=== PATIENT | female | born 1970 | race Caucasian/White ===

== ENCOUNTER 2018-10-16 13:59 | Emergency (ER) | payer MEDICAID, SELFPAY ==
[2018-10-16 14:00] VITALS: BP 150/88; PULSE 101; PULSE 88; RESP 20; TEMP 36.6; O2SAT 96; O2SAT 97; BMI 29.0
--- NOTE | 2018-10-16 14:22 | EKG12_ITS ---
Test Reason : CP Blood Pressure : / mmHG Vent. Rate : 090 BPM Atrial Rate : 090 BPM P-R Int : 172 ms QRS Dur : 102 ms QT Int : 372 ms P-R-T Axes : 053 -53 064 degrees QTc Int : 455 ms Normal sinus rhythm Left axis deviation Septal infarct , age undetermined Abnormal ECG Confirmed by RICHY BURCH ([id number]), publishing editor GELA MCLAIN ([id number] on 10/21/2018 2:43:34 PM Referred By: ORLY Confirmed By:SARAH BURCH
--- NOTE | 2018-10-16 14:22 | ED.VIS.CHEST ---
History of Present Illness Chief Complaint: Chest Pain Informant: Patient Onset: Hours - 2.5 Activity at onset: Rest - just after eating yogurt/lunch Timing: Continuous Quality: Pain Location: Left Chest Current Severity: 10/10 Maximum Severity: 10/10 Worsened By: Nothing Relieved By: Nothing - hasn't tried any medications Associated Symptoms: - - anxious. Negative for: Nausea, Vomiting, Diaphoresis, Dyspnea, Cough, Fever, Lightheadedness, Palpitations Narrative: Patient is been having symptoms for over a month, she gets them daily. Today it is particularly severe and started just after eating while at rest. It is nonpleuritic discomfort. It occasionally radiates into her left arm but not now. She denies any new symptoms, saying that this is the same discomfort that she typically gets. She was admitted 3-4 weeks ago at [facility] for the same symptoms where she had a repeat echocardiogram showing a stable 30% ejection fraction and what appeared to be a chronic LV thrombus for which she is on aspirin. She had a heart catheterization last year that showed severe diffuse disease of her distal LAD, she was sent to [facility] for further evaluation of that and determined that it did not need any intervention at her other studies for possible connective tissue disorder were unremarkable. She states Ativan tends to help her symptoms. She has never tried antacids that she can recall recently. Prior Similar Symptoms: Yes Recent Illness/Hospitalization: Yes - [facility] September 2018 for same sx - Past Medical History (1) CAD (coronary artery disease), [place] coronary artery Status: Chronic (2) CHF (congestive heart failure) Status: Chronic (3) HTN (hypertension) Status: Chronic (4) Diabetes mellitus, type 2 Status: Chronic (5) Hyperlipidemia Status: Chronic (6) GERD (gastroesophageal reflux disease) Status: Chronic Past Medical History - Allergies and Home Meds Allergies/Adverse Reactions: Allergies latex Allergy (Verified 10/16/18 14:00) Hives Primary Care Physician: Ezra Doctor,Out of [Primary Care Provider] - Smoking Status: Current every day smoker Drugs: None Review of Systems General: Denies: Chills, Fever, Sweats Eyes: Denies: Visual changes - bilaterally, Diplopia ENT: Denies: Rhinorrhea, Sore throat Cardiovascular: Reports: Chest pain. Denies: Palpitations Respiratory: Denies: Dyspnea, Cough, Dyspnea on exertion Gastrointestinal: Denies: Abdominal pain, Nausea, Vomiting, Diarrhea, Melena, Hematochezia Genitourinary: Denies: Dysuria, Hematuria, Frequency Musculoskeletal: Denies: Neck pain, Swelling, Extremity Pain Skin: Denies: Rash, Wounds Neurological: Denies: Headache, Weakness, Numbness Psych: Reports: Anxiety. Denies: Suicidal thoughts Allergy: Denies: Swelling of the mouth, Swelling of the tongue Physical Exam Vital Signs/Narrative: Vital Signs Temp Pulse Resp BP Pulse Ox 10/16/18 14:00 97.9 F 88 20 H 150/88 H 96 Inital Vital Signs reviewed: Yes General: Well nourished, Well developed, No Acute Distress Head: Normocephalic, Atraumatic Eyes: Perrl, EOMI ENT: Moist mucous membranes, No rhinorrhea Neck: Supple, Nontender Cardiovascular: Regular rate, Regular rhythm, No murmurs, Normal S1, Normal S2 Respiratory: No distress, Chest nontender, Wheezing - occ inspiratory. Negative for: Rales, Rhonchi Abdomen: Soft, Nondistended, Normal bowel sounds, Tender - mild epigastric. Negative for: Guarding, Rebound tenderness Back: Nontender, Normal Inspection Extremities: Nontender, No edema. Negative for: Calf Tenderness Skin: Normal color, No rash, No Trauma Neurological: Alert, Oriented x3, Cranial nerves II-XII grossly intact, Normal Strength, Normal Sensation, Normal Gait Psychological: Tearful - and anxious Diagnostic/Tx/Re-eval Impressions Chest X-Ray 10/16/18 14:23 IMPRESSION: No acute cardiopulmonary process. Electronically Signed: Garrett Barahona MD at 15:22 EDT Tel , Service support , 10/16/18 14:23 Chest 1 View (Portable) [RAD] Stat Laboratory Results 10/16/18 10/16/18 14:10 14:10 WBC 13.6 H RBC 5.32 Hgb 15.2 H Hct 44.6 MCV 83.8 MCH 28.6 MCHC 34.1 RDW 13.2 RDW Differential 39.8 Plt Count 258 MPV 10.1 Immature Gran % (Auto) 0.100 Neut % (Auto) 70.1 H Lymph % (Auto) 22.2 [place] % (Auto) 5.5 Eos % (Auto) 1.8 Baso % (Auto) 0.3 Absolute Neuts (auto) 9.6 H Absolute Lymphs (auto) 3.03 Total Counted Not Reportable Sodium 140 Potassium 4.0 Chloride 104 Carbon Dioxide 30.0 Anion Gap 6 BUN 8 Creatinine 0.88 Estim Creat Clear Calc 76.85 Est GFR (MDRD) Af Amer 89 Est GFR (MDRD) Non-Af 74 BUN/Creatinine Ratio 9.1 L Glucose 165 H Calcium 9.2 Troponin I < 0.015 - Rhythm Strip Rhythm Strip: Sinus Rhythm Rate: 90 Ectopy: None - EKG Initial EKG Interpretation: Sinus Rhythm, No Acute Injury Pattern, - - left axis. anterior Q waves w/o acute injury. Prior: Unchanged REINA Risk: H/O CAD, ASA within 7 days Score: 2 - Medical Decision Making Work-up unremarkable. Patient felt only mildly improved after GI cocktail. She was additionally given Ativan and morphine which helped her before, she states she feels much better and the discomfort is barely there. Plan is for a 3-hour repeat troponin, and if negative I feel she is stable to be discharged home given the recent events during her previous admission at [facility]. ED Disposition - Plan for ED Patient: Disposition: Home or Assisted Living Diagnosis: Chest pain, unspecified, Anxiety Instructions: ED Chest Pain Atypical Unkn Cause Referrals: [facility] Doctor,Out of [Primary Care Provider] - 3-5 Days
--- NOTE | 2018-10-16 14:23 | RAD_ITS ---
STUDY: X-RAY CHEST REASON FOR EXAM: Female, 48 years old. Chest pain TECHNIQUE: Portable chest COMPARISON: 09/01/2014 FINDINGS: The lungs are clear and expanded. Normal cardiomediastinal silhouette, edmundo and pleural margins. No acute osseous or upper abdominal process. RAD/Chest 1 View (Portable) IMPRESSION: No acute cardiopulmonary process. Electronically Signed: Garrett Barahona MD at 15:22 EDT Tel , Service support ,
--- NOTE | 2018-10-16 14:27 | ED.DCSUM_ITS ---
History of Present Illness Chief Complaint: Chest Pain Informant: Patient Onset: Hours - 2.5 Activity at onset: Rest - just after eating yogurt/lunch Timing: Continuous Quality: Pain Location: Left Chest Current Severity: 10/10 Maximum Severity: 10/10 Worsened By: Nothing Relieved By: Nothing - hasn't tried any medications Associated Symptoms: - - anxious. Negative for: Nausea, Vomiting, Diaphoresis, Dyspnea, Cough, Fever, Lightheadedness, Palpitations Narrative: Patient is been having symptoms for over a month, she gets them daily. Today it is particularly severe and started just after eating while at rest. It is nonpleuritic discomfort. It occasionally radiates into her left arm but not now. She denies any new symptoms, saying that this is the same discomfort that she typically gets. She was admitted 3-4 weeks ago at [facility] for the same symptoms where she had a repeat echocardiogram showing a stable 30% ejection fraction and what appeared to be a chronic LV thrombus for which she is on aspirin. She had a heart catheterization last year that showed severe diffuse disease of her distal LAD, she was sent to [facility] for further evaluation of that and determined that it did not need any intervention at her other studies for possible connective tissue disorder were unremarkable. She states Ativan tends to help her symptoms. She has never tried antacids that she can recall recently. Prior Similar Symptoms: Yes Recent Illness/Hospitalization: Yes - [facility] September 2018 for same sx - Past Medical History (1) CAD (coronary artery disease), [place] coronary artery Status: Chronic (2) CHF (congestive heart failure) Status: Chronic (3) HTN (hypertension) Status: Chronic (4) Diabetes mellitus, type 2 Status: Chronic (5) Hyperlipidemia Status: Chronic (6) GERD (gastroesophageal reflux disease) Status: Chronic Past Medical History - Allergies and Home Meds Allergies/Adverse Reactions: Allergies latex Allergy (Verified 10/16/18 14:00) Hives Primary Care Physician: Ezra Doctor,Out of [Primary Care Provider] - Smoking Status: Current every day smoker Drugs: None Review of Systems General: Denies: Chills, Fever, Sweats Eyes: Denies: Visual changes - bilaterally, Diplopia ENT: Denies: Rhinorrhea, Sore throat Cardiovascular: Reports: Chest pain. Denies: Palpitations Respiratory: Denies: Dyspnea, Cough, Dyspnea on exertion Gastrointestinal: Denies: Abdominal pain, Nausea, Vomiting, Diarrhea, Melena, Hematochezia Genitourinary: Denies: Dysuria, Hematuria, Frequency Musculoskeletal: Denies: Neck pain, Swelling, Extremity Pain Skin: Denies: Rash, Wounds Neurological: Denies: Headache, Weakness, Numbness Psych: Reports: Anxiety. Denies: Suicidal thoughts Allergy: Denies: Swelling of the mouth, Swelling of the tongue Physical Exam Vital Signs/Narrative: Vital Signs Temp Pulse Resp BP Pulse Ox 10/16/18 14:00 97.9 F 88 20 H 150/88 H 96 Inital Vital Signs reviewed: Yes General: Well nourished, Well developed, No Acute Distress Head: Normocephalic, Atraumatic Eyes: Perrl, EOMI ENT: Moist mucous membranes, No rhinorrhea Neck: Supple, Nontender Cardiovascular: Regular rate, Regular rhythm, No murmurs, Normal S1, Normal S2 Respiratory: No distress, Chest nontender, Wheezing - occ inspiratory. Negative for: Rales, Rhonchi Abdomen: Soft, Nondistended, Normal bowel sounds, Tender - mild epigastric. Negative for: Guarding, Rebound tenderness Back: Nontender, Normal Inspection Extremities: Nontender, No edema. Negative for: Calf Tenderness Skin: Normal color, No rash, No Trauma Neurological: Alert, Oriented x3, Cranial nerves II-XII grossly intact, Normal Strength, Normal Sensation, Normal Gait Psychological: Tearful - and anxious Diagnostic/Tx/Re-eval Impressions Chest X-Ray 10/16/18 14:23 IMPRESSION: No acute cardiopulmonary process. Electronically Signed: Garrett Barahona MD at 15:22 EDT Tel , Service support , 10/16/18 14:23 Chest 1 View (Portable) [RAD] Stat Laboratory Results 10/16/18 10/16/18 14:10 14:10 WBC 13.6 H RBC 5.32 Hgb 15.2 H Hct 44.6 MCV 83.8 MCH 28.6 MCHC 34.1 RDW 13.2 RDW Differential 39.8 Plt Count 258 MPV 10.1 Immature Gran % (Auto) 0.100 Neut % (Auto) 70.1 H Lymph % (Auto) 22.2 [place] % (Auto) 5.5 Eos % (Auto) 1.8 Baso % (Auto) 0.3 Absolute Neuts (auto) 9.6 H Absolute Lymphs (auto) 3.03 Total Counted Not Reportable Sodium 140 Potassium 4.0 Chloride 104 Carbon Dioxide 30.0 Anion Gap 6 BUN 8 Creatinine 0.88 Estim Creat Clear Calc 76.85 Est GFR (MDRD) Af Amer 89 Est GFR (MDRD) Non-Af 74 BUN/Creatinine Ratio 9.1 L Glucose 165 H Calcium 9.2 Troponin I < 0.015 - Rhythm Strip Rhythm Strip: Sinus Rhythm Rate: 90 Ectopy: None - EKG Initial EKG Interpretation: Sinus Rhythm, No Acute Injury Pattern, - - left axis. anterior Q waves w/o acute injury. Prior: Unchanged REINA Risk: H/O CAD, ASA within 7 days Score: 2 - Medical Decision Making Work-up unremarkable. Patient felt only mildly improved after GI cocktail. She was additionally given Ativan and morphine which helped her before, she states she feels much better and the discomfort is barely there. Plan is for a 3-hour repeat troponin, and if negative I feel she is stable to be discharged home given the recent events during her previous admission at [facility]. ED Disposition - Plan for ED Patient: Disposition: Home or Assisted Living Diagnosis: Chest pain, unspecified, Anxiety Instructions: ED Chest Pain Atypical Unkn Cause Referrals: [facility] Doctor,Out of [Primary Care Provider] - 3-5 Days
[2018-10-16] MEDS: Mag Hydrox/Al Hydrox/Simeth 30 ML UDC PO (14:31)
[2018-10-16 14:49] LABS: Absolute Lymphocyte Count 3.03 X10^3/ul (0.83-4.51); Absolute Neutrophil Count 9.6 X10^3/uL (2.0-7.7); Anion Gap 6 (5-15); BUN 8 mg/dL (7-18); BUN/Creat Ratio 9.1 RATIO (10-20); Basophil# 0.04 X10^3/uL; Basophil% 0.3 % (0-1); Calcium,Total 9.2 mg/dL (8.5-10.1); Chloride 104 mmol/L (98-107); Creatinine, Serum 0.88 mg/dL (0.55-1.02); EST Glomerular Filtration Rate 74 mL/min (>60); Eosinophil# 0.25 X10^3/uL; Eosinophils% 1.8 % (0-5); Est Glom Filt Rate - Afr Amer 89 mL/min (>60); Estimated Creatinine Clearance 76.85 ml/min; Glucose 165 mg/dL (74-106); Hematocrit 44.6 % (37-47); Hemoglobin 15.2 g/dl (12.0-15.0); Lymphocyte # 3.03 X10^3/ul (4.0); Lymphocyte % 22.2 % (19-41); Mean Corp Hgb Conc 34.1 g/gl (32-36); Mean Corpuscular Hgb 28.6 pg (27.0-32.0); Mean Corpuscular Volume 83.8 fL (81-99); Mean Platelet Vol. 10.1 fl (6.2-12.0); Monocyte# 0.75 X10^3/uL; Monocyte% 5.5 % (0-10); Neutrophil # 9.56 X10^3/uL (2.7-7.7); Neutrophil % 70.1 % (47-70); POSITIVE COUNT NO; POSITIVE DIFFERENTIAL NO; POSITIVE MORPHOLOGY NO; Platelet Count 258 K/mm3 (150-450); RBC Distribution Width CV 13.2 % (11.6-14.6); RBC Distribution Width SD 39.8 fl (35.1-43.9); Red Blood Count 5.32 M/mm3 (4.2-5.4); Sodium Level 140 mmol/L (136-145); White Blood Count 13.6 K/mm3 (4.4-11.0)
[2018-10-16 15:04] VITALS: BP 139/86; PULSE 77; RESP 19; O2SAT 99
[2018-10-16] MEDS: Morphine 4 MG/ML Syringe IV (15:48)
[2018-10-16] MEDS: LORazepam 2 MG/ML Syringe 0.5 MG IV (15:48)
[2018-10-16 16:02] VITALS: BP 139/86; PULSE 74; RESP 18; O2SAT 99
[2018-10-16 17:11] VITALS: BP 116/75; PULSE 77; RESP 15; O2SAT 95
[2018-10-16 18:08] VITALS: BP 136/89; PULSE 75; PULSE 76; RESP 18; O2SAT 99
== END 2018-10-16 18:09 | disposition home or self-care (01) ==
PROVIDERS: Emergency Provider Emergency Medicine
DX: R07.9 Chest pain, unspecified (principal); F41.9 Anxiety disorder, unspecified; I25.10 Atherosclerotic heart disease of native coronary artery without angina pectoris; I11.0 Hypertensive heart disease with heart failure; I50.9 Heart failure, unspecified; E11.9 Type 2 diabetes mellitus without complications; E78.5 Hyperlipidemia, unspecified; K21.9 Gastro-esophageal reflux disease without esophagitis; F17.200 Nicotine dependence, unspecified, uncomplicated; Z91.040 Latex allergy status
CPT/HCPCS: 36415; 71045; 80048; 84484; 85025; 93005; 96374; 96375; 99284; A4216

== ENCOUNTER 2018-10-21 09:39 | Emergency (ER) | payer MEDICAID, SELFPAY ==
[2018-10-21 09:40] VITALS: BP 138/83; PULSE 112; RESP 22; TEMP 36.6; O2SAT 99; BMI 27.3
--- NOTE | 2018-10-21 10:02 | EKG12_ITS ---
Test Reason : SOB/CP Blood Pressure : / mmHG Vent. Rate : 107 BPM Atrial Rate : 107 BPM P-R Int : 148 ms QRS Dur : 098 ms QT Int : 352 ms P-R-T Axes : 057 -55 066 degrees QTc Int : 469 ms Sinus tachycardia Left axis deviation Septal infarct (cited on or before 06-MAR-2014), age undetermined Abnormal ECG Confirmed by TOÑO HERNANDEZ, MELVINA ([id number]), acquisitions editor FELICIA HOLCOMB ([id number]) on 10/24/2018 1:10:24 PM Referred By: DAKOTA Confirmed By:MELVINA LUNDBERG MD
--- NOTE | 2018-10-21 10:02 | RAD_ITS ---
STUDY: X-RAY CHEST REASON FOR EXAM: Female, 48 years old. Shortness of breath/dyspnea. TECHNIQUE: Single AP portable view of the chest. COMPARISON: Comparison is made with prior study dated October 16, 2018. FINDINGS: EKG electrodes are seen. The lungs are clear and expanded. Scattered calcified granulomas. There is no demonstrated pleural abnormality. Normal size heart. Normal mediastinum and edmundo. Normal visualized pulmonary arteries. Normal visualized aortic arch and descending thoracic aorta. Normal visualized thoracic spine. Normal visualized ribs, clavicles, and shoulders. There is no demonstrated abnormality of the visualized soft tissue structures of the upper abdomen. RAD/Chest 1 View (Portable) IMPRESSION: Normal x-ray examination of the chest. Electronically Signed: Ryan Tejeda, at 10:44 EDT , Service support ,
--- NOTE | 2018-10-21 10:11 | ED.DCSUM_ITS ---
- ER Visit Summary Date of Service: 10/21/18 Chief Complaint: Short of breath, nausea, chest pain History of Present Illness: The patient is a 48 F reports intermittent chest pain shortness of breath for quite some time. Patient states her PCP thought was related to reflux. Patient states the pain and shortness of breath worsened yesterday. She did have some mild vomiting yesterday. Patient has had prior heart cath and states she is a history of coronary disease. She does not have any stents. She told me she had a blood clot in my heart last year. She is not on anticoagulants. Physical Examination: Vital signs significant for heart rate of 112, otherwise unremarkable. Patient lying in bed. She is anxious and tearful. Heart is tachycardic and regular. Lung sounds are clear. She has parasternal chest wall tenderness. There is no crepitus. Abdomen is soft with mild epigastric tenderness. No guarding or rebound. Lower extremity examination was no calf tenderness or edema. Test Results: EKG is sinus tach at 107 with no acute ischemia. Portal chest x- ray is unremarkable. CBC significant for hemoglobin 15.5. Chemistry studies significant for glucose of 273. LFTs and lipase normal. Troponin and d-dimer are both negative. Emergency Department Course and Treatment: I found that patient was seen at a [facility] facility last night in the emergency room. At that time she had negative troponins x2 and an unremarkable overall work-up. Patient's work- up continues to be unremarkable. She does have reproducible chest wall tenderness. She be discharged with a short course of Toradol and redness own. She was advised her blood sugars will elevate while she is on steroids. She now tells me she has an appointment with a currency examiner in [place] tomorrow. Treatment Plan: [] Disposition: Discharge Impression: Chest wall pain This note was generated with [employer] dictation software. It may contain incorrect words, spelling, and punctuation that were not noted in review of the chart prior to signing ED Disposition - Plan for ED Patient: Disposition: Home or Assisted Living Instructions: ED Chest Pain Costochondritis Prescriptions: Prednisone [Deltasone] 40 mg PO DAILY #10 tablet Ketorolac [Toradol] 10 mg PO Q6H PRN #14 tablet PRN Reason: Pain Referrals: [facility] Doctor,Out of [NON-STAFF] -
[2018-10-21] MEDS: Morphine 4 MG/ML Syringe IV (10:35)
[2018-10-21] MEDS: Ondansetron 4 MG/2 ML Vial IV (10:36)
[2018-10-21] MEDS: 0.9% Normal Saline 1,000 ML 150 ML IV (10:36)
[2018-10-21 10:37] LABS: Absolute Lymphocyte Count 2.42 X10^3/ul (0.83-4.51); Absolute Neutrophil Count 5.8 X10^3/uL (2.0-7.7); Basophil% 1.1 % (0-1); D-Dimer Quantitative (DVT/PE) < 0.27 FEU/ug/m (0.27-0.49); Eosinophil# 0.09 X10^3/uL; Hematocrit 45.4 % (37-47); Hemoglobin 15.5 g/dl (12.0-15.0); Lymphocyte # 2.42 X10^3/ul (4.0); Lymphocyte % 26.7 % (19-41); Mean Corp Hgb Conc 34.1 g/gl (32-36); Mean Corpuscular Hgb 28.2 pg (27.0-32.0); Mean Corpuscular Volume 82.5 fL (81-99); Mean Platelet Vol. 9.6 fl (6.2-12.0); Monocyte# 0.69 X10^3/uL; Monocyte% 7.6 % (0-10); Neutrophil # 5.76 X10^3/uL (2.7-7.7); Neutrophil % 63.6 % (47-70); Platelet Count 209 K/mm3 (150-450); RBC Distribution Width CV 12.9 % (11.6-14.6); RBC Distribution Width SD 39.2 fl (35.1-43.9); White Blood Count 9.1 K/mm3 (4.4-11.0)
[2018-10-21 10:38] VITALS: BP 117/88; PULSE 109; RESP 24; O2SAT 98
[2018-10-21 10:41] LABS: Differential Indicated SCAN CRITERIA MET; POSITIVE COUNT NO; POSITIVE DIFFERENTIAL NO; POSITIVE MORPHOLOGY YES
[2018-10-21 10:48] LABS: AST(SGOT) 19 U/L (15-37); Alanine Aminotransfer ALT/SGPT 20 U/L (13-56); Albumin, Serum 3.3 g/dL (3.2-5.0); Alkaline Phosphatase 103 U/L (45-117); Anion Gap 7 (5-15); BUN 7 mg/dL (7-18); BUN/Creat Ratio 8.7 RATIO (10-20); Bilirubin, Direct 0.21 mg/dL (0.00-0.30); Calcium,Total 8.8 mg/dL (8.5-10.1); Chloride 103 mmol/L (98-107); Creatinine, Serum 0.81 mg/dL (0.55-1.02); EST Glomerular Filtration Rate 81 mL/min (>60); Est Glom Filt Rate - Afr Amer 98 mL/min (>60); Globulin 3.7 g/dL (2.2-4.2); Glucose 273 mg/dL (74-106); Lipase 76 U/L (73-393); Potassium 3.6 mmol/L (3.5-5.1); Sodium Level 137 mmol/L (136-145)
[2018-10-21 12:22] VITALS: BP 139/68; PULSE 89; RESP 15; O2SAT 97
== END 2018-10-21 12:25 | disposition home or self-care (01) ==
PROVIDERS: Emergency Provider Emergency Medicine; Family Provider Student in an Organized Health Care Education/Training Program; PCP Student in an Organized Health Care Education/Training Program
DX: R07.89 Other chest pain (principal); R11.2 Nausea with vomiting, unspecified; R06.09 Other forms of dyspnea; I25.10 Atherosclerotic heart disease of native coronary artery without angina pectoris; E11.9 Type 2 diabetes mellitus without complications; I10 Essential (primary) hypertension; E78.00 Pure hypercholesterolemia, unspecified; K21.9 Gastro-esophageal reflux disease without esophagitis; Z72.0 Tobacco use; Z79.4 Long term (current) use of insulin; Z79.82 Long term (current) use of aspirin
CPT/HCPCS: 71045; 80048; 80076; 83690; 84484; 85025; 85379; 93005; 96361; 96374; 96375; 99284; J7030; J2405

== ENCOUNTER 2020-08-11 10:57 | Emergency (ER) | payer MEDICAID, SELFPAY ==
[2020-08-11 10:58] VITALS: BP 157/110; PULSE 152; RESP 24; TEMP 36.6; O2SAT 99; BMI 28.1
--- NOTE | 2020-08-11 11:01 | ED.RN ---
PT TO ROOM-CALLED FOR EKG
--- NOTE | 2020-08-11 11:10 | CT_ITS ---
STUDY: CT ABDOMEN AND PELVIS WITH CONTRAST REASON FOR EXAM: Female, 49 years old. right abd pain RADIATION DOSAGE (If Supplied By Facility): CTDIvol = ( 17.655 ) mGy, DLP = ( 1183.22 ) mGycm TECHNIQUE: Transaxial images were obtained from the dome of the diaphragm to the symphysis pubis without oral contrast. IV 100mL Isovue-300 was administered. Sagittal and coronal images were reconstructed. Individualized dose optimization techniques were used for this CT. COMPARISON: None. FINDINGS: The visualized lung bases are unremarkable. The visualized portions of the heart are within normal limits. Normal liver. There are surgical clips in the gallbladder fossa consistent with a prior cholecystectomy. Normal spleen. Normal pancreas. There are small, circumscribed, smooth, low attenuation bilateral adrenal masses, consistent with an adrenal adenoma. Normal right kidney. There is a cyst in the left kidney measures 2 cm. Normal visualized stomach. Normal small intestine. There are multiple colonic diverticula consistent with diverticulosis. There are surgical clips in the region of the appendix consistent with a prior appendectomy. Normal abdominal aorta. Normal inferior vena cava. Normal retroperitoneum. Normal urinary bladder. Normal abdominal wall. Normal osseous structures. CT/Abdomen/Pelvis W IV Cont ONLY IMPRESSION: There is a cyst in the left kidney measures 2 cm. Electronically Signed: Jarred Gross MD at 13:45 EST Tel , Service support ,
--- NOTE | 2020-08-11 11:10 | EKG12_ITS ---
Test Reason : CP Blood Pressure : / mmHG Vent. Rate : 135 BPM Atrial Rate : 135 BPM P-R Int : 140 ms QRS Dur : 104 ms QT Int : 284 ms P-R-T Axes : 040 -55 083 degrees QTc Int : 426 ms Sinus tachycardia with occasional Premature ventricular complexes and Fusion complexes Left axis deviation Septal infarct , age undetermined Abnormal ECG Confirmed by KIERSTEN HERNANDEZ, RICHY ([id number]), metropolitan editor FELICIA HOLCOMB ([id number]) on 08/16/2020 10:15:09 A M Referred By: ROXANNE Confirmed By:SARAH BURCH MD
[2020-08-11 11:13] VITALS: BP 161/102; PULSE 136; RESP 22; TEMP 36.6; O2SAT 99
--- NOTE | 2020-08-11 11:16 | ED.VISSUMM ---
- ER Visit Summary Date of Service: 08/11/20 Chief Complaint: Abdominal pain History of Present Illness: The patient is a 49 F with right side abdominal pain over the past month. The pain is intermittent and severe. It radiates to her right side back. She said nothing seems to bring it on or make it worse. Associate with nausea, vomiting, diarrhea. Denies urinary symptoms. Denies fever. Denies bleeding. Reports a history of hernia repair remotely, cholecystectomy, and diverticulitis. She also has a history of coronary disease, CHF, diabetes, hypertension, hyperlipidemia. She is not compliant with her treatments. Physical Examination: Hypertensive, tachycardic, tachypneic, tearful. Right side abdominal tenderness. No guarding or rebound. Otherwise exam fairly unremarkable. Test Results: Labs, urine, CT pending. Emergency Department Course and Treatment: Patient was placed on a monitor. EKG showed sinus tachycardia with PVCs at a rate of 135. No sign of acute ischemia or infarction pattern. IV access obtained. She was treated with fluids, Zofran, morphine. Will check labs, urinalysis, CT. Hemoglobin 16.4, sodium 133, CO2 25, anion gap 10, glucose 452, BUN 6, total bilirubin 1.2, alkaline phosphatase 125, lipase normal. hCG negative. CT and urinalysis still pending at this time. Patient was treated with IV fluids and insulin subcutaneous. She is hyperglycemic but does not have signs of acidosis. Anion gap is normal. CO2 is 25. Recheck is pending. Patient had one isolated low blood pressure 95/45. Repeat without any intervention was 130 systolic. I believe this was an anomaly. On further recheck, her blood pressure has been normal and stable. Heart rate is in the low 100s. Patient requested additional medicine for pain. She was ordered additional dose of morphine. Repeat glucose pending. Urinalysis and CT pending at the time of this entry. Repeat blood sugar was 348. Patient is drinking fluids. Received IV fluids. I spoke with her, and she actually has her medications and does not need refills or new supplies. The importance of these medications was discussed. CT shows a left kidney cyst measuring 2 cm. Nothing to explain her symptoms or pain. Patient will be referred for outpatient follow-up. She was referred to a local primary care doctor. Treatment Plan: As above Disposition: Discharge Impression: Abdominal pain, hyperglycemia This note was generated with Dragon dictation software. It may contain incorrect words, spelling, and punctuation that were not noted in review of the chart prior to signing ED Disposition - Plan for ED Patient: Referrals: NOT,DEFINED [NON-STAFF] -
[2020-08-11] MEDS: Ondansetron 4 MG/2 ML Vial IV (11:27)
[2020-08-11] MEDS: 0.9% Normal Saline 1,000 ML 1000 ML IV (11:27)
[2020-08-11] MEDS: Morphine 4 MG/ML Syringe IV ×2 (11:28→13:33)
[2020-08-11 11:30] LABS: Absolute Lymphocyte Count 2.06 X10^3/uL (0.83-4.51); Absolute Neutrophil Count 7.8 X10^3/uL (2.0-7.7); Basophil# 0.06 X10^3/uL; Basophil% 0.6 % (0-1); Eosinophil# 0.06 X10^3/uL; Eosinophils% 0.6 % (0-5); Hematocrit 48.5 % (37-47); Hemoglobin 16.4 g/dL (12.0-15.0); Lymphocyte # 2.06 X10^3/ul (4.0); Lymphocyte % 19.7 % (19-41); Mean Corp Hgb Conc 33.8 g/dL (32-36); Mean Corpuscular Volume 82.8 fL (81-99); Mean Platelet Vol. 10.6 fl (6.2-12.0); Monocyte# 0.47 X10^3/uL; Monocyte% 4.5 % (0-10); NRBC Flagged by Analyzer 0 % (0-5); Neutrophil # 7.78 X10^3/uL (2.7-7.7); Neutrophil % 74.1 % (47-70); Platelet Count 263 K/mm3 (150-450); RBC Distribution Width CV 12.7 % (11.6-14.6); RBC Distribution Width SD 38.3 fl (35.1-43.9); Red Blood Count 5.86 M/mm3 (4.2-5.4); White Blood Count 10.5 K/mm3 (4.4-11.0)
[2020-08-11 11:40] LABS: Internal QC Validated? YES +Cl - CLEAR BKGD; Pregnancy, Serum, hCG Quali. NEGATIVE Negative
[2020-08-11 11:55] LABS: AST(SGOT) 30 U/L (15-37); Alanine Aminotransfer ALT/SGPT 23 U/L (13-56); Albumin, Serum 3.6 g/dL (3.2-5.0); Alkaline Phosphatase 125 U/L (45-117); Anion Gap 10 (5-15); BUN 6 mg/dL (7-18); Calcium,Total 8.9 mg/dL (8.5-10.1); Chloride 98 mmol/L (98-107); Creatinine, Serum 0.86 mg/dL (0.55-1.02); EST Glomerular Filtration Rate 75 mL/min (>60); Est Glom Filt Rate - Afr Amer 91 mL/min (>60); Globulin 3.5 g/dL (2.2-4.2); Glucose 452 mg/dL (74-106); Lipase 73 U/L (73-393); Potassium 4.8 mmol/L (3.5-5.1); Protein, Total 7.1 g/dL (6.4-8.2); Sodium Level 133 mmol/L (136-145)
[2020-08-11 12:10] VITALS: BP 95/45; PULSE 109; RESP 16; TEMP 36.4; O2SAT 95
[2020-08-11] MEDS: Insulin Lispro 100 UNIT/ML INSULN.PEN 8 UNIT SC (12:28)
[2020-08-11 13:32] VITALS: BP 120/89; PULSE 109; RESP 14; TEMP 36.4; O2SAT 98
[2020-08-11 13:41] LABS: Bedside Glucose 348 mg/dL (70-110)
[2020-08-11 13:42] LABS: Bacteria 0 SEEN /hpf (None Seen); Mucous, Urine 0 SEEN /hpf (<or=2+); Red Blood Cells-Urine 0 SEEN /hpf (0-5)
[2020-08-11 13:45] LABS: Color, Urine Yellow (Yellow); Glucose, Dipstick 1000 mg/dl (Normal); Ketone-Dipstick 5 mg/dl (Negative); Leukocyte Esterase-Dipstick 100 /ul (Negative); Nitrite-Dipstick Negative (Negative); Occult Blood-Urine 10 /ul (Negative); Protein-Dipstick 15 mg/dl (Negative); Urine Bilirubin Dipstick Negative (Negative); Urine Clarity Clear (Clear); Urine Urobilinogen Normal (Normal); Urine pH 6.5 (5.0 - 8.0)
[2020-08-11 13:50] LABS: Squamous Epithelial Cells - UA 5-10 SEEN /hpf (5-10)
[2020-08-11 13:51] LABS: White Blood Cells 0-5 SEEN /hpf (0-5)
[2020-08-11 14:04] VITALS: BP 125/89; PULSE 101; RESP 15; TEMP 36.7; O2SAT 98
--- NOTE | 2020-08-11 14:07 | ED.DEP ---
ED Disposition - Plan for ED Patient: Instructions: ED Abdominal Pain Unkn Cause Fem Prescriptions: Dicyclomine HCl [Bentyl] 20 mg PO TIDAC #20 cap Prescription Printed Referrals: Sandra Pro DO [NON-STAFF] -
== END 2020-08-11 14:20 | disposition home or self-care (01) ==
PROVIDERS: Emergency Provider Emergency Medicine
DX: R10.9 Unspecified abdominal pain (principal); R11.2 Nausea with vomiting, unspecified; R19.7 Diarrhea, unspecified; E11.65 Type 2 diabetes mellitus with hyperglycemia; N28.1 Cyst of kidney, acquired; I25.10 Atherosclerotic heart disease of native coronary artery without angina pectoris; I10 Essential (primary) hypertension; E78.5 Hyperlipidemia, unspecified; Z90.49 Acquired absence of other specified parts of digestive tract; I11.0 Hypertensive heart disease with heart failure; I50.9 Heart failure, unspecified
CPT/HCPCS: 36415; 74177; 80053; 81001; 82962; 83690; 84703; 85025; 93005; 96361; 96374; 96375; 96376; 99285; J7030; Q9967; A4216; J2405

== ENCOUNTER 2020-08-13 07:58 | Emergency (ER) | payer MEDICAID, SELFPAY ==
[2020-08-13 07:59] VITALS: BP 160/100; PULSE 134; RESP 18; TEMP 36.3; O2SAT 98; BMI 28.3
--- NOTE | 2020-08-13 08:17 | ED.VIS.GEN ---
History of Present Illness Chief Complaint: Back Informant: Patient Narrative: 49-year-old female presenting with right-sided abdominal pain in the right upper quadrant and right lower quadrant. She is status post cholecystectomy distantly. Patient denies fever or chills. Patient is having nausea. Patient states the pain is intermittent. She is not sure if it is associated with eating. General she denies constipation however she does have some diarrhea. She has no history of kidney stones. She has no urinary complaints. - Past Medical History (1) CAD (coronary artery disease), [place] coronary artery Status: Chronic (2) CHF (congestive heart failure) Status: Chronic (3) GERD (gastroesophageal reflux disease) Status: Chronic (4) HTN (hypertension) Status: Chronic (5) Hyperlipidemia Status: Chronic Past Medical History - Allergies and Home Meds Allergies/Adverse Reactions: Allergies latex Allergy (Verified 08/13/20 07:59) Hives Primary Care Physician: Care Physician,No Primary [Primary Care Provider] - Prior records reviewed: Yes Past Medical History: - - Reviewed in problem list Lives: Spouse/ Significant Other Smoking Status: Current every day smoker Alcohol: None Drugs: None Review of Systems General: Denies: Chills, Fever, Sweats Eyes: Denies: Visual changes - bilaterally, Diplopia ENT: Denies: Rhinorrhea, Sore throat Cardiovascular: Denies: Chest pain, Palpitations Respiratory: Denies: Dyspnea, Cough, Dyspnea on exertion Gastrointestinal: Reports: Abdominal pain, Nausea, Diarrhea. Denies: Constipation, Melena Genitourinary: Denies: Dysuria, Hematuria, Frequency Musculoskeletal: Denies: Myalgias, Arthralgias, Neck pain Skin: Denies: Rash, Abscess, Abrasions Neurological: Denies: Headache, Weakness, Parasthesia Psych: Denies: Depression, Anxiety, Suicidal thoughts, Suicidal ideations Physical Exam Vital Signs/Narrative: Vital Signs Temp Pulse Resp BP Pulse Ox 08/13/20 07:59 97.4 F L 134 H 18 160/100 H 98 General: Obese, No Acute Distress Head: Normocephalic, Atraumatic Eyes: Perrl, EOMI ENT: Moist mucous membranes, No rhinorrhea Cardiovascular: Regular rhythm, Tachycardia Respiratory: No distress, CTA bilaterally Abdomen: Soft, Nondistended, Tender - Tenderness to palpation right upper and right lower quadrants. Back: CVA tenderness - Right-sided CVA tenderness.. Negative for: Spinal tenderness Extremities: Nontender, No edema Skin: Normal color, No rash. Negative for: Cyanosis, Diaphoresis Neurological: Alert, Oriented x3, Cranial nerves II-XII grossly intact Psychological: Normal affect, Normal Mood Diagnostic/Tx/Re-eval Clinical Impression(s) from Imaging Studies Abdomen/Pelvis CT 08/13/20 10:34 IMPRESSION: Sigmoid diverticulosis.. There are small, circumscribed, smooth, low attenuation bilateral adrenal masses, consistent with an adrenal adenoma. There is a left renal cyst measures 2 cm. Electronically Signed: Jarred Gross MD at 12:39 EST Tel , Service support , Laboratory Data 08/13/20 08/13/20 08/13/20 08:35 08:35 09:45 WBC 8.6 RBC 6.07 H Hgb 17.0 H Hct 51.4 H MCV 84.7 MCH 28.0 MCHC 33.1 RDW Std Deviation 39.1 RDW Coeff of [place] 13.2 Plt Count 204 MPV 10.3 Immature Gran % (Auto) 0.400 Neut % (Auto) 74.4 H Lymph % (Auto) 19.4 [place] % (Auto) 4.4 Eos % (Auto) 0.8 Baso % (Auto) 0.6 Absolute Neuts (auto) 6.4 Absolute Lymphs (auto) 1.66 Nucleated RBC % 0 Sodium 135 L Potassium 4.0 Chloride 100 Carbon Dioxide 26.0 Anion Gap 9 BUN 5 L Creatinine 0.84 Estim Creat Clear Calc 79.65 Est GFR (MDRD) Af Amer 92 Est GFR (MDRD) Non-Af 76 BUN/Creatinine Ratio 5.9 L Glucose 405 H Calcium 9.4 Total Bilirubin 0.90 AST 21 ALT 21 Alkaline Phosphatase 143 H Total Protein 7.4 Albumin 3.6 Globulin 3.8 Albumin/Globulin Ratio 0.9 Lipase 78 Urine Color Yellow Urine Clarity Clear Urine pH 6.0 Ur Specific [place] 1.015 Urine Protein 15 H Urine Glucose (UA) 1000 H Urine Ketones 50 H Urine Occult Blood Negative Urine Nitrite Negative Urine Bilirubin Negative Urine Urobilinogen Normal Ur Leukocyte Esterase 25 H Urine RBC 0 SEEN Urine WBC 0-5 SEEN Ur Squamous Epith Cells 0-5 SEEN Urine Bacteria 0 SEEN Urine Mucus 0 SEEN - Medical Decision Making 49-year-old female presenting with right flank pain. She is previously been seen for this. She had a CT of the abdomen pelvis which was negative. Its noted that on her previous visit she had some hematuria. Testing today does not show this. Patient does not have a leukocytosis. Renal function and electrolytes are normal. Patient had repeat CT without contrast to determine if she has a kidney stone. This does show bilateral adrenal adenomas and a left renal cyst which I do not believe are the source of her pain. She is counseled on these findings. Patient counseled she will need to follow-up outpatient if she continues to have pain. She is given return precautions. Impression: 1. Right flank pain ED Disposition - Plan for ED Patient: Disposition: Home or Assisted Living Instructions: ED Flank Pain, Uncertain Cause Referrals: Care Physician,No Primary [Primary Care Provider] - Additional Instructions: You have incidental findings of adrenal adenomas on both kidneys. You also do have a left renal cyst measuring measuring 2 cm. You will have to follow-up with your primary care physician for further evaluation, recommendations, referrals.
[2020-08-13] MEDS: 0.9% Normal Saline 1,000 ML 1000 ML IV (08:42)
[2020-08-13] MEDS: Morphine 4 MG/ML Syringe IV ×3 (08:43→12:37)
[2020-08-13] MEDS: Ondansetron 4 MG/2 ML Vial IV (08:43)
[2020-08-13 08:49] LABS: Absolute Lymphocyte Count 1.66 X10^3/uL (0.83-4.51); Absolute Neutrophil Count 6.4 X10^3/uL (2.0-7.7); Basophil# 0.05 X10^3/uL; Basophil% 0.6 % (0-1); Eosinophil# 0.07 X10^3/uL; Eosinophils% 0.8 % (0-5); Hematocrit 51.4 % (37-47); Lymphocyte # 1.66 X10^3/ul (4.0); Lymphocyte % 19.4 % (19-41); Mean Corp Hgb Conc 33.1 g/dL (32-36); Mean Corpuscular Volume 84.7 fL (81-99); Mean Platelet Vol. 10.3 fl (6.2-12.0); Monocyte# 0.38 X10^3/uL; Monocyte% 4.4 % (0-10); NRBC Flagged by Analyzer 0 % (0-5); Neutrophil # 6.38 X10^3/uL (2.7-7.7); Neutrophil % 74.4 % (47-70); Platelet Count 204 K/mm3 (150-450); RBC Distribution Width CV 13.2 % (11.6-14.6); RBC Distribution Width SD 39.1 fl (35.1-43.9); Red Blood Count 6.07 M/mm3 (4.2-5.4); White Blood Count 8.6 K/mm3 (4.4-11.0)
[2020-08-13 09:05] LABS: ALB/GLOB Ratio 0.9 RATIO (0.9-2.4); AST(SGOT) 21 U/L (15-37); Alanine Aminotransfer ALT/SGPT 21 U/L (13-56); Albumin, Serum 3.6 g/dL (3.2-5.0); Alkaline Phosphatase 143 U/L (45-117); Anion Gap 9 (5-15); BUN 5 mg/dL (7-18); BUN/Creat Ratio 5.9 RATIO (10-20); Calcium,Total 9.4 mg/dL (8.5-10.1); Chloride 100 mmol/L (98-107); Creatinine, Serum 0.84 mg/dL (0.55-1.02); EST Glomerular Filtration Rate 76 mL/min (>60); Est Glom Filt Rate - Afr Amer 92 mL/min (>60); Estimated Creatinine Clearance 79.65 ml/min; Globulin 3.8 g/dL (2.2-4.2); Glucose 405 mg/dL (74-106); Lipase 78 U/L (73-393); Protein, Total 7.4 g/dL (6.4-8.2); Sodium Level 135 mmol/L (136-145)
[2020-08-13 09:47] LABS: Bacteria 0 SEEN /hpf (None Seen); Mucous, Urine 0 SEEN /hpf (<or=2+); Red Blood Cells-Urine 0 SEEN /hpf (0-5)
[2020-08-13 09:48] LABS: Color, Urine Yellow (Yellow); Glucose, Dipstick 1000 mg/dl (Normal); Ketone-Dipstick 50 mg/dl (Negative); Leukocyte Esterase-Dipstick 25 /ul (Negative); Nitrite-Dipstick Negative (Negative); Occult Blood-Urine Negative /ul (Negative); Protein-Dipstick 15 mg/dl (Negative); Specific Gravity, Urine 1.015 (1.002-1.030); Urine Bilirubin Dipstick Negative (Negative); Urine Clarity Clear (Clear); Urine Urobilinogen Normal (Normal)
[2020-08-13 09:54] LABS: Squamous Epithelial Cells - UA 0-5 SEEN /hpf (5-10); White Blood Cells 0-5 SEEN /hpf (0-5)
[2020-08-13 10:00] VITALS: BP 137/88; PULSE 102; RESP 16; O2SAT 95
--- NOTE | 2020-08-13 10:34 | CT_ITS ---
STUDY: CT ABDOMEN AND PELVIS WITHOUT CONTRAST REASON FOR EXAM: Female, 49 years old. Right flank pain RADIATION DOSAGE (If Supplied By Facility): CTDIvol = ( 16.58 ) mGy, DLP = ( 878.07 ) mGycm TECHNIQUE: Transaxial images were obtained from the dome of the diaphragm to the symphysis pubis without oral contrast, and without intravenous contrast. Sagittal and coronal images were reconstructed. Individualized dose optimization techniques were used for this CT. COMPARISON: None. FINDINGS: The visualized lung bases are unremarkable. The visualized portions of the heart are within normal limits. Normal liver. Normal gallbladder and extrahepatic biliary system. Normal spleen. Normal pancreas. There are small, circumscribed, smooth, low attenuation bilateral adrenal masses, consistent with an adrenal adenoma. Normal right kidney. There is a left renal cyst measures 2 cm. Normal visualized stomach. Normal small intestine. There are multiple colonic diverticula consistent with diverticulosis. There are surgical clips in the region of the appendix consistent with a prior appendectomy. Normal abdominal aorta. Normal inferior vena cava. Normal retroperitoneum. Normal urinary bladder. Normal abdominal wall. Normal osseous structures. CT/Abdomen/Pelvis without Cont IMPRESSION: Sigmoid diverticulosis.. There are small, circumscribed, smooth, low attenuation bilateral adrenal masses, consistent with an adrenal adenoma. There is a left renal cyst measures 2 cm. Electronically Signed: Jarred Gross MD at 12:39 EST Tel , Service support ,
[2020-08-13 12:46] VITALS: BP 134/90; PULSE 96; RESP 16; O2SAT 98
[2020-08-13 13:16] VITALS: BP 132/68; PULSE 74; RESP 15; O2SAT 98
== END 2020-08-13 13:40 | disposition home or self-care (01) ==
PROVIDERS: Emergency Provider Student in an Organized Health Care Education/Training Program
DX: R10.9 Unspecified abdominal pain (principal); R11.0 Nausea; N28.1 Cyst of kidney, acquired; D35.00 Benign neoplasm of unspecified adrenal gland; K57.30 Diverticulosis of large intestine without perforation or abscess without bleeding; E78.5 Hyperlipidemia, unspecified; E66.9 Obesity, unspecified; F17.200 Nicotine dependence, unspecified, uncomplicated; I25.10 Atherosclerotic heart disease of native coronary artery without angina pectoris; K21.9 Gastro-esophageal reflux disease without esophagitis; I11.0 Hypertensive heart disease with heart failure; I50.9 Heart failure, unspecified; Z90.49 Acquired absence of other specified parts of digestive tract; Z91.040 Latex allergy status
CPT/HCPCS: 74176; 80053; 81001; 83690; 85025; 96361; 96374; 96375; 96376; 99284; J7030; A4216; J2405

== ENCOUNTER 2020-12-13 10:25 | Emergency (ER) | payer MEDICAID, SELFPAY ==
[2020-12-13 10:25] VITALS: BP 139/86; PULSE 139; RESP 18; TEMP 36.2; O2SAT 96; BMI 31.3
--- NOTE | 2020-12-13 11:02 | EDS_ITS ---
HPI History of Present Illness Chief Complaint: Headache Informant: patient Onset/Context/Timing Onset: Yesterday Context: Gradual (w/ gradual worsening) Timing: Continuous Quality -Headache: Positive for Similar Prior Headaches and Throbbing Current Severity: Severe Maximum Severity: Severe Worsened by: light Relieved by: nothing Associated Symptoms/Injury Associated Symptoms: Positive for Nausea, Vomiting, Blurred Vision and Photophobia; Negative for Numbness and Tingling Injury - PLASCENCIA: Negative for Direct Trauma and Fall Narrative Narrative: Patient with history of migraines but she has not had one in a while. This 1 started yesterday morning and has progressively gotten worse and now feels severe. She has no fevers, chills, neck stiffness, mental status changes, peripheral neurologic symptoms. No recent injury. She has had laryngitis and tonsillitis recently, she states they tested her for strep and it was negative but she was put on Augmentin anyway. It has gotten a little better but she still has it. [facility] Medical History (Updated 12/13/20 @ 12:[address] Terry Oden MD) CAD (coronary artery disease), [place] coronary artery CHF (congestive heart failure) Diabetes mellitus, type 2 GERD (gastroesophageal reflux disease) HTN (hypertension) Hyperlipidemia Home Medications insulin glargine [Lantus SoloStar Pen] 40 units SUBCUT DAILY 11/04/13 [History Last Taken 10/21/18] lisinopril 10 mg PO DAILY 01/25/16 [History Last Taken 10/20/18] acetaminophen 650 mg PO Q6H PRN PRN 10/16/18 [History Last Taken 10/20/18] aspirin 81 mg PO DAILY 10/16/18 [History Last Taken 10/20/18] atorvastatin 80 mg PO QHS 10/16/18 [History Last Taken 10/20/18] insulin lispro [Humalog KwikPen] See Protocol SQ TID 10/16/18 [History Last Taken 10/21/18] metoprolol succinate 25 mg PO QHS 10/16/18 [History Last Taken 10/20/18] nitroglycerin [Nitrostat] 0.4 mg SUBLINGUAL Q5M PRN 10/16/18 [History Last Taken Unknown] omeprazole 20 mg PO QHS 10/21/18 [History Last Taken 10/20/18] ranolazine 500 mg PO BID 10/21/18 [History Last Taken 10/21/18] Allergy/AdvReac Type Severity Reaction Status Date / Time latex Allergy Hives Verified 12/13/20 10:27 Social History Smoking Status: Current every day smoker tobacco type: cigarettes ROS ROS ED Constitutional Constitutional ED: Denies chills or fever(s) Eyes Eyes: Reports blurry vision; Denies diplopia ENT ENT ED: Reports hoarseness and sore throat; Denies ear pain Cardiovascular Cardiovascular: Denies chest pain or palpitations Respiratory/Chest Respiratory/Chest: Denies cough or dyspnea Gastrointestinal Gastrointestinal: Reports nausea and vomiting; Denies abdominal pain or diarrhea Genitourinary Genitourinary ED: Denies dysuria or urinary frequency Musculoskeletal Musculoskeletal: Denies back pain or myalgias Integumentary Denies abscess or rash Neurologic Neurologic: Reports headache(s); Denies paresthesias or weakness EXAM Physical Exam Const Vital Signs: 12/13/20 10:25 Temperature 97.1 F L Temperature Source Temporal Pulse Rate 139 H Respiratory Rate 18 Blood Pressure 139/86 H Blood Pressure Mean 103 Pulse Ox 96 Oxygen Delivery Method Room Air HEENT Reports normocephalic and moist mucous membranes atraumatic Eyes PERRL, EOMs intact bilaterally and conjunctivae normal Eyes Narrative: photophobia Neck no lymphadenopathy, supple and no meningeal signs Resp normal respiratory effort and clear to auscultation bilaterally GI non-tender and non-distended Palpation: soft Extremity normal to inspection and full ROM Neuro oriented x3 and CN's II-XII intact bilaterally Sensorium / Orientation: awake and alert Speech: speech normal Gait (Neuro): normal gait Motor Exam: strength 5/5 throughout Psych mental status grossly normal Skin Lesions: no lesions Rashes: no rashes MDM MDM MDM Narrative Medical decision making narrative: Patient was treated with IV fluids, Benadryl, Toradol, Reglan she feels much better and is ready to go home. Consistent with migraine, discussed follow-up. Discharge Plan Triage Chief Complaint: Headache ED Provider: Terry Oden Dx/Rx/DC Orders Clinical Impression: Migraine headache Instructions: ED, Migraine (Classical) Prescriptions: No Action insulin glargine [Lantus Solostar U-100 Insulin] 100 UNITS/ML Pen 40 units subcut DAILY RF: 0 lisinopril 10 MG tablet 10 mg PO DAILY RF: 0 atorvastatin 80 MG tablet 80 mg PO QHS RF: 0 acetaminophen 325 MG tablet 650 mg PO Q6H PRN PRN (Reason: PAIN/FEVER) RF: 0 aspirin 81 MG tablet 81 mg PO DAILY RF: 0 nitroglycerin [Nitrostat] 0.4 MG Tab.Subl 0.4 mg sublingual Q5M PRN (Reason: CHEST PAIN) RF: 0 metoprolol succinate 25 MG Tab.Er.24h 25 mg PO QHS RF: 0 insulin lispro [Humalog KwikPen Insulin] 100 UNIT/ML Insuln.Pen See Protocol unit SQ TID RF: 0 omeprazole 20 Capsule.Dr 20 mg PO QHS RF: 0 ranolazine 500 MG tablet 500 mg PO BID RF: 0 Primary Care Provider: Ama Neff Referrals: Ama Neff [Primary Care Provider] - 3-5 Days if not improving Disposition Disposition: Home, Self Care
[2020-12-13] MEDS: proCHLORPERazine 10 MG/2 ML Vial IV (11:20)
[2020-12-13] MEDS: Ketorolac 15 MG/ML Vial IV (11:20)
[2020-12-13] MEDS: 0.9% Normal Saline 1,000 ML 999 ML IV (11:20)
[2020-12-13] MEDS: DiphenhydrAMINE 50 MG/ML Syringe 25 MG IV (11:20)
[2020-12-13 12:49] VITALS: BP 128/76; PULSE 101; RESP 16; TEMP 36.2; O2SAT 97
== END 2020-12-13 12:50 | disposition home or self-care (01) ==
PROVIDERS: Emergency Provider Emergency Medicine
DX: G43.909 Migraine, unspecified, not intractable, without status migrainosus (principal); E11.9 Type 2 diabetes mellitus without complications; E78.5 Hyperlipidemia, unspecified; I11.0 Hypertensive heart disease with heart failure; I25.10 Atherosclerotic heart disease of native coronary artery without angina pectoris; I50.9 Heart failure, unspecified; K21.9 Gastro-esophageal reflux disease without esophagitis; Z79.4 Long term (current) use of insulin; Z79.82 Long term (current) use of aspirin; Z79.899 Other long term (current) drug therapy; F17.210 Nicotine dependence, cigarettes, uncomplicated
CPT/HCPCS: 96374; 96375; 99283; J7030; A4216

== ENCOUNTER 2020-12-30 13:12 | Emergency (ER) | payer MEDICAID, SELFPAY ==
[2020-12-30 13:13] VITALS: BP 150/107; PULSE 124; RESP 20; TEMP 36.5; O2SAT 98; BMI 25.9
--- NOTE | 2020-12-30 13:40 | EKG12_ITS ---
Test Reason : CHEST PAIN Blood Pressure : / mmHG Vent. Rate : 118 BPM Atrial Rate : 118 BPM P-R Int : 154 ms QRS Dur : 098 ms QT Int : 334 ms P-R-T Axes : 067 -49 086 degrees QTc Int : 468 ms Poor data quality, interpretation may be adversely affected Sinus tachycardia Left axis deviation Minimal voltage criteria for LVH, may be normal variant Septal infarct , age undetermined Abnormal ECG Confirmed by KIERSTEN HERNANDEZ, RICHY ([id number]), publication editor FELICIA HOLCOMB ([id number]) on 01/03/2021 9:12:05 AM Referred By: GARCIA Confirmed By:SARAH BURCH MD
--- NOTE | 2020-12-30 13:40 | RAD_ITS ---
HISTORY: chest pain, nausea EXAMINATION/TECHNIQUE: XR Chest 1 View: Portable upright AP chest x-ray COMPARISON: 10/21/18 FINDINGS: LINES/DEVICES: None. LUNGS: No consolidation, edema or effusion. No pneumothorax. MEDIASTINUM AND CARDIOVASCULAR STRUCTURES: Cardiac silhouette not enlarged. Central airways and mediastinal contour are unremarkable. BONES AND SOFT TISSUES: No acute bony abnormalities. RAD/Chest 1 View (Portable) IMPRESSION: No radiographic evidence of acute cardiopulmonary disease. at 1533 Reported and signed by: Rhett Blackwood MD Electronically Signed: Rhett Blackwood MD at 15:32 EDT Tel , Service support ,
[2020-12-30 13:50] LABS: Absolute Lymphocyte Count 2.18 X10^3/uL (0.83-4.51); Absolute Neutrophil Count 11.9 X10^3/uL (2.0-7.7); Basophil# 0.07 X10^3/uL; Basophil% 0.5 % (0-1); Eosinophil# 0.11 X10^3/uL; Eosinophils% 0.7 % (0-5); Hematocrit 49.3 % (37-47); Hemoglobin 16.4 g/dL (12.0-15.0); Lymphocyte # 2.18 X10^3/ul (0.83-4.51); Lymphocyte % 14.3 % (19-41); Mean Corp Hgb Conc 33.3 g/dL (32-36); Mean Corpuscular Hgb 27.8 pg (27.0-32.0); Mean Corpuscular Volume 83.7 fL (81-99); Mean Platelet Vol. 9.3 fl (6.2-12.0); Monocyte# 0.84 X10^3/uL; Monocyte% 5.5 % (0-10); NRBC Flagged by Analyzer 0 % (0-5); Neutrophil # 11.94 X10^3/uL (2.7-7.7); Neutrophil % 78.5 % (47-70); Platelet Count 281 K/mm3 (150-450); RBC Distribution Width CV 12.7 % (11.6-14.6); RBC Distribution Width SD 38.5 fl (35.1-43.9); Red Blood Count 5.89 M/mm3 (4.2-5.4); White Blood Count 15.2 K/mm3 (4.4-11.0)
[2020-12-30 14:08] LABS: Anion Gap 6 (5-15); BUN 8 mg/dL (7-18); BUN/Creat Ratio 11.5 RATIO (10-20); Chloride 98 mmol/L (98-107); Creatinine, Serum 0.69 mg/dL (0.55-1.02); EST Glomerular Filtration Rate 95 mL/min (>60); Est Glom Filt Rate - Afr Amer 115 mL/min (>60); Estimated Creatinine Clearance 92.33 ml/min; Glucose 281 mg/dL (74-106); Sodium Level 134 mmol/L (136-145); Troponin-I HS 9.9 pg/mL (3.0-53.7)
[2020-12-30 15:21] VITALS: BP 139/99; PULSE 111; RESP 16; O2SAT 97
--- NOTE | 2020-12-30 16:10 | EDS_ITS ---
HPI History of Present Illness Chief Complaint: Chest Pain Informant: patient Narrative Narrative: Patient is a 50-year-old female with history of diabetes mellitus, GERD, hyperlipidemia and hypertension presenting chest pain, shortness of breath and nausea vomiting/abdominal pain. Patient states she had her second Covid vaccine yesterday. Patient states her symptoms started this morning and were intermittent however they progressed over the past few hours and been constant. She states has been vomiting multiple times denies any blood in her vomit. She states her bowel movements been loose but denies any melena or hematochezia. No urinary symptoms. No fever but has hot flashes/chills. No associated cough. Patient notes he does have a history of DVT/PE after she was discharged to a shelter but is not currently on any anticoagulation. She states she has a history of coronary artery disease and her heart is functioning at 30%. I presume this means she has an EF of 30%. Patient is not take any medications for her symptoms. She describes the pain is in the center of her chest and over the left. It does not radiate. [facility] Medical History (Updated 12/30/20 @ 20:[address] Martina Martínez, DO) CAD (coronary artery disease), [place] coronary artery CHF (congestive heart failure) Diabetes mellitus, type 2 GERD (gastroesophageal reflux disease) HTN (hypertension) Hyperlipidemia Home Medications insulin glargine [Lantus SoloStar Pen] 40 units SUBCUT DAILY 11/04/13 [History Last Taken 10/21/18] lisinopril 10 mg PO DAILY 01/25/16 [History Last Taken 10/20/18] acetaminophen 650 mg PO Q6H PRN PRN 10/16/18 [History Last Taken 10/20/18] aspirin 81 mg PO DAILY 10/16/18 [History Last Taken 10/20/18] atorvastatin 80 mg PO QHS 10/16/18 [History Last Taken 10/20/18] insulin lispro [Humalog KwikPen] See Protocol SQ TID 10/16/18 [History Last Taken 10/21/18] metoprolol succinate 25 mg PO QHS 10/16/18 [History Last Taken 10/20/18] nitroglycerin [Nitrostat] 0.4 mg SUBLINGUAL Q5M PRN 10/16/18 [History Last Taken Unknown] omeprazole 20 mg PO QHS 10/21/18 [History Last Taken 10/20/18] ranolazine 500 mg PO BID 10/21/18 [History Last Taken 10/21/18] amoxicillin-pot clavulanate [Augmentin] 1 tab PO BID #14 tab 12/30/20 [Rx Last Taken Unknown] hydrocodone-acetaminophen 1 tab PO Q6H PRN 3 Days #12 tab 12/30/20 [Rx Last Taken Unknown] ondansetron 4 mg PO Q8H PRN #14 tab 12/30/20 [Rx Last Taken Unknown] Allergy/AdvReac Type Severity Reaction Status Date / Time latex Allergy Hives Verified 12/30/20 13:12 Social History Smoking Status: Current every day smoker tobacco type: cigarettes ROS ROS ED Constitutional Constitutional ED: Reports chills; Denies fever(s) Eyes Eyes: Denies blurry vision or change in vision ENT ENT ED: Denies rhinorrhea or sore throat Cardiovascular Cardiovascular: Reports chest pain Respiratory/Chest Respiratory/Chest: Denies cough or dyspnea Gastrointestinal Gastrointestinal: Reports abdominal pain, diarrhea, nausea and vomiting Genitourinary Genitourinary ED: Denies dysuria or hematuria Musculoskeletal Musculoskeletal: Denies arthralgias or myalgias Integumentary Denies rash Neurologic Neurologic: Denies headache(s) or weakness EXAM Physical Exam Const Vital Signs: 12/30/20 13:13 12/30/20 15:13 12/30/20 15:14 Temperature 97.7 F L Temperature Source Temporal Pulse Rate 124 H Respiratory Rate 20 H Respiratory Pattern Normal Blood Pressure 150/107 H Blood Pressure Mean 121 Pulse Ox 98 Oxygen Delivery Method Room Air Room Air 12/30/20 15:21 12/30/20 16:18 12/30/20 17:05 Temperature Temperature Source Pulse Rate 111 H 106 H 97 Respiratory Rate 16 15 18 Respiratory Pattern Blood Pressure 139/99 H 151/98 H 133/83 H Blood Pressure Mean 112 115 99 Pulse Ox 97 98 94 Oxygen Delivery Method Room Air Room Air Room Air 12/30/20 18:50 Temperature Temperature Source Pulse Rate 95 Respiratory Rate 16 Respiratory Pattern Blood Pressure Blood Pressure Mean Pulse Ox 96 Oxygen Delivery Method Room Air Positive well nourished and well developed General Appearance ED: well developed HEENT Reports TM's clear and moist mucous membranes Tympanic Membrane ED: Yes TM's clear Eyes PERRL and EOMs intact bilaterally Neck no lymphadenopathy and supple Neck Narrative: No meningeal signs Chest Wall inspection of chest normal Resp normal respiratory effort and clear to auscultation bilaterally Cardio regular rate, regular rhythm and no murmurs GI non-distended Auscultation: normoactive bowel sounds Palpation: soft and tender other (Diffuse tenderness to palpation) Back/Spine no CVA tenderness Extremity normal to inspection General Extremety ED: Negative for edema General Extremity: Negative for edema Neuro oriented x3 and no sensory deficits noted Sensorium / Orientation: alert Motor Exam: Negative for general weakness Psych mental status grossly normal Skin no rashes or lesions noted MDM MDM MDM Narrative Medical decision making narrative: Patient is evaluated for chest pain, nausea, vomiting and loose bowel movements. She is also having chills. She has a history of coronary artery disease as well as GERD. Patient did recently have her second Covid vaccine. On exam patient appears uncomfortable and her symptoms seem to be more secondary to a GI source then cardiac. Given her history did obtain EKG, chest x-ray, belly labs and delta troponin. D-dimer is negative. Have a low suspicion for PE. EKG does not show any acute ischemic changes. Troponin is normal. Patient does have a leukocytosis and CT shows pancolitis, worse on the right versus artifact from under distention. Given patient's leukocytosis and diffuse abdominal pain I would err on the side of treating this is a colitis. Patient states that she cannot stay. That she has to go home and take care of her . Patient is counseled that she has signs of colitis throughout her entire abdomen however patient does not want to be admitted. Patient be started on Augmentin. She is given a prescription for Platter for pain control. She is also given a prescription for Zofran. She is counseled on return precautions. She verbalizes good understanding this plan. Patient continues to have abdominal pain however it does have improvement while in the emergency room. Patient discharged home in stable condition. Lab Data Attestation: I reviewed the patient's lab results. Labs: Laboratory Results - last 24 hr 12/30/20 12/30/20 12/30/20 13:41 13:41 13:41 WBC 15.2 H RBC 5.89 H Hgb 16.4 H Hct 49.3 H MCV 83.7 MCH 27.8 MCHC 33.3 RDW Std Deviation 38.5 RDW Coeff of [place] 12.7 Plt Count 281 MPV 9.3 Immature Gran % (Auto) 0.500 Neut % (Auto) 78.5 H Lymph % (Auto) 14.3 L [place] % (Auto) 5.5 Eos % (Auto) 0.7 Baso % (Auto) 0.5 Absolute Neuts (auto) 11.9 H Absolute Lymphs (auto) 2.18 Nucleated RBC % 0 D-Dimer Quant (PE/DVT) Sodium 134 L Potassium 4.0 Chloride 98 Carbon Dioxide 30.0 Anion Gap 6 BUN 8 Creatinine 0.69 Estim Creat Clear Calc 92.33 Est GFR (MDRD) Af Amer 115 Est GFR (MDRD) Non-Af 95 BUN/Creatinine Ratio 11.5 Glucose 281 H Calcium 9.0 Total Bilirubin 1.50 H Direct Bilirubin 0.29 AST 18 ALT 22 Alkaline Phosphatase 124 H Troponin I High Sens 9.9 Total Protein 7.6 Albumin 3.5 Globulin 4.1 Lipase Urine Color Urine Clarity Urine pH Ur Specific [place] Urine Protein Urine Glucose (UA) Urine Ketones Urine Occult Blood Urine Nitrite Urine Bilirubin Urine Urobilinogen Ur Leukocyte Esterase Urine RBC Urine WBC Ur Squamous Epith Cells Urine Bacteria Hyaline Casts Urine Mucus 12/30/20 12/30/20 12/30/20 13:41 16:45 18:40 WBC RBC Hgb Hct MCV MCH MCHC RDW Std Deviation RDW Coeff of [place] Plt Count MPV Immature Gran % (Auto) Neut % (Auto) Lymph % (Auto) [place] % (Auto) Eos % (Auto) Baso % (Auto) Absolute Neuts (auto) Absolute Lymphs (auto) Nucleated RBC % D-Dimer Quant (PE/DVT) 0.35 Sodium Potassium Chloride Carbon Dioxide Anion Gap BUN Creatinine Estim Creat Clear Calc Est GFR (MDRD) Af Amer Est GFR (MDRD) Non-Af BUN/Creatinine Ratio Glucose Calcium Total Bilirubin Direct Bilirubin AST ALT Alkaline Phosphatase Troponin I High Sens Total Protein Albumin Globulin Lipase 94 Urine Color Yellow Urine Clarity Sl. Cloudy Urine pH 7.0 Ur Specific [place] 1.010 Urine Protein 30 H Urine Glucose (UA) 1000 H Urine Ketones Negative Urine Occult Blood Negative Urine Nitrite Negative Urine Bilirubin Negative Urine Urobilinogen Normal Ur Leukocyte Esterase 25 H Urine RBC 0-5 SEEN Urine WBC 0-5 SEEN Ur Squamous Epith Cells 0-5 SEEN Urine Bacteria 0 SEEN Hyaline Casts 0-5 SEEN Urine Mucus 0 SEEN Radiography Chest X-Ray - ED: 1 View, Read by ED Physician, Read by Radiologist and No Acute Disease Diagnostic Testing: Radiology Impression Chest X-Ray 12/30/20 13:40 IMPRESSION: No radiographic evidence of acute cardiopulmonary disease. at 1533 Reported and signed by: Rhett Blackwood MD Electronically Signed: Rhett Blackwood MD at 15:32 EDT Tel , Service support , Abdomen/Pelvis CT 12/30/20 18:34 IMPRESSION: Diffuse colitis versus artifact of under distention. Findings most severe throughout the right colon. Individualized dose optimization techniques were used for this CT. at 1940 Reported and signed by: Rhett Blackwood MD Electronically Signed: Rhett Blackwood MD at 19:39 EDT Tel , Service support , Rhythm Strip Rhythm Strip: Sinus Tach Rate: 118 Ectopy: None EKG Initial EKG: Attestation: I personally reviewed and interpreted this EKG as follows: Interpretation: Sinus Tachycardia Comments: Sinus tachycardia at a rate of 118 Left axis deviation Minimal voltage criteria for LVH Normal ST segments T wave inversions in 1 and aVL Discharge Plan Triage Chief Complaint: Chest Pain ED Provider: Martina Martínez Dx/Rx/DC Orders Clinical Impression: Vomiting and diarrhea, Colitis, Leukocytosis, Chest pain Instructions: ED Understanding Colitis, ED Chest Pain, Uncertain Cause Prescriptions: New hydrocodone-acetaminophen 5-325 mg tablet 1 tab PO Q6H PRN (Reason: pain) 3 Days Qty: 12 RF: 0 ondansetron 4 mg tablet,disintegrating 4 mg PO Q8H PRN (Reason: nausea and vomiting) Qty: 14 RF: 0 amoxicillin-pot clavulanate [Augmentin] 875-125 mg tablet 1 tab PO BID Qty: 14 RF: 0 No Action insulin glargine [Lantus Solostar U-100 Insulin] 100 UNITS/ML insulin pen 40 units subcut DAILY RF: 0 lisinopril 10 MG tablet 10 mg PO DAILY RF: 0 atorvastatin 80 MG tablet 80 mg PO QHS RF: 0 acetaminophen 325 MG tablet 650 mg PO Q6H PRN PRN (Reason: PAIN/FEVER) RF: 0 aspirin 81 MG tablet 81 mg PO DAILY RF: 0 nitroglycerin [Nitrostat] 0.4 MG tablet, sublingual 0.4 mg sublingual Q5M PRN (Reason: CHEST PAIN) RF: 0 metoprolol succinate 25 MG tablet extended release 24 hr 25 mg PO QHS RF: 0 insulin lispro [Humalog KwikPen Insulin] 100 UNIT/ML insulin pen See Protocol unit SQ TID RF: 0 omeprazole 20 capsule,delayed release(DR/EC) 20 mg PO QHS RF: 0 ranolazine 500 MG tablet 500 mg PO BID RF: 0 Primary Care Provider: Ama Neff Referrals: Carola Flood MD [STAFF PHYSICIAN] - Ama Neff [Primary Care Provider] - Activity Restrictions/Additional Instructions: Your CT shows a lot of inflammation in your colon. I suspect this with your vomiting is what is causing majority your symptoms. Your heart looks normal today. You do not have any signs of a blood clot. Please return the emergency room if you continue to have any worsening pain, develop fever or not feeling better. Disposition Disposition: Home, Self Care
[2020-12-30] MEDS: Ondansetron 4 MG/2 ML Vial IV (16:17)
[2020-12-30] MEDS: Morphine 4 MG/ML Syringe IV ×2 (16:17→18:47)
[2020-12-30 16:18] VITALS: BP 151/98; PULSE 106; RESP 15; O2SAT 98
[2020-12-30] MEDS: 0.9% Normal Saline 1,000 ML 999 ML IV (16:18)
[2020-12-30] MEDS: Famotidine 200 MG/20 ML MDV 20 MG in 0.9% Normal Saline (Pres. free 8 ML 300 MG IV (16:39)
[2020-12-30 16:51] LABS: Lipase 94 U/L (73-393)
[2020-12-30 16:54] LABS: AST(SGOT) 18 U/L (15-37); Alanine Aminotransfer ALT/SGPT 22 U/L (13-56); Albumin, Serum 3.5 g/dL (3.2-5.0); Alkaline Phosphatase 124 U/L (45-117); Bilirubin, Direct 0.29 mg/dL (0.00-0.30); Globulin 4.1 g/dL (2.2-4.2); Protein, Total 7.6 g/dL (6.4-8.2)
[2020-12-30 17:02] LABS: D-Dimer Quantitative (DVT/PE) 0.35 FEU/ug/m (0.27-0.49)
[2020-12-30 17:05] VITALS: BP 133/83; PULSE 97; RESP 18; O2SAT 94
--- NOTE | 2020-12-30 18:34 | CT_ITS ---
HISTORY: epigastric abd pain EXAMINATION: CT Abdomen And Pelvis W/ Contrast Injection TECHNIQUE: Helically acquired images were obtained of the abdomen and pelvis following IV contrast. A radiation dose optimization technique was used for this scan. IV Contrast dosage and agent: 100mL [id number]-370 Oral contrast: None. COMPARISON: 08/13/20, 02/02/17, 01/09/15 FINDINGS: LOWER CHEST: Lung bases are clear. No cardiomegaly or pericardial effusion. LIVER: Stable 17 mm low-attenuation lesion right lobe liver. No concerning focal mass. GALLBLADDER AND BILIARY TREE: Cholecystectomy. No intra- or extrahepatic biliary ductal dilation. PANCREAS: No focal cystic or solid mass. SPLEEN: Normal size without focal cystic or solid mass. ADRENAL GLANDS: Stable bilateral nodules. KIDNEYS AND URETERS: Normal renal size and position. No hydronephrosis. PERITONEUM: No ascites or free air. BOWEL: Prior appendectomy changes. No stomach or bowel distension. Diffuse underdistention of the colon with appearance of wall thickening from the cecum through the transverse colon, less prominent through the descending and rectosigmoid colon with mild adjacent inflammatory stranding. LYMPH NODES: No enlarged mesenteric or retroperitoneal lymph nodes. VESSELS: Aorta is non-dilated. URINARY BLADDER: Unremarkable. REPRODUCTIVE ORGANS: No pelvic masses. ABDOMINAL WALL: No discrete abdominal or pelvic wall hernia. BONES: No acute or aggressive abnormality. CT/Abdomen/Pelvis W IV Cont ONLY IMPRESSION: Diffuse colitis versus artifact of under distention. Findings most severe throughout the right colon. Individualized dose optimization techniques were used for this CT. at 1940 Reported and signed by: Rhett Blackwood MD Electronically Signed: Rhett Blackwood MD at 19:39 EDT Tel , Service support ,
[2020-12-30 18:44] LABS: Bacteria 0 SEEN /hpf (None Seen); Mucous, Urine 0 SEEN /hpf (<or=2+)
[2020-12-30] MEDS: Metoclopramide 10 MG/2 ML Vial IV (18:47)
[2020-12-30 18:48] LABS: Color, Urine Yellow (Yellow); Glucose, Dipstick 1000 mg/dl (Normal); Ketone-Dipstick Negative (Negative); Leukocyte Esterase-Dipstick 25 /ul (Negative); Nitrite-Dipstick Negative (Negative); Occult Blood-Urine Negative /ul (Negative); Protein-Dipstick 30 mg/dl (Negative); Urine Bilirubin Dipstick Negative (Negative); Urine Clarity Sl. Cloudy (Clear); Urine Urobilinogen Normal (Normal)
[2020-12-30 18:50] VITALS: PULSE 95; RESP 16; O2SAT 96
[2020-12-30 19:02] LABS: Squamous Epithelial Cells - UA 0-5 SEEN /hpf (5-10)
[2020-12-30 19:03] LABS: Hyaline Cast 0-5 SEEN /lpf (0-5)
[2020-12-30 19:04] LABS: Red Blood Cells-Urine 0-5 SEEN /hpf (0-5); White Blood Cells 0-5 SEEN /hpf (0-5)
[2020-12-30] MEDS: Amox/Clavulanate 875 MG Tablet PO (20:14)
[2020-12-30 20:22] VITALS: BP 150/62; PULSE 80; RESP 16; O2SAT 99
== END 2020-12-30 20:27 | disposition home or self-care (01) ==
PROVIDERS: Emergency Provider Emergency Medicine
DX: R07.9 Chest pain, unspecified (principal); K52.9 Noninfective gastroenteritis and colitis, unspecified; E11.9 Type 2 diabetes mellitus without complications; E78.5 Hyperlipidemia, unspecified; I11.0 Hypertensive heart disease with heart failure; I25.10 Atherosclerotic heart disease of native coronary artery without angina pectoris; I50.9 Heart failure, unspecified; K21.9 Gastro-esophageal reflux disease without esophagitis; F17.210 Nicotine dependence, cigarettes, uncomplicated; Z79.4 Long term (current) use of insulin; Z79.82 Long term (current) use of aspirin; Z86.718 Personal history of other venous thrombosis and embolism
CPT/HCPCS: 71045; 74177; 80048; 80076; 81001; 83690; 84484; 85025; 85379; 93005; 96365; 96375; 96376; 99285; J7030; Q9967; A4216; J2405; J3490

== ENCOUNTER 2021-01-08 10:21 | Emergency (ER) | payer MEDICAID, SELFPAY ==
[2021-01-08 10:22] VITALS: BP 143/83; PULSE 107; RESP 18; TEMP 36.2; O2SAT 100; BMI 25.8
--- NOTE | 2021-01-08 10:41 | EX.ED.UPPERE ---
HPI History of Present Illness Chief Complaint: Upper Extremity Injury Informant: patient Onset/Context/Timing Onset: Days Context: Onset with activity Location: Left shoulder Maximum Severity: Severe Worsened by: Use and movement Associated Symptoms Associated Symptoms: Negative for Parasthesia, Weakness and Loss of Funtion Narrative Prior similar symptoms: No Recent Illness/Hospitalization: No [facility] Medical History CAD (coronary artery disease), [place] coronary artery CHF (congestive heart failure) Diabetes mellitus, type 2 GERD (gastroesophageal reflux disease) HTN (hypertension) Hyperlipidemia Home Medications insulin glargine [Lantus SoloStar Pen] 40 units SUBCUT DAILY 11/04/13 [History Last Taken 10/21/18] lisinopril 10 mg PO DAILY 01/25/16 [History Last Taken 10/20/18] acetaminophen 650 mg PO Q6H PRN PRN 10/16/18 [History Last Taken 10/20/18] aspirin 81 mg PO DAILY 10/16/18 [History Last Taken 10/20/18] atorvastatin 80 mg PO QHS 10/16/18 [History Last Taken 10/20/18] insulin lispro [Humalog KwikPen] See Protocol SQ TID 10/16/18 [History Last Taken 10/21/18] metoprolol succinate 25 mg PO QHS 10/16/18 [History Last Taken 10/20/18] nitroglycerin [Nitrostat] 0.4 mg SUBLINGUAL Q5M PRN 10/16/18 [History Last Taken Unknown] omeprazole 20 mg PO QHS 10/21/18 [History Last Taken 10/20/18] ranolazine 500 mg PO BID 10/21/18 [History Last Taken 10/21/18] amoxicillin-pot clavulanate [Augmentin] 1 tab PO BID #14 tab 12/30/20 [Rx Last Taken Unknown] hydrocodone-acetaminophen 1 tab PO Q6H PRN 3 Days #12 tab 12/30/20 [Rx Last Taken Unknown] ondansetron 4 mg PO Q8H PRN #14 tab 12/30/20 [Rx Last Taken Unknown] hydrocodone-acetaminophen 1 tab PO Q6H PRN PRN 3 Days #10 tablet 01/08/21 [Rx Last Taken Unknown] Allergy/AdvReac Type Severity Reaction Status Date / Time latex Allergy Hives Verified 01/08/21 10:22 Social History Smoking Status: Current every day smoker tobacco type: cigarettes ROS ROS ED Constitutional Constitutional ED: Denies frequent falls Eyes Eyes: Denies change in vision ENT ENT ED: Denies ear pain Cardiovascular Cardiovascular: Denies chest pain or palpitations Respiratory/Chest Respiratory/Chest: Denies cough, dyspnea or sputum Gastrointestinal Gastrointestinal: Denies nausea or vomiting Genitourinary Genitourinary ED: Denies dysuria Musculoskeletal Musculoskeletal: Reports myalgias; Denies back pain or neck pain Integumentary Denies abscess, Abrasions or rash Neurologic Neurologic: Denies headache(s), paresthesias or weakness Psychiatric Psychiatric: Denies depression Endocrine Endocrinology: Denies polyuria Hematologic/Lymphatic Hematologic/Lymphatic: Denies easy bruising Allergic/Immunologic Allergic/Immunologic ED: Denies urticaria EXAM Physical Exam Const Vital Signs: 01/08/21 10:22 Temperature 97.2 F L Temperature Source Oral Pulse Rate 107 H Respiratory Rate 18 Blood Pressure 143/83 H Blood Pressure Mean 103 Pulse Ox 100 Oxygen Delivery Method Room Air Positive well nourished and well developed General Appearance ED: well developed HEENT normocephalic and atraumatic Eyes EOMs intact bilaterally Neck supple Chest Wall inspection of chest normal Resp normal respiratory effort Cardio regular rate Back/Spine no CVA tenderness Cervical Spine: Negative for cervical spine tenderness Thoracic Spine / Upper Back: Negative for thoracic spinal tenderness Extremity Extremity Narrative: Diffuse tenderness over the left shoulder girdle. No focal tenderness. Pain with abduction of the left shoulder. No deformities. Neuro oriented x3 Sensorium / Orientation: alert Sensory Exam: No sensory level loss detected Motor Exam: strength 5/5 throughout Psych Mood & Affect: tearful Skin Lesions: no lesions Rashes: no rashes MDM MDM MDM Narrative Medical decision making narrative: X-rays were interpreted by me. No obvious fracture deformity. There is a possible proximal humerus cortical disruption. She is not really having pain at that area. I suspect a myofascial etiology. She was treated with pain medicine and a sling. Referred to orthopedics for follow-up. Discharge Plan Triage Chief Complaint: Upper Extremity Injury ED Provider: Jesse Mauro Dx/Rx/DC Orders Clinical Impression: Acute pain of left shoulder Prescriptions: New hydrocodone-acetaminophen 5-325 mg tablet 1 tab PO Q6H PRN PRN (Reason: Pain) 3 Days Qty: 10 RF: 0 No Action Lantus Solostar U-100 Insulin 100 UNITS/ML insulin pen 40 units subcut DAILY RF: 0 lisinopril 10 MG tablet 10 mg PO DAILY RF: 0 atorvastatin 80 MG tablet 80 mg PO QHS RF: 0 acetaminophen 325 MG tablet 650 mg PO Q6H PRN PRN (Reason: PAIN/FEVER) RF: 0 aspirin 81 MG tablet 81 mg PO DAILY RF: 0 nitroglycerin [Nitrostat] 0.4 MG tablet, sublingual 0.4 mg sublingual Q5M PRN (Reason: CHEST PAIN) RF: 0 metoprolol succinate 25 MG tablet extended release 24 hr 25 mg PO QHS RF: 0 insulin lispro [Humalog KwikPen Insulin] 100 UNIT/ML insulin pen See Protocol unit SQ TID RF: 0 omeprazole 20 capsule,delayed release(DR/EC) 20 mg PO QHS RF: 0 ranolazine 500 MG tablet 500 mg PO BID RF: 0 hydrocodone-acetaminophen 5-325 mg tablet 1 tab PO Q6H PRN (Reason: pain) 3 Days Qty: 12 RF: 0 ondansetron 4 mg tablet,disintegrating 4 mg PO Q8H PRN (Reason: nausea and vomiting) Qty: 14 RF: 0 amoxicillin-pot clavulanate [Augmentin] 875-125 mg tablet 1 tab PO BID Qty: 14 RF: 0 Primary Care Provider: Ama Neff Referrals: Sha Hankins MD [STAFF PHYSICIAN] - Disposition Disposition: Home, Self Care
[2021-01-08] MEDS: HYDROcodone Bitartrate/Apap 5/325 Tablet PO (10:53)
--- NOTE | 2021-01-08 11:00 | RAD_ITS ---
STUDY: X-RAY - LEFT SHOULDER REASON FOR EXAM: Female, 50 years old. Pain TECHNIQUE: 3 view(s) of the shoulder. COMPARISON: 10/21/2018 chest x-ray FINDINGS: There is mild degenerative arthrosis of the glenohumeral articulation. There is degenerative arthrosis of the acromioclavicular joint without inferior osseous spur formation. Normal acromion. There is slight cortical irregularity of the left humeral head suggesting a focal cortical injury/fracture. The soft tissue structures are unremarkable. Normal visualized pulmonary apex. RAD/Shoulder min 2 Views IMPRESSION: Findings suspicious for small focal cortical fracture of the left proximal humerus, recommend correlation with any trauma. Electronically Signed: Quin Hernández MD at 11:26 EDT Tel , Service support ,
[2021-01-08 11:46] VITALS: PULSE 76; RESP 15; O2SAT 97
== END 2021-01-08 11:48 | disposition home or self-care (01) ==
PROVIDERS: Emergency Provider Emergency Medicine
DX: M25.512 Pain in left shoulder (principal); F17.210 Nicotine dependence, cigarettes, uncomplicated; I25.10 Atherosclerotic heart disease of native coronary artery without angina pectoris; E11.9 Type 2 diabetes mellitus without complications; K21.9 Gastro-esophageal reflux disease without esophagitis; E78.5 Hyperlipidemia, unspecified; I50.9 Heart failure, unspecified; I11.0 Hypertensive heart disease with heart failure; Z79.82 Long term (current) use of aspirin
CPT/HCPCS: 73030; 99283

== ENCOUNTER 2021-01-10 13:07 | Emergency (ER) | payer MEDICAID, SELFPAY ==
[2021-01-10 13:08] VITALS: BP 174/103; PULSE 126; RESP 18; TEMP 36.9; O2SAT 97
--- NOTE | 2021-01-10 15:14 | CT_ITS ---
STUDY: CT LEFT SHOULDER REASON FOR EXAM: Female, 50 years old. left shoulder pain, ? fracture RADIATION DOSAGE (If Supplied By Facility): CTDIvol = ( 25.09 ) mGy, DLP = ( 559.64 ) mGycm TECHNIQUE: The patient was scanned in a multi detector CT scanner. High resolution transaxial imaging was performed without the administration of intravenous contrast material. Sagittal and coronal images were reconstructed. Individualized dose optimization techniques were used for this CT. COMPARISON: Left shoulder x-ray dated January 18, 2021 FINDINGS: A small acute oblique, minimally displaced fracture is present through the far anterolateral and proximal aspect of the humeral head. Normal glenohumeral articulation. Normal glenoid rim, neck and visualized scapula. Normal coracoid process. Normal visualized lateral clavicle. Normal acromioclavicular articulation. There is a Type II morphology (curved), with a neutral orientation. Normal visualized muscles and soft tissue structures. CT/Extremity Upper without Contra IMPRESSION: 1. Small acute oblique fracture of the far anterior lateral aspect of the humeral head Electronically Signed: Fernandez Mcdaniel MD at 16:33 EDT , Service support ,
--- NOTE | 2021-01-10 15:22 | EX.ED.UPPERE ---
HPI History of Present Illness Chief Complaint: Upper Extremity Injury Informant: patient Narrative Narrative: Patient is a 50-year-old female with history of GERD, hypertension diabetes mellitus presenting with worsening left shoulder and arm pain. Patient says she was seen in the ER 2 days ago for the same pain. At that time she had an x-ray which showed a possible focal cortical fracture of the left proximal humerus and she was discharged with a splint and [place]. Patient states she cannot take NSAIDs because she is a diabetic. She has been taking the medication began having worsening pain. She started have numbness going down to her hand. She states she cannot sleep and she is nauseous now because the pain is so bad. Patient notes that 3 weeks ago she was attempting to catch an open door and she felt a pop in her shoulder. She notes the pains only been getting worse since then. She denies any other trauma. She has any new injury. States the pain radiates up her neck into her shoulder and down her entire arm. Is worse over her shoulder itself. She has limited range of motion of that arm. Any type of motion makes it worse. No other complaints at this time. [facility] Medical History CAD (coronary artery disease), [place] coronary artery CHF (congestive heart failure) Diabetes mellitus, type 2 GERD (gastroesophageal reflux disease) HTN (hypertension) Hyperlipidemia Home Medications insulin glargine [Lantus SoloStar Pen] 40 units SUBCUT DAILY 11/04/13 [History Last Taken 10/21/18] lisinopril 10 mg PO DAILY 01/25/16 [History Last Taken 10/20/18] acetaminophen 650 mg PO Q6H PRN PRN 10/16/18 [History Last Taken 10/20/18] aspirin 81 mg PO DAILY 10/16/18 [History Last Taken 10/20/18] atorvastatin 80 mg PO QHS 10/16/18 [History Last Taken 10/20/18] insulin lispro [Humalog KwikPen] See Protocol SQ TID 10/16/18 [History Last Taken 10/21/18] metoprolol succinate 25 mg PO QHS 10/16/18 [History Last Taken 10/20/18] nitroglycerin [Nitrostat] 0.4 mg SUBLINGUAL Q5M PRN 10/16/18 [History Last Taken Unknown] omeprazole 20 mg PO QHS 10/21/18 [History Last Taken 10/20/18] ranolazine 500 mg PO BID 10/21/18 [History Last Taken 10/21/18] amoxicillin-pot clavulanate [Augmentin] 1 tab PO BID #14 tab 12/30/20 [Rx Last Taken Unknown] hydrocodone-acetaminophen 1 tab PO Q6H PRN 3 Days #12 tab 12/30/20 [Rx Last Taken Unknown] ondansetron 4 mg PO Q8H PRN #14 tab 12/30/20 [Rx Last Taken Unknown] hydrocodone-acetaminophen 1 tab PO Q6H PRN PRN 3 Days #10 tablet 01/08/21 [Rx Last Taken Unknown] oxycodone-acetaminophen [Percocet] 1 tab PO Q6H PRN 3 Days #12 tab 01/10/21 [Rx Last Taken Unknown] Allergy/AdvReac Type Severity Reaction Status Date / Time latex Allergy Hives Verified 01/10/21 13:08 Social History Smoking Status: Current every day smoker tobacco type: cigarettes ROS ROS ED Constitutional Constitutional ED: Denies frequent falls Eyes Eyes: Denies change in vision ENT ENT ED: Denies ear pain or rhinorrhea Cardiovascular Cardiovascular: Denies chest pain or palpitations Respiratory/Chest Respiratory/Chest: Denies cough or dyspnea Gastrointestinal Gastrointestinal: Reports nausea; Denies abdominal pain or vomiting Musculoskeletal Musculoskeletal: Reports other Details: left should pain ; Denies myalgias Integumentary Denies rash Neurologic Neurologic: Reports paresthesias LUE; Denies headache(s) or weakness Psychiatric Psychiatric: Reports anxiety; Denies depression EXAM Physical Exam Const Vital Signs: 01/10/21 13:08 Temperature 98.5 F Temperature Source Temporal Pulse Rate 126 H Respiratory Rate 18 Blood Pressure 174/103 H Blood Pressure Mean 126 Pulse Ox 97 Oxygen Delivery Method Room Air Positive well nourished and well developed General Appearance ED: well developed HEENT normocephalic and atraumatic Eyes PERRL Neck full ROM and supple Neck Narrative: left paraspinal. No midline tenderenss General: tenderness Chest Wall inspection of chest normal and palpation of chest normal Resp normal respiratory effort and clear to auscultation bilaterally Cardio regular rate, regular rhythm and no murmurs Cardio Narrative: 2+ radial pulses GI non-tender Palpation: soft Back/Spine no CVA tenderness Back/Spine Narrative: Tenderness palpation of the left trapezius muscle Cervical Spine: Negative for cervical spine tenderness Thoracic Spine / Upper Back: Negative for thoracic spinal tenderness Lumbar Spine / Lower Back: Negative for lumbar spinal tenderness Extremity Left Upper Extremity: shoulder joint Shoulder Joint Exam - Left: inspection (Normal), palpation (Diffuse tenderness palpation, most pronounced over the humeral head) and ROM (Decreased secondary to pain, cannot put patient through passive range of motion because of pain intolerance) and hand and digits other (Normal range of motion and strength of the hands and fingers. Normal sensation in all dermatomes.) Neuro oriented x3 and no focal motor deficits Sensorium / Orientation: alert Motor Exam: strength 5/5 throughout Psych mental status grossly normal Mood & Affect: anxious and tearful Skin Lesions: no lesions Rashes: no rashes MDM MDM MDM Narrative Medical decision making narrative: Patient is presenting for severe left shoulder pain. She had injury about 3 weeks ago and was found to have a possible cortical irregularity/fracture 3 days ago when she was seen in the ER. States her pain has been worsening, the [place] is not helping and she is doing have numbness in her arm. She does not have any deformity on exam however she has significant tenderness from her neck down to her elbow also does make physical exam difficult. She does not have any findings concerning for septic joint. Patient is given IM morphine in the ER for pain control. I did obtain CT of the extremity which does show small acute oblique fracture of the far anterior lateral aspect of the humeral head. No signs of dislocation, subluxation or any other acute process. Patient will be given a short course of oxycodone for pain control. She is given a dose before leaving. She is counseled that she does have a fracture but she does need outpatient follow-up with orthopedics. While patient is complaining of numbness in her distal arm, she has a normal neurologic exam for me and does not have any paresthesias on my exam. Discharge Plan Triage Chief Complaint: Upper Extremity Injury ED Provider: Martina Martínez Dx/Rx/DC Orders Clinical Impression: Fracture of head of humerus Instructions: ED Fracture, Upper Extremity Prescriptions: New oxycodone-acetaminophen [Percocet] 5-325 mg tablet 1 tab PO Q6H PRN (Reason: pain) 3 Days Qty: 12 RF: 0 No Action Lantus Solostar U-100 Insulin 100 UNITS/ML insulin pen 40 units subcut DAILY RF: 0 lisinopril 10 MG tablet 10 mg PO DAILY RF: 0 atorvastatin 80 MG tablet 80 mg PO QHS RF: 0 acetaminophen 325 MG tablet 650 mg PO Q6H PRN PRN (Reason: PAIN/FEVER) RF: 0 aspirin 81 MG tablet 81 mg PO DAILY RF: 0 nitroglycerin [Nitrostat] 0.4 MG tablet, sublingual 0.4 mg sublingual Q5M PRN (Reason: CHEST PAIN) RF: 0 metoprolol succinate 25 MG tablet extended release 24 hr 25 mg PO QHS RF: 0 insulin lispro [Humalog KwikPen Insulin] 100 UNIT/ML insulin pen See Protocol unit SQ TID RF: 0 omeprazole 20 capsule,delayed release(DR/EC) 20 mg PO QHS RF: 0 ranolazine 500 MG tablet 500 mg PO BID RF: 0 hydrocodone-acetaminophen 5-325 mg tablet 1 tab PO Q6H PRN (Reason: pain) 3 Days Qty: 12 RF: 0 ondansetron 4 mg tablet,disintegrating 4 mg PO Q8H PRN (Reason: nausea and vomiting) Qty: 14 RF: 0 amoxicillin-pot clavulanate [Augmentin] 875-125 mg tablet 1 tab PO BID Qty: 14 RF: 0 hydrocodone-acetaminophen 5-325 mg tablet 1 tab PO Q6H PRN PRN (Reason: Pain) 3 Days Qty: 10 RF: 0 Primary Care Provider: Ama Neff Referrals: David Barry DO [NON-STAFF] - Michael Fitch DO [STAFF PHYSICIAN] - Ama Neff [Primary Care Provider] - Disposition Disposition: Home, Self Care Discharge Date/Time: 01/10/21 18:07
[2021-01-10] MEDS: morphine 8 MG/ML Syringe 6 MG IM (15:26)
[2021-01-10] MEDS: Ondansetron ODT 4 MG Tablet PO (15:34)
[2021-01-10] MEDS: oxyCODONE 5 MG Tablet PO (18:04)
[2021-01-10 18:06] VITALS: BP 147/65; PULSE 76; RESP 15; O2SAT 96
== END 2021-01-10 18:07 | disposition home or self-care (01) ==
PROVIDERS: Emergency Provider Emergency Medicine
DX: S42.292D Other displaced fracture of upper end of left humerus, subsequent encounter for fracture with routine healing (principal); X58.XXXD Exposure to other specified factors, subsequent encounter; E11.9 Type 2 diabetes mellitus without complications; E78.5 Hyperlipidemia, unspecified; I25.10 Atherosclerotic heart disease of native coronary artery without angina pectoris; I11.0 Hypertensive heart disease with heart failure; I50.9 Heart failure, unspecified; K21.9 Gastro-esophageal reflux disease without esophagitis; F17.210 Nicotine dependence, cigarettes, uncomplicated; Z79.4 Long term (current) use of insulin; Z79.82 Long term (current) use of aspirin
CPT/HCPCS: 73200; 96372; 99283

== ENCOUNTER 2021-01-15 12:22 | Emergency (ER) | payer MEDICAID, SELFPAY ==
[2021-01-13 13:22] VITALS: BMI 25.7
[2021-01-15 12:23] VITALS: BP 158/95; PULSE 147; RESP 16; TEMP 35.9; O2SAT 99; BMI 25.9
--- NOTE | 2021-01-15 12:28 | EKG12_ITS ---
Test Reason : PALPS Blood Pressure : / mmHG Vent. Rate : 147 BPM Atrial Rate : 147 BPM P-R Int : 128 ms QRS Dur : 102 ms QT Int : 276 ms P-R-T Axes : 039 -55 085 degrees QTc Int : 431 ms Sinus tachycardia with Premature atrial complexes Left axis deviation Septal infarct , age undetermined Abnormal ECG Confirmed by TIP HERNANDEZ, LORETA ([id number]), slot editor FELICIA HOLCOMB ([id number]) on 01/18/2021 9:42:40 AM Referred By: ED PHYSICIAN Confirmed By:LORETA WHELAN MD
[2021-01-15 12:33] VITALS: PULSE 144
--- NOTE | 2021-01-15 12:51 | RAD_ITS ---
STUDY: X-RAY - ACUTE ABDOMINAL SERIES REASON FOR EXAM: Female, 50 years old. Abdominal pain TECHNIQUE: Single view of the chest. Supine, and erect view(s) of the abdomen were obtained. COMPARISON: None. FINDINGS: EKG leads project over the chest. The lungs are clear and expanded. Normal size heart. Normal mediastinum and edmundo. Normal visualized pulmonary arteries. Normal visualized aortic arch and descending thoracic aorta. There is a non-specific bowel gas pattern. The soft tissue structures of the abdomen and pelvis are unremarkable. Cholecystectomy clips. There are diffuse degenerative changes of the visualized lumbar spine. RAD/Acute Abdomen Inc Chest IMPRESSION: Nonacute x-ray examination of the chest, abdomen, and pelvis. Electronically Signed: Dion Allen MD ([place]) at 14:09 EDT , Service support ,
--- NOTE | 2021-01-15 12:53 | EX.ED.DYSGE1 ---
HPI History of Present Illness Chief Complaint: Nausea/Vomiting Informant: patient Onset/Context/Timing Onset: Today Context: Gradual Onset Timing: Continuous Quality: Heaviness Location: Chest Worsened by: Nothing Relieved by: Nothing Narrative Narrative: Patient presents with abdominal pain and chest pain that began today. Patient states she woke up with this. Patient describes her chest pain as a heaviness like someone is sitting on her chest. Patient states nothing makes it better nothing makes it worse. Patient admits to some nausea and vomiting. Patient also admits to diffuse abdominal pain. Patient denies any hematemesis or coffee-ground emesis. Patient denies any diarrhea, melena, or hematochezia. Patient denies any shortness of breath or cough. Patient denies any fevers or chills. Patient does admit to a decreased appetite. [facility] Medical History CAD (coronary artery disease), [place] coronary artery CHF (congestive heart failure) Diabetes mellitus, type 2 GERD (gastroesophageal reflux disease) HTN (hypertension) Hyperlipidemia Toe amputee Home Medications insulin glargine [Lantus SoloStar Pen] 40 units SUBCUT DAILY 11/04/13 [History Last Taken 10/21/18] aspirin 81 mg PO DAILY 10/16/18 [History Last Taken 10/20/18] atorvastatin 80 mg PO QHS 10/16/18 [History Last Taken 10/20/18] insulin lispro [Humalog KwikPen] See Protocol SQ TID 10/16/18 [History Last Taken 10/21/18] nitroglycerin [Nitrostat] 0.4 mg SUBLINGUAL Q5M PRN 10/16/18 [History Last Taken Unknown] escitalopram oxalate 10 mg PO DAILY 01/15/21 [History Last Taken Unknown] promethazine 25 mg PO Q6H PRN PRN #10 tablet 01/15/21 [Rx Last Taken Unknown] Allergy/AdvReac Type Severity Reaction Status Date / Time latex Allergy Hives Verified 01/15/21 12:23 Surgical History History of cholecystectomy Social History household members: spouse and children housing: house Smoking Status: Current every day smoker tobacco type: cigarettes alcohol intake: never what type of physical activity do you participate in: none do you feel safe at home: Yes ROS ROS ED Constitutional Constitutional ED: Denies chills or fever(s) Eyes Eyes: Denies blurry vision or change in vision ENT ENT ED: Denies rhinorrhea or sore throat Cardiovascular Cardiovascular: Reports chest pain, palpitations and racing heartbeat Respiratory/Chest Respiratory/Chest: Denies cough or dyspnea Gastrointestinal Gastrointestinal: Reports abdominal pain, nausea and vomiting; Denies diarrhea or melena Genitourinary Genitourinary ED: Denies dysuria or hematuria Musculoskeletal Musculoskeletal: Denies back pain or neck pain Integumentary Denies abscess or rash Neurologic Neurologic: Denies headache(s) or weakness Allergic/Immunologic Allergic/Immunologic ED: Denies mouth swelling or urticaria EXAM Physical Exam Const Vital Signs: 01/15/21 12:23 01/15/21 12:33 Temperature 96.6 F L Temperature Source Temporal Pulse Rate 147 H 144 H Respiratory Rate 16 Blood Pressure 158/95 H Blood Pressure Mean 116 Pulse Ox 99 Positive well nourished and well developed General Appearance ED: well developed HEENT Reports moist mucous membranes Neck supple and no JVD Resp normal respiratory effort and clear to auscultation bilaterally Cardio regular rhythm and no murmurs Rate: tachycardic GI normal to inspection, nondistended, normoactive bowel sounds Palpation: soft and tender epigastric, LLQ, RLQ, LUQ, RUQ, periumbilical and suprapubic; Negative for guarding or rebound tenderness present Extremity normal to inspection General Extremety ED: Negative for edema or tenderness General Extremity: Negative for edema Neuro oriented x3, CN's II-XII intact bilaterally and no sensory deficits noted Sensorium / Orientation: alert Motor Exam: strength 5/5 throughout Psych mental status grossly normal Skin no rashes or lesions noted MDM MDM MDM Narrative Medical decision making narrative: Patient was given IV fluids, morphine, and Zofran initially. EKG was obtained. On my interpretation, there is a sinus tachycardia with a rate of 147. There is left axis deviation at -55. There are nonspecific ST-T wave changes. There are no acute changes noted. CBC shows mild leukocytosis of 13.1. Comprehensive metabolic profile was obtained and was within normal limits. Lipase was normal. High-sensitivity troponin was normal. Urinalysis does not show any evidence of urinary tract infection. Acute abdominal x-rays were obtained. There are 5 views. There is no acute process noted. There is no evidence of obstruction or free air. There is moderate amount of stool in the colon. There is no acute cardiopulmonary process. Radiologist also interpreted the x-rays and agrees. Patient was still somewhat tachycardic on reevaluation. Patient was given a repeat bolus of IV fluids. Patient's tachycardia had improved. Patient was still somewhat anxious on reevaluation. Patient was given a dose of Ativan. Patient was feeling better after this. Patient was given a prescription for Phenergan. Patient was instructed to start with a liquid diet and advance to a bland diet and then to a regular diet as she feels better. Patient was instructed to follow-up with her primary care physician in 3-5 days. Patient understood and was agreeable with the plan. All questions were answered. Lab Data Attestation: I reviewed the patient's lab results. Labs: Laboratory Results - last 24 hr 01/15/21 01/15/21 01/15/21 12:55 12:55 13:40 WBC 13.1 H RBC 5.79 H Hgb 16.0 H Hct 47.8 H MCV 82.6 MCH 27.6 MCHC 33.5 RDW Std Deviation 38.3 RDW Coeff of [place] 12.7 Plt Count 226 MPV 9.8 Immature Gran % (Auto) 0.300 Neut % (Auto) 83.3 H Lymph % (Auto) 11.1 L [place] % (Auto) 3.9 Eos % (Auto) 0.8 Baso % (Auto) 0.6 Absolute Neuts (auto) 10.9 H Absolute Lymphs (auto) 1.45 Nucleated RBC % 0 Sodium 133 L Potassium 4.0 Chloride 103 Carbon Dioxide 26.0 Anion Gap 4 L BUN 12 Creatinine 0.69 Estim Creat Clear Calc 92.33 Est GFR (MDRD) Af Amer 117 Est GFR (MDRD) Non-Af 96 BUN/Creatinine Ratio 17.5 Glucose 368 H Calcium 8.7 Total Bilirubin 0.60 AST 13 L ALT 18 Alkaline Phosphatase 106 Troponin I High Sens 12.8 Total Protein 7.1 Albumin 3.2 Globulin 3.9 Albumin/Globulin Ratio 0.8 L Lipase 136 Urine Color Yellow Urine Clarity Clear Urine pH 6.5 Ur Specific [place] 1.010 Urine Protein 30 H Urine Glucose (UA) 1000 H Urine Ketones Negative Urine Occult Blood Negative Urine Nitrite Negative Urine Bilirubin Negative Urine Urobilinogen Normal Ur Leukocyte Esterase 25 H Urine RBC 0 SEEN Urine WBC 0 SEEN Ur Squamous Epith Cells 0-5 SEEN Urine Bacteria 0 SEEN Urine Mucus 0 SEEN Radiography Diagnostic Testing: Radiology Impression Acute Abdomen Series 01/15/21 12:51 IMPRESSION: Nonacute x-ray examination of the chest, abdomen, and pelvis. Electronically Signed: Dion Allen MD ([place]) at 14:09 EDT , Service support , EKG Initial EKG: Attestation: I personally reviewed and interpreted this EKG as follows: Interpretation: Sinus Tachycardia (147) and Non-Specific ST Changes Prior EKG tracings: available for review Prior: Unchanged (12/30/2020) Discharge Plan Triage Chief Complaint: Nausea/Vomiting ED Provider: Riccardo Hillman Dx/Rx/DC Orders Clinical Impression: Abdominal pain in female Instructions: ED Abdominal Pain Unkn Cause Fem Prescriptions: New promethazine [promethazine] 25 MG tablet 25 mg PO Q6H PRN PRN (Reason: Nausea) Qty: 10 RF: 0 No Action Lantus Solostar U-100 Insulin 100 UNITS/ML insulin pen 40 units subcut DAILY RF: 0 atorvastatin 80 MG tablet 80 mg PO QHS RF: 0 aspirin 81 MG tablet 81 mg PO DAILY RF: 0 nitroglycerin [Nitrostat] 0.4 MG tablet, sublingual 0.4 mg sublingual Q5M PRN (Reason: CHEST PAIN) RF: 0 insulin lispro [Humalog KwikPen Insulin] 100 UNIT/ML insulin pen See Protocol unit SQ TID RF: 0 escitalopram oxalate 10 mg tablet 10 mg PO DAILY RF: 0 Primary Care Provider: Ama Neff Referrals: Ama Neff [Primary Care Provider] - 3-5 Days Disposition Disposition: Home, Self Care
[2021-01-15] MEDS: Morphine 4 MG/ML Syringe IV (13:00)
[2021-01-15] MEDS: Ondansetron 4 MG/2 ML Vial IV (13:00)
[2021-01-15] MEDS: 0.9% Normal Saline 1,000 ML 1000 ML IV (13:01)
[2021-01-15 13:02] LABS: Absolute Lymphocyte Count 1.45 X10^3/uL (0.83-4.51); Absolute Neutrophil Count 10.9 X10^3/uL (2.0-7.7); Basophil# 0.08 X10^3/uL; Basophil% 0.6 % (0-1); Eosinophil# 0.11 X10^3/uL; Eosinophils% 0.8 % (0-5); Hematocrit 47.8 % (37-47); Lymphocyte # 1.45 X10^3/ul (0.83-4.51); Lymphocyte % 11.1 % (19-41); Mean Corp Hgb Conc 33.5 g/dL (32-36); Mean Corpuscular Hgb 27.6 pg (27.0-32.0); Mean Corpuscular Volume 82.6 fL (81-99); Mean Platelet Vol. 9.8 fl (6.2-12.0); Monocyte# 0.51 X10^3/uL; Monocyte% 3.9 % (0-10); NRBC Flagged by Analyzer 0 % (0-5); Neutrophil # 10.88 X10^3/uL (2.7-7.7); Neutrophil % 83.3 % (47-70); Platelet Count 226 K/mm3 (150-450); RBC Distribution Width CV 12.7 % (11.6-14.6); RBC Distribution Width SD 38.3 fl (35.1-43.9); Red Blood Count 5.79 M/mm3 (4.2-5.4); White Blood Count 13.1 K/mm3 (4.4-11.0)
[2021-01-15 13:23] LABS: ALB/GLOB Ratio 0.8 RATIO (0.9-2.4); AST(SGOT) 13 U/L (15-37); Alanine Aminotransfer ALT/SGPT 18 U/L (13-56); Albumin, Serum 3.2 g/dL (3.2-5.0); Alkaline Phosphatase 106 U/L (45-117); Anion Gap 4 (5-15); BUN 12 mg/dL (7-18); BUN/Creat Ratio 17.5 RATIO (10-20); Calcium,Total 8.7 mg/dL (8.5-10.1); Chloride 103 mmol/L (98-107); Creatinine, Serum 0.69 mg/dL (0.55-1.02); EST Glomerular Filtration Rate 96 mL/min (>60); Est Glom Filt Rate - Afr Amer 117 mL/min (>60); Estimated Creatinine Clearance 92.33 ml/min; Globulin 3.9 g/dL (2.2-4.2); Glucose 368 mg/dL (74-106); Lipase 136 U/L (73-393); Protein, Total 7.1 g/dL (6.4-8.2); Sodium Level 133 mmol/L (136-145); Troponin-I HS 12.8 pg/mL (3.0-53.7)
[2021-01-15 13:48] LABS: Bacteria 0 SEEN /hpf (None Seen); Mucous, Urine 0 SEEN /hpf (<or=2+); Red Blood Cells-Urine 0 SEEN /hpf (0-5); White Blood Cells 0 SEEN /hpf (0-5)
[2021-01-15 13:49] LABS: Color, Urine Yellow (Yellow); Glucose, Dipstick 1000 mg/dl (Normal); Ketone-Dipstick Negative (Negative); Leukocyte Esterase-Dipstick 25 /ul (Negative); Nitrite-Dipstick Negative (Negative); Occult Blood-Urine Negative /ul (Negative); Protein-Dipstick 30 mg/dl (Negative); Urine Bilirubin Dipstick Negative (Negative); Urine Clarity Clear (Clear); Urine Urobilinogen Normal (Normal); Urine pH 6.5 (5.0 - 8.0)
[2021-01-15 14:04] LABS: Squamous Epithelial Cells - UA 0-5 SEEN /hpf (5-10)
[2021-01-15] MEDS: LORazepam 2 MG/ML Syringe 0.5 MG IV (15:30)
[2021-01-15] MEDS: 0.9% Normal Saline 1,000 ML 999 ML IV (15:31)
[2021-01-15 16:28] VITALS: BP 142/95; PULSE 106; RESP 17; O2SAT 97
== END 2021-01-15 16:29 | disposition home or self-care (01) ==
PROVIDERS: Emergency Provider Emergency Medicine
DX: R10.84 Generalized abdominal pain (principal); R11.2 Nausea with vomiting, unspecified; F17.210 Nicotine dependence, cigarettes, uncomplicated; Z90.49 Acquired absence of other specified parts of digestive tract; I25.10 Atherosclerotic heart disease of native coronary artery without angina pectoris; E11.9 Type 2 diabetes mellitus without complications; K21.9 Gastro-esophageal reflux disease without esophagitis; E78.5 Hyperlipidemia, unspecified; I50.9 Heart failure, unspecified; I11.0 Hypertensive heart disease with heart failure; Z79.4 Long term (current) use of insulin; Z79.82 Long term (current) use of aspirin; Z79.899 Other long term (current) drug therapy
CPT/HCPCS: 74022; 80053; 81001; 83690; 84484; 85025; 93005; 96361; 96374; 96375; 99285; J7030; A4216; J2405

== ENCOUNTER 2021-01-18 11:03 | Emergency (ER) | payer MEDICAID, SELFPAY ==
[2021-01-18 11:04] VITALS: BP 123/82; PULSE 144; RESP 18; TEMP 36.8; O2SAT 98; BMI 25.7
--- NOTE | 2021-01-18 11:19 | CT_ITS ---
STUDY: CT ABDOMEN AND PELVIS WITH CONTRAST REASON FOR EXAM: Female, 50 years old. Abdominal pain -- IV PO Contrast. Elevated white cell count. RADIATION DOSAGE (If Supplied By Facility): CTDIvol = ( 15.59 ) mGy, DLP = ( 942.69 ) mGycm TECHNIQUE: Transaxial images were obtained from the dome of the diaphragm to the symphysis pubis with oral contrast. Oral and amp; IV Gastrografin and amp; 100mL Isovue-300 was administered. Sagittal and coronal images were reconstructed. Individualized dose optimization techniques were used for this CT. COMPARISON: Comparison is made with prior study dated 12/30/2020 FINDINGS: The visualized lung bases are unremarkable. The visualized portions of the heart are within normal limits. There is decreased attenuation of the liver consistent with steatosis. Stable 1.5 cm hypodensity in the lateral aspect of the right lobe of the liver. This may represent a small hemangioma. There are surgical clips in the gallbladder fossa consistent with a prior cholecystectomy. Normal spleen. Normal pancreas. There is a small, circumscribed, smooth, low attenuation right adrenal mass, consistent with an adrenal adenoma. This measures 1.7 cm. 1.3 cm adenoma in the left adrenal gland. Normal right kidney. 1.9 cm cyst in the upper pole of the left kidney. Normal visualized stomach. Normal small intestine. Persistent mucosal thickening and edematous changes of the cecum, ascending colon and proximal transverse colon. Colitis should be ruled out. There are surgical clips in the region of the appendix consistent with a prior appendectomy. There is diffuse atherosclerotic calcification of the abdominal aorta, without a demonstrated aneurysm. Normal inferior vena cava. Normal retroperitoneum. Normal urinary bladder. Normal abdominal wall. There are degenerative changes of the visualized lumbar spine. CT/Abdomen/Pelvis WITH Contrast IMPRESSION: Findings suggestive of colitis involving the right hemicolon. Left renal cyst. Status post cholecystectomy. Stable bilateral adrenal adenomas. Stable 1.5 cm hypodensity in the lateral aspect of the right lobe of the liver suggestive of a small hemangioma. Electronically Signed: Ryan Tejeda MD at 13:49 EDT , Service support ,
--- NOTE | 2021-01-18 11:21 | EDS_ITS ---
HPI HPI - GI History of Present Illness Chief Complaint: Nausea/Vomiting Informant: patient Abdominal Pain/Flank Pain Onset: Today Context: Gradual Onset Timing: Continuous Quality: Dull Location: Diffuse Worsened by: - (Vomiting) Relieved by: Nothing Nausea/Vomiting/Emesis GI Symptom: Positive for Nausea and Vomiting Onset: Today Diarrhea/Melena/Hematochezia GI Symptom: Negative for Diarrhea, Melena and Hematochezia Associated Symptoms Associated Symptoms: Negative for Dysuria, Frequency and Hematuria Narrative Narrative: Patient presents with nausea and vomiting that began today. Patient states she woke up this morning and started having nausea and vomiting. Patient denies any hematemesis or coffee-ground emesis. Patient admits to some diffuse abdominal pain because of the vomiting. Patient states that she took a bath this morning and when she got out of the bath she felt dizzy and lightheaded. Patient states she felt like there was a spinning sensation and things went black. Patient denies any loss of consciousness. Patient denies any diarrhea, melena, or hematochezia. Patient denies any dysuria or hematuria. Patient denies any fevers or chills. [facility] Medical History CAD (coronary artery disease), [place] coronary artery CHF (congestive heart failure) Diabetes mellitus, type 2 GERD (gastroesophageal reflux disease) HTN (hypertension) Hyperlipidemia Toe amputee Home Medications insulin glargine [Lantus SoloStar Pen] 40 units SUBCUT DAILY 11/04/13 [History Last Taken 10/21/18] aspirin 81 mg PO DAILY 10/16/18 [History Last Taken 10/20/18] atorvastatin 80 mg PO QHS 10/16/18 [History Last Taken 10/20/18] insulin lispro [Humalog KwikPen] See Protocol SQ TID 10/16/18 [History Last Taken 10/21/18] nitroglycerin [Nitrostat] 0.4 mg SUBLINGUAL Q5M PRN 10/16/18 [History Last Taken Unknown] escitalopram oxalate 10 mg PO DAILY 01/15/21 [History Last Taken Unknown] promethazine 25 mg PO Q6H PRN PRN #10 tablet 01/15/21 [Rx Last Taken Unknown] ciprofloxacin HCl [Cipro] 500 mg PO BID #20 tab 01/18/21 [Rx Last Taken Unknown] metronidazole 500 mg PO Q6H #40 tab 01/18/21 [Rx Last Taken Unknown] Allergy/AdvReac Type Severity Reaction Status Date / Time latex Allergy Hives Verified 01/18/21 11:06 Surgical History History of cholecystectomy Social History household members: spouse and children housing: house Smoking Status: Current every day smoker tobacco type: cigarettes alcohol intake: never what type of physical activity do you participate in: none do you feel safe at home: Yes ROS ROS ED Constitutional Constitutional ED: Denies chills or fever(s) Eyes Eyes: Denies blurry vision or change in vision ENT ENT ED: Denies rhinorrhea or sore throat Cardiovascular Cardiovascular: Denies chest pain or palpitations Respiratory/Chest Respiratory/Chest: Denies cough or dyspnea Gastrointestinal Gastrointestinal: Reports abdominal pain, nausea and vomiting; Denies diarrhea or melena Genitourinary Genitourinary ED: Denies dysuria or hematuria Musculoskeletal Musculoskeletal: Reports back pain; Denies neck pain Integumentary Denies abscess or rash Neurologic Neurologic: Reports headache(s); Denies weakness Allergic/Immunologic Allergic/Immunologic ED: Denies mouth swelling or urticaria EXAM Physical Exam Const Vital Signs: 01/18/21 11:04 01/18/21 13:50 Temperature 98.2 F Temperature Source Temporal Pulse Rate 144 H 90 Respiratory Rate 18 18 Blood Pressure 123/82 H 130/85 H Blood Pressure Mean 95 100 Pulse Ox 98 98 Oxygen Delivery Method Room Air Nasal Cannula Positive well nourished and well developed General Appearance ED: well developed HEENT Reports moist mucous membranes Neck supple and no JVD Resp normal respiratory effort and clear to auscultation bilaterally Cardio regular rate and regular rhythm GI non-distended Palpation: soft and tender epigastric, LLQ, RLQ, LUQ, RUQ, periumbilical and suprapubic; Negative for guarding or rebound tenderness present Extremity full ROM General Extremety ED: Negative for edema or tenderness General Extremity: Negative for edema Neuro CN's II-XII intact bilaterally, moves all extremities and no sensory deficits noted Sensorium / Orientation: alert and oriented to person Psych mental status grossly normal MDM MDM MDM Narrative Medical decision making narrative: Patient was given IV fluids, morphine, and Zofran here. CBC shows a slight leukocytosis of 11.5. Comprehensive metabolic profile showed an elevated glucose of 461. Anion gap was normal. Lipase was normal. Serum hCG was negative. Urinalysis does not show any evidence of urin kem tract infection. CT scan of the abdomen pelvis was obtained. There is colitis of the right hemicolon. There is no other acute intra-abdominal process. This was interpreted by the radiologist and reviewed by myself. Patient was given a dose of insulin here. Patient was given a repeat dose of morphine and Zofran. Patient was given prescriptions for Cipro and Flagyl. Patient was instructed to avoid alcohol. Patient was instructed to follow-up with her primary care physician in 5 to 7 days. Patient understood and was agreeable with the plan. All questions were answered. Lab Data Attestation: I reviewed the patient's lab results. Labs: Laboratory Results - last 24 hr 01/18/21 01/18/21 01/18/21 11:20 11:20 11:20 WBC 11.5 H RBC 6.16 H Hgb 16.9 H Hct 51.6 H MCV 83.8 MCH 27.4 MCHC 32.8 RDW Std Deviation 38.6 RDW Coeff of [place] 12.7 Plt Count 250 MPV 9.7 Immature Gran % (Auto) 0.300 Neut % (Auto) 80.6 H Lymph % (Auto) 14.7 L [place] % (Auto) 3.4 Eos % (Auto) 0.3 Baso % (Auto) 0.7 Absolute Neuts (auto) 9.2 H Absolute Lymphs (auto) 1.68 Nucleated RBC % 0 Sodium 132 L Potassium 4.5 Chloride 100 Carbon Dioxide 28.0 Anion Gap 4 L BUN 9 Creatinine 0.96 Estim Creat Clear Calc 66.36 Est GFR (MDRD) Af Amer 79 Est GFR (MDRD) Non-Af 65 BUN/Creatinine Ratio 9.3 L Glucose 461 H* Calcium 9.3 Total Bilirubin 1.20 H AST 22 ALT 22 Alkaline Phosphatase 115 Total Protein 7.9 Albumin 3.6 Globulin 4.3 H Albumin/Globulin Ratio 0.8 L Lipase 122 Serum , Qual NEGATIVE Urine Color Urine Clarity Urine pH Ur Specific [place] Urine Protein Urine Glucose (UA) Urine Ketones Urine Occult Blood Urine Nitrite Urine Bilirubin Urine Urobilinogen Ur Leukocyte Esterase Urine RBC Urine WBC Ur Squamous Epith Cells Urine Bacteria Urine Mucus 01/18/21 12:49 WBC RBC Hgb Hct MCV MCH MCHC RDW Std Deviation RDW Coeff of [place] Plt Count MPV Immature Gran % (Auto) Neut % (Auto) Lymph % (Auto) [place] % (Auto) Eos % (Auto) Baso % (Auto) Absolute Neuts (auto) Absolute Lymphs (auto) Nucleated RBC % Sodium Potassium Chloride Carbon Dioxide Anion Gap BUN Creatinine Estim Creat Clear Calc Est GFR (MDRD) Af Amer Est GFR (MDRD) Non-Af BUN/Creatinine Ratio Glucose Calcium Total Bilirubin AST ALT Alkaline Phosphatase Total Protein Albumin Globulin Albumin/Globulin Ratio Lipase Serum , Qual Urine Color Yellow Urine Clarity Clear Urine pH 6.5 Ur Specific [place] 1.010 Urine Protein 15 H Urine Glucose (UA) 1000 H Urine Ketones Negative Urine Occult Blood Negative Urine Nitrite Negative Urine Bilirubin Negative Urine Urobilinogen Normal Ur Leukocyte Esterase Negative Urine RBC 0 SEEN Urine WBC 0 SEEN Ur Squamous Epith Cells 0-5 SEEN Urine Bacteria RARE Urine Mucus 0 SEEN Radiography Diagnostic Testing: Radiology Impression Abdomen/Pelvis CT 01/18/21 11:19 IMPRESSION: Findings suggestive of colitis involving the right hemicolon. Left renal cyst. Status post cholecystectomy. Stable bilateral adrenal adenomas. Stable 1.5 cm hypodensity in the lateral aspect of the right lobe of the liver suggestive of a small hemangioma. Electronically Signed: Ryan Tejeda MD at 13:49 EDT , Service support , Discharge Plan Triage Chief Complaint: Nausea/Vomiting ED Provider: Riccardo Hillman Dx/Rx/DC Orders Clinical Impression: Colitis, Hyperglycemia Instructions: ED Understanding Colitis, ED Diabetic Hyperglycemia Prescriptions: New ciprofloxacin HCl [Cipro] 500 mg tablet 500 mg PO BID Qty: 20 RF: 0 metronidazole 500 mg tablet 500 mg PO Q6H Qty: 40 RF: 0 No Action Lantus Solostar U-100 Insulin 100 UNITS/ML insulin pen 40 units subcut DAILY RF: 0 atorvastatin 80 MG tablet 80 mg PO QHS RF: 0 aspirin 81 MG tablet 81 mg PO DAILY RF: 0 nitroglycerin [Nitrostat] 0.4 MG tablet, sublingual 0.4 mg sublingual Q5M PRN (Reason: CHEST PAIN) RF: 0 insulin lispro [Humalog KwikPen Insulin] 100 UNIT/ML insulin pen See Protocol unit SQ TID RF: 0 escitalopram oxalate 10 mg tablet 10 mg PO DAILY RF: 0 promethazine [promethazine] 25 MG tablet 25 mg PO Q6H PRN PRN (Reason: Nausea) Qty: 10 RF: 0 Primary Care Provider: Ama Neff Referrals: Ama Neff [Primary Care Provider] - 3-5 Days Disposition Disposition: Home, Self Care
[2021-01-18 11:31] LABS: Absolute Lymphocyte Count 1.68 X10^3/uL (0.83-4.51); Absolute Neutrophil Count 9.2 X10^3/uL (2.0-7.7); Basophil# 0.08 X10^3/uL; Basophil% 0.7 % (0-1); Eosinophil# 0.04 X10^3/uL; Eosinophils% 0.3 % (0-5); Hematocrit 51.6 % (37-47); Hemoglobin 16.9 g/dL (12.0-15.0); Lymphocyte # 1.68 X10^3/ul (0.83-4.51); Lymphocyte % 14.7 % (19-41); Mean Corp Hgb Conc 32.8 g/dL (32-36); Mean Corpuscular Hgb 27.4 pg (27.0-32.0); Mean Corpuscular Volume 83.8 fL (81-99); Mean Platelet Vol. 9.7 fl (6.2-12.0); Monocyte# 0.39 X10^3/uL; Monocyte% 3.4 % (0-10); NRBC Flagged by Analyzer 0 % (0-5); Neutrophil # 9.23 X10^3/uL (2.7-7.7); Neutrophil % 80.6 % (47-70); Platelet Count 250 K/mm3 (150-450); RBC Distribution Width CV 12.7 % (11.6-14.6); RBC Distribution Width SD 38.6 fl (35.1-43.9); Red Blood Count 6.16 M/mm3 (4.2-5.4); White Blood Count 11.5 K/mm3 (4.4-11.0)
[2021-01-18] MEDS: 0.9% Normal Saline 1,000 ML 1000 ML IV (11:39)
[2021-01-18] MEDS: Ondansetron 4 MG/2 ML Vial IV ×2 (11:40→13:30)
[2021-01-18] MEDS: Morphine 4 MG/ML Syringe IV ×2 (11:41→13:30)
[2021-01-18 11:43] LABS: Internal QC Validated? YES +Cl - CLEAR BKGD; Pregnancy, Serum, hCG Quali. NEGATIVE Negative
[2021-01-18 11:49] LABS: ALB/GLOB Ratio 0.8 RATIO (0.9-2.4); AST(SGOT) 22 U/L (15-37); Alanine Aminotransfer ALT/SGPT 22 U/L (13-56); Albumin, Serum 3.6 g/dL (3.2-5.0); Alkaline Phosphatase 115 U/L (45-117); Anion Gap 4 (5-15); BUN 9 mg/dL (7-18); BUN/Creat Ratio 9.3 RATIO (10-20); Calcium,Total 9.3 mg/dL (8.5-10.1); Chloride 100 mmol/L (98-107); Creatinine, Serum 0.96 mg/dL (0.55-1.02); EST Glomerular Filtration Rate 65 mL/min (>60); Est Glom Filt Rate - Afr Amer 79 mL/min (>60); Estimated Creatinine Clearance 66.36 ml/min; Globulin 4.3 g/dL (2.2-4.2); Glucose 461 mg/dL (74-106); Lipase 122 U/L (73-393); Potassium 4.5 mmol/L (3.5-5.1); Protein, Total 7.9 g/dL (6.4-8.2); Sodium Level 132 mmol/L (136-145)
[2021-01-18] MEDS: Insulin Lispro 100 UNIT/ML INSULN.PEN 15 UNIT SC (12:13)
[2021-01-18 13:01] LABS: Mucous, Urine 0 SEEN /hpf (<or=2+); Red Blood Cells-Urine 0 SEEN /hpf (0-5); White Blood Cells 0 SEEN /hpf (0-5)
[2021-01-18 13:02] LABS: Color, Urine Yellow (Yellow); Glucose, Dipstick 1000 mg/dl (Normal); Ketone-Dipstick Negative (Negative); Leukocyte Esterase-Dipstick Negative /ul (Negative); Nitrite-Dipstick Negative (Negative); Occult Blood-Urine Negative /ul (Negative); Protein-Dipstick 15 mg/dl (Negative); Urine Bilirubin Dipstick Negative (Negative); Urine Clarity Clear (Clear); Urine Urobilinogen Normal (Normal); Urine pH 6.5 (5.0 - 8.0)
[2021-01-18 13:08] LABS: Bacteria RARE /hpf (None Seen); Squamous Epithelial Cells - UA 0-5 SEEN /hpf (5-10)
[2021-01-18 13:50] VITALS: BP 130/85; PULSE 90; RESP 18; O2SAT 98
[2021-01-18 14:31] LABS: Bedside Glucose 292 mg/dL (70-110)
[2021-01-18] MEDS: Ciprofloxacin 500 MG Tablet PO (14:45)
[2021-01-18] MEDS: metroNIDAZOLE 500 MG Tablet PO (14:45)
[2021-01-18 14:47] VITALS: BP 142/96; PULSE 117; RESP 20; O2SAT 99
== END 2021-01-18 14:47 | disposition home or self-care (01) ==
PROVIDERS: Emergency Provider Emergency Medicine
DX: K52.9 Noninfective gastroenteritis and colitis, unspecified (principal); E11.65 Type 2 diabetes mellitus with hyperglycemia; D35.01 Benign neoplasm of right adrenal gland; D35.02 Benign neoplasm of left adrenal gland; E78.5 Hyperlipidemia, unspecified; I11.0 Hypertensive heart disease with heart failure; I25.10 Atherosclerotic heart disease of native coronary artery without angina pectoris; I50.9 Heart failure, unspecified; K21.9 Gastro-esophageal reflux disease without esophagitis; N28.1 Cyst of kidney, acquired; F17.210 Nicotine dependence, cigarettes, uncomplicated; Z79.4 Long term (current) use of insulin; Z79.82 Long term (current) use of aspirin; Z90.49 Acquired absence of other specified parts of digestive tract
CPT/HCPCS: 74177; 80053; 81001; 82962; 83690; 84703; 85025; 96361; 96374; 96375; 96376; 99283; Q9967; A4216; J2405

== ENCOUNTER 2021-02-10 13:00 | Emergency (ER) | payer MEDICAID, SELFPAY ==
[2021-02-10 13:01] VITALS: BP 143/100; PULSE 120; RESP 16; TEMP 36.2; O2SAT 99; BMI 25.5
--- NOTE | 2021-02-10 15:11 | EDS_ITS ---
HPI History of Present Illness Chief Complaint: General Illness Detail of Chief Complaint: Cough and shortness of breath Informant: patient Onset/Context/Timing Onset: Days Context: Gradual Onset Timing: Continuous Current Severity: Mild Maximum Severity: Mild Narrative Narrative: 50-year-old female history of diabetes, cardiomyopathy and prior PE and DVT. Patient states her last week she has had URI symptoms. Cough of greenish sputum. No associated nausea and vomiting last night. No chills. And is feeling worse. She did get Covid vaccinated x2 earlier this year. Prior similar symptoms: No Recent Illness/Hospitalization: No PFSH PFSH Medical History CAD (coronary artery disease), [place] coronary artery CHF (congestive heart failure) Diabetes mellitus, type 2 GERD (gastroesophageal reflux disease) HTN (hypertension) Hyperlipidemia Toe amputee Home Medications insulin glargine [Lantus SoloStar Pen] 40 units SUBCUT DAILY 11/04/13 [History Last Taken 10/21/18] aspirin 81 mg PO DAILY 10/16/18 [History Last Taken 10/20/18] atorvastatin 80 mg PO QHS 10/16/18 [History Last Taken 10/20/18] insulin lispro [Humalog KwikPen] See Protocol SQ TID 10/16/18 [History Last Taken 10/21/18] nitroglycerin [Nitrostat] 0.4 mg SUBLINGUAL Q5M PRN 10/16/18 [History Last Taken Unknown] escitalopram oxalate 10 mg PO DAILY 01/15/21 [History Last Taken Unknown] promethazine 25 mg PO Q6H PRN PRN #10 tablet 01/15/21 [Rx Last Taken Unknown] ciprofloxacin HCl [Cipro] 500 mg PO BID #20 tab 01/18/21 [Rx Last Taken Unknown] metronidazole 500 mg PO Q6H #40 tab 01/18/21 [Rx Last Taken Unknown] ondansetron 4 mg PO Q8H PRN 3 Days #10 tab 02/10/21 [Rx Last Taken Unknown] prednisone 40 mg PO DAILY 5 Days #10 tab 02/10/21 [Rx Last Taken Unknown] Allergy/AdvReac Type Severity Reaction Status Date / Time latex Allergy Hives Verified 02/10/21 13:04 Surgical History History of cholecystectomy Social History household members: spouse and children housing: house Smoking Status: Current every day smoker tobacco type: cigarettes alcohol intake: never what type of physical activity do you participate in: none do you feel safe at home: Yes ROS ROS ED ROS Narrative Cough, green sputum, chills, shortness of breath, nausea and vomiting. Review of Systems ROS Unobtainable: Denies due to encephalopathy Constitutional Constitutional ED: Reports chills; Denies fever(s) Eyes Eyes: Denies change in vision ENT ENT ED: Denies ear pain or sore throat Cardiovascular Cardiovascular: Reports chest pain Respiratory/Chest Respiratory/Chest: Reports cough, dyspnea and sputum Gastrointestinal Gastrointestinal: Reports nausea and vomiting; Denies abdominal pain or diarrhea Genitourinary Genitourinary ED: Denies dysuria or hematuria Musculoskeletal Musculoskeletal: Reports myalgias Integumentary Denies rash Neurologic Neurologic: Denies headache(s) Psychiatric Psychiatric: Denies depression Endocrine Endocrinology: Denies polyuria Allergic/Immunologic Allergic/Immunologic ED: Denies urticaria EXAM Physical Exam Narrative Exam Narrative: Middle-aged female vital signs stable she is tachycardic. Pulse ox is 99% on room air no hypoxia. HEENT exam mild dry mucous memories. Neck nontender no JVD no lymphadenopathy. Lungs coarse breath sounds bilaterally. Expiratory wheezes. No rales or rhonchi. Heart tachycardic rate about 120 no murmur. Abdomen soft nontender normal bowel sounds no peritoneal signs. Patient moving all 4 extremities. No edema. Calves nontender. Neurologically she is awake alert with no focal motor deficits. Const Vital Signs: 02/10/21 13:01 02/10/21 15:34 02/10/21 16:00 Temperature 97.2 F L Temperature Source Temporal Pulse Rate 120 H 104 H Respiratory Rate 16 19 H Respiratory Effort Short of Breath Blood Pressure 143/100 H 123/89 H Blood Pressure Mean 114 100 Pulse Ox 99 Oxygen Delivery Method Room Air Room Air Positive well nourished and well developed; Negative for cachectic, contractures or unkempt General Appearance ED: well developed; Negative for unkempt, cachectic or contractures Nutritional Appearance: Negative for cachectic HEENT Reports dry mucous membranes Negative for trauma or tenderness Mouth ED: Yes dry mucous membranes Mouth: dry mucous membranes Eyes PERRL and EOMs intact bilaterally Neck no lymphadenopathy, supple and no JVD General: Negative for tenderness Chest Wall inspection of chest normal and palpation of chest normal Resp normal respiratory effort Auscultation: wheezes; Negative for rales or rhonchi Cardio regular rhythm and no murmurs Rate: tachycardic GI normal to inspection, nondistended, normoactive bowel sounds, non-tender, non- distended and no masses Inspection: Negative for abdominal distention Auscultation: normoactive bowel sounds Palpation: soft; Negative for tender, guarding or rebound tenderness present Back/Spine no CVA tenderness General Back: Negative for CVA tenderness Extremity normal to inspection General Extremety ED: Negative for edema or tenderness General Extremity: Negative for edema Neuro oriented x3 and CN's II-XII intact bilaterally Sensorium / Orientation: alert; Negative for orientation impaired, lethargic or stuporous Motor Exam: strength 5/5 throughout Psych mental status grossly normal Appearance: Negative for unkempt Skin no rashes or lesions noted and no wounds MDM MDM MDM Narrative Medical decision making narrative: 50-year-old female history of diabetes cardiomyopathy and prior pulmonary emboli presenting with and shortness of breath. Differential includes Covid versus other viral syndrome versus pneumonia versus other etiologies. She undergo cardiac work-up. Will be treated with IV fluids, Toradol for pain. Zofran for nausea. And Decadron. Repeat exam patient is doing better at 16:26. Heart rate is 100. She clinically feels better. She will be given subcu insulin 10 units prior to discharge. Started on prednisone at home. Follow-up with [facility]. And written for nausea medication. She knows return if worse. Lab Data Attestation: I reviewed the patient's lab results. Lab results narrative: CBC shows white count 12.1. Hemoglobin is 16. Electrolytes sodium 128 gap of 5. Normal creatinine. Glucose elevated 469 she is diabetic. Covid is negative. Labs: Laboratory Results - last 24 hr 02/10/21 02/10/21 15:17 15:17 WBC 12.1 H RBC 6.14 H Hgb 16.9 H Hct 50.8 H MCV 82.7 MCH 27.5 MCHC 33.3 RDW Std Deviation 36.8 RDW Coeff of [place] 12.2 Plt Count 266 MPV 9.4 Immature Gran % (Auto) 0.700 Neut % (Auto) 73.1 H Lymph % (Auto) 18.4 L [place] % (Auto) 6.2 Eos % (Auto) 0.9 Baso % (Auto) 0.7 Absolute Neuts (auto) 8.8 H Absolute Lymphs (auto) 2.22 Nucleated RBC % 0 Sodium 128 L Potassium 4.2 Chloride 97 L Carbon Dioxide 26.0 Anion Gap 5 BUN 5 L Creatinine 0.75 Estim Creat Clear Calc 84.94 Est GFR (MDRD) Af Amer 105 Est GFR (MDRD) Non-Af 87 BUN/Creatinine Ratio 6.6 L Glucose 469 H* Calcium 9.0 Radiography Chest X-Ray - ED: 1 View, Read by Radiologist, Heart, Lungs, Mediastinum, Bony Structures, No Acute Disease and Chronic Changes Diagnostic Testing: Radiology Impression Chest X-Ray 02/10/21 15:36 IMPRESSION: Normal x-ray examination of the chest. Electronically Signed: Ryan Tejeda MD at 15:53 EDT , Service support , Portable single view chest x-ray interpreted by myself and the radiologist shows no acute abnormality. Rhythm Strip Rhythm Strip: Sinus Tach Rate: 125 Ectopy: None EKG Initial EKG: Attestation: I personally reviewed and interpreted this EKG as follows: Interpretation: No Acute Injury Pattern and Sinus Tachycardia Comments: Sinus tachycardia rate of 125. Right atrial enlargement. No acute VA. No change from prior EKG from February 10. Discharge Plan Triage Chief Complaint: General Illness ED Provider: Ananda Coyle Dx/Rx/DC Orders Clinical Impression: Bronchitis, Hyperglycemia due to diabetes mellitus Instructions: ED Diabetic Hyperglycemia, ED URI, Viral W/ Wheezing (Adult) Prescriptions: New prednisone 20 mg tablet 40 mg PO DAILY 5 Days Qty: 10 RF: 0 ondansetron 4 mg tablet,disintegrating 4 mg PO Q8H PRN (Reason: nausea and vomiting) 3 Days Qty: 10 RF: 0 No Action Lantus Solostar U-100 Insulin 100 UNITS/ML insulin pen 40 units subcut DAILY RF: 0 atorvastatin 80 MG tablet 80 mg PO QHS RF: 0 aspirin 81 MG tablet 81 mg PO DAILY RF: 0 nitroglycerin [Nitrostat] 0.4 MG tablet, sublingual 0.4 mg sublingual Q5M PRN (Reason: CHEST PAIN) RF: 0 insulin lispro [Humalog KwikPen Insulin] 100 UNIT/ML insulin pen See Protocol unit SQ TID RF: 0 escitalopram oxalate 10 mg tablet 10 mg PO DAILY RF: 0 promethazine [promethazine] 25 MG tablet 25 mg PO Q6H PRN PRN (Reason: Nausea) Qty: 10 RF: 0 ciprofloxacin HCl [Cipro] 500 mg tablet 500 mg PO BID Qty: 20 RF: 0 metronidazole 500 mg tablet 500 mg PO Q6H Qty: 40 RF: 0 Primary Care Provider: Ama Neff Referrals: Ama Neff [Primary Care Provider] - 3-5 Days if not improving Activity Restrictions/Additional Instructions: Plenty of fluids and rest. Watch your blood sugars closely check it again tonight before you go to bed. Take your normal medications. Prednisone daily to decrease your wheezing and help your breathing. It may increase your blood sugars. Zofran as needed for nausea. Return if worse or follow-up with your primary care provider if not improving. Disposition Disposition: Home, Self Care
--- NOTE | 2021-02-10 15:12 | EKG12_ITS ---
Test Reason : Blood Pressure : / mmHG Vent. Rate : 125 BPM Atrial Rate : 125 BPM P-R Int : 146 ms QRS Dur : 098 ms QT Int : 320 ms P-R-T Axes : 059 -41 068 degrees QTc Int : 461 ms Sinus tachycardia Right atrial enlargement Left axis deviation Consider voltage criteria for LVH Poor R wave progression Septal NC, age undetermined, cannot be excluded Abnormal ECG Confirmed by TOÑO HERNANDEZ, MELVINA ([id number]), assignment desk editor FELICIA HOLCOMB ([id number]) on 02/14/2021 11:34:56 AM Referred By: EYAL Confirmed By:MELVINA LUNDBERG MD
[2021-02-10 15:25] LABS: Absolute Lymphocyte Count 2.22 X10^3/uL (0.83-4.51); Absolute Neutrophil Count 8.8 X10^3/uL (2.0-7.7); Basophil# 0.08 X10^3/uL; Basophil% 0.7 % (0-1); Eosinophil# 0.11 X10^3/uL; Eosinophils% 0.9 % (0-5); Hematocrit 50.8 % (37-47); Hemoglobin 16.9 g/dL (12.0-15.0); Lymphocyte # 2.22 X10^3/ul (0.83-4.51); Lymphocyte % 18.4 % (19-41); Mean Corp Hgb Conc 33.3 g/dL (32-36); Mean Corpuscular Hgb 27.5 pg (27.0-32.0); Mean Corpuscular Volume 82.7 fL (81-99); Mean Platelet Vol. 9.4 fl (6.2-12.0); Monocyte# 0.75 X10^3/uL; Monocyte% 6.2 % (0-10); NRBC Flagged by Analyzer 0 % (0-5); Neutrophil # 8.84 X10^3/uL (2.7-7.7); Neutrophil % 73.1 % (47-70); Platelet Count 266 K/mm3 (150-450); RBC Distribution Width CV 12.2 % (11.6-14.6); RBC Distribution Width SD 36.8 fl (35.1-43.9); Red Blood Count 6.14 M/mm3 (4.2-5.4); White Blood Count 12.1 K/mm3 (4.4-11.0)
[2021-02-10] MEDS: 0.9% Normal Saline 1,000 ML 1000 ML IV (15:26)
[2021-02-10] MEDS: Ondansetron 4 MG/2 ML Vial IV (15:27)
[2021-02-10] MEDS: dexAMETHasone 10 MG/ML Vial IV (15:27)
[2021-02-10] MEDS: Ketorolac 30 MG/ML Syringe IV (15:27)
--- NOTE | 2021-02-10 15:36 | RAD_ITS ---
STUDY: X-RAY CHEST REASON FOR EXAM: Female, 50 years old. Cough TECHNIQUE: Single AP portable view of the chest. COMPARISON: Comparison is made with prior examination dated 12/30/2020. FINDINGS: EKG electrodes are seen. The lungs are clear and expanded. There is no demonstrated pleural abnormality. Normal size heart. Normal mediastinum and edmundo. Normal visualized pulmonary arteries. Normal visualized aortic arch and descending thoracic aorta. Normal visualized thoracic spine. Normal visualized ribs, clavicles, and shoulders. There is no demonstrated abnormality of the visualized soft tissue structures of the upper abdomen. RAD/Chest 1 View (Portable) IMPRESSION: Normal x-ray examination of the chest. Electronically Signed: Ryan Tejeda MD at 15:53 EDT , Service support ,
[2021-02-10 15:48] LABS: Anion Gap 5 (5-15); BUN 5 mg/dL (7-18); BUN/Creat Ratio 6.6 RATIO (10-20); Chloride 97 mmol/L (98-107); Creatinine, Serum 0.75 mg/dL (0.55-1.02); EST Glomerular Filtration Rate 87 mL/min (>60); Est Glom Filt Rate - Afr Amer 105 mL/min (>60); Estimated Creatinine Clearance 84.94 ml/min; Glucose 469 mg/dL (74-106); Potassium 4.2 mmol/L (3.5-5.1); Sodium Level 128 mmol/L (136-145)
[2021-02-10 16:00] VITALS: BP 123/89; PULSE 104; RESP 19
[2021-02-10] MEDS: Insulin Lispro 100 UNIT/ML INSULN.PEN 10 UNIT SC (17:12)
[2021-02-10 17:14] VITALS: BP 123/79; PULSE 71; RESP 18; O2SAT 98
== END 2021-02-10 17:15 | disposition home or self-care (01) ==
LOC: ED 16:32
PROVIDERS: Emergency Provider Emergency Medicine
DX: J40 Bronchitis, not specified as acute or chronic (principal); E11.65 Type 2 diabetes mellitus with hyperglycemia; E78.5 Hyperlipidemia, unspecified; I25.10 Atherosclerotic heart disease of native coronary artery without angina pectoris; I11.0 Hypertensive heart disease with heart failure; I42.9 Cardiomyopathy, unspecified; I50.9 Heart failure, unspecified; K21.9 Gastro-esophageal reflux disease without esophagitis; F17.210 Nicotine dependence, cigarettes, uncomplicated; Z79.4 Long term (current) use of insulin; Z79.52 Long term (current) use of systemic steroids; Z79.82 Long term (current) use of aspirin; Z86.711 Personal history of pulmonary embolism; Z86.718 Personal history of other venous thrombosis and embolism
CPT/HCPCS: 71045; 80048; 85025; 87426; 93005; 96361; 96374; 96375; 99282; J7030; A4216; J2405

== ENCOUNTER 2021-08-04 17:49 | Inpatient (IN) | payer MEDICAID, SELFPAY ==
[2021-08-04 17:49] VITALS: BP 120/91; PULSE 120; RESP 16; TEMP 35.9; O2SAT 100; BMI 28.1
[2021-08-04 18:01] VITALS: BP 120/97; PULSE 76; RESP 17; TEMP 36.9; O2SAT 98
--- NOTE | 2021-08-04 18:06 | RAD_ITS ---
STUDY: X-RAY - LEFT FOOT CLINICAL: Female, 50 years old. PAIN TECHNIQUE: 3 view(s) of the foot. COMPARISON: None. FINDINGS: Normal talus, calcaneus, and tarsal bones. Calcaneal spurring. Normal visualized subtalar, talonavicular, calcaneocuboid, tarsal and tarsometatarsal articulations. Status post transmetatarsal amputation of the foot. The soft tissue structures are unremarkable. No subcutaneous emphysema. Vascular calcifications. RAD/Foot min 3 Views IMPRESSION: Status post transmetatarsal amputation of the foot. Electronically Signed: Raghav Parker DO at 19:07 EST ,
--- NOTE | 2021-08-04 18:07 | RAD_ITS ---
STUDY: X-RAY - LEFT ANKLE REASON FOR EXAM: Female, 50 years old. Injury/Pain TECHNIQUE: 3 view(s) of the ankle. COMPARISON: None. FINDINGS: Normal visualized distal tibia and fibula. Normal medial and lateral malleoli. Normal tibiotalar articulation and ankle mortise. Normal visualized talus and calcaneus. Calcaneal spurring. The visualized subtalar, talonavicular, calcaneocuboid and tarsal articulations are normal. Mild lateral soft tissue swelling. RAD/Ankle min 3 Views IMPRESSION: Soft tissue swelling laterally of the ankle. Electronically Signed: Raghav Parker DO at 19:08 EST Reading Location ID and State: [facility] / [place] Tel [phone], Service support ,
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
[2021-08-04] MEDS: 0.9% Normal Saline 1,000 ML 999 ML IV ×2 (18:37→20:10)
[2021-08-04] MEDS: Ondansetron 4 MG/2 ML Vial IV (18:37)
[2021-08-04] MEDS: Morphine 4 MG/ML Syringe IV ×2 (18:38→22:30)
[2021-08-04 18:50] LABS: Absolute Lymphocyte Count 1.18 X10^3/uL (0.83-4.51); Absolute Neutrophil Count 9.2 X10^3/uL (2.0-7.7); Basophil# 0.06 X10^3/uL; Basophil% 0.5 % (0-1); Eosinophils% 0.9 % (0-5); Hematocrit 48.2 % (37-47); Hemoglobin 16.7 g/dL (12.0-15.0); Lymphocyte # 1.18 X10^3/ul (0.83-4.51); Lymphocyte % 10.6 % (19-41); Mean Corp Hgb Conc 34.6 g/dL (32-36); Mean Corpuscular Hgb 28.2 pg (27.0-32.0); Mean Corpuscular Volume 81.4 fL (81-99); Mean Platelet Vol. 10.5 fl (6.2-12.0); Monocyte# 0.56 X10^3/uL; NRBC Flagged by Analyzer 0 % (0-5); Neutrophil # 9.23 X10^3/uL (2.7-7.7); Neutrophil % 82.6 % (47-70); POSITIVE COUNT YES; RBC Distribution Width CV 11.9 % (11.6-14.6); RBC Distribution Width SD 35.3 fl (35.1-43.9); Red Blood Count 5.92 M/mm3 (4.2-5.4); White Blood Count 11.2 K/mm3 (4.4-11.0)
[2021-08-04 19:13] LABS: Anion Gap 6 (5-15); BUN 24 mg/dL (7-18); BUN/Creat Ratio 21.2 RATIO (10-20); Calcium,Total 9.7 mg/dL (8.5-10.1); Chloride 89 mmol/L (98-107); Creatinine, Serum 1.13 mg/dL (0.55-1.02); Differential Indicated SCAN CRITERIA MET; EST Glomerular Filtration Rate 54 mL/min (>60); Est Glom Filt Rate - Afr Amer 66 mL/min (>60); Estimated Creatinine Clearance 58.56 ml/min; Glucose 716 mg/dL (74-106); Lactic Acid 2.5 mmol/L (0.4-1.9); Potassium 4.9 mmol/L (3.5-5.1); Sodium Level 124 mmol/L (136-145)
[2021-08-04 19:23] LABS: Differential Comment SCANNED; Erythrocyte Sedimentation Rate 43 mm/hr (0-30); Platelet Estimate ADEQUATE (ADEQ)
[2021-08-04] MEDS: Cefazolin 1 GM/50 ML BAG IV (20:11)
--- NOTE | 2021-08-04 20:13 | ED.RN ---
PT UNABLE TO PROVIDE INFORMATION ON HER MEDICATIONS.
[2021-08-04 20:14] VITALS: BP 122/83; PULSE 114; RESP 20; TEMP 36.6; O2SAT 97
[2021-08-04] MEDS: Insulin Lispro 100 UNIT/ML INSULN.PEN 15 UNIT SC (20:20)
[2021-08-04 20:22] VITALS: BP 122/83; PULSE 115; RESP 20; TEMP 37.2; O2SAT 97
--- NOTE | 2021-08-04 20:30 | CASEMGMT ---
CHAYITO BARKLEY Assessment: RN CM to room to meet with patient for initial transition planning/care coordination assessment. RN FILIPPO introduced self and role at [facility]. Patient voices understanding and consents to assessment at this time. Patient's mother present at bedside. Patient is alert and oriented, tearful, provides only short responses to questions. Care providers, pharmacy, and demographics verified/updated at this time. Admitting Dx: cellulitis and hyperglycemia PCP: Ama Neff Specialists: Denies Preferred Pharmacy: [facility] Insurance: [employer] Prescription Benefit: yes Living Will/HPOA: Patient denies having a living will or HPOA. LNOK: Mother Rebecca Dueñas Living Arrangements: Patient lives alone in two story apartment with one step to enter the home. Patient states independent with ADLs prior to hospitalization. Patient is currently unemployed. Smoking/ETOH: Current smoker (1/2 ppd), denies ETOH use Transportation: Patient drives self and denies transportation concerns. DME/HHC/SNF: Patient states she has a glucometer and all needed testing supplies at home. Denies other DME in the home. Previous HHC following prior foot surgery but unsure of agency name. Previous [facility] stay but unsure of facility name. Patient has no concerns with going home at time of discharge. CM to follow for any discharge planning/needs. Patient voices no concerns/needs at this time. Advised patient to ask for CM if any questions/concerns/needs arise. Voices understanding. Plan: home
[2021-08-04] MEDS: fentaNYL 100 MCG/2 ML Ampul 50 MCG IV (20:39)
--- NOTE | 2021-08-04 20:55 | RAD_ITS ---
STUDY: X-RAY - LEFT TIBIA AND FIBULA REASON FOR EXAM: Female, 50 years old. Injury/Pain TECHNIQUE: 2 view(s) of the tibia and fibula were obtained. COMPARISON: None. FINDINGS: Normal visualized tibia. Normal visualized fibula. The soft tissue structures are unremarkable. RAD/Tibia & Fibula 2 Views IMPRESSION: Intact tibia and fibula. Electronically Signed: Sarwat Higuera MD at 21:42 EST ,
--- NOTE | 2021-08-04 20:55 | RAD_ITS ---
STUDY: X-RAY - LEFT FEMUR REASON FOR STUDY: Female, 50 years old. Injury/Pain TECHNIQUE: 4 view(s) of the femur. COMPARISON: None. FINDINGS: Normal visualized femur. Normal visualized soft tissue structure. RAD/Femur Min 2 Views IMPRESSION: Normal x-ray examination of the femur. Electronically Signed: Raghav Parker DO at 21:42 EST ,
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
[2021-08-04 21:31] LABS: Bedside Glucose 427 mg/dL (74-106)
[2021-08-04 21:40] VITALS: PULSE 104
[2021-08-04 21:41] VITALS: BMI 25.7
[2021-08-04 21:55] VITALS: BP 116/79; PULSE 104; RESP 16; TEMP 36.6; O2SAT 98
[2021-08-04] MEDS: 0.9% Normal Saline 1,000 ML 100 ML IV (22:25)
[2021-08-04 22:42] LABS: Bedside Glucose 330 mg/dL (74-106)
[2021-08-04 22:45] LABS: Reflex Lactate? Y
[2021-08-04] MEDS: Mag Hydrox/Al Hydrox/Simeth 30 ML UDC 15 ML PO (23:01)
[2021-08-04 23:33] LABS: Lactic Acid 1.6 mmol/L (0.4-1.9)
[2021-08-05] MEDS: Morphine 4 MG/ML Syringe IV ×3 (02:31→09:00)
[2021-08-05] MEDS: Ondansetron 4 MG/2 ML Vial IV ×2 (02:31→11:04)
[2021-08-05 03:45] VITALS: BP 108/73; PULSE 99; RESP 16; TEMP 36.9; O2SAT 98
[2021-08-05 05:25] LABS: Absolute Lymphocyte Count 2.17 X10^3/uL (0.83-4.51); Absolute Neutrophil Count 6.8 X10^3/uL (2.0-7.7); Basophil# 0.07 X10^3/uL; Basophil% 0.7 % (0-1); Eosinophil# 0.29 X10^3/uL; Eosinophils% 2.9 % (0-5); Hematocrit 39.7 % (37-47); Hemoglobin 13.8 g/dL (12.0-15.0); Lymphocyte # 2.17 X10^3/ul (0.83-4.51); Lymphocyte % 21.7 % (19-41); Mean Corp Hgb Conc 34.8 g/dL (32-36); Mean Corpuscular Hgb 28.2 pg (27.0-32.0); Mean Platelet Vol. 10.2 fl (6.2-12.0); Monocyte# 0.64 X10^3/uL; Monocyte% 6.4 % (0-10); NRBC Flagged by Analyzer 0 % (0-5); Neutrophil # 6.78 X10^3/uL (2.7-7.7); Platelet Count 208 K/mm3 (150-450); RBC Distribution Width CV 11.9 % (11.6-14.6); RBC Distribution Width SD 34.7 fl (35.1-43.9)
[2021-08-05] MEDS: Cefazolin 1 GM/50 ML BAG IV (05:35)
[2021-08-05 05:51] LABS: Anion Gap 2 (5-15); BUN 18 mg/dL (7-18); BUN/Creat Ratio 33.3 RATIO (10-20); Calcium,Total 8.1 mg/dL (8.5-10.1); Chloride 102 mmol/L (98-107); Creatinine, Serum 0.54 mg/dL (0.55-1.02); EST Glomerular Filtration Rate 127 mL/min (>60); Est Glom Filt Rate - Afr Amer 153 mL/min (>60); Estimated Creatinine Clearance 122.55 ml/min; Glucose 299 mg/dL (74-106); Potassium 4.1 mmol/L (3.5-5.1); Sodium Level 132 mmol/L (136-145)
[2021-08-05] MEDS: 0.9% Normal Saline 1,000 ML 100 ML IV (07:44)
[2021-08-05 07:45] LABS: Bedside Glucose 303 mg/dL (74-106)
[2021-08-05] MEDS: Insulin Lispro 100 UNIT/ML INSULN.PEN SC ×4 (07:46→11:05)
[2021-08-05] MEDS: Enoxaparin 40 MG/0.4 ML Syringe SC (07:50)
[2021-08-05 09:21] VITALS: BP 126/88; PULSE 102; RESP 16; TEMP 36.8; O2SAT 99
--- NOTE | 2021-08-05 10:59 | PCM.DC ---
Discharge Instructions Diet Discharge Diet: Low fat / Low cholesterol, 2000 Calorie Control Diet and 2000 mg Sodium Diet Activity Discharge Activity: Return to Normal Activity Follow Up Care Test Results: Test results from this visit will be discussed in further detail at your follow-up appointment, if applicable. Discharge Plan Admission Admit Date/Time: 08/04/21 21:23 Primary Reason for Your Visit: Cellulitis Attending Provider: Shavon Mera Primary Care Provider: Ama Neff Discharge Orders/Prescriptions Prescriptions: New gabapentin 100 mg Capsule 100 mg PO BIDCM 30 Days Qty: 60 RF: 0 insulin lispro [Humalog KwikPen Insulin] 100 unit/mL Insulin Pen 5 unit subcut BREAKFAST 30 Days Qty: 1.5 RF: 0 insulin lispro [Humalog KwikPen Insulin] 100 unit/mL Insulin Pen 5 unit subcut DINNER 30 Days Qty: 1.5 RF: 0 insulin lispro [Humalog KwikPen Insulin] 100 unit/mL Insulin Pen 5 unit subcut LUNCH 30 Days Qty: 1.5 RF: 0 Lantus Solostar U-100 Insulin 100 unit/mL (3 mL) Insulin Pen 10 units subcut QHS 30 Days Qty: 3 RF: 0 Referrals / Follow Up: Ama Neff [Primary Care Provider] - 08/09/21 2:50 pm Disposition Disposition (needs filled in before D/C Order can be placed): Home, Self Care
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
[2021-08-05 11:21] LABS: Bedside Glucose 251 mg/dL (74-106)
[2021-08-05 11:42] VITALS: BP 111/81; PULSE 100; RESP 16; TEMP 36.6; O2SAT 98
[2021-08-05] MEDS: Gabapentin 100 MG Capsule PO (12:20)
--- NOTE | 2021-08-05 13:13 | PCM.DC.SUM ---
Providers Date of Admission: 08/04/21 Date of Discharge: 08/05/21 Primary Care Physician: Dr. Ama Neff Reason For Visit: CELLULITIS AND HYPERGLYCEMIA Diagnosis Discharge Diagnosis (1) Hyperglycemia: Status: Acute Code(s): R73.9 - Hyperglycemia, unspecified (2) Cellulitis: Status: Resolved Code(s): L03.90 - Cellulitis, unspecified Medications at Discharge Home Medications gabapentin 100 mg PO BIDCM 30 Days #60 cap 08/05/21 insulin glargine [Lantus Solostar U-100 Insulin] 10 units SUBCUT QHS 30 Days #3 ml 08/05/21 insulin lispro [Humalog KwikPen Insulin] 5 unit SUBCUT BREAKFAST 30 Days #1.5 ml 08/05/21 insulin lispro [Humalog KwikPen Insulin] 5 unit SUBCUT DINNER 30 Days #1.5 ml 08/05/21 insulin lispro [Humalog KwikPen Insulin] 5 unit SUBCUT LUNCH 30 Days #1.5 ml 08/05/21 Hospital Course Operations None Procedures None Summary of Care Provided Minutes Spent on Discharge: 25 Hospital Course: 50-year-old female presented with lower extremity redness and pain consistent with cellulitis. Patient has history of type II DM, CAD, CHF and has not been taking any medication for months. There are lots of social issues reportedly involving and children being put into foster care. Patient was started on IV cefazolin from the ED. she was also restarted on her medication. Upon reexam in the morning, there was no erythema. Antibiotics were discontinued. Patient complained of severe pain that was felt as burning in her left leg and stump region. She was started on gabapentin. Patient was given refill of her medications. She will follow-up with your primary care doctor within 1 to 2 weeks. Physical Exam Narrative Physical exam: General: Alert, Oriented x3, Cooperative, No apparent distress, Well developed HEENT: Atraumatic Oral: Moist Mucosa Neck: Supple Lungs: Clear to auscultation Cardiovascular: HS I+II, regular, no murmurs Abdomen: Bowel Sounds Present, Soft, Non Tender Extremities: Left lower leg TMA stump, no erythema, tenderness elicited Skin: No rashes, No breakdown Neurological: Grossly intact Psych/Mental Status: Appropriate Weight / BMI Weight Weight: 74.4 kg Body Mass Index (BMI) 25.7 ABG / Lab / Microbiology Data Result Diagrams: 08/05/21 05:07 08/05/21 05:07 Laboratory: Laboratory Results - last 24 hr 08/04/21 18:40: WBC 11.2 H, RBC 5.92 H, Hgb 16.7 H, Hct 48.2 H, MCV 81.4, MCH 28.2, MCHC 34.6, RDW Std Deviation 35.3, RDW Coeff of Spencer 11.9, Plt Count TNP, MPV 10.5, Immature Gran % (Auto) 0.400, Neut % (Auto) 82.6 H, Lymph % (Auto) 10.6 L, Marion % (Auto) 5.0, Eos % (Auto) 0.9, Baso % (Auto) 0.5, Absolute Neuts (auto) 9.2 H, Absolute Lymphs (auto) 1.18, Nucleated RBC % 0, Differential Comment SCANNED, Platelet Estimate ADEQUATE, ESR 43 H 08/04/21 18:40: Sodium 124 L, Potassium 4.9, Chloride 89 L, Carbon Dioxide 29.0, Anion Gap 6, BUN 24 H, Creatinine 1.13 H, Estim Creat Clear Calc 58.56, Est GFR (MDRD) Af Amer 66, Est GFR (MDRD) Non-Af 54 L, BUN/Creatinine Ratio 21.2 H, Glucose 716 H*, Calcium 9.7, C-React Prot Ext Range 14.10 H 08/04/21 18:40: Lactic Acid 2.5 H* 08/04/21 20:00: Acetone Level NEGATIVE 08/04/21 21:25: POC Glucose 427 H 08/04/21 22:24: POC Glucose 330 H 08/04/21 22:51: Lactic Acid 1.6 08/05/21 05:07: WBC 10.0, RBC 4.90, Hgb 13.8, Hct 39.7, MCV 81.0, MCH 28.2, MCHC 34.8, RDW Std Deviation 34.7 L, RDW Coeff of Spencer 11.9, Plt Count 208, MPV 10.2, Immature Gran % (Auto) 0.300, Neut % (Auto) 68.0, Lymph % (Auto) 21.7, Marion % (Auto) 6.4, Eos % (Auto) 2.9, Baso % (Auto) 0.7, Absolute Neuts (auto) 6.8, Absolute Lymphs (auto) 2.17, Nucleated RBC % 0 08/05/21 05:07: Sodium 132 L, Potassium 4.1, Chloride 102, Carbon Dioxide 28.0, Anion Gap 2 L, BUN 18, Creatinine 0.54 L, Estim Creat Clear Calc 122.55, Est GFR (MDRD) Af Amer 153, Est GFR (MDRD) Non-Af 127, BUN/Creatinine Ratio 33.3 H, Glucose 299 H, Calcium 8.1 L 08/05/21 07:37: POC Glucose 303 H 08/05/21 11:00: POC Glucose 251 H Radiography Diagnostic Testing: Radiology Impression Foot X-Ray 08/04/21 18:06 IMPRESSION: Status post transmetatarsal amputation of the foot. Electronically Signed: Raghav Parker DO at 19:07 EST , Ankle X-Ray 08/04/21 18:07 IMPRESSION: Soft tissue swelling laterally of the ankle. Electronically Signed: Raghav Parker DO at 19:08 EST , Femur X-Ray 08/04/21 20:55 IMPRESSION: Normal x-ray examination of the femur. Electronically Signed: Raghav Parker DO at 21:42 EST , Tibia/Fibula X-Ray 08/04/21 20:55 IMPRESSION: Intact tibia and fibula. Electronically Signed: Sarwat Higuera MD at 21:42 EST , D/C Instructions Discharge Diet: Low fat / Low cholesterol, 2000 Calorie Control Diet and 2000 mg Sodium Diet Meaningful Use Info Meaningful Use Diagnoses (Choose all that apply): None applicable Discharge Plan Admission Admit Date/Time: 08/04/21 21:23 Primary Reason for Your Visit: Cellulitis Attending Provider: Shavon Mera Primary Care Provider: Ama Neff Discharge Orders/Prescriptions Prescriptions: New gabapentin 100 mg Capsule 100 mg PO BIDCM 30 Days Qty: 60 RF: 0 insulin lispro [Humalog KwikPen Insulin] 100 unit/mL Insulin Pen 5 unit subcut BREAKFAST 30 Days Qty: 1.5 RF: 0 insulin lispro [Humalog KwikPen Insulin] 100 unit/mL Insulin Pen 5 unit subcut DINNER 30 Days Qty: 1.5 RF: 0 insulin lispro [Humalog KwikPen Insulin] 100 unit/mL Insulin Pen 5 unit subcut LUNCH 30 Days Qty: 1.5 RF: 0 Lantus Solostar U-100 Insulin 100 unit/mL (3 mL) Insulin Pen 10 units subcut QHS 30 Days Qty: 3 RF: 0 Referrals / Follow Up: Ama Neff [Primary Care Provider] - 08/09/21 2:50 pm Disposition Disposition (needs filled in before D/C Order can be placed): Home, Self Care Charges/Coding Visit Charges Inpatient E&M: 81996 Disch Hosp
[2021-08-05 14:18] LABS: Hemoglobin A1c > 14.0 % (3.8-5.6)
== END 2021-08-05 15:43 | disposition home or self-care (01) | DRG 420 ==
LOC: ED 18:22 → MS3 21:31
PROVIDERS: Admitting Provider Family Medicine; Emergency Provider Physician Assistant; Visit Provider Internal Medicine
DX: E11.628 Type 2 diabetes mellitus with other skin complications (principal); L03.116 Cellulitis of left lower limb; A49.1 Streptococcal infection, unspecified site; I11.0 Hypertensive heart disease with heart failure; E11.65 Type 2 diabetes mellitus with hyperglycemia; E78.5 Hyperlipidemia, unspecified; I25.10 Atherosclerotic heart disease of native coronary artery without angina pectoris; I50.9 Heart failure, unspecified
CPT/HCPCS: 36415; 73552; 73590; 73610; 73630; 80048; 82009; 82962; 83036; 83605; 85025; 85652; 86140; 87040; 99285; J7030; 90686; A4216; J2405

== ENCOUNTER 2021-08-08 17:45 | Emergency (ER) | payer MEDICAID, SELFPAY ==
[2021-08-08 17:45] VITALS: BP 139/88; PULSE 86; RESP 15; TEMP 36.3; O2SAT 97; BMI 28.1
--- NOTE | 2021-08-08 18:10 | US_ITS ---
EXAM: US DUPLEX LEFT LOWER EXTREMITY VEINS CLINICAL INDICATION: LT LEG/ FOOT PAIN- SEVERE TECHNIQUE: Real-time duplex ultrasound scan of the left lower extremity veins integrating B-mode two-dimensional vascular structure, Doppler spectral analysis, color flow Doppler imaging and compression. This report was created using [employer] report generation technology. COMPARISON: None. FINDINGS: DEEP VEINS: Unremarkable. No DVT in the visualized common femoral, femoral, proximal deep femoral or popliteal veins. The veins demonstrate normal color flow, are normally compressible, with normal phasic flow and/or augmentation response. SUPERFICIAL VEINS: Unremarkable. No thrombus in the visualized great saphenous vein. SOFT TISSUES: No acute findings. No popliteal cyst. US/Venous Duplex Imag/Limited/Uni IMPRESSION: No DVT. Electronically Signed: Conor Nuno MD at 18:57 EST ,
--- NOTE | 2021-08-08 18:12 | EDS_ITS ---
HPI History of Present Illness Chief Complaint: Lower Extremity Injury Informant: patient Narrative Narrative: Patient present persistent foot and leg pain left side for the past 2 weeks. History of toe amputations 2 years ago from osteomyelitis. She states she is admitted overnight this past in the Sunday for cellulitis. She states she was not sent home on antibiotics. She was sent home on gabapentin 100 mg twice a day for neuropathy concerns. No fevers. States pain up her whole leg. She is a diabetic on insulin. Denies chest pains or shortness of breath. X-rays were obtained however denies any ultrasounds. Records were reviewed, admitted on the third 4 days ago noting there was erythema up to her mid leg. She had elevated inflammatory markers. She was started on antibiotics in the ED. From discharge summary the following day eryt chilo resolved therefore antibiotics were stopped and she was treated for neuropathy and lower suspicion for infection. There is no ultrasound of the leg obtained. [facility] Medical History CAD (coronary artery disease), [place] coronary artery CHF (congestive heart failure) Diabetes mellitus, type 2 GERD (gastroesophageal reflux disease) HTN (hypertension) Hyperlipidemia Toe amputee Home Medications gabapentin 100 mg PO BIDCM 30 Days #60 cap 08/05/21 [Rx Last Taken Unknown] insulin glargine [Lantus Solostar U-100 Insulin] 10 units SUBCUT QHS 30 Days #3 ml 08/05/21 [Rx Last Taken Unknown] insulin lispro [Humalog KwikPen Insulin] 5 unit SUBCUT BREAKFAST 30 Days #1.5 ml 08/05/21 [Rx Last Taken Unknown] insulin lispro [Humalog KwikPen Insulin] 5 unit SUBCUT DINNER 30 Days #1.5 ml 08/05/21 [Rx Last Taken Unknown] insulin lispro [Humalog KwikPen Insulin] 5 unit SUBCUT LUNCH 30 Days #1.5 ml 08/05/21 [Rx Last Taken Unknown] oxycodone-acetaminophen [Percocet] 1 tab PO Q6H PRN 3 Days #12 tab 08/08/21 [Rx Last Taken Unknown] Allergy/AdvReac Type Severity Reaction Status Date / Time latex Allergy Hives Verified 08/04/21 17:59 Family History Other Diabetes Heart disease Surgical History History of cholecystectomy Social History household members: spouse and children housing: house Smoking Status: Current every day smoker tobacco type: cigarettes alcohol intake: never what type of physical activity do you participate in: none do you feel safe at home: Yes ROS ROS ED Constitutional Constitutional ED: Denies chills, fever(s) or sweats Eyes Eyes: Denies change in vision ENT ENT ED: Denies dysphagia or sore throat Cardiovascular Cardiovascular: Denies chest pain, leg edema, palpitations or racing heartbeat Respiratory/Chest Respiratory/Chest: Denies cough, dyspnea or dyspnea on exertion Gastrointestinal Gastrointestinal: Denies abdominal pain, diarrhea, nausea or vomiting Genitourinary Genitourinary ED: Denies dysuria, hematuria or urinary frequency Musculoskeletal Musculoskeletal: Reports other Details: Left leg pain ; Denies back pain, extremity pain or neck pain Integumentary Denies rash or wounds Neurologic Neurologic: Denies headache(s), paresthesias or weakness EXAM Physical Exam Const Vital Signs: 08/08/21 17:45 Temperature 97.4 F L Temperature Source Temporal Pulse Rate 86 Respiratory Rate 15 Blood Pressure 139/88 H Blood Pressure Mean 105 Pulse Ox 97 Oxygen Delivery Method Room Air Tearful on exam. Positive well nourished and well developed General Appearance ED: well developed HEENT Reports moist mucous membranes normocephalic and atraumatic Eyes PERRL, EOMs intact bilaterally and conjunctivae normal General Eye ED: Yes normal appearance of both eyes Neck no lymphadenopathy and supple General: Negative for tenderness Chest Wall Chest: Negative for tenderness Resp normal respiratory effort and normal air movement Effort and Inspection: symmetric chest movement; Negative for respiratory distress Cardio regular rate, regular rhythm and no murmurs Peripheral Pulses: pulses 2+ throughout GI normal to inspection, nondistended, normoactive bowel sounds and non-tender Palpation: Negative for guarding or rebound tenderness present Back/Spine no CVA tenderness and no thoracic nor lumbar tenderness Extremity Extremity Narrative: Left lower extremity: Distal toe amputations. Mild swelling the foot however there is no erythema. Tender palpation in the calf and medial thigh. Pulses were intact distally. General Extremety ED: Yes edema; Negative for tenderness General Extremity: edema Neuro oriented x3 and no sensory deficits noted Sensorium / Orientation: awake and alert Skin no rashes or lesions noted and no wounds MDM MDM MDM Narrative Medical decision making narrative: Currently no erythema however exam has pain in the calf and thigh. Will obtain ultrasound. With her discomfort she is requesting an injection, IM fentanyl will be given. Pulses were intact. Ultrasounds were negative. Reevaluation patient more comfortable. Discussed findings with the patient, likely increasing neuropathy pain. Discussed increasing her gabapentin to 3 times a day. [facility] report last prescription was February 2021. Prescription Percocet for symptom control. Patient states she is able to ambulate and get around at home currently. She does not need rehab. All questions were answered. Radiography Diagnostic Testing: Clinical Impression(s) from Imaging Studies Venous Duplex 08/08/21 18:10 IMPRESSION: No DVT. Electronically Signed: Conor Nuno MD at 18:57 EST , Discharge Plan Triage Chief Complaint: Lower Extremity Injury ED Provider: Zack Card Dx/Rx/DC Orders Clinical Impression: Left leg pain, History of diabetes mellitus Instructions: ED Pain, Acute, Uncertain Cause Prescriptions: New oxycodone-acetaminophen [Percocet] 5-325 mg tablet 1 tab PO Q6H PRN (Reason: pain) 3 Days Qty: 12 RF: 0 No Action gabapentin 100 mg Capsule 100 mg PO BIDCM 30 Days Qty: 60 RF: 0 insulin lispro [Humalog KwikPen Insulin] 100 unit/mL Insulin Pen 5 unit subcut BREAKFAST 30 Days Qty: 1.5 RF: 0 insulin lispro [Humalog KwikPen Insulin] 100 unit/mL Insulin Pen 5 unit subcut DINNER 30 Days Qty: 1.5 RF: 0 insulin lispro [Humalog KwikPen Insulin] 100 unit/mL Insulin Pen 5 unit subcut LUNCH 30 Days Qty: 1.5 RF: 0 Lantus Solostar U-100 Insulin 100 unit/mL (3 mL) Insulin Pen 10 units subcut QHS 30 Days Qty: 3 RF: 0 Primary Care Provider: Ama Neff Referrals: Ama Neff [Primary Care Provider] - Activity Restrictions/Additional Instructions: Ultrasound left leg today negative for DVT. Keep your appointment tomorrow. Increase her gabapentin to 3 times a day. Percocet prescription sent to your pharmacy. Disposition Disposition: Home, Self Care
[2021-08-08] MEDS: fentaNYL 100 MCG/2 ML Ampul 50 MCG IM (18:20)
[2021-08-08 19:04] VITALS: O2SAT 98
== END 2021-08-08 19:06 | disposition home or self-care (01) ==
PROVIDERS: Emergency Provider Emergency Medicine; Visit Provider Emergency Medicine
DX: M79.605 Pain in left leg (principal); I11.0 Hypertensive heart disease with heart failure; I50.9 Heart failure, unspecified; E11.40 Type 2 diabetes mellitus with diabetic neuropathy, unspecified; Z79.4 Long term (current) use of insulin; I25.10 Atherosclerotic heart disease of native coronary artery without angina pectoris; E78.5 Hyperlipidemia, unspecified; M79.659 Pain in unspecified thigh; K21.9 Gastro-esophageal reflux disease without esophagitis; F17.210 Nicotine dependence, cigarettes, uncomplicated
CPT/HCPCS: 93971; 99282

== ENCOUNTER 2021-08-09 15:54 | Emergency (ER) | payer MEDICAID, SELFPAY ==
[2021-08-09 15:54] VITALS: BP 152/94; PULSE 116; RESP 16; TEMP 36.3; O2SAT 100; BMI 25.0
--- NOTE | 2021-08-09 16:17 | EDS_ITS ---
HPI History of Present Illness Chief Complaint: Lower Extremity Injury Informant: patient and family Onset/Context/Timing Quality: Left foot pain and swelling Location: Predominately foot and distal left leg Current Severity: Mild Maximum Severity: Severe Worsened by: Touch Relieved by: Nothing Associated Symptoms Associated Symptoms: Nothing Narrative Narrative: Patient is a 50-year-old woman with diabetes, diabetic neuropathy who presents with left foot pain and distal left leg pain with swelling. It started several weeks ago. This is her third visit this month. Yesterday venous duplex studies were obtained which were negative. Physician commented that pulses were palpable. Patient denies any injury. Patient denies any discoloration. Patient denies history of VTE. Patient is presently on 100 mg of gabapentin twice daily. This was started 1 week ago. The dose was not increased. She was prescribed Percocet yesterday. She reports this does not help the pain. She describes the pain as a burning sharp like pain. Wearing a sock or shoe makes it worse. Prior similar symptoms: Yes Recent Illness/Hospitalization: Yes PFSH [facility] Medical History CAD (coronary artery disease), [place] coronary artery CHF (congestive heart failure) Diabetes mellitus, type 2 GERD (gastroesophageal reflux disease) HTN (hypertension) Hyperlipidemia Toe amputee Home Medications gabapentin 100 mg PO BIDCM 30 Days #60 cap 08/05/21 [Rx Last Taken Unknown] insulin glargine [Lantus Solostar U-100 Insulin] 10 units SUBCUT QHS 30 Days #3 ml 08/05/21 [Rx Last Taken Unknown] insulin lispro [Humalog KwikPen Insulin] 5 unit SUBCUT BREAKFAST 30 Days #1.5 ml 08/05/21 [Rx Last Taken Unknown] insulin lispro [Humalog KwikPen Insulin] 5 unit SUBCUT DINNER 30 Days #1.5 ml 08/05/21 [Rx Last Taken Unknown] insulin lispro [Humalog KwikPen Insulin] 5 unit SUBCUT LUNCH 30 Days #1.5 ml 08/05/21 [Rx Last Taken Unknown] oxycodone-acetaminophen [Percocet] 1 tab PO Q6H PRN 3 Days #12 tab 08/08/21 [Rx Last Taken Unknown] Allergy/AdvReac Type Severity Reaction Status Date / Time latex Allergy Hives Verified 08/04/21 17:59 Family History Other Diabetes Heart disease Surgical History History of cholecystectomy Social History household members: spouse and children housing: house Smoking Status: Current every day smoker tobacco type: cigarettes alcohol intake: never what type of physical activity do you participate in: none do you feel safe at home: Yes ROS ROS ED Constitutional Constitutional ED: Denies chills, fever(s), subjective, sweats or weight loss Eyes Eyes: Denies blurry vision, change in vision or diplopia Musculoskeletal Musculoskeletal: Denies arthralgias, back pain, myalgias or neck pain Integumentary Denies abscess, Abrasions or rash Neurologic Neurologic: Reports paresthesias; Denies weakness Allergic/Immunologic Allergic/Immunologic ED: Denies mouth swelling, tongue swelling or urticaria EXAM Physical Exam Const Vital Signs: 08/09/21 15:54 Temperature 97.4 F L Temperature Source Temporal Pulse Rate 116 H Respiratory Rate 16 Blood Pressure 152/94 H Blood Pressure Mean 113 Pulse Ox 100 Oxygen Delivery Method Room Air Positive well nourished and well developed General Appearance ED: well developed and other When I entered the room the patient began to cry and states she cannot take it. ; Negative for cyanotic, diaphoretic, NAD or pallor HEENT Reports moist mucous membranes Negative for trauma or tenderness Eyes PERRL and EOMs intact bilaterally General Eye ED: Negative for pale conjunctiva Resp normal respiratory effort and clear to auscultation bilaterally Cardio regular rate, regular rhythm, S1 normal heart sound, S2 normal heart sound and no murmurs Extremity Negative for normal to inspection Extremity Narrative: Patient had amputation of the toes on the left foot. The incision site is well-healed. There is no evidence of breakdown. There is no temperature difference between the right and left foot. Unable to initially palpate the PT or DP pulse. With increased pressure the DP was palpable and there was biphasic flow PT. There is pedal edema on the left side. There is no erythema, warmth, induration or lymphangitis. There is no popliteal lymphadenopathy. Patient complains of exquisite pain with light touch. Neuro oriented x3 and CN's II-XII intact bilaterally Sensorium / Orientation: alert Motor Exam: strength 5/5 throughout Psych Mood & Affect: depressed and tearful Skin no rashes or lesions noted and no wounds General Skin Exam: Negative for jaundice or pallor MDM MDM MDM Narrative Medical decision making narrative: Patient was informed this is due to her diabetic neuropathy. Treatment is follow-up with pain management proper dose of gabapentin. She was informed since the pulses palpable and flow was noted at the minimum that no arterial study is required. She was informed that she will need to follow-up with her primary care provider for referral to pain management and will need to increase her gabapentin dose. Discharge Plan Triage Chief Complaint: Lower Extremity Injury ED Provider: Derek Paniagua Dx/Rx/DC Orders Clinical Impression: Diabetic neuropathy, painful Instructions: ED Neuropathy, Peripheral, Diabetic Neuropathy Prescriptions: No Action gabapentin 100 mg Capsule 100 mg PO BIDCM 30 Days Qty: 60 RF: 0 insulin lispro [Humalog KwikPen Insulin] 100 unit/mL Insulin Pen 5 unit subcut BREAKFAST 30 Days Qty: 1.5 RF: 0 insulin lispro [Humalog KwikPen Insulin] 100 unit/mL Insulin Pen 5 unit subcut DINNER 30 Days Qty: 1.5 RF: 0 insulin lispro [Humalog KwikPen Insulin] 100 unit/mL Insulin Pen 5 unit subcut LUNCH 30 Days Qty: 1.5 RF: 0 Lantus Solostar U-100 Insulin 100 unit/mL (3 mL) Insulin Pen 10 units subcut QHS 30 Days Qty: 3 RF: 0 oxycodone-acetaminophen [Percocet] 5-325 mg tablet 1 tab PO Q6H PRN (Reason: pain) 3 Days Qty: 12 RF: 0 Primary Care Provider: Ama Neff Referrals: Ama Neff [Primary Care Provider] - 1 Week Activity Restrictions/Additional Instructions: You need to increase your gabapentin dose to 100 mg 3 times a day for 2 days then to 100 mg capsules 3 times a day for 3 days then three 100 mg capsules 3 t imes a day. If this is still giving you pain you will need to have your dose increased and this should be managed by your primary care provider and you will need a new prescription for gabapentin. This is a chronic pain issue and your primary care provider will need to make a referral to pain management to help control the pain if the gabapentin is not effective after 1 to 3 weeks. Disposition Disposition: Home, Self Care
[2021-08-09 16:24] VITALS: BP 152/94; PULSE 116; RESP 16; TEMP 36.3; O2SAT 100
== END 2021-08-09 16:35 | disposition home or self-care (01) ==
PROVIDERS: Emergency Provider Emergency Medicine; Visit Provider Emergency Medicine
DX: E11.40 Type 2 diabetes mellitus with diabetic neuropathy, unspecified (principal); I11.0 Hypertensive heart disease with heart failure; I50.9 Heart failure, unspecified; M79.672 Pain in left foot; E78.5 Hyperlipidemia, unspecified; I25.10 Atherosclerotic heart disease of native coronary artery without angina pectoris; K21.9 Gastro-esophageal reflux disease without esophagitis
CPT/HCPCS: 99282

== ENCOUNTER 2021-08-26 11:08 | Emergency (ER) | payer MEDICAID, SELFPAY ==
[2021-08-26] VITALS (7 sets, daily range): BP systolic 94–133; BP diastolic 71–88; PULSE 107–155; RESP 12–21; TEMP 35.9–36.6; O2SAT 97–100; BMI 23.8
[2021-08-26 12:11] LABS: Absolute Lymphocyte Count 1.72 X10^3/uL (0.83-4.51); Basophil# 0.08 X10^3/uL; Basophil% 0.9 % (0-1); Eosinophil# 0.13 X10^3/uL; Eosinophils% 1.4 % (0-5); Hematocrit 51.2 % (37-47); Hemoglobin 17.6 g/dL (12.0-15.0); Lymphocyte # 1.72 X10^3/ul (0.83-4.51); Lymphocyte % 18.3 % (19-41); Mean Corp Hgb Conc 34.4 g/dL (32-36); Mean Corpuscular Hgb 28.2 pg (27.0-32.0); Mean Corpuscular Volume 81.9 fL (81-99); Mean Platelet Vol. 9.5 fl (6.2-12.0); Monocyte# 0.48 X10^3/uL; Monocyte% 5.1 % (0-10); NRBC Flagged by Analyzer 0 % (0-5); Neutrophil # 6.96 X10^3/uL (2.7-7.7); Neutrophil % 73.9 % (47-70); Platelet Count 289 K/mm3 (150-450); RBC Distribution Width CV 12.4 % (11.6-14.6); RBC Distribution Width SD 37.1 fl (35.1-43.9); Red Blood Count 6.25 M/mm3 (4.2-5.4); White Blood Count 9.4 K/mm3 (4.4-11.0)
[2021-08-26 12:24] LABS: Anion Gap 7 (5-15); BUN 9 mg/dL (7-18); Calcium,Total 9.2 mg/dL (8.5-10.1); Chloride 95 mmol/L (98-107); EST Glomerular Filtration Rate 63 mL/min (>60); Est Glom Filt Rate - Afr Amer 76 mL/min (>60); Estimated Creatinine Clearance 65.45 ml/min; Glucose 538 mg/dL (74-106); Potassium 4.2 mmol/L (3.5-5.1); Sodium Level 129 mmol/L (136-145)
[2021-08-26 12:42] LABS: Internal QC Validated? YES +Cl - CLEAR BKGD
--- NOTE | 2021-08-26 12:42 | EKG12_ITS ---
Test Reason : PALPITATIONS Blood Pressure : / mmHG Vent. Rate : 133 BPM Atrial Rate : 133 BPM P-R Int : 138 ms QRS Dur : 100 ms QT Int : 376 ms P-R-T Axes : 058 -56 074 degrees QTc Int : 559 ms Sinus tachycardia Left axis deviation Septal infarct , age undetermined Abnormal ECG Confirmed by TIP HERNANDEZ, LORETA ([id number]), graphics editor FELICIA HOLCOMB ([id number]) on 08/30/2021 11:00:20 AM Referred By: GARCIA Confirmed By:LORETA WHELAN MD
[2021-08-26 12:47] LABS: Pregnancy, Serum, hCG Quali. POSITIVE Negative
--- NOTE | 2021-08-26 12:49 | ED.VIS.GI ---
HPI HPI - GI History of Present Illness Chief Complaint: Nausea/Vomiting Narrative Narrative: 51-year-old female presenting with nausea, vomiting for the last 2 days. She states she does not know why she cannot hold anything down. She states she will try to eat a can of soup and about 30 minutes later she will start vomiting. She does states she has abdominal pain in the right lower quadrant. She has not had a fever but states she is had chills and hot flashes. She states he does have body aches and states they are all over. She does not have a cough or shortness of breath. Denies urinary symptoms other than she has decreased urine output. No vaginal complaints. [facility] Medical History CAD (coronary artery disease), [place] coronary artery CHF (congestive heart failure) Diabetes mellitus, type 2 GERD (gastroesophageal reflux disease) HTN (hypertension) Hyperlipidemia Toe amputee Home Medications gabapentin 100 mg PO BIDCM 30 Days #60 cap 08/05/21 [Rx Last Taken Unknown] insulin glargine [Lantus Solostar U-100 Insulin] 10 units SUBCUT QHS 30 Days #3 ml 08/05/21 [Rx Last Taken Unknown] insulin lispro [Humalog KwikPen Insulin] 5 unit SUBCUT BREAKFAST 30 Days #1.5 ml 08/05/21 [Rx Last Taken Unknown] insulin lispro [Humalog KwikPen Insulin] 5 unit SUBCUT DINNER 30 Days #1.5 ml 08/05/21 [Rx Last Taken Unknown] insulin lispro [Humalog KwikPen Insulin] 5 unit SUBCUT LUNCH 30 Days #1.5 ml 08/05/21 [Rx Last Taken Unknown] oxycodone-acetaminophen [Percocet] 1 tab PO Q6H PRN 3 Days #12 tab 08/08/21 [Rx Last Taken Unknown] ondansetron 4 mg PO Q8H PRN #10 tab 08/26/21 [Rx Last Taken Unknown] Allergy/AdvReac Type Severity Reaction Status Date / Time latex Allergy Hives Verified 08/26/21 11:09 Family History Other Diabetes Heart disease Surgical History History of cholecystectomy Social History household members: spouse and children housing: house Smoking Status: Current every day smoker tobacco type: cigarettes alcohol intake: never what type of physical activity do you participate in: none do you feel safe at home: Yes ROS ROS ED Constitutional Constitutional ED: Denies chills or fever(s) ENT ENT ED: Denies rhinorrhea or sore throat Cardiovascular Cardiovascular: Denies chest pain or palpitations Respiratory/Chest Respiratory/Chest: Denies cough or dyspnea Gastrointestinal Gastrointestinal: Reports abdominal pain, nausea and vomiting Musculoskeletal Musculoskeletal: Reports myalgias; Denies back pain or neck pain Integumentary Denies abscess or rash Neurologic Neurologic: Reports headache(s); Denies paresthesias or weakness Psychiatric Psychiatric: Denies anxiety or depression EXAM Physical Exam Const Vital Signs: 08/26/21 11:09 08/26/21 13:22 08/26/21 14:00 Temperature 96.7 F L 98 F Temperature Source Temporal Temporal Pulse Rate 155 H 112 H 109 H Respiratory Rate 17 12 21 H Blood Pressure 94/71 112/84 H 117/87 H Blood Pressure Mean 78 93 97 Pulse Ox 100 100 98 Oxygen Delivery Method Room Air Room Air 08/26/21 15:00 08/26/21 16:40 Temperature Temperature Source Pulse Rate 110 H 107 H Respiratory Rate 19 H 20 H Blood Pressure 133/88 H 129/74 H Blood Pressure Mean 103 92 Pulse Ox 98 97 Oxygen Delivery Method Room Air Room Air Positive well nourished General Appearance ED: NAD; Negative for pallor HEENT Reports moist mucous membranes normocephalic and atraumatic Eyes PERRL and EOMs intact bilaterally Resp normal respiratory effort and clear to auscultation bilaterally Cardio regular rhythm Rate: tachycardic GI Palpation: tender RLQ Back/Spine no CVA tenderness Neuro Sensorium / Orientation: alert, oriented to person, oriented to place and oriented to time Psych mental status grossly normal Skin General Skin Exam: Negative for jaundice or pallor Rashes: no rashes MDM MDM MDM Narrative Medical decision making narrative: Patient seen and evaluated when she was brought back from the waiting room. Blood work was drawn while she was out there. The patient's heart rate noted to be as high as 150. Currently it is about 130. EKG was obtained and on my interpretation is a sinus tachycardia with a ventricular rate of 133 bpm. Chest x-ray my interpretation shows no acute cardiopulmonary process and radiologist does agree. Patient CBC shows no leukocytosis. Hemoglobin is 17.6 and I believe this is hemoconcentrated. This is higher than her previous hemoglobin. Her BMP shows that her BUN is 9 and her creatinine is 1.00 glucose is 538 without an anion gap. Serum test was positive. Serum quant was 6. After discussion with the patient she states her last menstrual period was when she was 43 and she just recently turned 51. She had sex about 4 months ago. This was the last time. She states she is status post tubal ligation distantly. She has not had any vaginal complaints. Obstetric ultrasound was ordered and does not show any torsion or intrauterine/ectopic . There is good blood flow. There is a 1 cm uterine fibroid. Urinalysis shows small amount of occult blood but does not look to be infected. Lactic acid returned within normal limits. Coagulation studies normal. Patient does not appear to be septic. She has a negative obstetric ultrasound. She still having right lower quadrant pain. I did speak with Dr. Henning who is on-call for obstetrics and she stated that the cutoff for a positive test would be 5. She felt that the patient was simply hemoconcentrated and likely this is why she has a positive test. She recommended retesting when she is hydrated. At this point I ordered a CT of the abdomen pelvis with IV contrast. She is getting a second liter of IV fluids. She was given this fentanyl for pain to her low blood pressure earlier. Her heart rate is improved to 110. CT of the abdomen pelvis is negative for acute intra-abdominal process. Patient's repeat blood sugar is 371. Patient was given 15 units of subcu insulin. Blood sugar will be rechecked. Repeat hCG will be rechecked after IV fluids finished. I feel the patient is safe to be discharged home once her blood sugar is under control since ultimately she has a negative work-up. Patient was signed out to incoming physician for follow-up on blood sugar and hCG. Impression: 1. Nausea/vomiting 2. Dehydration 3. Hyperglycemia 4. Positive hCG 5. Abdominal pain Lab Data Attestation: I reviewed the patient's lab results. Labs: Laboratory Results - last 24 hr 08/26/21 08/26/21 08/26/21 12:00 12:00 12:00 WBC 9.4 RBC 6.25 H Hgb 17.6 H Hct 51.2 H MCV 81.9 MCH 28.2 MCHC 34.4 RDW Std Deviation 37.1 RDW Coeff of Spencer 12.4 Plt Count 289 MPV 9.5 Immature Gran % (Auto) 0.400 Neut % (Auto) 73.9 H Lymph % (Auto) 18.3 L Tripp % (Auto) 5.1 Eos % (Auto) 1.4 Baso % (Auto) 0.9 Absolute Neuts (auto) 7.0 Absolute Lymphs (auto) 1.72 Nucleated RBC % 0 PT INR APTT Sodium 129 L Potassium 4.2 Chloride 95 L Carbon Dioxide 27.0 Anion Gap 7 BUN 9 Creatinine 1.00 Estim Creat Clear Calc 65.45 Est GFR (MDRD) Af Amer 76 Est GFR (MDRD) Non-Af 63 BUN/Creatinine Ratio 9.0 L Glucose 538 H* Lactic Acid Calcium 9.2 Total Bilirubin Direct Bilirubin AST ALT Alkaline Phosphatase Troponin I High Sens Total Protein Albumin Globulin Lipase HCG, Quant Serum , Qual POSITIVE H Urine Color Urine Clarity Urine pH Ur Specific [place] Urine Protein Urine Glucose (UA) Urine Ketones Urine Occult Blood Urine Nitrite Urine Bilirubin Urine Urobilinogen Ur Leukocyte Esterase Urine RBC Urine WBC Ur Squamous Epith Cells Urine Bacteria Urine Mucus POC Glucose 08/26/21 08/26/21 08/26/21 12:00 12:00 12:54 WBC RBC Hgb Hct MCV MCH MCHC RDW Std Deviation RDW Coeff of [place] Plt Count MPV Immature Gran % (Auto) Neut % (Auto) Lymph % (Auto) Tripp % (Auto) Eos % (Auto) Baso % (Auto) Absolute Neuts (auto) Absolute Lymphs (auto) Nucleated RBC % PT 12.4 INR 1.0 APTT 25.0 Sodium Potassium Chloride Carbon Dioxide Anion Gap BUN Creatinine Estim Creat Clear Calc Est GFR (MDRD) Af Amer Est GFR (MDRD) Non-Af BUN/Creatinine Ratio Glucose Lactic Acid Calcium Total Bilirubin 1.40 H Direct Bilirubin 0.22 AST 28 ALT 28 Alkaline Phosphatase 182 H Troponin I High Sens 6 Total Protein 7.8 Albumin 3.3 Globulin 4.5 H Lipase 115 HCG, Quant 6 H Serum , Qual Urine Color Urine Clarity Urine pH Ur Specific [place] Urine Protein Urine Glucose (UA) Urine Ketones Urine Occult Blood Urine Nitrite Urine Bilirubin Urine Urobilinogen Ur Leukocyte Esterase Urine RBC Urine WBC Ur Squamous Epith Cells Urine Bacteria Urine Mucus POC Glucose 08/26/21 08/26/21 08/26/21 12:54 14:35 16:43 WBC RBC Hgb Hct MCV MCH MCHC RDW Std Deviation RDW Coeff of [place] Plt Count MPV Immature Gran % (Auto) Neut % (Auto) Lymph % (Auto) Tripp % (Auto) Eos % (Auto) Baso % (Auto) Absolute Neuts (auto) Absolute Lymphs (auto) Nucleated RBC % PT INR APTT Sodium Potassium Chloride Carbon Dioxide Anion Gap BUN Creatinine Estim Creat Clear Calc Est GFR (MDRD) Af Amer Est GFR (MDRD) Non-Af BUN/Creatinine Ratio Glucose Lactic Acid 1.9 Calcium Total Bilirubin Direct Bilirubin AST ALT Alkaline Phosphatase Troponin I High Sens Total Protein Albumin Globulin Lipase HCG, Quant Serum , Qual Urine Color Yellow Urine Clarity Sl. Cloudy Urine pH 6.0 Ur Specific [place] 1.020 Urine Protein 30 H Urine Glucose (UA) 1000 H Urine Ketones 5 H Urine Occult Blood 10 H Urine Nitrite Negative Urine Bilirubin Negative Urine Urobilinogen Normal Ur Leukocyte Esterase 25 H Urine RBC 0 SEEN Urine WBC 0 SEEN Ur Squamous Epith Cells 0-5 SEEN Urine Bacteria 1+ Urine Mucus 0 SEEN POC Glucose 371 H Radiography Diagnostic Testing: Clinical Impression(s) from Imaging Studies Obstetrics Ultrasound 08/26/21 12:53 IMPRESSION: 1 cm fibroid in the fundus of the uterus. Electronically Signed: Garrett Barrera MD at 15:05 EDT , Chest X-Ray 08/26/21 13:25 IMPRESSION: Normal x-ray examination of the chest. Electronically Signed: Ryan Tejeda MD at 13:43 EDT , Abdomen/Pelvis CT 08/26/21 16:48 IMPRESSION: Normal enhanced CT of the abdomen and pelvis. Electronically Signed: Garrett Barrera MD at 17:08 EDT , Discharge Plan Triage Chief Complaint: Nausea/Vomiting ED Provider: Curry Ivory Dx/Rx/DC Orders Instructions: ED Diabetic Hyperglycemia, ED Vomiting (Adult), ED Abdominal Pain Unkn Cause Male... Prescriptions: New ondansetron 4 mg tablet,disintegrating 4 mg PO Q8H PRN (Reason: nausea and vomiting) Qty: 10 RF: 0 No Action gabapentin 100 mg Capsule 100 mg PO BIDCM 30 Days Qty: 60 RF: 0 insulin lispro [Humalog KwikPen Insulin] 100 unit/mL Insulin Pen 5 unit subcut BREAKFAST 30 Days Qty: 1.5 RF: 0 insulin lispro [Humalog KwikPen Insulin] 100 unit/mL Insulin Pen 5 unit subcut DINNER 30 Days Qty: 1.5 RF: 0 insulin lispro [Humalog KwikPen Insulin] 100 unit/mL Insulin Pen 5 unit subcut LUNCH 30 Days Qty: 1.5 RF: 0 Lantus Solostar U-100 Insulin 100 unit/mL (3 mL) Insulin Pen 10 units subcut QHS 30 Days Qty: 3 RF: 0 oxycodone-acetaminophen [Percocet] 5-325 mg tablet 1 tab PO Q6H PRN (Reason: pain) 3 Days Qty: 12 RF: 0 Primary Care Provider: Ama Neff Referrals: Ama Neff [Primary Care Provider] -
--- NOTE | 2021-08-26 12:53 | US_ITS ---
STUDY: ULTRASOUND OF THE FEMALE PELVIS - COMPLETE REASON FOR EXAM: Female, 51 years old. pelvic pain -- hcg-6 -- sexually active x 4 mo. AGO -- no period since age 43 LMP: Menopause TECHNIQUE: Transvaginal TECHNICAL QUALITY: Adequate. COMPARISON: None. FINDINGS: The uterus is anteverted and is in a midline position. The uterus measures 6.6 x 4.4 x 4.4 cm. There is a Nabothian cyst of the cervix. The endometrium measures 3 mm in thickness, and is hyperechoic. There is no demonstrated endometrial mass. 1 cm hypoechoic mass in the fundus the uterus consistent with an intramural fibroid. I.U.D. - The patient does not have an I.U.D. The right ovary is visualized. The right ovary measures 1.9 x 1.6 x 2.0 cm. There is no right ovarian cyst or ovarian mass. There is no visualized right adnexal mass or complex lesion. There is normal arterial and normal venous vascularity. The left ovary is non-visualized.. There is no fluid in the cul-de-sac. The pre void volume of the bladder was ml. The post void volume of the bladder was ml. Polycystic ovary disease: No. US/Transvaginal w/Preg US IMPRESSION: 1 cm fibroid in the fundus of the uterus. Electronically Signed: Garrett Barrera MD at 15:05 EDT ,
[2021-08-26 13:13] LABS: hCG Titer Quant., Serum 6 mIU/mL (1-3)
[2021-08-26 13:17] LABS: Prothrombin Time (Protime)PT. 12.4 SECONDS (11.7-14.9)
[2021-08-26] MEDS: 0.9% Normal Saline 1,000 ML 999 ML IV ×2 (13:18→15:04)
[2021-08-26] MEDS: Ondansetron 4 MG/2 ML Vial IV ×2 (13:18→16:37)
--- NOTE | 2021-08-26 13:25 | RAD_ITS ---
STUDY: X-RAY CHEST REASON FOR EXAM: Female, 51 years old. Nausea vomiting TECHNIQUE: Single AP portable view of the chest. COMPARISON: Comparison is made with prior chest radiograph dated 02/10/2021. FINDINGS: EKG electrodes are seen. The lungs are clear and expanded. There is no demonstrated pleural abnormality. Normal size heart. Normal mediastinum and edmundo. Normal visualized pulmonary arteries. Normal visualized aortic arch and descending thoracic aorta. Normal visualized thoracic spine. Normal visualized ribs, clavicles, and shoulders. There is no demonstrated abnormality of the visualized soft tissue structures of the upper abdomen. RAD/Chest 1 View (Portable) IMPRESSION: Normal x-ray examination of the chest. Electronically Signed: Ryan Tejeda MD at 13:43 EDT ,
[2021-08-26 13:34] LABS: AST(SGOT) 28 U/L (15-37); Alanine Aminotransfer ALT/SGPT 28 U/L (13-56); Albumin, Serum 3.3 g/dL (3.2-5.0); Alkaline Phosphatase 182 U/L (45-117); Bilirubin, Direct 0.22 mg/dL (0.00-0.30); Globulin 4.5 g/dL (2.2-4.2); Lipase 115 U/L (73-393); Protein, Total 7.8 g/dL (6.4-8.2); Troponin-I HS 6 pg/mL (3.0-54.0)
[2021-08-26 13:38] LABS: Lactic Acid 1.9 mmol/L (0.4-1.9)
[2021-08-26 14:42] LABS: Mucous, Urine 0 SEEN /hpf (<or=2+); Red Blood Cells-Urine 0 SEEN /hpf (0-5); White Blood Cells 0 SEEN /hpf (0-5)
[2021-08-26 14:43] LABS: Color, Urine Yellow (Yellow); Glucose, Dipstick 1000 mg/dl (Normal); Ketone-Dipstick 5 mg/dl (Negative); Leukocyte Esterase-Dipstick 25 /ul (Negative); Nitrite-Dipstick Negative (Negative); Occult Blood-Urine 10 /ul (Negative); Protein-Dipstick 30 mg/dl (Negative); Urine Bilirubin Dipstick Negative (Negative); Urine Clarity Sl. Cloudy (Clear); Urine Urobilinogen Normal (Normal)
[2021-08-26 15:06] LABS: Squamous Epithelial Cells - UA 0-5 SEEN /hpf (5-10)
[2021-08-26 15:07] LABS: Bacteria 1+ /hpf (None Seen)
[2021-08-26] MEDS: fentaNYL 100 MCG/2 ML Ampul 25 MCG IV (16:37)
--- NOTE | 2021-08-26 16:48 | CT_ITS ---
STUDY: CT ABDOMEN AND PELVIS WITH CONTRAST REASON FOR EXAM: Female, 51 years old. Rlq pain RADIATION DOSAGE (If Supplied By Facility): CTDIvol = ( 17.69 ) mGy, DLP = ( 1004.84 ) mGycm TECHNIQUE: Transaxial images were obtained from the dome of the diaphragm to the symphysis pubis without oral contrast. IV 100mL [id number]-300 was administered. Sagittal and coronal images were reconstructed. Individualized dose optimization techniques were used for this CT. COMPARISON: 01/18/2021 FINDINGS: The visualized lung bases are unremarkable. Small pericardial effusion. Normal liver. There are surgical clips in the gallbladder fossa consistent with a prior cholecystectomy. Normal spleen. Normal pancreas. There is symmetric enlargement of the adrenal glands suggesting adrenal hyperplasia. Normal right kidney. Normal left kidney. Normal visualized stomach. Normal small intestine. Normal colon. There are surgical clips in the region of the appendix consistent with a prior appendectomy. Normal abdominal aorta. Normal inferior vena cava. Normal retroperitoneum. Normal urinary bladder. Normal abdominal wall. Normal osseous structures. CT/Abdomen/Pelvis WITH Contrast IMPRESSION: Normal enhanced CT of the abdomen and pelvis. Electronically Signed: Garrett Barrera MD at 17:08 EDT ,
[2021-08-26 16:51] LABS: Bedside Glucose 371 mg/dL (74-106)
[2021-08-26] MEDS: Insulin Lispro 100 UNIT/ML INSULN.PEN 15 UNIT SC (17:30)
[2021-08-26 18:20] LABS: hCG Titer Quant., Serum 3 mIU/mL (1-3)
[2021-08-26 18:36] LABS: Bedside Glucose 310 mg/dL (74-106)
== END 2021-08-26 18:56 | disposition home or self-care (01) ==
LOC: ED 12:50
PROVIDERS: Emergency Provider Student in an Organized Health Care Education/Training Program; Visit Provider Student in an Organized Health Care Education/Training Program
DX: R11.2 Nausea with vomiting, unspecified (principal); I11.0 Hypertensive heart disease with heart failure; I50.9 Heart failure, unspecified; E11.65 Type 2 diabetes mellitus with hyperglycemia; Z79.4 Long term (current) use of insulin; E78.5 Hyperlipidemia, unspecified; D25.9 Leiomyoma of uterus, unspecified; E86.0 Dehydration; I25.10 Atherosclerotic heart disease of native coronary artery without angina pectoris; R10.31 Right lower quadrant pain; Z90.49 Acquired absence of other specified parts of digestive tract; F17.210 Nicotine dependence, cigarettes, uncomplicated
CPT/HCPCS: 71045; 74177; 76817; 80048; 80076; 81001; 82962; 83605; 83690; 84484; 84702; 84703; 85025; 85610; 85730; 87040; 87086; 87088; 93005; 96361; 96374; 96375; 96376; 99285; J7030; A4216; J2405

== ENCOUNTER 2022-03-27 10:27 | Emergency (ER) | payer MEDICAID, SELFPAY ==
[2022-03-27 10:29] VITALS: BP 125/83; PULSE 116; RESP 16; TEMP 35.9; O2SAT 99; BMI 24.8
--- NOTE | 2022-03-27 10:48 | EX.ED.DYSGE1 ---
HPI History of Present Illness Chief Complaint: General Illness Informant: patient and EMS Narrative Narrative: 51-year-old female presenting to the emergency room chief complaint of abdominal pain and vomiting. Patient states that at 0300 she began to vomit. No diarrhea. She notes now her upper abdomen is sore. She notes that she has had a rash underneath her right breast for the past 3 days and would like that evaluated as well. No blood in the emesis or stool. She notes she has had prior cholecystectomy and . She is a diabetic. [facility] Medical History CAD (coronary artery disease), [place] coronary artery CHF (congestive heart failure) Diabetes mellitus, type 2 GERD (gastroesophageal reflux disease) HTN (hypertension) Hyperlipidemia Toe amputee Home Medications gabapentin 100 mg capsule 100 mg PO BIDCM 30 days #60 caps 08/05/21 [Rx Last Taken Unknown] insulin glargine 100 unit/mL (3 mL) subcutaneous pen (Lantus Solostar U-100 Insulin) 10 units (0.1 mL) subcut QHS 30 days #3 mL 08/05/21 [Rx Last Taken Unknown] insulin lispro 100 unit/mL subcutaneous pen (Humalog KwikPen (U-100) Insulin) 5 unit (0.05 mL) subcut BREAKFAST 30 days #1.5 mL 08/05/21 [Rx Last Taken Unknown] insulin lispro 100 unit/mL subcutaneous pen (Humalog KwikPen (U-100) Insulin) 5 unit (0.05 mL) subcut DINNER 30 days #1.5 mL 08/05/21 [Rx Last Taken Unknown] insulin lispro 100 unit/mL subcutaneous pen (Humalog KwikPen (U-100) Insulin) 5 unit (0.05 mL) subcut LUNCH 30 days #1.5 mL 08/05/21 [Rx Last Taken Unknown] oxycodone-acetaminophen 5 mg-325 mg tablet (Percocet) 1 tab PO Q6H PRN pain 3 days #12 tabs 08/08/21 [Rx Last Taken Unknown] ondansetron 4 mg disintegrating tablet 4 mg PO Q8H PRN nausea and vomiting #10 tabs 08/26/21 [Rx Last Taken Unknown] nystatin 100,000 unit/gram topical powder 1 applic topical TID #60 grams 10/24/22 [Rx Last Taken Unknown] ondansetron HCl 4 mg tablet 4 mg PO Q6H PRN nausea and vomiting #15 tabs 03/27/22 [Rx Last Taken Unknown] Allergy/AdvReac Type Severity Reaction Status Date / Time latex Allergy Hives Verified 03/27/22 10:33 Family History Other Diabetes Heart disease Surgical History History of cholecystectomy Social History household members: spouse and children housing: house Smoking Status: Current every day smoker tobacco type: cigarettes alcohol intake: never what type of physical activity do you participate in: none do you feel safe at home: Yes ROS ROS ED Constitutional Constitutional ED: Denies chills, fever(s) or weight loss Eyes Eyes: Denies change in vision or diplopia ENT ENT ED: Denies ear pain, rhinorrhea or sore throat Cardiovascular Cardiovascular: Denies chest pain, orthopnea, palpitations or racing heartbeat Respiratory/Chest Respiratory/Chest: Denies cough, dyspnea or orthopnea Gastrointestinal Gastrointestinal: Reports abdominal pain, nausea and vomiting; Denies diarrhea Genitourinary Genitourinary ED: Denies dysuria, hematuria or urinary frequency Musculoskeletal Musculoskeletal: Denies arthralgias or myalgias Integumentary Reports rash; Denies abscess Neurologic Neurologic: Denies headache(s) or weakness Psychiatric Psychiatric: Denies anxiety, depression, suicidal ideation or suicidal thoughts Endocrine Endocrinology: Denies polydipsia, polyphagia or polyuria Allergic/Immunologic Allergic/Immunologic ED: Denies mouth swelling, tongue swelling or urticaria EXAM Physical Exam Narrative Exam Narrative: Patient is crying. Const Vital Signs: 03/27/22 10:29 03/27/22 10:33 03/27/22 11:09 Temperature 96.7 F L Temperature Source Temporal Pulse Rate 116 H 110 H Respiratory Rate 16 18 Respiratory Pattern Normal Blood Pressure 125/83 H 116/78 Blood Pressure Mean 97 90 Pulse Ox 99 97 Oxygen Delivery Method Room Air Room Air Positive well nourished and well developed General Appearance ED: well developed HEENT Reports normocephalic, head/scalp atraumatic and moist mucous membranes Eyes PERRL and EOMs intact bilaterally Neck no lymphadenopathy, supple and no JVD Chest Wall Chest Narrative: Anterior inferior skin folds of the right breast demonstrate changes consistent with a skin candidiasis. Resp normal respiratory effort and clear to auscultation bilaterally Cardio regular rate and no murmurs Rate: tachycardic GI GI Narrative: Patient has mild diffuse tenderness palpation out of proportion to the exam. Palpation: soft; Negative for guarding or splenomegaly Back/Spine no CVA tenderness and normal ROM Extremity normal to inspection General Extremety ED: Negative for edema General Extremity: Negative for edema Neuro oriented x3 and CN's II-XII intact bilaterally Sensorium / Orientation: alert Motor Exam: strength 5/5 throughout Psych mental status grossly normal Mood & Affect: Negative for depressed or tearful Skin no rashes or lesions noted and no wounds MDM MDM MDM Narrative Medical decision making narrative: Blood work showed a glucose of 477. Normal CO2 and normal gap. White count 11.2. Patient received Zofran and IV fluids. She has been resting more comfortably. I Veena prescribe her some Zofran for the vomiting and also some nystatin for the candidiasis. We talked about home treatment as well as follow-up return if worsening or concerns Lab Data Attestation: I reviewed the patient's lab results. Labs: Laboratory Results - last 24 hr 03/27/22 03/27/22 10:34 10:34 WBC 11.2 H RBC 5.95 H Hgb 16.6 H Hct 49.3 H MCV 82.9 MCH 27.9 MCHC 33.7 RDW Std Deviation 38.0 RDW Coeff of [place] 12.7 Plt Count 251 MPV 9.6 Immature Gran % (Auto) 0.400 Neut % (Auto) 80.1 H Lymph % (Auto) 14.4 L [place] % (Auto) 3.4 Eos % (Auto) 1.0 Baso % (Auto) 0.7 Absolute Neuts (auto) 8.9 H Absolute Lymphs (auto) 1.61 Nucleated RBC % 0 Sodium 131 L Potassium 4.5 Chloride 94 L Carbon Dioxide 31.0 Anion Gap 6 BUN 12 Creatinine 0.85 Estim Creat Clear Calc 77.00 Est GFR (MDRD) Af Amer 91 Est GFR (MDRD) Non-Af 75 BUN/Creatinine Ratio 14.1 Glucose 477 H* Calcium 9.5 Total Bilirubin 1.20 H AST 17 ALT 22 Alkaline Phosphatase 152 H Total Protein 7.3 Albumin 3.1 L Globulin 4.2 Albumin/Globulin Ratio 0.7 L Lipase 113 Discharge Plan Triage Chief Complaint: General Illness ED Provider: Jesse Abrams Dx/Rx/DC Orders Clinical Impression: Vomiting, Candidiasis of skin, Diabetes Instructions: ED Ashley Skin Infection (Adult), ED Vomiting (Adult) Prescriptions: New ondansetron HCl 4 mg tablet 4 mg PO Q6H PRN (Reason: nausea and vomiting) Qty: 15 0RF nystatin 100,000 unit/gram powder 1 applic topical TID Qty: 60 0RF No Action gabapentin 100 mg Capsule 100 mg PO BIDCM 30 Days Qty: 60 0RF insulin lispro [Humalog KwikPen Insulin] 100 unit/mL Insulin Pen 5 unit subcut BREAKFAST 30 Days Qty: 1.5 0RF insulin lispro [Humalog KwikPen Insulin] 100 unit/mL Insulin Pen 5 unit subcut DINNER 30 Days Qty: 1.5 0RF insulin lispro [Humalog KwikPen Insulin] 100 unit/mL Insulin Pen 5 unit subcut LUNCH 30 Days Qty: 1.5 0RF Lantus Solostar U-100 Insulin 100 unit/mL (3 mL) Insulin Pen 10 units subcut QHS 30 Days Qty: 3 0RF oxycodone-acetaminophen [Percocet] 5-325 mg tablet 1 tab PO Q6H PRN (Reason: pain) 3 Days Qty: 12 0RF ondansetron 4 mg tablet,disintegrating 4 mg PO Q8H PRN (Reason: nausea and vomiting) Qty: 10 0RF Primary Care Provider: Ama Neff Referrals: Ama Neff [Primary Care Provider] - As Needed Disposition Disposition: Home, Self Care
[2022-03-27 10:58] LABS: Absolute Lymphocyte Count 1.61 X10^3/uL (0.83-4.51); Absolute Neutrophil Count 8.9 X10^3/uL (2.0-7.7); Basophil# 0.08 X10^3/uL; Basophil% 0.7 % (0-1); Eosinophil# 0.11 X10^3/uL; Hematocrit 49.3 % (37-47); Hemoglobin 16.6 g/dL (12.0-15.0); Lymphocyte # 1.61 X10^3/ul (0.83-4.51); Lymphocyte % 14.4 % (19-41); Mean Corp Hgb Conc 33.7 g/dL (32-36); Mean Corpuscular Hgb 27.9 pg (27.0-32.0); Mean Corpuscular Volume 82.9 fL (81-99); Mean Platelet Vol. 9.6 fl (6.2-12.0); Monocyte# 0.38 X10^3/uL; Monocyte% 3.4 % (0-10); NRBC Flagged by Analyzer 0 % (0-5); Neutrophil # 8.94 X10^3/uL (2.7-7.7); Neutrophil % 80.1 % (47-70); Platelet Count 251 K/mm3 (150-450); RBC Distribution Width CV 12.7 % (11.6-14.6); Red Blood Count 5.95 M/mm3 (4.2-5.4); White Blood Count 11.2 K/mm3 (4.4-11.0)
[2022-03-27] MEDS: Morphine 4 MG/ML Syringe IV (11:05)
[2022-03-27] MEDS: 0.9% Normal Saline 1,000 ML 1000 ML IV (11:05)
[2022-03-27] MEDS: Ondansetron 4 MG/2 ML Vial IV (11:06)
[2022-03-27 11:09] VITALS: BP 116/78; PULSE 110; RESP 18; O2SAT 97
[2022-03-27 11:20] LABS: ALB/GLOB Ratio 0.7 RATIO (0.9-2.4); AST(SGOT) 17 U/L (15-37); Alanine Aminotransfer ALT/SGPT 22 U/L (13-56); Albumin, Serum 3.1 g/dL (3.2-5.0); Alkaline Phosphatase 152 U/L (45-117); Anion Gap 6 (5-15); BUN 12 mg/dL (7-18); BUN/Creat Ratio 14.1 RATIO (10-20); Calcium,Total 9.5 mg/dL (8.5-10.1); Chloride 94 mmol/L (98-107); Creatinine, Serum 0.85 mg/dL (0.55-1.02); EST Glomerular Filtration Rate 75 mL/min (>60); Est Glom Filt Rate - Afr Amer 91 mL/min (>60); Globulin 4.2 g/dL (2.2-4.2); Glucose 477 mg/dL (74-106); Lipase 113 U/L (73-393); Potassium 4.5 mmol/L (3.5-5.1); Protein, Total 7.3 g/dL (6.4-8.2); Sodium Level 131 mmol/L (136-145)
[2022-03-27 12:26] VITALS: BP 130/90; PULSE 103; RESP 16; O2SAT 96
== END 2022-03-27 12:53 | disposition home or self-care (01) ==
PROVIDERS: Emergency Provider Emergency Medicine; Visit Provider Emergency Medicine
DX: R11.10 Vomiting, unspecified (principal); I11.0 Hypertensive heart disease with heart failure; I50.9 Heart failure, unspecified; E11.9 Type 2 diabetes mellitus without complications; B37.2 Candidiasis of skin and nail; E78.5 Hyperlipidemia, unspecified; I25.10 Atherosclerotic heart disease of native coronary artery without angina pectoris
CPT/HCPCS: 80053; 83690; 85025; 99285; J7030; A4216; J2405

== ENCOUNTER 2022-04-17 13:52 | Emergency (ER) | payer MEDICAID, SELFPAY ==
[2022-04-17 13:53] VITALS: BP 125/80; PULSE 130; RESP 18; TEMP 36.6; O2SAT 97; BMI 24.3
--- NOTE | 2022-04-17 16:21 | EX.ED.DYSGE1 ---
HPI History of Present Illness Chief Complaint: Headache Narrative Narrative: Patient presents with gradual onset of headache for the past 2 days. She is chronic recurrent migraines, although they have been more and more rare for the past few years the last headache that was this bad was maybe 2 years ago and last migraine was less than a year ago. However this feels the same. She has no fevers or chills she has no vision changes although she has some photophobia. She has some nausea but no vomiting no recent trauma. No weakness or paresthesias or any other neurological symptoms. [facility] Medical History CAD (coronary artery disease), [place] coronary artery CHF (congestive heart failure) Diabetes mellitus, type 2 GERD (gastroesophageal reflux disease) HTN (hypertension) Hyperlipidemia Toe amputee Home Medications gabapentin 100 mg capsule 100 mg PO BIDCM 30 days #60 caps 08/05/21 [Rx Last Taken Unknown] insulin glargine 100 unit/mL (3 mL) subcutaneous pen (Lantus Solostar U-100 Insulin) 10 units (0.1 mL) subcut QHS 30 days #3 mL 08/05/21 [Rx Last Taken Unknown] insulin lispro 100 unit/mL subcutaneous pen (Humalog KwikPen (U-100) Insulin) 5 unit (0.05 mL) subcut BREAKFAST 30 days #1.5 mL 08/05/21 [Rx Last Taken Unknown] insulin lispro 100 unit/mL subcutaneous pen (Humalog KwikPen (U-100) Insulin) 5 unit (0.05 mL) subcut DINNER 30 days #1.5 mL 08/05/21 [Rx Last Taken Unknown] insulin lispro 100 unit/mL subcutaneous pen (Humalog KwikPen (U-100) Insulin) 5 unit (0.05 mL) subcut LUNCH 30 days #1.5 mL 08/05/21 [Rx Last Taken Unknown] oxycodone-acetaminophen 5 mg-325 mg tablet (Percocet) 1 tab PO Q6H PRN pain 3 days #12 tabs 08/08/21 [Rx Last Taken Unknown] ondansetron 4 mg disintegrating tablet 4 mg PO Q8H PRN nausea and vomiting #10 tabs 08/26/21 [Rx Last Taken Unknown] nystatin 100,000 unit/gram topical powder 1 applic topical TID #60 grams 03/27/22 [Rx Last Taken Unknown] ondansetron HCl 4 mg tablet 4 mg PO Q6H PRN nausea and vomiting #15 tabs 03/27/22 [Rx Last Taken Unknown] Allergy/AdvReac Type Severity Reaction Status Date / Time latex Allergy Hives Verified 04/17/22 13:55 Family History Other Diabetes Heart disease Surgical History History of cholecystectomy Social History household members: spouse and children housing: house Smoking Status: Current every day smoker tobacco type: cigarettes alcohol intake: never what type of physical activity do you participate in: none do you feel safe at home: Yes ROS ROS ED ROS Narrative Past medical history: Reviewed, includes history of migraines, gallbladder disease to this postcholecystectomy. She tells me she has CHF but is not mentioned on her medical history. Medications: Reviewed Social history: Noncontributory Review of systems: All systems negative except as indicated General: No fever Eyes: No visual changes. Some photophobia ENT: No upper airway congestion, normal voice Neck: No neck pain Cardiovascular: No chest pain Respiratory: No shortness of breath or cough Gastrointestinal: No abdominal pain, nausea vomiting or diarrhea Genitourinary: No dysuria Musculoskeletal: Denies myalgias no difficulty with ambulation Skin: No rash Neurological: Headache as in HPI no memory loss, confusion or any focal weakness Psych: No recent behavioral changes Hematologic: No easy bleeding or easy bruising EXAM Physical Exam Narrative Exam Narrative: Physical exam General: Patient appears somewhat uncomfortable Head: Normocephalic, Atraumatic Eyes: Conjunctiva not pale ENT: Slightly dry mucous membranes Neck: Supple, Nontender, No lymphadenopathy Cardiovascular: Regular rate, Regular rhythm Respiratory: No distress, CTA bilaterally Abdomen: Soft, Nontender, Nondistended Back: Nontender, Normal Inspection. Negative for: CVA tenderness Extremities: Nontender, No edema Skin: Normal color, No rash Neurological: Alert, Normal Strength, Normal Sensation Psychological: Normal affect Const Vital Signs: 04/17/22 13:53 Temperature 97.9 F Temperature Source Temporal Pulse Rate 130 H Respiratory Rate 18 Blood Pressure 125/80 H Blood Pressure Mean 95 Pulse Ox 97 Oxygen Delivery Method Room Air MDM MDM MDM Narrative Medical decision making narrative: Patient's headache significantly improved she is now requesting to be discharged. She was initially tachycardic but now she has a normal heart rate as I walk into the room. She has normal electrolytes. I did give her IV fluids and she seemed dehydrated initially. She appears stable for discharge. Lab Data Labs: Laboratory Results - last 24 hr 04/17/22 04/17/22 16:41 16:41 WBC 11.4 H RBC 5.50 H Hgb 15.9 H Hct 45.8 MCV 83.3 MCH 28.9 MCHC 34.7 RDW Std Deviation 38.7 RDW Coeff of [place] 12.8 Plt Count 234 MPV 9.4 Immature Gran % (Auto) 0.300 Neut % (Auto) 79.1 H Lymph % (Auto) 12.8 L [place] % (Auto) 5.9 Eos % (Auto) 1.2 Baso % (Auto) 0.7 Absolute Neuts (auto) 9.0 H Absolute Lymphs (auto) 1.46 Nucleated RBC % 0 Sodium 136 Potassium 3.5 Chloride 100 Carbon Dioxide 28.0 Anion Gap 8 BUN 6 L Creatinine 0.77 Estim Creat Clear Calc 85.00 Est GFR (MDRD) Af Amer 102 Est GFR (MDRD) Non-Af 84 BUN/Creatinine Ratio 7.8 L Glucose 368 H Calcium 9.0 Total Bilirubin 1.00 AST 25 ALT 31 Alkaline Phosphatase 132 H Total Protein 6.6 Albumin 3.0 L Globulin 3.6 Albumin/Globulin Ratio 0.8 L Discharge Plan Triage Chief Complaint: Headache ED Provider: Vidal Mcneal Dx/Rx/DC Orders Clinical Impression: Migraine headache, Acute dehydration Instructions: ED Headache Unspecified Prescriptions: No Action gabapentin 100 mg Capsule 100 mg PO BIDCM 30 Days Qty: 60 0RF insulin lispro [Humalog KwikPen Insulin] 100 unit/mL Insulin Pen 5 unit subcut BREAKFAST 30 Days Qty: 1.5 0RF insulin lispro [Humalog KwikPen Insulin] 100 unit/mL Insulin Pen 5 unit subcut DINNER 30 Days Qty: 1.5 0RF insulin lispro [Humalog KwikPen Insulin] 100 unit/mL Insulin Pen 5 unit subcut LUNCH 30 Days Qty: 1.5 0RF Lantus Solostar U-100 Insulin 100 unit/mL (3 mL) Insulin Pen 10 units subcut QHS 30 Days Qty: 3 0RF oxycodone-acetaminophen [Percocet] 5-325 mg tablet 1 tab PO Q6H PRN (Reason: pain) 3 Days Qty: 12 0RF ondansetron 4 mg tablet,disintegrating 4 mg PO Q8H PRN (Reason: nausea and vomiting) Qty: 10 0RF ondansetron HCl 4 mg tablet 4 mg PO Q6H PRN (Reason: nausea and vomiting) Qty: 15 0RF nystatin 100,000 unit/gram powder 1 applic topical TID Qty: 60 0RF Primary Care Provider: Ama Neff Referrals: Ama Neff [Primary Care Provider] - 3-5 Days Disposition Disposition: Home, Self Care
[2022-04-17] MEDS: Ketorolac 15 MG/ML Vial IV (16:43)
[2022-04-17] MEDS: DiphenhydrAMINE 50 MG/ML Syringe 25 MG IV (16:45)
[2022-04-17] MEDS: Metoclopramide 10 MG/2 ML Vial IV (16:46)
[2022-04-17 16:53] LABS: Absolute Lymphocyte Count 1.46 X10^3/uL (0.83-4.51); Basophil# 0.08 X10^3/uL; Basophil% 0.7 % (0-1); Eosinophil# 0.14 X10^3/uL; Eosinophils% 1.2 % (0-5); Hematocrit 45.8 % (37-47); Hemoglobin 15.9 g/dL (12.0-15.0); Lymphocyte # 1.46 X10^3/ul (0.83-4.51); Lymphocyte % 12.8 % (19-41); Mean Corp Hgb Conc 34.7 g/dL (32-36); Mean Corpuscular Hgb 28.9 pg (27.0-32.0); Mean Corpuscular Volume 83.3 fL (81-99); Mean Platelet Vol. 9.4 fl (6.2-12.0); Monocyte# 0.67 X10^3/uL; Monocyte% 5.9 % (0-10); NRBC Flagged by Analyzer 0 % (0-5); Neutrophil # 9.04 X10^3/uL (2.7-7.7); Neutrophil % 79.1 % (47-70); Platelet Count 234 K/mm3 (150-450); RBC Distribution Width CV 12.8 % (11.6-14.6); RBC Distribution Width SD 38.7 fl (35.1-43.9); White Blood Count 11.4 K/mm3 (4.4-11.0)
[2022-04-17 17:14] LABS: ALB/GLOB Ratio 0.8 RATIO (0.9-2.4); AST(SGOT) 25 U/L (15-37); Alanine Aminotransfer ALT/SGPT 31 U/L (13-56); Alkaline Phosphatase 132 U/L (45-117); Anion Gap 8 (5-15); BUN 6 mg/dL (7-18); BUN/Creat Ratio 7.8 RATIO (10-20); Chloride 100 mmol/L (98-107); Creatinine, Serum 0.77 mg/dL (0.55-1.02); EST Glomerular Filtration Rate 84 mL/min (>60); Est Glom Filt Rate - Afr Amer 102 mL/min (>60); Globulin 3.6 g/dL (2.2-4.2); Glucose 368 mg/dL (74-106); Potassium 3.5 mmol/L (3.5-5.1); Protein, Total 6.6 g/dL (6.4-8.2); Sodium Level 136 mmol/L (136-145)
== END 2022-04-17 18:43 | disposition home or self-care (01) ==
PROVIDERS: Emergency Provider Emergency Medicine; Visit Provider Emergency Medicine
DX: G43.909 Migraine, unspecified, not intractable, without status migrainosus (principal); I11.0 Hypertensive heart disease with heart failure; I50.9 Heart failure, unspecified; E11.9 Type 2 diabetes mellitus without complications; E86.0 Dehydration; I25.10 Atherosclerotic heart disease of native coronary artery without angina pectoris; E78.5 Hyperlipidemia, unspecified
CPT/HCPCS: 80053; 85025; 96374; 96375; 99282; J7030; A4216

== ENCOUNTER 2022-04-18 14:03 | Emergency (ER) | payer MEDICAID, SELFPAY ==
[2022-04-18 14:04] VITALS: BP 139/88; PULSE 115; RESP 16; TEMP 36.2; O2SAT 97; BMI 24.7
--- NOTE | 2022-04-18 14:30 | RAD_ITS ---
STUDY: X-RAY - RIGHT SHOULDER REASON FOR EXAM: Female, 51 years old. Pain following a fall. TECHNIQUE: 3 view(s) of the shoulder. COMPARISON: None. FINDINGS: There is mild degenerative arthrosis of the glenohumeral articulation. There is degenerative arthrosis of the acromioclavicular joint without inferior osseous spur formation. Normal acromion. Nondisplaced fracture through the surgical neck of the proximal humerus with extension to the greater tuberosity. Soft tissue swelling. Normal visualized pulmonary apex. RAD/Shoulder min 2 Views IMPRESSION: Nondisplaced transverse fracture through the surgical neck of the proximal humerus with extension to the greater tuberosity. Electronically Signed: Ryan Tejeda MD at 15:06 EST ,
--- NOTE | 2022-04-18 15:12 | EX.ED.UPPERE ---
HPI History of Present Illness Chief Complaint: Upper Extremity Injury Narrative Narrative: Patient presents with injury to her right shoulder that she sustained just prior to arrival. She states she was at [facility] and was bending over and to help keep her balance put her right arm on a shelf for support. She felt pain in her right shoulder. She is right-hand dominant. She now has pain when she tries to move her right upper extremity, especially her shoulder. She denies other injuries. She did not fall and hit her head. No loss of consciousness. Of note, she states that she sustained injury to her left shoulder this past summer where she had broken her proximal humerus because the door had swung back too far, and she felt a crack at that time. She presents because of the right shoulder pain. She denies other injury. [facility] Medical History CAD (coronary artery disease), [place] coronary artery CHF (congestive heart failure) Diabetes mellitus, type 2 GERD (gastroesophageal reflux disease) HTN (hypertension) Hyperlipidemia Toe amputee Home Medications gabapentin 100 mg capsule 100 mg PO BIDCM 30 days #60 caps 08/05/21 [Rx Last Taken Unknown] insulin glargine 100 unit/mL (3 mL) subcutaneous pen (Lantus Solostar U-100 Insulin) 10 units (0.1 mL) subcut QHS 30 days #3 mL 08/05/21 [Rx Last Taken Unknown] insulin lispro 100 unit/mL subcutaneous pen (Humalog KwikPen (U-100) Insulin) 5 unit (0.05 mL) subcut BREAKFAST 30 days #1.5 mL 08/05/21 [Rx Last Taken Unknown] insulin lispro 100 unit/mL subcutaneous pen (Humalog KwikPen (U-100) Insulin) 5 unit (0.05 mL) subcut DINNER 30 days #1.5 mL 08/05/21 [Rx Last Taken Unknown] insulin lispro 100 unit/mL subcutaneous pen (Humalog KwikPen (U-100) Insulin) 5 unit (0.05 mL) subcut LUNCH 30 days #1.5 mL 08/05/21 [Rx Last Taken Unknown] oxycodone-acetaminophen 5 mg-325 mg tablet (Percocet) 1 tab PO Q6H PRN pain 3 days #12 tabs 08/08/21 [Rx Last Taken Unknown] ondansetron 4 mg disintegrating tablet 4 mg PO Q8H PRN nausea and vomiting #10 tabs 08/26/21 [Rx Last Taken Unknown] nystatin 100,000 unit/gram topical powder 1 applic topical TID #60 grams 03/27/22 [Rx Last Taken Unknown] ondansetron HCl 4 mg tablet 4 mg PO Q6H PRN nausea and vomiting #15 tabs 03/27/22 [Rx Last Taken Unknown] hydrocodone-acetaminophen 5-325mg 5mg-325mg 1 tab PO Q6H PRN pain 3 days #12 tabs 04/18/22 [Rx Last Taken Unknown] Allergy/AdvReac Type Severity Reaction Status Date / Time latex Allergy Hives Verified 04/18/22 14:04 Family History Other Diabetes Heart disease Surgical History History of cholecystectomy Social History household members: spouse and children housing: house Smoking Status: Current every day smoker tobacco type: cigarettes alcohol intake: never what type of physical activity do you participate in: none do you feel safe at home: Yes ROS ROS ED ROS Narrative Constitutional: No fever, no chills. HEENT: No sore throat. No neck pain. No loss of vision. No rhinorrhea. Cardiovascular: No chest pain. No palpitations. No pedal edema. Respiratory: No cough, no shortness of breath. Abdominal: No abdominal pain. No nausea. No vomiting. Genitourinary: No dysuria. No hematuria. Musculoskeletal: No myalgias. Right shoulder pain worse with movement. Neurologic: No headaches. No dizziness. No lightheadedness. Skin: No rash. No change in color. Psychiatric: No depression. No anxiety. EXAM Physical Exam Narrative Exam Narrative: Afebrile. Vital signs noted. HEENT: Normocephalic. Atraumatic. PERRL, EOMI. Neck soft and supple. No point tenderness or step off. Cardiovascular: Regular rate and rhythm. No murmurs, rubs, or gallops appreciated. Respiratory: No tachypnea. Lungs clear to auscultation bilaterally. Gastrointestinal: Abdomen soft, nontender, with normoactive bowel sounds. No rebound or guarding. Neurological: Awake. Alert. Nonfocal, nonlateralizing. Skin: No rash. Normal color. No pallor. Musculoskeletal: No pedal edema. Diffuse right shoulder tenderness to palpation, no crepitance. Neurovascularly intact distally with palpable radial pulse. Full range of motion of fingers. Const Vital Signs: 04/18/22 14:04 Temperature 97.2 F L Temperature Source Temporal Pulse Rate 115 H Respiratory Rate 16 Blood Pressure 139/88 H Blood Pressure Mean 105 Pulse Ox 97 Oxygen Delivery Method Room Air MDM MDM MDM Narrative Medical decision making narrative: Patient was given a [place] tablet here for analgesia. X-ray of the right shoulder interpreted by myself does show a nondisplaced surgical neck fracture. At this point in time, she will be referred to orthopedics, be placed in a sling and swath, and written a prescription for [place] tablets for the next 3 days. She will ice the area. I did stress the importance of following up with orthopedics. Disposition is discharged home in stable condition. Return instructions were reviewed. Radiography Diagnostic Testing: Clinical Impression(s) from Imaging Studies Shoulder X-Ray 04/18/22 14:30 IMPRESSION: Nondisplaced transverse fracture through the surgical neck of the proximal humerus with extension to the greater tuberosity. Electronically Signed: Ryan Tejeda MD at 15:06 EST , Discharge Plan Triage Chief Complaint: Upper Extremity Injury ED Provider: Jeremiah Rawls Dx/Rx/DC Orders Clinical Impression: Fracture of proximal end of right humerus, Shoulder pain Instructions: ED Fracture, Shoulder Prescriptions: New hydrocodone-acetaminophen 5-325 mg tablet 1 tab PO Q6H PRN (Reason: pain) 3 Days Qty: 12 0RF No Action gabapentin 100 mg Capsule 100 mg PO BIDCM 30 Days Qty: 60 0RF insulin lispro [Humalog KwikPen Insulin] 100 unit/mL Insulin Pen 5 unit subcut BREAKFAST 30 Days Qty: 1.5 0RF insulin lispro [Humalog KwikPen Insulin] 100 unit/mL Insulin Pen 5 unit subcut DINNER 30 Days Qty: 1.5 0RF insulin lispro [Humalog KwikPen Insulin] 100 unit/mL Insulin Pen 5 unit subcut LUNCH 30 Days Qty: 1.5 0RF Lantus Solostar U-100 Insulin 100 unit/mL (3 mL) Insulin Pen 10 units subcut QHS 30 Days Qty: 3 0RF oxycodone-acetaminophen [Percocet] 5-325 mg tablet 1 tab PO Q6H PRN (Reason: pain) 3 Days Qty: 12 0RF ondansetron 4 mg tablet,disintegrating 4 mg PO Q8H PRN (Reason: nausea and vomiting) Qty: 10 0RF ondansetron HCl 4 mg tablet 4 mg PO Q6H PRN (Reason: nausea and vomiting) Qty: 15 0RF nystatin 100,000 unit/gram powder 1 applic topical TID Qty: 60 0RF Primary Care Provider: Ama Neff Referrals: Jordan Costello MD [Med Staff - Active Staff] - 5-7 Days Ama Neff [Primary Care Provider] - Disposition Disposition: Home, Self Care
[2022-04-18] MEDS: HYDROcodone Bitartrate/Apap 5/325 Tablet PO (15:19)
== END 2022-04-18 15:38 | disposition home or self-care (01) ==
LOC: ED 15:30
PROVIDERS: Emergency Provider Emergency Medicine; Visit Provider Emergency Medicine
DX: S42.91XA Fracture of right shoulder girdle, part unspecified, initial encounter for closed fracture (principal); I11.0 Hypertensive heart disease with heart failure; I50.9 Heart failure, unspecified; E11.9 Type 2 diabetes mellitus without complications; Z79.4 Long term (current) use of insulin; X50.1XXA Overexertion from prolonged static or awkward postures, initial encounter; Y92.512 Supermarket, store or market as the place of occurrence of the external cause; I25.10 Atherosclerotic heart disease of native coronary artery without angina pectoris; E78.5 Hyperlipidemia, unspecified; K21.9 Gastro-esophageal reflux disease without esophagitis; Z79.899 Other long term (current) drug therapy; F17.210 Nicotine dependence, cigarettes, uncomplicated
CPT/HCPCS: 73030; 99283

== ENCOUNTER 2022-05-09 19:00 | Emergency (ER) | payer MEDICAID, SELFPAY ==
[2022-05-09 19:01] VITALS: BP 137/76; PULSE 124; RESP 16; TEMP 36.4; O2SAT 99; BMI 24.3
[2022-05-09] MEDS: Morphine 4 MG/ML Syringe IV (22:46)
[2022-05-09] MEDS: Ondansetron 4 MG/2 ML Vial IV (22:47)
[2022-05-09] MEDS: 0.9% Normal Saline 1,000 ML 999 ML IV (22:47)
[2022-05-09 22:53] LABS: Absolute Lymphocyte Count 0.43 X10^3/uL (0.83-4.51); Absolute Neutrophil Count 9.6 X10^3/uL (2.0-7.7); Basophil# 0.04 X10^3/uL; Basophil% 0.4 % (0-1); Eosinophil# 0.08 X10^3/uL; Eosinophils% 0.8 % (0-5); Hematocrit 46.6 % (37-47); Hemoglobin 15.5 g/dL (12.0-15.0); Lymphocyte # 0.43 X10^3/ul (0.83-4.51); Mean Corp Hgb Conc 33.3 g/dL (32-36); Mean Corpuscular Hgb 28.2 pg (27.0-32.0); Mean Corpuscular Volume 84.9 fL (81-99); Mean Platelet Vol. 9.6 fl (6.2-12.0); Monocyte# 0.51 X10^3/uL; Monocyte% 4.8 % (0-10); NRBC Flagged by Analyzer 0 % (0-5); Neutrophil # 9.55 X10^3/uL (2.7-7.7); Neutrophil % 89.6 % (47-70); POSITIVE DIFFERENTIAL YES; Platelet Count 289 K/mm3 (150-450); RBC Distribution Width CV 13.5 % (11.6-14.6); RBC Distribution Width SD 41.5 fl (35.1-43.9); Red Blood Count 5.49 M/mm3 (4.2-5.4); White Blood Count 10.7 K/mm3 (4.4-11.0)
[2022-05-09 22:59] LABS: Differential Indicated SCAN CRITERIA MET
[2022-05-09 23:00] VITALS: RESP 17
[2022-05-09 23:13] LABS: AST(SGOT) 21 U/L (15-37); Alanine Aminotransfer ALT/SGPT 17 U/L (13-56); Albumin, Serum 3.2 g/dL (3.2-5.0); Alkaline Phosphatase 142 U/L (45-117); Anion Gap 4 (5-15); BUN 11 mg/dL (7-18); BUN/Creat Ratio 15.2 RATIO (10-20); Bilirubin, Direct 0.18 mg/dL (0.00-0.30); Calcium,Total 9.4 mg/dL (8.5-10.1); Chloride 100 mmol/L (98-107); Creatinine, Serum 0.72 mg/dL (0.55-1.02); EST Glomerular Filtration Rate 91 mL/min (>60); Est Glom Filt Rate - Afr Amer 110 mL/min (>60); Globulin 4.5 g/dL (2.2-4.2); Glucose 364 mg/dL (74-106); Lipase 89 U/L (73-393); Potassium 4.6 mmol/L (3.5-5.1); Protein, Total 7.7 g/dL (6.4-8.2); Sodium Level 133 mmol/L (136-145)
[2022-05-09 23:21] LABS: Differential Comment SCANNED
[2022-05-10] MEDS: fentaNYL 100 MCG/2 ML Ampul 50 MCG IV (00:04)
--- NOTE | 2022-05-10 00:36 | EDS_ITS ---
HPI History of Present Illness Chief Complaint: Abd Pain Narrative Narrative: Patient is a 51-year-old female with past medical history of insulin-dependent diabetes as well as a recent right proximal humerus fracture. She states that yesterday after eating she began with bouts of nausea and vomiting that have persisted for essentially the entire day. She denies any known sick contacts and she denies any history of abdominal disorder. She states that because of her current symptoms and her inability to tolerate any type of food or fluid she is not been taking her insulin and with concern for infection and dehydration presents for evaluation [facility] Medical History CAD (coronary artery disease), [place] coronary artery CHF (congestive heart failure) Diabetes mellitus, type 2 GERD (gastroesophageal reflux disease) HTN (hypertension) Hyperlipidemia Toe amputee Home Medications insulin glargine 100 unit/mL (3 mL) subcutaneous pen (Lantus Solostar U-100 Insulin) 10 units (0.1 mL) subcut QHS 30 days #3 mL 08/05/21 [Rx Last Taken Unknown] insulin lispro 100 unit/mL subcutaneous pen (Humalog KwikPen (U-100) Insulin) 5 unit (0.05 mL) subcut BREAKFAST 30 days #1.5 mL 08/05/21 [Rx Last Taken Unknown] insulin lispro 100 unit/mL subcutaneous pen (Humalog KwikPen (U-100) Insulin) 5 unit (0.05 mL) subcut DINNER 30 days #1.5 mL 08/05/21 [Rx Last Taken Unknown] insulin lispro 100 unit/mL subcutaneous pen (Humalog KwikPen (U-100) Insulin) 5 unit (0.05 mL) subcut LUNCH 30 days #1.5 mL 08/05/21 [Rx Last Taken Unknown] nystatin 100,000 unit/gram topical powder 1 applic topical TID #60 grams 03/27/22 [Rx Last Taken Unknown] ondansetron 4 mg disintegrating tablet 4 mg PO TID PRN nausea and vomiting #21 tabs 05/10/22 [Rx Last Taken Unknown] oseltamivir 75 mg capsule (Tamiflu) 75 mg PO BID 5 days #10 caps 05/10/22 [Rx Last Taken Unknown] oxycodone-acetaminophen 5 mg-325 mg tablet (Percocet) 1 tab PO Q6H PRN pain 3 days #12 tabs 05/10/22 [Rx Last Taken Unknown] Allergy/AdvReac Type Severity Reaction Status Date / Time latex Allergy Hives Verified 05/09/22 19:01 Family History Other Diabetes Heart disease Surgical History History of cholecystectomy Social History household members: spouse and children housing: house Smoking Status: Current every day smoker tobacco type: cigarettes alcohol intake: never what type of physical activity do you participate in: none do you feel safe at home: Yes ROS ROS ED Constitutional Constitutional ED: Denies chills or fever(s) ENT ENT ED: Reports sore throat Cardiovascular Cardiovascular: Denies chest pain Respiratory/Chest Respiratory/Chest: Reports cough; Denies dyspnea Gastrointestinal Gastrointestinal: Reports abdominal pain, nausea and vomiting; Denies diarrhea Genitourinary Genitourinary ED: Denies dysuria Musculoskeletal Musculoskeletal: Reports myalgias Integumentary Denies rash Neurologic Neurologic: Denies headache(s) Hematologic/Lymphatic Hematologic/Lymphatic: Denies easy bleeding or easy bruising EXAM Physical Exam Const Vital Signs: 05/09/22 19:01 05/09/22 23:00 05/10/22 00:56 Temperature 97.5 F L Temperature Source Temporal Pulse Rate 124 H 101 H Respiratory Rate 16 17 17 Blood Pressure 137/76 H 118/75 Blood Pressure Mean 96 Pulse Ox 99 94 Oxygen Delivery Method Room Air Room Air Positive well nourished and well developed General Appearance ED: well developed HEENT Reports dry mucous membranes HEENT Narrative: No oral lesions no airway edema or compromise but mucous membranes are dry and tacky Mouth ED: Yes dry mucous membranes Mouth: dry mucous membranes Eyes PERRL and EOMs intact bilaterally General Eye ED: Negative for scleral icterus Neck supple Neck Narrative: Positive anterior cervical lymphadenopathy noted Resp normal respiratory effort and clear to auscultation bilaterally Cardio regular rhythm Rate: tachycardic and other Other Details: Radial pulses are plus 2 out of 4 bilaterally are equal and symmetric GI non-tender and non-distended GI Narrative: Abdomen is soft nontender and nondistended with hyperactive bowel sounds. No voluntary guarding or rigidity no pulsatile mass Auscultation: hyperactive bowel sounds Palpation: soft Extremity Extremity Narrative: Patient's right arm is in a sling consistent with a recent proximal humerus fracture. However all extremities are neurovascularly intact Neuro oriented x3 and CN's II-XII intact bilaterally Sensorium / Orientation: alert Psych mental status grossly normal Skin no rashes or lesions noted Skin Narrative: Skin turgor is increased General Skin Exam: Negative for jaundice MDM MDM MDM Narrative Medical decision making narrative: Patient presented to the ER slightly hypertensive and tachycardic. Her constellation of symptoms is consistent with influenza. Secondary to this a viral swab was obtained and with her diabetes to ensure there is no DKA or HHS basic blood work was ordered. The patient's influenza swab is positive consistent with her history and physical exam. Blood work shows hyperglycemia but there are no changes to suggest DKA or HHS as her serum osmolality is 292. Patient was hydrated and given symptom control with pain medication and Zofran. On repeat evaluation her abdomen remains soft and nonsurgical her vitals are stabilizing and she had no further bouts of vomiting. Therefore she can be given symptomatic medications and otherwise discharged home Lab Data Attestation: I reviewed the patient's lab results. Labs: Laboratory Results - last 24 hr 05/09/22 05/09/22 05/09/22 22:46 22:46 22:46 WBC 10.7 RBC 5.49 H Hgb 15.5 H Hct 46.6 MCV 84.9 MCH 28.2 MCHC 33.3 RDW Std Deviation 41.5 RDW Coeff of Spencer 13.5 Plt Count 289 MPV 9.6 Immature Gran % (Auto) 0.400 Neut % (Auto) 89.6 H Lymph % (Auto) 4.0 L Mitchell % (Auto) 4.8 Eos % (Auto) 0.8 Baso % (Auto) 0.4 Absolute Neuts (auto) 9.6 H Absolute Lymphs (auto) 0.43 L Nucleated RBC % 0 Differential Comment SCANNED Sodium 133 L Potassium 4.6 Chloride 100 Carbon Dioxide 29.0 Anion Gap 4 L BUN 11 Creatinine 0.72 Estim Creat Clear Calc 90.90 Est GFR (MDRD) Af Amer 110 Est GFR (MDRD) Non-Af 91 BUN/Creatinine Ratio 15.2 Glucose 364 H Calcium 9.4 Total Bilirubin 1.40 H Direct Bilirubin 0.18 AST 21 ALT 17 Alkaline Phosphatase 142 H Total Protein 7.7 Albumin 3.2 Globulin 4.5 H Lipase 89 Acetone Level NEGATIVE Discharge Plan Triage Chief Complaint: Abd Pain ED Provider: Conor Martin Dx/Rx/DC Orders Clinical Impression: Influenza A, Nausea & vomiting, Mild dehydration, Insulin dependent diabetes mellitus Instructions: ED Diet Vomiting Diarrhea, ED Influenza (Adult) Prescriptions: New oseltamivir [Tamiflu] 75 mg capsule 75 mg PO BID 5 Days Qty: 10 0RF ondansetron 4 mg tablet,disintegrating 4 mg PO TID PRN (Reason: nausea and vomiting) Qty: 21 0RF oxycodone-acetaminophen [Percocet] 5-325 mg tablet 1 tab PO Q6H PRN (Reason: pain) 3 Days Qty: 12 0RF No Action insulin lispro [Humalog KwikPen Insulin] 100 unit/mL Insulin Pen 5 unit subcut BREAKFAST 30 Days Qty: 1.5 0RF insulin lispro [Humalog KwikPen Insulin] 100 unit/mL Insulin Pen 5 unit subcut DINNER 30 Days Qty: 1.5 0RF insulin lispro [Humalog KwikPen Insulin] 100 unit/mL Insulin Pen 5 unit subcut LUNCH 30 Days Qty: 1.5 0RF insulin glargine [Lantus Solostar U-100 Insulin] 100 unit/mL (3 mL) Insulin Pen 10 units subcut QHS 30 Days Qty: 3 0RF nystatin 100,000 unit/gram powder 1 applic topical TID Qty: 60 0RF Primary Care Provider: Ama Neff Referrals: Ama Neff [Primary Care Provider] - Disposition Disposition: Home, Self Care Discharge Date/Time: 05/10/22 00:56
[2022-05-10 00:56] VITALS: BP 118/75; PULSE 101; RESP 17; O2SAT 94
== END 2022-05-10 00:56 | disposition home or self-care (01) ==
PROVIDERS: Emergency Provider Emergency Medicine; Visit Provider Emergency Medicine
DX: J10.1 Influenza due to other identified influenza virus with other respiratory manifestations (principal); I11.0 Hypertensive heart disease with heart failure; I50.9 Heart failure, unspecified; E11.65 Type 2 diabetes mellitus with hyperglycemia; Z79.4 Long term (current) use of insulin; R11.2 Nausea with vomiting, unspecified; I25.10 Atherosclerotic heart disease of native coronary artery without angina pectoris; E86.0 Dehydration; E78.5 Hyperlipidemia, unspecified; R10.9 Unspecified abdominal pain
CPT/HCPCS: 80048; 80076; 82009; 83690; 85025; 87428; 96361; 96374; 96375; 99285; J7030; A4216; J2405

== ENCOUNTER 2022-05-19 14:44 | Emergency (ER) | payer MEDICAID, SELFPAY ==
[2022-05-19 14:45] VITALS: BP 127/87; PULSE 134; RESP 18; TEMP 35.5; O2SAT 96; BMI 24.3
[2022-05-19 16:17] LABS: Absolute Lymphocyte Count 1.58 X10^3/uL (0.83-4.51); Absolute Neutrophil Count 9.1 X10^3/uL (2.0-7.7); Basophil# 0.08 X10^3/uL; Basophil% 0.7 % (0-1); Eosinophil# 0.11 X10^3/uL; Hematocrit 48.9 % (37-47); Hemoglobin 16.2 g/dL (12.0-15.0); Lymphocyte # 1.58 X10^3/ul (0.83-4.51); Lymphocyte % 13.9 % (19-41); Mean Corp Hgb Conc 33.1 g/dL (32-36); Mean Corpuscular Hgb 27.9 pg (27.0-32.0); Mean Corpuscular Volume 84.3 fL (81-99); Mean Platelet Vol. 9.7 fl (6.2-12.0); Monocyte# 0.45 X10^3/uL; NRBC Flagged by Analyzer 0 % (0-5); Neutrophil # 9.06 X10^3/uL (2.7-7.7); Neutrophil % 79.9 % (47-70); Platelet Count 260 K/mm3 (150-450); RBC Distribution Width CV 13.5 % (11.6-14.6); RBC Distribution Width SD 41.3 fl (35.1-43.9); White Blood Count 11.3 K/mm3 (4.4-11.0)
[2022-05-19 16:25] LABS: Internal QC Validated? YES +Cl - CLEAR BKGD; Pregnancy, Serum, hCG Quali. NEGATIVE Negative
[2022-05-19 16:33] LABS: Anion Gap 6 (5-15); BUN 8 mg/dL (7-18); BUN/Creat Ratio 10.2 RATIO (10-20); Calcium,Total 9.2 mg/dL (8.5-10.1); Chloride 97 mmol/L (98-107); Creatinine, Serum 0.78 mg/dL (0.55-1.02); EST Glomerular Filtration Rate 82 mL/min (>60); Est Glom Filt Rate - Afr Amer 100 mL/min (>60); Estimated Creatinine Clearance 83.91 ml/min; Glucose 402 mg/dL (74-106); Potassium 4.5 mmol/L (3.5-5.1); Sodium Level 131 mmol/L (136-145)
--- NOTE | 2022-05-19 17:07 | ED.VIS.GI ---
HPI HPI - GI History of Present Illness Chief Complaint: Abd Pain Informant: patient Narrative Narrative: Patient presenting with nausea vomiting since this morning. Abdominal cramping secondary to vomiting. Dry heaving currently. No diarrhea. No fevers. States dealing with a humerus fracture a few weeks ago currently in a sling saw orthopedics being referred up to [facility]. No planned surgical intervention. She is on oxycodone however and I keep it this down. Increasing pain from her shoulder. PFSH [facility] Medical History CAD (coronary artery disease), [place] coronary artery CHF (congestive heart failure) Diabetes mellitus, type 2 GERD (gastroesophageal reflux disease) HTN (hypertension) Hyperlipidemia Toe amputee Home Medications insulin glargine 100 unit/mL (3 mL) subcutaneous pen (Lantus Solostar U-100 Insulin) 10 units (0.1 mL) subcut QHS 30 days #3 mL 08/05/21 [Rx Last Taken Unknown] insulin lispro 100 unit/mL subcutaneous pen (Humalog KwikPen (U-100) Insulin) 5 unit (0.05 mL) subcut BREAKFAST 30 days #1.5 mL 08/05/21 [Rx Last Taken Unknown] insulin lispro 100 unit/mL subcutaneous pen (Humalog KwikPen (U-100) Insulin) 5 unit (0.05 mL) subcut DINNER 30 days #1.5 mL 08/05/21 [Rx Last Taken Unknown] insulin lispro 100 unit/mL subcutaneous pen (Humalog KwikPen (U-100) Insulin) 5 unit (0.05 mL) subcut LUNCH 30 days #1.5 mL 08/05/21 [Rx Last Taken Unknown] nystatin 100,000 unit/gram topical powder 1 applic topical TID #60 grams 03/27/22 [Rx Last Taken Unknown] ondansetron 4 mg disintegrating tablet 4 mg PO TID PRN nausea and vomiting #21 tabs 05/10/22 [Rx Last Taken Unknown] oseltamivir 75 mg capsule (Tamiflu) 75 mg PO BID 5 days #10 caps 05/10/22 [Rx Last Taken Unknown] oxycodone-acetaminophen 5 mg-325 mg tablet (Percocet) 1 tab PO Q6H PRN pain 3 days #12 tabs 05/10/22 [Rx Last Taken Unknown] ondansetron 4 mg disintegrating tablet 4 mg PO Q6H PRN nausea and vomiting #20 tabs 05/19/22 [Rx Last Taken Unknown] oxycodone-acetaminophen 5 mg-325 mg tablet (Percocet) 1 tab PO Q6H PRN pain 3 days #12 tabs 05/19/22 [Rx Last Taken Unknown] Allergy/AdvReac Type Severity Reaction Status Date / Time latex Allergy Hives Verified 05/19/22 14:45 Family History Other Diabetes Heart disease Surgical History History of cholecystectomy Social History household members: spouse and children housing: house Smoking Status: Current every day smoker tobacco type: cigarettes alcohol intake: never what type of physical activity do you participate in: none do you feel safe at home: Yes ROS ROS ED Constitutional Constitutional ED: Denies chills, fever(s) or sweats Eyes Eyes: Denies change in vision ENT ENT ED: Denies dysphagia or sore throat Cardiovascular Cardiovascular: Denies chest pain, leg edema, palpitations or racing heartbeat Respiratory/Chest Respiratory/Chest: Denies cough, dyspnea or dyspnea on exertion Gastrointestinal Gastrointestinal: Reports abdominal pain, nausea and vomiting; Denies diarrhea Genitourinary Genitourinary ED: Denies dysuria, hematuria or urinary frequency Musculoskeletal Musculoskeletal: Reports extremity pain; Denies back pain or neck pain Integumentary Denies rash or wounds Neurologic Neurologic: Denies headache(s), paresthesias or weakness EXAM Physical Exam Const Vital Signs: 05/19/22 14:45 Temperature 96 F L Temperature Source Temporal Pulse Rate 134 H Respiratory Rate 18 Blood Pressure 127/87 H Blood Pressure Mean 100 Pulse Ox 96 Oxygen Delivery Method Room Air Positive well nourished and well developed General Appearance ED: well developed and NAD HEENT Reports moist mucous membranes normocephalic and atraumatic Eyes PERRL, EOMs intact bilaterally and conjunctivae normal General Eye ED: Yes normal appearance of both eyes Neck no lymphadenopathy and supple General: Negative for tenderness Chest Wall Chest: Negative for tenderness Resp normal respiratory effort and normal air movement Effort and Inspection: symmetric chest movement; Negative for respiratory distress Cardio regular rhythm and no murmurs Rate: tachycardic Peripheral Pulses: pulses 2+ throughout GI normal to inspection, nondistended, normoactive bowel sounds GI Narrative: Negative Jimenez's or McBurney's tenderness. Palpation: Negative for guarding or rebound tenderness present Back/Spine no CVA tenderness and no thoracic nor lumbar tenderness Extremity Extremity Narrative: Right upper extremity sling. Pulses are intact distally. General Extremety ED: Negative for edema or tenderness General Extremity: Negative for edema Neuro oriented x3 and no sensory deficits noted Sensorium / Orientation: awake and alert Skin no rashes or lesions noted and no wounds MDM MDM MDM Narrative Medical decision making narrative: Patient tachycardic in triage, I feel combination of pain from her arm and vomiting. She has a nonsurgical abdomen. Labs were obtained white count 11.3 Hemoccult 16.2. Sodium 131 creatinine 0.78. hCG negative. Glucose 402, normal anion gap. She is given IV fluids. With her pain in her arm primary is given morphine due to inability to keep things down. 183: Reevaluation nausea improved however reports persistent pain in her right humerus where her fracture is. She is seen by orthopedics however she states she has not given any refills of medications. She will be given oxycodone in the ED along with p.o. challenge. OAR[place] report was reviewed, last prescription 9 days ago when she had pain with flulike symptoms. Her fracture is back on April 18. Discussed with patient we will write additional prescription however refills need to be obtained by her specialist in the future. She understands this. Lab Data Attestation: I reviewed the patient's lab results. Labs: Laboratory Results - last 24 hr 05/19/22 05/19/22 05/19/22 16:10 16:10 16:10 WBC 11.3 H RBC 5.80 H Hgb 16.2 H Hct 48.9 H MCV 84.3 MCH 27.9 MCHC 33.1 RDW Std Deviation 41.3 RDW Coeff of Spencer 13.5 Plt Count 260 MPV 9.7 Immature Gran % (Auto) 0.500 Neut % (Auto) 79.9 H Lymph % (Auto) 13.9 L Cook % (Auto) 4.0 Eos % (Auto) 1.0 Baso % (Auto) 0.7 Absolute Neuts (auto) 9.1 H Absolute Lymphs (auto) 1.58 Nucleated RBC % 0 Sodium 131 L Potassium 4.5 Chloride 97 L Carbon Dioxide 28.0 Anion Gap 6 BUN 8 Creatinine 0.78 Estim Creat Clear Calc 83.91 Est GFR (MDRD) Af Amer 100 Est GFR (MDRD) Non-Af 82 BUN/Creatinine Ratio 10.2 Glucose 402 H Calcium 9.2 Serum , Qual NEGATIVE Discharge Plan Triage Chief Complaint: Abd Pain Other Complaint: Nausea/Vomiting ED Provider: Zack Card Dx/Rx/DC Orders Clinical Impression: Vomiting, Fracture of head of humerus, Hyperglycemia due to diabetes mellitus Instructions: ED Vomiting (Adult) Prescriptions: New oxycodone-acetaminophen [Percocet] 5-325 mg tablet 1 tab PO Q6H PRN (Reason: pain) 3 Days Qty: 12 0RF ondansetron 4 mg tablet,disintegrating 4 mg PO Q6H PRN (Reason: nausea and vomiting) Qty: 20 0RF No Action insulin lispro [Humalog KwikPen Insulin] 100 unit/mL Insulin Pen 5 unit subcut BREAKFAST 30 Days Qty: 1.5 0RF insulin lispro [Humalog KwikPen Insulin] 100 unit/mL Insulin Pen 5 unit subcut DINNER 30 Days Qty: 1.5 0RF insulin lispro [Humalog KwikPen Insulin] 100 unit/mL Insulin Pen 5 unit subcut LUNCH 30 Days Qty: 1.5 0RF insulin glargine [Lantus Solostar U-100 Insulin] 100 unit/mL (3 mL) Insulin Pen 10 units subcut QHS 30 Days Qty: 3 0RF nystatin 100,000 unit/gram powder 1 applic topical TID Qty: 60 0RF oseltamivir [Tamiflu] 75 mg capsule 75 mg PO BID 5 Days Qty: 10 0RF ondansetron 4 mg tablet,disintegrating 4 mg PO TID PRN (Reason: nausea and vomiting) Qty: 21 0RF oxycodone-acetaminophen [Percocet] 5-325 mg tablet 1 tab PO Q6H PRN (Reason: pain) 3 Days Qty: 12 0RF Primary Care Provider: Ama Neff Referrals: Ama Neff [Primary Care Provider] - 3-5 Days Activity Restrictions/Additional Instructions: Continue oral fluids. Zofran as needed. Take pain medicines as prescribed for your fracture. Future prescriptions for pain medicines need to be provided by your PCP or your specialist. Glucose is 402, normal gap, you are not in DKA. Take your medications at home. Follow-up with your doctor. Disposition Disposition: Home, Self Care
[2022-05-19] MEDS: Morphine 4 MG/ML Syringe IV (17:30)
[2022-05-19] MEDS: Ondansetron 4 MG/2 ML Vial IV (17:30)
[2022-05-19] MEDS: oxyCODONE 5 MG Tablet PO (18:42)
[2022-05-19 19:29] VITALS: PULSE 102; O2SAT 97
== END 2022-05-19 19:30 | disposition home or self-care (01) ==
PROVIDERS: Emergency Provider Emergency Medicine; Visit Provider Emergency Medicine
DX: R11.2 Nausea with vomiting, unspecified (principal); I11.0 Hypertensive heart disease with heart failure; I50.9 Heart failure, unspecified; E11.65 Type 2 diabetes mellitus with hyperglycemia; Z79.4 Long term (current) use of insulin; S42.301D Unspecified fracture of shaft of humerus, right arm, subsequent encounter for fracture with routine healing; X58.XXXD Exposure to other specified factors, subsequent encounter; E78.5 Hyperlipidemia, unspecified; I25.10 Atherosclerotic heart disease of native coronary artery without angina pectoris; K21.9 Gastro-esophageal reflux disease without esophagitis; Z79.899 Other long term (current) drug therapy; F17.210 Nicotine dependence, cigarettes, uncomplicated
CPT/HCPCS: 80048; 84703; 85025; 96361; 96374; 96375; 99285; J7030; A4216; J2405

== ENCOUNTER 2022-06-21 14:35 | Outpatient (RCR) | payer MEDICAID, SELFPAY ==
--- NOTE | 2022-06-21 15:44 | HP.PTEVAL ---
Patient's Visit Information TRENTON DENTON is a 51 year old F referred to Physical Therapy by DAVID ADAMS with a diagnosis of R shoulder Fx. Date of Evaluation: 06/21/22 Physical Therapist: Sebastien Garcia, PT, ATC - Visit Plan Frequency: 2-3x /Week Duration: 4-6 Weeks Plan: R shoulder AROM, rot cuff strengthening, scap stab ex's, UBE, and HEP - Subjective DOI: 05/02/22. Pt reports she was leaning on her R UE while shopping for a TV at [employer] when her arm suddenly popped 3 times and she fell to the ground on her knees. Pt reports she was able to get to her feet again, and drove to the ER. Pt had x-rays taken which revealed a 3 part fracture to her R humerus. Pt notes she went to an orthopedic which told her to stay in a sling for the next few weeks. Pt reports she went back to see her doctor last week where she had x-rays taken which revealed full healing. Pt notes she is excited to start PT in order to get her R arm moving better now. Pt reports she has difficulty now with bathroom transfers and getting dressed at this time secondary to pain. Pt also notes getting dressed causes her pain at this time. Pt is R hand dominant. Pt reports she has tingling and numbness in R UE from the elbow down intermittently since her injury. Occasional sleeep difficulty secondary to pain. Pt reports 8/10 pain at rest, 10/10 pain at worst. - Pain R shoulder Pain Intensity (Out of 10): 8 Pain Intensity Range: 10 - Objective Neuro: B UE sensation is WNL to light tough. B bicipital reflex= 1/3. ROM: L shoulder flex= 180, abd= 180, ER= 40, IR= WNL; R shoulder flex= 110, abd= 110, ER= 10, IR= moderately limited. MMT: L shoulder flex= 9, abd= 17, ER= 10, IR= 15 #F; R shoulder flex= 3, abd= 9, ER= 5, IR= 7 #F - Balance/Special Test Scores Quick DASH Score: 59.0900 - Goals Goal 1:: Decrease R shoulder pain x 50% to aid with sleep Goal Time Frame: 4-6 Weeks Goal 2:: Increase R shoulder flexion and abduction ROM x 30 degrees to aid with overhead activity Goal Time Frame: 4-6 Weeks Goal 3:: Increase R shoulder strength x 1 grade to aid with RTW without limitation Goal Time Frame: 4-6 Weeks Goal 4:: I with HEP Goal Time Frame: 4-6 Weeks - Rehabilitation Potential Physical Therapy Diagnosis: Pt has R shoulder pain, weakness, and limited ROM secondary to R humeral Fx Rehabilitation Potential: Good - Anticipated Interventions Patient/Client Instruction: Educate patient on: Condition, Plan of Care For the Purpose of:: To improve self management Therapeutic Exercise to Include: Strength training, Endurance training, Body mechanics, Flexibilty training, Active ROM, Scapular Strength/Stabilization For the Purpose of:: To decrease pain, To increase ROM, To improve muscle performance and motor function Cryotherapy (ice pack, ice massage): Yes For the Purpose of:: To decrease pain Thank you for the opportunity to evaluate your patient. For Medicare and Medicare HMO plans, please review the plan of care and approve it. It will need to be FAXED BACK to us at [phone] for Medicare purposes. For Medicare only, by signing this I certify the plan of care. Please let me know if there are questions or concerns regarding this plan of care. Physician Signature: Date:
--- NOTE | 2022-11-23 13:01 | HP.PT.NRP ---
TRENTON DENTON was seen in my office for initial evaluation on 06/21/22. The following Plan of Care was established for this patient: Initial Frequency: 2-3x /Week Initial Duration: 4-6 Weeks Patient/Client Instruction: Educate patient on: Condition, Plan of Care For the Purpose of:: To improve self management Therapeutic Exercise to Include: Strength training, Endurance training, Body mechanics, Flexibilty training, Active ROM, Scapular Strength/Stabilization For the Purpose of:: To decrease pain, To increase ROM, To improve muscle performance and motor function Cryotherapy (ice pack, ice massage): Yes For the Purpose of:: To decrease pain This patient was last seen in our office . Pertinent comments regarding their Physical therapy will appear below: Pt was evaluated for R shoulder pain on the date of 06/21/22. Pt has not returned throughout this date and is discontinued at this time At this point I will be discontinuing this patient from physical therapy. I would be happy to see this patient again in the future if found appropriate by the physician. Thank you! Sebastien Garcia, PT, ATC Balance/Gait/Functional tests - Balance/Special Test Scores Quick DASH Score: [phone]
== END 2022-06-21 19:00 | disposition home or self-care (01) ==
LOC: PT 14:35
DX: S42.291D Other displaced fracture of upper end of right humerus, subsequent encounter for fracture with routine healing (principal)
CPT/HCPCS: 97161

== ENCOUNTER → 2022-06-29 | Outpatient (CLI) | payer MEDICAID, SELFPAY ==
--- NOTE | 2022-06-29 14:30 | BD_ITS ---
STUDY: DUAL ENERGY X-RAY ABSORPTIOMETRY / DXA REASON FOR EXAM: Female, 51 years old. M810 TECHNIQUE: Bone Mineral Density (BMD) measurements of lumbar spine and left hip were obtained. COMPARISON: None. FINDINGS: Lumbar Spine (L1-L4): g/cm2 (0.920) / T-score (-1.2) / Z-score (-0.4) Findings are suggestive of osteopenia with a low fracture risk. Left Femur Total: g/cm2 (0.533) / T-score (-3.4) / Z-score (-2.9) Left Femoral Neck: g/cm2 (0.478) / T-score (-3.3) / Z-score (-2.6) BD/Dexa Bone Density Study IMPRESSION: The patient is considered osteoporotic as outlined below according to World [place] Organization (WHO) criteria with a high fracture risk. Reference Information: The T-score is the number of standard deviations above or below the standard which is normal for young adults at their peak bone mineral density. The World Health Organization (WHO) interprets the T-scores as follows: Above -1 Normal bone density Between -1 and -2.5 Osteopenia Equal to / or below -2.5 Osteoporosis As a practical clinical guideline, osteopenia may be graded as follows: Mild -1 through -1.5 Moderate -1.6 through -2.0 Severe -2.1 through -2.4 The Z-score is the number of standard deviations above or below age-matched controls. A Z-score of less than -1.5 would be considered abnormal. References: 1. NIH Osteoporosis and Related Bone Diseases www osteo.org 2. International Society for Clinical Densitometry www iscd.org 3. National Osteoporosis Foundation www nof.org Electronically Signed: Ryan Tejeda MD at 9:38 EST ,
== END | disposition home or self-care (01) ==
PROVIDERS: Visit Provider Nurse Practitioner Family
DX: Z13.820 Encounter for screening for osteoporosis (principal); M81.0 Age-related osteoporosis without current pathological fracture
CPT/HCPCS: 77080

== ENCOUNTER 2022-07-25 09:15 | Emergency (ER) | payer MEDICAID, SELFPAY ==
[2022-07-25 09:16] VITALS: BP 145/93; PULSE 116; RESP 16; TEMP 36.3; O2SAT 98; BMI 26.3
--- NOTE | 2022-07-25 09:19 | EKG12_ITS ---
Test Reason : CP Blood Pressure : / mmHG Vent. Rate : 115 BPM Atrial Rate : 115 BPM P-R Int : 164 ms QRS Dur : 120 ms QT Int : 346 ms P-R-T Axes : 052 -54 087 degrees QTc Int : 478 ms Sinus tachycardia Possible Left atrial enlargement Left axis deviation Left ventricular hypertrophy with QRS widening ( Brian product ) Cannot rule out Septal infarct , age undetermined Abnormal ECG Confirmed by TIP HERNANDEZ, LORETA ([id number]), acquisition editor FELICIA HOLCOMB ([id number]) on 07/26/2022 9:01:53 AM Referred By: DAKOTA Confirmed By:LORETA WHELAN MD
--- NOTE | 2022-07-25 09:20 | EDS_ITS ---
HPI History of Present Illness Chief Complaint: Nausea/Vomiting Narrative Narrative: Patient presents with nausea and vomiting and burning in her stomach. She has had quite bit of indigestion over the past few weeks, it got worse today and she had an episode of vomiting. This also exacerbated her chronic back pain. She is denying any chest pain. She has no shortness of breath or cough. Her pain is mostly in the epigastrium but again she complains of midline back pain that is chronic and she attributes to chronic osteoarthritis and osteoporosis. She has no right upper quadrant pain. She has no lower abdominal pain. No recent fevers chills. She is denying any urinary symptoms. [facility] Medical History CAD (coronary artery disease), [place] coronary artery CHF (congestive heart failure) Diabetes mellitus, type 2 GERD (gastroesophageal reflux disease) HTN (hypertension) Hx of fracture of humerus Hyperlipidemia Toe amputee Home Medications ondansetron 4 mg disintegrating tablet 4 mg PO Q6H PRN nausea and vomiting #20 tabs 05/19/22 [Rx Last Taken Unknown] alendronate 70 mg tablet 70 mg PO WE 07/25/22 [History Last Taken Unknown] cholecalciferol (vitamin D3) 25 mcg (1,000 unit) tablet 1,000 unit PO DAILY 07/25/22 [History Last Taken Unknown] insulin glargine 100 unit/mL (3 mL) subcutaneous pen (Lantus Solostar U-100 Insulin) 10 units subcut BID 07/25/22 [History Last Taken Unknown] omeprazole 40 mg capsule,delayed release 40 mg PO DAILY #30 caps 07/25/22 [Rx Last Taken Unknown] Allergy/AdvReac Type Severity Reaction Status Date / Time latex Allergy Hives Verified 07/25/22 09:18 Family History Other Diabetes Heart disease Surgical History History of cholecystectomy Social History household members: spouse and children housing: house Smoking Status: Current every day smoker tobacco type: cigarettes alcohol intake: never what type of physical activity do you participate in: none do you feel safe at home: Yes ROS ROS ED ROS Narrative Past medical history: Reviewed, includes CAD, history of migraines, osteoporosis, diabetes, hypercholesterolemia, hypertension Medications: Reviewed Social history: Noncontributory other than that she continues to smoke Review of systems: All systems negative except as indicated General: No fever Eyes: No visual changes ENT: No upper airway congestion, normal voice Neck: No neck pain Cardiovascular: No chest pain Respiratory: No shortness of breath or cough Gastrointestinal: As in HPI Genitourinary: No dysuria Musculoskeletal: Chronic back pain as in HPI Skin: No rash Neurological: No memory loss, confusion or any focal weakness EXAM Physical Exam Narrative Exam Narrative: Physical exam General: Well nourished, Well developed, No Acute Distress Head: Normocephalic, Atraumatic Eyes: Conjunctiva not pale ENT: Moist mucous membranes Neck: Supple, Nontender, No lymphadenopathy Cardiovascular: Regular rate, Regular rhythm Respiratory: No distress, CTA bilaterally Abdomen: Soft, epigastric tenderness to palpation. No right upper quadrant pain. Negative Jimenez's. No lower abdominal pain, no guarding or rebound. Overall a benign abdominal exam. Back: Midline thoracic pain which is chronic for her. Extremities: Nontender, No edema Skin: Normal color, No rash Neurological: Alert, Normal Strength, Normal Sensation Psychological: Slightly anxious Const Vital Signs: 07/25/22 09:16 Temperature 97.4 F L Temperature Source Temporal Pulse Rate 116 H Respiratory Rate 16 Blood Pressure 145/93 H Blood Pressure Mean 110 Pulse Ox 98 Oxygen Delivery Method Room Air MDM MDM MDM Narrative Medical decision making narrative: A. Problems addressed Patient has chronic back pain which was treated with morphine, I do not believe any imaging is needed at this time for it. I thought about an x-ray but she has known osteoarthritis and her pain has not changed. Because of the patient's history of CAD and risk factors for acute coronary syndrome with troponin and EKG were done to rule out any kind of coronary artery disease. The work-up is unremarkable. As far as her abdominal pain I thought about pancreatitis or g allbladder disease however signs or symptoms are most consistent with gastritis for which I treated her. She does have chronic gastritis she has some Zofran at home but does not take a PPI. With her risk factors am worried about Hodge's esophagus or adenocarcinoma I will refer her to GI for endoscopy. She knows this. I will start a PPI. B. Amount and/or complexity of the data 1. CBC CMP, lipase and troponin ordered and interpreted by me 2. Independent interpretation of test Telemetry: Heart rate is in the 110s on the monitor without ectopy C. Risk of complications and/or morbidity Differential diagnosis: See above Lab Data Labs: Laboratory Results - last 24 hr 07/25/22 07/25/22 07/25/22 09:30 09:30 10:15 WBC 8.6 RBC 5.96 H Hgb 16.9 H Hct 50.4 H MCV 84.6 MCH 28.4 MCHC 33.5 RDW Std Deviation 38.3 RDW Coeff of [place] 12.4 Plt Count 163 MPV 10.2 Immature Gran % (Auto) 0.600 Neut % (Auto) 78.2 H Lymph % (Auto) 13.7 L [place] % (Auto) 5.2 Eos % (Auto) 1.6 Baso % (Auto) 0.7 Absolute Neuts (auto) 6.8 Absolute Lymphs (auto) 1.18 Nucleated RBC % 0 Sodium Cancelled 135 L Potassium Cancelled 4.1 Chloride Cancelled 101 Carbon Dioxide Cancelled 27.0 Anion Gap Cancelled 7 BUN Cancelled 12 Creatinine Cancelled 0.80 Estim Creat Clear Calc Cancelled 81.81 Est GFR (MDRD) Af Amer Cancelled 97 Est GFR (MDRD) Non-Af Cancelled 80 BUN/Creatinine Ratio Cancelled 14.9 Glucose Cancelled 415 H Calcium Cancelled 8.6 Total Bilirubin Cancelled 0.40 AST Cancelled 17 ALT Cancelled 15 Alkaline Phosphatase Cancelled 113 Troponin I High Sens Cancelled 10 Total Protein Cancelled 6.6 Albumin Cancelled 2.6 L Globulin Cancelled 4.0 Albumin/Globulin Ratio Cancelled 0.6 L Lipase Cancelled 104 EKG Initial EKG: Comments: Sinus rhythm with a rate of 115. Normal MN interval. QTc is 478. Nonspecific changes throughout, some LVH is present. Left axis deviation is present. Nonspecific ST changes throughout. Otherwise unremarkable EKG Interpreted by emergency doctor Discharge Plan Triage Chief Complaint: Nausea/Vomiting Other Complaint: Back Upper Extremity Injury ED Provider: Vidal Mcneal Dx/Rx/DC Orders Clinical Impression: Gastritis, Abdominal pain Instructions: ED Gastritis (Adult) Prescriptions: New omeprazole 40 mg capsule,delayed release(DR/EC) 40 mg PO DAILY Qty: 30 0RF No Action ondansetron 4 mg tablet,disintegrating 4 mg PO Q6H PRN (Reason: nausea and vomiting) Qty: 20 0RF alendronate 70 mg tablet 70 mg PO WE Label Comments: take one tablet weekly cholecalciferol (vitamin D3) 25 mcg (1,000 unit) tablet 1,000 unit PO DAILY Label Comments: TAKE 1 TABLET DAILY insulin glargine [Lantus Solostar U-100 Insulin] 100 unit/mL (3 mL) insulin pen 10 units subcut BID Primary Care Provider: Ama Neff Referrals: Jeevan De Jesus DO [Med Staff - Active Staff] - 3-5 Days Ama Neff [Primary Care Provider] - Disposition Disposition: Home, Self Care
[2022-07-25] MEDS: Morphine 4 MG/ML Syringe IV ×2 (09:35→12:09)
[2022-07-25] MEDS: Ondansetron 4 MG/2 ML Vial IV (09:35)
[2022-07-25] MEDS: Famotidine 200 MG/20 ML MDV 20 MG in 0.9% Normal Saline (Pres. free 8 ML 300 MG IV (09:37)
[2022-07-25 09:42] LABS: Absolute Lymphocyte Count 1.18 X10^3/uL (0.83-4.51); Absolute Neutrophil Count 6.8 X10^3/uL (2.0-7.7); Basophil# 0.06 X10^3/uL; Basophil% 0.7 % (0-1); Eosinophil# 0.14 X10^3/uL; Eosinophils% 1.6 % (0-5); Hematocrit 50.4 % (37-47); Hemoglobin 16.9 g/dL (12.0-15.0); Lymphocyte # 1.18 X10^3/ul (0.83-4.51); Lymphocyte % 13.7 % (19-41); Mean Corp Hgb Conc 33.5 g/dL (32-36); Mean Corpuscular Hgb 28.4 pg (27.0-32.0); Mean Corpuscular Volume 84.6 fL (81-99); Mean Platelet Vol. 10.2 fl (6.2-12.0); Monocyte# 0.45 X10^3/uL; Monocyte% 5.2 % (0-10); NRBC Flagged by Analyzer 0 % (0-5); Neutrophil # 6.76 X10^3/uL (2.7-7.7); Neutrophil % 78.2 % (47-70); POSITIVE COUNT YES; Platelet Count 163 K/mm3 (150-450); RBC Distribution Width CV 12.4 % (11.6-14.6); RBC Distribution Width SD 38.3 fl (35.1-43.9); Red Blood Count 5.96 M/mm3 (4.2-5.4); White Blood Count 8.6 K/mm3 (4.4-11.0)
--- NOTE | 2022-07-25 09:46 | NURSING ---
CHEMISTRIES HEMOLIZED. LAB WILL REPRINT LABELS
[2022-07-25 10:41] LABS: ALB/GLOB Ratio 0.6 RATIO (0.9-2.4); AST(SGOT) 17 U/L (15-37); Alanine Aminotransfer ALT/SGPT 15 U/L (13-56); Albumin, Serum 2.6 g/dL (3.2-5.0); Alkaline Phosphatase 113 U/L (45-117); Anion Gap 7 (5-15); BUN 12 mg/dL (7-18); BUN/Creat Ratio 14.9 RATIO (10-20); Calcium,Total 8.6 mg/dL (8.5-10.1); Chloride 101 mmol/L (98-107); EST Glomerular Filtration Rate 80 mL/min (>60); Est Glom Filt Rate - Afr Amer 97 mL/min (>60); Estimated Creatinine Clearance 81.81 ml/min; Glucose 415 mg/dL (74-106); Lipase 104 U/L (73-393); Potassium 4.1 mmol/L (3.5-5.1); Protein, Total 6.6 g/dL (6.4-8.2); Sodium Level 135 mmol/L (136-145); Troponin-I HS 10 pg/mL (3.0-54.0)
[2022-07-25] MEDS: Mag Hydrox/Al Hydrox/Simeth 30 ML UDC PO (12:07)
[2022-07-25 12:13] VITALS: BP 142/90; PULSE 78; RESP 18; O2SAT 98
== END 2022-07-25 12:14 | disposition home or self-care (01) ==
PROVIDERS: Emergency Provider Emergency Medicine; Visit Provider Emergency Medicine
DX: K29.70 Gastritis, unspecified, without bleeding (principal); E11.9 Type 2 diabetes mellitus without complications; Z79.4 Long term (current) use of insulin; E78.00 Pure hypercholesterolemia, unspecified; M54.9 Dorsalgia, unspecified; E78.5 Hyperlipidemia, unspecified; F17.200 Nicotine dependence, unspecified, uncomplicated; I25.10 Atherosclerotic heart disease of native coronary artery without angina pectoris; G89.29 Other chronic pain; I10 Essential (primary) hypertension
CPT/HCPCS: 80053; 83690; 84484; 85025; 93005; 96374; 96375; 96376; 99284; J7030; A4216; J2405; J3490

== ENCOUNTER 2022-08-03 12:18 | Emergency (ER) | payer MEDICAID, SELFPAY ==
[2022-08-03 12:19] VITALS: BP 132/83; PULSE 112; RESP 18; TEMP 36.5; O2SAT 100; BMI 25.2
--- NOTE | 2022-08-03 12:30 | EKG12_ITS ---
Test Reason : CP Blood Pressure : / mmHG Vent. Rate : 118 BPM Atrial Rate : 118 BPM P-R Int : 156 ms QRS Dur : 114 ms QT Int : 344 ms P-R-T Axes : 064 -54 082 degrees QTc Int : 482 ms Sinus tachycardia Left axis deviation Incomplete left bundle branch block Abnormal ECG Confirmed by TOÑO HERNANDEZ, MELVINA ([id number]), international editorial producer FELICIA HOLCOMB ([id number]) on 08/07/2022 11:09:17 AM Referred By: BB Confirmed By:MELVINA LUNDBERG MD
--- NOTE | 2022-08-03 12:32 | EDS_ITS ---
HPI <GLENN Ruelas - Last Filed: 08/03/22 17:13> History of Present Illness Chief Complaint: Chest Pain Narrative Narrative: Patient is a 51-year-old female with history of migraine headaches, chronic pain, diabetes, hypertension, lipidemia presents to the emergency department with sudden onset of chest pain as well as nausea and vomiting. Patient states that she been dealing with a lot of stress at home. She says around 8 AM this morning, she had midsternal chest pain that started with nausea vomiting. Patient states that she has been more dry heaving. She denies any fever or chills. Denies any recent travel. Patient was seen here on July 27 for another episode of nausea and vomiting. She was discharged home at that time. No imaging was done. Patient states has been taking all medications as prescribed. PFSH <GLENN Ruelas - Last Filed: 08/03/22 17:13> [facility] Medical History CAD (coronary artery disease), mechoopda coronary artery CHF (congestive heart failure) Diabetes mellitus, type 2 GERD (gastroesophageal reflux disease) HTN (hypertension) Hx of fracture of humerus Hyperlipidemia Toe amputee Home Medications ondansetron 4 mg disintegrating tablet 4 mg PO Q6H PRN nausea and vomiting #20 tabs 05/19/22 [Rx Last Taken Unknown] alendronate 70 mg tablet 70 mg PO WE 07/25/22 [History Last Taken Unknown] cholecalciferol (vitamin D3) 25 mcg (1,000 unit) tablet 1,000 unit PO DAILY 07/25/22 [History Last Taken Unknown] insulin glargine 100 unit/mL (3 mL) subcutaneous pen (Lantus Solostar U-100 Insulin) 10 units subcut BID 07/25/22 [History Last Taken Unknown] omeprazole 40 mg capsule,delayed release 40 mg PO DAILY #30 caps 07/25/22 [Rx Last Taken Unknown] dicyclomine 20 mg tablet 20 mg PO BID #14 tabs 08/03/22 [Rx Last Taken Unknown] ondansetron 4 mg disintegrating tablet 4 mg PO Q8H PRN PRN Nausea #10 tabs 08/03/22 [Rx Last Taken Unknown] Allergy/AdvReac Type Severity Reaction Status Date / Time latex Allergy Hives Verified 07/25/22 09:18 Family History Other Diabetes Heart disease Surgical History History of cholecystectomy Social History household members: spouse and children housing: house Smoking Status: Current every day smoker tobacco type: cigarettes alcohol intake: never what type of physical activity do you participate in: none do you feel safe at home: Yes ROS <GLENN Ruelas - Last Filed: 08/03/22 17:13> ROS ED ROS Narrative Constitutional: Negative for fever, chills, weight loss, weakness Eyes: Negative for vision loss, vision change, double vision ENT: Negative for any sore throat, ear pain, congestion Cardiovascular: Negative for any tightness, palpitations. Positive chest pain Respiratory: Negative for any cough, sputum production, hemoptysis, dyspnea, dyspnea on exertion, orthopnea Gastrointestinal: Negative for any diarrhea, constipation, blood in stool, blood in vomit. Positive for abdominal pain, nausea and vomiting : Negative for any urinary frequency, dysuria, retention, blood in urine Muscle skeletal: Negative for any muscle joint pain, stiffness, myalgias, arthralgias, neck pain, back pain Neurological: Negative for any headache, syncope, numbness or tingling, dizziness Skin: Negative for any rashes, lumps, itching, abrasions, lacerations Psychiatric: Negative for any depression, anxiety, stress, suicidal ideation, homicidal ideation Hematologic: Negative for any easy bruising, excessive bruising, easy bleeding Allergies: Negative for any eczema, hives, rash EXAM <GLENN Ruelas - Last Filed: 08/03/22 17:13> Physical Exam Narrative Exam Narrative: Vital signs reviewed. Patient was difficult to access, patient continued just to yell that she is hurting. She was a poor informant. HEET: Head normocephalic atraumatic, TMs clear bilaterally. Posterior pharynx is clear, moist mucous membranes. Nares clear bilaterally. Neck: Supple with no lymphadenopathy or tenderness. No signs of meningismus, negative jolt sign. Cardiac: Tachycardic rate no murmurs gallops or rubs, equal peripheral pulses bilaterally. Respiratory: Lungs clear to auscultation bilaterally. No chest tenderness. Abdomen: Soft, nondistended. No abdominal bruit or pulsatile masses. No hepatosplenomegaly. Patient had pain to the left lower quadrant. Extremities: No peripheral edema, no signs of gross trauma or deformity. Active full range of motion of all extremities. Neuro: Cranial nerves II through XII intact, no focal neurological deficits. Skin: Clean dry and intact with no rash, purpura, petechiae, vesicles or pustules. Backs/flank: No CVA tenderness, no midline spinal tenderness, no deformity. Psych: Normal mood and affect. No SI, HI or acute psychosis. Const Vital Signs: 08/03/22 12:19 08/03/22 13:40 08/03/22 16:26 Temperature 97.7 F L Temperature Source Oral Pulse Rate 112 H 128 H 107 H Respiratory Rate 18 16 18 Blood Pressure 132/83 H 156/106 H 114/74 Blood Pressure Mean 99 122 87 Pulse Ox 100 97 94 Oxygen Delivery Method Room Air Room Air Room Air <Dr. Riccardo Hillman DO - Last Filed: 08/04/22 10:09> Physical Exam Const Vital Signs: 08/03/22 12:19 08/03/22 13:40 08/03/22 16:26 Temperature 97.7 F L Temperature Source Oral Pulse Rate 112 H 128 H 107 H Respiratory Rate 18 16 18 Blood Pressure 132/83 H 156/106 H 114/74 Blood Pressure Mean 99 122 87 Pulse Ox 100 97 94 Oxygen Delivery Method Room Air Room Air Room Air [facility] <GLENN Ruelas - Last Filed: 08/03/22 17:13> [facility] Lab Data Labs: Laboratory Results - last 24 hr 08/03/22 08/03/22 08/03/22 13:20 13:20 14:40 WBC 12.4 H RBC 5.73 H Hgb 16.2 H Hct 48.4 H MCV 84.5 MCH 28.3 MCHC 33.5 RDW Std Deviation 37.5 RDW Coeff of Spencer 12.3 Plt Count 233 MPV 9.9 Immature Gran % (Auto) 0.400 Neut % (Auto) 87.4 H Lymph % (Auto) 8.0 L [place] % (Auto) 3.2 Eos % (Auto) 0.4 Baso % (Auto) 0.6 Absolute Neuts (auto) 10.8 H Absolute Lymphs (auto) 0.99 Nucleated RBC % 0 Sodium 135 L Potassium 4.5 Chloride 99 Carbon Dioxide 27.0 Anion Gap 9 BUN 10 Creatinine 0.64 Estim Creat Clear Calc 102.27 Est GFR (MDRD) Af Amer 126 Est GFR (MDRD) Non-Af 104 BUN/Creatinine Ratio 15.6 Glucose 270 H Calcium 9.4 Total Bilirubin 1.10 H AST 15 ALT 15 Alkaline Phosphatase 120 H Troponin I High Sens 12 Total Protein 7.6 Albumin 3.1 L Globulin 4.5 H Albumin/Globulin Ratio 0.7 L Lipase 68 L Urine Color Yellow Urine Clarity Clear Urine pH 7.0 Ur Specific [place] 1.010 Urine Protein 100 H Urine Glucose (UA) 1000 H Urine Ketones 15 H Urine Occult Blood 50 H Urine Nitrite Negative Urine Bilirubin Negative Urine Urobilinogen Normal Ur Leukocyte Esterase 100 H Urine RBC 0-5 SEEN Urine WBC 0-5 SEEN Ur Squamous Epith Cells 0-5 SEEN Urine Bacteria 0 SEEN Urine Mucus 0 SEEN 08/03/22 15:45 WBC RBC Hgb Hct MCV MCH MCHC RDW Std Deviation RDW Coeff of [place] Plt Count MPV Immature Gran % (Auto) Neut % (Auto) Lymph % (Auto) [place] % (Auto) Eos % (Auto) Baso % (Auto) Absolute Neuts (auto) Absolute Lymphs (auto) Nucleated RBC % Sodium Potassium Chloride Carbon Dioxide Anion Gap BUN Creatinine Estim Creat Clear Calc Est GFR (MDRD) Af Amer Est GFR (MDRD) Non-Af BUN/Creatinine Ratio Glucose Calcium Total Bilirubin AST ALT Alkaline Phosphatase Troponin I High Sens 12 Total Protein Albumin Globulin Albumin/Globulin Ratio Lipase Urine Color Urine Clarity Urine pH Ur Specific [place] Urine Protein Urine Glucose (UA) Urine Ketones Urine Occult Blood Urine Nitrite Urine Bilirubin Urine Urobilinogen Ur Leukocyte Esterase Urine RBC Urine WBC Ur Squamous Epith Cells Urine Bacteria Urine Mucus Radiography Diagnostic Testing: Clinical Impression(s) from Imaging Studies Chest X-Ray 08/03/22 13:50 IMPRESSION: No acute abnormality is seen. Electronically Signed: Ryan Tejeda MD at 14:10 EST , Abdomen/Pelvis CT 08/03/22 14:18 IMPRESSION: Distention of the stomach with the findings suggestive of thickening of the distal stomach and first portion of the duodenum. Findings suggestive of a colitis of the descending colon and hepatic flexure. Small pericardial effusion. This is unchanged. Electronically Signed: Ryan Tejeda MD at 14:45 EST , Differential Diagnosis Abdominal Pain: Appendicitis, Cholecystitis, Pancreatitis and Bowel obstruction Treatment and Re-Evaluation :: I have personally performed a face to face assessment of the patient and have reviewed the JANICE Note. I performed a substantive portion of the visit including all aspects of the following. My jones findings include: History: Patient presents with chest pain that began today. Patient states it has been constant. Patient describes it as a tightness. Patient states nothing makes it better nothing makes it worse. Patient admits to some shortness of breath with this. Patient denies any diaphoresis. Patient admits to upper abdominal pain as well. Patient admits to some nausea but denies any vomiting. Patient denies any fevers or chills. Exam: Vital signs are stable except for mild tachycardia of 112. Patient is afebrile. Patient is in no acute distress. Oral mucosa is pink and moist. Patient is edentulous. Neck is supple. Trachea is midline. There is no JVD. Heart was regular rate and rhythm. Lungs are clear and equal bilaterally. Abdomen is soft. Bowel sounds are normal. There is no tenderness. Cranial nerves II through XII are intact. There are no focal motor or sensory deficits noted. Medical Decision Making: Differential diagnosis includes cardiac ischemia, cardiac dysrhythmia, pneumonia, pneumothorax, and musculoskeletal chest pain. EKG will be obtained to assess for cardiac dysrhythmia and cardiac ischemia. CBC will be obtained to assess for anemia and leukocytosis. Comprehensive metabolic profile will be obtained to assess for hepatic function, renal function, and electrolyte abnormality. Lipase will be obtained to assess for pancreatitis. High-sensitivity troponin will be obtained to assess for cardiac ischemia. [id number] high-sensitivity troponin will be obtained to further assess ongoing cardiac ischemia. Chest x-ray will be obtained to assess for pneumonia and pneumothorax. CT scan of the abdomen and pelvis will be obtained to assess for bowel obstruction and perforation and pancreatitis. EKG was obtained. On my interpretation, there is normal sinus rhythm. There are no acute ST or T wave changes noted. Portable 1 view chest x-ray was obtained. On my independent interpretation, lung stephens are clear. There is normal cardiac silhouette. Bony thorax is normal. There is no acute process noted. Radiologist also interpreted the x-ray and agrees. CBC was reviewed and shows a mild leukocytosis of 12.4. Comprehensive metabolic profile was reviewed and was essentially within normal limits. Urinalysis was reviewed. There is no evidence of urinary tract infection or hematuria. Portable 1 view chest x-ray was obtained. On my independent interpretation, lung stephens are clear. There is normal cardiac silhouette. Bony thorax is normal. There is no acute process noted. Radiologist also interpreted the x-ray and agrees. CT scan of the abdomen pelvis was reviewed. There is distention of the stomach and thickening of the distal stomach and proximal duodenum. There are findings suggestive of colitis in the ascending colon and hepatic flexure. This was interpreted by the radiologist and was also independently reviewed by myself. All radiologic examinations were read, reviewed by the emergency department attending. From these reads, a plan of care will be put in place. Patient presents the emergency department for abdominal pain, nausea, vomiting, as well as chest pain. Patient did receive a full abdominal work-up, patient also received a chest pain work-up secondary to the complaints of chest pain. She will receive a further abdominal work-up today secondary to this being her second visit in 2 weeks for the same. Patient's laboratory values showed a slight elevation in her white blood count at 12.9. Patient is hemoconcentrated with hemoglobin of 16.2, hematocrit of 48.4, this is consistent with the patient since May 2022. Patient's sodium was unremarkable, patient's blood glucose was 270 which is baseline. Patient's alkaline phosphatase was under and 20 however she usually runs from 1 80-1 40. Patient did receive 2 troponins which were negative. EKG was unremarkable. Patient CT scan of the abdomen pelvis shows distention of the stomach with the finding suggestive of thickening of the distal stomach and first portion of the duodenum. Suggestive of colitis in the descending colon and hepatic flexure. A small pericardial effusion that is unchanged. At this time, is no evidence suspect any bowel obstruction, appendicitis, cholecystitis. There is no surgical intervention needed. Patient after 2 rounds of IV Zofran, morphine, IV fluids, patient states to feel better. Patient on reassessment was able to drink by mouth fluids. She will follow-up outpatient. Patient stable for discharge <Dr. Riccardo Hillman, DO - Last Filed: 08/04/22 10:09> [facility] Lab Data Labs: Laboratory Results - last 24 hr 08/03/22 08/03/22 08/03/22 13:20 13:20 14:40 WBC 12.4 H RBC 5.73 H Hgb 16.2 H Hct 48.4 H MCV 84.5 MCH 28.3 MCHC 33.5 RDW Std Deviation 37.5 RDW Coeff of [place] 12.3 Plt Count 233 MPV 9.9 Immature Gran % (Auto) 0.400 Neut % (Auto) 87.4 H Lymph % (Auto) 8.0 L [place] % (Auto) 3.2 Eos % (Auto) 0.4 Baso % (Auto) 0.6 Absolute Neuts (auto) 10.8 H Absolute Lymphs (auto) 0.99 Nucleated RBC % 0 Sodium 135 L Potassium 4.5 Chloride 99 Carbon Dioxide 27.0 Anion Gap 9 BUN 10 Creatinine 0.64 Estim Creat Clear Calc 102.27 Est GFR (MDRD) Af Amer 126 Est GFR (MDRD) Non-Af 104 BUN/Creatinine Ratio 15.6 Glucose 270 H Calcium 9.4 Total Bilirubin 1.10 H AST 15 ALT 15 Alkaline Phosphatase 120 H Troponin I High Sens 12 Total Protein 7.6 Albumin 3.1 L Globulin 4.5 H Albumin/Globulin Ratio 0.7 L Lipase 68 L Urine Color Yellow Urine Clarity Clear Urine pH 7.0 Ur Specific [place] 1.010 Urine Protein 100 H Urine Glucose (UA) 1000 H Urine Ketones 15 H Urine Occult Blood 50 H Urine Nitrite Negative Urine Bilirubin Negative Urine Urobilinogen Normal Ur Leukocyte Esterase 100 H Urine RBC 0-5 SEEN Urine WBC 0-5 SEEN Ur Squamous Epith Cells 0-5 SEEN Urine Bacteria 0 SEEN Urine Mucus 0 SEEN 08/03/22 15:45 WBC RBC Hgb Hct MCV MCH MCHC RDW Std Deviation RDW Coeff of [place] Plt Count MPV Immature Gran % (Auto) Neut % (Auto) Lymph % (Auto) [place] % (Auto) Eos % (Auto) Baso % (Auto) Absolute Neuts (auto) Absolute Lymphs (auto) Nucleated RBC % Sodium Potassium Chloride Carbon Dioxide Anion Gap BUN Creatinine Estim Creat Clear Calc Est GFR (MDRD) Af Amer Est GFR (MDRD) Non-Af BUN/Creatinine Ratio Glucose Calcium Total Bilirubin AST ALT Alkaline Phosphatase Troponin I High Sens 12 Total Protein Albumin Globulin Albumin/Globulin Ratio Lipase Urine Color Urine Clarity Urine pH Ur Specific [place] Urine Protein Urine Glucose (UA) Urine Ketones Urine Occult Blood Urine Nitrite Urine Bilirubin Urine Urobilinogen Ur Leukocyte Esterase Urine RBC Urine WBC Ur Squamous Epith Cells Urine Bacteria Urine Mucus Radiography Diagnostic Testing: Clinical Impression(s) from Imaging Studies Chest X-Ray 08/03/22 13:50 IMPRESSION: No acute abnormality is seen. Electronically Signed: Ryan Tejeda MD at 14:10 EST , Abdomen/Pelvis CT 08/03/22 14:18 IMPRESSION: Distention of the stomach with the findings suggestive of thickening of the distal stomach and first portion of the duodenum. Findings suggestive of a colitis of the descending colon and hepatic flexure. Small pericardial effusion. This is unchanged. Electronically Signed: Ryan Tejeda MD at 14:45 EST , Treatment and Re-Evaluation :: I have personally performed a face to face assessment of the patient and have reviewed the JANICE Note. I performed a substantive portion of the visit including all aspects of the following. My jones findings include: History: Patient presents with chest pain that began today. Patient states it has been constant. Patient describes it as a tightness. Patient states nothing makes it better nothing makes it worse. Patient admits to some shortness of breath with this. Patient denies any diaphoresis. Patient admits to upper abdominal pain as well. Patient admits to some nausea but denies any vomiting. Patient denies any fevers or chills. Exam: Vital signs are stable except for mild tachycardia of 112. Patient is afebrile. Patient is in no acute distress. Oral mucosa is pink and moist. Patient is edentulous. Neck is supple. Trachea is midline. There is no JVD. Heart was regular rate and rhythm. Lungs are clear and equal bilaterally. Abdomen is soft. Bowel sounds are normal. There is no tenderness. Cranial nerves II through XII are intact. There are no focal motor or sensory deficits noted. Medical Decision Making: Differential diagnosis includes cardiac ischemia, cardiac dysrhythmia, pneumonia, pneumothorax, and musculoskeletal chest pain. EKG will be obtained to assess for cardiac dysrhythmia and cardiac ischemia. CBC will be obtained to assess for anemia and leukocytosis. Comprehensive metabolic profile will be obtained to assess for hepatic function, renal function, and electrolyte abnormality. Lipase will be obtained to assess for pancreatitis. High-sensitivity troponin will be obtained to assess for cardiac ischemia. [id number] high-sensitivity troponin will be obtained to further assess ongoing cardiac ischemia. Chest x-ray will be obtained to assess for pneumonia and pneumothorax. CT scan of the abdomen and pelvis will be obtained to assess for bowel obstruction and perforation and pancreatitis. EKG was obtained. On my interpretation, there is normal sinus rhythm. There are no acute ST or T wave changes noted. Portable 1 view chest x-ray was obtained. On my independent interpretation, lung stephens are clear. There is normal cardiac silhouette. Bony thorax is normal. There is no acute process noted. Radiologist also interpreted the x-ray and agrees. CBC was reviewed and shows a mild leukocytosis of 12.4. Comprehensive metabolic profile was reviewed and was essentially within normal limits. Urinalysis was reviewed. There is no evidence of urinary tract infection or hematuria. Portable 1 view chest x-ray was obtained. On my independent interpretation, lung stephens are clear. There is normal cardiac silhouette. Bony thorax is normal. There is no acute process noted. Radiologist also interpreted the x-ray and agrees. CT scan of the abdomen pelvis was reviewed. There is distention of the stomach and thickening of the distal stomach and proximal duodenum. There are findings suggestive of colitis in the ascending colon and hepatic flexure. This was interpreted by the radiologist and was also independently reviewed by myself. 2-hour repeat high- sensitivity troponin was reviewed and was normal. Patient is stable for discharge. Patient was instructed to follow-up with her primary care physician in 5 to 7 days. Patient understood and was agreeable with the plan. All questions were answered. All radiologic examinations were read, reviewed by the emergency department attending. From these reads, a plan of care will be put in place. Patient presents the emergency department for abdominal pain, nausea, vomiting, as well as chest pain. Patient did receive a full abdominal work-up, patient also received a chest pain work-up secondary to the complaints of chest pain. She will receive a further abdominal work-up today secondary to this being her second visit in 2 weeks for the same. Patient's laboratory values showed a slight elevation in her white blood count at 12.9. Patient is hemoconcentrated with hemoglobin of 16.2, hematocrit of 48.4, this is consistent with the patient since May 2022. Patient's sodium was unremarkable, patient's blood glucose was 270 which is baseline. Patient's alkaline phosphatase was under and 20 however she usually runs from 1 80-1 40. Patient did receive 2 troponins which were negative. EKG was unremarkable. Patient CT scan of the abdomen pelvis shows distention of the stomach with the finding suggestive of thickening of the distal stomach and first portion of the duodenum. Suggestive of colitis in the descending colon and hepatic flexure. A small pericardial effusion that is unchanged. At this time, is no evidence suspect any bowel obstruction, appendicitis, cholecystitis. There is no surgical intervention needed. Patient after 2 rounds of IV Zofran, morphine, IV fluids, patient states to feel better. Patient on reassessment was able to drink by mouth fluids. She will follow-up outpatient. Patient stable for discharge Discharge Plan Triage Chief Complaint: Chest Pain Other Complaint: Nausea/Vomiting/Diarrhea ED Midlevel Provider: Vidal Solorio ED Provider: Riccardo Hillman Dx/Rx/DC Orders Clinical Impression: Chest pain, Colitis, Abdominal pain, Nausea & vomiting Instructions: ED Understanding Colitis, ED Vomiting (Adult) Prescriptions: New ondansetron 4 mg tablet,disintegrating 4 mg PO Q8H PRN PRN (Reason: Nausea) Qty: 10 0RF dicyclomine 20 mg tablet 20 mg PO BID Qty: 14 0RF No Action ondansetron 4 mg tablet,disintegrating 4 mg PO Q6H PRN (Reason: nausea and vomiting) Qty: 20 0RF alendronate 70 mg tablet 70 mg PO WE Label Comments: take one tablet weekly cholecalciferol (vitamin D3) 25 mcg (1,000 unit) tablet 1,000 unit PO DAILY Label Comments: TAKE 1 TABLET DAILY insulin glargine [Lantus Solostar U-100 Insulin] 100 unit/mL (3 mL) insulin pen 10 units subcut BID omeprazole 40 mg capsule,delayed release(DR/EC) 40 mg PO DAILY Qty: 30 0RF Primary Care Provider: Ama Neff Referrals: Ama Neff [Primary Care Provider] - Disposition Disposition: Home, Self Care Discharge Date/Time: 08/03/22 18:35
[2022-08-03 13:34] LABS: Absolute Lymphocyte Count 0.99 X10^3/uL (0.83-4.51); Absolute Neutrophil Count 10.8 X10^3/uL (2.0-7.7); Basophil# 0.08 X10^3/uL; Basophil% 0.6 % (0-1); Eosinophil# 0.05 X10^3/uL; Eosinophils% 0.4 % (0-5); Hematocrit 48.4 % (37-47); Hemoglobin 16.2 g/dL (12.0-15.0); Lymphocyte # 0.99 X10^3/ul (0.83-4.51); Mean Corp Hgb Conc 33.5 g/dL (32-36); Mean Corpuscular Hgb 28.3 pg (27.0-32.0); Mean Corpuscular Volume 84.5 fL (81-99); Mean Platelet Vol. 9.9 fl (6.2-12.0); Monocyte% 3.2 % (0-10); NRBC Flagged by Analyzer 0 % (0-5); Neutrophil # 10.78 X10^3/uL (2.7-7.7); Neutrophil % 87.4 % (47-70); Platelet Count 233 K/mm3 (150-450); RBC Distribution Width CV 12.3 % (11.6-14.6); RBC Distribution Width SD 37.5 fl (35.1-43.9); Red Blood Count 5.73 M/mm3 (4.2-5.4); White Blood Count 12.4 K/mm3 (4.4-11.0)
[2022-08-03] MEDS: Ondansetron 4 MG/2 ML Vial IV ×2 (13:37→15:19)
[2022-08-03] MEDS: 0.9% Normal Saline 1,000 ML 1000 ML IV (13:37)
[2022-08-03] MEDS: Morphine 4 MG/ML Syringe IV ×2 (13:37→15:19)
[2022-08-03 13:40] VITALS: BP 156/106; PULSE 128; RESP 16; O2SAT 97
--- NOTE | 2022-08-03 13:50 | RAD_ITS ---
STUDY: X-RAY CHEST REASON FOR EXAM: Female, 51 years old. Chest pain TECHNIQUE: Single AP portable view of the chest. COMPARISON: Comparison is made with prior study dated August 26, 2021. FINDINGS: EKG electrodes are seen. The lungs are clear and expanded. There is no demonstrated pleural abnormality. Normal size heart. Normal mediastinum and edmundo. Normal visualized pulmonary arteries. Normal visualized aortic arch and descending thoracic aorta. There are degenerative changes of the visualized thoracic spine. Healed transverse fracture of the proximal humerus. There is no demonstrated abnormality of the visualized soft tissue structures of the upper abdomen. RAD/Chest 1 View (Portable) IMPRESSION: No acute abnormality is seen. Electronically Signed: Ryan Tejeda MD at 14:10 EST ,
[2022-08-03 13:55] LABS: ALB/GLOB Ratio 0.7 RATIO (0.9-2.4); AST(SGOT) 15 U/L (15-37); Alanine Aminotransfer ALT/SGPT 15 U/L (13-56); Albumin, Serum 3.1 g/dL (3.2-5.0); Alkaline Phosphatase 120 U/L (45-117); Anion Gap 9 (5-15); BUN 10 mg/dL (7-18); BUN/Creat Ratio 15.6 RATIO (10-20); Calcium,Total 9.4 mg/dL (8.5-10.1); Chloride 99 mmol/L (98-107); Creatinine, Serum 0.64 mg/dL (0.55-1.02); EST Glomerular Filtration Rate 104 mL/min (>60); Est Glom Filt Rate - Afr Amer 126 mL/min (>60); Estimated Creatinine Clearance 102.27 ml/min; Globulin 4.5 g/dL (2.2-4.2); Glucose 270 mg/dL (74-106); Lipase 68 U/L (73-393); Potassium 4.5 mmol/L (3.5-5.1); Protein, Total 7.6 g/dL (6.4-8.2); Sodium Level 135 mmol/L (136-145); Troponin-I HS (w/2H Reflex) 12 pg/mL (3.0-54.0)
--- NOTE | 2022-08-03 14:18 | CT_ITS ---
STUDY: CT ABDOMEN AND PELVIS WITH CONTRAST REASON FOR EXAM: Female, 51 years old. Abdominal pain RADIATION DOSAGE (If Supplied By Facility): CTDIvol = ( 15.40 ) mGy, DLP = ( 995.30 ) mGycm TECHNIQUE: Transaxial images were obtained from the dome of the diaphragm to the symphysis pubis without oral contrast. IV 100mL Isovue-300 was administered. Sagittal and coronal images were reconstructed. Individualized dose optimization techniques were used for this CT. COMPARISON: Comparison is made with prior study dated August 26, 2021. FINDINGS: The visualized lung bases are unremarkable. Stable small pericardial effusion. Coronary artery calcification. Stable 1.6 cm hypodense nodule in the upper lateral aspect of the right lobe of liver. This is suggestive of an hemangioma. Mild increased vascularity seen along its periphery. There are surgical clips in the gallbladder fossa consistent with a prior cholecystectomy. Normal spleen. There is diffuse atrophy of the pancreas. Normal bilateral adrenal glands. Normal right kidney. 2.1 cm cyst in the upper lateral aspect of the left kidney. Fluid distention of the stomach. Findings suggestive of a thickening of the wall of the distal stomach and the first portion of the duodenum. Normal small intestine. Findings suggestive of colitis of the descending colon and hepatic flexure. There are surgical clips in the region of the appendix consistent with a prior appendectomy. There is scattered atherosclerotic calcification of the abdominal aorta and its major visceral branches, without a demonstrated aneurysm. Normal inferior vena cava. Normal retroperitoneum. Normal urinary bladder. Calcified injection granulomas in the left. Normal osseous structures. CT/Abdomen/Pelvis W IV Cont ONLY IMPRESSION: Distention of the stomach with the findings suggestive of thickening of the distal stomach and first portion of the duodenum. Findings suggestive of a colitis of the descending colon and hepatic flexure. Small pericardial effusion. This is unchanged. Electronically Signed: Ryan Tejeda MD at 14:45 EST ,
[2022-08-03 14:46] LABS: Bacteria 0 SEEN /hpf (None Seen); Mucous, Urine 0 SEEN /hpf (<or=2+)
[2022-08-03 14:50] LABS: Color, Urine Yellow (Yellow); Glucose, Dipstick 1000 mg/dl (Normal); Ketone-Dipstick 15 mg/dl (Negative); Leukocyte Esterase-Dipstick 100 /ul (Negative); Nitrite-Dipstick Negative (Negative); Occult Blood-Urine 50 /ul (Negative); Protein-Dipstick 100 mg/dl (Negative); Urine Bilirubin Dipstick Negative (Negative); Urine Clarity Clear (Clear); Urine Urobilinogen Normal (Normal)
[2022-08-03 15:07] LABS: Red Blood Cells-Urine 0-5 SEEN /hpf (0-5); Squamous Epithelial Cells - UA 0-5 SEEN /hpf (5-10); White Blood Cells 0-5 SEEN /hpf (0-5)
[2022-08-03 15:33] LABS: Reflex Troponin-HS? (from REC) Y
[2022-08-03 16:20] LABS: Troponin-I HS 12 pg/mL (3.0-54.0)
[2022-08-03 16:26] VITALS: BP 114/74; PULSE 107; RESP 18; O2SAT 94
[2022-08-03] MEDS: Ondansetron ODT 4 MG Tablet PO (18:19)
--- NOTE | 2022-08-03 18:34 | ED.RN ---
PT REQUIRED PO ZOFRAN PRIOR TO D/C. PT WAS ACCIDENTALLY TAKEN OUT OF THE SYSTEM PRIOR TO ORDER. HENCE THE CHARTING TIME DIFFERENCE
== END 2022-08-03 18:35 | disposition home or self-care (01) ==
PROVIDERS: Nurse Practitioner; Emergency Provider Emergency Medicine; Visit Provider Emergency Medicine
DX: R07.9 Chest pain, unspecified (principal); I11.0 Hypertensive heart disease with heart failure; I50.9 Heart failure, unspecified; E11.9 Type 2 diabetes mellitus without complications; Z79.4 Long term (current) use of insulin; K52.9 Noninfective gastroenteritis and colitis, unspecified; E78.5 Hyperlipidemia, unspecified; I25.10 Atherosclerotic heart disease of native coronary artery without angina pectoris; F17.210 Nicotine dependence, cigarettes, uncomplicated
CPT/HCPCS: 71045; 74177; 80053; 81001; 83690; 84484; 85025; 93005; 96361; 96374; 96375; 96376; 99285; J7030; Q9967; A4216; J2405

== ENCOUNTER 2022-08-06 14:42 | Emergency (ER) | payer MEDICAID, SELFPAY ==
[2022-08-06 14:43] VITALS: BP 106/81; PULSE 119; RESP 14; TEMP 36.6; O2SAT 99; BMI 24.2
--- NOTE | 2022-08-06 15:06 | EX.ED.DYSGE1 ---
HPI <MARTIN Reyes - Last Filed: 08/06/22 17:25> History of Present Illness Chief Complaint: Constipation Narrative Narrative: 51-year-old female is here with 2 complaints. The first is constipation x3 days. She has been taking stool softeners and liquid laxative drink but developed decreased appetite and abdominal pain today. She has been having loose watery stool, out and is wearing a pad. She manually disimpacted a few pieces of stool today and is passing some gas. She has no history of obstruction. Surgical history includes x1 and cholecystectomy. Her secondary complaint is 3 days ago she noticed her right toes looked dark. She thought it was a bruise but it has persisted and became painful today. She denies history of peripheral arterial disease. She has had her left toes amputated due to osteomyelitis. [facility] <MARTIN Reyes - Last Filed: 08/06/22 17:25> [facility] Medical History CAD (coronary artery disease), [place] coronary artery CHF (congestive heart failure) Diabetes mellitus, type 2 GERD (gastroesophageal reflux disease) HTN (hypertension) Hx of fracture of humerus Hyperlipidemia Toe amputee Home Medications ondansetron 4 mg disintegrating tablet 4 mg PO Q6H PRN nausea and vomiting #20 tabs 05/19/22 [Rx Last Taken Unknown] alendronate 70 mg tablet 70 mg PO WE 07/25/22 [History Last Taken Unknown] cholecalciferol (vitamin D3) 25 mcg (1,000 unit) tablet 1,000 unit PO DAILY 07/25/22 [History Last Taken Unknown] insulin glargine 100 unit/mL (3 mL) subcutaneous pen (Lantus Solostar U-100 Insulin) 10 units subcut BID 07/25/22 [History Last Taken Unknown] omeprazole 40 mg capsule,delayed release 40 mg PO DAILY #30 caps 07/25/22 [Rx Last Taken Unknown] dicyclomine 20 mg tablet 20 mg PO BID #14 tabs 08/03/22 [Rx Last Taken Unknown] ondansetron 4 mg disintegrating tablet 4 mg PO Q8H PRN PRN Nausea #10 tabs 08/03/22 [Rx Last Taken Unknown] Allergy/AdvReac Type Severity Reaction Status Date / Time latex Allergy Hives Verified 08/06/22 14:43 Family History Other Diabetes Heart disease Surgical History History of cholecystectomy Social History household members: spouse and children housing: house Smoking Status: Current every day smoker tobacco type: cigarettes alcohol intake: never what type of physical activity do you participate in: none do you feel safe at home: Yes ROS <MARTIN Reyes - Last Filed: 08/06/22 17:25> ROS ED ROS Narrative Constitutional: Negative for fever, chills, malaise. ENT: Negative for sore throat, ear pain, rhinorrhea. CVS: Negative for palpitations, chest pain, syncope. Respiratory: Negative for shortness of breath, cough, orthopnea. GI: Positive for abdominal pain, nausea, constipation. Negative for melena, hematochezia. : Negative for dysuria. Neuro: Negative for motor/sensory dysfunction. Skin: Negative for rash, abscess, or wound. Musc: Positive for right foot pain. No swelling or trauma. Heme: Negative for easy bruising, bleeding, lymphadenopathy. EXAM <MARTIN Reyes - Last Filed: 08/06/22 17:25> Physical Exam Narrative Exam Narrative: CONST: Patient sitting in no acute distress. EYES: Normal inspection. ENT: Normal inspection, moist mucous membranes. NECK: Normal inspection. RESP: No respiratory distress, CTAB. CVS: Regular rate and rhythm, no murmur, no gallop. ABD: Soft with mild generalized tenderness, no guarding or rebound, nondistended. Rectal exam: Rectal vault full of soft stool, small nonbleeding nonthrombosed external hemorrhoids. SKIN: Skin warm, dry, intact. EXTREMITIES: No lower extremity pedal edema, right first second and third toes are dusky and the foot has delayed capillary refill. It is warm to touch. No palpable pulses but with Doppler there are PT/DP pulses present. Full range of motion, sensation intact in all dermatomes, compartments soft. Prior amputation of all toes on the left foot. NEURO: Oriented x4. PSYCH: Normal affect. Const Vital Signs: 03/05/23 14:43 08/06/22 16:45 Temperature 98 F 97.8 F Temperature Source Temporal Temporal Pulse Rate 119 H 76 Respiratory Rate 14 16 Blood Pressure 106/81 H 143/78 H Blood Pressure Mean 89 99 Pulse Ox 99 99 Oxygen Delivery Method Room Air Room Air <Dr. Ananda Coyle MD - Last Filed: 08/06/22 15:41> Physical Exam Const Vital Signs: 08/06/22 14:43 08/06/22 16:45 Temperature 98 F 97.8 F Temperature Source Temporal Temporal Pulse Rate 119 H 76 Respiratory Rate 14 16 Blood Pressure 106/81 H 143/78 H Blood Pressure Mean 89 99 Pulse Ox 99 99 Oxygen Delivery Method Room Air Room Air MDM <MARTIN Reyes - Last Filed: 08/06/22 17:25> MDM MDM Narrative Medical decision making narrative: History gathered from: Patient and mom Patient has constipation and abdominal pain. She also has pain and duskiness in her right toes. She appears well and nontoxic. Heart rate 119, BP 106/81, otherwise normal vital signs. She does not appear septic. Her abdomen is soft, nondistended, generalized tenderness. Rectal exam had soft stool in the vault. I manually disimpacted small amount of stool and then she wanted to stop the exam and requested an enema. The first second and third toes on her right lower extremity are dusky and there is significantly delayed capillary refill. I cannot feel a palpable pulse but distal pulses are intact with Doppler. She denies history of PAD but does smoke 1 PPD x37 years. With concern for limb ischemia a CTA abdomen with runoffs will be obtained. This will also evaluate her constipation. With her benign abdominal exam I have low concern for SBO but this will be ruled out. CTA shows stool throughout the colon and rectum but no obstruction. 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 She should continue stool softeners or MiraLAX as needed. The CTA also showed significant stenosis in both lower extremities but there is reconstitution of the right leg. I considered admission but since pulses are present I think she can follow-up in the vascular surgery office this week. She was told to return if any symptoms worsen. I recommended taking Tylenol Motrin for her pain and did not want to prescribe narcotics with her significant constipation. She was agreeable with this plan and discharged in stable condition. I have personally performed a face to face assessment of the patient and have reviewed the JANICE Note. I performed a substantive portion of the visit including all aspects of the following. My jones findings include: History is [51-year-old female history of osteomyelitis where she had all the toes on 1 foot amputated. Presents with 2 complaints. 1 constipation. 2 discoloration to her great second and third toes on her left foot. Mild discomfort. History of peripheral arterial disease.] Exam is [51-year-old female no acute distress. Vital signs are stable and afebrile. H EENT exam unremarkable. Neck nontender. Lungs are clear. Heart regular rhythm rate about 100 no murmur. Abdomen soft nontender. Normal bowel sounds no peritoneal signs. No pulsatile mass. Patient moving all 4 extremities. All the toes have been amputated when flexed. The other foot has bluish discoloration of the great second and third toe. Foot however is warm to the touch. She has normal touch sensation. She is able to wiggle her toes. Calf is nontender. No edema or cords. Normal range of motion to the hip, knee ankle and foot.] Medical Decision Making [patient with constipation. Other complaint is discoloration and bluish nests of 3 toes and 1 foot. Concern for peripheral arterial disease. CTA with runoff will be obtained along with labs.] Other additions or changes: [None] Lab Data Labs: Laboratory Results - last 24 hr 08/06/22 08/06/22 15:15 15:15 WBC 8.7 RBC 5.62 H Hgb 15.7 H Hct 48.1 H MCV 85.6 MCH 27.9 MCHC 32.6 RDW Std Deviation 38.5 RDW Coeff of Spencer 12.2 Plt Count 269 MPV 9.4 Immature Gran % (Auto) 0.300 Neut % (Auto) 74.5 H Lymph % (Auto) 16.8 L Whitman % (Auto) 6.9 Eos % (Auto) 0.7 Baso % (Auto) 0.8 Absolute Neuts (auto) 6.5 Absolute Lymphs (auto) 1.46 Nucleated RBC % 0 Sodium 136 Potassium 3.5 Chloride 101 Carbon Dioxide 29.0 Anion Gap 6 BUN 8 Creatinine 0.77 Estim Creat Clear Calc 85.00 Est GFR (MDRD) Af Amer 101 Est GFR (MDRD) Non-Af 84 BUN/Creatinine Ratio 10.4 Glucose 290 H Calcium 9.0 Radiography Diagnostic Testing: Clinical Impression(s) from Imaging Studies Abdomen/Pelvis CTA 08/06/22 15:13 IMPRESSION: (NOT LISTED IN ORDER OF SIGNIFICANCE) Stable 1.6 cm hypodense nodule in the upper lateral aspect of the right lobe of liver. ACR White Paper guidelines (Andrzej, et al. JACR 2017; 14(11):1666-0267.) suggest the following. For patients with low risk of malignancy, recommend hepatic MR. For patients with high risk of malignancy (known malignancy with a propensity to metastasize to the liver, cirrhosis, and/or other hepatic risk factors), recommend hepatic MR or core biopsy. Left patellar fracture. Age indeterminate. However, there is no joint effusion making the finding likely old. Right renal artery(arteries): There is moderate diffuse narrowing. Right posterior tibial artery: Multilevel severe stenosis of the artery. Right peroneal artery: There is an occlusion in the artery but with distal reconstitution. Left renal artery(arteries): There is severe diffuse narrowing. Left anterior tibial artery: There is severe diffuse narrowing, with visualization of the vessel to the distal calf. Left posterior tibial artery: Multilevel severe stenosis of the artery. Left peroneal artery: There is severe diffuse narrowing, with visualization of the vessel to the distal calf. Constipation. Gastritis. Patients colitis has resolved. Electronically Signed: Sebastien Mireles MD at 16:14 EST Reading Location ID and State: [facility] [place] / [place] , Service support , ED attending interpretation of CTA abdomen/pelvis shows stool throughout the colon and large amount in the rectum but no obstruction. <Dr. Ananda Coyle MD - Last Filed: 08/06/22 15:41> [facility] MDM Narrative Medical decision making narrative: History gathered from: Patient and mom Patient has constipation and abdominal pain. She also has pain and duskiness in her right toes. She appears well and nontoxic. Heart rate 119, BP 106/81, otherwise normal vital signs. She does not appear septic. Her abdomen is soft, nondistended, generalized tenderness. Rectal exam had soft stool in the vault. I manually disimpacted small amount of stool and then she wanted to stop the exam and requested an enema. The first second and third toes on her right lower extremity are dusky and there is significantly delayed capillary refill. I cannot feel a palpable pulse. I did find a PT pulse with Doppler but could not appreciate a DP pulse. She denies history of PAD but does smoke 1 PPD x37 years. With concern for limb ischemia a CTA abdomen with runoffs will be obtained. This will also evaluate her constipation. With her benign abdominal exam I have low concern for SBO but this will be ruled insert out. I have personally performed a face to face assessment of the patient and have reviewed the JANICE Note. I performed a substantive portion of the visit including all aspects of the following. My jones findings include: History is [51-year-old female history of osteomyelitis where she had all the toes on 1 foot amputated. Presents with 2 complaints. 1 constipation. 2 discoloration to her great second and third toes on her left foot. Mild discomfort. History of peripheral arterial disease.] Exam is [51-year-old female no acute distress. Vital signs are stable and afebrile. H EENT exam unremarkable. Neck nontender. Lungs are clear. Heart regular rhythm rate about 100 no murmur. Abdomen soft nontender. Normal bowel sounds no peritoneal signs. No pulsatile mass. Patient moving all 4 extremities. All the toes have been amputated when flexed. The other foot has bluish discoloration of the great second and third toe. Foot however is warm to the touch. She has normal touch sensation. She is able to wiggle her toes. Calf is nontender. No edema or cords. Normal range of motion to the hip, knee ankle and foot.] Medical Decision Making [patient with constipation. Other complaint is discoloration and bluish nests of 3 toes and 1 foot. Concern for peripheral arterial disease. CTA with runoff will be obtained along with labs.] Other additions or changes: [None] Lab Data Attestation: I reviewed the patient's lab results. Lab results narrative: CBC shows normal white count 8.7. H&H of 15.7 and 48. Electrolytes unremarkable gap is 6 normal BUN and creatinine. Glucose of 290. Labs: Laboratory Results - last 24 hr 08/06/22 08/06/22 15:15 15:15 WBC 8.7 RBC 5.62 H Hgb 15.7 H Hct 48.1 H MCV 85.6 MCH 27.9 MCHC 32.6 RDW Std Deviation 38.5 RDW Coeff of Spencer 12.2 Plt Count 269 MPV 9.4 Immature Gran % (Auto) 0.300 Neut % (Auto) 74.5 H Lymph % (Auto) 16.8 L Whitman % (Auto) 6.9 Eos % (Auto) 0.7 Baso % (Auto) 0.8 Absolute Neuts (auto) 6.5 Absolute Lymphs (auto) 1.46 Nucleated RBC % 0 Sodium 136 Potassium 3.5 Chloride 101 Carbon Dioxide 29.0 Anion Gap 6 BUN 8 Creatinine 0.77 Estim Creat Clear Calc 85.00 Est GFR (MDRD) Af Amer 101 Est GFR (MDRD) Non-Af 84 BUN/Creatinine Ratio 10.4 Glucose 290 H Calcium 9.0 Radiography Diagnostic Testing: Clinical Impression(s) from Imaging Studies Abdomen/Pelvis CTA 08/06/22 15:13 IMPRESSION: (NOT LISTED IN ORDER OF SIGNIFICANCE) Stable 1.6 cm hypodense nodule in the upper lateral aspect of the right lobe of liver. ACR White Paper guidelines (Andrzej, et al. JACR 2017; 14(11):6105-9179.) suggest the following. For patients with low risk of malignancy, recommend hepatic MR. For patients with high risk of malignancy (known malignancy with a propensity to metastasize to the liver, cirrhosis, and/or other hepatic risk factors), recommend hepatic MR or core biopsy. Left patellar fracture. Age indeterminate. However, there is no joint effusion making the finding likely old. Right renal artery(arteries): There is moderate diffuse narrowing. Right posterior tibial artery: Multilevel severe stenosis of the artery. Right peroneal artery: There is an occlusion in the artery but with distal reconstitution. Left renal artery(arteries): There is severe diffuse narrowing. Left anterior tibial artery: There is severe diffuse narrowing, with visualization of the vessel to the distal calf. Left posterior tibial artery: Multilevel severe stenosis of the artery. Left peroneal artery: There is severe diffuse narrowing, with visualization of the vessel to the distal calf. Constipation. Gastritis. Patients colitis has resolved. Electronically Signed: Sebastien Mireles MD at 16:14 EST Reading Location ID and State: [facility] / [place] , Service support , Discharge Plan Triage Chief Complaint: Constipation ED Midlevel Provider: Vianey Galeano ED Provider: Ananda Coyle Dx/Rx/DC Orders Clinical Impression: Peripheral arterial disease, Constipation Instructions: Treating Constipation, PAD Prescriptions: No Action ondansetron 4 mg tablet,disintegrating 4 mg PO Q6H PRN (Reason: nausea and vomiting) Qty: 20 0RF alendronate 70 mg tablet 70 mg PO WE Label Comments: take one tablet weekly cholecalciferol (vitamin D3) 25 mcg (1,000 unit) tablet 1,000 unit PO DAILY Label Comments: TAKE 1 TABLET DAILY insulin glargine [Lantus Solostar U-100 Insulin] 100 unit/mL (3 mL) insulin pen 10 units subcut BID omeprazole 40 mg capsule,delayed release(DR/EC) 40 mg PO DAILY Qty: 30 0RF ondansetron 4 mg tablet,disintegrating 4 mg PO Q8H PRN PRN (Reason: Nausea) Qty: 10 0RF dicyclomine 20 mg tablet 20 mg PO BID Qty: 14 0RF Primary Care Provider: Ama Neff Referrals: Riccardo Ng MD [Med Staff - Active Staff] - Ama Neff [Primary Care Provider] - Activity Restrictions/Additional Instructions: Call the vascular surgeon tomorrow to get an appointment this week to be seen for your right leg. At some point you will need a revascularization procedure whether this is a stent or bypass. Come back to the ER if your foot worsens in any way. Regarding her constipation, there were no signs of obstruction on the CAT scan. The enema seem to work here. I would continue stool softeners or buy MiraLAX and take 2 caps a day until you are going regularly. Drink plenty of fluid. Disposition Disposition: Home, Self Care Discharge Date/Time: 08/06/22 17:05
--- NOTE | 2022-08-06 15:13 | CT_ITS ---
STUDY: CTA OF THE ABDOMINAL AORTA AND BILATERAL LOWER EXTREMITIES REASON FOR EXAM: Female, 51 years old. right foot pain, decreased pulse -- also please comment on constipation, constipation x 3 days. Prior left toes amputated d/t osteomyelitis TECHNIQUE: Axial CT angiography multi-detector data acquisition was obtained following intravenous administration of 100mL Isovue-370 contrast. Axial images and MIP images were reconstructed from the axial data set. Post-processing of the angiographic images was performed, with multiplanar reformation and 3D reconstruction. MIPS images were obtained. Individualized dose optimization techniques were used for this CT. COMPARISON: 3.2.23. 7.29.21. Descriptors of Narrowing: None (0%) Mild (< 50%) Moderate (50-70%) Severe (70-90%) Subtotal/Total Occlusion (90-100%) Non-Evaluable (technically non-diagnostic FINDINGS: The visualized lung bases are unremarkable. The visualized portions of the heart are within normal limits. Stable 1.6 cm hypodense nodule in the upper lateral aspect of the right lobe of liver. ACR White Paper guidelines ([place], et al. JACR 2017; 14(11):0723-5236.) suggest the following. For patients with low risk of malignancy, recommend hepatic MR. For patients with high risk of malignancy (known malignancy with a propensity to metastasize to the liver, cirrhosis, and/or other hepatic risk factors), recommend hepatic MR or core biopsy. There are surgical clips in the gallbladder fossa consistent with a prior cholecystectomy. Normal spleen. Normal pancreas. 18mm right and 16mm left adrenal gland mass. This is stable. ACR White Paper guidelines ([place], et al. JACR 2017; 14(8):1962-3595) suggest no follow-up is necessary. Normal right kidney. Stable cyst of the left kidney. Focal wall thickening of the antrum of stomach. This can suggest a gastritis. Normal small intestine. There are multiple colonic diverticula consistent with diverticulosis. There are surgical clips in the region of the appendix consistent with a prior appendectomy. Large amount of stool in the rectal vault can suggest constipation. Normal inferior vena cava. Normal retroperitoneum. Normal urinary bladder. Amputation of the toes of the left foot. Normal abdominal wall. There are diffuse degenerative changes of the visualized lumbar spine. There is an unremarkable-appearing IVC. Left patellar fracture. Age indeterminate. However, there is no joint effusion making the finding likely old. Abdominal aorta: There are calcifications of the abdominal aorta. This is consistent for atherosclerotic disease. There is no abdominal aortic aneurysm. Celiac and superior mesenteric arteries: No demonstrated narrowing. Inferior mesenteric artery: There is mild diffuse narrowing. Right renal artery(arteries): There is moderate diffuse narrowing. Left renal artery(arteries): There is severe diffuse narrowing. Right common iliac artery: There is mild diffuse narrowing. Right external iliac artery: There is mild diffuse narrowing. Right internal iliac artery: There is severe diffuse narrowing. Left common iliac artery: There is mild diffuse narrowing. Left external iliac artery: There is mild diffuse narrowing. Left internal iliac artery: There is severe diffuse narrowing. RIGHT LOWER EXTREMITY There is a calcaneal spur. Right common femoral artery: There is moderate diffuse narrowing. Right profundus femoris: No demonstrated narrowing. Right superficial femoral: There is moderate diffuse narrowing. Right popliteal artery: There is moderate diffuse narrowing. Right tibioperoneal trunk: No demonstrated narrowing. Right anterior tibial artery: No demonstrated narrowing. Right posterior tibial artery: Multilevel severe stenosis of the artery. Right peroneal artery: There is an occlusion in the artery but with distal reconstitution. LEFT LOWER EXTREMITY There is a calcaneal spur. Left common femoral artery: There is mild diffuse narrowing. Left profundus femoris: No demonstrated narrowing. Left superficial femoral: No demonstrated narrowing. Left popliteal artery: No demonstrated narrowing. Left tibioperoneal trunk: No demonstrated narrowing. Left anterior tibial artery: There is severe diffuse narrowing, with visualization of the vessel to the distal calf. Left posterior tibial artery: Multilevel severe stenosis of the artery. Left peroneal artery: There is severe diffuse narrowing, with visualization of the vessel to the distal calf. CT/CTA Abd w/Runoff W/WO Contrast IMPRESSION: (NOT LISTED IN ORDER OF SIGNIFICANCE) Stable 1.6 cm hypodense nodule in the upper lateral aspect of the right lobe of liver. ACR White Paper guidelines (Andrzej, et al. JACR 2017; 14(11):3201-0677.) suggest the following. For patients with low risk of malignancy, recommend hepatic MR. For patients with high risk of malignancy (known malignancy with a propensity to metastasize to the liver, cirrhosis, and/or other hepatic risk factors), recommend hepatic MR or core biopsy. Left patellar fracture. Age indeterminate. However, there is no joint effusion making the finding likely old. Right renal artery(arteries): There is moderate diffuse narrowing. Right posterior tibial artery: Multilevel severe stenosis of the artery. Right peroneal artery: There is an occlusion in the artery but with distal reconstitution. Left renal artery(arteries): There is severe diffuse narrowing. Left anterior tibial artery: There is severe diffuse narrowing, with visualization of the vessel to the distal calf. Left posterior tibial artery: Multilevel severe stenosis of the artery. Left peroneal artery: There is severe diffuse narrowing, with visualization of the vessel to the distal calf. Constipation. Gastritis. Patients colitis has resolved. Electronically Signed: Sebastien Mireles MD at 16:14 EST ,
[2022-08-06 15:21] LABS: Absolute Lymphocyte Count 1.46 X10^3/uL (0.83-4.51); Absolute Neutrophil Count 6.5 X10^3/uL (2.0-7.7); Basophil# 0.07 X10^3/uL; Basophil% 0.8 % (0-1); Eosinophil# 0.06 X10^3/uL; Eosinophils% 0.7 % (0-5); Hematocrit 48.1 % (37-47); Hemoglobin 15.7 g/dL (12.0-15.0); Lymphocyte # 1.46 X10^3/ul (0.83-4.51); Lymphocyte % 16.8 % (19-41); Mean Corp Hgb Conc 32.6 g/dL (32-36); Mean Corpuscular Hgb 27.9 pg (27.0-32.0); Mean Corpuscular Volume 85.6 fL (81-99); Mean Platelet Vol. 9.4 fl (6.2-12.0); Monocyte% 6.9 % (0-10); NRBC Flagged by Analyzer 0 % (0-5); Neutrophil # 6.49 X10^3/uL (2.7-7.7); Neutrophil % 74.5 % (47-70); Platelet Count 269 K/mm3 (150-450); RBC Distribution Width CV 12.2 % (11.6-14.6); RBC Distribution Width SD 38.5 fl (35.1-43.9); Red Blood Count 5.62 M/mm3 (4.2-5.4); White Blood Count 8.7 K/mm3 (4.4-11.0)
[2022-08-06 15:36] LABS: Anion Gap 6 (5-15); BUN 8 mg/dL (7-18); BUN/Creat Ratio 10.4 RATIO (10-20); Chloride 101 mmol/L (98-107); Creatinine, Serum 0.77 mg/dL (0.55-1.02); EST Glomerular Filtration Rate 84 mL/min (>60); Est Glom Filt Rate - Afr Amer 101 mL/min (>60); Glucose 290 mg/dL (74-106); Potassium 3.5 mmol/L (3.5-5.1); Sodium Level 136 mmol/L (136-145)
[2022-08-06] MEDS: 0.9% Normal Saline 1,000 ML 999 ML IV (16:04)
[2022-08-06] MEDS: morphine 8 MG/ML Syringe 6 MG IV (16:05)
[2022-08-06] MEDS: Fleet Enema 1 ML RC (16:05)
[2022-08-06] MEDS: Ondansetron 4 MG/2 ML Vial IV (16:05)
[2022-08-06 16:45] VITALS: BP 143/78; PULSE 76; RESP 16; TEMP 36.6; O2SAT 99
== END 2022-08-06 17:05 | disposition home or self-care (01) ==
PROVIDERS: Physician Assistant; Emergency Provider Emergency Medicine; Visit Provider Emergency Medicine
DX: K59.00 Constipation, unspecified (principal); E11.51 Type 2 diabetes mellitus with diabetic peripheral angiopathy without gangrene; Z89.422 Acquired absence of other left toe(s); I11.0 Hypertensive heart disease with heart failure; I50.9 Heart failure, unspecified; F17.210 Nicotine dependence, cigarettes, uncomplicated; E78.5 Hyperlipidemia, unspecified; I25.10 Atherosclerotic heart disease of native coronary artery without angina pectoris
CPT/HCPCS: 75635; 80048; 85025; 96361; 96374; 96375; 99283; Q9967; A4216; J2405

== ENCOUNTER 2022-08-10 06:28 | Day surgery (SDC) | payer MEDICAID, SELFPAY ==
[2022-08-09 15:33] VITALS: BMI 24.1
[2022-08-10 06:53] LABS: Internal QC Validated? YES +Cl - CLEAR BKGD; Pregnancy, Serum, hCG Quali. NEGATIVE Negative
--- NOTE | 2022-08-10 13:56 | OP.PCM_ITS ---
Report of Operation Date of Procedure: 08/10/22 Pre-Operative Diagnosis: Atherosclerosis with rest pain in the right lower extr emity, atheroembolization with blue toe syndrome Post-Operative Diagnosis: Same Surgery/Procedure Performed:: Aortogram, right lower extremity runoff Intravascular ultrasound of the right tibioperoneal trunk, right SFA popliteal artery, right common femoral artery Atherectomy angioplasty and stent of right superficial femoral artery Surgeon: Riccardo Ng Type of Anesthesia: General and Local Estimated Blood Loss (mL): 5 Description of Procedure: HPI: Patient is a 51-year-old female with abrupt onset of discoloration and pain in the right lower extremity. She had CT angiography which revealed intermittent segments of high-grade stenosis with suspected mural thrombus and near total occlusion of the SFA popliteal. She also had what appeared to be total occlusion of the peroneal artery. She presents now for angiogram with possible intervention to prevent any further after embolic event and improve perfusion to prevent progression of the tissue loss. Description of procedure: Upon obtaining form consent and verification correct patient procedure site the patient was taken to the Sales Representative Sales [facility] where she was positioned prepped and draped in usual sterile fashion. Time was performed conscious sedation administered with Versed and fentanyl. Skin was anesthetized over the left common femoral artery and the vessel accessed under ultrasound guidance in retrograde fashion with micropuncture needle wire. This was then exchanged for micropuncture sheath through which hand-injection femoral angiogram was performed revealing satisfactory placement no extravasation or dissection. Through the micropuncture sheath a starter wire was advanced and the micropuncture sheath exchanged out for a short 5 Serbian sheath. Through the 5 Serbian sheath and Omni Flush catheter was advanced abdominal aorta and additional subtraction aortogram pelvic angiogram was performed. We then navigated the contralateral external iliac artery with a Bentson wire and Omni Flush catheter and from this position performed sequential imaging subtraction angiography of the right lower extremity. Once the lesions of concern were identified the patient was heparinized and allowed to circulate for 3 minutes. The Bentson wire then readvanced through the Omni Flush catheter and advanced ultimately into the distal popliteal artery. The Omni Flush cath was then withdrawn and the 5 Serbian sheath exchanged out for a 7 Serbian Terumo destination sheath which was advanced in the position into the right common femoral artery. From this position using the Bentson wire and a quick cross catheter we navigated the remainder of the atherosclerotic segment advancing our catheter and wire into the distal popliteal artery. The wire was then withdrawn and hand-injection angiography via the catheter confirmed position beyond the lesion with presence within the true lumen. The [employer] bare wire was then advanced through the catheter and the catheter drawn. An intravascular ultrasound probe was then advanced over the wire and recorded pullback performed from the tibioperoneal trunk back through the common femoral artery. This revealed multiple tandem lesions 1 at the SFA origin, and multiple lesions in a single segment approximately 20 cm in length in the above-knee popliteal artery. Dobbins these were appropriate for endovascular intervention so an Mytonomy nab 6 distal protection device was then advanced and positioned in the below-knee popliteal artery and deployed. A Viroblock jetstream rotational atherectomy device was then brought in the field and prep for gang vibrator operator instructions. This was advanced over the wire and deployed in blades down configuration across the long segment lesion for 2 passes. Device was then withdrawn and repeat angiography confirmed satisfactory lumen response and with significant debris in the filter. We then predilated the segment with a 5 mm angioscope balloon inflated to nominal and then deflated withdrawn. Next a [place] paclitaxel coated balloon 5 x 200 was advanced in position inflated to nominal and then deflated withdrawn. A second 5 x 40 angioplasty balloon was used to complete the coverage of the lesion. Completion angiography revealed some residual stenosis at the proximal end of the lesion so a 6 x 40 EV 3 prot?g? stent was advanced in the position and deployed. This was then postdilated with a 5 x 4 angioplasty balloon with satisfactory resolution of the stenosis. I then turned attention to more proximal lesion versus balloon angioplasty with a 5 x 20 angioscope balloon followed by a 5 x 40 [employer] [place] paclitaxel balloon. Completion angiography revealed residual stenosis and dissection at the SFA origin so a 6 x 40 [place] self- expanding stent was advanced in the position and deployed. Completion angiography revealed satisfactory resolution of the residual stenosis in the dissection with brisk contrast transit across the SFA popliteal. The filter was then retrieved and completion angiography revealed preserved runoff. The 7 Serbian sheath then exchanged out for a short 7 Serbian sheath and a minx closure device deployed followed by 2 minutes of manual pressure. The patient was then taken the recovery room with anticipated discharged home. Radiographic interpretation: Abdominal aorta normal caliber with no significant atherosclerosis or stenosis Left common and external artery widely patent with no atherosclerosis or stenosis. Right common and external iliac artery widely patent with no atherosclerosis or stenosis. Right common femoral artery widely patent no atherosclerosis or stenosis. Right profundofemoral artery widely patent large caliber vessel and atherosclerosis or stenosis. Left superficial femoral artery with severe stenosis at the origin, followed by intervening segment of normal caliber with no atherosclerosis. At the adductor hiatus there was proximal edge of a severely diseased segment approximately 20 cm in length followed by return to normal caliber nondiseased below-knee popliteal. The anterior tibial artery was a dominant outflow large caliber vessel with no atherosclerosis or stenosis. The peroneal artery was occluded and the posterior tibial artery was highly diseased but patent to the ankle. Post intervention resolution of all significant stenosis.
== END 2022-08-10 15:47 | disposition home or self-care (01) ==
PROVIDERS: Referring Provider Surgery Trauma Surgery; Visit Provider Surgery Trauma Surgery
DX: I70.221 Atherosclerosis of native arteries of extremities with rest pain, right leg (principal); Z89.429 Acquired absence of other toe(s), unspecified side; I75.021 Atheroembolism of right lower extremity; E11.9 Type 2 diabetes mellitus without complications; M79.604 Pain in right leg; I25.10 Atherosclerotic heart disease of native coronary artery without angina pectoris; K21.9 Gastro-esophageal reflux disease without esophagitis; I10 Essential (primary) hypertension; E78.5 Hyperlipidemia, unspecified; Z82.49 Family history of ischemic heart disease and other diseases of the circulatory system; Z90.49 Acquired absence of other specified parts of digestive tract; F17.210 Nicotine dependence, cigarettes, uncomplicated
CPT/HCPCS: 36200; 36245; 36415; 37227; 37252; 37253; 75625; 75710; 76937; 84703; 99152; 99153; C1724; C1725; C1753; C1760; C1769; C1884; C2623; J7030; J7040; Q9967; C1874; C1876; C1887; C1894; J2405

== ENCOUNTER 2022-08-14 13:36 | Emergency (ER) | payer MEDICAID, SELFPAY ==
[2022-08-14 13:37] VITALS: BP 113/89; PULSE 123; RESP 16; TEMP 36.6; O2SAT 99; BMI 24.7
[2022-08-14 13:51] VITALS: BP 142/100; PULSE 122; RESP 18; TEMP 36.6; O2SAT 98
--- NOTE | 2022-08-14 14:32 | ED.VIS.LOWEX ---
HPI History of Present Illness Chief Complaint: Lower Extremity Injury Informant: patient Narrative Narrative: Patient comes in with pain mostly in her left foot. She states this really increased on Sunday. She had arteriogram with stenting of her right leg on . She is on tramadol but states it makes her nauseated and it does not work well. She is taking it though. She is also taking her Plavix and her aspirin. She states she had the procedure because her toes were getting very dark red and black. She states her toes look a lot better now but the pain seems to be increasing over the last few days. No fevers or chills. No other symptoms. Nothing specifically makes it better or worse. Patient is still smoking and was told the significant importance of stopping this with poor vascular flow distally. [facility] Medical History CAD (coronary artery disease), [place] coronary artery CHF (congestive heart failure) GERD (gastroesophageal reflux disease) HTN (hypertension) Hx of fracture of humerus Hyperlipidemia Toe amputee Home Medications alendronate 70 mg tablet 70 mg PO WE 07/25/22 [History Last Taken Unknown] cholecalciferol (vitamin D3) 25 mcg (1,000 unit) tablet 1,000 unit PO DAILY 07/25/22 [History Last Taken Unknown] insulin glargine 100 unit/mL (3 mL) subcutaneous pen (Lantus Solostar U-100 Insulin) 10 units subcut BID 07/25/22 [History Last Taken Unknown] omeprazole 40 mg capsule,delayed release 40 mg PO DAILY #30 caps 07/25/22 [Rx Last Taken Unknown] dicyclomine 20 mg tablet 20 mg PO BID #14 tabs 08/03/22 [Rx Last Taken Unknown] atorvastatin 80 mg tablet 80 mg PO DAILY #90 tabs 08/09/22 [Rx Last Taken Unknown] calcium carbonate 500 mg calcium (1,250 mg) tablet 1 tablet PO DAILY 08/09/22 [History Last Taken Unknown] cilostazol 50 mg tablet 50 mg PO BID #60 tabs 08/09/22 [Rx Last Taken Unknown] clopidogrel 75 mg tablet (Plavix) 75 mg PO DAILY #30 tabs 08/09/22 [Rx Last Taken Unknown] desvenlafaxine succinate 25 mg tablet,extended release 24 hr 1 ea PO DAILY 08/09/22 [History Last Taken Unknown] glimepiride 4 mg tablet 1 tablet PO DAILY 08/09/22 [History Last Taken Unknown] ivermectin 3 mg tablet 12 mg PO X1 08/09/22 [History Last Taken Unknown] nitroglycerin 2 % transdermal ointment (Nitro-Bid) 0.5 inch transdermal BID #30 grams 08/09/22 [Rx Last Taken Unknown] tramadol 50 mg tablet 50 mg PO TID PRN pain #30 tabs 08/09/22 [Rx Last Taken Unknown] trazodone 50 mg tablet 50 mg PO DAILY 08/09/22 [History Last Taken Unknown] aspirin 81 mg capsule 81 mg PO DAILY 08/10/22 [History Last Taken 08/10/22] gabapentin 300 mg capsule (Neurontin) 300 mg PO TID #30 caps 08/14/22 [Rx Last Taken Unknown] oxycodone-acetaminophen 5 mg-325 mg tablet (Percocet) 1 tab PO Q6H PRN pain 3 days #12 tabs 08/14/22 [Rx Last Taken Unknown] Allergy/AdvReac Type Severity Reaction Status Date / Time latex Allergy Hives Verified 08/14/22 13:38 Family History Other Diabetes Heart disease Surgical History History of cholecystectomy Social History household members: spouse and children housing: house Smoking Status: Current every day smoker tobacco type: cigarettes alcohol intake: never what type of physical activity do you participate in: none do you feel safe at home: Yes ROS ROS ED Constitutional Constitutional ED: Denies chills, fever(s) or subjective Eyes Eyes: Denies change in vision ENT ENT ED: Denies rhinorrhea Cardiovascular Cardiovascular: Denies chest pain or palpitations Respiratory/Chest Respiratory/Chest: Denies cough or dyspnea Gastrointestinal Gastrointestinal: Reports other Details: Patient sometimes gets nauseated with tramadol but has not had vomiting. ; Denies abdominal pain or vomiting Genitourinary Genitourinary ED: Denies dysuria Musculoskeletal Musculoskeletal: Reports other Details: Right foot pain as in history of present illness Integumentary Reports other Details: Darkening of the toes is actually improved since the procedure. ; Denies rash Neurologic Neurologic: Reports paresthesias and other Details: She does have bilateral lower extremity paresthesias but a lot of this is not new. This is likely due to neuropathy secondary to both diabetes and vascular insufficiency. Endocrine Endocrinology: Denies polyuria Hematologic/Lymphatic Hematologic/Lymphatic: Denies lymphadenopathy Allergic/Immunologic Allergic/Immunologic ED: Denies urticaria EXAM Physical Exam Narrative Exam Narrative: Patient is awake alert laying in bed. She looks uncomfortable but does not look toxic. HEENT shows moist mucous membranes Neck shows no stridor Lungs are clear bilaterally. Breathing is easy and unlabored and saturations are 98 to 100% on room air showing no hypoxia. Heart rate is about 100 at this time. I think this is likely due to pain as she is in moderate pain. Abdomen is actually soft and completely nontender. No bruising up onto the abdominal wall. No mass. Bowel sounds are normal. Its not distended. No [place] or [place] sign seen Extremities show gauze on the puncture site in the left groin. There is some mild bruising around it but this is not significant or unexpected considering the procedure. There is no erythema. The area is not tender. She does have a little duskiness of the tip of the toes mostly medially on the right foot. Left of have already had transmetatarsal distal amputations. We used a Doppler ultrasound. I was surprised that we actually got excellent flow. She had triphasic sounds at her up proximal femoral artery. She had strong biphasic at popliteal and she had strong biphasic sounds both posterior tibial and dorsalis pedis. Const Vital Signs: 08/14/22 13:37 08/14/22 13:51 Temperature 98 F 97.8 F Temperature Source Temporal Oral Pulse Rate 123 H 122 H Respiratory Rate 16 18 Blood Pressure 113/89 H 142/100 H Blood Pressure Mean 97 114 Pulse Ox 99 98 Oxygen Delivery Method Room Air Room Air MDM MDM MDM Narrative Medical decision making narrative: I discussed the case directly with her surgeon, Dr. Ng. He states she was in quite a bit of her pain prior to the procedure. It is always been hard to manage her pain. The flow she has is excellent result. He had told her that although she will have better flow to try to save her toes, she may still have significant pain. She may be having waking up of some nerve pain also contributing to this. Plan will be to try to get her comfortable so we can get her home. I will get her meds for pain nausea, mild hydration, and we may start Neurontin to see if that will give her some benefit also. Blood work showed normal white count hemoglobin and platelets. Electrolytes show no marked abnormalities. No sign of dehydration. Glucose is high but she runs high all the time. I rechecked the patient. She is now laying back in bed she is much better but she still having pain. I explained that I will get her some more pain meds here. I will write for stronger pain meds to go along with Neurontin. I explained that Neurontin may need to have the dose progressively increased. But at this time she has as good of blood flow as we can expect. The color in her toes has improved. It is just the pain that is worse. She will follow-up with Dr. Ng as scheduled Lab Data Attestation: I reviewed the patient's lab results. Labs: Laboratory Results - last 24 hr 08/14/22 08/14/22 15:11 15:11 WBC 9.7 RBC 5.16 Hgb 14.6 Hct 43.1 MCV 83.5 MCH 28.3 MCHC 33.9 RDW Std Deviation 37.5 RDW Coeff of [place] 12.3 Plt Count 220 MPV 9.8 Immature Gran % (Auto) 0.600 Neut % (Auto) 78.3 H Lymph % (Auto) 13.9 L [place] % (Auto) 5.8 Eos % (Auto) 0.8 Baso % (Auto) 0.6 Absolute Neuts (auto) 7.6 Absolute Lymphs (auto) 1.35 Nucleated RBC % 0.2 Sodium 134 L Potassium 3.7 Chloride 101 Carbon Dioxide 27.0 Anion Gap 6 BUN 9 Creatinine 1.05 H Estim Creat Clear Calc 62.33 Est GFR (MDRD) Af Amer 71 Est GFR (MDRD) Non-Af 59 L BUN/Creatinine Ratio 8.6 L Glucose 331 H Calcium 8.9 Discharge Plan Triage Chief Complaint: Lower Extremity Injury ED Provider: Roberto Black Dx/Rx/DC Orders Clinical Impression: Foot pain, right, Peripheral vascular disease Instructions: Diabetes PAD Prescriptions: New oxycodone-acetaminophen [Percocet] 5-325 mg tablet 1 tab PO Q6H PRN (Reason: pain) 3 Days Qty: 12 0RF gabapentin [Neurontin] 300 mg capsule 300 mg PO TID Qty: 30 0RF No Action desvenlafaxine succinate 25 mg tablet extended release 24 hr 1 ea PO DAILY Label Comments: TAKE 1 TABLET BY MOUTH DAILY FOR 5 DAYS, THEN INCREASE TO 2 (TWO) TABLETS DAILY trazodone 50 mg tablet 50 mg PO DAILY glimepiride 4 mg tablet 1 tablet PO DAILY calcium carbonate 500 mg calcium (1,250 mg) tablet 1 tablet PO DAILY ivermectin 3 mg tablet 12 mg PO X1 Label Comments: take 12 mg for 1 dose then repeat evaluation in one week cilostazol 50 mg tablet 50 mg PO BID Qty: 60 2RF Nitro-Bid 2 % ointment 0.5 inch transdermal BID Qty: 30 0RF Rx Instructions: administer 2 doses/day (approx. 6 hrs apart); remove for 10-12 hrs per 24 hours atorvastatin 80 mg tablet 80 mg PO DAILY Qty: 90 3RF clopidogrel [Plavix] 75 mg tablet 75 mg PO DAILY Qty: 30 2RF tramadol 50 mg tablet 50 mg PO TID PRN (Reason: pain) Qty: 30 0RF alendronate 70 mg tablet 70 mg PO WE Label Comments: take one tablet weekly cholecalciferol (vitamin D3) 25 mcg (1,000 unit) tablet 1,000 unit PO DAILY Label Comments: TAKE 1 TABLET DAILY insulin glargine [Lantus Solostar U-100 Insulin] 100 unit/mL (3 mL) insulin pen 10 units subcut BID omeprazole 40 mg capsule,delayed release(DR/EC) 40 mg PO DAILY Qty: 30 0RF dicyclomine 20 mg tablet 20 mg PO BID Qty: 14 0RF aspirin 81 mg Capsule 81 mg PO DAILY [facility] Provider: [facility] Referrals: Riccardo Ng MD [Med Staff - Active Staff] - [facility] appointment [facility] [Primary Care Provider] - Disposition Disposition: Home, Self Care
[2022-08-14] MEDS: Gabapentin 300 MG Capsule PO (14:55)
[2022-08-14] MEDS: Ondansetron 4 MG/2 ML Vial IV (15:21)
[2022-08-14] MEDS: Morphine 4 MG/ML Syringe IV (15:21)
[2022-08-14 15:52] LABS: Anion Gap 6 (5-15); BUN 9 mg/dL (7-18); BUN/Creat Ratio 8.6 RATIO (10-20); Calcium,Total 8.9 mg/dL (8.5-10.1); Chloride 101 mmol/L (98-107); Creatinine, Serum 1.05 mg/dL (0.55-1.02); EST Glomerular Filtration Rate 59 mL/min (>60); Est Glom Filt Rate - Afr Amer 71 mL/min (>60); Estimated Creatinine Clearance 62.33 ml/min; Glucose 331 mg/dL (74-106); Potassium 3.7 mmol/L (3.5-5.1); Sodium Level 134 mmol/L (136-145)
[2022-08-14 16:06] LABS: Absolute Lymphocyte Count 1.35 X10^3/uL (0.83-4.51); Absolute Neutrophil Count 7.6 X10^3/uL (2.0-7.7); Basophil# 0.06 X10^3/uL; Basophil% 0.6 % (0-1); Eosinophil# 0.08 X10^3/uL; Eosinophils% 0.8 % (0-5); Hematocrit 43.1 % (37-47); Hemoglobin 14.6 g/dL (12.0-15.0); Lymphocyte # 1.35 X10^3/ul (0.83-4.51); Lymphocyte % 13.9 % (19-41); Mean Corp Hgb Conc 33.9 g/dL (32-36); Mean Corpuscular Hgb 28.3 pg (27.0-32.0); Mean Corpuscular Volume 83.5 fL (81-99); Monocyte# 0.56 X10^3/uL; Monocyte% 5.8 % (0-10); NRBC Flagged by Analyzer 0.2 % (0-5); Neutrophil # 7.61 X10^3/uL (2.7-7.7); Neutrophil % 78.3 % (47-70); POSITIVE COUNT YES; Platelet Count 220 K/mm3 (150-450); RBC Distribution Width CV 12.3 % (11.6-14.6); RBC Distribution Width SD 37.5 fl (35.1-43.9); Red Blood Count 5.16 M/mm3 (4.2-5.4); White Blood Count 9.7 K/mm3 (4.4-11.0)
[2022-08-14 16:10] LABS: Mean Platelet Vol. 9.8 fl (6.2-12.0)
[2022-08-14 16:11] LABS: Differential Indicated SCAN CRITERIA MET
[2022-08-14 16:50] VITALS: BP 142/68; PULSE 89; RESP 16; O2SAT 95
== END 2022-08-14 16:51 | disposition home or self-care (01) ==
PROVIDERS: Emergency Provider Emergency Medicine; Visit Provider Emergency Medicine
DX: M79.671 Pain in right foot (principal); I11.0 Hypertensive heart disease with heart failure; I50.9 Heart failure, unspecified; I73.9 Peripheral vascular disease, unspecified; I25.10 Atherosclerotic heart disease of native coronary artery without angina pectoris; F17.200 Nicotine dependence, unspecified, uncomplicated; E78.5 Hyperlipidemia, unspecified; M79.672 Pain in left foot
CPT/HCPCS: 80048; 85025; 96360; 96374; 96375; 96376; 99284; J2405

== ENCOUNTER → 2022-08-17 | Outpatient (CLI) | payer MEDICAID, SELFPAY ==
--- NOTE | 2022-08-17 14:04 | ART_ITS ---
Reason For Study: Claudication Procedure A bilateral lower extremity continuous wave Doppler with analog waveform analysis,segmental pressures,and ankle brachial indexes without exercise. Left Segmental Pressures Left brachial= 114mmHg. Left calf = 117mmHg. Left posterior tibial artery = 113mmHg. Left dorsalis pedis artery = 103mmHg. The left dorsalis pedis waveforms are triphasic. The left posterior tibial artery waveforms are biphasic. Right Segmental Pressures Right brachial= 114mmHg. Right posterior tibial artery = 121mmHg. Right dorsalis pedis artery = 114mmHg. Right digit = 43 mmHg. The right dorsalis pedis waveforms are triphasic. The right posterior tibial artery waveforms are triphasic. Indices The right ankle brachial index by the dorsalis pedis is 1.00. The right ankle brachial index by the posterior tibial artery is 1.06. The right digital-brachial index is 0.38. The left ankle brachial index by the dorsalis pedis is 0.90. The left ankle brachial index by the posterior tibial artery is 0.99. VL/Lower Ext Art Exam w/o Exercis Interpretation Summary Right VIRY 1.06, normal. Doppler/PVR waveforms of the right leg normal at rest. TBI diminished, pedal/digit disease. Left VIRY 0.99, mild arterial insufficiency. Doppler/PVR waveforms of the left a nkle normal at rest. Ordering Physician: Veda Mathis Referring Physician: [facility] Performed By: Paula No RVT
== END | disposition home or self-care (01) ==
LOC: CVS 14:03
PROVIDERS: Referring Provider Physician Assistant; Visit Provider Physician Assistant
DX: I75.021 Atheroembolism of right lower extremity (principal); I70.221 Atherosclerosis of native arteries of extremities with rest pain, right leg
CPT/HCPCS: 93923

== ENCOUNTER 2022-08-30 13:51 | Inpatient (IN) | payer MEDICAID, SELFPAY ==
[2022-08-30 13:53] VITALS: BP 136/90; PULSE 123; RESP 18; TEMP 36.8; O2SAT 98; BMI 24.4
--- NOTE | 2022-08-30 14:07 | ED.VIS.LOWEX ---
HPI History of Present Illness HPI Narrative: 52-year-old female past medical history of diabetes, left partial foot amputation remotely presents with pain in her right foot and blackness to the tip of her right second toe. She relates history that she was seen by vascular surgery at the beginning of the month. She had a procedure done, and is supposed to follow-up with podiatry regarding her toe discoloration and pain. She states she does not have an appointment until the . The majority of her history comes from review of her prior records. In review of the EMR, she presented the beginning of the month around 06 August with discoloration of her toes and toe pain. Dr. Riccardo Ng with vascular surgery performed right superficial femoral artery angioplasty. She states although she had the procedure done, she is having continued pain in her foot and in her toes, and the tip of her second toe is black and getting worse. She also fell and skinned the area around her proximal second toe. She denies any fevers or chills. No nausea or vomiting, no other symptoms. Chief Complaint: Lower Extremity Injury PFSH PFS Medical History CAD (coronary artery disease), [place] coronary artery CHF (congestive heart failure) GERD (gastroesophageal reflux disease) HTN (hypertension) Hx of fracture of humerus Hyperlipidemia Toe amputee Home Medications alendronate 70 mg tablet 70 mg PO WE 07/25/22 [History Last Taken Unknown] cholecalciferol (vitamin D3) 25 mcg (1,000 unit) tablet 1,000 unit PO DAILY 07/25/22 [History Last Taken Unknown] insulin glargine 100 unit/mL (3 mL) subcutaneous pen (Lantus Solostar U-100 Insulin) 10 units subcut BID 07/25/22 [History Last Taken Unknown] omeprazole 40 mg capsule,delayed release 40 mg PO DAILY #30 caps 07/25/22 [Rx Last Taken Unknown] dicyclomine 20 mg tablet 20 mg PO BID #14 tabs 08/03/22 [Rx Last Taken Unknown] atorvastatin 80 mg tablet 80 mg PO DAILY #90 tabs 08/09/22 [Rx Last Taken Unknown] calcium carbonate 500 mg calcium (1,250 mg) tablet 1 tablet PO DAILY 08/09/22 [History Last Taken Unknown] cilostazol 50 mg tablet 50 mg PO BID #60 tabs 08/09/22 [Rx Last Taken Unknown] clopidogrel 75 mg tablet (Plavix) 75 mg PO DAILY #30 tabs 08/09/22 [Rx Last Taken Unknown] desvenlafaxine succinate 25 mg tablet,extended release 24 hr 1 ea PO DAILY 08/09/22 [History Last Taken Unknown] glimepiride 4 mg tablet 1 tablet PO DAILY 08/09/22 [History Last Taken Unknown] ivermectin 3 mg tablet 12 mg PO X1 08/09/22 [History Last Taken Unknown] nitroglycerin 2 % transdermal ointment (Nitro-Bid) 0.5 inch transdermal BID #30 grams 08/09/22 [Rx Last Taken Unknown] tramadol 50 mg tablet 50 mg PO TID PRN pain #30 tabs 08/09/22 [Rx Last Taken Unknown] trazodone 50 mg tablet 50 mg PO DAILY 08/09/22 [History Last Taken Unknown] aspirin 81 mg capsule 81 mg PO DAILY 08/10/22 [History Last Taken 08/10/22] gabapentin 300 mg capsule (Neurontin) 300 mg PO TID #30 caps 08/14/22 [Rx Last Taken Unknown] oxycodone-acetaminophen 5 mg-325 mg tablet (Percocet) 1 tab PO Q6H PRN pain 3 days #12 tabs 08/14/22 [Rx Last Taken Unknown] Allergy/AdvReac Type Severity Reaction Status Date / Time latex Allergy Hives Verified 08/30/22 13:57 Family History Other Diabetes Heart disease Surgical History History of cholecystectomy Social History household members: spouse and children housing: house Smoking Status: Current every day smoker tobacco type: cigarettes alcohol intake: never what type of physical activity do you participate in: none do you feel safe at home: Yes ROS ROS ED ROS Narrative Constitutional: No fever, no chills. HEENT: No sore throat. No neck pain. No loss of vision. No rhinorrhea. Cardiovascular: No chest pain. No palpitations. No pedal edema. Respiratory: No cough, no shortness of breath. Abdominal: No abdominal pain. No nausea. No vomiting. Genitourinary: No dysuria. No hematuria. Musculoskeletal: No myalgias. Right foot pain. Blackness of the tip of second toe. Right second toe pain. Neurologic: No headaches. No dizziness. No lightheadedness. Skin: No rash. No change in color. Psychiatric: No depression. No anxiety. EXAM Physical Exam Narrative Exam Narrative: Afebrile. Vital signs noted. Nontoxic-appearing. HEENT: Normocephalic. Atraumatic. PERRL, EOMI. Neck soft and supple. No point tenderness or step off. Cardiovascular: Regular rate and rhythm. No murmurs, rubs, or gallops appreciated. Respiratory: No tachypnea. Lungs clear to auscultation bilaterally. Gastrointestinal: Abdomen soft, nontender, with normoactive bowel sounds. No rebound or guarding. Neurological: Awake. Alert. Nonfocal, nonlateralizing. Skin: No rash. Blackness on tip of right toe, second digit, minimally extending into nailbed distally. Skin avulsion to phalanx of second toe, no active bleeding. Musculoskeletal: No pedal edema. Full range of motion extremities. Partial amputation of left foot. Psychiatric: Tearful on examination. Const Vital Signs: 08/30/22 13:53 08/30/22 14:28 Temperature 98.3 F Temperature Source Oral Pulse Rate 123 H Respiratory Rate 18 Blood Pressure 136/90 H Blood Pressure Mean 105 Pulse Ox 98 Oxygen Delivery Method Room Air Room Air MDM MDM MDM Narrative Medical decision making narrative: I reviewed the patient's prior outpatient records. I reviewed the note from her visit to the vascular surgeon last week. Essentially, they have signed off stating that after the reperfusion, any damage that happened before would have to be followed up with podiatry for possible amputation of her toes. Additionally, I discussed the patient directly with Dr. Riccardo Ng, with vascular surgery, who is aware of the patient. He states that as stated in the notes, her toes appear improved, but the areas of eschar may require amputation by podiatry. In the emergency department today, I will work her up for osteomyelitis and obtain x-rays of the right foot to look for any bony destruction. I will obtain basic laboratory work to make sure she does not have a leukocytosis or wet gangrene of the toe, and also obtain a metabolic panel along with a lactic acid. She was bolused normal saline 1 L intravenously. I interpreted the x-ray of her right toe, and see no evidence of bony destruction of the second digit. I reviewed her laboratory work and she has a normal white count of 8.6, hemoglobin normal at 15.0, hematocrit 45.4, platelet count normal at 266. Coagulation studies were obtained for sepsis work-up and are normal with an INR of 1.0 and a PTT of 26.7. In review of her CMP, sodium low at 132 with chloride 96 consistent with mild dehydration, but she does have a normal BUN of 10 and creatinine of 0.99. She was bolused normal saline 1 L intravenously. Glucose is elevated at 400 consistent with her diabetes but she has a normal anion gap of 5. I do not feel that she is in diabetic ketoacidosis. She does have an elevated lactic acid of 2.2 which I think may be more consistent with dehydration, and in review of her laboratory with her elevated glucose her sodium is low secondary to hyperosmolality/elevated glucose. She was ordered another bolus of saline for her lactic acidosis. She states that she does not have an appointment with podiatry until 2 weeks from now. Additionally, I discussed the patient with Dr. Littlejohn, who saw the patient in the emergency department. Antibiotics were deferred to podiatry. He will admit the patient for toe amputation and consult the hospitalist/internal medicine as needed. Disposition is admit in stable condition. History & Record Review Discussion w/independent historian: Patient Additional record(s) reviewed:: Prior outpatient record, Prior ED visit and Prior labs Lab Data Attestation: I reviewed the patient's lab results. Labs: Laboratory Results - last 24 hr 08/30/22 08/30/22 08/30/22 14:29 14:29 14:29 WBC 8.6 RBC 5.43 H Hgb 15.0 Hct 45.4 MCV 83.6 MCH 27.6 MCHC 33.0 RDW Std Deviation 39.0 RDW Coeff of [place] 12.9 Plt Count 266 MPV 9.1 Immature Gran % (Auto) 0.200 Neut % (Auto) 77.4 H Lymph % (Auto) 15.4 L [place] % (Auto) 5.9 Eos % (Auto) 0.5 Baso % (Auto) 0.6 Absolute Neuts (auto) 6.7 Absolute Lymphs (auto) 1.33 Nucleated RBC % 0 PT 12.6 INR 1.0 APTT 26.7 Sodium 132 L Potassium 4.0 Chloride 96 L Carbon Dioxide 31.0 Anion Gap 5 BUN 10 Creatinine 0.99 Estim Creat Clear Calc 65.38 Est GFR (MDRD) Af Amer 76 Est GFR (MDRD) Non-Af 63 BUN/Creatinine Ratio 10.1 Glucose 400 H Lactic Acid Calcium 9.1 Total Bilirubin 0.70 AST 15 ALT 17 Alkaline Phosphatase 133 H Total Protein 7.1 Albumin 3.0 L Globulin 4.1 Albumin/Globulin Ratio 0.7 L 08/30/22 14:29 WBC RBC Hgb Hct MCV MCH MCHC RDW Std Deviation RDW Coeff of [place] Plt Count MPV Immature Gran % (Auto) Neut % (Auto) Lymph % (Auto) [place] % (Auto) Eos % (Auto) Baso % (Auto) Absolute Neuts (auto) Absolute Lymphs (auto) Nucleated RBC % PT INR APTT Sodium Potassium Chloride Carbon Dioxide Anion Gap BUN Creatinine Estim Creat Clear Calc Est GFR (MDRD) Af Amer Est GFR (MDRD) Non-Af BUN/Creatinine Ratio Glucose Lactic Acid 2.2 H* Calcium Total Bilirubin AST ALT Alkaline Phosphatase Total Protein Albumin Globulin Albumin/Globulin Ratio Radiography Diagnostic Testing: Clinical Impression(s) from Imaging Studies Foot X-Ray 08/30/22 14:30 IMPRESSION: Healed fracture of the distal portion of the fifth metatarsal. Soft tissue laceration overlying the distal portion of the second toe. Electronically Signed: Ryan Tejeda MD at 14:47 EDT , Management Discussion w/another healthcare provider: Production Quality Manager (Dr. Riccardo Ng with vascular surgery, Dr. Littlejohn with podiatry) Discharge Plan Triage Chief Complaint: Lower Extremity Injury ED Provider: Jeremiah Rawls Dx/Rx/DC Orders Clinical Impression: Dry gangrene, Foot pain, right, Atherosclerosis of right lower extremity with rest pain, Hyperglycemia, Diabetes, Lactic acidosis Prescriptions: No Action desvenlafaxine succinate 25 mg tablet extended release 24 hr 1 ea PO DAILY Label Comments: TAKE 1 TABLET BY MOUTH DAILY FOR 5 DAYS, THEN INCREASE TO 2 (TWO) TABLETS DAILY trazodone 50 mg tablet 50 mg PO DAILY glimepiride 4 mg tablet 1 tablet PO DAILY calcium carbonate 500 mg calcium (1,250 mg) tablet 1 tablet PO DAILY ivermectin 3 mg tablet 12 mg PO X1 Label Comments: take 12 mg for 1 dose then repeat evaluation in one week cilostazol 50 mg tablet 50 mg PO BID Qty: 60 2RF Nitro-Bid 2 % ointment 0.5 inch transdermal BID Qty: 30 0RF Rx Instructions: administer 2 doses/day (approx. 6 hrs apart); remove for 10-12 hrs per 24 hours atorvastatin 80 mg tablet 80 mg PO DAILY Qty: 90 3RF clopidogrel [Plavix] 75 mg tablet 75 mg PO DAILY Qty: 30 2RF tramadol 50 mg tablet 50 mg PO TID PRN (Reason: pain) Qty: 30 0RF alendronate 70 mg tablet 70 mg PO WE Label Comments: take one tablet weekly cholecalciferol (vitamin D3) 25 mcg (1,000 unit) tablet 1,000 unit PO DAILY Label Comments: TAKE 1 TABLET DAILY insulin glargine [Lantus Solostar U-100 Insulin] 100 unit/mL (3 mL) insulin pen 10 units subcut BID omeprazole 40 mg capsule,delayed release(DR/EC) 40 mg PO DAILY Qty: 30 0RF dicyclomine 20 mg tablet 20 mg PO BID Qty: 14 0RF aspirin 81 mg Capsule 81 mg PO DAILY oxycodone-acetaminophen [Percocet] 5-325 mg tablet 1 tab PO Q6H PRN (Reason: pain) 3 Days Qty: 12 0RF gabapentin [Neurontin] 300 mg capsule 300 mg PO TID Qty: 30 0RF Primary Care Provider: [facility] Ama Finney Referrals: [facility] Ama Finney [Primary Care Provider] -
--- NOTE | 2022-08-30 14:30 | RAD_ITS ---
STUDY: X-RAY - RIGHT FOOT CLINICAL: Female, 52 years old. Pain of the foot and toes. The second toe is necrotic. TECHNIQUE: 3 view(s) of the foot. COMPARISON: None. FINDINGS: There is a plantar calcaneal spur. Degenerative changes of the pineal navicular and navicular cuboid joints. Healed fracture of the distal portion of the fifth metatarsal. Normal metatarsophalangeal joint of the great toe. Normal tibial and fibular sesamoid bones. Normal interphalangeal joint of the great toe. Normal phalanges of the great toe. Normal second through fifth metatarsophalangeal joints. Normal interphalangeal joints and phalanges of the lesser toes. Soft tissue ulceration overlying the distal phalanx of the second toe. RAD/Foot min 3 Views IMPRESSION: Healed fracture of the distal portion of the fifth metatarsal. Soft tissue laceration overlying the distal portion of the second toe. Electronically Signed: Ryan Tejeda MD at 14:47 EDT ,
[2022-08-30] MEDS: 0.9% Normal Saline 1,000 ML 999 ML IV ×2 (14:35→15:47)
[2022-08-30] MEDS: oxyCODONE 5 MG Tablet PO (15:02)
[2022-08-30 15:06] LABS: Absolute Lymphocyte Count 1.33 X10^3/uL (0.83-4.51); Absolute Neutrophil Count 6.7 X10^3/uL (2.0-7.7); Basophil# 0.05 X10^3/uL; Basophil% 0.6 % (0-1); Eosinophil# 0.04 X10^3/uL; Eosinophils% 0.5 % (0-5); Hematocrit 45.4 % (37-47); Lymphocyte # 1.33 X10^3/ul (0.83-4.51); Lymphocyte % 15.4 % (19-41); Mean Corpuscular Hgb 27.6 pg (27.0-32.0); Mean Corpuscular Volume 83.6 fL (81-99); Mean Platelet Vol. 9.1 fl (6.2-12.0); Monocyte# 0.51 X10^3/uL; Monocyte% 5.9 % (0-10); NRBC Flagged by Analyzer 0 % (0-5); Neutrophil # 6.67 X10^3/uL (2.7-7.7); Neutrophil % 77.4 % (47-70); Platelet Count 266 K/mm3 (150-450); RBC Distribution Width CV 12.9 % (11.6-14.6); Red Blood Count 5.43 M/mm3 (4.2-5.4); White Blood Count 8.6 K/mm3 (4.4-11.0)
[2022-08-30 15:08] LABS: ALB/GLOB Ratio 0.7 RATIO (0.9-2.4); AST(SGOT) 15 U/L (15-37); Alanine Aminotransfer ALT/SGPT 17 U/L (13-56); Alkaline Phosphatase 133 U/L (45-117); Anion Gap 5 (5-15); BUN 10 mg/dL (7-18); BUN/Creat Ratio 10.1 RATIO (10-20); Calcium,Total 9.1 mg/dL (8.5-10.1); Chloride 96 mmol/L (98-107); Creatinine, Serum 0.99 mg/dL (0.55-1.02); EST Glomerular Filtration Rate 63 mL/min (>60); Est Glom Filt Rate - Afr Amer 76 mL/min (>60); Estimated Creatinine Clearance 65.38 ml/min; Globulin 4.1 g/dL (2.2-4.2); Glucose 400 mg/dL (74-106); Protein, Total 7.1 g/dL (6.4-8.2); Sodium Level 132 mmol/L (136-145)
[2022-08-30 15:09] LABS: Prothrombin Time (Protime)PT. 12.6 SECONDS (11.7-14.9)
[2022-08-30 15:10] LABS: Partial Thromboplast Time 26.7 Seconds (24.1-36.2)
[2022-08-30 15:24] LABS: Lactic Acid 2.2 mmol/L (0.4-1.9)
--- NOTE | 2022-08-30 15:57 | EKG12_ITS ---
Test Reason : GENERAL Blood Pressure : / mmHG Vent. Rate : 118 BPM Atrial Rate : 118 BPM P-R Int : 164 ms QRS Dur : 116 ms QT Int : 328 ms P-R-T Axes : 061 -59 089 degrees QTc Int : 459 ms Sinus tachycardia Left axis deviation Minimal voltage criteria for LVH, may be normal variant ( [place] product ) Septal infarct (cited on or before 30-AUG-2022) Abnormal ECG Confirmed by KIERSTEN HERNANDEZ, RICHY ([id number]), food expeditor RIKY HOANG ([id number]) on 09/04/2022 10:37:58 AM Referred By: Confirmed By:SARAH BURCH MD
--- NOTE | 2022-08-30 16:00 | PCM.HP.STD ---
HPI - General General Date of Admission: 08/30/22 Date of Service: 08/30/22 HPI Narrative TRENTON DENTON, is a 52 F who presents with painful reperfusion injury to right foot with dry grangrene limited to distal tuft of the right 2nd toe. Patient is a poorly controlled type II diabetic and daily smoker with recent vascular intervention via Dr. Ng on 08/06/22. Patient has noted continued pain since that procedure and was supposed to follow up with podiatry in the outpatient setting, but presented to ER today with significant pain. Patient denies any fever, chills, but notes some nausea related to her foot pain. Patient has no other complaints. [facility] Medical History CAD (coronary artery disease), [place] coronary artery CHF (congestive heart failure) GERD (gastroesophageal reflux disease) HTN (hypertension) Hx of fracture of humerus Hyperlipidemia Toe amputee Home Medications alendronate 70 mg tablet 70 mg PO WE 07/25/22 [History Last Taken Unknown] cholecalciferol (vitamin D3) 25 mcg (1,000 unit) tablet 1,000 unit PO DAILY 07/25/22 [History Last Taken Unknown] insulin glargine 100 unit/mL (3 mL) subcutaneous pen (Lantus Solostar U-100 Insulin) 10 units subcut BID 07/25/22 [History Last Taken Unknown] omeprazole 40 mg capsule,delayed release 40 mg PO DAILY #30 caps 07/25/22 [Rx Last Taken Unknown] dicyclomine 20 mg tablet 20 mg PO BID #14 tabs 08/03/22 [Rx Last Taken Unknown] atorvastatin 80 mg tablet 80 mg PO DAILY #90 tabs 08/09/22 [Rx Last Taken Unknown] calcium carbonate 500 mg calcium (1,250 mg) tablet 1 tablet PO DAILY 08/09/22 [History Last Taken Unknown] cilostazol 50 mg tablet 50 mg PO BID #60 tabs 08/09/22 [Rx Last Taken Unknown] clopidogrel 75 mg tablet (Plavix) 75 mg PO DAILY #30 tabs 08/09/22 [Rx Last Taken Unknown] desvenlafaxine succinate 25 mg tablet,extended release 24 hr 1 ea PO DAILY 08/09/22 [History Last Taken Unknown] glimepiride 4 mg tablet 1 tablet PO DAILY 08/09/22 [History Last Taken Unknown] ivermectin 3 mg tablet 12 mg PO X1 08/09/22 [History Last Taken Unknown] nitroglycerin 2 % transdermal ointment (Nitro-Bid) 0.5 inch transdermal BID #30 grams 08/09/22 [Rx Last Taken Unknown] tramadol 50 mg tablet 50 mg PO TID PRN pain #30 tabs 08/09/22 [Rx Last Taken Unknown] trazodone 50 mg tablet 50 mg PO DAILY 08/09/22 [History Last Taken Unknown] aspirin 81 mg capsule 81 mg PO DAILY 08/10/22 [History Last Taken 08/10/22] gabapentin 300 mg capsule (Neurontin) 300 mg PO TID #30 caps 08/14/22 [Rx Last Taken Unknown] oxycodone-acetaminophen 5 mg-325 mg tablet (Percocet) 1 tab PO Q6H PRN pain 3 days #12 tabs 08/14/22 [Rx Last Taken Unknown] Allergy/AdvReac Type Severity Reaction Status Date / Time latex Allergy Hives Verified 08/30/22 13:57 Family History Other Diabetes Heart disease Surgical History History of cholecystectomy Social History household members: spouse and children housing: house Smoking Status: Current every day smoker tobacco type: cigarettes alcohol intake: never what type of physical activity do you participate in: none do you feel safe at home: Yes ROS Constitutional Constitutional: Denies fatigue, fever(s) or frequent falls Eyes Eyes: Denies change in eye color, exophthalmos or nystagmus ENT HEENT: Denies dysphagia, ear discharge or mouth pain Cardiovascular Cardiovascular: Denies bluish discoloration of hand/feet, dyspnea at rest or lightheadedness Respiratory/Chest Respiratory/Chest: Denies difficulty clearing secretions, nail bed cyanosis or non-rest sleep EDS Gastrointestinal Gastrointestinal: Denies chewing difficulty, coffee ground emesis or hematemesis Genitourinary Genitourinary: Denies contractions, difficulty urinating or genital pain Musculoskeletal Musculoskeletal: Denies joint stiffness, joint swelling or stiffness Integumentary Integumentary: Denies erythema, furuncle or unusual bruising Neurologic Neurologic: Denies burning sensations, confusion or other visual disturbances Psychiatric Psychiatric: Denies change in appetite, change in libido or mood swings Vital Signs Vital Signs Vital Signs: 08/30/22 13:53 08/30/22 14:28 Temperature 98.3 F Temperature Source Oral Pulse Rate 123 H Respiratory Rate 18 Blood Pressure 136/90 H Blood Pressure Mean 105 Pulse Ox 98 Oxygen Delivery Method Room Air Room Air Weight Weight: 70.8 kg Body Mass Index (BMI) 24.4 Physical Exam Const alert and oriented x3 Constitutional Narrative: Patient has atrophic skin changes with dry stable eschar limited to distal tuft of right 2nd toe. some perinecrosis edema/erythema. No other acute signs of infection. Perforating peroneal pulse triphasic, dorsalis pedis pulse biphasic and posterior tibial pulse biphasic. No gross deformity Light touch/protective sensation diminished to bilateral feet. Results Lab / Micro Data Result Diagrams: 08/30/22 14:29 08/30/22 14:29 Labs: Laboratory Results - last 24 hr 08/30/22 14:29: WBC 8.6, RBC 5.43 H, Hgb 15.0, Hct 45.4, MCV 83.6, MCH 27.6, MCHC 33.0, RDW Std Deviation 39.0, RDW Coeff of [place] 12.9, Plt Count 266, MPV 9.1, Immature Gran % (Auto) 0.200, Neut % (Auto) 77.4 H, Lymph % (Auto) 15.4 L, [place] % (Auto) 5.9, Eos % (Auto) 0.5, Baso % (Auto) 0.6, Absolute Neuts (auto) 6.7, Absolute Lymphs (auto) 1.33, Nucleated RBC % 0 08/30/22 14:29: PT 12.6, INR 1.0, APTT 26.7 08/30/22 14:29: Sodium 132 L, Potassium 4.0, Chloride 96 L, Carbon Dioxide 31.0, Anion Gap 5, BUN 10, Creatinine 0.99, Estim Creat Clear Calc 65.38, Est GFR (MDRD) Af Amer 76, Est GFR (MDRD) Non-Af 63, BUN/Creatinine Ratio 10.1, Glucose 400 H, Calcium 9.1, Total Bilirubin 0.70, AST 15, ALT 17, Alkaline Phosphatase 133 H, Total Protein 7.1, Albumin 3.0 L, Globulin 4.1, Albumin/Globulin Ratio 0.7 L 08/30/22 14:29: Lactic Acid 2.2 H* Radiology Impression Foot X-Ray 08/30/22 14:30 IMPRESSION: Healed fracture of the distal portion of the fifth metatarsal. Soft tissue laceration overlying the distal portion of the second toe. Electronically Signed: Ryan Tejeda MD at 14:47 EDT , Assessment & Plan Assessment/Plan (1) Foot pain, right: PLAN: Exam performed radiographs/vital signs/labs reviewed Will admit for dry gangrene in setting of reperfusion injury/pain w/ possible cellulitis Will plan for definitive right 2nd digit or sunday Iv unsayn 3g q6 started A1C ordered, BG 400 currently Repeat arterial studies ordered hospitalist consulted for medical management/pre op clearance Patient underwent angioplasty 08/06/22, per vascular surgery patient cleared for digital amputation discussed smoking cessation and tight BG regulation Recommend heel weightbearing on right (2) Peripheral vascular disease, unspecified: (3) Cellulitis of right foot:
--- NOTE | 2022-08-30 16:10 | NURSING ---
MED SURG EULA TOE PAIN, GANGRENE
[2022-08-30 16:13] VITALS: BP 139/94; PULSE 121; RESP 22; TEMP 36.9; O2SAT 97
--- NOTE | 2022-08-30 16:15 | RAD_ITS ---
EXAM: XR CHEST, 2 VIEWS CLINICAL INDICATION: pre op clearance TECHNIQUE: Frontal and lateral views of the chest. This report was created using [employer] report generation technology. COMPARISON: 3 FINDINGS: LUNGS AND PLEURAL SPACES: Unremarkable. No consolidation or edema. No pneumothorax. No effusion. HEART: Unremarkable. Cardiac silhouette not enlarged. MEDIASTINUM: Central airways and mediastinal contour are unremarkable. BONES/JOINTS: Right proximal humeral fracture. SOFT TISSUES: Unremarkable. RAD/Chest PA and Lateral IMPRESSION: Right proximal humeral fracture. Electronically Signed: Sebastien Mireles MD at 16:45 EDT ,
[2022-08-30] MEDS: Ondansetron 4 MG/2 ML Vial IV ×2 (16:42→20:55)
[2022-08-30 16:50] LABS: Hemoglobin A1c 11.5 % (3.8-5.6)
[2022-08-30 17:01] VITALS: BP 142/101; PULSE 118; RESP 18; O2SAT 97
[2022-08-30 18:47] LABS: Reflex Lactate? Y
--- NOTE | 2022-08-30 19:44 | PCM.PN.HOSP ---
Reason for Visit Reason for Visit: Diagnoses Peripheral vascular disease, unspecified (08/30/22) Cellulitis of right lower limb (08/30/22) Pain in right foot (08/30/22) Subjective Subjective Patient was seen and examined today at request of podiatry, she is a 52-year-old white female came to the ER today with complaints of pain and dry gangrene to the distal area of her right second toe. Patient's chronic medical problems include type 2 diabetes, peripheral vascular disease, essential hypertension, hyperlipidemia, GERD, and a history of congestive heart failure. Patient does not follow with a consumer services consultant, she is being seen by her PCP. Objective Data Objective Data Vital Signs: Vital Signs Temp Pulse Resp BP Pulse Ox O2 Del Method 98.4 F 118 H 18 142/101 H 97 Room Air 08/30/22 16:13 08/30/22 17:01 08/30/22 17:01 08/30/22 17:01 08/30/22 17:01 08/30/22 16:13 Oxygen Delivery Method Room Air Weight: 70.8 kg Body Mass Index (BMI) 24.4 Intake & Output: Intake and Output for Last 24 Hours 08/28/22 08/29/22 08/30/22 23:59 23:59 23:59 Intake Total 1999 Balance 1999 Lab / Micro Data Result Diagrams: 08/30/22 14:29 08/30/22 14:29 Labs: Laboratory Results - last 24 hr 08/30/22 14:29: WBC 8.6, RBC 5.43 H, Hgb 15.0, Hct 45.4, MCV 83.6, MCH 27.6, MCHC 33.0, RDW Std Deviation 39.0, RDW Coeff of Spencer 12.9, Plt Count 266, MPV 9.1, Immature Gran % (Auto) 0.200, Neut % (Auto) 77.4 H, Lymph % (Auto) 15.4 L, [place] % (Auto) 5.9, Eos % (Auto) 0.5, Baso % (Auto) 0.6, Absolute Neuts (auto) 6.7, Absolute Lymphs (auto) 1.33, Nucleated RBC % 0 08/30/22 14:29: PT 12.6, INR 1.0, APTT 26.7 08/30/22 14:29: Sodium 132 L, Potassium 4.0, Chloride 96 L, Carbon Dioxide 31.0, Anion Gap 5, BUN 10, Creatinine 0.99, Estim Creat Clear Calc 65.38, Est GFR (MDRD) Af Amer 76, Est GFR (MDRD) Non-Af 63, BUN/Creatinine Ratio 10.1, Glucose 400 H, Calcium 9.1, Total Bilirubin 0.70, AST 15, ALT 17, Alkaline Phosphatase 133 H, Total Protein 7.1, Albumin 3.0 L, Globulin 4.1, Albumin/Globulin Ratio 0.7 L 08/30/22 14:29: Lactic Acid 2.2 H* 08/30/22 14:29: Hemoglobin A1c 11.5 H Radiography Diagnostic Testing: Radiology Impression Foot X-Ray 08/30/22 14:30 IMPRESSION: Healed fracture of the distal portion of the fifth metatarsal. Soft tissue laceration overlying the distal portion of the second toe. Electronically Signed: Ryan Tejeda MD at 14:47 EDT , Chest X-Ray 08/30/22 16:15 IMPRESSION: Right proximal humeral fracture. Electronically Signed: Sebastien Mireles MD at 16:45 EDT , Physical Exam Const alert, oriented x3, no apparent distress, average body habitus and healthy appearing Constitutional Narrative: Patient appears older than her stated age General Appearance: cooperative, well kempt and well developed Orientation / Consciousness: awake, oriented to person, oriented to place and oriented to time HEENT normocephalic, head/scalp atraumatic and moist oral mucous membranes Eyes PERRL, EOMs intact bilaterally and conjunctivae normal Neck supple, no JVD, thyroid normal and no carotid bruits General: trachea midline Resp normal respiratory effort, no retractions, no use of accessory muscles and clear to auscultation bilaterally Auscultation: Negative for rales, rhonchi or wheezes Cardio regular rate, regular rhythm, S1 normal heart sound, S2 normal heart sound, no murmurs, no rub and no gallops GI normal to inspection, nondistended, normoactive bowel sounds, soft to palpation, non-tender and non-distended Extremity Extremity Narrative: Gangrenous changes are noted to the right second toe with dry gangrene present along with some swelling and tenderness of the area Skin Skin Narrative: Examination of the patient's right foot reveals an area of dry gangrene to the right second toe along with some swelling of the area and tenderness to palpation. Neuro oriented x3, CN's II-XII intact bilaterally, moves all extremities, no focal motor deficits and no sensory deficits noted Sensorium / Orientation: awake and alert Speech: speech normal Psych affect normal Assessment & Plan Assessment/Plan (1) Diabetes mellitus, type 2: PLAN: Plan 1. Type 2 diabetes-under poor control-patient will remain on her home insulin therapy, fingerstick blood sugars will be obtained and sliding scale insulin will be used to cover elevated blood sugars. Patient's glucose in the ER today was 400, her hemoglobin A1c was 11.5 #2 coronary artery disease-patient's medical record reveals that she had a diagnosis of diffuse severe disease of her distal LAD in 2018, and her chart it was stated that she was sent to the [facility] for further evaluation and it was determined that she did not need any intervention. Patient also has a past history of a reduced ejection fraction, unfortunately there is no record at this institution of the patient ever having an echocardiogram. I will order an echocardiogram in the morning to assess the patient's cardiac function. I will order an EKG on the patient for the morning. #3 peripheral vascular disease-according to podiatry, patient does not need any intervention in her right leg at this time, she has a past history of stents. Patient is on antiplatelet drugs currently #4 dry gangrene of the second right toe-patient was admitted under podiatry, she will undergo an amputation of this area tomorrow afternoon #5 lactic acidosis-probably secondary to gangrene of her right second toe, I do not believe the patient is septic Total clinical time spent by myself addressing the patient's medical issues, reviewing all her data, and collaborating with the patient's care team: 50 minutes Charges/Coding Visit Charges Inpatient E&M: 69381 [facility] Hosp L3
[2022-08-30 19:57] LABS: Lactic Acid 1.1 mmol/L (0.4-1.9)
[2022-08-30 20:00] VITALS: BMI 24.4
[2022-08-30] MEDS: Morphine 4 MG/ML Syringe IV (20:54)
[2022-08-30] MEDS: Gabapentin 300 MG Capsule PO (22:12)
[2022-08-30] MEDS: Insulin Glargine-YFGN 100 UNIT/ML Pen 10 UNIT SC (22:15)
[2022-08-30] MEDS: Dicyclomine 10 MG Capsule 20 MG PO (22:17)
[2022-08-30] MEDS: Cilostazol 50 MG Tablet PO (22:18)
[2022-08-30] MEDS: Atorvastatin Calcium 80 MG Tablet PO (22:18)
[2022-08-30] MEDS: traZODone 50 MG Tablet PO (22:19)
[2022-08-30 22:45] VITALS: BP 112/74; PULSE 120; RESP 16; TEMP 36.7; O2SAT 96
[2022-08-30 22:55] LABS: Bedside Glucose 270 mg/dL (74-106)
[2022-08-31] VITALS (10 sets, daily range): BP systolic 86–121; BP diastolic 58–87; PULSE 97–118; RESP 16–18; TEMP 36.1–36.9; O2SAT 94–100; BMI 24.4
--- NOTE | 2022-08-31 | BON_PTH ---
PATIENT: TRENTON DENTON LOC: MS3 U#:[id number] AGE/SX: 52/F ROOM: VA311 RE08/30/[address]: Dr. Jesse Littlejohn DPM : 1970 BED: 1 DIS: 09/02/2022 SPEC #: [id number] RECD: 08/31/22 16:46 STATUS: JEFFREY LENI #: [id number] ZINA: 08/31/22 00:[address]: Jesse Littlejohn DEPT: SURGICAL PATHOLOGY RECD BY: Mode Smith ENTERED: 09/01/22 10:13 SP TYPE: Bone OTHR DR: Dr. All Rosenberg, [facility] Tissues: Bone of foot, NOS Procedures: Decalcification bone/plaque Surgery Specimen Level IV HEADER OPERATION: Second toe amputation PRE-OP DIAGNOSIS: Dry gangrene of second right toe TISSUE SUBMITTED: Right second toe MICROSCOPIC DIAGNOSIS Right second toe, amputation: Acute osteomyelitis. Bone and tissue at margin of resection with reparative and reactive change. AM:junior 09/06/2022 MICROSCOPIC DESCRIPTION Slides are reviewed. GROSS DESCRIPTION Received in fixative is one container labeled with the patient's name and designated right second toe. The specimen consists of a toe with attached bone, nail and soft tissue measuring 5.5 cm in length and 2.0 cm in diameter. The bone and soft tissue at margin of resection are grossly unremarkable. The distal tip of the toe in an area measuring 1.5 x 1.0 cm appears to be mummified. [employer] sections are submitted in two cassettes as follows: 1 - skin and soft tissue at margin of resection, 2 - longitudinal section of toe after decalcification. / AM:junior 09/01/2022 TC: 2 CPT: 63881, 74677
[2022-08-31] MEDS: oxyCODONE 5 MG Tablet 10 MG PO ×4 (01:35→21:18)
[2022-08-31] MEDS: Gabapentin 300 MG Capsule PO ×2 (05:22→21:19)
--- NOTE | 2022-08-31 05:55 | ECHOCS_ITS ---
Reason For Study: CAD/ASHD Procedure This was a 2D Doppler, Color Flow transthoracic echocardiogram. The study was technically difficult. Exam performed portable in patient room. Left Ventricle Mildly dilated left ventricle. The estimated ejection fraction is 15 %. There is evidence of diastolic dysfunction. Mild hypokinesis of the basal portion of the LV. Severe hypokinesis to akinesis of the rest of the LV. Right Ventricle Normal RV size. Normal systolic function. Atria Normal left atrium. Normal right atrium. No doppler evidence for ASD. Mitral Valve There is no mitral valve stenosis. Trivial mitral valve insufficiency. Tricuspid Valve There is no tricuspid stenosis. Trivial tricuspid valve insufficiency. Unable to estimate RV systolic pressure due to insufficient tricuspid regurgitant envelope. Aortic Valve Trisinus/trileaflet aortic valve. There is no aortic stenosis. No aortic valve insufficiency. Pulmonic Valve There is no pulmonic valvular stenosis. No pulmonic valve insufficiency. Great Vessels Normal aortic root. Pericardium/Pleural Small pericardial effusion. Echodensity in the pericardial space suggestive of thrombus. Medication Diluted definity 3ml given slow IV push to enhance endocardial definition. MMode/2D Measurements & Calculations LVIDd: 5.4 cm IVSd: 1.1 cm Ao root diam: 2.7 cm LVIDs: 4.3 cm LVPWd: 1.1 cm RVDd: 2.7 cm FS: 20.0 % LAV(MOD-bp): 34.7 ml LVAd ap4: 45.7 cm2 SV(MOD-sp4): 46.8 ml LAV(MOD-bp) Indexed: 19.1 ml/m2 LVLd ap4: 8.9 cm LAV(MOD-sp2): 34.1 ml EDV(MOD-sp4): 188.3 ml LAV(MOD-sp4): 31.4 ml EDV(sp4-el): 198.7 ml LVAs ap4: 38.6 cm2 LVLs ap4: 8.6 cm ESV(MOD-sp4): 141.5 ml ESV(sp4-el): 148.2 ml EF(MOD-sp4): 24.8 % EF(sp4-el): 25.4 % SV(sp4-el): 50.5 ml LA A4 area: 13.7 cm2 LA dimension(2D): 3.5 cm RA A4 area: 11.9 cm2 Doppler Measurements & Calculations MV E max disha: 113.0 cm/sec Ao V2 max: 138.8 cm/sec LV V1 max: 90.0 cm/sec Ao max P.7 mmHg LV V1 max P.2 mmHg PA V2 max: 106.7 cm/sec ECHO/Echo Complete W/ Contrast Interpretation Summary The estimated ejection fraction is 15 %. There is evidence of diastolic dysfunction. Mild hypokinesis of the basal portion of the LV. Severe hypokinesis to akinesis of the rest of the LV. Trivial mitral valve insufficiency. Small pericardial effusion. Ordering Physician: All Rosenberg Referring Physician: NATHALY LAINEZ Performed By: Adela Pimentel RDCS
[2022-08-31 06:38] LABS: Absolute Lymphocyte Count 1.81 X10^3/uL (0.83-4.51); Absolute Neutrophil Count 4.4 X10^3/uL (2.0-7.7); Basophil# 0.05 X10^3/uL; Basophil% 0.7 % (0-1); Eosinophil# 0.09 X10^3/uL; Eosinophils% 1.3 % (0-5); Hematocrit 41.5 % (37-47); Hemoglobin 13.6 g/dL (12.0-15.0); Lymphocyte # 1.81 X10^3/ul (0.83-4.51); Lymphocyte % 26.6 % (19-41); Mean Corp Hgb Conc 32.8 g/dL (32-36); Mean Corpuscular Volume 85.4 fL (81-99); Mean Platelet Vol. 9.1 fl (6.2-12.0); Monocyte# 0.44 X10^3/uL; Monocyte% 6.5 % (0-10); NRBC Flagged by Analyzer 0 % (0-5); Neutrophil % 64.6 % (47-70); Platelet Count 227 K/mm3 (150-450); RBC Distribution Width SD 39.9 fl (35.1-43.9); Red Blood Count 4.86 M/mm3 (4.2-5.4); White Blood Count 6.8 K/mm3 (4.4-11.0)
[2022-08-31] MEDS: Ondansetron 4 MG/2 ML Vial IV ×2 (07:01→17:00)
[2022-08-31 07:15] LABS: Anion Gap 3 (5-15); BUN 9 mg/dL (7-18); BUN/Creat Ratio 14.6 RATIO (10-20); Calcium,Total 8.8 mg/dL (8.5-10.1); Chloride 108 mmol/L (98-107); Creatinine, Serum 0.62 mg/dL (0.55-1.02); EST Glomerular Filtration Rate 109 mL/min (>60); Est Glom Filt Rate - Afr Amer 131 mL/min (>60); Estimated Creatinine Clearance 104.39 ml/min; Glucose 221 mg/dL (74-106); Potassium 3.7 mmol/L (3.5-5.1); Sodium Level 137 mmol/L (136-145)
[2022-08-31] MEDS: 0.9% Saline Lock 10 ML Syringe IV (09:23)
[2022-08-31 12:21] LABS: Bedside Glucose 179 mg/dL (74-106)
[2022-08-31] MEDS: Lactated Ringers 1,000 ML 15 ML IV (14:04)
--- NOTE | 2022-08-31 15:24 | CASEMGMT ---
RN CM note: To room to complete initial RN CM assess. Pt out of room at this time @ OR. Bhupendra MYERSN RN CM
[2022-08-31] MEDS: Bupivacaine 0.25% 30 ML Vial (15:34)
--- NOTE | 2022-08-31 15:55 | OP.PCM_ITS ---
Problems Associated Problem List Diagnoses (1) Cellulitis of right foot: (2) Dry gangrene: (3) Peripheral vascular disease, unspecified: Report of Operation Date of Procedure: 08/31/22 Pre-Operative Diagnosis: Right second digit dry gangrene secondary to peripheral arterial disease Post-Operative Diagnosis: Same Surgery/Procedure Performed:: Right second toe amputation Description of Surgical Findings:: Patient had a dry necrotic distal tuft ulceration with some reperfusion injury secondary to revascularization. In order to remove necrotic tissue to allow for close soft tissue envelope decision was made for right second digit amputation. This was cleared by vascular surgery Surgeon: Jesse Littlejohn grass cutter: None Type of Anesthesia: Local MAC Special Medications: 30 cc 0.25% Marcaine plain Specimen's removed: Right second toe Drains: None Estimated Blood Loss (mL): 3 cc Description of Procedure: Patient brought back the operating placed comfortably in supine position on the operating room table. Patient induced under MAC anesthesia. No tourniquet was used. Hip bump was placed on the right lower extremity neck on a external rotation. Right lower extremity scrubbed prepped draped using typical aseptic fashion. A Diego block was performed to the second ray using 10 cc of 0.25% Marcaine plain. Additional 20 cc were used at the end of the case using the same technique. A fishmouth incision was made just distal to the level of the second metatarsal phalangeal joint and once cleared by anesthesia this was made full- thickness down to level of metatarsophalangeal joint using #15 blade using atraumatic technique the second digit was disarticulated at the level of metatarsal phalangeal joint the site was examined and the bleeders were identif ied and cauterized. There is noted to be some healthy bleeding to the site but this was less than normal. Site was flushed with copious amounts of normal sterile saline right second digit was passed the back table for pathologic examination. Incisional closure performed with simple interrupted technique using 4-0 Prolene. Dressed incision with Betadine Adaptic 4 x 4's Kerlix and a Oswald wrap wrapped with no compression. Patient was transferred to PACU vital signs stable vascular status intact to all digits and right lower extremity. Patient tolerated procedure and anesthesia well apparent satisfactory condition will be transferred back to floor likely discharge tomorrow. Admit VTE Documentation VTE Present on Admission: Yes VTE Pharm Prophylaxis ordered?: Yes
--- NOTE | 2022-08-31 16:02 | WOUNDNOTE ---
wound photo: right 2nd toe
--- NOTE | 2022-08-31 16:02 | WOUNDNOTE ---
wound photo: right 2nd toe
--- NOTE | 2022-08-31 16:58 | PCM.PN.HOSP ---
Reason for Visit Reason for Visit: Diagnoses Type 2 diabetes mellitus without complications (08/30/22) Peripheral vascular disease, unspecified (08/30/22) Gangrene, not elsewhere classified (08/30/22) Cellulitis of right lower limb (08/30/22) Pain in right foot (08/30/22) Subjective Subjective Patient was seen and examined today, her EKG showed no acute ischemic changes. Patient's echocardiogram however showed a severely reduced ejection fraction of 15%. Patient will need follow-up on this as an outpatient, I called her primary care office ([facility]) and talk to Lory who is the nurse practitioner there, she will follow-up with the patient after discharge from the hospital. Objective Data Objective Data Vital Signs: Vital Signs Temp Pulse Resp BP Pulse Ox O2 Del Method O2 Flow Rate 98 F 108 H 18 115/87 H 98 Room Air 4 08/31/22 16:37 08/31/22 16:37 08/31/22 16:37 08/31/22 16:37 08/31/22 16:37 08/31/22 16:37 08/31/22 16:10 Oxygen Flow Rate (L/min) 4 Oxygen Delivery Method Room Air Weight: 70.8 kg Body Mass Index (BMI) 24.4 Intake & Output: Intake and Output for Last 24 Hours 08/29/22 08/30/22 08/31/22 23:59 23:59 23:59 Intake Total 2111 336 / 336 Balance 2111 336 / 336 Lab / Micro Data Result Diagrams: 08/31/22 06:15 08/31/22 06:15 Labs: Laboratory Results - last 24 hr 08/30/22 19:23: Lactic Acid 1.1 08/30/22 22:14: POC Glucose 270 H 08/31/22 06:15: WBC 6.8, RBC 4.86, Hgb 13.6, Hct 41.5, MCV 85.4, MCH 28.0, MCHC 32.8, RDW Std Deviation 39.9, RDW Coeff of Spencer 13.0, Plt Count 227, MPV 9.1, Immature Gran % (Auto) 0.300, Neut % (Auto) 64.6, Lymph % (Auto) 26.6, [place] % (Auto) 6.5, Eos % (Auto) 1.3, Baso % (Auto) 0.7, Absolute Neuts (auto) 4.4, Absolute Lymphs (auto) 1.81, Nucleated RBC % 0 08/31/22 06:15: Sodium 137, Potassium 3.7, Chloride 108 H, Carbon Dioxide 26.0, Anion Gap 3 L, BUN 9, Creatinine 0.62, Estim Creat Clear Calc 104.39, Est GFR (MDRD) Af Amer 131, Est GFR (MDRD) Non-Af 109, BUN/Creatinine Ratio 14.6, Glucose 221 H, Calcium 8.8 08/31/22 11:27: POC Glucose 179 H Micro: Microbiology 08/30/22 15:23 Urine, Clean Catch Urine Culture - Final Mixed Gram Positive Organisms Radiography Diagnostic Testing: Radiology Impression Echocardiogram 08/31/22 05:55 Interpretation Summary The estimated ejection fraction is 15 %. There is evidence of diastolic dysfunction. Mild hypokinesis of the basal portion of the LV. Severe hypokinesis to akinesis of the rest of the LV. Trivial mitral valve insufficiency. Small pericardial effusion. Ordering Physician: All Rosenberg Referring Physician: NATHALY LAINEZ Performed By: Adela Pimentel RDCS Physical Exam Narrative alert, oriented x3, no apparent distress, average body habitus and healthy appearing Constitutional Narrative: Patient appears older than her stated age General Appearance: cooperative, well kempt and well developed Orientation / Consciousness: awake, oriented to person, oriented to place and oriented to time HEENT normocephalic, head/scalp atraumatic and moist oral mucous membranes Eyes PERRL, EOMs intact bilaterally and conjunctivae normal Neck supple, no JVD, thyroid normal and no carotid bruits General: trachea midline Resp normal respiratory effort, no retractions, no use of accessory muscles and clear to auscultation bilaterally Auscultation: Negative for rales, rhonchi or wheezes Cardio regular rate, regular rhythm, S1 normal heart sound, S2 normal heart sound, no murmurs, no rub and no gallops GI normal to inspection, nondistended, normoactive bowel sounds, soft to palpation, non-tender and non-distended Extremity Extremity Narrative: Gangrenous changes are noted to the right second toe with dry gangrene present along with some swelling and tenderness of the area Skin Skin Narrative: Examination of the patient's right foot reveals an area of dry gangrene to the right second toe along with some swelling of the area and tenderness to palpation. Neuro oriented x3, CN's II-XII intact bilaterally, moves all extremities, no focal motor deficits and no sensory deficits noted Sensorium / Orientation: awake and alert Speech: speech normal Psych affect normal Assessment & Plan Assessment/Plan (1) Atherosclerosis of lower extremity: (2) Diabetes mellitus, type 2: PLAN: Plan 1. Type 2 diabetes-under poor control-patient will remain on her home insulin therapy, fingerstick blood sugars will be obtained and sliding scale insulin will be used to cover elevated blood sugars. #2 coronary artery disease-patient's medical record reveals that she had a diagnosis of diffuse severe disease of her distal LAD in 2018, and in her chart it was stated that she was sent to the [facility] for further evaluation and it was determined that she did not need any intervention. Patient also has a past history of a reduced ejection fraction. Again, patient is echocardiogram today shows severely reduced ejection fraction of 15%, she will need follow-up as an outpatient concerning this, I will start her on lisinopril and carvedilol. I talked with podiatry about this. #3 peripheral vascular disease-according to podiatry, patient does not need any intervention in her right leg at this time, she has a past history of stents. Patient is on antiplatelet drugs currently #4 dry gangrene of the second right toe-patient underwent amputation of the toe today #5 lactic acidosis-probably secondary to gangrene of her right second toe, I do not believe the patient is septic Total clinical time spent by myself addressing the patient's medical issues, reviewing all her data, and collaborating with the patient's care team: 35 minutes Charges/Coding Visit Charges Inpatient E&M: 53544 Subs Hosp L2
[2022-08-31] MEDS: Lisinopril 10 MG Tablet PO (17:00)
[2022-08-31 17:36] LABS: Bedside Glucose 138 mg/dL (74-106)
[2022-08-31] MEDS: Dicyclomine 10 MG Capsule 20 MG PO (21:18)
[2022-08-31] MEDS: traZODone 50 MG Tablet PO (21:18)
[2022-08-31] MEDS: Atorvastatin Calcium 80 MG Tablet PO (21:18)
[2022-08-31] MEDS: Cilostazol 50 MG Tablet PO (21:24)
[2022-08-31] MEDS: Carvedilol 3.125 MG TABLET PO (21:24)
[2022-08-31] MEDS: Insulin Lispro 100 UNIT/ML INSULN.PEN SC (21:31)
[2022-08-31] MEDS: Insulin Glargine-YFGN 100 UNIT/ML Pen 10 UNIT SC (21:34)
[2022-08-31 21:55] LABS: Bedside Glucose 323 mg/dL (74-106)
[2022-09-01] MEDS: oxyCODONE 5 MG Tablet 10 MG PO ×4 (01:26→18:59)
[2022-09-01] MEDS: Ondansetron 4 MG/2 ML Vial IV ×3 (01:26→16:33)
[2022-09-01 05:00] VITALS: BP 118/75; PULSE 104; RESP 16; TEMP 36.7; O2SAT 94
[2022-09-01] MEDS: Gabapentin 300 MG Capsule PO ×3 (06:11→20:16)
[2022-09-01 08:18] VITALS: BP 121/87; PULSE 102; RESP 16; TEMP 36.5; O2SAT 99
[2022-09-01] MEDS: Aspirin 81 MG TAB.CHEW PO (08:23)
[2022-09-01 08:26] VITALS: PULSE 102
[2022-09-01] MEDS: Morphine 4 MG/ML Syringe IV ×2 (08:41→20:12)
[2022-09-01] MEDS: Insulin Glargine-YFGN 100 UNIT/ML Pen 10 UNIT SC ×2 (08:45→21:22)
[2022-09-01 08:51] LABS: Bedside Glucose 157 mg/dL (74-106)
[2022-09-01] MEDS: Pantoprazole Sodium 40 MG Tablet PO (10:17)
[2022-09-01] MEDS: Cilostazol 50 MG Tablet PO ×2 (10:17→20:15)
[2022-09-01] MEDS: Venlafaxine XR 37.5 MG Capsule PO (10:17)
[2022-09-01] MEDS: Clopidogrel Bisulfate 75 MG Tablet PO (10:17)
[2022-09-01] MEDS: Lisinopril 10 MG Tablet PO (10:18)
[2022-09-01] MEDS: Carvedilol 3.125 MG TABLET PO ×2 (10:31→20:13)
[2022-09-01] MEDS: Dicyclomine 10 MG Capsule 20 MG PO ×2 (10:31→20:16)
[2022-09-01] MEDS: FLU VACC QS2022-23(6MOS UP)/PF 60 MCG/0.5 ML SYRINGE IM (10:32)
--- NOTE | 2022-09-01 11:29 | WOUNDNOTE ---
wound photo: right foot
--- NOTE | 2022-09-01 11:29 | WOUNDNOTE ---
wound photo: right foot
--- NOTE | 2022-09-01 12:00 | PCM.PROGNOTE ---
Subjective Subjective 52-year-old female 1 day postop status post right second digit amputation. She notes some improvement in her pain since amputation of the digit. Patient denies constitutional symptoms. Patient denies signs of DVT. Patient passing gas and passing urine. Objective Data Objective Data Vital Signs: Vital Signs Temp Pulse Resp BP Pulse Ox O2 Del Method O2 Flow Rate 97.7 F L 102 H 16 121/87 H 99 Room Air 4 09/01/22 08:18 09/01/22 08:26 09/01/22 08:18 09/01/22 08:18 09/01/22 08:18 09/01/22 08:26 08/31/22 16:10 Oxygen Flow Rate (L/min) 4 Oxygen Delivery Method Room Air Weight: 70.8 kg Body Mass Index (BMI) 24.4 Intake & Output: Intake and Output for Last 24 Hours 08/30/22 08/31/22 09/01/22 23:59 23:59 23:59 Intake Total 2111 560 / 560 112 / 112 Balance 2111 560 / 560 112 / 112 Lab / Micro Data Result Diagrams: 08/31/22 06:15 08/31/22 06:15 Labs: Laboratory Results - last 24 hr 08/31/22 11:27: POC Glucose 179 H 08/31/22 16:49: POC Glucose 138 H 08/31/22 21:27: POC Glucose 323 H 09/01/22 08:14: POC Glucose 157 H Micro: Microbiology 08/30/22 15:23 Blood Culture (Wb) - Right Forearm Blood Culture - Preliminary No growth in 48 hours. 08/30/22 14:29 Blood Culture (Wb) - Right Forearm Blood Culture - Preliminary No growth in 48 hours. 08/30/22 15:23 Urine, Clean Catch Urine Culture - Final Mixed Gram Positive Organisms Physical Exam Narrative Neurovascular status unchanged. No signs of DVT. Incision to right second digit amputation site well approximated with intact sutures. No signs of infection or skin breakdown. Assessment & Plan Assessment/Plan (1) Peripheral vascular disease, unspecified: PLAN: Exam performed. Patient is incision healing well. We will keep overnight due to some additional pain. Patient denying SNF placement. She will maintain heel weightbearing in surgical shoe upon discharge for limited ambulation until incisional healing. Dressing redressed with Betadine Adaptic 4 x 4's dry sterile dressing. Patient should quit smoking. Discussed with patient. No antibiotics upon discharge due to elimination of necrotic tissue. (2) Dry gangrene: (3) Foot pain, right:
[2022-09-01 12:06] LABS: Bedside Glucose 232 mg/dL (74-106)
[2022-09-01] MEDS: Glucerna Shake 120 ML LIQUID PO ×2 (12:19→16:33)
[2022-09-01] MEDS: Insulin Lispro 100 UNIT/ML INSULN.PEN SC ×3 (12:20→21:21)
--- NOTE | 2022-09-01 13:40 | CASEMGMT ---
RN?CM?LANDSCAPE AND YARDWORK LABORER?CM?to room to meet with patient for initial transition planning/care coordination?assessment.?RN?CM?introduced self and role at [facility].? Pt voices understanding and consents to?assessment?at this time.? Pt resting in bed in no distress at this time.? Pt is A/O at this time and answers all questions appropriately.?? Care providers, pharmacy, and demographics verified/updated at this time. PCP: Ama Neff. Specialists:Pt sees a counselor, Tiffany, and psychiatrist, Priscila, @ [facility]. Preferred Pharmacy: [facility] Insurance: [employer] Prescription Benefit:?yes Living Will/HPOA:?Pt does not currently have LW/HCPOA and would like to complete. Nancy STOKES, made aware. Pt made aware, if SW unable to meet w/her prior to discharge that AD can be completed as an OP. She voices understanding. LNOK: Pt states she is still legally , but is from her . She states she does not know where he is and she does not want him involved w/her. Pt has an 18-yr-old dtr, Ashlee, and a 14-yr-old son, who is in foster care. Living Arrangements: Lives w/her dtr, Ashlee, in 2-story apt w/one step to enter. FFSU. Pt states she is indep w/ADL's and IADL's and manages her own medications. Transportation:?mother. DME: ?States has the following DME:?rollator and functioning glucometer w/supplies ?Pt states no need for further DME at this time.? HHC/SNF: SNF in [place] but does not remember name of agency and has had HHC in the past. Pt interested in HHC for wound care/dsg changes. She was made aware SN would not be able to come daily for dressing changes. She states she is able to her own dressing changes, as she has done them in the past. Yenni, MS3 CHAYITO BARKLEY, made aware. Pt wishes to return home and states has no concerns with going home at time of discharge.?CM?to follow for any further discharge planning/needs.? Pt voices no further concerns/needs at this time.? Advised pt to ask for?CM?if any further questions/concerns/needs arise.? Voices understanding. PLAN:?? Bhupendra BSN?RN?CM
--- NOTE | 2022-09-01 14:13 | CASEMGMT ---
Addendum entered by Yenni Edwards 09/01/22 14:57: Received tc from Mi at [facility] that they can accept pt for SOC on Sunday. No other agency has responded. CHAYITO BARKLEY into pt room to make aware. Pt states she will go with [facility]. Addendum entered by Yenni Edwards 09/01/22 14:26: CHAYITO BARKLEY back into pt room, pt has chosen [facility], N, [facility], [facility] and [facility]. TC to Mi at [facility], referral left via . Also sent referral to the agencies via careport at this time d/t weekend dc. Will await acceptance. Original Note: CHAYITO BARKLEY into pt room, as RN FILIPPO made aware pt is interested in HHC. Pt states she would like someone to monitor her wound and she would be interested in DM teaching. Patient was provided a list of HHC providers including quality and resource use data and consistent with the patient?s preferred geographic region, medical needs, and insurance network were provided from the CarePort Guide. Pt to review and CHAYITO BARKLEY to check back.
[2022-09-01] MEDS: 0.9% Saline Lock 10 ML Syringe IV (14:15)
--- NOTE | 2022-09-01 15:18 | PCM.PN.HOSP ---
Reason for Visit Reason for Visit: Diagnoses Type 2 diabetes mellitus without complications (08/30/22) Unspecified atherosclerosis of [place] arteries of extremities, unspecified extremity (08/30/22) Peripheral vascular disease, unspecified (08/30/22) Gangrene, not elsewhere classified (08/30/22) Cellulitis of right lower limb (08/30/22) Pain in right foot (08/30/22) Subjective Subjective Was seen and examined today, she is complaining of postop pain but otherwise is doing well, she has no complaints of any shortness of breath or chest discomfort. Objective Data Objective Data Vital Signs: Vital Signs Temp Pulse Resp BP Pulse Ox O2 Del Method O2 Flow Rate 97.7 F L 102 H 16 121/87 H 99 Room Air 4 09/01/22 08:18 09/01/22 08:26 09/01/22 08:18 09/01/22 08:18 09/01/22 08:18 09/01/22 08:26 08/31/22 16:10 Oxygen Flow Rate (L/min) 4 Oxygen Delivery Method Room Air Weight: 70.8 kg Body Mass Index (BMI) 24.4 Intake & Output: Intake and Output for Last 24 Hours 08/30/22 08/31/22 09/01/22 23:59 23:59 23:59 Intake Total 2111 560 / 560 824 / 824 Balance 2111 560 / 560 824 / 824 Lab / Micro Data Result Diagrams: 08/31/22 06:15 08/31/22 06:15 Labs: Laboratory Results - last 24 hr 08/31/22 16:49: POC Glucose 138 H 08/31/22 21:27: POC Glucose 323 H 09/01/22 08:14: POC Glucose 157 H 09/01/22 11:43: POC Glucose 232 H Micro: Microbiology 08/30/22 15:23 Blood Culture (Wb) - Right Forearm Blood Culture - Preliminary No growth in 48 hours. 08/30/22 14:29 Blood Culture (Wb) - Right Forearm Blood Culture - Preliminary No growth in 48 hours. 08/30/22 15:23 Urine, Clean Catch Urine Culture - Final Mixed Gram Positive Organisms Physical Exam Narrative alert, oriented x3, no apparent distress, average body habitus and healthy appearing Constitutional Narrative: Patient appears older than her stated age General Appearance: cooperative, well kempt and well developed Orientation / Consciousness: awake, oriented to person, oriented to place and oriented to time HEENT normocephalic, head/scalp atraumatic and moist oral mucous membranes Eyes PERRL, EOMs intact bilaterally and conjunctivae normal Neck supple, no JVD, thyroid normal and no carotid bruits General: trachea midline Resp normal respiratory effort, no retractions, no use of accessory muscles and clear to auscultation bilaterally Auscultation: Negative for rales, rhonchi or wheezes Cardio regular rate, regular rhythm, S1 normal heart sound, S2 normal heart sound, no murmurs, no rub and no gallops GI normal to inspection, nondistended, normoactive bowel sounds, soft to palpation, non-tender and non-distended Extremity Extremity Narrative: Gangrenous changes are noted to the right second toe with dry gangrene present along with some swelling and tenderness of the area Skin Skin Narrative: Examination of the patient's right foot reveals an area of dry gangrene to the right second toe along with some swelling of the area and tenderness to palpation. Neuro oriented x3, CN's II-XII intact bilaterally, moves all extremities, no focal motor deficits and no sensory deficits noted Sensorium / Orientation: awake and alert Speech: speech normal Psych affect normal Assessment & Plan Assessment/Plan (1) Diabetes mellitus, type 2: (2) Atherosclerosis of lower extremity: PLAN: Plan 1. Type 2 diabetes-under poor control-patient will remain on her home insulin therapy, fingerstick blood sugars will be obtained and sliding scale insulin will be used to cover elevated blood sugars. #2 coronary artery disease-extent unknown at this time, she will need further work-up as an outpatient, patient is on aspirin and Plavix #3 peripheral vascular disease-according to podiatry, patient does not need any intervention in her right leg at this time, she has a past history of stents. Patient is on antiplatelet drugs currently, I have stopped her nitroglycerin ointment to her foot-I do not think this adds anything to her care #4 dry gangrene of the second right toe-patient underwent amputation of the toe today #5 lactic acidosis-probably secondary to gangrene of her right second toe, I do not believe the patient is septic #6 ischemic cardiomyopathy-again patient will need further work-up as an outpatient, I started the patient on lisinopril and carvedilol yesterday, her blood pressure remained stable, I may be able to increase it on her discharge Total clinical time spent by myself addressing the patient's medical issues, reviewing all her data, and collaborating with the patient's care team: 35 minutes Charges/Coding Visit Charges Inpatient E&M: 30285 Subs Hosp L2
[2022-09-01 16:27] VITALS: BP 109/60; PULSE 97; RESP 18; TEMP 36.8; O2SAT 97
[2022-09-01 16:50] LABS: Bedside Glucose 226 mg/dL (74-106)
[2022-09-01] MEDS: Atorvastatin Calcium 80 MG Tablet PO (20:14)
[2022-09-01 20:46] VITALS: BP 106/79; PULSE 108; RESP 16; TEMP 37.2; O2SAT 96
[2022-09-01] MEDS: traZODone 50 MG Tablet PO (21:21)
[2022-09-01 21:45] LABS: Bedside Glucose 166 mg/dL (74-106)
[2022-09-02] MEDS: oxyCODONE 5 MG Tablet 10 MG PO ×3 (02:12→11:43)
[2022-09-02 02:32] VITALS: BP 103/58; PULSE 97; RESP 16; TEMP 36.5; O2SAT 92
[2022-09-02] MEDS: Ondansetron 4 MG/2 ML Vial IV (04:13)
[2022-09-02] MEDS: Gabapentin 300 MG Capsule PO ×2 (06:07→13:12)
[2022-09-02 06:25] LABS: Bedside Glucose 94 mg/dL (74-106)
[2022-09-02] MEDS: Aspirin 81 MG TAB.CHEW PO (07:38)
[2022-09-02] MEDS: Insulin Glargine-YFGN 100 UNIT/ML Pen 10 UNIT SC (07:39)
[2022-09-02] MEDS: Carvedilol 3.125 MG TABLET PO (07:41)
[2022-09-02] MEDS: Pantoprazole Sodium 40 MG Tablet PO (07:41)
[2022-09-02] MEDS: Venlafaxine XR 37.5 MG Capsule PO (07:42)
[2022-09-02] MEDS: Clopidogrel Bisulfate 75 MG Tablet PO (07:42)
[2022-09-02] MEDS: Lisinopril 10 MG Tablet PO (07:43)
[2022-09-02] MEDS: Dicyclomine 10 MG Capsule 20 MG PO (07:49)
[2022-09-02] MEDS: Glucerna Shake 120 ML LIQUID PO ×2 (07:49→11:43)
[2022-09-02] MEDS: Cilostazol 50 MG Tablet PO (07:50)
[2022-09-02 08:35] VITALS: BP 112/75; PULSE 100; RESP 18; TEMP 36.7; O2SAT 95
--- NOTE | 2022-09-02 09:41 | DCINST_ITS ---
Discharge Instructions Diet Discharge Diet: 1800 Calorie Control Diet Activity Discharge Activity: Return to Normal Activity Weight Bearing Status: - (heel weight bearing right foot) Dressing / Incision Call your doctor if your incision/area has: Continuous Slow Oozing, Increased Pain/ Swelling and Foul Smelling Discharge Call your doctor if you observe: Fever of 101 or Higher Change Dressing in: do not change dressing Remove Dressing in: do not remove dressing Follow Up Care Test Results: Test results from this visit will be discussed in further detail at your follow- up appointment, if applicable. Discharge Plan Admission Admit Date/Time: 08/30/22 15:51 Primary Reason for Your Visit: gangrene right second toe Attending Provider: Jesse Littlejohn [facility] Consult[facility] Providers: All [facility] Discharge Orders/Prescriptions Prescriptions: New carvedilol 3.125 mg Tablet 3.125 mg PO BID Qty: 60 0RF lisinopril 10 mg Tablet 10 mg PO DAILY Qty: 30 0RF nicotine 21 mg/24 hr Patch 24 Hour 21 mg transdermal DAILY Qty: 30 0RF oxycodone 5 mg Tablet 5 - 10 mg PO Q6H PRN (Reason: Pain (Scale Score 7-10)) 5 Days Qty: 30 0RF Rx Instructions: may take with 650 mg Tylenol four times a day amoxicillin-pot clavulanate 875-125 mg tablet 1 tab PO BID Qty: 15 0RF Rx Instructions: take with food, start with dinner tonite Continued desvenlafaxine succinate 25 mg tablet extended release 24 hr 1 ea PO DAILY Label Comments: TAKE 1 TABLET BY MOUTH DAILY FOR 5 DAYS, THEN INCREASE TO 2 (TWO) TABLETS DAILY trazodone 50 mg tablet 25 - 100 mg PO QHS PRN (Reason: Insomnia) glimepiride 4 mg tablet 1 tablet PO DAILY calcium carbonate 500 mg calcium (1,250 mg) tablet 1 tablet PO DAILY cilostazol 50 mg tablet 50 mg PO BID Qty: 60 2RF atorvastatin 80 mg tablet 80 mg PO DAILY Qty: 90 3RF clopidogrel [Plavix] 75 mg tablet 75 mg PO DAILY Qty: 30 2RF alendronate 70 mg tablet 70 mg PO WE Label Comments: take one tablet weekly HAS ONLY TAKEN 1X SINCE RX'D cholecalciferol (vitamin D3) 25 mcg (1,000 unit) tablet 1,000 unit PO DAILY Label Comments: TAKE 1 TABLET DAILY insulin glargine [Lantus Solostar U-100 Insulin] 100 unit/mL (3 mL) insulin pen 10 units subcut BID omeprazole 40 mg capsule,delayed release(DR/EC) 40 mg PO DAILY Qty: 30 0RF dicyclomine 20 mg tablet 20 mg PO BID Qty: 14 0RF aspirin 81 mg Capsule 81 mg PO DAILY gabapentin [Neurontin] 300 mg capsule 300 mg PO TID Qty: 30 0RF escitalopram oxalate 10 mg Tablet 10 mg PO DAILY Label Comments: HAS NOT REFILLED SINCE 04/25, BUT STATES SHE TAKES DAILY Discontinued Nitro-Bid 2 % ointment 0.5 inch transdermal BID Qty: 30 0RF Rx Instructions: administer 2 doses/day (approx. 6 hrs apart); remove for 10-12 hrs per 24 hours tramadol 50 mg tablet 50 mg PO TID PRN (Reason: pain) Qty: 30 0RF losartan 25 mg Tablet 25 mg PO DAILY Label Comments: HAS NOT REFILLED SINCE 04/25, BUT STATES SHE TAKES DAILY Referrals / Follow Up: Jesse Littlejohn DPM [Med Staff - Active Staff] - [facility] [Primary Care Provider] - Within 2 Weeks Disposition Disposition (needs filled in before D/C Order can be placed): Home Health Service
--- NOTE | 2022-09-02 10:18 | PN.HOSP_ITS ---
Reason for Visit Reason for Visit: Diagnoses Type 2 diabetes mellitus without complications (08/30/22) Unspecified atherosclerosis of [place] arteries of extremities, unspecified extremity (08/30/22) Peripheral vascular disease, unspecified (08/30/22) Gangrene, not elsewhere classified (08/30/22) Cellulitis of right lower limb (08/30/22) Pain in right foot (08/30/22) Subjective Subjective Patient was seen and examined today, she has no complaints of shortness of breath, fevers, or chills. I talked with podiatry, they are okay with the patient going home today, I wrote her discharge instructions including sending her prescriptions into her pharmacy. Objective Data Objective Data Vital Signs: Vital Signs Temp Pulse Resp BP Pulse Ox O2 Del Method O2 Flow Rate 98.1 F 100 18 112/75 95 Room Air 4 09/02/22 08:35 09/02/22 08:35 09/02/22 08:35 09/02/22 08:35 09/02/22 08:35 09/02/22 08:35 08/31/22 16:10 Oxygen Flow Rate (L/min) 4 Oxygen Delivery Method Room Air Weight: 70.8 kg Body Mass Index (BMI) 24.4 Intake & Output: Intake and Output for Last 24 Hours 08/31/22 09/01/22 09/02/22 23:59 23:59 23:59 Intake Total 560 / 560 2744.25 / 2744.25 824 / 824 Balance 560 / 560 2744.25 / 2744.25 824 / 824 Lab / Micro Data Result Diagrams: 08/31/22 06:15 08/31/22 06:15 Labs: Laboratory Results - last 24 hr 09/01/22 11:43: POC Glucose 232 H 09/01/22 16:24: POC Glucose 226 H 09/01/22 21:20: POC Glucose 166 H 09/02/22 06:06: POC Glucose 94 Micro: Microbiology 08/30/22 15:23 Blood Culture (Wb) - Right Forearm Blood Culture - Preliminary No growth in 48 hours. 08/30/22 14:29 Blood Culture (Wb) - Right Forearm Blood Culture - Preliminary No growth in 48 hours. 08/30/22 15:23 Urine, Clean Catch Urine Culture - Final Mixed Gram Positive Organisms Physical Exam Narrative alert, oriented x3, no apparent distress, average body habitus and healthy appearing Constitutional Narrative: Patient appears older than her stated age General Appearance: cooperative, well kempt and well developed Orientation / Consciousness: awake, oriented to person, oriented to place and oriented to time HEENT normocephalic, head/scalp atraumatic and moist oral mucous membranes Eyes PERRL, EOMs intact bilaterally and conjunctivae normal Neck supple, no JVD, thyroid normal and no carotid bruits General: trachea midline Resp normal respiratory effort, no retractions, no use of accessory muscles and clear to auscultation bilaterally Auscultation: Negative for rales, rhonchi or wheezes Cardio regular rate, regular rhythm, S1 normal heart sound, S2 normal heart sound, no murmurs, no rub and no gallops GI normal to inspection, nondistended, normoactive bowel sounds, soft to palpation, non-tender and non-distended Extremity Extremity Narrative: Gangrenous changes are noted to the right second toe with dry gangrene present along with some swelling and tenderness of the area Skin Skin Narrative: Examination of the patient's right foot reveals an area of dry gangrene to the right second toe along with some swelling of the area and tenderness to p alpation. Neuro oriented x3, CN's II-XII intact bilaterally, moves all extremities, no focal motor deficits and no sensory deficits noted Sensorium / Orientation: awake and alert Speech: speech normal Psych affect normal Assessment & Plan Assessment/Plan (1) Cellulitis of right foot: (2) Diabetes mellitus, type 2: (3) Atherosclerosis of lower extremity: PLAN: Plan 1. Type 2 diabetes-under poor control-patient will remain on her home insulin therapy patient appears to be medical stable at this time #2 coronary artery disease-extent unknown at this time, she will need further work-up as an outpatient, patient is on aspirin and Plavix #3 peripheral vascular disease-according to podiatry, patient does not need any intervention in her right leg at this time, she has a past history of stents. Patient is on antiplatelet drugs currently, I have stopped her nitroglycerin ointment to her foot-I do not think this adds anything to her care #4 dry gangrene of the second right toe-patient underwent amputation of the toe today #5 lactic acidosis-probably secondary to gangrene of her right second toe, I do not believe the patient is septic #6 ischemic cardiomyopathy-again patient will need further work-up as an outpatient, I started the patient on lisinopril and carvedilol yesterday, her blood pressure remained stable, I may be able to increase it on her discharge Total clinical time spent by myself addressing the patient's medical issues, reviewing all her data, and collaborating with the patient's care team: 35 minutes Charges/Coding Visit Charges Inpatient E&M: 31982 Subs Hosp L2
--- NOTE | 2022-09-02 10:18 | PCM.PROGNOTE ---
Subjective Subjective Patient denies constitutional symptoms. pain improved today. No other complaints. Objective Data Objective Data Vital Signs: Vital Signs Temp Pulse Resp BP Pulse Ox O2 Del Method O2 Flow Rate 98.1 F 100 18 112/75 95 Room Air 4 09/02/22 08:35 09/02/22 08:35 09/02/22 08:35 09/02/22 08:35 09/02/22 08:35 09/02/22 08:35 08/31/22 16:10 Oxygen Flow Rate (L/min) 4 Oxygen Delivery Method Room Air Weight: 70.8 kg Body Mass Index (BMI) 24.4 Intake & Output: Intake and Output for Last 24 Hours 08/31/22 09/01/22 09/02/22 23:59 23:59 23:59 Intake Total 560 / 560 2744.25 / 2744.25 824 / 824 Balance 560 / 560 2744.25 / 2744.25 824 / 824 Lab / Micro Data Result Diagrams: 08/31/22 06:15 08/31/22 06:15 Labs: Laboratory Results - last 24 hr 09/01/22 11:43: POC Glucose 232 H 09/01/22 16:24: POC Glucose 226 H 09/01/22 21:20: POC Glucose 166 H 09/02/22 06:06: POC Glucose 94 Micro: Microbiology 08/30/22 15:23 Blood Culture (Wb) - Right Forearm Blood Culture - Preliminary No growth in 48 hours. 08/30/22 14:29 Blood Culture (Wb) - Right Forearm Blood Culture - Preliminary No growth in 48 hours. 08/30/22 15:23 Urine, Clean Catch Urine Culture - Final Mixed Gram Positive Organisms Physical Exam Narrative Neurovascular status unchanged. No signs of DVT. Dressing to right foot left intact.. Const alert and oriented x3 Constitutional Narrative: Patient has atrophic skin changes with dry stable eschar limited to distal tuft of right 2nd toe. some perinecrosis edema/erythema. No other acute signs of infection. Perforating peroneal pulse triphasic, dorsalis pedis pulse biphasic and posterior tibial pulse biphasic. No gross deformity Light touch/protective sensation diminished to bilateral feet. Assessment & Plan Assessment/Plan (1) Peripheral vascular disease, unspecified: PLAN: Exam performed. Dressing left intact. Patient heel weightbearing to right foot in surgical shoe. Patient will keep dressing clean dry and intact until follow-up in 1 week. Patient should attempt smoking cessation. Patient stable for discharge today. (2) Dry gangrene: (3) Foot pain, right:
--- NOTE | 2022-09-02 11:15 | DS.PCM_ITS ---
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 Routine Comment: Reason For Visit: GANGRENE RIGH 2ND TOE Diagnosis Discharge Diagnosis (1) Cellulitis of right foot: Status: Acute Code(s): L03.115 - Cellulitis of right lower limb (2) Diabetes mellitus, type 2: Status: Chronic Code(s): E11.9 - Type 2 diabetes mellitus without complications (3) Atherosclerosis of lower extremity: Status: Acute Code(s): I70.209 - Unspecified atherosclerosis of [place] arteries of extremities, unspecified extremity (4) Dry gangrene: Status: Acute Code(s): I96 - Gangrene, not elsewhere classified (5) Foot pain, right: Status: Acute Code(s): M79.671 - Pain in right foot (6) Peripheral vascular disease, unspecified: Status: Acute Code(s): I73.9 - Peripheral vascular disease, unspecified Plan: Exam performed. Dressing left intact. Patient heel weightbearing to right foot in surgical shoe. Patient will keep dressing clean dry and intact until follow-up in 1 week. Patient should attempt smoking cessation. Patient stable for discharge today. Medications at Discharge Home Medications alendronate 70 mg tablet 70 mg PO [employer] 07/25/22 cholecalciferol (vitamin D3) 25 mcg (1,000 unit) tablet 1,000 unit PO DAILY 07/25/22 insulin glargine 100 unit/mL (3 mL) subcutaneous pen (Lantus Solostar U-100 Insulin) 10 units subcut BID 07/25/22 omeprazole 40 mg capsule,delayed release 40 mg PO DAILY #30 caps 07/25/22 dicyclomine 20 mg tablet 20 mg PO BID #14 tabs 08/03/22 atorvastatin 80 mg tablet 80 mg PO DAILY #90 tabs 08/09/22 calcium carbonate 500 mg calcium (1,250 mg) tablet 1 tablet PO DAILY 08/09/22 cilostazol 50 mg tablet 50 mg PO BID #60 tabs 08/09/22 clopidogrel 75 mg tablet (Plavix) 75 mg PO DAILY #30 tabs 08/09/22 desvenlafaxine succinate 25 mg tablet,extended release 24 hr 1 ea PO DAILY 08/09/22 glimepiride 4 mg tablet 1 tablet PO DAILY 08/09/22 trazodone 50 mg tablet 25 - 100 mg PO QHS PRN Insomnia 08/09/22 aspirin 81 mg capsule 81 mg PO DAILY 08/10/22 gabapentin 300 mg capsule (Neurontin) 300 mg PO TID #30 caps 08/14/22 escitalopram oxalate 10 mg tablet 10 mg PO DAILY DEPRESSION 08/30/22 amoxicillin 875 mg-potassium clavulanate 125 mg tablet 1 tab PO BID #15 tabs 09/02/22 carvedilol 3.125 mg tablet 3.125 mg PO BID #60 tabs 09/02/22 lisinopril 10 mg tablet 10 mg PO DAILY #30 tabs 09/02/22 nicotine 21 mg/24 hr daily transdermal patch 21 mg transdermal DAILY #30 ea 09/02/22 oxycodone 5 mg tablet 5 - 10 mg PO Q6H PRN Pain (Scale Score 7-10) 5 days #30 tabs 09/02/22 Hospital Course Summary of Care Provided Hospital Course: Patient admitted for some possible referred perfusion injury versus cellulitis right foot in setting of dry grain cream limited to the distal tuft of the second toe status post revascularization per Dr. Ng in early August. Per Dr. Ng patient stable for right second digit amputation. This was performed during this inpatient stay. Patient's pain postoperatively did improve. No concern for residual infection but patient will be discharged on p.o. antibiotics for prophylaxis. She will follow-up in my clinic in 1 week at which time we will change her dressing and assess the incision for healing. Physical Exam Narrative Patient AOx3. Neurovascular status unchanged. Right foot dressing was left intact. No pain with calf squeeze or palpation of popliteal fossa ruling out concern for DVT. Const General Appearance: cooperative, comfortable and well hydrated HEENT normocephalic Eyes EOMs intact bilaterally Neck full ROM Lymph Lymphatic: no lymphadenopathy noted and no lymphedema noted Weight / BMI Weight Weight: 70.8 kg Body Mass Index (BMI) 24.4 ABG / Lab / Microbiology Data Result Diagrams: 08/31/22 06:15 08/31/22 06:15 Laboratory: Laboratory Results - last 24 hr 09/01/22 11:43: POC Glucose 232 H 09/01/22 16:24: POC Glucose 226 H 09/01/22 21:20: POC Glucose 166 H 09/02/22 06:06: POC Glucose 94 Microbiology: Microbiology 08/30/22 15:23 Blood Culture (Wb) - Right Forearm Blood Culture - Pre liminary No growth in 48 hours. 08/30/22 14:29 Blood Culture (Wb) - Right Forearm Blood Culture - Preliminary No growth in 48 hours. 08/30/22 15:23 Urine, Clean Catch Urine Culture - Final Mixed Gram Positive Organisms D/C Instructions Discharge Diet: 1800 Calorie Control Diet Weight Bearing Status: - (heel weight bearing right foot) Call your doctor if your incision/area has: Continuous Slow Oozing, Increased Pain/ Swelling and Foul Smelling Discharge Call your doctor if you observe: Fever of 101 or Higher Meaningful Use Info Meaningful Use Diagnoses (Choose all that apply): None applicable Discharge Plan Admission Admit Date/Time: 08/30/22 15:51 Primary Reason for Your Visit: gangrene right second toe Attending Provider: Jesse Littlejohn [facility] Providers: All [facility] Instructions Additional Instructions / Restrictions: Keep dressing clean dry and intact follow-up in 1 week. Take prescriptions as directed. Maintain heel weightbearing status in surgical shoe on right foot. Contact our clinic or present to the emergency room if there is any strikethrough to the dressing or any signs or symptoms of infection or DVT. Discharge Orders/Prescriptions Prescriptions: New carvedilol 3.125 mg Tablet 3.125 mg PO BID Qty: 60 0RF lisinopril 10 mg Tablet 10 mg PO DAILY Qty: 30 0RF nicotine 21 mg/24 hr Patch 24 Hour 21 mg transdermal DAILY Qty: 30 0RF oxycodone 5 mg Tablet 5 - 10 mg PO Q6H PRN (Reason: Pain (Scale Score 7-10)) 5 Days Qty: 30 0RF Rx Instructions: may take with 650 mg Tylenol four times a day amoxicillin-pot clavulanate 875-125 mg tablet 1 tab PO BID Qty: 15 0RF Rx Instructions: take with food, start with dinner tonite Continued desvenlafaxine succinate 25 mg tablet extended release 24 hr 1 ea PO DAILY Label Comments: TAKE 1 TABLET BY MOUTH DAILY FOR 5 DAYS, THEN INCREASE TO 2 (TWO) TABLETS DAILY trazodone 50 mg tablet 25 - 100 mg PO QHS PRN (Reason: Insomnia) glimepiride 4 mg tablet 1 tablet PO DAILY calcium carbonate 500 mg calcium (1,250 mg) tablet 1 tablet PO DAILY cilostazol 50 mg tablet 50 mg PO BID Qty: 60 2RF atorvastatin 80 mg tablet 80 mg PO DAILY Qty: 90 3RF clopidogrel [Plavix] 75 mg tablet 75 mg PO DAILY Qty: 30 2RF alendronate 70 mg tablet 70 mg PO WE Label Comments: take one tablet weekly HAS ONLY TAKEN 1X SINCE RX'D cholecalciferol (vitamin D3) 25 mcg (1,000 unit) tablet 1,000 unit PO DAILY Label Comments: TAKE 1 TABLET DAILY insulin glargine [Lantus Solostar U-100 Insulin] 100 unit/mL (3 mL) insulin pen 10 units subcut BID omeprazole 40 mg capsule,delayed release(DR/EC) 40 mg PO DAILY Qty: 30 0RF dicyclomine 20 mg tablet 20 mg PO BID Qty: 14 0RF aspirin 81 mg Capsule 81 mg PO DAILY gabapentin [Neurontin] 300 mg capsule 300 mg PO TID Qty: 30 0RF escitalopram oxalate 10 mg Tablet 10 mg PO DAILY Label Comments: HAS NOT REFILLED SINCE 04/25, BUT STATES SHE TAKES DAILY Discontinued Nitro-Bid 2 % ointment 0.5 inch transdermal BID Qty: 30 0RF Rx Instructions: administer 2 doses/day (approx. 6 hrs apart); remove for 10-12 hrs per 24 hours tramadol 50 mg tablet 50 mg PO TID PRN (Reason: pain) Qty: 30 0RF losartan 25 mg Tablet 25 mg PO DAILY Label Comments: HAS NOT REFILLED SINCE 04/25, BUT STATES SHE TAKES DAILY Referrals / Follow Up: Jesse Littlejohn DPM [Med Staff - Active Staff] - [facility] [Primary Care Provider] - Within 2 Weeks Disposition Disposition (needs filled in before D/C Order can be placed): Home Health Service
[2022-09-02] MEDS: Insulin Lispro 100 UNIT/ML INSULN.PEN SC (11:43)
[2022-09-02 12:05] LABS: Bedside Glucose 211 mg/dL (74-106)
[2022-09-02 13:40] VITALS: BP 108/66; PULSE 98; RESP 18; TEMP 36.6; O2SAT 96
== END 2022-09-02 14:23 | disposition home health service (06) | DRG 314 ==
LOC: ED 16:15 → MS3 16:37
PROVIDERS: Admitting Provider Podiatrist; Emergency Provider Emergency Medicine; Visit Provider Podiatrist
PROC: 0Y6R0Z0 Detachment at Right 2nd Toe, Complete, Open Approach (ICD-10-PCS; principal; 2022-08-31 14:40)
DX: L03.115 Cellulitis of right lower limb (principal); E11.52 Type 2 diabetes mellitus with diabetic peripheral angiopathy with gangrene; I96 Gangrene, not elsewhere classified; E87.20 Acidosis, unspecified; I11.0 Hypertensive heart disease with heart failure; E11.65 Type 2 diabetes mellitus with hyperglycemia; E11.51 Type 2 diabetes mellitus with diabetic peripheral angiopathy without gangrene; Z79.4 Long term (current) use of insulin; I70.209 Unspecified atherosclerosis of native arteries of extremities, unspecified extremity; K21.9 Gastro-esophageal reflux disease without esophagitis; E78.5 Hyperlipidemia, unspecified; I25.10 Atherosclerotic heart disease of native coronary artery without angina pectoris; M79.671 Pain in right foot; I25.5 Ischemic cardiomyopathy; Z79.83 Long term (current) use of bisphosphonates; Z79.891 Long term (current) use of opiate analgesic; Z79.02 Long term (current) use of antithrombotics/antiplatelets; Z87.891 Personal history of nicotine dependence
CPT/HCPCS: 36415; 71046; 73630; 80048; 80053; 82962; 83036; 83605; 85025; 85610; 85730; 87040; 87086; 87088; 88304; 88305; 88311; 93005; 93306; 99285; 99406; J7030; J7050; J7120; Q9957; 90686; A4216; C8929; J0295; J2405

== ENCOUNTER 2022-09-05 12:28 | Emergency (ER) | payer MEDICAID, SELFPAY ==
[2022-09-05 12:29] VITALS: BP 139/90; PULSE 111; RESP 18; TEMP 36.8; O2SAT 98; BMI 26.3
--- NOTE | 2022-09-05 12:37 | VDLE_ITS ---
Reason For Study: LEG PAIN RIGHT LEFT GSV is normal. CFV is compressible, spontaneous, phasic, CFV is compressible, spontaneous, phasic, competent, and demonstrates normal competent and demonstrates normal augmentation. augmentation. FV is compressible, spontaneous, phasic, competent and demonstrates normal augmentation. POP V is compressible, spontaneous, phasic, competent and demonstrates normal augmentation. T/P Trunk is compressible. PTV is compressible. RT PerV is compressible. Procedure This is a venous duplex using B-mode, color flow and spectral Doppler. Exam performed portable in ED. The exam was diagnostic. A preliminary report was called and/or faxed to Dr. Hanley. VL/Venous Duplex US, Unilateral Interpretation Summary Deep veins of the right lower extremity are patent and compressible segmentally . There is no evidence of right lower extremity deep vein thrombosis. The right [place] vein appears patent and compressible segmentally. Ordering Physician: Yvette Hanley Referring Physician: Ama [facility]ff Performed By: Héctor Ayoub RVT
--- NOTE | 2022-09-05 12:37 | RAD_ITS ---
STUDY: X-RAY - RIGHT FOOT CLINICAL: Female, 52 years old. Pain, swelling TECHNIQUE: 3 view(s) of the foot. COMPARISON: None. FINDINGS: There is a plantar calcaneal spur. Normal visualized subtalar, talonavicular, calcaneocuboid, tarsal and tarsometatarsal articulations. Healed transverse fracture in the distal portion of the fifth metacarpal. Normal metatarsophalangeal joint of the great toe. Normal tibial and fibular sesamoid bones. Normal interphalangeal joint of the great toe. Normal phalanges of the great toe. Normal second through fifth metatarsophalangeal joints. The patient is status post amputation of the second toe. Soft tissue swelling. Vascular calcification. RAD/Foot min 3 Views IMPRESSION: Status post amputation of the second toe. No acute abnormality is seen. Electronically Signed: Ryan Tejeda MD at 13:19 EDT ,
--- NOTE | 2022-09-05 12:39 | ED.VIS.LOWEX ---
HPI History of Present Illness Chief Complaint: Lower Extremity Injury Detail of Chief Complaint: Right foot pain Informant: patient Narrative Narrative: Patient presents to the emergency department complaint of right foot pain. Patient states that she had her second toe amputated [address] Littlejohn because it was necrotic. Patient has history of peripheral vascular disease with a stent in the right leg by Dr. Ng. Patient states that when she got home she fell and she is not sure if she injured her foot. The pains been getting worse over the last 2 days and the oxycodone was not helping her pain. She called her visiting nurse who advised her to come to the ER to get evaluated. She did not contact her surgeon. She denies any fevers or chills or sweats. [facility] Medical History CAD (coronary artery disease), [place] coronary artery CHF (congestive heart failure) GERD (gastroesophageal reflux disease) HTN (hypertension) Hx of fracture of humerus Hyperlipidemia Toe amputee Home Medications alendronate 70 mg tablet 70 mg PO [facility] 07/25/22 [History Last Taken Unknown] cholecalciferol (vitamin D3) 25 mcg (1,000 unit) tablet 1,000 unit PO DAILY 07/25/22 [History Last Taken Unknown] insulin glargine 100 unit/mL (3 mL) subcutaneous pen (Lantus Solostar U-100 Insulin) 10 units subcut BID 07/25/22 [History Last Taken Unknown] omeprazole 40 mg capsule,delayed release 40 mg PO DAILY #30 caps 07/25/22 [Rx Last Taken Unknown] dicyclomine 20 mg tablet 20 mg PO BID #14 tabs 08/03/22 [Rx Last Taken Unknown] atorvastatin 80 mg tablet 80 mg PO DAILY #90 tabs 08/09/22 [Rx Last Taken Unknown] calcium carbonate 500 mg calcium (1,250 mg) tablet 1 tablet PO DAILY 08/09/22 [History Last Taken Unknown] cilostazol 50 mg tablet 50 mg PO BID #60 tabs 08/09/22 [Rx Last Taken Unknown] clopidogrel 75 mg tablet (Plavix) 75 mg PO DAILY #30 tabs 08/09/22 [Rx Last Taken Unknown] desvenlafaxine succinate 25 mg tablet,extended release 24 hr 1 ea PO DAILY 08/09/22 [History Last Taken Unknown] glimepiride 4 mg tablet 1 tablet PO DAILY 08/09/22 [History Last Taken Unknown] trazodone 50 mg tablet 25 - 100 mg PO QHS PRN Insomnia 08/09/22 [History Last Taken Unknown] aspirin 81 mg capsule 81 mg PO DAILY 08/10/22 [History Last Taken 08/10/22] gabapentin 300 mg capsule (Neurontin) 300 mg PO TID #30 caps 08/14/22 [Rx Last Taken Unknown] escitalopram oxalate 10 mg tablet 10 mg PO DAILY DEPRESSION 08/30/22 [History Last Taken Unknown] amoxicillin 875 mg-potassium clavulanate 125 mg tablet 1 tab PO BID #15 tabs 09/02/22 [Rx Last Taken Unknown] carvedilol 3.125 mg tablet 3.125 mg PO BID #60 tabs 09/02/22 [Rx Last Taken Unknown] lisinopril 10 mg tablet 10 mg PO DAILY #30 tabs 09/02/22 [Rx Last Taken Unknown] nicotine 21 mg/24 hr daily transdermal patch 21 mg transdermal DAILY #30 ea 09/02/22 [Rx Last Taken Unknown] oxycodone 5 mg tablet 5 - 10 mg PO Q6H PRN Pain (Scale Score 7-10) 5 days #30 tabs 09/02/22 [Rx Last Taken Unknown] oxycodone-acetaminophen 5 mg-325 mg tablet 1 tab PO Q6H PRN PRN Pain 3 days #12 TABLETS 09/05/22 [Rx Last Taken Unknown] oxycodone-acetaminophen 5 mg-325 mg tablet 1 tab PO Q6H PRN PRN Pain 3 days #12 TABLETS 09/05/22 [Rx Last Taken Unknown] Allergy/AdvReac Type Severity Reaction Status Date / Time latex Allergy Hives Verified 09/05/22 12:29 Family History Other Diabetes Heart disease Surgical History History of cholecystectomy Social History household members: spouse and children housing: house Smoking Status: Current every day smoker tobacco type: cigarettes alcohol intake: never what type of physical activity do you participate in: none do you feel safe at home: Yes ROS ROS ED Review of Systems ROS Unobtainable: other Constitutional Constitutional ED: Reports lethargy; Denies chills, fever(s), sweats or weight loss Eyes Eyes: Denies blurry vision, change in vision or diplopia ENT ENT ED: Denies rhinorrhea or sore throat Cardiovascular Cardiovascular: Denies chest pain, orthopnea or racing heartbeat Respiratory/Chest Respiratory/Chest: Denies cough, dyspnea, dyspnea on exertion, orthopnea or sputum Gastrointestinal Gastrointestinal: Denies abdominal pain, diarrhea, nausea or vomiting Genitourinary Genitourinary ED: Denies dysuria, hematuria or urinary frequency Musculoskeletal Musculoskeletal: Reports other Details: Right foot pain ; Denies arthralgias, back pain, myalgias or neck pain Integumentary Denies abscess, Abrasions or rash Neurologic Neurologic: Denies headache(s) or weakness Psychiatric Psychiatric: Denies anxiety, depression or suicidal thoughts Endocrine Endocrinology: Denies polydipsia, polyphagia or polyuria Hematologic/Lymphatic Hematologic/Lymphatic: Denies easy bleeding, easy bruising or lymphadenopathy Allergic/Immunologic Allergic/Immunologic ED: Denies mouth swelling, tongue swelling or urticaria EXAM Physical Exam Const Vital Signs: 09/05/22 12:29 Temperature 98.3 F Temperature Source Oral Pulse Rate 111 H Respiratory Rate 18 Blood Pressure 139/90 H Blood Pressure Mean 106 Pulse Ox 98 Oxygen Delivery Method Room Air Positive well nourished and well developed General Appearance ED: well developed and NAD HEENT Reports TM's clear and moist mucous membranes normocephalic and atraumatic; Negative for trauma or tenderness Tympanic Membrane ED: Yes TM's clear Eyes PERRL and EOMs intact bilaterally General Eye ED: Negative for pale conjunctiva or scleral icterus Neck no lymphadenopathy, supple and no JVD General: Negative for tenderness Chest Wall inspection of chest normal and palpation of chest normal Chest: Negative for tenderness Resp normal respiratory effort and clear to auscultation bilaterally Effort and Inspection: Negative for respiratory distress or pain with movement Auscultation: Negative for rhonchi, wheezes or diminished lung sounds Cardio regular rate, regular rhythm, S1 normal heart sound, S2 normal heart sound and no murmurs Peripheral Pulses: pulses 2+ throughout GI normal to inspection, nondistended, normoactive bowel sounds, soft to palpation, non-tender, non-distended and no masses Back/Spine no CVA tenderness and no thoracic nor lumbar tenderness Extremity Extremity Narrative: Right lower extremity-evaluation of the right foot does reveal that she had a dressing on it so the Oswald wrap and web roll was removed. She does have noted recent amputation of the second toe. Wound appears to be healing well. There is no bleeding. There are some mild faint diffuse erythema about the foot. Most of her tenderness is over the lateral aspect of the foot. There is no obvious deformity. There is no ecchymosis or bruising. Foot is warm to the touch. Slightly palpable dorsal pedal and posterior tibial pulses General Extremety ED: Negative for edema General Extremity: Negative for edema Neuro oriented x3, CN's II-XII intact bilaterally, no sensory deficits noted and gait normal Sensorium / Orientation: awake, alert, oriented to person, oriented to place and oriented to time Motor Exam: strength 5/5 throughout and strength abnormal Psych mental status grossly normal Skin no rashes or lesions noted and no wounds MDM MDM MDM Narrative Medical decision making narrative: Patient recently postop with resection of her second toe on her right foot. I did obtain an x-ray of the foot and there was no evidence of fracture or acute disease process. Patient also had a venous Doppler of the right lower extremity to rule out DVT and this was negative. CBC with differential was unremarkable and chemistries unremarkable. I discussed case with patient's environmental services worker Dr. Littlejohn who will attempt to get patient seen sooner than her scheduled appointment of September 13. I will write her a prescription for a few oxycodone and give her a larger postop shoe because she states that when she was given does not fit her foot properly. Patient will be discharged to home stable condition. Patient to follow-up with her environmental services worker. Lab Data Labs: Laboratory Results - last 24 hr 09/05/22 09/05/22 12:50 12:50 WBC 8.5 RBC 5.21 Hgb 14.3 Hct 43.9 MCV 84.3 MCH 27.4 MCHC 32.6 RDW Std Deviation 38.6 RDW Coeff of [place] 12.6 Plt Count 234 MPV 9.6 Immature Gran % (Auto) 0.400 Neut % (Auto) 80.1 H Lymph % (Auto) 12.2 L [place] % (Auto) 5.7 Eos % (Auto) 0.8 Baso % (Auto) 0.8 Absolute Neuts (auto) 6.8 Absolute Lymphs (auto) 1.04 Nucleated RBC % 0 Sodium 134 L Potassium 3.7 Chloride 100 Carbon Dioxide 30.0 Anion Gap 4 L BUN 4 L Creatinine 0.70 Estim Creat Clear Calc 92.46 Est GFR (MDRD) Af Amer 114 Est GFR (MDRD) Non-Af 94 BUN/Creatinine Ratio 5.7 L Glucose 330 H Calcium 9.1 Radiography Diagnostic Testing: Clinical Impression(s) from Imaging Studies Foot X-Ray 09/05/22 12:37 IMPRESSION: Status post amputation of the second toe. No acute abnormality is seen. Electronically Signed: Ryan Tejeda MD at 13:19 EDT , Three-view x-rays of the right foot obtained showed on my interpretation no evidence of fractures. She was noted to be postresection of second toe. Radiology felt there was no acute abnormality also. Discharge Plan Triage Chief Complaint: Lower Extremity Injury ED Provider: Yvette Hanley Dx/Rx/DC Orders Clinical Impression: Acute foot pain, Post-op pain, Foot sprain Instructions: ED Foot Sprain, ED Post Op Wound Check, Pain Prescriptions: New oxycodone-acetaminophen [oxycodone-acetaminophen] 5-325 mg tablet 1 tab PO Q6H PRN PRN (Reason: Pain) 3 Days Qty: 12 0RF oxycodone-acetaminophen [oxycodone-acetaminophen] 5-325 mg tablet 1 tab PO Q6H PRN PRN (Reason: Pain) 3 Days Qty: 12 0RF No Action desvenlafaxine succinate 25 mg tablet extended release 24 hr 1 ea PO DAILY Label Comments: TAKE 1 TABLET BY MOUTH DAILY FOR 5 DAYS, THEN INCREASE TO 2 (TWO) TABLETS DAILY trazodone 50 mg tablet 25 - 100 mg PO QHS PRN (Reason: Insomnia) glimepiride 4 mg tablet 1 tablet PO DAILY calcium carbonate 500 mg calcium (1,250 mg) tablet 1 tablet PO DAILY cilostazol 50 mg tablet 50 mg PO BID Qty: 60 2RF atorvastatin 80 mg tablet 80 mg PO DAILY Qty: 90 3RF clopidogrel [Plavix] 75 mg tablet 75 mg PO DAILY Qty: 30 2RF alendronate 70 mg tablet 70 mg PO WE Label Comments: take one tablet weekly HAS ONLY TAKEN 1X SINCE RX'D cholecalciferol (vitamin D3) 25 mcg (1,000 unit) tablet 1,000 unit PO DAILY Label Comments: TAKE 1 TABLET DAILY insulin glargine [Lantus Solostar U-100 Insulin] 100 unit/mL (3 mL) insulin pen 10 units subcut BID omeprazole 40 mg capsule,delayed release(DR/EC) 40 mg PO DAILY Qty: 30 0RF dicyclomine 20 mg tablet 20 mg PO BID Qty: 14 0RF aspirin 81 mg Capsule 81 mg PO DAILY gabapentin [Neurontin] 300 mg capsule 300 mg PO TID Qty: 30 0RF escitalopram oxalate 10 mg Tablet 10 mg PO DAILY Label Comments: HAS NOT REFILLED SINCE 04/25, BUT STATES SHE TAKES DAILY carvedilol 3.125 mg Tablet 3.125 mg PO BID Qty: 60 0RF lisinopril 10 mg Tablet 10 mg PO DAILY Qty: 30 0RF nicotine 21 mg/24 hr Patch 24 Hour 21 mg transdermal DAILY Qty: 30 0RF oxycodone 5 mg Tablet 5 - 10 mg PO Q6H PRN (Reason: Pain (Scale Score 7-10)) 5 Days Qty: 30 0RF Rx Instructions: may take with 650 mg Tylenol four times a day amoxicillin-pot clavulanate 875-125 mg tablet 1 tab PO BID Qty: 15 0RF Rx Instructions: take with food, start with dinner tonite Primary Care Provider: [facility] Finney Referrals: Jesse Littlejohn DPM [Med Staff - Active Staff] [facility] - Disposition Disposition: Home, Self Care
[2022-09-05] MEDS: Ondansetron 4 MG/2 ML Vial IV (12:59)
[2022-09-05] MEDS: Morphine 4 MG/ML Syringe IV ×2 (12:59→14:47)
[2022-09-05 13:05] LABS: Absolute Lymphocyte Count 1.04 X10^3/uL (0.83-4.51); Absolute Neutrophil Count 6.8 X10^3/uL (2.0-7.7); Basophil# 0.07 X10^3/uL; Basophil% 0.8 % (0-1); Eosinophil# 0.07 X10^3/uL; Eosinophils% 0.8 % (0-5); Hematocrit 43.9 % (37-47); Hemoglobin 14.3 g/dL (12.0-15.0); Lymphocyte # 1.04 X10^3/ul (0.83-4.51); Lymphocyte % 12.2 % (19-41); Mean Corp Hgb Conc 32.6 g/dL (32-36); Mean Corpuscular Hgb 27.4 pg (27.0-32.0); Mean Corpuscular Volume 84.3 fL (81-99); Mean Platelet Vol. 9.6 fl (6.2-12.0); Monocyte# 0.48 X10^3/uL; Monocyte% 5.7 % (0-10); NRBC Flagged by Analyzer 0 % (0-5); Neutrophil % 80.1 % (47-70); Platelet Count 234 K/mm3 (150-450); RBC Distribution Width CV 12.6 % (11.6-14.6); RBC Distribution Width SD 38.6 fl (35.1-43.9); Red Blood Count 5.21 M/mm3 (4.2-5.4); White Blood Count 8.5 K/mm3 (4.4-11.0)
[2022-09-05 13:17] LABS: Anion Gap 4 (5-15); BUN 4 mg/dL (7-18); BUN/Creat Ratio 5.7 RATIO (10-20); Calcium,Total 9.1 mg/dL (8.5-10.1); Chloride 100 mmol/L (98-107); EST Glomerular Filtration Rate 94 mL/min (>60); Est Glom Filt Rate - Afr Amer 114 mL/min (>60); Estimated Creatinine Clearance 92.46 ml/min; Glucose 330 mg/dL (74-106); Potassium 3.7 mmol/L (3.5-5.1); Sodium Level 134 mmol/L (136-145)
[2022-09-05 15:02] VITALS: RESP 18
== END 2022-09-05 15:20 | disposition home or self-care (01) ==
PROVIDERS: Emergency Provider Emergency Medicine; Visit Provider Emergency Medicine
DX: S93.601A Unspecified sprain of right foot, initial encounter (principal); Z89.429 Acquired absence of other toe(s), unspecified side; I11.0 Hypertensive heart disease with heart failure; I50.9 Heart failure, unspecified; W19.XXXA Unspecified fall, initial encounter; G89.18 Other acute postprocedural pain; I25.10 Atherosclerotic heart disease of native coronary artery without angina pectoris; E78.5 Hyperlipidemia, unspecified; M79.671 Pain in right foot
CPT/HCPCS: 73630; 80048; 85025; 93971; 96374; 96375; 96376; 99285; J7030; A4216; J2405

== ENCOUNTER → 2022-09-08 | Outpatient (CLI) | payer MEDICAID, SELFPAY ==
--- NOTE | 2022-09-08 14:09 | ADUL_ITS ---
Reason For Study: s/p Rt SFA angioplasty Right Velocities Ext. Iliac Artery, dist = 104 cm./sec. Common Femoral Artery, mid = 119 cm./sec. Rt prox SFA pre stent: 104 cm/s Rt prox SFA prox stent: 119 cm/s Rt prox SFA mid stent: 93 cm/s Rt prox SFA distal stent: 61 cm/s Rt prox SFA distal to stent: 69 cm/s Rt mid SFA pre stent: 88 cm/s Rt mid SFA prox stent: 77 cm/s Rt mid SFA mid stent: 62 cm/s Rt mid SFA distal stent: 67 cm/s Rt mid SFA distal to stent: 76 cm/s. Supf Femoral Artery, prox = 93 cm./sec. Supf Femoral Artery, mid = 88 cm./sec. Supf Femoral Artery, dist. = 58 cm./sec. Profunda Femoral Artery = 70 cm./sec. Popliteal Artery, mid = 79 cm./sec. Post. Tibial Artery, prox = 46 cm./sec. Post. Tibial Artery, mid = 39 cm./sec. Post. Tibial Artery, dist = 21 cm./sec. Peroneal Artery, prox = 19 cm./sec. Peroneal Artery, mid = 22 cm./sec. Peroneal Artery,dist = 27 cm./sec. Ant. Tibial Artery, prox = 85 cm./sec. Ant. Tibial Artery, mid = 79 cm./sec. Ant. Tibial Artery, dist = 59 cm./sec. Retrograde flow noted Rt PeroA mid and distal. VL/US Art Duplex Unilat Lower Ext Interpretation Summary Patent right lower extremity arteries/stents with normal waveforms and velociti es. No evidence of stenosis Ordering Physician: Veda Mathis Referring Physician: [facility] Performed By: Jyoti Pandey, EDMOND, RVT
--- NOTE | 2022-09-08 14:09 | ART_ITS ---
Reason For Study: s/p Rt SFA Angioplasty Procedure A bilateral lower extremity continuous wave Doppler with analog waveform analysis and ankle brachial indexes. Left Segmental Pressures Left brachial= 136mmHg. Left posterior tibial artery = 160mmHg. Left dorsalis pedis artery = 154mmHg. Right Segmental Pressures Right brachial= 135mmHg. Right posterior tibial artery = 163mmHg. Right dorsalis pedis artery = 163mmHg. Indices The right ankle brachial index by the posterior tibial artery is 1.20. The right ankle brachial index by the dorsalis pedis is 1.20. The left ankle brachial index by the posterior tibial artery is 1.18. The left ankle brachial index by the dorsalis pedis is 1.13. VL/Ankle Brachial Index Interpretation Summary Right VIRY 1.2, normal. Doppler/PVR waveforms of the right leg normal at rest. Left VIRY 1.18, normal. Doppler/PVR waveforms of the left leg normal at rest Ordering Physician: Veda Mathis Referring Physician: [facility] Performed By: Jyoti Pandey RDCS/RVT
== END | disposition home or self-care (01) ==
LOC: CVS 14:07
PROVIDERS: Referring Provider Physician Assistant; Visit Provider Physician Assistant
DX: I75.021 Atheroembolism of right lower extremity (principal); I70.209 Unspecified atherosclerosis of native arteries of extremities, unspecified extremity
CPT/HCPCS: 93922; 93926

== ENCOUNTER 2022-09-09 18:09 | Emergency (ER) | payer MEDICAID, SELFPAY ==
[2022-09-09 18:22] VITALS: BP 132/85; PULSE 111; RESP 16; TEMP 36.3; O2SAT 99; BMI 24.4
[2022-09-09 20:42] LABS: Absolute Neutrophil Count 6.5 X10^3/uL (2.0-7.7); Basophil# 0.09 X10^3/uL; Eosinophil# 0.13 X10^3/uL; Eosinophils% 1.4 % (0-5); Hematocrit 43.7 % (37-47); Hemoglobin 14.3 g/dL (12.0-15.0); Mean Corp Hgb Conc 32.7 g/dL (32-36); Mean Corpuscular Hgb 27.2 pg (27.0-32.0); Mean Corpuscular Volume 83.1 fL (81-99); Mean Platelet Vol. 9.2 fl (6.2-12.0); Monocyte# 0.54 X10^3/uL; NRBC Flagged by Analyzer 0 % (0-5); Neutrophil # 6.48 X10^3/uL (2.7-7.7); Neutrophil % 72.3 % (47-70); Platelet Count 290 K/mm3 (150-450); RBC Distribution Width CV 12.7 % (11.6-14.6); RBC Distribution Width SD 38.2 fl (35.1-43.9); Red Blood Count 5.26 M/mm3 (4.2-5.4)
[2022-09-09 20:43] LABS: POSITIVE COUNT NO; POSITIVE DIFFERENTIAL NO; POSITIVE MORPHOLOGY NO
[2022-09-09] MEDS: Ondansetron 4 MG/2 ML Vial IV ×2 (20:44→23:41)
[2022-09-09] MEDS: Morphine 4 MG/ML Syringe IV ×2 (20:44→23:41)
[2022-09-09 21:04] LABS: AST(SGOT) 18 U/L (15-37); Alanine Aminotransfer ALT/SGPT 18 U/L (13-56); Albumin, Serum 2.8 g/dL (3.2-5.0); Alkaline Phosphatase 109 U/L (45-117); Anion Gap 5 (5-15); BUN 6 mg/dL (7-18); Bilirubin, Direct 0.19 mg/dL (0.00-0.30); Calcium,Total 8.8 mg/dL (8.5-10.1); Chloride 98 mmol/L (98-107); Creatinine, Serum 0.67 mg/dL (0.55-1.02); EST Glomerular Filtration Rate 99 mL/min (>60); Est Glom Filt Rate - Afr Amer 120 mL/min (>60); Globulin 3.9 g/dL (2.2-4.2); Glucose 306 mg/dL (74-106); Lipase 47 U/L (73-393); Potassium 3.5 mmol/L (3.5-5.1); Protein, Total 6.7 g/dL (6.4-8.2); Sodium Level 134 mmol/L (136-145); Troponin-I HS 14 pg/mL (3.0-54.0)
--- NOTE | 2022-09-09 22:35 | RAD_ITS ---
STUDY: X-RAY - RIGHT FOOT CLINICAL: Female, 52 years old. Pain. Surgery 3 days ago. Nausea and vomiting. TECHNIQUE: 3 view(s) of the foot. COMPARISON: Right foot, September 05, 2022 FINDINGS: 3 normal talus and tarsal bones. Normal visualized subtalar, talonavicular, calcaneocuboid, tarsal and tarsometatarsal articulations. Normal first through fourth metatarsi. Slight irregularity of the distal fifth metatarsal which is unchanged from prior exam. Question healed fracture Normal metatarsophalangeal joint of the great toe. Normal tibial and fibular sesamoid bones. Normal interphalangeal joint of the great toe. Normal phalanges of the great toe. Normal third through fifth metatarsophalangeal joints. There is surgical absence of the second toe. Otherwise normal interphalangeal joints and phalanges of the lesser toes. The soft tissue structures are unremarkable. RAD/Foot min 3 Views IMPRESSION: No interval change when compared with study of 4 days earlier. Electronically Signed: Rishi Green DO at 22:52 EDT ,
[2022-09-09 23:11] LABS: Bacteria 0 SEEN /hpf (None Seen); Mucous, Urine 0 SEEN /hpf (<or=2+)
[2022-09-09 23:20] LABS: Color, Urine Yellow (Yellow); Glucose, Dipstick 1000 mg/dl (Normal); Ketone-Dipstick Negative (Negative); Leukocyte Esterase-Dipstick 25 /ul (Negative); Nitrite-Dipstick Negative (Negative); Occult Blood-Urine 25 /ul (Negative); Protein-Dipstick 100 mg/dl (Negative); Specific Gravity, Urine 1.015 (1.002-1.030); Urine Bilirubin Dipstick Negative (Negative); Urine Clarity Sl. Cloudy (Clear); Urine Urobilinogen Normal (Normal)
[2022-09-09 23:35] LABS: Red Blood Cells-Urine 0-5 SEEN /hpf (0-5); Squamous Epithelial Cells - UA 5-10 SEEN /hpf (5-10); White Blood Cells 0-5 SEEN /hpf (0-5)
[2022-09-09 23:43] VITALS: BP 123/74
--- NOTE | 2022-09-10 00:55 | EX.ED.DYSGE1 ---
HPI History of Present Illness Chief Complaint: Nausea/Vomiting Informant: patient Onset/Context/Timing Onset: Days Narrative Narrative: Patient presents secondary to nausea and vomiting along with foot pain. She had her right second toe amputated recently. She states she was discharged from the hospital a week ago and just has not felt well. She complains of nausea and vomiting and cannot keep anything down. She states that she started to get some chest pain from her vomiting. She was seen in the ER a few days ago and had an unremarkable work-up. She is scheduled to see podiatry again this coming week. [facility] Medical History CAD (coronary artery disease), [place] coronary artery CHF (congestive heart failure) GERD (gastroesophageal reflux disease) HTN (hypertension) Hx of fracture of humerus Hyperlipidemia Toe amputee Home Medications alendronate 70 mg tablet 70 mg PO [facility] 07/25/22 [History Last Taken Unknown] cholecalciferol (vitamin D3) 25 mcg (1,000 unit) tablet 1,000 unit PO DAILY 07/25/22 [History Last Taken Unknown] insulin glargine 100 unit/mL (3 mL) subcutaneous pen (Lantus Solostar U-100 Insulin) 10 units subcut BID 07/25/22 [History Last Taken Unknown] omeprazole 40 mg capsule,delayed release 40 mg PO DAILY #30 caps 07/25/22 [Rx Last Taken Unknown] dicyclomine 20 mg tablet 20 mg PO BID #14 tabs 08/03/22 [Rx Last Taken Unknown] atorvastatin 80 mg tablet 80 mg PO DAILY #90 tabs 08/09/22 [Rx Last Taken Unknown] calcium carbonate 500 mg calcium (1,250 mg) tablet 1 tablet PO DAILY 08/09/22 [History Last Taken Unknown] cilostazol 50 mg tablet 50 mg PO BID #60 tabs 08/09/22 [Rx Last Taken Unknown] clopidogrel 75 mg tablet (Plavix) 75 mg PO DAILY #30 tabs 08/09/22 [Rx Last Taken Unknown] desvenlafaxine succinate 25 mg tablet,extended release 24 hr 1 ea PO DAILY 08/09/22 [History Last Taken Unknown] glimepiride 4 mg tablet 1 tablet PO DAILY 08/09/22 [History Last Taken Unknown] trazodone 50 mg tablet 25 - 100 mg PO QHS PRN Insomnia 08/09/22 [History Last Taken Unknown] aspirin 81 mg capsule 81 mg PO DAILY 08/10/22 [History Last Taken 08/10/22] gabapentin 300 mg capsule (Neurontin) 300 mg PO TID #30 caps 08/14/22 [Rx Last Taken Unknown] escitalopram oxalate 10 mg tablet 10 mg PO DAILY DEPRESSION 08/30/22 [History Last Taken Unknown] amoxicillin 875 mg-potassium clavulanate 125 mg tablet 1 tab PO BID #15 tabs 09/02/22 [Rx Last Taken Unknown] carvedilol 3.125 mg tablet 3.125 mg PO BID #60 tabs 09/02/22 [Rx Last Taken Unknown] lisinopril 10 mg tablet 10 mg PO DAILY #30 tabs 09/02/22 [Rx Last Taken Unknown] nicotine 21 mg/24 hr daily transdermal patch 21 mg transdermal DAILY #30 ea 09/02/22 [Rx Last Taken Unknown] oxycodone 5 mg tablet 5 - 10 mg PO Q6H PRN Pain (Scale Score 7-10) 5 days #30 tabs 09/02/22 [Rx Last Taken Unknown] oxycodone-acetaminophen 5 mg-325 mg tablet 1 tab PO Q6H PRN PRN Pain 3 days #12 TABLETS 09/05/22 [Rx Last Taken Unknown] oxycodone-acetaminophen 5 mg-325 mg tablet 1 tab PO Q6H PRN PRN Pain 3 days #12 TABLETS 09/05/22 [Rx Last Taken Unknown] ondansetron 4 mg disintegrating tablet 4 mg PO Q8H PRN PRN Nausea #10 tabs 09/10/22 [Rx Last Taken Unknown] oxycodone-acetaminophen 5 mg-325 mg tablet (Percocet) 1 tab PO Q8H PRN pain 3 days #10 tabs 09/10/22 [Rx Last Taken Unknown] Allergy/AdvReac Type Severity Reaction Status Date / Time latex Allergy Hives Verified 09/09/22 18:24 Family History Other Diabetes Heart disease Surgical History History of cholecystectomy Social History household members: spouse and children housing: house Smoking Status: Current every day smoker tobacco type: cigarettes alcohol intake: never what type of physical activity do you participate in: none do you feel safe at home: Yes ROS ROS ED Constitutional Constitutional ED: Denies chills or fever(s) Eyes Eyes: Denies change in vision or discharge from eye(s) ENT ENT ED: Denies discharge from eye(s), rhinorrhea or sore throat Cardiovascular Cardiovascular: Reports chest pain; Denies palpitations Respiratory/Chest Respiratory/Chest: Denies cough or dyspnea Gastrointestinal Gastrointestinal: Reports abdominal pain, nausea and vomiting; Denies diarrhea Genitourinary Genitourinary ED: Denies difficulty urinating or dysuria Musculoskeletal Musculoskeletal: Reports back pain, extremity pain and myalgias Integumentary Denies Abrasions or rash Neurologic Neurologic: Reports weakness; Denies headache(s) Psychiatric Psychiatric: Denies anxiety or depression Allergic/Immunologic Allergic/Immunologic ED: Denies lip swelling or urticaria EXAM Physical Exam Const Vital Signs: 09/09/22 18:22 09/09/22 23:43 Temperature 97.4 F L Temperature Source Temporal Pulse Rate 111 H Respiratory Rate 16 Blood Pressure 132/85 H 123/74 H Blood Pressure Mean 100 90 Pulse Ox 99 Oxygen Delivery Method Room Air Positive well nourished and well developed General Appearance ED: well developed HEENT Reports normocephalic and head/scalp atraumatic Eyes PERRL and EOMs intact bilaterally Neck supple Chest Wall inspection of chest normal and palpation of chest normal Resp normal respiratory effort and clear to auscultation bilaterally Cardio regular rhythm Rate: tachycardic GI GI Narrative: Abdomen soft with mild diffuse tenderness to palpation. No guarding or rebound. Palpation: soft Back/Spine no CVA tenderness Extremity Extremity Narrative: Right second toe amputation site is clean with sutures intact. No sign of infection. Neuro oriented x3 Sensorium / Orientation: alert Psych Mood & Affect: anxious and tearful MDM MDM MDM Narrative Medical decision making narrative: Patient is given morphine and Zofran along with IV fluids. Labwork obtained to evaluate for leukocytosis, anemia, and electrolyte derangement. Right foot x-ray obtained. Urinalysis obtained to evaluate for infection/hematuria. Lab Data Attestation: I reviewed the patient's lab results. Labs: Laboratory Results - last 24 hr 09/09/22 09/09/22 09/09/22 20:30 20:30 23:00 WBC 9.0 RBC 5.26 Hgb 14.3 Hct 43.7 MCV 83.1 MCH 27.2 MCHC 32.7 RDW Std Deviation 38.2 RDW Coeff of Spencer 12.7 Plt Count 290 MPV 9.2 Immature Gran % (Auto) 0.300 Neut % (Auto) 72.3 H Lymph % (Auto) 19.0 Toombs % (Auto) 6.0 Eos % (Auto) 1.4 Baso % (Auto) 1.0 Absolute Neuts (auto) 6.5 Absolute Lymphs (auto) 1.70 Nucleated RBC % 0 Sodium 134 L Potassium 3.5 Chloride 98 Carbon Dioxide 31.0 Anion Gap 5 BUN 6 L Creatinine 0.67 Estim Creat Clear Calc 96.60 Est GFR (MDRD) Af Amer 120 Est GFR (MDRD) Non-Af 99 BUN/Creatinine Ratio 9.0 L Glucose 306 H Calcium 8.8 Total Bilirubin 0.70 Direct Bilirubin 0.19 AST 18 ALT 18 Alkaline Phosphatase 109 Troponin I High Sens 14 Total Protein 6.7 Albumin 2.8 L Globulin 3.9 Lipase 47 L Urine Color Yellow Urine Clarity Sl. Cloudy Urine pH 8.0 Ur Specific [place] 1.015 Urine Protein 100 H Urine Glucose (UA) 1000 H Urine Ketones Negative Urine Occult Blood 25 H Urine Nitrite Negative Urine Bilirubin Negative Urine Urobilinogen Normal Ur Leukocyte Esterase 25 H Urine RBC 0-5 SEEN Urine WBC 0-5 SEEN Ur Squamous Epith Cells 5-10 SEEN Urine Bacteria 0 SEEN Urine Mucus 0 SEEN Radiography Diagnostic Testing: Clinical Impression(s) from Imaging Studies Foot X-Ray 09/09/22 22:35 IMPRESSION: No interval change when compared with study of 4 days earlier. Electronically Signed: Rishi Green DO at 22:52 EDT Reading Location ID and State: [address] [place] [address] Tel [phone], Service support , EKG Initial EKG: Attestation: I personally reviewed and interpreted this EKG as follows: Interpretation: Sinus Tachycardia (Sinus tach at 108. No acute ischemia.) Treatment and Re-Evaluation :: CBC was normal white count and differential. Chemistry studies unremarkable other than glucose elevated at 306. LFTs and lipase normal. Urinalysis shows no sign of acute infection. No urine ketones are noted. Right foot x-rays per my interpretation reveal postoperative changes with no acute finding. Radiology interpretation is reviewed and agrees. EKG reveals no acute ischemia. Patient was given a second dose of morphine and Zofran due to continued nausea. At this time she is tolerating ice chips. I advised her that her lab work is unremarkable and I have no reason to keep her in the hospital. She will be given a prescription for Zofran. I did review her prior pain medication prescriptions. She should be out of her pain medication at this time. I will write her a short course of Percocet for continued pain control until she sees her surgeon. Discharge Plan Triage Chief Complaint: Nausea/Vomiting ED Provider: Griselda Christina Dx/Rx/DC Orders Clinical Impression: Post-op pain, Vomiting Instructions: ED Post Op Wound Check, Pain, ED Vomiting (Adult) Prescriptions: New ondansetron 4 mg tablet,disintegrating 4 mg PO Q8H PRN PRN (Reason: Nausea) Qty: 10 0RF oxycodone-acetaminophen [Percocet] 5-325 mg tablet 1 tab PO Q8H PRN (Reason: pain) 3 Days Qty: 10 0RF No Action desvenlafaxine succinate 25 mg tablet extended release 24 hr 1 ea PO DAILY Label Comments: TAKE 1 TABLET BY MOUTH DAILY FOR 5 DAYS, THEN INCREASE TO 2 (TWO) TABLETS DAILY trazodone 50 mg tablet 25 - 100 mg PO QHS PRN (Reason: Insomnia) glimepiride 4 mg tablet 1 tablet PO DAILY calcium carbonate 500 mg calcium (1,250 mg) tablet 1 tablet PO DAILY cilostazol 50 mg tablet 50 mg PO BID Qty: 60 2RF atorvastatin 80 mg tablet 80 mg PO DAILY Qty: 90 3RF clopidogrel [Plavix] 75 mg tablet 75 mg PO DAILY Qty: 30 2RF alendronate 70 mg tablet 70 mg PO WE Label Comments: take one tablet weekly HAS ONLY TAKEN 1X SINCE RX'D cholecalciferol (vitamin D3) 25 mcg (1,000 unit) tablet 1,000 unit PO DAILY Label Comments: TAKE 1 TABLET DAILY insulin glargine [Lantus Solostar U-100 Insulin] 100 unit/mL (3 mL) insulin pen 10 units subcut BID omeprazole 40 mg capsule,delayed release(DR/EC) 40 mg PO DAILY Qty: 30 0RF dicyclomine 20 mg tablet 20 mg PO BID Qty: 14 0RF aspirin 81 mg Capsule 81 mg PO DAILY gabapentin [Neurontin] 300 mg capsule 300 mg PO TID Qty: 30 0RF escitalopram oxalate 10 mg Tablet 10 mg PO DAILY Label Comments: HAS NOT REFILLED SINCE 04/25, BUT STATES SHE TAKES DAILY carvedilol 3.125 mg Tablet 3.125 mg PO BID Qty: 60 0RF lisinopril 10 mg Tablet 10 mg PO DAILY Qty: 30 0RF nicotine 21 mg/24 hr Patch 24 Hour 21 mg transdermal DAILY Qty: 30 0RF oxycodone 5 mg Tablet 5 - 10 mg PO Q6H PRN (Reason: Pain (Scale Score 7-10)) 5 Days Qty: 30 0RF Rx Instructions: may take with 650 mg Tylenol four times a day amoxicillin-pot clavulanate 875-125 mg tablet 1 tab PO BID Qty: 15 0RF Rx Instructions: take with food, start with dinner tonite oxycodone-acetaminophen [oxycodone-acetaminophen] 5-325 mg tablet 1 tab PO Q6H PRN PRN (Reason: Pain) 3 Days Qty: 12 0RF oxycodone-acetaminophen [oxycodone-acetaminophen] 5-325 mg tablet 1 tab PO Q6H PRN PRN (Reason: Pain) 3 Days Qty: 12 0RF Primary Care Provider: [facility] Finney Referrals: Jesse Littlejohn DPM [Med Staff - Active Staff] - [facility] - 1 Week Disposition Disposition: Home, Self Care
== END 2022-09-10 01:44 | disposition home or self-care (01) ==
PROVIDERS: Emergency Provider Emergency Medicine; Visit Provider Emergency Medicine
DX: G89.18 Other acute postprocedural pain (principal); I11.0 Hypertensive heart disease with heart failure; I50.9 Heart failure, unspecified; R11.2 Nausea with vomiting, unspecified; I25.10 Atherosclerotic heart disease of native coronary artery without angina pectoris; E78.5 Hyperlipidemia, unspecified; F17.210 Nicotine dependence, cigarettes, uncomplicated; Z79.82 Long term (current) use of aspirin; K21.9 Gastro-esophageal reflux disease without esophagitis
CPT/HCPCS: 73630; 80048; 80076; 81001; 83690; 84484; 85025; 93005; 96374; 96375; 96376; 99284; A4216; J2405

== ENCOUNTER 2022-09-11 14:27 | Emergency (ER) | payer MEDICAID, SELFPAY ==
[2022-09-11 14:27] VITALS: BP 151/104; PULSE 120; RESP 16; TEMP 36.2; O2SAT 100; BMI 24.4
--- NOTE | 2022-09-11 15:40 | CT_ITS ---
STUDY: CT ABDOMEN AND PELVIS WITH CONTRAST REASON FOR EXAM: Female, 52 years old. lower abd pain RADIATION DOSAGE (If Supplied By Facility): CTDIvol = ( 18.59 ) mGy, DLP = ( 918.10 ) mGycm TECHNIQUE: Transaxial images were obtained from the dome of the diaphragm to the symphysis pubis without oral contrast. IV 100mL Isovue-300 was administered. Sagittal and coronal images were reconstructed. Individualized dose optimization techniques were used for this CT. COMPARISON: None. FINDINGS: The visualized lung bases are unremarkable. The visualized portions of the heart are within normal limits. Normal liver. Status post cholecystectomy. No significant dilatation of the extrahepatic biliary system. Normal spleen. Normal pancreas. 1.8 cm right adrenal nodule. 1.1 cm left adrenal nodule. Normal right kidney. 2 cm cyst in the left kidney. Normal visualized stomach. Normal small intestine. Mild diverticulosis of the colon. Diffuse colonic fecal retention. Mild mesenteric stranding/thickening adjacent to the descending colon. The appendix is not visualized. Calcified abdominal aorta. Normal inferior vena cava. Normal retroperitoneum. Normal urinary bladder. Normal abdominal wall. Normal osseous structures. CT/Abdomen/Pelvis W IV Cont ONLY IMPRESSION: Mild diverticulosis of the colon. Diffuse colonic fecal retention. Mild mesenteric stranding/thickening adjacent to the descending colon. Left perirenal cyst. Bilateral adrenal nodules. Electronically Signed: Raghav Parker DO at 18:32 EDT ,
--- NOTE | 2022-09-11 15:42 | ED.VIS.GI ---
HPI HPI - GI History of Present Illness Chief Complaint: Abd Pain Informant: patient Narrative Narrative: Patient presents with nausea vomiting and abdominal pain. She states it started yesterday. She denies having a history of abdominal pain like this. She does have history of mild constipation. She only moves her bowels about every 2 days. She last moved her bowels Sunday which would be 3 days ago. No blood in the stool. She has not had fevers or chills. She has had nausea and vomiting. She does feel like she needs to move her bowels but states she mostly has pain in the lower abdomen on both sides. She states sometimes it radiates toward her back but is mostly the abdomen. She denies known history of kidney stones. She states normally for pain she only takes aspirin but her online prescribing report that I reviewed does show a fair number of narcotics that might be contributing to some chronic constipation issues. Patient also has known diabetes. But she states her sugars have been controlled. She will so had surgery for osteomyelitis on the right second toe past but states that its not really bothering her. It seems to be doing better. Prior surgeries include and cholecystectomy. She still has her appendix. No hysterectomy. [facility] Medical History CAD (coronary artery disease), [place] coronary artery CHF (congestive heart failure) GERD (gastroesophageal reflux disease) HTN (hypertension) Hx of fracture of humerus Hyperlipidemia Toe amputee Home Medications alendronate 70 mg tablet 70 mg PO [facility] 07/25/22 [History Last Taken Unknown] cholecalciferol (vitamin D3) 25 mcg (1,000 unit) tablet 1,000 unit PO DAILY 07/25/22 [History Last Taken Unknown] insulin glargine 100 unit/mL (3 mL) subcutaneous pen (Lantus Solostar U-100 Insulin) 10 units subcut BID 07/25/22 [History Last Taken Unknown] omeprazole 40 mg capsule,delayed release 40 mg PO DAILY #30 caps 07/25/22 [Rx Last Taken Unknown] dicyclomine 20 mg tablet 20 mg PO BID #14 tabs 08/03/22 [Rx Last Taken Unknown] atorvastatin 80 mg tablet 80 mg PO DAILY #90 tabs 08/09/22 [Rx Last Taken Unknown] calcium carbonate 500 mg calcium (1,250 mg) tablet 1 tablet PO DAILY 08/09/22 [History Last Taken Unknown] cilostazol 50 mg tablet 50 mg PO BID #60 tabs 08/09/22 [Rx Last Taken Unknown] clopidogrel 75 mg tablet (Plavix) 75 mg PO DAILY #30 tabs 08/09/22 [Rx Last Taken Unknown] desvenlafaxine succinate 25 mg tablet,extended release 24 hr 1 ea PO DAILY 08/09/22 [History Last Taken Unknown] glimepiride 4 mg tablet 1 tablet PO DAILY 08/09/22 [History Last Taken Unknown] trazodone 50 mg tablet 25 - 100 mg PO QHS PRN Insomnia 08/09/22 [History Last Taken Unknown] aspirin 81 mg capsule 81 mg PO DAILY 08/10/22 [History Last Taken 08/10/22] gabapentin 300 mg capsule (Neurontin) 300 mg PO TID #30 caps 08/14/22 [Rx Last Taken Unknown] escitalopram oxalate 10 mg tablet 10 mg PO DAILY DEPRESSION 08/30/22 [History Last Taken Unknown] amoxicillin 875 mg-potassium clavulanate 125 mg tablet 1 tab PO BID #15 tabs 09/02/22 [Rx Last Taken Unknown] carvedilol 3.125 mg tablet 3.125 mg PO BID #60 tabs 09/02/22 [Rx Last Taken Unknown] lisinopril 10 mg tablet 10 mg PO DAILY #30 tabs 09/02/22 [Rx Last Taken Unknown] nicotine 21 mg/24 hr daily transdermal patch 21 mg transdermal DAILY #30 ea 09/02/22 [Rx Last Taken Unknown] oxycodone 5 mg tablet 5 - 10 mg PO Q6H PRN Pain (Scale Score 7-10) 5 days #30 tabs 09/02/22 [Rx Last Taken Unknown] oxycodone-acetaminophen 5 mg-325 mg tablet 1 tab PO Q6H PRN PRN Pain 3 days #12 TABLETS 09/05/22 [Rx Last Taken Unknown] oxycodone-acetaminophen 5 mg-325 mg tablet 1 tab PO Q6H PRN PRN Pain 3 days #12 TABLETS 09/05/22 [Rx Last Taken Unknown] ondansetron 4 mg disintegrating tablet 4 mg PO Q8H PRN PRN Nausea #10 tabs 09/10/22 [Rx Last Taken Unknown] oxycodone-acetaminophen 5 mg-325 mg tablet (Percocet) 1 tab PO Q8H PRN pain 3 days #10 tabs 09/10/22 [Rx Last Taken Unknown] ondansetron 4 mg disintegrating tablet 4 mg PO Q8H PRN PRN Nausea #10 tabs 09/11/22 [Rx Last Taken Unknown] promethazine 25 mg tablet 25 mg PO Q6H PRN PRN Nausea #10 TABLETS 09/11/22 [Rx Last Taken Unknown] Allergy/AdvReac Type Severity Reaction Status Date / Time latex Allergy Hives Verified 09/11/22 15:01 Family History Other Diabetes Heart disease Surgical History History of cholecystectomy Social History household members: spouse and children housing: house Smoking Status: Current every day smoker tobacco type: cigarettes alcohol intake: never what type of physical activity do you participate in: none do you feel safe at home: Yes ROS ROS ED Constitutional Constitutional ED: Denies chills or fever(s) ENT ENT ED: Denies rhinorrhea Cardiovascular Cardiovascular: Denies chest pain or palpitations Respiratory/Chest Respiratory/Chest: Denies cough or dyspnea Gastrointestinal Gastrointestinal: Reports abdominal pain, constipation and nausea; Denies diarrhea or melena Genitourinary Genitourinary ED: Denies dysuria, hematuria or urinary frequency Musculoskeletal Musculoskeletal: Reports back pain and other Details: She states her right foot is actually doing well. ; Denies arthralgias Integumentary Denies rash Neurologic Neurologic: Denies headache(s) Endocrine Endocrinology: Denies polydipsia or polyuria Hematologic/Lymphatic Hematologic/Lymphatic: Denies easy bleeding or easy bruising EXAM Physical Exam Narrative Exam Narrative: Patient is awake alert laying on bed. HEENT does show some dry mucous membranes. Neck is supple Lungs are clear. No pain with a deep breath. Saturations are normal at 100% on room air showing no hypoxia. Heart is regular. Currently she has a rate of about 90-105. I hear no murmur. Peripheral pulses are equal. Abdomen is soft. Bowel sounds are still present and normal. Does not appear to be distended. She has variable tenderness at the lower abdomen. No rebound guarding. No CVA tenderness. Extremities show well wrapped toe. I did take down part of her boot. There is no drainage. No erythema or swelling. No odor. Neurologically she is awake alert and appropriate. Const Vital Signs: 09/11/22 14:27 09/11/22 17:14 09/11/22 19:10 Temperature 97.2 F L Temperature Source Temporal Pulse Rate 120 H 107 H 102 H Respiratory Rate 16 18 18 Blood Pressure 151/104 H 137/82 H 129/85 H Blood Pressure Mean 119 100 99 Pulse Ox 100 92 93 Oxygen Delivery Method Room Air Room Air Room Air MDM MDM MDM Narrative Medical decision making narrative: My independent interpretation of the patient's CT of the abdomen does show a little bit of thickening in the left colon. Final reading shows increased stool mild mesenteric stranding and thickening near the descending colon. No diverticulitis mention but there is diverticulosis. Patient's white count and hemoglobin are up a little bit. This might be due to a little bit of volume loss. But her electrolytes look good. No sign of significant dehydration. But looking back of her past labs this is really about where she runs. Liver function test look good. Urine shows closed but no acute infection lactic acid is normal. I talk with the patient about options. She feels she is constipated. CT does show this. It also shows some thickening but this might also be from straining. There is no sign of diverticulitis. She just finished her Augmentin from the toe infection. She states milk of magnesia usually helps her. She has not tried this yet. She will take this at home as it is [id number]. I will write for some Phenergan and Zofran. If she is having further symptoms she will return. But at this point we discussed options and do not feel she needs to come in the hospital. Lab Data Attestation: I reviewed the patient's lab results. Labs: Laboratory Results - last 24 hr 09/11/22 09/11/22 09/11/22 15:16 15:50 15:50 WBC 14.8 H RBC 5.71 H Hgb 15.7 H Hct 47.8 H MCV 83.7 MCH 27.5 MCHC 32.8 RDW Std Deviation 38.4 RDW Coeff of [place] 12.8 Plt Count 290 MPV 9.3 Immature Gran % (Auto) 0.500 Neut % (Auto) 85.8 H Lymph % (Auto) 7.6 L [place] % (Auto) 4.7 Eos % (Auto) 0.8 Baso % (Auto) 0.6 Absolute Neuts (auto) 12.7 H Absolute Lymphs (auto) 1.13 Nucleated RBC % 0 Sodium 134 L Potassium 3.9 Chloride 100 Carbon Dioxide 31.0 Anion Gap 3 L BUN 10 Creatinine 0.71 Estim Creat Clear Calc 91.16 Est GFR (MDRD) Af Amer 112 Est GFR (MDRD) Non-Af 93 BUN/Creatinine Ratio 14.1 Glucose 325 H Lactic Acid Calcium 8.9 Total Bilirubin 0.60 AST 18 ALT 21 Alkaline Phosphatase 115 Total Protein 7.1 Albumin 3.0 L Globulin 4.1 Albumin/Globulin Ratio 0.7 L Lipase 172 Urine Color Yellow Urine Clarity Clear Urine pH 7.0 Ur Specific [place] 1.015 Urine Protein 100 H Urine Glucose (UA) 1000 H Urine Ketones Negative Urine Occult Blood 25 H Urine Nitrite Negative Urine Bilirubin Negative Urine Urobilinogen Normal Ur Leukocyte Esterase Negative Urine RBC 0 SEEN Urine WBC 0 SEEN Ur Squamous Epith Cells 0-5 SEEN Urine Bacteria 0 SEEN Urine Mucus 0 SEEN 09/11/22 15:50 WBC RBC Hgb Hct MCV MCH MCHC RDW Std Deviation RDW Coeff of [place] Plt Count MPV Immature Gran % (Auto) Neut % (Auto) Lymph % (Auto) [place] % (Auto) Eos % (Auto) Baso % (Auto) Absolute Neuts (auto) Absolute Lymphs (auto) Nucleated RBC % Sodium Potassium Chloride Carbon Dioxide Anion Gap BUN Creatinine Estim Creat Clear Calc Est GFR (MDRD) Af Amer Est GFR (MDRD) Non-Af BUN/Creatinine Ratio Glucose Lactic Acid 1.2 Calcium Total Bilirubin AST ALT Alkaline Phosphatase Total Protein Albumin Globulin Albumin/Globulin Ratio Lipase Urine Color Urine Clarity Urine pH Ur Specific [place] Urine Protein Urine Glucose (UA) Urine Ketones Urine Occult Blood Urine Nitrite Urine Bilirubin Urine Urobilinogen Ur Leukocyte Esterase Urine RBC Urine WBC Ur Squamous Epith Cells Urine Bacteria Urine Mucus Radiography Diagnostic Testing: Clinical Impression(s) from Imaging Studies Abdomen/Pelvis CT 09/11/22 15:40 IMPRESSION: Mild diverticulosis of the colon. Diffuse colonic fecal retention. Mild mesenteric stranding/thickening adjacent to the descending colon. Left perirenal cyst. Bilateral adrenal nodules. Electronically Signed: Raghav Parker DO at 18:32 EDT , EKG Initial EKG: Comments: Independent interpretation the patient's EKG shows sinus rhythm with mild tachycardic rate at 108. Diffuse nonspecific changes and LVH. But she has had some of these anterior changes in the past. She has no chest pain. ID interval is normal. QRS duration is normal. QTc is just toward the longer end at 471 ms. Discharge Plan Triage Chief Complaint: Abd Pain ED Provider: Roberto Black Dx/Rx/DC Orders Clinical Impression: Constipation, History of nausea and vomiting Instructions: ED Abdominal Pain Unkn Cause Fem, ED Constipation (Adult) Prescriptions: New promethazine [promethazine] 25 mg tablet 25 mg PO Q6H PRN PRN (Reason: Nausea) Qty: 10 0RF ondansetron [ondansetron] 4 mg tablet,disintegrating 4 mg PO Q8H PRN PRN (Reason: Nausea) Qty: 10 0RF No Action desvenlafaxine succinate 25 mg tablet extended release 24 hr 1 ea PO DAILY Label Comments: TAKE 1 TABLET BY MOUTH DAILY FOR 5 DAYS, THEN INCREASE TO 2 (TWO) TABLETS DAILY trazodone 50 mg tablet 25 - 100 mg PO QHS PRN (Reason: Insomnia) glimepiride 4 mg tablet 1 tablet PO DAILY calcium carbonate 500 mg calcium (1,250 mg) tablet 1 tablet PO DAILY cilostazol 50 mg tablet 50 mg PO BID Qty: 60 2RF atorvastatin 80 mg tablet 80 mg PO DAILY Qty: 90 3RF clopidogrel [Plavix] 75 mg tablet 75 mg PO DAILY Qty: 30 2RF alendronate 70 mg tablet 70 mg PO WE Label Comments: take one tablet weekly HAS ONLY TAKEN 1X SINCE RX'D cholecalciferol (vitamin D3) 25 mcg (1,000 unit) tablet 1,000 unit PO DAILY Label Comments: TAKE 1 TABLET DAILY insulin glargine [Lantus Solostar U-100 Insulin] 100 unit/mL (3 mL) insulin pen 10 units subcut BID omeprazole 40 mg capsule,delayed release(DR/EC) 40 mg PO DAILY Qty: 30 0RF dicyclomine 20 mg tablet 20 mg PO BID Qty: 14 0RF aspirin 81 mg Capsule 81 mg PO DAILY gabapentin [Neurontin] 300 mg capsule 300 mg PO TID Qty: 30 0RF escitalopram oxalate 10 mg Tablet 10 mg PO DAILY Label Comments: HAS NOT REFILLED SINCE 04/25, BUT STATES SHE TAKES DAILY carvedilol 3.125 mg Tablet 3.125 mg PO BID Qty: 60 0RF lisinopril 10 mg Tablet 10 mg PO DAILY Qty: 30 0RF nicotine 21 mg/24 hr Patch 24 Hour 21 mg transdermal DAILY Qty: 30 0RF oxycodone 5 mg Tablet 5 - 10 mg PO Q6H PRN (Reason: Pain (Scale Score 7-10)) 5 Days Qty: 30 0RF Rx Instructions: may take with 650 mg Tylenol four times a day amoxicillin-pot clavulanate 875-125 mg tablet 1 tab PO BID Qty: 15 0RF Rx Instructions: take with food, start with dinner tonite oxycodone-acetaminophen [oxycodone-acetaminophen] 5-325 mg tablet 1 tab PO Q6H PRN PRN (Reason: Pain) 3 Days Qty: 12 0RF oxycodone-acetaminophen [oxycodone-acetaminophen] 5-325 mg tablet 1 tab PO Q6H PRN PRN (Reason: Pain) 3 Days Qty: 12 0RF ondansetron 4 mg tablet,disintegrating 4 mg PO Q8H PRN PRN (Reason: Nausea) Qty: 10 0RF oxycodone-acetaminophen [Percocet] 5-325 mg tablet 1 tab PO Q8H PRN (Reason: pain) 3 Days Qty: 10 0RF Primary Care Provider: [facility] Ama Finney Referrals: [facility] Ama Finney [Primary Care Provider] - 1-2 Days if not improving Disposition Disposition: Home, Self Care
[2022-09-11 15:56] LABS: Bacteria 0 SEEN /hpf (None Seen); Mucous, Urine 0 SEEN /hpf (<or=2+); Red Blood Cells-Urine 0 SEEN /hpf (0-5); White Blood Cells 0 SEEN /hpf (0-5)
[2022-09-11] MEDS: Ondansetron 4 MG/2 ML Vial IV (15:59)
[2022-09-11] MEDS: 0.9% Normal Saline 1,000 ML 1000 ML IV (15:59)
[2022-09-11] MEDS: Morphine 4 MG/ML Syringe IV ×2 (15:59→18:49)
[2022-09-11 16:04] LABS: Absolute Lymphocyte Count 1.13 X10^3/uL (0.83-4.51); Absolute Neutrophil Count 12.7 X10^3/uL (2.0-7.7); Basophil# 0.09 X10^3/uL; Basophil% 0.6 % (0-1); Eosinophil# 0.12 X10^3/uL; Eosinophils% 0.8 % (0-5); Hematocrit 47.8 % (37-47); Hemoglobin 15.7 g/dL (12.0-15.0); Lymphocyte # 1.13 X10^3/ul (0.83-4.51); Lymphocyte % 7.6 % (19-41); Mean Corp Hgb Conc 32.8 g/dL (32-36); Mean Corpuscular Hgb 27.5 pg (27.0-32.0); Mean Corpuscular Volume 83.7 fL (81-99); Mean Platelet Vol. 9.3 fl (6.2-12.0); Monocyte% 4.7 % (0-10); NRBC Flagged by Analyzer 0 % (0-5); Neutrophil # 12.71 X10^3/uL (2.7-7.7); Neutrophil % 85.8 % (47-70); Platelet Count 290 K/mm3 (150-450); RBC Distribution Width CV 12.8 % (11.6-14.6); RBC Distribution Width SD 38.4 fl (35.1-43.9); Red Blood Count 5.71 M/mm3 (4.2-5.4); White Blood Count 14.8 K/mm3 (4.4-11.0)
[2022-09-11 16:09] LABS: Color, Urine Yellow (Yellow); Glucose, Dipstick 1000 mg/dl (Normal); Ketone-Dipstick Negative (Negative); Leukocyte Esterase-Dipstick Negative /ul (Negative); Nitrite-Dipstick Negative (Negative); Occult Blood-Urine 25 /ul (Negative); Protein-Dipstick 100 mg/dl (Negative); Specific Gravity, Urine 1.015 (1.002-1.030); Urine Bilirubin Dipstick Negative (Negative); Urine Clarity Clear (Clear); Urine Urobilinogen Normal (Normal)
[2022-09-11 16:16] LABS: Squamous Epithelial Cells - UA 0-5 SEEN /hpf (5-10)
[2022-09-11 16:24] LABS: ALB/GLOB Ratio 0.7 RATIO (0.9-2.4); AST(SGOT) 18 U/L (15-37); Alanine Aminotransfer ALT/SGPT 21 U/L (13-56); Alkaline Phosphatase 115 U/L (45-117); Anion Gap 3 (5-15); BUN 10 mg/dL (7-18); BUN/Creat Ratio 14.1 RATIO (10-20); Calcium,Total 8.9 mg/dL (8.5-10.1); Chloride 100 mmol/L (98-107); Creatinine, Serum 0.71 mg/dL (0.55-1.02); EST Glomerular Filtration Rate 93 mL/min (>60); Est Glom Filt Rate - Afr Amer 112 mL/min (>60); Estimated Creatinine Clearance 91.16 ml/min; Globulin 4.1 g/dL (2.2-4.2); Glucose 325 mg/dL (74-106); Lipase 172 U/L (73-393); Potassium 3.9 mmol/L (3.5-5.1); Protein, Total 7.1 g/dL (6.4-8.2); Sodium Level 134 mmol/L (136-145)
[2022-09-11 16:39] LABS: Lactic Acid 1.2 mmol/L (0.4-1.9)
[2022-09-11 17:14] VITALS: BP 137/82; PULSE 107; RESP 18; O2SAT 92
[2022-09-11] MEDS: proMETHazine 25 MG/ML Syringe 12.5 MG IM (18:49)
[2022-09-11 19:10] VITALS: BP 129/85; PULSE 102; RESP 18; O2SAT 93
[2022-09-11 20:19] VITALS: BP 142/92; PULSE 101; RESP 17; O2SAT 96
[2022-09-11] MEDS: Magnesium Hydroxide 30 ML UDC PO (20:35)
== END 2022-09-11 20:38 | disposition home or self-care (01) ==
PROVIDERS: Emergency Provider Emergency Medicine; Visit Provider Emergency Medicine
DX: K59.00 Constipation, unspecified (principal); I11.0 Hypertensive heart disease with heart failure; I50.9 Heart failure, unspecified; E11.9 Type 2 diabetes mellitus without complications; E78.5 Hyperlipidemia, unspecified; K57.30 Diverticulosis of large intestine without perforation or abscess without bleeding; I25.10 Atherosclerotic heart disease of native coronary artery without angina pectoris; F17.210 Nicotine dependence, cigarettes, uncomplicated
CPT/HCPCS: 74177; 80053; 81001; 83605; 83690; 85025; 93005; 96361; 96372; 96374; 96375; 96376; 99285; J7030; Q9967; A4216; J2405

== ENCOUNTER 2022-09-18 14:12 | Emergency (ER) | payer MEDICAID, SELFPAY ==
[2022-09-18 14:13] VITALS: BP 127/92; PULSE 109; RESP 16; TEMP 36.4; O2SAT 99; BMI 25.2
[2022-09-18] MEDS: 0.9% Normal Saline 1,000 ML 1000 ML IV (14:24)
[2022-09-18] MEDS: Ondansetron 4 MG/2 ML Vial IV (14:25)
--- NOTE | 2022-09-18 14:32 | EX.ED.DYSGE1 ---
HPI History of Present Illness Chief Complaint: Nausea/Vomiting Informant: patient Narrative Narrative: Dents increasing nausea and vomiting no hematemesis since this morning. Has been having diarrhea now had recent constipation using milk of magnesia. States symptoms occurring since her angioplasty of right leg with stent placed at. Records this is back on August [address] Ng. She had right toe amputation August [address] Littlejohn. She has been seen multiple recently for nausea vomiting and constipation. Last visit [address] scan with constipation concerning from opiate use. Still use milk of magnesia. She denies hematemesis or any bloody stools. Denies fevers. Prior similar symptoms: Yes PFSH PFS Medical History CAD (coronary artery disease), [place] coronary artery CHF (congestive heart failure) GERD (gastroesophageal reflux disease) HTN (hypertension) Hx of fracture of humerus Hyperlipidemia Toe amputee Home Medications alendronate 70 mg tablet 70 mg PO BONE [facility] 07/25/22 [History Last Taken Unknown] cholecalciferol (vitamin D3) 25 mcg (1,000 unit) tablet 1,000 unit PO DAILY 07/25/22 [History Last Taken Unknown] insulin glargine 100 unit/mL (3 mL) subcutaneous pen (Lantus Solostar U-100 Insulin) 10 units subcut BID 07/25/22 [History Last Taken Unknown] omeprazole 40 mg capsule,delayed release 40 mg PO DAILY #30 caps 07/25/22 [Rx Last Taken Unknown] dicyclomine 20 mg tablet 20 mg PO BID #14 tabs 08/03/22 [Rx Last Taken Unknown] atorvastatin 80 mg tablet 80 mg PO DAILY #90 tabs 08/09/22 [Rx Last Taken Unknown] calcium carbonate 500 mg calcium (1,250 mg) tablet 1 tablet PO DAILY 08/09/22 [History Last Taken Unknown] cilostazol 50 mg tablet 50 mg PO BID #60 tabs 08/09/22 [Rx Last Taken Unknown] clopidogrel 75 mg tablet (Plavix) 75 mg PO DAILY #30 tabs 08/09/22 [Rx Last Taken Unknown] desvenlafaxine succinate 25 mg tablet,extended release 24 hr 1 ea PO DAILY 08/09/22 [History Last Taken Unknown] glimepiride 4 mg tablet 1 tablet PO DAILY 08/09/22 [History Last Taken Unknown] trazodone 50 mg tablet 25 - 100 mg PO QHS PRN Insomnia 08/09/22 [History Last Taken Unknown] aspirin 81 mg capsule 81 mg PO DAILY 08/10/22 [History Last Taken 08/10/22] gabapentin 300 mg capsule (Neurontin) 300 mg PO TID #30 caps 08/14/22 [Rx Last Taken Unknown] escitalopram oxalate 10 mg tablet 10 mg PO DAILY DEPRESSION 08/30/22 [History Last Taken Unknown] amoxicillin 875 mg-potassium clavulanate 125 mg tablet 1 tab PO BID #15 tabs 09/02/22 [Rx Last Taken Unknown] carvedilol 3.125 mg tablet 3.125 mg PO BID #60 tabs 09/02/22 [Rx Last Taken Unknown] lisinopril 10 mg tablet 10 mg PO DAILY #30 tabs 09/02/22 [Rx Last Taken Unknown] nicotine 21 mg/24 hr daily transdermal patch 21 mg transdermal DAILY #30 ea 09/02/22 [Rx Last Taken Unknown] oxycodone 5 mg tablet 5 - 10 mg PO Q6H PRN Pain (Scale Score 7-10) 5 days #30 tabs 09/02/22 [Rx Last Taken Unknown] oxycodone-acetaminophen 5 mg-325 mg tablet 1 tab PO Q6H PRN PRN Pain 3 days #12 TABLETS 09/05/22 [Rx Last Taken Unknown] oxycodone-acetaminophen 5 mg-325 mg tablet 1 tab PO Q6H PRN PRN Pain 3 days #12 TABLETS 09/05/22 [Rx Last Taken Unknown] ondansetron 4 mg disintegrating tablet 4 mg PO Q8H PRN PRN Nausea #10 tabs 09/10/22 [Rx Last Taken Unknown] oxycodone-acetaminophen 5 mg-325 mg tablet (Percocet) 1 tab PO Q8H PRN pain 3 days #10 tabs 09/10/22 [Rx Last Taken Unknown] ondansetron 4 mg disintegrating tablet 4 mg PO Q8H PRN PRN Nausea #10 tabs 09/11/22 [Rx Last Taken Unknown] promethazine 25 mg tablet 25 mg PO Q6H PRN PRN Nausea #10 TABLETS 09/11/22 [Rx Last Taken Unknown] ondansetron 4 mg disintegrating tablet 4 mg PO Q8H PRN PRN Nausea #10 tabs 09/18/22 [Rx Last Taken Unknown] oxycodone-acetaminophen 5 mg-325 mg tablet (Percocet) 1 tab PO Q8H PRN pain 4 days #10 tabs 09/18/22 [Rx Last Taken Unknown] Allergy/AdvReac Type Severity Reaction Status Date / Time latex Allergy Hives Verified 09/18/22 14:15 Family History Other Diabetes Heart disease Surgical History History of cholecystectomy Social History household members: spouse and children housing: house Smoking Status: Current every day smoker tobacco type: cigarettes alcohol intake: never what type of physical activity do you participate in: none do you feel safe at home: Yes ROS ROS ED Constitutional Constitutional ED: Denies chills, fever(s) or sweats Eyes Eyes: Denies change in vision ENT ENT ED: Denies dysphagia or sore throat Cardiovascular Cardiovascular: Denies chest pain, leg edema, palpitations or racing heartbeat Respiratory/Chest Respiratory/Chest: Denies cough, dyspnea or dyspnea on exertion Gastrointestinal Gastrointestinal: Reports abdominal pain, diarrhea, nausea and vomiting Genitourinary Genitourinary ED: Denies dysuria, hematuria or urinary frequency Musculoskeletal Musculoskeletal: Denies back pain, extremity pain or neck pain Integumentary Denies rash or wounds Neurologic Neurologic: Denies headache(s), paresthesias or weakness EXAM Physical Exam Const Vital Signs: 09/18/22 14:13 Temperature 97.6 F L Temperature Source Temporal Pulse Rate 109 H Respiratory Rate 16 Blood Pressure 127/92 H Blood Pressure Mean 103 Pulse Ox 99 Oxygen Delivery Method Room Air Positive well nourished and well developed General Appearance ED: well developed and NAD HEENT Reports dry mucous membranes HEENT Narrative: Mild dry mucosal membranes normocephalic and atraumatic Mouth ED: Yes dry mucous membranes Mouth: dry mucous membranes Eyes PERRL, EOMs intact bilaterally and conjunctivae normal General Eye ED: Yes normal appearance of both eyes Neck no lymphadenopathy and supple General: Negative for tenderness Chest Wall Chest: Negative for tenderness Resp normal respiratory effort and normal air movement Effort and Inspection: symmetric chest movement; Negative for respiratory distress Cardio regular rhythm and no murmurs Rate: tachycardic Peripheral Pulses: pulses 2+ throughout GI normal to inspection, nondistended, normoactive bowel sounds GI Narrative: General lysed tenderness there is no guarding or rebound. Negative Jimenez's McBurney's tenderness. Palpation: Negative for guarding or rebound tenderness present Back/Spine no CVA tenderness and no thoracic nor lumbar tenderness Extremity normal to inspection General Extremety ED: Negative for edema or tenderness General Extremity: Negative for edema Neuro oriented x3 and no sensory deficits noted Sensorium / Orientation: awake and alert Skin no rashes or lesions noted and no wounds MDM MDM MDM Narrative Medical decision making narrative: Interventions / MDM: Differential diagnosis: Nausea and vomiting, dehydration, nonspecific abdominal pain, right hip fracture, right hip contusion Diagnosis considered but do not suspect: Groin pseudoaneurysm or abscess, but denies pain in the groin area. Bowel obstruction however she is having loose stools since her constipation with bowel movements. My EKG interpretation: N/A Imaging independently reviewed and interpreted by myself: Right hip x-ray 3 views: No fracture or dislocation External documents reviewed: Multiple ER visits previously for her foot pain. Her last opiate prescription was 8 days ago for 3 days. Test considered but not ordered:N/A ED course: Patient nonsurgical abdomen and reported vomiting with no hematemesis. She is ordered for labs fluids and antiemetics with Levsin however reported nursing she is drinking fluids prior to medicines given. Labs are stable sodium 132 she has been this low previously, last night because her vomiting symptoms are creatinine 0.9 pain.. White count 9.5 hemoglobin 17. Lipase and liver enzymes normal. Reevaluation complaining of right hip pain and not abdomen, she denies history of gastric ulcers. Toradol was given. Glucose 425, normal anion gap. Review of records she has had persistent elevated glucose high 300s. She is on Lantus and glipizide no other diabetic medications. She states managed by her PCP team. She is given 10 units of insulin. Re-evaluation: Glucose down to 285. Reported persistent right hip pain further discussion she had a mechanical fall after leaving the hospital 2 weeks ago. Evaluation her records from multiple visits of foot pain, there is no discussion of this. I will send her for image studies for her hip. She is noted to be ambulating in the department. She would like stronger medications, oxycodone we ordered. 1840: X-ray negative. Patient was ambulated in the department. Abdomen soft on reevaluation. Short prescription for oxycodone as there is no overlap on her OARRS. She understands constipation risks she states she is on stool softeners. Refills by her PCP. Refill of Zofran for home. She is tolerating oral intake in the ED. Disposition discussed with patient/family/significant other: Patient and family Case discussed with consulting clinician: N/A Lab Data Attestation: I reviewed the patient's lab results. Labs: Laboratory Results - last 24 hr 09/18/22 09/18/22 09/18/22 14:23 14:23 15:00 WBC 9.5 RBC 6.20 H Hgb 17.0 H Hct 51.3 H MCV 82.7 MCH 27.4 MCHC 33.1 RDW Std Deviation 38.1 RDW Coeff of Spencer 12.7 Plt Count 268 MPV 9.4 Immature Gran % (Auto) 0.400 Neut % (Auto) 74.8 H Lymph % (Auto) 18.4 L Norton % (Auto) 5.3 Eos % (Auto) 0.7 Baso % (Auto) 0.4 Absolute Neuts (auto) 7.1 Absolute Lymphs (auto) 1.74 Nucleated RBC % 0 Sodium Cancelled 132 L Potassium Cancelled 4.7 Chloride Cancelled 100 Carbon Dioxide Cancelled 30.0 Anion Gap Cancelled 2 L BUN Cancelled 18 Creatinine Cancelled 0.99 Estim Creat Clear Calc Cancelled 62.94 Est GFR (MDRD) Af Amer Cancelled 76 Est GFR (MDRD) Non-Af Cancelled 63 BUN/Creatinine Ratio Cancelled 18.2 Glucose Cancelled 425 H Calcium Cancelled 9.0 Total Bilirubin Cancelled 0.70 Direct Bilirubin Cancelled 0.18 AST Cancelled 14 L ALT Cancelled 19 Alkaline Phosphatase Cancelled 111 Total Protein Cancelled 6.7 Albumin Cancelled 2.8 L Globulin Cancelled 3.9 Albumin/Globulin Ratio Cancelled 0.7 L Lipase POC Glucose 09/18/22 09/18/22 15:00 17:30 WBC RBC Hgb Hct MCV MCH MCHC RDW Std Deviation RDW Coeff of Spencer Plt Count MPV Immature Gran % (Auto) Neut % (Auto) Lymph % (Auto) Norton % (Auto) Eos % (Auto) Baso % (Auto) Absolute Neuts (auto) Absolute Lymphs (auto) Nucleated RBC % Sodium Potassium Chloride Carbon Dioxide Anion Gap BUN Creatinine Estim Creat Clear Calc Est GFR (MDRD) Af Amer Est GFR (MDRD) Non-Af BUN/Creatinine Ratio Glucose Calcium Total Bilirubin Direct Bilirubin AST ALT Alkaline Phosphatase Total Protein Albumin Globulin Albumin/Globulin Ratio Lipase 27 POC Glucose 281 H Radiography Diagnostic Testing: Clinical Impression(s) from Imaging Studies Hip/Pelvis X-Ray 09/18/22 18:20 IMPRESSION: No evidence for acute hip or pelvic fracture If pain persists MRI recommended for further evaluation Electronically Signed: Torito Campos MD at 18:41 EDT , Discharge Plan Triage Chief Complaint: Nausea/Vomiting ED Provider: Zack Card Dx/Rx/DC Orders Clinical Impression: Hyperglycemia, Nausea & vomiting, Hyponatremia, Abdominal pain, Hip pain, right Instructions: Abdominal Pain, ED Diabetic Hyperglycemia, ED Hip Contusion, ED Hyponatremia, ED Vomiting (Adult) Prescriptions: New oxycodone-acetaminophen [Percocet] 5-325 mg tablet 1 tab PO Q8H PRN (Reason: pain) 4 Days Qty: 10 0RF ondansetron [ondansetron] 4 mg tablet,disintegrating 4 mg PO Q8H PRN PRN (Reason: Nausea) Qty: 10 0RF No Action desvenlafaxine succinate 25 mg tablet extended release 24 hr 1 ea PO DAILY Label Comments: TAKE 1 TABLET BY MOUTH DAILY FOR 5 DAYS, THEN INCREASE TO 2 (TWO) TABLETS DAILY trazodone 50 mg tablet 25 - 100 mg PO QHS PRN (Reason: Insomnia) glimepiride 4 mg tablet 1 tablet PO DAILY calcium carbonate 500 mg calcium (1,250 mg) tablet 1 tablet PO DAILY cilostazol 50 mg tablet 50 mg PO BID Qty: 60 2RF atorvastatin 80 mg tablet 80 mg PO DAILY Qty: 90 3RF clopidogrel [Plavix] 75 mg tablet 75 mg PO DAILY Qty: 30 2RF alendronate 70 mg tablet 70 mg PO WE Label Comments: take one tablet weekly HAS ONLY TAKEN 1X SINCE RX'D cholecalciferol (vitamin D3) 25 mcg (1,000 unit) tablet 1,000 unit PO DAILY Label Comments: TAKE 1 TABLET DAILY insulin glargine [Lantus Solostar U-100 Insulin] 100 unit/mL (3 mL) insulin pen 10 units subcut BID omeprazole 40 mg capsule,delayed release(DR/EC) 40 mg PO DAILY Qty: 30 0RF dicyclomine 20 mg tablet 20 mg PO BID Qty: 14 0RF aspirin 81 mg Capsule 81 mg PO DAILY gabapentin [Neurontin] 300 mg capsule 300 mg PO TID Qty: 30 0RF escitalopram oxalate 10 mg Tablet 10 mg PO DAILY Label Comments: HAS NOT REFILLED SINCE 04/25, BUT STATES SHE TAKES DAILY carvedilol 3.125 mg Tablet 3.125 mg PO BID Qty: 60 0RF lisinopril 10 mg Tablet 10 mg PO DAILY Qty: 30 0RF nicotine 21 mg/24 hr Patch 24 Hour 21 mg transdermal DAILY Qty: 30 0RF oxycodone 5 mg Tablet 5 - 10 mg PO Q6H PRN (Reason: Pain (Scale Score 7-10)) 5 Days Qty: 30 0RF Rx Instructions: may take with 650 mg Tylenol four times a day amoxicillin-pot clavulanate 875-125 mg tablet 1 tab PO BID Qty: 15 0RF Rx Instructions: take with food, start with dinner tonite oxycodone-acetaminophen [oxycodone-acetaminophen] 5-325 mg tablet 1 tab PO Q6H PRN PRN (Reason: Pain) 3 Days Qty: 12 0RF oxycodone-acetaminophen [oxycodone-acetaminophen] 5-325 mg tablet 1 tab PO Q6H PRN PRN (Reason: Pain) 3 Days Qty: 12 0RF ondansetron 4 mg tablet,disintegrating 4 mg PO Q8H PRN PRN (Reason: Nausea) Qty: 10 0RF oxycodone-acetaminophen [Percocet] 5-325 mg tablet 1 tab PO Q8H PRN (Reason: pain) 3 Days Qty: 10 0RF promethazine [promethazine] 25 mg tablet 25 mg PO Q6H PRN PRN (Reason: Nausea) Qty: 10 0RF ondansetron [ondansetron] 4 mg tablet,disintegrating 4 mg PO Q8H PRN PRN (Reason: Nausea) Qty: 10 0RF Primary Care Provider: [facility] Ama Finney Referrals: [facility] Ama Finney [Primary Care Provider] - 3-5 Days Activity Restrictions/Additional Instructions: Hip x-ray negative. Labs are stable. Follow-up with your doctor. Disposition Disposition: Home, Self Care
[2022-09-18 14:36] LABS: Absolute Lymphocyte Count 1.74 X10^3/uL (0.83-4.51); Absolute Neutrophil Count 7.1 X10^3/uL (2.0-7.7); Basophil# 0.04 X10^3/uL; Basophil% 0.4 % (0-1); Eosinophil# 0.07 X10^3/uL; Eosinophils% 0.7 % (0-5); Hematocrit 51.3 % (37-47); Lymphocyte # 1.74 X10^3/ul (0.83-4.51); Lymphocyte % 18.4 % (19-41); Mean Corp Hgb Conc 33.1 g/dL (32-36); Mean Corpuscular Hgb 27.4 pg (27.0-32.0); Mean Corpuscular Volume 82.7 fL (81-99); Mean Platelet Vol. 9.4 fl (6.2-12.0); Monocyte% 5.3 % (0-10); NRBC Flagged by Analyzer 0 % (0-5); Neutrophil # 7.07 X10^3/uL (2.7-7.7); Neutrophil % 74.8 % (47-70); Platelet Count 268 K/mm3 (150-450); RBC Distribution Width CV 12.7 % (11.6-14.6); RBC Distribution Width SD 38.1 fl (35.1-43.9); White Blood Count 9.5 K/mm3 (4.4-11.0)
[2022-09-18] MEDS: Hyoscyamine Sulfate 0.125 MG Tablet SL (14:54)
[2022-09-18 15:22] LABS: ALB/GLOB Ratio 0.7 RATIO (0.9-2.4); AST(SGOT) 14 U/L (15-37); Alanine Aminotransfer ALT/SGPT 19 U/L (13-56); Albumin, Serum 2.8 g/dL (3.2-5.0); Alkaline Phosphatase 111 U/L (45-117); Anion Gap 2 (5-15); BUN 18 mg/dL (7-18); BUN/Creat Ratio 18.2 RATIO (10-20); Bilirubin, Direct 0.18 mg/dL (0.00-0.30); Chloride 100 mmol/L (98-107); Creatinine, Serum 0.99 mg/dL (0.55-1.02); EST Glomerular Filtration Rate 63 mL/min (>60); Est Glom Filt Rate - Afr Amer 76 mL/min (>60); Estimated Creatinine Clearance 62.94 ml/min; Globulin 3.9 g/dL (2.2-4.2); Glucose 425 mg/dL (74-106); Potassium 4.7 mmol/L (3.5-5.1); Protein, Total 6.7 g/dL (6.4-8.2); Sodium Level 132 mmol/L (136-145)
[2022-09-18 15:46] LABS: Lipase 27 U/L (13-75)
[2022-09-18] MEDS: Insulin Lispro 100 UNIT/ML INSULN.PEN 10 UNIT SC (16:03)
[2022-09-18] MEDS: Ketorolac 15 MG/ML Vial IV (16:03)
[2022-09-18 17:50] LABS: Bedside Glucose 281 mg/dL (74-106)
[2022-09-18] MEDS: oxyCODONE 5 MG Tablet PO (18:12)
--- NOTE | 2022-09-18 18:20 | RAD_ITS ---
STUDY: X-RAY - PELVIS AND RIGHT HIP REASON FOR EXAM: Female, 52 years old. injury TECHNIQUE: 3 views of the pelvis and hip. COMPARISON: None. FINDINGS: There is a non-specific bowel gas pattern. Normal visualized soft tissue structures. Normal bilateral iliac wings, sacroiliac joints and visualized sacrum. Normal bilateral superior and inferior pubic rami. Normal pubic symphysis. Normal bilateral ischial tuberosities. Femoral stent noted within the soft tissues of the right hip Normal visualized femoral head. Normal acetabulum. Normal hip joint. RAD/HIP, UNI W/ Pelvis 2-3 Views IMPRESSION: No evidence for acute hip or pelvic fracture If pain persists MRI recommended for further evaluation Electronically Signed: Torito Campos MD at 18:41 EDT ,
[2022-09-18 18:57] VITALS: BP 126/83; PULSE 74; RESP 16; O2SAT 98
== END 2022-09-18 18:59 | disposition home or self-care (01) ==
PROVIDERS: Emergency Provider Emergency Medicine; Visit Provider Emergency Medicine
DX: R73.9 Hyperglycemia, unspecified (principal); Z95.5 Presence of coronary angioplasty implant and graft; I25.10 Atherosclerotic heart disease of native coronary artery without angina pectoris; E78.5 Hyperlipidemia, unspecified; M25.551 Pain in right hip; R19.7 Diarrhea, unspecified; E87.1 Hypo-osmolality and hyponatremia; R10.9 Unspecified abdominal pain; R11.2 Nausea with vomiting, unspecified; F17.210 Nicotine dependence, cigarettes, uncomplicated; K21.9 Gastro-esophageal reflux disease without esophagitis; I10 Essential (primary) hypertension
CPT/HCPCS: 73502; 80053; 82248; 82962; 83690; 85025; 96361; 96374; 96375; 99285; J7030; A4216; J2405

== ENCOUNTER 2022-10-01 11:07 | Emergency (ER) | payer MEDICAID, SELFPAY ==
[2022-10-01 11:09] VITALS: BP 119/80; PULSE 102; RESP 24; TEMP 35.4; O2SAT 100; BMI 25.2
--- NOTE | 2022-10-01 11:16 | RAD_ITS ---
HISTORY: constipation. TECHNIQUE: XR Abdomen 1 View. COMPARISON: CT 09/11/2022. FINDINGS: BOWEL GAS PATTERN: No dilated small bowel loops identified. Moderate amount of stool and air distending the colon and moderate to large amount of stool dilating the rectum . FREE AIR: Not assessed on supine view. CALCIFICATIONS: Calcification posterior to the left pelvis again seen. Multiple pelvic phleboliths. BONES: Mild degenerative change. SOFT TISSUES: Right upper quadrant surgical clips. Right lower quadrant surgical clips. RAD/Abdomen Single View IMPRESSION: Moderate amount of stool and air throughout the colon with moderate to large amount of stool dilating the rectum. Electronically Signed: Ashlie Moreno MD at 11:54 EDT ,
--- NOTE | 2022-10-01 11:23 | ED.VIS.GI ---
HPI HPI - GI History of Present Illness Chief Complaint: Constipation Informant: patient Abdominal Pain/Flank Pain Onset: Days Context: Gradual Onset Timing: Continuous Current Severity: Mild Maximum Severity: Mild Nausea/Vomiting/Emesis GI Symptom: Positive for Nausea Severity: Mild Diarrhea/Melena/Hematochezia GI Symptom: Positive for Diarrhea, Melena and Hematochezia Associated Symptoms Associated Symptoms: Negative for Dysuria or Frequency Narrative Narrative: 52-year-old female history of diabetes, hypertension, CAD. Only prior abdominal surgeries for cholecystectomy. States she is recently been dealing with constipation. She had one of her toes amputated due to osteomyelitis and was on pain medications. States she has been intermittently having constipation. She did have a bowel movement yesterday but states she feels like she cannot push out the stool its in her rectum. Denies fever. Denies dysuria. Denies any significant abdominal pain. Some mild cramping. No prior history of obstruction. Prior similar symptoms: Yes Recent Illness/Hospitalization: No PFSH PFSH Medical History CAD (coronary artery disease), [place] coronary artery CHF (congestive heart failure) GERD (gastroesophageal reflux disease) HTN (hypertension) Hx of fracture of humerus Hyperlipidemia Toe amputee Home Medications alendronate 70 mg tablet 70 mg PO [facility] 07/25/22 [History Last Taken Unknown] cholecalciferol (vitamin D3) 25 mcg (1,000 unit) tablet 1,000 unit PO DAILY 07/25/22 [History Last Taken Unknown] insulin glargine 100 unit/mL (3 mL) subcutaneous pen (Lantus Solostar U-100 Insulin) 10 units subcut BID 07/25/22 [History Last Taken Unknown] omeprazole 40 mg capsule,delayed release 40 mg PO DAILY #30 caps 07/25/22 [Rx Last Taken Unknown] dicyclomine 20 mg tablet 20 mg PO BID #14 tabs 08/03/22 [Rx Last Taken Unknown] atorvastatin 80 mg tablet 80 mg PO DAILY #90 tabs 08/09/22 [Rx Last Taken Unknown] calcium carbonate 500 mg calcium (1,250 mg) tablet 1 tablet PO DAILY 08/09/22 [History Last Taken Unknown] cilostazol 50 mg tablet 50 mg PO BID #60 tabs 08/09/22 [Rx Last Taken Unknown] clopidogrel 75 mg tablet (Plavix) 75 mg PO DAILY #30 tabs 08/09/22 [Rx Last Taken Unknown] desvenlafaxine succinate 25 mg tablet,extended release 24 hr 1 ea PO DAILY 08/09/22 [History Last Taken Unknown] glimepiride 4 mg tablet 1 tablet PO DAILY 08/09/22 [History Last Taken Unknown] trazodone 50 mg tablet 25 - 100 mg PO QHS PRN Insomnia 08/09/22 [History Last Taken Unknown] aspirin 81 mg capsule 81 mg PO DAILY 08/10/22 [History Last Taken 08/10/22] gabapentin 300 mg capsule (Neurontin) 300 mg PO TID #30 caps 08/14/22 [Rx Last Taken Unknown] escitalopram oxalate 10 mg tablet 10 mg PO DAILY DEPRESSION 08/30/22 [History Last Taken Unknown] amoxicillin 875 mg-potassium clavulanate 125 mg tablet 1 tab PO BID #15 tabs 09/02/22 [Rx Last Taken Unknown] carvedilol 3.125 mg tablet 3.125 mg PO BID #60 tabs 09/02/22 [Rx Last Taken Unknown] lisinopril 10 mg tablet 10 mg PO DAILY #30 tabs 09/02/22 [Rx Last Taken Unknown] nicotine 21 mg/24 hr daily transdermal patch 21 mg transdermal DAILY #30 ea 09/02/22 [Rx Last Taken Unknown] oxycodone 5 mg tablet 5 - 10 mg PO Q6H PRN Pain (Scale Score 7-10) 5 days #30 tabs 09/02/22 [Rx Last Taken Unknown] oxycodone-acetaminophen 5 mg-325 mg tablet 1 tab PO Q6H PRN PRN Pain 3 days #12 TABLETS 09/05/22 [Rx Last Taken Unknown] oxycodone-acetaminophen 5 mg-325 mg tablet 1 tab PO Q6H PRN PRN Pain 3 days #12 TABLETS 09/05/22 [Rx Last Taken Unknown] ondansetron 4 mg disintegrating tablet 4 mg PO Q8H PRN PRN Nausea #10 tabs 09/10/22 [Rx Last Taken Unknown] oxycodone-acetaminophen 5 mg-325 mg tablet (Percocet) 1 tab PO Q8H PRN pain 3 days #10 tabs 09/10/22 [Rx Last Taken Unknown] ondansetron 4 mg disintegrating tablet 4 mg PO Q8H PRN PRN Nausea #10 tabs 09/11/22 [Rx Last Taken Unknown] promethazine 25 mg tablet 25 mg PO Q6H PRN PRN Nausea #10 TABLETS 09/11/22 [Rx Last Taken Unknown] ondansetron 4 mg disintegrating tablet 4 mg PO Q8H PRN PRN Nausea #10 tabs 09/18/22 [Rx Last Taken Unknown] oxycodone-acetaminophen 5 mg-325 mg tablet (Percocet) 1 tab PO Q8H PRN pain 4 days #10 tabs 09/18/22 [Rx Last Taken Unknown] Allergy/AdvReac Type Severity Reaction Status Date / Time latex Allergy Hives Verified 10/01/22 11:11 Family History Other Diabetes Heart disease Surgical History History of cholecystectomy Social History household members: spouse and children housing: house Smoking Status: Current every day smoker tobacco type: cigarettes alcohol intake: never what type of physical activity do you participate in: none do you feel safe at home: Yes ROS ROS ED ROS Narrative Constipation. Mild nausea Review of Systems ROS Unobtainable: Denies due to encephalopathy Constitutional Constitutional ED: Denies chills or fever(s) ENT ENT ED: Denies ear pain Cardiovascular Cardiovascular: Denies chest pain Respiratory/Chest Respiratory/Chest: Denies cough or dyspnea Gastrointestinal Gastrointestinal: Reports abdominal pain, constipation and nausea; Denies diarrhea, melena or vomiting Genitourinary Genitourinary ED: Denies dysuria or hematuria Musculoskeletal Musculoskeletal: Denies arthralgias Integumentary Denies abscess Neurologic Neurologic: Denies headache(s) Psychiatric Psychiatric: Denies anxiety Endocrine Endocrinology: Denies polydipsia Hematologic/Lymphatic Hematologic/Lymphatic: Denies easy bleeding Allergic/Immunologic Allergic/Immunologic ED: Denies mouth swelling or tongue swelling EXAM Physical Exam Narrative Exam Narrative: Well-appearing 52-year-old female. Vital signs stable afebrile. No distress. H EENT exam unremarkable. Moist mucous members. Lungs clear. Heart regular rhythm rate about 95 no murmur. Chest wall nontender. Abdomen soft, nondistended, normal bowel sounds, no peritoneal signs. No signs of obstruction. Moving all 4 extremities. Nontender no edema. Neurologically she is awake and alert with no focal motor deficits. Const Vital Signs: 10/01/22 11:09 Temperature 95.7 F L Temperature Source Temporal Pulse Rate 102 H Respiratory Rate 24 H Blood Pressure 119/80 Blood Pressure Mean 93 Pulse Ox 100 Oxygen Delivery Method Room Air Positive well nourished, well developed and obese; Negative for cachectic, contractures or unkempt General Appearance ED: well developed and NAD; Negative for unkempt, cachectic, contractures or pallor Nutritional Appearance: obese; Negative for cachectic HEENT Reports moist mucous membranes normocephalic and atraumatic; Negative for trauma or tenderness Eyes PERRL General Eye ED: Negative for pale conjunctiva or scleral icterus Neck no lymphadenopathy, supple and no JVD General: Negative for tenderness Carotids: Negative for other Lymph Lymphatic: Negative for other Resp normal respiratory effort and clear to auscultation bilaterally Effort and Inspection: Negative for respiratory distress or retractions Auscultation: Negative for rales, rhonchi or wheezes Cardio regular rate, regular rhythm, S1 normal heart sound, S2 normal heart sound and no murmurs Rate: Negative for bradycardia or tachycardic Rhythm: Negative for abnormal rhythm GI non-tender, non-distended and no masses Inspection: Negative for abdominal distention Auscultation: normoactive bowel sounds Palpation: soft; Negative for tender, guarding or rigid Back/Spine no CVA tenderness Extremity full ROM General Extremety ED: Negative for edema or tenderness General Extremity: Negative for edema Neuro CN's II-XII intact bilaterally and moves all extremities Sensorium / Orientation: alert, oriented to person, oriented to place and oriented to time; Negative for orientation impaired, confused, lethargic or stuporous Motor Exam: strength 5/5 throughout Psych mental status grossly normal and thought process normal Appearance: Negative for unkempt Attitude: No agitated Mood & Affect: Negative for depressed, anxious or tearful Skin no wounds General Skin Exam: Negative for jaundice or pallor Lesions: no lesions Rashes: no rashes Trauma: Negative for abrasion Nails: Negative for discolored MDM MDM MDM Narrative Medical decision making narrative: 52-year-old constipation. Exam benign. Will obtain a KUB. KUB is consistent with constipation. No obstruction. She will be discharged home with [facility]. Radiography Diagnostic Testing: Clinical Impression(s) from Imaging Studies KUB X-Ray 10/01/22 11:16 IMPRESSION: Moderate amount of stool and air throughout the colon with moderate to large amount of stool dilating the rectum. Electronically Signed: Ashlie Moreno MD at 11:54 EDT Reading Location ID and State: [facility] / [place] Tel , Service support , KUB, single view, interpreted both by myself and the radiologist. Shows increased left-sided stool content and stool in the rectum. No obstruction. Discharge Plan Triage Chief Complaint: Constipation Other Complaint: Abd Pain ED Provider: Ananda Coyle Dx/Rx/DC Orders Clinical Impression: Constipation, History of diabetes mellitus Instructions: ED Constipation (Adult) Prescriptions: No Action desvenlafaxine succinate 25 mg tablet extended release 24 hr 1 ea PO DAILY Label Comments: TAKE 1 TABLET BY MOUTH DAILY FOR 5 DAYS, THEN INCREASE TO 2 (TWO) TABLETS DAILY trazodone 50 mg tablet 25 - 100 mg PO QHS PRN (Reason: Insomnia) glimepiride 4 mg tablet 1 tablet PO DAILY calcium carbonate 500 mg calcium (1,250 mg) tablet 1 tablet PO DAILY cilostazol 50 mg tablet 50 mg PO BID Qty: 60 2RF atorvastatin 80 mg tablet 80 mg PO DAILY Qty: 90 3RF clopidogrel [Plavix] 75 mg tablet 75 mg PO DAILY Qty: 30 2RF alendronate 70 mg tablet 70 mg PO WE Label Comments: take one tablet weekly HAS ONLY TAKEN 1X SINCE RX'D cholecalciferol (vitamin D3) 25 mcg (1,000 unit) tablet 1,000 unit PO DAILY Label Comments: TAKE 1 TABLET DAILY insulin glargine [Lantus Solostar U-100 Insulin] 100 unit/mL (3 mL) insulin pen 10 units subcut BID omeprazole 40 mg capsule,delayed release(DR/EC) 40 mg PO DAILY Qty: 30 0RF dicyclomine 20 mg tablet 20 mg PO BID Qty: 14 0RF aspirin 81 mg Capsule 81 mg PO DAILY gabapentin [Neurontin] 300 mg capsule 300 mg PO TID Qty: 30 0RF escitalopram oxalate 10 mg Tablet 10 mg PO DAILY Label Comments: HAS NOT REFILLED SINCE 04/25, BUT STATES SHE TAKES DAILY carvedilol 3.125 mg Tablet 3.125 mg PO BID Qty: 60 0RF lisinopril 10 mg Tablet 10 mg PO DAILY Qty: 30 0RF nicotine 21 mg/24 hr Patch 24 Hour 21 mg transdermal DAILY Qty: 30 0RF oxycodone 5 mg Tablet 5 - 10 mg PO Q6H PRN (Reason: Pain (Scale Score 7-10)) 5 Days Qty: 30 0RF Rx Instructions: may take with 650 mg Tylenol four times a day amoxicillin-pot clavulanate 875-125 mg tablet 1 tab PO BID Qty: 15 0RF Rx Instructions: take with food, start with dinner tonite oxycodone-acetaminophen [oxycodone-acetaminophen] 5-325 mg tablet 1 tab PO Q6H PRN PRN (Reason: Pain) 3 Days Qty: 12 0RF oxycodone-acetaminophen [oxycodone-acetaminophen] 5-325 mg tablet 1 tab PO Q6H PRN PRN (Reason: Pain) 3 Days Qty: 12 0RF ondansetron 4 mg tablet,disintegrating 4 mg PO Q8H PRN PRN (Reason: Nausea) Qty: 10 0RF oxycodone-acetaminophen [Percocet] 5-325 mg tablet 1 tab PO Q8H PRN (Reason: pain) 3 Days Qty: 10 0RF promethazine [promethazine] 25 mg tablet 25 mg PO Q6H PRN PRN (Reason: Nausea) Qty: 10 0RF ondansetron [ondansetron] 4 mg tablet,disintegrating 4 mg PO Q8H PRN PRN (Reason: Nausea) Qty: 10 0RF oxycodone-acetaminophen [Percocet] 5-325 mg tablet 1 tab PO Q8H PRN (Reason: pain) 4 Days Qty: 10 0RF ondansetron [ondansetron] 4 mg tablet,disintegrating 4 mg PO Q8H PRN PRN (Reason: Nausea) Qty: 10 0RF Primary Care Provider: Ama Dickey Referrals: [facility] Ama Finney [Primary Care Provider] - 3-5 Days if not improving Activity Restrictions/Additional Instructions: Plenty of fluids such as water, prune juice and fruits, vegetables and fiber to help with constipation. GoLytely: Drink 6 to 8 ounce is every hour as needed and to have a bowel movement. Disposition Disposition: Home, Self Care
[2022-10-01] MEDS: Electrolyte Solution/Peg's 4000 ML 2000 ML PO (12:14)
== END 2022-10-01 12:20 | disposition home or self-care (01) ==
PROVIDERS: Emergency Provider Emergency Medicine; Referring Provider Emergency Medicine; Visit Provider Emergency Medicine
DX: K59.00 Constipation, unspecified (principal); Z89.429 Acquired absence of other toe(s), unspecified side; E11.9 Type 2 diabetes mellitus without complications; E78.5 Hyperlipidemia, unspecified; I25.10 Atherosclerotic heart disease of native coronary artery without angina pectoris; E66.9 Obesity, unspecified; F17.210 Nicotine dependence, cigarettes, uncomplicated; Z90.49 Acquired absence of other specified parts of digestive tract; I10 Essential (primary) hypertension
CPT/HCPCS: 74018; 99284

== ENCOUNTER 2023-01-01 12:11 | Inpatient (IN) | payer MEDICAID, SELFPAY ==
[2023-01-01] VITALS (9 sets, daily range): BP systolic 128–152; BP diastolic 87–96; PULSE 103–112; RESP 14–22; TEMP 36.8–36.9; O2SAT 85–98; BMI 27.1; BMI 25.9
--- NOTE | 2023-01-01 13:12 | CT_ITS ---
STUDY: CTA CHEST REASON FOR EXAM: Female, 52 years old. chest pain, tachycardia. Body aches. Chest pain. RADIATION DOSAGE (If Supplied By Facility): CTDIvol = ( 11.47 ) mGy, DLP = ( 450.32 ) mGycm TECHNIQUE: The examination was performed with the intravenous administration of [id number] 100ML. Post-processing of the angiographic images was performed, with multiplanar reformation and 3D reconstruction. Individualized dose optimization techniques were used for this CT. COMPARISON: None. FINDINGS: A catheter is seen within the right breast. Normal enhancement of the main pulmonary artery and right and left pulmonary arteries. Normal enhancement of the bilateral peripheral pulmonary arteries. There is no demonstrated pulmonary embolism. There is atherosclerotic calcification of the aortic arch with tortuosity. There is no demonstrated aortic dissection. Small pericardial effusion. There are calcifications of the coronary arteries. There are visualized mediastinal lymph nodes, which are within normal size limits, and with normal morphology. Normal hilar regions. Normal visualized trachea and bronchi. The lungs are well expanded. Increased interstitial markings with small bilateral pleural effusions. CHF should be ruled out. Normal pleura. Normal chest wall structures. There are degenerative changes of thoracic spine. There is a 2.2 cm x 1.9 cm cystic structure in the upper pole of the left kidney. Small hiatal hernia. CT/CTA Chest W/WO Contrast IMPRESSION: Small bilateral pleural effusions and small pericardial effusion. There is evidence of prominence of the interstitial markings in both lungs suggestive of a possible CHF. Electronically Signed: Ryan Tejeda MD at 15:28 EDT ,
--- NOTE | 2023-01-01 13:12 | EKG12_ITS ---
Test Reason : COLD SX Blood Pressure : / mmHG Vent. Rate : 110 BPM Atrial Rate : 110 BPM P-R Int : 170 ms QRS Dur : 110 ms QT Int : 348 ms P-R-T Axes : 046 -46 099 degrees QTc Int : 470 ms Sinus tachycardia Left axis deviation Moderate voltage criteria for LVH, may be normal variant ( R in aVL , [place] product ) Septal infarct , age undetermined T wave abnormality, consider lateral ischemia Abnormal ECG Confirmed by TIP HERNANDEZ, LORETA ([id number]), sound editor FELICIA HOLCOMB ([id number]) on 01/02/2023 11:03:20 AM Referred By: KATHRYN/DOMINGO Confirmed By:LORETA WHELAN MD
--- NOTE | 2023-01-01 13:14 | EDS_ITS ---
HPI History of Present Illness Chief Complaint: Cold Sx Detail of Chief Complaint: Chest pain Narrative Narrative: Patient presents to the emergency department complaint of chest pain since this morning. Patient states that she woke up coughing and subsequently developed severe pain in her chest that radiates through to her back. Patient states that she has been fighting off a cold for the last 2 to 3 days and has been taking [place] cold relief. Patient denies nausea or vomiting. At times brings up some clear phlegm. Denies fevers. Mild dyspnea. Pain worse with deep breath. Patient states that she thinks she has had heart attack but never had any stents placed or any type of intervention. 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 Currently not anticoagulated. 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 Patient also states that she has been having intermittent swelling and discomfort in her left leg from the knee down to the foot. [facility] Medical History CAD (coronary artery disease), [facility] coronary artery CHF (congestive heart failure) GERD (gastroesophageal reflux disease) HTN (hypertension) Hx of fracture of humerus Hyperlipidemia Toe amputee Home Medications alendronate 70 mg tablet 70 mg PO [employer] [facility] 07/25/22 [History Last Taken Unknown] cholecalciferol (vitamin D3) 25 mcg (1,000 unit) tablet 1,000 unit PO DAILY 07/25/22 [History Last Taken Unknown] insulin glargine 100 unit/mL (3 mL) subcutaneous pen (Lantus Solostar U-100 Insulin) 10 units subcut BID 07/25/22 [History Last Taken Unknown] omeprazole 40 mg capsule,delayed release 40 mg PO DAILY #30 caps 07/25/22 [Rx Last Taken Unknown] dicyclomine 20 mg tablet 20 mg PO BID #14 tabs 08/03/22 [Rx Last Taken Unknown] atorvastatin 80 mg tablet 80 mg PO DAILY #90 tabs 08/09/22 [Rx Last Taken Unknown] calcium carbonate 500 mg calcium (1,250 mg) tablet 1 tablet PO DAILY 08/09/22 [History Last Taken Unknown] cilostazol 50 mg tablet 50 mg PO BID #60 tabs 08/09/22 [Rx Last Taken Unknown] clopidogrel 75 mg tablet (Plavix) 75 mg PO DAILY #30 tabs 08/09/22 [Rx Last Taken Unknown] desvenlafaxine succinate 25 mg tablet,extended release 24 hr 1 ea PO DAILY 08/09 [History Last Taken Unknown] glimepiride 4 mg tablet 1 tablet PO DAILY 08/09/22 [History Last Taken Unknown] trazodone 50 mg tablet 25 - 100 mg PO QHS PRN Insomnia 08/09/22 [History Last Taken Unknown] aspirin 81 mg capsule 81 mg PO DAILY 08/10/22 [History Last Taken 08/10/22] escitalopram oxalate 10 mg tablet 10 mg PO DAILY DEPRESSION 08/30/22 [History Last Taken Unknown] carvedilol 3.125 mg tablet 3.125 mg PO BID #60 tabs 09/02/22 [Rx Last Taken Unknown] lisinopril 10 mg tablet 10 mg PO DAILY #30 tabs 09/02/22 [Rx Last Taken Unknown] nicotine 21 mg/24 hr daily transdermal patch 21 mg transdermal DAILY #30 ea 09/02/22 [Rx Last Taken Unknown] ondansetron 4 mg disintegrating tablet 4 mg PO Q8H PRN PRN Nausea #10 tabs 09/10/22 [Rx Last Taken Unknown] ondansetron 4 mg disintegrating tablet 4 mg PO Q8H PRN PRN Nausea #10 tabs 09/11/22 [Rx Last Taken Unknown] ondansetron 4 mg disintegrating tablet 4 mg PO Q8H PRN PRN Nausea #10 tabs 09/18/22 [Rx Last Taken Unknown] Allergy/AdvReac Type Severity Reaction Status Date / Time latex Allergy Hives Verified 01/01/23 12:11 Family History Other Diabetes Heart disease Surgical History History of cholecystectomy Social History household members: spouse and children housing: house Smoking Status: Current every day smoker tobacco type: cigarettes alcohol intake: never what type of physical activity do you participate in: none do you feel safe at home: Yes ROS ROS ED Review of Systems ROS Unobtainable: other Constitutional Constitutional ED: Reports lethargy; Denies chills, fever(s), sweats or weight loss Eyes Eyes: Denies blurry vision, change in vision or diplopia ENT ENT ED: Denies rhinorrhea or sore throat Cardiovascular Cardiovascular: Reports chest pain; Denies orthopnea or racing heartbeat Respiratory/Chest Respiratory/Chest: Reports cough and dyspnea; Denies dyspnea on exertion, orthopnea or sputum Gastrointestinal Gastrointestinal: Denies abdominal pain, diarrhea, nausea or vomiting Genitourinary Genitourinary ED: Denies dysuria, hematuria or urinary frequency Musculoskeletal Musculoskeletal: Denies arthralgias, back pain, myalgias or neck pain Integumentary Denies abscess, Abrasions or rash Neurologic Neurologic: Denies headache(s) or weakness Psychiatric Psychiatric: Denies anxiety, depression or suicidal thoughts Endocrine Endocrinology: Denies polydipsia, polyphagia or polyuria Hematologic/Lymphatic Hematologic/Lymphatic: Denies easy bleeding, easy bruising or lymphadenopathy Allergic/Immunologic Allergic/Immunologic ED: Denies mouth swelling, tongue swelling or urticaria EXAM Physical Exam Const Vital Signs: 01/01/23 12:11 01/01/23 12:14 01/01/23 12:26 Temperature 98.2 F Temperature Source Oral Pulse Rate 112 H 106 H Respiratory Rate 18 14 Respiratory Effort Normal Non-Labored Respiratory Depth Normal Respiratory Pattern Normal Blood Pressure 152/96 H 130/87 H Blood Pressure Mean 114 101 Pulse Ox 97 96 Oxygen Delivery Method Room Air Room Air Oxygen Flow Rate (L/min) 01/01/23 13:46 01/01/23 14:10 01/01/23 14:10 Temperature Temperature Source Pulse Rate Respiratory Rate 22 H 18 Respiratory Effort Respiratory Depth Respiratory Pattern Blood Pressure Blood Pressure Mean Pulse Ox 85 95 Oxygen Delivery Method Room Air Room Air Nasal Cannula Oxygen Flow Rate (L/min) 2 01/01/23 14:29 01/01/23 14:29 01/01/23 15:15 Temperature Temperature Source Pulse Rate 104 H Respiratory Rate 20 H 18 20 H Respiratory Effort Respiratory Depth Respiratory Pattern Blood Pressure 128/89 H Blood Pressure Mean 102 Pulse Ox 85 92 85 Oxygen Delivery Method Nasal Cannula Nasal Cannula Nasal Cannula Oxygen Flow Rate (L/min) 2 5 5 01/01/23 15:16 Temperature Temperature Source Pulse Rate Respiratory Rate 20 H Respiratory Effort Respiratory Depth Respiratory Pattern Blood Pressure Blood Pressure Mean Pulse Ox 93 Oxygen Delivery Method Non-Rebreather Oxygen Flow Rate (L/min) 15 Positive well nourished and well developed General Appearance ED: well developed and NAD HEENT Reports TM's clear and moist mucous membranes normocephalic and atraumatic; Negative for trauma or tenderness Tympanic Membrane ED: Yes TM's clear Eyes PERRL and EOMs intact bilaterally General Eye ED: Negative for pale conjunctiva or scleral icterus Neck no lymphadenopathy, supple and no JVD General: Negative for tenderness Chest Wall inspection of chest normal and palpation of chest normal Chest: Negative for tenderness Resp normal respiratory effort and clear to auscultation bilaterally Effort and Inspection: Negative for respiratory distress or pain with movement Auscultation: Negative for rhonchi, wheezes or diminished lung sounds Cardio regular rate, regular rhythm, S1 normal heart sound, S2 normal heart sound and no murmurs Peripheral Pulses: pulses 2+ throughout GI normal to inspection, nondistended, normoactive bowel sounds, soft to palpation, non-tender, non-distended and no masses Back/Spine no CVA tenderness and no thoracic nor lumbar tenderness Extremity Extremity Narrative: Left leg-no significant edema. No cellulitic changes. 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 General Extremety ED: Negative for edema General Extremity: Negative for edema Neuro oriented x3, CN's II-XII intact bilaterally, no sensory deficits noted and gait normal Sensorium / Orientation: awake, alert, oriented to person, oriented to place and oriented to time Motor Exam: strength 5/5 throughout and strength abnormal Psych mental status grossly normal Skin no rashes or lesions noted and no wounds MDM MDM MDM Narrative Medical decision making narrative: Patient presents with retrosternal chest pain radiating through to her back that is worse with breathing. She presented tachycardic. In the differential would be acute coronary syndrome versus PE versus pneumothorax versus pleurisy or pericarditis. IV established on arrival. Patient placed on a vehicle monitor technician. EKG obtained on arrival showed sinus rhythm with a rate of 110 bpm with moderate LVH and old septal infarct. When compared with prior EKG no significant changes noted. CBC with differential obtained showed a white count of 8.7 hemoglobin of 14 and platelet count of 201. Chemistries unremarkable. Glucose elevated 344. Troponin normal at 10. I did perform a CTA of the chest with IV contrast to rule out PE and this was negative for PE or dissection. Patient had small bilateral pleural effusions and small pericardial effusion and there is evidence of prominence of the interstitial markings in both lungs suggestive of possible CHF. COVID and flu testing was negative. Patient initially not hypoxic and did receive 4 mg of morphine for pain. She subsequently developed hypoxemia and despite 5 L nasal cannula O2 she was still saturating in the 88% range. Patient was not somnolent at any point and did not have any significant accessory muscle use or retractions or significant tachypnea. I did place patient on a nonrebreather mask. I did give her Lasix 40 mg IV. Patient tells me she has no history of CHF and has not been gaining weight but rather has been losing some weight. I did order a BNP. Case will be discussed with hospitalist to evaluate patient for admission for chest pain, dyspnea, hypoxemia and possible CHF. Lab Data Labs: Laboratory Results - last 24 hr 01/01/23 13:50 WBC 8.7 RBC 5.13 Hgb 14.0 Hct 43.2 MCV 84.2 MCH 27.3 MCHC 32.4 RDW Std Deviation 42.1 RDW Coeff of [place] 13.7 Plt Count 201 MPV 9.5 Immature Gran % (Auto) 0.300 Neut % (Auto) 75.1 H Lymph % (Auto) 16.1 L [place] % (Auto) 5.0 Eos % (Auto) 2.7 Baso % (Auto) 0.8 Absolute Neuts (auto) 6.5 Absolute Lymphs (auto) 1.39 Nucleated RBC % 0 Sodium 136 Potassium 4.0 Chloride 104 Carbon Dioxide 27.0 Anion Gap 5 BUN 6 L Creatinine 0.74 Estim Creat Clear Calc 84.20 Est GFR (MDRD) Af Amer 107 Est GFR (MDRD) Non-Af 88 BUN/Creatinine Ratio 8.2 L Glucose 344 H Calcium 8.7 Troponin I High Sens 10 Radiography Diagnostic Testing: Clinical Impression(s) from Imaging Studies Chest CTA 01/01/23 13:12 IMPRESSION: Small bilateral pleural effusions and small pericardial effusion. There is evidence of prominence of the interstitial markings in both lungs suggestive of a possible CHF. Electronically Signed: Ryan Tejeda MD at 15:28 EDT , Discharge Plan Triage Chief Complaint: Cold Sx ED Provider: Yvette Hanley Dx/Rx/DC Orders Clinical Impression: Acute dyspnea, Hypoxemia, Pericardial effusion, Pleural effusion, Chest pain Prescriptions: No Action desvenlafaxine succinate 25 mg tablet extended release 24 hr 1 ea PO DAILY Patient Comments: TAKE 1 TABLET BY MOUTH DAILY FOR 5 DAYS, THEN INCREASE TO 2 (TWO) TABLETS DAILY trazodone 50 mg tablet 25 - 100 mg PO QHS PRN (Reason: Insomnia) glimepiride 4 mg tablet 1 tablet PO DAILY calcium carbonate 500 mg calcium (1,250 mg) tablet 1 tablet PO DAILY cilostazol 50 mg tablet 50 mg PO BID Qty: 60 2RF atorvastatin 80 mg tablet 80 mg PO DAILY Qty: 90 3RF clopidogrel [Plavix] 75 mg tablet 75 mg PO DAILY Qty: 30 2RF alendronate 70 mg tablet 70 mg PO WE Patient Comments: take one tablet weekly HAS ONLY TAKEN 1X SINCE RX'D cholecalciferol (vitamin D3) 25 mcg (1,000 unit) tablet 1,000 unit PO DAILY Patient Comments: TAKE 1 TABLET DAILY insulin glargine [Lantus Solostar U-100 Insulin] 100 unit/mL (3 mL) insulin pen 10 units subcut BID omeprazole 40 mg capsule,delayed release(DR/EC) 40 mg PO DAILY Qty: 30 0RF dicyclomine 20 mg tablet 20 mg PO BID Qty: 14 0RF aspirin 81 mg Capsule 81 mg PO DAILY escitalopram oxalate 10 mg Tablet 10 mg PO DAILY Patient Comments: HAS NOT REFILLED SINCE 04/25, BUT STATES SHE TAKES DAILY carvedilol 3.125 mg Tablet 3.125 mg PO BID Qty: 60 0RF lisinopril 10 mg Tablet 10 mg PO DAILY Qty: 30 0RF nicotine 21 mg/24 hr Patch 24 Hour 21 mg transdermal DAILY Qty: 30 0RF ondansetron 4 mg tablet,disintegrating 4 mg PO Q8H PRN PRN (Reason: Nausea) Qty: 10 0RF ondansetron [ondansetron] 4 mg tablet,disintegrating 4 mg PO Q8H PRN PRN (Reason: Nausea) Qty: 10 0RF ondansetron [ondansetron] 4 mg tablet,disintegrating 4 mg PO Q8H PRN PRN (Reason: Nausea) Qty: 10 0RF Primary Care Provider: Medical Ama Finney Referrals: [facility],Ama Neff [Primary Care Provider] - Disposition Disposition: Acute Care Hospital [facility]
[2023-01-01] MEDS: 0.9% Normal Saline 1,000 ML 150 ML IV (13:53)
[2023-01-01] MEDS: Ondansetron 4 MG/2 ML Vial IV ×2 (13:53→20:58)
[2023-01-01] MEDS: Morphine 4 MG/ML Syringe IV (13:53)
[2023-01-01] MEDS: Aspirin 81 MG TAB.CHEW 324 MG PO (13:53)
[2023-01-01 13:56] LABS: Absolute Lymphocyte Count 1.39 X10^3/uL (0.83-4.51); Absolute Neutrophil Count 6.5 X10^3/uL (2.0-7.7); Basophil# 0.07 X10^3/uL; Basophil% 0.8 % (0-1); Eosinophil# 0.23 X10^3/uL; Eosinophils% 2.7 % (0-5); Hematocrit 43.2 % (37-47); Lymphocyte # 1.39 X10^3/ul (0.83-4.51); Lymphocyte % 16.1 % (19-41); Mean Corp Hgb Conc 32.4 g/dL (32-36); Mean Corpuscular Hgb 27.3 pg (27.0-32.0); Mean Corpuscular Volume 84.2 fL (81-99); Mean Platelet Vol. 9.5 fl (6.2-12.0); Monocyte# 0.43 X10^3/uL; NRBC Flagged by Analyzer 0 % (0-5); Neutrophil % 75.1 % (47-70); Platelet Count 201 K/mm3 (150-450); RBC Distribution Width CV 13.7 % (11.6-14.6); RBC Distribution Width SD 42.1 fl (35.1-43.9); Red Blood Count 5.13 M/mm3 (4.2-5.4); White Blood Count 8.7 K/mm3 (4.4-11.0)
[2023-01-01 14:19] LABS: Anion Gap 5 (5-15); BUN 6 mg/dL (7-18); BUN/Creat Ratio 8.2 RATIO (10-20); Calcium,Total 8.7 mg/dL (8.5-10.1); Chloride 104 mmol/L (98-107); Creatinine, Serum 0.74 mg/dL (0.55-1.02); EST Glomerular Filtration Rate 88 mL/min (>60); Est Glom Filt Rate - Afr Amer 107 mL/min (>60); Glucose 344 mg/dL (74-106); Sodium Level 136 mmol/L (136-145); Troponin-I HS (w/2H Reflex) 10 pg/mL (3.0-54.0)
[2023-01-01 15:53] LABS: Reflex Troponin-HS? (from REC) Y
[2023-01-01] MEDS: Furosemide 40 MG/4 ML Vial IV (15:59)
--- NOTE | 2023-01-01 16:40 | NURSING ---
PCU [facility]LETS[facility] CHF, HYPOXIA, TACHYPNEA, TACHYCARDIA, CHEST PAIN
[2023-01-01 17:03] LABS: BNP,B-Type NATRIURETIC PEPTIDE 573.6 pg/mL (0-100); Troponin-I HS 12 pg/mL (3.0-54.0)
[2023-01-01] MEDS: HYDROcodone Bitartrate/Apap 5/325 Tablet PO (18:41)
--- NOTE | 2023-01-01 21:13 | PCM.HP.STD ---
HPI - General General Date of Admission: 01/01/23 Date of Service: 01/01/23 Chief Complaint: Shortness of breath, cough, chest pain on coughing and deep breathing HPI Kat DENTON, is a 52 F who presents to the emergency room at [facility] with complaints of cough productive of clear phlegm, chest pain on coughing and deep breathing, and shortness of breath which started approximately 2 days ago. Patient also stated that she had some left-sided chest pain and left arm pain today. Patient had been hospitalized in September and found to have a cardiomyopathy, she was referred to a PCP, it appears that the patient was referred to cardiology at the [facility] but never answered the phone to make an appointment with cardiology. It also appears that the patient has not been taking her medications as directed, I called her pharmacy and found out that the patient had not picked up several medications for an extended period of time. Work-up in the emergency room included a chest CTA which showed small bilateral pleural effusions and a small pericardial effusion, there was evidence of prominence of the interstitial markings in both lungs suggestive of possible CHF. Upon arrival in the emergency room today, patient required 2 L of nasal cannula oxygen, at one time however she required 5 L and then 15 L of nasal cannula oxygen. Nursing states that during this timeframe she did receive IV morphine for chest discomfort however. Labs obtained on the patient revealed a normal white blood cell count, hemoglobin was normal, glucose was elevated at 344, and beta natruretic peptide was 573. Patient's rapid COVID and influenza antigens were negative. Patient will be admitted to PCU for acute systolic congestive heart failure, it appears that she has been noncompliant with her medications, I addressed this with the patient and she states that she feels the medications do not make her feel good but she cannot give me any examples of which medications she feels causes her to be unwell. [facility] Medical History (Updated 01/01/23 @ 17:18 by Elisabeth Elizalde) Alcohol abuse CAD (coronary artery disease), tangirnaq coronary artery CHF (congestive heart failure) Congestive heart failure (CHF) Depression GERD (gastroesophageal reflux disease) GERD (gastroesophageal reflux disease) HTN (hypertension) Hx of fracture of humerus Hyperlipidemia Hypertension Myocardial infarct Osteoporosis Pulmonary embolism Smoker Substance abuse Toe amputee Home Medications alendronate 70 mg tablet 70 mg PO crowdSPRING 07/25/22 [History Last Taken Unknown] cholecalciferol (vitamin D3) 25 mcg (1,000 unit) tablet 1,000 unit PO DAILY 07/25/22 [History Last Taken Unknown] insulin glargine 100 unit/mL (3 mL) subcutaneous pen (Lantus Solostar U-100 Insulin) 10 units subcut BID 07/25/22 [History Last Taken Unknown] omeprazole 40 mg capsule,delayed release 40 mg PO DAILY #30 caps 07/25/22 [Rx Last Taken Unknown] dicyclomine 20 mg tablet 20 mg PO BID #14 tabs 08/03/22 [Rx Last Taken Unknown] atorvastatin 80 mg tablet 80 mg PO DAILY #90 tabs 08/09/22 [Rx Last Taken Unknown] calcium carbonate 500 mg calcium (1,250 mg) tablet 1 tablet PO DAILY 08/09/22 [History Last Taken Unknown] cilostazol 50 mg tablet 50 mg PO BID #60 tabs 08/09/22 [Rx Last Taken Unknown] clopidogrel 75 mg tablet (Plavix) 75 mg PO DAILY #30 tabs 08/09/22 [Rx Last Taken Unknown] desvenlafaxine succinate 25 mg tablet,extended release 24 hr 1 ea PO DAILY 08/09/22 [History Last Taken Unknown] glimepiride 4 mg tablet 1 tablet PO DAILY 08/09/22 [History Last Taken Unknown] trazodone 50 mg tablet 25 - 100 mg PO QHS PRN Insomnia 08/09/22 [History Last Taken Unknown] aspirin 81 mg capsule 81 mg PO DAILY 08/10/22 [History Last Taken 08/10/22] escitalopram oxalate 10 mg tablet 10 mg PO DAILY DEPRESSION 08/30/22 [History Last Taken Unknown] carvedilol 3.125 mg tablet 3.125 mg PO BID #60 tabs 09/02/22 [Rx Last Taken Unknown] lisinopril 10 mg tablet 10 mg PO DAILY #30 tabs 09/02/22 [Rx Last Taken Unknown] nicotine 21 mg/24 hr daily transdermal patch 21 mg transdermal DAILY #30 ea 09/02/22 [Rx Last Taken Unknown] ondansetron 4 mg disintegrating tablet 4 mg PO Q8H PRN PRN Nausea #10 tabs 09/10/22 [Rx Last Taken Unknown] ondansetron 4 mg disintegrating tablet 4 mg PO Q8H PRN PRN Nausea #10 tabs 09/11/22 [Rx Last Taken Unknown] ondansetron 4 mg disintegrating tablet 4 mg PO Q8H PRN PRN Nausea #10 tabs 09/18/22 [Rx Last Taken Unknown] Allergy/AdvReac Type Severity Reaction Status Date / Time latex Allergy Hives Verified 01/01/23 16:52 Family History Other Diabetes Heart disease Surgical History History of cholecystectomy Social History household members: spouse and children housing: house Smoking Status: Current every day smoker tobacco type: cigarettes alcohol intake: never what type of physical activity do you participate in: none do you feel safe at home: Yes ROS Constitutional Constitutional: Reports weakness; Denies anorexia, change in weight, chills, fatigue, fever(s), malaise or night sweats Eyes Eyes: Denies blurry vision, change in vision, discharge from eye(s) or eye pain Cardiovascular Cardiovascular: Reports chest pain and dyspnea on exertion; Denies claudication, edema or palpitations Respiratory/Chest Respiratory/Chest: Reports cough, shortness of breath at rest and shortness of breath with exertion; Denies hemoptysis Gastrointestinal Gastrointestinal: Denies abdominal pain, constipation, diarrhea, hematemesis, hematochezia, melena, nausea or vomiting Genitourinary Genitourinary: Denies dysuria, hematuria, urinary frequency, urinary hesitancy, urinary incontinence or urinary urgency Musculoskeletal Musculoskeletal: Denies back pain, joint pain, joint stiffness, joint swelling, myalgias or neck pain Neurologic Neurologic: Denies abnormal gait, abnormal speech, confusion, dizziness, focal weakness, headache(s), loss of vision, numbness, other visual disturbances, paresthesias, syncope or tingling Psychiatric Psychiatric: Reports anxiety and depression; Denies cognitive impairment, irritability, mood swings or suicidal ideation Endocrine Endocrinology: Denies change in body appearance, cold intolerance, excessive sweating, heat intolerance, polydipsia or polyuria Hematologic/Lymphatic Hematologic/Lymphatic: Denies none, anemia, easy bleeding, easy bruising or lymphadenopathy Allergic/Immunologic Allergic/Immunologic: Denies rhinitis, urticaria, eczemia or asthma Vital Signs Vital Signs Vital Signs: 01/01/23 12:11 01/01/23 12:14 01/01/23 12:26 Temperature 98.2 F Temperature Source Oral Pulse Rate 112 H 106 H Respiratory Rate 18 14 Respiratory Effort Normal Non-Labored Respiratory Depth Normal Respiratory Pattern Normal Blood Pressure 152/96 H 130/87 H Blood Pressure Mean 114 101 Blood Pressure Source Blood Pressure Position Blood Pressure Location Pulse Ox 97 96 Oxygen Delivery Method Room Air Room Air Oxygen Flow Rate (L/min) 01/01/23 13:46 01/01/23 14:10 01/01/23 14:10 Temperature Temperature Source Pulse Rate Respiratory Rate 22 H 18 Respiratory Effort Respiratory Depth Respiratory Pattern Blood Pressure Blood Pressure Mean Blood Pressure Source Blood Pressure Position Blood Pressure Location Pulse Ox 85 95 Oxygen Delivery Method Room Air Room Air Nasal Cannula Oxygen Flow Rate (L/min) 2 01/01/23 14:29 01/01/23 14:29 01/01/23 15:15 Temperature Temperature Source Pulse Rate 104 H Respiratory Rate 20 H 18 20 H Respiratory Effort Respiratory Depth Respiratory Pattern Blood Pressure 128/89 H Blood Pressure Mean 102 Blood Pressure Source Blood Pressure Position Blood Pressure Location Pulse Ox 85 92 85 Oxygen Delivery Method Nasal Cannula Nasal Cannula Nasal Cannula Oxygen Flow Rate (L/min) 2 5 5 01/01/23 15:16 01/01/23 16:36 01/01/23 17:30 Temperature 98.2 F 98.5 F Temperature Source Oral Oral Pulse Rate 105 H 103 H Respiratory Rate 20 H 18 19 H Respiratory Effort Respiratory Depth Respiratory Pattern Blood Pressure 140/96 H 129/90 H Blood Pressure Mean 110 103 Blood Pressure Source Monitor Blood Pressure Position Semi-Fowlers Blood Pressure Location Right Arm Pulse Ox 93 98 97 Oxygen Delivery Method Non-Rebreather Nasal Cannula Nasal Cannula Oxygen Flow Rate (L/min) 15 2 2 01/01/23 18:00 Temperature Temperature Source Pulse Rate Respiratory Rate Respiratory Effort Respiratory Depth Respiratory Pattern Blood Pressure Blood Pressure Mean Blood Pressure Source Blood Pressure Position Blood Pressure Location Pulse Ox Oxygen Delivery Method Nasal Cannula Oxygen Flow Rate (L/min) Weight Weight: 72.938 kg Body Mass Index (BMI) 25.9 Physical Exam Const alert, oriented x3, no apparent distress and average body habitus Constitutional Narrative: Patient appears older than her stated age General Appearance: cooperative and well developed Orientation / Consciousness: awake, oriented to person, oriented to place and oriented to time HEENT normocephalic and moist oral mucous membranes Eyes PERRL, EOMs intact bilaterally and conjunctivae normal Neck supple, no JVD, thyroid normal and no carotid bruits General: trachea midline Resp normal respiratory effort, no retractions and no use of accessory muscles Resp Narrative: Breath sounds are diminished bilaterally more so on the right Auscultation: Negative for rales, rhonchi or wheezes Cardio regular rate, regular rhythm, S1 normal heart sound, S2 normal heart sound, no murmurs, no rub and no gallops GI normal to inspection, nondistended, normoactive bowel sounds, soft to palpation, non-tender and non-distended Extremity no clubbing, cyanosis or edema Skin no rashes or lesions noted General Skin Exam: no breakdown Neuro oriented x3, CN's II-XII intact bilaterally, moves all extremities, no focal motor deficits and no sensory deficits noted Sensorium / Orientation: awake, alert, oriented to person, oriented to place and oriented to time Speech: speech normal Psych affect normal Results Lab / Micro Data 01/01/23 13:50 01/01/23 13:50 Labs: Laboratory Results - last 24 hr 01/01/23 13:50: WBC 8.7, RBC 5.13, Hgb 14.0, Hct 43.2, MCV 84.2, MCH 27.3, MCHC 32.4, RDW Std Deviation 42.1, RDW Coeff of Spencer 13.7, Plt Count 201, MPV 9.5, Immature Gran % (Auto) 0.300, Neut % (Auto) 75.1 H, Lymph % (Auto) 16.1 L, Tensas % (Auto) 5.0, Eos % (Auto) 2.7, Baso % (Auto) 0.8, Absolute Neuts (auto) 6.5, Absolute Lymphs (auto) 1.39, Nucleated RBC % 0, Sodium 136, Potassium 4.0, Chloride 104, Carbon Dioxide 27.0, Anion Gap 5, BUN 6 L, Creatinine 0.74, Estim Creat Clear Calc 84.20, Est GFR (MDRD) Af Amer 107, Est GFR (MDRD) Non-Af 88, BUN/Creatinine Ratio 8.2 L, Glucose 344 H, Calcium 8.7, Troponin I High Sens 10 01/01/23 16:34: Troponin I High Sens 12, B-Natriuretic Peptide 573.6 H Micro: Microbiology 01/01/23 15:12 Nasal Secretion SARS-CoV-2 & FLU Antigen (Rapid) - Final Radiology Impression Chest CTA 01/01/23 13:12 IMPRESSION: Small bilateral pleural effusions and small pericardial effusion. There is evidence of prominence of the interstitial markings in both lungs suggestive of a possible CHF. Electronically Signed: Ryan Tejeda MD at 15:28 EDT , Assessment & Plan Assessment/Plan (1) Chest pain: PLAN: Plan 1. Acute on chronic systolic congestive heart failure-patient will be admitted to PCU, she will be placed on IV Lasix, her medications will be reviewed and she will be placed back on her medications. #2 noncompliance with medical regimen-I do not have a clear picture of why the patient chooses not to take her medications, she does not pay for her medications, she also does not follow-up with her physicians as directed, I spent some time talking to her about this and how hazardous it was to neglect her health. Patient seem to make a lot of excuses concerning why she does not answer the phone and follow-up as directed for her care. #3 cardiomyopathy, probably ischemic in nature-patient will need close follow-up with a washhouse hand after her discharge from the hospital, I impressed upon her that she needs to follow through with this #4 pleurisy-etiology unclear at this point, I do not think the patient has an active infection such as a pneumonia at this time, I will administer Vicodin as needed for chest pain #5 type 2 diabetes-noncompliant with treatment-patient's blood sugars will be monitored, sliding scale insulin will be used as needed, again I am unsure exactly what medications she takes as an outpatient for her type 2 diabetes. #6 peripheral vascular disease-I will maintain the patient on Plavix and aspirin, she is supposed to be on Pletal but it appears that she is not taking it at this time #7 chronic depression-it does not appear that the patient is refilling her antidepressants as directed, I will encourage her to follow-up with counseling as an outpatient #8 coronary artery disease-patient has a history of coronary artery disease, according to medical records in the past at this hospital, patient was noted to have diffuse severe disease of her distal LAD in 2018-at that time it did not appear that she needed intervention. Patient will need close follow-up as an outpatient concerning this. #9 hyperlipidemia-patient will remain on Lipitor, it appears that she has not been taking this as an outpatient Total clinical time spent by myself addressing the patient's medical issues, reviewing all of her data, and collaborating with the patient's care team: 75 minutes Charges/Coding Visit Charges Inpatient E&M: 49840 Init Hosp L3
[2023-01-01 22:20] LABS: Bedside Glucose 255 mg/dL (74-106)
[2023-01-01] MEDS: Carvedilol 3.125 MG TABLET PO (22:41)
[2023-01-01] MEDS: Heparin Injection (Vial) 5,000 UNIT/ML VIAL 5000 UNIT SC (22:41)
[2023-01-01] MEDS: Furosemide 20 MG/2 ML VIAL IV (22:42)
[2023-01-01] MEDS: Insulin Glargine-YFGN 100 UNIT/ML Pen 10 UNIT SC (22:43)
[2023-01-01] MEDS: Insulin Lispro 100 UNIT/ML INSULN.PEN SC (22:43)
[2023-01-02] VITALS (8 sets, daily range): BP systolic 111–129; BP diastolic 80–90; PULSE 86–104; RESP 15–20; TEMP 36.5–36.9; O2SAT 95–98
[2023-01-02] MEDS: HYDROcodone Bitartrate/Apap 5/325 Tablet PO ×2 (01:09→08:24)
[2023-01-02] MEDS: Ondansetron 4 MG/2 ML Vial IV ×3 (04:19→22:17)
[2023-01-02] MEDS: 0.9% Saline Lock 10 ML Syringe IV ×4 (04:22→22:17)
[2023-01-02] MEDS: Insulin Lispro 100 UNIT/ML INSULN.PEN SC ×4 (06:27→21:59)
[2023-01-02 06:28] LABS: Bedside Glucose 236 mg/dL (74-106)
[2023-01-02] MEDS: Furosemide 20 MG/2 ML VIAL IV ×3 (06:29→21:49)
[2023-01-02] MEDS: Potassium Chloride Oral Tablet 20 MEQ PO ×2 (08:25→17:20)
[2023-01-02] MEDS: Clopidogrel Bisulfate 75 MG Tablet PO (08:25)
[2023-01-02] MEDS: Aspirin 81 MG TAB.CHEW PO (08:25)
[2023-01-02] MEDS: Carvedilol 3.125 MG TABLET PO ×2 (08:25→21:50)
[2023-01-02] MEDS: Lisinopril 10 MG Tablet PO (08:26)
[2023-01-02 09:59] LABS: Anion Gap 6 (5-15); BUN 6 mg/dL (7-18); BUN/Creat Ratio 8.3 RATIO (10-20); Calcium,Total 8.7 mg/dL (8.5-10.1); Chloride 100 mmol/L (98-107); Creatinine, Serum 0.72 mg/dL (0.55-1.02); EST Glomerular Filtration Rate 90 mL/min (>60); Est Glom Filt Rate - Afr Amer 109 mL/min (>60); Estimated Creatinine Clearance 86.54 ml/min; Glucose 293 mg/dL (74-106); Potassium 3.7 mmol/L (3.5-5.1); Sodium Level 136 mmol/L (136-145)
[2023-01-02] MEDS: Heparin Injection (Vial) 5,000 UNIT/ML VIAL 5000 UNIT SC ×2 (10:26→21:49)
[2023-01-02] MEDS: Insulin Glargine-YFGN 100 UNIT/ML Pen 10 UNIT SC ×2 (10:26→21:50)
[2023-01-02 11:45] LABS: Bedside Glucose 333 mg/dL (74-106)
--- NOTE | 2023-01-02 12:05 | CASEMGMT ---
RN FILIPPO Face to Face with patient for initial transition planning/care coordination assessment. RN CM introduced self and role at [facility]. Patient lying in bed, alert and oriented. Patient willing to participate in assessment and is able to answer all questions appropriately. Care providers, pharmacy, and demographics verified. Patient wishes to discharge home, denies need for home health at this time. Patient states she has no further needs or concerns at this time. CM to follow for discharge planning needs that may arise. PCP: Ama Neff Specialists: [facility] Preferred Pharmacy: [facility] Insurance: [employer] Prescription Benefit: yes Living Will/HPOA: none LNOK: daughter Living Arrangements: Patient lives with daughter and daughter's boyfriend in a 2 story apartment. Patient is independent and able to ambulate Transportation: mother DME/HHC: Patient has raised toilet, cane, walker, and glucometer with supplies. Patient has been to [facility] in the past. Patient has had [facility]. Disposition Plan: Patient to discharge home with family support and follow up plans in place. Paula HAWKINS, RN, CM
[2023-01-02] MEDS: oxyCODONE 5 MG Tablet 15 MG PO ×2 (12:55→22:18)
[2023-01-02] MEDS: proCHLORPERazine 10 MG/2 ML Vial IV (17:18)
--- NOTE | 2023-01-02 17:26 | PCM.PN.HOSP ---
Reason for Visit Reason for Visit: Diagnoses Chest pain, unspecified (01/01/23) Subjective Subjective Patient was seen and examined today, she is no longer on any oxygen, I had a brief discussion with her mother by phone today and the patient has been undergoing some psychological stress with the loss of her children to foster care and the break-up of her marriage. I told the mother that since the mother provides transportation for the patient to go to office visits that I would get an appointment at [place] for the patient to follow-up with her cardiomyopathy. Patient's mother felt that that was a good idea. Objective Data Objective Data Vital Signs: Vital Signs Temp Pulse Resp BP Pulse Ox O2 Del Method O2 Flow Rate 97.8 F 90 15 120/80 97 Room Air 2 01/02/23 15:55 01/02/23 15:55 01/02/23 15:55 01/02/23 15:55 01/02/23 15:55 01/02/23 15:55 01/02/23 08:20 Oxygen Flow Rate (L/min) 2 Oxygen Delivery Method Room Air Weight: 72.938 kg Body Mass Index (BMI) 25.9 Intake & Output: Intake and Output for Last 24 Hours 12/31/22 01/01/23 01/02/23 23:59 23:59 23:59 Intake Total 1000 / 1240 1630 / 1630 Balance 1000 / 1240 1630 / 1630 Lab / Micro Data 01/01/23 13:50 01/02/23 09:35 Labs: Laboratory Results - last 24 hr 01/01/23 21:23: POC Glucose 255 H 01/02/23 06:00: POC Glucose 236 H 01/02/23 09:35: Sodium 136, Potassium 3.7, Chloride 100, Carbon Dioxide 30.0, Anion Gap 6, BUN 6 L, Creatinine 0.72, Estim Creat Clear Calc 86.54, Est GFR (MDRD) Af Amer 109, Est GFR (MDRD) Non-Af 90, BUN/Creatinine Ratio 8.3 L, Glucose 293 H, Calcium 8.7 01/02/23 11:21: POC Glucose 333 H Micro: Microbiology 01/01/23 15:12 Nasal Secretion SARS-CoV-2 & FLU Antigen (Rapid) - Final Physical Exam Narrative alert, oriented x3, no apparent distress and average body habitus Constitutional Narrative: Patient appears older than her stated age General Appearance: cooperative and well developed Orientation / Consciousness: awake, oriented to person, oriented to place and oriented to time HEENT normocephalic and moist oral mucous membranes Eyes PERRL, EOMs intact bilaterally and conjunctivae normal Neck supple, no JVD, thyroid normal and no carotid bruits General: trachea midline Resp normal respiratory effort, no retractions and no use of accessory muscles Resp Narrative: Breath sounds are diminished bilaterally more so on the right Auscultation: Negative for rales, rhonchi or wheezes Cardio regular rate, regular rhythm, S1 normal heart sound, S2 normal heart sound, no murmurs, no rub and no gallops GI normal to inspection, nondistended, normoactive bowel sounds, soft to palpation, non-tender and non-distended Extremity no clubbing, cyanosis or edema Skin no rashes or lesions noted General Skin Exam: no breakdown Neuro oriented x3, CN's II-XII intact bilaterally, moves all extremities, no focal motor deficits and no sensory deficits noted Sensorium / Orientation: awake, alert, oriented to person, oriented to place and oriented to time Speech: speech normal Psych affect normal Assessment & Plan Assessment/Plan (1) Pleural effusion: (2) Chest pain: PLAN: Plan 1. Acute on chronic systolic congestive heart failure-continue IV Lasix at this time, labs will be monitored #2 noncompliance with medical regimen-I do not have a clear picture of why the patient chooses not to take her medications, she does not pay for her medications, she also does not follow-up with her physicians as directed, I contacted [place] and they will make an appointment for the patient to follow-up for ongoing care. #3 cardiomyopathy, probably ischemic in nature-patient will need close follow-up with a customer order clerk after her discharge from the hospital, I impressed upon her that she needs to follow through with this #4 pleurisy-etiology unclear at this point, I do not think the patient has an active infection such as a pneumonia at this time, patient's Vicodin was stopped because it was not helping, she was placed on Oxy IR 15 mg every 6 hours as needed for chest pain. #5 type 2 diabetes-noncompliant with treatment-patient's blood sugars will be monitored, sliding scale insulin will be used as needed, again I am unsure exactly what medications she takes as an outpatient for her type 2 diabetes. #6 peripheral vascular disease-I will maintain the patient on Plavix and aspirin, she is supposed to be on Pletal but it appears that she is not taking it at this time #7 chronic depression-it does not appear that the patient is refilling her antidepressants as directed, I will encourage her to follow-up with counseling as an outpatient #8 coronary artery disease-patient has a history of coronary artery disease, according to medical records in the past at this hospital, patient was noted to have diffuse severe disease of her distal LAD in 2018-at that time it did not appear that she needed intervention. Patient will need close follow-up as an outpatient concerning this. #9 hyperlipidemia-patient will remain on Lipitor, it appears that she has not been taking this as an outpatient Total clinical time spent by myself addressing the patient's medical issues, reviewing all of her data, and collaborating with the patient's care team: 50 minutes Charges/Coding Visit Charges Inpatient E&M: 44487 Subs Hosp L3
[2023-01-02 17:44] LABS: Bedside Glucose 239 mg/dL (74-106)
[2023-01-02] MEDS: Atorvastatin Calcium 80 MG Tablet PO (21:50)
[2023-01-03 00:58] LABS: Bedside Glucose 188 mg/dL (74-106)
[2023-01-03] MEDS: proCHLORPERazine 10 MG/2 ML Vial IV (03:40)
[2023-01-03] MEDS: 0.9% Saline Lock 10 ML Syringe IV ×2 (03:40→09:01)
[2023-01-03 04:30] VITALS: BP 121/77; PULSE 91; RESP 18; TEMP 36.7; O2SAT 96
[2023-01-03 05:29] VITALS: BMI 25.9
[2023-01-03] MEDS: Furosemide 20 MG/2 ML VIAL IV (06:21)
[2023-01-03 06:49] LABS: Bedside Glucose 136 mg/dL (74-106)
[2023-01-03 08:57] VITALS: BP 91/63; PULSE 96; RESP 14; TEMP 36.8; O2SAT 98
[2023-01-03] MEDS: Ondansetron 4 MG/2 ML Vial IV (09:01)
[2023-01-03] MEDS: Aspirin 81 MG TAB.CHEW PO (09:04)
[2023-01-03] MEDS: Clopidogrel Bisulfate 75 MG Tablet PO (09:04)
[2023-01-03] MEDS: Potassium Chloride Oral Tablet 20 MEQ PO (09:04)
[2023-01-03] MEDS: Insulin Glargine-YFGN 100 UNIT/ML Pen 15 UNIT SC (09:05)
[2023-01-03] MEDS: Heparin Injection (Vial) 5,000 UNIT/ML VIAL 5000 UNIT SC (09:05)
[2023-01-03] MEDS: oxyCODONE 5 MG Tablet 15 MG PO (09:13)
--- NOTE | 2023-01-03 10:18 | PCM.DC ---
Discharge Instructions Diet Discharge Diet: 1800 Calorie Control Diet Activity Discharge Activity: Return to Normal Activity Weight Bearing Status: Full weight bearing Follow Up Care Test Results: Test results from this visit will be discussed in further detail at your follow-up appointment, if applicable. Discharge Plan Admission Admit Date/Time: 01/01/23 17:14 Primary Reason for Your Visit: Congestive heart failure, pleurisy Attending Provider: All Rosenberg Primary Care Provider: [facility],Ama Neff Discharge Orders/Prescriptions Prescriptions: New lisinopril 20 mg Tablet 20 mg PO DAILY Qty: 30 0RF oxycodone 5 mg Tablet 10 mg PO Q6H PRN PRN (Reason: Pain Score 6-10) 4 Days Qty: 20 0RF insulin glargine-yfgn 100 unit/mL (3 mL) Insulin Pen 15 unit subcut BID Qty: 0 0RF furosemide [Lasix] 20 mg tablet 20 mg PO DAILY Qty: 30 0RF prochlorperazine maleate [Compazine] 10 mg tablet 10 mg PO Q6H PRN (Reason: nausea and vomiting) Qty: 30 0RF Continued glimepiride 4 mg tablet 1 tablet PO DAILY calcium carbonate 500 mg calcium (1,250 mg) tablet 1 tablet PO DAILY atorvastatin 80 mg tablet 80 mg PO DAILY Qty: 90 3RF clopidogrel [Plavix] 75 mg tablet 75 mg PO DAILY Qty: 30 2RF cholecalciferol (vitamin D3) 25 mcg (1,000 unit) tablet 1,000 unit PO DAILY Patient Comments: TAKE 1 TABLET DAILY omeprazole 40 mg capsule,delayed release(DR/EC) 40 mg PO DAILY Qty: 30 0RF aspirin 81 mg Capsule 81 mg PO DAILY escitalopram oxalate 10 mg Tablet 10 mg PO DAILY Patient Comments: HAS NOT REFILLED SINCE 04/25, BUT STATES SHE TAKES DAILY carvedilol 3.125 mg Tablet 3.125 mg PO BID Qty: 60 0RF nicotine 21 mg/24 hr Patch 24 Hour 21 mg transdermal DAILY Qty: 30 0RF Discontinued desvenlafaxine succinate 25 mg tablet extended release 24 hr 1 ea PO DAILY Patient Comments: TAKE 1 TABLET BY MOUTH DAILY FOR 5 DAYS, THEN INCREASE TO 2 (TWO) TABLETS DAILY trazodone 50 mg tablet 25 - 100 mg PO QHS PRN (Reason: Insomnia) cilostazol 50 mg tablet 50 mg PO BID Qty: 60 2RF alendronate 70 mg tablet 70 mg PO WE Patient Comments: take one tablet weekly HAS ONLY TAKEN 1X SINCE RX'D insulin glargine [Lantus Solostar U-100 Insulin] 100 unit/mL (3 mL) insulin pen 10 units subcut BID dicyclomine 20 mg tablet 20 mg PO BID Qty: 14 0RF lisinopril 10 mg Tablet 10 mg PO DAILY Qty: 30 0RF ondansetron 4 mg tablet,disintegrating 4 mg PO Q8H PRN PRN (Reason: Nausea) Qty: 10 0RF ondansetron [ondansetron] 4 mg tablet,disintegrating 4 mg PO Q8H PRN PRN (Reason: Nausea) Qty: 10 0RF ondansetron [ondansetron] 4 mg tablet,disintegrating 4 mg PO Q8H PRN PRN (Reason: Nausea) Qty: 10 0RF Referrals / Follow Up: Alli Brito MD [Med Staff - Active Staff] - 02/28/23 11:00 am [facility],Ama Neff [Primary Care Provider] - Within 2 Weeks Disposition Disposition (needs filled in before D/C Order can be placed): Home, Self Care
--- NOTE | 2023-01-03 10:26 | DS.PCM_ITS ---
Providers Date of Admission: 01/01/23 Date of Discharge: 01/03/23 Primary Care Physician: Ama [facility] Reason For Visit: CHF, PLEURITIC CHEST PAIN Diagnosis Discharge Diagnosis (1) Pleural effusion: Status: Acute Code(s): J90 - Pleural effusion, not elsewhere classified (2) Chest pain: Status: Acute Code(s): R07.9 - Chest pain, unspecified Plan 1. Acute on chronic systolic congestive heart failure-continue IV Lasix at this time, labs will be monitored #2 noncompliance with medical regimen-I do not have a clear picture of why the patient chooses not to take her medications, she does not pay for her medications, she also does not follow-up with her physicians as directed, I contacted [place] and they will make an appointment for the patient to follow-up for ongoing care. #3 cardiomyopathy, probably ischemic in nature-patient will need close follow-up with a electrical automation engineer after her discharge from the hospital, I impressed upon her that she needs to follow through with this #4 pleurisy-etiology unclear at this point, I do not think the patient has an active infection such as a pneumonia at this time, patient's Vicodin was stopped because it was not helping, she was placed on Oxy IR 15 mg every 6 hours as needed for chest pain. #5 type 2 diabetes-noncompliant with treatment-patient's blood sugars will be monitored, sliding scale insulin will be used as needed, again I am unsure exactly what medications she takes as an outpatient for her type 2 diabetes. #6 peripheral vascular disease-I will maintain the patient on Plavix and aspirin, she is supposed to be on Pletal but it appears that she is not taking it at this time #7 chronic depression-it does not appear that the patient is refilling her antidepressants as directed, I will encourage her to follow-up with counseling as an outpatient #8 coronary artery disease-patient has a history of coronary artery disease, according to medical records in the past at this hospital, patient was noted to have diffuse severe disease of her distal LAD in 2018-at that time it did not appear that she needed intervention. Patient will need close follow-up as an outpatient concerning this. #9 hyperlipidemia-patient will remain on Lipitor, it appears that she has not been taking this as an outpatient Total clinical time spent by myself addressing the patient's medical issues, reviewing all of her data, and collaborating with the patient's care team: 50 minutes Medications at Discharge Home Medications cholecalciferol (vitamin D3) 25 mcg (1,000 unit) tablet 1,000 unit PO DAILY 07/25/22 omeprazole 40 mg capsule,delayed release 40 mg PO DAILY #30 caps 07/25/22 atorvastatin 80 mg tablet 80 mg PO DAILY #90 tabs 08/09/22 calcium carbonate 500 mg calcium (1,250 mg) tablet 1 tablet PO DAILY 08/09/22 clopidogrel 75 mg tablet (Plavix) 75 mg PO DAILY #30 tabs 08/09/22 glimepiride 4 mg tablet 1 tablet PO DAILY 08/09/22 aspirin 81 mg capsule 81 mg PO DAILY 08/10/22 escitalopram oxalate 10 mg tablet 10 mg PO DAILY DEPRESSION 08/30/22 carvedilol 3.125 mg tablet 3.125 mg PO BID #60 tabs 09/02/22 nicotine 21 mg/24 hr daily transdermal patch 21 mg transdermal DAILY #30 ea 09/02/22 furosemide 20 mg tablet (Lasix) 20 mg PO DAILY #30 tabs 01/03/23 insulin glargine-yfgn 100 unit/mL (3 mL) subcutaneous pen 15 unit (0.15 mL) subcut BID #0 mL 01/03/23 lisinopril 20 mg tablet 20 mg PO DAILY #30 tabs 01/03/23 oxycodone 5 mg tablet 10 mg (2 x 5 mg) PO Q6H PRN PRN Pain Score 6-10 4 days #20 tabs 01/03/23 prochlorperazine maleate 10 mg tablet (Compazine) 10 mg PO Q6H PRN nausea and vomiting #30 tabs 01/03/23 Hospital Course Operations None Procedures None Summary of Care Provided Minutes Spent on Discharge: 31 Hospital Course: This 52-year-old white female was seen in the emergency room at [facility] with complaints of chest pain worse on coughing and deep breathing and shortness of breath. Patient has a history of cardiomyopathy with a severely reduced ejection fraction, she is noncompliant with her medications and has not filled her medications in several weeks. Patient stated to this examiner that she does not feel well on her medications and they interact with each other but she could not give an example of any interaction. Work-up in the emergency room revealed the patient to be hypoxic, she was placed on nasal cannula oxygen at a low flow rate, CTA of the chest was performed which showed no evidence of clots, there is evidence of CHF however, patient's beta nitric peptide was elevated. Patient was felt to have acute on chronic systolic CHF with pleurisy, she was admitted to PCU and placed on IV diuresis, her medications were reviewed and adjusted. Appointment was made for her to follow- up with cardiology in February, according to her PCP, she had been set up to see someone at the [facility] but did not return phone calls when they tried to contact her. On 01/03/2023, patient was seen and examined: On examination she appeared in good health and spirits, she does not appear to be in any distress. Vital signs as documented. Skin warm and dry and without overt rashes. Neck without JVD, thyroid appears normal, trachea is midline, neck is supple. Lungs clear, normal air movement was noted. Heart exam notable for regular rhythm, normal sounds and absence of murmurs, rubs or gallops. Abdomen unremarkable and without evidence of organomegaly, masses, or abdominal aortic enlargement, bowel sounds are present in all 4 quadrants, no abdominal tenderness was noted. Extremities nonedematous, no cyanosis was noted, no clubbing was noted. Neuro: Cranial nerves II through XII are grossly intact, no focal motor deficits were noted, sensation to light touch and pinprick is intact, motor exam 5/5 throughout. Psych: Patient is alert and oriented x3, she does not appear anxious or depressed, she does not appear agitated. Patient appears stable for discharge home on 01/03/2023, as an additional note, I did talk with her mother who provides transportation for the patient, I stressed that the patient must follow-up with consulting doctors and her PCP due to her severe heart disease. I spent some time talking with the patient concerning this and try to relay the severity of the patient's heart disease to her and the need for her to follow-up diligently with cardiology. Weight / BMI Weight Weight: 73.1 kg Body Mass Index (BMI) 25.9 ABG / Lab / Microbiology Data 01/01/23 13:50 01/02/23 09:35 Laboratory: Laboratory Results - last 24 hr 01/02/23 11:21: POC Glucose 333 H 01/02/23 17:17: POC Glucose 239 H 01/02/23 21:58: POC Glucose 188 H 01/03/23 06:18: POC Glucose 136 H Microbiology: Microbiology 01/01/23 15:12 Nasal Secretion SARS-CoV-2 & FLU Antigen (Rapid) - Final D/C Instructions Discharge Diet: 1800 Calorie Control Diet Weight Bearing Status: Full weight bearing Meaningful Use Info Meaningful Use Diagnoses (Choose all that apply): CHF CHF SELENE/ARB ordered at discharge?: Yes Documented LVEF (%): 15 Discharge Plan Admission Admit Date/Time: 01/01/23 17:14 Primary Reason for Your Visit: Congestive heart failure, pleurisy Attending Provider: All Rosenberg [facility] Orders/Prescriptions Prescriptions: New lisinopril 20 mg Tablet 20 mg PO DAILY Qty: 30 0RF oxycodone 5 mg Tablet 10 mg PO Q6H PRN PRN (Reason: Pain Score 6-10) 4 Days Qty: 20 0RF insulin glargine-yfgn 100 unit/mL (3 mL) Insulin Pen 15 unit subcut BID Qty: 0 0RF furosemide [Lasix] 20 mg tablet 20 mg PO DAILY Qty: 30 0RF prochlorperazine maleate [Compazine] 10 mg tablet 10 mg PO Q6H PRN (Reason: nausea and vomiting) Qty: 30 0RF Continued glimepiride 4 mg tablet 1 tablet PO DAILY calcium carbonate 500 mg calcium (1,250 mg) tablet 1 tablet PO DAILY atorvastatin 80 mg tablet 80 mg PO DAILY Qty: 90 3RF clopidogrel [Plavix] 75 mg tablet 75 mg PO DAILY Qty: 30 2RF cholecalciferol (vitamin D3) 25 mcg (1,000 unit) tablet 1,000 unit PO DAILY Patient Comments: TAKE 1 TABLET DAILY omeprazole 40 mg capsule,delayed release(DR/EC) 40 mg PO DAILY Qty: 30 0RF aspirin 81 mg Capsule 81 mg PO DAILY escitalopram oxalate 10 mg Tablet 10 mg PO DAILY Patient Comments: HAS NOT REFILLED SINCE 04/25, BUT STATES SHE TAKES DAILY carvedilol 3.125 mg Tablet 3.125 mg PO BID Qty: 60 0RF nicotine 21 mg/24 hr Patch 24 Hour 21 mg transdermal DAILY Qty: 30 0RF Discontinued desvenlafaxine succinate 25 mg tablet extended release 24 hr 1 ea PO DAILY Patient Comments: TAKE 1 TABLET BY MOUTH DAILY FOR 5 DAYS, THEN INCREASE TO 2 (TWO) TABLETS DAILY trazodone 50 mg tablet 25 - 100 mg PO QHS PRN (Reason: Insomnia) cilostazol 50 mg tablet 50 mg PO BID Qty: 60 2RF alendronate 70 mg tablet 70 mg PO WE Patient Comments: take one tablet weekly HAS ONLY TAKEN 1X SINCE RX'D insulin glargine [Lantus Solostar U-100 Insulin] 100 unit/mL (3 mL) insulin pen 10 units subcut BID dicyclomine 20 mg tablet 20 mg PO BID Qty: 14 0RF lisinopril 10 mg Tablet 10 mg PO DAILY Qty: 30 0RF ondansetron 4 mg tablet,disintegrating 4 mg PO Q8H PRN PRN (Reason: Nausea) Qty: 10 0RF ondansetron [ondansetron] 4 mg tablet,disintegrating 4 mg PO Q8H PRN PRN (Reason: Nausea) Qty: 10 0RF ondansetron [ondansetron] 4 mg tablet,disintegrating 4 mg PO Q8H PRN PRN (Reason: Nausea) Qty: 10 0RF Referrals / Follow Up: Alli Brito MD [Med Staff - Active Staff] - 02/28/23 11:00 am [facility],Ama Neff [Primary Care Provider] - Within 2 Weeks Disposition Disposition (needs filled in before D/C Order can be placed): Home, Self Care Charges/Coding Visit Charges Inpatient E&M: 58140 Disch Hosp >30min
--- NOTE | 2023-01-03 11:06 | PHA.DC.MC.R ---
Pharmacy [facility] Pharmacy Service has performed discharge medication reconciliation and counseling for this patient. The patient's discharge medication list was reviewed for discrepancies and discrepancies were resolved. The patient was counseled on the following discharge medications and changes in medications for homegoing were reviewed. The Reason for Use, instructions for use, and potential side effects were reviewed for all new medications. The patient's questions regarding all of their medications were answered. 1. Oxycodone 10 mg PO Q6H PRN pain 2. Prochlorperazine 10 mg PO Q6H PRN nausea/vomiting 3. Furosemide 20 mg PO daily The patient was able to verbally demonstrate an understanding of their discharge medications. Medications at Discharge Home Medications cholecalciferol (vitamin D3) 25 mcg (1,000 unit) tablet 1,000 unit PO DAILY 07/25/22 omeprazole 40 mg capsule,delayed release 40 mg PO DAILY #30 caps 07/25/22 atorvastatin 80 mg tablet 80 mg PO DAILY #90 tabs 08/09/22 calcium carbonate 500 mg calcium (1,250 mg) tablet 1 tablet PO DAILY 08/09/22 clopidogrel 75 mg tablet (Plavix) 75 mg PO DAILY #30 tabs 08/09/22 glimepiride 4 mg tablet 1 tablet PO DAILY 08/09/22 aspirin 81 mg capsule 81 mg PO DAILY 08/10/22 escitalopram oxalate 10 mg tablet 10 mg PO DAILY DEPRESSION 08/30/22 carvedilol 3.125 mg tablet 3.125 mg PO BID #60 tabs 09/02/22 nicotine 21 mg/24 hr daily transdermal patch 21 mg transdermal DAILY #30 ea 09/02/22 furosemide 20 mg tablet (Lasix) 20 mg PO DAILY #30 tabs 01/03/23 insulin glargine-yfgn 100 unit/mL (3 mL) subcutaneous pen 15 unit (0.15 mL) subcut BID #0 mL 01/03/23 lisinopril 20 mg tablet 20 mg PO DAILY #30 tabs 01/03/23 oxycodone 5 mg tablet 10 mg (2 x 5 mg) PO Q6H PRN PRN Pain Score 6-10 4 days #20 tabs 01/03/23 prochlorperazine maleate 10 mg tablet (Compazine) 10 mg PO Q6H PRN nausea and vomiting #30 tabs 01/03/23
[2023-01-03 11:42] VITALS: BP 101/66; PULSE 92; RESP 15; TEMP 36.6; O2SAT 100
[2023-01-03] MEDS: Carvedilol 3.125 MG TABLET PO (11:44)
[2023-01-03 12:04] LABS: Bedside Glucose 154 mg/dL (74-106)
--- NOTE | 2023-01-03 12:38 | CASEMGMT ---
Patient has order for discharge. CHAYITO CM in to discuss needs at discharge. Patient states she has pen needles at home. Patient states he mother may have pill organizer for her as previously discussed with patient to encourage medication compliance. CHAYITO BARKLEY discussed CCN with patient, patient declines at this time. Information card provided should she reconsider in the future. Patient had no further questions or concerns at this time.
== END 2023-01-03 14:56 | disposition home or self-care (01) | DRG 194 ==
LOC: ED 16:22 → PCU 18:03
PROVIDERS: Admitting Provider Internal Medicine; Emergency Provider Emergency Medicine; Visit Provider Internal Medicine
DX: I11.0 Hypertensive heart disease with heart failure (principal); E11.51 Type 2 diabetes mellitus with diabetic peripheral angiopathy without gangrene; I50.23 Acute on chronic systolic (congestive) heart failure; E11.65 Type 2 diabetes mellitus with hyperglycemia; E78.5 Hyperlipidemia, unspecified; I25.10 Atherosclerotic heart disease of native coronary artery without angina pectoris; I25.5 Ischemic cardiomyopathy; R09.1 Pleurisy; F32.9 Major depressive disorder, single episode, unspecified; Z79.02 Long term (current) use of antithrombotics/antiplatelets; Z79.83 Long term (current) use of bisphosphonates; R07.9 Chest pain, unspecified; Z91.148 Patient's other noncompliance with medication regimen for other reason
CPT/HCPCS: 36415; 71275; 80048; 82962; 83880; 84484; 85025; 87428; 93005; 99285; 99406; J7030; Q9967; A4216; J1940; J2405

== ENCOUNTER 2023-02-02 11:20 | Observation (INO) | payer MEDICAID, SELFPAY ==
[2023-02-02] VITALS (12 sets, daily range): BP systolic 113–134; BP diastolic 79–97; PULSE 105–118; RESP 16–18; TEMP 36.1–36.7; O2SAT 88–98; BMI 27.1; BMI 24.7
--- NOTE | 2023-02-02 11:26 | EKG12_ITS ---
Test Reason : CP Blood Pressure : / mmHG Vent. Rate : 109 BPM Atrial Rate : 109 BPM P-R Int : 166 ms QRS Dur : 112 ms QT Int : 356 ms P-R-T Axes : 045 -39 103 degrees QTc Int : 479 ms Sinus tachycardia Left axis deviation Moderate voltage criteria for LVH, may be normal variant ( R in aVL , Brian product ) Septal infarct (cited on or before 30-AUG-2022) T wave abnormality, consider lateral ischemia Abnormal ECG Confirmed by KIERSTEN HERNANDEZ, RICHY ([id number]), editor school photograph RIKY HOANG ([id number]) on 02/22/2023 2:26:09 PM Referred By: SARY/CONNER Confirmed By:SARAH UBRCH MD
--- NOTE | 2023-02-02 12:11 | EDS_ITS ---
HPI History of Present Illness Chief Complaint: Chest Pain Informant: patient Narrative Narrative: Due to history intermittent midsternal chest pains worse with deep breaths. Worsened 6 AM. No history of coronary disease however states congestive heart failure. She states was told me about heart attack 30 years ago. States last month admitted for heart failure or fluid overload there is no thoracentesis performed. She is on a diuretic. She is taking it daily. Denies orthopnea. Denies cough. Denies any significant leg swelling. Hypertension diabetes hyperlipidemia peripheral vascular disease with a right lower leg stent. Reports history of DVT and PE in the past he is unclear if she still on blood thinners of Eliquis. She does take Plavix for her peripheral vascular disease. Records reviewing for admission there is no other anticoagulants. Denies nausea vomiting diarrhea. Prior Similar Symptoms: Yes CVD Risk Factors: Positive for Hypertension, Diabetes, Hypercholesterolemia and Smoking PE Risk Factors: Positive for Prior DVT or PE [facility] Medical History Acute dyspnea Aftercare following surgery of the circulatory system Alcohol abuse CAD (coronary artery disease), [place] coronary artery CHF (congestive heart failure) Depression Diabetes type 2, uncontrolled Essential hypertension GERD (gastroesophageal reflux disease) Hx of fracture of humerus Hyperlipidemia Hypoxemia Ischemic cardiomyopathy Myocardial infarct Osteoporosis Pericardial effusion Pulmonary embolism Smoker Substance abuse Toe amputee Home Medications cholecalciferol (vitamin D3) 25 mcg (1,000 unit) tablet 1,000 unit PO DAILY 07/25/22 [History Last Taken 02/01/23] atorvastatin 80 mg tablet 80 mg PO DAILY #90 tabs 08/09/22 [Rx Last Taken 02/01/23] calcium carbonate 500 mg calcium (1,250 mg) tablet 1 tablet PO DAILY 08/09/22 [History Last Taken 02/01/23] clopidogrel 75 mg tablet (Plavix) 75 mg PO DAILY #30 tabs 08/09/22 [Rx Last Taken 02/01/23] aspirin 81 mg capsule 81 mg PO DAILY 08/10/22 [History Last Taken 02/01/23] escitalopram oxalate 10 mg tablet 10 mg PO DAILY DEPRESSION 08/30/22 [History Last Taken 02/01/23] carvedilol 3.125 mg tablet 3.125 mg PO BID #60 tabs 09/02/22 [Rx Last Taken 02/01/23] nicotine 21 mg/24 hr daily transdermal patch 21 mg transdermal DAILY #30 ea 09/02/22 [Rx Last Taken 02/01/23] furosemide 20 mg tablet (Lasix) 20 mg PO DAILY #30 tabs 01/03/23 [Rx Last Taken 02/01/23] lisinopril 20 mg tablet 20 mg PO DAILY #30 tabs 01/03/23 [Rx Last Taken 02/01/23] glimepiride 4 mg tablet 4 mg PO BID 01/29/23 [History Last Taken 02/01/23] omeprazole 20 mg capsule,delayed release 20 mg PO DAILY 01/29/23 [History Last Taken 02/01/23] dulaglutide 3 mg/0.5 mL subcutaneous pen injector (Trulicity) 3 mg subcut QWEEK 02/02/23 [History Last Taken 02/01/23] Allergy/AdvReac Type Severity Reaction Status Date / Time latex Allergy Hives Verified 01/29/23 16:21 Surgical History History of cholecystectomy Social History household members: spouse and children housing: house Smoking Status: Current every day smoker tobacco type: cigarettes alcohol intake: never substance use type: marijuana what type of physical activity do you participate in: none do you feel safe at home: Yes ROS ROS ED Constitutional Constitutional ED: Denies chills, fever(s) or sweats Eyes Eyes: Denies change in vision ENT ENT ED: Denies dysphagia or sore throat Cardiovascular Cardiovascular: Reports chest pain; Denies leg edema, palpitations or racing heartbeat Respiratory/Chest Respiratory/Chest: Reports dyspnea; Denies cough or dyspnea on exertion Gastrointestinal Gastrointestinal: Denies abdominal pain, diarrhea, nausea or vomiting Genitourinary Genitourinary ED: Denies dysuria, hematuria or urinary frequency Musculoskeletal Musculoskeletal: Denies back pain, extremity pain or neck pain Integumentary Denies rash or wounds Neurologic Neurologic: Denies headache(s), paresthesias or weakness EXAM Physical Exam Const Vital Signs: 02/02/23 11:21 02/02/23 12:56 02/02/23 12:56 Temperature 98.1 F Temperature Source Oral Pulse Rate 118 H 106 H Respiratory Rate 18 17 Blood Pressure 119/81 H 123/84 H Blood Pressure Mean 93 97 Pulse Ox 97 95 Oxygen Delivery Method Room Air Room Air Room Air Positive well nourished and well developed General Appearance ED: well developed and NAD HEENT Reports moist mucous membranes normocephalic and atraumatic Eyes PERRL, EOMs intact bilaterally and conjunctivae normal General Eye ED: Yes normal appearance of both eyes Neck no lymphadenopathy and supple General: Negative for tenderness Chest Wall Chest: Negative for tenderness Resp normal respiratory effort and normal air movement Effort and Inspection: symmetric chest movement; Negative for respiratory distress Cardio regular rhythm and no murmurs Rate: tachycardic Peripheral Pulses: pulses 2+ throughout GI normal to inspection, nondistended, normoactive bowel sounds and non-tender Palpation: Negative for guarding or rebound tenderness present Back/Spine no CVA tenderness and no thoracic nor lumbar tenderness Extremity normal to inspection Extremity Narrative: Minimal lower extremity edema, left foot with amputations of all distal toes. Right foot amputation of the second toe. General Extremety ED: Yes edema; Negative for tenderness General Extremity: edema Neuro oriented x3 and no sensory deficits noted Sensorium / Orientation: awake and alert Skin no rashes or lesions noted and no wounds Heart Score History: Slightly/Non-Suspicious ECG: Normal Age: >45 - <65 years Risk Factors: >/= 3 Risk Factors or History of CAD Troponin: </= Normal Limit Score: 3 MDM MDM MDM Narrative Medical decision making narrative: Interventions / MDM: Differential diagnosis: Atypical chest pain, CHF exacerbation Diagnosis considered but do not suspect: ACS, EKG no acute findings negative cardiac enzymes. Pulmonary embolism however negative CT scan. My EKG interpretation: Sinus rate of 109, no ST changes T wave inversions extreme lateral leads flattening on V4 to V6. Intraventricular delay. Similar EKG from January 01, 2023. Imaging independently reviewed and interpreted by myself: 2 view chest x-ray: Mild vascular congestion. CTA chest: No PE bilateral pleural effusions. Also read by radiology. External documents reviewed: Echocardiogram August 2022 EF of 15%. Test considered but not ordered:N/A ED course: Patient with chest pains EKG sinus tachycardia. Cardiac work-up initiated added BNP for history of heart failure. She had breath sounds down to her lungs that were clear. Low risk Wells criteria for PE, D-dimer obtain for further evaluation. Aspirin ordered, morphine for pain control. 1500: Initial cardiac enzymes negative. White count 7.9 hemoglobin 13.2. Creatinine 0.69. D-dimer is elevated 0.99. Subsequent CT of the chest order, no PE bilateral pleural effusions noted. Reported by nursing, laying down she became hypoxic 88 start 2 L and increased to 4 L. Reported increasing pain, additional morphine was ordered. With her hypoxia pleural effusions noted EF 15% back in August, Lasix 40 mils IV was ordered. We will plan to discuss with hospital service for admission. 1545: I spoke with Dr. Adames for admission to PCU. Re-evaluation: stable Disposition discussed with patient/family/significant other: Patient Case discussed with consulting clinician: Hospitalist This note was generated with [employer] dictation software. It may contain incorrect words, spelling, and punctuation that were not noted in checking the note before signing. Lab Data Attestation: I reviewed the patient's lab results. Labs: Laboratory Results - last 24 hr 02/02/23 02/02/23 11:40 14:27 WBC 7.9 RBC 4.79 Hgb 13.2 Hct 41.8 MCV 87.3 MCH 27.6 MCHC 31.6 L RDW Std Deviation 41.2 RDW Coeff of [place] 13.0 Plt Count 238 MPV 10.6 Immature Gran % (Auto) 0.400 Neut % (Auto) 70.1 H Lymph % (Auto) 18.4 L [place] % (Auto) 6.1 Eos % (Auto) 3.9 Baso % (Auto) 1.1 H Absolute Neuts (auto) 5.5 Absolute Lymphs (auto) 1.45 Nucleated RBC % 0 D-Dimer Quant (PE/DVT) 0.99 H* Sodium 138 Potassium 3.6 Chloride 104 Carbon Dioxide 30.0 Anion Gap 4 L BUN 8 Creatinine 0.69 Estim Creat Clear Calc 90.30 Est GFR (MDRD) Af Amer 116 Est GFR (MDRD) Non-Af 96 BUN/Creatinine Ratio 11.7 Glucose 249 H Calcium 8.9 Troponin I High Sens 24 24 Radiography Diagnostic Testing: Clinical Impression(s) from Imaging Studies Chest X-Ray 02/02/23 12:15 IMPRESSION: Mild degree of vascular congestion and CHF with bibasilar atelectasis. Electronically Signed: Ryan Tejeda MD at 12:38 EDT , Chest CTA 02/02/23 13:51 IMPRESSION: Bilateral pleural effusions with bibasilar atelectasis superimposed on mild degree of CHF. Small pericardial effusion. No evidence of pulmonary embolism. Electronically Signed: Ryan Tejeda MD at 14:27 EDT , Discharge Plan Dx/Rx/DC Orders Clinical Impression: Acute exacerbation of CHF (congestive heart failure), Chest pain, Hypoxia, Bilateral pleural effusion Disposition Disposition: Acute Care Hospital [facility]
--- NOTE | 2023-02-02 12:15 | RAD_ITS ---
STUDY: X-RAY CHEST REASON FOR EXAM: Female, 52 years old. 2 day history of sternal chest pain with shortness of breath and cough. TECHNIQUE: PA and lateral views of the chest. COMPARISON: Comparison is made with prior study August 30, 2022. FINDINGS: EKG electrodes are seen. Mild degree of vascular congestion and bibasilar atelectasis. There is no demonstrated pleural abnormality. There is borderline cardiomegaly. Normal mediastinum and edmundo. Normal visualized pulmonary arteries. Normal visualized aortic arch and descending thoracic aorta. Normal visualized thoracic spine. Normal visualized ribs, clavicles, and shoulders. There is no demonstrated abnormality of the visualized soft tissue structures of the upper abdomen. RAD/Chest PA and Lateral IMPRESSION: Mild degree of vascular congestion and CHF with bibasilar atelectasis. Electronically Signed: Ryan Tejeda MD at 12:38 EDT ,
[2023-02-02 12:24] LABS: Absolute Lymphocyte Count 1.45 X10^3/uL (0.83-4.51); Absolute Neutrophil Count 5.5 X10^3/uL (2.0-7.7); Basophil# 0.09 X10^3/uL; Basophil% 1.1 % (0-1); Eosinophil# 0.31 X10^3/uL; Eosinophils% 3.9 % (0-5); Hematocrit 41.8 % (37-47); Hemoglobin 13.2 g/dL (12.0-15.0); Lymphocyte # 1.45 X10^3/ul (0.83-4.51); Lymphocyte % 18.4 % (19-41); Mean Corp Hgb Conc 31.6 g/dL (32-36); Mean Corpuscular Hgb 27.6 pg (27.0-32.0); Mean Corpuscular Volume 87.3 fL (81-99); Mean Platelet Vol. 10.6 fl (6.2-12.0); Monocyte# 0.48 X10^3/uL; Monocyte% 6.1 % (0-10); NRBC Flagged by Analyzer 0 % (0-5); Neutrophil # 5.53 X10^3/uL (2.7-7.7); Neutrophil % 70.1 % (47-70); Platelet Count 238 K/mm3 (150-450); RBC Distribution Width SD 41.2 fl (35.1-43.9); Red Blood Count 4.79 M/mm3 (4.2-5.4); White Blood Count 7.9 K/mm3 (4.4-11.0)
[2023-02-02 12:33] LABS: D-Dimer Quantitative (DVT/PE) 0.99 FEU/ug/m (0.27-0.49)
[2023-02-02 12:41] LABS: Anion Gap 4 (5-15); BUN 8 mg/dL (7-18); BUN/Creat Ratio 11.7 RATIO (10-20); Calcium,Total 8.9 mg/dL (8.5-10.1); Chloride 104 mmol/L (98-107); Creatinine, Serum 0.69 mg/dL (0.55-1.02); EST Glomerular Filtration Rate 96 mL/min (>60); Est Glom Filt Rate - Afr Amer 116 mL/min (>60); Glucose 249 mg/dL (74-106); Potassium 3.6 mmol/L (3.5-5.1); Sodium Level 138 mmol/L (136-145); Troponin-I HS (w/2H Reflex) 24 pg/mL (3.0-54.0)
[2023-02-02] MEDS: Morphine 4 MG/ML Syringe IV ×2 (12:51→15:16)
[2023-02-02] MEDS: Aspirin 81 MG TAB.CHEW 324 MG PO (12:51)
[2023-02-02] MEDS: Ondansetron 4 MG/2 ML Vial IV ×2 (12:51→20:52)
--- NOTE | 2023-02-02 13:51 | CT_ITS ---
STUDY: CTA CHEST REASON FOR EXAM: Female, 52 years old. Chest pain, elevated dimer RADIATION DOSAGE (If Supplied By Facility): CTDIvol = ( 11.24 ) mGy, DLP = ( 425.36 ) mGycm TECHNIQUE: The examination was performed with the intravenous administration of IV 100mL Isovue-370. Post-processing of the angiographic images was performed, with multiplanar reformation and 3D reconstruction. Individualized dose optimization techniques were used for this CT. COMPARISON: Comparison is made with prior CT of the chest dated January 01, 2023 and chest radiograph done earlier today. FINDINGS: Normal enhancement of the main pulmonary artery and right and left pulmonary arteries. Normal enhancement of the bilateral peripheral pulmonary arteries. There is no demonstrated pulmonary embolism. Normal thoracic aorta and visualized great vessels. There is no demonstrated aortic dissection. There are calcifications of the coronary arteries. Small pericardial effusion. There are visualized mediastinal lymph nodes, which are within normal size limits, and with normal morphology. Mildly enlarged left hilar lymph nodes. Normal visualized trachea and bronchi. The lungs are well expanded. There are small bilateral pleural effusions with bibasilar atelectasis and/or infiltration. Increased interstitial markings. A mild degree of CHF should be ruled. Normal chest wall structures. There are degenerative changes of thoracic spine. Stable cyst in the upper pole of the left kidney. CT/CTA Chest W/WO Contrast IMPRESSION: Bilateral pleural effusions with bibasilar atelectasis superimposed on mild degree of CHF. Small pericardial effusion. No evidence of pulmonary embolism. Electronically Signed: Ryan Tejeda MD at 14:27 EDT ,
[2023-02-02 14:18] LABS: Reflex Troponin-HS? (from REC) Y
--- NOTE | 2023-02-02 15:22 | ED.RN ---
PT PULSE OX 88 PERCNT ON ROOM AIR. PT PLACED ON 3 LITERS O2. PT REBOUNDED TO 97. DR JOHNSON
[2023-02-02 15:23] LABS: Troponin-I HS 24 pg/mL (3.0-54.0)
[2023-02-02] MEDS: Furosemide 40 MG/4 ML Vial IV (15:51)
--- NOTE | 2023-02-02 16:27 | PCM.HP.STD ---
HPI - General General Date of Admission: 02/02/23 HPI Narrative TRENTON DENTON, is a 52 F who presents with chest pain similar to the chest pain she had previously though slightly more intense. Troponins were unremarkable. CT of the chest was normal. The chest pain started intermittently over the last couple of days with no significant association to activity. She does also have a dry cough and has palpable chest pain as well though she is says that it is slightly different than the chest pain that brought her into the hospital. EKG is unremarkable. She did have an echo back in August with an EF of 15% as well as some diastolic dysfunction. 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 She comes in today because she is also been having some shortness of breath, she did drop her oxygen down to 88% and is managing on 2 L nasal cannula. She did receive a dose of Lasix in the ER. [facility] Medical History Acute dyspnea Aftercare following surgery of the circulatory system Alcohol abuse CAD (coronary artery disease), [place] coronary artery CHF (congestive heart failure) Depression Diabetes type 2, uncontrolled Essential hypertension GERD (gastroesophageal reflux disease) Hx of fracture of humerus Hyperlipidemia Hypoxemia Ischemic cardiomyopathy Myocardial infarct Osteoporosis Pericardial effusion Pulmonary embolism Smoker Substance abuse Toe amputee Home Medications cholecalciferol (vitamin D3) 25 mcg (1,000 unit) tablet 1,000 unit PO DAILY 07/25/22 [History Last Taken 02/01/23] atorvastatin 80 mg tablet 80 mg PO DAILY #90 tabs 08/09/22 [Rx Last Taken 02/01/23] calcium carbonate 500 mg calcium (1,250 mg) tablet 1 tablet PO DAILY 08/09/22 [History Last Taken 02/01/23] clopidogrel 75 mg tablet (Plavix) 75 mg PO DAILY #30 tabs 08/09/22 [Rx Last Taken 02/01/23] aspirin 81 mg capsule 81 mg PO DAILY 08/10/22 [History Last Taken 02/01/23] escitalopram oxalate 10 mg tablet 10 mg PO DAILY DEPRESSION 08/30/22 [History Last Taken 02/01/23] carvedilol 3.125 mg tablet 3.125 mg PO BID #60 tabs 09/02/22 [Rx Last Taken 02/01/23] nicotine 21 mg/24 hr daily transdermal patch 21 mg transdermal DAILY #30 ea 09/02/22 [Rx Last Taken 02/01/23] furosemide 20 mg tablet (Lasix) 20 mg PO DAILY #30 tabs 01/03/23 [Rx Last Taken 02/01/23] lisinopril 20 mg tablet 20 mg PO DAILY #30 tabs 01/03/23 [Rx Last Taken 02/01/23] glimepiride 4 mg tablet 4 mg PO BID 01/29/23 [History Last Taken 02/01/23] omeprazole 20 mg capsule,delayed release 20 mg PO DAILY 01/29/23 [History Last Taken 02/01/23] dulaglutide 3 mg/0.5 mL subcutaneous pen injector (Trulicity) 3 mg subcut QWEEK 02/02/23 [History Last Taken 02/01/23] Allergy/AdvReac Type Severity Reaction Status Date / Time latex Allergy Hives Verified 01/29/23 16:21 Family History (Updated 02/02/23 @ 17:[address] Brandon Adames MD) Other Heart disease Surgical History History of cholecystectomy Social History household members: spouse and children housing: house Smoking Status: Current every day smoker tobacco type: cigarettes alcohol intake: never substance use type: marijuana what type of physical activity do you participate in: none do you feel safe at home: Yes ROS Constitutional Constitutional: Denies chills, fatigue, fever(s) or malaise Eyes Eyes: Denies blurry vision ENT HEENT: Denies headache(s) or nasal discharge Cardiovascular Cardiovascular: Reports chest pain and orthopnea; Denies dyspnea on exertion or syncope Respiratory/Chest Respiratory/Chest: Reports cough, shortness of breath at rest and shortness of breath with exertion Gastrointestinal Gastrointestinal: Denies constipation, diarrhea, nausea or vomiting Genitourinary Genitourinary: Denies dysuria Neurologic Neurologic: Denies focal weakness, numbness or tremor(s) Psychiatric Psychiatric: Denies anxiety or depression Vital Signs Vital Signs Vital Signs: 02/02/23 11:21 02/02/23 12:56 02/02/23 12:56 Temperature 98.1 F Temperature Source Oral Pulse Rate 118 H 106 H Respiratory Rate 18 17 Blood Pressure 119/81 H 123/84 H Blood Pressure Mean 93 97 Pulse Ox 97 95 Oxygen Delivery Method Room Air Room Air Room Air Oxygen Flow Rate (L/min) 02/02/23 15:50 02/02/23 16:00 02/02/23 15:30 Temperature 97 F L Temperature Source Temporal Pulse Rate 115 H 116 H Respiratory Rate 18 18 Blood Pressure 134/97 H 134/97 H Blood Pressure Mean 109 109 Pulse Ox 95 95 88 Oxygen Delivery Method Nasal Cannula Nasal Cannula Room Air Oxygen Flow Rate (L/min) 2 2 02/02/23 16:01 Temperature Temperature Source Pulse Rate Respiratory Rate 18 Blood Pressure Blood Pressure Mean Pulse Ox Oxygen Delivery Method Oxygen Flow Rate (L/min) Weight Weight: 167 lb 15.876 oz Body Mass Index (BMI) 27.1 Physical Exam Narrative General: Alert, Oriented x3, Cooperative, No apparent distress HEENT: Atraumatic, PERRLA, EOMI, Normocephalic Oral: Moist Mucosa Neck: Supple, No JVD Lungs: Diminished, Normal air movement, No rhonchi, No wheeze, rales Cardiovascular: Regular rate, Regular Rhythm, Normal S1, Normal S2, No murmurs, pain to palpation Abdomen: Soft, Non Tender, Non-Distended, No Hepato-splenomegaly Extremities: No edema, Capillary Refill Less than 3 Seconds Skin: No rashes, No breakdown Musculoskeletal: No Tenderness to Palpation of Joints or Extremities Neurological: Cranial nerves II-XII grossly intact, Motor Exam 5/5 strength throughout, Sensory exam intact to light touch and pain Psych/Mental Status: Normal Affect, Appropriate Results Lab / Micro Data 02/02/23 11:40 02/02/23 11:40 Labs: Laboratory Results - last 24 hr 02/02/23 11:40: WBC 7.9, RBC 4.79, Hgb 13.2, Hct 41.8, MCV 87.3, MCH 27.6, MCHC 31.6 L, RDW Std Deviation 41.2, RDW Coeff of [place] 13.0, Plt Count 238, MPV 10.6, Immature Gran % (Auto) 0.400, Neut % (Auto) 70.1 H, Lymph % (Auto) 18.4 L, [place] % (Auto) 6.1, Eos % (Auto) 3.9, Baso % (Auto) 1.1 H, Absolute Neuts (auto) 5.5, Absolute Lymphs (auto) 1.45, Nucleated RBC % 0, D-Dimer Quant (PE/DVT) 0.99 H*, Sodium 138, Potassium 3.6, Chloride 104, Carbon Dioxide 30.0, Anion Gap 4 L, BUN 8, Creatinine 0.69, Estim Creat Clear Calc 90.30, Est GFR (MDRD) Af Amer 116, Est GFR (MDRD) Non-Af 96, BUN/Creatinine Ratio 11.7, Glucose 249 H, Calcium 8.9, Troponin I High Sens 24 02/02/23 14:27: Troponin I High Sens 24 Radiology Impression Chest X-Ray 02/02/23 12:15 IMPRESSION: Mild degree of vascular congestion and CHF with bibasilar atelectasis. Electronically Signed: Ryan Tejeda MD at 12:38 EDT , Chest CTA 02/02/23 13:51 IMPRESSION: Bilateral pleural effusions with bibasilar atelectasis superimposed on mild degree of CHF. Small pericardial effusion. No evidence of pulmonary embolism. Electronically Signed: Ryan Tejeda MD at 14:27 EDT , Assessment & Plan Assessment/Plan (1) Acute exacerbation of CHF (congestive heart failure): PLAN: Plan 1. Acute on chronic systolic CHF/HTN/HLD/tobacco abuse/PAD ? She is borderline hypoxic down to 88% with activity ? Continue with oxygen and Lasix ? We will resume her home medications, will increase her Coreg to 6.25 ? We will adjust medications and monitor blood pressures ? Continue with Plavix ? Continue with nicotine patch ? She did have an angioplasty and stent of the right superficial femoral artery 08/10/2022 2. DM2 ? We will hold her home medication ? Continue with sliding scale insulin, Accu-Cheks ACHS ? We will monitor and make adjustments as necessary 3. GERD ? Stable ? Continue with PPI 4. Anxiety/depression ? Stable ? Continue with home medications DVT: Heparin 76 minutes was spent on direct patient care, including documentation as well as chart review and collaboration with colleagues Charges/Coding Visit Charges Inpatient E&M: 74380 Init Hosp L3
--- NOTE | 2023-02-02 20:35 | EKG12_ITS ---
Test Reason : CP Blood Pressure : / mmHG Vent. Rate : 108 BPM Atrial Rate : 108 BPM P-R Int : 170 ms QRS Dur : 106 ms QT Int : 354 ms P-R-T Axes : 041 -37 115 degrees QTc Int : 474 ms Sinus tachycardia Left axis deviation Minimal voltage criteria for LVH, may be normal variant ( Brian product ) Septal infarct , age undetermined T wave abnormality, consider lateral ischemia Abnormal ECG When compared with ECG of 02-FEB-2023 11:26, MANUAL COMPARISON REQUIRED, DATA IS UNCONFIRMED Confirmed by TIP HERNANDEZ, LORETA ([id number]), senior editor RIKY HOANG ([id number]) on 03/19/2023 12:49:44 PM Referred By: Confirmed By:LORETA WHELAN MD
[2023-02-02] MEDS: Nitroglycerin (INPATIENT USE) 0.4 MG TAB.SUBL SL ×3 (21:19→21:47)
[2023-02-02] MEDS: Insulin Lispro 100 UNIT/ML INSULN.PEN SC (21:41)
[2023-02-02 22:09] LABS: Troponin-I HS 24 pg/mL (3.0-54.0)
[2023-02-02] MEDS: Morphine 2 MG/ML Syringe IV (22:38)
[2023-02-02] MEDS: 0.9% Saline Lock 10 ML Syringe IV (22:39)
[2023-02-02] MEDS: Heparin Injection (Vial) 5,000 UNIT/ML VIAL 5000 UNIT SC (22:43)
[2023-02-02] MEDS: Carvedilol 6.25 MG Tablet PO (22:43)
[2023-02-02 23:55] LABS: Bedside Glucose 191 mg/dL (74-106)
[2023-02-03 01:39] LABS: Troponin-I HS 24 pg/mL (3.0-54.0)
[2023-02-03 03:27] LABS: Absolute Lymphocyte Count 1.68 X10^3/uL (0.83-4.51); Absolute Neutrophil Count 5.9 X10^3/uL (2.0-7.7); Basophil# 0.08 X10^3/uL; Eosinophil# 0.27 X10^3/uL; Eosinophils% 3.2 % (0-5); Hematocrit 41.1 % (37-47); Hemoglobin 13.1 g/dL (12.0-15.0); Lymphocyte # 1.68 X10^3/ul (0.83-4.51); Lymphocyte % 20.1 % (19-41); Mean Corp Hgb Conc 31.9 g/dL (32-36); Mean Corpuscular Hgb 27.4 pg (27.0-32.0); Mean Platelet Vol. 9.9 fl (6.2-12.0); Monocyte# 0.45 X10^3/uL; Monocyte% 5.4 % (0-10); NRBC Flagged by Analyzer 0 % (0-5); Neutrophil # 5.85 X10^3/uL (2.7-7.7); Neutrophil % 70.1 % (47-70); Platelet Count 226 K/mm3 (150-450); RBC Distribution Width CV 13.1 % (11.6-14.6); RBC Distribution Width SD 40.4 fl (35.1-43.9); Red Blood Count 4.78 M/mm3 (4.2-5.4); White Blood Count 8.4 K/mm3 (4.4-11.0)
[2023-02-03 03:49] LABS: Anion Gap 5 (5-15); BUN 7 mg/dL (7-18); BUN/Creat Ratio 12.6 RATIO (10-20); Calcium,Total 8.3 mg/dL (8.5-10.1); Chloride 106 mmol/L (98-107); Creatinine, Serum 0.56 mg/dL (0.55-1.02); EST Glomerular Filtration Rate 122 mL/min (>60); Est Glom Filt Rate - Afr Amer 148 mL/min (>60); Estimated Creatinine Clearance 115.58 ml/min; Glucose 177 mg/dL (74-106); Potassium 3.6 mmol/L (3.5-5.1); Sodium Level 138 mmol/L (136-145)
[2023-02-03 03:50] LABS: Troponin-I HS 26 pg/mL (3.0-54.0)
[2023-02-03 03:59] VITALS: BMI 24.5
[2023-02-03 04:16] VITALS: BP 110/72; PULSE 89; RESP 16; TEMP 36.7; O2SAT 95
[2023-02-03] MEDS: Ondansetron 4 MG/2 ML Vial IV ×2 (04:19→10:34)
[2023-02-03] MEDS: 0.9% Saline Lock 10 ML Syringe IV ×2 (04:19→10:35)
[2023-02-03] MEDS: Morphine 2 MG/ML Syringe IV ×2 (04:20→10:34)
[2023-02-03] MEDS: Insulin Lispro 100 UNIT/ML INSULN.PEN SC ×3 (06:39→16:34)
[2023-02-03 07:03] LABS: Bedside Glucose 185 mg/dL (74-106)
[2023-02-03 10:30] VITALS: BP 109/73; PULSE 95; RESP 18; TEMP 36.7; O2SAT 99
[2023-02-03] MEDS: Escitalopram Oxalate 10 MG Tablet PO (10:34)
[2023-02-03] MEDS: Furosemide 40 MG/4 ML Vial IV (10:34)
[2023-02-03] MEDS: Atorvastatin Calcium 80 MG Tablet PO (10:34)
[2023-02-03] MEDS: Aspirin 81 MG TAB.CHEW PO (10:34)
[2023-02-03] MEDS: Lisinopril 20 MG Tablet PO (10:34)
[2023-02-03] MEDS: Clopidogrel Bisulfate 75 MG Tablet PO (10:34)
[2023-02-03] MEDS: Pantoprazole Sodium 20 MG Tablet PO (10:34)
[2023-02-03] MEDS: Carvedilol 6.25 MG Tablet PO (10:34)
[2023-02-03] MEDS: Potassium Chloride Oral Tablet 20 MEQ 40 MEQ PO (11:42)
[2023-02-03] MEDS: metOLazone 5 MG Tablet PO (11:42)
[2023-02-03 12:04] LABS: Bedside Glucose 242 mg/dL (74-106)
[2023-02-03 14:58] VITALS: BP 99/71; PULSE 92; RESP 18; TEMP 36.1; O2SAT 98
[2023-02-03 15:00] VITALS: O2SAT 98
[2023-02-03 15:12] VITALS: O2SAT 97; O2SAT 98
--- NOTE | 2023-02-03 15:30 | DCINST_ITS ---
Discharge Instructions Diet Discharge Diet: 1800 Calorie Control Diet Activity Weight Bearing Status: Full weight bearing Follow Up Care Test Results: Test results from this visit will be discussed in further detail at your follow- up appointment, if applicable. Discharge Plan Admission Admit Date/Time: 02/02/23 16:24 Primary Reason for Your Visit: CHF Attending Provider: All Rosenberg [facility] Providers: Brandon Adames Discharge Orders/Prescriptions Prescriptions: New atorvastatin 80 mg Tablet 80 mg PO DAILY Qty: 30 0RF carvedilol 6.25 mg Tablet 6.25 mg PO BIDCM Qty: 60 0RF lisinopril 20 mg Tablet 20 mg PO DAILY Qty: 30 0RF clopidogrel 75 mg Tablet 75 mg PO DAILY Qty: 30 0RF escitalopram oxalate 10 mg Tablet 10 mg PO DAILY Qty: 30 0RF furosemide [Lasix] 40 mg tablet 40 mg PO DAILY Qty: 30 0RF lisinopril 20 mg tablet 20 mg PO DAILY Qty: 30 0RF atorvastatin 80 mg tablet 80 mg PO DAILY Qty: 30 0RF glimepiride 4 mg tablet 4 mg PO BID Qty: 60 0RF clopidogrel [Plavix] 75 mg tablet 75 mg PO DAILY Qty: 30 0RF omeprazole 40 mg capsule,delayed release(DR/EC) 40 mg PO DAILY Qty: 30 0RF escitalopram oxalate [Lexapro] 10 mg tablet 10 mg PO DAILY Qty: 30 0RF carvedilol 6.25 mg tablet 6.25 mg PO BID Qty: 60 0RF Rx Instructions: must administer with a meal/food Continued calcium carbonate 500 mg calcium (1,250 mg) tablet 1 tablet PO DAILY cholecalciferol (vitamin D3) 25 mcg (1,000 unit) tablet 1,000 unit PO DAILY Patient Comments: TAKE 1 TABLET DAILY aspirin 81 mg Capsule 81 mg PO DAILY nicotine 21 mg/24 hr Patch 24 Hour 21 mg transdermal DAILY Qty: 30 0RF Trulicity 3 mg/0.5 mL pen injector 3 mg SUBCUT QWEEK Patient Comments: INJECT 3 (THREE) MG SUBCUTANEOUSLY EVERY WEEK glimepiride 4 mg tablet 4 mg PO BID Qty: 60 0RF omeprazole 20 mg capsule,delayed release(DR/EC) 20 mg PO DAILY Qty: 30 0RF Patient Comments: TAKE 1 CAPSULE BY MOUTH DAILY Changed furosemide [Lasix] 20 mg tablet 40 mg PO DAILY Qty: 60 0RF Discontinued atorvastatin 80 mg tablet 80 mg PO DAILY Qty: 90 3RF clopidogrel [Plavix] 75 mg tablet 75 mg PO DAILY Qty: 30 2RF escitalopram oxalate 10 mg Tablet 10 mg PO DAILY Patient Comments: HAS NOT REFILLED SINCE 04/25, BUT STATES SHE TAKES DAILY carvedilol 3.125 mg Tablet 3.125 mg PO BID Qty: 60 0RF lisinopril 20 mg Tablet 20 mg PO DAILY Qty: 30 0RF Referrals / Follow Up: [facility],Ama Neff [Primary Care Provider] - Within 2 Weeks Disposition Disposition (needs filled in before D/C Order can be placed): Home, Self Care
[2023-02-03 17:07] LABS: Bedside Glucose 247 mg/dL (74-106)
[2023-02-06 19:26] LABS: BNP,B-Type NATRIURETIC PEPTIDE 498.2 pg/mL (0-100)
--- NOTE | 2023-02-06 19:30 | PCM.DC.SUM ---
Providers Date of Admission: 02/02/23 Date of Discharge: 02/03/23 Primary Care Physician: [facility] Reason For Visit: CHF Diagnosis Discharge Diagnosis (1) Acute exacerbation of CHF (congestive heart failure): Status: Chronic Code(s): I50.9 - Heart failure, unspecified Plan #1. Acute on chronic systolic congestive heart failure #2 type 2 diabetes #3 noncompliance with medical regimen #4 chronic anxiety/depression #5 GERD #6 hypoxia secondary to acute on chronic systolic congestive heart failure Medications at Discharge Home Medications cholecalciferol (vitamin D3) 25 mcg (1,000 unit) tablet 1,000 unit PO DAILY vitamin 07/25/22 calcium carbonate 500 mg calcium (1,250 mg) tablet 1 tablet PO DAILY supplement 08/09/22 aspirin 81 mg capsule 81 mg PO DAILY heart health 08/10/22 nicotine 21 mg/24 hr daily transdermal patch 21 mg transdermal DAILY stop smoking #30 ea 09/02/22 dulaglutide 3 mg/0.5 mL subcutaneous pen injector (Trulicity) 3 mg subcut QWEEK diabetes 02/02/23 atorvastatin 80 mg tablet 80 mg PO DAILY #30 tabs 02/03/23 atorvastatin 80 mg tablet 80 mg PO DAILY #30 tabs 02/03/23 carvedilol 6.25 mg tablet 6.25 mg PO BID #60 tabs 02/03/23 carvedilol 6.25 mg tablet 6.25 mg PO BIDCM #60 tabs 02/03/23 clopidogrel 75 mg tablet 75 mg PO DAILY #30 tabs 02/03/23 clopidogrel 75 mg tablet (Plavix) 75 mg PO DAILY #30 tabs 02/03/23 escitalopram oxalate 10 mg tablet 10 mg PO DAILY #30 tabs 02/03/23 escitalopram oxalate 10 mg tablet (Lexapro) 10 mg PO DAILY #30 tabs 02/03/23 furosemide 20 mg tablet (Lasix) 40 mg (2 x 20 mg) PO DAILY diuretic #60 tabs 02/03/23 furosemide 40 mg tablet (Lasix) 40 mg PO DAILY #30 tabs 02/03/23 glimepiride 4 mg tablet 4 mg PO BID #60 tabs 02/03/23 glimepiride 4 mg tablet 4 mg PO BID diabetes #60 tabs 02/03/23 lisinopril 20 mg tablet 20 mg PO DAILY #30 tabs 02/03/23 lisinopril 20 mg tablet 20 mg PO DAILY #30 tabs 02/03/23 omeprazole 20 mg capsule,delayed release 20 mg PO DAILY reflux #30 caps 02/03/23 omeprazole 40 mg capsule,delayed release 40 mg PO DAILY #30 caps 02/03/23 Hospital Course Operations None Procedures None Summary of Care Provided Minutes Spent on Discharge: 30 Hospital Course: This 52-year-old white female presented to the emergency room with chest discomfort and some shortness of breath, she had been hospitalized recently here at [facility] for congestive heart failure and had been found to have a reduced ejection fraction. Patient has a history of being noncompliant with her medications and did not follow-up when she was discharged in January 2023 for an outpatient appointment at the [facility] [address]. Work-up in the emergency room included a CTA of the chest which showed mild degree of CHF and bilateral pleural effusions, regular chest x-ray showed a mild degree of vascular congestion/CHF with bibasilar atelectasis. Patient was placed in observation status on PCU and placed on IV Lasix, her home medications were dispensed, the following day she was evaluated and she did not require supplemental oxygen, I spent some time talking with her about the need to follow-up regarding her medical care when she is discharged from the hospital. On 02/03/2023, patient was seen and examined: On examination she appeared in good health and spirits, she does not appear to be in any distress. Vital signs as documented. Skin warm and dry and without overt rashes. Neck without JVD, thyroid appears normal, trachea is midline, neck is supple. Lungs clear, normal air movement was noted. Heart exam notable for regular rhythm, normal sounds and absence of murmurs, rubs or gallops. Abdomen unremarkable and without evidence of organomegaly, masses, or abdominal aortic enlargement, bowel sounds are present in all 4 quadrants, no abdominal tenderness was noted. Extremities nonedematous, no cyanosis was noted, no clubbing was noted. Neuro: Cranial nerves II through XII are grossly intact, no focal motor deficits were noted, sensation to light touch and pinprick is intact, motor exam 5/5 throughout. Psych: Patient is alert and oriented x3, she does not appear anxious or depressed, she does not appear agitated. She was discharged home in stable condition on 02/03/2023. Weight / BMI Weight Weight: 71.1 kg Body Mass Index (BMI) 24.5 ABG / Lab / Microbiology Data 02/03/23 03:20 02/03/23 03:20 Laboratory: Laboratory Results - last 24 hr 02/02/23 11:40: B-Natriuretic Peptide 498.2 H D/C Instructions Discharge Diet: 1800 Calorie Control Diet Weight Bearing Status: Full weight bearing Meaningful Use Info Meaningful Use Diagnoses (Choose all that apply): CHF CHF SELENE/ARB ordered at discharge?: Yes Documented LVEF (%): 15 Discharge Plan Admission Admit Date/Time: 02/02/23 16:24 Primary Reason for Your Visit: CHF Attending Provider: All Rosenberg [facility] Providers: Brandon Adames Discharge Orders/Prescriptions Prescriptions: New atorvastatin 80 mg Tablet 80 mg PO DAILY Qty: 30 0RF carvedilol 6.25 mg Tablet 6.25 mg PO BIDCM Qty: 60 0RF lisinopril 20 mg Tablet 20 mg PO DAILY Qty: 30 0RF clopidogrel 75 mg Tablet 75 mg PO DAILY Qty: 30 0RF escitalopram oxalate 10 mg Tablet 10 mg PO DAILY Qty: 30 0RF furosemide [Lasix] 40 mg tablet 40 mg PO DAILY Qty: 30 0RF lisinopril 20 mg tablet 20 mg PO DAILY Qty: 30 0RF atorvastatin 80 mg tablet 80 mg PO DAILY Qty: 30 0RF glimepiride 4 mg tablet 4 mg PO BID Qty: 60 0RF clopidogrel [Plavix] 75 mg tablet 75 mg PO DAILY Qty: 30 0RF omeprazole 40 mg capsule,delayed release(DR/EC) 40 mg PO DAILY Qty: 30 0RF escitalopram oxalate [Lexapro] 10 mg tablet 10 mg PO DAILY Qty: 30 0RF carvedilol 6.25 mg tablet 6.25 mg PO BID Qty: 60 0RF Rx Instructions: must administer with a meal/food Continued calcium carbonate 500 mg calcium (1,250 mg) tablet 1 tablet PO DAILY cholecalciferol (vitamin D3) 25 mcg (1,000 unit) tablet 1,000 unit PO DAILY Patient Comments: TAKE 1 TABLET DAILY aspirin 81 mg Capsule 81 mg PO DAILY nicotine 21 mg/24 hr Patch 24 Hour 21 mg transdermal DAILY Qty: 30 0RF Trulicity 3 mg/0.5 mL pen injector 3 mg SUBCUT QWEEK Patient Comments: INJECT 3 (THREE) MG SUBCUTANEOUSLY EVERY WEEK glimepiride 4 mg tablet 4 mg PO BID Qty: 60 0RF omeprazole 20 mg capsule,delayed release(DR/EC) 20 mg PO DAILY Qty: 30 0RF Patient Comments: TAKE 1 CAPSULE BY MOUTH DAILY Changed furosemide [Lasix] 20 mg tablet 40 mg PO DAILY Qty: 60 0RF Discontinued atorvastatin 80 mg tablet 80 mg PO DAILY Qty: 90 3RF clopidogrel [Plavix] 75 mg tablet 75 mg PO DAILY Qty: 30 2RF escitalopram oxalate 10 mg Tablet 10 mg PO DAILY Patient Comments: HAS NOT REFILLED SINCE 04/25, BUT STATES SHE TAKES DAILY carvedilol 3.125 mg Tablet 3.125 mg PO BID Qty: 60 0RF lisinopril 20 mg Tablet 20 mg PO DAILY Qty: 30 0RF Referrals / Follow Up: [facility],Ama Neff [Primary Care Provider] - Within 2 Weeks Disposition Disposition (needs filled in before D/C Order can be placed): Home, Self Care Charges/Coding Visit Charges Inpatient E&M: 77706 Disch Hosp
== END 2023-02-03 17:40 | disposition home or self-care (01) ==
LOC: ED 15:42 → PCU 16:34
PROVIDERS: Hospitalist; Admitting Provider Family Medicine; Emergency Provider Emergency Medicine; Visit Provider Internal Medicine
DX: I11.0 Hypertensive heart disease with heart failure (principal); E11.51 Type 2 diabetes mellitus with diabetic peripheral angiopathy without gangrene; I50.23 Acute on chronic systolic (congestive) heart failure; E78.00 Pure hypercholesterolemia, unspecified; Z79.84 Long term (current) use of oral hypoglycemic drugs; I25.5 Ischemic cardiomyopathy; Z79.82 Long term (current) use of aspirin; Z79.02 Long term (current) use of antithrombotics/antiplatelets; I25.10 Atherosclerotic heart disease of native coronary artery without angina pectoris; F32.A Depression, unspecified; F41.9 Anxiety disorder, unspecified; Z79.899 Other long term (current) drug therapy; I25.2 Old myocardial infarction; Z86.718 Personal history of other venous thrombosis and embolism; K21.9 Gastro-esophageal reflux disease without esophagitis; F17.210 Nicotine dependence, cigarettes, uncomplicated
CPT/HCPCS: 36415; 71046; 71275; 80048; 82962; 83880; 84484; 85025; 85379; 93005; 97802; 99285; Q9967; A4216; J1940; J2405

== ENCOUNTER → 2023-04-05 | Outpatient (CLI) | payer MEDICAID, SELFPAY | END | disposition home or self-care (01) | LOC: SL 21:44 | PROVIDERS: Referring Provider Nurse Practitioner Family; Visit Provider Nurse Practitioner Family | DX: G47.10 Hypersomnia, unspecified (principal) | CPT/HCPCS: 95810 ==

== ENCOUNTER → 2023-04-18 | Outpatient (CLI) | payer MEDICAID, SELFPAY ==
[2023-04-18 15:33] LABS: ALB/GLOB Ratio 0.7 RATIO (0.9-2.4); AST(SGOT) 12 U/L (15-37); Alanine Aminotransfer ALT/SGPT 13 U/L (13-56); Alkaline Phosphatase 104 U/L (45-117); Amylase 45 U/L (25-115); Anion Gap 4 (5-15); BUN 11 mg/dL (7-18); BUN/Creat Ratio 12.8 RATIO (10-20); Chloride 103 mmol/L (98-107); Creatinine, Serum 0.86 mg/dL (0.55-1.02); EST Glomerular Filtration Rate 74 mL/min (>60); Est Glom Filt Rate - Afr Amer 90 mL/min (>60); Globulin 4.5 g/dL (2.2-4.2); Glucose 279 mg/dL (74-106); Lipase 27 U/L (13-75); Potassium 4.1 mmol/L (3.5-5.1); Protein, Total 7.5 g/dL (6.4-8.2); Sodium Level 137 mmol/L (136-145)
== END | disposition home or self-care (01) ==
LOC: PAVLAB 14:55
PROVIDERS: Referring Provider Surgery; Visit Provider Surgery
DX: R10.13 Epigastric pain (principal)
CPT/HCPCS: 36415; 80053; 82150; 83690

== ENCOUNTER 2023-05-03 13:33 | Inpatient (IN) | payer MEDICAID, SELFPAY ==
[2023-05-03] VITALS (8 sets, daily range): BP systolic 122–165; BP diastolic 80–101; PULSE 84–110; RESP 16–25; TEMP 36.2–36.7; O2SAT 88–99; BMI 26.6; BMI 26.3
--- NOTE | 2023-05-03 13:56 | EKG12_ITS ---
Test Reason : Blood Pressure : / mmHG Vent. Rate : 097 BPM Atrial Rate : 097 BPM P-R Int : 174 ms QRS Dur : 126 ms QT Int : 382 ms P-R-T Axes : 043 -35 100 degrees QTc Int : 485 ms Normal sinus rhythm Left axis deviation Non-specific intra-ventricular conduction block Minimal voltage criteria for LVH, may be normal variant ( Brian product ) Cannot rule out Septal infarct (cited on or before 30-AUG-2022) T wave abnormality, consider lateral ischemia Abnormal ECG Confirmed by TIP HERNANDEZ, LORETA ([id number]), associate editor RIKY HOANG ([id number]) on 05/04/2023 9:34:06 AM Referred By: DRAKE Confirmed By:LORETA WHELAN MD
--- NOTE | 2023-05-03 13:56 | RAD_ITS ---
STUDY: X-RAY CHEST REASON FOR EXAM: Female, 52 years old. One week history of shortness of breath. Chest and back pain. TECHNIQUE: Single AP portable view of the chest. COMPARISON: Comparison is made with prior examination dated February 02, 2023. FINDINGS: EKG electrodes are seen. Mild degree of vascular congestion with a finding suggestive of atelectasis and/or early infiltrate in the right middle lobe. There is no demonstrated pleural abnormality. Normal size heart. Normal mediastinum and edmundo. Normal visualized pulmonary arteries. Normal visualized aortic arch and descending thoracic aorta. Normal visualized thoracic spine. Normal visualized ribs, clavicles, and shoulders. There is no demonstrated abnormality of the visualized soft tissue structures of the upper abdomen. RAD/Chest 1 View (Portable) IMPRESSION: Mild degree of vascular congestion with atelectasis and/or infiltrate in the right middle lobe. Electronically Signed: Ryan Tejeda MD at 15:00 EST ,
--- NOTE | 2023-05-03 13:57 | ED.VIS.DYS ---
HPI History of Present Illness Chief Complaint: Shortness of Breath Informant: patient Onset/Context/Timing Onset: Days Context: gradual Timing: Continuous Quality: Positive for Dyspnea on exertion and Orthopnea Current Severity: Moderate Maximum Severity: Moderate Worsened by: Exertion and Lying flat Relieved by: Rest and Oxygen Associated Symptoms Negative for cough Chest Pain: Positive for None Narrative Narrative: 52-year-old female history of CHF, CAD, cardiomyopathy, diabetes, pleural effusions and substance abuse. States that she has had increasing shortness of breath for least the last 4 days. Typically is not on oxygen. Says since 4 AM this morning she has been increasingly more short of breath. Shortness of breath is worse with exertion or supine. She has increasing swelling in her lower extremities. She denies any URI symptoms. No significant cough. No fever. No hemoptysis. PE Risk Factors: Positive for Prior DVT or PE; Negative for Cancer, OCP + Smoking + > 35, Recent immobilization, Recent surgery or Recent travel Prior similar symptoms: Yes Recent Illness/Hospitalization: No PFSH PFSH Medical History Acute dyspnea Aftercare following surgery of the circulatory system Alcohol abuse Amputation toe CAD (coronary artery disease), [place] coronary artery CHF (congestive heart failure) Depression Diabetes type 2, uncontrolled Essential hypertension GERD (gastroesophageal reflux disease) Hx of fracture of humerus Hyperlipidemia Hypoxemia Ischemic cardiomyopathy Myocardial infarct Osteoporosis Pericardial effusion Psychiatric disorder Pulmonary embolism Substance abuse Toe amputee Home Medications cholecalciferol (vitamin D3) 25 mcg (1,000 unit) tablet 1,000 unit PO DAILY vitamin 07/25/22 [History Last Taken 02/01/23] calcium carbonate 500 mg calcium (1,250 mg) tablet 1 tablet PO DAILY supplement 08/09/22 [History Last Taken 02/01/23] aspirin 81 mg capsule 81 mg PO DAILY heart health 08/10/22 [History Last Taken 02/01/23] nicotine 21 mg/24 hr daily transdermal patch 21 mg transdermal DAILY stop smoking #30 ea 09/02/22 [Rx Last Taken 02/01/23] dulaglutide 3 mg/0.5 mL subcutaneous pen injector (Trulicity) 3 mg subcut QWEEK diabetes 02/02/23 [History Last Taken 02/01/23] atorvastatin 80 mg tablet 80 mg PO DAILY #30 tabs 02/03/23 [Rx Last Taken Unknown] clopidogrel 75 mg tablet 75 mg PO DAILY #30 tabs 02/03/23 [Rx Last Taken Unknown] escitalopram oxalate 10 mg tablet (Lexapro) 10 mg PO DAILY #30 tabs 02/03/23 [Rx Last Taken Unknown] furosemide 40 mg tablet (Lasix) 40 mg PO DAILY #30 tabs 02/03/23 [Rx Last Taken Unknown] lisinopril 20 mg tablet 20 mg PO DAILY #30 tabs 02/03/23 [Rx Last Taken Unknown] insulin glargine 100 unit/mL subcutaneous solution (Lantus U-100 Insulin) 25 unit subcut BID 02/27/23 [History Last Taken Unknown] escitalopram oxalate 10 mg tablet 10 mg PO DAILY 02/28/23 [History Last Taken Unknown] carvedilol 25 mg tablet 25 mg PO BIDCM #180 tabs 03/22/23 [Rx Last Taken Unknown] dapagliflozin propanediol 10 mg tablet (Farxiga) 10 mg PO DAILY #90 tabs 03/26/23 [Rx Last Taken Unknown] pantoprazole 40 mg tablet,delayed release 40 mg PO DAILY 04/18/23 [History Last Taken Unknown] simethicone 125 mg capsule 125 mg PO TID-QID PRN 04/18/23 [History Last Taken Unknown] Allergy/AdvReac Type Severity Reaction Status Date / Time latex Allergy Hives Verified 05/03/23 13:37 Family History Mother Thyroid disorder Diabetes Hypertension Grandmother Diabetes Uncle Diabetes Aunt Diabetes Other Heart disease Surgical History History of appendectomy History of cholecystectomy Social History household members: spouse and children housing: house Smoking Status: Current every day smoker tobacco type: cigarettes alcohol intake: never substance use type: marijuana what type of physical activity do you participate in: none do you feel safe at home: Yes ROS ROS ED ROS Narrative Shortness of breath. Peripheral edema. Review of Systems ROS Unobtainable: Denies due to encephalopathy Constitutional Constitutional ED: Denies chills or fever(s) Eyes Eyes: Denies blurry vision ENT ENT ED: Denies ear pain or rhinorrhea Cardiovascular Cardiovascular: Reports orthopnea; Denies chest pain or palpitations Respiratory/Chest Respiratory/Chest: Reports dyspnea, dyspnea on exertion and orthopnea; Denies cough Gastrointestinal Gastrointestinal: Denies abdominal pain, constipation, diarrhea, melena, nausea or vomiting Genitourinary Genitourinary ED: Denies dysuria or hematuria Musculoskeletal Musculoskeletal: Denies arthralgias Integumentary Denies abscess Neurologic Neurologic: Denies headache(s) Psychiatric Psychiatric: Denies anxiety Endocrine Endocrinology: Denies cold intolerance Hematologic/Lymphatic Hematologic/Lymphatic: Denies easy bleeding or easy bruising Allergic/Immunologic Allergic/Immunologic ED: Denies mouth swelling or tongue swelling EXAM Physical Exam Narrative Exam Narrative: 52-year-old female sitting upright in bed with oxygen on. Vital signs are stable when she is off O2 her pulse ox is 88% on room air consistent hypoxia. On oxygen she is 90% or higher. H EENT exam unremarkable. Neck nontender no JVD. No lymphadenopathy. Lungs diminished in the bases. Heart regular rhythm rate about 100. Dismukes review abdomen is soft and nontender. Moving all 4 extremities. 1+ pitting edema both lower extremities equal and symmetrical. No cords. No calf tenderness. Neurologically she is awake and alert. Answering questions and following commands. Normal motor strength. Const Vital Signs: 05/03/23 13:33 05/03/23 13:37 05/03/23 13:47 Temperature 97.1 F L Temperature Source Oral Pulse Rate 100 98 Respiratory Rate 17 25 H Respiratory Effort Short of Breath Respiratory Pattern Tachypnea Blood Pressure 165/101 H 165/101 H Blood Pressure Mean 122 122 Pulse Ox 90 88 Oxygen Delivery Method Nasal Cannula Room Air Nasal Cannula Oxygen Flow Rate (L/min) 2 2 05/03/23 14:30 Temperature Temperature Source Pulse Rate Respiratory Rate Respiratory Effort Respiratory Pattern Blood Pressure Blood Pressure Mean Pulse Ox Oxygen Delivery Method Nasal Cannula Oxygen Flow Rate (L/min) 2 Positive well developed; Negative for obese, cachectic, contractures or unkempt General Appearance ED: well developed and NAD; Negative for unkempt, cachectic, contractures or pallor Nutritional Appearance: Negative for cachectic or obese HEENT Reports moist mucous membranes atraumatic; Negative for trauma or tenderness Eyes PERRL and EOMs intact bilaterally General Eye ED: Negative for pale conjunctiva or scleral icterus Neck no lymphadenopathy, supple, no meningeal signs and no JVD General: Negative for tenderness Lymph Lymphatic: Negative for other Resp normal respiratory effort and clear to auscultation bilaterally Effort and Inspection: Negative for pain with movement Auscultation: Negative for rales, rhonchi or wheezes Cardio regular rate, regular rhythm, S1 normal heart sound, S2 normal heart sound and no murmurs Rate: Negative for bradycardia or tachycardic Rhythm: Negative for abnormal rhythm GI non-tender, non-distended and no masses Inspection: Negative for other Auscultation: normoactive bowel sounds Palpation: soft; Negative for tender or guarding Back/Spine no CVA tenderness and normal to inspection General Back: Negative for CVA tenderness or tenderness Extremity Negative for normal to inspection Extremity Narrative: Bilateral lower extremity 1+ pitting edema. General Extremety ED: Yes edema; Negative for tenderness General Extremity: edema Neuro oriented x3 and CN's II-XII intact bilaterally Sensorium / Orientation: alert, oriented to person, oriented to place and oriented to time; Negative for orientation impaired, confused or lethargic Speech: speech normal Motor Exam: strength 5/5 throughout Psych mental status grossly normal Appearance: Negative for unkempt Attitude: No agitated Mood & Affect: Negative for depressed, anxious or tearful Thought Process: normal thought process Skin no wounds General Skin Exam: Negative for jaundice or pallor Lesions: no lesions Rashes: no rashes Trauma: Negative for abrasion or laceration MDM MDM MDM Narrative Medical decision making narrative: 52-year-old female significant prior cardiac history with shortness of breath. By exam she has peripheral edema, historically she has orthopnea and exertional dyspnea think is secondary to CHF or pleural effusions. Differential would also include FL, anemia etc. Cardiac workup is underway. Repeat exam at 3:40 PM unchanged. Patient remains on oxygen. She will be given IV Lasix to help diurese her. Morphine for back pain. I have the hospitalist on page for admission. History & Record Review Discussion w/independent historian: Patient Additional record(s) reviewed:: Prior inpatient record, Prior outpatient record, Prior ED visit and Prior labs Lab Data Attestation: I reviewed the patient's lab results. Lab results narrative: Patient is a white count of 7. H&H of 12 and 40. Platelets 210. Electolytes show a gap of 3. Normal BUN of 10 and creatinine 0.7. Glucose is elevated at 323. She is a known diabetic. Troponin normal at 10. BNP is elevated at 941.. Chest x-ray chronic changes of mild cephalization. Labs: Laboratory Results - last 24 hr 05/03/23 14:25 WBC 7.9 RBC 4.86 Hgb 12.6 Hct 40.1 MCV 82.5 MCH 25.9 L MCHC 31.4 L RDW Std Deviation 41.4 RDW Coeff of Spencer 14.2 Plt Count 210 MPV 9.8 Immature Gran % (Auto) 0.600 Neut % (Auto) 77.6 H Lymph % (Auto) 13.6 L [place] % (Auto) 3.9 Eos % (Auto) 3.4 Baso % (Auto) 0.9 Absolute Neuts (auto) 6.1 Absolute Lymphs (auto) 1.07 Nucleated RBC % 0 Sodium 138 Potassium 3.6 Chloride 106 Carbon Dioxide 29.0 Anion Gap 3 L BUN 10 Creatinine 0.77 Estim Creat Clear Calc 84.06 Est GFR (MDRD) Af Amer 102 Est GFR (MDRD) Non-Af 84 BUN/Creatinine Ratio 13.0 Glucose 323 H Calcium 8.6 Troponin I High Sens 14 B-Natriuretic Peptide 941.8 H Radiography Chest X-Ray - ED: 1 View and Read by ED Physician Diagnostic Testing: Clinical Impression(s) from Imaging Studies Chest X-Ray 05/03/23 13:56 IMPRESSION: Mild degree of vascular congestion with atelectasis and/or infiltrate in the right middle lobe. Electronically Signed: Ryan Tejeda MD at 15:00 EST , Rhythm Strip Rhythm Strip: Sinus Rhythm Rate: 97 Ectopy: None EKG Initial EKG: Attestation: I personally reviewed and interpreted this EKG as follows: Interpretation: Sinus Rhythm and No Acute Injury Pattern Comments: Normal sinus rhythm rate of 97. No acute signs of FL or ischemia. Interventricular conduction delay. Discharge Plan Triage Chief Complaint: Shortness of Breath ED Provider: Ananda Coyle Dx/Rx/DC Orders Clinical Impression: Hyperglycemia due to diabetes mellitus, Acute dyspnea, CHF (congestive heart failure), Hypoxia, History of cardiomyopathy, History of coronary artery disease Prescriptions: No Action calcium carbonate 500 mg calcium (1,250 mg) tablet 1 tablet PO DAILY insulin glargine [Lantus U-100 Insulin] 100 unit/mL solution 25 unit subcut BID escitalopram oxalate 10 mg tablet 10 mg PO DAILY carvedilol 25 mg tablet 25 mg PO BIDCM Qty: 180 3RF pantoprazole 40 mg tablet,delayed release (DR/EC) 40 mg PO DAILY simethicone 125 mg capsule 125 mg PO TID-QID PRN cholecalciferol (vitamin D3) 25 mcg (1,000 unit) tablet 1,000 unit PO DAILY Patient Comments: TAKE 1 TABLET DAILY aspirin 81 mg Capsule 81 mg PO DAILY nicotine 21 mg/24 hr Patch 24 Hour 21 mg transdermal DAILY Qty: 30 0RF Trulicity 3 mg/0.5 mL pen injector 3 mg SUBCUT QWEEK Patient Comments: INJECT 3 (THREE) MG SUBCUTANEOUSLY EVERY WEEK lisinopril 20 mg Tablet 20 mg PO DAILY Qty: 30 0RF clopidogrel 75 mg Tablet 75 mg PO DAILY Qty: 30 0RF furosemide [Lasix] 40 mg tablet 40 mg PO DAILY Qty: 30 0RF atorvastatin 80 mg tablet 80 mg PO DAILY Qty: 30 0RF escitalopram oxalate [Lexapro] 10 mg tablet 10 mg PO DAILY Qty: 30 0RF Farxiga 10 mg tablet 10 mg PO DAILY Qty: 90 3RF Primary Care Provider: Aam Dickey Referrals: [facility] Ama Finney [Primary Care Provider] - Disposition Disposition: Acute Care Hospital [facility]
[2023-05-03 14:32] LABS: Absolute Lymphocyte Count 1.07 X10^3/uL (0.83-4.51); Absolute Neutrophil Count 6.1 X10^3/uL (2.0-7.7); Basophil# 0.07 X10^3/uL; Basophil% 0.9 % (0-1); Eosinophil# 0.27 X10^3/uL; Eosinophils% 3.4 % (0-5); Hematocrit 40.1 % (37-47); Hemoglobin 12.6 g/dL (12.0-15.0); Lymphocyte # 1.07 X10^3/ul (0.83-4.51); Lymphocyte % 13.6 % (19-41); Mean Corp Hgb Conc 31.4 g/dL (32-36); Mean Corpuscular Hgb 25.9 pg (27.0-32.0); Mean Corpuscular Volume 82.5 fL (81-99); Mean Platelet Vol. 9.8 fl (6.2-12.0); Monocyte# 0.31 X10^3/uL; Monocyte% 3.9 % (0-10); NRBC Flagged by Analyzer 0 % (0-5); Neutrophil # 6.12 X10^3/uL (2.7-7.7); Neutrophil % 77.6 % (47-70); Platelet Count 210 K/mm3 (150-450); RBC Distribution Width CV 14.2 % (11.6-14.6); RBC Distribution Width SD 41.4 fl (35.1-43.9); Red Blood Count 4.86 M/mm3 (4.2-5.4); White Blood Count 7.9 K/mm3 (4.4-11.0)
[2023-05-03 14:50] LABS: Anion Gap 3 (5-15); BUN 10 mg/dL (7-18); Calcium,Total 8.6 mg/dL (8.5-10.1); Chloride 106 mmol/L (98-107); Creatinine, Serum 0.77 mg/dL (0.55-1.02); EST Glomerular Filtration Rate 84 mL/min (>60); Est Glom Filt Rate - Afr Amer 102 mL/min (>60); Estimated Creatinine Clearance 84.06 ml/min; Glucose 323 mg/dL (74-106); Potassium 3.6 mmol/L (3.5-5.1); Sodium Level 138 mmol/L (136-145); Troponin-I HS 14 pg/mL (3.0-54.0)
[2023-05-03 14:56] LABS: BNP,B-Type NATRIURETIC PEPTIDE 941.8 pg/mL (0-100)
[2023-05-03] MEDS: HYDROcodone Bitartrate/Apap 5/325 Tablet PO (15:00)
[2023-05-03] MEDS: Furosemide 40 MG/4 ML Vial IV ×2 (15:53→21:00)
[2023-05-03] MEDS: Morphine 4 MG/ML Syringe IV (15:53)
--- NOTE | 2023-05-03 16:24 | PCM.HP.STD ---
HPI - General General Date of Admission: 05/03/23 Date of Service: 05/03/23 Chief Complaint: Worsening shortness of breath HPI Narrative TRENTON DENTON, is a 52 F who presented to [facility] ED on 05/03/2023 with 3 to 4-day history of worsening shortness of breath. Patient seen at bedside in the ED. Patient appears much older than stated age and appears chronically ill. She is sitting up in bed and conversing normally during our encounter. She was requiring 3 L nasal cannula to maintain oxygen saturations greater than 90%. Was breathing comfortably at rest, no increased work of breathing noted. Patient states that she developed worsening shortness of breath while at home over the last few days. Patient reports taking all of her home medications as prescribed, but on chart review patient does appear to have a significant history of medication nonadherence. Patient follows with cardiology in the office, last office visit was on 03/22/2023. Patient was noted to have an EF of 15% on echo in 08/2022. Cardiology has been following her closely since that time. Patient reports feeling mildly volume overloaded, has mild worsening of edema in her legs. She denies any cough or sputum production. She denies any lightheadedness or dizziness. She reports mild generalized chest pain and upper back pain, unchanged at rest or with exertion. Denies any abdominal pain or discomfort. No other acute concerns this time. [facility] Medical History (Updated 05/03/23 @ 17:53 by Paula Clayton) Acute dyspnea Aftercare following surgery of the circulatory system Alcohol abuse Amputation toe CAD (coronary artery disease), [place] coronary artery CHF (congestive heart failure) Depression Diabetes type 2, uncontrolled DVT (deep venous thrombosis) Essential hypertension GERD (gastroesophageal reflux disease) Hx of fracture of humerus Hyperlipidemia Hypoxemia Ischemic cardiomyopathy Myocardial infarct Osteoporosis Pericardial effusion Psychiatric disorder Pulmonary embolism Rheumatoid arthritis Seizures Sleep apnea Smoker Substance abuse Toe amputee Home Medications cholecalciferol (vitamin D3) 25 mcg (1,000 unit) tablet 1,000 unit PO DAILY vitamin 07/25/22 [History Last Taken 02/01/23] calcium carbonate 500 mg calcium (1,250 mg) tablet 1 tablet PO DAILY supplement 08/09/22 [History Last Taken 02/01/23] aspirin 81 mg capsule 81 mg PO DAILY heart health 08/10/22 [History Last Taken 02/01/23] nicotine 21 mg/24 hr daily transdermal patch 21 mg transdermal DAILY stop smoking #30 ea 09/02/22 [Rx Last Taken 02/01/23] dulaglutide 3 mg/0.5 mL subcutaneous pen injector (Trulicity) 3 mg subcut QWEEK diabetes 02/02/23 [History Last Taken 02/01/23] atorvastatin 80 mg tablet 80 mg PO DAILY #30 tabs 02/03/23 [Rx Last Taken Unknown] clopidogrel 75 mg tablet 75 mg PO DAILY #30 tabs 02/03/23 [Rx Last Taken Unknown] escitalopram oxalate 10 mg tablet (Lexapro) 10 mg PO DAILY #30 tabs 02/03/23 [Rx Last Taken Unknown] furosemide 40 mg tablet (Lasix) 40 mg PO DAILY #30 tabs 02/03/23 [Rx Last Taken Unknown] lisinopril 20 mg tablet 20 mg PO DAILY #30 tabs 02/03/23 [Rx Last Taken Unknown] insulin glargine 100 unit/mL subcutaneous solution (Lantus U-100 Insulin) 25 unit subcut BID 02/27/23 [History Last Taken Unknown] carvedilol 25 mg tablet 25 mg PO BIDCM #180 tabs 03/22/23 [Rx Last Taken Unknown] dapagliflozin propanediol 10 mg tablet (Farxiga) 10 mg PO DAILY #90 tabs 03/26/23 [Rx Last Taken Unknown] pantoprazole 40 mg tablet,delayed release 40 mg PO DAILY 04/18/23 [History Last Taken Unknown] simethicone 125 mg capsule 125 mg PO TID-QID PRN abdominal distention 04/18/23 [History Last Taken Unknown] Allergy/AdvReac Type Severity Reaction Status Date / Time latex Allergy Hives Verified 05/03/23 13:37 Family History Mother Thyroid disorder Diabetes Hypertension Grandmother Diabetes Uncle Diabetes Aunt Diabetes Other Heart disease Surgical History History of appendectomy History of cholecystectomy Social History household members: spouse and children housing: house Smoking Status: Current every day smoker tobacco type: cigarettes alcohol intake: never substance use type: marijuana what type of physical activity do you participate in: none do you feel safe at home: Yes ROS Constitutional Constitutional: Reports fatigue and weakness; Denies change in weight, chills or fever(s) Eyes Eyes: Denies change in vision Cardiovascular Cardiovascular: Reports dyspnea on exertion and edema; Denies chest pain, lightheadedness, palpitations or rapid heart rate Respiratory/Chest Respiratory/Chest: Reports shortness of breath with exertion; Denies cough, shortness of breath at rest or wheezing Gastrointestinal Gastrointestinal: Denies abdominal pain, constipation, diarrhea, nausea or vomiting Genitourinary Genitourinary: Denies dysuria Musculoskeletal Musculoskeletal: Reports back pain; Denies arthralgias Neurologic Neurologic: Denies confusion, dizziness, focal weakness, headache(s), numbness or paresthesias Vital Signs Vital Signs Vital Signs: 05/03/23 13:33 05/03/23 13:37 05/03/23 13:47 Temperature 97.1 F L Temperature Source Oral Pulse Rate 100 98 Respiratory Rate 17 25 H Respiratory Effort Short of Breath Respiratory Pattern Tachypnea Blood Pressure 165/101 H 165/101 H Blood Pressure Mean 122 122 Pulse Ox 90 88 Oxygen Delivery Method Nasal Cannula Room Air Nasal Cannula Oxygen Flow Rate (L/min) 2 2 05/03/23 14:30 05/03/23 15:33 05/03/23 16:23 Temperature Temperature Source Pulse Rate 95 96 Respiratory Rate 18 16 Respiratory Effort Respiratory Pattern Blood Pressure 140/88 H 134/84 H Blood Pressure Mean 105 100 Pulse Ox 90 90 Oxygen Delivery Method Nasal Cannula Nasal Cannula Oxygen Flow Rate (L/min) 2 3 Weight Weight: 77.1 kg Body Mass Index (BMI) 26.6 Physical Exam Const alert and oriented x3 Constitutional Narrative: Middle aged female, appears much older than stated age, chronically ill-appearing, sitting comfortably in bed, conversing normally, mild distress due to generalized chest and back discomfort. Satting in low 90s on 3 L nasal cannula, no increased work of breathing noted. General Appearance: cooperative HEENT normocephalic, head/scalp atraumatic, hearing grossly normal bilaterally, nasal mucous membranes and turbinates normal and moist oral mucous membranes Eyes PERRL, EOMs intact bilaterally and conjunctivae normal Neck full ROM, no lymphadenopathy and supple Lymph Lymphatic: no lymphadenopathy noted Chest inspection of chest normal Resp Resp Narrative: Decreased breath sounds throughout bilaterally, worst at lung bases. Mild crackles noted at lung bases. No wheezing noted. No increased work of breathing noted. Cardio regular rate, regular rhythm, no murmurs and peripheral pulses 2+ throughout GI normal to inspection, nondistended, normoactive bowel sounds, soft to palpation, non-tender and non-distended Back/Spine normal ROM Extremity normal to inspection and full ROM Extremity Narrative: +2-3 bilateral lower extremity pitting edema. Skin no rashes or lesions noted Neuro moves all extremities and no focal motor deficits Speech: speech normal Psych mental status grossly normal Results Lab / Micro Data 05/03/23 14:25 05/03/23 14:25 Labs: Laboratory Results - last 24 hr 05/03/23 14:25: WBC 7.9, RBC 4.86, Hgb 12.6, Hct 40.1, MCV 82.5, MCH 25.9 L, MCHC 31.4 L, RDW Std Deviation 41.4, RDW Coeff of Spencer 14.2, Plt Count 210, MPV 9.8, Immature Gran % (Auto) 0.600, Neut % (Auto) 77.6 H, Lymph % (Auto) 13.6 L, [place] % (Auto) 3.9, Eos % (Auto) 3.4, Baso % (Auto) 0.9, Absolute Neuts (auto) 6.1, Absolute Lymphs (auto) 1.07, Nucleated RBC % 0, Sodium 138, Potassium 3.6, Chloride 106, Carbon Dioxide 29.0, Anion Gap 3 L, BUN 10, Creatinine 0.77, Estim Creat Clear Calc 84.06, Est GFR (MDRD) Af Amer 102, Est GFR (MDRD) Non-Af 84, BUN/Creatinine Ratio 13.0, Glucose 323 H, Calcium 8.6, Troponin I High Sens 14, B-Natriuretic Peptide 941.8 H Micro: Microbiology 05/03/23 14:25 Nasal Secretion SARS-CoV-2 & FLU Antigen (Rapid) - Final Rhythm Strip Rhythm Strip: Sinus Rhythm Rate: 97 Ectopy: None Imagaing Radiology Impression Chest X-Ray 05/03/23 13:56 IMPRESSION: Mild degree of vascular congestion with atelectasis and/or infiltrate in the right middle lobe. Electronically Signed: Ryan Tejeda MD at 15:00 EST , Assessment & Plan Assessment/Plan (1) CHF (congestive heart failure): (2) Hyperglycemia due to diabetes mellitus: PLAN: Plan Patient is a 52-year-old female who presented to [facility] ED on 05/03/2023 with worsening shortness of breath. 1. Severe HFrEF with mild CHF exacerbation, history of severe CAD of LAD, history of PAD s/p stenting of right femoral artery in 08/2022, acute hypoxia with history of COPD Follows with cardiology, last office visit on 03/22/2023. Patient had echo in 08/2022 that showed an EF of 15%, severe hypokinesis/akinesis of the majority of her left ventricle. She had known premature CAD dating back to 2013. Has had multiple heart cath done but does not appear that she has had any stents placed. Last left heart cath in 2018 showed long segment of severe diffuse narrowing in proximal and midportion of LAD, normal right and circumflex coronary arteries. Echo in 2019 showed an EF of 30 to 35% with similar areas of hypokinesis in comparison to most recent echo. Patient with mild volume overload on this admission. Chest x-ray showed mild degree of vascular congestion, +2-3 lower extremity pitting edema, BNP 941, patient requiring 3 L nasal cannula to maintain oxygen saturations greater than 88%. Does not wear oxygen at baseline. No wheezing noted on exam. ? Admit under inpatient status to PCU. Cardiology consulted. Will start IV Lasix 40 mg twice daily for now. Repeat echo ordered. Wean supplemental oxygen as able. Continue home aspirin, statin, Plavix. Continue home Coreg, will hold home lisinopril for now, restart when able. Hold home dapagliflozin. 2. Poorly controlled type 2 diabetes with hyperglycemia BG 323 on admit. Last A1c of 11.5% in 08/2022, A1c of greater than 14% in 08/2021. Home regimen of insulin glargine 25 units twice daily, Trulicity 3 mg weekly, dapagliflozin 10 mg daily. Patient reports compliance with this regimen. A1c of 11.0% on this admission. ? Will start Lantus 20 units twice daily with high-dose sliding scale insulin for now, adjust as needed. 3. Debility Patient lives at home with her daughter. States she has generally been able to take care of herself without issue, but she has been feeling progressively weaker over the last several weeks to months. ? PT/OT/case management consulted. Chronic medical conditions: ? Hypertension, hyperlipidemia: See medication recommendations as noted above. ? Anxiety/depression: Continue home Lexapro. ? Current smoker: Attempting to quit, using a 21 mg nicotine patch at home and smoking 5 to 10 cigarettes a day per her report. Continue nicotine patch while inpatient. ? GERD: Continue home PPI. ? History of substance abuse: Previous history of opiate dependence for pain. Not currently on opiates at home. Strongly recommend avoiding opiates for pain management while inpatient. DVT prophylaxis: Lovenox CODE STATUS: Full code, verified Expected disposition: TBD Total clinical time spent by myself addressing the patient's medical issues, reviewing all the data, and collaborating with patient's care team: 55 minutes. Charges/Coding Visit Charges Inpatient E&M: 51327 Init Hosp L2
--- NOTE | 2023-05-03 16:50 | NURSING ---
PCU OBS MOSTELLER CHF, DM, HYPOXIA, CARIOMYOPATHY
[2023-05-03 17:19] LABS: Magnesium 2.3 mg/dL (1.6-2.6)
--- NOTE | 2023-05-03 17:56 | ECHOCS_ITS ---
Reason For Study: CHF Procedure This was a 2D Doppler, Color Flow transthoracic echocardiogram. Contrast injection was performed. Exam performed portable in patient room. Left Ventricle Normal LV size. The left ventricular ejection fraction is 15 %. Severe segmental systolic dysfunction (see wall motion). Stage 3 diastolic dysfunction. [place] : Akinetic. Lateral-Basal: Akinetic. Mid-Anterior : Akinetic. Mid-anteroseptal : Akinetic. Posterior-Basal: Normal. The rest of the wall segments are hypokinetic. Right Ventricle Normal RV size. Normal systolic function. Atria Normal left atrium. Normal right atrium. Mitral Valve Bileaflet diffuse mitral valve thickening. Moderate (2+) eccentric mitral valve insufficiency. Tricuspid Valve Normal tricuspid valve. Mild (1+) tricuspid valve insufficiency. Pulmonary artery systolic pressure is 35 mmHg. Aortic Valve Trisinus/trileaflet aortic valve. Great Vessels Normal aortic root. The pulmonary artery is normal size. Pericardium/Pleural No pericardial effusion. Medication Diluted definity 3ml given slow IV push to enhance endocardial definition. MMode/2D Measurements & Calculations LVIDd: 5.3 cm IVSd: 1.1 cm Ao root diam: 2.4 cm LVIDs: 4.4 cm LVPWd: 1.1 cm RVDd: 2.8 cm FS: 16.1 % LAV(MOD-bp): 64.5 ml LVAd ap4: 41.9 cm2 SV(MOD-sp4): 28.8 ml LAV(MOD-bp) Indexed: 34.4 ml/m2 LVLd ap4: 8.4 cm LAV(MOD-sp2): 63.9 ml EDV(MOD-sp4): 170.9 ml LAV(MOD-sp4): 58.0 ml EDV(sp4-el): 176.8 ml LVAs ap4: 38.1 cm2 LVLs ap4: 8.2 cm ESV(MOD-sp4): 142.1 ml ESV(sp4-el): 150.2 ml EF(MOD-sp4): 16.9 % EF(sp4-el): 15.1 % SV(sp4-el): 26.7 ml LA A4 area: 20.1 cm2 LA dimension(2D): 4.9 cm RA A4 area: 11.1 cm2 TAPSE: 1.6 cm Time Measurements MV dec time: 0.14 sec Doppler Measurements & Calculations MV E max kristian: 115.9 cm/sec Lat Peak E' Kristian: 5.2 cm/sec Med Peak E' Kristian: 2.5 cm/sec MV A max kristian: 53.7 cm/sec E/E' lat: 22.1 E/E' med: 45.6 MV E/A: 2.2 Ao V2 max: 124.0 cm/sec LV V1 max: 105.3 cm/sec MV dec slope: 811.2 cm/sec2 Ao max P.1 mmHg LV V1 max P.4 mmHg Ao V2 mean: 91.5 cm/sec LV V1 mean P.7 mmHg Ao mean P.8 mmHg LV V1 mean: 77.0 cm/sec Ao V2 VTI: 25.2 cm LV V1 VTI: 21.5 cm AV (velocity ratio): 0.86 PA V2 max: 70.1 cm/sec TR max kristian: 277.0 cm/sec TR max P.7 mmHg ECHO/Echo Complete W/ Contrast Interpretation Summary The left ventricular ejection fraction is 15 %. Severe segmental systolic dysfunction (see wall motion). Stage 3 diastolic dysfunction. Normal LV size. Moderate (2+) eccentric mitral valve insufficiency. Ordering Physician: Jonas Justin Referring Physician: [facility] Performed By: Jyoti Pandey, EDMOND, RVT
[2023-05-03 18:42] LABS: Bedside Glucose 275 mg/dL (74-106)
[2023-05-03] MEDS: Insulin Glargine-YFGN 100 UNIT/ML Pen 20 UNIT SC (18:42)
[2023-05-03] MEDS: Carvedilol 25 MG Tablet PO (18:43)
[2023-05-03] MEDS: Insulin Lispro 100 UNIT/ML INSULN.PEN SC (21:02)
[2023-05-03] MEDS: 0.9% Saline Lock 10 ML Syringe IV (21:07)
[2023-05-03] MEDS: Acetaminophen 500 MG Tablet 1000 MG PO (21:27)
[2023-05-03] MEDS: cycloBENZAPRine HCl 10 MG Tablet PO (21:27)
[2023-05-03] MEDS: Ondansetron 4 MG/2 ML Vial IV (21:27)
[2023-05-03 22:25] LABS: Bedside Glucose 315 mg/dL (74-106)
[2023-05-04 03:00] VITALS: BP 95/56; PULSE 78; RESP 16; TEMP 36.8; O2SAT 97
[2023-05-04 05:55] VITALS: BMI 26.6
[2023-05-04] MEDS: Ondansetron 4 MG/2 ML Vial IV ×3 (06:00→22:19)
[2023-05-04] MEDS: 0.9% Saline Lock 10 ML Syringe IV ×5 (06:02→22:19)
[2023-05-04] MEDS: Acetaminophen 500 MG Tablet 1000 MG PO ×3 (06:03→22:19)
[2023-05-04] MEDS: cycloBENZAPRine HCl 10 MG Tablet PO ×3 (06:03→22:19)
--- NOTE | 2023-05-04 06:04 | EKG12_ITS ---
Test Reason : CP Blood Pressure : / mmHG Vent. Rate : 078 BPM Atrial Rate : 078 BPM P-R Int : 180 ms QRS Dur : 118 ms QT Int : 424 ms P-R-T Axes : 038 -36 119 degrees QTc Int : 483 ms Normal sinus rhythm Possible Left atrial enlargement Left axis deviation Left ventricular hypertrophy with QRS widening ( Brian product ) Cannot rule out Septal infarct , age undetermined Abnormal ECG When compared with ECG of 03-MAY-2023 13:48, MANUAL COMPARISON REQUIRED, DATA IS UNCONFIRMED Confirmed by TIP HERNANDEZ, LORETA ([id number]), health editor FELICIA HOLCOMB ([id number]) on 05/04/2023 1:57:26 PM Referred By: Confirmed By:LORETA WHELAN MD
--- NOTE | 2023-05-04 06:06 | NURSING ---
Pt reports pain to chest and back /10. States is same as has had before. Ordered ekg to evaluate chest pain per hospital policy. VS obtained. bp 124/76.
[2023-05-04 06:25] LABS: Hematocrit 37.5 % (37-47); Hemoglobin 11.8 g/dL (12.0-15.0); Mean Corp Hgb Conc 31.5 g/dL (32-36); Mean Corpuscular Volume 82.8 fL (81-99); Mean Platelet Vol. 10.5 fl (6.2-12.0); Platelet Count 184 K/mm3 (150-450); RBC Distribution Width CV 14.2 % (11.6-14.6); RBC Distribution Width SD 41.9 fl (35.1-43.9); Red Blood Count 4.53 M/mm3 (4.2-5.4); White Blood Count 5.7 K/mm3 (4.4-11.0)
[2023-05-04 06:31] LABS: Bedside Glucose 134 mg/dL (74-106)
--- NOTE | 2023-05-04 06:51 | PCM.CONS.C ---
Assessment & Plan Assessment/Plan (1) CHF (congestive heart failure): PLAN: She does have evidence of congestive heart failure which is systolic [place] Heart Association class III. It appears that this is a combination of coronary artery disease and hypertensive cardiomyopathy. This has been longstanding The particular exacerbation is not entirely clear at this time. I would recommend the following: Continue current dose of beta-linda Intravenous diuretics with IV Lasix Start oral spironolactone Start Entresto Repeat echocardiogram Dietary counseling We will review at outpatient. If ejection fraction is still reduced will consider an implantable defibrillator. With her incomplete left bundle branch block will consider whether she would be a candidate for a [employer]-D. 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 We will continue to manage the above with medical therapy. He has not had any angina. Thank you for allowing me to participate in the care of your patient. Please don't hesitate to call if any issues arise. HPI Consult Data Date of Consult: 05/04/23 HPI Narrative HPI Narrative: TRENTON DENTON, is a 52 F who presents with a history of premature coronary artery disease dating back to at least 2013. She does have a history of hypertension hyperlipidemia coronary artery disease involving the proximal to mid section of the LAD which was apparently severely diseased. She had undergone cardiac catheterization which had demonstrated this and had been evaluated in [place] and had a stress test which demonstrated an akinetic zone involving nearly the entire anterior wall. In addition it was thought that based on his stress test as well as the anatomy it did not appear that she was a particularly good candidate for PCI of this vessel. Medical therapy was recommended. She was also noted to have reduced left ventricular systolic dysfunction with estimated ejection fraction of between 30 and 40%. She has complained of significant fairly constant chest discomfort has been seen in various emergency room's without significant abnormality noted. In August of this year she was noted to be hospitalized and had an echocardiogram performed which demonstrated an ejection fraction of 15% with severe hypokinesis to akinesis of most of the ventricle. In December of this year she was admitted to the hospital complaining of constant chest discomfort coughing as well as shortness of breath. In the emergency room she was noted to be hypoxic a CT of the chest demonstrated no evidence of blood clots. She was admitted with pleurisy and diuresed. She ruled out for myocardial infarction she was subsequently optimized with respect to her medical therapy and discharged for outpatient follow-up. She unfortunately continues to use tobacco products. She presented to the emergency room again last night complaining of shortness of breath and mild pedal edema. She says that she has been nonambulant and has been compliant with her medications. Its not sure how much she has been watching her diet as she has 2 cans of [employer] sitting next to her. Due to abnormal blood work she was admitted for further evaluation and management. [facility] Medical History (Updated 05/03/23 @ 17:53 by Paula Clayton) Acute dyspnea Aftercare following surgery of the circulatory system Alcohol abuse Amputation toe CAD (coronary artery disease), [place] coronary artery CHF (congestive heart failure) Depression Diabetes type 2, uncontrolled DVT (deep venous thrombosis) Essential hypertension GERD (gastroesophageal reflux disease) Hx of fracture of humerus Hyperlipidemia Hypoxemia Ischemic cardiomyopathy Myocardial infarct Osteoporosis Pericardial effusion Psychiatric disorder Pulmonary embolism Rheumatoid arthritis Seizures Sleep apnea Smoker Substance abuse Toe amputee Home Medications cholecalciferol (vitamin D3) 25 mcg (1,000 unit) tablet 1,000 unit PO DAILY vitamin 07/25/22 [History Last Taken 02/01/23] calcium carbonate 500 mg calcium (1,250 mg) tablet 1 tablet PO DAILY supplement 08/09/22 [History Last Taken 02/01/23] aspirin 81 mg capsule 81 mg PO DAILY heart health 08/10/22 [History Last Taken 02/01/23] nicotine 21 mg/24 hr daily transdermal patch 21 mg transdermal DAILY stop smoking #30 ea 09/02/22 [Rx Last Taken 02/01/23] dulaglutide 3 mg/0.5 mL subcutaneous pen injector (Trulicity) 3 mg subcut QWEEK diabetes 02/02/23 [History Last Taken 02/01/23] atorvastatin 80 mg tablet 80 mg PO DAILY #30 tabs 02/03/23 [Rx Last Taken Unknown] clopidogrel 75 mg tablet 75 mg PO DAILY #30 tabs 02/03/23 [Rx Last Taken Unknown] escitalopram oxalate 10 mg tablet (Lexapro) 10 mg PO DAILY #30 tabs 02/03/23 [Rx Last Taken Unknown] furosemide 40 mg tablet (Lasix) 40 mg PO DAILY #30 tabs 02/03/23 [Rx Last Taken Unknown] lisinopril 20 mg tablet 20 mg PO DAILY #30 tabs 02/03/23 [Rx Last Taken Unknown] insulin glargine 100 unit/mL subcutaneous solution (Lantus U-100 Insulin) 25 unit subcut BID 02/27/23 [History Last Taken Unknown] carvedilol 25 mg tablet 25 mg PO BIDCM #180 tabs 03/22/23 [Rx Last Taken Unknown] dapagliflozin propanediol 10 mg tablet (Farxiga) 10 mg PO DAILY #90 tabs 03/26/23 [Rx Last Taken Unknown] pantoprazole 40 mg tablet,delayed release 40 mg PO DAILY 04/18/23 [History Last Taken Unknown] simethicone 125 mg capsule 125 mg PO TID-QID PRN abdominal distention 04/18/23 [History Last Taken Unknown] Allergy/AdvReac Type Severity Reaction Status Date / Time latex Allergy Hives Verified 05/03/23 13:37 Family History Mother Thyroid disorder Diabetes Hypertension Grandmother Diabetes Uncle Diabetes Aunt Diabetes Other Heart disease Surgical History History of appendectomy History of cholecystectomy Social History household members: spouse and children housing: house Smoking Status: Current every day smoker tobacco type: cigarettes alcohol intake: never substance use type: marijuana what type of physical activity do you participate in: none do you feel safe at home: Yes ROS Constitutional Constitutional: Denies fever(s) or weight loss Eyes Eyes: Reports systems reviewed and no addt'l complaints, except as documented ENT HEENT: Reports systems reviewed and no addt'l complaints, except as documented Cardiovascular Cardiovascular: Denies chest pain at rest, chest pain with activity, dyspnea at rest, dyspnea on exertion, edema, palpitations or paroxysmal nocturnal dyspnea Respiratory/Chest Respiratory/Chest: Reports dyspnea on exertion, shortness of breath at rest and shortness of breath with exertion; Denies productive cough Gastrointestinal Gastrointestinal: Denies change in bowel habits, nausea, vomiting or weight changes Genitourinary Genitourinary: Denies difficulty urinating Musculoskeletal Musculoskeletal: Denies joint stiffness or muscle weakness Integumentary Integumentary: Denies lesions Neurologic Neurologic: Denies dizziness or syncope Psychiatric Psychiatric: Denies anxiety Endocrine Endocrinology: Denies excessive sweating or fatigue Hematologic/Lymphatic Hematologic/Lymphatic: Denies anemia Allergic/Immunologic Allergic/Immunologic: Denies seasonal rhinorrhea Physical Exam Const alert, oriented x3 and no apparent distress General Appearance: cooperative HEENT hearing grossly normal bilaterally Head and Scalp: atraumatic Eyes EOMs intact bilaterally Neck General: normal visual inspection Chest inspection of chest normal and palpation of chest normal Resp normal respiratory effort Auscultation: clear to auscultation bilaterally Cardio regular rate, regular rhythm, S1 normal heart sound and S2 normal heart sound Jugular Venous Distention: JVD Palpation: palpable S3 GI normal to inspection, nondistended, normoactive bowel sounds Extremity normal capillary refill General Extremity: edema Peripheral Pulses: Yes pulses 2+ throughout and femoral pulses present Skin no rashes or lesions noted Neuro oriented x3 and CN's II-XII intact bilaterally Psych Appearance: grossly normal and appropriate Risk Stratification Risk Stratification Applicable: No Objective Data Vital Signs: Vital Signs Temp Pulse Resp BP Pulse Ox O2 Del Method O2 Flow Rate 98.3 F 78 16 95/56 L 97 Nasal Cannula 5 05/04/23 03:00 05/04/23 03:00 05/04/23 03:00 05/04/23 03:00 05/04/23 03:00 05/04/23 03:51 05/04/23 03:51 Oxygen Flow Rate (L/min) 5 Oxygen Delivery Method Nasal Cannula Weight: 170 lb 3.15 oz Body Mass Index (BMI) 26.6 Intake & Output: Intake and Output for Last 24 Hours 05/02/23 05/03/23 05/04/23 23:59 23:59 23:59 Intake Total 240 / 480 640 / 640 Output Total 200 / 200 Balance 240 / 280 440 / 440 Lab / Micro Data 05/04/23 05:10 05/03/23 14:25 Labs: Laboratory Results - last 24 hr 05/03/23 14:25: WBC 7.9, RBC 4.86, Hgb 12.6, Hct 40.1, MCV 82.5, MCH 25.9 L, MCHC 31.4 L, RDW Std Deviation 41.4, RDW Coeff of Spencer 14.2, Plt Count 210, MPV 9.8, Immature Gran % (Auto) 0.600, Neut % (Auto) 77.6 H, Lymph % (Auto) 13.6 L, Terrell % (Auto) 3.9, Eos % (Auto) 3.4, Baso % (Auto) 0.9, Absolute Neuts (auto) 6.1, Absolute Lymphs (auto) 1.07, Nucleated RBC % 0, Sodium 138, Potassium 3.6, Chloride 106, Carbon Dioxide 29.0, Anion Gap 3 L, BUN 10, Creatinine 0.77, Estim Creat Clear Calc 84.06, Est GFR (MDRD) Af Amer 102, Est GFR (MDRD) Non-Af 84, BUN/Creatinine Ratio 13.0, Glucose 323 H, Calcium 8.6, Magnesium 2.3, Troponin I High Sens 14, B-Natriuretic Peptide 941.8 H 05/03/23 17:50: Hemoglobin A1c 11.0 H 05/03/23 18:18: POC Glucose 275 H 05/03/23 21:02: POC Glucose 315 H 05/04/23 05:10: WBC 5.7, RBC 4.53, Hgb 11.8 L, Hct 37.5, MCV 82.8, MCH 26.0 L, MCHC 31.5 L, RDW Std Deviation 41.9, RDW Coeff of Spencer 14.2, Plt Count 184, MPV 10.5 05/04/23 06:11: POC Glucose 134 H Micro: Microbiology 05/03/23 14:25 Nasal Secretion SARS-CoV-2 & FLU Antigen (Rapid) - Final Rhythm Strip Rhythm Strip: Sinus Rhythm Rate: 97 Ectopy: None Cardiology Labs/Tests 05/03/23 14:25: WBC 7.9, RBC 4.86, Hgb 12.6, Hct 40.1, MCV 82.5, MCH 25.9 L, MCHC 31.4 L, Plt Count 210, MPV 9.8, Immature Gran % (Auto) 0.600, Neut % (Auto) 77.6 H, Lymph % (Auto) 13.6 L, Terrell % (Auto) 3.9, Eos % (Auto) 3.4, Baso % (Auto) 0.9, Absolute Neuts (auto) 6.1, Nucleated RBC % 0, Sodium 138, Potassium 3.6, Chloride 106, Carbon Dioxide 29.0, Anion Gap 3 L, BUN 10, Creatinine 0.77, Est GFR (MDRD) Af Amer 102, Est GFR (MDRD) Non-Af 84, BUN/Creatinine Ratio 13.0, Glucose 323 H, Calcium 8.6, Magnesium 2.3, B-Natriuretic Peptide 941.8 H 05/03/23 17:50: Hemoglobin A1c 11.0 H 05/04/23 05:10: WBC 5.7, RBC 4.53, Hgb 11.8 L, Hct 37.5, MCV 82.8, MCH 26.0 L, MCHC 31.5 L, Plt Count 184, MPV 10.5 Rhythm: EKG: ECHO: Stress Test: Cardiac Cath: PCI: CT Surgery: Holter monitor: EPS: PPM: CXR: Chest CT Scan: Radiography Diagnostic Testing: Radiology Impression Chest X-Ray 05/03/23 13:56 IMPRESSION: Mild degree of vascular congestion with atelectasis and/or infiltrate in the right middle lobe. Electronically Signed: Ryan Tejeda MD at 15:00 EST ,
[2023-05-04 07:07] VITALS: PULSE 82; RESP 18; O2SAT 97
[2023-05-04] MEDS: Ipratropium/Albuterol Sulfate 3 ML AMPUL.NEB INHALATION (07:07)
[2023-05-04 07:25] LABS: Anion Gap 5 (5-15); BUN 11 mg/dL (7-18); BUN/Creat Ratio 17.3 RATIO (10-20); Calcium,Total 8.2 mg/dL (8.5-10.1); Chloride 105 mmol/L (98-107); Creatinine, Serum 0.64 mg/dL (0.55-1.02); EST Glomerular Filtration Rate 105 mL/min (>60); Est Glom Filt Rate - Afr Amer 127 mL/min (>60); Estimated Creatinine Clearance 101.13 ml/min; Glucose 133 mg/dL (74-106); Magnesium 2.1 mg/dL (1.6-2.6); Sodium Level 138 mmol/L (136-145)
--- NOTE | 2023-05-04 08:26 | PCM.PN.HOSP ---
Reason for Visit Reason for Visit: Diagnoses Type 2 diabetes mellitus with hyperglycemia (05/03/23) Heart failure, unspecified (05/03/23) Personal history of other diseases of the circulatory system (05/03/23) Subjective Subjective Feels like breathing is getting better, is feeling somewhat sick to her stomach, also feels constipated Objective Data Objective Data Vital Signs: Vital Signs Temp Pulse Resp BP Pulse Ox O2 Del Method O2 Flow Rate 98.3 F 78 16 95/56 L 97 Nasal Cannula 5 05/04/23 03:00 05/04/23 03:00 05/04/23 03:00 05/04/23 03:00 05/04/23 03:00 05/04/23 03:51 05/04/23 03:51 Oxygen Flow Rate (L/min) 5 Oxygen Delivery Method Nasal Cannula Weight: 77.2 kg Body Mass Index (BMI) 26.6 Intake & Output: Intake and Output for Last 24 Hours 05/02/23 05/03/23 05/04/23 23:59 23:59 23:59 Intake Total 240 / 480 640 / 640 Output Total 200 / 200 Balance 240 / 280 440 / 440 Lab / Micro Data 05/04/23 05:10 05/04/23 05:10 Labs: Laboratory Results - last 24 hr 05/03/23 14:25: WBC 7.9, RBC 4.86, Hgb 12.6, Hct 40.1, MCV 82.5, MCH 25.9 L, MCHC 31.4 L, RDW Std Deviation 41.4, RDW Coeff of [place] 14.2, Plt Count 210, MPV 9.8, Immature Gran % (Auto) 0.600, Neut % (Auto) 77.6 H, Lymph % (Auto) 13.6 L, [place] % (Auto) 3.9, Eos % (Auto) 3.4, Baso % (Auto) 0.9, Absolute Neuts (auto) 6.1, Absolute Lymphs (auto) 1.07, Nucleated RBC % 0, Sodium 138, Potassium 3.6, Chloride 106, Carbon Dioxide 29.0, Anion Gap 3 L, BUN 10, Creatinine 0.77, Estim Creat Clear Calc 84.06, Est GFR (MDRD) Af Amer 102, Est GFR (MDRD) Non-Af 84, BUN/Creatinine Ratio 13.0, Glucose 323 H, Calcium 8.6, Magnesium 2.3, Troponin I High Sens 14, B-Natriuretic Peptide 941.8 H 05/03/23 17:50: Hemoglobin A1c 11.0 H 05/03/23 18:18: POC Glucose 275 H 05/03/23 21:02: POC Glucose 315 H 05/04/23 05:10: WBC 5.7, RBC 4.53, Hgb 11.8 L, Hct 37.5, MCV 82.8, MCH 26.0 L, MCHC 31.5 L, RDW Std Deviation 41.9, RDW Coeff of Spencer 14.2, Plt Count 184, MPV 10.5, Sodium 138, Potassium 3.0 L, Chloride 105, Carbon Dioxide 28.0, Anion Gap 5, BUN 11, Creatinine 0.64, Estim Creat Clear Calc 101.13, Est GFR (MDRD) Af Amer 127, Est GFR (MDRD) Non-Af 105, BUN/Creatinine Ratio 17.3, Glucose 133 H, Calcium 8.2 L, Magnesium 2.1 05/04/23 06:11: POC Glucose 134 H Micro: Microbiology 05/03/23 14:25 Nasal Secretion SARS-CoV-2 & FLU Antigen (Rapid) - Final Radiography Diagnostic Testing: Radiology Impression Chest X-Ray 05/03/23 13:56 IMPRESSION: Mild degree of vascular congestion with atelectasis and/or infiltrate in the right middle lobe. Electronically Signed: Ryan Tejeda MD at 15:00 EST Reading Location ID and State: [address] [place] [address] , Service support , Rhythm Strip Rhythm Strip: Sinus Rhythm Rate: 97 Ectopy: None Physical Exam Narrative General: Alert, oriented, patient feeling sick to her stomach HEENT: Atraumatic, normocephalic Eyes: Anicteric, normal conjunctiva, extraocular movements grossly intact Neck: Supple Respiratory: Diminished at the bases, normal respiratory effort Cardiovascular: Regular rate GI: Soft, nontender, nondistended Musculoskeletal: Moving all extremities Neuro: No overt focal neurological deficits Skin: No rashes appreciated Psych: Overall cooperative Assessment & Plan Assessment/Plan (1) CHF (congestive heart failure): (2) Hyperglycemia due to diabetes mellitus: PLAN: Plan Patient is a 52-year-old female who presented to [facility] ED on 05/03/2023 with worsening shortness of breath. 1. Severe combined heart failure with mild CHF exacerbation, history of severe CAD of LAD, history of PAD s/p stenting of right femoral artery in 08/2022, acute hypoxia with history of COPD Follows with cardiology, last office visit on 03/22/2023. Patient had echo in 08/2022 that showed an EF of 15%, severe hypokinesis/akinesis of the majority of her left ventricle. She had known premature CAD dating back to 2013. Has had multiple heart cath done but does not appear that she has had any stents placed. Last left heart cath in 2018 showed long segment of severe diffuse narrowing in proximal and midportion of LAD, normal right and circumflex coronary arteries. Echo in 2019 showed an EF of 30 to 35% with similar areas of hypokinesis in comparison to most recent echo. Patient with mild volume overload on this admission. Chest x-ray showed mild degree of vascular congestion, +2-3 lower extremity pitting edema, BNP 941, patient requiring 3 L nasal cannula to maintain oxygen saturations greater than 88%. Does not wear oxygen at baseline. No wheezing noted on exam. ? Admit under inpatient status to PCU. Cardiology consulted. Will start IV Lasix 40 mg twice daily for now. Repeat echo ordered. Wean supplemental oxygen as able. Continue home aspirin, statin, Plavix. Continue home Coreg, will hold home lisinopril for now, restart when able. Hold home dapagliflozin. -05/04: BNP on admit 941. Cardiology evaluated, continue IV Lasix, beta-linda, repeat echo ordered and redemonstrates EF of 15% with wall motion abnormalities as well as stage III diastolic dysfunction, patient started on Entresto and spironolactone. BP slightly low overnight and with new medication additions beta-linda was decreased to allow for medical optimization, continue to adjust. Monitor respiratory status, daily weights, I's and O's 2. Poorly controlled type 2 diabetes with hyperglycemia BG 323 on admit. Last A1c of 11.5% in 08/2022, A1c of greater than 14% in 08/2021. Home regimen of insulin glargine 25 units twice daily, Trulicity 3 mg weekly, dapagliflozin 10 mg daily. Patient reports compliance with this regimen. A1c of 11.0% on this admission. ? Will start Lantus 20 units twice daily with high-dose sliding scale insulin for now, adjust as needed. -05/04: A1c is 11, there has been query of compliance previously, on 20 of Lantus twice daily patient's a.m. glucose is 134 so we will continue present regimen and adjust as indicated 3. Debility Patient lives at home with her daughter. States she has generally been able to take care of herself without issue, but she has been feeling progressively weaker over the last several weeks to months. ? PT/OT/case management consulted. -05/04: PT/OT Chronic medical conditions: ? Hypertension, hyperlipidemia: See medication recommendations as noted above. ? Anxiety/depression: Continue home Lexapro. ? Current smoker: Attempting to quit, using a 21 mg nicotine patch at home and smoking 5 to 10 cigarettes a day per her report. Continue nicotine patch while inpatient. ? GERD: Continue home PPI. ? History of substance abuse: Previous history of opiate dependence for pain. Not currently on opiates at home. Strongly recommend avoiding opiates for pain management while inpatient. DVT prophylaxis: Lovenox CODE STATUS: Full code, verified Total clinical time spent by myself addressing the patient's medical issues, reviewing all the data, and collaborating with patient's care team: 35 minutes. Charges/Coding Visit Charges Inpatient E&M: 68560 Subs Hosp L2
[2023-05-04 08:28] VITALS: BP 119/75; PULSE 82; RESP 17; TEMP 36.6; O2SAT 100
[2023-05-04] MEDS: Aspirin 81 MG TAB.CHEW PO (08:35)
[2023-05-04 09:16] LABS: Troponin-I HS 13 pg/mL (3.0-54.0)
[2023-05-04 09:56] VITALS: BP 119/76; PULSE 87; RESP 17; TEMP 36.4; O2SAT 98
--- NOTE | 2023-05-04 09:57 | CASEMGMT ---
Social Work As per initial dry kiln feeder, pt does not have LW/POA and declined further information. MARTIN Marc
[2023-05-04] MEDS: SACUBITRIL/VALSARTAN 24/26 MG TABLET 1 EACH PO ×2 (10:01→22:19)
[2023-05-04] MEDS: Spironolactone 25 MG Tablet PO (10:01)
[2023-05-04] MEDS: Cholecalciferol (VIT D3) 25 MCG TABLET (1,000 UNITS) PO (10:02)
[2023-05-04] MEDS: Escitalopram Oxalate 10 MG Tablet PO (10:02)
[2023-05-04] MEDS: Calcium (Elemental) 500 MG Tablet PO (10:02)
[2023-05-04] MEDS: Atorvastatin Calcium 80 MG Tablet PO (10:02)
[2023-05-04] MEDS: Pantoprazole Sodium 40 MG Tablet PO (10:02)
[2023-05-04] MEDS: Enoxaparin 40 MG/0.4 ML Syringe SC (10:02)
[2023-05-04] MEDS: Insulin Glargine-YFGN 100 UNIT/ML Pen 20 UNIT SC ×2 (10:03→18:35)
[2023-05-04] MEDS: Furosemide 40 MG/4 ML Vial IV ×2 (10:04→18:34)
[2023-05-04] MEDS: Potassium Chloride Oral Tablet 20 MEQ 40 MEQ PO (10:25)
--- NOTE | 2023-05-04 11:45 | CASEMGMT ---
CHAYITO BARKLEY Face to Face with patient for initial transition planning/care coordination assessment. RN FILIPPO introduced self and role at [facility]. Patient lying in bed, alert and oriented. Patient willing to participate in assessment and is able to answer all questions appropriately. Care providers, pharmacy, and demographics verified. Patient wishes to discharge home, denies need for home health at this time. Patient states she has no further needs or concerns at this time. CM to follow for discharge planning needs that may arise. PCP: Ama Neff Specialists: Daryl sexual health physician Preferred Pharmacy: [facility] Insurance: [facility] Prescription Benefit: yes Living Will/HPOA: none LNOK: daughter Living Arrangements: Patient lives with daughter in a 2 story apartment. Patient states she is independent at home and able to ambulate stairs. Transportation: mother DME/HHC: Patient has raised toilet, cane, walker, glucometer at home. Patient has been to SNF in the past and has had [facility] HHC in the past. Will monitor for home oxygen at discharge. Patient states she prefers [employer] for DME. Disposition Plan: Patient to discharge home with family support and follow-up plans in place. Will monitor for home oxygen. Paula HAWKINS, RN, CM
[2023-05-04] MEDS: Insulin Lispro 100 UNIT/ML INSULN.PEN SC ×2 (12:07→16:50)
[2023-05-04 12:26] LABS: Bedside Glucose 222 mg/dL (74-106)
[2023-05-04] MEDS: Senna/Docusate Sodium 1 Tablet 2 TABLET PO ×2 (16:09→22:18)
[2023-05-04 16:10] VITALS: BP 116/77; PULSE 88; RESP 17; TEMP 36.5; O2SAT 97
[2023-05-04] MEDS: Carvedilol 12.5 MG Tablet PO (16:51)
[2023-05-04 17:11] LABS: Bedside Glucose 238 mg/dL (74-106)
[2023-05-04 22:15] VITALS: BP 104/69; PULSE 81; RESP 18; TEMP 36.8; O2SAT 99
[2023-05-04] MEDS: MELATONIN 3 MG TABLET PO (22:19)
[2023-05-05 00:08] LABS: Bedside Glucose 104 mg/dL (74-106)
[2023-05-05 04:10] VITALS: BP 102/68; PULSE 73; RESP 16; TEMP 36.6; O2SAT 96
[2023-05-05 05:48] LABS: Absolute Lymphocyte Count 1.49 X10^3/uL (0.83-4.51); Absolute Neutrophil Count 3.9 X10^3/uL (2.0-7.7); Basophil# 0.07 X10^3/uL; Basophil% 1.1 % (0-1); Eosinophil# 0.41 X10^3/uL; Eosinophils% 6.5 % (0-5); Hematocrit 39.4 % (37-47); Hemoglobin 12.4 g/dL (12.0-15.0); Lymphocyte # 1.49 X10^3/ul (0.83-4.51); Lymphocyte % 23.6 % (19-41); Mean Corp Hgb Conc 31.5 g/dL (32-36); Mean Corpuscular Hgb 26.1 pg (27.0-32.0); Mean Corpuscular Volume 82.9 fL (81-99); Mean Platelet Vol. 10.1 fl (6.2-12.0); Monocyte# 0.47 X10^3/uL; Monocyte% 7.4 % (0-10); NRBC Flagged by Analyzer 0 % (0-5); Neutrophil # 3.87 X10^3/uL (2.7-7.7); Neutrophil % 61.2 % (47-70); Platelet Count 188 K/mm3 (150-450); RBC Distribution Width SD 42.4 fl (35.1-43.9); Red Blood Count 4.75 M/mm3 (4.2-5.4); White Blood Count 6.3 K/mm3 (4.4-11.0)
[2023-05-05 06:00] VITALS: BMI 26.4
[2023-05-05 06:12] LABS: Anion Gap 5 (5-15); BUN 13 mg/dL (7-18); BUN/Creat Ratio 22.3 RATIO (10-20); Calcium,Total 8.6 mg/dL (8.5-10.1); Chloride 104 mmol/L (98-107); Creatinine, Serum 0.58 mg/dL (0.55-1.02); EST Glomerular Filtration Rate 115 mL/min (>60); Est Glom Filt Rate - Afr Amer 140 mL/min (>60); Estimated Creatinine Clearance 111.59 ml/min; Glucose 93 mg/dL (74-106); Potassium 3.6 mmol/L (3.5-5.1); Sodium Level 139 mmol/L (136-145)
[2023-05-05] MEDS: cycloBENZAPRine HCl 10 MG Tablet PO ×2 (06:45→23:37)
[2023-05-05] MEDS: 0.9% Saline Lock 10 ML Syringe IV ×3 (06:46→17:05)
[2023-05-05] MEDS: Ondansetron 4 MG/2 ML Vial IV ×2 (06:46→17:05)
[2023-05-05] MEDS: Acetaminophen 500 MG Tablet 1000 MG PO ×2 (06:46→23:33)
[2023-05-05 07:08] LABS: Bedside Glucose 83 mg/dL (74-106)
[2023-05-05 07:53] VITALS: O2SAT 96
[2023-05-05 09:45] VITALS: BP 95/60; PULSE 85; RESP 17; TEMP 36.6; O2SAT 96
--- NOTE | 2023-05-05 09:58 | PCM.PN.HOSP ---
Reason for Visit Reason for Visit: Diagnoses Type 2 diabetes mellitus with hyperglycemia (05/03/23) Heart failure, unspecified (05/03/23) Personal history of other diseases of the circulatory system (05/03/23) Subjective Subjective Breathing improving, remains on IV Lasix, nausea improving Objective Data Objective Data Vital Signs: Vital Signs Temp Pulse Resp BP Pulse Ox O2 Del Method O2 Flow Rate 97.8 F 73 16 102/68 96 Nasal Cannula 5 05/05/23 04:10 05/05/23 04:10 05/05/23 04:10 05/05/23 04:10 05/05/23 07:53 05/05/23 07:53 05/05/23 07:53 Oxygen Flow Rate (L/min) 5 Oxygen Delivery Method Nasal Cannula Weight: 76.5 kg Body Mass Index (BMI) 26.4 Intake & Output: Intake and Output for Last 24 Hours 05/03/23 05/04/23 05/05/23 23:59 23:59 23:59 Intake Total 240 / 480 2300 / 2300 240 / 240 Output Total 200 / 200 Balance 240 / 280 2100 / 2100 240 / 240 Lab / Micro Data 05/05/23 04:56 05/05/23 04:56 Labs: Laboratory Results - last 24 hr 05/04/23 12:05: POC Glucose 222 H 05/04/23 16:48: POC Glucose 238 H 05/04/23 22:16: POC Glucose 104 05/05/23 04:56: WBC 6.3, RBC 4.75, Hgb 12.4, Hct 39.4, MCV 82.9, MCH 26.1 L, MCHC 31.5 L, RDW Std Deviation 42.4, RDW Coeff of [place] 14.0, Plt Count 188, MPV 10.1, Immature Gran % (Auto) 0.200, Neut % (Auto) 61.2, Lymph % (Auto) 23.6, [place] % (Auto) 7.4, Eos % (Auto) 6.5 H, Baso % (Auto) 1.1 H, Absolute Neuts (auto) 3.9, Absolute Lymphs (auto) 1.49, Nucleated RBC % 0, Sodium 139, Potassium 3.6, Chloride 104, Carbon Dioxide 30.0, Anion Gap 5, BUN 13, Creatinine 0.58, Estim Creat Clear Calc 111.59, Est GFR (MDRD) Af Amer 140, Est GFR (MDRD) Non-Af 115, BUN/Creatinine Ratio 22.3 H, Glucose 93, Calcium 8.6 05/05/23 06:48: POC Glucose 83 Micro: Microbiology 05/03/23 14:25 Nasal Secretion SARS-CoV-2 & FLU Antigen (Rapid) - Final Radiography Diagnostic Testing: Radiology Impression Echocardiogram 05/03/23 17:56 Interpretation Summary The left ventricular ejection fraction is 15 %. Severe segmental systolic dysfunction (see wall motion). Stage 3 diastolic dysfunction. Normal LV size. Moderate (2+) eccentric mitral valve insufficiency. Ordering Physician: Jonas Justin Referring Physician: [facility] Performed By: Jyoti Pandey, EDMOND, RVT Rhythm Strip Rhythm Strip: Sinus Rhythm Rate: 97 Ectopy: None Physical Exam Narrative General: Alert, oriented, no apparent distress HEENT: Atraumatic, normocephalic Eyes: Anicteric, normal conjunctiva, extraocular movements grossly intact Neck: Supple Respiratory: Respiratory effort improving, aeration improving Cardiovascular: Regular rate GI: Soft, nontender, nondistended Musculoskeletal: Moving all extremities Neuro: No overt focal neurological deficits Skin: No rashes appreciated Psych: Cooperative Assessment & Plan Assessment/Plan (1) CHF (congestive heart failure): (2) Hyperglycemia due to diabetes mellitus: PLAN: Plan Patient is a 52-year-old female who presented to [facility] ED on 05/03/2023 with worsening shortness of breath. 1. Severe combined heart failure with mild CHF exacerbation, history of severe CAD of LAD, history of PAD s/p stenting of right femoral artery in 08/2022, acute hypoxia with history of COPD Follows with cardiology, last office visit on 03/22/2023. Patient had echo in 08/2022 that showed an EF of 15%, severe hypokinesis/akinesis of the majority of her left ventricle. She had known premature CAD dating back to 2013. Has had multiple heart cath done but does not appear that she has had any stents placed. Last left heart cath in 2018 showed long segment of severe diffuse narrowing in proximal and midportion of LAD, normal right and circumflex coronary arteries. Echo in 2019 showed an EF of 30 to 35% with similar areas of hypokinesis in comparison to most recent echo. Patient with mild volume overload on this admission. Chest x-ray showed mild degree of vascular congestion, +2-3 lower extremity pitting edema, BNP 941, patient requiring 3 L nasal cannula to maintain oxygen saturations greater than 88%. Does not wear oxygen at baseline. No wheezing noted on exam. ? Admit under inpatient status to PCU. Cardiology consulted. Will start IV Lasix 40 mg twice daily for now. Repeat echo ordered. Wean supplemental oxygen as able. Continue home aspirin, statin, Plavix. Continue home Coreg, will hold home lisinopril for now, restart when able. Hold home dapagliflozin. -05/04: BNP on admit 941. Cardiology evaluated, continue IV Lasix, beta-linda, repeat echo ordered and redemonstrates EF of 15% with wall motion abnormalities as well as stage III diastolic dysfunction, patient started on Entresto and spironolactone. BP slightly low overnight and with new medication additions beta-linda was decreased to allow for medical optimization, continue to adjust. Monitor respiratory status, daily weights, I's and O's -05/05: Cardiology evaluated, patient improving, continue present management 2. Poorly controlled type 2 diabetes with hyperglycemia BG 323 on admit. Last A1c of 11.5% in 08/2022, A1c of greater than 14% in 08/2021. Home regimen of insulin glargine 25 units twice daily, Trulicity 3 mg weekly, dapagliflozin 10 mg daily. Patient reports compliance with this regimen. A1c of 11.0% on this admission. ? Will start Lantus 20 units twice daily with high-dose sliding scale insulin for now, adjust as needed. -05/04: A1c is 11, there has been query of compliance previously, on 20 of Lantus twice daily patient's a.m. glucose is 134 so we will continue present regimen and adjust as indicated -05/05: Continue to monitor and adjust glucose 3. Debility Patient lives at home with her daughter. States she has generally been able to take care of herself without issue, but she has been feeling progressively weaker over the last several weeks to months. ? PT/OT/case management consulted. -05/04: PT/OT Chronic medical conditions: ? Hypertension, hyperlipidemia: See medication recommendations as noted above. ? Anxiety/depression: Continue home Lexapro. ? Current smoker: Attempting to quit, using a 21 mg nicotine patch at home and smoking 5 to 10 cigarettes a day per her report. Continue nicotine patch while inpatient. ? GERD: Continue home PPI. ? History of substance abuse: Previous history of opiate dependence for pain. Not currently on opiates at home. Strongly recommend avoiding opiates for pain management while inpatient. DVT prophylaxis: Lovenox CODE STATUS: Full code, verified Total clinical time spent by myself addressing the patient's medical issues, reviewing all the data, and collaborating with patient's care team: 35 minutes. Charges/Coding Visit Charges Inpatient E&M: 42471 Subs Hosp L2
[2023-05-05] MEDS: Aspirin 81 MG TAB.CHEW PO (10:04)
[2023-05-05] MEDS: Carvedilol 12.5 MG Tablet PO ×2 (10:05→17:05)
[2023-05-05] MEDS: Spironolactone 25 MG Tablet PO (10:05)
[2023-05-05] MEDS: Insulin Glargine-YFGN 100 UNIT/ML Pen 20 UNIT SC (10:05)
[2023-05-05] MEDS: SACUBITRIL/VALSARTAN 24/26 MG TABLET 1 EACH PO ×2 (10:05→21:48)
[2023-05-05] MEDS: Atorvastatin Calcium 80 MG Tablet PO (10:06)
[2023-05-05] MEDS: Enoxaparin 40 MG/0.4 ML Syringe SC (10:06)
[2023-05-05] MEDS: Escitalopram Oxalate 10 MG Tablet PO (10:06)
[2023-05-05] MEDS: Furosemide 40 MG/4 ML Vial IV ×2 (10:06→17:06)
[2023-05-05] MEDS: Senna/Docusate Sodium 1 Tablet 2 TABLET PO ×2 (10:07→21:48)
[2023-05-05] MEDS: Cholecalciferol (VIT D3) 25 MCG TABLET (1,000 UNITS) PO (10:07)
[2023-05-05] MEDS: Pantoprazole Sodium 40 MG Tablet PO (10:07)
[2023-05-05] MEDS: Calcium (Elemental) 500 MG Tablet PO (10:07)
--- NOTE | 2023-05-05 11:02 | PCM.PN.CARD ---
Subjective Subjective Patient seen and evaluated. Appears to be doing better today. Objective Data Vital Signs: Vital Signs Temp Pulse Resp BP Pulse Ox O2 Del Method O2 Flow Rate 97.8 F 73 16 102/68 96 Nasal Cannula 5 05/05/23 04:10 05/05/23 04:10 05/05/23 04:10 05/05/23 04:10 05/05/23 07:53 05/05/23 07:53 05/05/23 07:53 Oxygen Flow Rate (L/min) 5 Oxygen Delivery Method Nasal Cannula Weight: 168 lb 10.458 oz Body Mass Index (BMI) 26.4 Intake & Output: Intake and Output for Last 24 Hours 05/03/23 05/04/23 05/05/23 23:59 23:59 23:59 Intake Total 240 / 480 2300 / 2300 240 / 240 Output Total 200 / 200 Balance 240 / 280 2100 / 2100 240 / 240 Lab / Micro Data 05/05/23 04:56 05/05/23 04:56 Labs: Laboratory Results - last 24 hr 05/04/23 12:05: POC Glucose 222 H 05/04/23 16:48: POC Glucose 238 H 05/04/23 22:16: POC Glucose 104 05/05/23 04:56: WBC 6.3, RBC 4.75, Hgb 12.4, Hct 39.4, MCV 82.9, MCH 26.1 L, MCHC 31.5 L, RDW Std Deviation 42.4, RDW Coeff of [place] 14.0, Plt Count 188, MPV 10.1, Immature Gran % (Auto) 0.200, Neut % (Auto) 61.2, Lymph % (Auto) 23.6, [place] % (Auto) 7.4, Eos % (Auto) 6.5 H, Baso % (Auto) 1.1 H, Absolute Neuts (auto) 3.9, Absolute Lymphs (auto) 1.49, Nucleated RBC % 0, Sodium 139, Potassium 3.6, Chloride 104, Carbon Dioxide 30.0, Anion Gap 5, BUN 13, Creatinine 0.58, Estim Creat Clear Calc 111.59, Est GFR (MDRD) Af Amer 140, Est GFR (MDRD) Non-Af 115, BUN/Creatinine Ratio 22.3 H, Glucose 93, Calcium 8.6 05/05/23 06:48: POC Glucose 83 Rhythm Strip Rhythm Strip: Sinus Rhythm Rate: 97 Ectopy: None Cardiology Labs/Tests 05/05/23 04:56: WBC 6.3, RBC 4.75, Hgb 12.4, Hct 39.4, MCV 82.9, MCH 26.1 L, MCHC 31.5 L, Plt Count 188, MPV 10.1, Immature Gran % (Auto) 0.200, Neut % (Auto) 61.2, Lymph % (Auto) 23.6, [place] % (Auto) 7.4, Eos % (Auto) 6.5 H, Baso % (Auto) 1.1 H, Absolute Neuts (auto) 3.9, Nucleated RBC % 0, Sodium 139, Potassium 3.6, Chloride 104, Carbon Dioxide 30.0, Anion Gap 5, BUN 13, Creatinine 0.58, Est GFR (MDRD) Af Amer 140, Est GFR (MDRD) Non-Af 115, BUN/Creatinine Ratio 22.3 H, Glucose 93, Calcium 8.6 Rhythm: EKG: ECHO: Stress Test: Cardiac Cath: PCI: CT Surgery: Holter monitor: EPS: PPM: CXR: Chest CT Scan: Radiography Diagnostic Testing: Radiology Impression Echocardiogram 05/03/23 17:56 Interpretation Summary The left ventricular ejection fraction is 15 %. Severe segmental systolic dysfunction (see wall motion). Stage 3 diastolic dysfunction. Normal LV size. Moderate (2+) eccentric mitral valve insufficiency. Ordering Physician: Jonas Justin Referring Physician: [facility] Performed By: Jyoti Pandey, EDMOND, RVT Physical Exam Const alert, oriented x3 and no apparent distress General Appearance: cooperative HEENT hearing grossly normal bilaterally Head and Scalp: atraumatic Eyes EOMs intact bilaterally Neck General: normal visual inspection Chest inspection of chest normal and palpation of chest normal Resp normal respiratory effort Auscultation: clear to auscultation bilaterally Cardio regular rate, regular rhythm, S1 normal heart sound and S2 normal heart sound Jugular Venous Distention: JVD Palpation: palpable S3 GI normal to inspection, nondistended, normoactive bowel sounds Extremity normal capillary refill General Extremity: edema Peripheral Pulses: Yes pulses 2+ throughout and femoral pulses present Skin no rashes or lesions noted Neuro oriented x3 and CN's II-XII intact bilaterally Psych Appearance: grossly normal and appropriate Assessment & Plan Assessment/Plan (1) CHF (congestive heart failure): PLAN: She does have evidence of congestive heart failure which is systolic [place] Heart Association class III. It appears that this is a combination of coronary artery disease and hypertensive cardiomyopathy. This has been longstanding The particular exacerbation is not entirely clear at this time. I would recommend the following: Continue current dose of beta-linda Intravenous diuretics with IV Lasix Start oral spironolactone Start Entresto Echocardiogram demonstrated an ejection fraction of 15% which is unchanged from before. Dietary counseling We will review at outpatient. If ejection fraction is still reduced will consider an implantable defibrillator. With her incomplete left bundle branch block will consider whether she would be a candidate for a TRUCK WASHER-D. 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 We will continue to manage the above with medical therapy. He has not had any angina. Thank you for allowing me to participate in the care of your patient. Please don't hesitate to call if any issues arise.
[2023-05-05] MEDS: Insulin Lispro 100 UNIT/ML INSULN.PEN SC (12:07)
[2023-05-05 12:26] LABS: Bedside Glucose 175 mg/dL (74-106)
[2023-05-05 15:28] VITALS: BP 93/67; PULSE 83; RESP 17; TEMP 36.6; O2SAT 96
[2023-05-05 17:13] LABS: Bedside Glucose 89 mg/dL (74-106)
[2023-05-05 21:47] VITALS: BP 101/65; PULSE 81; RESP 16; TEMP 36.6; O2SAT 96
[2023-05-05] MEDS: MELATONIN 3 MG TABLET PO (21:52)
[2023-05-05 22:11] LABS: Bedside Glucose 141 mg/dL (74-106)
[2023-05-06 03:33] VITALS: BP 110/72; PULSE 81; RESP 16; TEMP 36.6; O2SAT 98
[2023-05-06] MEDS: 0.9% Saline Lock 10 ML Syringe IV ×2 (03:34→22:27)
[2023-05-06] MEDS: Ondansetron 4 MG/2 ML Vial IV ×2 (03:34→22:25)
[2023-05-06 06:00] VITALS: BMI 26.3
[2023-05-06 06:50] LABS: Bedside Glucose 96 mg/dL (74-106)
[2023-05-06 07:18] LABS: Absolute Lymphocyte Count 1.59 X10^3/uL (0.83-4.51); Absolute Neutrophil Count 4.1 X10^3/uL (2.0-7.7); Basophil# 0.06 X10^3/uL; Basophil% 0.9 % (0-1); Eosinophil# 0.27 X10^3/uL; Eosinophils% 4.1 % (0-5); Hematocrit 38.8 % (37-47); Hemoglobin 12.6 g/dL (12.0-15.0); Lymphocyte # 1.59 X10^3/ul (0.83-4.51); Lymphocyte % 24.3 % (19-41); Mean Corp Hgb Conc 32.5 g/dL (32-36); Mean Corpuscular Hgb 26.6 pg (27.0-32.0); Mean Platelet Vol. 10.4 fl (6.2-12.0); Monocyte# 0.49 X10^3/uL; Monocyte% 7.5 % (0-10); NRBC Flagged by Analyzer 0 % (0-5); Neutrophil % 62.7 % (47-70); Platelet Count 213 K/mm3 (150-450); Red Blood Count 4.73 M/mm3 (4.2-5.4); White Blood Count 6.5 K/mm3 (4.4-11.0)
[2023-05-06 07:59] LABS: Anion Gap 3 (5-15); BUN 14 mg/dL (7-18); Calcium,Total 8.8 mg/dL (8.5-10.1); Chloride 102 mmol/L (98-107); Creatinine, Serum 0.67 mg/dL (0.55-1.02); EST Glomerular Filtration Rate 99 mL/min (>60); Est Glom Filt Rate - Afr Amer 119 mL/min (>60); Glucose 98 mg/dL (74-106); Potassium 3.4 mmol/L (3.5-5.1); Sodium Level 136 mmol/L (136-145)
--- NOTE | 2023-05-06 08:03 | PN.HOSP_ITS ---
Reason for Visit Reason for Visit: Diagnoses Type 2 diabetes mellitus with hyperglycemia (05/03/23) Heart failure, unspecified (05/03/23) Personal history of other diseases of the circulatory system (05/03/23) Subjective Subjective Breathing is improving, patient still reports the pain going to her back and is also very distressed but she has not had a bowel movement in several days and is very uncomfortable, patient tearful Objective Data Objective Data Vital Signs: Vital Signs Temp Pulse Resp BP Pulse Ox O2 Del Method O2 Flow Rate 97.9 F 81 16 110/72 98 Room Air 5 05/06/23 03:33 05/06/23 03:33 05/06/23 03:33 05/06/23 03:33 05/06/23 03:33 05/06/23 03:44 05/05/23 07:53 Oxygen Flow Rate (L/min) 5 Oxygen Delivery Method Room Air Weight: 76.3 kg Body Mass Index (BMI) 26.3 Intake & Output: Intake and Output for Last 24 Hours 05/04/23 05/05/23 05/06/23 23:59 23:59 23:59 Intake Total 2300 / 2300 720 / 720 Output Total 200 / 200 Balance 2100 / 2100 720 / 720 Lab / Micro Data 05/06/23 05:22 05/06/23 05:22 Labs: Laboratory Results - last 24 hr 05/05/23 12:06: POC Glucose 175 H 05/05/23 16:54: POC Glucose 89 05/05/23 21:46: POC Glucose 141 H 05/06/23 05:22: WBC 6.5, RBC 4.73, Hgb 12.6, Hct 38.8, MCV 82.0, MCH 26.6 L, MCHC 32.5, RDW Std Deviation 41.0, RDW Coeff of [place] 14.0, Plt Count 213, MPV 10.4, Immature Gran % (Auto) 0.500, Neut % (Auto) 62.7, Lymph % (Auto) 24.3, [place] % (Auto) 7.5, Eos % (Auto) 4.1, Baso % (Auto) 0.9, Absolute Neuts (auto) 4.1, Absolute Lymphs (auto) 1.59, Nucleated RBC % 0, Sodium 136, Potassium 3.4 L , Chloride 102, Carbon Dioxide 31.0, Anion Gap 3 L, BUN 14, Creatinine 0.67, Estim Creat Clear Calc 96.60, Est GFR (MDRD) Af Amer 119, Est GFR (MDRD) Non-Af 99, BUN/Creatinine Ratio 21.0 H, Glucose 98, Calcium 8.8 05/06/23 06:31: POC Glucose 96 Micro: Microbiology 05/03/23 14:25 Nasal Secretion SARS-CoV-2 & FLU Antigen (Rapid) - Final Rhythm Strip Rhythm Strip: Sinus Rhythm Rate: 97 Ectopy: None Physical Exam Narrative General: Alert, oriented, no apparent distress HEENT: Atraumatic, normocephalic Eyes: Anicteric, normal conjunctiva, extraocular movements grossly intact Neck: Supple Respiratory: Respiratory effort improving, aeration improving Cardiovascular: Regular rate GI: Soft, no rebound, guarding, rigidity, nondistended Musculoskeletal: Moving all extremities Neuro: No overt focal neurological deficits Skin: No rashes appreciated Psych: Very tearful Assessment & Plan Assessment/Plan (1) CHF (congestive heart failure): (2) Hyperglycemia due to diabetes mellitus: PLAN: Plan Patient is a 52-year-old female who presented to [facility] ED on 05/03/2023 with worsening shortness of breath. 1. Severe combined heart failure with mild CHF exacerbation, history of severe CAD of LAD, history of PAD s/p stenting of right femoral artery in 08/2022, acute hypoxia with history of COPD Follows with cardiology, last office visit on 03/22/2023. Patient had echo in 08/2022 that showed an EF of 15%, severe hypokinesis/akinesis of the majority of her left ventricle. She had known premature CAD dating back to 2014. Has had multiple heart cath done but does not appear that she has had any stents placed. Last left heart cath in 2018 showed long segment of severe diffuse narrowing in proximal and midportion of LAD, normal right and circumflex coronary arteries. Echo in 2019 showed an EF of 30 to 35% with similar areas of hypokinesis in comparison to most recent echo. Patient with mild volume overload on this admission. Chest x-ray showed mild degree of vascular congestion, +2-3 lower extremity pitting edema, BNP 941, patient requiring 3 L nasal cannula to maintain oxygen saturations greater than 88%. Does not wear oxygen at baseline. No wheezing noted on exam. ? Admit under inpatient status to PCU. Cardiology consulted. Will start IV Lasix 40 mg twice daily for now. Repeat echo ordered. Wean supplemental oxygen as able. Continue home aspirin, statin, Plavix. Continue home Coreg, will hold home lisinopril for now, restart when able. Hold home dapagliflozin. -05/04: BNP on admit 941. Cardiology evaluated, continue IV Lasix, beta- linda, repeat echo ordered and redemonstrates EF of 15% with wall motion abnormalities as well as stage III diastolic dysfunction, patient started on Entresto and spironolactone. BP slightly low overnight and with new medication additions beta-linda was decreased to allow for medical optimization, continue to adjust. Monitor respiratory status, daily weights, I's and O's -05/05: Cardiology evaluated, patient improving, continue present management -05/06: Patient transition to p.o. Lasix, if patient tolerates this and respiratory status stable can likely DC in the a.m. 2. Poorly controlled type 2 diabetes with hyperglycemia BG 323 on admit. Last A1c of 11.5% in 08/2022, A1c of greater than 14% in 08/2021. Home regimen of insulin glargine 25 units twice daily, Trulicity 3 mg weekly, dapagliflozin 10 mg daily. Patient reports compliance with this regimen. A1c of 11.0% on this admission. ? Will start Lantus 20 units twice daily with high-dose sliding scale insulin for now, adjust as needed. -05/04: A1c is 11, there has been query of compliance previously, on 20 of Lantus twice daily patient's a.m. glucose is 134 so we will continue present regimen and adjust as indicated -05/05: Continue to monitor and adjust glucose -05/06: Glucose under tighter control and is necessary for acute hospitalization so we will decrease slightly to avoid hypoglycemia 3. Debility Patient lives at home with her daughter. States she has generally been able to take care of herself without issue, but she has been feeling progressively weaker over the last several weeks to months. ? PT/OT/case management consulted. -05/04: PT/OT -05/06: Continue to encourage ambulation #Constipation -Patient very anxious and reports feeling uncomfortable she has not had a bowel movement in a couple of days despite senna docusate, agreeable to suppository Chronic medical conditions: ? Hypertension, hyperlipidemia: See medication recommendations as noted above. ? Anxiety/depression: Continue home Lexapro. ? Current smoker: Attempting to quit, using a 21 mg nicotine patch at home and smoking 5 to 10 cigarettes a day per her report. Continue nicotine patch while inpatient. ? GERD: Continue home PPI. ? History of substance abuse: Previous history of opiate dependence for pain. Not currently on opiates at home. Strongly recommend avoiding opiates for pain management while inpatient. DVT prophylaxis: Lovenox CODE STATUS: Full code, verified Total clinical time spent by myself addressing the patient's medical issues, reviewing all the data, and collaborating with patient's care team: 35 minutes. Charges/Coding Visit Charges Inpatient E&M: 02238 Subs Hosp L2
[2023-05-06 09:16] VITALS: BP 96/71; PULSE 85; RESP 16; TEMP 36.6; O2SAT 96
[2023-05-06] MEDS: Carvedilol 12.5 MG Tablet PO ×2 (09:26→17:49)
[2023-05-06] MEDS: Aspirin 81 MG TAB.CHEW PO (09:26)
[2023-05-06] MEDS: Potassium Chloride Oral Tablet 20 MEQ 40 MEQ PO (09:27)
[2023-05-06] MEDS: Acetaminophen 500 MG Tablet 1000 MG PO ×2 (09:27→22:24)
--- NOTE | 2023-05-06 10:30 | PN.CARD_ITS ---
Subjective Subjective Patient seen and evaluated. Appears to be sleeping soundly and flat in bed on no oxygen. Objective Data Vital Signs: Vital Signs Temp Pulse Resp BP Pulse Ox O2 Del Method O2 Flow Rate 97.8 F 85 16 96/71 96 Room Air 5 05/06/23 09:16 05/06/23 09:16 05/06/23 09:16 05/06/23 09:16 05/06/23 09:16 05/06/23 09:16 05/05/23 07:53 Oxygen Flow Rate (L/min) 5 Oxygen Delivery Method Room Air Weight: 168 lb 3.403 oz Body Mass Index (BMI) 26.3 Intake & Output: Intake and Output for Last 24 Hours 05/04/23 05/05/23 05/06/23 23:59 23:59 23:59 Intake Total 2300 / 2300 720 / 720 Output Total 200 / 200 Balance 2100 / 2100 720 / 720 Lab / Micro Data 05/06/23 05:22 05/06/23 05:22 Labs: Laboratory Results - last 24 hr 05/05/23 12:06: POC Glucose 175 H 05/05/23 16:54: POC Glucose 89 05/05/23 21:46: POC Glucose 141 H 05/06/23 05:22: WBC 6.5, RBC 4.73, Hgb 12.6, Hct 38.8, MCV 82.0, MCH 26.6 L, MCHC 32.5, RDW Std Deviation 41.0, RDW Coeff of [place] 14.0, Plt Count 213, MPV 10.4, Immature Gran % (Auto) 0.500, Neut % (Auto) 62.7, Lymph % (Auto) 24.3, [place] % (Auto) 7.5, Eos % (Auto) 4.1, Baso % (Auto) 0.9, Absolute Neuts (auto) 4.1, Absolute Lymphs (auto) 1.59, Nucleated RBC % 0, Sodium 136, Potassium 3.4 L , Chloride 102, Carbon Dioxide 31.0, Anion Gap 3 L, BUN 14, Creatinine 0.67, Estim Creat Clear Calc 96.60, Est GFR (MDRD) Af Amer 119, Est GFR (MDRD) Non-Af 99, BUN/Creatinine Ratio 21.0 H, Glucose 98, Calcium 8.8 05/06/23 06:31: POC Glucose 96 Rhythm Strip Rhythm Strip: Sinus Rhythm Rate: 97 Ectopy: None Cardiology Labs/Tests 05/06/23 05:22: WBC 6.5, RBC 4.73, Hgb 12.6, Hct 38.8, MCV 82.0, MCH 26.6 L, MCHC 32.5, Plt Count 213, MPV 10.4, Immature Gran % (Auto) 0.500, Neut % (Auto) 62.7, Lymph % (Auto) 24.3, [place] % (Auto) 7.5, Eos % (Auto) 4.1, Baso % (Auto) 0.9, Absolute Neuts (auto) 4.1, Nucleated RBC % 0, Sodium 136, Potassium 3.4 L, Chloride 102, Carbon Dioxide 31.0, Anion Gap 3 L, BUN 14, Creatinine 0.67, Est GFR (MDRD) Af Amer 119, Est GFR (MDRD) Non-Af 99, BUN/Creatinine Ratio 21.0 H, Glucose 98, Calcium 8.8 Rhythm: EKG: ECHO: Stress Test: Cardiac Cath: PCI: CT Surgery: Holter monitor: EPS: PPM: CXR: Chest CT Scan: Physical Exam Const alert, oriented x3 and no apparent distress General Appearance: cooperative HEENT hearing grossly normal bilaterally Head and Scalp: atraumatic Eyes EOMs intact bilaterally Neck General: normal visual inspection Chest inspection of chest normal and palpation of chest normal Resp normal respiratory effort Auscultation: clear to auscultation bilaterally Cardio regular rate, regular rhythm, S1 normal heart sound and S2 normal heart sound Jugular Venous Distention: JVD Palpation: palpable S3 GI normal to inspection, nondistended, normoactive bowel sounds Extremity normal capillary refill General Extremity: edema Peripheral Pulses: Yes pulses 2+ throughout and femoral pulses present Skin no rashes or lesions noted Neuro oriented x3 and CN's II-XII intact bilaterally Psych Appearance: grossly normal and appropriate Assessment & Plan Assessment/Plan (1) CHF (congestive heart failure): PLAN: She does have evidence of congestive heart failure which is systolic [place] Heart Association class III. It appears that this is a combination of coronary artery disease and hypertensive cardiomyopathy. This has been longstanding The particular exacerbation is not entirely clear at this time. I would recommend the following: Continue current dose of beta-linda Intravenous diuretics with IV Lasix can now be switched to oral Lasix 40 mg twi ce a day Continue oral spironolactone Continue Entresto Echocardiogram demonstrated an ejection fraction of 15% which is unchanged from before. Dietary counseling We will review at outpatient. If ejection fraction is still reduced will consider an implantable defibrillator. With her incomplete left bundle branch block will consider whether she would be a candidate for a OFFICE LEAD-D. 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 We will continue to manage the above with medical therapy. He has not had any angina. Thank you for allowing me to participate in the care of your patient. Please don't hesitate to call if any issues arise.
[2023-05-06 11:16] VITALS: BP 106/73; PULSE 87; RESP 14; TEMP 36.5; O2SAT 98
[2023-05-06] MEDS: Spironolactone 25 MG Tablet PO (11:26)
[2023-05-06] MEDS: SACUBITRIL/VALSARTAN 24/26 MG TABLET 1 EACH PO ×2 (11:27→22:28)
[2023-05-06] MEDS: Escitalopram Oxalate 10 MG Tablet PO (11:28)
[2023-05-06] MEDS: Cholecalciferol (VIT D3) 25 MCG TABLET (1,000 UNITS) PO (11:28)
[2023-05-06] MEDS: Enoxaparin 40 MG/0.4 ML Syringe SC (11:28)
[2023-05-06] MEDS: Pantoprazole Sodium 40 MG Tablet PO (11:28)
[2023-05-06] MEDS: Atorvastatin Calcium 80 MG Tablet PO (11:28)
[2023-05-06] MEDS: Senna/Docusate Sodium 1 Tablet 2 TABLET PO ×2 (11:29→22:29)
[2023-05-06] MEDS: Calcium (Elemental) 500 MG Tablet PO (11:29)
[2023-05-06] MEDS: Insulin Glargine-YFGN 100 UNIT/ML Pen 17 UNIT SC ×2 (11:37→22:26)
[2023-05-06 12:30] LABS: Bedside Glucose 138 mg/dL (74-106)
[2023-05-06] MEDS: Furosemide 40 MG Tablet PO ×2 (12:46→17:49)
[2023-05-06] MEDS: Bisacodyl 10 MG Suppository RC (12:46)
[2023-05-06 17:45] VITALS: BP 94/59; PULSE 85; RESP 16; TEMP 36.7; O2SAT 99
[2023-05-06] MEDS: Insulin Lispro 100 UNIT/ML INSULN.PEN SC ×2 (17:48→22:25)
[2023-05-06 18:13] LABS: Bedside Glucose 251 mg/dL (74-106)
[2023-05-06] MEDS: cycloBENZAPRine HCl 10 MG Tablet PO (22:24)
[2023-05-06 22:34] VITALS: BP 91/68; PULSE 82; RESP 14; TEMP 37.2; O2SAT 96
[2023-05-06 23:09] LABS: Bedside Glucose 208 mg/dL (74-106)
[2023-05-07 04:34] VITALS: BP 107/63; PULSE 79; RESP 18; TEMP 36.3; O2SAT 94
[2023-05-07 06:00] VITALS: BMI 26.4
[2023-05-07 06:38] LABS: Absolute Lymphocyte Count 1.39 X10^3/uL (0.83-4.51); Absolute Neutrophil Count 4.2 X10^3/uL (2.0-7.7); Basophil# 0.07 X10^3/uL; Basophil% 1.1 % (0-1); Eosinophil# 0.19 X10^3/uL; Hematocrit 43.5 % (37-47); Hemoglobin 13.5 g/dL (12.0-15.0); Lymphocyte # 1.39 X10^3/ul (0.83-4.51); Mean Corpuscular Volume 83.8 fL (81-99); Mean Platelet Vol. 10.5 fl (6.2-12.0); Monocyte# 0.46 X10^3/uL; Monocyte% 7.3 % (0-10); NRBC Flagged by Analyzer 0 % (0-5); Neutrophil % 66.3 % (47-70); Platelet Count 202 K/mm3 (150-450); RBC Distribution Width CV 14.1 % (11.6-14.6); RBC Distribution Width SD 42.9 fl (35.1-43.9); Red Blood Count 5.19 M/mm3 (4.2-5.4); White Blood Count 6.3 K/mm3 (4.4-11.0)
[2023-05-07] MEDS: Ondansetron 4 MG/2 ML Vial IV (06:44)
[2023-05-07 07:05] LABS: Bedside Glucose 100 mg/dL (74-106)
[2023-05-07 07:37] LABS: Anion Gap 8 (5-15); BUN 15 mg/dL (7-18); BUN/Creat Ratio 20.5 RATIO (10-20); Calcium,Total 8.7 mg/dL (8.5-10.1); Chloride 102 mmol/L (98-107); Creatinine, Serum 0.73 mg/dL (0.55-1.02); EST Glomerular Filtration Rate 89 mL/min (>60); Est Glom Filt Rate - Afr Amer 108 mL/min (>60); Estimated Creatinine Clearance 88.66 ml/min; Glucose 85 mg/dL (74-106); Potassium 4.2 mmol/L (3.5-5.1); Sodium Level 136 mmol/L (136-145)
[2023-05-07] MEDS: Carvedilol 12.5 MG Tablet PO (08:05)
[2023-05-07] MEDS: Aspirin 81 MG TAB.CHEW PO (08:05)
--- NOTE | 2023-05-07 08:07 | PCM.PN.HOSP ---
Reason for Visit Reason for Visit: Diagnoses Type 2 diabetes mellitus with hyperglycemia (05/03/23) Heart failure, unspecified (05/03/23) Personal history of other diseases of the circulatory system (05/03/23) Objective Data Objective Data Vital Signs: Vital Signs Temp Pulse Resp BP Pulse Ox O2 Del Method O2 Flow Rate 97.4 F L 79 18 107/63 94 Room Air 5 05/07/23 04:34 05/07/23 04:34 05/07/23 04:34 05/07/23 04:34 05/07/23 04:34 05/07/23 04:34 05/05/23 07:53 Oxygen Flow Rate (L/min) 5 Oxygen Delivery Method Room Air Weight: 76.5 kg Body Mass Index (BMI) 26.4 Intake & Output: Intake and Output for Last 24 Hours 05/05/23 05/06/23 05/07/23 23:59 23:59 23:59 Intake Total 720 / 720 220 / 220 Balance 720 / 720 220 / 220 Lab / Micro Data 05/07/23 05:50 05/07/23 05:50 Labs: Laboratory Results - last 24 hr 05/06/23 11:21: POC Glucose 138 H 05/06/23 17:44: POC Glucose 251 H 05/06/23 22:24: POC Glucose 208 H 05/07/23 05:50: WBC 6.3, RBC 5.19, Hgb 13.5, Hct 43.5, MCV 83.8, MCH 26.0 L, MCHC 31.0 L, RDW Std Deviation 42.9, RDW Coeff of Spencer 14.1, Plt Count 202, MPV 10.5, Immature Gran % (Auto) 0.300, Neut % (Auto) 66.3, Lymph % (Auto) 22.0, [place] % (Auto) 7.3, Eos % (Auto) 3.0, Baso % (Auto) 1.1 H, Absolute Neuts (auto) 4.2, Absolute Lymphs (auto) 1.39, Nucleated RBC % 0, Sodium 136, Potassium 4.2, Chloride 102, Carbon Dioxide 26.0, Anion Gap 8, BUN 15, Creatinine 0.73, Estim Creat Clear Calc 88.66, Est GFR (MDRD) Af Amer 108, Est GFR (MDRD) Non-Af 89, BUN/Creatinine Ratio 20.5 H, Glucose 85, Calcium 8.7 05/07/23 06:43: POC Glucose 100 Micro: Microbiology 05/03/23 14:25 Nasal Secretion SARS-CoV-2 & FLU Antigen (Rapid) - Final Rhythm Strip Rhythm Strip: Sinus Rhythm Rate: 97 Ectopy: None Physical Exam Narrative General: Alert, oriented, no apparent distress HEENT: Atraumatic, normocephalic Eyes: Anicteric, normal conjunctiva, extraocular movements grossly intact Neck: Supple Respiratory: Respiratory effort improving, aeration improving Cardiovascular: Regular rate GI: Soft, no rebound, guarding, rigidity, nondistended Musculoskeletal: Moving all extremities Neuro: No overt focal neurological deficits Skin: No rashes appreciated Psych: Very tearful Assessment & Plan Assessment/Plan (1) CHF (congestive heart failure): (2) Hyperglycemia due to diabetes mellitus: PLAN: Plan Patient is a 52-year-old female who presented to [facility] ED on 05/03/2023 with worsening shortness of breath. 1. Severe combined heart failure with mild CHF exacerbation, history of severe CAD of LAD, history of PAD s/p stenting of right femoral artery in 08/2022, acute hypoxia with history of COPD Follows with cardiology, last office visit on 03/22/2023. Patient had echo in 08/2022 that showed an EF of 15%, severe hypokinesis/akinesis of the majority of her left ventricle. She had known premature CAD dating back to 2014. Has had multiple heart cath done but does not appear that she has had any stents placed. Last left heart cath in 2018 showed long segment of severe diffuse narrowing in proximal and midportion of LAD, normal right and circumflex coronary arteries. Echo in 2019 showed an EF of 30 to 35% with similar areas of hypokinesis in comparison to most recent echo. Patient with mild volume overload on this admission. Chest x-ray showed mild degree of vascular congestion, +2-3 lower extremity pitting edema, BNP 941, patient requiring 3 L nasal cannula to maintain oxygen saturations greater than 88%. Does not wear oxygen at baseline. No wheezing noted on exam. ? Admit under inpatient status to PCU. Cardiology consulted. Will start IV Lasix 40 mg twice daily for now. Repeat echo ordered. Wean supplemental oxygen as able. Continue home aspirin, statin, Plavix. Continue home Coreg, will hold home lisinopril for now, restart when able. Hold home dapagliflozin. -05/04: BNP on admit 941. Cardiology evaluated, continue IV Lasix, beta-linda, repeat echo ordered and redemonstrates EF of 15% with wall motion abnormalities as well as stage III diastolic dysfunction, patient started on Entresto and spironolactone. BP slightly low overnight and with new medication additions beta-linda was decreased to allow for medical optimization, continue to adjust. Monitor respiratory status, daily weights, I's and O's -05/05: Cardiology evaluated, patient improving, continue present management -05/06: Patient transition to p.o. Lasix, if patient tolerates this and respiratory status stable can likely DC in the a.m. 2. Poorly controlled type 2 diabetes with hyperglycemia BG 323 on admit. Last A1c of 11.5% in 08/2022, A1c of greater than 14% in 08/2021. Home regimen of insulin glargine 25 units twice daily, Trulicity 3 mg weekly, dapagliflozin 10 mg daily. Patient reports compliance with this regimen. A1c of 11.0% on this admission. ? Will start Lantus 20 units twice daily with high-dose sliding scale insulin for now, adjust as needed. -05/04: A1c is 11, there has been query of compliance previously, on 20 of Lantus twice daily patient's a.m. glucose is 134 so we will continue present regimen and adjust as indicated -05/05: Continue to monitor and adjust glucose -05/06: Glucose under tighter control and is necessary for acute hospitalization so we will decrease slightly to avoid hypoglycemia 3. Debility Patient lives at home with her daughter. States she has generally been able to take care of herself without issue, but she has been feeling progressively weaker over the last several weeks to months. ? PT/OT/case management consulted. -05/04: PT/OT -05/06: Continue to encourage ambulation #Constipation -Patient very anxious and reports feeling uncomfortable she has not had a bowel movement in a couple of days despite senna docusate, agreeable to suppository Chronic medical conditions: ? Hypertension, hyperlipidemia: See medication recommendations as noted above. ? Anxiety/depression: Continue home Lexapro. ? Current smoker: Attempting to quit, using a 21 mg nicotine patch at home and smoking 5 to 10 cigarettes a day per her report. Continue nicotine patch while inpatient. ? GERD: Continue home PPI. ? History of substance abuse: Previous history of opiate dependence for pain. Not currently on opiates at home. Strongly recommend avoiding opiates for pain management while inpatient. DVT prophylaxis: Lovenox CODE STATUS: Full code, verified Total clinical time spent by myself addressing the patient's medical issues, reviewing all the data, and collaborating with patient's care team: 35 minutes.
[2023-05-07 08:34] VITALS: O2SAT 94
[2023-05-07 10:06] VITALS: BP 91/59; PULSE 82; RESP 16; TEMP 36.6; O2SAT 84
[2023-05-07] MEDS: Senna/Docusate Sodium 1 Tablet 2 TABLET PO (10:10)
[2023-05-07] MEDS: Pantoprazole Sodium 40 MG Tablet PO (10:11)
[2023-05-07] MEDS: SACUBITRIL/VALSARTAN 24/26 MG TABLET 1 EACH PO (10:12)
[2023-05-07] MEDS: Atorvastatin Calcium 80 MG Tablet PO (10:13)
[2023-05-07] MEDS: Escitalopram Oxalate 10 MG Tablet PO (10:13)
[2023-05-07] MEDS: Enoxaparin 40 MG/0.4 ML Syringe SC (10:13)
[2023-05-07] MEDS: Calcium (Elemental) 500 MG Tablet PO (10:14)
[2023-05-07] MEDS: Cholecalciferol (VIT D3) 25 MCG TABLET (1,000 UNITS) PO (10:14)
[2023-05-07] MEDS: Insulin Glargine-YFGN 100 UNIT/ML Pen 17 UNIT SC (10:22)
[2023-05-07] MEDS: Furosemide 40 MG Tablet PO (10:30)
[2023-05-07] MEDS: Spironolactone 25 MG Tablet PO (10:32)
[2023-05-07 10:43] LABS: Bedside Glucose 191 mg/dL (74-106)
--- NOTE | 2023-05-07 11:21 | PCM.DC.SUM ---
Providers Date of Admission: 05/03/23 Date of Discharge: 05/07/23 Primary Care Physician: [place] [facility] Consultations 05/03/23 21:00 Consult: Cardiology Routine Consulting Provider: Alli Brito Reason for Consult: severe HFrEF w/ EF 15%, here for CHF exacerbation EMERGENT Consult: No MD Notified: Yes Date Notified: 05/04/23 Time Notified: 06:34 Method of Notification: Text Reason For Visit: CHF EXACERBATION Diagnosis Discharge Diagnosis (1) CHF (congestive heart failure): Status: Acute Code(s): I50.9 - Heart failure, unspecified (2) Hyperglycemia due to diabetes mellitus: Status: Acute Code(s): E11.65 - Type 2 diabetes mellitus with hyperglycemia Medications at Discharge Home Medications cholecalciferol (vitamin D3) 25 mcg (1,000 unit) tablet 1,000 unit PO DAILY vitamin 07/25/22 calcium carbonate 500 mg calcium (1,250 mg) tablet 1 tablet PO DAILY supplement 08/09/22 aspirin 81 mg capsule 81 mg PO DAILY heart health 08/10/22 nicotine 21 mg/24 hr daily transdermal patch 21 mg transdermal DAILY stop smoking #30 ea 09/02/22 dulaglutide 3 mg/0.5 mL subcutaneous pen injector (Trulicity) 3 mg subcut QWEEK diabetes 02/02/23 atorvastatin 80 mg tablet 80 mg PO DAILY cholesterol #30 tabs 02/03/23 clopidogrel 75 mg tablet 75 mg PO DAILY anti platelet #30 tabs 02/03/23 escitalopram oxalate 10 mg tablet (Lexapro) 10 mg PO DAILY mental health #30 tabs 02/03/23 insulin glargine 100 unit/mL subcutaneous solution (Lantus U-100 Insulin) 25 unit subcut BID diabetes 02/27/23 dapagliflozin propanediol 10 mg tablet (Farxiga) 10 mg PO DAILY diabetes #90 tabs 03/26/23 pantoprazole 40 mg tablet,delayed release 40 mg PO DAILY reflux 04/18/23 simethicone 125 mg capsule 125 mg PO TID-QID PRN abdominal distention 04/18/23 carvedilol 12.5 mg tablet 12.5 mg PO BIDCM #60 tabs 05/07/23 furosemide 40 mg tablet 40 mg PO BIDLX #60 tabs 05/07/23 sacubitril 24 mg-valsartan 26 mg tablet (Entresto) 1 tab PO BID 30 days #60 tabs 05/07/23 spironolactone 25 mg tablet 25 mg PO DAILY #30 tabs 05/07/23 Hospital Course Summary of Care Provided Minutes Spent on Discharge: 35 Hospital Course: Patient is a 52-year-old female who presented to [facility] ED on 05/03/2023 with worsening shortness of breath. 1. Acute on chronic congestive heart failure with reduced ejection fraction ? Echo from 323 demonstrated EF of 15%. Patient admitted to monitored bed managed with diuretic therapy as well as supplemental oxygen. Patient was discharged home on Entresto spironolactone and Farxiga as well as Lasix 2. Poorly controlled diabetes mellitus type 2 ? Patient presented with hyperglycemia adjusted her insulin regimen counseled on the need to be compliant 3. Physical deconditioning - Requested for PT OT eval and director of social media marketing to assist with discharge planning 4. Constipation ? Treated per protocol 5. Hypertension - Blood pressure controlled, home medications continued with dose adjustment as needed 6. Dyslipidemia -Patient is on statin therapy, continued at home dose 7. Depression with anxiety ? Patient is on Lexapro 8. Tobacco dependence - Counseled on cessation, offered nicotine patch for tobacco cravings 9. GERD ? On PPI 10. DVT prophylaxis ? SC Lovenox Total clinical time spent by myself addressing the patient's medical issues, reviewing all the data, and collaborating with patient's care team: 35 minutes. Physical Exam Narrative GENERAL: cooperative HEENT: Atraumatic; normocephalic EYES; Anicteric, Normal Conjunctiva NECK; supple, normal thyroid, RESPIRATORY: Diminished to auscultation CARDIOVASCULAR: Regular S1 S2, GI: soft, normoactive bowel sounds, : No Renal angle tenderness; EXTREMITIES: No edema, no clubbing, MUSCULOSKELETAL: no muscle wasting NEURO: Awake; no lateralizing signs. SKIN: No Rash PSYCH; Flat affect Weight / BMI Weight Weight: 76.5 kg Body Mass Index (BMI) 26.4 ABG / Lab / Microbiology Data 05/07/23 05:50 05/07/23 05:50 Laboratory: Laboratory Results - last 24 hr 05/06/23 11:21: POC Glucose 138 H 05/06/23 17:44: POC Glucose 251 H 05/06/23 22:24: POC Glucose 208 H 05/07/23 05:50: WBC 6.3, RBC 5.19, Hgb 13.5, Hct 43.5, MCV 83.8, MCH 26.0 L, MCHC 31.0 L, RDW Std Deviation 42.9, RDW Coeff of Spencer 14.1, Plt Count 202, MPV 10.5, Immature Gran % (Auto) 0.300, Neut % (Auto) 66.3, Lymph % (Auto) 22.0, [place] % (Auto) 7.3, Eos % (Auto) 3.0, Baso % (Auto) 1.1 H, Absolute Neuts (auto) 4.2, Absolute Lymphs (auto) 1.39, Nucleated RBC % 0, Sodium 136, Potassium 4.2, Chloride 102, Carbon Dioxide 26.0, Anion Gap 8, BUN 15, Creatinine 0.73, Estim Creat Clear Calc 88.66, Est GFR (MDRD) Af Amer 108, Est GFR (MDRD) Non-Af 89, BUN/Creatinine Ratio 20.5 H, Glucose 85, Calcium 8.7 05/07/23 06:43: POC Glucose 100 05/07/23 10:22: POC Glucose 191 H Microbiology: Microbiology 05/03/23 14:25 Nasal Secretion SARS-CoV-2 & FLU Antigen (Rapid) - Final D/C Instructions Discharge Diet: 2000 Calorie Control Diet and 8 Cup Fluid Restriction Discharge Activity: Return to Normal Activity Call your doctor if you observe: Fever of 101 or Higher, Shortness of breath, Fainting spells and Chest pain Meaningful Use Info Meaningful Use Diagnoses (Choose all that apply): CHF CHF SELENE/ARB ordered at discharge?: Yes Documented LVEF (%): 15 Discharge Plan Admission Admit Date/Time: 05/03/23 16:38 Attending Provider: Morro Aaron [facility] Providers: Alli Brito; Jonas Justin; Brenda Posadas Discharge Orders/Prescriptions Prescriptions: New carvedilol 12.5 mg Tablet 12.5 mg PO BIDCM Qty: 60 0RF Entresto 24-26 mg Tablet 1 tab PO BID 30 Days Qty: 60 0RF furosemide 40 mg Tablet 40 mg PO BIDLX Qty: 60 0RF spironolactone 25 mg Tablet 25 mg PO DAILY Qty: 30 0RF Continued calcium carbonate 500 mg calcium (1,250 mg) tablet 1 tablet PO DAILY insulin glargine [Lantus U-100 Insulin] 100 unit/mL solution 25 unit subcut BID pantoprazole 40 mg tablet,delayed release (DR/EC) 40 mg PO DAILY simethicone 125 mg capsule 125 mg PO TID-QID PRN (Reason: abdominal distention) cholecalciferol (vitamin D3) 25 mcg (1,000 unit) tablet 1,000 unit PO DAILY Patient Comments: TAKE 1 TABLET DAILY aspirin 81 mg Capsule 81 mg PO DAILY nicotine 21 mg/24 hr Patch 24 Hour 21 mg transdermal DAILY Qty: 30 0RF Trulicity 3 mg/0.5 mL pen injector 3 mg SUBCUT QWEEK Hold Instructions: MD Ordered Patient Comments: INJECT 3 (THREE) MG SUBCUTANEOUSLY EVERY WEEK Dr. Sousa informed patient to hold this medication d/t side effects. has not had it in a couple of weeks clopidogrel 75 mg Tablet 75 mg PO DAILY Qty: 30 0RF Patient Comments: patient stated pretty sure I still take that atorvastatin 80 mg tablet 80 mg PO DAILY Qty: 30 0RF escitalopram oxalate [Lexapro] 10 mg tablet 10 mg PO DAILY Qty: 30 0RF Farxiga 10 mg tablet 10 mg PO DAILY Qty: 90 3RF Patient Comments: patient stated I know I am supposed to be taking this one but I never got a notification from the pharmacy to come pick it up Discontinued carvedilol 25 mg tablet 25 mg PO BIDCM Qty: 180 3RF Patient Comments: patient states she takes 40 mg... I know that one not sure how often she takes it. lisinopril 20 mg Tablet 20 mg PO DAILY Qty: 30 0RF furosemide [Lasix] 40 mg tablet 40 mg PO DAILY Qty: 30 0RF Referrals / Follow Up: [facility],Ama Neff [Primary Care Provider] - 05/07/23 3:30 pm Disposition Disposition (needs filled in before D/C Order can be placed): Home, Self Care Charges/Coding Visit Charges Inpatient E&M: 05514 Disch Hosp >30min
[2023-05-07] MEDS: Insulin Lispro 100 UNIT/ML INSULN.PEN SC (11:46)
[2023-05-07 11:48] LABS: Bedside Glucose 229 mg/dL (74-106)
--- NOTE | 2023-05-07 11:49 | PHA.DC.MC.R ---
Pharmacy [facility] Pharm[facility] Service has performed discharge medication reconciliation and counseling for this patient. The patient's discharge medication list was reviewed for discrepancies and discrepancies were resolved. The patient was counseled on the following discharge medications and changes in medications for homegoing were reviewed. The Reason for Use, instructions for use, and potential side effects were reviewed for all new medications. The patient's questions regarding all of their medications were answered. 1. Carvedilol 12.5 mg PO BID with meals (dose decrease) 2. Furosemide 40 mg PO BID (dose increase) 3. Entresto 24-26 mg PO BID 4. Spironolactone 25 mg PO daily The patient was able to verbally demonstrate an understanding of their discharge medications. Medications at Discharge Home Medications cholecalciferol (vitamin D3) 25 mcg (1,000 unit) tablet 1,000 unit PO DAILY vitamin 07/25/22 calcium carbonate 500 mg calcium (1,250 mg) tablet 1 tablet PO DAILY supplement 08/09/22 aspirin 81 mg capsule 81 mg PO DAILY heart health 08/10/22 nicotine 21 mg/24 hr daily transdermal patch 21 mg transdermal DAILY stop smoking #30 ea 09/02/22 dulaglutide 3 mg/0.5 mL subcutaneous pen injector (Trulicity) 3 mg subcut QWEEK diabetes 02/02/23 atorvastatin 80 mg tablet 80 mg PO DAILY cholesterol #30 tabs 02/03/23 clopidogrel 75 mg tablet 75 mg PO DAILY anti platelet #30 tabs 02/03/23 escitalopram oxalate 10 mg tablet (Lexapro) 10 mg PO DAILY mental health #30 tabs 02/03/23 insulin glargine 100 unit/mL subcutaneous solution (Lantus U-100 Insulin) 25 unit subcut BID diabetes 02/27/23 dapagliflozin propanediol 10 mg tablet (Farxiga) 10 mg PO DAILY diabetes #90 tabs 03/26/23 pantoprazole 40 mg tablet,delayed release 40 mg PO DAILY reflux 04/18/23 simethicone 125 mg capsule 125 mg PO TID-QID PRN abdominal distention 04/18/23 carvedilol 12.5 mg tablet 12.5 mg PO BIDCM #60 tabs 05/07/23 furosemide 40 mg tablet 40 mg PO BIDLX #60 tabs 05/07/23 sacubitril 24 mg-valsartan 26 mg tablet (Entresto) 1 tab PO BID 30 days #60 tabs 05/07/23 spironolactone 25 mg tablet 25 mg PO DAILY #30 tabs 05/07/23
--- NOTE | 2023-05-07 12:04 | CASEMGMT ---
Patient has order for discharge. Patient does not qualify for home oxygen. RN CM in to discuss needs at discharge. Patient denies needs at discharge. Patient denied further questions or concerns.
[2023-05-07 12:30] VITALS: BP 94/63; PULSE 85; RESP 16; TEMP 36.9; O2SAT 92
--- NOTE | 2023-05-07 14:24 | CASEMGMT ---
Patient discharging on Entresto. CHAYITO BARKLEY called [facility] and prior auth is needed. CHAYITO ABRKLEY called [facility] to complete prior auth Case#[id number]. CHAYITO BARKLEY completed prior auth, 24 hours until reviewed. CHAYITO BARKLEY printed 30 day savings card and sent to retail pharmacy so patient could fill prescription today. CHAYITO BARKLEY updated patient.
[2023-05-07 16:50] VITALS: BP 101/68; PULSE 84; RESP 16; TEMP 36.8; O2SAT 99
== END 2023-05-07 16:50 | disposition home or self-care (01) | DRG 194 ==
LOC: ED 15:42 → PCU 17:10
PROVIDERS: Internal Medicine; Admitting Provider Hospitalist; Emergency Provider Emergency Medicine; Visit Provider Internal Medicine
DX: I11.0 Hypertensive heart disease with heart failure (principal); E11.51 Type 2 diabetes mellitus with diabetic peripheral angiopathy without gangrene; J44.9 Chronic obstructive pulmonary disease, unspecified; I50.23 Acute on chronic systolic (congestive) heart failure; E11.65 Type 2 diabetes mellitus with hyperglycemia; F32.A Depression, unspecified; E78.5 Hyperlipidemia, unspecified; F12.90 Cannabis use, unspecified, uncomplicated; I25.5 Ischemic cardiomyopathy; K21.9 Gastro-esophageal reflux disease without esophagitis; F17.200 Nicotine dependence, unspecified, uncomplicated; I25.10 Atherosclerotic heart disease of native coronary artery without angina pectoris; I44.7 Left bundle-branch block, unspecified; F41.8 Other specified anxiety disorders; K59.00 Constipation, unspecified; R09.02 Hypoxemia; Z79.82 Long term (current) use of aspirin; R53.81 Other malaise; Z79.02 Long term (current) use of antithrombotics/antiplatelets
CPT/HCPCS: 36415; 71045; 80048; 82962; 83036; 83735; 83880; 84484; 85025; 85027; 87428; 93005; 93306; 94640; 94668; 97802; 99285; J7030; Q9957; A4216; C8929; J1940; J2405

== ENCOUNTER 2023-05-22 13:38 | Emergency (ER) | payer MEDICAID, SELFPAY ==
[2023-05-22 13:51] VITALS: BP 150/82; PULSE 107; RESP 18; TEMP 36.3; O2SAT 98
[2023-05-22 14:33] VITALS: BMI 26.6
--- NOTE | 2023-05-22 14:43 | EDS_ITS ---
HPI <GLENN Ruelas - Last Filed: 05/22/23 15:40> History of Present Illness Chief Complaint: Lower Extremity Injury Narrative Narrative: Patient is a 52-year-old female with history of CHF, CAD, hypertension, diabetes who presents to the emergency department with pain to the left foot. Patient does have a stump, all of her toes removed 6 years ago. Patient states this morning she woke up, vomited, she then went to take a step and noticed that her left foot was significantly swollen, warm and she is here for evaluation. Patient dates the pain is substantial. She denies any injury. Denies any recent infections, she denies any recent antibiotic use. [facility] <GLENN Ruelas - Last Filed: 05/22/23 15:40> [facility] Medical History (Updated 05/22/23 @ 15:36 by GLENN Ruelas) Acute dyspnea Aftercare following surgery of the circulatory system Alcohol abuse Amputation toe CAD (coronary artery disease), [place] coronary artery CHF (congestive heart failure) Depression Diabetes type 2, uncontrolled DVT (deep venous thrombosis) Essential hypertension GERD (gastroesophageal reflux disease) Hx of fracture of humerus Hyperlipidemia Hypoxemia Ischemic cardiomyopathy Myocardial infarct Osteoporosis Pericardial effusion Psychiatric disorder Pulmonary embolism Rheumatoid arthritis Seizures Sleep apnea Smoker Substance abuse Toe amputee Home Medications cholecalciferol (vitamin D3) 25 mcg (1,000 unit) tablet 1,000 unit PO DAILY vitamin 07/25/22 [History Last Taken 02/01/23] calcium carbonate 500 mg calcium (1,250 mg) tablet 1 tablet PO DAILY supplement 08/09/22 [History Last Taken 02/01/23] aspirin 81 mg capsule 81 mg PO DAILY heart health 08/10/22 [History Last Taken 02/01/23] nicotine 21 mg/24 hr daily transdermal patch 21 mg transdermal DAILY stop smoking #30 ea 09/02/22 [Rx Last Taken 02/01/23] dulaglutide 3 mg/0.5 mL subcutaneous pen injector (Trulicity) 3 mg subcut QWEEK diabetes 02/02/23 [History Last Taken 02/01/23] atorvastatin 80 mg tablet 80 mg PO DAILY cholesterol #30 tabs 02/03/23 [Rx Last Taken Unknown] clopidogrel 75 mg tablet 75 mg PO DAILY anti platelet #30 tabs 02/03/23 [Rx Last Taken Unknown] escitalopram oxalate 10 mg tablet (Lexapro) 10 mg PO DAILY mental health #30 tabs 02/03/23 [Rx Last Taken Unknown] insulin glargine 100 unit/mL subcutaneous solution (Lantus U-100 Insulin) 25 unit subcut BID diabetes 02/27/23 [History Last Taken Unknown] dapagliflozin propanediol 10 mg tablet (Farxiga) 10 mg PO DAILY diabetes #90 tabs 03/26/23 [Rx Last Taken Unknown] pantoprazole 40 mg tablet,delayed release 40 mg PO DAILY reflux 04/18/23 [History Last Taken Unknown] simethicone 125 mg capsule 125 mg PO TID-QID PRN abdominal distention 04/18/23 [History Last Taken Unknown] carvedilol 12.5 mg tablet 12.5 mg PO BIDCM #60 tabs 05/07/23 [Rx Last Taken Unknown] furosemide 40 mg tablet 40 mg PO BIDLX #60 tabs 05/07/23 [Rx Last Taken Unknown] sacubitril 24 mg-valsartan 26 mg tablet (Entresto) 1 tab PO BID 30 days #60 tabs 05/07/23 [Rx Last Taken Unknown] spironolactone 25 mg tablet 25 mg PO DAILY #30 tabs 05/07/23 [Rx Last Taken Unknown] gabapentin 300 mg capsule 300 mg PO TID #90 caps 05/22/23 [Rx Last Taken Unknown] ondansetron 4 mg disintegrating tablet 4 mg PO Q8H PRN PRN Nausea #10 tabs 05/22/23 [Rx Last Taken Unknown] Allergy/AdvReac Type Severity Reaction Status Date / Time latex Allergy Hives Verified 05/22/23 13:50 Family History Mother Thyroid disorder Diabetes Hypertension Grandmother Diabetes Uncle Diabetes Aunt Diabetes Other Heart disease Surgical History History of appendectomy History of cholecystectomy Social History household members: spouse and children housing: house Smoking Status: Current every day smoker tobacco type: cigarettes alcohol intake: never substance use type: marijuana what type of physical activity do you participate in: none do you feel safe at home: Yes ROS <Vidal Aslanides, 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 Positive for nausea and vomiting x 1 : Negative for any urinary frequency, dysuria, retention, blood in urine Muscle skeletal: Negative for any myalgias, arthralgias, neck pain, back pain. Positive for left foot pain Neurological: Negative for any headache, syncope, paresthesias, dizziness Skin: Negative for any rashes, lumps, itching, abrasions, lacerations Psychiatric: Negative for any depression, anxiety, stress, suicidal ideation, homicidal ideation Hematologic: Negative for any easy bruising, excessive bruising, easy bleeding Allergies: Negative for any eczema, hives, rash EXAM <GLENN Ruelas - Last Filed: 05/22/23 15:40> Physical Exam Narrative Exam Narrative: Vital signs reviewed. HEET: Head normocephalic atraumatic, TMs clear bilaterally. Posterior pharynx is clear, moist mucous membranes. Nares clear bilaterally. Neck: Supple with no lymphadenopathy or tenderness. No signs of meningismus. Cardiac: Regular rate and rhythm no murmurs gallops or rubs, equal peripheral pulses bilaterally. Respiratory: Lungs clear to auscultation bilaterally. No chest tenderness. Abdomen: Soft, nontender, nondistended. No abdominal bruit or pulsatile masses. No hepatosplenomegaly Extremities: No peripheral edema, no signs of gross trauma or deformity. Active full range of motion of all extremities. Patient's left foot does appear to be stopped, there are no toes on the left foot. The area does not look red, there may be slight edema. There is no signs or symptoms of any open wounds. The stump appears well-healed. +2 pedal pulse. Patient has pain throughout the entire foot. Neuro: Cranial nerves II through XII intact, no focal neurological deficits. Skin: Clean dry and intact with no rash, purpura, petechiae, vesicles or pustul es. Backs/flank: No CVA tenderness, no midline spinal tenderness, no deformity. Psych: Normal mood and affect. No SI, HI or acute psychosis. Const Vital Signs: 05/22/23 13:51 05/22/23 16:02 05/22/23 16:02 Temperature 97.3 F L Temperature Source Temporal Pulse Rate 107 H Respiratory Rate 18 16 16 Blood Pressure 150/82 H Blood Pressure Mean 104 Pulse Ox 98 Oxygen Delivery Method Room Air <Dr. Derek Paniagua MD - Last Filed: 05/22/23 18:01> Physical Exam Const Vital Signs: 05/22/23 13:51 05/22/23 16:02 05/22/23 16:02 Temperature 97.3 F L Temperature Source Temporal Pulse Rate 107 H Respiratory Rate 18 16 16 Blood Pressure 150/82 H Blood Pressure Mean 104 Pulse Ox 98 Oxygen Delivery Method Room Air MDM <GLENN Ruelas - Last Filed: 05/22/23 15:40> [facility] Lab Data Labs: Laboratory Results - last 24 hr 05/22/23 14:50 WBC 8.1 RBC 4.97 Hgb 12.9 Hct 40.8 MCV 82.1 MCH 26.0 L MCHC 31.6 L RDW Std Deviation 41.3 RDW Coeff of Spencer 14.1 Plt Count 196 MPV 10.6 Immature Gran % (Auto) 0.400 Neut % (Auto) 76.7 H Lymph % (Auto) 15.4 L Shelby % (Auto) 4.8 Eos % (Auto) 2.0 Baso % (Auto) 0.7 Absolute Neuts (auto) 6.3 Absolute Lymphs (auto) 1.25 Nucleated RBC % 0 Sodium 136 Potassium 3.9 Chloride 102 Carbon Dioxide 30.0 Anion Gap 4 L BUN 9 Creatinine 0.78 Estim Creat Clear Calc 82.98 Est GFR (MDRD) Af Amer 100 Est GFR (MDRD) Non-Af 83 BUN/Creatinine Ratio 11.6 Glucose 323 H Calcium 9.2 Radiography Diagnostic Testing: Clinical Impression(s) from Imaging Studies Foot X-Ray 05/22/23 15:00 IMPRESSION: Status post transmetatarsal amputation. Diffuse soft tissue swelling. Cellulitis should be ruled out. Electronically Signed: Ryan Tejeda MD at 15:29 EST , Treatment and Re-Evaluation :: Patient appears generally well, patient appears nontoxic, vital signs are stable. Presenting to the emergency department with complaints of left foot pain as well as nausea and vomiting. Differential diagnosis includes acute on chronic left foot pain, gastrointestinal illness, viral illness, osteomyelitis. Patient received x-rays of the left stump. Patient also has basic laboratory values looking for any leukocytosis, lecture abnormality, looking with the patient's blood glucose is here. Patient CBC was unremarkable, negative for any leukocytosis. Patient's chemistries does show a blood sugar of 323. X-ray 3 view of the left foot shows Soft tissue swelling, status post transmetatarsal amputation. At this time, there is no evidence to suspect any osteomyelitis, infection. The skin is cool to the touch, there is no redness, no erythema, no edema. Patient will be placed back on gabapentin, she will be on 300 mg twice a day for 3 days, then she will take gabapentin 300 mg 3 times a day. I will refer her to pain management. I also will give the patient nausea medicine. All questions were answered, patient stable for discharge. Instructed return for any worsening symptoms <Dr. Derek Paniagua MD - Last Filed: 05/22/23 18:01> [facility] Narrative Medical decision making narrative: I have personally performed a face to face assessment of the patient and have reviewed the JANICE Note. I performed a substantive portion of the visit including all aspects of the following. My jones findings include: History is remarkable for atraumatic foot pain. She has diabetic neuropathy. She is on gabapentin. Initially she denied this to me. She denies fever, chills night sweats. She denies history of gout or pseudogout. She complains of pain distal third of the leg and foot. She is status post mid metatarsal amputation. Exam is remarkable The incision is well-healed. There is no erythema, warmth, induration, lymphangitis or popliteal lymphadenopathy. There is minimal pain to touch. There is no evidence of acute arterial insufficiency or ischemia. Medical Decision Making obtained to determine if there is evidence of a foreign body. Blood work was obtained to assess glucose/CO2 anion gap since she is diabetic. CBC to assess white count differential. Other additions or changes: [None] History & Record Review Additional record(s) reviewed:: Prior outpatient record (Podiatry records for amputation was reviewed.) and Prior labs Lab Data Attestation: I reviewed the patient's lab results. Lab results narrative: CBC is unremarkable. Basic metabolic panel is marked for glucose of 323 with a normal CO2 anion gap. Labs: Laboratory Results - last 24 hr 05/22/23 14:50 WBC 8.1 RBC 4.97 Hgb 12.9 Hct 40.8 MCV 82.1 MCH 26.0 L MCHC 31.6 L RDW Std Deviation 41.3 RDW Coeff of [place] 14.1 Plt Count 196 MPV 10.6 Immature Gran % (Auto) 0.400 Neut % (Auto) 76.7 H Lymph % (Auto) 15.4 L Shelby % (Auto) 4.8 Eos % (Auto) 2.0 Baso % (Auto) 0.7 Absolute Neuts (auto) 6.3 Absolute Lymphs (auto) 1.25 Nucleated RBC % 0 Sodium 136 Potassium 3.9 Chloride 102 Carbon Dioxide 30.0 Anion Gap 4 L BUN 9 Creatinine 0.78 Estim Creat Clear Calc 82.98 Est GFR (MDRD) Af Amer 100 Est GFR (MDRD) Non-Af 83 BUN/Creatinine Ratio 11.6 Glucose 323 H Calcium 9.2 Radiography Diagnostic Testing: Clinical Impression(s) from Imaging Studies Foot X-Ray 05/22/23 15:00 IMPRESSION: Status post transmetatarsal amputation. Diffuse soft tissue swelling. Cellulitis should be ruled out. Electronically Signed: Ryan Tejeda MD at 15:29 EST , Discharge Plan Triage Chief Complaint: Lower Extremity Injury ED Midlevel Provider: Vidal Solorio ED Provider: Derek Paniagua Dx/Rx/DC Orders Clinical Impression: Acute foot pain, Diabetic neuropathy Instructions: Diabetes and PAD, Diabetes Inspect Feet Prescriptions: New gabapentin 300 mg capsule 300 mg PO TID Qty: 90 0RF Rx Instructions: Take 300 mg tablet only twice a day for the first 3 days then you may continue through 100 mg 3 times a day for the remainder of the prescription ondansetron 4 mg tablet,disintegrating 4 mg PO Q8H PRN PRN (Reason: Nausea) Qty: 10 0RF No Action calcium carbonate 500 mg calcium (1,250 mg) tablet 1 tablet PO DAILY insulin glargine [Lantus U-100 Insulin] 100 unit/mL solution 25 unit subcut BID pantoprazole 40 mg tablet,delayed release (DR/EC) 40 mg PO DAILY simethicone 125 mg capsule 125 mg PO TID-QID PRN (Reason: abdominal distention) cholecalciferol (vitamin D3) 25 mcg (1,000 unit) tablet 1,000 unit PO DAILY Patient Comments: TAKE 1 TABLET DAILY aspirin 81 mg Capsule 81 mg PO DAILY nicotine 21 mg/24 hr Patch 24 Hour 21 mg transdermal DAILY Qty: 30 0RF Trulicity 3 mg/0.5 mL pen injector 3 mg SUBCUT QWEEK Hold Instructions: Ordered Patient Comments: INJECT 3 (THREE) MG SUBCUTANEOUSLY EVERY WEEK Dr. Sousa informed patient to hold this medication d/t side effects. has not had it in a couple of weeks clopidogrel 75 mg Tablet 75 mg PO DAILY Qty: 30 0RF Patient Comments: patient stated pretty sure I still take that atorvastatin 80 mg tablet 80 mg PO DAILY Qty: 30 0RF escitalopram oxalate [Lexapro] 10 mg tablet 10 mg PO DAILY Qty: 30 0RF carvedilol 12.5 mg Tablet 12.5 mg PO BIDCM Qty: 60 0RF Entresto 24-26 mg Tablet 1 tab PO BID 30 Days Qty: 60 0RF furosemide 40 mg Tablet 40 mg PO BIDLX Qty: 60 0RF spironolactone 25 mg Tablet 25 mg PO DAILY Qty: 30 0RF Farxiga 10 mg tablet 10 mg PO DAILY Qty: 90 3RF Patient Comments: patient stated I know I am supposed to be taking this one but I never got a notification from the pharmacy to come pick it up [facility] Referrals: David Barry DO [Non-Staff[facility] - [facility] [Primary Care Provider] - Activity Restrictions/Additional Instructions: I given you a month supply of gabapentin. You will take 300 mg twice a day for the first 3 days, then you may continue 300 mg 3 times a day for the remainder of the prescription. You need to follow-up with your PCP, I also gave you pain management. Disposition Disposition: Home, Self Care Discharge Date/Time: 05/22/23 16:03
--- NOTE | 2023-05-22 15:00 | RAD_ITS ---
STUDY: X-RAY - LEFT FOOT CLINICAL: Female, 52 years old. Foot pain. Inflamed and redness. TECHNIQUE: 3 view(s) of the foot. COMPARISON: Comparison is made with prior study of August 04, 2021. FINDINGS: There is a plantar calcaneal spur. Normal visualized subtalar, talonavicular, calcaneocuboid, tarsal and tarsometatarsal articulations. The patient is status post transmetatarsal amputation. Normal metatarsophalangeal joint of the great toe. Normal tibial and fibular sesamoid bones. Normal interphalangeal joint of the great toe. Normal phalanges of the great toe. Normal second through fifth metatarsophalangeal joints. Normal interphalangeal joints and phalanges of the lesser toes. There is non-specific soft tissue swelling of the foot. Vascular calcification. RAD/Foot min 3 Views IMPRESSION: Status post transmetatarsal amputation. Diffuse soft tissue swelling. Cellulitis should be ruled out. Electronically Signed: Ryan Tejeda MD at 15:29 EST ,
[2023-05-22 15:02] LABS: Absolute Lymphocyte Count 1.25 X10^3/uL (0.83-4.51); Absolute Neutrophil Count 6.3 X10^3/uL (2.0-7.7); Basophil# 0.06 X10^3/uL; Basophil% 0.7 % (0-1); Eosinophil# 0.16 X10^3/uL; Hematocrit 40.8 % (37-47); Hemoglobin 12.9 g/dL (12.0-15.0); Lymphocyte # 1.25 X10^3/ul (0.83-4.51); Lymphocyte % 15.4 % (19-41); Mean Corp Hgb Conc 31.6 g/dL (32-36); Mean Corpuscular Volume 82.1 fL (81-99); Mean Platelet Vol. 10.6 fl (6.2-12.0); Monocyte# 0.39 X10^3/uL; Monocyte% 4.8 % (0-10); NRBC Flagged by Analyzer 0 % (0-5); Neutrophil # 6.25 X10^3/uL (2.7-7.7); Neutrophil % 76.7 % (47-70); Platelet Count 196 K/mm3 (150-450); RBC Distribution Width CV 14.1 % (11.6-14.6); RBC Distribution Width SD 41.3 fl (35.1-43.9); Red Blood Count 4.97 M/mm3 (4.2-5.4); White Blood Count 8.1 K/mm3 (4.4-11.0)
[2023-05-22] MEDS: Oxycodone/Apap 5/325 Tablet PO (15:08)
[2023-05-22] MEDS: Ondansetron 4 MG/2 ML Vial IV (15:08)
[2023-05-22 15:13] LABS: Anion Gap 4 (5-15); BUN 9 mg/dL (7-18); BUN/Creat Ratio 11.6 RATIO (10-20); Calcium,Total 9.2 mg/dL (8.5-10.1); Chloride 102 mmol/L (98-107); Creatinine, Serum 0.78 mg/dL (0.55-1.02); EST Glomerular Filtration Rate 83 mL/min (>60); Est Glom Filt Rate - Afr Amer 100 mL/min (>60); Estimated Creatinine Clearance 82.98 ml/min; Glucose 323 mg/dL (74-106); Potassium 3.9 mmol/L (3.5-5.1); Sodium Level 136 mmol/L (136-145)
[2023-05-22 16:02] VITALS: RESP 16
== END 2023-05-22 16:03 | disposition home or self-care (01) ==
PROVIDERS: Nurse Practitioner; Emergency Provider Emergency Medicine; Visit Provider Emergency Medicine
DX: M79.673 Pain in unspecified foot (principal); M06.9 Rheumatoid arthritis, unspecified; E11.40 Type 2 diabetes mellitus with diabetic neuropathy, unspecified; Z79.4 Long term (current) use of insulin; I10 Essential (primary) hypertension; I25.10 Atherosclerotic heart disease of native coronary artery without angina pectoris; E78.5 Hyperlipidemia, unspecified; F32.A Depression, unspecified; K21.9 Gastro-esophageal reflux disease without esophagitis; M81.0 Age-related osteoporosis without current pathological fracture; G47.30 Sleep apnea, unspecified; F12.90 Cannabis use, unspecified, uncomplicated; F17.210 Nicotine dependence, cigarettes, uncomplicated; Z79.899 Other long term (current) drug therapy; Z79.82 Long term (current) use of aspirin; Z86.711 Personal history of pulmonary embolism; Z86.718 Personal history of other venous thrombosis and embolism
CPT/HCPCS: 73630; 80048; 85025; 96374; 99282; A4216; J2405

== ENCOUNTER 2023-05-26 09:49 | Emergency (ER) | payer MEDICAID, SELFPAY ==
[2023-05-26 09:50] VITALS: BP 142/94; PULSE 109; RESP 18; TEMP 35.9; O2SAT 100
--- NOTE | 2023-05-26 10:33 | ED.VIS.GI ---
HPI HPI - GI History of Present Illness Chief Complaint: Nausea/Vomiting Informant: patient Nausea/Vomiting/Emesis GI Symptom: Positive for Nausea and Vomiting Onset: Days Quality: Positive for Nonbilious Severity: Mild Diarrhea/Melena/Hematochezia GI Symptom: Negative for Diarrhea, Melena or Hematochezia Associated Symptoms Associated Symptoms: Negative for Dysuria, Frequency, Hematuria or Urgency Narrative Narrative: 52yo female history of CAD, CHF, diabetes, DVT and significant osteoporosis. States she was leaning over a grocery cart the other day when she thinks he may have broke one of her right ribs. She has had rib cage pain since that time. In the last 3 days after taking her Trulicity she said she has had nausea and vomiting. This began on . She is thrown up 4 times this morning. She denies any fever. No dysuria. No diarrhea. No melena or hematemesis. Her gallbladder was taken out many years ago. She denies any significant abdominal pain. Prior similar symptoms: Yes Recent Illness/Hospitalization: No PFSH PFSH Medical History Acute dyspnea Aftercare following surgery of the circulatory system Alcohol abuse Amputation toe CAD (coronary artery disease), [place] coronary artery CHF (congestive heart failure) Depression Diabetes type 2, uncontrolled DVT (deep venous thrombosis) Essential hypertension GERD (gastroesophageal reflux disease) Hx of fracture of humerus Hyperlipidemia Hypoxemia Ischemic cardiomyopathy Myocardial infarct Osteoporosis Pericardial effusion Psychiatric disorder Pulmonary embolism Rheumatoid arthritis Seizures Sleep apnea Smoker Substance abuse Toe amputee Home Medications cholecalciferol (vitamin D3) 25 mcg (1,000 unit) tablet 1,000 unit PO DAILY vitamin 07/25/22 [History Last Taken 02/01/23] calcium carbonate 500 mg calcium (1,250 mg) tablet 1 tablet PO DAILY supplement 08/09/22 [History Last Taken 02/01/23] aspirin 81 mg capsule 81 mg PO DAILY heart health 08/10/22 [History Last Taken 02/01/23] nicotine 21 mg/24 hr daily transdermal patch 21 mg transdermal DAILY stop smoking #30 ea 09/02/22 [Rx Last Taken 02/01/23] dulaglutide 3 mg/0.5 mL subcutaneous pen injector (Trulicity) 3 mg subcut QWEEK diabetes 02/02/23 [History Last Taken 02/01/23] atorvastatin 80 mg tablet 80 mg PO DAILY cholesterol #30 tabs 02/03/23 [Rx Last Taken Unknown] clopidogrel 75 mg tablet 75 mg PO DAILY anti platelet #30 tabs 02/03/23 [Rx Last Taken Unknown] escitalopram oxalate 10 mg tablet (Lexapro) 10 mg PO DAILY mental health #30 tabs 02/03/23 [Rx Last Taken Unknown] insulin glargine 100 unit/mL subcutaneous solution (Lantus U-100 Insulin) 25 unit subcut BID diabetes 02/27/23 [History Last Taken Unknown] dapagliflozin propanediol 10 mg tablet (Farxiga) 10 mg PO DAILY diabetes #90 tabs 03/26/23 [Rx Last Taken Unknown] pantoprazole 40 mg tablet,delayed release 40 mg PO DAILY reflux 04/18/23 [History Last Taken Unknown] simethicone 125 mg capsule 125 mg PO TID-QID PRN abdominal distention 04/18/23 [History Last Taken Unknown] carvedilol 12.5 mg tablet 12.5 mg PO BIDCM #60 tabs 05/07/23 [Rx Last Taken Unknown] furosemide 40 mg tablet 40 mg PO BIDLX #60 tabs 05/07/23 [Rx Last Taken Unknown] sacubitril 24 mg-valsartan 26 mg tablet (Entresto) 1 tab PO BID 30 days #60 tabs 05/07/23 [Rx Last Taken Unknown] spironolactone 25 mg tablet 25 mg PO DAILY #30 tabs 05/07/23 [Rx Last Taken Unknown] gabapentin 300 mg capsule 300 mg PO TID #90 caps 05/22/23 [Rx Last Taken Unknown] ondansetron 4 mg disintegrating tablet 4 mg PO Q8H PRN PRN Nausea #10 tabs 05/22/23 [Rx Last Taken Unknown] ondansetron 4 mg disintegrating tablet 4 mg PO Q6H PRN nausea and vomiting #10 tabs 05/26/23 [Rx Last Taken Unknown] oxycodone-acetaminophen 5 mg-325 mg tablet (Percocet) 1 tab PO Q8H PRN pain 5 days #14 tabs 05/26/23 [Rx Last Taken Unknown] Allergy/AdvReac Type Severity Reaction Status Date / Time latex Allergy Hives Verified 05/26/23 09:49 Family History Mother Thyroid disorder Diabetes Hypertension Grandmother Diabetes Uncle Diabetes Aunt Diabetes Other Heart disease Surgical History History of appendectomy History of cholecystectomy Social History household members: spouse and children housing: house Smoking Status: Current every day smoker tobacco type: cigarettes alcohol intake: never substance use type: marijuana what type of physical activity do you participate in: none do you feel safe at home: Yes ROS ROS ED ROS Narrative Nausea and vomiting. Review of Systems ROS Unobtainable: Denies due to encephalopathy Constitutional Constitutional ED: Denies chills or fever(s) ENT ENT ED: Denies ear pain Cardiovascular Cardiovascular: Denies chest pain Respiratory/Chest Respiratory/Chest: Denies cough or dyspnea Gastrointestinal Gastrointestinal: Reports nausea and vomiting; Denies abdominal pain, constipation, diarrhea or melena Genitourinary Genitourinary ED: Denies dysuria or hematuria Musculoskeletal Musculoskeletal: Denies arthralgias Integumentary Denies abscess Neurologic Neurologic: Denies headache(s) Psychiatric Psychiatric: Denies anxiety Endocrine Endocrinology: Denies polydipsia Hematologic/Lymphatic Hematologic/Lymphatic: Denies easy bleeding Allergic/Immunologic Allergic/Immunologic ED: Denies mouth swelling, tongue swelling or urticaria EXAM Physical Exam Narrative Exam Narrative: 52-year-old female no acute distress. Vital signs are stable afebrile. Pulse ox 100% on room air no signs of hypoxia. H EENT exam patient is without teeth. Tongue midline. Mildly dry mucous membranes. Neck nontender no JVD. No lymphadenopathy. Lungs clear to auscultation bilaterally. Heart tachycardic rate about 110 no murmur. Tenderness over right rib cage. No crepitus or subcu air. No bruising or signs of trauma. Left rib cage and sternum are nontender. Back is nontender. Abdomen is soft and nontender. Normal bowel sounds without peritoneal signs. No distention. Soft. Moving all 4 extremities. Nontender no edema. Patient is awake and alert with no focal motor deficits. Const Vital Signs: 05/26/23 09:50 Temperature 96.6 F L Temperature Source Temporal Pulse Rate 109 H Respiratory Rate 18 Blood Pressure 142/94 H Blood Pressure Mean 110 Pulse Ox 100 Oxygen Delivery Method Room Air Positive well nourished and well developed; Negative for obese, cachectic, contractures or unkempt General Appearance ED: well developed and NAD; Negative for unkempt, cachectic, contractures or pallor Nutritional Appearance: Negative for cachectic or obese HEENT Reports dry mucous membranes; Denies moist mucous membranes normocephalic and atraumatic; Negative for trauma or tenderness Mouth ED: Yes dry mucous membranes Mouth: dry mucous membranes Eyes PERRL and EOMs intact bilaterally General Eye ED: Negative for pale conjunctiva or scleral icterus Neck no lymphadenopathy, supple and no JVD General: Negative for tenderness Carotids: Negative for other Lymph Lymphatic: Negative for other Resp normal respiratory effort and clear to auscultation bilaterally Effort and Inspection: Negative for respiratory distress Auscultation: Negative for rales, rhonchi, wheezes or diminished lung sounds Cardio regular rhythm, S1 normal heart sound, S2 normal heart sound and no murmurs; Negative for regular rate Rate: tachycardic Rhythm: Negative for abnormal rhythm GI non-tender, non-distended and no masses Inspection: Negative for abdominal distention Auscultation: normoactive bowel sounds Palpation: soft; Negative for tender, guarding, rigid, mass, pulsatile mass or rebound tenderness present Back/Spine no CVA tenderness General Back: Negative for CVA tenderness Cervical Spine: Negative for cervical spine tenderness Thoracic Spine / Upper Back: Negative for thoracic spinal tenderness Lumbar Spine / Lower Back: Negative for lumbar spinal tenderness Coccyx: Negative for other Extremity full ROM General Extremety ED: Negative for edema, tenderness or other findings General Extremity: Negative for edema or other findings Neuro CN's II-XII intact bilaterally and moves all extremities Sensorium / Orientation: alert, oriented to person, oriented to place and oriented to time; Negative for orientation impaired, confused, lethargic or stuporous Motor Exam: strength 5/5 throughout Psych mental status grossly normal and thought process normal Appearance: Negative for unkempt Attitude: No agitated Mood & Affect: Negative for depressed, anxious or tearful Skin no wounds General Skin Exam: Negative for jaundice or pallor Lesions: no lesions Rashes: no rashes Trauma: Negative for abrasion Nails: Negative for discolored MDM MDM MDM Narrative Medical decision making narrative: 52-year-old female with nausea and vomiting will be treated with IV fluids and IV Zofran. Screening labs will be obtained. Her abdomen is benign. I do not think she needs any abdominal imaging. Also recently she injured her right rib cage and chest x-ray will be obtained for possible rib fracture. Repeat exam patient is doing well at 11:30 AM. She requested additional nausea medication she will be given some morphine for the suspected right rib fracture. She is comfortable being discharged home on Percocet for pain and Zofran for nausea. History & Record Review Discussion w/independent historian: Patient Additional record(s) reviewed:: Prior inpatient record, Prior outpatient record, Prior ED visit and Prior labs Lab Data Attestation: I reviewed the patient's lab results. Lab results narrative: CBC shows a normal white count 9. H&H 13 and 43. Platelets 220. Electrolytes show potassium of 3.2 gap of 5 normal BUN and creatinine of 5.6. Glucose 247. Chest x-ray shows chronic changes possible anterior mid right sixth rib fracture. Labs: Laboratory Results - last 24 hr 05/26/23 10:40 WBC 9.1 RBC 5.34 Hgb 13.9 Hct 43.8 MCV 82.0 MCH 26.0 L MCHC 31.7 L RDW Std Deviation 42.0 RDW Coeff of [place] 14.4 Plt Count 220 MPV 9.8 Immature Gran % (Auto) 0.300 Neut % (Auto) 82.1 H Lymph % (Auto) 11.0 L [place] % (Auto) 4.5 Eos % (Auto) 1.3 Baso % (Auto) 0.8 Absolute Neuts (auto) 7.5 Absolute Lymphs (auto) 1.00 Nucleated RBC % 0 Sodium 139 Potassium 3.2 L Chloride 103 Carbon Dioxide 31.0 Anion Gap 5 BUN 5 L Creatinine 0.68 Estim Creat Clear Calc 95.18 Est GFR (MDRD) Af Amer 116 Est GFR (MDRD) Non-Af 96 BUN/Creatinine Ratio 7.3 L Glucose 247 H Calcium 9.1 Radiography Chest X-Ray - ED: 2 View, Read by ED Physician, Heart, Lungs, Mediastinum, Chronic Changes and Right Rib Fx Diagnostic Testing: Clinical Impression(s) from Imaging Studies Chest X-Ray 05/26/23 10:53 IMPRESSION: Chronic interstitial changes without a superimposed acute pulmonary process Electronically Signed: Pedro Lopez MD at 11:15 EST , Chest x-ray, 2 views, AP and lateral, interpreted by myself shows no acute process except suspected right rib fracture. No pneumonia. Normal cardiac silhouette and lung stephens. Also interpreted by the radiologist. Discharge Plan Triage Chief Complaint: Nausea/Vomiting ED Provider: Ananda Coyle Dx/Rx/DC Orders Clinical Impression: Right rib fracture, History of osteoporosis, History of diabetes mellitus, Vomiting Instructions: ED Rib Fracture, ED Vomiting (Adult) Prescriptions: New ondansetron 4 mg tablet,disintegrating 4 mg PO Q6H PRN (Reason: nausea and vomiting) Qty: 10 0RF oxycodone-acetaminophen [Percocet] 5-325 mg tablet 1 tab PO Q8H PRN (Reason: pain) 5 Days Qty: 14 0RF No Action calcium carbonate 500 mg calcium (1,250 mg) tablet 1 tablet PO DAILY insulin glargine [Lantus U-100 Insulin] 100 unit/mL solution 25 unit subcut BID pantoprazole 40 mg tablet,delayed release (DR/EC) 40 mg PO DAILY simethicone 125 mg capsule 125 mg PO TID-QID PRN (Reason: abdominal distention) cholecalciferol (vitamin D3) 25 mcg (1,000 unit) tablet 1,000 unit PO DAILY Patient Comments: TAKE 1 TABLET DAILY aspirin 81 mg Capsule 81 mg PO DAILY nicotine 21 mg/24 hr Patch 24 Hour 21 mg transdermal DAILY Qty: 30 0RF Trulicity 3 mg/0.5 mL pen injector 3 mg SUBCUT QWEEK Hold Instructions: Ordered Patient Comments: INJECT 3 (THREE) MG SUBCUTANEOUSLY EVERY WEEK Dr. Sousa informed patient to hold this medication d/t side effects. has not had it in a couple of weeks clopidogrel 75 mg Tablet 75 mg PO DAILY Qty: 30 0RF Patient Comments: patient stated pretty sure I still take that atorvastatin 80 mg tablet 80 mg PO DAILY Qty: 30 0RF escitalopram oxalate [Lexapro] 10 mg tablet 10 mg PO DAILY Qty: 30 0RF carvedilol 12.5 mg Tablet 12.5 mg PO BIDCM Qty: 60 0RF Entresto 24-26 mg Tablet 1 tab PO BID 30 Days Qty: 60 0RF furosemide 40 mg Tablet 40 mg PO BIDLX Qty: 60 0RF spironolactone 25 mg Tablet 25 mg PO DAILY Qty: 30 0RF gabapentin 300 mg capsule 300 mg PO TID Qty: 90 0RF Rx Instructions: Take 300 mg tablet only twice a day for the first 3 days then you may continue through 100 mg 3 times a day for the remainder of the prescription ondansetron 4 mg tablet,disintegrating 4 mg PO Q8H PRN PRN (Reason: Nausea) Qty: 10 0RF Farxiga 10 mg tablet 10 mg PO DAILY Qty: 90 3RF Patient Comments: patient stated I know I am supposed to be taking this one but I never got a notification from the pharmacy to come pick it up [facility] [Primary Care Provider] - 3-5 Days if not improving Activity Restrictions/Additional Instructions: You have a broken rib #6 on the right. Motrin and Tylenol for pain or Percocet. Do not use Tylenol for using the Percocet. Zofran as needed for nausea. Follow-up with your primary care provider if not improving. The rib fracture will take weeks to a month or longer to start healing. Disposition Disposition: Home, Self Care
[2023-05-26] MEDS: Ketorolac 30 MG/ML Syringe IV (10:43)
[2023-05-26] MEDS: Ondansetron 4 MG/2 ML Vial IV ×2 (10:43→11:59)
[2023-05-26] MEDS: 0.9% Normal Saline (1000mL) 1,000 ML 1000 ML IV (10:43)
[2023-05-26 10:44] VITALS: BMI 26.3
[2023-05-26 10:51] LABS: Absolute Neutrophil Count 7.5 X10^3/uL (2.0-7.7); Basophil# 0.07 X10^3/uL; Basophil% 0.8 % (0-1); Eosinophil# 0.12 X10^3/uL; Eosinophils% 1.3 % (0-5); Hematocrit 43.8 % (37-47); Hemoglobin 13.9 g/dL (12.0-15.0); Mean Corp Hgb Conc 31.7 g/dL (32-36); Mean Platelet Vol. 9.8 fl (6.2-12.0); Monocyte# 0.41 X10^3/uL; Monocyte% 4.5 % (0-10); NRBC Flagged by Analyzer 0 % (0-5); Neutrophil # 7.46 X10^3/uL (2.7-7.7); Neutrophil % 82.1 % (47-70); Platelet Count 220 K/mm3 (150-450); RBC Distribution Width CV 14.4 % (11.6-14.6); Red Blood Count 5.34 M/mm3 (4.2-5.4); White Blood Count 9.1 K/mm3 (4.4-11.0)
--- NOTE | 2023-05-26 10:53 | RAD_ITS ---
STUDY: X-RAY CHEST REASON FOR EXAM: Female, 52 years old. right rib pain (no rib series) TECHNIQUE: PA and lateral views of the chest. COMPARISON: 05/03/2023 FINDINGS: Chronic interstitial changes without a superimposed acute pulmonary process. There is no demonstrated pleural abnormality. Normal size heart. Normal mediastinum and edmundo. Normal visualized pulmonary arteries. Normal visualized aortic arch and descending thoracic aorta. There are diffuse degenerative changes of the visualized thoracic spine. There is degenerative osteoarthritis of the bilateral shoulders. There is no demonstrated abnormality of the visualized soft tissue structures of the upper abdomen. RAD/Chest PA and Lateral IMPRESSION: Chronic interstitial changes without a superimposed acute pulmonary process Electronically Signed: Pedro Lopez MD at 11:15 EST ,
[2023-05-26 11:04] LABS: Anion Gap 5 (5-15); BUN 5 mg/dL (7-18); BUN/Creat Ratio 7.3 RATIO (10-20); Calcium,Total 9.1 mg/dL (8.5-10.1); Chloride 103 mmol/L (98-107); Creatinine, Serum 0.68 mg/dL (0.55-1.02); EST Glomerular Filtration Rate 96 mL/min (>60); Est Glom Filt Rate - Afr Amer 116 mL/min (>60); Estimated Creatinine Clearance 95.18 ml/min; Glucose 247 mg/dL (74-106); Potassium 3.2 mmol/L (3.5-5.1); Sodium Level 139 mmol/L (136-145)
[2023-05-26 11:54] VITALS: BP 137/82; PULSE 79; RESP 16; O2SAT 96
[2023-05-26] MEDS: morphine 8 MG/ML Syringe 6 MG IV (11:59)
[2023-05-26 12:07] VITALS: BP 138/74; PULSE 82; RESP 16; O2SAT 96
== END 2023-05-26 12:08 | disposition home or self-care (01) ==
PROVIDERS: Emergency Provider Emergency Medicine; Visit Provider Emergency Medicine
DX: S22.31XA Fracture of one rib, right side, initial encounter for closed fracture (principal); I11.0 Hypertensive heart disease with heart failure; I50.9 Heart failure, unspecified; E11.9 Type 2 diabetes mellitus without complications; R11.2 Nausea with vomiting, unspecified; E78.5 Hyperlipidemia, unspecified; M81.0 Age-related osteoporosis without current pathological fracture; I25.10 Atherosclerotic heart disease of native coronary artery without angina pectoris; I25.5 Ischemic cardiomyopathy; F12.90 Cannabis use, unspecified, uncomplicated; F17.210 Nicotine dependence, cigarettes, uncomplicated; Z90.49 Acquired absence of other specified parts of digestive tract; Z86.718 Personal history of other venous thrombosis and embolism; X58.XXXA Exposure to other specified factors, initial encounter; Y92.512 Supermarket, store or market as the place of occurrence of the external cause; I25.2 Old myocardial infarction; K21.9 Gastro-esophageal reflux disease without esophagitis
CPT/HCPCS: 71046; 80048; 85025; 96361; 96374; 96375; 96376; 99283; J7030; A4216; J2405

== ENCOUNTER 2023-06-12 18:43 | Inpatient (IN) | payer MEDICAID, SELFPAY ==
[2023-06-12 18:57] VITALS: BP 126/87; PULSE 89; RESP 16; TEMP 36.6; O2SAT 93; BMI 54.8
[2023-06-12 19:59] VITALS: BP 134/78; PULSE 88; RESP 16; TEMP 37.2; O2SAT 92
--- NOTE | 2023-06-12 20:15 | EDS_ITS ---
HPI History of Present Illness Chief Complaint: Fever Informant: patient Onset/Context/Timing Onset: Yesterday Context: Sudden Onset Timing: Continuous Quality: I cannot catch my breath Location: Chest Worsened by: Nothing Relieved by: Nothing Narrative Narrative: Patient presents with shortness of breath and lower extremity swelling that has been getting worse since yesterday. Patient states it began rather suddenly. Patient states she feels like she cannot catch her breath. Patient states nothing makes her breathing worse and nothing makes it better. Patient states she has been taking her Lasix as prescribed. Patient admits to some subjective chills but denies any fevers. Patient admits to some nausea and vomiting. Patient admits to a cough but denies any sputum production. [facility] Medical History Acute dyspnea Aftercare following surgery of the circulatory system Alcohol abuse Amputation toe CAD (coronary artery disease), [place] coronary artery CHF (congestive heart failure) Depression Diabetes type 2, uncontrolled DVT (deep venous thrombosis) Essential hypertension GERD (gastroesophageal reflux disease) Hx of fracture of humerus Hyperlipidemia Hypoxemia Ischemic cardiomyopathy Myocardial infarct Osteoporosis Pericardial effusion Psychiatric disorder Pulmonary embolism Rheumatoid arthritis Seizures Sleep apnea Smoker Substance abuse Toe amputee Home Medications cholecalciferol (vitamin D3) 25 mcg (1,000 unit) tablet 1,000 unit PO DAILY vitamin 07/25/22 [History Last Taken 02/01/23] calcium carbonate 500 mg calcium (1,250 mg) tablet 1 tablet PO DAILY supplement 08/09/22 [History Last Taken 02/01/23] aspirin 81 mg capsule 81 mg PO DAILY heart health 08/10/22 [History Last Taken 02/01/23] nicotine 21 mg/24 hr daily transdermal patch 21 mg transdermal DAILY stop smoking #30 ea 09/02/22 [Rx Last Taken 02/01/23] dulaglutide 3 mg/0.5 mL subcutaneous pen injector (Trulicity) 3 mg subcut QWEEK diabetes 02/02/23 [History Last Taken 02/01/23] atorvastatin 80 mg tablet 80 mg PO DAILY cholesterol #30 tabs 02/03/23 [Rx Last Taken Unknown] clopidogrel 75 mg tablet 75 mg PO DAILY anti platelet #30 tabs 02/03/23 [Rx Last Taken Unknown] escitalopram oxalate 10 mg tablet (Lexapro) 10 mg PO DAILY mental health #30 tabs 02/03/23 [Rx Last Taken Unknown] insulin glargine 100 unit/mL subcutaneous solution (Lantus U-100 Insulin) 25 unit subcut BID diabetes 02/27/23 [History Last Taken Unknown] dapagliflozin propanediol 10 mg tablet (Farxiga) 10 mg PO DAILY diabetes #90 tabs 03/26/23 [Rx Last Taken Unknown] pantoprazole 40 mg tablet,delayed release 40 mg PO DAILY reflux 04/18/23 [History Last Taken Unknown] simethicone 125 mg capsule 125 mg PO TID-QID PRN abdominal distention 04/18/23 [History Last Taken Unknown] carvedilol 12.5 mg tablet 12.5 mg PO BIDCM #60 tabs 05/07/23 [Rx Last Taken Unknown] furosemide 40 mg tablet 40 mg PO BIDLX #60 tabs 05/07/23 [Rx Last Taken Unknown] sacubitril 24 mg-valsartan 26 mg tablet (Entresto) 1 tab PO BID 30 days #60 tabs 05/07/23 [Rx Last Taken Unknown] spironolactone 25 mg tablet 25 mg PO DAILY #30 tabs 05/07/23 [Rx Last Taken Unknown] gabapentin 300 mg capsule 300 mg PO TID #90 caps 05/22/23 [Rx Last Taken Unknown] ondansetron 4 mg disintegrating tablet 4 mg PO Q8H PRN PRN Nausea #10 tabs 05/22/23 [Rx Last Taken Unknown] ondansetron 4 mg disintegrating tablet 4 mg PO Q6H PRN nausea and vomiting #10 tabs 05/26/23 [Rx Last Taken Unknown] oxycodone-acetaminophen 5 mg-325 mg tablet (Percocet) 1 tab PO Q8H PRN pain 5 days #14 tabs 05/26/23 [Rx Last Taken Unknown] Allergy/AdvReac Type Severity Reaction Status Date / Time latex Allergy Hives Verified 05/26/23 09:49 Family History Mother Thyroid disorder Diabetes Hypertension Grandmother Diabetes Uncle Diabetes Aunt Diabetes Other Heart disease Surgical History History of appendectomy History of cholecystectomy Social History household members: spouse and children housing: house Smoking Status: Current every day smoker tobacco type: cigarettes alcohol intake: never substance use type: marijuana what type of physical activity do you participate in: none do you feel safe at home: Yes EXAM Physical Exam Const Vital Signs: 06/12/23 18:57 06/12/23 19:59 06/12/23 19:59 Temperature 97.8 F 98.9 F Temperature Source Temporal Temporal Pulse Rate 89 88 Respiratory Rate 16 16 Respiratory Effort Normal Respiratory Pattern Normal Blood Pressure 126/87 H 134/78 H Blood Pressure Mean 100 96 Pulse Ox 93 92 Oxygen Delivery Method Room Air Room Air Oxygen Flow Rate (L/min) 06/12/23 21:46 06/12/23 21:45 06/12/23 22:56 Temperature Temperature Source Pulse Rate 98 Respiratory Rate 20 H Respiratory Effort Respiratory Pattern Blood Pressure 129/88 H Blood Pressure Mean 102 Pulse Ox 90 83 Oxygen Delivery Method Room Air Room Air Oxygen Flow Rate (L/min) 06/12/23 23:01 06/12/23 23:54 Temperature Temperature Source Pulse Rate Respiratory Rate Respiratory Effort Respiratory Pattern Blood Pressure 129/88 H Blood Pressure Mean Pulse Ox 95 Oxygen Delivery Method Nasal Cannula Oxygen Flow Rate (L/min) 4 Positive well nourished and well developed General Appearance ED: well developed and NAD HEENT Reports moist mucous membranes Neck supple and no JVD Resp normal respiratory effort Auscultation: rales bilateral lower Cardio regular rate and regular rhythm GI non-tender and non-distended Palpation: soft Extremity General Extremety ED: Yes edema and tenderness General Extremity: edema Neuro oriented x3, CN's II-XII intact bilaterally and no sensory deficits noted Sensorium / Orientation: alert Motor Exam: strength 5/5 throughout Psych mental status grossly normal Skin no wounds MDM MDM MDM Narrative Medical decision making narrative: Differential diagnosis includes congestive heart failure, pulmonary embolism, pneumonia, pneumothorax, cardiac dysrhythmia, cardiac ischemia, viral bronchitis, and upper respiratory infection. EKG will be obtained to assess for cardiac dysrhythmia and cardiac ischemia. CTA of the chest will be obtained to assess for pulmonary embolism, congestive heart failure, pneumonia, and pneumothorax. CBC will be obtained to assess for leukocytosis and anemia. Basic metabolic profile will be obtained to assess for electrolyte abnormality and renal function. High-sensitivity troponin will be obtained to assess for cardiac ischemia. BNP will be obtained to assess for congestive heart failure. Lab Data Attestation: I reviewed the patient's lab results. Lab results narrative: CBC was reviewed and was within normal limits. Basic metabolic profile was reviewed and was within normal limits. High-sensitivity troponin was reviewed and was normal at 22. PT was INR and PTT were reviewed and were within normal limits. BNP was reviewed and was elevated at 596.3. Labs: Laboratory Results - last 24 hr 06/12/23 06/12/23 20:30 22:05 WBC 8.0 RBC 4.92 Hgb 12.7 Hct 40.0 MCV 81.3 MCH 25.8 L MCHC 31.8 L RDW Std Deviation 41.9 RDW Coeff of [place] 14.4 Plt Count 150 MPV 11.3 Immature Gran % (Auto) 0.300 Neut % (Auto) 68.5 Lymph % (Auto) 20.3 [place] % (Auto) 6.0 Eos % (Auto) 3.9 Baso % (Auto) 1.0 Absolute Neuts (auto) 5.5 Absolute Lymphs (auto) 1.61 Nucleated RBC % 0 Differential Comment SCANNED PT Cancelled 12.7 INR Cancelled 1.0 APTT Cancelled 27.5 Sodium 136 Potassium 4.0 Chloride 103 Carbon Dioxide 27.0 Anion Gap 6 BUN 9 Creatinine 0.75 Estim Creat Clear Calc 140.88 Est GFR (MDRD) Af Amer 105 Est GFR (MDRD) Non-Af 86 BUN/Creatinine Ratio 12.0 Glucose 272 H Calcium 9.1 Troponin I High Sens 22 B-Natriuretic Peptide 596.3 H Radiography CTA PE Study: No Evidence of PE and No Evidence of Dissection Diagnostic Testing: Clinical Impression(s) from Imaging Studies Chest CTA 06/12/23 21:05 IMPRESSION: Negative CTA chest examination, without a demonstrated pulmonary embolism or arterial dissection. Cardiomegaly with mild bilateral pleural effusions and early congestive heart failure. Right adrenal adenoma measuring 2.2 cm. No further follow-up imaging recommended. Left upper no pole simple cyst measuring 2 cm, with no further follow-up imaging recommended. Electronically Signed: Laura Sam MD at 23:00 EST , CTA of the chest was obtained. There is no pulmonary embolism or aortic di ssection. There is cardiomegaly with mild bilateral pleural effusions and early congestive heart failure. This was interpreted by the radiologist and was also independently reviewed by myself. EKG Initial EKG: Attestation: I personally reviewed and interpreted this EKG as follows: Interpretation: Sinus Rhythm (97) and Non-Specific ST Changes Comments: EKG was obtained. On my independent interpretation, it shows normal sinus rhythm with a rate of 97. CT interval was normal at 178 ms. QRS interval was normal at 110 ms. QTc interval was normal at 447 ms. There is left axis deviation at -41. There are nonspecific ST-T wave changes noted. Prior EKG tracings: available for review Prior: Unchanged (05/04/2023) Management Discussion w/another healthcare provider: Hospitalist Treatment and Re-Evaluation :: Patient was given aspirin initially. Patient was given a dose of morphine and Zofran for pain and nausea. Patient's oxygenation dropped to 83% on room air. Patient was started on oxygen. Patient was given Lasix and nitroglycerin ointment. Due to her hypoxia, I feel the patient would benefit from inpatient treatment. Case will be discussed with the hospitalist. Discharge Plan Triage Chief Complaint: Fever ED Provider: Riccardo Hillman Dx/Rx/DC Orders Clinical Impression: CHF (congestive heart failure), Bilateral pleural effusion, Hypoxia Prescriptions: No Action calcium carbonate 500 mg calcium (1,250 mg) tablet 1 tablet PO DAILY insulin glargine [Lantus U-100 Insulin] 100 unit/mL solution 25 unit subcut BID pantoprazole 40 mg tablet,delayed release (DR/EC) 40 mg PO DAILY simethicone 125 mg capsule 125 mg PO TID-QID PRN (Reason: abdominal distention) cholecalciferol (vitamin D3) 25 mcg (1,000 unit) tablet 1,000 unit PO DAILY Patient Comments: TAKE 1 TABLET DAILY aspirin 81 mg Capsule 81 mg PO DAILY nicotine 21 mg/24 hr Patch 24 Hour 21 mg transdermal DAILY Qty: 30 0RF Trulicity 3 mg/0.5 mL pen injector 3 mg SUBCUT QWEEK Hold Instructions: MD Ordered Patient Comments: INJECT 3 (THREE) MG SUBCUTANEOUSLY EVERY WEEK Dr. Calabretta informed patient to hold this medication d/t side effects. has not had it in a couple of weeks clopidogrel 75 mg Tablet 75 mg PO DAILY Qty: 30 0RF Patient Comments: patient stated pretty sure I still take that atorvastatin 80 mg tablet 80 mg PO DAILY Qty: 30 0RF escitalopram oxalate [Lexapro] 10 mg tablet 10 mg PO DAILY Qty: 30 0RF carvedilol 12.5 mg Tablet 12.5 mg PO BIDCM Qty: 60 0RF Entresto 24-26 mg Tablet 1 tab PO BID 30 Days Qty: 60 0RF furosemide 40 mg Tablet 40 mg PO BIDLX Qty: 60 0RF spironolactone 25 mg Tablet 25 mg PO DAILY Qty: 30 0RF gabapentin 300 mg capsule 300 mg PO TID Qty: 90 0RF Rx Instructions: Take 300 mg tablet only twice a day for the first 3 days then you may continue through 100 mg 3 times a day for the remainder of the prescription ondansetron 4 mg tablet,disintegrating 4 mg PO Q8H PRN PRN (Reason: Nausea) Qty: 10 0RF ondansetron 4 mg tablet,disintegrating 4 mg PO Q6H PRN (Reason: nausea and vomiting) Qty: 10 0RF oxycodone-acetaminophen [Percocet] 5-325 mg tablet 1 tab PO Q8H PRN (Reason: pain) 5 Days Qty: 14 0RF Farxiga 10 mg tablet 10 mg PO DAILY Qty: 90 3RF Patient Comments: patient stated I know I am supposed to be taking this one but I never got a notification from the pharmacy to come pick it up Primary Care Provider: [facility] Referrals: [facility] Finney [Primary Care Provider] - Disposition Disposition: Acute Care Hospital [facility]
--- NOTE | 2023-06-12 21:05 | CT_ITS ---
STUDY: CTA CHEST REASON FOR EXAM: Female, 52 years old. Dyspnea RADIATION DOSAGE (If Supplied By Facility): CTDIvol = ( 16.17 ) mGy, DLP = ( 438.17 ) mGycm TECHNIQUE: The examination was performed with the intravenous administration of IV 100mL Isovue-370. Post-processing of the angiographic images was performed, with multiplanar reformation and 3D reconstruction. Individualized dose optimization techniques were used for this CT. COMPARISON: 02/02/2023. FINDINGS: Normal enhancement of the main pulmonary artery and right and left pulmonary arteries. Normal enhancement of the bilateral peripheral pulmonary arteries. There is no demonstrated pulmonary embolism. There is atherosclerotic calcification of the aortic arch with tortuosity. There is no demonstrated aortic dissection. Mild to moderate cardiomegaly. Coronary artery calcification seen. Normal mediastinum. Normal hilar regions. Normal visualized trachea and bronchi. The lungs are well expanded. Prominence of the subpleural interstitial septal with mild groundglass opacities concerning for early congestive heart failure. Mild bilateral pleural effusions. Normal chest wall structures. There are degenerative changes of thoracic spine. Upper abdomen reveals a low attenuation structure within the upper pole of the left kidney measuring 2 cm, likely cyst but not entirely included in the [id number]. There is fullness of the right adrenal gland measuring 2.2 cm most compatible with adenoma. CT/CTA Chest W/WO Contrast IMPRESSION: Negative CTA chest examination, without a demonstrated pulmonary embolism or arterial dissection. Cardiomegaly with mild bilateral pleural effusions and early congestive heart failure. Right adrenal adenoma measuring 2.2 cm. No further follow-up imaging recommended. Left upper no pole simple cyst measuring 2 cm, with no further follow-up imaging recommended. Electronically Signed: Laura Sam MD at 23:00 EST ,
--- NOTE | 2023-06-12 21:05 | EKG12_ITS ---
Test Reason : DYSRHYTHMIA Blood Pressure : / mmHG Vent. Rate : 097 BPM Atrial Rate : 097 BPM P-R Int : 178 ms QRS Dur : 110 ms QT Int : 352 ms P-R-T Axes : 066 -41 097 degrees QTc Int : 447 ms Normal sinus rhythm Left axis deviation Minimal voltage criteria for LVH, may be normal variant ( Brian product ) Septal infarct (cited on or before 30-AUG-2022) T wave abnormality, consider lateral ischemia Abnormal ECG Confirmed by LORETA WHELAN MD ([id number]), online editor RIKY HOANG ([id number]) on 06/13/2023 9:17:06 AM Referred By: GARCIA Confirmed By:LORETA WHELAN MD
[2023-06-12 21:37] LABS: Absolute Lymphocyte Count 1.61 X10^3/uL (0.83-4.51); Absolute Neutrophil Count 5.5 X10^3/uL (2.0-7.7); Basophil# 0.08 X10^3/uL; Eosinophil# 0.31 X10^3/uL; Eosinophils% 3.9 % (0-5); Hemoglobin 12.7 g/dL (12.0-15.0); Lymphocyte # 1.61 X10^3/ul (0.83-4.51); Lymphocyte % 20.3 % (19-41); Mean Corp Hgb Conc 31.8 g/dL (32-36); Mean Corpuscular Hgb 25.8 pg (27.0-32.0); Mean Corpuscular Volume 81.3 fL (81-99); Mean Platelet Vol. 11.3 fl (6.2-12.0); Monocyte# 0.48 X10^3/uL; NRBC Flagged by Analyzer 0 % (0-5); Neutrophil # 5.45 X10^3/uL (2.7-7.7); Neutrophil % 68.5 % (47-70); POSITIVE COUNT YES; Platelet Count 150 K/mm3 (150-450); RBC Distribution Width CV 14.4 % (11.6-14.6); RBC Distribution Width SD 41.9 fl (35.1-43.9); Red Blood Count 4.92 M/mm3 (4.2-5.4)
[2023-06-12 21:45] VITALS: BP 129/88; PULSE 98; RESP 20; O2SAT 90
[2023-06-12] MEDS: Aspirin 81 MG TAB.CHEW 324 MG PO (21:52)
[2023-06-12 21:54] LABS: Differential Indicated SCAN CRITERIA MET
[2023-06-12 21:55] LABS: Differential Comment SCANNED
[2023-06-12 22:01] LABS: Anion Gap 6 (5-15); BUN 9 mg/dL (7-18); Calcium,Total 9.1 mg/dL (8.5-10.1); Chloride 103 mmol/L (98-107); Creatinine, Serum 0.75 mg/dL (0.55-1.02); EST Glomerular Filtration Rate 86 mL/min (>60); Est Glom Filt Rate - Afr Amer 105 mL/min (>60); Estimated Creatinine Clearance 140.88 ml/min; Glucose 272 mg/dL (74-106); Sodium Level 136 mmol/L (136-145); Troponin-I HS 22 pg/mL (3.0-54.0)
[2023-06-12 22:09] LABS: BNP,B-Type NATRIURETIC PEPTIDE 596.3 pg/mL (0-100)
[2023-06-12 22:24] LABS: Partial Thromboplast Time 27.5 Seconds (24.1-36.2); Prothrombin Time (Protime)PT. 12.7 SECONDS (11.7-14.9)
[2023-06-12] MEDS: Morphine 4 MG/ML Syringe IV (22:33)
[2023-06-12] MEDS: Ondansetron 4 MG/2 ML Vial IV (22:33)
[2023-06-12] MEDS: Furosemide 40 MG/4 ML Vial IV (22:34)
[2023-06-12 22:56] VITALS: O2SAT 83
[2023-06-12 23:01] VITALS: O2SAT 95
[2023-06-12 23:54] VITALS: BP 129/88
[2023-06-12] MEDS: Nitroglycerin Oint 1 INCH PACKET TD (23:54)
--- NOTE | 2023-06-13 00:12 | HP.PCM_ITS ---
HPI - General General Date of Admission: 06/13/23 Date of Service: 06/13/23 Chief Complaint: fever, shortness of breath HPI Narrative TRENTON DENTON, is a 52 F with a PMH as outlined who presents via the ED on 06/13/2022 with a complaint of fever as well as shortness of breath and bilateral lower extremity swelling. Her symptoms started hte day before admission and gradually worsened. Shortness of breath worsened with exertion. SHe denied any chest pain, palpitations, dizziness, nausea, vomiting or any other symptoms. Review of systems was otherwise negatiev. She is on lasix which she says she has been compliant with. Vitals in the ED were BP of 129/88, RR of 20, temp of 98.9F and she was saturating at 95% on 4L of oxygen. Her oxygen saturation actually dropped to 83% on room air. CBC and BMP were largely unremarkable. BNP was elevated at 596.3. Initial troponin was negative. EKG showed no acute ST changes. CTA of the chest done showed no evidence of PE and showed cardiomegaly with mild bilateral pleural effusions and early congestive heart failure as well as a right adrenal adenoma measuring 2.2 cm. She has been admitted and managed for acute exacerbation of heart failure. [facility] Medical History Acute dyspnea Aftercare following surgery of the circulatory system Alcohol abuse Amputation toe CAD (coronary artery disease), wiyot coronary artery CHF (congestive heart failure) Depression Diabetes type 2, uncontrolled DVT (deep venous thrombosis) Essential hypertension GERD (gastroesophageal reflux disease) Hx of fracture of humerus Hyperlipidemia Hypoxemia Ischemic cardiomyopathy Myocardial infarct Osteoporosis Pericardial effusion Psychiatric disorder Pulmonary embolism Rheumatoid arthritis Seizures Sleep apnea Smoker Substance abuse Toe amputee Home Medications cholecalciferol (vitamin D3) 25 mcg (1,000 unit) tablet 1,000 unit PO DAILY sapphire min 07/25/22 [History Last Taken 02/01/23] calcium carbonate 500 mg calcium (1,250 mg) tablet 1 tablet PO DAILY supplement 08/09/22 [History Last Taken 02/01/23] aspirin 81 mg capsule 81 mg PO DAILY heart health 08/10/22 [History Last Taken 02/01/23] nicotine 21 mg/24 hr daily transdermal patch 21 mg transdermal DAILY stop smoking #30 ea 09/02/22 [Rx Last Taken 02/01/23] atorvastatin 80 mg tablet 80 mg PO DAILY cholesterol #30 tabs 02/03/23 [Rx Last Taken Unknown] clopidogrel 75 mg tablet 75 mg PO DAILY anti platelet #30 tabs 02/03/23 [Rx Last Taken Unknown] escitalopram oxalate 10 mg tablet (Lexapro) 10 mg PO DAILY mental health #30 tabs 02/03/23 [Rx Last Taken Unknown] insulin glargine 100 unit/mL subcutaneous solution (Lantus U-100 Insulin) 25 unit subcut BID diabetes 02/27/23 [History Last Taken Unknown] dapagliflozin propanediol 10 mg tablet (Farxiga) 10 mg PO DAILY diabetes #90 tab s 03/26/23 [Rx Last Taken Unknown] pantoprazole 40 mg tablet,delayed release 40 mg PO DAILY reflux 04/18/23 [History Last Taken Unknown] simethicone 125 mg capsule 125 mg PO TID-QID PRN abdominal distention 04/18/23 [History Last Taken Unknown] carvedilol 12.5 mg tablet 12.5 mg PO BIDCM #60 tabs 05/07/23 [Rx Last Taken Unknown] furosemide 40 mg tablet 40 mg PO BIDLX #60 tabs 05/07/23 [Rx Last Taken Unknown] sacubitril 24 mg-valsartan 26 mg tablet (Entresto) 1 tab PO BID 30 days #60 tabs 05/07/23 [Rx Last Taken Unknown] spironolactone 25 mg tablet 25 mg PO DAILY #30 tabs 05/07/23 [Rx Last Taken Unknown] gabapentin 300 mg capsule 300 mg PO TID #90 caps 05/22/23 [Rx Last Taken Unknown] Allergy/AdvReac Type Severity Reaction Status Date / Time latex Allergy Hives Verified 05/26/23 09:49 Family History Mother Thyroid disorder Diabetes Hypertension Grandmother Diabetes Uncle Diabetes Aunt Diabetes Other Heart disease Surgical History History of appendectomy History of cholecystectomy Social History household members: spouse and children housing: house Smoking Status: Current every day smoker tobacco type: cigarettes alcohol intake: never substance use type: marijuana what type of physical activity do you participate in: none do you feel safe at home: Yes ROS Constitutional Constitutional: Reports fatigue, fever(s), malaise and weakness; Denies anorexia or chills Eyes Eyes: Denies change in vision ENT HEENT: Denies dysphagia, headache(s), loss taste/smell or nasal congestion Cardiovascular Cardiovascular: Reports edema, orthopnea, palpitations and paroxysmal nocturnal dyspnea; Denies chest pain or syncope Respiratory/Chest Respiratory/Chest: Reports cough, shortness of breath at rest, shortness of breath with exertion and wheezing Gastrointestinal Gastrointestinal: Denies abdominal pain, constipation, diarrhea, melena, nausea or vomiting Genitourinary Genitourinary: Denies dysuria Musculoskeletal Musculoskeletal: Denies back pain Neurologic Neurologic: Denies confusion, dizziness, focal weakness, headache(s), numbness or weakness Psychiatric Psychiatric: Denies anxiety Endocrine Endocrinology: Denies change in body appearance Vital Signs Vital Signs Vital Signs: 06/12/23 18:57 06/12/23 19:59 06/12/23 19:59 Temperature 97.8 F 98.9 F Temperature Source Temporal Temporal Pulse Rate 89 88 Respiratory Rate 16 16 Respiratory Effort Normal Respiratory Pattern Normal Blood Pressure 126/87 H 134/78 H Blood Pressure Mean 100 96 Pulse Ox 93 92 Oxygen Delivery Method Room Air Room Air Oxygen Flow Rate (L/min) 06/12/23 21:46 06/12/23 21:45 06/12/23 22:56 Temperature Temperature Source Pulse Rate 98 Respiratory Rate 20 H Respiratory Effort Respiratory Pattern Blood Pressure 129/88 H Blood Pressure Mean 102 Pulse Ox 90 83 Oxygen Delivery Method Room Air Room Air Oxygen Flow Rate (L/min) 06/12/23 23:01 06/12/23 23:54 Temperature Temperature Source Pulse Rate Respiratory Rate Respiratory Effort Respiratory Pattern Blood Pressure 129/88 H Blood Pressure Mean Pulse Ox 95 Oxygen Delivery Method Nasal Cannula Oxygen Flow Rate (L/min) 4 Weight Weight: 350 lb 8.56 oz Body Mass Index (BMI) 54.8 Physical Exam Const alert, oriented x3 and no apparent distress General Appearance: cooperative and well developed HEENT normocephalic, head/scalp atraumatic and moist oral mucous membranes Eyes PERRL and EOMs intact bilaterally Neck no lymphadenopathy and supple Lymph Lymphatic: no lymphadenopathy noted Resp Resp Narrative: mildly diminished breath sounds bibasally, no wheezes or crackles. On 3L of oxyg en by nasal canula Cardio regular rate, regular rhythm, S1 normal heart sound, S2 normal heart sound and no murmurs GI normal to inspection, nondistended, normoactive bowel sounds, soft to palpation and non-tender Extremity normal capillary refill, no clubbing, cyanosis or edema and no calf tenderness Extremity Narrative: right TMA amputation General Extremity: no tenderness to palpation of joints or extremities Skin General Skin Exam: no breakdown Neuro CN's II-XII intact bilaterally, no focal motor deficits and no sensory deficits noted Motor Exam: strength 5/5 throughout and general weakness Psych thought process normal and cooperative Appearance: appropriate Results Lab / Micro Data 06/12/23 20:30 06/12/23 20:30 Labs: Laboratory Results - last 24 hr 06/12/23 20:30: WBC 8.0, RBC 4.92, Hgb 12.7, Hct 40.0, MCV 81.3, MCH 25.8 L, MCHC 31.8 L, RDW Std Deviation 41.9, RDW Coeff of Spencer 14.4, Plt Count 150, MPV 11.3, Immature Gran % (Auto) 0.300, Neut % (Auto) 68.5, Lymph % (Auto) 20.3, Elliott % (Auto) 6.0, Eos % (Auto) 3.9, Baso % (Auto) 1.0, Absolute Neuts (auto) 5.5, Absolute Lymphs (auto) 1.61, Nucleated RBC % 0, Differential Comment SCANNED, PT Cancelled, INR Cancelled, APTT Cancelled, Sodium 136, Potassium 4.0, Chloride 103, Carbon Dioxide 27.0, Anion Gap 6, BUN 9, Creatinine 0.75, Estim Creat Clear Calc 140.88, Est GFR (MDRD) Af Amer 105, Est GFR (MDRD) Non-Af 86, BUN/Creatinine Ratio 12.0, Glucose 272 H, Calcium 9.1, Troponin I High Sens 22, B-Natriuretic Peptide 596.3 H 06/12/23 22:05: PT 12.7, INR 1.0, APTT 27.5 Imagaing Radiology Impression Chest CTA 06/12/23 21:05 IMPRESSION: Negative CTA chest examination, without a demonstrated pulmonary embolism or arterial dissection. Cardiomegaly with mild bilateral pleural effusions and early congestive heart failure. Right adrenal adenoma measuring 2.2 cm. No further follow-up imaging recommended. Left upper no pole simple cyst measuring 2 cm, with no further follow-up imaging recommended. Electronically Signed: Laura Sam MD at 23:00 EST Reading Location ID and State: [facility] / [place] , Service support , Assessment & Plan Assessment/Plan (1) CHF (congestive heart failure): (2) Acute dyspnea: PLAN: Plan #Acute on chronic exacerbation of combined HF * admit to PCU * BNP elevated at 529. Initial troponin negative * EKG showed no acute ST changes * CT chest showed no PE but showed cardiomegaly with mild bilateral pleural effusions and early congestive heart failure. * start on IV lasix 40mg bid * monitor intake and output * fluid restriction to 1500cc daily * 2D echo from showed EF of 15% with severe segmental systolic dysfunction and stage 3 diastolic dysfunction * cycle troponins * SL nitroglycerin prn * titrate oxytgen to maintain sats >90% * breathing treatment with bronchodilators * #Hypoxia due to acute on chronic combined heart failure * as above * * #History of CAD * likely an ischemic cardiomyopathy due to echo findings as above * on aspirin and carvedilol as well as plavix and high intensity statin * #Hypertension; on carvedilol and spironolactone. Not on SELENE-I/ARB; unclear why. #Hyperlipidemia: on statin #GERD: on PPI #Anxiety and depression: on lexapro #Type 2 diabetes mellitus * poorly controlled * last A1C in 04/2023 was 11. * on lantus 25 units bid * ISS. Accuchecks ACHS\ * DVT prophylaxis: lovenox Code status: full code * Patient counseled extensively about different types of CODE STATUS including full code, DNR CCA and DNR CCA. Patient elects to be full code. * Total [id number] time 16 minutes. Total time spent on evaluation and management of patient, reviewing chart and specialist notes, discussing plan with patient, discussion with nursing and ancillary staff as well as documentation: 76 mins Charges/Coding Visit Charges Inpatient E&M: 68513 Init Hosp L3 Procedures Hospitalists Procedures: 15030 Advncd Care Plan 30 Min
[2023-06-13 01:36] VITALS: BP 131/92; PULSE 98; RESP 15; O2SAT 95
[2023-06-13 03:00] VITALS: BMI 27.4
[2023-06-13] MEDS: oxyCODONE 5 MG Tablet PO (03:42)
[2023-06-13] MEDS: Ondansetron 4 MG/2 ML Vial IV ×4 (03:42→23:52)
[2023-06-13] MEDS: 0.9% Saline Lock 10 ML Syringe IV ×7 (03:43→23:52)
[2023-06-13] MEDS: Gabapentin 300 MG Capsule PO ×3 (05:51→22:09)
[2023-06-13 06:08] LABS: Absolute Lymphocyte Count 0.97 X10^3/uL (0.83-4.51); Absolute Neutrophil Count 6.8 X10^3/uL (2.0-7.7); Basophil# 0.07 X10^3/uL; Basophil% 0.8 % (0-1); Eosinophil# 0.27 X10^3/uL; Eosinophils% 3.2 % (0-5); Hematocrit 38.5 % (37-47); Hemoglobin 12.2 g/dL (12.0-15.0); Lymphocyte # 0.97 X10^3/ul (0.83-4.51); Lymphocyte % 11.4 % (19-41); Mean Corp Hgb Conc 31.7 g/dL (32-36); Mean Corpuscular Hgb 25.8 pg (27.0-32.0); Mean Corpuscular Volume 81.4 fL (81-99); Mean Platelet Vol. 9.8 fl (6.2-12.0); Monocyte# 0.42 X10^3/uL; Monocyte% 4.9 % (0-10); NRBC Flagged by Analyzer 0 % (0-5); Neutrophil # 6.76 X10^3/uL (2.7-7.7); Neutrophil % 79.1 % (47-70); Platelet Count 170 K/mm3 (150-450); RBC Distribution Width CV 14.3 % (11.6-14.6); RBC Distribution Width SD 42.3 fl (35.1-43.9); Red Blood Count 4.73 M/mm3 (4.2-5.4); White Blood Count 8.5 K/mm3 (4.4-11.0)
[2023-06-13] MEDS: Morphine 2 MG/ML Syringe 1 MG IV ×3 (06:08→22:23)
[2023-06-13 06:27] LABS: Troponin-I HS 23 pg/mL (3.0-54.0)
[2023-06-13 06:28] LABS: Anion Gap 7 (5-15); BUN 8 mg/dL (7-18); BUN/Creat Ratio 11.7 RATIO (10-20); Calcium,Total 8.4 mg/dL (8.5-10.1); Chloride 101 mmol/L (98-107); Creatinine, Serum 0.68 mg/dL (0.55-1.02); EST Glomerular Filtration Rate 97 mL/min (>60); Est Glom Filt Rate - Afr Amer 117 mL/min (>60); Glucose 276 mg/dL (74-106); Potassium 3.8 mmol/L (3.5-5.1); Sodium Level 137 mmol/L (136-145)
[2023-06-13 08:00] VITALS: BP 124/77; PULSE 96; RESP 16; TEMP 36.6; O2SAT 97
[2023-06-13 08:11] LABS: Troponin-I HS 17 pg/mL (3.0-54.0)
[2023-06-13 08:16] LABS: Bedside Glucose 300 mg/dL (74-106)
[2023-06-13] MEDS: Spironolactone 25 MG Tablet PO (09:00)
[2023-06-13] MEDS: Carvedilol 12.5 MG Tablet PO ×2 (09:00→18:51)
[2023-06-13] MEDS: Calcium Carbonate 500 MG Tablet PO (09:00)
[2023-06-13] MEDS: Aspirin 81 MG TAB.CHEW PO (09:00)
[2023-06-13] MEDS: Clopidogrel Bisulfate 75 MG Tablet PO (09:01)
[2023-06-13] MEDS: Furosemide 40 MG/4 ML Vial IV ×2 (09:01→18:51)
[2023-06-13] MEDS: Escitalopram Oxalate 10 MG Tablet PO (09:01)
[2023-06-13] MEDS: Cholecalciferol (VIT D3) 25 MCG TABLET (1,000 UNITS) PO (09:01)
[2023-06-13] MEDS: Pantoprazole Sodium 40 MG Tablet PO (09:01)
[2023-06-13] MEDS: Enoxaparin 40 MG/0.4 ML Syringe SC (09:01)
[2023-06-13] MEDS: SACUBITRIL/VALSARTAN 24/26 MG TABLET 1 EACH PO ×2 (09:01→22:11)
[2023-06-13] MEDS: Empagliflozin 25 MG Tablet PO (09:03)
[2023-06-13] MEDS: Insulin Glargine-YFGN 100 UNIT/ML Pen 25 UNIT SC ×2 (09:03→22:10)
[2023-06-13 11:19] LABS: Troponin-I HS 17 pg/mL (3.0-54.0)
--- NOTE | 2023-06-13 13:12 | PCM.PN.HOSP ---
Objective Data Objective Data Vital Signs: Vital Signs Temp Pulse Resp BP Pulse Ox O2 Del Method O2 Flow Rate 97.8 F 96 16 124/77 H 97 Nasal Cannula 2 06/13/23 08:00 06/13/23 08:00 06/13/23 08:00 06/13/23 08:00 06/13/23 08:00 06/13/23 08:00 06/13/23 08:00 Oxygen Flow Rate (L/min) 2 Oxygen Delivery Method Nasal Cannula Weight: 175 lb 1.6 oz Body Mass Index (BMI) 27.4 Intake & Output: Intake and Output for Last 24 Hours 06/11/23 06/12/23 06/13/23 23:59 23:59 23:59 Intake Total 500 / 500 Output Total 900 / 900 Balance -400 / -400 Lab / Micro Data 06/13/23 05:39 06/13/23 05:39 Labs: Laboratory Results - last 24 hr 06/12/23 20:30: WBC 8.0, RBC 4.92, Hgb 12.7, Hct 40.0, MCV 81.3, MCH 25.8 L, MCHC 31.8 L, RDW Std Deviation 41.9, RDW Coeff of Spencer 14.4, Plt Count 150, MPV 11.3, Immature Gran % (Auto) 0.300, Neut % (Auto) 68.5, Lymph % (Auto) 20.3, [place] % (Auto) 6.0, Eos % (Auto) 3.9, Baso % (Auto) 1.0, Absolute Neuts (auto) 5.5, Absolute Lymphs (auto) 1.61, Nucleated RBC % 0, Differential Comment SCANNED, PT Cancelled, INR Cancelled, APTT Cancelled, Sodium 136, Potassium 4.0, Chloride 103, Carbon Dioxide 27.0, Anion Gap 6, BUN 9, Creatinine 0.75, Estim Creat Clear Calc 140.88, Est GFR (MDRD) Af Amer 105, Est GFR (MDRD) Non-Af 86, BUN/Creatinine Ratio 12.0, Glucose 272 H, Calcium 9.1, Troponin I High Sens 22, B-Natriuretic Peptide 596.3 H 06/12/23 22:05: PT 12.7, INR 1.0, APTT 27.5 06/13/23 05:39: WBC 8.5, RBC 4.73, Hgb 12.2, Hct 38.5, MCV 81.4, MCH 25.8 L, MCHC 31.7 L, RDW Std Deviation 42.3, RDW Coeff of Spencer 14.3, Plt Count 170, MPV 9.8, Immature Gran % (Auto) 0.600, Neut % (Auto) 79.1 H, Lymph % (Auto) 11.4 L, [place] % (Auto) 4.9, Eos % (Auto) 3.2, Baso % (Auto) 0.8, Absolute Neuts (auto) 6.8, Absolute Lymphs (auto) 0.97, Nucleated RBC % 0, Sodium 137, Potassium 3.8, Chloride 101, Carbon Dioxide 29.0, Anion Gap 7, BUN 8, Creatinine 0.68, Estim Creat Clear Calc 106.20, Est GFR (MDRD) Af Amer 117, Est GFR (MDRD) Non-Af 97, BUN/Creatinine Ratio 11.7, Glucose 276 H, Calcium 8.4 L, Troponin I High Sens 23 06/13/23 07:32: Troponin I High Sens 17 06/13/23 07:50: POC Glucose 300 H 06/13/23 10:51: Troponin I High Sens 17 Radiography Diagnostic Testing: Radiology Impression Chest CTA 06/12/23 21:05 IMPRESSION: Negative CTA chest examination, without a demonstrated pulmonary embolism or arterial dissection. Cardiomegaly with mild bilateral pleural effusions and early congestive heart failure. Right adrenal adenoma measuring 2.2 cm. No further follow-up imaging recommended. Left upper no pole simple cyst measuring 2 cm, with no further follow-up imaging recommended. Electronically Signed: Laura Sam MD at 23:00 EST , Physical Exam Narrative Seen and examined. Patient has mild bilateral leg swelling. She Hartness of breath is better. Eating her lunch. Physical exam General: Alert, Oriented x3, Cooperative HEENT: Pale conjunctiva atraumatic, PERRLA, EOMI, Normocephalic Oral: Oral mucosa dry. No Gingival or Mucosal Lesions/ Ulcerations Neck: Supple, No JVD, Negative Carotid Bruits Lungs: Air entry diminished in bilateral lung bases. No crepitation/rhonchi Cardiovascular: Regular rate, Regular Rhythm, Normal S1, Normal S2, no murmur. Decreased pulsation of MINT MACHINE OPERATOR and dorsalis artery left more than right. Abdomen: Bowel Sounds Present, Soft, Non Tender, Non-Distended : No renal angle tenderness. No suprapubic tenderness. Extremities: Bilateral lower leg/ankle edema, Capillary Refill Less than 3 Seconds Skin: Shiny smooth skin with no hair suggestive of cutaneous signs of PAD Musculoskeletal: No Tenderness to Palpation of Joints or Extremities. Left TMA. Right second toe amputation. Neurological: Cranial nerves II-XII grossly intact, DTR 2+/4. No acute focal neurological deficit. Psych/Mental Status: Normal Affect, Appropriate. Assessment & Plan Assessment/Plan (1) CHF (congestive heart failure): (2) Acute dyspnea: PLAN: Plan Patient admitted with shortness of breath and lower extremity swelling that is started suddenly day before admission. She could not catch her breath. Patient is on Lasix at home. Denies fever. #Acute on chronic exacerbation of combined HF: Patient is still in the ER admitted last night for PCU: Complaining of mild chest pain in the middle but no radiation.Serial troponins are negative.BNP elevated at 529. I EKG showed no acute ST changes CT chest showed no PE but showed cardiomegaly with mild bilateral pleural effusions and early congestive heart failure. on IV lasix 40mg bid. Heart failure core measures including intake and output, fluid restriction less than 1500 mL, daily weight monitoring, kidney and electrolytes monitoring. 2D echo from showed EF of 15% with severe segmental systolic dysfunction and stage 3 diastolic dysfunction titrate oxytgen to maintain sats >90% breathing treatment with bronchodilators #Hypoxia due to acute on chronic combined heart failure as above #History of CAD and peripheral arterial disease likely an ischemic cardiomyopathy due to echo findings as above on aspirin and carvedilol as well as plavix and high intensity statin Patient had left TMA and right second toe amputation. Patient also had a stent in right leg probably SFA patient is a current smoker. Continue baby aspirin and Plavix. #Hypertension; on carvedilol and spironolactone. Not on SELENE-I/ARB The patient is started on Entresto 24-26 1 tablet twice daily. #Hyperlipidemia: on statin #GERD: on PPI #Anxiety and depression: on lexapro #Type 2 diabetes mellitus poorly controlled last A1C in 04/2023 was 11. on lantus 25 units bid Continue Accu-Cheks since been on sliding scale insulin.Glucose is 300. DVT prophylaxis: lovenox Code status: full code Patient counseled extensively about different types of CODE STATUS including full code, DNR CCA and DNR CCA. Patient elects to be full code. Clinical Impression(s) from Imaging Studies Chest CTA 06/12/23 21:05 IMPRESSION: Negative CTA chest examination, without a demonstrated pulmonary embolism or arterial dissection. Cardiomegaly with mild bilateral pleural effusions and early congestive heart failure. Right adrenal adenoma measuring 2.2 cm. No further follow-up imaging recommended. Left upper no pole simple cyst measuring 2 cm, with no further follow-up imaging recommended. Laboratory Results 06/12/23 20:30: WBC 8.0, RBC 4.92, Hgb 12.7, Hct 40.0, MCV 81.3, MCH 25.8 L, MCHC 31.8 L, RDW Std Deviation 41.9, RDW Coeff of Spencer 14.4, Plt Count 150, MPV 11.3, Immature Gran % (Auto) 0.300, Neut % (Auto) 68.5, Lymph % (Auto) 20.3, [place] % (Auto) 6.0, Eos % (Auto) 3.9, Baso % (Auto) 1.0, Absolute Neuts (auto) 5.5, Absolute Lymphs (auto) 1.61, Nucleated RBC % 0, Differential Comment SCANNED, PT Cancelled, INR Cancelled, APTT Cancelled, Sodium 136, Potassium 4.0, Chloride 103, Carbon Dioxide 27.0, Anion Gap 6, BUN 9, Creatinine 0.75, Estim Creat Clear Calc 140.88, Est GFR (MDRD) Af Amer 105, Est GFR (MDRD) Non-Af 86, BUN/Creatinine Ratio 12.0, Glucose 272 H, Calcium 9.1, Troponin I High Sens 22, B-Natriuretic Peptide 596.3 H 06/12/23 22:05: PT 12.7, INR 1.0, APTT 27.5 06/13/23 05:39: WBC 8.5, RBC 4.73, Hgb 12.2, Hct 38.5, MCV 81.4, MCH 25.8 L, MCHC 31.7 L, RDW Std Deviation 42.3, RDW Coeff of Spencer 14.3, Plt Count 170, MPV 9.8, Immature Gran % (Auto) 0.600, Neut % (Auto) 79.1 H, Lymph % (Auto) 11.4 L, [place] % (Auto) 4.9, Eos % (Auto) 3.2, Baso % (Auto) 0.8, Absolute Neuts (auto) 6.8, Absolute Lymphs (auto) 0.97, Nucleated RBC % 0, Sodium 137, Potassium 3.8, Chloride 101, Carbon Dioxide 29.0, Anion Gap 7, BUN 8, Creatinine 0.68, Estim Creat Clear Calc 106.20, Est GFR (MDRD) Af Amer 117, Est GFR (MDRD) Non-Af 97, BUN/Creatinine Ratio 11.7, Glucose 276 H, Calcium 8.4 L, Troponin I High Sens 23 06/13/23 07:32: Troponin I High Sens 17 06/13/23 07:50: POC Glucose 300 H 06/13/23 10:51: Troponin I High Sens 17 Charges/Coding Visit Charges Inpatient E&M: 21720 Subs Hosp L2
[2023-06-13 14:00] VITALS: BP 121/80; PULSE 78; RESP 18; TEMP 36.7; O2SAT 95
--- NOTE | 2023-06-13 15:20 | CASEMGMT ---
CHAYITO BARKLEY Face to Face with patient for initial transition planning/care coordination assessment. CHAYITO BARKLEY introduced self and role at [facility]. Patient lying in bed, alert and oriented. Patient willing to participate in assessment and is able to answer all questions appropriately. Care providers, pharmacy, and demographics verified. Patient wishes to discharge home, denies need for home health at this time. Patient states she has no further needs or concerns at this time. CM to follow for discharge planning needs that may arise. 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 Patient states she is independent and able to ambulate the stairs slowly at home. Transportation: mother DME/HHC: Patient has raised toilet, cane, walker, glucometer and insulin with supplies. Patient has had [facility]HC in the past. No previous SNF. CHAYITO BARKLEY discussed patient link program with patient and she is interested. Patient Link referral made. Disposition Plan: Patient to discharge home with patient link, family support, and follow-up plans in place. Paula HAWKINS, RN, CM
[2023-06-13 18:44] VITALS: BP 131/93; PULSE 86; RESP 16; TEMP 36.7; O2SAT 98
[2023-06-13] MEDS: Insulin Lispro 100 UNIT/ML INSULN.PEN 10 UNIT SC (18:56)
--- NOTE | 2023-06-13 20:00 | NURSING ---
Starting emergency charting
[2023-06-13 22:01] VITALS: BP 104/71; PULSE 78; RESP 18; TEMP 36.6; O2SAT 100
[2023-06-13] MEDS: Atorvastatin Calcium 80 MG Tablet PO (22:09)
[2023-06-13 22:56] LABS: Bedside Glucose 209 mg/dL (74-106)
[2023-06-14 04:19] VITALS: BP 108/80; PULSE 73; RESP 16; TEMP 36.6; O2SAT 97
[2023-06-14] MEDS: Morphine 2 MG/ML Syringe 1 MG IV ×3 (04:30→22:36)
[2023-06-14] MEDS: 0.9% Saline Lock 10 ML Syringe IV ×3 (04:30→16:10)
[2023-06-14] MEDS: Ondansetron 4 MG/2 ML Vial IV ×2 (05:02→22:36)
[2023-06-14] MEDS: Gabapentin 300 MG Capsule PO ×3 (05:02→22:33)
[2023-06-14 08:17] VITALS: BP 95/66; PULSE 71; RESP 16; TEMP 36.5; O2SAT 96
[2023-06-14] MEDS: Aspirin 81 MG TAB.CHEW PO (08:29)
[2023-06-14] MEDS: Calcium Carbonate 500 MG Tablet PO (08:29)
[2023-06-14] MEDS: Insulin Lispro 100 UNIT/ML INSULN.PEN 10 UNIT SC ×2 (08:30→12:17)
[2023-06-14 08:55] LABS: Bedside Glucose 166 mg/dL (74-106)
[2023-06-14 08:56] LABS: Absolute Lymphocyte Count 1.41 X10^3/uL (0.83-4.51); Absolute Neutrophil Count 7.2 X10^3/uL (2.0-7.7); Basophil# 0.08 X10^3/uL; Basophil% 0.8 % (0-1); Eosinophil# 0.22 X10^3/uL; Eosinophils% 2.3 % (0-5); Hemoglobin 13.5 g/dL (12.0-15.0); Lymphocyte # 1.41 X10^3/ul (0.83-4.51); Lymphocyte % 14.9 % (19-41); Mean Corp Hgb Conc 31.4 g/dL (32-36); Mean Corpuscular Hgb 25.8 pg (27.0-32.0); Mean Corpuscular Volume 82.1 fL (81-99); Mean Platelet Vol. 10.3 fl (6.2-12.0); Monocyte# 0.52 X10^3/uL; Monocyte% 5.5 % (0-10); NRBC Flagged by Analyzer 0 % (0-5); Neutrophil # 7.17 X10^3/uL (2.7-7.7); Neutrophil % 76.1 % (47-70); Platelet Count 208 K/mm3 (150-450); RBC Distribution Width CV 14.2 % (11.6-14.6); RBC Distribution Width SD 41.9 fl (35.1-43.9); Red Blood Count 5.24 M/mm3 (4.2-5.4); White Blood Count 9.4 K/mm3 (4.4-11.0)
[2023-06-14 09:37] LABS: Anion Gap 8 (5-15); BUN 13 mg/dL (7-18); BUN/Creat Ratio 16.2 RATIO (10-20); Calcium,Total 9.3 mg/dL (8.5-10.1); Chloride 101 mmol/L (98-107); EST Glomerular Filtration Rate 80 mL/min (>60); Est Glom Filt Rate - Afr Amer 97 mL/min (>60); Estimated Creatinine Clearance 90.27 ml/min; Glucose 163 mg/dL (74-106); Potassium 3.4 mmol/L (3.5-5.1); Sodium Level 137 mmol/L (136-145)
[2023-06-14 10:42] VITALS: BP 103/74; PULSE 76
[2023-06-14] MEDS: SACUBITRIL/VALSARTAN 24/26 MG TABLET 1 EACH PO ×2 (10:49→22:35)
[2023-06-14] MEDS: Spironolactone 25 MG Tablet PO (10:49)
[2023-06-14] MEDS: Insulin Glargine-YFGN 100 UNIT/ML Pen 25 UNIT SC ×2 (10:49→22:35)
[2023-06-14] MEDS: Escitalopram Oxalate 10 MG Tablet PO (10:50)
[2023-06-14] MEDS: Empagliflozin 25 MG Tablet PO (10:50)
[2023-06-14] MEDS: Clopidogrel Bisulfate 75 MG Tablet PO (10:51)
[2023-06-14] MEDS: Enoxaparin 40 MG/0.4 ML Syringe SC (10:51)
[2023-06-14] MEDS: Cholecalciferol (VIT D3) 25 MCG TABLET (1,000 UNITS) PO (10:51)
[2023-06-14] MEDS: Pantoprazole Sodium 40 MG Tablet PO (10:51)
[2023-06-14 11:17] LABS: Bedside Glucose 165 mg/dL (74-106)
[2023-06-14] MEDS: oxyCODONE 5 MG Tablet PO (12:24)
[2023-06-14 12:38] LABS: Bedside Glucose 148 mg/dL (74-106)
[2023-06-14 15:10] VITALS: BP 94/61; PULSE 72; RESP 16; TEMP 36.8; O2SAT 99
--- NOTE | 2023-06-14 15:38 | PN.HOSP_ITS ---
Reason for Visit Reason for Visit: Diagnoses Heart failure, unspecified (06/13/23) Dyspnea, unspecified (06/13/23) Objective Data Objective Data Vital Signs: Vital Signs Temp Pulse Resp BP Pulse Ox O2 Del Method O2 Flow Rate 98.3 F 72 16 94/61 99 Room Air 2 06/14/23 15:10 06/14/23 15:10 06/14/23 15:10 06/14/23 15:10 06/14/23 15:10 06/14/23 15:10 06/13/23 10:00 Oxygen Flow Rate (L/min) 2 Oxygen Delivery Method Room Air Weight: 175 lb 1.599 oz Body Mass Index (BMI) 27.4 Intake & Output: Intake and Output for Last 24 Hours 06/12/23 06/13/23 06/14/23 23:59 23:59 23:59 Intake Total 1300 / 1300 762 / 762 Output Total 900 / 900 Balance 400 / 400 762 / 762 Lab / Micro Data 06/14/23 08:22 06/14/23 08:22 Labs: Laboratory Results - last 24 hr 06/13/23 22:07: POC Glucose 209 H 06/14/23 08:22: WBC 9.4, RBC 5.24, Hgb 13.5, Hct 43.0, MCV 82.1, MCH 25.8 L, MCHC 31.4 L, RDW Std Deviation 41.9, RDW Coeff of [place] 14.2, Plt Count 208, MPV 10.3, Immature Gran % (Auto) 0.400, Neut % (Auto) 76.1 H, Lymph % (Auto) 14.9 L, [place] % (Auto) 5.5, Eos % (Auto) 2.3, Baso % (Auto) 0.8, Absolute Neuts (auto) 7.2, Absolute Lymphs (auto) 1.41, Nucleated RBC % 0, Sodium 137, Potassium 3.4 L , Chloride 101, Carbon Dioxide 28.0, Anion Gap 8, BUN 13, Creatinine 0.80, Estim Creat Clear Calc 90.27, Est GFR (MDRD) Af Amer 97, Est GFR (MDRD) Non-Af 80, BUN/Creatinine Ratio 16.2, Glucose 163 H, Calcium 9.3 06/14/23 08:25: POC Glucose 166 H 06/14/23 10:46: POC Glucose 165 H 06/14/23 12:15: POC Glucose 148 H Physical Exam Narrative Seen and examined. Patient has improvement of bilateral leg swelling. She was having nausea and vomiting yesterday in the ER and then started having diarrhea 3 times liquid bowel movement mainly watery. She also feels cramps in the abdomen. Nonspecific cramps all over diffuse with no particular area of initiation. Physical exam General: Alert, Oriented x3, Cooperative. Patient looks dehydrated. HEENT: Pale conjunctiva atraumatic, PERRLA, EOMI, Normocephalic Oral: Oral mucosa dry. No Gingival or Mucosal Lesions/ Ulcerations Neck: Supple, No JVD, Negative Carotid Bruits Lungs: Air entry diminished in bilateral lung bases. No crepitation/rhonchi Cardiovascular: Regular rate, Regular Rhythm, Normal S1, Normal S2, no murmur. Decreased pulsation of ROUGE [employer]IFTER and dorsalis artery left more than right. Abdomen: Bowel Sounds Present, Soft, Non Tender, Non-Distended : No renal angle tenderness. No suprapubic tenderness. Extremities: Bilateral lower leg/ankle edema improving. Capillary Refill Less than 3 Seconds Skin: Shiny smooth skin with no hair suggestive of cutaneous signs of PAD Musculoskeletal: No Tenderness to Palpation of Joints or Extremities. Left TMA. Right second toe amputation. Neurological: Cranial nerves II-XII grossly intact, DTR 2+/4. No acute focal neurological deficit. Psych/Mental Status: Normal Affect, Appropriate. Assessment & Plan Assessment/Plan (1) CHF (congestive heart failure): (2) Acute dyspnea: PLAN: Plan Patient admitted with shortness of breath and lower extremity swelling that is started suddenly day before admission. She could not catch her breath. Patient is on Lasix at home. Denies fever. #Acute on chronic exacerbation of combined HF: Patient is still in the ER admitted last night for PCU: Complaining of mild chest pain in the middle but no radiation.Serial troponins are negative.BNP elevated at 529. I * EKG showed no acute ST changes * CT chest showed no PE but showed cardiomegaly with mild bilateral pleural effusions and early congestive heart failure. * on IV lasix 40mg bid. Heart failure core measures including intake and output, fluid restriction less than 1500 mL, daily weight monitoring, kidney and electrolytes monitoring. * 2D echo from showed EF of 15% with severe segmental systolic dysfunction and stage 3 diastolic dysfunction * titrate oxytgen to maintain sats >90% * breathing treatment with bronchodilators 06/14: Blood pressure 94/61 heart rate 72. Lasix is hold. Patient also having diarrhea.. BP systolic low 100 since last night. I will start on Ringer lactate 2 L at about 75 mill per hour as patient is very dehydrated. Acute gastroenteritis for last 2 days: Yesterday she had nausea vomiting today diarrhea. Mild abdominal cramps.Stool sample ordered. No exam finding mild nonspecific tenderness otherwise benign. #Hypoxia due to acute on chronic combined heart failure 06/14: Hypoxia has resolved. #History of CAD and peripheral arterial disease * likely an ischemic cardiomyopathy due to echo findings as above * on aspirin and carvedilol as well as plavix and high intensity statin * Patient had left TMA and right second toe amputation. Patient also had a stent in right leg probably SFA patient is a current smoker. Continue baby aspirin and Plavix. #Hypertension; on carvedilol and spironolactone. Not on SELENE-I/ARB The patient is started on Entresto 24-26 1 tablet twice daily. #Hyperlipidemia: on statin #GERD: on PPI #Anxiety and depression: on lexapro #Type 2 diabetes mellitus * poorly controlled * last A1C in 04/2023 was 11. * on lantus 25 units bid * Continue Accu-Cheks since been on sliding scale insulin.Glucose is 300. * DVT prophylaxis: lovenox Code status: full code * Patient counseled extensively about different types of CODE STATUS including full code, DNR CCA and DNR CCA. Patient elects to be full code. Clinical Impression(s) from Imaging Studies Chest CTA 06/12/23 21:05 IMPRESSION: Negative CTA chest examination, without a demonstrated pulmonary embolism or arterial dissection. Cardiomegaly with mild bilateral pleural effusions and early congestive heart failure. Right adrenal adenoma measuring 2.2 cm. No further follow-up imaging recommended. Left upper no pole simple cyst measuring 2 cm, with no further follow-up imaging recommended. Laboratory Results 06/12/23 20:30: WBC 8.0, RBC 4.92, Hgb 12.7, Hct 40.0, MCV 81.3, MCH 25.8 L, MCHC 31.8 L, RDW Std Deviation 41.9, RDW Coeff of [place] 14.4, Plt Count 150, MPV 11.3, Immature Gran % (Auto) 0.300, Neut % (Auto) 68.5, Lymph % (Auto) 20.3, [place] % (Auto) 6.0, Eos % (Auto) 3.9, Baso % (Auto) 1.0, Absolute Neuts (auto) 5.5, Absolute Lymphs (auto) 1.61, Nucleated RBC % 0, Differential Comment SCANNED, PT Cancelled, INR Cancelled, APTT Cancelled, Sodium 136, Potassium 4.0, Chloride 103, Carbon Dioxide 27.0, Anion Gap 6, BUN 9, Creatinine 0.75, Estim Creat Clear Calc 140.88, Est GFR (MDRD) Af Amer 105, Est GFR (MDRD) Non-Af 86, BUN/Creatinine Ratio 12.0, Glucose 272 H, Calcium 9.1, Troponin I High Sens 22, B-Natriuretic Peptide 596.3 H 06/12/23 22:05: PT 12.7, INR 1.0, APTT 27.5 06/13/23 05:39: WBC 8.5, RBC 4.73, Hgb 12.2, Hct 38.5, MCV 81.4, MCH 25.8 L, MCHC 31.7 L, RDW Std Deviation 42.3, RDW Coeff of [place] 14.3, Plt Count 170, MPV 9.8, Immature Gran % (Auto) 0.600, Neut % (Auto) 79.1 H, Lymph % (Auto) 11.4 L, [place] % (Auto) 4.9, Eos % (Auto) 3.2, Baso % (Auto) 0.8, Absolute Neuts (auto) 6.8, Absolute Lymphs (auto) 0.97, Nucleated RBC % 0, Sodium 137, Potassium 3.8, Chloride 101, Carbon Dioxide 29.0, Anion Gap 7, BUN 8, Creatinine 0.68, Estim Creat Clear Calc 106.20, Est GFR (MDRD) Af Amer 117, Est GFR (MDRD) Non-Af 97, BUN/Creatinine Ratio 11.7, Glucose 276 H, Calcium 8.4 L, Troponin I High Sens 23 06/13/23 07:32: Troponin I High Sens 17 06/13/23 07:50: POC Glucose 300 H 06/13/23 10:51: Troponin I High Sens 17 Charges/Coding Visit Charges Inpatient E&M: 11479 Subs Hosp L2
[2023-06-14] MEDS: Lactated Ringers 1,000 ML 75 ML IV (16:10)
[2023-06-14] MEDS: Influenza Virus Vac Quad 23-24 60 MCG/0.5 ML SYRINGE IM (16:11)
[2023-06-14 17:19] VITALS: BP 110/77; PULSE 82
[2023-06-14] MEDS: Carvedilol 6.25 MG Tablet PO (17:22)
[2023-06-14 17:41] LABS: Bedside Glucose 96 mg/dL (74-106)
--- NOTE | 2023-06-14 21:00 | NURSING ---
Starting emergency charting
[2023-06-14] MEDS: Atorvastatin Calcium 80 MG Tablet PO (22:35)
[2023-06-14 22:38] LABS: Bedside Glucose 193 mg/dL (74-106)
[2023-06-14 23:30] VITALS: BP 116/73; PULSE 77; RESP 16; TEMP 36.8; O2SAT 98
[2023-06-15] VITALS (7 sets, daily range): BP systolic 107–128; BP diastolic 66–83; PULSE 72–83; RESP 16–18; TEMP 35.7–36.8; O2SAT 95–99
[2023-06-15] MEDS: Lactated Ringers 1,000 ML 75 ML IV (05:47)
[2023-06-15] MEDS: Gabapentin 300 MG Capsule PO ×3 (05:48→22:42)
[2023-06-15 06:37] LABS: Absolute Lymphocyte Count 1.49 X10^3/uL (0.83-4.51); Basophil# 0.05 X10^3/uL; Basophil% 0.8 % (0-1); Eosinophil# 0.37 X10^3/uL; Eosinophils% 5.7 % (0-5); Hematocrit 38.5 % (37-47); Lymphocyte # 1.49 X10^3/ul (0.83-4.51); Lymphocyte % 22.9 % (19-41); Mean Corp Hgb Conc 31.2 g/dL (32-36); Mean Corpuscular Hgb 25.5 pg (27.0-32.0); Mean Corpuscular Volume 81.9 fL (81-99); Mean Platelet Vol. 10.2 fl (6.2-12.0); Monocyte# 0.58 X10^3/uL; Monocyte% 8.9 % (0-10); NRBC Flagged by Analyzer 0 % (0-5); Neutrophil % 61.2 % (47-70); Platelet Count 201 K/mm3 (150-450); RBC Distribution Width CV 14.1 % (11.6-14.6); RBC Distribution Width SD 41.6 fl (35.1-43.9); White Blood Count 6.5 K/mm3 (4.4-11.0)
[2023-06-15 07:21] LABS: Anion Gap 7 (5-15); BUN 15 mg/dL (7-18); BUN/Creat Ratio 20.9 RATIO (10-20); Calcium,Total 8.8 mg/dL (8.5-10.1); Chloride 101 mmol/L (98-107); Creatinine, Serum 0.72 mg/dL (0.55-1.02); EST Glomerular Filtration Rate 91 mL/min (>60); Est Glom Filt Rate - Afr Amer 110 mL/min (>60); Glucose 100 mg/dL (74-106); Potassium 3.1 mmol/L (3.5-5.1); Sodium Level 140 mmol/L (136-145)
[2023-06-15] MEDS: oxyCODONE 5 MG Tablet PO ×2 (07:52→12:12)
[2023-06-15] MEDS: Ondansetron 4 MG/2 ML Vial IV (07:52)
--- NOTE | 2023-06-15 08:20 | DCINST_ITS ---
Discharge Instructions Follow Up Care Test Results: Test results from this visit will be discussed in further detail at your follow- up appointment, if applicable. Discharge Plan Admission Admit Date/Time: 06/13/23 01:12 Attending Provider: Jeremy Alexander [facility] Providers: Talisha Boykin Discharge Orders/Prescriptions Prescriptions: No Action calcium carbonate 500 mg calcium (1,250 mg) tablet 1 tablet PO DAILY insulin glargine [Lantus U-100 Insulin] 100 unit/mL solution 25 unit subcut BID pantoprazole 40 mg tablet,delayed release (DR/EC) 40 mg PO DAILY simethicone 125 mg capsule 125 mg PO TID-QID PRN (Reason: abdominal distention) cholecalciferol (vitamin D3) 25 mcg (1,000 unit) tablet 1,000 unit PO DAILY Patient Comments: TAKE 1 TABLET DAILY aspirin 81 mg Capsule 81 mg PO DAILY nicotine 21 mg/24 hr Patch 24 Hour 21 mg transdermal DAILY Qty: 30 0RF clopidogrel 75 mg Tablet 75 mg PO DAILY Qty: 30 0RF Patient Comments: patient stated pretty sure I still take that atorvastatin 80 mg tablet 80 mg PO DAILY Qty: 30 0RF escitalopram oxalate [Lexapro] 10 mg tablet 10 mg PO DAILY Qty: 30 0RF carvedilol 12.5 mg Tablet 12.5 mg PO BIDCM Qty: 60 0RF Entresto 24-26 mg Tablet 1 tab PO BID 30 Days Qty: 60 0RF furosemide 40 mg Tablet 40 mg PO BIDLX Qty: 60 0RF spironolactone 25 mg Tablet 25 mg PO DAILY Qty: 30 0RF gabapentin 300 mg capsule 300 mg PO TID Qty: 90 0RF Rx Instructions: Take 300 mg tablet only twice a day for the first 3 days then you may continue through 100 mg 3 times a day for the remainder of the prescription dapagliflozin propanediol [Farxiga] 10 mg tablet 10 mg PO DAILY Qty: 90 3RF Patient Comments: patient stated I know I am supposed to be taking this one but I never got a notification from the pharmacy to come pick it up Referrals [facility] [Primary Care Provider] -
--- NOTE | 2023-06-15 08:21 | RAD_ITS ---
STUDY: X-RAY - LEFT ANKLE REASON FOR EXAM: Female, 52 years old. Left ankle pain TECHNIQUE: 3 view(s) of the ankle. COMPARISON: Comparison is made with prior examination dated August 04, 2021. FINDINGS: Demineralization of the visualized tibia and fibula. Old avulsion fracture of the lateral malleolus. Normal tibiotalar articulation and ankle mortise. Calcaneal spurs. Degenerative changes of the subtalar joint. Prior midfoot amputation. There are atherosclerotic calcifications. RAD/Ankle min 3 Views IMPRESSION: Old avulsion fracture of the lateral malleolus. Electronically Signed: Ryan Tejeda MD at 12:33 EST ,
[2023-06-15] MEDS: Carvedilol 6.25 MG Tablet PO ×2 (08:22→17:10)
[2023-06-15] MEDS: Aspirin 81 MG TAB.CHEW PO (08:22)
[2023-06-15] MEDS: Calcium Carbonate 500 MG Tablet PO (08:22)
[2023-06-15 08:37] LABS: Bedside Glucose 107 mg/dL (74-106)
[2023-06-15 08:42] LABS: Magnesium 2.1 mg/dL (1.6-2.6); Phosphorus 4.9 mg/dL (2.5-4.9)
[2023-06-15 09:43] LABS: Troponin-I HS 17 pg/mL (3.0-54.0)
[2023-06-15] MEDS: Potassium Chloride Oral Tablet 20 MEQ 40 MEQ PO (10:59)
[2023-06-15] MEDS: Spironolactone 50 MG Tablet PO (10:59)
[2023-06-15] MEDS: Escitalopram Oxalate 10 MG Tablet PO (11:00)
[2023-06-15] MEDS: SACUBITRIL/VALSARTAN 24/26 MG TABLET 1 EACH PO ×2 (11:00→22:28)
[2023-06-15] MEDS: Insulin Glargine-YFGN 100 UNIT/ML Pen 25 UNIT SC ×2 (11:00→22:31)
[2023-06-15] MEDS: Empagliflozin 25 MG Tablet PO (11:00)
[2023-06-15] MEDS: Pantoprazole Sodium 40 MG Tablet PO (11:01)
[2023-06-15] MEDS: Cholecalciferol (VIT D3) 25 MCG TABLET (1,000 UNITS) PO (11:01)
[2023-06-15] MEDS: Clopidogrel Bisulfate 75 MG Tablet PO (11:01)
[2023-06-15] MEDS: Enoxaparin 40 MG/0.4 ML Syringe SC (11:01)
[2023-06-15 11:31] LABS: Bedside Glucose 189 mg/dL (74-106)
[2023-06-15] MEDS: Insulin Lispro 100 UNIT/ML INSULN.PEN 10 UNIT SC (12:13)
[2023-06-15 12:39] LABS: Bedside Glucose 219 mg/dL (74-106)
--- NOTE | 2023-06-15 15:32 | PN.HOSP_ITS ---
Reason for Visit Reason for Visit: Diagnoses Heart failure, unspecified (06/13/23) Dyspnea, unspecified (06/13/23) Objective Data Objective Data Vital Signs: Vital Signs Temp Pulse Resp BP Pulse Ox O2 Del Method O2 Flow Rate 96.5 F L 76 16 110/75 99 Room Air 2 06/15/23 15:06 06/15/23 15:06 06/15/23 15:06 06/15/23 15:06 06/15/23 15:06 06/15/23 15:06 06/13/23 10:00 Oxygen Flow Rate (L/min) 2 Oxygen Delivery Method Room Air Weight: 175 lb 1.599 oz Body Mass Index (BMI) 27.4 Intake & Output: Intake and Output for Last 24 Hours 06/13/23 06/14/23 06/15/23 23:59 23:59 23:59 Intake Total 1300 / 1300 1428 / 1428 1913.25 / 1913.25 Output Total 900 / 900 780 / 780 Balance 400 / 400 1428 / 1428 1133.25 / 1133.25 Lab / Micro Data 06/15/23 05:49 06/15/23 05:49 Labs: Laboratory Results - last 24 hr 06/14/23 17:18: POC Glucose 96 06/14/23 22:18: POC Glucose 193 H 06/15/23 05:49: WBC 6.5, RBC 4.70, Hgb 12.0, Hct 38.5, MCV 81.9, MCH 25.5 L, MCHC 31.2 L, RDW Std Deviation 41.6, RDW Coeff of [place] 14.1, Plt Count 201, MPV 10.2, Immature Gran % (Auto) 0.500, Neut % (Auto) 61.2, Lymph % (Auto) 22.9, [place] % (Auto) 8.9, Eos % (Auto) 5.7 H, Baso % (Auto) 0.8, Absolute Neuts (auto) 4.0, Absolute Lymphs (auto) 1.49, Nucleated RBC % 0, Sodium 140, Potassium 3.1 L , Chloride 101, Carbon Dioxide 32.0, Anion Gap 7, BUN 15, Creatinine 0.72, Estim Creat Clear Calc 100.30, Est GFR (MDRD) Af Amer 110, Est GFR (MDRD) Non-Af 91, BUN/Creatinine Ratio 20.9 H, Glucose 100, Calcium 8.8, Phosphorus 4.9, Magnesium 2.1 06/15/23 08:12: POC Glucose 107 H 06/15/23 09:01: Troponin I High Sens 17 06/15/23 10:55: POC Glucose 189 H 06/15/23 12:11: POC Glucose 219 H Radiography Diagnostic Testing: Radiology Impression Ankle X-Ray 06/15/23 08:21 IMPRESSION: Old avulsion fracture of the lateral malleolus. Electronically Signed: Ryan Tejeda MD at 12:33 EST , Physical Exam Narrative Seen and examined. Patient is dehydrated yesterday and therefore on IV fluid. Mild leg swelling. Patient complained of left heel pain. She has left TMA. X-ray of ankle ordered. Her diarrhea and abdominal cramps have resolved. Physical exam General: Alert, Oriented x3, Cooperative. Well-hydrated. HEENT: Pale conjunctiva atraumatic, PERRLA, EOMI, Normocephalic Oral: Oral mucosa moist. No Gingival or Mucosal Lesions/ Ulcerations Neck: Supple, No JVD, Negative Carotid Bruits Lungs: Air entry diminished in bilateral lung bases. No crepitation/rhonchi Cardiovascular: Regular rate, Regular Rhythm, Normal S1, Normal S2, no murmur. Decreased pulsation of [employer] and dorsalis artery left more than right. Abdomen: Bowel Sounds Present, Soft, Non Tender, Non-Distended : No renal angle tenderness. No suprapubic tenderness. Extremities: Bilateral lower leg/ankle edema improving. Capillary Refill Less than 3 Seconds Skin: Shiny smooth skin with no hair suggestive of cutaneous signs of PAD Musculoskeletal: Mild tenderness over left heel. Left TMA. Right second toe amputation. Neurological: Cranial nerves II-XII grossly intact, DTR 2+/4. No acute focal neurological deficit. Psych/Mental Status: Flat affect. Assessment & Plan Assessment/Plan (1) CHF (congestive heart failure): (2) Acute dyspnea: PLAN: Plan Patient admitted with shortness of breath and lower extremity swelling that is started suddenly day before admission. She could not catch her breath. Patient is on Lasix at home. Denies fever. #Acute on chronic exacerbation of combined HF: Patient is still in the ER admitted last night for PCU: Complaining of mild chest pain in the middle but no radiation.Serial troponins are negative.BNP elevated at 529. I * EKG showed no acute ST changes * CT chest showed no PE but showed cardiomegaly with mild bilateral pleural effusions and early congestive heart failure. * on IV lasix 40mg bid. Heart failure core measures including intake and output, fluid restriction less than 1500 mL, daily weight monitoring, kidney and electrolytes monitoring. * 2D echo from showed EF of 15% with severe segmental systolic dysfunction and stage 3 diastolic dysfunction * titrate oxytgen to maintain sats >90% * breathing treatment with bronchodilators 06/14: Blood pressure 94/61 heart rate 72. Lasix is hold. Patient also having diarrhea.. BP systolic low 100 since last night. I will start on Ringer lactate 2 L at about 75 mill per hour as patient is very dehydrated. 06/15: Blood pressure is improved 116/83. Lasix from tomorrow AM. Mild hypokalemia potassium replaced. Acute gastroenteritis for last 2 days: Yesterday she had nausea vomiting today diarrhea. Mild abdominal cramps.Stool sample ordered. No exam finding mild nonspecific tenderness otherwise benign. 06/15: Acute gastroenteritis has resolved. Dehydration resolved. Left transmetatarsal amputation with history of diabetic foot in the past: Patient complained of left hip pain. X-ray of left ankle was done which shows old fracture of left malleolus but the fracture was not present in the x-ray of May 2023. Podiatry is consulted for further opinion. Left foot cam boot and conservative management. #Hypoxia due to acute on chronic combined heart failure 06/14: Hypoxia has resolved. #History of CAD and peripheral arterial disease * likely an ischemic cardiomyopathy due to echo findings as above * on aspirin and carvedilol as well as plavix and high intensity statin * Patient had left TMA and right second toe amputation. Patient also had a stent in right leg probably SFA patient is a current smoker. Continue baby aspirin and Plavix. #Hypertension; on carvedilol and spironolactone. Not on SELENE-I/ARB The patient is started on Entresto 24-26 1 tablet twice daily. #Hyperlipidemia: on statin #GERD: on PPI #Anxiety and depression: on lexapro #Type 2 diabetes mellitus * poorly controlled * last A1C in 04/2023 was 11. * on lantus 25 units bid * Continue Accu-Cheks since been on sliding scale insulin.Glucose is 300. * DVT prophylaxis: lovenox Code status: full code * Patient counseled extensively about different types of CODE STATUS including full code, DNR CCA and DNR CCA. Patient elects to be full code. Laboratory Results 06/14/23 22:18: POC Glucose 193 H 06/15/23 05:49: WBC 6.5, RBC 4.70, Hgb 12.0, Hct 38.5, MCV 81.9, MCH 25.5 L, MCHC 31.2 L, RDW Std Deviation 41.6, RDW Coeff of [place] 14.1, Plt Count 201, MPV 10.2, Immature Gran % (Auto) 0.500, Neut % (Auto) 61.2, Lymph % (Auto) 22.9, [place] % (Auto) 8.9, Eos % (Auto) 5.7 H, Baso % (Auto) 0.8, Absolute Neuts (auto) 4.0, Absolute Lymphs (auto) 1.49, Nucleated RBC % 0, Sodium 140, Potassium 3.1 L , Chloride 101, Carbon Dioxide 32.0, Anion Gap 7, BUN 15, Creatinine 0.72, Estim Creat Clear Calc 100.30, Est GFR (MDRD) Af Amer 110, Est GFR (MDRD) Non-Af 91, BUN/Creatinine Ratio 20.9 H, Glucose 100, Calcium 8.8, Phosphorus 4.9, Magnesium 2.1 06/15/23 08:12: POC Glucose 107 H 06/15/23 09:01: Troponin I High Sens 17 06/15/23 10:55: POC Glucose 189 H 06/15/23 12:11: POC Glucose 219 H 06/15/23 17:06: POC Glucose 91 Clinical Impression(s) from Imaging Studies Chest CTA 06/12/23 21:05 IMPRESSION: Negative CTA chest examination, without a demonstrated pulmonary embolism or arterial dissection. Cardiomegaly with mild bilateral pleural effusions and early congestive heart failure. Right adrenal adenoma measuring 2.2 cm. No further follow-up imaging recommended. Left upper no pole simple cyst measuring 2 cm, with no further follow-up imaging recommended. Electronically Signed: Laura Sam MD at 23:00 EST , Ankle X-Ray 06/15/23 08:21 IMPRESSION: Old avulsion fracture of the lateral malleolus. Clinical Impression(s) from Imaging Studies Chest CTA 06/12/23 21:05 IMPRESSION: Negative CTA chest examination, without a demonstrated pulmonary embolism or arterial dissection. Cardiomegaly with mild bilateral pleural effusions and early congestive heart failure. Right adrenal adenoma measuring 2.2 cm. No further follow-up imaging recommended. Left upper no pole simple cyst measuring 2 cm, with no further follow-up imaging recommended. Laboratory Results 06/12/23 20:30: WBC 8.0, RBC 4.92, Hgb 12.7, Hct 40.0, MCV 81.3, MCH 25.8 L, MCHC 31.8 L, RDW Std Deviation 41.9, RDW Coeff of [place] 14.4, Plt Count 150, MPV 11.3, Immature Gran % (Auto) 0.300, Neut % (Auto) 68.5, Lymph % (Auto) 20.3, [place] % (Auto) 6.0, Eos % (Auto) 3.9, Baso % (Auto) 1.0, Absolute Neuts (auto) 5.5, Absolute Lymphs (auto) 1.61, Nucleated RBC % 0, Differential Comment SCANNED, PT Cancelled, INR Cancelled, APTT Cancelled, Sodium 136, Potassium 4.0, Chloride 103, Carbon Dioxide 27.0, Anion Gap 6, BUN 9, Creatinine 0.75, Estim Creat Clear Calc 140.88, Est GFR (MDRD) Af Amer 105, Est GFR (MDRD) Non-Af 86, BUN/Creatinine Ratio 12.0, Glucose 272 H, Calcium 9.1, Troponin I High Sens 22, B-Natriuretic Peptide 596.3 H 06/12/23 22:05: PT 12.7, INR 1.0, APTT 27.5 06/13/23 05:39: WBC 8.5, RBC 4.73, Hgb 12.2, Hct 38.5, MCV 81.4, MCH 25.8 L, MCHC 31.7 L, RDW Std Deviation 42.3, RDW Coeff of [place] 14.3, Plt Count 170, MPV 9.8, Immature Gran % (Auto) 0.600, Neut % (Auto) 79.1 H, Lymph % (Auto) 11.4 L, [place] % (Auto) 4.9, Eos % (Auto) 3.2, Baso % (Auto) 0.8, Absolute Neuts (auto) 6.8, Absolute Lymphs (auto) 0.97, Nucleated RBC % 0, Sodium 137, Potassium 3.8, Chloride 101, Carbon Dioxide 29.0, Anion Gap 7, BUN 8, Creatinine 0.68, Estim Creat Clear Calc 106.20, Est GFR (MDRD) Af Amer 117, Est GFR (MDRD) Non-Af 97, BUN/Creatinine Ratio 11.7, Glucose 276 H, Calcium 8.4 L, Troponin I High Sens 23 06/13/23 07:32: Troponin I High Sens 17 06/13/23 07:50: POC Glucose 300 H 06/13/23 10:51: Troponin I High Sens 17 Charges/Coding Visit Charges Inpatient E&M: 79185 Subs Hosp L2
[2023-06-15] MEDS: Morphine 2 MG/ML Syringe 1 MG IV ×2 (15:52→22:42)
[2023-06-15] MEDS: 0.9% Saline Lock 10 ML Syringe IV ×2 (15:52→22:45)
[2023-06-15 17:29] LABS: Bedside Glucose 91 mg/dL (74-106)
[2023-06-15] MEDS: Atorvastatin Calcium 80 MG Tablet PO (22:29)
[2023-06-16] MEDS: Ondansetron 4 MG/2 ML Vial IV ×2 (00:47→09:03)
[2023-06-16 01:33] LABS: Bedside Glucose 172 mg/dL (74-106)
[2023-06-16 04:11] VITALS: BP 95/58; PULSE 74; RESP 18; TEMP 35.6; O2SAT 92
[2023-06-16] MEDS: Morphine 2 MG/ML Syringe 1 MG IV ×2 (04:31→08:19)
[2023-06-16] MEDS: 0.9% Saline Lock 10 ML Syringe IV (04:33)
[2023-06-16 04:36] VITALS: BP 124/83; PULSE 79; RESP 18; TEMP 36.4; O2SAT 100
[2023-06-16] MEDS: Gabapentin 300 MG Capsule PO (05:58)
[2023-06-16 07:49] VITALS: BP 119/80; PULSE 79; RESP 18; TEMP 36.4; O2SAT 97
[2023-06-16 08:03] VITALS: O2SAT 97
[2023-06-16 08:10] LABS: Bedside Glucose 81 mg/dL (74-106)
[2023-06-16] MEDS: Aspirin 81 MG TAB.CHEW PO (08:20)
[2023-06-16] MEDS: Carvedilol 6.25 MG Tablet PO (08:21)
--- NOTE | 2023-06-16 08:42 | PCM.DC.SUM ---
Providers Date of Admission: 06/13/23 Primary Care Physician: [facility] Consultations 06/15/23 15:32 Consult: Podiatry Routine Consulting Provider: Emanuel Gallagher Reason for Consult: Left lateral malleolus avulsion fracture EMERGENT Consult: No MD Notified: Yes Date Notified: 06/15/23 Time Notified: 15:32 Method of Notification: Text Reason For Visit: ACUTE ON CHRONIC HFREF Diagnosis Discharge Diagnosis (1) CHF (congestive heart failure): Status: Acute Code(s): I50.9 - Heart failure, unspecified (2) Acute dyspnea: Status: Acute Code(s): R06.00 - Dyspnea, unspecified Plan Patient admitted with shortness of breath and lower extremity swelling that is started suddenly day before admission. She could not catch her breath. Patient is on Lasix at home. Denies fever. #Acute on chronic exacerbation of combined HF: Patient is still in the ER admitted last night for PCU: Complaining of mild chest pain in the middle but no radiation.Serial troponins are negative.BNP elevated at 529. I EKG showed no acute ST changes CT chest showed no PE but showed cardiomegaly with mild bilateral pleural effusions and early congestive heart failure. on IV lasix 40mg bid. Heart failure core measures including intake and output, fluid restriction less than 1500 mL, daily weight monitoring, kidney and electrolytes monitoring. 2D echo from showed EF of 15% with severe segmental systolic dysfunction and stage 3 diastolic dysfunction titrate oxytgen to maintain sats >90% breathing treatment with bronchodilators 06/14: Blood pressure 94/61 heart rate 72. Lasix is hold. Patient also having diarrhea.. BP systolic low 100 since last night. I will start on Ringer lactate 2 L at about 75 mill per hour as patient is very dehydrated. 06/15: Blood pressure is improved 116/83. Lasix from tomorrow AM. Mild hypokalemia potassium replaced. Acute gastroenteritis for last 2 days: Yesterday she had nausea vomiting today diarrhea. Mild abdominal cramps.Stool sample ordered. No exam finding mild nonspecific tenderness otherwise benign. 06/15: Acute gastroenteritis has resolved. Dehydration resolved. Left transmetatarsal amputation with history of diabetic foot in the past: Patient complained of left hip pain. X-ray of left ankle was done which shows old fracture of left malleolus but the fracture was not present in the x-ray of May 2023. Podiatry is consulted for further opinion. Left foot cam boot and conservative management. #Hypoxia due to acute on chronic combined heart failure 06/14: Hypoxia has resolved. #History of CAD and peripheral arterial disease likely an ischemic cardiomyopathy due to echo findings as above on aspirin and carvedilol as well as plavix and high intensity statin Patient had left TMA and right second toe amputation. Patient also had a stent in right leg probably SFA patient is a current smoker. Continue baby aspirin and Plavix. #Hypertension; on carvedilol and spironolactone. Not on SELENE-I/ARB The patient is started on Entresto 24-26 1 tablet twice daily. #Hyperlipidemia: on statin #GERD: on PPI #Anxiety and depression: on lexapro #Type 2 diabetes mellitus poorly controlled last A1C in 04/2023 was 11. on lantus 25 units bid Continue Accu-Cheks since been on sliding scale insulin.Glucose is 300. DVT prophylaxis: lovenox Code status: full code Patient counseled extensively about different types of CODE STATUS including full code, DNR CCA and DNR CCA. Patient elects to be full code. Laboratory Results 06/14/23 22:18: POC Glucose 193 H 06/15/23 05:49: WBC 6.5, RBC 4.70, Hgb 12.0, Hct 38.5, MCV 81.9, MCH 25.5 L, MCHC 31.2 L, RDW Std Deviation 41.6, RDW Coeff of Spencer 14.1, Plt Count 201, MPV 10.2, Immature Gran % (Auto) 0.500, Neut % (Auto) 61.2, Lymph % (Auto) 22.9, [place] % (Auto) 8.9, Eos % (Auto) 5.7 H, Baso % (Auto) 0.8, Absolute Neuts (auto) 4.0, Absolute Lymphs (auto) 1.49, Nucleated RBC % 0, Sodium 140, Potassium 3.1 L, Chloride 101, Carbon Dioxide 32.0, Anion Gap 7, BUN 15, Creatinine 0.72, Estim Creat Clear Calc 100.30, Est GFR (MDRD) Af Amer 110, Est GFR (MDRD) Non-Af 91, BUN/Creatinine Ratio 20.9 H, Glucose 100, Calcium 8.8, Phosphorus 4.9, Magnesium 2.1 06/15/23 08:12: POC Glucose 107 H 06/15/23 09:01: Troponin I High Sens 17 06/15/23 10:55: POC Glucose 189 H 06/15/23 12:11: POC Glucose 219 H 06/15/23 17:06: POC Glucose 91 Clinical Impression(s) from Imaging Studies Chest CTA 06/12/23 21:05 IMPRESSION: Negative CTA chest examination, without a demonstrated pulmonary embolism or arterial dissection. Cardiomegaly with mild bilateral pleural effusions and early congestive heart failure. Right adrenal adenoma measuring 2.2 cm. No further follow-up imaging recommended. Left upper no pole simple cyst measuring 2 cm, with no further follow-up imaging recommended. Electronically Signed: Laura Sam MD at 23:00 EST Reading Location ID and State: [address] [place] [address] , Service support , Ankle X-Ray 06/15/23 08:21 IMPRESSION: Old avulsion fracture of the lateral malleolus. Clinical Impression(s) from Imaging Studies Chest CTA 06/12/23 21:05 IMPRESSION: Negative CTA chest examination, without a demonstrated pulmonary embolism or arterial dissection. Cardiomegaly with mild bilateral pleural effusions and early congestive heart failure. Right adrenal adenoma measuring 2.2 cm. No further follow-up imaging recommended. Left upper no pole simple cyst measuring 2 cm, with no further follow-up imaging recommended. Laboratory Results 06/12/23 20:30: WBC 8.0, RBC 4.92, Hgb 12.7, Hct 40.0, MCV 81.3, MCH 25.8 L, MCHC 31.8 L, RDW Std Deviation 41.9, RDW Coeff of Spencer 14.4, Plt Count 150, MPV 11.3, Immature Gran % (Auto) 0.300, Neut % (Auto) 68.5, Lymph % (Auto) 20.3, [place] % (Auto) 6.0, Eos % (Auto) 3.9, Baso % (Auto) 1.0, Absolute Neuts (auto) 5.5, Absolute Lymphs (auto) 1.61, Nucleated RBC % 0, Differential Comment SCANNED, PT Cancelled, INR Cancelled, APTT Cancelled, Sodium 136, Potassium 4.0, Chloride 103, Carbon Dioxide 27.0, Anion Gap 6, BUN 9, Creatinine 0.75, Estim Creat Clear Calc 140.88, Est GFR (MDRD) Af Amer 105, Est GFR (MDRD) Non-Af 86, BUN/Creatinine Ratio 12.0, Glucose 272 H, Calcium 9.1, Troponin I High Sens 22, B-Natriuretic Peptide 596.3 H 06/12/23 22:05: PT 12.7, INR 1.0, APTT 27.5 06/13/23 05:39: WBC 8.5, RBC 4.73, Hgb 12.2, Hct 38.5, MCV 81.4, MCH 25.8 L, MCHC 31.7 L, RDW Std Deviation 42.3, RDW Coeff of Spencer 14.3, Plt Count 170, MPV 9.8, Immature Gran % (Auto) 0.600, Neut % (Auto) 79.1 H, Lymph % (Auto) 11.4 L, [place] % (Auto) 4.9, Eos % (Auto) 3.2, Baso % (Auto) 0.8, Absolute Neuts (auto) 6.8, Absolute Lymphs (auto) 0.97, Nucleated RBC % 0, Sodium 137, Potassium 3.8, Chloride 101, Carbon Dioxide 29.0, Anion Gap 7, BUN 8, Creatinine 0.68, Estim Creat Clear Calc 106.20, Est GFR (MDRD) Af Amer 117, Est GFR (MDRD) Non-Af 97, BUN/Creatinine Ratio 11.7, Glucose 276 H, Calcium 8.4 L, Troponin I High Sens 23 06/13/23 07:32: Troponin I High Sens 17 06/13/23 07:50: POC Glucose 300 H 06/13/23 10:51: Troponin I High Sens 17 Medications at Discharge Home Medications cholecalciferol (vitamin D3) 25 mcg (1,000 unit) tablet 1,000 unit PO DAILY vitamin 07/25/22 calcium carbonate 500 mg calcium (1,250 mg) tablet 1 tablet PO DAILY supplement 08/09/22 aspirin 81 mg capsule 81 mg PO DAILY heart health 08/10/22 nicotine 21 mg/24 hr daily transdermal patch 21 mg transdermal DAILY stop smoking #30 ea 09/02/22 atorvastatin 80 mg tablet 80 mg PO DAILY cholesterol #30 tabs 02/03/23 clopidogrel 75 mg tablet 75 mg PO DAILY anti platelet #30 tabs 02/03/23 escitalopram oxalate 10 mg tablet (Lexapro) 10 mg PO DAILY mental health #30 tabs 02/03/23 dapagliflozin propanediol 10 mg tablet (Farxiga) 10 mg PO DAILY diabetes #90 tabs 03/26/23 pantoprazole 40 mg tablet,delayed release 40 mg PO DAILY reflux 04/18/23 simethicone 125 mg capsule 125 mg PO TID-QID PRN abdominal distention 04/18/23 carvedilol 12.5 mg tablet 12.5 mg PO BIDCM #60 tabs 05/07/23 furosemide 40 mg tablet 40 mg PO BIDLX #60 tabs 05/07/23 sacubitril 24 mg-valsartan 26 mg tablet (Entresto) 1 tab PO BID 30 days #60 tabs 05/07/23 gabapentin 300 mg capsule 300 mg PO TID #90 caps 05/22/23 insulin glargine 100 unit/mL subcutaneous solution (Lantus U-100 Insulin) 20 unit (0.2 mL) subcut BID diabetes #10 mL 06/16/23 spironolactone 50 mg tablet 50 mg PO DAILY 30 days #30 tabs 06/16/23 Weight / BMI Weight Weight: 175 lb 1.599 oz Body Mass Index (BMI) 27.4 ABG / Lab / Microbiology Data 06/15/23 05:49 06/16/23 05:52 Laboratory: Laboratory Results - last 24 hr 06/15/23 05:49: Phosphorus 4.9, Magnesium 2.1 06/15/23 09:01: Troponin I High Sens 17 06/15/23 10:55: POC Glucose 189 H 06/15/23 12:11: POC Glucose 219 H 06/15/23 17:06: POC Glucose 91 06/15/23 22:31: POC Glucose 172 H 06/16/23 07:45: POC Glucose 81 Radiography Diagnostic Testing: Radiology Impression Ankle X-Ray 06/15/23 08:21 IMPRESSION: Old avulsion fracture of the lateral malleolus. Electronically Signed: Ryan Tejeda MD at 12:33 EST , D/C Instructions Discharge Diet: Low fat / Low cholesterol and 2000 mg Sodium Diet Weight Bearing Status: Weight bearing as tolerated Call your doctor if you observe: Fever of 101 or Higher, Coldness, Increased Pain, Numbness or Tingling, Change in Color, Inability to urinate, Inability to have a bowel movement, Using more than 1 pad per hour, Shortness of breath, Dizziness, Fainting spells, Swelling in the ankles, Chest pain, Prolonged hiccupping, Increased palpitations (irregular heartbeat) and Calf discomfort When: IN 2 WEEKS Meaningful Use Info Meaningful Use Diagnoses (Choose all that apply): CHF CHF SELENE/ARB ordered at discharge?: Yes Documented LVEF (%): 15 Discharge Plan Admission Admit Date/Time: 06/13/23 01:12 Attending Provider: Jeremy Alexander [facility] Providers: Talisha Boykin; Emanuel Gallagher Discharge Orders/Prescriptions Prescriptions: New spironolactone 50 mg Tablet 50 mg PO DAILY 30 Days Qty: 30 2RF Rx Instructions: Hold for hyperkalemia, serum potassium more than 5.0 Continued calcium carbonate 500 mg calcium (1,250 mg) tablet 1 tablet PO DAILY pantoprazole 40 mg tablet,delayed release (DR/EC) 40 mg PO DAILY simethicone 125 mg capsule 125 mg PO TID-QID PRN (Reason: abdominal distention) cholecalciferol (vitamin D3) 25 mcg (1,000 unit) tablet 1,000 unit PO DAILY Patient Comments: TAKE 1 TABLET DAILY aspirin 81 mg Capsule 81 mg PO DAILY nicotine 21 mg/24 hr Patch 24 Hour 21 mg transdermal DAILY Qty: 30 0RF clopidogrel 75 mg Tablet 75 mg PO DAILY Qty: 30 0RF Patient Comments: patient stated pretty sure I still take that atorvastatin 80 mg tablet 80 mg PO DAILY Qty: 30 0RF escitalopram oxalate [Lexapro] 10 mg tablet 10 mg PO DAILY Qty: 30 0RF carvedilol 12.5 mg Tablet 12.5 mg PO BIDCM Qty: 60 0RF Entresto 24-26 mg Tablet 1 tab PO BID 30 Days Qty: 60 0RF furosemide 40 mg Tablet 40 mg PO BIDLX Qty: 60 0RF gabapentin 300 mg capsule 300 mg PO TID Qty: 90 0RF Rx Instructions: Take 300 mg tablet only twice a day for the first 3 days then you may continue through 100 mg 3 times a day for the remainder of the prescription dapagliflozin propanediol [Farxiga] 10 mg tablet 10 mg PO DAILY Qty: 90 3RF Patient Comments: patient stated I know I am supposed to be taking this one but I never got a notification from the pharmacy to come pick it up Changed insulin glargine [Lantus U-100 Insulin] 100 unit/mL solution 20 unit subcut BID Qty: 10 2RF Rx Instructions: Hold if glucose less than 130 mg/dl Discontinued spironolactone 25 mg Tablet 25 mg PO DAILY Qty: 30 0RF Referrals / Follow Up: Yesenia Zambrano PA [Med Staff - Adv Practice Prof] - Within 2 Weeks [facility] [Primary Care Provider] - Disposition Disposition (needs filled in before D/C Order can be placed): Home, Self Care Charges/Coding Visit Charges Inpatient E&M: 68801 Disch Hosp >30min
[2023-06-16 08:58] LABS: Anion Gap 7 (5-15); BUN 14 mg/dL (7-18); BUN/Creat Ratio 20.9 RATIO (10-20); Calcium,Total 8.9 mg/dL (8.5-10.1); Chloride 105 mmol/L (98-107); Creatinine, Serum 0.67 mg/dL (0.55-1.02); EST Glomerular Filtration Rate 98 mL/min (>60); Est Glom Filt Rate - Afr Amer 119 mL/min (>60); Estimated Creatinine Clearance 107.78 ml/min; Glucose 65 mg/dL (74-106); Potassium 3.7 mmol/L (3.5-5.1); Sodium Level 139 mmol/L (136-145)
[2023-06-16] MEDS: Calcium Carbonate 500 MG Tablet PO (09:03)
[2023-06-16] MEDS: Spironolactone 50 MG Tablet PO (09:05)
[2023-06-16] MEDS: Insulin Glargine-YFGN 100 UNIT/ML Pen 25 UNIT SC (09:06)
[2023-06-16] MEDS: Empagliflozin 25 MG Tablet PO (09:06)
[2023-06-16] MEDS: SACUBITRIL/VALSARTAN 24/26 MG TABLET 1 EACH PO (09:06)
[2023-06-16] MEDS: Pantoprazole Sodium 40 MG Tablet PO (09:06)
[2023-06-16] MEDS: Cholecalciferol (VIT D3) 25 MCG TABLET (1,000 UNITS) PO (09:06)
[2023-06-16] MEDS: Clopidogrel Bisulfate 75 MG Tablet PO (09:06)
[2023-06-16] MEDS: Escitalopram Oxalate 10 MG Tablet PO (09:15)
[2023-06-16] MEDS: Furosemide 40 MG Tablet PO (09:15)
--- NOTE | 2023-06-16 09:20 | DS.PCM_ITS ---
Providers Date of Admission: 06/13/23 Date of Discharge: 06/16/23 Primary Care Physician: [facility] Consultations 06/15/23 15:32 Consult: Podiatry Routine Consulting Provider: Emanuel Gallagher Reason for Consult: Left lateral malleolus avulsion fracture EMERGENT Consult: No MD Notified: Yes Date Notified: 06/15/23 Time Notified: 15:32 Method of Notification: Text Reason For Visit: ACUTE ON CHRONIC HFREF Diagnosis Discharge Diagnosis (1) CHF (congestive heart failure): Status: Acute Code(s): I50.9 - Heart failure, unspecified (2) Acute dyspnea: Status: Acute Code(s): R06.00 - Dyspnea, unspecified Plan Patient admitted with shortness of breath and lower extremity swelling that is started suddenly day before admission. She could not catch her breath. Patient is on Lasix at home. Denies fever. #Acute on chronic exacerbation of combined HF: Patient is still in the ER admitted last night for PCU: Complaining of mild chest pain in the middle but no radiation.Serial troponins are negative.BNP elevated at 529. I * EKG showed no acute ST changes * CT chest showed no PE but showed cardiomegaly with mild bilateral pleural effusions and early congestive heart failure. * on IV lasix 40mg bid. Heart failure core measures including intake and output, fluid restriction less than 1500 mL, daily weight monitoring, kidney and electrolytes monitoring. * 2D echo from showed EF of 15% with severe segmental systolic dysfunction and stage 3 diastolic dysfunction * titrate oxytgen to maintain sats >90% * breathing treatment with bronchodilators 06/14: Blood pressure 94/61 heart rate 72. Lasix is hold. Patient also having diarrhea.. BP systolic low 100 since last night. I will start on Ringer lactate 2 L at about 75 mill per hour as patient is very dehydrated. 06/15: Blood pressure is improved 116/83. Lasix from tomorrow AM. Mild hypokalemia potassium replaced. 06/16: Blood pressure in normal range. Patient is euvolemic. Lasix resumed. Prescription given for increased dose of spironolactone 50 mg daily. Continue furosemide 40 mg twice daily. Follow-up in cardiology clinic Acute gastroenteritis for last 2 days: Yesterday she had nausea vomiting today diarrhea. Mild abdominal cramps.Stool sample ordered. No exam finding mild nonspecific tenderness otherwise benign. 06/15: Acute gastroenteritis has resolved. Dehydration resolved. Left transmetatarsal amputation with history of diabetic foot in the past: Cecily ent complained of left hip pain. X-ray of left ankle was done which shows old fracture of left malleolus but the fracture was not present in the x-ray of May 2023. Podiatry is consulted for further opinion. Left foot cam boot and conservative management. #Hypoxia due to acute on chronic combined heart failure 06/14: Hypoxia has resolved. #History of CAD and peripheral arterial disease * likely an ischemic cardiomyopathy due to echo findings as above * on aspirin and carvedilol as well as plavix and high intensity statin * Patient had left TMA and right second toe amputation. Patient also had a stent in right leg probably SFA patient is a current smoker. Continue baby aspirin and Plavix. #Hypertension; on carvedilol and spironolactone. Not on SELENE-I/ARB The patient is started on Entresto 24-26 1 tablet twice daily. #Hyperlipidemia: on statin #GERD: on PPI #Anxiety and depression: on lexapro #Type 2 diabetes mellitus * poorly controlled * last A1C in 04/2023 was 11. * on lantus 25 units bid * Continue Accu-Cheks since been on sliding scale insulin.Glucose is 300. 06/16: Good [place] Accu-Cheks low 81, 91. It fluctuates, high at night 219 and 172 during day it was in BMP glucose was 100 yesterday and 65 today in insurance law specialist. Lantus insulin dose decreased From 25 to 20 units subcutaneous twice daily. DVT prophylaxis: lovenox Code status: full code * Patient counseled extensively about different types of CODE STATUS including full code, DNR CCA and DNR CCA. Patient elects to be full code. Discharge medication reconciliation done. Discharge follow-up instructions completed. Discharge process discussed with the patient and all questions were answered to patient's satisfaction. Follow with PCP in 1 to 2 weeks Total time spent, exact 35 minutes on discharge meds reconciliation, examination, coordination of care with nurses and ancillary staff, review of imaging and blood test and discussion with the patient on follow-up instruc tions. Laboratory Results 06/15/23 09:01: Troponin I High Sens 17 06/15/23 10:55: POC Glucose 189 H 06/15/23 12:11: POC Glucose 219 H 06/15/23 17:06: POC Glucose 91 06/15/23 22:31: POC Glucose 172 H 06/16/23 05:52: Sodium 139, Potassium 3.7, Chloride 105, Carbon Dioxide 27.0, Anion Gap 7, BUN 14, Creatinine 0.67, Estim Creat Clear Calc 107.78, Est GFR (MDRD) Af Amer 119, Est GFR (MDRD) Non-Af 98, BUN/Creatinine Ratio 20.9 H, Glucose 65 L, Calcium 8.9 06/16/23 07:45: POC Glucose 81 Clinical Impression(s) from Imaging Studies Chest CTA 06/12/23 21:05 IMPRESSION: Negative CTA chest examination, without a demonstrated pulmonary embolism or arterial dissection. Cardiomegaly with mild bilateral pleural effusions and early congestive heart failure. Right adrenal adenoma measuring 2.2 cm. No further follow-up imaging recommended. Left upper no pole simple cyst measuring 2 cm, with no further follow-up imaging recommended. Electronically Signed: Laura Sam MD at 23:00 EST , Ankle X-Ray 06/15/23 08:21 IMPRESSION: Old avulsion fracture of the lateral malleolus. Medications at Discharge Home Medications cholecalciferol (vitamin D3) 25 mcg (1,000 unit) tablet 1,000 unit PO DAILY vitamin 07/25/22 calcium carbonate 500 mg calcium (1,250 mg) tablet 1 tablet PO DAILY supplement 08/09/22 aspirin 81 mg capsule 81 mg PO DAILY heart health 08/10/22 nicotine 21 mg/24 hr daily transdermal patch 21 mg transdermal DAILY stop smoking #30 ea 09/02/22 atorvastatin 80 mg tablet 80 mg PO DAILY cholesterol #30 tabs 02/03/23 clopidogrel 75 mg tablet 75 mg PO DAILY anti platelet #30 tabs 02/03/23 escitalopram oxalate 10 mg tablet (Lexapro) 10 mg PO DAILY mental health #30 tabs 02/03/23 dapagliflozin propanediol 10 mg tablet (Farxiga) 10 mg PO DAILY diabetes #90 tabs 03/26/23 pantoprazole 40 mg tablet,delayed release 40 mg PO DAILY reflux 04/18/23 simethicone 125 mg capsule 125 mg PO TID-QID PRN abdominal distention 04/18/23 carvedilol 12.5 mg tablet 12.5 mg PO BIDCM #60 tabs 05/07/23 furosemide 40 mg tablet 40 mg PO BIDLX #60 tabs 05/07/23 sacubitril 24 mg-valsartan 26 mg tablet (Entresto) 1 tab PO BID 30 days #60 tabs 05/07/23 gabapentin 300 mg capsule 300 mg PO TID #90 caps 05/22/23 insulin glargine 100 unit/mL subcutaneous solution (Lantus U-100 Insulin) 20 unit (0.2 mL) subcut BID diabetes #10 mL 06/16/23 spironolactone 50 mg tablet 50 mg PO DAILY 30 days #30 tabs 06/16/23 Physical Exam Narrative Seen and examined. Patient is dehydrated yesterday and therefore on IV fluid. Mild leg swelling. Patient complained of left heel pain. She has left TMA. X-ray of ankle ordered. Her diarrhea and abdominal cramps have resolved. Physical exam General: Alert, Oriented x3, Cooperative. Well-hydrated. HEENT: Pale conjunctiva atraumatic, PERRLA, EOMI, Normocephalic Oral: Oral mucosa moist. No Gingival or Mucosal Lesions/ Ulcerations Neck: Supple, No JVD, Negative Carotid Bruits Lungs: Air entry diminished in bilateral lung bases. No crepitation/rhonchi Cardiovascular: Regular rate, Regular Rhythm, Normal S1, Normal S2, no murmur. Decreased pulsation of HEALTH CARE ANALYST and dorsalis artery left more than right. Abdomen: Bowel Sounds Present, Soft, Non Tender, Non-Distended : No renal angle tenderness. No suprapubic tenderness. Extremities: Bilateral lower leg/ankle edema improving. Capillary Refill Less than 3 Seconds Skin: Shiny smooth skin with no hair suggestive of cutaneous signs of PAD Musculoskeletal: Mild tenderness over left heel. Left TMA. Right second toe amputation. Neurological: Cranial nerves II-XII grossly intact, DTR 2+/4. No acute focal neurological deficit. Psych/Mental Status: Flat affect. Weight / BMI Weight Weight: 175 lb 1.599 oz Body Mass Index (BMI) 27.4 ABG / Lab / Microbiology Data 06/15/23 05:49 06/16/23 05:52 Laboratory: Laboratory Results - last 24 hr 06/15/23 09:01: Troponin I High Sens 17 06/15/23 10:55: POC Glucose 189 H 06/15/23 12:11: POC Glucose 219 H 06/15/23 17:06: POC Glucose 91 06/15/23 22:31: POC Glucose 172 H 06/16/23 05:52: Sodium 139, Potassium 3.7, Chloride 105, Carbon Dioxide 27.0, Anion Gap 7, BUN 14, Creatinine 0.67, Estim Creat Clear Calc 107.78, Est GFR (MDRD) Af Amer 119, Est GFR (MDRD) Non-Af 98, BUN/Creatinine Ratio 20.9 H, Glucose 65 L, Calcium 8.9 06/16/23 07:45: POC Glucose 81 Radiography Diagnostic Testing: Radiology Impression Ankle X-Ray 06/15/23 08:21 IMPRESSION: Old avulsion fracture of the lateral malleolus. Electronically Signed: Ryan Tejeda MD at 12:33 EST Reading Location ID and State: [facility] / [place] , Service support , D/C Instructions Discharge Diet: Low fat / Low cholesterol and 2000 mg Sodium Diet Weight Bearing Status: Weight bearing as tolerated Call your doctor if you observe: Fever of 101 or Higher, Coldness, Increased Pain, Numbness or Tingling, Change in Color, Inability to urinate, Inability to have a bowel movement, Using more than 1 pad per hour, Shortness of breath, Dizziness, Fainting spells, Swelling in the ankles, Chest pain, Prolonged hiccupping, Increased palpitations (irregular heartbeat) and Calf discomfort When: IN 2 WEEKS Meaningful Use Info Meaningful Use Diagnoses (Choose all that apply): CHF CHF SELENE/ARB ordered at discharge?: Yes Documented LVEF (%): 15 Discharge Plan Admission Admit Date/Time: 06/13/23 01:12 Primary Reason for Your Visit: Acute on chronic heart failure, diarrhea/gastr oenteritis Attending Provider: Jeremy Alexander [facility] Providers: Talisha Boykin; Emanuel Gallagher Discharge Orders/Prescriptions Prescriptions: New spironolactone 50 mg Tablet 50 mg PO DAILY 30 Days Qty: 30 2RF Rx Instructions: Hold for hyperkalemia, serum potassium more than 5.0 Continued calcium carbonate 500 mg calcium (1,250 mg) tablet 1 tablet PO DAILY pantoprazole 40 mg tablet,delayed release (DR/EC) 40 mg PO DAILY simethicone 125 mg capsule 125 mg PO TID-QID PRN (Reason: abdominal distention) cholecalciferol (vitamin D3) 25 mcg (1,000 unit) tablet 1,000 unit PO DAILY Patient Comments: TAKE 1 TABLET DAILY aspirin 81 mg Capsule 81 mg PO DAILY nicotine 21 mg/24 hr Patch 24 Hour 21 mg transdermal DAILY Qty: 30 0RF clopidogrel 75 mg Tablet 75 mg PO DAILY Qty: 30 0RF Patient Comments: patient stated pretty sure I still take that atorvastatin 80 mg tablet 80 mg PO DAILY Qty: 30 0RF escitalopram oxalate [Lexapro] 10 mg tablet 10 mg PO DAILY Qty: 30 0RF carvedilol 12.5 mg Tablet 12.5 mg PO BIDCM Qty: 60 0RF Entresto 24-26 mg Tablet 1 tab PO BID 30 Days Qty: 60 0RF furosemide 40 mg Tablet 40 mg PO BIDLX Qty: 60 0RF gabapentin 300 mg capsule 300 mg PO TID Qty: 90 0RF Rx Instructions: Take 300 mg tablet only twice a day for the first 3 days then you may janki nue through 100 mg 3 times a day for the remainder of the prescription dapagliflozin propanediol [Farxiga] 10 mg tablet 10 mg PO DAILY Qty: 90 3RF Patient Comments: patient stated I know I am supposed to be taking this one but I never got a notification from the pharmacy to come pick it up Changed insulin glargine [Lantus U-100 Insulin] 100 unit/mL solution 20 unit subcut BID Qty: 10 2RF Rx Instructions: Hold if glucose less than 130 mg/dl Discontinued spironolactone 25 mg Tablet 25 mg PO DAILY Qty: 30 0RF Referrals / Follow Up: Yesenia Zambrano PA [Med Staff - Adv Practice Prof] - Within 2 Weeks [facility] [Primary Care Provider] - Emanuel Gallagher DPM [Med Staff - Active Staff] - Within 2 Weeks (For left ankle fracture. Status post TMA.) Disposition Disposition (needs filled in before D/C Order can be placed): Home, Self Care Charges/Coding Visit Charges Inpatient E&M: 99118 Disch Hosp >30min
[2023-06-16 11:30] VITALS: O2SAT 93; O2SAT 97
[2023-06-16] MEDS: Insulin Lispro 100 UNIT/ML INSULN.PEN 10 UNIT SC (11:47)
[2023-06-16 12:08] LABS: Bedside Glucose 161 mg/dL (74-106)
--- NOTE | 2023-06-20 12:49 | CCN.REFER ---
PATIENT AGREED TO PATIENT LINK AND SIGNED CONSENT IN HOUSE. HOWEVER, PATIENT IS NOT RETURNING ANY CALLS OR TEXT TO MAKE HOME VISIT TO SET PATIENT LINK DEVICE UP.
== END 2023-06-16 13:04 | disposition home or self-care (01) | DRG 194 ==
LOC: ED 06-13 00:05 → PCU 06-13 01:24
PROVIDERS: Admitting Provider Student in an Organized Health Care Education/Training Program; Emergency Provider Emergency Medicine; Visit Provider Internal Medicine
DX: I11.0 Hypertensive heart disease with heart failure (principal); D35.01 Benign neoplasm of right adrenal gland; E11.51 Type 2 diabetes mellitus with diabetic peripheral angiopathy without gangrene; I50.43 Acute on chronic combined systolic (congestive) and diastolic (congestive) heart failure; E11.65 Type 2 diabetes mellitus with hyperglycemia; Z79.4 Long term (current) use of insulin; F32.A Depression, unspecified; K21.9 Gastro-esophageal reflux disease without esophagitis; I25.5 Ischemic cardiomyopathy; E78.5 Hyperlipidemia, unspecified; I25.10 Atherosclerotic heart disease of native coronary artery without angina pectoris; F17.200 Nicotine dependence, unspecified, uncomplicated; K52.9 Noninfective gastroenteritis and colitis, unspecified; E87.6 Hypokalemia; Z79.82 Long term (current) use of aspirin; Z66 Do not resuscitate; Z79.02 Long term (current) use of antithrombotics/antiplatelets
CPT/HCPCS: 36415; 71275; 73610; 80048; 82962; 83735; 83880; 84100; 84484; 85025; 85610; 85730; 93005; 97110; 97162; 97802; 99284; 99406; J7120; Q9967; 90686; A4216; J1940; J2405

== ENCOUNTER 2023-06-19 09:01 | Emergency (ER) | payer MEDICAID, SELFPAY ==
[2023-06-19 09:03] VITALS: BP 142/94; PULSE 102; RESP 18; TEMP 35; O2SAT 97
[2023-06-19 09:12] VITALS: BMI 26.2
--- NOTE | 2023-06-19 09:43 | RAD_ITS ---
STUDY: X-RAY - RIGHT KNEE REASON FOR EXAM: Female, 52 years old. Fall TECHNIQUE: 4 view(s) of the knee. COMPARISON: None. FINDINGS: There is demineralization of the visualized distal femur. There is demineralization of the tibia and fibula. Normal proximal tibiofibular articulation. Normal medial femorotibial compartment. Normal lateral femorotibial compartment. There is mild degenerative arthrosis of the patellofemoral articulation. There are atherosclerotic calcifications. RAD/Knee 4 or More Views IMPRESSION: No acute abnormality is seen. Electronically Signed: Ryan Tejeda MD at 10:30 EST ,
--- NOTE | 2023-06-19 09:43 | RAD_ITS ---
STUDY: X-RAY - PELVIS AND RIGHT HIP REASON FOR EXAM: Female, 52 years old. Fall and pain TECHNIQUE: 3 views of the pelvis and hip. COMPARISON: Comparison is made with prior study dated September 18, 2022. FINDINGS: There is a non-specific bowel gas pattern. There are multiple calcified phleboliths. A vascular stent is seen in the right common femoral artery. There is narrowing with cortical sclerosis and osteophyte formation of the sacroiliac joint consistent with degenerative osteoarthritic changes. Stable focal linear sclerosis in the left iliac bone. Normal bilateral superior and inferior pubic rami. Normal pubic symphysis. Normal bilateral ischial tuberosities. Normal visualized femoral head. Normal acetabulum. Normal hip joint. RAD/HIP, UNI W/ Pelvis 2-3 Views IMPRESSION: Stable examination. No acute abnormality is seen. Electronically Signed: Ryan Tejeda MD at 10:32 EST ,
--- NOTE | 2023-06-19 09:44 | EDS_ITS ---
HPI HPI - Fall History of Present Illness Chief Complaint: Fall Detail of Chief Complaint: Discharge from the hospital on Sunday fell going into her home and injure Occured/Mechanism Occurred: Days Mechanism/Context: Yes same level fall Usually ambulates: Without assistance Pain/Injury Pain Location: lower extremity Quality of Pain: Dull and Aching Current Severity: Mild Maximum Severity: Mild Associated Symptoms Associated Symptoms: Negative for Parasthesias, Weakness, Loss of function, Inability to ambulate, Loss of consciousness or Amnesia Narrative Narrative: 52-year-old female past medical history of CAD, CHF, DVT on Eli and a history of diabetes. She was just in the hospital discharged on Sunday as she was going in her home she fell injuring her right hip and knee. Said it felt better on Sunday and then the pain got worse yesterday and she came in today to have it evaluated. Did not hit her head. No LOC. Prior right knee fracture. No prior hip injury or surgery. Prior similar symptoms: Yes Recent Illness/Hospitalization: Yes PFSH PFS Medical History Acute dyspnea Aftercare following surgery of the circulatory system Alcohol abuse Amputation toe CAD (coronary artery disease), eek coronary artery CHF (congestive heart failure) Depression Diabetes type 2, uncontrolled DVT (deep venous thrombosis) Essential hypertension GERD (gastroesophageal reflux disease) Hx of fracture of humerus Hyperlipidemia Hypoxemia Ischemic cardiomyopathy Myocardial infarct Osteoporosis Pericardial effusion Psychiatric disorder Pulmonary embolism Rheumatoid arthritis Seizures Sleep apnea Smoker Substance abuse Toe amputee Home Medications cholecalciferol (vitamin D3) 25 mcg (1,000 unit) tablet 1,000 unit PO DAILY vit [place] 07/25/22 [History Last Taken 02/01/23] calcium carbonate 500 mg calcium (1,250 mg) tablet 1 tablet PO DAILY supplement 08/09/22 [History Last Taken 02/01/23] aspirin 81 mg capsule 81 mg PO DAILY heart health 08/10/22 [History Last Taken 02/01/23] nicotine 21 mg/24 hr daily transdermal patch 21 mg transdermal DAILY stop smoking #30 ea 09/02/22 [Rx Last Taken 02/01/23] atorvastatin 80 mg tablet 80 mg PO DAILY cholesterol #30 tabs 02/03/23 [Rx Last Taken Unknown] clopidogrel 75 mg tablet 75 mg PO DAILY anti platelet #30 tabs 02/03/23 [Rx Last Taken Unknown] escitalopram oxalate 10 mg tablet (Lexapro) 10 mg PO DAILY mental health #30 tabs 02/03/23 [Rx Last Taken Unknown] dapagliflozin propanediol 10 mg tablet (Farxiga) 10 mg PO DAILY diabetes #90 tabs 03/26/23 [Rx Last Taken Unknown] pantoprazole 40 mg tablet,delayed release 40 mg PO DAILY reflux 04/18/23 [History Last Taken Unknown] simethicone 125 mg capsule 125 mg PO TID-QID PRN abdominal distention 04/18/23 [History Last Taken Unknown] carvedilol 12.5 mg tablet 12.5 mg PO BIDCM #60 tabs 05/07/23 [Rx Last Taken Unknown] furosemide 40 mg tablet 40 mg PO BIDLX #60 tabs 05/07/23 [Rx Last Taken Unknown] sacubitril 24 mg-valsartan 26 mg tablet (Entresto) 1 tab PO BID 30 days #60 tabs 05/07/23 [Rx Last Taken Unknown] gabapentin 300 mg capsule 300 mg PO TID #90 caps 05/22/23 [Rx Last Taken Unknown] insulin glargine 100 unit/mL subcutaneous solution (Lantus U-100 Insulin) 20 unit (0.2 mL) subcut BID diabetes #10 mL 06/16/23 [Rx Last Taken Unknown] spironolactone 50 mg tablet 50 mg PO DAILY 30 days #30 tabs 06/16/23 [Rx Last Taken Unknown] ondansetron 4 mg disintegrating tablet 4 mg PO Q8H PRN nausea and vomiting #7 tabs 06/19/23 [Rx Last Taken Unknown] Allergy/AdvReac Type Severity Reaction Status Date / Time latex Allergy Hives Verified 06/19/23 09:37 Family History Mother Thyroid disorder Diabetes Hypertension Grandmother Diabetes Uncle Diabetes Aunt Diabetes Other Heart disease Surgical History History of appendectomy History of cholecystectomy Social History household members: spouse and children housing: house Smoking Status: Current every day smoker tobacco type: cigarettes alcohol intake: never substance use type: marijuana what type of physical activity do you participate in: none do you feel safe at home: Yes ROS ROS ED ROS Narrative Nausea and vomiting. Right hip and right knee pain. Review of Systems ROS Unobtainable: Denies due to encephalopathy Constitutional Constitutional ED: Denies chills or fever(s) ENT ENT ED: Denies ear pain Cardiovascular Cardiovascular: Denies chest pain Respiratory/Chest Respiratory/Chest: Denies cough or dyspnea Gastrointestinal Gastrointestinal: Denies abdominal pain Genitourinary Genitourinary ED: Denies dysuria or hematuria Musculoskeletal Musculoskeletal: Denies arthralgias Integumentary Denies abscess Neurologic Neurologic: Denies headache(s) Psychiatric Psychiatric: Denies anxiety or depression Endocrine Endocrinology: Denies polydipsia Hematologic/Lymphatic Hematologic/Lymphatic: Denies easy bleeding or easy bruising Allergic/Immunologic Allergic/Immunologic ED: Denies mouth swelling or tongue swelling EXAM Physical Exam Narrative Exam Narrative: Well-appearing 52-year-old female. Vital signs are stable afebrile. Pulse ox 97% on room air no signs hypoxia. H EENT exam unremarkable. Atraumatic head and scalp. Neck nontender. Full range of motion. Trachea midline. Lungs clear to auscultation bilaterally. Heart regular rhythm rate about 95 no murmur. Chest wall and ribs nontender. Abdomen soft nontender. Pelvic girdle intact. Back and spine nontender. Mild tenderness right hip but she has full flexion extension right hip no shortening or rotation. Right knee has abrasion however she has full flexion extension right knee. Ligaments are intact. No effusion. Normal dorsi plantarflexion to her right foot. Left lower extremity unremarkable except she has had toes amputated from the left foot. Upper extremities are nontender. 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 Neurologically she is awake and alert with no focal motor deficits. Const Vital Signs: 06/19/23 09:03 06/19/23 09:35 06/19/23 09:59 Temperature 95.0 F L Temperature Source Temporal Pulse Rate 102 H Respiratory Rate 18 14 Respiratory Effort Normal Non-Labored Respiratory Depth Normal Respiratory Pattern Normal Blood Pressure 142/94 H Blood Pressure Mean 110 Pulse Ox 97 Oxygen Delivery Method Room Air Room Air Positive well nourished and well developed; Negative for obese, cachectic, contractures or unkempt General Appearance ED: well developed and NAD; Negative for unkempt, cachectic or contractures Nutritional Appearance: Negative for cachectic or obese HEENT Reports normocephalic atraumatic; Negative for trauma, contusion, hematoma or tenderness Eyes PERRL and EOMs intact bilaterally General Eye ED: Negative for pale conjunctiva or scleral icterus Neck full ROM, no lymphadenopathy and supple General: Negative for tenderness Chest Wall inspection of chest normal and palpation of chest normal Chest: Negative for other Resp normal respiratory effort, no retractions and clear to auscultation bilaterally Effort and Inspection: Negative for pain with movement Auscultation: Negative for rales, rhonchi or wheezes Cardio regular rate, regular rhythm, S1 normal heart sound, S2 normal heart sound and no murmurs Rate: Negative for bradycardia or tachycardic Rhythm: Negative for abnormal rhythm Bruits: Negative for other GI non-tender, non-distended and no masses Inspection: Negative for abdominal distention Auscultation: normoactive bowel sounds Palpation: soft; Negative for guarding or rebound tenderness present Back/Spine no CVA tenderness General Back: Negative for CVA tenderness Cervical Spine: Negative for cervical spine tenderness Thoracic Spine / Upper Back: Negative for ROM limited Lumbar Spine / Lower Back: Negative for lumbar spinal tenderness Neuro oriented x3, CN's II-XII intact bilaterally, moves all extremities and no focal motor deficits [place] Coma Scale: document GCS findings Spontaneous Obeys Commands Oriented 15 Sensorium / Orientation: alert, oriented to person, oriented to place and oriented to time; Negative for orientation impaired, confused, lethargic or stuporous Motor Exam: strength 5/5 throughout Psych mental status grossly normal and thought process normal Appearance: Negative for unkempt Attitude: No agitated Mood & Affect: Negative for depressed, anxious or tearful Skin General Skin Exam: Negative for other Lesions: no lesions Rashes: no rashes Trauma: Negative for abrasion or laceration MDM MDM MDM Narrative Medical decision making narrative: 52-year-old fell complaining of right hip and knee pain x-rays being obtained. She also was recently hospitalized has had nausea and vomiting screening labs to be obtained. Zofran for nausea and morphine for pain. Repeat exam at 10:29 AM patient is doing well. We went over her labs and normal x-rays. Patient clinically looks well. I get the sense that she wants to be admitted to the hospital. I explained to her that there was no specific reason to admit her to the hospital and she would not qualify for admission at this time. She will be given additional IV Zofran. Repeat exam patient is doing well at 11 AM. She will be discharged home. Outpatient follow-up. History & Record Review Discussion w/independent historian: Patient Additional record(s) reviewed:: Prior inpatient record, Prior outpatient record, Prior ED visit and Prior labs Lab Data Attestation: I reviewed the patient's lab results. Lab results narrative: CBC shows white count 11.2. H&H 13 and 42. Platelets 214. Chemistries show gap of 8. Normal BUN 14 creatinine 0.8. Glucose 205. Labs: Laboratory Results - last 24 hr 06/19/23 09:55 WBC 11.2 H RBC 5.26 Hgb 13.6 Hct 42.7 MCV 81.2 MCH 25.9 L MCHC 31.9 L RDW Std Deviation 42.7 RDW Coeff of [place] 14.6 Plt Count 214 MPV 9.9 Immature Gran % (Auto) 0.500 Neut % (Auto) 86.3 H Lymph % (Auto) 8.1 L [place] % (Auto) 3.2 Eos % (Auto) 1.2 Baso % (Auto) 0.7 Absolute Neuts (auto) 9.7 H Absolute Lymphs (auto) 0.91 Nucleated RBC % 0 Sodium 137 Potassium 4.2 Chloride 102 Carbon Dioxide 27.0 Anion Gap 8 BUN 14 Creatinine 0.85 Estim Creat Clear Calc 83.12 Est GFR (MDRD) Af Amer 91 Est GFR (MDRD) Non-Af 75 BUN/Creatinine Ratio 16.5 Glucose 205 H Calcium 9.6 Radiography Diagnostic Testing: Clinical Impression(s) from Imaging Studies Hip/Pelvis X-Ray 06/19/23 09:43 IMPRESSION: Stable examination. No acute abnormality is seen. Electronically Signed: Ryan Tejeda MD at 10:32 EST , Knee X-Ray 06/19/23 09:43 IMPRESSION: No acute abnormality is seen. Electronically Signed: Ryan Tejeda MD at 10:30 EST , Right hip x-ray and pelvis, 3 views, interpreted by myself shows no acute abnormality. No fracture or dislocation. Right knee x-ray, 4 views, interpreted by myself shows no acute abnormality. No fracture. No dislocation. Old avulsion of the proximal accident of the patella but no acute injury. Discharge Plan Triage Chief Complaint: Fall ED Provider: Ananda Coyle Dx/Rx/DC Orders Clinical Impression: Chronic anticoagulation, History of diabetes mellitus, Vomiting, Fall, Contusion of hip, right, Abrasion of knee, right Instructions: ED Hip Contusion, ED Vomiting (Adult) Prescriptions: New ondansetron 4 mg tablet,disintegrating 4 mg PO Q8H PRN (Reason: nausea and vomiting) Qty: 7 0RF No Action calcium carbonate 500 mg calcium (1,250 mg) tablet 1 tablet PO DAILY pantoprazole 40 mg tablet,delayed release (DR/EC) 40 mg PO DAILY simethicone 125 mg capsule 125 mg PO TID-QID PRN (Reason: abdominal distention) cholecalciferol (vitamin D3) 25 mcg (1,000 unit) tablet 1,000 unit PO DAILY Patient Comments: TAKE 1 TABLET DAILY aspirin 81 mg Capsule 81 mg PO DAILY nicotine 21 mg/24 hr Patch 24 Hour 21 mg transdermal DAILY Qty: 30 0RF clopidogrel 75 mg Tablet 75 mg PO DAILY Qty: 30 0RF Patient Comments: patient stated pretty sure I still take that atorvastatin 80 mg tablet 80 mg PO DAILY Qty: 30 0RF escitalopram oxalate [Lexapro] 10 mg tablet 10 mg PO DAILY Qty: 30 0RF carvedilol 12.5 mg Tablet 12.5 mg PO BIDCM Qty: 60 0RF Entresto 24-26 mg Tablet 1 tab PO BID 30 Days Qty: 60 0RF furosemide 40 mg Tablet 40 mg PO BIDLX Qty: 60 0RF gabapentin 300 mg capsule 300 mg PO TID Qty: 90 0RF Rx Instructions: Take 300 mg tablet only twice a day for the first 3 days then you may continue through 100 mg 3 times a day for the remainder of the prescription spironolactone 50 mg Tablet 50 mg PO DAILY 30 Days Qty: 30 2RF Rx Instructions: Hold for hyperkalemia, serum potassium more than 5.0 insulin glargine [Lantus U-100 Insulin] 100 unit/mL solution 20 unit subcut BID Qty: 10 2RF Rx Instructions: Hold if glucose less than 130 mg/dl dapagliflozin propanediol [Farxiga] 10 mg tablet 10 mg PO DAILY Qty: 90 3RF Patient Comments: patient stated I know I am supposed to be taking this one but I never got a notification from the pharmacy to come pick it up [facility] [Primary [facility] Provider] - 1-2 Days if not improving Activity Restrictions/Additional Instructions: Plenty of fluids and rest. Slowly increase your diet as tolerated. Zofran as needed for nausea. You may swallow or let it dissolve under your tongue. Follow-up with your primary care provider if not improving or return if feeling worse or unable to keep fluids down. Tylenol for hip and knee pain. Follow-up if not improving. Disposition Disposition: Home, Self Care Capacity Legal Configuration Specialist Reflex Medical hold order details:: IF a medical hold is selected below, a suggested order for a MEDICAL HOLD will reflex upon signing the document. Next of kin: [place] law dictates a PRIORITY LIST for identifying legal decision-maker/legal next of kin in the following order (LNOK): 1st: The patient?s legal guardian, if any 2nd: The patient's spouse (if status is questionable, consult Risk Management) 3rd: The patient?s adult child(marcella) (majority, if multiple children) 4th: The patient?s parents 5th: The patient?s adult siblings (majority, if multiple children siblings)
[2023-06-19] MEDS: Ondansetron 4 MG/2 ML Vial IV ×2 (09:57→10:33)
[2023-06-19] MEDS: morphine 8 MG/ML Syringe 6 MG IV (09:57)
[2023-06-19] MEDS: 0.9% Normal Saline (1000mL) 1,000 ML 1000 ML IV (09:57)
[2023-06-19 09:59] VITALS: RESP 14
[2023-06-19 10:05] LABS: Absolute Lymphocyte Count 0.91 X10^3/uL (0.83-4.51); Absolute Neutrophil Count 9.7 X10^3/uL (2.0-7.7); Basophil# 0.08 X10^3/uL; Basophil% 0.7 % (0-1); Eosinophil# 0.14 X10^3/uL; Eosinophils% 1.2 % (0-5); Hematocrit 42.7 % (37-47); Hemoglobin 13.6 g/dL (12.0-15.0); Lymphocyte # 0.91 X10^3/ul (0.83-4.51); Lymphocyte % 8.1 % (19-41); Mean Corp Hgb Conc 31.9 g/dL (32-36); Mean Corpuscular Hgb 25.9 pg (27.0-32.0); Mean Corpuscular Volume 81.2 fL (81-99); Mean Platelet Vol. 9.9 fl (6.2-12.0); Monocyte# 0.36 X10^3/uL; Monocyte% 3.2 % (0-10); NRBC Flagged by Analyzer 0 % (0-5); Neutrophil # 9.68 X10^3/uL (2.7-7.7); Neutrophil % 86.3 % (47-70); Platelet Count 214 K/mm3 (150-450); RBC Distribution Width CV 14.6 % (11.6-14.6); RBC Distribution Width SD 42.7 fl (35.1-43.9); Red Blood Count 5.26 M/mm3 (4.2-5.4); White Blood Count 11.2 K/mm3 (4.4-11.0)
[2023-06-19 10:25] LABS: Anion Gap 8 (5-15); BUN 14 mg/dL (7-18); BUN/Creat Ratio 16.5 RATIO (10-20); Calcium,Total 9.6 mg/dL (8.5-10.1); Chloride 102 mmol/L (98-107); Creatinine, Serum 0.85 mg/dL (0.55-1.02); EST Glomerular Filtration Rate 75 mL/min (>60); Est Glom Filt Rate - Afr Amer 91 mL/min (>60); Estimated Creatinine Clearance 83.12 ml/min; Glucose 205 mg/dL (74-106); Potassium 4.2 mmol/L (3.5-5.1); Sodium Level 137 mmol/L (136-145)
== END 2023-06-19 11:42 | disposition home or self-care (01) ==
LOC: ED 10:37
PROVIDERS: Emergency Provider Emergency Medicine; Visit Provider Emergency Medicine
DX: S70.01XA Contusion of right hip, initial encounter (principal); I11.0 Hypertensive heart disease with heart failure; I50.9 Heart failure, unspecified; E11.9 Type 2 diabetes mellitus without complications; Z79.4 Long term (current) use of insulin; R11.0 Nausea; I25.10 Atherosclerotic heart disease of native coronary artery without angina pectoris; Z79.01 Long term (current) use of anticoagulants; Y93.89 Activity, other specified; Y92.008 Other place in unspecified non-institutional (private) residence as the place of occurrence of the external cause; E78.5 Hyperlipidemia, unspecified; I25.2 Old myocardial infarction; Z79.899 Other long term (current) drug therapy; Z79.82 Long term (current) use of aspirin; Z79.02 Long term (current) use of antithrombotics/antiplatelets; F32.A Depression, unspecified; K21.9 Gastro-esophageal reflux disease without esophagitis; Z90.49 Acquired absence of other specified parts of digestive tract; F17.290 Nicotine dependence, other tobacco product, uncomplicated; W18.30XA Fall on same level, unspecified, initial encounter; S80.211A Abrasion, right knee, initial encounter
CPT/HCPCS: 73502; 73564; 80048; 85025; 96361; 96374; 96375; 99283; J7030; A4216; J2405

== ENCOUNTER 2023-09-02 07:42 | Emergency (ER) | payer MEDICAID, SELFPAY ==
[2023-09-02 07:42] VITALS: BP 160/100; PULSE 94; RESP 18; TEMP 36.2; O2SAT 92; O2SAT 95; BMI 29.7
--- NOTE | 2023-09-02 07:48 | EKG12_ITS ---
Test Reason : FALL Blood Pressure : / mmHG Vent. Rate : 103 BPM Atrial Rate : 103 BPM P-R Int : 176 ms QRS Dur : 128 ms QT Int : 350 ms P-R-T Axes : 054 -37 104 degrees QTc Int : 458 ms Sinus tachycardia Left axis deviation Non-specific intra-ventricular conduction block T wave abnormality, consider lateral ischemia Nonspecific ST and T wave changes Abnormal ECG Confirmed by Emanuel Crawford ([id number]), publication editor FELICIA HOLCOMB ([id number]) on 09/04/2023 10:22:51 AM Referred By: Confirmed By:Emanuel Crawford
--- NOTE | 2023-09-02 07:51 | EDS_ITS ---
HPI History of Present Illness Chief Complaint: Fall Informant: patient and EMS Onset/Context/Timing Onset: Today Narrative Narrative: Patient presents after fall at home. She states she fell on wet bathroom floor landing on her right hip. She complains of severe pain to the right hip. She denies striking her head. She has a history of DVT and PE. When I asked her about blood thinners she states that she believes she is on something but cannot member the name. When I review her medication list including from the area pharmacies it appears that she is on aspirin and Plavix but do not see any other form of blood thinner. [facility] Medical History (Updated 09/02/23 @ 07:[address] Griselda Christina MD) Acute dyspnea Aftercare following surgery of the circulatory system Alcohol abuse Amputation toe CAD (coronary artery disease), [place] coronary artery CHF (congestive heart failure) Depression Diabetes type 2, uncontrolled DVT (deep venous thrombosis) Essential hypertension GERD (gastroesophageal reflux disease) Hx of fracture of humerus Hyperlipidemia Hypoxemia Ischemic cardiomyopathy Myocardial infarct Osteoporosis Pericardial effusion Psychiatric disorder Pulmonary embolism Rheumatoid arthritis Seizures Sleep apnea Smoker Substance abuse Toe amputee Home Medications cholecalciferol (vitamin D3) 25 mcg (1,000 unit) tablet 1,000 unit PO DAILY vitamin 07/25/22 [History Last Taken 02/01/23] calcium carbonate 500 mg calcium (1,250 mg) tablet 1 tablet PO DAILY supplement 08/09/22 [History Last Taken 02/01/23] aspirin 81 mg capsule 81 mg PO DAILY heart health 08/10/22 [History Last Taken 02/01/23] nicotine 21 mg/24 hr daily transdermal patch 21 mg transdermal DAILY stop smoking #30 ea 09/02/22 [Rx Last Taken 02/01/23] atorvastatin 80 mg tablet 80 mg PO DAILY cholesterol #30 tabs 02/03/23 [Rx Last Taken Unknown] clopidogrel 75 mg tablet 75 mg PO DAILY anti platelet #30 tabs 02/03/23 [Rx Last Taken Unknown] escitalopram oxalate 10 mg tablet (Lexapro) 10 mg PO DAILY mental health #30 tabs 02/03/23 [Rx Last Taken Unknown] dapagliflozin propanediol 10 mg tablet (Farxiga) 10 mg PO DAILY diabetes #90 tabs 03/26/23 [Rx Last Taken Unknown] pantoprazole 40 mg tablet,delayed release 40 mg PO DAILY reflux 04/18/23 [History Last Taken Unknown] simethicone 125 mg capsule 125 mg PO TID-QID PRN abdominal distention 04/18/23 [History Last Taken Unknown] carvedilol 12.5 mg tablet 12.5 mg PO BIDCM #60 tabs 05/07/23 [Rx Last Taken Unknown] furosemide 40 mg tablet 40 mg PO BIDLX #60 tabs 05/07/23 [Rx Last Taken Unknown] sacubitril 24 mg-valsartan 26 mg tablet (Entresto) 1 tab PO BID 30 days #60 tabs 05/07/23 [Rx Last Taken Unknown] gabapentin 300 mg capsule 300 mg PO TID #90 caps 05/22/23 [Rx Last Taken Unknown] insulin glargine 100 unit/mL subcutaneous solution (Lantus U-100 Insulin) 20 unit (0.2 mL) subcut BID diabetes #10 mL 06/16/23 [Rx Last Taken Unknown] spironolactone 50 mg tablet 50 mg PO DAILY 30 days #30 tabs 06/16/23 [Rx Last Taken Unknown] ondansetron 4 mg disintegrating tablet 4 mg PO Q8H PRN nausea and vomiting #7 tabs 06/19/23 [Rx Last Taken Unknown] Allergy/AdvReac Type Severity Reaction Status Date / Time latex Allergy Hives Verified 09/02/23 07:42 Family History Mother Thyroid disorder Diabetes Hypertension Grandmother Diabetes Uncle Diabetes Aunt Diabetes Other Heart disease Surgical History History of appendectomy History of cholecystectomy Social History household members: spouse and children housing: house Smoking Status: Current every day smoker tobacco type: cigarettes alcohol intake: never substance use type: marijuana what type of physical activity do you participate in: none do you feel safe at home: Yes ROS ROS ED Constitutional Constitutional ED: Denies chills or fever(s) Eyes Eyes: Denies discharge from eye(s) ENT ENT ED: Denies discharge from eye(s), rhinorrhea or sore throat Cardiovascular Cardiovascular: Denies chest pain or palpitations Respiratory/Chest Respiratory/Chest: Denies cough or dyspnea Gastrointestinal Gastrointestinal: Denies abdominal pain, nausea or vomiting Musculoskeletal Musculoskeletal: Reports extremity pain; Denies back pain Integumentary Denies Abrasions or rash Neurologic Neurologic: Denies headache(s) or weakness Psychiatric Psychiatric: Reports anxiety; Denies depression Allergic/Immunologic Allergic/Immunologic ED: Denies lip swelling or urticaria EXAM Physical Exam Const Vital Signs: 09/02/23 07:42 09/02/23 07:42 Temperature 97.1 F L Temperature Source Temporal Pulse Rate 94 Respiratory Rate 18 Respiratory Effort Normal Respiratory Depth Normal Respiratory Pattern Normal Blood Pressure 160/100 H Blood Pressure Mean 120 Pulse Ox 95 92 Oxygen Delivery Method Room Air Nasal Cannula Oxygen Flow Rate (L/min) 2 Positive well nourished and well developed General Appearance ED: well developed HEENT atraumatic Eyes EOMs intact bilaterally Chest Wall inspection of chest normal and palpation of chest normal Resp normal respiratory effort and clear to auscultation bilaterally Cardio regular rhythm Rate: regular rate GI non-tender Palpation: soft Extremity Extremity Narrative: Legs are held flexed at the hips. Patient clinical severe pain with palpation of the right hip. Normal cap refill distally. Neuro oriented x3 Psych Mood & Affect: anxious and tearful MDM MDM MDM Narrative Medical decision making narrative: Patient was on manager monitoring. IV line established. Patient given morphine and Zofran for pain control. EKG obtained to evaluate for cardiac arrhythmia/ischemia. Labwork obtained to evaluate for leukocytosis, anemia, and electrolyte derangement. X-ray of both the chest as well as the hip and right pelvis obtained to evaluate for fracture, dislocation. History & Record Review Discussion w/independent historian: Patient Lab Data Attestation: I reviewed the patient's lab results. Labs: Laboratory Results - last 24 hr 09/02/23 07:54 WBC 9.5 RBC 5.57 H Hgb 14.4 Hct 44.5 MCV 79.9 L MCH 25.9 L MCHC 32.4 RDW Std Deviation 39.7 RDW Coeff of [place] 13.7 Plt Count 191 MPV 9.3 Immature Gran % (Auto) 2.200 H Neut % (Auto) 69.1 Lymph % (Auto) 18.9 L Darke % (Auto) 5.2 Eos % (Auto) 3.9 Baso % (Auto) 0.7 Absolute Neuts (auto) 6.5 Absolute Lymphs (auto) 1.79 Nucleated RBC % 0 PT 11.8 INR 0.9 APTT 25.5 Sodium 136 Potassium 3.3 L Chloride 102 Carbon Dioxide 28.0 Anion Gap 6 BUN 5 L Creatinine 0.76 Estim Creat Clear Calc 97.60 Est GFR (MDRD) Af Amer 102 Est GFR (MDRD) Non-Af 85 BUN/Creatinine Ratio 6.6 L Glucose 306 H Calcium 9.1 EKG Initial EKG: Attestation: I personally reviewed and interpreted this EKG as follows: Interpretation: Sinus Tachycardia (Sinus tachycardia at 103. No acute ischemia.) Treatment and Re-Evaluation Narrative: CBC was a white count 9.5 with a hemoglobin of 14.4. No left shift. Coags are unremarkable. Chemistry studies significant for slightly low potassium at 3.3. Glucose is 306. Portable chest x-ray per my interpretation reveals mild edema. Pelvis and right hip x-ray per my interpretation reveals a right femoral neck fracture with a fracture of the greater trochanter. Patient has been given analgesics. We do not have anyone on-call for [facility] emergency department orthopedics today. Patient has been seen by [facility] in the past, but was only seen by the PA who is no longer with the practice. We are advised by profile saw setup operator that [facility] doctors will only take call for those that have seen him cells. Patient admits that she did not see one of the physicians, only the physicians assistant brand manager. In light of this she will require transfer for appropriate care of her hip fracture. [place] catheter will be placed and she will be given IV Lasix. She does have a history of CHF and admits that she has not been compliant with her Lasix because of urinary frequency. She also tells me that she is supposed to be on Eliquis, but only takes it irregularly because she feels that it makes her nauseated. Discharge Plan Triage Chief Complaint: Fall ED Provider: Griselda Christina Dx/Rx/DC Orders Prescriptions: No Action calcium carbonate 500 mg calcium (1,250 mg) tablet 1 tablet PO DAILY pantoprazole 40 mg tablet,delayed release (DR/EC) 40 mg PO DAILY simethicone 125 mg capsule 125 mg PO TID-QID PRN (Reason: abdominal distention) cholecalciferol (vitamin D3) 25 mcg (1,000 unit) tablet 1,000 unit PO DAILY Patient Comments: TAKE 1 TABLET DAILY aspirin 81 mg Capsule 81 mg PO DAILY nicotine 21 mg/24 hr Patch 24 Hour 21 mg transdermal DAILY Qty: 30 0RF clopidogrel 75 mg Tablet 75 mg PO DAILY Qty: 30 0RF Patient Comments: patient stated pretty sure I still take that atorvastatin 80 mg tablet 80 mg PO DAILY Qty: 30 0RF escitalopram oxalate [Lexapro] 10 mg tablet 10 mg PO DAILY Qty: 30 0RF carvedilol 12.5 mg Tablet 12.5 mg PO BIDCM Qty: 60 0RF Entresto 24-26 mg Tablet 1 tab PO BID 30 Days Qty: 60 0RF furosemide 40 mg Tablet 40 mg PO BIDLX Qty: 60 0RF gabapentin 300 mg capsule 300 mg PO TID Qty: 90 0RF Rx Instructions: Take 300 mg tablet only twice a day for the first 3 days then you may continue through 100 mg 3 times a day for the remainder of the prescription spironolactone 50 mg Tablet 50 mg PO DAILY 30 Days Qty: 30 2RF Rx Instructions: Hold for hyperkalemia, serum potassium more than 5.0 insulin glargine [Lantus U-100 Insulin] 100 unit/mL solution 20 unit subcut BID Qty: 10 2RF Rx Instructions: Hold if glucose less than 130 mg/dl ondansetron 4 mg tablet,disintegrating 4 mg PO Q8H PRN (Reason: nausea and vomiting) Qty: 7 0RF dapagliflozin propanediol [Farxiga] 10 mg tablet 10 mg PO DAILY Qty: 90 3RF Patient Comments: patient stated I know I am supposed to be taking this one but I never got a notification from the pharmacy to come pick it up [facility] [place] Referrals: [facility] [place] [Primary Care Provider] -
[2023-09-02] MEDS: Morphine 4 MG/ML Syringe IV ×2 (07:55→08:42)
[2023-09-02] MEDS: Ondansetron 4 MG/2 ML Vial IV (07:56)
[2023-09-02 08:06] LABS: Absolute Lymphocyte Count 1.79 X10^3/uL (0.83-4.51); Absolute Neutrophil Count 6.5 X10^3/uL (2.0-7.7); Basophil# 0.07 X10^3/uL; Basophil% 0.7 % (0-1); Eosinophil# 0.37 X10^3/uL; Eosinophils% 3.9 % (0-5); Hematocrit 44.5 % (37-47); Hemoglobin 14.4 g/dL (12.0-15.0); Lymphocyte # 1.79 X10^3/ul (0.83-4.51); Lymphocyte % 18.9 % (19-41); Mean Corp Hgb Conc 32.4 g/dL (32-36); Mean Corpuscular Hgb 25.9 pg (27.0-32.0); Mean Corpuscular Volume 79.9 fL (81-99); Mean Platelet Vol. 9.3 fl (6.2-12.0); Monocyte# 0.49 X10^3/uL; Monocyte% 5.2 % (0-10); NRBC Flagged by Analyzer 0 % (0-5); Neutrophil # 6.54 X10^3/uL (2.7-7.7); Neutrophil % 69.1 % (47-70); Platelet Count 191 K/mm3 (150-450); RBC Distribution Width CV 13.7 % (11.6-14.6); RBC Distribution Width SD 39.7 fl (35.1-43.9); Red Blood Count 5.57 M/mm3 (4.2-5.4); White Blood Count 9.5 K/mm3 (4.4-11.0)
--- NOTE | 2023-09-02 08:14 | RAD_ITS ---
STUDY: X-RAY - PELVIS AND RIGHT HIP REASON FOR EXAM: Female, 53 years old. fall TECHNIQUE: 3 views of the pelvis and hip. COMPARISON: Pelvic x-ray dated June 19, 2023 FINDINGS: There is an acute comminuted fracture of the intertrochanteric region of the right femur with mild displacement and impaction of the major fracture fragments. No additional acute fractures are present. Redemonstration of an right common femoral vascular stent. The right hip joint space is preserved. The left hip joint is moderately narrowed axially. There is a non-specific bowel gas pattern. Normal visualized soft tissue structures. Normal bilateral iliac wings, sacroiliac joints and visualized sacrum. Normal bilateral superior and inferior pubic rami. Normal pubic symphysis. Normal bilateral ischial tuberosities. RAD/HIP, UNI W/ Pelvis 2-3 Views IMPRESSION: 1. Acute comminuted fracture of the intertrochanteric region of the right femur. Electronically Signed: Fernandez Mcdaniel MD at 8:46 EDT ,
--- NOTE | 2023-09-02 08:14 | RAD_ITS ---
STUDY: X-RAY CHEST REASON FOR EXAM: Female, 53 years old. sob TECHNIQUE: Single AP portable view of the chest. COMPARISON: May 26, 2023 FINDINGS: No visualized consolidation. Diffuse interstitial thickening redemonstrated in both lungs similar to what was present on the prior study with mild interstitial edema. There is no demonstrated pleural abnormality. The heart is moderately enlarged, increased from what was seen on the prior study. Normal mediastinum and edmundo. There is prominence of the pulmonary hilar arteries and peripheral pulmonary arteries, consistent with congestive heart failure (CHF). There is atherosclerotic calcification of the aortic arch with tortuosity. There are diffuse degenerative changes of the visualized thoracic spine. There is degenerative osteoarthritis of the bilateral shoulders. There is no demonstrated abnormality of the visualized soft tissue structures of the upper abdomen. RAD/Chest 1 View (Portable) IMPRESSION: 1. Chronic CHF Electronically Signed: Fernandez Mcdaniel MD at 8:48 EDT ,
[2023-09-02 08:15] LABS: Anion Gap 6 (5-15); BUN 5 mg/dL (7-18); BUN/Creat Ratio 6.6 RATIO (10-20); Calcium,Total 9.1 mg/dL (8.5-10.1); Chloride 102 mmol/L (98-107); Creatinine, Serum 0.76 mg/dL (0.55-1.02); EST Glomerular Filtration Rate 85 mL/min (>60); Est Glom Filt Rate - Afr Amer 102 mL/min (>60); Glucose 306 mg/dL (74-106); Potassium 3.3 mmol/L (3.5-5.1); Sodium Level 136 mmol/L (136-145)
[2023-09-02 08:24] LABS: International Normalized Ratio 0.9; Prothrombin Time (Protime)PT. 11.8 SECONDS (11.7-14.9)
[2023-09-02 08:25] LABS: Partial Thromboplast Time 25.5 Seconds (24.1-36.2)
[2023-09-02] MEDS: Furosemide 40 MG/4 ML Vial IV (08:42)
[2023-09-02 09:42] VITALS: BP 148/76; PULSE 101; RESP 16; TEMP 36.4; O2SAT 95
[2023-09-02] MEDS: HYDROmorphone 0.5 MG/0.5 ML SYRINGE IV (09:55)
== END 2023-09-02 09:59 | disposition short-term general hospital (02) ==
LOC: ED 07:59
PROVIDERS: Emergency Provider Emergency Medicine; Visit Provider Emergency Medicine
DX: S72.141A Displaced intertrochanteric fracture of right femur, initial encounter for closed fracture (principal); I11.0 Hypertensive heart disease with heart failure; I50.9 Heart failure, unspecified; E11.9 Type 2 diabetes mellitus without complications; Z79.4 Long term (current) use of insulin; W01.10XA Fall on same level from slipping, tripping and stumbling with subsequent striking against unspecified object, initial encounter; Y92.89 Other specified places as the place of occurrence of the external cause; I25.10 Atherosclerotic heart disease of native coronary artery without angina pectoris; E78.5 Hyperlipidemia, unspecified; I25.2 Old myocardial infarction; Z79.82 Long term (current) use of aspirin; Z79.02 Long term (current) use of antithrombotics/antiplatelets; Z79.899 Other long term (current) drug therapy; F32.A Depression, unspecified; K21.9 Gastro-esophageal reflux disease without esophagitis; Z90.49 Acquired absence of other specified parts of digestive tract; F17.210 Nicotine dependence, cigarettes, uncomplicated
CPT/HCPCS: 51702; 71045; 73502; 80048; 85025; 85610; 85730; 93005; 96374; 96375; 96376; 99285; J1940; J2405

== ENCOUNTER → 2023-09-10 | Outpatient (REF) | payer MEDICAID, SELFPAY ==
[2023-09-10 09:02] LABS: Absolute Lymphocyte Count 1.61 X10^3/uL (0.83-4.51); Basophil# 0.05 X10^3/uL; Basophil% 0.8 % (0-1); Eosinophil# 0.05 X10^3/uL; Eosinophils% 0.8 % (0-5); Hematocrit 36.6 % (37-47); Hemoglobin 11.6 g/dL (12.0-15.0); Lymphocyte # 1.61 X10^3/ul (0.83-4.51); Mean Corp Hgb Conc 31.7 g/dL (32-36); Mean Corpuscular Hgb 26.1 pg (27.0-32.0); Mean Corpuscular Volume 82.4 fL (81-99); Mean Platelet Vol. 9.8 fl (6.2-12.0); Monocyte# 0.68 X10^3/uL; Monocyte% 10.6 % (0-10); NRBC Flagged by Analyzer 0 % (0-5); Neutrophil # 4.02 X10^3/uL (2.7-7.7); Neutrophil % 62.3 % (47-70); Platelet Count 262 K/mm3 (150-450); RBC Distribution Width CV 14.3 % (11.6-14.6); RBC Distribution Width SD 42.5 fl (35.1-43.9); Red Blood Count 4.44 M/mm3 (4.2-5.4); White Blood Count 6.4 K/mm3 (4.4-11.0)
[2023-09-10 09:15] LABS: Vitamin B12 300 pg/mL (211-911); Vitamin D,25 Hydroxy 18.5 ng/mL
[2023-09-10 10:02] LABS: Anion Gap 9 (5-15); BUN 17 mg/dL (7-18); BUN/Creat Ratio 20.4 RATIO (10-20); Calcium,Total 8.7 mg/dL (8.5-10.1); Chloride 97 mmol/L (98-107); Cholesterol 140 mg/dL (200); Creatinine, Serum 0.83 mg/dL (0.55-1.02); EST Glomerular Filtration Rate 76 mL/min (>60); Est Glom Filt Rate - Afr Amer 92 mL/min (>60); Glucose 150 mg/dL (74-106); High Density Lipoprotein 31 mg/dL; Magnesium 1.8 mg/dL (1.6-2.6); Potassium 3.7 mmol/L (3.5-5.1); Sodium Level 137 mmol/L (136-145); Triglycerides 227 mg/dL; Very Low Density Lipoprotein 45 mg/dL (5-40)
[2023-09-10 11:18] LABS: Hemoglobin A1c 10.8 % (3.8-5.6)
== END | disposition home or self-care (01) ==
LOC: OLS.SW 05:00
PROVIDERS: Visit Provider Internal Medicine
DX: E11.9 Type 2 diabetes mellitus without complications (principal)
CPT/HCPCS: 36415; 80048; 80061; 82306; 82607; 83036; 83735; 84443; 85025

== ENCOUNTER → 2023-09-17 | Outpatient (REF) | payer MEDICAID, SELFPAY ==
[2023-09-17 09:12] LABS: Absolute Lymphocyte Count 1.47 X10^3/uL (0.83-4.51); Absolute Neutrophil Count 8.5 X10^3/uL (2.0-7.7); Basophil% 0.9 % (0-1); Eosinophil# 0.14 X10^3/uL; Eosinophils% 1.3 % (0-5); Hematocrit 42.9 % (37-47); Hemoglobin 12.8 g/dL (12.0-15.0); Lymphocyte # 1.47 X10^3/ul (0.83-4.51); Lymphocyte % 13.5 % (19-41); Mean Corp Hgb Conc 29.8 g/dL (32-36); Mean Corpuscular Hgb 25.7 pg (27.0-32.0); Mean Platelet Vol. 9.6 fl (6.2-12.0); Monocyte# 0.62 X10^3/uL; Monocyte% 5.7 % (0-10); NRBC Flagged by Analyzer 0 % (0-5); Neutrophil # 8.47 X10^3/uL (2.7-7.7); Platelet Count 399 K/mm3 (150-450); RBC Distribution Width CV 15.2 % (11.6-14.6); RBC Distribution Width SD 46.5 fl (35.1-43.9); Red Blood Count 4.99 M/mm3 (4.2-5.4); White Blood Count 10.9 K/mm3 (4.4-11.0)
[2023-09-17 09:46] LABS: Anion Gap 2 (5-15); BUN 32 mg/dL (7-18); BUN/Creat Ratio 26.9 RATIO (10-20); Calcium,Total 9.2 mg/dL (8.5-10.1); Chloride 96 mmol/L (98-107); Creatinine, Serum 1.19 mg/dL (0.55-1.02); EST Glomerular Filtration Rate 51 mL/min (>60); Est Glom Filt Rate - Afr Amer 61 mL/min (>60); Glucose 134 mg/dL (74-106); Magnesium 2.9 mg/dL (1.6-2.6); Potassium 4.5 mmol/L (3.5-5.1); Sodium Level 133 mmol/L (136-145)
== END | disposition home or self-care (01) ==
LOC: OLS.SW 04:00
PROVIDERS: Referring Provider Internal Medicine; Visit Provider Internal Medicine
DX: E11.9 Type 2 diabetes mellitus without complications (principal); I10 Essential (primary) hypertension
CPT/HCPCS: 36415; 80048; 83735; 85025

== ENCOUNTER → 2023-09-24 | Outpatient (REF) | payer MEDICAID, SELFPAY ==
[2023-09-24 09:27] LABS: Absolute Lymphocyte Count 1.63 X10^3/uL (0.83-4.51); Absolute Neutrophil Count 5.1 X10^3/uL (2.0-7.7); Basophil# 0.08 X10^3/uL; Eosinophil# 0.16 X10^3/uL; Eosinophils% 2.1 % (0-5); Hematocrit 37.7 % (37-47); Hemoglobin 11.8 g/dL (12.0-15.0); Lymphocyte # 1.63 X10^3/ul (0.83-4.51); Lymphocyte % 21.3 % (19-41); Mean Corp Hgb Conc 31.3 g/dL (32-36); Mean Corpuscular Hgb 26.4 pg (27.0-32.0); Mean Corpuscular Volume 84.3 fL (81-99); Mean Platelet Vol. 9.4 fl (6.2-12.0); Monocyte# 0.71 X10^3/uL; Monocyte% 9.3 % (0-10); NRBC Flagged by Analyzer 0 % (0-5); Neutrophil # 5.06 X10^3/uL (2.7-7.7); Neutrophil % 65.9 % (47-70); Platelet Count 316 K/mm3 (150-450); RBC Distribution Width CV 15.5 % (11.6-14.6); RBC Distribution Width SD 46.9 fl (35.1-43.9); Red Blood Count 4.47 M/mm3 (4.2-5.4); White Blood Count 7.7 K/mm3 (4.4-11.0)
[2023-09-24 10:19] LABS: Anion Gap 6 (5-15); BUN 36 mg/dL (7-18); BUN/Creat Ratio 38.8 RATIO (10-20); Calcium,Total 8.8 mg/dL (8.5-10.1); Chloride 99 mmol/L (98-107); Creatinine, Serum 0.93 mg/dL (0.55-1.02); EST Glomerular Filtration Rate 67 mL/min (>60); Est Glom Filt Rate - Afr Amer 82 mL/min (>60); Glucose 166 mg/dL (74-106); Magnesium 2.8 mg/dL (1.6-2.6); Potassium 4.8 mmol/L (3.5-5.1); Sodium Level 134 mmol/L (136-145); Thyroid Stim Hormone (TSH) 6.61 uIU/mL (0.358-3.74)
== END | disposition home or self-care (01) ==
LOC: OLS.SW 05:00
PROVIDERS: Visit Provider Internal Medicine
DX: I11.0 Hypertensive heart disease with heart failure (principal); I50.9 Heart failure, unspecified; E11.9 Type 2 diabetes mellitus without complications; E78.5 Hyperlipidemia, unspecified; S72.141D Displaced intertrochanteric fracture of right femur, subsequent encounter for closed fracture with routine healing; I25.10 Atherosclerotic heart disease of native coronary artery without angina pectoris; I42.9 Cardiomyopathy, unspecified
CPT/HCPCS: 36415; 80048; 83735; 84443; 85025

== ENCOUNTER → 2023-09-29 | Outpatient (REF) | payer MEDICAID, SELFPAY ==
[2023-09-29 08:48] LABS: Vancomycin, Trough Level 17.3 ug/mL (5.0-15.0)
== END | disposition home or self-care (01) ==
LOC: OLS.SW 08:03
PROVIDERS: Visit Provider Internal Medicine
DX: E11.9 Type 2 diabetes mellitus without complications (principal); E78.5 Hyperlipidemia, unspecified
CPT/HCPCS: 80202

== ENCOUNTER → 2023-10-01 | Outpatient (REF) | payer MEDICAID, SELFPAY ==
[2023-10-01 08:51] LABS: Absolute Lymphocyte Count 1.59 X10^3/uL (0.83-4.51); Absolute Neutrophil Count 4.1 X10^3/uL (2.0-7.7); Basophil# 0.07 X10^3/uL; Basophil% 1.1 % (0-1); Eosinophil# 0.17 X10^3/uL; Eosinophils% 2.6 % (0-5); Hematocrit 37.8 % (37-47); Hemoglobin 11.7 g/dL (12.0-15.0); Lymphocyte # 1.59 X10^3/ul (0.83-4.51); Lymphocyte % 24.4 % (19-41); Mean Corpuscular Hgb 26.7 pg (27.0-32.0); Mean Corpuscular Volume 86.3 fL (81-99); Mean Platelet Vol. 9.1 fl (6.2-12.0); Monocyte# 0.57 X10^3/uL; Monocyte% 8.8 % (0-10); NRBC Flagged by Analyzer 0 % (0-5); Neutrophil # 4.08 X10^3/uL (2.7-7.7); Neutrophil % 62.6 % (47-70); Platelet Count 218 K/mm3 (150-450); RBC Distribution Width CV 15.9 % (11.6-14.6); RBC Distribution Width SD 50.4 fl (35.1-43.9); Red Blood Count 4.38 M/mm3 (4.2-5.4); White Blood Count 6.5 K/mm3 (4.4-11.0)
[2023-10-01 09:23] LABS: Anion Gap 3 (5-15); BUN 22 mg/dL (7-18); BUN/Creat Ratio 24.1 RATIO (10-20); Chloride 108 mmol/L (98-107); Creatinine, Serum 0.91 mg/dL (0.55-1.02); EST Glomerular Filtration Rate 69 mL/min (>60); Est Glom Filt Rate - Afr Amer 83 mL/min (>60); Glucose 123 mg/dL (74-106); Magnesium 2.6 mg/dL (1.6-2.6); Potassium 5.4 mmol/L (3.5-5.1); Sodium Level 138 mmol/L (136-145)
[2023-10-01 09:28] LABS: Vancomycin, Trough Level 24.8 ug/mL (5.0-15.0)
== END | disposition home or self-care (01) ==
LOC: OLS.SW 05:00
PROVIDERS: Visit Provider Internal Medicine
DX: I11.0 Hypertensive heart disease with heart failure (principal); I50.9 Heart failure, unspecified; E78.5 Hyperlipidemia, unspecified; E11.9 Type 2 diabetes mellitus without complications; I25.10 Atherosclerotic heart disease of native coronary artery without angina pectoris; I42.9 Cardiomyopathy, unspecified; F41.9 Anxiety disorder, unspecified; S72.141D Displaced intertrochanteric fracture of right femur, subsequent encounter for closed fracture with routine healing
CPT/HCPCS: 36415; 80048; 80202; 83735; 85025; 86140

== ENCOUNTER → 2023-10-08 | Outpatient (REF) | payer MEDICAID, SELFPAY ==
[2023-10-08 09:20] LABS: Absolute Lymphocyte Count 1.68 X10^3/uL (0.83-4.51); Absolute Neutrophil Count 6.2 X10^3/uL (2.0-7.7); Basophil# 0.06 X10^3/uL; Basophil% 0.7 % (0-1); Eosinophil# 0.12 X10^3/uL; Eosinophils% 1.4 % (0-5); Hematocrit 39.6 % (37-47); Hemoglobin 12.1 g/dL (12.0-15.0); Lymphocyte # 1.68 X10^3/ul (0.83-4.51); Lymphocyte % 19.2 % (19-41); Mean Corp Hgb Conc 30.6 g/dL (32-36); Mean Corpuscular Hgb 26.5 pg (27.0-32.0); Mean Corpuscular Volume 86.7 fL (81-99); Mean Platelet Vol. 9.3 fl (6.2-12.0); Monocyte# 0.68 X10^3/uL; Monocyte% 7.8 % (0-10); NRBC Flagged by Analyzer 0 % (0-5); Neutrophil # 6.17 X10^3/uL (2.7-7.7); Neutrophil % 70.6 % (47-70); Platelet Count 243 K/mm3 (150-450); RBC Distribution Width CV 16.6 % (11.6-14.6); RBC Distribution Width SD 52.3 fl (35.1-43.9); Red Blood Count 4.57 M/mm3 (4.2-5.4); White Blood Count 8.7 K/mm3 (4.4-11.0)
[2023-10-08 10:13] LABS: Anion Gap 4 (5-15); BUN 21 mg/dL (7-18); BUN/Creat Ratio 27.6 RATIO (10-20); Calcium,Total 9.3 mg/dL (8.5-10.1); Chloride 108 mmol/L (98-107); Creatinine, Serum 0.76 mg/dL (0.55-1.02); EST Glomerular Filtration Rate 85 mL/min (>60); Est Glom Filt Rate - Afr Amer 102 mL/min (>60); Glucose 67 mg/dL (74-106); Magnesium 2.5 mg/dL (1.6-2.6); Potassium 5.6 mmol/L (3.5-5.1); Sodium Level 139 mmol/L (136-145)
== END | disposition home or self-care (01) ==
LOC: OLS.SW 05:00
PROVIDERS: Visit Provider Internal Medicine
DX: E11.9 Type 2 diabetes mellitus without complications (principal); E78.5 Hyperlipidemia, unspecified; I50.22 Chronic systolic (congestive) heart failure
CPT/HCPCS: 36415; 80048; 83735; 85025

== ENCOUNTER → 2023-10-12 | Outpatient (REF) | payer MEDICAID, SELFPAY ==
[2023-10-12 08:28] LABS: Anion Gap 3 (5-15); BUN 24 mg/dL (7-18); BUN/Creat Ratio 34.1 RATIO (10-20); Calcium,Total 8.7 mg/dL (8.5-10.1); Chloride 104 mmol/L (98-107); EST Glomerular Filtration Rate 93 mL/min (>60); Est Glom Filt Rate - Afr Amer 112 mL/min (>60); Glucose 112 mg/dL (74-106); Potassium 4.5 mmol/L (3.5-5.1); Sodium Level 138 mmol/L (136-145)
== END | disposition home or self-care (01) ==
LOC: OLS.SW 05:00
PROVIDERS: Visit Provider Internal Medicine
DX: I11.0 Hypertensive heart disease with heart failure (principal); I50.9 Heart failure, unspecified; E78.5 Hyperlipidemia, unspecified; E11.9 Type 2 diabetes mellitus without complications; F41.9 Anxiety disorder, unspecified; I25.10 Atherosclerotic heart disease of native coronary artery without angina pectoris; I42.9 Cardiomyopathy, unspecified; S72.141D Displaced intertrochanteric fracture of right femur, subsequent encounter for closed fracture with routine healing
CPT/HCPCS: 36415; 80048

== ENCOUNTER 2023-10-15 15:35 | Emergency (ER) | payer MEDICAID, SELFPAY ==
[2023-10-15 15:35] VITALS: BP 97/65; PULSE 81; RESP 16; TEMP 36.3; O2SAT 99
--- NOTE | 2023-10-15 15:43 | RAD_ITS ---
INDICATION: PAIN EXAMINATION/TECHNIQUE: X-RAY - XR Hip Unilateral with Pelvis when performed; 3 Views COMPARISON: X-ray dated 09/02/2023 FINDINGS: There has been interval placement of a right-sided hip screw spanning a previously seen comminuted intertrochanteric fracture of the right femur. There is residual fracture lucency remaining. No definite new fracture is identified. Alignment is satisfactory. RAD/HIP, UNI W/ Pelvis 2-3 Views IMPRESSION: Interval placement of a right-sided hip screw spanning a previously seen comminuted intertrochanteric fracture of the right femur. Residual fracture lucency remain. No definite new fracture is identified. Alignment is satisfactory. Electronically Signed: Sha Nicholson MD at 16:12 EDT ,
--- NOTE | 2023-10-15 16:46 | EDS_ITS ---
HPI History of Present Illness Chief Complaint: Lower Extremity Injury Narrative Narrative: 53-year-old female past medical history of right hip arthroplasty status post fracture at the end of September around [facility]. She states that she was trying to go to the bathroom, but did not make it and had fallen. She sustained a fracture of her right hip. She states that she was sent to [place] for surgery. She is now to jail facility locally for rehabilitation. She takes oxycodone and a muscle relaxer. She denies any recent falls but states she is continuing to have right hip pain. She also states that she has history of a surgical wound infection for which she was on antibiotics for 7 days intravenously. She states that jail facility wants her wound evaluated as well. [facility] Medical History Acute dyspnea Aftercare following surgery of the circulatory system Alcohol abuse Amputation toe CAD (coronary artery disease), [place] coronary artery CHF (congestive heart failure) Depression Diabetes type 2, uncontrolled DVT (deep venous thrombosis) Essential hypertension GERD (gastroesophageal reflux disease) Hx of fracture of humerus Hyperlipidemia Hypoxemia Ischemic cardiomyopathy Myocardial infarct Osteoporosis Pericardial effusion Psychiatric disorder Pulmonary embolism Rheumatoid arthritis Seizures Sleep apnea Smoker Substance abuse Toe amputee Home Medications cholecalciferol (vitamin D3) 25 mcg (1,000 unit) tablet 1,000 unit PO DAILY vitamin 07/25/22 [History Last Taken 02/01/23] calcium carbonate 1 tablet PO DAILY supplement 08/09/22 [History Last Taken 02/01/23] aspirin 81 mg capsule 81 mg PO DAILY heart health 08/10/22 [History Last Taken 02/01/23] nicotine 21 mg/24 hr daily transdermal patch 21 mg transdermal DAILY stop smoking #30 ea 09/02/22 [Rx Last Taken 02/01/23] atorvastatin 80 mg tablet 80 mg PO DAILY cholesterol #30 tabs 02/03/23 [Rx Last Taken Unknown] clopidogrel 75 mg tablet 75 mg PO DAILY anti platelet #30 tabs 02/03/23 [Rx Last Taken Unknown] escitalopram oxalate 10 mg tablet (Lexapro) 10 mg PO DAILY mental health #30 tabs 02/03/23 [Rx Last Taken Unknown] dapagliflozin propanediol 10 mg tablet (Farxiga) 10 mg PO DAILY diabetes #90 tabs 03/26/23 [Rx Last Taken Unknown] pantoprazole 40 mg tablet,delayed release 40 mg PO DAILY reflux 04/18/23 [History Last Taken Unknown] simethicone 125 mg capsule 125 mg PO TID-QID PRN abdominal distention 04/18/23 [History Last Taken Unknown] carvedilol 12.5 mg tablet 12.5 mg PO BIDCM #60 tabs 05/07/23 [Rx Last Taken Unknown] furosemide 40 mg tablet 40 mg PO BIDLX #60 tabs 05/07/23 [Rx Last Taken Unknown] sacubitril 24 mg-valsartan 26 mg tablet (Entresto) 1 tab PO BID 30 days #60 tabs 05/07/23 [Rx Last Taken Unknown] gabapentin 300 mg capsule 300 mg PO TID #90 caps 05/22/23 [Rx Last Taken Unknown] insulin glargine 100 unit/mL subcutaneous solution (Lantus U-100 Insulin) 20 unit (0.2 mL) subcut BID diabetes #10 mL 06/16/23 [Rx Last Taken Unknown] spironolactone 50 mg tablet 50 mg PO DAILY 30 days #30 tabs 06/16/23 [Rx Last Taken Unknown] ondansetron 4 mg disintegrating tablet 4 mg PO Q8H PRN nausea and vomiting #7 tabs 06/19/23 [Rx Last Taken Unknown] Allergy/AdvReac Type Severity Reaction Status Date / Time latex Allergy Hives Verified 10/15/23 15:37 Family History Mother Thyroid disorder Diabetes Hypertension Grandmother Diabetes Uncle Diabetes Aunt Diabetes Other Heart disease Surgical History History of appendectomy History of cholecystectomy Social History household members: spouse and children housing: house Smoking Status: Current every day smoker tobacco type: cigarettes alcohol intake: never substance use type: marijuana what type of physical activity do you participate in: none do you feel safe at home: Yes ROS ROS ED ROS Narrative Constitutional: No fever, no chills. HEENT: No sore throat. No neck pain. No loss of vision. No rhinorrhea. Cardiovascular: No chest pain. No palpitations. No pedal edema. Respiratory: No cough, no shortness of breath. Abdominal: No abdominal pain. No nausea. No vomiting. Genitourinary: No dysuria. No hematuria. Musculoskeletal: No myalgias. Positive right hip pain/arthralgias. Neurologic: No headaches. No dizziness. No lightheadedness. Skin: No rash. No change in color. Psychiatric: No depression. No anxiety. EXAM Physical Exam Narrative Exam Narrative: Afebrile. Vital signs noted. Well-healed surgical incisions right hip without fluctuance or surrounding erythema. Minimal discoloration around wound. Neurovascular intact distally. Regular rate and rhythm. Lungs clear to auscultation bilaterally. Abdomen soft nontender with normal active bowel sounds. Const Vital Signs: 10/15/23 15:35 10/15/23 17:28 Temperature 97.4 F L 97.2 F L Temperature Source Temporal Pulse Rate 81 87 Respiratory Rate 16 17 Blood Pressure 97/65 131/75 H Blood Pressure Mean 75 93 Pulse Ox 99 98 Oxygen Delivery Method Room Air MDM MDM MDM Narrative Medical decision making narrative: I do not feel that she has a wound infection that requires workup or laboratory work, I have low concern for infection. She is not febrile, nor is she tachycardic. She was requesting more pain medication for pain. I do not feel she needs an intramuscular injection. I do feel that she probably has chronic pain. She was given an additional dose of oxycodone 5 mg orally. RN ordered right hip x-ray per protocol were interpreted by myself independently, and I see no evidence of a dislocation, I do see the previous fracture of her right hip but there is normal alignment. I reviewed the radiology report which comments on the interval placement of a right-sided hip screw spanning the previously seen comminuted intertrochanteric fracture of the right femur. Residual fracture lucency remains. No new fracture identified. At this point in time, I feel she can be discharged back to the jail facility. She will continue her oxycodone and muscle relaxer. She will continue her rehabilitation of her right hip. Disposition is discharged to jail facility in stable condition. Radiography Diagnostic Testing: Clinical Impression(s) from Imaging Studies Hip/Pelvis X-Ray 10/15/23 15:43 IMPRESSION: Interval placement of a right-sided hip screw spanning a previously seen comminuted intertrochanteric fracture of the right femur. Residual fracture lucency remain. No definite new fracture is identified. Alignment is satisfactory. Electronically Signed: Sha Nicholson MD at 16:12 EDT , Discharge Plan Triage Chief Complaint: Lower Extremity Injury ED Provider: Jeremiah Rawls Dx/Rx/DC Orders Clinical Impression: Encounter for postoperative wound check, Acute postoperative pain of right hip Instructions: ED Arthralgia, ED Post Op Wound Check, General, ED Post Op Wound Check, Pain Prescriptions: No Action calcium carbonate 500 mg calcium (1,250 mg) tablet 1 tablet PO DAILY pantoprazole 40 mg tablet,delayed release (DR/EC) 40 mg PO DAILY simethicone 125 mg capsule 125 mg PO TID-QID PRN (Reason: abdominal distention) cholecalciferol (vitamin D3) 25 mcg (1,000 unit) tablet 1,000 unit PO DAILY Patient Comments: TAKE 1 TABLET DAILY aspirin 81 mg Capsule 81 mg PO DAILY nicotine 21 mg/24 hr Patch 24 Hour 21 mg transdermal DAILY Qty: 30 0RF clopidogrel 75 mg Tablet 75 mg PO DAILY Qty: 30 0RF Patient Comments: patient stated pretty sure I still take that atorvastatin 80 mg tablet 80 mg PO DAILY Qty: 30 0RF escitalopram oxalate [Lexapro] 10 mg tablet 10 mg PO DAILY Qty: 30 0RF carvedilol 12.5 mg Tablet 12.5 mg PO BIDCM Qty: 60 0RF Entresto 24-26 mg Tablet 1 tab PO BID 30 Days Qty: 60 0RF furosemide 40 mg Tablet 40 mg PO BIDLX Qty: 60 0RF gabapentin 300 mg capsule 300 mg PO TID Qty: 90 0RF Rx Instructions: Take 300 mg tablet only twice a day for the first 3 days then you may continue through 100 mg 3 times a day for the remainder of the prescription spironolactone 50 mg Tablet 50 mg PO DAILY 30 Days Qty: 30 2RF Rx Instructions: Hold for hyperkalemia, serum potassium more than 5.0 insulin glargine [Lantus U-100 Insulin] 100 unit/mL solution 20 unit subcut BID Qty: 10 2RF Rx Instructions: Hold if glucose less than 130 mg/dl ondansetron 4 mg tablet,disintegrating 4 mg PO Q8H PRN (Reason: nausea and vomiting) Qty: 7 0RF dapagliflozin propanediol [Farxiga] 10 mg tablet 10 mg PO DAILY Qty: 90 3RF Patient Comments: patient stated I know I am supposed to be taking this one but I never got a notification from the pharmacy to come pick it up Primary Care Provider: [facility] Referrals: [facility] [Primary Care Provider] - Activity Restrictions/Additional Instructions: Continue your previous pain medications. Your postoperative wound does not appear to be acutely infected. Disposition Disposition: Home, Self Care
[2023-10-15] MEDS: oxyCODONE 5 MG Tablet PO (17:10)
[2023-10-15 17:28] VITALS: BP 131/75; PULSE 87; RESP 17; TEMP 36.2; O2SAT 98
== END 2023-10-15 18:13 | disposition home or self-care (01) ==
PROVIDERS: Emergency Provider Emergency Medicine; Visit Provider Emergency Medicine
DX: Z51.89 Encounter for other specified aftercare (principal); I11.0 Hypertensive heart disease with heart failure; I50.9 Heart failure, unspecified; E11.9 Type 2 diabetes mellitus without complications; Z96.641 Presence of right artificial hip joint; I25.10 Atherosclerotic heart disease of native coronary artery without angina pectoris; E78.5 Hyperlipidemia, unspecified; I25.2 Old myocardial infarction; Z79.82 Long term (current) use of aspirin; Z79.899 Other long term (current) drug therapy; Z79.02 Long term (current) use of antithrombotics/antiplatelets; F32.A Depression, unspecified; K21.9 Gastro-esophageal reflux disease without esophagitis; Z90.49 Acquired absence of other specified parts of digestive tract; F17.210 Nicotine dependence, cigarettes, uncomplicated
CPT/HCPCS: 73502; 99282

== ENCOUNTER → 2023-10-23 | Outpatient (REF) | payer MEDICAID, SELFPAY ==
[2023-10-23 07:54] LABS: Hematocrit 36.8 % (37-47); Hemoglobin 11.7 g/dL (12.0-15.0); Mean Corp Hgb Conc 31.8 g/dL (32-36); Mean Corpuscular Hgb 27.5 pg (27.0-32.0); Mean Corpuscular Volume 86.6 fL (81-99); Mean Platelet Vol. 9.5 fl (6.2-12.0); Platelet Count 233 K/mm3 (150-450); RBC Distribution Width CV 15.9 % (11.6-14.6); RBC Distribution Width SD 49.8 fl (35.1-43.9); Red Blood Count 4.25 M/mm3 (4.2-5.4); White Blood Count 9.2 K/mm3 (4.4-11.0)
[2023-10-23 08:37] LABS: Anion Gap 6 (5-15); BUN 24 mg/dL (7-18); BUN/Creat Ratio 36.1 RATIO (10-20); Calcium,Total 9.5 mg/dL (8.5-10.1); Chloride 106 mmol/L (98-107); Creatinine, Serum 0.66 mg/dL (0.55-1.02); EST Glomerular Filtration Rate 99 mL/min (>60); Est Glom Filt Rate - Afr Amer 120 mL/min (>60); Glucose 64 mg/dL (74-106); Magnesium 2.1 mg/dL (1.6-2.6); Potassium 4.5 mmol/L (3.5-5.1); Sodium Level 138 mmol/L (136-145)
== END | disposition home or self-care (01) ==
LOC: OLS.SW 05:00
PROVIDERS: Visit Provider Internal Medicine
DX: E11.65 Type 2 diabetes mellitus with hyperglycemia (principal); I10 Essential (primary) hypertension; E78.5 Hyperlipidemia, unspecified
CPT/HCPCS: 36415; 80048; 83735; 85027

== ENCOUNTER → 2023-10-30 | Outpatient (REF) | payer MEDICAID, SELFPAY ==
[2023-10-30 08:24] LABS: Hematocrit 38.9 % (37-47); Hemoglobin 12.2 g/dL (12.0-15.0); Mean Corp Hgb Conc 31.4 g/dL (32-36); Mean Corpuscular Hgb 27.2 pg (27.0-32.0); Mean Corpuscular Volume 86.8 fL (81-99); Mean Platelet Vol. 9.7 fl (6.2-12.0); Platelet Count 241 K/mm3 (150-450); RBC Distribution Width CV 14.7 % (11.6-14.6); RBC Distribution Width SD 47.7 fl (35.1-43.9); Red Blood Count 4.48 M/mm3 (4.2-5.4); White Blood Count 8.2 K/mm3 (4.4-11.0)
[2023-10-30 08:55] LABS: Anion Gap 7 (5-15); BUN 28 mg/dL (7-18); BUN/Creat Ratio 38.9 RATIO (10-20); Calcium,Total 9.5 mg/dL (8.5-10.1); Chloride 106 mmol/L (98-107); Creatinine, Serum 0.72 mg/dL (0.55-1.02); EST Glomerular Filtration Rate 91 mL/min (>60); Est Glom Filt Rate - Afr Amer 110 mL/min (>60); Glucose 112 mg/dL (74-106); Magnesium 2.3 mg/dL (1.6-2.6); Potassium 4.6 mmol/L (3.5-5.1); Sodium Level 137 mmol/L (136-145)
== END | disposition home or self-care (01) ==
LOC: OLS.SW 05:00
PROVIDERS: Visit Provider Internal Medicine
DX: I11.0 Hypertensive heart disease with heart failure (principal); I50.9 Heart failure, unspecified; E78.5 Hyperlipidemia, unspecified; E11.9 Type 2 diabetes mellitus without complications; F41.9 Anxiety disorder, unspecified; I25.10 Atherosclerotic heart disease of native coronary artery without angina pectoris; I42.9 Cardiomyopathy, unspecified; S72.141D Displaced intertrochanteric fracture of right femur, subsequent encounter for closed fracture with routine healing
CPT/HCPCS: 36415; 80048; 83735; 85027

== ENCOUNTER 2023-11-14 13:53 | Observation (INO) | payer MEDICAID, SELFPAY ==
[2023-11-14 13:53] VITALS: BP 135/91; PULSE 115; RESP 18; TEMP 35.7; O2SAT 99
[2023-11-14 13:56] VITALS: BMI 26.2
--- NOTE | 2023-11-14 14:02 | EX.ED.DYSGE1 ---
HPI History of Present Illness Chief Complaint: Weakness [facility] Medical History Acute dyspnea Aftercare following surgery of the circulatory system Alcohol abuse Amputation toe CAD (coronary artery disease), [place] coronary artery CHF (congestive heart failure) Depression Diabetes type 2, uncontrolled DVT (deep venous thrombosis) Essential hypertension GERD (gastroesophageal reflux disease) Hx of fracture of humerus Hyperlipidemia Hypoxemia Ischemic cardiomyopathy Myocardial infarct Osteoporosis Pericardial effusion Psychiatric disorder Pulmonary embolism Rheumatoid arthritis Seizures Sleep apnea Smoker Substance abuse Toe amputee Home Medications ?Medication ?Instructions ?Recorded ?Last Taken ?Type cholecalciferol (vitamin D3) 25 1,000 unit PO DAILY vitamin 07/25/22 02/01/23 History mcg (1,000 unit) tablet calcium carbonate 1 tablet PO DAILY supplement 08/09/22 02/01/23 History aspirin 81 mg capsule 81 mg PO DAILY heart health 08/10/22 02/01/23 History nicotine 21 mg/24 hr daily 21 mg transdermal DAILY stop 09/02/22 02/01/23 Rx transdermal patch smoking #30 ea atorvastatin 80 mg tablet 80 mg PO DAILY cholesterol #30 tabs 02/03/23 Unknown Rx clopidogrel 75 mg tablet 75 mg PO DAILY anti platelet #30 02/03/23 Unknown Rx tabs escitalopram oxalate 10 mg tablet 10 mg PO DAILY mental health #30 02/03/23 Unknown Rx (Lexapro) tabs dapagliflozin propanediol 10 mg 10 mg PO DAILY diabetes #90 tabs 03/26/23 Unknown Rx tablet (Farxiga) pantoprazole 40 mg tablet,delayed 40 mg PO DAILY reflux 04/18/23 Unknown History release simethicone 125 mg capsule 125 mg PO TID-QID PRN abdominal 04/18/23 Unknown History distention carvedilol 12.5 mg tablet 12.5 mg PO BIDCM #60 tabs 05/07/23 Unknown Rx furosemide 40 mg tablet 40 mg PO BIDLX #60 tabs 05/07/23 Unknown Rx sacubitril 24 mg-valsartan 26 mg 1 tab PO BID 30 days #60 tabs 05/07/23 Unknown Rx tablet (Entresto) gabapentin 300 mg capsule 300 mg PO TID #90 caps 05/22/23 Unknown Rx insulin glargine 100 unit/mL 20 unit (0.2 mL) subcut BID 06/16/23 Unknown Rx subcutaneous solution (Lantus diabetes #10 mL U-100 Insulin) spironolactone 50 mg tablet 50 mg PO DAILY 30 days #30 tabs 06/16/23 Unknown Rx ondansetron 4 mg disintegrating 4 mg PO Q8H PRN nausea and 06/19/23 Unknown Rx tablet vomiting #7 tabs Allergy/AdvReac Type Severity Reaction Status Date / Time latex Allergy Hives Verified 11/14/23 13:56 Family History Mother Thyroid disorder Diabetes Hypertension Grandmother Diabetes Uncle Diabetes Aunt Diabetes Other Heart disease Surgical History History of appendectomy History of cholecystectomy Social History household members: spouse and children housing: house Smoking Status: Current every day smoker tobacco type: cigarettes alcohol intake: never substance use type: marijuana what type of physical activity do you participate in: none do you feel safe at home: Yes EXAM Physical Exam Const Vital Signs: 11/14/23 13:53 Temperature 96.2 F L Temperature Source Temporal Pulse Rate 115 H Respiratory Rate 18 Blood Pressure 135/91 H Blood Pressure Mean 105 Pulse Ox 99 Oxygen Delivery Method Room Air MDM MDM MDM Narrative Medical decision making narrative: HISTORY OF PRESENT ILLNESS: 53-year-old female presents with concern for inability to care for self at home. She states since being discharged from nursing facility approximately 12 days ago she has had increased weakness, difficulty ambulating and difficulty performing ADLs. She denies any headache, chest pain, shortness of breath, cough, fever, bleeding diathesis, vomiting. Notes is difficult to get around her small home with a walker. Is difficult for her to get up to the bedside commode. Notes her 20-year-old daughter lives with her and is not able to take care of her adequately REVIEW OF SYSTEMS: Pertinent positives: Diffuse weakness, right hip pain Pertinent negatives: As per HPI PHYSICAL EXAM: Nursing triage notes reviewed, Vital signs reviewed Constitutional: please see mdm HENT: MMM Eyes: Pupils equal round and reactive to light, Extraocular muscles intact Neck: No stridor, no JVD, full neck ROM Lungs: Clear to auscultation, No wheezing or rales. No increased work of breathing, no conversational dyspnea, no accessory muscle use, no nasal flaring. No respiratory distress noted Heart: Regular rate and rhythm, No murmurs, No rubs and No gallops, 2+ distal pulses (radial, femoral, posterior tibial) in all extremities Abdomen: Soft, there is no tenderness, rigidity, rebound or guarding, no obvious peritoneal signs, no palpable pulsatile abdominal masses, no auscultated abdominal bruit : No CVAT Extremities: No edema, right hip wound clean dry intact with no evidence of fluctuance, induration, warmth or signs of infection Neuro: No focal neurological deficits, cranial nerves II through XII intact, 5/5 strength in all extremities. Intact sensation to light touch in all extremities, 2+ reflexes bilateral patella tendons. Normal gait. No ataxia. Skin: No rash or lesions noted MEDICAL DECISION MAKING: Chief Complaint: Adult failure to thrive External records reviewed: Reviewed prior ED visit: Factors affecting care: n right hip arthroplasty, type 2 diabetes, CAD, CHF, ischemic cardiomyopathy, PE Social determinants of health: History of alcohol abuse History obtained from others: The patient's family Consults: Internal medicine (Dr. De La Vega) MDM Narrative: Patient was initially tachycardic otherwise hemodynamically stable and afebrile and nontoxic-appearing. I considered the following differential diagnosis: Arrhythmia, anemia, electrolyte disturbance, ACS, UTI, intoxication, acute renal failure, dehydration I obtained a broad lab and imaging workup to further elucidate the etiology the patient's complaints. I treat the patient 1 L normal saline, Tylenol and lidocaine patches for symptomatic control of right hip pain. ALL IMAGES (IF OBTAINED) HAVE BEEN PERSONALLY REVIEWED AND INTERPRETED BY MYSELF. EKG showed no evidence of STEMI, shows sinus tachycardia rate of 103, left axis deviation, normal intervals, no obvious STEMI, similar to prior EKG noted from August 2023 CBC without leukocytosis, severe anemia, no thrombocytopenia. BMP with mild hyponatremia, no evidence of other significant electrolyte abnormalities, no acute kidney injury, no signs of endorgan hypoperfusion or metabolic acidosis noted High-sensitivity troponin is negative, no evidence of myocardial ischemia Urinalysis shows no evidence of urinary inflammation suggestive of UTI Urine drug screen positive for THC Serum alcohol is negative I have personally reviewed the patient's chest x-ray. Chest x-ray is unremarkable for pulmonary edema, pneumothorax, pneumonia or focal cardiopulmonary abnormality. The synthesis of the patient's history, physical exam, labs images suggest no acute abnormality however given her inability to ambulate effectively, concern for multiple falls, significant weakness and difficulty performing ADLs patient be admitted for evaluation by physical therapy and social work for potential placement discussed with hospitalist Dr. [facility] The patient and/or family, caregivers express understanding. The patient and/or family, caregivers agrees with the plan. Shared decision making: I will have a discussion with the patient and or visitors regarding risk/benefits of further testing or admission. They will be made aware of of the risk/benefits inherent in this decision they will be given the opportunity to voice understanding. Total critical care time today provided was at least 0 minutes. This excludes separately billable procedures. Critical care time (if documented) is secondary to the patient having high probability of clinically significant/life threatening deterioration in the patient's condition which required my urgent intervention. Impression: 1. Adult failure to thrive 2. Weakness 3. Hyponatremia [facility] This note was generated with Connect2[employer] dictation software. It may contain incorrect words, spelling, and punctuation that were not noted in review of the chart prior to signing. Lab Data Labs: Laboratory Results - last 24 hr 11/14/23 11/14/23 11/14/23 14:41 14:55 15:19 WBC 7.1 RBC 4.52 Hgb 12.2 Hct 37.8 MCV 83.6 MCH 27.0 MCHC 32.3 RDW Std Deviation 42.9 RDW Coeff of [place] 14.2 Plt Count 199 MPV 9.3 Immature Gran % (Auto) 0.300 Neut % (Auto) 71.6 H Lymph % (Auto) 17.3 L [place] % (Auto) 8.2 Eos % (Auto) 1.8 Baso % (Auto) 0.8 Absolute Neuts (auto) 5.1 Absolute Lymphs (auto) 1.23 Nucleated RBC % 0 Sodium 135 L Potassium 4.1 Chloride 103 Carbon Dioxide 30.0 Anion Gap 2 L BUN 12 Creatinine 0.79 Estim Creat Clear Calc 88.48 Est GFR (MDRD) Af Amer 98 Est GFR (MDRD) Non-Af 81 BUN/Creatinine Ratio 15.2 Glucose 274 H Calcium 9.4 Troponin I High Sens 12 Urine Color Yellow Urine Clarity Clear Urine pH 6.0 Ur Specific [place] 1.015 Urine Protein 100 H Urine Glucose (UA) 100 H Urine Ketones Negative Urine Occult Blood 150 H Urine Nitrite Negative Urine Bilirubin Negative Urine Urobilinogen 1 H Ur Leukocyte Esterase Negative Urine RBC 0-5 SEEN Urine WBC 0 SEEN Ur Squamous Epith Cells 0-5 SEEN Urine Bacteria 0 SEEN Urine Mucus 0 SEEN Urine Opiates Screen NEGATIVE Urine Methadone Screen NEGATIVE Ur Barbiturates Screen NEGATIVE Ur Phencyclidine Scrn NEGATIVE Ur Amphetamines Screen NEGATIVE MDMA (Ecstasy) Screen NEGATIVE U Benzodiazepines Scrn NEGATIVE Urine Cocaine Screen NEGATIVE U Cannabinoids Screen POSITIVE H Ur Drug Screen Comment Ethyl Alcohol 6.0 Radiography Diagnostic Testing: Clinical Impression(s) from Imaging Studies Chest X-Ray 11/14/23 14:55 IMPRESSION: No acute abnormality is seen. Electronically Signed: Ryan Tejeda MD at 15:15 EDT Reading Location ID and State: [id number] / [place] , Service support , Discharge Plan Triage Chief Complaint: Weakness ED Provider: Davis Ibarra Dx/Rx/DC Orders [facility]
--- NOTE | 2023-11-14 14:41 | EKG12_ITS ---
Test Reason : Blood Pressure : / mmHG Vent. Rate : 103 BPM Atrial Rate : 103 BPM P-R Int : 174 ms QRS Dur : 114 ms QT Int : 346 ms P-R-T Axes : 050 -45 119 degrees QTc Int : 453 ms Sinus tachycardia Left axis deviation Minimal voltage criteria for LVH, may be normal variant ( [place] product ) Septal infarct , age undetermined ST & T wave abnormality, consider lateral ischemia Abnormal ECG No previous ECGs available Confirmed by TIP HERNANDEZ, LORETA ([id number]), health editor FELICIA HOLCOMB ([id number]) on 11/21/2023 10:05:21 AM Referred By: LEA Confirmed By:LORETA WHELAN MD
[2023-11-14 14:55] LABS: Absolute Lymphocyte Count 1.23 X10^3/uL (0.83-4.51); Absolute Neutrophil Count 5.1 X10^3/uL (2.0-7.7); Basophil# 0.06 X10^3/uL; Basophil% 0.8 % (0-1); Eosinophil# 0.13 X10^3/uL; Eosinophils% 1.8 % (0-5); Hematocrit 37.8 % (37-47); Hemoglobin 12.2 g/dL (12.0-15.0); Lymphocyte # 1.23 X10^3/ul (0.83-4.51); Lymphocyte % 17.3 % (19-41); Mean Corp Hgb Conc 32.3 g/dL (32-36); Mean Corpuscular Volume 83.6 fL (81-99); Mean Platelet Vol. 9.3 fl (6.2-12.0); Monocyte# 0.58 X10^3/uL; Monocyte% 8.2 % (0-10); NRBC Flagged by Analyzer 0 % (0-5); Neutrophil # 5.08 X10^3/uL (2.7-7.7); Neutrophil % 71.6 % (47-70); Platelet Count 199 K/mm3 (150-450); RBC Distribution Width CV 14.2 % (11.6-14.6); RBC Distribution Width SD 42.9 fl (35.1-43.9); Red Blood Count 4.52 M/mm3 (4.2-5.4); White Blood Count 7.1 K/mm3 (4.4-11.0)
--- NOTE | 2023-11-14 14:55 | RAD_ITS ---
STUDY: X-RAY CHEST REASON FOR EXAM: Female, 53 years old. Weakness TECHNIQUE: Single AP portable view of the chest. COMPARISON: Comparison is made with prior study dated September 02, 2023. FINDINGS: EKG electrodes are seen. The lungs are clear and expanded. There is no demonstrated pleural abnormality. Normal size heart. Normal mediastinum and edmundo. Normal visualized pulmonary arteries. Normal visualized aortic arch and descending thoracic aorta. There are degenerative changes of the visualized thoracic spine. Healed fracture of the proximal right humerus. There is no demonstrated abnormality of the visualized soft tissue structures of the upper abdomen. RAD/Chest 1 View (Portable) IMPRESSION: No acute abnormality is seen. Electronically Signed: Ryan Tejeda MD at 15:15 EDT ,
[2023-11-14] MEDS: 0.9% Normal Saline (1000mL) 1,000 ML 999 ML IV (15:11)
[2023-11-14 15:15] LABS: Anion Gap 2 (5-15); BUN 12 mg/dL (7-18); BUN/Creat Ratio 15.2 RATIO (10-20); Calcium,Total 9.4 mg/dL (8.5-10.1); Chloride 103 mmol/L (98-107); Creatinine, Serum 0.79 mg/dL (0.55-1.02); EST Glomerular Filtration Rate 81 mL/min (>60); Est Glom Filt Rate - Afr Amer 98 mL/min (>60); Estimated Creatinine Clearance 88.48 ml/min; Glucose 274 mg/dL (74-106); Potassium 4.1 mmol/L (3.5-5.1); Sodium Level 135 mmol/L (136-145); Troponin-I HS 12 pg/mL (3.0-54.0)
[2023-11-14 15:24] LABS: Bacteria 0 SEEN /hpf (None Seen); Mucous, Urine 0 SEEN /hpf (<or=2+); White Blood Cells 0 SEEN /hpf (0-5)
[2023-11-14 15:36] LABS: Color, Urine Yellow (Yellow); Glucose, Dipstick 100 mg/dl (Normal); Ketone-Dipstick Negative (Negative); Leukocyte Esterase-Dipstick Negative /ul (Negative); Nitrite-Dipstick Negative (Negative); Occult Blood-Urine 150 /ul (Negative); Protein-Dipstick 100 mg/dl (Negative); Specific Gravity, Urine 1.015 (1.002-1.030); Urine Bilirubin Dipstick Negative (Negative); Urine Clarity Clear (Clear); Urine Urobilinogen 1 mg/dl (Normal)
--- NOTE | 2023-11-14 15:41 | HP.PCM.HOS_ITS ---
[facility] - General General Date of Admission: 11/14/23 Date of Service: 11/14/23 Chief Complaint: Failure to thrive HPI Narrative TRENTON DENTON, is a 53 F with past medical history of coronary artery disease, peripheral artery disease, HFrEF with ejection fraction of 10%, hypertension, dyslipidemia, GERD, anxiety, type 2 diabetes mellitus, who presents to the ED with concerns regarding failure to thrive at home, accompanied by mother and daughter who are not able to take care of her at home. She has a history of right hip arthroplasty following fracture around Easter in September this year. Since her fracture she has difficulty in mobilizing and requires increased support at home. She was recently in the ED for concerns regarding pain over her joint and was for asking for more pain medications. The reason for the pain was likely chronic pain and was given additional oxycodone 5 mg. She was recently discharged on 07/03/2023 for concerns regarding acute on chronic heart failure when her BNP was elevated to 529 and 2D echo showed an ejection fraction 15% with severe segmental systolic dysfunction and stage III diastolic dysfunction. She was discharged after optimization of her care Blood pressure 135/91, pulse 115, temperature 96.2 WBC 7.1, hemoglobin 12.2, platelet count 199, sodium 135, potassium 4.1, creatinine 0.79, glucose 274, ED received metoclopramide and normal saline 1 L. No abnormality on chest x-ray. In the ED she received 1 L of sodium chloride infusion. [facility] Medical History Acute dyspnea Aftercare following surgery of the circulatory system Alcohol abuse Amputation toe CAD (coronary artery disease), [place] coronary artery CHF (congestive heart failure) Depression Diabetes type 2, uncontrolled DVT (deep venous thrombosis) Essential hypertension GERD (gastroesophageal reflux disease) Hx of fracture of humerus Hyperlipidemia Hypoxemia Ischemic cardiomyopathy Myocardial infarct Osteoporosis Pericardial effusion Psychiatric disorder Pulmonary embolism Rheumatoid arthritis Seizures Sleep apnea Smoker Substance abuse Toe amputee Home Medications ?Medication ?Instructions ?Recorded ?Last Taken ?Type cholecalciferol (vitamin D3) 25 1,000 unit PO DAILY vitamin 07/25/22 02/01/23 History mcg (1,000 unit) tablet calcium carbonate 1 tablet PO DAILY supplement 08/09/22 02/01/23 History aspirin 81 mg capsule 81 mg PO DAILY heart health 08/10/22 02/01/23 History nicotine 21 mg/24 hr daily 21 mg transdermal DAILY stop 09/02/22 02/01/23 Rx transdermal patch smoking #30 ea atorvastatin 80 mg tablet 80 mg PO DAILY cholesterol #30 tabs 02/03/23 Unknown Rx clopidogrel 75 mg tablet 75 mg PO DAILY anti platelet #30 02/03/23 Unknown Rx tabs escitalopram oxalate 10 mg tablet 10 mg PO DAILY mental health #30 02/03/23 Unknown Rx (Lexapro) tabs dapagliflozin propanediol 10 mg 10 mg PO DAILY diabetes #90 tabs 03/26/23 Unknown Rx tablet (Farxiga) pantoprazole 40 mg tablet,delayed 40 mg PO DAILY reflux 04/18/23 Unknown History release simethicone 125 mg capsule 125 mg PO TID-QID PRN abdominal 04/18/23 Unknown History distention carvedilol 12.5 mg tablet 12.5 mg PO BIDCM #60 tabs 05/07/23 Unknown Rx furosemide 40 mg tablet 40 mg PO BIDLX #60 tabs 05/07/23 Unknown Rx sacubitril 24 mg-valsartan 26 mg 1 tab PO BID 30 days #60 tabs 05/07/23 Unknown Rx tablet (Entresto) gabapentin 300 mg capsule 300 mg PO TID #90 caps 05/22/23 Unknown Rx insulin glargine 100 unit/mL 20 unit (0.2 mL) subcut BID 06/16/23 Unknown Rx subcutaneous solution (Lantus diabetes #10 mL U-100 Insulin) spironolactone 50 mg tablet 50 mg PO DAILY 30 days #30 tabs 06/16/23 Unknown Rx ondansetron 4 mg disintegrating 4 mg PO Q8H PRN nausea and 06/19/23 Unknown Rx tablet vomiting #7 tabs Allergy/AdvReac Type Severity Reaction Status Date / Time latex Allergy Hives Verified 11/14/23 13:56 Family History Mother Thyroid disorder Diabetes Hypertension Grandmother Diabetes Uncle Diabetes Aunt Diabetes Other Heart disease Surgical History History of appendectomy History of cholecystectomy Social History household members: spouse and children housing: house Smoking Status: Current every day smoker tobacco type: cigarettes alcohol intake: never substance use type: marijuana what type of physical activity do you participate in: none do you feel safe at home: Yes ROS Constitutional Constitutional: Reports change in weight, fatigue, malaise and weakness Eyes Eyes: Denies blurry vision, change in eye color, change in vision, discharge from eye(s), double vision, erythema, eye pain, loss of vision or other ENT HEENT: Denies abnormal hearing, dysphagia, ear pain, epistaxis, headache(s), hearing loss, nasal congestion, nasal discharge, post nasal drip, sinus pressure, sore throat or other Cardiovascular Cardiovascular: Denies chest pain, claudication, dyspnea on exertion, edema, lightheadedness, orthopnea, palpitations, paroxysmal nocturnal dyspnea, rapid heart rate, syncope or other Respiratory/Chest Respiratory/Chest: Denies cough, dyspnea, excessive phlegm production, hemoptysis, productive cough, shortness of breath at rest, shortness of breath with exertion, wheezing or other Gastrointestinal Gastrointestinal: Denies abdominal pain, coffee ground emesis, constipation, diarrhea, dyspepsia, hematemesis, hematochezia, loose stools, melena, nausea, vomiting or other Genitourinary Genitourinary: Denies burning urination, difficulty urinating, dysuria, hematuria, nocturia, urinary frequency, urinary hesitancy, urinary incontinence, urinary urgency or other Musculoskeletal Musculoskeletal: Denies arthralgias, back pain, joint pain, joint stiffness, joint swelling, myalgias, neck pain or other Neurologic Neurologic: Denies abnormal gait, abnormal speech, confusion, disequilibrium, dizziness, focal weakness, headache(s), numbness, paresthesias, seizure-like activity, seizures, syncope, tingling, tremor(s) or other Psychiatric Psychiatric: Denies anxiety, depression, homicidal ideation, suicidal ideation or other Endocrine Endocrinology: Denies change in body appearance, cold intolerance, excessive sweating, heat intolerance, polydipsia, polyuria or other Hematologic/Lymphatic Hematologic/Lymphatic: Denies anemia, easy bleeding, easy bruising, lymphadenopathy or other Allergic/Immunologic Allergic/Immunologic: Denies rhinitis, hives, eczemia, asthma or other Vital Signs Vital Signs Vital Signs: 11/14/23 13:53 Temperature 96.2 F L Temperature Source Temporal Pulse Rate 115 H Respiratory Rate 18 Blood Pressure 135/91 H Blood Pressure Mean 105 Pulse Ox 99 Oxygen Delivery Method Room Air Weight Weight: 167 lb 1.766 oz Body Mass Index (BMI) 26.2 Physical Exam Const alert and oriented x3 HEENT normocephalic Eyes PERRL Neck no lymphadenopathy Resp normal respiratory effort Cardio regular rate and regular rhythm GI normal to inspection, nondistended, normoactive bowel sounds Extremity normal to inspection Extremity Narrative: Pain present over left, left transmetatarsal amputation Results Medical Records Data Attestation: I reviewed the patient's medical records Lab / Micro Data Attestation: I reviewed the patient's lab results. 11/14/23 14:41 11/14/23 14:41 Labs: Laboratory Results - last 24 hr 11/14/23 14:41: WBC 7.1, RBC 4.52, Hgb 12.2, Hct 37.8, MCV 83.6, MCH 27.0, MCHC 32.3, RDW Std Deviation 42.9, RDW Coeff of [place] 14.2, Plt Count 199, MPV 9.3, Immature Gran % (Auto) 0.300, Neut % (Auto) 71.6 H, Lymph % (Auto) 17.3 L, [place] % (Auto) 8.2, Eos % (Auto) 1.8, Baso % (Auto) 0.8, Absolute Neuts (auto) 5.1, Absolute Lymphs (auto) 1.23, Nucleated RBC % 0, Sodium 135 L, Potassium 4.1, Chloride 103, Carbon Dioxide 30.0, Anion Gap 2 L, BUN 12, Creatinine 0.79, Estim Creat Clear Calc 88.48, Est GFR (MDRD) Af Amer 98, Est GFR (MDRD) Non-Af 81, BUN/Creatinine Ratio 15.2, Glucose 274 H, Calcium 9.4, Troponin I High Sens 12 11/14/23 14:55: Ethyl Alcohol 6.0 11/14/23 15:19: Urine Color Yellow, Urine Clarity Clear, Urine pH 6.0, Ur Specific [place] 1.015, Urine Protein 100 H, Urine Glucose (UA) 100 H, Urine Ketones Negative, Urine Occult Blood 150 H, Urine Nitrite Negative, Urine Bilirubin Negative, Urine Urobilinogen 1 H, Ur Leukocyte Esterase Negative, Ur Drug Screen Comment Imaging Radiology Impression Chest X-Ray 11/14/23 14:55 IMPRESSION: No acute abnormality is seen. Electronically Signed: Ryan Tejeda MD at 15:15 EDT , Assessment & Plan Assessment/Plan (1) History of coronary artery disease: PLAN: Plan 53-year-old female, with history of coronary artery disease, ischemic cardiomyopathy, HFrEF, type 2 diabetes, diabetic foot, recent hip fracture presents to the ED with concerns regarding failure to thrive at home, and inability to take care of herself at home. 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
[2023-11-14 15:42] LABS: Amphetamine Urine VISTA NEGATIVE (<1000 ng/mL); Barbiturate Urine VISTA NEGATIVE (< 200 ng/mL); Benzodiazepine Urine VISTA NEGATIVE (< 200 ng/mL); Cocaine Urine VISTA NEGATIVE (< 300 ng/mL); Ecstacy Urine VISTA NEGATIVE (< 500 ng/mL); Methadone Urine VISTA NEGATIVE (< 300 ng/mL); PCP Urine VISTA NEGATIVE (< 25 ng/mL); THC Urine VISTA POSITIVE (< 50 ng/mL); Vista UDS pH Range 5
[2023-11-14 15:53] VITALS: BP 156/92; PULSE 103; RESP 19; O2SAT 97
[2023-11-14 15:57] LABS: Red Blood Cells-Urine 0-5 SEEN /hpf (0-5); Squamous Epithelial Cells - UA 0-5 SEEN /hpf (5-10)
[2023-11-14] MEDS: Acetaminophen 325 MG Tablet 650 MG PO (16:17)
[2023-11-14] MEDS: Lidocaine 5% Patch 1 PATCH TOPICAL (16:17)
[2023-11-14 16:26] VITALS: BP 156/92; PULSE 102; RESP 18; TEMP 37; O2SAT 98
[2023-11-14 17:10] VITALS: BMI 26.7
[2023-11-14 17:19] VITALS: BP 148/83; PULSE 107; RESP 16; TEMP 36.8; O2SAT 99
[2023-11-14] MEDS: Furosemide 40 MG Tablet PO (17:26)
[2023-11-14] MEDS: Carvedilol 12.5 MG Tablet PO (17:26)
[2023-11-14] MEDS: oxyCODONE 5 MG Tablet PO ×2 (17:26→21:29)
[2023-11-14] MEDS: Ondansetron ODT 4 MG Tablet PO (17:32)
[2023-11-14 17:40] LABS: Bedside Glucose 230 mg/dL (74-106)
[2023-11-14 21:09] VITALS: BP 119/61; PULSE 97; RESP 15; TEMP 36.8; O2SAT 98
[2023-11-14] MEDS: Insulin Glargine-YFGN 100 UNIT/ML Pen 20 UNIT SC (21:15)
[2023-11-14] MEDS: SACUBITRIL/VALSARTAN 24/26 MG TABLET 1 EACH PO (21:17)
[2023-11-14] MEDS: Atorvastatin Calcium 80 MG Tablet PO (21:17)
[2023-11-14] MEDS: Gabapentin 300 MG Capsule PO (21:29)
[2023-11-14 22:00] VITALS: RESP 15; O2SAT 97
[2023-11-14 22:30] LABS: Bedside Glucose 233 mg/dL (74-106)
[2023-11-15] VITALS (7 sets, daily range): BP systolic 105–134; BP diastolic 58–78; PULSE 90–99; RESP 15–16; TEMP 36.6–37.3; O2SAT 96–99
[2023-11-15] MEDS: Ondansetron ODT 4 MG Tablet PO ×3 (02:10→21:42)
[2023-11-15] MEDS: oxyCODONE 5 MG Tablet PO ×5 (02:10→21:44)
[2023-11-15] MEDS: Gabapentin 300 MG Capsule PO ×3 (06:18→21:43)
[2023-11-15 07:12] LABS: Bedside Glucose 228 mg/dL (74-106)
[2023-11-15 07:22] LABS: Absolute Lymphocyte Count 1.06 X10^3/uL (0.83-4.51); Absolute Neutrophil Count 4.2 X10^3/uL (2.0-7.7); Basophil# 0.05 X10^3/uL; Basophil% 0.8 % (0-1); Eosinophil# 0.15 X10^3/uL; Eosinophils% 2.5 % (0-5); Hematocrit 37.6 % (37-47); Hemoglobin 11.9 g/dL (12.0-15.0); Lymphocyte # 1.06 X10^3/ul (0.83-4.51); Lymphocyte % 17.6 % (19-41); Mean Corp Hgb Conc 31.6 g/dL (32-36); Mean Corpuscular Hgb 26.7 pg (27.0-32.0); Mean Corpuscular Volume 84.5 fL (81-99); Mean Platelet Vol. 10.8 fl (6.2-12.0); Monocyte# 0.52 X10^3/uL; Monocyte% 8.7 % (0-10); NRBC Flagged by Analyzer 0 % (0-5); Neutrophil % 69.9 % (47-70); Platelet Count 180 K/mm3 (150-450); RBC Distribution Width CV 14.2 % (11.6-14.6); RBC Distribution Width SD 43.8 fl (35.1-43.9); Red Blood Count 4.45 M/mm3 (4.2-5.4)
[2023-11-15] MEDS: Pantoprazole Sodium 40 MG Tablet PO (08:38)
[2023-11-15] MEDS: Carvedilol 12.5 MG Tablet PO ×2 (08:39→17:11)
[2023-11-15] MEDS: Cholecalciferol (VIT D3) 25 MCG TABLET (1,000 UNITS) PO (08:39)
[2023-11-15] MEDS: Calcium (Elemental) 500 MG Tablet PO (08:39)
[2023-11-15] MEDS: Aspirin 81 MG TAB.CHEW PO (08:39)
[2023-11-15 08:56] LABS: International Normalized Ratio 1.1; Prothrombin Time (Protime)PT. 13.7 SECONDS (11.7-14.9)
--- NOTE | 2023-11-15 09:07 | CASEMGMT ---
Discharge Planning A list of?SNF providers including quality and resource use data and consistent with the patient's preferred geographic region, medical needs, and insurance network was created in [facility]Port Guide.? This list was provided to the SW. Arelis Ngo Discharge Planning Asst.
[2023-11-15 10:29] LABS: ALB/GLOB Ratio 0.8 RATIO (0.9-2.4); AST(SGOT) 20 U/L (15-37); Alanine Aminotransfer ALT/SGPT 14 U/L (13-56); Albumin, Serum 2.7 g/dL (3.2-5.0); Alkaline Phosphatase 150 U/L (45-117); Anion Gap 7 (5-15); BUN 10 mg/dL (7-18); BUN/Creat Ratio 18.1 RATIO (10-20); Calcium,Total 8.8 mg/dL (8.5-10.1); Chloride 103 mmol/L (98-107); Creatinine, Serum 0.55 mg/dL (0.55-1.02); EST Glomerular Filtration Rate 122 mL/min (>60); Est Glom Filt Rate - Afr Amer 148 mL/min (>60); Estimated Creatinine Clearance 128.42 ml/min; Globulin 3.6 g/dL (2.2-4.2); Glucose 238 mg/dL (74-106); Phosphorus 3.2 mg/dL (2.5-4.9); Potassium 3.6 mmol/L (3.5-5.1); Protein, Total 6.3 g/dL (6.4-8.2); Sodium Level 136 mmol/L (136-145)
[2023-11-15] MEDS: Spironolactone 50 MG Tablet PO (11:07)
[2023-11-15] MEDS: SACUBITRIL/VALSARTAN 24/26 MG TABLET 1 EACH PO ×2 (11:08→21:43)
[2023-11-15] MEDS: Furosemide 40 MG Tablet PO ×2 (11:08→17:12)
[2023-11-15] MEDS: Escitalopram Oxalate 10 MG Tablet PO (11:08)
[2023-11-15] MEDS: Clopidogrel Bisulfate 75 MG Tablet PO (11:09)
[2023-11-15] MEDS: Insulin Lispro 100 UNIT/ML INSULN.PEN SC ×2 (11:15→17:10)
[2023-11-15] MEDS: Insulin Glargine-YFGN 100 UNIT/ML Pen 20 UNIT SC ×2 (11:16→21:51)
--- NOTE | 2023-11-15 11:28 | CASEMGMT ---
Addendum entered by Arelis Ngo 11/15/23 14:12: Patient has been accepted by [facility]. Therapy evals sent via Careport and requested that precert be submitted. SW updated. Arelis Ngo DC Planning Asst. Original Note: Discharge Planning Referral sent via Careport to [facility]. Arelis Ngo DC Planning Asst.
--- NOTE | 2023-11-15 11:34 | CASEMGMT ---
Social Work SW met w/pt in room in regard to prior level of function, and anticipated discharge plan. Pt complaining of nausea and pain, RN aware and came into the room while SW speaking w/pt to address these concerns. PCP: [facility] Specialists: Dr. Brito, cardiology Preferred Pharmacy: [facility] in [place] Insurance/ Prescription [facility] LW/POA: Has not completed LNOK: Mother , daughter Ashlee Living arrangements/prior level of function: Pt lives in a 2 story apartment w/her daughter. Pt fell in September, broke her him, and was at [facility] from then until November 02. Pt went home November 02 and is not managing well at home. Pt's daughter is helping her with most ADLs. Pt explains is walking w/help. She states she cannot shower as the shower is upstairs. Daughter is doing the cooking, cleaning, med management. Pt's mother takes pt to appts. Pt explains that they thought they could manage at home but her daughter is overwhelmed. Pt declined to give SW her daughter's contact information due to her daughter being overwhelmed. She states that [facility] was supposed to set up home health but it never started. DME: Pt has a walker, cane, glucometer, wheelchair, hospital bed, bedside commode. Pt has an oxygen concentrator at home through [facility] [place], states has home oxygen for sleep apnea. SNF/HHC: Pt was at [facility] recently, did not have home health MH: Pt confirms she has depression, anxiety and PTSD. She did not see any mental health services at [facility]. Plan: KIKE spoke w/pt about discharge plan. She is agreeable to SNF again. SW did provide to pt SNF list from [facility]. Pt states she wants to return to [facility], was told by [facility] they would take her back. Pt agreeable to see mental health services at [facility], and also agreeable to a referral to Waiver. Pt states she had case management services at one time through [facility], but they stopped about a year ago. Pt open to this again, would prefer through [facility] however. KIKE called [facility], spoke w/Sola. She states that pt was moving well when she left [facility], was walking up and down the halls, making friends. She did not see any mental health services while there. Sola states pt was eating well, family had called and told her that pt has not been eating or drinking since home from [facility]. She states family told her they could not care for her and Sola advised family to bring pt back into the hospital. Sola does anticipate they will take pt back. KIKE let Sola know will be referring pt back to [facility], and also completing a Waiver application. KIKE also mentioned that pt would benefit from mental health services there, if they are able to take pt back. Sola does not have daughter's phone number either, just pt's mother. KIKE completed the Waiver application, mailed it in. Arelis d/silas director strategic planning will send referral to [facility], PT/OT are pending. KIKE will continue to follow. MARTIN Marc
[2023-11-15 11:39] LABS: Bedside Glucose 296 mg/dL (74-106)
--- NOTE | 2023-11-15 12:00 | CASEMGMT ---
Social Work Yuliya is here from [facility] and is going to stop in to see pt. SW let pt know. SW also checked in regarding pt not eating at home. Pt explained that her daughter and her daughter's boyfriend were getting pt food, but they are making peanut butter and jelly, scrambled eggs. She states her eating has been effected as she cannot get up and cook for herself, but she is eating. [facility] She states her daughter says she is not a burden, but then flies off the handle at times. Pt's daughter is 20, just graduated. SW offered support. Pt does deny being suicidal at this time. SW will continue to follow. MARTIN Marc
--- NOTE | 2023-11-15 16:22 | PCM.PN.HOSP ---
Reason for Visit Reason for Visit: Diagnoses Personal history of other diseases of the circulatory system (11/14/23) Subjective Subjective Patient was seen and examined today, she was unable to perform her ADLs at home and requests to be placed in a skilled care facility for further rehab services. Objective Data Objective Data Vital Signs: Vital Signs Temp Pulse Resp BP Pulse Ox O2 Del Method 99.1 F 94 16 134/71 H 96 Room Air 11/15/23 15:32 11/15/23 15:32 11/15/23 15:32 11/15/23 15:32 11/15/23 15:32 11/15/23 15:32 Oxygen Delivery Method Room Air Weight: 77.564 kg Body Mass Index (BMI) 26.7 Intake & Output: Intake and Output for Last 24 Hours 11/13/23 11/14/23 11/15/23 23:59 23:59 23:59 Intake Total 1350 / 1750 950 / 950 Balance 1350 / 1750 950 / 950 Lab / Micro Data 11/15/23 06:34 11/15/23 06:34 Labs: Laboratory Results - last 24 hr 11/14/23 17:22: POC Glucose 230 H 11/14/23 21:14: POC Glucose 233 H 11/15/23 06:21: POC Glucose 228 H 11/15/23 06:34: WBC 6.0, RBC 4.45, Hgb 11.9 L, Hct 37.6, MCV 84.5, MCH 26.7 L, MCHC 31.6 L, RDW Std Deviation 43.8, RDW Coeff of Spencer 14.2, Plt Count 180, MPV 10.8, Immature Gran % (Auto) 0.500, Neut % (Auto) 69.9, Lymph % (Auto) 17.6 L, Aiken % (Auto) 8.7, Eos % (Auto) 2.5, Baso % (Auto) 0.8, Absolute Neuts (auto) 4.2, Absolute Lymphs (auto) 1.06, Nucleated RBC % 0, PT 13.7, INR 1.1, Sodium 136, Potassium 3.6, Chloride 103, Carbon Dioxide 26.0, Anion Gap 7, BUN 10, Creatinine 0.55, Estim Creat Clear Calc 128.42, Est GFR (MDRD) Af Amer 148, Est GFR (MDRD) Non-Af 122, BUN/Creatinine Ratio 18.1, Glucose 238 H, Calcium 8.8, Phosphorus 3.2, Magnesium 2.0, Total Bilirubin 0.80, Direct Bilirubin 0.20, AST 20, ALT 14, Alkaline Phosphatase 150 H, Total Protein 6.3 L, Albumin 2.7 L, Globulin 3.6, Albumin/Globulin Ratio 0.8 L, TSH 2.30 11/15/23 11:15: POC Glucose 296 H Physical Exam Const alert, oriented x3 and no apparent distress General Appearance: cooperative, well kempt and well developed Orientation / Consciousness: awake, oriented to person, oriented to place and oriented to time HEENT normocephalic, head/scalp atraumatic and moist oral mucous membranes Eyes PERRL, EOMs intact bilaterally and conjunctivae normal Neck supple, no JVD, thyroid normal and no carotid bruits General: trachea midline Resp normal respiratory effort, no retractions, no use of accessory muscles and clear to auscultation bilaterally Auscultation: Negative for rales, rhonchi or wheezes Cardio regular rate, regular rhythm, S1 normal heart sound, S2 normal heart sound, no murmurs, no rub and no gallops GI normal to inspection, nondistended, normoactive bowel sounds, soft to palpation, non-tender and non-distended Extremity no clubbing, cyanosis or edema Skin no rashes or lesions noted General Skin Exam: no breakdown Neuro oriented x3, CN's II-XII intact bilaterally, moves all extremities, no focal motor deficits and no sensory deficits noted Sensorium / Orientation: awake and alert Speech: speech normal Psych affect normal Assessment & Plan Assessment/Plan (1) Debility: PLAN: Plan 1. Acute on chronic debility secondary to multiple medical problems including coronary artery disease, cardiomyopathy, type 2 diabetes, and peripheral vascular disease-patient will be seen by PT and OT, anticipate placement in a custodial facility for short-term rehab services #2 cardiomyopathy-complicates care, management, recovery, and prognosis #3 coronary artery disease-this appears to be stable at this time, patient will remain on her current medications #4 type 2 diabetes-patient's blood sugars will be monitored, sliding scale insulin will be given as indicated #5 peripheral vascular disease-complicates care, management, recovery, and prognosis #6 essential hypertension-patient's blood pressure medications will be adjusted as needed Total clinical time spent by myself addressing the patient's medical issues, reviewing all of her data, and collaborating with patient's care team: 35 minutes Charges/Coding Visit Charges Inpatient E&M: 64255 Subs Hosp L2
[2023-11-15 17:35] LABS: Bedside Glucose 284 mg/dL (74-106)
[2023-11-15] MEDS: Atorvastatin Calcium 80 MG Tablet PO (21:43)
[2023-11-15 22:12] LABS: Bedside Glucose 206 mg/dL (74-106)
[2023-11-16 01:52] VITALS: BP 120/58; PULSE 90; RESP 15; TEMP 37; O2SAT 97
[2023-11-16] MEDS: oxyCODONE 5 MG Tablet PO ×5 (01:58→22:01)
[2023-11-16 04:49] VITALS: RESP 15
[2023-11-16] MEDS: Baclofen 10 MG Tablet 5 MG PO ×3 (06:26→21:30)
[2023-11-16] MEDS: Gabapentin 300 MG Capsule PO ×3 (06:27→21:35)
[2023-11-16 06:49] LABS: Bedside Glucose 159 mg/dL (74-106)
[2023-11-16 08:07] VITALS: BP 119/58; PULSE 87; RESP 16; TEMP 36.9; O2SAT 96
[2023-11-16] MEDS: Aspirin 81 MG TAB.CHEW PO (08:16)
[2023-11-16] MEDS: Carvedilol 12.5 MG Tablet PO ×2 (08:17→17:42)
[2023-11-16] MEDS: Calcium (Elemental) 500 MG Tablet PO (08:17)
[2023-11-16] MEDS: Ondansetron ODT 4 MG Tablet PO ×2 (08:20→22:01)
--- NOTE | 2023-11-16 09:41 | CASEMGMT ---
Social Work SW completed PAS/RR, have results, further review not needed. SW notified [facility] via [employer] in even this is needed for precert. MARTIN Marc
[2023-11-16] MEDS: Spironolactone 50 MG Tablet PO (10:21)
[2023-11-16] MEDS: SACUBITRIL/VALSARTAN 24/26 MG TABLET 1 EACH PO ×2 (10:22→21:30)
[2023-11-16] MEDS: Insulin Glargine-YFGN 100 UNIT/ML Pen 20 UNIT SC ×2 (10:23→21:39)
[2023-11-16] MEDS: Furosemide 40 MG Tablet PO ×2 (10:23→17:42)
[2023-11-16] MEDS: Escitalopram Oxalate 10 MG Tablet PO (10:23)
[2023-11-16] MEDS: Cholecalciferol (VIT D3) 25 MCG TABLET (1,000 UNITS) PO (10:24)
[2023-11-16] MEDS: Pantoprazole Sodium 40 MG Tablet PO (10:24)
[2023-11-16] MEDS: Clopidogrel Bisulfate 75 MG Tablet PO (10:24)
--- NOTE | 2023-11-16 11:07 | PCM.PN.HOSP ---
Reason for Visit Reason for Visit: Diagnoses Other malaise (11/14/23) Personal history of other diseases of the circulatory system (11/14/23) Subjective Subjective Patient was seen and examined today, she is in no distress, patient has no specific complaints of this examiner Objective Data Objective Data Vital Signs: Vital Signs Temp Pulse Resp BP Pulse Ox O2 Del Method 98.5 F 87 16 119/58 L 96 Room Air 11/16/23 08:07 11/16/23 08:07 11/16/23 08:07 11/16/23 08:07 11/16/23 08:07 11/16/23 08:07 Oxygen Delivery Method Room Air Weight: 77.564 kg Body Mass Index (BMI) 26.7 Intake & Output: Intake and Output for Last 24 Hours 11/14/23 11/15/23 11/16/23 23:59 23:59 23:59 Intake Total 1350 / 1750 1550 / 1650 100 / 100 Output Total 200 / 200 Balance 1350 / 1750 1350 / 1450 100 / 100 Lab / Micro Data 11/15/23 06:34 11/15/23 06:34 Labs: Laboratory Results - last 24 hr 11/15/23 11:15: POC Glucose 296 H 11/15/23 17:07: POC Glucose 284 H 11/15/23 21:50: POC Glucose 206 H 11/16/23 06:30: POC Glucose 159 H Physical Exam Narrative alert, oriented x3 and no apparent distress General Appearance: cooperative, well kempt and well developed Orientation / Consciousness: awake, oriented to person, oriented to place and oriented to time HEENT normocephalic, head/scalp atraumatic and moist oral mucous membranes Eyes PERRL, EOMs intact bilaterally and conjunctivae normal Neck supple, no JVD, thyroid normal and no carotid bruits General: trachea midline Resp normal respiratory effort, no retractions, no use of accessory muscles and clear to auscultation bilaterally Auscultation: Negative for rales, rhonchi or wheezes Cardio regular rate, regular rhythm, S1 normal heart sound, S2 normal heart sound, no murmurs, no rub and no gallops GI normal to inspection, nondistended, normoactive bowel sounds, soft to palpation, non-tender and non-distended Extremity no clubbing, cyanosis or edema Skin no rashes or lesions noted General Skin Exam: no breakdown Neuro oriented x3, CN's II-XII intact bilaterally, moves all extremities, no focal motor deficits and no sensory deficits noted Sensorium / Orientation: awake and alert Speech: speech normal Psych affect normal Assessment & Plan Assessment/Plan (1) Debility: PLAN: Plan 1. Acute on chronic debility secondary to multiple medical problems including coronary artery disease, cardiomyopathy, type 2 diabetes, and peripheral vascular disease-patient will continue with PT and OT, anticipate placement in a custodial facility for short-term rehab services. #2 cardiomyopathy-complicates care, management, recovery, and prognosis #3 coronary artery disease-this appears to be stable at this time, patient will remain on her current medications #4 type 2 diabetes-patient's blood sugars will be monitored, sliding scale insulin will be given as indicated #5 peripheral vascular disease-complicates care, management, recovery, and prognosis #6 essential hypertension-patient's blood pressure medications will be adjusted as needed Total clinical time spent by myself addressing the patient's medical issues, reviewing all of her data, and collaborating with patient's care team: 25 minutes Charges/Coding Visit Charges Inpatient E&M: 54428 Subs Hosp L1
[2023-11-16] MEDS: Insulin Lispro 100 UNIT/ML INSULN.PEN SC ×2 (11:44→17:41)
[2023-11-16 12:04] LABS: Bedside Glucose 248 mg/dL (74-106)
--- NOTE | 2023-11-16 13:26 | CASEMGMT ---
Social Work [facility] accepted pt and is starting precert. MARTIN Marc
[2023-11-16 14:59] VITALS: BP 103/64; PULSE 87; RESP 16; TEMP 37; O2SAT 96
[2023-11-16 17:10] LABS: Bedside Glucose 199 mg/dL (74-106)
[2023-11-16] MEDS: Acetaminophen 325 MG Tablet 650 MG PO (17:52)
[2023-11-16 21:25] VITALS: BP 121/67; PULSE 83; RESP 15; TEMP 36.9; O2SAT 98
[2023-11-16] MEDS: Atorvastatin Calcium 80 MG Tablet PO (21:30)
[2023-11-16 22:01] LABS: Bedside Glucose 186 mg/dL (74-106)
[2023-11-16 22:06] VITALS: RESP 15; O2SAT 95
[2023-11-17] VITALS (7 sets, daily range): BP systolic 84–117; BP diastolic 51–63; PULSE 77–87; RESP 15–16; TEMP 36.2–36.9; O2SAT 92–96
[2023-11-17] MEDS: oxyCODONE 5 MG Tablet PO ×4 (03:46→21:53)
[2023-11-17] MEDS: Baclofen 10 MG Tablet 5 MG PO ×3 (06:14→21:54)
[2023-11-17] MEDS: Gabapentin 300 MG Capsule PO ×3 (06:14→21:54)
[2023-11-17 06:52] LABS: Bedside Glucose 151 mg/dL (74-106)
[2023-11-17] MEDS: Carvedilol 12.5 MG Tablet PO (07:38)
[2023-11-17] MEDS: Calcium (Elemental) 500 MG Tablet PO (07:38)
[2023-11-17] MEDS: Aspirin 81 MG TAB.CHEW PO (07:38)
[2023-11-17] MEDS: Pantoprazole Sodium 40 MG Tablet PO (07:39)
[2023-11-17] MEDS: Cholecalciferol (VIT D3) 25 MCG TABLET (1,000 UNITS) PO (07:39)
[2023-11-17] MEDS: Clopidogrel Bisulfate 75 MG Tablet PO (07:39)
[2023-11-17] MEDS: Furosemide 40 MG Tablet PO ×2 (07:39→17:36)
[2023-11-17] MEDS: Escitalopram Oxalate 10 MG Tablet PO (07:40)
[2023-11-17] MEDS: SACUBITRIL/VALSARTAN 24/26 MG TABLET 1 EACH PO ×2 (07:40→21:55)
[2023-11-17] MEDS: Spironolactone 50 MG Tablet PO (07:42)
[2023-11-17] MEDS: Ondansetron ODT 4 MG Tablet PO ×2 (07:44→16:04)
[2023-11-17] MEDS: Insulin Glargine-YFGN 100 UNIT/ML Pen 20 UNIT SC ×2 (07:45→21:55)
[2023-11-17] MEDS: Nystatin Powder 15gm Bottle 1 APPLIC TOPICAL ×2 (09:18→21:57)
--- NOTE | 2023-11-17 10:37 | PCM.PN.HOSP ---
Reason for Visit Reason for Visit: Diagnoses Other malaise (11/14/23) Personal history of other diseases of the circulatory system (11/14/23) Subjective Subjective Patient was seen and examined today, she has no specific complaints. Objective Data Objective Data Vital Signs: Vital Signs Temp Pulse Resp BP Pulse Ox O2 Del Method 97.8 F 80 16 100/63 96 Room Air 11/17/23 08:33 11/17/23 08:33 11/17/23 08:33 11/17/23 08:33 11/17/23 08:33 11/17/23 08:33 Oxygen Delivery Method Room Air Weight: 77.564 kg Body Mass Index (BMI) 26.7 Intake & Output: Intake and Output for Last 24 Hours 11/15/23 11/16/23 11/17/23 23:59 23:59 23:59 Intake Total 1550 / 1650 100 / 400 550 / 550 Output Total 200 / 200 Balance 1350 / 1450 100 / 400 550 / 550 Lab / Micro Data 11/15/23 06:34 11/15/23 06:34 Labs: Laboratory Results - last 24 hr 11/16/23 11:42: POC Glucose 248 H 11/16/23 16:51: POC Glucose 199 H 11/16/23 21:38: POC Glucose 186 H 11/17/23 06:18: POC Glucose 151 H Physical Exam Narrative alert, oriented x3 and no apparent distress General Appearance: cooperative, well kempt and well developed Orientation / Consciousness: awake, oriented to person, oriented to place and oriented to time HEENT normocephalic, head/scalp atraumatic and moist oral mucous membranes Eyes PERRL, EOMs intact bilaterally and conjunctivae normal Neck supple, no JVD, thyroid normal and no carotid bruits General: trachea midline Resp normal respiratory effort, no retractions, no use of accessory muscles and clear to auscultation bilaterally Auscultation: Negative for rales, rhonchi or wheezes Cardio regular rate, regular rhythm, S1 normal heart sound, S2 normal heart sound, no murmurs, no rub and no gallops GI normal to inspection, nondistended, normoactive bowel sounds, soft to palpation, non-tender and non-distended Extremity no clubbing, cyanosis or edema Skin no rashes or lesions noted General Skin Exam: no breakdown Neuro oriented x3, CN's II-XII intact bilaterally, moves all extremities, no focal motor deficits and no sensory deficits noted Sensorium / Orientation: awake and alert Speech: speech normal Psych affect normal HEENT normocephalic, head/scalp atraumatic and moist oral mucous membranes Eyes PERRL, EOMs intact bilaterally and conjunctivae normal Neck no lymphadenopathy, supple, no JVD, thyroid normal and no carotid bruits General: trachea midline Resp normal respiratory effort, no retractions, no use of accessory muscles and clear to auscultation bilaterally Auscultation: Negative for rales, rhonchi or wheezes Cardio regular rate, regular rhythm, S1 normal heart sound, S2 normal heart sound, no murmurs, no rub and no gallops GI normal to inspection, nondistended, normoactive bowel sounds, soft to palpation, non-tender and non-distended Extremity normal to inspection and no clubbing, cyanosis or edema Extremity Narrative: Pain present over left, left transmetatarsal amputation Skin no rashes or lesions noted General Skin Exam: no breakdown Neuro oriented x3, CN's II-XII intact bilaterally, moves all extremities, no focal motor deficits and no sensory deficits noted Sensorium / Orientation: awake and alert Speech: speech normal Psych affect normal Assessment & Plan Assessment/Plan (1) Debility: PLAN: Plan 1. Acute on chronic debility secondary to multiple medical problems including coronary artery disease, cardiomyopathy, type 2 diabetes, and peripheral vascular disease-patient will continue with PT and OT, anticipate placement in a long term facility for short-term rehab services. #2 cardiomyopathy-complicates care, management, recovery, and prognosis #3 coronary artery disease-this appears to be stable at this time, patient will remain on her current medications #4 type 2 diabetes-patient's blood sugars will be monitored, sliding scale insulin will be given as indicated #5 peripheral vascular disease-complicates care, management, recovery, and prognosis #6 essential hypertension-patient's blood pressure medications will be adjusted as needed Total clinical time spent by myself addressing the patient's medical issues, reviewing all of her data, and collaborating with patient's care team: 25 minutes Charges/Coding Visit Charges Inpatient E&M: 82449 Subs Hosp L1
[2023-11-17] MEDS: Insulin Lispro 100 UNIT/ML INSULN.PEN SC ×2 (11:05→16:02)
[2023-11-17 11:25] LABS: Bedside Glucose 235 mg/dL (74-106)
[2023-11-17 16:21] LABS: Bedside Glucose 224 mg/dL (74-106)
[2023-11-17] MEDS: Atorvastatin Calcium 80 MG Tablet PO (21:54)
[2023-11-18] VITALS (8 sets, daily range): BP systolic 84–138; BP diastolic 42–74; PULSE 80–97; RESP 16–18; TEMP 36.1–37.1; O2SAT 92–97
[2023-11-18 00:25] LABS: Bedside Glucose 246 mg/dL (74-106)
[2023-11-18] MEDS: Gabapentin 300 MG Capsule PO ×3 (06:51→22:20)
[2023-11-18] MEDS: Baclofen 10 MG Tablet 5 MG PO ×3 (06:51→22:18)
[2023-11-18] MEDS: Insulin Lispro 100 UNIT/ML INSULN.PEN SC ×3 (06:54→16:25)
[2023-11-18 07:14] LABS: Bedside Glucose 268 mg/dL (74-106)
[2023-11-18] MEDS: Ondansetron ODT 4 MG Tablet PO ×2 (07:48→16:29)
[2023-11-18] MEDS: Pantoprazole Sodium 40 MG Tablet PO (09:42)
[2023-11-18] MEDS: Cholecalciferol (VIT D3) 25 MCG TABLET (1,000 UNITS) PO (09:42)
[2023-11-18] MEDS: SACUBITRIL/VALSARTAN 24/26 MG TABLET 1 EACH PO ×2 (09:42→22:18)
[2023-11-18] MEDS: Calcium (Elemental) 500 MG Tablet PO (09:42)
[2023-11-18] MEDS: Furosemide 40 MG Tablet PO ×2 (09:43→16:29)
[2023-11-18] MEDS: Aspirin 81 MG TAB.CHEW PO (09:43)
[2023-11-18] MEDS: Carvedilol 12.5 MG Tablet PO ×2 (09:43→16:29)
[2023-11-18] MEDS: Insulin Glargine-YFGN 100 UNIT/ML Pen 20 UNIT SC ×2 (09:43→22:27)
[2023-11-18] MEDS: Nystatin Powder 15gm Bottle 1 APPLIC TOPICAL ×2 (09:45→22:30)
[2023-11-18] MEDS: Spironolactone 50 MG Tablet PO (09:45)
[2023-11-18] MEDS: Clopidogrel Bisulfate 75 MG Tablet PO (09:46)
[2023-11-18] MEDS: Escitalopram Oxalate 10 MG Tablet PO (09:46)
[2023-11-18] MEDS: Acetaminophen 325 MG Tablet 650 MG PO ×2 (09:59→22:19)
[2023-11-18 10:08] LABS: Bedside Glucose 229 mg/dL (74-106)
[2023-11-18 12:09] LABS: Bedside Glucose 213 mg/dL (74-106)
[2023-11-18] MEDS: Docusate Sodium 100 MG Capsule PO (14:01)
--- NOTE | 2023-11-18 14:52 | PCM.PN.HOSP ---
Reason for Visit Reason for Visit: Diagnoses Other malaise (11/14/23) Personal history of other diseases of the circulatory system (11/14/23) Subjective Subjective Patient was seen and examined today, she states she does not feel well today-she feels nauseated but otherwise has no complaints. Objective Data Objective Data Vital Signs: Vital Signs Temp Pulse Resp BP Pulse Ox O2 Del Method 98.2 F 80 16 95/58 L 95 Room Air 11/18/23 13:52 11/18/23 13:53 11/18/23 13:52 11/18/23 13:52 11/18/23 13:52 11/18/23 13:53 Oxygen Delivery Method Room Air Weight: 77.564 kg Body Mass Index (BMI) 26.7 Intake & Output: Intake and Output for Last 24 Hours 11/16/23 11/17/23 11/18/23 23:59 23:59 23:59 Intake Total 100 / 400 1750 / 1750 Balance 100 / 400 1750 / 1750 Lab / Micro Data 11/15/23 06:34 11/15/23 06:34 Labs: Laboratory Results - last 24 hr 11/17/23 16:00: POC Glucose 224 H 11/17/23 21:49: POC Glucose 246 H 11/18/23 06:54: POC Glucose 268 H 11/18/23 09:40: POC Glucose 229 H 11/18/23 11:24: POC Glucose 213 H Physical Exam Narrative alert, oriented x3 and no apparent distress General Appearance: cooperative, well kempt and well developed Orientation / Consciousness: awake, oriented to person, oriented to place and oriented to time HEENT normocephalic, head/scalp atraumatic and moist oral mucous membranes Eyes PERRL, EOMs intact bilaterally and conjunctivae normal Neck supple, no JVD, thyroid normal and no carotid bruits General: trachea midline Resp normal respiratory effort, no retractions, no use of accessory muscles and clear to auscultation bilaterally Auscultation: Negative for rales, rhonchi or wheezes Cardio regular rate, regular rhythm, S1 normal heart sound, S2 normal heart sound, no murmurs, no rub and no gallops GI normal to inspection, nondistended, normoactive bowel sounds, soft to palpation, non-tender and non-distended Extremity no clubbing, cyanosis or edema Skin no rashes or lesions noted General Skin Exam: no breakdown Neuro oriented x3, CN's II-XII intact bilaterally, moves all extremities, no focal motor deficits and no sensory deficits noted Sensorium / Orientation: awake and alert Speech: speech normal Psych affect normal Assessment & Plan Assessment/Plan (1) Debility: PLAN: Plan 1. Acute on chronic debility secondary to multiple medical problems including coronary artery disease, cardiomyopathy, type 2 diabetes, and peripheral vascular disease-patient will continue with PT and OT, anticipate placement in a [place] [facility] facility for short-term rehab services. #2 cardiomyopathy-complicates care, management, recovery, and prognosis #3 coronary artery disease-this appears to be stable at this time, patient will remain on her current medications #4 type 2 diabetes-patient's blood sugars will be monitored, sliding scale insulin will be given as indicated #5 peripheral vascular disease-complicates care, management, recovery, and prognosis #6 essential hypertension-patient's blood pressure medications will be adjusted as needed Total clinical time spent by myself addressing the patient's medical issues, reviewing all of her data, and collaborating with patient's care team: 25 minutes Charges/Coding Visit Charges Inpatient E&M: 40895 Subs Hosp L1
[2023-11-18 16:40] LABS: Bedside Glucose 259 mg/dL (74-106)
[2023-11-18] MEDS: oxyCODONE 5 MG Tablet PO (22:20)
[2023-11-18] MEDS: Atorvastatin Calcium 80 MG Tablet PO (22:26)
[2023-11-18] MEDS: Menthol/Lanolin/Calamine/Znox 113 GM Tube 1 APPLIC TOPICAL (22:29)
[2023-11-18 23:52] LABS: Bedside Glucose 203 mg/dL (74-106)
[2023-11-19 06:11] VITALS: BP 85/52; PULSE 80; RESP 18; TEMP 36.5; O2SAT 94
[2023-11-19] MEDS: Ondansetron ODT 4 MG Tablet PO (06:21)
[2023-11-19] MEDS: Insulin Lispro 100 UNIT/ML INSULN.PEN SC ×2 (06:24→11:14)
[2023-11-19 07:20] LABS: Bedside Glucose 187 mg/dL (74-106)
[2023-11-19 08:54] VITALS: BP 111/80; PULSE 82; RESP 18; TEMP 36.4; O2SAT 98
[2023-11-19] MEDS: Insulin Glargine-YFGN 100 UNIT/ML Pen 20 UNIT SC (09:00)
[2023-11-19] MEDS: Gabapentin 300 MG Capsule PO (09:01)
[2023-11-19] MEDS: Calcium (Elemental) 500 MG Tablet PO (09:01)
[2023-11-19] MEDS: Pantoprazole Sodium 40 MG Tablet PO (09:01)
[2023-11-19] MEDS: Clopidogrel Bisulfate 75 MG Tablet PO (09:01)
[2023-11-19] MEDS: Cholecalciferol (VIT D3) 25 MCG TABLET (1,000 UNITS) PO (09:01)
[2023-11-19] MEDS: Aspirin 81 MG TAB.CHEW PO (09:01)
[2023-11-19] MEDS: Furosemide 40 MG Tablet PO (09:02)
[2023-11-19] MEDS: Nystatin Powder 15gm Bottle 1 APPLIC TOPICAL (09:02)
[2023-11-19] MEDS: Escitalopram Oxalate 10 MG Tablet PO (09:02)
[2023-11-19] MEDS: Menthol/Lanolin/Calamine/Znox 113 GM Tube 1 APPLIC TOPICAL (09:02)
--- NOTE | 2023-11-19 11:31 | CASEMGMT ---
Discharge Planning [facility] has obtained auth. SW updated. Arelis Ngo DC Planning Asst.
[2023-11-19] MEDS: Loperamide 2 MG Capsule 4 MG PO (11:39)
[2023-11-19 11:46] LABS: Bedside Glucose 208 mg/dL (74-106)
--- NOTE | 2023-11-19 11:57 | CASEMGMT ---
Addendum entered by Fallon Lee 11/19/23 12:06: Social Work- KIKE advised pt that insurance did authorize [facility] and was notified. SANDRA Duncan Original Note: WorkRamila STOKES updated pt that we are still awaiting precert. Pt reports she is doing well and is looking forward to returning to [facility]. SANDRA Duncan
--- NOTE | 2023-11-19 12:14 | PCM.TXEXTCAR ---
Diet Diet Order/Speech Therapy: 11/14/23 16:46 Diet: Cardiac - ADA 1800 Food consistency:: Regular Liquid Consistency:: Regular/Thin Routine Orders/Code Status Routine Lab Work: - (Fingerstick blood sugars AC nightly, coverage with Humalog subcu: 200-250: 5 units, 251-300: 8 units, 301-350: 12 units) Code Status: Full Code Wound(s) right hip: Wound Type: Surgical Incision Therapies Weight Bearing: Full weight bearing Physical Therapy: Eval and Treat Occupational Therapy: Eval and Treat Problem/Diagnosis (1) Debility: Status: Acute Code(s): R53.81 - Other malaise (2) Chronic pain: Status: Chronic Code(s): G89.29 - Other chronic pain Plan 1. Acute on chronic debility secondary to multiple medical problems including coronary artery disease, cardiomyopathy, type 2 diabetes, and peripheral vascular disease-patient will continue with PT and OT, anticipate placement in a detention facility for short-term rehab services. #2 cardiomyopathy-complicates care, management, recovery, and prognosis #3 coronary artery disease-this appears to be stable at this time, patient will remain on her current medications #4 type 2 diabetes-patient's blood sugars will be monitored, sliding scale insulin will be given as indicated #5 peripheral vascular disease-complicates care, management, recovery, and prognosis #6 essential hypertension-patient's blood pressure medications will be adjusted as needed Total clinical time spent by myself addressing the patient's medical issues, reviewing all of her data, and collaborating with patient's care team: 25 minutes Allergies/Procedures Done in Hospital Allergies latex Allergy (Verified 11/14/23 13:56) Hives Procedures: None Type of Care/Length of Stay Estimated LOS: Convalescent Care Less Than 30 days Type of Care Needed: Skilled Rehab Potential: Fair Prognosis: Fair Additional Orders/Day of Discharge Additional Orders: Please have pt follow up w/mental health services while at SNF H&P will serve as current which was dated: 11/14/23 Day of Discharge: 11/19/23 Discharge Plan Admission Admit Date/Time: 11/14/23 15:52 Primary Reason for Your Visit: Debility Attending Provider: All Rosenberg [facility] Providers: De La Vega,[place]ty[place] Discharge Orders/Prescriptions Prescriptions: New calcium carbonate [Oyster Shell Calcium 500] 500 mg calcium (1,250 mg) Tablet 500 mg PO DAILYCM Qty: 0 0RF baclofen 10 mg Tablet 5 mg PO TID PRN (Reason: Muscle Spasm) Qty: 0 0RF carvedilol 12.5 mg Tablet 12.5 mg PO BIDCM Qty: 0 0RF loperamide 2 mg Capsule 4 mg PO Q6H PRN PRN (Reason: DIARRHEA) Qty: 0 0RF docusate sodium 100 mg Capsule 100 mg PO BID PRN PRN (Reason: Constipation) Qty: 1 0RF gabapentin 300 mg Capsule 300 mg PO BIDCM Qty: 0 0RF menthol-zinc oxide [Calmoseptine] 0.44-20.6 % Ointment 1 applic topical BID Qty: 0 0RF Protocol: *Topical Application Instructions APPLICATION INSTRUCTIONS: apply to coccyx insulin glargine-yfgn 100 unit/mL (3 mL) Insulin Pen 20 unit subcut BID Qty: 0 0RF nystatin [Nyamyc] 100,000 unit/gram Powder 1 applic topical BID Qty: 0 0RF Protocol: *Topical Application Instructions APPLICATION INSTRUCTIONS: under right breast spironolactone 50 mg Tablet 50 mg PO DAILY Qty: 0 0RF simethicone 80 mg Tablet,Chewable 80 mg PO 4X/DAY PRN (Reason: GAS/ ABDOMINAL DISTENSION) Qty: 0 0RF oxycodone 5 mg Tablet 5 mg PO Q6H PRN PRN (Reason: Pain Score 4-10) 3 Days Qty: 7 0RF Continued pantoprazole 40 mg tablet,delayed release (DR/EC) 40 mg PO DAILY cholecalciferol (vitamin D3) 25 mcg (1,000 unit) tablet 1,000 unit PO DAILY Patient Comments: TAKE 1 TABLET DAILY aspirin 81 mg Capsule 81 mg PO DAILY nicotine 21 mg/24 hr Patch 24 Hour 21 mg transdermal DAILY Qty: 30 0RF clopidogrel 75 mg Tablet 75 mg PO DAILY Qty: 30 0RF Patient Comments: patient stated pretty sure I still take that atorvastatin 80 mg tablet 80 mg PO DAILY Qty: 30 0RF escitalopram oxalate [Lexapro] 10 mg tablet 10 mg PO DAILY Qty: 30 0RF Entresto 24-26 mg Tablet 1 tab PO BID 30 Days Qty: 60 0RF furosemide 40 mg Tablet 40 mg PO BIDLX Qty: 60 0RF midodrine 2.5 mg tablet 2.5 mg PO BID Discontinued carvedilol 12.5 mg Tablet 12.5 mg PO BIDCM Qty: 60 0RF gabapentin 300 mg capsule 300 mg PO TID Qty: 90 0RF Rx Instructions: Take 300 mg tablet only twice a day for the first 3 days then you may continue through 100 mg 3 times a day for the remainder of the prescription carvedilol 3.125 mg tablet 3.125 mg PO BID spironolactone 25 mg tablet 12.5 mg PO DAILY insulin glargine [Lantus Solostar U-100 Insulin] 100 unit/mL (3 mL) insulin pen subcut insulin lispro 100 unit/mL insulin pen See Rx Instructions subcut .ac Rx Instructions: see rx instructions subcutaneously AC; sliding scale 180-200 2 units 201-250 3 units 251-300 4 units 301-350 5 units 350-400 6 units 401-450 7 units dapagliflozin propanediol [Farxiga] 10 mg tablet 10 mg PO DAILY Qty: 90 3RF Patient Comments: patient stated I know I am supposed to be taking this one but I never got a notification from the pharmacy to come pick it up Referrals / Follow Up: [facility],Ama Neff [Primary Care Provider] - Disposition Disposition (needs filled in before D/C Order can be placed): Senior Living Facility
--- NOTE | 2023-11-19 12:54 | DS.PCM_ITS ---
Providers Date of Admission: 11/14/23 Date of Discharge: 11/19/23 Primary Care Physician: Ama [facility] Reason For Visit: FAILURE TO THRIVE Diagnosis Discharge Diagnosis (1) Debility: Status: Acute Code(s): R53.81 - Other malaise (2) Chronic pain: Status: Chronic Code(s): G89.29 - Other chronic pain Plan 1. Acute on chronic debility secondary to multiple medical problems including coronary artery disease, cardiomyopathy, type 2 diabetes, and peripheral vascular disease-patient will continue with PT and OT, anticipate placement in a correction facility for short-term rehab services. #2 cardiomyopathy-complicates care, management, recovery, and prognosis #3 coronary artery disease-this appears to be stable at this time, patient will remain on her current medications #4 type 2 diabetes-patient's blood sugars will be monitored, sliding scale insulin will be given as indicated #5 peripheral vascular disease-complicates care, management, recovery, and prognosis #6 essential hypertension-patient's blood pressure medications will be adjusted as needed Total clinical time spent by myself addressing the patient's medical issues, reviewing all of her data, and collaborating with patient's care team: 25 minutes Medications at Discharge Home Medications cholecalciferol (vitamin D3) 25 mcg (1,000 unit) tablet 1,000 unit PO DAILY vitamin 07/25/22 aspirin 81 mg capsule 81 mg PO DAILY heart health 08/10/22 nicotine 21 mg/24 hr daily transdermal patch 21 mg transdermal DAILY stop smoking #30 ea 09/02/22 atorvastatin 80 mg tablet 80 mg PO DAILY cholesterol #30 tabs 02/03/23 clopidogrel 75 mg tablet 75 mg PO DAILY anti platelet #30 tabs 02/03/23 escitalopram oxalate 10 mg tablet (Lexapro) 10 mg PO DAILY mental health #30 tabs 02/03/23 pantoprazole 40 mg tablet,delayed release 40 mg PO DAILY reflux 04/18/23 furosemide 40 mg tablet 40 mg PO BIDLX #60 tabs 05/07/23 sacubitril 24 mg-valsartan 26 mg tablet (Entresto) 1 tab PO BID 30 days #60 tabs 05/07/23 midodrine 2.5 mg tablet 2.5 mg PO BID 11/14/23 baclofen 10 mg tablet 5 mg (1/2 x 10 mg) PO TID PRN Muscle Spasm #0 tabs 11/19/23 calcium carbonate (Oyster Shell Calcium 500) 500 mg PO DAILYCM #0 tabs 11/19/23 carvedilol 12.5 mg tablet 12.5 mg PO BIDCM #0 tabs 11/19/23 docusate sodium 100 mg capsule 100 mg PO BID PRN PRN Constipation #1 cap 11/19/23 gabapentin 300 mg capsule 300 mg PO BIDCM #0 caps 11/19/23 insulin glargine-yfgn 100 unit/mL (3 mL) subcutaneous pen 20 unit (0.2 mL) subcut BID #0 mL 11/19/23 loperamide 2 mg capsule 4 mg (2 x 2 mg) PO Q6H PRN PRN DIARRHEA #0 caps 11/19/23 menthol 0.44 %-zinc oxide 20.6 % topical ointment (Calmoseptine) 1 applic topical BID #0 grams 11/19/23 nystatin 100,000 unit/gram topical powder (Nyamyc) 1 applic topical BID #0 grams 11/19/23 oxycodone 5 mg tablet 5 mg PO Q6H PRN PRN Pain Score 4-10 3 days #7 tabs 11/19/23 simethicone 80 mg chewable tablet 80 mg PO 4X/DAY PRN GAS/ ABDOMINAL DISTENSION #0 tabs 11/19/23 spironolactone 50 mg tablet 50 mg PO DAILY #0 tabs 11/19/23 Hospital Course Operations None Procedures None Summary of Care Provided Minutes Spent on Discharge: 31 Hospital Course: This 53-year-old white female was seen in the emergency room at [facility] with complaints of inability to care for self at home and perform ADLs. She had been discharged from nursing facility approximately 12 days and had experienced increased weakness, difficulty ambulating, and performing ADLs. Patient lives with her 20-year-old daughter who is not able to take care of her adequately. Labs were remarkable for an elevated glucose at 274 otherwise labs are unremarkable. Patient was placed in observation status on MedSurg 3, she was seen by PT and OT and arrangements were made for the patient to go to an extended care facility for inpatient rehab services. On 11/19/2023, patient was seen and examined: On examination she appeared in good health and spirits, she does not appear to be in any distress. Vital signs as documented. Skin warm and dry and without overt rashes. Neck without JVD, thyroid appears normal, trachea is midline, neck is supple. Lungs clear, normal air movement was noted. Heart exam notable for regular rhythm, normal sounds and absence of murmurs, rubs or gallops. Abdomen unremarkable and without evidence of organomegaly, masses, or abdominal aortic enlargement, bowel sounds are present in all 4 quadrants, no abdominal tenderness was noted. Extremities nonedematous, no cyanosis was noted, no clubbing was noted. Neuro: Cranial nerves II through XII are grossly intact, no focal motor deficits were noted, sensation to light touch and pinprick is intact, motor exam 5/5 throughout. Psych: Patient is alert and oriented x3, she does not appear anxious or depressed, she does not appear agitated. On 11/19/2023, patient was stable for discharge to an extended care facility for inpatient rehab services Weight / BMI Weight Weight: 77.564 kg Body Mass Index (BMI) 26.7 ABG / Lab / Microbiology Data 11/15/23 06:34 11/15/23 06:34 Laboratory: Laboratory Results - last 24 hr 11/18/23 16:21: POC Glucose 259 H 11/18/23 22:24: POC Glucose 203 H 11/19/23 06:23: POC Glucose 187 H 11/19/23 11:12: POC Glucose 208 H Meaningful Use Info Meaningful Use Meaningful Use Diagnoses (Choose all that apply): None applicable Ischemic Stroke Statin Dosing Therapy Reference: STATIN DOSE THERAPY REFERENCE: * Patients > 75 years receive moderate or high dose statin therapy. * Patients 75 years or YOUNGER should receive HIGH intensity statin dose unless contraindicated. You will be required to document reason for non-treatment if statin daily dose does not meet guidelines. HIGH DOSE STATIN THERAPY DAILY Atorvastatin > than or = to 40 mg Rosuvastatin > than or = to 20 mg Amlodipine + Atorvastatin > than or = to 2.5/40 mg Ezetimibe + Simvastatin 10/80 mg Simvastatin 80mg Discharge Plan Admission Admit Date/Time: 11/14/23 15:52 Primary Reason for Your Visit: Debility Attending Provider: All Rosenberg [facility] Providers: Mecca De La Vega Discharge Orders/Prescriptions Prescriptions: New calcium carbonate [Oyster Shell Calcium 500] 500 mg calcium (1,250 mg) Tablet 500 mg PO DAILYCM Qty: 0 0RF baclofen 10 mg Tablet 5 mg PO TID PRN (Reason: Muscle Spasm) Qty: 0 0RF carvedilol 12.5 mg Tablet 12.5 mg PO BIDCM Qty: 0 0RF loperamide 2 mg Capsule 4 mg PO Q6H PRN PRN (Reason: DIARRHEA) Qty: 0 0RF docusate sodium 100 mg Capsule 100 mg PO BID PRN PRN (Reason: Constipation) Qty: 1 0RF gabapentin 300 mg Capsule 300 mg PO BIDCM Qty: 0 0RF menthol-zinc oxide [Calmoseptine] 0.44-20.6 % Ointment 1 applic topical BID Qty: 0 0RF Protocol: *Topical Application Instructions APPLICATION INSTRUCTIONS: apply to coccyx insulin glargine-yfgn 100 unit/mL (3 mL) Insulin Pen 20 unit subcut BID Qty: 0 0RF nystatin [Nyamyc] 100,000 unit/gram Powder 1 applic topical BID Qty: 0 0RF Protocol: *Topical Application Instructions APPLICATION INSTRUCTIONS: under right breast spironolactone 50 mg Tablet 50 mg PO DAILY Qty: 0 0RF simethicone 80 mg Tablet,Chewable 80 mg PO 4X/DAY PRN (Reason: GAS/ ABDOMINAL DISTENSION) Qty: 0 0RF oxycodone 5 mg Tablet 5 mg PO Q6H PRN PRN (Reason: Pain Score 4-10) 3 Days Qty: 7 0RF Continued pantoprazole 40 mg tablet,delayed release (DR/EC) 40 mg PO DAILY cholecalciferol (vitamin D3) 25 mcg (1,000 unit) tablet 1,000 unit PO DAILY Patient Comments: TAKE 1 TABLET DAILY aspirin 81 mg Capsule 81 mg PO DAILY nicotine 21 mg/24 hr Patch 24 Hour 21 mg transdermal DAILY Qty: 30 0RF clopidogrel 75 mg Tablet 75 mg PO DAILY Qty: 30 0RF Patient Comments: patient stated pretty sure I still take that atorvastatin 80 mg tablet 80 mg PO DAILY Qty: 30 0RF escitalopram oxalate [Lexapro] 10 mg tablet 10 mg PO DAILY Qty: 30 0RF Entresto 24-26 mg Tablet 1 tab PO BID 30 Days Qty: 60 0RF furosemide 40 mg Tablet 40 mg PO BIDLX Qty: 60 0RF midodrine 2.5 mg tablet 2.5 mg PO BID Discontinued carvedilol 12.5 mg Tablet 12.5 mg PO BIDCM Qty: 60 0RF gabapentin 300 mg capsule 300 mg PO TID Qty: 90 0RF Rx Instructions: Take 300 mg tablet only twice a day for the first 3 days then you may continue through 100 mg 3 times a day for the remainder of the prescription carvedilol 3.125 mg tablet 3.125 mg PO BID spironolactone 25 mg tablet 12.5 mg PO DAILY insulin glargine [Lantus Solostar U-100 Insulin] 100 unit/mL (3 mL) insulin pen subcut insulin lispro 100 unit/mL insulin pen See Rx Instructions subcut .ac Rx Instructions: see rx instructions subcutaneously AC; sliding scale 180-200 2 units 201-250 3 units 251-300 4 units 301-350 5 units 350-400 6 units 401-450 7 units dapagliflozin propanediol [Farxiga] 10 mg tablet 10 mg PO DAILY Qty: 90 3RF Patient Comments: patient stated I know I am supposed to be taking this one but I never got a notification from the pharmacy to come pick it up Referrals / Follow Up: [facility],Ama Neff [Primary Care Provider] - Disposition Disposition (needs filled in before D/C Order can be placed): Alf Facility Charges/Coding Visit Charges Inpatient E&M: 47071 Disch Hosp >30min
--- NOTE | 2023-11-19 13:01 | PHA.DC_ITS ---
Pharmacy MA Med Reconciliation Pharmacy Service has performed discharge medication reconciliation for this patient. The patient's discharge medication list was reviewed for discrepancies and discrepancies were resolved. Medications at Discharge Home Medications cholecalciferol (vitamin D3) 25 mcg (1,000 unit) tablet 1,000 unit PO DAILY vitamin 07/25/22 aspirin 81 mg capsule 81 mg PO DAILY heart health 08/10/22 nicotine 21 mg/24 hr daily transdermal patch 21 mg transdermal DAILY stop smoki ng #30 ea 09/02/22 atorvastatin 80 mg tablet 80 mg PO DAILY cholesterol #30 tabs 02/03/23 clopidogrel 75 mg tablet 75 mg PO DAILY anti platelet #30 tabs 02/03/23 escitalopram oxalate 10 mg tablet (Lexapro) 10 mg PO DAILY mental health #30 tabs 02/03/23 pantoprazole 40 mg tablet,delayed release 40 mg PO DAILY reflux 04/18/23 furosemide 40 mg tablet 40 mg PO BIDLX #60 tabs 05/07/23 sacubitril 24 mg-valsartan 26 mg tablet (Entresto) 1 tab PO BID 30 days #60 tabs 05/07/23 midodrine 2.5 mg tablet 2.5 mg PO BID 11/14/23 baclofen 10 mg tablet 5 mg (1/2 x 10 mg) PO TID PRN Muscle Spasm #0 tabs 11/19/23 calcium carbonate (Oyster Shell Calcium 500) 500 mg PO DAILYCM #0 tabs 11/19/23 carvedilol 12.5 mg tablet 12.5 mg PO BIDCM #0 tabs 11/19/23 docusate sodium 100 mg capsule 100 mg PO BID PRN PRN Constipation #1 cap 11/19/23 gabapentin 300 mg capsule 300 mg PO BIDCM #0 caps 11/19/23 insulin glargine-yfgn 100 unit/mL (3 mL) subcutaneous pen 20 unit (0.2 mL) subcut BID #0 mL 11/19/23 loperamide 2 mg capsule 4 mg (2 x 2 mg) PO Q6H PRN PRN DIARRHEA #0 caps 11/19/23 menthol 0.44 %-zinc oxide 20.6 % topical ointment (Calmoseptine) 1 applic topical BID #0 grams 11/19/23 nystatin 100,000 unit/gram topical powder (Nyamyc) 1 applic topical BID #0 grams 11/19/23 oxycodone 5 mg tablet 5 mg PO Q6H PRN PRN Pain Score 4-10 3 days #7 tabs 11/19/23 simethicone 80 mg chewable tablet 80 mg PO 4X/DAY PRN GAS/ ABDOMINAL DISTENSION #0 tabs 11/19/23 spironolactone 50 mg tablet 50 mg PO DAILY #0 tabs 11/19/23
[2023-11-19] MEDS: oxyCODONE 5 MG Tablet PO (13:06)
[2023-11-19 13:38] VITALS: BP 103/67; PULSE 85; RESP 18; TEMP 36.2; O2SAT 98
--- NOTE | 2023-11-19 14:10 | CASEMGMT ---
Social Work Precert has been obtained.? Physician updated and pt is ready for discharge today.? PASSR completed in [facility] and sent along with discharge orders to [facility] via [facility].? Transportation arranged with Physician ambulance for 3:00PM pickup via wheelchair van.? SW met with pt and they are agreeable to discharge plan as stated above.? Bedside nurse notified of discharge time. Pt will call family. SANDRA Duncan
--- NOTE | 2023-11-19 14:27 | NURSING ---
Report called to the nurse at [facility] at [phone] Breanna, pt will be picked up at 15:00 today.
== END 2023-11-19 15:08 | disposition skilled nursing facility (03) ==
LOC: ED 15:07 → MS3 16:04
PROVIDERS: Admitting Provider Internal Medicine; Emergency Provider Emergency Medicine; Visit Provider Internal Medicine
DX: R62.7 Adult failure to thrive (principal); M06.9 Rheumatoid arthritis, unspecified; I11.0 Hypertensive heart disease with heart failure; I50.42 Chronic combined systolic (congestive) and diastolic (congestive) heart failure; E11.51 Type 2 diabetes mellitus with diabetic peripheral angiopathy without gangrene; Z79.4 Long term (current) use of insulin; G89.29 Other chronic pain; Z79.84 Long term (current) use of oral hypoglycemic drugs; Z96.641 Presence of right artificial hip joint; F41.9 Anxiety disorder, unspecified; Z79.82 Long term (current) use of aspirin; I25.10 Atherosclerotic heart disease of native coronary artery without angina pectoris; E87.1 Hypo-osmolality and hyponatremia; R53.81 Other malaise; K21.9 Gastro-esophageal reflux disease without esophagitis; M25.551 Pain in right hip; I25.5 Ischemic cardiomyopathy; E78.5 Hyperlipidemia, unspecified; F17.210 Nicotine dependence, cigarettes, uncomplicated; Z79.02 Long term (current) use of antithrombotics/antiplatelets; Z86.718 Personal history of other venous thrombosis and embolism; Z86.711 Personal history of pulmonary embolism; Z79.899 Other long term (current) drug therapy; S72.001D Fracture of unspecified part of neck of right femur, subsequent encounter for closed fracture with routine healing; X58.XXXD Exposure to other specified factors, subsequent encounter
CPT/HCPCS: 36415; 71045; 80048; 80053; 80307; 80320; 81001; 82248; 82962; 83735; 84100; 84443; 84484; 85025; 85610; 93005; 96360; 97110; 97162; 97166; 97530; 97535; 99221; 99284; J7030; J7050; A4216; G0378; G0480

== ENCOUNTER → 2023-11-20 | Outpatient (REF) | payer MEDICAID, SELFPAY ==
[2023-11-20 09:13] LABS: Vitamin D,25 Hydroxy 34.8 ng/mL
[2023-11-20 09:33] LABS: Hematocrit 40.8 % (37-47); Hemoglobin 12.9 g/dL (12.0-15.0); Mean Corp Hgb Conc 31.6 g/dL (32-36); Mean Corpuscular Hgb 26.8 pg (27.0-32.0); Mean Corpuscular Volume 84.8 fL (81-99); Mean Platelet Vol. 10.8 fl (6.2-12.0); Platelet Count 188 K/mm3 (150-450); RBC Distribution Width CV 13.9 % (11.6-14.6); RBC Distribution Width SD 43.3 fl (35.1-43.9); Red Blood Count 4.81 M/mm3 (4.2-5.4); White Blood Count 10.5 K/mm3 (4.4-11.0)
[2023-11-20 10:15] LABS: Anion Gap 10 (5-15); BUN 23 mg/dL (7-18); BUN/Creat Ratio 30.2 RATIO (10-20); Calcium,Total 9.7 mg/dL (8.5-10.1); Chloride 100 mmol/L (98-107); Cholesterol 119 mg/dL (200); Creatinine, Serum 0.76 mg/dL (0.55-1.02); EST Glomerular Filtration Rate 85 mL/min (>60); Est Glom Filt Rate - Afr Amer 103 mL/min (>60); Glucose 237 mg/dL (74-106); High Density Lipoprotein 34 mg/dL; Magnesium 2.1 mg/dL (1.6-2.6); Potassium 4.3 mmol/L (3.5-5.1); Sodium Level 136 mmol/L (136-145); Triglycerides 135 mg/dL; Very Low Density Lipoprotein 27 mg/dL (5-40)
== END | disposition home or self-care (01) ==
LOC: OLS.SW 05:00
PROVIDERS: Visit Provider Internal Medicine
DX: S72.141D Displaced intertrochanteric fracture of right femur, subsequent encounter for closed fracture with routine healing (principal); E11.65 Type 2 diabetes mellitus with hyperglycemia
CPT/HCPCS: 36415; 80048; 80061; 82306; 83036; 83735; 85027

== ENCOUNTER → 2023-12-10 | Outpatient (REF) | payer MEDICAID, SELFPAY ==
[2023-12-10 09:56] LABS: Hematocrit 38.3 % (37-47); Hemoglobin 12.3 g/dL (12.0-15.0); Mean Corp Hgb Conc 32.1 g/dL (32-36); Mean Corpuscular Hgb 27.2 pg (27.0-32.0); Mean Corpuscular Volume 84.5 fL (81-99); Mean Platelet Vol. 10.1 fl (6.2-12.0); Platelet Count 205 K/mm3 (150-450); RBC Distribution Width CV 13.7 % (11.6-14.6); RBC Distribution Width SD 42.4 fl (35.1-43.9); Red Blood Count 4.53 M/mm3 (4.2-5.4); White Blood Count 10.8 K/mm3 (4.4-11.0)
[2023-12-10 10:47] LABS: Anion Gap 8 (5-15); BUN 37 mg/dL (7-18); BUN/Creat Ratio 34.3 RATIO (10-20); Calcium,Total 9.5 mg/dL (8.5-10.1); Chloride 104 mmol/L (98-107); Creatinine, Serum 1.08 mg/dL (0.55-1.02); EST Glomerular Filtration Rate 57 mL/min (>60); Est Glom Filt Rate - Afr Amer 68 mL/min (>60); Glucose 143 mg/dL (74-106); Potassium 4.6 mmol/L (3.5-5.1); Sodium Level 138 mmol/L (136-145)
== END | disposition home or self-care (01) ==
LOC: OLS.SW 05:00
PROVIDERS: Visit Provider Internal Medicine
DX: I11.0 Hypertensive heart disease with heart failure (principal); I50.22 Chronic systolic (congestive) heart failure; I25.10 Atherosclerotic heart disease of native coronary artery without angina pectoris; E11.9 Type 2 diabetes mellitus without complications; E78.5 Hyperlipidemia, unspecified
CPT/HCPCS: 36415; 80048; 85027

== ENCOUNTER 2023-12-29 08:07 | Inpatient (IN) | payer MEDICAID, SELFPAY ==
[2023-12-29 08:08] VITALS: PULSE 102; RESP 18; TEMP 36.6; O2SAT 98; BMI 28.1
--- NOTE | 2023-12-29 09:09 | CT_ITS ---
EXAM: CT ABDOMEN AND PELVIS WITH INTRAVENOUS CONTRAST CLINICAL INDICATION: Abdominal Pain, Nausea and Vomiting, Diarrhea TECHNIQUE: Helically acquired images were obtained of the abdomen and pelvis with intravenous contrast. This CT exam was performed using one or more of the following dose reduction techniques: automated exposure control, adjustment of the mA and/or kV according to patient size, and/or use of iterative reconstruction technique. CONTRAST: IV 100mL [id number] COMPARISON: CT Abdomen Pelvis dated 09/11/2022 and 01/09/2015 FINDINGS: LOWER THORAX: Normal. Lung bases are clear. No cardiomegaly. No pericardial effusion. ABDOMEN: LIVER: Stable 16 mm lesion within hepatic segment 8 and stable 12 mm lesion within hepatic segment 5 suggestive of hemangiomata. GALLBLADDER AND BILE DUCTS: Cholecystectomy clips are in place. No intra- or extrahepatic biliary ductal dilation. PANCREAS: Normal. No focal cystic or solid mass. SPLEEN: Normal. Normal size without focal cystic or solid mass. ADRENALS: 2.5 cm stable right adrenal nodule and stable 2.0 cm left adrenal nodule. KIDNEYS AND URETERS: Simple appearing 2.4 cm cyst within the upper pole left kidney. No specific follow-up indicated. Normal renal size and position. No hydronephrosis. STOMACH AND BOWEL: Diffuse areas of wall thickening of the large bowel suggestive of colitis. Diverticulosis of the colon noted without evidence of acute diverticulitis. PELVIS: APPENDIX: Surgical clips at the base of the cecum consistent with appendectomy. BLADDER: Normal. REPRODUCTIVE: Unremarkable as visualized. No mass. ABDOMEN and PELVIS: INTRAPERITONEAL SPACE: Normal. No ascites or other fluid collection. No free air. BONES/JOINTS: Surgical fixation of intertrochanteric fracture of the right femur. Healing fracture of the right inferior pubic ramus. Fracture deformity of the superior endplate of L5 suggestive of acute or subacute fracture. Superior endplate deformity of L4 appears to be chronic in nature. SOFT TISSUES: Normal. No discrete abdominal or pelvic wall hernia. VASCULATURE: Normal. Abdominal aorta is non-dilated. LYMPH NODES: Normal. No enlarged lymph nodes. CT/Abdomen/Pelvis W IV Cont ONLY IMPRESSION: 1. Diffuse areas of large bowel wall thickening consistent with colitis. 2. Stable bilateral adrenal nodules. 3. Stable hepatic lesions suggestive of hemangiomata. 4. Acute/subacute fractures of L5 vertebral body, right inferior pubic ramus and proximal right femur. Electronically Signed: Jose Taylor MD at 12:12 EDT ,
--- NOTE | 2023-12-29 09:10 | ED.VIS.GI ---
HPI HPI - GI History of Present Illness Chief Complaint: Diarrhea Narrative Narrative: 53-year-old female past medical history of remote hip fracture, presents with nausea, vomiting, and diarrhea that she has had for the last 3 hours. She states that yesterday she began having diffuse abdominal pain with nausea and vomiting along with diarrhea did not start until today. She states she has had too many episodes to count but denies any blood in her emesis or stool. She relates history that she broke her hip during , went to [facility], had her hip fixed and then had to go to a senior living facility for rehab. She spent a month or so there, was home for a few weeks, but had to return. She was recently released from [facility] on Sunday of this week, 4 days ago. She is complaining of pain in her hip, and abdominal pain [facility] Medical History On home oxygen therapy Rheumatoid arthritis Sleep apnea Smoker DVT (deep venous thrombosis) Seizures Amputation toe Psychiatric disorder Ischemic cardiomyopathy Diabetes type 2, uncontrolled Essential hypertension Substance abuse Alcohol abuse Depression Osteoporosis GERD (gastroesophageal reflux disease) Pulmonary embolism Myocardial infarct Pericardial effusion Hypoxemia Acute dyspnea Aftercare following surgery of the circulatory system Hx of fracture of humerus Toe amputee Hyperlipidemia CHF (congestive heart failure) CAD (coronary artery disease), [place] coronary artery Home Medications ?Medication ?Instructions ?Recorded ?Last Taken ?Type aspirin 81 mg capsule 81 mg PO DAILY heart health 08/10/22 02/01/23 History clopidogrel 75 mg tablet 75 mg PO DAILY anti platelet #02/03/23 Unknown Rx tabs escitalopram oxalate 10 mg tablet 10 mg PO DAILY mental health #30 02/03/23 Unknown Rx (Lexapro) tabs pantoprazole 40 mg tablet,delayed 40 mg PO DAILY reflux 04/18/23 Unknown History release sacubitril 24 mg-valsartan 26 mg 1 tab PO BID 30 days #60 tabs 05/07/23 Unknown Rx tablet (Entresto) midodrine 2.5 mg tablet 2.5 mg PO BID 11/14/23 Unknown History atorvastatin 80 mg tablet 80 mg PO QHS cholesterol 12/29/23 Unknown History carvedilol 3.125 mg tablet 3.125 mg PO BID blood pressure 12/29/23 Unknown History cholecalciferol (vitamin D3) 50,000 unit PO QWEEK 12/29/23 Unknown History dapagliflozin propanediol 10 mg 10 mg PO DAILY 12/29/23 Unknown History tablet (Farxiga) furosemide 40 mg tablet 40 mg PO DAILY 12/29/23 Unknown History gabapentin 300 mg capsule 300 mg PO TID 12/29/23 Unknown History insulin glargine 100 unit/mL (3 24 unit subcut QPM 12/29/23 Unknown History mL) subcutaneous pen (Lantus Solostar U-100 Insulin) insulin glargine 100 unit/mL (3 40 unit subcut DAILY 12/29/23 Unknown History mL) subcutaneous pen (Lantus Solostar U-100 Insulin) insulin lispro 100 unit/mL subcut 12/29/23 Unknown History subcutaneous half-unit pen spironolactone 25 mg tablet 12.5 mg PO DAILY 12/29/23 Unknown History Allergy/AdvReac Type Severity Reaction Status Date / Time latex Allergy Hives Verified 12/29/23 08:11 Family History Mother Thyroid disorder Diabetes Hypertension Grandmother Diabetes Uncle Diabetes Aunt Diabetes Other Heart disease Surgical History History of cholecystectomy History of appendectomy History of cholecystectomy Social History (Updated 12/29/23 @ 14:[address] Rosaura Crane MD) household members: spouse and children housing: house Smoking Status: Current every day smoker tobacco type: cigarettes Smoking packs per day: 0.5 Smoking cigarettes per day: 10.0 alcohol intake: never substance use type: marijuana what type of physical activity do you participate in: none do you feel safe at home: Yes ROS ROS ED ROS Narrative Constitutional: No fever, no chills. HEENT: No sore throat. No neck pain. No loss of vision. No rhinorrhea. Cardiovascular: No chest pain. No palpitations. No pedal edema. Respiratory: No cough, no shortness of breath. Abdominal: Diffuse abdominal pain. Reported multiple episodes of nausea, vomiting, and diarrhea, too many for the patient to count. Denies GI bleeding. Genitourinary: No dysuria. No hematuria. Musculoskeletal: No myalgias. Positive hip pain/arthralgias. Neurologic: No headaches. No dizziness. No lightheadedness. Skin: No rash. No change in color. Psychiatric: No depression. No anxiety. EXAM Physical Exam Narrative Exam Narrative: Afebrile. Vital signs noted. HEENT: Normocephalic. Atraumatic. PERRL, EOMI. Neck soft and supple. No point tenderness or step off. Cardiovascular: Regular rate and rhythm with intermittent tachycardia. No murmurs, rubs, or gallops appreciated. Respiratory: No tachypnea. Lungs clear to auscultation bilaterally. Gastrointestinal: Abdomen soft, diffuse tenderness with normoactive bowel sounds. No rebound or guarding. Neurological: Awake. Alert. Nonfocal, nonlateralizing. Skin: No rash. Normal color. No pallor. Musculoskeletal: No pedal edema. Full range of motion extremities. Const Vital Signs: 12/29/23 08:08 12/29/23 10:07 12/29/23 12:00 Temperature 97.8 F Temperature Source Temporal Pulse Rate 102 H 92 126 H Respiratory Rate 18 18 18 Blood Pressure 138/74 H 168/107 H Blood Pressure Mean 95 127 Pulse Ox 98 99 97 Oxygen Delivery Method Room Air Room Air Room Air 12/29/23 14:00 12/29/23 14:00 12/29/23 14:00 Temperature 98.3 F 98.3 F Temperature Source Temporal Pulse Rate 103 H 102 H 102 H Respiratory Rate 18 18 18 Blood Pressure 122/75 H 122/75 H 122/75 H Blood Pressure Mean 90 90 90 Pulse Ox 99 96 96 Oxygen Delivery Method Room Air Room Air MDM MDM MDM Narrative Medical decision making narrative: Differential diagnosis includes but not limited to gastroenteritis versus diverticulitis versus bowel obstruction. I reviewed her prior problem list that she has history of chronic pain. She is repetitive and asking for something for analgesia. She was administered morphine and ondansetron. I do feel CT imaging is indicated. I reviewed her laboratory work and she has normal white count 9.6, hemoglobin 13.9, hematocrit 41.5, platelet count 255. Sodium slightly low at 135 which I think is nonspecific, normal potassium of 3.8, glucose is elevated at 331 but she has a normal anion gap of 7 so I doubt diabetic ketoacidosis. LFTs show normal AST of 25 and ALT of 23, alk phos elevated at 142 which I also think is nonspecific, lipase of 38 so I doubt pancreatitis. Urinalysis obtained and reviewed and is negative for infection. I reviewed the radiology report of the CT of the abdomen and pelvis which shows diffuse areas of colitis and bowel wall thickening. Radiologist also comments on acute versus subacute fracture of the L5 vertebral body. They also comment on healing pubic ramus fracture, and the proximal femur fracture. Patient had stated that she had fallen at the senior living. She was started on ciprofloxacin and Flagyl intravenously. She did require 2 doses of morphine for her hip pain. I did repeat femur and pelvis/hip x-ray and interpreted them individually and independently and I see no evidence of a periprosthetic fracture or new acute fracture. She states that she is not doing well at home, and wants readmission to [facility]. I will discuss patient with the hospitalist, Dr. Rosaura Crane, for admission. She is in stable condition. History & Record Review Discussion w/independent historian: Patient Additional record(s) reviewed:: Prior ED visit and Prior labs Lab Data Attestation: I reviewed the patient's lab results. Labs: Laboratory Results - last 24 hr 12/29/23 12/29/23 09:35 12:20 WBC 9.6 RBC 5.11 Hgb 13.9 Hct 41.5 MCV 81.2 MCH 27.2 MCHC 33.5 RDW Std Deviation 39.4 RDW Coeff of Spencer 13.3 Plt Count 255 MPV 8.9 Immature Gran % (Auto) 0.200 Neut % (Auto) 80.7 H Lymph % (Auto) 12.6 L [place] % (Auto) 5.5 Eos % (Auto) 0.7 Baso % (Auto) 0.3 Absolute Neuts (auto) 7.7 Absolute Lymphs (auto) 1.21 Nucleated RBC % 0 Sodium 135 L Potassium 3.8 Chloride 101 Carbon Dioxide 27.0 Anion Gap 7 BUN 14 Creatinine 1.01 Estim Creat Clear Calc 71.55 Est GFR (MDRD) Af Amer 74 Est GFR (MDRD) Non-Af 61 BUN/Creatinine Ratio 13.9 Glucose 331 H Calcium 10.0 Total Bilirubin 1.30 H AST 25 ALT 23 Alkaline Phosphatase 142 H Total Protein 7.9 Albumin 3.2 Globulin 4.7 H Albumin/Globulin Ratio 0.7 L Lipase 38 Urine Color Yellow Urine Clarity Clear Urine pH 8.0 Ur Specific [place] 1.010 Urine Protein 100 H Urine Glucose (UA) 1000 H Urine Ketones Negative Urine Occult Blood 50 H Urine Nitrite Negative Urine Bilirubin Negative Urine Urobilinogen Normal Ur Leukocyte Esterase Negative Urine RBC 10-25 SEEN Urine WBC 0 SEEN Ur Squamous Epith Cells 0 SEEN Urine Bacteria 0 SEEN Urine Mucus 0 SEEN Ur Drug Screen Comment Radiography Diagnostic Testing: Clinical Impression(s) from Imaging Studies Abdomen/Pelvis CT 12/29/23 09:09 IMPRESSION: 1. Diffuse areas of large bowel wall thickening consistent with colitis. 2. Stable bilateral adrenal nodules. 3. Stable hepatic lesions suggestive of hemangiomata. 4. Acute/subacute fractures of L5 vertebral body, right inferior pubic ramus and proximal right femur. Electronically Signed: Jsoe Taylor MD at 12:12 EDT , Pelvis X-Ray 12/29/23 12:21 IMPRESSION: No fracture or malalignment. Electronically Signed: Dion Allen MD ([place]) at 13:26 EDT , Femur X-Ray 12/29/23 13:06 IMPRESSION: No acute fracture or malalignment. Postoperative changes in the proximal right femur with persistent IT fracture line. Electronically Signed: Dion Allen MD ([place]) at 13:23 EDT , Management Discussion w/another healthcare provider: Hospitalist (Dr. Rosaura Crane) Discharge Plan Dx/Rx/DC Orders Clinical Impression: Colitis, L5 vertebral fracture Disposition Disposition: Acute Care [facility]
[2023-12-29] MEDS: Ondansetron 4 MG/2 ML Vial IV ×2 (09:36→16:19)
[2023-12-29] MEDS: 0.9% Normal Saline (1000mL) 1,000 ML 999 ML IV (09:36)
[2023-12-29] MEDS: Morphine 4 MG/ML Syringe IV ×2 (09:36→12:32)
[2023-12-29 09:42] LABS: Absolute Lymphocyte Count 1.21 X10^3/uL (0.83-4.51); Absolute Neutrophil Count 7.7 X10^3/uL (2.0-7.7); Basophil# 0.03 X10^3/uL; Basophil% 0.3 % (0-1); Eosinophil# 0.07 X10^3/uL; Eosinophils% 0.7 % (0-5); Hematocrit 41.5 % (37-47); Hemoglobin 13.9 g/dL (12.0-15.0); Lymphocyte # 1.21 X10^3/ul (0.83-4.51); Lymphocyte % 12.6 % (19-41); Mean Corp Hgb Conc 33.5 g/dL (32-36); Mean Corpuscular Hgb 27.2 pg (27.0-32.0); Mean Corpuscular Volume 81.2 fL (81-99); Mean Platelet Vol. 8.9 fl (6.2-12.0); Monocyte# 0.53 X10^3/uL; Monocyte% 5.5 % (0-10); NRBC Flagged by Analyzer 0 % (0-5); Neutrophil # 7.74 X10^3/uL (2.7-7.7); Neutrophil % 80.7 % (47-70); Platelet Count 255 K/mm3 (150-450); RBC Distribution Width CV 13.3 % (11.6-14.6); RBC Distribution Width SD 39.4 fl (35.1-43.9); Red Blood Count 5.11 M/mm3 (4.2-5.4); White Blood Count 9.6 K/mm3 (4.4-11.0)
[2023-12-29 09:57] LABS: ALB/GLOB Ratio 0.7 RATIO (0.9-2.4); AST(SGOT) 25 U/L (15-37); Alanine Aminotransfer ALT/SGPT 23 U/L (13-56); Albumin, Serum 3.2 g/dL (3.2-5.0); Alkaline Phosphatase 142 U/L (45-117); Anion Gap 7 (5-15); BUN 14 mg/dL (7-18); BUN/Creat Ratio 13.9 RATIO (10-20); Chloride 101 mmol/L (98-107); Creatinine, Serum 1.01 mg/dL (0.55-1.02); EST Glomerular Filtration Rate 61 mL/min (>60); Est Glom Filt Rate - Afr Amer 74 mL/min (>60); Estimated Creatinine Clearance 71.55 ml/min; Globulin 4.7 g/dL (2.2-4.2); Glucose 331 mg/dL (74-106); Lipase 38 U/L (13-75); Potassium 3.8 mmol/L (3.5-5.1); Protein, Total 7.9 g/dL (6.4-8.2); Sodium Level 135 mmol/L (136-145)
[2023-12-29 10:07] VITALS: BP 138/74; PULSE 92; RESP 18; O2SAT 99
[2023-12-29] MEDS: Metoclopramide 10 MG/2 ML Vial 5 MG IV (11:00)
[2023-12-29 12:00] VITALS: BP 168/107; PULSE 126; RESP 18; O2SAT 97
--- NOTE | 2023-12-29 12:21 | RAD_ITS ---
STUDY: X-RAY - PELVIS REASON FOR EXAM: Female, 53 years old. TRAUMA TECHNIQUE: One view of the pelvis was obtained. COMPARISON: None. FINDINGS: There is a non-specific bowel gas pattern. Excreted contrast in the urinary tract. Vascular stent overlies the right pelvis. Normal bilateral iliac wings, sacroiliac joints and visualized sacrum. Normal visualized bilateral superior and inferior pubic rami. Normal pubic symphysis. Normal ischial tuberosities. Proximal femoral medullary carly and femoral neck fixation screw spanning intertrochanteric fracture. Normal visualized left femoral head. Normal left acetabulum. Normal left hip joint. RAD/Pelvis 1 or 2 Views IMPRESSION: No fracture or malalignment. Electronically Signed: Dion Allen MD ([place]) at 13:26 EDT ,
[2023-12-29 12:30] LABS: Bacteria 0 SEEN /hpf (None Seen); Mucous, Urine 0 SEEN /hpf (<or=2+); Squamous Epithelial Cells - UA 0 SEEN /hpf (5-10); White Blood Cells 0 SEEN /hpf (0-5)
[2023-12-29 12:32] LABS: Color, Urine Yellow (Yellow); Glucose, Dipstick 1000 mg/dl (Normal); Ketone-Dipstick Negative (Negative); Leukocyte Esterase-Dipstick Negative /ul (Negative); Nitrite-Dipstick Negative (Negative); Occult Blood-Urine 50 /ul (Negative); Protein-Dipstick 100 mg/dl (Negative); Urine Bilirubin Dipstick Negative (Negative); Urine Clarity Clear (Clear); Urine Urobilinogen Normal (Normal)
[2023-12-29 12:39] LABS: Red Blood Cells-Urine 10-25 SEEN /hpf (0-5)
--- NOTE | 2023-12-29 13:06 | RAD_ITS ---
STUDY: X-RAY - RIGHT FEMUR REASON FOR STUDY: Female, 53 years old. Right hip pain, fracture or this year TECHNIQUE: 2 view(s) of the femur. COMPARISON: None. FINDINGS: Proximal femoral medullary carly with distal interlocking screw and femoral neck fixation screw intertrochanteric fracture. Vascular stent overlies the pelvis. Excreted contrast in the urinary bladder. RAD/Femur Min 2 Views IMPRESSION: No acute fracture or malalignment. Postoperative changes in the proximal right femur with persistent IT fracture line. Electronically Signed: Dion Allen MD ([place]) at 13:23 EDT ,
[2023-12-29] MEDS: Ciprofloxacin 400 MG/200 ML BAG 200 MG IV (13:32)
[2023-12-29] MEDS: metroNIDAZOLE 500 MG/100 ML BAG 100 MG IV (13:43)
[2023-12-29 14:00] VITALS: BP 122/75; PULSE 102; PULSE 103; RESP 18; TEMP 36.8; O2SAT 96; O2SAT 99
--- NOTE | 2023-12-29 14:15 | HP.PCM.HOS_ITS ---
[facility] - [facility] Date of Admission: 12/29/23 Date of Service: 12/29/23 Chief Complaint: Adult FTT, Abdominal pain, N/V/D. HPI Narrative The patient is a 53 y/o F w/ PMHx: PAD, GWYN, Hx VTE (DVT, PE), HTN, HLD, Anxiety and Depression/Mood disorder, Tobacco use, Seizure disorder, Rheumatoid arthritis, Hx Polysubstance abuse/EtOH abuse, Diabetes mellitus type II, CAD, HFrEF, most recent discharge 11/19/2023 following treatment of acute on chronic debility, adult failure to thrive secondary to inability to care for her self transitioned to skilled facility at that time who now represents to the [facility] ED on 12/29/2023 with history of recent remote hip fracture with onset the day prior diffuse abdominal discomfort, cramping with nausea and emesis as well as loose stools which started over the last 12 hours with significant serial episodes prompting eventual ED evaluation. She notes that she had broken her hip over [facility] and at that time to transition to [facility] where they fixed her hip with transition to skilled facility and she has been there for approximately 1 month with then transition to home for a few weeks but required return given difficulty caring for herself but was now most recently discharged this week on Sunday of this week with abdominal/GI complaints and also ongoing discomfort to the hip. She does report that before she was discharged from her recent skilled facility stay she did have a mechanical fall with lumbar back discomfort following. She notes the morphine did help improve her abdominal discomfort some but she still is feeling nauseous and has an emesis bag reporting her abdominal discomfort 4-5 out of 10 in severity. Workup in the ED included T97.6, heart rate 102, BP 130/74, respiratory rate 18, 98% on room air, CBC with WC 9.6, human 13.9, platelets 255 without marked shift, CMP with sodium 135, glucose 331, T. bili 1.30, alk phos 142 otherwise hepatic profile not marked appearing, lipase 38, urinalysis with protein 100, glucose of thousand, negative nitrite, occult blood 50, leukocyte Estrace negative, urine RBCs 10-25 however no urine bacteria noted, CT abdomen and pelvis with diffuse areas of large bowel wall thickening consistent with colitis, stable bilateral adrenal nodules, stable hepatic lesions suggestive of hemangiomata, acute/subacute fractures of L5 vertebral body, right inferior pubic rami and proximal right femur, plain film of the pelvis with no fracture or malalignment, plain film of the right femur with no acute fracture or malalignment, postoperative changes in the proximal right femur with persistent IT fracture line. In the ED patient ministered Zofran 4 mg IV x 1, morphine 4 mg IV x 2, Reglan 5 mg IV x 1, 1 L normal saline, ciprofloxacin 40 mg IV x 1, Flagyl 500 mg IV x 1. [facility] Medical History On home oxygen therapy Rheumatoid arthritis Sleep apnea Smoker DVT (deep venous thrombosis) Seizures Amputation toe Psychiatric disorder Ischemic cardiomyopathy Diabetes type 2, uncontrolled Essential hypertension Substance abuse Alcohol abuse Depression Osteoporosis GERD (gastroesophageal reflux disease) Pulmonary embolism Myocardial infarct Pericardial effusion Hypoxemia Acute dyspnea Aftercare following surgery of the circulatory system Hx of fracture of humerus Toe amputee Hyperlipidemia CHF (congestive heart failure) CAD (coronary artery disease), [place] coronary artery Home Medications ?Medication ?Instructions ?Recorded ?Last Taken ?Type aspirin 81 mg capsule 81 mg PO DAILY heart health 08/10/22 02/01/23 History clopidogrel 75 mg tablet 75 mg PO DAILY anti platelet #30 02/03/23 Unknown Rx tabs escitalopram oxalate 10 mg tablet 10 mg PO DAILY mental health #30 02/03/23 Unknown Rx (Lexapro) tabs pantoprazole 40 mg tablet,delayed 40 mg PO DAILY reflux 04/18/23 Unknown History release sacubitril 24 mg-valsartan 26 mg 1 tab PO BID 30 days #60 tabs 05/07/23 Unknown Rx tablet (Entresto) midodrine 2.5 mg tablet 2.5 mg PO BID 11/14/23 Unknown History atorvastatin 80 mg tablet 80 mg PO QHS cholesterol 12/29/23 Unknown History carvedilol 3.125 mg tablet 3.125 mg PO BID blood pressure 12/29/23 Unknown History cholecalciferol (vitamin D3) 50,000 unit PO QWEEK 12/29/23 Unknown History dapagliflozin propanediol 10 mg 10 mg PO DAILY 12/29/23 Unknown History tablet (Farxiga) furosemide 40 mg tablet 40 mg PO DAILY 12/29/23 Unknown History gabapentin 300 mg capsule 300 mg PO TID 12/29/23 Unknown History insulin glargine 100 unit/mL (3 24 unit subcut QPM 12/29/23 Unknown History mL) subcutaneous pen (Lantus Solostar U-100 Insulin) insulin glargine 100 unit/mL (3 40 unit subcut DAILY 12/29/23 Unknown History mL) subcutaneous pen (Lantus Solostar U-100 Insulin) insulin lispro 100 unit/mL subcut 12/29/23 Unknown History subcutaneous half-unit pen spironolactone 25 mg tablet 12.5 mg PO DAILY 12/29/23 Unknown History Allergy/AdvReac Type Severity Reaction Status Date / Time latex Allergy Hives Verified 12/29/23 08:11 Family History Mother Thyroid disorder Diabetes Hypertension Grandmother Diabetes Uncle Diabetes Aunt Diabetes Other Heart disease Surgical History History of cholecystectomy History of appendectomy History of cholecystectomy Social History (Updated 12/29/23 @ 14:[address] Rosaura Crane MD) household members: spouse and children housing: house Smoking Status: Current every day smoker tobacco type: cigarettes Smoking packs per day: 0.5 Smoking cigarettes per day: 10.0 alcohol intake: never substance use type: marijuana what type of physical activity do you participate in: none do you feel safe at home: Yes ROS ROS Narrative Admission Review of Systems: CONSTITUTIONAL: No weight loss, fever, chills, +weakness or fatigue. HEENT: Eyes: No visual loss, blurred vision, double vision or yellow sclerae. Ears, Nose, Throat: No hearing loss, sneezing, congestion, runny nose or sore throat. SKIN: No rash or itching, lesions, wounds. CARDIOVASCULAR: No chest pain, chest pressure or chest discomfort, palpitations, edema, orthopnea, syncopal events. RESPIRATORY: No shortness of breath, cough or sputum, wheezing, hemoptysis. GASTROINTESTINAL: + anorexia, nausea, vomiting, diarrhea, abdominal pain. No melena, BRBPR. GENITOURINARY: No dysuria, frequency, urgency or retention. NEUROLOGICAL: No headache, dizziness, syncope, paralysis, ataxia, numbness or tingling in the extremities, focal weakness, change in bowel or bladder control, seizure. MUSCULOSKELETAL: + muscle, back pain, joint pain or stiffness. HEMATOLOGIC: No anemia. + Easy bleeding/bruising. LYMPHATICS: No enlarged nodes. No history of splenectomy. PSYCHIATRIC: + History of anxiety and depression/mood disorder. ENDOCRINOLOGIC: No reports of sweating, cold or heat intolerance. No polyuria or polydipsia. ALLERGIES: No history of asthma, hives, eczema or rhinitis. Vital Signs Vital Signs Vital Signs: 12/29/23 08:08 12/29/23 10:07 12/29/23 12:00 Temperature 97.8 F Temperature Source Temporal Pulse Rate 102 H 92 126 H Respiratory Rate 18 18 18 Blood Pressure 138/74 H 168/107 H Blood Pressure Mean 95 127 Pulse Ox 98 99 97 Oxygen Delivery Method Room Air Room Air Room Air 12/29/23 14:00 12/29/23 14:00 12/29/23 14:00 Temperature 98.3 F 98.3 F Temperature Source Temporal Pulse Rate 103 H 102 H 102 H Respiratory Rate 18 18 18 Blood Pressure 122/75 H 122/75 H 122/75 H Blood Pressure Mean 90 90 90 Pulse Ox 99 96 96 Oxygen Delivery Method Room Air Room Air Weight Weight: 179 lb 10.828 oz Body Mass Index (BMI) 28.1 Physical Exam Narrative Physical Examination: General: Awake, alert, oriented x 3 and cooperative, laying on her side in the ED bed, position, notes still having abdominal discomfort and nausea. Skin: Normal color, normal turgor, no icterus, no cyanosis except occasional staged ecchymoses, abrasion. HEENT: AT/NC, EOMI, PERRLA, dry MM, poor oral care, no carotid bruits or JVD noted. Lungs: Diminished, greater bases, mildly increased respiratory rate but no distress, no rales, ronchi or wheezing. Heart: Mildly tachycardic with regular rhythm; no gallop, rub audible. Abdomen: Soft, generalized discomfort with no rebound or guarding, mildly distended, hyperactive bowel sounds, no appreciated HSM but difficult given discomfort with palpation. Extremities: No cyanosis, no clubbing, no marked peripheral edema, status post previous TMA and toe amputation evident. Neurological: Patient awake, alert, oriented as noted, cognitive function intact; pupils equally reactive to light and accommodation, cranial nerves grossly normal, moving all 4 extremities, no focal deficits, strength severely globally decreased secondary to acute presentation complicated by underlying comorbidities. Psychiatric: Affect appears fatigued, ill-appearing, no acute evidence of depressive or anxiety feelings but does have underlying history. Results Lab / Micro Data 12/29/23 09:35 12/29/23 09:35 Labs: Laboratory Results - last 24 hr 12/29/23 09:35: WBC 9.6, RBC 5.11, Hgb 13.9, Hct 41.5, MCV 81.2, MCH 27.2, MCHC 33.5, RDW Std Deviation 39.4, RDW Coeff of Spencer 13.3, Plt Count 255, MPV 8.9, Immature Gran % (Auto) 0.200, Neut % (Auto) 80.7 H, Lymph % (Auto) 12.6 L, [place] % (Auto) 5.5, Eos % (Auto) 0.7, Baso % (Auto) 0.3, Absolute Neuts (auto) 7.7, Absolute Lymphs (auto) 1.21, Nucleated RBC % 0, Sodium 135 L, Potassium 3.8, Chloride 101, Carbon Dioxide 27.0, Anion Gap 7, BUN 14, Creatinine 1.01, Estim Creat Clear Calc 71.55, Est GFR (MDRD) Af Amer 74, Est GFR (MDRD) Non-Af 61, BUN/Creatinine Ratio 13.9, Glucose 331 H, Calcium 10.0, Total Bilirubin 1.30 H, AST 25, ALT 23, Alkaline Phosphatase 142 H, Total Protein 7.9, Albumin 3.2, G lobulin 4.7 H, Albumin/Globulin Ratio 0.7 L, Lipase 38 12/29/23 12:20: Urine Color Yellow, Urine Clarity Clear, Urine pH 8.0, Ur Specific [place] 1.010, Urine Protein 100 H, Urine Glucose (UA) 1000 H, Urine Ketones Negative, Urine Occult Blood 50 H, Urine Nitrite Negative, Urine Bilirubin Negative, Urine Urobilinogen Normal, Ur Leukocyte Esterase Negative, Urine RBC 10-25 SEEN, Urine WBC 0 SEEN, Ur Squamous Epith Cells 0 SEEN, Urine Bacteria 0 SEEN, Urine Mucus 0 SEEN Imaging Radiology Impression Abdomen/Pelvis CT 12/29/23 09:09 IMPRESSION: 1. Diffuse areas of large bowel wall thickening consistent with colitis. 2. Stable bilateral adrenal nodules. 3. Stable hepatic lesions suggestive of hemangiomata. 4. Acute/subacute fractures of L5 vertebral body, right inferior pubic ramus and proximal right femur. Electronically Signed: Jose Taylor MD at 12:12 EDT , Pelvis X-Ray 12/29/23 12:21 IMPRESSION: No fracture or malalignment. Electronically Signed: Dion Allen MD ([place]) at 13:26 EDT , Femur X-Ray 12/29/23 13:06 IMPRESSION: No acute fracture or malalignment. Postoperative changes in the proximal right femur with persistent IT fracture line. Electronically Signed: Dion Allen MD ([place]) at 13:23 EDT , Assessment & Plan Assessment/Plan (1) Colitis: PLAN: Plan The patient is a 53 y/o F w/ PMHx: PAD, GWYN, Hx VTE (DVT, PE), HTN, HLD, Anxiety and Depression/Mood disorder, Tobacco use, Seizure disorder, Rheumatoid arthritis, Hx Polysubstance abuse/EtOH abuse, Diabetes mellitus type II, CAD, HFrEF, most recent discharge 11/19/2023 following treatment of acute on chronic debility, adult failure to thrive secondary to inability to care for her self transitioned to skilled facility at that time who now represents to the [facility] ED on 12/29/2023 with history of recent remote hip fracture with onset the day prior diffuse abdominal discomfort, cramping with nausea and emesis as well as loose stools which started over the last 12 hours with significant serial episodes prompting eventual ED evaluation. #1. Abdominal pain, nausea/emesis/diarrhea secondary to diffuse large bowel colitis: Will maintain on aggressive hydration, monitor I&Os, maintain NPO status w/ bowel rest with advancement of clears once clinically improving and nausea/emesis are resolving with then diet advancement as tolerated, will obtain C. difficile and enteric panel, will maintain on IV zosyn regimen given CT findings however patient with no marked WC elevation or left shift, procalcitonin pending, IV PPI, anti-emetics, pain regimen PRN. #2. Acute/subacute fracture L5 vertebral body, remote right inferior pubic ramus and proximal right femur: ED evaluation w/ plain film of the pelvis with no fracture or malalignment, plain film of the right femur with no acute fracture or malalignment, postoperative changes in the proximal right femur with persistent IT fracture line, follow-up CT imaging w/ acute/subacute fractures of L5 vertebral body, right inferior pubic rami and proximal right femur. Will maintain on fall precautions, frequent positioning, initiate IV toradol as renal function allows, lidoacine patches, may consider increasing gabapentin as needed, if necessary PO and IV narcotic therapy but given substance abuse history would prefer to avoid if able, anti-emetics, bowel regimen. Will consult PT and OT for evaluation as well as Case management for discharge planning. #3. Adult failure to thrive, multifactorial: Patient with significant underlying comorbidities as well as recent fall with as noted also acute/subacute fracture L5 vertebral body and right inferior pubic rami fracture as well as proximal right femur fracture recent, recent fall approximately 2 weeks prior with potentially L5 vertebral body fracture secondary to this recent injury, will continue treatments as noted, maintain on fall precautions, PT/OT/CM for discharge planning. #4. HFrEF: Most recent echocardiogram 05/2023 with EF 50% however this had been stable from previously, most recent evaluation per cardiology 05/06/2023, encourage outpatient follow-up and reevaluation per cardiology as there was still some consideration given her incomplete left bundle branch block as to whether or not she could be a candidate for [employer]. Given history will very judiciously hydrate as needed, continue aspirin, Plavix, Entresto, spironolactone, Coreg, Lasix regimen. #5. Diabetes mellitus type II with history of diabetic foot wounds with concurrent underlying PAD with chronic neuropathy: Patient status post previous left TMA, right second toe amputation, PCI ho likely SFA ld oral home regimen, continue home insulin regimen, as noted above until clinically improving with resolution of nausea/emesis will allow clears but eventually transition to ADA diet, accu checks w/ ISS. Continue patient home chronic gabapentin regimen. #6 CAD/cardiomyopathy, unclear if ischemic: Patient with evidence of coronary disease however not amenable to PCI and noted to have an akinetic anterior wall with cardiology decision for continue medical management therapy only, continue home aspirin, Plavix, Entresto, Coreg home regimen. #7. Hypertension: Continue home regimen including Coreg, Entresto, Lasix, spironolactone as BP allows, PRN hydralazine. #8. GWYN: CPAP nightly once clinically improving and nausea and emesis are resolved, at this point would only supplement oxygen until clinically safe to use mask. #9. Tobacco Abuse: Encouraged cessation, inpatient consultation per RT, NR if desired. #10. Chronic orthostasis: We will continue patient home midodrine regimen. Encourage slow positional changes with PT and OT assessments. #11. Chart reported history rheumatoid arthritis: Not on any chronic regimen, not on chronic steroids, encourage continued outpatient follow-up with rheumatology as previously arranged. #12. Anxiety depression/mood disorder: We will continue patient home escitalopram regimen. #13. History of VTE: Patient with history DVT, PE, not currently chronically anticoagulated, will maintain on chemoprophylactic Lovenox at this time. #14. Seizure disorder: Noted in the chart history, not on antiepileptic medication, suspect likely with alcohol withdrawal component. #15. History of polysubstance abuse/alcohol abuse: Patient states she is currently clean and sober but cannot give a clear timeline and when attempted to discuss further her response is that she does not really drink. Will encouraged continued clean and sober status, case management consulted. Alcohol level and urine drug screen requested. #16. GERD: Will maintain on IV PPI given presentation. #17. DVT prophylaxis: Lovenox. #18. CODE status: Patient does not have healthcare power of document review attorney or living will in place but notes she would want her mother to be her decision-maker if it was necessary. Discussed CODE status at length including difference between FULL code, DNR-CCA and DNR-CC status. Following discussions about the differences in these status, requested Full Code status. Advanced Care Planning Face to Face Time: 16 minutes. Charges/Coding Visit Charges Inpatient E&M: 23887 Init Hosp L3 Procedures Hospitalists Procedures: 82669 Advncd Care Plan 30 Min
[2023-12-29 14:57] LABS: Phosphorus 2.6 mg/dL (2.5-4.9)
[2023-12-29 15:18] VITALS: BMI 27.8
[2023-12-29 15:24] LABS: Amphetamine Urine VISTA NEGATIVE (<1000 ng/mL); Barbiturate Urine VISTA NEGATIVE (< 200 ng/mL); Benzodiazepine Urine VISTA NEGATIVE (< 200 ng/mL); Cocaine Urine VISTA NEGATIVE (< 300 ng/mL); Ecstacy Urine VISTA NEGATIVE (< 500 ng/mL); Methadone Urine VISTA NEGATIVE (< 300 ng/mL); PCP Urine VISTA NEGATIVE (< 25 ng/mL); THC Urine VISTA POSITIVE (< 50 ng/mL); Vista UDS pH Range 7
[2023-12-29 15:36] LABS: Procalcitonin 0.23 ng/mL (0.00-0.09)
[2023-12-29] MEDS: 0.9% Normal Saline (1000mL) 1,000 ML 75 ML IV (15:41)
[2023-12-29 15:44] VITALS: BP 135/66; PULSE 106; RESP 13; TEMP 36.6; O2SAT 98
[2023-12-29] MEDS: 0.9% Saline Lock 10 ML Syringe IV (16:19)
[2023-12-29] MEDS: Ketorolac 15 MG/ML Vial IV ×2 (16:21→21:58)
[2023-12-29] MEDS: Gabapentin 400 MG Capsule PO ×2 (16:21→22:03)
[2023-12-29] MEDS: Carvedilol 3.125 MG TABLET PO ×2 (16:21→22:04)
[2023-12-29] MEDS: Midodrine HCl 5 MG Tablet 2.5 MG PO (16:21)
[2023-12-29] MEDS: Lidocaine 5% Patch 2 PATCH TOPICAL (16:23)
[2023-12-29] MEDS: Menthol/Lanolin/Calamine/Znox 113 GM Tube 1 APPLIC TOPICAL ×2 (16:29→22:11)
[2023-12-29] MEDS: Insulin Lispro 100 UNIT/ML INSULN.PEN SC ×2 (16:33→22:15)
[2023-12-29 17:02] LABS: Bedside Glucose 285 mg/dL (74-106)
[2023-12-29 21:51] VITALS: BP 137/82; PULSE 98; RESP 16; TEMP 36.8; O2SAT 99
[2023-12-29] MEDS: proCHLORPERazine 10 MG/2 ML Vial 5 MG IV (21:57)
[2023-12-29] MEDS: Acetaminophen 325 MG Tablet 650 MG PO (22:03)
[2023-12-29] MEDS: SACUBITRIL/VALSARTAN 24/26 MG TABLET 1 EACH PO (22:04)
[2023-12-29] MEDS: Atorvastatin Calcium 80 MG Tablet PO (22:04)
[2023-12-29] MEDS: Pantoprazole Sodium 40 MG in 0.9% Normal Saline (100mL MB+) 100 ML 330 MG IV (22:08)
[2023-12-29] MEDS: Nystatin Powder 15gm Bottle 1 APPLIC TOPICAL (22:10)
[2023-12-29] MEDS: Insulin Glargine-YFGN 100 UNIT/ML Pen 24 UNIT SC (22:14)
[2023-12-29] MEDS: Piperacil/Tazobactam 3.375 GM in 0.9% Normal Saline (50mL MB+) 50 ML IV (22:37)
[2023-12-30 00:06] LABS: Bedside Glucose 198 mg/dL (74-106)
[2023-12-30 04:17] VITALS: BP 115/61; PULSE 87; RESP 18; TEMP 36.7; O2SAT 96
[2023-12-30 05:53] VITALS: BMI 28.6
[2023-12-30 06:28] LABS: Absolute Lymphocyte Count 1.54 X10^3/uL (0.83-4.51); Absolute Neutrophil Count 5.1 X10^3/uL (2.0-7.7); Basophil# 0.06 X10^3/uL; Basophil% 0.8 % (0-1); Eosinophil# 0.24 X10^3/uL; Eosinophils% 3.1 % (0-5); Hematocrit 36.3 % (37-47); Hemoglobin 11.6 g/dL (12.0-15.0); Lymphocyte # 1.54 X10^3/ul (0.83-4.51); Lymphocyte % 20.2 % (19-41); Mean Corpuscular Hgb 27.2 pg (27.0-32.0); Mean Platelet Vol. 9.1 fl (6.2-12.0); Monocyte% 9.2 % (0-10); NRBC Flagged by Analyzer 0 % (0-5); Neutrophil # 5.07 X10^3/uL (2.7-7.7); Neutrophil % 66.4 % (47-70); Platelet Count 213 K/mm3 (150-450); RBC Distribution Width CV 13.3 % (11.6-14.6); RBC Distribution Width SD 41.4 fl (35.1-43.9); Red Blood Count 4.27 M/mm3 (4.2-5.4); White Blood Count 7.6 K/mm3 (4.4-11.0)
[2023-12-30] MEDS: Piperacil/Tazobactam 3.375 GM in 0.9% Normal Saline (50mL MB+) 50 ML IV ×3 (06:29→21:02)
[2023-12-30] MEDS: Gabapentin 400 MG Capsule PO ×3 (06:29→20:55)
[2023-12-30] MEDS: Ketorolac 15 MG/ML Vial IV ×3 (06:31→20:53)
[2023-12-30] MEDS: Insulin Lispro 100 UNIT/ML INSULN.PEN SC ×4 (06:33→21:08)
[2023-12-30] MEDS: Nystatin Powder 15gm Bottle 1 APPLIC TOPICAL ×3 (06:37→20:55)
[2023-12-30] MEDS: Ondansetron 4 MG/2 ML Vial IV (06:47)
[2023-12-30 07:01] LABS: ALB/GLOB Ratio 0.6 RATIO (0.9-2.4); AST(SGOT) 23 U/L (15-37); Alanine Aminotransfer ALT/SGPT 18 U/L (13-56); Albumin, Serum 2.4 g/dL (3.2-5.0); Alkaline Phosphatase 114 U/L (45-117); Anion Gap 3 (5-15); BUN 13 mg/dL (7-18); BUN/Creat Ratio 17.1 RATIO (10-20); Calcium,Total 8.6 mg/dL (8.5-10.1); Chloride 108 mmol/L (98-107); Creatinine, Serum 0.76 mg/dL (0.55-1.02); EST Glomerular Filtration Rate 85 mL/min (>60); Est Glom Filt Rate - Afr Amer 103 mL/min (>60); Globulin 3.9 g/dL (2.2-4.2); Glucose 178 mg/dL (74-106); Potassium 3.1 mmol/L (3.5-5.1); Protein, Total 6.3 g/dL (6.4-8.2); Sodium Level 136 mmol/L (136-145)
[2023-12-30 07:32] LABS: Bedside Glucose 176 mg/dL (74-106)
[2023-12-30 08:13] VITALS: BP 136/75; PULSE 89; RESP 14; TEMP 36.7; O2SAT 100
[2023-12-30] MEDS: Enoxaparin 40 MG/0.4 ML Syringe SC (08:19)
[2023-12-30] MEDS: Midodrine HCl 5 MG Tablet 2.5 MG PO ×2 (08:19→15:45)
[2023-12-30] MEDS: Furosemide 40 MG Tablet PO (08:20)
[2023-12-30] MEDS: Aspirin 81 MG TAB.CHEW PO (08:20)
[2023-12-30] MEDS: Carvedilol 3.125 MG TABLET PO (08:20)
[2023-12-30] MEDS: Escitalopram Oxalate 10 MG Tablet PO (08:20)
[2023-12-30] MEDS: Clopidogrel Bisulfate 75 MG Tablet PO (08:20)
[2023-12-30] MEDS: Spironolactone 25 MG Tablet 12.5 MG PO (08:20)
[2023-12-30] MEDS: SACUBITRIL/VALSARTAN 24/26 MG TABLET 1 EACH PO ×2 (08:20→20:55)
[2023-12-30] MEDS: Menthol/Lanolin/Calamine/Znox 113 GM Tube 1 APPLIC TOPICAL ×4 (08:23→20:54)
[2023-12-30] MEDS: Lidocaine 5% Patch 2 PATCH TOPICAL (08:24)
[2023-12-30] MEDS: Insulin Glargine-YFGN 100 UNIT/ML Pen 40 UNIT SC (08:30)
[2023-12-30] MEDS: Pantoprazole Sodium 40 MG in 0.9% Normal Saline (100mL MB+) 100 ML 330 MG IV ×2 (08:32→20:55)
[2023-12-30] MEDS: 0.9% Saline Lock 10 ML Syringe IV ×2 (08:32→13:53)
[2023-12-30] MEDS: Potassium Chloride 10mEq/100mL 10 MEQ/100 ML IV.SOLN. 100 MEQ IV BOLUS ×2 (09:28→10:22)
[2023-12-30] MEDS: Potassium Chloride 10mEq/100mL 10 MEQ/100 ML IV.SOLN. 6 MEQ IV BOLUS ×2 (12:00→13:50)
[2023-12-30 12:38] LABS: Bedside Glucose 193 mg/dL (74-106)
[2023-12-30 13:14] VITALS: O2SAT 98
--- NOTE | 2023-12-30 14:31 | PN_ITS ---
Subjective Subjective Patient seen and examined. He says she is feeling better. Her abdominal pain has improved. She is on a clear liquid diet and wants to advance her diet. Review of systems otherwise negative. Objective Data Objective Data Vital Signs: Vital Signs Temp Pulse Resp BP Pulse Ox O2 Del Method 98.0 F 89 14 136/75 H 98 Room Air 12/30/23 08:13 12/30/23 08:13 12/30/23 08:13 12/30/23 08:13 12/30/23 13:14 12/30/23 13:14 Oxygen Delivery Method Room Air Weight: 182 lb 8.684 oz Body Mass Index (BMI) 28.6 Intake & Output: Intake and Output for Last 24 Hours 12/28/23 12/29/23 12/30/23 23:59 23:59 23:59 Intake Total 1300 / 1300 1435.5 / 1435.5 Output Total 300 / 300 Balance 1300 / 1300 1135.5 / 1135.5 Lab / Micro Data 12/30/23 06:07 12/30/23 06:07 Labs: Laboratory Results - last 24 hr 12/29/23 12:20: Urine Opiates Screen POSITIVE H, Urine Methadone Screen NEGATIVE, Ur Barbiturates Screen NEGATIVE, Ur Phencyclidine Scrn NEGATIVE, Ur Amphetamines Screen NEGATIVE, MDMA (Ecstasy) Screen NEGATIVE, U Benzodiazepines Scrn NEGATIVE, Urine Cocaine Screen NEGATIVE, U Cannabinoids Screen POSITIVE H, Ur Drug Screen Comment 12/29/23 14:20: Phosphorus 2.6, Magnesium 2.0, Procalcitonin 0.23 H, Ethyl Alcohol 4.0 12/29/23 16:32: POC Glucose 285 H 12/29/23 22:12: POC Glucose 198 H 12/30/23 06:07: WBC 7.6, RBC 4.27, Hgb 11.6 L, Hct 36.3 L, MCV 85.0, MCH 27.2, MCHC 32.0, RDW Std Deviation 41.4, RDW Coeff of Spencer 13.3, Plt Count 213, MPV 9.1, Immature Gran % (Auto) 0.300, Neut % (Auto) 66.4, Lymph % (Auto) 20.2, [place] % (Auto) 9.2, Eos % (Auto) 3.1, Baso % (Auto) 0.8, Absolute Neuts (auto) 5.1, Absolute Lymphs (auto) 1.54, Nucleated RBC % 0, Sodium 136, Potassium 3.1 L, C hloride 108 H, Carbon Dioxide 25.0, Anion Gap 3 L, BUN 13, Creatinine 0.76, Estim Creat Clear Calc 95.80, Est GFR (MDRD) Af Amer 103, Est GFR (MDRD) Non-Af 85, BUN/Creatinine Ratio 17.1, Glucose 178 H, Calcium 8.6, Total Bilirubin 1.70 H, AST 23, ALT 18, Alkaline Phosphatase 114, Total Protein 6.3 L, Albumin 2.4 L, Globulin 3.9, Albumin/Globulin Ratio 0.6 L 12/30/23 06:36: POC Glucose 176 H 12/30/23 12:16: POC Glucose 193 H Physical Exam Const alert, oriented x3 and no apparent distress General Appearance: cooperative HEENT normocephalic, head/scalp atraumatic, moist oral mucous membranes and oropharynx normal Eyes PERRL and EOMs intact bilaterally Neck no lymphadenopathy, supple and no JVD Lymph Lymphatic: no lymphadenopathy noted and no lymphedema noted Resp normal respiratory effort, normal air movement and clear to auscultation bilaterally Cardio regular rate, regular rhythm, S1 normal heart sound, S2 normal heart sound and no murmurs GI GI Narrative: mild generalised tenderness, no guarding or rebound tenderness. Extremity normal capillary refill, no clubbing, cyanosis or edema and no calf tenderness General Extremity: no tenderness to palpation of joints or extremities Skin General Skin Exam: no breakdown Neuro CN's II-XII intact bilaterally, no focal motor deficits, no sensory deficits noted and deep tendon reflexes 2+ bilaterally Motor Exam: strength 5/5 throughout and general weakness Psych thought process normal and cooperative Mood & Affect: flat affect Assessment & Plan Assessment/Plan (1) Colitis: (2) L5 vertebral fracture: PLAN: Plan #Acute colitis * Diarrhea and nausea and vomiting have improved. She is currently on clear liquid diet and wants to advance the diet. Will advance to full liquid diet * . Currently on IV Zosyn. * IV Zofran as needed. Continue gentle hydration with IV fluids. #Acute versus subacute fracture of the L5 vertebral body. * Patient sustained a mechanical fall in her long-term facility before she was discharged from there. Imaging done showed acute with subacute fracture of L5 vertebral body and a healing fracure of the right inferior pubic ramus , * On IV Toradol. PT OT on board. For precautions. * On lidocaine patch and gabapentin * if pain is not well controlled, will get pain management consult * #COmbined systolic and diastolic heart failure * Not in exacerbation. Currently stable. * On spironolactone and Entresto as well as Lasix and Coreg. * Has known EF of 15% with severe segmental systolic dysfunction and stage III diastolic dysfunction from 2D echo done on 05/04/2023. 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 Home insulin dose on hold due to patient's colitis and nausea and vomiting. * Insulin sliding scale. Checks ACHS. #Hypertension: On Coreg and Lasix and Entresto as well as spironolactone. IV hydralazine as needed #CAD: on aspirin and statin as well as plavix #GWYN: On CPAP nightly. #Anxiety and depression: On escitalopram #History of polysubstance abuse: Patient states she is currently clean. Encouraged to maintain sobriety #GERD: PPI DVT prophylaxis: Lovenox Charges/Coding Visit Charges Inpatient E&M: 84307 Subs Hosp L2
[2023-12-30] MEDS: Acetaminophen 325 MG Tablet 650 MG PO ×2 (15:43→20:54)
[2023-12-30] MEDS: oxyCODONE 5 MG Tablet PO (15:44)
[2023-12-30 16:00] VITALS: BP 118/73; PULSE 88; RESP 15; TEMP 36.3; O2SAT 99
[2023-12-30 17:30] LABS: Bedside Glucose 168 mg/dL (74-106)
[2023-12-30 20:29] VITALS: BP 93/61; PULSE 85; RESP 18; TEMP 36.7; O2SAT 98
[2023-12-30] MEDS: Atorvastatin Calcium 80 MG Tablet PO (20:55)
[2023-12-30] MEDS: Insulin Glargine-YFGN 100 UNIT/ML Pen 24 UNIT SC (21:09)
[2023-12-30 23:29] LABS: Bedside Glucose 173 mg/dL (74-106)
[2023-12-31] VITALS (9 sets, daily range): BP systolic 87–124; BP diastolic 49–79; PULSE 84–96; RESP 17–18; TEMP 36.6–37.3; O2SAT 95–98; BMI 28.8
[2023-12-31] MEDS: oxyCODONE 5 MG Tablet PO ×3 (02:45→22:22)
[2023-12-31] MEDS: Ondansetron 4 MG/2 ML Vial IV ×2 (06:31→22:22)
[2023-12-31] MEDS: Piperacil/Tazobactam 3.375 GM in 0.9% Normal Saline (50mL MB+) 50 ML IV ×3 (06:33→22:21)
[2023-12-31] MEDS: Gabapentin 400 MG Capsule PO ×3 (06:35→22:21)
[2023-12-31] MEDS: Nystatin Powder 15gm Bottle 1 APPLIC TOPICAL ×3 (06:35→22:20)
[2023-12-31 06:59] LABS: Absolute Lymphocyte Count 1.79 X10^3/uL (0.83-4.51); Absolute Neutrophil Count 4.2 X10^3/uL (2.0-7.7); Basophil# 0.06 X10^3/uL; Basophil% 0.9 % (0-1); Eosinophil# 0.22 X10^3/uL; Eosinophils% 3.2 % (0-5); Hematocrit 33.5 % (37-47); Hemoglobin 10.8 g/dL (12.0-15.0); Lymphocyte # 1.79 X10^3/ul (0.83-4.51); Mean Corp Hgb Conc 32.2 g/dL (32-36); Mean Corpuscular Hgb 26.8 pg (27.0-32.0); Mean Corpuscular Volume 83.1 fL (81-99); Mean Platelet Vol. 9.6 fl (6.2-12.0); Monocyte# 0.61 X10^3/uL; Monocyte% 8.9 % (0-10); NRBC Flagged by Analyzer 0 % (0-5); Neutrophil % 60.9 % (47-70); Platelet Count 231 K/mm3 (150-450); RBC Distribution Width CV 13.4 % (11.6-14.6); RBC Distribution Width SD 40.5 fl (35.1-43.9); Red Blood Count 4.03 M/mm3 (4.2-5.4); White Blood Count 6.9 K/mm3 (4.4-11.0)
[2023-12-31 07:04] LABS: Bedside Glucose 141 mg/dL (74-106)
[2023-12-31 07:24] LABS: Anion Gap 5 (5-15); BUN 19 mg/dL (7-18); Calcium,Total 8.4 mg/dL (8.5-10.1); Chloride 106 mmol/L (98-107); Creatinine, Serum 1.36 mg/dL (0.55-1.02); EST Glomerular Filtration Rate 43 mL/min (>60); Est Glom Filt Rate - Afr Amer 52 mL/min (>60); Estimated Creatinine Clearance 53.66 ml/min; Glucose 138 mg/dL (74-106); Potassium 3.6 mmol/L (3.5-5.1); Sodium Level 136 mmol/L (136-145)
[2023-12-31] MEDS: proCHLORPERazine 10 MG/2 ML Vial 5 MG IV (08:27)
[2023-12-31] MEDS: Aspirin 81 MG TAB.CHEW PO (08:27)
[2023-12-31] MEDS: Midodrine HCl 5 MG Tablet 2.5 MG PO ×2 (08:27→16:40)
[2023-12-31] MEDS: Acetaminophen 325 MG Tablet 650 MG PO ×3 (08:27→22:22)
[2023-12-31] MEDS: Menthol/Lanolin/Calamine/Znox 113 GM Tube 1 APPLIC TOPICAL ×4 (08:28→22:19)
[2023-12-31] MEDS: Enoxaparin 40 MG/0.4 ML Syringe SC (10:15)
[2023-12-31] MEDS: Insulin Glargine-YFGN 100 UNIT/ML Pen 40 UNIT SC (10:16)
[2023-12-31] MEDS: Lidocaine 5% Patch 2 PATCH TOPICAL (10:16)
[2023-12-31] MEDS: Clopidogrel Bisulfate 75 MG Tablet PO (10:16)
[2023-12-31] MEDS: Escitalopram Oxalate 10 MG Tablet PO (10:16)
[2023-12-31 10:39] LABS: Bedside Glucose 153 mg/dL (74-106)
--- NOTE | 2023-12-31 10:45 | CASEMGMT ---
Addendum entered by Yenni Edwards 12/31/23 15:43: CHAYITO BARKLEY into pt room, provided pt with a sheet from that she made a referral to the waiver program and phone number. Pt also states she uses oxygen at through [facility]. Called to confirm rx. Original Note: CHAYITO BARKLEY Assessment: Face to Face with pt for initial transition planning/care coordination assessment. CHAYITO BARKLEY introduced self and role at [facility], pt voices understanding and consents to assessment. Pt is A&O x4 and answers all questions appropriately at this time. Care providers, pharmacy, and demographics verified/updated. Admitting Dx: colitis, subacute vertebral fx Strata Score: 3 [facility], cardio; [facility], pod Preferred Pharmacy: [facility] [place] Insurance: [facility] Prescription Benefit: yes LNOK: Rebecca Dueñas, mother Living Arrangements: Pt lives with dtr and dtr's boyfriend in a two story home with 1 step to enter. Pt reports she has FFSU. Pt states she sponge bathes and dresses herself. Pt dtr or dtr's boyfriend prepares meals and gets groceries. Pt does own laundry. Pt reports she feels she needs an aide at home to assist with home tasks. Updated who will make referral to [facility]. Transportation: Pt states she can drive but does not have a car. She uses her mother's car if needed. DME:rollator, raised toilet seat, BGM with sufficient supply of lancets and strips, sufficient supply of insulin and needles, w/c, FWW, BSC but reports too big HHC/SNF: Pt has had HHC in the past but cannot recall the name of the agency. Pt was dc'd from [facility] last Sunday. Pt states no concerns with going home at time of dc. Pt states she was set up with outpt therapy at [facility] when she dc'd. Pt states she knows the therapists there and wants to go there for therapy. She states she has transportation for this. TC to [facility], left message for Lacey to confirm pt is set up and to confirm pt does not need a rx. Will await returned call as CHAYITO BARKLEY left message. Pt states that her dtr feels that she is taking her life from her as she is caring for her mother. Pt states no further concerns/needs. CM to follow. Advised pt to ask CM if any further question/concerns/needs arise, voices understanding. Pt Goal: Home with outpt therapy Plan: Home with outpt therapy Jessica STRATTON CM
--- NOTE | 2023-12-31 11:23 | CASEMGMT ---
Social Work- SW submitted referral for [facility] Waiver services, as RNCM relayed that pt is requesting services in home. SW provided printed materials to pt with information on program and contact number as well. No other SW needs indicated at this time. SW to remain available to follow. SANDRA Duncan
[2023-12-31] MEDS: Pantoprazole Sodium 40 MG in 0.9% Normal Saline (100mL MB+) 100 ML 330 MG IV ×2 (11:48→21:00)
[2023-12-31] MEDS: 0.9% Saline Lock 10 ML Syringe IV (13:49)
--- NOTE | 2023-12-31 14:55 | PN_ITS ---
Subjective Subjective Patient seen and examined. She has no complaints and abdominal pain is resolved. Review of symptoms otherwise negative. Blood pressure has always been running low in the 90s systolic in the 80s systolic though she has remained asymptomatic. Review of systems otherwise negative. Objective Data Objective Data Vital Signs: Vital Signs Temp Pulse Resp BP Pulse Ox O2 Del Method 98.4 F 87 18 102/59 L 95 Room Air 12/31/23 13:45 12/31/23 13:45 12/31/23 13:45 12/31/23 13:45 12/31/23 13:45 12/31/23 13:45 Oxygen Delivery Method Room Air Weight: 183 lb 6.793 oz Body Mass Index (BMI) 28.8 Intake & Output: Intake and Output for Last 24 Hours 12/29/23 12/30/23 12/31/23 23:59 23:59 23:59 Intake Total 1300 / 1300 1653.3 / 1653.3 460.0 / 460.0 Output Total 800 / 800 750 / 750 Balance 1300 / 1300 853.3 / 853.3 -290.0 / -290.0 Lab / Micro Data 12/31/23 06:18 12/31/23 06:18 Labs: Laboratory Results - last 24 hr 12/30/23 17:06: POC Glucose 168 H 12/30/23 21:07: POC Glucose 173 H 12/31/23 06:18: WBC 6.9, RBC 4.03 L, Hgb 10.8 L, Hct 33.5 L, MCV 83.1, MCH 26.8 L, MCHC 32.2, RDW Std Deviation 40.5, RDW Coeff of Spencer 13.4, Plt Count 231, MPV 9.6, Immature Gran % (Auto) 0.100, Neut % (Auto) 60.9, Lymph % (Auto) 26.0, [place] % (Auto) 8.9, Eos % (Auto) 3.2, Baso % (Auto) 0.9, Absolute Neuts (auto) 4.2, Absolute Lymphs (auto) 1.79, Nucleated RBC % 0, Sodium 136, Potassium 3.6, Chloride 106, Carbon Dioxide 25.0, Anion Gap 5, BUN 19 H, Creatinine 1.36 H, Estim Creat Clear Calc 53.66, Est GFR (MDRD) Af Amer 52 L, Est GFR (MDRD) Non-Af 43 L, BUN/Creatinine Ratio 14.0, Glucose 138 H, Calcium 8.4 L 12/31/23 06:26: POC Glucose 141 H 12/31/23 10:15: POC Glucose 153 H Physical Exam Const alert, oriented x3 and no apparent distress General Appearance: cooperative HEENT normocephalic, head/scalp atraumatic, moist oral mucous membranes and oropharynx normal Eyes PERRL and EOMs intact bilaterally Neck no lymphadenopathy, supple and no JVD Lymph Lymphatic: no lymphadenopathy noted and no lymphedema noted Resp normal respiratory effort, normal air movement and clear to auscultation bilaterally Cardio regular rate, regular rhythm, S1 normal heart sound, S2 normal heart sound and no murmurs GI GI Narrative: mild generalised tenderness, no guarding or rebound tenderness. Extremity normal capillary refill, no clubbing, cyanosis or edema and no calf tenderness General Extremity: no tenderness to palpation of joints or extremities Skin General Skin Exam: no breakdown Neuro CN's II-XII intact bilaterally, no focal motor deficits, no sensory deficits noted and deep tendon reflexes 2+ bilaterally Motor Exam: strength 5/5 throughout and general weakness Psych thought process normal and cooperative Mood & Affect: flat affect Assessment & Plan Assessment/Plan (1) Colitis: (2) L5 vertebral fracture: PLAN: Plan #Acute colitis * Diarrhea and nausea and vomiting have improved. * advance to regular diet * on IV zosyn * IV Zofran as needed. * #Acute versus subacute fracture of the L5 vertebral body. * Patient sustained a mechanical fall in her longterm facility before she was discharged from there. Imaging done showed acute with subacute fracture of L5 vertebral body and a healing fracure of the right inferior pubic ramus , * On IV Toradol. PT OT on board. For precautions. * On lidocaine patch and gabapentin * pain is well controlled * PT/OT on board. Fall precautions * #COmbined systolic and diastolic heart failure * Not in exacerbation. Currently stable. * On spironolactone and Entresto as well as Lasix and Coreg. * Has known EF of 15% with severe segmental systolic dysfunction and stage III diastolic dysfunction from 2D echo done on 05/04/2023. * she has had intermittent low BP with systolic in the 90s and 80s. This is likely due to her EF of 15%. Meds therefore held today. 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 Home insulin dose on hold due to patient's colitis and nausea and vomiting. * Insulin sliding scale. Checks ACHS. #Hypertension: On Coreg and Lasix and Entresto as well as spironolactone. IV hydralazine as needed. BP meds held today due to hypotension. #CAD: on aspirin and statin as well as plavix #GWYN: On CPAP nightly. #Anxiety and depression: On escitalopram #History of polysubstance abuse: Patient states she is currently clean. Encouraged to maintain sobriety #GERD: PPI DVT prophylaxis: Lovenox Disposition: for likely dc tomorrow if BP stabilises. Charges/Coding Visit Charges Inpatient E&M: 60157 Subs Hosp L2
[2023-12-31] MEDS: Insulin Lispro 100 UNIT/ML INSULN.PEN SC (16:40)
[2023-12-31 17:06] LABS: Bedside Glucose 155 mg/dL (74-106)
[2023-12-31] MEDS: Carvedilol 3.125 MG TABLET PO (22:19)
[2023-12-31] MEDS: Atorvastatin Calcium 80 MG Tablet PO (22:20)
[2023-12-31] MEDS: SACUBITRIL/VALSARTAN 24/26 MG TABLET 1 EACH PO (22:20)
[2024-01-01 01:24] LABS: Bedside Glucose 97 mg/dL (74-106)
[2024-01-01 04:17] VITALS: BP 94/54; PULSE 88; RESP 17; TEMP 36.2; O2SAT 95
[2024-01-01] MEDS: Piperacil/Tazobactam 3.375 GM in 0.9% Normal Saline (50mL MB+) 50 ML IV (05:03)
[2024-01-01] MEDS: Gabapentin 400 MG Capsule PO (05:04)
[2024-01-01] MEDS: Nystatin Powder 15gm Bottle 1 APPLIC TOPICAL (05:04)
[2024-01-01] MEDS: Insulin Lispro 100 UNIT/ML INSULN.PEN SC ×2 (05:06→11:34)
[2024-01-01 05:26] VITALS: BMI 28.8
[2024-01-01 05:28] LABS: Bedside Glucose 170 mg/dL (74-106)
[2024-01-01 06:44] LABS: Absolute Lymphocyte Count 1.39 X10^3/uL (0.83-4.51); Absolute Neutrophil Count 3.6 X10^3/uL (2.0-7.7); Basophil# 0.05 X10^3/uL; Basophil% 0.9 % (0-1); Eosinophil# 0.19 X10^3/uL; Eosinophils% 3.2 % (0-5); Hematocrit 33.5 % (37-47); Hemoglobin 10.8 g/dL (12.0-15.0); Lymphocyte # 1.39 X10^3/ul (0.83-4.51); Lymphocyte % 23.7 % (19-41); Mean Corp Hgb Conc 32.2 g/dL (32-36); Mean Corpuscular Hgb 27.1 pg (27.0-32.0); Mean Platelet Vol. 9.3 fl (6.2-12.0); Monocyte# 0.58 X10^3/uL; Monocyte% 9.9 % (0-10); NRBC Flagged by Analyzer 0 % (0-5); Neutrophil # 3.63 X10^3/uL (2.7-7.7); Platelet Count 196 K/mm3 (150-450); RBC Distribution Width CV 13.2 % (11.6-14.6); RBC Distribution Width SD 40.2 fl (35.1-43.9); Red Blood Count 3.99 M/mm3 (4.2-5.4); White Blood Count 5.9 K/mm3 (4.4-11.0)
[2024-01-01 07:35] VITALS: BP 147/77; PULSE 92; RESP 18; TEMP 36.6; O2SAT 98
[2024-01-01 07:38] LABS: Anion Gap 5 (5-15); BUN 17 mg/dL (7-18); BUN/Creat Ratio 16.2 RATIO (10-20); Calcium,Total 9.4 mg/dL (8.5-10.1); Chloride 109 mmol/L (98-107); Creatinine, Serum 1.05 mg/dL (0.55-1.02); EST Glomerular Filtration Rate 58 mL/min (>60); Est Glom Filt Rate - Afr Amer 71 mL/min (>60); Estimated Creatinine Clearance 69.62 ml/min; Glucose 144 mg/dL (74-106); Potassium 3.9 mmol/L (3.5-5.1); Sodium Level 140 mmol/L (136-145)
[2024-01-01] MEDS: Aspirin 81 MG TAB.CHEW PO (07:41)
[2024-01-01] MEDS: Ondansetron 4 MG/2 ML Vial IV (07:41)
[2024-01-01] MEDS: Acetaminophen 325 MG Tablet 650 MG PO (07:41)
[2024-01-01] MEDS: 0.9% Saline Lock 10 ML Syringe IV (07:41)
[2024-01-01] MEDS: oxyCODONE 5 MG Tablet PO (07:41)
--- NOTE | 2024-01-01 09:45 | CASEMGMT ---
Addendum entered by Yenni Edwards 01/01/24 15:14: CHAYITO BARKLEY into pt room, pt is aware that [facility] accepted. She is aware that there will be 2 aide visits in total and that the SW will be calling to follow up with the waiver referral. Pt is thankful for this and verbalizes understanding. Pt denies any further homegoing needs. Pt dtr is on her way to pick pt up to go home. Addendum entered by Yenni Edwards 01/01/24 15:00: Received confirmation from [facility] that [facility] can accept pt for services. The aide will make 2 total visits for pt. Requested SW to call pt to follow up on the waiver program, unable to add to order d/t insurance per intake. Addendum entered by Yenni Edwards 01/01/24 14:15: SW made aware pt may be interested in [facility] with an aide. CHAYITO BARKLEY into pt room, pt states she would prefer this now instead of her outpt therapy at [facility]. Provided pt with a list of [facility] providers including quality and resource use data and consistent with the patient?s preferred geographic region, medical needs, and insurance network were provided from the [employer] Guide. Pt has chose [facility] as first choice followed by [facility]. Pt states then she has no preference of agency who can accept her as long as they can. TC to [facility] at [facility], referral made at this time. Will await response. Addendum entered by Yenni Edwards 01/01/24 11:02: TC to Maral Springer at [phone] to discuss request for pt to have therapy in the home, left vm and requested a returned call. Addendum entered by Yenni Edwards 01/01/24 10:47: Pt nurse stated pt requested to speak with CHAYITO BARKLEY. CHAYITO BARKLEY into pt room, pt on the phone with her dtr. Pt crying and finished the call. Pt states that her dtr feels like she is requiring too much care for her. Asked pt if she made her aware that a referral was made to attempt to get aide services in the home. Pt states yes she told her. Pt states Maral Springer called her and wants pt to have therapy in the home. Discussed with pt that her preference was to do outpt therapy at [facility] and that therapy here at [facility] does not recommend further therapy at [place]. Pt again states she wants to go to outpt therapy. She is aware that this has not been cancelled. Pt asked this RN CM to call Maral Springer, phone number received from pt. Pt denies further questions at this time. Original Note: Received vm from Lacey at [facility] who states pt is all set up for outpt therapy and no rx is needed. Pt updated.
[2024-01-01] MEDS: Enoxaparin 40 MG/0.4 ML Syringe SC (10:16)
[2024-01-01] MEDS: SACUBITRIL/VALSARTAN 24/26 MG TABLET 1 EACH PO (10:16)
[2024-01-01] MEDS: Furosemide 40 MG Tablet PO (10:16)
[2024-01-01] MEDS: Escitalopram Oxalate 10 MG Tablet PO (10:16)
[2024-01-01] MEDS: Carvedilol 3.125 MG TABLET PO (10:16)
[2024-01-01] MEDS: Insulin Glargine-YFGN 100 UNIT/ML Pen 40 UNIT SC (10:16)
[2024-01-01] MEDS: Menthol/Lanolin/Calamine/Znox 113 GM Tube 1 APPLIC TOPICAL (10:17)
[2024-01-01] MEDS: Clopidogrel Bisulfate 75 MG Tablet PO (10:17)
[2024-01-01] MEDS: Spironolactone 25 MG Tablet 12.5 MG PO (10:17)
[2024-01-01] MEDS: Lidocaine 5% Patch 2 PATCH TOPICAL (10:17)
[2024-01-01 10:24] VITALS: BP 137/67
[2024-01-01 10:42] LABS: Bedside Glucose 201 mg/dL (74-106)
[2024-01-01 10:43] VITALS: O2SAT 98
[2024-01-01] MEDS: Pantoprazole Sodium 40 MG in 0.9% Normal Saline (100mL MB+) 100 ML 330 MG IV (11:33)
--- NOTE | 2024-01-01 13:08 | DCINST_ITS ---
Discharge Instructions Diet Discharge Diet: Low fat / Low cholesterol Activity Discharge Activity: Return to Normal Activity Weight Bearing Status: Weight bearing as tolerated Dressing / Incision Call your doctor if you observe: Fever of 101 or Higher, Shortness of breath, Dizziness, Swelling in the ankles and Chest pain Follow Up Care Test Results: Test results from this visit will be discussed in further detail at your follow- up appointment, if applicable. Discharge Plan Admission Admit Date/Time: 12/29/23 14:17 Primary Reason for Your Visit: acute colitis, L5 fracture Attending Provider: Talisha Boykin Primary Care Provider: [facility] Ama Finney Consulting Providers: Rosaura Crane Instructions Patient Instructions: ED Understanding Colitis Discharge Orders/Prescriptions Prescriptions: New ondansetron 4 mg tablet,disintegrating 4 mg PO Q8H PRN (Reason: nausea and vomiting) Qty: 20 0RF cyclobenzaprine 5 mg tablet 5 mg PO TID PRN (Reason: muscle spasm) Qty: 30 0RF Continued pantoprazole 40 mg tablet,delayed release (DR/EC) 40 mg PO DAILY aspirin 81 mg Capsule 81 mg PO DAILY clopidogrel 75 mg Tablet 75 mg PO DAILY Qty: 30 0RF Patient Comments: patient stated pretty sure I still take that escitalopram oxalate [Lexapro] 10 mg tablet 10 mg PO DAILY Qty: 30 0RF Entresto 24-26 mg Tablet 1 tab PO BID 30 Days Qty: 60 0RF midodrine 2.5 mg tablet 2.5 mg PO BID carvedilol 3.125 mg tablet 3.125 mg PO BID dapagliflozin propanediol [Farxiga] 10 mg tablet 10 mg PO DAILY spironolactone 25 mg tablet 12.5 mg PO DAILY cholecalciferol (vitamin D3) 50,000 unit PO QWEEK Patient Comments: sunday insulin glargine [Lantus Solostar U-100 Insulin] 100 unit/mL (3 mL) insulin pen 40 unit subcut DAILY insulin glargine [Lantus Solostar U-100 Insulin] 100 unit/mL (3 mL) insulin pen 24 unit subcut QPM insulin lispro 100 unit/mL insulin pen, half-unit subcut furosemide 40 mg Tablet 40 mg PO DAILY atorvastatin 80 mg tablet 80 mg PO QHS gabapentin 300 mg Capsule 300 mg PO TID Referrals / Follow Up: Medical Ama Finney [Primary Care Provider] - Within 1 Week Disposition Disposition (needs filled in before D/C Order can be placed): Home, Self Care
--- NOTE | 2024-01-01 13:14 | DS.PCM_ITS ---
Providers Date of Admission: 12/29/23 Date of Discharge: 01/01/24 Primary Care Physician: Ama [facility] Reason For Visit: COLITIS, SUBACUTE VERTEBRAL FX Diagnosis Discharge Diagnosis (1) Colitis: Status: Acute Code(s): K52.9 - Noninfective gastroenteritis and colitis, unspecified (2) L5 vertebral fracture: Status: Acute Code(s): S32.059A - Unspecified fracture of fifth lumbar vertebra, initial encounter for closed fracture Plan #Acute colitis * Diarrhea and nausea and vomiting have improved. * advance to regular diet * on IV zosyn * IV Zofran as needed. * #Acute versus subacute fracture of the L5 vertebral body. * Patient sustained a mechanical fall in her senior living facility before she was discharged from there. Imaging done showed acute with subacute fracture of L5 vertebral body and a healing fracure of the right inferior pubic ramus , * On IV Toradol. PT OT on board. For precautions. * On lidocaine patch and gabapentin * pain is well controlled * PT/OT on board. Fall precautions * #COmbined systolic and diastolic heart failure * Not in exacerbation. Currently stable. * On spironolactone and Entresto as well as Lasix and Coreg. * Has known EF of 15% with severe segmental systolic dysfunction and stage III diastolic dysfunction from 2D echo done on 05/04/2023. * she has had intermittent low BP with systolic in the 90s and 80s. This is likely due to her EF of 15%. Meds therefore held today. 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 Home insulin dose on hold due to patient's colitis and nausea and vomiting. * Insulin sliding scale. Checks ACHS. #Hypertension: On Coreg and Lasix and Entresto as well as spironolactone. IV hydralazine as needed. BP meds held today due to hypotension. #CAD: on aspirin and statin as well as plavix #GWYN: On CPAP nightly. #Anxiety and depression: On escitalopram #History of polysubstance abuse: Patient states she is currently clean. Encouraged to maintain sobriety #GERD: PPI DVT prophylaxis: Lovenox Disposition: for likely dc tomorrow if BP stabilises. Medications at Discharge Home Medications aspirin 81 mg capsule 81 mg PO DAILY [facility] 08/10/22 clopidogrel 75 mg tablet 75 mg PO DAILY anti platelet #30 tabs 02/03/23 escitalopram oxalate 10 mg tablet (Lexapro) 10 mg PO DAILY mental health #30 tabs 02/03/23 pantoprazole 40 mg tablet,delayed release 40 mg PO DAILY reflux 04/18/23 sacubitril 24 mg-valsartan 26 mg tablet (Entresto) 1 tab PO BID 30 days #60 tabs 05/07/23 midodrine 2.5 mg tablet 2.5 mg PO BID 11/14/23 atorvastatin 80 mg tablet 80 mg PO QHS cholesterol 12/29/23 carvedilol 3.125 mg tablet 3.125 mg PO BID blood pressure 12/29/23 cholecalciferol (vitamin D3) 50,000 unit PO QWEEK 12/29/23 dapagliflozin propanediol 10 mg tablet (Farxiga) 10 mg PO DAILY 12/29/23 furosemide 40 mg tablet 40 mg PO DAILY 12/29/23 gabapentin 300 mg capsule 300 mg PO TID 12/29/23 insulin glargine 100 unit/mL (3 mL) subcutaneous pen (Lantus Solostar U-100 Insulin) 24 unit subcut QPM 12/29/23 insulin glargine 100 unit/mL (3 mL) subcutaneous pen (Lantus Solostar U-100 Insulin) 40 unit subcut DAILY 12/29/23 insulin lispro 100 unit/mL subcutaneous half-unit pen subcut 12/29/23 spironolactone 25 mg tablet 12.5 mg PO DAILY 12/29/23 cyclobenzaprine 5 mg tablet 5 mg PO TID PRN muscle spasm #30 tabs 01/01/24 ondansetron 4 mg disintegrating tablet 4 mg PO Q8H PRN nausea and vomiting #20 tabs 01/01/24 Hospital Course Operations None Procedures None Summary of Care Provided Minutes Spent on Discharge: 55 Hospital Course: Patient is a 53-year-old female with a past medical history as outlined which included a recent hip fracture for which she had had surgery and had been discharged to a senior living facility was admitted through the ED on 12/29/2023 with a complaint of nausea and vomiting and diarrhea which have been going on for about 3 hours prior to admission. He had been preceded by diffuse abdominal pain the day before admission. He had recently been discharged from [facility] about 4 days prior to this admission. She admitted to sustaining a fall while at the shelter with resultant low back pain. On admission CT of the abdomen and pelvis showed diffuse areas of large bowel wall consistent with colitis and stable bilateral adrenal nodules with stable hepatic lesions suggestive of hemangiomata and acute with subacute fracture of L5 vertebral body. She was admitted and managed for acute colitis as well as the subacute versus acute L5 vertebral body fracture with resultant pain. She was kept n.p.o. and hydrated with IV fluids. She was started on IV Zosyn. She was given p.o. Tylenol and p.o. oxycodone for the L5 fracture. Abdominal pain resolved and she felt much better. She was able to tolerate a clear liquid diet and was advanced to regular diet which she tolerated. Her pain was also well-controlled and she worked well with therapy. Hospital course was complicated by episode of hypotension which patient said was chronic and she was on midodrine for that. She was discharged home on 01/01/2024. She was discharged with a prescription for p.o. Flexeril and p.o. Zofran. She is follow-up with her primary care doctor within 1 to 2 weeks. Patient seen and examined prior to discharge. She had no complaints and had an uneventful night. Review of systems otherwise negative. Labs and vitals reviewed. Medication reviewed and reconciled. Physical Exam Const alert, oriented x3 and no apparent distress General Appearance: cooperative and comfortable Orientation / Consciousness: awake HEENT normocephalic, head/scalp atraumatic, hearing grossly normal bilaterally, moist oral mucous membranes and oropharynx normal Mouth: oral and palatal mucosa normal Eyes PERRL and EOMs intact bilaterally Neck no lymphadenopathy, supple and no JVD Lymph Lymphatic: no lymphadenopathy noted and no lymphedema noted Resp normal respiratory effort, normal air movement and clear to auscultation bilaterally Cardio regular rate, regular rhythm, S1 normal heart sound, S2 normal heart sound and no murmurs GI normal to inspection, nondistended, normoactive bowel sounds, soft to palpation, non-tender and non-distended Extremity normal to inspection, full ROM, normal capillary refill, no clubbing, cyanosis or edema and no calf tenderness General Extremity: no tenderness to palpation of joints or extremities Skin no rashes or lesions noted General Skin Exam: no breakdown Neuro oriented x3, CN's II-XII intact bilaterally, moves all extremities, no focal motor deficits, no sensory deficits noted and deep tendon reflexes 2+ bilaterally Sensorium / Orientation: awake Motor Exam: strength 5/5 throughout and general weakness Psych thought process normal and cooperative Mood & Affect: flat affect Weight / BMI Weight Weight: 184 lb 1.376 oz Body Mass Index (BMI) 28.8 ABG / Lab / Microbiology Data 01/01/24 06:01 01/01/24 06:01 Laboratory: Laboratory Results - last 24 hr 12/31/23 16:38: POC Glucose 155 H 12/31/23 23:30: POC Glucose 97 01/01/24 05:06: POC Glucose 170 H 01/01/24 06:01: WBC 5.9, RBC 3.99 L, Hgb 10.8 L, Hct 33.5 L, MCV 84.0, MCH 27.1, MCHC 32.2, RDW Std Deviation 40.2, RDW Coeff of Spencer 13.2, Plt Count 196, MPV 9.3, Immature Gran % (Auto) 0.300, Neut % (Auto) 62.0, Lymph % (Auto) 23.7, [place] % (Auto) 9.9, Eos % (Auto) 3.2, Baso % (Auto) 0.9, Absolute Neuts (auto) 3.6, Absolute Lymphs (auto) 1.39, Nucleated RBC % 0, Sodium 140, Potassium 3.9, C hloride 109 H, Carbon Dioxide 26.0, Anion Gap 5, BUN 17, Creatinine 1.05 H, Estim Creat Clear Calc 69.62, Est GFR (MDRD) Af Amer 71, Est GFR (MDRD) Non-Af 58 L, BUN/Creatinine Ratio 16.2, Glucose 144 H, Calcium 9.4 01/01/24 10:13: POC Glucose 201 H D/C Instructions Discharge Diet: Low fat / Low cholesterol Discharge Activity: Return to Normal Activity Weight Bearing Status: Weight bearing as tolerated Call your doctor if you observe: Fever of 101 or Higher, Shortness of breath, Dizziness, Swelling in the ankles and Chest pain Meaningful Use Info Meaningful Use Meaningful Use Diagnoses (Choose all that apply): None applicable Ischemic Stroke Statin Dosing Therapy Reference: STATIN DOSE THERAPY REFERENCE: * Patients > 75 years receive moderate or high dose statin therapy. * Patients 75 years or YOUNGER should receive HIGH intensity statin dose unless contraindicated. You will be required to document reason for non-treatment if statin daily dose does not meet guidelines. HIGH DOSE STATIN THERAPY DAILY Atorvastatin > than or = to 40 mg Rosuvastatin > than or = to 20 mg Amlodipine + Atorvastatin > than or = to 2.5/40 mg Ezetimibe + Simvastatin 10/80 mg Simvastatin 80mg Discharge Plan Admission Admit Date/Time: 12/29/23 14:17 Primary Reason for Your Visit: acute colitis, L5 fracture Attending Provider: Talisha Boykin Primary Care Provider: [facility] Ama Finney Consulting Providers: Rosaura Crane Instructions Patient Instructions: ED Understanding Colitis Discharge Orders/Prescriptions Prescriptions: New ondansetron 4 mg tablet,disintegrating 4 mg PO Q8H PRN (Reason: nausea and vomiting) Qty: 20 0RF cyclobenzaprine 5 mg tablet 5 mg PO TID PRN (Reason: muscle spasm) Qty: 30 0RF Continued pantoprazole 40 mg tablet,delayed release (DR/EC) 40 mg PO DAILY aspirin 81 mg Capsule 81 mg PO DAILY clopidogrel 75 mg Tablet 75 mg PO DAILY Qty: 30 0RF Patient Comments: patient stated pretty sure I still take that escitalopram oxalate [Lexapro] 10 mg tablet 10 mg PO DAILY Qty: 30 0RF Entresto 24-26 mg Tablet 1 tab PO BID 30 Days Qty: 60 0RF midodrine 2.5 mg tablet 2.5 mg PO BID carvedilol 3.125 mg tablet 3.125 mg PO BID dapagliflozin propanediol [Farxiga] 10 mg tablet 10 mg PO DAILY spironolactone 25 mg tablet 12.5 mg PO DAILY cholecalciferol (vitamin D3) 50,000 unit PO QWEEK Patient Comments: sunday insulin glargine [Lantus Solostar U-100 Insulin] 100 unit/mL (3 mL) insulin pen 40 unit subcut DAILY insulin glargine [Lantus Solostar U-100 Insulin] 100 unit/mL (3 mL) insulin pen 24 unit subcut QPM insulin lispro 100 unit/mL insulin pen, half-unit subcut furosemide 40 mg Tablet 40 mg PO DAILY atorvastatin 80 mg tablet 80 mg PO QHS gabapentin 300 mg Capsule 300 mg PO TID Referrals / Follow Up: Medical Ama Finney [Primary Care Provider] - 01/08/24 8:30 am Disposition Disposition (needs filled in before D/C Order can be placed): Home, Self Care Charges/Coding Visit Charges Inpatient E&M: 28869 Disch Hosp >30min
--- NOTE | 2024-01-01 13:33 | CASEMGMT ---
Social Work- SW met with pt to provide emotional support and encouragement in working through relationship dynamics with daughter, as pt previously shared that she was having a difficult time communicating with dtr in regards to care needs. SW guided pt through processing emotions and working through potential solutions for situation with dtr. Pt reports that dtr and boyfriend live in her 3 bedroom apartment. Pt reports that she is approved for social security starting in and that she is working on her disability approval. Pt reports that she receives [employer]. Pt reports no community needs. Pt reports that she feels confident in how to address care concerns with dtr. Pt reports no additional needs at this time. SW to remain available to follow. SANDRA Duncan
[2024-01-01 15:25] VITALS: BP 157/80; PULSE 97; RESP 18; TEMP 36.1; O2SAT 99
== END 2024-01-01 15:49 | disposition home or self-care (01) | DRG 249 ==
LOC: ED 13:23 → MS3 14:25
PROVIDERS: Admitting Provider Family Medicine; Emergency Provider Emergency Medicine; Visit Provider Student in an Organized Health Care Education/Training Program
DX: K52.9 Noninfective gastroenteritis and colitis, unspecified (principal); R62.7 Adult failure to thrive; I95.89 Other hypotension; E11.40 Type 2 diabetes mellitus with diabetic neuropathy, unspecified; S32.059A Unspecified fracture of fifth lumbar vertebra, initial encounter for closed fracture; I11.0 Hypertensive heart disease with heart failure; F32.A Depression, unspecified; E11.51 Type 2 diabetes mellitus with diabetic peripheral angiopathy without gangrene; I50.42 Chronic combined systolic (congestive) and diastolic (congestive) heart failure; Z79.4 Long term (current) use of insulin; E78.5 Hyperlipidemia, unspecified; K21.9 Gastro-esophageal reflux disease without esophagitis; I25.10 Atherosclerotic heart disease of native coronary artery without angina pectoris; G47.33 Obstructive sleep apnea (adult) (pediatric); F17.210 Nicotine dependence, cigarettes, uncomplicated; Z89.421 Acquired absence of other right toe(s); F41.9 Anxiety disorder, unspecified; I25.2 Old myocardial infarction; W18.30XA Fall on same level, unspecified, initial encounter; Z68.28 Body mass index [BMI] 28.0-28.9, adult; Z79.02 Long term (current) use of antithrombotics/antiplatelets; Z79.82 Long term (current) use of aspirin; Z79.84 Long term (current) use of oral hypoglycemic drugs; Z79.899 Other long term (current) drug therapy; Z86.718 Personal history of other venous thrombosis and embolism
CPT/HCPCS: 36415; 72170; 73552; 74177; 80048; 80053; 80307; 81001; 82077; 82962; 83690; 83735; 84100; 84145; 85025; 94668; 97110; 97116; 97162; 97166; 97530; 97535; 99252; 99283; 99406; J7030; J7050; Q9967; A4216; G0463; J0744; J2405

== ENCOUNTER 2024-01-10 15:46 | Emergency (ER) | payer MEDICAID, SELFPAY ==
[2024-01-10 15:47] VITALS: BP 151/129; PULSE 109; RESP 18; TEMP 36.7; O2SAT 98; BMI 31.1
--- NOTE | 2024-01-10 15:56 | CT_ITS ---
STUDY: CT ABDOMEN AND PELVIS WITH CONTRAST REASON FOR EXAM: Female, 53 years old. Nausea, vomiting, diarrhea, history of recent coli RADIATION DOSAGE (If Supplied By Facility): CTDIvol = ( 17.72 ) mGy, DLP = ( 1281.88 ) mGycm TECHNIQUE: Transaxial images were obtained from the dome of the diaphragm to the symphysis pubis without oral contrast. IV 100mL Isovue-300 was administered. Sagittal and coronal images were reconstructed. Individualized dose optimization techniques were used for this CT. The protocol utilizes one or more of the following dose reduction techniques: automated exposure control, adjustment of mA and/or kV according to patient size,and/or use of iterative reconstruction technique. COMPARISON: CT abdomen pelvis December 29, 2023 FINDINGS: The visualized lung bases are unremarkable. Calcific coronary artery disease. Trace pericardial effusion. Stable 12 mm hypodense lesion right lobe of the liver. Gallbladder surgically absent. Normal spleen. Normal pancreas. Stable Bilateral adrenal nodules measuring 2 cm on the right and 1.8 cm on the left. Normal right kidney. Simple left renal cyst measures 2.2 cm. No further follow-up required as it appears simple/benign. Normal visualized stomach. Normal small intestine. Normal colon. Appendix not identified. Calcified plaque along the aorta and its branches. Dense right common femoral artery. Normal inferior vena cava. Normal retroperitoneum. Normal urinary bladder. Uterus normal. Normal abdominal wall. Diffuse demineralization. Hardware transfixing a subtrochanteric fracture on the right incompletely healed. Healing fracture inferior pubic ramus on the right. Mild compression fracture L5 vertebral body. CT/Abdomen/Pelvis W IV Cont ONLY IMPRESSION: Recent appearing fractures right pelvis, L5, and right hip. Otherwise no acute disease. Electronically Signed: Balta Perry MD at 18:04 EDT ,
--- NOTE | 2024-01-10 15:57 | ED.VIS.GI ---
HPI HPI - GI History of Present Illness Chief Complaint: Abd Pain Narrative Narrative: 53-year-old female with multiple medical problems presents via EMS with nausea, vomiting, and diarrhea that began last evening. Of note, she was recently hospitalized for colitis. She had been at [facility], and discharged after hip surgery. She had noted fall while she was at the nursing facility, and she was diagnosed with recently an L5 vertebral compression fracture. She had been admitted for colitis which improved with IV antibiotics and antiemetics. She stated to the cloud operations engineer that she wants to be admitted so she can feel better. She had been doing well and followed up with her primary care physician on Sunday, 3 days ago. However, last evening, she states she had diarrhea again approximately 5 times, the same with her vomiting without any blood in her emesis or stool. She is having pain in her back from her L5 compression fracture. She denies any fevers or chills, no exacerbating or alleviating factors. [facility] Medical History L5 vertebral fracture BiPAP (biphasic positive airway pressure) dependence Coronary artery disease On home oxygen therapy Rheumatoid arthritis Sleep apnea Smoker DVT (deep venous thrombosis) Seizures Amputation toe Psychiatric disorder Ischemic cardiomyopathy Diabetes type 2, uncontrolled Essential hypertension Substance abuse Alcohol abuse Depression Osteoporosis GERD (gastroesophageal reflux disease) Pulmonary embolism Myocardial infarct Pericardial effusion Hypoxemia Acute dyspnea Aftercare following surgery of the circulatory system Hx of fracture of humerus Toe amputee Hyperlipidemia CHF (congestive heart failure) CAD (coronary artery disease), [place] coronary artery Home Medications ?Medication ?Instructions ?Recorded ?Last Taken ?Type aspirin 81 mg capsule 81 mg PO DAILY heart health 08/10/22 02/01/23 History clopidogrel 75 mg tablet 75 mg PO DAILY anti platelet #30 02/03/23 Unknown Rx tabs escitalopram oxalate 10 mg tablet 10 mg PO DAILY mental health #30 02/03/23 Unknown Rx (Lexapro) tabs pantoprazole 40 mg tablet,delayed 40 mg PO DAILY reflux 04/18/23 Unknown History release sacubitril 24 mg-valsartan 26 mg 1 tab PO BID 30 days #60 tabs 05/07/23 Unknown Rx tablet (Entresto) midodrine 2.5 mg tablet 2.5 mg PO BID 11/14/23 Unknown History atorvastatin 80 mg tablet 80 mg PO QHS cholesterol 12/29/23 Unknown History carvedilol 3.125 mg tablet 3.125 mg PO BID blood pressure 12/29/23 Unknown History cholecalciferol (vitamin D3) 50,000 unit PO QWEEK 12/29/23 Unknown History dapagliflozin propanediol 10 mg 10 mg PO DAILY 12/29/23 Unknown History tablet (Farxiga) furosemide 40 mg tablet 40 mg PO DAILY 12/29/23 Unknown History gabapentin 300 mg capsule 300 mg PO TID 12/29/23 Unknown History insulin glargine 100 unit/mL (3 24 unit subcut QPM 12/29/23 Unknown History mL) subcutaneous pen (Lantus Solostar U-100 Insulin) insulin glargine 100 unit/mL (3 40 unit subcut DAILY 12/29/23 Unknown History mL) subcutaneous pen (Lantus Solostar U-100 Insulin) insulin lispro 100 unit/mL subcut 12/29/23 Unknown History subcutaneous half-unit pen spironolactone 25 mg tablet 12.5 mg PO DAILY 12/29/23 Unknown History cyclobenzaprine 5 mg tablet 5 mg PO TID PRN muscle spasm #30 01/01/24 Unknown Rx tabs ondansetron 4 mg disintegrating 4 mg PO Q8H PRN nausea and 01/01/24 Unknown Rx tablet vomiting #20 tabs carvedilol 12.5 mg tablet 12.5 mg PO BID 01/10/24 Unknown History ondansetron 4 mg disintegrating 4 mg PO Q8H PRN PRN Nausea #15 tabs 01/10/24 Unknown Rx tablet Allergy/AdvReac Type Severity Reaction Status Date / Time latex Allergy Hives Verified 01/10/24 15:47 Family History Mother Thyroid disorder Diabetes Hypertension Grandmother Diabetes Uncle Diabetes Aunt Diabetes Other Heart disease Surgical History History of cholecystectomy History of appendectomy History of cholecystectomy Social History household members: spouse and children housing: house Smoking Status: Current every day smoker tobacco type: cigarettes alcohol intake: never substance use type: marijuana what type of physical activity do you participate in: none do you feel safe at home: Yes ROS ROS ED ROS Narrative Constitutional: No fever, no chills. HEENT: No sore throat. No neck pain. No loss of vision. No rhinorrhea. Cardiovascular: No chest pain. No palpitations. No pedal edema. Respiratory: No cough, no shortness of breath. Abdominal: Positive abdominal pain. Positive nausea, vomiting, and diarrhea. Genitourinary: No dysuria. No hematuria. Musculoskeletal: No myalgias. No arthralgias. Positive low back pain. Neurologic: No headaches. No dizziness. No lightheadedness. Skin: No rash. No change in color. Psychiatric: No depression. No anxiety. EXAM Physical Exam Narrative Exam Narrative: Afebrile. Vital signs noted. Nontoxic-appearing. Cardiovascular examination reveals a mild tachycardia. Lungs are clear to auscultation bilaterally. Abdomen soft and nontender with normoactive bowel sounds. Neurological examination is nonfocal and nonlateralizing. She is moving all extremities. She is tearful on examination. Const Vital Signs: 01/10/24 15:47 01/10/24 17:47 01/10/24 19:00 Temperature 98.1 F 97.5 F L 98.5 F Temperature Source Temporal Oral Oral Pulse Rate 109 H 105 H 110 H Respiratory Rate 18 17 15 Blood Pressure 151/129 H 158/73 H 172/87 H Blood Pressure Mean 136 101 115 Pulse Ox 98 96 98 Oxygen Delivery Method Room Air Room Air Room Air MDM MDM MDM Narrative Medical decision making narrative: I reviewed her prior records. In fact I taking care of her last time she was in the emergency department, and she was admitted for colitis. I reviewed her discharge summary. She had improved with Zofran and Zosyn. She states he did not give her anything to take at home for her back pain, and additionally her primary care provider did not either when she was seen 3 days ago. Differential diagnosis includes worsening colitis versus obstruction versus development of abscess. For her chronic back pain, and her L5 fracture she was administered morphine and ondansetron. She was bolused normal saline. I will obtain a CBC and BMP to look for dehydration and repeat a CT of the abdomen pelvis with IV contrast. I reviewed her laboratory work and she has normal white count of 10.9, hemoglobin normal at 12.5, hematocrit 37.0, platelet count normal at 242. While sodium is slightly low 132, she was bolused normal saline intravenously, potassium normal at 4.0 with chloride 100. BUN normal at 10 with creatinine 0.89, glucose is elevated at 333 but she has a normal anion gap of 7. Urinalysis is negative for infection. I do not feel that antibiotics are indicated. I reviewed the radiology report of the CT of the abdomen and pelvis and there is no evidence of colitis or obstruction. There are the aforementioned fractures. For analgesia she had been given 2 doses of morphine and ondansetron. At this point in time, I do not feel she meets any observation or admission criteria. She will be given a prescription for Zofran and will follow-up with her primary care provider. Disposition is discharged home in stable condition. History & Record Review Discussion w/independent historian: Patient Additional record(s) reviewed:: Prior ED visit and Prior labs Lab Data Attestation: I reviewed the patient's lab results. Labs: Laboratory Results - last 24 hr 01/10/24 01/10/24 16:15 17:15 WBC 10.9 RBC 4.53 Hgb 12.5 Hct 37.0 MCV 81.7 MCH 27.6 MCHC 33.8 RDW Std Deviation 39.7 RDW Coeff of [place] 13.4 Plt Count 242 MPV 9.2 Immature Gran % (Auto) 0.400 Neut % (Auto) 80.7 H Lymph % (Auto) 11.5 L [place] % (Auto) 5.1 Eos % (Auto) 1.9 Baso % (Auto) 0.4 Absolute Neuts (auto) 8.8 H Absolute Lymphs (auto) 1.25 Nucleated RBC % 0 Sodium 132 L Potassium 4.0 Chloride 100 Carbon Dioxide 25.0 Anion Gap 7 BUN 10 Creatinine 0.89 Estim Creat Clear Calc 82.34 Est GFR (MDRD) Af Amer 85 Est GFR (MDRD) Non-Af 70 BUN/Creatinine Ratio 11.2 Glucose 333 H Calcium 9.5 Urine Color Yellow Urine Clarity Clear Urine pH 7.0 Ur Specific [place] 1.010 Urine Protein 100 H Urine Glucose (UA) 1000 H Urine Ketones Negative Urine Occult Blood 50 H Urine Nitrite Negative Urine Bilirubin Negative Urine Urobilinogen Normal Ur Leukocyte Esterase Negative Urine RBC 0-5 SEEN Urine WBC 0-5 SEEN Ur Squamous Epith Cells 0 SEEN Urine Bacteria 0 SEEN Urine Mucus 0 SEEN Radiography Diagnostic Testing: Clinical Impression(s) from Imaging Studies Abdomen/Pelvis CT 01/10/24 15:56 IMPRESSION: Recent appearing fractures right pelvis, L5, and right hip. Otherwise no acute disease. Electronically Signed: Balta Perry MD at 18:04 EDT , Discharge Plan Triage Chief Complaint: Abd Pain ED Provider: Jeremiah Rawls Dx/Rx/DC Orders Clinical Impression: Vomiting and diarrhea, Chronic pain, Abdominal pain, L5 vertebral fracture Instructions: ED Abdominal Pain Unkn Cause Fem, ED Diet Vomiting Diarrhea Prescriptions: New ondansetron 4 mg tablet,disintegrating 4 mg PO Q8H PRN PRN (Reason: Nausea) Qty: 15 0RF No Action pantoprazole 40 mg tablet,delayed release (DR/EC) 40 mg PO DAILY aspirin 81 mg Capsule 81 mg PO DAILY clopidogrel 75 mg Tablet 75 mg PO DAILY Qty: 30 0RF Patient Comments: patient stated pretty sure I still take that escitalopram oxalate [Lexapro] 10 mg tablet 10 mg PO DAILY Qty: 30 0RF Entresto 24-26 mg Tablet 1 tab PO BID 30 Days Qty: 60 0RF midodrine 2.5 mg tablet 2.5 mg PO BID carvedilol 3.125 mg tablet 3.125 mg PO BID dapagliflozin propanediol [Farxiga] 10 mg tablet 10 mg PO DAILY spironolactone 25 mg tablet 12.5 mg PO DAILY cholecalciferol (vitamin D3) 50,000 unit PO QWEEK Patient Comments: sunday insulin glargine [Lantus Solostar U-100 Insulin] 100 unit/mL (3 mL) insulin pen 40 unit subcut DAILY insulin glargine [Lantus Solostar U-100 Insulin] 100 unit/mL (3 mL) insulin pen 24 unit subcut QPM insulin lispro 100 unit/mL insulin pen, half-unit subcut furosemide 40 mg Tablet 40 mg PO DAILY atorvastatin 80 mg tablet 80 mg PO QHS gabapentin 300 mg Capsule 300 mg PO TID ondansetron 4 mg tablet,disintegrating 4 mg PO Q8H PRN (Reason: nausea and vomiting) Qty: 20 0RF cyclobenzaprine 5 mg tablet 5 mg PO TID PRN (Reason: muscle spasm) Qty: 30 0RF carvedilol 12.5 mg tablet 12.5 mg PO BID Primary Care Provider: Medical Ama Finney Referrals: [facility] Reg,Ama Neff [Primary Care Provider] - As soon as possible Print Language: Croatian Disposition Disposition: Home, Self Care
[2024-01-10] MEDS: Ondansetron 4 MG/2 ML Vial IV ×2 (16:10→17:46)
[2024-01-10] MEDS: 0.9% Normal Saline (1000mL) 1,000 ML 999 ML IV (16:11)
[2024-01-10] MEDS: Morphine 4 MG/ML Syringe IV ×2 (16:11→17:49)
[2024-01-10 16:27] LABS: Absolute Lymphocyte Count 1.25 X10^3/uL (0.83-4.51); Absolute Neutrophil Count 8.8 X10^3/uL (2.0-7.7); Basophil# 0.04 X10^3/uL; Basophil% 0.4 % (0-1); Eosinophil# 0.21 X10^3/uL; Eosinophils% 1.9 % (0-5); Hemoglobin 12.5 g/dL (12.0-15.0); Lymphocyte # 1.25 X10^3/ul (0.83-4.51); Lymphocyte % 11.5 % (19-41); Mean Corp Hgb Conc 33.8 g/dL (32-36); Mean Corpuscular Hgb 27.6 pg (27.0-32.0); Mean Corpuscular Volume 81.7 fL (81-99); Mean Platelet Vol. 9.2 fl (6.2-12.0); Monocyte# 0.55 X10^3/uL; Monocyte% 5.1 % (0-10); NRBC Flagged by Analyzer 0 % (0-5); Neutrophil # 8.76 X10^3/uL (2.7-7.7); Neutrophil % 80.7 % (47-70); Platelet Count 242 K/mm3 (150-450); RBC Distribution Width CV 13.4 % (11.6-14.6); RBC Distribution Width SD 39.7 fl (35.1-43.9); Red Blood Count 4.53 M/mm3 (4.2-5.4); White Blood Count 10.9 K/mm3 (4.4-11.0)
[2024-01-10 16:37] LABS: Anion Gap 7 (5-15); BUN 10 mg/dL (7-18); BUN/Creat Ratio 11.2 RATIO (10-20); Calcium,Total 9.5 mg/dL (8.5-10.1); Chloride 100 mmol/L (98-107); Creatinine, Serum 0.89 mg/dL (0.55-1.02); EST Glomerular Filtration Rate 70 mL/min (>60); Est Glom Filt Rate - Afr Amer 85 mL/min (>60); Estimated Creatinine Clearance 82.34 ml/min; Glucose 333 mg/dL (74-106); Sodium Level 132 mmol/L (136-145)
[2024-01-10 17:22] LABS: Bacteria 0 SEEN /hpf (None Seen); Mucous, Urine 0 SEEN /hpf (<or=2+); Squamous Epithelial Cells - UA 0 SEEN /hpf (5-10)
[2024-01-10 17:33] LABS: Color, Urine Yellow (Yellow); Glucose, Dipstick 1000 mg/dl (Normal); Ketone-Dipstick Negative (Negative); Leukocyte Esterase-Dipstick Negative /ul (Negative); Nitrite-Dipstick Negative (Negative); Occult Blood-Urine 50 /ul (Negative); Protein-Dipstick 100 mg/dl (Negative); Urine Bilirubin Dipstick Negative (Negative); Urine Clarity Clear (Clear); Urine Urobilinogen Normal (Normal)
[2024-01-10 17:46] LABS: Red Blood Cells-Urine 0-5 SEEN /hpf (0-5); White Blood Cells 0-5 SEEN /hpf (0-5)
[2024-01-10 17:47] VITALS: BP 158/73; PULSE 105; RESP 17; TEMP 36.4; O2SAT 96
[2024-01-10 19:00] VITALS: BP 172/87; PULSE 110; RESP 15; TEMP 36.9; O2SAT 98
[2024-01-10 19:32] VITALS: BP 164/96; PULSE 105; RESP 19; TEMP 36.9; O2SAT 96
== END 2024-01-10 19:46 | disposition home or self-care (01) ==
PROVIDERS: Emergency Provider Emergency Medicine; Visit Provider Emergency Medicine
DX: R10.9 Unspecified abdominal pain (principal); S32.059A Unspecified fracture of fifth lumbar vertebra, initial encounter for closed fracture; I11.0 Hypertensive heart disease with heart failure; I50.9 Heart failure, unspecified; E11.9 Type 2 diabetes mellitus without complications; Z79.4 Long term (current) use of insulin; R11.10 Vomiting, unspecified; R19.7 Diarrhea, unspecified; X58.XXXA Exposure to other specified factors, initial encounter; I25.10 Atherosclerotic heart disease of native coronary artery without angina pectoris; I25.2 Old myocardial infarction; G89.29 Other chronic pain; F17.210 Nicotine dependence, cigarettes, uncomplicated; Z90.49 Acquired absence of other specified parts of digestive tract; Z79.02 Long term (current) use of antithrombotics/antiplatelets; Z79.82 Long term (current) use of aspirin; Z79.899 Other long term (current) drug therapy
CPT/HCPCS: 74177; 80048; 81001; 85025; 96361; 96374; 96375; 96376; 99283; Q9967; A4216; J2405

== ENCOUNTER 2024-02-14 12:37 | Observation (INO) | payer MEDICAID, SELFPAY ==
[2024-02-14] VITALS (7 sets, daily range): BP systolic 139–162; BP diastolic 77–94; PULSE 72–113; RESP 16–18; TEMP 36.5–37.1; O2SAT 94–98; BMI 27.3; BMI 28.0
--- NOTE | 2024-02-14 13:09 | CT_ITS ---
STUDY: CT ABDOMEN AND PELVIS WITH CONTRAST REASON FOR EXAM: Female, 53 years old. LLQ pain, back pain -- remote L5 fx RADIATION DOSAGE (If Supplied By Facility): CTDIvol = ( 20.93 ) mGy, DLP = ( 1424.06 ) mGycm TECHNIQUE: Transaxial images were obtained from the dome of the diaphragm to the symphysis pubis without oral contrast. IV 100mL Isovue-370 was administered. Sagittal and coronal images were reconstructed. Individualized dose optimization techniques were used for this CT. COMPARISON: Comparison is made with prior study January 10, 2024. FINDINGS: Stable mild increased markings at the lung base suggestive of possible scarring. Minimal anterior pericardial thickening. Coronary artery calcification. Stable 1.8 cm hypodense nodule in the anterior upper aspect of the right lateral malleolus suggestive of possibly meningioma. This is unchanged. There are surgical clips in the gallbladder fossa consistent with a prior cholecystectomy. Normal spleen. Normal pancreas. Stable bilateral adrenal nodules. Normal right kidney. Stable 2.4 cm cyst in the upper pole of the left kidney. Normal visualized stomach. Normal small intestine. Residual mild circumferential wall thickening of the left hemicolon suggestive of possible residual colitis. This has improved as compared to prior study. Patient status post appendectomy. There is diffuse atherosclerotic calcification of the abdominal aorta, without a demonstrated aneurysm. Normal inferior vena cava. Normal retroperitoneum. Normal urinary bladder. Normal abdominal wall. Progressive loss of height of the superior endplate of the L3 and L4 vertebrae. Minimal loss of height of the superior endplate of the L5 vertebrae. Prior ORIF of the right intertrochanteric fracture. CT/Abdomen/Pelvis W IV Cont ONLY IMPRESSION: Stable bilateral adrenal nodules. Residual circumferential wall thickening of the left hemicolon suggestive of residual colitis. There has been improvement as compared to prior study. Progressive loss of height of the superior endplate of the L3 and L4 vertebrae. Electronically Signed: Ryan Tejeda MD at 15:07 EDT ,
--- NOTE | 2024-02-14 13:13 | ED.VIS.BACK ---
HPI History of Present Illness Chief Complaint: Back Informant: patient Narrative Narrative: Presents by EMS from home worsening nontraumatic low back pain for the past month and a half. No radicular pain. No loss of bowel or bladder control. She states a month and a half ago admitted for colitis on CT had a lumbar fracture. She states she was not sent home with antibiotics. Is admitted for 3 days. She still has diarrhea and left lower quadrant pain no fevers or chills. However also states she is never sent with any pain medicines. She has been trying call appointment with However has not seen 1 since she was discharged. Allergies to latex. [facility] Medical History L5 vertebral fracture BiPAP (biphasic positive airway pressure) dependence Coronary artery disease On home oxygen therapy Rheumatoid arthritis Sleep apnea Smoker DVT (deep venous thrombosis) Seizures Amputation toe Psychiatric disorder Ischemic cardiomyopathy Diabetes type 2, uncontrolled Essential hypertension Substance abuse Alcohol abuse Depression Osteoporosis GERD (gastroesophageal reflux disease) Pulmonary embolism Myocardial infarct Pericardial effusion Hypoxemia Acute dyspnea Aftercare following surgery of the circulatory system Hx of fracture of humerus Toe amputee Hyperlipidemia CHF (congestive heart failure) CAD (coronary artery disease), [place] coronary artery Home Medications ?Medication ?Instructions ?Recorded ?Last Taken ?Type aspirin 81 mg capsule 81 mg PO DAILY heart health 08/10/22 02/01/23 History clopidogrel 75 mg tablet 75 mg PO DAILY anti platelet #30 02/03/23 Unknown Rx tabs escitalopram oxalate 10 mg tablet 10 mg PO DAILY mental health #30 02/03/23 Unknown Rx (Lexapro) tabs pantoprazole 40 mg tablet,delayed 40 mg PO DAILY reflux 04/18/23 Unknown History release sacubitril 24 mg-valsartan 26 mg 1 tab PO BID 30 days #60 tabs 05/07/23 Unknown Rx tablet (Entresto) midodrine 2.5 mg tablet 2.5 mg PO BID 11/14/23 Unknown History atorvastatin 80 mg tablet 80 mg PO QHS cholesterol 12/29/23 Unknown History carvedilol 3.125 mg tablet 3.125 mg PO BID blood pressure 12/29/23 Unknown History dapagliflozin propanediol 10 mg 10 mg PO DAILY 12/29/23 Unknown History tablet (Farxiga) furosemide 40 mg tablet 40 mg PO DAILY 12/29/23 Unknown History gabapentin 300 mg capsule 300 mg PO TID 12/29/23 Unknown History insulin glargine 100 unit/mL (3 24 unit subcut QPM 12/29/23 Unknown History mL) subcutaneous pen (Lantus Solostar U-100 Insulin) insulin glargine 100 unit/mL (3 40 unit subcut DAILY 12/29/23 Unknown History mL) subcutaneous pen (Lantus Solostar U-100 Insulin) insulin lispro 100 unit/mL subcut 12/29/23 Unknown History subcutaneous half-unit pen spironolactone 25 mg tablet 12.5 mg PO DAILY 12/29/23 Unknown History cyclobenzaprine 5 mg tablet 5 mg PO TID PRN muscle spasm #30 01/01/24 Unknown Rx tabs ondansetron 4 mg disintegrating 4 mg PO Q8H PRN nausea and 01/01/24 Unknown Rx tablet vomiting #20 tabs carvedilol 12.5 mg tablet 12.5 mg PO BID 01/10/24 Unknown History DIC 2%/RINKU 6%/LIDOC 2% IN 1 - 2 pump subdermal Q6H PRN FOR 02/14/24 Unknown History saltsable FEET cholecalciferol (vitamin D3) 1,250 1,250 mcg PO WE 02/14/24 Unknown History mcg (50,000 unit) tablet Allergy/AdvReac Type Severity Reaction Status Date / Time latex Allergy Hives Verified 01/10/24 15:47 Family History Mother Thyroid disorder Diabetes Hypertension Grandmother Diabetes Uncle Diabetes Aunt Diabetes Other Heart disease Surgical History History of cholecystectomy History of appendectomy History of cholecystectomy Social History household members: spouse and children housing: house Smoking Status: Current every day smoker tobacco type: cigarettes alcohol intake: never substance use type: marijuana what type of physical activity do you participate in: none do you feel safe at home: Yes ROS ROS ED Constitutional Constitutional ED: Denies chills, fever(s) or sweats Eyes Eyes: Denies change in vision ENT ENT ED: Denies dysphagia or sore throat Cardiovascular Cardiovascular: Denies chest pain, leg edema, palpitations or racing heartbeat Respiratory/Chest Respiratory/Chest: Denies cough, dyspnea or dyspnea on exertion Gastrointestinal Gastrointestinal: Reports abdominal pain and diarrhea; Denies nausea or vomiting Genitourinary Genitourinary ED: Denies dysuria, hematuria or urinary frequency Musculoskeletal Musculoskeletal: Reports back pain; Denies extremity pain or neck pain Integumentary Denies rash or wounds Neurologic Neurologic: Denies headache(s), paresthesias or weakness EXAM Physical Exam Const Vital Signs: 02/14/24 12:39 02/14/24 16:05 02/14/24 16:06 Temperature 97.8 F 98.1 F 98.1 F Temperature Source Temporal Oral Pulse Rate 113 H 80 80 Respiratory Rate 18 16 16 Blood Pressure 142/88 H 150/89 H 150/89 H Blood Pressure Mean 106 109 109 Pulse Ox 98 97 97 Oxygen Delivery Method Room Air Room Air Positive well nourished and well developed Constitutional Narrative: Tearful when examining the patient. General Appearance ED: well developed HEENT HEENT Narrative: Mild dry mucosal membranes. normocephalic and atraumatic Eyes EOMs intact bilaterally and conjunctivae normal General Eye ED: Yes normal appearance of both eyes Neck no lymphadenopathy and supple General: Negative for tenderness Chest Wall Chest: Negative for tenderness Resp normal respiratory effort and normal air movement Effort and Inspection: symmetric chest movement; Negative for respiratory distress Cardio regular rhythm and no murmurs Rate: tachycardic Peripheral Pulses: pulses 2+ throughout GI normal to inspection, nondistended, normoactive bowel sounds GI Narrative: Tender palpation left lower quadrant without guarding or rebound. Palpation: Negative for guarding or rebound tenderness present Back/Spine no CVA tenderness Back/Spine Narrative: Midline L5 tenderness, no step-offs. Straight leg test negative bilaterally. 1+ patellar reflex bilaterally. Extremity normal to inspection Extremity Narrative: Previous left toe amputations. General Extremety ED: Negative for edema or tenderness General Extremity: Negative for edema Neuro oriented x3 and no sensory deficits noted Sensorium / Orientation: awake and alert Skin no rashes or lesions noted and no wounds MDM MDM MDM Narrative Medical decision making narrative: Interventions / MDM: Differential diagnosis: Colitis, vertebral compression fracture, electrolyte abnormalities. Diagnosis considered but do not suspect: Complicated diverticulitis however CT negative for this. My EKG interpretation: N/A Imaging independently reviewed and interpreted by myself: CT abdomen pelvis IV contrast: Residual colitis left hemicolon, no abscess or perforations. There is new L3 compression fracture noted. Review of her old imaging she had a previous L5 and L4 fracture. It is also read by radiology. External documents reviewed: December 28 CT scan diffuse thickening large bowel consistent with colitis. Admitted for 3 days was on IV Zosyn. She had L5 superior endplate fracture at that time treated with oxycodone's. She was discharged with Zofran and cyclobenzaprine. She was seen January 09, CT scan was performed no thickening of the colon at that time. Noted L5 slight compression fracture per radiology. Apparently she did have a fall that led to her evaluation at the nursing facility that led to her findings of injury. Test considered but not ordered:N/A ED course: Patient persistent low back pain. Previous CT is reviewed had a superior endplate fracture of L5. Still has left lower quadrant pain for the last month and a half stating she was not sent home with antibiotics. Will check labs fluids were given pain medicine antiemetics. Will recheck CT with her left lower quadrant pain in her low back pain. 1530: Labs normal white count. Creatinine normal potassium 3.2. She has been having daily diarrhea. She states twice a day usually have accidents at night. Nonbloody per patient. CT scan has residual colitis. 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 From reviewing records confirm with her she appears to may have been some therapeutically treated since she was on 3 days of treatment. Restarted on Rocephin and Flagyl. Oral potassium was given. Additional pain medicines as noted new L3 compression fracture. She has no radicular symptoms. No cauda equina symptoms. Still tearful on exam. With her pain, will discuss with hospitalist for admission. 1545: I spoke with hospitalist Dr. Adames, with concerns. He will review patient's notes, he will come down to evaluate the patient and help with disposition plans. 1610: Patient fed by hospitalist. Will admit to medical floor for treatment. Re-evaluation: stable Disposition discussed with patient/family/significant other: Patient Case discussed with consulting clinician: Hospitalist This note was generated with [employer], [employer] dictation software. It may contain incorrect words, spelling, and punctuation that were not noted in checking the note before signing. Lab Data Attestation: I reviewed the patient's lab results. Labs: Laboratory Results - last 24 hr 02/14/24 02/14/24 02/14/24 13:46 13:46 14:18 WBC Cancelled 7.8 Corrected WBC Cancelled RBC Cancelled 4.61 Hgb Cancelled 12.3 Hct Cancelled 38.9 MCV Cancelled 84.4 MCH Cancelled 26.7 L MCHC Cancelled 31.6 L RDW Std Deviation Cancelled 42.3 RDW Coeff of Spencer Cancelled 13.8 Plt Count Cancelled 243 MPV Cancelled 9.4 Immature Gran % (Auto) Cancelled 0.400 Neut % (Auto) Cancelled 77.8 H Lymph % (Auto) Cancelled 12.6 L Wilkin % (Auto) Cancelled 6.9 Eos % (Auto) Cancelled 1.5 Baso % (Auto) Cancelled 0.8 Absolute Neuts (auto) Cancelled 6.1 Absolute Lymphs (auto) Cancelled 0.99 Total Counted Cancelled Neutrophils % (Manual) Cancelled Band Neutrophils % Cancelled Lymphocytes % (Manual) Cancelled Monocytes % (Manual) Cancelled Eosinophils % (Manual) Cancelled Basophils % (Manual) Cancelled Metamyelocytes % Cancelled Myelocytes % Cancelled Promyelocytes % Cancelled Blast Cells % Cancelled Plasma Cell % (Manual) Cancelled Other Cells % Cancelled Nucleated RBC % Cancelled 0 Nucleated RBCs/100 WBC Cancelled Differential Comment Cancelled Diff Path Review Cancelled Hypersegmented Neuts Cancelled Atypical Lymphocytes Cancelled Reactive Lymphocytes Cancelled Smudge Cells Cancelled Toxic Granulation Cancelled Toxic Vacuolation Cancelled Dohle Bodies Cancelled [place] Rods Cancelled Platelet Estimate Cancelled Plt Morphology Comment Cancelled RBC Morphology Cancelled Cancelled Polychromasia Cancelled Hypochromasia Cancelled Basophilic Stippling Cancelled Anisocytosis Cancelled Microcytosis Cancelled Macrocytosis Cancelled Spherocytes Cancelled Sickle Cells Cancelled Target Cells Cancelled Tear Drop Cells Cancelled Ovalocytes Cancelled Stomatocytes Cancelled [place] Bodies Cancelled Lore Cells Cancelled Bite Cells Cancelled Crenated Cell Cancelled Acanthocytes (Spur) Cancelled Rouleaux Cancelled Schistocytes Cancelled Sodium 133 L Potassium 3.2 L Chloride 102 Carbon Dioxide 24.0 Anion Gap 7 BUN 6 L Creatinine 0.66 Est GFR (MDRD) Af Amer 120 Est GFR (MDRD) Non-Af 99 BUN/Creatinine Ratio 9.0 L Glucose 257 H Calcium 8.9 Radiography Diagnostic Testing: Clinical Impression(s) from Imaging Studies Abdomen/Pelvis CT 02/14/24 13:09 IMPRESSION: Stable bilateral adrenal nodules. Residual circumferential wall thickening of the left hemicolon suggestive of residual colitis. There has been improvement as compared to prior study. Progressive loss of height of the superior endplate of the L3 and L4 vertebrae. Electronically Signed: Ryan Tejeda MD at 15:07 EDT , Discharge Plan Triage Chief Complaint: Back ED Provider: Zack Card Dx/Rx/DC Orders Clinical Impression: Colitis, Diarrhea, Hypokalemia, Closed compression fracture of L3 vertebra Prescriptions: No Action pantoprazole 40 mg tablet,delayed release (DR/EC) 40 mg PO DAILY aspirin 81 mg Capsule 81 mg PO DAILY clopidogrel 75 mg Tablet 75 mg PO DAILY Qty: 30 0RF Patient Comments: patient stated pretty sure I still take that escitalopram oxalate [Lexapro] 10 mg tablet 10 mg PO DAILY Qty: 30 0RF Entresto 24-26 mg Tablet 1 tab PO BID 30 Days Qty: 60 0RF midodrine 2.5 mg tablet 2.5 mg PO BID carvedilol 3.125 mg tablet 3.125 mg PO BID dapagliflozin propanediol [Farxiga] 10 mg tablet 10 mg PO DAILY spironolactone 25 mg tablet 12.5 mg PO DAILY insulin glargine [Lantus Solostar U-100 Insulin] 100 unit/mL (3 mL) insulin pen 40 unit subcut DAILY insulin glargine [Lantus Solostar U-100 Insulin] 100 unit/mL (3 mL) insulin pen 24 unit subcut QPM insulin lispro 100 unit/mL insulin pen, half-unit subcut furosemide 40 mg Tablet 40 mg PO DAILY atorvastatin 80 mg tablet 80 mg PO QHS gabapentin 300 mg Capsule 300 mg PO TID ondansetron 4 mg tablet,disintegrating 4 mg PO Q8H PRN (Reason: nausea and vomiting) Qty: 20 0RF cyclobenzaprine 5 mg tablet 5 mg PO TID PRN (Reason: muscle spasm) Qty: 30 0RF carvedilol 12.5 mg tablet 12.5 mg PO BID cholecalciferol (vitamin D3) 1,250 mcg (50,000 unit) tablet 1,250 mcg PO WE DIC 2%/RINKU 6%/LIDOC 2% IN saltsable cream 1 - 2 pump subdermal Q6H PRN (Reason: FOR FEET) Primary Care Provider: Ama Dickey Referrals: [facility] Ama Finney [Primary Care Provider] - Print Language: Sami
[2024-02-14] MEDS: Ondansetron 4 MG/2 ML Vial IV (13:39)
[2024-02-14] MEDS: 0.9% Normal Saline (500mL Bag) 500 ML 1000 ML IV (13:39)
[2024-02-14] MEDS: Morphine 4 MG/ML Syringe IV ×2 (13:39→15:50)
[2024-02-14 14:22] LABS: Anion Gap 7 (5-15); BUN 6 mg/dL (7-18); Calcium,Total 8.9 mg/dL (8.5-10.1); Chloride 102 mmol/L (98-107); Creatinine, Serum 0.66 mg/dL (0.55-1.02); EST Glomerular Filtration Rate 99 mL/min (>60); Est Glom Filt Rate - Afr Amer 120 mL/min (>60); Glucose 257 mg/dL (74-106); Potassium 3.2 mmol/L (3.5-5.1); Sodium Level 133 mmol/L (136-145)
[2024-02-14 14:27] LABS: Absolute Lymphocyte Count 0.99 X10^3/uL (0.83-4.51); Absolute Neutrophil Count 6.1 X10^3/uL (2.0-7.7); Basophil# 0.06 X10^3/uL; Basophil% 0.8 % (0-1); Eosinophil# 0.12 X10^3/uL; Eosinophils% 1.5 % (0-5); Hematocrit 38.9 % (37-47); Hemoglobin 12.3 g/dL (12.0-15.0); Lymphocyte # 0.99 X10^3/ul (0.83-4.51); Lymphocyte % 12.6 % (19-41); Mean Corp Hgb Conc 31.6 g/dL (32-36); Mean Corpuscular Hgb 26.7 pg (27.0-32.0); Mean Corpuscular Volume 84.4 fL (81-99); Mean Platelet Vol. 9.4 fl (6.2-12.0); Monocyte# 0.54 X10^3/uL; Monocyte% 6.9 % (0-10); NRBC Flagged by Analyzer 0 % (0-5); Neutrophil % 77.8 % (47-70); Platelet Count 243 K/mm3 (150-450); RBC Distribution Width CV 13.8 % (11.6-14.6); RBC Distribution Width SD 42.3 fl (35.1-43.9); Red Blood Count 4.61 M/mm3 (4.2-5.4); White Blood Count 7.8 K/mm3 (4.4-11.0)
[2024-02-14] MEDS: Ceftriaxone 1 GM/50 ML BAG IV (15:54)
[2024-02-14] MEDS: metroNIDAZOLE 500 MG/100 ML BAG 100 MG IV (15:56)
[2024-02-14] MEDS: Potassium Chloride Oral Tablet 20 MEQ 40 MEQ PO (15:58)
--- NOTE | 2024-02-14 16:01 | ED.RN ---
SALINE LOCK REMOVED BY PATIENT ON ACCIDENT. POST SITE-INTACT AND BAND-AID APPLIED.
--- NOTE | 2024-02-14 19:55 | PCM.HP.STD ---
HPI - General General Date of Admission: 02/14/24 HPI Narrative TRENTON DENTON, is a 53 F who presents to the hospital with back pain and abdominal pain. The back pain and abdominal pain have been going on for several weeks but she felt that she needed to be seen today because she has not been able to get into her doctors office. She described the pain to the ED physician as being in her mid back but it did not radiate anywhere on my evaluation she states that it radiates down both legs and that her legs feel heavy. She is able to move her lower extremities and exam is intact. CT of her abdomen pelvis shows continued left hemicolon thickening consistent with colitis. She was admitted to the hospital at the end of December with colitis and received 3 days of Zosyn and then was discharged home but it does not appear that she was discharged on antibiotics at that time. At that time she was still complaining of back pain and was discharged with Flexeril. I did reach out to the primary care physician's office and they said that they have set her up with palliative care and home health care to help deal with this pain and that she has missed several appointments in the office but that they would be able to get her in early next week if necessary. She has a progressive loss of height on her L3 with no canal stenosis or retropulsion. [facility]LY [facility] Medical History L5 vertebral fracture BiPAP (biphasic positive airway pressure) dependence Coronary artery disease On home oxygen therapy Rheumatoid arthritis Sleep apnea Smoker DVT (deep venous thrombosis) Seizures Amputation toe Psychiatric disorder Ischemic cardiomyopathy Diabetes type 2, uncontrolled Essential hypertension Substance abuse Alcohol abuse Depression Osteoporosis GERD (gastroesophageal reflux disease) Pulmonary embolism Myocardial infarct Pericardial effusion Hypoxemia Acute dyspnea Aftercare following surgery of the circulatory system Hx of fracture of humerus Toe amputee Hyperlipidemia CHF (congestive heart failure) CAD (coronary artery disease), [place] coronary artery Home Medications ?Medication ?Instructions ?Recorded ?Last Taken ?Type aspirin 81 mg capsule 81 mg PO DAILY heart health 08/10/22 02/01/23 History clopidogrel 75 mg tablet 75 mg PO DAILY anti platelet #30 02/03/23 Unknown Rx tabs escitalopram oxalate 10 mg tablet 10 mg PO DAILY mental health #30 02/03/23 Unknown Rx (Lexapro) tabs pantoprazole 40 mg tablet,delayed 40 mg PO DAILY reflux 04/18/23 Unknown History release sacubitril 24 mg-valsartan 26 mg 1 tab PO BID 30 days #60 tabs 05/07/23 Unknown Rx tablet (Entresto) midodrine 2.5 mg tablet 2.5 mg PO BID 11/14/23 Unknown History atorvastatin 80 mg tablet 80 mg PO QHS cholesterol 12/29/23 Unknown History carvedilol 3.125 mg tablet 3.125 mg PO BID blood pressure 12/29/23 Unknown History dapagliflozin propanediol 10 mg 10 mg PO DAILY 12/29/23 Unknown History tablet (Farxiga) furosemide 40 mg tablet 40 mg PO DAILY 12/29/23 Unknown History gabapentin 300 mg capsule 300 mg PO TID 12/29/23 Unknown History insulin glargine 100 unit/mL (3 24 unit subcut QPM 12/29/23 Unknown History mL) subcutaneous pen (Lantus Solostar U-100 Insulin) insulin glargine 100 unit/mL (3 40 unit subcut DAILY 12/29/23 Unknown History mL) subcutaneous pen (Lantus Solostar U-100 Insulin) insulin lispro 100 unit/mL subcut 12/29/23 Unknown History subcutaneous half-unit pen spironolactone 25 mg tablet 12.5 mg PO DAILY 12/29/23 Unknown History cyclobenzaprine 5 mg tablet 5 mg PO TID PRN muscle spasm #30 01/01/24 Unknown Rx tabs ondansetron 4 mg disintegrating 4 mg PO Q8H PRN nausea and 01/01/24 Unknown Rx tablet vomiting #20 tabs carvedilol 12.5 mg tablet 12.5 mg PO BID 01/10/24 Unknown History DIC 2%/RINKU 6%/LIDOC 2% IN 1 - 2 pump subdermal Q6H PRN FOR 02/14/24 Unknown History saltsable FEET cholecalciferol (vitamin D3) 1,250 1,250 mcg PO WE 02/14/24 Unknown History mcg (50,000 unit) tablet Allergy/AdvReac Type Severity Reaction Status Date / Time latex Allergy Hives Verified 01/10/24 15:47 Family History Mother Thyroid disorder Diabetes Hypertension Grandmother Diabetes Uncle Diabetes Aunt Diabetes Other Heart disease Surgical History History of cholecystectomy History of appendectomy History of cholecystectomy Social History household members: spouse and children housing: house Smoking Status: Current every day smoker tobacco type: cigarettes alcohol intake: never substance use type: marijuana what type of physical activity do you participate in: none do you feel safe at home: Yes ROS Constitutional Constitutional: Denies chills, fatigue, fever(s) or malaise Eyes Eyes: Denies blurry vision ENT HEENT: Denies headache(s) or nasal discharge Cardiovascular Cardiovascular: Denies chest pain, dyspnea on exertion or syncope Respiratory/Chest Respiratory/Chest: Denies cough, shortness of breath at rest or shortness of breath with exertion Gastrointestinal Gastrointestinal: Reports abdominal pain; Denies constipation, diarrhea, nausea or vomiting Genitourinary Genitourinary: Denies dysuria Musculoskeletal Musculoskeletal: Reports back pain Neurologic Neurologic: Denies focal weakness, numbness or tremor(s) Psychiatric Psychiatric: Denies anxiety or depression Vital Signs Vital Signs Vital Signs: 02/14/24 12:39 02/14/24 16:05 02/14/24 16:06 Temperature 97.8 F 98.1 F 98.1 F Temperature Source Temporal Oral Pulse Rate 113 H 80 80 Respiratory Rate 18 16 16 Respiratory Effort Blood Pressure 142/88 H 150/89 H 150/89 H Blood Pressure Mean 106 109 109 Blood Pressure Source Blood Pressure Position Blood Pressure Location Pulse Ox 98 97 97 Oxygen Delivery Method Room Air Room Air 02/14/24 16:37 02/14/24 17:06 02/14/24 17:37 Temperature 98.7 F 97.7 F L Temperature Source Oral Oral Pulse Rate 87 72 100 Respiratory Rate 16 18 18 Respiratory Effort Blood Pressure 148/82 H 155/88 H 162/94 H Blood Pressure Mean 104 110 116 Blood Pressure Source Monitor Blood Pressure Position Supine Blood Pressure Location Right Arm Pulse Ox 95 94 96 Oxygen Delivery Method Room Air Room Air Room Air 02/14/24 17:45 Temperature Temperature Source Pulse Rate Respiratory Rate Respiratory Effort Normal Blood Pressure Blood Pressure Mean Blood Pressure Source Blood Pressure Position Blood Pressure Location Pulse Ox Oxygen Delivery Method Room Air Weight Weight: 174 lb 4.8 oz Body Mass Index (BMI) 27.3 Physical Exam Narrative General: Alert, Oriented x3, Cooperative, tearful HEENT: Atraumatic, PERRLA, EOMI, Normocephalic Oral: Moist Mucosa Neck: Supple, No JVD Lungs: Diminished, Normal air movement, No rhonchi, No wheeze, No rales Cardiovascular: Regular rate, Regular Rhythm, Normal S1, Normal S2, No murmurs Abdomen: Soft, TTP LLQ, Non-Distended, No Hepato-splenomegaly Extremities: No edema, Capillary Refill Less than 3 Seconds Skin: No rashes, No breakdown Musculoskeletal: No Tenderness to Palpation of Joints or Extremities, no tenderness to palpation in her back. Left partial foot amputation Neurological: No focal neurological deficits, Motor Exam 5/5 strength throughout, Sensory exam intact to light touch and pain Psych/Mental Status: Flat Results Lab / Micro Data 02/14/24 14:18 02/14/24 13:46 Labs: Laboratory Results - last 24 hr 02/14/24 13:46: WBC Cancelled, Corrected WBC Cancelled, RBC Cancelled, Hgb Cancelled, Hct Cancelled, MCV Cancelled, MCH Cancelled, MCHC Cancelled, RDW Std Deviation Cancelled, RDW Coeff of Spencer Cancelled, Plt Count Cancelled, MPV Cancelled, Immature Gran % (Auto) Cancelled, Neut % (Auto) Cancelled, Lymph % (Auto) Cancelled, [place] % (Auto) Cancelled, Eos % (Auto) Cancelled, Baso % (Auto) Cancelled, Absolute Neuts (auto) Cancelled, Absolute Lymphs (auto) Cancelled, Total Counted Cancelled, Neutrophils % (Manual) Cancelled, Band Neutrophils % Cancelled, Lymphocytes % (Manual) Cancelled, Monocytes % (Manual) Cancelled, Eosinophils % (Manual) Cancelled, Basophils % (Manual) Cancelled, Metamyelocytes % Cancelled, Myelocytes % Cancelled, Promyelocytes % Cancelled, Blast Cells % Cancelled, Plasma Cell % (Manual) Cancelled, Other Cells % Cancelled, Nucleated RBC % Cancelled, Nucleated RBCs/100 WBC Cancelled, Differential Comment Cancelled, Diff Path Review Cancelled, Hypersegmented Neuts Cancelled, Atypical Lymphocytes Cancelled, Reactive Lymphocytes Cancelled, Smudge Cells Cancelled, Toxic Granulation Cancelled, Toxic Vacuolation Cancelled, Dohle Bodies Cancelled, Truman Rods Cancelled, Platelet Estimate Cancelled, Plt Morphology Comment Cancelled, RBC Morphology Cancelled 02/14/24 13:46: RBC Morphology Cancelled, Polychromasia Cancelled, Hypochromasia Cancelled, Basophilic Stippling Cancelled, Anisocytosis Cancelled, Microcytosis Cancelled, Macrocytosis Cancelled, Spherocytes Cancelled, Sickle Cells Cancelled, Target Cells Cancelled, Tear Drop Cells Cancelled, Ovalocytes Cancelled, Stomatocytes Cancelled, Burris-Honaker Bodies Cancelled, [place] Cells Cancelled, Bite Cells Cancelled, Crenated Cell Cancelled, Acanthocytes (Spur) Cancelled, Rouleaux Cancelled, Schistocytes Cancelled, Sodium 133 L, Potassium 3.2 L, Chloride 102, Carbon Dioxide 24.0, Anion Gap 7, BUN 6 L, Creatinine 0.66, Est GFR (MDRD) Af Amer 120, Est GFR (MDRD) Non-Af 99, BUN/Creatinine Ratio 9.0 L, Glucose 257 H, Calcium 8.9 02/14/24 14:18: WBC 7.8, RBC 4.61, Hgb 12.3, Hct 38.9, MCV 84.4, MCH 26.7 L, MCHC 31.6 L, RDW Std Deviation 42.3, RDW Coeff of Spencer 13.8, Plt Count 243, MPV 9.4, Immature Gran % (Auto) 0.400, Neut % (Auto) 77.8 H, Lymph % (Auto) 12.6 L, [place] % (Auto) 6.9, Eos % (Auto) 1.5, Baso % (Auto) 0.8, Absolute Neuts (auto) 6.1, Absolute Lymphs (auto) 0.99, Nucleated RBC % 0 Imaging Radiology Impression Abdomen/Pelvis CT 02/14/24 13:09 IMPRESSION: Stable bilateral adrenal nodules. Residual circumferential wall thickening of the left hemicolon suggestive of residual colitis. There has been improvement as compared to prior study. Progressive loss of height of the superior endplate of the L3 and L4 vertebrae. Electronically Signed: Ryan Tejeda MD at 15:07 EDT , Assessment & Plan Assessment/Plan (1) Closed compression fracture of L3 vertebra: PLAN: Plan 1. Back pain ? She has progression loss of height of her L3, not a new fracture but it has worsened. She has been having chronic back pain and has palliative care set up at home with home health as well ? I called her PCPs office and they would be able to see her early next week ? In discussing the case with her nurses on the floor it does appear that she only expresses her pain when being observed ? Will continue with p.o. oxycodone ? PT/OT 2. Left hemicolitis ? Will treat with Cipro and Flagyl as she appears symptomatic with diarrhea but no leukocytosis 3. Chronic combined systolic and diastolic CHF/essential HTN/HLD/CAD ? Will continue with her home cholesterol medications ? Awaiting verification of medications ? It does appear that some of her medications were last filled in December ? Once confirmed can be restarted ? Will monitor make adjustments as necessary 4. DM2 ? Will obtain an A1c, her A1c was 7 in November ? Will place her on sliding scale insulin ? Await verification of her home insulin ? Will monitor make adjustments as necessary ? Accu-[place] ACHS DVT: Ambulation Charges/Coding Visit Charges Inpatient E&M: 73121 Init Hosp L2
[2024-02-14] MEDS: Ondansetron 8 MG Tablet PO (20:07)
[2024-02-14] MEDS: oxyCODONE 5 MG Tablet PO (20:08)
[2024-02-14] MEDS: Nystatin Powder 15gm Bottle 1 APPLIC TOPICAL (21:58)
[2024-02-14] MEDS: Menthol/Lanolin/Calamine/Znox 113 GM Tube 1 APPLIC TOPICAL (21:58)
[2024-02-14] MEDS: Carvedilol 12.5 MG Tablet PO (21:59)
[2024-02-14] MEDS: SACUBITRIL/VALSARTAN 24/26 MG TABLET 1 EACH PO (21:59)
[2024-02-14] MEDS: Ciprofloxacin 500 MG Tablet PO (22:01)
[2024-02-14] MEDS: Gabapentin 300 MG Capsule PO (22:02)
[2024-02-14] MEDS: Atorvastatin Calcium 80 MG Tablet PO (22:02)
[2024-02-14] MEDS: metroNIDAZOLE 500 MG Tablet PO (22:02)
[2024-02-14] MEDS: Insulin Glargine-YFGN 100 UNIT/ML Pen 24 UNIT SC (22:05)
[2024-02-14] MEDS: Insulin Lispro 100 UNIT/ML INSULN.PEN SC (22:06)
[2024-02-14 22:28] LABS: Bedside Glucose 300 mg/dL (74-106)
[2024-02-15] MEDS: oxyCODONE 5 MG Tablet PO ×4 (00:29→21:09)
[2024-02-15 02:26] VITALS: BP 110/55; PULSE 85; RESP 16; TEMP 36.7; O2SAT 97
[2024-02-15] MEDS: Morphine 2 MG/ML Syringe IV (02:27)
[2024-02-15] MEDS: 0.9% Saline Lock 10 ML Syringe IV ×2 (02:27→12:13)
[2024-02-15 06:05] LABS: Anion Gap 5 (5-15); BUN 7 mg/dL (7-18); BUN/Creat Ratio 11.1 RATIO (10-20); Calcium,Total 8.7 mg/dL (8.5-10.1); Chloride 102 mmol/L (98-107); Creatinine, Serum 0.63 mg/dL (0.55-1.02); EST Glomerular Filtration Rate 105 mL/min (>60); Est Glom Filt Rate - Afr Amer 127 mL/min (>60); Glucose 151 mg/dL (74-106); Potassium 3.1 mmol/L (3.5-5.1); Sodium Level 135 mmol/L (136-145)
[2024-02-15] MEDS: Ondansetron 8 MG Tablet PO ×2 (06:30→21:09)
[2024-02-15] MEDS: Gabapentin 300 MG Capsule PO ×2 (06:30→22:39)
[2024-02-15] MEDS: metroNIDAZOLE 500 MG Tablet PO ×3 (06:30→21:09)
[2024-02-15 06:57] LABS: Bedside Glucose 149 mg/dL (74-106)
--- NOTE | 2024-02-15 07:18 | PN.HOSP_ITS ---
Reason for Visit Reason for Visit: Diagnoses Wedge compression fracture of third lumbar vertebra, initial encounter for closed fracture (02/14/24) Objective Data Objective Data Vital Signs: Vital Signs Temp Pulse Resp BP Pulse Ox O2 Del Method 98.1 F 85 16 110/55 L 97 Room Air 02/15/24 02:02/15/24 02:02/15/24 02:02/15/24 02:02/15/24 02:02/15/24 02:26 Oxygen Delivery Method Room Air Weight: 174 lb 4.8 oz Body Mass Index (BMI) 27.3 Intake & Output: Intake and Output for Last 24 Hours 02/13/24 02/14/24 02/15/24 23:59 23:59 23:59 Intake Total 600 / 600 900 / 900 Output Total 525 / 525 Balance 600 / 600 375 / 375 Lab / Micro Data 02/14/24 14:18 02/15/24 05:36 Labs: Laboratory Results - last 24 hr Sodium 133 L, Potassium 3.2 L, Chloride 102, Carbon Dioxide 24.0, Anion Gap 7, BUN 6 L, Creatinine 0.66, Est GFR (MDRD) Af Amer 120, Est GFR (MDRD) Non-Af 99, BUN/Creatinine Ratio 9.0 L, Glucose 257 H, Calcium 8.9 02/14/24 14:18: WBC 7.8, RBC 4.61, Hgb 12.3, Hct 38.9, MCV 84.4, MCH 26.7 L, M CHC 31.6 L, RDW Std Deviation 42.3, RDW Coeff of Spencer 13.8, Plt Count 243, MPV 9.4, Immature Gran % (Auto) 0.400, Neut % (Auto) 77.8 H, Lymph % (Auto) 12.6 L, [place] % (Auto) 6.9, Eos % (Auto) 1.5, Baso % (Auto) 0.8, Absolute Neuts (auto) 6.1, Absolute Lymphs (auto) 0.99, Nucleated RBC % 0 02/14/24 22:04: POC Glucose 300 H 02/15/24 05:36: Sodium 135 L, Potassium 3.1 L, Chloride 102, Carbon Dioxide 28.0, Anion Gap 5, BUN 7, Creatinine 0.63, Estim Creat Clear Calc 113.10, Est GFR (MDRD) Af Amer 127, Est GFR (MDRD) Non-Af 105, BUN/Creatinine Ratio 11.1, G lucose 151 H, Calcium 8.7 02/15/24 06:32: POC Glucose 149 H Radiography Diagnostic Testing: Radiology Impression Abdomen/Pelvis CT 02/14/24 13:09 IMPRESSION: Stable bilateral adrenal nodules. Residual circumferential wall thickening of the left hemicolon suggestive of residual colitis. There has been improvement as compared to prior study. Progressive loss of height of the superior endplate of the L3 and L4 vertebrae. Electronically Signed: Ryan Tejeda MD at 15:07 EDT , Physical Exam Narrative Left partial foot amputation Seen and examined. Patient is crying with the back pain. Blood pressure was normal in the morning 134/72, dropped to 80/59. Physical exam General: Alert, Oriented x3, Cooperative HEENT: Atraumatic, PERRLA, EOMI, Normocephalic Oral: No Gingival or Mucosal Lesions/ Ulcerations Neck: Supple, No JVD, Negative Carotid Bruits Chest wall/Lungs: Air entry diminished in bilateral lung bases. No crepitation/rhonchi Cardiovascular: Regular rate, Regular Rhythm, Normal S1, Normal S2, No M/G/R Abdomen: Bowel Sounds Present, Soft, Non Tender, Non-Distended : No dysuria. No renal angle tenderness. No suprapubic tenderness. Extremities: No edema, Capillary Refill Less than 3 Seconds Skin: No rashes, No breakdown Spine: Tenderness present around L3-4 region. Paraspinal muscle tenderness with spasm. Musculoskeletal: No Tenderness to Palpation of Joints or Extremities. ROM restricted Neurological: Cranial nerves II-XII grossly intact, DTR 2+/4. No acute focal neurological deficit. Psych/Mental Status: Flat affect Assessment & Plan Assessment/Plan (1) Closed compression fracture of L3 vertebra: PLAN: Plan 1. Back pain ? She has progression loss of height of her L3, not a new fracture but it has worsened. She has been having chronic back pain and has palliative care set up at home with home health as well ? Still very severe pain. Muscle relaxant added. On oxycodone. Patient facial expression does not correlate with the pain she describes. PT and OT 2. Left hemicolitis ? Cipro and Flagyl as she appears symptomatic with diarrhea but no leukocytosis Stool for enteric pathogen panel and C. difficile ordered. 3. 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 Blood pressure is low therefore hold it. 4. Essential HTN/HLD ? continue with her home cholesterol medications 5.. DM2: A1c 9.8%. Glucose 151 in BMP. Glucose 100 5290-year. ?Accu-Chek before meals and at bedtime with Humalog sliding scale coverage and hypoglycemia protocol. DVT: Ambulation Charges/Coding Visit Charges Inpatient E&M: 75541 Subs Hosp L2
[2024-02-15 08:01] LABS: Hemoglobin A1c 9.8 % (3.8-5.6)
[2024-02-15] MEDS: Furosemide 40 MG Tablet PO (11:25)
[2024-02-15] MEDS: Carvedilol 12.5 MG Tablet PO (11:26)
[2024-02-15] MEDS: Ciprofloxacin 500 MG Tablet PO ×2 (11:26→21:09)
[2024-02-15] MEDS: SACUBITRIL/VALSARTAN 24/26 MG TABLET 1 EACH PO (11:26)
[2024-02-15] MEDS: Clopidogrel Bisulfate 75 MG Tablet PO (11:26)
[2024-02-15] MEDS: Spironolactone 25 MG Tablet 12.5 MG PO (11:27)
[2024-02-15] MEDS: Escitalopram Oxalate 10 MG Tablet PO (11:27)
[2024-02-15] MEDS: Empagliflozin 25 MG Tablet PO (11:27)
[2024-02-15] MEDS: Aspirin 81 MG TAB.CHEW PO (11:27)
[2024-02-15] MEDS: Pantoprazole Sodium 40 MG Tablet PO (11:28)
[2024-02-15] MEDS: Insulin Glargine-YFGN 100 UNIT/ML Pen 40 UNIT SC (11:28)
[2024-02-15] MEDS: Insulin Lispro 100 UNIT/ML INSULN.PEN SC ×3 (11:29→21:10)
[2024-02-15] MEDS: tiZANidine HCl 2 MG Tablet 4 MG PO ×2 (11:30→22:40)
[2024-02-15] MEDS: Nystatin Powder 15gm Bottle 1 APPLIC TOPICAL ×2 (11:33→21:08)
[2024-02-15 11:34] VITALS: BP 134/72; PULSE 84; RESP 18; TEMP 36.6; O2SAT 100
[2024-02-15 11:54] LABS: Bedside Glucose 157 mg/dL (74-106)
[2024-02-15] MEDS: Metoclopramide 10 MG/2 ML Vial IV (12:12)
--- NOTE | 2024-02-15 12:13 | CASEMGMT ---
CHAYITO BARKLEY Assessment Face to Face with patient for initial transition planning/care coordination assessment. CHAYITO BARKLEY introduced self and role at [facility], pt voices understanding. Pt is A&Ox4 and is resting in bed and is calm. Care providers, pharmacy, and demographics verified. Admitting dx: Back Pain LACE Strata: 3 PCP: Ama Neff Specialists: [facility] Preferred Pharmacy: [facility] [place] Insurance: [facility] Prescription Benefit: Yes LNOK: Rebecca Dueñas (M) Living Arrangements: Pt lives with her daughter and her daughter's BF in a two story home with a FFSU and one step to enter ADLs/IADLs: Pt states that she requires assistance and that normally her daughter and daughters BF are able to help her. Pt states that she used to be active with [facility] but was revoked. SW aware. Transportation: Pt is able to drive. Pt daughter is her main source of transportation. Denies concerns DME: Home oxygen through [employer]. confirmed current order states 2L @ [place] only via [place]. Pt states that she has a concentrator and one portable tank. Pt states that she does not have a pulse ox but can afford one. Pt also reports that she has a BGM and supplies, Rollator, Raised TS, W/C, FWW, and hospital bed. HHC/SNF: Hx at [facility]. Hx of HHC but cannot recall the name of the agency. Pt states that she has a Hx of OP Tx through [facility] Pt?s goal: Return to PLOF and decrease back pain Plan: TBD. 6-Click is 19. PT/OT evaluations are pending. Pt states that it is too early to tell what she will need at time of DC. CM and SW to follow PT as well as pt progression in the hospital to help determine the best DC plan moving forward. Report given to MS3 CHAYITO BARKLEY. Zulay Gaming RN, CM
--- NOTE | 2024-02-15 15:43 | CASEMGMT ---
Social Work Per RNCM, pt had services through [facility] but they have been revoked. Phone call to [facility] to check on services. Message left and SW was told a help desk representative would call back next week. SW will continue to follow as needed for dc planning. Of note, [facility] Social Workers made referrals for the waiver program on 11/15/23 and . SANDRA Garcia
[2024-02-15 16:07] VITALS: BP 84/59; PULSE 72; RESP 16; TEMP 36.8; O2SAT 94
[2024-02-15] MEDS: Lactated Ringers 1,000 ML 999 ML IV (16:24)
[2024-02-15 16:42] LABS: Bedside Glucose 191 mg/dL (74-106)
[2024-02-15 17:08] VITALS: BP 105/60; PULSE 75; RESP 16; TEMP 36.6; O2SAT 98
[2024-02-15 21:02] VITALS: BP 132/77; PULSE 80; RESP 16; TEMP 36.8; O2SAT 99
[2024-02-15] MEDS: Insulin Glargine-YFGN 100 UNIT/ML Pen 24 UNIT SC (21:08)
[2024-02-15] MEDS: Menthol/Lanolin/Calamine/Znox 113 GM Tube 1 APPLIC TOPICAL (21:09)
[2024-02-15] MEDS: Atorvastatin Calcium 80 MG Tablet PO (21:10)
[2024-02-15 23:22] LABS: Bedside Glucose 153 mg/dL (74-106)
[2024-02-16 06:01] VITALS: BP 121/56; PULSE 74; RESP 16; TEMP 36.9; O2SAT 97
[2024-02-16] MEDS: tiZANidine HCl 2 MG Tablet 4 MG PO ×3 (06:03→21:37)
[2024-02-16] MEDS: Gabapentin 300 MG Capsule PO ×3 (06:04→21:37)
[2024-02-16] MEDS: metroNIDAZOLE 500 MG Tablet PO ×3 (06:04→21:37)
[2024-02-16 06:26] LABS: Bedside Glucose 139 mg/dL (74-106)
[2024-02-16 06:30] LABS: Absolute Lymphocyte Count 1.44 X10^3/uL (0.83-4.51); Absolute Neutrophil Count 5.9 X10^3/uL (2.0-7.7); Basophil# 0.05 X10^3/uL; Basophil% 0.6 % (0-1); Eosinophil# 0.19 X10^3/uL; Eosinophils% 2.3 % (0-5); Hematocrit 36.3 % (37-47); Hemoglobin 11.4 g/dL (12.0-15.0); Lymphocyte # 1.44 X10^3/ul (0.83-4.51); Lymphocyte % 17.5 % (19-41); Mean Corp Hgb Conc 31.4 g/dL (32-36); Mean Corpuscular Hgb 26.9 pg (27.0-32.0); Mean Corpuscular Volume 85.6 fL (81-99); Mean Platelet Vol. 9.4 fl (6.2-12.0); Monocyte# 0.63 X10^3/uL; Monocyte% 7.7 % (0-10); NRBC Flagged by Analyzer 0 % (0-5); Neutrophil # 5.85 X10^3/uL (2.7-7.7); Neutrophil % 71.3 % (47-70); Platelet Count 241 K/mm3 (150-450); RBC Distribution Width CV 14.2 % (11.6-14.6); RBC Distribution Width SD 43.9 fl (35.1-43.9); Red Blood Count 4.24 M/mm3 (4.2-5.4); White Blood Count 8.2 K/mm3 (4.4-11.0)
[2024-02-16 06:54] LABS: Anion Gap 5 (5-15); BUN 13 mg/dL (7-18); BUN/Creat Ratio 17.7 RATIO (10-20); Calcium,Total 8.7 mg/dL (8.5-10.1); Chloride 104 mmol/L (98-107); Creatinine, Serum 0.73 mg/dL (0.55-1.02); EST Glomerular Filtration Rate 88 mL/min (>60); Est Glom Filt Rate - Afr Amer 107 mL/min (>60); Glucose 123 mg/dL (74-106); Potassium 3.2 mmol/L (3.5-5.1); Sodium Level 137 mmol/L (136-145)
[2024-02-16] MEDS: oxyCODONE 5 MG Tablet PO ×2 (09:29→19:46)
[2024-02-16] MEDS: Escitalopram Oxalate 10 MG Tablet PO (09:30)
[2024-02-16] MEDS: Nystatin Powder 15gm Bottle 1 APPLIC TOPICAL ×2 (09:30→21:38)
[2024-02-16] MEDS: Aspirin 81 MG TAB.CHEW PO (09:30)
[2024-02-16] MEDS: Ciprofloxacin 500 MG Tablet PO ×2 (09:30→21:37)
[2024-02-16] MEDS: Pantoprazole Sodium 40 MG Tablet PO (09:30)
[2024-02-16] MEDS: Insulin Glargine-YFGN 100 UNIT/ML Pen 40 UNIT SC (09:31)
[2024-02-16] MEDS: Clopidogrel Bisulfate 75 MG Tablet PO (09:31)
[2024-02-16] MEDS: Empagliflozin 25 MG Tablet PO (09:32)
--- NOTE | 2024-02-16 09:34 | NS ---
Received call from [facility] stating that pt is unable to order more than a diet pop and 1 entree per meal due to current 1400 kcal diet restriction. BMI is 27.3. Estimated nutrition needs~5235-0620 kcal (20 kcal/Kg) and ~60-70 gm pro (.8 gm pro/Kg). Will increase calories to 1600 kcal---adjust diet to 1600 calorie/consistent carbohydrate. Rosalina Valencia, MS, RD, LD
[2024-02-16 09:35] VITALS: BP 123/60; PULSE 74; RESP 16; TEMP 36.8; O2SAT 99
[2024-02-16] MEDS: Spironolactone 25 MG Tablet 12.5 MG PO (11:06)
[2024-02-16] MEDS: Insulin Lispro 100 UNIT/ML INSULN.PEN SC ×2 (11:07→21:37)
[2024-02-16 11:25] LABS: Bedside Glucose 192 mg/dL (74-106)
--- NOTE | 2024-02-16 12:24 | CASEMGMT ---
Social Work SW met w/pt in room in regard to discharge plan. Support offered to pt. Pt explains that she was at [facility] after a hip fracture in September for about a month. She went home, it was not going well and she went back to [facility] for about two months. Pt states she has been home for about a month, explains the back pain continues to get worse. She states that as per the doctor, pt may be getting an injection in her back. Pt would prefer to go home if possible, however she still has not participated in therapy due to the pain. SW did provide to pt a list via [facility] of long-term facilities in network w/pt's insurance, in pt's preferred geographic area, and complete w/quality and resource use data, should it be needed. SW let pt know that SW/CM will follow up w/her on Sunday. Pt states understanding. SW/CM will continue to follow. MARTIN Marc
[2024-02-16] MEDS: SACUBITRIL/VALSARTAN 24/26 MG TABLET 0.5 EACH PO ×2 (13:00→21:39)
[2024-02-16 13:07] VITALS: BP 145/82; PULSE 83; RESP 16; TEMP 36.6; O2SAT 97
--- NOTE | 2024-02-16 13:41 | PCM.PN.HOSP ---
Reason for Visit Reason for Visit: Diagnoses Wedge compression fracture of third lumbar vertebra, initial encounter for closed fracture (02/14/24) Objective Data Objective Data Vital Signs: Vital Signs Temp Pulse Resp BP Pulse Ox O2 Del Method 98 F 83 16 145/82 H 97 Room Air 02/16/24 13:07 02/16/24 13:07 02/16/24 13:07 02/16/24 13:07 02/16/24 13:07 02/16/24 13:07 Oxygen Delivery Method Room Air Weight: 174 lb 4.8 oz Body Mass Index (BMI) 27.3 Intake & Output: Intake and Output for Last 24 Hours 02/14/24 02/15/24 02/16/24 23:59 23:59 23:59 Intake Total 600 / 600 1900 / 1900 400 / 400 Output Total 1075 / 1875 1100 / 1100 Balance 600 / 600 825 / 25 -700 / -700 Lab / Micro Data 02/16/24 05:35 02/16/24 05:35 Labs: Laboratory Results - last 24 hr 02/15/24 16:23: POC Glucose 191 H 02/15/24 21:06: POC Glucose 153 H 02/16/24 05:35: WBC 8.2, RBC 4.24, Hgb 11.4 L, Hct 36.3 L, MCV 85.6, MCH 26.9 L, MCHC 31.4 L, RDW Std Deviation 43.9, RDW Coeff of Spencer 14.2, Plt Count 241, MPV 9.4, Immature Gran % (Auto) 0.600, Neut % (Auto) 71.3 H, Lymph % (Auto) 17.5 L, [place] % (Auto) 7.7, Eos % (Auto) 2.3, Baso % (Auto) 0.6, Absolute Neuts (auto) 5.9, Absolute Lymphs (auto) 1.44, Nucleated RBC % 0, Sodium 137, Potassium 3.2 L, Chloride 104, Carbon Dioxide 28.0, Anion Gap 5, BUN 13, Creatinine 0.73, Estim Creat Clear Calc 97.60, Est GFR (MDRD) Af Amer 107, Est GFR (MDRD) Non-Af 88, BUN/Creatinine Ratio 17.7, Glucose 123 H, Calcium 8.7 02/16/24 06:06: POC Glucose 139 H 02/16/24 11:05: POC Glucose 192 H Physical Exam Narrative Left partial foot amputation Seen and examined. Patient sleeps well and looks comfortable but when asked she complained of 10/10 lower back pain. No emotional component of pain. Hypotension has recovered. BP 145/72. Physical exam General: Alert, Oriented x3, Cooperative HEENT: Atraumatic, PERRLA, EOMI, Normocephalic Oral: No Gingival or Mucosal Lesions/ Ulcerations Neck: Supple, No JVD, Negative Carotid Bruits Chest wall/Lungs: Air entry diminished in bilateral lung bases. No crepitation/rhonchi Cardiovascular: Regular rate, Regular Rhythm, Normal S1, Normal S2, No M/G/R Abdomen: Bowel Sounds Present, Soft, Non Tender, Non-Distended : No dysuria. No renal angle tenderness. No suprapubic tenderness. Extremities: No edema, Capillary Refill Less than 3 Seconds Skin: No rashes, No breakdown Spine: Mild tenderness present around L3-4 region. Paraspinal muscle tenderness. Musculoskeletal: No Tenderness to Palpation of Joints or Extremities. ROM restricted Neurological: Cranial nerves II-XII grossly intact, DTR 2+/4. No acute focal neurological deficit. Psych/Mental Status: Flat affect Assessment & Plan Assessment/Plan (1) Closed compression fracture of L3 vertebra: PLAN: Plan 1. Acute on chronic back pain from loss of height of L3 vertebra ? She has progression loss of height of her L3, not a new fracture but it has worsened. She has been having chronic back pain and has palliative care set up at home with home health as well ? Still very severe pain. Muscle relaxant added. On oxycodone. Patient facial expression does not correlate with the pain she describes. PT and OT 02/15: On my observation and nursing staff report, patient was seen comfortable sleeping when not directly asked but complained of 10/10 when she sees any nursing staff. 2. Left hemicolitis ? Cipro and Flagyl as she appears symptomatic with diarrhea but no leukocytosis Stool for enteric pathogen panel and C. difficile ordered. 3. 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 Blood pressure is low therefore hold it. 02/15 Entresto, spironolactone and carvedilol resumed with lower dose with holding parameter. Continue holding Lasix. 4. Essential HTN/HLD ? continue with her home cholesterol medications 02/15: Patient also had transient hypotension probably due to pain medications and required 1 L of Ringer lactate bolus and blood pressure gradually recovered. It was 105/60 yesterday evening but normotensive and 145/80 2 in the afternoon. Antihypertensive medications resumed at lower dose with holding parameters 5.. DM2: A1c 9.8%. Glucose 151 in BMP. 02/15: Glucoses between 140?190 ?Accu-Chek before meals and at bedtime with Humalog sliding scale coverage and hypoglycemia protocol. DVT: Ambulation Charges/Coding Visit Charges Inpatient E&M: 02873 Subs Hosp L2
[2024-02-16 17:04] LABS: Bedside Glucose 114 mg/dL (74-106)
[2024-02-16 19:40] VITALS: BP 123/66; PULSE 81; RESP 16; TEMP 36.6; O2SAT 96
[2024-02-16] MEDS: Ondansetron 8 MG Tablet PO (19:47)
[2024-02-16] MEDS: Insulin Glargine-YFGN 100 UNIT/ML Pen 26 UNIT SC (21:36)
[2024-02-16] MEDS: Carvedilol 6.25 MG Tablet PO (21:37)
[2024-02-16] MEDS: Senna/Docusate Sodium 1 Tablet 2 TABLET PO (21:37)
[2024-02-16] MEDS: Atorvastatin Calcium 80 MG Tablet PO (21:38)
[2024-02-16 22:03] LABS: Bedside Glucose 174 mg/dL (74-106)
[2024-02-17 02:43] VITALS: BP 106/51; PULSE 78; RESP 18; TEMP 36.6; O2SAT 96
[2024-02-17] MEDS: oxyCODONE 5 MG Tablet PO ×3 (02:50→13:58)
[2024-02-17] MEDS: Ondansetron 8 MG Tablet PO ×2 (03:06→13:58)
[2024-02-17] MEDS: tiZANidine HCl 2 MG Tablet 4 MG PO ×2 (06:13→13:57)
[2024-02-17] MEDS: metroNIDAZOLE 500 MG Tablet PO ×2 (06:13→13:57)
[2024-02-17] MEDS: Gabapentin 300 MG Capsule PO (06:13)
[2024-02-17 06:23] LABS: Absolute Lymphocyte Count 1.42 X10^3/uL (0.83-4.51); Absolute Neutrophil Count 7.4 X10^3/uL (2.0-7.7); Basophil# 0.07 X10^3/uL; Basophil% 0.7 % (0-1); Eosinophil# 0.16 X10^3/uL; Eosinophils% 1.7 % (0-5); Hematocrit 36.9 % (37-47); Hemoglobin 11.6 g/dL (12.0-15.0); Lymphocyte # 1.42 X10^3/ul (0.83-4.51); Lymphocyte % 14.7 % (19-41); Mean Corp Hgb Conc 31.4 g/dL (32-36); Mean Corpuscular Hgb 27.1 pg (27.0-32.0); Mean Corpuscular Volume 86.2 fL (81-99); Mean Platelet Vol. 9.7 fl (6.2-12.0); Monocyte# 0.63 X10^3/uL; Monocyte% 6.5 % (0-10); NRBC Flagged by Analyzer 0 % (0-5); Neutrophil # 7.37 X10^3/uL (2.7-7.7); Platelet Count 254 K/mm3 (150-450); RBC Distribution Width CV 14.1 % (11.6-14.6); RBC Distribution Width SD 43.9 fl (35.1-43.9); Red Blood Count 4.28 M/mm3 (4.2-5.4); White Blood Count 9.7 K/mm3 (4.4-11.0)
[2024-02-17 06:56] LABS: Anion Gap 5 (5-15); BUN 9 mg/dL (7-18); BUN/Creat Ratio 14.4 RATIO (10-20); Calcium,Total 8.6 mg/dL (8.5-10.1); Chloride 103 mmol/L (98-107); Creatinine, Serum 0.62 mg/dL (0.55-1.02); EST Glomerular Filtration Rate 107 mL/min (>60); Est Glom Filt Rate - Afr Amer 129 mL/min (>60); Estimated Creatinine Clearance 114.92 ml/min; Glucose 88 mg/dL (74-106); Potassium 3.2 mmol/L (3.5-5.1); Sodium Level 136 mmol/L (136-145)
[2024-02-17 07:01] LABS: Bedside Glucose 98 mg/dL (74-106)
[2024-02-17 08:25] VITALS: BP 122/66; PULSE 76; RESP 18; TEMP 36.5; O2SAT 95
[2024-02-17] MEDS: Carvedilol 6.25 MG Tablet PO (08:42)
[2024-02-17] MEDS: Spironolactone 25 MG Tablet 12.5 MG PO (08:43)
[2024-02-17] MEDS: Menthol/Lanolin/Calamine/Znox 113 GM Tube 1 APPLIC TOPICAL (08:44)
[2024-02-17] MEDS: Aspirin 81 MG TAB.CHEW PO (08:44)
[2024-02-17] MEDS: SACUBITRIL/VALSARTAN 24/26 MG TABLET 0.5 EACH PO (08:45)
[2024-02-17] MEDS: Ciprofloxacin 500 MG Tablet PO (08:45)
[2024-02-17] MEDS: Insulin Glargine-YFGN 100 UNIT/ML Pen 40 UNIT SC (08:46)
[2024-02-17] MEDS: Escitalopram Oxalate 10 MG Tablet PO (08:47)
[2024-02-17] MEDS: Nystatin Powder 15gm Bottle 1 APPLIC TOPICAL (08:47)
[2024-02-17] MEDS: Empagliflozin 25 MG Tablet PO (08:47)
[2024-02-17] MEDS: Pantoprazole Sodium 40 MG Tablet PO (08:48)
[2024-02-17] MEDS: Clopidogrel Bisulfate 75 MG Tablet PO (08:49)
[2024-02-17] MEDS: Senna/Docusate Sodium 1 Tablet 2 TABLET PO (09:00)
[2024-02-17 09:49] VITALS: BP 115/67; PULSE 72; RESP 18; O2SAT 96
--- NOTE | 2024-02-17 10:05 | PCM.DC ---
Discharge Instructions Diet Discharge Diet: No restrictions Activity Discharge Activity: Return to Normal Activity Weight Bearing Status: Weight bearing as tolerated Dressing / Incision Call your doctor if you observe: Fever of 101 or Higher, Coldness, Increased Pain, Numbness or Tingling, Change in Color, Inability to urinate, Inability to have a bowel movement, Shortness of breath, Dizziness, Fainting spells, Swelling in the ankles, Chest pain, Prolonged hiccupping, Increased palpitations (irregular heartbeat) and Calf discomfort Follow Up Care When: IN 2 WEEKS Test Results: Test results from this visit will be discussed in further detail at your follow-up appointment, if applicable. Discharge Plan Admission Admit Date/Time: 02/14/24 16:39 Primary Reason for Your Visit: Acute on chronic back pain Attending Provider: Jeremy Alexander [facility] Providers: Brandon Adames Discharge Orders/Prescriptions Prescriptions: New tizanidine 2 mg Tablet 4 mg PO TID 10 Days Qty: 30 0RF sennosides-docusate sodium [Stimulant Laxative Plus] 8.6-50 mg Tablet 2 tab PO BID Qty: 0 0RF tramadol 50 mg tablet 50 mg PO Q8H PRN (Reason: pain (scale score 7-10)) Qty: 10 0RF Continued pantoprazole 40 mg tablet,delayed release (DR/EC) 40 mg PO DAILY aspirin 81 mg Capsule 81 mg PO DAILY clopidogrel 75 mg Tablet 75 mg PO DAILY Qty: 30 0RF Patient Comments: patient stated pretty sure I still take that escitalopram oxalate [Lexapro] 10 mg tablet 10 mg PO DAILY Qty: 30 0RF midodrine 2.5 mg tablet 2.5 mg PO BID carvedilol 3.125 mg tablet 3.125 mg PO BID dapagliflozin propanediol [Farxiga] 10 mg tablet 10 mg PO DAILY insulin glargine [Lantus Solostar U-100 Insulin] 100 unit/mL (3 mL) insulin pen 40 unit subcut DAILY insulin glargine [Lantus Solostar U-100 Insulin] 100 unit/mL (3 mL) insulin pen 24 unit subcut QPM insulin lispro 100 unit/mL insulin pen, half-unit 1 sliding scale dose subcut atorvastatin 80 mg tablet 80 mg PO QHS gabapentin 300 mg Capsule 300 mg PO TID ondansetron 4 mg tablet,disintegrating 4 mg PO Q8H PRN (Reason: nausea and vomiting) Qty: 20 0RF cholecalciferol (vitamin D3) 1,250 mcg (50,000 unit) tablet 1,250 mcg PO WE DIC 2%/RINKU 6%/LIDOC 2% IN saltsable cream 1 - 2 pump subdermal Q6H PRN (Reason: FOR FEET) Changed furosemide 40 mg Tablet 20 mg PO DAILY 30 Days Qty: 0 0RF spironolactone 25 mg tablet 25 mg PO DAILY 30 Days Qty: 0 0RF Held Entresto 24-26 mg Tablet 1 tab PO BID 30 Days Qty: 60 0RF Hold Instructions: Hold for SBP less than 130 mmHg carvedilol 12.5 mg tablet 12.5 mg PO BID Hold Instructions: Hold for heart less than 50 or systolic blood pressure less than 130 mmHg. Discontinued cyclobenzaprine 5 mg tablet 5 mg PO TID PRN (Reason: muscle spasm) Qty: 30 0RF [facility] - Disposition Disposition (needs filled in before D/C Order can be placed): Home, Self Care
--- NOTE | 2024-02-17 11:04 | DS.PCM_ITS ---
Providers Date of Admission: 02/14/24 Date of Discharge: 02/17/24 Primary Care Physician: [facility] Reason For Visit: BACK Diagnosis Discharge Diagnosis (1) Closed compression fracture of L3 vertebra: Status: Acute Code(s): S32.030A - Wedge compression fracture of third lumbar vertebra, initial encounter for closed fracture Plan 53-year-old female admitted with acute on chronic back pain for 1 and half months. It is localized with no radicular or radiation. Patient also had diarrhea and left lower quadrant pain with no fever. She she said she still has some diarrhea from previous hospitalization of December 31 when she was treated with 3 days of IV Zosyn for left-sided colitis. 1. Acute on chronic back pain from loss of height of L3 vertebra ? She has progression loss of height of her L3, not a new fracture but it has worsened. She has been having chronic back pain and has palliative care set up at home with home health as well ? Still very severe pain. Muscle relaxant added. On oxycodone. Patient facial expression does not correlate with the pain she describes. PT and OT 02/15: On my observation and nursing staff report, patient was seen comfortable sleeping when not directly asked but complained of 10/10 when she sees any nursing staff. 02/16: Patient laying on the bed comfortably sleeping. When she wakes up she complained of pain and wants pain medication every 4 hours. Patient is discharged on tramadol, total 10 tablets and tizanidine 30 tablets. Follow with pain management Dr. Brandon Bean. 2. Left hemicolitis ? Cipro and Flagyl as she appears symptomatic with diarrhea but no leukocytosis Stool for enteric pathogen panel and C. difficile 3. 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 Blood pressure is low therefore hold it. 02/15 Entresto, spironolactone and carvedilol resumed with lower dose with holding parameter. Continue holding Lasix. 02/16: Last 2D echo from May 2023 shows EF 15% with severe segmental systolic dysfunction, stage III diastolic dysfunction. Her blood pressure was low as mentioned below. Coreg 12.5 mg twice daily discontinued. On carvedilol 3.125 mg twice daily. Hold Entresto as her blood pressure gets low in the 80s. Furosemide dose decreased to 20 mg daily. Mild hypokalemia therefore spironolactone dose increased to 25 mg daily. 4. Essential HTN/HLD ? continue with her home cholesterol medications 02/15: Patient also had transient hypotension probably due to pain medications and required 1 L of Ringer lactate bolus and blood pressure gradually recovered. It was 105/60 yesterday evening but normotensive and 145/82 in the afternoon. Antihypertensive medications resumed at lower dose with holding parameters 5.. DM2: A1c 9.8%. Glucose 151 in BMP. 02/15: Glucoses between 140?190 ?Accu-Chek before meals and at bedtime with Humalog sliding scale coverage and hypoglycemia protocol. DVT: Ambulation Medications at Discharge Home Medications aspirin 81 mg capsule 81 mg PO DAILY heart health 08/10/22 clopidogrel 75 mg tablet 75 mg PO DAILY anti platelet #30 tabs 02/03/23 escitalopram oxalate 10 mg tablet (Lexapro) 10 mg PO DAILY mental health #30 tabs 02/03/23 pantoprazole 40 mg tablet,delayed release 40 mg PO DAILY reflux 04/18/23 sacubitril 24 mg-valsartan 26 mg tablet (Entresto) 1 tab PO BID 30 days #60 tabs 05/07/23 midodrine 2.5 mg tablet 2.5 mg PO BID 11/14/23 atorvastatin 80 mg tablet 80 mg PO QHS cholesterol 12/29/23 carvedilol 3.125 mg tablet 3.125 mg PO BID blood pressure 12/29/23 dapagliflozin propanediol 10 mg tablet (Farxiga) 10 mg PO DAILY 12/29/23 gabapentin 300 mg capsule 300 mg PO TID 12/29/23 insulin glargine 100 unit/mL (3 mL) subcutaneous pen (Lantus Solostar U-100 Insulin) 24 unit subcut QPM 12/29/23 insulin glargine 100 unit/mL (3 mL) subcutaneous pen (Lantus Solostar U-100 Insulin) 40 unit subcut DAILY 12/29/23 insulin lispro 100 unit/mL subcutaneous half-unit pen 1 sliding scale dose subcut 12/29/23 ondansetron 4 mg disintegrating tablet 4 mg PO Q8H PRN nausea and vomiting #20 tabs 01/01/24 carvedilol 12.5 mg tablet 12.5 mg PO BID 01/10/24 DIC 2%/RINKU 6%/LIDOC 2% IN saltsable 1 - 2 pump subdermal Q6H PRN FOR FEET 02/14/24 cholecalciferol (vitamin D3) 1,250 mcg (50,000 unit) tablet 1,250 mcg PO WE 02/14/24 ciprofloxacin HCl 500 mg tablet 500 mg PO BID 4 days #8 tabs 02/17/24 furosemide 40 mg tablet 20 mg (1/2 x 40 mg) PO DAILY 30 days #0 tabs 02/17/24 metronidazole 500 mg tablet 500 mg PO Q8H 4 days #12 tabs 02/17/24 sennosides 8.6 mg-docusate sodium 50 mg tablet (Stimulant Laxative Plus) 2 tab PO BID #0 tabs 02/17/24 spironolactone 25 mg tablet 25 mg PO DAILY 30 days #0 tabs 02/17/24 tizanidine 2 mg tablet 4 mg (2 x 2 mg) PO TID 10 days #30 tabs 02/17/24 tramadol 50 mg tablet 50 mg PO Q8H PRN pain (scale score 7-10) #10 tabs 02/17/24 Weight / BMI Weight Weight: 174 lb 4.8 oz Body Mass Index (BMI) 27.3 ABG / Lab / Microbiology Data 02/17/24 05:03 02/17/24 05:03 Laboratory: Laboratory Results - last 24 hr 02/16/24 11:05: POC Glucose 192 H 02/16/24 16:45: POC Glucose 114 H 02/16/24 21:35: POC Glucose 174 H 02/17/24 05:03: WBC 9.7, RBC 4.28, Hgb 11.6 L, Hct 36.9 L, MCV 86.2, MCH 27.1, M CHC 31.4 L, RDW Std Deviation 43.9, RDW Coeff of Spencer 14.1, Plt Count 254, MPV 9.7, Immature Gran % (Auto) 0.400, Neut % (Auto) 76.0 H, Lymph % (Auto) 14.7 L, Josephine % (Auto) 6.5, Eos % (Auto) 1.7, Baso % (Auto) 0.7, Absolute Neuts (auto) 7.4, Absolute Lymphs (auto) 1.42, Nucleated RBC % 0, Sodium 136, Potassium 3.2 L , Chloride 103, Carbon Dioxide 28.0, Anion Gap 5, BUN 9, Creatinine 0.62, Estim Creat Clear Calc 114.92, Est GFR (MDRD) Af Amer 129, Est GFR (MDRD) Non-Af 107, BUN/Creatinine Ratio 14.4, Glucose 88, Calcium 8.6 02/17/24 06:17: POC Glucose 98 D/C Instructions Discharge Diet: No restrictions Weight Bearing Status: Weight bearing as tolerated Call your doctor if you observe: Fever of 101 or Higher, Coldness, Increased Pain, Numbness or Tingling, Change in Color, Inability to urinate, Inability to have a bowel movement, Shortness of breath, Dizziness, Fainting spells, Swelling in the ankles, Chest pain, Prolonged hiccupping, Increased palpitations (irregular heartbeat) and Calf discomfort When: IN 2 WEEKS Meaningful Use Info Ischemic Stroke Statin Dosing Therapy Reference: STATIN DOSE THERAPY REFERENCE: * Patients > 75 years receive moderate or high dose statin therapy. * Patients 75 years or YOUNGER should receive HIGH intensity statin dose unless contraindicated. You will be required to document reason for non-treatment if statin daily dose does not meet guidelines. HIGH DOSE STATIN THERAPY DAILY Atorvastatin > than or = to 40 mg Rosuvastatin > than or = to 20 mg Amlodipine + Atorvastatin > than or = to 2.5/40 mg Ezetimibe + Simvastatin 10/80 mg Simvastatin 80mg Discharge Plan Admission Admit Date/Time: 02/14/24 16:39 Primary Reason for Your Visit: Acute on chronic back pain Attending Provider: Jeremy Alexander Primary Care Provider: [facility] Providers: Brandon Adames Instructions Additional Instructions / Restrictions: [id number] probiotic, lactobacillus plus acidophilus, 1 tablet 2 times daily for 7 days. Discharge Orders/Prescriptions Prescriptions: New tizanidine 2 mg Tablet 4 mg PO TID 10 Days Qty: 30 0RF sennosides-docusate sodium [Stimulant Laxative Plus] 8.6-50 mg Tablet 2 tab PO BID Qty: 0 0RF tramadol 50 mg tablet 50 mg PO Q8H PRN (Reason: pain (scale score 7-10)) Qty: 10 0RF ciprofloxacin HCl 500 mg tablet 500 mg PO BID 4 Days Qty: 8 0RF metronidazole 500 mg tablet 500 mg PO Q8H 4 Days Qty: 12 0RF Continued pantoprazole 40 mg tablet,delayed release (DR/EC) 40 mg PO DAILY aspirin 81 mg Capsule 81 mg PO DAILY clopidogrel 75 mg Tablet 75 mg PO DAILY Qty: 30 0RF Patient Comments: patient stated pretty sure I still take that escitalopram oxalate [Lexapro] 10 mg tablet 10 mg PO DAILY Qty: 30 0RF midodrine 2.5 mg tablet 2.5 mg PO BID carvedilol 3.125 mg tablet 3.125 mg PO BID dapagliflozin propanediol [Farxiga] 10 mg tablet 10 mg PO DAILY insulin glargine [Lantus Solostar U-100 Insulin] 100 unit/mL (3 mL) insulin pen 40 unit subcut DAILY insulin glargine [Lantus Solostar U-100 Insulin] 100 unit/mL (3 mL) insulin pen 24 unit subcut QPM insulin lispro 100 unit/mL insulin pen, half-unit 1 sliding scale dose subcut atorvastatin 80 mg tablet 80 mg PO QHS gabapentin 300 mg Capsule 300 mg PO TID ondansetron 4 mg tablet,disintegrating 4 mg PO Q8H PRN (Reason: nausea and vomiting) Qty: 20 0RF cholecalciferol (vitamin D3) 1,250 mcg (50,000 unit) tablet 1,250 mcg PO WE DIC 2%/RINKU 6%/LIDOC 2% IN saltsable cream 1 - 2 pump subdermal Q6H PRN (Reason: FOR FEET) Changed furosemide 40 mg Tablet 20 mg PO DAILY 30 Days Qty: 0 0RF spironolactone 25 mg tablet 25 mg PO DAILY 30 Days Qty: 0 0RF Held Entresto 24-26 mg Tablet 1 tab PO BID 30 Days Qty: 60 0RF Hold Instructions: Hold for SBP less than 130 mmHg carvedilol 12.5 mg tablet 12.5 mg PO BID Hold Instructions: Hold for heart less than 50 or systolic blood pressure less than 130 mmHg. Discontinued cyclobenzaprine 5 mg tablet 5 mg PO TID PRN (Reason: muscle spasm) Qty: 30 0RF Referrals / Follow Up: Brandon Bean MD [Med Staff - Active Staff] - Within 1 Week (Progressive loss of L3 and L4 vertebral height. Acute on chronic back pain) [facility] - Within 1 Week Disposition Disposition (needs filled in before D/C Order can be placed): Home, Self Care
[2024-02-17 11:45] LABS: Bedside Glucose 114 mg/dL (74-106)
--- NOTE | 2024-02-17 11:46 | PCM.PN.HOSP ---
Reason for Visit Reason for Visit: Diagnoses Wedge compression fracture of third lumbar vertebra, initial encounter for closed fracture (02/14/24) Objective Data Objective Data Vital Signs: Vital Signs Temp Pulse Resp BP Pulse Ox O2 Del Method 97.7 F L 72 18 115/67 96 Room Air 02/17/24 08:25 02/17/24 09:49 02/17/24 09:49 02/17/24 09:49 02/17/24 09:49 02/17/24 09:49 Oxygen Delivery Method Room Air Weight: 174 lb 4.8 oz Body Mass Index (BMI) 27.3 Intake & Output: Intake and Output for Last 24 Hours 02/15/24 02/16/24 02/17/24 23:59 23:59 23:59 Intake Total 1900 / 1900 400 / 400 1500 / 1500 Output Total 1075 / 1875 1100 / 1100 900 / 900 Balance 825 / 25 -700 / -700 600 / 600 Lab / Micro Data 02/17/24 05:03 02/17/24 05:03 Labs: Laboratory Results - last 24 hr 02/16/24 16:45: POC Glucose 114 H 02/16/24 21:35: POC Glucose 174 H 02/17/24 05:03: WBC 9.7, RBC 4.28, Hgb 11.6 L, Hct 36.9 L, MCV 86.2, MCH 27.1, MCHC 31.4 L, RDW Std Deviation 43.9, RDW Coeff of Spencre 14.1, Plt Count 254, MPV 9.7, Immature Gran % (Auto) 0.400, Neut % (Auto) 76.0 H, Lymph % (Auto) 14.7 L, [place] % (Auto) 6.5, Eos % (Auto) 1.7, Baso % (Auto) 0.7, Absolute Neuts (auto) 7.4, Absolute Lymphs (auto) 1.42, Nucleated RBC % 0, Sodium 136, Potassium 3.2 L, Chloride 103, Carbon Dioxide 28.0, Anion Gap 5, BUN 9, Creatinine 0.62, Estim Creat Clear Calc 114.92, Est GFR (MDRD) Af Amer 129, Est GFR (MDRD) Non-Af 107, BUN/Creatinine Ratio 14.4, Glucose 88, Calcium 8.6 02/17/24 06:17: POC Glucose 98 02/17/24 11:28: POC Glucose 114 H Physical Exam Narrative Seen and examined. Patient sleeps well and looks comfortable but when asked she complained of 10/10 lower back pain. No emotional component of pain. Initially thought to discharge but there is no one to take care of herself and patient cannot take care of herself. Physical exam General: Alert, Oriented x3, Cooperative HEENT: Atraumatic, PERRLA, EOMI, Normocephalic Oral: No Gingival or Mucosal Lesions/ Ulcerations Neck: Supple, No JVD, Negative Carotid Bruits Chest wall/Lungs: Air entry diminished in bilateral lung bases. No crepitation/rhonchi Cardiovascular: Regular rate, Regular Rhythm, Normal S1, Normal S2, No M/G/R Abdomen: Bowel Sounds Present, Soft, Non Tender, Non-Distended : No dysuria. No renal angle tenderness. No suprapubic tenderness. Extremities: No edema, Capillary Refill Less than 3 Seconds Skin: No rashes, No breakdown Spine: Mild tenderness present around L3-4 region. Paraspinal muscle tenderness. Musculoskeletal:Left partial foot amputation. No Tenderness to Palpation of Joints or Extremities. ROM restricted Neurological: Cranial nerves II-XII grossly intact, DTR 2+/4. No acute focal neurological deficit. Psych/Mental Status: Flat affect Assessment & Plan Assessment/Plan (1) Closed compression fracture of L3 vertebra: PLAN: Plan 53-year-old female admitted with acute on chronic back pain for 1 and half months. It is localized with no radicular or radiation. Patient also had diarrhea and left lower quadrant pain with no fever. She she said she still has some diarrhea from previous hospitalization of December 31 when she was treated with 3 days of IV Zosyn for left-sided colitis. 1. Acute on chronic back pain from loss of height of L3 vertebra ? She has progression loss of height of her L3, not a new fracture but it has worsened. She has been having chronic back pain and has palliative care set up at home with home health as well ? Still very severe pain. Muscle relaxant added. On oxycodone. Patient facial expression does not correlate with the pain she describes. PT and OT 02/15: On my observation and nursing staff report, patient was seen comfortable sleeping when not directly asked but complained of 10/10 when she sees any nursing staff. 02/16: Patient laying on the bed comfortably sleeping. When she wakes up she complained of pain and wants pain medication every 4 hours. Initially thought to discharge her on tramadol and tizanidine. Prescription was sent. Patient is stated there is no one at home to take care of herself. The charge nurse called the patient's daughter that she does not want to take care of her mother. Patient can see pain management Dr. Brandon Bean as an outpatient. 2. Left hemicolitis ? Cipro and Flagyl as she appears symptomatic with diarrhea but no leukocytosis 02/16: Patient did not had a stool for enteric pathogen panel and C. difficile. Continue IV Cipro and Flagyl for total of 7 days. 3. 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 Blood pressure is low therefore hold it. 02/15 Entresto, spironolactone and carvedilol resumed with lower dose with holding parameter. Continue holding Lasix. 02/16: Last 2D echo from May 2023 shows EF 15% with severe segmental systolic dysfunction, stage III diastolic dysfunction. Her blood pressure was low as mentioned below. Coreg 12.5 mg twice daily discontinued. On carvedilol 3.125 mg twice daily. Hold Entresto as her blood pressure gets low in the 80s. Furosemide dose decreased to 20 mg daily. Mild hypokalemia therefore spironolactone dose increased to 25 mg daily. 4. Essential HTN/HLD ? continue with her home cholesterol medications 02/15: Patient also had transient hypotension probably due to pain medications and required 1 L of Ringer lactate bolus and blood pressure gradually recovered. It was 105/60 yesterday evening but normotensive and 145/82 in the afternoon. Antihypertensive medications resumed at lower dose with holding parameters 5.. DM2: A1c 9.8%. Glucose 151 in BMP. 02/15: Glucoses between 140?190 ?Accu-Chek before meals and at bedtime with Humalog sliding scale coverage and hypoglycemia protocol. DVT: Ambulation Charges/Coding Visit Charges Inpatient E&M: 69960 Subs Hosp L2
--- NOTE | 2024-02-17 12:08 | NURSING ---
Patient in bed, tearful and stating that she cannot care for herself at home and that her daughter isn't able to provide personal hygiene care for her as her daughter will get sick and vomit. Patient states she does not feel comfortable going home and would like to try to go to an [facility] short term for therapy. Dr. Alexander aware. Patient reminded that she must work with PT/OT today so they can complete their note and recommendations. Pt continues crying and asking for pain and nausea meds.
[2024-02-17 14:00] VITALS: BP 115/61; PULSE 82; RESP 18; TEMP 36.3; O2SAT 98
[2024-02-17 16:21] LABS: Bedside Glucose 113 mg/dL (74-106)
[2024-02-17 22:00] VITALS: BP 145/87; PULSE 81; RESP 16; TEMP 36.1; O2SAT 97
[2024-02-17 23:04] LABS: Bedside Glucose 111 mg/dL (74-106)
[2024-02-18] MEDS: SACUBITRIL/VALSARTAN 24/26 MG TABLET 0.5 EACH PO ×2 (00:07→08:59)
[2024-02-18] MEDS: Ciprofloxacin 500 MG Tablet PO ×3 (00:07→22:01)
[2024-02-18] MEDS: metroNIDAZOLE 500 MG Tablet PO ×4 (00:08→22:01)
[2024-02-18] MEDS: Nystatin Powder 15gm Bottle 1 APPLIC TOPICAL ×3 (00:08→22:02)
[2024-02-18] MEDS: Senna/Docusate Sodium 1 Tablet 2 TABLET PO ×3 (00:09→22:01)
[2024-02-18] MEDS: Atorvastatin Calcium 80 MG Tablet PO ×2 (00:11→22:01)
[2024-02-18 01:25] VITALS: BP 147/83; PULSE 87; RESP 16; TEMP 35.9; O2SAT 94
[2024-02-18] MEDS: tiZANidine HCl 2 MG Tablet 4 MG PO ×2 (03:19→13:57)
[2024-02-18] MEDS: oxyCODONE 5 MG Tablet PO ×3 (03:19→18:17)
[2024-02-18 06:39] VITALS: BP 135/81; PULSE 79; RESP 16; TEMP 36.2; O2SAT 98
[2024-02-18 06:47] LABS: Bedside Glucose 136 mg/dL (74-106)
[2024-02-18 08:57] VITALS: BP 129/85; PULSE 85; RESP 18; TEMP 36.3; O2SAT 99
[2024-02-18] MEDS: Empagliflozin 25 MG Tablet PO (08:59)
[2024-02-18] MEDS: Spironolactone 25 MG Tablet PO (08:59)
[2024-02-18] MEDS: Aspirin 81 MG TAB.CHEW PO (08:59)
[2024-02-18] MEDS: Escitalopram Oxalate 10 MG Tablet PO (09:00)
[2024-02-18] MEDS: Menthol/Lanolin/Calamine/Znox 113 GM Tube 1 APPLIC TOPICAL (09:00)
[2024-02-18] MEDS: Clopidogrel Bisulfate 75 MG Tablet PO (09:00)
[2024-02-18] MEDS: Pantoprazole Sodium 40 MG Tablet PO (09:00)
[2024-02-18] MEDS: Insulin Glargine-YFGN 100 UNIT/ML Pen 40 UNIT SC (09:01)
[2024-02-18] MEDS: Ondansetron 8 MG Tablet PO (09:06)
[2024-02-18] MEDS: Carvedilol 3.125 MG TABLET PO ×2 (09:06→16:14)
--- NOTE | 2024-02-18 10:06 | CASEMGMT ---
Addendum entered by Cristiana Jacobson 02/18/24 12:17: [facility] declined SANDRA Gomez Original Note: Social work Referral sent to [facility] SANDRA Gomez
[2024-02-18 11:59] LABS: Bedside Glucose 102 mg/dL (74-106)
--- NOTE | 2024-02-18 13:18 | CASEMGMT ---
Social work Referral sent to [facility] Harding, Kit Quinn, and Kit Camarena. SANDRA Gomez
--- NOTE | 2024-02-18 13:29 | CASEMGMT ---
Addendum entered by Arelis Ngo 02/18/24 14:43: [facility] accepted. Arelis Ngo DC Planning Asst. Original Note: Discharge Planning Referral sent to Lit[facility] and [facility]. Arelis Ngo DC Planning Asst.
[2024-02-18] MEDS: Gabapentin 300 MG Capsule PO (13:57)
[2024-02-18 14:00] VITALS: BP 155/78; PULSE 94; RESP 18; TEMP 36.1; O2SAT 98
--- NOTE | 2024-02-18 14:11 | CASEMGMT ---
Social Work- SW met with pt to advise of [facility] declination d/t insurance provider/coverage (Jana). Pt was agreeable to a blanket referral being sent to a local SNF. SW will continue to update pt. KIKE called pt mom to update. SANDRA Duncan
--- NOTE | 2024-02-18 15:22 | PCM.PN.HOSP ---
Reason for Visit Reason for Visit: Diagnoses Wedge compression fracture of third lumbar vertebra, initial encounter for closed fracture (02/14/24) Objective Data Objective Data Vital Signs: Vital Signs Temp Pulse Resp BP Pulse Ox O2 Del Method 97 F L 94 18 155/78 H 98 Room Air 02/18/24 14:00 02/18/24 14:00 02/18/24 14:00 02/18/24 14:00 02/18/24 14:00 02/18/24 14:00 Oxygen Delivery Method Room Air Weight: 174 lb 4.8 oz Body Mass Index (BMI) 27.3 Intake & Output: Intake and Output for Last 24 Hours 02/16/24 02/17/24 02/18/24 23:59 23:59 23:59 Intake Total 400 / 400 2220 / 2220 240 / 240 Output Total 1100 / 1100 1200 / 1200 Balance -700 / -700 1020 / 1020 240 / 240 Lab / Micro Data 02/17/24 05:03 02/17/24 05:03 Labs: Laboratory Results - last 24 hr 02/17/24 15:58: POC Glucose 113 H 02/17/24 22:46: POC Glucose 111 H 02/18/24 06:30: POC Glucose 136 H 02/18/24 11:39: POC Glucose 102 Physical Exam Narrative Seen and examined. No acute change. Patient is sleeping and when asked when she walks Oxycet she is having pain in the back. Earlier, the patient was tried to discharged but her daughter could not take care of her and the patient cannot take care of herself. Therefore discharge canceled Physical exam General: Alert, Oriented x3, Cooperative HEENT: Atraumatic, PERRLA, EOMI, Normocephalic Oral: No Gingival or Mucosal Lesions/ Ulcerations Neck: Supple, No JVD, Negative Carotid Bruits Chest wall/Lungs: Air entry diminished in bilateral lung bases. No crepitation/rhonchi Cardiovascular: Regular rate, Regular Rhythm, Normal S1, Normal S2, No M/G/R Abdomen: Bowel Sounds Present, Soft, Non Tender, Non-Distended : No dysuria. No renal angle tenderness. No suprapubic tenderness. Extremities: No edema, Capillary Refill Less than 3 Seconds Skin: No rashes, No breakdown Spine: Mild tenderness present around L3-4 region. No paraspinal muscle tenderness. Musculoskeletal:Left partial foot amputation. No Tenderness to Palpation of Joints or Extremities. ROM restricted Neurological: Cranial nerves II-XII grossly intact, DTR 2+/4. No acute focal neurological deficit. Psych/Mental Status: Flat affect Assessment & Plan Assessment/Plan (1) Closed compression fracture of L3 vertebra: PLAN: Plan 53-year-old female admitted with acute on chronic back pain for 1 and half months. It is localized with no radicular or radiation. Patient also had diarrhea and left lower quadrant pain with no fever. She she said she still has some diarrhea from previous hospitalization of December 31 when she was treated with 3 days of IV Zosyn for left-sided colitis. 1. Acute on chronic back pain from loss of height of L3 vertebra ? She has progression loss of height of her L3, not a new fracture but it has worsened. She has been having chronic back pain and has palliative care set up at home with home health as well ? Still very severe pain. Muscle relaxant added. On oxycodone. Patient facial expression does not correlate with the pain she describes. PT and OT 02/15: On my observation and nursing staff report, patient was seen comfortable sleeping when not directly asked but complained of 10/10 when she sees any nursing staff. 02/16: Patient laying on the bed comfortably sleeping. When she wakes up she complained of pain and wants pain medication every 4 hours. Initially thought to discharge her on tramadol and tizanidine. Prescription was sent. Patient is stated there is no one at home to take care of herself. The charge nurse called the patient's daughter that she does not want to take care of her mother. Patient can see pain management Dr. Brandon Bean as an outpatient. 02/17: Discussed with the nursing staff. Discharge canceled yesterday. 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 2. Left hemicolitis ? Cipro and Flagyl as she appears symptomatic with diarrhea but no leukocytosis 02/16: Patient did not had a stool for enteric pathogen panel and C. difficile. Continue IV Cipro and Flagyl for total of 7 days. 02/17: IV antibiotics changed to oral. Last last dose 02/19/2024, p.m. dose 3. 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 Blood pressure is low therefore hold it. 02/15 Entresto, spironolactone and carvedilol resumed with lower dose with holding parameter. Continue holding Lasix. 02/16: Last 2D echo from May 2023 shows EF 15% with severe segmental systolic dysfunction, stage III diastolic dysfunction. Her blood pressure was low as mentioned below. Coreg 12.5 mg twice daily discontinued. On carvedilol 3.125 mg twice daily. Hold Entresto as her blood pressure gets low in the 80s. Furosemide dose decreased to 20 mg daily. Mild hypokalemia therefore spironolactone dose increased to 25 mg daily. 02/17: Blood pressure is 155/78. 4. Essential HTN/HLD ? continue with her home cholesterol medications 02/15: Patient also had transient hypotension probably due to pain medications and required 1 L of Ringer lactate bolus and blood pressure gradually recovered. It was 105/60 yesterday evening but normotensive and 145/82 in the afternoon. Antihypertensive medications resumed at lower dose with holding parameters 5.. DM2: A1c 9.8%. Glucose 151 in BMP. 02/15: Glucoses between 140?190 ?Accu-Chek before meals and at bedtime with Humalog sliding scale coverage and hypoglycemia protocol. DVT: Ambulation Charges/Coding Visit Charges Inpatient E&M: 40122 Subs Hosp L2
--- NOTE | 2024-02-18 15:42 | CASEMGMT ---
Social Work- SW received [facility] of acceptance from [facility] and [facility]. SW discussed acceptances with pt; pt chose [facility]. Pt expressed that she is scared as she has never been to [facility]. SW empathetically listened and offered support. SW faxed level of care. SW will continue to follow. Plan: [facility]; pending level of care SANDRA Duncan
--- NOTE | 2024-02-18 15:52 | CASEMGMT ---
Discharge Planning Patient has chosen [facility]. All other snfs asked to cancel referral. Arelis Ngo DC Planning Asst.
[2024-02-18 16:25] LABS: Bedside Glucose 100 mg/dL (74-106)
[2024-02-18] MEDS: Insulin Glargine-YFGN 100 UNIT/ML Pen 22 UNIT SC (21:59)
[2024-02-18 22:00] VITALS: BP 92/57; PULSE 85; RESP 16; TEMP 36.7; O2SAT 97
[2024-02-18] MEDS: Insulin Lispro 100 UNIT/ML INSULN.PEN SC (22:01)
[2024-02-18 22:54] LABS: Bedside Glucose 165 mg/dL (74-106)
[2024-02-19 02:33] VITALS: BP 86/49; PULSE 60; RESP 16; TEMP 36.6; O2SAT 95
[2024-02-19 03:56] VITALS: BP 92/54; PULSE 80; RESP 16; TEMP 36.9; O2SAT 94
[2024-02-19] MEDS: metroNIDAZOLE 500 MG Tablet PO ×2 (06:40→14:19)
[2024-02-19 06:47] VITALS: BP 115/72; PULSE 89; RESP 16; TEMP 36.5; O2SAT 94
[2024-02-19 07:00] LABS: Bedside Glucose 90 mg/dL (74-106)
[2024-02-19 08:24] LABS: Absolute Lymphocyte Count 1.46 X10^3/uL (0.83-4.51); Absolute Neutrophil Count 6.9 X10^3/uL (2.0-7.7); Basophil# 0.05 X10^3/uL; Basophil% 0.5 % (0-1); Eosinophil# 0.04 X10^3/uL; Eosinophils% 0.4 % (0-5); Hematocrit 39.6 % (37-47); Hemoglobin 12.4 g/dL (12.0-15.0); Lymphocyte # 1.46 X10^3/ul (0.83-4.51); Mean Corp Hgb Conc 31.3 g/dL (32-36); Mean Corpuscular Hgb 26.8 pg (27.0-32.0); Mean Corpuscular Volume 85.7 fL (81-99); Mean Platelet Vol. 9.3 fl (6.2-12.0); Monocyte# 0.56 X10^3/uL; Monocyte% 6.1 % (0-10); NRBC Flagged by Analyzer 0 % (0-5); Neutrophil # 6.94 X10^3/uL (2.7-7.7); Neutrophil % 76.3 % (47-70); Platelet Count 306 K/mm3 (150-450); RBC Distribution Width CV 14.3 % (11.6-14.6); RBC Distribution Width SD 44.5 fl (35.1-43.9); Red Blood Count 4.62 M/mm3 (4.2-5.4); White Blood Count 9.1 K/mm3 (4.4-11.0)
[2024-02-19 08:43] LABS: Anion Gap 7 (5-15); BUN 7 mg/dL (7-18); BUN/Creat Ratio 8.7 RATIO (10-20); Chloride 103 mmol/L (98-107); EST Glomerular Filtration Rate 79 mL/min (>60); Est Glom Filt Rate - Afr Amer 96 mL/min (>60); Estimated Creatinine Clearance 89.06 ml/min; Glucose 88 mg/dL (74-106); Potassium 3.2 mmol/L (3.5-5.1); Sodium Level 137 mmol/L (136-145)
--- NOTE | 2024-02-19 08:46 | CASEMGMT ---
Social Work- SW received LOC approval. KIKE updated DCA and physician. SANDRA Duncan
[2024-02-19] MEDS: Senna/Docusate Sodium 1 Tablet 2 TABLET PO (09:41)
[2024-02-19] MEDS: Spironolactone 25 MG Tablet PO (09:41)
[2024-02-19] MEDS: Pantoprazole Sodium 40 MG Tablet PO (09:41)
[2024-02-19] MEDS: Carvedilol 3.125 MG TABLET PO (09:41)
[2024-02-19] MEDS: Aspirin 81 MG TAB.CHEW PO (09:41)
[2024-02-19] MEDS: Escitalopram Oxalate 10 MG Tablet PO (09:41)
[2024-02-19] MEDS: Clopidogrel Bisulfate 75 MG Tablet PO (09:41)
[2024-02-19] MEDS: Empagliflozin 25 MG Tablet PO (09:42)
[2024-02-19] MEDS: Ciprofloxacin 500 MG Tablet PO (09:42)
--- NOTE | 2024-02-19 10:24 | PCM.TXEXTCAR ---
Diet Diet Order/Speech Therapy: 02/14/24 17:21 Diet: Consistent Carb - Calorie Controlled Food consistency:: Regular Liquid Consistency:: Regular/Thin How many daily calories?: 1600 calorie Routine Orders/Code Status Suppository Type: Dulcolax 10mg Suppository Frequency: Daily PRN Wound(s) back: Wound Type: Burn right buttock: Wound Type: Pressure Injury Dressing Change: foam dressing Therapies Extremity Affected:: Bilateral Lower Physical Therapy: Eval and Treat Occupational Therapy: Eval and Treat Speech Therapy: Eval and Treat Problem/Diagnosis (1) Closed compression fracture of L3 vertebra: Status: Acute Code(s): S32.030A - Wedge compression fracture of third lumbar vertebra, initial encounter for closed fracture Plan 53-year-old female admitted with acute on chronic back pain for 1 and half months. It is localized with no radicular or radiation. Patient also had diarrhea and left lower quadrant pain with no fever. She she said she still has some diarrhea from previous hospitalization of December 31 when she was treated with 3 days of IV Zosyn for left-sided colitis. 1. Acute on chronic back pain from loss of height of L3 vertebra ? She has progression loss of height of her L3, not a new fracture but it has worsened. She has been having chronic back pain and has palliative care set up at home with home health as well ? Still very severe pain. Muscle relaxant added. On oxycodone. Patient facial expression does not correlate with the pain she describes. PT and OT 02/15: On my observation and nursing staff report, patient was seen comfortable sleeping when not directly asked but complained of 10/10 when she sees any nursing staff. 02/16: Patient laying on the bed comfortably sleeping. When she wakes up she complained of pain and wants pain medication every 4 hours. Initially thought to discharge her on tramadol and tizanidine. Prescription was sent. Patient is stated there is no one at home to take care of herself. The charge nurse called the patient's daughter that she does not want to take care of her mother. Patient can see pain management Dr. Brandon Bean as an outpatient. 02/17: Discussed with the nursing staff. Discharge canceled yesterday. 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 2. Left hemicolitis ? Cipro and Flagyl as she appears symptomatic with diarrhea but no leukocytosis 02/16: Patient did not had a stool for enteric pathogen panel and C. difficile. Continue IV Cipro and Flagyl for total of 7 days. 02/17: IV antibiotics changed to oral. Last last dose 02/19/2024, p.m. dose 3. 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 Blood pressure is low therefore hold it. 02/15 Entresto, spironolactone and carvedilol resumed with lower dose with holding parameter. Continue holding Lasix. 02/16: Last 2D echo from May 2023 shows EF 15% with severe segmental systolic dysfunction, stage III diastolic dysfunction. Her blood pressure was low as mentioned below. Coreg 12.5 mg twice daily discontinued. On carvedilol 3.125 mg twice daily. Hold Entresto as her blood pressure gets low in the 80s. Furosemide dose decreased to 20 mg daily. Mild hypokalemia therefore spironolactone dose increased to 25 mg daily. 02/17: Blood pressure is 155/78. 4. Essential HTN/HLD ? continue with her home cholesterol medications 02/15: Patient also had transient hypotension probably due to pain medications and required 1 L of Ringer lactate bolus and blood pressure gradually recovered. It was 105/60 yesterday evening but normotensive and 145/82 in the afternoon. Antihypertensive medications resumed at lower dose with holding parameters 5.. DM2: A1c 9.8%. Glucose 151 in BMP. 02/15: Glucoses between 140?190 ?Accu-Chek before meals and at bedtime with Humalog sliding scale coverage and hypoglycemia protocol. DVT: Ambulation Allergies/Procedures Done in Hospital Allergies latex Allergy (Verified 01/10/24 15:47) Hives Type of Care/Length of Stay Estimated LOS: Convalescent Care Less Than 30 days Type of Care Needed: Skilled Rehab Potential: Good Prognosis: Good Additional Orders/Day of Discharge Day of Discharge: 02/19/24 Dietary and Speech Recommendations Dietitian Recommendations/Changes: Will continue liberalized regular diet with consistency/texture as per BOWL ATTENDANT. Will continue 120mL ensure plus HP 4 times per day w/ medpass. Monitor blood glucose level and restrict dietary carbohydrate as needed. Trend weights closely and adjust ONS as needed to optimize nutrition and prevent energy/pro depletion. Discharge Plan Admission Admit Date/Time: 09/12/24 16:39 Primary Reason for Your Visit: Acute on chronic back pain Attending Provider: Jeremy Alexander Primary Care Provider: [facility] Consult[facility] Providers: Brandon Adames Instructions Additional Instructions / Restrictions: [id number] probiotic, lactobacillus plus acidophilus, 1 tablet 2 times daily for 7 days. MiraLAX 17 g twice daily for 1 week and then once daily Discharge Orders/Prescriptions Prescriptions: New tizanidine 2 mg Tablet 4 mg PO TID 10 Days Qty: 30 0RF sennosides-docusate sodium [Stimulant Laxative Plus] 8.6-50 mg Tablet 2 tab PO BID Qty: 0 0RF ergocalciferol (vitamin D2) [Vitamin D2] 1,250 mcg (50,000 unit) Capsule 1,250 mcg PO We@1000 Qty: 0 0RF nicotine 14 mg/24 hr Patch 24 Hour 14 mg transdermal DAILY 28 Days Qty: 28 0RF oxycodone 5 mg tablet 2.5 - 5 mg PO Q4H PRN PRN (Reason: Pain Score 4-10) 3 Days Qty: 7 0RF Rx Instructions: 2.5 mg for moderate pain 5 mg for severe pain respectively polyethylene glycol 3350 [Miralax] 17 gram/dose powder 17 g PO BID Qty: 238 0RF Rx Instructions: 17 g twice daily for 1 week and then once daily to continue for next 3 weeks. Continued pantoprazole 40 mg tablet,delayed release (DR/EC) 40 mg PO DAILY aspirin 81 mg Capsule 81 mg PO DAILY clopidogrel 75 mg Tablet 75 mg PO DAILY Qty: 30 0RF Patient Comments: patient stated pretty sure I still take that escitalopram oxalate [Lexapro] 10 mg tablet 10 mg PO DAILY Qty: 30 0RF midodrine 2.5 mg tablet 2.5 mg PO BID dapagliflozin propanediol [Farxiga] 10 mg tablet 10 mg PO DAILY insulin glargine [Lantus Solostar U-100 Insulin] 100 unit/mL (3 mL) insulin pen 40 unit subcut DAILY insulin lispro 100 unit/mL insulin pen, half-unit 1 sliding scale dose subcut atorvastatin 80 mg tablet 80 mg PO QHS gabapentin 300 mg Capsule 300 mg PO TID ondansetron 4 mg tablet,disintegrating 4 mg PO Q8H PRN (Reason: nausea and vomiting) Qty: 20 0RF cholecalciferol (vitamin D3) 1,250 mcg (50,000 unit) tablet 1,250 mcg PO WE DIC 2%/RINKU 6%/LIDOC 2% IN saltsable cream 1 - 2 pump subdermal Q6H PRN (Reason: FOR FEET) Changed furosemide 40 mg Tablet 20 mg PO DAILY 30 Days Qty: 0 0RF spironolactone 25 mg tablet 25 mg PO DAILY 30 Days Qty: 0 0RF carvedilol 3.125 mg tablet 6.25 mg PO BID 30 Days Qty: 0 0RF Rx Instructions: Hold for heart less than 50 or systolic blood pressure less than 100 mmHg. insulin glargine [Lantus Solostar U-100 Insulin] 100 unit/mL (3 mL) insulin pen 20 unit subcut QPM 30 Days Qty: 0 0RF Rx Instructions: Hold if glucose less than 130 mg/dl Held Entresto 24-26 mg Tablet 1 tab PO BID 30 Days Qty: 60 0RF Hold Instructions: Hold for SBP less than 130 mmHg Discontinued cyclobenzaprine 5 mg tablet 5 mg PO TID PRN (Reason: muscle spasm) Qty: 30 0RF carvedilol 12.5 mg tablet 12.5 mg PO BID Referrals / Follow Up: Brandon Bean MD [Med Staff - Active Staff] - Within 1 Week (Progressive loss of L3 and L4 vertebral height. Acute on chronic back pain) Juancarlos Pandey NP, [facility] [Med Staff - Adv Practice Prof] - Within 2 Weeks (Severe chronic systolic heart failure, EF 15 %) [facility] [Primary Care Provider] - Within 1 Week Disposition Disposition (needs filled in before D/C Order can be placed): [facility]
[2024-02-19 11:00] VITALS: BP 115/68; PULSE 87; RESP 18; TEMP 36.8; O2SAT 97
--- NOTE | 2024-02-19 11:03 | CASEMGMT ---
Social Work- SW received notification from [facility] that pt insurance in January. SW reached out to [facility] [employer]/Kaitlin to complete referral. Kaitlin reports that when she runs pt information, it is showing as straight medicaid as active. Kaitlin checked a second source as well, which showed the same. Kaitlin will complete an authorized rep form with pt to be bale to reach out to [facility]. KIKE remains available to follow. SANDRA Duncan
--- NOTE | 2024-02-19 11:33 | CASEMGMT ---
Social Work- SW met with [employer]/Kaitlin following pt visit. Kaitlin reports that pt is medicaid eligible and active and will send print off of proof of coverage. SANDRA Duncan
--- NOTE | 2024-02-19 11:39 | DS.PCM_ITS ---
Providers Date of Admission: 02/14/24 Date of Discharge: 02/19/24 Primary Care Physician: [facility] Reason For Visit: BACK Diagnosis Discharge Diagnosis (1) Closed compression fracture of L3 vertebra: Status: Acute Code(s): S32.030A - Wedge compression fracture of third lumbar vertebra, initial encounter for closed fracture Plan 53-year-old female admitted with acute on chronic back pain for 1 and half months. It is localized with no radicular or radiation. Patient also had diarrhea and left lower quadrant pain with no fever. She she said she still has some diarrhea from previous hospitalization of December 31 when she was treated with 3 days of IV Zosyn for left-sided colitis. 1. Acute on chronic back pain from loss of height of L3 vertebra ? She has progression loss of height of her L3, not a new fracture but it has worsened. She has been having chronic back pain and has palliative care set up at home with home health as well ? Still very severe pain. Muscle relaxant added. On oxycodone. Patient facial expression does not correlate with the pain she describes. PT and OT 02/15: On my observation and nursing staff report, patient was seen comfortable sleeping when not directly asked but complained of 10/10 when she sees any nursing staff. 02/16: Patient laying on the bed comfortably sleeping. When she wakes up she complained of pain and wants pain medication every 4 hours. Initially thought to discharge her on tramadol and tizanidine. Prescription was sent. Patient is stated there is no one at home to take care of herself. The charge nurse called the patient's daughter that she does not want to take care of her mother. Patient can see pain management Dr. Brandon Bean as an outpatient. 02/17: Discussed with the nursing staff. Discharge canceled yesterday. 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 02/18: Patient was given prescription of oxycodone 2.5 mg for moderate pain and 5 mg for severe pain respectively every 4 hours, total 7 tablets. Also MiraLAX 17 g twice daily for 1 week and then once daily to continue for next 3 weeks. On Senna-S 2 tablet twice daily. Patient did not had bowel movement for last few days. 2. Left hemicolitis ? Cipro and Flagyl as she appears symptomatic with diarrhea but no leukocytosis 02/16: Patient did not had a stool for enteric pathogen panel and C. difficile. Continue IV Cipro and Flagyl for total of 7 days. 02/17: IV antibiotics changed to oral. Last last dose 02/19/2024, p.m. dose 02/18: Patient completed Cipro and Flagyl today. 3. 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 Blood pressure is low therefore hold it. 02/15 Entresto, spironolactone and carvedilol resumed with lower dose with holding parameter. Continue holding Lasix. 02/16: Last 2D echo from May 2023 shows EF 15% with severe segmental systolic dysfunction, stage III diastolic dysfunction. Her blood pressure was low as mentioned below. Coreg 12.5 mg twice daily discontinued. On carvedilol 3.125 mg twice daily. Hold Entresto as her blood pressure gets low in the 80s. Furosemide dose decreased to 20 mg daily. Mild hypokalemia therefore spironolactone dose increased to 25 mg daily. 02/17: Blood pressure is 155/78. 02/18 patient follows Juancarlos Peter NP advised to continue following. Dose of carvedilol and Entresto reviewed because of her low blood pressure. 4. Essential HTN/HLD ? continue with her home cholesterol medications 02/15: Patient also had transient hypotension probably due to pain medications and required 1 L of Ringer lactate bolus and blood pressure gradually recovered. It was 105/60 yesterday evening but normotensive and 145/82 in the afternoon. Antihypertensive medications resumed at lower dose with holding parameters 5.. DM2: A1c 9.8%. Glucose 151 in BMP. 02/15: Glucoses between 140?190 02/18 glucose is 100. ?Accu-Chek before meals and at bedtime with Humalog sliding scale coverage and hypoglycemia protocol. DVT: Ambulation Discharge medication reconciliation done. Discharge follow-up instructions completed. Discharge process discussed with the patient and all questions were answered to patient's satisfaction. Follow with PCP in 1 to 2 weeks Total time spent, exact 35 minutes on discharge meds reconciliation, examination, coordination of care with nurses and ancillary staff, review of imaging and blood test and discussion with the patient on follow-up instructions. Medications at Discharge Home Medications aspirin 81 mg capsule 81 mg PO DAILY heart health 08/10/22 clopidogrel 75 mg tablet 75 mg PO DAILY anti platelet #30 tabs 02/03/23 escitalopram oxalate 10 mg tablet (Lexapro) 10 mg PO DAILY mental health #30 tabs 02/03/23 pantoprazole 40 mg tablet,delayed release 40 mg PO DAILY reflux 04/18/23 sacubitril 24 mg-valsartan 26 mg tablet (Entresto) 1 tab PO BID 30 days #60 tabs 05/07/23 midodrine 2.5 mg tablet 2.5 mg PO BID 11/14/23 atorvastatin 80 mg tablet 80 mg PO QHS cholesterol 12/29/23 dapagliflozin propanediol 10 mg tablet (Farxiga) 10 mg PO DAILY 12/29/23 gabapentin 300 mg capsule 300 mg PO TID 12/29/23 insulin glargine 100 unit/mL (3 mL) subcutaneous pen (Lantus Solostar U-100 Insulin) 40 unit subcut DAILY 12/29/23 insulin lispro 100 unit/mL subcutaneous half-unit pen 1 sliding scale dose subcut 12/29/23 ondansetron 4 mg disintegrating tablet 4 mg PO Q8H PRN nausea and vomiting #20 tabs 01/01/24 DIC 2%/RINKU 6%/LIDOC 2% IN saltsable 1 - 2 pump subdermal Q6H PRN FOR FEET 02/14/24 cholecalciferol (vitamin D3) 1,250 mcg (50,000 unit) tablet 1,250 mcg PO WE 02/14/24 furosemide 40 mg tablet 20 mg (1/2 x 40 mg) PO DAILY 30 days #0 tabs 02/17/24 sennosides 8.6 mg-docusate sodium 50 mg tablet (Stimulant Laxative Plus) 2 tab PO BID #0 tabs 02/17/24 spironolactone 25 mg tablet 25 mg PO DAILY 30 days #0 tabs 02/17/24 tizanidine 2 mg tablet 4 mg (2 x 2 mg) PO TID 10 days #30 tabs 02/17/24 carvedilol 3.125 mg tablet 6.25 mg (2 x 3.125 mg) PO BID blood pressure 30 days #0 tabs 02/19/24 ergocalciferol (vitamin D2) 1,250 mcg (50,000 unit) capsule (Vitamin D2) 1,250 mcg PO We@1000 #0 caps 02/19/24 insulin glargine 100 unit/mL (3 mL) subcutaneous pen (Lantus Solostar U-100 Insulin) 20 unit (0.2 mL) subcut QPM 30 days #0 mL 02/19/24 nicotine 14 mg/24 hr daily transdermal patch 14 mg transdermal DAILY 28 days #28 ea 02/19/24 oxycodone 5 mg tablet 2.5 - 5 mg (0.5 - 1 x 5 mg) PO Q4H PRN PRN Pain Score 4-10 3 days #7 tabs 02/19/24 polyethylene glycol 3350 17 gram/dose oral powder (Miralax) 17 g PO BID #238 grams 02/19/24 Physical Exam Narrative Seen and examined. No acute change. Patient is stated that she gets too much pain. Did not had a bowel movement for last for 5 days. Physical exam General: Alert, Oriented x3, Cooperative HEENT: Atraumatic, PERRLA, EOMI, Normocephalic Oral: No Gingival or Mucosal Lesions/ Ulcerations Neck: Supple, No JVD, Negative Carotid Bruits Chest wall/Lungs: Air entry diminished in bilateral lung bases. No crepitation/rhonchi Cardiovascular: Regular rate, Regular Rhythm, Normal S1, Normal S2, No M/G/R Abdomen: Bowel Sounds Present, Soft, Non Tender, Non-Distended : No dysuria. No renal angle tenderness. No suprapubic tenderness. Extremities: No edema, Capillary Refill Less than 3 Seconds Skin: No rashes, No breakdown Spine: Mild tenderness present around L3-4 region. No paraspinal muscle tenderness. Musculoskeletal:Left partial foot amputation. No Tenderness to Palpation of Joints or Extremities. ROM restricted Neurological: Cranial nerves II-XII grossly intact, DTR 2+/4. No acute focal neurological deficit. Psych/Mental Status: Flat affect Weight / BMI Weight Weight: 174 lb 4.8 oz Body Mass Index (BMI) 27.3 ABG / Lab / Microbiology Data 02/19/24 07:16 02/19/24 07:16 Laboratory: Laboratory Results - last 24 hr 02/18/24 11:39: POC Glucose 102 02/18/24 16:08: POC Glucose 100 02/18/24 21:57: POC Glucose 165 H 02/19/24 06:39: POC Glucose 90 02/19/24 07:16: WBC 9.1, RBC 4.62, Hgb 12.4, Hct 39.6, MCV 85.7, MCH 26.8 L, M CHC 31.3 L, RDW Std Deviation 44.5 H, RDW Coeff of Spencer 14.3, Plt Count 306, MPV 9.3, Immature Gran % (Auto) 0.700, Neut % (Auto) 76.3 H, Lymph % (Auto) 16.0 L, Jerome % (Auto) 6.1, Eos % (Auto) 0.4, Baso % (Auto) 0.5, Absolute Neuts (auto) 6.9, Absolute Lymphs (auto) 1.46, Nucleated RBC % 0, Sodium 137, Potassium 3.2 L , Chloride 103, Carbon Dioxide 27.0, Anion Gap 7, BUN 7, Creatinine 0.80, Estim Creat Clear Calc 89.06, Est GFR (MDRD) Af Amer 96, Est GFR (MDRD) Non-Af 79, B UN/Creatinine Ratio 8.7 L, Glucose 88, Calcium 9.0 D/C Instructions Discharge Diet: No restrictions Weight Bearing Status: Weight bearing as tolerated Call your doctor if you observe: Fever of 101 or Higher, Coldness, Increased Pain, Numbness or Tingling, Change in Color, Inability to urinate, Inability to have a bowel movement, Shortness of breath, Dizziness, Fainting spells, Swelling in the ankles, Chest pain, Prolonged hiccupping, Increased palpitations (irregular heartbeat) and Calf discomfort When: IN 2 WEEKS Meaningful Use Info Meaningful Use Meaningful Use Diagnoses (Choose all that apply): None applicable Ischemic Stroke Statin Dosing Therapy Reference: STATIN DOSE THERAPY REFERENCE: * Patients > 75 years receive moderate or high dose statin therapy. * Patients 75 years or YOUNGER should receive HIGH intensity statin dose unless contraindicated. You will be required to document reason for non-treatment if statin daily dose does not meet guidelines. HIGH DOSE STATIN THERAPY DAILY Atorvastatin > than or = to 40 mg Rosuvastatin > than or = to 20 mg Amlodipine + Atorvastatin > than or = to 2.5/40 mg Ezetimibe + Simvastatin 10/80 mg Simvastatin 80mg Discharge Plan Admission Admit Date/Time: 02/14/24 16:39 Primary Reason for Your Visit: Acute on chronic back pain Attending Provider: Jeremy Alexander [facility] Providers: Brandon Adames Instructions Additional Instructions / Restrictions: [id number] probiotic, lactobacillus plus acidophilus, 1 tablet 2 times daily for 7 days. MiraLAX 17 g twice daily for 1 week and then once daily Discharge Orders/Prescriptions Prescriptions: New tizanidine 2 mg Tablet 4 mg PO TID 10 Days Qty: 30 0RF sennosides-docusate sodium [Stimulant Laxative Plus] 8.6-50 mg Tablet 2 tab PO BID Qty: 0 0RF ergocalciferol (vitamin D2) [Vitamin D2] 1,250 mcg (50,000 unit) Capsule 1,250 mcg PO We@1000 Qty: 0 0RF nicotine 14 mg/24 hr Patch 24 Hour 14 mg transdermal DAILY 28 Days Qty: 28 0RF oxycodone 5 mg tablet 2.5 - 5 mg PO Q4H PRN PRN (Reason: Pain Score 4-10) 3 Days Qty: 7 0RF Rx Instructions: 2.5 mg for moderate pain 5 mg for severe pain respectively polyethylene glycol 3350 [Miralax] 17 gram/dose powder 17 g PO BID Qty: 238 0RF Rx Instructions: 17 g twice daily for 1 week and then once daily to continue for next 3 weeks. Continued pantoprazole 40 mg tablet,delayed release (DR/EC) 40 mg PO DAILY aspirin 81 mg Capsule 81 mg PO DAILY clopidogrel 75 mg Tablet 75 mg PO DAILY Qty: 30 0RF Patient Comments: patient stated pretty sure I still take that escitalopram oxalate [Lexapro] 10 mg tablet 10 mg PO DAILY Qty: 30 0RF midodrine 2.5 mg tablet 2.5 mg PO BID dapagliflozin propanediol [Farxiga] 10 mg tablet 10 mg PO DAILY insulin glargine [Lantus Solostar U-100 Insulin] 100 unit/mL (3 mL) insulin pen 40 unit subcut DAILY insulin lispro 100 unit/mL insulin pen, half-unit 1 sliding scale dose subcut atorvastatin 80 mg tablet 80 mg PO QHS gabapentin 300 mg Capsule 300 mg PO TID ondansetron 4 mg tablet,disintegrating 4 mg PO Q8H PRN (Reason: nausea and vomiting) Qty: 20 0RF cholecalciferol (vitamin D3) 1,250 mcg (50,000 unit) tablet 1,250 mcg PO WE DIC 2%/RINKU 6%/LIDOC 2% IN saltsable cream 1 - 2 pump subdermal Q6H PRN (Reason: FOR FEET) Changed furosemide 40 mg Tablet 20 mg PO DAILY 30 Days Qty: 0 0RF spironolactone 25 mg tablet 25 mg PO DAILY 30 Days Qty: 0 0RF carvedilol 3.125 mg tablet 6.25 mg PO BID 30 Days Qty: 0 0RF Rx Instructions: Hold for heart less than 50 or systolic blood pressure less than 100 mmHg. insulin glargine [Lantus Solostar U-100 Insulin] 100 unit/mL (3 mL) insulin pen 20 unit subcut QPM 30 Days Qty: 0 0RF Rx Instructions: Hold if glucose less than 130 mg/dl Held Entresto 24-26 mg Tablet 1 tab PO BID 30 Days Qty: 60 0RF Hold Instructions: Hold for SBP less than 130 mmHg Discontinued cyclobenzaprine 5 mg tablet 5 mg PO TID PRN (Reason: muscle spasm) Qty: 30 0RF carvedilol 12.5 mg tablet 12.5 mg PO BID Referrals / Follow Up: Brandon Bean MD [Med Staff - Active Staff] - Within 1 Week (Progressive loss of L3 and L4 vertebral height. Acute on chronic back pain) Juancarlos Pandey NP, [facility] [Med Staff - Adv Practice Prof] - Within 2 Weeks (Severe chronic systolic heart failure, EF 15 %) [facility] [Primary Care Provider] - Within 1 Week Disposition Disposition (needs filled in before D/C Order can be placed): Half-Way Facility Charges/Coding Visit Charges Inpatient E&M: 62294 Disch Hosp >30min
[2024-02-19 11:40] LABS: Bedside Glucose 100 mg/dL (74-106)
--- NOTE | 2024-02-19 12:20 | PHA.DC.MR.R ---
Pharmacy [place] Med Reconciliation Pharmacy Service has performed discharge medication reconciliation for this patient. The patient's discharge medication list was reviewed for discrepancies and discrepancies were resolved. Medications at Discharge Home Medications aspirin 81 mg capsule 81 mg PO DAILY heart health 08/10/22 clopidogrel 75 mg tablet 75 mg PO DAILY anti platelet #30 tabs 02/03/23 escitalopram oxalate 10 mg tablet (Lexapro) 10 mg PO DAILY mental health #30 tabs 02/03/23 pantoprazole 40 mg tablet,delayed release 40 mg PO DAILY reflux 04/18/23 sacubitril 24 mg-valsartan 26 mg tablet (Entresto) 1 tab PO BID 30 days #60 tabs 05/07/23 midodrine 2.5 mg tablet 2.5 mg PO BID 11/14/23 atorvastatin 80 mg tablet 80 mg PO QHS cholesterol 12/29/23 dapagliflozin propanediol 10 mg tablet (Farxiga) 10 mg PO DAILY 12/29/23 gabapentin 300 mg capsule 300 mg PO TID 12/29/23 insulin glargine 100 unit/mL (3 mL) subcutaneous pen (Lantus Solostar U-100 Insulin) 40 unit subcut DAILY 12/29/23 insulin lispro 100 unit/mL subcutaneous half-unit pen 1 sliding scale dose subcut 12/29/23 ondansetron 4 mg disintegrating tablet 4 mg PO Q8H PRN nausea and vomiting #20 tabs 01/01/24 DIC 2%/RINKU 6%/LIDOC 2% IN saltsable 1 - 2 pump subdermal Q6H PRN FOR FEET 02/14/24 cholecalciferol (vitamin D3) 1,250 mcg (50,000 unit) tablet 1,250 mcg PO WE 02/14/24 furosemide 40 mg tablet 20 mg (1/2 x 40 mg) PO DAILY 30 days #0 tabs 02/17/24 sennosides 8.6 mg-docusate sodium 50 mg tablet (Stimulant Laxative Plus) 2 tab PO BID #0 tabs 02/17/24 spironolactone 25 mg tablet 25 mg PO DAILY 30 days #0 tabs 02/17/24 tizanidine 2 mg tablet 4 mg (2 x 2 mg) PO TID 10 days #30 tabs 02/17/24 carvedilol 3.125 mg tablet 6.25 mg (2 x 3.125 mg) PO BID blood pressure 30 days #0 tabs 02/19/24 ergocalciferol (vitamin D2) 1,250 mcg (50,000 unit) capsule (Vitamin D2) 1,250 mcg PO We@1000 #0 caps 02/19/24 insulin glargine 100 unit/mL (3 mL) subcutaneous pen (Lantus Solostar U-100 Insulin) 20 unit (0.2 mL) subcut QPM 30 days #0 mL 02/19/24 nicotine 14 mg/24 hr daily transdermal patch 14 mg transdermal DAILY 28 days #28 ea 02/19/24 oxycodone 5 mg tablet 2.5 - 5 mg (0.5 - 1 x 5 mg) PO Q4H PRN PRN Pain Score 4-10 3 days #7 tabs 02/19/24
--- NOTE | 2024-02-19 14:10 | CASEMGMT ---
Social Work SW set up a 4pm wheelchair van w/Physicians, to take pt to [facility] today. SW let pt know, let bedside RN know. Pt agreeable to have SW let her mother know. S W called pts' mother Rebecca Dueñas, let her know pt is going to [facility] today at 4pm, states understanding. MARTIN Marc
--- NOTE | 2024-02-19 14:16 | NURSING ---
Report called to [facility] at [phone] to [facility]. Pt to be picked up at 4pm.
[2024-02-19] MEDS: tiZANidine HCl 2 MG Tablet 4 MG PO (14:19)
[2024-02-19] MEDS: Gabapentin 300 MG Capsule PO (14:19)
[2024-02-19 14:23] VITALS: BP 125/71; PULSE 86; RESP 17; TEMP 36.6; O2SAT 99
--- NOTE | 2024-02-19 14:27 | CASEMGMT ---
Social Work LOC has been obtained.? Physician updated and pt is ready for discharge today.? PASSR form completed in [facility] and sent along with discharge orders and level of care to [facility] via [facility].? Transportation arranged with [facility] for 16:00 pickup via wheelchair van.?SW met with pt and they are agreeable to discharge plan as stated above.? Bedside nurse notified of discharge time. Disposition:[facility]?, skilled level of care under convalescent stay. SANDRA Duncan
--- NOTE | 2024-03-06 08:01 | CASEMGMT ---
Social Work SW received message from [facility]. Pt has been denied for Waiver Services. SANDRA Garcia
== END 2024-02-19 15:33 ==
LOC: ED 15:46 → MS3 17:11
PROVIDERS: Admitting Provider Family Medicine; Emergency Provider Emergency Medicine; Visit Provider Internal Medicine
DX: S32.030A Wedge compression fracture of third lumbar vertebra, initial encounter for closed fracture (principal); I50.42 Chronic combined systolic (congestive) and diastolic (congestive) heart failure; I11.0 Hypertensive heart disease with heart failure; E11.9 Type 2 diabetes mellitus without complications; Z79.4 Long term (current) use of insulin; E87.6 Hypokalemia; I25.5 Ischemic cardiomyopathy; Z79.82 Long term (current) use of aspirin; I25.10 Atherosclerotic heart disease of native coronary artery without angina pectoris; K52.9 Noninfective gastroenteritis and colitis, unspecified; Z79.84 Long term (current) use of oral hypoglycemic drugs; Z99.81 Dependence on supplemental oxygen; Z79.899 Other long term (current) drug therapy; Z79.02 Long term (current) use of antithrombotics/antiplatelets; E78.5 Hyperlipidemia, unspecified; F17.210 Nicotine dependence, cigarettes, uncomplicated; G89.29 Other chronic pain; X39.8XXA Other exposure to forces of nature, initial encounter
CPT/HCPCS: 36415; 74177; 80048; 82962; 83036; 85025; 96365; 96368; 96375; 96376; 97110; 97162; 97166; 97530; 97535; 99221; 99284; J7040; J7050; J7120; Q9967; A4216; G0378; J2405

== ENCOUNTER 2024-04-25 12:25 | Inpatient (IN) | payer MEDICAID, SELFPAY ==
[2024-04-25] VITALS (8 sets, daily range): BP systolic 114–153; BP diastolic 65–97; PULSE 89–110; RESP 16–18; TEMP 36.3–36.7; O2SAT 96–99; BMI 27.0; BMI 25.4
[2024-04-25 14:00] LABS: Absolute Lymphocyte Count 0.97 X10^3/uL (0.83-4.51); Absolute Neutrophil Count 10.8 X10^3/uL (2.0-7.7); Basophil# 0.05 X10^3/uL; Basophil% 0.4 % (0-1); Eosinophil# 0.06 X10^3/uL; Eosinophils% 0.5 % (0-5); Hematocrit 39.4 % (37-47); Hemoglobin 13.3 g/dL (12.0-15.0); Lymphocyte # 0.97 X10^3/ul (0.83-4.51); Lymphocyte % 7.7 % (19-41); Mean Corp Hgb Conc 33.8 g/dL (32-36); Mean Corpuscular Volume 79.9 fL (81-99); Mean Platelet Vol. 9.4 fl (6.2-12.0); Monocyte# 0.53 X10^3/uL; Monocyte% 4.2 % (0-10); NRBC Flagged by Analyzer 0 % (0-5); Neutrophil # 10.82 X10^3/uL (2.7-7.7); Neutrophil % 86.1 % (47-70); Platelet Count 259 K/mm3 (150-450); RBC Distribution Width SD 37.1 fl (35.1-43.9); Red Blood Count 4.93 M/mm3 (4.2-5.4); White Blood Count 12.6 K/mm3 (4.4-11.0)
[2024-04-25] MEDS: Ketorolac 30 MG/ML Syringe IV (14:00)
[2024-04-25 14:18] LABS: ALB/GLOB Ratio 0.4 RATIO (0.9-2.4); AST(SGOT) 17 U/L (15-37); Alanine Aminotransfer ALT/SGPT 9 U/L (13-56); Alkaline Phosphatase 124 U/L (45-117); Anion Gap 6 (5-15); BUN 19 mg/dL (7-18); BUN/Creat Ratio 29.4 RATIO (10-20); Calcium,Total 8.7 mg/dL (8.5-10.1); Chloride 95 mmol/L (98-107); Creatinine, Serum 0.65 mg/dL (0.55-1.02); EST Glomerular Filtration Rate 102 mL/min (>60); Est Glom Filt Rate - Afr Amer 123 mL/min (>60); Estimated Creatinine Clearance 109.13 ml/min; Globulin 5.7 g/dL (2.2-4.2); Glucose 359 mg/dL (74-106); Lipase 22 U/L (13-75); Potassium 3.5 mmol/L (3.5-5.1); Protein, Total 7.7 g/dL (6.4-8.2); Sodium Level 130 mmol/L (136-145)
[2024-04-25] MEDS: Ciprofloxacin 400 MG/200 ML BAG 200 MG IV (15:56)
[2024-04-25] MEDS: metroNIDAZOLE 500 MG/100 ML BAG 100 MG IV (17:14)
[2024-04-25] MEDS: Insulin Lispro 100 UNIT/ML INSULN.PEN SC ×2 (17:17→22:10)
[2024-04-25 17:39] LABS: Bedside Glucose 336 mg/dL (74-106)
[2024-04-25] MEDS: oxyCODONE 5 MG Tablet PO (17:43)
[2024-04-25 17:56] LABS: Reflex Lactate? Y
[2024-04-25] MEDS: Fluconazole IVPB 400 MG/200 ML BAG 100 MG IV (18:43)
[2024-04-25] MEDS: Lactated Ringers 1,000 ML 75 ML IV (19:41)
[2024-04-25] MEDS: Ondansetron 4 MG/2 ML Vial IV (21:49)
[2024-04-25] MEDS: Carvedilol 6.25 MG Tablet PO (22:01)
[2024-04-25] MEDS: Gabapentin 300 MG Capsule PO (22:01)
[2024-04-25] MEDS: Acetaminophen 500 MG Tablet 1000 MG PO (22:02)
[2024-04-25] MEDS: SACUBITRIL/VALSARTAN 24/26 MG TABLET 1 EACH PO (22:02)
[2024-04-25] MEDS: tiZANidine HCl 2 MG Tablet 4 MG PO (22:02)
[2024-04-25] MEDS: Atorvastatin Calcium 80 MG Tablet PO (22:04)
[2024-04-25] MEDS: Insulin Glargine-YFGN 100 UNIT/ML Pen 20 UNIT SC (22:08)
[2024-04-25] MEDS: Nystatin Powder 15gm Bottle 1 APPLIC TOPICAL (22:11)
[2024-04-25 22:33] LABS: Bedside Glucose 341 mg/dL (74-106)
[2024-04-25] MEDS: Ketorolac 15 MG/ML Vial IV (22:36)
[2024-04-26] VITALS (9 sets, daily range): BP systolic 102–137; BP diastolic 51–79; PULSE 73–93; RESP 16–18; TEMP 36.2–36.6; O2SAT 94–97
[2024-04-26 00:05] LABS: M R Staph aureus DNA By PCR Negative (Negative); Probe Check PASS; Specimen Processing Control PASS
[2024-04-26] MEDS: Piperacil/Tazobactam 3.375 GM in 0.9% Normal Saline (50mL MB+) 50 ML IV ×3 (00:23→14:47)
[2024-04-26] MEDS: 0.9% Normal Saline (1000mL) 1,000 ML 75 ML IV (04:05)
[2024-04-26] MEDS: Nystatin Powder 15gm Bottle 1 APPLIC TOPICAL ×3 (05:28→20:02)
[2024-04-26] MEDS: Acetaminophen 500 MG Tablet 1000 MG PO ×3 (05:28→19:42)
[2024-04-26] MEDS: Gabapentin 300 MG Capsule PO ×2 (05:28→19:44)
[2024-04-26] MEDS: tiZANidine HCl 2 MG Tablet 4 MG PO ×3 (05:28→19:43)
[2024-04-26] MEDS: Ondansetron 4 MG/2 ML Vial IV (05:42)
[2024-04-26 05:49] LABS: Absolute Lymphocyte Count 1.72 X10^3/uL (0.83-4.51); Absolute Neutrophil Count 6.8 X10^3/uL (2.0-7.7); Basophil# 0.04 X10^3/uL; Basophil% 0.4 % (0-1); Eosinophil# 0.11 X10^3/uL; Eosinophils% 1.2 % (0-5); Hematocrit 33.4 % (37-47); Hemoglobin 11.3 g/dL (12.0-15.0); Lymphocyte # 1.72 X10^3/ul (0.83-4.51); Lymphocyte % 18.4 % (19-41); Mean Corp Hgb Conc 33.8 g/dL (32-36); Mean Corpuscular Hgb 27.6 pg (27.0-32.0); Mean Corpuscular Volume 81.7 fL (81-99); Mean Platelet Vol. 9.3 fl (6.2-12.0); Monocyte# 0.53 X10^3/uL; Monocyte% 5.7 % (0-10); NRBC Flagged by Analyzer 0 % (0-5); Neutrophil # 6.83 X10^3/uL (2.7-7.7); Neutrophil % 73.1 % (47-70); Platelet Count 234 K/mm3 (150-450); RBC Distribution Width CV 13.2 % (11.6-14.6); RBC Distribution Width SD 39.2 fl (35.1-43.9); Red Blood Count 4.09 M/mm3 (4.2-5.4); White Blood Count 9.3 K/mm3 (4.4-11.0)
[2024-04-26 07:11] LABS: ALB/GLOB Ratio 0.4 RATIO (0.9-2.4); AST(SGOT) 13 U/L (15-37); Alanine Aminotransfer ALT/SGPT 8 U/L (13-56); Albumin, Serum 1.7 g/dL (3.2-5.0); Alkaline Phosphatase 95 U/L (45-117); Anion Gap 4 (5-15); BUN 19 mg/dL (7-18); BUN/Creat Ratio 23.5 RATIO (10-20); Chloride 98 mmol/L (98-107); Creatinine, Serum 0.81 mg/dL (0.55-1.02); EST Glomerular Filtration Rate 79 mL/min (>60); Est Glom Filt Rate - Afr Amer 96 mL/min (>60); Estimated Creatinine Clearance 79.01 ml/min; Globulin 4.7 g/dL (2.2-4.2); Glucose 146 mg/dL (74-106); Magnesium 2.2 mg/dL (1.6-2.6); Phosphorus 3.2 mg/dL (2.5-4.9); Potassium 3.2 mmol/L (3.5-5.1); Protein, Total 6.4 g/dL (6.4-8.2); Sodium Level 132 mmol/L (136-145)
[2024-04-26 07:12] LABS: Bedside Glucose 150 mg/dL (74-106)
[2024-04-26] MEDS: Ketorolac 15 MG/ML Vial IV (07:43)
[2024-04-26] MEDS: proCHLORPERazine 10 MG/2 ML Vial 5 MG IV (07:44)
[2024-04-26] MEDS: Aspirin 81 MG TAB.CHEW PO (09:34)
[2024-04-26] MEDS: Enoxaparin 40 MG/0.4 ML Syringe SC (10:59)
[2024-04-26] MEDS: Insulin Glargine-YFGN 100 UNIT/ML Pen 40 UNIT SC (11:00)
[2024-04-26] MEDS: Fluconazole 100 MG Tablet 200 MG PO (11:01)
[2024-04-26] MEDS: Carvedilol 6.25 MG Tablet PO ×2 (11:01→19:42)
[2024-04-26] MEDS: SACUBITRIL/VALSARTAN 24/26 MG TABLET 0.5 EACH PO ×2 (11:01→19:43)
[2024-04-26] MEDS: Menthol/Lanolin/Calamine/Znox 113 GM Tube 1 APPLIC TOPICAL (11:01)
[2024-04-26] MEDS: Escitalopram Oxalate 10 MG Tablet PO (11:02)
[2024-04-26] MEDS: Pantoprazole Sodium 40 MG Tablet PO (11:03)
[2024-04-26] MEDS: Clopidogrel Bisulfate 75 MG Tablet PO (11:03)
[2024-04-26] MEDS: Insulin Lispro 100 UNIT/ML INSULN.PEN SC ×2 (11:09→19:58)
[2024-04-26 11:37] LABS: Bedside Glucose 280 mg/dL (74-106)
[2024-04-26 16:07] LABS: M R Staph aureus DNA By PCR Negative (Negative); Probe Check PASS; Staph aureus DNA By PCR NEGATIVE (Negative)
[2024-04-26] MEDS: Lactobacillis Acidophilus 1 CAP PO (17:05)
[2024-04-26] MEDS: Ampicillin/Sulbactam 3 GM in 0.9% Normal Saline (100mL MB+) 100 ML IV (17:05)
[2024-04-26] MEDS: Atorvastatin Calcium 80 MG Tablet PO (19:44)
[2024-04-26] MEDS: oxyCODONE 5 MG Tablet PO (19:55)
[2024-04-26] MEDS: Insulin Glargine-YFGN 100 UNIT/ML Pen 20 UNIT SC (19:59)
[2024-04-26 20:27] LABS: Bedside Glucose 319 mg/dL (74-106)
[2024-04-27] VITALS (9 sets, daily range): BP systolic 131–147; BP diastolic 70–86; PULSE 73–84; RESP 18; TEMP 36.5–36.7; O2SAT 94–100
[2024-04-27] MEDS: Ampicillin/Sulbactam 3 GM in 0.9% Normal Saline (100mL MB+) 100 ML IV ×5 (00:34→23:44)
[2024-04-27] MEDS: Ketorolac 15 MG/ML Vial IV (00:38)
[2024-04-27] MEDS: tiZANidine HCl 2 MG Tablet 4 MG PO ×3 (05:58→21:21)
[2024-04-27] MEDS: Acetaminophen 500 MG Tablet 1000 MG PO ×3 (05:58→21:22)
[2024-04-27] MEDS: Nystatin Powder 15gm Bottle 1 APPLIC TOPICAL ×3 (05:59→21:22)
[2024-04-27] MEDS: Lactobacillis Acidophilus 1 CAP PO ×2 (05:59→21:27)
[2024-04-27] MEDS: Ondansetron 4 MG/2 ML Vial IV ×2 (06:00→23:46)
[2024-04-27] MEDS: Gabapentin 300 MG Capsule PO ×3 (06:10→21:22)
[2024-04-27] MEDS: Insulin Lispro 100 UNIT/ML INSULN.PEN SC ×4 (06:16→21:26)
[2024-04-27 06:38] LABS: Bedside Glucose 185 mg/dL (74-106)
[2024-04-27] MEDS: Escitalopram Oxalate 10 MG Tablet PO (09:42)
[2024-04-27] MEDS: Enoxaparin 40 MG/0.4 ML Syringe SC (09:42)
[2024-04-27] MEDS: Menthol/Lanolin/Calamine/Znox 113 GM Tube 1 APPLIC TOPICAL ×2 (09:42→21:22)
[2024-04-27] MEDS: SACUBITRIL/VALSARTAN 24/26 MG TABLET 0.5 EACH PO ×2 (09:43→21:21)
[2024-04-27] MEDS: Carvedilol 6.25 MG Tablet PO ×2 (09:43→21:22)
[2024-04-27] MEDS: Pantoprazole Sodium 40 MG Tablet PO (09:43)
[2024-04-27] MEDS: Aspirin 81 MG TAB.CHEW PO (09:43)
[2024-04-27] MEDS: Clopidogrel Bisulfate 75 MG Tablet PO (09:43)
[2024-04-27] MEDS: Fluconazole 100 MG Tablet 200 MG PO (09:43)
[2024-04-27] MEDS: Insulin Glargine-YFGN 100 UNIT/ML Pen 40 UNIT SC (09:45)
[2024-04-27] MEDS: Mupirocin Ointment 22gm Tube 1 APPLIC TOPICAL ×2 (11:26→21:25)
[2024-04-27 12:03] LABS: Bedside Glucose 321 mg/dL (74-106)
[2024-04-27] MEDS: oxyCODONE 5 MG Tablet PO ×2 (12:05→21:22)
[2024-04-27 13:09] LABS: Absolute Lymphocyte Count 1.39 X10^3/uL (0.83-4.51); Absolute Neutrophil Count 6.8 X10^3/uL (2.0-7.7); Basophil# 0.06 X10^3/uL; Basophil% 0.7 % (0-1); Eosinophils% 1.1 % (0-5); Hematocrit 38.1 % (37-47); Hemoglobin 12.3 g/dL (12.0-15.0); Lymphocyte # 1.39 X10^3/ul (0.83-4.51); Lymphocyte % 15.7 % (19-41); Mean Corp Hgb Conc 32.3 g/dL (32-36); Mean Corpuscular Hgb 26.9 pg (27.0-32.0); Mean Corpuscular Volume 83.2 fL (81-99); Mean Platelet Vol. 9.3 fl (6.2-12.0); Monocyte# 0.43 X10^3/uL; Monocyte% 4.9 % (0-10); NRBC Flagged by Analyzer 0 % (0-5); Neutrophil # 6.76 X10^3/uL (2.7-7.7); Neutrophil % 76.4 % (47-70); Platelet Count 284 K/mm3 (150-450); RBC Distribution Width CV 13.3 % (11.6-14.6); RBC Distribution Width SD 40.4 fl (35.1-43.9); Red Blood Count 4.58 M/mm3 (4.2-5.4); White Blood Count 8.9 K/mm3 (4.4-11.0)
[2024-04-27 13:21] LABS: Anion Gap 5 (5-15); BUN 17 mg/dL (7-18); BUN/Creat Ratio 25.8 RATIO (10-20); Calcium,Total 8.2 mg/dL (8.5-10.1); Chloride 98 mmol/L (98-107); Creatinine, Serum 0.66 mg/dL (0.55-1.02); EST Glomerular Filtration Rate 100 mL/min (>60); Est Glom Filt Rate - Afr Amer 121 mL/min (>60); Estimated Creatinine Clearance 96.96 ml/min; Glucose 265 mg/dL (74-106); Potassium 4.1 mmol/L (3.5-5.1); Sodium Level 134 mmol/L (136-145)
[2024-04-27] MEDS: Insulin Lispro 100 UNIT/ML INSULN.PEN 10 UNIT SC (16:47)
[2024-04-27 17:06] LABS: Bedside Glucose 278 mg/dL (74-106)
[2024-04-27] MEDS: Atorvastatin Calcium 80 MG Tablet PO (21:22)
[2024-04-27] MEDS: Insulin Glargine-YFGN 100 UNIT/ML Pen 20 UNIT SC (21:25)
[2024-04-27 22:00] LABS: Bedside Glucose 188 mg/dL (74-106)
[2024-04-28] VITALS (9 sets, daily range): BP systolic 97–150; BP diastolic 58–87; PULSE 74–93; RESP 16–18; TEMP 36.5–37.1; O2SAT 94–99
[2024-04-28] MEDS: Ampicillin/Sulbactam 3 GM in 0.9% Normal Saline (100mL MB+) 100 ML IV ×4 (05:43→23:57)
[2024-04-28] MEDS: proCHLORPERazine 10 MG/2 ML Vial 5 MG IV (05:46)
[2024-04-28] MEDS: Nystatin Powder 15gm Bottle 1 APPLIC TOPICAL ×3 (05:48→21:55)
[2024-04-28] MEDS: Gabapentin 300 MG Capsule PO ×3 (06:25→21:55)
[2024-04-28] MEDS: tiZANidine HCl 2 MG Tablet 4 MG PO ×3 (06:25→21:55)
[2024-04-28] MEDS: Acetaminophen 500 MG Tablet 1000 MG PO ×3 (06:25→21:55)
[2024-04-28] MEDS: Lactobacillis Acidophilus 1 CAP PO ×2 (06:39→21:54)
[2024-04-28 07:11] LABS: Absolute Lymphocyte Count 1.78 X10^3/uL (0.83-4.51); Absolute Neutrophil Count 5.6 X10^3/uL (2.0-7.7); Basophil# 0.05 X10^3/uL; Basophil% 0.6 % (0-1); Eosinophil# 0.11 X10^3/uL; Eosinophils% 1.4 % (0-5); Hematocrit 38.7 % (37-47); Hemoglobin 12.4 g/dL (12.0-15.0); Lymphocyte # 1.78 X10^3/ul (0.83-4.51); Lymphocyte % 22.1 % (19-41); Mean Corpuscular Hgb 26.5 pg (27.0-32.0); Mean Corpuscular Volume 82.7 fL (81-99); Mean Platelet Vol. 9.6 fl (6.2-12.0); Monocyte# 0.43 X10^3/uL; Monocyte% 5.3 % (0-10); NRBC Flagged by Analyzer 0 % (0-5); Neutrophil # 5.56 X10^3/uL (2.7-7.7); Neutrophil % 69.1 % (47-70); Platelet Count 273 K/mm3 (150-450); RBC Distribution Width CV 13.3 % (11.6-14.6); RBC Distribution Width SD 40.3 fl (35.1-43.9); Red Blood Count 4.68 M/mm3 (4.2-5.4); White Blood Count 8.1 K/mm3 (4.4-11.0)
[2024-04-28 07:45] LABS: Anion Gap 4 (5-15); BUN 15 mg/dL (7-18); Calcium,Total 8.2 mg/dL (8.5-10.1); Chloride 102 mmol/L (98-107); Creatinine, Serum 0.54 mg/dL (0.55-1.02); EST Glomerular Filtration Rate 127 mL/min (>60); Est Glom Filt Rate - Afr Amer 153 mL/min (>60); Estimated Creatinine Clearance 118.51 ml/min; Glucose 134 mg/dL (74-106); Potassium 4.4 mmol/L (3.5-5.1); Sodium Level 133 mmol/L (136-145)
[2024-04-28] MEDS: Insulin Lispro 100 UNIT/ML INSULN.PEN 10 UNIT SC ×3 (07:52→16:38)
[2024-04-28 08:11] LABS: Bedside Glucose 148 mg/dL (74-106)
[2024-04-28] MEDS: SACUBITRIL/VALSARTAN 24/26 MG TABLET 0.5 EACH PO ×2 (10:04→21:54)
[2024-04-28] MEDS: Carvedilol 6.25 MG Tablet PO ×2 (10:04→21:54)
[2024-04-28] MEDS: Fluconazole 100 MG Tablet 200 MG PO (10:04)
[2024-04-28] MEDS: Aspirin 81 MG TAB.CHEW PO (10:04)
[2024-04-28] MEDS: Clopidogrel Bisulfate 75 MG Tablet PO (10:05)
[2024-04-28] MEDS: Escitalopram Oxalate 10 MG Tablet PO (10:05)
[2024-04-28] MEDS: Menthol/Lanolin/Calamine/Znox 113 GM Tube 1 APPLIC TOPICAL ×2 (10:05→21:56)
[2024-04-28] MEDS: Enoxaparin 40 MG/0.4 ML Syringe SC (10:05)
[2024-04-28] MEDS: Pantoprazole Sodium 40 MG Tablet PO (10:05)
[2024-04-28] MEDS: Mupirocin Ointment 22gm Tube 1 APPLIC TOPICAL (10:06)
[2024-04-28] MEDS: Insulin Glargine-YFGN 100 UNIT/ML Pen 45 UNIT SC (10:06)
[2024-04-28 12:01] LABS: Bedside Glucose 147 mg/dL (74-106)
[2024-04-28] MEDS: Insulin Lispro 100 UNIT/ML INSULN.PEN SC ×2 (16:37→21:58)
[2024-04-28 16:59] LABS: Bedside Glucose 158 mg/dL (74-106)
[2024-04-28] MEDS: Atorvastatin Calcium 80 MG Tablet PO (21:55)
[2024-04-28] MEDS: Insulin Glargine-YFGN 100 UNIT/ML Pen 20 UNIT SC (21:56)
[2024-04-28 23:31] LABS: Bedside Glucose 171 mg/dL (74-106)
[2024-04-29] MEDS: Ondansetron 4 MG/2 ML Vial IV (00:01)
[2024-04-29] MEDS: oxyCODONE 5 MG Tablet PO ×2 (02:57→08:54)
[2024-04-29 03:00] VITALS: PULSE 94
[2024-04-29 06:27] VITALS: BP 137/75; PULSE 77; RESP 18; TEMP 37.1; O2SAT 97
[2024-04-29] MEDS: Ampicillin/Sulbactam 3 GM in 0.9% Normal Saline (100mL MB+) 100 ML IV (06:28)
[2024-04-29] MEDS: Acetaminophen 500 MG Tablet 1000 MG PO ×2 (06:29→13:34)
[2024-04-29] MEDS: Nystatin Powder 15gm Bottle 1 APPLIC TOPICAL ×2 (06:29→13:35)
[2024-04-29] MEDS: Lactobacillis Acidophilus 1 CAP PO (06:29)
[2024-04-29] MEDS: tiZANidine HCl 2 MG Tablet 4 MG PO ×2 (06:31→13:34)
[2024-04-29] MEDS: Gabapentin 300 MG Capsule PO ×2 (06:31→13:34)
[2024-04-29 06:36] LABS: Absolute Lymphocyte Count 1.93 X10^3/uL (0.83-4.51); Absolute Neutrophil Count 7.8 X10^3/uL (2.0-7.7); Basophil# 0.05 X10^3/uL; Basophil% 0.5 % (0-1); Eosinophil# 0.08 X10^3/uL; Eosinophils% 0.8 % (0-5); Hematocrit 34.3 % (37-47); Hemoglobin 11.2 g/dL (12.0-15.0); Lymphocyte # 1.93 X10^3/ul (0.83-4.51); Lymphocyte % 18.4 % (19-41); Mean Corp Hgb Conc 32.7 g/dL (32-36); Mean Corpuscular Hgb 27.2 pg (27.0-32.0); Mean Corpuscular Volume 83.3 fL (81-99); Mean Platelet Vol. 9.6 fl (6.2-12.0); Monocyte% 4.8 % (0-10); NRBC Flagged by Analyzer 0 % (0-5); Neutrophil # 7.82 X10^3/uL (2.7-7.7); Neutrophil % 74.4 % (47-70); Platelet Count 312 K/mm3 (150-450); RBC Distribution Width CV 13.6 % (11.6-14.6); Red Blood Count 4.12 M/mm3 (4.2-5.4); White Blood Count 10.5 K/mm3 (4.4-11.0)
[2024-04-29 07:06] LABS: Anion Gap 4 (5-15); BUN 22 mg/dL (7-18); BUN/Creat Ratio 31.5 RATIO (10-20); Calcium,Total 8.1 mg/dL (8.5-10.1); Chloride 104 mmol/L (98-107); EST Glomerular Filtration Rate 94 mL/min (>60); Est Glom Filt Rate - Afr Amer 113 mL/min (>60); Estimated Creatinine Clearance 91.42 ml/min; Glucose 231 mg/dL (74-106); Potassium 4.7 mmol/L (3.5-5.1); Sodium Level 134 mmol/L (136-145)
[2024-04-29] MEDS: Enoxaparin 40 MG/0.4 ML Syringe SC (08:52)
[2024-04-29] MEDS: Pantoprazole Sodium 40 MG Tablet PO (08:52)
[2024-04-29] MEDS: Aspirin 81 MG TAB.CHEW PO (08:52)
[2024-04-29] MEDS: Carvedilol 6.25 MG Tablet PO (08:52)
[2024-04-29] MEDS: Clopidogrel Bisulfate 75 MG Tablet PO (08:53)
[2024-04-29] MEDS: Escitalopram Oxalate 10 MG Tablet PO (08:53)
[2024-04-29] MEDS: Senna/Docusate Sodium 1 Tablet 2 TABLET PO (08:53)
[2024-04-29] MEDS: Menthol/Lanolin/Calamine/Znox 113 GM Tube 1 APPLIC TOPICAL (08:55)
[2024-04-29] MEDS: Insulin Lispro 100 UNIT/ML INSULN.PEN 10 UNIT SC ×2 (08:56→11:33)
[2024-04-29] MEDS: Insulin Lispro 100 UNIT/ML INSULN.PEN SC ×2 (08:56→11:32)
[2024-04-29] MEDS: SACUBITRIL/VALSARTAN 24/26 MG TABLET 0.5 EACH PO (08:56)
[2024-04-29] MEDS: Fluconazole 100 MG Tablet 200 MG PO (08:56)
[2024-04-29] MEDS: Insulin Glargine-YFGN 100 UNIT/ML Pen 45 UNIT SC (08:57)
[2024-04-29 11:57] LABS: Bedside Glucose 277 mg/dL (74-106)
[2024-04-29 13:31] VITALS: BP 121/70; PULSE 89; RESP 16; TEMP 36.8; O2SAT 97
== END 2024-04-29 14:00 | disposition skilled nursing facility (03) | DRG 249 ==
LOC: ED 15:42 → MS3 04-26 07:10
PROVIDERS: Internal Medicine; Admitting Provider Internal Medicine; Emergency Provider Emergency Medicine; Visit Provider Student in an Organized Health Care Education/Training Program
DX: K52.9 Noninfective gastroenteritis and colitis, unspecified (principal); E87.20 Acidosis, unspecified; E87.1 Hypo-osmolality and hyponatremia; E11.40 Type 2 diabetes mellitus with diabetic neuropathy, unspecified; D72.829 Elevated white blood cell count, unspecified; B37.2 Candidiasis of skin and nail; I11.0 Hypertensive heart disease with heart failure; K76.89 Other specified diseases of liver; I34.0 Nonrheumatic mitral (valve) insufficiency; E86.0 Dehydration; Z79.4 Long term (current) use of insulin; E11.65 Type 2 diabetes mellitus with hyperglycemia; F17.210 Nicotine dependence, cigarettes, uncomplicated; E78.5 Hyperlipidemia, unspecified; I25.10 Atherosclerotic heart disease of native coronary artery without angina pectoris; E11.51 Type 2 diabetes mellitus with diabetic peripheral angiopathy without gangrene; I25.5 Ischemic cardiomyopathy; I50.22 Chronic systolic (congestive) heart failure; G89.29 Other chronic pain; R53.81 Other malaise; Z79.02 Long term (current) use of antithrombotics/antiplatelets; Z79.82 Long term (current) use of aspirin; M84.48XD Pathological fracture, other site, subsequent encounter for fracture with routine healing; N61.0 Mastitis without abscess
CPT/HCPCS: 36415; 74177; 80048; 80053; 82962; 83605; 83690; 83735; 84100; 85025; 87640; 87641; 94668; 97110; 97162; 97166; 97530; 97535; 97802; 97803; 99285; 99406; J7030; J7120; Q9967; A4216; J0295; J0744; J2405

== ENCOUNTER 2024-06-29 13:33 | Inpatient (IN) | payer MEDICAID, SELFPAY ==
[2024-06-29 13:36] VITALS: BP 158/96; PULSE 108; RESP 18; TEMP 37.2; O2SAT 99; BMI 28.1
--- NOTE | 2024-06-29 15:32 | EDS_ITS ---
HPI History of Present Illness Chief Complaint: Nausea/Vomiting [facility] Medical History PTSD (post-traumatic stress disorder) Closed compression fracture of L3 vertebra Hypokalemia Colitis BiPAP (biphasic positive airway pressure) dependence Coronary artery disease L5 vertebral fracture On home oxygen therapy Rheumatoid arthritis Sleep apnea Smoker DVT (deep venous thrombosis) Seizures Amputation toe Psychiatric disorder Ischemic cardiomyopathy Diabetes type 2, uncontrolled Essential hypertension Substance abuse Alcohol abuse Depression Osteoporosis GERD (gastroesophageal reflux disease) Pulmonary embolism Myocardial infarct Pericardial effusion Hypoxemia Acute dyspnea Aftercare following surgery of the circulatory system Hx of fracture of humerus Toe amputee Hyperlipidemia CHF (congestive heart failure) CAD (coronary artery disease), [place] coronary artery Home Medications ?Medication ?Instructions ?Recorded ?Last Taken ?Type aspirin 81 mg capsule 81 mg PO DAILY heart health 08/10/22 02/01/23 History clopidogrel 75 mg tablet 75 mg PO DAILY anti platelet #30 02/03/23 02/13/24 10:00 Rx tabs 75 mg pantoprazole 40 mg tablet,delayed 40 mg PO DAILY reflux 04/18/23 02/13/24 10:00 History release 40 mg sacubitril 24 mg-valsartan 26 mg 1 tab PO BID 30 days #60 tabs 05/07/23 02/13/24 22:00 Rx tablet (Entresto) 1 TAB atorvastatin 80 mg tablet 80 mg PO QHS cholesterol 12/29/23 Unknown History gabapentin 300 mg capsule 300 mg PO TID 12/29/23 02/13/24 08:00 History 300 mg insulin glargine 100 unit/mL (3 40 unit subcut DAILY dm 12/29/23 02/13/24 07:00 History mL) subcutaneous pen (Lantus 40 units Solostar U-100 Insulin) insulin lispro 100 unit/mL 1 sliding scale dose subcut TIDCM 12/29/23 Unknown History subcutaneous half-unit pen DIC 2%/RINKU 6%/LIDOC 2% IN 1 - 2 pump subdermal Q6H PRN FOR 02/14/24 Unknown History saltsable FEET cholecalciferol (vitamin D3) 1,250 1,250 mcg PO WE 02/14/24 Unknown History mcg (50,000 unit) tablet spironolactone 25 mg tablet 25 mg PO DAILY water pill 30 days 02/17/24 02/13/24 10:00 Rx #0 tabs 12.5 mg carvedilol 3.125 mg tablet 6.25 mg (2 x 3.125 mg) PO BID 02/19/24 Unknown Rx blood pressure 30 days #0 tabs ergocalciferol (vitamin D2) 1,250 1,250 mcg PO We@1000 #0 caps 02/19/24 Unknown Rx mcg (50,000 unit) capsule (Vitamin D2) insulin glargine 100 unit/mL (3 20 unit (0.2 mL) subcut QPM 30 02/19/24 02/13/24 22:00 Rx mL) subcutaneous pen (Lantus days #0 mL 24 units Solostar U-100 Insulin) escitalopram oxalate 20 mg tablet 20 mg PO DAILY depression 06/29/24 Unknown History furosemide 20 mg tablet 20 mg PO DAILY water pill 06/29/24 Unknown History gabapentin 400 mg capsule mg 3XD 06/29/24 Unknown History midodrine 2.5 mg tablet mg 06/29/24 Unknown History ondansetron HCl 4 mg tablet 4 mg PO Q8H nausea 06/29/24 Unknown History polyethylene glycol 3350 17 17 g PO BID PRN constipation 06/29/24 Unknown History gram/dose oral powder (Miralax) sennosides 8.6 mg-docusate sodium 2 tab PO BID PRN constipation 06/29/24 Unknown History 50 mg tablet (Stimulant Laxative Plus) tizanidine 4 mg tablet 4 mg PO 3XD spasm 06/29/24 Unknown History Allergy/AdvReac Type Severity Reaction Status Date / Time latex Allergy Hives Verified 06/29/24 13:35 Family History Mother Thyroid disorder Diabetes Hypertension Grandmother Diabetes Uncle Diabetes Aunt Diabetes Other Heart disease Surgical History History of cholecystectomy History of appendectomy History of cholecystectomy Social History household members: spouse and children housing: house Smoking Status: Current every day smoker tobacco type: cigarettes alcohol intake: never substance use type: marijuana what type of physical activity do you participate in: none do you feel safe at home: Yes EXAM Physical Exam Const Vital Signs: 06/29/24 13:36 06/29/24 16:28 06/29/24 18:00 Temperature 98.9 F Temperature Source Oral Pulse Rate 108 H 101 H Respiratory Rate 18 Blood Pressure 158/96 H 161/95 H 173/81 H Blood Pressure Mean 116 117 111 Pulse Ox 99 Oxygen Delivery Method Room Air 06/29/24 19:25 Temperature 98.1 F Temperature Source Oral Pulse Rate 95 Respiratory Rate 16 Blood Pressure 159/89 H Blood Pressure Mean 112 Pulse Ox 96 Oxygen Delivery Method Room Air [facility] Narrative Medical decision making narrative: HISTORY OF PRESENT ILLNESS: 53-year-old female presents with 3 days of nausea vomiting diarrhea. She states she is diffuse abdominal pain. Feels like crap. Notes watery diarrhea. She cannot tell me how many episodes of diarrhea she has per day. Last BM was just prior to arrival. No new foods, recent travel or antibiotics. No sick contacts. No fevers. She denies dysuria, frequency or urgency. Upon further questioning patient also endorses some chest pain and shortness of breath that occurs with vomiting. The patient denies recent surgery in the last 4 weeks or immobilization in the last 3 days, denies previous diagnosis of DVT or PE, hemoptysis, unilateral leg swelling or malignancy with treatment the last 6 months or palliative. No estrogen use noted. Patient denies sudden onset of pain, no tearing sensation, no migratory symptoms, no new numbness, weakness or loss of sensation. Patient denies family history or personal history of Connective tissue disorders (Marfan's Syndrome, Maia Danlos etc) REVIEW OF SYSTEMS: Pertinent positives: Abdominal pain, nausea vomiting, diarrhea Pertinent negatives: Fever. PHYSICAL EXAM: Nursing triage notes reviewed, Vital signs reviewed Constitutional: please see mdm HENT: MMM Eyes: Pupils equal round and reactive to light, Extraocular muscles intact Neck: No stridor, no JVD, full neck ROM Lungs: Clear to auscultation, No wheezing or rales. No increased work of breathing, no conversational dyspnea, no accessory muscle use, no nasal flaring. No respiratory distress noted Heart: Regular rate and rhythm, No murmurs, No rubs and No gallops, 2+ distal pulses (radial, femoral, posterior tibial) in all extremities Abdomen: Soft, diffuse TTP but no rigidity, rebound or guarding, no obvious peritoneal signs, no palpable pulsatile abdominal masses, no auscultated abdominal bruit : No CVAT Extremities: No edema Neuro: No new focal neurological deficits, cranial nerves II through XII intact, 5/5 strength in all present extremities. Intact sensation to light touch in all present extremities, 2+ reflexes bilateral patella tendons. Skin: No rash or lesions noted MEDICAL DECISION MAKING: Chief Complaint: Abdominal pain, nausea vomiting diarrhea External records reviewed: Reviewed ED visit from January 2024 for similar complaints. Reviewed prior imaging studies: Reviewed CT scan abdomen pelvis from April 2024 ordered showed findings suggestive of colitis of the ascending colon Factors affecting care: GERD, colitis type 2 diabetes, hypertension, status post appendectomy, cholecystectomy Social determinants of health: History of psychiatric disorder History obtained from others: none Consults: Hospitalist (Dr. Posadas) MDM Narrative: Patient was initially tachycardic rate of 108, otherwise hemodynamically stable afebrile and nontoxic-appearing. Abdominal exam with diffuse TTP. I considered the following differential diagnosis: Viral gastroenteritis, colitis, obstruction, perforation, dehydration, acute kidney injury, UTI, ACS, arrhythmia, anemia electrolyte disturbance, pneumothorax, PE, aortic dissection I obtained a broad lab and imaging workup to further elucidate etiology of the patient's complaints. I initially treated the patient with 4 mg IV Zofran, 4 mg IV morphine and 1 L normal saline. ALL IMAGES (IF OBTAINED) HAVE BEEN PERSONALLY REVIEWED AND INTERPRETED BY MYSELF. CBC without leukocytosis, no anemia or thrombocytopenia BMP with hyponatremia, no severe electrolyte maladies, no sign of metabolic acidosis or endorgan hypoperfusion, no acute kidney injury LFTs show no evidence of hepatobiliary pathology. Lipase is wnl indicating no pancreatic inflammation. Urine negative Urinalysis consistent with UTI CT scan of the abdomen pelvis showed no evidence of perforation obstruction but shows colitis as well as subacute lumbar spine injuries. I have personally reviewed the patient's chest x-ray. Chest x-ray is unremarkable for pulmonary edema, pneumothorax, pneumonia or focal car diopulmonary abnormality. High-sensitivity troponin is negative, no evidence of myocardial ischemia EKG with sinus tachycardia rate of 101, left ax deviation, prolonged QT interval at 516, no STEMI Upon re-evaluation patient still noted nausea and severe abdominal pain. Notes she feels as if she cannot tolerate anything by mouth. Given signs of UTI, colitis and need for antibiotic therapy I did not feel safe with the patient being discharged home. She cannot tolerate antibiotics by mouth and as such would fail outpatient management. Gave IV Zosyn and another dose of nausea medicine here in the ED. Plan to admit to medicine for IV antimicrobial therapy. Stool panel was ordered to further assess signs of invasive bacterial species. Discussed with Dr. Posadas. The patient and/or family, caregivers express understanding. The patient and/or family, caregivers agrees with the plan. Shared decision making: I will have a discussion with the patient and or visitors regarding risk/be nefits of further testing or admission. They will be made aware of of the risk/benefits inherent in this decision they will be given the opportunity to voice understanding. Total critical care time today provided was at least 0 minutes. This excludes separately billable procedures. Critical care time (if documented) is secondary to the patient having high probability of clinically significant/life threatening deterioration in the patient's condition which required my urgent intervention. Impression: 1. Abdominal pain 2. Colitis 3. UTI 4. Intractable nausea and vomiting Dispo: Admit This note was generated with [employer] dictation software. It may contain incorrect words, spelling, and punctuation that were not noted in review of the chart prior to signing. Lab Data Labs: Laboratory Results - last 24 hr 06/29/24 06/29/24 16:24 17:49 WBC 6.3 RBC 4.52 Hgb 12.8 Hct 36.4 L MCV 80.5 L MCH 28.3 MCHC 35.2 RDW Std Deviation 42.1 RDW Coeff of [place] 14.3 Plt Count 207 MPV 9.4 Immature Gran % (Auto) 0.300 Neut % (Auto) 76.2 H Lymph % (Auto) 16.6 L [place] % (Auto) 6.2 Eos % (Auto) 0.5 Baso % (Auto) 0.2 Absolute Neuts (auto) 4.8 Absolute Lymphs (auto) 1.05 Nucleated RBC % 0 Sodium 131 L Potassium 3.6 Chloride 98 Carbon Dioxide 25.0 Anion Gap 9 BUN 25 H Creatinine 0.91 Estim Creat Clear Calc 79.48 Est GFR (MDRD) Af Amer 84 Est GFR (MDRD) Non-Af 69 BUN/Creatinine Ratio 27.6 H Glucose 363 H Calcium 9.6 Total Bilirubin 0.80 AST 34 ALT 26 Alkaline Phosphatase 113 Troponin I High Sens 28 Total Protein 7.7 Albumin 3.3 Globulin 4.4 H Albumin/Globulin Ratio 0.8 L Lipase 23 Serum , Qual NEGATIVE Urine Color Yellow Urine Clarity Cloudy Urine pH 6.0 Ur Specific [place] 1.015 Urine Protein 100 H Urine Glucose (UA) 1000 H Urine Ketones Negative Urine Occult Blood 50 H Urine Nitrite Positive H Urine Bilirubin Negative Urine Urobilinogen Normal Ur Leukocyte Esterase 500 H Urine RBC 0-5 SEEN Urine WBC 10-25 SEEN Ur Squamous Epith Cells 0-5 SEEN Urine Bacteria 3+ Urine Mucus 1+ Radiography Diagnostic Testing: Clinical Impression(s) from Imaging Studies Abdomen/Pelvis CT 06/29/24 15:45 IMPRESSION: Findings consistent with colitis of the ascending and proximal transverse colon. Small pericardial effusion. Possible esophagitis or chronic GERD. Recommend endoscopic correlation to exclude neoplasia. Acute to subacute compression fractures of L3 and L5. Correlate to exclude UTI. Electronically Signed: Rhett Blackwood MD at 18:33 EST , Chest X-Ray 06/29/24 16:40 IMPRESSION: No radiographic evidence of acute cardiopulmonary disease. Electronically Signed: Rhett Blackwood MD at 17:46 EST , Discharge Plan Disposition Disposition: Acute Care Hospital [facility] Discharge Date/Time: 06/29/24 20:50
--- NOTE | 2024-06-29 15:45 | CT_ITS ---
INDICATION: abdominal pain, acute, non-localized EXAMINATION: CT ABDOMEN AND PELVIS WITH CONTRAST - CT Abdomen And Pelvis W/ Contrast Injection TECHNIQUE: Helically acquired images were obtained of the abdomen and pelvis following IV contrast. A radiation dose optimization technique was used for this scan. IV Contrast dosage and agent: 100 cc [id number] Oral contrast: None. COMPARISON: 01/09/2015 FINDINGS: LOWER CHEST: Lung bases are clear. Small pericardial effusion. Circumferential thickening of the distal esophageal wall. LIVER: Stable 1.8 cm low-attenuation lesion right lobe. No concerning focal mass. GALLBLADDER AND BILIARY TREE: Cholecystectomy. No intra- or extrahepatic biliary ductal dilation. PANCREAS: No focal cystic or solid mass. SPLEEN: Normal size without focal cystic or solid mass. ADRENAL GLANDS: Stable small bilateral adrenal nodules. No further follow-up indicated. KIDNEYS AND URETERS: Bilateral enhancement, small left cortical cyst. No hydronephrosis. PERITONEUM: No ascites or free air. BOWEL: Prior appendectomy changes. No stomach or bowel distension. Colonic wall thickening involving the ascending and proximal transverse colon with mild adjacent inflammatory stranding. LYMPH NODES: No enlarged mesenteric or retroperitoneal lymph nodes. VESSELS: Aorta is non-dilated. URINARY BLADDER: Gas density in the bladder lumen. REPRODUCTIVE ORGANS: No pelvic masses. ABDOMINAL WALL: No discrete abdominal or pelvic wall hernia. BONES: Acute to subacute appearing compression fractures of L3 and L5, most severe deformity at L3 with minimal retropulsion of fragment. Right femoral fixator partially imaged. CT/Abdomen/Pelvis W IV Cont ONLY IMPRESSION: Findings consistent with colitis of the ascending and proximal transverse colon. Small pericardial effusion. Possible esophagitis or chronic GERD. Recommend endoscopic correlation to exclude neoplasia. Acute to subacute compression fractures of L3 and L5. Correlate to exclude UTI. Electronically Signed: Rhett Blackwood MD at 18:33 EST Reading Location ID and State: [facility] / [place] Tel , Service support ,
--- NOTE | 2024-06-29 15:46 | EKG12_ITS ---
Test Reason : Blood Pressure : */* mmHG Vent. Rate : 101 BPM Atrial Rate : 101 BPM P-R Int : 164 ms QRS Dur : 130 ms QT Int : 398 ms P-R-T Axes : 50 -45 94 degrees QTcB Int : 516 ms Sinus tachycardia Left axis deviation Non-specific intra-ventricular conduction block Minimal voltage criteria for LVH, may be normal variant ( Brian product ) Cannot rule out Septal infarct (cited on or before 26-Aug-2021) Abnormal ECG Confirmed by KIERSTEN HERNANDEZ, RICHY ([id number]), film and video editor RIKY HOANG ([id number]) on 07/01/2024 6:21:35 AM Referred By: Confirmed By: RICHY BURCH MD
[2024-06-29] MEDS: Morphine 4 MG/ML Syringe IV (15:59)
[2024-06-29] MEDS: 0.9% Normal Saline (1000mL) 1,000 ML 999 ML IV (15:59)
[2024-06-29] MEDS: Ondansetron 4 MG/2 ML Vial IV (15:59)
[2024-06-29 16:28] VITALS: BP 161/95; PULSE 101
[2024-06-29 16:38] LABS: Absolute Lymphocyte Count 1.05 X10^3/uL (0.83-4.51); Absolute Neutrophil Count 4.8 X10^3/uL (2.0-7.7); Basophil# 0.01 X10^3/uL; Basophil% 0.2 % (0-1); Eosinophil# 0.03 X10^3/uL; Eosinophils% 0.5 % (0-5); Hematocrit 36.4 % (37-47); Hemoglobin 12.8 g/dL (12.0-15.0); Lymphocyte # 1.05 X10^3/ul (0.83-4.51); Lymphocyte % 16.6 % (19-41); Mean Corp Hgb Conc 35.2 g/dL (32-36); Mean Corpuscular Hgb 28.3 pg (27.0-32.0); Mean Corpuscular Volume 80.5 fL (81-99); Mean Platelet Vol. 9.4 fl (6.2-12.0); Monocyte# 0.39 X10^3/uL; Monocyte% 6.2 % (0-10); NRBC Flagged by Analyzer 0 % (0-5); Neutrophil # 4.83 X10^3/uL (2.7-7.7); Neutrophil % 76.2 % (47-70); Platelet Count 207 K/mm3 (150-450); RBC Distribution Width CV 14.3 % (11.6-14.6); RBC Distribution Width SD 42.1 fl (35.1-43.9); Red Blood Count 4.52 M/mm3 (4.2-5.4); White Blood Count 6.3 K/mm3 (4.4-11.0)
--- NOTE | 2024-06-29 16:40 | RAD_ITS ---
INDICATION: SOB EXAMINATION/TECHNIQUE: X-RAY - portable upright AP chest x-ray COMPARISON: 11/14/2023 FINDINGS: LINES/DEVICES: None. LUNGS: No consolidation, edema or effusion. No pneumothorax. MEDIASTINUM AND CARDIOVASCULAR STRUCTURES: Cardiac silhouette not enlarged. Central airways and mediastinal contour are unremarkable. BONES AND SOFT TISSUES: No acute changes. RAD/Chest 1 View (Portable) IMPRESSION: No radiographic evidence of acute cardiopulmonary disease. Electronically Signed: Rhett Blackwood MD at 17:46 EST ,
[2024-06-29 16:49] LABS: Internal QC Validated? YES +Cl - CLEAR BKGD; Pregnancy, Serum, hCG Quali. NEGATIVE Negative
[2024-06-29 16:56] LABS: ALB/GLOB Ratio 0.8 RATIO (0.9-2.4); AST(SGOT) 34 U/L (15-37); Alanine Aminotransfer ALT/SGPT 26 U/L (13-56); Albumin, Serum 3.3 g/dL (3.2-5.0); Alkaline Phosphatase 113 U/L (45-117); Anion Gap 9 (5-15); BUN 25 mg/dL (7-18); BUN/Creat Ratio 27.6 RATIO (10-20); Calcium,Total 9.6 mg/dL (8.5-10.1); Chloride 98 mmol/L (98-107); Creatinine, Serum 0.91 mg/dL (0.55-1.02); EST Glomerular Filtration Rate 69 mL/min (>60); Est Glom Filt Rate - Afr Amer 84 mL/min (>60); Estimated Creatinine Clearance 79.48 ml/min; Globulin 4.4 g/dL (2.2-4.2); Glucose 363 mg/dL (74-106); Lipase 23 U/L (13-75); Potassium 3.6 mmol/L (3.5-5.1); Protein, Total 7.7 g/dL (6.4-8.2); Sodium Level 131 mmol/L (136-145); Troponin-I HS (w/2H Reflex) 28 pg/mL (3.0-54.0)
[2024-06-29 17:56] LABS: Color, Urine Yellow (Yellow); Glucose, Dipstick 1000 mg/dl (Normal); Ketone-Dipstick Negative (Negative); Leukocyte Esterase-Dipstick 500 /ul (Negative); Nitrite-Dipstick Positive (Negative); Occult Blood-Urine 50 /ul (Negative); Protein-Dipstick 100 mg/dl (Negative); Specific Gravity, Urine 1.015 (1.002-1.030); Urine Bilirubin Dipstick Negative (Negative); Urine Clarity Cloudy (Clear); Urine Urobilinogen Normal (Normal)
[2024-06-29 18:00] VITALS: BP 173/81
[2024-06-29 18:05] LABS: Bacteria 3+ /hpf (None Seen); Mucous, Urine 1+ /hpf (<or=2+); Red Blood Cells-Urine 0-5 SEEN /hpf (0-5); Squamous Epithelial Cells - UA 0-5 SEEN /hpf (5-10); White Blood Cells 10-25 SEEN /hpf (0-5)
[2024-06-29 18:34] LABS: Reflex Troponin-HS? (from REC) Y
[2024-06-29] MEDS: Metoclopramide 10 MG/2 ML Vial 5 MG IV (19:21)
[2024-06-29] MEDS: Piperacil/Tazobactam 3.375 GM in 0.9% Normal Saline (50mL MB+) 50 ML IV (19:21)
[2024-06-29 19:25] VITALS: BP 159/89; PULSE 95; RESP 16; TEMP 36.7; O2SAT 96
[2024-06-29 20:02] VITALS: BP 159/89; PULSE 95; RESP 16; TEMP 36.7; O2SAT 96
--- NOTE | 2024-06-29 20:31 | HP.PCM.HOS_ITS ---
HPI - General General Date of Admission: 06/29/24 Date of Service: 06/29/24 Chief Complaint: n/v/d/abd pain HPI Narrative TRENTON DENTON, is a 53-year-old female history of diabetes, heart failure, GERD, depression, CAD presented [facility] ED 06/29/2024 with 3 days of nausea, vomiting, and diarrhea as well as some diffuse abdominal pain and feeling generally unwell. Unsure how many episodes of diarrhea she is having per day. Denied any dysuria, urinary frequency or urgency. In the ED patient vitally stable and lab workup fairly benign aside from UA suggestive of UTI. Patient had CT of the abdomen which showed signs of possible UTI as well as colitis. Given patient's continued nausea and abdominal pain with difficulty tolerating anything by mouth hospitalist contacted for admission. Patient evaluated bedside and reports the 3 days of nausea, vomiting, diarrhea and abdominal pain that started over a fairly short period of time and have remained similar over the past several days without worsening or improving. She reports the pain is more right upper quadrant to middle and will last a couple hours at a time and is sometimes only sharp, nausea does not seem to be associated with that specifically and will just come and go, same with the diarrhea, denies any blood in the stool or mucus in the stool. Does report some urinary frequency but not necessarily dysuria or suprapubic tenderness. No fevers or chills, denies any changes in her breathing, cough, chest pain or other acute complaints [facility] Medical History PTSD (post-traumatic stress disorder) Closed compression fracture of L3 vertebra Hypokalemia Colitis BiPAP (biphasic positive airway pressure) dependence Coronary artery disease L5 vertebral fracture On home oxygen therapy Rheumatoid arthritis Sleep apnea Smoker DVT (deep venous thrombosis) Seizures Amputation toe Psychiatric disorder Ischemic cardiomyopathy Diabetes type 2, uncontrolled Essential hypertension Substance abuse Alcohol abuse Depression Osteoporosis GERD (gastroesophageal reflux disease) Pulmonary embolism Myocardial infarct Pericardial effusion Hypoxemia Acute dyspnea Aftercare following surgery of the circulatory system Hx of fracture of humerus Toe amputee Hyperlipidemia CHF (congestive heart failure) CAD (coronary artery disease), [place] coronary artery Home Medications ?Medication ?Instructions ?Recorded ?Last Taken ?Type aspirin 81 mg capsule 81 mg PO DAILY heart health 08/10/22 02/01/23 History clopidogrel 75 mg tablet 75 mg PO DAILY anti platelet #30 02/03/23 02/13/24 10:00 Rx tabs 75 mg pantoprazole 40 mg tablet,delayed 40 mg PO DAILY reflux 04/18/23 02/13/24 10:00 History release 40 mg sacubitril 24 mg-valsartan 26 mg 1 tab PO BID 30 days #60 tabs 05/07/23 02/13/24 22:00 Rx tablet (Entresto) 1 TAB atorvastatin 80 mg tablet 80 mg PO QHS cholesterol 12/29/23 Unknown History gabapentin 300 mg capsule 300 mg PO TID 12/29/23 02/13/24 08:00 History 300 mg insulin glargine 100 unit/mL (3 40 unit subcut DAILY 12/29/23 02/13/24 07:00 History mL) subcutaneous pen (Lantus 40 units Solostar U-100 Insulin) insulin lispro 100 unit/mL 1 sliding scale dose subcut TIDCM 12/29/23 Unknown History subcutaneous half-unit pen DIC 2%/RINKU 6%/LIDOC 2% IN 1 - 2 pump subdermal Q6H PRN FOR 02/14/24 Unknown History saltsable FEET cholecalciferol (vitamin D3) 1,250 1,250 mcg PO WE 02/14/24 Unknown History mcg (50,000 unit) tablet spironolactone 25 mg tablet 25 mg PO DAILY 30 days #0 tabs 02/17/24 02/13/24 10:00 Rx 12.5 mg carvedilol 3.125 mg tablet 6.25 mg (2 x 3.125 mg) PO BID 02/19/24 Unknown Rx blood pressure 30 days #0 tabs ergocalciferol (vitamin D2) 1,250 1,250 mcg PO We@1000 #0 caps 02/19/24 Unknown Rx mcg (50,000 unit) capsule (Vitamin D2) insulin glargine 100 unit/mL (3 20 unit (0.2 mL) subcut QPM 30 02/19/24 02/13/24 22:00 Rx mL) subcutaneous pen (Lantus days #0 mL 24 units Solostar U-100 Insulin) escitalopram oxalate 20 mg tablet 20 mg PO DAILY 06/29/24 Unknown History furosemide 20 mg tablet 20 mg PO DAILY 06/29/24 Unknown History gabapentin 400 mg capsule mg 3XD 06/29/24 Unknown History midodrine 2.5 mg tablet mg 06/29/24 Unknown History ondansetron HCl 4 mg tablet 4 mg PO Q8H 06/29/24 Unknown History polyethylene glycol 3350 17 17 g PO BID PRN constipation 06/29/24 Unknown History gram/dose oral powder (Miralax) sennosides 8.6 mg-docusate sodium 2 tab PO BID PRN constipation 06/29/24 Unknown History 50 mg tablet (Stimulant Laxative Plus) tizanidine 4 mg tablet 4 mg PO 3XD 06/29/24 Unknown History Allergy/AdvReac Type Severity Reaction Status Date / Time latex Allergy Hives Verified 06/29/24 13:35 Family History Mother Thyroid disorder Diabetes Hypertension Grandmother Diabetes Uncle Diabetes Aunt Diabetes Other Heart disease Surgical History History of appendectomy History of cholecystectomy History of cholecystectomy Social History household members: spouse and children housing: house Smoking Status: Current every day smoker tobacco type: cigarettes alcohol intake: never substance use type: marijuana what type of physical activity do you participate in: none do you feel safe at home: Yes ROS ROS Narrative General: Denies fever/chills HENT: Denies headache, denies stuffy nose, denies sore throat EYES: Denies changes in vision Resp: Denies cough, denies any changes in her breathing Cardiac: Denies chest pain GI: Some abdominal pain intermittently in upper quadrants with intermittent nausea and diarrhea : Some increased urinary frequency Extremity: Denies swelling MSK: Feels somewhat generally weak Neuro: Denies any numbness/tingling Heme: Denies any bleeding or bruising Skin: Denies rashes Psychiatric: No complaints voiced Vital Signs Vital Signs Vital Signs: 06/29/24 13:36 06/29/24 16:28 06/29/24 18:00 Temperature 98.9 F Temperature Source Oral Pulse Rate 108 H 101 H Respiratory Rate 18 Blood Pressure 158/96 H 161/95 H 173/81 H Blood Pressure Mean 116 117 111 Pulse Ox 99 Oxygen Delivery Method Room Air 06/29/24 19:25 06/29/24 20:02 Temperature 98.1 F 98.1 F Temperature Source Oral Pulse Rate 95 95 Respiratory Rate 16 16 Blood Pressure 159/89 H 159/89 H Blood Pressure Mean 112 112 Pulse Ox 96 96 Oxygen Delivery Method Room Air Weight Weight: 81.647 kg Body Mass Index (BMI) 28.1 Physical Exam Narrative General: Laying in bed, appears uncomfortable but is awake and answers questions appropriately HEENT: Atraumatic, normocephalic Eyes: Anicteric, normal conjunctiva, extraocular movements grossly intact Neck: Supple Respiratory: Clear to auscultation bilaterally, normal respiratory effort Cardiovascular: Regular rate and rhythm GI: Soft,, nondistended, little bit of tenderness diffusely without localization and no rebound, guarding, or rigidity Extremities: No edema Musculoskeletal: Moving all extremities Neuro: No overt focal neurological deficits Skin: No rashes appreciated Psych: Cooperative Results Lab / Micro Data 06/29/24 16:24 06/29/24 16:24 Labs: Laboratory Results - last 24 hr 06/29/24 16:24: WBC 6.3, RBC 4.52, Hgb 12.8, Hct 36.4 L, MCV 80.5 L, MCH 28.3, MCHC 35.2, RDW Std Deviation 42.1, RDW Coeff of Spencer 14.3, Plt Count 207, MPV 9.4, Immature Gran % (Auto) 0.300, Neut % (Auto) 76.2 H, Lymph % (Auto) 16.6 L, [place] % (Auto) 6.2, Eos % (Auto) 0.5, Baso % (Auto) 0.2, Absolute Neuts (auto) 4.8, Absolute Lymphs (auto) 1.05, Nucleated RBC % 0, Sodium 131 L, Potassium 3.6, Chloride 98, Carbon Dioxide 25.0, Anion Gap 9, BUN 25 H, Creatinine 0.91, Estim Creat Clear Calc 79.48, Est GFR (MDRD) Af Amer 84, Est GFR (MDRD) Non-Af 69, BUN/Creatinine Ratio 27.6 H, Glucose 363 H, Calcium 9.6, Total Bilirubin 0.80, AST 34, ALT 26, Alkaline Phosphatase 113, Troponin I High Sens 28, Total Protein 7.7, Albumin 3.3, Globulin 4.4 H, Albumin/Globulin Ratio 0.8 L, Lipase 23, Serum , Qual NEGATIVE 06/29/24 17:49: Urine Color Yellow, Urine Clarity Cloudy, Urine pH 6.0, Ur Specific [place] 1.015, Urine Protein 100 H, Urine Glucose (UA) 1000 H, Urine Ketones Negative, Urine Occult Blood 50 H, Urine Nitrite Positive H, Urine Bilirubin Negative, Urine Urobilinogen Normal, Ur Leukocyte Esterase 500 H, Urine RBC 0-5 SEEN, Urine WBC 10-25 SEEN, Ur Squamous Epith Cells 0-5 SEEN, Urine Bacteria 3+, Urine Mucus 1+ Imaging Radiology Impression Abdomen/Pelvis CT 06/29/24 15:45 IMPRESSION: Findings consistent with colitis of the ascending and proximal transverse colon. Small pericardial effusion. Possible esophagitis or chronic GERD. Recommend endoscopic correlation to exclude neoplasia. Acute to subacute compression fractures of L3 and L5. Correlate to exclude UTI. Electronically Signed: Rhett Blackwood MD at 18:33 EST , Chest X-Ray 06/29/24 16:40 IMPRESSION: No radiographic evidence of acute cardiopulmonary disease. Electronically Signed: Rhett Blackwood MD at 17:46 EST , Assessment & Plan Assessment/Plan (1) Colitis: PLAN: Plan # Nausea/vomiting/diarrhea secondary to colitis -Gentle IV fluids given patient's combination systolic and diastolic heart failure -Will check stool studies -Antiemetics and supportive care -Light diet advance as tolerated # Urinary tract infection -UA suggestive of UTI -Imaging suggestive of emphysematous cystitis which would benefit from IV antibiotics, patient not having any significant suprapubic tenderness and is vitally stable -Will order urine culture and continue empiric antibiotics # Acute/subacute compression fractions of L3 and L5 -PT/ OT -Pain control -Patient not presently complaining of any back pain # Possible esophagitis or chronic GERD -Seen on CT abdomen -Will need outpatient endoscopy to exclude correlation -Continue home PPI #Type 2 diabetes mellitus -Glucose checks and sliding scale insulin -Will decrease home long-acting insulin to avoid hypoglycemia given patient's nausea and vomiting (and unclear home dosing), can uptitrate as tolerated #Hx CAD -continue home aspirin and Plavix #Hx chronic combined heart failure -Continue home Entresto, daily weights, I's and O's -Very cautious with hydration -Last echo 05/04/2023 with EF of 15% and stage III diastolic dysfunction #Depression/anxiety -Continue home medications #Tobacco use -Advise cessation -Nicotine replacement available if desired #DVT ppx: Lovenox subcu Brenda Posadas MD Charges/Coding Visit Charges Inpatient E&M: 90977 Init Hosp L2
[2024-06-29 21:06] VITALS: BMI 27.4
[2024-06-29 21:11] VITALS: BP 166/98; PULSE 102; RESP 18; TEMP 36.6; O2SAT 100
[2024-06-29] MEDS: 0.9% Normal Saline (1000mL) 1,000 ML 50 ML IV (21:15)
[2024-06-29] MEDS: Atorvastatin Calcium 80 MG Tablet PO (21:42)
[2024-06-29] MEDS: Insulin Lispro 100 UNIT/ML INSULN.PEN SC (21:42)
[2024-06-29] MEDS: SACUBITRIL/VALSARTAN 24/26 MG TABLET 1 EACH PO (21:42)
[2024-06-29] MEDS: Insulin Glargine-YFGN 100 UNIT/ML Pen 15 UNIT SC (21:42)
[2024-06-29] MEDS: Carvedilol 6.25 MG Tablet PO (21:42)
[2024-06-29] MEDS: Gabapentin 300 MG Capsule PO (21:43)
[2024-06-29 22:07] LABS: Bedside Glucose 278 mg/dL (74-106)
[2024-06-30] VITALS (11 sets, daily range): BP systolic 72–148; BP diastolic 50–85; PULSE 72–89; RESP 14–16; TEMP 36.1–36.7; O2SAT 97–100; BMI 27.5
[2024-06-30] MEDS: Gabapentin 300 MG Capsule PO ×3 (05:23→20:55)
[2024-06-30] MEDS: Piperacil/Tazobactam 3.375 GM in 0.9% Normal Saline (50mL MB+) 50 ML IV ×3 (05:25→20:55)
[2024-06-30] MEDS: Insulin Lispro 100 UNIT/ML INSULN.PEN SC ×3 (05:26→15:58)
[2024-06-30 05:50] LABS: Bedside Glucose 291 mg/dL (74-106)
[2024-06-30 07:17] LABS: Absolute Lymphocyte Count 1.35 X10^3/uL (0.83-4.51); Absolute Neutrophil Count 3.3 X10^3/uL (2.0-7.7); Basophil# 0.01 X10^3/uL; Basophil% 0.2 % (0-1); Eosinophil# 0.01 X10^3/uL; Eosinophils% 0.2 % (0-5); Hematocrit 36.7 % (37-47); Lymphocyte # 1.35 X10^3/ul (0.83-4.51); Lymphocyte % 26.4 % (19-41); Mean Corp Hgb Conc 32.7 g/dL (32-36); Mean Corpuscular Volume 82.5 fL (81-99); Mean Platelet Vol. 9.6 fl (6.2-12.0); Monocyte% 7.8 % (0-10); NRBC Flagged by Analyzer 0 % (0-5); Neutrophil # 3.32 X10^3/uL (2.7-7.7); Platelet Count 215 K/mm3 (150-450); RBC Distribution Width CV 14.5 % (11.6-14.6); RBC Distribution Width SD 43.2 fl (35.1-43.9); Red Blood Count 4.45 M/mm3 (4.2-5.4); White Blood Count 5.1 K/mm3 (4.4-11.0)
[2024-06-30 07:54] LABS: ALB/GLOB Ratio 0.7 RATIO (0.9-2.4); AST(SGOT) 32 U/L (15-37); Alanine Aminotransfer ALT/SGPT 25 U/L (13-56); Albumin, Serum 2.9 g/dL (3.2-5.0); Alkaline Phosphatase 96 U/L (45-117); Anion Gap 5 (5-15); BUN 22 mg/dL (7-18); Chloride 102 mmol/L (98-107); Creatinine, Serum 0.81 mg/dL (0.55-1.02); EST Glomerular Filtration Rate 78 mL/min (>60); Est Glom Filt Rate - Afr Amer 95 mL/min (>60); Estimated Creatinine Clearance 88.19 ml/min; Globulin 4.3 g/dL (2.2-4.2); Glucose 291 mg/dL (74-106); Magnesium 2.1 mg/dL (1.6-2.6); Potassium 3.2 mmol/L (3.5-5.1); Protein, Total 7.2 g/dL (6.4-8.2); Sodium Level 134 mmol/L (136-145)
[2024-06-30] MEDS: 0.9% Saline Lock 10 ML Syringe IV (08:51)
[2024-06-30] MEDS: Ondansetron 4 MG/2 ML Vial IV (08:51)
--- NOTE | 2024-06-30 10:13 | CASEMGMT ---
mailroom courier: Face to Face with pt for initial transition planning/care coordination assessment. RN FILIPPO introduced self and role at [facility], pt voices understanding and consents to assessment. Pt is A&O x4 and answers all questions appropriately at this time. Pt sitting at edge of bed in room. Care providers, pharmacy, and demographics verified/updated. Strata: 3 Admitting Dx: Colitis, UTI PCP: 3 Specialists: Denies Preferred Pharmacy: [facility] Insurance: [facility] Prescription Benefit: yes LNOK: Mom, Living Arrangements: Pt lives in an apartment with 1 step to enter. ADLs:Pt reports I with ADLs, Needs assistance with IADLs. Transportation: Pt states daughters boyfriend provides transportation when needed. DME: Raised Toilet seat, Hospital bed, cane, walker, rollator, glucometer and supplies. HHC/SNF: Previously at [facility] and [facility] Pt states no concerns with going home at time of dc. Pt states no further concerns/needs. CM to follow. Advised pt to ask CM if any further question/concerns/needs arise, voices understanding. Pt Goal: Home Plan: Home, follow therapy for recommendations. Jorge Meneses
[2024-06-30] MEDS: SACUBITRIL/VALSARTAN 24/26 MG TABLET 1 EACH PO ×2 (10:18→20:55)
[2024-06-30] MEDS: Carvedilol 6.25 MG Tablet PO ×2 (10:18→20:55)
[2024-06-30] MEDS: Menthol/Lanolin/Calamine/Znox 113 GM Tube 1 APPLIC TOPICAL ×2 (10:18→20:54)
[2024-06-30] MEDS: Pantoprazole Sodium 40 MG Tablet PO (10:18)
[2024-06-30] MEDS: Clopidogrel Bisulfate 75 MG Tablet PO (10:18)
[2024-06-30] MEDS: Escitalopram Oxalate 20 MG Tablet PO (10:18)
[2024-06-30] MEDS: Aspirin 81 MG TAB.CHEW PO (10:18)
[2024-06-30] MEDS: Enoxaparin 40 MG/0.4 ML Syringe SC (10:18)
[2024-06-30] MEDS: Insulin Glargine-YFGN 100 UNIT/ML Pen 30 UNIT SC (11:09)
[2024-06-30] MEDS: Potassium Chloride Oral Tablet 20 MEQ 40 MEQ PO (11:10)
[2024-06-30 11:29] LABS: Bedside Glucose 288 mg/dL (74-106)
[2024-06-30] MEDS: Acetaminophen 325 MG Tablet 650 MG PO (13:21)
[2024-06-30] MEDS: proCHLORPERazine 10 MG/2 ML Vial 5 MG IV ×2 (13:22→20:56)
[2024-06-30] MEDS: 0.9% Normal Saline (1000mL) 1,000 ML 999 ML IV (16:23)
[2024-06-30 16:45] LABS: Bedside Glucose 216 mg/dL (74-106)
[2024-06-30] MEDS: Midodrine HCl 5 MG Tablet 10 MG PO (17:00)
[2024-06-30] MEDS: Atorvastatin Calcium 80 MG Tablet PO (20:55)
[2024-06-30 21:21] LABS: Bedside Glucose 149 mg/dL (74-106)
--- NOTE | 2024-06-30 21:46 | PCM.PN.HOSP ---
Reason for Visit Reason for Visit: Nausea/vomiting/diarrhea/abdominal pain Subjective Subjective Patient is a 53-year-old white female who presented to emergency department [facility] on 06/29/2024 complaining of 3 days of nausea, vomiting, and diarrhea as well as diffuse abdominal pain and has been generally feeling unwell. She was unclear about how many episodes of diarrhea she was having per day. She denied any dysuria, urinary frequency or urgency on presentation. Upon presentation the emergency department her vital signs were stable and lab work was benign aside from a UA that was suggestive of urinary tract infection. CT of the abdomen pelvis was performed and showed possible UTI with inflammation noted in the bladder as well as colitis. Given her continued nausea and abdominal pain the patient was having difficulty taking anything by mouth so we were consulted for admission. She does indicate most of her pain is over the right upper quadrant. She does no longer have a gallbladder and her liver enzymes are unremarkable. No biliary duct dilation was noted on her CAT scan. She has had no diarrhea since admission she still complains of intermittent nausea and complains of back pain and abdominal pain. She states the back pain is chronic and the abdominal pain is intermittent. Per discussion with nursing she has not had no emesis and does at times seems to over embellish her symptoms. Objective Data Objective Data Vital Signs: Vital Signs Temp Pulse Resp BP Pulse Ox O2 Del Method 97.7 F L 89 16 133/76 H 100 Room Air 06/30/24 21:01 06/30/24 21:01 06/30/24 21:01 06/30/24 21:01 06/30/24 21:13 06/30/24 21:13 Oxygen Delivery Method Room Air Weight: 79.5 kg Body Mass Index (BMI) 27.5 Intake & Output: Intake and Output for Last 24 Hours 06/28/24 06/29/24 06/30/24 23:59 23:59 23:59 Intake Total 1266.67 / 1266.67 Balance 1266.67 / 1266.67 Lab / Micro Data 06/30/24 06:52 06/30/24 06:52 Labs: Laboratory Results - last 24 hr 06/29/24 21:16: POC Glucose 278 H 06/30/24 05:21: POC Glucose 291 H 06/30/24 06:52: WBC 5.1, RBC 4.45, Hgb 12.0, Hct 36.7 L, MCV 82.5, MCH 27.0, MCHC 32.7 D, RDW Std Deviation 43.2, RDW Coeff of Spencer 14.5, Plt Count 215, MPV 9.6, Immature Gran % (Auto) 0.400, Neut % (Auto) 65.0, Lymph % (Auto) 26.4, [place] % (Auto) 7.8, Eos % (Auto) 0.2, Baso % (Auto) 0.2, Absolute Neuts (auto) 3.3, Absolute Lymphs (auto) 1.35, Nucleated RBC % 0, Sodium 134 L, Potassium 3.2 L, Chloride 102, Carbon Dioxide 27.0, Anion Gap 5, BUN 22 H, Creatinine 0.81, Estim Creat Clear Calc 88.19, Est GFR (MDRD) Af Amer 95, Est GFR (MDRD) Non-Af 78, BUN/Creatinine Ratio 27.0 H, Glucose 291 H, Calcium 9.0, Magnesium 2.1, Total Bilirubin 0.90, AST 32, ALT 25, Alkaline Phosphatase 96, Total Protein 7.2, Albumin 2.9 L, Globulin 4.3 H, Albumin/Globulin Ratio 0.7 L 06/30/24 11:08: POC Glucose 288 H 06/30/24 15:57: POC Glucose 216 H 06/30/24 20:53: POC Glucose 149 H Micro: Microbiology 06/29/24 17:49 Urine, Clean Catch Urine Culture - Preliminary GNR lactose television station manager Physical Exam Const alert, oriented x3, no apparent distress and well nourished; Negative for average body habitus or healthy appearing Constitutional Narrative: Overweight, middle-aged, white female, sitting up in bed, appears much older than stated age, holding emesis bag but no emesis at all during my evaluation HEENT head/scalp atraumatic and moist oral mucous membranes HEENT Narrative: Edentulous, Mallampati 3, no thrush Resp normal respiratory effort, no retractions, no use of accessory muscles and clear to auscultation bilaterally Auscultation: Negative for rales, rhonchi or wheezes Cardio regular rate, regular rhythm, S1 normal heart sound, S2 normal heart sound, no murmurs, no rub, no gallops and no clicks GI normal to inspection, nondistended, normoactive bowel sounds and soft to palpation GI Narrative: Diffuse tenderness with even light palpation of the abdomen Extremity no clubbing, cyanosis or edema Extremity Narrative: Pedal pulses are 2+ Neuro oriented x3, moves all extremities and no focal motor deficits Psych Psych Narrative: Patient is anxious, eye contact is not great, patient complaining of pain but presentation not consistent with appearance Assessment & Plan Assessment/Plan (1) Dehydration: (2) Colitis: (3) Sepsis due to gram-negative UTI: (4) UTI (urinary tract infection): (5) Colitis: PLAN: Plan Nausea/vomiting/diarrhea secondary to colitis -Patient did receive gentle hydration initially -We did give 1 L IV fluids today due to some hypotension the patient also has history of heart failure with intermittent hypotension -Will continue clear liquid diet for now and advance as tolerated -Continue as needed antiemetics -Oral Haldol added as Zofran was not effective -CT of the abdomen pelvis does show findings consistent with colitis of the ascending and proximal transverse colon -With intermittent hypotension highly suspect that may be ischemic -Hemoglobin is stable -Patient without any bowel movement so suspect we will be able to discontinue C. difficile -Continue Zosyn -Will refer to outpatient GI for EGD and colonoscopy Acute/subacute compression fractures of L3 and L5 -Add lidocaine patch -K-pad available -Transition Tylenol to 1000 mg every 8 hours scheduled -As needed oxycodone added -If ongoing issues with pain may need pain management referral as an outpatient Gram-negative UTI -GNR-lactose television station manager ordered -Continue Zosyn until identified -Day 1 of 7 for antibiotics Possible esophagitis/chronic GERD -Noted on CT of the abdomen pelvis -Continue home PPI -Outpatient referral to GI at the time of discharge for EGD and colonoscopy DM-2 -Continue SSI -Increase basal insulin to 30 units at at bedtime with home dosing being 40 units at at bedtime -Blood sugars are fairly elevated despite decreased p.o. intake -Continue diet as ordered advance as able CAD/chronic combined heart failure/chronic hypotension/hyperlipidemia -Hold Entresto due to hypotension -Give midodrine 10 mg x 1 dose -Hold home Aldactone -Continue home beta-linda with hold parameters -Continue home aspirin and Plavix Depression -Continue home escitalopram Tobacco abuse -Recommend cessation -Nicotine patch if patient desires DVT prophylaxis -Continue subcu enoxaparin CODE STATUS Full code as ordered
[2024-06-30] MEDS: Acetaminophen 500 MG Tablet 1000 MG PO (22:21)
[2024-07-01 04:45] VITALS: BP 153/84; PULSE 81; RESP 16; TEMP 36.4; O2SAT 98
[2024-07-01 04:47] VITALS: BMI 28.0
[2024-07-01] MEDS: proCHLORPERazine 10 MG/2 ML Vial 5 MG IV ×4 (04:49→20:04)
[2024-07-01] MEDS: Gabapentin 300 MG Capsule PO ×2 (04:53→22:28)
[2024-07-01] MEDS: Piperacil/Tazobactam 3.375 GM in 0.9% Normal Saline (50mL MB+) 50 ML IV (04:53)
[2024-07-01] MEDS: Acetaminophen 500 MG Tablet 1000 MG PO ×3 (04:54→22:28)
[2024-07-01 07:11] LABS: Bedside Glucose 117 mg/dL (74-106)
[2024-07-01 08:09] LABS: Absolute Neutrophil Count 3.1 X10^3/uL (2.0-7.7); Basophil# 0.02 X10^3/uL; Basophil% 0.4 % (0-1); Eosinophil# 0.01 X10^3/uL; Eosinophils% 0.2 % (0-5); Hematocrit 33.5 % (37-47); Hemoglobin 10.7 g/dL (12.0-15.0); Lymphocyte % 28.5 % (19-41); Mean Corp Hgb Conc 31.9 g/dL (32-36); Mean Corpuscular Hgb 26.7 pg (27.0-32.0); Mean Corpuscular Volume 83.5 fL (81-99); Mean Platelet Vol. 9.6 fl (6.2-12.0); Monocyte# 0.33 X10^3/uL; Monocyte% 6.7 % (0-10); NRBC Flagged by Analyzer 0 % (0-5); Neutrophil # 3.14 X10^3/uL (2.7-7.7); Platelet Count 184 K/mm3 (150-450); RBC Distribution Width CV 14.6 % (11.6-14.6); RBC Distribution Width SD 44.7 fl (35.1-43.9); Red Blood Count 4.01 M/mm3 (4.2-5.4); White Blood Count 4.9 K/mm3 (4.4-11.0)
[2024-07-01 09:00] VITALS: BP 150/82; PULSE 84; RESP 16; TEMP 36.6; O2SAT 96
[2024-07-01] MEDS: Lidocaine 5% Patch 1 PATCH TOPICAL (09:16)
[2024-07-01] MEDS: Enoxaparin 40 MG/0.4 ML Syringe SC (09:17)
[2024-07-01 09:22] LABS: ALB/GLOB Ratio 0.8 RATIO (0.9-2.4); AST(SGOT) 24 U/L (15-37); Alanine Aminotransfer ALT/SGPT 22 U/L (13-56); Albumin, Serum 2.7 g/dL (3.2-5.0); Alkaline Phosphatase 80 U/L (45-117); Anion Gap 9 (5-15); BUN 27 mg/dL (7-18); BUN/Creat Ratio 22.7 RATIO (10-20); Calcium,Total 8.5 mg/dL (8.5-10.1); Chloride 107 mmol/L (98-107); Creatinine, Serum 1.19 mg/dL (0.55-1.02); EST Glomerular Filtration Rate 51 mL/min (>60); Est Glom Filt Rate - Afr Amer 61 mL/min (>60); Estimated Creatinine Clearance 60.52 ml/min; Globulin 3.5 g/dL (2.2-4.2); Glucose 159 mg/dL (74-106); Phosphorus 2.4 mg/dL (2.5-4.9); Potassium 3.4 mmol/L (3.5-5.1); Protein, Total 6.2 g/dL (6.4-8.2); Sodium Level 136 mmol/L (136-145)
[2024-07-01] MEDS: Meropenem 1 GM in 0.9% Normal Saline (100mL MB+) 100 ML IV ×2 (10:30→22:24)
[2024-07-01] MEDS: Insulin Lispro 100 UNIT/ML INSULN.PEN SC ×3 (11:03→22:25)
[2024-07-01] MEDS: 0.9% Saline Lock 10 ML Syringe IV ×5 (11:03→20:06)
[2024-07-01] MEDS: Potassium Phosphate 21 MM in 0.9% Normal Saline (250mL Bag) 250 ML 84 MM IV (11:25)
[2024-07-01 11:31] LABS: Bedside Glucose 195 mg/dL (74-106)
[2024-07-01 11:35] VITALS: BP 121/62; PULSE 86; RESP 18; TEMP 35.9; O2SAT 94
[2024-07-01] MEDS: Pantoprazole Sodium 40 MG Tablet PO (11:46)
[2024-07-01] MEDS: Carvedilol 6.25 MG Tablet PO ×2 (11:46→22:23)
[2024-07-01] MEDS: Aspirin 81 MG TAB.CHEW PO (11:46)
[2024-07-01] MEDS: Escitalopram Oxalate 20 MG Tablet PO (11:46)
[2024-07-01] MEDS: Clopidogrel Bisulfate 75 MG Tablet PO (11:47)
[2024-07-01] MEDS: Menthol/Lanolin/Calamine/Znox 113 GM Tube 1 APPLIC TOPICAL ×2 (11:49→22:22)
--- NOTE | 2024-07-01 15:09 | PN.HOSP_ITS ---
Reason for Visit Reason for Visit: Nausea/vomiting/diarrhea/abdominal pain Subjective Subjective Patient sleeping upon my arrival but awakens easily. Still complaining of abdominal pain but appears to be comfortable at this time. Asked nursing for diet to be advanced but then my evaluation stated she was still having nausea. Per nursing she has had no vomiting and did extremely well with clear liquids. Urine is positive for ESBL producing E. coli so I did discuss with patient the need for infectious disease involvement and transition of antibiotics. Patient voiced understanding. Objective Data Objective Data Vital Signs: Vital Signs Temp Pulse Resp BP Pulse Ox O2 Del Method 96.7 F L 86 18 121/62 H 94 Room Air 07/01/24 11:35 07/01/24 11:35 07/01/24 11:35 07/01/24 11:35 07/01/24 11:35 07/01/24 11:35 Oxygen Delivery Method Room Air Weight: 80.9 kg Body Mass Index (BMI) 28.0 Intake & Output: Intake and Output for Last 24 Hours 06/29/24 06/30/24 07/01/24 23:59 23:59 23:59 Intake Total 1266.67 / 1266.67 950 / 950 Balance 1266.67 / 1266.67 950 / 950 Lab / Micro Data 07/01/24 07:20 07/01/24 07:20 Labs: Laboratory Results - last 24 hr 06/30/24 15:57: POC Glucose 216 H 06/30/24 20:53: POC Glucose 149 H 07/01/24 04:59: POC Glucose 117 H 07/01/24 07:20: WBC 4.9, RBC 4.01 L, Hgb 10.7 L, Hct 33.5 L, MCV 83.5, MCH 26.7 L, MCHC 31.9 L, RDW Std Deviation 44.7 H, RDW Coeff of Spencer 14.6, Plt Count 184, MPV 9.6, Immature Gran % (Auto) 0.200, Neut % (Auto) 64.0, Lymph % (Auto) 28.5, [place] % (Auto) 6.7, Eos % (Auto) 0.2, Baso % (Auto) 0.4, Absolute Neuts (auto) 3.1, Absolute Lymphs (auto) 1.40, Nucleated RBC % 0, Sodium 136, Potassium 3.4 L , Chloride 107, Carbon Dioxide 21.0, Anion Gap 9, BUN 27 H, Creatinine 1.19 H, Estim Creat Clear Calc 60.52, Est GFR (MDRD) Af Amer 61, Est GFR (MDRD) Non-Af 51 L, BUN/Creatinine Ratio 22.7 H, Glucose 159 H, Calcium 8.5, Phosphorus 2.4 L, Magnesium 2.0, Total Bilirubin 1.10 H, AST 24, ALT 22, Alkaline Phosphatase 80, Total Protein 6.2 L, Albumin 2.7 L, Globulin 3.5, Albumin/Globulin Ratio 0.8 L, TSH 1.730 07/01/24 11:02: POC Glucose 195 H Micro: Microbiology 06/29/24 17:49 Urine, Clean Catch Urine Culture - Preliminary Escherichia coli Physical Exam Const alert, oriented x3, no apparent distress and well nourished; Negative for average body habitus or healthy appearing Constitutional Narrative: Overweight, middle-aged, white female, lying in bed sleeping, appears comfortable, nontoxic-awakens easily to voice HEENT head/scalp atraumatic and moist oral mucous membranes HEENT Narrative: Edentulous, Mallampati 2-3, no thrush Resp normal respiratory effort, no retractions, no use of accessory muscles and clear to auscultation bilaterally Auscultation: Negative for rales, rhonchi or wheezes Cardio regular rate, regular rhythm, S1 normal heart sound, S2 normal heart sound, no murmurs, no rub, no gallops and no clicks GI normal to inspection, nondistended, normoactive bowel sounds and soft to palpation GI Narrative: Abdomen seems to be less tender today Extremity no clubbing, cyanosis or edema Extremity Narrative: Pedal pulses are 2+ Neuro oriented x3, moves all extremities and no focal motor deficits Speech: speech normal Psych Psych Narrative: More calm today, eye contact is good patient interacts appropriately Assessment & Plan Assessment/Plan (1) Dehydration: (2) Colitis: (3) UTI (urinary tract infection): PLAN: Plan Nausea/vomiting/diarrhea secondary to colitis -P.o. intake has improved so no further IV fluids ordered -Diet advance from clears to diabetic -Continue as needed antiemetics -CT of the abdomen pelvis does show findings consistent with colitis of the ascending and proximal transverse colon -With intermittent hypotension highly suspect that may be ischemic--> clinically improving -Hemoglobin is stable -Zosyn discontinued and transition to meropenem due to urine cultures -Will refer to outpatient GI for EGD and colonoscopy Hypokalemia/hypophosphatemia -K-Phos bolus given -Recheck lab in a.m. Acute/subacute compression fractures of L3 and L5 -Add lidocaine patch -K-pad available -Transition Tylenol to 1000 mg every 8 hours scheduled -As needed oxycodone added -If ongoing issues with pain may need pain management referral as an outpatient ESBL E. coli UTI -Fairly impressive resistance pattern -Will discontinue Zosyn and start on meropenem -Consult infectious disease -Sepsis was ruled out on admission Possible esophagitis/chronic GERD -Noted on CT of the abdomen pelvis -Continue home PPI -Outpatient referral to GI at the time of discharge for EGD and colonoscopy DM-2 -Continue SSI -Continue basal insulin at 30 units at at bedtime with home dosing being 40 units at at bedtime -Fasting blood sugar this morning was 159 on current regimen -Continue SSI -Accu-Cheks as ordered CAD/chronic combined heart failure/chronic hypotension/hyperlipidemia -Continue to hold Entresto due to hypotension-blood pressures appear to be improving overall -Hold home Aldactone -Continue home beta-linda with hold parameters -Continue home aspirin and Plavix Depression -Continue home escitalopram Tobacco abuse -Recommend cessation -Nicotine patch if patient desires DVT prophylaxis -Continue subcu enoxaparin CODE STATUS Full code as ordered Charges/Coding Visit Charges Inpatient E&M: 69947 Subs Hosp L2
[2024-07-01 16:37] LABS: Bedside Glucose 254 mg/dL (74-106)
[2024-07-01 20:02] VITALS: BP 115/68; PULSE 82; RESP 16; TEMP 37.1; O2SAT 94
[2024-07-01] MEDS: Atorvastatin Calcium 80 MG Tablet PO (22:23)
[2024-07-02] LABS: Bedside Glucose 215 mg/dL (74-106)
[2024-07-02] MEDS: proCHLORPERazine 10 MG/2 ML Vial 5 MG IV ×4 (00:06→20:24)
[2024-07-02] MEDS: 0.9% Saline Lock 10 ML Syringe IV ×4 (00:06→20:58)
[2024-07-02 02:00] VITALS: BP 105/60; PULSE 81; RESP 16; TEMP 37.3; O2SAT 95
[2024-07-02] MEDS: Meropenem 1 GM in 0.9% Normal Saline (100mL MB+) 100 ML IV ×3 (06:30→20:56)
[2024-07-02] MEDS: Gabapentin 300 MG Capsule PO ×3 (06:37→20:24)
[2024-07-02] MEDS: Acetaminophen 500 MG Tablet 1000 MG PO ×3 (06:38→20:24)
[2024-07-02 07:00] LABS: Absolute Lymphocyte Count 2.11 X10^3/uL (0.83-4.51); Absolute Neutrophil Count 2.4 X10^3/uL (2.0-7.7); Basophil# 0.02 X10^3/uL; Basophil% 0.4 % (0-1); Eosinophil# 0.03 X10^3/uL; Eosinophils% 0.6 % (0-5); Hematocrit 29.5 % (37-47); Hemoglobin 9.5 g/dL (12.0-15.0); Lymphocyte # 2.11 X10^3/ul (0.83-4.51); Lymphocyte % 42.8 % (19-41); Mean Corp Hgb Conc 32.2 g/dL (32-36); Mean Corpuscular Hgb 27.1 pg (27.0-32.0); Mean Platelet Vol. 9.9 fl (6.2-12.0); Monocyte% 8.1 % (0-10); NRBC Flagged by Analyzer 0 % (0-5); Neutrophil # 2.35 X10^3/uL (2.7-7.7); Neutrophil % 47.7 % (47-70); Platelet Count 174 K/mm3 (150-450); RBC Distribution Width CV 14.6 % (11.6-14.6); RBC Distribution Width SD 44.8 fl (35.1-43.9); Red Blood Count 3.51 M/mm3 (4.2-5.4); White Blood Count 4.9 K/mm3 (4.4-11.0)
[2024-07-02 07:16] LABS: Bedside Glucose 128 mg/dL (74-106)
[2024-07-02 07:38] LABS: Anion Gap 8 (5-15); BUN 25 mg/dL (7-18); BUN/Creat Ratio 26.7 RATIO (10-20); Calcium,Total 8.3 mg/dL (8.5-10.1); Chloride 104 mmol/L (98-107); Creatinine, Serum 0.94 mg/dL (0.55-1.02); EST Glomerular Filtration Rate 67 mL/min (>60); Est Glom Filt Rate - Afr Amer 81 mL/min (>60); Estimated Creatinine Clearance 76.61 ml/min; Glucose 134 mg/dL (74-106); Phosphorus 2.8 mg/dL (2.5-4.9); Potassium 3.6 mmol/L (3.5-5.1); Sodium Level 137 mmol/L (136-145)
[2024-07-02 09:22] VITALS: BP 115/58; PULSE 81; RESP 18; TEMP 36.8; O2SAT 95
[2024-07-02] MEDS: Carvedilol 6.25 MG Tablet PO ×2 (09:28→20:26)
[2024-07-02] MEDS: Menthol/Lanolin/Calamine/Znox 113 GM Tube 1 APPLIC TOPICAL ×2 (09:28→20:29)
[2024-07-02] MEDS: Aspirin 81 MG TAB.CHEW PO (09:28)
[2024-07-02] MEDS: Pantoprazole Sodium 40 MG Tablet PO (09:28)
[2024-07-02] MEDS: Clopidogrel Bisulfate 75 MG Tablet PO (09:28)
[2024-07-02] MEDS: Enoxaparin 40 MG/0.4 ML Syringe SC (09:29)
[2024-07-02] MEDS: Lidocaine 5% Patch 1 PATCH TOPICAL (09:29)
[2024-07-02] MEDS: Escitalopram Oxalate 20 MG Tablet PO (09:32)
[2024-07-02] MEDS: Furosemide 20 MG Tablet PO (09:43)
[2024-07-02] MEDS: Insulin Lispro 100 UNIT/ML INSULN.PEN SC ×3 (11:51→20:28)
[2024-07-02 12:10] LABS: Bedside Glucose 155 mg/dL (74-106)
--- NOTE | 2024-07-02 13:17 | PCM.CONS.GEN ---
Assessment & Plan Assessment/Plan (1) UTI (urinary tract infection): PLAN: Ucx with ESBL ecoli. CT showed colitis. Concern for pyelo. Sx not much improved, may need Gi to see her in the hospital if sx do not improve. Cont meropenem. Discussed options, tentative plan would be going to the infusion center for 7 days IM ertapenem 1 gm daily mixed with lidocaine at discharge. Will follow, thank you (2) Colitis: HPI Consult Data Date of Consult: 07/02/24 HPI Narrative Reason for Consultation: pyelo HPI Narrative: TRENTON DENTON, is a 53 F with h/o CAD, presented 06/29 to ED with 3 days progressive R flank pain, R sided abd pain, n/v/d, chills. No urinary changes, no h/o kidney stones. Pain was moderate. Admitted, now on meropenem, still with pain and nausea. Full ROS performed and neg except as noted above. FORMERLY [facility], 1928–1983 Medical History ESBL (extended spectrum beta-lactamase) producing bacteria infection Generalized weakness Candidiasis of breast Colitis Debility PTSD (post-traumatic stress disorder) Closed compression fracture of L3 vertebra Hypokalemia Colitis BiPAP (biphasic positive airway pressure) dependence Coronary artery disease L5 vertebral fracture On home oxygen therapy Rheumatoid arthritis Sleep apnea Smoker DVT (deep venous thrombosis) Seizures Amputation toe Psychiatric disorder Ischemic cardiomyopathy Diabetes type 2, uncontrolled Essential hypertension Substance abuse Alcohol abuse Depression Osteoporosis GERD (gastroesophageal reflux disease) Pulmonary embolism Myocardial infarct Pericardial effusion Hypoxemia Acute dyspnea Aftercare following surgery of the circulatory system Hx of fracture of humerus Toe amputee Hyperlipidemia CHF (congestive heart failure) CAD (coronary artery disease), [place] coronary artery Home Medications ?Medication ?Instructions ?Recorded ?Last Taken ?Type aspirin 81 mg capsule 81 mg PO DAILY heart health 08/10/22 02/01/23 History clopidogrel 75 mg tablet 75 mg PO DAILY anti platelet #30 02/03/23 02/13/24 10:00 Rx tabs 75 mg pantoprazole 40 mg tablet,delayed 40 mg PO DAILY reflux 04/18/23 02/13/24 10:00 History release 40 mg sacubitril 24 mg-valsartan 26 mg 1 tab PO BID 30 days #60 tabs 05/07/23 02/13/24 22:00 Rx tablet (Entresto) 1 TAB atorvastatin 80 mg tablet 80 mg PO QHS cholesterol 12/29/23 Unknown History gabapentin 300 mg capsule 300 mg PO TID 12/29/23 02/13/24 08:00 History 300 mg insulin glargine 100 unit/mL (3 40 unit subcut DAILY dm 12/29/23 02/13/24 07:00 History mL) subcutaneous pen (Lantus 40 units Solostar U-100 Insulin) insulin lispro 100 unit/mL 1 sliding scale dose subcut TIDCM 12/29/23 Unknown History subcutaneous half-unit pen DIC 2%/RINKU 6%/LIDOC 2% IN 1 - 2 pump subdermal Q6H PRN FOR 02/14/24 Unknown History saltsable FEET cholecalciferol (vitamin D3) 1,250 1,250 mcg PO WE 02/14/24 Unknown History mcg (50,000 unit) tablet spironolactone 25 mg tablet 25 mg PO DAILY water pill 30 days 02/17/24 02/13/24 10:00 Rx #0 tabs 12.5 mg carvedilol 3.125 mg tablet 6.25 mg (2 x 3.125 mg) PO BID 02/19/24 Unknown Rx blood pressure 30 days #0 tabs ergocalciferol (vitamin D2) 1,250 1,250 mcg PO We@1000 #0 caps 02/19/24 Unknown Rx mcg (50,000 unit) capsule (Vitamin D2) insulin glargine 100 unit/mL (3 20 unit (0.2 mL) subcut QPM 30 02/19/24 02/13/24 22:00 Rx mL) subcutaneous pen (Lantus days #0 mL 24 units Solostar U-100 Insulin) escitalopram oxalate 20 mg tablet 20 mg PO DAILY depression 06/29/24 Unknown History furosemide 20 mg tablet 20 mg PO DAILY water pill 06/29/24 Unknown History gabapentin 400 mg capsule mg 3XD 06/29/24 Unknown History midodrine 2.5 mg tablet mg 06/29/24 Unknown History ondansetron HCl 4 mg tablet 4 mg PO Q8H nausea 06/29/24 Unknown History polyethylene glycol 3350 17 17 g PO BID PRN constipation 06/29/24 Unknown History gram/dose oral powder (Miralax) sennosides 8.6 mg-docusate sodium 2 tab PO BID PRN constipation 06/29/24 Unknown History 50 mg tablet (Stimulant Laxative Plus) tizanidine 4 mg tablet 4 mg PO 3XD spasm 06/29/24 Unknown History Allergy/AdvReac Type Severity Reaction Status Date / Time latex Allergy Hives Verified 06/29/24 13:35 Family History Mother Thyroid disorder Diabetes Hypertension Grandmother Diabetes Uncle Diabetes Aunt Diabetes Other Heart disease Surgical History History of cholecystectomy History of appendectomy History of cholecystectomy Social History household members: spouse and children housing: house Smoking Status: Current every day smoker tobacco type: cigarettes alcohol intake: never substance use type: marijuana what type of physical activity do you participate in: none do you feel safe at home: Yes Physical Exam Const alert, oriented x3 and no apparent distress General Appearance: cooperative HEENT normocephalic and head/scalp atraumatic Eyes PERRL and EOMs intact bilaterally Neck supple and No nodes Resp normal air movement and clear to auscultation bilaterally Cardio regular rate and regular rhythm GI soft to palpation and non-distended GI Narrative: mild soreness in R abd and R flank Extremity General Extremity: Negative for edema Skin no rashes or lesions noted Neuro CN's II-XII intact bilaterally Lab / Micro Data Attestation: I reviewed the patient's lab results. 07/02/24 06:39 07/02/24 06:39 Labs: Laboratory Results - last 24 hr 07/01/24 16:10: POC Glucose 254 H 07/01/24 22:21: POC Glucose 215 H 07/02/24 06:33: POC Glucose 128 H 07/02/24 06:39: WBC 4.9, RBC 3.51 L, Hgb 9.5 L, Hct 29.5 L, MCV 84.0, MCH 27.1, MCHC 32.2, RDW Std Deviation 44.8 H, RDW Coeff of Spencer 14.6, Plt Count 174, MPV 9.9, Immature Gran % (Auto) 0.400, Neut % (Auto) 47.7, Lymph % (Auto) 42.8 H, [place] % (Auto) 8.1, Eos % (Auto) 0.6, Baso % (Auto) 0.4, Absolute Neuts (auto) 2.4, Absolute Lymphs (auto) 2.11, Nucleated RBC % 0, Sodium 137, Potassium 3.6, Chloride 104, Carbon Dioxide 24.0, Anion Gap 8, BUN 25 H, Creatinine 0.94, Estim Creat Clear Calc 76.61, Est GFR (MDRD) Af Amer 81, Est GFR (MDRD) Non-Af 67, BUN/Creatinine Ratio 26.7 H, Glucose 134 H, Calcium 8.3 L, Phosphorus 2.8, Magnesium 2.0 07/02/24 11:50: POC Glucose 155 H Micro: Microbiology 06/29/24 17:49 Urine, Clean Catch Urine Culture - Final ESBL Escherichia coli
--- NOTE | 2024-07-02 13:42 | CT_ITS ---
PROCEDURE: ABDOMEN/PEL W ORAL CONT ONLY REASON FOR EXAM: Nausea and vomiting. TECHNIQUE: Abdomen and pelvis CT with intravenous contrast. COMPARISON: 06/25/2023 CT. FINDINGS: Lung bases: Left lower lobe linear atelectasis versus scar. Liver: Redemonstration of right hepatic lobe lesion previously characterized as a hemangioma. Gallbladder: Surgically absent. Spleen: Unremarkable. Pancreas: Unremarkable. Adrenals: Left adrenal 17 mm nodule compatible with adenoma. Right adrenal 22 mm indeterminate nodul e. Kidneys: Unremarkable. Bladder: Intraluminal air. Reproductive Organs: Unremarkable. Bowel: Diverticulosis. No surrounding inflammatory changes. Appendix: Left kidney simple cyst. Lymph nodes: No suspicious lymph node enlargement. Vasculature: Major vascular structures are unremarkable. Peritoneum / Retroperitoneum: No ascites. No free air. Bones: Right femoral internal fixation. Chronic healing right lower rib fractures. Moderate L3 comp ression deformity and mild L5 compression deformity unchanged since the prior CT. CT/Abdomen/Pel W ORAL Cont Only IMPRESSION: 1. Intraluminal air. This may represent prior institution or an infection. Co rrelate with urinalysis and clinical history. 2. Indeterminate right adrenal nodule. Further characterization with adrenal p rotocol in 1 year is recommended. 3. Left adrenal adenoma. 4. Chronic and ancillary findings as above. One or more dose reduction techniques were used (e.g., Automated exposure contr ol, adjustment of the mA and/or kV according to patient size, use of iterative reconstruction technique). Reading Location: [id number]
[2024-07-02 14:00] VITALS: BP 135/79; PULSE 88; RESP 16; TEMP 36.7; O2SAT 97
[2024-07-02 14:01] LABS: Ferritin 148 ng/mL (8-252); Iron 106 ug/dL (50-170); Iron Binding Capacity,Total 266 ug/dL (250-450); PERCENT IRON SATURATION 39.8 % (15.0-55.0)
--- NOTE | 2024-07-02 15:07 | NURSING ---
Called CT scan and made them aware that the pt is having a hard time getting the oral contrast done, and has not even got the one bottle in yet.
--- NOTE | 2024-07-02 16:28 | PN.HOSP_ITS ---
Reason for Visit Reason for Visit: Abdominal pain Subjective Subjective Patient eating well now with no vomiting but still complaining of abdominal pain. Very nondescript. Patient is urinating and defecating in her bed and refusing to get up and demands to be cleaned up. Clinically she appears better overall. Is somewhat of a nonreliable historian. Objective Data Objective Data Vital Signs: Vital Signs Temp Pulse Resp BP Pulse Ox O2 Del Method 98.1 F 88 16 135/79 H 97 Room Air 07/02/24 14:00 07/02/24 14:00 07/02/24 14:00 07/02/24 14:00 07/02/24 14:00 07/02/24 14:00 Oxygen Delivery Method Room Air Weight: 80.9 kg Body Mass Index (BMI) 28.0 Intake & Output: Intake and Output for Last 24 Hours 06/30/24 07/01/24 07/02/24 23:59 23:59 23:59 Intake Total 1726 1682.5 / 1682.5 Balance 1726 1682.5 / 1682.5 Lab / Micro Data 07/02/24 06:39 07/02/24 06:39 Labs: Laboratory Results - last 24 hr 07/01/24 16:10: POC Glucose 254 H 07/01/24 22:21: POC Glucose 215 H 07/02/24 06:33: POC Glucose 128 H 07/02/24 06:39: WBC 4.9, RBC 3.51 L, Hgb 9.5 L, Hct 29.5 L, MCV 84.0, MCH 27.1, MCHC 32.2, RDW Std Deviation 44.8 H, RDW Coeff of Spencer 14.6, Plt Count 174, MPV 9.9, Immature Gran % (Auto) 0.400, Neut % (Auto) 47.7, Lymph % (Auto) 42.8 H, [place] % (Auto) 8.1, Eos % (Auto) 0.6, Baso % (Auto) 0.4, Absolute Neuts (auto) 2.4, Absolute Lymphs (auto) 2.11, Nucleated RBC % 0, Sodium 137, Potassium 3.6, Chloride 104, Carbon Dioxide 24.0, Anion Gap 8, BUN 25 H, Creatinine 0.94, Estim Creat Clear Calc 76.61, Est GFR (MDRD) Af Amer 81, Est GFR (MDRD) Non-Af 67, B UN/Creatinine Ratio 26.7 H, Glucose 134 H, Calcium 8.3 L, Phosphorus 2.8, Magnesium 2.0, Iron 106, TIBC 266, Iron Saturation 39.8, Ferritin 148 07/02/24 11:50: POC Glucose 155 H Micro: Microbiology 06/29/24 17:49 Urine, Clean Catch Urine Culture - Final ESBL Escherichia coli Physical Exam Const alert, oriented x3, no apparent distress and well nourished; Negative for average body habitus or healthy appearing Constitutional Narrative: Overweight, middle-aged, white female, sitting up in bed watching television, does not appear uncomfortable, eaten tray at bedside, nontoxic HEENT head/scalp atraumatic and moist oral mucous membranes HEENT Narrative: Mallampati 3, no thrush, edentulous Head and Scalp: normocephalic Resp normal respiratory effort, no retractions, no use of accessory muscles and clear to auscultation bilaterally Auscultation: Negative for rales, rhonchi or wheezes Cardio regular rate, regular rhythm, S1 normal heart sound, S2 normal heart sound, no murmurs, no rub, no gallops and no clicks GI normal to inspection, nondistended, normoactive bowel sounds and soft to palpation GI Narrative: Still with mild diffuse tenderness but no point tenderness in abdomen seems to be more tender than expected with light palpation Extremity no clubbing, cyanosis or edema Extremity Narrative: Pedal pulses are 2+ Neuro oriented x3, moves all extremities and no focal motor deficits Speech: speech normal Psych Psych Narrative: More calm today, eye contact is good patient interacts appropriately Assessment & Plan Assessment/Plan (1) Dehydration: (2) Colitis: (3) UTI (urinary tract infection): PLAN: Plan Nausea/vomiting/diarrhea secondary to colitis -P.o. intake has improved so no further IV fluids ordered -Diet advance from clears to diabetic -Continue as needed antiemetics -Since she was complaining of ongoing abdominal pain we did repeat her scan which did not show any colitis at this time -Hemoglobin is stable -Continue meropenem -Will refer to outpatient GI for EGD and colonoscopy Hypokalemia/hypophosphatemia -Resolved Acute/subacute compression fractures of L3 and L5 -Add lidocaine patch -K-pad available -Transition Tylenol to 1000 mg every 8 hours scheduled -As needed oxycodone added -Pain seems to be stable ESBL E. coli UTI -Fairly impressive resistance pattern -Infectious diseases following and agrees with meropenem at this time -Plan for discharge tentatively would be infusion center for 7 days for IM ertapenem 1 g -No signs of pyelonephritis on CT of the abdomen pelvis Possible esophagitis/chronic GERD -Noted on CT of the abdomen pelvis -Continue home PPI -Outpatient referral to GI at the time of discharge for EGD and colonoscopy DM-2 -Continue SSI -Continue basal insulin at 30 units at at bedtime with home dosing being 40 units at at bedtime -Fasting blood sugar this morning was 134 on current regimen -Continue SSI -Accu-Cheks as ordered CAD/chronic combined heart failure/chronic hypotension/hyperlipidemia -Continue to hold Entresto due to hypotension-blood pressures appear to be improving overall -Hold home Aldactone -Continue home beta-linda with hold parameters -Continue home aspirin and Plavix Depression -Continue home escitalopram Tobacco abuse -Recommend cessation -Nicotine patch if patient desires DVT prophylaxis -Continue subcu enoxaparin CODE STATUS Full code as ordered Charges/Coding Visit Charges Inpatient E&M: 29333 Subs Hosp L2
--- NOTE | 2024-07-02 16:39 | NURSING ---
All documentation by student nurse Jonathon Sutton reviewed by manager nursing Griselda Nava BSN, RN.
[2024-07-02 17:27] LABS: Bedside Glucose 190 mg/dL (74-106)
[2024-07-02 20:17] VITALS: BP 168/80; PULSE 88; RESP 18; TEMP 36.8; O2SAT 98
[2024-07-02] MEDS: MELATONIN 3 MG TABLET PO (20:23)
[2024-07-02] MEDS: Atorvastatin Calcium 80 MG Tablet PO (20:26)
[2024-07-02 21:20] LABS: Bedside Glucose 159 mg/dL (74-106)
[2024-07-03 01:41] VITALS: BP 127/78; PULSE 85; RESP 18; TEMP 36.6; O2SAT 99
[2024-07-03 03:49] VITALS: BP 106/63; PULSE 80; RESP 18; TEMP 36.5; O2SAT 93
[2024-07-03 03:57] VITALS: BMI 28.8
[2024-07-03] MEDS: Gabapentin 300 MG Capsule PO (06:05)
[2024-07-03] MEDS: Meropenem 1 GM in 0.9% Normal Saline (100mL MB+) 100 ML IV (06:05)
[2024-07-03] MEDS: proCHLORPERazine 10 MG/2 ML Vial 5 MG IV (06:05)
[2024-07-03] MEDS: Acetaminophen 500 MG Tablet 1000 MG PO (06:05)
[2024-07-03 07:25] LABS: Absolute Lymphocyte Count 1.43 X10^3/uL (0.83-4.51); Absolute Neutrophil Count 2.6 X10^3/uL (2.0-7.7); Basophil# 0.02 X10^3/uL; Basophil% 0.4 % (0-1); Eosinophil# 0.03 X10^3/uL; Eosinophils% 0.7 % (0-5); Hematocrit 32.6 % (37-47); Hemoglobin 10.8 g/dL (12.0-15.0); Lymphocyte # 1.43 X10^3/ul (0.83-4.51); Mean Corp Hgb Conc 33.1 g/dL (32-36); Mean Corpuscular Hgb 27.2 pg (27.0-32.0); Mean Corpuscular Volume 82.1 fL (81-99); Mean Platelet Vol. 10.2 fl (6.2-12.0); Monocyte# 0.39 X10^3/uL; Monocyte% 8.7 % (0-10); NRBC Flagged by Analyzer 0 % (0-5); Neutrophil # 2.57 X10^3/uL (2.7-7.7); Neutrophil % 57.5 % (47-70); Platelet Count 192 K/mm3 (150-450); RBC Distribution Width CV 14.3 % (11.6-14.6); RBC Distribution Width SD 42.9 fl (35.1-43.9); Red Blood Count 3.97 M/mm3 (4.2-5.4); White Blood Count 4.5 K/mm3 (4.4-11.0)
[2024-07-03 07:28] LABS: Bedside Glucose 137 mg/dL (74-106)
[2024-07-03 07:47] LABS: Anion Gap 5 (5-15); BUN 15 mg/dL (7-18); BUN/Creat Ratio 24.4 RATIO (10-20); Calcium,Total 8.6 mg/dL (8.5-10.1); Chloride 105 mmol/L (98-107); Creatinine, Serum 0.61 mg/dL (0.55-1.02); EST Glomerular Filtration Rate 108 mL/min (>60); Est Glom Filt Rate - Afr Amer 131 mL/min (>60); Estimated Creatinine Clearance 119.69 ml/min; Glucose 163 mg/dL (74-106); Potassium 3.4 mmol/L (3.5-5.1); Sodium Level 137 mmol/L (136-145)
[2024-07-03 08:55] VITALS: BP 156/84; PULSE 96; RESP 18; TEMP 36.3; O2SAT 100
[2024-07-03] MEDS: Furosemide 20 MG Tablet PO (08:58)
[2024-07-03] MEDS: Menthol/Lanolin/Calamine/Znox 113 GM Tube 1 APPLIC TOPICAL (08:58)
[2024-07-03] MEDS: Pantoprazole Sodium 40 MG Tablet PO (08:59)
[2024-07-03] MEDS: Enoxaparin 40 MG/0.4 ML Syringe SC (08:59)
[2024-07-03] MEDS: Carvedilol 6.25 MG Tablet PO (08:59)
[2024-07-03] MEDS: Clopidogrel Bisulfate 75 MG Tablet PO (08:59)
[2024-07-03] MEDS: Escitalopram Oxalate 20 MG Tablet PO (08:59)
[2024-07-03] MEDS: Aspirin 81 MG TAB.CHEW PO (08:59)
[2024-07-03] MEDS: Lidocaine 5% Patch 1 PATCH TOPICAL (08:59)
--- NOTE | 2024-07-03 09:35 | CASEMGMT ---
Addendum entered by Yenni Edwards 07/03/24 10:38: TC to [facility] Infusion, spoke with Cecilia, pt is set up with infusion center starting tomorrow at noon. Faxed rx to [facility] Infusion. CHAYITO BARKLEY into pt room, pt is aware of the appt and denies further homegoing needs. Original Note: CHAYITO BARKLEY received rx for IM antibiotic for pt. CHAYITO BARKLEY into pt room, pt states she would like to go to [facility] infusion center and has discussed this with ID. Pt prefers an afternoon appt. Pt states her dtr can transport her to these appts.
[2024-07-03] MEDS: Haloperidol 1 MG Tablet PO (11:06)
[2024-07-03] MEDS: Insulin Lispro 100 UNIT/ML INSULN.PEN SC (11:08)
[2024-07-03 11:32] LABS: Bedside Glucose 180 mg/dL (74-106)
--- NOTE | 2024-07-03 12:30 | DS.PCM_ITS ---
Providers Date of Admission: 06/29/24 Date of Discharge: 07/03/24 Primary Care Physician: [facility] Consultations 07/01/24 09:38 Consult: Infectious Disease Routine Consulting Provider: Dominguez Mcneil Reason for Consult: ESBL UTI EMERGENT Consult: No MD Notified: Yes Date Notified: 07/01/24 Time Notified: 10:15 Method of Notification: Text Reason For Visit: COLITIS, UTI Diagnosis Discharge Diagnosis (1) Dehydration: Status: Acute Code(s): E86.0 - Dehydration (2) Colitis: Status: Acute Code(s): K52.9 - Noninfective gastroenteritis and colitis, unspecified (3) UTI (urinary tract infection): Status: Acute Code(s): N39.0 - Urinary tract infection, site not specified Plan Nausea/vomiting/diarrhea secondary to colitis -P.o. intake has improved so no further IV fluids ordered -Diet advance from clears to diabetic -Continue as needed antiemetics -Since she was complaining of ongoing abdominal pain we did repeat her scan which did not show any colitis at this time -Hemoglobin is stable -Continue meropenem -Will refer to outpatient GI for EGD and colonoscopy Hypokalemia/hypophosphatemia -Resolved Acute/subacute compression fractures of L3 and L5 -Add lidocaine patch -K-pad available -Transition Tylenol to 1000 mg every 8 hours scheduled -As needed oxycodone added -Pain seems to be stable ESBL E. coli UTI -Fairly impressive resistance pattern -Infectious diseases following and agrees with meropenem at this time -Plan for discharge tentatively would be infusion center for 7 days for IM ertapenem 1 g -No signs of pyelonephritis on CT of the abdomen pelvis Possible esophagitis/chronic GERD -Noted on CT of the abdomen pelvis -Continue home PPI -Outpatient referral to GI at the time of discharge for EGD and colonoscopy DM-2 -Continue SSI -Continue basal insulin at 30 units at at bedtime with home dosing being 40 units at at bedtime -Fasting blood sugar this morning was 134 on current regimen -Continue SSI -Accu-Cheks as ordered CAD/chronic combined heart failure/chronic hypotension/hyperlipidemia -Continue to hold Entresto due to hypotension-blood pressures appear to be improving overall -Hold home Aldactone -Continue home beta-linda with hold parameters -Continue home aspirin and Plavix Depression -Continue home escitalopram Tobacco abuse -Recommend cessation -Nicotine patch if patient desires DVT prophylaxis -Continue subcu enoxaparin CODE STATUS Full code as ordered Medications at Discharge Home Medications aspirin 81 mg capsule 81 mg PO DAILY heart health 08/10/22 clopidogrel 75 mg tablet 75 mg PO DAILY anti platelet #30 tabs 02/03/23 pantoprazole 40 mg tablet,delayed release 40 mg PO DAILY reflux 04/18/23 sacubitril 24 mg-valsartan 26 mg tablet (Entresto) 1 tab PO BID 30 days #60 tabs 05/07/23 atorvastatin 80 mg tablet 80 mg PO QHS cholesterol 12/29/23 gabapentin 300 mg capsule 300 mg PO TID 12/29/23 insulin glargine 100 unit/mL (3 mL) subcutaneous pen (Lantus Solostar U-100 Insulin) 40 unit subcut DAILY dm 12/29/23 insulin lispro 100 unit/mL subcutaneous half-unit pen 1 sliding scale dose subcut TIDCM 12/29/23 DIC 2%/RINKU 6%/LIDOC 2% IN saltsable 1 - 2 pump subdermal Q6H PRN FOR FEET 02/14/24 cholecalciferol (vitamin D3) 1,250 mcg (50,000 unit) tablet 1,250 mcg PO WE 02/14/24 spironolactone 25 mg tablet 25 mg PO DAILY water pill 30 days #0 tabs 02/17/24 carvedilol 3.125 mg tablet 6.25 mg (2 x 3.125 mg) PO BID blood pressure 30 days #0 tabs 02/19/24 ergocalciferol (vitamin D2) 1,250 mcg (50,000 unit) capsule (Vitamin D2) 1,250 mcg PO We@1000 #0 caps 02/19/24 insulin glargine 100 unit/mL (3 mL) subcutaneous pen (Lantus Solostar U-100 Insulin) 20 unit (0.2 mL) subcut QPM 30 days #0 mL 02/19/24 escitalopram oxalate 20 mg tablet 20 mg PO DAILY depression 06/29/24 furosemide 20 mg tablet 20 mg PO DAILY water pill 06/29/24 gabapentin 400 mg capsule mg 3XD 06/29/24 midodrine 2.5 mg tablet mg 06/29/24 ondansetron HCl 4 mg tablet 4 mg PO Q8H nausea 06/29/24 polyethylene glycol 3350 17 gram/dose oral powder (Miralax) 17 g PO BID PRN constipation 06/29/24 sennosides 8.6 mg-docusate sodium 50 mg tablet (Stimulant Laxative Plus) 2 tab PO BID PRN constipation 06/29/24 tizanidine 4 mg tablet 4 mg PO 3XD spasm 06/29/24 haloperidol 1 mg tablet 1 mg PO TID #21 tabs 07/03/24 Hospital Course Operations None Procedures - (CT abdomen pelvis/CT abdomen/chest x-ray) Summary of Care Provided Minutes Spent on Discharge: 39 Hospital Course: Ms. Jackson is a 53-year-old white female who presented to emergency department [facility] on 06/29/2024 complaining of 3 days of nausea, vomiting, and diarrhea as well as diffuse abdominal pain and has been generally feeling unwell. She was unclear about how many episodes of diarrhea she was having per day. She denied any dysuria, urinary frequency or urgency on presentation. Upon presentation the emergency department her vital signs were stable and lab work was benign aside from a UA that was suggestive of urinary tract infection. CT of the abdomen pelvis was performed and showed possible UTI with inflammation noted in the bladder as well as colitis. Given her continued nausea and abdominal pain the patient was having difficulty taking anything by mouth so we were consulted for admission. She does indicate most of her pain is over the right upper quadrant. She does no longer have a gallbladder and her liver enzymes are unremarkable. No biliary duct dilation was noted on her CAT scan. She has had no diarrhea since admission she still complains of intermittent nausea and complains of back pain and abdominal pain. She states the back pain is chronic and the abdominal pain is intermittent. Due to her CT showing colitis and suspected urine tract infection she was placed on Zosyn and admitted to the medical floor. She was placed on IV fluids and antiemetics. We were slowly able to advance her diet and had while she was having intermittent nausea symptoms overall had improved and she was able to tolerate p.o. diet. We did discuss discharging her with Haldol as needed for nausea which she was agreeable to and would like so prescription for this was sent to her pharmacy at the time of discharge. Her urine culture showed gram-negative rods and resulted out as a ESBL E. coli so she was transition from Zosyn to meropenem and infectious disease was consulted. She did complain of some flank pain so we repeated the CT to make sure there was no signs of pyelonephritis. CT was unremarkable and her colitis had resolved and the kidneys bilaterally looked good. Given this, infectious disease recommended outpatient IM ertapenem daily x 7 days at the infusion center and prescription was sent for this at discharge along with the Haldol as noted above. Patient was able to be discharged in stable condition on 07/03/2023. The patient throughout her hospital course was very unmotivated for any self-care and I suspect risk of readmission is high due to this. Discharge diagnoses: Nausea/vomiting-resolving Diarrhea-resolved Colitis-resolved ESBL E. coli UTI Acute/subacute compression fractures of L3 and L5 Hypokalemia-resolved Hypophosphatemia-resolved Possible esophagitis/chronic GERD-outpatient GI referral DM-2 CAD Combined chronic heart failure Chronic hypotension Hyperlipidemia Depression Tobacco abuse Physical Exam Const alert, oriented x3, no apparent distress, no limitations and well nourished; Negative for average body habitus or healthy appearing Constitutional Narrative: Overweight, middle-aged, white female, lying in bed flat sleeping but awakens easily, appears comfortable but still complaining of intermittent abdominal pain General Appearance: cooperative, comfortable, well kempt and well developed Exam Limitations: no limitations Nutritional Appearance: obese HEENT normocephalic, head/scalp atraumatic, hearing grossly normal bilaterally and moist oral mucous membranes HEENT Narrative: Edentulous, Mallampati 2, no thrush Eyes EOMs intact bilaterally and conjunctivae normal Eyes Narrative: No scleral icterus Neck supple Neck Narrative: Neck is short and thick and trachea is midline Resp normal respiratory effort, no retractions, no use of accessory muscles and clear to auscultation bilaterally Auscultation: Negative for rales, rhonchi or wheezes Cardio regular rate, regular rhythm, S1 normal heart sound, S2 normal heart sound, no murmurs, no rub, no gallops and no clicks GI normal to inspection, nondistended, normoactive bowel sounds and soft to palpation GI Narrative: Still with mild diffuse tenderness but no point tenderness in abdomen seems to be more tender than expected with light palpation Extremity no clubbing, cyanosis or edema Extremity Narrative: Pedal pulses are 2+ Skin skin turgor normal, no jaundice, no petechiae and no mottling Neuro oriented x3, moves all extremities and no focal motor deficits Speech: speech normal Psych Psych Narrative: Calm, affect is flat, patient disinterested Weight / BMI Weight Weight: 83.3 kg Body Mass Index (BMI) 28.8 ABG / Lab / Microbiology Data 07/03/24 05:34 07/03/24 05:34 Laboratory: Laboratory Results - last 24 hr 07/02/24 06:39: Iron 106, TIBC 266, Iron Saturation 39.8, Ferritin 148 07/02/24 17:02: POC Glucose 190 H 07/02/24 20:21: POC Glucose 159 H 07/03/24 05:34: WBC 4.5, RBC 3.97 L, Hgb 10.8 L, Hct 32.6 L, MCV 82.1, MCH 27.2, MCHC 33.1, RDW Std Deviation 42.9, RDW Coeff of Spencer 14.3, Plt Count 192, MPV 10.2, Immature Gran % (Auto) 0.700, Neut % (Auto) 57.5, Lymph % (Auto) 32.0, [place] % (Auto) 8.7, Eos % (Auto) 0.7, Baso % (Auto) 0.4, Absolute Neuts (auto) 2.6, Absolute Lymphs (auto) 1.43, Nucleated RBC % 0, Sodium 137, Potassium 3.4 L , Chloride 105, Carbon Dioxide 27.0, Anion Gap 5, BUN 15, Creatinine 0.61, Estim Creat Clear Calc 119.69, Est GFR (MDRD) Af Amer 131, Est GFR (MDRD) Non-Af 108, BUN/Creatinine Ratio 24.4 H, Glucose 163 H, Calcium 8.6 07/03/24 06:22: POC Glucose 137 H 07/03/24 11:08: POC Glucose 180 H Microbiology: Microbiology 06/29/24 17:49 Urine, Clean Catch Urine Culture - Final ESBL Escherichia coli Radiography Diagnostic Testing: Radiology Impression Abdomen CT 07/02/24 13:42 IMPRESSION: 1. Intraluminal air. This may represent prior institution or an infection. Correlate with urinalysis and clinical history. 2. Indeterminate right adrenal nodule. Further characterization with adrenal protocol in 1 year is recommended. 3. Left adrenal adenoma. 4. Chronic and ancillary findings as above. One or more dose reduction techniques were used (e.g., Automated exposure control, adjustment of the mA and/or kV according to patient size, use of iterative reconstruction technique). Reading Location: [id number] Instructions Discharge Diet: Light diet - advance as tolerated and Low fat / Low cholesterol Discharge Activity: Return to Normal Activity DC O2, CPAP, BIPAP Needs Home O2 Discharge instructions: No Meaningful Use Info Meaningful Use Meaningful Use Diagnoses (Choose all that apply): None applicable Ischemic Stroke Statin Dosing Therapy Reference: STATIN DOSE THERAPY REFERENCE: * Patients > 75 years receive moderate or high dose statin therapy. * Patients 75 years or YOUNGER should receive HIGH intensity statin dose unless contraindicated. You will be required to document reason for non-treatment if statin daily dose does not meet guidelines. HIGH DOSE STATIN THERAPY DAILY Atorvastatin > than or = to 40 mg Rosuvastatin > than or = to 20 mg Amlodipine + Atorvastatin > than or = to 2.5/40 mg Ezetimibe + Simvastatin 10/80 mg Simvastatin 80mg Discharge Plan Admission Admit Date/Time: 06/29/24 20:31 Primary Reason for Your Visit: Abdominal pain Attending Provider: Nicole Trujillo [facility] Providers: Brenda Posadas; Dominguez Mcneil Discharge Orders/Prescriptions Prescriptions: New haloperidol 1 mg tablet 1 mg PO TID Qty: 21 0RF Rx Instructions: for nausea Continued pantoprazole 40 mg tablet,delayed release (DR/EC) 40 mg PO DAILY aspirin 81 mg Capsule 81 mg PO DAILY clopidogrel 75 mg Tablet 75 mg PO DAILY Qty: 30 0RF Patient Comments: patient stated pretty sure I still take that sacubitril-valsartan [Entresto] 24-26 mg Tablet 1 tab PO BID 30 Days Qty: 60 0RF insulin glargine [Lantus Solostar U-100 Insulin] 100 unit/mL (3 mL) insulin pen 40 unit subcut DAILY insulin lispro 100 unit/mL insulin pen, half-unit 1 sliding scale dose subcut TIDCM atorvastatin 80 mg tablet 80 mg PO QHS gabapentin 300 mg Capsule 300 mg PO TID tizanidine 4 mg tablet 4 mg PO 3XD ondansetron HCl 4 mg tablet 4 mg PO Q8H gabapentin 400 mg capsule 3XD midodrine 2.5 mg tablet furosemide 20 mg tablet 20 mg PO DAILY escitalopram oxalate 20 mg tablet 20 mg PO DAILY sennosides-docusate sodium [Stimulant Laxative Plus] 8.6-50 mg Tablet 2 tab PO BID PRN (Reason: constipation) polyethylene glycol 3350 [Miralax] 17 gram/dose powder 17 g PO BID PRN (Reason: constipation) cholecalciferol (vitamin D3) 1,250 mcg (50,000 unit) tablet 1,250 mcg PO WE DIC 2%/RINKU 6%/LIDOC 2% IN saltsable cream 1 - 2 pump subdermal Q6H PRN (Reason: FOR FEET) spironolactone 25 mg tablet 25 mg PO DAILY 30 Days Qty: 0 0RF ergocalciferol (vitamin D2) [Vitamin D2] 1,250 mcg (50,000 unit) Capsule 1,250 mcg PO We@1000 Qty: 0 0RF carvedilol 3.125 mg tablet 6.25 mg PO BID 30 Days Qty: 0 0RF Rx Instructions: Hold for heart less than 50 or systolic blood pressure less than 100 mmHg. insulin glargine [Lantus Solostar U-100 Insulin] 100 unit/mL (3 mL) insulin pen 20 unit subcut QPM 30 Days Qty: 0 0RF Rx Instructions: Hold if glucose less than 130 mg/dl Referrals / Follow Up: Jeevan De Jesus DO [Med Staff - Active Staff] - 07/17/24 10:[facility] [Primary Care Provider] - Within 1 Week Disposition Disposition (needs filled in before D/C Order can be placed): Home, Self Care Charges/Coding Visit Charges Inpatient E&M: 04090 Disch Hosp >30min
[2024-07-03 13:17] VITALS: BP 107/57; PULSE 85; RESP 18; TEMP 36.3; O2SAT 100
== END 2024-07-03 17:44 | disposition home or self-care (01) | DRG 249 ==
LOC: ED 17:53 → MS3 06-30 06:28
PROVIDERS: Admitting Provider Internal Medicine; Emergency Provider Emergency Medicine; Visit Provider Internal Medicine
DX: K52.9 Noninfective gastroenteritis and colitis, unspecified (principal); S32.059A Unspecified fracture of fifth lumbar vertebra, initial encounter for closed fracture; E83.39 Other disorders of phosphorus metabolism; S32.039A Unspecified fracture of third lumbar vertebra, initial encounter for closed fracture; E11.9 Type 2 diabetes mellitus without complications; B96.20 Unspecified Escherichia coli [E. coli] as the cause of diseases classified elsewhere; I11.0 Hypertensive heart disease with heart failure; I50.42 Chronic combined systolic (congestive) and diastolic (congestive) heart failure; F32.A Depression, unspecified; E86.0 Dehydration; E78.5 Hyperlipidemia, unspecified; Z79.4 Long term (current) use of insulin; I25.10 Atherosclerotic heart disease of native coronary artery without angina pectoris; F17.210 Nicotine dependence, cigarettes, uncomplicated; E87.6 Hypokalemia; I25.2 Old myocardial infarction; K21.9 Gastro-esophageal reflux disease without esophagitis; I95.9 Hypotension, unspecified; N39.0 Urinary tract infection, site not specified; Z79.82 Long term (current) use of aspirin; Z79.02 Long term (current) use of antithrombotics/antiplatelets; Z79.899 Other long term (current) drug therapy; Z90.49 Acquired absence of other specified parts of digestive tract
CPT/HCPCS: 36415; 71045; 74176; 74177; 80048; 80053; 81001; 82728; 82962; 83540; 83550; 83690; 83735; 84100; 84443; 84484; 84703; 85025; 87077; 87086; 87088; 87186; 93005; 97162; 97166; 97530; 97535; 99285; 99406; J2185; Q9967; A4216; J2405

== ENCOUNTER 2024-07-04 12:18 | Outpatient (CLI) | payer MEDICAID, SELFPAY ==
[2024-07-04 12:57] VITALS: BP 128/69; PULSE 97; RESP 16; TEMP 35.8; O2SAT 100; BMI 26.6
[2024-07-04] MEDS: Ertapenem Sod 1 GM/10 ML Vial IM (13:30)
== END 2024-07-04 23:59 | disposition home or self-care (01) ==
LOC: MEDOUTP 12:21
PROVIDERS: Referring Provider Internal Medicine; Visit Provider Internal Medicine
DX: N39.0 Urinary tract infection, site not specified (principal); Z16.12 Extended spectrum beta lactamase (ESBL) resistance
CPT/HCPCS: 96372

== ENCOUNTER 2024-07-05 10:59 | Outpatient (CLI) | payer MEDICAID, SELFPAY ==
[2024-07-05] MEDS: Ertapenem Sod 1 GM/10 ML Vial IM (11:24)
[2024-07-05 11:27] VITALS: BP 142/83; PULSE 96; RESP 16; TEMP 35.5; O2SAT 94
== END 2024-07-05 23:59 | disposition home or self-care (01) ==
LOC: MEDOUTP 11:00
PROVIDERS: PCP Nurse Practitioner Family; Referring Provider Internal Medicine; Visit Provider Internal Medicine
DX: N39.0 Urinary tract infection, site not specified (principal); Z16.12 Extended spectrum beta lactamase (ESBL) resistance
CPT/HCPCS: 96372

== ENCOUNTER 2024-07-06 10:40 | Outpatient (CLI) | payer MEDICAID, SELFPAY ==
[2024-07-06] MEDS: Ertapenem Sod 1 GM/10 ML Vial IM (11:00)
== END 2024-07-06 11:00 | disposition home or self-care (01) ==
LOC: MEDOUTP 10:40 → PCU 10:41
PROVIDERS: PCP Nurse Practitioner Family; Referring Provider Internal Medicine; Visit Provider Internal Medicine
DX: N39.0 Urinary tract infection, site not specified (principal)
CPT/HCPCS: 96372

== ENCOUNTER 2024-07-07 12:21 | Outpatient (CLI) | payer MEDICAID, SELFPAY ==
[2024-07-07 12:29] VITALS: BP 107/59; PULSE 65; RESP 16; TEMP 36.1; O2SAT 99
[2024-07-07] MEDS: Ertapenem Sod 1 GM/10 ML Vial IM (13:08)
== END 2024-07-07 23:59 | disposition home or self-care (01) ==
LOC: MEDOUTP 12:21
PROVIDERS: PCP Nurse Practitioner Family; Referring Provider Internal Medicine; Visit Provider Internal Medicine
DX: N39.0 Urinary tract infection, site not specified (principal)
CPT/HCPCS: 96372

== ENCOUNTER 2024-07-10 12:39 | Outpatient (CLI) | payer MEDICAID, SELFPAY ==
[2024-07-10 12:46] VITALS: BP 118/63; PULSE 91; RESP 16; TEMP 35.8; O2SAT 97
[2024-07-10] MEDS: Ertapenem Sod 1 GM/10 ML Vial IM (13:18)
== END 2024-07-10 23:59 | disposition home or self-care (01) ==
LOC: MEDOUTP 12:39
PROVIDERS: PCP Nurse Practitioner Family; Referring Provider Internal Medicine; Visit Provider Internal Medicine
DX: N39.0 Urinary tract infection, site not specified (principal)
CPT/HCPCS: 96372

== ENCOUNTER 2024-07-11 12:31 | Outpatient (CLI) | payer MEDICAID, SELFPAY ==
[2024-07-11 12:40] VITALS: BP 154/83; PULSE 94; RESP 16; TEMP 35.5; O2SAT 98; BMI 26.6
[2024-07-11] MEDS: Ertapenem Sod 1 GM/10 ML Vial IM (12:56)
== END 2024-07-11 23:59 | disposition home or self-care (01) ==
LOC: MEDOUTP 12:32
PROVIDERS: PCP Nurse Practitioner Family; Referring Provider Internal Medicine; Visit Provider Internal Medicine
DX: N39.0 Urinary tract infection, site not specified (principal); Z16.12 Extended spectrum beta lactamase (ESBL) resistance
CPT/HCPCS: 96372

== ENCOUNTER 2024-08-01 13:45 | Emergency (ER) | payer MEDICAID, SELFPAY ==
[2024-08-01 13:46] VITALS: BP 174/100; PULSE 120; RESP 18; TEMP 37.1; O2SAT 99; BMI 27.9
--- NOTE | 2024-08-01 14:07 | ED.VIS.GI ---
HPI HPI - GI History of Present Illness Chief Complaint: Nausea/Vomiting/Diarrhea Informant: patient Abdominal Pain/Flank Pain Onset: Yesterday Context: Sudden Onset Timing: Continuous Quality: Cramping Location: RUQ, RLQ and Right Flank Worsened by: Food Relieved by: Nothing Nausea/Vomiting/Emesis GI Symptom: Positive for Nausea and Vomiting Onset: Yesterday Quality: Positive for Nonbilious; Negative for Blood streaks, Coffee ground or Hematemesis Diarrhea/Melena/Hematochezia GI Symptom: Positive for Diarrhea; Negative for Melena or Hematochezia Onset: Yesterday Stool Quality: Positive for Watery Associated Symptoms Associated Symptoms: Negative for Dysuria, Frequency or Hematuria Narrative Narrative: Patient presents with abdominal pain, nausea, vomiting, and diarrhea that began yesterday. Patient states began rather suddenly. Patient describes her pain as cramping. Patient states her pain is worse on the right side of her abdomen. Patient states her pain is worse with eating. Patient denies any hematemesis or coffee-ground emesis. Patient states her diarrhea is watery. Patient denies any melena or hematochezia. Patient denies any dysuria, frequency, or hematuria. Patient admits to some subjective chills but denies any fevers. Patient admits to a mild cough. Patient states her pain radiates into her back. [facility] Medical History ESBL (extended spectrum beta-lactamase) producing bacteria infection Generalized weakness Candidiasis of breast Colitis Debility PTSD (post-traumatic stress disorder) Closed compression fracture of L3 vertebra Hypokalemia Colitis BiPAP (biphasic positive airway pressure) dependence Coronary artery disease L5 vertebral fracture On home oxygen therapy Rheumatoid arthritis Sleep apnea Smoker DVT (deep venous thrombosis) Seizures Amputation toe Psychiatric disorder Ischemic cardiomyopathy Diabetes type 2, uncontrolled Essential hypertension Substance abuse Alcohol abuse Depression Osteoporosis GERD (gastroesophageal reflux disease) Pulmonary embolism Myocardial infarct Pericardial effusion Hypoxemia Acute dyspnea Aftercare following surgery of the circulatory system Hx of fracture of humerus Toe amputee Hyperlipidemia CHF (congestive heart failure) CAD (coronary artery disease), stebbins coronary artery Home Medications ?Medication ?Instructions ?Recorded ?Last Taken ?Type aspirin 81 mg capsule 81 mg PO DAILY heart health 08/10/22 02/01/23 History clopidogrel 75 mg tablet 75 mg PO DAILY anti platelet #30 02/03/23 02/13/24 10:00 Rx tabs 75 mg pantoprazole 40 mg tablet,delayed 40 mg PO DAILY reflux 04/18/23 02/13/24 10:00 History release 40 mg sacubitril 24 mg-valsartan 26 mg 1 tab PO BID 30 days #60 tabs 05/07/23 02/13/24 22:00 Rx tablet (Entresto) 1 TAB atorvastatin 80 mg tablet 80 mg PO QHS cholesterol 12/29/23 Unknown History gabapentin 300 mg capsule 300 mg PO TID 12/29/23 02/13/24 08:00 History 300 mg insulin glargine 100 unit/mL (3 40 unit subcut DAILY dm 12/29/23 02/13/24 07:00 History mL) subcutaneous pen (Lantus 40 units Solostar U-100 Insulin) insulin lispro 100 unit/mL 1 sliding scale dose subcut TIDCM 12/29/23 Unknown History subcutaneous half-unit pen DIC 2%/RINKU 6%/LIDOC 2% IN 1 - 2 pump subdermal Q6H PRN FOR 02/14/24 Unknown History saltsable FEET cholecalciferol (vitamin D3) 1,250 1,250 mcg PO WE 02/14/24 Unknown History mcg (50,000 unit) tablet spironolactone 25 mg tablet 25 mg PO DAILY water pill 30 days 02/17/24 02/13/24 10:00 Rx #0 tabs 12.5 mg carvedilol 3.125 mg tablet 6.25 mg (2 x 3.125 mg) PO BID 02/19/24 Unknown Rx blood pressure 30 days #0 tabs ergocalciferol (vitamin D2) 1,250 1,250 mcg PO We@1000 #0 caps 02/19/24 Unknown Rx mcg (50,000 unit) capsule (Vitamin D2) insulin glargine 100 unit/mL (3 20 unit (0.2 mL) subcut QPM 30 02/19/24 02/13/24 22:00 Rx mL) subcutaneous pen (Lantus days #0 mL 24 units Solostar U-100 Insulin) escitalopram oxalate 20 mg tablet 20 mg PO DAILY depression 06/29/24 Unknown History furosemide 20 mg tablet 20 mg PO DAILY water pill 06/29/24 Unknown History gabapentin 400 mg capsule 400 mg 3XD 06/29/24 Unknown History midodrine 2.5 mg tablet mg 06/29/24 Unknown History polyethylene glycol 3350 17 17 g PO BID PRN constipation 06/29/24 Unknown History gram/dose oral powder (Miralax) sennosides 8.6 mg-docusate sodium 2 tab PO BID PRN constipation 06/29/24 Unknown History 50 mg tablet (Stimulant Laxative Plus) tizanidine 4 mg tablet 4 mg PO 3XD spasm 06/29/24 Unknown History haloperidol 1 mg tablet 1 mg PO TID #21 tabs 07/03/24 Unknown Rx hydrocodone-acetaminophen 5-325mg 1 tab PO Q6H PRN PRN Pain 3 days 08/01/24 Unknown Rx 5mg-325mg #10 TABLETS nitrofurantoin 100 mg PO Q12 #14 CAPSULES 08/01/24 Unknown Rx monohydrate/macrocrystals 100 mg capsule ondansetron HCl 4 mg tablet 4 mg PO Q8H nausea #10 tabs 08/01/24 Unknown Rx Allergy/AdvReac Type Severity Reaction Status Date / Time latex Allergy Hives Verified 08/01/24 13:46 Family History Mother Thyroid disorder Diabetes Hypertension Grandmother Diabetes Uncle Diabetes Aunt Diabetes Other Heart disease Surgical History History of cholecystectomy History of appendectomy History of cholecystectomy Social History household members: spouse and children housing: house Smoking Status: Current every day smoker tobacco type: cigarettes alcohol intake: never substance use type: marijuana what type of physical activity do you participate in: none do you feel safe at home: Yes ROS ROS ED Constitutional Constitutional ED: Reports chills; Denies fever(s) Eyes Eyes: Denies blurry vision or change in vision ENT ENT ED: Denies rhinorrhea or sore throat Cardiovascular Cardiovascular: Denies chest pain or palpitations Respiratory/Chest Respiratory/Chest: Reports cough; Denies dyspnea Gastrointestinal Gastrointestinal: Reports abdominal pain, diarrhea, nausea and vomiting; Denies melena Genitourinary Genitourinary ED: Denies dysuria or hematuria Musculoskeletal Musculoskeletal: Reports back pain; Denies neck pain Integumentary Denies abscess or rash Neurologic Neurologic: Denies headache(s) or weakness Allergic/Immunologic Allergic/Immunologic ED: Denies mouth swelling or urticaria EXAM Physical Exam Const Vital Signs: 08/01/24 13:46 08/01/24 15:46 08/01/24 17:00 Temperature 98.7 F 98.4 F Temperature Source Oral Oral Pulse Rate 120 H 78 64 Respiratory Rate 18 16 18 Blood Pressure 174/100 H 141/76 H 136/78 H Blood Pressure Mean 124 97 97 Pulse Ox 99 98 97 Oxygen Delivery Method Room Air Room Air Room Air 08/01/24 19:00 08/01/24 20:58 Temperature Temperature Source Pulse Rate 109 H 101 H Respiratory Rate 18 22 H Blood Pressure 134/76 H Blood Pressure Mean 95 Pulse Ox 98 99 Oxygen Delivery Method Room Air Room Air Positive well nourished and well developed General Appearance ED: well developed and NAD HEENT Reports moist mucous membranes Neck supple and no JVD Resp normal respiratory effort and clear to auscultation bilaterally Cardio regular rhythm Rate: tachycardic GI Palpation: soft, tender epigastric, LLQ, RLQ, LUQ, RUQ, periumbilical and suprapubic and rebound tenderness present; Negative for guarding Neuro CN's II-XII intact bilaterally, moves all extremities and no sensory deficits noted Sensorium / Orientation: alert Motor Exam: strength 5/5 throughout Psych mental status grossly normal MDM MDM MDM Narrative Medical decision making narrative: Differential diagnosis includes gastroenteritis, viral illness, pancreatitis, diverticulitis, bowel obstruction, perforation, diabetic ketoacidosis, urinary tract infection, dehydration, and electrolyte abnormality. CBC will be obtained to assess for leukocytosis and anemia. Comprehensive metabolic profile will be obtained to assess for electrolyte abnormality, hepatic function, and renal function. Lipase will be obtained to assess for pancreatitis. Urinalysis will be obtained to assess for urinary tract infection. CT scan of the abdomen and pelvis will be obtained to assess for bowel obstruction, perforation, and pancreatitis. Lab Data Attestation: I reviewed the patient's lab results. Lab results narrative: CBC was reviewed. There is a slight leukocytosis of 13.3. The remainder is within normal limits. Comprehensive metabolic profile was reviewed. Glucose was elevated at 410. Sodium was low at 132 and chloride was low at 93. The remainder was essentially within normal limits. Lipase was reviewed and was normal at 17. Urinalysis was reviewed. Leukocyte esterase was 500 with 5100 white blood cells and 4+ bacteria. Serum acetone level was reviewed and was negative. Labs: Laboratory Results - last 24 hr 08/01/24 08/01/24 08/01/24 14:10 15:15 16:15 WBC 13.3 H RBC 4.91 Hgb 13.6 Hct 40.8 MCV 83.1 MCH 27.7 MCHC 33.3 RDW Std Deviation 42.2 RDW Coeff of [place] 14.1 Plt Count 338 MPV 9.9 Immature Gran % (Auto) 0.300 Neut % (Auto) 83.9 H Lymph % (Auto) 11.7 L [place] % (Auto) 3.4 Eos % (Auto) 0.2 Baso % (Auto) 0.5 Absolute Neuts (auto) 11.1 H Absolute Lymphs (auto) 1.55 Nucleated RBC % 0 Sodium 132 L Potassium 3.5 Chloride Direct 93 L Carbon Dioxide 22.7 Anion Gap 17 H BUN 9 Creatinine 0.79 Estim Creat Clear Calc 91.16 Est GFR (MDRD) Non-Af 90 BUN/Creatinine Ratio 11.8 Glucose 410 H Calcium 9.8 Total Bilirubin 1.23 AST 24 ALT 12 Alkaline Phosphatase 162 H Total Protein 8.1 Albumin 4.2 Globulin 4.0 Albumin/Globulin Ratio 1.0 Lipase 17 Urine Color Yellow Urine Clarity Cloudy Urine pH 6.5 Ur Specific [place] 1.010 Urine Protein 100 H Urine Glucose (UA) 1000 H Urine Ketones Negative Urine Occult Blood 50 H Urine Nitrite Negative Urine Bilirubin Negative Urine Urobilinogen Normal Ur Leukocyte Esterase 500 H Urine RBC 0-5 SEEN Urine WBC 50-100 SEEN Ur Squamous Epith Cells 0-5 SEEN Urine Bacteria 4+ Urine Mucus 0 SEEN Urine Yeast 1+ Acetone Level NEGATIVE POC Glucose 08/01/24 20:21 WBC RBC Hgb Hct MCV MCH MCHC RDW Std Deviation RDW Coeff of [place] Plt Count MPV Immature Gran % (Auto) Neut % (Auto) Lymph % (Auto) [place] % (Auto) Eos % (Auto) Baso % (Auto) Absolute Neuts (auto) Absolute Lymphs (auto) Nucleated RBC % Sodium Potassium Chloride Direct Carbon Dioxide Anion Gap BUN Creatinine Estim Creat Clear Calc Est GFR (MDRD) Non-Af BUN/Creatinine Ratio Glucose Calcium Total Bilirubin AST ALT Alkaline Phosphatase Total Protein Albumin Globulin Albumin/Globulin Ratio Lipase Urine Color Urine Clarity Urine pH Ur Specific [place] Urine Protein Urine Glucose (UA) Urine Ketones Urine Occult Blood Urine Nitrite Urine Bilirubin Urine Urobilinogen Ur Leukocyte Esterase Urine RBC Urine WBC Ur Squamous Epith Cells Urine Bacteria Urine Mucus Urine Yeast Acetone Level POC Glucose 225 H Radiography Diagnostic Testing: Clinical Impression(s) from Imaging Studies Abdomen/Pelvis CT 08/01/24 14:28 IMPRESSION: 1. Hypodense lesion in the right hepatic lobe. Consider cyst or hemangioma. 2. Status post cholecystectomy. 3. Small splenule. 4. Bilateral solid adrenal gland nodules are redemonstrated, stable. 5. Left renal cyst. 6. Small amount of air in the anterior urinary bladder. Can not exclude infection. This may also be iatrogenic. 7. Diverticulosis. 8. Severe atherosclerotic calcific disease, aortoiliac and visceral arteries. High index of suspicion for tight stenosis involving the origin of the left renal artery. 9. Old compression abnormalities at L3 and L5. Reading Location: [place] [id number] CT scan of the abdomen and pelvis was obtained. There is a small amount of air in the anterior urinary bladder. This may be due to the urinary tract infection. There is a hypodense lesion in the right hepatic lobe. This could be cyst or hemangioma. There is atherosclerotic disease of the aortic iliac and visceral arteries. There could be stenosis of the left renal artery. There are no other acute abnormalities noted. Management Discussion w/another healthcare provider: medical social worker/Case management Treatment and Re-Evaluation :: Patient was given IV fluids, morphine, and Zofran. Patient was given a repeat dose of morphine and Zofran. Urine culture was ordered. Patient was started on Rocephin. Patient was given a repeat bolus of normal saline. Patient was given Humalog. Repeat BGT after the Humalog and IV fluids was 225. Patient was advised of her findings. Patient requested admission to the hospital however, I do not feel that there is an indication for admission. medical social worker was in to evaluate the patient for possible home health needs. Patient told the vp digital marketing social media and crm that she just needed to be admitted to the hospital so her daughter does not have to take care of her at home. Patient told vp digital marketing social media and crm she does not need any home health needs at this time. Patient was given prescriptions for Zofran, Macrobid, and a short course of Rayle. Patient was instructed to drink plenty of fluids. Patient was instructed continue her insulin as scheduled. Patient was instructed to follow-up with her primary care physician in 3 to 5 days. Discharge Plan Triage Chief Complaint: Nausea/Vomiting/Diarrhea ED Provider: Riccardo Hillman Dx/Rx/DC Orders Clinical Impression: Urinary tract infection, Hyperglycemia due to diabetes mellitus, Leukocytosis Instructions: ED Diabetic Hyperglycemia, ED Cystitis Female Adult Prescriptions: New hydrocodone-acetaminophen 5-325 mg tablet 1 tab PO Q6H PRN PRN (Reason: Pain) 3 Days Qty: 10 0RF nitrofurantoin monohyd/m-cryst 100 mg capsule 100 mg PO Q12 Qty: 14 0RF Continued ondansetron HCl 4 mg tablet 4 mg PO Q8H Qty: 10 0RF No Action pantoprazole 40 mg tablet,delayed release (DR/EC) 40 mg PO DAILY aspirin 81 mg Capsule 81 mg PO DAILY clopidogrel 75 mg Tablet 75 mg PO DAILY Qty: 30 0RF Patient Comments: patient stated pretty sure I still take that sacubitril-valsartan [Entresto] 24-26 mg Tablet 1 tab PO BID 30 Days Qty: 60 0RF insulin glargine [Lantus Solostar U-100 Insulin] 100 unit/mL (3 mL) insulin pen 40 unit subcut DAILY insulin lispro 100 unit/mL insulin pen, half-unit 1 sliding scale dose subcut TIDCM atorvastatin 80 mg tablet 80 mg PO QHS gabapentin 300 mg Capsule 300 mg PO TID tizanidine 4 mg tablet 4 mg PO 3XD gabapentin 400 mg capsule 400 mg 3XD midodrine 2.5 mg tablet furosemide 20 mg tablet 20 mg PO DAILY escitalopram oxalate 20 mg tablet 20 mg PO DAILY sennosides-docusate sodium [Stimulant Laxative Plus] 8.6-50 mg Tablet 2 tab PO BID PRN (Reason: constipation) polyethylene glycol 3350 [Miralax] 17 gram/dose powder 17 g PO BID PRN (Reason: constipation) haloperidol 1 mg tablet 1 mg PO TID Qty: 21 0RF Rx Instructions: for nausea cholecalciferol (vitamin D3) 1,250 mcg (50,000 unit) tablet 1,250 mcg PO WE DIC 2%/RINKU 6%/LIDOC 2% IN saltsable cream 1 - 2 pump subdermal Q6H PRN (Reason: FOR FEET) spironolactone 25 mg tablet 25 mg PO DAILY 30 Days Qty: 0 0RF ergocalciferol (vitamin D2) [Vitamin D2] 1,250 mcg (50,000 unit) Capsule 1,250 mcg PO We@1000 Qty: 0 0RF carvedilol 3.125 mg tablet 6.25 mg PO BID 30 Days Qty: 0 0RF Rx Instructions: Hold for heart less than 50 or systolic blood pressure less than 100 mmHg. insulin glargine [Lantus Solostar U-100 Insulin] 100 unit/mL (3 mL) insulin pen 20 unit subcut QPM 30 Days Qty: 0 0RF Rx Instructions: Hold if glucose less than 130 mg/dl Primary Care Provider: Zohreh Pratt Referrals: Zohreh Pratt, ELECTRICAL/INSTRUMENT TECHNICIAN-C [Primary Care Provider] - 3-5 Days Print Language: Spanish Disposition Disposition: Home, Self Care Discharge Date/Time: 08/01/24 21:50
--- NOTE | 2024-08-01 14:28 | CT_ITS ---
PROCEDURE: CT ABDOMEN AND PELVIS WITH INTRAVENOUS CONTRAST REASON FOR EXAM: ABDOMINAL PAIN. TECHNIQUE: Contiguous axial scans of 3.75 mm slice thicknesses. Sagittal and coronal reconstruction images were obtained. One or more dose reduction techniques were used (e.g., automated exposure control, adjustment of mA and/or kv according to patient size, use of iterative reconstruction technique). IV CONTRAST: Isovue-300, 95 mL. COMPARISON: 07/02/2024 CT abdomen and pelvis FINDINGS: Lung bases: Clear Liver: A 1.2 cm hypodense nodule in the right hepatic lobe, axial image 30. Gallbladder: Surgically absent Spleen: Unremarkable except for a small splenule measuring 1.2 cm on axial image 40. Pancreas: Unremarkable. Adrenals: Solid right adrenal gland nodule, axial image 39 measuring 1.9 x 1.5 cm. A solid left adrenal gland nodule, axial image 33 measuring 1.9 x 1.6 cm. Kidneys: Left superior pole cyst measuring 2.5 cm in diameter. Bladder: Small amount of air in the anterior aspect. Reproductive Organs: Unremarkable. Bowel: Mild diverticulosis without signs of diverticulitis, sigmoid colon. Postoperative findings in the ileocecal region. Appendix: Normal. Lymph nodes: No suspicious lymph node enlargement. Vasculature: Severe atherosclerotic calcific disease involving the aorto iliac and visceral arteries. In particular, tight stenosis is suspected involving the origin of the left renal artery due to calcified atheromatous plaque. Eccentric intraluminal thrombus in the aorta on axial image 62. Phleboliths in the pelvis. Peritoneum / Retroperitoneum: No ascites. No free air. Anterior abdominal wall: Unremarkable. Bones: Anterior wedging of L3 and L5 vertebral bodies. Schmorl's node formation involving the superior endplate of L4. Suspected bone island at the superior endplate of T12. Multilevel degenerative disc disease. CT/Abdomen/Pelvis W IV Cont ONLY IMPRESSION: 1. Hypodense lesion in the right hepatic lobe. Consider cyst or hemangioma. 2. Status post cholecystectomy. 3. Small splenule. 4. Bilateral solid adrenal gland nodules are redemonstrated, stable. 5. Left renal cyst. 6. Small amount of air in the anterior urinary bladder. Can not exclude infec tion. This may also be iatrogenic. 7. Diverticulosis. 8. Severe atherosclerotic calcific disease, aortoiliac and visceral arteries. High index of suspicion for tight stenosis involving the origin of the left renal artery. 9. Old compression abnormalities at L3 and L5. Reading Location: [place] [id number]
[2024-08-01 14:43] LABS: Absolute Lymphocyte Count 1.55 X10^3/uL (0.83-4.51); Absolute Neutrophil Count 11.1 X10^3/uL (2.0-7.7); Basophil# 0.07 X10^3/uL; Basophil% 0.5 % (0-1); Eosinophil# 0.02 X10^3/uL; Eosinophils% 0.2 % (0-5); Hematocrit 40.8 % (37-47); Hemoglobin 13.6 g/dL (12.0-15.0); Lymphocyte # 1.55 X10^3/ul (0.83-4.51); Lymphocyte % 11.7 % (19-41); Mean Corp Hgb Conc 33.3 g/dL (32-36); Mean Corpuscular Hgb 27.7 pg (27.0-32.0); Mean Corpuscular Volume 83.1 fL (81-99); Mean Platelet Vol. 9.9 fl (6.2-12.0); Monocyte# 0.45 X10^3/uL; Monocyte% 3.4 % (0-10); NRBC Flagged by Analyzer 0 % (0-5); Neutrophil # 11.14 X10^3/uL (2.7-7.7); Neutrophil % 83.9 % (47-70); Platelet Count 338 K/mm3 (150-450); RBC Distribution Width CV 14.1 % (11.6-14.6); RBC Distribution Width SD 42.2 fl (35.1-43.9); Red Blood Count 4.91 M/mm3 (4.2-5.4); White Blood Count 13.3 K/mm3 (4.4-11.0)
[2024-08-01] MEDS: 0.9% Normal Saline (1000mL) 1,000 ML 999 ML IV (14:55)
[2024-08-01] MEDS: Morphine 4 MG/ML Syringe IV (14:56)
[2024-08-01] MEDS: Ondansetron 4 MG/2 ML Vial IV ×2 (14:56→17:14)
[2024-08-01 15:05] LABS: AST(SGOT) 24 U/L (<=31); Alanine Aminotransfer ALT/SGPT 12 U/L (<=34); Albumin, Serum 4.2 g/dL (3.5-5.0); Alkaline Phosphatase 162 U/L (35-104); Anion Gap 17 (5-15); BUN 9 mg/dL (4-19); BUN/Creat Ratio 11.8 RATIO (10-20); Calcium 9.8 mg/dL (7.6-11.0); Carbon Dioxide 22.7 mmol/L (22.0-29.0); Chloride 93 mmol/L (96-108); Creatinine, Serum 0.79 mg/dL (0.70-1.20); EST Glomerular Filtration Rate 90 (>60); Estimated Creatinine Clearance 91.16 ml/min; Glucose 410 mg/dL (70-99); Lipase 17 U/L (13-75); Potassium 3.5 mmol/L (3.3-5.1); Protein, Total 8.1 g/dL (5.9-8.4); Sodium Level 132 mmol/L (133-145); Total Bilirubin 1.23 mg/dL (0.00-1.30)
[2024-08-01 15:24] LABS: Mucous, Urine 0 SEEN /hpf (<or=2+)
[2024-08-01 15:35] LABS: Color, Urine Yellow (Yellow); Glucose, Dipstick 1000 mg/dl (Normal); Ketone-Dipstick Negative (Negative); Leukocyte Esterase-Dipstick 500 /ul (Negative); Nitrite-Dipstick Negative (Negative); Occult Blood-Urine 50 /ul (Negative); Protein-Dipstick 100 mg/dl (Negative); Urine Bilirubin Dipstick Negative (Negative); Urine Clarity Cloudy (Clear); Urine Urobilinogen Normal (Normal); Urine pH 6.5 (5.0 - 8.0)
[2024-08-01 15:46] VITALS: BP 141/76; PULSE 78; RESP 16; O2SAT 98
[2024-08-01 16:06] LABS: White Blood Cells 50-100 SEEN /hpf (0-5)
[2024-08-01 16:07] LABS: Bacteria 4+ /hpf (None Seen); Red Blood Cells-Urine 0-5 SEEN /hpf (0-5); Squamous Epithelial Cells - UA 0-5 SEEN /hpf (5-10); Yeast-Urine 1+ /hpf (None Seen)
[2024-08-01] MEDS: Ceftriaxone 1 GM/50 ML BAG IV (16:45)
[2024-08-01 17:00] VITALS: BP 136/78; PULSE 64; RESP 18; TEMP 36.9; O2SAT 97
[2024-08-01] MEDS: 0.9% Normal Saline (1000mL) 1,000 ML 1000 ML IV (18:36)
[2024-08-01] MEDS: Insulin Lispro 100 UNIT/ML INSULN.PEN 10 UNIT SC (18:36)
[2024-08-01 19:00] VITALS: BP 134/76; PULSE 109; RESP 18; O2SAT 98
--- NOTE | 2024-08-01 20:16 | ED.RN ---
Got verbal permission per pt update daughter Ashlee that is not listed in contacts. Daughter provided with update on pt's status and plan of care by this RN.
[2024-08-01 20:39] LABS: Bedside Glucose 225 mg/dL (74-106)
[2024-08-01] MEDS: Metoclopramide 10 MG/2 ML Vial IV (20:55)
[2024-08-01 20:58] VITALS: PULSE 101; RESP 22; O2SAT 99
--- NOTE | 2024-08-01 21:16 | CM.ED ---
Social work Reason for referral: home health needs Referral source: Dr. Hillman This SW was approached by Dr. Hillman with request to meet with patient due to patient's statement of patient's daughter being unable to care for patient at home. This SW entered patient's room, introducing self and role at [facility]. Patient immediately broke down and began crying, stating being unable to go home. Patient shared that patient's 20 year old daughter, Ashlee, should not have to care for patient and patient requested SW to admit patient for a night or two until patient began to feel better. SW advised patient that doctors and nurses were checking to make sure there was no medical reason for patient to be admitted and SW explored possible barriers in place. Patient shared through tears that patient was still nauseous and needed to be admitted because of that. Patient stated that there were no concerns with patient's home life and no concerns with patient's daughter and daughter's boyfriend; patient simply believes that patient's daughter should not have to take care of patient when patient is sick. Patient denied further needs at this time and asked SW to leave the room. SW updated nursing and Dr. Hillman, who stated medication could be sent home with patient for nausea. Cristiana Jacobson, POLICE ACADEMY PROGRAM COORDINATOR, GEOGRAPHIC INFORMATION SCIENTIST
--- NOTE | 2024-08-01 21:24 | ED.RN ---
Contacted pt's daughter to inform her pt is being discharged and will need a ride. 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 Daughter updated on pt recently receiving nausea/pain meds, questions/concerns answered.
== END 2024-08-01 21:50 | disposition home or self-care (01) ==
PROVIDERS: Emergency Provider Emergency Medicine; PCP Nurse Practitioner Family; Visit Provider Emergency Medicine
DX: N39.0 Urinary tract infection, site not specified (principal); I11.0 Hypertensive heart disease with heart failure; I50.9 Heart failure, unspecified; E11.65 Type 2 diabetes mellitus with hyperglycemia; R19.7 Diarrhea, unspecified; E78.5 Hyperlipidemia, unspecified; D72.829 Elevated white blood cell count, unspecified; I25.5 Ischemic cardiomyopathy; R11.2 Nausea with vomiting, unspecified; F17.210 Nicotine dependence, cigarettes, uncomplicated; F12.90 Cannabis use, unspecified, uncomplicated; Z90.49 Acquired absence of other specified parts of digestive tract; Z86.711 Personal history of pulmonary embolism; I25.2 Old myocardial infarction; K21.9 Gastro-esophageal reflux disease without esophagitis; Z99.89 Dependence on other enabling machines and devices
CPT/HCPCS: 74177; 80053; 81001; 82009; 82962; 83690; 85025; 87086; 87088; 87186; 96361; 96365; 96366; 96375; 96376; 99285; Q9967; A4216; J2405

== ENCOUNTER 2024-08-26 10:05 | Inpatient (IN) | payer MEDICAID, SELFPAY ==
[2024-08-26] VITALS (19 sets, daily range): BP systolic 108–175; BP diastolic 66–112; PULSE 89–113; RESP 13–30; TEMP 36.3–36.6; O2SAT 93–100; BMI 28.8; BMI 26.9
--- NOTE | 2024-08-26 10:40 | VDLE_ITS ---
Reason For Study Reason For Study: LLE PAin/ Swelling RIGHT LEFT CFV is compressible, spontaneous, phasic, competent GSV is normal. and demonstrates normal augmentation. CFV is compressible, spontaneous, phasic, competent, Incidental Finding: and demonstrates normal augmentation. Stent noted at PROX SFA. FV is compressible, spontaneous, phasic, competent SFA PROX - 17.8/0.0 xm/sec. and demonstrates normal augmentation. SFA MID - Unable to visualize flow in pulsed wave or POP V is compressible, spontaneous, phasic, competent color doppler. and demonstrates normal augmentation. Procedure T/P Trunk is compressible. This is a venous duplex using B-mode, color flow and PTV is compressible. spectral Doppler. LT PerV is compressible. Exam performed portable in ED. The exam was diagnostic. A preliminary report was called and/or faxed to Dr. Abrams. VL/Venous Duplex US, Unilateral Interpretation Summary Deep veins of the left lower extremity are patent and compressible segmentally. There is no evidence of left lower extremity deep vein thrombosis. The left great saphenous vein appears patent an d compressible segmentally. Incidental finding, right SFA stent occlusion Ordering Physician: Jesse Abrams [facility] Performed By: Héctor Ayoub RVT
--- NOTE | 2024-08-26 10:40 | RAD_ITS ---
EXAM: XR Chest, 1 View CLINICAL INDICATION: CHF TECHNIQUE: Frontal view of the chest. COMPARISON: No relevant prior studies available. FINDINGS: LUNGS AND PLEURAL SPACES: Unremarkable. No consolidation. No pneumothorax. HEART: Unremarkable. No cardiomegaly. MEDIASTINUM: Unremarkable. Normal mediastinal contour. BONES/JOINTS: Unremarkable. No acute fracture. RAD/Chest 1 View (Portable) IMPRESSION: No acute cardiopulmonary process. Reading Location: [facility]
--- NOTE | 2024-08-26 10:41 | EKG12_ITS ---
Test Reason : CHRONIC PAIN Blood Pressure : */* mmHG Vent. Rate : 103 BPM Atrial Rate : 103 BPM P-R Int : 206 ms QRS Dur : 124 ms QT Int : 340 ms P-R-T Axes : 41 -46 90 degrees QTcB Int : 445 ms Sinus tachycardia Left axis deviation Minimal voltage criteria for LVH, may be normal variant ( Brian product ) Septal infarct (cited on or before 26-Aug-2021) ST & T wave abnormality, consider lateral ischemia Abnormal ECG Confirmed by TIP HERNANDEZ, LORETA ([id number]), newspaper managing editor RIKY HOANG ([id number]) on 08/27/2024 8:30:33 AM Referred By: Confirmed By: LORETA WHELAN MD
--- NOTE | 2024-08-26 10:42 | EX.ED.DYSGE1 ---
HPI <Dr. Jesse Abrams DO - Last Filed: 08/26/24 15:33> History of Present Illness Chief Complaint: Lower Extremity Injury Informant: patient Narrative Narrative: 54-year-old female presenting to the emergency room with pain and swelling of the left leg. Patient states that she noticed swelling beginning last Sunday and the pain became severe last night to the point where she was crying. Patient states that the last time this happened to her she was admitted into the hospital but does not know what happened. She states that she cannot tell me what medication she is on but that everything in the computer should be correct. She sees Ama Hilario for primary care and unfortunately their system does not connect to ours. She does not know if she is on a blood thinner. I have to pull the history from her limited though it is. She tells me that she had a stent put in her right leg a year ago. She states that she was admitted for the same symptoms maybe a year ago. She states that she lost her toes due to athlete's foot. She does not know if she takes a blood thinner. She is unsure of a history of congestive heart failure but states she has heart problems. [facility] <Dr. Jesse Abrams DO - Last Filed: 08/26/24 15:33> [facility] Medical History ESBL (extended spectrum beta-lactamase) producing bacteria infection Generalized weakness Candidiasis of breast Colitis Debility PTSD (post-traumatic stress disorder) Closed compression fracture of L3 vertebra Hypokalemia Colitis BiPAP (biphasic positive airway pressure) dependence Coronary artery disease L5 vertebral fracture On home oxygen therapy Rheumatoid arthritis Sleep apnea Smoker DVT (deep venous thrombosis) Seizures Amputation toe Psychiatric disorder Ischemic cardiomyopathy Diabetes type 2, uncontrolled Essential hypertension Substance abuse Alcohol abuse Depression Osteoporosis GERD (gastroesophageal reflux disease) Pulmonary embolism Myocardial infarct Pericardial effusion Hypoxemia Acute dyspnea Aftercare following surgery of the circulatory system Hx of fracture of humerus Toe amputee Hyperlipidemia CHF (congestive heart failure) CAD (coronary artery disease), [place] coronary artery Home Medications ?Medication ?Instructions ?Recorded ?Last Taken ?Type aspirin 81 mg capsule 81 mg PO DAILY heart health 08/10/22 02/01/23 History clopidogrel 75 mg tablet 75 mg PO DAILY anti platelet #30 02/03/23 02/13/24 10:00 Rx tabs 75 mg pantoprazole 40 mg tablet,delayed 40 mg PO DAILY reflux 04/18/23 02/13/24 10:00 History release 40 mg sacubitril 24 mg-valsartan 26 mg 1 tab PO BID 30 days #60 tabs 05/07/23 02/13/24 22:00 Rx tablet (Entresto) 1 TAB atorvastatin 80 mg tablet 80 mg PO QHS cholesterol 12/29/23 Unknown History gabapentin 300 mg capsule 300 mg PO TID 12/29/23 02/13/24 08:00 History 300 mg insulin glargine 100 unit/mL (3 40 unit subcut DAILY dm 12/29/23 02/13/24 07:00 History mL) subcutaneous pen (Lantus 40 units Solostar U-100 Insulin) insulin lispro 100 unit/mL 1 sliding scale dose subcut TIDCM 12/29/23 Unknown History subcutaneous half-unit pen DIC 2%/RINKU 6%/LIDOC 2% IN 1 - 2 pump subdermal Q6H PRN FOR 02/14/24 Unknown History saltsable FEET cholecalciferol (vitamin D3) 1,250 1,250 mcg PO WE 02/14/24 Unknown History mcg (50,000 unit) tablet spironolactone 25 mg tablet 25 mg PO DAILY water pill 30 days 02/17/24 02/13/24 10:00 Rx #0 tabs 12.5 mg carvedilol 3.125 mg tablet 6.25 mg (2 x 3.125 mg) PO BID 02/19/24 Unknown Rx blood pressure 30 days #0 tabs ergocalciferol (vitamin D2) 1,250 1,250 mcg PO We@1000 #0 caps 02/19/24 Unknown Rx mcg (50,000 unit) capsule (Vitamin D2) insulin glargine 100 unit/mL (3 20 unit (0.2 mL) subcut QPM 30 02/19/24 02/13/24 22:00 Rx mL) subcutaneous pen (Lantus days #0 mL 24 units Solostar U-100 Insulin) escitalopram oxalate 20 mg tablet 20 mg PO DAILY depression 06/29/24 Unknown History furosemide 20 mg tablet 20 mg PO DAILY water pill 06/29/24 Unknown History gabapentin 400 mg capsule 400 mg 3XD 06/29/24 Unknown History midodrine 2.5 mg tablet mg 06/29/24 Unknown History polyethylene glycol 3350 17 17 g PO BID PRN constipation 06/29/24 Unknown History gram/dose oral powder (Miralax) sennosides 8.6 mg-docusate sodium 2 tab PO BID PRN constipation 06/29/24 Unknown History 50 mg tablet (Stimulant Laxative Plus) tizanidine 4 mg tablet 4 mg PO 3XD spasm 06/29/24 Unknown History haloperidol 1 mg tablet 1 mg PO TID #21 tabs 07/03/24 Unknown Rx ondansetron HCl 4 mg tablet 4 mg PO Q8H nausea #10 tabs 08/01/24 Unknown Rx hydrocodone-acetaminophen 5-325mg 1 tab PO Q6H PRN Pain 08/26/24 Unknown History 5mg-325mg Allergy/AdvReac Type Severity Reaction Status Date / Time latex Allergy Hives Verified 08/01/24 13:46 Family History Mother Thyroid disorder Diabetes Hypertension Grandmother Diabetes Uncle Diabetes Aunt Diabetes Other Heart disease Surgical History History of cholecystectomy History of appendectomy History of cholecystectomy Social History household members: spouse and children housing: house Smoking Status: Heavy Smoker (>10/day) alcohol intake: never substance use type: marijuana what type of physical activity do you participate in: none do you feel safe at home: Yes ROS <Dr. Jesse Abrams DO - Last Filed: 08/26/24 15:33> ROS ED Constitutional Constitutional ED: Denies chills, fever(s) or weight loss Eyes Eyes: Denies change in vision or diplopia ENT ENT ED: Denies ear pain, rhinorrhea or sore throat Cardiovascular Cardiovascular: Denies chest pain, orthopnea, palpitations or racing heartbeat Respiratory/Chest Respiratory/Chest: Denies cough, dyspnea or orthopnea Gastrointestinal Gastrointestinal: Denies abdominal pain, diarrhea, nausea or vomiting Genitourinary Genitourinary ED: Denies dysuria, hematuria or urinary frequency Musculoskeletal Musculoskeletal: Reports other Details: Left leg pain swelling ; Denies arthralgias or myalgias Integumentary Denies abscess or rash Neurologic Neurologic: Denies headache(s) or weakness Psychiatric Psychiatric: Denies anxiety, depression, suicidal ideation or suicidal thoughts Endocrine Endocrinology: Denies polydipsia, polyphagia or polyuria Allergic/Immunologic Allergic/Immunologic ED: Denies mouth swelling, tongue swelling or urticaria EXAM <Dr. Jesse Abrams, DO - Last Filed: 08/26/24 15:33> Physical Exam Narrative Exam Narrative: Patient is intermittently crying. Sometimes she cries while speaking other times she can speak normally. She is moving the left leg Const Vital Signs: 08/26/24 10:08 08/26/24 10:14 08/26/24 11:14 Temperature 98 F 98 F 98 F Temperature Source Oral Oral Oral Pulse Rate 113 H 112 H 98 Respiratory Rate 23 H 23 H 27 H Blood Pressure 168/96 H 168/96 H 141/83 H Blood Pressure Mean 120 120 102 Pulse Ox 99 98 99 Oxygen Delivery Method Room Air Room Air Room Air 08/26/24 12:00 08/26/24 12:07 08/26/24 13:00 Temperature 98 F 98 F Temperature Source Oral Oral Pulse Rate 98 91 Respiratory Rate 30 H 13 Blood Pressure 145/82 H 145/82 H 143/85 H Blood Pressure Mean 103 103 104 Pulse Ox 93 98 Oxygen Delivery Method Room Air Room Air 08/26/24 14:00 08/26/24 14:00 08/26/24 14:00 Temperature 98 F Temperature Source Oral Pulse Rate 99 100 Respiratory Rate 18 14 Blood Pressure 131/92 H 150/112 H 131/92 H Blood Pressure Mean 105 124 105 Pulse Ox 100 97 Oxygen Delivery Method Room Air 08/26/24 15:00 08/26/24 15:56 08/26/24 17:56 Temperature 98 F Temperature Source Oral Pulse Rate 98 Respiratory Rate 16 Blood Pressure 115/87 H 130/86 H 109/68 Blood Pressure Mean 96 100 81 Pulse Ox 98 97 96 Oxygen Delivery Method Room Air Room Air Room Air 08/26/24 19:09 08/26/24 20:00 Temperature 98 F Temperature Source Pulse Rate 97 98 Respiratory Rate 16 Blood Pressure 132/74 H 129/69 H Blood Pressure Mean 93 89 Pulse Ox 97 Oxygen Delivery Method Positive well nourished and well developed General Appearance ED: well developed HEENT Reports normocephalic, head/scalp atraumatic and moist mucous membranes Eyes PERRL and EOMs intact bilaterally Neck no lymphadenopathy, supple and no JVD Resp normal respiratory effort and clear to auscultation bilaterally Cardio regular rate, regular rhythm and no murmurs GI normal to inspection, nondistended, normoactive bowel sounds and non-tender Palpation: soft Back/Spine no CVA tenderness and normal ROM Extremity Extremity Narrative: There is some mild edema of the left leg from the tibial tuberosity inferiorly. There appears to be normal color. The foot is swollen mildly but not cellulitic appearing. I do not appreciate any palpable venous cords. The left thigh does not appear swollen. The leg is not white or bluish discoloration. Neuro oriented x3 and CN's II-XII intact bilaterally Sensorium / Orientation: alert Motor Exam: strength 5/5 throughout Psych Mood & Affect: depressed, anxious and tearful Skin no rashes or lesions noted and no wounds <Dr. Vaughn Louise-Frantz, DO - Last Filed: 08/27/24 03:29> Physical Exam Const Vital Signs: 08/26/24 10:08 08/26/24 10:14 08/26/24 11:14 Temperature 98 F 98 F 98 F Temperature Source Oral Oral Oral Pulse Rate 113 H 112 H 98 Respiratory Rate 23 H 23 H 27 H Blood Pressure 168/96 H 168/96 H 141/83 H Blood Pressure Mean 120 120 102 Pulse Ox 99 98 99 Oxygen Delivery Method Room Air Room Air Room Air 08/26/24 12:00 08/26/24 12:07 08/26/24 13:00 Temperature 98 F 98 F Temperature Source Oral Oral Pulse Rate 98 91 Respiratory Rate 30 H 13 Blood Pressure 145/82 H 145/82 H 143/85 H Blood Pressure Mean 103 103 104 Pulse Ox 93 98 Oxygen Delivery Method Room Air Room Air 08/26/24 14:00 08/26/24 14:00 08/26/24 14:00 Temperature 98 F Temperature Source Oral Pulse Rate 99 100 Respiratory Rate 18 14 Blood Pressure 131/92 H 150/112 H 131/92 H Blood Pressure Mean 105 124 105 Pulse Ox 100 97 Oxygen Delivery Method Room Air 08/26/24 15:00 08/26/24 15:56 08/26/24 17:56 Temperature 98 F Temperature Source Oral Pulse Rate 98 Respiratory Rate 16 Blood Pressure 115/87 H 130/86 H 109/68 Blood Pressure Mean 96 100 81 Pulse Ox 98 97 96 Oxygen Delivery Method Room Air Room Air Room Air 08/26/24 19:09 08/26/24 20:00 Temperature 98 F Temperature Source Pulse Rate 97 98 Respiratory Rate 16 Blood Pressure 132/74 H 129/69 H Blood Pressure Mean 93 89 Pulse Ox 97 Oxygen Delivery Method [facility] <Dr. Jesse Abrams, DO - Last Filed: 08/26/24 15:33> [facility] Narrative Medical decision making narrative: Differential diagnosis includes but not limited to DVT lymphedema congestive heart failure peripheral artery disease the next ischemia Patient's white count 7.5 with a hemoglobin of 13.7. Lactic acid is normal at 1.5. BNP is 1489. Duplex ultrasound is negative for DVT. My independent interpretation of the chest x-ray is no acute process. CTA of the leg was obtained and is currently pending. Patient has received pain medication as well as Lasix. History & Record Review Discussion w/independent historian: Patient Lab Data Attestation: I reviewed the patient's lab results. Labs: Laboratory Results - last 24 hr 08/26/24 08/26/24 10:55 19:24 WBC 7.5 RBC 4.93 Hgb 13.7 Hct 40.6 MCV 82.4 MCH 27.8 MCHC 33.7 RDW Std Deviation 40.2 RDW Coeff of Spencer 13.6 Plt Count 225 MPV 9.1 Immature Gran % (Auto) 0.300 Neut % (Auto) 69.6 Lymph % (Auto) 20.9 [place] % (Auto) 5.7 Eos % (Auto) 2.8 Baso % (Auto) 0.7 Absolute Neuts (auto) 5.2 Absolute Lymphs (auto) 1.57 Nucleated RBC % 0 PT 12.3 12.8 INR 0.9 1.0 APTT 26.8 26.5 Sodium 135 Potassium 3.4 Chloride 102 Carbon Dioxide 22.3 Anion Gap 11 BUN 10 Creatinine 0.74 Estim Creat Clear Calc 97.71 Est GFR (MDRD) Non-Af 97 BUN/Creatinine Ratio 14.1 Glucose 315 H Lactic Acid 1.5 Calcium 9.2 Total Bilirubin 0.52 Direct Bilirubin 0.08 AST 27 ALT 14 Alkaline Phosphatase 134 H NT pro BNP II 1489 H Total Protein 7.0 Albumin 3.6 Globulin 3.4 Radiography Diagnostic Testing: Clinical Impression(s) from Imaging Studies Chest X-Ray 08/26/24 10:40 IMPRESSION: No acute cardiopulmonary process. Reading Location: [facility] OF [facility] Venous Doppler Study 08/26/24 10:40 Interpretation Summary Deep veins of the left lower extremity are patent and compressible segmentally. There is no evidence of left lower extremity deep vein thrombosis. The left great saphenous vein appears patent and compressible segmentally. Incidental finding, right SFA stent occlusion Ordering Physician: Jesse Abrams Referring Physician: Ama Leonard Performed By: Héctor Ayoub RVT Lower Extremity CTA 08/26/24 14:00 IMPRESSION: Technically limited study as described. Severe multilevel disease as described level by level above. Interventional radiology consultation may be appropriate. Reading Location: [facility] <Dr. Vaughn Daugherty, DO - Last Filed: 08/27/24 03:29> [facility] Narrative Medical decision making narrative: Differential diagnosis includes but not limited to DVT lymphedema congestive heart failure peripheral artery disease the next ischemia Patient's white count 7.5 with a hemoglobin of 13.7. Lactic acid is normal at 1.5. BNP is 1489. Duplex ultrasound is negative for DVT. My independent interpretation of the chest x-ray is no acute process. CTA of the leg was obtained and is currently pending. Patient has received pain medication as well as Lasix. Dr. Daugherty: Patient was signed out to me by day provider. At the time of signout patient CTA of her left leg was pending. On evaluation of the patient, she is in intractable pain of the left lower extremity. She states that she cannot take care of herself at home. Morphine ordered. CTA of the extremity shows severe multilevel disease. Patient was updated of the results. Again on evaluation, she is in intractable pain. Left lower extremity has mild swelling and pitting edema compared to the right. Compartments soft. Normal color. Foot is partially amputated. Pulses difficult to palpate therefore Doppler used. Patient has dopplerable DT and PT pulses. Given patient's intractable pain, inability to take care of herself/ambulate, and severe multilevel disease patient will warrant admission. Patient is in agreement to the plan. I spoke with the hospitalist service Dr. Posadas. On her chart review, patient has seen Dr. Ng in the past. She will call him for further recommendation. Patient accepted to the PCU. Dr. Posadas recontacted me. Recommendation was to start heparin drip from vascular surgery. Plan is for possible surgery/amputation tomorrow. Patient will be placed in the ICU per vascular recommendations. Impression: 1. Intractable left lower extremity pain 2. PVD 3. CHF Lab Data Labs: Laboratory Results - last 24 hr 08/26/24 08/26/24 10:55 19:24 WBC 7.5 RBC 4.93 Hgb 13.7 Hct 40.6 MCV 82.4 MCH 27.8 MCHC 33.7 RDW Std Deviation 40.2 RDW Coeff of Spencer 13.6 Plt Count 225 MPV 9.1 Immature Gran % (Auto) 0.300 Neut % (Auto) 69.6 Lymph % (Auto) 20.9 [place] % (Auto) 5.7 Eos % (Auto) 2.8 Baso % (Auto) 0.7 Absolute Neuts (auto) 5.2 Absolute Lymphs (auto) 1.57 Nucleated RBC % 0 PT 12.3 12.8 INR 0.9 1.0 APTT 26.8 26.5 Sodium 135 Potassium 3.4 Chloride 102 Carbon Dioxide 22.3 Anion Gap 11 BUN 10 Creatinine 0.74 Estim Creat Clear Calc 97.71 Est GFR (MDRD) Non-Af 97 BUN/Creatinine Ratio 14.1 Glucose 315 H Lactic Acid 1.5 Calcium 9.2 Total Bilirubin 0.52 Direct Bilirubin 0.08 AST 27 ALT 14 Alkaline Phosphatase 134 H NT pro BNP II 1489 H Total Protein 7.0 Albumin 3.6 Globulin 3.4 Radiography Diagnostic Testing: Clinical Impression(s) from Imaging Studies Chest X-Ray 08/26/24 10:40 IMPRESSION: No acute cardiopulmonary process. [facility] Study 08/26/24 10:40 Interpretation Summary Deep veins of the left lower extremity are patent and compressible segmentally. There is no evidence of left lower extremity deep vein thrombosis. The left great saphenous vein appears patent and compressible segmentally. Incidental finding, right SFA stent occlusion Ordering Physician: Jesse Abrams Referring Physician: [facility] Performed By: Héctor Ayoub RVT Lower Extremity CTA 08/26/24 14:00 IMPRESSION: Technically limited study as described. Severe multilevel disease as described level by level above. Interventional radiology consultation may be appropriate. Reading Location: [place] [id number] Discharge Plan Disposition Disposition: Acute Care Hospital [facility] Discharge Date/Time: 08/26/24 20:14
[2024-08-26] MEDS: Lorazepam 2 MG/ML WCH Syringe 1 MG IV (11:01)
[2024-08-26] MEDS: Morphine 4 MG/ML Syringe IV (11:02)
[2024-08-26 11:12] LABS: Absolute Lymphocyte Count 1.57 X10^3/uL (0.83-4.51); Absolute Neutrophil Count 5.2 X10^3/uL (2.0-7.7); Basophil# 0.05 X10^3/uL; Basophil% 0.7 % (0-1); Eosinophil# 0.21 X10^3/uL; Eosinophils% 2.8 % (0-5); Hematocrit 40.6 % (37-47); Hemoglobin 13.7 g/dL (12.0-15.0); Lymphocyte # 1.57 X10^3/ul (0.83-4.51); Lymphocyte % 20.9 % (19-41); Mean Corp Hgb Conc 33.7 g/dL (32-36); Mean Corpuscular Hgb 27.8 pg (27.0-32.0); Mean Corpuscular Volume 82.4 fL (81-99); Mean Platelet Vol. 9.1 fl (6.2-12.0); Monocyte# 0.43 X10^3/uL; Monocyte% 5.7 % (0-10); NRBC Flagged by Analyzer 0 % (0-5); Neutrophil # 5.22 X10^3/uL (2.7-7.7); Neutrophil % 69.6 % (47-70); Platelet Count 225 K/mm3 (150-450); RBC Distribution Width CV 13.6 % (11.6-14.6); RBC Distribution Width SD 40.2 fl (35.1-43.9); Red Blood Count 4.93 M/mm3 (4.2-5.4); White Blood Count 7.5 K/mm3 (4.4-11.0)
[2024-08-26 11:23] LABS: International Normalized Ratio 0.9; Prothrombin Time (Protime)PT. 12.3 SECONDS (11.7-14.9)
[2024-08-26 11:24] LABS: Partial Thromboplast Time 26.8 Seconds (24.1-36.2)
[2024-08-26 11:54] LABS: AST(SGOT) 27 U/L (<=31); Alanine Aminotransfer ALT/SGPT 14 U/L (<=34); Albumin, Serum 3.6 g/dL (3.5-5.0); Alkaline Phosphatase 134 U/L (35-104); Anion Gap 11 (5-15); BUN 10 mg/dL (4-19); BUN/Creat Ratio 14.1 RATIO (10-20); Bilirubin, Direct 0.08 mg/dL (0.00-0.30); Calcium,Total 9.2 mg/dL (7.6-11.0); Carbon Dioxide 22.3 mmol/L (21.0-32.0); Chloride 102 mmol/L (98-108); Creatinine, Serum 0.74 mg/dL (0.70-1.20); EST Glomerular Filtration Rate 97 (>60); Estimated Creatinine Clearance 97.71 ml/min (50-250); Globulin 3.4 g/dL (2.2-4.2); Glucose 315 mg/dL (70-99); Potassium 3.4 mmol/L (3.3-5.1); Pro- Brain NATRIURETIC PEPTIDE 1489 pg/mL (<=900); Sodium Level 135 mmol/L (133-145); Total Bilirubin 0.52 mg/dL (0.00-1.30)
[2024-08-26 11:57] LABS: Lactic Acid 1.5 mmol/L (0.0-2.0)
--- NOTE | 2024-08-26 14:00 | CT_ITS ---
EXAM: CT angiogram of the left lower extremity. CLINICAL HISTORY: Left thigh pain. History of diabetes. Remote history of amputation of the left toes. Pitting edema. COMPARISON: None available. TECHNIQUE: Patient was injected intravenously with 100 cc of Isovue 370. Study is technically limited in that the entire abdomen and pelvis was not imaged with the right-side coned off of the field of view. Study started at the infrarenal abdominal aorta level and also excluded of the right lower extremity. FINDINGS: Moderate mixed calcific and fibrofatty plaquing is seen all along the infrarenal abdominal aorta. There is no evidence of aneurysm. There is no evidence of aortic leak. No dissection is identified. Similar changes are seen involving both common iliac arteries in these changes extend on the right into the visualized portion only of the proximal to mid external iliac artery with severe disease seen in the distal right internal iliac artery which occludes. On the left side, external iliac artery is widely patent in the internal iliac artery patent and moderately diseased. There is an approximately 60% of maximum diameter short segmental stenosis involving the left common femoral artery. The left deep femoral artery is moderately diseased but patent. Deep femoral artery on the left is mildly diseased but patent. Left superficial femoral artery shows 70% maximum diameter origin stenosis. Moderate to severe disease is seen in the mid to distal superficial femoral artery and this appears worsened along proximal popliteal artery from the adductor hiatus distally with critical stenosis noted segmentally along the infra genicular popliteal artery. Severe disease seen at the bifurcation [id number] with moderately diseased but patent posterior tibial artery noted. Anterior tibial artery is visualized along its proximal 3rd. Appears moderately to severely diseased; its more distal aspect along the entire peroneal artery is not contrast opacified which may be due to obstructing disease and/or bolus timing factors. Dorsalis pedis artery is nonvisualized. CT/CTA LWR EXTR W/O & W/DYE IMPRESSION: Technically limited study as described. Severe multilevel disease as described level by level above. Interventional radiology consultation may be appropriate. Reading Location: [place] [address]
[2024-08-26] MEDS: oxyCODONE 5 MG Tablet PO ×2 (14:25→21:21)
[2024-08-26] MEDS: Furosemide 100 MG/10 ML Vial 80 MG IV (14:26)
[2024-08-26] MEDS: Morphine 2 MG/ML Syringe IV ×2 (17:42→22:38)
[2024-08-26] MEDS: Heparin Injection (Vial) 5,000 UNIT/ML VIAL 4000 UNIT IV (19:34)
[2024-08-26] MEDS: HEPARIN/D5w 25,000 UNITS 25,000 UNITS/250 ML IV.SOLN. 10 UNITS CONT INF (19:38)
[2024-08-26 19:49] LABS: Prothrombin Time (Protime)PT. 12.8 SECONDS (11.7-14.9)
[2024-08-26 19:50] LABS: Partial Thromboplast Time 26.5 Seconds (24.1-36.2)
--- NOTE | 2024-08-26 20:03 | PCM.HP.STD ---
HPI - General General Date of Admission: 08/26/24 Date of Service: 08/26/24 Chief Complaint: Left lower extremity pain HPI Narrative TRENTON DENTON, is a 54-year-old female with history of coronary artery disease, combined heart failure, hypertension, diabetes presented to [facility] ED 08/26/2024 due to pain and swelling of her left leg. She noticed swelling that started Sunday and the pain became so severe that it drove her to tears last night. She has had this happen before but does not know what happened the last time she was admitted for it but it does seem that this happened and she required stenting in her right leg. In the ED patient's labs remarkable for glucose of 315 and a BNP of 1486 (chest x-ray with no edema or acute process) but otherwise unremarkable, lower extremity negative for DVT but a lower extremity CTA demonstrated severe right-sided disease and severe left-sided disease with critical stenosis noted segmentally along the infragenicular popliteal artery with severe disease at the bifurcation and additionally anterior tibial artery appears moderately to severely diseased, the more distal aspect is not contrast opacified which may be due to obstructing disease and/or bolus timing. Patient with severe pain and unable to ambulate or control pain so hospitalist contacted for admission. Patient evaluated at bedside and reports that she has had the pain and swelling the left lower extremity since Sunday that has been constant and last night she suddenly had such severe pain that she can hardly stand it, notes her foot is numb but she is feeling nauseous though she has not eaten, denies any right leg symptoms or other new or acute complaints. Reports she has been taking her medicine but had not taken it yet this a.m. patient unable to tell me what her home medications are he says she just takes what she is prescribed and is not sure what is what [facility] Medical History ESBL (extended spectrum beta-lactamase) producing bacteria infection Generalized weakness Candidiasis of breast Colitis Debility PTSD (post-traumatic stress disorder) Closed compression fracture of L3 vertebra Hypokalemia Colitis BiPAP (biphasic positive airway pressure) dependence Coronary artery disease L5 vertebral fracture On home oxygen therapy Rheumatoid arthritis Sleep apnea Smoker DVT (deep venous thrombosis) Seizures Amputation toe Psychiatric disorder Ischemic cardiomyopathy Diabetes type 2, uncontrolled Essential hypertension Substance abuse Alcohol abuse Depression Osteoporosis GERD (gastroesophageal reflux disease) Pulmonary embolism Myocardial infarct Pericardial effusion Hypoxemia Acute dyspnea Aftercare following surgery of the circulatory system Hx of fracture of humerus Toe amputee Hyperlipidemia CHF (congestive heart failure) CAD (coronary artery disease), [place] coronary artery Home Medications ?Medication ?Instructions ?Recorded ?Last Taken ?Type aspirin 81 mg capsule 81 mg PO DAILY heart health 08/10/22 02/01/23 History clopidogrel 75 mg tablet 75 mg PO DAILY anti platelet #30 02/03/23 02/13/24 10:00 Rx tabs 75 mg pantoprazole 40 mg tablet,delayed 40 mg PO DAILY reflux 04/18/23 02/13/24 10:00 History release 40 mg sacubitril 24 mg-valsartan 26 mg 1 tab PO BID 30 days #60 tabs 05/07/23 02/13/24 22:00 Rx tablet (Entresto) 1 TAB atorvastatin 80 mg tablet 80 mg PO QHS cholesterol 12/29/23 Unknown History gabapentin 300 mg capsule 300 mg PO TID 12/29/23 02/13/24 08:00 History 300 mg insulin glargine 100 unit/mL (3 40 unit subcut DAILY dm 12/29/23 02/13/24 07:00 History mL) subcutaneous pen (Lantus 40 units Solostar U-100 Insulin) insulin lispro 100 unit/mL 1 sliding scale dose subcut TIDCM 12/29/23 Unknown History subcutaneous half-unit pen DIC 2%/RINKU 6%/LIDOC 2% IN 1 - 2 pump subdermal Q6H PRN FOR 02/14/24 Unknown History saltsable FEET cholecalciferol (vitamin D3) 1,250 1,250 mcg PO WE 02/14/24 Unknown History mcg (50,000 unit) tablet spironolactone 25 mg tablet 25 mg PO DAILY water pill 30 days 02/17/24 02/13/24 10:00 Rx #0 tabs 12.5 mg carvedilol 3.125 mg tablet 6.25 mg (2 x 3.125 mg) PO BID 02/19/24 Unknown Rx blood pressure 30 days #0 tabs ergocalciferol (vitamin D2) 1,250 1,250 mcg PO We@1000 #0 caps 02/19/24 Unknown Rx mcg (50,000 unit) capsule (Vitamin D2) insulin glargine 100 unit/mL (3 20 unit (0.2 mL) subcut QPM 30 02/19/24 02/13/24 22:00 Rx mL) subcutaneous pen (Lantus days #0 mL 24 units Solostar U-100 Insulin) escitalopram oxalate 20 mg tablet 20 mg PO DAILY depression 06/29/24 Unknown History furosemide 20 mg tablet 20 mg PO DAILY water pill 06/29/24 Unknown History gabapentin 400 mg capsule 400 mg 3XD 06/29/24 Unknown History midodrine 2.5 mg tablet mg 06/29/24 Unknown History polyethylene glycol 3350 17 17 g PO BID PRN constipation 06/29/24 Unknown History gram/dose oral powder (Miralax) sennosides 8.6 mg-docusate sodium 2 tab PO BID PRN constipation 06/29/24 Unknown History 50 mg tablet (Stimulant Laxative Plus) tizanidine 4 mg tablet 4 mg PO 3XD spasm 06/29/24 Unknown History haloperidol 1 mg tablet 1 mg PO TID #21 tabs 07/03/24 Unknown Rx ondansetron HCl 4 mg tablet 4 mg PO Q8H nausea #10 tabs 08/01/24 Unknown Rx hydrocodone-acetaminophen 5-325mg 1 tab PO Q6H PRN Pain 08/26/24 Unknown History 5mg-325mg Allergy/AdvReac Type Severity Reaction Status Date / Time latex Allergy Hives Verified 08/01/24 13:46 Family History Mother Thyroid disorder Diabetes Hypertension Grandmother Diabetes Uncle Diabetes Aunt Diabetes Other Heart disease Surgical History History of cholecystectomy History of appendectomy History of cholecystectomy Social History household members: spouse and children housing: house Smoking Status: Heavy Smoker (>10/day) alcohol intake: never substance use type: marijuana what type of physical activity do you participate in: none do you feel safe at home: Yes ROS ROS Narrative General: Denies fever/chills HENT: Denies acute headache, denies stuffy nose, denies sore throat EYES: Denies changes in vision Resp: Denies cough, denies shortness of breath Cardiac: Denies chest pain GI: Denies abdominal pain, denies changes in bowel, has some nausea : Denies changes in urination Extremity: Swelling in left lower extremity MSK: Left lower extremity swelling Neuro: Numbness in left lower extremity Heme: Denies any bleeding or bruising Skin: Denies rashes Psychiatric: Patient anxious Vital Signs Vital Signs Vital Signs: 08/26/24 10:08 08/26/24 10:14 08/26/24 11:14 Temperature 98 F 98 F 98 F Temperature Source Oral Oral Oral Pulse Rate 113 H 112 H 98 Respiratory Rate 23 H 23 H 27 H Blood Pressure 168/96 H 168/96 H 141/83 H Blood Pressure Mean 120 120 102 Pulse Ox 99 98 99 Oxygen Delivery Method Room Air Room Air Room Air 08/26/24 12:00 08/26/24 12:07 08/26/24 13:00 Temperature 98 F 98 F Temperature Source Oral Oral Pulse Rate 98 91 Respiratory Rate 30 H 13 Blood Pressure 145/82 H 145/82 H 143/85 H Blood Pressure Mean 103 103 104 Pulse Ox 93 98 Oxygen Delivery Method Room Air Room Air 08/26/24 14:00 08/26/24 14:00 08/26/24 14:00 Temperature 98 F Temperature Source Oral Pulse Rate 99 100 Respiratory Rate 18 14 Blood Pressure 131/92 H 150/112 H 131/92 H Blood Pressure Mean 105 124 105 Pulse Ox 100 97 Oxygen Delivery Method Room Air 08/26/24 15:00 08/26/24 15:56 08/26/24 17:56 Temperature 98 F Temperature Source Oral Pulse Rate 98 Respiratory Rate 16 Blood Pressure 115/87 H 130/86 H 109/68 Blood Pressure Mean 96 100 81 Pulse Ox 98 97 96 Oxygen Delivery Method Room Air Room Air Room Air 08/26/24 19:09 08/26/24 20:00 Temperature 98 F Temperature Source Pulse Rate 97 98 Respiratory Rate 16 Blood Pressure 132/74 H 129/69 H Blood Pressure Mean 93 89 Pulse Ox 97 Oxygen Delivery Method Weight Weight: 83.6 kg Body Mass Index (BMI) 28.8 Physical Exam Narrative General: Awake, answers questions but is very distressed HEENT: Atraumatic, normocephalic Eyes: Anicteric, normal conjunctiva, extraocular movements grossly intact Neck: Supple Respiratory: Clear to auscultation bilaterally, normal respiratory effort Cardiovascular: Regular rate and rhythm GI: Soft, nontender, nondistended Extremities: Some left lower extremity edema Musculoskeletal: Left lower extremity cool compared to right, does have DP pulse and faint TP pulse Neuro: Left foot with decreased sensation Skin: Some light excoriation appearance on lower extremities Psych: Tearful and anxious Results Lab / Micro Data 08/26/24 10:55 08/26/24 10:55 Labs: Laboratory Results - last 24 hr 08/26/24 10:55: WBC 7.5, RBC 4.93, Hgb 13.7, Hct 40.6, MCV 82.4, MCH 27.8, MCHC 33.7, RDW Std Deviation 40.2, RDW Coeff of [place] 13.6, Plt Count 225, MPV 9.1, Immature Gran % (Auto) 0.300, Neut % (Auto) 69.6, Lymph % (Auto) 20.9, [place] % (Auto) 5.7, Eos % (Auto) 2.8, Baso % (Auto) 0.7, Absolute Neuts (auto) 5.2, Absolute Lymphs (auto) 1.57, Nucleated RBC % 0, PT 12.3, INR 0.9, APTT 26.8, Sodium 135, Potassium 3.4, Chloride 102, Carbon Dioxide 22.3, Anion Gap 11, BUN 10, Creatinine 0.74, Estim Creat Clear Calc 97.71, Est GFR (MDRD) Non-Af 97, BUN/Creatinine Ratio 14.1, Glucose 315 H, Lactic Acid 1.5, Calcium 9.2, Total Bilirubin 0.52, Direct Bilirubin 0.08, AST 27, ALT 14, Alkaline Phosphatase 134 H, NT pro BNP II 1489 H, Total Protein 7.0, Albumin 3.6, Globulin 3.4 08/26/24 19:24: PT 12.8, INR 1.0, APTT 26.5 Imaging Radiology Impression Chest X-Ray 08/26/24 10:40 IMPRESSION: No acute cardiopulmonary process. Reading Location: [facility] Venous Doppler Study 08/26/24 10:40 Interpretation Summary Deep veins of the left lower extremity are patent and compressible segmentally. There is no evidence of left lower extremity deep vein thrombosis. The left great saphenous vein appears patent and compressible segmentally. Incidental finding, right SFA stent occlusion Ordering Physician: Jesse Abrams Referring Physician: [facility] Performed By: Héctor Ayoub RVT Lower Extremity CTA 08/26/24 14:00 IMPRESSION: Technically limited study as described. Severe multilevel disease as described level by level above. Interventional radiology consultation may be appropriate. Reading Location: [place] [address] Assessment & Plan Assessment/Plan (1) Acute pain of left lower extremity: PLAN: Plan # Left lower extremity pain -Lower extremity negative for DVT but a lower extremity CTA demonstrated severe right-sided disease and severe left-sided disease with critical stenosis noted segmentally along the infragenicular popliteal artery with severe disease at the bifurcation and additionally anterior tibial artery appears moderately to severely diseased, the more distal aspect is not contrast opacified which may be due to obstructing disease and/or bolus timing -Discussed with vascular surgery, appears to be smaller vessel and ischemic without overt appearing embolic source, recommended heparin drip and n.p.o. at midnight -Patient unsure what medication she takes, will have patient on aspirin and statin, she is unsure if she takes Plavix I do not see where this has been filled so we will continue the aspirin, heparin, statin # Chronic combined heart failure -Last echo 05/04/2023 showed EF 15% with stage III diastolic dysfunction -Do not see where patient has been filling Lasix, will need to attempt to get updated medication list but most recently been filling Lasix 20 mg, will continue this -Appears euvolemic -Daily weights -I's and O's -Not in acute exacerbation, very mild increase in BNP however patient with no increased shortness of breath, denies any increase in swelling bilaterally, chest x-ray without any congestion #Type 2 diabetes mellitus -Glucose checks and sliding scale insulin -Again did not see her patient has filled medications in the last 30 days so unclear diabetes regimen, starting sliding scale insulin, will likely need scheduled but will need to see needs # History of coronary artery disease -Aspirin, statin, beta-linda with holding parameters #Tobacco use -Advise cessation -Nicotine replacement available if desired #GERD -Continue PPI #DVT ppx: Heparin drip Brenda Posadas MD Time spent in the patient's overall evaluation, decision-making process, review of diagnostic data, adjustment of management, discussion with other providers, nursing and ancillary staff involved in patient's care documentation, 76 Minutes Charges/Coding Visit Charges Inpatient E&M: 79610 Init Hosp L3
[2024-08-26] MEDS: Ondansetron 4 MG/2 ML Vial IV (21:03)
[2024-08-26] MEDS: Acetaminophen 500 MG Tablet 1000 MG PO (21:22)
[2024-08-26] MEDS: Atorvastatin Calcium 80 MG Tablet PO (21:23)
[2024-08-26] MEDS: Carvedilol 3.125 MG TABLET PO (21:25)
[2024-08-26] MEDS: Insulin Lispro 100 UNIT/ML INSULN.PEN SC (21:25)
[2024-08-26] MEDS: 0.9% Saline Lock 10 ML Syringe IV ×2 (21:31→22:42)
[2024-08-26 21:41] LABS: Bedside Glucose 193 mg/dL (74-106)
[2024-08-27] VITALS (21 sets, daily range): BP systolic 102–149; BP diastolic 58–96; PULSE 67–92; RESP 8–22; TEMP 36.1–36.9; O2SAT 93–99; BMI 27.1
[2024-08-27] MEDS: oxyCODONE 5 MG Tablet PO ×3 (03:21→22:59)
[2024-08-27 03:26] LABS: Absolute Lymphocyte Count 1.77 X10^3/uL (0.83-4.51); Absolute Neutrophil Count 6.2 X10^3/uL (2.0-7.7); Basophil# 0.06 X10^3/uL; Basophil% 0.7 % (0-1); Eosinophil# 0.14 X10^3/uL; Eosinophils% 1.6 % (0-5); Hematocrit 33.8 % (37-47); Hemoglobin 11.6 g/dL (12.0-15.0); Lymphocyte # 1.77 X10^3/ul (0.83-4.51); Lymphocyte % 20.6 % (19-41); Mean Corp Hgb Conc 34.3 g/dL (32-36); Mean Corpuscular Hgb 28.2 pg (27.0-32.0); Mean Platelet Vol. 9.2 fl (6.2-12.0); Monocyte# 0.38 X10^3/uL; Monocyte% 4.4 % (0-10); NRBC Flagged by Analyzer 0 % (0-5); Neutrophil # 6.23 X10^3/uL (2.7-7.7); Neutrophil % 72.4 % (47-70); Platelet Count 229 K/mm3 (150-450); RBC Distribution Width CV 13.7 % (11.6-14.6); RBC Distribution Width SD 40.4 fl (35.1-43.9); Red Blood Count 4.12 M/mm3 (4.2-5.4); White Blood Count 8.6 K/mm3 (4.4-11.0)
[2024-08-27 03:53] LABS: ALB/GLOB Ratio 1.1 RATIO (0.9-2.4); AST(SGOT) 20 U/L (<=31); Alanine Aminotransfer ALT/SGPT 13 U/L (<=34); Albumin, Serum 3.1 g/dL (3.5-5.0); Alkaline Phosphatase 117 U/L (35-104); Anion Gap 9 (5-15); BUN 11 mg/dL (4-19); BUN/Creat Ratio 16.7 RATIO (10-20); Calcium,Total 8.8 mg/dL (7.6-11.0); Carbon Dioxide 23.8 mmol/L (21.0-32.0); Chloride 102 mmol/L (98-108); Creatinine, Serum 0.65 mg/dL (0.70-1.20); EST Glomerular Filtration Rate 105 (>60); Globulin 2.9 g/dL (2.2-4.2); Glucose 293 mg/dL (70-99); Potassium 2.5 mmol/L (3.3-5.1); Protein, Total 5.9 g/dL (5.9-8.4); Sodium Level 136 mmol/L (133-145); Total Bilirubin 0.61 mg/dL (0.00-1.30)
[2024-08-27 03:57] LABS: Prothrombin Time (Protime)PT. 13.2 SECONDS (11.7-14.9)
[2024-08-27] MEDS: 0.9% Saline Lock 10 ML Syringe IV ×4 (04:38→16:47)
[2024-08-27] MEDS: Morphine 2 MG/ML Syringe IV ×4 (04:39→20:13)
[2024-08-27] MEDS: Potassium Chloride Oral Tablet 20 MEQ 60 MEQ PO (04:42)
[2024-08-27 05:20] LABS: Partial Thromboplast Time 79.3 Seconds (24.1-36.2)
[2024-08-27] MEDS: Ondansetron 4 MG/2 ML Vial IV ×2 (06:46→15:40)
[2024-08-27] MEDS: Potassium Chloride Oral Tablet 20 MEQ 40 MEQ PO (06:46)
[2024-08-27] MEDS: Acetaminophen 500 MG Tablet 1000 MG PO ×3 (06:48→20:22)
--- NOTE | 2024-08-27 07:03 | ART_ITS ---
Reason For Study Reason For Study: PAD / HX Rt SFA Stent Left Segmental Pressures Left posterior tibial artery = >254mmHg. Left dorsalis pedis artery = 102mmHg. The left posterior tibial artery waveforms are biphasic. The left dorsalis pedis waveforms are biphasic. Right Segmental Pressures Right brachial= 121mmHg. Right posterior tibial artery = >254mmHg. Right dorsalis pedis artery = 81mmHg. Right digit = 77 mmHg. The right posterior tibial artery waveforms are monophasic. The right dorsalis pedis waveforms are monophasic. Indices The right ankle brachial index by the posterior tibial artery is N/C. The right ankle brachial index by the dorsalis pedis is 0.67. The right digital-brachial index is 0.64. The left ankle brachial index by the posterior tibial artery is N/C. The left ankle brachial index by the dorsalis pedis is 0.84. HX Lt Great Toe Amputation. VL/Ankle Brachial Index Interpretation Summary Right VIRY 0.67, moderate arterial insufficiency. Doppler/PVR waveforms of the r ight ankle moderately diminished at rest. Left VIRY 0.84, moderately arterial insufficiency. Doppler/PVR waveforms of the left ankle moderately diminished at rest. Ordering Physician: Riccardo Ng Referring Physician: RICCARDO NG MD Performed By: Héctor Ayoub RVT
--- NOTE | 2024-08-27 07:05 | EX.PCM.CON.S ---
Assessment & Plan Assessment/Plan (1) Peripheral vascular disease, unspecified: PLAN: -CTA images reviewed, has moderate diffuse atherosclerosis without proximal occlusion; non-opacified infrapopliteal vessels -by exam foot is well perfused; pedal pulse exam similar to upon admission -pain also radiates more proximal in leg and to hip/back -would continue heparin for now, obtain VIRY an if satisfactory then could stop -spine imaging, suspect symptoms are neurogenic HPI Consult Data Date of Consult: 08/27/24 HPI Narrative HPI Narrative: TRENTON DENTON, is a 54 F who presents with left leg/foot pain that began ~5 days ago. Initially began with pain while walking/weight bearing. Two nights ago began hurting all the time, numb from foot to knee, pain radiates to thigh/hip/back. Has difficulty moving at ankle, prior TMA. She had a CTA that demonstrated non-opacification of tibial vessels, unclear if occlusive or contrast timing. She does have history of CHF with severely reduced EF of 15%; last evaluated here in 2022. Also has history of prior lumbar spine fractures; she always walked hunched over due to her back issues. She was placed on heparin upon admission, her pain has continued with no significant change and minimal relief with pain medications. [facility] Medical History ESBL (extended spectrum beta-lactamase) producing bacteria infection Generalized weakness Candidiasis of breast Colitis Debility PTSD (post-traumatic stress disorder) Closed compression fracture of L3 vertebra Hypokalemia Colitis BiPAP (biphasic positive airway pressure) dependence Coronary artery disease L5 vertebral fracture On home oxygen therapy Rheumatoid arthritis Sleep apnea Smoker DVT (deep venous thrombosis) Seizures Amputation toe Psychiatric disorder Ischemic cardiomyopathy Diabetes type 2, uncontrolled Essential hypertension Substance abuse Alcohol abuse Depression Osteoporosis GERD (gastroesophageal reflux disease) Pulmonary embolism Myocardial infarct Pericardial effusion Hypoxemia Acute dyspnea Aftercare following surgery of the circulatory system Hx of fracture of humerus Toe amputee Hyperlipidemia CHF (congestive heart failure) CAD (coronary artery disease), chenega coronary artery Home Medications ?Medication ?Instructions ?Recorded ?Last Taken ?Type aspirin 81 mg capsule 81 mg PO DAILY heart health 08/10/22 02/01/23 History clopidogrel 75 mg tablet 75 mg PO DAILY anti platelet #30 02/03/23 02/13/24 10:00 Rx tabs 75 mg pantoprazole 40 mg tablet,delayed 40 mg PO DAILY reflux 04/18/23 02/13/24 10:00 History release 40 mg sacubitril 24 mg-valsartan 26 mg 1 tab PO BID 30 days #60 tabs 05/07/23 02/13/24 22:00 Rx tablet (Entresto) 1 TAB atorvastatin 80 mg tablet 80 mg PO QHS cholesterol 12/29/23 Unknown History gabapentin 300 mg capsule 300 mg PO TID 12/29/23 02/13/24 08:00 History 300 mg insulin glargine 100 unit/mL (3 40 unit subcut DAILY dm 12/29/23 02/13/24 07:00 History mL) subcutaneous pen (Lantus 40 units Solostar U-100 Insulin) insulin lispro 100 unit/mL 1 sliding scale dose subcut TIDCM 12/29/23 Unknown History subcutaneous half-unit pen DIC 2%/RINKU 6%/LIDOC 2% IN 1 - 2 pump subdermal Q6H PRN FOR 02/14/24 Unknown History saltsable FEET cholecalciferol (vitamin D3) 1,250 1,250 mcg PO WE 02/14/24 Unknown History mcg (50,000 unit) tablet spironolactone 25 mg tablet 25 mg PO DAILY water pill 30 days 02/17/24 02/13/24 10:00 Rx #0 tabs 12.5 mg carvedilol 3.125 mg tablet 6.25 mg (2 x 3.125 mg) PO BID 02/19/24 Unknown Rx blood pressure 30 days #0 tabs ergocalciferol (vitamin D2) 1,250 1,250 mcg PO We@1000 #0 caps 02/19/24 Unknown Rx mcg (50,000 unit) capsule (Vitamin D2) insulin glargine 100 unit/mL (3 20 unit (0.2 mL) subcut QPM 30 02/19/24 02/13/24 22:00 Rx mL) subcutaneous pen (Lantus days #0 mL 24 units Solostar U-100 Insulin) escitalopram oxalate 20 mg tablet 20 mg PO DAILY depression 06/29/24 Unknown History furosemide 20 mg tablet 20 mg PO DAILY water pill 06/29/24 Unknown History gabapentin 400 mg capsule 400 mg 3XD 06/29/24 Unknown History midodrine 2.5 mg tablet mg 06/29/24 Unknown History polyethylene glycol 3350 17 17 g PO BID PRN constipation 06/29/24 Unknown History gram/dose oral powder (Miralax) sennosides 8.6 mg-docusate sodium 2 tab PO BID PRN constipation 06/29/24 Unknown History 50 mg tablet (Stimulant Laxative Plus) tizanidine 4 mg tablet 4 mg PO 3XD spasm 06/29/24 Unknown History haloperidol 1 mg tablet 1 mg PO TID #21 tabs 07/03/24 Unknown Rx ondansetron HCl 4 mg tablet 4 mg PO Q8H nausea #10 tabs 08/01/24 Unknown Rx hydrocodone-acetaminophen 5-325mg 1 tab PO Q6H PRN Pain 08/26/24 Unknown History 5mg-325mg Allergy/AdvReac Type Severity Reaction Status Date / Time latex Allergy Hives Verified 08/01/24 13:46 Family History Mother Thyroid disorder Diabetes Hypertension Grandmother Diabetes Uncle Diabetes Aunt Diabetes Other Heart disease Surgical History History of cholecystectomy History of appendectomy History of cholecystectomy Social History household members: spouse and children housing: house Smoking Status: Heavy Smoker (>10/day) alcohol intake: never substance use type: marijuana what type of physical activity do you participate in: none do you feel safe at home: Yes ROS Constitutional Constitutional: Denies chills, fever(s), frequent falls, lethargy or weakness Eyes Eyes: Denies blind spots, change in vision or loss of vision ENT HEENT: Denies bleeding gums, hoarseness or sore throat Cardiovascular Cardiovascular: Reports leg edema, numbness in extremities and weakness in extremities; Denies abdominal pain, bluish discoloration of hand/feet, chest pain with activity, claudication, cold extremities, cyanosis, dyspnea on exertion, erythema on extremities, irregular heart rhythm or leg ulcers Respiratory/Chest Respiratory/Chest: Denies cough, excessive phlegm production, shortness of breath at rest, shortness of breath with exertion or wheezing Gastrointestinal Gastrointestinal: Denies anorexia, change in stool character, constipation, diarrhea, melena or rectal bleeding Genitourinary Genitourinary: Denies dysuria or hematuria Musculoskeletal Musculoskeletal: Reports back pain, extremity pain, numbness and radiating pain into limb; Denies abnormal gait Integumentary Integumentary: Denies erythema, non-healing lesions or wounds Neurologic Neurologic: Denies abnormal speech, focal weakness, headache(s), loss of vision, numbness, paresthesias or sensory deficit Hematologic/Lymphatic Hematologic/Lymphatic: Denies easy bleeding, easy bruising or lymphadenopathy Physical Exam Const alert, oriented x3 and no apparent distress; Negative for healthy appearing General Appearance: cooperative and appears older than stated age; Negative for combative or lethargic Orientation / Consciousness: awake Exam Limitations: no limitations HEENT Head and Scalp: normocephalic and atraumatic Eyes EOMs intact bilaterally General Eye: normal appearance of both eyes Neck full ROM General: trachea midline Resp normal respiratory effort and no use of accessory muscles Effort and Inspection: Negative for labored, stridor or audible wheezes Cardio regular rate and regular rhythm Peripheral Pulses: brachial pulses present, radial pulses present, popliteal pulses present right dopplerable and left 1+, posterior tibial pulses present bilateral dopplerable and dorsalis pedis pulses present bilateral dopplerable Back/Spine Cervical Spine: cervical ROM normal Extremity full ROM, normal capillary refill and no clubbing, cyanosis or edema Skin no rashes or lesions noted, no wounds and no mottling Neuro oriented x3 and CN's II-XII intact bilaterally Psych thought process normal, cooperative, affect normal, speech normal and activity/motor behavior normal Speech: normal speech Mood & Affect: tearful Thought Content: normal thought content Attention / Concentration: attention grossly intact and concentration grossly intact Lab / Micro Data 08/27/24 03:15 08/27/24 03:15 Labs: Laboratory Results - last 24 hr 08/26/24 10:55: WBC 7.5, RBC 4.93, Hgb 13.7, Hct 40.6, MCV 82.4, MCH 27.8, MCHC 33.7, RDW Std Deviation 40.2, RDW Coeff of Spencer 13.6, Plt Count 225, MPV 9.1, Immature Gran % (Auto) 0.300, Neut % (Auto) 69.6, Lymph % (Auto) 20.9, [place] % (Auto) 5.7, Eos % (Auto) 2.8, Baso % (Auto) 0.7, Absolute Neuts (auto) 5.2, Absolute Lymphs (auto) 1.57, Nucleated RBC % 0, PT 12.3, INR 0.9, APTT 26.8, Sodium 135, Potassium 3.4, Chloride 102, Carbon Dioxide 22.3, Anion Gap 11, BUN 10, Creatinine 0.74, Estim Creat Clear Calc 97.71, Est GFR (MDRD) Non-Af 97, BUN/Creatinine Ratio 14.1, Glucose 315 H, Lactic Acid 1.5, Calcium 9.2, Total Bilirubin 0.52, Direct Bilirubin 0.08, AST 27, ALT 14, Alkaline Phosphatase 134 H, NT pro BNP II 1489 H, Total Protein 7.0, Albumin 3.6, Globulin 3.4 08/26/24 19:24: PT 12.8, INR 1.0, APTT 26.5 08/26/24 21:22: POC Glucose 193 H 08/27/24 03:15: WBC 8.6, RBC 4.12 L, Hgb 11.6 L, Hct 33.8 L, MCV 82.0, MCH 28.2, MCHC 34.3, RDW Std Deviation 40.4, RDW Coeff of Spencer 13.7, Plt Count 229, MPV 9.2, Immature Gran % (Auto) 0.300, Neut % (Auto) 72.4 H, Lymph % (Auto) 20.6, [place] % (Auto) 4.4, Eos % (Auto) 1.6, Baso % (Auto) 0.7, Absolute Neuts (auto) 6.2, Absolute Lymphs (auto) 1.77, Nucleated RBC % 0, PT 13.2, INR 1.0, APTT 79.3 H, Sodium 136, Potassium 2.5 L*, Chloride 102, Carbon Dioxide 23.8, Anion Gap 9, BUN 11, Creatinine 0.65 L, Estim Creat Clear Calc 107.70, Est GFR (MDRD) Non-Af 105, BUN/Creatinine Ratio 16.7, Glucose 293 H, Calcium 8.8, Total Bilirubin 0.61, AST 20, ALT 13, Alkaline Phosphatase 117 H, Total Protein 5.9, Albumin 3.1 L, Globulin 2.9, Albumin/Globulin Ratio 1.1, TSH 1.180 Imaging Radiology Impression Chest X-Ray 08/26/24 10:40 IMPRESSION: No acute cardiopulmonary process. Reading Location: [facility] Venous Doppler Study 08/26/24 10:40 Interpretation Summary Deep veins of the left lower extremity are patent and compressible segmentally. There is no evidence of left lower extremity deep vein thrombosis. The left great saphenous vein appears patent and compressible segmentally. Incidental finding, right SFA stent occlusion Ordering Physician: Jesse Abrams Referring Physician: [facility] Performed By: Héctor Ayoub RVT Lower Extremity CTA 08/26/24 14:00 IMPRESSION: Technically limited study as described. Severe multilevel disease as described level by level above. Interventional radiology consultation may be appropriate. Reading Location: [place] [address] Charges/Coding Visit Charges Inpatient E&M: 97381 Init Hosp L3
--- NOTE | 2024-08-27 07:25 | MRI_ITS ---
EXAM: MRI of the lumbar spine without contrast CLINICAL HISTORY: Severe radiculopathy. COMPARISON: Abdomen and pelvis CT 08/01/2024. TECHNIQUE: MRI of the lumbar spine without contrast. FINDINGS: Stable moderately severe wedge compression fracture of the L3 vertebral body, with stable mild posterior protrusion of the vertebral body noted. Stable mild compression of the superior endplate of the L5 vertebral body. Prominent superior L4 Schmorl's node again noted. No evidence of spondylolysis. No acute osseous signal change is seen. The conus medullaris appears normally positioned. L1-L2: Mild posterior facet and ligamentum flavum hypertrophy is seen. No significant spinal canal stenosis or neural foraminal narrowing is seen. L2-L3: Mild right and dywx-pp-qjlpatsn left posterior facet and ligamentum flavum hypertrophy is seen. Moderate spinal canal narrowing is noted in the presence of the posterior vertebral body and a moderate disc bulge. Also, tohz-pj-bjnnovcq asymmetric right neural foraminal narrowing is noted. L3-L4: Kieh-eb-kgesbdsv posterior facet and ligamentum flavum hypertrophy is seen. A moderate broad-based disc protrusion is noted. Mild spinal canal narrowing is noted. Moderate right neural foraminal narrowing is seen, and moderately severe left neural foraminal narrowing is noted. L4-L5: Mild posterior facet and ligamentum flavum hypertrophy is seen, doht-fvwyfky-wnhn-right. A mild diffuse disc bulge is noted. This results in mild bilateral neural foraminal narrowing. A mild degree of spinal canal narrowing is present. L5-S1: Superimposed upon a slight disc bulge is seen a left sided mild disc protrusion. No significant degree of spinal canal stenosis or neural foraminal narrowing is noted at this level. MRI/Spine Lumbar (Routine) IMPRESSION: 1. Chronic posttraumatic and degenerative changes as described. 2. Multilevel lumbar degenerative disc disease is noted. Reading Location: [id number]
--- NOTE | 2024-08-27 07:25 | PCM.PN.HOSP ---
Reason for Visit Reason for Visit: Left leg pain Subjective Subjective Patient is a 54-year-old white female with multiple comorbidities and compliance issues who presented to the emergency department at [facility] on 08/26/2024 with a chief complaint of left lower extremity pain and swelling. Patient reported that she noted that symptoms began Sunday prior to presentation and the pain became severe the night prior to presentation to the point where she was climbing. She indicated this happened to her before but does not recall what happened. She did report on presentation that a stent was placed in her leg about a year prior to presentation and that she had amputations previously in her toes but does not recall the reason why. Vital signs on presentation showed temperature of 98, heart rate 113, respiratory rate 23, blood pressure 160/96 and pulse ox was 99% on room air. CBC was unremarkable. Coags were normal. Chemistry panel is unremarkable except marked hyperglycemia with a blood sugar of 315. Lactic acid was normal at 1.5. BNP was ordered and was 1489 but significance is unclear as patient was not having significant respiratory symptoms. Chest x-ray showed no acute cardiopulmonary process. Venous duplex was negative for DVT but did demonstrate right SFA stent occlusion. CTA of the lower extremities with runoff was performed and was technically limited but did discuss severe multilevel disease and vascular surgery was consulted. Given her severe leg pain and inability ambulate she was admitted to the intensive care unit as there was concern of severe vascular disease at the time of presentation and placed on heparin drip. Vascular surgery evaluated patient on the a.m. of 08/27/2024 Patient still complaining of significant lower extremity pain on the left side. Seems to be perfusing well. States sleeping is been problematic. Will restart gabapentin to see if this helps. She does have pain medication as needed ordered as well. Objective Data Objective Data Vital Signs: Vital Signs Temp Pulse Resp BP Pulse Ox O2 Del Method 97.6 F L 89 12 124/84 H 98 Room Air 08/27/24 05:00 08/27/24 07:00 08/27/24 07:00 08/27/24 07:00 08/27/24 07:00 08/27/24 07:00 Oxygen Delivery Method Room Air Weight: 78.8 kg Body Mass Index (BMI) 27.1 Intake & Output: Intake and Output for Last 24 Hours 08/25/24 08/26/24 08/27/24 23:59 23:59 23:59 Intake Total 500 / 860 457.83 / 457.83 Output Total 450 / 450 Balance 500 / 710 7.83 / 7.83 Lab / Micro Data 08/27/24 03:15 08/27/24 11:30 Labs: Laboratory Results - last 24 hr 08/26/24 10:55: WBC 7.5, RBC 4.93, Hgb 13.7, Hct 40.6, MCV 82.4, MCH 27.8, MCHC 33.7, RDW Std Deviation 40.2, RDW Coeff of Spencer 13.6, Plt Count 225, MPV 9.1, Immature Gran % (Auto) 0.300, Neut % (Auto) 69.6, Lymph % (Auto) 20.9, [place] % (Auto) 5.7, Eos % (Auto) 2.8, Baso % (Auto) 0.7, Absolute Neuts (auto) 5.2, Absolute Lymphs (auto) 1.57, Nucleated RBC % 0, PT 12.3, INR 0.9, APTT 26.8, Sodium 135, Potassium 3.4, Chloride 102, Carbon Dioxide 22.3, Anion Gap 11, BUN 10, Creatinine 0.74, Estim Creat Clear Calc 97.71, Est GFR (MDRD) Non-Af 97, BUN/Creatinine Ratio 14.1, Glucose 315 H, Lactic Acid 1.5, Calcium 9.2, Total Bilirubin 0.52, Direct Bilirubin 0.08, AST 27, ALT 14, Alkaline Phosphatase 134 H, NT pro BNP II 1489 H, Total Protein 7.0, Albumin 3.6, Globulin 3.4 08/26/24 19:24: PT 12.8, INR 1.0, APTT 26.5 08/26/24 21:22: POC Glucose 193 H 08/27/24 03:15: WBC 8.6, RBC 4.12 L, Hgb 11.6 L, Hct 33.8 L, MCV 82.0, MCH 28.2, MCHC 34.3, RDW Std Deviation 40.4, RDW Coeff of Spencer 13.7, Plt Count 229, MPV 9.2, Immature Gran % (Auto) 0.300, Neut % (Auto) 72.4 H, Lymph % (Auto) 20.6, [place] % (Auto) 4.4, Eos % (Auto) 1.6, Baso % (Auto) 0.7, Absolute Neuts (auto) 6.2, Absolute Lymphs (auto) 1.77, Nucleated RBC % 0, PT 13.2, INR 1.0, APTT 79.3 H, Sodium 136, Potassium 2.5 L*, Chloride 102, Carbon Dioxide 23.8, Anion Gap 9, BUN 11, Creatinine 0.65 L, Estim Creat Clear Calc 107.70, Est GFR (MDRD) Non-Af 105, BUN/Creatinine Ratio 16.7, Glucose 293 H, Calcium 8.8, Total Bilirubin 0.61, AST 20, ALT 13, Alkaline Phosphatase 117 H, Total Protein 5.9, Albumin 3.1 L, Globulin 2.9, Albumin/Globulin Ratio 1.1, TSH 1.180 Radiography Diagnostic Testing: Radiology Impression Chest X-Ray 08/26/24 10:40 IMPRESSION: No acute cardiopulmonary process. Reading Location: [facility] Venous Doppler Study 08/26/24 10:40 Interpretation Summary Deep veins of the left lower extremity are patent and compressible segmentally. There is no evidence of left lower extremity deep vein thrombosis. The left great saphenous vein appears patent and compressible segmentally. Incidental finding, right SFA stent occlusion Ordering Physician: Jesse Abrams Referring Phys[facility]: [facility] Performed By: Héctor Ayoub, RVT Lower Extremity CTA 08/26/24 14:00 IMPRESSION: Technically limited study as described. Severe multilevel disease as described level by level above. Interventional radiology consultation may be appropriate. Reading Location: [facility] Physical Exam Const alert, oriented x3 and well nourished; Negative for no apparent distress, average body habitus or healthy appearing Constitutional Narrative: Middle-aged, white female who appears much older than stated age, sitting up in bed complaining of pain, nursing at bedside getting pain medication, appears uncomfortable but not toxic HEENT head/scalp atraumatic and moist oral mucous membranes HEENT Narrative: Dentition is poor, Mallampati is 3, no thrush Head and Scalp: normocephalic Resp normal respiratory effort, no retractions, no use of accessory muscles and clear to auscultation bilaterally Resp Narrative: Diffusely diminished but clear Auscultation: Negative for rales, rhonchi or wheezes Cardio regular rate, regular rhythm, S1 normal heart sound, S2 normal heart sound, no murmurs, no rub, no gallops and no clicks GI normal to inspection, nondistended, normoactive bowel sounds, soft to palpation and non-tender Extremity Extremity Narrative: Transmetatarsal amputation left lower extremity, foot is erythematous and warm, dorsalis pedis pulses are faint but present by palpation, cap refill is slightly delayed, no clubbing or cyanosis, previous amputation of second digit on her right foot noted as well, skin is dry Neuro oriented x3 and moves all extremities Neuro Narrative: Decree sensation bilateral lower extremities Speech: speech normal Psych Psych Narrative: Is flat and mood seems depressed patient tearful Assessment & Plan Assessment/Plan (1) 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: (2) Uncontrolled diabetes mellitus: PLAN: Plan Intractable left lower extremity pain -Lower extremity Dopplers unremarkable -CTA with runoff shows severe disease however per discussion today with vascular surgery do not believe this is the etiology of her leg pain as she does have good flow on exam -Will continue heparin drip for now per discussion with vascular surgery -ABIs ordered -Concern for radiculopathy so MRI of the lumbar spine was ordered -Patient does have previous compression fractures -PT/OT consultation -Case management/SW consultation for assistance with discharge planning as we do suspect she may need placement History of compression fractures of L3 and L5 -MRI as noted above Possible esophagitis/chronic GERD -Noted on CT of the abdomen pelvis from previous admission -Continue home PPI once medications have been verified -Will again make outpatient referral to GI at the time of discharge for EGD and colonoscopy It does not appear patient ever followed up after her last discharge-On 07/03/2024 DM-2 -Appears to be uncontrolled as A1c on 02/15/2024 was 9.8 -Continue SSI -Awaiting for verification of home medications -Continue SSI -Accu-Cheks as ordered -Cardiac/carb controlled diet CAD/chronic combined heart failure/chronic hypotension/hyperlipidemia -It appears medication compliance is an issue -Last echocardiogram on 05/04/2023 showed EF of 15% with severe segmental systolic dysfunction-, stage III diastolic dysfunction and moderate eccentric mitral valve insufficiency -Continue home Lasix as patient currently appears euvolemic -Continue aspirin and beta-linda -Await verification of the rest of her medication and then will reinitiate as appropriate Severe peripheral vascular disease -Previous stent about 1 year ago -Vascular surgery is currently following -ABIs are pending -continue heparin drip for now -Continue aspirin and statin -has required previous amputations as a result of what appears to be her peripheral vascular disease Depression -Restart home medications as verified Tobacco abuse -Recommend cessation -Nicotine patch if patient desires DVT prophylaxis -Currently on heparin drip will continue and then transition to subcu enoxaparin if heparin drip able to be discontinued CODE STATUS -Full code Charges/Coding Visit Charges Inpatient E&M: 25621 Subs Hosp L2
--- NOTE | 2024-08-27 09:23 | NURSING ---
Pt off floor to MRI via rad RN
[2024-08-27] MEDS: Lorazepam 2 MG/ML WCH Syringe IV (09:50)
[2024-08-27 11:52] LABS: Partial Thromboplast Time 44.8 Seconds (24.1-36.2)
[2024-08-27 12:12] LABS: Anion Gap 10 (5-15); BUN 12 mg/dL (4-19); BUN/Creat Ratio 15.2 RATIO (10-20); Calcium,Total 8.8 mg/dL (7.6-11.0); Carbon Dioxide 24.9 mmol/L (21.0-32.0); Chloride 103 mmol/L (98-108); Creatinine, Serum 0.79 mg/dL (0.70-1.20); EST Glomerular Filtration Rate 89 (>60); Estimated Creatinine Clearance 89.03 ml/min (50-250); Glucose 274 mg/dL (70-99); Potassium 2.8 mmol/L (3.3-5.1); Sodium Level 137 mmol/L (133-145)
--- NOTE | 2024-08-27 13:28 | CASEMGMT ---
CHAYITO BARKLEY Assessment Face to Face with patient for initial transition planning/care coordination assessment. CHAYITO BARKLEY introduced self and role at [facility], pt voices understanding. Pt is A&Ox4 and is resting comfortably in bed and is calm. Care providers, pharmacy, and demographics verified. Admitting dx: Arterial Stenosis LACE Strata: 3 PCP: Zohreh Pratt [facility] Specialists: Denies Preferred Pharmacy: [facility] Insurance: [employer] Prescription Benefit: Yes LNOK: Rebecca Dueñas (Mother), Ashlee Jackson (Daughter) Living Arrangements: Pt lives with her 21 y/o daughter and her daughter's BF (Ke) in a 2 story apartment with a FFSU and one step to enter ADLs/IADLs: Pt states that her daughter and daughters BF helps at home Transportation: Pt states that her and her daughter do not drive. Ke provides transportation. Pt denies concerns DME: Home oxygen through [employer]. Verified current order states 2L HS only via [place]. Pt also has a BGM with sufficient supplies. Raised toilet seat. Hospital bed. Cane. FWW. Rollator. HHC/SNF: History at [facility] and [facility]. Denies HH history Pt?s goal: Return to PLOF prior to returning home Plan: Anticipate SNF at the time of DC. Pt requesting to this CHAYITO BARKLEY to go to [facility] again at the time of DC. Current 6-Click score is 13. Therapy is pending. updated and aware. Pt denies further questions or concerns at this time. Care Management to follow. Zulay Gaming RN, CM
--- NOTE | 2024-08-27 13:32 | CASEMGMT ---
Social Work- SW was notified that pt would like referral to [facility]. HUY notified of referral request. KIKE remains available to follow. SANDRA Duncan
[2024-08-27] MEDS: Insulin Lispro 100 UNIT/ML INSULN.PEN SC ×3 (13:37→20:17)
[2024-08-27] MEDS: Potassium Chloride 10mEq/100mL 10 MEQ/100 ML IV.SOLN. 100 MEQ IV BOLUS ×6 (13:53→18:26)
[2024-08-27 14:03] LABS: Bedside Glucose 225 mg/dL (74-106)
--- NOTE | 2024-08-27 15:45 | CASEMGMT ---
Discharge Planning Referral sent to [facility]. Arelis Ngo DC Planning Asst.
[2024-08-27 17:03] LABS: Bedside Glucose 205 mg/dL (74-106)
[2024-08-27] MEDS: Atorvastatin Calcium 80 MG Tablet PO (20:21)
[2024-08-27] MEDS: MELATONIN 3 MG TABLET PO (20:21)
[2024-08-27] MEDS: Haloperidol 1 MG Tablet PO (20:21)
[2024-08-27] MEDS: Carvedilol 3.125 MG TABLET PO (20:21)
[2024-08-27] MEDS: Gabapentin 300 MG Capsule PO (20:21)
[2024-08-27] MEDS: Insulin Glargine-YFGN 100 UNIT/ML Pen 20 UNIT SC (20:32)
[2024-08-27 22:22] LABS: Bedside Glucose 203 mg/dL (74-106)
[2024-08-28] VITALS (8 sets, daily range): BP systolic 88–116; BP diastolic 53–73; PULSE 81–96; RESP 15–18; TEMP 36.6–36.9; O2SAT 94–100; BMI 27.4
[2024-08-28] MEDS: Morphine 2 MG/ML Syringe IV ×2 (01:21→07:10)
[2024-08-28] MEDS: Gabapentin 300 MG Capsule PO (05:13)
[2024-08-28] MEDS: oxyCODONE 5 MG Tablet PO (05:13)
[2024-08-28] MEDS: Acetaminophen 500 MG Tablet 1000 MG PO ×3 (05:14→21:07)
[2024-08-28] MEDS: Insulin Lispro 100 UNIT/ML INSULN.PEN SC ×4 (05:14→21:05)
[2024-08-28] MEDS: Haloperidol 1 MG Tablet PO ×3 (05:14→21:04)
[2024-08-28 07:20] LABS: Absolute Lymphocyte Count 1.79 X10^3/uL (0.83-4.51); Absolute Neutrophil Count 5.2 X10^3/uL (2.0-7.7); Basophil# 0.04 X10^3/uL; Basophil% 0.5 % (0-1); Eosinophil# 0.24 X10^3/uL; Hematocrit 34.8 % (37-47); Hemoglobin 11.7 g/dL (12.0-15.0); Lymphocyte # 1.79 X10^3/ul (0.83-4.51); Lymphocyte % 22.7 % (19-41); Mean Corp Hgb Conc 33.6 g/dL (32-36); Mean Corpuscular Hgb 27.8 pg (27.0-32.0); Mean Corpuscular Volume 82.7 fL (81-99); Mean Platelet Vol. 9.8 fl (6.2-12.0); Monocyte# 0.53 X10^3/uL; Monocyte% 6.7 % (0-10); NRBC Flagged by Analyzer 0.3 % (0-5); Neutrophil # 5.24 X10^3/uL (2.7-7.7); Neutrophil % 66.7 % (47-70); Platelet Count 203 K/mm3 (150-450); RBC Distribution Width CV 14.3 % (11.6-14.6); RBC Distribution Width SD 42.4 fl (35.1-43.9); Red Blood Count 4.21 M/mm3 (4.2-5.4); White Blood Count 7.9 K/mm3 (4.4-11.0)
[2024-08-28 07:56] LABS: Bedside Glucose 157 mg/dL (74-106)
[2024-08-28] MEDS: Aspirin 81 MG TAB.CHEW PO (07:56)
[2024-08-28 08:12] LABS: Magnesium 2.1 mg/dL (1.5-2.2); Phosphorus 2.7 mg/dL (2.7-4.5)
[2024-08-28 08:42] LABS: ALB/GLOB Ratio 1.1 RATIO (0.9-2.4); AST(SGOT) 20 U/L (<=31); Alanine Aminotransfer ALT/SGPT 11 U/L (<=34); Albumin, Serum 3.2 g/dL (3.5-5.0); Alkaline Phosphatase 115 U/L (35-104); Anion Gap 10 (5-15); BUN 19 mg/dL (4-19); BUN/Creat Ratio 27.2 RATIO (10-20); Calcium,Total 9.1 mg/dL (7.6-11.0); Carbon Dioxide 21.5 mmol/L (21.0-32.0); Chloride 104 mmol/L (98-108); Creatinine, Serum 0.71 mg/dL (0.70-1.20); EST Glomerular Filtration Rate 101 (>60); Estimated Creatinine Clearance 99.53 ml/min (50-250); Glucose 159 mg/dL (70-99); Potassium 3.8 mmol/L (3.3-5.1); Protein, Total 6.3 g/dL (5.9-8.4); Sodium Level 135 mmol/L (133-145); Total Bilirubin 0.53 mg/dL (0.00-1.30)
--- NOTE | 2024-08-28 08:56 | CASEMGMT ---
Discharge Planning A list of?SNF providers including quality and resource use data and consistent with the patient's preferred geographic region, medical needs, and insurance network was created in [facility].? This list was provided to the pt. It was explained to pt that [facility] first choice[facility], is no longer in network with [facility] but they are attempting to get a one time contract. If this is unsuccessful, pt would like a referral made to [facility]. Pt states that she needs a facility that allows smoking. SW updated. Arelis Ngo, Discharge Planning Asst.
[2024-08-28] MEDS: Carvedilol 3.125 MG TABLET PO (10:07)
[2024-08-28] MEDS: Furosemide 20 MG Tablet PO (10:07)
[2024-08-28] MEDS: Pantoprazole Sodium 40 MG Tablet PO (10:08)
[2024-08-28] MEDS: Enoxaparin 40 MG/0.4 ML Syringe SC (10:08)
[2024-08-28] MEDS: Clopidogrel Bisulfate 75 MG Tablet PO (10:08)
[2024-08-28] MEDS: oxyCODONE 5 MG Tablet 10 MG PO ×2 (10:09→21:05)
--- NOTE | 2024-08-28 10:44 | CASEMGMT ---
Addendum entered by Arelis Ngo 08/28/24 11:17: [facility] accepted and will submit for precert. Arelis Ngo DC Planning Asst. Original Note: Discharge Planning Referral sent to [facility]. Arelis Ngo DC Planning Asst.
--- NOTE | 2024-08-28 11:17 | CASEMGMT ---
Discharge Planinng Pt updated that [facility] has not yet responded in regards to obtaining a one time contract. She was agreeable to proceeding with [facility]. Both snfs and SW updated. Arelis Ngo DC Planning Asst.
[2024-08-28 11:30] LABS: Bedside Glucose 192 mg/dL (74-106)
[2024-08-28] MEDS: Menthol/Lanolin/Calamine/Znox 113 GM Tube 1 APPLIC TOPICAL ×2 (14:28→21:08)
[2024-08-28] MEDS: Gabapentin 300 MG Capsule 600 MG PO ×2 (14:28→21:04)
[2024-08-28 16:48] LABS: Bedside Glucose 176 mg/dL (74-106)
--- NOTE | 2024-08-28 17:55 | PCM.PN.HOSP ---
Reason for Visit Reason for Visit: Left leg pain Subjective Subjective Patient is complaining of pain however she is falling asleep while watching Karlos Doo. No other issues at this time. Objective Data Objective Data Vital Signs: Vital Signs Temp Pulse Resp BP Pulse Ox O2 Del Method 98.0 F 86 16 91/57 L 94 Room Air 08/28/24 15:25 08/28/24 15:25 08/28/24 15:25 08/28/24 15:25 08/28/24 15:08/28/24 15:25 Oxygen Delivery Method Room Air Weight: 79.6 kg Body Mass Index (BMI) 27.4 Intake & Output: Intake and Output for Last 24 Hours 08/26/24 08/27/24 08/28/24 23:59 23:59 23:59 Intake Total 500 / 860 1118.18 / 1118.18 Output Total 900 / 900 Balance 500 / 710 218.18 / 218.18 Lab / Micro Data 08/28/24 06:39 08/28/24 06:39 Labs: Laboratory Results - last 24 hr 08/27/24 20:16: POC Glucose 203 H 08/28/24 05:13: POC Glucose 157 H 08/28/24 06:39: WBC 7.9, RBC 4.21, Hgb 11.7 L, Hct 34.8 L, MCV 82.7, MCH 27.8, MCHC 33.6, RDW Std Deviation 42.4, RDW Coeff of Spencer 14.3, Plt Count 203, MPV 9.8, Immature Gran % (Auto) 0.400, Neut % (Auto) 66.7, Lymph % (Auto) 22.7, [place] % (Auto) 6.7, Eos % (Auto) 3.0, Baso % (Auto) 0.5, Absolute Neuts (auto) 5.2, Absolute Lymphs (auto) 1.79, Nucleated RBC % 0.3, Sodium 135, Potassium 3.8, Chloride 104, Carbon Dioxide 21.5, Anion Gap 10, BUN 19, Creatinine 0.71, Estim Creat Clear Calc 99.53, Est GFR (MDRD) Non-Af 101, BUN/Creatinine Ratio 27.2 H, Glucose 159 H, Calcium 9.1, Phosphorus 2.7, Magnesium 2.1, Total Bilirubin 0.53, AST 20, ALT 11, Alkaline Phosphatase 115 H, Total Protein 6.3, Albumin 3.2 L, Globulin 3.0, Albumin/Globulin Ratio 1.1 08/28/24 11:03: POC Glucose 192 H 08/28/24 16:27: POC Glucose 176 H Physical Exam Const alert, oriented x3 and well nourished; Negative for no apparent distress, average body habitus or healthy appearing Constitutional Narrative: Middle-aged, white female who appears much older than stated age, lying in bed dozing off watching Karlos Doo, appears comfortable, nontoxic HEENT head/scalp atraumatic and moist oral mucous membranes HEENT Narrative: Edentulous Head and Scalp: normocephalic Resp normal respiratory effort, no retractions, no use of accessory muscles and clear to auscultation bilaterally Resp Narrative: Diffusely diminished but clear Auscultation: Negative for rales, rhonchi or wheezes Cardio regular rate, regular rhythm, S1 normal heart sound, S2 normal heart sound, no murmurs, no rub, no gallops and no clicks GI normal to inspection, nondistended, normoactive bowel sounds, soft to palpation and non-tender Neuro oriented x3 and moves all extremities Neuro Narrative: Decree sensation bilateral lower extremities Speech: speech normal Psych Psych Narrative: Is flat and mood seems depressed patient tearful Assessment & Plan Assessment/Plan (1) 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: (2) Uncontrolled diabetes mellitus: PLAN: Plan Intractable left lower extremity pain -Lower extremity Dopplers unremarkable -CTA with runoff shows severe disease however per discussion today with vascular surgery do not believe this is the etiology of her leg pain as she does have good flow on exam -Heparin drip discontinued -ABIs abnormal but not significantly abnormal to the point any interventions required at this time -Concern for radiculopathy so MRI of the lumbar spine was ordered -Patient does have previous compression fractures -PT/OT following -Case management/SW following and plan is for discharge to skilled facility once acceptance and pre-CERT is obtained History of compression fractures of L3 and L5 -MRI as noted above Possible esophagitis/chronic GERD -Noted on CT of the abdomen pelvis from previous admission -Continue home PPI once medications have been verified -Will again make outpatient referral to GI at the time of discharge for EGD and colonoscopy It does not appear patient ever followed up after her last discharge-On 07/03/2024 DM-2 -Appears to be uncontrolled as A1c on 02/15/2024 was 9.8 -AM fasting blood sugar was 159 -Will continue 20 units subcu basal insulin at this time and continue to follow -Continue SSI -Accu-Cheks as ordered -Cardiac/carb controlled diet CAD/chronic combined heart failure/chronic hypotension/hyperlipidemia -It appears medication compliance is an issue -Last echocardiogram on 05/04/2023 showed EF of 15% with severe segmental systolic dysfunction-, stage III diastolic dysfunction and moderate eccentric mitral valve insufficiency -Continue home Lasix as patient currently appears euvolemic -Continue aspirin and beta-linda -Await verification of the rest of her medication and then will reinitiate as appropriate Severe peripheral vascular disease -Previous stent about 1 year ago -Vascular surgery is currently following -ABIs abnormal but no acute intervention required -Heparin was able to be discontinued last evening -Continue aspirin/Plavix and statin -has required previous amputations as a result of what appears to be her peripheral vascular disease Depression -Restart home medications as verified Tobacco abuse -Recommend cessation -Nicotine patch if patient desires DVT prophylaxis -Continue enoxaparin 40 daily CODE STATUS -Full code Charges/Coding Visit Charges Inpatient E&M: 03141 Subs Hosp L2
[2024-08-28] MEDS: Insulin Glargine-YFGN 100 UNIT/ML Pen 20 UNIT SC (21:05)
[2024-08-28] MEDS: MELATONIN 3 MG TABLET PO (21:05)
[2024-08-28] MEDS: Atorvastatin Calcium 80 MG Tablet PO (21:07)
[2024-08-28 21:31] LABS: Bedside Glucose 182 mg/dL (74-106)
[2024-08-29 02:38] VITALS: BP 110/70; PULSE 91; RESP 18; TEMP 36.6; O2SAT 97
[2024-08-29] MEDS: oxyCODONE 5 MG Tablet 10 MG PO ×4 (02:42→21:06)
[2024-08-29 05:53] VITALS: BMI 27.6
[2024-08-29] MEDS: Enoxaparin 40 MG/0.4 ML Syringe SC (06:50)
[2024-08-29] MEDS: Gabapentin 300 MG Capsule 600 MG PO ×3 (06:50→21:05)
[2024-08-29] MEDS: Acetaminophen 500 MG Tablet 1000 MG PO ×3 (06:50→21:06)
[2024-08-29] MEDS: Senna/Docusate Sodium 1 Tablet 2 TABLET PO (06:50)
[2024-08-29] MEDS: Menthol/Lanolin/Calamine/Znox 113 GM Tube 1 APPLIC TOPICAL ×3 (06:50→21:07)
[2024-08-29] MEDS: Haloperidol 1 MG Tablet PO ×3 (06:50→21:05)
[2024-08-29 06:53] LABS: Absolute Neutrophil Count 5.8 X10^3/uL (2.0-7.7); Basophil# 0.05 X10^3/uL; Basophil% 0.6 % (0-1); Eosinophil# 0.22 X10^3/uL; Eosinophils% 2.4 % (0-5); Hematocrit 33.7 % (37-47); Hemoglobin 11.2 g/dL (12.0-15.0); Lymphocyte % 24.4 % (19-41); Mean Corp Hgb Conc 33.2 g/dL (32-36); Mean Corpuscular Hgb 28.2 pg (27.0-32.0); Mean Corpuscular Volume 84.9 fL (81-99); Mean Platelet Vol. 9.3 fl (6.2-12.0); Monocyte# 0.69 X10^3/uL; Monocyte% 7.6 % (0-10); NRBC Flagged by Analyzer 0 % (0-5); Neutrophil # 5.83 X10^3/uL (2.7-7.7); Neutrophil % 64.7 % (47-70); Platelet Count 205 K/mm3 (150-450); RBC Distribution Width SD 43.4 fl (35.1-43.9); Red Blood Count 3.97 M/mm3 (4.2-5.4)
--- NOTE | 2024-08-29 07:05 | NURSING ---
pt pulled out midline cath. site intact. pt nauseous, this RN texted [facility] and asked if we could switch zofran to po. also asked if pt likely going to snf later today, can we leave line out. Ronnie agreeable. see new orders.
[2024-08-29 07:19] LABS: Bedside Glucose 93 mg/dL (74-106)
[2024-08-29 07:49] LABS: Anion Gap 10 (5-15); BUN 26 mg/dL (4-19); BUN/Creat Ratio 32.2 RATIO (10-20); Calcium,Total 8.9 mg/dL (7.6-11.0); Carbon Dioxide 21.3 mmol/L (21.0-32.0); Chloride 104 mmol/L (98-108); EST Glomerular Filtration Rate 89 (>60); Estimated Creatinine Clearance 88.59 ml/min (50-250); Glucose 104 mg/dL (70-99); Potassium 3.7 mmol/L (3.3-5.1); Sodium Level 135 mmol/L (133-145)
[2024-08-29 08:04] VITALS: BP 109/67; PULSE 90; RESP 16; TEMP 36.5; O2SAT 98
[2024-08-29] MEDS: Midodrine HCl 5 MG Tablet 10 MG PO ×3 (08:11→16:46)
[2024-08-29] MEDS: proMETHazine 25 MG Tablet PO (08:11)
[2024-08-29] MEDS: Aspirin 81 MG TAB.CHEW PO (08:11)
--- NOTE | 2024-08-29 09:45 | TREXTCAR_ITS ---
Diet Diet Order/Speech Therapy: 08/27/24 15:12 Diet: Cardiac: Calorie-Controlled How many daily calories?: 1800 calorie Routine Orders/Code Status Suppository Frequency: Daily PRN Routine Lab Work: CBC (2 weeks) and BMP (2 weeks) Code Status: Full Code DC O2, CPAP, BIPAP needs Home O2 Discharge instructions: No Suggestions for Active Care Change Position every (hours): 2 Hours to sit in a chair: 3 Times a day to sit in chair: 2 Therapies Weight Bearing: Weight bearing as tolerated Extremity Affected:: Left Lower Physical Therapy: Eval and Treat Occupational Therapy: Eval and Treat Problem/Diagnosis (1) 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: Status: Acute Code(s): M79.2 - Neuralgia and neuritis, unspecified (2) Uncontrolled diabetes mellitus: Status: Acute Allergies/Procedures Done in Hospital Allergies latex Allergy (Verified 08/01/24 13:46) Hives Procedures: - (Chest x-ray/venous duplex/CTA lower extremity/VIRY/lumbar MRI) Type of Care/Length of Stay Estimated LOS: Convalescent Care Less Than 30 days Type of Care Needed: Skilled Rehab Potential: Fair Prognosis: Fair Additional Orders/Day of Discharge Day of Discharge: 08/29/24 Dietary and Speech Recommendations Dietitian Recommendations/Changes: Adjust to cardiac; 1800 calorie controlled/consistent carbohydrate. Will monitor weight trends. Follow Up Care Please follow up with your Primary Care Physician in: 1 week after discharge from SNF Please Follow Up With: Belén Lugo MD When: 1-2 weeks Discharge Plan Admission Admit Date/Time: 08/26/24 20:03 Attending Provider: Nicole Trujillo Primary Care Provider: Zohreh Pratt [facility] Consulting Providers: Brenda Posadas; Riccardo Ng Discharge Orders/Prescriptions Prescriptions: No Action pantoprazole 40 mg tablet,delayed release (DR/EC) 40 mg PO DAILY aspirin 81 mg Capsule 81 mg PO DAILY clopidogrel 75 mg Tablet 75 mg PO DAILY Qty: 30 0RF Patient Comments: patient stated pretty sure I still take that sacubitril-valsartan [Entresto] 24-26 mg Tablet 1 tab PO BID 30 Days Qty: 60 0RF insulin glargine [Lantus Solostar U-100 Insulin] 100 unit/mL (3 mL) insulin pen 25 unit subcut DAILY insulin lispro 100 unit/mL insulin pen, half-unit 1 sliding scale dose subcut TIDCM Patient Comments: patient does not know sliding scale atorvastatin 80 mg tablet 80 mg PO QHS gabapentin 300 mg Capsule 300 mg PO TID tizanidine 4 mg tablet 4 mg PO 3XD gabapentin 400 mg capsule 400 mg 3XD midodrine 2.5 mg tablet PO PRN furosemide 20 mg tablet 20 mg PO DAILY escitalopram oxalate 20 mg tablet 20 mg PO DAILY sennosides-docusate sodium [Stimulant Laxative Plus] 8.6-50 mg Tablet 2 tab PO BID PRN (Reason: constipation) polyethylene glycol 3350 [Miralax] 17 gram/dose powder 17 g PO BID PRN (Reason: constipation) haloperidol 1 mg tablet 1 mg PO TID Qty: 21 0RF Rx Instructions: for nausea hydrocodone-acetaminophen 5-325 mg tablet 1 tab PO Q6H PRN (Reason: Pain) cholecalciferol (vitamin D3) 1,250 mcg (50,000 unit) tablet 1,250 mcg PO WE DIC 2%/RINKU 6%/LIDOC 2% IN saltsable cream 1 - 2 pump subdermal Q6H PRN (Reason: FOR FEET) spironolactone 25 mg tablet 25 mg PO DAILY 30 Days Qty: 0 0RF ergocalciferol (vitamin D2) [Vitamin D2] 1,250 mcg (50,000 unit) Capsule 1,250 mcg PO We@1000 Qty: 0 0RF carvedilol 3.125 mg tablet 6.25 mg PO BID 30 Days Qty: 0 0RF Rx Instructions: Hold for heart less than 50 or systolic blood pressure less than 100 mmHg. insulin glargine [Lantus Solostar U-100 Insulin] 100 unit/mL (3 mL) insulin pen 20 unit subcut QPM 30 Days Qty: 0 0RF Rx Instructions: Hold if glucose less than 130 mg/dl ondansetron HCl 4 mg tablet 4 mg PO Q8H Qty: 10 0RF Referrals / Follow Up: Zohreh Pratt, [employer] [Primary Care Provider] -
[2024-08-29 09:55] VITALS: BP 126/75; PULSE 96
--- NOTE | 2024-08-29 09:59 | CASEMGMT ---
Social Work 7000 exemption form completed in [facility] for SNF placement. SANDRA Garcia
[2024-08-29] MEDS: Furosemide 20 MG Tablet PO (10:03)
[2024-08-29] MEDS: Carvedilol 3.125 MG TABLET PO ×2 (10:03→21:06)
[2024-08-29] MEDS: Clopidogrel Bisulfate 75 MG Tablet PO (10:04)
[2024-08-29] MEDS: Pantoprazole Sodium 40 MG Tablet PO (10:04)
[2024-08-29] MEDS: Escitalopram Oxalate 20 MG Tablet PO (10:04)
[2024-08-29 11:30] LABS: Bedside Glucose 156 mg/dL (74-106)
--- NOTE | 2024-08-29 12:18 | CASEMGMT ---
[facility] asked to call the floor if precert is rec'd after business hours or over the weekend. Green sheet and transport form placed on chart. Arelis Nog DC Planning Asst.
[2024-08-29] MEDS: Insulin Lispro 100 UNIT/ML INSULN.PEN SC ×3 (12:21→21:05)
--- NOTE | 2024-08-29 13:59 | CASEMGMT ---
Discharge Planning Requested clinical updates sent to [facility]. Arelis Ngo DC Planning Asst
[2024-08-29 14:33] VITALS: BP 117/77; PULSE 84; RESP 16; TEMP 36.7; O2SAT 98
[2024-08-29 16:45] VITALS: BP 122/68; PULSE 91
--- NOTE | 2024-08-29 16:47 | PCM.PN.HOSP ---
Reason for Visit Reason for Visit: Left leg pain Subjective Subjective Patient currently sitting up in bed watching television, appears comfortable, nontoxic, not complaining of any significant pain or nausea or vomiting at this time. Objective Data Objective Data Vital Signs: Vital Signs Temp Pulse Resp BP Pulse Ox O2 Del Method 98.0 F 91 16 122/68 H 98 Room Air 08/29/24 14:33 08/29/24 16:45 08/29/24 14:33 08/29/24 16:45 08/29/24 14:33 08/29/24 15:08 Oxygen Delivery Method Room Air Weight: 80.1 kg Body Mass Index (BMI) 27.6 Intake & Output: Intake and Output for Last 24 Hours 08/27/24 08/28/24 08/29/24 23:59 23:59 23:59 Intake Total 1118.18 / 1118.18 Output Total 900 / 900 Balance 218.18 / 218.18 Lab / Micro Data 08/29/24 06:32 08/29/24 06:32 Labs: Laboratory Results - last 24 hr 08/28/24 16:27: POC Glucose 176 H 08/28/24 21:04: POC Glucose 182 H 08/29/24 06:32: WBC 9.0, RBC 3.97 L, Hgb 11.2 L, Hct 33.7 L, MCV 84.9, MCH 28.2, MCHC 33.2, RDW Std Deviation 43.4, RDW Coeff of Spencer 14.0, Plt Count 205, MPV 9.3, Immature Gran % (Auto) 0.300, Neut % (Auto) 64.7, Lymph % (Auto) 24.4, [place] % (Auto) 7.6, Eos % (Auto) 2.4, Baso % (Auto) 0.6, Absolute Neuts (auto) 5.8, Absolute Lymphs (auto) 2.20, Nucleated RBC % 0, Sodium 135, Potassium 3.7, Chloride 104, Carbon Dioxide 21.3, Anion Gap 10, BUN 26 H, Creatinine 0.80, Estim Creat Clear Calc 88.59, Est GFR (MDRD) Non-Af 89, BUN/Creatinine Ratio 32.2 H, Glucose 104 H, Calcium 8.9 08/29/24 06:49: POC Glucose 93 08/29/24 11:11: POC Glucose 156 H Physical Exam Const alert, oriented x3 and well nourished; Negative for no apparent distress, average body habitus or healthy appearing Constitutional Narrative: Middle-aged, white female who appears much older than stated age, sitting up in bed watching television, appears comfortable, nontoxic HEENT head/scalp atraumatic Head and Scalp: normocephalic Resp normal respiratory effort, no retractions, no use of accessory muscles and clear to auscultation bilaterally Resp Narrative: Diffusely diminished but clear Auscultation: Negative for rales, rhonchi or wheezes Cardio regular rate, regular rhythm, S1 normal heart sound, S2 normal heart sound, no murmurs, no rub, no gallops and no clicks GI normal to inspection, nondistended, normoactive bowel sounds, soft to palpation and non-tender Extremity Extremity Narrative: Transmetatarsal amputation left lower extremity, foot is erythematous and warm, dorsalis pedis pulses are faint but present by palpation, cap refill is slightly delayed, no clubbing or cyanosis, previous amputation of second digit on her right foot noted as well, skin is dry Neuro oriented x3 and moves all extremities Neuro Narrative: Decree sensation bilateral lower extremities Speech: speech normal Psych Psych Narrative: Is flat and mood seems depressed patient tearful Assessment & Plan Assessment/Plan (1) 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: (2) Uncontrolled diabetes mellitus: PLAN: Plan Intractable left lower extremity pain -Lower extremity Dopplers unremarkable -CTA with runoff shows severe disease however per discussion today with vascular surgery do not believe this is the etiology of her leg pain as she does have good flow on exam -ABIs abnormal but not significantly abnormal to the point any interventions required at this time -Concern for radiculopathy so MRI of the lumbar spine was ordered -Patient does have previous compression fractures -PT/OT following -Case management/SW following and plan is for discharge to skilled facility once acceptance and pre-CERT is obtained History of compression fractures of L3 and L5 -MRI as noted above Possible esophagitis/chronic GERD -Noted on CT of the abdomen pelvis from previous admission -Continue home PPI once medications have been verified -Will again make outpatient referral to GI at the time of discharge for EGD and colonoscopy It does not appear patient ever followed up after her last discharge-On 07/03/2024 DM-2 -Appears to be uncontrolled as A1c on 02/15/2024 was 9.8 -AM fasting blood sugar was 109 -Will continue 20 units subcu basal insulin at this time and continue to follow -Continue SSI -Accu-Cheks as ordered -Cardiac/carb controlled diet CAD/chronic combined heart failure/chronic hypotension/hyperlipidemia -It appears medication compliance is an issue -Last echocardiogram on 05/04/2023 showed EF of 15% with severe segmental systolic dysfunction-, stage III diastolic dysfunction and moderate eccentric mitral valve insufficiency -Continue home Lasix as patient currently appears euvolemic -Continue aspirin and beta-linda -Continue statin Severe peripheral vascular disease -Previous stent about 1 year ago -Vascular surgery is currently following -ABIs abnormal but no acute intervention required -Heparin was able to be discontinued last evening -Continue aspirin/Plavix and statin -has required previous amputations as a result of what appears to be her peripheral vascular disease Depression -Continue home medications Tobacco abuse -Recommend cessation -Nicotine patch if patient desires DVT prophylaxis -Continue enoxaparin 40 daily CODE STATUS -Full code Disposition: -Patient has been medically ready for discharge since 08/28/2024. Currently awaiting pre-CERT. Charges/Coding Visit Charges Inpatient E&M: 84850 Subs Hosp L1
[2024-08-29 16:50] LABS: Bedside Glucose 160 mg/dL (74-106)
[2024-08-29 19:43] VITALS: BP 127/73; PULSE 89; RESP 18; TEMP 36.4; O2SAT 98
[2024-08-29] MEDS: Insulin Glargine-YFGN 100 UNIT/ML Pen 20 UNIT SC (21:04)
[2024-08-29] MEDS: Atorvastatin Calcium 80 MG Tablet PO (21:05)
[2024-08-30 02:33] LABS: Bedside Glucose 318 mg/dL (74-106)
[2024-08-30 02:50] VITALS: BP 136/77; PULSE 89; RESP 18; TEMP 36.6; O2SAT 100
[2024-08-30] MEDS: oxyCODONE 5 MG Tablet 10 MG PO ×4 (02:57→20:41)
[2024-08-30] MEDS: Acetaminophen 500 MG Tablet 1000 MG PO ×3 (05:15→20:39)
[2024-08-30] MEDS: Haloperidol 1 MG Tablet PO ×3 (05:15→20:40)
[2024-08-30 05:16] VITALS: BMI 27.3
[2024-08-30] MEDS: Enoxaparin 40 MG/0.4 ML Syringe SC (05:16)
[2024-08-30] MEDS: Gabapentin 300 MG Capsule 600 MG PO ×3 (05:16→20:40)
[2024-08-30] MEDS: Menthol/Lanolin/Calamine/Znox 113 GM Tube 1 APPLIC TOPICAL ×3 (05:16→23:13)
[2024-08-30 05:41] LABS: Bedside Glucose 117 mg/dL (74-106)
[2024-08-30 10:02] VITALS: BP 109/75; PULSE 94; RESP 16; TEMP 36.6; O2SAT 99
[2024-08-30] MEDS: Aspirin 81 MG TAB.CHEW PO (10:08)
[2024-08-30] MEDS: Escitalopram Oxalate 20 MG Tablet PO (10:09)
[2024-08-30] MEDS: Clopidogrel Bisulfate 75 MG Tablet PO (10:09)
[2024-08-30] MEDS: Pantoprazole Sodium 40 MG Tablet PO (10:09)
[2024-08-30] MEDS: Midodrine HCl 5 MG Tablet 10 MG PO ×2 (10:09→12:24)
[2024-08-30] MEDS: Loperamide 2 MG Capsule PO (10:09)
[2024-08-30] MEDS: Furosemide 20 MG Tablet PO (10:09)
[2024-08-30] MEDS: Carvedilol 3.125 MG TABLET PO ×2 (10:09→20:40)
[2024-08-30 12:05] LABS: Bedside Glucose 152 mg/dL (74-106)
[2024-08-30 12:23] VITALS: BP 134/77
[2024-08-30] MEDS: Insulin Lispro 100 UNIT/ML INSULN.PEN SC ×3 (12:24→20:45)
[2024-08-30 14:52] VITALS: BP 131/68; PULSE 91; RESP 18; TEMP 36.2; O2SAT 99
--- NOTE | 2024-08-30 15:28 | PCM.PN.HOSP ---
Reason for Visit Reason for Visit: Left lower extremity pain Subjective Subjective No issues overnight. P.o. intake is good. Pain seems fairly well-controlled. Awaiting for pre-CERT. Patient with diarrhea overnight but C. difficile negative. Started Imodium. Objective Data Objective Data Vital Signs: Vital Signs Temp Pulse Resp BP Pulse Ox O2 Del Method 97.2 F L 91 18 131/68 H 99 Room Air 08/30/24 14:52 08/30/24 14:52 08/30/24 14:52 08/30/24 14:52 08/30/24 14:52 08/30/24 14:52 Oxygen Delivery Method Room Air Weight: 79.2 kg Body Mass Index (BMI) 27.3 Intake & Output: Intake and Output for Last 24 Hours 08/28/24 08/29/24 08/30/24 23:59 23:59 23:59 Intake Total 600 / 600 Balance 600 / 600 Lab / Micro Data 08/29/24 06:32 08/29/24 06:32 Labs: Laboratory Results - last 24 hr 08/29/24 16:32: POC Glucose 160 H 08/29/24 21:03: POC Glucose 318 H 08/30/24 05:22: POC Glucose 117 H 08/30/24 11:48: POC Glucose 152 H Micro: Microbiology 08/29/24 23:15 Stool Enteric Bacteriology - Final 08/29/24 23:15 Stool Clostridioides difficile (PCR) - Final Physical Exam Const alert, oriented x3 and well nourished; Negative for no apparent distress, average body habitus or healthy appearing Constitutional Narrative: Middle-aged, white female who appears much older than stated age, sitting upright in bed watching television, appears comfortable, nontoxic HEENT head/scalp atraumatic HEENT Narrative: Edentulous Head and Scalp: normocephalic Neuro moves all extremities Psych affect normal Psych Narrative: Appears comfortable, nontoxic Assessment & Plan Assessment/Plan (1) 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: (2) Uncontrolled diabetes mellitus: PLAN: Plan Intractable left lower extremity pain -Lower extremity Dopplers unremarkable -CTA with runoff shows severe disease however per discussion today with vascular surgery do not believe this is the etiology of her leg pain as she does have good flow on exam -ABIs abnormal but not significantly abnormal to the point any interventions required at this time -Concern for radiculopathy so MRI of the lumbar spine was ordered -Patient does have previous compression fractures -PT/OT following -Case management/SW following and plan is for discharge to skilled facility once acceptance and pre-CERT is obtained Diarrhea -Developed last evening -C. difficile ordered and negative -Enteric panel negative -As needed Imodium made available History of compression fractures of L3 and L5 -MRI as noted above Possible esophagitis/chronic GERD -Noted on CT of the abdomen pelvis from previous admission -Continue home PPI once medications have been verified -Will again make outpatient referral to GI at the time of discharge for EGD and colonoscopy It does not appear patient ever followed up after her last discharge-On 07/03/2024 DM-2 -Appears to be uncontrolled as A1c on 02/15/2024 was 9.8 -AM fasting blood sugar was 117 -Will continue 20 units subcu basal insulin at this time and continue to follow -Continue SSI -Accu-Cheks as ordered -Cardiac/carb controlled diet CAD/chronic combined heart failure/chronic hypotension/hyperlipidemia -It appears medication compliance is an issue -Last echocardiogram on 05/04/2023 showed EF of 15% with severe segmental systolic dysfunction-, stage III diastolic dysfunction and moderate eccentric mitral valve insufficiency -Continue home Lasix as patient currently appears euvolemic -Continue aspirin and beta-linda -Continue statin -Continue midodrine but decrease dose from 10 mg to 5 mg 3 times daily Severe peripheral vascular disease -Previous stent about 1 year ago -Vascular surgery is currently following -ABIs abnormal but no acute intervention required -Heparin was able to be discontinued last evening -Continue aspirin/Plavix and statin -has required previous amputations as a result of what appears to be her peripheral vascular disease Depression -Continue home medications Tobacco abuse -Recommend cessation -Nicotine patch if patient desires DVT prophylaxis -Continue enoxaparin 40 daily CODE STATUS -Full code Disposition: -Patient has been medically ready for discharge since 08/28/2024. Currently awaiting pre-CERT. Charges/Coding Visit Charges Inpatient E&M: 09116 Subs Hosp L1
[2024-08-30 16:30] VITALS: BP 121/69; PULSE 84
[2024-08-30] MEDS: proMETHazine 25 MG Tablet PO (16:32)
[2024-08-30] MEDS: Midodrine HCl 5 MG Tablet PO (16:32)
[2024-08-30 16:59] LABS: Bedside Glucose 253 mg/dL (74-106)
[2024-08-30 20:31] VITALS: BP 126/78; PULSE 87; RESP 16; TEMP 36.6; O2SAT 99
[2024-08-30] MEDS: Atorvastatin Calcium 80 MG Tablet PO (20:39)
[2024-08-30] MEDS: MELATONIN 3 MG TABLET PO (20:40)
[2024-08-30] MEDS: Insulin Glargine-YFGN 100 UNIT/ML Pen 20 UNIT SC (20:44)
[2024-08-30 23:31] LABS: Bedside Glucose 215 mg/dL (74-106)
[2024-08-31] MEDS: Loperamide 2 MG Capsule PO (00:18)
[2024-08-31 00:20] VITALS: BP 153/82; PULSE 83; RESP 16; TEMP 36.5; O2SAT 100
[2024-08-31] MEDS: oxyCODONE 5 MG Tablet 10 MG PO ×4 (00:37→21:44)
[2024-08-31 05:47] VITALS: BP 136/80; PULSE 81; RESP 18; TEMP 36.5; O2SAT 100
[2024-08-31] MEDS: Haloperidol 1 MG Tablet PO ×3 (05:49→21:46)
[2024-08-31] MEDS: Gabapentin 300 MG Capsule 600 MG PO ×3 (05:49→21:45)
[2024-08-31] MEDS: Enoxaparin 40 MG/0.4 ML Syringe SC (05:49)
[2024-08-31] MEDS: Menthol/Lanolin/Calamine/Znox 113 GM Tube 1 APPLIC TOPICAL ×3 (05:49→21:47)
[2024-08-31] MEDS: Acetaminophen 500 MG Tablet 1000 MG PO ×3 (05:49→21:46)
[2024-08-31 06:00] VITALS: BMI 27.3
--- NOTE | 2024-08-31 08:54 | PCM.PN.HOSP ---
Reason for Visit Reason for Visit: Left lower extremity pain-intractable Subjective Subjective No complaints from overnight. Diarrhea has resolved. No issues. Objective Data Objective Data Vital Signs: Vital Signs Temp Pulse Resp BP Pulse Ox O2 Del Method 97.7 F L 81 18 136/80 H 100 Room Air 08/31/24 05:47 08/31/24 05:47 08/31/24 05:47 08/31/24 05:47 08/31/24 05:47 08/31/24 05:47 Oxygen Delivery Method Room Air Weight: 79.1 kg Body Mass Index (BMI) 27.3 Intake & Output: Intake and Output for Last 24 Hours 08/29/24 08/30/24 08/31/24 23:59 23:59 23:59 Intake Total 600 / 600 Balance 600 / 600 Lab / Micro Data 08/29/24 06:32 08/29/24 06:32 Labs: Laboratory Results - last 24 hr 08/30/24 11:48: POC Glucose 152 H 08/30/24 16:25: POC Glucose 253 H 08/30/24 20:34: POC Glucose 215 H Micro: Microbiology 08/29/24 23:15 Stool Enteric Bacteriology - Final 08/29/24 23:15 Stool Clostridioides difficile (PCR) - Final Physical Exam Const alert, oriented x3 and well nourished; Negative for no apparent distress, average body habitus or healthy appearing Constitutional Narrative: Middle-aged, white female who appears much older than stated age, sitting upright in bed watching cartoons on television, appears comfortable, nontoxic HEENT head/scalp atraumatic and moist oral mucous membranes HEENT Narrative: Edentulous, Mallampati 2, no thrush Head and Scalp: normocephalic Cardio regular rate, regular rhythm, S1 normal heart sound, S2 normal heart sound, no murmurs, no rub, no gallops and no clicks Psych affect normal Psych Narrative: Appears comfortable, nontoxic Assessment & Plan Assessment/Plan (1) 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: (2) Uncontrolled diabetes mellitus: PLAN: Plan Intractable left lower extremity pain -Lower extremity Dopplers unremarkable -CTA with runoff shows severe disease however per discussion today with vascular surgery do not believe this is the etiology of her leg pain as she does have good flow on exam -ABIs abnormal but not significantly abnormal to the point any interventions required at this time -Concern for radiculopathy so MRI of the lumbar spine was ordered -Patient does have previous compression fractures -PT/OT following -Case management/SW following and plan is for discharge to skilled facility once acceptance and pre-CERT is obtained Diarrhea -Now resolved History of compression fractures of L3 and L5 -MRI as noted above Possible esophagitis/chronic GERD -Noted on CT of the abdomen pelvis from previous admission -Continue home PPI once medications have been verified -Will again make outpatient referral to GI at the time of discharge for EGD and colonoscopy It does not appear patient ever followed up after her last discharge-On 07/03/2024 DM-2 -Appears to be uncontrolled as A1c on 02/15/2024 was 9.8 -AM fasting blood sugar was 126 -Will continue 20 units subcu basal insulin at this time and continue to follow -Prandial sugars have been elevated so we did go ahead and add 8 units of subcu prandial insulin along with sliding scale -Continue to trend -Continue SSI -Accu-Cheks as ordered -Cardiac/carb controlled diet CAD/chronic combined heart failure/chronic hypotension/hyperlipidemia -It appears medication compliance is an issue -Last echocardiogram on 05/04/2023 showed EF of 15% with severe segmental systolic dysfunction-, stage III diastolic dysfunction and moderate eccentric mitral valve insufficiency -Continue home Lasix as patient currently appears euvolemic -Continue aspirin and beta-linda -Continue statin -Continue midodrine 5 mg 3 times daily Severe peripheral vascular disease -Previous stent about 1 year ago -Vascular surgery is currently following -ABIs abnormal but no acute intervention required -Heparin was able to be discontinued last evening -Continue aspirin/Plavix and statin -has required previous amputations as a result of what appears to be her peripheral vascular disease Depression -Continue home medications Tobacco abuse -Recommend cessation -Nicotine patch if patient desires DVT prophylaxis -Continue enoxaparin 40 daily CODE STATUS -Full code Disposition: -Patient has been medically ready for discharge since 08/28/2024. We are continuing to wait for pre-CERT. Hopeful for tomorrow Charges/Coding Visit Charges Inpatient E&M: 90804 Subs Hosp L1
[2024-08-31 09:49] VITALS: BP 111/61; PULSE 85; RESP 18; TEMP 36.6; O2SAT 94
[2024-08-31] MEDS: Furosemide 20 MG Tablet PO (09:53)
[2024-08-31] MEDS: Midodrine HCl 5 MG Tablet PO ×3 (09:53→16:24)
[2024-08-31] MEDS: Carvedilol 3.125 MG TABLET PO ×2 (09:53→21:45)
[2024-08-31] MEDS: Aspirin 81 MG TAB.CHEW PO (09:53)
[2024-08-31] MEDS: Pantoprazole Sodium 40 MG Tablet PO (09:54)
[2024-08-31] MEDS: Clopidogrel Bisulfate 75 MG Tablet PO (09:54)
[2024-08-31] MEDS: Escitalopram Oxalate 20 MG Tablet PO (09:54)
--- NOTE | 2024-08-31 10:19 | NURSING ---
downtime documentation 08/31/24 12am until 7am
[2024-08-31 10:35] LABS: Bedside Glucose 126 mg/dL (74-106)
[2024-08-31] MEDS: Insulin Lispro 100 UNIT/ML INSULN.PEN SC ×2 (11:59→21:48)
[2024-08-31] MEDS: Insulin Lispro 100 UNIT/ML INSULN.PEN 8 UNIT SC (12:00)
[2024-08-31 12:05] LABS: Bedside Glucose 152 mg/dL (74-106)
[2024-08-31 15:10] VITALS: BP 127/68; PULSE 94; RESP 18; TEMP 36.5; O2SAT 99
[2024-08-31 16:43] LABS: Bedside Glucose 129 mg/dL (74-106)
[2024-08-31 21:37] VITALS: BP 133/73; PULSE 84; RESP 16; TEMP 36.8; O2SAT 95
[2024-08-31] MEDS: Atorvastatin Calcium 80 MG Tablet PO (21:45)
[2024-08-31] MEDS: MELATONIN 3 MG TABLET PO (21:45)
[2024-08-31] MEDS: Insulin Glargine-YFGN 100 UNIT/ML Pen 20 UNIT SC (21:48)
[2024-08-31 23:19] LABS: Bedside Glucose 228 mg/dL (74-106)
[2024-09-01] VITALS (7 sets, daily range): BP systolic 104–193; BP diastolic 58–118; PULSE 75–97; RESP 16–20; TEMP 36.4–37.1; O2SAT 95–97; BMI 27.5
[2024-09-01] MEDS: oxyCODONE 5 MG Tablet 10 MG PO ×3 (02:41→20:37)
[2024-09-01] MEDS: Loperamide 2 MG Capsule PO ×3 (02:41→21:02)
[2024-09-01] MEDS: Haloperidol 1 MG Tablet PO ×3 (06:38→20:22)
[2024-09-01] MEDS: Gabapentin 300 MG Capsule 600 MG PO ×2 (06:39→14:52)
[2024-09-01] MEDS: Acetaminophen 500 MG Tablet 1000 MG PO ×2 (06:39→14:53)
[2024-09-01] MEDS: Enoxaparin 40 MG/0.4 ML Syringe SC (06:40)
[2024-09-01] MEDS: Menthol/Lanolin/Calamine/Znox 113 GM Tube 1 APPLIC TOPICAL ×3 (06:40→20:45)
[2024-09-01 07:28] LABS: Hematocrit 32.6 % (37-47); Hemoglobin 10.7 g/dL (12.0-15.0); Mean Corp Hgb Conc 32.8 g/dL (32-36); Mean Corpuscular Hgb 28.2 pg (27.0-32.0); Mean Corpuscular Volume 85.8 fL (81-99); Platelet Count 238 K/mm3 (150-450); RBC Distribution Width CV 14.2 % (11.6-14.6); RBC Distribution Width SD 44.1 fl (35.1-43.9); White Blood Count 6.6 K/mm3 (4.4-11.0)
[2024-09-01 07:50] LABS: Bedside Glucose 90 mg/dL (74-106)
[2024-09-01 07:52] LABS: Anion Gap 8 (5-15); BUN 21 mg/dL (4-19); BUN/Creat Ratio 27.7 RATIO (10-20); Calcium,Total 8.7 mg/dL (7.6-11.0); Carbon Dioxide 19.8 mmol/L (21.0-32.0); Chloride 110 mmol/L (98-108); Creatinine, Serum 0.77 mg/dL (0.70-1.20); EST Glomerular Filtration Rate 93 (>60); Estimated Creatinine Clearance 91.72 ml/min (50-250); Glucose 93 mg/dL (70-99); Sodium Level 138 mmol/L (133-145)
--- NOTE | 2024-09-01 08:19 | PN.HOSP_ITS ---
Reason for Visit Reason for Visit: Diagnoses Peripheral vascular disease, unspecified (08/26/24) Neuralgia and neuritis, unspecified (08/26/24) Pain in left leg (08/26/24) Subjective Subjective Patient is a 54-year-old lady who presented with intractable left lower leg pain and swelling. CT with runoff demonstrated severe disease lower extremity Dopplers were however unremarkable. MRI did show previous compression fractures. Admitted to regular nursing floor for pain management Objective Data Objective Data Vital Signs: Vital Signs Temp Pulse Resp BP Pulse Ox O2 Del Method 97.9 F 75 18 109/65 96 Room Air 09/01/24 06:36 09/01/24 06:36 09/01/24 06:36 09/01/24 06:36 09/01/24 06:36 09/01/24 06:36 Oxygen Delivery Method Room Air Weight: 79.5 kg Body Mass Index (BMI) 27.5 Intake & Output: Intake and Output for Last 24 Hours 08/30/24 08/31/24 09/01/24 23:59 23:59 23:59 Intake Total 600 / 600 Balance 600 / 600 Lab / Micro Data 09/01/24 07:22 09/01/24 07:22 Labs: Laboratory Results - last 24 hr 08/31/24 05:54: POC Glucose 126 H 08/31/24 11:47: POC Glucose 152 H 08/31/24 16:22: POC Glucose 129 H 08/31/24 21:43: POC Glucose 228 H 09/01/24 07:22: WBC 6.6, RBC 3.80 L, Hgb 10.7 L, Hct 32.6 L, MCV 85.8, MCH 28.2, MCHC 32.8, RDW Std Deviation 44.1 H, RDW Coeff of Spencer 14.2, Plt Count 238, MPV 9.0, Sodium 138, Potassium 4.0, Chloride 110 H, Carbon Dioxide 19.8 L, Anion Gap 8, BUN 21 H, Creatinine 0.77, Estim Creat Clear Calc 91.72, Est GFR (MDRD) Non- Af 93, BUN/Creatinine Ratio 27.7 H, Glucose 93, Calcium 8.7 09/01/24 07:31: POC Glucose 90 Micro: Microbiology 08/29/24 23:15 Stool Enteric Bacteriology - Final 08/29/24 23:15 Stool Clostridioides difficile (PCR) - Final Physical Exam Narrative GENERAL: cooperative HEENT: Atraumatic; normocephalic EYES; Anicteric, Normal Conjunctiva NECK; supple, normal thyroid, RESPIRATORY: Diminished to auscultation CARDIOVASCULAR: Regular S1 S2, GI: soft, normoactive bowel sounds, : No Renal angle tenderness; EXTREMITIES: No edema, no clubbing, MUSCULOSKELETAL: no muscle wasting NEURO: Awake; no lateralizing signs. SKIN: No Rash PSYCH; Flat affect Assessment & Plan Assessment/Plan (1) 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: (2) Uncontrolled diabetes mellitus: PLAN: Plan Patient is a 54-year-old lady who presented with intractable left lower leg pain and swelling. CT with runoff demonstrated severe disease lower extremity Dopplers were however unremarkable. MRI did show previous compression fractures. Admitted to regular nursing floor for pain management 1. Intractable left lower leg pain ? Thought to be secondary to radiculopathy. MRI did show previous compression fractures at L3 L5. Managed with pain medications as well as muscle relaxant 2. Physical debility ? Secondary to intractable back pain. Requested for PT OT eval and social service director to assist with discharge planning 3. Peripheral arterial disease -Previous stent about 1 year ago CTA with runoff shows severe disease. Dopplers were unremarkable. Consult placed to vascular surgery opinion was that patient pain was more related to peripheral arterial disease. Patient is on recommended medications including dual antiplatelet therapy as well as statin therapy. Plan is for patient to follow-up as outpatient 4. GERD/possible esophagitis ? Patient is on PPI plan is for patient to follow-up with GI as outpatient for EGD and colonoscopy 5. Diabetes mellitus type II -patient's oral hypoglycemics held. Placed on long acting insulin, Accu-Cheks a.c. and at bedtime and covered with sliding scale insulin. Patient hemoglobin A1c from 02/15/2024 was 9.8 6.Coronary artery disease ? Previous evaluation by cardiology on 06/02/2023. Optimization of medical therapy recommended 7. Chronic congestive heart failure with reduced ejection fraction ? Patient last echo from 05/04/2023 demonstrated EF of 15% with severe segmental systolic dysfunction. Patient is on recommended medications including aspirin beta-blockers. Repeated 2D echo. Patient will need to follow-up with cardiology for continuous care 8. Chronic hypotension ? Patient is on midodrine 9. Dyslipidemia ?Patient is on statin therapy, continued at home dose 10. Tobacco dependence ? Counseled on cessation, offered nicotine patch for tobacco cravings 11. DVT prophylaxis enoxaparin 40 daily Time spent in the patient's overall evaluation,decision-making process, review of diagnostic data, adjustment of management, discussion with other providers, nursing nursing and ancillary staff involved in patient's care documentation, 38 minutes Charges/Coding Visit Charges Inpatient E&M: 80765 Subs Hosp L2
--- NOTE | 2024-09-01 08:47 | CASEMGMT ---
Social Work SW sent updates via [employer] to [facility], precert is still pending. KIKE will continue to follow. MARTIN Marc
[2024-09-01] MEDS: Escitalopram Oxalate 20 MG Tablet PO (09:08)
[2024-09-01] MEDS: Midodrine HCl 5 MG Tablet PO ×3 (09:08→17:37)
[2024-09-01] MEDS: Pantoprazole Sodium 40 MG Tablet PO (09:09)
[2024-09-01] MEDS: Aspirin 81 MG TAB.CHEW PO (09:09)
[2024-09-01] MEDS: Carvedilol 3.125 MG TABLET PO ×2 (09:09→21:02)
[2024-09-01] MEDS: Furosemide 20 MG Tablet PO (09:10)
[2024-09-01] MEDS: Clopidogrel Bisulfate 75 MG Tablet PO (09:10)
--- NOTE | 2024-09-01 09:16 | ECHOCS_ITS ---
Reason For Study Reason For Study: CHF Procedure This was a 2D Doppler, Color Flow transthoracic echocardiogram. The study was technically difficult. Exam performed portable in patient room. Left Ventricle Normal LV size. The left ventricular ejection fraction is 30 %. There are regional wall motion abnormalities as specified. Septal Fowler : Akinetic. Mid-anteroseptal : Akinetic. Infero-Basal: Akinetic. Inferior Fowler : Akinetic. Anterior Fowler : Akinetic. Anterio-Basal: Normal. Lateral-Basal: Normal. Posterior-Basal: Normal. Right Ventricle Normal RV size. Normal systolic function. Atria Normal left atrium. Normal right atrium. Mitral Valve Normal mitral valve. Tricuspid Valve Normal tricuspid valve. Aortic Valve Trisinus/trileaflet aortic valve. Great Vessels Normal aortic root. Pericardium/Pleural No pericardial effusion. Medication 22 gauge I.V. with prn adaptor inserted into left arm. Diluted definity 4ml given slow IV push to enhance endocardial definition. MMode/2D Measurements & Calculations LVIDd: 5.4 cm IVSd: 1.1 cm Ao root diam: 3.0 cm LVIDs: 3.8 cm LVPWd: 1.1 cm RVDd: 3.3 cm FS: 29.2 % LAV(MOD-bp): 38.0 ml LVAd ap4: 38.5 cm2 SV(MOD-sp4): 72.2 ml LAV(MOD-bp) Indexed: 19.9 ml/m2 LVLd ap4: 8.7 cm SI(MOD-sp4): 37.8 ml/m2 LAV(MOD-sp2): 38.3 ml EDV(MOD-sp4): 138.5 ml LAV(MOD-sp4): 37.8 ml EDV(sp4-el): 144.2 ml LVAs ap4: 24.7 cm2 LVLs ap4: 7.6 cm ESV(MOD-sp4): 66.3 ml ESV(sp4-el): 68.5 ml EF(MOD-sp4): 52.2 % EF(sp4-el): 52.5 % SV(sp4-el): 75.7 ml LA A4 area: 14.9 cm2 LA dimension(2D): 3.7 cm RA A4 area: 12.8 cm2 TAPSE: 2.0 cm Time Measurements MV dec time: 0.17 sec Doppler Measurements & Calculations MV E max kristian: 93.4 cm/sec Lat Peak E' Kristian: 7.3 cm/sec Med Peak E' Kristian: 7.3 cm/sec MV A max kristian: 87.2 cm/sec E/E' lat: 12.9 E/E' med: 12.9 MV E/A: 1.1 Ao V2 max: 142.8 cm/sec LV V1 max: 105.1 cm/sec PA V2 max: 93.1 cm/sec Ao max P.2 mmHg LV V1 max P.4 mmHg ECHO/Echo Complete W/ Contrast Interpretation Summary The left ventricular ejection fraction is 30 %. Normal LV size. There are regional wall motion abnormalities as specified. Compared to previous study, the left ventricular systolic function has improved .. Contrast injection was performed. Ordering Physician: Morro Aaron Referring Physician: MARGIE MCKEON Performed By: Adela Pimentel RDCS
[2024-09-01 11:57] LABS: Bedside Glucose 139 mg/dL (74-106)
[2024-09-01] MEDS: Insulin Lispro 100 UNIT/ML INSULN.PEN 8 UNIT SC (12:09)
[2024-09-01 15:04] LABS: Bedside Glucose 73 mg/dL (74-106)
--- NOTE | 2024-09-01 15:18 | CASEMGMT ---
Addendum entered by Dolly Claros 09/01/24 15:41: Social Work SW did recieve the fax from [facility] outlining pt's denial and with the physician number to call for a peer to peer: [phone]. SW passed the information on to the physician. MARTIN Marc Original Note: Social Work Insurance denied SNF, as per [facility]. They are to fax over appeal information. SW spoke w/pt, she still does not feel she can manage at home, feels she still needs to go somewhere for rehab, asked about trying a different facility. SW educated pt that it does not matter the facility, pt was denied by insurance for the SNF level of care. Pt states her leg is still giving out on her, and she is afraid she will not make it to the bathroom in time as she now is having bowel issues. SW reached out to the physician, he is willing to do a peer to peer, pt would like physician to try. KIKE has sent a message to [employer] via [employer] to attain the peer to peer information, and is now trying to call as nobody is responding to KIKE. This is KIKE's second time calling [facility] and being put on hold for an extended amount of time. KIKE will continue to try to reach [employer] via phone and [employer] for the peer to peer information. MARTIN Marc
[2024-09-01 15:35] LABS: Bedside Glucose 80 mg/dL (74-106)
--- NOTE | 2024-09-01 15:58 | CASEMGMT ---
Social Work SW did receive the fax, however the number on the fax is incorrect. SW called [facility], the correct number to call to set up peer to peer is [phone]. SW coordinated w/physician and let message as this line requests, with the times to call the physician tomorrow with 11am, 12pm or 1pm being the times he is available. As per the phone line, they do not pickle solution maker messages after 3:30pm. SW attempted to update pt, but she is sleeping. SW will continue to follow. MARTIN Marc
[2024-09-01 17:13] LABS: Bedside Glucose 142 mg/dL (74-106)
[2024-09-01 17:13] LABS: Bedside Glucose 58 mg/dL (74-106)
[2024-09-01] MEDS: proMETHazine 25 MG Tablet PO (20:23)
[2024-09-01] MEDS: 0.9% Saline Lock 10 ML Syringe IV (20:36)
[2024-09-01] MEDS: Insulin Lispro 100 UNIT/ML INSULN.PEN SC (20:45)
[2024-09-01] MEDS: Insulin Glargine-YFGN 100 UNIT/ML Pen 20 UNIT SC (20:46)
[2024-09-01 22:08] LABS: Bedside Glucose 162 mg/dL (74-106)
[2024-09-02 06:00] VITALS: BMI 27.7
[2024-09-02 06:41] VITALS: BP 153/101; PULSE 105; RESP 20; TEMP 36.5; O2SAT 99
[2024-09-02 06:45] LABS: Absolute Lymphocyte Count 1.33 X10^3/uL (0.83-4.51); Absolute Neutrophil Count 7.4 X10^3/uL (2.0-7.7); Basophil# 0.03 X10^3/uL; Basophil% 0.3 % (0-1); Eosinophil# 0.02 X10^3/uL; Eosinophils% 0.2 % (0-5); Hematocrit 42.7 % (37-47); Lymphocyte # 1.33 X10^3/ul (0.83-4.51); Lymphocyte % 14.4 % (19-41); Mean Corp Hgb Conc 32.8 g/dL (32-36); Mean Corpuscular Hgb 27.5 pg (27.0-32.0); Mean Corpuscular Volume 83.7 fL (81-99); Mean Platelet Vol. 8.8 fl (6.2-12.0); Monocyte# 0.37 X10^3/uL; NRBC Flagged by Analyzer 0 % (0-5); Neutrophil # 7.44 X10^3/uL (2.7-7.7); Neutrophil % 80.7 % (47-70); Platelet Count 269 K/mm3 (150-450); RBC Distribution Width CV 13.8 % (11.6-14.6); RBC Distribution Width SD 42.4 fl (35.1-43.9); White Blood Count 9.2 K/mm3 (4.4-11.0)
[2024-09-02] MEDS: oxyCODONE 5 MG Tablet 10 MG PO ×3 (06:47→15:18)
[2024-09-02] MEDS: proMETHazine 25 MG Tablet PO ×2 (06:47→15:18)
[2024-09-02] MEDS: Haloperidol 1 MG Tablet PO ×2 (06:47→15:15)
[2024-09-02] MEDS: Menthol/Lanolin/Calamine/Znox 113 GM Tube 1 APPLIC TOPICAL (06:49)
[2024-09-02] MEDS: Enoxaparin 40 MG/0.4 ML Syringe SC (06:50)
[2024-09-02] MEDS: Insulin Lispro 100 UNIT/ML INSULN.PEN SC ×3 (06:56→16:46)
[2024-09-02 07:00] LABS: Anion Gap 14 (5-15); BUN 15 mg/dL (4-19); BUN/Creat Ratio 22.6 RATIO (10-20); Calcium,Total 9.4 mg/dL (7.6-11.0); Chloride 101 mmol/L (98-108); Creatinine, Serum 0.67 mg/dL (0.70-1.20); EST Glomerular Filtration Rate 104 (>60); Estimated Creatinine Clearance 105.77 ml/min (50-250); Glucose 242 mg/dL (70-99); Phosphorus 2.1 mg/dL (2.7-4.5); Potassium 3.9 mmol/L (3.3-5.1); Sodium Level 136 mmol/L (133-145)
--- NOTE | 2024-09-02 07:51 | PCM.PN.HOSP ---
Reason for Visit Reason for Visit: Diagnoses Peripheral vascular disease, unspecified (08/26/24) Neuralgia and neuritis, unspecified (08/26/24) Pain in left leg (08/26/24) Subjective Subjective Patient seen diagnostic data this a.m. is significant for low phosphorus level additional replacement. Patient seen this morning complaining of nausea and pain and is therefore refusing a.m. medication and order was given for patient to receive additional Phenergan 25 mg intramuscular Objective Data Objective Data Vital Signs: Vital Signs Temp Pulse Resp BP Pulse Ox O2 Del Method 97.7 F L 105 H 20 H 153/101 H 99 Room Air 09/02/24 06:41 09/02/24 06:41 09/02/24 06:41 09/02/24 06:41 09/02/24 06:41 09/02/24 06:41 Oxygen Delivery Method Room Air Weight: 80.1 kg Body Mass Index (BMI) 27.7 Intake & Output: Intake and Output for Last 24 Hours 08/31/24 09/01/24 09/02/24 23:59 23:59 23:59 Intake Total 1550 / 1550 Balance 1550 / 1550 Lab / Micro Data 09/02/24 06:20 09/02/24 06:20 Labs: Laboratory Results - last 24 hr 09/01/24 07:22: Sodium 138, Potassium 4.0, Chloride 110 H, Carbon Dioxide 19.8 L, Anion Gap 8, BUN 21 H, Creatinine 0.77, Estim Creat Clear Calc 91.72, Est GFR (MDRD) Non-Af 93, BUN/Creatinine Ratio 27.7 H, Glucose 93, Calcium 8.7 09/01/24 11:38: POC Glucose 139 H 09/01/24 14:23: POC Glucose 58 L 09/01/24 14:45: POC Glucose 73 L 09/01/24 15:17: POC Glucose 80 09/01/24 16:55: POC Glucose 142 H 09/01/24 20:16: POC Glucose 162 H 09/02/24 06:20: WBC 9.2, RBC 5.10, Hgb 14.0, Hct 42.7, MCV 83.7, MCH 27.5, MCHC 32.8, RDW Std Deviation 42.4, RDW Coeff of Spencer 13.8, Plt Count 269, MPV 8.8, Immature Gran % (Auto) 0.400, Neut % (Auto) 80.7 H, Lymph % (Auto) 14.4 L, [place] % (Auto) 4.0, Eos % (Auto) 0.2, Baso % (Auto) 0.3, Absolute Neuts (auto) 7.4, Absolute Lymphs (auto) 1.33, Nucleated RBC % 0, Sodium 136, Potassium 3.9, Chloride 101, Carbon Dioxide 20.0 L, Anion Gap 14, BUN 15, Creatinine 0.67 L, Estim Creat Clear Calc 105.77, Est GFR (MDRD) Non-Af 104, BUN/Creatinine Ratio 22.6 H, Glucose 242 H, Calcium 9.4, Phosphorus 2.1 L, Magnesium 2.0 Micro: Microbiology 08/29/24 23:15 Stool Enteric Bacteriology - Final 08/29/24 23:15 Stool Clostridioides difficile (PCR) - Final Radiography Diagnostic Testing: Radiology Impression Echocardiogram 09/01/24 09:16 Interpretation Summary The left ventricular ejection fraction is 30 %. Normal LV size. There are regional wall motion abnormalities as specified. Compared to previous study, the left ventricular systolic function has improved.. Contrast injection was performed. Ordering Physician: Morro Aaron Referring Physician: MARGIE MCKEON Performed By: Adela Pimentel RDCS Physical Exam Narrative GENERAL: cooperative HEENT: Atraumatic; normocephalic EYES; Anicteric, Normal Conjunctiva NECK; supple, normal thyroid, RESPIRATORY: Diminished to auscultation CARDIOVASCULAR: Regular S1 S2, GI: soft, normoactive bowel sounds, : No Renal angle tenderness; EXTREMITIES: No edema, no clubbing, MUSCULOSKELETAL: no muscle wasting NEURO: Awake; no lateralizing signs. SKIN: No Rash PSYCH; Flat affect Assessment & Plan Assessment/Plan (1) 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: (2) Uncontrolled diabetes mellitus: PLAN: Plan Patient is a 54-year-old lady who presented with intractable left lower leg pain and swelling. CT with runoff demonstrated severe disease lower extremity Dopplers were however unremarkable. MRI did show previous compression fractures. Admitted to regular nursing floor for pain management 1. Intractable left lower leg pain ? Thought to be secondary to radiculopathy. MRI did show previous compression fractures at L3 L5. Managed with pain medications as well as muscle relaxant 2. Physical debility ? Secondary to intractable back pain. Requested for PT OT eval and web content & social media manager to assist with discharge planning 3. Peripheral arterial disease -Previous stent about 1 year ago CTA with runoff shows severe disease. Dopplers were unremarkable. Consult placed to vascular surgery opinion was that patient pain was more related to peripheral arterial disease. Patient is on recommended medications including dual antiplatelet therapy as well as statin therapy. Plan is for patient to follow-up as outpatient 4. GERD/possible esophagitis ? Patient is on PPI plan is for patient to follow-up with GI as outpatient for EGD and colonoscopy 5. Diabetes mellitus type II -patient's oral hypoglycemics held. Placed on long acting insulin, Accu-Cheks a.c. and at bedtime and covered with sliding scale insulin. Patient hemoglobin A1c from 02/15/2024 was 9.8 6.Coronary artery disease ? Previous evaluation by cardiology on 06/02/2023. Optimization of medical therapy recommended 7. Chronic congestive heart failure with reduced ejection fraction ? Patient last echo from 05/04/2023 demonstrated EF of 15% with severe segmental systolic dysfunction. Patient is on recommended medications including aspirin beta-blockers. Repeated 2D echo. Patient will need to follow-up with cardiology for continuous care 8. Chronic hypotension ? Patient is on midodrine 9. Dyslipidemia ?Patient is on statin therapy, continued at home dose 10. Tobacco dependence ? Counseled on cessation, offered nicotine patch for tobacco cravings 11. DVT prophylaxis enoxaparin 40 daily 12. Hypophosphatemia ? Corrected per protocol Time spent in the patient's overall evaluation,decision-making process, review of diagnostic data, adjustment of management, discussion with other providers, nursing nursing and ancillary staff involved in patient's care documentation, 36 minutes Charges/Coding Visit Charges Inpatient E&M: 06474 Subs Hosp L2
[2024-09-02] MEDS: proMETHazine 25 MG/ML Syringe IM (10:17)
[2024-09-02] MEDS: Clopidogrel Bisulfate 75 MG Tablet PO (10:18)
[2024-09-02] MEDS: Midodrine HCl 5 MG Tablet PO ×3 (10:18→16:46)
[2024-09-02] MEDS: Carvedilol 3.125 MG TABLET PO (10:18)
[2024-09-02] MEDS: Escitalopram Oxalate 20 MG Tablet PO (10:18)
[2024-09-02] MEDS: Furosemide 20 MG Tablet PO (10:18)
[2024-09-02] MEDS: Pantoprazole Sodium 40 MG Tablet PO (10:18)
[2024-09-02 11:39] LABS: Bedside Glucose 248 mg/dL (74-106)
[2024-09-02 12:00] VITALS: BP 144/78; PULSE 96; RESP 17; TEMP 36.6; O2SAT 97
[2024-09-02 12:26] LABS: Bedside Glucose 228 mg/dL (74-106)
--- NOTE | 2024-09-02 12:32 | PCM.DC.SUM ---
Providers Date of Admission: 08/26/24 Date of Discharge: 09/02/24 Primary Care Physician: Margie Mckeon, [facility], [employer] Consultations 08/26/24 20:30 Consult: Vascular Surgery Routine Consulting Provider: Riccardo Ng Reason for Consult: Left lower extremity pain with concerns for ischemia EMERGENT Consult: No MD Notified: Yes Date Notified: 08/26/24 Time Notified: 20:10 Method of Notification: Verbal Reason For Visit: PERIPHERAL ARTERIAL CRITICAL STENOSIS WITH EXTREME Diagnosis Discharge Diagnosis (1) 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: Status: Acute Code(s): M79.2 - Neuralgia and neuritis, unspecified (2) Uncontrolled diabetes mellitus: Status: Acute Plan Patient is a 54-year-old lady who presented with intractable left lower leg pain and swelling. CT with runoff demonstrated severe disease lower extremity Dopplers were however unremarkable. MRI did show previous compression fractures. Admitted to regular nursing floor for pain management 1. Intractable left lower leg pain ? Thought to be secondary to radiculopathy. MRI did show previous compression fractures at L3 L5. Managed with pain medications as well as muscle relaxant 2. Physical debility ? Secondary to intractable back pain. Requested for PT OT eval and geriatric social work professor to assist with discharge planning ? 09/02/2024 patient was denied transfer to intermediate facility by her insurance company since she had refused to participate in physical therapy she was discharged home with home health 3. Peripheral arterial disease -Previous stent about 1 year ago CTA with runoff shows severe disease. Dopplers were unremarkable. Consult placed to vascular surgery opinion was that patient pain was more related to peripheral arterial disease. Patient is on recommended medications including dual antiplatelet therapy as well as statin therapy. Plan is for patient to follow-up as outpatient 4. GERD/possible esophagitis ? Patient is on PPI plan is for patient to follow-up with GI as outpatient for EGD and colonoscopy 5. Diabetes mellitus type II -patient's oral hypoglycemics held. Placed on long acting insulin, Accu-Cheks a.c. and at bedtime and covered with sliding scale insulin. Patient hemoglobin A1c from 02/15/2024 was 9.8 6.Coronary artery disease ? Previous evaluation by cardiology on 06/02/2023. Optimization of medical therapy recommended 7. Chronic congestive heart failure with reduced ejection fraction ? Patient last echo from 05/04/2023 demonstrated EF of 15% with severe segmental systolic dysfunction. Patient is on recommended medications including aspirin beta-blockers. Repeated 2D echo. Patient will need to follow-up with cardiology for continuous care 09/02/2024; repeat echo demonstrated The left ventricular ejection fraction is 30 %. Normal LV size. There are regional wall motion abnormalities as specified. Compared to previous study, the left ventricular systolic function has improved.. 8. Chronic hypotension ? Patient is on midodrine 9. Dyslipidemia ?Patient is on statin therapy, continued at home dose 10. Tobacco dependence ? Counseled on cessation, offered nicotine patch for tobacco cravings 11. DVT prophylaxis enoxaparin 40 daily 12. Hypophosphatemia ? Corrected per protocol Time spent in the patient's overall evaluation,decision-making process, review of diagnostic data, adjustment of management, discussion with other providers, nursing nursing and ancillary staff involved in patient's care documentation, 36 minutes Medications at Discharge Home Medications aspirin 81 mg capsule 81 mg PO DAILY heart health 08/10/22 clopidogrel 75 mg tablet 75 mg PO DAILY anti platelet #30 tabs 02/03/23 pantoprazole 40 mg tablet,delayed release 40 mg PO DAILY reflux 04/18/23 sacubitril 24 mg-valsartan 26 mg tablet (Entresto) 1 tab PO BID . 30 days #60 tabs 05/07/23 atorvastatin 80 mg tablet 80 mg PO QHS cholesterol 12/29/23 gabapentin 300 mg capsule 300 mg PO TID nerve pain 12/29/23 insulin glargine 100 unit/mL (3 mL) subcutaneous pen (Lantus Solostar U-100 Insulin) 25 unit subcut DAILY dm 12/29/23 insulin lispro 100 unit/mL subcutaneous half-unit pen 1 sliding scale dose subcut TIDCM glucose 12/29/23 DIC 2%/RINKU 6%/LIDOC 2% IN saltsable 1 - 2 pump subdermal Q6H PRN FOR FEET 02/14/24 cholecalciferol (vitamin D3) 1,250 mcg (50,000 unit) tablet 1,250 mcg PO WE supplement 02/14/24 spironolactone 25 mg tablet 25 mg PO DAILY water pill 30 days #0 tabs 02/17/24 carvedilol 3.125 mg tablet 6.25 mg (2 x 3.125 mg) PO BID blood pressure 30 days #0 tabs 02/19/24 ergocalciferol (vitamin D2) 1,250 mcg (50,000 unit) capsule (Vitamin D2) 1,250 mcg PO We@1000 #0 caps 02/19/24 insulin glargine 100 unit/mL (3 mL) subcutaneous pen (Lantus Solostar U-100 Insulin) 20 unit (0.2 mL) subcut QPM 30 days #0 mL 02/19/24 escitalopram oxalate 20 mg tablet 20 mg PO DAILY depression 06/29/24 furosemide 20 mg tablet 20 mg PO DAILY water pill 06/29/24 midodrine 2.5 mg tablet mg PO PRN blood pressure 06/29/24 polyethylene glycol 3350 17 gram/dose oral powder (Miralax) 17 g PO BID PRN constipation 06/29/24 sennosides 8.6 mg-docusate sodium 50 mg tablet (Stimulant Laxative Plus) 2 tab PO BID PRN constipation 06/29/24 tizanidine 4 mg tablet 4 mg PO 3XD spasm 06/29/24 haloperidol 1 mg tablet 1 mg PO TID #21 tabs 07/03/24 ondansetron HCl 4 mg tablet 4 mg PO Q8H nausea #10 tabs 08/01/24 hydrocodone-acetaminophen 5-325mg 5mg-325mg 1 tab PO Q6H PRN Pain 08/26/24 acetaminophen 500 mg tablet 1,000 mg (2 x 500 mg) PO Q8 #0 tabs 09/02/24 oxycodone 5 mg tablet 5 mg PO Q4H PRN PRN Pain Score 4-10 5 days #20 tabs 09/02/24 Physical Exam Narrative GENERAL: cooperative HEENT: Atraumatic; normocephalic EYES; Anicteric, Normal Conjunctiva NECK; supple, normal thyroid, RESPIRATORY: Diminished to auscultation CARDIOVASCULAR: Regular S1 S2, GI: soft, normoactive bowel sounds, : No Renal angle tenderness; EXTREMITIES: No edema, no clubbing, MUSCULOSKELETAL: no muscle wasting NEURO: Awake; no lateralizing signs. SKIN: No Rash PSYCH; Flat affect Weight / BMI Weight Weight: 80.1 kg Body Mass Index (BMI) 27.7 ABG / Lab / Microbiology Data 09/02/24 06:20 09/02/24 06:20 Laboratory: Laboratory Results - last 24 hr 09/01/24 14:23: POC Glucose 58 L 09/01/24 14:45: POC Glucose 73 L 09/01/24 15:17: POC Glucose 80 09/01/24 16:55: POC Glucose 142 H 09/01/24 20:16: POC Glucose 162 H 09/02/24 06:20: WBC 9.2, RBC 5.10, Hgb 14.0, Hct 42.7, MCV 83.7, MCH 27.5, MCHC 32.8, RDW Std Deviation 42.4, RDW Coeff of Spencer 13.8, Plt Count 269, MPV 8.8, Immature Gran % (Auto) 0.400, Neut % (Auto) 80.7 H, Lymph % (Auto) 14.4 L, Cobb % (Auto) 4.0, Eos % (Auto) 0.2, Baso % (Auto) 0.3, Absolute Neuts (auto) 7.4, Absolute Lymphs (auto) 1.33, Nucleated RBC % 0, Sodium 136, Potassium 3.9, Chloride 101, Carbon Dioxide 20.0 L, Anion Gap 14, BUN 15, Creatinine 0.67 L, Estim Creat Clear Calc 105.77, Est GFR (MDRD) Non-Af 104, BUN/Creatinine Ratio 22.6 H, Glucose 242 H, Calcium 9.4, Phosphorus 2.1 L, Magnesium 2.0 09/02/24 06:55: POC Glucose 248 H 09/02/24 11:30: POC Glucose 228 H Microbiology: Microbiology 08/29/24 23:15 Stool Enteric Bacteriology - Final 08/29/24 23:15 Stool Clostridioides difficile (PCR) - Final Radiography Diagnostic Testing: Radiology Impression Echocardiogram 09/01/24 09:16 Interpretation Summary The left ventricular ejection fraction is 30 %. Normal LV size. There are regional wall motion abnormalities as specified. Compared to previous study, the left ventricular systolic function has improved.. Contrast injection was performed. Ordering Physician: Morro Aaron Referring Physician: MARGIE MCKEON Performed By: Adela Pimentel RDCS D/C Instructions Discharge Diet: 1800 Calorie Control Diet Discharge Activity: Return to Normal Activity Call your doctor if you observe: Fever of 101 or Higher, Shortness of breath, Fainting spells and Chest pain DC O2, CPAP, BIPAP Needs Home O2 Discharge instructions: No Please Follow Up With: Belén Lugo MD Meaningful Use Info Meaningful Use Meaningful Use Diagnoses (Choose all that apply): None applicable Ischemic Stroke Statin Dosing Therapy Reference: STATIN DOSE THERAPY REFERENCE: * Patients > 75 years receive moderate or high dose statin therapy. * Patients 75 years or YOUNGER should receive HIGH intensity statin dose unless contraindicated. You will be required to document reason for non-treatment if statin daily dose does not meet guidelines. HIGH DOSE STATIN THERAPY DAILY Atorvastatin > than or = to 40 mg Rosuvastatin > than or = to 20 mg Amlodipine + Atorvastatin > than or = to 2.5/40 mg Ezetimibe + Simvastatin 10/80 mg Simvastatin 80mg Discharge Plan Admission Admit Date/Time: 08/26/24 20:03 Attending Provider: Morro Aaron Primary Care Provider: Margie Mckeon [facility] Consulting Providers: Brenda Posadas; Riccardo Ng; Nicole Trujillo Discharge Orders/Prescriptions Prescriptions: New acetaminophen 500 mg Tablet 1,000 mg PO Q8 Qty: 0 0RF oxycodone 5 mg Tablet 5 mg PO Q4H PRN PRN (Reason: Pain Score 4-10) 5 Days Qty: 20 0RF Continued pantoprazole 40 mg tablet,delayed release (DR/EC) 40 mg PO DAILY aspirin 81 mg Capsule 81 mg PO DAILY clopidogrel 75 mg Tablet 75 mg PO DAILY Qty: 30 0RF Patient Comments: patient stated pretty sure I still take that sacubitril-valsartan [Entresto] 24-26 mg Tablet 1 tab PO BID 30 Days Qty: 60 0RF insulin glargine [Lantus Solostar U-100 Insulin] 100 unit/mL (3 mL) insulin pen 25 unit subcut DAILY insulin lispro 100 unit/mL insulin pen, half-unit 1 sliding scale dose subcut TIDCM Patient Comments: patient does not know sliding scale atorvastatin 80 mg tablet 80 mg PO QHS gabapentin 300 mg Capsule 300 mg PO TID tizanidine 4 mg tablet 4 mg PO 3XD midodrine 2.5 mg tablet PO PRN furosemide 20 mg tablet 20 mg PO DAILY escitalopram oxalate 20 mg tablet 20 mg PO DAILY sennosides-docusate sodium [Stimulant Laxative Plus] 8.6-50 mg Tablet 2 tab PO BID PRN (Reason: constipation) polyethylene glycol 3350 [Miralax] 17 gram/dose powder 17 g PO BID PRN (Reason: constipation) haloperidol 1 mg tablet 1 mg PO TID Qty: 21 0RF Rx Instructions: for nausea hydrocodone-acetaminophen 5-325 mg tablet 1 tab PO Q6H PRN (Reason: Pain) cholecalciferol (vitamin D3) 1,250 mcg (50,000 unit) tablet 1,250 mcg PO WE DIC 2%/RINKU 6%/LIDOC 2% IN saltsable cream 1 - 2 pump subdermal Q6H PRN (Reason: FOR FEET) spironolactone 25 mg tablet 25 mg PO DAILY 30 Days Qty: 0 0RF ergocalciferol (vitamin D2) [Vitamin D2] 1,250 mcg (50,000 unit) Capsule 1,250 mcg PO We@1000 Qty: 0 0RF carvedilol 3.125 mg tablet 6.25 mg PO BID 30 Days Qty: 0 0RF Rx Instructions: Hold for heart less than 50 or systolic blood pressure less than 100 mmHg. insulin glargine [Lantus Solostar U-100 Insulin] 100 unit/mL (3 mL) insulin pen 20 unit subcut QPM 30 Days Qty: 0 0RF Rx Instructions: Hold if glucose less than 130 mg/dl ondansetron HCl 4 mg tablet 4 mg PO Q8H Qty: 10 0RF Discontinued gabapentin 400 mg capsule 400 mg 3XD Referrals / Follow Up: Margie Mckeon, [employer] [Primary Care Provider] - Within 1 Week Disposition Disposition (needs filled in before D/C Order can be placed): Home Health Service Charges/Coding Visit Charges Inpatient E&M: 36262 Disch Hosp >30min
[2024-09-02 12:46] VITALS: BP 112/78; PULSE 60; RESP 13; TEMP 36.6; O2SAT 95
--- NOTE | 2024-09-02 12:58 | CASEMGMT ---
Social Work As per physician, pt's denial for SNF was upheld. SW let pt know, pt is disappointed. Pt would like home health care if possible, though is aware that with her insurance, it has been difficult in the past to get home health. Pt open to any home health agency that takes her insurance, so HHC list not needed at this time. SW updated CM, who will follow up w/HHC referrals. MARTIN Marc
--- NOTE | 2024-09-02 13:33 | CASEMGMT ---
Addendum entered by Naveen Gaming 09/05/24 14:47: CHAYITO BARKLEY was notified that the pt is currently in the ED. [facility] to this date still has not returned this RN CM TC x2, or returned a response in [facility] regarding the HH referral. Addendum entered by Naveen Gaming 09/02/24 15:04: CHAYITO BARKLEY to pt room at this time. Pt resting in bed and is A&Ox4. This RN CM educated the pt that we have not been able to get HHC established. Pt educated that the referral to [facility] is still pending. At this time, the pt states that she is OK and feels safe with discharging home with her family without HHC. This RN CM discussed OP Tx with the pt and the pt declines. This RN CM told the pt that this RN CM will notify the pt if [facility] is able to accept. Pt states understanding and denies further needs at this time. Addendum entered by Naveen Gaming 09/02/24 14:55: Another TC to [facility]. No answer, left. Addendum entered by Naveen Gaming 09/02/24 14:52: [facility] HH states that they cannot accept. [facility] states that they have had the pt in the past and are not willing to accept her again due to non-compliance and other issues. CM to follow. Addendum entered by Naveen Gaming 09/02/24 14:24: Referrals were sent to [facility], [facility], [facility], [facility], and [facility]. At this time, all HH agencies have declined e/f [facility] ad [facility]. TC to [facility], no answer. TC to [facility] who states that they cannot accept due to pts insurance. TC to [facility]. [facility] reports that the pt insurance might be in-network. Referral made for SN, PT, and OT. Awaiting return response. Original Note: VIVIEN Infante transportation planning engineer, sent referrals to all local in-network HHC agencies. CM to follow.
--- NOTE | 2024-09-02 14:32 | PHA.DC.MC.R ---
Pharmacy [facility] has performed discharge medication reconciliation and counseling for this patient. 1. ACETAMINOPHEN 1000MG PO Q8 2. OXYCODONE 5MG Q4H PRN PAIN - Do not take with [place] 3. STOP GABAPENTIN The patient's discharge medication list was reviewed for discrepancies and discrepancies were resolved. The patient was counseled on the following discharge medications and changes in medications for homegoing were reviewed. The Reason for Use, instructions for use, and potential side effects were reviewed for all new medications. The patient's questions regarding all of their medications were answered. The patient was able to verbally demonstrate an understanding of their discharge medications. Medications at Discharge Home Medications aspirin 81 mg capsule 81 mg PO DAILY heart health 08/10/22 clopidogrel 75 mg tablet 75 mg PO DAILY anti platelet #30 tabs 02/03/23 pantoprazole 40 mg tablet,delayed release 40 mg PO DAILY reflux 04/18/23 sacubitril 24 mg-valsartan 26 mg tablet (Entresto) 1 tab PO BID . 30 days #60 tabs 05/07/23 atorvastatin 80 mg tablet 80 mg PO QHS cholesterol 12/29/23 gabapentin 300 mg capsule 300 mg PO TID nerve pain 12/29/23 insulin glargine 100 unit/mL (3 mL) subcutaneous pen (Lantus Solostar U-100 Insulin) 25 unit subcut DAILY dm 12/29/23 insulin lispro 100 unit/mL subcutaneous half-unit pen 1 sliding scale dose subcut TIDCM glucose 12/29/23 DIC 2%/RINKU 6%/LIDOC 2% IN saltsable 1 - 2 pump subdermal Q6H PRN FOR FEET 02/14/24 cholecalciferol (vitamin D3) 1,250 mcg (50,000 unit) tablet 1,250 mcg PO WE supplement 02/14/24 spironolactone 25 mg tablet 25 mg PO DAILY water pill 30 days #0 tabs 02/17/24 carvedilol 3.125 mg tablet 6.25 mg (2 x 3.125 mg) PO BID blood pressure 30 days #0 tabs 02/19/24 ergocalciferol (vitamin D2) 1,250 mcg (50,000 unit) capsule (Vitamin D2) 1,250 mcg PO We@1000 #0 caps 02/19/24 insulin glargine 100 unit/mL (3 mL) subcutaneous pen (Lantus Solostar U-100 Insulin) 20 unit (0.2 mL) subcut QPM 30 days #0 mL 02/19/24 escitalopram oxalate 20 mg tablet 20 mg PO DAILY depression 06/29/24 furosemide 20 mg tablet 20 mg PO DAILY water pill 06/29/24 midodrine 2.5 mg tablet mg PO PRN blood pressure 06/29/24 polyethylene glycol 3350 17 gram/dose oral powder (Miralax) 17 g PO BID PRN constipation 06/29/24 sennosides 8.6 mg-docusate sodium 50 mg tablet (Stimulant Laxative Plus) 2 tab PO BID PRN constipation 06/29/24 tizanidine 4 mg tablet 4 mg PO 3XD spasm 06/29/24 haloperidol 1 mg tablet 1 mg PO TID #21 tabs 07/03/24 ondansetron HCl 4 mg tablet 4 mg PO Q8H nausea #10 tabs 08/01/24 hydrocodone-acetaminophen 5-325mg 5mg-325mg 1 tab PO Q6H PRN Pain 08/26/24 acetaminophen 500 mg tablet 1,000 mg (2 x 500 mg) PO Q8 #0 tabs 09/02/24 oxycodone 5 mg tablet 5 mg PO Q4H PRN PRN Pain Score 4-10 5 days #20 tabs 09/02/24
[2024-09-02] MEDS: Gabapentin 300 MG Capsule 600 MG PO (15:15)
[2024-09-02] MEDS: Acetaminophen 500 MG Tablet 1000 MG PO (15:16)
--- NOTE | 2024-09-02 16:36 | NURSING ---
spoke with pt daughter Ashlee and informed of discharge- Ashlee states she will be here in about 1 hour to pick pt up
[2024-09-02 17:07] LABS: Bedside Glucose 229 mg/dL (74-106)
== END 2024-09-02 18:35 | disposition home health service (06) | DRG 48 ==
LOC: ED 17:31 → ICU 22:22 → MS3 09-01 07:17 → ICU 09-01 07:21
PROVIDERS: Emergency Medicine; Internal Medicine; Admitting Provider Internal Medicine; Emergency Provider Surgery; PCP Nurse Practitioner Family; Visit Provider Internal Medicine
DX: E11.40 Type 2 diabetes mellitus with diabetic neuropathy, unspecified (principal); E83.39 Other disorders of phosphorus metabolism; E11.51 Type 2 diabetes mellitus with diabetic peripheral angiopathy without gangrene; E11.65 Type 2 diabetes mellitus with hyperglycemia; E78.5 Hyperlipidemia, unspecified; B96.20 Unspecified Escherichia coli [E. coli] as the cause of diseases classified elsewhere; I11.0 Hypertensive heart disease with heart failure; I50.42 Chronic combined systolic (congestive) and diastolic (congestive) heart failure; F32.A Depression, unspecified; I34.0 Nonrheumatic mitral (valve) insufficiency; M79.2 Neuralgia and neuritis, unspecified; M51.16 Intervertebral disc disorders with radiculopathy, lumbar region; F17.200 Nicotine dependence, unspecified, uncomplicated; I25.10 Atherosclerotic heart disease of native coronary artery without angina pectoris; I25.5 Ischemic cardiomyopathy; K21.9 Gastro-esophageal reflux disease without esophagitis; M79.605 Pain in left leg; I95.89 Other hypotension; K21.00 Gastro-esophageal reflux disease with esophagitis, without bleeding; Z79.4 Long term (current) use of insulin; F12.90 Cannabis use, unspecified, uncomplicated; Z89.429 Acquired absence of other toe(s), unspecified side; Z79.02 Long term (current) use of antithrombotics/antiplatelets; Z79.01 Long term (current) use of anticoagulants; Z79.82 Long term (current) use of aspirin; S32.030D Wedge compression fracture of third lumbar vertebra, subsequent encounter for fracture with routine healing; Z16.12 Extended spectrum beta lactamase (ESBL) resistance; Z79.899 Other long term (current) drug therapy; Z87.440 Personal history of urinary (tract) infections; R53.81 Other malaise; Z87.81 Personal history of (healed) traumatic fracture; S32.050D Wedge compression fracture of fifth lumbar vertebra, subsequent encounter for fracture with routine healing
CPT/HCPCS: 36415; 71045; 72148; 73706; 80048; 80053; 80076; 82962; 83605; 83735; 83880; 84100; 84443; 85025; 85027; 85610; 85730; 87493; 87506; 93005; 93306; 93922; 93971; 94762; 97110; 97116; 97162; 97166; 97530; 97535; 97802; 99285; Q9957; Q9967; A4216; C8929; J1940; J2405

== ENCOUNTER 2024-09-05 10:28 | Emergency (ER) | payer MEDICAID, SELFPAY ==
[2024-09-05 10:29] VITALS: BP 129/88; PULSE 103; RESP 18; TEMP 36.5; O2SAT 97; BMI 27.2
[2024-09-05 11:27] VITALS: BP 154/97; PULSE 94; RESP 18; O2SAT 96
[2024-09-05] MEDS: Morphine 4 MG/ML Syringe IV ×2 (12:05→15:10)
[2024-09-05] MEDS: 0.9% Normal Saline (500mL Bag) 500 ML 999 ML IV ×2 (12:05→13:23)
[2024-09-05] MEDS: Ondansetron 4 MG/2 ML Vial IV ×2 (12:05→13:23)
[2024-09-05 12:21] LABS: Absolute Lymphocyte Count 1.39 X10^3/uL (0.83-4.51); Absolute Neutrophil Count 7.9 X10^3/uL (2.0-7.7); Basophil# 0.04 X10^3/uL; Basophil% 0.4 % (0-1); Eosinophil# 0.02 X10^3/uL; Eosinophils% 0.2 % (0-5); Hematocrit 44.4 % (37-47); Hemoglobin 15.1 g/dL (12.0-15.0); Lymphocyte # 1.39 X10^3/ul (0.83-4.51); Lymphocyte % 14.1 % (19-41); Mean Corpuscular Hgb 28.1 pg (27.0-32.0); Mean Corpuscular Volume 82.5 fL (81-99); Mean Platelet Vol. 8.7 fl (6.2-12.0); Monocyte% 5.1 % (0-10); NRBC Flagged by Analyzer 0 % (0-5); Neutrophil # 7.88 X10^3/uL (2.7-7.7); Neutrophil % 79.7 % (47-70); Platelet Count 314 K/mm3 (150-450); RBC Distribution Width CV 13.3 % (11.6-14.6); RBC Distribution Width SD 39.7 fl (35.1-43.9); Red Blood Count 5.38 M/mm3 (4.2-5.4); White Blood Count 9.9 K/mm3 (4.4-11.0)
[2024-09-05 12:36] VITALS: BP 100/62; PULSE 90; RESP 15; O2SAT 96
--- NOTE | 2024-09-05 12:38 | EX.ED.DYSGE1 ---
HPI History of Present Illness Chief Complaint: Nausea/Vomiting/Diarrhea Informant: patient Narrative Narrative: Brought in by EMS vomiting diarrhea abdominal pain for last 2 days. Discharged from hospital 3 days ago for left leg pain. She states still has pain down her legs from her back. She is unable to take her medications due to vomiting diarrhea. Least 5 emesis per day, 3 diarrheas per day. No hematemesis, melena or hematochezia. Last diarrhea at 3 AM over 6 hours ago, last emesis was half hour prior to calling EMS. Still has her back pain. From review of records stable compression fractures L3 and L5. No urinary symptoms. Allergies to latex. History of cholecystectomy and appendectomy. [facility] Medical History L5 vertebral fracture ESBL (extended spectrum beta-lactamase) producing bacteria infection Generalized weakness Candidiasis of breast Colitis Debility PTSD (post-traumatic stress disorder) Closed compression fracture of L3 vertebra Hypokalemia Colitis BiPAP (biphasic positive airway pressure) dependence Coronary artery disease On home oxygen therapy Rheumatoid arthritis Sleep apnea Smoker DVT (deep venous thrombosis) Seizures Amputation toe Psychiatric disorder Ischemic cardiomyopathy Diabetes type 2, uncontrolled Essential hypertension Substance abuse Alcohol abuse Depression Osteoporosis GERD (gastroesophageal reflux disease) Pulmonary embolism Myocardial infarct Pericardial effusion Hypoxemia Acute dyspnea Aftercare following surgery of the circulatory system Hx of fracture of humerus Toe amputee Hyperlipidemia CHF (congestive heart failure) CAD (coronary artery disease), [place] coronary artery Home Medications ?Medication ?Instructions ?Recorded ?Last Taken ?Type aspirin 81 mg capsule 81 mg PO DAILY heart health 08/10/22 02/01/23 History clopidogrel 75 mg tablet 75 mg PO DAILY anti platelet #30 02/03/23 02/13/24 10:00 Rx tabs 75 mg pantoprazole 40 mg tablet,delayed 40 mg PO DAILY reflux 04/18/23 02/13/24 10:00 History release 40 mg sacubitril 24 mg-valsartan 26 mg 1 tab PO BID . 30 days #60 tabs 05/07/23 02/13/24 22:00 Rx tablet (Entresto) 1 TAB atorvastatin 80 mg tablet 80 mg PO QHS cholesterol 12/29/23 Unknown History gabapentin 300 mg capsule 300 mg PO TID nerve pain 12/29/23 02/13/24 08:00 History 300 mg insulin glargine 100 unit/mL (3 25 unit subcut DAILY dm 12/29/23 02/13/24 07:00 History mL) subcutaneous pen (Lantus 40 units Solostar U-100 Insulin) insulin lispro 100 unit/mL 1 sliding scale dose subcut TIDCM 12/29/23 Unknown History subcutaneous half-unit pen glucose DIC 2%/RINKU 6%/LIDOC 2% IN 1 - 2 pump subdermal Q6H PRN FOR 02/14/24 Unknown History saltsable FEET cholecalciferol (vitamin D3) 1,250 1,250 mcg PO WE supplement 02/14/24 Unknown History mcg (50,000 unit) tablet spironolactone 25 mg tablet 25 mg PO DAILY water pill 30 days 02/17/24 02/13/24 10:00 Rx #0 tabs 12.5 mg carvedilol 3.125 mg tablet 6.25 mg (2 x 3.125 mg) PO BID 02/19/24 Unknown Rx blood pressure 30 days #0 tabs ergocalciferol (vitamin D2) 1,250 1,250 mcg PO We@1000 #0 caps 02/19/24 Unknown Rx mcg (50,000 unit) capsule (Vitamin D2) insulin glargine 100 unit/mL (3 20 unit (0.2 mL) subcut QPM 30 02/19/24 02/13/24 22:00 Rx mL) subcutaneous pen (Lantus days #0 mL 24 units Solostar U-100 Insulin) escitalopram oxalate 20 mg tablet 20 mg PO DAILY depression 06/29/24 Unknown History furosemide 20 mg tablet 20 mg PO DAILY water pill 06/29/24 Unknown History midodrine 2.5 mg tablet 2.5 mg PO PRN blood pressure 06/29/24 Unknown History polyethylene glycol 3350 17 17 g PO BID PRN constipation 06/29/24 Unknown History gram/dose oral powder (Miralax) sennosides 8.6 mg-docusate sodium 2 tab PO BID PRN constipation 06/29/24 Unknown History 50 mg tablet (Stimulant Laxative Plus) tizanidine 4 mg tablet 4 mg PO 3XD spasm 06/29/24 Unknown History ondansetron HCl 4 mg tablet 4 mg PO Q8H nausea #10 tabs 08/01/24 Unknown Rx acetaminophen 500 mg tablet 1,000 mg (2 x 500 mg) PO Q8 #0 tabs 09/02/24 Unknown Rx ondansetron 4 mg disintegrating 4 mg PO Q8H PRN PRN Nausea #10 tabs 09/05/24 Unknown Rx tablet Allergy/AdvReac Type Severity Reaction Status Date / Time latex Allergy Hives Verified 09/05/24 10:29 Family History Mother Thyroid disorder Diabetes Hypertension Grandmother Diabetes Uncle Diabetes Aunt Diabetes Other Heart disease Surgical History History of cholecystectomy History of appendectomy History of cholecystectomy Social History household members: spouse and children housing: house Smoking Status: Current every day smoker tobacco type: cigarettes alcohol intake: never substance use type: marijuana what type of physical activity do you participate in: none do you feel safe at home: Yes ROS ROS ED Constitutional Constitutional ED: Denies chills, fever(s) or sweats ENT ENT ED: Denies sore throat Cardiovascular Cardiovascular: Denies chest pain, leg edema, palpitations or racing heartbeat Respiratory/Chest Respiratory/Chest: Denies cough, dyspnea or dyspnea on exertion Gastrointestinal Gastrointestinal: Reports abdominal pain, diarrhea, nausea and vomiting Genitourinary Genitourinary ED: Denies dysuria, hematuria or urinary frequency Musculoskeletal Musculoskeletal: Reports back pain; Denies extremity pain or neck pain Integumentary Denies rash or wounds Neurologic Neurologic: Denies headache(s), paresthesias or weakness EXAM Physical Exam Const Vital Signs: 09/05/24 10:29 09/05/24 11:27 09/05/24 12:36 Temperature 97.7 F L Temperature Source Oral Pulse Rate 103 H 94 90 Respiratory Rate 18 18 15 Blood Pressure 129/88 H 154/97 H 100/62 Blood Pressure Mean 101 116 74 Pulse Ox 97 96 96 Oxygen Delivery Method Room Air Room Air Room Air 09/05/24 15:24 Temperature 97.7 F L Temperature Source Pulse Rate 90 Respiratory Rate 15 Blood Pressure 100/62 Blood Pressure Mean 74 Pulse Ox 96 Oxygen Delivery Method Positive well nourished and well developed General Appearance ED: well developed and NAD HEENT Reports moist mucous membranes normocephalic and atraumatic Eyes General Eye ED: Yes normal appearance of both eyes Neck full ROM Chest Wall Chest: Negative for tenderness Resp normal respiratory effort and normal air movement Effort and Inspection: symmetric chest movement; Negative for respiratory distress Cardio regular rate, regular rhythm and no murmurs Peripheral Pulses: pulses 2+ throughout GI normal to inspection, nondistended, normoactive bowel sounds GI Narrative: Mild tenderness, no guarding or rebound. Negative Jimenez's McBurney's tenderness. Palpation: Negative for guarding or rebound tenderness present Back/Spine Back/Spine Narrative: No midline tenderness. Straight leg test negative. Extremity normal to inspection Extremity Narrative: Previous amputations of the toes left leg. General Extremety ED: Negative for edema or tenderness General Extremity: Negative for edema Neuro oriented x3 and no sensory deficits noted Sensorium / Orientation: awake and alert Skin no rashes or lesions noted and no wounds MDM MDM MDM Narrative Medical decision making narrative: Interventions / MDM: Differential diagnosis: Vomiting diarrhea. Sciatica, lumbar disc herniation Diagnosis considered but do not suspect: DKA however gap was normal. No cauda equina symptoms. My EKG interpretation: N/A Imaging independently reviewed and interpreted by myself: N/A External documents reviewed: Hospitalized August 26 discharged September 02. Back pain leg pain CT angiogram diffuse coronary disease. Evaluated by vascular surgery, they did not feel this was the culprit. She was to continue her dual platelet and type therapy with outpatient follow-up. She had MRI lumbar spine stable compression fracture mainly L3 small at L5 however noted disc bulging L3-L4 with canal stenosis more in the left side. Test considered but not ordered:N/A ED course: Nonsurgical abdomen exam vomiting diarrhea 2 days unable to keep things down including her medications per history. IV established for abdominal labs will give fluids Zofran morphine. Will reevaluate. 1310: Pain is improving. Labs all stable. Glucose level was elevated 382 normal gap. No clinical DKA. Still has mild nausea. I discussed her MRI review noting her [id number] disc. Discussed likely causing her radicular symptoms. She is on gabapentin 300 mg 3 times a day for which she still has at home. This was held when she was discharged. This will likely benefit her. She does not see pain management or spine surgery. At this time we will give additional fluids Zofran will reevaluate and p.o. challenge. 1500: Reevaluation tolerating oral intake. She was given gabapentin and oxycodone p.o. However states still has pain in her back that reoccurred. Discussed her prescription oxycodone was discharged she states that the pharmacy and she has not picked it up. She does have her daughter at home to help her. Dose 2 additional IV morphine. With her disc herniation L3-L4 discussed likely culprit for her radicular symptoms. Discussed she has medications to help with her back symptoms. She will be referred to pain management for further treatment options and also to orthospine. She has her gabapentin at home to continue. I will send a prescription for Zofran to her pharmacy. Note she is on insulin for her diabetes. She given IV fluids. She will monitor at home. Outpatient follow-up. All questions were answered. Re-evaluation: stable Disposition discussed with patient/family/significant other: Patient Case discussed with consulting clinician: N/A This note was generated with [employer] dictation software. It may contain incorrect words, spelling, and punctuation that were not noted in checking the note before signing. Lab Data Attestation: I reviewed the patient's lab results. Labs: Laboratory Results - last 24 hr 09/05/24 12:10 WBC 9.9 RBC 5.38 Hgb 15.1 H Hct 44.4 MCV 82.5 MCH 28.1 MCHC 34.0 RDW Std Deviation 39.7 RDW Coeff of Spencer 13.3 Plt Count 314 MPV 8.7 Immature Gran % (Auto) 0.500 Neut % (Auto) 79.7 H Lymph % (Auto) 14.1 L Door % (Auto) 5.1 Eos % (Auto) 0.2 Baso % (Auto) 0.4 Absolute Neuts (auto) 7.9 H Absolute Lymphs (auto) 1.39 Nucleated RBC % 0 Sodium 132 L Potassium 3.6 Chloride 95 L Carbon Dioxide 22.0 Anion Gap 15 BUN 14 Creatinine 0.84 Estim Creat Clear Calc 83.78 Est GFR (MDRD) Non-Af 83 BUN/Creatinine Ratio 16.4 Glucose 382 H Calcium 10.0 Total Bilirubin 0.72 AST 33 H ALT 22 Alkaline Phosphatase 141 H Total Protein 8.2 Albumin 4.2 Globulin 4.0 Albumin/Globulin Ratio 1.0 Lipase 33 Discharge Plan Triage Chief Complaint: Nausea/Vomiting/Diarrhea ED Provider: Zack Card Dx/Rx/DC Orders Clinical Impression: Abdominal pain, vomiting, and diarrhea, Herniated lumbar intervertebral disc, Sciatica, Hyperglycemia due to diabetes mellitus Instructions: ED Diarrhea, Unknown Cause, ED Diet Vomiting Diarrhea, ED Sciatica Prescriptions: New ondansetron 4 mg tablet,disintegrating 4 mg PO Q8H PRN PRN (Reason: Nausea) Qty: 10 0RF No Action pantoprazole 40 mg tablet,delayed release (DR/EC) 40 mg PO DAILY aspirin 81 mg Capsule 81 mg PO DAILY clopidogrel 75 mg Tablet 75 mg PO DAILY Qty: 30 0RF Patient Comments: patient stated pretty sure I still take that sacubitril-valsartan [Entresto] 24-26 mg Tablet 1 tab PO BID 30 Days Qty: 60 0RF insulin glargine [Lantus Solostar U-100 Insulin] 100 unit/mL (3 mL) insulin pen 25 unit subcut DAILY insulin lispro 100 unit/mL insulin pen, half-unit 1 sliding scale dose subcut TIDCM Patient Comments: patient does not know sliding scale atorvastatin 80 mg tablet 80 mg PO QHS gabapentin 300 mg Capsule 300 mg PO TID tizanidine 4 mg tablet 4 mg PO 3XD midodrine 2.5 mg tablet 2.5 mg PO PRN furosemide 20 mg tablet 20 mg PO DAILY escitalopram oxalate 20 mg tablet 20 mg PO DAILY sennosides-docusate sodium [Stimulant Laxative Plus] 8.6-50 mg Tablet 2 tab PO BID PRN (Reason: constipation) polyethylene glycol 3350 [Miralax] 17 gram/dose powder 17 g PO BID PRN (Reason: constipation) acetaminophen 500 mg Tablet 1,000 mg PO Q8 Qty: 0 0RF cholecalciferol (vitamin D3) 1,250 mcg (50,000 unit) tablet 1,250 mcg PO WE DIC 2%/RINKU 6%/LIDOC 2% IN saltsable cream 1 - 2 pump subdermal Q6H PRN (Reason: FOR FEET) spironolactone 25 mg tablet 25 mg PO DAILY 30 Days Qty: 0 0RF ergocalciferol (vitamin D2) [Vitamin D2] 1,250 mcg (50,000 unit) Capsule 1,250 mcg PO We@1000 Qty: 0 0RF carvedilol 3.125 mg tablet 6.25 mg PO BID 30 Days Qty: 0 0RF Rx Instructions: Hold for heart less than 50 or systolic blood pressure less than 100 mmHg. insulin glargine [Lantus Solostar U-100 Insulin] 100 unit/mL (3 mL) insulin pen 20 unit subcut QPM 30 Days Qty: 0 0RF Rx Instructions: Hold if glucose less than 130 mg/dl ondansetron HCl 4 mg tablet 4 mg PO Q8H Qty: 10 0RF Primary Care Provider: Zohreh Pratt Referrals: Vel Swartz MD [Med Staff - Active Staff] - 1-2 Weeks Brandon Bean MD [Med Staff - Active Staff] - 3-5 Days Zohreh Pratt, [employer] [Primary Care Provider] - Activity Restrictions/Additional Instructions: Reviewed your MRI and patient recently. Stable L3 fracture, stable L5 fracture. Noted disc herniation L3-L4, this is likely culprit of your pain on your left leg. Continue your gabapentin 300 g 3 times a day as you have at home. 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 Use Zofran as needed. Follow-up with pain management and orthopedic spine for outpatient evaluation. Monitor your glucose with your insulin. Print Language: Divehi Disposition Disposition: Home, Self Care
[2024-09-05 12:39] LABS: Lipase 33 U/L (13-75)
[2024-09-05 12:42] LABS: AST(SGOT) 33 U/L (<=31); Alanine Aminotransfer ALT/SGPT 22 U/L (<=34); Albumin, Serum 4.2 g/dL (3.5-5.0); Alkaline Phosphatase 141 U/L (35-104); Anion Gap 15 (5-15); BUN 14 mg/dL (4-19); BUN/Creat Ratio 16.4 RATIO (10-20); Chloride 95 mmol/L (98-108); Creatinine, Serum 0.84 mg/dL (0.70-1.20); EST Glomerular Filtration Rate 83 (>60); Estimated Creatinine Clearance 83.78 ml/min (50-250); Glucose 382 mg/dL (70-99); Potassium 3.6 mmol/L (3.3-5.1); Protein, Total 8.2 g/dL (5.9-8.4); Sodium Level 132 mmol/L (133-145); Total Bilirubin 0.72 mg/dL (0.00-1.30)
[2024-09-05] MEDS: oxyCODONE 5 MG Tablet PO (14:05)
[2024-09-05] MEDS: Gabapentin 300 MG Capsule PO (14:06)
[2024-09-05 15:24] VITALS: BP 100/62; PULSE 90; RESP 15; TEMP 36.5; O2SAT 96
== END 2024-09-05 15:37 | disposition home or self-care (01) ==
PROVIDERS: Emergency Provider Emergency Medicine; PCP Nurse Practitioner Family; Visit Provider Emergency Medicine
DX: E11.65 Type 2 diabetes mellitus with hyperglycemia (principal); I11.0 Hypertensive heart disease with heart failure; I50.9 Heart failure, unspecified; M48.56XD Collapsed vertebra, not elsewhere classified, lumbar region, subsequent encounter for fracture with routine healing; R11.2 Nausea with vomiting, unspecified; I25.10 Atherosclerotic heart disease of native coronary artery without angina pectoris; R19.7 Diarrhea, unspecified; F17.210 Nicotine dependence, cigarettes, uncomplicated; E78.5 Hyperlipidemia, unspecified; M51.16 Intervertebral disc disorders with radiculopathy, lumbar region; I25.5 Ischemic cardiomyopathy; Z90.49 Acquired absence of other specified parts of digestive tract; F12.90 Cannabis use, unspecified, uncomplicated; I25.2 Old myocardial infarction; Z86.718 Personal history of other venous thrombosis and embolism; Z99.89 Dependence on other enabling machines and devices
CPT/HCPCS: 80053; 83690; 85025; 96361; 96374; 96375; 96376; 99285; A4216; J2405

== ENCOUNTER 2024-09-07 15:50 | Inpatient (IN) | payer MEDICAID, SELFPAY ==
[2024-09-07] VITALS (9 sets, daily range): BP systolic 120–173; BP diastolic 66–96; PULSE 101–111; RESP 10–22; TEMP 36.3–36.8; O2SAT 96–100; BMI 26.9; BMI 26.1
--- NOTE | 2024-09-07 16:36 | EX.ED.GENINJ ---
HPI History of Present Illness Chief Complaint: Nausea/Vomiting [facility] Medical History L5 vertebral fracture ESBL (extended spectrum beta-lactamase) producing bacteria infection Generalized weakness Candidiasis of breast Colitis Debility PTSD (post-traumatic stress disorder) Closed compression fracture of L3 vertebra Hypokalemia Colitis BiPAP (biphasic positive airway pressure) dependence Coronary artery disease On home oxygen therapy Rheumatoid arthritis Sleep apnea Smoker DVT (deep venous thrombosis) Seizures Amputation toe Psychiatric disorder Ischemic cardiomyopathy Diabetes type 2, uncontrolled Essential hypertension Substance abuse Alcohol abuse Depression Osteoporosis GERD (gastroesophageal reflux disease) Pulmonary embolism Myocardial infarct Pericardial effusion Hypoxemia Acute dyspnea Aftercare following surgery of the circulatory system Hx of fracture of humerus Toe amputee Hyperlipidemia CHF (congestive heart failure) CAD (coronary artery disease), nikolski coronary artery Home Medications ?Medication ?Instructions ?Recorded ?Last Taken ?Type aspirin 81 mg capsule 81 mg PO DAILY heart health 08/10/22 02/01/23 History clopidogrel 75 mg tablet 75 mg PO DAILY anti platelet #30 02/03/23 02/13/24 10:00 Rx tabs 75 mg pantoprazole 40 mg tablet,delayed 40 mg PO DAILY reflux 04/18/23 02/13/24 10:00 History release 40 mg sacubitril 24 mg-valsartan 26 mg 1 tab PO BID . 30 days #60 tabs 05/07/23 02/13/24 22:00 Rx tablet (Entresto) 1 TAB atorvastatin 80 mg tablet 80 mg PO QHS cholesterol 12/29/23 Unknown History gabapentin 300 mg capsule 300 mg PO TID nerve pain 12/29/23 02/13/24 08:00 History 300 mg insulin lispro 100 unit/mL 1 sliding scale dose subcut TIDCM 12/29/23 Unknown History subcutaneous half-unit pen glucose DIC 2%/RINKU 6%/LIDOC 2% IN 1 - 2 pump subdermal Q6H PRN FOR 02/14/24 Unknown History saltsable FEET cholecalciferol (vitamin D3) 1,250 1,250 mcg PO WE supplement 02/14/24 Unknown History mcg (50,000 unit) tablet spironolactone 25 mg tablet 25 mg PO DAILY water pill 30 days 02/17/24 02/13/24 10:00 Rx #0 tabs 12.5 mg carvedilol 3.125 mg tablet 6.25 mg (2 x 3.125 mg) PO BID 02/19/24 Unknown Rx blood pressure 30 days #0 tabs ergocalciferol (vitamin D2) 1,250 1,250 mcg PO We@1000 #0 caps 02/19/24 Unknown Rx mcg (50,000 unit) capsule (Vitamin D2) insulin glargine 100 unit/mL (3 20 unit (0.2 mL) subcut QPM 30 02/19/24 02/13/24 22:00 Rx mL) subcutaneous pen (Lantus days #0 mL 24 units Solostar U-100 Insulin) escitalopram oxalate 20 mg tablet 20 mg PO DAILY depression 06/29/24 Unknown History furosemide 20 mg tablet 20 mg PO DAILY water pill 06/29/24 Unknown History midodrine 2.5 mg tablet 2.5 mg PO PRN blood pressure 06/29/24 Unknown History polyethylene glycol 3350 17 17 g PO BID PRN constipation 06/29/24 Unknown History gram/dose oral powder (Miralax) sennosides 8.6 mg-docusate sodium 2 tab PO BID PRN constipation 06/29/24 Unknown History 50 mg tablet (Stimulant Laxative Plus) tizanidine 4 mg tablet 4 mg PO 3XD spasm 06/29/24 Unknown History acetaminophen 500 mg tablet 1,000 mg (2 x 500 mg) PO Q8 #0 tabs 09/02/24 Unknown Rx ondansetron 4 mg disintegrating 4 mg PO Q8H PRN PRN Nausea #10 tabs 09/05/24 Unknown Rx tablet Allergy/AdvReac Type Severity Reaction Status Date / Time latex Allergy Hives Verified 09/07/24 15:51 Family History Mother Thyroid disorder Diabetes Hypertension Grandmother Diabetes Uncle Diabetes Aunt Diabetes Other Heart disease Surgical History History of cholecystectomy History of appendectomy History of cholecystectomy Social History household members: spouse and children housing: house Smoking Status: Current every day smoker tobacco type: cigarettes alcohol intake: never substance use type: marijuana what type of physical activity do you participate in: none do you feel safe at home: Yes EXAM Physical Exam Const Vital Signs: 09/07/24 15:52 09/07/24 17:30 09/07/24 17:54 Temperature 97.4 F L Temperature Source Oral Pulse Rate 111 H 105 H 105 H Respiratory Rate 22 H 16 12 Blood Pressure 120/76 127/66 H Blood Pressure Mean 90 83 Pulse Ox 97 96 99 Oxygen Delivery Method Room Air 09/07/24 19:00 09/07/24 20:00 09/07/24 21:00 Temperature Temperature Source Pulse Rate 109 H 106 H 101 H Respiratory Rate 12 14 10 L Blood Pressure 144/82 H 120/70 143/79 H Blood Pressure Mean 102 87 99 Pulse Ox 99 99 Oxygen Delivery Method MDM MDM MDM Narrative Medical decision making narrative: HISTORY OF PRESENT ILLNESS: Chief complaint: Nausea vomiting 54-year-old female history of chronic back pain, sciatica, lumbar radiculopathy, type 2 diabetes, CAD, hypertension presents with concern for nausea and vomiting. She states for past 5 days she has had nausea and vomiting and she is unable to take her prescribed Oxy. She notes she has Zofran but is not working. She complains of chronic back pain and feet numbness. States has been ongoing for 6 months. States is been worse because she has been out of her pain meds. She denies ada abdominal pain. Denies blood or green discoloration of her vomitus. Last bowel was yesterday. REVIEW OF SYSTEMS: Pertinent positives: Nausea vomiting, chronic back pain Pertinent negatives: Headache, chest pain, abdominal pain, syncope PHYSICAL EXAM: Nursing triage notes reviewed, Vital signs reviewed Constitutional: please see mdm HENT: MMM Eyes: Pupils equal round and reactive to light, Extraocular muscles intact Neck: No stridor, no JVD, full neck ROM Lungs: Clear to auscultation, No wheezing or rales. No increased work of breathing, no conversational dyspnea, no accessory muscle use, no nasal flaring. No respiratory distress noted Heart: Regular rate and rhythm, No murmurs, No rubs and No gallops, 2+ distal pulses (radial, femoral, posterior tibial) in all extremities Abdomen: Soft, there is no tenderness, rigidity, rebound or guarding, no obvious peritoneal signs, no palpable pulsatile abdominal masses, no auscultated abdominal bruit : No CVAT Extremities: No edema Neuro: Intact sensation L1-S1 dermatomal distributions. Intact 5/5 strength in hip flexion (T12-L3). Knee extension (L2-L4). Ankle dorsiflexion (L4-L5). Ankle plantar flexion (S1). Great toe extension (L5). 2+ patellar and Achilles DTRs. Skin: No rash or lesions noted MEDICAL DECISION MAKING: Chief Complaint: please see HPI External records reviewed: Reviewed recent MRI of the back MRI of the back from August 27, 2024 showed IMPRESSION: 1. Chronic posttraumatic and degenerative changes as described. 2. Multilevel lumbar degenerative disc disease is noted. Reviewed recent hospitalization from August 26, 2024 until September 02, 2024. During his hospitalization the patient was treated for intractable left leg pain that was thought to be secondary to radiculopathy, peripheral artery disease, type 2 diabetes, CHF, Factors affecting care: none Social determinants of health: none History obtained from others: none Consults: none [facility] Narrative: The patient was initially tachycardic, tachypneic and afebrile nontoxic-appearing. Abdomen soft nontender. Lower extremities had intact sensation and movement. I considered the following differential diagnosis: Dehydration, electro disturbance, acute pancreatitis, DKA, I obtained a broad lab workup to further elucidate etiology of the patient's complaints. I considered obtaining a CT scan of the abdomen pelvis given nausea vomiting however the patient did not complain of abdominal pain and abdominal exam was benign. Not consistent with an acute surgical emergency the abdomen or pelvis. I initially resuscitated the patient with IV fluids, Reglan and morphine. I obtained labs to evaluate signs of significant dehydration electrolyte abnormality or acute pancreatitis. ALL IMAGES (IF OBTAINED) HAVE BEEN PERSONALLY REVIEWED AND INTERPRETED BY MYSELF. Initial CBC showed severe anemia that did not seem possible given she had labs done last 2 days which showed a normal hemoglobin. CBC was repeated and showed no leukocytosis, mild anemia and no abdominal cytopenia BMP with severe hypokalemia to 2.5 however this was hemolyzed was likely lower, there is metabolic acidosis as well as hypocalcemia will send for ionized calcium and replace potassium and calcium deficiencies with p.o. and IV formulations. LFTs show no evidence of hepatobiliary pathology. Lipase is wnl indicating no pancreatic inflammation. CT scan abdomen pelvis shows no evidence of obvious surgical pathology EKG with a normal sinus rhythm rate 100, left ax deviation, prolonged QT interval at 482, no STEMI During the patient's ED course she received IV Reglan, Phenergan. She continued to have intractable nausea and vomiting. Given intractable nausea vomiting signs of significant electrolyte disturbances and deficiencies she was admitted to telemetry to undergo further nausea control and electrolyte replacement. The patient and/or family, caregivers express understanding. The patient and/or family, caregivers agrees with the plan. Shared decision making: I will have a discussion with the patient and or visitors regarding risk/benefits of further testing or admission. They will be made aware of of the risk/benefits inherent in this decision they will be given the opportunity to voice understanding. Total critical care time today provided was at least 0 minutes. This excludes separately billable procedures. Critical care time (if documented) is secondary to the patient having high probability of clinically significant/life threatening deterioration in the patient's condition which required my urgent intervention. Impression: 1. Nausea vomiting 2. Chronic back pain 3. Lumbar radiculopathy Dispo: admit to PCU oBS This note was generated with [employer] dictation software. It may contain incorrect words, spelling, and punctuation that were not noted in review of the chart prior to signing. Lab Data Labs: Laboratory Results - last 24 hr 09/07/24 09/07/24 09/07/24 16:55 16:55 17:45 WBC Cancelled 8.4 Corrected WBC Cancelled RBC Cancelled 3.82 L Hgb Cancelled 10.8 L Hct Cancelled 31.8 L MCV Cancelled 83.2 MCH Cancelled 28.3 MCHC Cancelled 34.0 RDW Std Deviation Cancelled 40.4 RDW Coeff of Spencer Cancelled 13.3 Plt Count Cancelled 235 MPV Cancelled 9.3 Immature Gran % (Auto) Cancelled 0.500 Neut % (Auto) Cancelled 77.8 H Lymph % (Auto) Cancelled 14.5 L [place] % (Auto) Cancelled 5.0 Eos % (Auto) Cancelled 1.7 Baso % (Auto) Cancelled 0.5 Absolute Neuts (auto) Cancelled 6.6 Absolute Lymphs (auto) Cancelled 1.22 Total Counted Cancelled Neutrophils % (Manual) Cancelled Band Neutrophils % Cancelled Lymphocytes % (Manual) Cancelled Monocytes % (Manual) Cancelled Eosinophils % (Manual) Cancelled Basophils % (Manual) Cancelled Metamyelocytes % Cancelled Myelocytes % Cancelled Promyelocytes % Cancelled Blast Cells % Cancelled Plasma Cell % (Manual) Cancelled Other Cells % Cancelled Nucleated RBC % Cancelled 0 Nucleated RBCs/100 WBC Cancelled Differential Comment Cancelled Diff Path Review Cancelled Hypersegmented Neuts Cancelled Atypical Lymphocytes Cancelled Reactive Lymphocytes Cancelled Smudge Cells Cancelled Toxic Granulation Cancelled Toxic Vacuolation Cancelled Dohle Bodies Cancelled Truman Rods Cancelled Platelet Estimate Cancelled Plt Morphology Comment Cancelled RBC Morphology Cancelled Cancelled Polychromasia Cancelled Hypochromasia Cancelled Basophilic Stippling Cancelled Anisocytosis Cancelled Microcytosis Cancelled Macrocytosis Cancelled Spherocytes Cancelled Sickle Cells Cancelled Target Cells Cancelled Tear Drop Cells Cancelled Ovalocytes Cancelled Stomatocytes Cancelled [place] Bodies Cancelled [place] Cells Cancelled Bite Cells Cancelled Crenated Cell Cancelled Acanthocytes (Spur) Cancelled Rouleaux Cancelled Schistocytes Cancelled Sodium Cancelled 136 Potassium Cancelled 2.5 L* Chloride Cancelled 108 Carbon Dioxide Cancelled 18.5 L Anion Gap Cancelled 9 BUN Cancelled 17 Creatinine Cancelled 0.92 Estim Creat Clear Calc Cancelled 76.05 Est GFR (MDRD) Non-Af Cancelled 74 BUN/Creatinine Ratio Cancelled 18.5 Glucose Cancelled 283 H Calcium Cancelled 6.5 L* Total Bilirubin Cancelled 0.40 AST Cancelled 19 ALT Cancelled 11 Alkaline Phosphatase Cancelled 85 Total Protein Cancelled 4.7 L Albumin Cancelled 2.6 L Globulin Cancelled 2.1 L Albumin/Globulin Ratio Cancelled 1.3 Lipase Cancelled 28 Blood Type O POSITIVE Antibody Screen NEGATIVE Radiography Diagnostic Testing: Clinical Impression(s) from Imaging Studies Abdomen/Pelvis CT 09/07/24 19:48 IMPRESSION: Intraluminal urinary bladder air, please correlate clinically with recent catheterization versus emphysematous cystitis. Most of the bowel loops are underdistended due to lack of oral contrast. No inflammatory changes are demonstrated. 2 cm indeterminate right adrenal mass, recommend MRI for further characterization. [facility] Triage Chief Complaint: Nausea/Vomiting ED Provider: aDvis Ibarra Dx/Rx/DC Orders Prescriptions: No Action pantoprazole 40 mg tablet,delayed release (DR/EC) 40 mg PO DAILY aspirin 81 mg Capsule 81 mg PO DAILY clopidogrel 75 mg Tablet 75 mg PO DAILY Qty: 30 0RF Patient Comments: patient stated pretty sure I still take that sacubitril-valsartan [Entresto] 24-26 mg Tablet 1 tab PO BID 30 Days Qty: 60 0RF insulin lispro 100 unit/mL insulin pen, half-unit 1 sliding scale dose subcut TIDCM Patient Comments: patient does not know sliding scale atorvastatin 80 mg tablet 80 mg PO QHS gabapentin 300 mg Capsule 300 mg PO TID tizanidine 4 mg tablet 4 mg PO 3XD midodrine 2.5 mg tablet 2.5 mg PO PRN furosemide 20 mg tablet 20 mg PO DAILY escitalopram oxalate 20 mg tablet 20 mg PO DAILY sennosides-docusate sodium [Stimulant Laxative Plus] 8.6-50 mg Tablet 2 tab PO BID PRN (Reason: constipation) polyethylene glycol 3350 [Miralax] 17 gram/dose powder 17 g PO BID PRN (Reason: constipation) acetaminophen 500 mg Tablet 1,000 mg PO Q8 Qty: 0 0RF cholecalciferol (vitamin D3) 1,250 mcg (50,000 unit) tablet 1,250 mcg PO WE DIC 2%/RINKU 6%/LIDOC 2% IN saltsable cream 1 - 2 pump subdermal Q6H PRN (Reason: FOR FEET) spironolactone 25 mg tablet 25 mg PO DAILY 30 Days Qty: 0 0RF ergocalciferol (vitamin D2) [Vitamin D2] 1,250 mcg (50,000 unit) Capsule 1,250 mcg PO We@1000 Qty: 0 0RF carvedilol 3.125 mg tablet 6.25 mg PO BID 30 Days Qty: 0 0RF Rx Instructions: Hold for heart less than 50 or systolic blood pressure less than 100 mmHg. insulin glargine [Lantus Solostar U-100 Insulin] 100 unit/mL (3 mL) insulin pen 20 unit subcut QPM 30 Days Qty: 0 0RF Rx Instructions: Hold if glucose less than 130 mg/dl ondansetron 4 mg tablet,disintegrating 4 mg PO Q8H PRN PRN (Reason: Nausea) Qty: 10 0RF Primary Care Provider: Zohreh Pratt Referrals: Zohreh Pratt, LIVESTOCK EXHIBITOR-C [Primary Care Provider] - Print Language: Mohawk
[2024-09-07] MEDS: 0.9% Normal Saline (1000mL) 1,000 ML 999 ML IV (16:44)
[2024-09-07] MEDS: Metoclopramide 10 MG/2 ML Vial 5 MG IV (16:44)
[2024-09-07] MEDS: Morphine 4 MG/ML Syringe IV (16:44)
--- NOTE | 2024-09-07 16:48 | ED.RN ---
THIS RN DISCUSSED WITH PT THE IMPORTANCE OF MAKING HER JANICE WITH PAIN MANAGEMENT. PT STATES I KNOW,I KNOW BUT I JUST HAVEN'T GOTTEN AROUND TO IT. PT AWARE
[2024-09-07 18:13] LABS: Absolute Lymphocyte Count 1.22 X10^3/uL (0.83-4.51); Absolute Neutrophil Count 6.6 X10^3/uL (2.0-7.7); Basophil# 0.04 X10^3/uL; Basophil% 0.5 % (0-1); Eosinophil# 0.14 X10^3/uL; Eosinophils% 1.7 % (0-5); Hematocrit 31.8 % (37-47); Hemoglobin 10.8 g/dL (12.0-15.0); Lymphocyte # 1.22 X10^3/ul (0.83-4.51); Lymphocyte % 14.5 % (19-41); Mean Corpuscular Hgb 28.3 pg (27.0-32.0); Mean Corpuscular Volume 83.2 fL (81-99); Mean Platelet Vol. 9.3 fl (6.2-12.0); Monocyte# 0.42 X10^3/uL; NRBC Flagged by Analyzer 0 % (0-5); Neutrophil # 6.56 X10^3/uL (2.7-7.7); Neutrophil % 77.8 % (47-70); Platelet Count 235 K/mm3 (150-450); RBC Distribution Width CV 13.3 % (11.6-14.6); RBC Distribution Width SD 40.4 fl (35.1-43.9); Red Blood Count 3.82 M/mm3 (4.2-5.4); White Blood Count 8.4 K/mm3 (4.4-11.0)
[2024-09-07 18:27] LABS: Lipase 28 U/L (13-75)
[2024-09-07] MEDS: proMETHazine 25 MG/ML Syringe 12.5 MG IM (18:33)
[2024-09-07 18:38] LABS: ALB/GLOB Ratio 1.3 RATIO (0.9-2.4); AST(SGOT) 19 U/L (<=31); Alanine Aminotransfer ALT/SGPT 11 U/L (<=34); Albumin, Serum 2.6 g/dL (3.5-5.0); Alkaline Phosphatase 85 U/L (35-104); Anion Gap 9 (5-15); BUN 17 mg/dL (4-19); BUN/Creat Ratio 18.5 RATIO (10-20); Calcium,Total 6.5 mg/dL (7.6-11.0); Carbon Dioxide 18.5 mmol/L (21.0-32.0); Chloride 108 mmol/L (98-108); Creatinine, Serum 0.92 mg/dL (0.70-1.20); EST Glomerular Filtration Rate 74 (>60); Estimated Creatinine Clearance 76.05 ml/min (50-250); Globulin 2.1 g/dL (2.2-4.2); Glucose 283 mg/dL (70-99); Protein, Total 4.7 g/dL (5.9-8.4); Sodium Level 136 mmol/L (133-145)
[2024-09-07 19:12] LABS: Potassium 2.5 mmol/L (3.3-5.1)
[2024-09-07] MEDS: Potassium Chloride Oral Soln 20 MEQ/15 ML UDC 40 MEQ PO (19:24)
[2024-09-07] MEDS: Calcium Gluconate 1 GM/10 ML Vial IVP (19:32)
[2024-09-07] MEDS: Potassium Chloride 10mEq/100mL 10 MEQ/100 ML IV.SOLN. 100 MEQ IV BOLUS ×3 (19:38→22:59)
--- NOTE | 2024-09-07 19:48 | CT_ITS ---
PROCEDURE: ABDOMEN/PELVIS W IV CONT ONLY 09/07/2024 REASON FOR EXAM: ABDOMINAL PAIN, INTRACTABLE NAUSEA AND VOMITING TECHNIQUE: Abdomen and pelvis CT with intravenous contrast. Coronal and Sagittal reconstruction series were provided. PATIENT PREPARATION: Per protocol ORAL CONTRAST TYPE: None. AMOUNT: mL CONTRAST: Isovue 370 VOLUME: 75 mL Not Provided Gauge IV One or more dose reduction techniques were used (e.g., Automated exposure control, adjustment of the mA and/or kV according to patient size, use of iterative reconstruction technique. RADIATION DOSE SUMMARY: CTDlvol: 10 mGy DLP: 556 mGycm COMPARISON: CT of the abdomen and pelvis dated 08/01/2024 FINDINGS: Lung bases: Unremarkable Liver: Normal size. No mass. Gallbladder: Surgically absent. Spleen: Normal size. Pancreas: Diffuse fatty atrophy. Adrenals: 2 cm indeterminate right adrenal mass. Please see recommendations below. Thickening of the left adrenal gland, likely secondary to hyperplasia. Kidneys: Right kidney is grossly unremarkable. No evidence of nephrolithiasis. The left kidney demonstrates a simple cyst within the upper pole. No follow-up is recommended. No evidence of hydronephrosis bilaterally. Bladder: Intraluminal urinary bladder air, please correlate clinically with recent catheterization. Alternatively this may represent emphysematous cystitis. Please correlate clinically. Reproductive Organs: The uterus is grossly unremarkable. Bowel: Evaluation of the bowel loops are limited due to lack of oral contrast. Stomach appears grossly unremarkable. Small bowel loops appear grossly unremarkable. Most of the large bowel is under distended, limiting evaluation. Appendix: Not clearly visualized, likely surgically absent, please correlate clinically. Lymph nodes: No lymphadenopathy. Vasculature: Mild diffuse atherosclerotic calcifications are noted. Peritoneum / Retroperitoneum: No free air or free fluid. Bones: Status post ORIF of the right hip. Chronic compression fracture deformity of L3 and superior compression fracture deformity of L5 vertebral body. No significant interval change. Degenerative changes of the lumbar spine. CT/Abdomen/Pelvis W IV Cont ONLY IMPRESSION: Intraluminal urinary bladder air, please correlate clinically with recent tod terization versus emphysematous cystitis. Most of the bowel loops are underdistended due to lack of oral contrast. No in flammatory changes are demonstrated. 2 cm indeterminate right adrenal mass, recommend MRI for further characterizati on. Reading Location: [facility]
--- NOTE | 2024-09-07 20:05 | EKG12_ITS ---
Test Reason : DYSRHYTHMIA Blood Pressure : */* mmHG Vent. Rate : 100 BPM Atrial Rate : 100 BPM P-R Int : 176 ms QRS Dur : 122 ms QT Int : 374 ms P-R-T Axes : 55 -49 77 degrees QTcB Int : 482 ms Normal sinus rhythm Left axis deviation Minimal voltage criteria for LVH, may be normal variant ( [place] product ) Septal infarct (cited on or before 26-Aug-2021) Abnormal ECG Confirmed by TIP HERNANDEZ, LORETA ([id number]), book or script editor RIKY HOANG ([id number]) on 09/08/2024 9:15:32 AM Referred By: Confirmed By: LORETA WHELAN MD
[2024-09-07] MEDS: Haloperidol Lactate 5 MG/ML Vial 2 MG IV (20:16)
[2024-09-07 20:22] LABS: Ionized Calcium Order ORDER TUBE
--- NOTE | 2024-09-07 20:48 | ED.RN ---
Pt states she doesn't know any of her home medications, although she manages her own meds at home. [facility]. All scripts from med rec are outdated, this RN uncomfortable confirming any scripts. [facility] will need to be contacted during open hours.
--- NOTE | 2024-09-07 20:50 | CM.ED ---
Social Work Date of referral: 09/07/24 Reason for referral: High ED utilization/request from ED nurse for ED Care Plan Referred by: ED nurse Patient provided consent to social work visit. Patient lying in bed, feeling nauseous. Computer Technical Specialist attempted to talk with patient about the number of ED visits and to inquire about current providers/specialists/resources to see if there are any additional outside resources can be secured to help patient feel like her conditions are more managed. Patient stated she still needs to get connected with Dr. Pagan and Dr. Lugo. Patient lives with her 21 year old daughter. The more social media project manager verbally engaged with patient, the more escalated patient became and started to cry out louder in pain. grain ii farmworker made the decision to terminate the discussion in an effort to help calm patient. grain ii farmworker asked patient if it would be helpful to turn off the bright overhead lights and leave just one small light on over the counter which patient requested. grain ii farmworker stayed in the room and coached patient with some deep breathing exercises which patient practiced and as a result, patient began to almost drift off into a sleep. No other information was able to be obtained during this contact. Computer Technical Specialist will notify water treatment plant supervisor of request for a care plan. Griselda Bhatt, SUPPLIER QUALITY MANAGER, ENGINE TEST CELL TECHNICIAN
[2024-09-07] MEDS: Ketorolac 15 MG/ML Vial IV (21:22)
--- NOTE | 2024-09-07 21:34 | PCM.HP.STD ---
HPI - General General Date of Admission: 09/07/24 Date of Service: 09/07/24 Chief Complaint: Intractable N/V, loose stools. HPI Narrative The patient is a 54 y/o F w/ PMHx: GWYN, Poorly controlled Diabetes mellitus type II, Chronic hypotension, HTN, HLD, Orthostatic hypotension on midodrine, Tobacco use, GERD, PAD s/p peripheral PCI, L3-L5 compression fracture with intractable pain with left lower extremity radiculopathy in addition to PAD associated ischemic pain, HFrEF, Anxiety and Depression, recent admission 08/26/24-09/02/2024 with left lower extremity intractable pain secondary to compression fractures in the L3-L5 region in addition to peripheral arterial disease with history of peripheral PCI to the left lower extremity in addition to significant diarrhea which resolved who re-presents to the [facility] ED on 09/07/24 with history of intractable nausea and emesis persisting over the last 5 days and not improving utilizing Zofran at home however it has not been significantly effective unable to take her chronic pain medication although she then reports to ED physician that she may be out of her medication with no associated abdominal pain although in the ED exam with generalized discomfort with palpation with last bowel movement the day prior noted to be normal but given ongoing prompted ED evaluation. Workup in the ED included T97.4, heart rate 111, BP 120/76, respiratory rate 22, 97% on room air with most recent repeat vitals heart rate 101, BP 143/79, respiratory rate 14, 99% on room air, CBC with WBC 8.4, he 1 10.8, MCV 83.2, platelet 235 without marked shift, CMP with potassium 2.5 with noted hemolysis also present, CO2 18.5, BUN/creatinine 17/0.92, GFR 74, glucose 283, calcium 6.5, hepatic profile not marked appearing, CT abdomen and pelvis with intraluminal urinary bladder air possibly secondary to recent catheterization versus emphysematous cystitis, bowel loops under distended due to lack of oral contrast with no inflammatory changes demonstrated, 2 cm indeterminate right adrenal mass. In the ED patient administered 1 L normal saline, calcium gluconate 1 g IV x 1. UA ordered but not obtained upon requested evaluation of patient. [facility] Medical History L5 vertebral fracture ESBL (extended spectrum beta-lactamase) producing bacteria infection Generalized weakness Candidiasis of breast Colitis Debility PTSD (post-traumatic stress disorder) Closed compression fracture of L3 vertebra Hypokalemia Colitis BiPAP (biphasic positive airway pressure) dependence Coronary artery disease On home oxygen therapy Rheumatoid arthritis Sleep apnea Smoker DVT (deep venous thrombosis) Seizures Amputation toe Psychiatric disorder Ischemic cardiomyopathy Diabetes type 2, uncontrolled Essential hypertension Substance abuse Alcohol abuse Depression Osteoporosis GERD (gastroesophageal reflux disease) Pulmonary embolism Myocardial infarct Pericardial effusion Hypoxemia Acute dyspnea Aftercare following surgery of the circulatory system Hx of fracture of humerus Toe amputee Hyperlipidemia CHF (congestive heart failure) CAD (coronary artery disease), [place] coronary artery Home Medications ?Medication ?Instructions ?Recorded ?Last Taken ?Type aspirin 81 mg capsule 81 mg PO DAILY heart health 08/10/22 02/01/23 History clopidogrel 75 mg tablet 75 mg PO DAILY anti platelet #30 02/03/23 02/13/24 10:00 Rx tabs 75 mg pantoprazole 40 mg tablet,delayed 40 mg PO DAILY reflux 04/18/23 02/13/24 10:00 History release 40 mg sacubitril 24 mg-valsartan 26 mg 1 tab PO BID . 30 days #60 tabs 05/07/23 02/13/24 22:00 Rx tablet (Entresto) 1 TAB atorvastatin 80 mg tablet 80 mg PO QHS cholesterol 12/29/23 Unknown History gabapentin 300 mg capsule 300 mg PO TID nerve pain 12/29/23 02/13/24 08:00 History 300 mg insulin lispro 100 unit/mL 1 sliding scale dose subcut TIDCM 12/29/23 Unknown History subcutaneous half-unit pen glucose DIC 2%/RINKU 6%/LIDOC 2% IN 1 - 2 pump subdermal Q6H PRN FOR 02/14/24 Unknown History saltsable FEET cholecalciferol (vitamin D3) 1,250 1,250 mcg PO WE supplement 02/14/24 Unknown History mcg (50,000 unit) tablet spironolactone 25 mg tablet 25 mg PO DAILY water pill 30 days 02/17/24 02/13/24 10:00 Rx #0 tabs 12.5 mg carvedilol 3.125 mg tablet 6.25 mg (2 x 3.125 mg) PO BID 02/19/24 Unknown Rx blood pressure 30 days #0 tabs ergocalciferol (vitamin D2) 1,250 1,250 mcg PO We@1000 #0 caps 02/19/24 Unknown Rx mcg (50,000 unit) capsule (Vitamin D2) insulin glargine 100 unit/mL (3 20 unit (0.2 mL) subcut QPM 30 02/19/24 02/13/24 22:00 Rx mL) subcutaneous pen (Lantus days #0 mL 24 units Solostar U-100 Insulin) escitalopram oxalate 20 mg tablet 20 mg PO DAILY depression 06/29/24 Unknown History furosemide 20 mg tablet 20 mg PO DAILY water pill 06/29/24 Unknown History midodrine 2.5 mg tablet 2.5 mg PO PRN blood pressure 06/29/24 Unknown History polyethylene glycol 3350 17 17 g PO BID PRN constipation 06/29/24 Unknown History gram/dose oral powder (Miralax) sennosides 8.6 mg-docusate sodium 2 tab PO BID PRN constipation 06/29/24 Unknown History 50 mg tablet (Stimulant Laxative Plus) tizanidine 4 mg tablet 4 mg PO 3XD spasm 06/29/24 Unknown History acetaminophen 500 mg tablet 1,000 mg (2 x 500 mg) PO Q8 #0 tabs 09/02/24 Unknown Rx ondansetron 4 mg disintegrating 4 mg PO Q8H PRN PRN Nausea #10 tabs 09/05/24 Unknown Rx tablet Allergy/AdvReac Type Severity Reaction Status Date / Time latex Allergy Hives Verified 09/07/24 15:51 Family History Mother Thyroid disorder Diabetes Hypertension Grandmother Diabetes Uncle Diabetes Aunt Diabetes Other Heart disease Surgical History History of cholecystectomy History of appendectomy History of cholecystectomy Social History household members: spouse and children housing: house Smoking Status: Current every day smoker tobacco type: cigarettes alcohol intake: never substance use type: marijuana what type of physical activity do you participate in: none do you feel safe at home: Yes ROS ROS Narrative Admission Review of Systems: CONSTITUTIONAL: No weight loss, fever, chills, + weakness or fatigue. HEENT: Eyes: No visual loss, blurred vision, double vision or yellow sclerae. Ears, Nose, Throat: No hearing loss, sneezing, congestion, runny nose or sore throat. SKIN: No rash or itching, lesions, wounds except occasional + stage ecchymoses. CARDIOVASCULAR: No chest pain, chest pressure or chest discomfort, palpitations, edema, orthopnea, syncopal events. RESPIRATORY: No shortness of breath, cough or sputum, wheezing, hemoptysis. GASTROINTESTINAL: + anorexia, nausea, vomiting, diarrhea, denied abdominal pain but diffuse discomfort on palpation of the abdomen. No melena, BRBPR. GENITOURINARY: No dysuria, frequency, urgency or retention. NEUROLOGICAL: No headache, dizziness, syncope, paralysis, ataxia, numbness or tingling in the extremities, focal weakness, change in bowel or bladder control, seizure. MUSCULOSKELETAL: + muscle, back pain, joint pain or stiffness. HEMATOLOGIC: + Chronic anemia, easy bleeding/bruising. LYMPHATICS: No enlarged nodes. No history of splenectomy. PSYCHIATRIC: + History anxiety and depression. ENDOCRINOLOGIC: No reports of sweating, cold or heat intolerance. No polyuria or polydipsia. ALLERGIES: + History of hives. Vital Signs Vital Signs Vital Signs: 09/07/24 15:52 09/07/24 17:30 09/07/24 17:54 Temperature 97.4 F L Temperature Source Oral Pulse Rate 111 H 105 H 105 H Respiratory Rate 22 H 16 12 Blood Pressure 120/76 127/66 H Blood Pressure Mean 90 83 Pulse Ox 97 96 99 Oxygen Delivery Method Room Air 09/07/24 19:00 09/07/24 20:00 09/07/24 21:00 Temperature Temperature Source Pulse Rate 109 H 106 H 101 H Respiratory Rate 12 14 10 L Blood Pressure 144/82 H 120/70 143/79 H Blood Pressure Mean 102 87 99 Pulse Ox 99 99 Oxygen Delivery Method Weight Weight: 171 lb 11.841 oz Body Mass Index (BMI) 26.9 Physical Exam Narrative Physical Examination: General: Awake, alert, oriented x 3 and cooperative, laying in ED bed, notes mildly improved following ED medications, fatigued Skin: Normal color, normal turgor, no icterus, no cyanosis except occasional stage ecchymoses. HEENT: AT/NC, EOMI, PERRLA, moderately dry MM, no carotid bruits or JVD noted. Lungs: Mildly diminished, greater bases, appropriate effort, no rales, ronchi or wheezing. Heart: Mildly tachycardic with regular rhythm; no gallop, rub audible. Abdomen: Soft, generalized discomfort with palpation of the abdomen with no rebound or guarding, hyperactive bowel sounds, no obvious distention, no obvious discerned HSM. Extremities: No cyanosis, clubbing, or edema. Neurological: Patient awake, alert, oriented as noted, cognitive function intact; pupils equally reactive to light and accommodation, cranial nerves gross normal, moving all 4 extremities, no focal deficits, strength severely globally decreased secondary to acute presentation complaints Psychiatric: Affect appears flat, fatigued, no acute evidence of depressive or anxiety feelings but does have underlying history. Results Lab / Micro Data 09/07/24 17:45 09/07/24 17:45 Labs: Laboratory Results - last 24 hr 09/07/24 16:55: WBC Cancelled, Corrected WBC Cancelled, RBC Cancelled, Hgb Cancelled, Hct Cancelled, MCV Cancelled, MCH Cancelled, MCHC Cancelled, RDW Std Deviation Cancelled, RDW Coeff of Spencer Cancelled, Plt Count Cancelled, MPV Cancelled, Immature Gran % (Auto) Cancelled, Neut % (Auto) Cancelled, Lymph % (Auto) Cancelled, [place] % (Auto) Cancelled, Eos % (Auto) Cancelled, Baso % (Auto) Cancelled, Absolute Neuts (auto) Cancelled, Absolute Lymphs (auto) Cancelled, Total Counted Cancelled, Neutrophils % (Manual) Cancelled, Band Neutrophils % Cancelled, Lymphocytes % (Manual) Cancelled, Monocytes % (Manual) Cancelled, Eosinophils % (Manual) Cancelled, Basophils % (Manual) Cancelled, Metamyelocytes % Cancelled, Myelocytes % Cancelled, Promyelocytes % Cancelled, Blast Cells % Cancelled, Plasma Cell % (Manual) Cancelled, Other Cells % Cancelled, Nucleated RBC % Cancelled, Nucleated RBCs/100 WBC Cancelled, Differential Comment Cancelled, Diff Path Review Cancelled, Hypersegmented Neuts Cancelled, Atypical Lymphocytes Cancelled, Reactive Lymphocytes Cancelled, Smudge Cells Cancelled, Toxic Granulation Cancelled, Toxic Vacuolation Cancelled, Dohle Bodies Cancelled, Truman Rods Cancelled, Platelet Estimate Cancelled, Plt Morphology Comment Cancelled, RBC Morphology Cancelled 09/07/24 16:55: RBC Morphology Cancelled, Polychromasia Cancelled, Hypochromasia Cancelled, Basophilic Stippling Cancelled, Anisocytosis Cancelled, Microcytosis Cancelled, Macrocytosis Cancelled, Spherocytes Cancelled, Sickle Cells Cancelled, Target Cells Cancelled, Tear Drop Cells Cancelled, Ovalocytes Cancelled, Stomatocytes Cancelled, Burris-Ludell Bodies Cancelled, [place] Cells Cancelled, Bite Cells Cancelled, Crenated Cell Cancelled, Acanthocytes (Spur) Cancelled, Rouleaux Cancelled, Schistocytes Cancelled, Sodium Cancelled, Potassium Cancelled, Chloride Cancelled, Carbon Dioxide Cancelled, Anion Gap Cancelled, BUN Cancelled, Creatinine Cancelled, Estim Creat Clear Calc Cancelled, Est GFR (MDRD) Non-Af Cancelled, BUN/Creatinine Ratio Cancelled, Glucose Cancelled, Calcium Cancelled, Total Bilirubin Cancelled, AST Cancelled, ALT Cancelled, Alkaline Phosphatase Cancelled, Total Protein Cancelled, Albumin Cancelled, Globulin Cancelled, Albumin/Globulin Ratio Cancelled, Lipase Cancelled 09/07/24 17:45: WBC 8.4, RBC 3.82 L, Hgb 10.8 L, Hct 31.8 L, MCV 83.2, MCH 28.3, MCHC 34.0, RDW Std Deviation 40.4, RDW Coeff of Spencer 13.3, Plt Count 235, MPV 9.3, Immature Gran % (Auto) 0.500, Neut % (Auto) 77.8 H, Lymph % (Auto) 14.5 L, [place] % (Auto) 5.0, Eos % (Auto) 1.7, Baso % (Auto) 0.5, Absolute Neuts (auto) 6.6, Absolute Lymphs (auto) 1.22, Nucleated RBC % 0, Sodium 136, Potassium 2.5 L*, Chloride 108, Carbon Dioxide 18.5 L, Anion Gap 9, BUN 17, Creatinine 0.92, Estim Creat Clear Calc 76.05, Est GFR (MDRD) Non-Af 74, BUN/Creatinine Ratio 18.5, Glucose 283 H, Calcium 6.5 L*, Total Bilirubin 0.40, AST 19, ALT 11, Alkaline Phosphatase 85, Total Protein 4.7 L, Albumin 2.6 L, Globulin 2.1 L, Albumin/Globulin Ratio 1.3, Lipase 28, Blood Type O POSITIVE, Antibody Screen NEGATIVE Imaging Radiology Impression Abdomen/Pelvis CT 09/07/24 19:48 IMPRESSION: Intraluminal urinary bladder air, please correlate clinically with recent catheterization versus emphysematous cystitis. Most of the bowel loops are underdistended due to lack of oral contrast. No inflammatory changes are demonstrated. 2 cm indeterminate right adrenal mass, recommend MRI for further characterization. [facility] Assessment/Plan (1) Intractable nausea and vomiting: PLAN: Plan The patient is a 54 y/o F w/ PMHx: GWYN, Poorly controlled Diabetes mellitus type II, Chronic hypotension, HTN, HLD, Orthostatic hypotension on midodrine, Tobacco use, GERD, PAD s/p peripheral PCI, L3-L5 compression fracture with intractable pain with left lower extremity radiculopathy in addition to PAD associated ischemic pain, HFrEF, Anxiety and Depression, recent admission 08/26/24-09/02/2024 with left lower extremity intractable pain secondary to compression fractures in the L3-L5 region in addition to peripheral arterial disease with history of peripheral PCI to the left lower extremity in addition to significant diarrhea which resolved who re-presents to the [facility] ED on 09/07/24 with history of intractable nausea and emesis persisting over the last 5 days and not improving utilizing Zofran at home however it has not been significantly effective unable to take her chronic pain medication although she then reports to ED physician that she may be out of her medication with no associated abdominal pain with last bowel movement the day prior noted to be normal but given ongoing prompted ED evaluation. #1. Intractable nausea and emesis, loose stools which unfortunately is chronic for patient, questionable gastroenteritis: Will admit to PCU given electrolyte disturbances as noted, continue judicious hydration, will request C. difficile and enteric if recurrent diarrhea, administered significant regimen in the ED including Haldol thus hopefully this will assist with intractable nausea and emesis, on oral regimen schedule outpatient but may consider transition to IV given current presentation for the next 24 hours to assist with intractable nausea/emesis, will have other as needed antiemetic regimen, maintain on fall precautions, continue electrolyte correction as noted, awaiting urinalysis to make sure that patient does not have a UTI but she has no urinary symptoms at this time. PT/OT/case management consulted for discharge planning. #2. CT noted Possible emphysematous cystitis: Patient with no urinary bladder complaints, UA is pending upon request evaluation of patient, last urine culture 08/01/2024 with ESBL E. coli of note greater than 100,000, will await urinalysis and if concerning appearing will initiate regimen. Procalcitonin requested. #3. Hypocalcemia, Unclear etiology: Admission calcium 6.5, calcium gluconate 1 g IV x 1 administered in the ED, will obtain ionized calcium, obtain vitamin D level (25-(OH)D, 1,25-(OH)2D), PTH, Mag, Phos, UCa levels to further assess. #4. Hypokalemia: Admission K+ 2.5, magnesium level requested, supplementation given, repeat level in AM. Hemolysis also noted thus likely even further decreased, will give an additional 20 mill equivalents is 40 mill equivalents given in the ED. #5. Right adrenal mass: CT scan with a 2 cm indeterminate right adrenal mass, will need follow-up further imaging outpatient. #6. Questionable Acute on Chronic normocytic anemia: Admission hemoglobin 10.8, MCV 83.2, hemoglobin 14 and 09/05/2024 hemoglobin 15.1, however prior to this baseline primarily 10-11 thus uncertain if these 2 in the intermediate section or falsely elevated, we will continue to trend to further elucidate. #7. Recent acute intractable left lower extremity pain secondary to PAD and lumbar compression fracture with radiculopathy: Recent admission with discharge 09/02/2024 with workup during presentation with L3-L5 compression fracture felt contributing in addition to chronic PAD with CTA with runoff with severe disease however vascular surgery felt likely not the primary etiology is decent flow on evaluation purportedly and although ABIs abnormal not significantly impaired to need acute intervention per vascular surgery report status post previous PCI to the left lower extremity, continue aspirin, Plavix, statin, hypertensive regimen, oxycodone, gabapentin with adjustments as needed. #8. Hypertension: Continue home regimen including Entresto, spironolactone, Coreg, Lasix with hold parameters as needed, PRN hydralazine. #9. Hyperlipidemia: We will continue patient on statin therapy. #10. Orthostatic hypotension: Noted history, on low-dose midodrine noted to only be as needed but will clarify to be certain. #11. Chronic Kidney Disease Stage II versus stage III per GFR trending, tends to vacillate this uncertain: Admission BUN/Cr 17/0.92, GFR 74, baseline renal function 0.6-0.9, repeat BMP in AM. #12. HFrEF: 09/02/2024 echo with LVEF 30%, normal LV size, regional wall motion abnormalities, LV systolic function improved from previous. Given history will very judiciously hydrate only if necessary, continue aspirin, Plavix, statin, Entresto, Coreg, spironolactone, Lasix home regimen. Monitor daily weights. #13. Poorly controlled diabetes mellitus type II with chronic neuropathy: Recent hemoglobin A1c 02/15/2024 9.8%, hold oral home regimen, continue home insulin regimen, clears until improving, accu checks w/ ISS, continue home gabapentin regimen. #14. Anxiety and depression: Will continue patient home Haldol, escitalopram home regimen. #15. Tobacco Abuse: Encouraged cessation, inpatient consultation per RT, NR if desired. #16. GERD with history of esophagitis: Will continue PPI temporally transition to IV PPI given intractable nausea and emesis until improving. Patient has per last admission plan follow-up with GI outpatient for follow-up EGD and colonoscopy once clinically appropriate. #17. GWYN: Will hold PAP therapy given N/V, may add once resolved. #18. DVT prophylaxis: Lovenox. #19. CODE status: Patient HCPOA and living will are not in place but she notes her mother and daughter would be her medical decision makers if necessary. Discussed CODE status at length including difference between FULL code, DNR-CCA and DNR-CC status. Following discussions about the differences in these status, requested Full Code status. Advanced Care Planning Face to Face Time: 16 minutes. Charges/Coding Visit Charges Inpatient E&M: 99533 Init Hosp L3 Procedures Hospitalists Procedures: 48916 Advncd Care Plan 30 Min
[2024-09-07 21:54] LABS: Magnesium 1.2 mg/dL (1.5-2.2)
[2024-09-07 22:22] LABS: Phosphorus 2.5 mg/dL (2.7-4.5)
[2024-09-07] MEDS: Pantoprazole Sodium 40 MG in 0.9% Normal Saline (100mL MB+) 100 ML 330 MG IV (22:59)
[2024-09-07] MEDS: 0.9% Normal Saline (1000mL) 1,000 ML 75 ML IV (23:10)
[2024-09-07] MEDS: Haloperidol Lactate 5 MG/ML Vial IV (23:33)
[2024-09-07] MEDS: SACUBITRIL/VALSARTAN 24/26 MG TABLET 1 EACH PO (23:39)
[2024-09-07] MEDS: tiZANidine HCl 2 MG Tablet 4 MG PO (23:40)
[2024-09-07] MEDS: Atorvastatin Calcium 80 MG Tablet PO (23:40)
[2024-09-07] MEDS: Gabapentin 300 MG Capsule PO (23:40)
[2024-09-07] MEDS: Carvedilol 6.25 MG Tablet PO (23:40)
[2024-09-07] MEDS: Insulin Lispro 100 UNIT/ML INSULN.PEN SC (23:51)
[2024-09-07] MEDS: Acetaminophen 325 MG Tablet 650 MG PO (23:52)
[2024-09-07] MEDS: oxyCODONE 5 MG Tablet PO (23:52)
[2024-09-08] VITALS (11 sets, daily range): BP systolic 70–122; BP diastolic 38–76; PULSE 67–86; RESP 15–18; TEMP 36.3–36.7; O2SAT 95–100; BMI 26.4
[2024-09-08] MEDS: CLARIFY ORDER 1 EACH NOTE (00:12)
[2024-09-08 00:15] LABS: Bedside Glucose 250 mg/dL (74-106)
[2024-09-08 00:15] LABS: Procalcitonin 0.14 ng/mL (<=0.10)
[2024-09-08] MEDS: Potassium Chloride 10mEq/100mL 10 MEQ/100 ML IV.SOLN. 100 MEQ IV BOLUS (00:21)
[2024-09-08] MEDS: 0.9% Saline Lock 10 ML Syringe IV (00:22)
[2024-09-08 00:26] LABS: Anion Gap 13 (5-15); BUN 16 mg/dL (4-19); BUN/Creat Ratio 17.5 RATIO (10-20); Calcium,Total 9.2 mg/dL (7.6-11.0); Carbon Dioxide 21.1 mmol/L (21.0-32.0); Chloride 100 mmol/L (98-108); Creatinine, Serum 0.89 mg/dL (0.70-1.20); EST Glomerular Filtration Rate 78 (>60); Estimated Creatinine Clearance 77.55 ml/min (50-250); Glucose 266 mg/dL (70-99); Potassium 3.2 mmol/L (3.3-5.1); Sodium Level 134 mmol/L (133-145)
[2024-09-08] MEDS: Haloperidol Lactate 5 MG/ML Vial IV ×2 (04:27→10:07)
[2024-09-08] MEDS: Insulin Lispro 100 UNIT/ML INSULN.PEN SC ×4 (04:27→22:01)
[2024-09-08 04:51] LABS: Bedside Glucose 205 mg/dL (74-106)
[2024-09-08] MEDS: Gabapentin 300 MG Capsule PO ×2 (05:41→13:15)
[2024-09-08] MEDS: tiZANidine HCl 2 MG Tablet 4 MG PO ×3 (05:41→22:02)
[2024-09-08 06:55] LABS: Absolute Lymphocyte Count 2.06 X10^3/uL (0.83-4.51); Absolute Neutrophil Count 5.2 X10^3/uL (2.0-7.7); Basophil# 0.07 X10^3/uL; Basophil% 0.9 % (0-1); Eosinophil# 0.19 X10^3/uL; Eosinophils% 2.4 % (0-5); Hematocrit 36.8 % (37-47); Hemoglobin 12.2 g/dL (12.0-15.0); Lymphocyte # 2.06 X10^3/ul (0.83-4.51); Lymphocyte % 25.7 % (19-41); Mean Corp Hgb Conc 33.2 g/dL (32-36); Mean Corpuscular Hgb 27.6 pg (27.0-32.0); Mean Corpuscular Volume 83.3 fL (81-99); Mean Platelet Vol. 9.5 fl (6.2-12.0); Monocyte# 0.48 X10^3/uL; NRBC Flagged by Analyzer 0 % (0-5); Neutrophil # 5.18 X10^3/uL (2.7-7.7); Neutrophil % 64.6 % (47-70); Platelet Count 275 K/mm3 (150-450); RBC Distribution Width CV 13.5 % (11.6-14.6); RBC Distribution Width SD 40.7 fl (35.1-43.9); Red Blood Count 4.42 M/mm3 (4.2-5.4)
[2024-09-08 06:57] LABS: Ionized Calcium 1.25 mmol/L (1.09-1.30)
[2024-09-08 07:03] LABS: Ionized Calcium 1.08 mmol/L (1.09-1.30)
[2024-09-08 07:23] LABS: ALB/GLOB Ratio 1.2 RATIO (0.9-2.4); AST(SGOT) 23 U/L (<=31); Alanine Aminotransfer ALT/SGPT 14 U/L (<=34); Albumin, Serum 3.1 g/dL (3.5-5.0); Alkaline Phosphatase 105 U/L (35-104); Anion Gap 11 (5-15); BUN 15 mg/dL (4-19); BUN/Creat Ratio 16.9 RATIO (10-20); Calcium,Total 8.8 mg/dL (7.6-11.0); Carbon Dioxide 20.3 mmol/L (21.0-32.0); Chloride 105 mmol/L (98-108); Creatinine, Serum 0.88 mg/dL (0.70-1.20); EST Glomerular Filtration Rate 78 (>60); Estimated Creatinine Clearance 78.43 ml/min (50-250); Globulin 2.7 g/dL (2.2-4.2); Glucose 203 mg/dL (70-99); Potassium 3.1 mmol/L (3.3-5.1); Protein, Total 5.9 g/dL (5.9-8.4); Sodium Level 136 mmol/L (133-145); Total Bilirubin 0.65 mg/dL (0.00-1.30); Vitamin D,25 Hydroxy 14.3 ng/mL (30-100)
[2024-09-08 07:58] LABS: PTHIN 28 pg/mL (11-61)
[2024-09-08] MEDS: oxyCODONE 5 MG Tablet PO (09:40)
[2024-09-08] MEDS: Carvedilol 6.25 MG Tablet PO (09:40)
[2024-09-08] MEDS: Enoxaparin 40 MG/0.4 ML Syringe SC (09:40)
[2024-09-08] MEDS: Escitalopram Oxalate 20 MG Tablet PO (09:41)
[2024-09-08] MEDS: Furosemide 20 MG Tablet PO (09:41)
[2024-09-08] MEDS: Spironolactone 25 MG Tablet PO (09:41)
[2024-09-08] MEDS: Aspirin 81 MG TAB.CHEW PO (09:42)
[2024-09-08] MEDS: Clopidogrel Bisulfate 75 MG Tablet PO (09:42)
[2024-09-08] MEDS: Midodrine HCl 5 MG Tablet 2.5 MG PO (09:42)
[2024-09-08] MEDS: SACUBITRIL/VALSARTAN 24/26 MG TABLET 1 EACH PO (09:43)
[2024-09-08] MEDS: Pantoprazole Sodium 40 MG in 0.9% Normal Saline (100mL MB+) 100 ML 330 MG IV ×2 (09:44→23:32)
--- NOTE | 2024-09-08 10:00 | PCM.PN.HOSP ---
Reason for Visit Reason for Visit: Diagnoses Nausea with vomiting, unspecified (09/07/24) Subjective Subjective Patient evaluated at bedside, she reports that she is not feeling nauseous anymore and does not think she has had another bowel movement, denies any abdominal pain but does report back and leg pain which is her main complaint today Objective Data Objective Data Vital Signs: Vital Signs Temp Pulse Resp BP Pulse Ox O2 Del Method 97.6 F L 74 16 112/66 96 Room Air 09/08/24 04:11 09/08/24 04:11 09/08/24 04:11 09/08/24 04:11 09/08/24 04:11 09/08/24 04:15 Oxygen Delivery Method Room Air Weight: 76.5 kg Body Mass Index (BMI) 26.4 Intake & Output: Intake and Output for Last 24 Hours 09/06/24 09/07/24 09/08/24 23:59 23:59 23:59 Intake Total 1410 / 1410 100 / 100 Output Total 1100 / 1100 Balance 1410 / 710 -1000 / -1000 Lab / Micro Data 09/08/24 05:56 09/08/24 05:56 Labs: Laboratory Results - last 24 hr 09/07/24 16:55: WBC Cancelled, Corrected WBC Cancelled, RBC Cancelled, Hgb Cancelled, Hct Cancelled, MCV Cancelled, MCH Cancelled, MCHC Cancelled, RDW Std Deviation Cancelled, RDW Coeff of Spencer Cancelled, Plt Count Cancelled, MPV Cancelled, Immature Gran % (Auto) Cancelled, Neut % (Auto) Cancelled, Lymph % (Auto) Cancelled, [place] % (Auto) Cancelled, Eos % (Auto) Cancelled, Baso % (Auto) Cancelled, Absolute Neuts (auto) Cancelled, Absolute Lymphs (auto) Cancelled, Total Counted Cancelled, Neutrophils % (Manual) Cancelled, Band Neutrophils % Cancelled, Lymphocytes % (Manual) Cancelled, Monocytes % (Manual) Cancelled, Eosinophils % (Manual) Cancelled, Basophils % (Manual) Cancelled, Metamyelocytes % Cancelled, Myelocytes % Cancelled, Promyelocytes % Cancelled, Blast Cells % Cancelled, Plasma Cell % (Manual) Cancelled, Other Cells % Cancelled, Nucleated RBC % Cancelled, Nucleated RBCs/100 WBC Cancelled, Differential Comment Cancelled, Diff Path Review Cancelled, Hypersegmented Neuts Cancelled, Atypical Lymphocytes Cancelled, Reactive Lymphocytes Cancelled, Smudge Cells Cancelled, Toxic Granulation Cancelled, Toxic Vacuolation Cancelled, Dohle Bodies Cancelled, Truman Rods Cancelled, Platelet Estimate Cancelled, Plt Morphology Comment Cancelled, RBC Morphology Cancelled 09/07/24 16:55: RBC Morphology Cancelled, Polychromasia Cancelled, Hypochromasia Cancelled, Basophilic Stippling Cancelled, Anisocytosis Cancelled, Microcytosis Cancelled, Macrocytosis Cancelled, Spherocytes Cancelled, Sickle Cells Cancelled, Target Cells Cancelled, Tear Drop Cells Cancelled, Ovalocytes Cancelled, Stomatocytes Cancelled, Burris-Jellico Bodies Cancelled, Lore Cells Cancelled, Bite Cells Cancelled, Crenated Cell Cancelled, Acanthocytes (Spur) Cancelled, Rouleaux Cancelled, Schistocytes Cancelled, Sodium Cancelled, Potassium Cancelled, Chloride Cancelled, Carbon Dioxide Cancelled, Anion Gap Cancelled, BUN Cancelled, Creatinine Cancelled, Estim Creat Clear Calc Cancelled, Est GFR (MDRD) Non-Af Cancelled, BUN/Creatinine Ratio Cancelled, Glucose Cancelled, Calcium Cancelled, Total Bilirubin Cancelled, AST Cancelled, ALT Cancelled, Alkaline Phosphatase Cancelled, Total Protein Cancelled, Albumin Cancelled, Globulin Cancelled, Albumin/Globulin Ratio Cancelled, Lipase Cancelled 09/07/24 17:45: WBC 8.4, RBC 3.82 L, Hgb 10.8 L, Hct 31.8 L, MCV 83.2, MCH 28.3, MCHC 34.0, RDW Std Deviation 40.4, RDW Coeff of Spencer 13.3, Plt Count 235, MPV 9.3, Immature Gran % (Auto) 0.500, Neut % (Auto) 77.8 H, Lymph % (Auto) 14.5 L, [place] % (Auto) 5.0, Eos % (Auto) 1.7, Baso % (Auto) 0.5, Absolute Neuts (auto) 6.6, Absolute Lymphs (auto) 1.22, Nucleated RBC % 0, Sodium 136, Potassium 2.5 L*, Chloride 108, Carbon Dioxide 18.5 L, Anion Gap 9, BUN 17, Creatinine 0.92, Estim Creat Clear Calc 76.05, Est GFR (MDRD) Non-Af 74, BUN/Creatinine Ratio 18.5, Glucose 283 H, Calcium 6.5 L*, Phosphorus 2.5 L, Magnesium 1.2 L, Total Bilirubin 0.40, AST 19, ALT 11, Alkaline Phosphatase 85, Total Protein 4.7 L, Albumin 2.6 L, Globulin 2.1 L, Albumin/Globulin Ratio 1.3, Lipase 28, Blood Type O POSITIVE, Antibody Screen NEGATIVE 09/07/24 19:18: Ionized Calcium 1.08 L 09/07/24 23:18: Sodium 134, Potassium 3.2 L, Chloride 100, Carbon Dioxide 21.1, Anion Gap 13, BUN 16, Creatinine 0.89, Estim Creat Clear Calc 77.55, Est GFR (MDRD) Non-Af 78, BUN/Creatinine Ratio 17.5, Glucose 266 H, Calcium 9.2, Procalcitonin 0.14 H 09/07/24 23:50: POC Glucose 250 H 09/08/24 04:26: POC Glucose 205 H 09/08/24 05:51: Ionized Calcium 1.25 09/08/24 05:56: WBC 8.0, RBC 4.42, Hgb 12.2, Hct 36.8 L, MCV 83.3, MCH 27.6, MCHC 33.2, RDW Std Deviation 40.7, RDW Coeff of Spencer 13.5, Plt Count 275, MPV 9.5, Immature Gran % (Auto) 0.400, Neut % (Auto) 64.6, Lymph % (Auto) 25.7, [place] % (Auto) 6.0, Eos % (Auto) 2.4, Baso % (Auto) 0.9, Absolute Neuts (auto) 5.2, Absolute Lymphs (auto) 2.06, Nucleated RBC % 0, Sodium 136, Potassium 3.1 L, Chloride 105, Carbon Dioxide 20.3 L, Anion Gap 11, BUN 15, Creatinine 0.88, Estim Creat Clear Calc 78.43, Est GFR (MDRD) Non-Af 78, BUN/Creatinine Ratio 16.9, Glucose 203 H, Calcium 8.8, Total Bilirubin 0.65, AST 23, ALT 14, Alkaline Phosphatase 105 H, Total Protein 5.9, Albumin 3.1 L, Globulin 2.7, Albumin/Globulin Ratio 1.2, Vitamin D 25-Hydroxy 14.3 L, TSH 2.460, PTH Intact 28 Radiography Diagnostic Testing: Radiology Impression Abdomen/Pelvis CT 09/07/24 19:48 IMPRESSION: Intraluminal urinary bladder air, please correlate clinically with recent catheterization versus emphysematous cystitis. Most of the bowel loops are underdistended due to lack of oral contrast. No inflammatory changes are demonstrated. 2 cm indeterminate right adrenal mass, recommend MRI for further characterization. [facility] Physical Exam Narrative General: Resting comfortably but wakes up and answers questions HEENT: Atraumatic, normocephalic Eyes: Anicteric, normal conjunctiva, extraocular movements grossly intact Neck: Supple Respiratory: No overt wheezes or rhonchi, normal respiratory effort Cardiovascular: Regular rate and rhythm GI: Soft, no specific tenderness, no rebound, guarding, rigidity nondistended Extremities: No significant pitting edema Musculoskeletal: Moving all extremities Neuro: No overt focal neurological deficits Skin: No rashes appreciated Psych: Superficially cooperative Assessment & Plan Assessment/Plan (1) Intractable nausea and vomiting: PLAN: Plan # Intractable nausea and vomiting -CT abdomen pelvis on admission with possible UTI but no inflammatory changes noted around the bowel - Presently resolved - Patient on IV PPI - Does still have stool studies pending if patient has further diarrhea but thus far this seems to improved - Will advance diet and assess tolerability # Chronic lower back and leg pain secondary to chronic compression fractures - Supportive care - PT/OT #Possible UTI - CT abdomen queries emphysematous cystitis - Patient with no urinary symptoms, unclear given her recent hospitalization if she ever had to be catheterized as this would potentially explain imaging findings but has had CT scans over the past couple of months which did show similar findings as well - Awaiting UA, pending UA results if they appear suspicious may need empiric coverage but presently patient afebrile and white blood cell count within normal limits with a left shift and no symptoms - Given her history of ESBL would cover with Zosyn # Chronic combined heart failure -Last echo 05/04/2023 showed EF 15% with stage III diastolic dysfunction -Daily weights -I's and O's -Not in acute exacerbation - Patient received multiple medications for her chronic low back pain in addition to her Coreg, Entresto, spironolactone, Lasix and subsequently became hypotensive but completely asymptomatic - Will give very gentle hydration - Decrease Coreg, holding parameters for Entresto, will hold spironolactone and Lasix - Suspect that this is iatrogenic given lack of new complaints, query if patient has been compliant with medications at home given the effect on her blood pressure here however given her significantly low EF a low blood pressure is to be anticipated - Patient only takes midodrine daily, will schedule this 3 times a day and can decrease as blood pressure tolerates #Type 2 diabetes mellitus -Glucose checks and sliding scale insulin - Patient to start diet so make this ACHS - Also continue 20 units of insulin glargine # History of coronary artery disease -Aspirin, statin, beta-linda #Tobacco use -Advise cessation -Nicotine replacement available if desired # 2 cm indeterminate right adrenal lesion - Will ultimately need further imaging and/for monitoring, this has been noted on scans previous and this can likely be done on an outpatient basis #Hypokalemia -Replace -Repeat in the AM #GERD -Continue PPI #DVT ppx: Lovenox subcu Brenda Posadas MD Time spent in the patient's overall evaluation,decision-making process, review of diagnostic data, adjustment of management, discussion with other providers, nursing nursing and ancillary staff involved in patient's care documentation, 52 Minutes Charges/Coding Visit Charges Inpatient E&M: 23843 [facility] Hosp L3
[2024-09-08 10:28] LABS: Bedside Glucose 249 mg/dL (74-106)
[2024-09-08] MEDS: Glucerna Shake 120 ML LIQUID PO ×2 (13:15→16:18)
[2024-09-08] MEDS: Potassium Chloride Oral Tablet 20 MEQ 40 MEQ PO (13:15)
[2024-09-08 13:17] LABS: Bedside Glucose 211 mg/dL (74-106)
[2024-09-08] MEDS: 0.9% Normal Saline (1000mL) 1,000 ML 50 ML IV (16:00)
[2024-09-08] MEDS: Midodrine HCl 5 MG Tablet PO (16:17)
[2024-09-08 16:36] LABS: Bedside Glucose 418 mg/dL (74-106)
[2024-09-08] MEDS: Piperacil/Tazobactam 4.5 GM in 0.9% Normal Saline (100mL MB+) 100 ML IV (20:12)
[2024-09-08 20:23] LABS: Bedside Glucose 245 mg/dL (74-106)
[2024-09-08] MEDS: Potassium Phosphate 15 MM in 0.9% Normal Saline (250mL Bag) 250 ML 125 MM IV (20:48)
[2024-09-08] MEDS: Albumin Human 25% (100 mL) 25 GM/100 ML BAG IV (21:56)
[2024-09-08] MEDS: Insulin Glargine-YFGN 100 UNIT/ML Pen 20 UNIT SC (22:01)
[2024-09-08] MEDS: Atorvastatin Calcium 80 MG Tablet PO (22:02)
[2024-09-08] MEDS: Nystatin Powder 15gm Bottle 1 APPLIC TOPICAL (22:02)
[2024-09-08] MEDS: Gabapentin 100 MG Capsule 200 MG PO (22:05)
[2024-09-08 22:26] LABS: Bedside Glucose 245 mg/dL (74-106)
[2024-09-09] VITALS (7 sets, daily range): BP systolic 88–117; BP diastolic 57–87; PULSE 73–87; RESP 16; TEMP 36–36.7; O2SAT 92–100; BMI 28.0
[2024-09-09] MEDS: Magnesium Sulfate 4gm/100mL 4 GM/100 ML IV.SOLN. IV (00:13)
[2024-09-09 02:56] LABS: Mucous, Urine 0 SEEN /hpf (<or=2+); Red Blood Cells-Urine 0 SEEN /hpf (0-5); Squamous Epithelial Cells - UA 0 SEEN /hpf (5-10)
[2024-09-09 03:03] LABS: Color, Urine Yellow (Yellow); Glucose, Dipstick 100 mg/dl (Normal); Ketone-Dipstick Negative (Negative); Leukocyte Esterase-Dipstick 500 /ul (Negative); Nitrite-Dipstick Positive (Negative); Occult Blood-Urine 25 /ul (Negative); Protein-Dipstick 30 mg/dl (Negative); Urine Bilirubin Dipstick Negative (Negative); Urine Clarity Clear (Clear); Urine Urobilinogen Normal (Normal)
[2024-09-09 03:27] LABS: Bacteria 1+ /hpf (None Seen); White Blood Cells 0-5 SEEN /hpf (0-5)
[2024-09-09 06:11] LABS: Absolute Lymphocyte Count 2.64 X10^3/uL (0.83-4.51); Absolute Neutrophil Count 7.4 X10^3/uL (2.0-7.7); Basophil# 0.08 X10^3/uL; Basophil% 0.7 % (0-1); Eosinophil# 0.25 X10^3/uL; Eosinophils% 2.3 % (0-5); Hematocrit 32.6 % (37-47); Hemoglobin 10.9 g/dL (12.0-15.0); Lymphocyte # 2.64 X10^3/ul (0.83-4.51); Lymphocyte % 23.9 % (19-41); Mean Corp Hgb Conc 33.4 g/dL (32-36); Mean Corpuscular Hgb 28.5 pg (27.0-32.0); Mean Corpuscular Volume 85.1 fL (81-99); Mean Platelet Vol. 9.6 fl (6.2-12.0); Monocyte# 0.61 X10^3/uL; Monocyte% 5.5 % (0-10); NRBC Flagged by Analyzer 0 % (0-5); Neutrophil % 67.1 % (47-70); Platelet Count 247 K/mm3 (150-450); RBC Distribution Width SD 43.3 fl (35.1-43.9); Red Blood Count 3.83 M/mm3 (4.2-5.4)
[2024-09-09] MEDS: Piperacil/Tazobactam 3.375 GM in 0.9% Normal Saline (50mL MB+) 50 ML IV ×3 (06:27→21:08)
[2024-09-09] MEDS: tiZANidine HCl 2 MG Tablet 4 MG PO ×3 (06:27→21:09)
[2024-09-09] MEDS: Insulin Lispro 100 UNIT/ML INSULN.PEN SC ×4 (06:27→21:09)
[2024-09-09] MEDS: Gabapentin 100 MG Capsule 200 MG PO ×3 (06:27→21:09)
[2024-09-09 06:28] LABS: Phosphorus 3.2 mg/dL (2.7-4.5)
[2024-09-09] MEDS: Nystatin Powder 15gm Bottle 1 APPLIC TOPICAL (06:28)
[2024-09-09 06:29] LABS: Anion Gap 13 (5-15); BUN 15 mg/dL (4-19); BUN/Creat Ratio 14.8 RATIO (10-20); Calcium,Total 8.5 mg/dL (7.6-11.0); Chloride 104 mmol/L (98-108); Creatinine, Serum 0.99 mg/dL (0.70-1.20); EST Glomerular Filtration Rate 68 (>60); Estimated Creatinine Clearance 72.12 ml/min (50-250); Glucose 156 mg/dL (70-99); Magnesium 2.9 mg/dL (1.5-2.2); Potassium 3.7 mmol/L (3.3-5.1); Sodium Level 132 mmol/L (133-145)
[2024-09-09 06:58] LABS: Bedside Glucose 194 mg/dL (74-106)
[2024-09-09] MEDS: Aspirin 81 MG TAB.CHEW PO (08:26)
[2024-09-09] MEDS: Glucerna Shake 120 ML LIQUID PO ×3 (08:26→16:59)
[2024-09-09] MEDS: Midodrine HCl 5 MG Tablet PO ×3 (08:26→16:55)
[2024-09-09] MEDS: Acetaminophen 325 MG Tablet 650 MG PO ×2 (08:30→14:48)
[2024-09-09] MEDS: oxyCODONE 5 MG Tablet PO ×2 (08:30→14:48)
[2024-09-09] MEDS: Escitalopram Oxalate 20 MG Tablet PO (11:30)
[2024-09-09] MEDS: Clopidogrel Bisulfate 75 MG Tablet PO (11:30)
[2024-09-09] MEDS: Enoxaparin 40 MG/0.4 ML Syringe SC (11:30)
[2024-09-09] MEDS: Cholecalciferol (Vit D3) 125 MCG CAPSULE (5,000 UNITS) PO (11:30)
[2024-09-09 11:55] LABS: Bedside Glucose 228 mg/dL (74-106)
[2024-09-09 17:17] LABS: Bedside Glucose 227 mg/dL (74-106)
--- NOTE | 2024-09-09 18:39 | PCM.PN.HOSP ---
Reason for Visit Reason for Visit: Diagnoses Nausea with vomiting, unspecified (09/07/24) Subjective Subjective Patient still has pain in back and legs but reports abdominal pain is much improved, no further nausea or vomiting, feels more awake today and overall better Objective Data Objective Data Vital Signs: Vital Signs Temp Pulse Resp BP Pulse Ox O2 Del Method 96.8 F L 79 16 115/87 H 99 Room Air 09/09/24 14:45 09/09/24 14:45 09/09/24 14:45 09/09/24 14:45 09/09/24 14:45 09/09/24 14:45 Oxygen Delivery Method Room Air Weight: 81.4 kg Body Mass Index (BMI) 28.0 Intake & Output: Intake and Output for Last 24 Hours 09/07/24 09/08/24 09/09/24 23:59 23:59 23:59 Intake Total 1410 / 1410 2265 / 2265 373.33 / 373.33 Output Total 1400 / 1400 600 / 600 Balance 1410 / 710 865 / 865 -226.67 / -226.67 Lab / Micro Data 09/09/24 05:40 09/09/24 05:40 Labs: Laboratory Results - last 24 hr 09/08/24 20:05: POC Glucose 245 H 09/08/24 22:00: POC Glucose 245 H 09/09/24 02:20: Urine Color Yellow, Urine Clarity Clear, Urine pH 6.0, Ur Specific [place] 1.010, Urine Protein 30 H, Urine Glucose (UA) 100 H, Urine Ketones Negative, Urine Occult Blood 25 H, Urine Nitrite Positive H, Urine Bilirubin Negative, Urine Urobilinogen Normal, Ur Leukocyte Esterase 500 H, Urine RBC 0 SEEN, Urine WBC 0-5 SEEN, Ur Squamous Epith Cells 0 SEEN, Urine Bacteria 1+, Urine Mucus 0 SEEN 09/09/24 05:40: WBC 11.0, RBC 3.83 L, Hgb 10.9 L, Hct 32.6 L, MCV 85.1, MCH 28.5, MCHC 33.4, RDW Std Deviation 43.3, RDW Coeff of Spencer 14.0, Plt Count 247, MPV 9.6, Immature Gran % (Auto) 0.500, Neut % (Auto) 67.1, Lymph % (Auto) 23.9, [place] % (Auto) 5.5, Eos % (Auto) 2.3, Baso % (Auto) 0.7, Absolute Neuts (auto) 7.4, Absolute Lymphs (auto) 2.64, Nucleated RBC % 0, Sodium 132 L, Potassium 3.7, Chloride 104, Carbon Dioxide 16.0 L, Anion Gap 13, BUN 15, Creatinine 0.99, Estim Creat Clear Calc 72.12, Est GFR (MDRD) Non-Af 68, BUN/Creatinine Ratio 14.8, Glucose 156 H, Calcium 8.5, Phosphorus 3.2, Magnesium 2.9 H 09/09/24 06:26: POC Glucose 194 H 09/09/24 11:30: POC Glucose 228 H 09/09/24 16:54: POC Glucose 227 H Micro: Microbiology 09/08/24 12:44 Stool Enteric Bacteriology - Final 09/08/24 12:44 Stool Clostridioides difficile (PCR) - Final Physical Exam Narrative General: Alert, oriented, no apparent distress HEENT: Atraumatic, normocephalic Eyes: Anicteric, normal conjunctiva, extraocular movements grossly intact Neck: Supple Respiratory: Clear to auscultation bilaterally, normal respiratory effort Cardiovascular: Regular rate and rhythm GI: Soft, no significant tenderness, no rebound, guarding, rigidity, nondistended Extremities: No significant pitting edema Musculoskeletal: Moving all extremities Neuro: No overt focal neurological deficits Skin: No rashes appreciated Psych: Cooperative Assessment & Plan Assessment/Plan (1) Intractable nausea and vomiting: PLAN: Plan #Possible UTI - CT abdomen queries emphysematous cystitis - Patient with no urinary symptoms, unclear given her recent hospitalization if she ever had to be catheterized as this would potentially explain imaging findings but has had CT scans over the past couple of months which did show similar findings as well - Awaiting UA, pending UA results if they appear suspicious may need empiric coverage but presently patient afebrile and white blood cell count within normal limits with a left shift and no symptoms - Given her history of ESBL would cover with Zosyn -09/09: UA suspicious for UTI, blood pressure and clinically patient does seem to be improving on Zosyn, awaiting culture and sensitivity data for further management # Intractable nausea and vomiting?resolved -CT abdomen pelvis on admission with possible UTI but no inflammatory changes noted around the bowel - Presently resolved - Patient on IV PPI - Does still have stool studies pending if patient has further diarrhea but thus far this seems to improved - Will advance diet and assess tolerability -09/09: This is resolved, may have been due to possible underlying UTI, continue antibiotics # Chronic lower back and leg pain secondary to chronic compression fractures - Supportive care - PT/OT -09/09: Continuing supportive care, distal complaint of back and leg pain, does appear more comfortable today # Chronic combined heart failure -Last echo 05/04/2023 showed EF 15% with stage III diastolic dysfunction -Daily weights -I's and O's -Not in acute exacerbation - Patient received multiple medications for her chronic low back pain in addition to her Coreg, Entresto, spironolactone, Lasix and subsequently became hypotensive but completely asymptomatic - Will give very gentle hydration - Decrease Coreg, holding parameters for Entresto, will hold spironolactone and Lasix - Suspect that this is iatrogenic given lack of new complaints, query if patient has been compliant with medications at home given the effect on her blood pressure here however given her significantly low EF a low blood pressure is to be anticipated - Patient only takes midodrine daily, will schedule this 3 times a day and can decrease as blood pressure tolerates -09/09: Respiratory status stable, blood pressure improving, unclear if this was infection versus her multiple medications or both, continue to monitor, will hold off on adding back home medications at this time but will add back as tolerated starting tomorrow if patient vitally stable Chronic medical problems and/or problems not being actively addressed during today's encounter: #Type 2 diabetes mellitus -Glucose checks and sliding scale insulin - Patient to start diet so make this ACHS - Also continue 20 units of insulin glargine # History of coronary artery disease -Aspirin, statin, beta-linda #Tobacco use -Advise cessation -Nicotine replacement available if desired # 2 cm indeterminate right adrenal lesion - Will ultimately need further imaging and/for monitoring, this has been noted on scans previous and this can likely be done on an outpatient basis #GERD -Continue PPI #DVT ppx: Lovenox subcu Brenda Posadas MD Time spent in the patient's overall evaluation,decision-making process, review of diagnostic data, adjustment of management, discussion with other providers, nursing nursing and ancillary staff involved in patient's care documentation, 40 Minutes Charges/Coding Visit Charges Inpatient E&M: 59912 Subs Hosp L2
[2024-09-09] MEDS: Carvedilol 3.125 MG TABLET PO (21:09)
[2024-09-09] MEDS: Pantoprazole Sodium 40 MG Tablet PO (21:09)
[2024-09-09] MEDS: Insulin Glargine-YFGN 100 UNIT/ML Pen 20 UNIT SC (21:09)
[2024-09-09] MEDS: SACUBITRIL/VALSARTAN 24/26 MG TABLET 1 EACH PO (21:09)
[2024-09-09] MEDS: Atorvastatin Calcium 80 MG Tablet PO (21:09)
[2024-09-09 21:58] LABS: Bedside Glucose 193 mg/dL (74-106)
[2024-09-10 03:13] VITALS: BP 121/78; PULSE 92; RESP 16; TEMP 36.1; O2SAT 95
[2024-09-10 04:54] VITALS: BMI 28.1
[2024-09-10] MEDS: Piperacil/Tazobactam 3.375 GM in 0.9% Normal Saline (50mL MB+) 50 ML IV ×3 (05:11→22:33)
[2024-09-10] MEDS: Gabapentin 100 MG Capsule 200 MG PO ×3 (05:11→22:50)
[2024-09-10] MEDS: tiZANidine HCl 2 MG Tablet 4 MG PO ×3 (05:11→22:33)
[2024-09-10] MEDS: Insulin Lispro 100 UNIT/ML INSULN.PEN SC ×3 (06:35→22:30)
[2024-09-10 06:44] LABS: Absolute Lymphocyte Count 1.84 X10^3/uL (0.83-4.51); Absolute Neutrophil Count 7.2 X10^3/uL (2.0-7.7); Basophil# 0.06 X10^3/uL; Basophil% 0.6 % (0-1); Eosinophil# 0.16 X10^3/uL; Eosinophils% 1.6 % (0-5); Hematocrit 33.4 % (37-47); Lymphocyte # 1.84 X10^3/ul (0.83-4.51); Lymphocyte % 18.5 % (19-41); Mean Corp Hgb Conc 32.9 g/dL (32-36); Mean Corpuscular Hgb 27.9 pg (27.0-32.0); Mean Corpuscular Volume 84.8 fL (81-99); Mean Platelet Vol. 9.9 fl (6.2-12.0); NRBC Flagged by Analyzer 0 % (0-5); Neutrophil # 7.24 X10^3/uL (2.7-7.7); Neutrophil % 72.8 % (47-70); Platelet Count 245 K/mm3 (150-450); RBC Distribution Width CV 14.1 % (11.6-14.6); RBC Distribution Width SD 43.5 fl (35.1-43.9); Red Blood Count 3.94 M/mm3 (4.2-5.4)
[2024-09-10 07:00] VITALS: PULSE 85
[2024-09-10 07:00] LABS: Bedside Glucose 234 mg/dL (74-106)
[2024-09-10 07:01] LABS: Anion Gap 8 (5-15); BUN 18 mg/dL (4-19); BUN/Creat Ratio 18.2 RATIO (10-20); Calcium,Total 8.7 mg/dL (7.6-11.0); Carbon Dioxide 23.5 mmol/L (21.0-32.0); Chloride 105 mmol/L (98-108); EST Glomerular Filtration Rate 68 (>60); Estimated Creatinine Clearance 71.49 ml/min (50-250); Glucose 251 mg/dL (70-99); Potassium 4.4 mmol/L (3.3-5.1); Sodium Level 136 mmol/L (133-145)
[2024-09-10 07:27] VITALS: BP 100/67; PULSE 84; RESP 16; TEMP 36.6; O2SAT 99
[2024-09-10] MEDS: oxyCODONE 5 MG Tablet PO ×3 (07:50→22:49)
[2024-09-10] MEDS: Cholecalciferol (Vit D3) 125 MCG CAPSULE (5,000 UNITS) PO (07:51)
[2024-09-10] MEDS: Midodrine HCl 5 MG Tablet PO ×3 (07:51→16:32)
[2024-09-10] MEDS: Pantoprazole Sodium 40 MG Tablet PO ×2 (07:52→22:33)
[2024-09-10] MEDS: Escitalopram Oxalate 20 MG Tablet PO (07:52)
[2024-09-10] MEDS: SACUBITRIL/VALSARTAN 24/26 MG TABLET 1 EACH PO ×2 (07:52→22:33)
[2024-09-10] MEDS: Aspirin 81 MG TAB.CHEW PO (07:52)
[2024-09-10] MEDS: Clopidogrel Bisulfate 75 MG Tablet PO (07:52)
[2024-09-10] MEDS: Enoxaparin 40 MG/0.4 ML Syringe SC (07:54)
[2024-09-10 12:08] LABS: Bedside Glucose 250 mg/dL (74-106)
[2024-09-10] MEDS: Glucerna Shake 120 ML LIQUID PO ×2 (12:38→16:31)
--- NOTE | 2024-09-10 12:50 | CASEMGMT ---
CHAYITO BARKLEY chart review: Patient was admitted from 08/26-09/02/24 for intractable neuropathic pain, uncontrolled DM. See assessment from 08/27. Patient was denied SNF placement by insurance and was discharged to home with family and follow-up plans in place. Patient returned to [facility] ED on 09/05/24 for NVD and back pain and was discharged to home with recommendations for follow-up with Pain Management and Ortho. Patient returned again on 09/09/24 for NVD and back pain and was admitted for hypokalemia and intractable N/V. CHAYITO BARKLEY in to discuss readmission and needs at discharge. Patient states she was taking her medications as prescribed but could not keep anything down. Patient returned prior to PCP appt on 09/16/24. Patient states she has not scheduled appt with Pain Management or Ortho but plans to make appts when she returns home. Patient states she is ambulating at baseline and declines HHC or outpatient therapy as she has handouts from therapy for exercises to complete at home. Patient inquired about replacing mattress on hospital bed through [facility] [place]. CHAYITO BARKLEY advised patient to reach out to [facility] [place] to see if they will replace mattress and to follow-up with PCP if new prescription is needed. Patient voiced understanding and agreeable to plan. Patient denies needs or help at discharge. Patient denies further questions. CM will continue to follow this patient and plan for a safe discharge.
[2024-09-10 13:20] VITALS: BP 132/83; PULSE 92; RESP 16; TEMP 36.6; O2SAT 100
[2024-09-10 15:00] VITALS: PULSE 80
[2024-09-10 17:12] LABS: Bedside Glucose 149 mg/dL (74-106)
--- NOTE | 2024-09-10 17:31 | PN.HOSP_ITS ---
Reason for Visit Reason for Visit: Diagnoses Nausea with vomiting, unspecified (09/09/24) Subjective Subjective Patient still some intermittent suprapubic discomfort and pain on urination, felt a little nauseous earlier, overall does feel better than she did, no further diarrhea or nausea and vomiting noted at this time Objective Data Objective Data Vital Signs: Vital Signs Temp Pulse Resp BP Pulse Ox O2 Del Method 97.8 F 80 16 132/83 H 100 Room Air 09/10/24 13:20 09/10/24 15:00 09/10/24 13:20 09/10/24 13:20 09/10/24 13:20 09/10/24 13:20 Oxygen Delivery Method Room Air Weight: 81.6 kg Body Mass Index (BMI) 28.1 Intake & Output: Intake and Output for Last 24 Hours 09/08/24 09/09/24 09/10/24 23:59 23:59 23:59 Intake Total 2265 / 2265 423.33 / 423.33 460 / 460 Output Total 1400 / 1400 600 / 600 Balance 865 / 865 -176.67 / -176.67 460 / 460 Lab / Micro Data 09/10/24 05:54 09/10/24 05:54 Labs: Laboratory Results - last 24 hr 09/09/24 21:08: POC Glucose 193 H 09/10/24 05:54: WBC 10.0, RBC 3.94 L, Hgb 11.0 L, Hct 33.4 L, MCV 84.8, MCH 27.9, MCHC 32.9, RDW Std Deviation 43.5, RDW Coeff of Spencer 14.1, Plt Count 245, MPV 9.9, Immature Gran % (Auto) 0.500, Neut % (Auto) 72.8 H, Lymph % (Auto) 18.5 L, [place] % (Auto) 6.0, Eos % (Auto) 1.6, Baso % (Auto) 0.6, Absolute Neuts (auto) 7.2, Absolute Lymphs (auto) 1.84, Nucleated RBC % 0, Sodium 136, Potassium 4.4, Chloride 105, Carbon Dioxide 23.5, Anion Gap 8, BUN 18, Creatinine 1.00, Estim Creat Clear Calc 71.49, Est GFR (MDRD) Non-Af 68, BUN/Creatinine Ratio 18.2, G lucose 251 H, Calcium 8.7 09/10/24 06:34: POC Glucose 234 H 09/10/24 11:44: POC Glucose 250 H 09/10/24 16:30: POC Glucose 149 H Micro: Microbiology 09/08/24 12:44 Stool Enteric Bacteriology - Final 09/08/24 12:44 Stool Clostridioides difficile (PCR) - Final Physical Exam Narrative General: Alert, oriented, no apparent distress HEENT: Atraumatic, normocephalic Eyes: Anicteric, normal conjunctiva, extraocular movements grossly intact Neck: Supple Respiratory: Clear to auscultation bilaterally, normal respiratory effort Cardiovascular: Regular rate and rhythm GI: Soft, no significant tenderness, no rebound, guarding, rigidity, nondistended Extremities: No significant pitting edema Musculoskeletal: Moving all extremities Neuro: No overt focal neurological deficits Skin: No rashes appreciated Psych: Cooperative Assessment & Plan Assessment/Plan (1) Intractable nausea and vomiting: PLAN: Plan #Possible UTI - CT abdomen queries emphysematous cystitis - Patient with no urinary symptoms, unclear given her recent hospitalization if she ever had to be catheterized as this would potentially explain imaging findings but has had CT scans over the past couple of months which did show similar findings as well - Awaiting UA, pending UA results if they appear suspicious may need empiric coverage but presently patient afebrile and white blood cell count within normal limits with a left shift and no symptoms - Given her history of ESBL would cover with Zosyn -09/09: UA suspicious for UTI, blood pressure and clinically patient does seem to be improving on Zosyn, awaiting culture and sensitivity data for further management -09/10: Continue to wait for UTI, still has some intermittent suprapubic pain and dysuria, will be able to tailor antibiotics and decide on infectious disease consult once these results are available Chronic medical problems and/or problems not being actively addressed during today's encounter: # Intractable nausea and vomiting?resolved -CT abdomen pelvis on admission with possible UTI but no inflammatory changes noted around the bowel - Presently resolved - Patient on IV PPI - Does still have stool studies pending if patient has further diarrhea but thus far this seems to improved - Will advance diet and assess tolerability -09/09: This is resolved, may have been due to possible underlying UTI, continue antibiotics # Chronic lower back and leg pain secondary to chronic compression fractures - Supportive care - PT/OT -09/09: Continuing supportive care, distal complaint of back and leg pain, does appear more comfortable today # Chronic combined heart failure -Last echo 05/04/2023 showed EF 15% with stage III diastolic dysfunction -Daily weights -I's and O's -Not in acute exacerbation - Patient received multiple medications for her chronic low back pain in addition to her Coreg, Entresto, spironolactone, Lasix and subsequently became hypotensive but completely asymptomatic - Will give very gentle hydration - Decrease Coreg, holding parameters for Entresto, will hold spironolactone and Lasix - Suspect that this is iatrogenic given lack of new complaints, query if patient has been compliant with medications at home given the effect on her blood pressure here however given her significantly low EF a low blood pressure is to be anticipated - Patient only takes midodrine daily, will schedule this 3 times a day and can decrease as blood pressure tolerates -09/09: Respiratory status stable, blood pressure improving, unclear if this was infection versus her multiple medications or both, continue to monitor, will hold off on adding back home medications at this time but will add back as tolerated starting tomorrow if patient vitally stable #Type 2 diabetes mellitus -Glucose checks and sliding scale insulin - Patient to start diet so make this ACHS - Also continue 20 units of insulin glargine # History of coronary artery disease -Aspirin, statin, beta-linda #Tobacco use -Advise cessation -Nicotine replacement available if desired # 2 cm indeterminate right adrenal lesion - Will ultimately need further imaging and/for monitoring, this has been noted on scans previous and this can likely be done on an outpatient basis #GERD -Continue PPI #DVT ppx: Lovenox subcu Brenda Posadas MD Charges/Coding Visit Charges Inpatient E&M: 58785 Subs Hosp L1
[2024-09-10 22:20] VITALS: BP 152/84; PULSE 86; RESP 16; TEMP 36.9; O2SAT 98
[2024-09-10] MEDS: Insulin Glargine-YFGN 100 UNIT/ML Pen 20 UNIT SC (22:31)
[2024-09-10] MEDS: Carvedilol 3.125 MG TABLET PO (22:32)
[2024-09-10] MEDS: Nystatin Powder 15gm Bottle 1 APPLIC TOPICAL (22:33)
[2024-09-10] MEDS: Atorvastatin Calcium 80 MG Tablet PO (22:33)
[2024-09-10] MEDS: Acetaminophen 325 MG Tablet 650 MG PO (22:49)
[2024-09-10] MEDS: 0.9% Saline Lock 10 ML Syringe IV (22:50)
[2024-09-10] MEDS: MELATONIN 3 MG TABLET PO (22:50)
[2024-09-10 23:37] LABS: Bedside Glucose 241 mg/dL (74-106)
[2024-09-11 03:04] VITALS: BMI 28.2
[2024-09-11 03:15] VITALS: BP 142/77; PULSE 80; RESP 16; TEMP 36.4; O2SAT 97
[2024-09-11] MEDS: Acetaminophen 325 MG Tablet 650 MG PO ×2 (03:19→08:10)
[2024-09-11] MEDS: oxyCODONE 5 MG Tablet PO ×4 (03:19→23:59)
[2024-09-11] MEDS: Ondansetron 4 MG/2 ML Vial IV (03:19)
[2024-09-11] MEDS: tiZANidine HCl 2 MG Tablet 4 MG PO ×3 (06:28→23:28)
[2024-09-11] MEDS: Gabapentin 100 MG Capsule 200 MG PO ×3 (06:28→23:26)
[2024-09-11] MEDS: 0.9% Saline Lock 10 ML Syringe IV ×2 (06:29→13:43)
[2024-09-11] MEDS: Piperacil/Tazobactam 3.375 GM in 0.9% Normal Saline (50mL MB+) 50 ML IV ×3 (06:29→23:32)
[2024-09-11] MEDS: Nystatin Powder 15gm Bottle 1 APPLIC TOPICAL ×3 (06:29→23:30)
[2024-09-11 06:51] LABS: Bedside Glucose 142 mg/dL (74-106)
[2024-09-11 07:00] VITALS: PULSE 81
[2024-09-11 07:42] LABS: Absolute Lymphocyte Count 2.26 X10^3/uL (0.83-4.51); Absolute Neutrophil Count 6.8 X10^3/uL (2.0-7.7); Basophil# 0.06 X10^3/uL; Basophil% 0.6 % (0-1); Eosinophil# 0.19 X10^3/uL; Eosinophils% 1.9 % (0-5); Hematocrit 33.1 % (37-47); Lymphocyte # 2.26 X10^3/ul (0.83-4.51); Lymphocyte % 22.6 % (19-41); Mean Corp Hgb Conc 33.2 g/dL (32-36); Mean Corpuscular Hgb 28.1 pg (27.0-32.0); Mean Corpuscular Volume 84.4 fL (81-99); Mean Platelet Vol. 9.9 fl (6.2-12.0); Monocyte# 0.63 X10^3/uL; Monocyte% 6.3 % (0-10); NRBC Flagged by Analyzer 0 % (0-5); Platelet Count 252 K/mm3 (150-450); RBC Distribution Width SD 43.2 fl (35.1-43.9); Red Blood Count 3.92 M/mm3 (4.2-5.4)
[2024-09-11] MEDS: Glucerna Shake 120 ML LIQUID PO (08:11)
[2024-09-11] MEDS: Pantoprazole Sodium 40 MG Tablet PO ×2 (08:12→23:31)
[2024-09-11] MEDS: Midodrine HCl 5 MG Tablet PO ×3 (08:12→16:15)
[2024-09-11] MEDS: Enoxaparin 40 MG/0.4 ML Syringe SC (08:13)
[2024-09-11] MEDS: Escitalopram Oxalate 20 MG Tablet PO (08:14)
[2024-09-11] MEDS: Clopidogrel Bisulfate 75 MG Tablet PO (08:14)
[2024-09-11] MEDS: Aspirin 81 MG TAB.CHEW PO (08:14)
[2024-09-11] MEDS: Cholecalciferol (Vit D3) 125 MCG CAPSULE (5,000 UNITS) PO (08:16)
[2024-09-11 08:18] VITALS: BP 94/60; PULSE 78; RESP 16; TEMP 36.1; O2SAT 96
[2024-09-11 08:27] LABS: Anion Gap 11 (5-15); BUN 18 mg/dL (4-19); BUN/Creat Ratio 21.7 RATIO (10-20); Carbon Dioxide 21.7 mmol/L (21.0-32.0); Chloride 104 mmol/L (98-108); Creatinine, Serum 0.84 mg/dL (0.70-1.20); EST Glomerular Filtration Rate 84 (>60); Glucose 171 mg/dL (70-99); Sodium Level 136 mmol/L (133-145)
[2024-09-11] MEDS: Insulin Lispro 100 UNIT/ML INSULN.PEN SC ×2 (11:56→23:22)
[2024-09-11 12:16] LABS: Bedside Glucose 338 mg/dL (74-106)
--- NOTE | 2024-09-11 13:00 | RAD_ITS ---
EXAM: XR Abdomen, 1 View CLINICAL INDICATION: ABD PAIN TECHNIQUE: Frontal supine view of the abdomen/pelvis. COMPARISON: No relevant prior studies available. FINDINGS: GASTROINTESTINAL TRACT: Fecal retention in the colon consistent with constipation. No dilation. BONES/JOINTS: Unremarkable. No acute fracture. RAD/Abdomen Single View (Portable) IMPRESSION: Fecal retention in the colon consistent with constipation. Reading [facility]
[2024-09-11 13:08] LABS: Vitamin D 1,25-Dihydroxy 29.9 pg/mL (24.8-81.5)
[2024-09-11] MEDS: Lidocaine 5% Patch 1 PATCH TOPICAL (13:43)
[2024-09-11 14:14] VITALS: BP 106/67; PULSE 80; RESP 16; TEMP 36.2; O2SAT 99
[2024-09-11 15:00] VITALS: PULSE 78
--- NOTE | 2024-09-11 16:06 | PCM.PN.HOSP ---
Reason for Visit Reason for Visit: Diagnoses Nausea with vomiting, unspecified (09/09/24) Subjective Subjective Patient reports some increased back and abdominal pain today with increased leg pain, has not vomited, still finds some discomfort with urination Objective Data Objective Data Vital Signs: Vital Signs Temp Pulse Resp BP Pulse Ox O2 Del Method 97.2 F L 80 16 106/67 99 Room Air 09/11/24 14:14 09/11/24 14:14 09/11/24 14:14 09/11/24 14:14 09/11/24 14:14 09/11/24 14:14 Oxygen Delivery Method Room Air Weight: 81.8 kg Body Mass Index (BMI) 28.2 Intake & Output: Intake and Output for Last 24 Hours 09/09/24 09/10/24 09/11/24 23:59 23:59 23:59 Intake Total 423.33 / 423.33 1410 / 1410 1000 / 1000 Output Total 600 / 600 Balance -176.67 / -176.67 1410 / 1410 1000 / 1000 Lab / Micro Data 09/11/24 07:02 09/11/24 07:02 Labs: Laboratory Results - last 24 hr 09/08/24 05:56: Vit D 1,25-Dihydroxy 29.9 09/10/24 16:30: POC Glucose 149 H 09/10/24 22:30: POC Glucose 241 H 09/11/24 06:27: POC Glucose 142 H 09/11/24 07:02: WBC 10.0, RBC 3.92 L, Hgb 11.0 L, Hct 33.1 L, MCV 84.4, MCH 28.1, MCHC 33.2, RDW Std Deviation 43.2, RDW Coeff of [place] 14.0, Plt Count 252, MPV 9.9, Immature Gran % (Auto) 0.600, Neut % (Auto) 68.0, Lymph % (Auto) 22.6, [place] % (Auto) 6.3, Eos % (Auto) 1.9, Baso % (Auto) 0.6, Absolute Neuts (auto) 6.8, Absolute Lymphs (auto) 2.26, Nucleated RBC % 0, Sodium 136, Potassium 4.0, Chloride 104, Carbon Dioxide 21.7, Anion Gap 11, BUN 18, Creatinine 0.84, Estim Creat Clear Calc 85.20, Est GFR (MDRD) Non-Af 84, BUN/Creatinine Ratio 21.7 H, Glucose 171 H, Calcium 9.0 09/11/24 11:54: POC Glucose 338 H Micro: Microbiology 09/09/24 02:20 Urine, Clean Catch Urine Culture - Final Presumptive E. coli 09/08/24 21:30 Blood Culture (Wb) - Left Hand Blood Culture - Preliminary No growth in 48 hours. 09/08/24 21:25 Blood Culture (Wb) - Right Hand Blood Culture - Preliminary No growth in 48 hours. 09/08/24 12:44 Stool Enteric Bacteriology - Final 09/08/24 12:44 Stool Clostridioides difficile (PCR) - Final Radiography Diagnostic Testing: Radiology Impression KUB X-Ray 09/11/24 13:00 IMPRESSION: Fecal retention in the colon consistent with constipation. Reading Location: [facility] Physical Exam Narrative General: Alert, oriented, no apparent distress HEENT: Atraumatic, normocephalic Eyes: Anicteric, normal conjunctiva, extraocular movements grossly intact Neck: Supple Respiratory: normal respiratory effort Cardiovascular: Regular rate and rhythm GI: Soft, little bit tender to palpation somewhat on the right to central side without any rebound, guarding, rigidity Extremities: No significant pitting edema Musculoskeletal: Moving all extremities Neuro: No overt focal neurological deficits Skin: No rashes appreciated Psych: Cooperative Assessment & Plan Assessment/Plan (1) Intractable nausea and vomiting: PLAN: Plan #Possible UTI - CT abdomen queries emphysematous cystitis - Patient with no urinary symptoms, unclear given her recent hospitalization if she ever had to be catheterized as this would potentially explain imaging findings but has had CT scans over the past couple of months which did show similar findings as well - Awaiting UA, pending UA results if they appear suspicious may need empiric coverage but presently patient afebrile and white blood cell count within normal limits with a left shift and no symptoms - Given her history of ESBL would cover with Zosyn -09/09: UA suspicious for UTI, blood pressure and clinically patient does seem to be improving on Zosyn, awaiting culture and sensitivity data for further management -09/10: Continue to wait for UTI, still has some intermittent suprapubic pain and dysuria, will be able to tailor antibiotics and decide on infectious disease consult once these results are available -09/11: Urine culture grew less than thousand colonies of E. coli however looking back it appears that antibiotics were started before urine was collected. 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 Will consult infectious disease for further recommendations # Vague abdominal discomfort - Patient has some vague discomfort more on the right side without any alarming symptoms, abdomen soft without rebound, guarding, rigidity, KUB obtained which shows fecal retention consistent with constipation, will schedule bowel regimen Chronic medical problems and/or problems not being actively addressed during today's encounter: # Intractable nausea and vomiting?resolved -CT abdomen pelvis on admission with possible UTI but no inflammatory changes noted around the bowel - Presently resolved - Patient on IV PPI - Does still have stool studies pending if patient has further diarrhea but thus far this seems to improved - Will advance diet and assess tolerability -09/09: This is resolved, may have been due to possible underlying UTI, continue antibiotics # Chronic lower back and leg pain secondary to chronic compression fractures - Supportive care - PT/OT -09/09: Continuing supportive care, distal complaint of back and leg pain, does appear more comfortable today # Chronic combined heart failure -Last echo 05/04/2023 showed EF 15% with stage III diastolic dysfunction -Daily weights -I's and O's -Not in acute exacerbation - Patient received multiple medications for her chronic low back pain in addition to her Coreg, Entresto, spironolactone, Lasix and subsequently became hypotensive but completely asymptomatic - Will give very gentle hydration - Decrease Coreg, holding parameters for Entresto, will hold spironolactone and Lasix - Suspect that this is iatrogenic given lack of new complaints, query if patient has been compliant with medications at home given the effect on her blood pressure here however given her significantly low EF a low blood pressure is to be anticipated - Patient only takes midodrine daily, will schedule this 3 times a day and can decrease as blood pressure tolerates -09/09: Respiratory status stable, blood pressure improving, unclear if this was infection versus her multiple medications or both, continue to monitor, will hold off on adding back home medications at this time but will add back as tolerated starting tomorrow if patient vitally stable #Type 2 diabetes mellitus -Glucose checks and sliding scale insulin - Patient to start diet so make this ACHS - Also continue 20 units of insulin glargine # History of coronary artery disease -Aspirin, statin, beta-linda #Tobacco use -Advise cessation -Nicotine replacement available if desired # 2 cm indeterminate right adrenal lesion - Will ultimately need further imaging and/for monitoring, this has been noted on scans previous and this can likely be done on an outpatient basis #GERD -Continue PPI #DVT ppx: Lovenox subcu Brenda Posadas MD Time spent in the patient's overall evaluation,decision-making process, review of diagnostic data, adjustment of management, discussion with other providers, nursing nursing and ancillary staff involved in patient's care documentation, 37 Minutes Charges/Coding Visit Charges Inpatient E&M: 59832 Subs Hosp L2
[2024-09-11 16:35] LABS: Bedside Glucose 114 mg/dL (74-106)
[2024-09-11 20:10] VITALS: BP 108/65; PULSE 88; RESP 16; TEMP 36.6; O2SAT 95
[2024-09-11] MEDS: Insulin Glargine-YFGN 100 UNIT/ML Pen 20 UNIT SC (23:21)
[2024-09-11] MEDS: Atorvastatin Calcium 80 MG Tablet PO (23:26)
[2024-09-11] MEDS: Carvedilol 3.125 MG TABLET PO (23:28)
[2024-09-11] MEDS: SACUBITRIL/VALSARTAN 24/26 MG TABLET 1 EACH PO (23:29)
[2024-09-12] VITALS (7 sets, daily range): BP systolic 100–155; BP diastolic 49–91; PULSE 79–86; RESP 14–18; TEMP 36.2–36.8; O2SAT 96–98; BMI 29.0
[2024-09-12 01:03] LABS: Bedside Glucose 331 mg/dL (74-106)
[2024-09-12] MEDS: oxyCODONE 5 MG Tablet PO ×5 (04:00→22:18)
[2024-09-12] MEDS: Gabapentin 100 MG Capsule 200 MG PO ×3 (06:44→22:18)
[2024-09-12] MEDS: Insulin Lispro 100 UNIT/ML INSULN.PEN SC ×4 (06:45→22:19)
[2024-09-12] MEDS: Piperacil/Tazobactam 3.375 GM in 0.9% Normal Saline (50mL MB+) 50 ML IV ×2 (06:46→14:30)
[2024-09-12] MEDS: Ondansetron 4 MG/2 ML Vial IV (06:49)
[2024-09-12] MEDS: tiZANidine HCl 2 MG Tablet 4 MG PO ×3 (06:49→22:18)
[2024-09-12] MEDS: 0.9% Saline Lock 10 ML Syringe IV ×2 (06:50→14:30)
[2024-09-12 07:18] LABS: Bedside Glucose 210 mg/dL (74-106)
[2024-09-12 08:10] LABS: Absolute Lymphocyte Count 2.33 X10^3/uL (0.83-4.51); Absolute Neutrophil Count 6.8 X10^3/uL (2.0-7.7); Basophil# 0.08 X10^3/uL; Basophil% 0.8 % (0-1); Eosinophil# 0.18 X10^3/uL; Eosinophils% 1.8 % (0-5); Hematocrit 33.9 % (37-47); Hemoglobin 10.8 g/dL (12.0-15.0); Lymphocyte # 2.33 X10^3/ul (0.83-4.51); Lymphocyte % 23.2 % (19-41); Mean Corp Hgb Conc 31.9 g/dL (32-36); Mean Corpuscular Hgb 28.3 pg (27.0-32.0); Mean Corpuscular Volume 88.7 fL (81-99); Mean Platelet Vol. 10.2 fl (6.2-12.0); Monocyte# 0.58 X10^3/uL; Monocyte% 5.8 % (0-10); NRBC Flagged by Analyzer 0 % (0-5); Neutrophil % 67.6 % (47-70); POSITIVE COUNT YES; RBC Distribution Width CV 14.2 % (11.6-14.6); RBC Distribution Width SD 45.8 fl (35.1-43.9); Red Blood Count 3.82 M/mm3 (4.2-5.4); White Blood Count 10.1 K/mm3 (4.4-11.0)
[2024-09-12] MEDS: Midodrine HCl 5 MG Tablet PO ×3 (08:29→18:53)
[2024-09-12] MEDS: Aspirin 81 MG TAB.CHEW PO (08:29)
[2024-09-12] MEDS: Lidocaine 5% Patch 1 PATCH TOPICAL (08:30)
[2024-09-12] MEDS: Enoxaparin 40 MG/0.4 ML Syringe SC (08:30)
[2024-09-12] MEDS: Escitalopram Oxalate 20 MG Tablet PO (08:30)
[2024-09-12] MEDS: Pantoprazole Sodium 40 MG Tablet PO ×2 (08:31→22:18)
[2024-09-12] MEDS: Carvedilol 3.125 MG TABLET PO ×2 (08:32→22:19)
[2024-09-12 08:37] LABS: Anion Gap 11 (5-15); BUN 21 mg/dL (4-19); Carbon Dioxide 17.3 mmol/L (21.0-32.0); Chloride 105 mmol/L (98-108); Creatinine, Serum 0.86 mg/dL (0.70-1.20); EST Glomerular Filtration Rate 81 (>60); Estimated Creatinine Clearance 84.22 ml/min (50-250); Glucose 213 mg/dL (70-99); Potassium 4.7 mmol/L (3.3-5.1); Sodium Level 134 mmol/L (133-145)
[2024-09-12 09:05] LABS: Differential Indicated SCAN CRITERIA MET; Platelet Estimate ADEQUATE (ADEQ)
[2024-09-12] MEDS: Cholecalciferol (Vit D3) 125 MCG CAPSULE (5,000 UNITS) PO (10:18)
[2024-09-12] MEDS: Senna/Docusate Sodium 1 Tablet 2 TABLET PO (10:18)
[2024-09-12] MEDS: Clopidogrel Bisulfate 75 MG Tablet PO (10:18)
[2024-09-12] MEDS: Acetaminophen 325 MG Tablet 650 MG PO ×3 (10:21→22:18)
[2024-09-12] MEDS: proCHLORPERazine 10 MG/2 ML Vial 5 MG IV (12:21)
[2024-09-12] MEDS: Furosemide 20 MG Tablet PO (12:23)
[2024-09-12 13:56] LABS: Bedside Glucose 195 mg/dL (74-106)
[2024-09-12] MEDS: Nystatin Powder 15gm Bottle 1 APPLIC TOPICAL ×2 (14:28→22:19)
--- NOTE | 2024-09-12 14:53 | PCM.CONS.GEN ---
Assessment & Plan Assessment/Plan (1) Emphysematous cystitis: PLAN: H/o esbl uti. Will repeat ucx and UA. Will change zosyn to ena. May need urology eval. Will follow, thank you, d/w Dr. Posadas. (2) Intractable nausea and vomiting: HPI Consult Data Date of Consult: 09/12/24 HPI Narrative Reason for Consultation: cystitis HPI Narrative: TRENTON DENTON, is a 54 F with h/o DM, htn, PAD, presented 09/07 with 5 days n/v, abd pain, and RLE pain. CT showed possible emphysematous cystitis; no recent catheterizations per patient. In evening of 09/08, started on zosyn. UA/UCx checked 0200 on 09/09. Remains on zosyn, continues to have pain. Reports crying in bed due to ongoing pain. No dysuria, no fever. Full ROS performed and neg except as noted above. [facility] Medical History L5 vertebral fracture ESBL (extended spectrum beta-lactamase) producing bacteria infection Generalized weakness Candidiasis of breast Colitis Debility PTSD (post-traumatic stress disorder) Closed compression fracture of L3 vertebra Hypokalemia Colitis BiPAP (biphasic positive airway pressure) dependence Coronary artery disease On home oxygen therapy Rheumatoid arthritis Sleep apnea Smoker DVT (deep venous thrombosis) Seizures Amputation toe Psychiatric disorder Ischemic cardiomyopathy Diabetes type 2, uncontrolled Essential hypertension Substance abuse Alcohol abuse Depression Osteoporosis GERD (gastroesophageal reflux disease) Pulmonary embolism Myocardial infarct Pericardial effusion Hypoxemia Acute dyspnea Aftercare following surgery of the circulatory system Hx of fracture of humerus Toe amputee Hyperlipidemia CHF (congestive heart failure) CAD (coronary artery disease), [place] coronary artery Home Medications ?Medication ?Instructions ?Recorded ?Last Taken ?Type aspirin 81 mg capsule 81 mg PO DAILY heart health 08/10/22 09/06/24 History clopidogrel 75 mg tablet 75 mg PO DAILY anti platelet #30 02/03/23 09/06/24 Rx tabs pantoprazole 40 mg tablet,delayed 40 mg PO DAILY reflux 04/18/23 09/06/24 History release sacubitril 24 mg-valsartan 26 mg 1 tab PO BID . 30 days #60 tabs 05/07/23 09/06/24 Rx tablet (Entresto) atorvastatin 80 mg tablet 80 mg PO QHS cholesterol 12/29/23 09/06/24 History gabapentin 300 mg capsule 300 mg PO TID nerve pain 12/29/23 09/06/24 History insulin lispro 100 unit/mL 1 sliding scale dose subcut TIDCM 12/29/23 09/06/24 History subcutaneous half-unit pen glucose DIC 2%/RINKU 6%/LIDOC 2% IN 1 - 2 pump subdermal Q6H PRN FOR 02/14/24 09/06/24 History saltsable FEET cholecalciferol (vitamin D3) 1,250 1,250 mcg PO WE supplement 02/14/24 09/03/24 History mcg (50,000 unit) tablet spironolactone 25 mg tablet 25 mg PO DAILY water pill 30 days 02/17/24 09/06/24 Rx #0 tabs carvedilol 3.125 mg tablet 6.25 mg (2 x 3.125 mg) PO BID 02/19/24 09/06/24 Rx blood pressure 30 days #0 tabs ergocalciferol (vitamin D2) 1,250 1,250 mcg PO We@1000 #0 caps 02/19/24 09/03/24 Rx mcg (50,000 unit) capsule (Vitamin D2) insulin glargine 100 unit/mL (3 20 unit (0.2 mL) subcut QPM 30 02/19/24 09/06/24 Rx mL) subcutaneous pen (Lantus days #0 mL Solostar U-100 Insulin) escitalopram oxalate 20 mg tablet 20 mg PO DAILY depression 06/29/24 09/06/24 History furosemide 20 mg tablet 20 mg PO DAILY water pill 06/29/24 09/06/24 History midodrine 2.5 mg tablet 2.5 mg PO DAILY blood pressure 06/29/24 09/06/24 History polyethylene glycol 3350 17 17 g PO BID PRN constipation 06/29/24 Unknown History gram/dose oral powder (Miralax) sennosides 8.6 mg-docusate sodium 2 tab PO BID PRN constipation 06/29/24 Unknown History 50 mg tablet (Stimulant Laxative Plus) tizanidine 4 mg tablet 4 mg PO 3XD spasm 06/29/24 09/06/24 History acetaminophen 500 mg tablet 1,000 mg (2 x 500 mg) PO Q8 #0 tabs 09/02/24 09/06/24 Rx ondansetron 4 mg disintegrating 4 mg PO Q8H PRN PRN Nausea #10 tabs 09/05/24 Unknown Rx tablet Allergy/AdvReac Type Severity Reaction Status Date / Time latex Allergy Hives Verified 09/07/24 22:29 Family History Mother Thyroid disorder Diabetes Hypertension Grandmother Diabetes Uncle Diabetes Aunt Diabetes Other Heart disease Surgical History History of cholecystectomy History of appendectomy History of cholecystectomy Social History household members: spouse and children housing: house Smoking Status: Current every day smoker tobacco type: cigarettes Smoking packs per day: 0.5 Smoking cigarettes per day: 10.0 alcohol intake: never substance use type: marijuana what type of physical activity do you participate in: none do you feel safe at home: Yes Physical Exam Const alert, oriented x3 and no apparent distress Constitutional Narrative: uncomfortable HEENT normocephalic and head/scalp atraumatic Eyes PERRL and EOMs intact bilaterally Neck supple and No nodes Resp normal air movement and clear to auscultation bilaterally Cardio regular rate and regular rhythm GI soft to palpation, non-tender and non-distended Extremity General Extremity: Negative for edema Skin no rashes or lesions noted Neuro CN's II-XII intact bilaterally Lab / Micro Data Attestation: I reviewed the patient's lab results. 09/12/24 07:36 09/12/24 07:36 Labs: Laboratory Results - last 24 hr 09/11/24 16:14: POC Glucose 114 H 09/11/24 23:21: POC Glucose 331 H 09/12/24 06:43: POC Glucose 210 H 09/12/24 07:36: WBC 10.1, RBC 3.82 L, Hgb 10.8 L, Hct 33.9 L, MCV 88.7 D, MCH 28.3, MCHC 31.9 L, RDW Std Deviation 45.8 H, RDW Coeff of [place] 14.2, Plt Count , MPV 10.2, Immature Gran % (Auto) 0.800, Neut % (Auto) 67.6, Lymph % (Auto) 23.2, [place] % (Auto) 5.8, Eos % (Auto) 1.8, Baso % (Auto) 0.8, Absolute Neuts (auto) 6.8, Absolute Lymphs (auto) 2.33, Nucleated RBC % 0, Platelet Estimate ADEQUATE, Sodium 134, Potassium 4.7, Chloride 105, Carbon Dioxide 17.3 L, Anion Gap 11, BUN 21 H, Creatinine 0.86, Estim Creat Clear Calc 84.22, Est GFR (MDRD) Non-Af 81, BUN/Creatinine Ratio 24.0 H, Glucose 213 H, Calcium 9.0 09/12/24 12:20: POC Glucose 195 H
--- NOTE | 2024-09-12 16:15 | PN.HOSP_ITS ---
Reason for Visit Reason for Visit: Diagnoses Other cystitis without hematuria (09/09/24) Nausea with vomiting, unspecified (09/09/24) Subjective Subjective Patient still having some abdominal discomfort that she reports waxes and wanes, has not had a bowel movement today, not presently nauseous however, still does have diarrhea pain when she urinates, patient changed to meropenem Objective Data Objective Data Vital Signs: Vital Signs Temp Pulse Resp BP Pulse Ox O2 Del Method 97.2 F L 84 14 106/62 97 Room Air 09/12/24 14:25 09/12/24 14:25 09/12/24 14:25 09/12/24 14:25 09/12/24 14:09/12/24 14:40 Oxygen Delivery Method Room Air Weight: 83.9 kg Body Mass Index (BMI) 29.0 Intake & Output: Intake and Output for Last 24 Hours 09/10/24 09/11/24 09/12/24 23:59 23:59 23:59 Intake Total 1410 / 1410 1650 / 2050 1340 / 1340 Output Total 1100 / 1100 Balance 1410 / 1410 1650 / 1250 240 / 240 Lab / Micro Data 09/12/24 07:36 09/12/24 07:36 Labs: Laboratory Results - last 24 hr 09/11/24 16:14: POC Glucose 114 H 09/11/24 23:21: POC Glucose 331 H 09/12/24 06:43: POC Glucose 210 H 09/12/24 07:36: WBC 10.1, RBC 3.82 L, Hgb 10.8 L, Hct 33.9 L, MCV 88.7 D, MCH 28.3, MCHC 31.9 L, RDW Std Deviation 45.8 H, RDW Coeff of [place] 14.2, Plt Count , MPV 10.2, Immature Gran % (Auto) 0.800, Neut % (Auto) 67.6, Lymph % (Auto) 23.2, [place] % (Auto) 5.8, Eos % (Auto) 1.8, Baso % (Auto) 0.8, Absolute Neuts (auto) 6.8, Absolute Lymphs (auto) 2.33, Nucleated RBC % 0, Platelet Estimate ADEQUATE, Sodium 134, Potassium 4.7, Chloride 105, Carbon Dioxide 17.3 L, Anion Gap 11, B UN 21 H, Creatinine 0.86, Estim Creat Clear Calc 84.22, Est GFR (MDRD) Non-Af 81, BUN/Creatinine Ratio 24.0 H, Glucose 213 H, Calcium 9.0 09/12/24 12:20: POC Glucose 195 H Micro: Microbiology 09/09/24 02:20 Urine, Clean Catch Urine Culture - Final Presumptive E. coli 09/08/24 21:30 Blood Culture (Wb) - Left Hand Blood Culture - Preliminary No growth in 48 hours. 09/08/24 21:25 Blood Culture (Wb) - Right Hand Blood Culture - Preliminary No growth in 48 hours. 09/08/24 12:44 Stool Enteric Bacteriology - Final 09/08/24 12:44 Stool Clostridioides difficile (PCR) - Final Physical Exam Narrative General: Alert, oriented, no apparent distress HEENT: Atraumatic, normocephalic Eyes: Anicteric, normal conjunctiva, extraocular movements grossly intact Neck: Supple Respiratory: normal respiratory effort Cardiovascular: Regular rate and rhythm GI: Soft, does have tenderness mostly mid to right Extremities: No significant pitting edema but hands and feet slightly puffy Musculoskeletal: Moving all extremities Neuro: No overt focal neurological deficits Skin: No rashes appreciated Psych: Cooperative Assessment & Plan Assessment/Plan (1) Intractable nausea and vomiting: PLAN: Plan #Possible UTI - CT abdomen queries emphysematous cystitis - Patient with no urinary symptoms, unclear given her recent hospitalization if she ever had to be catheterized as this would potentially explain imaging findings but has had CT scans over the past couple of months which did show similar findings as well - Awaiting UA, pending UA results if they appear suspicious may need empiric coverage but presently patient afebrile and white blood cell count within normal limits with a left shift and no symptoms - Given her history of ESBL would cover with Zosyn -09/09: UA suspicious for UTI, blood pressure and clinically patient does seem to be improving on Zosyn, awaiting culture and sensitivity data for further management -09/10: Continue to wait for UTI, still has some intermittent suprapubic pain and dysuria, will be able to tailor antibiotics and decide on infectious disease consult once these results are available -09/11: Urine culture grew less than thousand colonies of E. coli however looking back it appears that antibiotics were started before urine was collected. 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 Will consult infectious disease for further recommendations -09/12: Patient still having some of the pain towards the right side but is worse with urination, Dr. Mcneil with infectious disease evaluated and is repeating urine culture and UA for emphysematous cystitis, Zosyn changed to meropenem and urology evaluation recommended. Will continue patient on IV antibiotics as recommended, spoke with ID and is recommended that patient be evaluated by urology before discharge, coverage resumes this coming Sunday, discussed with patient and she is agreeable # Chronic combined heart failure -Last echo 05/04/2023 showed EF 15% with stage III diastolic dysfunction -Daily weights -I's and O's -Not in acute exacerbation - Patient received multiple medications for her chronic low back pain in addition to her Coreg, Entresto, spironolactone, Lasix and subsequently became hypotensive but completely asymptomatic - Will give very gentle hydration - Decrease Coreg, holding parameters for Entresto, will hold spironolactone and Lasix - Suspect that this is iatrogenic given lack of new complaints, query if patient has been compliant with medications at home given the effect on her blood pressure here however given her significantly low EF a low blood pressure is to be anticipated - Patient only takes midodrine daily, will schedule this 3 times a day and can decrease as blood pressure tolerates -09/09: Respiratory status stable, blood pressure improving, unclear if this was infection versus her multiple medications or both, continue to monitor, will hold off on adding back home medications at this time but will add back as tolerated starting tomorrow if patient vitally stable -09/12: Patient's blood pressures improved and she does feel a little bit edematous, some slight edema in hands and feet, will resume home Lasix Chronic medical problems and/or problems not being actively addressed during today's encounter: # Intractable nausea and vomiting?resolved -CT abdomen pelvis on admission with possible UTI but no inflammatory changes noted around the bowel - Presently resolved - Patient on IV PPI - Does still have stool studies pending if patient has further diarrhea but thus far this seems to improved - Will advance diet and assess tolerability -09/09: This is resolved, may have been due to possible underlying UTI, continue antibiotics # Chronic lower back and leg pain secondary to chronic compression fractures - Supportive care - PT/OT -09/09: Continuing supportive care, distal complaint of back and leg pain, does appear more comfortable today #Type 2 diabetes mellitus -Glucose checks and sliding scale insulin - Patient to start diet so make this ACHS - Also continue 20 units of insulin glargine # History of coronary artery disease -Aspirin, statin, beta-linda #Tobacco use -Advise cessation -Nicotine replacement available if desired # 2 cm indeterminate right adrenal lesion - Will ultimately need further imaging and/for monitoring, this has been noted on scans previous and this can likely be done on an outpatient basis #GERD -Continue PPI #DVT ppx: Lovenox subcu Brenda Posadas MD Time spent in the patient's overall evaluation,decision-making process, review of diagnostic data, adjustment of management, discussion with other providers, nursing nursing and ancillary staff involved in patient's care documentation, 38 Minutes Charges/Coding Visit Charges Inpatient E&M: 75524 Subs Hosp L2
[2024-09-12] MEDS: Meropenem 1 GM in 0.9% Normal Saline (100mL MB+) 100 ML IV ×2 (16:56→22:20)
[2024-09-12 17:05] LABS: Bacteria 0 SEEN /hpf (None Seen); Mucous, Urine 0 SEEN /hpf (<or=2+); Red Blood Cells-Urine 0 SEEN /hpf (0-5); White Blood Cells 0 SEEN /hpf (0-5)
[2024-09-12 17:12] LABS: Color, Urine Straw (Yellow); Glucose, Dipstick 1000 mg/dl (Normal); Ketone-Dipstick Negative (Negative); Leukocyte Esterase-Dipstick Negative /ul (Negative); Nitrite-Dipstick Negative (Negative); Occult Blood-Urine Negative /ul (Negative); Protein-Dipstick 15 mg/dl (Negative); Urine Bilirubin Dipstick Negative (Negative); Urine Clarity Clear (Clear); Urine Urobilinogen Normal (Normal)
[2024-09-12 17:32] LABS: Bedside Glucose 352 mg/dL (74-106)
[2024-09-12 18:34] LABS: Squamous Epithelial Cells - UA 0-5 SEEN /hpf (5-10); Yeast-Urine 1+ /hpf (None Seen)
[2024-09-12] MEDS: Insulin Glargine-YFGN 100 UNIT/ML Pen 20 UNIT SC (22:17)
[2024-09-12] MEDS: Atorvastatin Calcium 80 MG Tablet PO (22:18)
[2024-09-12] MEDS: SACUBITRIL/VALSARTAN 24/26 MG TABLET 1 EACH PO (22:18)
[2024-09-12 23:54] LABS: Bedside Glucose 271 mg/dL (74-106)
[2024-09-13 02:08] VITALS: BMI 29.3
[2024-09-13 03:00] VITALS: BP 129/78; PULSE 82; RESP 14; TEMP 36.4; O2SAT 97
[2024-09-13] MEDS: oxyCODONE 5 MG Tablet PO ×5 (03:04→23:34)
[2024-09-13] MEDS: Acetaminophen 325 MG Tablet 650 MG PO ×2 (03:04→23:34)
[2024-09-13] MEDS: Meropenem 1 GM in 0.9% Normal Saline (100mL MB+) 100 ML IV ×3 (06:02→22:13)
[2024-09-13 07:20] LABS: Bedside Glucose 214 mg/dL (74-106)
[2024-09-13 07:24] LABS: Absolute Lymphocyte Count 1.69 X10^3/uL (0.83-4.51); Absolute Neutrophil Count 8.9 X10^3/uL (2.0-7.7); Basophil% 0.9 % (0-1); Eosinophil# 0.19 X10^3/uL; Eosinophils% 1.6 % (0-5); Hematocrit 35.1 % (37-47); Hemoglobin 11.3 g/dL (12.0-15.0); Lymphocyte # 1.69 X10^3/ul (0.83-4.51); Lymphocyte % 14.4 % (19-41); Mean Corp Hgb Conc 32.2 g/dL (32-36); Mean Corpuscular Hgb 28.2 pg (27.0-32.0); Mean Corpuscular Volume 87.5 fL (81-99); Mean Platelet Vol. 10.1 fl (6.2-12.0); Monocyte# 0.81 X10^3/uL; Monocyte% 6.9 % (0-10); NRBC Flagged by Analyzer 0 % (0-5); Neutrophil # 8.86 X10^3/uL (2.7-7.7); Neutrophil % 75.6 % (47-70); Platelet Count 232 K/mm3 (150-450); RBC Distribution Width SD 44.9 fl (35.1-43.9); Red Blood Count 4.01 M/mm3 (4.2-5.4); White Blood Count 11.7 K/mm3 (4.4-11.0)
[2024-09-13 07:47] LABS: Anion Gap 11 (5-15); BUN 18 mg/dL (4-19); BUN/Creat Ratio 17.6 RATIO (10-20); Calcium,Total 9.1 mg/dL (7.6-11.0); Carbon Dioxide 21.1 mmol/L (21.0-32.0); Chloride 104 mmol/L (98-108); Creatinine, Serum 1.02 mg/dL (0.70-1.20); EST Glomerular Filtration Rate 66 (>60); Estimated Creatinine Clearance 71.49 ml/min (50-250); Glucose 223 mg/dL (70-99); Potassium 4.2 mmol/L (3.3-5.1); Sodium Level 136 mmol/L (133-145)
[2024-09-13] MEDS: Senna/Docusate Sodium 1 Tablet 2 TABLET PO (08:32)
[2024-09-13] MEDS: Aspirin 81 MG TAB.CHEW PO (08:32)
[2024-09-13] MEDS: Cholecalciferol (Vit D3) 125 MCG CAPSULE (5,000 UNITS) PO (08:32)
[2024-09-13] MEDS: Pantoprazole Sodium 40 MG Tablet PO ×2 (08:33→22:10)
[2024-09-13] MEDS: Carvedilol 3.125 MG TABLET PO ×2 (08:33→22:09)
[2024-09-13] MEDS: Midodrine HCl 5 MG Tablet PO ×3 (08:33→16:25)
[2024-09-13] MEDS: SACUBITRIL/VALSARTAN 24/26 MG TABLET 1 EACH PO ×2 (08:33→22:11)
[2024-09-13] MEDS: Escitalopram Oxalate 20 MG Tablet PO (08:33)
[2024-09-13] MEDS: Clopidogrel Bisulfate 75 MG Tablet PO (08:33)
[2024-09-13] MEDS: Furosemide 20 MG Tablet PO (08:34)
[2024-09-13] MEDS: Enoxaparin 40 MG/0.4 ML Syringe SC (08:34)
[2024-09-13] MEDS: Lidocaine 5% Patch 1 PATCH TOPICAL (08:35)
[2024-09-13 08:37] VITALS: BP 126/76; PULSE 89; RESP 15; TEMP 36.6; O2SAT 97
--- NOTE | 2024-09-13 09:38 | PCM.PN.HOSP ---
Reason for Visit Reason for Visit: Diagnoses Other cystitis without hematuria (09/09/24) Nausea with vomiting, unspecified (09/09/24) Subjective Subjective Patient still some with suprapubic/right-sided pain, she reports it is about the same as it was yesterday, no significant nausea, no other new or acute complaints Objective Data Objective Data Vital Signs: Vital Signs Temp Pulse Resp BP Pulse Ox O2 Del Method 97.9 F 89 15 126/76 H 97 Room Air 09/13/24 08:37 09/13/24 08:37 09/13/24 08:37 09/13/24 08:37 09/13/24 08:37 09/13/24 08:37 Oxygen Delivery Method Room Air Weight: 85.1 kg Body Mass Index (BMI) 29.3 Intake & Output: Intake and Output for Last 24 Hours 09/11/24 09/12/24 09/13/24 23:59 23:59 23:59 Intake Total 1650 / 2050 1487.29 / 1487.29 120 / 120 Output Total 1100 / 1100 Balance 1650 / 1250 387.29 / 387.29 120 / 120 Lab / Micro Data 09/13/24 05:50 09/13/24 05:50 Labs: Laboratory Results - last 24 hr 09/12/24 12:20: POC Glucose 195 H 09/12/24 16:50: Urine Color Straw, Urine Clarity Clear, Urine pH 6.0, Ur Specific [place] 1.010, Urine Protein 15 H, Urine Glucose (UA) 1000 H, Urine Ketones Negative, Urine Occult Blood Negative, Urine Nitrite Negative, Urine Bilirubin Negative, Urine Urobilinogen Normal, Ur Leukocyte Esterase Negative, Urine RBC 0 SEEN, Urine WBC 0 SEEN, Ur Squamous Epith Cells 0-5 SEEN, Urine Bacteria 0 SEEN, Urine Mucus 0 SEEN, Urine Yeast 1+ 09/12/24 17:07: POC Glucose 352 H 09/12/24 22:16: POC Glucose 271 H 09/13/24 05:50: WBC 11.7 H, RBC 4.01 L, Hgb 11.3 L, Hct 35.1 L, MCV 87.5, MCH 28.2, MCHC 32.2, RDW Std Deviation 44.9 H, RDW Coeff of Spencer 14.0, Plt Count 232, MPV 10.1, Immature Gran % (Auto) 0.600, Neut % (Auto) 75.6 H, Lymph % (Auto) 14.4 L, [place] % (Auto) 6.9, Eos % (Auto) 1.6, Baso % (Auto) 0.9, Absolute Neuts (auto) 8.9 H, Absolute Lymphs (auto) 1.69, Nucleated RBC % 0, Sodium 136, Potassium 4.2, Chloride 104, Carbon Dioxide 21.1, Anion Gap 11, BUN 18, Creatinine 1.02, Estim Creat Clear Calc 71.49, Est GFR (MDRD) Non-Af 66, BUN/Creatinine Ratio 17.6, Glucose 223 H, Calcium 9.1 09/13/24 06:10: POC Glucose 214 H Micro: Microbiology 09/09/24 02:20 Urine, Clean Catch Urine Culture - Final Presumptive E. coli 09/08/24 21:30 Blood Culture (Wb) - Left Hand Blood Culture - Preliminary No growth in 48 hours. 09/08/24 21:25 Blood Culture (Wb) - Right Hand Blood Culture - Preliminary No growth in 48 hours. 09/08/24 12:44 Stool Enteric Bacteriology - Final 09/08/24 12:44 Stool Clostridioides difficile (PCR) - Final Physical Exam Narrative General: Alert, oriented, no apparent distress HEENT: Atraumatic, normocephalic Eyes: Anicteric, normal conjunctiva, extraocular movements grossly intact Neck: Supple Respiratory: normal respiratory effort Cardiovascular: Regular rate and rhythm GI: Soft, does have tenderness suprapubic to right side Extremities: No significant pitting edema but hands and feet slightly puffy Musculoskeletal: Moving all extremities Neuro: No overt focal neurological deficits Skin: No rashes appreciated Psych: Cooperative Assessment & Plan Assessment/Plan (1) Intractable nausea and vomiting: PLAN: Plan #Possible UTI - CT abdomen queries emphysematous cystitis - Patient with no urinary symptoms, unclear given her recent hospitalization if she ever had to be catheterized as this would potentially explain imaging findings but has had CT scans over the past couple of months which did show similar findings as well - Awaiting UA, pending UA results if they appear suspicious may need empiric coverage but presently patient afebrile and white blood cell count within normal limits with a left shift and no symptoms - Given her history of ESBL would cover with Zosyn -09/09: UA suspicious for UTI, blood pressure and clinically patient does seem to be improving on Zosyn, awaiting culture and sensitivity data for further management -09/10: Continue to wait for UTI, still has some intermittent suprapubic pain and dysuria, will be able to tailor antibiotics and decide on infectious disease consult once these results are available -09/11: Urine culture grew less than thousand colonies of E. coli however looking back it appears that antibiotics were started before urine was collected. 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 Will consult infectious disease for further recommendations -09/12: Patient still having some of the pain towards the right side but is worse with urination, Dr. Mcneil with infectious disease evaluated and is repeating urine culture and UA for emphysematous cystitis, Zosyn changed to meropenem and urology evaluation recommended. Will continue patient on IV antibiotics as recommended, spoke with ID and is recommended that patient be evaluated by urology before discharge, coverage resumes this coming Sunday, discussed with patient and she is agreeable -09/13: Repeat urine culture ordered and pending with patient on meropenem, pending urology consult Sunday. White blood cell count slightly higher with a slight left shift but presently hemodynamically stable, rereviewed CT scan and old ones did appear to have small focus of air however the CT scan had multiple areas of air that appeared especially on the right side of the bladder wall which was a significant difference from previous so do feel it is reasonable to continue patient on IV antibiotics and await urology consult especially given her multiple recent E. coli UTIs # Chronic combined heart failure -Last echo 05/04/2023 showed EF 15% with stage III diastolic dysfunction -Daily weights -I's and O's -Not in acute exacerbation - Patient received multiple medications for her chronic low back pain in addition to her Coreg, Entresto, spironolactone, Lasix and subsequently became hypotensive but completely asymptomatic - Will give very gentle hydration - Decrease Coreg, holding parameters for Entresto, will hold spironolactone and Lasix - Suspect that this is iatrogenic given lack of new complaints, query if patient has been compliant with medications at home given the effect on her blood pressure here however given her significantly low EF a low blood pressure is to be anticipated - Patient only takes midodrine daily, will schedule this 3 times a day and can decrease as blood pressure tolerates -09/09: Respiratory status stable, blood pressure improving, unclear if this was infection versus her multiple medications or both, continue to monitor, will hold off on adding back home medications at this time but will add back as tolerated starting tomorrow if patient vitally stable -09/12: Patient's blood pressures improved and she does feel a little bit edematous, some slight edema in hands and feet, will resume home Lasix -09/13: Patient back on her home Lasix and also received her Entresto and Coreg today and yesterday due to improvement in blood pressure Chronic medical problems and/or problems not being actively addressed during today's encounter: # Intractable nausea and vomiting?resolved -CT abdomen pelvis on admission with possible UTI but no inflammatory changes noted around the bowel - Presently resolved - Patient on IV PPI - Does still have stool studies pending if patient has further diarrhea but thus far this seems to improved - Will advance diet and assess tolerability -09/09: This is resolved, may have been due to possible underlying UTI, continue antibiotics # Chronic lower back and leg pain secondary to chronic compression fractures - Supportive care - PT/OT -09/09: Continuing supportive care, distal complaint of back and leg pain, does appear more comfortable today #Type 2 diabetes mellitus -Glucose checks and sliding scale insulin - Patient to start diet so make this ACHS - Also continue 20 units of insulin glargine # History of coronary artery disease -Aspirin, statin, beta-linda #Tobacco use -Advise cessation -Nicotine replacement available if desired # 2 cm indeterminate right adrenal lesion - Will ultimately need further imaging and/for monitoring, this has been noted on scans previous and this can likely be done on an outpatient basis #GERD -Continue PPI #DVT ppx: Lovenox subcu Brenda Posadas MD Time spent in the patient's overall evaluation,decision-making process, review of diagnostic data, adjustment of management, discussion with other providers, nursing nursing and ancillary staff involved in patient's care documentation, 40 Minutes Charges/Coding Visit Charges Inpatient E&M: 92978 Subs Hosp L2
[2024-09-13] MEDS: Insulin Lispro 100 UNIT/ML INSULN.PEN SC ×3 (11:09→22:07)
[2024-09-13 11:29] LABS: Bedside Glucose 181 mg/dL (74-106)
[2024-09-13] MEDS: tiZANidine HCl 2 MG Tablet 4 MG PO ×2 (13:00→22:09)
[2024-09-13] MEDS: Gabapentin 100 MG Capsule 200 MG PO ×2 (13:00→22:09)
[2024-09-13 14:43] VITALS: BP 106/60; PULSE 103; RESP 17; TEMP 36.7; O2SAT 93
[2024-09-13 16:50] LABS: Bedside Glucose 249 mg/dL (74-106)
[2024-09-13 20:00] VITALS: BP 110/67; PULSE 88; RESP 18; TEMP 36.3; O2SAT 100
[2024-09-13 22:05] VITALS: BP 122/69; PULSE 85; RESP 18; TEMP 36.2; O2SAT 99
[2024-09-13] MEDS: Insulin Glargine-YFGN 100 UNIT/ML Pen 20 UNIT SC (22:06)
[2024-09-13] MEDS: Atorvastatin Calcium 80 MG Tablet PO (22:11)
[2024-09-13] MEDS: Nystatin Powder 15gm Bottle 1 APPLIC TOPICAL (22:13)
[2024-09-13 22:34] LABS: Bedside Glucose 207 mg/dL (74-106)
[2024-09-14 04:45] VITALS: BP 124/74; PULSE 83; RESP 18; TEMP 36.6; O2SAT 98
[2024-09-14 04:47] VITALS: BMI 29.5
[2024-09-14] MEDS: tiZANidine HCl 2 MG Tablet 4 MG PO ×3 (04:51→21:57)
[2024-09-14] MEDS: Gabapentin 100 MG Capsule 200 MG PO ×3 (04:52→21:56)
[2024-09-14] MEDS: Ondansetron 4 MG/2 ML Vial IV ×2 (04:53→19:40)
[2024-09-14] MEDS: Nystatin Powder 15gm Bottle 1 APPLIC TOPICAL ×2 (05:01→14:54)
[2024-09-14] MEDS: 0.9% Saline Lock 10 ML Syringe IV ×4 (05:01→19:43)
[2024-09-14] MEDS: Meropenem 1 GM in 0.9% Normal Saline (100mL MB+) 100 ML IV ×3 (05:02→22:04)
[2024-09-14 06:18] LABS: Absolute Lymphocyte Count 2.26 X10^3/uL (0.83-4.51); Absolute Neutrophil Count 8.4 X10^3/uL (2.0-7.7); Basophil# 0.06 X10^3/uL; Basophil% 0.5 % (0-1); Eosinophil# 0.15 X10^3/uL; Eosinophils% 1.3 % (0-5); Hematocrit 36.7 % (37-47); Hemoglobin 11.5 g/dL (12.0-15.0); Lymphocyte # 2.26 X10^3/ul (0.83-4.51); Lymphocyte % 19.3 % (19-41); Mean Corp Hgb Conc 31.3 g/dL (32-36); Mean Corpuscular Volume 89.5 fL (81-99); Mean Platelet Vol. 11.3 fl (6.2-12.0); NRBC Flagged by Analyzer 0 % (0-5); Neutrophil # 8.44 X10^3/uL (2.7-7.7); Neutrophil % 72.3 % (47-70); POSITIVE COUNT YES; RBC Distribution Width CV 14.1 % (11.6-14.6); RBC Distribution Width SD 46.5 fl (35.1-43.9); White Blood Count 11.7 K/mm3 (4.4-11.0)
[2024-09-14] MEDS: Insulin Lispro 100 UNIT/ML INSULN.PEN SC ×4 (06:25→22:00)
[2024-09-14 06:37] LABS: Differential Indicated SCAN CRITERIA MET
[2024-09-14 06:44] LABS: Bedside Glucose 172 mg/dL (74-106)
[2024-09-14 06:56] LABS: Platelet Count 129 K/mm3 (150-450)
[2024-09-14 07:17] LABS: Anion Gap 11 (5-15); BUN 21 mg/dL (4-19); BUN/Creat Ratio 25.9 RATIO (10-20); Chloride 103 mmol/L (98-108); Creatinine, Serum 0.81 mg/dL (0.70-1.20); EST Glomerular Filtration Rate 87 (>60); Estimated Creatinine Clearance 90.18 ml/min (50-250); Glucose 181 mg/dL (70-99); Potassium 4.6 mmol/L (3.3-5.1); Sodium Level 134 mmol/L (133-145)
[2024-09-14 07:42] VITALS: BP 108/74; PULSE 77; RESP 16; TEMP 36.8; O2SAT 99
[2024-09-14] MEDS: oxyCODONE 5 MG Tablet PO ×3 (07:48→21:56)
[2024-09-14] MEDS: Aspirin 81 MG TAB.CHEW PO (07:48)
[2024-09-14] MEDS: Midodrine HCl 5 MG Tablet PO ×3 (07:48→18:23)
[2024-09-14] MEDS: Lidocaine 5% Patch 1 PATCH TOPICAL (07:50)
--- NOTE | 2024-09-14 09:10 | PCM.PN.HOSP ---
Reason for Visit Reason for Visit: Diagnoses Other cystitis without hematuria (09/09/24) Nausea with vomiting, unspecified (09/09/24) Subjective Subjective Patient still reports that he abdominal discomfort, has not changed significantly in quality or location, reports she thinks has been present longer today but today is denying any pain in urination, still has not had a bowel movement but is now taking stool softeners Objective Data Objective Data Vital Signs: Vital Signs Temp Pulse Resp BP Pulse Ox O2 Del Method 98.2 F 77 16 108/74 99 Room Air 09/14/24 07:42 09/14/24 07:42 09/14/24 07:42 09/14/24 07:42 09/14/24 07:42 09/14/24 08:27 Oxygen Delivery Method Room Air Weight: 85.4 kg Body Mass Index (BMI) 29.5 Intake & Output: Intake and Output for Last 24 Hours 09/12/24 09/13/24 09/14/24 23:59 23:59 23:59 Intake Total 1487.29 / 1487.29 720 / 720 360 / 360 Output Total 1100 / 1100 1000 / 1000 700 / 700 Balance 387.29 / 387.29 -280 / -280 -340 / -340 Lab / Micro Data 09/14/24 05:27 09/14/24 05:27 Labs: Laboratory Results - last 24 hr 09/13/24 11:08: POC Glucose 181 H 09/13/24 16:23: POC Glucose 249 H 09/13/24 22:05: POC Glucose 207 H 09/14/24 05:27: WBC 11.7 H, RBC 4.10 L, Hgb 11.5 L, Hct 36.7 L, MCV 89.5, MCH 28.0, MCHC 31.3 L, RDW Std Deviation 46.5 H, RDW Coeff of Spencer 14.1, Plt Count 129 L, MPV 11.3, Immature Gran % (Auto) 0.600, Neut % (Auto) 72.3 H, Lymph % (Auto) 19.3, [place] % (Auto) 6.0, Eos % (Auto) 1.3, Baso % (Auto) 0.5, Absolute Neuts (auto) 8.4 H, Absolute Lymphs (auto) 2.26, Nucleated RBC % 0, Sodium 134, Potassium 4.6, Chloride 103, Carbon Dioxide 20.0 L, Anion Gap 11, BUN 21 H, Creatinine 0.81, Estim Creat Clear Calc 90.18, Est GFR (MDRD) Non-Af 87, BUN/Creatinine Ratio 25.9 H, Glucose 181 H, Calcium 9.0 09/14/24 06:24: POC Glucose 172 H Micro: Microbiology 09/12/24 16:50 Urine, Clean Catch Urine Culture - Preliminary Culture exhibits no growth. 09/08/24 21:30 Blood Culture (Wb) - Left Hand Blood Culture - Final No growth in 5 days. 09/08/24 21:25 Blood Culture (Wb) - Right Hand Blood Culture - Final No growth in 5 days. 09/09/24 02:20 Urine, Clean Catch Urine Culture - Final Presumptive E. coli 09/08/24 12:44 Stool Enteric Bacteriology - Final 09/08/24 12:44 Stool Clostridioides difficile (PCR) - Final Physical Exam Narrative General: Alert, oriented, no apparent distress HEENT: Atraumatic, normocephalic Eyes: Anicteric, normal conjunctiva, extraocular movements grossly intact Neck: Supple Respiratory: normal respiratory effort Cardiovascular: Regular rate and rhythm GI: Soft, does have tenderness suprapubic to right side, seem less tender when listening with stethoscope and palpating at the same time the did seem to still have some tenderness laterally, no pain on the left side Extremities: Swelling in hands and improving Musculoskeletal: Moving all extremities Neuro: No overt focal neurological deficits Skin: No rashes appreciated Psych: Cooperative Assessment & Plan Assessment/Plan (1) Intractable nausea and vomiting: PLAN: Plan #Possible UTI - CT abdomen queries emphysematous cystitis - Patient with no urinary symptoms, unclear given her recent hospitalization if she ever had to be catheterized as this would potentially explain imaging findings but has had CT scans over the past couple of months which did show similar findings as well - Awaiting UA, pending UA results if they appear suspicious may need empiric coverage but presently patient afebrile and white blood cell count within normal limits with a left shift and no symptoms - Given her history of ESBL would cover with Zosyn -09/09: UA suspicious for UTI, blood pressure and clinically patient does seem to be improving on Zosyn, awaiting culture and sensitivity data for further management -09/10: Continue to wait for UTI, still has some intermittent suprapubic pain and dysuria, will be able to tailor antibiotics and decide on infectious disease consult once these results are available -09/11: Urine culture grew less than thousand colonies of E. coli however looking back it appears that antibiotics were started before urine was collected. 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 Will consult infectious disease for further recommendations -09/12: Patient still having some of the pain towards the right side but is worse with urination, Dr. Mcneil with infectious disease evaluated and is repeating urine culture and UA for emphysematous cystitis, Zosyn changed to meropenem and urology evaluation recommended. Will continue patient on IV antibiotics as recommended, spoke with ID and is recommended that patient be evaluated by urology before discharge, coverage resumes this coming Sunday, discussed with patient and she is agreeable -09/13: Repeat urine culture ordered and pending with patient on meropenem, pending urology consult Sunday. White blood cell count slightly higher with a slight left shift but presently hemodynamically stable, rereviewed CT scan and old ones did appear to have small focus of air however the CT scan had multiple areas of air that appeared especially on the right side of the bladder wall which was a significant difference from previous so do feel it is reasonable to continue patient on IV antibiotics and await urology consult especially given her multiple recent E. coli UTIs -09/14: Repeat urine culture no growth to date, patient with evidence of emphysematous cystitis with pain and multiple recent ESBL UTIs, ID following, patient on Merrem, neurology consult recommended when coverage resumes 09/15 # Chronic combined heart failure -Last echo 05/04/2023 showed EF 15% with stage III diastolic dysfunction -Daily weights -I's and O's -Not in acute exacerbation - Patient received multiple medications for her chronic low back pain in addition to her Coreg, Entresto, spironolactone, Lasix and subsequently became hypotensive but completely asymptomatic - Will give very gentle hydration - Decrease Coreg, holding parameters for Entresto, will hold spironolactone and Lasix - Suspect that this is iatrogenic given lack of new complaints, query if patient has been compliant with medications at home given the effect on her blood pressure here however given her significantly low EF a low blood pressure is to be anticipated - Patient only takes midodrine daily, will schedule this 3 times a day and can decrease as blood pressure tolerates -09/09: Respiratory status stable, blood pressure improving, unclear if this was infection versus her multiple medications or both, continue to monitor, will hold off on adding back home medications at this time but will add back as tolerated starting tomorrow if patient vitally stable -09/12: Patient's blood pressures improved and she does feel a little bit edematous, some slight edema in hands and feet, will resume home Lasix -09/13: Patient back on her home Lasix and also received her Entresto and Coreg today and yesterday due to improvement in blood pressure -09/14: Patient is hemodynamically improving, unclear if this is due to from an infection as the only thing that changed was that patient is being treated for an underlying UTI Chronic medical problems and/or problems not being actively addressed during today's encounter: # Intractable nausea and vomiting?resolved -CT abdomen pelvis on admission with possible UTI but no inflammatory changes noted around the bowel - Presently resolved - Patient on IV PPI - Does still have stool studies pending if patient has further diarrhea but thus far this seems to improved - Will advance diet and assess tolerability -09/09: This is resolved, may have been due to possible underlying UTI, continue antibiotics # Chronic lower back and leg pain secondary to chronic compression fractures - Supportive care - PT/OT -09/09: Continuing supportive care, distal complaint of back and leg pain, does appear more comfortable today #Type 2 diabetes mellitus -Glucose checks and sliding scale insulin - Patient to start diet so make this ACHS - Also continue 20 units of insulin glargine # History of coronary artery disease -Aspirin, statin, beta-linda #Tobacco use -Advise cessation -Nicotine replacement available if desired # 2 cm indeterminate right adrenal lesion - Will ultimately need further imaging and/for monitoring, this has been noted on scans previous and this can likely be done on an outpatient basis #GERD -Continue PPI #DVT ppx: Lovenox subcu Brenda Posadas MD Time spent in the patient's overall evaluation,decision-making process, review of diagnostic data, adjustment of management, discussion with other providers, nursing nursing and ancillary staff involved in patient's care documentation, 38 Minutes Charges/Coding Visit Charges Inpatient E&M: 25175 Subs Hosp L2
[2024-09-14 09:42] VITALS: BP 127/68; PULSE 85; RESP 16; TEMP 36.7
[2024-09-14] MEDS: Escitalopram Oxalate 20 MG Tablet PO (09:54)
[2024-09-14] MEDS: Carvedilol 3.125 MG TABLET PO ×2 (09:54→21:57)
[2024-09-14] MEDS: Senna/Docusate Sodium 1 Tablet 2 TABLET PO (09:54)
[2024-09-14] MEDS: Furosemide 20 MG Tablet PO (09:55)
[2024-09-14] MEDS: Pantoprazole Sodium 40 MG Tablet PO ×2 (09:55→21:58)
[2024-09-14] MEDS: SACUBITRIL/VALSARTAN 24/26 MG TABLET 1 EACH PO ×2 (09:55→21:57)
[2024-09-14] MEDS: Cholecalciferol (Vit D3) 125 MCG CAPSULE (5,000 UNITS) PO (09:56)
[2024-09-14] MEDS: Clopidogrel Bisulfate 75 MG Tablet PO (09:57)
[2024-09-14 12:05] LABS: Bedside Glucose 288 mg/dL (74-106)
[2024-09-14] MEDS: Morphine 2 MG/ML Syringe IV (12:20)
[2024-09-14 18:14] VITALS: BP 131/76; PULSE 95; RESP 16; TEMP 36.8; O2SAT 97
[2024-09-14 18:47] LABS: Bedside Glucose 248 mg/dL (74-106)
[2024-09-14 21:27] LABS: Bedside Glucose 188 mg/dL (74-106)
[2024-09-14 21:55] VITALS: BP 118/65; PULSE 88; RESP 18; TEMP 37.1; O2SAT 98
[2024-09-14] MEDS: Acetaminophen 325 MG Tablet 650 MG PO (21:56)
[2024-09-14] MEDS: Atorvastatin Calcium 80 MG Tablet PO (21:58)
[2024-09-14] MEDS: Insulin Glargine-YFGN 100 UNIT/ML Pen 20 UNIT SC (22:00)
[2024-09-15] VITALS (8 sets, daily range): BP systolic 99–133; BP diastolic 42–77; PULSE 78–100; RESP 16–20; TEMP 36.1–36.8; O2SAT 94–98; BMI 29.8
[2024-09-15] MEDS: 0.9% Saline Lock 10 ML Syringe IV ×4 (04:34→21:51)
[2024-09-15] MEDS: Ondansetron 4 MG/2 ML Vial IV (04:35)
[2024-09-15 04:37] LABS: Absolute Lymphocyte Count 1.34 X10^3/uL (0.83-4.51); Absolute Neutrophil Count 6.8 X10^3/uL (2.0-7.7); Basophil# 0.06 X10^3/uL; Basophil% 0.7 % (0-1); Eosinophil# 0.11 X10^3/uL; Eosinophils% 1.2 % (0-5); Hematocrit 32.2 % (37-47); Hemoglobin 10.3 g/dL (12.0-15.0); Lymphocyte # 1.34 X10^3/ul (0.83-4.51); Lymphocyte % 14.8 % (19-41); Mean Corpuscular Hgb 27.5 pg (27.0-32.0); Mean Corpuscular Volume 86.1 fL (81-99); Monocyte# 0.73 X10^3/uL; Monocyte% 8.1 % (0-10); NRBC Flagged by Analyzer 0 % (0-5); Neutrophil # 6.75 X10^3/uL (2.7-7.7); Neutrophil % 74.8 % (47-70); Platelet Count 211 K/mm3 (150-450); RBC Distribution Width SD 43.8 fl (35.1-43.9); Red Blood Count 3.74 M/mm3 (4.2-5.4)
[2024-09-15] MEDS: Gabapentin 100 MG Capsule 200 MG PO ×3 (04:38→21:55)
[2024-09-15] MEDS: tiZANidine HCl 2 MG Tablet 4 MG PO ×3 (04:38→21:49)
[2024-09-15] MEDS: Nystatin Powder 15gm Bottle 1 APPLIC TOPICAL ×2 (04:39→21:49)
[2024-09-15] MEDS: Meropenem 1 GM in 0.9% Normal Saline (100mL MB+) 100 ML IV ×3 (04:39→21:44)
[2024-09-15 05:01] LABS: Anion Gap 8 (5-15); BUN 15 mg/dL (4-19); BUN/Creat Ratio 19.5 RATIO (10-20); Calcium,Total 9.1 mg/dL (7.6-11.0); Carbon Dioxide 27.6 mmol/L (21.0-32.0); Chloride 100 mmol/L (98-108); Creatinine, Serum 0.79 mg/dL (0.70-1.20); EST Glomerular Filtration Rate 89 (>60); Estimated Creatinine Clearance 93.04 ml/min (50-250); Glucose 172 mg/dL (70-99); Potassium 3.9 mmol/L (3.3-5.1); Sodium Level 136 mmol/L (133-145)
[2024-09-15] MEDS: Insulin Lispro 100 UNIT/ML INSULN.PEN SC ×4 (06:33→21:46)
[2024-09-15] MEDS: Acetaminophen 325 MG Tablet 650 MG PO ×2 (06:34→11:59)
[2024-09-15] MEDS: oxyCODONE 5 MG Tablet PO ×3 (06:34→18:16)
[2024-09-15 06:53] LABS: Bedside Glucose 188 mg/dL (74-106)
--- NOTE | 2024-09-15 07:22 | PCM.PN.HOSP ---
Reason for Visit Reason for Visit: Diagnoses Other cystitis without hematuria (09/09/24) Nausea with vomiting, unspecified (09/09/24) Subjective Subjective Patient is a 54-year-old lady who was admitted with nausea vomiting as well as back pain for [address] of the abdomen on admission demonstrated questionable emphysematous cystitis. Admitted to a monitored bed for subsequent management. Objective Data Objective Data Vital Signs: Vital Signs Temp Pulse Resp BP Pulse Ox O2 Del Method 98.0 F 78 18 122/69 H 98 Room Air 09/15/24 04:41 09/15/24 04:41 09/15/24 04:41 09/15/24 04:41 09/15/24 04:41 09/15/24 04:41 Oxygen Delivery Method Room Air Weight: 86.5 kg Body Mass Index (BMI) 29.8 Intake & Output: Intake and Output for Last 24 Hours 09/13/24 09/14/24 09/15/24 23:59 23:59 23:59 Intake Total 720 / 720 1440 / 1440 120 / 120 Output Total 1000 / 1000 700 / 700 Balance -280 / -280 740 / 740 120 / 120 Lab / Micro Data 09/15/24 04:08 09/15/24 04:08 Labs: Laboratory Results - last 24 hr 09/14/24 11:36: POC Glucose 288 H 09/14/24 18:20: POC Glucose 248 H 09/14/24 21:03: POC Glucose 188 H 09/15/24 04:08: WBC 9.0, RBC 3.74 L, Hgb 10.3 L, Hct 32.2 L, MCV 86.1, MCH 27.5, MCHC 32.0, RDW Std Deviation 43.8, RDW Coeff of Spencer 14.0, Plt Count 211, MPV 10.0, Immature Gran % (Auto) 0.400, Neut % (Auto) 74.8 H, Lymph % (Auto) 14.8 L, [place] % (Auto) 8.1, Eos % (Auto) 1.2, Baso % (Auto) 0.7, Absolute Neuts (auto) 6.8, Absolute Lymphs (auto) 1.34, Nucleated RBC % 0, Sodium 136, Potassium 3.9, Chloride 100, Carbon Dioxide 27.6, Anion Gap 8, BUN 15, Creatinine 0.79, Estim Creat Clear Calc 93.04, Est GFR (MDRD) Non-Af 89, BUN/Creatinine Ratio 19.5, Glucose 172 H, Calcium 9.1 09/15/24 06:33: POC Glucose 188 H Micro: Microbiology 09/12/24 16:50 Urine, Clean Catch Urine Culture - Preliminary Culture exhibits no growth. 09/08/24 21:30 Blood Culture (Wb) - Left Hand Blood Culture - Final No growth in 5 days. 09/08/24 21:25 Blood Culture (Wb) - Right Hand Blood Culture - Final No growth in 5 days. 09/09/24 02:20 Urine, Clean Catch Urine Culture - Final Presumptive E. coli 09/08/24 12:44 Stool Enteric Bacteriology - Final 09/08/24 12:44 Stool Clostridioides difficile (PCR) - Final Physical Exam Narrative GENERAL: cooperative HEENT: Atraumatic; normocephalic EYES; Anicteric, Normal Conjunctiva NECK; supple, normal thyroid, RESPIRATORY: Diminished to auscultation CARDIOVASCULAR: Regular S1 S2, GI: soft, normoactive bowel sounds, : No Renal angle tenderness; EXTREMITIES: No edema, no clubbing, MUSCULOSKELETAL: no muscle wasting NEURO: Awake; no lateralizing signs. SKIN: No Rash PSYCH; Flat affect Assessment & Plan Assessment/Plan (1) Intractable nausea and vomiting: PLAN: Plan Patient is a 54-year-old lady who was admitted with nausea vomiting as well as back pain for [address] of the abdomen on admission demonstrated questionable emphysematous cystitis. Admitted to a monitored bed for subsequent management. 1. 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 Patient managed with broad-spectrum antibiotic therapy with meropenem given her history of ESBL. Consult was placed to ID recommendation was made to obtain urology consultation which has since been placed awaiting input 2. Chronic congestive heart failure with reduced ejection fraction ? 2D echo obtained did showThe left ventricular ejection fraction is 30 %. Normal LV size. There are regional wall motion abnormalities as specified. Compared to previous study, the left ventricular systolic function has improved.. Patient is on diuretic therapy continue 3. Peripheral arterial disease -Previous stent about 1 year ago CTA with runoff shows severe disease. Dopplers were unremarkable. Consult placed to vascular surgery opinion was that patient pain was more related to peripheral arterial disease. Patient is on recommended medications including dual antiplatelet therapy as well as statin therapy. Plan is for patient to follow-up as outpatient 4. GERD/possible esophagitis ? Patient is on PPI plan is for patient to follow-up with GI as outpatient for EGD and colonoscopy 5. Diabetes mellitus type II -patient's oral hypoglycemics held. Placed on long acting insulin, Accu-Cheks a.c. and at bedtime and covered with sliding scale insulin. 6.Coronary artery disease ? Previous evaluation by cardiology on 06/02/2023. Optimization of medical therapy recommended 7. Chronic hypotension ? Patient is on midodrine 8. Dyslipidemia ?Patient is on statin therapy, continued at home dose 9. Tobacco dependence ? Counseled on cessation, offered nicotine patch for tobacco cravings 10. Chronic back pain ? Secondary to chronic compression fractures plan is to continue with PT OT as tolerated 11. DVT prophylaxis enoxaparin 40 daily Time spent in the patient's overall evaluation,decision-making process, review of diagnostic data, adjustment of management, discussion with other providers, nursing nursing and ancillary staff involved in patient's care documentation, 38 minutes Charges/Coding Visit Charges Inpatient E&M: 63257 Subs Hosp L2
[2024-09-15] MEDS: proCHLORPERazine 10 MG/2 ML Vial 5 MG IV (08:21)
[2024-09-15] MEDS: Midodrine HCl 5 MG Tablet PO ×3 (08:57→16:30)
[2024-09-15] MEDS: Aspirin 81 MG TAB.CHEW PO (08:58)
[2024-09-15] MEDS: Cholecalciferol (Vit D3) 125 MCG CAPSULE (5,000 UNITS) PO (08:58)
[2024-09-15] MEDS: Senna/Docusate Sodium 1 Tablet 2 TABLET PO (08:58)
[2024-09-15] MEDS: Escitalopram Oxalate 20 MG Tablet PO (08:58)
[2024-09-15] MEDS: Enoxaparin 40 MG/0.4 ML Syringe SC (08:59)
[2024-09-15] MEDS: Clopidogrel Bisulfate 75 MG Tablet PO (08:59)
[2024-09-15] MEDS: Pantoprazole Sodium 40 MG Tablet PO ×2 (09:00→21:49)
[2024-09-15] MEDS: Lidocaine 5% Patch 1 PATCH TOPICAL (09:01)
--- NOTE | 2024-09-15 11:12 | CON.PCM.UR_ITS ---
HPI Consult Data Date of Consult: 09/15/24 HPI Narrative Reason for Consultation: Emphysematous cystitis HPI Narrative: TRENTON DENTON, is a 54 F who presents With emphysematous cystitis, CT scan was done recently the demonstrated some air in the anterior part of the bladder. I'll see any clear signs of a fistula. She does have positive cultures of E. coli. Need to be treated the public course of IV antibiotics. I'll see any immediate intervention necessary from urology. Call w questions. [facility] Medical History L5 vertebral fracture ESBL (extended spectrum beta-lactamase) producing bacteria infection Generalized weakness Candidiasis of breast Colitis Debility PTSD (post-traumatic stress disorder) Closed compression fracture of L3 vertebra Hypokalemia Colitis BiPAP (biphasic positive airway pressure) dependence Coronary artery disease On home oxygen therapy Rheumatoid arthritis Sleep apnea Smoker DVT (deep venous thrombosis) Seizures Amputation toe Psychiatric disorder Ischemic cardiomyopathy Diabetes type 2, uncontrolled Essential hypertension Substance abuse Alcohol abuse Depression Osteoporosis GERD (gastroesophageal reflux disease) Pulmonary embolism Myocardial infarct Pericardial effusion Hypoxemia Acute dyspnea Aftercare following surgery of the circulatory system Hx of fracture of humerus Toe amputee Hyperlipidemia CHF (congestive heart failure) CAD (coronary artery disease), [place] coronary artery Home Medications ?Medication ?Instructions ?Recorded ?Last Taken ?Type aspirin 81 mg capsule 81 mg PO DAILY heart health 08/10/22 09/06/24 History clopidogrel 75 mg tablet 75 mg PO DAILY anti platelet #30 02/03/23 09/06/24 Rx tabs pantoprazole 40 mg tablet,delayed 40 mg PO DAILY reflu x 04/18/23 09/06/24 History release sacubitril 24 mg-valsartan 26 mg 1 tab PO BID . 30 day s #60 tabs 05/07/23 09/06/24 Rx tablet (Entresto) atorvastatin 80 mg tablet 80 mg PO QHS cholesterol 09/06/24 History gabapentin 300 mg capsule 300 mg PO TID nerve pain 09/06/24 History insulin lispro 100 unit/mL 1 sliding scale dose subcut TIDCM 12/29/23 09/06/24 History subcutaneous half-unit pen glucose DIC 2%/RINKU 6%/LIDOC 2% IN 1 - 2 pump subdermal Q6H TX N FOR 02/14/24 09/06/24 History saltsable FEET cholecalciferol (vitamin D3) 1,250 1,250 mcg PO WE sup plement 02/14/24 09/03/24 History mcg (50,000 unit) tablet spironolactone 25 mg tablet 25 mg PO DAILY water pill 30 days 02/17/24 09/06/24 Rx #0 tabs carvedilol 3.125 mg tablet 6.25 mg (2 x 3.125 mg) PO B ID 02/19/24 09/06/24 Rx blood pressure 30 days #0 tabs ergocalciferol (vitamin D2) 1,250 1,250 mcg PO We@1000 #0 caps 02/19/24 09/03/24 Rx mcg (50,000 unit) capsule (Vitamin D2) insulin glargine 100 unit/mL (3 20 unit (0.2 mL) subcu t QPM 30 02/19/24 09/06/24 Rx mL) subcutaneous pen (Lantus days #0 mL Solostar U-100 Insulin) escitalopram oxalate 20 mg tablet 20 mg PO DAILY depre ssion 06/29/24 09/06/24 History furosemide 20 mg tablet 20 mg PO DAILY water pill 09/06/24 History midodrine 2.5 mg tablet 2.5 mg PO DAILY blood pressu re 06/29/24 09/06/24 History polyethylene glycol 3350 17 17 g PO BID PRN constipati on 06/29/24 Unknown History gram/dose oral powder (Miralax) sennosides 8.6 mg-docusate sodium 2 tab PO BID PRN con stipation 06/29/24 Unknown History 50 mg tablet (Stimulant Laxative Plus) tizanidine 4 mg tablet 4 mg PO 3XD spasm 06/29/24 0 09/06/24 History acetaminophen 500 mg tablet 1,000 mg (2 x 500 mg) PO Q 8 #0 tabs 09/02/24 09/06/24 Rx ondansetron 4 mg disintegrating 4 mg PO Q8H PRN PRN Na usea #10 tabs 09/05/24 Unknown Rx tablet Allergy/AdvReac Type Severity Reaction Status Date / Time latex Allergy Hives Verified 09/07/24 22:29 Family History Mother Thyroid disorder Diabetes Hypertension Grandmother Diabetes Uncle Diabetes Aunt Diabetes Other Heart disease Surgical History History of cholecystectomy History of appendectomy History of cholecystectomy Social History household members: spouse and children housing: house Smoking Status: Current every day smoker tobacco type: cigarettes Smoking packs per day: 0.5 Smoking cigarettes per day: 10.0 alcohol intake: never substance use type: marijuana what type of physical activity do you participate in: none do you feel safe at home: Yes Lab / Micro Data 09/15/24 04:08 09/15/24 04:08 Labs: Laboratory Results - last 24 hr 09/14/24 11:36: POC Glucose 288 H 09/14/24 18:20: POC Glucose 248 H 09/14/24 21:03: POC Glucose 188 H 09/15/24 04:08: WBC 9.0, RBC 3.74 L, Hgb 10.3 L, Hct 32.2 L, MCV 86.1, MCH 27.5, MCHC 32.0, RDW Std Deviation 43.8, RDW Coeff of Spencer 14.0, Plt Count 211, MPV 10.0, Immature Gran % (Auto) 0.400, Neut % (Auto) 74.8 H, Lymph % (Auto) 14.8 L, Campbell % (Auto) 8.1, Eos % (Auto) 1.2, Baso % (Auto) 0.7, Absolute Neuts (auto) 6.8, Absolute Lymphs (auto) 1.34, Nucleated RBC % 0, Sodium 136, Potassium 3.9, Chloride 100, Carbon Dioxide 27.6, Anion Gap 8, BUN 15, Creatinine 0.79, Estim Creat Clear Calc 93.04, Est GFR (MDRD) Non-Af 89, BUN/Creatinine Ratio 19.5, G lucose 172 H, Calcium 9.1 09/15/24 06:33: POC Glucose 188 H Micro: Microbiology 09/12/24 16:50 Urine, Clean Catch Urine Culture - Preliminary Culture exhibits no growth.
[2024-09-15] MEDS: Furosemide 20 MG Tablet PO (11:53)
[2024-09-15 12:32] LABS: Bedside Glucose 234 mg/dL (74-106)
--- NOTE | 2024-09-15 14:26 | PCM.PN.ID ---
Physical Exam Narrative Ongoing bladder pain, concerned her IV infiltrated and she was not getting abx doses. No fever, no dysuria. Const alert and no apparent distress General Appearance: cooperative Resp normal air movement and clear to auscultation bilaterally Cardio regular rate and regular rhythm GI soft to palpation, non-tender and non-distended Skin no rashes or lesions noted ID ID: Route of nutrition/ use of supplements: [] Nutritional Intake: [] IV Site: [] Hathaway Catheter: [] Assessment & Plan Assessment/Plan (1) Emphysematous cystitis: PLAN: H/o esbl uti. Cont ena. Seen by urology. Tentative plan is for midline and iv ertapenem once daily as outpt. Will follow (2) Intractable nausea and vomiting:
[2024-09-15 17:51] LABS: Bedside Glucose 218 mg/dL (74-106)
[2024-09-15] MEDS: Insulin Glargine-YFGN 100 UNIT/ML Pen 20 UNIT SC (21:45)
[2024-09-15] MEDS: Carvedilol 3.125 MG TABLET PO (21:49)
[2024-09-15] MEDS: Atorvastatin Calcium 80 MG Tablet PO (21:49)
[2024-09-15] MEDS: SACUBITRIL/VALSARTAN 24/26 MG TABLET 1 EACH PO (21:50)
[2024-09-15] MEDS: Menthol/Lanolin/Calamine/Znox 113 GM Tube 1 APPLIC TOPICAL (21:56)
[2024-09-15 23:41] LABS: Bedside Glucose 278 mg/dL (74-106)
[2024-09-16] VITALS (7 sets, daily range): BP systolic 144–179; BP diastolic 74–94; PULSE 91–113; RESP 16–18; TEMP 36.2–36.8; O2SAT 90–98; BMI 28.7
[2024-09-16] MEDS: oxyCODONE 5 MG Tablet PO (00:13)
[2024-09-16] MEDS: Acetaminophen 325 MG Tablet 650 MG PO (00:14)
[2024-09-16] MEDS: 0.9% Normal Saline (100mL Bag) 100 ML 15 ML IV (03:51)
[2024-09-16] MEDS: 0.9% Saline Lock 10 ML Syringe IV ×5 (03:54→14:38)
[2024-09-16] MEDS: Ondansetron 4 MG/2 ML Vial IV ×2 (03:54→14:38)
[2024-09-16] MEDS: Insulin Lispro 100 UNIT/ML INSULN.PEN SC (06:33)
[2024-09-16] MEDS: Gabapentin 100 MG Capsule 200 MG PO ×2 (06:33→14:34)
[2024-09-16] MEDS: Nystatin Powder 15gm Bottle 1 APPLIC TOPICAL (06:34)
[2024-09-16] MEDS: Meropenem 1 GM in 0.9% Normal Saline (100mL MB+) 100 ML IV (06:38)
[2024-09-16] MEDS: tiZANidine HCl 2 MG Tablet 4 MG PO ×2 (06:43→14:34)
[2024-09-16 06:53] LABS: Bedside Glucose 215 mg/dL (74-106)
[2024-09-16] MEDS: proCHLORPERazine 10 MG/2 ML Vial 5 MG IV (07:19)
--- NOTE | 2024-09-16 08:13 | PN.HOSP_ITS ---
Reason for Visit Reason for Visit: Diagnoses Other cystitis without hematuria (09/09/24) Nausea with vomiting, unspecified (09/09/24) Subjective Subjective Case discussed with Dr. Mcneil with ID patient to be discharged home on IV antibiotics Objective Data Objective Data Vital Signs: Vital Signs Temp Pulse Resp BP Pulse Ox O2 Del Method 98.2 F 92 16 145/74 H 98 Room Air 09/16/24 03:50 09/16/24 03:50 09/16/24 03:50 09/16/24 03:50 09/16/24 03:50 09/16/24 03:50 Oxygen Delivery Method Room Air Weight: 83.1 kg Body Mass Index (BMI) 28.7 Intake & Output: Intake and Output for Last 24 Hours 09/14/24 09/15/24 09/16/24 23:59 23:59 23:59 Intake Total 1440 / 1440 600 / 600 770 / 770 Output Total 700 / 700 0 / 0 Balance 740 / 740 600 / 600 770 / 770 Lab / Micro Data 09/16/24 09:59 09/16/24 09:19 Labs: Laboratory Results - last 24 hr 09/15/24 11:52: POC Glucose 234 H 09/15/24 16:18: POC Glucose 218 H 09/15/24 21:40: POC Glucose 278 H 09/16/24 06:32: POC Glucose 215 H Micro: Microbiology 09/12/24 16:50 Urine, Clean Catch Urine Culture - Final Yeast, not Ashley albicans 09/08/24 21:30 Blood Culture (Wb) - Left Hand Blood Culture - Final No growth in 5 days. 09/08/24 21:25 Blood Culture (Wb) - Right Hand Blood Culture - Final No growth in 5 days. 09/09/24 02:20 Urine, Clean Catch Urine Culture - Final Presumptive E. coli 09/08/24 12:44 Stool Enteric Bacteriology - Final 09/08/24 12:44 Stool Clostridioides difficile (PCR) - Final Physical Exam Narrative GENERAL: cooperative HEENT: Atraumatic; normocephalic EYES; Anicteric, Normal Conjunctiva NECK; supple, normal thyroid, RESPIRATORY: Diminished to auscultation CARDIOVASCULAR: Regular S1 S2, GI: soft, normoactive bowel sounds, : No Renal angle tenderness; EXTREMITIES: No edema, no clubbing, MUSCULOSKELETAL: no muscle wasting NEURO: Awake; no lateralizing signs. SKIN: No Rash PSYCH; Flat affect Assessment & Plan Assessment/Plan (1) Intractable nausea and vomiting: PLAN: Plan Patient is a 54-year-old lady who was admitted with nausea vomiting as well as back pain for [address] of the abdomen on admission demonstrated questionable emphysematous cystitis. Admitted to a monitored bed for subsequent management. 1. 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 Patient managed with broad-spectrum antibiotic therapy with meropenem given her history of ESBL. Consult was placed to ID recommendation was made to obtain urology consultation which has since been placed awaiting input ?Repeat cultures grew nonsignificant colony count of yeast not Ashley albicans. Case discussed with Dr. Mcneil with infectious disease plan is for patient to be discharged home with IV ertapenem for 7 days 2. Chronic congestive heart failure with reduced ejection fraction ? 2D echo obtained did showThe left ventricular ejection fraction is 30 %. Normal LV size. There are regional wall motion abnormalities as specified. Compared to previous study, the left ventricular systolic function has improved. . Patient is on diuretic therapy continue 3. Peripheral arterial disease -Previous stent about 1 year ago CTA with runoff shows severe disease. Dopplers were unremarkable. Consult placed to vascular surgery opinion was that patient pain was more related to peripheral arterial disease. Patient is on recommended medications including dual antiplatelet therapy as well as statin therapy. Plan is for patient to follow-up as outpatient 4. GERD/possible esophagitis ? Patient is on PPI plan is for patient to follow-up with GI as outpatient for EGD and colonoscopy 5. Diabetes mellitus type II -patient's oral hypoglycemics held. Placed on long acting insulin, Accu-Cheks a.c. and at bedtime and covered with sliding scale insulin. 6.Coronary artery disease ? Previous evaluation by cardiology on 06/02/2023. Optimization of medical therapy recommended 7. Chronic hypotension ? Patient is on midodrine 8. Dyslipidemia ?Patient is on statin therapy, continued at home dose 9. Tobacco dependence ? Counseled on cessation, offered nicotine patch for tobacco cravings 10. Chronic back pain ? Secondary to chronic compression fractures plan is to continue with PT OT as tolerated 11. DVT prophylaxis enoxaparin 40 daily Time spent in the patient's overall evaluation,decision-making process, review of diagnostic data, adjustment of management, discussion with other providers, nursing nursing and ancillary staff involved in patient's care documentation, 38 minutes
[2024-09-16] MEDS: Aspirin 81 MG TAB.CHEW PO (09:14)
[2024-09-16] MEDS: Midodrine HCl 5 MG Tablet PO (09:15)
[2024-09-16] MEDS: SACUBITRIL/VALSARTAN 24/26 MG TABLET 1 EACH PO (09:15)
[2024-09-16] MEDS: Carvedilol 3.125 MG TABLET PO (09:15)
[2024-09-16] MEDS: Furosemide 20 MG Tablet PO (09:15)
[2024-09-16] MEDS: Escitalopram Oxalate 20 MG Tablet PO (09:15)
[2024-09-16] MEDS: Cholecalciferol (Vit D3) 125 MCG CAPSULE (5,000 UNITS) PO (09:16)
[2024-09-16] MEDS: Lidocaine 5% Patch 1 PATCH TOPICAL (09:16)
[2024-09-16] MEDS: Pantoprazole Sodium 40 MG Tablet PO (09:16)
[2024-09-16] MEDS: Enoxaparin 40 MG/0.4 ML Syringe SC (09:16)
[2024-09-16] MEDS: Clopidogrel Bisulfate 75 MG Tablet PO (09:16)
[2024-09-16] MEDS: Senna/Docusate Sodium 1 Tablet 2 TABLET PO (09:17)
--- NOTE | 2024-09-16 09:34 | NURSING ---
Reinforced with patient that she is not to be up on her own d/t fall. x3 side rails up and patient put down her own side rail in front of nursing staff.
[2024-09-16 10:06] LABS: Absolute Lymphocyte Count 1.72 X10^3/uL (0.83-4.51); Absolute Neutrophil Count 10.5 X10^3/uL (2.0-7.7); Basophil# 0.05 X10^3/uL; Basophil% 0.4 % (0-1); Eosinophil# 0.07 X10^3/uL; Eosinophils% 0.5 % (0-5); Hematocrit 35.1 % (37-47); Hemoglobin 11.4 g/dL (12.0-15.0); Lymphocyte # 1.72 X10^3/ul (0.83-4.51); Mean Corp Hgb Conc 32.5 g/dL (32-36); Mean Corpuscular Hgb 27.9 pg (27.0-32.0); Mean Corpuscular Volume 85.8 fL (81-99); Mean Platelet Vol. 9.9 fl (6.2-12.0); Monocyte# 0.82 X10^3/uL; Monocyte% 6.2 % (0-10); NRBC Flagged by Analyzer 0 % (0-5); Neutrophil # 10.49 X10^3/uL (2.7-7.7); Neutrophil % 79.4 % (47-70); Platelet Count 229 K/mm3 (150-450); RBC Distribution Width CV 13.8 % (11.6-14.6); RBC Distribution Width SD 43.5 fl (35.1-43.9); Red Blood Count 4.09 M/mm3 (4.2-5.4); White Blood Count 13.2 K/mm3 (4.4-11.0)
--- NOTE | 2024-09-16 10:17 | PCM.PN.ID ---
Physical Exam Narrative Not feeling well, ongoing abd pain, c/o n/v this AM. Const alert Constitutional Narrative: not feeling well Resp normal air movement and clear to auscultation bilaterally Cardio regular rate and regular rhythm GI soft to palpation and non-distended GI Narrative: RLQ soreness Skin no rashes or lesions noted ID ID: Route of nutrition/ use of supplements: [] Nutritional Intake: [] IV Site: [] Hathaway Catheter: [] Assessment & Plan Assessment/Plan (1) Emphysematous cystitis: PLAN: H/o esbl uti. On ena. Seen by urology. When she is ready, plan is for midline and iv ertapenem once daily as outpt for 7 more days with weekly labs. Wrote rx, d/w Dr. Aaron. Will follow (2) Intractable nausea and vomiting:
--- NOTE | 2024-09-16 10:20 | CASEMGMT ---
RN FILIPPO received script for IV ATBs at discharge. RN CM in to discuss discharge planning. Patient is tearful, saying she is in pain and nauseous. RN CM helped reposition patient. RN CM inquired about plan for discharge. Patient states she wants to go home and have [facility]. Patient continuous to cry and moan, RN FILIPPO inquired if patient would like heating pad or warm compress to help alleviate pain, patients states yes. Patient then states she doesn't know what to do. RN FILIPPO discuss previous recommendations for patient to follow-up with Pain Management and Ortho as outpatient for her back pain. Patient continues to cry, stating she doesn't want to be a burden to her daughter and just wants to go back to the skilled nursing to get better. CHAYITO BARKLEY updated patient that she did well with therapy ambulating modified independent. RN CM asked patient to participate in therapy today, patient agreeable. Patient denies further needs. CHAYITO BARKLEY updated nursing regarding pain and request for heating pad/warm compress for back pain. CHAYITO BARKELY requested EXERCISE PHYSIOLOGY PROFESSOR to work with patient. CHAYITO BARKLEY updated SW and hospitalist regarding request for SNF.
--- NOTE | 2024-09-16 10:22 | CASEMGMT ---
Per RN CM patient has now decided she wants to go to a shelter. KIKE met with patient. Introduced self and role at [facility]. SW asked patient if she knew which SNF she would like or would she like a list. Patient said she wants the one in [place]. SW told patient that the one in [place] does not take her insurance. SW reminded patient when she was at [facility] recently and they tried [facility] at that time. Patient said they are in network. Patient then she said she would like a list. SW asked Arelis to please print a list. Sarah Rebollar DEMAND PLANNING ANALYST NARCISA
--- NOTE | 2024-09-16 10:26 | CASEMGMT ---
Discharge Planning A list of SNF providers including quality and resource use data and consistent with the patient's preferred geographic region, medical needs, and insurance network was created in [facility] Guide.? This list was provided to the SW. Arelis Ngo Discharge Planning Asst.
--- NOTE | 2024-09-16 10:30 | CASEMGMT ---
SW took patient a SNF list and asked that she choose 3-4 and SW will work on referrals. SW asked patient to do this as soon as possible as she is ready for discharge. Sarah BREWSTER
[2024-09-16 10:36] LABS: Anion Gap 10 (5-15); BUN 17 mg/dL (4-19); BUN/Creat Ratio 24.8 RATIO (10-20); Calcium,Total 9.3 mg/dL (7.6-11.0); Chloride 101 mmol/L (98-108); Creatinine, Serum 0.69 mg/dL (0.70-1.20); EST Glomerular Filtration Rate 104 (>60); Estimated Creatinine Clearance 104.49 ml/min (50-250); Glucose 195 mg/dL (70-99); Potassium 4.1 mmol/L (3.3-5.1); Sodium Level 138 mmol/L (133-145)
--- NOTE | 2024-09-16 10:54 | CASEMGMT ---
Apparently, per physician patient has changed her mind and is agreeable to go home. Sarah BREWSTER
[2024-09-16] MEDS: proMETHazine 25 MG/ML Syringe IM (11:16)
[2024-09-16] MEDS: Morphine 2 MG/ML Syringe IV (11:16)
--- NOTE | 2024-09-16 11:17 | CASEMGMT ---
CHAYITO BARKLEY updated by hospitalist that patient is willing to go home at discharge. CHAYITO BARKLEY in to discuss discharge planning. Patient prefers to go to the [facility] Outpatient infusion center for IV ATBs. Patient does not want to discuss further plans at this time until she get her medications for pain and nausea. CHAYITO BARKLEY faxed referral to Infusion Center. CM will continue to follow this patient and plan for a safe discharge.
[2024-09-16] MEDS: Ertapenem Sod 1 GM in 0.9% Normal Saline (50mL MB+) 50 ML IV (11:23)
--- NOTE | 2024-09-16 12:01 | PCM.DC.SUM ---
Providers Date of Admission: 09/09/24 Date of Discharge: 09/16/24 Primary Care Physician: Zohreh Pratt, C, LEATHER SORTER-C Consultations 09/11/24 12:37 Consult: Infectious Disease Routine Consulting Provider: Dominguez Mcneil Reason for Consult: emphysematous cystitis, hx ESBL EMERGENT Consult: No MD Notified: Yes Date Notified: 09/11/24 Time Notified: 12:37 Method of Notification: Verbal 09/14/24 16:30 Consult: Urology Routine Consulting Provider: Amish Tariq Reason for Consult: AM c/s: Emphysem cystitis, rec ESBL UTIs, cont pain, ID rec'd uro consul EMERGENT Consult: No MD Notified: Yes Date Notified: 09/15/24 Time Notified: 08:53 Method of Notification: Answering Service Reason For Visit: INTRACTABLE N/V, HYPOKALEMIA Diagnosis Discharge Diagnosis (1) Intractable nausea and vomiting: Status: Acute Code(s): R11.2 - Nausea with vomiting, unspecified Plan Patient is a 54-year-old lady who was admitted with nausea vomiting as well as back pain for [address] of the abdomen on admission demonstrated questionable emphysematous cystitis. Admitted to a monitored bed for subsequent management. 1. 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 Patient managed with broad-spectrum antibiotic therapy with meropenem given her history of ESBL. Consult was placed to ID recommendation was made to obtain urology consultation which has since been placed awaiting input ?Repeat cultures grew nonsignificant colony count of yeast not Ashley albicans. Case discussed with Dr. Mcneil with infectious disease plan is for patient to be discharged home with IV ertapenem for 7 days 2. Chronic congestive heart failure with reduced ejection fraction ? 2D echo obtained did showThe left ventricular ejection fraction is 30 %. Normal LV size. There are regional wall motion abnormalities as specified. Compared to previous study, the left ventricular systolic function has improved.. Patient is on diuretic therapy continue 3. Peripheral arterial disease -Previous stent about 1 year ago CTA with runoff shows severe disease. Dopplers were unremarkable. Consult placed to vascular surgery opinion was that patient pain was more related to peripheral arterial disease. Patient is on recommended medications including dual antiplatelet therapy as well as statin therapy. Plan is for patient to follow-up as outpatient 4. GERD/possible esophagitis ? Patient is on PPI plan is for patient to follow-up with GI as outpatient for EGD and colonoscopy 5. Diabetes mellitus type II -patient's oral hypoglycemics held. Placed on long acting insulin, Accu-Cheks a.c. and at bedtime and covered with sliding scale insulin. 6.Coronary artery disease ? Previous evaluation by cardiology on 06/02/2023. Optimization of medical therapy recommended 7. Chronic hypotension ? Patient is on midodrine 8. Dyslipidemia ?Patient is on statin therapy, continued at home dose 9. Tobacco dependence ? Counseled on cessation, offered nicotine patch for tobacco cravings 10. Chronic back pain ? Secondary to chronic compression fractures plan is to continue with PT OT as tolerated 11. DVT prophylaxis enoxaparin 40 daily Time spent in the patient's overall evaluation,decision-making process, review of diagnostic data, adjustment of management, discussion with other providers, nursing nursing and ancillary staff involved in patient's care documentation, 38 minutes Medications at Discharge Home Medications aspirin 81 mg capsule 81 mg PO DAILY heart health 08/10/22 clopidogrel 75 mg tablet 75 mg PO DAILY anti platelet #30 tabs 02/03/23 pantoprazole 40 mg tablet,delayed release 40 mg PO DAILY reflux 04/18/23 sacubitril 24 mg-valsartan 26 mg tablet (Entresto) 1 tab PO BID . 30 days #60 tabs 05/07/23 atorvastatin 80 mg tablet 80 mg PO QHS cholesterol 12/29/23 gabapentin 300 mg capsule 300 mg PO TID nerve pain 12/29/23 insulin lispro 100 unit/mL subcutaneous half-unit pen 1 sliding scale dose subcut TIDCM glucose 12/29/23 DIC 2%/RINKU 6%/LIDOC 2% IN saltsable 1 - 2 pump subdermal Q6H PRN FOR FEET 02/14/24 cholecalciferol (vitamin D3) 1,250 mcg (50,000 unit) tablet 1,250 mcg PO WE supplement 02/14/24 spironolactone 25 mg tablet 25 mg PO DAILY water pill 30 days #0 tabs 02/17/24 carvedilol 3.125 mg tablet 6.25 mg (2 x 3.125 mg) PO BID blood pressure 30 days #0 tabs 02/19/24 ergocalciferol (vitamin D2) 1,250 mcg (50,000 unit) capsule (Vitamin D2) 1,250 mcg PO We@1000 #0 caps 02/19/24 insulin glargine 100 unit/mL (3 mL) subcutaneous pen (Lantus Solostar U-100 Insulin) 20 unit (0.2 mL) subcut QPM 30 days #0 mL 02/19/24 escitalopram oxalate 20 mg tablet 20 mg PO DAILY depression 06/29/24 furosemide 20 mg tablet 20 mg PO DAILY water pill 06/29/24 midodrine 2.5 mg tablet 2.5 mg PO DAILY blood pressure 06/29/24 polyethylene glycol 3350 17 gram/dose oral powder (Miralax) 17 g PO BID PRN constipation 06/29/24 sennosides 8.6 mg-docusate sodium 50 mg tablet (Stimulant Laxative Plus) 2 tab PO BID PRN constipation 06/29/24 tizanidine 4 mg tablet 4 mg PO 3XD spasm 06/29/24 acetaminophen 500 mg tablet 1,000 mg (2 x 500 mg) PO Q8 #0 tabs 09/02/24 ondansetron 4 mg disintegrating tablet 4 mg PO Q8H PRN PRN Nausea #10 tabs 09/05/24 acetaminophen 325 mg tablet 650 mg (2 x 325 mg) PO Q4H PRN PRN Fever, pain 1-10/10 #0 tabs 09/16/24 ertapenem 1 gram solution for injection 1 g IV Q24H 7 days #7 ea 09/16/24 lidocaine 5 % topical patch 1 patch topical DAILY #30 ea 09/16/24 ondansetron 4 mg disintegrating tablet 4 mg PO Q6H PRN nausea and vomiting #30 tabs 09/16/24 oxycodone 5 mg tablet 5 mg PO Q4H PRN PRN pain 4-10 3 days #14 tabs 09/16/24 sennosides 8.6 mg-docusate sodium 50 mg tablet (Stimulant Laxative Plus) 2 tab PO BID #60 tabs 09/16/24 Physical Exam Narrative GENERAL: cooperative HEENT: Atraumatic; normocephalic EYES; Anicteric, Normal Conjunctiva NECK; supple, normal thyroid, RESPIRATORY: Diminished to auscultation CARDIOVASCULAR: Regular S1 S2, GI: soft, normoactive bowel sounds, : No Renal angle tenderness; EXTREMITIES: No edema, no clubbing, MUSCULOSKELETAL: no muscle wasting NEURO: Awake; no lateralizing signs. SKIN: No Rash PSYCH; Flat affect Weight / BMI Weight Weight: 83.1 kg Body Mass Index (BMI) 28.7 ABG / Lab / Microbiology Data 09/16/24 09:59 09/16/24 09:19 Laboratory: Laboratory Results - last 24 hr 09/15/24 11:52: POC Glucose 234 H 09/15/24 16:18: POC Glucose 218 H 09/15/24 21:40: POC Glucose 278 H 09/16/24 06:32: POC Glucose 215 H 09/16/24 09:19: WBC Cancelled, Corrected WBC Cancelled, RBC Cancelled, Hgb Cancelled, Hct Cancelled, MCV Cancelled, MCH Cancelled, MCHC Cancelled, RDW Std Deviation Cancelled, RDW Coeff of Spencer Cancelled, Plt Count Cancelled, MPV Cancelled, Immature Gran % (Auto) Cancelled, Neut % (Auto) Cancelled, Lymph % (Auto) Cancelled, Falls % (Auto) Cancelled, Eos % (Auto) Cancelled, Baso % (Auto) Cancelled, Absolute Neuts (auto) Cancelled, Absolute Lymphs (auto) Cancelled, Total Counted Cancelled, Neutrophils % (Manual) Cancelled, Band Neutrophils % Cancelled, Lymphocytes % (Manual) Cancelled, Monocytes % (Manual) Cancelled, Eosinophils % (Manual) Cancelled, Basophils % (Manual) Cancelled, Metamyelocytes % Cancelled, Myelocytes % Cancelled, Promyelocytes % Cancelled, Blast Cells % Cancelled, Plasma Cell % (Manual) Cancelled, Other Cells % Cancelled, Nucleated RBC % Cancelled, Nucleated RBCs/100 WBC Cancelled, Differential Comment Cancelled, Diff Path Review Cancelled, Hypersegmented Neuts Cancelled, Atypical Lymphocytes Cancelled, Reactive Lymphocytes Cancelled, Smudge Cells Cancelled, Toxic Granulation Cancelled, Toxic Vacuolation Cancelled, Dohle Bodies Cancelled, Truman Rods Cancelled, Platelet Estimate Cancelled, Plt Morphology Comment Cancelled, RBC Morphology Cancelled 09/16/24 09:19: RBC Morphology Cancelled, Polychromasia Cancelled, Hypochromasia Cancelled, Basophilic Stippling Cancelled, Anisocytosis Cancelled, Microcytosis Cancelled, Macrocytosis Cancelled, Spherocytes Cancelled, Sickle Cells Cancelled, Target Cells Cancelled, Tear Drop Cells Cancelled, Ovalocytes Cancelled, Stomatocytes Cancelled, Burris-Grainola Bodies Cancelled, Lore Cells Cancelled, Bite Cells Cancelled, Crenated Cell Cancelled, Acanthocytes (Spur) Cancelled, Rouleaux Cancelled, Schistocytes Cancelled, Sodium 138, Potassium 4.1, Chloride 101, Carbon Dioxide 27.0, Anion Gap 10, BUN 17, Creatinine 0.69 L, Estim Creat Clear Calc 104.49, Est GFR (MDRD) Non-Af 104, BUN/Creatinine Ratio 24.8 H, Glucose 195 H, Calcium 9.3 09/16/24 09:59: WBC 13.2 H, RBC 4.09 L, Hgb 11.4 L, Hct 35.1 L, MCV 85.8, MCH 27.9, MCHC 32.5, RDW Std Deviation 43.5, RDW Coeff of Spencer 13.8, Plt Count 229, MPV 9.9, Immature Gran % (Auto) 0.500, Neut % (Auto) 79.4 H, Lymph % (Auto) 13.0 L, Falls % (Auto) 6.2, Eos % (Auto) 0.5, Baso % (Auto) 0.4, Absolute Neuts (auto) 10.5 H, Absolute Lymphs (auto) 1.72, Nucleated RBC % 0 09/16/24 11:22: POC Glucose 204 H Microbiology: Microbiology 09/12/24 16:50 Urine, Clean Catch Urine Culture - Final Yeast, not Ashley albicans 09/08/24 21:30 Blood Culture (Wb) - Left Hand Blood Culture - Final No growth in 5 days. 09/08/24 21:25 Blood Culture (Wb) - Right Hand Blood Culture - Final No growth in 5 days. 09/09/24 02:20 Urine, Clean Catch Urine Culture - Final Presumptive E. coli 09/08/24 12:44 Stool Enteric Bacteriology - Final 09/08/24 12:44 Stool Clostridioides difficile (PCR) - Final D/C Instructions Discharge Diet: 1800 Calorie Control Diet Discharge Activity: Return to Normal Activity Call your doctor if you observe: Fever of 101 or Higher, Shortness of breath, Fainting spells and Chest pain DC O2, CPAP, BIPAP Needs Home O2 Discharge instructions: No Meaningful Use Info Meaningful Use Meaningful Use Diagnoses (Choose all that apply): None applicable Ischemic Stroke Statin Dosing Therapy Reference: STATIN DOSE THERAPY REFERENCE: * Patients > 75 years receive moderate or high dose statin therapy. * Patients 75 years or YOUNGER should receive HIGH intensity statin dose unless contraindicated. You will be required to document reason for non-treatment if statin daily dose does not meet guidelines. HIGH DOSE STATIN THERAPY DAILY Atorvastatin > than or = to 40 mg Rosuvastatin > than or = to 20 mg Amlodipine + Atorvastatin > than or = to 2.5/40 mg Ezetimibe + Simvastatin 10/80 mg Simvastatin 80mg Discharge Plan Admission Admit Date/Time: 09/09/24 19:01 Attending Provider: Morro Aaron Primary Care Provider: Zohreh Pratt [facility] Consulting Providers: Rosaura Crane; Dominguez Mcneil; Brenda Posadas; Amish Tariq Discharge Orders/Prescriptions Prescriptions: New ertapenem 1 gram recon soln 1 g IV Q24H 7 Days Qty: 7 0RF Rx Instructions: Dx: emphysematous cystitis. Weekly bmp, LFT, and cbc while on iv abx. Fax to [phone]. acetaminophen 325 mg Tablet 650 mg PO Q4H PRN PRN (Reason: Fever, pain 1-10/10) Qty: 0 0RF oxycodone 5 mg Tablet 5 mg PO Q4H PRN PRN (Reason: pain 4-10) 3 Days Qty: 14 0RF sennosides-docusate sodium [Stimulant Laxative Plus] 8.6-50 mg Tablet 2 tab PO BID Qty: 60 0RF lidocaine 5 % Adhesive Patch,Medicated 1 patch topical DAILY Qty: 30 0RF Protocol: *Topical Application Instructions APPLICATION INSTRUCTIONS: to lower back ondansetron 4 mg tablet,disintegrating 4 mg PO Q6H PRN (Reason: nausea and vomiting) Qty: 30 0RF Continued pantoprazole 40 mg tablet,delayed release (DR/EC) 40 mg PO DAILY aspirin 81 mg Capsule 81 mg PO DAILY clopidogrel 75 mg Tablet 75 mg PO DAILY Qty: 30 0RF Patient Comments: patient stated pretty sure I still take that sacubitril-valsartan [Entresto] 24-26 mg Tablet 1 tab PO BID 30 Days Qty: 60 0RF insulin lispro 100 unit/mL insulin pen, half-unit 1 sliding scale dose subcut TIDCM Patient Comments: patient does not know sliding scale atorvastatin 80 mg tablet 80 mg PO QHS gabapentin 300 mg Capsule 300 mg PO TID tizanidine 4 mg tablet 4 mg PO 3XD midodrine 2.5 mg tablet 2.5 mg PO DAILY furosemide 20 mg tablet 20 mg PO DAILY escitalopram oxalate 20 mg tablet 20 mg PO DAILY sennosides-docusate sodium [Stimulant Laxative Plus] 8.6-50 mg Tablet 2 tab PO BID PRN (Reason: constipation) polyethylene glycol 3350 [Miralax] 17 gram/dose powder 17 g PO BID PRN (Reason: constipation) acetaminophen 500 mg Tablet 1,000 mg PO Q8 Qty: 0 0RF cholecalciferol (vitamin D3) 1,250 mcg (50,000 unit) tablet 1,250 mcg PO WE DIC 2%/RINKU 6%/LIDOC 2% IN saltsable cream 1 - 2 pump subdermal Q6H PRN (Reason: FOR FEET) spironolactone 25 mg tablet 25 mg PO DAILY 30 Days Qty: 0 0RF ergocalciferol (vitamin D2) [Vitamin D2] 1,250 mcg (50,000 unit) Capsule 1,250 mcg PO We@1000 Qty: 0 0RF carvedilol 3.125 mg tablet 6.25 mg PO BID 30 Days Qty: 0 0RF Rx Instructions: Hold for heart less than 50 or systolic blood pressure less than 100 mmHg. insulin glargine [Lantus Solostar U-100 Insulin] 100 unit/mL (3 mL) insulin pen 20 unit subcut QPM 30 Days Qty: 0 0RF Rx Instructions: Hold if glucose less than 130 mg/dl ondansetron 4 mg tablet,disintegrating 4 mg PO Q8H PRN PRN (Reason: Nausea) Qty: 10 0RF Referrals / Follow Up: Zohreh Pratt, LEATHER SORTER-C [Primary Care Provider] - Within 1 Week Disposition Disposition (needs filled in before D/C Order can be placed): Home, Self Care Charges/Coding Visit Charges Inpatient E&M: 67446 Disch Hosp >30min
[2024-09-16 12:02] LABS: Bedside Glucose 204 mg/dL (74-106)
--- NOTE | 2024-09-16 14:15 | PHA.DC.MC.R ---
Pharmacy [facility] has performed discharge medication reconciliation and counseling for this patient. The patient's discharge medication list was reviewed for discrepancies and discrepancies were resolved. The patient was counseled on the following discharge medications and changes in medications for homegoing were reviewed. The Reason for Use, instructions for use, and potential side effects were reviewed for all new medications. The patient's questions regarding all of their medications were answered. 1. Acetaminophen 650 mg PO Q4H PRIN pain 2. Ertapenem 1 gram Q24H x 7 days 3. Lidocaine 5% patch daily 4. Ondansetron 4 mg PO Q6H PRN nausea/vomiting 5. Senna/docusate 2 tablets PO BID The patient was able to verbally demonstrate an understanding of their discharge medications. The patient was counselled on new medications by retail pharmacy manager Balta. Medications at Discharge Home Medications aspirin 81 mg capsule 81 mg PO DAILY heart health 08/10/22 clopidogrel 75 mg tablet 75 mg PO DAILY anti platelet #30 tabs 02/03/23 pantoprazole 40 mg tablet,delayed release 40 mg PO DAILY reflux 04/18/23 sacubitril 24 mg-valsartan 26 mg tablet (Entresto) 1 tab PO BID . 30 days #60 tabs 05/07/23 atorvastatin 80 mg tablet 80 mg PO QHS cholesterol 12/29/23 gabapentin 300 mg capsule 300 mg PO TID nerve pain 12/29/23 insulin lispro 100 unit/mL subcutaneous half-unit pen 1 sliding scale dose subcut TIDCM glucose 12/29/23 DIC 2%/RINKU 6%/LIDOC 2% IN saltsable 1 - 2 pump subdermal Q6H PRN FOR FEET 02/14/24 cholecalciferol (vitamin D3) 1,250 mcg (50,000 unit) tablet 1,250 mcg PO WE supplement 02/14/24 spironolactone 25 mg tablet 25 mg PO DAILY water pill 30 days #0 tabs 02/17/24 carvedilol 3.125 mg tablet 6.25 mg (2 x 3.125 mg) PO BID blood pressure 30 days #0 tabs 02/19/24 ergocalciferol (vitamin D2) 1,250 mcg (50,000 unit) capsule (Vitamin D2) 1,250 mcg PO We@1000 #0 caps 02/19/24 insulin glargine 100 unit/mL (3 mL) subcutaneous pen (Lantus Solostar U-100 Insulin) 20 unit (0.2 mL) subcut QPM 30 days #0 mL 02/19/24 escitalopram oxalate 20 mg tablet 20 mg PO DAILY depression 06/29/24 furosemide 20 mg tablet 20 mg PO DAILY water pill 06/29/24 midodrine 2.5 mg tablet 2.5 mg PO DAILY blood pressure 06/29/24 polyethylene glycol 3350 17 gram/dose oral powder (Miralax) 17 g PO BID PRN constipation 06/29/24 sennosides 8.6 mg-docusate sodium 50 mg tablet (Stimulant Laxative Plus) 2 tab PO BID PRN constipation 06/29/24 tizanidine 4 mg tablet 4 mg PO 3XD spasm 06/29/24 acetaminophen 500 mg tablet 1,000 mg (2 x 500 mg) PO Q8 #0 tabs 09/02/24 ondansetron 4 mg disintegrating tablet 4 mg PO Q8H PRN PRN Nausea #10 tabs 09/05/24 acetaminophen 325 mg tablet 650 mg (2 x 325 mg) PO Q4H PRN PRN Fever, pain 1-10/10 #0 tabs 09/16/24 ertapenem 1 gram solution for injection 1 g IV Q24H 7 days #7 ea 09/16/24 lidocaine 5 % topical patch 1 patch topical DAILY #30 ea 09/16/24 ondansetron 4 mg disintegrating tablet 4 mg PO Q6H PRN nausea and vomiting #30 tabs 09/16/24 oxycodone 5 mg tablet 5 mg PO Q4H PRN PRN pain 4-10 3 days #14 tabs 09/16/24 sennosides 8.6 mg-docusate sodium 50 mg tablet (Stimulant Laxative Plus) 2 tab PO BID #60 tabs 09/16/24
--- NOTE | 2024-09-16 14:18 | CASEMGMT ---
CHAYITO BARKLEY called Outpatient Infusion to confirm start of care. Prabhu to report to Infusion Center tomorrow at 10am. CHAYITO BARKLEY added appt to discharge plan. CHAYITO BARKLEY in to updated patient regarding appt for infusion center. CHAYITO BARKLEY discussed outpaitent thearpy with harley. Patient agreeable to take script with [facility] and will schedule if she decides to attend. Patient denied further needs or concerns at discharge. CHAYITO BARKLEY updated hospitalist, script received for outpatient therapy and provided in discharge packet. CHAYITO BARKLEY updated discharge plan.
[2024-09-16] MEDS: hydrALAZINE 20 MG/ML Vial 10 MG IV (14:38)
== END 2024-09-16 16:30 | disposition home or self-care (01) | DRG 463 ==
LOC: ED 16:24 → PCU 09-08 06:50
PROVIDERS: Internal Medicine; Internal Medicine Infectious Disease; Admitting Provider Family Medicine; Emergency Provider Emergency Medicine; PCP Nurse Practitioner Family; Visit Provider Internal Medicine
DX: N30.80 Other cystitis without hematuria (principal); E87.20 Acidosis, unspecified; E27.8 Other specified disorders of adrenal gland; E83.51 Hypocalcemia; E11.40 Type 2 diabetes mellitus with diabetic neuropathy, unspecified; B96.20 Unspecified Escherichia coli [E. coli] as the cause of diseases classified elsewhere; I11.0 Hypertensive heart disease with heart failure; D64.9 Anemia, unspecified; E11.65 Type 2 diabetes mellitus with hyperglycemia; I25.5 Ischemic cardiomyopathy; F17.210 Nicotine dependence, cigarettes, uncomplicated; Z79.4 Long term (current) use of insulin; E87.6 Hypokalemia; E78.5 Hyperlipidemia, unspecified; G47.33 Obstructive sleep apnea (adult) (pediatric); M51.16 Intervertebral disc disorders with radiculopathy, lumbar region; I25.10 Atherosclerotic heart disease of native coronary artery without angina pectoris; E11.51 Type 2 diabetes mellitus with diabetic peripheral angiopathy without gangrene; K21.00 Gastro-esophageal reflux disease with esophagitis, without bleeding; I95.89 Other hypotension; I50.22 Chronic systolic (congestive) heart failure; I25.2 Old myocardial infarction; F12.90 Cannabis use, unspecified, uncomplicated; Z83.3 Family history of diabetes mellitus; Z79.02 Long term (current) use of antithrombotics/antiplatelets; G89.29 Other chronic pain; Z99.89 Dependence on other enabling machines and devices; Z87.440 Personal history of urinary (tract) infections; Z86.718 Personal history of other venous thrombosis and embolism; Z90.49 Acquired absence of other specified parts of digestive tract; M48.50XD Collapsed vertebra, not elsewhere classified, site unspecified, subsequent encounter for fracture with routine healing
CPT/HCPCS: 36415; 74018; 74177; 80048; 80053; 81001; 82306; 82330; 82652; 82962; 83690; 83735; 83970; 84100; 84145; 84443; 85025; 86850; 86900; 86901; 87040; 87086; 87088; 87493; 87506; 93005; 97110; 97116; 97162; 97166; 97530; 97535; 97802; 97803; 99283; J2185; P9047; Q9967; A4216; J0612; J2405

== ENCOUNTER 2024-09-21 12:16 | Emergency (ER) | payer MEDICAID, SELFPAY ==
[2024-09-21 12:16] VITALS: BP 163/88; PULSE 104; RESP 17; TEMP 36.6; O2SAT 99; BMI 28.4
--- NOTE | 2024-09-21 12:32 | EX.ED.DYSGE1 ---
HPI <MARTIN Berrios - Last Filed: 09/21/24 19:08> History of Present Illness Chief Complaint: Nausea/Vomiting/Diarrhea Narrative Narrative: Patient presenting today due to nausea, vomiting, diarrhea she has had over the last 3 days. 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 She has been taking Zofran for her nausea with minimal relief at home. She does admit to occasional marijuana use. She has not yet seen GI for this issue. She denies fevers, chills, hematemesis, urinary symptoms, and blood in her stool. She has a PMH of CHF, GERD, T2DM, CAD, HTN, HLD, and tobacco abuse. PFSH <MARTIN Berrios - Last Filed: 09/21/24 19:08> [facility] Medical History L5 vertebral fracture ESBL (extended spectrum beta-lactamase) producing bacteria infection Generalized weakness Candidiasis of breast Colitis Debility PTSD (post-traumatic stress disorder) Closed compression fracture of L3 vertebra Hypokalemia Colitis BiPAP (biphasic positive airway pressure) dependence Coronary artery disease On home oxygen therapy Rheumatoid arthritis Sleep apnea Smoker DVT (deep venous thrombosis) Seizures Amputation toe Psychiatric disorder Ischemic cardiomyopathy Diabetes type 2, uncontrolled Essential hypertension Substance abuse Alcohol abuse Depression Osteoporosis GERD (gastroesophageal reflux disease) Pulmonary embolism Myocardial infarct Pericardial effusion Hypoxemia Acute dyspnea Aftercare following surgery of the circulatory system Hx of fracture of humerus Toe amputee Hyperlipidemia CHF (congestive heart failure) CAD (coronary artery disease), [place] coronary artery Home Medications ?Medication ?Instructions ?Recorded ?Last Taken ?Type aspirin 81 mg capsule 81 mg PO DAILY heart health 08/10/22 09/06/24 History clopidogrel 75 mg tablet 75 mg PO DAILY anti platelet #30 02/03/23 09/06/24 Rx tabs pantoprazole 40 mg tablet,delayed 40 mg PO DAILY reflux 04/18/23 09/06/24 History release sacubitril 24 mg-valsartan 26 mg 1 tab PO BID . 30 days #60 tabs 05/07/23 09/06/24 Rx tablet (Entresto) atorvastatin 80 mg tablet 80 mg PO QHS cholesterol 12/29/23 09/06/24 History gabapentin 300 mg capsule 300 mg PO TID nerve pain 12/29/23 09/06/24 History insulin lispro 100 unit/mL 1 sliding scale dose subcut TIDCM 12/29/23 09/06/24 History subcutaneous half-unit pen glucose DIC 2%/RINKU 6%/LIDOC 2% IN 1 - 2 pump subdermal Q6H PRN FOR 02/14/24 09/06/24 History saltsable FEET cholecalciferol (vitamin D3) 1,250 1,250 mcg PO WE supplement 02/14/24 09/03/24 History mcg (50,000 unit) tablet spironolactone 25 mg tablet 25 mg PO DAILY water pill 30 days 02/17/24 09/06/24 Rx #0 tabs carvedilol 3.125 mg tablet 6.25 mg (2 x 3.125 mg) PO BID 02/19/24 09/06/24 Rx blood pressure 30 days #0 tabs ergocalciferol (vitamin D2) 1,250 1,250 mcg PO We@1000 #0 caps 02/19/24 09/03/24 Rx mcg (50,000 unit) capsule (Vitamin D2) insulin glargine 100 unit/mL (3 20 unit (0.2 mL) subcut QPM 30 02/19/24 09/06/24 Rx mL) subcutaneous pen (Lantus days #0 mL Solostar U-100 Insulin) escitalopram oxalate 20 mg tablet 20 mg PO DAILY depression 06/29/24 09/06/24 History furosemide 20 mg tablet 20 mg PO DAILY water pill 06/29/24 09/06/24 History midodrine 2.5 mg tablet 2.5 mg PO DAILY blood pressure 06/29/24 09/06/24 History polyethylene glycol 3350 17 17 g PO BID PRN constipation 06/29/24 Unknown History gram/dose oral powder (Miralax) sennosides 8.6 mg-docusate sodium 2 tab PO BID PRN constipation 06/29/24 Unknown History 50 mg tablet (Stimulant Laxative Plus) tizanidine 4 mg tablet 4 mg PO 3XD spasm 06/29/24 09/06/24 History acetaminophen 500 mg tablet 1,000 mg (2 x 500 mg) PO Q8 #0 tabs 09/02/24 09/06/24 Rx ondansetron 4 mg disintegrating 4 mg PO Q8H PRN PRN Nausea #10 tabs 09/05/24 Unknown Rx tablet acetaminophen 325 mg tablet 650 mg (2 x 325 mg) PO Q4H PRN PRN 09/16/24 Unknown Rx Fever, pain 1-10/10 #0 tabs ertapenem 1 gram solution for 1 g IV Q24H 7 days #7 ea 09/16/24 Unknown Rx injection lidocaine 5 % topical patch 1 patch topical DAILY #30 ea 09/16/24 Unknown Rx ondansetron 4 mg disintegrating 4 mg PO Q6H PRN nausea and 09/16/24 Unknown Rx tablet vomiting #30 tabs oxycodone 5 mg tablet 5 mg PO Q4H PRN PRN pain 4-10 3 09/16/24 Unknown Rx days #14 tabs sennosides 8.6 mg-docusate sodium 2 tab PO BID #60 tabs 09/16/24 Unknown Rx 50 mg tablet (Stimulant Laxative Plus) metoclopramide HCl 10 mg tablet 10 mg PO Q6H PRN nausea and 09/21/24 Unknown Rx (Reglan) vomiting 5 days #20 tabs Allergy/AdvReac Type Severity Reaction Status Date / Time latex Allergy Hives Verified 09/21/24 12:26 Family History Mother Thyroid disorder Diabetes Hypertension Grandmother Diabetes Uncle Diabetes Aunt Diabetes Other Heart disease Surgical History History of cholecystectomy History of appendectomy History of cholecystectomy Social History household members: spouse and children housing: house Smoking Status: Current every day smoker tobacco type: cigarettes alcohol intake: never substance use type: marijuana what type of physical activity do you participate in: none do you feel safe at home: Yes ROS <MARTIN Berrios - Last Filed: 09/21/24 19:08> ROS ED Constitutional Constitutional ED: Denies chills or fever(s) Cardiovascular Cardiovascular: Denies chest pain Respiratory/Chest Respiratory/Chest: Denies dyspnea Gastrointestinal Gastrointestinal: Reports abdominal pain, diarrhea, nausea and vomiting; Denies constipation Genitourinary Genitourinary ED: Denies dysuria, hematuria or urinary urgency Musculoskeletal Musculoskeletal: Denies arthralgias or myalgias Integumentary Denies rash Neurologic Neurologic: Denies weakness EXAM <MARTIN Berrios - Last Filed: 09/21/24 19:08> Physical Exam Const Vital Signs: 09/21/24 12:16 09/21/24 14:16 09/21/24 16:00 Temperature 97.9 F Temperature Source Oral Pulse Rate 104 H 105 H Respiratory Rate 17 Blood Pressure 163/88 H 159/85 H 144/85 H Blood Pressure Mean 113 109 104 Pulse Ox 99 98 98 Oxygen Delivery Method Room Air Room Air Room Air 09/21/24 17:11 Temperature 97.9 F Temperature Source Pulse Rate 110 H Respiratory Rate 16 Blood Pressure 139/102 H Blood Pressure Mean 114 Pulse Ox 98 Oxygen Delivery Method Positive well nourished, well developed and no apparent distress General Appearance ED: well developed HEENT Reports normocephalic, head/scalp atraumatic and dry mucous membranes Mouth ED: Yes dry mucous membranes Mouth: dry mucous membranes Eyes PERRL and EOMs intact bilaterally Neck full ROM and supple Chest Wall inspection of chest normal Resp normal respiratory effort and clear to auscultation bilaterally Cardio regular rate and regular rhythm GI soft to palpation, non-tender, non-distended and no masses Back/Spine normal ROM and normal to inspection Extremity normal to inspection and full ROM Neuro oriented x3, CN's II-XII intact bilaterally, moves all extremities, no focal motor deficits and no sensory deficits noted Sensorium / Orientation: awake and alert Psych mental status grossly normal and thought process normal Skin no rashes or lesions noted and no wounds <Dr. Riccardo Hillman DO - Last Filed: 09/21/24 21:40> Physical Exam Const Vital Signs: 09/21/24 12:16 09/21/24 14:16 09/21/24 16:00 Temperature 97.9 F Temperature Source Oral Pulse Rate 104 H 105 H Respiratory Rate 17 Blood Pressure 163/88 H 159/85 H 144/85 H Blood Pressure Mean 113 109 104 Pulse Ox 99 98 98 Oxygen Delivery Method Room Air Room Air Room Air 09/21/24 17:11 Temperature 97.9 F Temperature Source Pulse Rate 110 H Respiratory Rate 16 Blood Pressure 139/102 H Blood Pressure Mean 114 Pulse Ox 98 Oxygen Delivery Method MDM <MARTIN Berrios - Last Filed: 09/21/24 19:08> [facility] Narrative Medical decision making narrative: Patient presenting today due to nausea, vomiting, and diarrhea she has had over the past 3 days. She has been seen here several times in the past with similar symptoms. She reports generalized abdominal cramping that has been ongoing. I did review her previous inpatient notes. She had a recent CT scan of the abdomen and pelvis and was treated for emphysematous cystitis with IV ertapenem, she has a midline in place. I do not feel repeat abdominal imaging is indicated at this time given she has a nonsurgical abdomen. She is dry appearing, and will be given IV fluids and Zofran. On reexamination she reports she is still feeling nauseous, given she has a history of marijuana use, the cyclic vomiting ED order set was used and patient was given Benadryl with Thorazine. On reexamination she is resting comfortably in the bed sleeping, she has had no vomiting while here in the ED. She has had no diarrhea here. On reexamination she reports she is still feeling slightly nauseous but again has not had any vomiting and is resting comfortably in the bed, she was given Reglan. She is tolerating p.o. fluids. I will give her a prescription for Reglan and a referral to GI. She will be discharged home in stable condition. Lab Data Attestation: I reviewed the patient's lab results. Lab results narrative: CBC unremarkable, sodium 132, glucose 336, lipase WNL, normal anion gap, low suspicion for DKA, UA negative for UTI Labs: Laboratory Results - last 24 hr 09/21/24 09/21/24 09/21/24 12:51 13:30 13:55 WBC 10.5 RBC 4.49 Hgb 13.0 Hct 37.7 MCV 84.0 MCH 29.0 MCHC 34.5 RDW Std Deviation 39.7 RDW Coeff of [place] 13.0 Plt Count 275 MPV 9.3 Immature Gran % (Auto) 0.300 Neut % (Auto) 84.6 H Lymph % (Auto) 9.8 L [place] % (Auto) 4.3 Eos % (Auto) 0.6 Baso % (Auto) 0.4 Absolute Neuts (auto) 8.9 H Absolute Lymphs (auto) 1.03 Nucleated RBC % 0 Sodium Cancelled 132 L Potassium Cancelled 3.3 Chloride Cancelled 95 L Carbon Dioxide Cancelled 25.8 Anion Gap Cancelled 11 BUN Cancelled 9 Creatinine Cancelled 0.67 L Estim Creat Clear Calc Cancelled 107.12 Est GFR (MDRD) Non-Af Cancelled 105 BUN/Creatinine Ratio Cancelled 13.7 Glucose Cancelled 336 H Calcium Cancelled 9.3 Total Bilirubin Cancelled 1.08 AST Cancelled 19 ALT Cancelled 13 Alkaline Phosphatase Cancelled 128 H Total Protein Cancelled 6.9 Albumin Cancelled 3.6 Globulin Cancelled 3.3 Albumin/Globulin Ratio Cancelled 1.1 Lipase Cancelled 16 Urine Color Yellow Urine Clarity Clear Urine pH 7.0 Ur Specific [place] 1.010 Urine Protein 100 H Urine Glucose (UA) 1000 H Urine Ketones Negative Urine Occult Blood 25 H Urine Nitrite Negative Urine Bilirubin Negative Urine Urobilinogen Normal Ur Leukocyte Esterase Negative Urine RBC 0-5 SEEN Urine WBC 0 SEEN Ur Squamous Epith Cells 0-5 SEEN Urine Bacteria 0 SEEN Urine Mucus 0 SEEN Urine Yeast RARE <Dr. Riccardo Hillman, DO - Last Filed: 09/21/24 21:40> MDM History & Record Review Additional record(s) reviewed:: Prior inpatient record, Prior ED visit and Prior labs Lab Data Labs: Laboratory Results - last 24 hr 09/21/24 09/21/24 09/21/24 12:51 13:30 13:55 WBC 10.5 RBC 4.49 Hgb 13.0 Hct 37.7 MCV 84.0 MCH 29.0 MCHC 34.5 RDW Std Deviation 39.7 RDW Coeff of [place] 13.0 Plt Count 275 MPV 9.3 Immature Gran % (Auto) 0.300 Neut % (Auto) 84.6 H Lymph % (Auto) 9.8 L [place] % (Auto) 4.3 Eos % (Auto) 0.6 Baso % (Auto) 0.4 Absolute Neuts (auto) 8.9 H Absolute Lymphs (auto) 1.03 Nucleated RBC % 0 Sodium Cancelled 132 L Potassium Cancelled 3.3 Chloride Cancelled 95 L Carbon Dioxide Cancelled 25.8 Anion Gap Cancelled 11 BUN Cancelled 9 Creatinine Cancelled 0.67 L Estim Creat Clear Calc Cancelled 107.12 Est GFR (MDRD) Non-Af Cancelled 105 BUN/Creatinine Ratio Cancelled 13.7 Glucose Cancelled 336 H Calcium Cancelled 9.3 Total Bilirubin Cancelled 1.08 AST Cancelled 19 ALT Cancelled 13 Alkaline Phosphatase Cancelled 128 H Total Protein Cancelled 6.9 Albumin Cancelled 3.6 Globulin Cancelled 3.3 Albumin/Globulin Ratio Cancelled 1.1 Lipase Cancelled 16 Urine Color Yellow Urine Clarity Clear Urine pH 7.0 Ur Specific [place] 1.010 Urine Protein 100 H Urine Glucose (UA) 1000 H Urine Ketones Negative Urine Occult Blood 25 H Urine Nitrite Negative Urine Bilirubin Negative Urine Urobilinogen Normal Ur Leukocyte Esterase Negative Urine RBC 0-5 SEEN Urine WBC 0 SEEN Ur Squamous Epith Cells 0-5 SEEN Urine Bacteria 0 SEEN Urine Mucus 0 SEEN Urine Yeast RARE Treatment and Re-Evaluation :: I have personally performed a face to face assessment of the patient and have reviewed the JANICE Note. I performed a substantive portion of the visit including all aspects of the following. My jones findings include: History: Patient presents with abdominal pain began yesterday. Patient states it is gradual gotten worse. Patient describes it as stabbing. Patient states it is mainly over the right side of her abdomen. Patient states it comes and goes. Patient admits to some nausea and vomiting for the past week. Patient denies any hematemesis or coffee-ground emesis. Patient admits to some diarrhea that began today. Patient denies any melena or hematochezia. Patient denies any urinary complaints. Exam: Vital signs are stable except for an elevated blood pressure 163/88. Patient is afebrile. Patient is in no acute distress. Oral mucosa is pink moist. Neck is supple. Trachea is midline. There is no JVD. Heart was regular rate and rhythm. Lungs are clear and equal bilaterally. Abdomen is soft. Bowel sounds are normal. There is mild diffuse tenderness. There is no rebound or guarding noted. Cranial nerves II through XII are intact. There are no focal motor or sensory deficits. Medical Decision Making: Left differential diagnosis includes gastroenteritis, cannabis hyperemesis, diabetic ketoacidosis, electrolyte abnormality, dehydration, pancreatitis, and urinary tract infection. CBC will be obtained to assess for leukocytosis and anemia. Comprehensive metabolic profile will be obtained to assess for hepatic function, her renal function, and electrolyte abnormalities. Urinalysis will be obtained to assess for urinary tract infection and hematuria. Lipase will be obtained to assess for pancreatitis. Patient was given IV fluids, morphine, and Zofran. CBC was repeated and was within normal limits. Comprehensive metabolic profile was reviewed. The sodium was slightly low at 132 and chloride was 95. Glucose was mildly elevated at 336. CO2 was normal. Anion gap was normal. Lipase was reviewed and was normal at 16. Patient had minimal improvement of her symptoms. Patient was given Toradol, Thorazine, and Benadryl. Patient is resting comfortably on reevaluation. Patient was advised that her labs are within normal limits. Currently, there is no indication for admission to the hospital. Patient has not had any vomiting here. Patient still complains of nausea. Patient was instructed to follow-up with her primary care physician in 3 to 5 days. Patient understood and was agreeable with the plan. All questions were answered. Discharge Plan Triage Chief Complaint: Nausea/Vomiting/Diarrhea ED Midlevel Provider: Nina Richardson ED Provider: Riccardo Hillman Dx/Rx/DC Orders Clinical Impression: Nausea & vomiting, Cyclic vomiting syndrome Instructions: ED Cyclic Vomiting Syndrome Prescriptions: New metoclopramide HCl [Reglan] 10 mg tablet 10 mg PO Q6H PRN (Reason: nausea and vomiting) 5 Days Qty: 20 0RF No Action pantoprazole 40 mg tablet,delayed release (DR/EC) 40 mg PO DAILY aspirin 81 mg Capsule 81 mg PO DAILY clopidogrel 75 mg Tablet 75 mg PO DAILY Qty: 30 0RF Patient Comments: patient stated pretty sure I still take that sacubitril-valsartan [Entresto] 24-26 mg Tablet 1 tab PO BID 30 Days Qty: 60 0RF insulin lispro 100 unit/mL insulin pen, half-unit 1 sliding scale dose subcut TIDCM Patient Comments: patient does not know sliding scale atorvastatin 80 mg tablet 80 mg PO QHS gabapentin 300 mg Capsule 300 mg PO TID tizanidine 4 mg tablet 4 mg PO 3XD midodrine 2.5 mg tablet 2.5 mg PO DAILY furosemide 20 mg tablet 20 mg PO DAILY escitalopram oxalate 20 mg tablet 20 mg PO DAILY sennosides-docusate sodium [Stimulant Laxative Plus] 8.6-50 mg Tablet 2 tab PO BID PRN (Reason: constipation) polyethylene glycol 3350 [Miralax] 17 gram/dose powder 17 g PO BID PRN (Reason: constipation) acetaminophen 500 mg Tablet 1,000 mg PO Q8 Qty: 0 0RF ertapenem 1 gram [place] 1 g IV Q24H 7 Days Qty: 7 0RF Rx Instructions: Dx: emphysematous cystitis. Weekly bmp, LFT, and cbc while on iv abx. Fax to [phone]. acetaminophen 325 mg Tablet 650 mg PO Q4H PRN PRN (Reason: Fever, pain 1-10/10) Qty: 0 0RF oxycodone 5 mg Tablet 5 mg PO Q4H PRN PRN (Reason: pain 4-10) 3 Days Qty: 14 0RF sennosides-docusate sodium [Stimulant Laxative Plus] 8.6-50 mg Tablet 2 tab PO BID Qty: 60 0RF lidocaine 5 % Adhesive Patch,Medicated 1 patch topical DAILY Qty: 30 0RF Protocol: *Topical Application Instructions APPLICATION INSTRUCTIONS: to lower back ondansetron 4 mg tablet,disintegrating 4 mg PO Q6H PRN (Reason: nausea and vomiting) Qty: 30 0RF cholecalciferol (vitamin D3) 1,250 mcg (50,000 unit) tablet 1,250 mcg PO WE DIC 2%/RINKU 6%/LIDOC 2% IN saltsable cream 1 - 2 pump subdermal Q6H PRN (Reason: FOR FEET) spironolactone 25 mg tablet 25 mg PO DAILY 30 Days Qty: 0 0RF ergocalciferol (vitamin D2) [Vitamin D2] 1,250 mcg (50,000 unit) Capsule 1,250 mcg PO We@1000 Qty: 0 0RF carvedilol 3.125 mg tablet 6.25 mg PO BID 30 Days Qty: 0 0RF Rx Instructions: Hold for heart less than 50 or systolic blood pressure less than 100 mmHg. insulin glargine [Lantus Solostar U-100 Insulin] 100 unit/mL (3 mL) insulin pen 20 unit subcut QPM 30 Days Qty: 0 0RF Rx Instructions: Hold if glucose less than 130 mg/dl ondansetron 4 mg tablet,disintegrating 4 mg PO Q8H PRN PRN (Reason: Nausea) Qty: 10 0RF Primary Care Provider: Zohreh Pratt Referrals: Jeevan De Jesus DO [Med Staff - Active Staff] - 1 Week Zohreh Pratt, INTERNIST MEDICAL DOCTOR MD-C [Primary Care Provider] - Activity Restrictions/Additional Instructions: Follow-up with GI. Stay well-hydrated. Return for any other concerns. Can also follow-up with your PCP in the next 5 to 7 days. Print Language: Tajik Disposition Disposition: Home, Self Care Discharge Date/Time: 09/21/24 17:21
[2024-09-21] MEDS: Ketorolac 15 MG/ML Vial IV (12:47)
[2024-09-21] MEDS: Ondansetron 4 MG/2 ML Vial IV (12:47)
[2024-09-21] MEDS: 0.9% Normal Saline (1000mL) 1,000 ML 999 ML IV (12:48)
[2024-09-21 13:02] LABS: Absolute Lymphocyte Count 1.03 X10^3/uL (0.83-4.51); Absolute Neutrophil Count 8.9 X10^3/uL (2.0-7.7); Basophil# 0.04 X10^3/uL; Basophil% 0.4 % (0-1); Eosinophil# 0.06 X10^3/uL; Eosinophils% 0.6 % (0-5); Hematocrit 37.7 % (37-47); Lymphocyte # 1.03 X10^3/ul (0.83-4.51); Lymphocyte % 9.8 % (19-41); Mean Corp Hgb Conc 34.5 g/dL (32-36); Mean Platelet Vol. 9.3 fl (6.2-12.0); Monocyte# 0.45 X10^3/uL; Monocyte% 4.3 % (0-10); NRBC Flagged by Analyzer 0 % (0-5); Neutrophil # 8.93 X10^3/uL (2.7-7.7); Neutrophil % 84.6 % (47-70); Platelet Count 275 K/mm3 (150-450); RBC Distribution Width SD 39.7 fl (35.1-43.9); Red Blood Count 4.49 M/mm3 (4.2-5.4); White Blood Count 10.5 K/mm3 (4.4-11.0)
[2024-09-21 13:59] LABS: ALB/GLOB Ratio 1.1 RATIO (0.9-2.4); AST(SGOT) 19 U/L (<=31); Alanine Aminotransfer ALT/SGPT 13 U/L (<=34); Albumin, Serum 3.6 g/dL (3.5-5.0); Alkaline Phosphatase 128 U/L (35-104); Anion Gap 11 (5-15); BUN 9 mg/dL (4-19); BUN/Creat Ratio 13.7 RATIO (10-20); Calcium,Total 9.3 mg/dL (7.6-11.0); Carbon Dioxide 25.8 mmol/L (21.0-32.0); Chloride 95 mmol/L (98-108); Creatinine, Serum 0.67 mg/dL (0.70-1.20); EST Glomerular Filtration Rate 105 (>60); Estimated Creatinine Clearance 107.12 ml/min (50-250); Globulin 3.3 g/dL (2.2-4.2); Glucose 336 mg/dL (70-99); Lipase 16 U/L (13-75); Potassium 3.3 mmol/L (3.3-5.1); Protein, Total 6.9 g/dL (5.9-8.4); Sodium Level 132 mmol/L (133-145); Total Bilirubin 1.08 mg/dL (0.00-1.30)
[2024-09-21] MEDS: Morphine 4 MG/ML Syringe IV (14:02)
[2024-09-21 14:16] VITALS: BP 159/85; PULSE 105; O2SAT 98
[2024-09-21] MEDS: DiphenhydrAMINE 25 MG, ChlorproMAZINE IM 25 MG in 0.9% Normal Saline (100mL Bag) 100 ML 203 MG IV (14:54)
[2024-09-21 16:00] VITALS: BP 144/85; O2SAT 98
[2024-09-21 16:03] LABS: Bacteria 0 SEEN /hpf (None Seen); Mucous, Urine 0 SEEN /hpf (<or=2+); White Blood Cells 0 SEEN /hpf (0-5)
[2024-09-21 16:10] LABS: Color, Urine Yellow (Yellow); Glucose, Dipstick 1000 mg/dl (Normal); Ketone-Dipstick Negative (Negative); Leukocyte Esterase-Dipstick Negative /ul (Negative); Nitrite-Dipstick Negative (Negative); Occult Blood-Urine 25 /ul (Negative); Protein-Dipstick 100 mg/dl (Negative); Urine Bilirubin Dipstick Negative (Negative); Urine Clarity Clear (Clear); Urine Urobilinogen Normal (Normal)
[2024-09-21 16:36] LABS: Red Blood Cells-Urine 0-5 SEEN /hpf (0-5); Squamous Epithelial Cells - UA 0-5 SEEN /hpf (5-10); Yeast-Urine RARE /hpf (None Seen)
[2024-09-21] MEDS: Metoclopramide 10 MG/2 ML Vial 5 MG IV (17:10)
[2024-09-21 17:11] VITALS: BP 139/102; PULSE 110; RESP 16; TEMP 36.6; O2SAT 98
== END 2024-09-21 17:21 | disposition home or self-care (01) ==
PROVIDERS: Physician Assistant; Emergency Provider Emergency Medicine; PCP Nurse Practitioner Family; Visit Provider Emergency Medicine
DX: R11.2 Nausea with vomiting, unspecified (principal); I11.0 Hypertensive heart disease with heart failure; I50.9 Heart failure, unspecified; E11.9 Type 2 diabetes mellitus without complications; Z79.4 Long term (current) use of insulin; R19.7 Diarrhea, unspecified; F17.210 Nicotine dependence, cigarettes, uncomplicated; E78.5 Hyperlipidemia, unspecified; I25.10 Atherosclerotic heart disease of native coronary artery without angina pectoris; I25.2 Old myocardial infarction; Z79.82 Long term (current) use of aspirin; Z79.02 Long term (current) use of antithrombotics/antiplatelets; Z79.899 Other long term (current) drug therapy; F32.A Depression, unspecified; Z90.49 Acquired absence of other specified parts of digestive tract; R11.15 Cyclical vomiting syndrome unrelated to migraine
CPT/HCPCS: 36415; 80053; 81001; 83690; 85025; 96361; 96374; 96375; 99284; J2405

== ENCOUNTER 2024-09-29 10:16 | Emergency (ER) | payer MEDICAID, SELFPAY ==
[2024-09-29] VITALS (13 sets, daily range): BP systolic 107–182; BP diastolic 42–102; PULSE 97–142; RESP 13–24; TEMP 36.5–36.7; O2SAT 95–994; BMI 28.0
[2024-09-29 10:44] LABS: Bedside Glucose 412 mg/dL (74-106)
--- NOTE | 2024-09-29 11:08 | EX.ED.DYSGE1 ---
HPI <MARTIN Berrios - Last Filed: 09/29/24 17:43> History of Present Illness Chief Complaint: Hyperglycemia Narrative Narrative: Patient presenting today due to nausea and vomiting she has had since last night. Reports that she ate [employer] [place] for dinner and began having reflux which then caused her to feel nauseous and begin vomiting. She reports generalized abdominal discomfort. She has been seen here many times in the past for cyclic vomiting. She does admit to occasional marijuana use. Her blood pressure is elevated here, she has not had her antihypertensives today. Additionally, she is hyperglycemic here. She has a history of T2DM and last took insulin last night. She denies fevers, chills, hematemesis, diarrhea, blood in the stool, urinary symptoms. PFSH <MARTIN Berrios - Last Filed: 09/29/24 17:43> [facility] Medical History L5 vertebral fracture ESBL (extended spectrum beta-lactamase) producing bacteria infection Generalized weakness Candidiasis of breast Colitis Debility PTSD (post-traumatic stress disorder) Closed compression fracture of L3 vertebra Hypokalemia Colitis BiPAP (biphasic positive airway pressure) dependence Coronary artery disease On home oxygen therapy Rheumatoid arthritis Sleep apnea Smoker DVT (deep venous thrombosis) Seizures Amputation toe Psychiatric disorder Ischemic cardiomyopathy Diabetes type 2, uncontrolled Essential hypertension Substance abuse Alcohol abuse Depression Osteoporosis GERD (gastroesophageal reflux disease) Pulmonary embolism Myocardial infarct Pericardial effusion Hypoxemia Acute dyspnea Aftercare following surgery of the circulatory system Hx of fracture of humerus Toe amputee Hyperlipidemia CHF (congestive heart failure) CAD (coronary artery disease), [place] coronary artery Home Medications ?Medication ?Instructions ?Recorded ?Last Taken ?Type aspirin 81 mg capsule 81 mg PO DAILY heart health 08/10/22 09/06/24 History clopidogrel 75 mg tablet 75 mg PO DAILY anti platelet #30 02/03/23 09/06/24 Rx tabs pantoprazole 40 mg tablet,delayed 40 mg PO DAILY reflux 04/18/23 09/06/24 History release sacubitril 24 mg-valsartan 26 mg 1 tab PO BID . 30 days #60 tabs 05/07/23 09/06/24 Rx tablet (Entresto) atorvastatin 80 mg tablet 80 mg PO QHS cholesterol 12/29/23 09/06/24 History gabapentin 300 mg capsule 300 mg PO TID nerve pain 12/29/23 09/06/24 History insulin lispro 100 unit/mL 1 sliding scale dose subcut TIDCM 12/29/23 09/06/24 History subcutaneous half-unit pen glucose DIC 2%/RINKU 6%/LIDOC 2% IN 1 - 2 pump subdermal Q6H PRN FOR 02/14/24 09/06/24 History saltsable FEET cholecalciferol (vitamin D3) 1,250 1,250 mcg PO WE supplement 02/14/24 09/03/24 History mcg (50,000 unit) tablet spironolactone 25 mg tablet 25 mg PO DAILY water pill 30 days 02/17/24 09/06/24 Rx #0 tabs carvedilol 3.125 mg tablet 6.25 mg (2 x 3.125 mg) PO BID 02/19/24 09/06/24 Rx blood pressure 30 days #0 tabs ergocalciferol (vitamin D2) 1,250 1,250 mcg PO We@1000 #0 caps 02/19/24 09/03/24 Rx mcg (50,000 unit) capsule (Vitamin D2) insulin glargine 100 unit/mL (3 20 unit (0.2 mL) subcut QPM 30 02/19/24 09/06/24 Rx mL) subcutaneous pen (Lantus days #0 mL Solostar U-100 Insulin) escitalopram oxalate 20 mg tablet 20 mg PO DAILY depression 06/29/24 09/06/24 History furosemide 20 mg tablet 20 mg PO DAILY water pill 06/29/24 09/06/24 History midodrine 2.5 mg tablet 2.5 mg PO DAILY blood pressure 06/29/24 09/06/24 History polyethylene glycol 3350 17 17 g PO BID PRN constipation 06/29/24 Unknown History gram/dose oral powder (Miralax) sennosides 8.6 mg-docusate sodium 2 tab PO BID PRN constipation 06/29/24 Unknown History 50 mg tablet (Stimulant Laxative Plus) tizanidine 4 mg tablet 4 mg PO 3XD spasm 06/29/24 09/06/24 History acetaminophen 500 mg tablet 1,000 mg (2 x 500 mg) PO Q8 #0 tabs 09/02/24 09/06/24 Rx ondansetron 4 mg disintegrating 4 mg PO Q8H PRN PRN Nausea #10 tabs 09/05/24 Unknown Rx tablet acetaminophen 325 mg tablet 650 mg (2 x 325 mg) PO Q4H PRN PRN 09/16/24 Unknown Rx Fever, pain 1-1010 #0 tabs ertapenem 1 gram solution for 1 g IV Q24H 7 days #7 ea 09/16/24 Unknown Rx injection lidocaine 5 % topical patch 1 patch topical DAILY #30 ea 09/16/24 Unknown Rx ondansetron 4 mg disintegrating 4 mg PO Q6H PRN nausea and 09/16/24 Unknown Rx tablet vomiting #30 tabs oxycodone 5 mg tablet 5 mg PO Q4H PRN PRN pain 4-10 3 09/16/24 Unknown Rx days #14 tabs sennosides 8.6 mg-docusate sodium 2 tab PO BID #60 tabs 09/16/24 Unknown Rx 50 mg tablet (Stimulant Laxative Plus) metoclopramide HCl 10 mg tablet 10 mg PO Q6H PRN nausea and 09/21/24 Unknown Rx (Reglan) vomiting 5 days #20 tabs metoclopramide HCl 5 mg tablet 5 mg PO TID PRN PRN nausea and 09/29/24 Unknown Rx (Reglan) vomiting #14 tabs Allergy/AdvReac Type Severity Reaction Status Date / Time latex Allergy Hives Verified 09/29/24 10:17 Family History Mother Thyroid disorder Diabetes Hypertension Grandmother Diabetes Uncle Diabetes Aunt Diabetes Other Heart disease Surgical History History of cholecystectomy History of appendectomy History of cholecystectomy Social History household members: spouse and children housing: house Smoking Status: Current every day smoker tobacco type: cigarettes alcohol intake: never substance use type: marijuana what type of physical activity do you participate in: none do you feel safe at home: Yes ROS <MARTIN Berrios - Last Filed: 09/29/24 17:43> ROS ED Constitutional Constitutional ED: Denies chills or fever(s) Cardiovascular Cardiovascular: Denies chest pain Respiratory/Chest Respiratory/Chest: Denies dyspnea Gastrointestinal Gastrointestinal: Reports abdominal pain, nausea and vomiting; Denies constipation, diarrhea or melena Genitourinary Genitourinary ED: Denies dysuria, hematuria or urinary urgency Musculoskeletal Musculoskeletal: Denies arthralgias or myalgias Integumentary Denies rash Neurologic Neurologic: Denies weakness EXAM <MARTIN Berrios - Last Filed: 09/29/24 17:43> Physical Exam Const Vital Signs: 09/29/24 10:16 09/29/24 10:25 09/29/24 12:39 Temperature 98.1 F Temperature Source Oral Pulse Rate 119 H 115 H Respiratory Rate 24 H 22 H Respiratory Effort Normal Respiratory Pattern Normal Blood Pressure 182/93 H 180/102 H Blood Pressure Mean 122 128 Pulse Ox 95 97 Oxygen Delivery Method Room Air Room Air 09/29/24 13:52 09/29/24 15:11 09/29/24 15:15 Temperature Temperature Source Pulse Rate 112 H 110 H 110 H Respiratory Rate 20 H 17 14 Respiratory Effort Respiratory Pattern Blood Pressure 142/82 H Blood Pressure Mean 102 Pulse Ox 994 97 96 Oxygen Delivery Method Room Air 09/29/24 15:30 09/29/24 15:45 09/29/24 16:00 Temperature Temperature Source Pulse Rate 142 H 130 H 108 H Respiratory Rate 19 H 13 19 H Respiratory Effort Respiratory Pattern Blood Pressure 107/42 L Blood Pressure Mean 54 Pulse Ox 99 Oxygen Delivery Method 09/29/24 16:22 09/29/24 16:24 09/29/24 16:30 Temperature Temperature Source Pulse Rate 97 107 H 113 H Respiratory Rate 17 18 15 Respiratory Effort Respiratory Pattern Blood Pressure 149/80 H Blood Pressure Mean 99 Pulse Ox Oxygen Delivery Method 09/29/24 16:45 09/29/24 16:59 Temperature 97.7 F L Temperature Source Pulse Rate 142 H 133 H Respiratory Rate 17 15 Respiratory Effort Respiratory Pattern Blood Pressure 149/80 H Blood Pressure Mean 103 Pulse Ox 95 Oxygen Delivery Method Positive well nourished, well developed and no apparent distress General Appearance ED: well developed HEENT Reports normocephalic, head/scalp atraumatic and dry mucous membranes Mouth ED: Yes moist mucous membranes normal and Yes dry mucous membranes Mouth: dry mucous membranes Eyes PERRL and EOMs intact bilaterally Neck full ROM and supple Chest Wall inspection of chest normal Resp normal respiratory effort and clear to auscultation bilaterally Cardio regular rate and regular rhythm GI soft to palpation, non-tender, non-distended and no masses Back/Spine normal ROM and normal to inspection Extremity normal to inspection and full ROM Neuro oriented x3, CN's II-XII intact bilaterally, moves all extremities, no focal motor deficits and no sensory deficits noted Sensorium / Orientation: awake and alert Psych mental status grossly normal and thought process normal Skin no rashes or lesions noted and no wounds <Dr. Zack Card DO - Last Filed: 09/30/24 17:18> Physical Exam Const Vital Signs: 09/29/24 10:16 09/29/24 10:25 09/29/24 12:39 Temperature 98.1 F Temperature Source Oral Pulse Rate 119 H 115 H Respiratory Rate 24 H 22 H Respiratory Effort Normal Respiratory Pattern Normal Blood Pressure 182/93 H 180/102 H Blood Pressure Mean 122 128 Pulse Ox 95 97 Oxygen Delivery Method Room Air Room Air 09/29/24 13:52 09/29/24 15:11 09/29/24 15:15 Temperature Temperature Source Pulse Rate 112 H 110 H 110 H Respiratory Rate 20 H 17 14 Respiratory Effort Respiratory Pattern Blood Pressure 142/82 H Blood Pressure Mean 102 Pulse Ox 994 97 96 Oxygen Delivery Method Room Air 09/29/24 15:30 09/29/24 15:45 09/29/24 16:00 Temperature Temperature Source Pulse Rate 142 H 130 H 108 H Respiratory Rate 19 H 13 19 H Respiratory Effort Respiratory Pattern Blood Pressure 107/42 L Blood Pressure Mean 54 Pulse Ox 99 Oxygen Delivery Method 09/29/24 16:22 09/29/24 16:24 09/29/24 16:30 Temperature Temperature Source Pulse Rate 97 107 H 113 H Respiratory Rate 17 18 15 Respiratory Effort Respiratory Pattern Blood Pressure 149/80 H Blood Pressure Mean 99 Pulse Ox Oxygen Delivery Method 09/29/24 16:45 09/29/24 16:59 Temperature 97.7 F L Temperature Source Pulse Rate 142 H 133 H Respiratory Rate 17 15 Respiratory Effort Respiratory Pattern Blood Pressure 149/80 H Blood Pressure Mean 103 Pulse Ox 95 Oxygen Delivery Method MDM <MARTIN Berrios - Last Filed: 09/29/24 17:43> [facility] Narrative Medical decision making narrative: Patient presenting today due to nausea and vomiting she has had since yesterday evening. She has been seen many times in the past for similar symptoms. 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 She was here on 09/21 for nausea and vomiting, she was treated with antiemetics and IV fluids and reports that she was doing well up until last night. She requested Reglan, this was given IV as well as 2 L IV fluids and IV Pepcid. She reported still feeling nauseous and was given Thorazine/Benadryl. She has had multiple CT scans of her abdomen and pelvis in the past, she has no abdominal tenderness here, given she has a nonsurgical abdomen I do not feel that repeat imaging is indicated. She does have leukocytosis at 15.7, suspect that this could be reactive given her vomiting. Her CMP is largely unremarkable, UA negative for UTI. Initially was hyperglycemic at 442, after IV fluids and insulin she is now 382. No evidence of DKA. Acetone negative, anion gap 15. On reexamination, she had improvement of her symptoms and has not had any vomiting here, she is tolerating p.o. fluids but did request to be given an additional antiemetic prior to being discharged and was given IM Phenergan. Patient feeling improved and discharged home in stable condition. Recommended following up with PCP in the next 5 to 7 days. Return instructions discussed. Recommended marijuana cessation. Lab Data Attestation: I reviewed the patient's lab results. Labs: Laboratory Results - last 24 hr 09/29/24 09/29/24 09/29/24 10:22 11:45 12:28 WBC 15.7 H RBC 4.62 Hgb 12.9 Hct 38.0 MCV 82.3 MCH 27.9 MCHC 33.9 RDW Std Deviation 39.4 RDW Coeff of [place] 13.2 Plt Count 313 MPV 9.6 Immature Gran % (Auto) 0.600 Neut % (Auto) 89.8 H Lymph % (Auto) 5.8 L [place] % (Auto) 3.3 Eos % (Auto) 0.1 Baso % (Auto) 0.4 Absolute Neuts (auto) 14.1 H Absolute Lymphs (auto) 0.91 Nucleated RBC % 0 Sodium 135 Potassium 3.5 Chloride 97 L Carbon Dioxide 23.7 Anion Gap 15 BUN 14 Creatinine 0.68 L Estim Creat Clear Calc 105.00 Est GFR (MDRD) Non-Af 104 BUN/Creatinine Ratio 20.5 H Glucose 442 H Calcium 9.5 Total Bilirubin 0.90 AST 19 ALT 12 Alkaline Phosphatase 179 H Total Protein 7.5 Albumin 3.7 Globulin 3.8 Albumin/Globulin Ratio 1.0 Lipase 30 b-Hydroxybutyric mmol/L 1.3 Urine Color Yellow Urine Clarity Clear Urine pH 7.0 Ur Specific [place] 1.010 Urine Protein 100 H Urine Glucose (UA) 1000 H Urine Ketones 15 H Urine Occult Blood 25 H Urine Nitrite Negative Urine Bilirubin Negative Urine Urobilinogen Normal Ur Leukocyte Esterase Negative Urine RBC 0-5 SEEN Urine WBC 0-5 SEEN Ur Squamous Epith Cells 0-5 SEEN Urine Bacteria 0 SEEN Urine Mucus 0 SEEN POC Glucose 412 H 09/29/24 09/29/24 15:30 16:26 WBC RBC Hgb Hct MCV MCH MCHC RDW Std Deviation RDW Coeff of [place] Plt Count MPV Immature Gran % (Auto) Neut % (Auto) Lymph % (Auto) [place] % (Auto) Eos % (Auto) Baso % (Auto) Absolute Neuts (auto) Absolute Lymphs (auto) Nucleated RBC % Sodium Potassium Chloride Carbon Dioxide Anion Gap BUN Creatinine Estim Creat Clear Calc Est GFR (MDRD) Non-Af BUN/Creatinine Ratio Glucose Calcium Total Bilirubin AST ALT Alkaline Phosphatase Total Protein Albumin Globulin Albumin/Globulin Ratio Lipase b-Hydroxybutyric mmol/L Urine Color Urine Clarity Urine pH Ur Specific [place] Urine Protein Urine Glucose (UA) Urine Ketones Urine Occult Blood Urine Nitrite Urine Bilirubin Urine Urobilinogen Ur Leukocyte Esterase Urine RBC Urine WBC Ur Squamous Epith Cells Urine Bacteria Urine Mucus POC Glucose 412 H 382 H <Dr. Zack Card, DO - Last Filed: 09/30/24 17:18> [facility] Lab Data Labs: Laboratory Results - last 24 hr 09/29/24 09/29/24 09/29/24 10:22 11:45 12:28 WBC 15.7 H RBC 4.62 Hgb 12.9 Hct 38.0 MCV 82.3 MCH 27.9 MCHC 33.9 RDW Std Deviation 39.4 RDW Coeff of [place] 13.2 Plt Count 313 MPV 9.6 Immature Gran % (Auto) 0.600 Neut % (Auto) 89.8 H Lymph % (Auto) 5.8 L [place] % (Auto) 3.3 Eos % (Auto) 0.1 Baso % (Auto) 0.4 Absolute Neuts (auto) 14.1 H Absolute Lymphs (auto) 0.91 Nucleated RBC % 0 Sodium 135 Potassium 3.5 Chloride 97 L Carbon Dioxide 23.7 Anion Gap 15 BUN 14 Creatinine 0.68 L Estim Creat Clear Calc 105.00 Est GFR (MDRD) Non-Af 104 BUN/Creatinine Ratio 20.5 H Glucose 442 H Calcium 9.5 Total Bilirubin 0.90 AST 19 ALT 12 Alkaline Phosphatase 179 H Total Protein 7.5 Albumin 3.7 Globulin 3.8 Albumin/Globulin Ratio 1.0 Lipase 30 b-Hydroxybutyric mmol/L 1.3 Urine Color Yellow Urine Clarity Clear Urine pH 7.0 Ur Specific [place] 1.010 Urine Protein 100 H Urine Glucose (UA) 1000 H Urine Ketones 15 H Urine Occult Blood 25 H Urine Nitrite Negative Urine Bilirubin Negative Urine Urobilinogen Normal Ur Leukocyte Esterase Negative Urine RBC 0-5 SEEN Urine WBC 0-5 SEEN Ur Squamous Epith Cells 0-5 SEEN Urine Bacteria 0 SEEN Urine Mucus 0 SEEN POC Glucose 412 H 09/29/24 09/29/24 15:30 16:26 WBC RBC Hgb Hct MCV MCH MCHC RDW Std Deviation RDW Coeff of [place] Plt Count MPV Immature Gran % (Auto) Neut % (Auto) Lymph % (Auto) [place] % (Auto) Eos % (Auto) Baso % (Auto) Absolute Neuts (auto) Absolute Lymphs (auto) Nucleated RBC % Sodium Potassium Chloride Carbon Dioxide Anion Gap BUN Creatinine Estim Creat Clear Calc Est GFR (MDRD) Non-Af BUN/Creatinine Ratio Glucose Calcium Total Bilirubin AST ALT Alkaline Phosphatase Total Protein Albumin Globulin Albumin/Globulin Ratio Lipase b-Hydroxybutyric mmol/L Urine Color Urine Clarity Urine pH Ur Specific [place] Urine Protein Urine Glucose (UA) Urine Ketones Urine Occult Blood Urine Nitrite Urine Bilirubin Urine Urobilinogen Ur Leukocyte Esterase Urine RBC Urine WBC Ur Squamous Epith Cells Urine Bacteria Urine Mucus POC Glucose 412 H 382 H Treatment and Re-Evaluation :: Attending note: I have personally performed a face to face assessment of the patient and have reviewed the JANICE note. I personally made/approved the management plan and take responsibility for the patient management. I performed a substantive portion of the visit including all aspects of the following. My jones findings include: Worsening vomiting yesterday history of diabetes. History of marijuana use however states last used 3 weeks ago. Elevated blood glucose at home. Exam alert nontoxic no distress. Patient given fluids blood glucose was 412. DKA rule out sent. she initially requested Reglan. Additional Benadryl Thorazine to help with symptoms. No emesis. Labs glucose was 42 Negative. She Had Hydroxybutyrate 1.3. Likely from Vomiting. Negative Gap Therefore No DKA. Clinically was feeling better rest edition no nausea medicines prior to discharge given Phenergan. She was given 15 mg of insulin. EKG at 1546 sinus rate of [address] or T wave changes. Heart rate improved on reevaluation. Tolerating oral fluids. Discharge Plan Triage Chief Complaint: Hyperglycemia ED Midlevel Provider: Nina Richardson ED Provider: Zack Card Dx/Rx/DC Orders Clinical Impression: Vomiting, History of marijuana use, Hyperglycemia due to diabetes mellitus Instructions: Understanding Marijuana Abuse, ED Diabetic Hyperglycemia, ED Vomiting (Adult) Prescriptions: New metoclopramide HCl [Reglan] 5 mg tablet 5 mg PO TID PRN PRN (Reason: nausea and vomiting) Qty: 14 0RF No Action pantoprazole 40 mg tablet,delayed release (DR/EC) 40 mg PO DAILY aspirin 81 mg Capsule 81 mg PO DAILY clopidogrel 75 mg Tablet 75 mg PO DAILY Qty: 30 0RF Patient Comments: patient stated pretty sure I still take that sacubitril-valsartan [Entresto] 24-26 mg Tablet 1 tab PO BID 30 Days Qty: 60 0RF insulin lispro 100 unit/mL insulin pen, half-unit 1 sliding scale dose subcut TIDCM Patient Comments: patient does not know sliding scale atorvastatin 80 mg tablet 80 mg PO QHS gabapentin 300 mg Capsule 300 mg PO TID tizanidine 4 mg tablet 4 mg PO 3XD midodrine 2.5 mg tablet 2.5 mg PO DAILY furosemide 20 mg tablet 20 mg PO DAILY escitalopram oxalate 20 mg tablet 20 mg PO DAILY sennosides-docusate sodium [Stimulant Laxative Plus] 8.6-50 mg Tablet 2 tab PO BID PRN (Reason: constipation) polyethylene glycol 3350 [Miralax] 17 gram/dose powder 17 g PO BID PRN (Reason: constipation) acetaminophen 500 mg Tablet 1,000 mg PO Q8 Qty: 0 0RF ertapenem 1 gram recon soln 1 g IV Q24H 7 Days Qty: 7 0RF Rx Instructions: Dx: emphysematous cystitis. Weekly bmp, LFT, and cbc while on iv abx. Fax to [phone]. acetaminophen 325 mg Tablet 650 mg PO Q4H PRN PRN (Reason: Fever, pain 1-10) Qty: 0 0RF oxycodone 5 mg Tablet 5 mg PO Q4H PRN PRN (Reason: pain 4-10) 3 Days Qty: 14 0RF sennosides-docusate sodium [Stimulant Laxative Plus] 8.6-50 mg Tablet 2 tab PO BID Qty: 60 0RF lidocaine 5 % Adhesive Patch,Medicated 1 patch topical DAILY Qty: 30 0RF Protocol: *Topical Application Instructions APPLICATION INSTRUCTIONS: to lower back ondansetron 4 mg tablet,disintegrating 4 mg PO Q6H PRN (Reason: nausea and vomiting) Qty: 30 0RF metoclopramide HCl [Reglan] 10 mg tablet 10 mg PO Q6H PRN (Reason: nausea and vomiting) 5 Days Qty: 20 0RF cholecalciferol (vitamin D3) 1,250 mcg (50,000 unit) tablet 1,250 mcg PO WE DIC 2%/RINKU 6%/LIDOC 2% IN saltsable cream 1 - 2 pump subdermal Q6H PRN (Reason: FOR FEET) spironolactone 25 mg tablet 25 mg PO DAILY 30 Days Qty: 0 0RF ergocalciferol (vitamin D2) [Vitamin D2] 1,250 mcg (50,000 unit) Capsule 1,250 mcg PO We@1000 Qty: 0 0RF carvedilol 3.125 mg tablet 6.25 mg PO BID 30 Days Qty: 0 0RF Rx Instructions: Hold for heart less than 50 or systolic blood pressure less than 100 mmHg. insulin glargine [Lantus Solostar U-100 Insulin] 100 unit/mL (3 mL) insulin pen 20 unit subcut QPM 30 Days Qty: 0 0RF Rx Instructions: Hold if glucose less than 130 mg/dl ondansetron 4 mg tablet,disintegrating 4 mg PO Q8H PRN PRN (Reason: Nausea) Qty: 10 0RF Primary Care Provider: Zohreh Pratt [facility] Referrals: Friend,DO Jeevan [Med Staff - Active Staff] - 1-2 Weeks Zohreh Pratt, EMERGENCY ROOM CLINICIAN-C [Primary Care Provider] - 1-2 Weeks Activity Restrictions/Additional Instructions: Workup negative for DKA. continue toAvoid marijuana use. Use your nausea medicines as needed. Follow-up was given. Print Language: Portuguese Disposition Disposition: Home, Self Care Discharge Date/Time: 09/29/24 17:17
[2024-09-29] MEDS: Metoclopramide 10 MG/2 ML Vial IV (11:36)
[2024-09-29] MEDS: 0.9% Normal Saline (1000mL) 1,000 ML 999 ML IV ×2 (11:36→13:51)
[2024-09-29] MEDS: Dicyclomine 20 MG/2 ML Vial IM (11:36)
[2024-09-29 11:52] LABS: Bacteria 0 SEEN /hpf (None Seen); Mucous, Urine 0 SEEN /hpf (<or=2+)
[2024-09-29 11:54] LABS: Color, Urine Yellow (Yellow); Glucose, Dipstick 1000 mg/dl (Normal); Ketone-Dipstick 15 mg/dl (Negative); Leukocyte Esterase-Dipstick Negative /ul (Negative); Nitrite-Dipstick Negative (Negative); Occult Blood-Urine 25 /ul (Negative); Protein-Dipstick 100 mg/dl (Negative); Urine Bilirubin Dipstick Negative (Negative); Urine Clarity Clear (Clear); Urine Urobilinogen Normal (Normal)
[2024-09-29 12:00] LABS: Red Blood Cells-Urine 0-5 SEEN /hpf (0-5); Squamous Epithelial Cells - UA 0-5 SEEN /hpf (5-10); White Blood Cells 0-5 SEEN /hpf (0-5)
[2024-09-29] MEDS: Famotidine 200 MG/20 ML MDV 20 MG in 0.9% Normal Saline (Pres. free 8 ML 300 MG IV (13:03)
[2024-09-29 13:09] LABS: AST(SGOT) 19 U/L (<=31); Alanine Aminotransfer ALT/SGPT 12 U/L (<=34); Albumin, Serum 3.7 g/dL (3.5-5.0); Alkaline Phosphatase 179 U/L (35-104); Anion Gap 15 (5-15); BUN 14 mg/dL (4-19); BUN/Creat Ratio 20.5 RATIO (10-20); Calcium,Total 9.5 mg/dL (7.6-11.0); Carbon Dioxide 23.7 mmol/L (21.0-32.0); Chloride 97 mmol/L (98-108); Creatinine, Serum 0.68 mg/dL (0.70-1.20); EST Glomerular Filtration Rate 104 (>60); Globulin 3.8 g/dL (2.2-4.2); Glucose 442 mg/dL (70-99); Lipase 30 U/L (13-75); Potassium 3.5 mmol/L (3.3-5.1); Protein, Total 7.5 g/dL (5.9-8.4); Sodium Level 135 mmol/L (133-145)
[2024-09-29] MEDS: DiphenhydrAMINE 25 MG, ChlorproMAZINE IM 50 MG in 0.9% Normal Saline (250mL Bag) 250 ML 252.5 MG IV (13:14)
[2024-09-29 13:18] LABS: Absolute Lymphocyte Count 0.91 X10^3/uL (0.83-4.51); Absolute Neutrophil Count 14.1 X10^3/uL (2.0-7.7); Basophil# 0.07 X10^3/uL; Basophil% 0.4 % (0-1); Eosinophil# 0.02 X10^3/uL; Eosinophils% 0.1 % (0-5); Hemoglobin 12.9 g/dL (12.0-15.0); Lymphocyte # 0.91 X10^3/ul (0.83-4.51); Lymphocyte % 5.8 % (19-41); Mean Corp Hgb Conc 33.9 g/dL (32-36); Mean Corpuscular Hgb 27.9 pg (27.0-32.0); Mean Corpuscular Volume 82.3 fL (81-99); Mean Platelet Vol. 9.6 fl (6.2-12.0); Monocyte# 0.51 X10^3/uL; Monocyte% 3.3 % (0-10); NRBC Flagged by Analyzer 0 % (0-5); Neutrophil # 14.08 X10^3/uL (2.7-7.7); Neutrophil % 89.8 % (47-70); Platelet Count 313 K/mm3 (150-450); RBC Distribution Width CV 13.2 % (11.6-14.6); RBC Distribution Width SD 39.4 fl (35.1-43.9); Red Blood Count 4.62 M/mm3 (4.2-5.4); White Blood Count 15.7 K/mm3 (4.4-11.0)
[2024-09-29 13:40] LABS: BETA-HYDROXYBUTYRATE 1.3 mmol/L (0.0-0.3)
[2024-09-29] MEDS: Insulin Lispro 100 UNIT/ML INSULN.PEN 15 UNIT SC (15:32)
--- NOTE | 2024-09-29 15:43 | EKG12_ITS ---
Test Reason : ARRYTH Blood Pressure : */* mmHG Vent. Rate : 129 BPM Atrial Rate : 129 BPM P-R Int : 130 ms QRS Dur : 120 ms QT Int : 318 ms P-R-T Axes : 48 -47 89 degrees QTcB Int : 465 ms Sinus tachycardia Left axis deviation Minimal voltage criteria for LVH, may be normal variant ( Brian product ) Septal infarct (cited on or before 26-Aug-2021) Abnormal ECG Confirmed by KIERSTEN HERNANDEZ, RICHY ([id number]), scientific editor RIKY HOANG ([id number]) on 10/01/2024 11:48:54 AM Referred By: Confirmed By: RICHY BURCH MD
[2024-09-29 15:50] LABS: Bedside Glucose 412 mg/dL (74-106)
[2024-09-29 16:43] LABS: Bedside Glucose 382 mg/dL (74-106)
[2024-09-29] MEDS: proMETHazine 25 MG/ML Syringe 12.5 MG IM (16:43)
== END 2024-09-29 17:17 | disposition home or self-care (01) ==
PROVIDERS: Physician Assistant; Emergency Provider Emergency Medicine; PCP Nurse Practitioner Family; Visit Provider Emergency Medicine
DX: E11.65 Type 2 diabetes mellitus with hyperglycemia (principal); I11.0 Hypertensive heart disease with heart failure; I50.9 Heart failure, unspecified; Z79.4 Long term (current) use of insulin; I25.10 Atherosclerotic heart disease of native coronary artery without angina pectoris; F17.210 Nicotine dependence, cigarettes, uncomplicated; R11.10 Vomiting, unspecified; E78.5 Hyperlipidemia, unspecified; Z86.59 Personal history of other mental and behavioral disorders; Z99.81 Dependence on supplemental oxygen; I25.2 Old myocardial infarction; Z79.82 Long term (current) use of aspirin; Z79.02 Long term (current) use of antithrombotics/antiplatelets; Z79.899 Other long term (current) drug therapy; K21.9 Gastro-esophageal reflux disease without esophagitis; F32.A Depression, unspecified; Z90.49 Acquired absence of other specified parts of digestive tract
CPT/HCPCS: 36415; 80053; 81001; 82010; 82962; 83690; 85025; 93005; 96361; 96372; 96374; 99285

== ENCOUNTER 2024-12-12 13:08 | Emergency (ER) | payer MEDICAID, SELFPAY ==
[2024-12-12 13:08] VITALS: BP 149/95; PULSE 106; RESP 14; TEMP 36.3; O2SAT 98
--- NOTE | 2024-12-12 14:10 | RAD_ITS ---
PROCEDURE: ANKLE MIN 3 VIEWS; FOOT MIN 3 VIEWS 12/12/2024 REASON FOR EXAM: INJURY TECHNIQUE: ANKLE MIN 3 VIEWS; FOOT MIN 3 VIEWS COMPARISON: None. FINDINGS: No acute fracture or dislocation identified. Alignment is maintained on these nonweightbearing radiographs. Ankle mortise is congruent. Marked diffuse qualitative osteopenia. Surgical amputation of the 2nd digit at the metatarsophalangeal joint. No osseous erosion/destruction or periosteal reaction appreciated. Generalized soft tissue swelling about the ankle and foot. No subcutaneous emphysema or radiopaque foreign body. RAD/Foot min 3 Views IMPRESSION: 1. No evidence of acute fracture or dislocation. 2. Surgical amputation of the 2nd digit at the MTP joint. 3. Generalized soft tissue swelling/edema about the ankle and foot. Reading Location: [id number]
--- NOTE | 2024-12-12 14:25 | RAD_ITS ---
PROCEDURE: ANKLE MIN 3 VIEWS; FOOT MIN 3 VIEWS 12/12/2024 REASON FOR EXAM: INJURY TECHNIQUE: ANKLE MIN 3 VIEWS; FOOT MIN 3 VIEWS COMPARISON: None. FINDINGS: No acute fracture or dislocation identified. Alignment is maintained on these nonweightbearing radiographs. Ankle mortise is congruent. Marked diffuse qualitative osteopenia. Surgical amputation of the 2nd digit at the metatarsophalangeal joint. No osseous erosion/destruction or periosteal reaction appreciated. Generalized soft tissue swelling about the ankle and foot. No subcutaneous emphysema or radiopaque foreign body. RAD/Ankle min 3 Views IMPRESSION: 1. No evidence of acute fracture or dislocation. 2. Surgical amputation of the 2nd digit at the MTP joint. 3. Generalized soft tissue swelling/edema about the ankle and foot. Reading Location: [id number]
--- NOTE | 2024-12-12 16:08 | EX.ED.GENINJ ---
HPI <Dr. Derek Paniagua MD - Last Filed: 12/12/24 22:23> History of Present Illness Chief Complaint: Fall <MARTIN Reyes - Last Filed: 12/12/24 18:21> Narrative Narrative: 54-year-old female with PMH of HTN, HLD, DM 2, CAD, peripheral vascular disease with right leg stent presents with bilateral leg pain over the last few weeks. A few weeks ago she noticed a wound on her right posterior ankle. The wound was there prior to a mechanical fall that she had. She states she did not have any injuries from the fall and was able to stand up and ambulate but since then has had pain in the entirety of both legs. She has cramping pain at night. She has neuropathy and takes gabapentin and Tylenol but it is not helping. She has not had much food available to eat and tried taking her Lantus 27 units in the morning and 20 units at night but bottomed out twice so she stopped taking all of her insulin for at least a week (Lantus and NovoLog). She has not checked her blood sugar. She presents due to the pain in both legs. She has a history of right second toe amputation due to peripheral arterial disease and left partial foot amputation due to an infection. [facility] <Dr. Derek Paniagua MD - Last Filed: 12/12/24 22:23> [facility] Medical History L5 vertebral fracture ESBL (extended spectrum beta-lactamase) producing bacteria infection Generalized weakness Candidiasis of breast Colitis Debility PTSD (post-traumatic stress disorder) Closed compression fracture of L3 vertebra Hypokalemia Colitis BiPAP (biphasic positive airway pressure) dependence Coronary artery disease On home oxygen therapy Rheumatoid arthritis Sleep apnea Smoker DVT (deep venous thrombosis) Seizures Amputation toe Psychiatric disorder Ischemic cardiomyopathy Diabetes type 2, uncontrolled Essential hypertension Substance abuse Alcohol abuse Depression Osteoporosis GERD (gastroesophageal reflux disease) Pulmonary embolism Myocardial infarct Pericardial effusion Hypoxemia Acute dyspnea Aftercare following surgery of the circulatory system Hx of fracture of humerus Toe amputee Hyperlipidemia CHF (congestive heart failure) CAD (coronary artery disease), [place] coronary artery Home Medications ?Medication ?Instructions ?Recorded ?Last Taken ?Type aspirin 81 mg capsule 81 mg PO DAILY heart health 08/10/22 09/06/24 History clopidogrel 75 mg tablet 75 mg PO DAILY anti platelet #30 02/03/23 09/06/24 Rx tabs pantoprazole 40 mg tablet,delayed 40 mg PO DAILY reflux 04/18/23 09/06/24 History release sacubitril 24 mg-valsartan 26 mg 1 tab PO BID . 30 days #60 tabs 05/07/23 09/06/24 Rx tablet (Entresto) atorvastatin 80 mg tablet 80 mg PO QHS cholesterol 12/29/23 09/06/24 History gabapentin 300 mg capsule 300 mg PO TID nerve pain 12/29/23 09/06/24 History insulin lispro 100 unit/mL 1 sliding scale dose subcut TIDCM 12/29/23 09/06/24 History subcutaneous half-unit pen glucose DIC 2%/RINKU 6%/LIDOC 2% IN 1 - 2 pump subdermal Q6H PRN FOR 02/14/24 09/06/24 History saltsable FEET cholecalciferol (vitamin D3) 1,250 1,250 mcg PO WE supplement 02/14/24 09/03/24 History mcg (50,000 unit) tablet spironolactone 25 mg tablet 25 mg PO DAILY water pill 30 days 02/17/24 09/06/24 Rx #0 tabs carvedilol 3.125 mg tablet 6.25 mg (2 x 3.125 mg) PO BID 02/19/24 09/06/24 Rx blood pressure 30 days #0 tabs ergocalciferol (vitamin D2) 1,250 1,250 mcg PO We@1000 #0 caps 02/19/24 09/03/24 Rx mcg (50,000 unit) capsule (Vitamin D2) insulin glargine 100 unit/mL (3 20 unit (0.2 mL) subcut QPM 30 02/19/24 09/06/24 Rx mL) subcutaneous pen (Lantus days #0 mL Solostar U-100 Insulin) escitalopram oxalate 20 mg tablet 20 mg PO DAILY depression 06/29/24 09/06/24 History furosemide 20 mg tablet 20 mg PO DAILY water pill 06/29/24 09/06/24 History midodrine 2.5 mg tablet 2.5 mg PO DAILY blood pressure 06/29/24 09/06/24 History polyethylene glycol 3350 17 17 g PO BID PRN constipation 06/29/24 Unknown History gram/dose oral powder (Miralax) sennosides 8.6 mg-docusate sodium 2 tab PO BID PRN constipation 06/29/24 Unknown History 50 mg tablet (Stimulant Laxative Plus) tizanidine 4 mg tablet 4 mg PO 3XD spasm 06/29/24 09/06/24 History acetaminophen 500 mg tablet 1,000 mg (2 x 500 mg) PO Q8 #0 tabs 09/02/24 09/06/24 Rx ondansetron 4 mg disintegrating 4 mg PO Q8H PRN PRN Nausea #10 tabs 09/05/24 Unknown Rx tablet acetaminophen 325 mg tablet 650 mg (2 x 325 mg) PO Q4H PRN PRN 09/16/24 Unknown Rx Fever, pain 1-03/13 #0 tabs ertapenem 1 gram solution for 1 g IV Q24H 7 days #7 ea 09/16/24 Unknown Rx injection lidocaine 5 % topical patch 1 patch topical DAILY #30 ea 09/16/24 Unknown Rx ondansetron 4 mg disintegrating 4 mg PO Q6H PRN nausea and 09/16/24 Unknown Rx tablet vomiting #30 tabs oxycodone 5 mg tablet 5 mg PO Q4H PRN PRN pain 4-10 3 09/16/24 Unknown Rx days #14 tabs sennosides 8.6 mg-docusate sodium 2 tab PO BID #60 tabs 09/16/24 Unknown Rx 50 mg tablet (Stimulant Laxative Plus) metoclopramide HCl 10 mg tablet 10 mg PO Q6H PRN nausea and 09/21/24 Unknown Rx (Reglan) vomiting 5 days #20 tabs metoclopramide HCl 5 mg tablet 5 mg PO TID PRN PRN nausea and 09/29/24 Unknown Rx (Reglan) vomiting #14 tabs Allergy/AdvReac Type Severity Reaction Status Date / Time latex Allergy Hives Verified 09/29/24 10:17 Family History Mother Thyroid disorder Diabetes Hypertension Grandmother Diabetes Uncle Diabetes Aunt Diabetes Other Heart disease Surgical History History of cholecystectomy History of appendectomy History of cholecystectomy Social History household members: spouse and children housing: house Smoking Status: Current every day smoker tobacco type: cigarettes alcohol intake: never substance use type: marijuana what type of physical activity do you participate in: none do you feel safe at home: Yes ROS <MARTIN Reyes - Last Filed: 12/12/24 18:21> ROS ED ROS Narrative Constitutional: Negative for fever, chills, malaise. Neuro: Negative for motor dysfunction. Skin: Positive for wound. Musc: Negative for joint swelling, trauma. EXAM <Dr. Derek Paniagua MD - Last Filed: 12/12/24 22:23> Physical Exam Const Vital Signs: 12/12/24 13:08 12/12/24 16:06 12/12/24 17:23 Temperature 97.3 F L Temperature Source Temporal Pulse Rate 106 H 101 H Respiratory Rate 14 18 Blood Pressure 149/95 H 164/97 H Blood Pressure Mean 113 119 Pulse Ox 98 98 Oxygen Delivery Method Room Air Room Air Room Air 12/12/24 18:17 Temperature 98.5 F Temperature Source Pulse Rate 97 Respiratory Rate 18 Blood Pressure 152/91 H Blood Pressure Mean 111 Pulse Ox 98 Oxygen Delivery Method <MARTIN Reyes - Last Filed: 12/12/24 18:21> Physical Exam Narrative Exam Narrative: CONST: Patient sitting in no acute distress. EYES: Normal inspection. NECK: Normal inspection. RESP: No respiratory distress, CTAB. CVS: Regular rate and rhythm, no murmur, no gallop. SKIN: Color normal, no rash, warm, dry, intact. EXTREMITIES: Right lower extremity is cold second toe amputation. There is a dime sized superficial ulceration on the posterior ankle with yellow granulation tissue. There is no erythema, warmth, fluctuance, crepitus or drainage. Left lower extremity has had all toes amputated. There is 1+ pitting edema of both ankles which is symmetric. There are no signs of infection. She did not have palpable pulses but capillary refill is normal. With Doppler there is a biphasic right PT pulse, and with Doppler there is biphasic left PT and DP pulses. NEURO: Alert and answering questions appropriately. PSYCH: Normal affect. Const Vital Signs: 12/12/24 13:08 12/12/24 16:06 12/12/24 17:23 Temperature 97.3 F L Temperature Source Temporal Pulse Rate 106 H 101 H Respiratory Rate 14 18 Blood Pressure 149/95 H 164/97 H Blood Pressure Mean 113 119 Pulse Ox 98 98 Oxygen Delivery Method Room Air Room Air Room Air 12/12/24 18:17 Temperature 98.5 F Temperature Source Pulse Rate 97 Respiratory Rate 18 Blood Pressure 152/91 H Blood Pressure Mean 111 Pulse Ox 98 Oxygen Delivery Method MDM <Dr. Derek Paniagua MD - Last Filed: 12/12/24 22:23> [facility] MDM Narrative Medical decision making narrative: I have personally performed a face to face assessment of the patient and have reviewed the JANICE Note. I performed a substantive portion of the visit including all aspects of the following. My jones findings include: History is [ ] Exam is [ ] Medical Decision Making [ ] Other additions or changes: [None] Lab Data Labs: Laboratory Results - last 24 hr 12/12/24 12/12/24 16:16 17:00 Sodium 132 L Potassium 3.9 Chloride 98 Carbon Dioxide 23.3 Anion Gap 11 BUN 6 Creatinine 0.66 L Est GFR (MDRD) Non-Af 105 BUN/Creatinine Ratio 8.9 L Glucose 327 H Calcium 9.2 POC Glucose 346 H Radiography Chest X-Ray - ED: Read by ED Physician (Three-view x-ray of the ankle and three-view x-ray of the foot independently interpreted by me at 1608. Patient has spurring of the calcaneus. There is significant atherosclerotic disease with calcification of the dorsalis pedal artery. There is some degenerative changes noted. There are some mi) Diagnostic Testing: Clinical Impression(s) from Imaging Studies Foot X-Ray 12/12/24 14:10 IMPRESSION: 1. No evidence of acute fracture or dislocation. 2. Surgical amputation of the 2nd digit at the MTP joint. 3. Generalized soft tissue swelling/edema about the ankle and foot. Reading Location: [facility] Ankle X-Ray 12/12/24 14:25 IMPRESSION: 1. No evidence of acute fracture or dislocation. 2. Surgical amputation of the 2nd digit at the MTP joint. 3. Generalized soft tissue swelling/edema about the ankle and foot. Reading Location: [facility] <MARTIN Reyes - Last Filed: 12/12/24 18:21> [facility] MDM Narrative Medical decision making narrative: 54-year-old female has diabetes, neuropathy, and peripheral arterial disease. She presents due to bilateral leg pain. She is cannot take her insulin because she is having intermittent vomiting and states she has had decreased p.o. intake. She appears well and nontoxic. She is tachycardic at 106 but is also crying and agitated so may be related to this. She does not look ill or septic. She has had old amputations of all of the left toes and the right second toe. There is a small wound on the right posterior ankle but does not appear infected. There are no palpable pulses but there are biphasic pulses present with Doppler. There is symmetric edema both ankles. There is no signs of infection or acute ischemic limb. Her fingerstick glucose was over 300s so she was given IV fluids and a BMP ordered. Glucose is 327 with normal CO2 and gap ruling out DKA. There is pseudohyponatremia at 132. She was given 8 units of insulin. A protocol right ankle and foot x-ray were obtained and are negative. There are calcifications in her arteries consistent with her PAD. I think her pain is from neuropathy as it symmetric, cramping, worse at night and there is no other abnormalities on exam. She was given Toradol here but I discussed she needs to see her primary care doctor for further evaluation of this problem. She takes gabapentin 300 mg 3 times daily prescribed by [facility]. She was discharged in stable condition. I have personally performed a face to face assessment of the patient and have reviewed the JANICE Note. I performed a substantive portion of the visit including all aspects of the following. My jones findings include: History is remarkable for history of neuropathy due to diabetes and PAD. Patient had stent right lower extremity by Dr. Ng. She presents because of pain. She states she is vomiting unable to take her meds or if she does take her meds she not able to keep them down. She denies fever, chills night sweats. She denies pallor to her legs. She denies numbness of her legs. She denies having difficulty move her toes. There is no history of trauma. Exam is patient has stigmata of peripheral arterial disease. There is no palpable DP or PT pulse either side. There is biphasic PT flow on the right and no flow DP on the right. There is biphasic flow PT and DP on the left. Patient complains of pain to light touch of her foot. There is some edema on the dorsal surface and ankle. There is no evidence of infection. There is no evidence of acute ischemia. Capillary refill is normal. Toes appear normal. Medical Decision Making suspect patient's pain is due to a neuropathy from her diabetes and PAD. Also due to the fact that she is not able to take her medicines or vomits her medicine. X-ray was obtained per nurse protocol. These were independent reviewed interpreted by me as negative for any acute pathology. Other additions or changes: [None] Lab Data Labs: Laboratory Results - last 24 hr 12/12/24 12/12/24 16:16 17:00 Sodium 132 L Potassium 3.9 Chloride 98 Carbon Dioxide 23.3 Anion Gap 11 BUN 6 Creatinine 0.66 L Est GFR (MDRD) Non-Af 105 BUN/Creatinine Ratio 8.9 L Glucose 327 H Calcium 9.2 POC Glucose 346 H Radiography Diagnostic Testing: Clinical Impression(s) from Imaging Studies Foot X-Ray 12/12/24 14:10 IMPRESSION: 1. No evidence of acute fracture or dislocation. 2. Surgical amputation of the 2nd digit at the MTP joint. 3. Generalized soft tissue swelling/edema about the ankle and foot. Reading Location: [facility] Ankle X-Ray 12/12/24 14:25 IMPRESSION: 1. No evidence of acute fracture or dislocation. 2. Surgical amputation of the 2nd digit at the MTP joint. 3. Generalized soft tissue swelling/edema about the ankle and foot. Reading Location: [facility] Discharge Plan Triage Chief Complaint: Fall ED Midlevel Provider: Vianey Galeano ED Provider: Derek Paniagua Dx/Rx/DC Orders Clinical Impression: Bilateral leg pain, History of neuropathy, Hyperglycemia due to type 2 diabetes mellitus, PAD (peripheral artery disease), Neuropathy of right lower extremity, Neuropathy of left lower extremity Instructions: ED Diabetic Hyperglycemia, ED Neuropathy, Peripheral Prescriptions: No Action pantoprazole 40 mg tablet,delayed release (DR/EC) 40 mg PO DAILY aspirin 81 mg Capsule 81 mg PO DAILY clopidogrel 75 mg Tablet 75 mg PO DAILY Qty: 30 0RF Patient Comments: patient stated pretty sure I still take that sacubitril-valsartan [Entresto] 24-26 mg Tablet 1 tab PO BID 30 Days Qty: 60 0RF insulin lispro 100 unit/mL insulin pen, half-unit 1 sliding scale dose subcut TIDCM Patient Comments: patient does not know sliding scale atorvastatin 80 mg tablet 80 mg PO QHS gabapentin 300 mg Capsule 300 mg PO TID tizanidine 4 mg tablet 4 mg PO 3XD midodrine 2.5 mg tablet 2.5 mg PO DAILY furosemide 20 mg tablet 20 mg PO DAILY escitalopram oxalate 20 mg tablet 20 mg PO DAILY sennosides-docusate sodium [Stimulant Laxative Plus] 8.6-50 mg Tablet 2 tab PO BID PRN (Reason: constipation) polyethylene glycol 3350 [Miralax] 17 gram/dose powder 17 g PO BID PRN (Reason: constipation) acetaminophen 500 mg Tablet 1,000 mg PO Q8 Qty: 0 0RF ertapenem 1 gram recon soln 1 g IV Q24H 7 Days Qty: 7 0RF Rx Instructions: Dx: emphysematous cystitis. Weekly bmp, LFT, and cbc while on iv abx. Fax to [phone]. acetaminophen 325 mg Tablet 650 mg PO Q4H PRN PRN (Reason: Fever, pain 1-10/10) Qty: 0 0RF oxycodone 5 mg Tablet 5 mg PO Q4H PRN PRN (Reason: pain 4-10) 3 Days Qty: 14 0RF sennosides-docusate sodium [Stimulant Laxative Plus] 8.6-50 mg Tablet 2 tab PO BID Qty: 60 0RF lidocaine 5 % Adhesive Patch,Medicated 1 patch topical DAILY Qty: 30 0RF Protocol: *Topical Application Instructions APPLICATION INSTRUCTIONS: to lower back ondansetron 4 mg tablet,disintegrating 4 mg PO Q6H PRN (Reason: nausea and vomiting) Qty: 30 0RF metoclopramide HCl [Reglan] 10 mg tablet 10 mg PO Q6H PRN (Reason: nausea and vomiting) 5 Days Qty: 20 0RF metoclopramide HCl [Reglan] 5 mg tablet 5 mg PO TID PRN PRN (Reason: nausea and vomiting) Qty: 14 0RF cholecalciferol (vitamin D3) 1,250 mcg (50,000 unit) tablet 1,250 mcg PO WE DIC 2%/RINKU 6%/LIDOC 2% IN saltsable cream 1 - 2 pump subdermal Q6H PRN (Reason: FOR FEET) spironolactone 25 mg tablet 25 mg PO DAILY 30 Days Qty: 0 0RF ergocalciferol (vitamin D2) [Vitamin D2] 1,250 mcg (50,000 unit) Capsule 1,250 mcg PO We@1000 Qty: 0 0RF carvedilol 3.125 mg tablet 6.25 mg PO BID 30 Days Qty: 0 0RF Rx Instructions: Hold for heart less than 50 or systolic blood pressure less than 100 mmHg. insulin glargine [Lantus Solostar U-100 Insulin] 100 unit/mL (3 mL) insulin pen 20 unit subcut QPM 30 Days Qty: 0 0RF Rx Instructions: Hold if glucose less than 130 mg/dl ondansetron 4 mg tablet,disintegrating 4 mg PO Q8H PRN PRN (Reason: Nausea) Qty: 10 0RF Primary Care Provider: Zohreh Pratt Referrals: Zohreh Pratt, [employer] [Primary Care Provider] - Activity Restrictions/Additional Instructions: You were given IV fluids and insulin to treat your high blood sugar. I think the pain you have in your legs is neuropathy. This means it is nerve pain. It is treated with medications like gabapentin. I recommend you talk to your prescribing doctor for further care. Print Language: Luxembourgish Disposition Disposition: Home, Self Care Discharge Date/Time: 12/12/24 18:42
--- NOTE | 2024-12-12 16:17 | EX.ED.DYSGE1 ---
HPI History of Present Illness Chief Complaint: Fall [facility] Medical History L5 vertebral fracture ESBL (extended spectrum beta-lactamase) producing bacteria infection Generalized weakness Candidiasis of breast Colitis Debility PTSD (post-traumatic stress disorder) Closed compression fracture of L3 vertebra Hypokalemia Colitis BiPAP (biphasic positive airway pressure) dependence Coronary artery disease On home oxygen therapy Rheumatoid arthritis Sleep apnea Smoker DVT (deep venous thrombosis) Seizures Amputation toe Psychiatric disorder Ischemic cardiomyopathy Diabetes type 2, uncontrolled Essential hypertension Substance abuse Alcohol abuse Depression Osteoporosis GERD (gastroesophageal reflux disease) Pulmonary embolism Myocardial infarct Pericardial effusion Hypoxemia Acute dyspnea Aftercare following surgery of the circulatory system Hx of fracture of humerus Toe amputee Hyperlipidemia CHF (congestive heart failure) CAD (coronary artery disease), eagle coronary artery Home Medications ?Medication ?Instructions ?Recorded ?Last Taken ?Type aspirin 81 mg capsule 81 mg PO DAILY heart health 08/10/22 09/06/24 History clopidogrel 75 mg tablet 75 mg PO DAILY anti platelet #30 02/03/23 09/06/24 Rx tabs pantoprazole 40 mg tablet,delayed 40 mg PO DAILY reflux 04/18/23 09/06/24 History release sacubitril 24 mg-valsartan 26 mg 1 tab PO BID . 30 days #60 tabs 05/07/23 09/06/24 Rx tablet (Entresto) atorvastatin 80 mg tablet 80 mg PO QHS cholesterol 12/29/23 09/06/24 History gabapentin 300 mg capsule 300 mg PO TID nerve pain 12/29/23 09/06/24 History insulin lispro 100 unit/mL 1 sliding scale dose subcut TIDCM 12/29/23 09/06/24 History subcutaneous half-unit pen glucose DIC 2%/RINKU 6%/LIDOC 2% IN 1 - 2 pump subdermal Q6H PRN FOR 02/14/24 09/06/24 History saltsable FEET cholecalciferol (vitamin D3) 1,250 1,250 mcg PO WE supplement 02/14/24 09/03/24 History mcg (50,000 unit) tablet spironolactone 25 mg tablet 25 mg PO DAILY water pill 30 days 02/17/24 09/06/24 Rx #0 tabs carvedilol 3.125 mg tablet 6.25 mg (2 x 3.125 mg) PO BID 02/19/24 09/06/24 Rx blood pressure 30 days #0 tabs ergocalciferol (vitamin D2) 1,250 1,250 mcg PO We@1000 #0 caps 02/19/24 09/03/24 Rx mcg (50,000 unit) capsule (Vitamin D2) insulin glargine 100 unit/mL (3 20 unit (0.2 mL) subcut QPM 30 02/19/24 09/06/24 Rx mL) subcutaneous pen (Lantus days #0 mL Solostar U-100 Insulin) escitalopram oxalate 20 mg tablet 20 mg PO DAILY depression 06/29/24 09/06/24 History furosemide 20 mg tablet 20 mg PO DAILY water pill 06/29/24 09/06/24 History midodrine 2.5 mg tablet 2.5 mg PO DAILY blood pressure 06/29/24 09/06/24 History polyethylene glycol 3350 17 17 g PO BID PRN constipation 06/29/24 Unknown History gram/dose oral powder (Miralax) sennosides 8.6 mg-docusate sodium 2 tab PO BID PRN constipation 06/29/24 Unknown History 50 mg tablet (Stimulant Laxative Plus) tizanidine 4 mg tablet 4 mg PO 3XD spasm 06/29/24 09/06/24 History acetaminophen 500 mg tablet 1,000 mg (2 x 500 mg) PO Q8 #0 tabs 09/02/24 09/06/24 Rx ondansetron 4 mg disintegrating 4 mg PO Q8H PRN PRN Nausea #10 tabs 09/05/24 Unknown Rx tablet acetaminophen 325 mg tablet 650 mg (2 x 325 mg) PO Q4H PRN PRN 09/16/24 Unknown Rx Fever, pain 1-10/10 #0 tabs ertapenem 1 gram solution for 1 g IV Q24H 7 days #7 ea 09/16/24 Unknown Rx injection lidocaine 5 % topical patch 1 patch topical DAILY #30 ea 09/16/24 Unknown Rx ondansetron 4 mg disintegrating 4 mg PO Q6H PRN nausea and 09/16/24 Unknown Rx tablet vomiting #30 tabs oxycodone 5 mg tablet 5 mg PO Q4H PRN PRN pain 4-10 3 09/16/24 Unknown Rx days #14 tabs sennosides 8.6 mg-docusate sodium 2 tab PO BID #60 tabs 09/16/24 Unknown Rx 50 mg tablet (Stimulant Laxative Plus) metoclopramide HCl 10 mg tablet 10 mg PO Q6H PRN nausea and 09/21/24 Unknown Rx (Reglan) vomiting 5 days #20 tabs metoclopramide HCl 5 mg tablet 5 mg PO TID PRN PRN nausea and 09/29/24 Unknown Rx (Reglan) vomiting #14 tabs Allergy/AdvReac Type Severity Reaction Status Date / Time latex Allergy Hives Verified 09/29/24 10:17 Family History Mother Thyroid disorder Diabetes Hypertension Grandmother Diabetes Uncle Diabetes Aunt Diabetes Other Heart disease Surgical History History of cholecystectomy History of appendectomy History of cholecystectomy Social History household members: spouse and children housing: house Smoking Status: Current every day smoker tobacco type: cigarettes alcohol intake: never substance use type: marijuana what type of physical activity do you participate in: none do you feel safe at home: Yes EXAM Physical Exam Const Vital Signs: 12/12/24 13:08 12/12/24 16:06 12/12/24 17:23 Temperature 97.3 F L Temperature Source Temporal Pulse Rate 106 H 101 H Respiratory Rate 14 18 Blood Pressure 149/95 H 164/97 H Blood Pressure Mean 113 119 Pulse Ox 98 98 Oxygen Delivery Method Room Air Room Air Room Air MDM MDM MDM Narrative Medical decision making narrative: I have personally performed a face to face assessment of the patient and have reviewed the JANICE Note. I performed a substantive portion of the visit including all aspects of the following. My jones findings include: History is remarkable for history of neuropathy due to diabetes and PAD. Patient had stent right lower extremity by Dr. Ng. She presents because of pain. She states she is vomiting unable to take her meds or if she does take her meds she not able to keep them down. She denies fever, chills night sweats. She denies pallor to her legs. She denies numbness of her legs. She denies having difficulty move her toes. There is no history of trauma. Exam is patient has stigmata of peripheral arterial disease. There is no palpable DP or PT pulse either side. There is biphasic PT flow on the right and no flow DP on the right. There is biphasic flow PT and DP on the left. Patient complains of pain to light touch of her foot. There is some edema on the dorsal surface and ankle. There is no evidence of infection. There is no evidence of acute ischemia. Capillary refill is normal. Toes appear normal. Medical Decision Making suspect patient's pain is due to a neuropathy from her diabetes and PAD. Also due to the fact that she is not able to take her medicines or vomits her medicine. X-ray was obtained per nurse protocol. These were independent reviewed interpreted by me as negative for any acute pathology. Other additions or changes: [None] Lab Data Labs: Laboratory Results - last 24 hr 12/12/24 12/12/24 16:16 17:00 Sodium 132 L Potassium 3.9 Chloride 98 Carbon Dioxide 23.3 Anion Gap 11 BUN 6 Creatinine 0.66 L Est GFR (MDRD) Non-Af 105 BUN/Creatinine Ratio 8.9 L Glucose 327 H Calcium 9.2 POC Glucose 346 H Radiography Chest X-Ray - ED: Read by ED Physician (Three-view x-ray of the right foot and ankle revealed osteopenia. There is significant atherosclerotic disease involving the dorsalis pedal artery. There is no widening of the mortise. There is no acute fracture noted. There is no fracture of the base of the fifth metatarsal.) Diagnostic Testing: Clinical Impression(s) from Imaging Studies Foot X-Ray 12/12/24 14:10 IMPRESSION: 1. No evidence of acute fracture or dislocation. 2. Surgical amputation of the 2nd digit at the MTP joint. 3. Generalized soft tissue swelling/edema about the ankle and foot. Reading Location: [facility] Ankle X-Ray 12/12/24 14:25 IMPRESSION: 1. No evidence of acute fracture or dislocation. 2. Surgical amputation of the 2nd digit at the MTP joint. 3. Generalized soft tissue swelling/edema about the ankle and foot. Reading Location: [facility] Discharge Plan Triage Chief Complaint: Fall ED Midlevel Provider: Vianey Galeano ED Provider: Derek Paniagua Dx/Rx/DC Orders Clinical Impression: Bilateral leg pain, History of neuropathy, Hyperglycemia due to type 2 diabetes mellitus, PAD (peripheral artery disease), Neuropathy of right lower extremity, Neuropathy of left lower extremity Instructions: ED Diabetic Hyperglycemia, ED Neuropathy, Peripheral Prescriptions: No Action pantoprazole 40 mg tablet,delayed release (DR/EC) 40 mg PO DAILY aspirin 81 mg Capsule 81 mg PO DAILY clopidogrel 75 mg Tablet 75 mg PO DAILY Qty: 30 0RF Patient Comments: patient stated pretty sure I still take that sacubitril-valsartan [Entresto] 24-26 mg Tablet 1 tab PO BID 30 Days Qty: 60 0RF insulin lispro 100 unit/mL insulin pen, half-unit 1 sliding scale dose subcut TIDCM Patient Comments: patient does not know sliding scale atorvastatin 80 mg tablet 80 mg PO QHS gabapentin 300 mg Capsule 300 mg PO TID tizanidine 4 mg tablet 4 mg PO 3XD midodrine 2.5 mg tablet 2.5 mg PO DAILY furosemide 20 mg tablet 20 mg PO DAILY escitalopram oxalate 20 mg tablet 20 mg PO DAILY sennosides-docusate sodium [Stimulant Laxative Plus] 8.6-50 mg Tablet 2 tab PO BID PRN (Reason: constipation) polyethylene glycol 3350 [Miralax] 17 gram/dose powder 17 g PO BID PRN (Reason: constipation) acetaminophen 500 mg Tablet 1,000 mg PO Q8 Qty: 0 0RF ertapenem 1 gram recon soln 1 g IV Q24H 7 Days Qty: 7 0RF Rx Instructions: Dx: emphysematous cystitis. Weekly bmp, LFT, and cbc while on iv abx. Fax to [phone]. acetaminophen 325 mg Tablet 650 mg PO Q4H PRN PRN (Reason: Fever, pain 1-10/10) Qty: 0 0RF oxycodone 5 mg Tablet 5 mg PO Q4H PRN PRN (Reason: pain 4-10) 3 Days Qty: 14 0RF sennosides-docusate sodium [Stimulant Laxative Plus] 8.6-50 mg Tablet 2 tab PO BID Qty: 60 0RF lidocaine 5 % Adhesive Patch,Medicated 1 patch topical DAILY Qty: 30 0RF Protocol: *Topical Application Instructions APPLICATION INSTRUCTIONS: to lower back ondansetron 4 mg tablet,disintegrating 4 mg PO Q6H PRN (Reason: nausea and vomiting) Qty: 30 0RF metoclopramide HCl [Reglan] 10 mg tablet 10 mg PO Q6H PRN (Reason: nausea and vomiting) 5 Days Qty: 20 0RF metoclopramide HCl [Reglan] 5 mg tablet 5 mg PO TID PRN PRN (Reason: nausea and vomiting) Qty: 14 0RF cholecalciferol (vitamin D3) 1,250 mcg (50,000 unit) tablet 1,250 mcg PO WE DIC 2%/RINKU 6%/LIDOC 2% IN saltsable cream 1 - 2 pump subdermal Q6H PRN (Reason: FOR FEET) spironolactone 25 mg tablet 25 mg PO DAILY 30 Days Qty: 0 0RF ergocalciferol (vitamin D2) [Vitamin D2] 1,250 mcg (50,000 unit) Capsule 1,250 mcg PO We@1000 Qty: 0 0RF carvedilol 3.125 mg tablet 6.25 mg PO BID 30 Days Qty: 0 0RF Rx Instructions: Hold for heart less than 50 or systolic blood pressure less than 100 mmHg. insulin glargine [Lantus Solostar U-100 Insulin] 100 unit/mL (3 mL) insulin pen 20 unit subcut QPM 30 Days Qty: 0 0RF Rx Instructions: Hold if glucose less than 130 mg/dl ondansetron 4 mg tablet,disintegrating 4 mg PO Q8H PRN PRN (Reason: Nausea) Qty: 10 0RF Primary Care Provider: Zohreh Pratt Referrals: Zohreh Pratt, [employer] [Primary Care Provider] - Activity Restrictions/Additional Instructions: You were given IV fluids and insulin to treat your high blood sugar. I think the pain you have in your legs is neuropathy. This means it is nerve pain. It is treated with medications like gabapentin. I recommend you talk to your prescribing doctor for further care. Print Language: Kiswahili Disposition Disposition: Home, Self Care
[2024-12-12] MEDS: 0.9% Normal Saline (1000mL) 1,000 ML 999 ML IV (17:19)
[2024-12-12 17:23] VITALS: BP 164/97; PULSE 101; RESP 18; O2SAT 98
[2024-12-12 17:51] LABS: Anion Gap 11 (5-15); BUN 6 mg/dL (4-19); BUN/Creat Ratio 8.9 RATIO (10-20); Calcium,Total 9.2 mg/dL (7.6-11.0); Carbon Dioxide 23.3 mmol/L (21.0-32.0); Chloride 98 mmol/L (98-108); Glucose 327 mg/dL (70-99); Potassium 3.9 mmol/L (3.3-5.1)
[2024-12-12 18:17] VITALS: BP 152/91; PULSE 97; RESP 18; TEMP 36.9; O2SAT 98
== END 2024-12-12 18:42 | disposition home or self-care (01) ==
PROVIDERS: Physician Assistant; Emergency Provider Emergency Medicine; PCP Nurse Practitioner Family; Referring Provider Emergency Medicine; Visit Provider Emergency Medicine
DX: M79.605 Pain in left leg (principal); E11.51 Type 2 diabetes mellitus with diabetic peripheral angiopathy without gangrene; E11.40 Type 2 diabetes mellitus with diabetic neuropathy, unspecified; I25.5 Ischemic cardiomyopathy; R11.10 Vomiting, unspecified; Z86.711 Personal history of pulmonary embolism; I25.10 Atherosclerotic heart disease of native coronary artery without angina pectoris; M79.604 Pain in right leg; F17.210 Nicotine dependence, cigarettes, uncomplicated; E78.5 Hyperlipidemia, unspecified; Z86.718 Personal history of other venous thrombosis and embolism; I25.2 Old myocardial infarction; Z99.89 Dependence on other enabling machines and devices; Z79.82 Long term (current) use of aspirin
CPT/HCPCS: 73610; 73630; 80048; 82962; 96361; 96374; 99283

== ENCOUNTER 2025-01-29 15:40 | Inpatient (IN) | payer MEDICAID, SELFPAY ==
[2025-01-29] VITALS (7 sets, daily range): BP systolic 133–164; BP diastolic 69–99; PULSE 70–123; RESP 14–20; TEMP 36.6–36.8; O2SAT 97–100; BMI 26.9; BMI 26.4
--- NOTE | 2025-01-29 17:44 | RAD_ITS ---
PROCEDURE: HIP, UNI W/ PELVIS 2-3 VIEWS 01/29/2025 REASON FOR EXAM: RIGHT HIP PAIN TECHNIQUE: HIP, UNI W/ PELVIS 2-3 VIEWS Laterality: Right COMPARISON: Chest x-ray 11/01/2023. FINDINGS: Bones: Osteopenia. Acute nondisplaced fracture of the right inferior and superior pubic processes. Joints: Unremarkable. Soft tissues: No soft tissue abnormalities. Vascular stent. RAD/HIP, UNI W/ Pelvis 2-3 Views IMPRESSION: Acute nondisplaced fracture of the right inferior and superior pubic processes. Reading Location: [id number]
[2025-01-29 18:02] LABS: Anion Gap 10 (5-15); BUN 6 mg/dL (4-19); BUN/Creat Ratio 9.0 RATIO (10-20); Calcium,Total 8.9 mg/dL (7.6-11.0); Carbon Dioxide 23.8 mmol/L (21.0-32.0); Chloride 99 mmol/L (98-108); Estimated Creatinine Clearance 104.07 ml/min (50-250); Glucose 344 mg/dL (70-99); Potassium 4.1 mmol/L (3.3-5.1)
[2025-01-29 18:07] LABS: CRP < 3.00 mg/L (0.0-3.0)
[2025-01-29 18:33] LABS: Hematocrit 43.4 % (37-47); Hemoglobin 14.3 g/dL (12.0-15.0); Immature Granulocytes Count 0.040 X10^3/uL (0.0-0.0); Mean Corp Hgb Conc 32.9 g/dL (32-36); Mean Corpuscular Volume 82.8 fL (81-99); Mean Platelet Vol. 10.1 fl (6.2-12.0); NRBC Flagged by Analyzer 0 % (0-5); Platelet Count 240 K/mm3 (150-450); RBC Distribution Width CV 14.4 % (11.6-14.6); RBC Distribution Width SD 42.9 fl (35.1-43.9); Red Blood Count 5.24 M/mm3 (4.2-5.4); White Blood Count 7.8 K/mm3 (4.4-11.0)
--- NOTE | 2025-01-29 19:29 | PCM.HP.STD ---
[facility] Date of Admission: 01/29/25 Date of Service: 01/29/25 Chief Complaint: Severe Right Hip Pain and Inability to Ambulate. HPI Narrative TRENTON JACKSON, is a 54 F with a past medical history of essential hypertension; on sacubitril-valsartan furosemide, spironolactone and carvedilol twice daily, chronic hypotension; on midodrine, hyperlipidemia; on atorvastatin, tobacco abuse, overweight; with BMI of 26.9 this admission, GWYN; on BiPAP, CAD, chronic systolic CHF; reduced LVEF of ~30%, history of ischemic cardiomyopathy, PAD; s/p Right second toe amputation and partial Left foot amputation due to infection with subsequent stent to lower extremity (~2023) on baby aspirin and clopidogrel, history of DVT/PE; currently not on anticoagulation, DM-2; of unknown control on insulin glargine 20 units subcu daily plus insulin lispro SSI 3 times daily, diabetic neuropathy; on gabapentin 3 times daily, history of cannabis abuse GERD; with history of suspected esophagitis and frequent nausea and vomiting on pantoprazole plus metoclopramide every 6 hours as needed, chronic constipation; on sennosides-docusate twice daily plus polyethylene glycol twice daily as needed, depression; on escitalopram, muscle spasms; on tizanidine 3 times daily, OA; with chronic back pain attributed to lumbar compression fractures plus history of Right hip fracture ~6 months ago; s/p ORIF on oxycodone every 4 hours as needed plus lidocaine patch and history of admission here from September 07, 2024 to September 16, 2024 for treatment of nausea and vomiting for [address] scan of the abdomen and pelvis demonstrating 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 Mcneil and urology with repeat cultures growing colony count of yeast that was not Ashley albicans with patient subsequently discharged home on 7 days of IV ertapenem who presents to [facility] ER complaining of severe Right hip pain and inability to ambulate. Ms. Jackson reports her symptoms began approximately 2 days prior to admission with gradually worsening Right hip pain that radiated down her Right thigh after she ran out out of pain medications as she claims she lost her PCP after failing to follow up. She then activated EMS who arrived and found patient in a wheelchair with normal vital signs. Patient denies fall or injury to her hip recently except for a fall in December 12, 2024 for which she was evaluated in the ER here. There was no report of associated fever, chills, nausea, vomiting, diarrhea, constipation, abdominal pain, chest pain, palpitations, heart racing, lower extremity edema, dysuria, hematuria, headache, rash, recent illness or recent medication changes. In the ER she was noted to have x-rays of the Right hip and pelvis that revealed acute nondisplaced fracture of the Right inferior and superior pubic processes in addition to previous vascular stent and osteopenia complicated by severe Right hip pain causing Ambulatory Dysfunction with additional laboratory evidence of Hyperglycemia of 344 mg/dL consistent with uncontrolled DM-2 with otherwise unremarkable laboratory studies and vital signs. She was then admitted to the general medical floor under observation status for ongoing care for stay with his expected to be less than 2 midnights. [facility] Medical History L5 vertebral fracture ESBL (extended spectrum beta-lactamase) producing bacteria infection Generalized weakness Candidiasis of breast Colitis Debility PTSD (post-traumatic stress disorder) Closed compression fracture of L3 vertebra Hypokalemia Colitis BiPAP (biphasic positive airway pressure) dependence Coronary artery disease On home oxygen therapy Rheumatoid arthritis Sleep apnea Smoker DVT (deep venous thrombosis) Seizures Amputation toe Psychiatric disorder Ischemic cardiomyopathy Diabetes type 2, uncontrolled Essential hypertension Substance abuse Alcohol abuse Depression Osteoporosis GERD (gastroesophageal reflux disease) Pulmonary embolism Myocardial infarct Pericardial effusion Hypoxemia Acute dyspnea Aftercare following surgery of the circulatory system Hx of fracture of humerus Toe amputee Hyperlipidemia CHF (congestive heart failure) CAD (coronary artery disease), [place]reau coronary artery Home Medications ?Medication ?Instructions ?Recorded ?Last Taken ?Type aspirin 81 mg capsule 81 mg PO DAILY heart health 08/10/22 09/06/24 History clopidogrel 75 mg tablet 75 mg PO DAILY anti platelet #30 02/03/23 09/06/24 Rx tabs pantoprazole 40 mg tablet,delayed 40 mg PO DAILY reflux 04/18/23 09/06/24 History release sacubitril 24 mg-valsartan 26 mg 1 tab PO BID .bp 30 days #60 tabs 05/07/23 09/06/24 Rx tablet (Entresto) atorvastatin 80 mg tablet 80 mg PO QHS cholesterol 12/29/23 09/06/24 History gabapentin 300 mg capsule 300 mg PO TID nerve pain 12/29/23 09/06/24 History insulin lispro 100 unit/mL 1 sliding scale dose subcut TIDCM 12/29/23 09/06/24 History subcutaneous half-unit pen glucose DIC 2%/RINKU 6%/LIDOC 2% IN 1 - 2 pump subdermal Q6H PRN FOR 02/14/24 09/06/24 History saltsable FEET cholecalciferol (vitamin D3) 1,250 1,250 mcg PO WE supplement 02/14/24 09/03/24 History mcg (50,000 unit) tablet spironolactone 25 mg tablet 25 mg PO DAILY water pill 30 days 02/17/24 09/06/24 Rx #0 tabs carvedilol 3.125 mg tablet 6.25 mg (2 x 3.125 mg) PO BID 02/19/24 09/06/24 Rx blood pressure 30 days #0 tabs ergocalciferol (vitamin D2) 1,250 1,250 mcg PO We@1000 #0 caps 02/19/24 09/03/24 Rx mcg (50,000 unit) capsule (Vitamin D2) insulin glargine 100 unit/mL (3 20 unit (0.2 mL) subcut QPM 30 02/19/24 09/06/24 Rx mL) subcutaneous pen (Lantus days #0 mL Solostar U-100 Insulin) escitalopram oxalate 20 mg tablet 20 mg PO DAILY depression 06/29/24 09/06/24 History furosemide 20 mg tablet 20 mg PO DAILY water pill 06/29/24 09/06/24 History midodrine 2.5 mg tablet 2.5 mg PO DAILY blood pressure 06/29/24 09/06/24 History polyethylene glycol 3350 17 17 g PO BID PRN constipation 06/29/24 Unknown History gram/dose oral powder (Miralax) sennosides 8.6 mg-docusate sodium 2 tab PO BID PRN constipation 06/29/24 Unknown History 50 mg tablet (Stimulant Laxative Plus) tizanidine 4 mg tablet 4 mg PO 3XD spasm 06/29/24 09/06/24 History acetaminophen 500 mg tablet 1,000 mg (2 x 500 mg) PO Q8 #0 tabs 09/02/24 09/06/24 Rx ondansetron 4 mg disintegrating 4 mg PO Q8H PRN PRN Nausea #10 tabs 09/05/24 Unknown Rx tablet acetaminophen 325 mg tablet 650 mg (2 x 325 mg) PO Q4H PRN PRN 09/16/24 Unknown Rx Fever, pain 1-10/10 #0 tabs ertapenem 1 gram solution for 1 g IV Q24H 7 days #7 ea 09/16/24 Unknown Rx injection lidocaine 5 % topical patch 1 patch topical DAILY #30 ea 09/16/24 Unknown Rx ondansetron 4 mg disintegrating 4 mg PO Q6H PRN nausea and 09/16/24 Unknown Rx tablet vomiting #30 tabs oxycodone 5 mg tablet 5 mg PO Q4H PRN PRN pain 4-10 3 09/16/24 Unknown Rx days #14 tabs sennosides 8.6 mg-docusate sodium 2 tab PO BID #60 tabs 09/16/24 Unknown Rx 50 mg tablet (Stimulant Laxative Plus) metoclopramide HCl 10 mg tablet 10 mg PO Q6H PRN nausea and 09/21/24 Unknown Rx (Reglan) vomiting 5 days #20 tabs metoclopramide HCl 5 mg tablet 5 mg PO TID PRN PRN nausea and 09/29/24 Unknown Rx (Reglan) vomiting #14 tabs Allergy/AdvReac Type Severity Reaction Status Date / Time latex Allergy Hives Verified 01/29/25 15:41 Family History Mother Thyroid disorder Diabetes Hypertension Grandmother Diabetes Uncle Diabetes Aunt Diabetes Other Heart disease Surgical History History of cholecystectomy History of appendectomy History of cholecystectomy Social History household members: spouse and children housing: house Smoking Status: Current every day smoker tobacco type: cigarettes alcohol intake: never substance use type: marijuana what type of physical activity do you participate in: none do you feel safe at home: Yes ROS ROS Narrative Review of Systems: Constitutional: Patient denies fever or chills. Eyes: Patient denies changes in vision or discharge from eyes. ENT: Patient denies runny nose, sore throat or ear pain. Resp: Patient has chronic shortness of breath on as needed oxygen at home as per HPI. She denies cough or wheezing. CV: Patient denies chest pain, palpitations, heart racing or lower extremity edema. GI: Patient denies nausea, vomiting, diarrhea, constipation or abdominal pain. : Patient denies dysuria or hematuria. MSK: Patient admits to severe Right hip pain with ambulatory dysfunction as per HPI. Skin: Patient denies rash, abscess, wounds or jaundice. Psych: Patient denies symptoms of uncontrolled depression or anxiety. Neuro: Patient denies headache, paresthesias or focal neurologic weakness. Allergy: Patient denies lip swelling, tongue swelling or urticaria. Hematology: Patient denies easy bleeding or easy bruisability. Endocrinology: Patient admits to polyuria with hyperglycemia but she denies polydipsia, polyphagia or heat/cold intolerance. 14 point ROS otherwise negative except for positives noted above in HPI. Vital Signs Vital Signs Vital Signs: 01/29/25 15:40 01/29/25 17:31 Temperature 98.3 F Temperature Source Oral Pulse Rate 123 H 106 H Respiratory Rate 20 H 14 Blood Pressure 135/97 H 145/87 H Blood Pressure Mean 109 106 Pulse Ox 100 99 Oxygen Delivery Method Room Air Room Air Weight Weight: 166 lb 14.239 oz Body Mass Index (BMI) 26.9 Physical Exam Const alert and oriented x3 Constitutional Narrative: Mild disheveled and unkempt with signs of hirsutism and with patient appearing nontoxic but much older than stated age. General Appearance: cooperative HEENT normocephalic, head/scalp atraumatic, hearing grossly normal bilaterally and moist oral mucous membranes Eyes PERRL, EOMs intact bilaterally and conjunctivae normal Neck no lymphadenopathy and supple Resp normal respiratory effort, no retractions, no use of accessory muscles and clear to auscultation bilaterally Cardio regular rate and regular rhythm GI normal to inspection, nondistended, normoactive bowel sounds, soft to palpation, non-tender and non-distended Extremity Extremity Narrative: Patient has limited range of motion at the Right hip and is unable to stand and bear weight due to pain. No signs of neurovascular compromise. Evidence of previous Right second toe amputation and Left partial foot amputation. Skin Skin Narrative: Patient has evidence of rash, abscess, wounds or jaundice. Neuro oriented x3, CN's II-XII intact bilaterally, moves all extremities and no focal motor deficits Neuro Narrative: Patient is unable to ambulate due to pain in Right hip with otherwise nonfocal neurologic exam. Sensorium / Orientation: awake, alert, oriented to person, oriented to place and oriented to time Speech: speech normal Psych affect normal Results Medical Records Data Attestation: I reviewed the patient's medical records Lab / Micro Data Attestation: I reviewed the patient's lab results. 01/29/25 17:00 01/29/25 17:00 Labs: Laboratory Results - last 24 hr 01/29/25 17:00: WBC 7.8, RBC 5.24, Hgb 14.3, Hct 43.4, MCV 82.8, MCH 27.3, MCHC 32.9, RDW Std Deviation 42.9, RDW Coeff of [place] 14.4, Plt Count 240, MPV 10.1, Immature Gran % (Auto) 0.500, Neut % (Auto) 74.5 H, Lymph % (Auto) 18.4 L, [place] % (Auto) 5.4, Eos % (Auto) 0.4, Baso % (Auto) 0.8, Absolute Neuts (auto) 5.9, Absolute Lymphs (auto) 1.44, Nucleated RBC % 0, Sodium 134, Potassium 4.1, Chloride 99, Carbon Dioxide 23.8, Anion Gap 10, BUN 6, Creatinine 0.65 L, Estim Creat Clear Calc 104.07, Est GFR (MDRD) Non-Af 105, BUN/Creatinine Ratio 9.0 L, Glucose 344 H, Calcium 8.9, C-React Prot Ext Range < 3.00 Imaging Radiology Impression Hip/Pelvis X-Ray 01/29/25 17:44 IMPRESSION: Acute nondisplaced fracture of the right inferior and superior pubic processes. Reading Location: [facility] Assessment & Plan Assessment/Plan (1) Fracture of pubic ramus: QUALIFIERS: Encounter type: initial encounter Fracture type: closed Laterality: right Qualified Code(s): S32.591A - Other specified fracture of right pubis, initial encounter for closed fracture (2) Severe pain: (3) Ambulatory dysfunction: (4) Hyperglycemia due to type 2 diabetes mellitus: QUALIFIERS: Diabetes mellitus systems program manager insulin use: with halfway use Qualified Code(s): E11.65 - Type 2 diabetes mellitus with hyperglycemia; Z79.4 - diploma maker (current) use of insulin (5) Overweight (BMI 25.0-29.9): (6) Tobacco abuse: (7) Sleep apnea: QUALIFIERS: Sleep apnea type: unspecified type Qualified Code(s): G47.30 - Sleep apnea, unspecified PLAN: Plan 1. X-rays of the Right hip and pelvis that revealed acute nondisplaced fracture of the Right inferior and superior pubic processes in addition to previous vascular stent and osteopenia - Admit to general medical floor under observation status. Continue scheduled acetaminophen q. 8 hours as before. Give morphine IV as needed for severe (level 6-10/10) pain. 2. Severe Right hip pain causing Ambulatory Dysfunction due to #1 in the setting of previously known OA; with chronic back pain attributed to lumbar compression fractures plus history of hip fracture ~6 months ago on oxycodone every 4 hours as needed plus lidocaine patch - PT/OT and Case Management consult and treat on rounds in a.m. for further recommendations as patient may likely require subacute rehabilitation, with help appreciated in advance. Patient also wants help obtaining DME as she states what she has at home right now is suboptimal. 3. Hyperglycemia of 344 mg/dL consistent with uncontrolled DM-2 in the setting of chronic diabetic neuropathy complicating #1 & #2 - Maintain insulin glargine 20 units subcu daily and check FSBS q. AC/HS plus sliding scale insulin. Check hemoglobin A1c to objectively evaluate quality of diabetic control. We will continue gabapentin as before. 4. Overweight; with a BMI of 26.9 this admission plus GWYN adding to the burden of disease outlined from #1 - #3 - Weight loss will be recommended. Check TSH. Resume nocturnal BiPAP as previous. 5. Chronic tobacco abuse adding to the medical complexity of #1 - #4 - Tobacco Cessation will be strongly encouraged with Nicotine patch offered to control cravings. 6. 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 Tarun and urology with repeat cultures growing colony count of yeast that was not Ashley albicans with patient subsequently discharged home on 7 days of IV ertapenem - Noted with no complaints related to bladder pathology at this time. 7. Essential hypertension; on sacubitril-valsartan furosemide, spironolactone and carvedilol twice daily - Maintain home regimen. 8. Chronic hypotension; on midodrine - Current therapy to be resumed as before. 9. Hyperlipidemia; on atorvastatin - Continue statin. 10. CAD - Stable. 11. Chronic systolic CHF; reduced LVEF of ~30% - Noted with no active complaints related to this issue at this time. 12. History of ischemic cardiomyopathy - Noted. 13. PAD; s/p Right second toe amputation and partial Left foot amputation due to infection with subsequent stent to lower extremity (~2023) on baby aspirin and clopidogrel - Resume BASA and clopidogrel as previous. 14. History of DVT/PE; currently not on anticoagulation - Noted. 15. History of cannabis abuse - Check UDS with Cannabis Cessation strongly encouraged. 16. GERD; with history of suspected esophagitis and frequent nausea and vomiting on pantoprazole plus metoclopramide every 6 hours as needed - Maintain present treatment. 17. Chronic constipation; on sennosides-docusate twice daily plus polyethylene glycol twice daily as needed - Resume bowel regimen. 18. Depression; on escitalopram - Continue escitalopram as before. 19. Muscle spasms; on tizanidine 3 times daily - Maintain present therapy. 20. DVT prophylaxis - Enoxaparin 40 mg sq daily plus SCD's. Total time: Approximately (but not less than) 70 minutes. Charges/Coding Visit Charges OBSV E&M: [id number] Observ/hosp same date L2
--- OUTSIDE RECORDS SUMMARY | 2025-01-29 20:36 | XMS RPT_ITS | CCD ---
Author Organization [facility] Care Team Providers Care Game Tester Name Role Phone FERCHO OSBORNE Admitting Unavailable THUESEDX JOYNER () Attending Unavailable JEVON SHERMAN Consulting Unavailable PROVIDER, UNKNOWN Attending Unavailable LISA BOCANEGRA Admitting Unavailable PHAN, LO PICKERING Referring Unavailabl e ALYSA, JASVIR Lozada Consulting Unavailable FREDO MORROW Attending Unavailable LISA BOCANEGRA Admitting Unavailable CONKLEZOHREH Referring Unavailable LEI ROMAN Attending Unavailable TORITO FOLEY Consulting Unavailab MARY Merlos Attending Unavailable Unknown, Pcp Unavailable Unavailable Moomaw, Alex I Unavailable Unavailable RICCARDO MCLAIN Attending Unavailable RICCARDO MCLAIN Referring Unavailable Dr. Nathaly Lainez Primary Care Provider [phone] Dr. Nathaly Lainez Referring Provider [phone] MARTIN Stephen Attending Provider [phone] Dr. Alli Brito Attending Provider [phone] MARTIN Montero Attending Provider [phone] Dr. Riccardo Ng Attending Provider [phone] Dr. Riccardo Ng Referring Provider [phone] Dr. Riccardo Ng Other Provider [facility], Nathaly Lainez Primary Care Pro vider Dr. Nathaly Lainez Primary Care Provider Dr. Nathaly Lainez Referring Provider MARTIN Stephen Attending Provider [phone] Dr. Alli Brito Attending Provider [phone] MARTIN Montero Attending Provider Dr. Riccardo Ng Attending Provider [phone] Riccardo Ng Referring Provider [phone] Ric[address]od Ng Other Provider [facility] [place] Primary Care Pro vider Dr. Nathaly Lainez Primary Care Provider Dr. Nathaly Lainez Referring Provider [facility], Nathaly Lainez Referring Provid er MD Jeremiah Rawls Emergency Provider Dr. Jeison Forde Admit Provider Dr. Jeison Forde Other Provider Dr. Sabina Rosenberg Attending Provider Dr. Sabina Rosenberg Other Provider Dr. Sanjiv Alcantar Attending Provider Dr. Jeison Forde Referring Provider JEISON FORDE DPM Attending Unavailable PHYSICIAN, NONE Primary Care Unavailable MARTIN Montero Referring Provider [phone] Dr. Nathaly Lainez Primary Care Provider Dr. Nathaly Lainez Referring Provider MARTIN Montero Attending Provider [phone] Dr. Riccardo Ng Attending Provider [phone] Riccardo Ng Referring Provider [phone] Riccardo Ng Other Provider [facility], [place] Primary Care Pro vider MARTIN Montero Referring Provider [phone] [facility], Nathaly Lainez Referring Provid er MD Jeremiah Rawls Emergency Provider Dr. Jeison Forde Admit Provider Dr. Jeison Forde Referring Provider Dr. Jeison Forde Other Provider Dr. Sabina Rosenberg Attending Provider Dr. Sabina Rosenberg Other Provider Dr. Sanjiv Alcantar Attending Provider MARTIN Mathis Attending Provider MARTIN Mathis Referring Provider Dr. Yvette Hanley Referring Provider [facility] Primary Care Pro vider Dr. Riccardo Ng Attending Provider Dr. Yvette Hanley Referring Provider MARTIN Mathis Referring Provider Dr. Yvette Hanley Emergency Provider Dr. Sabina Rosenberg Admit Provider Dr. Sabina Rosenberg Attending Provider Dr. Sabina Rosenberg Other Provider [facility] Primary Care Pro vider Dr. Zack Card Emergency Provider Dr. Brandon Adames Admit Provider Dr. Brandon Adames Attending Provider Dr. Brandon Adames Other Provider [facility] Primary Care Pro vider Dr. Yvette Hanley Emergency Provider Dr. Sabina Rosenberg Admit Provider Dr. Sabina Rosenberg Attending Provider Dr. Sabina Rosenberg Other Provider Dr. Zack Card Emergency Provider Dr. Brandon Adames Admit Provider Dr. Brandon Adames Attending Provider Dr. Brandon Adames Other Provider [facility], [facility] Referring Provid er Dr. Alli Brito Attending Provider Roof SERVICE DESK DIRECTOR, SERVICE DESK DIRECTOR-Gideon Rashid Attending Provider Dr. Lino Sousa Attending Provider [facility] Primary Care Pro vider Dr. Yvette Hanley Emergency Provider Dr. Sabina Rosenberg Admit Provider Dr. Sabina Rosenberg Attending Provider Dr. Sabina Rosenberg Other Provider [facility] Primary Care Pro vider Dr. Sabina Rosenberg Attending Provider Dr. Sabina Rosenberg Other Provider Dr. Ananda Coyle Emergency Provider Dr. Lei Justin Admit Provider Dr. Lei Justin Other Provider Dr. Alli Brito Other Provider Dr. Brenda Posadas Other Provider Dr. Brenda Posadas Attending Provider Dr. Latricia Aaron Attending Provider Unavailable Dr. Latricia Aaron Other Provider Unavailable Dr. Lei Justin Referring Provider [facility] Primary Care Pro vider Dr. Riccardo Hillman Emergency Provider Dr. Talisha Boykin Admit Provider Dr. Talisha Boykin Other Provider Dr. Jeremy Alexander Attending Provider Benjamin, Dr. Luna Other Provider Dr. Moody Gallagher Other Provider Ashutosh, Dr. Talisha Landry Attending Provider Benjamin, Dr. Luna Attending Provider [facility], [facility] Primary Care Pro vider Dr. Ananda Coyle Emergency Provider Nhan, Dr. Mcdaniel Admit Provider [phone], Dr. Mcdaniel Other Provider [phone] Dr. Alli Brito Other Provider Dr. Brenda Posadas Attending Provider Dr. Brenda Posadas Other Provider Dr. Alli Brito Attending Provider Dr. Latricia Aaron Attending Provider Unavailable Agnieszka, Dr. Hooker Other Provider Unavailable Dr. Riccardo Hillman Emergency Provider Ashutosh, Dr. Talisha Landry [facility]mit [facility] Dr. Talisha Landry Attending Provider Korjaycee, Dr. Talisha Landry Other Provider Benjamin, Dr. Luna Other Provider Dr. Jeremy Alexander Attending Provider Dr. Moody Gallagher Other Provider Terence SERVICE DESK DIRECTOR, Zohreh Unavailable [facility], [facility] Care Provider [facility], [facility] Primary Care Pro vider [facility], [facility] Care Provider No, Pcp Primary Care Provider Unavailmir e MICHEL HERNANDEZ, BRITTANEY Sue Primary Care Physician BRITTANEY PEARSON MD Primary Care Unavailable DARIEL SANCHEZ, DR RAYMUNDO Springer Attending Unavailabl e IBETH ALEJANDRO Consulting Unavailable [facility], [facility] P rimary Care Unavailable LASH-RITTER, TATIANA A Admitting Unavailab le LASH-RITTER, TATIANA A Attending Unavailab le [facility], [facility] P rimary Care Unavailable MUAKKASSA, FARID ANU Admitting Unavailabl e MUAKKASSA, FARID ANU Attending Unavailabl e DIYA MAY Consulting Unavailable [facility] Primary Care Pro vider Jeremiah Rawls MD Emergency Provider Dr. Nicole Trujillo DO Admit Provider Dr. Nicole Trujillo DO Other Provider Benjamin HERNANDEZ, Dr. Luna Other Provider Ashutosh HERNANDEZ, Dr. Talisha Landry Attending Provider Ashutosh HERNANDEZ, Dr. Talisha Landry Other Provider Dr. Davis Ibarra DO Emergency Provider Cuauhtemoc HERNANDEZ, Dr. Gutierrez Admit Provider Cuauhtemoc HERNANDEZ, Dr. Gutierrez Other Provider Dr. Nicole Trujillo DO Attending Provider Tarun HERNANDEZ, Dr. Mix Other Provider Dr. Nicole Trujillo DO Referring Provider Terence SERVICE DESK DIRECTOR-C, Zohreh Primary Care Provider Dr. Riccardo Hillman DO Attending Provider Dr. Riccardo Hillman DO Emergency Provider Dr. Riccardo Ng MD Attending Provider Dr. Vaughn Daugherty DO Emergency Provider Cuauhtemoc HERNANDEZ, Dr. Gutierrez Attending Provider [facility] Primary Care Pro vider Dr. Nicole Trujillo DO Other Provider Willow SANCHEZ, Dr. Mendes Emergency Provider Berenice HERNANDEZ, Dr. Gu Other Provider Agnieszka HERNANDEZ, Dr. Hooker Attending Provider Unavaila ble Agnieszka HERNANDEZ, Dr. Hooker Other Provider Unavailable Daryl HERNANDEZ, Dr. Carson Attending Provider Dr. Jeison Abrams DO Referring Provider Berenice HERNANDEZ, Dr. Gu Referring Provider Stephie SANCHEZ, Dr. Dixon Emergency Provider Rosa Maria HERNANDEZ, Dr. Rosaura Springer Admit Provider Rosa Maria HERNANDEZ, Dr. Rosaura Springer Attending Provider Stephie SANCHEZ, Dr. Dixon Attending Provider Rosa Maria HERNANDEZ, Dr. Rosaura Springer Other Provider Cuauhtemoc HERNANDEZ, Dr. Gutierrez Attending Provider Chandni HERNANDEZ, Dr. Amish Bashir Other Provider [facility] Primary Care Provider Cuauhtemoc HERNANDEZ, Dr. Gutierrez Admit Provider Cuauhtemoc HERNANDEZ, Dr. Gutierrez Other Provider Dr. Nicole Trujillo DO Other Provider Dr. Nicole Trujillo DO Attending Provider Dr. Davis Ibarra DO Emergency Provider Dr. Nichelle Mcneil MD Other Provider Dr. Riccardo Hillman DO Attending Provider Dr. Riccardo Hillman DO Emergency Provider Dr. Derek Paniagua MD Referring Provider Dr. Derek Paniagua MD Emergency Provider Terence [facility] Primary Care Unavailabl e Derek Paniagua Referring Unavailable Derek Paniagua Attending Unavailable [facility] Unavailabl Zack Car Attending Unavailable Talisha Boykin Attending Unavailable [facility] Unavailable Rosaura Crane Admitting Unavailable Rosaura Crane Consulting Unavailable Nicole Trujillo Admitting Unavailable Nicole Trujillo Consulting Unavailable [facility] Unavailable Talisha Boykin Attending Unavailable Jeremy Alexander Consulting Unavailable Nichelle Mcneil Attending Unavailable [facility] Unavailabl e Nichelle Mcneil Referring Unavailable [facility] Unavailabl e Nichelle Mcneil Attending Unavailable Nichelle Mcneil Referring Unavailable Ronnie Nicole Referring Unavailable Nicole Trujillo Attending Unavailable [facility] Unavailabl e Ronnie Nicole Referring Unavailable Nicole Trujillo Attending Unavailable [facility] Unavailable Jeremiah Rawls Attending Unavailable Nicole Trujillo Attending Unavailable Ronnie Nicole Referring Unavailable [facility] Unavailabl e Ronnie, Nicole Referring Unavailable Roger Trujilloyn Attending Unavailable [facility] Unavailabl e Ronnie, Nicole Referring Unavailable Roger Trujilloyn Attending Unavailable [facility] Unavailabl e Ronnie Nicole Referring Unavailable Nicole Trujillo Attending Unavailable [facility] Unavailable [facility] UnavailZack Edward Attending Unavailable Nichelle Mcneil Attending Unavailable [facility] Unavailabl e Nichelle Mcneil Referring Unavailable Nichelle Mcneil Attending Unavailable [facility] Unavailabl e Tarun Nichelle Referring Unavailable Nichelle Mcneil Attending Unavailable [facility] Unavailabl e Nichelle Mcneil Referring Unavailable Nicole Trujillo Attending Unavailable Brenda Posadas Admitting Unavailable [facility] Unavailabl e Brenda Posadas Consulting Unavailable Riccardo Ng Consulting Unavailable Ronnie Nicole Consulting Unavailable [facility] Unavailabl Rosaura Dominguez Admitting Unavailable Latricia Aaron Attending Unavailable Rosaura Crane Consulting Unavailable Nichelle Mcneil Consulting Unavailable Brenda Posadas Consulting Unavailable Amish Tariq Consulting Unavailable Latricia Aaron Consulting Unavailable Kotsonis, Brandon F Consulting Unavailable Kotseloisas, Brandon F Admitting Unavailable [facility] Unavailable Jeremy Alexander Attending Unavailable Jeremy Alexander Consulting Unavailable Patriciaam Talisha Gris Attending Unavailable [facility] Unavailable White, Rosaura L Consulting Unavailable White, Rosaura L Admitting Unavailable Koram, Talisha Gris Consulting Unavailable [facility] Unavailabl Latricia Rust Attending Unavailable White, Rosaura L Consulting Unavailable White, Rosaura L Admitting Unavailable Nichelle Mcneil Consulting Unavailable PosadasBrenda Consulting Unavailable Amish Tariq Consulting Unavailable Brenda Posadas Attending Unavailable [facility] Unavailabl e White, Rosaura L Consulting Unavailable White, Rosaura L Admitting Unavailable Brenda Posadas Attending Unavailable Brenda Posadas Consulting Unavailable Rosaura Crane L Attending Unavailable Latricia Aaron Attending Unavailable Latricia Aaron Consulting Unavailable Riccardo Ng Attending Unavailable Riccardo Ng Referring Unavailable Nicole Trujillo Attending Unavailable Nicole Trujillo Admitting Unavailable Nicole Trujillo Consulting Unavailable [facility] Unavailable [facility] Unavailabl Alli Head Attending Unavailable [facility] Referring Unavailable Bina Saldana Attending Unavailable Riccardo Ng Attending Unavailable [facility] UnavailJeison Garcia Referring Unavailable Nicole Trujillo Attending Unavailable Brenda Posadas Admitting Unavailable Brenda Posadas Consulting Unavailable [facility] Unavailable Nichelle Mcneil Consulting Unavailable Nicole Trujillo Consulting Unavailable Nicole Trujillo Referring Unavailable Nicole Trujillo Attending Unavailable [facility] Unavailabl e Nichelle Mcneil Referring Unavailable Nichelle Mcneil Attending Unavailable Nichelle Mcneil Attending Unavailable [facility] Unavailabl e Nichelle Mcneil Referring Unavailable Gigionis, Brandon F Admitting Unavailable GigionisSonuBrandon F Consulting Unavailable [facility] Unavailable Benjamin, Jeremy Attending Unavailable Posadas, Brenda Admitting Unavailable Posadas, Brenda Consulting Unavailable Latricia Aaron Attending Unavailable [facility] UnavailRiccardo Bourne Consulting Unavailable Nicole Trujillo Consulting Unavailable Riccardo Hillman Attending Unavailable [facility] Unavailabl e Nicole Trujillo Attending Unavailable Posadas, Brenda Admitting Unavailable [facility] Unavailable Cuauhtemoc, Brenda Consulting Unavailable Nichelle Mcneil Consulting Unavailable Nicole Trujillo Referring Unavailable Nicole Trujillo Attending Unavailable [facility] Unavailabl e [facility] UnavailRiccardo Hutchinson Attending Unavailable Brandon Adames Attending Unavailable Posadas, Brenda Admitting Unavailable Posadas, Brenda Consulting Unavailable [facility] Unavailabl Brenda Vasquez Attending Unavailable Posadas, Brenda Admitting Unavailable [facility] Unavailable Posadas, Brenda Consulting Unavailable Brenda Posadas Attending Unavailable Talisha Boykin Attending Unavailable Jeremy Alexander Consulting Unavailable Rosie Boykina Gris Consulting Unavailable Jeremy Alexander Attending Unavailable Rosaura Crane Attending Unavailable Nichelle Mcneil Attending Unavailable [facility] UnavailNichelle Holly Referring Unavailable Allergies Allergy Classification Reported Allergen(s) Allergy Type Date of Onset Reaction(s) Facility (20 sources) Latex; Translations: [LATEX] Propensity to adverse reactions to drug (disorder) 1 Itching [facility] Other [place] Rep[facility] Medications Current Medications Medication Drug Class(es) Dates Sig (Normalized) Sig (Original) acetaminophen 325 mg oral tablet (20 sources) Start: 09-16-2024 Start: 09-02-2024 Start: 09-07-2023 take 3 tablets by mo uth every six hours as needed acetaminophen (TYLENOL) 325 mg tablet Take 3 tablets by mouth every 6 hours as needed for pain. 09/07/2023 Active Start: 08-21-2019 take 2 tablets by mo uth every four hours as needed acetaminophen 325 mg oral tablet ; 2 tab(s) orally every 4 hours, As needed, Pain - Mild (1-3) Quantity: 0 Refills: 0 Ordered: 21-Aug-2019 Sara Willis Start: 21-Aug-2019 Generic Substitution Allowed Comment on above: Take 3 tablets by mo [facility] every 6 hours as needed for pain. [id number] 200 actuat albuterol 0.09 mg/actuat metered dose inhaler (11 sources) beta2-Adrenergic Agonist Start: 01-14-2018 take 2 puff(s) by inhalation every four hours as needed for wheezing VENTOLIN HFA 90 mcg/actuation inhaler Inhale 2 Puffs as instructed every 4 hours as needed for Wheezing/Shortness of Breath. 18 g 01/14/2018 Active Start: 01-14-2018 take 2 puff(s) by in halation every four hours as needed albuterol (Ventolin HFA) 108 (90 Base) MCG/ACT inhaler Inhale 2 puffs every 4 hours as needed. 0 01/14/2018 Active Comment on above: Inhale 2 Puffs as in structed every 4 hours as needed for Wheezing/Shortness of Breath. aluminum hydroxide 40 mg/ml / magnesium hydroxide 40 mg/ml / simethicone 4 mg/ml oral suspension (1 source) Start: 08-21-19 20 take 30 mL by mouth every six hours as needed magnesium hydroxide/aluminum hydroxide/simethico ne 200 mg-200 mg-20 mg/5 mL oral suspension ; 30 milliliter(s) orally every 6 hours, As needed, Dyspepsia Quantity: 0 Refills: 0 Ordered: 21-Aug-2019 Sara Willis Start: 21-Aug-2019 Status: Discontinued Generic Substitution Allowed Aspirin (20 sources) Platelet Aggregation Inhibitor, Nonsteroidal Anti-inflammatory Drug Start: 08-11-19 23 take 81 mg by mouth once daily Aspirin Active 81 MG PO DAILY August 10, 2022 1:00am Start: 08-10-2022 Start: 12-09-2017 take 1 tablet by gurvinder th once daily aspirin, enteric coated (ASPIRIN, ENTERIC COATED) 81 mg EC tablet Take 1 tablet by mouth once daily. 30 tablet 2 12/09/2017 Active take 1 tablet by gurvinder th once daily aspirin 81 mg oral tablet, chewable ; 1 tab(s) orally once a day Quantity: 0 Refills: 0 Ordered: 29-Sep-2019 Francisca Ferrer Generic Substitution Allowed Comment on above: Take 1 tablet by gurvinder th once daily. benzocaine 0.2 mg/mg oral gel (1 source) Standardized Chemical Allergen Start: 01-25-2016 Benzocaine-Clove Oil 20 % gel Take 20 mg by mouth in the morning. 0 01/25/2016 Active Blood Pressure Monitor (BLOOD PRESSURE KIT) kit (10 sources) Start: 12-13-2017 Blood Pressure Monitor (BLOOD PRESSURE KIT) kit Indications: Other cardiomyopathy (HCC) , Primary hypertension 1 Each once daily. 1 Kit 12/13/2017 Active Start: 12-13-2017 Blood Pressure Monitor (BLOOD PRESSURE KIT) kit Indications: Other cardiomyopathy (HCC) , Primary hypertension 1 Each once daily. 1 Kit 0 12/13/2017 Active Comment on above: 1 Each once daily. Blood-Glucose Meter (FREESTYLE LITE METER) monitoring kit (10 sources) Start: 07-03-2019 Blood-Glucose Meter (FREESTYLE LITE METER) monitoring kit Check sugars 4 times a day DX E11.8 1 Each 07/03/2019 Active Start: 07-03-2019 Blood-Glucose Meter (FREESTYLE LITE METER) monitoring kit Check sugars 4 times a day DX E11.8 1 Each 0 07/03/2019 Active Comment on above: Check sugars 4 times a day DX E11.8 cephalexin 500 mg oral tablet (3 sources) Cephalosporin Antibacterial Start: 2 End: 2 take 1 tablet by mouth three times daily cephalexin 500 mg oral tablet ; 1 tab(s) orally 3 times a day x 7 days Quantity: 21 Refills: 0 Ordered: 13-Aug-2021 Moconniew, Alex I Start: 13-Aug-2021 End: 19-Aug-2021 Generic Substitution Allowed Comments: Finish all this medication unless otherwise directed by prescriber. Start: 08-13-2021 cephalexin (Ke flex) 500 MG capsule TAKE 1 CAPSULE THREE TIMES DAILY for 7 days. 0 08/13/2021 Active Start: 08-04-2019 End: 08-10-2019 take 1 capsule by mouth three times daily Keflex 500 mg oral capsule ; 1 cap(s) orally 3 times a day x 7 days Quantity: 21 Refills: 0 Ordered: 04-Aug-2019 Moomaw, Alex I Start: 04-Aug-2019 End: 10-Aug-2019 Status: Discontinued Generic Substitution Allowed Comments: Finish all this medication unless otherwise directed by prescriber. Comment on above: Finish all this medi cation unless otherwise directed by prescriber. docusate sodium 50 mg / sennosides, fci 8.6 mg oral tablet (20 sources) Start: 09-16-2024 Start: 02-17-2024 End: 06-29-2024 Start: 09-07-2023 take 1 tablet by mouth twice d aily senna-docusate (SENNA-S) 8.6-50 mg per tablet Take 1 tablet by mouth two times a day. 09/07/2023 Active Comment on above: Take 1 tablet by gurvinder th two times a day. ergocalciferol 1.25 mg oral capsule (9 sources) Provitamin D2 Compound Start: 02-19-2024 ertapenem 1000 mg injection (5 sources) Penem Antibacterial Start: 09-16-2024 escitalopram 20 mg oral tabl et (20 sources) Serotonin Reuptake Inhibitor Start: 06-29-2024 Start: 08-30-2022 End: 05-03-2023 Start: 06-25-2019 End: 07-24-2019 take 1 tablet by mouth once daily escitalopram 20 mg oral tablet ; 1 tab(s) orally once a day Quantity: 30 Refills: 0 Ordered: 25-Jun-2019 Sara Willis Start: 25-Jun-2019 End: 24-Jul-2019 Status: Discontinued Generic Substitution Allowed Comment on above: Take 10 mg by mouth once daily. famotidine 20 mg oral tablet (1 source) Histamine-2 Receptor Antagonist Start: 0 take 1 tablet by mouth twice daily famotidine 20 mg oral tablet ; 1 tab(s) orally 2 times a day Quantity: 0 Refills: 0 Ordered: 21-Aug-2019 Sara Willis Start: 21-Aug-2019 Status: Discontinued Generic Substitution Allowed furosemide 20 mg oral tablet (20 sources) Loop Diuretic Start: Start: 02-03-2023 End: 02-17-2024 Start: 02-03-2023 End: 05-07-2023 take 1 tablet by mouth once daily Furosemide (Lasix) 40 mg tablet Discontinued 40 MG PO DAILY February 03, 2023 12:00am May 07, 2023 12:24pm Start: 01-03-2023 End: 02-28-2023 Start: 01-03-2023 End: 02-03-2023 take 1 tablet by mouth once daily Furosemide (Lasix) 20 mg tablet Discontinued 20 MG PO DAILY January 03, 2023 12:00am February 03, 2023 3:34pm Start: 09-30-2019 End: 10-29-2019 take 1 tablet by mouth once daily as needed, then take 2 tablets by mouth once daily as needed Lasix 20 mg oral tablet ; 1 tab(s) orally once a day, As Needed for weight gain > 2kg in 24 hours. If weight still increasing, can take up to 2 tablets a day. Quantity: 30 Refills: 0 Ordered: 30-Sep-2019 Lilly Barfield Start: 30-Sep-2019 End: 29-Oct-2019 Generic Substitution Allowed Comment on above: Take 40 mg by mouth two times a day. hydrocortisone 0.01 mg/mg topical ointment (1 source) Corticosteroid Start: 04-12-2022 hydrocortisone 1 % ointment apply twice daily to affected area for one week 0 04/12/2022 Active 3 ml insulin glargine 100 unt/ml pen injector (20 sources) Insulin Analog Start: 12-29-2023 End: 09-07-2024 Start: 11-14-2023 End: 11-19-2023 Start: 07-25-2022 End: 01-03-2023 Insulin Glargine (Lantus Tabby ostar U-100 Insulin) 100 unit/mL (3 mL) insulin pen Discontinued 10 UNITS SC TWICE A DAY July 25, 2022 10:23am January 03, 2023 10:20am Start: 08-05-2021 End: 01-03-2023 Start: 08-05-2021 End: 07-25-2022 Insulin Glargine (Lantus Tabby ostar U-100 Insulin) 100 unit/mL (3 mL) Insulin Pen Discontinued 10 UNITS SC AT BEDTIME 08 31August 05, 2021 1:00am July 25, 2022 10:24am Start: 08-21-2019 inject 40 [IU] by del castillo bcutaneous injection once at bedtime insulin glargine 100 units/mL subcutaneous solution ; 40 unit(s) subcutaneous once (at bedtime) Quantity: 0 Refills: 0 Ordered: 21-Aug-2019 Sara Willis Start: 21-Aug-2019 Generic Substitution Allowed Start: 06-25-2019 End: 07-24-2019 Basaglar KwikPen 100 units/m L subcutaneous solution ; 40 unit(s) subcutaneous once a day (at bedtime) Quantity: 3 Refills: 0 Ordered: 25-Jun-2019 Sara Willis Start: 25-Jun-2019 End: 24-Jul-2019 Status: Discontinued Generic Substitution Allowed Start: 12-13-2017 insulin glargi ne (LANTUS SOLOSTAR, BASAGLAR KWIKPEN) 100 unit/mL (3 mL) inpn Indications: 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 10 Pen 3 12/13/2017 Active Start: 12-13-2017 inject 40 [IU] by del castillo bcutaneous injection in the morning insulin glargine (Lantus) 100 UNIT/ML pen Inject 40 Units under the skin in the morning and 40 Units in the evening. 0 12/13/2017 Active Comment on above: Inject 40 Units subc utaneously twice daily. Insulin Glargine (Lantus U-100 Insulin) 100 unit/mL solution (16 sources) Start: 06-16-2023 Insulin Glargine (Lantus U-100 Insulin) 100 unit/mL solution Active 20 UNIT SC TWICE A DAY June 16, 2023 10:18am Hold if glucose less than 130 mg/dl Start: 06-16-2023 Insulin Glargi ne (Lantus U-100 Insulin) 100 unit/mL solution Active 20 UNIT SC TWICE A DAY June 16, 2023 9:18am Hold if glucose less than 130 mg/dl Start: 02-27-2023 End: 06-16-2023 Insulin Glargine (Lantus U-1 00 Insulin) 100 unit/mL solution Discontinued 25 UNIT SC TWICE A DAY February 27, 2023 12:00am June 16, 2023 10:18am Start: 02-27-2023 End: 06-16-2023 Insulin Glargine (Lantus U-1 00 Insulin) 100 unit/mL solution Discontinued 25 UNIT SC TWICE A DAY February 26, 2023 11:00pm June 16, 2023 9:18am Start: 02-27-2023 Insulin Glargi ne (Lantus U-100 Insulin) 100 unit/mL solution Active 25 UNIT SC TWICE A DAY February 26, 2023 11:00pm 0.5 unt doses 3 ml insulin l ispro 100 unt/ml pen injector (20 sources) Insulin Analog Start: 12-29-2023 Start: 11-14-2023 End: 11-19-2023 Start: 08-05-2021 insulin lispro (HumaLOG) 100 UNIT/ML injection INJECT 5 (FIVE) units THREE TIMES DAILY with meals. 0 08/05/2021 Active Start: 08-05-2021 Insulin Lispro (Humalog Kwikpen Insulin) 100 unit/mL Insulin Pen Active 5 UNIT SC WITH BREAKFAST 1.5 August 05, 2021 12:00am Start: 08-21-2019 insulin lispro 100 units/mL injectable solution ; Use House sliding scale per PCP Quantity: 1 Refills: 0 Ordered: 21-Aug-2019 Sara Willis Start: 21-Aug-2019 Generic Substitution Allowed isopropyl alcohol 0.7 ml/ml medicated pad (1 source) Start: 04-12-2022 Alcohol Swabs (Alcohol Prep) 70 % pads use daily to check blood sugar and provide insulin injections 0 04/12/2022 Active ivermectin 3 mg oral tablet (2 sources) Antiparasitic, Pediculicide Start: 08-09-2022 take 12 mg by mouth once Ivermectin Active 12 MG PO ONE TIME August 09, 2022 1:00am lidocaine 0.05 mg/mg medicated patch (5 sources) Antiarrhythmic, Amide Local Anesthetic Start: 09-16-2024 LORazepam 0.5 mg oral tablet (1 source) Benzodiazepine Start: 08-21-2019 take 1 tablet by mouth every six hours as needed LORazepam 0.5 mg oral tablet ; 1 tab(s) orally every 6 hours, As needed, acute anxietyDX: F41.1 Quantity: 10 Refills: 0 Ordered: 21-Aug-2019 Sara Willis Start: 21-Aug-2019 Generic Substitution Allowed metoclopramide 5 mg oral tablet (6 sources) Dopamine-2 Receptor Antagonist Start: 09-29-2024 Start: 09-21-2024 Start: 08-21-2019 take 1 tablet by gurvinder th three times daily before mealtime metoclopramide 10 mg oral tablet ; 1 tab(s) orally 3 times a day (before meals) Quantity: 0 Refills: 0 Ordered: 21-Aug-2019 Sara Willis Start: 21-Aug-2019 Status: Discontinued Generic Substitution Allowed 24 hr metoprolol succinate 25 mg extended release oral tablet (2 sources) beta-Adrenergic Linda Start: 12-08-2017 take 1 tablet by mouth once daily metoprolol succinate XL (Toprol-XL) 25 MG 24 hr tablet Take 1 tablet by mouth Nightly. 0 12/08/2017 Active midodrine hydrochloride 2.5 mg oral tablet (20 sources) alpha-Adrenergic Agonist Start: 06-29-2024 Start: 10-07-2023 End: 04-25-2024 ondansetron 4 mg disintegrat ing oral tablet (20 sources) Serotonin-3 Receptor Antagonist Start: 09-05-2024 Start: 06-29-2024 End: 09-07-2024 Start: 05-23-2024 End: 05-28-2024 Zofran 4 mg oral tablet Dose : 4 mg = 1 tab(s), Oral, q8h, X 5 day(s), # 15 tab(s), 0 Refill(s), 05/28/24 11:02:00 PM EST Start Date: 05/23/24 Stop Date: 05/28/24 Status: Ordered Quantity: 15.0 Unit: tab(s) Repeat number: 1 Start: 01-10-2024 End: 02-14-2024 Start: 06-19-2023 End: 11-14-2023 Start: 05-22-2023 End: 06-13-2023 Start: 09-10-2022 End: 01-03-2023 Start: 05-10-2022 take 4 mg by mouth t hree times daily Ondansetron Active 4 MG PO THREE TIMES A DAY May 10, 2022 12:37am Start: 03-27-2022 take 4 mg by mouth e very six hours Ondansetron Hcl Active 4 MG PO EVERY 6 HOURS March 26, 2022 11:00pm Start: 08-26-2021 End: 08-09-2022 Start: 07-01-2019 take 1 tablet by gurvinder th three times daily as needed for nausea Zofran ODT 4 mg oral tablet, disintegrating ; 1 tab(s) orally 3 times a day, As Needed for nausea/vomiting Quantity: 20 Refills: 0 Ordered: 01-Jul-2019 Lazaro Sara L Start: 01-Jul-2019 Status: Discontinued Generic Substitution Allowed Start: 10-04-2018 End: 06-13-2023 take 1 tablet by mouth every six hours as needed ondansetron orally disintegrating (ZOFRAN ODT) 4 mg disintegrating tablet Take 1 tablet by mouth every 6 hours as needed. 10 tablet 10/04/2018 Active Comment on above: Take 1 tablet by gurvinder every 6 hours as needed. oseltamivir 75 mg oral capsule (2 sources) Neuraminidase Inhibitor Start: 05-10-20 take 1 capsule by mouth twice daily Oseltamivir (Tamiflu) 75 mg capsule Active 75 MG PO TWICE A DAY 03 08May 10, 2022 12:00am oxyCODONE hydrochloride 5 mg oral tablet (20 sources) Opioid Agonist Start: 09-17-19 Start: 09-02-2024 End: 09-05-2024 Start: 02-19-2024 End: 04-25-2024 Start: 10-15-2023 End: 12-29-2023 Start: 01-03-2023 End: 02-02-2023 Start: 01-03-2023 End: 02-02-2023 take 10 mg by mouth every six hours as needed Oxycodone Discontinued 10 MG PO EVERY 6 HOURS NEEDED 21 09January 03, 2023 February 02, 2023 3:46pm Start: 09-02-2022 End: 01-01-2023 Start: 09-02-2022 End: 01-01-2023 take 650 mg by mouth four times daily Oxycodone Discontinued 5 - 10 MG PO EVERY 6 HOURS 31 10September 02, 2022 January 01, 2023 4:11pm may take with 650 mg Tylenol four times a day pantoprazole 40 mg delayed r elease oral tablet (20 sources) Proton Pump Inhibitor Start: 04-18-2023 Start: 09-26-2019 End: 11-24-2019 take 1 tablet by mouth once daily Protonix 40 mg oral delayed release tablet ; 1 tab(s) orally once a day Quantity: 30 Refills: 1 Ordered: 26-Sep-2019 Gadiel Maria Start: 26-Sep-2019 End: 24-Nov-2019 Generic Substitution Allowed Comments: It is very important that you take or use this exactly as directed. Do not skip doses or discontinue unless directed by your doctor.Obtain medical advice before taking any non-prescription drugs as some may affect the action of this medication.Swallow whole. Do not crush. Comment on above: It is very important that you take or use this exactly as directed. Do not skip doses or discontinue unless directed by your doctor.Obtain medical advice before taking any non-prescription drugs as some may affect the action of this medication.Swallow whole. Do not crush. Take 40 mg by mouth once daily. permethrin 10 mg/ml medicated shampoo (1 source) Pyrethroid Start: 04-12-2022 SM Lice Treatment 1 % lotion . Apply solution to saturate scalp/hair. Leave on for TEN minutes and rinse with warm water. 0 04/12/2022 Active polyethylene glycol 3350 27308 mg powder for oral solution (20 sources) Osmotic Laxative Start: 02-19-2024 End: 06-29-2024 Start: 09-07-2023 polyethylene g lycol 3350 17 gram packet Take 1 Packet by mouth once daily. Dissolve dose in 4 - 8 ounces of liquid and take as directed. 09/07/2023 Active Comment on above: Take 1 Packet by gurvinder th once daily. Dissolve dose in 4 - 8 ounces of liquid and take as directed. prochlorperazine 5 mg oral tablet (20 sources) Phenothiazine Start: 024 take 1 tablet by mouth every six hours as needed prochlorperazine (COMPAZINE) 5 mg tablet Take 1 tablet by mouth every 6 hours as needed for nausea/vomiting. 09/07/2023 Active Start: 01-03-2023 End: 02-02-2023 Comment on above: Take 1 tablet by gurvinder th every 6 hours as needed for nausea/vomiting. 12 hr ranolazine 500 mg extended release oral tablet (1 source) Anti-anginal Start: 09-26-19 19 take 1 tablet by mouth every twelve hours in the morning ranolazine (Ranexa) 500 MG 12 hr tablet Take 500 mg by mouth in the morning and 500 mg in the evening. 0 09/25/2018 Active sacubitril 24 mg / valsartan 26 mg oral tablet (18 sources) Angiotensin 2 Receptor Linda Start: 05-07-20 take 1 tablet by mouth twice daily ENTRESTO 24-26 mg tablet Take 1 tablet by mouth two times a day. 05/07/2023 Active Comment on above: Take 1 tablet by gurvinder th two times a day. spironolactone 25 mg oral tablet (20 sources) Aldosterone Antagonist Start: 12-29-19 End: 02-17-20 Start: 11-19-2023 End: 12-29-2023 Start: 11-14-2023 End: 11-19-2023 Start: 06-16-2023 End: 11-14-2023 Start: 06-16-2023 Spironolactone Active 50 MG PO DAILY June 16, 2023 1:00am Hold for hyperkalemia, serum potassium more than 5.0 Start: 05-07-2023 End: 06-16-2023 Start: 09-26-2019 End: 11-24-2019 take 1 tablet by mouth twice daily Aldactone 25 mg oral tablet ; 0.5 tab(s) orally 2 times a day Quantity: 30 Refills: 1 Ordered: 26-Sep-2019 Gadiel Maria Start: 26-Sep-2019 End: 24-Nov-2019 Generic Substitution Allowed Comments: It is very important that you take or use this exactly as directed. Do not skip doses or discontinue unless directed by your doctor.May cause drowsiness or dizziness. Comment on above: It is very important that you take or use this exactly as directed. Do not skip doses or discontinue unless directed by your doctor.May cause drowsiness or dizziness. Take 50 mg by mouth once daily. sulfamethoxazole 800 mg / trimethoprim 160 mg oral tablet (2 sources) Dihydrofolate Reductase Inhibitor Antibacterial, Sulfonamide Antimicrobial Start: 08-14-19 End: 08-20-19 take 1 tablet by mouth twice daily Bactrim DS 800 mg-160 mg oral tablet ; 1 tab(s) orally 2 times a day x 7 days Quantity: 14 Refills: 0 Ordered: 13-Aug-2021 Alex Tapia I Start: 13-Aug-2021 End: 19-Aug-2021 Generic Substitution Allowed Comments: Avoid prolonged or excessive exposure to direct and/or artificial sunlight while taking this medication.Finish all this medication unless otherwise directed by prescriber.Medicati on should be taken with plenty of water. Start: 08-13-2021 take 1 tablet by gurvinder th once in the morning sulfamethoxazole-trimethoprim (Bactrim D S) 800-160 MG tablet Take 1 tablet by mouth in the morning and 1 tablet before bedtime. 0 08/13/2021 Active Comment on above: Avoid prolonged or e xcessive exposure to direct and/or artificial sunlight while taking this medication.Finish all this medication unless otherwise directed by prescriber.Medication should be taken with plenty of water. tiZANidine 4 mg oral tablet (9 sources) Central alpha-2 Adrenergic Agonist Start: 06-29-2024 (20 sources) Start: 02-14-2024 Start: 12-29-2023 End: 02-14-2024 Start: 11-19-2023 End: 12-29-2023 Start: 11-19-2023 End: 12-29-2023 Start: 06-16-2023 End: 11-14-2023 Start: 05-07-2023 Start: 02-27-2023 End: 06-16-2023 Completed/Discontinued Medications Medication Drug Class(es) Dates Sig (Normalized) Sig (Original) acetaminophen 325 mg / HYDROcodone bitartrate 5 mg oral tablet (20 sources) Opioid Agonist Start: 08-01-2024 End: 09-05-2024 Start: 04-18-2022 take 1 tablet by gurvinder th every six hours as needed HYDROcodone-acetaminophen ([place]) 5-325 MG tablet Take 1 tablet by mouth every 6 hours as needed. 0 04/18/2022 Active Start: 04-18-2022 take 1 tablet by gurvinder th every six hours Hydrocodone-Acetaminophen Active 1 TABLE T PO EVERY 6 HOURS 12 April 18, 2022 Start: 06-11-2019 End: 06-13-2019 take 1 tablet by mouth every six hours as needed hydrocodone-acetaminophen 5 mg-325 mg or al tablet ; 1 tab(s) orally every 6 hours x 3 days, As Needed Quantity: 12 Refills: 0 Ordered: 11-Jun-2019 Latricia Kathleen Start: 11-Jun-2019 End: 13-Jun-2019 Status: Discontinued Generic Substitution Allowed Comments: Caution federal law prohibits the transfer of this drug to any person other than the person for whom it was prescribed.May cause drowsiness. Alcohol may intensify this effect. Use care when operating dangerous machinery.This product contains acetaminophen. Do not use with any other product containing acetaminophen to prevent possible liver damage.Using more of this medication than prescribed may cause serious breathing problems. Comment on above: Caution federal law prohibits the transfer of this drug to any person other than the person for whom it was prescribed.May cause drowsiness. Alcohol may intensify this effect. Use care when operating dangerous machinery.This product contains acetaminophen. Do not use with any other product containing acetaminophen to prevent possible liver damage.Using more of this medication than prescribed may cause serious breathing problems. acetaminophen 325 mg / oxyCODONE hydrochloride 5 mg oral tablet (20 sources) Opioid Agonist Start: 05-26-2023 End: 06-13-2023 Start: 05-26-2023 End: 06-13-2023 take 1 tablet by mouth every eight hours Oxycodone-Acetaminophen (Percocet) 5-325 mg tablet Discontinued 1 TABLET PO Q8H 15 10May 26, 2023 June 13, 2023 1:08am Start: 09-10-2022 End: 01-01-2023 take 1 tablet by mouth every eight hours Oxycodone-Acetaminophen (Percocet) 5-325 mg tablet Discontinued 1 TABLET PO Q8H 03 07September 18, 2022 January 01, 2023 4:12pm Start: 09-05-2022 End: 01-01-2023 Start: 09-05-2022 End: 01-01-2023 take 1 tablet by mouth every six hours as needed Oxycodone-Acetaminophen Discontinued 1 TABLET PO EVERY 6 HOURS NEEDED 05 06September 05, 2022 January 01, 2023 4:11pm Start: 09-05-2022 Start: 08-14-2022 take 1 tablet by gurvinder th every six hours Oxycodone-Acetaminophen (Percocet) 5-325 mg tablet Active 1 TABLET PO EVERY 6 HOURS 05 06August 14, 2022 Start: 04-24-2022 End: 04-26-2022 Start: 04-24-2022 End: 04-26-2022 take 1-2 tablets by mouth every six hours as needed Oxycodone-Acetaminophen Discontinued 0 P O EVERY 6 HOURS 12 April 24, 2022 April 26, 2022 1:03am 1-2 tablets orally every 6 hours PRN; Start: 04-24-2022 End: 04-26-2022 Start: 04-24-2022 take 1 tablet by gurvinder th every six hours Oxycodone-Acetaminophen (Percocet) 5-325 mg tablet Active 1 TABLET PO EVERY 6 HOURS 12 May 19, 2022 Start: 08-13-2021 take 1 tablet by gurvinder th three times daily as needed for pain oxycodone-acetaminophen 5 mg-325 mg oral tablet ; 1 tab(s) orally 3 times a day, As Needed for pain Quantity: 10 Refills: 0 Ordered: 13-Aug-2021 Alex Tapia I Start: 13-Aug-2021 Generic Substitution Allowed Comments: Caution federal law prohibits the transfer of this drug to any person other than the person for whom it was prescribed.May cause drowsiness. Alcohol may intensify this effect. Use care when operating dangerous machinery.This prescription cannot be refilled.This product contains acetaminophen. Do not use with any other product containing acetaminophen to prevent possible liver damage.Using more of this medication than prescribed may cause serious breathing problems. Start: 08-08-2021 take 1 tablet by gurvinder th every six hours Oxycodone-Acetaminophen (Percocet) 5-325 mg tablet Active 1 TABLET PO EVERY 6 HOURS 12 August 08, 2021 Start: 08-21-2019 take 2 tablets by mo [facility] every four hours as needed oxycodone-acetaminophen 5 mg-325 mg oral tablet ; 2 tab(s) orally every 4 hours, As needed, Pain - Severe (7-10)Dx: M86.172 Quantity: 12 Refills: 0 Ordered: 21-Aug-2019 Sara Willis Start: 21-Aug-2019 Status: Discontinued Generic Substitution Allowed Comment on above: Caution federal law prohibits the transfer of this drug to any person other than the person for whom it was prescribed.May cause drowsiness. Alcohol may intensify this effect. Use care when operating dangerous machinery.This prescription cannot be refilled.This product contains acetaminophen. Do not use with any other product containing acetaminophen to prevent possible liver damage.Using more of this medication than prescribed may cause serious breathing problems. alendronic acid 70 mg oral tablet (20 sources) Bisphosphonate Start: 01-29-2023 End: 02-02-2023 Start: 07-25-2022 End: 01-03-2023 amoxicillin 875 mg oral tablet (1 source) Penicillin-class Antibacterial Start: 06-11-2019 End: 06-17-2019 take 1 tablet by mouth every twelve hours amoxicillin 875 mg oral tablet ; 1 tab(s) orally every 12 hours x 7 days Quantity: 14 Refills: 0 Ordered: 11-Jun-2019 Latricia Kathleen Start: 11-Jun-2019 End: 17-Jun-2019 Status: Discontinued Generic Substitution Allowed Comments: Finish all this medication unless otherwise directed by prescriber. Comment on above: Finish all this medi cation unless otherwise directed by prescriber. amoxicillin 875 mg / clavulanate 125 mg oral tablet (20 sources) Penicillin-class Antibacterial Start: 09-02-2022 End: 01-01-2023 Start: 09-02-2022 End: 01-01-2023 take 1 tablet by mouth twice daily at mealtime Amoxicillin-Pot Clavulanate Discontinued 1 TABLET PO TWICE A DAY September 02, 2022 12:00am January 01, 2023 4:09pm take with food, start with dinner tonite Start: 09-02-2022 Start: 09-26-2019 End: 09-29-2019 take 1 tablet by mouth twice daily at mealtime Augmentin 875 mg-125 mg oral tablet ; 1 tab(s) orally 2 times a day Quantity: 8 Refills: 0 Ordered: 26-Sep-2019 Gadiel Maria Start: 26-Sep-2019 End: 29-Sep-2019 Status: Other Generic Substitution Allowed Comments: Finish all this medication unless otherwise directed by prescriber.Take with food or milk. Comment on above: Finish all this medi cation unless otherwise directed by prescriber.Take with food or milk. atorvastatin 80 mg oral tabl et (20 sources) HMG-CoA Reductase Inhibitor Start: 12-08-2017 End: 12-29-2023 Comment on above: Avoid grapefruit and grapefruit juice while taking this medication.Do not take this drug if you are .It is very important that you take or use this exactly as directed. Do not skip doses or discontinue unless directed by your doctor.Obtain medical advice before taking any non-prescription drugs as some may affect the action of this medication.Take with food or milk. Take 1 tablet by gurvinder th daily at bedtime. baclofen 10 mg oral tablet (13 sources) gamma-Aminobutyric Acid-ergic Agonist Start: 11-19-2023 End: 12-29-2023 Start: 10-13-2023 take 1 tablet by gurvinder th twice daily baclofen 5 mg tablet Take 5 mg by mouth two times a day. 10/13/2023 Active Start: 09-25-2018 take 1 tablet by gurvinder th every eight hours as needed baclofen (Lioresal) 5 MG tablet Take 5 mg by mouth every 8 hours as needed. 0 09/25/2018 Active busPIRone hydrochloride 5 mg oral tablet (2 sources) Start: 06-25-2019 End: 07-24-2019 take 1 tablet by mouth every eight hours busPIRone 5 mg oral tablet ; 1 tab(s) orally every 8 hours Quantity: 90 Refills: 0 Ordered: 25-Jun-2019 Sara Willis Start: 25-Jun-2019 End: 24-Jul-2019 Generic Substitution Allowed calcium carbonate 1250 mg oral tablet (20 sources) Start: 11-19-2023 End: 12-29-2023 Start: 08-09-2022 End: 11-14-2023 Start: 08-09-2022 take 1 tablet by gurvinder th once daily Calcium Carbonate Active 1 TAB PO DAILY August 09, 2022 1:00am Start: 08-09-2022 carvedilol 12.5 mg oral tablet (20 sources) alpha-Adrenergic Linda, beta-Adrenergic Linda Start: 01-10-2024 End: 02-19-2024 Start: 12-29-2023 End: 02-19-2024 Start: 11-14-2023 End: 11-19-2023 Start: 05-07-2023 End: 12-29-2023 Start: 03-22-2023 End: 05-07-2023 Start: 02-28-2023 End: 03-22-2023 Start: 02-03-2023 End: 02-28-2023 Start: 09-02-2022 End: 02-03-2023 Comment on above: Take 12.5 mg by mout h two times a day. cholecalciferol 0.025 mg ora l tablet (20 sources) Vitamin D Start: 07-25-2022 End: 12-29-2023 Comment on above: Take 1,000 Units by mouth once daily. cilostazol 50 mg oral tablet (20 sources) Phosphodiesterase 3 Inhibitor Start: 08-09-2022 End: 01-03-2023 ciprofloxacin 500 mg oral ta blet (9 sources) Quinolone Antimicrobial Start: 04-29-2024 End: 06-29-2024 clopidogrel 75 mg oral table t (20 sources) P2Y12 Platelet Inhibitor Start: 08-09-2022 End: 02-27-2023 Comment on above: Take 75 mg by mouth once daily. cyclobenzaprine hydrochlorid e 5 mg oral tablet (9 sources) Muscle Relaxant Start: 01-01-2024 End: 02-17-2024 dapagliflozin 10 mg oral tab let (20 sources) Sodium-Glucose Cotransporter 2 Inhibitor Start: 03-26-2023 End: 04-25-2024 Comment on above: Take 10 mg by mouth once daily. 24 hr desvenlafaxine succina te 25 mg extended release oral tablet (20 sources) Serotonin and Norepinephrine Reuptake Inhibitor Start: 08-09-2022 End: 01-03-2023 Start: 08-09-2022 End: 01-03-2023 Desvenlafaxine Succinate Dis continued 1 EACH PO DAILY August 09, 2022 1:00am January 03, 2023 10:19am Start: 08-09-2022 diclofenac sodium 0.01 mg/mg topical gel (2 sources) Nonsteroidal Anti-inflammatory Drug Start: 09-30-2019 End: 11-28-2019 diclofenac 1% topical gel ; Apply topically to affected area 4 times a day Quantity: 50 Refills: 1 Ordered: 30-Sep-2019 Lilly Barfield Start: 30-Sep-2019 End: 28-Nov-2019 Generic Substitution Allowed dicyclomine hydrochloride 20 mg oral tablet (20 sources) Anticholinergic Start: 08-03-2022 End: 01-03-2023 Start: 08-06-2017 dicyclomine (B entyl) 20 MG tablet Take 20 mg by mouth in the morning and 20 mg at noon and 20 mg in the evening and 20 mg before bedtime. 0 08/06/2017 Active docusate sodium 100 mg oral capsule (10 sources) Start: 11-19-2023 End: 12-29-2023 Start: 07-01-2019 take 1 capsule by mo uth twice daily, then take 1 capsule by mouth once daily Colace 100 mg oral capsule ; 1 cap(s) orally 2 times a day - may decrease dose to once daily if stools become loose Quantity: 30 Refills: 0 Ordered: 01-Jul-2019 Sara Willis Start: 01-Jul-2019 Generic Substitution Allowed Comments: Medication should be taken with plenty of water. Comment on above: Medication should be taken with plenty of water. Dulaglutide (20 sources) GLP-1 Receptor Agonist Start: 02-02-2023 End: 06-13-2023 Start: 02-02-2023 End: 06-13-2023 Dulaglutide (Trulicity) 3 mg /0.5 mL pen injector Discontinued 3 MG SC EVERY WEEK February 02, 2023 12:00am June 13, 2023 1:08am Start: 02-02-2023 End: 06-13-2023 Dulaglutide (Trulicity) 3 mg /0.5 mL pen injector Discontinued 3 MG SC EVERY WEEK February 01, 2023 11:00pm June 13, 2023 12:08am Start: 02-02-2023 Dulaglutide (T rulicity) 3 mg/0.5 mL pen injector Active 3 MG SC EVERY WEEK February 01, 2023 11:00pm Start: 02-02-2023 Dulaglutide (T rulicity) 3 mg/0.5 mL pen injector Active 3 MG SC EVERY WEEK February 02, 2023 12:00am Start: 02-02-2023 Dulaglutide (D ulaglutide 3 Mg/0.5 Ml Subcutaneous Pen Injector) 3 mg/0.5 mL pen injector Active 3 MG SC EVERY WEEK February 02, 2023 12:00am fluconazole 100 mg oral tabl et (9 sources) Azole Antifungal Start: 04-29-2024 End: 06-29-2024 gabapentin 400 mg oral capsu le (20 sources) Anti-epileptic Agent Start: 06-29-2024 End: 09-02-2024 Start: 05-22-2023 End: 12-29-2023 Start: 02-27-2023 End: 02-28-2023 Start: 08-14-2022 End: 01-01-2023 Start: 08-14-2022 End: 01-01-2023 take 1 capsule by mouth three times daily Gabapentin (Neurontin) 300 mg capsule Discontinued 300 MG PO THREE TIMES A DAY August 14, 2022 12:00am January 01, 2023 4:11pm Start: 08-05-2021 take 100 mg by mouth twice daily at mealtime Gabapentin Active 100 MG PO TWICE DAILY WITH MEALS 60 August 05, 2021 12:00am Start: 06-25-2019 End: 07-24-2019 take 1 capsule by mouth three times daily for pain gabapentin 300 mg oral capsule ; 1 cap(s) orally 3 times a day for diabetic neuropathy pain Quantity: 90 Refills: 0 Ordered: 25-Jun-2019 Sara Willis Start: 25-Jun-2019 End: 24-Jul-2019 Generic Substitution Allowed gabapentin (Neur ontin) 300 MG capsule Take 300 mg by mouth in the morning and 300 mg at noon and 300 mg in the evening. 0 Active Comment on above: Take 300 mg by mouth three times daily. glimepiride 4 mg oral tablet (20 sources) Sulfonylurea Start: 08-09-2022 End: 03-26-2023 Start: 08-09-2022 End: 01-29-2023 take 1 tablet by mouth once daily Glimepiride Discontinued 1 TAB PO DAILY August 09, 2022 1:00am January 29, 2023 4:26pm haloperidol 1 mg oral tablet (9 sources) Typical Antipsychotic Start: 07-03-2024 End: 09-05-2024 Insulin Glargine-Yfgn (20 sources) Start: 01-03-2023 End: 02-02-2023 Start: 01-03-2023 End: 02-02-2023 Insulin Glargine-Yfgn Discon tinued 15 UNIT SC TWICE A DAY 0 January 02, 2023 11:00pm February 02, 2023 2:46pm Start: 01-03-2023 End: 02-02-2023 Insulin Glargine-Yfgn Discon tinued 15 UNIT SC TWICE A DAY 0 January 03, 2023 12:00am February 02, 2023 3:46pm Start: 01-03-2023 Insulin Glargi ne-Yfgn Active 15 UNIT SC TWICE A DAY 0 January 03, 2023 12:00am 100 ml levoFLOXacin 5 mg/ml injection (1 source) Quinolone Antimicrobial Start: 08-21-2019 End: 09-19-2019 take 500 mg intravenously once daily levoFLOXacin 500 mg/100 mL-D5% intravenous solution ; 500 milligram(s) intravenously once a day x 30 days Quantity: 30 Refills: 0 Ordered: 21-Aug-2019 WillisSara Gian Start: 21-Aug-2019 End: 19-Sep-2019 Status: Discontinued Generic Substitution Allowed lisinopril 20 mg oral tablet (20 sources) Angiotensin Converting Enzyme Inhibitor Start: 01-03-2023 End: 05-07-2023 Start: 09-02-2022 End: 01-03-2023 Start: 09-26-2019 End: 11-24-2019 take 1 tablet by mouth once daily lisinopril 5 mg oral tablet ; 1 tab(s) orally once a day Quantity: 30 Refills: 1 Ordered: 26-Sep-2019 Gadiel Maria Start: 26-Sep-2019 End: 24-Nov-2019 Generic Substitution Allowed Comments: Do not take this drug if you are .It is very important that you take or use this exactly as directed. Do not skip doses or discontinue unless directed by your doctor.Some non-prescription drugs may aggravate your condition. Read all labels carefully. If a warning appears, check with your doctor before taking. Start: 12-08-2017 take 1 tablet by gurvinder th in the morning lisinopril 10 MG tablet Take 10 mg by mouth in the morning. 0 12/08/2017 Active Comment on above: Do not take this tera g if you are .It is very important that you take or use this exactly as directed. Do not skip doses or discontinue unless directed by your doctor.Some non-prescription drugs may aggravate your condition. Read all labels carefully. If a warning appears, check with your doctor before taking. loperamide hydrochloride 2 m g oral capsule (9 sources) Opioid Agonist Start: 11-19-2023 End: 12-29-2023 losartan potassium 25 mg ora l tablet (20 sources) Angiotensin 2 Receptor Linda Start: 08-30-2022 End: 09-02-2022 Start: 04-12-2022 take 1 tablet by gurvinder th once daily losartan (Cozaar) 25 MG tablet take 1 by mouth every day 0 04/12/2022 Active metroNIDAZOLE 500 mg oral ta blet (9 sources) Nitroimidazole Antimicrobial Start: 04-29-2024 End: 06-29-2024 24 hr nicotine 0.583 mg/hr transdermal system (20 sources) Cholinergic Nicotinic Agonist Start: 02-19-2024 End: 04-25-2024 Start: 09-08-2023 nicotine (CARISSA DERM) 7 mg/24 hr Apply 1 Patch as directed once daily. 09/08/2023 Active Start: 09-02-2022 End: 12-29-2023 Start: 09-02-2022 Nicotine Activ e 21 MG TD DAILY September 02, 2022 12:00am Start: 09-02-2022 Start: 06-25-2019 End: 07-24-2019 apply 1 dose transdermal route every twenty-four hours nicotine 7 mg/24 hr transdermal film, extended release ; 1 patch transdermal every 24 hours Quantity: 30 Refills: 0 Ordered: 25-Jun-2019 Sara Willis Start: 25-Jun-2019 End: 24-Jul-2019 Generic Substitution Allowed nicotine (Nicode rm, Step 3) 7 MG/24HR patch Place 1 patch on the skin in the morning. 0 Active Comment on above: Apply 1 Patch as dir ected every 24 hours. Apply 1 Patch as dir ected once daily. nitrofurantoin, macrocrystal s 25 mg / nitrofurantoin, monohydrate 75 mg oral capsule (9 sources) Nitrofuran Antibacterial Start: 08-01-2024 End: 08-26-2024 nitroglycerin 0.02 mg/mg top ical ointment (20 sources) Nitrate Vasodilator Start: 08-09-2022 End: 09-02-2022 Start: 08-09-2022 End: 09-02-2022 Nitroglycerin (Nitro-Bid) 2 % ointment Discontinued 0.5 INCH TD TWICE A DAY August 09, 2022 1:00am September 02, 2022 9:59am administer 2 doses/day (approx. 6 hrs apart); remove for 10-12 hrs per 24 hours Start: 08-09-2022 End: 09-02-2022 Start: 09-25-2018 nitroglycerin sublingual (NITROQUICK) 0.4 mg SL tablet Dissolve 1 tablet under the tongue every 5 minutes as needed for Chest Pain for up to 3 doses. 1 Bottle of 25 09/25/2018 Active Comment on above: Dissolve 1 tablet un dianelys the tongue every 5 minutes as needed for Chest Pain for up to 3 doses. nystatin 100 unt/mg topical powder (15 sources) Polyene Antifungal Start: 11-19-2023 End: 12-29-2023 Start: 03-27-2022 Nyamyc [id number] UNIT/GM powder APPLY THREE TIMES DAILY 0 03/27/2022 Active omeprazole 40 mg delayed rel ease oral capsule (20 sources) Proton Pump Inhibitor Start: 02-03-2023 End: 04-18-2023 Start: 01-29-2023 End: 02-27-2023 Start: 07-25-2022 End: 01-29-2023 Start: 03-17-2019 take 1 capsule by mo [facility] in the morning omeprazole (PriLOSEC) [address] capsule Take 20 mg by mouth in the morning. 0 03/17/2019 Active promethazine hydrochloride 2 5 mg oral tablet (20 sources) Phenothiazine Start: 09-11-2022 End: 01-01-2023 Start: 03-07-2013 End: 06-20-2013 rivaroxaban 20 mg oral tablet (1 source) Factor Xa Inhibitor Start: 09-26-2019 End: 11-24-2019 take 1 tablet by mouth once daily at mealtime Xarelto 20 mg oral tablet ; 1 tab(s) orally once a day Quantity: 30 Refills: 1 Ordered: 26-Sep-2019 Gadiel Maria Start: 26-Sep-2019 End: 24-Nov-2019 Generic Substitution Allowed Comments: Check with your doctor before becoming .It is very important that you take or use this exactly as directed. Do not skip doses or discontinue unless directed by your doctor.Obtain medical advice before taking any non-prescription drugs as some may affect the action of this medication.Take with food. Comment on above: Check with your doct or before becoming .It is very important that you take or use this exactly as directed. Do not skip doses or discontinue unless directed by your doctor.Obtain medical advice before taking any non-prescription drugs as some may affect the action of this medication.Take with food. simethicone 80 mg chewable tablet (20 sources) Start: 11-19-2023 End: 12-29-2023 Start: 04-18-2023 End: 11-14-2023 sucralfate 1000 mg oral tablet (1 source) Aluminum Complex Start: 09-26-2019 End: 10-25-2019 take 1 tablet by mouth three times daily 1 hour(s) after mealtime Carafate 1 g oral tablet ; 1 tab(s) orally 3 times a day Quantity: 90 Refills: 0 Ordered: 26-Sep-2019 Gadiel Maria Start: 26-Sep-2019 End: 25-Oct-2019 Generic Substitution Allowed Comments: Do not take dairy products, antacids, or iron preparations within one hour of this medication.It is very important that you take or use this exactly as directed. Do not skip doses or discontinue unless directed by your doctor.Take medication on an empty stomach 1 hour before or 2 to 3 hours after a meal unless otherwise directed by your doctor. Comment on above: Do not take dairy pr oducts, antacids, or iron preparations within one hour of this medication.It is very important that you take or use this exactly as directed. Do not skip doses or discontinue unless directed by your doctor.Take medication on an empty stomach 1 hour before or 2 to 3 hours after a meal unless otherwise directed by your doctor. traMADol hydrochloride 50 mg oral tablet (20 sources) Opioid Agonist Start: 08-09-2022 End: 09-02-2022 traZODone hydrochloride 50 mg oral tablet (20 sources) Serotonin Reuptake Inhibitor Start: 08-09-2022 End: 01-03-2023 Problems Active Problems Problem Classification Problem Date Documented Da te Episodic/Chronic Anxiety disorders (20 sources) Anxiety disorder, unspecified; Translations: [Anxiety] Onset: 7 10-17-2018 Chronic Aortic and peripheral arterial embolism or thrombosis (20 sources) Atheromatous embolus of lower limb; Translations: [Atheroembolism of right lower extremity] 08-09-2022 Chronic Cardiac and circulatory congenital anomalies (10 sources) Pericardial cyst; Translations: [Other specified congenital malformations of heart] Onset: 7 02-20-2017 Chronic Chronic obstructive pulmonary disease and bronchiectasis (20 sources) Bronchitis; Translations: [Bronchitis, not specified as acute or chronic] 02-18-2021 Episodic Chronic ulcer of skin (20 sources) Non-pressure chronic ulcer of other part of right foot with necrosis of bone; Translations: [Non-pressure chronic ulcer of other part of right foot with necrosis of bone] Onset: 4 09-02-2022 Chronic Congestive heart failure; nonhypertensive (20 sources) Chronic systolic (congestive) heart failure; Translations: [Congestive heart failure] Onset: 8 12-13-2020 Chronic Coronary atherosclerosis and other heart disease (20 sources) Ischemic cardiomyopathy; Translations: [Atherosclerotic heart disease of rincon coronary artery without angina pectoris] Onset: 8 12-13-2020 Chronic Delirium dementia and amnestic and other cognitive disorders (11 sources) Age-related physical debility; Translations: [Frailty] Onset: 9 07-21-2018 Chronic Diabetes mellitus with complications (20 sources) Type 2 diabetes mellitus with unspecified complications; Translations: [Type 2 diabetes mellitus with hyperglycemia] Onset: 7 02-18-2021 Chronic Diabetes mellitus without complication (20 sources) Diabetes mellitus; Translations: [Type 2 diabetes mellitus without complications] 05-18-2022 Chronic Diseases of white blood cells (20 sources) Leukocytosis; Translations: [Elevated white blood cell count, unspecified] Onset: 8 12-30-2020 Chronic Disorders of lipid metabolism (20 sources) Hyperlipidemia, unspecified; Translations: [Hyperlipidemia] Onset: 8 12-13-2020 Chronic E Codes: Fall (20 sources) Fall; Translations: [Unspecified fall, initial encounter] Onset: 4 Resolved: 4 06-19-2023 Episodic Esophageal disorders (20 sources) Gastroesophageal reflux disease; Translations: [Gastro-esophageal reflux disease without esophagitis] 12-13-2020 Chronic Essential hypertension (20 sources) Essential (primary) hypertension; Translations: [Hypertensive disorder] Onset: 7 12-13-2020 Chronic Fracture of upper limb (20 sources) Fracture of head of humerus; Translations: [Other displaced fracture of upper end of unspecified humerus, initial encounter for closed fracture] Onset: Episodic Gangrene (20 sources) Gangrenous disorder; Translations: [Gangrene, not elsewhere classified] 08-30-2022 Episodic Gastritis and duodenitis (20 sources) Gastritis; Translations: [Gastritis, unspecified, without bleeding] 07-25-2022 Episodic Headache; including migraine (20 sources) Migraine; Translations: [Migraine, unspecified, not intractable, without status migrainosus] 04-17-2022 Chronic Influenza (20 sources) Influenza due to Influenza A virus; Translations: [Influenza due to other identified influenza virus with other respiratory manifestations] 05-18-2022 Episodic Miscellaneous mental health disorders (20 sources) Mental disorder; Translations: [Mental disorder, not otherwise specified] 02-27-2023 Chronic Mood disorders (10 sources) Depressive disorder; Translations: [Depression] Onset: 7 11-30-2017 Chronic Mood disorders (1 source) Major depressive disorder, single episode, unspecified; Translations: [Major depressive disorder, single episode, unspecified] Onset: 8 Nausea and vomiting (20 sources) Diarrhea and vomiting; Translations: [Vomiting, unspecified] Onset: 4 12-30-2020 Episodic Nonspecific chest pain (20 sources) Chest pain, unspecified; Translations: [Chest pain] Onset: 8 12-30-2020 Episodic Other aftercare (1 source) long-term (current) use of insulin; Translations: [long-term (current) use of insulin] Onset: 9 Episodic Other aftercare (20 sources) Surgical follow-up; Translations: [Encounter for surgical aftercare following surgery on the circulatory system] 09-12-2022 Episodic Other aftercare (13 sources) Long-term current use of anticoagulant; 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] 06-19-2023 Episodic Other aftercare (10 sources) Wound ; Translations: [Encounter for other specified surgical aftercare] 10-15-2023 Episodic Other and ill-defined heart disease (10 sources) Mural thrombus of left ventricle; Translations: [Intracardiac thrombosis, not elsewhere classified] Onset: 9 09-25-2018 Chronic Other bone disease and musculoskeletal deformities (20 sources) Absence of toe; Translations: [Acquired absence of other toe(s), unspecified side] 01-13-2021 Episodic Other circulatory disease (18 sources) History of cardiomyopathy; Translations: [Personal history of other diseases of the circulatory system] 05-03-2023 Episodic Other circulatory disease (18 sources) H/O: heart disorder; Translations: [Personal history of other diseases of the circulatory system] 05-03-2023 Episodic Other circulatory disease (14 sources) Personal history of other diseases of the circulatory system; Translations: [Personal history of other diseases of circulatory system] 05-03-2023 Episodic Other connective tissue disease (20 sources) Pain in lower limb; Translations: [Pain in limb] 08-13-2021 Episodic Other connective tissue disease (20 sources) Pain in left lower limb; Translations: [Pain in left leg] 08-16-2021 Episodic Other connective tissue disease (20 sources) Foot pain; Translations: [Pain in right foot] 08-14-2022 Episodic Other connective tissue disease (9 sources) Pain in right foot; Translations: [Pain in limb] 08-30-2022 Episodic Other connective tissue disease (15 sources) History of osteoporosis; Translations: [Personal history of other diseases of the musculoskeletal system and connective tissue] 06-03-2023 Episodic Other connective tissue disease (16 sources) Peripheral neuropathic pain; Translations: [Neuralgia and neuritis, unspecified] 08-27-2024 Episodic Other connective tissue disease (2 sources) Pain in left leg; Translations: [Pain in left leg] Onset: Episodic Other disorders of stomach and duodenum (3 sources) Cyclical vomiting syndrome; Translations: [Cyclical vomiting syndrome unrelated to migraine] 09-21-2024 Episodic Other fractures (18 sources) Fracture of rib; Translations: [Fracture of one rib, right side, initial encounter for closed fracture] 06-03-2023 Episodic Other fractures (12 sources) Fracture of right rib; Translations: [Fracture of one rib, right side, initial encounter for closed fracture] 06-03-2023 Episodic Other fractures (9 sources) Compression fracture of lumbar spine; Translations: [Wedge compression fracture of third lumbar vertebra, initial encounter for closed fracture] 02-27-2024 Episodic Other fractures (18 sources) Fracture of fifth lumbar vertebra; Translations: [Unspecified fracture of fifth lumbar vertebra, initial encounter for closed fracture] 01-09-2024 Episodic Other gastrointestinal disorders (20 sources) Constipation; Translations: [Constipation, unspecified] Onset: 9 Resolved: 9 08-13-2021 Episodic Other gastrointestinal disorders (20 sources) Burping; Translations: [Eructation] 03-07-2014 Episodic Other gastrointestinal disorders (9 sources) Diarrhea; Translations: [Diarrhea, unspecified] 02-27-2024 Episodic Other injuries and conditions due to external causes (20 sources) Injury of left shoulder; Translations: [Unspecified injury of left shoulder and upper arm, initial encounter] 01-13-2021 Episodic Other lower respiratory disease (20 sources) Dyspnea; Translations: [Dyspnea, unspecified] 01-01-2023 Episodic Other lower respiratory disease (20 sources) Hypoxemia; Translations: [Hypoxemia] 01-01-2023 Episodic Other lower respiratory disease (14 sources) Dyspnea, unspecified; Translations: [Other respiratory abnormalities] 01-01-2023 Episodic Other lower respiratory disease (20 sources) Hypoxia; Translations: [Hypoxemia] 02-02-2023 Episodic Other nervous system disorders (10 sources) Chronic pain; Translations: [Other chronic pain] 05-07-2024 Chronic Other nervous system disorders (1 source) Left leg peripheral neuropathy; Translations: [Unspecified mononeuropathy of left lower limb] 12-12-2024 Chronic Other nervous system disorders (1 source) Right leg peripheral neuropathy; Translations: [Unspecified mononeuropathy of right lower limb] 12-12-2024 Chronic Other nervous system disorders (20 sources) Postoperative pain ; Translations: [Other acute postprocedural pain] 09-05-2022 Episodic Other nervous system disorders (1 source) History of clinical finding in subject; Translations: [Personal history of other diseases of the nervous system and sense organs] 12-12-2024 Episodic Other non-traumatic joint disorders (20 sources) Shoulder pain; Translations: [Pain in left shoulder] 04-26-2022 Episodic Other non-traumatic joint disorders (2 sources) Pain in right shoulder; Translations: [Pain in right shoulder] Onset: Episodic Other non-traumatic joint disorders (20 sources) Hip pain; Translations: [Pain in right hip] 09-18-2022 Episodic Other non-traumatic joint disorders (20 sources) Pain in left shoulder; Translations: [Acute pain of left shoulder] 01-08-2021 Episodic Other nutritional; endocrine; and metabolic disorders (20 sources) H/O: diabetes mellitus; Translations: [Personal history of other endocrine, nutritional and metabolic disease] 08-16-2021 Episodic Other screening for suspected conditions (not mental disorders or infectious disease) (20 sources) Pseudohyponatremia; Translations: [Other specified abnormal findings of blood chemistry] Onset: 4 08-05-2021 Episodic Other upper respiratory infections (20 sources) Upper respiratory infection; Translations: [Acute upper respiratory infection, unspecified] 09-02-2014 Episodic Isabelle-; endo-; and myocarditis; cardiomyopathy (except that caused by tuberculosis or sexually transmitted disease) (11 sources) Cardiomyopathy, unspecified; Translations: [Cardiomyopathy] Onset: 8 09-04-2023 Chronic Isabelle-; endo-; and myocarditis; cardiomyopathy (except that caused by tuberculosis or sexually transmitted disease) (20 sources) Pericardial effusion; Translations: [Pericardial effusion] Onset: 7 01-01-2023 Episodic Peripheral and visceral atherosclerosis (20 sources) Pain at rest of right lower limb co-occurrent and due to atherosclerosis; Translations: [Atherosclerosis of rincon arteries of extremities with rest pain, right leg] Onset: 5 08-09-2022 Chronic Pleurisy; pneumothorax; pulmonary collapse (20 sources) Pleural effusion; Translations: [Pleural effusion, not elsewhere classified] 01-01-2023 Episodic Residual codes; unclassified (20 sources) Hypersomnia; Translations: [Hypersomnia, unspecified] 03-22-2023 Chronic Residual codes; unclassified (8 sources) Hypersomnia, unspecified; Translations: [Hypersomnia, unspecified] 03-22-2023 Chronic Residual codes; unclassified (20 sources) H/O: gastrointestinal disease; Translations: [Personal history of other specified conditions] 09-11-2022 Episodic Skin and subcutaneous tissue infections (20 sources) Cellulitis of lower limb; Translations: [Cellulitis and abscess of leg, except foot] 08-13-2021 Episodic Spondylosis; intervertebral disc disorders; other back problems (7 sources) Prolapsed lumbar intervertebral disc; Translations: [Other intervertebral disc displacement, lumbar region] 09-05-2024 Chronic Sprains and strains (20 sources) Sprain of foot; Translations: [Unspecified sprain of unspecified foot, initial encounter] 09-05-2022 Episodic Substance-related disorders (20 sources) Cannabis abuse, uncomplicated; Translations: [Nicotine dependence, unspecified, uncomplicated] Onset: 8 09-23-2018 Chronic Superficial injury; contusion (20 sources) Contusion of knee; Translations: [Contusion of left knee, initial encounter] 02-16-2015 Episodic Unclassified (2 sources) NAUSEA/ CONSTIPATION LT ANKLE PAIN 08-13-2021 Comment on above: NAUSEA/ CONSTIPATION LT ANKLE PAIN Unclassified (1 source) Cellulitis of left lower extremity 08-13-2021 Unclassified (1 source) Chronic pain of left lower extremity 08-13-2021 Unclassified (1 source) Fracture of third lumbar vertebra 02-22-2024 Urinary tract infections (20 sources) Urinary tract infectious disease; Translations: [Urinary tract infection, site not specified] Onset: 5 06-30-2024 Episodic Past or Other Problems Problem Classification Problem Date Documented Da te Episodic/Chronic Abdominal pain (20 sources) Abdominal pain; Translations: [Unspecified abdominal pain] Onset: 3 01-15-2021 Episodic Acute and unspecified renal failure (4 sources) Acute renal failure syndrome; Translations: [Acute kidney failure, unspecified] Onset: 4 10-18-2023 Episodic Cardiac dysrhythmias (11 sources) Tachycardia; Translations: [Tachycardia, unspecified] Onset: 4 05-07-2024 Episodic Diabetes mellitus without complication (20 sources) Hyperglycemia; Translations: [Other abnormal glucose] Onset: 9 08-13-2021 Episodic Diverticulosis and diverticulitis (10 sources) Diverticulitis of intestine, part unspecified, without perforation or abscess without bleeding; Translations: [Diverticulitis of intestine] Onset: 9 Resolved: 9 06-12-2018 Chronic Fluid and electrolyte disorders (20 sources) Dehydration; Translations: [Dehydration] Onset: 4 04-25-2022 Episodic Fracture of neck of femur (hip) (11 sources) Closed intertrochanteric fracture; Translations: [Displaced intertrochanteric fracture of right femur, initial encounter for closed fracture] Onset: 4 09-07-2023 Episodic Malaise and fatigue (20 sources) Asthenia; Translations: [Weakness] Onset: 4 05-07-2024 Episodic Mycoses (20 sources) Candidiasis of skin; Translations: [Candidiasis of skin and nail] Onset: 4 04-04-2022 Episodic Noninfectious gastroenteritis (20 sources) Colitis; Translations: [Noninfective gastroenteritis and colitis, unspecified] Onset: 5 01-18-2021 Episodic Other circulatory disease (10 sources) Low blood pressure; Translations: [Hypotension, unspecified] Onset: 8 12-03-2017 Episodic Other circulatory disease (1 source) Hypotension, unspecified; Translations: [Hypotension, unspecified hypotension type] Onset: 8 Episodic Other connective tissue disease (1 source) Neuralgia and neuritis, unspecified; Translations: [Neuralgia and neuritis, unspecified] Onset: 5 Episodic Other fractures (1 source) Wedge compression fracture of third lumbar vertebra, initial encounter for closed fracture; Translations: [Wedge compression fracture of third lumbar vertebra, initial encounter for closed fracture] Onset: 4 Episodic Other fractures (1 source) Unspecified fracture of fifth lumbar vertebra, initial encounter for closed fracture; Translations: [Unspecified fracture of fifth lumbar vertebra, initial encounter for closed fracture] Onset: 4 Episodic Other gastrointestinal disorders (1 source) Diarrhea, unspecified; Translations: [Diarrhea, unspecified] Onset: 4 Episodic Other hematologic conditions (10 sources) Erythrocytosis; Translations: [Secondary polycythemia] Onset: 8 12-03-2017 Episodic Other injuries and conditions due to external causes (9 sources) Traumatic injury; Translations: [Injury, unspecified, initial encounter] Onset: 4 Resolved: 4 09-07-2023 Episodic Other lower respiratory disease (20 sources) Hypoxemia; Translations: [Hypoxemia] Onset: 4 01-01-2023 Episodic Other skin disorders (1 source) Localized swelling, mass and lump, left lower limb; Translations: [Localized swelling, mass and lump, left lower limb] Onset: 5 Episodic Residual codes; unclassified (3 sources) Surgical wound finding; Translations: [Other specified health status] Onset: 4 10-19-2023 Episodic Septicemia (except in labor) (9 sources) Sepsis due to Gram negative bacteria ; Translations: [Gram-negative sepsis, unspecified] Onset: 5 07-03-2024 Episodic Spondylosis; intervertebral disc disorders; other back problems (18 sources) Lumbago co-occurrent with right-side sciatica; Translations: [Lumbago with sciatica, right side] Onset: 7 02-20-2017 Episodic Results Test Name Value Interpretation Reference Range Facility Anion gap in Serum or Plasma Ordered By: Darlyn Galeano on 12-12-2024 Anion gap [Moles/Vol] 11 mmol/L 10-16 [facility] Ankle min 3 Viewson 12-13-19 25 Ankle min 3 Views Normal [facility] BUN/creatinine ratioOrdered By: Darlyn Galeano on 12-12-2024 Urea nitrogen/Creatinine [Mass ratio] 8.9 mg/mg Low 03-23 [facility] Basic Metabolic Profile (BMP )on 12-12-2024 BUN/CRE 8.9 RATIO Low 03-23 [facility] Comment on above: Performed By: #### L 500.2500 ####[facility] [id number] [place], [place], [id number] GAP 11 Normal 10-16 [facility] Comment on above: Performed By: #### L 500.2500 ####[facility] [id number] [place], [address] Potassium [Moles/Vol] 3.9 mmol/L Normal 3.3-5.1 [facility] Comment on above: Performed By: #### L 500.2500 ####[facility] [id number] [place], [address] Bedside Glucoseon 12-12-2024 FINGERSTICK GLU 346 mg/dL High 74-106 [facility] Comment on above: Result Comment: TALIA CHABMERS OF PATIENT CARE PER NURSING PROTOCOL Performed By: #### L 501.080 ####[facility] [id number] [place], [place], [address] Carbon dioxide, total [Moles /volume] in Central venous bloodOrdered By: Darlyn Galeano on 12-12-2024 CO2 [Moles/Vol] 23.3 mmol/L Normal 21.0-32.0 [facility] Comment on above: Performed By: #### L 500.2500 ####[facility] [address] [place], [address] Chloride assayOrdered By: Dipika Galeano on 12-12-2024 Chloride [Moles/Vol] 98 mmol/L Normal 98-108 [facility] Comment on above: Performed By: #### L 500.2500 ####[facility] [address] [place], [place], [address] Emergency Department Summary on 12-12-2024 Emergency Department Summary Normal [facility] Foot min 3 Viewson 5 Foot min 3 Views Normal [facility] Glomerular filtration rate ( GFR) estimation/1.73 sq m using serum, plasma, or whole bOrdered By: Darlyn Galeano on 12-12-2024 GFR/1.73 sq M.predicted among non-blacks MDRD (S/P/Bld) [Vol rate/Area] 105 mL/min/{1.73_m2} Normal >60 [facility] Comment on above: Result Comment: mL/m in/1.73m2 CKD-EPI Creatinine Equation (2020) Performed By: #### L 500.2500 ####[facility] [address] [place], [place], [address] [facility] deOrdered By: Derek Paniagua on 12-12-2024 Glucose [Mass/Vol] 346 mg/dL High 74-106 [facility] Potassium measurement (mass/ volume)Ordered By: Darlyn Galeano on 12-12-2024 Potassium (Unsp spec) [Mass/Vol] 3.9 mmol/L 3.3-5.1 [facility] Serum creatinine measurement (mass/volume)Ordered By: Darlynneville Galeano on 12-12-2024 Creatinine [Mass/Vol] 0.66 mg/dL Low 0.70-1.20 [facility] Comment on above: Performed By: #### L 500.2500 ####[facility] [address] [place], [address] Serum glucose measurement (m ass/volume)Ordered By: Darlyn Galeano on 12-12-2024 Glucose [Mass/Vol] 327 mg/dL High 70-99 [facility] Comment on above: Performed By: #### L 500.2500 ####[facility] [address] [place], [address] Serum or plasma calcium xiomara urement (mass/volume)Ordered By: Darlyn Galeano on 12-12-2024 Calcium [Mass/Vol] 9.2 mg/dL Normal 7.6-11.0 [facility] Comment on above: Performed By: #### L 500.2500 ####[facility] [address] [place], [address] Serum or plasma urea nitroge n measurement (mass/volume)Ordered By: Darlyn Galeano on 12-12-2024 Urea nitrogen [Mass/Vol] 6 mg/dL Normal 4-19 [facility] Comment on above: Performed By: #### L 500.2500 ####[facility] [address] [place], [address] Sodium levelOrdered By: Darlyn Galeano on 12-12-2024 Sodium [Moles/Vol] 132 mmol/L Low 133-145 [facility] Comment on above: Performed By: #### L 500.2500 ####[facility] [address] [place], [address] 12 Lead EKGon 09-29-2024 12 Lead EKG Normal [facility] ALP [Catalytic activity/Vol] Ordered By: Nina Richardson on 09-29-2024 Serum or plasma alkaline phosphatase measurement 179 U/L High 35-104 [facility] ALT [Catalytic activity/Vol] Ordered By: Nina Richardson on 09-29-2024 Serum or plasma alanine aminotransferase (ALT) measurement 12 U/L <35 [facility] Absolute lymphocyte countOrd ered By: Nina Richardson on 09-29-2024 Lymphocytes Auto (Unsp spec) [#/Vol] 0.91 10*3/uL 0.83-4.51 [facility] Absolute neutrophil countOrd ered By: Nina Richardson on 09-29-2024 Absolute neutrophil count 14.1 X10^3/uL High 2.0-7.7 [facility] Albumin [Mass/Vol]Ordered By : Nina Richardson on 09-29-2024 Serum or plasma albumin measurement (mass/volume) 3.7 g/dL 3.5-5.0 [facility] Albumin/Globulin [Mass ratio ]Ordered By: Nina Richardson on 09-29-2024 Serum or plasma albumin/globulin mass ratio 1.0 RATIO 0.9-2.4 [facility] Anion gap [Moles/Vol]Ordered By: Nina Richardson on 09-29-2024 Anion gap in Serum or Plasma 15 5-15 [facility] Anion gap in Serum or Plasma Ordered By: Nina Richardson on 09-29-2024 Anion gap [Moles/Vol] 15 mmol/L 5-15 [facility] Automated lymphocyte count a s percentage of total leukocytesOrdered By: Nina Richardson on 09-29-2024 Lymphocytes/100 WBC Auto (Unsp spec) 5.8 % Low 19-41 [facility] BUN/creatinine ratioOrdered By: Nina Richardson on 09-29-2024 Urea nitrogen/Creatinine [Mass ratio] 20.5 mg/mg High 10-20 [facility] BUN/creatinine ratio 20.5 RATIO High 10-20 [facility] Basophil percentageOrdered B y: Nina Richardson on 09-29-2024 Basophils/100 WBC (Bld) 0.4 % 0-1 [facility] 0.4 % 0-1 [facility] Gl[facility] 09-29-2024 FINGERSTICK GLU 382 mg/dL High 74-106 [facility] Comment on above: Result Comment: TALIA GEMENT OF PATIENT CARE PER NURSING PROTOCOL Performed By: #### L 501.080 ####[facility] [address] [place], [address] FINGERSTICK GLU 412 mg/dL High 74-106 [facility] Comment on above: Result Comment: TALIA GEMENT OF PATIENT CARE PER NURSING PROTOCOL Performed By: #### L 501.080 ####[facility] [address] [place], [address] FINGERSTICK GLU 412 mg/dL High 74-106 [facility] Comment on above: Result Comment: TALIA GEMENT OF PATIENT CARE PER NURSING PROTOCOL Performed By: #### L 501.080 ####[facility] [address] [place], [address] Beta hydroxybutyrate [Mass/V ol]Ordered By: Nina Richardson on 09-29-2024 Beta-hydroxybutyrate 1.3 mmol/L 0.0-0.3 [facility] Beta-Hydroxbytyrateon 2024 BETA-HYDROXYBUT 1.3 mmol/L Normal 0.0-0.3 [facility] Comment on above: Performed By: #### L 501.6901 ####[facility] [address] [place], [address] Beta-hydroxybutyrateOrdered By: Nina Richardson on 09-29-2024 Beta hydroxybutyrate [Mass/Vol] 1.3 mmol/L 0.0-0.3 [facility] Bilirubin Test strip Ql (U)O rdered By: Nina Richardson on 09-29-2024 Bilirubin Ql (U) Negative Negative [facility] Bilirubin, totalOrdered By: Nina Richardson on 09-29-2024 Bilirubin [Mass/Vol] 0.90 mg/dL 0.00-1.30 [facility] Bilirubin, total 0.90 mg/dL 0.00-1.30 [facility] CBC W/Diff, Automatedon 04-2 Absolute Lymph 0.91 X10 3/uL Normal 0.83-4.51 [facility] Comment on above: Performed By: #### L 500.4050, L501.2450, L100.0100 ####[facility] [address] [place], [address] Absolute Neut 14.1 X10 3/uL High 2.0-7.7 [facility] Comment on above: Performed By: #### L 500.4050, L501.2450, L100.0100 ####[facility] [address] [place], [address] Basophils/100 WBC (Bld) 0.4 % Normal 0-1 [facility] Comment on above: Performed By: #### L 500.4050, L501.2450, L100.0100 ####[facility] [address] [place], [address] Eosinophils/100 WBC (Bld) 0.1 % Normal 0-5 [facility] Comment on above: Performed By: #### L 500.4050, L501.2450, L100.0100 ####[facility] [address] [place], [address] Erythrocyte distribution width (RBC) [Ratio] 13.2 % Normal 11.6-14.6 [facility] Comment on above: Performed By: #### L 500.4050, L501.2450, L100.0100 ####[facility] [address] [place], [address] Hematocrit (Bld) [Volume fraction] 38.0 % Normal 37-47 [facility] Comment on above: Performed By: #### L 500.4050, L501.2450, L100.0100 ####[facility] [address] [place], [address] Hemoglobin (Bld) [Mass/Vol] 12.9 g/dL Normal 12.0-15.0 [facility] Comment on above: Performed By: #### L 500.4050, L501.2450, L100.0100 ####[facility] [address] [place], [address] IG% 0.600 Normal 0.0-0.9 [facility] Comment on above: Result Comment: IG% - Immature Granulocytes (promyelocytes, myelocytes andmetamyelocytes) > 1% indicates that a LEFT SHIFT is Present. Performed By: #### L 500.4050, L501.2450, L100.0100 ####[facility] [address] [place], [address] Lymphocytes/100 WBC (Bld) 5.8 % Low 19-41 [facility] Comment on above: Performed By: #### L 500.4050, L501.2450, L100.0100 ####[facility] [address] [place], [address] MCH (RBC) [Entitic mass] 27.9 pg Normal 27.0-32.0 [facility] Comment on above: Performed By: #### L 500.4050, L501.2450, L100.0100 ####[facility] [address] [place], [address] MCHC (RBC) [Mass/Vol] 33.9 g/dL Normal 32-36 [facility] Comment on above: Performed By: #### L 500.4050, L501.2450, L100.0100 ####[facility] [address] [place], [address] MCV (RBC) [Entitic vol] 82.3 fL Normal 81-99 [facility] Comment on above: Performed By: #### L 500.4050, L501.2450, L100.0100 ####[facility] [address] [place], [address] Monocytes/100 WBC (Bld) 3.3 % Normal 0-10 [facility] Comment on above: Performed By: #### L 500.4050, L501.2450, L100.0100 ####[facility] [address] [place], [address] Neutrophils/100 WBC (Bld) 89.8 % High 47-70 [facility] Comment on above: Performed By: #### L 500.4050, L501.2450, L100.0100 ####[facility] [address] [place], [address] Nucleated RBC (Bld) [#/Vol] 0 10*3/uL Normal 0-5 [facility] Comment on above: Performed By: #### L 500.4050, L501.2450, L100.0100 ####[facility] [address] [place], [address] Platelet mean volume (Bld) [Entitic vol] 9.6 fL Normal 6.2-12.0 [facility] Comment on above: Performed By: #### L 500.4050, L501.2450, L100.0100 ####[facility] [address] [place], [address] Platelets (Bld) [#/Vol] 313 10*3/uL Normal 150-450 [facility] Comment on above: Performed By: #### L 500.4050, L501.2450, L100.0100 ####[facility] [address] [place], [address] RBC (Bld) [#/Vol] 4.62 10*6/uL Normal 4.2-5.4 [facility] Comment on above: Performed By: #### L 500.4050, L501.2450, L100.0100 ####[facility] [address] [place], [address] RDW SD 39.4 fl Normal 35.1-43.9 [facility] Comment on above: Performed By: #### L 500.4050, L501.2450, L100.0100 ####[facility] [address] [place], [address] WBC (Bld) [#/Vol] 15.7 10*3/uL High 4.4-11.0 [facility] Comment on above: Performed By: #### L 500.4050, L501.2450, L100.0100 ####[facility] [address] [place], [address] Calcium [Mass/Vol]Ordered By : Nina Richardson on 09-29-2024 Serum or plasma calcium measurement (mass/volume) 9.5 mg/dL 7.6-11.0 [facility] Carbon dioxide, total [Moles /volume] in Central venous bloodOrdered By: Nina Richardson on 09-29-2024 CO2 [Moles/Vol] 23.7 mmol/L 21.0-32.0 [facility] Carbon dioxide, total [Moles/volume] in Central venous blood 23.7 mmol/L 21.0-32.0 [facility] Chloride assayOrdered By: Es Richardson on 09-29-2024 Chloride [Moles/Vol] 97 mmol/L Low 98-108 [facility] Chloride assay 97 mmol/L Low 98-108 [facility] Clarity (U)Ordered By: Tara Richardson on 09-29-2024 Urine clarity Clear Clear [facility] Color (U)Ordered By: Billy Livingston on 09-29-2024 Urine color determination Yellow Yellow [facility] Comprehensive Metabolic Prof ilon 09-29-2024 Albumin [Mass/Vol] 3.7 g/dL Normal 3.5-5.0 [facility] Comment on above: Performed By: #### L 500.4050, L501.2450, L100.0100 ####[facility] [address] [place], [address] Albumin/Globulin [Mass ratio] 1.0 {ratio} Normal 0.9-2.4 [facility] Comment on above: Performed By: #### L 500.4050, L501.2450, L100.0100 ####[facility] [address] [place], [address] ALK PHOS 179 U/L High 35-104 [facility] Comment on above: Performed By: #### L 500.4050, L501.2450, L100.0100 ####[facility] [address] [place], [address] ALT [Catalytic activity/Vol] 12 U/L Normal <=34 [facility] Comment on above: Performed By: #### L 500.4050, L501.2450, L100.0100 ####[facility] [address] [place], [address] AST [Catalytic activity/Vol] 19 U/L Normal <=31 [facility] Comment on above: Performed By: #### L 500.4050, L501.2450, L100.0100 ####[facility] [address] [place], [address] Bilirubin [Mass/Vol] 0.90 mg/dL Normal 0.00-1.30 [facility] Comment on above: Performed By: #### L 500.4050, L501.2450, L100.0100 ####[facility] [address] [place], [address] BUN/CRE 20.5 RATIO High 10-20 [facility] Comment on above: Performed By: #### L 500.4050, L501.2450, L100.0100 ####[facility] [address] [place], [address] Calcium [Mass/Vol] 9.5 mg/dL Normal 7.6-11.0 [facility] Comment on above: Performed By: #### L 500.4050, L501.2450, L100.0100 ####[facility] [address] [place], [address] Chloride [Moles/Vol] 97 mmol/L Low 98-108 [facility] Comment on above: Performed By: #### L 500.4050, L501.2450, L100.0100 ####[facility] [address] [place], [address] CO2 [Moles/Vol] 23.7 mmol/L Normal 21.0-32.0 [facility] Comment on above: Performed By: #### L 500.4050, L501.2450, L100.0100 ####[facility] [address] [place], [address] Creatinine [Mass/Vol] 0.68 mg/dL Low 0.70-1.20 [facility] Comment on above: Performed By: #### L 500.4050, L501.2450, L100.0100 ####[facility] [address] [place], [address] ECRCL 105.00 ml/min Normal 50-250 [facility] Comment on above: Performed By: #### L 500.4050, L501.2450, L100.0100 ####[facility] [address] [place], [address] GAP 15 Normal 5-15 [facility] Comment on above: Performed By: #### L 500.4050, L501.2450, L100.0100 ####[facility] [address] [place], [address] GFR/1.73 sq M.predicted among non-blacks MDRD (S/P/Bld) [Vol rate/Area] 104 mL/min/{1.73_m2} Normal >60 [facility] Comment on above: Result Comment: mL/m in/1.73m2 CKD-EPI Creatinine Equation (2020) Performed By: #### L 500.4050, L501.2450, L100.0100 ####[facility] [address] [place], [address] Globulin (S) [Mass/Vol] 3.8 g/dL Normal 2.2-4.2 [facility] Comment on above: Performed By: #### L 500.4050, L501.2450, L100.0100 ####[facility] [address] [place], [address] Glucose [Mass/Vol] 442 mg/dL High 70-99 [facility] Comment on above: Performed By: #### L 500.4050, L501.2450, L100.0100 ####[facility] [address] [place], [address] Potassium [Moles/Vol] 3.5 mmol/L Normal 3.3-5.1 [facility] Comment on above: Performed By: #### L 500.4050, L501.2450, L100.0100 ####[facility] [address] [place], [address] Sodium [Moles/Vol] 135 mmol/L Normal 133-145 [facility] Comment on above: Performed By: #### L 500.4050, L501.2450, L100.0100 ####[facility] [address] [place], [address] T PROT 7.5 g/dL Normal 5.9-8.4 [facility] Comment on above: Performed By: #### L 500.4050, L501.2450, L100.0100 ####[facility] [address] [place], [address] Urea nitrogen [Mass/Vol] 14 mg/dL Normal 4-19 [facility] Comment on above: Performed By: #### L 500.4050, L501.2450, L100.0100 ####[facility] [address] [place], [address] Creatinine [Mass/Vol]Ordered By: Nina Richardson on 09-29-2024 Serum creatinine measurement (mass/volume) 0.68 mg/dL Low 0.70-1.20 [facility] Emergency Department Summary on 09-29-2024 Emergency Department Summary Normal [facility] Eosinophil percentageOrdered By: Nina Richardson on 09-29-2024 Eosinophils/100 WBC (Bld) 0.1 % 0-5 [facility] Eosinophil percentage 0.1 % 0-5 [facility] Erythrocyte distribution wid th (RBC) [Ratio]Ordered By: Nina Richardson on 09-29-2024 Erythrocyte distribution width ratio 13.2 % 11.6-14.6 [facility] Erythrocyte distribution width standard deviation 39.4 fl 35.1-43.9 [facility] Erythrocyte distribution wid th ratioOrdered By: Nina Richardson on 09-29-2024 Erythrocyte distribution width (RBC) [Ratio] 13.2 % 11.6-14.6 [facility] Erythrocyte distribution wid th standard deviationOrdered By: Nina Richardson on 09-29-2024 Erythrocyte distribution width (RBC) [Ratio] 39.4 fl 35.1-43.9 [facility] Estimation of creatinine sylvain aranceOrdered By: Nina Richardson on 09-29-2024 Estimation of creatinine clearance 105.00 ml/min 50-250 [facility] GFR/1.73 sq M.predicted estephanie g non-blacks MDRD (S/P/Bld) [Vol rate/Area]Ordered By: Nina Richardson on 09-29-2024 Glomerular filtration rate (GFR) estimation/1.73 sq m using serum, plasma, or whole b 104 >60 [facility] Glomerular filtration rate ( GFR) estimation/1.73 sq m using serum, plasma, or whole bOrdered By: Nina Richardson on 09-29-2024 GFR/1.73 sq M.predicted among non-blacks MDRD (S/P/Bld) [Vol rate/Area] 104 mL/min/{1.73_m2} >60 [facility] Glucose Ql (U)Ordered By: Es Richardson on 09-29-2024 Urine glucose detection 1000 mg/dl High Normal [facility] Glucose [Mass/Vol]Ordered By : Nina Richardson on 09-29-2024 Serum glucose measurement (mass/volume) 442 mg/dL High 70-99 [facility] Glucose measurement at bedsi deOrdered By: Zack Card on 09-29-2024 Glucose [Mass/Vol] 382 mg/dL High 74-106 [facility] Glucose measurement at bedside 382 mg/dL High 74-106 [facility] Hematocrit Auto (Bld) [Volum e fraction]Ordered By: Nina Richardson on 09-29-2024 Hematocrit (Bld) [Volume fraction] 38.0 % 37-47 [facility] Automated blood hematocrit (percentage) 38.0 % 37-47 [facility] Hemoglobin measurementOrdere d By: Nina Richardson on 09-29-2024 Hemoglobin (Bld) [Mass/Vol] 12.9 g/dL 12.0-15.0 [facility] Hemoglobin measurement 12.9 g/dL 12.0-15.0 [facility] Immature granulocytes/100 WB C Auto (Bld)Ordered By: Nina Richardson on 09-29-2024 Immature granulocytes/100 WBC (Bld) 0.600 % 0.0-0.9 [facility] Automated immature granulocyte percentage 0.600 % 0.0-0.9 [facility] Ketones Test strip Ql (U)Ord ered By: Nina Richardson on 09-29-2024 Ketones Ql (U) 15 mg/dl High Negative [facility] Urine ketones detection by test strip 15 mg/dl High Negative [facility] Lipaseon 09-29-2024 Lipase [Catalytic activity/Vol] 30 U/L Normal 13-75 [facility] Comment on above: Result Comment: Gege edgar note:LIPASE revised reference range effective 22.New Lipase methodology. Expected to produce lower valuesthan the previous assay method.NEW Reference Range: 13 - 75 U/L Performed By: #### L 500.4050, L501.2450, L100.0100 ####[facility] [address] [place], [address] Lipase measurementOrdered By : Nina Richardson on 09-29-2024 Lipase measurement 30 U/L 13-75 [facility] Lymphocytes Auto (Unsp spec) [#/Vol]Ordered By: Nina Richardson on 09-29-2024 Absolute lymphocyte count 0.91 X10^3/uL 0.83-4.51 [facility] Lymphocytes/100 WBC Auto (Un sp spec)Ordered By: Nina Richardson on 09-29-2024 Automated lymphocyte count as percentage of total leukocytes 5.8 % Low 19-41 [facility] MCV (RBC) [Entitic vol]Order ed By: Nina Richardson on 09-29-2024 MCV (mean corpuscular volume) determination 82.3 fL 81-99 [facility] MCV (mean corpuscular volume ) determinationOrdered By: Nina Richardson on 09-29-2024 MCV (RBC) [Entitic vol] 82.3 fL 81-99 [facility] Mean corpuscular hemoglobin (MCH) determinationOrdered By: Nina Richardson on 09-29-2024 MCH (RBC) [Entitic mass] 27.9 pg 27.0-32.0 [facility] Mean corpuscular hemoglobin (MCH) determination 27.9 pg 27.0-32.0 [facility] Mean corpuscular hemoglobin concentration (MCHC) determinationOrdered By: Nina Richardson on 09-29-2024 Mean corpuscular hemoglobin concentration (MCHC) determination 33.9 g/dL 32-36 [facility] Mean platelet volume determi nationOrdered By: Nina Richardson on 09-29-2024 Mean platelet volume determination 9.6 fl 6.2-12.0 [facility] Monocyte percentageOrdered B y: Nina Richardson on 09-29-2024 Monocytes/100 WBC (Bld) 3.3 % 0-10 [facility] Monocyte percentage 3.3 % 0-10 [facility] Mucus LM Ql (Urine sed)Order ed By: Nina iRchardson on 09-29-2024 Mucus Ql (Urine sed) 0 SEEN /hpf [facility] Neutrophil percentageOrdered By: Nina Richardson on 09-29-2024 Neutrophils/100 WBC (Bld) 89.8 % High 47-70 [facility] Neutrophil percentage 89.8 % High 47-70 [facility] Nitrite Test strip Ql (U)Ord ered By: Nina Richardson on 09-29-2024 Nitrite Ql (U) Negative Negative [facility] No Panel InformationOrdered By: Nina Richardson on 09-29-2024 19 U/L <32 [facility] Nucleated red blood cell per centageOrdered By: Nina Richardson on 09-29-2024 Nucleated red blood cell percentage 0 % 0-5 [facility] Platelet countOrdered By: Es Richardson on 09-29-2024 Platelets (Bld) [#/Vol] 313 10*3/uL 150-450 [facility] Platelet count 313 K/mm3 150-450 [facility] Potassium (Unsp spec) [Mass/ Vol]Ordered By: Nina Richardson on 09-29-2024 Potassium measurement (mass/volume) 3.5 mmol/L 3.3-5.1 [facility] Potassium measurement (mass/ volume)Ordered By: Nina Richardson on 09-29-2024 Potassium (Unsp spec) [Mass/Vol] 3.5 mmol/L 3.3-5.1 [facility] Protein Test strip Ql (U)Ord ered By: Nina Richardson on 09-29-2024 Protein Ql (U) 100 mg/dl High Negative [facility] Urine protein assay by test strip, semi-quantitative 100 mg/dl High Negative [facility] RBC Auto (Bld) [#/Vol]Ordere d By: Nina Richardson on 09-29-2024 RBC (Bld) [#/Vol] 4.62 10*6/uL 4.2-5.4 [facility] Automated blood erythrocyte count 4.62 M/mm3 4.2-5.4 [facility] Serum creatinine measurement (mass/volume)Ordered By: Nina Richardson on 09-29-2024 Creatinine [Mass/Vol] 0.68 mg/dL Low 0.70-1.20 [facility] Serum globulin measurementOr dered By: Nina Richardson on 09-29-2024 Globulin (S) [Mass/Vol] 3.8 g/dL 2.2-4.2 [facility] Serum globulin measurement 3.8 g/dL 2.2-4.2 [facility] Serum glucose measurement (m ass/volume)Ordered By: Nina Richardson on 09-29-2024 Glucose [Mass/Vol] 442 mg/dL High 70-99 [facility] Serum or plasma alanine hamilton otransferase (ALT) measurementOrdered By: Nina Richardson on 09-29-2024 ALT [Catalytic activity/Vol] 12 U/L <35 [facility] Serum or plasma albumin xiomara urement (mass/volume)Ordered By: Nina Richardson on 09-29-2024 Albumin [Mass/Vol] 3.7 g/dL 3.5-5.0 [facility] Serum or plasma albumin/glob ulin mass ratioOrdered By: Nina Richardson on 09-29-2024 Albumin/Globulin [Mass ratio] 1.0 {ratio} 0.9-2.4 [facility] Serum or plasma alkaline sabiha sphatase measurementOrdered By: Nina Richardson on 09-29-2024 ALP [Catalytic activity/Vol] 179 U/L High 35-104 [facility] Serum or plasma calcium xiomara urement (mass/volume)Ordered By: Nina Richardson on 09-29-2024 Calcium [Mass/Vol] 9.5 mg/dL 7.6-11.0 [facility] Serum or plasma urea nitroge n measurement (mass/volume)Ordered By: Nina Richardson on 09-29-2024 Urea nitrogen [Mass/Vol] 14 mg/dL 4-19 [facility] Sodium levelOrdered By: Carissa Richardson on 09-29-2024 Sodium [Moles/Vol] 135 mmol/L 133-145 [facility] Sodium level 135 mmol/L 133-145 [facility] Specific gravity (U) [Rel de nsity]Ordered By: Nina Richardson on 09-29-2024 Urine specific gravity measurement 1.010 1.002-1.03 0 [facility] Squamous epithelial cells de tection in urine sediment by light microscopyOrdered By: Nina Richardson on 09-29-2024 Epithelial cells.squamous LM Ql (Urine sed) 0-5 SEEN /hpf - [facility] Total proteinOrdered By: Yamil Richardson on 09-29-2024 Protein [Mass/Vol] 7.5 g/dL 5.9-8.4 [facility] Total protein 7.5 g/dL 5.9-8.4 [facility] Urea nitrogen [Mass/Vol]Orde red By: Nina Richardson on 09-29-2024 Serum or plasma urea nitrogen measurement (mass/volume) 14 mg/dL 09-20 [facility] Urinalysis, Completeon 09-29 EPI,SQUAMOUS 0-5 SEEN Normal -10 [facility] Comment on above: Order Comment: CLEAN CATCH Performed By: #### L 400.0001 ####[facility] [address] [place], [place], [id number]) RBC 0-5 SEEN Normal 0-5 [facility] Comment on above: Order Comment: CLEAN CATCH Performed By: #### L 400.0001 ####[facility] [address] [facility] [address] WBC 0-5 SEEN Normal 0-5 [facility] Comment on above: Order Comment: CLEAN CATCH Performed By: #### L 400.0001 ####[facility] [address] [place], [address] BACTERIA 0 SEEN Normal None Seen [facility] Comment on above: Order Comment: CLEAN CATCH Performed By: #### L 400.0001 ####[facility] [address] [place], [address] Mucus Ql (Urine sed) 0 SEEN Normal [facility] Comment on above: Order Comment: CLEAN CATCH Performed By: #### L 400.0001 ####[facility] [address] [place], [address] Urine blood detectionOrdered By: Nina Richardson on 09-29-2024 Urine blood detection 25 /ul High Negative [facility] Urine clarityOrdered By: Yamil Richardson on 09-29-2024 Clarity (U) Clear Clear [facility] Urine color determinationOrd ered By: Nina Richardson on 09-29-2024 Color (U) Yellow Yellow [facility] Urine glucose detectionOrder ed By: Nina Richardson on 09-29-2024 Glucose Ql (U) 1000 mg/dl High Normal [facility] Urine leukocyte esterase det ection by dipstickOrdered By: Nina Richardson on 09-29-2024 Leukocyte esterase Test strip Ql (U) Negative Negative [facility] Urine pHOrdered By: Martin Richardson on 09-29-2024 pH (U) 7.0 [pH] 5.0 - 8.0 [facility] Urine sediment bacteria coun t by microscopy (number/high power field)Ordered By: Nina Richardson on 09-29-2024 Bacteria LM.HPF (Urine sed) [#/Area] 0 /[HPF] None Seen [facility] Urine sediment bacteria count by microscopy (number/high power field) 0 SEEN /hpf [facility] Urine specific gravity measu rementOrdered By: Nina Richardson on 09-29-2024 Specific gravity (U) [Rel density] 1.010 1.002-1.03 0 [facility] Urine total bilirubin detect ion by test stripOrdered By: Nina Richardson on 09-29-2024 Urine total bilirubin detection by test strip Negative Negative [facility] Urine urobilinogen measureme ntOrdered By: Nina Richardson on 09-29-2024 Urobilinogen Ql (U) Normal mg/dl Normal [facility] Urobilinogen Ql (U)Ordered B y: Nina Richardson on 09-29-2024 Urine urobilinogen measurement Normal mg/dl Normal [facility] White blood cell (WBC) count Ordered By: Nina Richardson on 09-29-2024 WBC (Bld) [#/Vol] 15.7 10*3/uL High 4.4-11.0 [facility] White blood cell (WBC) count 15.7 K/mm3 High 4.4-11.0 [facility] White blood cell countOrdere d By: Nina Richardson on 09-29-2024 White blood cell count 0-5 SEEN /hpf 0-5 [facility] White blood cell count 0-5 SEEN /hpf 5-10 [facility] pH (U)Ordered By: Nina Richardson on 09-29-2024 Urine pH 7.0 5.0 - 8.0 [facility] ALP [Catalytic activity/Vol] Ordered By: Riccardo Hillman on 09-21-2024 Serum or plasma alkaline phosphatase measurement 128 U/L High 35-104 [facility] ALT [Catalytic activity/Vol] Ordered By: Riccardo Hillman on 09-21-2024 Serum or plasma alanine aminotransferase (ALT) measurement 13 U/L <35 [facility] Absolute lymphocyte countOrd ered By: Nina Richardson on 09-21-2024 Lymphocytes Auto (Unsp spec) [#/Vol] 1.03 10*3/uL 0.83-4.51 [facility] Absolute neutrophil countOrd ered By: Nina Richardson on 09-21-2024 Absolute neutrophil count 8.9 X10^3/uL High 2.0-7.7 [facility] Albumin [Mass/Vol]Ordered By : Riccardo Hillman on 09-21-2024 Serum or plasma albumin measurement (mass/volume) 3.6 g/dL 3.5-5.0 [facility] Albumin/Globulin [Mass ratio ]Ordered By: Riccardo Hillman on 09-21-2024 Serum or plasma albumin/globulin mass ratio 1.1 RATIO 0.9-2.4 [facility] Anion gap [Moles/Vol]Ordered By: Riccardo Hillman on 09-21-2024 Anion gap in Serum or Plasma 11 5-15 [facility] Anion gap in Serum or Plasma Ordered By: Riccardo Hillman on 09-21-2024 Anion gap [Moles/Vol] 11 mmol/L 5-15 [facility] Automated lymphocyte count a s percentage of total leukocytesOrdered By: Nina Richardson on 09-21-2024 Lymphocytes/100 WBC Auto (Unsp spec) 9.8 % Low [facility] BUN/creatinine ratioOrdered By: Riccardo Hillman on 09-21-2024 Urea nitrogen/Creatinine [Mass ratio] 13.7 mg/mg 03-23 [facility] BUN/creatinine ratio 13.7 RATIO 03-23 [facility] Basophil percentageOrdered B y: Nina Richardson on 09-21-2024 Basophils/100 WBC (Bld) 0.4 % 0-1 [facility] Basophil percentage 0.4 % 0-1 [facility] Bilirubin Test strip Ql (U)O rdered By: Nina Richardson on 09-21-2024 Bilirubin Ql (U) Negative Negative [facility] Bilirubin, totalOrdered By: Riccardo Hillman on 09-21-2024 Bilirubin [Mass/Vol] 1.08 mg/dL 0.00-1.30 [facility] Bilirubin, total 1.08 mg/dL 0.00-1.30 [facility] CBC W/Diff, Automatedon 09-03 Absolute Lymph 1.03 X10 3/uL Normal 0.83-4.51 [facility] Comment on above: Performed By: #### L 100.0100, L500.4050 ####[facility] [address] [place], [address] Absolute Neut 8.9 X10 3/uL High 2.0-7.7 [facility] Comment on above: Performed By: #### L 100.0100, L500.4050 ####[facility] [address] [place], [address] Basophils/100 WBC (Bld) 0.4 % Normal 0-1 [facility] Comment on above: Performed By: #### L 100.0100, L500.4050 ####[facility] [address] [place], [address] Eosinophils/100 WBC (Bld) 0.6 % Normal 0-5 [facility] Comment on above: Performed By: #### L 100.0100, L500.4050 ####[facility] [address] [place], [address] Erythrocyte distribution width (RBC) [Ratio] 13.0 % Normal 11.6-14.6 [facility] Comment on above: Performed By: #### L 100.0100, L500.4050 ####[facility] [address] [place], [address] Hematocrit (Bld) [Volume fraction] 37.7 % Normal 37-47 [facility] Comment on above: Performed By: #### L 100.0100, L500.4050 ####[facility] [address] [place], [address] Hemoglobin (Bld) [Mass/Vol] 13.0 g/dL Normal 12.0-15.0 [facility] Comment on above: Performed By: #### L 100.0100, L500.4050 ####[facility] [address] [place], [address] IG% 0.300 Normal 0.0-0.9 [facility] Comment on above: Result Comment: IG% - Immature Granulocytes (promyelocytes, myelocytes andmetamyelocytes) > 1% indicates that a LEFT SHIFT is Present. Performed By: #### L 100.0100, L500.4050 ####[facility] [address] [place], [address] Lymphocytes/100 WBC (Bld) 9.8 % Low 19-41 [facility] Comment on above: Performed By: #### L 100.0100, L500.4050 ####[facility] [address] [place], [address] MCH (RBC) [Entitic mass] 29.0 pg Normal 27.0-32.0 [facility] Comment on above: Performed By: #### L 100.0100, L500.4050 ####[facility] [address] [place], [address] MCHC (RBC) [Mass/Vol] 34.5 g/dL Normal 32-36 [facility] Comment on above: Performed By: #### L 100.0100, L500.4050 ####[facility] [address] [place], [address] MCV (RBC) [Entitic vol] 84.0 fL Normal 81-99 [facility] Comment on above: Performed By: #### L 100.0100, L500.4050 ####[facility] [address] [place], [address] Monocytes/100 WBC (Bld) 4.3 % Normal 0-10 [facility] Comment on above: Performed By: #### L 100.0100, L500.4050 ####[facility] [address] [place], [address] Neutrophils/100 WBC (Bld) 84.6 % High 47-70 [facility] Comment on above: Performed By: #### L 100.0100, L500.4050 ####[facility] [address] [place], [address] Nucleated RBC (Bld) [#/Vol] 0 10*3/uL Normal 0-5 [facility] Comment on above: Performed By: #### L 100.0100, L500.4050 ####[facility] [address] [place], [address] Platelet mean volume (Bld) [Entitic vol] 9.3 fL Normal 6.2-12.0 [facility] Comment on above: Performed By: #### L 100.0100, L500.4050 ####[facility] [address] [place], [address] Platelets (Bld) [#/Vol] 275 10*3/uL Normal 150-450 [facility] Comment on above: Performed By: #### L 100.0100, L500.4050 ####[facility] [address] [place], [address] RBC (Bld) [#/Vol] 4.49 10*6/uL Normal 4.2-5.4 [facility] Comment on above: Performed By: #### L 100.0100, L500.4050 ####[facility] [address] [place], [address] RDW SD 39.7 fl Normal 35.1-43.9 [facility] Comment on above: Performed By: #### L 100.0100, L500.4050 ####[facility] [address] [place], [address] WBC (Bld) [#/Vol] 10.5 10*3/uL Normal 4.4-11.0 [facility] Comment on above: Performed By: #### L 100.0100, L500.4050 ####[facility] [address] [place], [address] Calcium [Mass/Vol]Ordered By : Riccardo Hillman on 09-21-2024 Serum or plasma calcium measurement (mass/volume) 9.3 mg/dL 7.6-11.0 [facility] Carbon dioxide, total [Moles /volume] in Central venous bloodOrdered By: Riccardo Hillman on 09-21-2024 CO2 [Moles/Vol] 25.8 mmol/L 21.0-32.0 [facility] Carbon dioxide, total [Moles/volume] in Central venous blood 25.8 mmol/L 21.0-32.0 [facility] Chloride assayOrdered By: Bertram Hillman on 09-21-2024 Chloride [Moles/Vol] 95 mmol/L Low 98-108 [facility] Chloride assay 95 mmol/L Low 98-108 [facility] Clarity (U)Ordered By: Tara Richardson on 09-21-2024 Urine clarity Clear Clear [facility] Color (U)Ordered By: Billy Livingston on 09-21-2024 Urine color determination Yellow Yellow [facility] Comprehensive Metabolic Prof ilon 09-21-2024 Albumin [Mass/Vol] 3.6 g/dL Normal 3.5-5.0 [facility] Comment on above: Order Comment: REDRA W. PREVIOUS SPECIMEN REJECTED DUE TOSPECIMEN BEING HEMOLYZED. 09/21/241314 Jevon Squires Performed By: #### L 500.4050, L501.2450 ####[facility] [address] [place], [address] Albumin/Globulin [Mass ratio] 1.1 {ratio} Normal 0.9-2.4 [facility] Comment on above: Order Comment: REDRA W. PREVIOUS SPECIMEN REJECTED DUE TOSPECIMEN BEING HEMOLYZED. 09/21/241314 Jevon Angeles. Performed By: #### L 500.4050, L501.2450 ####[facility] [address] [place], [address] ALK PHOS 128 U/L High 35-104 [facility] Comment on above: Order Comment: REDRA W. PREVIOUS SPECIMEN REJECTED DUE TOSPECIMEN BEING HEMOLYZED. 09/21/241314 Jevon Squires Performed By: #### L 500.4050, L501.2450 ####[facility] [address] [place], [address] ALT [Catalytic activity/Vol] 13 U/L Normal <=34 [facility] Comment on above: Order Comment: REDRA W. PREVIOUS SPECIMEN REJECTED DUE TOSPECIMEN BEING HEMOLYZED. 09/21/241314 Jevon Angeles. Performed By: #### L 500.4050, L501.2450 ####[facility] [address] [place], [address] AST [Catalytic activity/Vol] 19 U/L Normal <=31 [facility] Comment on above: Order Comment: REDRA W. PREVIOUS SPECIMEN REJECTED DUE TOSPECIMEN BEING HEMOLYZED. 09/21/24 1315 Jevon Angeles. Performed By: #### L 500.4050, L501.2450 ####[facility] [address] [place], [address] Bilirubin [Mass/Vol] 1.08 mg/dL Normal 0.00-1.30 [facility] Comment on above: Order Comment: REDRA W. PREVIOUS SPECIMEN REJECTED DUE TOSPECIMEN BEING HEMOLYZED. 09/21/245 Jevon Angeles. Performed By: #### L 500.4050, L501.2450 ####[facility] [address] [place], [address] BUN/CRE 13.7 RATIO Normal 10-20 [facility] Comment on above: Order Comment: REDRA W. PREVIOUS SPECIMEN REJECTED DUE TOSPECIMEN BEING HEMOLYZED. 09/21/245 Jevon Angeles. Performed By: #### L 500.4050, L501.2450 ####[facility] [address] [place], [address] Calcium [Mass/Vol] 9.3 mg/dL Normal 7.6-11.0 [facility] Comment on above: Order Comment: REDRA W. PREVIOUS SPECIMEN REJECTED DUE TOSPECIMEN BEING HEMOLYZED. 09/21/245 Jevon Vergarar. Performed By: #### L 500.4050, L501.2450 ####[facility] [address] [place], [address] Chloride [Moles/Vol] 95 mmol/L Low 98-108 [facility] Comment on above: Order Comment: REDRA W. PREVIOUS SPECIMEN REJECTED DUE TOSPECIMEN BEING HEMOLYZED. 09/21/24 1315 Jevon Angeles. Performed By: #### L 500.4050, L501.2450 ####[facility] [address] [place], [address] CO2 [Moles/Vol] 25.8 mmol/L Normal 21.0-32.0 [facility] Comment on above: Order Comment: REDRA W. PREVIOUS SPECIMEN REJECTED DUE TOSPECIMEN BEING HEMOLYZED. 09/21/245 Jevon Angeles. Performed By: #### L 500.4050, L501.2450 ####[facility] [address] [place], [address] Creatinine [Mass/Vol] 0.67 mg/dL Low 0.70-1.20 [facility] Comment on above: Order Comment: REDRA W. PREVIOUS SPECIMEN REJECTED DUE TOSPECIMEN BEING HEMOLYZED. 09/21/241314 Jevon Angeles. Performed By: #### L 500.4050, L501.2450 ####[facility] [address] [place], [address] ECRCL 107.12 ml/min Normal 50-250 [facility] Comment on above: Order Comment: REDRA W. PREVIOUS SPECIMEN REJECTED DUE TOSPECIMEN BEING HEMOLYZED. 09/21/241314 Jevon Squires Performed By: #### L 500.4050, L501.2450 ####[facility] [address] [place], [address] GAP 11 Normal 5-15 [facility] Comment on above: Order Comment: REDRA W. PREVIOUS SPECIMEN REJECTED DUE TOSPECIMEN BEING HEMOLYZED. 09/21/245 Jevon Angeles. Performed By: #### L 500.4050, L501.2450 ####[facility] [address] [place], [address] GFR/1.73 sq M.predicted among non-blacks MDRD (S/P/Bld) [Vol rate/Area] 105 mL/min/{1.73_m2} Normal >60 [facility] Comment on above: Order Comment: REDRA W. PREVIOUS SPECIMEN REJECTED DUE TOSPECIMEN BEING HEMOLYZED. 09/21/241314 Jevon Squires Result Comment: mL/m in/1.73m2 CKD-EPI Creatinine Equation (2020) Performed By: #### L 500.4050, L501.2450 ####[facility] [address] [place], [address] Globulin (S) [Mass/Vol] 3.3 g/dL Normal 2.2-4.2 [facility] Comment on above: Order Comment: REDRA W. PREVIOUS SPECIMEN REJECTED DUE TOSPECIMEN BEING HEMOLYZED. 09/21/241314 Jevon Angeles. Performed By: #### L 500.4050, L501.2450 ####[facility] [address] [place], [address] Glucose [Mass/Vol] 336 mg/dL High 70-99 [facility] Comment on above: Order Comment: REDRA W. PREVIOUS SPECIMEN REJECTED DUE TOSPECIMEN BEING HEMOLYZED. 09/21/241314 Jevon Squires Performed By: #### L 500.4050, L501.2450 ####[facility] [address] [place], [address] Potassium [Moles/Vol] 3.3 mmol/L Normal 3.3-5.1 [facility] Comment on above: Order Comment: REDRA W. PREVIOUS SPECIMEN REJECTED DUE TOSPECIMEN BEING HEMOLYZED. 09/21/241314 Jevon Squires Performed By: #### L 500.4050, L501.2450 ####[facility] [address] [place], [address] Sodium [Moles/Vol] 132 mmol/L Low 133-145 [facility] Comment on above: Order Comment: REDRA W. PREVIOUS SPECIMEN REJECTED DUE TOSPECIMEN BEING HEMOLYZED. 09/21/245 Jevon Vergarar. Performed By: #### L 500.4050, L501.2450 ####[facility] [address] [place], [address] T PROT 6.9 g/dL Normal 5.9-8.4 [facility] Comment on above: Order Comment: REDRA W. PREVIOUS SPECIMEN REJECTED DUE TOSPECIMEN BEING HEMOLYZED. 09/21/245 Jevon Vergarar. Performed By: #### L 500.4050, L501.2450 ####[facility] [address] [place], [address] Urea nitrogen [Mass/Vol] 9 mg/dL Normal 4-19 [facility] Comment on above: Order Comment: REDRA W. PREVIOUS SPECIMEN REJECTED DUE TOSPECIMEN BEING HEMOLYZED. 09/21/241314 Jevon Vergarar. Performed By: #### L 500.4050, L501.2450 ####[facility] [address] [place], [address] ALB Normal 3.5-5.0 [facility] Comment on above: Result Comment: This specimen has been REJECTED due to Laboratory criteria:Hemolyzed.ED STAFF has been notified of need of recollection.09/21/241313 Jevon R Stoner Performed By: #### L 100.0100, L500.4050 ####[facility] [address] [place], [address] ALK PHOS Normal 35-104 [facility] Comment on above: Result Comment: This specimen has been REJECTED due to Laboratory criteria:Hemolyzed.ED STAFF has been notified of need of recollection.09/21/241313 Jevon R Stoner Performed By: #### L 100.0100, L500.4050 ####[facility] [address] [place], [address] ALT Normal <=34 [facility] Comment on above: Result Comment: This specimen has been REJECTED due to Laboratory criteria:Hemolyzed.ED STAFF has been notified of need of recollection.09/21/244 Jevon R Stoner Performed By: #### L 100.0100, L500.4050 ####[facility] [address] [place], [address] AST Normal <=31 [facility] Comment on above: Result Comment: This specimen has been REJECTED due to Laboratory criteria:Hemolyzed.ED STAFF has been notified of need of recollection.09/21/244 Jevon R Stoner Performed By: #### L 100.0100, L500.4050 ####[facility] [address] [place], [address] BUN Normal 4-19 [facility] Comment on above: Result Comment: This specimen has been REJECTED due to Laboratory criteria:Hemolyzed.ED STAFF has been notified of need of recollection.09/21/241313 Jevon R Stoner Performed By: #### L 100.0100, L500.4050 ####[facility] [address] [place], [address] BUN/CRE Normal 10-20 [facility] Comment on above: Result Comment: This specimen has been REJECTED due to Laboratory criteria:Hemolyzed.ED STAFF has been notified of need of recollection.09/21/241313 Jevon R Stoner Performed By: #### L 100.0100, L500.4050 ####[facility] [address] [place], [address] Calcium Normal 7.6-11.0 [facility] Comment on above: Result Comment: This specimen has been REJECTED due to Laboratory criteria:Hemolyzed.ED STAFF has been notified of need of recollection.09/21/241313 Jevon R Stoner Performed By: #### L 100.0100, L500.4050 ####[facility] [address] [place], [address] CL Normal 98-108 [facility] Comment on above: Result Comment: This specimen has been REJECTED due to Laboratory criteria:Hemolyzed.ED STAFF has been notified of need of recollection.09/21/244 Jevon R Stoner Performed By: #### L 100.0100, L500.4050 ####[facility] [address] [place], [address] CO2 Normal 21.0-32.0 [facility] Comment on above: Result Comment: This specimen has been REJECTED due to Laboratory criteria:Hemolyzed.ED STAFF has been notified of need of recollection.09/21/244 Jevon R Stoner Performed By: #### L 100.0100, L500.4050 ####[facility] [address] [place], [address] CREAT,SERUM Normal 0.70-1.20 [facility] Comment on above: Result Comment: This specimen has been REJECTED due to Laboratory criteria:Hemolyzed.ED STAFF has been notified of need of recollection.09/21/241313 Jevon R Stoner Performed By: #### L 100.0100, L500.4050 ####[facility] [address] [place], [address] eGFR Normal >60 [facility] Comment on above: Result Comment: This specimen has been REJECTED due to Laboratory criteria:Hemolyzed.ED STAFF has been notified of need of recollection.09/21/241313 Jevon R Stoner Performed By: #### L 100.0100, L500.4050 ####[facility] [address] [place], [address] GAP Normal 5-15 [facility] Comment on above: Result Comment: This specimen has been REJECTED due to Laboratory criteria:Hemolyzed.ED STAFF has been notified of need of recollection.09/21/244 Jevon R Stoner Performed By: #### L 100.0100, L500.4050 ####[facility] [address] [place], [address] GLU Normal 70-99 [facility] Comment on above: Result Comment: This specimen has been REJECTED due to Laboratory criteria:Hemolyzed.ED STAFF has been notified of need of recollection.09/21/244 Jevon R Stoner Performed By: #### L 100.0100, L500.4050 ####[facility] [address] [place], [address] Potassium Normal 3.3-5.1 [facility] Comment on above: Result Comment: This specimen has been REJECTED due to Laboratory criteria:Hemolyzed.ED STAFF has been notified of need of recollection.09/21/244 Jevon R Stoner Performed By: #### L 100.0100, L500.4050 ####[facility] [address] [place], [address] T BILI Normal 0.00-1.30 [facility] Comment on above: Result Comment: This specimen has been REJECTED due to Laboratory criteria:Hemolyzed.ED STAFF has been notified of need of recollection.09/21/244 Jevon R Stoner Performed By: #### L 100.0100, L500.4050 ####[facility] [address] [place], [address] T PROT Normal 5.9-8.4 [facility] Comment on above: Result Comment: This specimen has been REJECTED due to Laboratory criteria:Hemolyzed.ED STAFF has been notified of need of recollection.09/21/244 Jevon R Stoner Performed By: #### L 100.0100, L500.4050 ####[facility] [address] [place], [address] Comprehensive Metabolic Profil Normal 133-145 [facility] Comment on above: Result Comment: This specimen has been REJECTED due to Laboratory criteria:Hemolyzed.ED STAFF has been notified of need of recollection.09/21/24 1314 Jevon Angeles Performed By: #### L 100.0100, L500.4050 ####[facility] [address] [place], [address] Creatinine [Mass/Vol]Ordered By: Riccardo Hillman on 09-21-2024 Serum creatinine measurement (mass/volume) 0.67 mg/dL Low 0.70-1.20 [facility] Emergency Department Summary on 09-21-2024 Emergency Department Summary Normal [facility] Eosinophil percentageOrdered By: Nina Richardson on 09-21-2024 Eosinophils/100 WBC (Bld) 0.6 % 0-5 [facility] Eosinophil percentage 0.6 % 0-5 [facility] Erythrocyte distribution wid th (RBC) [Ratio]Ordered By: Nina Richardson on 09-21-2024 Erythrocyte distribution width ratio 13.0 % 11.6-14.6 [facility] Erythrocyte distribution width standard deviation 39.7 fl 35.1-43.9 [facility] Erythrocyte distribution wid th ratioOrdered By: Nina Richardson on 09-21-2024 Erythrocyte distribution width (RBC) [Ratio] 13.0 % 11.6-14.6 [facility] Erythrocyte distribution wid th standard deviationOrdered By: Nina Richardson on 09-21-2024 Erythrocyte distribution width (RBC) [Ratio] 39.7 fl 35.1-43.9 [facility] Estimation of creatinine sylvain aranceOrdered By: Riccardo Hillman on 09-21-2024 Estimation of creatinine clearance 107.12 ml/min 50-250 [facility] GFR/1.73 sq M.predicted estephanie g non-blacks MDRD (S/P/Bld) [Vol rate/Area]Ordered By: Riccardo Hillman on 09-21-2024 Glomerular filtration rate (GFR) estimation/1.73 sq m using serum, plasma, or whole b 105 >60 [facility] Glomerular filtration rate ( GFR) estimation/1.73 sq m using serum, plasma, or whole bOrdered By: Riccardo Hillman on 09-21-2024 GFR/1.73 sq M.predicted among non-blacks MDRD (S/P/Bld) [Vol rate/Area] 105 mL/min/{1.73_m2} >60 [facility] Glucose Ql (U)Ordered By: Es Richardson on 09-21-2024 Urine glucose detection 1000 mg/dl High Normal [facility] Glucose [Mass/Vol]Ordered By : Riccardo Hillman on 09-21-2024 Serum glucose measurement (mass/volume) 336 mg/dL High 70-99 [facility] Hematocrit Auto (Bld) [Volum e fraction]Ordered By: Nina Richardson on 09-21-2024 Hematocrit (Bld) [Volume fraction] 37.7 % 37-47 [facility] Automated blood hematocrit (percentage) 37.7 % 37-47 [facility] Hemoglobin measurementOrdere d By: Nina Richardson on 09-21-2024 Hemoglobin (Bld) [Mass/Vol] 13.0 g/dL 12.0-15.0 [facility] Hemoglobin measurement 13.0 g/dL 12.0-15.0 [facility] Immature granulocytes/100 WB C Auto (Bld)Ordered By: Nina Richardson on 09-21-2024 Immature granulocytes/100 WBC (Bld) 0.300 % 0.0-0.9 [facility] Automated immature granulocyte percentage 0.300 % 0.0-0.9 [facility] Ketones Test strip Ql (U)Ord ered By: Nina Richardson on 09-21-2024 Ketones Ql (U) Negative Negative [facility] Lipaseon 09-21-2024 Lipase [Catalytic activity/Vol] 16 U/L Normal 13-75 [facility] Comment on above: Order Comment: REUBEN No. PREVIOUS SPECIMEN REJECTED DUE TOSPECIMEN BEING HEMOLYZED. 09/21/24 1315 Jevon Squires Result Comment: Gege edgar note:LIPASE revised reference range effective 22.New Lipase methodology. Expected to produce lower valuesthan the previous assay method.NEW Reference Range: 13 - 75 U/L Performed By: #### L 500.4050, L501.2450 ####[facility] [address] [place], [address] Lipase measurementOrdered By : Riccardo Hillman on 09-21-2024 Lipase measurement 16 U/L 13-75 [facility] Lymphocytes Auto (Unsp spec) [#/Vol]Ordered By: Nina Richardson on 09-21-2024 Absolute lymphocyte count 1.03 X10^3/uL 0.83-4.51 [facility] Lymphocytes/100 WBC Auto (Un sp spec)Ordered By: Nina Richardson on 09-21-2024 Automated lymphocyte count as percentage of total leukocytes 9.8 % Low 19-41 [facility] MCV (RBC) [Entitic vol]Order ed By: Nina Richardson on 09-21-2024 MCV (mean corpuscular volume) determination 84.0 fL 81-99 [facility] MCV (mean corpuscular volume ) determinationOrdered By: Nina Richardson on 09-21-2024 MCV (RBC) [Entitic vol] 84.0 fL 81-99 [facility] Mean corpuscular hemoglobin (MCH) determinationOrdered By: Nina Richardson on 09-21-2024 MCH (RBC) [Entitic mass] 29.0 pg 27.0-32.0 [facility] Mean corpuscular hemoglobin (MCH) determination 29.0 pg 27.0-32.0 [facility] Mean corpuscular hemoglobin concentration (MCHC) determinationOrdered By: Nina Richardson on 09-21-2024 Mean corpuscular hemoglobin concentration (MCHC) determination 34.5 g/dL 32-36 [facility] Mean platelet volume determi nationOrdered By: Nina Richardson on 09-21-2024 Mean platelet volume determination 9.3 fl 6.2-12.0 [facility] Microscopic analysis of urin e for red blood cells (RBC)Ordered By: Nina Richardson on 09-21-2024 Microscopic analysis of urine for red blood cells (RBC) 0-5 SEEN /hpf 5-10 [facility] Monocyte percentageOrdered B y: Nina Richardson on 09-21-2024 Monocytes/100 WBC (Bld) 4.3 % 0-10 [facility] Monocyte percentage 4.3 % 0-10 [facility] Mucus LM Ql (Urine sed)Order ed By: Nina Richardson on 09-21-2024 Mucus Ql (Urine sed) 0 SEEN /hpf [facility] Neutrophil percentageOrdered By: Nina Richardson on 09-21-2024 Neutrophils/100 WBC (Bld) 84.6 % High 47-70 [facility] Neutrophil percentage 84.6 % High 47-70 [facility] Nitrite Test strip Ql (U)Ord ered By: Nina Richardson on 09-21-2024 Nitrite Ql (U) Negative Negative [facility] No Panel InformationOrdered By: Riccardo Hillman on 09-21-2024 19 U/L <32 [facility] Nucleated red blood cell per centageOrdered By: Nina Richardson on 09-21-2024 Nucleated red blood cell percentage 0 % 0-5 [facility] Platelet countOrdered By: Es Richardson on 09-21-2024 Platelets (Bld) [#/Vol] 275 10*3/uL 150-450 [facility] Platelet count 275 K/mm3 150-450 [facility] Potassium (Unsp spec) [Mass/ Vol]Ordered By: Riccardo Hillman on 09-21-2024 Potassium measurement (mass/volume) 3.3 mmol/L 3.3-5.1 [facility] Potassium measurement (mass/ volume)Ordered By: Riccardo Hillman on 09-21-2024 Potassium (Unsp spec) [Mass/Vol] 3.3 mmol/L 3.3-5.1 [facility] Protein Test strip Ql (U)Ord ered By: Nina Richardson on 09-21-2024 Protein Ql (U) 100 mg/dl High Negative [facility] Urine protein assay by test strip, semi-quantitative 100 mg/dl High Negative [facility] RBC Auto (Bld) [#/Vol]Ordere d By: Nina Richardson on 09-21-2024 RBC (Bld) [#/Vol] 4.49 10*6/uL 4.2-5.4 [facility] Automated blood erythrocyte count 4.49 M/mm3 4.2-5.4 [facility] Serum creatinine measurement (mass/volume)Ordered By: Riccardo Hillman on 09-21-2024 Creatinine [Mass/Vol] 0.67 mg/dL Low 0.70-1.20 [facility] Serum globulin measurementOr dered By: Riccardo Hillman on 09-21-2024 Globulin (S) [Mass/Vol] 3.3 g/dL 2.2-4.2 [facility] Serum globulin measurement 3.3 g/dL 2.2-4.2 [facility] Serum glucose measurement (m ass/volume)Ordered By: Riccardo Hillman on 09-21-2024 Glucose [Mass/Vol] 336 mg/dL High 70-99 [facility] Serum or plasma alanine hamilton otransferase (ALT) measurementOrdered By: Riccardo Hillman on 09-21-2024 ALT [Catalytic activity/Vol] 13 U/L <35 [facility] Serum or plasma albumin xiomara urement (mass/volume)Ordered By: Riccardo Hillman on 09-21-2024 Albumin [Mass/Vol] 3.6 g/dL 3.5-5.0 [facility] Serum or plasma albumin/glob ulin mass ratioOrdered By: Riccardo Hillman on 09-21-2024 Albumin/Globulin [Mass ratio] 1.1 {ratio} 0.9-2.4 [facility] Serum or plasma alkaline sabiha sphatase measurementOrdered By: Riccardo Hillman on 09-21-2024 ALP [Catalytic activity/Vol] 128 U/L High 35-104 [facility] Serum or plasma calcium xiomara urement (mass/volume)Ordered By: Riccardo Hillman on 09-21-2024 Calcium [Mass/Vol] 9.3 mg/dL 7.6-11.0 [facility] Serum or plasma urea nitroge n measurement (mass/volume)Ordered By: Riccardo Hillman on 09-21-2024 Urea nitrogen [Mass/Vol] 9 mg/dL 4-19 [facility] Sodium levelOrdered By: Riccardo Hillman on 09-21-2024 Sodium [Moles/Vol] 132 mmol/L Low 133-145 [facility] Sodium level 132 mmol/L Low 133-145 [facility] Specific gravity (U) [Rel de nsity]Ordered By: Nina Richardson on 09-21-2024 Urine specific gravity measurement 1.010 1.002-1.03 0 [facility] Squamous epithelial cells de tection in urine sediment by light microscopyOrdered By: Nina Richardson on 09-21-2024 Epithelial cells.squamous LM Ql (Urine sed) 0-5 SEEN /hpf 5- [facility] Total proteinOrdered By: Guerita Hillman on 09-21-2024 Protein [Mass/Vol] 6.9 g/dL 5.9-8.4 [facility] Total protein 6.9 g/dL 5.9-8.4 [facility] Urea nitrogen [Mass/Vol]Orde red By: Riccardo Hillman on 09-21-2024 Serum or plasma urea nitrogen measurement (mass/volume) 9 mg/dL - [facility] Urinalysis, Completeon 09-21 EPI,SQUAMOUS 0-5 SEEN Normal 5- [facility] Comment on above: Order Comment: LUISA CTOR TO SPECIFY Performed By: #### L 400.0001 ####[facility] [address] [facility] [address] RBC 0-5 SEEN Normal 0-5 [facility] Comment on above: Order Comment: LUISA CTOR TO SPECIFY Performed By: #### L 400.0001 ####[facility] [address] [place], [address] YEAST RARE Normal None Seen [facility] Comment on above: Order Comment: LUISA CTOR TO SPECIFY Performed By: #### L 400.0001 ####[facility] [address] [facility] [address] BACTERIA 0 SEEN Normal None Seen [facility] Comment on above: Order Comment: LUISA CTOR TO SPECIFY Performed By: #### L 400.0001 ####[facility] [address] [place], [address] Mucus Ql (Urine sed) 0 SEEN Normal [facility] Comment on above: Order Comment: LUISA CTOR TO SPECIFY Performed By: #### L 400.0001 ####[facility] [address] [facility] [address] WBC 0 SEEN Normal 0-5 [facility] Comment on above: Order Comment: COLLE CTOR TO SPECIFY Performed By: #### L 400.0001 ####[facility] [address] [place], [address] Urine blood detectionOrdered By: Nina Richardson on 09-21-2024 Urine blood detection 25 /ul High Negative [facility] Urine clarityOrdered By: Yamil Richardson on 09-21-2024 Clarity (U) Clear Clear [facility] Urine color determinationOrd ered By: Nina Richardson on 09-21-2024 Color (U) Yellow Yellow [facility] Urine glucose detectionOrder ed By: Nina Richardson on 09-21-2024 Glucose Ql (U) 1000 mg/dl High Normal [facility] Urine leukocyte esterase det ection by dipstickOrdered By: Nina Richardson on 09-21-2024 Leukocyte esterase Test strip Ql (U) Negative Negative [facility] Urine pHOrdered By: Martin Richardson on 09-21-2024 pH (U) 7.0 [pH] 5.0 - 8.0 [facility] Urine sediment bacteria coun t by microscopy (number/high power field)Ordered By: Nina Richardson on 09-21-2024 Bacteria LM.HPF (Urine sed) [#/Area] 0 /[HPF] None Seen [facility] Urine sediment yeast count b y microscopy (number/high powered field)Ordered By: Nina Richardson on 09-21-2024 Yeast LM.HPF (Urine sed) [#/Area] RARE /hpf None Seen [facility] Urine specific gravity measu rementOrdered By: Nina Richardson on 09-21-2024 Specific gravity (U) [Rel density] 1.010 1.002-1.03 0 [facility] Urine total bilirubin detect ion by test stripOrdered By: Nina Richardson on 09-21-2024 Urine total bilirubin detection by test strip Negative Negative [facility] Urine urobilinogen measureme ntOrdered By: Nina Richardson on 09-21-2024 Urobilinogen Ql (U) Normal mg/dl Normal [facility] Urobilinogen Ql (U)Ordered B y: Nina Richardson on 09-21-2024 Urine urobilinogen measurement Normal mg/dl Normal [facility] White blood cell (WBC) count Ordered By: Nina Richardson on 09-21-2024 WBC (Bld) [#/Vol] 10.5 10*3/uL 4.4-11.0 [facility] White blood cell (WBC) count 10.5 K/mm3 4.4-11.0 [facility] White blood cell countOrdere d By: Nina Richardson on 09-21-2024 White blood cell count 0 SEEN /hpf 0-5 [facility] White blood cell count 0 SEEN /hpf [facility] Yeast LM.HPF (Urine sed) [#/ Area]Ordered By: Nina Richardson on 09-21-2024 Urine sediment yeast count by microscopy (number/high powered field) RARE /hpf None Seen [facility] pH (U)Ordered By: Nina Richardson on 09-21-2024 Urine pH 7.0 5.0 - 8.0 [facility] Absolute lymphocyte countOrd ered By: Latricia Aaron on 09-16-2024 Lymphocytes Auto (Unsp spec) [#/Vol] 1.72 10*3/uL 0.83-4.51 [facility] Absolute neutrophil countOrd ered By: Latricia Aaron on 09-16-2024 Absolute neutrophil count 10.5 X10^3/uL High 2.0-7.7 [facility] Anion gap [Moles/Vol]Ordered By: Brenda Posadas on 09-16-2024 Anion gap in Serum or Plasma 10 10-16 [facility] Anion gap in Serum or Plasma Ordered By: Brenda Posadas on 09-16-2024 Anion gap [Moles/Vol] 10 mmol/L 10-16 [facility] Automated lymphocyte count a s percentage of total leukocytesOrdered By: Latricia Aaron on 09-16-2024 Lymphocytes/100 WBC Auto (Unsp spec) 13.0 % Low 19-41 [facility] BUN/creatinine ratioOrdered By: Brenda Posadas on 09-16-2024 Urea nitrogen/Creatinine [Mass ratio] 24.8 mg/mg High 10-20 [facility] BUN/creatinine ratio 24.8 RATIO High 10-20 [facility] Basic Metabolic Profile (BMP )on 09-16-2024 BUN/CRE 24.8 RATIO High -20 [facility] Comment on above: Performed By: #### L 500.2500, L100.0100 ####[facility] [address] [place], [address] Calcium [Mass/Vol] 9.3 mg/dL Normal 7.6-11.0 [facility] Comment on above: Performed By: #### L 500.2500, L100.0100 ####[facility] [address] [place], [address] Chloride [Moles/Vol] 101 mmol/L Normal 98-108 [facility] Comment on above: Performed By: #### L 500.2500, L100.0100 ####[facility] [address] [place], [address] CO2 [Moles/Vol] 27.0 mmol/L Normal 21.0-32.0 [facility] Comment on above: Performed By: #### L 500.2500, L100.0100 ####[facility] [address] [place], [address] Creatinine [Mass/Vol] 0.69 mg/dL Low 0.70-1.20 [facility] Comment on above: Performed By: #### L 500.2500, L100.0100 ####[facility] [address] [place], [address] ECRCL 104.49 ml/min Normal 50-250 [facility] Comment on above: Performed By: #### L 500.2500, L100.0100 ####[facility] [address] [place], [address] GAP 10 Normal 5-15 [facility] Comment on above: Performed By: #### L 500.2500, L100.0100 ####[facility] [address] [place], [address] GFR/1.73 sq M.predicted among non-blacks MDRD (S/P/Bld) [Vol rate/Area] 104 mL/min/{1.73_m2} Normal >60 [facility] Comment on above: Result Comment: mL/m in/1.73m2 CKD-EPI Creatinine Equation (2020) Performed By: #### L 500.2500, L100.0100 ####[facility] [address] [place], [address] Glucose [Mass/Vol] 195 mg/dL High 70-99 [facility] Comment on above: Performed By: #### L 500.2500, L100.0100 ####[facility] [address] [place], [address] Potassium [Moles/Vol] 4.1 mmol/L Normal 3.3-5.1 [facility] Comment on above: Performed By: #### L 500.2500, L100.0100 ####[facility] [address] [place], [address] Sodium [Moles/Vol] 138 mmol/L Normal 133-145 [facility] Comment on above: Performed By: #### L 500.2500, L100.0100 ####[facility] [address] [place], [address] Urea nitrogen [Mass/Vol] 17 mg/dL Normal 4-19 [facility] Comment on above: Performed By: #### L 500.2500, L100.0100 ####[facility] [address] [place], [address] Basophil percentageOrdered B y: Latricia Aaron on 09-16-2024 Basophils/100 WBC (Bld) 0.4 % 0-1 [facility] Basophil percentage 0.4 % 0-1 [facility] Bedside Glucoseon 09-16-2024 FINGERSTICK GLU 204 mg/dL High 74-106 [facility] Comment on above: Result Comment: TALIA GEMENT OF PATIENT CARE PER NURSING PROTOCOL Performed By: #### L 501.080 ####[facility] [address] [place], [address] FINGERSTICK GLU 215 mg/dL High 74-106 [facility] Comment on above: Result Comment: TALIA GEMENT OF PATIENT CARE PER NURSING PROTOCOL Performed By: #### L 501.080 ####[facility] [address] [place], [address] CBC W/Diff, Automatedon 09-02 Absolute Lymph 1.72 X10 3/uL Normal 0.83-4.51 [facility] Comment on above: Performed By: #### L 100.0100 ####[facility] [address] [place], [address] Absolute Neut 10.5 X10 3/uL High 2.0-7.7 [facility] Comment on above: Performed By: #### L 100.0100 ####[facility] [address] [place], [address] Basophils/100 WBC (Bld) 0.4 % Normal 0-1 [facility] Comment on above: Performed By: #### L 100.0100 ####[facility] [address] [place], [address] Eosinophils/100 WBC (Bld) 0.5 % Normal 0-5 [facility] Comment on above: Performed By: #### L 100.0100 ####[facility] [address] [place], [address] Erythrocyte distribution width (RBC) [Ratio] 13.8 % Normal 11.6-14.6 [facility] Comment on above: Performed By: #### L 100.0100 ####[facility] [address] [place], [address] Hematocrit (Bld) [Volume fraction] 35.1 % Low 37-47 [facility] Comment on above: Performed By: #### L 100.0100 ####[facility] [address] [place], [address] Hemoglobin (Bld) [Mass/Vol] 11.4 g/dL Low 12.0-15.0 [facility] Comment on above: Performed By: #### L 100.0100 ####[facility] [address] [place], [address] IG% 0.500 Normal 0.0-0.9 [facility] Comment on above: Result Comment: IG% - Immature Granulocytes (promyelocytes, myelocytes andmetamyelocytes) > 1% indicates that a LEFT SHIFT is Present. Performed By: #### L 100.0100 ####[facility] [address] [place], [address] Lymphocytes/100 WBC (Bld) 13.0 % Low 19-41 [facility] Comment on above: Performed By: #### L 100.0100 ####[facility] [address] [place], [address] MCH (RBC) [Entitic mass] 27.9 pg Normal 27.0-32.0 [facility] Comment on above: Performed By: #### L 100.0100 ####[facility] [address] [place], [address] MCHC (RBC) [Mass/Vol] 32.5 g/dL Normal 32-36 [facility] Comment on above: Performed By: #### L 100.0100 ####[facility] [address] [place], [address] MCV (RBC) [Entitic vol] 85.8 fL Normal 81-99 [facility] Comment on above: Performed By: #### L 100.0100 ####[facility] [address] [place], [address] Monocytes/100 WBC (Bld) 6.2 % Normal 0-10 [facility] Comment on above: Performed By: #### L 100.0100 ####[facility] [address] [place], [address] Neutrophils/100 WBC (Bld) 79.4 % High 47-70 [facility] Comment on above: Performed By: #### L 100.0100 ####[facility] [address] [place], [address] Nucleated RBC (Bld) [#/Vol] 0 10*3/uL Normal 0-5 [facility] Comment on above: Performed By: #### L 100.0100 ####[facility] [address] [place], [address] Platelet mean volume (Bld) [Entitic vol] 9.9 fL Normal 6.2-12.0 [facility] Comment on above: Performed By: #### L 100.0100 ####[facility] [address] [place], [address] Platelets (Bld) [#/Vol] 229 10*3/uL Normal 150-450 [facility] Comment on above: Performed By: #### L 100.0100 ####[facility] [address] [place], [address] RBC (Bld) [#/Vol] 4.09 10*6/uL Low 4.2-5.4 [facility] Comment on above: Performed By: #### L 100.0100 ####[facility] [address] [place], [address] RDW SD 43.5 fl Normal 35.1-43.9 [facility] Comment on above: Performed By: #### L 100.0100 ####[facility] [address] [place], [address] WBC (Bld) [#/Vol] 13.2 10*3/uL High 4.4-11.0 [facility] Comment on above: Performed By: #### L 100.0100 ####[facility] [address] [place], [address] Absolute Neut Normal 2.0-7.7 [facility] Comment on above: Result Comment: CLOT FREDDY, SPOKE WITH RANGLE Performed By: #### L 500.2500, L100.0100 ####[facility] [address] [place], [address] HCT Normal 37-47 [facility] Comment on above: Result Comment: CLOT FREDDY, SPOKE WITH RANGLE Performed By: #### L 500.2500, L100.0100 ####[facility] [address] [place], [address] HGB Normal 12.0-15.0 [facility] Comment on above: Result Comment: CLOT FREDDY, SPOKE WITH RANGLE Performed By: #### L 500.2500, L100.0100 ####[facility] [address] [place], [address] MCH Normal 27.0-32.0 [facility] Comment on above: Result Comment: CLOT FREDDY, SPOKE WITH RANGLE Performed By: #### L 500.2500, L100.0100 ####[facility] [address] [place], [address] MCHC Normal 32-36 [facility] Comment on above: Result Comment: CLOT FREDDY, SPOKE WITH RANGLE Performed By: #### L 500.2500, L100.0100 ####[facility] [address] [place], [address] MCV Normal 81-99 [facility] Comment on above: Result Comment: CLOT FREDDY, SPOKE WITH RANGLE Performed By: #### L 500.2500, L100.0100 ####[facility] [address] [place], [address] NEUT% Normal 47-70 [facility] Comment on above: Result Comment: CLOT FREDDY, SPOKE WITH RANGLE Performed By: #### L 500.2500, L100.0100 ####[facility] [address] [place], [address] PLT Normal 150-450 [facility] Comment on above: Result Comment: CLOT FREDDY, SPOKE WITH RANGLE Performed By: #### L 500.2500, L100.0100 ####[facility] [address] [place], [address] RBC Normal 4.2-5.4 [facility] Comment on above: Result Comment: CLOT FREDDY, SPOKE WITH RANGLE Performed By: #### L 500.2500, L100.0100 ####[facility] [address] [place], [address] RDW CV Normal 11.6-14.6 [facility] Comment on above: Result Comment: CLOT FREDDY, SPOKE WITH RANGLE Performed By: #### L 500.2500, L100.0100 ####[facility] [address] [place], [address] RDW SD Normal 35.1-43.9 [facility] Comment on above: Result Comment: CLOT FREDDY, SPOKE WITH RANGLE Performed By: #### L 500.2500, L100.0100 ####[facility] [address] [place], [address] WBC Normal 4.4-11.0 [facility] Comment on above: Result Comment: CLOT FREDYD, SPOKE WITH RANGLE Performed By: #### L 500.2500, L100.0100 ####[facility] [address] [place], [address] Calcium [Mass/Vol]Ordered By : Brenda Posadas on 09-16-2024 Serum or plasma calcium measurement (mass/volume) 9.3 mg/dL 7.6-11.0 [facility] Carbon dioxide, total [Moles /volume] in Central venous bloodOrdered By: Brenda Posadas on 09-16-2024 CO2 [Moles/Vol] 27.0 mmol/L 21.0-32.0 [facility] Carbon dioxide, total [Moles/volume] in Central venous blood 27.0 mmol/L 21.0-32.0 [facility] Chloride assayOrdered By: Martin Posadas on 09-16-2024 Chloride [Moles/Vol] 101 mmol/L 98-108 [facility] Chloride assay 101 mmol/L 98-108 [facility] Creatinine [Mass/Vol]Ordered By: Brenda Posadas on 09-16-2024 Serum creatinine measurement (mass/volume) 0.69 mg/dL Low 0.70-1.20 [facility] Eosinophil percentageOrdered By: Latricia Aaron on 09-16-2024 Eosinophils/100 WBC (Bld) 0.5 % 0-5 [facility] Eosinophil percentage 0.5 % 0-5 [facility] Erythrocyte distribution wid th (RBC) [Ratio]Ordered By: Latricia Aaron on 09-16-2024 Erythrocyte distribution width ratio 13.8 % 11.6-14.6 [facility] Erythrocyte distribution width standard deviation 43.5 fl 35.1-43.9 [facility] Erythrocyte distribution wid th ratioOrdered By: Latricia Aaron on 09-16-2024 Erythrocyte distribution width (RBC) [Ratio] 13.8 % 11.6-14.6 [facility] Erythrocyte distribution wid th standard deviationOrdered By: Latricia Aaron on 09-16-2024 Erythrocyte distribution width (RBC) [Ratio] 43.5 fl 35.1-43.9 [facility] Estimation of creatinine sylvain aranceOrdered By: Brenda Posadas on 09-16-2024 Estimation of creatinine clearance 104.49 ml/min 50-250 [facility] GFR/1.73 sq M.predicted estephanie g non-blacks MDRD (S/P/Bld) [Vol rate/Area]Ordered By: Brenda Posadas on 09-16-2024 Glomerular filtration rate (GFR) estimation/1.73 sq m using serum, plasma, or whole b 104 >60 [facility] Glomerular filtration rate ( GFR) estimation/1.73 sq m using serum, plasma, or whole bOrdered By: Brenda Posadas on 09-16-2024 GFR/1.73 sq M.predicted among non-blacks MDRD (S/P/Bld) [Vol rate/Area] 104 mL/min/{1.73_m2} >60 [facility] Glucose [Mass/Vol]Ordered By : Brenda Posadas on 09-16-2024 Serum glucose measurement (mass/volume) 195 mg/dL High 70-99 [facility] Glucose measurement at bedsi deOrdered By: Latricia Aaron on 09-16-2024 Glucose [Mass/Vol] 204 mg/dL High 74-106 [facility] Glucose measurement at bedside 204 mg/dL High 74-106 [facility] Hematocrit Auto (Bld) [Volum e fraction]Ordered By: Latricia Aaron on 09-16-2024 Hematocrit (Bld) [Volume fraction] 35.1 % Low 37-47 [facility] Automated blood hematocrit (percentage) 35.1 % Low 37-47 [facility] Hemoglobin measurementOrdere d By: Latricia Aaron on 09-16-2024 Hemoglobin (Bld) [Mass/Vol] 11.4 g/dL Low 12.0-15.0 [facility] Hemoglobin measurement 11.4 g/dL Low 12.0-15.0 [facility] Immature granulocytes/100 WB C Auto (Bld)Ordered By: Latricia Aaron on 09-16-2024 Immature granulocytes/100 WBC (Bld) 0.500 % 0.0-0.9 [facility] Automated immature granulocyte percentage 0.500 % 0.0-0.9 [facility] Lymphocytes Auto (Unsp spec) [#/Vol]Ordered By: Latricia Aaron on 09-16-2024 Absolute lymphocyte count 1.72 X10^3/uL 0.83-4.51 [facility] Lymphocytes/100 WBC Auto (Un sp spec)Ordered By: Latricia Aaron on 09-16-2024 Automated lymphocyte count as percentage of total leukocytes 13.0 % Low 19-41 [facility] MCV (RBC) [Entitic vol]Order ed By: Latricia Aaron on 09-16-2024 MCV (mean corpuscular volume) determination 85.8 fL 81-99 [facility] MCV (mean corpuscular volume ) determinationOrdered By: Latricia Aaron on 09-16-2024 MCV (RBC) [Entitic vol] 85.8 fL 81-99 [facility] Mean corpuscular hemoglobin (MCH) determinationOrdered By: Latricia Aaron on 09-16-2024 MCH (RBC) [Entitic mass] 27.9 pg 27.0-32.0 [facility] Mean corpuscular hemoglobin (MCH) determination 27.9 pg 27.0-32.0 [facility] Mean corpuscular hemoglobin concentration (MCHC) determinationOrdered By: Latricia Aaron on 09-16-2024 Mean corpuscular hemoglobin concentration (MCHC) determination 32.5 g/dL 32-36 [facility] Mean platelet volume determi nationOrdered By: Latricia Aaron on 09-16-2024 Mean platelet volume determination 9.9 fl 6.2-12.0 [facility] Monocyte percentageOrdered B y: Latricia Aaron on 09-16-2024 Monocytes/100 WBC (Bld) 6.2 % 0-10 [facility] Monocyte percentage 6.2 % 0-10 [facility] Neutrophil percentageOrdered By: Latricia Aaron on 09-16-2024 Neutrophils/100 WBC (Bld) 79.4 % High 47-70 [facility] Neutrophil percentage 79.4 % High 47-70 [facility] Nucleated red blood cell per centageOrdered By: Latricia Aaron on 09-16-2024 Nucleated red blood cell percentage 0 % 0-5 [facility] Platelet countOrdered By: Tristan Aaron on 09-16-2024 Platelets (Bld) [#/Vol] 229 10*3/uL 150-450 [facility] Platelet count 229 K/mm3 150-450 [facility] Potassium (Unsp spec) [Mass/ Vol]Ordered By: Brenda Posadas on 09-16-2024 Potassium measurement (mass/volume) 4.1 mmol/L 3.3-5.1 [facility] Potassium measurement (mass/ volume)Ordered By: Brenda Posadas on 09-16-2024 Potassium (Unsp spec) [Mass/Vol] 4.1 mmol/L 3.3-5.1 [facility] RBC Auto (Bld) [#/Vol]Ordere d By: Latricia Aaron on 09-16-2024 RBC (Bld) [#/Vol] 4.09 10*6/uL Low 4.2-5.4 [facility] Automated blood erythrocyte count 4.09 M/mm3 Low 4.2-5.4 [facility] Serum creatinine measurement (mass/volume)Ordered By: Brenda Posadas on 09-16-2024 Creatinine [Mass/Vol] 0.69 mg/dL Low 0.70-1.20 [facility] Serum glucose measurement (m ass/volume)Ordered By: Brenda Posadas on 09-16-2024 Glucose [Mass/Vol] 195 mg/dL High 70-99 [facility] Serum or plasma calcium xiomara urement (mass/volume)Ordered By: Brenda Posadas on 09-16-2024 Calcium [Mass/Vol] 9.3 mg/dL 7.6-11.0 [facility] Serum or plasma urea nitroge n measurement (mass/volume)Ordered By: Brenda Posadas on 09-16-2024 Urea nitrogen [Mass/Vol] 17 mg/dL - [facility] Sodium levelOrdered By: Gavi Posadas on 09-16-2024 Sodium [Moles/Vol] 138 mmol/L 133-145 [facility] Sodium level 138 mmol/L 133-145 [facility] Urea nitrogen [Mass/Vol]Orde red By: Brenda Posadas on 09-16-2024 Serum or plasma urea nitrogen measurement (mass/volume) 17 mg/dL - [facility] White blood cell (WBC) count Ordered By: Latricia Aaron on 09-16-2024 WBC (Bld) [#/Vol] 13.2 10*3/uL High 4.4-11.0 [facility] White blood cell (WBC) count 13.2 K/mm3 High 4.4-11.0 [facility] Basic Metabolic Profile (BMP )on 09-15-2024 BUN/CRE 19.5 RATIO Normal 10-20 [facility] Comment on above: Performed By: #### L 500.2500, L100.0100 ####[facility] [address] [place], [address] Calcium [Mass/Vol] 9.1 mg/dL Normal 7.6-11.0 [facility] Comment on above: Performed By: #### L 500.2500, L100.0100 ####[facility] [address] [place], [address] Chloride [Moles/Vol] 100 mmol/L Normal 98-108 [facility] Comment on above: Performed By: #### L 500.2500, L100.0100 ####[facility] [address] [place], [address] CO2 [Moles/Vol] 27.6 mmol/L Normal 21.0-32.0 [facility] Comment on above: Performed By: #### L 500.2500, L100.0100 ####[facility] [address] [place], [address] Creatinine [Mass/Vol] 0.79 mg/dL Normal 0.70-1.20 [facility] Comment on above: Performed By: #### L 500.2500, L100.0100 ####[facility] [address] [place], [address] ECRCL 93.04 ml/min Normal 50-250 [facility] Comment on above: Performed By: #### L 500.2500, L100.0100 ####[facility] [address] [place], [address] GAP 8 Normal 5-15 [facility] Comment on above: Performed By: #### L 500.2500, L100.0100 ####[facility] [address] [place], [address] GFR/1.73 sq M.predicted among non-blacks MDRD (S/P/Bld) [Vol rate/Area] 89 mL/min/{1.73_m2} Normal >60 [facility] Comment on above: Result Comment: mL/m in/1.73m2 CKD-EPI Creatinine Equation (2020) Performed By: #### L 500.2500, L100.0100 ####[facility] [address] [place], [address] Glucose [Mass/Vol] 172 mg/dL High 70-99 [facility] Comment on above: Performed By: #### L 500.2500, L100.0100 ####[facility] [address] [place], [address] Potassium [Moles/Vol] 3.9 mmol/L Normal 3.3-5.1 [facility] Comment on above: Performed By: #### L 500.2500, L100.0100 ####[facility] [address] [place], [address] Sodium [Moles/Vol] 136 mmol/L Normal 133-145 [facility] Comment on above: Performed By: #### L 500.2500, L100.0100 ####[facility] [address] [place], [address] Urea nitrogen [Mass/Vol] 15 mg/dL Normal 4-19 [facility] Comment on above: Performed By: #### L 500.2500, L100.0100 ####[facility] [address] [place], [address] Bedside Glucoseon 09-15-2024 FINGERSTICK GLU 278 mg/dL High 74-106 [facility] Comment on above: Result Comment: TALIA CHAMBERS OF PATIENT CARE PER NURSING PROTOCOL Performed By: #### L 501.080 ####[facility] [address] [place], [address] FINGERSTICK GLU 218 mg/dL High 74-106 [facility] Comment on above: Result Comment: TALIA GEMENT OF PATIENT CARE PER NURSING PROTOCOL Performed By: #### L 501.080 ####[facility] [address] [place], [address] FINGERSTICK GLU 234 mg/dL High 74-106 [facility] Comment on above: Result Comment: TALIA GEMENT OF PATIENT CARE PER NURSING PROTOCOL Performed By: #### L 501.080 ####[facility] [address] [place], [address] FINGERSTICK GLU 188 mg/dL High 74-106 [facility] Comment on above: Result Comment: TALIA GEMENT OF PATIENT CARE PER NURSING PROTOCOL Performed By: #### L 501.080 ####[facility] [address] [place], [address] CBC W/Diff, Automatedon 09-02 Absolute Lymph 1.34 X10 3/uL Normal 0.83-4.51 [facility] Comment on above: Performed By: #### L 500.2500, L100.0100 ####[facility] [address] [place], [address] Absolute Neut 6.8 X10 3/uL Normal 2.0-7.7 [facility] Comment on above: Performed By: #### L 500.2500, L100.0100 ####[facility] [address] [place], [address] Basophils/100 WBC (Bld) 0.7 % Normal 0-1 [facility] Comment on above: Performed By: #### L 500.2500, L100.0100 ####[facility] [address] [place], [address] Eosinophils/100 WBC (Bld) 1.2 % Normal 0-5 [facility] Comment on above: Performed By: #### L 500.2500, L100.0100 ####[facility] [address] [place], [address] Erythrocyte distribution width (RBC) [Ratio] 14.0 % Normal 11.6-14.6 [facility] Comment on above: Performed By: #### L 500.2500, L100.0100 ####[facility] [address] [place], [address] Hematocrit (Bld) [Volume fraction] 32.2 % Low 37-47 [facility] Comment on above: Performed By: #### L 500.2500, L100.0100 ####[facility] [address] [place], [address] Hemoglobin (Bld) [Mass/Vol] 10.3 g/dL Low 12.0-15.0 [facility] Comment on above: Performed By: #### L 500.2500, L100.0100 ####[facility] [address] [place], [address] IG% 0.400 Normal 0.0-0.9 [facility] Comment on above: Result Comment: IG% - Immature Granulocytes (promyelocytes, myelocytes andmetamyelocytes) > 1% indicates that a LEFT SHIFT is Present. Performed By: #### L 500.2500, L100.0100 ####[facility] [address] [place], [address] Lymphocytes/100 WBC (Bld) 14.8 % Low 19-41 [facility] Comment on above: Performed By: #### L 500.2500, L100.0100 ####[facility] [address] [place], [address] MCH (RBC) [Entitic mass] 27.5 pg Normal 27.0-32.0 [facility] Comment on above: Performed By: #### L 500.2500, L100.0100 ####[facility] [address] [place], [address] MCHC (RBC) [Mass/Vol] 32.0 g/dL Normal 32-36 [facility] Comment on above: Performed By: #### L 500.2500, L100.0100 ####[facility] [address] [place], [address] MCV (RBC) [Entitic vol] 86.1 fL Normal 81-99 [facility] Comment on above: Performed By: #### L 500.2500, L100.0100 ####[facility] [address] [place], [address] Monocytes/100 WBC (Bld) 8.1 % Normal 0-10 [facility] Comment on above: Performed By: #### L 500.2500, L100.0100 ####[facility] [address] [place], [address] Neutrophils/100 WBC (Bld) 74.8 % High 47-70 [facility] Comment on above: Performed By: #### L 500.2500, L100.0100 ####[facility] [address] [place], [address] Nucleated RBC (Bld) [#/Vol] 0 10*3/uL Normal 0-5 [facility] Comment on above: Performed By: #### L 500.2500, L100.0100 ####[facility] [address] [place], [address] Platelet mean volume (Bld) [Entitic vol] 10.0 fL Normal 6.2-12.0 [facility] Comment on above: Performed By: #### L 500.2500, L100.0100 ####[facility] [address] [place], [address] Platelets (Bld) [#/Vol] 211 10*3/uL Normal 150-450 [facility] Comment on above: Performed By: #### L 500.2500, L100.0100 ####[facility] [address] [place], [address] RBC (Bld) [#/Vol] 3.74 10*6/uL Low 4.2-5.4 [facility] Comment on above: Performed By: #### L 500.2500, L100.0100 ####[facility] [address] [place], [address] RDW SD 43.8 fl Normal 35.1-43.9 [facility] Comment on above: Performed By: #### L 500.2500, L100.0100 ####[facility] [address] [place], [address] WBC (Bld) [#/Vol] 9.0 10*3/uL Normal 4.4-11.0 [facility] Comment on above: Performed By: #### L 500.2500, L100.0100 ####[facility] [address] [place], [address] Consultation - Urologyon Consultation - Urology Normal [facility] Urine Cultureon 09-15-2024 URC Below infection leve l. Yeast, not Ashley albicans [place] Count 1000-10,000 Normal [facility] Comment on above: Performed By: #### L 400.0001, M100.2200 ####[facility] [address] [place], [address] Basic Metabolic Profile (BMP )on 09-14-2024 BUN/CRE 25.9 RATIO High 10-20 [facility] Comment on above: Performed By: #### L 500.2500, L100.0100 ####[facility] [address] [place], [address] Calcium [Mass/Vol] 9.0 mg/dL Normal 7.6-11.0 [facility] Comment on above: Performed By: #### L 500.2500, L100.0100 ####[facility] [address] [place], [address] Chloride [Moles/Vol] 103 mmol/L Normal 98-108 [facility] Comment on above: Performed By: #### L 500.2500, L100.0100 ####[facility] [address] [place], [address] CO2 [Moles/Vol] 20.0 mmol/L Low 21.0-32.0 [facility] Comment on above: Performed By: #### L 500.2500, L100.0100 ####[facility] [address] [place], [address] Creatinine [Mass/Vol] 0.81 mg/dL Normal 0.70-1.20 [facility] Comment on above: Performed By: #### L 500.2500, L100.0100 ####[facility] [address] [place], [address] ECRCL 90.18 ml/min Normal 50-250 [facility] Comment on above: Performed By: #### L 500.2500, L100.0100 ####[facility] [address] [place], [address] GAP 11 Normal 5-15 [facility] Comment on above: Performed By: #### L 500.2500, L100.0100 ####[facility] [address] [place], [address] GFR/1.73 sq M.predicted among non-blacks MDRD (S/P/Bld) [Vol rate/Area] 87 mL/min/{1.73_m2} Normal >60 [facility] Comment on above: Result Comment: mL/m in/1.73m2 CKD-EPI Creatinine Equation (2020) Performed By: #### L 500.2500, L100.0100 ####[facility] [address] [place], [address] Glucose [Mass/Vol] 181 mg/dL High 70-99 [facility] Comment on above: Performed By: #### L 500.2500, L100.0100 ####[facility] [address] [place], [address] Potassium [Moles/Vol] 4.6 mmol/L Normal 3.3-5.1 [facility] Comment on above: Result Comment: Hemo lysis present, Results??could be affected.?? Performed By: #### L 500.2500, L100.0100 ####[facility] [address] [place], [address] Sodium [Moles/Vol] 134 mmol/L Normal 133-145 [facility] Comment on above: Performed By: #### L 500.2500, L100.0100 ####[facility] [address] [place], [address] Urea nitrogen [Mass/Vol] 21 mg/dL High 4-19 [facility] Comment on above: Performed By: #### L 500.2500, L100.0100 ####[facility] [address] [place], [address] Bedside Glucoseon 09-14-2024 FINGERSTICK GLU 188 mg/dL High 74-106 [facility] Comment on above: Result Comment: TALIA GEMENT OF PATIENT CARE PER NURSING PROTOCOL Performed By: #### L 501.080 ####[facility] [address] [place], [address] FINGERSTICK GLU 248 mg/dL High 74-106 [facility] Comment on above: Result Comment: TALIA GEMENT OF PATIENT CARE PER NURSING PROTOCOL Performed By: #### L 501.080 ####[facility] [address] [place], [address] FINGERSTICK GLU 288 mg/dL High 74-106 [facility] Comment on above: Result Comment: TALIA GEMENT OF PATIENT CARE PER NURSING PROTOCOL Performed By: #### L 501.080 ####[facility] [address] [place], [address] FINGERSTICK GLU 172 mg/dL High 74-106 [facility] Comment on above: Result Comment: TALIA GEMENT OF PATIENT CARE PER NURSING PROTOCOL Performed By: #### L 501.080 ####[facility] [address] [place], [address] CBC W/Diff, Automatedon 09-02 Platelets (Bld) [#/Vol] 129 10*3/uL Low 150-450 [facility] Comment on above: Performed By: #### L 500.2500, L100.0100 ####[facility] [address] [place], [address] Culture, Blood (WB)on 2024 CUB LHAND Blood cultures x2, from two different sites No growth in 5 days. Normal [facility] Comment on above: Performed By: #### M 200.1000 ####[facility] [address] [place], [address] Basic Metabolic Profile (BMP )on 09-13-2024 BUN/CRE 17.6 RATIO Normal 10-20 [facility] Comment on above: Performed By: #### L 100.0100, L500.2500 ####[facility] [address] [place], [address] Calcium [Mass/Vol] 9.1 mg/dL Normal 7.6-11.0 [facility] Comment on above: Performed By: #### L 100.0100, L500.2500 ####[facility] [address] [place], [address] Chloride [Moles/Vol] 104 mmol/L Normal 98-108 [facility] Comment on above: Performed By: #### L 100.0100, L500.2500 ####[facility] [address] [place], [address] CO2 [Moles/Vol] 21.1 mmol/L Normal 21.0-32.0 [facility] Comment on above: Performed By: #### L 100.0100, L500.2500 ####[facility] [address] [place], [address] Creatinine [Mass/Vol] 1.02 mg/dL Normal 0.70-1.20 [facility] Comment on above: Performed By: #### L 100.0100, L500.2500 ####[facility] [address] [place], [address] ECRCL 71.49 ml/min Normal 50-250 [facility] Comment on above: Performed By: #### L 100.0100, L500.2500 ####[facility] [address] [place], [address] GAP 11 Normal 5-15 [facility] Comment on above: Performed By: #### L 100.0100, L500.2500 ####[facility] [address] [place], [address] GFR/1.73 sq M.predicted among non-blacks MDRD (S/P/Bld) [Vol rate/Area] 66 mL/min/{1.73_m2} Normal >60 [facility] Comment on above: Result Comment: mL/m in/1.73m2 CKD-EPI Creatinine Equation (2020) Performed By: #### L 100.0100, L500.2500 ####[facility] [address] [place], [address] Glucose [Mass/Vol] 223 mg/dL High 70-99 [facility] Comment on above: Performed By: #### L 100.0100, L500.2500 ####[facility] [address] [place], [address] Potassium [Moles/Vol] 4.2 mmol/L Normal 3.3-5.1 [facility] Comment on above: Performed By: #### L 100.0100, L500.2500 ####[facility] [address] [place], [address] Sodium [Moles/Vol] 136 mmol/L Normal 133-145 [facility] Comment on above: Performed By: #### L 100.0100, L500.2500 ####[facility] [address] [place], [address] Urea nitrogen [Mass/Vol] 18 mg/dL Normal 4-19 [facility] Comment on above: Performed By: #### L 100.0100, L500.2500 ####[facility] [address] [place], [address] Bedside Glucoseon 09-13-2024 FINGERSTICK GLU 207 mg/dL High 74-106 [facility] Comment on above: Result Comment: TALIA GEMENT OF PATIENT CARE PER NURSING PROTOCOL Performed By: #### L 501.080 ####[facility] [address] [place], [address] FINGERSTICK GLU 249 mg/dL High 74-106 [facility] Comment on above: Result Comment: TALIA GEMENT OF PATIENT CARE PER NURSING PROTOCOL Performed By: #### L 501.080 ####[facility] [address] [place], [address] FINGERSTICK GLU 181 mg/dL High 74-106 [facility] Comment on above: Result Comment: TALIA GEMENT OF PATIENT CARE PER NURSING PROTOCOL Performed By: #### L 501.080 ####[facility] [address] [place], [address] FINGERSTICK GLU 214 mg/dL High 74-106 [facility] Comment on above: Result Comment: TALIA GEMENT OF PATIENT CARE PER NURSING PROTOCOL Performed By: #### L 501.080 ####[facility] [address] [place], [address] CBC W/Diff, Automatedon 09-02 Absolute Lymph 1.69 X10 3/uL Normal 0.83-4.51 [facility] Comment on above: Performed By: #### L 100.0100, L500.2500 ####[facility] [address] [place], [address] Absolute Neut 8.9 X10 3/uL High 2.0-7.7 [facility] Comment on above: Performed By: #### L 100.0100, L500.2500 ####[facility] [address] [place], [address] Basophils/100 WBC (Bld) 0.9 % Normal 0-1 [facility] Comment on above: Performed By: #### L 100.0100, L500.2500 ####[facility] [address] [place], [address] Eosinophils/100 WBC (Bld) 1.6 % Normal 0-5 [facility] Comment on above: Performed By: #### L 100.0100, L500.2500 ####[facility] [address] [place], [address] Erythrocyte distribution width (RBC) [Ratio] 14.0 % Normal 11.6-14.6 [facility] Comment on above: Performed By: #### L 100.0100, L500.2500 ####[facility] [address] [place], [address] Hematocrit (Bld) [Volume fraction] 35.1 % Low 37-47 [facility] Comment on above: Performed By: #### L 100.0100, L500.2500 ####[facility] [address] [place], [address] Hemoglobin (Bld) [Mass/Vol] 11.3 g/dL Low 12.0-15.0 [facility] Comment on above: Performed By: #### L 100.0100, L500.2500 ####[facility] [address] [place], [address] IG% 0.600 Normal 0.0-0.9 [facility] Comment on above: Result Comment: IG% - Immature Granulocytes (promyelocytes, myelocytes andmetamyelocytes) > 1% indicates that a LEFT SHIFT is Present. Performed By: #### L 100.0100, L500.2500 ####[facility] [address] [place], [address] Lymphocytes/100 WBC (Bld) 14.4 % Low 19-41 [facility] Comment on above: Performed By: #### L 100.0100, L500.2500 ####[facility] [address] [place], [address] MCH (RBC) [Entitic mass] 28.2 pg Normal 27.0-32.0 [facility] Comment on above: Performed By: #### L 100.0100, L500.2500 ####[facility] [address] [place], [address] MCHC (RBC) [Mass/Vol] 32.2 g/dL Normal 32-36 [facility] Comment on above: Performed By: #### L 100.0100, L500.2500 ####[facility] [address] [place], [address] MCV (RBC) [Entitic vol] 87.5 fL Normal 81-99 [facility] Comment on above: Performed By: #### L 100.0100, L500.2500 ####[facility] [address] [place], [address] Monocytes/100 WBC (Bld) 6.9 % Normal 0-10 [facility] Comment on above: Performed By: #### L 100.0100, L500.2500 ####[facility] [address] [place], [address] Neutrophils/100 WBC (Bld) 75.6 % High 47-70 [facility] Comment on above: Performed By: #### L 100.0100, L500.2500 ####[facility] [address] [place], [address] Nucleated RBC (Bld) [#/Vol] 0 10*3/uL Normal 0-5 [facility] Comment on above: Performed By: #### L 100.0100, L500.2500 ####[facility] [address] [place], [address] Platelet mean volume (Bld) [Entitic vol] 10.1 fL Normal 6.2-12.0 [facility] Comment on above: Performed By: #### L 100.0100, L500.2500 ####[facility] [address] [place], [address] Platelets (Bld) [#/Vol] 232 10*3/uL Normal 150-450 [facility] Comment on above: Performed By: #### L 100.0100, L500.2500 ####[facility] [address] [place], [address] RBC (Bld) [#/Vol] 4.01 10*6/uL Low 4.2-5.4 [facility] Comment on above: Performed By: #### L 100.0100, L500.2500 ####[facility] [address] [place], [address] RDW SD 44.9 fl High 35.1-43.9 [facility] Comment on above: Performed By: #### L 100.0100, L500.2500 ####[facility] [address] [place], [address] WBC (Bld) [#/Vol] 11.7 10*3/uL High 4.4-11.0 [facility] Comment on above: Performed By: #### L 100.0100, L500.2500 ####[facility] [address] [place], [address] Basic Metabolic Profile (BMP )on 09-12-2024 BUN/CRE 24.0 RATIO High 10-20 [facility] Comment on above: Performed By: #### L 100.0100, L500.2500 ####[facility] [address] [place], [address] Calcium [Mass/Vol] 9.0 mg/dL Normal 7.6-11.0 [facility] Comment on above: Performed By: #### L 100.0100, L500.2500 ####[facility] [address] [place], [address] Chloride [Moles/Vol] 105 mmol/L Normal 98-108 [facility] Comment on above: Performed By: #### L 100.0100, L500.2500 ####[facility] [address] [place], [address] CO2 [Moles/Vol] 17.3 mmol/L Low 21.0-32.0 [facility] Comment on above: Performed By: #### L 100.0100, L500.2500 ####[facility] [address] [place], [address] Creatinine [Mass/Vol] 0.86 mg/dL Normal 0.70-1.20 [facility] Comment on above: Performed By: #### L 100.0100, L500.2500 ####[facility] [address] [place], [address] ECRCL 84.22 ml/min Normal 50-250 [facility] Comment on above: Performed By: #### L 100.0100, L500.2500 ####[facility] [address] [place], [address] GAP 11 Normal 5-15 [facility] Comment on above: Performed By: #### L 100.0100, L500.2500 ####[facility] [address] [place], [address] GFR/1.73 sq M.predicted among non-blacks MDRD (S/P/Bld) [Vol rate/Area] 81 mL/min/{1.73_m2} Normal >60 [facility] Comment on above: Result Comment: mL/m in/1.73m2 CKD-EPI Creatinine Equation (2020) Performed By: #### L 100.0100, L500.2500 ####[facility] [address] [place], [address] Glucose [Mass/Vol] 213 mg/dL High 70-99 [facility] Comment on above: Performed By: #### L 100.0100, L500.2500 ####[facility] [address] [place], [address] Potassium [Moles/Vol] 4.7 mmol/L Normal 3.3-5.1 [facility] Comment on above: Result Comment: Hemo lysis present, Results??could be affected.?? Performed By: #### L 100.0100, L500.2500 ####[facility] [address] [place], [address] Sodium [Moles/Vol] 134 mmol/L Normal 133-145 [facility] Comment on above: Performed By: #### L 100.0100, L500.2500 ####[facility] [address] [place], [address] Urea nitrogen [Mass/Vol] 21 mg/dL High 4-19 [facility] Comment on above: Performed By: #### L 100.0100, L500.2500 ####[facility] [address] [place], [address] Bedside Glucoseon 09-12-2024 FINGERSTICK GLU 271 mg/dL High [address] [place] [address] Comment on above: Result Comment: TALIA GEMENT OF PATIENT CARE PER NURSING PROTOCOL Performed By: #### L 501.080 ####[facility] [address] [place], [address] FINGERSTICK GLU 352 mg/dL High [address] [place] [address] Comment on above: Result Comment: TALIA GEMENT OF PATIENT CARE PER NURSING PROTOCOL Performed By: #### L 501.080 ####[facility] [address] [place], [address] FINGERSTICK GLU 195 mg/dL High [address] [place] [address] Comment on above: Result Comment: TALIA GEMENT OF PATIENT CARE PER NURSING PROTOCOL Performed By: #### L 501.080 ####[facility] [address] [place], [address] FINGERSTICK GLU 210 mg/dL High [address] [place] [address] Comment on above: Result Comment: TALIA GEMENT OF PATIENT CARE PER NURSING PROTOCOL Performed By: #### L 501.080 ####[facility] [address] [place], [address] FINGERSTICK GLU 331 mg/dL High [address] [place] [address] Comment on above: Result Comment: TALIA GEMENT OF PATIENT CARE PER NURSING PROTOCOL Performed By: #### L 501.080 ####[facility] [address] [place], [address] Bilirubin Test strip Ql (U)O rdered By: Nichelle Mcneil on 09-12-2024 Bilirubin Ql (U) Negative Negative [facility] CBC W/Diff, Automatedon 09-02 PLT EST ADEQUATE Normal ADEQ [facility] Comment on above: Performed By: #### L 100.0100, L500.2500 ####[facility] [address] [place], [address] CNCOon 09-12-2024 CNCO Letter Text Normal [facility] Clarity (U)Ordered By: Juan Mcneil on 09-12-2024 Urine clarity Clear Clear [facility] Color (U)Ordered By: Nichelle Mcneil on 09-12-2024 Urine color determination Straw Yellow [facility] Consultation - Infectious Dx on 09-12-2024 Consultation - Infectious Dx Normal [facility] Epithelial cells.squamous LM Ql (Urine sed)Ordered By: Nichelle Mcneil on 09-12-2024 Squamous epithelial cells detection in urine sediment by light microscopy 0-5 SEEN /hpf 5-10 [facility] Glucose Ql (U)Ordered By: Olamide Mcneil on 09-12-2024 Urine glucose detection 1000 mg/dl High Normal [facility] Ketones Test strip Ql (U)Ord ered By: Nichelle Mcneil on 09-12-2024 Ketones Ql (U) Negative Negative [facility] Mucus LM Ql (Urine sed)Order ed By: Nichelle Mcneil on 09-12-2024 Mucus Ql (Urine sed) 0 SEEN /hpf [facility] Nitrite Test strip Ql (U)Ord ered By: Nichelle Mcneil on 09-12-2024 Nitrite Ql (U) Negative Negative [facility] Platelet estimateOrdered By: Brenda Posadas on 09-12-2024 Platelets LM Ql (Bld) ADEQUATE ADEQ [facility] Platelets LM Ql (Bld)Ordered By: Brenda Posadas on 09-12-2024 Platelet estimate ADEQUATE ADEQ [facility] Protein Test strip Ql (U)Ord ered By: Nichelle Mcneil on 09-12-2024 Protein Ql (U) 15 mg/dl High Negative [facility] Urine protein assay by test strip, semi-quantitative 15 mg/dl High Negative [facility] Specific gravity (U) [Rel de nsity]Ordered By: Nichelle Mcneil on 09-12-2024 Urine specific gravity measurement 1.010 1.002-1.03 0 [facility] Squamous epithelial cells de tection in urine sediment by light microscopyOrdered By: Nichelle Mcneil on 09-12-2024 Epithelial cells.squamous LM Ql (Urine sed) 0-5 SEEN /hpf 5-10 [facility] Urinalysis, Completeon 09-12 EPI,SQUAMOUS 0-5 SEEN Normal 5-10 [facility] Comment on above: Order Comment: CLEAN CATCH Performed By: #### L 400.0001, M100.2200 ####[facility] [address] [place], [address] YEAST 1+ /hpf Normal None Seen [facility] Comment on above: Order Comment: CLEAN CATCH Performed By: #### L 400.0001, M100.2200 ####[facility] [address] [place], [address] BACTERIA 0 SEEN Normal None Seen [facility] Comment on above: Order Comment: CLEAN CATCH Performed By: #### L 400.0001, M100.2200 ####[facility] [address] [place], [address] Mucus Ql (Urine sed) 0 SEEN Normal [facility] Comment on above: Order Comment: CLEAN CATCH Performed By: #### L 400.0001, M100.2200 ####[facility] [address] [place], [address] RBC 0 SEEN Normal 0-5 [facility] Comment on above: Order Comment: CLEAN CATCH Performed By: #### L 400.0001, M100.2200 ####[facility] [address] [place], [address] WBC 0 SEEN Normal 0-5 [facility] Comment on above: Order Comment: CLEAN CATCH Performed By: #### L 400.0001, M100.2200 ####[facility] [address] [place], [address] Urine clarityOrdered By: Travis Mcneil on 09-12-2024 Clarity (U) Clear Clear [facility] Urine color determinationOrd ered By: Nichelle Mcneil on 09-12-2024 Color (U) Straw Yellow [facility] Urine cultureOrdered By: Travis Mcneil on 09-12-2024 Bacteria identified Cx Nom (U) Yeast, not Ashley albicans Abnormal [facility] Urine culture Yeast, not Ashley albicans Abnormal [facility] Urine glucose detectionOrder ed By: Nichelle Mcneil on 09-12-2024 Glucose Ql (U) 1000 mg/dl High Normal [facility] Urine leukocyte esterase det ection by dipstickOrdered By: Nichelle Mcneil on 09-12-2024 Leukocyte esterase Test strip Ql (U) Negative Negative [facility] Urine pHOrdered By: Nichelle pacheco on 09-12-2024 pH (U) 6.0 [pH] 5.0 - 8.0 [facility] Urine sediment bacteria coun t by microscopy (number/high power field)Ordered By: Nichelle Mcneil on 09-12-2024 Bacteria LM.HPF (Urine sed) [#/Area] 0 /[HPF] None Seen [facility] Urine sediment yeast count b y microscopy (number/high powered field)Ordered By: Nichelle Mcneil on 09-12-2024 Yeast LM.HPF (Urine sed) [#/Area] 1 /[HPF] None Seen [facility] Urine specific gravity measu rementOrdered By: Nichelle Mcneil on 09-12-2024 Specific gravity (U) [Rel density] 1.010 1.002-1.03 0 [facility] Urine total bilirubin detect ion by test stripOrdered By: Nichelle Mcneil on 09-12-2024 Urine total bilirubin detection by test strip Negative Negative [facility] Urine urobilinogen measureme ntOrdered By: Nichelle Mcneil on 09-12-2024 Urobilinogen Ql (U) Normal mg/dl Normal [facility] Urobilinogen Ql (U)Ordered B y: Nichelle Mcneil on 09-12-2024 Urine urobilinogen measurement Normal mg/dl Normal [facility] White blood cell countOrdere d By: Nichelle Mcneil on 09-12-2024 White blood cell count 0 SEEN /hpf 0-5 [facility] White blood cell count 0 SEEN /hpf [facility] Yeast LM.HPF (Urine sed) [#/ Area]Ordered By: Nichelle Mcneil on 09-12-2024 Urine sediment yeast count by microscopy (number/high powered field) 1+ /hpf None Seen [facility] pH (U)Ordered By: Nichelle butler on 09-12-2024 Urine pH 6.0 5.0 - 8.0 [facility] Abdomen Single View (Portabl e)on 09-11-2024 Abdomen Single View (Portable) Normal [facility] Basic Metabolic Profile (BMP )on 09-11-2024 BUN/CRE 21.7 RATIO High 10- [facility] Comment on above: Performed By: #### L 500.2500, L100.0100 ####[facility] [address] [place], [address] Calcium [Mass/Vol] 9.0 mg/dL Normal 7.6-11.0 [facility] Comment on above: Performed By: #### L 500.2500, L100.0100 ####[facility] [address] [place], [address] Chloride [Moles/Vol] 104 mmol/L Normal 98-108 [facility] Comment on above: Performed By: #### L 500.2500, L100.0100 ####[facility] [address] [place], [address] CO2 [Moles/Vol] 21.7 mmol/L Normal 21.0-32.0 [facility] Comment on above: Performed By: #### L 500.2500, L100.0100 ####[facility] [address] [place], [address] Creatinine [Mass/Vol] 0.84 mg/dL Normal 0.70-1.20 [facility] Comment on above: Performed By: #### L 500.2500, L100.0100 ####[facility] [address] [place], [address] ECRCL 85.20 ml/min Normal 50-250 [facility] Comment on above: Performed By: #### L 500.2500, L100.0100 ####[facility] [address] [place], [address] GAP 11 Normal 5-15 [facility] Comment on above: Performed By: #### L 500.2500, L100.0100 ####[facility] [address] [place], [address] GFR/1.73 sq M.predicted among non-blacks MDRD (S/P/Bld) [Vol rate/Area] 84 mL/min/{1.73_m2} Normal >60 [facility] Comment on above: Result Comment: mL/m in/1.73m2 CKD-EPI Creatinine Equation (2020) Performed By: #### L 500.2500, L100.0100 ####[facility] [address] [place], [address] Glucose [Mass/Vol] 171 mg/dL High 70-99 [facility] Comment on above: Performed By: #### L 500.2500, L100.0100 ####[facility] [address] [place], [address] Potassium [Moles/Vol] 4.0 mmol/L Normal 3.3-5.1 [facility] Comment on above: Performed By: #### L 500.2500, L100.0100 ####[facility] [address] [place], [address] Sodium [Moles/Vol] 136 mmol/L Normal 133-145 [facility] Comment on above: Performed By: #### L 500.2500, L100.0100 ####[facility] [address] [place], [address] Urea nitrogen [Mass/Vol] 18 mg/dL Normal 4-19 [facility] Comment on above: Performed By: #### L 500.2500, L100.0100 ####[facility] [address] [place], [address] Bedside Glucoseon 09-11-2024 FINGERSTICK GLU 114 mg/dL High 74-106 [facility] Comment on above: Result Comment: TALIA GEMENT OF PATIENT CARE PER NURSING PROTOCOL Performed By: #### L 501.080 ####[facility] [address] [place], [address] FINGERSTICK GLU 338 mg/dL High 74-106 [facility] Comment on above: Result Comment: TALIA GEMENT OF PATIENT CARE PER NURSING PROTOCOL Performed By: #### L 501.080 ####[facility] [address] [place], [address] FINGERSTICK GLU 142 mg/dL High 74-106 [facility] Comment on above: Result Comment: TALIA GEMENT OF PATIENT CARE PER NURSING PROTOCOL Performed By: #### L 501.080 ####[facility] [address] [place], [address] CBC W/Diff, Automatedon 09-02 Absolute Lymph 2.26 X10 3/uL Normal 0.83-4.51 [facility] Comment on above: Performed By: #### L 500.2500, L100.0100 ####[facility] [address] [place], [address] Absolute Neut 6.8 X10 3/uL Normal 2.0-7.7 [facility] Comment on above: Performed By: #### L 500.2500, L100.0100 ####[facility] [address] [place], [address] Basophils/100 WBC (Bld) 0.6 % Normal 0-1 [facility] Comment on above: Performed By: #### L 500.2500, L100.0100 ####[facility] [address] [place], [address] Eosinophils/100 WBC (Bld) 1.9 % Normal 0-5 [facility] Comment on above: Performed By: #### L 500.2500, L100.0100 ####[facility] [address] [place], [address] Erythrocyte distribution width (RBC) [Ratio] 14.0 % Normal 11.6-14.6 [facility] Comment on above: Performed By: #### L 500.2500, L100.0100 ####[facility] [address] [place], [address] Hematocrit (Bld) [Volume fraction] 33.1 % Low 37-47 [facility] Comment on above: Performed By: #### L 500.2500, L100.0100 ####[facility] [address] [place], [address] Hemoglobin (Bld) [Mass/Vol] 11.0 g/dL Low 12.0-15.0 [facility] Comment on above: Performed By: #### L 500.2500, L100.0100 ####[facility] [address] [place], [address] IG% 0.600 Normal 0.0-0.9 [facility] Comment on above: Result Comment: IG% - Immature Granulocytes (promyelocytes, myelocytes andmetamyelocytes) > 1% indicates that a LEFT SHIFT is Present. Performed By: #### L 500.2500, L100.0100 ####[facility] [address] [place], [address] Lymphocytes/100 WBC (Bld) 22.6 % Normal 19-41 [facility] Comment on above: Performed By: #### L 500.2500, L100.0100 ####[facility] [address] [place], [address] MCH (RBC) [Entitic mass] 28.1 pg Normal 27.0-32.0 [facility] Comment on above: Performed By: #### L 500.2500, L100.0100 ####[facility] [address] [place], [address] MCHC (RBC) [Mass/Vol] 33.2 g/dL Normal 32-36 [facility] Comment on above: Performed By: #### L 500.2500, L100.0100 ####[facility] [address] [place], [address] MCV (RBC) [Entitic vol] 84.4 fL Normal 81-99 [facility] Comment on above: Performed By: #### L 500.2500, L100.0100 ####[facility] [address] [place], [address] Monocytes/100 WBC (Bld) 6.3 % Normal 0-10 [facility] Comment on above: Performed By: #### L 500.2500, L100.0100 ####[facility] [address] [place], [address] Neutrophils/100 WBC (Bld) 68.0 % Normal 47-70 [facility] Comment on above: Performed By: #### L 500.2500, L100.0100 ####[facility] [address] [place], [address] Nucleated RBC (Bld) [#/Vol] 0 10*3/uL Normal 0-5 [facility] Comment on above: Performed By: #### L 500.2500, L100.0100 ####[facility] [address] [place], [address] Platelet mean volume (Bld) [Entitic vol] 9.9 fL Normal 6.2-12.0 [facility] Comment on above: Performed By: #### L 500.2500, L100.0100 ####[facility] [address] [place], [address] Platelets (Bld) [#/Vol] 252 10*3/uL Normal 150-450 [facility] Comment on above: Performed By: #### L 500.2500, L100.0100 ####[facility] [address] [place], [address] RBC (Bld) [#/Vol] 3.92 10*6/uL Low 4.2-5.4 [facility] Comment on above: Performed By: #### L 500.2500, L100.0100 ####[facility] [address] [place], [address] RDW SD 43.2 fl Normal 35.1-43.9 [facility] Comment on above: Performed By: #### L 500.2500, L100.0100 ####[facility] [address] [place], [address] WBC (Bld) [#/Vol] 10.0 10*3/uL Normal 4.4-11.0 [facility] Comment on above: Performed By: #### L 500.2500, L100.0100 ####[facility] [address] [place], [address] Urine Cultureon 09-11-2024 URC Below infection leve l. Presumptive E. coli [place] Count <1000 Normal [facility] Comment on above: Performed By: #### M 100.2200 ####[facility] [address] [place], [address] Vitamin D 1,25-Dihydroxyon 0 09-11-2024 VIT D 1,25 DIHY 29.9 pg/mL Normal 24.8-81.5 [facility] Comment on above: Result Comment: Perf ormed at: [facility] [address] [id number] Director: Karlee Oro MD, Phone: [phone] Performed By: #### L 3300.0960, L501.9520, L506.1001, L100.0100, L500.4050, L509.1000 ####[facility] [address] [place], [address] Basic Metabolic Profile (BMP )on 09-10-2024 BUN/CRE 18.2 RATIO Normal 10-20 [facility] Comment on above: Performed By: #### L 100.0100, L500.2500 ####[facility] [address] [place], [address] Calcium [Mass/Vol] 8.7 mg/dL Normal 7.6-11.0 [facility] Comment on above: Performed By: #### L 100.0100, L500.2500 ####[facility] [address] [place], [address] Chloride [Moles/Vol] 105 mmol/L Normal 98-108 [facility] Comment on above: Performed By: #### L 100.0100, L500.2500 ####[facility] [address] [place], [address] CO2 [Moles/Vol] 23.5 mmol/L Normal 21.0-32.0 [facility] Comment on above: Performed By: #### L 100.0100, L500.2500 ####[facility] [address] [place], [address] Creatinine [Mass/Vol] 1.00 mg/dL Normal 0.70-1.20 [facility] Comment on above: Performed By: #### L 100.0100, L500.2500 ####[facility] [address] [place], [address] ECRCL 71.49 ml/min Normal 50-250 [facility] Comment on above: Performed By: #### L 100.0100, L500.2500 ####[facility] [address] [place], [address] GAP 8 Normal 5-15 [facility] Comment on above: Performed By: #### L 100.0100, L500.2500 ####[facility] [address] [place], [address] GFR/1.73 sq M.predicted among non-blacks MDRD (S/P/Bld) [Vol rate/Area] 68 mL/min/{1.73_m2} Normal >60 [facility] Comment on above: Result Comment: mL/m in/1.73m2 CKD-EPI Creatinine Equation (2020) Performed By: #### L 100.0100, L500.2500 ####[facility] [address] [place], [address] Glucose [Mass/Vol] 251 mg/dL High 70-99 [facility] Comment on above: Performed By: #### L 100.0100, L500.2500 ####[facility] [address] [place], [address] Potassium [Moles/Vol] 4.4 mmol/L Normal 3.3-5.1 [facility] Comment on above: Performed By: #### L 100.0100, L500.2500 ####[facility] [address] [place], [address] Sodium [Moles/Vol] 136 mmol/L Normal 133-145 [facility] Comment on above: Performed By: #### L 100.0100, L500.2500 ####[facility] [address] [place], [address] Urea nitrogen [Mass/Vol] 18 mg/dL Normal 4-19 [facility] Comment on above: Performed By: #### L 100.0100, L500.2500 ####[facility] [address] [place], [address] Bedside Glucoseon 09-10-2024 FINGERSTICK GLU 241 mg/dL High 74-106 [facility] Comment on above: Result Comment: TALIA GEMENT OF PATIENT CARE PER NURSING PROTOCOL Performed By: #### L 501.080 ####[facility] [address] [place], [address] FINGERSTICK GLU 149 mg/dL High 74-106 [facility] Comment on above: Result Comment: TALIA GEMENT OF PATIENT CARE PER NURSING PROTOCOL Performed By: #### L 501.080 ####[facility] [address] [place], [address] FINGERSTICK GLU 250 mg/dL High 74-106 [facility] Comment on above: Result Comment: TALIA GEMENT OF PATIENT CARE PER NURSING PROTOCOL Performed By: #### L 501.080 ####[facility] [address] [place], [address] FINGERSTICK GLU 234 mg/dL High -[address] [place] [address] Comment on above: Result Comment: TALIA GEMENT OF PATIENT CARE PER NURSING PROTOCOL Performed By: #### L 501.080 ####[facility] [address] [place], [address] CBC W/Diff, Automatedon 04-0 9-2024 Absolute Lymph 1.84 X10 3/uL Normal 0.83-4.51 [facility] Comment on above: Performed By: #### L 100.0100, L500.2500 ####[facility] [address] [place], [address] Absolute Neut 7.2 X10 3/uL Normal 2.0-7.7 [facility] Comment on above: Performed By: #### L 100.0100, L500.2500 ####[facility] [address] [place], [address] Basophils/100 WBC (Bld) 0.6 % Normal 0-1 [facility] Comment on above: Performed By: #### L 100.0100, L500.2500 ####[facility] [address] [place], [address] Eosinophils/100 WBC (Bld) 1.6 % Normal 0-5 [facility] Comment on above: Performed By: #### L 100.0100, L500.2500 ####[facility] [address] [place], [address] Erythrocyte distribution width (RBC) [Ratio] 14.1 % Normal 11.6-14.6 [facility] Comment on above: Performed By: #### L 100.0100, L500.2500 ####[facility] [address] [place], [address] Hematocrit (Bld) [Volume fraction] 33.4 % Low 37-47 [facility] Comment on above: Performed By: #### L 100.0100, L500.2500 ####[facility] [address] [place], [address] Hemoglobin (Bld) [Mass/Vol] 11.0 g/dL Low 12.0-15.0 [facility] Comment on above: Performed By: #### L 100.0100, L500.2500 ####[facility] [address] [place], [address] IG% 0.500 Normal 0.0-0.9 [facility] Comment on above: Result Comment: IG% - Immature Granulocytes (promyelocytes, myelocytes andmetamyelocytes) > 1% indicates that a LEFT SHIFT is Present. Performed By: #### L 100.0100, L500.2500 ####[facility] [address] [place], [address] Lymphocytes/100 WBC (Bld) 18.5 % Low 19-41 [facility] Comment on above: Performed By: #### L 100.0100, L500.2500 ####[facility] [address] [place], [address] MCH (RBC) [Entitic mass] 27.9 pg Normal 27.0-32.0 [facility] Comment on above: Performed By: #### L 100.0100, L500.2500 ####[facility] [address] [place], [address] MCHC (RBC) [Mass/Vol] 32.9 g/dL Normal 32-36 [facility] Comment on above: Performed By: #### L 100.0100, L500.2500 ####[facility] [address] [place], [address] MCV (RBC) [Entitic vol] 84.8 fL Normal 81-99 [facility] Comment on above: Performed By: #### L 100.0100, L500.2500 ####[facility] [address] [place], [address] Monocytes/100 WBC (Bld) 6.0 % Normal 0-10 [facility] Comment on above: Performed By: #### L 100.0100, L500.2500 ####[facility] [address] [place], [address] Neutrophils/100 WBC (Bld) 72.8 % High 47-70 [facility] Comment on above: Performed By: #### L 100.0100, L500.2500 ####[facility] [address] [place], [address] Nucleated RBC (Bld) [#/Vol] 0 10*3/uL Normal 0-5 [facility] Comment on above: Performed By: #### L 100.0100, L500.2500 ####[facility] [address] [place], [address] Platelet mean volume (Bld) [Entitic vol] 9.9 fL Normal 6.2-12.0 [facility] Comment on above: Performed By: #### L 100.0100, L500.2500 ####[facility] [address] [place], [address] Platelets (Bld) [#/Vol] 245 10*3/uL Normal 150-450 [facility] Comment on above: Performed By: #### L 100.0100, L500.2500 ####[facility] [address] [place], [address] RBC (Bld) [#/Vol] 3.94 10*6/uL Low 4.2-5.4 [facility] Comment on above: Performed By: #### L 100.0100, L500.2500 ####[facility] [address] [place], [address] RDW SD 43.5 fl Normal 35.1-43.9 [facility] Comment on above: Performed By: #### L 100.0100, L500.2500 ####[facility] [address] [place], [address] WBC (Bld) [#/Vol] 10.0 10*3/uL Normal 4.4-11.0 [facility] Comment on above: Performed By: #### L 100.0100, L500.2500 ####[facility] [address] [place], [address] Basic Metabolic Profile (BMP )on 09-09-2024 BUN/CRE 14.8 RATIO Normal 10-20 [facility] Comment on above: Performed By: #### L 500.2500, L100.0100, L501.5200 ####[facility] [address] [place], [address] Calcium [Mass/Vol] 8.5 mg/dL Normal 7.6-11.0 [facility] Comment on above: Performed By: #### L 500.2500, L100.0100, L501.5200 ####[facility] [address] [place], [address] Chloride [Moles/Vol] 104 mmol/L Normal 98-108 [facility] Comment on above: Performed By: #### L 500.2500, L100.0100, L501.5200 ####[facility] [address] [place], [address] CO2 [Moles/Vol] 16.0 mmol/L Low 21.0-32.0 [facility] Comment on above: Performed By: #### L 500.2500, L100.0100, L501.5200 ####[facility] [address] [place], [address] Creatinine [Mass/Vol] 0.99 mg/dL Normal 0.70-1.20 [facility] Comment on above: Performed By: #### L 500.2500, L100.0100, L501.5200 ####[facility] [address] [place], [address] ECRCL 72.12 ml/min Normal 50-250 [facility] Comment on above: Performed By: #### L 500.2500, L100.0100, L501.5200 ####[facility] [address] [place], [address] GAP 13 Normal 5-15 [facility] Comment on above: Performed By: #### L 500.2500, L100.0100, L501.5200 ####[facility] [address] [place], [address] GFR/1.73 sq M.predicted among non-blacks MDRD (S/P/Bld) [Vol rate/Area] 68 mL/min/{1.73_m2} Normal >60 [facility] Comment on above: Result Comment: mL/m in/1.73m2 CKD-EPI Creatinine Equation (2020) Performed By: #### L 500.2500, L100.0100, L501.5200 ####[facility] [address] [place], [address] Glucose [Mass/Vol] 156 mg/dL High 70-99 [facility] Comment on above: Performed By: #### L 500.2500, L100.0100, L501.5200 ####[facility] [address] [place], [address] Potassium [Moles/Vol] 3.7 mmol/L Normal 3.3-5.1 [facility] Comment on above: Performed By: #### L 500.2500, L100.0100, L501.5200 ####[facility] [address] [place], [address] Sodium [Moles/Vol] 132 mmol/L Low 133-145 [facility] Comment on above: Performed By: #### L 500.2500, L100.0100, L501.5200 ####[facility] [address] [place], [address] Urea nitrogen [Mass/Vol] 15 mg/dL Normal 4-19 [facility] Comment on above: Performed By: #### L 500.2500, L100.0100, L501.5200 ####[facility] [address] [place], [address] Bedside Glucoseon 09-09-2024 FINGERSTICK GLU 193 mg/dL High 74-106 [facility] Comment on above: Result Comment: TALIA GEMENT OF PATIENT CARE PER NURSING PROTOCOL Performed By: #### L 501.080 ####[facility] [address] [place], [address] FINGERSTICK GLU 227 mg/dL High 74-106 [facility] Comment on above: Result Comment: TALIA GEMENT OF PATIENT CARE PER NURSING PROTOCOL Performed By: #### L 501.080 ####[facility] [address] [place], [address] FINGERSTICK GLU 228 mg/dL High 74-106 [facility] Comment on above: Result Comment: TALIA GEMENT OF PATIENT CARE PER NURSING PROTOCOL Performed By: #### L 501.080 ####[facility] [address] [place], [address] FINGERSTICK GLU 194 mg/dL High 74-106 [facility] Comment on above: Result Comment: TALIA GEMENT OF PATIENT CARE PER NURSING PROTOCOL Performed By: #### L 501.080 ####[facility] [address] [place], [address] CBC W/Diff, Automatedon 04-0 8-2024 Absolute Lymph 2.64 X10 3/uL Normal 0.83-4.51 [facility] Comment on above: Performed By: #### L 500.2500, L100.0100, L501.5200 ####[facility] [address] [place], [address] Absolute Neut 7.4 X10 3/uL Normal 2.0-7.7 [facility] Comment on above: Performed By: #### L 500.2500, L100.0100, L501.5200 ####[facility] [address] [place], [address] Basophils/100 WBC (Bld) 0.7 % Normal 0-1 [facility] Comment on above: Performed By: #### L 500.2500, L100.0100, L501.5200 ####[facility] [address] [place], [address] Eosinophils/100 WBC (Bld) 2.3 % Normal 0-5 [facility] Comment on above: Performed By: #### L 500.2500, L100.0100, L501.5200 ####[facility] [address] [place], [address] Erythrocyte distribution width (RBC) [Ratio] 14.0 % Normal 11.6-14.6 [facility] Comment on above: Performed By: #### L 500.2500, L100.0100, L501.5200 ####[facility] [address] [place], [address] Hematocrit (Bld) [Volume fraction] 32.6 % Low 37-47 [facility] Comment on above: Performed By: #### L 500.2500, L100.0100, L501.5200 ####[facility] [address] [place], [address] Hemoglobin (Bld) [Mass/Vol] 10.9 g/dL Low 12.0-15.0 [facility] Comment on above: Performed By: #### L 500.2500, L100.0100, L501.5200 ####[facility] [address] [place], [address] IG% 0.500 Normal 0.0-0.9 [facility] Comment on above: Result Comment: IG% - Immature Granulocytes (promyelocytes, myelocytes andmetamyelocytes) > 1% indicates that a LEFT SHIFT is Present. Performed By: #### L 500.2500, L100.0100, L501.5200 ####[facility] [address] [place], [address] Lymphocytes/100 WBC (Bld) 23.9 % Normal 19-41 [facility] Comment on above: Performed By: #### L 500.2500, L100.0100, L501.5200 ####[facility] [address] [place], [address] MCH (RBC) [Entitic mass] 28.5 pg Normal 27.0-32.0 [facility] Comment on above: Performed By: #### L 500.2500, L100.0100, L501.5200 ####[facility] [address] [place], [address] MCHC (RBC) [Mass/Vol] 33.4 g/dL Normal 32-36 [facility] Comment on above: Performed By: #### L 500.2500, L100.0100, L501.5200 ####[facility] [address] [place], [address] MCV (RBC) [Entitic vol] 85.1 fL Normal 81-99 [facility] Comment on above: Performed By: #### L 500.2500, L100.0100, L501.5200 ####[facility] [address] [place], [address] Monocytes/100 WBC (Bld) 5.5 % Normal 0-10 [facility] Comment on above: Performed By: #### L 500.2500, L100.0100, L501.5200 ####[facility] [address] [place], [address] Neutrophils/100 WBC (Bld) 67.1 % Normal 47-70 [facility] Comment on above: Performed By: #### L 500.2500, L100.0100, L501.5200 ####[facility] [address] [place], [address] Nucleated RBC (Bld) [#/Vol] 0 10*3/uL Normal 0-5 [facility] Comment on above: Performed By: #### L 500.2500, L100.0100, L501.5200 ####[facility] [address] [place], [address] Platelet mean volume (Bld) [Entitic vol] 9.6 fL Normal 6.2-12.0 [facility] Comment on above: Performed By: #### L 500.2500, L100.0100, L501.5200 ####[facility] [address] [place], [address] Platelets (Bld) [#/Vol] 247 10*3/uL Normal 150-450 [facility] Comment on above: Performed By: #### L 500.2500, L100.0100, L501.5200 ####[facility] [address] [place], [address] RBC (Bld) [#/Vol] 3.83 10*6/uL Low 4.2-5.4 [facility] Comment on above: Performed By: #### L 500.2500, L100.0100, L501.5200 ####[facility] [address] [place], [address] RDW SD 43.3 fl Normal 35.1-43.9 [facility] Comment on above: Performed By: #### L 500.2500, L100.0100, L501.5200 ####[facility] [address] [place], [address] WBC (Bld) [#/Vol] 11.0 10*3/uL Normal 4.4-11.0 [facility] Comment on above: Performed By: #### L 500.2500, L100.0100, L501.5200 ####[facility] [address] [place], [address] Magnesiumon 09-09-2024 Magnesium [Mass/Vol] 2.9 mg/dL High 1.5-2.2 [facility] Comment on above: Performed By: #### L 500.2500, L100.0100, L501.5200 ####[facility] [address] [place], [address] Magnesium (Unsp spec) [Mass/ Vol]Ordered By: Brenda Posadas on 09-09-2024 Magnesium measurement (mass/volume) 2.9 mg/dL High 1.5-2.2 [facility] Magnesium measurement (mass/ volume)Ordered By: Brenda Posadas on 09-09-2024 Magnesium (Unsp spec) [Mass/Vol] 2.9 mg/dL High 1.5-2.2 [facility] Phosphoruson 09-09-2024 Phosphate [Mass/Vol] 3.2 mg/dL Normal 2.7-4.5 [facility] Comment on above: Performed By: #### L 501.2300 ####[facility] [address] [place], [address] Serum phosphorus measurement Ordered By: Brenda Posadas on 09-09-2024 Serum phosphorus measurement 3.2 mg/dL 2.7-4.5 [facility] Urinalysis, Completeon 09-09 BACTERIA 1+ /hpf Normal None Seen [facility] Comment on above: Order Comment: CLEAN CATCH Performed By: #### L 400.0001 ####[facility] [address] [place], [address] WBC 0-5 SEEN Normal 0-5 [facility] Comment on above: Order Comment: CLEAN CATCH Performed By: #### L 400.0001 ####[facility] [address] [place], [address] EPI,SQUAMOUS 0 SEEN Normal 5-10 [facility] Comment on above: Order Comment: CLEAN CATCH Performed By: #### L 400.0001 ####[facility] [address] [place], [address] Mucus Ql (Urine sed) 0 SEEN Normal [facility] Comment on above: Order Comment: CLEAN CATCH Performed By: #### L 400.0001 ####[facility] [address] [place], [address] RBC 0 SEEN Normal 0-5 [facility] Comment on above: Order Comment: CLEAN CATCH Performed By: #### L 400.0001 ####[facility] [address] [place], [address] Urine cultureOrdered By: [place] Posadas on 09-09-2024 Bacteria identified Cx Nom (U) Presumptive E. coli Abnormal [facility] Urine culture Presumptive E. coli Abnormal [facility] 1,25-dihydroxyvitamin D3 [Ma ss/Vol]Ordered By: Rosaura Rosa Maria on 09-08-2024 Serum or plasma calcitriol measurement (mass/volume) 29.9 pg/mL 24.8-81.5 [facility] ALP [Catalytic activity/Vol] Ordered By: [facility] Rosa Maria on 09-08-2024 Serum or plasma alkaline phosphatase measurement 105 U/L High 35-104 [facility] ALT [Catalytic activity/Vol] Ordered By: Rosaura Rosa Maria on 09-08-2024 Serum or plasma alanine aminotransferase (ALT) measurement 14 U/L <35 [facility] Albumin [Mass/Vol]Ordered By : [facility] on 09-08-2024 Serum or plasma albumin measurement (mass/volume) 3.1 g/dL Low 3.5-5.0 [facility] Albumin/Globulin [Mass ratio ]Ordered By: [facility] Rosa Maria on 09-08-2024 Serum or plasma albumin/globulin mass ratio 1.2 RATIO 0.9-2.4 [facility] Basic Metabolic Profile (BMP )on 09-08-2024 BUN/CRE 17.5 RATIO Normal 10-20 [facility] Comment on above: Performed By: #### L 500.2500 ####[facility] [address] [place], [address] Calcium [Mass/Vol] 9.2 mg/dL Normal 7.6-11.0 [facility] Comment on above: Performed By: #### L 500.2500 ####[facility] [address] [place], [address] Chloride [Moles/Vol] 100 mmol/L Normal 98-108 [facility] Comment on above: Performed By: #### L 500.2500 ####[facility] [address] [place], [address] CO2 [Moles/Vol] 21.1 mmol/L Normal 21.0-32.0 [facility] Comment on above: Performed By: #### L 500.2500 ####[facility] [address] [place], [address] Creatinine [Mass/Vol] 0.89 mg/dL Normal 0.70-1.20 [facility] Comment on above: Performed By: #### L 500.2500 ####[facility] [address] [place], [address] ECRCL 77.55 ml/min Normal 50-250 [facility] Comment on above: Performed By: #### L 500.2500 ####[facility] [address] [place], [address] GAP 13 Normal 5-15 [facility] Comment on above: Performed By: #### L 500.2500 ####[facility] [address] [place], [address] GFR/1.73 sq M.predicted among non-blacks MDRD (S/P/Bld) [Vol rate/Area] 78 mL/min/{1.73_m2} Normal >60 [facility] Comment on above: Result Comment: mL/m in/1.73m2 CKD-EPI Creatinine Equation (2020) Performed By: #### L 500.2500 ####[facility] [address] [place], [address] Glucose [Mass/Vol] 266 mg/dL High 70-99 [facility] Comment on above: Performed By: #### L 500.2500 ####[facility] [address] [place], [address] Potassium [Moles/Vol] 3.2 mmol/L Low 3.3-5.1 [facility] Comment on above: Performed By: #### L 500.2500 ####[facility] [address] [place], [address] Sodium [Moles/Vol] 134 mmol/L Normal 133-145 [facility] Comment on above: Performed By: #### L 500.2500 ####[facility] [address] [place], [address] Urea nitrogen [Mass/Vol] 16 mg/dL Normal 4-19 [facility] Comment on above: Performed By: #### L 500.2500 ####[facility] [address] [place], [address] Bedside Glucoseon 09-08-2024 FINGERSTICK GLU 245 mg/dL High 74-106 [facility] Comment on above: Result Comment: TALIA GEMENT OF PATIENT CARE PER NURSING PROTOCOL Performed By: #### L 501.080 ####[facility] [address] [place], [address] FINGERSTICK GLU 245 mg/dL High 74-106 [facility] Comment on above: Result Comment: TALIA GEMENT OF PATIENT CARE PER NURSING PROTOCOL Performed By: #### L 501.080 ####[facility] [address] [place], [address] FINGERSTICK GLU 418 mg/dL High 74-106 [facility] Comment on above: Result Comment: TALIA GEMENT OF PATIENT CARE PER NURSING PROTOCOL Performed By: #### L 501.080 ####[facility] [address] [place], [address] FINGERSTICK GLU 211 mg/dL High 74-106 [facility] Comment on above: Result Comment: TALIA GEMENT OF PATIENT CARE PER NURSING PROTOCOL Performed By: #### L 501.080 ####[facility] [address] [place], [address] FINGERSTICK GLU 249 mg/dL High 74-106 [facility] Comment on above: Result Comment: TALIA GEMENT OF PATIENT CARE PER NURSING PROTOCOL Performed By: #### L 501.080 ####[facility] [address] [place], [address] FINGERSTICK GLU 205 mg/dL High 74-106 [facility] Comment on above: Result Comment: TALIA GEMENT OF PATIENT CARE PER NURSING PROTOCOL Performed By: #### L 501.080 ####[facility] [address] [place], [address] FINGERSTICK GLU 250 mg/dL High 74-106 [facility] Comment on above: Result Comment: TALIA CHAMBERS OF PATIENT CARE PER NURSING PROTOCOL Performed By: #### L 501.080 ####[facility] [address] [place], [address] Bilirubin, totalOrdered By: Rosaura Crane on 09-08-2024 Bilirubin [Mass/Vol] 0.65 mg/dL 0.00-1.30 [facility] Bilirubin, total 0.65 mg/dL 0.00-1.30 [facility] Blood cultureOrdered By: [place] Posadas on 09-08-2024 Bacteria identified Cx Nom (Bld) No growth in 5 days. [facility] Blood culture No growth in 5 days. [facility] Bacteria identified Cx Nom (Bld) No growth in 5 days. [facility] Blood culture No growth in 5 days. [facility] CBC W/Diff, Automatedon 04-0 Absolute Lymph 2.06 X10 3/uL Normal 0.83-4.51 [facility] Comment on above: Performed By: #### L 3300.0960, L501.9520, L506.1001, L100.0100, L500.4050, L509.1000 ####[facility] [address] [place], [address] Absolute Neut 5.2 X10 3/uL Normal 2.0-7.7 [facility] Comment on above: Performed By: #### L 3300.0960, L501.9520, L506.1001, L100.0100, L500.4050, L509.1000 ####[facility] [address] [place], [address] Basophils/100 WBC (Bld) 0.9 % Normal 0-1 [facility] Comment on above: Performed By: #### L 3300.0960, L501.9520, L506.1001, L100.0100, L500.4050, L509.1000 ####[facility] [address] [place], [address] Eosinophils/100 WBC (Bld) 2.4 % Normal 0-5 [facility] Comment on above: Performed By: #### L 3300.0960, L501.9520, L506.1001, L100.0100, L500.4050, L509.1000 ####[facility] [address] [place], [address] Erythrocyte distribution width (RBC) [Ratio] 13.5 % Normal 11.6-14.6 [facility] Comment on above: Performed By: #### L 3300.0960, L501.9520, L506.1001, L100.0100, L500.4050, L509.1000 ####[facility] [address] [place], [address] Hematocrit (Bld) [Volume fraction] 36.8 % Low 37-47 [facility] Comment on above: Performed By: #### L 3300.0960, L501.9520, L506.1001, L100.0100, L500.4050, L509.1000 ####[facility] [address] [place], [address] Hemoglobin (Bld) [Mass/Vol] 12.2 g/dL Normal 12.0-15.0 [facility] Comment on above: Performed By: #### L 3300.0960, L501.9520, L506.1001, L100.0100, L500.4050, L509.1000 ####[facility] [address] [place], [address] IG% 0.400 Normal 0.0-0.9 [facility] Comment on above: Result Comment: IG% - Immature Granulocytes (promyelocytes, myelocytes andmetamyelocytes) > 1% indicates that a LEFT SHIFT is Present. Performed By: #### L 3300.0960, L501.9520, L506.1001, L100.0100, L500.4050, L509.1000 ####[facility] [address] [place], [address] Lymphocytes/100 WBC (Bld) 25.7 % Normal 19-41 [facility] Comment on above: Performed By: #### L 3300.0960, L501.9520, L506.1001, L100.0100, L500.4050, L509.1000 ####[facility] [address] [place], [address] MCH (RBC) [Entitic mass] 27.6 pg Normal 27.0-32.0 [facility] Comment on above: Performed By: #### L 3300.0960, L501.9520, L506.1001, L100.0100, L500.4050, L509.1000 ####[facility] [address] [place], [address] MCHC (RBC) [Mass/Vol] 33.2 g/dL Normal 32-36 [facility] Comment on above: Performed By: #### L 3300.0960, L501.9520, L506.1001, L100.0100, L500.4050, L509.1000 ####[facility] [address] [place], [address] MCV (RBC) [Entitic vol] 83.3 fL Normal 81-99 [facility] Comment on above: Performed By: #### L 3300.0960, L501.9520, L506.1001, L100.0100, L500.4050, L509.1000 ####[facility] [address] [place], [address] Monocytes/100 WBC (Bld) 6.0 % Normal 0-10 [facility] Comment on above: Performed By: #### L 3300.0960, L501.9520, L506.1001, L100.0100, L500.4050, L509.1000 ####[facility] [address] [place], [address] Neutrophils/100 WBC (Bld) 64.6 % Normal 47-70 [facility] Comment on above: Performed By: #### L 3300.0960, L501.9520, L506.1001, L100.0100, L500.4050, L509.1000 ####[facility] [address] [place], [address] Nucleated RBC (Bld) [#/Vol] 0 10*3/uL Normal 0-5 [facility] Comment on above: Performed By: #### L 3300.0960, L501.9520, L506.1001, L100.0100, L500.4050, L509.1000 ####[facility] [address] [place], [address] Platelet mean volume (Bld) [Entitic vol] 9.5 fL Normal 6.2-12.0 [facility] Comment on above: Performed By: #### L 3300.0960, L501.9520, L506.1001, L100.0100, L500.4050, L509.1000 ####[facility] [address] [place], [address] Platelets (Bld) [#/Vol] 275 10*3/uL Normal 150-450 [facility] Comment on above: Performed By: #### L 3300.0960, L501.9520, L506.1001, L100.0100, L500.4050, L509.1000 ####[facility] [address] [place], [address] RBC (Bld) [#/Vol] 4.42 10*6/uL Normal 4.2-5.4 [facility] Comment on above: Performed By: #### L 3300.0960, L501.9520, L506.1001, L100.0100, L500.4050, L509.1000 ####[facility] [address] [place], [address] RDW SD 40.7 fl Normal 35.1-43.9 [facility] Comment on above: Performed By: #### L 3300.0960, L501.9520, L506.1001, L100.0100, L500.4050, L509.1000 ####[facility] [address] [place], [address] WBC (Bld) [#/Vol] 8.0 10*3/uL Normal 4.4-11.0 [facility] Comment on above: Performed By: #### L 3300.0960, L501.9520, L506.1001, L100.0100, L500.4050, L509.1000 ####[facility] [address] [place], [address] CDIFF (PCR)on 09-08-2024 CDIFF Pending 027 027 NAP1-B1 Presumptive Negative *for epidemiolologic???use C. Diff PCR Negative- No toxigenic C. Diff Detected Normal [facility] Comment on above: Performed By: #### M 100.637, M100.6796 ####[facility] [address] [place], [address] Calcium ionizedOrdered By: Keerthi Posadas on 09-08-2024 Calcium ionized 1.25 mmol/L 1.09-1.30 [facility] Clostridium difficile detect ion by polymerase chain reactionOrdered By: Rosaura Crane on 09-08-2024 C. difficile DNA CRISSY+probe Ql (Unsp spec) [facility] Comprehensive Metabolic Prof osirison 09-08-2024 Albumin [Mass/Vol] 3.1 g/dL Low 3.5-5.0 [facility] Comment on above: Performed By: #### L 3300.0960, L501.9520, L506.1001, L100.0100, L500.4050, L509.1000 ####[facility] [address] [place], [address] Albumin/Globulin [Mass ratio] 1.2 {ratio} Normal 0.9-2.4 [facility] Comment on above: Performed By: #### L 3300.0960, L501.9520, L506.1001, L100.0100, L500.4050, L509.1000 ####[facility] [address] [place], [address] ALK PHOS 105 U/L High 35-104 [facility] Comment on above: Performed By: #### L 3300.0960, L501.9520, L506.1001, L100.0100, L500.4050, L509.1000 ####[facility] [address] [place], [address] ALT [Catalytic activity/Vol] 14 U/L Normal <=34 [facility] Comment on above: Performed By: #### L 3300.0960, L501.9520, L506.1001, L100.0100, L500.4050, L509.1000 ####[facility] [address] [place], [address] AST [Catalytic activity/Vol] 23 U/L Normal <=31 [facility] Comment on above: Performed By: #### L 3300.0960, L501.9520, L506.1001, L100.0100, L500.4050, L509.1000 ####[facility] [address] [place], [address] Bilirubin [Mass/Vol] 0.65 mg/dL Normal 0.00-1.30 [facility] Comment on above: Performed By: #### L 3300.0960, L501.9520, L506.1001, L100.0100, L500.4050, L509.1000 ####[facility] [address] [place], [address] BUN/CRE 16.9 RATIO Normal 10-20 [facility] Comment on above: Performed By: #### L 3300.0960, L501.9520, L506.1001, L100.0100, L500.4050, L509.1000 ####[facility] [address] [place], [address] Calcium [Mass/Vol] 8.8 mg/dL Normal 7.6-11.0 [facility] Comment on above: Performed By: #### L 3300.0960, L501.9520, L506.1001, L100.0100, L500.4050, L509.1000 ####[facility] [address] [place], [address] Chloride [Moles/Vol] 105 mmol/L Normal 98-108 [facility] Comment on above: Performed By: #### L 3300.0960, L501.9520, L506.1001, L100.0100, L500.4050, L509.1000 ####[facility] [address] [place], [address] CO2 [Moles/Vol] 20.3 mmol/L Low 21.0-32.0 [facility] Comment on above: Performed By: #### L 3300.0960, L501.9520, L506.1001, L100.0100, L500.4050, L509.1000 ####[facility] [address] [place], [address] Creatinine [Mass/Vol] 0.88 mg/dL Normal 0.70-1.20 [facility] Comment on above: Performed By: #### L 3300.0960, L501.9520, L506.1001, L100.0100, L500.4050, L509.1000 ####[facility] [address] [place], [address] ECRCL 78.43 ml/min Normal 50-250 [facility] Comment on above: Performed By: #### L 3300.0960, L501.9520, L506.1001, L100.0100, L500.4050, L509.1000 ####[facility] [address] [place], [address] GAP 11 Normal 5-15 [facility] Comment on above: Performed By: #### L 3300.0960, L501.9520, L506.1001, L100.0100, L500.4050, L509.1000 ####[facility] [address] [place], [address] GFR/1.73 sq M.predicted among non-blacks MDRD (S/P/Bld) [Vol rate/Area] 78 mL/min/{1.73_m2} Normal >60 [facility] Comment on above: Result Comment: mL/m in/1.73m2 CKD-EPI Creatinine Equation (2020) Performed By: #### L 3300.0960, L501.9520, L506.1001, L100.0100, L500.4050, L509.1000 ####[facility] [address] [place], [address] Globulin (S) [Mass/Vol] 2.7 g/dL Normal 2.2-4.2 [facility] Comment on above: Performed By: #### L 3300.0960, L501.9520, L506.1001, L100.0100, L500.4050, L509.1000 ####[facility] [address] [place], [address] Glucose [Mass/Vol] 203 mg/dL High 70-99 [facility] Comment on above: Performed By: #### L 3300.0960, L501.9520, L506.1001, L100.0100, L500.4050, L509.1000 ####[facility] [address] [place], [address] Potassium [Moles/Vol] 3.1 mmol/L Low 3.3-5.1 [facility] Comment on above: Performed By: #### L 3300.0960, L501.9520, L506.1001, L100.0100, L500.4050, L509.1000 ####[facility] [address] [place], [address] Sodium [Moles/Vol] 136 mmol/L Normal 133-145 [facility] Comment on above: Performed By: #### L 3300.0960, L501.9520, L506.1001, L100.0100, L500.4050, L509.1000 ####[facility] [address] [place], [address] T PROT 5.9 g/dL Normal 5.9-8.4 [facility] Comment on above: Performed By: #### L 3300.0960, L501.9520, L506.1001, L100.0100, L500.4050, L509.1000 ####[facility] [address] [place], [address] Urea nitrogen [Mass/Vol] 15 mg/dL Normal 4-19 [facility] Comment on above: Performed By: #### L 3300.0960, L501.9520, L506.1001, L100.0100, L500.4050, L509.1000 ####[facility] [address] [place], [address] ENTERIC PATHOGEN PANEL STOOL on 09-08-2024 EP PANEL CAMPYLOBACTER Not Detected Norovirus Not Detected Rotavirus Not Detected Salmonella Not Detected Shiga Toxin Not Detected Shigella sp. Not Detected VIBRIO Not Detected Yersinia Not Detected Normal [facility] Comment on above: Performed By: #### M 100.637, M100.6796 ####[facility] [address] [place], [place], [address] Electrocardiogram reportOrde red By: Alli Brito on 09-08-2024 EKG study [facility] Work Phone: [phone] 09-08-2024 Ionized Calcium 1.08 mmol/L Low 1.09-1.30 [facility] Comment on above: Performed By: #### L 501.2276 ####[facility] [address] [place], [place], [address] Ionized Calcium 1.25 mmol/L Normal 1.09-1.30 [facility] Comment on above: Performed By: #### L 501.2276 ####[facility] [address] [place], [address] L509.7001on 09-08-2024 Procalcitonin 0.14 ng/mL High <=0.10 [facility] Comment on above: Result Comment: Inte rpretation:<0.10-0.25 ng/mL: Antibiotic therapy discouraged. Bacterialinfection unlikely.0.25-0.50 ng/mL: Antibiotic therapy encouraged. Bacterialinfection possible.>0.50 ng/mL: Antibiotic therapy strongly encouraged.Suggestive of presence of bacterial infection.PCT should always be interpreted in the clinical context ofthe patient. Therefore, clinicians should use the PCTresults in conjunction with other laboratory findings andclinical signs of the patient. Performed By: #### L 509.7001 ####[facility] [address] [place], [address] No Panel InformationOrdered By: Rosaura Crane on 09-08-2024 23 U/L <32 [facility] PTH intactOrdered By: Rosaura Crane on 09-08-2024 PTH intact 28 pg/mL [facility] PTHINon 09-08-2024 PTH 28 pg/mL Normal [facility] Comment on above: Performed By: #### L 3300.0960, L501.9520, L506.1001, L100.0100, L500.4050, L509.1000 ####[facility] [address] [place], [place], [address] Serum globulin measurementOr dered By: Rosaura Crane on 09-08-2024 Globulin (S) [Mass/Vol] 2.7 g/dL 2.2-4.2 [facility] Serum globulin measurement 2.7 g/dL 2.2-4.2 [facility] Serum or plasma alanine hamilton otransferase (ALT) measurementOrdered By: Rosaura Crane 09-08-2024 ALT [Catalytic activity/Vol] 14 U/L <35 [facility] Serum or plasma albumin xiomara urement (mass/volume)Ordered By: Rosaura Crane 09-08-2024 Albumin [Mass/Vol] 3.1 g/dL Low 3.5-5.0 [facility] Serum or plasma albumin/glob ulin mass ratioOrdered By: Rosaura Rosa Maria 09-08-2024 Albumin/Globulin [Mass ratio] 1.2 {ratio} 0.9-2.4 [facility] Serum or plasma alkaline sabiha sphatase measurementOrdered By: Rosaura Crane 09-08-2024 ALP [Catalytic activity/Vol] 105 U/L High 35-104 [facility] Serum or plasma calcitriol m easurement (mass/volume)Ordered By: Rosaura Crane 09-08-2024 1,25-dihydroxyvitamin D3 [Mass/Vol] 29.9 pg/mL 24.8-81.5 [facility] TSH DL <= 0.005 mIU/L QnOrde red By: Rosaura Crane on 09-08-2024 TSH Qn 2.460 uIU/mL 0.300-4.20 0 [facility] Serum or plasma thyroid stimulating hormone (TSH) measurement by high sensitivity met 2.460 uIU/mL 0.300-4.20 0 [facility] Thyroid Stim Hormone (TSH)on 09-08-2024 TSH 2.460 uIU/mL Normal 0.300-4.20 0 [facility] Comment on above: Performed By: #### L 3300.0960, L501.9520, L506.1001, L100.0100, L500.4050, L509.1000 ####[facility] [address] [place], [address] Total proteinOrdered By: Castro Crane on 09-08-2024 Protein [Mass/Vol] 5.9 g/dL 5.9-8.4 [facility] Total protein 5.9 g/dL 5.9-8.4 [facility] Vitamin D, 25-hydroxyOrdered By: Rosaura Crane on 09-08-2024 Vitamin D, 25-hydroxy 14.3 ng/mL Low 30-100 [facility] Vitamin D,25 Hydroxyon 09-08 Vitamin D 25-OH 14.3 ng/mL Low 30-100 [facility] Comment on above: Result Comment: Charissa min D StatusDeficiency: <20 ng/mL (50nmol/L)Insufficiency: 20-30 ng/mL (50-75 nmol/L)Sufficiency: 30-100 ng/mL (75-250 nmol/L)Toxicity: >100 ng/mL (>250 nmol/L) Performed By: #### L 3300.0960, L501.9520, L506.1001, L100.0100, L500.4050, L509.1000 ####[facility] [address] [place], [address] 12 Lead EKGon 09-07-2024 12 Lead EKG Normal [facility] ALP [Catalytic activity/Vol] Ordered By: Davis Ibarra on 09-07-2024 Serum or plasma alkaline phosphatase measurement 85 U/L 35-104 [facility] ALT [Catalytic activity/Vol] Ordered By: Davis Ibarra on 09-07-2024 Serum or plasma alanine aminotransferase (ALT) measurement 11 U/L <35 [facility] Abdomen/Pelvis W IV Cont ONL Yon 09-07-2024 Abdomen/Pelvis W IV Cont ONLY Normal [facility] Absolute neutrophil countOrd ered By: Davis Ibarra on 09-07-2024 Absolute neutrophil count 6.6 X10^3/uL 2.0-7.7 [facility] Albumin [Mass/Vol]Ordered By : Davis Ibarra on 09-07-2024 Serum or plasma albumin measurement (mass/volume) 2.6 g/dL Low 3.5-5.0 [facility] Albumin/Globulin [Mass ratio ]Ordered By: Davis Ibarra on 09-07-2024 Serum or plasma albumin/globulin mass ratio 1.3 RATIO 0.9-2.4 [facility] Anion gap [Moles/Vol]Ordered By: Davis Ibarra on 09-07-2024 Anion gap in Serum or Plasma 9 5-15 [facility] BUN/creatinine ratioOrdered By: Davis Ibarra on 09-07-2024 BUN/creatinine ratio 18.5 RATIO 10-20 [facility] Basophil percentageOrdered B y: Davis Ibarra on 09-07-2024 Basophil percentage 0.5 % 0-1 [facility] Bilirubin, totalOrdered By: Davis Ibarra on 09-07-2024 Bilirubin, total 0.40 mg/dL 0.00-1.30 [facility] CBC W/Diff, Automatedon Absolute Lymph 1.22 X10 3/uL Normal 0.83-4.51 [facility] Comment on above: Order Comment: REUBEN No. PREVIOUS SPECIMEN REJECTED DUE TOPOSSIBLE CONTAMINATION. 09/07/241742 Eileen Mauricio. Performed By: #### L 501.2450, L100.0100, L500.4050 ####[facility] [address] [place], [place], [address] Absolute Neut 6.6 X10 3/uL Normal 2.0-7.7 [facility] Comment on above: Order Comment: REUBEN W. PREVIOUS SPECIMEN REJECTED DUE TOPOSSIBLE CONTAMINATION. 09/07/241742 Eileen Mauricio. Performed By: #### L 501.2450, L100.0100, L500.4050 ####[facility] [address] [place], [address] Basophils/100 WBC (Bld) 0.5 % Normal 0-1 [facility] Comment on above: Order Comment: REDRA W. PREVIOUS SPECIMEN REJECTED DUE TOPOSSIBLE CONTAMINATION. 09/07/241742 Eileen Mauricio. Performed By: #### L 501.2450, L100.0100, L500.4050 ####[facility] [address] [place], [address] Eosinophils/100 WBC (Bld) 1.7 % Normal 0-5 [facility] Comment on above: Order Comment: REDRA W. PREVIOUS SPECIMEN REJECTED DUE TOPOSSIBLE CONTAMINATION. 09/07/241742 Eileen Mauricio. Performed By: #### L 501.2450, L100.0100, L500.4050 ####[facility] [address] [place], [address] Erythrocyte distribution width (RBC) [Ratio] 13.3 % Normal 11.6-14.6 [facility] Comment on above: Order Comment: REDRA W. PREVIOUS SPECIMEN REJECTED DUE TOPOSSIBLE CONTAMINATION. 09/07/241742 Eileen Mauricio. Performed By: #### L 501.2450, L100.0100, L500.4050 ####[facility] [address] [place], [address] Hematocrit (Bld) [Volume fraction] 31.8 % Low 37-47 [facility] Comment on above: Order Comment: REDRA W. PREVIOUS SPECIMEN REJECTED DUE TOPOSSIBLE CONTAMINATION. 09/07/241742 Eileen Mauricio. Performed By: #### L 501.2450, L100.0100, L500.4050 ####[facility] [address] [place], [address] Hemoglobin (Bld) [Mass/Vol] 10.8 g/dL Low 12.0-15.0 [facility] Comment on above: Order Comment: REDRA W. PREVIOUS SPECIMEN REJECTED DUE TOPOSSIBLE CONTAMINATION. 09/07/241742 Eileen Mauricio. Performed By: #### L 501.2450, L100.0100, L500.4050 ####[facility] [address] [place], [address] IG% 0.500 Normal 0.0-0.9 [facility] Comment on above: Order Comment: REDRA W. PREVIOUS SPECIMEN REJECTED DUE TOPOSSIBLE CONTAMINATION. 09/07/241742 Eileen Mauricio. Result Comment: IG% - Immature Granulocytes (promyelocytes, myelocytes andmetamyelocytes) > 1% indicates that a LEFT SHIFT is Present. Performed By: #### L 501.2450, L100.0100, L500.4050 ####[facility] [address] [place], [address] Lymphocytes/100 WBC (Bld) 14.5 % Low 19-41 [facility] Comment on above: Order Comment: REDRA W. PREVIOUS SPECIMEN REJECTED DUE TOPOSSIBLE CONTAMINATION. 09/07/241742 Eileen Mauricio. Performed By: #### L 501.2450, L100.0100, L500.4050 ####[facility] [address] [place], [address] MCH (RBC) [Entitic mass] 28.3 pg Normal 27.0-32.0 [facility] Comment on above: Order Comment: REDRA W. PREVIOUS SPECIMEN REJECTED DUE TOPOSSIBLE CONTAMINATION. 09/07/241742 Eileen Mauricio. Performed By: #### L 501.2450, L100.0100, L500.4050 ####[facility] [address] [place], [address] MCHC (RBC) [Mass/Vol] 34.0 g/dL Normal 32-36 [facility] Comment on above: Order Comment: REDRA W. PREVIOUS SPECIMEN REJECTED DUE TOPOSSIBLE CONTAMINATION. 09/07/241742 Eileen Mauricio. Performed By: #### L 501.2450, L100.0100, L500.4050 ####[facility] [address] [place], [address] MCV (RBC) [Entitic vol] 83.2 fL Normal 81-99 [facility] Comment on above: Order Comment: REDRA W. PREVIOUS SPECIMEN REJECTED DUE TOPOSSIBLE CONTAMINATION. 09/07/241742 Eileen Mauricio. Performed By: #### L 501.2450, L100.0100, L500.4050 ####[facility] [address] [place], [address] Monocytes/100 WBC (Bld) 5.0 % Normal 0-10 [facility] Comment on above: Order Comment: REDRA W. PREVIOUS SPECIMEN REJECTED DUE TOPOSSIBLE CONTAMINATION. 09/07/241742 Eileen Mauricio. Performed By: #### L 501.2450, L100.0100, L500.4050 ####[facility] [address] [place], [address] Neutrophils/100 WBC (Bld) 77.8 % High 47-70 [facility] Comment on above: Order Comment: REDRA W. PREVIOUS SPECIMEN REJECTED DUE TOPOSSIBLE CONTAMINATION. 09/07/241742 Eileen Mauricio. Performed By: #### L 501.2450, L100.0100, L500.4050 ####[facility] [address] [place], [address] Nucleated RBC (Bld) [#/Vol] 0 10*3/uL Normal 0-5 [facility] Comment on above: Order Comment: REDRA W. PREVIOUS SPECIMEN REJECTED DUE TOPOSSIBLE CONTAMINATION. 09/07/241742 Eileen Mauricio. Performed By: #### L 501.2450, L100.0100, L500.4050 ####[facility] [address] [place], [address] Platelet mean volume (Bld) [Entitic vol] 9.3 fL Normal 6.2-12.0 [facility] Comment on above: Order Comment: REDRA W. PREVIOUS SPECIMEN REJECTED DUE TOPOSSIBLE CONTAMINATION. 09/07/241742 Eileen Mauricio. Performed By: #### L 501.2450, L100.0100, L500.4050 ####[facility] [address] [place], [address] Platelets (Bld) [#/Vol] 235 10*3/uL Normal 150-450 [facility] Comment on above: Order Comment: REDRA W. PREVIOUS SPECIMEN REJECTED DUE TOPOSSIBLE CONTAMINATION. 09/07/241742 Eileen Mauricio. Performed By: #### L 501.2450, L100.0100, L500.4050 ####[facility] [address] [place], [address] RBC (Bld) [#/Vol] 3.82 10*6/uL Low 4.2-5.4 [facility] Comment on above: Order Comment: REDRA W. PREVIOUS SPECIMEN REJECTED DUE TOPOSSIBLE CONTAMINATION. 09/07/241742 Eileen Mauricio. Performed By: #### L 501.2450, L100.0100, L500.4050 ####[facility] [address] [place], [address] RDW SD 40.4 fl Normal 35.1-43.9 [facility] Comment on above: Order Comment: REDRA W. PREVIOUS SPECIMEN REJECTED DUE TOPOSSIBLE CONTAMINATION. 09/07/241742 Eileen Mauricio. Performed By: #### L 501.2450, L100.0100, L500.4050 ####[facility] [address] [place], [address] WBC (Bld) [#/Vol] 8.4 10*3/uL Normal 4.4-11.0 [facility] Comment on above: Order Comment: REDRA W. PREVIOUS SPECIMEN REJECTED DUE TOPOSSIBLE CONTAMINATION. 09/07/241742 Eileen Mauricio. Performed By: #### L 501.2450, L100.0100, L500.4050 ####[facility] [address] [place], [address] Hemoglobin (Bld) [Mass/Vol] 4.8 g/dL Invalid Interpretation Code 12.0-15.0 [facility] Comment on above: Result Comment: This specimen has been REJECTED due to Laboratory criteria:Contaminated/Leaked.EVANGELIST has been notified of need of recollection.09/07/241741 Eileen LozanoCRITICAL VALUE CALLED TO César RENO09/07/24 1717 Li Coronel.RESULTS READ BACK BY SAME. Performed By: #### L 100.0100, L501.2450, L500.4050 ####[facility] [address] [place], [address] Absolute Lymph 0.64 X10 3/uL Low 0.83-4.51 [facility] Comment on above: Result Comment: This specimen has been REJECTED due to Laboratory criteria:Contaminated/Leaked.EVANGELIST has been notified of need of recollection.09/07/241741 Eileen Mauricio Performed By: #### L 100.0100, L501.2450, L500.4050 ####[facility] [address] [place], [address] Absolute Neut 3.3 X10 3/uL Normal 2.0-7.7 [facility] Comment on above: Result Comment: This specimen has been REJECTED due to Laboratory criteria:Contaminated/Leaked.EVANGELIST has been notified of need of recollection.09/07/241741 Eileen Mauricio Performed By: #### L 100.0100, L501.2450, L500.4050 ####[facility] [address] [place], [address] BASO# 0.00 X10 3/uL Normal [facility] Comment on above: Result Comment: This specimen has been REJECTED due to Laboratory criteria:Contaminated/Leaked.EVANGELIST has been notified of need of recollection.09/07/241741 Eileen Mauricio Performed By: #### L 100.0100, L501.2450, L500.4050 ####[facility] [address] [place], [address] Basophils/100 WBC (Bld) 0.0 % Normal 0-1 [facility] Comment on above: Result Comment: This specimen has been REJECTED due to Laboratory criteria:Contaminated/Leaked.EVANGELIST has been notified of need of recollection.09/07/241741 Eileen Mauricio Performed By: #### L 100.0100, L501.2450, L500.4050 ####[facility] [address] [place], [address] EOS# 0.05 X10 3/uL Normal [facility] Comment on above: Result Comment: This specimen has been REJECTED due to Laboratory criteria:Contaminated/Leaked.EVANGELIST has been notified of need of recollection.09/07/241741 Eileen Mauricio Performed By: #### L 100.0100, L501.2450, L500.4050 ####[facility] [address] [place], [address] Eosinophils/100 WBC (Bld) 1.2 % Normal 0-5 [facility] Comment on above: Result Comment: This specimen has been REJECTED due to Laboratory criteria:Contaminated/Leaked.EVANGELIST has been notified of need of recollection.09/07/241741 Eileen Mauricio Performed By: #### L 100.0100, L501.2450, L500.4050 ####[facility] [address] [place], [address] Erythrocyte distribution width (RBC) [Ratio] 13.4 % Normal 11.6-14.6 [facility] Comment on above: Result Comment: This specimen has been REJECTED due to Laboratory criteria:Contaminated/Leaked.EVANGELIST has been notified of need of recollection.09/07/241741 Eileen Mauricio Performed By: #### L 100.0100, L501.2450, L500.4050 ####[facility] [address] [place], [address] Hematocrit (Bld) [Volume fraction] 14.7 % Low 37-47 [facility] Comment on above: Result Comment: This specimen has been REJECTED due to Laboratory criteria:Contaminated/Leaked.EVANGELIST has been notified of need of recollection.09/07/241741 Eileen Mauricio Performed By: #### L 100.0100, L501.2450, L500.4050 ####[facility] [address] [place], [address] IG# 0.030 X10 3/uL High 0.0-0.0 [facility] Comment on above: Result Comment: This specimen has been REJECTED due to Laboratory criteria:Contaminated/Leaked.EVANGELIST has been notified of need of recollection.09/07/241741 Eileen Mauricio Performed By: #### L 100.0100, L501.2450, L500.4050 ####[facility] [address] [facility] [place], [address] IG% 0.700 Normal 0.0-0.9 [facility] Comment on above: Result Comment: This specimen has been REJECTED due to Laboratory criteria:Contaminated/Leaked.EVANGELIST has been notified of need of recollection.09/07/241741 Eileen LozanoIG% - Immature Granulocytes (promyelocytes, myelocytes andmetamyelocytes) > 1% indicates that a LEFT SHIFT is Present. Performed By: #### L 100.0100, L501.2450, L500.4050 ####[facility] [address] [place], [address] LYMPH# 0.64 X10 3/ul Low 0.83-4.51 [facility] Comment on above: Result Comment: This specimen has been REJECTED due to Laboratory criteria:Contaminated/Leaked.EVANGELIST has been notified of need of recollection.09/07/241741 Eileen Mauricio Performed By: #### L 100.0100, L501.2450, L500.4050 ####[facility] [address] [place], [address] Lymphocytes/100 WBC (Bld) 15.2 % Low 19-41 [facility] Comment on above: Result Comment: This specimen has been REJECTED due to Laboratory criteria:Contaminated/Leaked.EVANGELIST has been notified of need of recollection.09/07/241741 Eileen Mauricio Performed By: #### L 100.0100, L501.2450, L500.4050 ####[facility] [address] [place], [address] MCH (RBC) [Entitic mass] 28.4 pg Normal 27.0-32.0 [facility] Comment on above: Result Comment: This specimen has been REJECTED due to Laboratory criteria:Contaminated/Leaked.EVANGELIST has been notified of need of recollection.09/07/241741 Eileen Mauricio Performed By: #### L 100.0100, L501.2450, L500.4050 ####[facility] [address] [place], [address] MCHC (RBC) [Mass/Vol] 32.7 g/dL Normal 32-36 [facility] Comment on above: Result Comment: This specimen has been REJECTED due to Laboratory criteria:Contaminated/Leaked.EVANGELIST has been notified of need of recollection.09/07/241741 Eileen Mauricio Performed By: #### L 100.0100, L501.2450, L500.4050 ####[facility] [address] [place], [address] MCV (RBC) [Entitic vol] 87.0 fL Normal 81-99 [facility] Comment on above: Result Comment: This specimen has been REJECTED due to Laboratory criteria:Contaminated/Leaked.EVANGELIST has been notified of need of recollection.09/07/241741 Eileen Mauricio Performed By: #### L 100.0100, L501.2450, L500.4050 ####[facility] [address] [place], [address] MONO # 0.24 X10 3/uL Normal [facility] Comment on above: Result Comment: This specimen has been REJECTED due to Laboratory criteria:Contaminated/Leaked.PEPPER has been notified of need of recollection.09/07/241741 Eileen Mauricio Performed By: #### L 100.0100, L501.2450, L500.4050 ####[facility] [address] [place], [address] Monocytes/100 WBC (Bld) 5.7 % Normal 0-10 [facility] Comment on above: Result Comment: This specimen has been REJECTED due to Laboratory criteria:Contaminated/Leaked.EVANGELIST has been notified of need of recollection.09/07/241741 Eileen Mauricio Performed By: #### L 100.0100, L501.2450, L500.4050 ####[facility] [address] [place], [address] Neutrophil # 3.26 X10 3/uL Normal 2.7-7.7 [facility] Comment on above: Result Comment: This specimen has been REJECTED due to Laboratory criteria:Contaminated/Leaked.EVANGELIST has been notified of need of recollection.09/07/241741 Eileen Mauricio Performed By: #### L 100.0100, L501.2450, L500.4050 ####[facility] [address] [place], [address] Neutrophils/100 WBC (Bld) 77.2 % High 47-70 [facility] Comment on above: Result Comment: This specimen has been REJECTED due to Laboratory criteria:Contaminated/Leaked.EVANGELIST has been notified of need of recollection.09/07/241741 Eileen Mauricio Performed By: #### L 100.0100, L501.2450, L500.4050 ####[facility] [address] [place], [address] Nucleated RBC (Bld) [#/Vol] 0 10*3/uL Normal 0-5 [facility] Comment on above: Result Comment: This specimen has been REJECTED due to Laboratory criteria:Contaminated/Leaked.EVANGELIST has been notified of need of recollection.09/07/241741 Eileen Mauricio Performed By: #### L 100.0100, L501.2450, L500.4050 ####[facility] [address] [place], [address] Platelet mean volume (Bld) [Entitic vol] 8.8 fL Normal 6.2-12.0 [facility] Comment on above: Result Comment: This specimen has been REJECTED due to Laboratory criteria:Contaminated/Leaked.EVANGELIST has been notified of need of recollection.09/07/241741 Eileen Mauricio Performed By: #### L 100.0100, L501.2450, L500.4050 ####[facility] [address] [place], [address] Platelets (Bld) [#/Vol] 102 10*3/uL Low 150-450 [facility] Comment on above: Result Comment: This specimen has been REJECTED due to Laboratory criteria:Contaminated/Leaked.EVANGELIST has been notified of need of recollection.09/07/241741 Eileen Mauricio Performed By: #### L 100.0100, L501.2450, L500.4050 ####[facility] [address] [place], [address] POSITIVE COUNT YES Abnormal [facility] Comment on above: Result Comment: This specimen has been REJECTED due to Laboratory criteria:Contaminated/Leaked.EVANGELIST has been notified of need of recollection.09/07/241741 Eileen Mauricio Performed By: #### L 100.0100, L501.2450, L500.4050 ####[facility] [address] [place], [address] RBC (Bld) [#/Vol] 1.69 10*6/uL Low 4.2-5.4 [facility] Comment on above: Result Comment: This specimen has been REJECTED due to Laboratory criteria:Contaminated/Leaked.EVANGELIST has been notified of need of recollection.09/07/241741 Eileen Mauricio Performed By: #### L 100.0100, L501.2450, L500.4050 ####[facility] [address] [place], [address] RDW SD 42.5 fl Normal 35.1-43.9 [facility] Comment on above: Result Comment: This specimen has been REJECTED due to Laboratory criteria:Contaminated/Leaked.EVANGELIST has been notified of need of recollection.09/07/241741 Eileen Mauricio Performed By: #### L 100.0100, L501.2450, L500.4050 ####[facility] [address] [place], [address] WBC (Bld) [#/Vol] 4.2 10*3/uL Low 4.4-11.0 [facility] Comment on above: Result Comment: This specimen has been REJECTED due to Laboratory criteria:Contaminated/Leaked.EVANGELIST has been notified of need of recollection.09/07/241741 Eileen Mauricio Performed By: #### L 100.0100, L501.2450, L500.4050 ####[facility] [address] [place], [address] Calcium [Mass/Vol]Ordered By : Davis Ibarra on 09-07-2024 Serum or plasma calcium measurement (mass/volume) 6.5 mg/dL Low 7.6-11.0 [facility] Carbon dioxide, total [Moles /volume] in Central venous bloodOrdered By: Davis Ibarra on 09-07-2024 Carbon dioxide, total [Moles/volume] in Central venous blood 18.5 mmol/L Low 21.0-32.0 [facility] Chloride assayOrdered By: Matt Ibarra on 09-07-2024 Chloride assay 108 mmol/L 98-108 [facility] Comprehensive Metabolic Prof ilon 09-07-2024 Potassium [Moles/Vol] 2.5 mmol/L Invalid Interpretation Code 3.3-5.1 [facility] Comment on above: Order Comment: REUBEN No. PREVIOUS SPECIMEN REJECTED DUE TOPOSSIBLE CONTAMINATION. 09/07/241742 Eileen Mauricio. Result Comment: Hemo lysis present, Results??could be affected.??Critical Result(s) Called at: by:??Results read back bysame.Hemolysis present, Results??could be affected.??Critical Result(s) Called at:1837 by:?? EILEEN JHAVERI. Results read back by same. AMENDED REPORT 09/07/241911 K previously reported as: 2.5 *L mmol/LHemolysis present, Results??could be affected.??Critical Result(s) Called at: by:??Results read back bysame. Performed By: #### L 501.2450, L100.0100, L500.4050 ####[facility] [address] [place], [address] ALB Normal 3.5-5.0 [facility] Comment on above: Result Comment: This specimen has been REJECTED due to Laboratory criteria:Contaminated/Leaked.EVANGELIST has been notified of need of recollection.09/07/241741 Eileen Mauricio Performed By: #### L 100.0100, L501.2450, L500.4050 ####[facility] [address] [place], [address] ALK PHOS Normal 35-104 [facility] Comment on above: Result Comment: This specimen has been REJECTED due to Laboratory criteria:Contaminated/Leaked.EVANGELIST has been notified of need of recollection.09/07/241741 Eileen Mauricio Performed By: #### L 100.0100, L501.2450, L500.4050 ####[facility] [address] [place], [address] ALT Normal <=34 [facility] Comment on above: Result Comment: This specimen has been REJECTED due to Laboratory criteria:Contaminated/Leaked.EVANGELIST has been notified of need of recollection.09/07/241741 Eileen Mauricio Performed By: #### L 100.0100, L501.2450, L500.4050 ####[facility] [address] [place], [address] AST Normal <=31 [facility] Comment on above: Result Comment: This specimen has been REJECTED due to Laboratory criteria:Contaminated/Leaked.EVANGELIST has been notified of need of recollection.09/07/241741 Eileen Mauricio Performed By: #### L 100.0100, L501.2450, L500.4050 ####[facility] [address] [place], [address] BUN Normal 4-19 [facility] Comment on above: Result Comment: This specimen has been REJECTED due to Laboratory criteria:Contaminated/Leaked.EVANGELIST has been notified of need of recollection.09/07/241741 Eileen Mauricio Performed By: #### L 100.0100, L501.2450, L500.4050 ####[facility] [address] [place], [address] BUN/CRE Normal 10-20 [facility] Comment on above: Result Comment: This specimen has been REJECTED due to Laboratory criteria:Contaminated/Leaked.EVANGELIST has been notified of need of recollection.09/07/241741 Eileen Mauricio Performed By: #### L 100.0100, L501.2450, L500.4050 ####[facility] [address] [place], [address] Calcium Normal 7.6-11.0 [facility] Comment on above: Result Comment: This specimen has been REJECTED due to Laboratory criteria:Contaminated/Leaked.EVANGELIST has been notified of need of recollection.09/07/241741 Eileen Mauricio Performed By: #### L 100.0100, L501.2450, L500.4050 ####[facility] [address] [place], [address] CL Normal 98-108 [facility] Comment on above: Result Comment: This specimen has been REJECTED due to Laboratory criteria:Contaminated/Leaked.EVANGELIST has been notified of need of recollection.09/07/241741 Eileen Mauricio Performed By: #### L 100.0100, L501.2450, L500.4050 ####[facility] [address] [place], [address] CO2 Normal 21.0-32.0 [facility] Comment on above: Result Comment: This specimen has been REJECTED due to Laboratory criteria:Contaminated/Leaked.EVANGELIST has been notified of need of recollection.09/07/241741 Eileen Mauricio Performed By: #### L 100.0100, L501.2450, L500.4050 ####[facility] [address] [place], [address] CREAT,SERUM Normal 0.70-1.20 [facility] Comment on above: Result Comment: This specimen has been REJECTED due to Laboratory criteria:Contaminated/Leaked.EVANGELIST has been notified of need of recollection.09/07/241741 Eileen Mauricio Performed By: #### L 100.0100, L501.2450, L500.4050 ####[facility] [address] [place], [address] eGFR Normal >60 [facility] Comment on above: Result Comment: This specimen has been REJECTED due to Laboratory criteria:Contaminated/Leaked.EVANGELIST has been notified of need of recollection.09/07/241741 Eileen Mauricio Performed By: #### L 100.0100, L501.2450, L500.4050 ####[facility] [address] [place], [address] GAP Normal 5-15 [facility] Comment on above: Result Comment: This specimen has been REJECTED due to Laboratory criteria:Contaminated/Leaked.EVANGELIST has been notified of need of recollection.09/07/241741 Eileen Mauricio Performed By: #### L 100.0100, L501.2450, L500.4050 ####[facility] [address] [place], [address] GLU Normal 70-99 [facility] Comment on above: Result Comment: This specimen has been REJECTED due to Laboratory criteria:Contaminated/Leaked.EVANGELIST has been notified of need of recollection.09/07/241741 Eileen Mauricio Performed By: #### L 100.0100, L501.2450, L500.4050 ####[facility] [address] [place], [address] Potassium Normal 3.3-5.1 [facility] Comment on above: Result Comment: This specimen has been REJECTED due to Laboratory criteria:Contaminated/Leaked.EVANGELIST has been notified of need of recollection.09/07/241741 Eileen Mauricio Performed By: #### L 100.0100, L501.2450, L500.4050 ####[facility] [address] [place], [address] T BILI Normal 0.00-1.30 [facility] Comment on above: Result Comment: This specimen has been REJECTED due to Laboratory criteria:Contaminated/Leaked.EVANGELIST has been notified of need of recollection.09/07/241741 Eileen Mauricio Performed By: #### L 100.0100, L501.2450, L500.4050 ####[facility] [address] [place], [address] T PROT Normal 5.9-8.4 [facility] Comment on above: Result Comment: This specimen has been REJECTED due to Laboratory criteria:Contaminated/Leaked.EVANGELIST has been notified of need of recollection.09/07/241741 Eileen Mauricio Performed By: #### L 100.0100, L501.2450, L500.4050 ####[facility] [address], [address] Comprehensive Metabolic Profil Normal 133-145 [facility] Comment on above: Result Comment: This specimen has been REJECTED due to Laboratory criteria:Contaminated/Leaked.PEPPER has been notified of need of recollection.09/07/24 1742 Eileen Mauricio Performed By: #### L 100.0100, L501.2450, L500.4050 ####[facility] [address] [place], [address] Creatinine [Mass/Vol]Ordered By: Davis Ibarra on 09-07-2024 Serum creatinine measurement (mass/volume) 0.92 mg/dL 0.70-1.20 [facility] Emergency Department Summary on 09-07-2024 Emergency Department Summary Normal [facility] Eosinophil percentageOrdered By: Davis Ibarra on 09-07-2024 Eosinophil percentage 1.7 % 0-5 [facility] Erythrocyte distribution wid th (RBC) [Ratio]Ordered By: Davis Ibarra on 09-07-2024 Erythrocyte distribution width ratio 13.3 % 11.6-14.6 [facility] Erythrocyte distribution width standard deviation 40.4 fl 35.1-43.9 [facility] Estimation of creatinine sylvain aranceOrdered By: Davis Ibarra on 09-07-2024 Estimation of creatinine clearance 76.05 ml/min 50-250 [facility] GFR/1.73 sq M.predicted estephanie g non-blacks MDRD (S/P/Bld) [Vol rate/Area]Ordered By: Davis Ibarra on 09-07-2024 Glomerular filtration rate (GFR) estimation/1.73 sq m using serum, plasma, or whole b 74 >60 [facility] Glucose [Mass/Vol]Ordered By : Davis Ibarra on 09-07-2024 Serum glucose measurement (mass/volume) 283 mg/dL High 70-99 [facility] H AND P Exam - Hospitaliston 09-07-2024 H&P Exam - Hospitalist Normal [facility] Hematocrit Auto (Bld) [Volum e fraction]Ordered By: Davis Ibarra on 09-07-2024 Automated blood hematocrit (percentage) 31.8 % Low 37-47 [facility] Hemoglobin measurementOrdere d By: Davis Ibarra on 09-07-2024 Hemoglobin measurement 10.8 g/dL Low 12.0-15.0 [facility] Immature granulocytes/100 WB C Auto (Bld)Ordered By: Davis Ibarra on 09-07-2024 Automated immature granulocyte percentage 0.500 % 0.0-0.9 [facility] Lipaseon 09-07-2024 Lipase [Catalytic activity/Vol] 28 U/L Normal 13-75 [facility] Comment on above: Order Comment: REUBEN Gomez PREVIOUS SPECIMEN REJECTED DUE TOPOSSIBLE CONTAMINATION. 09/07/241742 Eileen Mauricio. Result Comment: Gege edgar note:LIPASE revised reference range effective 22.New Lipase methodology. Expected to produce lower valuesthan the previous assay method.NEW Reference Range: 13 - 75 U/L Performed By: #### L 501.2450, L100.0100, L500.4050 ####[facility] [address] [place], [address] Lipase [Catalytic activity/Vol] 12 U/L Low 13-75 [facility] Comment on above: Order Comment: This specimen has been REJECTED due to Laboratory criteria:Contaminated/Leaked.EVANGELIST has been notified of need of recollection.09/07/241741 Eileen Mcguirezano Result Comment: This specimen has been REJECTED due to Laboratory criteria:Contaminated/Leaked.EVANGELIST has been notified of need of recollection.09/07/241741 Eileen LozanoPlease note:LIPASE revised reference range effective 22.New Lipase methodology. Expected to produce lower valuesthan the previous assay method.NEW Reference Range: 13 - 75 U/L Performed By: #### L 100.0100, L501.2450, L500.4050 ####[facility] [address] [place], [address] Lipase measurementOrdered By : Davis Ibarra on 09-07-2024 Lipase measurement 28 U/L 13-75 [facility] Lymphocytes Auto (Unsp spec) [#/Vol]Ordered By: Davis Ibarra on 09-07-2024 Absolute lymphocyte count 1.22 X10^3/uL 0.83-4.51 [facility] Lymphocytes/100 WBC Auto (Un sp spec)Ordered By: Davis Ibarra on 09-07-2024 Automated lymphocyte count as percentage of total leukocytes 14.5 % Low 19-41 [facility] MCV (RBC) [Entitic vol]Order ed By: Davis Ibarra on 09-07-2024 MCV (mean corpuscular volume) determination 83.2 fL 81-99 [facility] Magnesiumon 09-07-2024 Magnesium [Mass/Vol] 1.2 mg/dL Low 1.5-2.2 [facility] Comment on above: Performed By: #### L 501.5200 ####[facility] [address] [place], [address] Magnesium (Unsp spec) [Mass/ Vol]Ordered By: Davis Iabrra on 09-07-2024 Magnesium measurement (mass/volume) 1.2 mg/dL Low 1.5-2.2 [facility] Mean corpuscular hemoglobin (MCH) determinationOrdered By: Davis Ibarra on 09-07-2024 Mean corpuscular hemoglobin (MCH) determination 28.3 pg 27.0-32.0 [facility] Mean corpuscular hemoglobin concentration (MCHC) determinationOrdered By: Davis Ibarra on 09-07-2024 Mean corpuscular hemoglobin concentration (MCHC) determination 34.0 g/dL 32-36 [facility] Mean platelet volume determi nationOrdered By: Davis Ibarra on 09-07-2024 Mean platelet volume determination 9.3 fl 6.2-12.0 [facility] Monocyte percentageOrdered B y: Davis Ibarra on 09-07-2024 Monocyte percentage 5.0 % 0-10 [facility] Neutrophil percentageOrdered By: Davis Ibarra on 09-07-2024 Neutrophil percentage 77.8 % High 47-70 [facility] No Panel InformationOrdered By: Davis Ibarra on 09-07-2024 19 U/L <32 [facility] Nucleated red blood cell per centageOrdered By: Davis Ibarra on 09-07-2024 Nucleated red blood cell percentage 0 % 0-5 [facility] Phosphoruson 09-07-2024 Phosphate [Mass/Vol] 2.5 mg/dL Low 2.7-4.5 [facility] Comment on above: Performed By: #### L 501.2300 ####[facility] [address] [place], [address] Platelet countOrdered By: Matt Ibarra on 09-07-2024 Platelet count 235 K/mm3 150-450 [facility] Potassium (Unsp spec) [Mass/ Vol]Ordered By: Davis Ibarra on 09-07-2024 Potassium measurement (mass/volume) 2.5 mmol/L Low 3.3-5.1 [facility] Procalcitonin IA [Mass/Vol]O rdered By: Rosaura Crane on 09-07-2024 Procalcitonin [Mass/volume] in Serum or Plasma by Immunoassay 0.14 ng/mL High <0.11 [facility] Procalcitonin [Mass/volume] in Serum or Plasma by ImmunoassayOrdered By: Rosaura Crane on 09-07-2024 Procalcitonin IA [Mass/Vol] 0.14 ng/mL High <0.11 [facility] RBC Auto (Bld) [#/Vol]Ordere d By: Davis Ibarra on 09-07-2024 Automated blood erythrocyte count 3.82 M/mm3 Low 4.2-5.4 [facility] Serum globulin measurementOr dered By: Davis Ibarra on 09-07-2024 Serum globulin measurement 2.1 g/dL Low 2.2-4.2 [facility] Sodium levelOrdered By: Bhupendra Ibarra on 09-07-2024 Sodium level 136 mmol/L 133-145 [facility] Total proteinOrdered By: Latoya Ibarra on 09-07-2024 Total protein 4.7 g/dL Low 5.9-8.4 [facility] Type AND Screenon 09-07-2024 Ab SCREEN GEL Negative Normal [facility] Comment on above: Order Comment: A Performed By: #### B TS ####[facility] [address] [place], [address] Urea nitrogen [Mass/Vol]Orde red By: Davis Ibarra on 09-07-2024 Serum or plasma urea nitrogen measurement (mass/volume) 17 mg/dL 4- [facility] Urinalysis, Completeon 09-07 BACTERIA Normal None Seen [facility] Comment on above: Order Comment: UA CO MPLETED ON LEAN CATCH Result Comment: @COM PLETED ON 09/12 Performed By: #### L 400.0001 ####[facility] [address] [place], [address] BILIRUBIN URINE Normal Negative [facility] Comment on above: Order Comment: UA CO MPLETED ON LEAN CATCH Result Comment: @COM PLETED ON 09/12 Performed By: #### L 400.0001 ####[facility] [address] [place], [address] Clarity (U) Normal Clear [facility] Comment on above: Order Comment: UA CO MPLETED ON LEAN CATCH Result Comment: @COM PLETED ON 09/12 Performed By: #### L 400.0001 ####[facility] [address] [place], [address] Color (U) Normal Yellow [facility] Comment on above: Order Comment: UA CO MPLETED ON LEAN CATCH Result Comment: @COM PLETED ON 09/12 Performed By: #### L 400.0001 ####[facility] [address] [place], [address] EPI,SQUAMOUS Normal 5-10 [facility] Comment on above: Order Comment: UA CO MPLETED ON 11CLEAN CATCH Result Comment: @COM PLETED ON 09/12 Performed By: #### L 400.0001 ####[facility] [address] [place], [address] GLUCOSE, UR Normal Normal [facility] Comment on above: Order Comment: UA CO MPLETED ON LEAN CATCH Result Comment: @COM PLETED ON 09/12 Performed By: #### L 400.0001 ####[facility] [address] [place], [address] KETONE UR Normal Negative [facility] Comment on above: Order Comment: UA CO MPLETED ON LEAN CATCH Result Comment: @COM PLETED ON 09/12 Performed By: #### L 400.0001 ####[facility] [address] [place], [address] LEUK ESTERASE Normal Negative [facility] Comment on above: Order Comment: UA CO MPLETED ON LEAN CATCH Result Comment: @COM PLETED ON 09/12 Performed By: #### L 400.0001 ####[facility] [address] [place], [address] Mucus Ql (Urine sed) Normal [facility] Comment on above: Order Comment: UA CO MPLETED ON LEAN CATCH Result Comment: @COM PLETED ON 09/12 Performed By: #### L 400.0001 ####[facility] [address] [facility] [address] Nitrite Ql (U) Normal Negative [facility] Comment on above: Order Comment: UA CO MPLETED ON LEAN CATCH Result Comment: @COM PLETED ON 09/12 Performed By: #### L 400.0001 ####[facility] [address] [place], [address] OCCULT BLOOD-UR Normal Negative [facility] Comment on above: Order Comment: UA CO MPLETED ON LEAN CATCH Result Comment: @COM PLETED ON 09/12 Performed By: #### L 400.0001 ####[facility] [address] [place], [address] pH UR Normal 5.0 - 8.0 [facility] Comment on above: Order Comment: UA CO MPLETED ON LEAN CATCH Result Comment: @COM PLETED ON 09/12 Performed By: #### L 400.0001 ####[facility] [address] [place], [address] PROT DIPSTX Normal Negative [facility] Comment on above: Order Comment: UA CO MPLETED ON LEAN CATCH Result Comment: @COM PLETED ON 09/12 Performed By: #### L 400.0001 ####[facility] [address] [place], [address] RBC Normal 0-5 [facility] Comment on above: Order Comment: UA CO MPLETED ON LEAN CATCH Result Comment: @COM PLETED ON 09/12 Performed By: #### L 400.0001 ####[facility] [address] [place], [address] SP.GR. DIPSTX Normal 1.002-1.03 0 [facility] Comment on above: Order Comment: UA CO MPLETED ON LEAN CATCH Result Comment: @COM PLETED ON 09/12 Performed By: #### L 400.0001 ####[facility] [address] [place], [address] UR Preservative Normal [facility] Comment on above: Order Comment: UA CO MPLETED ON LEAN CATCH Result Comment: @COM PLETED ON 09/12 Performed By: #### L 400.0001 ####[facility] [address] [place], [address] UROBILI Normal Normal [facility] Comment on above: Order Comment: UA CO MPLETED ON LEAN CATCH Result Comment: @COM PLETED ON 09/12 Performed By: #### L 400.0001 ####[facility] [address] [place], [address] WBC Normal 0-5 [facility] Comment on above: Order Comment: UA CO MPLETED ON LEAN CATCH Result Comment: @COM PLETED ON 09/12 Performed By: #### L 400.0001 ####[facility] [address] [place], [address] White blood cell (WBC) count Ordered By: Davis Ibarra on 09-07-2024 White blood cell (WBC) count 8.4 K/mm3 4.4-11.0 [facility] ALP [Catalytic activity/Vol] Ordered By: Zack Card on 09-05-2024 Serum or plasma alkaline phosphatase measurement 141 U/L High 35-104 [facility] ALT [Catalytic activity/Vol] Ordered By: Zack Card on 09-05-2024 Serum or plasma alanine aminotransferase (ALT) measurement 22 U/L <35 [facility] Absolute lymphocyte countOrd ered By: Zack Card on 09-05-2024 Lymphocytes Auto (Unsp spec) [#/Vol] 1.39 10*3/uL 0.83-4.51 [facility] Absolute neutrophil countOrd ered By: Zack Card on 09-05-2024 Absolute neutrophil count 7.9 X10^3/uL High 2.0-7.7 [facility] Albumin [Mass/Vol]Ordered By : Zack Card on 09-05-2024 Serum or plasma albumin measurement (mass/volume) 4.2 g/dL 3.5-5.0 [facility] Albumin/Globulin [Mass ratio ]Ordered By: Zack Card on 09-05-2024 Serum or plasma albumin/globulin mass ratio 1.0 RATIO 0.9-2.4 [facility] Anion gap [Moles/Vol]Ordered By: Zack Card on 09-05-2024 Anion gap in Serum or Plasma 15 5-15 [facility] Anion gap in Serum or Plasma Ordered By: Zack Card on 09-05-2024 Anion gap [Moles/Vol] 15 mmol/L 5-15 [facility] Automated lymphocyte count a s percentage of total leukocytesOrdered By: Zack Card on 09-05-2024 Lymphocytes/100 WBC Auto (Unsp spec) 14.1 % Low 19-41 [facility] BUN/creatinine ratioOrdered By: Zack Card on 09-05-2024 Urea nitrogen/Creatinine [Mass ratio] 16.4 mg/mg 10- [facility] BUN/creatinine ratio 16.4 RATIO 10- [facility] Basophil percentageOrdered B y: Zack Card on 09-05-2024 Basophils/100 WBC (Bld) 0.4 % 0-1 [facility] Basophil percentage 0.4 % 0-1 [facility] Bilirubin, totalOrdered By: Zack Card on 09-05-2024 Bilirubin [Mass/Vol] 0.72 mg/dL 0.00-1.30 [facility] Bilirubin, total 0.72 mg/dL 0.00-1.30 [facility] CBC W/Diff, Automatedon Absolute Lymph 1.39 X10 3/uL Normal 0.83-4.51 [facility] Comment on above: Performed By: #### L 500.4050, L100.0100, L501.2450 ####[facility] [address] [place], [address] Absolute Neut 7.9 X10 3/uL High 2.0-7.7 [facility] Comment on above: Performed By: #### L 500.4050, L100.0100, L501.2450 ####[facility] [address] [place], [address] Basophils/100 WBC (Bld) 0.4 % Normal 0-1 [facility] Comment on above: Performed By: #### L 500.4050, L100.0100, L501.2450 ####[facility] [address] [place], [address] Eosinophils/100 WBC (Bld) 0.2 % Normal 0-5 [facility] Comment on above: Performed By: #### L 500.4050, L100.0100, L501.2450 ####[facility] [address] [place], [address] Erythrocyte distribution width (RBC) [Ratio] 13.3 % Normal 11.6-14.6 [facility] Comment on above: Performed By: #### L 500.4050, L100.0100, L501.2450 ####[facility] [address] [place], [address] Hematocrit (Bld) [Volume fraction] 44.4 % Normal 37-47 [facility] Comment on above: Performed By: #### L 500.4050, L100.0100, L501.2450 ####[facility] [address] [place], [address] Hemoglobin (Bld) [Mass/Vol] 15.1 g/dL High 12.0-15.0 [facility] Comment on above: Performed By: #### L 500.4050, L100.0100, L501.2450 ####[facility] [address] [place], [address] IG% 0.500 Normal 0.0-0.9 [facility] Comment on above: Result Comment: IG% - Immature Granulocytes (promyelocytes, myelocytes andmetamyelocytes) > 1% indicates that a LEFT SHIFT is Present. Performed By: #### L 500.4050, L100.0100, L501.2450 ####[facility] [address] [place], [address] Lymphocytes/100 WBC (Bld) 14.1 % Low 19-41 [facility] Comment on above: Performed By: #### L 500.4050, L100.0100, L501.2450 ####[facility] [address] [place], [address] MCH (RBC) [Entitic mass] 28.1 pg Normal 27.0-32.0 [facility] Comment on above: Performed By: #### L 500.4050, L100.0100, L501.2450 ####[facility] [address] [place], [address] MCHC (RBC) [Mass/Vol] 34.0 g/dL Normal 32-36 [facility] Comment on above: Performed By: #### L 500.4050, L100.0100, L501.2450 ####[facility] [address] [place], [address] MCV (RBC) [Entitic vol] 82.5 fL Normal 81-99 [facility] Comment on above: Performed By: #### L 500.4050, L100.0100, L501.2450 ####[facility] [address] [place], [address] Monocytes/100 WBC (Bld) 5.1 % Normal 0-10 [facility] Comment on above: Performed By: #### L 500.4050, L100.0100, L501.2450 ####[facility] [address] [place], [address] Neutrophils/100 WBC (Bld) 79.7 % High 47-70 [facility] Comment on above: Performed By: #### L 500.4050, L100.0100, L501.2450 ####[facility] [address] [place], [address] Nucleated RBC (Bld) [#/Vol] 0 10*3/uL Normal 0-5 [facility] Comment on above: Performed By: #### L 500.4050, L100.0100, L501.2450 ####[facility] [address] [place], [address] Platelet mean volume (Bld) [Entitic vol] 8.7 fL Normal 6.2-12.0 [facility] Comment on above: Performed By: #### L 500.4050, L100.0100, L501.2450 ####[facility] [address] [place], [address] Platelets (Bld) [#/Vol] 314 10*3/uL Normal 150-450 [facility] Comment on above: Performed By: #### L 500.4050, L100.0100, L501.2450 ####[facility] [address] [place], [address] RBC (Bld) [#/Vol] 5.38 10*6/uL Normal 4.2-5.4 [facility] Comment on above: Performed By: #### L 500.4050, L100.0100, L501.2450 ####[facility] [address] [place], [address] RDW SD 39.7 fl Normal 35.1-43.9 [facility] Comment on above: Performed By: #### L 500.4050, L100.0100, L501.2450 ####[facility] [address] [place], [address] WBC (Bld) [#/Vol] 9.9 10*3/uL Normal 4.4-11.0 [facility] Comment on above: Performed By: #### L 500.4050, L100.0100, L501.2450 ####[facility] [address] [place], [address] Calcium [Mass/Vol]Ordered By : Zack Card on 09-05-2024 Serum or plasma calcium measurement (mass/volume) 10.0 mg/dL 7.6-11.0 [facility] Carbon dioxide, total [Moles /volume] in Central venous bloodOrdered By: Zack Card on 09-05-2024 CO2 [Moles/Vol] 22.0 mmol/L 21.0-32.0 [facility] Carbon dioxide, total [Moles/volume] in Central venous blood 22.0 mmol/L 21.0-32.0 [facility] Chloride assayOrdered By: Butch Card on 09-05-2024 Chloride [Moles/Vol] 95 mmol/L Low 98-108 [facility] Chloride assay 95 mmol/L Low 98-108 [facility] Comprehensive Metabolic Prof ilon 09-05-2024 Albumin [Mass/Vol] 4.2 g/dL Normal 3.5-5.0 [facility] Comment on above: Performed By: #### L 500.4050, L100.0100, L501.2450 ####[facility] [address] [place], [address] Albumin/Globulin [Mass ratio] 1.0 {ratio} Normal 0.9-2.4 [facility] Comment on above: Performed By: #### L 500.4050, L100.0100, L501.2450 ####[facility] [address] [place], [address] ALK PHOS 141 U/L High 35-104 [facility] Comment on above: Performed By: #### L 500.4050, L100.0100, L501.2450 ####[facility] [address] [place], [address] ALT [Catalytic activity/Vol] 22 U/L Normal <=34 [facility] Comment on above: Performed By: #### L 500.4050, L100.0100, L501.2450 ####[facility] [address] [place], [address] AST [Catalytic activity/Vol] 33 U/L High <=31 [facility] Comment on above: Result Comment: Hemo lysis present, Results??could be affected.?? Performed By: #### L 500.4050, L100.0100, L501.2450 ####[facility] [address] [place], [address] Bilirubin [Mass/Vol] 0.72 mg/dL Normal 0.00-1.30 [facility] Comment on above: Performed By: #### L 500.4050, L100.0100, L501.2450 ####[facility] [address] [place], [address] BUN/CRE 16.4 RATIO Normal 10-20 [facility] Comment on above: Performed By: #### L 500.4050, L100.0100, L501.2450 ####[facility] [address] [place], [address] Calcium [Mass/Vol] 10.0 mg/dL Normal 7.6-11.0 [facility] Comment on above: Performed By: #### L 500.4050, L100.0100, L501.2450 ####[facility] [address] [place], [address] Chloride [Moles/Vol] 95 mmol/L Low 98-108 [facility] [facility] Comment on above: Performed By: #### L 500.4050, L100.0100, L501.2450 ####[facility] [address] [place], [address] CO2 [Moles/Vol] 22.0 mmol/L Normal 21.0-32.0 [facility] Comment on above: Performed By: #### L 500.4050, L100.0100, L501.2450 ####[facility] [address] [place], [address] Creatinine [Mass/Vol] 0.84 mg/dL Normal 0.70-1.20 [facility] Comment on above: Performed By: #### L 500.4050, L100.0100, L501.2450 ####[facility] [address] [place], [address] ECRCL 83.78 ml/min Normal 50-250 [facility] Comment on above: Performed By: #### L 500.4050, L100.0100, L501.2450 ####[facility] [address] [place], [address] GAP 15 Normal 5-15 [facility] Comment on above: Performed By: #### L 500.4050, L100.0100, L501.2450 ####[facility] [address] [place], [address] GFR/1.73 sq M.predicted among non-blacks MDRD (S/P/Bld) [Vol rate/Area] 83 mL/min/{1.73_m2} Normal >60 [facility] Comment on above: Result Comment: mL/m in/1.73m2 CKD-EPI Creatinine Equation (2020) Performed By: #### L 500.4050, L100.0100, L501.2450 ####[facility] [address] [place], [address] Globulin (S) [Mass/Vol] 4.0 g/dL Normal 2.2-4.2 [facility] Comment on above: Performed By: #### L 500.4050, L100.0100, L501.2450 ####[facility] [address] [place], [address] Glucose [Mass/Vol] 382 mg/dL High 70-99 [facility] Comment on above: Performed By: #### L 500.4050, L100.0100, L501.2450 ####[facility] [address] [place], [address] Potassium [Moles/Vol] 3.6 mmol/L Normal 3.3-5.1 [facility] Comment on above: Result Comment: Hemo lysis present, Results??could be affected.?? Performed By: #### L 500.4050, L100.0100, L501.2450 ####[facility] [address] [place], [address] Sodium [Moles/Vol] 132 mmol/L Low 133-145 [facility] Comment on above: Performed By: #### L 500.4050, L100.0100, L501.2450 ####[facility] [address] [place], [address] T PROT 8.2 g/dL Normal 5.9-8.4 [facility] Comment on above: Performed By: #### L 500.4050, L100.0100, L501.2450 ####[facility] [address] [place], [address] Urea nitrogen [Mass/Vol] 14 mg/dL Normal 4-19 [facility] Comment on above: Performed By: #### L 500.4050, L100.0100, L501.2450 ####[facility] [address] [place], [address] Creatinine [Mass/Vol]Ordered By: Zack Card on 09-05-2024 Serum creatinine measurement (mass/volume) 0.84 mg/dL 0.70-1.20 [facility] Emergency Department Summary on 09-05-2024 Emergency Department Summary Normal [facility] Eosinophil percentageOrdered By: Zack Card on 09-05-2024 Eosinophils/100 WBC (Bld) 0.2 % 0-5 [facility] Eosinophil percentage 0.2 % 0-5 [facility] Erythrocyte distribution wid th (RBC) [Ratio]Ordered By: Zack Card on 09-05-2024 Erythrocyte distribution width ratio 13.3 % 11.6-14.6 [facility] Erythrocyte distribution width standard deviation 39.7 fl 35.1-43.9 [facility] Erythrocyte distribution wid th ratioOrdered By: Zack Card on 09-05-2024 Erythrocyte distribution width (RBC) [Ratio] 13.3 % 11.6-14.6 [facility] Erythrocyte distribution wid th standard deviationOrdered By: Zack Card on 09-05-2024 Erythrocyte distribution width (RBC) [Ratio] 39.7 fl 35.1-43.9 [facility] Estimation of creatinine sylvain aranceOrdered By: Zack Card on 09-05-2024 Estimation of creatinine clearance 83.78 ml/min 50-250 [facility] GFR/1.73 sq M.predicted estephanie g non-blacks MDRD (S/P/Bld) [Vol rate/Area]Ordered By: Zack Card on 09-05-2024 Glomerular filtration rate (GFR) estimation/1.73 sq m using serum, plasma, or whole b 83 >60 [facility] Glomerular filtration rate ( GFR) estimation/1.73 sq m using serum, plasma, or whole bOrdered By: Zack Card on 09-05-2024 GFR/1.73 sq M.predicted among non-blacks MDRD (S/P/Bld) [Vol rate/Area] 83 mL/min/{1.73_m2} >60 [facility] Glucose [Mass/Vol]Ordered By : Zack Crad on 09-05-2024 Serum glucose measurement (mass/volume) 382 mg/dL High 70-99 [facility] Hematocrit Auto (Bld) [Volum e fraction]Ordered By: Zack Card on 09-05-2024 Hematocrit (Bld) [Volume fraction] 44.4 % 37-47 [facility] Automated blood hematocrit (percentage) 44.4 % 37-47 [facility] Hemoglobin measurementOrdere d By: Zack Card on 09-05-2024 Hemoglobin (Bld) [Mass/Vol] 15.1 g/dL High 12.0-15.0 [facility] Hemoglobin measurement 15.1 g/dL High 12.0-15.0 [facility] Immature granulocytes/100 WB C Auto (Bld)Ordered By: Zack Card on 09-05-2024 Immature granulocytes/100 WBC (Bld) 0.500 % 0.0-0.9 [facility] Automated immature granulocyte percentage 0.500 % 0.0-0.9 [facility] Lipaseon 09-05-2024 Lipase [Catalytic activity/Vol] 33 U/L Normal 13-75 [facility] Comment on above: Result Comment: Gege egdar note:LIPASE revised reference range effective 22.New Lipase methodology. Expected to produce lower valuesthan the previous assay method.NEW Reference Range: 13 - 75 U/L Performed By: #### L 500.4050, L100.0100, L501.2450 ####[facility] [address] [place], [address] Lipase measurementOrdered By : Zack Card on 09-05-2024 Lipase measurement 33 U/L High <32 [facility] Lymphocytes Auto (Unsp spec) [#/Vol]Ordered By: Zack Card on 09-05-2024 Absolute lymphocyte count 1.39 X10^3/uL 0.83-4.51 [facility] Lymphocytes/100 WBC Auto (Un sp spec)Ordered By: Zack Card on 09-05-2024 Automated lymphocyte count as percentage of total leukocytes 14.1 % Low 19-41 [facility] MCV (RBC) [Entitic vol]Order ed By: Zack Card on 09-05-2024 MCV (mean corpuscular volume) determination 82.5 fL 81-99 [facility] MCV (mean corpuscular volume ) determinationOrdered By: Zack Card 09-05-2024 MCV (RBC) [Entitic vol] 82.5 fL 81-99 [facility] Mean corpuscular hemoglobin (MCH) determinationOrdered By: Zack Card 09-05-2024 MCH (RBC) [Entitic mass] 28.1 pg 27.0-32.0 [facility] Mean corpuscular hemoglobin (MCH) determination 28.1 pg 27.0-32.0 [facility] Mean corpuscular hemoglobin concentration (MCHC) determinationOrdered By: Zack Card on 09-05-2024 Mean corpuscular hemoglobin concentration (MCHC) determination 34.0 g/dL 32-36 [facility] Mean platelet volume determi nationOrdered By: Zack Card on 09-05-2024 Mean platelet volume determination 8.7 fl 6.2-12.0 [facility] Monocyte percentageOrdered B y: Zack Card on 09-05-2024 Monocytes/100 WBC (Bld) 5.1 % 0-10 [facility] Mon[facility] 5.1 % 0-10 [facility] Neutrophil percentageOrdered By: Zack Card on 09-05-2024 Neutrophils/100 WBC (Bld) 79.7 % High 47-70 [facility] Neutrophil percentage 79.7 % High 47-70 [facility] Nucleated red blood cell per centageOrdered By: Zack Card on 09-05-2024 Nucleated red blood cell percentage 0 % 0-5 [facility] Platelet countOrdered By: Butch Card on 09-05-2024 Platelets (Bld) [#/Vol] 314 10*3/uL 150-450 [facility] Platelet count 314 K/mm3 150-450 [facility] Potassium (Unsp spec) [Mass/ Vol]Ordered By: Zack Card on 09-05-2024 Potassium measurement (mass/volume) 3.6 mmol/L 3.3-5.1 [facility] Potassium measurement (mass/ volume)Ordered By: Zack Card on 09-05-2024 Potassium (Unsp spec) [Mass/Vol] 3.6 mmol/L 3.3-5.1 [facility] RBC Auto (Bld) [#/Vol]Ordere d By: Zack Card on 09-05-2024 RBC (Bld) [#/Vol] 5.38 10*6/uL 4.2-5.4 [facility] Automated blood erythrocyte count 5.38 M/mm3 4.2-5.4 [facility] Serum creatinine measurement (mass/volume)Ordered By: Zack Card on 09-05-2024 Creatinine [Mass/Vol] 0.84 mg/dL 0.70-1.20 [facility] Serum globulin measurementOr dered By: Zack Card on 09-05-2024 Globulin (S) [Mass/Vol] 4.0 g/dL 2.2-4.2 [facility] Serum globulin measurement 4.0 g/dL 2.2-4.2 [facility] Serum glucose measurement (m ass/volume)Ordered By: Zack Card on 09-05-2024 Glucose [Mass/Vol] 382 mg/dL High 70-99 [facility] Serum or plasma alanine hamilton otransferase (ALT) measurementOrdered By: Zack Card on 09-05-2024 ALT [Catalytic activity/Vol] 22 U/L <35 [facility] Serum or plasma albumin xiomara urement (mass/volume)Ordered By: Zack Card on 09-05-2024 Albumin [Mass/Vol] 4.2 g/dL 3.5-5.0 [facility] Serum or plasma albumin/glob ulin mass ratioOrdered By: Zack Card on 09-05-2024 Albumin/Globulin [Mass ratio] 1.0 {ratio} 0.9-2.4 [facility] Serum or plasma alkaline sabiha sphatase measurementOrdered By: Zack Card on 09-05-2024 ALP [Catalytic activity/Vol] 141 U/L High 35-104 [facility] Serum or plasma calcium xiomara urement (mass/volume)Ordered By: Zack Card on 09-05-2024 Calcium [Mass/Vol] 10.0 mg/dL 7.6-11.0 [facility] Serum or plasma urea nitroge n measurement (mass/volume)Ordered By: Zack Card on 09-05-2024 Urea nitrogen [Mass/Vol] 14 mg/dL 09-20 [facility] Sodium levelOrdered By: Zack Card on 09-05-2024 Sodium [Moles/Vol] 132 mmol/L Low 133-145 [facility] Sodium level 132 mmol/L Low 133-145 [facility] Total proteinOrdered By: Sanjay Card on 09-05-2024 Protein [Mass/Vol] 8.2 g/dL 5.9-8.4 [facility] Total protein 8.2 g/dL 5.9-8.4 [facility] Urea nitrogen [Mass/Vol]Orde red By: Zack Card on 09-05-2024 Serum or plasma urea nitrogen measurement (mass/volume) 14 mg/dL 09-20 [facility] White blood cell (WBC) count Ordered By: Zack Card on 09-05-2024 WBC (Bld) [#/Vol] 9.9 10*3/uL 4.4-11.0 [facility] White blood cell (WBC) count 9.9 K/mm3 4.4-11.0 [facility] Basic Metabolic Profile (BMP )on 09-04-2024 BUN Normal 09-20 [facility] Comment on above: Result Comment: Canc elled via OM: Order cancelled - Patient discharged Performed By: #### L 500.2500, L100.0100 ####[facility] [address] [place], [address] BUN/CRE Normal 10-20 [facility] Comment on above: Result Comment: Canc elled via OM: Order cancelled - Patient discharged Performed By: #### L 500.2500, L100.0100 ####[facility] [address] [place], [address] Calcium Normal 7.6-11.0 [facility] Comment on above: Result Comment: Canc elled via OM: Order cancelled - Patient discharged Performed By: #### L 500.2500, L100.0100 ####[facility] [address] [place], [address] CL Normal 98-108 [facility] Comment on above: Result Comment: Canc elled via OM: Order cancelled - Patient discharged Performed By: #### L 500.2500, L100.0100 ####[facility] [address] [place], [address] CO2 Normal 21.0-32.0 [facility] Comment on above: Result Comment: Canc elled via OM: Order cancelled - Patient discharged Performed By: #### L 500.2500, L100.0100 ####[facility] [address] [place], [address] CREAT,SERUM Normal 0.70-1.20 [facility] Comment on above: Result Comment: Canc elled via OM: Order cancelled - Patient discharged Performed By: #### L 500.2500, L100.0100 ####[facility] [address] [place], [address] eGFR Normal >60 [facility] Comment on above: Result Comment: Canc elled via OM: Order cancelled - Patient discharged Performed By: #### L 500.2500, L100.0100 ####[facility] [address] [place], [address] GAP Normal 5-15 [facility] Comment on above: Result Comment: Canc elled via OM: Order cancelled - Patient discharged Performed By: #### L 500.2500, L100.0100 ####[facility] [address] [place], [address] GLU Normal 70-99 [facility] Comment on above: Result Comment: Canc elled via OM: Order cancelled - Patient discharged Performed By: #### L 500.2500, L100.0100 ####[facility] [address] [place], [address] Potassium Normal 3.3-5.1 [facility] Comment on above: Result Comment: Canc elled via OM: Order cancelled - Patient discharged Performed By: #### L 500.2500, L100.0100 ####[facility] [address] [place], [address] Basic Metabolic Profile (BMP) Normal 133-145 [facility] Comment on above: Result Comment: Canc elled via OM: Order cancelled - Patient discharged Performed By: #### L 500.2500, L100.0100 ####[facility] [address] [place], [address] CBC W/Diff, Automatedon 04-0 -2024 Absolute Neut Normal 2.0-7.7 [facility] Comment on above: Result Comment: Canc elled via OM: Order cancelled - Patient discharged Performed By: #### L 500.2500, L100.0100 ####[facility] [address] [place], [address] HCT Normal 37-47 [facility] Comment on above: Result Comment: Canc elled via OM: Order cancelled - Patient discharged Performed By: #### L 500.2500, L100.0100 ####[facility] [address] [place], [address] HGB Normal 12.0-15.0 [facility] Comment on above: Result Comment: Canc elled via OM: Order cancelled - Patient discharged Performed By: #### L 500.2500, L100.0100 ####[facility] [address] [place], [address] MCH Normal 27.0-32.0 [facility] Comment on above: Result Comment: Canc elled via OM: Order cancelled - Patient discharged Performed By: #### L 500.2500, L100.0100 ####[facility] [address] [place], [address] MCHC Normal 32-36 [facility] Comment on above: Result Comment: Canc elled via OM: Order cancelled - Patient discharged Performed By: #### L 500.2500, L100.0100 ####[facility] [address] [place], [address] MCV Normal 81-99 [facility] Comment on above: Result Comment: Canc elled via OM: Order cancelled - Patient discharged Performed By: #### L 500.2500, L100.0100 ####[facility] [address] [place], [address] NEUT% Normal 47-70 [facility] Comment on above: Result Comment: Canc elled via OM: Order cancelled - Patient discharged Performed By: #### L 500.2500, L100.0100 ####[facility] [address] [place], [address] PLT Normal 150-450 [facility] Comment on above: Result Comment: Canc elled via OM: Order cancelled - Patient discharged Performed By: #### L 500.2500, L100.0100 ####[facility] [address] [place], [address] RBC Normal 4.2-5.4 [facility] Comment on above: Result Comment: Canc elled via OM: Order cancelled - Patient discharged Performed By: #### L 500.2500, L100.0100 ####[facility] [address] [place], [address] RDW CV Normal 11.6-14.6 [facility] Comment on above: Result Comment: Canc elled via OM: Order cancelled - Patient discharged Performed By: #### L 500.2500, L100.0100 ####[facility] [address] [place], [address] RDW SD Normal 35.1-43.9 [facility] Comment on above: Result Comment: Canc elled via OM: Order cancelled - Patient discharged Performed By: #### L 500.2500, L100.0100 ####[facility] [address] [place], [address] WBC Normal 4.4-11.0 [facility] Comment on above: Result Comment: Canc elled via OM: Order cancelled - Patient discharged Performed By: #### L 500.2500, L100.0100 ####[facility] [address] [place], [address] Basic Metabolic Profile (BMP )on 09-03-2024 BUN Normal 4-19 [facility] Comment on above: Result Comment: Canc elled via OM: Order cancelled - Patient discharged Performed By: #### L 500.2500, L100.0100 ####[facility] [address] [place], [address] BUN/CRE Normal 10-20 [facility] Comment on above: Result Comment: Canc elled via OM: Order cancelled - Patient discharged Performed By: #### L 500.2500, L100.0100 ####[facility] [address] [place], [address] Calcium Normal 7.6-11.0 [facility] Comment on above: Result Comment: Canc elled via OM: Order cancelled - Patient discharged Performed By: #### L 500.2500, L100.0100 ####[facility] [address] [place], [address] CL Normal 98-108 [facility] Comment on above: Result Comment: Canc elled via OM: Order cancelled - Patient discharged Performed By: #### L 500.2500, L100.0100 ####[facility] [address] [place], [address] CO2 Normal 21.0-32.0 [facility] Comment on above: Result Comment: Canc elled via OM: Order cancelled - Patient discharged Performed By: #### L 500.2500, L100.0100 ####[facility] [address] [place], [address] CREAT,SERUM Normal 0.70-1.20 [facility] Comment on above: Result Comment: Canc elled via OM: Order cancelled - Patient discharged Performed By: #### L 500.2500, L100.0100 ####[facility] [address] [place], [address] eGFR Normal >60 [facility] Comment on above: Result Comment: Canc elled via OM: Order cancelled - Patient discharged Performed By: #### L 500.2500, L100.0100 ####[facility] [address] [place], [address] GAP Normal 5-15 [facility] Comment on above: Result Comment: Canc elled via OM: Order cancelled - Patient discharged Performed By: #### L 500.2500, L100.0100 ####[facility] [address] [place], [address] GLU Normal 70-99 [facility] Comment on above: Result Comment: Canc elled via OM: Order cancelled - Patient discharged Performed By: #### L 500.2500, L100.0100 ####[facility] [address] [place], [address] Potassium Normal 3.3-5.1 [facility] Comment on above: Result Comment: Canc elled via OM: Order cancelled - Patient discharged Performed By: #### L 500.2500, L100.0100 ####[facility] [address] [place], [address] Basic Metabolic Profile (BMP) Normal 133-145 [facility] Comment on above: Result Comment: Canc elled via OM: Order cancelled - Patient discharged Performed By: #### L 500.2500, L100.0100 ####[facility] [address] [place], [address] CBC W/Diff, Automatedon 04-0 Absolute Neut Normal 2.0-7.7 [facility] Comment on above: Result Comment: Canc elled via OM: Order cancelled - Patient discharged Performed By: #### L 500.2500, L100.0100 ####[facility] [address] [place], [address] HCT Normal 37-47 [facility] Comment on above: Result Comment: Canc elled via OM: Order cancelled - Patient discharged Performed By: #### L 500.2500, L100.0100 ####[facility] [address] [place], [address] HGB Normal 12.0-15.0 [facility] Comment on above: Result Comment: Canc elled via OM: Order cancelled - Patient discharged Performed By: #### L 500.2500, L100.0100 ####[facility] [address] [place], [address] MCH Normal 27.0-32.0 [facility] Comment on above: Result Comment: Canc elled via OM: Order cancelled - Patient discharged Performed By: #### L 500.2500, L100.0100 ####[facility] [address] [place], [address] MCHC Normal 32-36 [facility] Comment on above: Result Comment: Canc elled via OM: Order cancelled - Patient discharged Performed By: #### L 500.2500, L100.0100 ####[facility] [address] [place], [address] MCV Normal 81-99 [facility] Comment on above: Result Comment: Canc elled via OM: Order cancelled - Patient discharged Performed By: #### L 500.2500, L100.0100 ####[facility] [address] [place], [address] NEUT% Normal 47-70 [facility] Comment on above: Result Comment: Canc elled via OM: Order cancelled - Patient discharged Performed By: #### L 500.2500, L100.0100 ####[facility] [address] [place], [address] PLT Normal 150-450 [facility] Comment on above: Result Comment: Canc elled via OM: Order cancelled - Patient discharged Performed By: #### L 500.2500, L100.0100 ####[facility] [address] [place], [address] RBC Normal 4.2-5.4 [facility] Comment on above: Result Comment: Canc elled via OM: Order cancelled - Patient discharged Performed By: #### L 500.2500, L100.0100 ####[facility] [address] [place], [address] RDW CV Normal 11.6-14.6 [facility] Comment on above: Result Comment: Canc elled via OM: Order cancelled - Patient discharged Performed By: #### L 500.2500, L100.0100 ####[facility] [address] [place], [address] RDW SD Normal 35.1-43.9 [facility] Comment on above: Result Comment: Canc elled via OM: Order cancelled - Patient discharged Performed By: #### L 500.2500, L100.0100 ####[facility] [address] [place], [address] WBC Normal 4.4-11.0 [facility] Comment on above: Result Comment: Canc elled via OM: Order cancelled - Patient discharged Performed By: #### L 500.2500, L100.0100 ####[facility] [address] [place], [address] Absolute lymphocyte countOrd ered By: Latricia Aaron on 09-02-2024 Lymphocytes Auto (Unsp spec) [#/Vol] 1.33 10*3/uL 0.83-4.51 [facility] Absolute neutrophil countOrd ered By: Latricia Aaron on 09-02-2024 Absolute neutrophil count 7.4 X10^3/uL 2.0-7.7 [facility] Anion gap [Moles/Vol]Ordered By: Latricia Aaron on 09-02-2024 Anion gap in Serum or Plasma 14 5-15 [facility] Anion gap in Serum or Plasma Ordered By: Latricia Aaron on 09-02-2024 Anion gap [Moles/Vol] 14 mmol/L 5- [facility] Automated lymphocyte count a s percentage of total leukocytesOrdered By: Latricia Aaron on 09-02-2024 Lymphocytes/100 WBC Auto (Unsp spec) 14.4 % Low 19-41 [facility] BUN/creatinine ratioOrdered By: Latricia Aaron on 09-02-2024 Urea nitrogen/Creatinine [Mass ratio] 22.6 mg/mg High 10-20 [facility] BUN/creatinine ratio 22.6 RATIO High 10-20 [facility] Basic Metabolic Profile (BMP )on 09-02-2024 BUN/CRE 22.6 RATIO High 10-20 [facility] Comment on above: Performed By: #### L 500.2500, L501.5200, L100.0100, L501.2300 ####[facility] [address] [place], [address] ECRCL 105.77 ml/min Normal 50-250 [facility] Comment on above: Performed By: #### L 500.2500, L501.5200, L100.0100, L501.2300 ####[facility] [address] [place], [address] GAP 14 Normal 5-15 [facility] Comment on above: Performed By: #### L 500.2500, L501.5200, L100.0100, L501.2300 ####[facility] [address] [place], [address] Potassium [Moles/Vol] 3.9 mmol/L Normal 3.3-5.1 [facility] Comment on above: Performed By: #### L 500.2500, L501.5200, L100.0100, L501.2300 ####[facility] [address] [place], [address] Basophil percentageOrdered B y: Latricia Daypeter on 09-02-2024 Basophils/100 WBC (Bld) 0.3 % 0-1 [facility] Basophil percentage 0.3 % 0-1 [facility] Bedside Glucoseon 09-02-2024 FINGERSTICK GLU 229 mg/dL High 74-106 [facility] Comment on above: Result Comment: TALIA GEMENT OF PATIENT CARE PER NURSING PROTOCOL Performed By: #### L 501.080 ####[facility] [address] [place], [address] FINGERSTICK GLU 228 mg/dL High 74-106 [facility] Comment on above: Result Comment: TALIA GEMENT OF PATIENT CARE PER NURSING PROTOCOL Performed By: #### L 501.080 ####[facility] [address] [place], [address] FINGERSTICK GLU 248 mg/dL High 74-106 [facility] Comment on above: Result Comment: TALIA GEMENT OF PATIENT CARE PER NURSING PROTOCOL Performed By: #### L 501.080 ####[facility] [address] [place], [address] CBC W/Diff, Automatedon 04-0 -2024 Absolute Lymph 1.33 X10 3/uL Normal 0.83-4.51 [facility] Comment on above: Performed By: #### L 500.2500, L501.5200, L100.0100, L501.2300 ####[facility] [address] [place], [address] Absolute Neut 7.4 X10 3/uL Normal 2.0-7.7 [facility] Comment on above: Performed By: #### L 500.2500, L501.5200, L100.0100, L501.2300 ####[facility] [address] [place], [address] Basophils/100 WBC (Bld) 0.3 % Normal 0-1 [facility] Comment on above: Performed By: #### L 500.2500, L501.5200, L100.0100, L501.2300 ####[facility] [address] [place], [address] Eosinophils/100 WBC (Bld) 0.2 % Normal 0-5 [facility] Comment on above: Performed By: #### L 500.2500, L501.5200, L100.0100, L501.2300 ####[facility] [address] [place], [address] Erythrocyte distribution width (RBC) [Ratio] 13.8 % Normal 11.6-14.6 [facility] Comment on above: Performed By: #### L 500.2500, L501.5200, L100.0100, L501.2300 ####[facility] [address] [place], [address] Hematocrit (Bld) [Volume fraction] 42.7 % Normal 37-47 [facility] Comment on above: Performed By: #### L 500.2500, L501.5200, L100.0100, L501.2300 ####[facility] [address] [place], [address] Hemoglobin (Bld) [Mass/Vol] 14.0 g/dL Normal 12.0-15.0 [facility] Comment on above: Performed By: #### L 500.2500, L501.5200, L100.0100, L501.2300 ####[facility] [address] [place], [address] IG% 0.400 Normal 0.0-0.9 [facility] Comment on above: Result Comment: IG% - Immature Granulocytes (promyelocytes, myelocytes andmetamyelocytes) > 1% indicates that a LEFT SHIFT is Present. Performed By: #### L 500.2500, L501.5200, L100.0100, L501.2300 ####[facility] [address] [place], [address] Lymphocytes/100 WBC (Bld) 14.4 % Low 19-41 [facility] Comment on above: Performed By: #### L 500.2500, L501.5200, L100.0100, L501.2300 ####[facility] [address] [place], [address] MCH (RBC) [Entitic mass] 27.5 pg Normal 27.0-32.0 [facility] Comment on above: Performed By: #### L 500.2500, L501.5200, L100.0100, L501.2300 ####[facility] [address] [place], [address] MCHC (RBC) [Mass/Vol] 32.8 g/dL Normal 32-36 [facility] Comment on above: Performed By: #### L 500.2500, L501.5200, L100.0100, L501.2300 ####[facility] [address] [place], [address] MCV (RBC) [Entitic vol] 83.7 fL Normal 81-99 [facility] Comment on above: Performed By: #### L 500.2500, L501.5200, L100.0100, L501.2300 ####[facility] [address] [place], [address] Monocytes/100 WBC (Bld) 4.0 % Normal 0-10 [facility] Comment on above: Performed By: #### L 500.2500, L501.5200, L100.0100, L501.2300 ####[facility] [address] [place], [address] Neutrophils/100 WBC (Bld) 80.7 % High 47-70 [facility] Comment on above: Performed By: #### L 500.2500, L501.5200, L100.0100, L501.2300 ####[facility] [address] [place], [address] Nucleated RBC (Bld) [#/Vol] 0 10*3/uL Normal 0-5 [facility] Comment on above: Performed By: #### L 500.2500, L501.5200, L100.0100, L501.2300 ####[facility] [address] [place], [address] Platelet mean volume (Bld) [Entitic vol] 8.8 fL Normal 6.2-12.0 [facility] Comment on above: Performed By: #### L 500.2500, L501.5200, L100.0100, L501.2300 ####[facility] [address] [place], [address] Platelets (Bld) [#/Vol] 269 10*3/uL Normal 150-450 [facility] Comment on above: Performed By: #### L 500.2500, L501.5200, L100.0100, L501.2300 ####[facility] [address] [place], [address] RBC (Bld) [#/Vol] 5.10 10*6/uL Normal 4.2-5.4 [facility] Comment on above: Performed By: #### L 500.2500, L501.5200, L100.0100, L501.2300 ####[facility] [address] [place], [address] RDW SD 42.4 fl Normal 35.1-43.9 [facility] Comment on above: Performed By: #### L 500.2500, L501.5200, L100.0100, L501.2300 ####[facility] [address] [place], [address] WBC (Bld) [#/Vol] 9.2 10*3/uL Normal 4.4-11.0 [facility] Comment on above: Performed By: #### L 500.2500, L501.5200, L100.0100, L501.2300 ####[facility] [address] [place], [address] Calcium [Mass/Vol]Ordered By : Latricia Aaron on 09-02-2024 Serum or plasma calcium measurement (mass/volume) 9.4 mg/dL 7.6-11.0 [facility] Carbon dioxide, total [Moles /volume] in Central venous bloodOrdered By: Latricia Aaron on 09-02-2024 CO2 [Moles/Vol] 20.0 mmol/L Low 21.0-32.0 [facility] Comment on above: Performed By: #### L 500.2500, L501.5200, L100.0100, L501.2300 ####[facility] [address] [place], [address] Carbon dioxide, total [Moles/volume] in Central venous blood 20.0 mmol/L Low 21.0-32.0 [facility] Chloride assayOrdered By: Tristan Aaron on 09-02-2024 Chloride [Moles/Vol] 101 mmol/L Normal 98-108 [facility] Comment on above: Performed By: #### L 500.2500, L501.5200, L100.0100, L501.2300 ####[facility] [address] [place], [place], [id number] Chloride assay 101 mmol/L 98-108 [facility] Creatinine [Mass/Vol]Ordered By: Latricia Aaron on 09-02-2024 Serum creatinine measurement (mass/volume) 0.67 mg/dL Low 0.70-1.20 [facility] Eosinophil percentageOrdered By: Latricia Aaron on 09-02-2024 Eosinophils/100 WBC (Bld) 0.2 % 0-5 [facility] Eosinophil percentage 0.2 % 0-5 [facility] Erythrocyte distribution wid th (RBC) [Ratio]Ordered By: Latricia Aaron on 09-02-2024 Erythrocyte distribution width ratio 13.8 % 11.6-14.6 [facility] Erythrocyte distribution wid th ratioOrdered By: Latricia Aaron on 09-02-2024 Erythrocyte distribution width (RBC) [Ratio] 13.8 % 11.6-14.6 [facility] Erythrocyte distribution wid th standard deviationOrdered By: Latricia Aaron on 09-02-2024 Erythrocyte distribution width (RBC) [Ratio] 42.4 fl 35.1-43.9 [facility] Erythrocyte distribution width standard deviation 42.4 fl 35.1-43.9 [facility] Estimation of creatinine sylvain aranceOrdered By: Latricia Aaron on 09-02-2024 Estimation of creatinine clearance 105.77 ml/min 50-250 [facility] GFR/1.73 sq M.predicted estephanie g non-blacks MDRD (S/P/Bld) [Vol rate/Area]Ordered By: Latricia Aaron on 09-02-2024 Glomerular filtration rate (GFR) estimation/1.73 sq m using serum, plasma, or whole b 104 >60 [facility] Glomerular filtration rate ( GFR) estimation/1.73 sq m using serum, plasma, or whole bOrdered By: Latricia Aaron on 09-02-2024 GFR/1.73 sq M.predicted among non-blacks MDRD (S/P/Bld) [Vol rate/Area] 104 mL/min/{1.73_m2} Normal >60 [facility] Comment on above: Result Comment: mL/m in/1.73m2 CKD-EPI Creatinine Equation (2020) Performed By: #### L 500.2500, L501.5200, L100.0100, L501.2300 ####[facility] [address] [place], [address] Glucose [Mass/Vol]Ordered By : Latricia Aaron on 09-02-2024 Serum glucose measurement (mass/volume) 242 mg/dL High 70-99 [facility] Glucose measurement at bedsi deOrdered By: Latricia Aaron on 09-02-2024 Glucose [Mass/Vol] 229 mg/dL High 74-106 [facility] Glucose measurement at bedside 229 mg/dL High 74-106 [facility] Hematocrit Auto (Bld) [Volum e fraction]Ordered By: Latricia Aaron on 09-02-2024 Hematocrit (Bld) [Volume fraction] 42.7 % 37-47 [facility] Automated blood hematocrit (percentage) 42.7 % 37-47 [facility] Hemoglobin measurementOrdere d By: Latricia Aaron on 09-02-2024 Hemoglobin (Bld) [Mass/Vol] 14.0 g/dL 12.0-15.0 [facility] Hemoglobin measurement 14.0 g/dL 12.0-15.0 [facility] Immature granulocytes/100 WB C Auto (Bld)Ordered By: Latricia Aaron on 09-02-2024 Immature granulocytes/100 WBC (Bld) 0.400 % 0.0-0.9 [facility] Automated immature granulocyte percentage 0.400 % 0.0-0.9 [facility] Lymphocytes Auto (Unsp spec) [#/Vol]Ordered By: Latricia Aaron on 09-02-2024 Absolute lymphocyte count 1.33 X10^3/uL 0.83-4.51 [facility] Lymphocytes/100 WBC Auto (Un sp spec)Ordered By: Latricia Aaron on 09-02-2024 Automated lymphocyte count as percentage of total leukocytes 14.4 % Low 19-41 [facility] MCV (RBC) [Entitic vol]Order ed By: Latricia Aaron on 09-02-2024 MCV (mean corpuscular volume) determination 83.7 fL 81-99 [facility] MCV (mean corpuscular volume ) determinationOrdered By: Latricia Aaron on 09-02-2024 MCV (RBC) [Entitic vol] 83.7 fL 81-99 [facility] Magnesiumon 09-02-2024 Magnesium [Mass/Vol] 2.0 mg/dL Normal 1.5-2.2 [facility] Comment on above: Performed By: #### L 500.2500, L501.5200, L100.0100, L501.2300 ####[facility] [address] [place], [address] Magnesium (Unsp spec) [Mass/ Vol]Ordered By: Latricia Aaron on 09-02-2024 Magnesium measurement (mass/volume) 2.0 mg/dL 1.5-2.2 [facility] Magnesium measurement (mass/ volume)Ordered By: Latricia Aaron on 09-02-2024 Magnesium (Unsp spec) [Mass/Vol] 2.0 mg/dL 1.5-2.2 [facility] Mean corpuscular hemoglobin (MCH) determinationOrdered By: Latricia Aaron on 09-02-2024 MCH (RBC) [Entitic mass] 27.5 pg 27.0-32.0 [facility] Mean corpuscular hemoglobin (MCH) determination 27.5 pg 27.0-32.0 [facility] Mean corpuscular hemoglobin concentration (MCHC) determinationOrdered By: Latricia Aaron on 09-02-2024 Mean corpuscular hemoglobin concentration (MCHC) determination 32.8 g/dL 32-36 [facility] Mean platelet volume determi nationOrdered By: Latricia Aaron on 09-02-2024 Mean platelet volume determination 8.8 fl 6.2-12.0 [facility] Monocyte percentageOrdered B y: Latricia Aaron on 09-02-2024 Monocytes/100 WBC (Bld) 4.0 % 0-10 [facility] Monocyte percentage 4.0 % 0-10 [facility] Neutrophil percentageOrdered By: Latricia Aaron on 09-02-2024 Neutrophils/100 WBC (Bld) 80.7 % High 47-70 [facility] Neutrophil percentage 80.7 % High 47-70 [facility] Nucleated red blood cell per centageOrdered By: Latricia Aaron on 09-02-2024 Nucleated red blood cell percentage 0 % 0-5 [facility] Phosphoruson 09-02-2024 Phosphate [Mass/Vol] 2.1 mg/dL Low 2.7-4.5 [facility] Comment on above: Performed By: #### L 500.2500, L501.5200, L100.0100, L501.2300 ####[facility] [address] [place], [address] Platelet countOrdered By: Tristan Aaron on 09-02-2024 Platelets (Bld) [#/Vol] 269 10*3/uL 150-450 [facility] Platelet count 269 K/mm3 150-450 [facility] Potassium (Unsp spec) [Mass/ Vol]Ordered By: Latricia Aaron on 09-02-2024 Potassium measurement (mass/volume) 3.9 mmol/L 3.3-5.1 [facility] Potassium measurement (mass/ volume)Ordered By: Latricia Aaron on 09-02-2024 Potassium (Unsp spec) [Mass/Vol] 3.9 mmol/L 3.3-5.1 [facility] RBC Auto (Bld) [#/Vol]Ordere d By: Latricia Aaron on 09-02-2024 RBC (Bld) [#/Vol] 5.10 10*6/uL 4.2-5.4 [facility] Automated blood erythrocyte count 5.10 M/mm3 4.2-5.4 [facility] Serum creatinine measurement (mass/volume)Ordered By: Latricia Aaron on 09-02-2024 Creatinine [Mass/Vol] 0.67 mg/dL Low 0.70-1.20 [facility] Comment on above: Performed By: #### L 500.2500, L501.5200, L100.0100, L501.2300 ####[facility] [address] [place], [address] Serum glucose measurement (m ass/volume)Ordered By: Latricia Aaron on 09-02-2024 Glucose [Mass/Vol] 242 mg/dL High 70-99 [facility] Comment on above: Performed By: #### L 500.2500, L501.5200, L100.0100, L501.2300 ####[facility] [address] [place], [address] Serum or plasma calcium xiomara urement (mass/volume)Ordered By: Latricia Aaron on 09-02-2024 Calcium [Mass/Vol] 9.4 mg/dL Normal 7.6-11.0 [facility] Comment on above: Performed By: #### L 500.2500, L501.5200, L100.0100, L501.2300 ####[facility] [address] [place], [address] Serum or plasma urea nitroge n measurement (mass/volume)Ordered By: Latricia Aaron on 09-02-2024 Urea nitrogen [Mass/Vol] 15 mg/dL Normal 4-19 [facility] Comment on above: Performed By: #### L 500.2500, L501.5200, L100.0100, L501.2300 ####[facility] [address] [place], [address] Serum phosphorus measurement Ordered By: Latricia Aaron on 09-02-2024 Serum phosphorus measurement 2.1 mg/dL Low 2.7-4.5 [facility] Sodium levelOrdered By: Neymar Aaron on 09-02-2024 Sodium [Moles/Vol] 136 mmol/L Normal 133-145 [facility] Comment on above: Performed By: #### L 500.2500, L501.5200, L100.0100, L501.2300 ####[facility] [address] [place], [address] Sodium level 136 mmol/L 133-145 [facility] Urea nitrogen [Mass/Vol]Orde red By: Latricia Aaron on 09-02-2024 Serum or plasma urea nitrogen measurement (mass/volume) 15 mg/dL - [facility] White blood cell (WBC) count Ordered By: Latricia Aaron on 09-02-2024 WBC (Bld) [#/Vol] 9.2 10*3/uL 4.4-11.0 [facility] White blood cell (WBC) count 9.2 K/mm3 4.4-11.0 [facility] Basic Metabolic Profile (BMP )on 09-01-2024 BUN/CRE 27.7 RATIO High 10-20 [facility] Comment on above: Performed By: #### L 500.2500, L100.0500 ####[facility] [address] [place], [address] Calcium [Mass/Vol] 8.7 mg/dL Normal 7.6-11.0 [facility] Comment on above: Performed By: #### L 500.2500, L100.0500 ####[facility] [address] [place], [address] Chloride [Moles/Vol] 110 mmol/L High 98-108 [facility] Comment on above: Performed By: #### L 500.2500, L100.0500 ####[facility] [address] [place], [address] CO2 [Moles/Vol] 19.8 mmol/L Low 21.0-32.0 [facility] Comment on above: Performed By: #### L 500.2500, L100.0500 ####[facility] [address] [place], [address] Creatinine [Mass/Vol] 0.77 mg/dL Normal 0.70-1.20 [facility] Comment on above: Performed By: #### L 500.2500, L100.0500 ####[facility] [address] [place], [address] ECRCL 91.72 ml/min Normal 50-250 [facility] Comment on above: Performed By: #### L 500.2500, L100.0500 ####[facility] [address] [place], [address] GAP 8 Normal 5-15 [facility] Comment on above: Performed By: #### L 500.2500, L100.0500 ####[facility] [address] [place], [address] GFR/1.73 sq M.predicted among non-blacks MDRD (S/P/Bld) [Vol rate/Area] 93 mL/min/{1.73_m2} Normal >60 [facility] Comment on above: Result Comment: mL/m in/1.73m2 CKD-EPI Creatinine Equation (2020) Performed By: #### L 500.2500, L100.0500 ####[facility] [address] [place], [address] Glucose [Mass/Vol] 93 mg/dL Normal 70-99 [facility] Comment on above: Performed By: #### L 500.2500, L100.0500 ####[facility] [address] [place], [address] Potassium [Moles/Vol] 4.0 mmol/L Normal 3.3-5.1 [facility] Comment on above: Performed By: #### L 500.2500, L100.0500 ####[facility] [address] [place], [address] Sodium [Moles/Vol] 138 mmol/L Normal 133-145 [facility] Comment on above: Performed By: #### L 500.2500, L100.0500 ####[facility] [address] [place], [address] Urea nitrogen [Mass/Vol] 21 mg/dL High 4-19 [facility] Comment on above: Performed By: #### L 500.2500, L100.0500 ####[facility] [address] [place], [address] Bedside Glucoseon 09-01-2024 FINGERSTICK GLU 162 mg/dL High 74-106 [facility] Comment on above: Result Comment: TALIA GEMENT OF PATIENT CARE PER NURSING PROTOCOL Performed By: #### L 501.080 ####[facility] [address] [place], [address] FINGERSTICK GLU 58 mg/dL Low 74-106 [facility] Comment on above: Result Comment: TALIA GEMENT OF PATIENT CARE PER NURSING PROTOCOL Performed By: #### L 501.080 ####[facility] [address] [place], [address] FINGERSTICK GLU 142 mg/dL High 74-106 [facility] Comment on above: Result Comment: TALIA GEMENT OF PATIENT CARE PER NURSING PROTOCOL Performed By: #### L 501.080 ####[facility] [address] [place], [address] FINGERSTICK GLU 80 mg/dL Normal 74-106 [facility] Comment on above: Result Comment: TALIA GEMENT OF PATIENT CARE PER NURSING PROTOCOL Performed By: #### L 501.080 ####[facility] [address] [place], [address] FINGERSTICK GLU 73 mg/dL Low 74-106 [facility] Comment on above: Result Comment: TALIA GEMENT OF PATIENT CARE PER NURSING PROTOCOL Performed By: #### L 501.080 ####[facility] [address] [place], [address] FINGERSTICK GLU 139 mg/dL High 74-106 [facility] Comment on above: Result Comment: TALIA GEMENT OF PATIENT CARE PER NURSING PROTOCOL Performed By: #### L 501.080 ####[facility] [address] [place], [address] FINGERSTICK GLU 90 mg/dL Normal 74-106 [facility] Comment on above: Result Comment: TALIA GEMENT OF PATIENT CARE PER NURSING PROTOCOL Performed By: #### L 501.080 ####[facility] [address] [place], [address] CBC-Complete Blood Cnt No Di ffon 09-01-2024 Erythrocyte distribution width (RBC) [Ratio] 14.2 % Normal 11.6-14.6 [facility] Comment on above: Performed By: #### L 500.2500, L100.0500 ####[facility] [address] [place], [address] Hematocrit (Bld) [Volume fraction] 32.6 % Low 37-47 [facility] Comment on above: Performed By: #### L 500.2500, L100.0500 ####[facility] [address] [place], [address] Hemoglobin (Bld) [Mass/Vol] 10.7 g/dL Low 12.0-15.0 [facility] Comment on above: Performed By: #### L 500.2500, L100.0500 ####[facility] [address] [place], [address] MCH (RBC) [Entitic mass] 28.2 pg Normal 27.0-32.0 [facility] Comment on above: Performed By: #### L 500.2500, L100.0500 ####[facility] [address] [place], [address] MCHC (RBC) [Mass/Vol] 32.8 g/dL Normal 32-36 [facility] Comment on above: Performed By: #### L 500.2500, L100.0500 ####[facility] [address] [place], [address] MCV (RBC) [Entitic vol] 85.8 fL Normal 81-99 [facility] Comment on above: Performed By: #### L 500.2500, L100.0500 ####[facility] [address] [place], [address] Platelet mean volume (Bld) [Entitic vol] 9.0 fL Normal 6.2-12.0 [facility] Comment on above: Performed By: #### L 500.2500, L100.0500 ####[facility] [address] [place], [address] Platelets (Bld) [#/Vol] 238 10*3/uL Normal 150-450 [facility] Comment on above: Performed By: #### L 500.2500, L100.0500 ####[facility] [address] [place], [address] RBC (Bld) [#/Vol] 3.80 10*6/uL Low 4.2-5.4 [facility] Comment on above: Performed By: #### L 500.2500, L100.0500 ####[facility] [address] [place], [address] RDW SD 44.1 fl High 35.1-43.9 [facility] Comment on above: Performed By: #### L 500.2500, L100.0500 ####[facility] [address] [place], [address] WBC (Bld) [#/Vol] 6.6 10*3/uL Normal 4.4-11.0 [facility] Comment on above: Performed By: #### L 500.2500, L100.0500 ####[facility] [address] [place], [address] Echo Complete W/ Contraston 09-01-2024 Echo Complete W/ Contrast Normal [facility] Echocardiogram study reportO rdered By: Alli Brito on 09-01-2024 Study report [facility] Work Phone: Bedside Glucoseon 08-31-2024 FINGERSTICK GLU 228 mg/dL High 74-106 [facility] Comment on above: Result Comment: TALIA GEMENT OF PATIENT CARE PER NURSING PROTOCOL Performed By: #### L 501.080 ####[facility] [address] [place], [address] FINGERSTICK GLU 129 mg/dL High 74-106 [facility] Comment on above: Result Comment: TALIA GEMENT OF PATIENT CARE PER NURSING PROTOCOL Performed By: #### L 501.080 ####[facility] [address] [place], [address] FINGERSTICK GLU 152 mg/dL High 74-106 [facility] Comment on above: Result Comment: ATLIA GEMENT OF PATIENT CARE PER NURSING PROTOCOL Performed By: #### L 501.080 ####[facility] [address] [place], [address] FINGERSTICK GLU 126 mg/dL High 74-106 [facility] Comment on above: Result Comment: TALIA GEMENT OF PATIENT CARE PER NURSING PROTOCOL Performed By: #### L 501.080 ####[facility] [address] [place], [address] Bedside Glucoseon 08-30-2024 FINGERSTICK GLU 215 mg/dL High 74-106 [facility] Comment on above: Result Comment: TALIA GEMENT OF PATIENT CARE PER NURSING PROTOCOL Performed By: #### L 501.080 ####[facility] [address] [place], [address] FINGERSTICK GLU 253 mg/dL High 74-106 [facility] Comment on above: Result Comment: TALIA GEMENT OF PATIENT CARE PER NURSING PROTOCOL Performed By: #### L 501.080 ####[facility] [address] [place], [address] FINGERSTICK GLU 152 mg/dL High 74-106 [facility] Comment on above: Result Comment: TALIA GEMENT OF PATIENT CARE PER NURSING PROTOCOL Performed By: #### L 501.080 ####[facility] [address] [place], [address] FINGERSTICK GLU 117 mg/dL High 74-106 [facility] Comment on above: Result Comment: TALIA GEMENT OF PATIENT CARE PER NURSING PROTOCOL Performed By: #### L 501.080 ####[facility] [address] [place], [address] FINGERSTICK GLU 318 mg/dL High 74-106 [facility] Comment on above: Result Comment: TALIA GEMENT OF PATIENT CARE PER NURSING PROTOCOL Performed By: #### L 501.080 ####[facility] [address] [place], [address] CDIFF (PCR)on 08-30-2024 CDIFF Normal [facility] Comment on above: Performed By: #### M 100.637, M100.6796 ####[facility] [address] [place], [address] ENTERIC PATHOGEN PANEL STOOL on 08-30-2024 EP PANEL Normal [facility] Comment on above: Performed By: #### M 100.637, M100.6796 ####[facility] [address] [place], [address] Basic Metabolic Profile (BMP )on 08-29-2024 BUN/CRE 32.2 RATIO High 10-20 [facility] Comment on above: Performed By: #### L 100.0100, L500.2500 ####[facility] [address] [place], [address] Calcium [Mass/Vol] 8.9 mg/dL Normal 7.6-11.0 [facility] Comment on above: Performed By: #### L 100.0100, L500.2500 ####[facility] [address] [place], [address] Chloride [Moles/Vol] 104 mmol/L Normal 98-108 [facility] Comment on above: Performed By: #### L 100.0100, L500.2500 ####[facility] [address] [place], [address] CO2 [Moles/Vol] 21.3 mmol/L Normal 21.0-32.0 [facility] Comment on above: Performed By: #### L 100.0100, L500.2500 ####[facility] [address] [place], [address] Creatinine [Mass/Vol] 0.80 mg/dL Normal 0.70-1.20 [facility] Comment on above: Performed By: #### L 100.0100, L500.2500 ####[facility] [address] [place], [address] ECRCL 88.59 ml/min Normal 50-250 [facility] Comment on above: Performed By: #### L 100.0100, L500.2500 ####[facility] [address] [place], [address] GAP 10 Normal 5-15 [facility] Comment on above: Performed By: #### L 100.0100, L500.2500 ####[facility] [address] [place], [address] GFR/1.73 sq M.predicted among non-blacks MDRD (S/P/Bld) [Vol rate/Area] 89 mL/min/{1.73_m2} Normal >60 [facility] Comment on above: Result Comment: mL/m in/1.73m2 CKD-EPI Creatinine Equation (2020) Performed By: #### L 100.0100, L500.2500 ####[facility] [address] [place], [address] Glucose [Mass/Vol] 104 mg/dL High 70-99 [facility] Comment on above: Performed By: #### L 100.0100, L500.2500 ####[facility] [address] [place], [address] Potassium [Moles/Vol] 3.7 mmol/L Normal 3.3-5.1 [facility] Comment on above: Performed By: #### L 100.0100, L500.2500 ####[facility] [address] [place], [address] Sodium [Moles/Vol] 135 mmol/L Normal 133-145 [facility] Comment on above: Performed By: #### L 100.0100, L500.2500 ####[facility] [address] [place], [address] Urea nitrogen [Mass/Vol] 26 mg/dL High 4-19 [facility] Comment on above: Performed By: #### L 100.0100, L500.2500 ####[facility] [address] [place], [address] Bedside Glucoseon 08-29-2024 FINGERSTICK GLU 160 mg/dL High 74-106 [facility] Comment on above: Result Comment: TALIA GEMENT OF PATIENT CARE PER NURSING PROTOCOL Performed By: #### L 501.080 ####[facility] [address] [place], [address] FINGERSTICK GLU 156 mg/dL High 74-106 [facility] Comment on above: Result Comment: TALIA GEMENT OF PATIENT CARE PER NURSING PROTOCOL Performed By: #### L 501.080 ####[facility] [address] [place], [address] FINGERSTICK GLU 93 mg/dL Normal 74-106 [facility] Comment on above: Result Comment: TALIA CHAMBERS OF PATIENT CARE PER NURSING PROTOCOL Performed By: #### L 501.080 ####[facility] [address] [place], [address] CBC W/Diff, Automatedon 08-03 Absolute Lymph 2.20 X10 3/uL Normal 0.83-4.51 [facility] Comment on above: Performed By: #### L 100.0100, L500.2500 ####[facility] [address] [place], [address] Absolute Neut 5.8 X10 3/uL Normal 2.0-7.7 [facility] Comment on above: Performed By: #### L 100.0100, L500.2500 ####[facility] [address] [place], [address] Basophils/100 WBC (Bld) 0.6 % Normal 0-1 [facility] Comment on above: Performed By: #### L 100.0100, L500.2500 ####[facility] [address] [place], [address] Eosinophils/100 WBC (Bld) 2.4 % Normal 0-5 [facility] Comment on above: Performed By: #### L 100.0100, L500.2500 ####[facility] [address] [place], [address] Erythrocyte distribution width (RBC) [Ratio] 14.0 % Normal 11.6-14.6 [facility] Comment on above: Performed By: #### L 100.0100, L500.2500 ####[facility] [address] [place], [address] Hematocrit (Bld) [Volume fraction] 33.7 % Low 37-47 [facility] Comment on above: Performed By: #### L 100.0100, L500.2500 ####[facility] [address] [place], [address] Hemoglobin (Bld) [Mass/Vol] 11.2 g/dL Low 12.0-15.0 [facility] Comment on above: Performed By: #### L 100.0100, L500.2500 ####[facility] [address] [place], [address] IG% 0.300 Normal 0.0-0.9 [facility] Comment on above: Result Comment: IG% - Immature Granulocytes (promyelocytes, myelocytes andmetamyelocytes) > 1% indicates that a LEFT SHIFT is Present. Performed By: #### L 100.0100, L500.2500 ####[facility] [address] [place], [address] Lymphocytes/100 WBC (Bld) 24.4 % Normal 19-41 [facility] Comment on above: Performed By: #### L 100.0100, L500.2500 ####[facility] [address] [place], [address] MCH (RBC) [Entitic mass] 28.2 pg Normal 27.0-32.0 [facility] Comment on above: Performed By: #### L 100.0100, L500.2500 ####[facility] [address] [place], [address] MCHC (RBC) [Mass/Vol] 33.2 g/dL Normal 32-36 [facility] Comment on above: Performed By: #### L 100.0100, L500.2500 ####[facility] [address] [place], [address] MCV (RBC) [Entitic vol] 84.9 fL Normal 81-99 [facility] Comment on above: Performed By: #### L 100.0100, L500.2500 ####[facility] [address] [place], [address] Monocytes/100 WBC (Bld) 7.6 % Normal 0-10 [facility] Comment on above: Performed By: #### L 100.0100, L500.2500 ####[facility] [address] [place], [address] Neutrophils/100 WBC (Bld) 64.7 % Normal 47-70 [facility] Comment on above: Performed By: #### L 100.0100, L500.2500 ####[facility] [address] [place], [address] Nucleated RBC (Bld) [#/Vol] 0 10*3/uL Normal 0-5 [facility] Comment on above: Performed By: #### L 100.0100, L500.2500 ####[facility] [address] [place], [address] Platelet mean volume (Bld) [Entitic vol] 9.3 fL Normal 6.2-12.0 [facility] Comment on above: Performed By: #### L 100.0100, L500.2500 ####[facility] [address] [place], [address] Platelets (Bld) [#/Vol] 205 10*3/uL Normal 150-450 [facility] Comment on above: Performed By: #### L 100.0100, L500.2500 ####[facility] [address] [place], [address] RBC (Bld) [#/Vol] 3.97 10*6/uL Low 4.2-5.4 [facility] Comment on above: Performed By: #### L 100.0100, L500.2500 ####[facility] [address] [place], [address] RDW SD 43.4 fl Normal 35.1-43.9 [facility] Comment on above: Performed By: #### L 100.0100, L500.2500 ####[facility] [address] [place], [address] WBC (Bld) [#/Vol] 9.0 10*3/uL Normal 4.4-11.0 [facility] Comment on above: Performed By: #### L 100.0100, L500.2500 ####[facility] [address] [place], [address] Clostridium difficile detect ion by polymerase chain reactionOrdered By: Latricia Burdick on 08-29-2024 C. difficile DNA CRISSY+probe Ql (Unsp spec) [facility] ALP [Catalytic activity/Vol] Ordered By: Nicole Trujillo on 08-28-2024 Serum or plasma alkaline phosphatase measurement 115 U/L High 35-104 [facility] ALT [Catalytic activity/Vol] Ordered By: Nicole Trujillo on 08-28-2024 Serum or plasma alanine aminotransferase (ALT) measurement 11 U/L <35 [facility] Albumin [Mass/Vol]Ordered By : Nicole Trujillo on 08-28-2024 Serum or plasma albumin measurement (mass/volume) 3.2 g/dL Low 3.5-5.0 [facility] Albumin/Globulin [Mass ratio ]Ordered By: Nicole Trujillo on 08-28-2024 Serum or plasma albumin/globulin mass ratio 1.1 RATIO 0.9-2.4 [facility] Bedside Glucoseon 08-28-2024 FINGERSTICK GLU 182 mg/dL High 74-106 [facility] Comment on above: Result Comment: TALIA GEMENT OF PATIENT CARE PER NURSING PROTOCOL Performed By: #### L 501.080 ####[facility] [address] [place], [address] FINGERSTICK GLU 176 mg/dL High 74-106 [facility] Comment on above: Result Comment: TALIA GEMENT OF PATIENT CARE PER NURSING PROTOCOL Performed By: #### L 501.080 ####[facility] [address] [place], [address] FINGERSTICK GLU 192 mg/dL High 74-106 [facility] Comment on above: Result Comment: TALIA GEMENT OF PATIENT CARE PER NURSING PROTOCOL Performed By: #### L 501.080 ####[facility] [address] [place], [address] FINGERSTICK GLU 157 mg/dL High 74-106 [facility] Comment on above: Result Comment: TALIA GEMENT OF PATIENT CARE PER NURSING PROTOCOL Performed By: #### L 501.080 ####[facility] [address] [place], [address] Bilirubin, totalOrdered By: Nicole Trujillo on 08-28-2024 Bilirubin [Mass/Vol] 0.53 mg/dL 0.00-1.30 [facility] Bilirubin, total 0.53 mg/dL 0.00-1.30 [facility] CBC W/Diff, Automatedon 08-03 Absolute Lymph 1.79 X10 3/uL Normal 0.83-4.51 [facility] Comment on above: Performed By: #### L 501.2300, L100.0100, L500.4050, L501.5200 ####[facility] [address] [place], [address] Absolute Neut 5.2 X10 3/uL Normal 2.0-7.7 [facility] Comment on above: Performed By: #### L 501.2300, L100.0100, L500.4050, L501.5200 ####[facility] [address] [place], [address] Basophils/100 WBC (Bld) 0.5 % Normal 0-1 [facility] Comment on above: Performed By: #### L 501.2300, L100.0100, L500.4050, L501.5200 ####[facility] [address] [place], [address] Eosinophils/100 WBC (Bld) 3.0 % Normal 0-5 [facility] Comment on above: Performed By: #### L 501.2300, L100.0100, L500.4050, L501.5200 ####[facility] [address] [place], [address] Erythrocyte distribution width (RBC) [Ratio] 14.3 % Normal 11.6-14.6 [facility] Comment on above: Performed By: #### L 501.2300, L100.0100, L500.4050, L501.5200 ####[facility] [address] [place], [address] Hematocrit (Bld) [Volume fraction] 34.8 % Low 37-47 [facility] Comment on above: Performed By: #### L 501.2300, L100.0100, L500.4050, L501.5200 ####[facility] [address] [place], [address] Hemoglobin (Bld) [Mass/Vol] 11.7 g/dL Low 12.0-15.0 [facility] Comment on above: Performed By: #### L 501.2300, L100.0100, L500.4050, L501.5200 ####[facility] [address] [place], [address] IG% 0.400 Normal 0.0-0.9 [facility] Comment on above: Result Comment: IG% - Immature Granulocytes (promyelocytes, myelocytes andmetamyelocytes) > 1% indicates that a LEFT SHIFT is Present. Performed By: #### L 501.2300, L100.0100, L500.4050, L501.5200 ####[facility] [address] [place], [address] Lymphocytes/100 WBC (Bld) 22.7 % Normal 19-41 [facility] Comment on above: Performed By: #### L 501.2300, L100.0100, L500.4050, L501.5200 ####[facility] [address] [place], [address] MCH (RBC) [Entitic mass] 27.8 pg Normal 27.0-32.0 [facility] Comment on above: Performed By: #### L 501.2300, L100.0100, L500.4050, L501.5200 ####[facility] [address] [place], [address] MCHC (RBC) [Mass/Vol] 33.6 g/dL Normal 32-36 [facility] Comment on above: Performed By: #### L 501.2300, L100.0100, L500.4050, L501.5200 ####[facility] [address] [place], [address] MCV (RBC) [Entitic vol] 82.7 fL Normal 81-99 [facility] Comment on above: Performed By: #### L 501.2300, L100.0100, L500.4050, L501.5200 ####[facility] [address] [place], [address] Monocytes/100 WBC (Bld) 6.7 % Normal 0-10 [facility] Comment on above: Performed By: #### L 501.2300, L100.0100, L500.4050, L501.5200 ####[facility] [address] [place], [address] Neutrophils/100 WBC (Bld) 66.7 % Normal 47-70 [facility] Comment on above: Performed By: #### L 501.2300, L100.0100, L500.4050, L501.5200 ####[facility] [address] [place], [address] Nucleated RBC (Bld) [#/Vol] 0.3 10*3/uL Normal 0-5 [facility] Comment on above: Performed By: #### L 501.2300, L100.0100, L500.4050, L501.5200 ####[facility] [address] [place], [address] Platelet mean volume (Bld) [Entitic vol] 9.8 fL Normal 6.2-12.0 [facility] Comment on above: Performed By: #### L 501.2300, L100.0100, L500.4050, L501.5200 ####[facility] [address] [place], [address] Platelets (Bld) [#/Vol] 203 10*3/uL Normal 150-450 [facility] Comment on above: Performed By: #### L 501.2300, L100.0100, L500.4050, L501.5200 ####[facility] [address] [place], [address] RBC (Bld) [#/Vol] 4.21 10*6/uL Normal 4.2-5.4 [facility] Comment on above: Performed By: #### L 501.2300, L100.0100, L500.4050, L501.5200 ####[facility] [address] [place], [address] RDW SD 42.4 fl Normal 35.1-43.9 [facility] Comment on above: Performed By: #### L 501.2300, L100.0100, L500.4050, L501.5200 ####[facility] [address] [place], [address] WBC (Bld) [#/Vol] 7.9 10*3/uL Normal 4.4-11.0 [facility] Comment on above: Performed By: #### L 501.2300, L100.0100, L500.4050, L501.5200 ####[facility] [address] [place], [address] Comprehensive Metabolic Prof ilon 08-28-2024 Albumin [Mass/Vol] 3.2 g/dL Low 3.5-5.0 [facility] Comment on above: Performed By: #### L 501.2300, L100.0100, L500.4050, L501.5200 ####[facility] [address] [place], [address] Albumin/Globulin [Mass ratio] 1.1 {ratio} Normal 0.9-2.4 [facility] Comment on above: Performed By: #### L 501.2300, L100.0100, L500.4050, L501.5200 ####[facility] [address] [place], [address] ALK PHOS 115 U/L High 35-104 [facility] Comment on above: Performed By: #### L 501.2300, L100.0100, L500.4050, L501.5200 ####[facility] [address] [place], [address] ALT [Catalytic activity/Vol] 11 U/L Normal <=34 [facility] Comment on above: Performed By: #### L 501.2300, L100.0100, L500.4050, L501.5200 ####[facility] [address] [place], [address] AST [Catalytic activity/Vol] 20 U/L Normal <=31 [facility] Comment on above: Performed By: #### L 501.2300, L100.0100, L500.4050, L501.5200 ####[facility] [address] [place], [address] Bilirubin [Mass/Vol] 0.53 mg/dL Normal 0.00-1.30 [facility] Comment on above: Performed By: #### L 501.2300, L100.0100, L500.4050, L501.5200 ####[facility] [address] [place], [address] BUN/CRE 27.2 RATIO High 10-20 [facility] Comment on above: Performed By: #### L 501.2300, L100.0100, L500.4050, L501.5200 ####[facility] [address] [place], [address] Calcium [Mass/Vol] 9.1 mg/dL Normal 7.6-11.0 [facility] Comment on above: Performed By: #### L 501.2300, L100.0100, L500.4050, L501.5200 ####[facility] [address] [place], [address] Chloride [Moles/Vol] 104 mmol/L Normal 98-108 [facility] Comment on above: Performed By: #### L 501.2300, L100.0100, L500.4050, L501.5200 ####[facility] [address] [place], [address] CO2 [Moles/Vol] 21.5 mmol/L Normal 21.0-32.0 [facility] Comment on above: Performed By: #### L 501.2300, L100.0100, L500.4050, L501.5200 ####[facility] [address] [place], [address] Creatinine [Mass/Vol] 0.71 mg/dL Normal 0.70-1.20 [facility] Comment on above: Performed By: #### L 501.2300, L100.0100, L500.4050, L501.5200 ####[facility] [address] [place], [address] ECRCL 99.53 ml/min Normal 50-250 [facility] Comment on above: Performed By: #### L 501.2300, L100.0100, L500.4050, L501.5200 ####[facility] [address] [place], [address] GAP 10 Normal 5-15 [facility] Comment on above: Performed By: #### L 501.2300, L100.0100, L500.4050, L501.5200 ####[facility] [address] [place], [address] GFR/1.73 sq M.predicted among non-blacks MDRD (S/P/Bld) [Vol rate/Area] 101 mL/min/{1.73_m2} Normal >60 [facility] Comment on above: Result Comment: mL/m in/1.73m2 CKD-EPI Creatinine Equation (2020) Performed By: #### L 501.2300, L100.0100, L500.4050, L501.5200 ####[facility] [address] [place], [address] Globulin (S) [Mass/Vol] 3.0 g/dL Normal 2.2-4.2 [facility] Comment on above: Performed By: #### L 501.2300, L100.0100, L500.4050, L501.5200 ####[facility] [address] [place], [address] Glucose [Mass/Vol] 159 mg/dL High 70-99 [facility] Comment on above: Performed By: #### L 501.2300, L100.0100, L500.4050, L501.5200 ####[facility] [address] [place], [address] Potassium [Moles/Vol] 3.8 mmol/L Normal 3.3-5.1 [facility] Comment on above: Result Comment: Hemo lysis present, Results??could be affected.?? Performed By: #### L 501.2300, L100.0100, L500.4050, L501.5200 ####[facility] [address] [place], [address] Sodium [Moles/Vol] 135 mmol/L Normal 133-145 [facility] Comment on above: Performed By: #### L 501.2300, L100.0100, L500.4050, L501.5200 ####[facility] [address] [place], [address] T PROT 6.3 g/dL Normal 5.9-8.4 [facility] Comment on above: Performed By: #### L 501.2300, L100.0100, L500.4050, L501.5200 ####[facility] [address] [place], [address] Urea nitrogen [Mass/Vol] 19 mg/dL Normal 4-19 [facility] Comment on above: Performed By: #### L 501.2300, L100.0100, L500.4050, L501.5200 ####[facility] [address] [place], [address] Magnesiumon 08-28-2024 Magnesium [Mass/Vol] 2.1 mg/dL Normal 1.5-2.2 [facility] Comment on above: Performed By: #### L 501.2300, L100.0100, L500.4050, L501.5200 ####[facility] [address] [place], [address] No Panel InformationOrdered By: Nicole Trujillo on 08-28-2024 20 U/L <32 [facility] Phosphoruson 08-28-2024 Phosphate [Mass/Vol] 2.7 mg/dL Normal 2.7-4.5 [facility] Comment on above: Performed By: #### L 501.2300, L100.0100, L500.4050, L501.5200 ####[facility] [address] [place], [address] Serum globulin measurementOr dered By: Nicole Trujillo on 08-28-2024 Globulin (S) [Mass/Vol] 3.0 g/dL 2.2-4.2 [facility] Serum globulin measurement 3.0 g/dL 2.2-4.2 [facility] Serum or plasma alanine hamilton otransferase (ALT) measurementOrdered By: Nicole Trujillo on 08-28-2024 ALT [Catalytic activity/Vol] 11 U/L <35 [facility] Serum or plasma albumin xiomara urement (mass/volume)Ordered By: Nicole Trujillo on 08-28-2024 Albumin [Mass/Vol] 3.2 g/dL Low 3.5-5.0 [facility] Serum or plasma albumin/glob ulin mass ratioOrdered By: Nicole Trujillo on 08-28-2024 Albumin/Globulin [Mass ratio] 1.1 {ratio} 0.9-2.4 [facility] Serum or plasma alkaline sabiha sphatase measurementOrdered By: Nicole Trujillo on 08-28-2024 ALP [Catalytic activity/Vol] 115 U/L High 35-104 [facility] Total proteinOrdered By: Jenae Trujillo on 08-28-2024 Protein [Mass/Vol] 6.3 g/dL 5.9-8.4 [facility] Total protein 6.3 g/dL 5.9-8.4 [facility] Activated partial thrombopla stin time (aPTT) in platelet poor plasma by coagulation aOrdered By: Brenda Posadas on 08-27-2024 aPTT Coag (PPP) [Time] 44.8 s High 24.1-36.2 [facility] Ankle Brachial Indexon 08-27 Ankle Brachial Index Normal [facility] Arterial study reportOrdered By: Riccardo Ng on 08-27-2024 Noninvasive arteriosclerosis study report [facility] Work Phone: Basic Metabolic Profile (BMP )on 08-27-2024 BUN/CRE 15.2 RATIO Normal 10-20 [facility] Comment on above: Performed By: #### L 500.2500 ####[facility] [address] [place], [address] Calcium [Mass/Vol] 8.8 mg/dL Normal 7.6-11.0 [facility] Comment on above: Performed By: #### L 500.2500 ####[facility] [address] [place], [address] Chloride [Moles/Vol] 103 mmol/L Normal 98-108 [facility] Comment on above: Performed By: #### L 500.2500 ####[facility] [address] [place], [address] CO2 [Moles/Vol] 24.9 mmol/L Normal 21.0-32.0 [facility] Comment on above: Performed By: #### L 500.2500 ####[facility] [address] [place], [address] Creatinine [Mass/Vol] 0.79 mg/dL Normal 0.70-1.20 [facility] Comment on above: Performed By: #### L 500.2500 ####[facility] [address] [place], [address] ECRCL 89.03 ml/min Normal 50-250 [facility] Comment on above: Performed By: #### L 500.2500 ####[facility] [address] [place], [address] GAP 10 Normal 5-15 [facility] Comment on above: Performed By: #### L 500.2500 ####[facility] [address] [place], [address] GFR/1.73 sq M.predicted among non-blacks MDRD (S/P/Bld) [Vol rate/Area] 89 mL/min/{1.73_m2} Normal >60 [facility] Comment on above: Result Comment: mL/m in/1.73m2 CKD-EPI Creatinine Equation (2020) Performed By: #### L 500.2500 ####[facility] [address] [place], [address] Glucose [Mass/Vol] 274 mg/dL High 70-99 [facility] Comment on above: Performed By: #### L 500.2500 ####[facility] [address] [place], [address] Potassium [Moles/Vol] 2.8 mmol/L Low 3.3-5.1 [facility] Comment on above: Performed By: #### L 500.2500 ####[facility] [address] [place], [address] Sodium [Moles/Vol] 137 mmol/L Normal 133-145 [facility] Comment on above: Performed By: #### L 500.2500 ####[facility] [address] [place], [address] Urea nitrogen [Mass/Vol] 12 mg/dL Normal 4-19 [facility] Comment on above: Performed By: #### L 500.2500 ####[facility] [address] [place], [address] Bedside Glucoseon 08-27-2024 FINGERSTICK GLU 203 mg/dL High 74-106 [facility] Comment on above: Result Comment: TALIA GEMENT OF PATIENT CARE PER NURSING PROTOCOL Performed By: #### L 501.080 ####[facility] [address] [place], [address] FINGERSTICK GLU 205 mg/dL High 74-106 [facility] Comment on above: Result Comment: TALIA GEMENT OF PATIENT CARE PER NURSING PROTOCOL Performed By: #### L 501.080 ####[facility] [address] [place], [address] FINGERSTICK GLU 225 mg/dL High 74-106 [facility] Comment on above: Result Comment: TALIA CHAMBERS OF PATIENT CARE PER NURSING PROTOCOL Performed By: #### L 501.080 ####[facility] [address] [place], [address] CBC W/Diff, Automatedon 08-03 Absolute Lymph 1.77 X10 3/uL Normal 0.83-4.51 [facility] Comment on above: Performed By: #### L 300.3900, L100.0100, L501.9520, L500.4050 ####[facility] [address] [place], [address] Absolute Neut 6.2 X10 3/uL Normal 2.0-7.7 [facility] Comment on above: Performed By: #### L 300.3900, L100.0100, L501.9520, L500.4050 ####[facility] [address] [place], [address] Basophils/100 WBC (Bld) 0.7 % Normal 0-1 [facility] Comment on above: Performed By: #### L 300.3900, L100.0100, L501.9520, L500.4050 ####[facility] [address] [place], [address] Eosinophils/100 WBC (Bld) 1.6 % Normal 0-5 [facility] Comment on above: Performed By: #### L 300.3900, L100.0100, L501.9520, L500.4050 ####[facility] [address] [place], [address] Erythrocyte distribution width (RBC) [Ratio] 13.7 % Normal 11.6-14.6 [facility] Comment on above: Performed By: #### L 300.3900, L100.0100, L501.9520, L500.4050 ####[facility] [address] [place], [address] Hematocrit (Bld) [Volume fraction] 33.8 % Low 37-47 [facility] Comment on above: Performed By: #### L 300.3900, L100.0100, L501.9520, L500.4050 ####[facility] [address] [place], [address] Hemoglobin (Bld) [Mass/Vol] 11.6 g/dL Low 12.0-15.0 [facility] Comment on above: Performed By: #### L 300.3900, L100.0100, L501.9520, L500.4050 ####[facility] [address] [place], [address] IG% 0.300 Normal 0.0-0.9 [facility] Comment on above: Result Comment: IG% - Immature Granulocytes (promyelocytes, myelocytes andmetamyelocytes) > 1% indicates that a LEFT SHIFT is Present. Performed By: #### L 300.3900, L100.0100, L501.9520, L500.4050 ####[facility] [address] [place], [address] Lymphocytes/100 WBC (Bld) 20.6 % Normal 19-41 [facility] Comment on above: Performed By: #### L 300.3900, L100.0100, L501.9520, L500.4050 ####[facility] [address] [place], [address] MCH (RBC) [Entitic mass] 28.2 pg Normal 27.0-32.0 [facility] Comment on above: Performed By: #### L 300.3900, L100.0100, L501.9520, L500.4050 ####[facility] [address] [place], [address] MCHC (RBC) [Mass/Vol] 34.3 g/dL Normal 32-36 [facility] Comment on above: Performed By: #### L 300.3900, L100.0100, L501.9520, L500.4050 ####[facility] [address] [place], [address] MCV (RBC) [Entitic vol] 82.0 fL Normal 81-99 [facility] Comment on above: Performed By: #### L 300.3900, L100.0100, L501.9520, L500.4050 ####[facility] [address] [place], [address] Monocytes/100 WBC (Bld) 4.4 % Normal 0-10 [facility] Comment on above: Performed By: #### L 300.3900, L100.0100, L501.9520, L500.4050 ####[facility] [address] [place], [address] Neutrophils/100 WBC (Bld) 72.4 % High 47-70 [facility] Comment on above: Performed By: #### L 300.3900, L100.0100, L501.9520, L500.4050 ####[facility] [address] [place], [address] Nucleated RBC (Bld) [#/Vol] 0 10*3/uL Normal 0-5 [facility] Comment on above: Performed By: #### L 300.3900, L100.0100, L501.9520, L500.4050 ####[facility] [address] [place], [address] Platelet mean volume (Bld) [Entitic vol] 9.2 fL Normal 6.2-12.0 [facility] Comment on above: Performed By: #### L 300.3900, L100.0100, L501.9520, L500.4050 ####[facility] [address] [place], [address] Platelets (Bld) [#/Vol] 229 10*3/uL Normal 150-450 [facility] Comment on above: Performed By: #### L 300.3900, L100.0100, L501.9520, L500.4050 ####[facility] [address] [place], [address] RBC (Bld) [#/Vol] 4.12 10*6/uL Low 4.2-5.4 [facility] Comment on above: Performed By: #### L 300.3900, L100.0100, L501.9520, L500.4050 ####[facility] [address] [place], [address] RDW SD 40.4 fl Normal 35.1-43.9 [facility] Comment on above: Performed By: #### L 300.3900, L100.0100, L501.9520, L500.4050 ####[facility] [address] [place], [address] WBC (Bld) [#/Vol] 8.6 10*3/uL Normal 4.4-11.0 [facility] Comment on above: Performed By: #### L 300.3900, L100.0100, L501.9520, L500.4050 ####[facility] [address] [place], [address] Comprehensive Metabolic Prof ilon 08-27-2024 Albumin [Mass/Vol] 3.1 g/dL Low 3.5-5.0 [facility] Comment on above: Performed By: #### L 300.3900, L100.0100, L501.9520, L500.4050 ####[facility] [address] [place], [address] Albumin/Globulin [Mass ratio] 1.1 {ratio} Normal 0.9-2.4 [facility] Comment on above: Performed By: #### L 300.3900, L100.0100, L501.9520, L500.4050 ####[facility] [address] [place], [address] ALK PHOS 117 U/L High 35-104 [facility] Comment on above: Performed By: #### L 300.3900, L100.0100, L501.9520, L500.4050 ####[facility] [address] [place], [address] ALT [Catalytic activity/Vol] 13 U/L Normal <=34 [facility] Comment on above: Performed By: #### L 300.3900, L100.0100, L501.9520, L500.4050 ####[facility] [address] [place], [address] AST [Catalytic activity/Vol] 20 U/L Normal <=31 [facility] Comment on above: Performed By: #### L 300.3900, L100.0100, L501.9520, L500.4050 ####[facility] [address] [place], [address] Bilirubin [Mass/Vol] 0.61 mg/dL Normal 0.00-1.30 [facility] Comment on above: Performed By: #### L 300.3900, L100.0100, L501.9520, L500.4050 ####[facility] [address] [place], [address] BUN/CRE 16.7 RATIO Normal 10-20 [facility] Comment on above: Performed By: #### L 300.3900, L100.0100, L501.9520, L500.4050 ####[facility] [address] [place], [address] Calcium [Mass/Vol] 8.8 mg/dL Normal 7.6-11.0 [facility] Comment on above: Performed By: #### L 300.3900, L100.0100, L501.9520, L500.4050 ####[facility] [address] [place], [address] Chloride [Moles/Vol] 102 mmol/L Normal 98-108 [facility] Comment on above: Performed By: #### L 300.3900, L100.0100, L501.9520, L500.4050 ####[facility] [address] [place], [address] CO2 [Moles/Vol] 23.8 mmol/L Normal 21.0-32.0 [facility] Comment on above: Performed By: #### L 300.3900, L100.0100, L501.9520, L500.4050 ####[facility] [address] [place], [address] Creatinine [Mass/Vol] 0.65 mg/dL Low 0.70-1.20 [facility] Comment on above: Performed By: #### L 300.3900, L100.0100, L501.9520, L500.4050 ####[facility] [address] [place], [address] ECRCL 107.70 ml/min Normal 50-250 [facility] Comment on above: Performed By: #### L 300.3900, L100.0100, L501.9520, L500.4050 ####[facility] [address] [place], [address] GAP 9 Normal 5-15 [facility] Comment on above: Performed By: #### L 300.3900, L100.0100, L501.9520, L500.4050 ####[facility] [address] [place], [address] GFR/1.73 sq M.predicted among non-blacks MDRD (S/P/Bld) [Vol rate/Area] 105 mL/min/{1.73_m2} Normal >60 [facility] Comment on above: Result Comment: mL/m in/1.73m2 CKD-EPI Creatinine Equation (2020) Performed By: #### L 300.3900, L100.0100, L501.9520, L500.4050 ####[facility] [address] [place], [address] Globulin (S) [Mass/Vol] 2.9 g/dL Normal 2.2-4.2 [facility] Comment on above: Performed By: #### L 300.3900, L100.0100, L501.9520, L500.4050 ####[facility] [address] [place], [address] Glucose [Mass/Vol] 293 mg/dL High 70-99 [facility] Comment on above: Performed By: #### L 300.3900, L100.0100, L501.9520, L500.4050 ####[facility] [address] [place], [address] Potassium [Moles/Vol] 2.5 mmol/L Invalid Interpretation Code 3.3-5.1 [facility] Comment on above: Result Comment: Crit ical Result(s) Called at:0352 by:??MARTITA FARLEY Results read back by same. Performed By: #### L 300.3900, L100.0100, L501.9520, L500.4050 ####[facility] [address] [place], [address] Sodium [Moles/Vol] 136 mmol/L Normal 133-145 [facility] Comment on above: Performed By: #### L 300.3900, L100.0100, L501.9520, L500.4050 ####[facility] [address] [place], [address] T PROT 5.9 g/dL Normal 5.9-8.4 [facility] Comment on above: Performed By: #### L 300.3900, L100.0100, L501.9520, L500.4050 ####[facility] [address] [place], [address] Urea nitrogen [Mass/Vol] 11 mg/dL Normal 4-19 [facility] Comment on above: Performed By: #### L 300.3900, L100.0100, L501.9520, L500.4050 ####[facility] [address] [place], [address] Consultation - Surgicalon Consultation - Surgical Normal [facility] Electrocardiogram reportOrde red By: Alli Brito on 08-27-2024 EKG study [facility] Work Phone: International normalized rat io (INR) calculationOrdered By: Brenda Posadas on 08-27-2024 International normalized ratio (INR) calculation 1.0 [facility] Magnetic resonance imaging r eportOrdered By: Latricia Vargas on 08-27-2024 Study report [facility] Partial Thromboplast Timeon 08-27-2024 aPTT Coag (Bld) [Time] 44.8 s High 24.1-36.2 [facility] Comment on above: Performed By: #### L 300.4310 ####[facility] [address] [place], [address] aPTT Coag (Bld) [Time] 79.3 s High 24.1-36.2 [facility] Comment on above: Performed By: #### L 300.4310 ####[facility] [address] [place], [address] Prothrombin Time w/INRon INR Coag (PPP) [Relative time] 1.0 {INR} Normal [facility] Comment on above: Performed By: #### L 300.3900, L100.0100, L501.9520, L500.4050 ####[facility] [address] [place], [address] PT Coag (PPP) [Time] 13.2 s Normal 11.7-14.9 [facility] Comment on above: Performed By: #### L 300.3900, L100.0100, L501.9520, L500.4050 ####[facility] [address] [place], [address] Prothrombin timeOrdered By: Brenda Posadas on 08-27-2024 PT Coag (PPP) [Time] 13.2 s 11.7-14.9 [facility] Prothrombin time 13.2 SECONDS 11.7-14.9 [facility] Spine Lumbar (Routine)on Spine Lumbar (Routine) Normal [facility] TSH DL <= 0.005 mIU/L QnOrde red By: Brenda Posadas on 08-27-2024 TSH Qn 1.180 uIU/mL 0.300-4.20 0 [facility] Serum or plasma thyroid stimulating hormone (TSH) measurement by high sensitivity met 1.180 uIU/mL 0.300-4.20 0 [facility] Thyroid Stim Hormone (TSH)on 08-27-2024 TSH 1.180 uIU/mL Normal 0.300-4.20 0 [facility] Comment on above: Performed By: #### L 300.3900, L100.0100, L501.9520, L500.4050 ####[facility] [address] [place], [address] aPTT Coag (PPP) [Time]Ordere d By: Brenda Posadas on 08-27-2024 Activated partial thromboplastin time (aPTT) in platelet poor plasma by coagulation a 44.8 Seconds High 24.1-36.2 [facility] 12 Lead EKGon 08-26-2024 12 Lead EKG Normal [facility] ALP [Catalytic activity/Vol] Ordered By: Jeison Abrams on 08-26-2024 Serum or plasma alkaline phosphatase measurement 134 U/L High 35-104 [facility] ALT [Catalytic activity/Vol] Ordered By: Jeison Abrams on 08-26-2024 Serum or plasma alanine aminotransferase (ALT) measurement 14 U/L <35 [facility] Absolute neutrophil countOrd ered By: Jeison Abrams on 08-26-2024 Absolute neutrophil count 5.2 X10^3/uL 2.0-7.7 [facility] Albumin [Mass/Vol]Ordered By : Jeison Abrams on 08-26-2024 Serum or plasma albumin measurement (mass/volume) 3.6 g/dL 3.5-5.0 [facility] Anion gap [Moles/Vol]Ordered By: Jeison Abrams on 08-26-2024 Anion gap in Serum or Plasma 11 5-15 [facility] BUN/creatinine ratioOrdered By: Jeison Abrams on 08-26-2024 BUN/creatinine ratio 14.1 RATIO 10-20 [facility] Basic Metabolic Profile (BMP )on 08-26-2024 BUN/CRE 14.1 RATIO Normal 10-20 [facility] Comment on above: Performed By: #### L 300.3900, L503.7505, L500.2500, L100.0100, L300.4310, L503.6005, L500.3400 ####[facility] [address] [place], [place], [address] Calcium [Mass/Vol] 9.2 mg/dL Normal 7.6-11.0 [facility] Comment on above: Performed By: #### L 300.3900, L503.7505, L500.2500, L100.0100, L300.4310, L503.6005, L500.3400 ####[facility] [address] [place], [address] Chloride [Moles/Vol] 102 mmol/L Normal 98-108 [facility] Comment on above: Performed By: #### L 300.3900, L503.7505, L500.2500, L100.0100, L300.4310, L503.6005, L500.3400 ####[facility] [address] [place], [address] CO2 [Moles/Vol] 22.3 mmol/L Normal 21.0-32.0 [facility] Comment on above: Performed By: #### L 300.3900, L503.7505, L500.2500, L100.0100, L300.4310, L503.6005, L500.3400 ####[facility] [address] [place], [address] Creatinine [Mass/Vol] 0.74 mg/dL Normal 0.70-1.20 [facility] Comment on above: Performed By: #### L 300.3900, L503.7505, L500.2500, L100.0100, L300.4310, L503.6005, L500.3400 ####[facility] [address] [place], [address] ECRCL 97.71 ml/min Normal 50-250 [facility] Comment on above: Performed By: #### L 300.3900, L503.7505, L500.2500, L100.0100, L300.4310, L503.6005, L500.3400 ####[facility] [address] [place], [address] GAP 11 Normal 5-15 [facility] Comment on above: Performed By: #### L 300.3900, L503.7505, L500.2500, L100.0100, L300.4310, L503.6005, L500.3400 ####[facility] [address] [place], [address] GFR/1.73 sq M.predicted among non-blacks MDRD (S/P/Bld) [Vol rate/Area] 97 mL/min/{1.73_m2} Normal >60 [facility] Comment on above: Result Comment: mL/m in/1.73m2 CKD-EPI Creatinine Equation (2020) Performed By: #### L 300.3900, L503.7505, L500.2500, L100.0100, L300.4310, L503.6005, L500.3400 ####[facility] [address] [place], [address] Glucose [Mass/Vol] 315 mg/dL High 70-99 [facility] Comment on above: Performed By: #### L 300.3900, L503.7505, L500.2500, L100.0100, L300.4310, L503.6005, L500.3400 ####[facility] [address] [place], [address] Potassium [Moles/Vol] 3.4 mmol/L Normal 3.3-5.1 [facility] Comment on above: Result Comment: Hemo lysis present, Results??could be affected.?? Performed By: #### L 300.3900, L503.7505, L500.2500, L100.0100, L300.4310, L503.6005, L500.3400 ####[facility] [address] [place], [address] Sodium [Moles/Vol] 135 mmol/L Normal 133-145 [facility] Comment on above: Performed By: #### L 300.3900, L503.7505, L500.2500, L100.0100, L300.4310, L503.6005, L500.3400 ####[facility] [address] [place], [address] Urea nitrogen [Mass/Vol] 10 mg/dL Normal 4-19 [facility] Comment on above: Performed By: #### L 300.3900, L503.7505, L500.2500, L100.0100, L300.4310, L503.6005, L500.3400 ####[facility] [address] [place], [address] Basophil percentageOrdered B y: Jeison Abrams on 08-26-2024 Basophil percentage 0.7 % 0-1 [facility] Bedside Glucoseon 08-26-2024 FINGERSTICK GLU 193 mg/dL High 74-106 [facility] Comment on above: Result Comment: TALIA CHAMBERS OF PATIENT CARE PER NURSING PROTOCOL Performed By: #### L 501.080 ####[facility] [address] [place], [address] Bilirubin directOrdered By: Jeison Abrams on 08-26-2024 Bilirubin.direct [Mass/Vol] 0.08 mg/dL 0.00-0.30 [facility] Bilirubin, totalOrdered By: Jeison Abrams on 08-26-2024 Bilirubin, total 0.52 mg/dL 0.00-1.30 [facility] Bilirubin.direct [Mass/Vol]O rdered By: Jeison Abrams on 08-26-2024 Bilirubin direct 0.08 mg/dL 0.00-0.30 [facility] CBC W/Diff, Automatedon 08-03 Absolute Lymph 1.57 X10 3/uL Normal 0.83-4.51 [facility] Comment on above: Performed By: #### L 300.3900, L503.7505, L500.2500, L100.0100, L300.4310, L503.6005, L500.3400 ####[facility] [address] [place], [address](310) Absolute Neut 5.2 X10 3/uL Normal 2.0-7.7 [facility] Comment on above: Performed By: #### L 300.3900, L503.7505, L500.2500, L100.0100, L300.4310, L503.6005, L500.3400 ####[facility] [address] [place], [address] Basophils/100 WBC (Bld) 0.7 % Normal 0-1 [facility] Comment on above: Performed By: #### L 300.3900, L503.7505, L500.2500, L100.0100, L300.4310, L503.6005, L500.3400 ####[facility] [address] [place], [address] Eosinophils/100 WBC (Bld) 2.8 % Normal 0-5 [facility] Comment on above: Performed By: #### L 300.3900, L503.7505, L500.2500, L100.0100, L300.4310, L503.6005, L500.3400 ####[facility] [address] [place], [address] Erythrocyte distribution width (RBC) [Ratio] 13.6 % Normal 11.6-14.6 [facility] Comment on above: Performed By: #### L 300.3900, L503.7505, L500.2500, L100.0100, L300.4310, L503.6005, L500.3400 ####[facility] [address] [place], [address] Hematocrit (Bld) [Volume fraction] 40.6 % Normal 37-47 [facility] Comment on above: Performed By: #### L 300.3900, L503.7505, L500.2500, L100.0100, L300.4310, L503.6005, L500.3400 ####[facility] [address] [place], [address] Hemoglobin (Bld) [Mass/Vol] 13.7 g/dL Normal 12.0-15.0 [facility] Comment on above: Performed By: #### L 300.3900, L503.7505, L500.2500, L100.0100, L300.4310, L503.6005, L500.3400 ####[facility] [address] [place], [address] IG% 0.300 Normal 0.0-0.9 [facility] Comment on above: Result Comment: IG% - Immature Granulocytes (promyelocytes, myelocytes andmetamyelocytes) > 1% indicates that a LEFT SHIFT is Present. Performed By: #### L 300.3900, L503.7505, L500.2500, L100.0100, L300.4310, L503.6005, L500.3400 ####[facility] [address] [place], [address] Lymphocytes/100 WBC (Bld) 20.9 % Normal 19-41 [facility] Comment on above: Performed By: #### L 300.3900, L503.7505, L500.2500, L100.0100, L300.4310, L503.6005, L500.3400 ####[facility] [address], [address] MCH (RBC) [Entitic mass] 27.8 pg Normal 27.0-32.0 [facility] Comment on above: Performed By: #### L 300.3900, L503.7505, L500.2500, L100.0100, L300.4310, L503.6005, L500.3400 ####[facility] [address] [place], [address] MCHC (RBC) [Mass/Vol] 33.7 g/dL Normal 32-36 [facility] Comment on above: Performed By: #### L 300.3900, L503.7505, L500.2500, L100.0100, L300.4310, L503.6005, L500.3400 ####[facility] [address] [place], [address] MCV (RBC) [Entitic vol] 82.4 fL Normal 81-99 [facility] Comment on above: Performed By: #### L 300.3900, L503.7505, L500.2500, L100.0100, L300.4310, L503.6005, L500.3400 ####[facility] [address] [place], [address] Monocytes/100 WBC (Bld) 5.7 % Normal 0-10 [facility] Comment on above: Performed By: #### L 300.3900, L503.7505, L500.2500, L100.0100, L300.4310, L503.6005, L500.3400 ####[facility] [address] [place], [address] Neutrophils/100 WBC (Bld) 69.6 % Normal 47-70 [facility] Comment on above: Performed By: #### L 300.3900, L503.7505, L500.2500, L100.0100, L300.4310, L503.6005, L500.3400 ####[facility] [address] [place], [address] Nucleated RBC (Bld) [#/Vol] 0 10*3/uL Normal 0-5 [facility] Comment on above: Performed By: #### L 300.3900, L503.7505, L500.2500, L100.0100, L300.4310, L503.6005, L500.3400 ####[facility] [address] [place], [address] Platelet mean volume (Bld) [Entitic vol] 9.1 fL Normal 6.2-12.0 [facility] Comment on above: Performed By: #### L 300.3900, L503.7505, L500.2500, L100.0100, L300.4310, L503.6005, L500.3400 ####[facility] [address] [place], [address] Platelets (Bld) [#/Vol] 225 10*3/uL Normal 150-450 [facility] Comment on above: Performed By: #### L 300.3900, L503.7505, L500.2500, L100.0100, L300.4310, L503.6005, L500.3400 ####[facility] [address] [place], [address] RBC (Bld) [#/Vol] 4.93 10*6/uL Normal 4.2-5.4 [facility] Comment on above: Performed By: #### L 300.3900, L503.7505, L500.2500, L100.0100, L300.4310, L503.6005, L500.3400 ####[facility] [address] [place], [address] RDW SD 40.2 fl Normal 35.1-43.9 [facility] Comment on above: Performed By: #### L 300.3900, L503.7505, L500.2500, L100.0100, L300.4310, L503.6005, L500.3400 ####[facility] [address] [place], [address] WBC (Bld) [#/Vol] 7.5 10*3/uL Normal 4.4-11.0 [facility] Comment on above: Performed By: #### L 300.3900, L503.7505, L500.2500, L100.0100, L300.4310, L503.6005, L500.3400 ####[facility] [address] [place], [address] CTA LWR EXTR W/O W/DYEon CTA LWR EXTR W/O W/DYE Normal [facility] Calcium [Mass/Vol]Ordered By : Jeison Abrams on 08-26-2024 Serum or plasma calcium measurement (mass/volume) 9.2 mg/dL 7.6-11.0 [facility] Carbon dioxide, total [Moles /volume] in Central venous bloodOrdered By: Jeison Abrams on 08-26-2024 Carbon dioxide, total [Moles/volume] in Central venous blood 22.3 mmol/L 21.0-32.0 [facility] Chest 1 View (Portable)on Chest 1 View (Portable) Normal [facility] Chloride assayOrdered By: Tristan Abrams on 08-26-2024 Chloride assay 102 mmol/L 98-108 [facility] Creatinine [Mass/Vol]Ordered By: Jeison Abrams on 08-26-2024 Serum creatinine measurement (mass/volume) 0.74 mg/dL 0.70-1.20 [facility] Emergency Department Summary on 08-26-2024 Emergency Department Summary Normal [facility] Eosinophil percentageOrdered By: Jeison Abrams on 08-26-2024 Eosinophil percentage 2.8 % 0-5 [facility] Erythrocyte distribution wid th (RBC) [Entitic vol]Ordered By: Jeison Abrams on 08-26-2024 Erythrocyte distribution width standard deviation 40.2 fl 35.1-43.9 [facility] Erythrocyte distribution wid th (RBC) [Ratio]Ordered By: Jeison Abrams on 08-26-2024 Erythrocyte distribution width ratio 13.6 % 11.6-14.6 [facility] Estimation of creatinine sylvain aranceOrdered By: Jeison Abrams on 08-26-2024 Estimation of creatinine clearance 97.71 ml/min 50-250 [facility] GFR/1.73 sq M.predicted estephanie g non-blacks MDRD (S/P/Bld) [Vol rate/Area]Ordered By: Jeison Abrams on 08-26-2024 Glomerular filtration rate (GFR) estimation/1.73 sq m using serum, plasma, or whole b 97 >60 [facility] Glucose [Mass/Vol]Ordered By : Jeison Abrams on 08-26-2024 Serum glucose measurement (mass/volume) 315 mg/dL High 70-99 [facility] H AND P Exam - Hospitaliston 08-26-2024 H&P Exam - Hospitalist Normal [facility] Hematocrit Auto (Bld) [Volum e fraction]Ordered By: Jeison Abrams on 08-26-2024 Automated blood hematocrit (percentage) 40.6 % 37-47 [facility] Hemoglobin measurementOrdere d By: Jeison Abrams on 08-26-2024 Hemoglobin measurement 13.7 g/dL 12.0-15.0 [facility] Immature granulocytes/100 WB C Auto (Bld)Ordered By: Jeison Abrams on 08-26-2024 Automated immature granulocyte percentage 0.300 % 0.0-0.9 [facility] International normalized rat io (INR) calculationOrdered By: Vaughn Daugherty on 08-26-2024 International normalized ratio (INR) calculation 1.0 [facility] L503.7505on 08-26-2024 Natriuretic peptide B (Bld) [Mass/Vol] 1489 pg/mL High <=900 [facility] Comment on above: Result Comment: Hear t Failure Unlikely: < 300 pg/mLHeart Failure Likely< 50 Years: > 450 pg/mL50-75 Years: > 900 pg/mL>75 Years: > 1800 pg/mL Performed By: #### L 300.3900, L503.7505, L500.2500, L100.0100, L300.4310, L503.6005, L500.3400 ####[facility] [address] [place], [place], [id number] Lactic Acidon 08-26-2024 Lactate [Moles/Vol] 1.5 mmol/L Normal 0.0-2.0 [facility] Comment on above: Order Comment: Y Performed By: #### L 300.3900, L503.7505, L500.2500, L100.0100, L300.4310, L503.6005, L500.3400 ####[facility] [address] [place], [address] Lactic acid measurementOrder ed By: Jeison Abrams on 08-26-2024 Lactic acid measurement 1.5 mmol/L 0.0-2.0 [facility] Liver Profileon 08-26-2024 Albumin [Mass/Vol] 3.6 g/dL Normal 3.5-5.0 [facility] Comment on above: Performed By: #### L 300.3900, L503.7505, L500.2500, L100.0100, L300.4310, L503.6005, L500.3400 ####[facility] [address] [place], [place], [id number] ALK PHOS 134 U/L High 35-104 [facility] Comment on above: Performed By: #### L 300.3900, L503.7505, L500.2500, L100.0100, L300.4310, L503.6005, L500.3400 ####[facility] [address] [place], [place], [phone] ALT [Catalytic activity/Vol] 14 U/L Normal <=34 [facility] Comment on above: Performed By: #### L 300.3900, L503.7505, L500.2500, L100.0100, L300.4310, L503.6005, L500.3400 ####[facility] [address] [place], [place], [id number] AST [Catalytic activity/Vol] 27 U/L Normal <=31 [facility] Comment on above: Result Comment: Hemo lysis present, Results??could be affected.?? Performed By: #### L 300.3900, L503.7505, L500.2500, L100.0100, L300.4310, L503.6005, L500.3400 ####[facility] [address] [place], [place], [address] Bilirubin [Mass/Vol] 0.52 mg/dL Normal 0.00-1.30 [facility] Comment on above: Performed By: #### L 300.3900, L503.7505, L500.2500, L100.0100, L300.4310, L503.6005, L500.3400 ####[facility] [address] [place], [address] Bilirubin.direct [Mass/Vol] 0.08 mg/dL Normal 0.00-0.30 [facility] Comment on above: Result Comment: Hemo lysis present, Results??could be affected.?? Performed By: #### L 300.3900, L503.7505, L500.2500, L100.0100, L300.4310, L503.6005, L500.3400 ####[facility] [address] [place], [address] Globulin (S) [Mass/Vol] 3.4 g/dL Normal 2.2-4.2 [facility] Comment on above: Performed By: #### L 300.3900, L503.7505, L500.2500, L100.0100, L300.4310, L503.6005, L500.3400 ####[facility] [id number], [address] T PROT 7.0 g/dL Normal 5.9-8.4 [facility] Comment on above: Performed By: #### L 300.3900, L503.7505, L500.2500, L100.0100, L300.4310, L503.6005, L500.3400 ####[facility] [address] [place], [address] Lymphocytes Auto (Unsp spec) [#/Vol]Ordered By: Jeison Abrams on 08-26-2024 Absolute lymphocyte count 1.57 X10^3/uL 0.83-4.51 [facility] Lymphocytes/100 WBC Auto (Un sp spec)Ordered By: Jeison Abrams on 08-26-2024 Automated lymphocyte count as percentage of total leukocytes 20.9 % 19-41 [facility] MCV (RBC) [Entitic vol]Order ed By: Jeison Abrams on 08-26-2024 MCV (mean corpuscular volume) determination 82.4 fL 81-99 [facility] Mean corpuscular hemoglobin (MCH) determinationOrdered By: Jeison Abrams on 08-26-2024 Mean corpuscular hemoglobin (MCH) determination 27.8 pg 27.0-32.0 [facility] Mean corpuscular hemoglobin concentration (MCHC) determinationOrdered By: Jeison Abrams on 08-26-2024 Mean corpuscular hemoglobin concentration (MCHC) determination 33.7 g/dL 32-36 [facility] Mean platelet volume determi nationOrdered By: Jeison Abrams on 08-26-2024 Mean platelet volume determination 9.1 fl 6.2-12.0 [facility] Monocyte percentageOrdered B y: Jeison Abrams on 08-26-2024 Monocyte percentage 5.7 % 0-10 [facility] Neutrophil percentageOrdered By: Jeison Abrams on 08-26-2024 Neutrophil percentage 69.6 % 47-70 [facility] No Panel InformationOrdered By: Jeison Abrams on 08-26-2024 27 U/L <32 [facility] 1489 pg/mL High <900 [facility] Nucleated red blood cell per centageOrdered By: Jeison Abrams on 08-26-2024 Nucleated red blood cell percentage 0 % 0-5 [facility] Partial Thromboplast Timeon 08-26-2024 aPTT Coag (Bld) [Time] 26.5 s Normal 24.1-36.2 [facility] Comment on above: Performed By: #### L 300.4310, L300.3900 ####[facility] [address] [place], [address] aPTT Coag (Bld) [Time] 26.8 s Normal 24.1-36.2 [facility] Comment on above: Performed By: #### L 300.3900, L503.7505, L500.2500, L100.0100, L300.4310, L503.6005, L500.3400 ####[facility] [address] [place], [address] Platelet countOrdered By: Tristan Abrams on 08-26-2024 Platelet count 225 K/mm3 150-450 [facility] Potassium (Unsp spec) [Mass/ Vol]Ordered By: Jeison Abrams on 08-26-2024 Potassium measurement (mass/volume) 3.4 mmol/L 3.3-5.1 [facility] Prothrombin Time w/INRon INR Coag (PPP) [Relative time] 1.0 {INR} Normal [facility] Comment on above: Performed By: #### L 300.4310, L300.3900 ####[facility] [address] [place], [address] PT Coag (PPP) [Time] 12.8 s Normal 11.7-14.9 [facility] Comment on above: Performed By: #### L 300.4310, L300.3900 ####[facility] [address] [place], [address] INR Coag (PPP) [Relative time] 0.9 {INR} Normal [facility] Comment on above: Performed By: #### L 300.3900, L503.7505, L500.2500, L100.0100, L300.4310, L503.6005, L500.3400 ####[facility] [address] [place], [address] PT Coag (PPP) [Time] 12.3 s Normal 11.7-14.9 [facility] Comment on above: Performed By: #### L 300.3900, L503.7505, L500.2500, L100.0100, L300.4310, L503.6005, L500.3400 ####[facility] [address] [place], [address] Prothrombin timeOrdered By: Vaughn Daugherty on 08-26-2024 Prothrombin time 12.8 SECONDS 11.7-14.9 [facility] RBC Auto (Bld) [#/Vol]Ordere d By: Jeison Abrams on 08-26-2024 Automated blood erythrocyte count 4.93 M/mm3 4.2-5.4 [facility] Serum globulin measurementOr dered By: Jeison Abrams on 08-26-2024 Serum globulin measurement 3.4 g/dL 2.2-4.2 [facility] Sodium levelOrdered By: Sj Abrams on 08-26-2024 Sodium level 135 mmol/L 133-145 [facility] Total proteinOrdered By: Gualberto Abrams on 08-26-2024 Total protein 7.0 g/dL 5.9-8.4 [facility] Urea nitrogen [Mass/Vol]Orde red By: Jeison Abrams on 08-26-2024 Serum or plasma urea nitrogen measurement (mass/volume) 10 mg/dL 4-19 [facility] Venous Duplex US, Unilateral on 08-26-2024 Venous Duplex US, Unilateral Normal [facility] Venous duplex ultrasound rep ortOrdered By: Riccardo Ng on 08-26-2024 US Vein [facility] Work Phone: White blood cell (WBC) count Ordered By: Jeison Abrams on 08-26-2024 White blood cell (WBC) count 7.5 K/mm3 4.4-11.0 [facility] aPTT Coag (PPP) [Time]Ordere d By: Vaughn Daugherty on 08-26-2024 Activated partial thromboplastin time (aPTT) in platelet poor plasma by coagulation a 26.5 Seconds 24.1-36.2 [facility] Urine Cultureon 08-04-2024 URC Normal [facility] Comment on above: Performed By: #### M 100.4158 ####[facility] [address] [place], [address] ALP [Catalytic activity/Vol] Ordered By: Riccardo Hillman on 08-01-2024 Serum or plasma alkaline phosphatase measurement 162 U/L High 35-104 [facility] ALT [Catalytic activity/Vol] Ordered By: Riccardo Hillman on 08-01-2024 Serum or plasma alanine aminotransferase (ALT) measurement 12 U/L <35 [facility] Abdomen/Pelvis W IV Cont ONL Yon 08-01-2024 Abdomen/Pelvis W IV Cont ONLY Normal [facility] Absolute neutrophil countOrd ered By: Riccardo Hillman on 08-01-2024 Absolute neutrophil count 11.1 X10^3/uL High 2.0-7.7 [facility] Acetone Serumon 08-01-2024 ACETONE SERUM Negative Normal NEG [facility] Comment on above: Performed By: #### L 501.6900 ####[facility] [address] [place], [address] Acetone [Mass/Vol]Ordered By : Riccardo Hillman on 08-01-2024 Serum acetone measurement Negative NEG [facility] Albumin [Mass/Vol]Ordered By : Riccardo Hillman on 08-01-2024 Serum or plasma albumin measurement (mass/volume) 4.2 g/dL 3.5-5.0 [facility] Albumin/Globulin [Mass ratio ]Ordered By: Riccardo Hillman on 08-01-2024 Serum or plasma albumin/globulin mass ratio 1.0 RATIO 0.9-2.4 [facility] Anion gap [Moles/Vol]Ordered By: Riccardo Hillman on 08-01-2024 Serum or plasma anion gap determination (moles/volume) 17 High 5-15 [facility] BUN/creatinine ratioOrdered By: Riccardo Hillman on 08-01-2024 BUN/creatinine ratio 11.8 RATIO 10-20 [facility] Bacteria LM.HPF (Urine sed) [#/Area]Ordered By: Riccardo Hillman on 08-01-2024 Urine sediment bacteria count by microscopy (number/high power field) 4+ /hpf None Seen [facility] Basophil percentageOrdered B y: Riccardo Hillman on 08-01-2024 Basophil percentage 0.5 % 0-1 [facility] Bedside Glucoseon 08-01-2024 FINGERSTICK GLU 225 mg/dL High 74-106 [facility] Comment on above: Result Comment: TALIA CHAMBERS OF PATIENT CARE PER NURSING PROTOCOL Performed By: #### L 501.080 ####[facility] [address] [place], [address] Bilirubin, totalOrdered By: Riccardo Hillman on 08-01-2024 Bilirubin, total 1.23 mg/dL 0.00-1.30 [facility] CBC W/Diff, Automatedon 07-06 Absolute Lymph 1.55 X10 3/uL Normal 0.83-4.51 [facility] Comment on above: Performed By: #### L 501.2450, L500.4050, L100.0100 ####[facility] [address] [place], [address] Absolute Neut 11.1 X10 3/uL High 2.0-7.7 [facility] Comment on above: Performed By: #### L 501.2450, L500.4050, L100.0100 ####[facility] [address] [place], [address] Basophils/100 WBC (Bld) 0.5 % Normal 0-1 [facility] Comment on above: Performed By: #### L 501.2450, L500.4050, L100.0100 ####[facility] [address] [place], [address] Eosinophils/100 WBC (Bld) 0.2 % Normal 0-5 [facility] Comment on above: Performed By: #### L 501.2450, L500.4050, L100.0100 ####[facility] [address] [place], [address] Erythrocyte distribution width (RBC) [Ratio] 14.1 % Normal 11.6-14.6 [facility] Comment on above: Performed By: #### L 501.2450, L500.4050, L100.0100 ####[facility] [address] [place], [address] Hematocrit (Bld) [Volume fraction] 40.8 % Normal 37-47 [facility] Comment on above: Performed By: #### L 501.2450, L500.4050, L100.0100 ####[facility] [address] [place], [address] Hemoglobin (Bld) [Mass/Vol] 13.6 g/dL Normal 12.0-15.0 [facility] Comment on above: Performed By: #### L 501.2450, L500.4050, L100.0100 ####[facility] [address] [place], [address] IG% 0.300 Normal 0.0-0.9 [facility] Comment on above: Result Comment: IG% - Immature Granulocytes (promyelocytes, myelocytes andmetamyelocytes) > 1% indicates that a LEFT SHIFT is Present. Performed By: #### L 501.2450, L500.4050, L100.0100 ####[facility] [address] [place], [address] Lymphocytes/100 WBC (Bld) 11.7 % Low 19-41 [facility] Comment on above: Performed By: #### L 501.2450, L500.4050, L100.0100 ####[facility] [address] [place], [address] MCH (RBC) [Entitic mass] 27.7 pg Normal 27.0-32.0 [facility] Comment on above: Performed By: #### L 501.2450, L500.4050, L100.0100 ####[facility] [address] [place], [address] MCHC (RBC) [Mass/Vol] 33.3 g/dL Normal 32-36 [facility] Comment on above: Performed By: #### L 501.2450, L500.4050, L100.0100 ####[facility] [address] [place], [address] MCV (RBC) [Entitic vol] 83.1 fL Normal 81-99 [facility] Comment on above: Performed By: #### L 501.2450, L500.4050, L100.0100 ####[facility] [address] [place], [address] Monocytes/100 WBC (Bld) 3.4 % Normal 0-10 [facility] Comment on above: Performed By: #### L 501.2450, L500.4050, L100.0100 ####[facility] [address] [place], [address] Neutrophils/100 WBC (Bld) 83.9 % High 47-70 [facility] Comment on above: Performed By: #### L 501.2450, L500.4050, L100.0100 ####[facility] [address] [place], [address] Nucleated RBC (Bld) [#/Vol] 0 10*3/uL Normal 0-5 [facility] Comment on above: Performed By: #### L 501.2450, L500.4050, L100.0100 ####[facility] [address] [place], [address] Platelet mean volume (Bld) [Entitic vol] 9.9 fL Normal 6.2-12.0 [facility] Comment on above: Performed By: #### L 501.2450, L500.4050, L100.0100 ####[facility] [address] [place], [address] Platelets (Bld) [#/Vol] 338 10*3/uL Normal 150-450 [facility] Comment on above: Performed By: #### L 501.2450, L500.4050, L100.0100 ####[facility] [address] [place], [address] RBC (Bld) [#/Vol] 4.91 10*6/uL Normal 4.2-5.4 [facility] Comment on above: Performed By: #### L 501.2450, L500.4050, L100.0100 ####[facility] [address] [place], [address] RDW SD 42.2 fl Normal 35.1-43.9 [facility] Comment on above: Performed By: #### L 501.2450, L500.4050, L100.0100 ####[facility] [address] [place], [address] WBC (Bld) [#/Vol] 13.3 10*3/uL High 4.4-11.0 [facility] Comment on above: Performed By: #### L 501.2450, L500.4050, L100.0100 ####[facility] [address] [place], [address] Calcium [Mass/Vol]Ordered By : Riccardo Hillman on 08-01-2024 Serum or plasma calcium measurement (mass/volume) 9.8 mg/dL 7.6-11.0 [facility] Carbon dioxide measurementOr dered By: Riccardo Hillman on 08-01-2024 Carbon dioxide measurement 22.7 mmol/L 22.0-29.0 [facility] Chloride measurementOrdered By: Riccardo Hillman on 08-01-2024 Chloride measurement 93 mmol/L Low 96-108 [facility] Clarity (U)Ordered By: Riccardo Hillman on 08-01-2024 Urine clarity Cloudy Clear [facility] Color (U)Ordered By: Riccardo latham on 08-01-2024 Urine color determination Yellow Yellow [facility] Comprehensive Metabolic Prof ilon 08-01-2024 Albumin [Mass/Vol] 4.2 g/dL Normal 3.5-5.0 [facility] Comment on above: Performed By: #### L 501.2450, L500.4050, L100.0100 ####[facility] [address] [place], [address] Albumin/Globulin [Mass ratio] 1.0 {ratio} Normal 0.9-2.4 [facility] Comment on above: Performed By: #### L 501.2450, L500.4050, L100.0100 ####[facility] [address] [place], [address] ALK PHOS 162 U/L High 35-104 [facility] Comment on above: Performed By: #### L 501.2450, L500.4050, L100.0100 ####[facility] [address] [place], [address] ALT [Catalytic activity/Vol] 12 U/L Normal <=34 [facility] Comment on above: Performed By: #### L 501.2450, L500.4050, L100.0100 ####[facility] [address] [place], [address] Anion gap [Moles/Vol] 17 mmol/L High 5-15 [facility] Comment on above: Performed By: #### L 501.2450, L500.4050, L100.0100 ####[facility] [address] [place], [address] AST [Catalytic activity/Vol] 24 U/L Normal <=31 [facility] Comment on above: Performed By: #### L 501.2450, L500.4050, L100.0100 ####[facility] [address] [place], [address] Bilirubin [Mass/Vol] 1.23 mg/dL Normal 0.00-1.30 [facility] Comment on above: Performed By: #### L 501.2450, L500.4050, L100.0100 ####[facility] [address] [place], [address] BUN/CRE 11.8 RATIO Normal 10-20 [facility] Comment on above: Performed By: #### L 501.2450, L500.4050, L100.0100 ####[facility] [address] [place], [address] Calcium [Mass/Vol] 9.8 mg/dL Normal 7.6-11.0 [facility] Comment on above: Performed By: #### L 501.2450, L500.4050, L100.0100 ####[facility] [address] [place], [address] Chloride [Moles/Vol] 93 mmol/L Low 96-108 [facility] Comment on above: Performed By: #### L 501.2450, L500.4050, L100.0100 ####[facility] [address] [place], [address] CO2 [Moles/Vol] 22.7 mmol/L Normal 22.0-29.0 [facility] Comment on above: Performed By: #### L 501.2450, L500.4050, L100.0100 ####[facility] [address] [place], [address] Creatinine [Mass/Vol] 0.79 mg/dL Normal 0.70-1.20 [facility] Comment on above: Performed By: #### L 501.2450, L500.4050, L100.0100 ####[facility] [address] [place], [address] ECRCL 91.16 ml/min Normal [facility] Comment on above: Performed By: #### L 501.2450, L500.4050, L100.0100 ####[facility] [address] [place], [address] GFR/1.73 sq M.predicted among non-blacks MDRD (S/P/Bld) [Vol rate/Area] 90 mL/min/{1.73_m2} Normal >60 [facility] Comment on above: Result Comment: mL/m in/1.73m2 CKD-EPI Creatinine Equation (2020) Performed By: #### L 501.2450, L500.4050, L100.0100 ####[facility] [address] [place], [address] Globulin (S) [Mass/Vol] 4.0 g/dL Normal 2.2-4.2 [facility] Comment on above: Performed By: #### L 501.2450, L500.4050, L100.0100 ####[facility] [address] [place], [address] Glucose [Mass/Vol] 410 mg/dL High 70-99 [facility] Comment on above: Performed By: #### L 501.2450, L500.4050, L100.0100 ####[facility] [address] [place], [address] Potassium [Moles/Vol] 3.5 mmol/L Normal 3.3-5.1 [facility] Comment on above: Performed By: #### L 501.2450, L500.4050, L100.0100 ####[facility] [address] [place], [address] Sodium [Moles/Vol] 132 mmol/L Low 133-145 [facility] Comment on above: Performed By: #### L 501.2450, L500.4050, L100.0100 ####[facility] [address] [place], [address] T PROT 8.1 g/dL Normal 5.9-8.4 [facility] Comment on above: Performed By: #### L 501.2450, L500.4050, L100.0100 ####[facility] [address] [place], [address] Urea nitrogen [Mass/Vol] 9 mg/dL Normal 4-19 [facility] Comment on above: Performed By: #### L 501.2450, L500.4050, L100.0100 ####[facility] [address] [place], [address] Creatinine [Mass/Vol]Ordered By: Riccardo Hillman on 08-01-2024 Serum creatinine measurement (mass/volume) 0.79 mg/dL 0.70-1.20 [facility] Emergency Department Summary on 08-01-2024 Emergency Department Summary Normal [facility] Eosinophil percentageOrdered By: Riccardo Hillman on 08-01-2024 Eosinophil percentage 0.2 % 0-5 [facility] Erythrocyte distribution wid th (RBC) [Ratio]Ordered By: Riccardo Hillman on 08-01-2024 Erythrocyte distribution width ratio 14.1 % 11.6-14.6 [facility] Erythrocyte distribution wid th standard deviationOrdered By: Riccardo Hillman on 08-01-2024 Erythrocyte distribution width standard deviation 42.2 fl 35.1-43.9 [facility] Estimation of creatinine sylvain aranceOrdered By: Riccardo Hillman on 08-01-2024 Estimation of creatinine clearance 91.16 ml/min [facility] GFR/1.73 sq M.predicted estephanie g non-blacks MDRD (S/P/Bld) [Vol rate/Area]Ordered By: Riccardo Hillman on 08-01-2024 Glomerular filtration rate (GFR) estimation/1.73 sq m using serum, plasma, or whole b 90 >60 [facility] Glucose Ql (U)Ordered By: Bertram Hillman on 08-01-2024 Urine glucose detection 1000 mg/dl High Normal [facility] Glucose [Mass/Vol]Ordered By : Riccardo Hillman on 08-01-2024 Serum glucose measurement (mass/volume) 410 mg/dL High 70-99 [facility] Glucose measurement at bedsi deOrdered By: Riccardo Hillman on 08-01-2024 Glucose measurement at bedside 225 mg/dL High 74-106 [facility] Hematocrit Auto (Bld) [Volum e fraction]Ordered By: Riccardo Hillman on 08-01-2024 Automated blood hematocrit (percentage) 40.8 % 37-47 [facility] Hemoglobin measurementOrdere d By: Riccardo Hillman on 08-01-2024 Hemoglobin measurement 13.6 g/dL 12.0-15.0 [facility] Immature granulocytes/100 WB C Auto (Bld)Ordered By: Riccardo Hillman on 08-01-2024 Automated immature granulocyte percentage 0.300 % 0.0-0.9 [facility] Leukocyte esterase Test stri p Ql (U)Ordered By: Riccardo Hillman on 08-01-2024 Urine leukocyte esterase detection by dipstick 500 /ul High Negative [facility] Lipaseon 08-01-2024 Lipase [Catalytic activity/Vol] 17 U/L Normal 13-75 [facility] Comment on above: Result Comment: Gege edgar note:LIPASE revised reference range effective 22.New Lipase methodology. Expected to produce lower valuesthan the previous assay method.NEW Reference Range: 13 - 75 U/L Performed By: #### L 501.2450, L500.4050, L100.0100 ####[facility] [address] [place], [address] Lipase measurementOrdered By : Riccardo Hillman on 08-01-2024 Lipase measurement 17 U/L 13-75 [facility] Lymphocytes Auto (Unsp spec) [#/Vol]Ordered By: Riccardo Hillman on 08-01-2024 Absolute lymphocyte count 1.55 X10^3/uL 0.83-4.51 [facility] Lymphocytes/100 WBC Auto (Un sp spec)Ordered By: Riccardo Hillman on 08-01-2024 Automated lymphocyte count as percentage of total leukocytes 11.7 % Low 19-41 [facility] MCV (RBC) [Entitic vol]Order ed By: Riccardo Hillman on 08-01-2024 MCV (mean corpuscular volume) determination 83.1 fL 81-99 [facility] Mean corpuscular hemoglobin (MCH) determinationOrdered By: Riccardo Hillman on 08-01-2024 Mean corpuscular hemoglobin (MCH) determination 27.7 pg 27.0-32.0 [facility] Mean corpuscular hemoglobin concentration (MCHC) determinationOrdered By: Riccardo Hillman on 08-01-2024 Mean corpuscular hemoglobin concentration (MCHC) determination 33.3 g/dL 32-36 [facility] Mean platelet volume determi nationOrdered By: Riccardo Hillman on 08-01-2024 Mean platelet volume determination 9.9 fl 6.2-12.0 [facility] Microscopic analysis of urin e for red blood cells (RBC)Ordered By: Riccardo Hillman on 08-01-2024 Microscopic analysis of urine for red blood cells (RBC) 0-5 SEEN /hpf 5-10 [facility] Monocyte percentageOrdered B y: Riccardo Hillman on 08-01-2024 Monocyte percentage 3.4 % 0-10 [facility] Mucus LM Ql (Urine sed)Order ed By: Riccardo Hillman on 08-01-2024 Mucus detection in urine sediment by light microscopy 0 SEEN /hpf [facility] Neutrophil percentageOrdered By: Riccardo Hillman on 08-01-2024 Neutrophil percentage 83.9 % High 47-70 [facility] No Panel InformationOrdered By: Riccardo Hillman on 08-01-2024 24 U/L <32 [facility] Nucleated red blood cell per centageOrdered By: Riccardo Hillman on 08-01-2024 Nucleated red blood cell percentage 0 % 0-5 [facility] Platelet countOrdered By: Bertram Hillman on 08-01-2024 Platelet count 338 K/mm3 150-450 [facility] Potassium [Moles/Vol]Ordered By: Riccardo Hillman on 08-01-2024 Serum or plasma potassium measurement 3.5 mmol/L 3.3-5.1 [facility] Protein Test strip Ql (U)Ord ered By: Riccardo Hillman on 08-01-2024 Urine protein assay by test strip, semi-quantitative 100 mg/dl High Negative [facility] RBC Auto (Bld) [#/Vol]Ordere d By: Riccardo Hillman on 08-01-2024 Automated blood erythrocyte count 4.91 M/mm3 4.2-5.4 [facility] Serum globulin measurementOr dered By: Riccardo Hillman on 08-01-2024 Serum globulin measurement 4.0 g/dL 2.2-4.2 [facility] Sodium [Moles/Vol]Ordered By : Riccardo Hillman on 08-01-2024 Serum or plasma sodium measurement (moles/volume) 132 mmol/L Low 133-145 [facility] Specific gravity (U) [Rel de nsity]Ordered By: Riccardo Hillman on 08-01-2024 Urine specific gravity measurement 1.010 1.002-1.03 0 [facility] Total proteinOrdered By: Guerita Hillman on 08-01-2024 Total protein 8.1 g/dL 5.9-8.4 [facility] Urea nitrogen [Mass/Vol]Orde red By: Riccardo Hillman on 08-01-2024 Serum or plasma urea nitrogen measurement (mass/volume) 9 mg/dL 4-19 [facility] Urinalysis, Completeon 08-01 BACTERIA 4+ /hpf Normal None Seen [facility] Comment on above: Order Comment: LUISA CTOR TO SPECIFY Performed By: #### L 400.0001 ####[facility] [address] [place], [place], [id number] EPI,SQUAMOUS 0-5 SEEN Normal 5-10 [facility] Comment on above: Order Comment: LUISA CTOR TO SPECIFY Performed By: #### L 400.0001 ####[facility] [address] [place], [address] RBC 0-5 SEEN Normal 0-5 [facility] Comment on above: Order Comment: LUISA CTOR TO SPECIFY Performed By: #### L 400.0001 ####[facility] [address] [place], [address] YEAST 1+ /hpf Normal None Seen [facility] Comment on above: Order Comment: LUISA CTOR TO SPECIFY Performed By: #### L 400.0001 ####[facility] [address] [place], [address] WBC 50-100 SEEN Normal 0-5 [facility] Comment on above: Order Comment: LUISA CTOR TO SPECIFY Performed By: #### L 400.0001 ####[facility] [address] [place], [place], [id number] Mucus Ql (Urine sed) 0 SEEN Normal [facility] Comment on above: Order Comment: LUISA CTOR TO SPECIFY Performed By: #### L 400.0001 ####[facility] [address] [place], [place], [id number] Urine blood detectionOrdered By: Riccardo Hillman on 08-01-2024 Urine blood detection 50 /ul High Negative [facility] Urine cultureOrdered By: Guerita Hillman on 08-01-2024 Urine culture ESBL Escherichia coli Abnormal [facility] Urine total bilirubin detect ion by test stripOrdered By: Riccardo Hillman on 08-01-2024 Urine total bilirubin detection by test strip Negative Negative [facility] Urobilinogen Ql (U)Ordered B y: Riccardo Hillman on 08-01-2024 Urine urobilinogen measurement Normal mg/dl Normal [facility] White blood cell (WBC) count Ordered By: Riccardo Hillman on 08-01-2024 White blood cell (WBC) count 13.3 K/mm3 High 4.4-11.0 [facility] White blood cell countOrdere d By: Riccardo Hillman on 08-01-2024 White blood cell count 50-100 SEEN /hpf 0-5 [facility] Yeast LM.HPF (Urine sed) [#/ Area]Ordered By: Riccardo Hillman on 08-01-2024 Urine sediment yeast count by microscopy (number/high powered field) 1+ /hpf None Seen [facility] pH (U)Ordered By: Riccardo rondon on 08-01-2024 Urine pH 6.5 5.0 - 8.0 [facility] Absolute neutrophil countOrd ered By: Nicole Trujillo on 07-03-2024 Absolute neutrophil count 2.6 X10^3/uL 2.0-7.7 [facility] Basic Metabolic Profile (BMP )on 07-03-2024 BUN/CRE 24.4 RATIO High 10-20 [facility] Comment on above: Performed By: #### L 500.2500, L100.0100 ####[facility] [address] [place], [address] CA,Total 8.6 mg/dL Normal 8.5-10.1 [facility] Comment on above: Performed By: #### L 500.2500, L100.0100 ####[facility] [address] [place], [address] Chloride [Moles/Vol] 105 mmol/L Normal 98-107 [facility] Comment on above: Performed By: #### L 500.2500, L100.0100 ####[facility] [address] [place], [address] CO2 [Moles/Vol] 27.0 mmol/L Normal 21.0-32.0 [facility] Comment on above: Performed By: #### L 500.2500, L100.0100 ####[facility] [address] [place], [address] Creatinine [Mass/Vol] 0.61 mg/dL Normal 0.55-1.02 [facility] Comment on above: Result Comment: The validity of the calculated GFR GFRAA in patients over70 years has not been determined. Clinical correlation isessential. Performed By: #### L 500.2500, L100.0100 ####[facility] [address] [place], [address] ECRCL 119.69 ml/min Normal [facility] Comment on above: Performed By: #### L 500.2500, L100.0100 ####[facility] [address] [place], [address] EST GFR - AA 131 mL/min Normal >60 [facility] Comment on above: Result Comment: Afri can [place] GFR Calc Performed By: #### L 500.2500, L100.0100 ####[facility] [address] [place], [address] GAP 5 Normal 5-15 [facility] Comment on above: Performed By: #### L 500.2500, L100.0100 ####[facility] [address] [place], [address] GFR/1.73 sq M.predicted among non-blacks MDRD (S/P/Bld) [Vol rate/Area] 108 mL/min/{1.73_m2} Normal >60 [facility] Comment on above: Result Comment: Non- GFR Calc Performed By: #### L 500.2500, L100.0100 ####[facility] [address] [place], [address] Glucose [Mass/Vol] 163 mg/dL High 74-106 [facility] Comment on above: Result Comment: Fast ing Glucose result greater than or equal to 126 mg/dLsuggests DIABETES MELLITUS per A.D.A. criteria. Performed By: #### L 500.2500, L100.0100 ####[facility] [address] [place], [address] Potassium [Moles/Vol] 3.4 mmol/L Low 3.5-5.1 [facility] Comment on above: Performed By: #### L 500.2500, L100.0100 ####[facility] [address] [place], [address] Sodium [Moles/Vol] 137 mmol/L Normal 136-145 [facility] Comment on above: Performed By: #### L 500.2500, L100.0100 ####[facility] [address] [place], [address] Urea nitrogen [Mass/Vol] 15 mg/dL Normal 7-18 [facility] Comment on above: Performed By: #### L 500.2500, L100.0100 ####[facility] [address] [place], [address] Basophil percentageOrdered B y: Nicole Trujillo on 07-03-2024 Basophil percentage 0.4 % 0-1 [facility] Bedside Glucoseon 07-03-2024 FINGERSTICK GLU 180 mg/dL High 74-106 [facility] Comment on above: Result Comment: TALIA GEMENT OF PATIENT CARE PER NURSING PROTOCOL Performed By: #### L 501.080 ####[facility] [address] [place], [address] FINGERSTICK GLU 137 mg/dL High 74-106 [facility] Comment on above: Result Comment: TALIA GEMENT OF PATIENT CARE PER NURSING PROTOCOL Performed By: #### L 501.080 ####[facility] [address] [place], [address] Blood urea nitrogen (BUN)/cr eatinine ratioOrdered By: Nicole Trujillo on 07-03-2024 Blood urea nitrogen (BUN)/creatinine ratio 24.4 RATIO High 10-20 [facility] CBC W/Diff, Automatedon 06-06 0 Absolute Lymph 1.43 X10 3/uL Normal 0.83-4.51 [facility] Comment on above: Performed By: #### L 500.2500, L100.0100 ####[facility] [address] [place], [address] Absolute Neut 2.6 X10 3/uL Normal 2.0-7.7 [facility] Comment on above: Performed By: #### L 500.2500, L100.0100 ####[facility] [address] [place], [address] Basophils/100 WBC (Bld) 0.4 % Normal 0-1 [facility] Comment on above: Performed By: #### L 500.2500, L100.0100 ####[facility] [address] [place], [address] Eosinophils/100 WBC (Bld) 0.7 % Normal 0-5 [facility] Comment on above: Performed By: #### L 500.2500, L100.0100 ####[facility] [address] [place], [address] Erythrocyte distribution width (RBC) [Ratio] 14.3 % Normal 11.6-14.6 [facility] Comment on above: Performed By: #### L 500.2500, L100.0100 ####[facility] [address] [place], [address] Hematocrit (Bld) [Volume fraction] 32.6 % Low 37-47 [facility] Comment on above: Performed By: #### L 500.2500, L100.0100 ####[facility] [address] [place], [address] Hemoglobin (Bld) [Mass/Vol] 10.8 g/dL Low 12.0-15.0 [facility] Comment on above: Performed By: #### L 500.2500, L100.0100 ####[facility] [address] [place], [address] IG% 0.700 Normal 0.0-0.9 [facility] Comment on above: Result Comment: IG% - Immature Granulocytes (promyelocytes, myelocytes andmetamyelocytes) > 1% indicates that a LEFT SHIFT is Present. Performed By: #### L 500.2500, L100.0100 ####[facility] [address] [place], [address] Lymphocytes/100 WBC (Bld) 32.0 % Normal 19-41 [facility] Comment on above: Performed By: #### L 500.2500, L100.0100 ####[facility] [address] [place], [address] MCH (RBC) [Entitic mass] 27.2 pg Normal 27.0-32.0 [facility] Comment on above: Performed By: #### L 500.2500, L100.0100 ####[facility] [address] [place], [address] MCHC (RBC) [Mass/Vol] 33.1 g/dL Normal 32-36 [facility] Comment on above: Performed By: #### L 500.2500, L100.0100 ####[facility] [address] [place], [address] MCV (RBC) [Entitic vol] 82.1 fL Normal 81-99 [facility] Comment on above: Performed By: #### L 500.2500, L100.0100 ####[facility] [address] [place], [address] Monocytes/100 WBC (Bld) 8.7 % Normal 0-10 [facility] Comment on above: Performed By: #### L 500.2500, L100.0100 ####[facility] [address] [place], [address] Neutrophils/100 WBC (Bld) 57.5 % Normal 47-70 [facility] Comment on above: Performed By: #### L 500.2500, L100.0100 ####[facility] [address] [place], [address] Nucleated RBC (Bld) [#/Vol] 0 10*3/uL Normal 0-5 [facility] Comment on above: Performed By: #### L 500.2500, L100.0100 ####[facility] [address] [place], [address] Platelet mean volume (Bld) [Entitic vol] 10.2 fL Normal 6.2-12.0 [facility] Comment on above: Performed By: #### L 500.2500, L100.0100 ####[facility] [address] [place], [address] Platelets (Bld) [#/Vol] 192 10*3/uL Normal 150-450 [facility] Comment on above: Performed By: #### L 500.2500, L100.0100 ####[facility] [address] [place], [address] RBC (Bld) [#/Vol] 3.97 10*6/uL Low 4.2-5.4 [facility] Comment on above: Performed By: #### L 500.2500, L100.0100 ####[facility] [address] [place], [address] RDW SD 42.9 fl Normal 35.1-43.9 [facility] Comment on above: Performed By: #### L 500.2500, L100.0100 ####[facility] [address] [place], [address] WBC (Bld) [#/Vol] 4.5 10*3/uL Normal 4.4-11.0 [facility] Comment on above: Performed By: #### L 500.2500, L100.0100 ####[facility] [address] [place], [address] Calcium [Mass/Vol]Ordered By : Nicole Trujillo on 07-03-2024 Serum or plasma calcium measurement (mass/volume) 8.6 mg/dL 8.5-10.1 [facility] Carbon dioxide measurementOr dered By: Nicole Trujillo on 07-03-2024 Carbon dioxide measurement 27.0 mmol/L 21.0-32.0 [facility] Chloride measurementOrdered By: Nicole Trujillo on 07-03-2024 Chloride measurement 105 mmol/L 98-107 [facility] Creatinine [Mass/Vol]Ordered By: Nicole Trujillo on 07-03-2024 Serum or plasma creatinine measurement (mass/volume) 0.61 mg/dL 0.55-1.02 [facility] Eosinophil percentageOrdered By: Nicole Trujillo on 07-03-2024 Eosinophil percentage 0.7 % 0-5 [facility] Erythrocyte distribution wid th (RBC) [Ratio]Ordered By: Nicole Trujillo on 07-03-2024 Erythrocyte distribution width ratio 14.3 % 11.6-14.6 [facility] Erythrocyte distribution wid th standard deviationOrdered By: Nicole Trujillo on 07-03-2024 Erythrocyte distribution width standard deviation 42.9 fl 35.1-43.9 [facility] Estimated glomerular filtrat ion rate (GFR) AmericanOrdered By: Nicole Trujillo on 07-03-2024 Estimated glomerular filtration rate (GFR) 131 mL/min >60 [facility] Estimation of creatinine sylvain aranceOrdered By: Nicole Trujillo on 07-03-2024 Estimation of creatinine clearance 119.69 ml/min [facility] Glomerular filtration rate ( GFR) estimationOrdered By: Nicole Trujillo on 07-03-2024 Glomerular filtration rate (GFR) estimation 108 mL/min >60 [facility] Glucose measurementOrdered B y: Nicole Trujillo on 07-03-2024 Glucose measurement 163 mg/dL High 74-106 [facility] Glucose measurement at bedsi deOrdered By: Nicole Trujillo on 07-03-2024 Glucose measurement at bedside 180 mg/dL High 74-106 [facility] Hematocrit Auto (Bld) [Volum e fraction]Ordered By: Nicole Trujillo on 07-03-2024 Automated blood hematocrit (percentage) 32.6 % Low 37-47 [facility] Hemoglobin measurementOrdere d By: Nicole Trujillo on 07-03-2024 Hemoglobin measurement 10.8 g/dL Low 12.0-15.0 [facility] Immature granulocytes/100 WB C Auto (Bld)Ordered By: Nicole Trujillo on 07-03-2024 Automated immature granulocyte percentage 0.700 % 0.0-0.9 [facility] Lymphocytes Auto (Unsp spec) [#/Vol]Ordered By: Nicole Trujillo on 07-03-2024 Absolute lymphocyte count 1.43 X10^3/uL 0.83-4.51 [facility] Lymphocytes/100 WBC Auto (Un sp spec)Ordered By: Nicole Trujillo on 07-03-2024 Automated lymphocyte count as percentage of total leukocytes 32.0 % 19-41 [facility] MCV (RBC) [Entitic vol]Order ed By: Nicole Trujillo on 07-03-2024 MCV (mean corpuscular volume) determination 82.1 fL 81-99 [facility] Mean corpuscular hemoglobin (MCH) determinationOrdered By: Nicole Trujillo on 07-03-2024 Mean corpuscular hemoglobin (MCH) determination 27.2 pg 27.0-32.0 [facility] Mean corpuscular hemoglobin concentration (MCHC) determinationOrdered By: Nicole Trujillo on 07-03-2024 Mean corpuscular hemoglobin concentration (MCHC) determination 33.1 g/dL 32-36 [facility] Mean platelet volume determi nationOrdered By: Nicole Trujillo on 07-03-2024 Mean platelet volume determination 10.2 fl 6.2-12.0 [facility] Monocyte percentageOrdered B y: Nicole Trujillo on 07-03-2024 Monocyte percentage 8.7 % 0-10 [facility] Neutrophil percentageOrdered By: Nicole Trujillo on 07-03-2024 Neutrophil percentage 57.5 % 47-70 [facility] Nucleated red blood cell per centageOrdered By: Nicole Trujillo on 07-03-2024 Nucleated red blood cell percentage 0 % 0-5 [facility] Platelet countOrdered By: Mary Trujillo on 07-03-2024 Platelet count 192 K/mm3 150-450 [facility] Potassium measurementOrdered By: Nicole Trujillo on 07-03-2024 Potassium measurement 3.4 mmol/L Low 3.5-5.1 [facility] RBC Auto (Bld) [#/Vol]Ordere d By: Nicole Trujillo on 07-03-2024 Automated blood erythrocyte count 3.97 M/mm3 Low 4.2-5.4 [facility] Serum anion gap measurementO rdered By: Nicole Trujillo on 07-03-2024 Serum anion gap measurement 5 5-15 [facility] Sodium levelOrdered By: Ifrah Trujillo on 07-03-2024 Sodium level 137 mmol/L 136-145 [facility] Urea nitrogen [Mass/Vol]Orde red By: Nicole Trujillo on 07-03-2024 Serum or plasma urea nitrogen measurement (mass/volume) 15 mg/dL -18 [facility] White blood cell (WBC) count Ordered By: Nicole Trujillo on 07-03-2024 White blood cell (WBC) count 4.5 K/mm3 4.4-11.0 [facility] Abdomen/Pel W ORAL Cont Only on 07-02-2024 Abdomen/Pel W ORAL Cont Only Normal [facility] Basic Metabolic Profile (BMP )on 07-02-2024 BUN/CRE 26.7 RATIO High 10-20 [facility] Comment on above: Performed By: #### L 501.5200, L100.0100, L501.2300, L500.2500 ####[facility] [address] [place], [address] CA,Total 8.3 mg/dL Low 8.5-10.1 [facility] Comment on above: Performed By: #### L 501.5200, L100.0100, L501.2300, L500.2500 ####[facility] [address] [place], [address] Chloride [Moles/Vol] 104 mmol/L Normal 98-107 [facility] Comment on above: Performed By: #### L 501.5200, L100.0100, L501.2300, L500.2500 ####[facility] [address] [place], [address] CO2 [Moles/Vol] 24.0 mmol/L Normal 21.0-32.0 [facility] Comment on above: Performed By: #### L 501.5200, L100.0100, L501.2300, L500.2500 ####[facility] [address] [place], [address] Creatinine [Mass/Vol] 0.94 mg/dL Normal 0.55-1.02 [facility] Comment on above: Result Comment: The validity of the calculated GFR GFRAA in patients over70 years has not been determined. Clinical correlation isessential. Performed By: #### L 501.5200, L100.0100, L501.2300, L500.2500 ####[facility] [address] [place], [address] ECRCL 76.61 ml/min Normal [facility] Comment on above: Performed By: #### L 501.5200, L100.0100, L501.2300, L500.2500 ####[facility] [address] [place], [address] EST GFR - AA 81 mL/min Normal >60 [facility] Comment on above: Result Comment: Afri can [place] GFR Calc Performed By: #### L 501.5200, L100.0100, L501.2300, L500.2500 ####[facility] [address] [place], [address] GAP 8 Normal 5-15 [facility] Comment on above: Performed By: #### L 501.5200, L100.0100, L501.2300, L500.2500 ####[facility] [address] [place], [address] GFR/1.73 sq M.predicted among non-blacks MDRD (S/P/Bld) [Vol rate/Area] 67 mL/min/{1.73_m2} Normal >60 [facility] Comment on above: Result Comment: Non- GFR Calc Performed By: #### L 501.5200, L100.0100, L501.2300, L500.2500 ####[facility] [address] [place], [address] Glucose [Mass/Vol] 134 mg/dL High 74-106 [facility] Comment on above: Result Comment: Fast ing Glucose result greater than or equal to 126 mg/dLsuggests DIABETES MELLITUS per A.D.A. criteria. Performed By: #### L 501.5200, L100.0100, L501.2300, L500.2500 ####[facility] [address] [place], [address] Potassium [Moles/Vol] 3.6 mmol/L Normal 3.5-5.1 [facility] Comment on above: Performed By: #### L 501.5200, L100.0100, L501.2300, L500.2500 ####[facility] [address] [place], [address] Sodium [Moles/Vol] 137 mmol/L Normal 136-145 [facility] Comment on above: Performed By: #### L 501.5200, L100.0100, L501.2300, L500.2500 ####[facility] [address] [place], [address] Urea nitrogen [Mass/Vol] 25 mg/dL High 7-18 [facility] Comment on above: Performed By: #### L 501.5200, L100.0100, L501.2300, L500.2500 ####[facility] [address] [place], [address] Bedside Glucoseon 07-02-2024 FINGERSTICK GLU 159 mg/dL High 74-106 [facility] Comment on above: Result Comment: TALIA GEMENT OF PATIENT CARE PER NURSING PROTOCOL Performed By: #### L 501.080 ####[facility] [address] [place], [address] FINGERSTICK GLU 190 mg/dL High 74-106 [facility] Comment on above: Result Comment: TALIA GEMENT OF PATIENT CARE PER NURSING PROTOCOL Performed By: #### L 501.080 ####[facility] [address] [place], [address] FINGERSTICK GLU 155 mg/dL High 74-106 [facility] Comment on above: Result Comment: TALIA GEMENT OF PATIENT CARE PER NURSING PROTOCOL Performed By: #### L 501.080 ####[facility] [address] [place], [address] FINGERSTICK GLU 128 mg/dL High 74-106 [facility] Comment on above: Result Comment: ATLIA GEMENT OF PATIENT CARE PER NURSING PROTOCOL Performed By: #### L 501.080 ####[facility] [address] [place], [address] FINGERSTICK GLU 215 mg/dL High 74-106 [facility] Comment on above: Result Comment: TALIA GEMENT OF PATIENT CARE PER NURSING PROTOCOL Performed By: #### L 501.080 ####[facility] [address] [place], [address] CBC W/Diff, Automatedon 06-05 Absolute Lymph 2.11 X10 3/uL Normal 0.83-4.51 [facility] Comment on above: Performed By: #### L 501.5200, L100.0100, L501.2300, L500.2500 ####[facility] [address] [place], [address] Absolute Neut 2.4 X10 3/uL Normal 2.0-7.7 [facility] Comment on above: Performed By: #### L 501.5200, L100.0100, L501.2300, L500.2500 ####[facility] [address] [place], [address] Basophils/100 WBC (Bld) 0.4 % Normal 0-1 [facility] Comment on above: Performed By: #### L 501.5200, L100.0100, L501.2300, L500.2500 ####[facility] [address] [place], [address] Eosinophils/100 WBC (Bld) 0.6 % Normal 0-5 [facility] Comment on above: Performed By: #### L 501.5200, L100.0100, L501.2300, L500.2500 ####[facility] [address] [place], [address] Erythrocyte distribution width (RBC) [Ratio] 14.6 % Normal 11.6-14.6 [facility] Comment on above: Performed By: #### L 501.5200, L100.0100, L501.2300, L500.2500 ####[facility] [address] [place], [address] Hematocrit (Bld) [Volume fraction] 29.5 % Low 37-47 [facility] Comment on above: Performed By: #### L 501.5200, L100.0100, L501.2300, L500.2500 ####[facility] [address] [place], [address] Hemoglobin (Bld) [Mass/Vol] 9.5 g/dL Low 12.0-15.0 [facility] Comment on above: Performed By: #### L 501.5200, L100.0100, L501.2300, L500.2500 ####[facility] [address] [place], [address] IG% 0.400 Normal 0.0-0.9 [facility] Comment on above: Result Comment: IG% - Immature Granulocytes (promyelocytes, myelocytes andmetamyelocytes) > 1% indicates that a LEFT SHIFT is Present. Performed By: #### L 501.5200, L100.0100, L501.2300, L500.2500 ####[facility] [address] [place], [address] Lymphocytes/100 WBC (Bld) 42.8 % High 19-41 [facility] Comment on above: Performed By: #### L 501.5200, L100.0100, L501.2300, L500.2500 ####[facility] [address] [place], [address] MCH (RBC) [Entitic mass] 27.1 pg Normal 27.0-32.0 [facility] Comment on above: Performed By: #### L 501.5200, L100.0100, L501.2300, L500.2500 ####[facility] [address] [place], [address] MCHC (RBC) [Mass/Vol] 32.2 g/dL Normal 32-36 [facility] Comment on above: Performed By: #### L 501.5200, L100.0100, L501.2300, L500.2500 ####[facility] [address] [place], [address] MCV (RBC) [Entitic vol] 84.0 fL Normal 81-99 [facility] Comment on above: Performed By: #### L 501.5200, L100.0100, L501.2300, L500.2500 ####[facility] [address] [place], [address] Monocytes/100 WBC (Bld) 8.1 % Normal 0-10 [facility] Comment on above: Performed By: #### L 501.5200, L100.0100, L501.2300, L500.2500 ####[facility] [address] [place], [address] Neutrophils/100 WBC (Bld) 47.7 % Normal 47-70 [facility] Comment on above: Performed By: #### L 501.5200, L100.0100, L501.2300, L500.2500 ####[facility] [address] [place], [address] Nucleated RBC (Bld) [#/Vol] 0 10*3/uL Normal 0-5 [facility] Comment on above: Performed By: #### L 501.5200, L100.0100, L501.2300, L500.2500 ####[facility] [address] [place], [address] Platelet mean volume (Bld) [Entitic vol] 9.9 fL Normal 6.2-12.0 [facility] Comment on above: Performed By: #### L 501.5200, L100.0100, L501.2300, L500.2500 ####[facility] [address] [place], [address] Platelets (Bld) [#/Vol] 174 10*3/uL Normal 150-450 [facility] Comment on above: Performed By: #### L 501.5200, L100.0100, L501.2300, L500.2500 ####[facility] [address] [place], [address] RBC (Bld) [#/Vol] 3.51 10*6/uL Low 4.2-5.4 [facility] Comment on above: Performed By: #### L 501.5200, L100.0100, L501.2300, L500.2500 ####[facility] [address] [place], [address] RDW SD 44.8 fl High 35.1-43.9 [facility] Comment on above: Performed By: #### L 501.5200, L100.0100, L501.2300, L500.2500 ####[facility] [address] [place], [address] WBC (Bld) [#/Vol] 4.9 10*3/uL Normal 4.4-11.0 [facility] Comment on above: Performed By: #### L 501.5200, L100.0100, L501.2300, L500.2500 ####[facility] [address] [place], [address] Consultation - Infectious Dx on 07-02-2024 Consultation - Infectious Dx Normal [facility] Ferritinon 07-02-2024 Ferritin [Mass/Vol] 148 ng/mL Normal 8-252 [facility] Comment on above: Performed By: #### L 503.6030, L503.6550 ####[facility] [address] [place], [address] Ferritin measurementOrdered By: Nicole Trujillo on 07-02-2024 Ferritin measurement 148 ng/mL 8-252 [facility] Iron (Unsp spec) [Mass/Mass] Ordered By: Nicole Trujillo on 07-02-2024 Iron measurement (mass/mass) 106 ug/dL 50-170 [facility] Iron saturation [Mass fracti on]Ordered By: Nicole Trujillo on 07-02-2024 Serum or plasma iron saturation measurement (mass fraction) 39.8 % 15.0-55.0 [facility] Iron+Iron Binding Capacityon 07-02-2024 Iron [Mass/Vol] 106 ug/dL Normal 50-170 [facility] Comment on above: Performed By: #### L 503.6030, L503.6550 ####[facility] [address] [place], [address] IRON SATURATION 39.8 Normal 15.0-55.0 [facility] Comment on above: Performed By: #### L 503.6030, L503.6550 ####[facility] [address] [place], [address] TIBC 266 ug/dL Normal 250-450 [facility] Comment on above: Performed By: #### L 503.6030, L503.6550 ####[facility] [address] [place], [address] Magnesiumon 07-02-2024 Magnesium [Mass/Vol] 2.0 mg/dL Normal 1.6-2.6 [facility] Comment on above: Performed By: #### L 501.5200, L100.0100, L501.2300, L500.2500 ####[facility] [address] [place], [address] Magnesium measurementOrdered By: Nicole Trujillo on 07-02-2024 Magnesium measurement 2.0 mg/dL 1.6-2.6 [facility] Phosphoruson 07-02-2024 Phosphate [Mass/Vol] 2.8 mg/dL Normal 2.5-4.9 [facility] Comment on above: Performed By: #### L 501.5200, L100.0100, L501.2300, L500.2500 ####[facility] [address] [place], [place], [address] Phosphorus measurementOrdere d By: Nicole Trujillo on 07-02-2024 Phosphorus measurement 2.8 mg/dL 2.5-4.9 [facility] TIBCOrdered By: Nicole Trujillo on 07-02-2024 TIBC 266 ug/dL 250-450 [facility] Urine Cultureon 07-02-2024 URC Normal [facility] Comment on above: Performed By: #### M 100.2200 ####[facility] [address] [place], [place], [address] ALP [Catalytic activity/Vol] Ordered By: Nicole Trujillo on 07-01-2024 Serum or plasma alkaline phosphatase measurement 80 U/L 45-117 [facility] ALT [Catalytic activity/Vol] Ordered By: Nicole Trujillo on 07-01-2024 Serum or plasma alanine aminotransferase (ALT) measurement 22 U/L 13-56 [facility] Albumin [Mass/Vol]Ordered By : Nicole Trujillo on 07-01-2024 Serum or plasma albumin measurement (mass/volume) 2.7 g/dL Low 3.2-5.0 [facility] Albumin to globulin ratioOrd ered By: Nicole Trujillo on 07-01-2024 Albumin to globulin ratio 0.8 RATIO Low 0.9-2.4 [facility] Bedside Glucoseon 07-01-2024 FINGERSTICK GLU 254 mg/dL High 74-106 [facility] Comment on above: Result Comment: TALIA GEMENT OF PATIENT CARE PER NURSING PROTOCOL Performed By: #### L 501.080 ####[facility] [address], [address] FINGERSTICK GLU 195 mg/dL High 74-106 [facility] Comment on above: Result Comment: TALIA GEMENT OF PATIENT CARE PER NURSING PROTOCOL Performed By: #### L 501.080 ####[facility] [address] [place], [address] FINGERSTICK GLU 117 mg/dL High 74-106 [facility] Comment on above: Result Comment: TALIA GEMENT OF PATIENT CARE PER NURSING PROTOCOL Performed By: #### L 501.080 ####[facility] [address] [place], [address] Bilirubin, totalOrdered By: Nicole Trujillo on 07-01-2024 Bilirubin, total 1.10 mg/dL High 0.20-1.00 [facility] CBC W/Diff, Automatedon 06-05 Absolute Lymph 1.40 X10 3/uL Normal 0.83-4.51 [facility] Comment on above: Performed By: #### L 500.4050, L501.2300, L100.0100, L501.9520, L501.5200 ####[facility] [address] [place], [address] Absolute Neut 3.1 X10 3/uL Normal 2.0-7.7 [facility] Comment on above: Performed By: #### L 500.4050, L501.2300, L100.0100, L501.9520, L501.5200 ####[facility] [address] [place], [address] Basophils/100 WBC (Bld) 0.4 % Normal 0-1 [facility] Comment on above: Performed By: #### L 500.4050, L501.2300, L100.0100, L501.9520, L501.5200 ####[facility] [address] [place], [address] Eosinophils/100 WBC (Bld) 0.2 % Normal 0-5 [facility] Comment on above: Performed By: #### L 500.4050, L501.2300, L100.0100, L501.9520, L501.5200 ####[facility] [address] [place], [address] Erythrocyte distribution width (RBC) [Ratio] 14.6 % Normal 11.6-14.6 [facility] Comment on above: Performed By: #### L 500.4050, L501.2300, L100.0100, L501.9520, L501.5200 ####[facility] [address] [place], [address] Hematocrit (Bld) [Volume fraction] 33.5 % Low 37-47 [facility] Comment on above: Performed By: #### L 500.4050, L501.2300, L100.0100, L501.9520, L501.5200 ####[facility] [address] [place], [address] Hemoglobin (Bld) [Mass/Vol] 10.7 g/dL Low 12.0-15.0 [facility] Comment on above: Performed By: #### L 500.4050, L501.2300, L100.0100, L501.9520, L501.5200 ####[facility] [address] [place], [address] IG% 0.200 Normal 0.0-0.9 [facility] Comment on above: Result Comment: IG% - Immature Granulocytes (promyelocytes, myelocytes andmetamyelocytes) > 1% indicates that a LEFT SHIFT is Present. Performed By: #### L 500.4050, L501.2300, L100.0100, L501.9520, L501.5200 ####[facility] [address] [place], [address] Lymphocytes/100 WBC (Bld) 28.5 % Normal 19-41 [facility] Comment on above: Performed By: #### L 500.4050, L501.2300, L100.0100, L501.9520, L501.5200 ####[facility] [address] [place], [address] MCH (RBC) [Entitic mass] 26.7 pg Low 27.0-32.0 [facility] Comment on above: Performed By: #### L 500.4050, L501.2300, L100.0100, L501.9520, L501.5200 ####[facility] [address] [place], [address] MCHC (RBC) [Mass/Vol] 31.9 g/dL Low 32-36 [facility] Comment on above: Performed By: #### L 500.4050, L501.2300, L100.0100, L501.9520, L501.5200 ####[facility] [address] [place], [address] MCV (RBC) [Entitic vol] 83.5 fL Normal 81-99 [facility] Comment on above: Performed By: #### L 500.4050, L501.2300, L100.0100, L501.9520, L501.5200 ####[facility] [address] [place], [address] Monocytes/100 WBC (Bld) 6.7 % Normal 0-10 [facility] Comment on above: Performed By: #### L 500.4050, L501.2300, L100.0100, L501.9520, L501.5200 ####[facility] [address] [place], [address] Neutrophils/100 WBC (Bld) 64.0 % Normal 47-70 [facility] Comment on above: Performed By: #### L 500.4050, L501.2300, L100.0100, L501.9520, L501.5200 ####[facility] [address] [place], [address] Nucleated RBC (Bld) [#/Vol] 0 10*3/uL Normal 0-5 [facility] Comment on above: Performed By: #### L 500.4050, L501.2300, L100.0100, L501.9520, L501.5200 ####[facility] [address] [place], [address] Platelet mean volume (Bld) [Entitic vol] 9.6 fL Normal 6.2-12.0 [facility] Comment on above: Performed By: #### L 500.4050, L501.2300, L100.0100, L501.9520, L501.5200 ####[facility] [address] [place], [address] Platelets (Bld) [#/Vol] 184 10*3/uL Normal 150-450 [facility] Comment on above: Performed By: #### L 500.4050, L501.2300, L100.0100, L501.9520, L501.5200 ####[facility] [address] [place], [address] RBC (Bld) [#/Vol] 4.01 10*6/uL Low 4.2-5.4 [facility] Comment on above: Performed By: #### L 500.4050, L501.2300, L100.0100, L501.9520, L501.5200 ####[facility] [address] [place], [address] RDW SD 44.7 fl High 35.1-43.9 [facility] Comment on above: Performed By: #### L 500.4050, L501.2300, L100.0100, L501.9520, L501.5200 ####[facility] [address] [place], [address] WBC (Bld) [#/Vol] 4.9 10*3/uL Normal 4.4-11.0 [facility] Comment on above: Performed By: #### L 500.4050, L501.2300, L100.0100, L501.9520, L501.5200 ####[facility] [address] [place], [address] Comprehensive Metabolic Prof ilon 07-01-2024 Albumin [Mass/Vol] 2.7 g/dL Low 3.2-5.0 [facility] Comment on above: Performed By: #### L 500.4050, L501.2300, L100.0100, L501.9520, L501.5200 ####[facility] [address] [place], [address] Albumin/Globulin [Mass ratio] 0.8 {ratio} Low 0.9-2.4 [facility] Comment on above: Performed By: #### L 500.4050, L501.2300, L100.0100, L501.9520, L501.5200 ####[facility] [address] [place], [address] ALK P 80 U/L Normal 45-117 [facility] Comment on above: Performed By: #### L 500.4050, L501.2300, L100.0100, L501.9520, L501.5200 ####[facility] [address] [place], [address] ALT [Catalytic activity/Vol] 22 U/L Normal 13-56 [facility] Comment on above: Performed By: #### L 500.4050, L501.2300, L100.0100, L501.9520, L501.5200 ####[facility] [address] [place], [address] AST [Catalytic activity/Vol] 24 U/L Normal 15-37 [facility] Comment on above: Performed By: #### L 500.4050, L501.2300, L100.0100, L501.9520, L501.5200 ####[facility] [address] [place], [address] Bilirubin [Mass/Vol] 1.10 mg/dL High 0.20-1.00 [facility] Comment on above: Result Comment: For patients on eltrombopag therapy, use of Dimension [place] TBIL is not recommended. Performed By: #### L 500.4050, L501.2300, L100.0100, L501.9520, L501.5200 ####[facility] [address] [place], [address] BUN/CRE 22.7 RATIO High 10-20 [facility] Comment on above: Performed By: #### L 500.4050, L501.2300, L100.0100, L501.9520, L501.5200 ####[facility] [address] [place], [address] CA,Total 8.5 mg/dL Normal 8.5-10.1 [facility] Comment on above: Performed By: #### L 500.4050, L501.2300, L100.0100, L501.9520, L501.5200 ####[facility] [address] [place], [address] Chloride [Moles/Vol] 107 mmol/L Normal 98-107 [facility] Comment on above: Performed By: #### L 500.4050, L501.2300, L100.0100, L501.9520, L501.5200 ####[facility] [address] [place], [address] CO2 [Moles/Vol] 21.0 mmol/L Normal 21.0-32.0 [facility] Comment on above: Performed By: #### L 500.4050, L501.2300, L100.0100, L501.9520, L501.5200 ####[facility] [address] [place], [address] Creatinine [Mass/Vol] 1.19 mg/dL High 0.55-1.02 [facility] Comment on above: Result Comment: The validity of the calculated GFR GFRAA in patients over70 years has not been determined. Clinical correlation isessential. Performed By: #### L 500.4050, L501.2300, L100.0100, L501.9520, L501.5200 ####[facility] [address] [place], [address] ECRCL 60.52 ml/min Normal [facility] Comment on above: Performed By: #### L 500.4050, L501.2300, L100.0100, L501.9520, L501.5200 ####[facility] [address] [place], [address] EST GFR - AA 61 mL/min Normal >60 [facility] Comment on above: Result Comment: Afri can [place] GFR Calc Performed By: #### L 500.4050, L501.2300, L100.0100, L501.9520, L501.5200 ####[facility] [address] [place], [address] GAP 9 Normal 5-15 [facility] Comment on above: Performed By: #### L 500.4050, L501.2300, L100.0100, L501.9520, L501.5200 ####[facility] [address] [place], [address] GFR/1.73 sq M.predicted among non-blacks MDRD (S/P/Bld) [Vol rate/Area] 51 mL/min/{1.73_m2} Low >60 [facility] Comment on above: Result Comment: Non- GFR Calc Performed By: #### L 500.4050, L501.2300, L100.0100, L501.9520, L501.5200 ####[facility] [address] [place], [address] Globulin (S) [Mass/Vol] 3.5 g/dL Normal 2.2-4.2 [facility] Comment on above: Performed By: #### L 500.4050, L501.2300, L100.0100, L501.9520, L501.5200 ####[facility] [address] [place], [address] Glucose [Mass/Vol] 159 mg/dL High 74-106 [facility] Comment on above: Result Comment: Fast ing Glucose result greater than or equal to 126 mg/dLsuggests DIABETES MELLITUS per A.D.A. criteria. Performed By: #### L 500.4050, L501.2300, L100.0100, L501.9520, L501.5200 ####[facility] [address] [place], [address] Potassium [Moles/Vol] 3.4 mmol/L Low 3.5-5.1 [facility] Comment on above: Performed By: #### L 500.4050, L501.2300, L100.0100, L501.9520, L501.5200 ####[facility] [address] [place], [address] Sodium [Moles/Vol] 136 mmol/L Normal 136-145 [facility] Comment on above: Performed By: #### L 500.4050, L501.2300, L100.0100, L501.9520, L501.5200 ####[facility] [address] [place], [address] T PROT 6.2 g/dL Low 6.4-8.2 [facility] Comment on above: Performed By: #### L 500.4050, L501.2300, L100.0100, L501.9520, L501.5200 ####[facility] [address] [place], [address] Urea nitrogen [Mass/Vol] 27 mg/dL High 7-18 [facility] Comment on above: Performed By: #### L 500.4050, L501.2300, L100.0100, L501.9520, L501.5200 ####[facility] [address] [place], [address] Magnesiumon 07-01-2024 Magnesium [Mass/Vol] 2.0 mg/dL Normal 1.6-2.6 [facility] Comment on above: Performed By: #### L 500.4050, L501.2300, L100.0100, L501.9520, L501.5200 ####[facility] [address] [place], [address] No Panel InformationOrdered By: Nicole Trujillo on 07-01-2024 24 U/L 15-37 [facility] Phosphoruson 07-01-2024 Phosphate [Mass/Vol] 2.4 mg/dL Low 2.5-4.9 [facility] Comment on above: Performed By: #### L 500.4050, L501.2300, L100.0100, L501.9520, L501.5200 ####[facility] [address] [place], [address] Serum globulin measurementOr dered By: Nicole Trujillo on 07-01-2024 Serum globulin measurement 3.5 g/dL 2.2-4.2 [facility] TSH QnOrdered By: Nicole Gardiner on 07-01-2024 Serum or plasma thyroid stimulating hormone (TSH) measurement (units/volume) 1.730 uIU/mL 0.358-3.74 0 [facility] Thyroid Stim Hormone (TSH)on 07-01-2024 TSH 1.730 uIU/mL Normal 0.358-3.74 0 [facility] Comment on above: Performed By: #### L 500.4050, L501.2300, L100.0100, L501.9520, L501.5200 ####[facility] [address] [place], [address] Total proteinOrdered By: Jenae Trujillo on 07-01-2024 Total protein 6.2 g/dL Low 6.4-8.2 [facility] Bedside Glucoseon 06-30-2024 FINGERSTICK GLU 149 mg/dL High -106 [facility] Comment on above: Result Comment: TALIA GEMENT OF PATIENT CARE PER NURSING PROTOCOL Performed By: #### L 501.080 ####[facility] [address] [place], [address] FINGERSTICK GLU 216 mg/dL High [address] [place] [address] Comment on above: Result Comment: TALIA GEMENT OF PATIENT CARE PER NURSING PROTOCOL Performed By: #### L 501.080 ####[facility] [address] [place], [address] FINGERSTICK GLU 288 mg/dL High [address] [place] [address] Comment on above: Result Comment: TALIA GEMENT OF PATIENT CARE PER NURSING PROTOCOL Performed By: #### L 501.080 ####[facility] [address] [place], [address] FINGERSTICK GLU 291 mg/dL High [facility]106 [facility] Comment on above: Result Comment: TALIA GEMENT OF PATIENT CARE PER NURSING PROTOCOL Performed By: #### L 501.080 ####[facility] [address] [place], [address] CBC W/Diff, Automatedon - Absolute Lymph 1.35 X10 3/uL Normal 0.83-4.51 [facility] Comment on above: Performed By: #### L 100.0100, L500.4050, L501.5200 ####[facility] [address] [place], [address] Absolute Neut 3.3 X10 3/uL Normal 2.0-7.7 [facility] Comment on above: Performed By: #### L 100.0100, L500.4050, L501.5200 ####[facility] [address] [place], [address] Basophils/100 WBC (Bld) 0.2 % Normal 0-1 [facility] Comment on above: Performed By: #### L 100.0100, L500.4050, L501.5200 ####[facility] [address] [place], [address] Eosinophils/100 WBC (Bld) 0.2 % Normal 0-5 [facility] Comment on above: Performed By: #### L 100.0100, L500.4050, L501.5200 ####[facility] [address] [place], [address] Erythrocyte distribution width (RBC) [Ratio] 14.5 % Normal 11.6-14.6 [facility] Comment on above: Performed By: #### L 100.0100, L500.4050, L501.5200 ####[facility] [address] [place], [address] Hematocrit (Bld) [Volume fraction] 36.7 % Low 37-47 [facility] Comment on above: Performed By: #### L 100.0100, L500.4050, L501.5200 ####[facility] [address] [place], [address] Hemoglobin (Bld) [Mass/Vol] 12.0 g/dL Normal 12.0-15.0 [facility] Comment on above: Performed By: #### L 100.0100, L500.4050, L501.5200 ####[facility] [address] [place], [address] IG% 0.400 Normal 0.0-0.9 [facility] Comment on above: Result Comment: IG% - Immature Granulocytes (promyelocytes, myelocytes andmetamyelocytes) > 1% indicates that a LEFT SHIFT is Present. Performed By: #### L 100.0100, L500.4050, L501.5200 ####[facility] [address] [place], [address] Lymphocytes/100 WBC (Bld) 26.4 % Normal 19-41 [facility] Comment on above: Performed By: #### L 100.0100, L500.4050, L501.5200 ####[facility] [address] [place], [address] MCH (RBC) [Entitic mass] 27.0 pg Normal 27.0-32.0 [facility] Comment on above: Performed By: #### L 100.0100, L500.4050, L501.5200 ####[facility] [address] [place], [address] MCHC (RBC) [Mass/Vol] 32.7 g/dL Normal 32-36 [facility] Comment on above: Performed By: #### L 100.0100, L500.4050, L501.5200 ####[facility] [address] [place], [address] MCV (RBC) [Entitic vol] 82.5 fL Normal 81-99 [facility] Comment on above: Performed By: #### L 100.0100, L500.4050, L501.5200 ####[facility] [address] [place], [address] Monocytes/100 WBC (Bld) 7.8 % Normal 0-10 [facility] Comment on above: Performed By: #### L 100.0100, L500.4050, L501.5200 ####[facility] [address] [place], [address] Neutrophils/100 WBC (Bld) 65.0 % Normal 47-70 [facility] Comment on above: Performed By: #### L 100.0100, L500.4050, L501.5200 ####[facility] [address] [place], [address] Nucleated RBC (Bld) [#/Vol] 0 10*3/uL Normal 0-5 [facility] Comment on above: Performed By: #### L 100.0100, L500.4050, L501.5200 ####[facility] [address] [place], [address] Platelet mean volume (Bld) [Entitic vol] 9.6 fL Normal 6.2-12.0 [facility] Comment on above: Performed By: #### L 100.0100, L500.4050, L501.5200 ####[facility] [address] [place], [address] Platelets (Bld) [#/Vol] 215 10*3/uL Normal 150-450 [facility] Comment on above: Performed By: #### L 100.0100, L500.4050, L501.5200 ####[facility] [address] [place], [address] RBC (Bld) [#/Vol] 4.45 10*6/uL Normal 4.2-5.4 [facility] Comment on above: Performed By: #### L 100.0100, L500.4050, L501.5200 ####[facility] [address] [place], [address] RDW SD 43.2 fl Normal 35.1-43.9 [facility] Comment on above: Performed By: #### L 100.0100, L500.4050, L501.5200 ####[facility] [address] [place], [address] WBC (Bld) [#/Vol] 5.1 10*3/uL Normal 4.4-11.0 [facility] Comment on above: Performed By: #### L 100.0100, L500.4050, L501.5200 ####[facility] [address] [place], [address] Comprehensive Metabolic Prof ilon 06-30-2024 Albumin [Mass/Vol] 2.9 g/dL Low 3.2-5.0 [facility] Comment on above: Performed By: #### L 100.0100, L500.4050, L501.5200 ####[facility] [address] [place], [address] Albumin/Globulin [Mass ratio] 0.7 {ratio} Low 0.9-2.4 [facility] Comment on above: Performed By: #### L 100.0100, L500.4050, L501.5200 ####[facility] [address] [place], [address] ALK P 96 U/L Normal 45-117 [facility] Comment on above: Performed By: #### L 100.0100, L500.4050, L501.5200 ####[facility] [address] [place], [address] ALT [Catalytic activity/Vol] 25 U/L Normal 13-56 [facility] Comment on above: Performed By: #### L 100.0100, L500.4050, L501.5200 ####[facility] [address] [place], [address] AST [Catalytic activity/Vol] 32 U/L Normal 15-37 [facility] Comment on above: Performed By: #### L 100.0100, L500.4050, L501.5200 ####[facility] [address] [place], [address] Bilirubin [Mass/Vol] 0.90 mg/dL Normal 0.20-1.00 [facility] Comment on above: Result Comment: For patients on eltrombopag therapy, use of Dimension [place] TBIL is not recommended. Performed By: #### L 100.0100, L500.4050, L501.5200 ####[facility] [address] [place], [address] BUN/CRE 27.0 RATIO High 10-20 [facility] Comment on above: Performed By: #### L 100.0100, L500.4050, L501.5200 ####[facility] [address] [place], [address] CA,Total 9.0 mg/dL Normal 8.5-10.1 [facility] Comment on above: Performed By: #### L 100.0100, L500.4050, L501.5200 ####[facility] [address] [place], [address] Chloride [Moles/Vol] 102 mmol/L Normal 98-107 [facility] Comment on above: Performed By: #### L 100.0100, L500.4050, L501.5200 ####[facility] [address] [place], [address] CO2 [Moles/Vol] 27.0 mmol/L Normal 21.0-32.0 [facility] Comment on above: Performed By: #### L 100.0100, L500.4050, L501.5200 ####[facility] [address] [place], [address] Creatinine [Mass/Vol] 0.81 mg/dL Normal 0.55-1.02 [facility] Comment on above: Result Comment: The validity of the calculated GFR GFRAA in patients over70 years has not been determined. Clinical correlation isessential. Performed By: #### L 100.0100, L500.4050, L501.5200 ####[facility] [address] [place], [address] ECRCL 88.19 ml/min Normal [facility] Comment on above: Performed By: #### L 100.0100, L500.4050, L501.5200 ####[facility] [address] [place], [address] EST GFR - AA 95 mL/min Normal >60 [facility] Comment on above: Result Comment: Afri can [place] GFR Calc Performed By: #### L 100.0100, L500.4050, L501.5200 ####[facility] [address] [place], [address] GAP 5 Normal 5-15 [facility] Comment on above: Performed By: #### L 100.0100, L500.4050, L501.5200 ####[facility] [address] [place], [address] GFR/1.73 sq M.predicted among non-blacks MDRD (S/P/Bld) [Vol rate/Area] 78 mL/min/{1.73_m2} Normal >60 [facility] Comment on above: Result Comment: Non- GFR Calc Performed By: #### L 100.0100, L500.4050, L501.5200 ####[facility] [address] [place], [address] Globulin (S) [Mass/Vol] 4.3 g/dL High 2.2-4.2 [facility] Comment on above: Performed By: #### L 100.0100, L500.4050, L501.5200 ####[facility] [address] [place], [address] Glucose [Mass/Vol] 291 mg/dL High 74-106 [facility] Comment on above: Result Comment: Gluc ose result greater than or equal to 200 mg/dLsuggests DIABETES MELLITUS per A.D.A. criteria. Performed By: #### L 100.0100, L500.4050, L501.5200 ####[facility] [address] [place], [address] Potassium [Moles/Vol] 3.2 mmol/L Low 3.5-5.1 [facility] Comment on above: Performed By: #### L 100.0100, L500.4050, L501.5200 ####[facility] [address] [place], [address] Sodium [Moles/Vol] 134 mmol/L Low 136-145 [facility] Comment on above: Performed By: #### L 100.0100, L500.4050, L501.5200 ####[facility] [address] [place], [address] T PROT 7.2 g/dL Normal 6.4-8.2 [facility] Comment on above: Performed By: #### L 100.0100, L500.4050, L501.5200 ####[facility] [address] [place], [address] Urea nitrogen [Mass/Vol] 22 mg/dL High 7-18 [facility] Comment on above: Performed By: #### L 100.0100, L500.4050, L501.5200 ####[facility] [address] [place], [address] Magnesiumon 06-30-2024 Magnesium [Mass/Vol] 2.1 mg/dL Normal 1.6-2.6 [facility] Comment on above: Performed By: #### L 100.0100, L500.4050, L501.5200 ####[facility] [address] [place], [address] 12 Lead EKGon 06-29-2024 12 Lead EKG Normal [facility] Abdomen/Pelvis W IV Cont ONL Yon 06-29-2024 Abdomen/Pelvis W IV Cont ONLY Normal [facility] Bacteria LM.HPF (Urine sed) [#/Area]Ordered By: Davis Ibarra on 06-29-2024 Urine sediment bacteria count by microscopy (number/high power field) 3+ /hpf None Seen [facility] Bedside Glucoseon 06-29-2024 FINGERSTICK GLU 278 mg/dL High 74-106 [facility] Comment on above: Result Comment: TALIA CHAMBERS OF PATIENT CARE PER NURSING PROTOCOL Performed By: #### L 501.080 ####[facility] [address] [place], [address] Beta HCG ( test) Ql Ordered By: Davis Ibarra on 06-29-2024 Serum beta-hCG test, qualitative Negative [facility] CBC W/Diff, Automatedon 06-05 Absolute Lymph 1.05 X10 3/uL Normal 0.83-4.51 [facility] Comment on above: Performed By: #### L 700.6800, L501.2450, L100.0100, L501.5425, L500.4050 ####[facility] [address] [place], [address] Absolute Neut 4.8 X10 3/uL Normal 2.0-7.7 [facility] Comment on above: Performed By: #### L 700.6800, L501.2450, L100.0100, L501.5425, L500.4050 ####[facility] [address] [place], [address] Basophils/100 WBC (Bld) 0.2 % Normal 0-1 [facility] Comment on above: Performed By: #### L 700.6800, L501.2450, L100.0100, L501.5425, L500.4050 ####[facility] [address] [place], [address] Eosinophils/100 WBC (Bld) 0.5 % Normal 0-5 [facility] Comment on above: Performed By: #### L 700.6800, L501.2450, L100.0100, L501.5425, L500.4050 ####[facility] [address] [place], [address] Erythrocyte distribution width (RBC) [Ratio] 14.3 % Normal 11.6-14.6 [facility] Comment on above: Performed By: #### L 700.6800, L501.2450, L100.0100, L501.5425, L500.4050 ####[facility] [address] [place], [address] Hematocrit (Bld) [Volume fraction] 36.4 % Low 37-47 [facility] Comment on above: Performed By: #### L 700.6800, L501.2450, L100.0100, L501.5425, L500.4050 ####[facility] [address] [place], [address] Hemoglobin (Bld) [Mass/Vol] 12.8 g/dL Normal 12.0-15.0 [facility] Comment on above: Performed By: #### L 700.6800, L501.2450, L100.0100, L501.5425, L500.4050 ####[facility] [address] [place], [address] IG% 0.300 Normal 0.0-0.9 [facility] Comment on above: Result Comment: IG% - Immature Granulocytes (promyelocytes, myelocytes andmetamyelocytes) > 1% indicates that a LEFT SHIFT is Present. Performed By: #### L 700.6800, L501.2450, L100.0100, L501.5425, L500.4050 ####[facility] [address] [place], [address] Lymphocytes/100 WBC (Bld) 16.6 % Low 19-41 [facility] Comment on above: Performed By: #### L 700.6800, L501.2450, L100.0100, L501.5425, L500.4050 ####[facility] [address] [place], [address] MCH (RBC) [Entitic mass] 28.3 pg Normal 27.0-32.0 [facility] Comment on above: Performed By: #### L 700.6800, L501.2450, L100.0100, L501.5425, L500.4050 ####[facility] [address] [place], [address] MCHC (RBC) [Mass/Vol] 35.2 g/dL Normal 32-36 [facility] Comment on above: Performed By: #### L 700.6800, L501.2450, L100.0100, L501.5425, L500.4050 ####[facility] [address] [place], [address] MCV (RBC) [Entitic vol] 80.5 fL Low 81-99 [facility] Comment on above: Performed By: #### L 700.6800, L501.2450, L100.0100, L501.5425, L500.4050 ####[facility] [address] [place], [address] Monocytes/100 WBC (Bld) 6.2 % Normal 0-10 [facility] Comment on above: Performed By: #### L 700.6800, L501.2450, L100.0100, L501.5425, L500.4050 ####[facility] [address] [place], [address] Neutrophils/100 WBC (Bld) 76.2 % High 47-70 [facility] Comment on above: Performed By: #### L 700.6800, L501.2450, L100.0100, L501.5425, L500.4050 ####[facility] [address] [place], [address] Nucleated RBC (Bld) [#/Vol] 0 10*3/uL Normal 0-5 [facility] Comment on above: Performed By: #### L 700.6800, L501.2450, L100.0100, L501.5425, L500.4050 ####[facility] [address] [place], [address] Platelet mean volume (Bld) [Entitic vol] 9.4 fL Normal 6.2-12.0 [facility] Comment on above: Performed By: #### L 700.6800, L501.2450, L100.0100, L501.5425, L500.4050 ####[facility] [address] [place], [address] Platelets (Bld) [#/Vol] 207 10*3/uL Normal 150-450 [facility] Comment on above: Performed By: #### L 700.6800, L501.2450, L100.0100, L501.5425, L500.4050 ####[facility] [address] [place], [address] RBC (Bld) [#/Vol] 4.52 10*6/uL Normal 4.2-5.4 [facility] Comment on above: Performed By: #### L 700.6800, L501.2450, L100.0100, L501.5425, L500.4050 ####[facility] [address] [place], [address] RDW SD 42.1 fl Normal 35.1-43.9 [facility] Comment on above: Performed By: #### L 700.6800, L501.2450, L100.0100, L501.5425, L500.4050 ####[facility] [address] [place], [address] WBC (Bld) [#/Vol] 6.3 10*3/uL Normal 4.4-11.0 [facility] Comment on above: Performed By: #### L 700.6800, L501.2450, L100.0100, L501.5425, L500.4050 ####[facility] [address] [place], [address] Chest 1 View (Portable)on Chest 1 View (Portable) Normal [facility] Clarity (U)Ordered By: Madhav Ibarra on 06-29-2024 Urine clarity Cloudy Clear [facility] Color (U)Ordered By: Davis Ibarra on 06-29-2024 Urine color determination Yellow Yellow [facility] Comprehensive Metabolic Prof ilon 06-29-2024 Albumin [Mass/Vol] 3.3 g/dL Normal 3.2-5.0 [facility] Comment on above: Order Comment: 1Y Performed By: #### L 700.6800, L501.2450, L100.0100, L501.5425, L500.4050 ####[facility] [address] [place], [address] Albumin/Globulin [Mass ratio] 0.8 {ratio} Low 0.9-2.4 [facility] Comment on above: Order Comment: 1Y Performed By: #### L 700.6800, L501.2450, L100.0100, L501.5425, L500.4050 ####[facility] [address] [place], [address] ALK P 113 U/L Normal 45-117 [facility] Comment on above: Order Comment: 1Y Performed By: #### L 700.6800, L501.2450, L100.0100, L501.5425, L500.4050 ####[facility] [address] [place], [address] ALT [Catalytic activity/Vol] 26 U/L Normal 13-56 [facility] Comment on above: Order Comment: 1Y Performed By: #### L 700.6800, L501.2450, L100.0100, L501.5425, L500.4050 ####[facility] [address] [place], [address] AST [Catalytic activity/Vol] 34 U/L Normal 15-37 [facility] Comment on above: Order Comment: 1Y Performed By: #### L 700.6800, L501.2450, L100.0100, L501.5425, L500.4050 ####[facility] [address] [place], [address] Bilirubin [Mass/Vol] 0.80 mg/dL Normal 0.20-1.00 [facility] [place] Comment on above: Order Comment: 1Y Result Comment: For patients on eltrombopag therapy, use of Dimension [place] TBIL is not recommended. Performed By: #### L 700.6800, L501.2450, L100.0100, L501.5425, L500.4050 ####[facility] [address] [place], [address] BUN/CRE 27.6 RATIO High 10-20 [facility] Comment on above: Order Comment: 1Y Performed By: #### L 700.6800, L501.2450, L100.0100, L501.5425, L500.4050 ####[facility] [address] [place], [address] CA,Total 9.6 mg/dL Normal 8.5-10.1 [facility] Comment on above: Order Comment: 1Y Performed By: #### L 700.6800, L501.2450, L100.0100, L501.5425, L500.4050 ####[facility] [address] [place], [address] Chloride [Moles/Vol] 98 mmol/L Normal 98-107 [facility] [place] Comment on above: Order Comment: 1Y Performed By: #### L 700.6800, L501.2450, L100.0100, L501.5425, L500.4050 ####[facility] [address] [place], [address] CO2 [Moles/Vol] 25.0 mmol/L Normal 21.0-32.0 [facility] Comment on above: Order Comment: 1Y Performed By: #### L 700.6800, L501.2450, L100.0100, L501.5425, L500.4050 ####[facility] [address] [place], [address] Creatinine [Mass/Vol] 0.91 mg/dL Normal 0.55-1.02 [facility] Comment on above: Order Comment: 1Y Result Comment: The validity of the calculated GFR GFRAA in patients over70 years has not been determined. Clinical correlation isessential. Performed By: #### L 700.6800, L501.2450, L100.0100, L501.5425, L500.4050 ####[facility] [address] [place], [address] ECRCL 79.48 ml/min Normal [facility] Comment on above: Order Comment: 1Y Performed By: #### L 700.6800, L501.2450, L100.0100, L501.5425, L500.4050 ####[facility] [address] [place], [address] EST GFR - AA 84 mL/min Normal >60 [facility] Comment on above: Order Comment: 1Y Result Comment: Afri can [place] GFR Calc Performed By: #### L 700.6800, L501.2450, L100.0100, L501.5425, L500.4050 ####[facility] [address] [place], [address] GAP 9 Normal 5-15 [facility] Comment on above: Order Comment: 1Y Performed By: #### L 700.6800, L501.2450, L100.0100, L501.5425, L500.4050 ####[facility] [address] [place], [address] GFR/1.73 sq M.predicted among non-blacks MDRD (S/P/Bld) [Vol rate/Area] 69 mL/min/{1.73_m2} Normal >60 [facility] Comment on above: Order Comment: 1Y Result Comment: Non- GFR Calc Performed By: #### L 700.6800, L501.2450, L100.0100, L501.5425, L500.4050 ####[facility] [address] [place], [address] Globulin (S) [Mass/Vol] 4.4 g/dL High 2.2-4.2 [facility] Comment on above: Order Comment: 1Y Performed By: #### L 700.6800, L501.2450, L100.0100, L501.5425, L500.4050 ####[facility] [address] [place], [address] Glucose [Mass/Vol] 363 mg/dL High 74-106 [facility] Comment on above: Order Comment: 1Y Result Comment: Gluc ose result greater than or equal to 200 mg/dLsuggests DIABETES MELLITUS per A.D.A. criteria. Performed By: #### L 700.6800, L501.2450, L100.0100, L501.5425, L500.4050 ####[facility] [address] [place], [address] Potassium [Moles/Vol] 3.6 mmol/L Normal 3.5-5.1 [facility] Comment on above: Order Comment: 1Y Performed By: #### L 700.6800, L501.2450, L100.0100, L501.5425, L500.4050 ####[facility] [address] [place], [address] Sodium [Moles/Vol] 131 mmol/L Low 136-145 [facility] Comment on above: Order Comment: 1Y Performed By: #### L 700.6800, L501.2450, L100.0100, L501.5425, L500.4050 ####[facility] [address] [place], [address] T PROT 7.7 g/dL Normal 6.4-8.2 [facility] Comment on above: Order Comment: 1Y Performed By: #### L 700.6800, L501.2450, L100.0100, L501.5425, L500.4050 ####[facility] [address] [place], [address] Urea nitrogen [Mass/Vol] 25 mg/dL High 7-18 [facility] Comment on above: Order Comment: 1Y Performed By: #### L 700.6800, L501.2450, L100.0100, L501.5425, L500.4050 ####[facility] [address] [place], [address] Emergency Department Summary on 06-29-2024 Emergency Department Summary Normal [facility] Glucose Ql (U)Ordered By: Matt Ibarra on 06-29-2024 Urine glucose detection 1000 mg/dl High Normal [facility] H AND P Exam - Hospitaliston 06-29-2024 H&P Exam - Hospitalist Normal [facility] L501.5425on 06-29-2024 TROPONIN-I HS 28 pg/mL Normal 3.0-54.0 [facility] Comment on above: Order Comment: 1Y Result Comment: Plea se Note: New Test Units and Gender Specific Reference Ranges. For more information see Policy Stat Procedure [place] High Sensitivity Troponin (TNIH) and attachments. Performed By: #### L 700.6800, L501.2450, L100.0100, L501.5425, L500.4050 ####[facility] [address] [place], [place], [id number] Leukocyte esterase Test stri p Ql (U)Ordered By: Davis Ibarra on 06-29-2024 Urine leukocyte esterase detection by dipstick 500 /ul High Negative [facility] Lipaseon 06-29-2024 Lipase [Catalytic activity/Vol] 23 U/L Normal 13-75 [facility] Comment on above: Order Comment: 1Y Result Comment: Plea se note:LIPASE revised reference range effective 22.New Lipase methodology. Expected to produce lower valuesthan the previous assay method.NEW Reference Range: 13 - 75 U/L Performed By: #### L 700.6800, L501.2450, L100.0100, L501.5425, L500.4050 ####[facility] [address] [place], [place], [address] Lipase measurementOrdered By : Davis Ibarra on 06-29-2024 Lipase measurement 23 U/L 13-75 [facility] Microscopic analysis of urin e for red blood cells (RBC)Ordered By: Davis Ibarra on 06-29-2024 Microscopic analysis of urine for red blood cells (RBC) 0-5 SEEN /hpf 5-10 [facility] Mucus LM Ql (Urine sed)Order ed By: Davis Ibarra on 06-29-2024 Mucus detection in urine sediment by light microscopy 1+ /hpf [facility] Nitrite Test strip Ql (U)Ord ered By: Davis Ibarra on 06-29-2024 Urine nitrite test by dipstick Positive High Negative [facility] ,Serum,hCG Quali.on 06-29-2024 HCG, SERUM QUAL Negative Normal [facility] Comment on above: Performed By: #### L 700.6800, L501.2450, L100.0100, L501.5425, L500.4050 ####[facility] [address] [place], [address] Protein Test strip Ql (U)Ord ered By: Davis Ibarra on 06-29-2024 Urine protein assay by test strip, semi-quantitative 100 mg/dl High Negative [facility] Specific gravity (U) [Rel de nsity]Ordered By: Davis Ibarra on 06-29-2024 Urine specific gravity measurement 1.015 1.002-1.03 0 [facility] Tropinin I.cardiac panel Hig h sensitivity methodOrdered By: Davis Ibarra on 06-29-2024 Serum or plasma cardiac troponin I panel by high sensitivity method 28 pg/mL 3.0-54.0 [facility] Urinalysis, Completeon 06-29 BACTERIA 3+ /hpf Normal None Seen [facility] Comment on above: Order Comment: CLEAN CATCH Performed By: #### L 400.0001 ####[facility] [address] [place], [address] EPI,SQUAMOUS 0-5 SEEN Normal 5-10 [facility] Comment on above: Order Comment: CLEAN CATCH Performed By: #### L 400.0001 ####[facility] [address] [place], [address] Mucus Ql (Urine sed) 1+ /hpf Normal [facility] Comment on above: Order Comment: CLEAN CATCH Performed By: #### L 400.0001 ####[facility] [address] [place], [address] RBC 0-5 SEEN Normal 0-5 [facility] Comment on above: Order Comment: CLEAN CATCH Performed By: #### L 400.0001 ####[facility] [address] [place], [place], [address] WBC 10-25 SEEN Normal 0-5 [facility] Comment on above: Order Comment: CLEAN CATCH Performed By: #### L 400.0001 ####[facility] [address] [place], [place], [address] Urine blood detectionOrdered By: Davis Ibarra on 06-29-2024 Urine blood detection 50 /ul High Negative [facility] Urine cultureOrdered By: [place] on 06-29-2024 Urine culture ESBL Escherichia coli Abnormal [facility] Urine total bilirubin detect ion by test stripOrdered By: Davis Ibarra on 06-29-2024 Urine total bilirubin detection by test strip Negative Negative [facility] Urobilinogen Ql (U)Ordered B y: Davis Ibarra on 06-29-2024 Urine urobilinogen measurement Normal mg/dl Normal [facility] White blood cell countOrdere d By: Davis Ibarra on 06-29-2024 White blood cell count 10-25 SEEN /hpf 0-5 [facility] pH (U)Ordered By: Adrien on 06-29-2024 Urine pH 6.0 5.0 - 8.0 [facility] .Auto Diffon 05-23-2024 Basophil, Absolute 0.1 10 3/mcL Normal 0.0-0.2 [facility] Comment on above: Performed By: #### C BC, MORPH, CMP, TROPHS, ADIFF, GFR, LIP, MDW, ANEU #### [address] [address] Basophils/100 WBC (Bld) 0.8 % Normal 0.0-2.5 [facility] Comment on above: Performed By: #### C BC, MORPH, CMP, TROPHS, ADIFF, GFR, LIP, MDW, ANEU #### [address] [place], [place] [address] Eosinophil, Absolute 0.2 10 3/mcL Normal 0.0-0.7 [facility] Comment on above: Performed By: #### C BC, MORPH, CMP, TROPHS, ADIFF, GFR, LIP, MDW, ANEU #### [address] [address] Eosinophils/100 WBC (Bld) 1.1 % Normal 0.0-7.0 [facility] Comment on above: Performed By: #### C BC, MORPH, CMP, TROPHS, ADIFF, GFR, LIP, MDW, ANEU #### [address] [address] Lymphocyte, Absolute 1.7 10 3/mcL Normal 0.9-4.3 [facility] Comment on above: Performed By: #### C BC, MORPH, CMP, TROPHS, ADIFF, GFR, LIP, MDW, ANEU #### [address] [address] Lymphocytes/100 WBC (Bld) 11.5 % Low 20.0-40.0 [facility] Comment on above: Performed By: #### C BC, MORPH, CMP, TROPHS, ADIFF, GFR, LIP, MDW, ANEU #### [address] [address] Monocyte, Absolute 0.9 10 3/mcL Normal 0.1-1.4 [facility] Comment on above: Performed By: #### C BC, MORPH, CMP, TROPHS, ADIFF, GFR, LIP, MDW, ANEU #### [address] [address] Monocytes/100 WBC (Bld) 6.2 % Normal 2.0-13.0 [facility] Comment on above: Performed By: #### C BC, MORPH, CMP, TROPHS, ADIFF, GFR, LIP, MDW, ANEU #### [address] [address] Neutrophils/100 WBC (Bld) 80.4 % High 50.0-75.0 [facility] Comment on above: Performed By: #### C BC, MORPH, CMP, TROPHS, ADIFF, GFR, LIP, MDW, ANEU #### [address] [address] .GFRon 05-23-2024 GFR Non- 26 ml/min/1.73sqm Normal [facility] Comment on above: Result Comment: GFR Population mean for , Non- Americans Ages 20-29 = 116 mL/min/1.73 sq.m. Ages 30-39 = 107 mL/min/1.73 sq.m. Ages 40-49 = 99 mL/min/1.73 sq.m. Ages 50-59 = 93 mL/min/1.73 sq.m. Ages 60-69 = 85 mL/min/1.73 sq.m. Ages 70+ = 75 mL/min/1.73 sq.m. Chronic Kidney Disease: Less than 60 mL/min/1.73 square meters End Stage Renal Disease: Less than 15 mL/min/1.73 square meters Performed By: #### C BC, MORPH, CMP, TROPHS, ADIFF, GFR, LIP, MDW, ANEU #### [address] [address] GFR 31 ml/min/1.73sqm Normal [facility] Comment on above: Result Comment: GFR Population mean for , Non- Americans Ages 20-29 = 116 mL/min/1.73 sq.m. Ages 30-39 = 107 mL/min/1.73 sq.m. Ages 40-49 = 99 mL/min/1.73 sq.m. Ages 50-59 = 93 mL/min/1.73 sq.m. Ages 60-69 = 85 mL/min/1.73 sq.m. Ages 70+ = 75 mL/min/1.73 sq.m. Chronic Kidney Disease: Less than 60 mL/min/1.73 square meters End Stage Renal Disease: Less than 15 mL/min/1.73 square meters Performed By: #### C BC, MORPH, CMP, TROPHS, ADIFF, GFR, LIP, MDW, ANEU #### [address] [address] .MDWon 05-23-2024 Monocyte Distribution Width 18.96 Normal 0.00-20.00 [facility] Comment on above: Result Comment: For ED adult patients suspected of sepsis, MDW<=20.0 does not rule out sepsis or risk of sepsis Performed By: #### C BC, MORPH, CMP, TROPHS, ADIFF, GFR, LIP, MDW, ANEU #### [place] [address] .Morphon 05-23-2024 Platelet Estimate Normal Normal [facility] Comment on above: Performed By: #### C BC, MORPH, CMP, TROPHS, ADIFF, GFR, LIP, MDW, ANEU #### [place] [address] .NEUABSon 05-23-2024 Neutrophil, Absolute 11.7 10 3/mcL High 2.3-8.1 [facility] Comment on above: Performed By: #### C BC, MORPH, CMP, TROPHS, ADIFF, GFR, LIP, MDW, ANEU #### [place] [address] CBCon 05-23-2024 Erythrocyte distribution width (RBC) [Ratio] 15.3 % Normal 11.5-15.5 [facility] Comment on above: Performed By: #### C BC, MORPH, CMP, TROPHS, ADIFF, GFR, LIP, MDW, ANEU #### [place] [address] Hematocrit (Bld) [Volume fraction] 35.1 % Normal 34.0-46.0 [facility] Comment on above: Performed By: #### C BC, MORPH, CMP, TROPHS, ADIFF, GFR, LIP, MDW, ANEU #### [place] [address] Hgb 11.3 G/dL Low 12.0-16.0 [facility] Comment on above: Performed By: #### C BC, MORPH, CMP, TROPHS, ADIFF, GFR, LIP, MDW, ANEU #### [place] [address] MCH (RBC) [Entitic mass] 27.2 pg Normal 27.0-33.0 [facility] Comment on above: Performed By: #### C BC, MORPH, CMP, TROPHS, ADIFF, GFR, LIP, MDW, ANEU #### [address] [address] MCHC 32.3 G/dL Normal 32.0-36.0 [facility] Comment on above: Performed By: #### C BC, MORPH, CMP, TROPHS, ADIFF, GFR, LIP, MDW, ANEU #### [address] [address] MCV (RBC) [Entitic vol] 84.2 fL Normal 80.0-99.0 [facility] Comment on above: Performed By: #### C BC, MORPH, CMP, TROPHS, ADIFF, GFR, LIP, MDW, ANEU #### [address] [address] Platelet 229 10 3/mcL Normal 150-450 [facility] Comment on above: Performed By: #### C BC, MORPH, CMP, TROPHS, ADIFF, GFR, LIP, MDW, ANEU #### [address] [address] Platelet mean volume (Bld) [Entitic vol] 7.3 fL Normal 6.6-10.5 [facility] Comment on above: Performed By: #### C BC, MORPH, CMP, TROPHS, ADIFF, GFR, LIP, MDW, ANEU #### [address] [address] RBC 4.17 10 6/mcL Normal 4.10-5.30 [facility] Comment on above: Performed By: #### C BC, MORPH, CMP, TROPHS, ADIFF, GFR, LIP, MDW, ANEU #### [address] [address] WBC 14.5 10 3/mcL High 4.5-10.8 [facility] Comment on above: Performed By: #### C BC, MORPH, CMP, TROPHS, ADIFF, GFR, LIP, MDW, ANEU #### [address] [address] CMPon 05-23-2024 Albumin Level 2.7 G/dL Low 3.5-5.0 [facility] Comment on above: Order Comment: 05/23 20:12:51 EST hemolyzed. EH Performed By: #### C BC, MORPH, CMP, TROPHS, ADIFF, GFR, LIP, MDW, ANEU #### [address] [address] Albumin/Globulin [Mass ratio] 0.7 {ratio} Low 1.1-2.5 [facility] Comment on above: Order Comment: 05/23 20:12:51 EST hemolyzed. EH Performed By: #### C BC, MORPH, CMP, TROPHS, ADIFF, GFR, LIP, MDW, ANEU #### [address] [address] ALP [Catalytic activity/Vol] 128 U/L Normal 40-135 [facility] Comment on above: Order Comment: 05/23 20:12:51 EST hemolyzed. EH Performed By: #### C BC, MORPH, CMP, TROPHS, ADIFF, GFR, LIP, MDW, ANEU #### [address] [address] ALT [Catalytic activity/Vol] 22 U/L Normal 14-59 [facility] Comment on above: Order Comment: 05/23 20:12:51 EST hemolyzed. EH Performed By: #### C BC, MORPH, CMP, TROPHS, ADIFF, GFR, LIP, MDW, ANEU #### [address] [address] AST [Catalytic activity/Vol] 21 U/L Normal 10-40 [facility] Comment on above: Order Comment: 05/23 20:12:51 EST hemolyzed. EH Performed By: #### C BC, MORPH, CMP, TROPHS, ADIFF, GFR, LIP, MDW, ANEU #### [address] [address] Bili Total 0.9 mg/dL Normal 0.2-1.0 [facility] Comment on above: Order Comment: 05/23 20:12:51 EST hemolyzed. EH Result Comment: Use of this assay is not recommended for patients undergoing treatment with eltrombopag due to the potential for falsely elevated results. Performed By: #### C BC, MORPH, CMP, TROPHS, ADIFF, GFR, LIP, MDW, ANEU #### [address] [address] BUN/Creatinine Ratio 20 ratio Normal 7-27 [facility] Comment on above: Order Comment: 05/23 20:12:51 EST hemolyzed. EH Performed By: #### C BC, MORPH, CMP, TROPHS, ADIFF, GFR, LIP, MDW, ANEU #### [address] [address] Calcium [Mass/Vol] 8.7 mg/dL Normal 8.4-10.2 [facility] Comment on above: Order Comment: 05/23 20:12:51 EST hemolyzed. EH Performed By: #### C BC, MORPH, CMP, TROPHS, ADIFF, GFR, LIP, MDW, ANEU #### [address] [address] Chloride [Moles/Vol] 102 mmol/L Normal 98-107 [facility] Comment on above: Order Comment: 05/23 20:12:51 EST hemolyzed. EH Performed By: #### C BC, MORPH, CMP, TROPHS, ADIFF, GFR, LIP, MDW, ANEU #### [address] [address] CO2 [Moles/Vol] 24 mmol/L Normal 22-29 [facility] Comment on above: Order Comment: 05/23 20:12:51 EST hemolyzed. EH Performed By: #### C BC, MORPH, CMP, TROPHS, ADIFF, GFR, LIP, MDW, ANEU #### [address] [address] Creatinine [Mass/Vol] 2.02 mg/dL High 0.55-1.02 [facility] Comment on above: Order Comment: 05/23 20:12:51 EST hemolyzed. EH Result Comment: Test ing performed on Siemens Dimension EXL analyzer using a modified kinetic Breanne technique. Performed By: #### C BC, MORPH, CMP, TROPHS, ADIFF, GFR, LIP, MDW, ANEU #### [address] [address] Electrolyte Balance 8.0 mEq/L Normal 4.0-15.0 [facility] Comment on above: Order Comment: 05/23 20:12:51 EST hemolyzed. EH Performed By: #### C BC, MORPH, CMP, TROPHS, ADIFF, GFR, LIP, MDW, ANEU #### [address] [address] Globulin 4.0 G/dL Normal [facility] Comment on above: Order Comment: 05/23 20:12:51 EST hemolyzed. EH Performed By: #### C BC, MORPH, CMP, TROPHS, ADIFF, GFR, LIP, MDW, ANEU #### [address] [address] Glucose [Mass/Vol] 181 mg/dL High 70-105 [facility] Comment on above: Order Comment: 05/23 20:12:51 EST hemolyzed. EH Performed By: #### C BC, MORPH, CMP, TROPHS, ADIFF, GFR, LIP, MDW, ANEU #### [address] [address] Potassium [Moles/Vol] 5.2 mmol/L High 3.5-5.1 [facility] Comment on above: Order Comment: 05/23 20:12:51 EST hemolyzed. EH Performed By: #### C BC, MORPH, CMP, TROPHS, ADIFF, GFR, LIP, MDW, ANEU #### [address] [address] Sodium [Moles/Vol] 134 mmol/L Low 136-145 [facility] Comment on above: Order Comment: 05/23 20:12:51 EST hemolyzed. EH Performed By: #### C BC, MORPH, CMP, TROPHS, ADIFF, GFR, LIP, MDW, ANEU #### [address] [address] Total Protein 6.7 G/dL Normal 6.4-8.2 [facility] Comment on above: Order Comment: 05/23 20:12:51 EST hemolyzed. EH Performed By: #### C BC, MORPH, CMP, TROPHS, ADIFF, GFR, LIP, MDW, ANEU #### [address] [address] Urea nitrogen [Mass/Vol] 40 mg/dL High 7-18 [facility] Comment on above: Order Comment: 05/23 20:12:51 EST hemolyzed. EH Performed By: #### C BC, MORPH, CMP, TROPHS, ADIFF, GFR, LIP, MDW, ANEU #### [address] [address] LABORATORYOrdered By: SYSTEM SYSTEM on 05-23-2024 Albumin BCP dye [Mass/Vol] 2.7 G/dL Low 3.5 - 5.0 G/dL AO ADM SS Albumin/Globulin [Mass ratio] 0.7 {ratio} Low 1.1 - 2.5 ratio AO ADM SS ALP [Catalytic activity/Vol] 128 U/L Normal 40 - 135 U/L AO ADM SS ALT With P-5'-P [Catalytic activity/Vol] 22 U/L Normal 14 - 59 U/L AO ADM SS AST With P-5'-P [Catalytic activity/Vol] 21 U/L Normal 10 - 40 U/L AO ADM SS Bilirubin [Mass/Vol] 0.9 mg/dL Normal 0.2 - 1 .0 mg/dL AO ADM SS Comment on above: Interpretive Data: U se of this assay is not recommended for patients undergoing treatment with eltrombopag due to the potential for falsely elevated results. Calcium [Mass/Vol] 8.7 mg/dL Normal 8.4 - 10. 2 mg/dL AO ADM SS Chloride [Moles/Vol] 102 mmol/L Normal 98 - 10 7 mmol/L AO ADM SS CO2 [Moles/Vol] 24 mmol/L Normal 22 - 29 mmol/L AO ADM SS Creatinine [Mass/Vol] 2.02 mg/dL High 0.55 - 1.02 mg/dL AO ADM SS Comment on above: Interpretive Data: T esting performed on Siemens Dimension EXL analyzer using a modified kinetic Breanne technique. Electrolyte Balance 8.0 mEq/L Normal 4.0 - 15 .0 mEq/L AO ADM SS GFR/1.73 sq M.predicted among blacks MDRD (S/P/Bld) [Vol rate/Area] 31 ml/min/1.73sqm Invalid Interpretation Code AO Chemistry S Comment on above: Interpretive Data: GFR Population mean for , Non- Americans Ages 20-29 = 116 mL/min/1.73 sq.m. Ages 30-39 = 107 mL/min/1.73 sq.m. Ages 40-49 = 99 mL/min/1.73 sq.m. Ages 50-59 = 93 mL/min/1.73 sq.m. Ages 60-69 = 85 mL/min/1.73 sq.m. Ages 70+ = 75 mL/min/1.73 sq.m. Chronic Kidney Disease: Less than 60 mL/min/1.73 square meters End Stage Renal Disease: Less than 15 mL/min/1.73 square meters GFR/1.73 sq M.predicted among non-blacks MDRD (S/P/Bld) [Vol rate/Area] 26 ml/min/1.73sqm Invalid Interpretation Code AO Chemistry S Comment on above: Interpretive Data: GFR Population mean for , Non- Americans Ages 20-29 = 116 mL/min/1.73 sq.m. Ages 30-39 = 107 mL/min/1.73 sq.m. Ages 40-49 = 99 mL/min/1.73 sq.m. Ages 50-59 = 93 mL/min/1.73 sq.m. Ages 60-69 = 85 mL/min/1.73 sq.m. Ages 70+ = 75 mL/min/1.73 sq.m. Chronic Kidney Disease: Less than 60 mL/min/1.73 square meters End Stage Renal Disease: Less than 15 mL/min/1.73 square meters Globulin 4.0 G/dL Invalid Interpretation Code AO ADM SS Glucose [Mass/Vol] 181 mg/dL High 70 - 105 mg/dL AO ADM SS Lipase [Catalytic activity/Vol] 56 U/L Normal 16 - 77 U/L AO ADM SS Potassium [Moles/Vol] 5.2 mmol/L High 3.5 - 5.1 mmol/L AO ADM SS Protein [Mass/Vol] 6.7 G/dL Normal 6.4 - 8.2 G/dL AO ADM SS Sodium [Moles/Vol] 134 mmol/L Low 136 - 145 mmol/L AO ADM SS Urea nitrogen [Mass/Vol] 40 mg/dL High 7 - 18 mg/dL AO ADM SS Urea nitrogen/Creatinine [Mass ratio] 20 ratio Normal 7 - 27 ratio AO ADM SS Basophils (Bld) [#/Vol] 0.1 103/mcL Normal 0.0 - 0.2 10^3/mcL AO Workflow SS Basophils/100 WBC (Bld) 0.8 % Normal 0.0 - 2.5 % AO Workflow SS Eosinophil, Absolute 0.2 103/mcL Normal 0.0 - 0 .7 10^3/mcL AO Workflow SS Eosinophils/100 WBC (Bld) 1.1 % Normal 0.0 - 7.0 % AO Workflow SS Erythrocyte distribution width (RBC) [Ratio] 15.3 % Normal 11.5 - 15.5 % AO Workflow SS Hematocrit (Bld) [Volume fraction] 35.1 % Normal 34.0 - 46.0 % AO Workflow SS Hemoglobin (Bld) [Mass/Vol] 11.3 G/dL Low 12.0 - 16.0 G/dL AO Workflow SS Lymphocytes (Bld) [#/Vol] 1.7 103/mcL Normal 0.9 - 4.3 10^3/mcL AO Workflow SS Lymphocytes/100 WBC (Bld) 11.5 % Low 20.0 - 40.0 % AO Workflow SS MCH (RBC) [Entitic mass] 27.2 pg Normal 27.0 - 33.0 pg AO Workflow SS MCHC 32.3 G/dL Normal 32.0 - 36.0 G/dL AO Workflow SS MCV (RBC) [Entitic vol] 84.2 fL Normal 80.0 - 99.0 fL AO Workflow SS Monocyte distribution width Auto (Bld) [Entitic vol] 18.96 1 Normal 0.00 - 20.00 AO Workflow SS Comment on above: Result Comment: For ED adult patients suspected of sepsis, MDW<=20.0 does not rule out sepsis or risk of sepsis Monocytes (Bld) [#/Vol] 0.9 103/mcL Normal 0.1 - 1.4 10^3/mcL AO Workflow SS Monocytes/100 WBC (Bld) 6.2 % Normal 2.0 - 13.0 % AO Workflow SS Neutrophils (Bld) [#/Vol] 11.7 103/mcL High 2.3 - 8.1 10^3/mcL AO Workflow SS Neutrophils/100 WBC (Bld) 80.4 % High 50.0 - 75.0 % AO Workflow SS Platelet mean volume (Bld) [Entitic vol] 7.3 fL Normal 6.6 - 10.5 fL AO Workflow SS Platelets (Bld) [#/Vol] 229 103/mcL Normal 150 - 450 10^3/mcL AO Workflow SS RBC (Bld) [#/Vol] 4.17 106/mcL Normal 4.10 - 5.30 10^6/mcL AO Workflow SS WBC (Bld) [#/Vol] 14.5 103/mcL High 4.5 - 10.8 10^3/mcL AO Workflow SS Troponin I.cardiac DL <= 0.01 ng/mL [Mass/Vol] 18 ng/L Normal 0 - 51 ng/L AO ADM SS Comment on above: Interpretive Data: H igh Sensitive Troponin I Reference Ranges: Female: 0-51 ng/L Male: 0-76 ng/L Testing performed on [employer] using a homogeneous sandwich chemiluminescent immunoassay based on Net Transmit & Receive technology. LABORATORYOrdered By: Yohana Easley on 05-23-2024 Platelets LM Ql (Bld) Normal (05/23/24 8:06 PM) Normal AO Hematology S LIPon 05-23-2024 Lipase Level 56 U/L Normal 16-77 [facility] Comment on above: Performed By: #### C BC, MORPH, CMP, TROPHS, ADIFF, GFR, LIP, MDW, ANEU #### [place] [id number] TROPHSon 05-23-2024 High Sensitivity Troponin I 18 ng/L Normal 0-51 [facility] Comment on above: Result Comment: High Sensitive Troponin I Reference Ranges: Female: 0-51 ng/L Male: 0-76 ng/L Testing performed on Soufun using a homogeneous sandwich chemiluminescent immunoassay based on Net Transmit & Receive technology. Performed By: #### C BC, MORPH, CMP, TROPHS, ADIFF, GFR, LIP, MDW, ANEU #### [address], [place] [address] Basic Metabolic Profile (BMP )on 05-06-2024 BUN Normal 7-18 [facility] Comment on above: Result Comment: Canc elled via OM: Order cancelled - Patient discharged Performed By: #### L 100.0100, L500.2500 ####[facility] [address] [place], [address] BUN/CRE Normal -20 [facility] Comment on above: Result Comment: Canc elled via OM: Order cancelled - Patient discharged Performed By: #### L 100.0100, L500.2500 ####[facility] [address] [place], [address] CA,Total Normal 8.5-10.1 [facility] Comment on above: Result Comment: Canc elled via OM: Order cancelled - Patient discharged Performed By: #### L 100.0100, L500.2500 ####[facility] [address] [place], [address] CL Normal 98-107 [facility] Comment on above: Result Comment: Canc elled via OM: Order cancelled - Patient discharged Performed By: #### L 100.0100, L500.2500 ####[facility] [address] [place], [address] CO2 Normal 21.0-32.0 [facility] Comment on above: Result Comment: Canc elled via OM: Order cancelled - Patient discharged Performed By: #### L 100.0100, L500.2500 ####[facility] [address] [place], [address] CREAT,SERUM Normal 0.55-1.02 [facility] Comment on above: Result Comment: Canc elled via OM: Order cancelled - Patient discharged Performed By: #### L 100.0100, L500.2500 ####[facility] [address] [place], [address] EST GFR Normal >60 [facility] Comment on above: Result Comment: Canc elled via OM: Order cancelled - Patient discharged Performed By: #### L 100.0100, L500.2500 ####[facility] [address] [place], [address] EST GFR - AA Normal >60 [facility] Comment on above: Result Comment: Canc elled via OM: Order cancelled - Patient discharged Performed By: #### L 100.0100, L500.2500 ####[facility] [address] [place], [address] GAP Normal 5-15 [facility] Comment on above: Result Comment: Canc elled via OM: Order cancelled - Patient discharged Performed By: #### L 100.0100, L500.2500 ####[facility] [address] [place], [address] GLU Normal 74-106 [facility] Comment on above: Result Comment: Canc elled via OM: Order cancelled - Patient discharged Performed By: #### L 100.0100, L500.2500 ####[facility] [address] [place], [address] Potassium Normal 3.5-5.1 [facility] Comment on above: Result Comment: Canc elled via OM: Order cancelled - Patient discharged Performed By: #### L 100.0100, L500.2500 ####[facility] [address] [place], [address] Basic Metabolic Profile (BMP) Normal 136-145 [facility] Comment on above: Result Comment: Canc elled via OM: Order cancelled - Patient discharged Performed By: #### L 100.0100, L500.2500 ####[facility] [address] [place], [address] CBC W/Diff, Automatedon 12-0 Absolute Neut Normal 2.0-7.7 [facility] Comment on above: Result Comment: Canc elled via OM: Order cancelled - Patient discharged Performed By: #### L 100.0100, L500.2500 ####[facility] [address] [place], [address] HCT Normal 37-47 [facility] Comment on above: Result Comment: Canc elled via OM: Order cancelled - Patient discharged Performed By: #### L 100.0100, L500.2500 ####[facility] [address] [place], [address] HGB Normal 12.0-15.0 [facility] Comment on above: Result Comment: Canc elled via OM: Order cancelled - Patient discharged Performed By: #### L 100.0100, L500.2500 ####[facility] [address] [place], [address] MCH Normal 27.0-32.0 [facility] Comment on above: Result Comment: Canc elled via OM: Order cancelled - Patient discharged Performed By: #### L 100.0100, L500.2500 ####[facility] [address] [place], [address] MCHC Normal 32-36 [facility] Comment on above: Result Comment: Canc elled via OM: Order cancelled - Patient discharged Performed By: #### L 100.0100, L500.2500 ####[facility] [address] [place], [address] MCV Normal 81-99 [facility] Comment on above: Result Comment: Canc elled via OM: Order cancelled - Patient discharged Performed By: #### L 100.0100, L500.2500 ####[facility] [address] [place], [address] NEUT% Normal 47-70 [facility] Comment on above: Result Comment: Canc elled via OM: Order cancelled - Patient discharged Performed By: #### L 100.0100, L500.2500 ####[facility] [address] [place], [address] PLT Normal 150-450 [facility] Comment on above: Result Comment: Canc elled via OM: Order cancelled - Patient discharged Performed By: #### L 100.0100, L500.2500 ####[facility] [address] [place], [address] RBC Normal 4.2-5.4 [facility] Comment on above: Result Comment: Canc elled via OM: Order cancelled - Patient discharged Performed By: #### L 100.0100, L500.2500 ####[facility] [address] [place], [address] RDW CV Normal 11.6-14.6 [facility] Comment on above: Result Comment: Canc elled via OM: Order cancelled - Patient discharged Performed By: #### L 100.0100, L500.2500 ####[facility] [address] [place], [address] RDW SD Normal 35.1-43.9 [facility] Comment on above: Result Comment: Canc elled via OM: Order cancelled - Patient discharged Performed By: #### L 100.0100, L500.2500 ####[facility] [address] [place], [address] WBC Normal 4.4-11.0 [facility] Comment on above: Result Comment: Canc elled via OM: Order cancelled - Patient discharged Performed By: #### L 100.0100, L500.2500 ####[facility] [address] [place], [address] Basic Metabolic Profile (BMP )on 05-05-2024 BUN Normal 7-18 [facility] Comment on above: Result Comment: Canc elled via OM: Order cancelled - Patient discharged Performed By: #### L 100.0100, L500.2500 ####[facility] [address] [place], [address] BUN/CRE Normal 10-20 [facility] Comment on above: Result Comment: Canc elled via OM: Order cancelled - Patient discharged Performed By: #### L 100.0100, L500.2500 ####[facility] [address] [place], [address] CA,Total Normal 8.5-10.1 [facility] Comment on above: Result Comment: Canc elled via OM: Order cancelled - Patient discharged Performed By: #### L 100.0100, L500.2500 ####[facility] [address] [place], [address] CL Normal 98-107 [facility] Comment on above: Result Comment: Canc elled via OM: Order cancelled - Patient discharged Performed By: #### L 100.0100, L500.2500 ####[facility] [address] [place], [address] CO2 Normal 21.0-32.0 [facility] Comment on above: Result Comment: Canc elled via OM: Order cancelled - Patient discharged Performed By: #### L 100.0100, L500.2500 ####[facility] [address] [place], [address] CREAT,SERUM Normal 0.55-1.02 [facility] Comment on above: Result Comment: Canc elled via OM: Order cancelled - Patient discharged Performed By: #### L 100.0100, L500.2500 ####[facility] [address] [place], [address] EST GFR Normal >60 [facility] Comment on above: Result Comment: Canc elled via OM: Order cancelled - Patient discharged Performed By: #### L 100.0100, L500.2500 ####[facility] [address] [place], [address] EST GFR - AA Normal >60 [facility] Comment on above: Result Comment: Canc elled via OM: Order cancelled - Patient discharged Performed By: #### L 100.0100, L500.2500 ####[facility] [address] [place], [address] GAP Normal 5-15 [facility] Comment on above: Result Comment: Canc elled via OM: Order cancelled - Patient discharged Performed By: #### L 100.0100, L500.2500 ####[facility] [address] [place], [address] GLU Normal 74-106 [facility] Comment on above: Result Comment: Canc elled via OM: Order cancelled - Patient discharged Performed By: #### L 100.0100, L500.2500 ####[facility] [address] [place], [address] Potassium Normal 3.5-5.1 [facility] Comment on above: Result Comment: Canc elled via OM: Order cancelled - Patient discharged Performed By: #### L 100.0100, L500.2500 ####[facility] [address] [place], [address] Basic Metabolic Profile (BMP) Normal 136-145 [facility] Comment on above: Result Comment: Canc elled via OM: Order cancelled - Patient discharged Performed By: #### L 100.0100, L500.2500 ####[facility] [address] [place], [address] CBC W/Diff, Automatedon 12-0 Absolute Neut Normal 2.0-7.7 [facility] Comment on above: Result Comment: Canc elled via OM: Order cancelled - Patient discharged Performed By: #### L 100.0100, L500.2500 ####[facility] [address] [place], [address] HCT Normal 37-47 [facility] Comment on above: Result Comment: Canc elled via OM: Order cancelled - Patient discharged Performed By: #### L 100.0100, L500.2500 ####[facility] [address] [place], [address] HGB Normal 12.0-15.0 [facility] Comment on above: Result Comment: Canc elled via OM: Order cancelled - Patient discharged Performed By: #### L 100.0100, L500.2500 ####[facility] [address] [place], [address] MCH Normal 27.0-32.0 [facility] Comment on above: Result Comment: Canc elled via OM: Order cancelled - Patient discharged Performed By: #### L 100.0100, L500.2500 ####[facility] [address] [place], [address] MCHC Normal 32-36 [facility] Comment on above: Result Comment: Canc elled via OM: Order cancelled - Patient discharged Performed By: #### L 100.0100, L500.2500 ####[facility] [address] [place], [address] MCV Normal 81-99 [facility] Comment on above: Result Comment: Canc elled via OM: Order cancelled - Patient discharged Performed By: #### L 100.0100, L500.2500 ####[facility] [address] [place], [address] NEUT% Normal 47-70 [facility] Comment on above: Result Comment: Canc elled via OM: Order cancelled - Patient discharged Performed By: #### L 100.0100, L500.2500 ####[facility] [address] [place], [address] PLT Normal 150-450 [facility] Comment on above: Result Comment: Canc elled via OM: Order cancelled - Patient discharged Performed By: #### L 100.0100, L500.2500 ####[facility] [address] [place], [address] RBC Normal 4.2-5.4 [facility] Comment on above: Result Comment: Canc elled via OM: Order cancelled - Patient discharged Performed By: #### L 100.0100, L500.2500 ####[facility] [address] [place], [address] RDW CV Normal 11.6-14.6 [facility] Comment on above: Result Comment: Canc elled via OM: Order cancelled - Patient discharged Performed By: #### L 100.0100, L500.2500 ####[facility] [address] [place], [address] RDW SD Normal 35.1-43.9 [facility] Comment on above: Result Comment: Canc elled via OM: Order cancelled - Patient discharged Performed By: #### L 100.0100, L500.2500 ####[facility] [address] [place], [address] WBC Normal 4.4-11.0 [facility] Comment on above: Result Comment: Canc elled via OM: Order cancelled - Patient discharged Performed By: #### L 100.0100, L500.2500 ####[facility] [address] [place], [address] Basic Metabolic Profile (BMP )on 05-04-2024 BUN Normal 7-18 [facility] Comment on above: Result Comment: Canc elled via OM: Order cancelled - Patient discharged Performed By: #### L 100.0100, L500.2500 ####[facility] [address] [place], [address] BUN/CRE Normal 10-20 [facility] Comment on above: Result Comment: Canc elled via OM: Order cancelled - Patient discharged Performed By: #### L 100.0100, L500.2500 ####[facility] [address] [place], [address] CA,Total Normal 8.5-10.1 [facility] Comment on above: Result Comment: Canc elled via OM: Order cancelled - Patient discharged Performed By: #### L 100.0100, L500.2500 ####[facility] [address] [place], [address] CL Normal 98-107 [facility] Comment on above: Result Comment: Canc elled via OM: Order cancelled - Patient discharged Performed By: #### L 100.0100, L500.2500 ####[facility] [address] [place], [address] CO2 Normal 21.0-32.0 [facility] Comment on above: Result Comment: Canc elled via OM: Order cancelled - Patient discharged Performed By: #### L 100.0100, L500.2500 ####[facility] [address] [place], [address] CREAT,SERUM Normal 0.55-1.02 [facility] Comment on above: Result Comment: Canc elled via OM: Order cancelled - Patient discharged Performed By: #### L 100.0100, L500.2500 ####[facility] [address] [place], [address] EST GFR Normal >60 [facility] Comment on above: Result Comment: Canc elled via OM: Order cancelled - Patient discharged Performed By: #### L 100.0100, L500.2500 ####[facility] [address] [place], [address] EST GFR - AA Normal >60 [facility] Comment on above: Result Comment: Canc elled via OM: Order cancelled - Patient discharged Performed By: #### L 100.0100, L500.2500 ####[facility] [address] [place], [address] GAP Normal 5-15 [facility] Comment on above: Result Comment: Canc elled via OM: Order cancelled - Patient discharged Performed By: #### L 100.0100, L500.2500 ####[facility] [address] [place], [address] GLU Normal 74-106 [facility] Comment on above: Result Comment: Canc elled via OM: Order cancelled - Patient discharged Performed By: #### L 100.0100, L500.2500 ####[facility] [address] [place], [address] Potassium Normal 3.5-5.1 [facility] Comment on above: Result Comment: Canc elled via OM: Order cancelled - Patient discharged Performed By: #### L 100.0100, L500.2500 ####[facility] [address] [place], [address] Basic Metabolic Profile (BMP) Normal 136-145 [facility] Comment on above: Result Comment: Canc elled via OM: Order cancelled - Patient discharged Performed By: #### L 100.0100, L500.2500 ####[facility] [address] [place], [address] CBC W/Diff, Automatedon 12-0 Absolute Neut Normal 2.0-7.7 [facility] Comment on above: Result Comment: Canc elled via OM: Order cancelled - Patient discharged Performed By: #### L 100.0100, L500.2500 ####[facility] [address] [place], [address] HCT Normal 37-47 [facility] Comment on above: Result Comment: Canc elled via OM: Order cancelled - Patient discharged Performed By: #### L 100.0100, L500.2500 ####[facility] [address] [place], [address] HGB Normal 12.0-15.0 [facility] Comment on above: Result Comment: Canc elled via OM: Order cancelled - Patient discharged Performed By: #### L 100.0100, L500.2500 ####[facility] [address] [place], [address] MCH Normal 27.0-32.0 [facility] Comment on above: Result Comment: Canc elled via OM: Order cancelled - Patient discharged Performed By: #### L 100.0100, L500.2500 ####[facility] [address] [place], [address] MCHC Normal 32-36 [facility] Comment on above: Result Comment: Canc elled via OM: Order cancelled - Patient discharged Performed By: #### L 100.0100, L500.2500 ####[facility] [address] [place], [address] MCV Normal 81-99 [facility] Comment on above: Result Comment: Canc elled via OM: Order cancelled - Patient discharged Performed By: #### L 100.0100, L500.2500 ####[facility] [address] [place], [address] NEUT% Normal 47-70 [facility] Comment on above: Result Comment: Canc elled via OM: Order cancelled - Patient discharged Performed By: #### L 100.0100, L500.2500 ####[facility] [address] [place], [address] PLT Normal 150-450 [facility] Comment on above: Result Comment: Canc elled via OM: Order cancelled - Patient discharged Performed By: #### L 100.0100, L500.2500 ####[facility] [address] [place], [address] RBC Normal 4.2-5.4 [facility] Comment on above: Result Comment: Canc elled via OM: Order cancelled - Patient discharged Performed By: #### L 100.0100, L500.2500 ####[facility] [address] [place], [address] RDW CV Normal 11.6-14.6 [facility] Comment on above: Result Comment: Canc elled via OM: Order cancelled - Patient discharged Performed By: #### L 100.0100, L500.2500 ####[facility] [address] [place], [address] RDW SD Normal 35.1-43.9 [facility] Comment on above: Result Comment: Canc elled via OM: Order cancelled - Patient discharged Performed By: #### L 100.0100, L500.2500 ####[facility] [address] [place], [address] WBC Normal 4.4-11.0 [facility] Comment on above: Result Comment: Canc elled via OM: Order cancelled - Patient discharged Performed By: #### L 100.0100, L500.2500 ####[facility] [address] [place], [address] Basic Metabolic Profile (BMP )on 05-03-2024 BUN Normal 7-18 [facility] Comment on above: Result Comment: Canc elled via OM: Order cancelled - Patient discharged Performed By: #### L 500.2500, L100.0100 ####[facility] [address] [place], [address] BUN/CRE Normal 10-20 [facility] Comment on above: Result Comment: Canc elled via OM: Order cancelled - Patient discharged Performed By: #### L 500.2500, L100.0100 ####[facility] [address] [place], [address] CA,Total Normal 8.5-10.1 [facility] Comment on above: Result Comment: Canc elled via OM: Order cancelled - Patient discharged Performed By: #### L 500.2500, L100.0100 ####[facility] [address] [place], [address] CL Normal 98-107 [facility] Comment on above: Result Comment: Canc elled via OM: Order cancelled - Patient discharged Performed By: #### L 500.2500, L100.0100 ####[facility] [address] [place], [address] CO2 Normal 21.0-32.0 [facility] Comment on above: Result Comment: Canc elled via OM: Order cancelled - Patient discharged Performed By: #### L 500.2500, L100.0100 ####[facility] [address] [place], [address] CREAT,SERUM Normal 0.55-1.02 [facility] Comment on above: Result Comment: Canc elled via OM: Order cancelled - Patient discharged Performed By: #### L 500.2500, L100.0100 ####[facility] [address] [place], [address] EST GFR Normal >60 [facility] Comment on above: Result Comment: Canc elled via OM: Order cancelled - Patient discharged Performed By: #### L 500.2500, L100.0100 ####[facility] [address] [place], [address] EST GFR - AA Normal >60 [facility] Comment on above: Result Comment: Canc elled via OM: Order cancelled - Patient discharged Performed By: #### L 500.2500, L100.0100 ####[facility] [address] [place], [address] GAP Normal 5-15 [facility] Comment on above: Result Comment: Canc elled via OM: Order cancelled - Patient discharged Performed By: #### L 500.2500, L100.0100 ####[facility] [address] [place], [address] GLU Normal 74-106 [facility] Comment on above: Result Comment: Canc elled via OM: Order cancelled - Patient discharged Performed By: #### L 500.2500, L100.0100 ####[facility] [address] [place], [address] Potassium Normal 3.5-5.1 [facility] Comment on above: Result Comment: Canc elled via OM: Order cancelled - Patient discharged Performed By: #### L 500.2500, L100.0100 ####[facility] [address] [place], [address] Basic Metabolic Profile (BMP) Normal 136-145 [facility] Comment on above: Result Comment: Canc elled via OM: Order cancelled - Patient discharged Performed By: #### L 500.2500, L100.0100 ####[facility] [address] [place], [address] CBC W/Diff, Automatedon 11-3 0-2023 Absolute Neut Normal 2.0-7.7 [facility] Comment on above: Result Comment: Canc elled via OM: Order cancelled - Patient discharged Performed By: #### L 500.2500, L100.0100 ####[facility] [address] [place], [address] HCT Normal 37-47 [facility] Comment on above: Result Comment: Canc elled via OM: Order cancelled - Patient discharged Performed By: #### L 500.2500, L100.0100 ####[facility] [address] [place], [address] HGB Normal 12.0-15.0 [facility] Comment on above: Result Comment: Canc elled via OM: Order cancelled - Patient discharged Performed By: #### L 500.2500, L100.0100 ####[facility] [address] [place], [address] MCH Normal 27.0-32.0 [facility] Comment on above: Result Comment: Canc elled via OM: Order cancelled - Patient discharged Performed By: #### L 500.2500, L100.0100 ####[facility] [address] [place], [address] MCHC Normal 32-36 [facility] Comment on above: Result Comment: Canc elled via OM: Order cancelled - Patient discharged Performed By: #### L 500.2500, L100.0100 ####[facility] [address] [place], [address] MCV Normal 81-99 [facility] Comment on above: Result Comment: Canc elled via OM: Order cancelled - Patient discharged Performed By: #### L 500.2500, L100.0100 ####[facility] [address] [place], [address] NEUT% Normal 47-70 [facility] Comment on above: Result Comment: Canc elled via OM: Order cancelled - Patient discharged Performed By: #### L 500.2500, L100.0100 ####[facility] [address] [place], [address] PLT Normal 150-450 [facility] Comment on above: Result Comment: Canc elled via OM: Order cancelled - Patient discharged Performed By: #### L 500.2500, L100.0100 ####[facility] [address] [place], [address] RBC Normal 4.2-5.4 [facility] Comment on above: Result Comment: Canc elled via OM: Order cancelled - Patient discharged Performed By: #### L 500.2500, L100.0100 ####[facility] [address] [place], [address] RDW CV Normal 11.6-14.6 [facility] Comment on above: Result Comment: Canc elled via OM: Order cancelled - Patient discharged Performed By: #### L 500.2500, L100.0100 ####[facility] [address] [place], [address] RDW SD Normal 35.1-43.9 [facility] Comment on above: Result Comment: Canc elled via OM: Order cancelled - Patient discharged Performed By: #### L 500.2500, L100.0100 ####[facility] [address] [place], [address] WBC Normal 4.4-11.0 [facility] Comment on above: Result Comment: Canc elled via OM: Order cancelled - Patient discharged Performed By: #### L 500.2500, L100.0100 ####[facility] [address] [place], [address] Basic Metabolic Profile (BMP )on 05-02-2024 BUN Normal 7-18 [facility] Comment on above: Result Comment: Canc elled via OM: Order cancelled - Patient discharged Performed By: #### L 500.2500, L100.0100 ####[facility] [address] [place], [address] BUN/CRE Normal 10-20 [facility] Comment on above: Result Comment: Canc elled via OM: Order cancelled - Patient discharged Performed By: #### L 500.2500, L100.0100 ####[facility] [address] [place], [address] CA,Total Normal 8.5-10.1 [facility] Comment on above: Result Comment: Canc elled via OM: Order cancelled - Patient discharged Performed By: #### L 500.2500, L100.0100 ####[facility] [address] [place], [address] CL Normal 98-107 [facility] Comment on above: Result Comment: Canc elled via OM: Order cancelled - Patient discharged Performed By: #### L 500.2500, L100.0100 ####[facility] [address] [place], [address] CO2 Normal 21.0-32.0 [facility] Comment on above: Result Comment: Canc elled via OM: Order cancelled - Patient discharged Performed By: #### L 500.2500, L100.0100 ####[facility] [address] [place], [address] CREAT,SERUM Normal 0.55-1.02 [facility] Comment on above: Result Comment: Canc elled via OM: Order cancelled - Patient discharged Performed By: #### L 500.2500, L100.0100 ####[facility] [address] [place], [address] EST GFR Normal >60 [facility] Comment on above: Result Comment: Canc elled via OM: Order cancelled - Patient discharged Performed By: #### L 500.2500, L100.0100 ####[facility] [address] [place], [address] EST GFR - AA Normal >60 [facility] Comment on above: Result Comment: Canc elled via OM: Order cancelled - Patient discharged Performed By: #### L 500.2500, L100.0100 ####[facility] [address] [place], [address] GAP Normal 5-15 [facility] Comment on above: Result Comment: Canc elled via OM: Order cancelled - Patient discharged Performed By: #### L 500.2500, L100.0100 ####[facility] [address] [place], [address] GLU Normal 74-106 [facility] Comment on above: Result Comment: Canc elled via OM: Order cancelled - Patient discharged Performed By: #### L 500.2500, L100.0100 ####[facility] [address] [place], [address] Potassium Normal 3.5-5.1 [facility] Comment on above: Result Comment: Canc elled via OM: Order cancelled - Patient discharged Performed By: #### L 500.2500, L100.0100 ####[facility] [address] [place], [address] Basic Metabolic Profile (BMP) Normal 136-145 [facility] Comment on above: Result Comment: Canc elled via OM: Order cancelled - Patient discharged Performed By: #### L 500.2500, L100.0100 ####[facility] [address] [place], [address] CBC W/Diff, Automatedon 11-2 Absolute Neut Normal 2.0-7.7 [facility] Comment on above: Result Comment: Canc elled via OM: Order cancelled - Patient discharged Performed By: #### L 500.2500, L100.0100 ####[facility] [address] [place], [address] HCT Normal 37-47 [facility] Comment on above: Result Comment: Canc elled via OM: Order cancelled - Patient discharged Performed By: #### L 500.2500, L100.0100 ####[facility] [address] [place], [address] HGB Normal 12.0-15.0 [facility] Comment on above: Result Comment: Canc elled via OM: Order cancelled - Patient discharged Performed By: #### L 500.2500, L100.0100 ####[facility] [address] [place], [address] MCH Normal 27.0-32.0 [facility] Comment on above: Result Comment: Canc elled via OM: Order cancelled - Patient discharged Performed By: #### L 500.2500, L100.0100 ####[facility] [address] [place], [address] MCHC Normal 32-36 [facility] Comment on above: Result Comment: Canc elled via OM: Order cancelled - Patient discharged Performed By: #### L 500.2500, L100.0100 ####[facility] [address] [place], [address] MCV Normal 81-99 [facility] Comment on above: Result Comment: Canc elled via OM: Order cancelled - Patient discharged Performed By: #### L 500.2500, L100.0100 ####[facility] [address] [place], [address] NEUT% Normal 47-70 [facility] Comment on above: Result Comment: Canc elled via OM: Order cancelled - Patient discharged Performed By: #### L 500.2500, L100.0100 ####[facility] [address] [place], [address] PLT Normal 150-450 [facility] Comment on above: Result Comment: Canc elled via OM: Order cancelled - Patient discharged Performed By: #### L 500.2500, L100.0100 ####[facility] [address] [place], [address] RBC Normal 4.2-5.4 [facility] Comment on above: Result Comment: Canc elled via OM: Order cancelled - Patient discharged Performed By: #### L 500.2500, L100.0100 ####[facility] [address] [place], [address] RDW CV Normal 11.6-14.6 [facility] Comment on above: Result Comment: Canc elled via OM: Order cancelled - Patient discharged Performed By: #### L 500.2500, L100.0100 ####[facility] [address] [place], [address] RDW SD Normal 35.1-43.9 [facility] Comment on above: Result Comment: Canc elled via OM: Order cancelled - Patient discharged Performed By: #### L 500.2500, L100.0100 ####[facility] [address] [place], [address] WBC Normal 4.4-11.0 [facility] Comment on above: Result Comment: Canc elled via OM: Order cancelled - Patient discharged Performed By: #### L 500.2500, L100.0100 ####[facility] [address] [place], [address] Basic Metabolic Profile (BMP )on 05-01-2024 BUN Normal 7-18 [facility] Comment on above: Result Comment: Canc elled via OM: Order cancelled - Patient discharged Performed By: #### L 100.0100, L500.2500 ####[facility] [address] [place], [address] BUN/CRE Normal 10-20 [facility] Comment on above: Result Comment: Canc elled via OM: Order cancelled - Patient discharged Performed By: #### L 100.0100, L500.2500 ####[facility] [address] [place], [address] CA,Total Normal 8.5-10.1 [facility] Comment on above: Result Comment: Canc elled via OM: Order cancelled - Patient discharged Performed By: #### L 100.0100, L500.2500 ####[facility] [address] [place], [address] CL Normal 98-107 [facility] Comment on above: Result Comment: Canc elled via OM: Order cancelled - Patient discharged Performed By: #### L 100.0100, L500.2500 ####[facility] [address] [place], [address] CO2 Normal 21.0-32.0 [facility] Comment on above: Result Comment: Canc elled via OM: Order cancelled - Patient discharged Performed By: #### L 100.0100, L500.2500 ####[facility] [address] [place], [address] CREAT,SERUM Normal 0.55-1.02 [facility] Comment on above: Result Comment: Canc elled via OM: Order cancelled - Patient discharged Performed By: #### L 100.0100, L500.2500 ####[facility] [address] [place], [address] EST GFR Normal >60 [facility] Comment on above: Result Comment: Canc elled via OM: Order cancelled - Patient discharged Performed By: #### L 100.0100, L500.2500 ####[facility] [address] [place], [address] EST GFR - AA Normal >60 [facility] Comment on above: Result Comment: Canc elled via OM: Order cancelled - Patient discharged Performed By: #### L 100.0100, L500.2500 ####[facility] [address] [place], [address] GAP Normal 5-15 [facility] Comment on above: Result Comment: Canc elled via OM: Order cancelled - Patient discharged Performed By: #### L 100.0100, L500.2500 ####[facility] [address] [place], [address] GLU Normal 74-106 [facility] Comment on above: Result Comment: Canc elled via OM: Order cancelled - Patient discharged Performed By: #### L 100.0100, L500.2500 ####[facility] [address] [place], [address] Potassium Normal 3.5-5.1 [facility] Comment on above: Result Comment: Canc elled via OM: Order cancelled - Patient discharged Performed By: #### L 100.0100, L500.2500 ####[facility] [address] [place], [address] Basic Metabolic Profile (BMP) Normal 136-145 [facility] Comment on above: Result Comment: Canc elled via OM: Order cancelled - Patient discharged Performed By: #### L 100.0100, L500.2500 ####[facility] [address] [place], [address] CBC W/Diff, Automatedon - Absolute Neut Normal 2.0-7.7 [facility] Comment on above: Result Comment: Canc elled via OM: Order cancelled - Patient discharged Performed By: #### L 100.0100, L500.2500 ####[facility] [address] [place], [address] HCT Normal 37-47 [facility] Comment on above: Result Comment: Canc elled via OM: Order cancelled - Patient discharged Performed By: #### L 100.0100, L500.2500 ####[facility] [address] [place], [address] HGB Normal 12.0-15.0 [facility] Comment on above: Result Comment: Canc elled via OM: Order cancelled - Patient discharged Performed By: #### L 100.0100, L500.2500 ####[facility] [address] [place], [address] MCH Normal 27.0-32.0 [facility] Comment on above: Result Comment: Canc elled via OM: Order cancelled - Patient discharged Performed By: #### L 100.0100, L500.2500 ####[facility] [address] [place], [address] MCHC Normal 32-36 [facility] Comment on above: Result Comment: Canc elled via OM: Order cancelled - Patient discharged Performed By: #### L 100.0100, L500.2500 ####[facility] [address] [place], [address] MCV Normal 81-99 [facility] Comment on above: Result Comment: Canc elled via OM: Order cancelled - Patient discharged Performed By: #### L 100.0100, L500.2500 ####[facility] [address] [place], [address] NEUT% Normal 47-70 [facility] Comment on above: Result Comment: Canc elled via OM: Order cancelled - Patient discharged Performed By: #### L 100.0100, L500.2500 ####[facility] [address] [place], [address] PLT Normal 150-450 [facility] Comment on above: Result Comment: Canc elled via OM: Order cancelled - Patient discharged Performed By: #### L 100.0100, L500.2500 ####[facility] [address] [place], [address] RBC Normal 4.2-5.4 [facility] Comment on above: Result Comment: Canc elled via OM: Order cancelled - Patient discharged Performed By: #### L 100.0100, L500.2500 ####[facility] [address] [place], [address] RDW CV Normal 11.6-14.6 [facility] Comment on above: Result Comment: Canc elled via OM: Order cancelled - Patient discharged Performed By: #### L 100.0100, L500.2500 ####[facility] [address] [place], [address] RDW SD Normal 35.1-43.9 [facility] Comment on above: Result Comment: Canc elled via OM: Order cancelled - Patient discharged Performed By: #### L 100.0100, L500.2500 ####[facility] [address] [place], [address] WBC Normal 4.4-11.0 [facility] Comment on above: Result Comment: Canc elled via OM: Order cancelled - Patient discharged Performed By: #### L 100.0100, L500.2500 ####[facility] [address] [place], [address] Basic Metabolic Profile (BMP )on 04-30-2024 BUN Normal 7-18 [facility] Comment on above: Result Comment: Canc elled via OM: Order cancelled - Patient discharged Performed By: #### L 500.2500, L100.0100 ####[facility] [address] [place], [address] BUN/CRE Normal 10-20 [facility] Comment on above: Result Comment: Canc elled via OM: Order cancelled - Patient discharged Performed By: #### L 500.2500, L100.0100 ####[facility] [address] [place], [address] CA,Total Normal 8.5-10.1 [facility] Comment on above: Result Comment: Canc elled via OM: Order cancelled - Patient discharged Performed By: #### L 500.2500, L100.0100 ####[facility] [address] [place], [address] CL Normal 98-107 [facility] Comment on above: Result Comment: Canc elled via OM: Order cancelled - Patient discharged Performed By: #### L 500.2500, L100.0100 ####[facility] [address] [place], [address] CO2 Normal 21.0-32.0 [facility] Comment on above: Result Comment: Canc elled via OM: Order cancelled - Patient discharged Performed By: #### L 500.2500, L100.0100 ####[facility] [address] [place], [address] CREAT,SERUM Normal 0.55-1.02 [facility] Comment on above: Result Comment: Canc elled via OM: Order cancelled - Patient discharged Performed By: #### L 500.2500, L100.0100 ####[facility] [address] [place], [address] EST GFR Normal >60 [facility] Comment on above: Result Comment: Canc elled via OM: Order cancelled - Patient discharged Performed By: #### L 500.2500, L100.0100 ####[facility] [address] [place], [address] EST GFR - AA Normal >60 [facility] Comment on above: Result Comment: Canc elled via OM: Order cancelled - Patient discharged Performed By: #### L 500.2500, L100.0100 ####[facility] [address] [place], [address] GAP Normal 5-15 [facility] Comment on above: Result Comment: Canc elled via OM: Order cancelled - Patient discharged Performed By: #### L 500.2500, L100.0100 ####[facility] [address] [place], [address] GLU Normal 74-106 [facility] Comment on above: Result Comment: Canc elled via OM: Order cancelled - Patient discharged Performed By: #### L 500.2500, L100.0100 ####[facility] [address] [place], [address] Potassium Normal 3.5-5.1 [facility] Comment on above: Result Comment: Canc elled via OM: Order cancelled - Patient discharged Performed By: #### L 500.2500, L100.0100 ####[facility] [address] [place], [address] Basic Metabolic Profile (BMP) Normal 136-145 [facility] Comment on above: Result Comment: Canc elled via OM: Order cancelled - Patient discharged Performed By: #### L 500.2500, L100.0100 ####[facility] [address] [place], [address] CBC W/Diff, Automatedon 11- Absolute Neut Normal 2.0-7.7 [facility] Comment on above: Result Comment: Canc elled via OM: Order cancelled - Patient discharged Performed By: #### L 500.2500, L100.0100 ####[facility] [address] [place], [address] HCT Normal 37-47 [facility] Comment on above: Result Comment: Canc elled via OM: Order cancelled - Patient discharged Performed By: #### L 500.2500, L100.0100 ####[facility] [address] [place], [address] HGB Normal 12.0-15.0 [facility] Comment on above: Result Comment: Canc elled via OM: Order cancelled - Patient discharged Performed By: #### L 500.2500, L100.0100 ####[facility] [address] [place], [address] MCH Normal 27.0-32.0 [facility] Comment on above: Result Comment: Canc elled via OM: Order cancelled - Patient discharged Performed By: #### L 500.2500, L100.0100 ####[facility] [address] [place], [address] MCHC Normal 32-36 [facility] Comment on above: Result Comment: Canc elled via OM: Order cancelled - Patient discharged Performed By: #### L 500.2500, L100.0100 ####[facility] [address] [place], [address] MCV Normal 81-99 [facility] Comment on above: Result Comment: Canc elled via OM: Order cancelled - Patient discharged Performed By: #### L 500.2500, L100.0100 ####[facility] [address] [place], [address] NEUT% Normal 47-70 [facility] Comment on above: Result Comment: Canc elled via OM: Order cancelled - Patient discharged Performed By: #### L 500.2500, L100.0100 ####[facility] [address] [place], [address] PLT Normal 150-450 [facility] Comment on above: Result Comment: Canc elled via OM: Order cancelled - Patient discharged Performed By: #### L 500.2500, L100.0100 ####[facility] [address] [place], [address] RBC Normal 4.2-5.4 [facility] Comment on above: Result Comment: Canc elled via OM: Order cancelled - Patient discharged Performed By: #### L 500.2500, L100.0100 ####[facility] [address] [place], [address] RDW CV Normal 11.6-14.6 [facility] Comment on above: Result Comment: Canc elled via OM: Order cancelled - Patient discharged Performed By: #### L 500.2500, L100.0100 ####[facility] [address] [place], [address] RDW SD Normal 35.1-43.9 [facility] Comment on above: Result Comment: Canc elled via OM: Order cancelled - Patient discharged Performed By: #### L 500.2500, L100.0100 ####[facility] [address] [place], [address] WBC Normal 4.4-11.0 [facility] Comment on above: Result Comment: Canc elled via OM: Order cancelled - Patient discharged Performed By: #### L 500.2500, L100.0100 ####[facility] [address] [place], [address] Absolute neutrophil countOrd ered By: Talisha Boykin on 04-29-2024 Absolute neutrophil count 7.8 X10^3/uL High 2.0-7.7 [facility] Basic Metabolic Profile (BMP )on 04-29-2024 BUN/CRE 31.5 RATIO High 10-20 [facility] Comment on above: Performed By: #### L 100.0100, L500.2500 ####[facility] [address] [place], [address] CA,Total 8.1 mg/dL Low 8.5-10.1 [facility] Comment on above: Performed By: #### L 100.0100, L500.2500 ####[facility] [address] [place], [address] Chloride [Moles/Vol] 104 mmol/L Normal 98-107 [facility] Comment on above: Performed By: #### L 100.0100, L500.2500 ####[facility] [address] [place], [address] CO2 [Moles/Vol] 27.0 mmol/L Normal 21.0-32.0 [facility] Comment on above: Performed By: #### L 100.0100, L500.2500 ####[facility] [address] [place], [address] Creatinine [Mass/Vol] 0.70 mg/dL Normal 0.55-1.02 [facility] Comment on above: Result Comment: The validity of the calculated GFR GFRAA in patients over70 years has not been determined. Clinical correlation isessential. Performed By: #### L 100.0100, L500.2500 ####[facility] [address] [place], [address] ECRCL 91.42 ml/min Normal [facility] Comment on above: Performed By: #### L 100.0100, L500.2500 ####[facility] [address] [place], [address] EST GFR - AA 113 mL/min Normal >60 [facility] Comment on above: Result Comment: Afri can [place] GFR Calc Performed By: #### L 100.0100, L500.2500 ####[facility] [address] [place], [address] GAP 4 Low 5-15 [facility] Comment on above: Performed By: #### L 100.0100, L500.2500 ####[facility] [address] [place], [address] GFR/1.73 sq M.predicted among non-blacks MDRD (S/P/Bld) [Vol rate/Area] 94 mL/min/{1.73_m2} Normal >60 [facility] Comment on above: Result Comment: Non- GFR Calc Performed By: #### L 100.0100, L500.2500 ####[facility] [address] [place], [address] Glucose [Mass/Vol] 231 mg/dL High 74-106 [facility] Comment on above: Result Comment: Gluc ose result greater than or equal to 200 mg/dLsuggests DIABETES MELLITUS per A.D.A. criteria. Performed By: #### L 100.0100, L500.2500 ####[facility] [address] [place], [address] Potassium [Moles/Vol] 4.7 mmol/L Normal 3.5-5.1 [facility] Comment on above: Performed By: #### L 100.0100, L500.2500 ####[facility] [address] [place], [address] Sodium [Moles/Vol] 134 mmol/L Low 136-145 [facility] Comment on above: Performed By: #### L 100.0100, L500.2500 ####[facility] [address] [place], [address] Urea nitrogen [Mass/Vol] 22 mg/dL High 7-18 [facility] Comment on above: Performed By: #### L 100.0100, L500.2500 ####[facility] [address] [place], [address] Basophil percentageOrdered B y: Talisha Boykin on 04-29-2024 Basophil percentage 0.5 % 0-1 [facility] Bedside Glucoseon 04-29-2024 FINGERSTICK GLU 277 mg/dL High 74-106 [facility] Comment on above: Result Comment: TALIA CHAMBERS OF PATIENT CARE PER NURSING PROTOCOL Performed By: #### L 501.080 ####[facility] [address] [place], [address] Blood urea nitrogen (BUN)/cr eatinine ratioOrdered By: Talisha Boykin on 04-29-2024 Blood urea nitrogen (BUN)/creatinine ratio 31.5 RATIO High 10-20 [facility] CBC W/Diff, Automatedon 11-2 Absolute Lymph 1.93 X10 3/uL Normal 0.83-4.51 [facility] Comment on above: Performed By: #### L 100.0100, L500.2500 ####[facility] [address] [place], [address] Absolute Neut 7.8 X10 3/uL High 2.0-7.7 [facility] Comment on above: Performed By: #### L 100.0100, L500.2500 ####[facility] [address] [place], [address] Basophils/100 WBC (Bld) 0.5 % Normal 0-1 [facility] Comment on above: Performed By: #### L 100.0100, L500.2500 ####[facility] [address] [place], [address] Eosinophils/100 WBC (Bld) 0.8 % Normal 0-5 [facility] Comment on above: Performed By: #### L 100.0100, L500.2500 ####[facility] [address] [place], [address] Erythrocyte distribution width (RBC) [Ratio] 13.6 % Normal 11.6-14.6 [facility] Comment on above: Performed By: #### L 100.0100, L500.2500 ####[facility] [address] [place], [address] Hematocrit (Bld) [Volume fraction] 34.3 % Low 37-47 [facility] Comment on above: Performed By: #### L 100.0100, L500.2500 ####[facility] [address] [place], [address] Hemoglobin (Bld) [Mass/Vol] 11.2 g/dL Low 12.0-15.0 [facility] Comment on above: Performed By: #### L 100.0100, L500.2500 ####[facility] [address] [place], [address] IG% 1.100 High 0.0-0.9 [facility] Comment on above: Result Comment: IG% - Immature Granulocytes (promyelocytes, myelocytes andmetamyelocytes) > 1% indicates that a LEFT SHIFT is Present. Performed By: #### L 100.0100, L500.2500 ####[facility] [address] [place], [address] Lymphocytes/100 WBC (Bld) 18.4 % Low 19-41 [facility] Comment on above: Performed By: #### L 100.0100, L500.2500 ####[facility] [address] [place], [address] MCH (RBC) [Entitic mass] 27.2 pg Normal 27.0-32.0 [facility] Comment on above: Performed By: #### L 100.0100, L500.2500 ####[facility] [address] [place], [address] MCHC (RBC) [Mass/Vol] 32.7 g/dL Normal 32-36 [facility] Comment on above: Performed By: #### L 100.0100, L500.2500 ####[facility] [address] [place], [address] MCV (RBC) [Entitic vol] 83.3 fL Normal 81-99 [facility] Comment on above: Performed By: #### L 100.0100, L500.2500 ####[facility] [address] [place], [address] Monocytes/100 WBC (Bld) 4.8 % Normal 0-10 [facility] Comment on above: Performed By: #### L 100.0100, L500.2500 ####[facility] [address] [place], [address] Neutrophils/100 WBC (Bld) 74.4 % High 47-70 [facility] Comment on above: Performed By: #### L 100.0100, L500.2500 ####[facility] [address] [place], [address] Nucleated RBC (Bld) [#/Vol] 0 10*3/uL Normal 0-5 [facility] Comment on above: Performed By: #### L 100.0100, L500.2500 ####[facility] [address] [place], [address] Platelet mean volume (Bld) [Entitic vol] 9.6 fL Normal 6.2-12.0 [facility] Comment on above: Performed By: #### L 100.0100, L500.2500 ####[facility] [address] [place], [address] Platelets (Bld) [#/Vol] 312 10*3/uL Normal 150-450 [facility] Comment on above: Performed By: #### L 100.0100, L500.2500 ####[facility] [address] [place], [address] RBC (Bld) [#/Vol] 4.12 10*6/uL Low 4.2-5.4 [facility] Comment on above: Performed By: #### L 100.0100, L500.2500 ####[facility] [address] [place], [address] RDW SD 41.0 fl Normal 35.1-43.9 [facility] Comment on above: Performed By: #### L 100.0100, L500.2500 ####[facility] [address] [place], [address] WBC (Bld) [#/Vol] 10.5 10*3/uL Normal 4.4-11.0 [facility] Comment on above: Performed By: #### L 100.0100, L500.2500 ####[facility] [address] [place], [address] Calcium [Mass/Vol]Ordered By : Talisha Boykin on 04-29-2024 Serum or plasma calcium measurement (mass/volume) 8.1 mg/dL Low 8.5-10.1 [facility] Carbon dioxide measurementOr dered By: Talisha Boykin on 04-29-2024 Carbon dioxide measurement 27.0 mmol/L 21.0-32.0 [facility] Chloride measurementOrdered By: Talisha Boykin on 04-29-2024 Chloride measurement 104 mmol/L 98-107 [facility] Creatinine [Mass/Vol]Ordered By: Talisha Boykin on 04-29-2024 Serum or plasma creatinine measurement (mass/volume) 0.70 mg/dL 0.55-1.02 [facility] Eosinophil percentageOrdered By: Talisha Boykin on 04-29-2024 Eosinophil percentage 0.8 % 0-5 [facility] Erythrocyte distribution wid th (RBC) [Entitic vol]Ordered By: Talisha Boykin on 04-29-2024 Erythrocyte distribution width standard deviation 41.0 fl 35.1-43.9 [facility] Erythrocyte distribution wid th (RBC) [Ratio]Ordered By: Talishaneville Boykin on 04-29-2024 Erythrocyte distribution width ratio 13.6 % 11.6-14.6 [facility] Estimated glomerular filtrat ion rate (GFR) AmericanOrdered By: Talisha Boykin on 04-29-2024 Estimated glomerular filtration rate (GFR) 113 mL/min >60 [facility] Estimation of creatinine sylvain aranceOrdered By: Talisha Boykin on 04-29-2024 Estimation of creatinine clearance 91.42 ml/min [facility] Glomerular filtration rate ( GFR) estimationOrdered By: Talisha Boykin on 04-29-2024 Glomerular filtration rate (GFR) estimation 94 mL/min >60 [facility] Glucose measurementOrdered B y: Talisha Boykin on 04-29-2024 Glucose measurement 231 mg/dL High 74-106 [facility] Glucose measurement at bedsi deOrdered By: Talisha Boykin 04-29-2024 Glucose measurement at bedside 277 mg/dL High 74-106 [facility] Hematocrit Auto (Bld) [Volum e fraction]Ordered By: Talisha Boykin on 04-29-2024 Automated blood hematocrit (percentage) 34.3 % Low 37-47 [facility] Hemoglobin measurementOrdere d By: Talisha Boykin on 04-29-2024 Hemoglobin measurement 11.2 g/dL Low 12.0-15.0 [facility] Immature granulocytes/100 WB C Auto (Bld)Ordered By: Talisha Boykin on 04-29-2024 Automated immature granulocyte percentage 1.100 % High 0.0-0.9 [facility] Lymphocytes Auto (Unsp spec) [#/Vol]Ordered By: Talisha Boykin on 04-29-2024 Absolute lymphocyte count 1.93 X10^3/uL 0.83-4.51 [facility] Lymphocytes/100 WBC Auto (Un sp spec)Ordered By: Talisha Boykin on 04-29-2024 Automated lymphocyte count as percentage of total leukocytes 18.4 % Low 19-41 [facility] MCV (RBC) [Entitic vol]Order ed By: Talisha Boykin on 04-29-2024 MCV (mean corpuscular volume) determination 83.3 fL 81-99 [facility] Mean corpuscular hemoglobin (MCH) determinationOrdered By: Talisha Boykin on 04-29-2024 Mean corpuscular hemoglobin (MCH) determination 27.2 pg 27.0-32.0 [facility] Mean corpuscular hemoglobin concentration (MCHC) determinationOrdered By: Talisha Boykin on 04-29-2024 Mean corpuscular hemoglobin concentration (MCHC) determination 32.7 g/dL 32-36 [facility] Mean platelet volume determi nationOrdered By: Talisha Boykin on 04-29-2024 Mean platelet volume determination 9.6 fl 6.2-12.0 [facility] Monocyte percentageOrdered B y: Talisha Boykin on 04-29-2024 Monocyte percentage 4.8 % 0-10 [facility] Neutrophil percentageOrdered By: Talisha Boykin on 04-29-2024 Neutrophil percentage 74.4 % High 47-70 [facility] Nucleated red blood cell per centageOrdered By: Talisha Boykin on 04-29-2024 Nucleated red blood cell percentage 0 % 0-5 [facility] Platelet countOrdered By: Na na Ashutosh on 04-29-2024 Platelet count 312 K/mm3 150-450 [facility] Potassium measurementOrdered By: Talisha Boykin on 04-29-2024 Potassium measurement 4.7 mmol/L 3.5-5.1 [facility] RBC Auto (Bld) [#/Vol]Ordere d By: Talisha Boykin on 04-29-2024 Automated blood erythrocyte count 4.12 M/mm3 Low 4.2-5.4 [facility] Serum anion gap measurementO rdered By: Talisha Boykin on 04-29-2024 Serum anion gap measurement 4 Low 5-15 [facility] Sodium levelOrdered By: Talisha Boykin on 04-29-2024 Sodium level 134 mmol/L Low 136-145 [facility] Urea nitrogen [Mass/Vol]Orde red By: Talisha Boykin on 04-29-2024 Serum or plasma urea nitrogen measurement (mass/volume) 22 mg/dL High 7-18 [facility] White blood cell (WBC) count Ordered By: Talisha Boykin on 04-29-2024 White blood cell (WBC) count 10.5 K/mm3 4.4-11.0 [facility] Basic Metabolic Profile (BMP )on 04-28-2024 BUN/CRE 28.0 RATIO High 10-20 [facility] Comment on above: Performed By: #### L 100.0100, L500.2500 ####[facility] [address] [place], [address] CA,Total 8.2 mg/dL Low 8.5-10.1 [facility] Comment on above: Performed By: #### L 100.0100, L500.2500 ####[facility] [address] [place], [address] Chloride [Moles/Vol] 102 mmol/L Normal 98-107 [facility] Comment on above: Performed By: #### L 100.0100, L500.2500 ####[facility] [address] [place], [address] CO2 [Moles/Vol] 27.0 mmol/L Normal 21.0-32.0 [facility] Comment on above: Performed By: #### L 100.0100, L500.2500 ####[facility] [address] [place], [address] Creatinine [Mass/Vol] 0.54 mg/dL Low 0.55-1.02 [facility] Comment on above: Result Comment: The validity of the calculated GFR GFRAA in patients over70 years has not been determined. Clinical correlation isessential. Performed By: #### L 100.0100, L500.2500 ####[facility] [address] [place], [address] ECRCL 118.51 ml/min Normal [facility] Comment on above: Performed By: #### L 100.0100, L500.2500 ####[facility] [address] [place], [address] EST GFR - AA 153 mL/min Normal >60 [facility] Comment on above: Result Comment: Afri can [place] GFR Calc Performed By: #### L 100.0100, L500.2500 ####[facility] [address] [place], [address] GAP 4 Low 5-15 [facility] Comment on above: Performed By: #### L 100.0100, L500.2500 ####[facility] [address] [place], [address] GFR/1.73 sq M.predicted among non-blacks MDRD (S/P/Bld) [Vol rate/Area] 127 mL/min/{1.73_m2} Normal >60 [facility] Comment on above: Result Comment: Non- GFR Calc Performed By: #### L 100.0100, L500.2500 ####[facility] [address] [place], [address] Glucose [Mass/Vol] 134 mg/dL High 74-106 [facility] Comment on above: Result Comment: Fast ing Glucose result greater than or equal to 126 mg/dLsuggests DIABETES MELLITUS per A.D.A. criteria. Performed By: #### L 100.0100, L500.2500 ####[facility] [address] [place], [address] Potassium [Moles/Vol] 4.4 mmol/L Normal 3.5-5.1 [facility] Comment on above: Performed By: #### L 100.0100, L500.2500 ####[facility] [address] [place], [address] Sodium [Moles/Vol] 133 mmol/L Low 136-145 [facility] Comment on above: Performed By: #### L 100.0100, L500.2500 ####[facility] [address] [place], [address] Urea nitrogen [Mass/Vol] 15 mg/dL Normal 7-18 [facility] Comment on above: Performed By: #### L 100.0100, L500.2500 ####[facility] [address] [place], [address] Bedside Glucoseon 04-28-2024 FINGERSTICK GLU 171 mg/dL High 74-106 [facility] Comment on above: Result Comment: TALIA GEMENT OF PATIENT CARE PER NURSING PROTOCOL Performed By: #### L 501.080 ####[facility] [address] [place], [address] FINGERSTICK GLU 158 mg/dL High -106 [facility] Comment on above: Result Comment: TALIA GEMENT OF PATIENT CARE PER NURSING PROTOCOL Performed By: #### L 501.080 ####[facility] [address] [place], [address] FINGERSTICK GLU 147 mg/dL High 74-106 [facility] Comment on above: Result Comment: TALIA GEMENT OF PATIENT CARE PER NURSING PROTOCOL Performed By: #### L 501.080 ####[facility] [address] [place], [address] FINGERSTICK GLU 148 mg/dL High 74-106 [facility] Comment on above: Result Comment: TALIA GEMENT OF PATIENT CARE PER NURSING PROTOCOL Performed By: #### L 501.080 ####[facility] [address] [place], [address] CBC W/Diff, Automatedon 11-2 Absolute Lymph 1.78 X10 3/uL Normal 0.83-4.51 [facility] Comment on above: Performed By: #### L 100.0100, L500.2500 ####[facility] [address] [place], [address] Absolute Neut 5.6 X10 3/uL Normal 2.0-7.7 [facility] Comment on above: Performed By: #### L 100.0100, L500.2500 ####[facility] [address] [place], [address] Basophils/100 WBC (Bld) 0.6 % Normal 0-1 [facility] Comment on above: Performed By: #### L 100.0100, L500.2500 ####[facility] [address] [place], [address] Eosinophils/100 WBC (Bld) 1.4 % Normal 0-5 [facility] Comment on above: Performed By: #### L 100.0100, L500.2500 ####[facility] [address] [place], [address] Erythrocyte distribution width (RBC) [Ratio] 13.3 % Normal 11.6-14.6 [facility] Comment on above: Performed By: #### L 100.0100, L500.2500 ####[facility] [address] [place], [address] Hematocrit (Bld) [Volume fraction] 38.7 % Normal 37-47 [facility] Comment on above: Performed By: #### L 100.0100, L500.2500 ####[facility] [address] [place], [address] Hemoglobin (Bld) [Mass/Vol] 12.4 g/dL Normal 12.0-15.0 [facility] Comment on above: Performed By: #### L 100.0100, L500.2500 ####[facility] [address] [place], [address] IG% 1.500 High 0.0-0.9 [facility] Comment on above: Result Comment: IG% - Immature Granulocytes (promyelocytes, myelocytes andmetamyelocytes) > 1% indicates that a LEFT SHIFT is Present. Performed By: #### L 100.0100, L500.2500 ####[facility] [address] [place], [address] Lymphocytes/100 WBC (Bld) 22.1 % Normal 19-41 [facility] Comment on above: Performed By: #### L 100.0100, L500.2500 ####[facility] [address] [place], [address] MCH (RBC) [Entitic mass] 26.5 pg Low 27.0-32.0 [facility] Comment on above: Performed By: #### L 100.0100, L500.2500 ####[facility] [address] [place], [address] MCHC (RBC) [Mass/Vol] 32.0 g/dL Normal 32-36 [facility] Comment on above: Performed By: #### L 100.0100, L500.2500 ####[facility] [address] [place], [address] MCV (RBC) [Entitic vol] 82.7 fL Normal 81-99 [facility] Comment on above: Performed By: #### L 100.0100, L500.2500 ####[facility] [address] [place], [address] Monocytes/100 WBC (Bld) 5.3 % Normal 0-10 [facility] Comment on above: Performed By: #### L 100.0100, L500.2500 ####[facility] [address] [place], [address] Neutrophils/100 WBC (Bld) 69.1 % Normal 47-70 [facility] Comment on above: Performed By: #### L 100.0100, L500.2500 ####[facility] [address] [place], [address] Nucleated RBC (Bld) [#/Vol] 0 10*3/uL Normal 0-5 [facility] Comment on above: Performed By: #### L 100.0100, L500.2500 ####[facility] [address] [place], [address] Platelet mean volume (Bld) [Entitic vol] 9.6 fL Normal 6.2-12.0 [facility] Comment on above: Performed By: #### L 100.0100, L500.2500 ####[facility] [address] [place], [address] Platelets (Bld) [#/Vol] 273 10*3/uL Normal 150-450 [facility] Comment on above: Performed By: #### L 100.0100, L500.2500 ####[facility] [address] [place], [address] RBC (Bld) [#/Vol] 4.68 10*6/uL Normal 4.2-5.4 [facility] Comment on above: Performed By: #### L 100.0100, L500.2500 ####[facility] [address] [place], [address] RDW SD 40.3 fl Normal 35.1-43.9 [facility] Comment on above: Performed By: #### L 100.0100, L500.2500 ####[facility] [address] [place], [address] WBC (Bld) [#/Vol] 8.1 10*3/uL Normal 4.4-11.0 [facility] Comment on above: Performed By: #### L 100.0100, L500.2500 ####[facility] [address] [place], [address] Basic Metabolic Profile (BMP )on 04-27-2024 BUN/CRE 25.8 RATIO High 10-20 [facility] Comment on above: Performed By: #### L 500.2500, L100.0100 ####[facility] [address] [place], [address] CA,Total 8.2 mg/dL Low 8.5-10.1 [facility] Comment on above: Performed By: #### L 500.2500, L100.0100 ####[facility] [address] [place], [address] Chloride [Moles/Vol] 98 mmol/L Normal 98-107 [facility] Comment on above: Performed By: #### L 500.2500, L100.0100 ####[facility] [address] [place], [address] CO2 [Moles/Vol] 31.0 mmol/L Normal 21.0-32.0 [facility] Comment on above: Performed By: #### L 500.2500, L100.0100 ####[facility] [address] [place], [address] Creatinine [Mass/Vol] 0.66 mg/dL Normal 0.55-1.02 [facility] Comment on above: Result Comment: The validity of the calculated GFR GFRAA in patients over70 years has not been determined. Clinical correlation isessential. Performed By: #### L 500.2500, L100.0100 ####[facility] [address] [place], [address] ECRCL 96.96 ml/min Normal [facility] Comment on above: Performed By: #### L 500.2500, L100.0100 ####[facility] [address] [place], [address] EST GFR - AA 121 mL/min Normal >60 [facility] Comment on above: Result Comment: Afri can [place] GFR Calc Performed By: #### L 500.2500, L100.0100 ####[facility] [address] [place], [address] GAP 5 Normal 5-15 [facility] Comment on above: Performed By: #### L 500.2500, L100.0100 ####[facility] [address] [place], [address] GFR/1.73 sq M.predicted among non-blacks MDRD (S/P/Bld) [Vol rate/Area] 100 mL/min/{1.73_m2} Normal >60 [facility] Comment on above: Result Comment: Non- GFR Calc Performed By: #### L 500.2500, L100.0100 ####[facility] [address] [place], [address] Glucose [Mass/Vol] 265 mg/dL High 74-106 [facility] Comment on above: Result Comment: Gluc ose result greater than or equal to 200 mg/dLsuggests DIABETES MELLITUS per A.D.A. criteria. Performed By: #### L 500.2500, L100.0100 ####[facility] [address] [place], [address] Potassium [Moles/Vol] 4.1 mmol/L Normal 3.5-5.1 [facility] Comment on above: Performed By: #### L 500.2500, L100.0100 ####[facility] [address] [place], [address] Sodium [Moles/Vol] 134 mmol/L Low 136-145 [facility] Comment on above: Performed By: #### L 500.2500, L100.0100 ####[facility] [address] [place], [address] Urea nitrogen [Mass/Vol] 17 mg/dL Normal 7-18 [facility] Comment on above: Performed By: #### L 500.2500, L100.0100 ####[facility] [address] [place], [address] Bedside Glucoseon 04-27-2024 FINGERSTICK GLU 188 mg/dL High 74-106 [facility] Comment on above: Result Comment: TALIA GEMENT OF PATIENT CARE PER NURSING PROTOCOL Performed By: #### L 501.080 ####[facility] [address] [place], [address] FINGERSTICK GLU 278 mg/dL High 74-106 [facility] Comment on above: Result Comment: TALIA GEMENT OF PATIENT CARE PER NURSING PROTOCOL Performed By: #### L 501.080 ####[facility] [address] [place], [address] FINGERSTICK GLU 321 mg/dL High 74-106 [facility] Comment on above: Result Comment: TALIA GEMENT OF PATIENT CARE PER NURSING PROTOCOL Performed By: #### L 501.080 ####[facility] [address] [place], [address] FINGERSTICK GLU 185 mg/dL High 74-106 [facility] Comment on above: Result Comment: TALIA GEMENT OF PATIENT CARE PER NURSING PROTOCOL Performed By: #### L 501.080 ####[facility] [address] [place], [address] CBC W/Diff, Automatedon 11-2 -2023 Absolute Lymph 1.39 X10 3/uL Normal 0.83-4.51 [facility] Comment on above: Performed By: #### L 500.2500, L100.0100 ####[facility] [address] [place], [address] Absolute Neut 6.8 X10 3/uL Normal 2.0-7.7 [facility] Comment on above: Performed By: #### L 500.2500, L100.0100 ####[facility] [address] [place], [address] Basophils/100 WBC (Bld) 0.7 % Normal 0-1 [facility] Comment on above: Performed By: #### L 500.2500, L100.0100 ####[facility] [address] [place], [address] Eosinophils/100 WBC (Bld) 1.1 % Normal 0-5 [facility] Comment on above: Performed By: #### L 500.2500, L100.0100 ####[facility] [address] [place], [address] Erythrocyte distribution width (RBC) [Ratio] 13.3 % Normal 11.6-14.6 [facility] Comment on above: Performed By: #### L 500.2500, L100.0100 ####[facility] [address] [place], [address] Hematocrit (Bld) [Volume fraction] 38.1 % Normal 37-47 [facility] Comment on above: Performed By: #### L 500.2500, L100.0100 ####[facility] [address] [place], [address] Hemoglobin (Bld) [Mass/Vol] 12.3 g/dL Normal 12.0-15.0 [facility] Comment on above: Performed By: #### L 500.2500, L100.0100 ####[facility] [address] [place], [address] IG% 1.200 High 0.0-0.9 [facility] Comment on above: Result Comment: IG% - Immature Granulocytes (promyelocytes, myelocytes andmetamyelocytes) > 1% indicates that a LEFT SHIFT is Present. Performed By: #### L 500.2500, L100.0100 ####[facility] [address] [place], [address] Lymphocytes/100 WBC (Bld) 15.7 % Low 19-41 [facility] Comment on above: Performed By: #### L 500.2500, L100.0100 ####[facility] [address] [place], [address] MCH (RBC) [Entitic mass] 26.9 pg Low 27.0-32.0 [facility] Comment on above: Performed By: #### L 500.2500, L100.0100 ####[facility] [address] [place], [address] MCHC (RBC) [Mass/Vol] 32.3 g/dL Normal 32-36 [facility] Comment on above: Performed By: #### L 500.2500, L100.0100 ####[facility] [address] [place], [address] MCV (RBC) [Entitic vol] 83.2 fL Normal 81-99 [facility] Comment on above: Performed By: #### L 500.2500, L100.0100 ####[facility] [address] [place], [address] Monocytes/100 WBC (Bld) 4.9 % Normal 0-10 [facility] Comment on above: Performed By: #### L 500.2500, L100.0100 ####[facility] [address] [place], [address] Neutrophils/100 WBC (Bld) 76.4 % High 47-70 [facility] Comment on above: Performed By: #### L 500.2500, L100.0100 ####[facility] [address] [place], [address] Nucleated RBC (Bld) [#/Vol] 0 10*3/uL Normal 0-5 [facility] Comment on above: Performed By: #### L 500.2500, L100.0100 ####[facility] [address] [place], [address] Platelet mean volume (Bld) [Entitic vol] 9.3 fL Normal 6.2-12.0 [facility] Comment on above: Performed By: #### L 500.2500, L100.0100 ####[facility] [address] [place], [address] Platelets (Bld) [#/Vol] 284 10*3/uL Normal 150-450 [facility] Comment on above: Performed By: #### L 500.2500, L100.0100 ####[facility] [address] [place], [address] RBC (Bld) [#/Vol] 4.58 10*6/uL Normal 4.2-5.4 [facility] Comment on above: Performed By: #### L 500.2500, L100.0100 ####[facility] [address] [place], [address] RDW SD 40.4 fl Normal 35.1-43.9 [facility] Comment on above: Performed By: #### L 500.2500, L100.0100 ####[facility] [address] [place], [address] WBC (Bld) [#/Vol] 8.9 10*3/uL Normal 4.4-11.0 [facility] Comment on above: Performed By: #### L 500.2500, L100.0100 ####[facility] [address] [place], [address] ALP [Catalytic activity/Vol] Ordered By: Nicole Trujillo on 04-26-2024 Serum or plasma alkaline phosphatase measurement 95 U/L 45-117 [facility] ALT [Catalytic activity/Vol] Ordered By: Nicole Trujillo on 04-26-2024 Serum or plasma alanine aminotransferase (ALT) measurement 8 U/L Low 13-56 [facility] Albumin [Mass/Vol]Ordered By : Nicole Trujillo on 04-26-2024 Serum or plasma albumin measurement (mass/volume) 1.7 g/dL Low 3.2-5.0 [facility] Albumin to globulin ratioOrd ered By: Nicole Trujillo on 04-26-2024 Albumin to globulin ratio 0.4 RATIO Low 0.9-2.4 [facility] Bedside Glucoseon 04-26-2024 FINGERSTICK GLU 319 mg/dL High 74-106 [facility] Comment on above: Result Comment: TALIA GEMENT OF PATIENT CARE PER NURSING PROTOCOL Performed By: #### L 501.080 ####[facility] [address] [place], [address] FINGERSTICK GLU 280 mg/dL High 74-[address] [place] [address] Comment on above: Result Comment: TALIA GEMENT OF PATIENT CARE PER NURSING PROTOCOL Performed By: #### L 501.080 ####[facility] [address] [place], [address] FINGERSTICK GLU 150 mg/dL High [address] [place] [address] Comment on above: Result Comment: TALIA GEMENT OF PATIENT CARE PER NURSING PROTOCOL Performed By: #### L 501.080 ####[facility] [address] [place], [address] Bilirubin, totalOrdered By: Nicole Trujillo on 04-26-2024 Bilirubin, total 0.50 mg/dL 0.20-1.00 [facility] CBC W/Diff, Automatedon 04-05 Absolute Lymph 1.72 X10 3/uL Normal 0.83-4.51 [facility] Comment on above: Performed By: #### L 100.0100, L500.4050, L501.2300, L501.5200 ####[facility] [address] [place], [address] Absolute Neut 6.8 X10 3/uL Normal 2.0-7.7 [facility] Comment on above: Performed By: #### L 100.0100, L500.4050, L501.2300, L501.5200 ####[facility] [address] [place], [address] Basophils/100 WBC (Bld) 0.4 % Normal 0-1 [facility] Comment on above: Performed By: #### L 100.0100, L500.4050, L501.2300, L501.5200 ####[facility] [address] [place], [address] Eosinophils/100 WBC (Bld) 1.2 % Normal 0-5 [facility] Comment on above: Performed By: #### L 100.0100, L500.4050, L501.2300, L501.5200 ####[facility] [address] [place], [address] Erythrocyte distribution width (RBC) [Ratio] 13.2 % Normal 11.6-14.6 [facility] Comment on above: Performed By: #### L 100.0100, L500.4050, L501.2300, L501.5200 ####[facility] [address] [place], [address] Hematocrit (Bld) [Volume fraction] 33.4 % Low 37-47 [facility] Comment on above: Performed By: #### L 100.0100, L500.4050, L501.2300, L501.5200 ####[facility] [address] [place], [address] Hemoglobin (Bld) [Mass/Vol] 11.3 g/dL Low 12.0-15.0 [facility] Comment on above: Performed By: #### L 100.0100, L500.4050, L501.2300, L501.5200 ####[facility] [address] [place], [address] IG% 1.200 High 0.0-0.9 [facility] Comment on above: Result Comment: IG% - Immature Granulocytes (promyelocytes, myelocytes andmetamyelocytes) > 1% indicates that a LEFT SHIFT is Present. Performed By: #### L 100.0100, L500.4050, L501.2300, L501.5200 ####[facility] [address] [place], [address] Lymphocytes/100 WBC (Bld) 18.4 % Low 19-41 [facility] Comment on above: Performed By: #### L 100.0100, L500.4050, L501.2300, L501.5200 ####[facility] [address] [place], [address] MCH (RBC) [Entitic mass] 27.6 pg Normal 27.0-32.0 [facility] Comment on above: Performed By: #### L 100.0100, L500.4050, L501.2300, L501.5200 ####[facility] [address] [place], [address] MCHC (RBC) [Mass/Vol] 33.8 g/dL Normal 32-36 [facility] Comment on above: Performed By: #### L 100.0100, L500.4050, L501.2300, L501.5200 ####[facility] [address] [place], [address] MCV (RBC) [Entitic vol] 81.7 fL Normal 81-99 [facility] Comment on above: Performed By: #### L 100.0100, L500.4050, L501.2300, L501.5200 ####[facility] [address] [place], [address] Monocytes/100 WBC (Bld) 5.7 % Normal 0-10 [facility] Comment on above: Performed By: #### L 100.0100, L500.4050, L501.2300, L501.5200 ####[facility] [address] [place], [address] Neutrophils/100 WBC (Bld) 73.1 % High 47-70 [facility] Comment on above: Performed By: #### L 100.0100, L500.4050, L501.2300, L501.5200 ####[facility] [address] [place], [address] Nucleated RBC (Bld) [#/Vol] 0 10*3/uL Normal 0-5 [facility] Comment on above: Performed By: #### L 100.0100, L500.4050, L501.2300, L501.5200 ####[facility] [address] [place], [address] Platelet mean volume (Bld) [Entitic vol] 9.3 fL Normal 6.2-12.0 [facility] Comment on above: Performed By: #### L 100.0100, L500.4050, L501.2300, L501.5200 ####[facility] [address] [place], [address] Platelets (Bld) [#/Vol] 234 10*3/uL Normal 150-450 [facility] Comment on above: Performed By: #### L 100.0100, L500.4050, L501.2300, L501.5200 ####[facility] [address] [place], [address] RBC (Bld) [#/Vol] 4.09 10*6/uL Low 4.2-5.4 [facility] Comment on above: Performed By: #### L 100.0100, L500.4050, L501.2300, L501.5200 ####[facility] [address] [place], [address] RDW SD 39.2 fl Normal 35.1-43.9 [facility] Comment on above: Performed By: #### L 100.0100, L500.4050, L501.2300, L501.5200 ####[facility] [address] [place], [address] WBC (Bld) [#/Vol] 9.3 10*3/uL Normal 4.4-11.0 [facility] Comment on above: Performed By: #### L 100.0100, L500.4050, L501.2300, L501.5200 ####[facility] [address] [place], [address] Comprehensive Metabolic [facility] 04-26-2024 Albumin [Mass/Vol] 1.7 g/dL Low 3.2-5.0 [facility] Comment on above: Performed By: #### L 100.0100, L500.4050, L501.2300, L501.5200 ####[facility] [address] [place], [address] Albumin/Globulin [Mass ratio] 0.4 {ratio} Low 0.9-2.4 [facility] Comment on above: Performed By: #### L 100.0100, L500.4050, L501.2300, L501.5200 ####[facility] [address] [place], [address] ALK P 95 U/L Normal 45-117 [facility] Comment on above: Performed By: #### L 100.0100, L500.4050, L501.2300, L501.5200 ####[facility] [address] [place], [address] ALT [Catalytic activity/Vol] 8 U/L Low 13-56 [facility] Comment on above: Performed By: #### L 100.0100, L500.4050, L501.2300, L501.5200 ####[facility] [address] [place], [address] AST [Catalytic activity/Vol] 13 U/L Low 15-37 [facility] Comment on above: Performed By: #### L 100.0100, L500.4050, L501.2300, L501.5200 ####[facility] [address] [place], [address] Bilirubin [Mass/Vol] 0.50 mg/dL Normal 0.20-1.00 [facility] Comment on above: Result Comment: For patients on eltrombopag therapy, use of Dimension [place] TBIL is not recommended. Performed By: #### L 100.0100, L500.4050, L501.2300, L501.5200 ####[facility] [address] [place], [address] BUN/CRE 23.5 RATIO High 10-20 [facility] Comment on above: Performed By: #### L 100.0100, L500.4050, L501.2300, L501.5200 ####[facility] [address] [place], [address] CA,Total 8.0 mg/dL Low 8.5-10.1 [facility] Comment on above: Performed By: #### L 100.0100, L500.4050, L501.2300, L501.5200 ####[facility] [address] [place], [address] Chloride [Moles/Vol] 98 mmol/L Normal 98-107 [facility] Comment on above: Performed By: #### L 100.0100, L500.4050, L501.2300, L501.5200 ####[facility] [address] [place], [address] CO2 [Moles/Vol] 30.0 mmol/L Normal 21.0-32.0 [facility] Comment on above: Performed By: #### L 100.0100, L500.4050, L501.2300, L501.5200 ####[facility] [address] [place], [address] Creatinine [Mass/Vol] 0.81 mg/dL Normal 0.55-1.02 [facility] Comment on above: Result Comment: The validity of the calculated GFR GFRAA in patients over70 years has not been determined. Clinical correlation isessential. Performed By: #### L 100.0100, L500.4050, L501.2300, L501.5200 ####[facility] [address] [place], [address] ECRCL 79.01 ml/min Normal [facility] Comment on above: Performed By: #### L 100.0100, L500.4050, L501.2300, L501.5200 ####[facility] [address] [place], [address] EST GFR - AA 96 mL/min Normal >60 [facility] Comment on above: Result Comment: Afri can [place] GFR Calc Performed By: #### L 100.0100, L500.4050, L501.2300, L501.5200 ####[facility] [address] [place], [address] GAP 4 Low 5-15 [facility] Comment on above: Performed By: #### L 100.0100, L500.4050, L501.2300, L501.5200 ####[facility] [address] [place], [address] GFR/1.73 sq M.predicted among non-blacks MDRD (S/P/Bld) [Vol rate/Area] 79 mL/min/{1.73_m2} Normal >60 [facility] Comment on above: Result Comment: Non- GFR Calc Performed By: #### L 100.0100, L500.4050, L501.2300, L501.5200 ####[facility] [address] [place], [address] Globulin (S) [Mass/Vol] 4.7 g/dL High 2.2-4.2 [facility] Comment on above: Performed By: #### L 100.0100, L500.4050, L501.2300, L501.5200 ####[facility] [address] [place], [address] Glucose [Mass/Vol] 146 mg/dL High 74-106 [facility] Comment on above: Result Comment: Fast ing Glucose result greater than or equal to 126 mg/dLsuggests DIABETES MELLITUS per A.D.A. criteria. Performed By: #### L 100.0100, L500.4050, L501.2300, L501.5200 ####[facility] [address] [place], [address] Potassium [Moles/Vol] 3.2 mmol/L Low 3.5-5.1 [facility] Comment on above: Performed By: #### L 100.0100, L500.4050, L501.2300, L501.5200 ####[facility] [address] [place], [address] Sodium [Moles/Vol] 132 mmol/L Low 136-145 [facility] Comment on above: Performed By: #### L 100.0100, L500.4050, L501.2300, L501.5200 ####[facility] [address] [place], [address] T PROT 6.4 g/dL Normal 6.4-8.2 [facility] Comment on above: Performed By: #### L 100.0100, L500.4050, L501.2300, L501.5200 ####[facility] [address] [place], [address] Urea nitrogen [Mass/Vol] 19 mg/dL High 7-18 [facility] Comment on above: Performed By: #### L 100.0100, L500.4050, L501.2300, L501.5200 ####[facility] [address] [place], [address] M R Staph Aureus DNA by PCRo n 04-26-2024 MRSA DNA ASSAY Negative Normal Negative [facility] Comment on above: Performed By: #### L 8200.1000 ####[facility] [address] [place], [address] MRSA Wound DNA by PCRon 04-05 MRSA DNA ASSAY Negative Normal Negative [facility] Comment on above: Order Comment: left breast Performed By: #### L 8200.1075 ####[facility] [address] [place], [address] SA DNA ASSAY Negative Normal Negative [facility] Comment on above: Order Comment: left breast Performed By: #### L 8200.1075 ####[facility] [address] [place], [address] MRSA detection PCROrdered By : Nicole Trujillo on 04-26-2024 MRSA detection PCR Negative Negative [facility] Magnesiumon 04-26-2024 Magnesium [Mass/Vol] 2.2 mg/dL Normal 1.6-2.6 [facility] Comment on above: Performed By: #### L 100.0100, L500.4050, L501.2300, L501.5200 ####[facility] [address] [place], [address] Magnesium measurementOrdered By: Nicole Trujillo on 04-26-2024 Magnesium measurement 2.2 mg/dL 1.6-2.6 [facility] No Panel InformationOrdered By: Nicole Trujillo on 04-26-2024 13 U/L Low 15-37 [facility] Phosphoruson 04-26-2024 Phosphate [Mass/Vol] 3.2 mg/dL Normal 2.5-4.9 [facility] Comment on above: Performed By: #### L 100.0100, L500.4050, L501.2300, L501.5200 ####[facility] [address] [place], [place], [address] Phosphorus measurementOrdere d By: Nicole Trujillo on 04-26-2024 Phosphorus measurement 3.2 mg/dL 2.5-4.9 [facility] Serum globulin measurementOr dered By: Nicole Trujillo on 04-26-2024 Serum globulin measurement 4.7 g/dL High 2.2-4.2 [facility] Total proteinOrdered By: Jenae Trujillo on 04-26-2024 Total protein 6.4 g/dL 6.4-8.2 [facility] Abdomen/Pelvis W IV Cont ONL Yon 04-25-2024 Abdomen/Pelvis W IV Cont ONLY Normal [facility] Bedside Glucoseon 04-25-2024 FINGERSTICK GLU 341 mg/dL High 74-106 [facility] Comment on above: Result Comment: TALIA JIMMIEENT OF PATIENT CARE PER NURSING PROTOCOL Performed By: #### L 501.080 ####[facility] [address] [place], [place], [address] FINGERSTICK GLU 336 mg/dL High 74-106 [facility] Comment on above: Result Comment: TALIA CHAMBERS OF PATIENT CARE PER NURSING PROTOCOL Performed By: #### L 501.080 ####[facility] [address] [place], [address] CBC W/Diff, Automatedon 11-2 Absolute Lymph 0.97 X10 3/uL Normal 0.83-4.51 [facility] Comment on above: Performed By: #### L 100.0100, L501.2450, L503.6005, L500.4050 ####[facility] [address] [place], [address] Absolute Neut 10.8 X10 3/uL High 2.0-7.7 [facility] Comment on above: Performed By: #### L 100.0100, L501.2450, L503.6005, L500.4050 ####[facility] [address] [place], [address] Basophils/100 WBC (Bld) 0.4 % Normal 0-1 [facility] Comment on above: Performed By: #### L 100.0100, L501.2450, L503.6005, L500.4050 ####[facility] [address] [place], [address] Eosinophils/100 WBC (Bld) 0.5 % Normal 0-5 [facility] Comment on above: Performed By: #### L 100.0100, L501.2450, L503.6005, L500.4050 ####[facility] [address] [place], [address] Erythrocyte distribution width (RBC) [Ratio] 13.0 % Normal 11.6-14.6 [facility] Comment on above: Performed By: #### L 100.0100, L501.2450, L503.6005, L500.4050 ####[facility] [address] [place], [address] Hematocrit (Bld) [Volume fraction] 39.4 % Normal 37-47 [facility] Comment on above: Performed By: #### L 100.0100, L501.2450, L503.6005, L500.4050 ####[facility] [address] [place], [address] Hemoglobin (Bld) [Mass/Vol] 13.3 g/dL Normal 12.0-15.0 [facility] Comment on above: Performed By: #### L 100.0100, L501.2450, L503.6005, L500.4050 ####[facility] [address] [place], [address] IG% 1.100 High 0.0-0.9 [facility] Comment on above: Result Comment: IG% - Immature Granulocytes (promyelocytes, myelocytes andmetamyelocytes) > 1% indicates that a LEFT SHIFT is Present. Performed By: #### L 100.0100, L501.2450, L503.6005, L500.4050 ####[facility] [address], [address] Lymphocytes/100 WBC (Bld) 7.7 % Low 19-41 [facility] Comment on above: Performed By: #### L 100.0100, L501.2450, L503.6005, L500.4050 ####[facility] [address] [place], [address] MCH (RBC) [Entitic mass] 27.0 pg Normal 27.0-32.0 [facility] Comment on above: Performed By: #### L 100.0100, L501.2450, L503.6005, L500.4050 ####[facility] [address] [place], [address] MCHC (RBC) [Mass/Vol] 33.8 g/dL Normal 32-36 [facility] Comment on above: Performed By: #### L 100.0100, L501.2450, L503.6005, L500.4050 ####[facility] [address] [place], [address] MCV (RBC) [Entitic vol] 79.9 fL Low 81-99 [facility] Comment on above: Performed By: #### L 100.0100, L501.2450, L503.6005, L500.4050 ####[facility] [address] [place], [address] Monocytes/100 WBC (Bld) 4.2 % Normal 0-10 [facility] Comment on above: Performed By: #### L 100.0100, L501.2450, L503.6005, L500.4050 ####[facility] [address] [place], [address] Neutrophils/100 WBC (Bld) 86.1 % High 47-70 [facility] Comment on above: Performed By: #### L 100.0100, L501.2450, L503.6005, L500.4050 ####[facility] [address] [place], [address] Nucleated RBC (Bld) [#/Vol] 0 10*3/uL Normal 0-5 [facility] Comment on above: Performed By: #### L 100.0100, L501.2450, L503.6005, L500.4050 ####[facility] [address] [place], [address] Platelet mean volume (Bld) [Entitic vol] 9.4 fL Normal 6.2-12.0 [facility] Comment on above: Performed By: #### L 100.0100, L501.2450, L503.6005, L500.4050 ####[facility] [address] [place], [address] Platelets (Bld) [#/Vol] 259 10*3/uL Normal 150-450 [facility] Comment on above: Performed By: #### L 100.0100, L501.2450, L503.6005, L500.4050 ####[facility] [address] [place], [address] RBC (Bld) [#/Vol] 4.93 10*6/uL Normal 4.2-5.4 [facility] Comment on above: Performed By: #### L 100.0100, L501.2450, L503.6005, L500.4050 ####[facility] [address] [place], [address] RDW SD 37.1 fl Normal 35.1-43.9 [facility] Comment on above: Performed By: #### L 100.0100, L501.2450, L503.6005, L500.4050 ####[facility] [address] [place], [address] WBC (Bld) [#/Vol] 12.6 10*3/uL High 4.4-11.0 [facility] Comment on above: Performed By: #### L 100.0100, L501.2450, L503.6005, L500.4050 ####[facility] [address] [place], [address] Comprehensive Metabolic Prof [facility] 04-25-2024 Albumin [Mass/Vol] 2.0 g/dL Low 3.2-5.0 [facility] Comment on above: Performed By: #### L 100.0100, L501.2450, L503.6005, L500.4050 ####[facility] [address] [place], [address] Albumin/Globulin [Mass ratio] 0.4 {ratio} Low 0.9-2.4 [facility] Comment on above: Performed By: #### L 100.0100, L501.2450, L503.6005, L500.4050 ####[facility] [address] [place], [address] ALK P 124 U/L High 45-117 [facility] Comment on above: Performed By: #### L 100.0100, L501.2450, L503.6005, L500.4050 ####[facility] [address] [place], [address] ALT [Catalytic activity/Vol] 9 U/L Low 13-56 [facility] Comment on above: Performed By: #### L 100.0100, L501.2450, L503.6005, L500.4050 ####[facility] [address] [place], [address] AST [Catalytic activity/Vol] 17 U/L Normal 15-37 [facility] Comment on above: Performed By: #### L 100.0100, L501.2450, L503.6005, L500.4050 ####[facility] [address] [place], [address] Bilirubin [Mass/Vol] 0.80 mg/dL Normal 0.20-1.00 [facility] Comment on above: Result Comment: For patients on eltrombopag therapy, use of Dimension [place] TBIL is not recommended. Performed By: #### L 100.0100, L501.2450, L503.6005, L500.4050 ####[facility] [address] [place], [address] BUN/CRE 29.4 RATIO High 10-20 [facility] Comment on above: Performed By: #### L 100.0100, L501.2450, L503.6005, L500.4050 ####[facility] [address] [place], [address] CA,Total 8.7 mg/dL Normal 8.5-10.1 [facility] Comment on above: Performed By: #### L 100.0100, L501.2450, L503.6005, L500.4050 ####[facility] [address] [place], [address] Chloride [Moles/Vol] 95 mmol/L Low 98-107 [facility] Comment on above: Performed By: #### L 100.0100, L501.2450, L503.6005, L500.4050 ####[facility] [address] [place], [address] CO2 [Moles/Vol] 29.0 mmol/L Normal 21.0-32.0 [facility] Comment on above: Performed By: #### L 100.0100, L501.2450, L503.6005, L500.4050 ####[facility] [address] [place], [address] Creatinine [Mass/Vol] 0.65 mg/dL Normal 0.55-1.02 [facility] Comment on above: Result Comment: The validity of the calculated GFR GFRAA in patients over70 years has not been determined. Clinical correlation isessential. Performed By: #### L 100.0100, L501.2450, L503.6005, L500.4050 ####[facility] [address] [place], [address] ECRCL 109.13 ml/min Normal [facility] Comment on above: Performed By: #### L 100.0100, L501.2450, L503.6005, L500.4050 ####[facility] [address] [place], [address] EST GFR - AA 123 mL/min Normal >60 [facility] Comment on above: Result Comment: Afri can [place] GFR Calc Performed By: #### L 100.0100, L501.2450, L503.6005, L500.4050 ####[facility] [address] [place], [address] GAP 6 Normal 5-15 [facility] Comment on above: Performed By: #### L 100.0100, L501.2450, L503.6005, L500.4050 ####[facility] [address] [place], [address] GFR/1.73 sq M.predicted among non-blacks MDRD (S/P/Bld) [Vol rate/Area] 102 mL/min/{1.73_m2} Normal >60 [facility] Comment on above: Result Comment: Non- GFR Calc Performed By: #### L 100.0100, L501.2450, L503.6005, L500.4050 ####[facility] [address] [place], [address] Globulin (S) [Mass/Vol] 5.7 g/dL High 2.2-4.2 [facility] Comment on above: Performed By: #### L 100.0100, L501.2450, L503.6005, L500.4050 ####[facility] [address] [place], [address] Glucose [Mass/Vol] 359 mg/dL High 74-106 [facility] Comment on above: Result Comment: Gluc ose result greater than or equal to 200 mg/dLsuggests DIABETES MELLITUS per A.D.A. criteria. Performed By: #### L 100.0100, L501.2450, L503.6005, L500.4050 ####[facility] [address] [place], [address] Potassium [Moles/Vol] 3.5 mmol/L Normal 3.5-5.1 [facility] Comment on above: Performed By: #### L 100.0100, L501.2450, L503.6005, L500.4050 ####[facility] [address] [place], [address] Sodium [Moles/Vol] 130 mmol/L Low 136-145 [facility] Comment on above: Performed By: #### L 100.0100, L501.2450, L503.6005, L500.4050 ####[facility] [address] [place], [address] T PROT 7.7 g/dL Normal 6.4-8.2 [facility] Comment on above: Performed By: #### L 100.0100, L501.2450, L503.6005, L500.4050 ####[facility] [address] [place], [address] Urea nitrogen [Mass/Vol] 19 mg/dL High 7-18 [facility] Comment on above: Performed By: #### L 100.0100, L501.2450, L503.6005, L500.4050 ####[facility] [address] [place], [address] Emergency Department Summary on 04-25-2024 Emergency Department Summary Normal [facility] H AND P Exam - [facility] 04-25-2024 H&P Exam - Hospitalist Normal [facility] Lactic Acidon 04-25-2024 Lactate [Moles/Vol] 3.0 mmol/L Invalid Interpretation Code 0.4-1.9 [facility] Comment on above: Result Comment: Crit ical Result(s) Called at: 18:55:46 04/25/2024 by:Eneida Caraballo to Sandeep Elizalde. Results read back by same. Performed By: #### L 503.6005 ####[facility] [address] [place], [address] Lactate [Moles/Vol] 2.0 mmol/L Normal 0.4-1.9 [facility] Comment on above: Order Comment: Y Result Comment: Crit ical Result(s) Called at: 14:43:32 04/25/2024 by:Eneida Short. Results read back by same. Performed By: #### L 100.0100, L501.2450, L503.6005, L500.4050 ####[facility] [address] [place], [address] Lactic acid measurementOrder ed By: Jeremiah Rawls on 04-25-2024 Lactic acid measurement 3.0 mmol/L High 0.4-2.0 [facility] Lipaseon 04-25-2024 Lipase [Catalytic activity/Vol] 22 U/L Normal - [facility] Comment on above: Result Comment: Gege edgar note:LIPASE revised reference range effective 22.New Lipase methodology. Expected to produce lower valuesthan the previous assay method.NEW Reference Range: 13 - 75 U/L Performed By: #### L 100.0100, L501.2450, L503.6005, L500.4050 ####[facility] [address] [place], [address] Lipase measurementOrdered By : Jeremiah Rawls on 04-25-2024 Lipase measurement 22 U/L - [facility] Basic Metabolic Profile (BMP )on 02-21-2024 BUN Normal 7-18 [facility] Comment on above: Result Comment: Canc elled via OM: Order cancelled - Patient discharged Performed By: #### L 500.2500 ####[facility] [address] [place], [address] BUN/CRE Normal 10-20 [facility] Comment on above: Result Comment: Canc elled via OM: Order cancelled - Patient discharged Performed By: #### L 500.2500 ####[facility] [address] [place], [address] CA,Total Normal 8.5-10.1 [facility] Comment on above: Result Comment: Canc elled via OM: Order cancelled - Patient discharged Performed By: #### L 500.2500 ####[facility] [address] [place], [address] CL Normal 98-107 [facility] Comment on above: Result Comment: Canc elled via OM: Order cancelled - Patient discharged Performed By: #### L 500.2500 ####[facility] [address] [place], [address] CO2 Normal 21.0-32.0 [facility] Comment on above: Result Comment: Canc elled via OM: Order cancelled - Patient discharged Performed By: #### L 500.2500 ####[facility] [address] [place], [address] CREAT,SERUM Normal 0.55-1.02 [facility] Comment on above: Result Comment: Canc elled via OM: Order cancelled - Patient discharged Performed By: #### L 500.2500 ####[facility] [address] [place], [address] EST GFR Normal >60 [facility] Comment on above: Result Comment: Canc elled via OM: Order cancelled - Patient discharged Performed By: #### L 500.2500 ####[facility] [address] [place], [address] EST GFR - AA Normal >60 [facility] Comment on above: Result Comment: Canc elled via OM: Order cancelled - Patient discharged Performed By: #### L 500.2500 ####[facility] [address] [place], [address] GAP Normal 5-15 [facility] Comment on above: Result Comment: Canc elled via OM: Order cancelled - Patient discharged Performed By: #### L 500.2500 ####[facility] [address] [place], [address] GLU Normal 74-106 [facility] Comment on above: Result Comment: Canc elled via OM: Order cancelled - Patient discharged Performed By: #### L 500.2500 ####[facility] [address] [place], [address] Potassium Normal 3.5-5.1 [facility] Comment on above: Result Comment: Canc elled via OM: Order cancelled - Patient discharged Performed By: #### L 500.2500 ####[facility] [address] [place], [address] Basic Metabolic Profile (BMP) Normal 136-145 [facility] Comment on above: Result Comment: Canc elled via OM: Order cancelled - Patient discharged Performed By: #### L 500.2500 ####[facility] [address] [place], [address] Basic Metabolic Profile (BMP )on 02-19-2024 BUN/CRE 8.7 RATIO Low 10-20 [facility] Comment on above: Performed By: #### L 500.2500 ####[facility] [address] [place], [address] CA,Total 9.0 mg/dL Normal 8.5-10.1 [facility] Comment on above: Performed By: #### L 500.2500 ####[facility] [address] [place], [address] Chloride [Moles/Vol] 103 mmol/L Normal 98-107 [facility] Comment on above: Performed By: #### L 500.2500 ####[facility] [address] [place], [address] CO2 [Moles/Vol] 27.0 mmol/L Normal 21.0-32.0 [facility] Comment on above: Performed By: #### L 500.2500 ####[facility] [address] [place], [address] Creatinine [Mass/Vol] 0.80 mg/dL Normal 0.55-1.02 [facility] Comment on above: Result Comment: The validity of the calculated GFR GFRAA in patients over70 years has not been determined. Clinical correlation isessential. Performed By: #### L 500.2500 ####[facility] [address] [place], [address] ECRCL 89.06 ml/min Normal [facility] Comment on above: Performed By: #### L 500.2500 ####[facility] [address] [place], [address] EST GFR - AA 96 mL/min Normal >60 [facility] Comment on above: Result Comment: Afri can [place]er GFR Calc Performed By: #### L 500.2500 ####[facility] [address] [place], [address] GAP 7 Normal 5-15 [facility] Comment on above: Performed By: #### L 500.2500 ####[facility] [address] [place], [address] GFR/1.73 sq M.predicted among non-blacks MDRD (S/P/Bld) [Vol rate/Area] 79 mL/min/{1.73_m2} Normal >60 [facility] Comment on above: Result Comment: Non- GFR Calc Performed By: #### L 500.2500 ####[facility] [address] [place], [address] Glucose [Mass/Vol] 88 mg/dL Normal 74-106 [facility] Comment on above: Performed By: #### L 500.2500 ####[facility] [address] [place], [address] Potassium [Moles/Vol] 3.2 mmol/L Low 3.5-5.1 [facility] Comment on above: Performed By: #### L 500.2500 ####[facility] [address] [place], [address] Sodium [Moles/Vol] 137 mmol/L Normal 136-145 [facility] Comment on above: Performed By: #### L 500.2500 ####[facility] [address] [place], [address] Urea nitrogen [Mass/Vol] 7 mg/dL Normal 7-18 [facility] Comment on above: Performed By: #### L 500.2500 ####[facility] [address] [place], [address] Bedside Glucoseon 02-18-2023 FINGERSTICK GLU 100 mg/dL Normal 74-106 [facility] Comment on above: Result Comment: TALIA GEMENT OF PATIENT CARE PER NURSING PROTOCOL Performed By: #### L 501.080 ####[facility] [address] [place], [address] FINGERSTICK GLU 90 mg/dL Normal 74-106 [facility] Comment on above: Result Comment: TALIA GEMENT OF PATIENT CARE PER NURSING PROTOCOL Performed By: #### L 501.080 ####[facility] [address] [place], [address] CBC W/Diff, Automatedon - Absolute Lymph 1.46 X10 3/uL Normal 0.83-4.51 [facility] Comment on above: Performed By: #### L 100.0100 ####[facility] [address] [place], [address] Absolute Neut 6.9 X10 3/uL Normal 2.0-7.7 [facility] Comment on above: Performed By: #### L 100.0100 ####[facility] [address] [place], [address] Basophils/100 WBC (Bld) 0.5 % Normal 0-1 [facility] Comment on above: Performed By: #### L 100.0100 ####[facility] [address] [place], [address] Eosinophils/100 WBC (Bld) 0.4 % Normal 0-5 [facility] Comment on above: Performed By: #### L 100.0100 ####[facility] [address] [place], [address] Erythrocyte distribution width (RBC) [Ratio] 14.3 % Normal 11.6-14.6 [facility] Comment on above: Performed By: #### L 100.0100 ####[facility] [address] [place], [address] Hematocrit (Bld) [Volume fraction] 39.6 % Normal 37-47 [facility] Comment on above: Performed By: #### L 100.0100 ####[facility] [address] [place], [address] Hemoglobin (Bld) [Mass/Vol] 12.4 g/dL Normal 12.0-15.0 [facility] Comment on above: Performed By: #### L 100.0100 ####[facility] [address] [place], [address] IG% 0.700 Normal 0.0-0.9 [facility] Comment on above: Result Comment: IG% - Immature Granulocytes (promyelocytes, myelocytes andmetamyelocytes) > 1% indicates that a LEFT SHIFT is Present. Performed By: #### L 100.0100 ####[facility] [address] [place], [address] Lymphocytes/100 WBC (Bld) 16.0 % Low 19-41 [facility] Comment on above: Performed By: #### L 100.0100 ####[facility] [address] [place], [address] MCH (RBC) [Entitic mass] 26.8 pg Low 27.0-32.0 [facility] Comment on above: Performed By: #### L 100.0100 ####[facility] [address] [place], [address] MCHC (RBC) [Mass/Vol] 31.3 g/dL Low 32-36 [facility] Comment on above: Performed By: #### L 100.0100 ####[facility] [address] [place], [address] MCV (RBC) [Entitic vol] 85.7 fL Normal 81-99 [facility] Comment on above: Performed By: #### L 100.0100 ####[facility] [address] [place], [address] Monocytes/100 WBC (Bld) 6.1 % Normal 0-10 [facility] Comment on above: Performed By: #### L 100.0100 ####[facility] [address] [place], [address] Neutrophils/100 WBC (Bld) 76.3 % High 47-70 [facility] Comment on above: Performed By: #### L 100.0100 ####[facility] [address] [place], [address] Nucleated RBC (Bld) [#/Vol] 0 10*3/uL Normal 0-5 [facility] Comment on above: Performed By: #### L 100.0100 ####[facility] [address] [place], [address] Platelet mean volume (Bld) [Entitic vol] 9.3 fL Normal 6.2-12.0 [facility] Comment on above: Performed By: #### L 100.0100 ####[facility] [address] [place], [address] Platelets (Bld) [#/Vol] 306 10*3/uL Normal 150-450 [facility] Comment on above: Performed By: #### L 100.0100 ####[facility] [address] [place], [address] RBC (Bld) [#/Vol] 4.62 10*6/uL Normal 4.2-5.4 [facility] Comment on above: Performed By: #### L 100.0100 ####[facility] [address] [place], [address] RDW SD 44.5 fl High 35.1-43.9 [facility] Comment on above: Performed By: #### L 100.0100 ####[facility] [address] [place], [address] WBC (Bld) [#/Vol] 9.1 10*3/uL Normal 4.4-11.0 [facility] Comment on above: Performed By: #### L 100.0100 ####[facility] [address] [place], [address] Bedside Glucoseon 02-18-2024 FINGERSTICK GLU 165 mg/dL High 74-106 [facility] Comment on above: Result Comment: TALIA GEMENT OF PATIENT CARE PER NURSING PROTOCOL Performed By: #### L 501.080 ####[facility] [address] [place], [address] FINGERSTICK GLU 100 mg/dL Normal 74-106 [facility] Comment on above: Result Comment: TALIA GEMENT OF PATIENT CARE PER NURSING PROTOCOL Performed By: #### L 501.080 ####[facility] [address] [place], [address] FINGERSTICK GLU 102 mg/dL Normal 74-106 [facility] Comment on above: Result Comment: TALIA GEMENT OF PATIENT CARE PER NURSING PROTOCOL Performed By: #### L 501.080 ####[facility] [address] [place], [address] FINGERSTICK GLU 136 mg/dL High 74-106 [facility] Comment on above: Result Comment: TALIA CHAMBERS OF PATIENT CARE PER NURSING PROTOCOL Performed By: #### L 501.080 ####[facility] [address] [place], [address] Basic Metabolic Profile (BMP )on 02-17-2024 BUN/CRE 14.4 RATIO Normal 10-20 [facility] Comment on above: Performed By: #### L 500.2500, L100.0100 ####[facility] [address] [place], [address] CA,Total 8.6 mg/dL Normal 8.5-10.1 [facility] Comment on above: Performed By: #### L 500.2500, L100.0100 ####[facility] [address] [place], [address] Chloride [Moles/Vol] 103 mmol/L Normal 98-107 [facility] Comment on above: Performed By: #### L 500.2500, L100.0100 ####[facility] [address] [place], [address] CO2 [Moles/Vol] 28.0 mmol/L Normal 21.0-32.0 [facility] Comment on above: Performed By: #### L 500.2500, L100.0100 ####[facility] [address] [place], [address] Creatinine [Mass/Vol] 0.62 mg/dL Normal 0.55-1.02 [facility] Comment on above: Result Comment: The validity of the calculated GFR GFRAA in patients over70 years has not been determined. Clinical correlation isessential. Performed By: #### L 500.2500, L100.0100 ####[facility] [address] [place], [address] ECRCL 114.92 ml/min Normal [facility] Comment on above: Performed By: #### L 500.2500, L100.0100 ####[facility] [address] [place], [address] EST GFR - AA 129 mL/min Normal >60 [facility] Comment on above: Result Comment: Afri can [place] GFR Calc Performed By: #### L 500.2500, L100.0100 ####[facility] [address] [place], [address] GAP 5 Normal 5-15 [facility] Comment on above: Performed By: #### L 500.2500, L100.0100 ####[facility] [address] [place], [address] GFR/1.73 sq M.predicted among non-blacks MDRD (S/P/Bld) [Vol rate/Area] 107 mL/min/{1.73_m2} Normal >60 [facility] Comment on above: Result Comment: Non- GFR Calc Performed By: #### L 500.2500, L100.0100 ####[facility] [address] [place], [address] Glucose [Mass/Vol] 88 mg/dL Normal 74-106 [facility] Comment on above: Performed By: #### L 500.2500, L100.0100 ####[facility] [address] [place], [address] Potassium [Moles/Vol] 3.2 mmol/L Low 3.5-5.1 [facility] Comment on above: Performed By: #### L 500.2500, L100.0100 ####[facility] [address] [place], [address] Sodium [Moles/Vol] 136 mmol/L Normal 136-145 [facility] Comment on above: Performed By: #### L 500.2500, L100.0100 ####[facility] [address] [place], [address] Urea nitrogen [Mass/Vol] 9 mg/dL Normal 7-18 [facility] Comment on above: Performed By: #### L 500.2500, L100.0100 ####[facility] [address] [place], [address] Bedside Glucoseon 02-17-2024 FINGERSTICK GLU 111 mg/dL High 74-106 [facility] Comment on above: Result Comment: TALIA GEMENT OF PATIENT CARE PER NURSING PROTOCOL Performed By: #### L 501.080 ####[facility] [address] [place], [address] FINGERSTICK GLU 113 mg/dL High 74-106 [facility] Comment on above: Result Comment: TALIA GEMENT OF PATIENT CARE PER NURSING PROTOCOL Performed By: #### L 501.080 ####[facility] [address] [place], [address] FINGERSTICK GLU 114 mg/dL High 74-106 [facility] Comment on above: Result Comment: TALIA GEMENT OF PATIENT CARE PER NURSING PROTOCOL Performed By: #### L 501.080 ####[facility] [address] [place], [address] FINGERSTICK GLU 98 mg/dL Normal 74-106 [facility] Comment on above: Result Comment: TALIA GEMENT OF PATIENT CARE PER NURSING PROTOCOL Performed By: #### L 501.080 ####[facility] [address] [place], [address] CBC W/Diff, Automatedon 02-02 Absolute Lymph 1.42 X10 3/uL Normal 0.83-4.51 [facility] Comment on above: Performed By: #### L 500.2500, L100.0100 ####[facility] [address] [place], [address] Absolute Neut 7.4 X10 3/uL Normal 2.0-7.7 [facility] Comment on above: Performed By: #### L 500.2500, L100.0100 ####[facility] [address] [place], [address] Basophils/100 WBC (Bld) 0.7 % Normal 0-1 [facility] Comment on above: Performed By: #### L 500.2500, L100.0100 ####[facility] [address] [place], [address] Eosinophils/100 WBC (Bld) 1.7 % Normal 0-5 [facility] Comment on above: Performed By: #### L 500.2500, L100.0100 ####[facility] [address] [place], [address] Erythrocyte distribution width (RBC) [Ratio] 14.1 % Normal 11.6-14.6 [facility] Comment on above: Performed By: #### L 500.2500, L100.0100 ####[facility] [address] [place], [address] Hematocrit (Bld) [Volume fraction] 36.9 % Low 37-47 [facility] Comment on above: Performed By: #### L 500.2500, L100.0100 ####[facility] [address] [place], [address] Hemoglobin (Bld) [Mass/Vol] 11.6 g/dL Low 12.0-15.0 [facility] Comment on above: Performed By: #### L 500.2500, L100.0100 ####[facility] [address] [place], [address] IG% 0.400 Normal 0.0-0.9 [facility] Comment on above: Result Comment: IG% - Immature Granulocytes (promyelocytes, myelocytes andmetamyelocytes) > 1% indicates that a LEFT SHIFT is Present. Performed By: #### L 500.2500, L100.0100 ####[facility] [address] [place], [address] Lymphocytes/100 WBC (Bld) 14.7 % Low 19-41 [facility] Comment on above: Performed By: #### L 500.2500, L100.0100 ####[facility] [address] [place], [address] MCH (RBC) [Entitic mass] 27.1 pg Normal 27.0-32.0 [facility] Comment on above: Performed By: #### L 500.2500, L100.0100 ####[facility] [address] [place], [address] MCHC (RBC) [Mass/Vol] 31.4 g/dL Low 32-36 [facility] Comment on above: Performed By: #### L 500.2500, L100.0100 ####[facility] [address] [place], [address] MCV (RBC) [Entitic vol] 86.2 fL Normal 81-99 [facility] Comment on above: Performed By: #### L 500.2500, L100.0100 ####[facility] [address] [place], [address] Monocytes/100 WBC (Bld) 6.5 % Normal 0-10 [facility] Comment on above: Performed By: #### L 500.2500, L100.0100 ####[facility] [address] [place], [address] Neutrophils/100 WBC (Bld) 76.0 % High 47-70 [facility] Comment on above: Performed By: #### L 500.2500, L100.0100 ####[facility] [address] [place], [address] Nucleated RBC (Bld) [#/Vol] 0 10*3/uL Normal 0-5 [facility] Comment on above: Performed By: #### L 500.2500, L100.0100 ####[facility] [address] [place], [address] Platelet mean volume (Bld) [Entitic vol] 9.7 fL Normal 6.2-12.0 [facility] Comment on above: Performed By: #### L 500.2500, L100.0100 ####[facility] [address] [place], [address] Platelets (Bld) [#/Vol] 254 10*3/uL Normal 150-450 [facility] Comment on above: Performed By: #### L 500.2500, L100.0100 ####[facility] [address] [place], [address] RBC (Bld) [#/Vol] 4.28 10*6/uL Normal 4.2-5.4 [facility] Comment on above: Performed By: #### L 500.2500, L100.0100 ####[facility] [address] [place], [address] RDW SD 43.9 fl Normal 35.1-43.9 [facility] Comment on above: Performed By: #### L 500.2500, L100.0100 ####[facility] [address] [place], [address] WBC (Bld) [#/Vol] 9.7 10*3/uL Normal 4.4-11.0 [facility] Comment on above: Performed By: #### L 500.2500, L100.0100 ####[facility] [address] [place], [address] Discharge Instructionon 02-02 Discharge Instruction Normal [facility] Basic Metabolic Profile (BMP )on 02-16-2024 BUN/CRE 17.7 RATIO Normal 10-20 [facility] Comment on above: Performed By: #### L 100.0100, L500.2500 ####[facility] [address] [place], [address] CA,Total 8.7 mg/dL Normal 8.5-10.1 [facility] Comment on above: Performed By: #### L 100.0100, L500.2500 ####[facility] [address] [place], [address] Chloride [Moles/Vol] 104 mmol/L Normal 98-107 [facility] Comment on above: Performed By: #### L 100.0100, L500.2500 ####[facility] [address] [place], [address] CO2 [Moles/Vol] 28.0 mmol/L Normal 21.0-32.0 [facility] Comment on above: Performed By: #### L 100.0100, L500.2500 ####[facility] [address] [place], [address] Creatinine [Mass/Vol] 0.73 mg/dL Normal 0.55-1.02 [facility] Comment on above: Result Comment: The validity of the calculated GFR GFRAA in patients over70 years has not been determined. Clinical correlation isessential. Performed By: #### L 100.0100, L500.2500 ####[facility] [address] [place], [address] ECRCL 97.60 ml/min Normal [facility] Comment on above: Performed By: #### L 100.0100, L500.2500 ####[facility] [address] [place], [address] EST GFR - AA 107 mL/min Normal >60 [facility] Comment on above: Result Comment: Afri can [place] GFR Calc Performed By: #### L 100.0100, L500.2500 ####[facility] [address] [place], [address] GAP 5 Normal 5-15 [facility] Comment on above: Performed By: #### L 100.0100, L500.2500 ####[facility] [address] [place], [address] GFR/1.73 sq M.predicted among non-blacks MDRD (S/P/Bld) [Vol rate/Area] 88 mL/min/{1.73_m2} Normal >60 [facility] Comment on above: Result Comment: Non- GFR Calc Performed By: #### L 100.0100, L500.2500 ####[facility] [address] [place], [address] Glucose [Mass/Vol] 123 mg/dL High 74-106 [facility] Comment on above: Result Comment: Fast ing Glucose result from 100 to 125 mg/dLsuggests IMPAIRED HOMEOSTASIS per A.D.A. criteria. Performed By: #### L 100.0100, L500.2500 ####[facility] [address] [place], [address] Potassium [Moles/Vol] 3.2 mmol/L Low 3.5-5.1 [facility] Comment on above: Performed By: #### L 100.0100, L500.2500 ####[facility] [address] [place], [address] Sodium [Moles/Vol] 137 mmol/L Normal 136-145 [facility] Comment on above: Performed By: #### L 100.0100, L500.2500 ####[facility] [address] [place], [address] Urea nitrogen [Mass/Vol] 13 mg/dL Normal 7-18 [facility] Comment on above: Performed By: #### L 100.0100, L500.2500 ####[facility] [address] [place], [address] Bedside Glucoseon 02-16-2024 FINGERSTICK GLU 174 mg/dL High [address] [place] [address] Comment on above: Result Comment: TALIA GEMENT OF PATIENT CARE PER NURSING PROTOCOL Performed By: #### L 501.080 ####[facility] [address] [place], [address] FINGERSTICK GLU 114 mg/dL High [facility]106 [facility] Comment on above: Result Comment: TALIA GEMENT OF PATIENT CARE PER NURSING PROTOCOL Performed By: #### L 501.080 ####[facility] [address] [place], [address] FINGERSTICK GLU 192 mg/dL High [address] [place] [address] Comment on above: Result Comment: TALIA GEMENT OF PATIENT CARE PER NURSING PROTOCOL Performed By: #### L 501.080 ####[facility] [address] [place], [address] FINGERSTICK GLU 139 mg/dL High [address] [place] [address] Comment on above: Result Comment: TALIA GEMENT OF PATIENT CARE PER NURSING PROTOCOL Performed By: #### L 501.080 ####[facility] [address] [place], [address] CBC W/Diff, Automatedon 02-02 Absolute Lymph 1.44 X10 3/uL Normal 0.83-4.51 [facility] Comment on above: Performed By: #### L 100.0100, L500.2500 ####[facility] [address] [place], [address] Absolute Neut 5.9 X10 3/uL Normal 2.0-7.7 [facility] Comment on above: Performed By: #### L 100.0100, L500.2500 ####[facility] [address] [place], [address] Basophils/100 WBC (Bld) 0.6 % Normal 0-1 [facility] Comment on above: Performed By: #### L 100.0100, L500.2500 ####[facility] [address] [place], [address] Eosinophils/100 WBC (Bld) 2.3 % Normal 0-5 [facility] Comment on above: Performed By: #### L 100.0100, L500.2500 ####[facility] [address] [place], [address] Erythrocyte distribution width (RBC) [Ratio] 14.2 % Normal 11.6-14.6 [facility] Comment on above: Performed By: #### L 100.0100, L500.2500 ####[facility] [facility] [address] [place], [address] Hematocrit (Bld) [Volume fraction] 36.3 % Low 37-47 [facility] Comment on above: Performed By: #### L 100.0100, L500.2500 ####[facility] [address] [place], [address] Hemoglobin (Bld) [Mass/Vol] 11.4 g/dL Low 12.0-15.0 [facility] Comment on above: Performed By: #### L 100.0100, L500.2500 ####[facility] [address] [place], [address] IG% 0.600 Normal 0.0-0.9 [facility] Comment on above: Result Comment: IG% - Immature Granulocytes (promyelocytes, myelocytes andmetamyelocytes) > 1% indicates that a LEFT SHIFT is Present. Performed By: #### L 100.0100, L500.2500 ####[facility] [address] [place], [address] Lymphocytes/100 WBC (Bld) 17.5 % Low 19-41 [facility] Comment on above: Performed By: #### L 100.0100, L500.2500 ####[facility] [address] [place], [address] MCH (RBC) [Entitic mass] 26.9 pg Low 27.0-32.0 [facility] Comment on above: Performed By: #### L 100.0100, L500.2500 ####[facility] [address] [place], [address] MCHC (RBC) [Mass/Vol] 31.4 g/dL Low 32-36 [facility] Comment on above: Performed By: #### L 100.0100, L500.2500 ####[facility] [address] [place], [address] MCV (RBC) [Entitic vol] 85.6 fL Normal 81-99 [facility] Comment on above: Performed By: #### L 100.0100, L500.2500 ####[facility] [address] [place], [address] Monocytes/100 WBC (Bld) 7.7 % Normal 0-10 [facility] Comment on above: Performed By: #### L 100.0100, L500.2500 ####[facility] [address] [place], [address] Neutrophils/100 WBC (Bld) 71.3 % High 47-70 [facility] Comment on above: Performed By: #### L 100.0100, L500.2500 ####[facility] [address] [place], [address] Nucleated RBC (Bld) [#/Vol] 0 10*3/uL Normal 0-5 [facility] Comment on above: Performed By: #### L 100.0100, L500.2500 ####[facility] [address] [place], [address] Platelet mean volume (Bld) [Entitic vol] 9.4 fL Normal 6.2-12.0 [facility] Comment on above: Performed By: #### L 100.0100, L500.2500 ####[facility] [address] [place], [address] Platelets (Bld) [#/Vol] 241 10*3/uL Normal 150-450 [facility] Comment on above: Performed By: #### L 100.0100, L500.2500 ####[facility] [address] [place], [address] RBC (Bld) [#/Vol] 4.24 10*6/uL Normal 4.2-5.4 [facility] Comment on above: Performed By: #### L 100.0100, L500.2500 ####[facility] [address] [place], [address] RDW SD 43.9 fl Normal 35.1-43.9 [facility] Comment on above: Performed By: #### L 100.0100, L500.2500 ####[facility] [address] [place], [address] WBC (Bld) [#/Vol] 8.2 10*3/uL Normal 4.4-11.0 [facility] Comment on above: Performed By: #### L 100.0100, L500.2500 ####[facility] [address] [place], [address] Basic Metabolic Profile (BMP )on 02-15-2024 BUN/CRE 11.1 RATIO Normal 10-20 [facility] Comment on above: Performed By: #### L 501.9985, L500.2500 ####[facility] [address] [place], [address] CA,Total 8.7 mg/dL Normal 8.5-10.1 [facility] Comment on above: Performed By: #### L 501.9985, L500.2500 ####[facility] [address] [place], [address] Chloride [Moles/Vol] 102 mmol/L Normal 98-107 [facility] Comment on above: Performed By: #### L 501.9985, L500.2500 ####[facility] [address] [place], [address] CO2 [Moles/Vol] 28.0 mmol/L Normal 21.0-32.0 [facility] Comment on above: Performed By: #### L 501.9985, L500.2500 ####[facility] [address] [place], [address] Creatinine [Mass/Vol] 0.63 mg/dL Normal 0.55-1.02 [facility] Comment on above: Result Comment: The validity of the calculated GFR GFRAA in patients over70 years has not been determined. Clinical correlation isessential. Performed By: #### L 501.9985, L500.2500 ####[facility] [address] [place], [address] ECRCL 113.10 ml/min Normal [facility] Comment on above: Performed By: #### L 501.9985, L500.2500 ####[facility] [address] [place], [address] EST GFR - AA 127 mL/min Normal >60 [facility] Comment on above: Result Comment: Afri can Cook Islander GFR Calc Performed By: #### L 501.9985, L500.2500 ####[facility] [address] [place], [address] GAP 5 Normal 5-15 [facility] Comment on above: Performed By: #### L 501.9985, L500.2500 ####[facility] [address] [place], [address] GFR/1.73 sq M.predicted among non-blacks MDRD (S/P/Bld) [Vol rate/Area] 105 mL/min/{1.73_m2} Normal >60 [facility] Comment on above: Result Comment: Non- GFR Calc Performed By: #### L 501.9985, L500.2500 ####[facility] [address] [place], [address] Glucose [Mass/Vol] 151 mg/dL High 74-106 [facility] Comment on above: Result Comment: Fast ing Glucose result greater than or equal to 126 mg/dLsuggests DIABETES MELLITUS per A.D.A. criteria. Performed By: #### L 501.9985, L500.2500 ####[facility] [address] [place], [address] Potassium [Moles/Vol] 3.1 mmol/L Low 3.5-5.1 [facility] Comment on above: Performed By: #### L 501.9985, L500.2500 ####[facility] [address] [place], [address] Sodium [Moles/Vol] 135 mmol/L Low 136-145 [facility] Comment on above: Performed By: #### L 501.9985, L500.2500 ####[facility] [address] [place], [address] Urea nitrogen [Mass/Vol] 7 mg/dL Normal 7-18 [facility] Comment on above: Performed By: #### L 501.9985, L500.2500 ####[facility] [address] [place], [address] Bedside Glucoseon 02-15-2024 FINGERSTICK GLU 153 mg/dL High 74-106 [facility] Comment on above: Result Comment: TALIA CHAMBERS OF PATIENT CARE PER NURSING PROTOCOL Performed By: #### L 501.080 ####[facility] [address] [place], [address] FINGERSTICK GLU 191 mg/dL High 74-106 [facility] Comment on above: Result Comment: TALIA GEMENT OF PATIENT CARE PER NURSING PROTOCOL Performed By: #### L 501.080 ####[facility] [address] [place], [address] FINGERSTICK GLU 157 mg/dL High 74-106 [facility] Comment on above: Result Comment: TALIA GEMENT OF PATIENT CARE PER NURSING PROTOCOL Performed By: #### L 501.080 ####[facility] [address] [place], [address] FINGERSTICK GLU 149 mg/dL High 74-106 [facility] Comment on above: Result Comment: TALIA GEMENT OF PATIENT CARE PER NURSING PROTOCOL Performed By: #### L 501.080 ####[facility] [address] [place], [address] Hemoglobin A1con 02-15-2024 HbA1c (Bld) [Mass fraction] 9.8 % High 3.8-5.6 [facility] Comment on above: Result Comment: Norm al < 5.7 % Prediabetic 5.7 - 6.4 % Diabetic >or= 6.5 % Please note range changes. Performed By: #### L 501.9985, L500.2500 ####[facility] [address] [place], [address] Abdomen/Pelvis W IV Cont ONL Yon 02-14-2024 Abdomen/Pelvis W IV Cont ONLY Normal [facility] Basic Metabolic Profile (BMP )on 02-14-2024 BUN/CRE 9.0 RATIO Low 10-20 [facility] Comment on above: Performed By: #### L 500.2500, L100.0100 ####[facility] [address] [place], [address] CA,Total 8.9 mg/dL Normal 8.5-10.1 [facility] Comment on above: Performed By: #### L 500.2500, L100.0100 ####[facility] [address] [place], [address] Chloride [Moles/Vol] 102 mmol/L Normal 98-107 [facility] Comment on above: Performed By: #### L 500.2500, L100.0100 ####[facility] [address] [place], [address] CO2 [Moles/Vol] 24.0 mmol/L Normal 21.0-32.0 [facility] Comment on above: Performed By: #### L 500.2500, L100.0100 ####[facility] [address] [place], [address] Creatinine [Mass/Vol] 0.66 mg/dL Normal 0.55-1.02 [facility] Comment on above: Result Comment: The validity of the calculated GFR GFRAA in patients over70 years has not been determined. Clinical correlation isessential. Performed By: #### L 500.2500, L100.0100 ####[facility] [address] [place], [address] EST GFR - AA 120 mL/min Normal >60 [facility] Comment on above: Result Comment: Afri can [place] GFR Calc Performed By: #### L 500.2500, L100.0100 ####[facility] [address] [place], [address] GAP 7 Normal 5-15 [facility] Comment on above: Performed By: #### L 500.2500, L100.0100 ####[facility] [address] [place], [address] GFR/1.73 sq M.predicted among non-blacks MDRD (S/P/Bld) [Vol rate/Area] 99 mL/min/{1.73_m2} Normal >60 [facility] Comment on above: Result Comment: Non- GFR Calc Performed By: #### L 500.2500, L100.0100 ####[facility] [address] [place], [address] Glucose [Mass/Vol] 257 mg/dL High 74-106 [facility] Comment on above: Result Comment: Gluc ose result greater than or equal to 200 mg/dLsuggests DIABETES MELLITUS per A.D.A. criteria. Performed By: #### L 500.2500, L100.0100 ####[facility] [address] [place], [address] Potassium [Moles/Vol] 3.2 mmol/L Low 3.5-5.1 [facility] Comment on above: Performed By: #### L 500.2500, L100.0100 ####[facility] [address] [place], [address] Sodium [Moles/Vol] 133 mmol/L Low 136-145 [facility] Comment on above: Performed By: #### L 500.2500, L100.0100 ####[facility] [address] [place], [address] Urea nitrogen [Mass/Vol] 6 mg/dL Low 7-18 [facility] Comment on above: Performed By: #### L 500.2500, L100.0100 ####[facility] [address] [place], [address] Bedside Glucoseon 02-14-2024 FINGERSTICK GLU 300 mg/dL High 74-106 [facility] Comment on above: Result Comment: TALIA JIMMIEENT OF PATIENT CARE PER NURSING PROTOCOL Performed By: #### L 501.080 ####[facility] [address] [place], [address] CBC W/Diff, Automatedon 02-02 Absolute Lymph 0.99 X10 3/uL Normal 0.83-4.51 [facility] Comment on above: Order Comment: REUBEN Gomez PREVIOUS SPECIMEN REJECTED DUE TOSPECIMEN BEING QNS. 02/14/24 1402 Jevon R Stoner. Performed By: #### L 100.0100 ####[facility] [address] [place], [address] Absolute Neut 6.1 X10 3/uL Normal 2.0-7.7 [facility] Comment on above: Order Comment: REDRA W. PREVIOUS SPECIMEN REJECTED DUE TOSPECIMEN BEING QNS. 02/14/24 1402 Jevon Vergarar. Performed By: #### L 100.0100 ####[facility] [address] [place], [address] Basophils/100 WBC (Bld) 0.8 % Normal 0-1 [facility] Comment on above: Order Comment: REDRA W. PREVIOUS SPECIMEN REJECTED DUE TOSPECIMEN BEING QNS. 02/14/24 1402 Jevon Vergarar. Performed By: #### L 100.0100 ####[facility] [address] [place], [address] Eosinophils/100 WBC (Bld) 1.5 % Normal 0-5 [facility] Comment on above: Order Comment: REDRA W. PREVIOUS SPECIMEN REJECTED DUE TOSPECIMEN BEING QNS. 02/14/24 1402 Jevon Vergarar. Performed By: #### L 100.0100 ####[facility] [address] [place], [address] Erythrocyte distribution width (RBC) [Ratio] 13.8 % Normal 11.6-14.6 [facility] Comment on above: Order Comment: REDRA W. PREVIOUS SPECIMEN REJECTED DUE TOSPECIMEN BEING QNS. 02/14/24 1402 Jevon Vergarar. Performed By: #### L 100.0100 ####[facility] [address] [place], [address] Hematocrit (Bld) [Volume fraction] 38.9 % Normal 37-47 [facility] Comment on above: Order Comment: REDRA W. PREVIOUS SPECIMEN REJECTED DUE TOSPECIMEN BEING QNS. 09/05/27 1402 Jevon Squires Performed By: #### L 100.0100 ####[facility] [address] [place], [address] Hemoglobin (Bld) [Mass/Vol] 12.3 g/dL Normal 12.0-15.0 [facility] Comment on above: Order Comment: REDRA W. PREVIOUS SPECIMEN REJECTED DUE TOSPECIMEN BEING QNS. 02/14/241401 Jevon Squires Performed By: #### L 100.0100 ####[facility] [address] [place], [address] IG% 0.400 Normal 0.0-0.9 [facility] Comment on above: Order Comment: REDRA W. PREVIOUS SPECIMEN REJECTED DUE TOSPECIMEN BEING QNS. 02/14/24 1402 Jevon Squires Result Comment: IG% - Immature Granulocytes (promyelocytes, myelocytes andmetamyelocytes) > 1% indicates that a LEFT SHIFT is Present. Performed By: #### L 100.0100 ####[facility] [address] [place], [address] Lymphocytes/100 WBC (Bld) 12.6 % Low 19-41 [facility] Comment on above: Order Comment: REDRA W. PREVIOUS SPECIMEN REJECTED DUE TOSPECIMEN BEING QNS. 02/14/24 1402 Jevon Squires Performed By: #### L 100.0100 ####[facility] [address] [place], [address] MCH (RBC) [Entitic mass] 26.7 pg Low 27.0-32.0 [facility] Comment on above: Order Comment: REDRA W. PREVIOUS SPECIMEN REJECTED DUE TOSPECIMEN BEING QNS. 02/14/24 1402 Jevon Squires Performed By: #### L 100.0100 ####[facility] [address] [place], [address] MCHC (RBC) [Mass/Vol] 31.6 g/dL Low 32-36 [facility] Comment on above: Order Comment: REDRA W. PREVIOUS SPECIMEN REJECTED DUE TOSPECIMEN BEING QNS. 02/14/24 1402 Jevon Squires Performed By: #### L 100.0100 ####[facility] [address] [place], [address] MCV (RBC) [Entitic vol] 84.4 fL Normal 81-99 [facility] Comment on above: Order Comment: REDRA W. PREVIOUS SPECIMEN REJECTED DUE TOSPECIMEN BEING QNS. 02/14/24 1402 Jevon Angeles. Performed By: #### L 100.0100 ####[facility] [address] [place], [address] Monocytes/100 WBC (Bld) 6.9 % Normal 0-10 [facility] Comment on above: Order Comment: REDRA W. PREVIOUS SPECIMEN REJECTED DUE TOSPECIMEN BEING QNS. 02/14/24 1402 Jevon Angeles. Performed By: #### L 100.0100 ####[facility] [address] [place], [address] Neutrophils/100 WBC (Bld) 77.8 % High 47-70 [facility] Comment on above: Order Comment: REDRA W. PREVIOUS SPECIMEN REJECTED DUE TOSPECIMEN BEING QNS. 02/14/24 1402 Jevon Angeles. Performed By: #### L 100.0100 ####[facility] [address] [place], [address] Nucleated RBC (Bld) [#/Vol] 0 10*3/uL Normal 0-5 [facility] Comment on above: Order Comment: REDRA W. PREVIOUS SPECIMEN REJECTED DUE TOSPECIMEN BEING QNS. 02/14/24 1402 Jevon Squires Performed By: #### L 100.0100 ####[facility] [address] [place], [address] Platelet mean volume (Bld) [Entitic vol] 9.4 fL Normal 6.2-12.0 [facility] Comment on above: Order Comment: REDRA W. PREVIOUS SPECIMEN REJECTED DUE TOSPECIMEN BEING QNS. 02/14/24 1402 Jevon Vergarar. Performed By: #### L 100.0100 ####[facility] [address] [place], [address] Platelets (Bld) [#/Vol] 243 10*3/uL Normal 150-450 [facility] Comment on above: Order Comment: REDRA W. PREVIOUS SPECIMEN REJECTED DUE TOSPECIMEN BEING QNS. 02/14/24 1402 Jevon Vergarar. Performed By: #### L 100.0100 ####[facility] [address] [place], [address] RBC (Bld) [#/Vol] 4.61 10*6/uL Normal 4.2-5.4 [facility] Comment on above: Order Comment: REDRA W. PREVIOUS SPECIMEN REJECTED DUE TOSPECIMEN BEING QNS. 02/14/24 1402 Jevon Vergarar. Performed By: #### L 100.0100 ####[facility] [address] [place], [address] RDW SD 42.3 fl Normal 35.1-43.9 [facility] Comment on above: Order Comment: REDRA W. PREVIOUS SPECIMEN REJECTED DUE TOSPECIMEN BEING QNS. 02/14/24 1402 Jevon Vergarar. Performed By: #### L 100.0100 ####[facility] [address] [place], [address] WBC (Bld) [#/Vol] 7.8 10*3/uL Normal 4.4-11.0 [facility] Comment on above: Order Comment: REDRA W. PREVIOUS SPECIMEN REJECTED DUE TOSPECIMEN BEING QNS. 02/14/24 1402 Jevon Vergarar. Performed By: #### L 100.0100 ####[facility] [address] [place], [address] Absolute Neut Normal 2.0-7.7 [facility] Comment on above: Result Comment: This specimen has been REJECTED due to Laboratory criteria:Quanity Not Sufficient.ER has been notified of need of recollection.02/14/241400 Jevon R Stoner Performed By: #### L 500.2500, L100.0100 ####[facility] [address] [place], [address] HCT Normal 37-47 [facility] Comment on above: Result Comment: This specimen has been REJECTED due to Laboratory criteria:Quanity Not Sufficient.ER has been notified of need of recollection.02/14/241400 Jevon R Stoner Performed By: #### L 500.2500, L100.0100 ####[facility] [address] [place], [address] HGB Normal 12.0-15.0 [facility] Comment on above: Result Comment: This specimen has been REJECTED due to Laboratory criteria:Quanity Not Sufficient.ER has been notified of need of recollection.02/14/241400 Jevon R Stoner Performed By: #### L 500.2500, L100.0100 ####[facility] [address] [place], [address] MCH Normal 27.0-32.0 [facility] Comment on above: Result Comment: This specimen has been REJECTED due to Laboratory criteria:Quanity Not Sufficient.ER has been notified of need of recollection.02/14/241400 Jevon R Stoner Performed By: #### L 500.2500, L100.0100 ####[facility] [address] [place], [address] MCHC Normal 32-36 [facility] Comment on above: Result Comment: This specimen has been REJECTED due to Laboratory criteria:Quanity Not Sufficient.ER has been notified of need of recollection.02/14/241400 Jevon R Stoner Performed By: #### L 500.2500, L100.0100 ####[facility] [address] [place], [address] MCV Normal 81-99 [facility] Comment on above: Result Comment: This specimen has been REJECTED due to Laboratory criteria:Quanity Not Sufficient.ER has been notified of need of recollection.02/14/24 140 Jevon R Stoner Performed By: #### L 500.2500, L100.0100 ####[facility] [address] [place], [address] NEUT% Normal 47-70 [facility] Comment on above: Result Comment: This specimen has been REJECTED due to Laboratory criteria:Quanity Not Sufficient.ER has been notified of need of recollection.02/14/241400 Jevon R Stoner Performed By: #### L 500.2500, L100.0100 ####[facility] [address] [place], [address] PLT Normal 150-450 [facility] Comment on above: Result Comment: This specimen has been REJECTED due to Laboratory criteria:Quanity Not Sufficient.ER has been notified of need of recollection.02/14/241400 Jevon R Stoner Performed By: #### L 500.2500, L100.0100 ####[facility] [address] [place], [address] RBC Normal 4.2-5.4 [facility] Comment on above: Result Comment: This specimen has been REJECTED due to Laboratory criteria:Quanity Not Sufficient.ER has been notified of need of recollection.02/14/241400 Jevon R Stoner Performed By: #### L 500.2500, L100.0100 ####[facility] [address] [place], [address] RDW CV Normal 11.6-14.6 [facility] Comment on above: Result Comment: This specimen has been REJECTED due to Laboratory criteria:Quanity Not Sufficient.ER has been notified of need of recollection.02/14/24 1401 Jevon Osborne Stoner Performed By: #### L 500.2500, L100.0100 ####[facility] [address] [place], [address] RDW SD Normal 35.1-43.9 [facility] Comment on above: Result Comment: This specimen has been REJECTED due to Laboratory criteria:Quanity Not Sufficient.ER has been notified of need of recollection.02/14/24 1401 Jevon Osborne Stoner Performed By: #### L 500.2500, L100.0100 ####[facility] [address] [place], [address] WBC Normal 4.4-11.0 [facility] Comment on above: Result Comment: This specimen has been REJECTED due to Laboratory criteria:Quanity Not Sufficient.ER has been notified of need of recollection.02/14/24 140 Jevon Osborne Stoner Performed By: #### L 500.2500, L100.0100 ####[facility] [address] [place], [address] Emergency Department Summary on 02-14-2024 Emergency Department Summary Normal [facility] H AND P Ex[facility] - [facility] 02-14-2024 H&P Exam - Hospitalist Normal [facility] 02-06-2024 [facility] Telephone (KAITY) ----- TRENTON JACKSON ([id number]) 1970 F [place] Date Time Provider Department 02/06/24 GERDA RIVERO During your visit today, we recorded the following information about you: Allergies As of Date: 02/06/2024 Noted Allergy Reaction LATEX 01/18/2011 9 - Itching Comments: Red and dry cracking skin Date Reviewed: 10/19/2023 Reviewed by: Jose Antonio Singh APRN.CUSTOMER DATA TECHNICIAN - Fully Assessed Reason for Visit: Appointment [186] Cmt: Made multiple attempts to contact patient to schedule appointment with regarding incidental growth found in adrenal gland, not able to contact. Scheduled appointment with for 02/20 at 1:30 PM and mailed out appointment reminder. Prescriptions as of 02/06/2024 - baclofen 5 mg tablet Take 5 mg by mouth two times a day. - midodrine (PROAMATINE) 2.5 mg tablet Take 2.5 mg by mouth two times a day. - oxyCODONE IR (ROXICODONE) 5 mg immediate release tablet Take 5 mg by mouth every 8 hours as needed for pain. - acetaminophen (TYLENOL) 325 mg tablet Take 3 tablets by mouth every 6 hours as needed for pain. - polyethylene glycol 3350 17 gram packet Take 1 Packet by mouth once daily. Dissolve dose in 4 - 8 ounces of liquid and take as directed. - senna-docusate (SENNA-S) 8.6-50 mg per tablet Take 1 tablet by mouth two times a day. - nicotine (NICODERM) 7 mg/24 hr Apply 1 Patch as directed once daily. - prochlorperazine (COMPAZINE) 5 mg tablet Take 1 tablet by mouth every 6 hours as needed for nausea/vomiting. - ENTRESTO 24-26 mg tablet Take 1 tablet by mouth two times a day. - spironolactone (ALDACTONE) 50 mg tablet Take 50 mg by mouth once daily. - carvedilol (COREG) 12.5 mg tablet Take 12.5 mg by mouth two times a day. - furosemide (LASIX) 40 mg tablet Take 40 mg by mouth two times a day. - cholecalciferol (VITAMIN D3) 1,000 unit tab tablet Take 1,000 Units by mouth once daily. - clopidogrel (PLAVIX) 75 mg tablet Take 75 mg by mouth once daily. - dapagliflozin propanediol (FARXIGA) 10 mg tablet Take 10 mg by mouth once daily. - pantoprazole DR (PROTONIX) 40 mg tablet Take 40 mg by mouth once daily. - Blood-Glucose Meter (FREESTYLE LITE METER) monitoring kit Check sugars 4 times a day DX E11.8 - gabapentin (NEURONTIN) 300 mg capsule Take 300 mg by mouth three times daily. - escitalopram oxalate (LEXAPRO) 10 mg tablet Take 10 mg by mouth once daily. - nicotine (NICODERM) 7 mg/24 hr Apply 1 Patch as directed every 24 hours. - blood sugar diagnostic (FREESTYLE TEST) test strip Check sugars 4 times/d. Use as directed. - insulin needles, DISPOSABLE, (UNIFINE PENTIPS) 31 gauge x 5/16 ndle Use with insulin injections - ondansetron orally disintegrating (ZOFRAN ODT) 4 mg disintegrating tablet Take 1 tablet by mouth every 6 hours as needed. - nitroglycerin sublingual (NITROQUICK) 0.4 mg SL tablet Dissolve 1 tablet under the tongue every 5 minutes as needed for Chest Pain for up to 3 doses. - VENTOLIN HFA 90 mcg/actuation inhaler Inhale 2 Puffs as instructed every 4 hours as needed for Wheezing/Shortness of Breath. - insulin glargine (LANTUS SOLOSTAR, BASAGLAR KWIKPEN) 100 unit/mL (3 mL) inpn Inject 40 Units subcutaneously twice daily. - Blood Pressure Monitor (BLOOD PRESSURE KIT) kit 1 Each once daily. - atorvastatin (LIPITOR) 80 mg tablet Take 1 tablet by mouth daily at bedtime. - aspirin, enteric coated (ASPIRIN, ENTERIC COATED) 81 mg EC tablet Take 1 tablet by mouth once daily. Meds Comments as of 03/07/2017: Pt held all medications X 4 days per her xlbter-34-8-2017. Problem List As Of Date 02/06/2024 Noted Resolved Abdominal pain, other specified site [R10.9] 10/23/2012 Essential hypertension [I10] 02/20/2017 Pericardial cyst [Q24.8] 02/20/2017 Pericardial effusion [I31.39] 02/20/2017 Depression [F32.A] 02/20/2017 Anxiety [F41.9] 02/20/2017 Right-sided low back pain with right-sided scia*02/20/2017 Type 2 diabetes mellitus with complication, wit*03/07/2017 Chest pain [R07.9] 11/30/2017 Dyslipidemia [E78.5] 11/30/2017 Chest pain at rest [R07.9] 11/30/2017 Cardiomyopathy (HCC) [I42.9] 12/02/2017 Smoker [F17.200] 12/02/2017 Leucocytosis [D72.829] 12/03/2017 Erythrocytosis [D75.1] 12/03/2017 Hypotension [I95.9] 12/03/2017 Unstable angina (HCC) [I20.0] 12/05/2017 Uncontrolled type 2 diabetes mellitus with circ*12/06/2017 Primary hypertension [I10] 12/06/2017 Acute systolic heart failure (HCC) [I50.21] 12/06/2017 Acute diverticulitis [K57.92] 06/08/2018 06/12/2018 Uncontrolled type 2 diabetes mellitus with hype*06/08/2018 Chronic systolic CHF (congestive heart failure)*06/08/2018 Constipation [K59.00] 06/08/2018 06/12/2018 Anxiety and depression [F41.9, F32.A] 06/08/2018 Cannabis use disorder, mild, abuse [F12.10] 07/20/2018 Frailty [R54] 07/20/2018 Coronary artery (more content not included)... Normal [facility] Abdomen/Pelvis W IV Cont ONL Yon 01-10-2024 Abdomen/Pelvis W IV Cont ONLY Normal [facility] Basic Metabolic Profile (BMP )on 01-10-2024 BUN/CRE 11.2 RATIO Normal 10-20 [facility] Comment on above: Performed By: #### L 500.2500, L100.0100 ####[facility] [address] [place], [address] CA,Total 9.5 mg/dL Normal 8.5-10.1 [facility] Comment on above: Performed By: #### L 500.2500, L100.0100 ####[facility] [address] [place], [address] Chloride [Moles/Vol] 100 mmol/L Normal 98-107 [facility] Comment on above: Performed By: #### L 500.2500, L100.0100 ####[facility] [address] [place], [address] CO2 [Moles/Vol] 25.0 mmol/L Normal 21.0-32.0 [facility] Comment on above: Performed By: #### L 500.2500, L100.0100 ####[facility] [address] [place], [address] Creatinine [Mass/Vol] 0.89 mg/dL Normal 0.55-1.02 [facility] Comment on above: Result Comment: The validity of the calculated GFR GFRAA in patients over70 years has not been determined. Clinical correlation isessential. Performed By: #### L 500.2500, L100.0100 ####[facility] [address] [place], [address] ECRCL 82.34 ml/min Normal [facility] Comment on above: Performed By: #### L 500.2500, L100.0100 ####[facility] [address] [place], [address] EST GFR - AA 85 mL/min Normal >60 [facility] Comment on above: Result Comment: Afri can [place] GFR Calc Performed By: #### L 500.2500, L100.0100 ####[facility] [address] [place], [address] GAP 7 Normal 5-15 [facility] Comment on above: Performed By: #### L 500.2500, L100.0100 ####[facility] [address] [place], [address] GFR/1.73 sq M.predicted among non-blacks MDRD (S/P/Bld) [Vol rate/Area] 70 mL/min/{1.73_m2} Normal >60 [facility] Comment on above: Result Comment: Non- GFR Calc Performed By: #### L 500.2500, L100.0100 ####[facility] [address] [place], [address] Glucose [Mass/Vol] 333 mg/dL High 74-106 [facility] Comment on above: Result Comment: Gluc ose result greater than or equal to 200 mg/dLsuggests DIABETES MELLITUS per A.D.A. criteria. Performed By: #### L 500.2500, L100.0100 ####[facility] [address] [place], [address] Potassium [Moles/Vol] 4.0 mmol/L Normal 3.5-5.1 [facility] Comment on above: Performed By: #### L 500.2500, L100.0100 ####[facility] [address] [place], [address] Sodium [Moles/Vol] 132 mmol/L Low 136-145 [facility] Comment on above: Performed By: #### L 500.2500, L100.0100 ####[facility] [address] [place], [address] Urea nitrogen [Mass/Vol] 10 mg/dL Normal 7-18 [facility] Comment on above: Performed By: #### L 500.2500, L100.0100 ####[facility] [address] [place], [address] CBC W/Diff, Automatedon 08-0 8-2024 Absolute Lymph 1.25 X10 3/uL Normal 0.83-4.51 [facility] Comment on above: Performed By: #### L 500.2500, L100.0100 ####[facility] [address] [place], [address] Absolute Neut 8.8 X10 3/uL High 2.0-7.7 [facility] Comment on above: Performed By: #### L 500.2500, L100.0100 ####[facility] [address] [place], [address] Basophils/100 WBC (Bld) 0.4 % Normal 0-1 [facility] Comment on above: Performed By: #### L 500.2500, L100.0100 ####[facility] [address] [place], [address] Eosinophils/100 WBC (Bld) 1.9 % Normal 0-5 [facility] Comment on above: Performed By: #### L 500.2500, L100.0100 ####[facility] [address] [place], [address] Erythrocyte distribution width (RBC) [Ratio] 13.4 % Normal 11.6-14.6 [facility] Comment on above: Performed By: #### L 500.2500, L100.0100 ####[facility] [address] [place], [address] Hematocrit (Bld) [Volume fraction] 37.0 % Normal 37-47 [facility] Comment on above: Performed By: #### L 500.2500, L100.0100 ####[facility] [address] [place], [address] Hemoglobin (Bld) [Mass/Vol] 12.5 g/dL Normal 12.0-15.0 [facility] Comment on above: Performed By: #### L 500.2500, L100.0100 ####[facility] [address] [place], [address] IG% 0.400 Normal 0.0-0.9 [facility] Comment on above: Result Comment: IG% - Immature Granulocytes (promyelocytes, myelocytes andmetamyelocytes) > 1% indicates that a LEFT SHIFT is Present. Performed By: #### L 500.2500, L100.0100 ####[facility] [address] [place], [address] Lymphocytes/100 WBC (Bld) 11.5 % Low 19-41 [facility] Comment on above: Performed By: #### L 500.2500, L100.0100 ####[facility] [address] [place], [address] MCH (RBC) [Entitic mass] 27.6 pg Normal 27.0-32.0 [facility] Comment on above: Performed By: #### L 500.2500, L100.0100 ####[facility] [address] [place], [address] MCHC (RBC) [Mass/Vol] 33.8 g/dL Normal 32-36 [facility] Comment on above: Performed By: #### L 500.2500, L100.0100 ####[facility] [address] [place], [address] MCV (RBC) [Entitic vol] 81.7 fL Normal 81-99 [facility] Comment on above: Performed By: #### L 500.2500, L100.0100 ####[facility] [address] [place], [address] Monocytes/100 WBC (Bld) 5.1 % Normal 0-10 [facility] Comment on above: Performed By: #### L 500.2500, L100.0100 ####[facility] [address] [place], [address] Neutrophils/100 WBC (Bld) 80.7 % High 47-70 [facility] Comment on above: Performed By: #### L 500.2500, L100.0100 ####[facility] [address] [place], [address] Nucleated RBC (Bld) [#/Vol] 0 10*3/uL Normal 0-5 [facility] Comment on above: Performed By: #### L 500.2500, L100.0100 ####[facility] [address] [place], [address] Platelet mean volume (Bld) [Entitic vol] 9.2 fL Normal 6.2-12.0 [facility] Comment on above: Performed By: #### L 500.2500, L100.0100 ####[facility] [address] [place], [address] Platelets (Bld) [#/Vol] 242 10*3/uL Normal 150-450 [facility] Comment on above: Performed By: #### L 500.2500, L100.0100 ####[facility] [address] [place], [address] RBC (Bld) [#/Vol] 4.53 10*6/uL Normal 4.2-5.4 [facility] Comment on above: Performed By: #### L 500.2500, L100.0100 ####[facility] [address] [place], [address] RDW SD 39.7 fl Normal 35.1-43.9 [facility] Comment on above: Performed By: #### L 500.2500, L100.0100 ####[facility] [address] [place], [address] WBC (Bld) [#/Vol] 10.9 10*3/uL Normal 4.4-11.0 [facility] Comment on above: Performed By: #### L 500.2500, L100.0100 ####[facility] [address] [place], [address] Emergency Department Summary on 01-10-2024 Emergency Department Summary Normal [facility] Urinalysis, Completeon 01-09 RBC 0-5 SEEN Normal 0-5 [facility] Comment on above: Order Comment: CLEAN CATCH Performed By: #### L 400.0001 ####[facility] [address] [place], [address] WBC 0-5 SEEN Normal 0-5 [facility] Comment on above: Order Comment: CLEAN CATCH Performed By: #### L 400.0001 ####[facility] [address] [place], [address] BACTERIA 0 SEEN Normal None Seen [facility] Comment on above: Order Comment: CLEAN CATCH Performed By: #### L 400.0001 ####[facility] [address] [place], [address] EPI,SQUAMOUS 0 SEEN Normal 5-10 [facility] Comment on above: Order Comment: CLEAN CATCH Performed By: #### L 400.0001 ####[facility] [address] [place], [address] Mucus Ql (Urine sed) 0 SEEN Normal [facility] Comment on above: Order Comment: CLEAN CATCH Performed By: #### L 400.0001 ####[facility] [address] [place], [address] Basic Metabolic Profile (BMP )on 01-07-2024 BUN Normal 7-18 [facility] Comment on above: Result Comment: Canc elled via OM: Order cancelled - Patient discharged Performed By: #### L 500.2500, L100.0100 ####[facility] [address] [place], [address] BUN/CRE Normal 10-20 [facility] Comment on above: Result Comment: Canc elled via OM: Order cancelled - Patient discharged Performed By: #### L 500.2500, L100.0100 ####[facility] [address] [place], [address] CA,Total Normal 8.5-10.1 [facility] Comment on above: Result Comment: Canc elled via OM: Order cancelled - Patient discharged Performed By: #### L 500.2500, L100.0100 ####[facility] [address] [place], [address] CL Normal 98-107 [facility] Comment on above: Result Comment: Canc elled via OM: Order cancelled - Patient discharged Performed By: #### L 500.2500, L100.0100 ####[facility] [address] [place], [address] CO2 Normal 21.0-32.0 [facility] Comment on above: Result Comment: Canc elled via OM: Order cancelled - Patient discharged Performed By: #### L 500.2500, L100.0100 ####[facility] [address] [place], [address] CREAT,SERUM Normal 0.55-1.02 [facility] Comment on above: Result Comment: Canc elled via OM: Order cancelled - Patient discharged Performed By: #### L 500.2500, L100.0100 ####[facility] [address] [place], [address] EST GFR Normal >60 [facility] Comment on above: Result Comment: Canc elled via OM: Order cancelled - Patient discharged Performed By: #### L 500.2500, L100.0100 ####[facility] [address] [place], [address] EST GFR - AA Normal >60 [facility] Comment on above: Result Comment: Canc elled via OM: Order cancelled - Patient discharged Performed By: #### L 500.2500, L100.0100 ####[facility] [address] [place], [address] GAP Normal 5-15 [facility] Comment on above: Result Comment: Canc elled via OM: Order cancelled - Patient discharged Performed By: #### L 500.2500, L100.0100 ####[facility] [address] [place], [address] GLU Normal 74-106 [facility] Comment on above: Result Comment: Canc elled via OM: Order cancelled - Patient discharged Performed By: #### L 500.2500, L100.0100 ####[facility] [address] [place], [address] Potassium Normal 3.5-5.1 [facility] Comment on above: Result Comment: Canc elled via OM: Order cancelled - Patient discharged Performed By: #### L 500.2500, L100.0100 ####[facility] [address] [place], [address] Basic Metabolic Profile (BMP) Normal 136-145 [facility] Comment on above: Result Comment: Canc elled via OM: Order cancelled - Patient discharged Performed By: #### L 500.2500, L100.0100 ####[facility] [address] [place], [address] CBC W/Diff, Automatedon 08-0 -2023 Absolute Neut Normal 2.0-7.7 [facility] Comment on above: Result Comment: Canc elled via OM: Order cancelled - Patient discharged Performed By: #### L 500.2500, L100.0100 ####[facility] [address] [place], [address] HCT Normal 37-47 [facility] Comment on above: Result Comment: Canc elled via OM: Order cancelled - Patient discharged Performed By: #### L 500.2500, L100.0100 ####[facility] [address] [place], [address] HGB Normal 12.0-15.0 [facility] Comment on above: Result Comment: Canc elled via OM: Order cancelled - Patient discharged Performed By: #### L 500.2500, L100.0100 ####[facility] [address] [place], [address] MCH Normal 27.0-32.0 [facility] Comment on above: Result Comment: Canc elled via OM: Order cancelled - Patient discharged Performed By: #### L 500.2500, L100.0100 ####[facility] [address] [place], [address] MCHC Normal 32-36 [facility] Comment on above: Result Comment: Canc elled via OM: Order cancelled - Patient discharged Performed By: #### L 500.2500, L100.0100 ####[facility] [address] [place], [address] MCV Normal 81-99 [facility] Comment on above: Result Comment: Canc elled via OM: Order cancelled - Patient discharged Performed By: #### L 500.2500, L100.0100 ####[facility] [address] [place], [address] NEUT% Normal 47-70 [facility] Comment on above: Result Comment: Canc elled via OM: Order cancelled - Patient discharged Performed By: #### L 500.2500, L100.0100 ####[facility] [address] [place], [address] PLT Normal 150-450 [facility] Comment on above: Result Comment: Canc elled via OM: Order cancelled - Patient discharged Performed By: #### L 500.2500, L100.0100 ####[facility] [address] [place], [address] RBC Normal 4.2-5.4 [facility] Comment on above: Result Comment: Canc elled via OM: Order cancelled - Patient discharged Performed By: #### L 500.2500, L100.0100 ####[facility] [address] [place], [address] RDW CV Normal 11.6-14.6 [facility] Comment on above: Result Comment: Canc elled via OM: Order cancelled - Patient discharged Performed By: #### L 500.2500, L100.0100 ####[facility] [address] [place], [address] RDW SD Normal 35.1-43.9 [facility] Comment on above: Result Comment: Canc elled via OM: Order cancelled - Patient discharged Performed By: #### L 500.2500, L100.0100 ####[facility] [address] [place], [address] WBC Normal 4.4-11.0 [facility] Comment on above: Result Comment: Canc elled via OM: Order cancelled - Patient discharged Performed By: #### L 500.2500, L100.0100 ####[facility] [address] [place], [address] Basic Metabolic Profile (BMP )on 01-06-2024 BUN Normal 7-18 [facility] Comment on above: Result Comment: Canc elled via OM: Order cancelled - Patient discharged Performed By: #### L 100.0100, L500.2500 ####[facility] [address] [place], [address] BUN/CRE Normal 10-20 [facility] Comment on above: Result Comment: Canc elled via OM: Order cancelled - Patient discharged Performed By: #### L 100.0100, L500.2500 ####[facility] [address] [place], [address] CA,Total Normal 8.5-10.1 [facility] Comment on above: Result Comment: Canc elled via OM: Order cancelled - Patient discharged Performed By: #### L 100.0100, L500.2500 ####[facility] [address] [place], [address] CL Normal 98-107 [facility] Comment on above: Result Comment: Canc elled via OM: Order cancelled - Patient discharged Performed By: #### L 100.0100, L500.2500 ####[facility] [address] [place], [address] CO2 Normal 21.0-32.0 [facility] Comment on above: Result Comment: Canc elled via OM: Order cancelled - Patient discharged Performed By: #### L 100.0100, L500.2500 ####[facility] [address] [place], [address] CREAT,SERUM Normal 0.55-1.02 [facility] Comment on above: Result Comment: Canc elled via OM: Order cancelled - Patient discharged Performed By: #### L 100.0100, L500.2500 ####[facility] [address] [place], [address] EST GFR Normal >60 [facility] Comment on above: Result Comment: Canc elled via OM: Order cancelled - Patient discharged Performed By: #### L 100.0100, L500.2500 ####[facility] [address] [place], [address] EST GFR - AA Normal >60 [facility] Comment on above: Result Comment: Canc elled via OM: Order cancelled - Patient discharged Performed By: #### L 100.0100, L500.2500 ####[facility] [address] [place], [address] GAP Normal 5-15 [facility] Comment on above: Result Comment: Canc elled via OM: Order cancelled - Patient discharged Performed By: #### L 100.0100, L500.2500 ####[facility] [address] [place], [address] GLU Normal 74-106 [facility] Comment on above: Result Comment: Canc elled via OM: Order cancelled - Patient discharged Performed By: #### L 100.0100, L500.2500 ####[facility] [address] [place], [address] Potassium Normal 3.5-5.1 [facility] Comment on above: Result Comment: Canc elled via OM: Order cancelled - Patient discharged Performed By: #### L 100.0100, L500.2500 ####[facility] [address] [place], [address] Basic Metabolic Profile (BMP) Normal 136-145 [facility] Comment on above: Result Comment: Canc elled via OM: Order cancelled - Patient discharged Performed By: #### L 100.0100, L500.2500 ####[facility] [address] [place], [address] CBC W/Diff, Automatedon 08-0 -2023 Absolute Neut Normal 2.0-7.7 [facility] Comment on above: Result Comment: Canc elled via OM: Order cancelled - Patient discharged Performed By: #### L 100.0100, L500.2500 ####[facility] [address] [place], [address] HCT Normal 37-47 [facility] Comment on above: Result Comment: Canc elled via OM: Order cancelled - Patient discharged Performed By: #### L 100.0100, L500.2500 ####[facility] [address] [place], [address] HGB Normal 12.0-15.0 [facility] Comment on above: Result Comment: Canc elled via OM: Order cancelled - Patient discharged Performed By: #### L 100.0100, L500.2500 ####[facility] [address] [place], [address] MCH Normal 27.0-32.0 [facility] Comment on above: Result Comment: Canc elled via OM: Order cancelled - Patient discharged Performed By: #### L 100.0100, L500.2500 ####[facility] [address] [place], [address] MCHC Normal 32-36 [facility] Comment on above: Result Comment: Canc elled via OM: Order cancelled - Patient discharged Performed By: #### L 100.0100, L500.2500 ####[facility] [address] [place], [address] MCV Normal 81-99 [facility] Comment on above: Result Comment: Canc elled via OM: Order cancelled - Patient discharged Performed By: #### L 100.0100, L500.2500 ####[facility] [address] [place], [address] NEUT% Normal 47-70 [facility] Comment on above: Result Comment: Canc elled via OM: Order cancelled - Patient discharged Performed By: #### L 100.0100, L500.2500 ####[facility] [address] [place], [address] PLT Normal 150-450 [facility] Comment on above: Result Comment: Canc elled via OM: Order cancelled - Patient discharged Performed By: #### L 100.0100, L500.2500 ####[facility] [address] [place], [address] RBC Normal 4.2-5.4 [facility] Comment on above: Result Comment: Canc elled via OM: Order cancelled - Patient discharged Performed By: #### L 100.0100, L500.2500 ####[facility] [address] [place], [address] RDW CV Normal 11.6-14.6 [facility] Comment on above: Result Comment: Canc elled via OM: Order cancelled - Patient discharged Performed By: #### L 100.0100, L500.2500 ####[facility] [address] [place], [address] RDW SD Normal 35.1-43.9 [facility] Comment on above: Result Comment: Canc elled via OM: Order cancelled - Patient discharged Performed By: #### L 100.0100, L500.2500 ####[facility] [address] [place], [address] WBC Normal 4.4-11.0 [facility] Comment on above: Result Comment: Canc elled via OM: Order cancelled - Patient discharged Performed By: #### L 100.0100, L500.2500 ####[facility] [address] [place], [address] Basic Metabolic Profile (BMP )on 01-05-2024 BUN Normal 7-18 [facility] Comment on above: Result Comment: Canc elled via OM: Order cancelled - Patient discharged Performed By: #### L 100.0100, L500.2500 ####[facility] [address] [place], [address] BUN/CRE Normal 10-20 [facility] Comment on above: Result Comment: Canc elled via OM: Order cancelled - Patient discharged Performed By: #### L 100.0100, L500.2500 ####[facility] [address] [place], [address] CA,Total Normal 8.5-10.1 [facility] Comment on above: Result Comment: Canc elled via OM: Order cancelled - Patient discharged Performed By: #### L 100.0100, L500.2500 ####[facility] [address] [place], [address] CL Normal 98-107 [facility] Comment on above: Result Comment: Canc elled via OM: Order cancelled - Patient discharged Performed By: #### L 100.0100, L500.2500 ####[facility] [address] [place], [address] CO2 Normal 21.0-32.0 [facility] Comment on above: Result Comment: Canc elled via OM: Order cancelled - Patient discharged Performed By: #### L 100.0100, L500.2500 ####[facility] [address] [place], [address] CREAT,SERUM Normal 0.55-1.02 [facility] Comment on above: Result Comment: Canc elled via OM: Order cancelled - Patient discharged Performed By: #### L 100.0100, L500.2500 ####[facility] [address] [place], [address] EST GFR Normal >60 [facility] Comment on above: Result Comment: Canc elled via OM: Order cancelled - Patient discharged Performed By: #### L 100.0100, L500.2500 ####[facility] [address] [place], [address] EST GFR - AA Normal >60 [facility] Comment on above: Result Comment: Canc elled via OM: Order cancelled - Patient discharged Performed By: #### L 100.0100, L500.2500 ####[facility] [address] [place], [address] GAP Normal 5-15 [facility] Comment on above: Result Comment: Canc elled via OM: Order cancelled - Patient discharged Performed By: #### L 100.0100, L500.2500 ####[facility] [address] [place], [address] GLU Normal 74-106 [facility] Comment on above: Result Comment: Canc elled via OM: Order cancelled - Patient discharged Performed By: #### L 100.0100, L500.2500 ####[facility] [address] [place], [address] Potassium Normal 3.5-5.1 [facility] Comment on above: Result Comment: Canc elled via OM: Order cancelled - Patient discharged Performed By: #### L 100.0100, L500.2500 ####[facility] [address] [place], [address] Basic Metabolic Profile (BMP) Normal 136-145 [facility] Comment on above: Result Comment: Canc elled via OM: Order cancelled - Patient discharged Performed By: #### L 100.0100, L500.2500 ####[facility] [address] [place], [address] CBC W/Diff, Automatedon 08-0 -2023 Absolute Neut Normal 2.0-7.7 [facility] Comment on above: Result Comment: Canc elled via OM: Order cancelled - Patient discharged Performed By: #### L 100.0100, L500.2500 ####[facility] [address] [place], [address] HCT Normal 37-47 [facility] Comment on above: Result Comment: Canc elled via OM: Order cancelled - Patient discharged Performed By: #### L 100.0100, L500.2500 ####[facility] [address] [place], [address] HGB Normal 12.0-15.0 [facility] Comment on above: Result Comment: Canc elled via OM: Order cancelled - Patient discharged Performed By: #### L 100.0100, L500.2500 ####[facility] [address] [place], [address] MCH Normal 27.0-32.0 [facility] Comment on above: Result Comment: Canc elled via OM: Order cancelled - Patient discharged Performed By: #### L 100.0100, L500.2500 ####[facility] [address] [place], [address] MCHC Normal 32-36 [facility] Comment on above: Result Comment: Canc elled via OM: Order cancelled - Patient discharged Performed By: #### L 100.0100, L500.2500 ####[facility] [address] [place], [address] MCV Normal 81-99 [facility] Comment on above: Result Comment: Canc elled via OM: Order cancelled - Patient discharged Performed By: #### L 100.0100, L500.2500 ####[facility] [address] [place], [address] NEUT% Normal 47-70 [facility] Comment on above: Result Comment: Canc elled via OM: Order cancelled - Patient discharged Performed By: #### L 100.0100, L500.2500 ####[facility] [address] [place], [address] PLT Normal 150-450 [facility] Comment on above: Result Comment: Canc elled via OM: Order cancelled - Patient discharged Performed By: #### L 100.0100, L500.2500 ####[facility] [address] [place], [address] RBC Normal 4.2-5.4 [facility] Comment on above: Result Comment: Canc elled via OM: Order cancelled - Patient discharged Performed By: #### L 100.0100, L500.2500 ####[facility] [address] [place], [address] RDW CV Normal 11.6-14.6 [facility] Comment on above: Result Comment: Canc elled via OM: Order cancelled - Patient discharged Performed By: #### L 100.0100, L500.2500 ####[facility] [address] [place], [address] RDW SD Normal 35.1-43.9 [facility] Comment on above: Result Comment: Canc elled via OM: Order cancelled - Patient discharged Performed By: #### L 100.0100, L500.2500 ####[facility] [address] [place], [address] WBC Normal 4.4-11.0 [facility] Comment on above: Result Comment: Canc elled via OM: Order cancelled - Patient discharged Performed By: #### L 100.0100, L500.2500 ####[facility] [address] [place], [address] Basic Metabolic Profile (BMP )on 01-04-2024 BUN Normal 7-18 [facility] Comment on above: Result Comment: Canc elled via OM: Order cancelled - Patient discharged Performed By: #### L 500.2500, L100.0100 ####[facility] [address] [place], [address] BUN/CRE Normal 10-20 [facility] Comment on above: Result Comment: Canc elled via OM: Order cancelled - Patient discharged Performed By: #### L 500.2500, L100.0100 ####[facility] [address] [place], [address] CA,Total Normal 8.5-10.1 [facility] Comment on above: Result Comment: Canc elled via OM: Order cancelled - Patient discharged Performed By: #### L 500.2500, L100.0100 ####[facility] [address] [place], [address] CL Normal 98-107 [facility] Comment on above: Result Comment: Canc elled via OM: Order cancelled - Patient discharged Performed By: #### L 500.2500, L100.0100 ####[facility] [address] [place], [address] CO2 Normal 21.0-32.0 [facility] Comment on above: Result Comment: Canc elled via OM: Order cancelled - Patient discharged Performed By: #### L 500.2500, L100.0100 ####[facility] [address] [place], [address] CREAT,SERUM Normal 0.55-1.02 [facility] Comment on above: Result Comment: Canc elled via OM: Order cancelled - Patient discharged Performed By: #### L 500.2500, L100.0100 ####[facility] [address] [place], [address] EST GFR Normal >60 [facility] Comment on above: Result Comment: Canc elled via OM: Order cancelled - Patient discharged Performed By: #### L 500.2500, L100.0100 ####[facility] [address] [place], [address] EST GFR - AA Normal >60 [facility] Comment on above: Result Comment: Canc elled via OM: Order cancelled - Patient discharged Performed By: #### L 500.2500, L100.0100 ####[facility] [address] [place], [address] GAP Normal 5-15 [facility] Comment on above: Result Comment: Canc elled via OM: Order cancelled - Patient discharged Performed By: #### L 500.2500, L100.0100 ####[facility] [address] [place], [address] GLU Normal 74-106 [facility] Comment on above: Result Comment: Canc elled via OM: Order cancelled - Patient discharged Performed By: #### L 500.2500, L100.0100 ####[facility] [address] [place], [address] Potassium Normal 3.5-5.1 [facility] Comment on above: Result Comment: Canc elled via OM: Order cancelled - Patient discharged Performed By: #### L 500.2500, L100.0100 ####[facility] [address] [place], [address] Basic Metabolic Profile (BMP) Normal 136-145 [facility] Comment on above: Result Comment: Canc elled via OM: Order cancelled - Patient discharged Performed By: #### L 500.2500, L100.0100 ####[facility] [address] [place], [address] CBC W/Diff, Automatedon 08-0 2-2023 Absolute Neut Normal 2.0-7.7 [facility] Comment on above: Result Comment: Canc elled via OM: Order cancelled - Patient discharged Performed By: #### L 500.2500, L100.0100 ####[facility] [address] [place], [address] HCT Normal 37-47 [facility] Comment on above: Result Comment: Canc elled via OM: Order cancelled - Patient discharged Performed By: #### L 500.2500, L100.0100 ####[facility] [address] [place], [address] HGB Normal 12.0-15.0 [facility] Comment on above: Result Comment: Canc elled via OM: Order cancelled - Patient discharged Performed By: #### L 500.2500, L100.0100 ####[facility] [address] [place], [address] MCH Normal 27.0-32.0 [facility] Comment on above: Result Comment: Canc elled via OM: Order cancelled - Patient discharged Performed By: #### L 500.2500, L100.0100 ####[facility] [address] [place], [address] MCHC Normal 32-36 [facility] Comment on above: Result Comment: Canc elled via OM: Order cancelled - Patient discharged Performed By: #### L 500.2500, L100.0100 ####[facility] [address] [place], [address] MCV Normal 81-99 [facility] Comment on above: Result Comment: Canc elled via OM: Order cancelled - Patient discharged Performed By: #### L 500.2500, L100.0100 ####[facility] [address] [place], [address] NEUT% Normal 47-70 [facility] Comment on above: Result Comment: Canc elled via OM: Order cancelled - Patient discharged Performed By: #### L 500.2500, L100.0100 ####[facility] [address] [place], [address] PLT Normal 150-450 [facility] Comment on above: Result Comment: Canc elled via OM: Order cancelled - Patient discharged Performed By: #### L 500.2500, L100.0100 ####[facility] [address] [place], [address] RBC Normal 4.2-5.4 [facility] Comment on above: Result Comment: Canc elled via OM: Order cancelled - Patient discharged Performed By: #### L 500.2500, L100.0100 ####[facility] [address] [place], [address] RDW CV Normal 11.6-14.6 [facility] Comment on above: Result Comment: Canc elled via OM: Order cancelled - Patient discharged Performed By: #### L 500.2500, L100.0100 ####[facility] [address] [place], [address] RDW SD Normal 35.1-43.9 [facility] Comment on above: Result Comment: Canc elled via OM: Order cancelled - Patient discharged Performed By: #### L 500.2500, L100.0100 ####[facility] [address] [place], [address] WBC Normal 4.4-11.0 [facility] Comment on above: Result Comment: Canc elled via OM: Order cancelled - Patient discharged Performed By: #### L 500.2500, L100.0100 ####[facility] [address] [place], [address] Basic Metabolic Profile (BMP )on 01-03-2024 BUN Normal 7-18 [facility] Comment on above: Result Comment: Canc elled via OM: Order cancelled - Patient discharged Performed By: #### L 500.2500, L100.0100 ####[facility] [address] [place], [address] BUN/CRE Normal 10-20 [facility] Comment on above: Result Comment: Canc elled via OM: Order cancelled - Patient discharged Performed By: #### L 500.2500, L100.0100 ####[facility] [address] [place], [address] CA,Total Normal 8.5-10.1 [facility] Comment on above: Result Comment: Canc elled via OM: Order cancelled - Patient discharged Performed By: #### L 500.2500, L100.0100 ####[facility] [address] [place], [address] CL Normal 98-107 [facility] Comment on above: Result Comment: Canc elled via OM: Order cancelled - Patient discharged Performed By: #### L 500.2500, L100.0100 ####[facility] [address] [place], [address] CO2 Normal 21.0-32.0 [facility] Comment on above: Result Comment: Canc elled via OM: Order cancelled - Patient discharged Performed By: #### L 500.2500, L100.0100 ####[facility] [address] [place], [address] CREAT,SERUM Normal 0.55-1.02 [facility] Comment on above: Result Comment: Canc elled via OM: Order cancelled - Patient discharged Performed By: #### L 500.2500, L100.0100 ####[facility] [address] [place], [address] EST GFR Normal >60 [facility] Comment on above: Result Comment: Canc elled via OM: Order cancelled - Patient discharged Performed By: #### L 500.2500, L100.0100 ####[facility] [address] [place], [address] EST GFR - AA Normal >60 [facility] Comment on above: Result Comment: Canc elled via OM: Order cancelled - Patient discharged Performed By: #### L 500.2500, L100.0100 ####[facility] [address] [place], [address] GAP Normal 5-15 [facility] Comment on above: Result Comment: Canc elled via OM: Order cancelled - Patient discharged Performed By: #### L 500.2500, L100.0100 ####[facility] [address] [place], [address] GLU Normal 74-106 [facility] Comment on above: Result Comment: Canc elled via OM: Order cancelled - Patient discharged Performed By: #### L 500.2500, L100.0100 ####[facility] [address] [place], [address] Potassium Normal 3.5-5.1 [facility] Comment on above: Result Comment: Canc elled via OM: Order cancelled - Patient discharged Performed By: #### L 500.2500, L100.0100 ####[facility] [address] [place], [address] Basic Metabolic Profile (BMP) Normal 136-145 [facility] Comment on above: Result Comment: Canc elled via OM: Order cancelled - Patient discharged Performed By: #### L 500.2500, L100.0100 ####[facility] [address] [place], [address] CBC W/Diff, Automatedon 08-0 -2023 Absolute Neut Normal 2.0-7.7 [facility] Comment on above: Result Comment: Canc elled via OM: Order cancelled - Patient discharged Performed By: #### L 500.2500, L100.0100 ####[facility] [address] [place], [address] HCT Normal 37-47 [facility] Comment on above: Result Comment: Canc elled via OM: Order cancelled - Patient discharged Performed By: #### L 500.2500, L100.0100 ####[facility] [address] [place], [address] HGB Normal 12.0-15.0 [facility] Comment on above: Result Comment: Canc elled via OM: Order cancelled - Patient discharged Performed By: #### L 500.2500, L100.0100 ####[facility] [address] [place], [address] MCH Normal 27.0-32.0 [facility] Comment on above: Result Comment: Canc elled via OM: Order cancelled - Patient discharged Performed By: #### L 500.2500, L100.0100 ####[facility] [address] [place], [address] MCHC Normal 32-36 [facility] Comment on above: Result Comment: Canc elled via OM: Order cancelled - Patient discharged Performed By: #### L 500.2500, L100.0100 ####[facility] [address] [place], [address] MCV Normal 81-99 [facility] Comment on above: Result Comment: Canc elled via OM: Order cancelled - Patient discharged Performed By: #### L 500.2500, L100.0100 ####[facility] [address] [place], [address] NEUT% Normal 47-70 [facility] Comment on above: Result Comment: Canc elled via OM: Order cancelled - Patient discharged Performed By: #### L 500.2500, L100.0100 ####[facility] [address] [place], [address] PLT Normal 150-450 [facility] Comment on above: Result Comment: Canc elled via OM: Order cancelled - Patient discharged Performed By: #### L 500.2500, L100.0100 ####[facility] [address] [place], [address] RBC Normal 4.2-5.4 [facility] Comment on above: Result Comment: Canc elled via OM: Order cancelled - Patient discharged Performed By: #### L 500.2500, L100.0100 ####[facility] [address] [place], [address] RDW CV Normal 11.6-14.6 [facility] Comment on above: Result Comment: Canc elled via OM: Order cancelled - Patient discharged Performed By: #### L 500.2500, L100.0100 ####[facility] [address] [place], [address] RDW SD Normal 35.1-43.9 [facility] Comment on above: Result Comment: Canc elled via OM: Order cancelled - Patient discharged Performed By: #### L 500.2500, L100.0100 ####[facility] [address] [place], [address] WBC Normal 4.4-11.0 [facility] Comment on above: Result Comment: Canc elled via OM: Order cancelled - Patient discharged Performed By: #### L 500.2500, L100.0100 ####[facility] [address] [place], [address] Basic Metabolic Profile (BMP )on 01-02-2024 BUN Normal 7-18 [facility] Comment on above: Result Comment: Canc elled via OM: Order cancelled - Patient discharged Performed By: #### L 100.0100, L500.2500 ####[facility] [address] [place], [address] BUN/CRE Normal 10-20 [facility] Comment on above: Result Comment: Canc elled via OM: Order cancelled - Patient discharged Performed By: #### L 100.0100, L500.2500 ####[facility] [address] [place], [address] CA,Total Normal 8.5-10.1 [facility] Comment on above: Result Comment: Canc elled via OM: Order cancelled - Patient discharged Performed By: #### L 100.0100, L500.2500 ####[facility] [address] [place], [address] CL Normal 98-107 [facility] Comment on above: Result Comment: Canc elled via OM: Order cancelled - Patient discharged Performed By: #### L 100.0100, L500.2500 ####[facility] [address] [place], [address] CO2 Normal 21.0-32.0 [facility] Comment on above: Result Comment: Canc elled via OM: Order cancelled - Patient discharged Performed By: #### L 100.0100, L500.2500 ####[facility] [address] [place], [address] CREAT,SERUM Normal 0.55-1.02 [facility] Comment on above: Result Comment: Canc elled via OM: Order cancelled - Patient discharged Performed By: #### L 100.0100, L500.2500 ####[facility] [address] [place], [address] EST GFR Normal >60 [facility] Comment on above: Result Comment: Canc elled via OM: Order cancelled - Patient discharged Performed By: #### L 100.0100, L500.2500 ####[facility] [address] [place], [address] EST GFR - AA Normal >60 [facility] Comment on above: Result Comment: Canc elled via OM: Order cancelled - Patient discharged Performed By: #### L 100.0100, L500.2500 ####[facility] [address] [place], [address] GAP Normal 5-15 [facility] Comment on above: Result Comment: Canc elled via OM: Order cancelled - Patient discharged Performed By: #### L 100.0100, L500.2500 ####[facility] [address] [place], [address] GLU Normal 74-106 [facility] Comment on above: Result Comment: Canc elled via OM: Order cancelled - Patient discharged Performed By: #### L 100.0100, L500.2500 ####[facility] [address] [place], [address] Potassium Normal 3.5-5.1 [facility] Comment on above: Result Comment: Canc elled via OM: Order cancelled - Patient discharged Performed By: #### L 100.0100, L500.2500 ####[facility] [address] [place], [address] Basic Metabolic Profile (BMP) Normal 136-145 [facility] Comment on above: Result Comment: Canc elled via OM: Order cancelled - Patient discharged Performed By: #### L 100.0100, L500.2500 ####[facility] [address] [place], [address] CBC W/Diff, Automatedon 07-3 Absolute Neut Normal 2.0-7.7 [facility] Comment on above: Result Comment: Canc elled via OM: Order cancelled - Patient discharged Performed By: #### L 100.0100, L500.2500 ####[facility] [address] [place], [address] HCT Normal 37-47 [facility] Comment on above: Result Comment: Canc elled via OM: Order cancelled - Patient discharged Performed By: #### L 100.0100, L500.2500 ####[facility] [address] [place], [address] HGB Normal 12.0-15.0 [facility] Comment on above: Result Comment: Canc elled via OM: Order cancelled - Patient discharged Performed By: #### L 100.0100, L500.2500 ####[facility] [address] [place], [address] MCH Normal 27.0-32.0 [facility] Comment on above: Result Comment: Canc elled via OM: Order cancelled - Patient discharged Performed By: #### L 100.0100, L500.2500 ####[facility] [address] [place], [address] MCHC Normal 32-36 [facility] Comment on above: Result Comment: Canc elled via OM: Order cancelled - Patient discharged Performed By: #### L 100.0100, L500.2500 ####[facility] [address] [place], [address] MCV Normal 81-99 [facility] Comment on above: Result Comment: Canc elled via OM: Order cancelled - Patient discharged Performed By: #### L 100.0100, L500.2500 ####[facility] [address] [place], [address] NEUT% Normal 47-70 [facility] Comment on above: Result Comment: Canc elled via OM: Order cancelled - Patient discharged Performed By: #### L 100.0100, L500.2500 ####[facility] [address] [place], [address] PLT Normal 150-450 [facility] Comment on above: Result Comment: Canc elled via OM: Order cancelled - Patient discharged Performed By: #### L 100.0100, L500.2500 ####[facility] [address] [place], [address] RBC Normal 4.2-5.4 [facility] Comment on above: Result Comment: Canc elled via OM: Order cancelled - Patient discharged Performed By: #### L 100.0100, L500.2500 ####[facility] [address] [place], [address] RDW CV Normal 11.6-14.6 [facility] Comment on above: Result Comment: Canc elled via OM: Order cancelled - Patient discharged Performed By: #### L 100.0100, L500.2500 ####[facility] [address] [place], [address] RDW SD Normal 35.1-43.9 [facility] Comment on above: Result Comment: Canc elled via OM: Order cancelled - Patient discharged Performed By: #### L 100.0100, L500.2500 ####[facility] [address] [place], [address] WBC Normal 4.4-11.0 [facility] Comment on above: Result Comment: Canc elled via OM: Order cancelled - Patient discharged Performed By: #### L 100.0100, L500.2500 ####[facility] [address] [place], [address] Basic Metabolic Profile (BMP )on 01-01-2024 BUN/CRE 16.2 RATIO Normal 10-20 [facility] Comment on above: Performed By: #### L 100.0100, L500.2500 ####[facility] [address] [place], [address] CA,Total 9.4 mg/dL Normal 8.5-10.1 [facility] Comment on above: Performed By: #### L 100.0100, L500.2500 ####[facility] [address] [place], [address] Chloride [Moles/Vol] 109 mmol/L High 98-107 [facility] Comment on above: Performed By: #### L 100.0100, L500.2500 ####[facility] [address] [place], [address] CO2 [Moles/Vol] 26.0 mmol/L Normal 21.0-32.0 [facility] Comment on above: Performed By: #### L 100.0100, L500.2500 ####[facility] [address] [place], [address] Creatinine [Mass/Vol] 1.05 mg/dL High 0.55-1.02 [facility] Comment on above: Result Comment: The validity of the calculated GFR GFRAA in patients over70 years has not been determined. Clinical correlation isessential. Performed By: #### L 100.0100, L500.2500 ####[facility] [address] [place], [address] ECRCL 69.62 ml/min Normal [facility] Comment on above: Performed By: #### L 100.0100, L500.2500 ####[facility] [address] [place], [address] EST GFR - AA 71 mL/min Normal >60 [facility] Comment on above: Result Comment: Afri can [place] GFR Calc Performed By: #### L 100.0100, L500.2500 ####[facility] [address] [place], [address] GAP 5 Normal 5-15 [facility] Comment on above: Performed By: #### L 100.0100, L500.2500 ####[facility] [address] [place], [address] GFR/1.73 sq M.predicted among non-blacks MDRD (S/P/Bld) [Vol rate/Area] 58 mL/min/{1.73_m2} Low >60 [facility] Comment on above: Result Comment: Non- GFR Calc Performed By: #### L 100.0100, L500.2500 ####[facility] [address] [place], [address] Glucose [Mass/Vol] 144 mg/dL High 74-106 [facility] Comment on above: Result Comment: Fast ing Glucose result greater than or equal to 126 mg/dLsuggests DIABETES MELLITUS per A.D.A. criteria. Performed By: #### L 100.0100, L500.2500 ####[facility] [address] [place], [address] Potassium [Moles/Vol] 3.9 mmol/L Normal 3.5-5.1 [facility] Comment on above: Performed By: #### L 100.0100, L500.2500 ####[facility] [address] [place], [address] Sodium [Moles/Vol] 140 mmol/L Normal 136-145 [facility] Comment on above: Performed By: #### L 100.0100, L500.2500 ####[facility] [address] [place], [address] Urea nitrogen [Mass/Vol] 17 mg/dL Normal 7-18 [facility] Comment on above: Performed By: #### L 100.0100, L500.2500 ####[facility] [address] [place], [address] Bedside Glucoseon 01-01-2024 FINGERSTICK GLU 201 mg/dL High [address] [place] [address] Comment on above: Result Comment: TALIA CHAMBERS OF PATIENT CARE PER NURSING PROTOCOL Performed By: #### L 501.080 ####[facility] [address] [place], [address] FINGERSTICK GLU 170 mg/dL High -106 [facility] Comment on above: Result Comment: TALIA GEMENT OF PATIENT CARE PER NURSING PROTOCOL Performed By: #### L 501.080 ####[facility] [address] [place], [address] FINGERSTICK GLU 97 mg/dL Normal 74-106 [facility] Comment on above: Result Comment: TALIA GEMENT OF PATIENT CARE PER NURSING PROTOCOL Performed By: #### L 501.080 ####[facility] [address] [place], [address] CBC W/Diff, Automatedon 07-3 0-4 Absolute Lymph 1.39 X10 3/uL Normal 0.83-4.51 [facility] Comment on above: Performed By: #### L 100.0100, L500.2500 ####[facility] [address] [place], [address] Absolute Neut 3.6 X10 3/uL Normal 2.0-7.7 [facility] Comment on above: Performed By: #### L 100.0100, L500.2500 ####[facility] [address] [place], [address] Basophils/100 WBC (Bld) 0.9 % Normal 0-1 [facility] Comment on above: Performed By: #### L 100.0100, L500.2500 ####[facility] [address] [place], [address] Eosinophils/100 WBC (Bld) 3.2 % Normal 0-5 [facility] Comment on above: Performed By: #### L 100.0100, L500.2500 ####[facility] [address] [place], [address] Erythrocyte distribution width (RBC) [Ratio] 13.2 % Normal 11.6-14.6 [facility] Comment on above: Performed By: #### L 100.0100, L500.2500 ####[facility] [address] [place], [address] Hematocrit (Bld) [Volume fraction] 33.5 % Low 37-47 [facility] Comment on above: Performed By: #### L 100.0100, L500.2500 ####[facility] [address] [place], [address] Hemoglobin (Bld) [Mass/Vol] 10.8 g/dL Low 12.0-15.0 [facility] Comment on above: Performed By: #### L 100.0100, L500.2500 ####[facility] [address] [place], [address] IG% 0.300 Normal 0.0-0.9 [facility] Comment on above: Result Comment: IG% - Immature Granulocytes (promyelocytes, myelocytes andmetamyelocytes) > 1% indicates that a LEFT SHIFT is Present. Performed By: #### L 100.0100, L500.2500 ####[facility] [address] [place], [address] Lymphocytes/100 WBC (Bld) 23.7 % Normal 19-41 [facility] Comment on above: Performed By: #### L 100.0100, L500.2500 ####[facility] [address] [place], [address] MCH (RBC) [Entitic mass] 27.1 pg Normal 27.0-32.0 [facility] Comment on above: Performed By: #### L 100.0100, L500.2500 ####[facility] [address] [place], [address] MCHC (RBC) [Mass/Vol] 32.2 g/dL Normal 32-36 [facility] Comment on above: Performed By: #### L 100.0100, L500.2500 ####[facility] [address] [place], [address] MCV (RBC) [Entitic vol] 84.0 fL Normal 81-99 [facility] Comment on above: Performed By: #### L 100.0100, L500.2500 ####[facility] [address] [place], [address] Monocytes/100 WBC (Bld) 9.9 % Normal 0-10 [facility] Comment on above: Performed By: #### L 100.0100, L500.2500 ####[facility] [address] [place], [address] Neutrophils/100 WBC (Bld) 62.0 % Normal 47-70 [facility] Comment on above: Performed By: #### L 100.0100, L500.2500 ####[facility] [address] [place], [address] Nucleated RBC (Bld) [#/Vol] 0 10*3/uL Normal 0-5 [facility] Comment on above: Performed By: #### L 100.0100, L500.2500 ####[facility] [address] [place], [address] Platelet mean volume (Bld) [Entitic vol] 9.3 fL Normal 6.2-12.0 [facility] Comment on above: Performed By: #### L 100.0100, L500.2500 ####[facility] [address] [place], [address] Platelets (Bld) [#/Vol] 196 10*3/uL Normal 150-450 [facility] Comment on above: Performed By: #### L 100.0100, L500.2500 ####[facility] [address] [place], [address] RBC (Bld) [#/Vol] 3.99 10*6/uL Low 4.2-5.4 [facility] Comment on above: Performed By: #### L 100.0100, L500.2500 ####[facility] [address] [place], [address] RDW SD 40.2 fl Normal 35.1-43.9 [facility] Comment on above: Performed By: #### L 100.0100, L500.2500 ####[facility] [address] [place], [address] WBC (Bld) [#/Vol] 5.9 10*3/uL Normal 4.4-11.0 [facility] Comment on above: Performed By: #### L 100.0100, L500.2500 ####[facility] [address] [place], [address] Discharge Instructionon 12-04 Discharge Instruction Normal [facility] Basic Metabolic Profile (BMP )on 12-31-2023 BUN/CRE 14.0 RATIO Normal 10-20 [facility] Comment on above: Performed By: #### L 100.0100, L500.2500 ####[facility] [address] [place], [address] CA,Total 8.4 mg/dL Low 8.5-10.1 [facility] Comment on above: Performed By: #### L 100.0100, L500.2500 ####[facility] [address] [place], [address] Chloride [Moles/Vol] 106 mmol/L Normal 98-107 [facility] Comment on above: Performed By: #### L 100.0100, L500.2500 ####[facility] [address] [place], [address] CO2 [Moles/Vol] 25.0 mmol/L Normal 21.0-32.0 [facility] Comment on above: Performed By: #### L 100.0100, L500.2500 ####[facility] [address] [place], [address] Creatinine [Mass/Vol] 1.36 mg/dL High 0.55-1.02 [facility] Comment on above: Result Comment: The validity of the calculated GFR GFRAA in patients over70 years has not been determined. Clinical correlation isessential. Performed By: #### L 100.0100, L500.2500 ####[facility] [address] [place], [address] ECRCL 53.66 ml/min Normal [facility] Comment on above: Performed By: #### L 100.0100, L500.2500 ####[facility] [address] [place], [address] EST GFR - AA 52 mL/min Low >60 [facility] Comment on above: Result Comment: Afri can [place] GFR Calc Performed By: #### L 100.0100, L500.2500 ####[facility] [address] [place], [address] GAP 5 Normal 5-15 [facility] Comment on above: Performed By: #### L 100.0100, L500.2500 ####[facility] [address] [place], [address] GFR/1.73 sq M.predicted among non-blacks MDRD (S/P/Bld) [Vol rate/Area] 43 mL/min/{1.73_m2} Low >60 [facility] Comment on above: Result Comment: Non- GFR Calc Performed By: #### L 100.0100, L500.2500 ####[facility] [address] [place], [address] Glucose [Mass/Vol] 138 mg/dL High 74-106 [facility] Comment on above: Result Comment: Fast ing Glucose result greater than or equal to 126 mg/dLsuggests DIABETES MELLITUS per A.D.A. criteria. Performed By: #### L 100.0100, L500.2500 ####[facility] [address] [place], [address] Potassium [Moles/Vol] 3.6 mmol/L Normal 3.5-5.1 [facility] Comment on above: Performed By: #### L 100.0100, L500.2500 ####[facility] [address] [place], [address] Sodium [Moles/Vol] 136 mmol/L Normal 136-145 [facility] Comment on above: Performed By: #### L 100.0100, L500.2500 ####[facility] [address] [place], [address] Urea nitrogen [Mass/Vol] 19 mg/dL High 7-18 [facility] Comment on above: Performed By: #### L 100.0100, L500.2500 ####[facility] [address] [place], [address] Bedside Glucoseon 12-31-2023 FINGERSTICK GLU 155 mg/dL High 74-106 [facility] Comment on above: Result Comment: TALIA GEMENT OF PATIENT CARE PER NURSING PROTOCOL Performed By: #### L 501.080 ####[facility] [address] [place], [address] FINGERSTICK GLU 153 mg/dL High 74-106 [facility] Comment on above: Result Comment: TALIA GEMENT OF PATIENT CARE PER NURSING PROTOCOL Performed By: #### L 501.080 ####[facility] [address] [place], [address] FINGERSTICK GLU 141 mg/dL High 74-106 [facility] Comment on above: Result Comment: TALIA GEMENT OF PATIENT CARE PER NURSING PROTOCOL Performed By: #### L 501.080 ####[facility] [address] [place], [address] CBC W/Diff, Automatedon - Absolute Lymph 1.79 X10 3/uL Normal 0.83-4.51 [facility] Comment on above: Performed By: #### L 100.0100, L500.2500 ####[facility] [address] [place], [address] Absolute Neut 4.2 X10 3/uL Normal 2.0-7.7 [facility] Comment on above: Performed By: #### L 100.0100, L500.2500 ####[facility] [address] [place], [address] Basophils/100 WBC (Bld) 0.9 % Normal 0-1 [facility] Comment on above: Performed By: #### L 100.0100, L500.2500 ####[facility] [address] [place], [address] Eosinophils/100 WBC (Bld) 3.2 % Normal 0-5 [facility] Comment on above: Performed By: #### L 100.0100, L500.2500 ####[facility] [address] [place], [address] Erythrocyte distribution width (RBC) [Ratio] 13.4 % Normal 11.6-14.6 [facility] Comment on above: Performed By: #### L 100.0100, L500.2500 ####[facility] [address] [place], [address] Hematocrit (Bld) [Volume fraction] 33.5 % Low 37-47 [facility] Comment on above: Performed By: #### L 100.0100, L500.2500 ####[facility] [address] [place], [address] Hemoglobin (Bld) [Mass/Vol] 10.8 g/dL Low 12.0-15.0 [facility] Comment on above: Performed By: #### L 100.0100, L500.2500 ####[facility] [address] [place], [address] IG% 0.100 Normal 0.0-0.9 [facility] Comment on above: Result Comment: IG% - Immature Granulocytes (promyelocytes, myelocytes andmetamyelocytes) > 1% indicates that a LEFT SHIFT is Present. Performed By: #### L 100.0100, L500.2500 ####[facility] [address] [place], [address] Lymphocytes/100 WBC (Bld) 26.0 % Normal 19-41 [facility] Comment on above: Performed By: #### L 100.0100, L500.2500 ####[facility] [address] [place], [address] MCH (RBC) [Entitic mass] 26.8 pg Low 27.0-32.0 [facility] Comment on above: Performed By: #### L 100.0100, L500.2500 ####[facility] [address] [place], [address] MCHC (RBC) [Mass/Vol] 32.2 g/dL Normal 32-36 [facility] Comment on above: Performed By: #### L 100.0100, L500.2500 ####[facility] [address] [place], [address] MCV (RBC) [Entitic vol] 83.1 fL Normal 81-99 [facility] Comment on above: Performed By: #### L 100.0100, L500.2500 ####[facility] [address] [place], [address] Monocytes/100 WBC (Bld) 8.9 % Normal 0-10 [facility] Comment on above: Performed By: #### L 100.0100, L500.2500 ####[facility] [address] [place], [address] Neutrophils/100 WBC (Bld) 60.9 % Normal 47-70 [facility] Comment on above: Performed By: #### L 100.0100, L500.2500 ####[facility] [address] [place], [address] Nucleated RBC (Bld) [#/Vol] 0 10*3/uL Normal 0-5 [facility] Comment on above: Performed By: #### L 100.0100, L500.2500 ####[facility] [address] [place], [address] Platelet mean volume (Bld) [Entitic vol] 9.6 fL Normal 6.2-12.0 [facility] Comment on above: Performed By: #### L 100.0100, L500.2500 ####[facility] [address] [place], [address] Platelets (Bld) [#/Vol] 231 10*3/uL Normal 150-450 [facility] Comment on above: Performed By: #### L 100.0100, L500.2500 ####[facility] [address] [place], [address] RBC (Bld) [#/Vol] 4.03 10*6/uL Low 4.2-5.4 [facility] Comment on above: Performed By: #### L 100.0100, L500.2500 ####[facility] [address] [place], [address] RDW SD 40.5 fl Normal 35.1-43.9 [facility] Comment on above: Performed By: #### L 100.0100, L500.2500 ####[facility] [address] [place], [address] WBC (Bld) [#/Vol] 6.9 10*3/uL Normal 4.4-11.0 [facility] Comment on above: Performed By: #### L 100.0100, L500.2500 ####[facility] [address] [place], [address] Bedside Glucoseon 12-30-2023 FINGERSTICK GLU 173 mg/dL High [facility]106 [facility] Comment on above: Result Comment: TALIA GEMENT OF PATIENT CARE PER NURSING PROTOCOL Performed By: #### L 501.080 ####[facility] [address] [place], [address] FINGERSTICK GLU 168 mg/dL High [facility]106 [facility] Comment on above: Result Comment: TALIA GEMENT OF PATIENT CARE PER NURSING PROTOCOL Performed By: #### L 501.080 ####[facility] [address] [place], [address] FINGERSTICK GLU 193 mg/dL High [address] [place] [address] Comment on above: Result Comment: TALIA GEMENT OF PATIENT CARE PER NURSING PROTOCOL Performed By: #### L 501.080 ####[facility] [address] [place], [address] FINGERSTICK GLU 176 mg/dL High [facility]106 [facility] Comment on above: Result Comment: TALIA GEMENT OF PATIENT CARE PER NURSING PROTOCOL Performed By: #### L 501.080 ####[facility] [address] [place], [address] FINGERSTICK GLU 198 mg/dL High [address] [place] [address] Comment on above: Result Comment: TALIA GEMENT OF PATIENT CARE PER NURSING PROTOCOL Performed By: #### L 501.080 ####[facility] [address] [place], [address] CBC W/Diff, Automatedon -2 Absolute Lymph 1.54 X10 3/uL Normal 0.83-4.51 [facility] Comment on above: Performed By: #### L 100.0100, L500.4050 ####[facility] [address] [place], [address] Absolute Neut 5.1 X10 3/uL Normal 2.0-7.7 [facility] Comment on above: Performed By: #### L 100.0100, L500.4050 ####[facility] [address] [place], [address] Basophils/100 WBC (Bld) 0.8 % Normal 0-1 [facility] Comment on above: Performed By: #### L 100.0100, L500.4050 ####[facility] [address] [place], [address] Eosinophils/100 WBC (Bld) 3.1 % Normal 0-5 [facility] Comment on above: Performed By: #### L 100.0100, L500.4050 ####[facility] [address] [place], [address] Erythrocyte distribution width (RBC) [Ratio] 13.3 % Normal 11.6-14.6 [facility] Comment on above: Performed By: #### L 100.0100, L500.4050 ####[facility] [address] [place], [address] Hematocrit (Bld) [Volume fraction] 36.3 % Low 37-47 [facility] Comment on above: Performed By: #### L 100.0100, L500.4050 ####[facility] [address] [place], [address] Hemoglobin (Bld) [Mass/Vol] 11.6 g/dL Low 12.0-15.0 [facility] Comment on above: Performed By: #### L 100.0100, L500.4050 ####[facility] [address] [place], [address] IG% 0.300 Normal 0.0-0.9 [facility] Comment on above: Result Comment: IG% - Immature Granulocytes (promyelocytes, myelocytes andmetamyelocytes) > 1% indicates that a LEFT SHIFT is Present. Performed By: #### L 100.0100, L500.4050 ####[facility] [address] [place], [address] Lymphocytes/100 WBC (Bld) 20.2 % Normal 19-41 [facility] Comment on above: Performed By: #### L 100.0100, L500.4050 ####[facility] [address] [place], [address] MCH (RBC) [Entitic mass] 27.2 pg Normal 27.0-32.0 [facility] Comment on above: Performed By: #### L 100.0100, L500.4050 ####[facility] [address] [place], [address] MCHC (RBC) [Mass/Vol] 32.0 g/dL Normal 32-36 [facility] Comment on above: Performed By: #### L 100.0100, L500.4050 ####[facility] [address] [place], [address] MCV (RBC) [Entitic vol] 85.0 fL Normal 81-99 [facility] Comment on above: Performed By: #### L 100.0100, L500.4050 ####[facility] [address] [place], [address] Monocytes/100 WBC (Bld) 9.2 % Normal 0-10 [facility] Comment on above: Performed By: #### L 100.0100, L500.4050 ####[facility] [address] [place], [address] Neutrophils/100 WBC (Bld) 66.4 % Normal 47-70 [facility] Comment on above: Performed By: #### L 100.0100, L500.4050 ####[facility] [address] [place], [address] Nucleated RBC (Bld) [#/Vol] 0 10*3/uL Normal 0-5 [facility] Comment on above: Performed By: #### L 100.0100, L500.4050 ####[facility] [address] [place], [address] Platelet mean volume (Bld) [Entitic vol] 9.1 fL Normal 6.2-12.0 [facility] Comment on above: Performed By: #### L 100.0100, L500.4050 ####[facility] [address] [place], [address] Platelets (Bld) [#/Vol] 213 10*3/uL Normal 150-450 [facility] Comment on above: Performed By: #### L 100.0100, L500.4050 ####[facility] [address] [place], [address] RBC (Bld) [#/Vol] 4.27 10*6/uL Normal 4.2-5.4 [facility] Comment on above: Performed By: #### L 100.0100, L500.4050 ####[facility] [address] [place], [address] RDW SD 41.4 fl Normal 35.1-43.9 [facility] Comment on above: Performed By: #### L 100.0100, L500.4050 ####[facility] [address] [place], [address] WBC (Bld) [#/Vol] 7.6 10*3/uL Normal 4.4-11.0 [facility] Comment on above: Performed By: #### L 100.0100, L500.4050 ####[facility] [address] [place], [address] Comprehensive Metabolic Prof ilon 12-30-2023 Albumin [Mass/Vol] 2.4 g/dL Low 3.2-5.0 [facility] Comment on above: Performed By: #### L 100.0100, L500.4050 ####[facility] [address] [place], [address] Albumin/Globulin [Mass ratio] 0.6 {ratio} Low 0.9-2.4 [facility] Comment on above: Performed By: #### L 100.0100, L500.4050 ####[facility] [address] [place], [address] ALK P 114 U/L Normal 45-117 [facility] Comment on above: Performed By: #### L 100.0100, L500.4050 ####[facility] [address] [place], [address] ALT [Catalytic activity/Vol] 18 U/L Normal 13-56 [facility] Comment on above: Performed By: #### L 100.0100, L500.4050 ####[facility] [address] [place], [address] AST [Catalytic activity/Vol] 23 U/L Normal 15-37 [facility] Comment on above: Performed By: #### L 100.0100, L500.4050 ####[facility] [address] [place], [address] Bilirubin [Mass/Vol] 1.70 mg/dL High 0.20-1.00 [facility] Comment on above: Result Comment: For patients on eltrombopag therapy, use of Dimension [place] TBIL is not recommended. Performed By: #### L 100.0100, L500.4050 ####[facility] [address] [place], [address] BUN/CRE 17.1 RATIO Normal 10-20 [facility] Comment on above: Performed By: #### L 100.0100, L500.4050 ####[facility] [address] [place], [address] CA,Total 8.6 mg/dL Normal 8.5-10.1 [facility] Comment on above: Performed By: #### L 100.0100, L500.4050 ####[facility] [address] [place], [address] Chloride [Moles/Vol] 108 mmol/L High 98-107 [facility] Comment on above: Performed By: #### L 100.0100, L500.4050 ####[facility] [address] [place], [address] CO2 [Moles/Vol] 25.0 mmol/L Normal 21.0-32.0 [facility] Comment on above: Performed By: #### L 100.0100, L500.4050 ####[facility] [address] [place], [address] Creatinine [Mass/Vol] 0.76 mg/dL Normal 0.55-1.02 [facility] Comment on above: Result Comment: The validity of the calculated GFR GFRAA in patients over70 years has not been determined. Clinical correlation isessential. Performed By: #### L 100.0100, L500.4050 ####[facility] [address] [place], [address] ECRCL 95.80 ml/min Normal [facility] Comment on above: Performed By: #### L 100.0100, L500.4050 ####[facility] [address] [place], [address] EST GFR - AA 103 mL/min Normal >60 [facility] Comment on above: Result Comment: Afri can [place] GFR Calc Performed By: #### L 100.0100, L500.4050 ####[facility] [address] [place], [address] GAP 3 Low 5-15 [facility] Comment on above: Performed By: #### L 100.0100, L500.4050 ####[facility] [address] [place], [address] GFR/1.73 sq M.predicted among non-blacks MDRD (S/P/Bld) [Vol rate/Area] 85 mL/min/{1.73_m2} Normal >60 [facility] Comment on above: Result Comment: Non- GFR Calc Performed By: #### L 100.0100, L500.4050 ####[facility] [address] [place], [address] Globulin (S) [Mass/Vol] 3.9 g/dL Normal 2.2-4.2 [facility] Comment on above: Performed By: #### L 100.0100, L500.4050 ####[facility] [address] [place], [address] Glucose [Mass/Vol] 178 mg/dL High 74-106 [facility] Comment on above: Result Comment: Fast ing Glucose result greater than or equal to 126 mg/dLsuggests DIABETES MELLITUS per A.D.A. criteria. Performed By: #### L 100.0100, L500.4050 ####[facility] [address] [place], [address] Potassium [Moles/Vol] 3.1 mmol/L Low 3.5-5.1 [facility] Comment on above: Performed By: #### L 100.0100, L500.4050 ####[facility] [address] [place], [address] Sodium [Moles/Vol] 136 mmol/L Normal 136-145 [facility] Comment on above: Performed By: #### L 100.0100, L500.4050 ####[facility] [address] [place], [address] T PROT 6.3 g/dL Low 6.4-8.2 [facility] Comment on above: Performed By: #### L 100.0100, L500.4050 ####[facility] [address] [place], [address] Urea nitrogen [Mass/Vol] 13 mg/dL Normal 7-18 [facility] Comment on above: Performed By: #### L 100.0100, L500.4050 ####[facility] [address] [place], [address] Abdomen/Pelvis W IV Cont ONL Yon 12-29-2023 Abdomen/Pelvis W IV Cont ONLY Normal [facility] Alcohol, Blood (Medical)-Ser umon 12-29-2023 SERUM ETOH 4.0 mg/dL Normal [facility] Comment on above: Result Comment: The serum:whole blood ethanol ratio is approximately 1.14and varies slightly with hematocrit.Medical Alcohol reference interval and critical value innon-tolerant individuals; 50 - 100 Impairment 100 Intoxication 100 - 250 Severe Poisoning 250 - 400 Deep/possible fatal coma Performed By: #### L 501.9100 ####[facility] [address] [place], [address] Bedside Glucoseon 12-29-2023 FINGERSTICK GLU 285 mg/dL High 74-106 [facility] Comment on above: Result Comment: TALIA CHAMBERS OF PATIENT CARE PER NURSING PROTOCOL Performed By: #### L 501.080 ####[facility] [address] [place], [address] CBC W/Diff, Automatedon - Absolute Lymph 1.21 X10 3/uL Normal 0.83-4.51 [facility] Comment on above: Performed By: #### L 500.4050, L501.2450, L100.0100 ####[facility] [address] [place], [address] Absolute Neut 7.7 X10 3/uL Normal 2.0-7.7 [facility] Comment on above: Performed By: #### L 500.4050, L501.2450, L100.0100 ####[facility] [address] [place], [address] Basophils/100 WBC (Bld) 0.3 % Normal 0-1 [facility] Comment on above: Performed By: #### L 500.4050, L501.2450, L100.0100 ####[facility] [address] [place], [address] Eosinophils/100 WBC (Bld) 0.7 % Normal 0-5 [facility] Comment on above: Performed By: #### L 500.4050, L501.2450, L100.0100 ####[facility] [address] [place], [address] Erythrocyte distribution width (RBC) [Ratio] 13.3 % Normal 11.6-14.6 [facility] Comment on above: Performed By: #### L 500.4050, L501.2450, L100.0100 ####[facility] [address] [place], [address] Hematocrit (Bld) [Volume fraction] 41.5 % Normal 37-47 [facility] Comment on above: Performed By: #### L 500.4050, L501.2450, L100.0100 ####[facility] [address] [place], [address] Hemoglobin (Bld) [Mass/Vol] 13.9 g/dL Normal 12.0-15.0 [facility] Comment on above: Performed By: #### L 500.4050, L501.2450, L100.0100 ####[facility] [address] [place], [address] IG% 0.200 Normal 0.0-0.9 [facility] Comment on above: Result Comment: IG% - Immature Granulocytes (promyelocytes, myelocytes andmetamyelocytes) > 1% indicates that a LEFT SHIFT is Present. Performed By: #### L 500.4050, L501.2450, L100.0100 ####[facility] [address] [place], [address] Lymphocytes/100 WBC (Bld) 12.6 % Low 19-41 [facility] Comment on above: Performed By: #### L 500.4050, L501.2450, L100.0100 ####[facility] [address] [place], [address] MCH (RBC) [Entitic mass] 27.2 pg Normal 27.0-32.0 [facility] Comment on above: Performed By: #### L 500.4050, L501.2450, L100.0100 ####[facility] [address] [place], [address] MCHC (RBC) [Mass/Vol] 33.5 g/dL Normal 32-36 [facility] Comment on above: Performed By: #### L 500.4050, L501.2450, L100.0100 ####[facility] [address] [place], [address] MCV (RBC) [Entitic vol] 81.2 fL Normal 81-99 [facility] Comment on above: Performed By: #### L 500.4050, L501.2450, L100.0100 ####[facility] [address] [place], [address] Monocytes/100 WBC (Bld) 5.5 % Normal 0-10 [facility] Comment on above: Performed By: #### L 500.4050, L501.2450, L100.0100 ####[facility] [address] [place], [address] Neutrophils/100 WBC (Bld) 80.7 % High 47-70 [facility] Comment on above: Performed By: #### L 500.4050, L501.2450, L100.0100 ####[facility] [address] [place], [address] Nucleated RBC (Bld) [#/Vol] 0 10*3/uL Normal 0-5 [facility] [facility] Comment on above: Performed By: #### L 500.4050, L501.2450, L100.0100 ####[facility] [address] [place], [address] Platelet mean volume (Bld) [Entitic vol] 8.9 fL Normal 6.2-12.0 [facility] Comment on above: Performed By: #### L 500.4050, L501.2450, L100.0100 ####[facility] [address] [place], [address] Platelets (Bld) [#/Vol] 255 10*3/uL Normal 150-450 [facility] Comment on above: Performed By: #### L 500.4050, L501.2450, L100.0100 ####[facility] [address] [place], [address] RBC (Bld) [#/Vol] 5.11 10*6/uL Normal 4.2-5.4 [facility] Comment on above: Performed By: #### L 500.4050, L501.2450, L100.0100 ####[facility] [address] [place], [address] RDW SD 39.4 fl Normal 35.1-43.9 [facility] Comment on above: Performed By: #### L 500.4050, L501.2450, L100.0100 ####[facility] [address] [place], [address] WBC (Bld) [#/Vol] 9.6 10*3/uL Normal 4.4-11.0 [facility] Comment on above: Performed By: #### L 500.4050, L501.2450, L100.0100 ####[facility] [address] [place], [address] Comprehensive Metabolic Prof ilon 12-29-2023 Albumin [Mass/Vol] 3.2 g/dL Normal 3.2-5.0 [facility] Comment on above: Performed By: #### L 500.4050, L501.2450, L100.0100 ####[facility] [address] [place], [address] Albumin/Globulin [Mass ratio] 0.7 {ratio} Low 0.9-2.4 [facility] Comment on above: Performed By: #### L 500.4050, L501.2450, L100.0100 ####[facility] [address] [place], [address] ALK P 142 U/L High 45-117 [facility] Comment on above: Performed By: #### L 500.4050, L501.2450, L100.0100 ####[facility] [address] [place], [address] ALT [Catalytic activity/Vol] 23 U/L Normal 13-56 [facility] Comment on above: Performed By: #### L 500.4050, L501.2450, L100.0100 ####[facility] [address] [place], [address] AST [Catalytic activity/Vol] 25 U/L Normal 15-37 [facility] Comment on above: Performed By: #### L 500.4050, L501.2450, L100.0100 ####[facility] [address] [place], [address] Bilirubin [Mass/Vol] 1.30 mg/dL High 0.20-1.00 [facility] Comment on above: Result Comment: For patients on eltrombopag therapy, use of Dimension [place] TBIL is not recommended. Performed By: #### L 500.4050, L501.2450, L100.0100 ####[facility] [address] [place], [address] BUN/CRE 13.9 RATIO Normal 10-20 [facility] Comment on above: Performed By: #### L 500.4050, L501.2450, L100.0100 ####[facility] [address] [place], [address] CA,Total 10.0 mg/dL Normal 8.5-10.1 [facility] Comment on above: Performed By: #### L 500.4050, L501.2450, L100.0100 ####[facility] [address] [place], [address] Chloride [Moles/Vol] 101 mmol/L Normal 98-107 [facility] Comment on above: Performed By: #### L 500.4050, L501.2450, L100.0100 ####[facility] [address] [place], [address] CO2 [Moles/Vol] 27.0 mmol/L Normal 21.0-32.0 [facility] Comment on above: Performed By: #### L 500.4050, L501.2450, L100.0100 ####[facility] [address] [place], [address] Creatinine [Mass/Vol] 1.01 mg/dL Normal 0.55-1.02 [facility] Comment on above: Result Comment: The validity of the calculated GFR GFRAA in patients over70 years has not been determined. Clinical correlation isessential. Performed By: #### L 500.4050, L501.2450, L100.0100 ####[facility] [address] [place], [address] ECRCL 71.55 ml/min Normal [facility] Comment on above: Performed By: #### L 500.4050, L501.2450, L100.0100 ####[facility] [address] [place], [address] EST GFR - AA 74 mL/min Normal >60 [facility] Comment on above: Result Comment: Afri can Cook Islander GFR Calc Performed By: #### L 500.4050, L501.2450, L100.0100 ####[facility] [address] [place], [address] GAP 7 Normal 5-15 [facility] Comment on above: Performed By: #### L 500.4050, L501.2450, L100.0100 ####[facility] [address] [place], [address] GFR/1.73 sq M.predicted among non-blacks MDRD (S/P/Bld) [Vol rate/Area] 61 mL/min/{1.73_m2} Normal >60 [facility] Comment on above: Result Comment: Non- GFR Calc Performed By: #### L 500.4050, L501.2450, L100.0100 ####[facility] [address] [place], [address] Globulin (S) [Mass/Vol] 4.7 g/dL High 2.2-4.2 [facility] Comment on above: Performed By: #### L 500.4050, L501.2450, L100.0100 ####[facility] [address] [place], [address] Glucose [Mass/Vol] 331 mg/dL High 74-106 [facility] Comment on above: Result Comment: Gluc ose result greater than or equal to 200 mg/dLsuggests DIABETES MELLITUS per A.D.A. criteria. Performed By: #### L 500.4050, L501.2450, L100.0100 ####[facility] [address] [place], [address] Potassium [Moles/Vol] 3.8 mmol/L Normal 3.5-5.1 [facility] Comment on above: Performed By: #### L 500.4050, L501.2450, L100.0100 ####[facility] [address] [place], [address] Sodium [Moles/Vol] 135 mmol/L Low 136-145 [facility] Comment on above: Performed By: #### L 500.4050, L501.2450, L100.0100 ####[facility] [address] [place], [address] T PROT 7.9 g/dL Normal 6.4-8.2 [facility] Comment on above: Performed By: #### L 500.4050, L501.2450, L100.0100 ####[facility] [address] [place], [address] Urea nitrogen [Mass/Vol] 14 mg/dL Normal 7-18 [facility] Comment on above: Performed By: #### L 500.4050, L501.2450, L100.0100 ####[facility] [address] [place], [address] Emergency Department Summary on 12-29-2023 Emergency Department Summary Normal [facility] Femur Min 2 Viewson 12-29-19 24 Femur Min 2 Views Normal [facility] H AND P Exam - Hospitaliston 12-29-2023 H&P Exam - Hospitalist Normal [facility] Lipaseon 12-29-2023 Lipase [Catalytic activity/Vol] 38 U/L Normal 13-75 [facility] Comment on above: Result Comment: Gege edgar note:LIPASE revised reference range effective 22.New Lipase methodology. Expected to produce lower valuesthan the previous assay method.NEW Reference Range: 13 - 75 U/L Performed By: #### L 500.4050, L501.2450, L100.0100 ####[facility] [address] [place], [address] Magnesiumon 12-29-2023 Magnesium [Mass/Vol] 2.0 mg/dL Normal 1.6-2.6 [facility] Comment on above: Order Comment: Comme nts: May add to ED labsComments: may add to ED labs Performed By: #### L 501.2300, L509.7000, L501.5200 ####[facility] [address] [place], [address] Pelvis 1 or 2 Viewson 2023 Pelvis 1 or 2 Views Normal [facility] Phosphoruson 12-29-2023 Phosphate [Mass/Vol] 2.6 mg/dL Normal 2.5-4.9 [facility] Comment on above: Order Comment: Comme nts: May add to ED labsComments: may add to ED labs Performed By: #### L 501.2300, L509.7000, L501.5200 ####[facility] [address] [place], [address] Procalcitoninon 12-29-2023 Procalcitonin 0.23 ng/mL High 0.00-0.09 [facility] Comment on above: Result Comment: A pr ocalcitonin (PCT) level above 2.0 ng/mL on the first day of ICU admission is associated with a high risk for progression to severe sepsis and/or septic shock. A PCT level below 0.5 ng/mL on the first day of ICU admission is associated with a low risk for progression to severe and/or septic shock. Note: Concentrations <0.5 ng/mL do not exclude an infection on account of localized infections (without systemic signs) which can be associated with such low concentrations, or a systemic infection in its initial stages (<6 hours). Furthermore, increased procalcitonin can occur without infection. PCT concentrations between 0.5 and 2.0 ng/mL should be interpreted taking into account the patient's history. It is recommended to retest PCT within 6-24 hours if any concentrations <2 ng/mL are obtained. Performed By: #### L 501.2300, L509.7000, L501.5200 ####[facility] [address] [place], [address] Urinalysis, Completeon 12-28 RBC 10-25 SEEN Normal 0-5 [facility] Comment on above: Order Comment: LUISA CTOR TO SPECIFY Performed By: #### L 400.0001 ####[facility] [address] [place], [address] BACTERIA 0 SEEN Normal None Seen [facility] Comment on above: Order Comment: LUISA CTOR TO SPECIFY Performed By: #### L 400.0001 ####[facility] [address] [place], [address] EPI,SQUAMOUS 0 SEEN Normal 5-10 [facility] Comment on above: Order Comment: LUISA CTOR TO SPECIFY Performed By: #### L 400.0001 ####[facility] [address] [place], [address] Mucus Ql (Urine sed) 0 SEEN Normal [facility] Comment on above: Order Comment: LUISA CTOR TO SPECIFY Performed By: #### L 400.0001 ####[facility] [address] [place], [address] WBC 0 SEEN Normal 0-5 [facility] Comment on above: Order Comment: LUISA CTOR TO SPECIFY Performed By: #### L 400.0001 ####[facility] [address] [place], [address] Urine Drug Screen (VISTA)on 12-29-2023 AMPHETAMINES Negative Normal <1000 ng/mL [facility] Comment on above: Order Comment: Pleas e add to prior urine sample obtained in ED Performed By: #### L 505.5000 ####[facility] [address] [facility] [address] BARBITIURATES Negative Normal < 200 ng/mL [facility] Comment on above: Order Comment: Pleas e add to prior urine sample obtained in ED Performed By: #### L 505.5000 ####[facility] [address] [facility] [address] BENZODIAZIPINE Negative Normal < 200 ng/mL [facility] Comment on above: Order Comment: Pleas e add to prior urine sample obtained in ED Performed By: #### L 505.5000 ####[facility] [address] [place] [address] COCAINE Negative Normal < 300 ng/mL [facility] Comment on above: Order Comment: Pleas e add to prior urine sample obtained in ED Performed By: #### L 505.5000 ####[facility] [address] [place] [address] ECSTACY Negative Normal < 500 ng/mL [facility] Comment on above: Order Comment: Pleas e add to prior urine sample obtained in ED Performed By: #### L 505.5000 ####[facility] [address] [place] [address] METHADONE Negative Normal < 300 ng/mL [facility] Comment on above: Order Comment: Pleas e add to prior urine sample obtained in ED Performed By: #### L 505.5000 ####[facility] [address] [place] [id number] OPIATES Positive Abnormal < 300 ng/mL [facility] Comment on above: Order Comment: Pleas e add to prior urine sample obtained in ED Performed By: #### L 505.5000 ####[facility] [address] [place] [id number] PCP Negative Normal < 25 ng/mL [facility] Comment on above: Order Comment: Pleas e add to prior urine sample obtained in ED Performed By: #### L 505.5000 ####[facility] [address] [facility] [address] THC Positive Abnormal < 50 ng/mL [facility] Comment on above: Order Comment: Pleas e add to prior urine sample obtained in ED Performed By: #### L 505.5000 ####[facility] [address] [facility] [address] VISTA UDS PH 7 Normal [facility] Comment on above: Order Comment: Pleas e add to prior urine sample obtained in ED Performed By: #### L 505.5000 ####[facility] [address] [place] [id number] AMPHETAMINES Normal <1000 ng/mL [facility] Comment on above: Result Comment: Canc elled via OM: Order edited - Discontinuing original order Performed By: #### L 505.5000 ####[facility] [address] [facility] [address] BARBITIURATES Normal < 200 ng/mL [facility] Comment on above: Result Comment: Canc elled via OM: Order edited - Discontinuing original order Performed By: #### L 505.5000 ####[facility] [address] [place] [phone] BENZODIAZIPINE Normal < 200 ng/mL [facility] Comment on above: Result Comment: Canc elled via OM: Order edited - Discontinuing original order Performed By: #### L 505.5000 ####[facility] [address] [place] [address] COCAINE Normal < 300 ng/mL [facility] Comment on above: Result Comment: Canc elled via OM: Order edited - Discontinuing original order Performed By: #### L 505.5000 ####[facility] [address] [place], [address] DRUG CONFIRM Normal [facility] Comment on above: Result Comment: Canc elled via OM: Order edited - Discontinuing original order Performed By: #### L 505.5000 ####[facility] [address] [place], [address] ECSTACY Normal < 500 ng/mL [facility] Comment on above: Result Comment: Canc elled via OM: Order edited - Discontinuing original order Performed By: #### L 505.5000 ####[facility] [address] [place], [address] METHADONE Normal < 300 ng/mL [facility] Comment on above: Result Comment: Canc elled via OM: Order edited - Discontinuing original order Performed By: #### L 505.5000 ####[facility] [address] [place], [address] OPIATES Normal < 300 ng/mL [facility] Comment on above: Result Comment: Canc elled via OM: Order edited - Discontinuing original order Performed By: #### L 505.5000 ####[facility] [address] [place], [address] PCP Normal < 25 ng/mL [facility] Comment on above: Result Comment: Canc elled via OM: Order edited - Discontinuing original order Performed By: #### L 505.5000 ####[facility] [address] [place], [address] THC Normal < 50 ng/mL [facility] Comment on above: Result Comment: Canc elled via OM: Order edited - Discontinuing original order Performed By: #### L 505.5000 ####[facility] [address] [place], [address] VISTA UDS PH Normal [facility] Comment on above: Result Comment: Canc elled via OM: Order edited - Discontinuing original order Performed By: #### L 505.5000 ####[facility] [address] [place], [address] [facility] ----- TRENTON JACKSON ([id number]) 1970 [address] [facility] Date Time Provider Department 11/20/23 STEPHANIE WHITING [facility] During your visit today, we recorded the following information about you: Stephanie De La Cruz 11/20/2023 8:48 AM Signed The patient was discharged from [facility] 10-20-23 with an order to schedule with the [facility]. The Clinic reached out to the patient with no response. Therefore, this is considered a deferral of the Clinic's services at this time. Allergies As of Date: 11/20/2023 Noted Allergy Reaction LATEX 01/18/2011 9 - Itching Comments: Red and dry cracking skin Date Reviewed: 10/19/2023 Reviewed by: Jose Antonio Singh APRN.[facility] - Fully Assessed Reason for Visit: Orders [401] Cmt: [facility] deferral Prescriptions as of 11/20/2023 - baclofen 5 mg tablet Take 5 mg by mouth two times a day. - midodrine (PROAMATINE) 2.5 mg tablet Take 2.5 mg by mouth two times a day. - oxyCODONE IR (ROXICODONE) 5 mg immediate release tablet Take 5 mg by mouth every 8 hours as needed for pain. - acetaminophen (TYLENOL) 325 mg tablet Take 3 tablets by mouth every 6 hours as needed for pain. - polyethylene glycol 3350 17 gram packet Take 1 Packet by mouth once daily. Dissolve dose in 4 - 8 ounces of liquid and take as directed. - senna-docusate (SENNA-S) 8.6-50 mg per tablet Take 1 tablet by mouth two times a day. - nicotine (NICODERM) 7 mg/24 hr Apply 1 Patch as directed once daily. - prochlorperazine (COMPAZINE) 5 mg tablet Take 1 tablet by mouth every 6 hours as needed for nausea/vomiting. - ENTRESTO 24-26 mg tablet Take 1 tablet by mouth two times a day. - spironolactone (ALDACTONE) 50 mg tablet Take 50 mg by mouth once daily. - carvedilol (COREG) 12.5 mg tablet Take 12.5 mg by mouth two times a day. - furosemide (LASIX) 40 mg tablet Take 40 mg by mouth two times a day. - cholecalciferol (VITAMIN D3) 1,000 unit tab tablet Take 1,000 Units by mouth once daily. - clopidogrel (PLAVIX) 75 mg tablet Take 75 mg by mouth once daily. - dapagliflozin propanediol (FARXIGA) 10 mg tablet Take 10 mg by mouth once daily. - pantoprazole DR (PROTONIX) 40 mg tablet Take 40 mg by mouth once daily. - Blood-Glucose Meter (FREESTYLE LITE METER) monitoring kit Check sugars 4 times a day DX E11.8 - gabapentin (NEURONTIN) 300 mg capsule Take 300 mg by mouth three times daily. - escitalopram oxalate (LEXAPRO) 10 mg tablet Take 10 mg by mouth once daily. - nicotine (NICODERM) 7 mg/24 hr Apply 1 Patch as directed every 24 hours. - blood sugar diagnostic (FREESTYLE TEST) test strip Check sugars 4 times/d. Use as directed. - insulin needles, DISPOSABLE, (UNIFINE PENTIPS) 31 gauge x 5/16 ndle Use with insulin injections - ondansetron orally disintegrating (ZOFRAN ODT) 4 mg disintegrating tablet Take 1 tablet by mouth every 6 hours as needed. - nitroglycerin sublingual (NITROQUICK) 0.4 mg SL tablet Dissolve 1 tablet under the tongue every 5 minutes as needed for Chest Pain for up to 3 doses. - VENTOLIN HFA 90 mcg/actuation inhaler Inhale 2 Puffs as instructed every 4 hours as needed for Wheezing/Shortness of Breath. - insulin glargine (LANTUS SOLOSTAR, BASAGLAR KWIKPEN) 100 unit/mL (3 mL) inpn Inject 40 Units subcutaneously twice daily. - Blood Pressure Monitor (BLOOD PRESSURE KIT) kit 1 Each once daily. - atorvastatin (LIPITOR) 80 mg tablet Take 1 tablet by mouth daily at bedtime. - aspirin, enteric coated (ASPIRIN, ENTERIC COATED) 81 mg EC tablet Take 1 tablet by mouth once daily. Meds Comments as of 03/07/2017: Pt held all medications X 4 days per her [id number]-56-5-2017. Problem List As Of Date 11/20/2023 Noted Resolved Abdominal pain, other specified site [R10.9] 10/23/2012 Essential hypertension [I10] 02/20/2017 Pericardial cyst [Q24.8] 02/20/2017 Pericardial effusion [I31.39] 02/20/2017 Depression [F32.A] 02/20/2017 Anxiety [F41.9] 02/20/2017 Right-sided low back pain with right-sided scia*02/20/2017 Type 2 diabetes mellitus with complication, wit*03/07/2017 Chest pain [R07.9] 11/30/2017 Dyslipidemia [E78.5] 11/30/2017 Chest pain at rest [R07.9] 11/30/2017 Cardiomyopathy (HCC) [I42.9] 12/02/2017 Smoker [F17.200] 12/02/2017 Leucocytosis [D72.829] 12/03/2017 Erythrocytosis [D75.1] 12/03/2017 Hypotension [I95.9] 12/03/2017 Unstable angina (HCC) [I20.0] 12/05/2017 Uncontrolled type 2 diabetes mellitus with circ*12/06/2017 Primary hypertension [I10] 12/06/2017 Acute systolic heart failure (HCC) [I50.21] 12/06/2017 Acute diverticulitis [K57.92] 06/08/2018 06/12/2018 Uncontrolled type 2 diabetes mellitus with hype*06/08/2018 Chronic systolic CHF (congestive heart failure)*06/08/2018 Constipation [K59.00] 06/08/2018 06/12/2018 Anxiety and depression [F41.9, F32.A] 06/08/2018 Cannabis use disorder, mild, abuse [F12.10] 07/20/2018 Frailty (more content not included)... Normal [facility] CNPNadine 10-22-2023 [place] Telephone ([facility]) ----- CORRIETRENTON ([id number]) 1970 F [place] Date Time Provider Department 10/22/23 STEPHANIE WHITING [facility] During your visit today, we recorded the following information about you: Stephanie De La Cruz 10/22/2023 9:37 AM Signed Patient was discharged from [facility] 10-20-23 with an order to schedule with the [facility] Clinic. However, the patient was then immediately admitted to a senior care facility. A letter was mailed to the patient asking them to contact the Clinic upon discharge from the facility. Allergies As of Date: 10/22/2023 Noted Allergy Reaction LATEX 01/18/2011 9 - Itching Comments: Red and dry cracking skin Date Reviewed: 10/19/2023 Reviewed by: Jose Antonio Singh APRN.[employer] - Fully Assessed Reason for Visit: Orders [311] Cmt: [facility] order contact/SNF ltr Prescriptions as of 10/22/2023 - baclofen 5 mg tablet Take 5 mg by mouth two times a day. - midodrine (PROAMATINE) 2.5 mg tablet Take 2.5 mg by mouth two times a day. - oxyCODONE IR (ROXICODONE) 5 mg immediate release tablet Take 5 mg by mouth every 8 hours as needed for pain. - acetaminophen (TYLENOL) 325 mg tablet Take 3 tablets by mouth every 6 hours as needed for pain. - polyethylene glycol 3350 17 gram packet Take 1 Packet by mouth once daily. Dissolve dose in 4 - 8 ounces of liquid and take as directed. - senna-docusate (SENNA-S) 8.6-50 mg per tablet Take 1 tablet by mouth two times a day. - nicotine (NICODERM) 7 mg/24 hr Apply 1 Patch as directed once daily. - prochlorperazine (COMPAZINE) 5 mg tablet Take 1 tablet by mouth every 6 hours as needed for nausea/vomiting. - ENTRESTO 24-26 mg tablet Take 1 tablet by mouth two times a day. - spironolactone (ALDACTONE) 50 mg tablet Take 50 mg by mouth once daily. - carvedilol (COREG) 12.5 mg tablet Take 12.5 mg by mouth two times a day. - furosemide (LASIX) 40 mg tablet Take 40 mg by mouth two times a day. - cholecalciferol (VITAMIN D3) 1,000 unit tab tablet Take 1,000 Units by mouth once daily. - clopidogrel (PLAVIX) 75 mg tablet Take 75 mg by mouth once daily. - dapagliflozin propanediol (FARXIGA) 10 mg tablet Take 10 mg by mouth once daily. - pantoprazole DR (PROTONIX) 40 mg tablet Take 40 mg by mouth once daily. - Blood-Glucose Meter (FREESTYLE LITE METER) monitoring kit Check sugars 4 times a day DX E11.8 - gabapentin (NEURONTIN) 300 mg capsule Take 300 mg by mouth three times daily. - escitalopram oxalate (LEXAPRO) 10 mg tablet Take 10 mg by mouth once daily. - nicotine (NICODERM) 7 mg/24 hr Apply 1 Patch as directed every 24 hours. - blood sugar diagnostic (FREESTYLE TEST) test strip Check sugars 4 times/d. Use as directed. - insulin needles, DISPOSABLE, (UNIFINE PENTIPS) 31 gauge x 5/16 ndle Use with insulin injections - ondansetron orally disintegrating (ZOFRAN ODT) 4 mg disintegrating tablet Take 1 tablet by mouth every 6 hours as needed. - nitroglycerin sublingual (NITROQUICK) 0.4 mg SL tablet Dissolve 1 tablet under the tongue every 5 minutes as needed for Chest Pain for up to 3 doses. - VENTOLIN HFA 90 mcg/actuation inhaler Inhale 2 Puffs as instructed every 4 hours as needed for Wheezing/Shortness of Breath. - insulin glargine (LANTUS SOLOSTAR, BASAGLAR KWIKPEN) 100 unit/mL (3 mL) inpn Inject 40 Units subcutaneously twice daily. - Blood Pressure Monitor (BLOOD PRESSURE KIT) kit 1 Each once daily. - atorvastatin (LIPITOR) 80 mg tablet Take 1 tablet by mouth daily at bedtime. - aspirin, enteric coated (ASPIRIN, ENTERIC COATED) 81 mg EC tablet Take 1 tablet by mouth once daily. Meds Comments as of 03/07/2017: Pt held all medications X 4 days per her qlvtzv-81-6-2017. Problem List As Of Date 10/22/2023 Noted Resolved Abdominal pain, other specified site [R10.9] 10/23/2012 Essential hypertension [I10] 02/20/2017 Pericardial cyst [Q24.8] 02/20/2017 Pericardial effusion [I31.39] 02/20/2017 Depression [F32.A] 02/20/2017 Anxiety [F41.9] 02/20/2017 Right-sided low back pain with right-sided scia*02/20/2017 Type 2 diabetes mellitus with complication, wit*03/07/2017 Chest pain [R07.9] 11/30/2017 Dyslipidemia [E78.5] 11/30/2017 Chest pain at rest [R07.9] 11/30/2017 Cardiomyopathy (HCC) [I42.9] 12/02/2017 Smoker [F17.200] 12/02/2017 Leucocytosis [D72.829] 12/03/2017 Erythrocytosis [D75.1] 12/03/2017 Hypotension [I95.9] 12/03/2017 Unstable angina (HCC) [I20.0] 12/05/2017 Uncontrolled type 2 diabetes mellitus with circ*12/06/2017 Primary hypertension [I10] 12/06/2017 Acute systolic heart failure (HCC) [I50.21] 12/06/2017 Acute diverticulitis [K57.92] 06/08/2018 06/12/2018 Uncontrolled type 2 diabetes mellitus with hype*06/08/2018 Chronic systolic CHF (congestive heart failure)*06/08/2018 Constipation [K59.00] 06/08/2018 06/12/2018 Anxiety and depression [F41.9, F32.A] 06/08/2018 Avinash (more content not included)... Normal [facility] Basic metabolic 2000 panelon 10-19-2023 Anion gap [Moles/Vol] 12 mmol/L Normal 9-18 [facility] Comment on above: Order Comment: Speci men Type: BLOOD SPECIMEN Ordering Facility: [facility] Address: [address] [place] [address] Performed By: #### 2 4321-2 #### [facility] CLIA [id number] 1 [place] [address] [place] Calcium [Mass/Vol] 8.9 mg/dL Normal 8.5-10.2 [facility] Comment on above: Order Comment: Speci men Type: BLOOD SPECIMEN Ordering Facility: [facility] Address: [address] [place] [address] Performed By: #### 2 4321-2 #### [facility] CLIA [id number] [address] [place] [address] [place] Chloride [Moles/Vol] 103 mmol/L Normal 97-105 [facility] Comment on above: Order Comment: Speci men Type: BLOOD SPECIMEN Ordering Facility: [facility] Address: [address] [place] [address] Performed By: #### 2 4321-2 #### [facility] CLIA [id number] [address] [place] CO2 [Moles/Vol] 22 mmol/L Normal 22-30 [facility] Comment on above: Order Comment: Speci men Type: BLOOD SPECIMEN Ordering Facility: [facility] Address: [address] [place] [address] Performed By: #### 2 4321-2 #### [facility] CLIA [id number] [address] [place] Creatinine [Mass/Vol] 1.07 mg/dL High 0.58-0.96 [facility] Comment on above: Order Comment: Speci men Type: BLOOD SPECIMEN Ordering Facility: [facility] Address: [address] [place] [address] Performed By: #### 2 4321-2 #### [facility] CLIA [id number] [address] [place] Creatinine and Glomerular filtration rate.predicted panel (S/P/Bld) 63 mL/min/1.73m??? Normal >=60 [facility] Comment on above: Order Comment: Speci men Type: BLOOD SPECIMEN Ordering Facility: [facility] Address: [address] [place] [address] Result Comment: Crissy mated Glomerular Filtration Rate (eGFR) is calculated using the 2020 CKD-EPI creatinine equation. This equation utilizes serum creatinine, sex, and age as parameters. The creatinine assay has traceable calibration to isotope dilution-mass spectrometry. Refer to KDIGO guidelines for clinical interpretation. In patients with unstable renal function, e.g. those with acute kidney injury, the eGFR may not accurately reflect actual GFR. Performed By: #### 2 4321-2 #### [facility] CLIA [id number] [address] [place] [address] [place] Glucose [Mass/Vol] 104 mg/dL High 74-99 [facility] Comment on above: Order Comment: Speci men Type: BLOOD SPECIMEN Ordering Facility: [facility] Address: [address] [place] [address] Result Comment: The [place] Diabetes [employer] (ADA) provides guidance for cutoff values for fasting glucose and random glucose. The ADA defines fasting as no caloric intake for at least 8 hours. Fasting plasma glucose results between 100 to 125 mg/dL indicate increased risk for diabetes (prediabetes). Fasting plasma glucose results greater than or equal to 126 mg/dL meet the criteria for diagnosis of diabetes. In the absence of unequivocal hyperglycemia, results should be confirmed by repeat testing. In a patient with classic symptoms of hyperglycemia or hyperglycemic crisis, random plasma glucose results greater than or equal to 200 mg/dL meet the criteria for diagnosis of diabetes. Reference: Standards of Medical Care in Diabetes 2016, [place] [employer]. Diabetes Care. 2016.39(Suppl 1). Performed By: #### 2 4321-2 #### [facility] CLIA [id number] [address] [place] [address] [place] Potassium [Moles/Vol] 4.2 mmol/L Normal 3.7-5.1 [facility] Comment on above: Order Comment: Radha tony Type: BLOOD SPECIMEN Ordering Facility: [facility] Address: [address] [id number] Performed By: #### 2 4321-2 #### [facility] CLIA [id number] [address] [place] [address] [place] Sodium [Moles/Vol] 137 mmol/L Normal 136-144 [facility] Comment on above: Order Comment: Speci men Type: BLOOD SPECIMEN Ordering Facility: [facility] Address: [address] [id number] Performed By: #### 2 4321-2 #### [facility] CLIA [id number] [address] Urea nitrogen [Mass/Vol] 49 mg/dL High 7-21 [facility] Comment on above: Order Comment: Speci men Type: BLOOD SPECIMEN Ordering Facility: [facility] Address: [address] [place] [address] Performed By: #### 2 4321-2 #### [facility] CLIA [id number] [address] CNDSon 10-19-2023 CNDS HNO ID: [id number] Author: TATIANA RAMSAY MD Service: Hospital Medicine Author Type: Nurse Practitioner Type: Discharge Summary Filed: 10/22/2023 09:18 Note Text: ----- Attestation signed by Tatiana Ramsay MD at 10/22/2023 9:18 AM Attending Note I have reviewed the PA/CUTTING INSPECTOR note. Additions or changes: None Signature: Tatiana Ramsay MD Date: 10/22/2023 Time: 9:18 AM ----- DISCHARGE SUMMARY PATIENT NAME: Trenton Jackson ADMISSION DATE: 10/18/2023 DISCHARGE DATE: 10/19/2023 Attending Physician: Tatiana Ramsay, * Code Status: Prior Highest Readmission Risk Score: 19 The 30 day readmissions risk score is derived from an internally validated risk model which evaluates patient level characteristics, utilization history, medication orders and lab results up until the day of discharge. Patients with a score of 40 or above are considered highest risk for readmission. Specific patient level drivers will be listed at the bottom of the summary. Reason for Hospitalization: low blood pressure Diagnosis: Principal Problem: ROBBIE (acute kidney injury) (HCC) (POA: Yes) Active Problems: Chronic systolic CHF (congestive heart failure) (HCC) (POA: Yes) Presence of surgical incision (POA: Unknown) Pressure injury of coccygeal region, unstageable (HCC) (POA: Unknown) Resolved Problems: * No resolved hospital problems. * Sepsis Ruled Out Hospital Course as Described to the Patient: You were admitted for low blood pressure. You presented to the hospital with the complaints of right hip pain. You had lab work and diagnostic tests in the ED. During your evaluation in the emergency department you were found to be hypotensive. You were given IV fluids and your blood pressure improved. Orthopedics evaluated you in the emergency department and recommended that you follow-up with them outpatient. Lab work revealed an acute kidney injury. You were then admitted to the Rapid Observation for further evaluation and treatment. While here in the ROU, you had IV fluids Repeat lab work showed improvement in the kidney function. You were seen by cardiology and they recommended echocardiogram and resume your entresto. HOLD IF SYSTOLIC BLOOD PRESSURE LESS THAN 105 Your echocardiogram showed a reduced ejection fraction, as previously seen. You were seen by the wound care nurse and they recommended daily dressing changes (see notes below). At this time, we feel it is safe for you to return home. DISCHARGE PLAN: -Discharge back to SNF -Follow up with your Primary Care Provider within 1 week for this visit. If you do not have a primary care provider, you may be seen through internal medicine. Schedule an appointment by calling [phone]. You can also be seen at [facility]. Information for this clinic has been attached to your discharge instructions. -Follow-up with Dr. May with orthopedics in 4 weeks -Follow up with the heart failure clinic. AN APPOINTMENT REQUEST HAS BEEN MADE FOR YOU. IF YOU HAVE NOT HEARD FROM THE SCHEDULERS BY SUNDAY PLEASE CALL [phone] TO CONFIRM YOUR APPOINTMENT DATE/TIME -Please work on maintaining a low fat, low cholesterol diet and engaging in 30 minutes of low impact exercise at least 3 days a week in order to maintain a healthy weight. This will decrease your risks for cardiac disease and improve your overall health and energy levels -If you smoke, please work on quitting. This is one of the best things you can do for your health right now. Smoking causes lung cancer, heart disease and vascular disease. Quitting now can help prevent future health problems. If you need help quitting smoking, you just have to ask. Talk with your doctor and your family and ask for help. Nothing changes until you take that step. But you CAN do it. -Continue all home medications as previously prescribed -Return to the Emergency Department with any change or worsening of symptoms Disposition: DC to SNF Clinical Impression: (N17.9) ROBBIE (acute kidney injury) (HCC) (primary encounter diagnosis) (I95.9) Hypotension, unspecified hypotension type Code Status: Full Medications: See med reconciliation Activity level (from PT recommendations): up with assistance Diet: Diabetic (Carbohydrate Controlled) Wound Care: Yes. See wound care note Patient with right hip incision, C/D/I, Allevyn applied and ordered for protection of fragile skin. Unstageable pressure injury to coccyx, yellow eschar, Allevyn applied and ordered. Pt has good bed mobility. Heels intact, heel offloading ordered. Orders Placed This Encounter DRESSING CARE ([place]) ([place]), Pressure Injury Sacrum Freq: Every 3 Days Order Specific Question: Specify: Answer: coccyx- Cleanse with (more content not included)... Normal [facility] CONSULTon 10-19-2023 CONSULT HNO ID: [id number] Author: LATRICIA HERNANDEZ MD Service: Clinical Cardiology Author Type: Physician Type: Consults Filed: 10/19/2023 12:22 Note Text: CONSULT: CARDIOLOGY SERVICE SERVICE DATE: 10/19/2023 SERVICE TIME: 10:30 AM CONSULTING PHYSICIAN: Latricia Hernandez PCP: N[place]aly [place] [facility] ATTENDING: Tatiana Ramsay, * REASON FOR CONSULT: Cardiology Evaluation Subjective CHIEF COMPLAINT: ROBBIE (acute kidney injury) (HCC) [N17.9] HISTORY OF PRESENT ILLNESS: Ms. Jackson is a 53 year old female who presents for hypotension. Ms. Jackson has history of : -Hypertension -Hyperlipidemia -Psychiatric disorder -Echocardiogram September 2019 revealed : ejection fraction of 30 to 35%, apical akinesis, mild to moderate mitral insufficiency -Left heart catheterization December 04, 2017 revealed : severe diffuse mid LAD disease felt to be amenable to intervention with apical akinesis -Lexiscan Myoview study December 2017 revealed : ejection fraction 21%, large greater than 20% fixed anterior defect, mildly dilated left ventricle, no ischemia Ms. Jackson recently underwent ORIF of her right hip. She did develop postop infection requiring IV antibiotics. She has completed the antibiotics. She is currently residing in a nursing facility. She apparently was having low blood pressures. She was sent to the hospital for evaluation. Cardiology consult was obtained. Ms. Jackson claims she had severe constipation. She first tried MiraLAX and then Colace. That did not work so she tried milk of magnesia. After that did not work she received a suppository. For the next 2 days she had severe diarrhea, nausea, and vomiting. She had little to no oral intake. She does have hip discomforts. She does have some swelling in her right leg since her surgery. She denies chest discomfort, shortness of breath, palpitations, fever, cough, hematochezia, or melena. PAST MEDICAL HISTORY Diagnosis Date Chest pain Diabetes mellitus Diverticula of intestine Hyperglycemia 09/23/2018 Hyperlipemia Hypertension Incisional hernia Psychiatric disorder PAST SURGICAL HISTORY Procedure Laterality Date APPENDECTOMY 2007 DELIVERY ONLY , low transverse COLONOSCOPY 2001? DILATION AND CURETTAGE DXAND/THER NONOBSTETRIC 10/17/12 ESOPHAGOGASTRODUODENOSCOP Y TRANSORAL DIAGNOSTIC 02/01/2016 EGD HEART CATHETERIZATION IMPLANT MESH OPN HERNIA RPR/DEBRIDEMENT CLOSURE 10/16/13 LAPAROSCOPY SURG CHOLECYSTECTOMY 1998 Cholecystectomy, lap LIG/TRNSXJ FLP TUBE ABDL/VAG APPR UNI/BI Tubal ligation PAST SURGICAL HISTORY OF 2009 cysy removed from neck REPAIR FIRST ABDOMINAL WALL HERNIA 10/16/13 SIGMOIDOSCOPY FLX DX W/COLLJ SPEC BR/WA IF PFRMD 02/01/2016 Sigmoidoscopy, flexible FAMILY HISTORY Problem Relation Age of Onset Thyroid Mother Graves Diabetes Mother Hypertension Mother Diabetes Maternal Grandmother Diabetes Maternal Uncle Diabetes Maternal Aunt Social History Tobacco Use Smoking status: Every Day Packs/day: 0.50 Years: 27.00 Additional pack years: 0.00 Total pack years: 13.50 Types: Cigarettes Smokeless tobacco: Never Substance Use Topics Alcohol use: No Drug use: Yes Types: Marijuana Comment: ocassionally Prior to Admission Medications Prescriptions Last Dose Informant Patient Reported? Taking? Blood Pressure Monitor (BLOOD PRESSURE KIT) kit No No Si Each once daily. Blood-Glucose Meter (FREESTYLE LITE METER) monitoring kit No Yes Sig: Check sugars 4 times a day DX E11.8 ENTRESTO 24-26 mg tablet Yes Yes Sig: Take 1 tablet by mouth two times a day. VENTOLIN HFA 90 mcg/actuation inhaler No No Sig: Inhale 2 Puffs as instructed every 4 hours as needed for Wheezing/Shortness of Breath. acetaminophen (TYLENOL) 325 mg tablet No Yes Sig: Take 3 tablets by mouth every 6 hours as needed for pain. aspirin, enteric coated (ASPIRIN, ENTERIC COATED) 81 mg EC tablet No Yes Sig: Take 1 tablet by mouth once daily. atorvastatin (LIPITOR) 80 mg tablet No Yes Sig: Take 1 tablet by mouth daily at bedtime. baclofen 5 mg tablet Yes Yes Sig: Take 5 mg by mouth two times a day. blood sugar diagnostic (FREESTYLE TEST) test strip No Yes Sig: Check sugars 4 times/d. Use as directed. carvedilol (COREG) 12.5 mg tablet Yes Yes Sig: Take 12.5 mg by mouth two times a day. cholecalciferol (VITAMIN D3) 1,000 unit tab tablet Yes Yes Sig: Take 1,000 Units by mouth once daily. clopidogrel (PLAVIX) 75 mg tablet Yes Yes Sig: Take 75 mg by mouth once daily. dapagliflozin propanediol (FARXIGA) 10 mg tablet Yes No Sig: Take 10 mg by mouth once daily. escitalopram oxalate (LEXAPRO) 10 mg tablet OTHER Yes No Sig: Take 10 mg by mouth once daily. furosemide (LASIX) 40 mg tablet Yes Yes Sig: Take 40 mg by mouth two times a day. gabapentin (NEURONTIN) 300 mg capsule Yes Yes Sig: Take 300 mg by mouth three times daily. insulin (more content not included)... Normal [facility] CONSULT PROGon 10-19-2023 CONSULT PROG HNO ID: [id number] Author: DARLYN CANTOR APRN.CUSTOMER DATA TECHNICIAN Service: Wound/Ostomy Author Type: Nurse Practitioner Type: Consult Progress Note Filed: 10/19/2023 11:27 Note Text: WOUND CARE SERVICE CONSULT WORM RAISER NOTE SERVICE DATE: 10/19/2023 SERVICE TIME: 849 REASON FOR CONSULT: Consultation requested by Juancarlos Graham APRN.[place] for an opinion regarding wound on coccyx. My final recommendations will be communicated back to the requesting physician by way of shared Medical record or letter to requesting physician via US mail. CHIEF COMPLAINT: wound on coccyx. Subjective HISTORY OF PRESENT ILLNESS: Ms. Jackson is a 53 year old female who is seen today with Emma Parikh Wound/director occupational, and presented to hospital with complaints of right hip pain. PMH chest pain, DM, HTN. PERTINENT REVIEW OF SYSTEMS: GENERAL: denies fever PAIN ASSESSMENT: endorses 8/ pain to right hip SKIN: wound on coccyx RESPIRATORY: denies SOB GI/: endorses nausea PAST MEDICAL HISTORY Diagnosis Date Chest pain Diabetes mellitus Diverticula of intestine Hyperglycemia 09/23/2018 Hyperlipemia Hypertension Incisional hernia Psychiatric disorder PAST SURGICAL HISTORY Procedure Laterality Date APPENDECTOMY 2008 DELIVERY ONLY , low transverse COLONOSCOPY 2001? DILATION AND CURETTAGE DXAND/THER NONOBSTETRIC 10/17/12 ESOPHAGOGASTRODUODENOSCOP Y TRANSORAL DIAGNOSTIC 02/01/2016 EGD HEART CATHETERIZATION IMPLANT MESH OPN HERNIA RPR/DEBRIDEMENT CLOSURE 10/16/13 LAPAROSCOPY SURG CHOLECYSTECTOMY 1998 Cholecystectomy, lap LIG/TRNSXJ FLP TUBE ABDL/VAG APPR UNI/BI Tubal ligation PAST SURGICAL HISTORY OF 2009 cysy removed from neck REPAIR FIRST ABDOMINAL WALL HERNIA 10/16/13 SIGMOIDOSCOPY FLX DX W/COLLJ SPEC BR/WA IF PFRMD 02/01/2016 Sigmoidoscopy, flexible Social History Tobacco Use Smoking status: Every Day Packs/day: 0.50 Years: 27.00 Additional pack years: 0.00 Total pack years: 13.50 Types: Cigarettes Smokeless tobacco: Never Substance Use Topics Alcohol use: No Drug use: Yes Types: Marijuana Comment: ocassionally FAMILY HISTORY Problem Relation Age of Onset Thyroid Mother Graves Diabetes Mother Hypertension Mother Diabetes Maternal Grandmother Diabetes Maternal Uncle Diabetes Maternal Aunt MEDICATIONS: Current Facility-Administered Medications Medication Dose Route Frequency NaCl 0.9% iv flush bag 20 mL INTRAVENOUS PRN NaCl 0.9% iv infusion 100 mL/hr INTRAVENOUS CONTINUOUS carvedilol 12.5 mg tab(s) (COREG) 12.5 mg ORAL BID w MEALS sacubitril-valsartan 24-26 mg 1 tablet (ENTRESTO) 1 tablet ORAL BID gabapentin 300 mg cap(s) (NEURONTIN) 300 mg ORAL TID insulin glargine 20 Units pen (long acting) 20 Units SUBCUTANEOUS BID aspirin, enteric coated 81 mg tab(s) 81 mg ORAL DAILY clopidogrel 75 mg tab(s) (PLAVIX) 75 [address]ILY [address]op[address]ole [address] 40 mg tab(s) (PROTONIX) 40 mg ORAL DAILY (6 AM) escitalopram oxalate 10 mg tab(s) (LEXAPRO) 10 mg ORAL DAILY nitroglycerin sublingual 0.4 mg tab(s) (NITROQUICK) 0.4 mg SUBLINGUAL q 5 MIN PRN senna-docusate 8.6-50 mg 1 tablet (SENNA-S) 1 tablet ORAL BID polyethylene glycol 3350 17 g packet 17 g ORAL DAILY dextrose 15 gram/32 mL 15 g (TRUEPLUS) 15 g ORAL PRN Or glucagon 1 mg injection 1 mg INTRAMUSCULAR PRN Or dextrose 10% iv bolus 12.5 g INTRAVENOUS PRN midodrine 2.5 mg tab(s) (PROAMATINE) 2.5 mg ORAL BID baclofen 5 mg tab(s) 5 mg ORAL TID PRN oxyCODONE IR 5 mg tab(s) (ROXICODONE) 5 mg ORAL q 6 H PRN acetaminophen 650 mg tab(s) (TYLENOL) 650 mg ORAL q 6 H PRN ondansetron orally disintegrating 4 mg tab(s) (ZOFRAN ODT) 4 mg ORAL q 6 H PRN sodium chloride 0.9 % (flush) 2-10 mL (BD POSIFLUSH) 2-10 mL INTRAVENOUS DIRECTED PRN ALLERGIES Allergen Reactions Latex Itching Red and dry cracking skin Objective PHYSICAL EXAM: BP 97/60 Pulse 90 Temp 36.6 ?C (97.8 ?F) (Oral) Resp 18 Ht 170.2 cm (5' 7) Wt 77 kg (169 lb 12.1 oz) LMP 08/20/2015 SpO2 98% BMI 26.59 kg/m? General appearance: A/O female resting in bed, pleasant and cooperative. Respiratory: even and unlabored. Cardiovascular: pedal pulses palpable bilaterally. Extremities: heels intact. Right hip healed incision. Integumentary: unstageable pressure injury to coccyx. DATA Labs: albumin 3.4 Presenting wound information: Wound 09/03/23 Incision Leg Anterior;Proximal;Right;U pper (Active) Assessments 10/19/2023 8:56 AM Wound Image Site Assessment Clean;Dry;Intact Isabelle-Wound Assessment Intact;Scarred Shape linear Wound Length (cm) 1.5 cm Closure Approximated (healed) Drainage Amount None Odor None Treatments Cleansed Dressing Foam- Adhesive Dressing Changed New Dressing Status Clean;Dry;Intact Active Orders Date Order Priority Status Authorizing Provider 10/19/23 1102 DRESSING CARE ([place]IFY) ([place]), Incision Anterior;Proximal;Right;U pper Leg Routine Active Darlyn Cantor, WORM RAISER.CUSTOMER DATA TECHNICIAN - Sp (more content not included)... Normal [facility] ECHOon 10-19-2023 Echocardiography Echocardiography Rep ort: Transthoracic Echo [facility] Date of service: 10/19/2023 10:23:25 [facility] Ordering physician: JOSE ANTONIO SINGH Indication: Limited for pericardial effusion Technologist: Mode Galvez [facility] Interpreting physician: Colin Drake MD PATIENT: Name: MRS. TRENTON JACKSON : 1970 Age: 53 years Gender: F History of hypertension and diabetes mellitus. Primary rhythm: sinus. Height: 170.20 cm BSA: 1.91 m Weight: 77.00 kg BMI: 26.6 kg/m Heart rate 92 bpm Blood pressure 97/60 mmHg Technically difficult exam due to body habitus. Color Doppler was utilized to interrogate the cardiac valves assessed and spectral Doppler was utilized to determine the flow velocities and pressure gradients reported in this exam. MEASUREMENTS: Value Indexed Normal Max aortic dimension 2.7 cm Ao < 3.8 LV ID (diastole) 5.3 cm (2D) 2.75 cm/m LV ID (systole) 4.6 cm (2D) 2.40 cm/m IVS, leaflet tips 1.2 cm (2D) Posterior wall thickness 1.2 cm (2D) Left ventricular mass 252 g (2D) 132 g/m LV stroke volume 45 ml (2D biplane) LV end diastolic volume 152 ml (2D biplane) 79.6 ml/m 29<=EDVi<62 LV end systolic volume 107 ml (2D biplane) 56.1 ml/m Ejection Fraction 30 % (2D biplane) EF > 54 FINDINGS: LEFT VENTRICLE The left ventricle is moderately dilated. There is mild concentric left ventricular hypertrophy. Left ventricular systolic function is severely decreased regionally. Left ventricular diastolic function was not evaluated. Definity contrast used for endocardial border detection. Wall Motion: The entire apex is akinetic. The anterior septum, inferior wall, mid inferolateral segment, mid anterolateral segment, mid inferoseptal segment, mid anterior segment, and basal inferoseptal segment are severely hypokinetic. All remaining scored segments are normal. RIGHT VENTRICLE The right ventricle is normal in size. Right ventricular systolic function is normal. RV systolic tissue Doppler velocity is 11.0 cm/s. Estimated right ventricular systolic pressure is not reported due to an insufficient tricuspid regurgitation signal. Estimated right atrial pressure is 3 mmHg based on IVC assessment. LEFT ATRIUM The left atrium is unseen or not interrogated. RIGHT ATRIUM The right atrium is unseen or not interrogated. Inferior Vena Cava: The inferior vena cava appears normal measuring 1.7 cm. The vessel decreases greater than 50 percent with inspiration. MITRAL VALVE There is trace (trace - 1+) mitral valve regurgitation. There is mild thickening. TRICUSPID VALVE The tricuspid valve leaflets are structurally normal. There is trace tricuspid valve regurgitation. AORTIC VALVE The aortic valve was not seen or not interrogated. Morphology of aortic valve not well visualized but appears likely trileflet. There is no significant aortic valve stenosis based on visual evaluation. There is no aortic valve regurgitation. There is mild thickening. PULMONIC VALVE The pulmonic valve was not seen or not interrogated. AORTA The visualized aorta is normal in size. Measurements - Mid ascending aorta 2.7 cm. PULMONARY ARTERIES The pulmonary arteries are unseen or not interrogated. PERICARDIUM There is no pericardial effusion. CONCLUSIONS: - Technically difficult exam due to body habitus. - Exam indication: Limited for preicardial effusion - The left ventricle is moderately dilated. There is mild concentric left ventricular hypertrophy. Left ventricular systolic function is severely decreased. Regional wall motion abnormalities as per above with EF = 30 5% (2D biplane) Definity contrast used for endocardial border detection. Left ventricular diastolic function was not evaluated. - No evidence of LV apical thrombus by Definity contrast evaluation. - The right ventricle is normal in size. Right ventricular systolic function is normal. - No significant pericardial effusion noted. - Exam was compared with the prior CC echocardiographic exam performed on 09/25/2018. No evidence of LV apical thrombus noted on current study as compared to report of prior study. * * * Final * * * CC [employer] Image : [id number] Normal [facility] ED NOTEon 10-19-2023 ED NOTE HNO ID: [id number] Author: JIMY CHING RN Service: Emergency Medicine Author Type: Registered Nurse Type: ED Notes Filed: 10/19/2023 00:29 Note Text: . Normal [facility] ED NOTE HNO ID: [id number] Author: JIMY CHING RN Service: Emergency Medicine Author Type: Registered Nurse Type: ED Notes Filed: 10/19/2023 00:30 Note Text: Report to floor attempted RN not available to take report Normal [facility] Hepatic function 2000 panelo n 10-19-2023 Albumin [Mass/Vol] 3.4 g/dL Low 3.9-4.9 [facility] Comment on above: Order Comment: Radha tony Type: BLOOD SPECIMEN Ordering Facility: [facility] Address: [address] [place] [address] Performed By: #### 2 4321-2 #### [facility] CLIA [id number] [address] STATES OF [facility] ALP [Catalytic activity/Vol] 134 U/L High 34-123 [facility] Comment on above: Order Comment: Radha tony Type: BLOOD SPECIMEN Ordering Facility: [facility] Address: [address] [place] [address] Performed By: #### 2 4321-2 #### [facility] CLIA [id number] [address] OF [facility] ALT With P-5'-P [Catalytic activity/Vol] 17 U/L Normal 7-38 [facility] Comment on above: Order Comment: Speci men Type: BLOOD SPECIMEN Ordering Facility: [facility] Address: [address] [place] [address] Performed By: #### 2 4321-2 #### [facility] CLIA [id number] [address] OF [facility] AST With P-5'-P [Catalytic activity/Vol] 19 U/L Normal 13-35 [facility] Comment on above: Order Comment: Speci men Type: BLOOD SPECIMEN Ordering Facility: [facility] Address: [address] [place] [address] Performed By: #### 2 4321-2 #### [facility] CLIA [id number] [address] [place] Bilirubin [Mass/Vol] 0.5 mg/dL Normal 0.2-1.3 [facility] Comment on above: Order Comment: Speci men Type: BLOOD SPECIMEN Ordering Facility: [facility] Address: [address] [place] [address] Performed By: #### 2 4321-2 #### [facility] CLIA [id number] [address] Bilirubin.conjugated [Mass/Vol] mg/dL Normal <0.2 [facility] Comment on above: Order Comment: Speci men Type: BLOOD SPECIMEN Ordering Facility: [facility] Address: [address] [place] [address] Performed By: #### 2 4321-2 #### [facility] CLIA [id number] [address] [place] Protein [Mass/Vol] 6.7 g/dL Normal 6.3-8.0 [facility] Comment on above: Order Comment: Speci men Type: BLOOD SPECIMEN Ordering Facility: [facility] Address: [address] [place] [address] Performed By: #### 2 4321-2 #### [facility] CLIA [id number] [address] OF [facility] CBC W Auto Differential pane l (Bld)on 10-18-2023 Basophils (Bld) [#/Vol] 0.05 10*3/uL Normal <0.11 [facility] Comment on above: Order Comment: Speci men Type: BLOOD SPECIMEN Ordering Facility: [facility] Address: [address] [place] [address] Performed By: #### 2 4321-2 #### [facility] CLIA [id number] [address] Basophils/100 WBC (Bld) 0.6 % Normal [facility] Comment on above: Order Comment: Speci men Type: BLOOD SPECIMEN Ordering Facility: [facility] Address: [address] [place] [address] Performed By: #### 2 4321-2 #### [facility] CLIA [id number] [address] Differential cell count method Nom (Bld) Auto Normal [facility] Comment on above: Order Comment: Speci men Type: BLOOD SPECIMEN Ordering Facility: [facility] Address: [address] [place] [address] Performed By: #### 2 4321-2 #### [facility] CLIA [id number] [address] [place] Eosinophils (Bld) [#/Vol] 0.10 10*3/uL Normal <0.46 [facility] Comment on above: Order Comment: Speci men Type: BLOOD SPECIMEN Ordering Facility: [facility] Address: [address] [place] [address] Performed By: #### 2 4321-2 #### [facility] CLIA [id number] [address] Eosinophils/100 WBC (Bld) 1.2 % Normal [facility] Comment on above: Order Comment: Speci men Type: BLOOD SPECIMEN Ordering Facility: [facility] Address: [address] [place] [address] Performed By: #### 2 4321-2 #### [facility] CLIA [id number] [address] [place] Erythrocyte distribution width (RBC) [Ratio] 16.2 % High 11.5-15.0 [facility] Comment on above: Order Comment: Speci men Type: BLOOD SPECIMEN Ordering Facility: [facility] Address: [address] [place] [address] Performed By: #### 2 4321-2 #### [facility] CLIA [id number] [address] [place] Hematocrit (Bld) [Volume fraction] 36.5 % Normal 36.0-46.0 [facility] Comment on above: Order Comment: Speci men Type: BLOOD SPECIMEN Ordering Facility: [facility] Address: [address] [place] [address] Performed By: #### 2 4321-2 #### [facility] CLIA [id number] [address] [place] Hemoglobin (Bld) [Mass/Vol] 11.6 g/dL Normal 11.5-15.5 [facility] Comment on above: Order Comment: Speci men Type: BLOOD SPECIMEN Ordering Facility: [facility] Address: [address] [place] [address] Performed By: #### 2 4321-2 #### [facility] CLIA [id number] [address] [place] Immature granulocytes (Bld) [#/Vol] 0.03 10*3/uL Normal <0.10 [facility] Comment on above: Order Comment: Speci men Type: BLOOD SPECIMEN Ordering Facility: [facility] Address: [address] [place] [address] Performed By: #### 2 4321-2 #### [facility] CLIA [id number] [address] Immature granulocytes/100 WBC (Bld) 0.4 % Normal [facility] Comment on above: Order Comment: Speci men Type: BLOOD SPECIMEN Ordering Facility: [facility] Address: [address] [place] [address] Performed By: #### 2 4321-2 #### [facility] CLIA [id number] [address] [place] Lymphocytes (Bld) [#/Vol] 1.82 10*3/uL Normal 1.00-4.00 [facility] Comment on above: Order Comment: Speci men Type: BLOOD SPECIMEN Ordering Facility: [facility] Address: [address] [place] [address] Performed By: #### 2 4321-2 #### [facility] CLIA [id number] [address] Lymphocytes/100 WBC (Bld) 22.3 % Normal [facility] Comment on above: Order Comment: Speci men Type: BLOOD SPECIMEN Ordering Facility: [facility] Address: [address] [place] [address] Performed By: #### 2 4321-2 #### [facility] CLIA [id number] [address] MCH (RBC) [Entitic mass] 27.3 pg Normal 26.0-34.0 [facility] Comment on above: Order Comment: Speci men Type: BLOOD SPECIMEN Ordering Facility: [facility] Address: [address] [place] [address] Performed By: #### 2 4321-2 #### [facility] CLIA [id number] [address] OF [facility] MCHC (RBC) [Mass/Vol] 31.8 g/dL Normal 30.5-36.0 [facility] Comment on above: Order Comment: Speci men Type: BLOOD SPECIMEN Ordering Facility: [facility] Address: [address] [place] [address] Performed By: #### 2 4321-2 #### [facility] CLIA [id number] [address] OF [facility] MCV (RBC) [Entitic vol] 85.9 fL Normal 80.0-100.0 [facility] Comment on above: Order Comment: Speci men Type: BLOOD SPECIMEN Ordering Facility: [facility] Address: [address] [place] [address] Performed By: #### 2 4321-2 #### [facility] CLIA [id number] [address] [place] Monocytes (Bld) [#/Vol] 0.78 10*3/uL Normal <0.87 [facility] Comment on above: Order Comment: Speci men Type: BLOOD SPECIMEN Ordering Facility: [facility] Address: [address] [place] [address] Performed By: #### 2 1-2 #### [facility] CLIA [id number] [address] Monocytes/100 WBC (Bld) 9.6 % Normal [facility] Comment on above: Order Comment: Speci men Type: BLOOD SPECIMEN Ordering Facility: [facility] Address: [address] [place] [address] Performed By: #### 2 1-2 #### [facility] CLIA [id number] [address] [place] Neutrophils (Bld) [#/Vol] 5.38 10*3/uL Normal 1.45-7.50 [facility] Comment on above: Order Comment: Speci men Type: BLOOD SPECIMEN Ordering Facility: [facility] Address: [address] [place] [address] Performed By: #### 2 1-2 #### [facility] CLIA [id number] [address] [place] Neutrophils/100 WBC (Bld) 65.9 % Normal [facility] Comment on above: Order Comment: Speci men Type: BLOOD SPECIMEN Ordering Facility: [facility] Address: [facility] [place] [address] Performed By: #### 2 1-2 #### [facility] CLIA [id number] [address] [place] Nucleated RBC (Bld) [#/Vol] 10*3/uL Normal <0.01 [facility] Comment on above: Order Comment: Speci men Type: BLOOD SPECIMEN Ordering Facility: [facility] Address: [address] [place] [address] Performed By: #### 2 4321-2 #### [facility] CLIA [id number] [address] OF [facility] Nucleated RBC/100 WBC (Bld) [Ratio] 0.0 /100 WBC Normal [facility] Comment on above: Order Comment: Speci men Type: BLOOD SPECIMEN Ordering Facility: [facility] Address: [address] [place] [address] Performed By: #### 2 4321-2 #### [facility] CLIA [id number] [address] [place] Platelet mean volume (Bld) [Entitic vol] 9.1 fL Normal 9.0-12.7 [facility] Comment on above: Order Comment: Speci men Type: BLOOD SPECIMEN Ordering Facility: [facility] Address: [address] [place] [address] Performed By: #### 2 4321-2 #### [facility] CLIA [id number] [address] [place] Platelets (Bld) [#/Vol] 242 10*3/uL Normal 150-400 [facility] Comment on above: Order Comment: Speci men Type: BLOOD SPECIMEN Ordering Facility: [facility] Address: [address] [place] [address] Performed By: #### 2 4321-2 #### [facility] CLIA [id number] [address] [place] RBC (Bld) [#/Vol] 4.25 10*6/uL Normal 3.90-5.20 [facility] Comment on above: Order Comment: Speci men Type: BLOOD SPECIMEN Ordering Facility: [facility] Address: [address] [place] [address] Performed By: #### 2 4321-2 #### [facility] CLIA [id number] 1 [place] [id number] [place] WBC (Bld) [#/Vol] 8.16 10*3/uL Normal 3.70-11.00 [facility] Comment on above: Order Comment: Speci men Type: BLOOD SPECIMEN Ordering Facility: [facility] Address: [facility] [place] [address] Performed By: #### 2 4321-2 #### [facility] CLIA [id number] 1 [place] [id number] [facility] [place] [facility]) ----- TRENTON JACKSON ([id number]) 1970 [facility] Date Time [facility] During your visit today, we recorded the following information about you: [facility] Genetic Counselor Ethel Shah 10/18/2023 11:46 AM Signed Returned Sara's call from [facility] regarding Trenton - last nurse we spoke to (Bryant), they were to take patient to [place] ED and follow up with local ortho md. Called and spoke to Cindi - when order was given to Bryant in regards to giving an antibiotic AND taking to [place] ED for surgical consult if no improvement - there was no follow through on that end. The [facility] physician did give an antibiotic 09/27/23 - 10/04/23 and nothing was done after that until Cindi saw Trenton on 10/15/23 AND sent her to [place] ED. The ED gave her pain medication and sent her back to the facility. Cindi said Trentno has had some recent labs AND rose mary fax them to us, I did give the fax number to her. The lower incision is red and warm as well. Appointment scheduled for Sunday10/23/23 at 1:15pm w/MARTIN [place]. Sending to Dr. May for review Thank you Ethel Dave [facility] Counselor Sandra Shahlotalonso Sue 10/18/2023 3:03 PM Signed Spoke to Cindi - she is going to [facility] to arrange for transport. She did state that sometimes they can moss picker in 15 minutes but sometimes it can take hours. Cindi does have direct phone # and knows I am in office until 530pm should she need to reach the office, after that to call the main office phone #. Also [facility] address. Thank you Ethel Dave Pediatric Genetic Counselor [facility] Allergies As of Date: 10/18/2023 Noted Allergy Reaction LATEX 01/18/2011 9 - Itching Comments: Red and dry cracking skin Date Reviewed: 09/05/2023 Reviewed by: Arminda Murillo RN - Fully Assessed Reason for Visit: returned [facility] call [Other] Patient Update [1234] Prescriptions as of 10/18/2023 - acetaminophen (TYLENOL) 325 mg tablet Take 3 tablets by mouth every 6 hours as needed for pain. - polyethylene glycol 3350 17 gram packet Take 1 Packet by mouth once daily. Dissolve dose in 4 - 8 ounces of liquid and take as directed. - senna-docusate (SENNA-S) 8.6-50 mg per tablet Take 1 tablet by mouth two times a day. - nicotine (NICODERM) 7 mg/24 hr Apply 1 Patch as directed once daily. - prochlorperazine (COMPAZINE) 5 mg tablet Take 1 tablet by mouth every 6 hours as needed for nausea/vomiting. - ENTRESTO 24-26 mg tablet Take 1 tablet by mouth two times a day. - spironolactone (ALDACTONE) 50 mg tablet Take 50 mg by mouth once daily. - carvedilol (COREG) 12.5 mg tablet Take 12.5 mg by mouth two times a day. - furosemide (LASIX) 40 mg tablet Take 40 mg by mouth two times a day. - cholecalciferol (VITAMIN D3) 1,000 unit tab tablet Take 1,000 Units by mouth once daily. - clopidogrel (PLAVIX) 75 mg tablet Take 75 mg by mouth once daily. - dapagliflozin propanediol (FARXIGA) 10 mg tablet Take 10 mg by mouth once daily. - pantoprazole DR (PROTONIX) 40 mg tablet Take 40 mg by mouth once daily. - Blood-Glucose Meter (FREESTYLE LITE METER) monitoring kit Check sugars 4 times a day DX E11.8 - gabapentin (NEURONTIN) 300 mg capsule Take 300 mg by mouth three times daily. - escitalopram oxalate (LEXAPRO) 10 mg tablet Take 10 mg by mouth once daily. - nicotine (NICODERM) 7 mg/24 hr Apply 1 Patch as directed every 24 hours. - blood sugar diagnostic (FREESTYLE TEST) test strip Check sugars 4 times/d. Use as directed. - insulin needles, DISPOSABLE, (UNIFINE PENTIPS) 31 gauge x 10/17 ndle Use with insulin injections - ondansetron orally disintegrating (ZOFRAN ODT) 4 mg disintegrating tablet Take 1 tablet by mouth every 6 hours as needed. - nitroglycerin sublingual (NITROQUICK) 0.4 mg SL tablet Dissolve 1 tablet under the tongue every 5 minutes as needed for Chest Pain for up to 3 doses. - VENTOLIN HFA 90 mcg/actuation inhaler Inhale 2 Puffs as instructed every 4 hours as needed for Wheezing/Shortness of Breath. - insulin glargine (LANTUS SOLOSTAR, BASAGLAR KWIKPEN) 100 unit/mL (3 mL) inpn Inject 40 Units subcutaneously twice daily. - Blood Pressure Monitor (BLOOD PRESSURE KIT) kit 1 Each once daily. - atorvastatin (LIPITOR) 80 mg tablet Take 1 tablet by mouth daily at bedtime. - aspirin, enteric coated (ASPIRIN, ENTERIC COATED) 81 mg EC tablet Take 1 tablet by mouth once daily. Meds Comments as of 03/07/2017: Pt held all medications X 4 days per her [id number]. 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 Normal [facility] CONSULTon 10-18-2023 CONSULT HNO ID: [id number] Author: DIYA MAY MD Service: Orthopaedic Surgery Author Type: Resident Type: Consults Filed: 10/19/2023 08:09 Note Text: ----- Attestation signed by Diya May MD at 10/19/2023 8:09 AM I participated in the jonse components. I agree with the resident's findings and plan as documented and have discussed the case and management of the patient's care with the resident. Signature: Diya May MD Service Date: 10/19/2023 Service Time: 8:09 AM ----- ORTHOPAEDIC SURGERY CONSULT Pt: TRENTON JACKSON Date of Consultation: 10/18/2023 Physician Consulted: Dr. May Reason for Consultation: Right hip pain, concern for infection HPI: 53 year old female presented to [facility] due to concern for an infection of her right hip s/p insertion CMN 09/03/[address]. Patient has not yet been seen for follow-up and has been residing in a SNF. She has been seen at multiple outside ED's for issues with pain control and concern for infection. She was sent to ED today by her SNF due to concern for a possible incision issue. She states that over the past few days she had been experiencing increasing right hip pain along with constipation. She states that after a bowel movement yesterday her pain decreased significantly. In regards to her right hip she states she feels it has been slowly improving, however, it is still painful. She states she has been able to ambulate short distances. Denies any new trauma. She states her incisions are well healed without drainage. Denies any fevers/chills.She endorses taking a lot of pain medications recently, contributing to her constipation. Afebrile on arrival with WBC WNL. Denies additional complaints. PAST MEDICAL HISTORY Diagnosis Date Chest pain Diabetes mellitus Diverticula of intestine Hyperglycemia 09/23/2018 Hyperlipemia Hypertension Incisional hernia Psychiatric disorder PAST SURGICAL HISTORY Procedure Laterality Date APPENDECTOMY 2007 DELIVERY ONLY , low transverse COLONOSCOPY 2001? DILATION AND CURETTAGE DXAND/THER NONOBSTETRIC 10/17/12 ESOPHAGOGASTRODUODENOSCOP Y TRANSORAL DIAGNOSTIC 02/01/2016 EGD HEART CATHETERIZATION IMPLANT MESH OPN HERNIA RPR/DEBRIDEMENT CLOSURE 10/16/13 LAPAROSCOPY SURG CHOLECYSTECTOMY 1998 Cholecystectomy, lap LIG/TRNSXJ FLP TUBE ABDL/VAG APPR UNI/BI Tubal ligation PAST SURGICAL HISTORY OF 2009 cysy removed from neck REPAIR FIRST ABDOMINAL WALL HERNIA 10/16/13 SIGMOIDOSCOPY FLX DX W/COLLJ SPEC BR/WA IF PFRMD 02/01/2016 Sigmoidoscopy, flexible Allergies: Latex Current Facility-Administered Medications Medication Dose Route Frequency NaCl 0.9% 500 mL iv bolus 500 mL INTRAVENOUS ONCE Current Outpatient Medications Medication Sig acetaminophen (TYLENOL) 325 mg tablet Take 3 tablets by mouth every 6 hours as needed for pain. polyethylene glycol 3350 17 gram packet Take 1 Packet by mouth once daily. Dissolve dose in 4 - 8 ounces of liquid and take as directed. senna-docusate (SENNA-S) 8.6-50 mg per tablet Take 1 tablet by mouth two times a day. nicotine (NICODERM) 7 mg/24 hr Apply 1 Patch as directed once daily. prochlorperazine (COMPAZINE) 5 mg tablet Take 1 tablet by mouth every 6 hours as needed for nausea/vomiting. ENTRESTO 24-26 mg tablet Take 1 tablet by mouth two times a day. spironolactone (ALDACTONE) 50 mg tablet Take 50 mg by mouth once daily. carvedilol (COREG) 12.5 mg tablet Take 12.5 mg by mouth two times a day. furosemide (LASIX) 40 mg tablet Take 40 mg by mouth two times a day. cholecalciferol (VITAMIN D3) 1,000 unit tab tablet Take 1,000 Units by mouth once daily. clopidogrel (PLAVIX) 75 mg tablet Take 75 mg by mouth once daily. dapagliflozin propanediol (FARXIGA) 10 mg tablet Take 10 mg by mouth once daily. pantoprazole DR (PROTONIX) 40 mg tablet Take 40 mg by mouth once daily. Blood-Glucose Meter (FREESTYLE LITE METER) monitoring kit Check sugars 4 times a day DX E11.8 gabapentin (NEURONTIN) 300 mg capsule Take 300 mg by mouth three times daily. escitalopram oxalate (LEXAPRO) 10 mg tablet Take 10 mg by mouth once daily. nicotine (NICODERM) 7 mg/24 hr Apply 1 Patch as directed every 24 hours. blood sugar diagnostic (FREESTYLE TEST) test strip Check sugars 4 times/d. Use as directed. insulin needles, DISPOSABLE, (UNIFINE PENTIPS) 31 gauge x 5/16 ndle Use with insulin injections ondansetron orally disintegrating (ZOFRAN ODT) 4 mg disintegrating tablet Take 1 tablet by mouth every 6 hours as needed. (Patient taking differently: Take 4 mg by mouth every 8 hours as needed for nausea/vomiting.) nitroglycerin sublingual (NITROQUICK) 0.4 mg SL tablet Dissolve 1 tablet under the tongue every 5 minutes as needed for Chest Pain for up to 3 dose (more content not included)... Normal [facility] Comprehensive metabolic 2000 panelon 10-18-2023 Albumin [Mass/Vol] 3.5 g/dL Low 3.9-4.9 [facility] Comment on above: Order Comment: Speci men Type: BLOOD SPECIMEN Ordering Facility: [facility] Address: [address] [place] [address] Performed By: #### 2 432-8, #### [facility] CLIA [id number] [address] [place] [address] [place] ALP [Catalytic activity/Vol] 135 U/L High 34-123 [facility] Comment on above: Order Comment: Speci men Type: BLOOD SPECIMEN Ordering Facility: [facility] Address: [address] [place] [address] Performed By: #### 2 4323-, #### [facility] CLIA [id number] [address] [place] With P-5'-P [Catalytic activity/Vol] Normal [facility] Comment on above: Order Comment: Speci men Type: BLOOD SPECIMEN Ordering Facility: [facility] Address: [address] [place] [address] Result Comment: Unab le to assay due to interference from hemolysis. Suggest reorder as clinically indicated. Performed By: #### 2 4328, #### [facility] CLIA [id number] [address] Anion gap [Moles/Vol] 14 mmol/L Normal 9-18 [facility] Comment on above: Order Comment: Radha tony Type: BLOOD SPECIMEN Ordering Facility: [facility] Address: [address] [place] [address] Performed By: #### 2 4328, #### [facility] CLIA [id number] [address] [place] With P-5'-P [Catalytic activity/Vol] Normal [facility] Comment on above: Order Comment: Speci men Type: BLOOD SPECIMEN Ordering Facility: [facility] Address: [address] [place] [address] Result Comment: Unab le to assay due to interference from hemolysis. Suggest reorder as clinically indicated. Performed By: #### 2 8, #### [facility] CLIA [id number] [address] [place] Bilirubin [Mass/Vol] 0.5 mg/dL Normal 0.2-1.3 [facility] Comment on above: Order Comment: Speci men Type: BLOOD SPECIMEN Ordering Facility: [facility] Address: [address] [place] [address] Performed By: #### 2 4323-01, #### [facility] CLIA [id number] [address] [place] Calcium [Mass/Vol] 9.0 mg/dL Normal 8.5-10.2 [facility] Comment on above: Order Comment: Speci men Type: BLOOD SPECIMEN Ordering Facility: [facility] Address: [address] [place] [address] Performed By: #### 2 4323-8, #### [facility] CLIA [id number] [address] [place] [address] [place] Chloride [Moles/Vol] 98 mmol/L Normal 97-105 [facility] Comment on above: Order Comment: Speci men Type: BLOOD SPECIMEN Ordering Facility: [facility] Address: [address] [place] [address] Performed By: #### 2 43238, #### [facility] CLIA [id number] [address] [place] [address] [place] CO2 [Moles/Vol] 24 mmol/L Normal 22-30 [facility] Comment on above: Order Comment: Speci men Type: BLOOD SPECIMEN Ordering Facility: [facility] Address: [address] [place] [address] Performed By: #### 2 4328, #### [facility] CLIA [id number] [address] [place] Creatinine [Mass/Vol] 1.61 mg/dL High 0.58-0.96 [facility] Comment on above: Order Comment: Speci men Type: BLOOD SPECIMEN Ordering Facility: [facility] Address: [address] [place] [address] Performed By: #### 2 43238, #### [facility] CLIA [id number] [address] [place] Creatinine and Glomerular filtration rate.predicted panel (S/P/Bld) 38 mL/min/1.73m??? Low >=60 [facility] Comment on above: Order Comment: Speci men Type: BLOOD SPECIMEN Ordering Facility: [facility] Address: [address] [place] [address] Result Comment: Crissy mated Glomerular Filtration Rate (eGFR) is calculated using the 2020 CKD-EPI creatinine equation. This equation utilizes serum creatinine, sex, and age as parameters. The creatinine assay has traceable calibration to isotope dilution-mass spectrometry. Refer to KDIGO guidelines for clinical interpretation. In patients with unstable renal function, e.g. those with acute kidney injury, the eGFR may not accurately reflect actual GFR. Performed By: #### 2 432-, #### [facility] CLIA [id number] [address] [place] [address] [place] Glucose [Mass/Vol] 160 mg/dL High 74-99 [facility] Comment on above: Order Comment: Speci men Type: BLOOD SPECIMEN Ordering Facility: [facility] Address: [address] [place] [address] Result Comment: The [place] Diabetes [employer] (ADA) provides guidance for cutoff values for fasting glucose and random glucose. The ADA defines fasting as no caloric intake for at least 8 hours. Fasting plasma glucose results between 100 to 125 mg/dL indicate increased risk for diabetes (prediabetes). Fasting plasma glucose results greater than or equal to 126 mg/dL meet the criteria for diagnosis of diabetes. In the absence of unequivocal hyperglycemia, results should be confirmed by repeat testing. In a patient with classic symptoms of hyperglycemia or hyperglycemic crisis, random plasma glucose results greater than or equal to 200 mg/dL meet the criteria for diagnosis of diabetes. Reference: Standards of Medical Care in Diabetes 2016, [place] [employer]. Diabetes Care. 2016.39(Suppl 1). Performed By: #### 2 4323-01, #### [facility] CLIA [id number] [address] [place] [address] [place] Potassium [Moles/Vol] Normal [facility] Comment on above: Order Comment: Speci men Type: BLOOD SPECIMEN Ordering Facility: [facility] Address: [address] [place], [place] [id number] Result Comment: Unab le to assay due to interference from hemolysis. Suggest reorder as clinically indicated. Performed By: #### 2 43208-09, #### [facility] CLIA [id number] 1 [place] [address] [place] Protein [Mass/Vol] 6.9 g/dL Normal 6.3-8.0 [facility] Comment on above: Order Comment: Speci men Type: BLOOD SPECIMEN Ordering Facility: [facility] Address: [address] [place] [address] Performed By: #### 2 4323-8, #### [facility] CLIA [id number] [address] OF [facility] Sodium [Moles/Vol] 136 mmol/L Normal 136-144 [facility] Comment on above: Order Comment: Speci men Type: BLOOD SPECIMEN Ordering Facility: [facility] Address: [address] [place] [address] Performed By: #### 2 4323-8, #### [facility] CLIA [id number] [address] OF [facility] Urea nitrogen [Mass/Vol] 51 mg/dL High 7-21 [facility] Comment on above: Order Comment: Speci men Type: BLOOD SPECIMEN Ordering Facility: [facility] Address: [address] [place] [address] Performed By: #### 2 4328, #### [facility] CLIA [id number] [address] ED NOTEon 10-18-2023 ED NOTE HNO ID: [id number] Author: JIMY CHING RN Service: Emergency Medicine Author Type: Registered Nurse Type: ED Notes Filed: 10/18/2023 19:40 Note Text: Xray at bedside Normal [facility] ED NOTE HNO ID: [id number] Author: ERVIN RENO RN Service: Emergency Medicine Author Type: Registered Nurse Type: ED Notes Filed: 10/18/2023 18:56 Note Text: XR notified pt is ready for ordered imaging Normal [facility] ED NOTE HNO ID: [id number] Author: ERVIN RENO, RN Service: Emergency Medicine Author Type: Registered Nurse Type: ED Notes Filed: 10/18/2023 18:32 Note Text: Patient's identity verified by patient stating name, Patient's identity verified by patient stating date, Patient's identity verified by hospital ID bracelet. Patient placed on radiation monitor, patient placed on non-invasive blood pressure monitor, patient placed on continuous pulse oximetry. Alarms set and on, patient tolerating monitoring. Normal [facility] ED NOTE HNO ID: [id number] Author: GARRISON VAUGHAN RN Service: ? Author Type: Registered Nurse Type: ED Notes Filed: 10/18/2023 18:24 Note Text: Bed: 33- Expected date: Expected time: Means of arrival: Comments: BH ONLY Normal [facility] ED PROV NOTEon 10-18-2023 ED PROV NOTE HNO ID: [id number] Author: MARIA E PORTILLO MD Service: Emergency Medicine Author Type: Physician Type: ED Provider Notes Filed: 10/19/2023 01:23 Note Text: Brief HPI: Trenton Jackson is a 53 year old female with a PMH as documented below who presents for evaluation of right hip pain. The patient is presenting from the nursing facility for right hip pain. The patient states she is currently doing rehab after she suffered a fracture s/p repair and then followed by infection requiring IV antibiotics. She completed the antibiotics. The patient states she has been doing a lot of rehab and has been up and about a lot more recently. She states that 2 days ago, she suffered constipation. She took some laxatives and had a large blowout. She states that exacerbated her right hip pain. She denies any other fall or trauma. Patient states the pain does seem to be however getting better. She denies any numbness or weakness in the right leg. She states the pain does occasionally shoot down the leg however that comes and goes. That pain is improving as well. I spoke with the nursing facility concerning why she was sent into the ED. The nurse told me that they did contact the orthopedics office and was told to come to the ED as she has not followed up recently. I also discussed her blood pressure with the nurse at the facility. We noted the blood pressure to be low here and she is on midodrine. The nursing facility state that she has had lower blood pressures since admission. They have been trying to manage her medications and she is on midodrine. The nurse at the facility said that they have had to occasionally give her IV fluids as well. Patient has not had any recent fevers chills in the fpc denies any other concerns. The patient denies any chest pain, palpitations, shortness of breath, abdominal pain, vomiting. She is tolerating a diet normally. PAST MEDICAL HISTORY Diagnosis Date Chest pain Diabetes mellitus Diverticula of intestine Hyperglycemia 09/23/2018 Hyperlipemia Hypertension Incisional hernia Psychiatric disorder Constitutional: Nontoxic, well-appearing without any respiratory distress. Alert and oriented x 3 and answering questions appropriately. HEENT: Mucous membranes moist. Neck: Supple. Normal range of motion. Cardiovascular: Heart is regular rate and rhythm without murmurs, rubs or gallops. Pulmonary: Lungs clear to auscultation bilaterally without wheezes, rhonchi as well as rales. Gastrointestinal: Abdomen soft, nontender, nondistended with normal active bowel sounds. No rebound, guarding or peritoneal signs. Genitourinary: No CVA tenderness. Muscle skeletal: Patient has some mild tenderness throughout the right hip lateral aspect without any erythema. It is slightly warm. She does range it quite well but states it does cause some discomfort. No swelling. No calf tenderness or lower extremity edema. Distal DP pulse is palpable. MDM: 53-year-old female presenting for ongoing right hip pain. She again suffered a fracture followed by infection and is currently in rehab. She is off all antibiotics. She states she has been up and about on the leg more recently. She has been doing more rehab. No fever or chills. The nursing facility told me that the patient was sent in to be seen by orthopedics as they have not been able to follow-up recently. The patient states she is having slightly more pain over the past 2 days but it is improving. She states this pain seem to be associated with a large bowel movement. No fall or trauma. She is without numbness or tingling distally. Patient with low blood pressure and again the nursing facility states she is on midodrine and they have been battling low blood pressures since she arrived to the nursing facility. We will give her a dose of midodrine as well as check CBC and BMP. Will give her a small saline bolus. The patient otherwise denies complaints currently. She states she feels well. All review: No leukocytosis. No anemia. CMP with elevated BUN/creatinine. Hip x-ray did show an intact hardware. Patient seen by Ortho and no further recs. No concerns for infection at this time. Patient with an ROBBIE. The patient however states she has been eating and drinking well. No vomiting. She was constipated but now is moving her bowels but she states not too excessive where she would be dehydrated. No abdominal pain. No fevers chills. She is on diuretics thus could be contributing to her ROBBIE. The patient was given 2x 500 cc saline boluses. BP improved. She again denies any symptoms. She will be admitted for further workup and management of her ROBBIE and hypotension. No signs of infection currently and BP seems to be an ongoing hook. See resident/PA note for disposition details MARIA E PORTILLO 10/19/23 0123 [facility] ED PROV NOTE HNO ID: [id number] Author: MARIA E PORTILLO MD Service: Emergency Medicine Author Type: Resident Type: ED Provider Notes Filed: 10/19/2023 03:42 Note Text: ----- Attestation signed by Maria E Portillo MD at 10/19/2023 3:42 AM Attending Note I evaluated the patient and personally participated in the jones components. I agree with the resident's findings and plan with the following revisions and/or additions: see my note. Signature: Maria E Portillo MD Date: 10/19/2023 Time: 3:42 AM ----- ED Provider Note Patient Name: Trenton Jackson : 1970 SERVICE DATE: 10/18/23 History Patient presents with: Hip Pain: Pt arrives via EMS from SNF for c/o R hip pain. Pt had a fall on and was transferred to [facility] for surgery from [facility]. Pt has been having pain since the surgery, worsening recently. Pt endorses ambulation with walker in PT/ OT. Pt AANDO3. 53-year-old female presenting from SNF for complaint of right hip pain. Patient had an ORIF of the right hip on 09/03/2023. Patient states that her facility wanted her to get evaluated. She states that her postop course was complicated by an infection which has been treated with antibiotics. She states that she has been doing PT/OT and has been ambulating with a walker however her pain in her right hip is not well-controlled with her current regimen. Patient currently takes she is currently takes oxycodone 5 mg every 6 hours for pain as well as baclofen for muscle spasms. Patient denies any new trauma. She denies any fevers, chills, redness of the area. She denies chest pain, shortness of breath. PAST MEDICAL HISTORY Diagnosis Date Chest pain Diabetes mellitus Diverticula of intestine Hyperglycemia 09/23/2018 Hyperlipemia Hypertension Incisional hernia Psychiatric disorder PAST SURGICAL HISTORY Procedure Laterality Date APPENDECTOMY 2007 DELIVERY ONLY , low transverse COLONOSCOPY 2001? DILATION AND CURETTAGE DXAND/THER NONOBSTETRIC 10/17/12 ESOPHAGOGASTRODUODENOSCOP Y TRANSORAL DIAGNOSTIC 02/01/2016 EGD HEART CATHETERIZATION IMPLANT MESH OPN HERNIA RPR/DEBRIDEMENT CLOSURE 10/16/13 LAPAROSCOPY SURG CHOLECYSTECTOMY 1998 Cholecystectomy, lap LIG/TRNSXJ FLP TUBE ABDL/VAG APPR UNI/BI Tubal ligation PAST SURGICAL HISTORY OF 2009 cysy removed from neck REPAIR FIRST ABDOMINAL WALL HERNIA 10/16/13 SIGMOIDOSCOPY FLX DX W/COLLJ SPEC BR/WA IF PFRMD 02/01/2016 Sigmoidoscopy, flexible FAMILY HISTORY Problem Relation Age of Onset Thyroid Mother Graves Diabetes Mother Hypertension Mother Diabetes Maternal Grandmother Diabetes Maternal Uncle Diabetes Maternal Aunt Social History Tobacco Use Smoking status: Every Day Packs/day: 0.50 Years: 27.00 Additional pack years: 0.00 Total pack years: 13.50 Types: Cigarettes Smokeless tobacco: Never Substance and Sexual Activity Alcohol use: No Drug use: Yes Types: Marijuana Comment: ocassionally Sexual activity: Yes Partners: Male control/protection: Tubal Ligation ALLERGIES Allergen Reactions Latex Itching Red and dry cracking skin Review of Systems Constitutional: Negative for diaphoresis, fatigue and fever. HENT: Negative for rhinorrhea, sinus pain and sore throat. Respiratory: Negative for cough, shortness of breath and wheezing. Cardiovascular: Negative for chest pain, palpitations and leg swelling. Gastrointestinal: Negative for abdominal pain, diarrhea and nausea. Genitourinary: Negative for dysuria, flank pain and hematuria. Neurological: Negative for dizziness, light-headedness, numbness and headaches. Physical Exam Vitals [10/18/23 1830] BP Pulse Temp Temp src Resp SpO2 Weight Height 98/58 (!) 96 36.7 ?C (98 ?F) Oral 18 99 % 77.1 kg (170 lb) 1.702 m (5' 7) Physical Exam Vitals and nursing note reviewed. Constitutional: General: She is not in acute distress. Appearance: She is not toxic-appearing. HENT: Head: Normocephalic and atraumatic. Right Ear: External ear normal. Left Ear: External ear normal. Nose: No congestion or rhinorrhea. Mouth/Throat: Mouth: Mucous membranes are moist. Eyes: Extraocular Movements: Extraocular movements intact. Conjunctiva/sclera: Conjunctivae normal. Pupils: Pupils are equal, round, and reactive to light. Cardiovascular: Rate and Rhythm: Normal rate and regular rhythm. Heart sounds: No murmur heard. No gallop. Pulmonary: Effort: Pulmonary effort is normal. Breath sounds: Normal breath sounds. No wheezing, rhonchi or rales. Abdominal: General: Abdomen is flat. Bowel sounds are normal. There is no distension. Palpations: Abdomen is soft. Tenderness: There is no abdominal tenderness. There is no guarding. Musculoskeletal: General: Normal range (more content not included)... Normal [facility] HISTORY PHYSICALon HISTORY PHYSICAL HNO ID: [id number] Author: JUANCARLOS GRAHAM APRN.CUSTOMER DATA TECHNICIAN Service: Hospital Medicine Author Type: Nurse Practitioner Type: H&P Filed: 10/19/2023 01:52 Note Text: RAPID OBSERVATION UNIT HISTORY AND PHYSICAL EXAM SERVICE DATE: 10/19/2023 SERVICE TIME: 0152 Primary Care Physician: Nathaly Leonard [facility] NIGHT AND WEEKEND COVERAGE: Unit ext: [id number] Pager [phone] Subjective CHIEF COMPLAINT: Right hip pain HPI: Trenton Jackson is a 53 year old female with PMH/PSH noted below and significant for diabetes, HLD, HTN, and recent ORIF of the right hip with subsequent infection. The patient currently resides at a nursing facility. She was doing rehab after suffering a fracture and having this repaired. She developed infection afterwards requiring IV antibiotics. She has completed the antibiotics. A few days ago she suffered some constipation she took some laxatives and had a large bowel movement. She feels that this exacerbated her right hip pain. Denies any trauma recently. Nursing facility has reported the patient's blood pressure has been low at the facility. She was brought to the emergency department for evaluation ED COURSE: Labs: CBC and differential reviewed and unremarkable CMP shows albumin 3.5, alk phos of 135, glucose 160, BUN of 51, creatinine of 1.61 (typically is normal at baseline) and EGFR of 38 Radiology: X-ray of right hip and pelvis negative EKG: Not performed Medications: 1 L normal saline bolus Midodrine 2.5 mg p.o. I have confirmed and edited as necessary, the PFSH and ROS obtained by others. Upon arrival to the [facility], patient is complaining of right lateral hip pain at the incision site, rating it a 6 out of 10 the pain scale. Describes it as dull and constant. Any movement seems to make it worse. PAST MEDICAL HISTORY Diagnosis Date Chest pain Diabetes mellitus Diverticula of intestine Hyperglycemia 09/23/2018 Hyperlipemia Hypertension Incisional hernia Psychiatric disorder PAST SURGICAL HISTORY Procedure Laterality Date APPENDECTOMY 2007 DELIVERY ONLY , low transverse COLONOSCOPY 2001? DILATION AND CURETTAGE DXAND/THER NONOBSTETRIC 10/17/12 ESOPHAGOGASTRODUODENOSCOP Y TRANSORAL DIAGNOSTIC 02/01/2016 EGD HEART CATHETERIZATION IMPLANT MESH OPN HERNIA RPR/DEBRIDEMENT CLOSURE 10/16/13 LAPAROSCOPY SURG CHOLECYSTECTOMY 1998 Cholecystectomy, lap LIG/TRNSXJ FLP TUBE ABDL/VAG APPR UNI/BI Tubal ligation PAST SURGICAL HISTORY OF 2009 cysy removed from neck REPAIR FIRST ABDOMINAL WALL HERNIA 10/16/13 SIGMOIDOSCOPY FLX DX W/COLLJ SPEC BR/WA IF PFRMD 02/01/2016 Sigmoidoscopy, flexible FAMILY HISTORY Problem Relation Age of Onset Thyroid Mother Graves Diabetes Mother Hypertension Mother Diabetes Maternal Grandmother Diabetes Maternal Uncle Diabetes Maternal Aunt Social History Tobacco Use Smoking status: Every Day Packs/day: 0.50 Years: 27.00 Additional pack years: 0.00 Total pack years: 13.50 Types: Cigarettes Smokeless tobacco: Never Substance Use Topics Alcohol use: No Drug use: Yes Types: Marijuana Comment: ocassionally MEDICATIONS: Reviewed baclofen 5 mg tablet, Take 5 mg by mouth two times a day., Disp: , Rfl: midodrine (PROAMATINE) 2.5 mg tablet, Take 2.5 mg by mouth two times a day., Disp: , Rfl: oxyCODONE IR (ROXICODONE) 5 mg immediate release tablet, Take 5 mg by mouth every 8 hours as needed for pain., Disp: , Rfl: acetaminophen (TYLENOL) 325 mg tablet, Take 3 tablets by mouth every 6 hours as needed for pain., Disp: , Rfl: polyethylene glycol 3350 17 gram packet, Take 1 Packet by mouth once daily. Dissolve dose in 4 - 8 ounces of liquid and take as directed., Disp: , Rfl: senna-docusate (SENNA-S) 8.6-50 mg per tablet, Take 1 tablet by mouth two times a day., Disp: , Rfl: prochlorperazine (COMPAZINE) 5 mg tablet, Take 1 tablet by mouth every 6 hours as needed for nausea/vomiting., Disp: , Rfl: ENTRESTO 24-26 mg tablet, Take 1 tablet by mouth two times a day., Disp: , Rfl: carvedilol (COREG) 12.5 mg tablet, Take 12.5 mg by mouth two times a day., Disp: , Rfl: furosemide (LASIX) 40 mg tablet, Take 40 mg by mouth two times a day., Disp: , Rfl: cholecalciferol (VITAMIN D3) 1,000 unit tab tablet, Take 1,000 Units by mouth once daily., Disp: , Rfl: clopidogrel (PLAVIX) 75 mg tablet, Take 75 mg by mouth once daily., Disp: , Rfl: pantoprazole DR (PROTONIX) 40 mg tablet, Take 40 mg by mouth once daily., Disp: , Rfl: Blood-Glucose Meter (FREESTYLE LITE METER) monitoring kit, Check sugars 4 times a day DX E11.8, Disp: 1 Each, Rfl: 0 gabapentin (NEURONTIN) 300 mg capsule, Take 300 mg by mouth three times daily., Disp: , Rfl: blood sugar diagnostic (FREESTYLE TEST) test strip, Check sugars 4 times/d. Use as directed., Disp: 1 Bottle, Rfl: 2 insulin needles, DISPOSABLE, (UNIFINE PENTIPS) 31 gauge x 10/17 ndle, Use with insulin in (more content not included)... Normal [facility] Magnesium SerPl-mCncon 10-17 Magnesium [Mass/Vol] 2.2 mg/dL Normal 1.7-2.3 [facility] Comment on above: Order Comment: Speci men Type: BLOOD SPECIMEN Ordering Facility: [facility] Address: [address] [place] [address] Performed By: #### 2 4323-8, 99876-0 #### [facility] CLIA [id number] [address] OF [facility] POTASSIUMon 10-18-2023 Potassium [Moles/Vol] 4.0 mmol/L Normal 3.7-5.1 [facility] Comment on above: Order Comment: Speci men Type: BLOOD SPECIMEN Ordering Facility: [facility] Address: [address] [place] [address] Performed By: #### 5 8410-2 #### [facility] CLIA [id number] [address] [place] XR HIP 3V PELV+ AP/LAT RTon 10-18-2023 XR HIP 3V PELV+ AP/LAT RT * * *Final Report* * * DATE OF EXAM: Oct 18 2023 7:47PM AKX [id number] - XR HIP 3V PELV+ AP/LAT RT / PROCEDURE REASON: Hip pain, acute, fx suspected, initial exam * * * * Physician Interpretation * * * * History: Hip pain since surgery TECHNIQUE: 2 views right hip. Frontal view of the pelvis. Findings/ impression: Intramedullary kerline and femoral neck screw for an intertrochanteric fracture of the right hip. Hardware is intact. Vascular calcifications are present. Concrete Tile Machine Operator: GEORGE Transcribe Date/Time: Oct 18 2023 8:09P Dictated by : CLOVER LINTON MD This examination was interpreted and the report reviewed and electronically signed by: CLOVER LINTON MD on Oct 18 2023 8:13PM EST [id number] Normal [facility] Basophil percentageOrdered B y: Kaylie Trujillo on 10-12-2023 Chloride [Moles/Vol] 104 mmol/L 98-107 [facility] Glucose [Mass/Vol] 112 mg/dL 74-106 [facility] Comment on above: Fasting Glucose resu lt from 100 to 125 mg/dL suggests IMPAIRED HOMEOSTASIS per A.D.A. criteria. Potassium [Moles/Vol] 4.5 mmol/L 3.5-5.1 [facility] Sodium [Moles/Vol] 138 mmol/L 136-145 [facility] Laboratory - Chemistry and C hemistry - challengeOrdered By: Kaylie Trujillo on 10-12-2023 CO2 [Moles/Vol] 31.0 mmol/L 21.0-32.0 [facility] Urea nitrogen/Creatinine [Mass ratio] 34.1 mg/mg 10-20 [facility] No Panel InformationOrdered By: Kaylie Trujillo on 10-12-2023 Estimated GFR (MDRD) Amer 112 mL/min >60 [facility] Comment on above: GFR Calc Estimated GFR (MDRD) Non-Af Amer 93 mL/min >60 [facility] Comment on above: Non- GFR Calc Serum or plasma calcium xiomara urement (mass/volume)Ordered By: Kaylie Trujillo on 10-12-2023 Calcium [Mass/Vol] 8.7 mg/dL 8.5-10.1 [facility] Serum or plasma creatinine m easurement (mass/volume)Ordered By: Kaylie Trujillo on 10-12-2023 Creatinine [Mass/Vol] 0.70 mg/dL 0.55-1.02 [facility] Comment on above: The validity of the calculated GFR & GFRAA in patients over 70 years has not been determined. Clinical correlation is essential. Serum or plasma urea nitroge n measurement (mass/volume)Ordered By: Kaylie Trujillo on 05-10-2024 Urea nitrogen [Mass/Vol] 24 mg/dL 12-19 [facility] Thin prep Papanicolaou smear with manual screeningOrdered By: Kaylie Trujillo on 10-12-2023 Thin prep Papanicolaou smear with manual screening 3 10-16 [facility] CNPNon 10-09-2023 CNPN Telephone (AGPOB1) ----- TRENTON JACKSON ([id number]) 1970 [facility] Date Time Provider Department 10/09/23 DIYA MAY AGPOB1 During your visit today, we recorded the following information about you: Ethel Alonso 10/09/2023 10:51 AM Signed ----- Message from Pauly Heredia sent at 10/09/2023 9:45 AM EDT ----- Regarding: Orthopedics/Vrabec/Hip/Po st-Op Within 90-Day Period Contact: Orthopedics/Vrabec/Hip/Po st-Op Within 90-Day Period Patient has been identified by name and Date of (Y/N): y Patient: Trenton Jackson Date of : 1970 Previous Provider Seen: Dr May Body Part(s) Identified: R hip Diagnosis/Reason For Visit: rehab called to sched post-op appt w/ Dr May for R hip sx on 09/03/23 Reason for the call/escalation: per sched tool If reason for call/escalation is discharge from ED/ER or Hospital, which facility was the patient seen at: n/a Was an appointment scheduled (Y/N): n Person calling if other than patient: Bryant @ [facility] Return call to if other than patient: same Best contact number: [phone] Thank you, Pauly Heredia October 09, 2023 9:46 AM Ethel Alonso 10/17/2023 4:44 PM Signed Left 2 messages Allergies As of Date: 10/09/2023 Noted Allergy Reaction LATEX 01/18/2011 9 - Itching Comments: Red and dry cracking skin Date Reviewed: 09/05/2023 Reviewed by: Arminda Murillo, CHAYITO - Fully Assessed Prescriptions as of 10/17/2023 - acetaminophen (TYLENOL) 325 mg tablet Take 3 tablets by mouth every 6 hours as needed for pain. - polyethylene glycol 3350 17 gram packet Take 1 Packet by mouth once daily. Dissolve dose in 4 - 8 ounces of liquid and take as directed. - senna-docusate (SENNA-S) 8.6-50 mg per tablet Take 1 tablet by mouth two times a day. - nicotine (NICODERM) 7 mg/24 hr Apply 1 Patch as directed once daily. - prochlorperazine (COMPAZINE) 5 mg tablet Take 1 tablet by mouth every 6 hours as needed for nausea/vomiting. - ENTRESTO 24-26 mg tablet Take 1 tablet by mouth two times a day. - spironolactone (ALDACTONE) 50 mg tablet Take 50 mg by mouth once daily. - carvedilol (COREG) 12.5 mg tablet Take 12.5 mg by mouth two times a day. - furosemide (LASIX) 40 mg tablet Take 40 mg by mouth two times a day. - cholecalciferol (VITAMIN D3) 1,000 unit tab tablet Take 1,000 Units by mouth once daily. - clopidogrel (PLAVIX) 75 mg tablet Take 75 mg by mouth once daily. - dapagliflozin propanediol (FARXIGA) 10 mg tablet Take 10 mg by mouth once daily. - pantoprazole DR (PROTONIX) 40 mg tablet Take 40 mg by mouth once daily. - Blood-Glucose Meter (FREESTYLE LITE METER) monitoring kit Check sugars 4 times a day DX E11.8 - gabapentin (NEURONTIN) 300 mg capsule Take 300 mg by mouth three times daily. - escitalopram oxalate (LEXAPRO) 10 mg tablet Take 10 mg by mouth once daily. - nicotine (NICODERM) 7 mg/24 hr Apply 1 Patch as directed every 24 hours. - blood sugar diagnostic (FREESTYLE TEST) test strip Check sugars 4 times/d. Use as directed. - insulin needles, DISPOSABLE, (UNIFINE PENTIPS) 31 gauge x 5/16 ndle Use with insulin injections - ondansetron orally disintegrating (ZOFRAN ODT) 4 mg disintegrating tablet Take 1 tablet by mouth every 6 hours as needed. - nitroglycerin sublingual (NITROQUICK) 0.4 mg SL tablet Dissolve 1 tablet under the tongue every 5 minutes as needed for Chest Pain for up to 3 doses. - VENTOLIN HFA 90 mcg/actuation inhaler Inhale 2 Puffs as instructed every 4 hours as needed for Wheezing/Shortness of Breath. - insulin glargine (LANTUS SOLOSTAR, BASAGLAR KWIKPEN) 100 unit/mL (3 mL) inpn Inject 40 Units subcutaneously twice daily. - Blood Pressure Monitor (BLOOD PRESSURE KIT) kit 1 Each once daily. - atorvastatin (LIPITOR) 80 mg tablet Take 1 tablet by mouth daily at bedtime. - aspirin, enteric coated (ASPIRIN, ENTERIC COATED) 81 mg EC tablet Take 1 tablet by mouth once daily. Meds Comments as of 03/07/2017: Pt held all medications X 4 days per her [id number]. Problem List As Of Date 10/09/2023 Noted Resolved Abdominal pain, other specified site [R10.9] 10/23/2012 Essential hypertension [I10] 02/20/2017 Pericardial cyst [Q24.8] 02/20/2017 Pericardial effusion [I31.39] 02/20/2017 Depression [F32.A] 02/20/2017 Anxiety [F41.9] 02/20/2017 Right-sided low back pain with right-sided scia*02/20/2017 Type 2 diabetes mellitus with complication, wit*03/07/2017 Chest pain [R07.9] 11/30/2017 Dyslipidemia [E78.5] 11/30/2017 Chest pain at rest [R07.9] 11/30/2017 Cardiomyopathy (HCC) [I42.9] 12/02/2017 Smoker [F17.200] 12/02/2017 Leucocytosis [D72.829] 12/03/2017 Erythrocytosis [D75.1] 12/03/2017 Hypotension [I95.9] 12/03/2017 Unstable angina (HCC) [I20.0] 12/05/2017 Uncontrolled type 2 diabetes mellitus (more content not included)... Normal [facility] Absolute lymphocyte countOrd ered By: Kaylie Trujillo on 10-08-2023 Lymphocytes Auto (Unsp spec) [#/Vol] 1.68 10*3/uL 0.83-4.51 [facility] Automated lymphocyte count a s percentage of total leukocytesOrdered By: Kaylie Trujillo on 10-08-2023 Lymphocytes/100 WBC Auto (Unsp spec) 19.2 % 19-41 [facility] Basophil percentageOrdered B y: Kaylie Trujillo on 10-08-2023 Basophils/100 WBC (Bld) 0.7 % 0-1 [facility] Chloride [Moles/Vol] 108 mmol/L 98-107 [facility] Eosinophils/100 WBC (Bld) 1.4 % 0-5 [facility] Glucose [Mass/Vol] 67 mg/dL 74-106 [facility] Hemoglobin (Bld) [Mass/Vol] 12.1 g/dL 12.0-15.0 [facility] Monocytes/100 WBC (Bld) 7.8 % 0-10 [facility] Neutrophils (Bld) [#/Vol] 6.2 10*3/uL 2.0-7.7 [facility] Neutrophils/100 WBC (Bld) 70.6 % 47-70 [facility] Potassium [Moles/Vol] 5.6 mmol/L 3.5-5.1 [facility] Sodium [Moles/Vol] 139 mmol/L 136-145 [facility] WBC (Bld) [#/Vol] 8.7 10*3/uL 4.4-11.0 [facility] Determination of erythrocyte mean corpuscular volume (MCV)Ordered By: Kaylie Trujillo on 10-08-2023 MCV (RBC) [Entitic vol] 86.7 fL 81-99 [facility] Erythrocyte distribution wid th ratioOrdered By: Kaylie Trujillo on 10-08-2023 Erythrocyte distribution width (RBC) [Ratio] 16.6 % 11.6-14.6 [facility] Erythrocyte distribution wid th standard deviationOrdered By: Kaylie Trujillo on 10-08-2023 Erythrocyte distribution width (RBC) [Entitic vol] 52.3 fL 35.1-43.9 [facility] Hematocrit Auto (Bld) [Volum e fraction]Ordered By: Kaylie Trujillo on 10-08-2023 Hematocrit (Bld) [Volume fraction] 39.6 % 37-47 [facility] Immature granulocytes/100 WB C Auto (Bld)Ordered By: Kaylie Trujillo on 10-08-2023 Immature granulocytes/100 WBC (Bld) 0.300 % 0.0-0.9 [facility] Comment on above: IG% - Immature Granu locytes (promyelocytes, myelocytes and metamyelocytes) > 1% indicates that a LEFT SHIFT is Present. Laboratory - Chemistry and C hemistry - challengeOrdered By: Kaylie Trujillo on 10-08-2023 CO2 [Moles/Vol] 27.0 mmol/L 21.0-32.0 [facility] Magnesium [Mass/Vol] 2.5 mg/dL 1.6-2.6 [facility] Urea nitrogen/Creatinine [Mass ratio] 27.6 mg/mg 10-20 [facility] Laboratory - Hematology and Cell countsOrdered By: Kaylie Trujillo on 10-08-2023 MCH (RBC) [Entitic mass] 26.5 pg 27.0-32.0 [facility] MCHC (RBC) [Mass/Vol] 30.6 g/dL 32-36 [facility] Nucleated RBC/100 WBC (Bld) [Ratio] 0 % 0-5 [facility] Platelet mean volume (Bld) [Entitic vol] 9.3 fL 6.2-12.0 [facility] Platelets (Bld) [#/Vol] 243 10*3/uL 150-450 [facility] No Panel InformationOrdered By: Kaylie Trujillo on 10-08-2023 Estimated GFR (MDRD) Amer 102 mL/min >60 [facility] Comment on above: GFR Calc Estimated GFR (MDRD) Non-Af Amer 85 mL/min >60 [facility] Comment on above: Non- GFR Calc RBC Auto (Bld) [#/Vol]Ordere d By: Kaylie Trujillo on 10-08-2023 RBC (Bld) [#/Vol] 4.57 10*6/uL 4.2-5.4 [facility] Serum or plasma calcium xiomara urement (mass/volume)Ordered By: Kaylie Trujillo on 10-08-2023 Calcium [Mass/Vol] 9.3 mg/dL 8.5-10.1 [facility] Serum or plasma creatinine m easurement (mass/volume)Ordered By: Kaylie Trujillo on 10-08-2023 Creatinine [Mass/Vol] 0.76 mg/dL 0.55-1.02 [facility] Comment on above: The validity of the calculated GFR & GFRAA in patients over 70 years has not been determined. Clinical correlation is essential. Serum or plasma urea nitroge n measurement (mass/volume)Ordered By: Kaylie Trujillo on 10-08-2023 Urea nitrogen [Mass/Vol] 21 mg/dL 7-18 [facility] Thin prep Papanicolaou smear with manual screeningOrdered By: Kaylieoskar Trujillo on 10-08-2023 Thin prep Papanicolaou smear with manual screening 4 5-15 [facility] CNPNon 10-04-2023 CNPN Telephone (AGPOB1) ----- TRENTON JACKSON ([id number]) 1970 [facility] Date Time Provider Department 10/04/23 DIYA MAY [facility] During your visit today, we recorded the following information about you: Tenzin Pediatric Genetic Counselor Alyssa Ethel J 10/04/2023 2:40 PM Signed ----- Message from Melany Simon sent at 10/03/2023 1:23 PM EDT ----- Regarding: Orthopedics / Diya May) Leg: Fracture Broken / Post Op Within 90 Day Period Orthopedics / Diya May) Leg: Fracture Broken / Post Op Within 90 Day Period Patient has been identified by name and Date of (Y/N): y Patient: Trenton Jackson Date of : 1970 Previous Provider Seen: N/A Body Part(s) Identified: femur Diagnosis/Reason For Visit: feumr fracture Reason for the call/escalation: Leg: Fracture Broken / Post Op Within 90 Day Period If reason for call/escalation is discharge from ED/ER or Hospital, which facility was the patient seen at: [facility] Was an appointment scheduled (Y/N): no-unable to schedule per tool Person calling if other than patient: Bryant([facility]) Return call to if other than patient: Bryant Best contact number: [phone] Thank you, Melany Simon October 03, 2023 1:23 PM [facility] Ethel Shah 10/08/2023 3:47 PM Signed Left message for Bryant to get an update on Trenton. Last message to her was instructions from Dr. May regarding giving her antibiotics, taking her to [place] emergency department if no improvements for a surgical consult. Thank you Ethel Dave [facility] Allergies As of Date: 10/04/2023 Noted Allergy Reaction LATEX 01/18/2011 9 - Itching Comments: Red and dry cracking skin Date Reviewed: 09/05/2023 Reviewed by: Arminda Murillo RN - Fully Assessed Reason for Visit: Patient Update [1234] Prescriptions as of 10/08/2023 - acetaminophen (TYLENOL) 325 mg tablet Take 3 tablets by mouth every 6 hours as needed for pain. - polyethylene glycol 3350 17 gram packet Take 1 Packet by mouth once daily. Dissolve dose in 4 - 8 ounces of liquid and take as directed. - senna-docusate (SENNA-S) 8.6-50 mg per tablet Take 1 tablet by mouth two times a day. - nicotine (NICODERM) 7 mg/24 hr Apply 1 Patch as directed once daily. - prochlorperazine (COMPAZINE) 5 mg tablet Take 1 tablet by mouth every 6 hours as needed for nausea/vomiting. - ENTRESTO 24-26 mg tablet Take 1 tablet by mouth two times a day. - spironolactone (ALDACTONE) 50 mg tablet Take 50 mg by mouth once daily. - carvedilol (COREG) 12.5 mg tablet Take 12.5 mg by mouth two times a day. - furosemide (LASIX) 40 mg tablet Take 40 mg by mouth two times a day. - cholecalciferol (VITAMIN D3) 1,000 unit tab tablet Take 1,000 Units by mouth once daily. - clopidogrel (PLAVIX) 75 mg tablet Take 75 mg by mouth once daily. - dapagliflozin propanediol (FARXIGA) 10 mg tablet Take 10 mg by mouth once daily. - pantoprazole DR (PROTONIX) 40 mg tablet Take 40 mg by mouth once daily. - Blood-Glucose Meter (FREESTYLE LITE METER) monitoring kit Check sugars 4 times a day DX E11.8 - gabapentin (NEURONTIN) 300 mg capsule Take 300 mg by mouth three times daily. - escitalopram oxalate (LEXAPRO) 10 mg tablet Take 10 mg by mouth once daily. - nicotine (NICODERM) 7 mg/24 hr Apply 1 Patch as directed every 24 hours. - blood sugar diagnostic (FREESTYLE TEST) test strip Check sugars 4 times/d. Use as directed. - insulin needles, DISPOSABLE, (UNIFINE PENTIPS) 31 gauge x 5/16 ndle Use with insulin injections - ondansetron orally disintegrating (ZOFRAN ODT) 4 mg disintegrating tablet Take 1 tablet by mouth every 6 hours as needed. - nitroglycerin sublingual (NITROQUICK) 0.4 mg SL tablet Dissolve 1 tablet under the tongue every 5 minutes as needed for Chest Pain for up to 3 doses. - VENTOLIN HFA 90 mcg/actuation inhaler Inhale 2 Puffs as instructed every 4 hours as needed for Wheezing/Shortness of Breath. - insulin glargine (LANTUS SOLOSTAR, BASAGLAR KWIKPEN) 100 unit/mL (3 mL) inpn Inject 40 Units subcutaneously twice daily. - Blood Pressure Monitor (BLOOD PRESSURE KIT) kit 1 Each once daily. - atorvastatin (LIPITOR) 80 mg tablet Take 1 tablet by mouth daily at bedtime. - aspirin, enteric coated (ASPIRIN, ENTERIC COATED) 81 mg EC tablet Take 1 tablet by mouth once daily. Meds Comments as of 03/07/2017: Pt held all medications X 4 days per her [id number]. Problem List As Of Date 10/04/2023 Noted Resolved Abdominal pain, other specified site [R10.9] 10/23/2012 Essential hypertension [I10] 02/20/2017 Pericardial cyst [Q24.8] 02/20/2017 Pericardial effusion [I31.39] 02/20/2017 Depression [F32.A] 02/20/2017 Anxiety [F41.9] 02/20/2017 Right-sided low back pain with right-sided scia*02/20/2017 Type 2 diabetes mellitus with complication, w (more content not included)... Normal [facility] CNPNon 10-02-2023 CNPN Telephone (AGPOB1) ----- TRENTON JACKSON ([id number]) 1970 [facility] Date [facility] During your visit today, we recorded the following information about you: Tenzin Nova Ethel Shah 10/02/2023 12:11 PM Signed ----- Message from Agata Das sent at 10/02/2023 11:16 AM EDT ----- Regarding: Orthopedics / Vrabec Hip: Pain / Post Op Within 90 Day Period Subject Line Format: Orthopedics / [Provider Name or Open AND Body Part] / [Issue] Patient has been identified by name and Date of (Y/N): y Patient: Trenton Seymour Jackson Date of : 1970 Previous Provider Seen: [facility] Body Part(s) Identified: r hip Diagnosis/Reason For Visit: post op Reason for the call/escalation: pt would like to schedule post op care center calling on behave of pt If reason for call/escalation is discharge from ED/ER or Hospital, which facility was the patient seen at: na Was an appointment scheduled (Y/N): n Person calling if other than patient: BRYANT [facility] Return call to if other than patient: bryant Best contact number: [phone] Thank you, Agata Das October 02, 2023 11:16 AM [facility] Ethel Shah 10/03/2023 11:29 AM Signed Left message for Bryant - Dr. May does not want to schedule a follow up appointment at this time. He would like an update of her wound since she has started the antibiotic. If it has not changed, gotten better or is worse - he would like her taken to the [place] Emergency [facility] for a surgical consult. Left my direct phone number so Bryant can call to let me know status. Thank you Ethel Chongco [facility] Allergies As of Date: 10/02/2023 Noted Allergy Reaction LATEX 01/18/2011 9 - Itching Comments: Red and dry cracking skin Date Reviewed: 09/05/2023 Reviewed by: Arminda Murillo RN - Fully Assessed Reason for Visit: Contact Center Call [1818] Patient Update [4322] PHYSICIAN INSTRUCTIONS [Other] Prescriptions as of 10/03/2023 - acetaminophen (TYLENOL) 325 mg tablet Take 3 tablets by mouth every 6 hours as needed for pain. - polyethylene glycol 3350 17 gram packet Take 1 Packet by mouth once daily. Dissolve dose in 4 - 8 ounces of liquid and take as directed. - senna-docusate (SENNA-S) 8.6-50 mg per tablet Take 1 tablet by mouth two times a day. - nicotine (NICODERM) 7 mg/24 hr Apply 1 Patch as directed once daily. - prochlorperazine (COMPAZINE) 5 mg tablet Take 1 tablet by mouth every 6 hours as needed for nausea/vomiting. - ENTRESTO 24-26 mg tablet Take 1 tablet by mouth two times a day. - spironolactone (ALDACTONE) 50 mg tablet Take 50 mg by mouth once daily. - carvedilol (COREG) 12.5 mg tablet Take 12.5 mg by mouth two times a day. - furosemide (LASIX) 40 mg tablet Take 40 mg by mouth two times a day. - cholecalciferol (VITAMIN D3) 1,000 unit tab tablet Take 1,000 Units by mouth once daily. - clopidogrel (PLAVIX) 75 mg tablet Take 75 mg by mouth once daily. - dapagliflozin propanediol (FARXIGA) 10 mg tablet Take 10 mg by mouth once daily. - pantoprazole DR (PROTONIX) 40 mg tablet Take 40 mg by mouth once daily. - Blood-Glucose Meter (FREESTYLE LITE METER) monitoring kit Check sugars 4 times a day DX E11.8 - gabapentin (NEURONTIN) 300 mg capsule Take 300 mg by mouth three times daily. - escitalopram oxalate (LEXAPRO) 10 mg tablet Take 10 mg by mouth once daily. - nicotine (NICODERM) 7 mg/24 hr Apply 1 Patch as directed every 24 hours. - blood sugar diagnostic (FREESTYLE TEST) test strip Check sugars 4 times/d. Use as directed. - insulin needles, DISPOSABLE, (UNIFINE PENTIPS) 31 gauge x 5/16 ndle Use with insulin injections - ondansetron orally disintegrating (ZOFRAN ODT) 4 mg disintegrating tablet Take 1 tablet by mouth every 6 hours as needed. - nitroglycerin sublingual (NITROQUICK) 0.4 mg SL tablet Dissolve 1 tablet under the tongue every 5 minutes as needed for Chest Pain for up to 3 doses. - VENTOLIN HFA 90 mcg/actuation inhaler Inhale 2 Puffs as instructed every 4 hours as needed for Wheezing/Shortness of Breath. - insulin glargine (LANTUS SOLOSTAR, BASAGLAR KWIKPEN) 100 unit/mL (3 mL) inpn Inject 40 Units subcutaneously twice daily. - Blood Pressure Monitor (BLOOD PRESSURE KIT) kit 1 Each once daily. - atorvastatin (LIPITOR) 80 mg tablet Take 1 tablet by mouth daily at bedtime. - aspirin, enteric coated (ASPIRIN, ENTERIC COATED) 81 mg EC tablet Take 1 tablet by mouth once daily. Meds Comments as of 03/07/2017: Pt held all medications X 4 days per her [id number]. Problem List As Of Date 10/02/2023 Noted Resolved Abdominal pain, other specified site [R10.9] 10/23/2012 Essential hypertension [I10] 02/20/2017 Pericardial cyst [Q24.8] 02/20/2017 Pericardial effusion [I31.39] 02/20 (more content not included)... Normal [facility] Absolute lymphocyte countOrd ered By: Kaylie Trujillo on 10-01-2023 Lymphocytes Auto (Unsp spec) [#/Vol] 1.59 10*3/uL 0.83-4.51 [facility] Automated lymphocyte count a s percentage of total leukocytesOrdered By: Kaylie Trujillo on 10-01-2023 Lymphocytes/100 WBC Auto (Unsp spec) 24.4 % 19-41 [facility] Basophil percentageOrdered B y: Kaylie Trujillo on 10-01-2023 Basophils/100 WBC (Bld) 1.1 % 0-1 [facility] Chloride [Moles/Vol] 108 mmol/L 98-107 [facility] Eosinophils/100 WBC (Bld) 2.6 % 0-5 [facility] Glucose [Mass/Vol] 123 mg/dL 74-106 [facility] Comment on above: Fasting Glucose resu lt from 100 to 125 mg/dL suggests IMPAIRED HOMEOSTASIS per A.D.A. criteria. Hemoglobin (Bld) [Mass/Vol] 11.7 g/dL 12.0-15.0 [facility] Monocytes/100 WBC (Bld) 8.8 % 0-10 [facility] Neutrophils (Bld) [#/Vol] 4.1 10*3/uL 2.0-7.7 [facility] Neutrophils/100 WBC (Bld) 62.6 % 47-70 [facility] Potassium [Moles/Vol] 5.4 mmol/L 3.5-5.1 [facility] Sodium [Moles/Vol] 138 mmol/L 136-145 [facility] WBC (Bld) [#/Vol] 6.5 10*3/uL 4.4-11.0 [facility] CNPNon 10-01-2023 [place] Telephone (AGPOB1) ----- TRENTON JACKSON ([id number]) 1970 [facility] Date Time Provider Department 10/01/23 VRABEC, DIYA WILLIAM AGPOB1 During your visit today, we recorded the following information about you: Arlettedenise ShahEthel 10/01/2023 10:38 AM Signed ----- Message from Diya May MD sent at 09/30/2023 1:53 PM EDT ----- Please get me an update on her status. Also, a new picture of the wound to review. thx Arlettedenise ShahEthel Vikram 10/01/2023 11:05 AM Signed Left message w/Clare. She will have Stephania call me when she is back on the floor with an update on Trenton. All Clare can say is that she knows Trenton is still on the antibiotics. Gave Clare my direct phone #. Thank you Ethel Sue Destinyalfonzo Shah Allergies As of Date: 10/01/2023 Noted Allergy Reaction LATEX 01/18/2011 9 - Itching Comments: Red and dry cracking skin Date Reviewed: 09/05/2023 Reviewed by: Arminda Murillo RN - Fully Assessed Reason for Visit: Patient Update [1234] Prescriptions as of 10/01/2023 - acetaminophen (TYLENOL) 325 mg tablet Take 3 tablets by mouth every 6 hours as needed for pain. - polyethylene glycol 3350 17 gram packet Take 1 Packet by mouth once daily. Dissolve dose in 4 - 8 ounces of liquid and take as directed. - senna-docusate (SENNA-S) 8.6-50 mg per tablet Take 1 tablet by mouth two times a day. - nicotine (NICODERM) 7 mg/24 hr Apply 1 Patch as directed once daily. - prochlorperazine (COMPAZINE) 5 mg tablet Take 1 tablet by mouth every 6 hours as needed for nausea/vomiting. - ENTRESTO 24-26 mg tablet Take 1 tablet by mouth two times a day. - spironolactone (ALDACTONE) 50 mg tablet Take 50 mg by mouth once daily. - carvedilol (COREG) 12.5 mg tablet Take 12.5 mg by mouth two times a day. - furosemide (LASIX) 40 mg tablet Take 40 mg by mouth two times a day. - cholecalciferol (VITAMIN D3) 1,000 unit tab tablet Take 1,000 Units by mouth once daily. - clopidogrel (PLAVIX) 75 mg tablet Take 75 mg by mouth once daily. - dapagliflozin propanediol (FARXIGA) 10 mg tablet Take 10 mg by mouth once daily. - pantoprazole DR (PROTONIX) 40 mg tablet Take 40 mg by mouth once daily. - Blood-Glucose Meter (FREESTYLE LITE METER) monitoring kit Check sugars 4 times a day DX E11.8 - gabapentin (NEURONTIN) 300 mg capsule Take 300 mg by mouth three times daily. - escitalopram oxalate (LEXAPRO) 10 mg tablet Take 10 mg by mouth once daily. - nicotine (NICODERM) 7 mg/24 hr Apply 1 Patch as directed every 24 hours. - blood sugar diagnostic (FREESTYLE TEST) test strip Check sugars 4 times/d. Use as directed. - insulin needles, DISPOSABLE, (UNIFINE PENTIPS) 31 gauge x 5/16 ndle Use with insulin injections - ondansetron orally disintegrating (ZOFRAN ODT) 4 mg disintegrating tablet Take 1 tablet by mouth every 6 hours as needed. - nitroglycerin sublingual (NITROQUICK) 0.4 mg SL tablet Dissolve 1 tablet under the tongue every 5 minutes as needed for Chest Pain for up to 3 doses. - VENTOLIN HFA 90 mcg/actuation inhaler Inhale 2 Puffs as instructed every 4 hours as needed for Wheezing/Shortness of Breath. - insulin glargine (LANTUS SOLOSTAR, BASAGLAR KWIKPEN) 100 unit/mL (3 mL) inpn Inject 40 Units subcutaneously twice daily. - Blood Pressure Monitor (BLOOD PRESSURE KIT) kit 1 Each once daily. - atorvastatin (LIPITOR) 80 mg tablet Take 1 tablet by mouth daily at bedtime. - aspirin, enteric coated (ASPIRIN, ENTERIC COATED) 81 mg EC tablet Take 1 tablet by mouth once daily. Meds Comments as of 03/07/2017: Pt held all medications X 4 days per her [id number]. Problem List As Of Date 10/01/2023 Noted Resolved Abdominal pain, other specified site [R10.9] 10/23/2012 Essential hypertension [I10] 02/20/2017 Pericardial cyst [Q24.8] 02/20/2017 Pericardial effusion [I31.39] 02/20/2017 Depression [F32.A] 02/20/2017 Anxiety [F41.9] 02/20/2017 Right-sided low back pain with right-sided scia*02/20/2017 Type 2 diabetes mellitus with complication, wit*03/07/2017 Chest pain [R07.9] 11/30/2017 Dyslipidemia [E78.5] 11/30/2017 Chest pain at rest [R07.9] 11/30/2017 Cardiomyopathy (HCC) [I42.9] 12/02/2017 Smoker [F17.200] 12/02/2017 Leucocytosis [D72.829] 12/03/2017 Erythrocytosis [D75.1] 12/03/2017 Hypotension [I95.9] 12/03/2017 Unstable angina (HCC) [I20.0] 12/05/2017 Uncontrolled type 2 diabetes mellitus with circ*12/06/2017 Primary hypertension [I10] 12/06/2017 Acute systolic heart failure (HCC) [I50.21] 12/06/2017 Acute diverticulitis [K57.92] 06/08/2018 06/12/2018 Uncontrolled type 2 diabetes mellitus with hype*06/08/2018 Chronic systolic heart failure (HCC) [I50.22] 06/08/2018 Constipation [K59.00] 06/08/2018 06/12/2018 Anxiety and depression [F41.9, F32.A] 06/08/2018 Cannabis use disorder, mild, abuse [F12.10] 07/20/2018 Frailty [ (more content not included)... Normal [facility] Determination of erythrocyte mean corpuscular volume (MCV)Ordered By: Kaylie Trujillo on 10-01-2023 MCV (RBC) [Entitic vol] 86.3 fL 81-99 [facility] Erythrocyte distribution wid th ratioOrdered By: Kaylie Trujillo on 10-01-2023 Erythrocyte distribution width (RBC) [Ratio] 15.9 % 11.6-14.6 [facility] Erythrocyte distribution wid th standard deviationOrdered By: Kaylie Trujillo on 10-01-2023 Erythrocyte distribution width (RBC) [Entitic vol] 50.4 fL 35.1-43.9 [facility] Hematocrit Auto (Bld) [Volum e fraction]Ordered By: Kaylie Trujillo on 10-01-2023 Hematocrit (Bld) [Volume fraction] 37.8 % 37-47 [facility] Immature granulocytes/100 WB C Auto (Bld)Ordered By: Kaylie Trujillo on 10-01-2023 Immature granulocytes/100 WBC (Bld) 0.500 % 0.0-0.9 [facility] Comment on above: IG% - Immature Granu locytes (promyelocytes, myelocytes and metamyelocytes) > 1% indicates that a LEFT SHIFT is Present. Laboratory - Chemistry and C hemistry - challengeOrdered By: Kaylie Trujillo on 10-01-2023 CO2 [Moles/Vol] 27.0 mmol/L 21.0-32.0 [facility] Magnesium [Mass/Vol] 2.6 mg/dL 1.6-2.6 [facility] Urea nitrogen/Creatinine [Mass ratio] 24.1 mg/mg 10-20 [facility] Laboratory - Hematology and Cell countsOrdered By: Kaylie Trujillo on 10-01-2023 MCH (RBC) [Entitic mass] 26.7 pg 27.0-32.0 [facility] MCHC (RBC) [Mass/Vol] 31.0 g/dL 32-36 [facility] Nucleated RBC/100 WBC (Bld) [Ratio] 0 % 0-5 [facility] Platelet mean volume (Bld) [Entitic vol] 9.1 fL 6.2-12.0 [facility] Platelets (Bld) [#/Vol] 218 10*3/uL 150-450 [facility] No Panel InformationOrdered By: Kaylie Trujillo on 10-01-2023 C-Reactive Protein Extended Range 10.40 mg/L 0.0-3.0 [facility] Comment on above: C-Reactive Protein ( CRP) provides useful information for thediagnosis, therapy and monitoring of inflammatory processesand associated diseases. For the evaluation of Relative Riskfor Cardiovascular Disease, a High Sensitivity CRP (HSCRP)should be ordered. Estimated GFR (MDRD) Amer 83 mL/min >60 [facility] Comment on above: GFR Calc Estimated GFR (MDRD) Non-Af Amer 69 mL/min >60 [facility] Comment on above: Non- GFR Calc RBC Auto (Bld) [#/Vol]Ordere d By: Kaylie Trujillo on 10-01-2023 RBC (Bld) [#/Vol] 4.38 10*6/uL 4.2-5.4 [facility] Serum or plasma calcium xiomara urement (mass/volume)Ordered By: Kaylie Trujillo on 10-01-2023 Calcium [Mass/Vol] 9.0 mg/dL 8.5-10.1 [facility] Serum or plasma creatinine m easurement (mass/volume)Ordered By: Kaylie Trujillo on 10-01-2023 Creatinine [Mass/Vol] 0.91 mg/dL 0.55-1.02 [facility] Comment on above: The validity of the calculated GFR & GFRAA in patients over 70 years has not been determined. Clinical correlation is essential. Serum or plasma trough vanco mycin levelOrdered By: Kaylie Trujillo on 10-01-2023 Vancomycin trough [Mass/Vol] 24.8 ug/mL 5.0-15.0 [facility] Comment on above: VANCOMYCIN STANDARED DRUG THERAPY TROUGH LEVEL: 5.0 - 15.0 mg/L VANCOMYCIN HIGH INTENSITY THERAPY TROUGH LEVEL: 15.0 - 20.0 mg/L High Intensity therapy recommended for serious lifethreatening infections include:- Jghbjiyacn-Lldkggmjftsd-Dqkattjxw (Ventilator/Healtcare Associated)-Sepsis PLEASE CONTACT PHARMACY SERVICES (#[id number]) FOR INTERPRETATIONOF RESULTS. Serum or plasma urea nitroge n measurement (mass/volume)Ordered By: Kaylie Trujillo on 10-01-2023 Urea nitrogen [Mass/Vol] 22 mg/dL 7-18 [facility] Thin prep Papanicolaou smear with manual screeningOrdered By: Kaylie Trujillo on 10-01-2023 Thin prep Papanicolaou smear with manual screening 3 5-15 [facility] Serum or plasma trough vanco mycin levelOrdered By: Kaylie Trujillo on 09-29-2023 Vancomycin trough [Mass/Vol] 17.3 ug/mL 5.0-15.0 [facility] Comment on above: VANCOMYCIN STANDARED DRUG THERAPY TROUGH LEVEL: 5.0 - 15.0 mg/L VANCOMYCIN HIGH INTENSITY THERAPY TROUGH LEVEL: 15.0 - 20.0 mg/L High Intensity therapy recommended for serious lifethreatening infections include:- Pnuhbsmzcl-Iegiujihplbd-Qzymygqnw (Ventilator/Healtcare Associated)-Sepsis PLEASE CONTACT PHARMACY SERVICES (#[id number]) FOR INTERPRETATIONOF RESULTS. Adriana 09-27-2023 CNPN Telephone (AGPOB1) ----- TRENTON JACKSON ([id number]) 1970 [facility] Date Time Provider Department 09/27/23 [facility] During your visit today, we recorded the following information about you: Ethel Alonso 09/27/2023 3:54 PM Signed Received message from Stephania at [facility] stating Trenton is forming an abscess the size of a golf ball at the lower part of her incision and would like to know what Dr. May would like them to do. I called Stephania and she gave a bit more info. The abscess is under the the lower part of the incision. It looks like its going to a large pimple. Dr. May said she can see a local orthopedic since she is in [place]. Dr. Posadas - [phone] He would like if the facility could send a picture of the incision and to start her on Doxycycline 100mg BID. Called Stephania with instructions and Dr. Posadas' phone number. Thank you Ethel Schultz Ppg Allergies As of Date: 09/27/2023 Noted Allergy Reaction LATEX 01/18/2011 9 - Itching Comments: Red and dry cracking skin Date Reviewed: 09/05/2023 Reviewed by: Arminda Murillo, CHAYITO - Fully Assessed Reason for Visit: Patient Question [7777] Abscess [1744] Prescriptions as of 09/27/2023 - acetaminophen (TYLENOL) 325 mg tablet Take 3 tablets by mouth every 6 hours as needed for pain. - polyethylene glycol 3350 17 gram packet Take 1 Packet by mouth once daily. Dissolve dose in 4 - 8 ounces of liquid and take as directed. - senna-docusate (SENNA-S) 8.6-50 mg per tablet Take 1 tablet by mouth two times a day. - nicotine (NICODERM) 7 mg/24 hr Apply 1 Patch as directed once daily. - prochlorperazine (COMPAZINE) 5 mg tablet Take 1 tablet by mouth every 6 hours as needed for nausea/vomiting. - ENTRESTO 24-26 mg tablet Take 1 tablet by mouth two times a day. - spironolactone (ALDACTONE) 50 mg tablet Take 50 mg by mouth once daily. - carvedilol (COREG) 12.5 mg tablet Take 12.5 mg by mouth two times a day. - furosemide (LASIX) 40 mg tablet Take 40 mg by mouth two times a day. - cholecalciferol (VITAMIN D3) 1,000 unit tab tablet Take 1,000 Units by mouth once daily. - clopidogrel (PLAVIX) 75 mg tablet Take 75 mg by mouth once daily. - dapagliflozin propanediol (FARXIGA) 10 mg tablet Take 10 mg by mouth once daily. - pantoprazole DR (PROTONIX) 40 mg tablet Take 40 mg by mouth once daily. - Blood-Glucose Meter (FREESTYLE LITE METER) monitoring kit Check sugars 4 times a day DX E11.8 - gabapentin (NEURONTIN) 300 mg capsule Take 300 mg by mouth three times daily. - escitalopram oxalate (LEXAPRO) 10 mg tablet Take 10 mg by mouth once daily. - nicotine (NICODERM) 7 mg/24 hr Apply 1 Patch as directed every 24 hours. - blood sugar diagnostic (FREESTYLE TEST) test strip Check sugars 4 times/d. Use as directed. - insulin needles, DISPOSABLE, (UNIFINE PENTIPS) 31 gauge x 5/16 ndle Use with insulin injections - ondansetron orally disintegrating (ZOFRAN ODT) 4 mg disintegrating tablet Take 1 tablet by mouth every 6 hours as needed. - nitroglycerin sublingual (NITROQUICK) 0.4 mg SL tablet Dissolve 1 tablet under the tongue every 5 minutes as needed for Chest Pain for up to 3 doses. - VENTOLIN HFA 90 mcg/actuation inhaler Inhale 2 Puffs as instructed every 4 hours as needed for Wheezing/Shortness of Breath. - insulin glargine (LANTUS SOLOSTAR, BASAGLAR KWIKPEN) 100 unit/mL (3 mL) inpn Inject 40 Units subcutaneously twice daily. - Blood Pressure Monitor (BLOOD PRESSURE KIT) kit 1 Each once daily. - atorvastatin (LIPITOR) 80 mg tablet Take 1 tablet by mouth daily at bedtime. - aspirin, enteric coated (ASPIRIN, ENTERIC COATED) 81 mg EC tablet Take 1 tablet by mouth once daily. Meds Comments as of 03/07/2017: Pt held all medications X 4 days per her [id number]. Problem List As Of Date 09/27/2023 Noted Resolved Abdominal pain, other specified site [R10.9] 10/23/2012 Essential hypertension [I10] 02/20/2017 Pericardial cyst [Q24.8] 02/20/2017 Pericardial effusion [I31.39] 02/20/2017 Depression [F32.A] 02/20/2017 Anxiety [F41.9] 02/20/2017 Right-sided low back pain with right-sided scia*02/20/2017 Type 2 diabetes mellitus with complication, wit*03/07/2017 Chest pain [R07.9] 11/30/2017 Dyslipidemia [E78.5] 11/30/2017 Chest pain at rest [R07.9] 11/30/2017 Cardiomyopathy (HCC) [I42.9] 12/02/2017 Smoker [F17.200] 12/02/2017 Leucocytosis [D72.829] 12/03/2017 Erythrocytosis [D75.1] 12/03/2017 Hypotension [I95.9] 12/03/2017 Unstable angina (HCC) [I20.0] 12/05/2017 Uncontrolled type 2 diabetes mellitus with circ*12/06/2017 Primary hypertension [I10] 12/06/2017 Acute systolic heart failure (HCC) [I50.21] 12/06/2017 Acute diverticulitis [K57.92] 06/08/2018 06/12/2018 Uncontrolled type 2 diabetes mellitus with hype*06/08/2018 Chronic systo (more content not included)... Normal [facility] Absolute lymphocyte countOrd ered By: Kaylie Trujillo on 09-24-2023 Lymphocytes Auto (Unsp spec) [#/Vol] 1.63 10*3/uL 0.83-4.51 [facility] Automated lymphocyte count a s percentage of total leukocytesOrdered By: Kaylie Trujillo on 09-24-2023 Lymphocytes/100 WBC Auto (Unsp spec) 21.3 % 19-41 [facility] Basophil percentageOrdered B y: Kaylie Trujillo on 09-24-2023 Basophils/100 WBC (Bld) 1.0 % 0-1 [facility] Chloride [Moles/Vol] 99 mmol/L 98-107 [facility] Eosinophils/100 WBC (Bld) 2.1 % 0-5 [facility] Glucose [Mass/Vol] 166 mg/dL 74-106 [facility] Comment on above: Fasting Glucose resu lt greater than or equal to 126 mg/dL suggests DIABETES MELLITUS per A.D.A. criteria. Hemoglobin (Bld) [Mass/Vol] 11.8 g/dL 12.0-15.0 [facility] Monocytes/100 WBC (Bld) 9.3 % 0-10 [facility] Neutrophils (Bld) [#/Vol] 5.1 10*3/uL 2.0-7.7 [facility] Neutrophils/100 WBC (Bld) 65.9 % 47-70 [facility] Potassium [Moles/Vol] 4.8 mmol/L 3.5-5.1 [facility] Sodium [Moles/Vol] 134 mmol/L 136-145 [facility] WBC (Bld) [#/Vol] 7.7 10*3/uL 4.4-11.0 [facility] Determination of erythrocyte mean corpuscular volume (MCV)Ordered By: Kaylie Trujillo on 09-24-2023 MCV (RBC) [Entitic vol] 84.3 fL 81-99 [facility] Erythrocyte distribution wid th ratioOrdered By: Kaylieoskar Trujillo on 09-24-2023 Erythrocyte distribution width (RBC) [Ratio] 15.5 % 11.6-14.6 [facility] Erythrocyte distribution wid th standard deviationOrdered By: Kaylie Trujillo on 09-24-2023 Erythrocyte distribution width (RBC) [Entitic vol] 46.9 fL 35.1-43.9 [facility] Hematocrit Auto (Bld) [Volum e fraction]Ordered By: Kaylie Trujillo on 09-24-2023 Hematocrit (Bld) [Volume fraction] 37.7 % 37-47 [facility] Immature granulocytes/100 WB C Auto (Bld)Ordered By: Kaylie Trujillo on 09-24-2023 Immature granulocytes/100 WBC (Bld) 0.400 % 0.0-0.9 [facility] Comment on above: IG% - Immature Granu locytes (promyelocytes, myelocytes and metamyelocytes) > 1% indicates that a LEFT SHIFT is Present. Laboratory - Chemistry and C hemistry - challengeOrdered By: Kaylie Trujillo on 09-24-2023 CO2 [Moles/Vol] 29.0 mmol/L 21.0-32.0 [facility] Magnesium [Mass/Vol] 2.8 mg/dL 1.6-2.6 [facility] Urea nitrogen/Creatinine [Mass ratio] 38.8 mg/mg 10-20 [facility] Laboratory - Hematology and Cell countsOrdered By: Kaylie Trujillo on 09-24-2023 MCH (RBC) [Entitic mass] 26.4 pg 27.0-32.0 [facility] MCHC (RBC) [Mass/Vol] 31.3 g/dL 32-36 [facility] Nucleated RBC/100 WBC (Bld) [Ratio] 0 % 0-5 [facility] Platelet mean volume (Bld) [Entitic vol] 9.4 fL 6.2-12.0 [facility] Platelets (Bld) [#/Vol] 316 10*3/uL 150-450 [facility] No Panel InformationOrdered By: Kaylie Trujillo on 09-24-2023 Estimated GFR (MDRD) Amer 82 mL/min >60 [facility] Comment on above: GFR Calc Estimated GFR (MDRD) Non-Af Amer 67 mL/min >60 [facility] Comment on above: Non- GFR Calc RBC Auto (Bld) [#/Vol]Ordere d By: Kaylie Trujillo on 09-24-2023 RBC (Bld) [#/Vol] 4.47 10*6/uL 4.2-5.4 [facility] Serum or plasma calcium xiomara urement (mass/volume)Ordered By: Kaylie Trujillo on 09-24-2023 Calcium [Mass/Vol] 8.8 mg/dL 8.5-10.1 [facility] Serum or plasma creatinine m easurement (mass/volume)Ordered By: Kaylie Trujillo on 09-24-2023 Creatinine [Mass/Vol] 0.93 mg/dL 0.55-1.02 [facility] Comment on above: The validity of the calculated GFR & GFRAA in patients over 70 years has not been determined. Clinical correlation is essential. Serum or plasma thyroid stim ulating hormone (TSH) measurement (units/volume)Ordered By: Kaylieoskar Trujillo on 09-24-2023 TSH Qn 6.61 uIU/mL 0.358-3.74 [facility] Serum or plasma urea nitroge n measurement (mass/volume)Ordered By: [facility] Ronnie on 09-24-2023 Urea nitrogen [Mass/Vol] 36 mg/dL 7-18 [facility] Thin prep Papanicolaou smear with manual screeningOrdered By: Kaylieoskar Trujillo on 09-24-2023 Thin prep Papanicolaou smear with manual screening 6 5-15 [facility] Absolute lymphocyte countOrd ered By: Kaylieoskar Trujillo on 09-17-2023 Lymphocytes Auto (Unsp spec) [#/Vol] 1.47 10*3/uL 0.83-4.51 [facility] Automated lymphocyte count a s percentage of total leukocytesOrdered By: Kaylie Trujillo on 09-17-2023 Lymphocytes/100 WBC Auto (Unsp spec) 13.5 % 19-41 [facility] Basophil percentageOrdered B y: Kaylie Trujillo on 09-17-2023 Basophils/100 WBC (Bld) 0.9 % 0-1 [facility] Chloride [Moles/Vol] 96 mmol/L 98-107 [facility] Eosinophils/100 WBC (Bld) 1.3 % 0-5 [facility] Glucose [Mass/Vol] 134 mg/dL 74-106 [facility] Comment on above: Fasting Glucose resu lt greater than or equal to 126 mg/dL suggests DIABETES MELLITUS per A.D.A. criteria. Hemoglobin (Bld) [Mass/Vol] 12.8 g/dL 12.0-15.0 [facility] Monocytes/100 WBC (Bld) 5.7 % 0-10 [facility] Neutrophils (Bld) [#/Vol] 8.5 10*3/uL 2.0-7.7 [facility] Neutrophils/100 WBC (Bld) 78.0 % 47-70 [facility] Potassium [Moles/Vol] 4.5 mmol/L 3.5-5.1 [facility] Sodium [Moles/Vol] 133 mmol/L 136-145 [facility] WBC (Bld) [#/Vol] 10.9 10*3/uL 4.4-11.0 [facility] Determination of erythrocyte mean corpuscular volume (MCV)Ordered By: Kaylie Trujillo on 09-17-2023 MCV (RBC) [Entitic vol] 86.0 fL 81-99 [facility] Erythrocyte distribution wid th ratioOrdered By: Kaylie Trujillo on 09-17-2023 Erythrocyte distribution width (RBC) [Ratio] 15.2 % 11.6-14.6 [facility] Erythrocyte distribution wid th standard deviationOrdered By: Kaylie Trujillo on 09-17-2023 Erythrocyte distribution width (RBC) [Entitic vol] 46.5 fL 35.1-43.9 [facility] Hematocrit Auto (Bld) [Volum e fraction]Ordered By: Kaylie Trujillo on 09-17-2023 Hematocrit (Bld) [Volume fraction] 42.9 % 37-47 [facility] Immature granulocytes/100 WB C Auto (Bld)Ordered By: Kaylie Trujillo on 09-17-2023 Immature granulocytes/100 WBC (Bld) 0.600 % 0.0-0.9 [facility] Comment on above: IG% - Immature Granu locytes (promyelocytes, myelocytes and metamyelocytes) > 1% indicates that a LEFT SHIFT is Present. Laboratory - Chemistry and C hemistry - challengeOrdered By: Kaylie Trujillo on 09-17-2023 CO2 [Moles/Vol] 35.0 mmol/L 21.0-32.0 [facility] Magnesium [Mass/Vol] 2.9 mg/dL 1.6-2.6 [facility] Urea nitrogen/Creatinine [Mass ratio] 26.9 mg/mg 10-20 [facility] Laboratory - Hematology and Cell countsOrdered By: Kaylie Trujillo on 09-17-2023 MCH (RBC) [Entitic mass] 25.7 pg 27.0-32.0 [facility] MCHC (RBC) [Mass/Vol] 29.8 g/dL 32-36 [facility] Nucleated RBC/100 WBC (Bld) [Ratio] 0 % 0-5 [facility] Platelet mean volume (Bld) [Entitic vol] 9.6 fL 6.2-12.0 [facility] Platelets (Bld) [#/Vol] 399 10*3/uL 150-450 [facility] No Panel InformationOrdered By: Kaylie Trujillo on 09-17-2023 Estimated GFR (MDRD) Amer 61 mL/min >60 [facility] Comment on above: GFR Calc Estimated GFR (MDRD) Non-Af Amer 51 mL/min >60 [facility] Comment on above: Non- GFR Calc RBC Auto (Bld) [#/Vol]Ordere d By: Kaylie Trujillo on 09-17-2023 RBC (Bld) [#/Vol] 4.99 10*6/uL 4.2-5.4 [facility] Serum or plasma calcium xiomara urement (mass/volume)Ordered By: Kaylie Trujillo on 09-17-2023 Calcium [Mass/Vol] 9.2 mg/dL 8.5-10.1 [facility] Serum or plasma creatinine m easurement (mass/volume)Ordered By: Kaylie Trujillo on 09-17-2023 Creatinine [Mass/Vol] 1.19 mg/dL 0.55-1.02 [facility] Comment on above: The validity of the calculated GFR & GFRAA in patients over 70 years has not been determined. Clinical correlation is essential. Serum or plasma urea nitroge n measurement (mass/volume)Ordered By: Kaylie Trujillo on 09-17-2023 Urea nitrogen [Mass/Vol] 32 mg/dL 7-18 [facility] Thin prep Papanicolaou smear with manual screeningOrdered By: Kaylie Trujillo on 09-17-2023 Thin prep Papanicolaou smear with manual screening 2 10-16 [facility] 09-12-2023 CNPN Telephone (AGPOB1) ----- TRENTON JACKSON ([id number]) 1970 [facility] Date Time Provider Department 09/12/23 DIYA MAY CARLOS During your visit today, we recorded the following information about you: Ethel Alonso 09/12/2023 9:24 AM Signed ----- Message from Evelyne Madsen sent at 09/11/2023 2:07 PM EDT ----- Regarding: Xpuyi-Cssndk-zj follow up post op- hip fracture Subject Line Format: Orthopedics / [Provider Name or Open AND Body Part] / [Issue] Patient has been identified by name and Date of (Y/N): Y Patient: Trenton Jackson Date of : 1970 Previous Provider Seen: VISHAL Body Part(s) Identified: R HIP Diagnosis/Reason For Visit: ER FOLLOW UP POST OP Reason for the call/escalation: ER FOLLOW UP POST OP- HIP FRACTURE If reason for call/escalation is discharge from ED/ER or Hospital, which facility was the patient seen at: [facility] Was an appointment scheduled (Y/N): N/A Person calling if other than patient: REHAB [facility] Return call to if other than patient: REHAB Best contact number: [phone] Thank you, Evelyne Madsen September 11, 2023 2:07 PM Ethel Alonso 09/14/2023 2:38 PM Signed Left a message for Nurse Mgr Bryant Ruiz at the rehab facility ([phone]) that we do not need to schedule an appointment at this time but we would like to have a disc with an x-ray of Trenton's pelvis for review 09/17/23. Thank you Ethel Dave Nova [facility] Allergies As of Date: 09/12/2023 Noted Allergy Reaction LATEX 01/18/2011 9 - Itching Comments: Red and dry cracking skin Date Reviewed: 09/05/2023 Reviewed by: Arminda Murillo RN - Fully Assessed Reason for Visit: Appointment [186] Radiology XR [1491] Prescriptions as of 09/14/2023 - acetaminophen (TYLENOL) 325 mg tablet Take 3 tablets by mouth every 6 hours as needed for pain. - polyethylene glycol 3350 17 gram packet Take 1 Packet by mouth once daily. Dissolve dose in 4 - 8 ounces of liquid and take as directed. - senna-docusate (SENNA-S) 8.6-50 mg per tablet Take 1 tablet by mouth two times a day. - nicotine (NICODERM) 7 mg/24 hr Apply 1 Patch as directed once daily. - prochlorperazine (COMPAZINE) 5 mg tablet Take 1 tablet by mouth every 6 hours as needed for nausea/vomiting. - ENTRESTO 24-26 mg tablet Take 1 tablet by mouth two times a day. - spironolactone (ALDACTONE) 50 mg tablet Take 50 mg by mouth once daily. - carvedilol (COREG) 12.5 mg tablet Take 12.5 mg by mouth two times a day. - furosemide (LASIX) 40 mg tablet Take 40 mg by mouth two times a day. - cholecalciferol (VITAMIN D3) 1,000 unit tab tablet Take 1,000 Units by mouth once daily. - clopidogrel (PLAVIX) 75 mg tablet Take 75 mg by mouth once daily. - dapagliflozin propanediol (FARXIGA) 10 mg tablet Take 10 mg by mouth once daily. - pantoprazole DR (PROTONIX) 40 mg tablet Take 40 mg by mouth once daily. - Blood-Glucose Meter (FREESTYLE LITE METER) monitoring kit Check sugars 4 times a day DX E11.8 - gabapentin (NEURONTIN) 300 mg capsule Take 300 mg by mouth three times daily. - escitalopram oxalate (LEXAPRO) 10 mg tablet Take 10 mg by mouth once daily. - nicotine (NICODERM) 7 mg/24 hr Apply 1 Patch as directed every 24 hours. - blood sugar diagnostic (FREESTYLE TEST) test strip Check sugars 4 times/d. Use as directed. - insulin needles, DISPOSABLE, (UNIFINE PENTIPS) 31 gauge x /16 ndle Use with insulin injections - ondansetron orally disintegrating (ZOFRAN ODT) 4 mg disintegrating tablet Take 1 tablet by mouth every 6 hours as needed. - nitroglycerin sublingual (NITROQUICK) 0.4 mg SL tablet Dissolve 1 tablet under the tongue every 5 minutes as needed for Chest Pain for up to 3 doses. - VENTOLIN HFA 90 mcg/actuation inhaler Inhale 2 Puffs as instructed every 4 hours as needed for Wheezing/Shortness of Breath. - insulin glargine (LANTUS SOLOSTAR, BASAGLAR KWIKPEN) 100 unit/mL (3 mL) inpn Inject 40 Units subcutaneously twice daily. - Blood Pressure Monitor (BLOOD PRESSURE KIT) kit 1 Each once daily. - atorvastatin (LIPITOR) 80 mg tablet Take 1 tablet by mouth daily at bedtime. - aspirin, enteric coated (ASPIRIN, ENTERIC COATED) 81 mg EC tablet Take 1 tablet by mouth once daily. Meds Comments as of 03/07/2017: Pt held all medications X 4 days per her [id number]. Problem List As Of Date 09/12/2023 Noted Resolved Abdominal pain, other specified site [R10.9] 10/23/2012 Essential hypertension [I10] 02/20/2017 Pericardial cyst [Q24.8] 02/20/2017 Pericardial effusion [I31.39] 02/20/2017 Depression [F32.A] 02/20/2017 Anxiety [F41.9] 02/20/2017 Right-sided low back pain with right-sided scia*02/20/2017 Type 2 diabetes mellitus with complication, wit*03/07/2017 Chest pain [R07.9] 11/30/2017 Dysl (more content not included)... Normal [facility] Absolute lymphocyte countOrd ered By: Kaylie Trujillo on 09-10-2023 Lymphocytes Auto (Unsp spec) [#/Vol] 1.61 10*3/uL 0.83-4.51 [facility] Automated lymphocyte count a s percentage of total leukocytesOrdered By: Kaylie Trujillo on 09-10-2023 Lymphocytes/100 WBC Auto (Unsp spec) 25.0 % 19-41 [facility] Basophil percentageOrdered B y: Kaylie Trujillo on 09-10-2023 Basophils/100 WBC (Bld) 0.8 % 0-1 [facility] [facility] Chloride [Moles/Vol] 97 mmol/L 98-107 [facility] Cholesterol [Mass/Vol] 140 mg/dL <200 [facility] Comment on above: <200 mg/dL Desirable 200-240 mg/dL Borderline >240 mg/dL High Risk Eosinophils/100 WBC (Bld) 0.8 % 0-5 [facility] Glucose [Mass/Vol] 150 mg/dL 74-106 [facility] Comment on above: Fasting Glucose resu lt greater than or equal to 126 mg/dL suggests DIABETES MELLITUS per A.D.A. criteria. Hemoglobin (Bld) [Mass/Vol] 11.6 g/dL 12.0-15.0 [facility] Monocytes/100 WBC (Bld) 10.6 % 0-10 [facility] Neutrophils (Bld) [#/Vol] 4.0 10*3/uL 2.0-7.7 [facility] Neutrophils/100 WBC (Bld) 62.3 % 47-70 [facility] Potassium [Moles/Vol] 3.7 mmol/L 3.5-5.1 [facility] Sodium [Moles/Vol] 137 mmol/L 136-145 [facility] Triglyceride [Mass/Vol] 227 mg/dL <199 [facility] Comment on above: The drugs N-Acetylcy steine and Metamizole may falsely depress this assay.Serum Triglycerides Reference Interval Normal <150 mg/dL Borderline high 150 - 199 mg/dL High 200 - 499 mg/dL Very High > or = 500 mg/dL WBC (Bld) [#/Vol] 6.4 10*3/uL 4.4-11.0 [facility] Determination of erythrocyte mean corpuscular volume (MCV)Ordered By: Kaylie Trujillo on 09-10-2023 MCV (RBC) [Entitic vol] 82.4 fL 81-99 [facility] Erythrocyte distribution wid th ratioOrdered By: Kaylie Trujillo on 09-10-2023 Erythrocyte distribution width (RBC) [Ratio] 14.3 % 11.6-14.6 [facility] Erythrocyte distribution wid th standard deviationOrdered By: Kaylie Trujillo on 09-10-2023 Erythrocyte distribution width (RBC) [Entitic vol] 42.5 fL 35.1-43.9 [facility] Hematocrit Auto (Bld) [Volum e fraction]Ordered By: Kaylie Trujillo on 09-10-2023 Hematocrit (Bld) [Volume fraction] 36.6 % 37-47 [facility] Immature granulocytes/100 WB C Auto (Bld)Ordered By: Kaylieoskar Trujillo on 09-10-2023 Immature granulocytes/100 WBC (Bld) 0.500 % 0.0-0.9 [facility] Comment on above: IG% - Immature Granu locytes (promyelocytes, myelocytes and metamyelocytes) > 1% indicates that a LEFT SHIFT is Present. Laboratory - Chemistry and C hemistry - challengeOrdered By: Kaylie Trujillo on 09-10-2023 Cholesterol in HDL [Mass/Vol] 31 mg/dL >40 [facility] Comment on above: The drugs N-Acetylcy steine and Metamizole may falsely depress this assay. Reference Range HDL <40 mg/dL Low HDL Cholesterol HDL >or= 60 mg/dL High HDL Cholesterol Cholesterol in LDL [Mass/Vol] 64 mg/dL 0-130 [facility] CO2 [Moles/Vol] 31.0 mmol/L 21.0-32.0 [facility] Cobalamin (Vitamin B12) [Mass/Vol] 300 pg/mL 211-911 [facility] Magnesium [Mass/Vol] 1.8 mg/dL 1.6-2.6 [facility] Urea nitrogen/Creatinine [Mass ratio] 20.4 mg/mg 10-20 [facility] Laboratory - Hematology and Cell countsOrdered By: Kaylie Trujillo on 09-10-2023 MCH (RBC) [Entitic mass] 26.1 pg 27.0-32.0 [facility] MCHC (RBC) [Mass/Vol] 31.7 g/dL 32-36 [facility] Nucleated RBC/100 WBC (Bld) [Ratio] 0 % 0-5 [facility] Platelet mean volume (Bld) [Entitic vol] 9.8 fL 6.2-12.0 [facility] Platelets (Bld) [#/Vol] 262 10*3/uL 150-450 [facility] No Panel InformationOrdered By: Kaylie Trujillo on 09-10-2023 Estimated GFR (MDRD) Amer 92 mL/min >60 [facility] Comment on above: GFR Calc Estimated GFR (MDRD) Non-Af Amer 76 mL/min >60 [facility] Comment on above: Non- GFR Calc Vitamin D 25-Hydroxy 18.5 ng/mL [facility] Comment on above: Vitamin D 25(OH) Sta tus Range Deficiency <20 ng/mL (50nmol/L) Insufficiency 20 - 30 ng/mL (50 - 75 nmol/L) Sufficiency 30 - 100 ng/mL (75 - 250 nmol/L) Toxicity >100 ng/mL (>250 nmol/L) VLDL Cholesterol 45 mg/dL 5-40 [facility] RBC Auto (Bld) [#/Vol]Ordere d By: Kaylie Trujillo on 09-10-2023 RBC (Bld) [#/Vol] 4.44 10*6/uL 4.2-5.4 [facility] Serum or plasma calcium xiomara urement (mass/volume)Ordered By: Kaylie Trujillo on 09-10-2023 Calcium [Mass/Vol] 8.7 mg/dL 8.5-10.1 [facility] Serum or plasma creatinine m easurement (mass/volume)Ordered By: Kaylie Trujillo on 09-10-2023 Creatinine [Mass/Vol] 0.83 mg/dL 0.55-1.02 [facility] Comment on above: The validity of the calculated GFR & GFRAA in patients over 70 years has not been determined. Clinical correlation is essential. Serum or plasma thyroid stim ulating hormone (TSH) measurement (units/volume)Ordered By: Kaylie Trujillo on 09-10-2023 TSH Qn 5.60 uIU/mL 0.358-3.74 [facility] Serum or plasma urea nitroge n measurement (mass/volume)Ordered By: Kaylie Trujillo on 09-10-2023 Urea nitrogen [Mass/Vol] 17 mg/dL 7-18 [facility] Thin prep Papanicolaou smear with manual screeningOrdered By: Kaylie Trujillo on 09-10-2023 Thin prep Papanicolaou smear with manual screening 9 5-15 [facility] Whole blood hemoglobin A1c/t otal hemoglobin ratio (mass fraction)Ordered By: Kaylie Trujillo on 09-10-2023 HbA1c (Bld) [Mass fraction] 10.8 % 3.8-5.6 [facility] Comment on above: Normal < 5.7 % Predi abetic 5.7 - 6.4 % Diabetic >or= 6.5 % Please note range changes. CASE MANAGEMon 09-07-2023 CASE MANAGEM HNO ID: [id number] Author: JAMESON BARON RN Service: ? Author Type: Registered Nurse Type: Care Mgt Progress Note Filed: 09/07/2023 14:42 Note Text: CARE MANAGEMENT DISCHARGE NOTE SERVICE DATE: September 07, 2023 SERVICE TIME: 2:41 PM Admission Date: 09/02/2023 LOS: 5 days Discharge Arrangement Discharge Arrangement: Penitentiary Facility Services Arranged Provider Name: [facility] Caregiver Assessment Caregiver is ready, willing and able to meet the patient's needs as recommended by the inter-professional team: Yes Name of Caregiver: SNF Transportation Arrangements Transportation Arrangements: Ambulance Transportation Agency and Phone #:: [facility] ( [facility] ) [phone] / [phone] Date of Trip: 09/07/23 Time of Trip: 1700 Type of Service: BLS Non-emergency Is Patient Medicaid Pending?: No Restorative Care Technician Location: [facility] Destination: [facility] Financial Care Management Responsibility: None Handoff Communication: Handoff to: Other Caregiver Other Caregiver Name/Phone: nurse to call report Additional Information: Patient to discharge to [facility]. [facility] transport via cot set up for patient at 5PM. Patient and nurse made aware. Transport folder complete and on the chart. SIGNATURE: Jameson Baron RN PATIENT NAME: Trenton Jackson DATE: September 07, 2023 TIME: 2:41 PM CONTACT #: [phone] Andrea [facility] CARRIEDSdon 09-07-2023 [facility] HNO ID: [id number] Author: FREDA MACEDO MD Service: General Surgery Author Type: Physician Type: Discharge Summary Filed: 09/08/2023 16:03 Note Text: DISCHARGE SUMMARY PATIENT NAME: Trenton Jackson Code Status: Prior Highest Readmission Risk Score: 31 The 30 day readmissions risk score is derived from an internally validated risk model which evaluates patient level characteristics, utilization history, medication orders and lab results up until the day of discharge. Patients with a score of 40 or above are considered highest risk for readmission. Specific patient level drivers will be listed at the bottom of the summary. Admission Information Admission Information ADMIT DATE: 09/02/2023 DISCHARGE DATE: 09/07/2023 MY DOCTORS AND MEDICAL TEAM: [facility] Doctor: Freda Macedo MD Primary Care Provider: [facility] My Medical Team Members: Treatment Team: Attending Provider: Freda Macedo MD Consulting: Jair Gutierrez MD Consulting: Diya May MD MY CONDITION AT DISCHARGE: Stable REASON I WAS IN THE HOSPITAL: Fall SUMMARY OF WHAT HAPPENED WHILE I WAS IN THE HOSPITAL: Ms. Jackson was admitted at [facility] on 09/02/2023 following a fall. She was found to have the following acute traumatic injuries: 1. Right-sided acute comminuted intertrochanteric proximal femur fracture She was evaluated by orthopedic who recommended surgical fixation of her femur fracture, which she underwent on 09/03/2023. She was evaluated by physical and occupational therapy who recommended a Penitentiary Facility for her ongoing recovery. Ms. Jackson will require follow up appointments with orthopedic surgery and her primary care provider. OTHER PROBLEMS/DIAGNOSIS: Principal Problem: Closed displaced intertrochanteric fracture of right femur (HCC) Active Problems: Dyslipidemia Essential hypertension Cardiomyopathy (HCC) Uncontrolled type 2 diabetes mellitus with hyperglycemia, with long-term current use of insulin (HCC) Chronic systolic heart failure (HCC) Anxiety and depression Cannabis use disorder, mild, abuse Coronary artery disease involving rincon coronary artery of rincon heart without angina pectoris Trauma Fall Resolved Problems: * No resolved hospital problems. * OPERATIONS PERFORMED WHILE IN THE HOSPITAL: 09/03/2023 - Right hip CMN (Dr. May) IMPORTANT TEST/PROCEDURES: No procedures performed TEST RESULTS NOT AVAILABLE AT THIS TIME: No pending results Discharge Disposition Discharge Disposition: Penitentiary Facility - Less than 30 Days Activity When You Leave the Hospital May bathe and shower Resume pre-hospital activity Diet Instructions Resume your pre-hospital diet For Pain When You Leave the Hospital Continue taking previously prescribed pain medications as directed If you become constipated, you may use any ramo-ljz-eeyilan treatment such as Milk of Magnesia, Sennakot, Prune Juice, Suppositories, etc. in addition to the stool softener/fiber supplement Use the dispensed medication (see prescription) You should use an lfex-ssg-ptmelal stool softener (Docusate sodium) and/or a fiber supplement (Metamucil, Fiber Con) every day while taking prescribed pain medication Wound/Surgical Site Care Some bleeding from the wound/surgical site can be expected. If excessive, see a doctor at once Wash your hands frequently, especially before touching your incision, after using restroom and before eating You may change your dressing daily beginning on: Mepilex may be removed on 09/11/2023 Call Your Doctor If There is severe pain at the operative site You have a severe headache You have difficulty urinating or pain when urinating You have lightheadedness, fainting, or confusion You have pain with urination, cloudy urine or foul smelling urine Your temperature is greater than 101F Follow Up Appointments Follow-Up Appointment When: In 2 weeks Patient/Parents to call for appointment?: Yes Diya May MD [phone] [address] PCP Requested Referral Follow-Up Appointment Please discuss the following incidental findings with your primary care provider: 1. Similar small and mild prominent mediastinal and hilar lymph nodes considered likely reactive. Appropriate follow-up is recommended as indicated. Similar nodular densities seen in profile with the left major fissure. 2. Small pericardial effusion. 3. Stable left pericardial cyst. 4. Slowly enlarging bilateral adrenal nodules. Consider further characterization with nonemergent dedicated CT adrenal study. 5. Stable hepatic and splenic lesions. When: In 2 weeks Patient/Parents to call for appointment?: [facility] [phone] [facility] [address] [facility] [phone] (more content not included)... Normal [facility] ED PROV NOTEon 09-07-2023 ED PROV NOTE HNO ID: [id number] Author: MIRNA SAHU MD Service: Emergency Medicine Author Type: Physician Type: ED Provider Notes Filed: 10/05/2023 13:37 Note Text: ED Provider Note Patient Name: Trenton Jackson : 1970 SERVICE DATE: 09/02/23 History Patient presents with: Trauma II: T2 transfer for fall with R hip fx This is a 53-year-old female who presents to the ED as a level 2 trauma. Patient reportedly fell in her bathroom. She was seen at [facility] where she was noted to have right hip fracture. 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 Patient is on Xarelto. Patient was placed on 2 L of NC on arrival to the ED via EMS. Patient endorses head trauma, no loss of consciousness. Patient endorsed some shortness of breath with exertion. No chest pain. She reported right hip pain on arrival here. PAST MEDICAL HISTORY Diagnosis Date Chest pain Diabetes mellitus Diverticula of intestine Hyperglycemia 09/23/2018 Hyperlipemia Hypertension Incisional hernia Psychiatric disorder PAST SURGICAL HISTORY Procedure Laterality Date APPENDECTOMY 2007 DELIVERY ONLY , low transverse COLONOSCOPY 2001? DILATION AND CURETTAGE DXAND/THER NONOBSTETRIC 10/17/12 ESOPHAGOGASTRODUODENOSCOP Y TRANSORAL DIAGNOSTIC 02/01/2016 EGD HEART CATHETERIZATION IMPLANT MESH OPN HERNIA RPR/DEBRIDEMENT CLOSURE 10/16/13 LAPAROSCOPY SURG CHOLECYSTECTOMY 1998 Cholecystectomy, lap LIG/TRNSXJ FLP TUBE ABDL/VAG APPR UNI/BI Tubal ligation PAST SURGICAL HISTORY OF 2009 cysy removed from neck REPAIR FIRST ABDOMINAL WALL HERNIA 10/16/13 SIGMOIDOSCOPY FLX DX W/COLLJ SPEC BR/WA IF PFRMD 02/01/2016 Sigmoidoscopy, flexible FAMILY HISTORY Problem Relation Age of Onset Thyroid Mother Graves Diabetes Mother Hypertension Mother Diabetes Maternal Grandmother Diabetes Maternal Uncle Diabetes Maternal Aunt Social History Tobacco Use Smoking status: Every Day Packs/day: 0.50 Years: 27.00 Additional pack years: 0.00 Total pack years: 13.50 Types: Cigarettes Smokeless tobacco: Never Substance and Sexual Activity Alcohol use: No Drug use: Yes Types: Marijuana Comment: ocassionally Sexual activity: Yes Partners: Male control/protection: Tubal Ligation ALLERGIES Allergen Reactions Latex Itching Red and dry cracking skin Review of Systems Constitutional: Negative for diaphoresis and fever. Eyes: Negative for visual disturbance. Respiratory: Positive for shortness of breath. Negative for wheezing. Cardiovascular: Negative for chest pain and palpitations. Gastrointestinal: Negative for abdominal pain, diarrhea, nausea and vomiting. Genitourinary: Negative for dysuria and flank pain. Musculoskeletal: Hip pain Neurological: Negative for syncope, weakness and light-headedness. Psychiatric/Behavioral: Negative for confusion. Physical Exam Vitals BP Pulse Temp Temp src Resp SpO2 Weight Height 09/02/23 1118 09/02/23 1157 09/02/23 1118 09/02/23 1118 09/02/23 1157 09/02/23 1118 09/02/23 1119 09/02/23 1119 122/77 (!) 111 36.8 ?C (98.2 ?F) Oral 17 97 % 72.6 kg (160 lb) 1.626 m (5' 4) Physical Exam Constitutional: General: She is awake. She is not in acute distress. Appearance: She is well-developed. She is not toxic-appearing or diaphoretic. HENT: Head: No raccoon eyes or Hook's sign. Right Ear: No hemotympanum. Left Ear: No hemotympanum. Nose: No nasal deformity. Right Nostril: No septal hematoma. Left Nostril: No septal hematoma. Mouth/Throat: Mouth: No injury. Pharynx: Oropharynx is clear. Neck: Vascular: No JVD. Cardiovascular: Rate and Rhythm: Normal rate and regular rhythm. Pulses: Radial pulses are 2+ on the right side and 2+ on the left side. Dorsalis pedis pulses are 2+ on the right side and 2+ on the left side. Heart sounds: No murmur heard. Pulmonary: Effort: No accessory muscle usage or respiratory distress. Breath sounds: Normal breath sounds. No stridor. Chest: Chest wall: No deformity, tenderness or crepitus. Abdominal: General: There is no distension. Palpations: There is no fluid wave or pulsatile mass. Tenderness: There is no abdominal tenderness. Musculoskeletal: General: No swelling. Right shoulder: No swelling, deformity or tenderness. Normal range of motion. Left shoulder: No swelling, deformity or tenderness. Normal range of motion. Right upper arm: No swelling, deformity or tenderness. Left upper arm: No swelling, deformity or tenderness. Right elbow: No deformity. Normal range of motion. No tenderness. Left elbow: No deformity. Normal range of motion. No tenderness. Right forearm: No deformity or tenderness. Left forearm: No deformity or tenderness. Right wrist: No deformity or tenderness. Normal range of motion. Normal pulse. Left wrist: No deformity or tenderness. Normal ra (more content not included)... Normal [facility] Basic metabolic 2000 panelon 09-06-2023 Anion gap [Moles/Vol] 9 mmol/L Normal 9-18 [facility] Comment on above: Order Comment: Eileeni cecily Type: BLOOD SPECIMEN Ordering Facility: [facility] Address: [address] [place] [address] Performed By: #### 5 8410-2 #### [facility] CLIA [id number] [address] [place] [address] [place] Calcium [Mass/Vol] 8.4 mg/dL Low 8.5-10.2 [facility] Comment on above: Order Comment: Radha tony Type: BLOOD SPECIMEN Ordering Facility: [facility] Address: [address] [place] [address] Performed By: #### 5 8410-2 #### [facility] CLIA [id number] [address] [place] [address] [place] Chloride [Moles/Vol] 97 mmol/L Normal 97-105 [facility] Comment on above: Order Comment: Speci men Type: BLOOD SPECIMEN Ordering Facility: [facility] Address: [address] [place] [address] Performed By: #### 5 8410-2 #### [facility] CLIA [id number] [address] [place] [address] [place] CO2 [Moles/Vol] 29 mmol/L Normal 22-30 [facility] Comment on above: Order Comment: Speckam cecily Type: BLOOD SPECIMEN Ordering Facility: [facility] Address: [address] [place] [address] Performed By: #### 5 8410-2 #### [facility] CLIA [id number] [address] [place] Creatinine [Mass/Vol] 0.69 mg/dL Normal 0.58-0.96 [facility] Comment on above: Order Comment: Eileenkam tony Type: BLOOD SPECIMEN Ordering Facility: [facility] Address: [address] [place] [address] Performed By: #### 5 8410-2 #### [facility] CLIA [id number] [address] Creatinine and Glomerular filtration rate.predicted panel (S/P/Bld) 105 mL/min/1.73m??? Normal >=60 [facility] Comment on above: Order Comment: Eileenkam tony Type: BLOOD SPECIMEN Ordering Facility: [facility] Address: [address] [place] [address] Result Comment: Crissy mated Glomerular Filtration Rate (eGFR) is calculated using the 2020 CKD-EPI creatinine equation. This equation utilizes serum creatinine, sex, and age as parameters. The creatinine assay has traceable calibration to isotope dilution-mass spectrometry. Refer to KDIGO guidelines for clinical interpretation. In patients with unstable renal function, e.g. those with acute kidney injury, the eGFR may not accurately reflect actual GFR. Performed By: #### 5 8410-2 #### [facility] CLIA [id number] [address] [place] Glucose [Mass/Vol] 120 mg/dL High 74-99 [facility] Comment on above: Order Comment: Radha tony Type: BLOOD SPECIMEN Ordering Facility: [facility] Address: [address] [place] [address] Result Comment: The [place] Diabetes Association (ADA) provides guidance for cutoff values for fasting glucose and random glucose. The ADA defines fasting as no caloric intake for at least 8 hours. Fasting plasma glucose results between 100 to 125 mg/dL indicate increased risk for diabetes (prediabetes). Fasting plasma glucose results greater than or equal to 126 mg/dL meet the criteria for diagnosis of diabetes. In the absence of unequivocal hyperglycemia, results should be confirmed by repeat testing. In a patient with classic symptoms of hyperglycemia or hyperglycemic crisis, random plasma glucose results greater than or equal to 200 mg/dL meet the criteria for diagnosis of diabetes. Reference: Standards of Medical Care in Diabetes 2016, [place] [employer]. Diabetes Care. 2016.39(Suppl 1). Performed By: #### 5 8410-2 #### [facility] CLIA [id number] [address] STATES OF [facility] Potassium [Moles/Vol] 3.8 mmol/L Normal 3.7-5.1 [facility] Comment on above: Order Comment: Speci men Type: BLOOD SPECIMEN Ordering Facility: [facility] Address: [address] [place] [address] Performed By: #### 5 8410-2 #### [facility] CLIA [id number] [address] STATES [facility] Sodium [Moles/Vol] 135 mmol/L Low 136-144 [facility] Comment on above: Order Comment: Speci men Type: BLOOD SPECIMEN Ordering Facility: [facility] Address: [address] [place] [address] Performed By: #### 5 8410-2 #### [facility] CLIA [id number] [address] Urea nitrogen [Mass/Vol] 13 mg/dL Normal 7-21 [facility] Comment on above: Order Comment: Speci men Type: BLOOD SPECIMEN Ordering Facility: [facility] Address: [address] [place] [address] Performed By: #### 5 8410-2 #### [facility] CLIA [id number] [address] [place] CBC panel Auto (Bld)on 09-05 Erythrocyte distribution width (RBC) [Ratio] 14.1 % Normal 11.5-15.0 [facility] Comment on above: Order Comment: Speci men Type: BLOOD SPECIMEN Ordering Facility: [facility] Address: [address] [place] [address] Performed By: #### 5 8410-2 #### [facility] CLIA [id number] [address] Hematocrit (Bld) [Volume fraction] 31.4 % Low 36.0-46.0 [facility] Comment on above: Order Comment: Speci men Type: BLOOD SPECIMEN Ordering Facility: [facility] Address: [address] [place] [address] Performed By: #### 5 8410-2 #### [facility] CLIA [id number] [address] OF [facility] Hemoglobin (Bld) [Mass/Vol] 10.1 g/dL Low 11.5-15.5 [facility] Comment on above: Order Comment: Speci men Type: BLOOD SPECIMEN Ordering Facility: [facility] Address: [address] [place] [address] Performed By: #### 5 8410-2 #### [facility] CLIA [id number] [address] MCH (RBC) [Entitic mass] 26.5 pg Normal 26.0-34.0 [facility] Comment on above: Order Comment: Speci men Type: BLOOD SPECIMEN Ordering Facility: [facility] Address: [address] [place] [address] Performed By: #### 5 8410-2 #### [facility] CLIA [id number] [address] [place] MCHC (RBC) [Mass/Vol] 32.2 g/dL Normal 30.5-36.0 [facility] Comment on above: Order Comment: Speci men Type: BLOOD SPECIMEN Ordering Facility: [facility] Address: [address] [place] [address] Performed By: #### 5 8410-2 #### [facility] CLIA [id number] [address] [place] [address] [place] MCV (RBC) [Entitic vol] 82.4 fL Normal 80.0-100.0 [facility] Comment on above: Order Comment: Speci men Type: BLOOD SPECIMEN Ordering Facility: [facility] Address: [address] [place] [address] Performed By: #### 5 8410-2 #### [facility] CLIA [id number] [address] [place] Nucleated RBC (Bld) [#/Vol] 10*3/uL Normal <0.01 [facility] Comment on above: Order Comment: Speci men Type: BLOOD SPECIMEN Ordering Facility: [facility] Address: [address] [place] [address] Performed By: #### 5 8410-2 #### [facility] CLIA [id number] [address] Platelet mean volume (Bld) [Entitic vol] 10.2 fL Normal 9.0-12.7 [facility] Comment on above: Order Comment: Speci men Type: BLOOD SPECIMEN Ordering Facility: [facility] Address: [address] [place] [address] Performed By: #### 5 8410-2 #### [facility] CLIA [id number] [address] Platelets (Bld) [#/Vol] 135 10*3/uL Low 150-400 [facility] Comment on above: Order Comment: Speci men Type: BLOOD SPECIMEN Ordering Facility: [facility] Address: [address] [place] [address] Result Comment: No c lot detected. Performed By: #### 5 8410-2 #### [facility] CLIA [id number] [address] [place] RBC (Bld) [#/Vol] 3.81 10*6/uL Low 3.90-5.20 [facility] Comment on above: Order Comment: Speci men Type: BLOOD SPECIMEN Ordering Facility: [facility] Address: [address] [place] [address] Performed By: #### 5 8410-2 #### [facility] CLIA [id number] 1 [place] [address] [facility] WBC (Bld) [#/Vol] 9.50 10*3/uL Normal 3.70-11.00 [facility] Comment on above: Order Comment: Speci men Type: BLOOD SPECIMEN Ordering Facility: [facility] Address: [facility] [place] [address] Performed By: #### 5 8410-2 #### [facility] CLIA [id number] 1 [place] [address] [facility] THERAPY NTon 09-06-2023 THERAPY NT HNO ID: [id number] Author: EILEEN MACIAS, PT Service: Physical Therapy Author Type: Physical Therapist Type: Therapy (PT/OT/Speech/Resp) Filed: 09/06/2023 13:17 Note Text: Physical Therapy Treatment Summary SERVICE DATE: 09/06/2023 SERVICE TIME: 1030 to 1053 ROOM: [place] [address] PT 6 Clicks Score: 10 DISCHARGE RECOMMENDATIONS Subacute/SNF Recommended Discharge Disposition Comments: patient far below baseline of independent at rollator Recommended Discharge Disposition Due to: Patient requires daily, facility-based rehabilitation from at least one discipline due to:, decline in functional status requiring daily skilled care ASSESSMENT Response to Therapy Interventions: Good Participation in Activities, Pain PRECAUTIONS Fall Risk, Weight Bearing Restrictions Right Lower Extremity Weight Bearing Status: WBAT CURRENT HOSPITAL COURSE fall with R hip fracture, s/p: CMN R femur 09/02 Relevant Past Medical History: DM, HTN, anx/depression HOME LIVING Patient Lives With: Family (daughter and daughter's boyfriend) Assistance Available: Part-Time Entry To Home: Stairs Number Of Stairs Into Home: 1 Number Of Stairs To Bed/Bath: 0 Tub/Shower Type: sponge bathes Equipment Owned: Rollator PRIOR FUNCTIONAL LEVEL Required Assistance Assistance Required With: Transportation 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 SUBJECTIVE Agreeable to PT, reports increased pain this session. Emotional, tearful. THERAPY DIAGNOSIS Reduced mobility-other, Muscle Weakness (generalized), Unsteadiness on feet, Abnormalities of gait and mobility-other, General symptoms and signs-other, Difficulty walking-musculoskeletal TREATMENT INTERVENTIONS Therapeutic Activity (67848), Therapeutic Exercise (02412) Timed Code Treatment (minutes): 23 Skilled Treatment Time (minutes): 23 Therapeutic Exercise (97373) Treatment Minutes: 13 $ Therapeutic Exercise (88231) Billed Units: 1 unit Patient completed right hip fracture protocol (ankle pump, quad set, gluteal set, heel slide, hip abd/add to neutral, short arc quad, hip adductor squeeze) x 10 reps with min/mod amount of assist. Patient reports moderate/severe pain. Patient set up with ice to surgical hip and elevated lower extremity as needed. Therapeutic Activity (26447) Treatment Minutes: 10 $ Therapeutic Activity (31497) Billed Units: 1 unit Rolling for hygiene, positioning for comfort TRAINING AND EDUCATION PROVIDED Anatomy and Impact on Deficits, Bed Mobility, Benefits of In-Hospital Mobility, Exercise Program, Expected Functional Level, Role of Physical Therapy, Positioning THERAPEUTIC SKILLS USED Activity Dosing, Cues for Sequencing/Proper Technique for Activity, Cuing Verbal, Movement Facilitation, Muscle Activation Facilitation, Physical Assist, Postural Alignment Correction FUNCTIONAL STATUS mobility performed during session in bold, other mobility completed during prior session and may no longer be correct or appropriate to complete. Bed Mobility Rolling: Moderate Assistance, Additional Information x multiple trials to both sides for hygiene, pillow between legs for comfort Supine To Sit: Additional Information declines this session due to increased pain Sit to Supine: Moderate Assistance, Additional Information Scooting: Stand By Assistance Transfers Sit To Stand: Moderate Assistance, Additional Information Stand To Sit: Moderate Assistance, Additional Information Bed to Chair Maximal Assistance, Additional Information Bed To Chair Transfer Type: Stand Pivot Bed To Chair Transfer Equipment: Gait Belt Gait Stairs GOALS Able to Perform HEP with: Verbal Cues Only (R hip fx protocol) Transfer Supine to/from Sit with: Contact Guard Assistance Transfer Sit to/from Stand with: Minimal Assistance Ambulate with: Minimal Assistance Distance: 25ft intervals Device: Wheeled Walker Transfer: patient will complete bed to/from chair transfer with min assist Rehab Potential: Good Progress Toward Goals: Progressing as expected PLAN PT Frequency: Once Daily (4-7) Treatment Interventions: Education, Strengthening, Functional Mobility Training, Balance Training, Neuromuscular Re-education SIGNATURE: Eileen Macias PT PATIENT NAME: Trenton Jackson DATE: September 06, 2023 TIME: 1:14 PM Normal [facility] Basic metabolic 2000 panelon 09-05-2023 Anion gap [Moles/Vol] 9 mmol/L Normal 9-18 [facility] Comment on above: Order Comment: Speci men Type: BLOOD SPECIMEN Ordering Facility: [facility] Address: [address] [place] [address] Performed By: #### 2 4321-2 #### [facility] CLIA [id number] [address] [place] [address] [place] Calcium [Mass/Vol] 8.5 mg/dL Normal 8.5-10.2 [facility] Comment on above: Order Comment: Speci men Type: BLOOD SPECIMEN Ordering Facility: [facility] Address: [address] [place] [address] Performed By: #### 2 4321-2 #### [facility] CLIA [id number] [address] [place] [address] [place] Chloride [Moles/Vol] 96 mmol/L Low 97-105 [facility] Comment on above: Order Comment: Speci men Type: BLOOD SPECIMEN Ordering Facility: [facility] Address: [address] [place] [address] Performed By: #### 2 4321-2 #### [facility] CLIA [id number] [address] [place] [address] [place] CO2 [Moles/Vol] 28 mmol/L Normal 22-30 [facility] Comment on above: Order Comment: Speci men Type: BLOOD SPECIMEN Ordering Facility: [facility] Address: [address] [place] [address] Performed By: #### 2 4321-2 #### [facility] CLIA [id number] [address] [place] [address] [place] Creatinine [Mass/Vol] 0.63 mg/dL Normal 0.58-0.96 [facility] Comment on above: Order Comment: Speci men Type: BLOOD SPECIMEN Ordering Facility: [facility] Address: [address] [place] [address] Performed By: #### 2 4321-2 #### [facility] CLIA [id number] [address] [place] [address] [place] Creatinine and Glomerular filtration rate.predicted panel (S/P/Bld) 107 mL/min/1.73m??? Normal >=60 [facility] Comment on above: Order Comment: Radha tony Type: BLOOD SPECIMEN Ordering Facility: [facility] Address: [address] [place] [address] Result Comment: Crissy mated Glomerular Filtration Rate (eGFR) is calculated using the 2020 CKD-EPI creatinine equation. This equation utilizes serum creatinine, sex, and age as parameters. The creatinine assay has traceable calibration to isotope dilution-mass spectrometry. Refer to KDIGO guidelines for clinical interpretation. In patients with unstable renal function, e.g. those with acute kidney injury, the eGFR may not accurately reflect actual GFR. Performed By: #### 2 4321-2 #### [facility] CLIA [id number] [address] [place] [address] [place] Glucose [Mass/Vol] 110 mg/dL High 74-99 [facility] Comment on above: Order Comment: Radha tony Type: BLOOD SPECIMEN Ordering Facility: [facility] Address: [address] [place] [address] Result Comment: The [place] Diabetes [employer] (ADA) provides guidance for cutoff values for fasting glucose and random glucose. The ADA defines fasting as no caloric intake for at least 8 hours. Fasting plasma glucose results between 100 to 125 mg/dL indicate increased risk for diabetes (prediabetes). Fasting plasma glucose results greater than or equal to 126 mg/dL meet the criteria for diagnosis of diabetes. In the absence of unequivocal hyperglycemia, results should be confirmed by repeat testing. In a patient with classic symptoms of hyperglycemia or hyperglycemic crisis, random plasma glucose results greater than or equal to 200 mg/dL meet the criteria for diagnosis of diabetes. Reference: Standards of Medical Care in Diabetes 2016, [place] [employer]. Diabetes Care. 2016.39(Suppl 1). Performed By: #### 2 4321-2 #### [facility] CLIA [id number] [address] [place] [address] [place] Potassium [Moles/Vol] 3.8 mmol/L Normal 3.7-5.1 [facility] Comment on above: Order Comment: Speci men Type: BLOOD SPECIMEN Ordering Facility: [facility] Address: [address] [place] [address] Performed By: #### 2 4321-2 #### [facility] CLIA [id number] [address] STATES OF [facility] Sodium [Moles/Vol] 133 mmol/L Low 136-144 [facility] Comment on above: Order Comment: Speci men Type: BLOOD SPECIMEN Ordering Facility: [facility] Address: [address] [place] [address] Performed By: #### 2 4321-2 #### [facility] CLIA [id number] [address] STATES OF [facility] Urea nitrogen [Mass/Vol] 13 mg/dL Normal 7-21 [facility] Comment on above: Order Comment: Speci men Type: BLOOD SPECIMEN Ordering Facility: [facility] Address: [address] [place] [address] Performed By: #### 2 4321-2 #### [facility] CLIA [id number] [address] STATES OF [facility] CBC panel Auto (Bld)on 09-04 Erythrocyte distribution width (RBC) [Ratio] 14.0 % Normal 11.5-15.0 [facility] Comment on above: Order Comment: Speci men Type: BLOOD SPECIMEN Ordering Facility: [facility] Address: [address] [place] [address] Performed By: #### 5 8410-2 #### [facility] CLIA [id number] [address] Hematocrit (Bld) [Volume fraction] 35.1 % Low 36.0-46.0 [facility] Comment on above: Order Comment: Speci men Type: BLOOD SPECIMEN Ordering Facility: [facility] Address: [address] [place] [address] Performed By: #### 5 8410-2 #### [facility] CLIA [id number] [address] Hemoglobin (Bld) [Mass/Vol] 11.5 g/dL Normal 11.5-15.5 [facility] Comment on above: Order Comment: Speci men Type: BLOOD SPECIMEN Ordering Facility: [facility] Address: [address] [place] [address] Performed By: #### 5 8410-2 #### [facility] CLIA [id number] [address] MCH (RBC) [Entitic mass] 26.7 pg Normal 26.0-34.0 [facility] Comment on above: Order Comment: Speci men Type: BLOOD SPECIMEN Ordering Facility: [facility] Address: [address] [place] [address] Performed By: #### 5 8410-2 #### [facility] CLIA [id number] [address] MCHC (RBC) [Mass/Vol] 32.8 g/dL Normal 30.5-36.0 [facility] Comment on above: Order Comment: Speci men Type: BLOOD SPECIMEN Ordering Facility: [facility] Address: [address] [place] [address] Performed By: #### 5 8410-2 #### [facility] CLIA [id number] [address] MCV (RBC) [Entitic vol] 81.4 fL Normal 80.0-100.0 [facility] Comment on above: Order Comment: Speci men Type: BLOOD SPECIMEN Ordering Facility: [facility] Address: [address] [place] [address] Performed By: #### 5 8410-2 #### [facility] CLIA [id number] [address] Nucleated RBC (Bld) [#/Vol] 10*3/uL Normal <0.01 [facility] Comment on above: Order Comment: Speci men Type: BLOOD SPECIMEN Ordering Facility: [facility] Address: [address] [place] [address] Performed By: #### 5 8410-2 #### [facility] CLIA [id number] [address] Platelet mean volume (Bld) [Entitic vol] 10.5 fL Normal 9.0-12.7 [facility] Comment on above: Order Comment: Speci men Type: BLOOD SPECIMEN Ordering Facility: [facility] Address: [address] [place] [address] Performed By: #### 5 8410-2 #### [facility] CLIA [id number] [address] Platelets (Bld) [#/Vol] 111 10*3/uL Low 150-400 [facility] Comment on above: Order Comment: Speci men Type: BLOOD SPECIMEN Ordering Facility: [facility] Address: [address] [place] [address] Result Comment: No c lot detected. Performed By: #### 5 8410-2 #### [facility] CLIA [id number] [address] RBC (Bld) [#/Vol] 4.31 10*6/uL Normal 3.90-5.20 [facility] Comment on above: Order Comment: Speci men Type: BLOOD SPECIMEN Ordering Facility: [facility] Address: [address] [place] [address] Performed By: #### 5 8410-2 #### [facility] CLIA [id number] [address] [place] WBC (Bld) [#/Vol] 13.47 10*3/uL High 3.70-11.00 [facility] Comment on above: Order Comment: Speci men Type: BLOOD SPECIMEN Ordering Facility: [facility] Address: [address] [place] [address] Performed By: #### 5 8410-2 #### [facility] CLIA [id number] [address] THERAPY NTon 09-05-2023 THERAPY NT HNO ID: [id number] Author: EILEEN MACIAS, PT Service: Physical Therapy Author Type: Physical Therapist Type: Therapy (PT/OT/Speech/Resp) Filed: 09/05/2023 13:25 Note Text: Physical Therapy Treatment Summary SERVICE DATE: 09/05/2023 SERVICE TIME: 1039 to 1102 ROOM: [place] [address] PT 6 Clicks Score: 10 DISCHARGE RECOMMENDATIONS Subacute/SNF Recommended Discharge Disposition Comments: patient far below baseline of independent at rollator Recommended Discharge Disposition Due to: Patient requires daily, facility-based rehabilitation from at least one discipline due to:, decline in functional status requiring daily skilled care ASSESSMENT Response to Therapy Interventions: Good Participation in Activities Patient progressing towards goals. Able to complete hip fracture protocol exercise with overall min assist. Unable to stand at walker but able to stand pivot transfer with max assist. Patient would benefit from additional physical therapy to address deficits, improve strength/balance/mobility . Recommend SNF at discharge. 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 SUBJECTIVE Pleasant and agreeable to PT. THERAPY DIAGNOSIS Reduced mobility-other, Muscle Weakness (generalized), Unsteadiness on feet, Abnormalities of gait and mobility-other, General symptoms and signs-other, Difficulty walking-musculoskeletal TREATMENT INTERVENTIONS Therapeutic Exercise (24157), Therapeutic Activity (08426) Timed Code Treatment (minutes): 23 Skilled Treatment Time (minutes): 23 Therapeutic Exercise (69836) Treatment Minutes: 12 $ Therapeutic Exercise (64885) Billed Units: 1 unit Patient completed right hip fracture protocol (ankle pump, quad set, gluteal set, heel slide, hip abd/add to neutral, short arc quad, long arc quad, hip adductor squeeze) x 10 reps with min amount of assist. Patient reports moderate pain. Patient set up with ice to surgical hip and elevated lower extremity as needed. Therapeutic Activity (60411) Treatment Minutes: 11 $ Therapeutic Activity (70228) Billed Units: 1 unit TRAINING AND EDUCATION PROVIDED Anatomy and Impact on Deficits, Assistive Device Use, Bed Mobility, Benefits of In-Hospital Mobility, Discharge Planning, Falls Prevention, Expected Functional Level, Precautions/Restrictions, Role of Physical Therapy, Sitting Balance, Standing Balance, Transfers THERAPEUTIC SKILLS USED Activity Dosing, Cues for Sequencing/Proper Technique for Activity, Cuing Verbal, Movement Facilitation, Muscle Activation Facilitation, Physical Assist, Postural Alignment Correction FUNCTIONAL STATUS mobility performed during session in bold, other mobility completed during prior session and may no longer be correct or appropriate to complete. Bed Mobility Supine To Sit: Minimal Assistance, Additional Information instructed technique, cues to use BUE to assist, cues to scoot hips Sit to Supine: Moderate Assistance, Additional Information Scooting: Stand By Assistance Transfers Sit To Stand: Moderate Assistance, Additional Information unable to stand at walker with max assist, arm in arm assist at therapist Stand To Sit: Moderate Assistance, Additional Information cues/assist for positioning at surface, reach hands back and sit slowly Bed to Chair Maximal Assistance, Additional Information Bed To Chair Transfer Type: Stand Pivot Bed To Chair Transfer Equipment: Gait Belt unable to initate steps Gait Stairs GOALS Able to Perform HEP with: Verbal Cues Only (R hip fx protocol) Transfer Supine to/from Sit with: Contact Guard Assistance Transfer Sit to/from Stand with: Minimal Assistance Ambulate with: Minimal Assistance Distance: 25ft intervals Device: Wheeled Walker Transfer: patient will complete bed to/from chair transfer with min assist Rehab Potential: Good Progress Toward Goals: Progressing as expected PLAN PT Frequency: Once Daily (4-7) Treatment Interventions: Education, Strengthening, Functional Mobility Training, Balance Training, Neuromuscular Re-education SIGNATURE: Eileen Macias PT PATIENT NAME: Trenton Jackson DATE: September 05, 2023 TIME: 1:23 PM Normal [facility] ANES POSTPROC EVALon 024 ANES POSTPROC EVAL HNO ID: [id number] Author: MOODY HODGE DO Service: Anesthesiology Author Type: Physician Type: Anesthesia Postprocedure Evaluation Filed: 11/02/2023 10:25 Note Text: POST ANESTHESIA EVALUATION NOTE : 1970 Procedure Summary Date: 09/03/23 Room / Location: [facility] 06 / [facility] Anesthesia Start: 1141 Anesthesia Stop: 1332 Procedure: OPEN TX OF INTERTROCHANTERIC FX W/ INTRAMEDULLARY IMPLANT W/ SCREWS (Right: Hip) Diagnosis: Intertrochanteric fracture of femur (HCC) (Intertrochanteric fracture of femur (HCC) [S72.143A]) Surgeons: Diya May MD Responsible Provider: Moody Hodge DO Anesthesia Type: general ASA Status: 3 Anesthesia Type: general Airway Type: ETT Last Vitals Vitals Value Taken Time BP 104/58 09/03/23 1515 Temp 36.2 ?C (97.2 ?F) 09/03/23 1500 HR SpO2 101 09/03/23 1515 Resp 22 09/03/23 1515 SpO2 93 % 09/03/23 1515 Post Anesthesia Patient Status Patient Evaluation: PACU. PACU/ICU Patient Condition: stable. Anticipated Disposition: inpatient floor planned admission. Neurological Status: sleepy but arousable. Pulmonary Status: breathing comfortably on supplemental oxygen Airway Control: returned to baseline unsupported. Cardiovascular Status: stable. Pain Management: clinically adequate Postoperative Hydration: acceptable. Intraoperative Events: no significant anesthesia events Post Operative Nausea/Vomiting Status: no significant post operative nausea or vomiting Recommendation: continue current plan of care. Anesthesia Observations No Documentation SIGNATURE: Moody Hodge DO PATIENT NAME: Trenton Jackson DATE: November 02, 2023 TIME: 10:25 AM CSN: [id number] Normal [facility] Basic metabolic 2000 panelon 09-04-2023 Anion gap [Moles/Vol] 9 mmol/L Normal 9-18 [facility] Comment on above: Order Comment: Speci men Type: BLOOD SPECIMEN Ordering Facility: [facility] Address: [address] [place] [address] Performed By: #### 2 4321-2 #### [facility] CLIA [id number] [address] [place] [address] [place] Calcium [Mass/Vol] 8.5 mg/dL Normal 8.5-10.2 [facility] Comment on above: Order Comment: Speci men Type: BLOOD SPECIMEN Ordering Facility: [facility] Address: [address] [place] [address] Performed By: #### 2 4321-2 #### [facility] CLIA [id number] [address] OF [facility] Chloride [Moles/Vol] 97 mmol/L Normal 97-105 [facility] Comment on above: Order Comment: Speci men Type: BLOOD SPECIMEN Ordering Facility: [facility] Address: [address] [place] [address] Performed By: #### 2 4321-2 #### [facility] CLIA [id number] [address] [place] CO2 [Moles/Vol] 30 mmol/L Normal 22-30 [facility] Comment on above: Order Comment: Speci men Type: BLOOD SPECIMEN Ordering Facility: [facility] Address: [address] [place] [address] Performed By: #### 2 4321-2 #### [facility] CLIA [id number] [address] OF [facility] Creatinine [Mass/Vol] 0.78 mg/dL Normal 0.58-0.96 [facility] Comment on above: Order Comment: Speci men Type: BLOOD SPECIMEN Ordering Facility: [facility] Address: [address] [place] [address] Performed By: #### 2 4321-2 #### [facility] CLIA [id number] [address] Creatinine and Glomerular filtration rate.predicted panel (S/P/Bld) 92 mL/min/1.73m??? Normal >=60 [facility] Comment on above: Order Comment: Speci men Type: BLOOD SPECIMEN Ordering Facility: [facility] Address: [address] [place] [address] Result Comment: Crissy mated Glomerular Filtration Rate (eGFR) is calculated using the 2020 CKD-EPI creatinine equation. This equation utilizes serum creatinine, sex, and age as parameters. The creatinine assay has traceable calibration to isotope dilution-mass spectrometry. Refer to KDIGO guidelines for clinical interpretation. In patients with unstable renal function, e.g. those with acute kidney injury, the eGFR may not accurately reflect actual GFR. Performed By: #### 2 4321-2 #### [facility] CLIA [id number] [address] [place] [address] [place] Glucose [Mass/Vol] 174 mg/dL High 74-99 [facility] Comment on above: Order Comment: Radha tony Type: BLOOD SPECIMEN Ordering Facility: [facility] Address: [address] [place] [address] Result Comment: The [place] Diabetes Association (ADA) provides guidance for cutoff values for fasting glucose and random glucose. The ADA defines fasting as no caloric intake for at least 8 hours. Fasting plasma glucose results between 100 to 125 mg/dL indicate increased risk for diabetes (prediabetes). Fasting plasma glucose results greater than or equal to 126 mg/dL meet the criteria for diagnosis of diabetes. In the absence of unequivocal hyperglycemia, results should be confirmed by repeat testing. In a patient with classic symptoms of hyperglycemia or hyperglycemic crisis, random plasma glucose results greater than or equal to 200 mg/dL meet the criteria for diagnosis of diabetes. Reference: Standards of Medical Care in Diabetes 2016, [place] [employer]. Diabetes Care. 2016.39(Suppl 1). Performed By: #### 2 4321-2 #### [facility] CLIA [id number] [address] [place] [address] [place] Potassium [Moles/Vol] 3.8 mmol/L Normal 3.7-5.1 [facility] Comment on above: Order Comment: Radha tony Type: BLOOD SPECIMEN Ordering Facility: [facility] Address: [address] [place] [address] Performed By: #### 2 4321-2 #### [facility] CLIA [id number] [address] [place] [address] [place] Sodium [Moles/Vol] 136 mmol/L Normal 136-144 [facility] Comment on above: Order Comment: Radha tony Type: BLOOD SPECIMEN Ordering Facility: [facility] Address: [address] [place] [address] Performed By: #### 2 4321-2 #### [facility] CLIA [id number] [address] STATES OF [facility] Urea nitrogen [Mass/Vol] 13 mg/dL Normal 7-21 [facility] Comment on above: Order Comment: Speci men Type: BLOOD SPECIMEN Ordering Facility: [facility] Address: [address] [place] [address] Performed By: #### 2 4321-2 #### [facility] CLIA [id number] [address] OF [facility] CBC panel Auto (Bld)on 09-03 Erythrocyte distribution width (RBC) [Ratio] 14.1 % Normal 11.5-15.0 [facility] Comment on above: Order Comment: Speci men Type: BLOOD SPECIMEN Ordering Facility: [facility] Address: [address] [place] [address] Performed By: #### 2 4321-2 #### [facility] CLIA [id number] [address] Hematocrit (Bld) [Volume fraction] 37.7 % Normal 36.0-46.0 [facility] Comment on above: Order Comment: Speci men Type: BLOOD SPECIMEN Ordering Facility: [facility] Address: [address] [place] [address] Performed By: #### 2 4321-2 #### [facility] CLIA [id number] [address] OF [facility] Hemoglobin (Bld) [Mass/Vol] 12.3 g/dL Normal 11.5-15.5 [facility] Comment on above: Order Comment: Speci men Type: BLOOD SPECIMEN Ordering Facility: [facility] Address: [address] [place] [address] Performed By: #### 2 4321-2 #### [facility] CLIA [id number] [address] MCH (RBC) [Entitic mass] 26.8 pg Normal 26.0-34.0 [facility] Comment on above: Order Comment: Speci men Type: BLOOD SPECIMEN Ordering Facility: [facility] Address: [address] [place] [address] Performed By: #### 2 4321-2 #### [facility] CLIA [id number] [address] MCHC (RBC) [Mass/Vol] 32.6 g/dL Normal 30.5-36.0 [facility] Comment on above: Order Comment: Speci men Type: BLOOD SPECIMEN Ordering Facility: [facility] Address: [address] [place] [address] Performed By: #### 2 4321-2 #### [facility] CLIA [id number] [address] MCV (RBC) [Entitic vol] 82.1 fL Normal 80.0-100.0 [facility] Comment on above: Order Comment: Speci men Type: BLOOD SPECIMEN Ordering Facility: [facility] Address: [address] [place] [address] Performed By: #### 2 4321-2 #### [facility] CLIA [id number] [address] Nucleated RBC (Bld) [#/Vol] 10*3/uL Normal <0.01 [facility] Comment on above: Order Comment: Speci men Type: BLOOD SPECIMEN Ordering Facility: [facility] Address: [address] [place] [address] Performed By: #### 2 4321-2 #### [facility] CLIA [id number] [address] Platelet mean volume (Bld) [Entitic vol] 9.9 fL Normal 9.0-12.7 [facility] Comment on above: Order Comment: Speci men Type: BLOOD SPECIMEN Ordering Facility: [facility] Address: [address] [place] [address] Performed By: #### 2 4321-2 #### [facility] CLIA [id number] [address] [place] Platelets (Bld) [#/Vol] 108 10*3/uL Low 150-400 [facility] Comment on above: Order Comment: Speci men Type: BLOOD SPECIMEN Ordering Facility: [facility] Address: [address] [place] [address] Result Comment: No c lot detected. Performed By: #### 2 4321-2 #### [facility] CLIA [id number] [address] RBC (Bld) [#/Vol] 4.59 10*6/uL Normal 3.90-5.20 [facility] Comment on above: Order Comment: Speci men Type: BLOOD SPECIMEN Ordering Facility: [facility] Address: [address] [place] [address] Performed By: #### 2 4321-2 #### [facility] CLIA [id number] [address] WBC (Bld) [#/Vol] 12.21 10*3/uL High 3.70-11.00 [facility] Comment on above: Order Comment: Speci men Type: BLOOD SPECIMEN Ordering Facility: [facility] Address: [address] [place] [address] Performed By: #### 2 4321-2 #### [facility] CLIA [id number] [address] Comprehensive metabolic 2000 panelon 09-04-2023 Albumin [Mass/Vol] 2.6 g/dL Low 3.9-4.9 [facility] Comment on above: Order Comment: Speci men Type: BLOOD SPECIMEN Ordering Facility: [facility] Address: [address] [place] [address] Performed By: #### 2 4321-2 #### [facility] CLIA [id number] [address] ALP [Catalytic activity/Vol] 92 U/L Normal 34-123 [facility] Comment on above: Order Comment: Speci men Type: BLOOD SPECIMEN Ordering Facility: [facility] Address: [address] [place] [address] Performed By: #### 2 4321-2 #### [facility] CLIA [id number] [address] OF [facility] ALT With P-5'-P [Catalytic activity/Vol] 9 U/L Normal 7-38 [facility] Comment on above: Order Comment: Speci men Type: BLOOD SPECIMEN Ordering Facility: [facility] Address: [address] [place] [address] Performed By: #### 2 4321-2 #### [facility] CLIA [id number] [address] [place] Anion gap [Moles/Vol] 6 mmol/L Low 9-18 [facility] Comment on above: Order Comment: Speci men Type: BLOOD SPECIMEN Ordering Facility: [facility] Address: [address] [place] [address] Performed By: #### 2 4321-2 #### [facility] CLIA [id number] [address] AST With P-5'-P [Catalytic activity/Vol] 13 U/L Normal 13-35 [facility] Comment on above: Order Comment: Speci men Type: BLOOD SPECIMEN Ordering Facility: [facility] Address: [address] [place] [address] Performed By: #### 2 4321-2 #### [facility] CLIA [id number] [address] OF [facility] Bilirubin [Mass/Vol] 0.8 mg/dL Normal 0.2-1.3 [facility] Comment on above: Order Comment: Speci men Type: BLOOD SPECIMEN Ordering Facility: [facility] Address: [address] [place] [address] Performed By: #### 2 4321-2 #### [facility] CLIA [id number] [address] OF [facility] Calcium [Mass/Vol] 8.4 mg/dL Low 8.5-10.2 [facility] Comment on above: Order Comment: Speci men Type: BLOOD SPECIMEN Ordering Facility: [facility] Address: [address] [place] [address] Performed By: #### 2 4321-2 #### [facility] CLIA [id number] [address] [place] Chloride [Moles/Vol] 98 mmol/L Normal 97-105 [facility] Comment on above: Order Comment: Speci men Type: BLOOD SPECIMEN Ordering Facility: [facility] Address: [address] [place] [address] Performed By: #### 2 4321-2 #### [facility] CLIA [id number] [address] [place] CO2 [Moles/Vol] 30 mmol/L Normal 22-30 [facility] Comment on above: Order Comment: Speci men Type: BLOOD SPECIMEN Ordering Facility: [facility] Address: [address] [place] [address] Performed By: #### 2 4321-2 #### [facility] CLIA [id number] [address] [place] [address] OF [facility] Creatinine [Mass/Vol] 0.66 mg/dL Normal 0.58-0.96 [facility] Comment on above: Order Comment: Speci men Type: BLOOD SPECIMEN Ordering Facility: [facility] Address: [address] [place] [address] Performed By: #### 2 4321-2 #### [facility] CLIA [id number] [address] Creatinine and Glomerular filtration rate.predicted panel (S/P/Bld) 106 mL/min/1.73m??? Normal >=60 [facility] Comment on above: Order Comment: Speci men Type: BLOOD SPECIMEN Ordering Facility: [facility] Address: [address] [place] [address] Result Comment: Crissy mated Glomerular Filtration Rate (eGFR) is calculated using the 2020 CKD-EPI creatinine equation. This equation utilizes serum creatinine, sex, and age as parameters. The creatinine assay has traceable calibration to isotope dilution-mass spectrometry. Refer to KDIGO guidelines for clinical interpretation. In patients with unstable renal function, e.g. those with acute kidney injury, the eGFR may not accurately reflect actual GFR. Performed By: #### 2 4321-2 #### [facility] CLIA [id number] [address] [place] [address] [place] Glucose [Mass/Vol] 160 mg/dL High 74-99 [facility] Comment on above: Order Comment: Radha tony Type: BLOOD SPECIMEN Ordering Facility: [facility] Address: [address] [place] [address] Result Comment: The [place] Diabetes Association (ADA) provides guidance for cutoff values for fasting glucose and random glucose. The ADA defines fasting as no caloric intake for at least 8 hours. Fasting plasma glucose results between 100 to 125 mg/dL indicate increased risk for diabetes (prediabetes). Fasting plasma glucose results greater than or equal to 126 mg/dL meet the criteria for diagnosis of diabetes. In the absence of unequivocal hyperglycemia, results should be confirmed by repeat testing. In a patient with classic symptoms of hyperglycemia or hyperglycemic crisis, random plasma glucose results greater than or equal to 200 mg/dL meet the criteria for diagnosis of diabetes. Reference: Standards of Medical Care in Diabetes 2016, [place] [employer]. Diabetes Care. 2016.39(Suppl 1). Performed By: #### 2 4321-2 #### [facility] CLIA [id number] [address] [place] [address] [place] Potassium [Moles/Vol] 3.7 mmol/L Normal 3.7-5.1 [facility] Comment on above: Order Comment: Radha tony Type: BLOOD SPECIMEN Ordering Facility: [facility] Address: [address] [place] [address] Performed By: #### 2 4321-2 #### [facility] CLIA [id number] [address] [place] [address] [place] Protein [Mass/Vol] 5.8 g/dL Low 6.3-8.0 [facility] Comment on above: Order Comment: Radha tony Type: BLOOD SPECIMEN Ordering Facility: [facility] Address: [address] [place] [id number] Performed By: #### 2 4321-2 #### [facility] CLIA [id number] [address] [place] Sodium [Moles/Vol] 134 mmol/L Low 136-144 [facility] Comment on above: Order Comment: Eileeni men Type: BLOOD SPECIMEN Ordering Facility: [facility] Address: [address] [place] [address] Performed By: #### 2 4321-2 #### [facility] CLIA [id number] [address] [place] Urea nitrogen [Mass/Vol] 13 mg/dL Normal 7-21 [facility] Comment on above: Order Comment: Speci men Type: BLOOD SPECIMEN Ordering Facility: [facility] Address: [address] [place] [address] Performed By: #### 2 4321-2 #### [facility] CLIA [id number] [address] HbA1c (Bld)on 09-04-2023 Average glucose Estimated from glycated hemoglobin (Bld) [Mass/Vol] 272 mg/dL Normal [facility] Comment on above: Order Comment: Speci men Type: BLOOD SPECIMEN Ordering Facility: [facility] Address: [address] [place] [address] Result Comment: eAG: (Estimated average glucose) is a calculated value from HgbA1c and is desk representative of the average blood glucose level in the last 2-3 month period. Performed By: #### 2 4321-2 #### [facility] CLIA [id number] [address] OF [facility] HbA1c (Bld) [Mass fraction] 11.1 % High 4.3-5.6 [facility] Comment on above: Order Comment: Eileeni men Type: BLOOD SPECIMEN Ordering Facility: [facility] Address: [address] [place] [address] Result Comment: [place] Diabetes Association guidelines indicate that patients with HgbA1c in the range 5.7-6.4% are at increased risk for development of diabetes, and intervention by lifestyle modification may be beneficial. HgbA1c greater or equal to 6.5% is considered diagnostic of diabetes. Performed By: #### 2 4321-2 #### [facility] CLIA [id number] [address] THERAPY NTon 09-04-2023 THERAPY NT HNO ID: [id number] Author: EILEEN MACIAS, PT Service: Physical Therapy Author Type: Physical Therapist Type: Therapy (PT/OT/Speech/Resp) Filed: 09/04/2023 12:19 Note Text: Physical Therapy Evaluation Summary SERVICE DATE: 09/04/2023 SERVICE TIME: 929 to 952 ROOM: [place] [address] PT 6 Clicks Score: 10 DISCHARGE RECOMMENDATIONS Subacute/SNF Recommended Discharge Disposition Comments: patient far below baseline of independent at rollator Recommended Discharge Disposition Due to: Patient requires daily, facility-based rehabilitation from at least one discipline due to:, decline in functional status requiring daily skilled care ASSESSMENT Response to Therapy Interventions: Good Participation in Activities PRECAUTIONS Fall Risk, Weight Bearing Restrictions Right Lower Extremity Weight Bearing Status: WBAT CURRENT HOSPITAL COURSE fall with R hip fracture, s/p: CMN R femur 09/02 Relevant Past Medical History: DM, HTN, psych HOME LIVING Patient Lives With: Family (daughter and daughter's boyfriend) Assistance Available: Part-Time Entry To Home: Stairs Number Of Stairs Into Home: 1 Number Of Stairs To Bed/Bath: 0 Tub/Shower Type: sponge bathes Equipment Owned: Rollator PRIOR FUNCTIONAL LEVEL Required Assistance Assistance Required With: Transportation 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 SUBJECTIVE Pleasant and agreeable to PT. THERAPY DIAGNOSIS Reduced mobility-other, Muscle Weakness (generalized), Unsteadiness on feet, Abnormalities of gait and mobility-other, General symptoms and signs-other, Difficulty walking-musculoskeletal TREATMENT INTERVENTIONS Evaluation, Therapeutic Activity (20717) Timed Code Treatment (minutes): 8 Skilled Treatment Time (minutes): 23 $ Evaluation-Moderate (96985) Billed Units: 1 unit Therapeutic Activity (30318) Treatment Minutes: 8 $ Therapeutic Activity (13304) Billed Units: 1 unit Instructed weight bearing status. See grid as well as balance and activity tolerance section(s) for functional mobility facilitated and education provided. Education regarding importance of continued and progressive mobility with staff assist. Education on fall prevention. Up with assist only. Oriented to call light. Bed alarm active upon leaving. Educated discharge recommendation/rationale. TRAINING AND EDUCATION PROVIDED Anatomy and Impact on Deficits, Assistive Device Use, Bed Mobility, Benefits of In-Hospital Mobility, Discharge Planning, Falls Prevention, Expected Functional Level, Precautions/Restrictions, Role of Physical Therapy, Sitting Balance, Standing Balance, Transfers THERAPEUTIC SKILLS USED Activity Dosing, Cues for Sequencing/Proper Technique for Activity, Cuing Verbal, Movement Facilitation, Muscle Activation Facilitation, Physical Assist, Postural Alignment Correction FUNCTIONAL STATUS Bed Mobility Sit to Supine: Moderate Assistance, Additional Information assist to lift BLE into be Scooting: Stand By Assistance Transfers Sit To Stand: Moderate Assistance, Additional Information x multiple trials, cues for hand placemnet at walker, assist to lift Stand To Sit: Moderate Assistance, Additional Information cues/assist for positioning at surface, reach hands back and sit slowly Bed to Chair Maximal Assistance, Additional Information Bed To Chair Transfer Type: Stand Pivot Bed To Chair Transfer Equipment: Gait Belt unable to initate steps Gait Stairs ROM Right Lower Extremity ROM Comments: knee/ankle WFL, hip limited by pain Left Lower Extremity ROM Comments: WFL, transmet amputation STRENGTH Right Lower Extremity Strength Comments: (+) quad set and LAQ Left Lower Extremity Strength Comments: 4/5 BALANCE Static Sitting Balance: Good Dynamic Sitting Balance: Fair Static Standing Balance: Fair Dynamic Standing Balance: Poor GOALS Able to Perform HEP with: Verbal Cues Only (R hip fx protocol) Transfer Supine to/from Sit with: Contact Guard Assistance Transfer Sit to/from Stand with: Minimal Assistance Ambulate with: Minimal Assistance Distance: 25ft intervals Device: Wheeled Walker Transfer: patient will complete bed to/from chair transfer with min assist Rehab Potential: Good PLAN PT Frequency: Once Daily (4-7) Treatment Interventions: Education, Strengthening, Functional Mobility Training, Balance Training, Neuromuscular Re-education SIGNATURE: Eileen Macias PT PATIENT NAME: Trenton Jackson DATE: September 04, 2023 TIME: 12:19 PM Normal [facility] THERAPY NT HNO ID: [id number] Author: KEREN CHAN OTR/L Service: Occupational Therapy Author Type: Occupational Therapist Type: Therapy (PT/OT/Speech/Resp) Filed: 09/04/2023 09:28 Note Text: Occupational Therapy Evaluation Summary SERVICE DATE: 09/04/2023 SERVICE TIME: 816 to 845 ROOM: [place] [address] OT 6 Clicks Score: 16 DISCHARGE RECOMMENDATIONS Subacute/SNF Recommended Discharge Disposition Comments: patient not at functional baseline Recommended Discharge Disposition Due to: Patient requires daily, facility-based rehabilitation from at least one discipline due to:, ADL impairment resulting in caregiver dependence, decline in functional status requiring daily skilled care ASSESSMENT Response to Therapy Interventions: Good Participation in Activities PRECAUTIONS Fall Risk, Weight Bearing Restrictions Right Lower Extremity Weight Bearing Status: WBAT CURRENT HOSPITAL COURSE fall with R hip fracture, s/p: CMN R femur 09/02 Relevant Past Medical History: CP, DM, HTN, hernia, psych d/o HOME LIVING Patient Lives With: Family (daugther and daughter's boyfriend) Assistance Available: Part-Time Entry To Home: Stairs Number Of Stairs Into Home: 1 Number Of Stairs To Bed/Bath: 0 Tub/Shower Type: sponge bathes Equipment Owned: Walker- Wheeled PRIOR FUNCTIONAL LEVEL Required Assistance Assistance Required With: Transportation 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 Baseline Cognition: Oriented to self, Oriented to place, Oriented to time, Oriented to situation SUBJECTIVE agreeable to session COGNITION Responsiveness: Alert Follows Commands: 2-step Commands Executive Function Deficits: Safety Awareness THERAPY DIAGNOSIS Reduced mobility-other, Decreased activities of daily living (ADL), Muscle Weakness (generalized), Unsteadiness on feet, General symptoms and signs-other TREATMENT INTERVENTIONS Evaluation, Therapeutic Activity (71755) Timed Code Treatment (minutes): 12 Skilled Treatment Time (minutes): 29 $ Evaluation - Moderate (72627) Billed Units: 1 unit Therapeutic Activity (63656) Treatment Minutes: 12 $ Therapeutic Activity (55817) Billed Units: 1 unit TRAINING AND EDUCATION PROVIDED Assistive Device Use, Bed Mobility, Benefits of In-Hospital Mobility, Discharge Planning, Disease Specific Education, Functional Mobility Involving ADLs, Role of Occupational Therapy, Safety/Judgment, Precautions/Restrictions, Standing Balance to Improve [place] with ADLs/Self-Care, Transfer - Sit to Stand, Transfer - Bed to Chair THERAPEUTIC SKILLS USED Activity Dosing, Cues for Sequencing/Proper Technique for Activity, Cuing Tactile, Cuing Verbal, Cuing Visual, Physical Assist FUNCTIONAL STATUS Activities of Daily Living Assist Level Additional Information Feeding Set Up Grooming Stand By Assistance Bathing Upper Body Minimal Assistance Bathing Lower Body Maximal Assistance Dressing Upper Body Minimal Assistance Dressing Lower Body Maximal Assistance Toileting Maximal Assistance Mobility Assist Level Additional Information Bed Mobility Supine To Sit: Maximal Assistance Step by step direction to move each LE closer to the side of bed while engaging the core in order to sit upright. Increased time provided due to pain. Sit to Stand Maximal Assistance, Additional Information unable to clear hips after 2 attempts. Max cues for sequence and technique. Stand to Sit Maximal Assistance Bed to Chair Maximal Assistance Bed To Chair Transfer Type: Stand Pivot Bed To Chair Transfer Equipment: Gait Belt Step by step direction for sequence. Educated on fall prevention. Instructed patient on the benefit and value of receiving continued OT services at d/c to increased independence with self care and functional transfers. Toilet/Commode Shower Functional Mobility STRENGTH WFL BALANCE Static Standing Balance: Poor Dynamic Standing Balance: Poor GOALS Grooming with: Set Up Upper Body Bathing with: Independent Upper Body Dressing with: Independent Lower Body Bathing with: Independent Lower Body Dressing with: Modified Independent Toilet Hygiene with: Modified Independent Chair Transfer with: Supervision Toilet Transfer with: Minimal Assistance Tolerate (minutes of functional activity): 30 Functional Activity with: Minimal Assistance Demonstrate Competence with Education with: Stand By Assistance (safety/fall prevention) Rehab Potential: Good PLAN OT Frequency: 2 Times Per Week Treatment Interventions: Education, Self Care/Home Management, Energy Conservation Training, Strengthening, Functional Mobility Training, Balance Training Plan for Next Visit: Bathing Training, Dressing Training SIGNATURE: Keren Chan OTR/L PATIENT NAME: Trenton Jackson DATE: September 04, 2023 TIME: 9:26 AM Normal [facility] ANES PRE-OPon 09-03-2023 ANES PRE-OP HNO ID: [id number] Author: MOODY HODGE DO Service: Anesthesiology Author Type: Physician Type: Anesthesia Preprocedure Evaluation Filed: 11/02/2023 10:23 Note Text: ANESTHESIOLOGY DAY OF SURGERY NOTE : 1970 Procedure Information Anesthesia Start Date/Time: 09/03/23 1141 Procedure: OPEN TX OF INTERTROCHANTERIC FX W/ INTRAMEDULLARY IMPLANT W/ SCREWS (Right: Hip) Location: [place] [facility] 06 / [facility] Surgeons: Diya May MD Estimated body mass index is 27.55 kg/m? as calculated from the following: Height as of this encounter: 162.6 cm (5' 4). Weight as of this encounter: 72.8 kg (160 lb 7.9 oz). Most recent hematocrit and potassium results: Hematocrit 36.5 10/18/2023 Potassium 4.2 10/19/2023 Relevant Problems CARDIO (+) Coronary artery disease involving rincon coronary artery of rincon heart without angina pectoris (+) Essential hypertension (+) Primary hypertension (+) Unstable angina (HCC) ENDO (+) Type 2 diabetes mellitus with complication, with long-term current use of insulin (HCC) (+) Uncontrolled type 2 diabetes mellitus with circulatory disorder, with long-term current use of insulin (+) Uncontrolled type 2 diabetes mellitus with hyperglycemia, with long-term current use of insulin (HCC) -RENAL (+) ROBBIE (acute kidney injury) ([facility]) I - PHYSICAL EVALUATION AIRWAY Patient intubated: No. Tracheostomy tube not present Mallampati: II. TM distance: >3 FB. Neck ROM: full ROM without neurological symptoms. Mouth opening: adequate. Short neck: no. Thick neck: no DENTAL Dental findings: teeth intact. Additional exam findings: no II - ANESTHESIA PLAN ASA Score: 3 Anesthetic Plan: general Airway type: ETT The patient is not a current smoker. NPO Status: adequate Beta Linda Monitoring Plan Monitoring plan: standard ASA. Post Procedure Analgesic Plan Postoperative analgesic plan: multimodal analgesia and parenteral or oral opioids. Patient / Surrogate agrees to blood products: blood products not planned Significant changes in the patient condition since the History and Physical, not otherwise documented in primary service progress note: no. Potential Anesthesia issues that may suggest increased risk of complications or contraindication to planned procedure: none. No vitals data found for the desired time range. Facility-Administered Medications as of 09/07/2023 Medication Dose Route Frequency [COMPLETED] vancomycin iv piggyback 1 g in D5W 200 mL (VANCOCIN) 1 g INTRAVENOUS ONCE [COMPLETED] ceFAZolin iv piggyback 2 g in D5W (iso-osmotic) 100 mL (ANCEF) 2 g INTRAVENOUS ONCE [COMPLETED] tranexamic acid (CYKLOKAPRON) in NaCl 0.7% 1,000 mg 100 mL 1,000 mg INTRAVENOUS ONCE [COMPLETED] ondansetron (PF) 4 mg injection (ZOFRAN) 4 mg INTRAVENOUS PRN [COMPLETED] ceFAZolin iv piggyback 2 g in D5W (iso-osmotic) 100 mL (ANCEF) 2 g INTRAVENOUS q 8 HR [COMPLETED] vancomycin iv piggyback 1 g in D5W 200 mL (VANCOCIN) 1 g INTRAVENOUS ONCE [COMPLETED] haloperidol lactate 1 mg short-acting injection (HALDOL) 1 mg INTRAVENOUS ONCE [COMPLETED] ipratropium-albuterol 3 mL nebulizer solution (DUONEB) 3 mL INHALATION ONCE [COMPLETED] fentaNYL 50 mcg/mL injection (SUBLIMAZE) INTRAVENOUS PRN [COMPLETED] HYDROmorphone (PF) 1 mg injection (DILAUDID) 1 mg INTRAVENOUS ONCE Outpatient Medications as of 09/07/2023 Medication Sig dapagliflozin propanediol (FARXIGA) 10 mg tablet Take 10 mg by mouth once daily. acetaminophen (TYLENOL) 325 mg tablet Take 3 tablets by mouth every 6 hours as needed for pain. polyethylene glycol 3350 17 gram packet Take 1 Packet by mouth once daily. Dissolve dose in 4 - 8 ounces of liquid and take as directed. senna-docusate (SENNA-S) 8.6-50 mg per tablet Take 1 tablet by mouth two times a day. nicotine (NICODERM) 7 mg/24 hr Apply 1 Patch as directed once daily. [] oxyCODONE IR (ROXICODONE) 5 mg immediate release tablet Take 1 tablet by mouth every 6 hours as needed for pain for up to 3 days. [] baclofen 5 mg tablet Take 1 tablet by mouth three times a day as needed (spasms and chest wall pain) for up to 3 days. prochlorperazine (COMPAZINE) 5 mg tablet Take 1 tablet by mouth every 6 hours as needed for nausea/vomiting. ENTRESTO 24-26 mg tablet Take 1 tablet by mouth two times a day. spironolactone (ALDACTONE) 50 mg tablet Take 50 mg by mouth once daily. carvedilol (COREG) 12.5 mg tablet Take 12.5 mg by mouth two times a day. furosemide (LASIX) 40 mg tablet Take 40 mg by mouth two times a day. Blood-Glucose Meter (FREESTYLE LITE METER) monitoring kit Check sugars 4 times a day DX E11.8 gabapentin (NEURONTIN) 300 mg capsule Take 300 mg by mouth three times daily. escitalopram oxalate (LEXAPRO) 10 mg tablet Take 10 mg by mouth once daily. nicotine (NICODERM) 7 mg/24 hr Apply 1 Patch as directed every 24 hours. blood sugar diagnostic (FREESTYLE TEST) test strip Check sugars 4 times (more content not included)... Normal [facility] BRIEF OP NOTon 09-03-2023 BRIEF OP NOT HNO ID: [id number] Author: JUANCARLOS ELDRIDGE MD Service: Orthopaedic Surgery Author Type: Resident Type: Brief Op Note Filed: 09/03/2023 13:25 Note Text: BRIEF OPERATIVE / PROCEDURE NOTE LOG ID: [id number] SURGERY/PROCEDURE DATE: 09/03/2023 INCISION/PROCEDURE START TIME: 12:41 PM INCISION CLOSE/PROCEDURE END TIME: SURGEON(S)/PROCEDURALIST( S) AND TILE SETTER SUPERVISOR(S): Surgeon(s) and Role: * Diya May MD - Primary * Juancarlos Eldridge MD - Resident - Assisting * Jerry Murray MD - Resident - Assisting No Additional Staff SURGERY/PROCEDURE(S): Insertion CMN right femur ANESTHESIA: Choice - Anesthesia Consult FINDINGS: See OP note ESTIMATED BLOOD LOSS: 100 mls ANTIBIOTICS: Ancef/Vanc SPECIMENS: None COMPLICATIONS: None PRE-OP/PRE-PROCEDURE DIAGNOSIS: Right intertrochanteric femur fracture POST-OP/POST-PROCEDURE DIAGNOSIS: Same Post-Operative Plan: -management per Trauma -dressing/splints status: Mepilex x 7-10 days -WBAT RLE -pain control -diet: advance as tolerated -DVT ppx: Resume home ASA/Plavix, recommend -post-operative antibiotics: Ancef x 2 doses, Vanc x 1 dose -follow-up post-operative imaging -PT/OT -disposition: per primary Jasper Eldridge MD Orthopaedic Surgery 09/03/2023 1:21 PM Normal [facility] Basic metabolic 2000 panelon 09-03-2023 Anion gap [Moles/Vol] 7 mmol/L Low 9-18 [facility] Comment on above: Order Comment: Speci men Type: BLOOD SPECIMEN Ordering Facility: [facility] Address: [address] [place] [id number] Performed By: #### 5 8410-2 #### [facility] CLIA [id number] [address] [place] [address] [place] Calcium [Mass/Vol] 8.8 mg/dL Normal 8.5-10.2 [facility] Comment on above: Order Comment: Speci men Type: BLOOD SPECIMEN Ordering Facility: [facility] Address: [address] [place] [address] Performed By: #### 5 8410-2 #### [facility] CLIA [id number] [address] [place] Chloride [Moles/Vol] 99 mmol/L Normal 97-105 [facility] Comment on above: Order Comment: Speci men Type: BLOOD SPECIMEN Ordering Facility: [facility] Address: [address] [place] [address] Performed By: #### 5 8410-2 #### [facility] CLIA [id number] [address] [place] CO2 [Moles/Vol] 32 mmol/L High 22-30 [facility] Comment on above: Order Comment: Speci men Type: BLOOD SPECIMEN Ordering Facility: [facility] Address: [address] [place] [address] Performed By: #### 5 8410-2 #### [facility] CLIA [id number] [address] [place] Creatinine [Mass/Vol] 0.56 mg/dL Low 0.58-0.96 [facility] Comment on above: Order Comment: Speci men Type: BLOOD SPECIMEN Ordering Facility: [facility] Address: [address] [place] [address] Performed By: #### 5 8410-2 #### [facility] CLIA [id number] [address] [place] Creatinine and Glomerular filtration rate.predicted panel (S/P/Bld) 110 mL/min/1.73m??? Normal >=60 [facility] Comment on above: Order Comment: Speci men Type: BLOOD SPECIMEN Ordering Facility: [facility] Address: [address] [place] [address] Result Comment: Crissy mated Glomerular Filtration Rate (eGFR) is calculated using the 2020 CKD-EPI creatinine equation. This equation utilizes serum creatinine, sex, and age as parameters. The creatinine assay has traceable calibration to isotope dilution-mass spectrometry. Refer to KDIGO guidelines for clinical interpretation. In patients with unstable renal function, e.g. those with acute kidney injury, the eGFR may not accurately reflect actual GFR. Performed By: #### 5 8410-2 #### [facility] CLIA [id number] [address] [place] [address] [place] Glucose [Mass/Vol] 130 mg/dL High 74-99 [facility] Comment on above: Order Comment: Speci men Type: BLOOD SPECIMEN Ordering Facility: [facility] Address: [address] [place] [address] Result Comment: The [place] Diabetes [employer] (ADA) provides guidance for cutoff values for fasting glucose and random glucose. The ADA defines fasting as no caloric intake for at least 8 hours. Fasting plasma glucose results between 100 to 125 mg/dL indicate increased risk for diabetes (prediabetes). Fasting plasma glucose results greater than or equal to 126 mg/dL meet the criteria for diagnosis of diabetes. In the absence of unequivocal hyperglycemia, results should be confirmed by repeat testing. In a patient with classic symptoms of hyperglycemia or hyperglycemic crisis, random plasma glucose results greater than or equal to 200 mg/dL meet the criteria for diagnosis of diabetes. Reference: Standards of Medical Care in Diabetes 2016, [place] [employer]. Diabetes Care. 2016.39(Suppl 1). Performed By: #### 5 8410-2 #### [facility] CLIA [id number] [address] [place] Potassium [Moles/Vol] 3.5 mmol/L Low 3.7-5.1 [facility] Comment on above: Order Comment: Speci men Type: BLOOD SPECIMEN Ordering Facility: [facility] Address: [address] [id number] Performed By: #### 5 8410-2 #### [facility] CLIA [id number] [address] [place] [address] [place] Sodium [Moles/Vol] 138 mmol/L Normal 136-144 [facility] Comment on above: Order Comment: Speci men Type: BLOOD SPECIMEN Ordering Facility: [facility] Address: [address] [place] [address] Performed By: #### 5 8410-2 #### [facility] CLIA [id number] [address] Urea nitrogen [Mass/Vol] 6 mg/dL Low 7-21 [facility] Comment on above: Order Comment: Speci men Type: BLOOD SPECIMEN Ordering Facility: [facility] Address: [address] [place] [address] Performed By: #### 5 8410-2 #### [facility] CLIA [id number] [address] CBC panel Auto (Bld)on 09-02 Erythrocyte distribution width (RBC) [Ratio] 13.6 % Normal 11.5-15.0 [facility] Comment on above: Order Comment: Speci men Type: BLOOD SPECIMEN Ordering Facility: [facility] Address: [address] [place] [address] Performed By: #### 5 8410-2 #### [facility] CLIA [id number] [address] Hematocrit (Bld) [Volume fraction] 39.4 % Normal 36.0-46.0 [facility] Comment on above: Order Comment: Speci men Type: BLOOD SPECIMEN Ordering Facility: [facility] Address: [address] [place] [address] Performed By: #### 5 8410-2 #### [facility] CLIA [id number] [address] Hemoglobin (Bld) [Mass/Vol] 13.2 g/dL Normal 11.5-15.5 [facility] Comment on above: Order Comment: Speci men Type: BLOOD SPECIMEN Ordering Facility: [facility] Address: [address] [place] [address] Performed By: #### 5 8410-2 #### [facility] CLIA [id number] [address] MCH (RBC) [Entitic mass] 26.6 pg Normal 26.0-34.0 [facility] Comment on above: Order Comment: Speci men Type: BLOOD SPECIMEN Ordering Facility: [facility] Address: [address] [place] [address] Performed By: #### 5 8410-2 #### [facility] CLIA [id number] [address] MCHC (RBC) [Mass/Vol] 33.5 g/dL Normal 30.5-36.0 [facility] Comment on above: Order Comment: Speci men Type: BLOOD SPECIMEN Ordering Facility: [facility] Address: [address] [place] [address] Performed By: #### 5 8410-2 #### [facility] CLIA [id number] [address] MCV (RBC) [Entitic vol] 79.4 fL Low 80.0-100.0 [facility] Comment on above: Order Comment: Speci men Type: BLOOD SPECIMEN Ordering Facility: [facility] Address: [address] [place] [address] Performed By: #### 5 8410-2 #### [facility] CLIA [id number] [address] Nucleated RBC (Bld) [#/Vol] 10*3/uL Normal <0.01 [facility] Comment on above: Order Comment: Speci men Type: BLOOD SPECIMEN Ordering Facility: [facility] Address: [address] [place] [address] Performed By: #### 5 8410-2 #### [facility] CLIA [id number] [address] Platelet mean volume (Bld) [Entitic vol] 9.6 fL Normal 9.0-12.7 [facility] Comment on above: Order Comment: Speci men Type: BLOOD SPECIMEN Ordering Facility: [facility] Address: [address] [place] [address] Performed By: #### 5 8410-2 #### [facility] CLIA [id number] [address] Platelets (Bld) [#/Vol] 146 10*3/uL Low 150-400 [facility] Comment on above: Order Comment: Speci men Type: BLOOD SPECIMEN Ordering Facility: [facility] Address: [address] [place] [address] Result Comment: No c lot detected. Performed By: #### 5 8410-2 #### [facility] CLIA [id number] [address] RBC (Bld) [#/Vol] 4.96 10*6/uL Normal 3.90-5.20 [facility] Comment on above: Order Comment: Speci men Type: BLOOD SPECIMEN Ordering Facility: [facility] Address: [address] [place] [address] Performed By: #### 5 8410-2 #### [facility] CLIA [id number] [address] WBC (Bld) [#/Vol] 13.08 10*3/uL High 3.70-11.00 [facility] Comment on above: Order Comment: Speci men Type: BLOOD SPECIMEN Ordering Facility: [facility] Address: [address] [place] [address] Performed By: #### 5 8410-2 #### [facility] CLIA [id number] [address] CONFIRM BLOOD TYPEon 024 ABO O Normal [facility] Comment on above: Order Comment: Speci men Type: BLOOD SPECIMEN Ordering Facility: [facility] Address: [address] [place] [address] Performed By: #### 5 8410-2 #### [facility] CLIA [id number] [address] Rh Nom (Bld) Positive Normal [facility] Comment on above: Order Comment: Speci men Type: BLOOD SPECIMEN Ordering Facility: [facility] Address: [address] [id number] Performed By: #### 5 8410-2 #### [facility] IA [id number] [address] [place] [address] [place] CONSULTon 09-03-2023 CONSULT HNO ID: [id number] Author: NATO RIVERA MD Service: Clinical Cardiology Author Type: Physician Type: Consults Filed: 09/03/2023 10:30 Note Text: Cardiology Consult Note HPI: Ms. Jackson is a 53 year old female with h/o hypertension, poorly controlled diabetes, s/p L toe amputation, provoked PE due to immobility (09/2019, treated with xarelto), HLD, smoker, FMD (Abdomen MRI: There is focal subtle infolding/shelf like prominence of the infrarenal segment. Patent aortic branch vessels, mild focal narrowing of the proximal left renal artery), severe anxiety Prior cardiac hx: - Severe CAD ([facility] showed severe single vessel proximal to mid LAD diffuse disease in [place], sent to [facility] for consideration of high risk PCI vs 1V CABG, felt that most likely due to SCAD, hence treated medically, further work up with abdominal/chest MRI reveal convincing findings of FMD) - Noncardiac/atypical chest pain (in 2019 had chest pain on presentation for hours without troponin leak) - HFrEF, ICM EF 30 to 35% - Chronic LV thrombus (detected in 2018, not seen on 2019) - Pericardial cyst (Chest MRI 2017) Patient presented with fall in her bathroom and was found to have intertrochanteric femur fracture. Prior to this event patient denies any CP or SOB or palpitation. No OT or PND. Patient has not seen cardiology for years but [facility] and managing her heart failure. On lasix 40 mg bid. No weight gain or RONNIE. On DAPT for years. Not on xarelto anymore. Troponin is gradually uptrending 40>50>60 NT proBNP 4000 EKG IVCD QRS 128 ms, no obvious evidence of ischemia, compared to prior EKG 2020, no significant changes. Previous cardiac testing: Echo 09/2019: 1. The left ventricular systolic function is moderately to severely decreased with a 30-35% estimated ejection fraction. 2. LAD distribution and entire septum are abnormal. 3. Spectral Doppler shows a restrictive pattern of left ventricular diastolic filling. 4. Mild to moderate mitral valve regurgitation. Echo 09/2018: - Exam indication: Chest Pain - The left ventricle is normal in size. There is no left ventricular hypertrophy. Left ventricular systolic function is moderately decreased. EF = 30 ? 5% (visual est.) Definity contrast used for endocardial border detection. Grade I left ventricular diastolic dysfunction. There is a LV thrombus in the apex measuring 1.94 x 1.04 cm. - The right ventricle is normal in size. Right ventricular systolic function is low normal. - There are no significant valvular abnormalities. - Exam was compared with the prior CC echocardiographic exam performed on 03/10/2017 (ECHO) [facility] 12/2017: 1. Single-vessel coronary artery disease with a long segment of severe diffuse narrowing in the proximal and midportion of the LAD. Another stenosis in the distal portion. 2. Normal right and circumflex coronary arteries. 3. Normal left heart filling pressures. 4. No evidence of aortic stenosis. 5. The patient will be transferred to [facility] for assessment of myocardial viability and consideration of revascularization of the LAD possibly with bypass grafting. MPI 12/2017: Left Ventricle Wall Motion: 1 - The mid and distal anterior wall, mid and distal anterior septum, apical inferior segment, and apex are akinetic. All remaining scored segments are normal. Echo 12/2017: - Technically difficult exam due to body habitus. - Exam indication: Chest Pain - There is a resting wall motion abnormality in the territory of the LAD. - The left ventricle is normal in size. There is no left ventricular hypertrophy. Left ventricular systolic function is moderately decreased. EF = 36 ? 5% (2D biplane) Definity contrast used for endocardial border detection. Grade I left ventricular diastolic dysfunction. - The right ventricle is normal in size. Right ventricular systolic function is normal. - There are no significant valvular abnormalities. - Exam was compared with the prior OUTSIDE echocardiographic Previous pertinent labs: Cholesterol, Total (mg/dL) Date Value 09/24/2018 205 12/07/2017 110 12/01/2017 177 HDL Cholesterol (mg/dL) Date Value 09/24/2018 35 12/07/2017 44 12/01/2017 31 04/07/2015 40 LDL Cholesterol (mg/dL) Date Value 12/07/2017 44 12/01/2017 110 LDL (mg/dL) Date Value 04/07/2015 105 10/10/2012 See below LDL Calculated (mg/dL) Date Value 09/24/2018 120 Triglyceride (mg/dL) Date Value 09/24/2018 252 12/07/2017 108 12/01/2017 179 04/07/2015 128 NT Pro BNP Date Value 09/02/2023 4,315 pg/mL 10/27/2018 1,340.0 pg/ml 10/20/2018 751.0 pg/ml 09/23/2018 2,027 pg/ml 06/08/2018 763 pg/mL THEO High Sensitivity (ng/L) Date Value 09/03/2023 63 09/03/2023 51 09/02/2023 40 12/22/2020 21 11/30/2017 9 11/30/2017 10 Hemoglobin A1C (%) Date Value 09/23/2018 11.6 07/20/2018 11.2 06/08/19 (more content not included)... Normal [facility] HIGH SENSITIVITY TROPONIN T (SECOND)on 09-03-2023 Troponin T.cardiac High sensitivity method [Mass/Vol] 51 ng/L High <12 [facility] Comment on above: Order Comment: Radha tony Type: BLOOD SPECIMEN Ordering Facility: [facility] Address: [address] [place] [address] Result Comment: When assessing risk for acute coronary syndromes: In patients undergoing blood draw greater than or equal to 2 hours from symptom onset, with history of very low to moderate risk and non-ischemic ECG, an initial hs-Troponin T less than 12 ng/L AND a 1 hour delta hs-Troponin T less than 3 ng/L should be considered very low risk for 30 day MACE. Performed By: #### L [id number] #### [facility] CLIA [id number] [address] STATES OF [facility] HIGH SENSITIVITY TROPONIN T (THIRD) 3 HRS AFTER INITIALon 09-03-2023 Troponin T.cardiac High sensitivity method [Mass/Vol] 63 ng/L High <12 [facility] Comment on above: Order Comment: Radha tony Type: BLOOD SPECIMEN Ordering Facility: [facility] Address: [address] [place] [address] Result Comment: When assessing risk for acute coronary syndromes: In patients undergoing blood draw greater than or equal to 2 hours from symptom onset, with history of very low to moderate risk and non-ischemic ECG, an initial hs-Troponin T less than 12 ng/L AND a 1 hour delta hs-Troponin T less than 3 ng/L should be considered very low risk for 30 day MACE. Performed By: #### 5 8410-2 #### [facility] CLIA [id number] [address] OPERATIVE NOon 09-03-2023 OPERATIVE NO HNO ID: [id number] Author: DIYA MAY MD Service: Orthopaedic Surgery Author Type: Physician Type: Operative Report Filed: 09/03/2023 17:02 Note Text: OPERATIVE/PROCEDURE REPORT LOG ID: [id number] SURGERY/PROCEDURE DATE: 09/03/2023 INCISION/PROCEDURE START TIME: 12:41 PM INCISION CLOSE/PROCEDURE END TIME: 1:21 PM SURGEON(S)/PROCEDURALIST( S) AND TILE SETTER SUPERVISOR(S): Surgeon(s) and Role: * Diya May MD - Primary * Juancarlos Eldridge MD - Resident - Assisting * Jerry Murray MD - Resident - Assisting No Additional Staff PRE-OP/PRE-PROCEDURE DIAGNOSIS: 1) Right intertrochanteric femur fracture POST-OP/POST-PROCEDURE DIAGNOSIS: 1) Same SURGERY/PROCEDURE(S): 1) Insertion of a Right Hip Intramedullary Femoral Nail for an Intertrochanteric Femur Fracture (CPT 12084) ANESTHESIA: 1) Choice - Anesthesia Consult ANTIBIOTICS: 1) Ancef 2g IV Ancef, 1g IV Vancomycin ESTIMATED BLOOD LOSS: 1) 100 CC SPECIMENS: 1) None CLINICAL INDICATIONS: 53 year old female presented to [facility] for evaluation after a fall. The patient was found to have an intertrochanteric fracture of right femur. The risks, limitations, benefits and alternatives to all treatment options including non-operative and operative management of fracture were discussed with the patient. The risks of the operation include, but are not limited to, the risks associated with general anesthesia, infection, bleeding, damage to nearby structures (such as arteries, veins, nerves, muscle, tendons, ligaments), chronic pain, post-traumatic arthritis, malunion, nonunion, deep venous thromboses, pulmonary embolism, hardware failure and the need for future operations. The patient elected to proceed. All questions and concerns were answered and addressed. The informed consent was signed. SURGERY/PROCEDURE DETAILS: The patient was met in the pre-operative holding area on 09/03/2023. A pre-operative huddle was conducted with the surgical team. The patient was identified with two patient identifiers (name and date of ). The patient's operative extremity (right lower extremity) was marked. The pre-operative checklist, including review of the informed consent, was reviewed and agreed upon by all members of the surgical team. The patient was then transferred to the operating room. Endotracheal intubation was performed per anesthesia. The patient was positioned supine on a fracture table with attention to padding of all bony prominences. Reduction maneuvers were performed. XR confirmed adequate reduction. Extremity was prepped and draped. A final time-out was then conducted in accordance with [facility] policy. Incision along hip was performed superior to the greater trochanter and in line with the femoral shaft. Hemostasis was achieved with electrocautery. The deep fascia was incised in line with the incision. The greater trochanter was palpated. A guide pin was inserted to the tip of the greater trochanter. After confirmation of the guide pin trajectory, the guide pin was advanced into the proximal femur under AP and lateral radiographs. An opening reamer was advanced over the guide pin. The guide pin was removed. A long ball-tip guide wire was advanced into the greater trochanter and across the fracture using AP and lateral right femur radiographs. A Synthes 125 degree short 10 mm intramedullary femoral nail was advanced over the long ball-tip guide wire. The nail position was confirmed on AP and lateral radiographs. The long ball-tip guide wire was removed. Through a stab incision to the lateral thigh, a 85 mm cephalomedullary lag screw was inserted across the fracture and femoral neck into the center of the femoral head on AP and lateral right hip radiographs. The fracture was compressed. A distal 34 mm interlocking screw was inserted via a stab incision to the lateral thigh. Final AP and lateral femur radiographs demonstrated acceptable length, alignment and rotation of fracture with acceptable hardware positioning. The patient's incisions were thoroughly irrigated with sterile saline. The deep fascial layer was repaired with interrupted 0 Vicryl sutures. The subcutaneous tissue of all incisions was repaired with interrupted 2-0 Vicryl sutures, followed by running subcuticular 3-0 Monocryl sutures in the skin. The operative extremity was cleansed and sterile dressings were applied (Steri-Strips, Mepilex). The patient was extubated per anesthesia and transferred to PACU in stable condition. Sponge count, wound class classification and verification of the procedure was completed prior to final closure of the surgical incisions. IMPLANTABLE DEVICES: Implant Name Type Inv. Item Serial No. Medicaid Collection Specialist Lot No. LRB No. Used Action NAIL TFN-ADVANCED 125D SHORT GREEN TITANIUM 170MM INTRAMEDULLARY CANNULATED - [id number] Nail NAIL TFN-ADVANCED 125D SHORT GREEN TITANIU (more content not included)... Normal [facility] THERAPY NTon 09-03-2023 THERAPY NT HNO ID: [id number] Author: KEREN CHAN OTR/Gian Service: Occupational Therapy Author Type: Occupational Therapist Type: Therapy (PT/OT/Speech/Resp) Filed: 09/03/2023 07:59 Note Text: OCCUPATIONAL THERAPY MISSED VISIT SERVICE DATE: 09/03/2023 SERVICE TIME: (P) 0759 ROOM: [place] [address] Patient not seen due to (P) Test / Procedure. OR today, will follow. SIGNATURE: LARRY Crocker/Gian PATIENT NAME: Trenton Jackson DATE: September 03, 2023 TIME: 7:59 AM Normal [facility] XR HIP 2V AP/LAT RTon 2023 XR HIP 2V AP/LAT RT * * *Final Report* * * DATE OF EXAM: Sep 03 2023 1:16PM [facility] 5280 - XR HIP 2V AP/LAT RT / PROCEDURE REASON: INSERTION NAIL/KERLINE * * * * Physician Interpretation * * * * EXAM TITLE: XR HIP 2V AP/LAT RT DATE: 09/03/2023 INDICATION: Procedure films for open reduction internal fixation of right intertrochanteric femur fracture. COMPARISON: 09/02/2023 Study consists of 6 images showing realignment of the fracture fragments and placement of intramedullary kerline and femoral neck screw bridging the intertrochanteric femur fracture with distal locking screw. 57 seconds of fluoroscopic time utilized. IMPRESSION: Intraoperative procedure films for open reduction internal fixation right intertrochanteric femur fracture. Concrete Tile Machine Operator: GEORGE Transcribe Date/Time: Sep 03 2023 1:33P Dictated by : JIMY ROMERO MD This examination was interpreted and the report reviewed and electronically signed by: JIMY ROMERO MD on Sep 03 2023 1:34PM EST [id number] [facility] XR PELVIS 1V APon 09-03-2023 XR PELVIS 1V AP * * *Final Report* * * DATE OF EXAM: Sep 03 2023 2:35PM [facility] 5239 - XR PELVIS 1V AP / PROCEDURE REASON: Post-operative / post-procedure assessment * * * * Physician Interpretation * * * * EXAM TITLE: XR PELVIS 1V AP DATE: 09/03/2023 INDICATION: Status post open reduction internal fixation of right intertrochanteric femur fracture. COMPARISON: 09/02/2023 AP view of the pelvis shows intramedullary kerline and femoral neck screw bridging right intertrochanteric femur fracture. Postsurgical changes are seen in the adjacent soft tissues. Normal alignment at the level the left hip. IMPRESSION: Status post open reduction internal fixation of right intertrochanteric femur fracture. Concrete Tile Machine Operator: GEORGE Transcribe Date/Time: Sep 03 2023 2:42P Dictated by : JIMY ROMERO MD This examination was interpreted and the report reviewed and electronically signed by: JIMY ROMERO MD on Sep 03 2023 2:43PM EST [id number] [facility] ALLIED HEALTHon 09-02-2023 ALLIED HEALTH HNO ID: [id number] Author: TERE HORNER Chaplain Service: ? Author Type: Type: Allied Health Filed: 09/02/2023 11:46 Note Text: SPIRITUAL CARE PROGRESS NOTE SERVICE DATE: 09/02/2023 SERVICE TIME: 11:45 am called ED upon receiving page to inquire about family of patient. No family were present at the time. Should needs arise for patient or family, please call spiritual care. To contact the Spiritual Care Department: Please call [phone]. SIGNATURE: Chaplain Christiano PATIENT NAME: Trenton Jackson DATE: September 02, 2023 TIME: 11:45 AM PAGER/CONTACT #: [phone] Normal [facility] Absolute lymphocyte countOrd ered By: Griselda Christina on 09-02-2023 Lymphocytes Auto (Unsp spec) [#/Vol] 1.79 10*3/uL 0.83-4.51 [facility] Activated partial thrombopla stin time (aPTT) in platelet poor plasma by coagulation aOrdered By: Griselda Christina on 09-02-2023 aPTT Coag (PPP) [Time] 25.5 s 24.1-36.2 [facility] Automated lymphocyte count a s percentage of total leukocytesOrdered By: Griselda Christina on 09-02-2023 Lymphocytes/100 WBC Auto (Unsp spec) 18.9 % 19-41 [facility] Basophil percentageOrdered B y: Griselda Christina on 09-02-2023 Basophils/100 WBC (Bld) 0.7 % 0-1 [facility] Chloride [Moles/Vol] 102 mmol/L 98-107 [facility] Eosinophils/100 WBC (Bld) 3.9 % 0-5 [facility] Glucose [Mass/Vol] 306 mg/dL 74-106 [facility] Comment on above: Glucose result great er than or equal to 200 mg/dLsuggests DIABETES MELLITUS per A.D.A. criteria. Hemoglobin (Bld) [Mass/Vol] 14.4 g/dL 12.0-15.0 [facility] Monocytes/100 WBC (Bld) 5.2 % 0-10 [facility] Neutrophils (Bld) [#/Vol] 6.5 10*3/uL 2.0-7.7 [facility] Neutrophils/100 WBC (Bld) 69.1 % 47-70 [facility] Potassium [Moles/Vol] 3.3 mmol/L 3.5-5.1 [facility] Sodium [Moles/Vol] 136 mmol/L 136-145 [facility] WBC (Bld) [#/Vol] 9.5 10*3/uL 4.4-11.0 [facility] CBC panel Auto (Bld)on 09-01 Erythrocyte distribution width (RBC) [Ratio] 13.6 % Normal 11.5-15.0 [facility] Comment on above: Order Comment: Speci men Type: BLOOD SPECIMEN Ordering Facility: [facility] Address: [address] [place] [address] Performed By: #### 2 4321-2 #### [facility] CLIA [id number] [address] OF [facility] Hematocrit (Bld) [Volume fraction] 42.9 % Normal 36.0-46.0 [facility] Comment on above: Order Comment: Speci men Type: BLOOD SPECIMEN Ordering Facility: [facility] Address: [address] [place] [address] Performed By: #### 2 4321-2 #### [facility] CLIA [id number] [address] OF [place] Hemoglobin (Bld) [Mass/Vol] 14.4 g/dL Normal 11.5-15.5 [facility] Comment on above: Order Comment: Speci men Type: BLOOD SPECIMEN Ordering Facility: [facility] Address: [address] [place] [address] Performed By: #### 2 4321-2 #### [facility] CLIA [id number] [address] MCH (RBC) [Entitic mass] 26.7 pg Normal 26.0-34.0 [facility] Comment on above: Order Comment: Speci men Type: BLOOD SPECIMEN Ordering Facility: [facility] Address: [address] [place] [address] Performed By: #### 2 4321-2 #### [facility] CLIA [id number] [address] [place] MCHC (RBC) [Mass/Vol] 33.6 g/dL Normal 30.5-36.0 [facility] Comment on above: Order Comment: Speci men Type: BLOOD SPECIMEN Ordering Facility: [facility] Address: [address] [place] [address] Performed By: #### 2 4321-2 #### [facility] CLIA [id number] [address] OF [place] MCV (RBC) [Entitic vol] 79.4 fL Low 80.0-100.0 [facility] Comment on above: Order Comment: Speci men Type: BLOOD SPECIMEN Ordering Facility: [facility] Address: [address] [place] [address] Performed By: #### 2 4321-2 #### [facility] CLIA [id number] [address] [place] Nucleated RBC (Bld) [#/Vol] 10*3/uL Normal <0.01 [facility] Comment on above: Order Comment: Speci men Type: BLOOD SPECIMEN Ordering Facility: [facility] Address: [address] [place] [address] Performed By: #### 2 4321-2 #### [facility] CLIA [id number] [address] Platelet mean volume (Bld) [Entitic vol] 9.2 fL Normal 9.0-12.7 [facility] Comment on above: Order Comment: Speci men Type: BLOOD SPECIMEN Ordering Facility: [facility] Address: [address] [place] [address] Performed By: #### 2 4321-2 #### [facility] CLIA [id number] [address] Platelets (Bld) [#/Vol] 172 10*3/uL Normal 150-400 [facility] Comment on above: Order Comment: Speci men Type: BLOOD SPECIMEN Ordering Facility: [facility] Address: [address] [place] [address] Performed By: #### 2 4321-2 #### [facility] CLIA [id number] [address] [place] RBC (Bld) [#/Vol] 5.40 10*6/uL High 3.90-5.20 [facility] Comment on above: Order Comment: Speci men Type: BLOOD SPECIMEN Ordering Facility: [facility] Address: [address] [place] [address] [place] [address] Performed By: #### 2 4321-2 #### [facility] CLIA [id number] 1 [place] [id number] [place] WBC (Bld) [#/Vol] 15.50 10*3/uL High 3.70-11.00 [facility] Comment on above: Order Comment: Speci men Type: BLOOD SPECIMEN Ordering Facility: [facility] Address: [address] [place] [address] Performed By: #### 2 4321-2 #### [facility] CLIA [id number] 1 [place] [id number] [facility] CONSULTon 09-02-2023 CONSULT HNO ID: [id number] Author: DIYA MAY MD Service: Orthopaedic Surgery Author Type: Physician Type: Consults Filed: 09/03/2023 11:08 Note Text: I evaluated the patient and personally participated in the jones components. I agree with the resident's findings and plan with the following revisions and/or additions: Appreciate Cardiology input. Discussed nature of injury and planned surgery. Risks, benefits and expected recovery discussed. All questions answered to her apparent satisfaction and agrees to proceed. Signature: Diya May MD Service Date: 09/03/2023 Service Time: 11:07 AM ORTHOPAEDIC SURGERY CONSULT Pt: TRENTON Ahuja CORRIE Physician consulted: Dr. May Chief Complaint: Right Hip Pain HPI: 53 year old female presented as a level II trauma activation to [facility] ED as a transfer from [facility] on 09/02/2023 for evaluation of right hip pain. The patient endorses a ground level fall in her bathroom with subsequent immediate and severe right hip pain and the inability to ambulate. She was brought to [place] ED and was found to have a right intertrochanteric femur fracture as well as CHF on initial workup and was transferred here for further evaluation. In the room, the patient denies head trauma and loss of consciousness during or after the fall. The patient denies new numbness and tingling of the right lower extremity beyond her baseline diabetic neuropathy. Of note, the patient has a left TMA secondary to uncontrolled diabetes. The patient lives at home with her daughter. The patient endorses anticoagulation utilization but is unsure what she is taking. Per the medical record, she is on ASA 81 mg daily. The patient denies headache, chest pain, SOB, fevers, chills, nausea, vomiting and other constitutional symptoms at this time. The patient has no additional orthopaedic complaints at this time. PAST MEDICAL HISTORY Diagnosis Date Chest pain Diabetes mellitus Diverticula of intestine Hyperglycemia 09/23/2018 Hyperlipemia Hypertension Incisional hernia Psychiatric disorder PAST SURGICAL HISTORY Procedure Laterality Date APPENDECTOMY 2007 DELIVERY ONLY , low transverse COLONOSCOPY 2001? DANDC, DIAG AND/OR THERAPEUTIC 10/17/12 EGD W/O OR W/BRUSH/WASH 02/01/2016 EGD HEART CATHETERIZATION LAPAROSCOPIC CHOLEYCYSTECTOMY 1998 Cholecystectomy, lap LIGATE FALLOPIAN TUBE Tubal ligation PAST SURGICAL HISTORY OF 2009 cysy removed from neck REPAIR INCIS HERNIA W MESH 10/16/13 REPAIR INCISIONAL HERNIA,REDUCIBLE 10/16/13 SIGMOIDOSCOPY FLEX DIAG 02/01/2016 Sigmoidoscopy, flexible Allergies: Latex Current Facility-Administered Medications Medication Dose Route Frequency fentaNYL 50 mcg/mL injection (SUBLIMAZE) INTRAVENOUS PRN NaCl 0.9% iv flush bag 20 mL INTRAVENOUS PRN iv contrast (radiology procedure) INTRAVENOUS DIRECTED PRN iv contrast (radiology procedure) INTRAVENOUS DIRECTED PRN Current Outpatient Medications Medication Sig Blood-Glucose Meter (FREESTYLE LITE METER) monitoring kit Check sugars 4 times a day DX E11.8 ibuprofen (MOTRIN) 600 mg tablet Take 600 mg by mouth every 6 hours as needed. oxyCODONE-acetaminophen (PERCOCET) 5-325 mg tablet Take 1-2 tablets by mouth every 4 hours as needed. gabapentin (NEURONTIN) 300 mg capsule Take 300 mg by mouth three times daily. escitalopram oxalate (LEXAPRO) 20 mg tablet Take 20 mg by mouth once daily. busPIRone (BUSPAR) 5 mg tablet Take 5 mg by mouth three times daily. nicotine (NICODERM) 7 mg/24 hr Apply 1 Patch as directed every 24 hours. omeprazole (PRILOSEC) 20 mg capsule Take 1 capsule by mouth once daily. benzocaine (ORAL ANESTHETIC) 20 % gel Take 20 mg by mouth once daily. blood sugar diagnostic (FREESTYLE TEST) test strip Check sugars 4 times/d. Use as directed. insulin needles, DISPOSABLE, (UNIFINE PENTIPS) 31 gauge x 5/16 ndle Use with insulin injections ondansetron orally disintegrating (ZOFRAN ODT) 4 mg disintegrating tablet Take 1 tablet by mouth every 6 hours as needed. acetaminophen (TYLENOL) 325 mg tablet Take 2 tablets by mouth every 6 hours as needed. (Patient not taking: Reported on 07/01/2019 ) baclofen 5 mg tab Take 5 mg by mouth three times daily as needed (spasms and chest wall pain). (Patient not taking: Reported on 07/01/2019 ) nitroglycerin sublingual (NITROQUICK) 0.4 mg SL tablet Dissolve 1 tablet under the tongue every 5 minutes as needed for Chest Pain for up to 3 doses. ranolazine ER (RANEXA) 500 mg 12 hr tablet Take 1 tablet by mouth twice daily. insulin lispro (HUMALOG KWIKPEN) 100 unit/mL inpn Inject 6 Units subcutaneously w MEALS. insulin lispro (HUMALOG KWIKPEN) 100 unit/mL pen ADMINISTER CORRECTIONAL INSULIN REGARDLESS OF MEAL OR NUTRITION INTAKE Scale 2 If Blood Glucose (mg/dL) is: Less than 110 Give 0 units 111-150 Give 0 units 151-200 Give 2 units 201-250 Give 4 units 251-300 Give 6 units 3 (more content not included)... Normal [facility] CT ABD/PEL W IVCONon 024 CT ABD/PEL W IVCON * * *Final Report* * * DATE OF EXAM: Sep 02 2023 11:41AM [facility] 0530 - CT ABD/PEL W IVCON / PROCEDURE REASON: Abdominal trauma, blunt * * * * Physician Interpretation * * * * EXAMINATION: CT ABDOMEN AND PELVIS WITH IV CONTRAST CLINICAL HISTORY: Abdominal trauma, blunt. Mechanical fall. TECHNIQUE: CT of the abdomen and pelvis is performed using standard technique, scanning from just above the dome of the diaphragm to the symphysis pubis. An initial series of images are obtained during the arterial phase of enhancement with subsequent portal venous phase imaging. MQ: CTAP_3 Contrast: IV: 100 ml of Omnipaque 350 : ml of CT Radiation dose: Integrated Dose-length product (DLP) for this visit = 1412 mGy*cm. CT Dose Reduction Employed: Automated exposure control(AEC) and iterative recon COMPARISON: Multiple prior CT abdomen and pelvis studies, the most recent 04/08/2019, [facility] pelvis and right hip radiographs 09/02/2023. RESULT: Liver: Stable couple of hypoattenuating lesions previously described. Biliary: No bile duct dilation. Cholecystectomy. Spleen: No mass. Stable subcentimeter hypoattenuating lesions previously described. Pancreas: No mass or duct dilation. Adrenals: Slowly enlarging bilateral adrenal nodules. 2.6 cm right adrenal nodule. 2.5 cm hypoattenuating left adrenal nodule. Kidneys: Symmetric nephrograms. Slowly enlarging 2.4 cm cyst lateral upper pole left kidney. GI tract: Descending and sigmoid diverticulosis. Lymph nodes: No abdominal or pelvic lymphadenopathy. Mesentery/Peritoneum: No hemoperitoneum. Retroperitoneum: No hematoma. Vasculature: - Abdominal aorta and iliac arteries: Atherosclerotic calcifications without aneurysm. - Celiac and SMA: Atherosclerotic calcifications at the origins. - Portal venous system (SMV, splenic vein, portal vein and branches): Patent. - Hepatic veins: Patent. Pelvis: Douglas catheter within collapsed, air-containing urinary bladder. Limited evaluation of the decompression urinary bladder. No hematoma/hemoperitoneum. Bones/Soft Tissues: Right-sided acute, comminuted, intertrochanteric proximal femur fracture. The bones appear demineralized. Lower thorax: A CT chest is reported separately. Connie Cleaner (topogram) images: No additional findings. IMPRESSION: Right-sided acute comminuted intertrochanteric proximal femur fracture. Slowly enlarging bilateral adrenal nodules. Consider further characterization with nonemergent dedicated CT adrenal study. Stable hepatic and splenic lesions. ACTIONABLE RESULT: FOLLOW-UP Acuity: Actionable Findings: Adrenal Routing Code: AD_1 Recommendation: CT ADRENAL WO/W IVCON MASS EVALUATION Time Frame: At the discretion of the clinical team. COMMUNICATION: Results will be communicated with the ordering provider via [employer] staff message or phone message by Imaging Support Services within 2 business days of report finalization. --END OF FINDING-- Concrete Tile Machine Operator: GEORGE Transcribe Date/Time: Sep 02 2023 12:26P Dictated by : TORITO PARK MD This examination was interpreted and the report reviewed and electronically signed by: TORITO PARK MD on Sep 02 2023 1:00PM EST [id number] ACTIONABLE Invalid Interpretation Code [facility] CT BRAIN WO IVCONon 09-02-[address] BRAIN WO IVCON * * *Final Report* * * DATE OF EXAM: Sep 02 2023 11:39AM [facility] 0504 - CT BRAIN WO IVCON / PROCEDURE REASON: Head trauma, coagulopathy (Age 19-64y) * * * * Physician Interpretation * * * * EXAMINATION: CT CERVICAL SPINE WO IVCON, CT BRAIN WO IVCON CLINICAL HISTORY: Spine fracture, cervical, traumatic (accession [id number]), Head trauma, coagulopathy (Age 19-64y) (accession [id number]) TECHNIQUE: Serial axial images without IV contrast were obtained from the vertex to the cervicothoracic junction. CT Radiation dose: Integrated Dose-Length Product (DLP) for this visit = 1220 mGy*cm CT Dose Reduction Employed: Automated exposure control(AEC) and iterative recon COMPARISON: CT head and cervical spine 11/24/2015. RESULT: HEAD: Post-operative change: None. Acute change: No evidence of an acute infarct or other acute parenchymal process. Hemorrhage: No evidence of acute intracranial hemorrhage. ECASS hemorrhagic transformation score: Not Applicable Mass Lesion / Mass Effect: There is no evidence of an intracranial mass or extraaxial fluid collection. No significant mass effect. Chronic change: Scattered patchy foci of low attenuation are present within supratentorial white matter which is a nonspecific finding but likely represents mild microvascular ischemia. Atherosclerotic calcifications of the bilateral carotid siphons. Parenchyma: There is no significant volume loss. The brain parenchyma is otherwise within normal limits for age. Ventricles: The ventricles are within normal limits of size and configuration for age. Other: Unremarkable orbits and extracranial soft tissues. Intact calvarium and skull base. Visualized paranasal sinuses and mastoid air cells are clear. Connie Cleaner (topogram) images: Unremarkable. CERVICAL SPINE: Counting reference: Craniocervical junction. Anatomic Variants: None. Connie Cleaner (topogram) images: Unremarkable. Alignment: Alignment is anatomic. Craniocervical junction: Craniocervical junction is normal. Osseous structures/fracture: No evidence of a lytic or blastic process in the visualized spine. No evidence of acute or chronic fracture. Cervical soft tissues: The paraspinal soft tissues are within normal limits. Degenerative changes: Mild multilevel disc space narrowing with small osteophytes. Canal and foramina: Mild multilevel spinal canal stenosis at C4/C5 and C5/C6 due to small disc osteophyte complexes. Mild left C4/C5 neuroforaminal stenosis due to uncovertebral and facet hypertrophy. Other: Visualized lung apices are clear. Mild heterogeneity of the thyroid gland, which may be due to underlying nodules. Punctate calcifications in the bilateral palatine tonsils, likely postinfectious/postinflam matory. Atherosclerotic calcifications of the bilateral carotid bifurcations. IMPRESSION: Head CT: No acute intracranial hemorrhage or calvarial fracture. Mild white matter microvascular ischemic changes. Cervical spine CT: No acute cervical spine fracture or traumatic malalignment. Mild degenerative changes. Anatomic Variant: None. Assume 7 cervical vertebrae with counting from the craniocervical junction. Concrete Tile Machine Operator: PSCB Transcribe Date/Time: Sep 02 2023 11:52A Dictated by : RAYMUNDO MULLINS MD This examination was interpreted and the report reviewed and electronically signed by: RAYMUNDO MULLINS MD on Sep 02 2023 12:19PM EST [id number] Normal [facility] CT CERVICAL SPINE WO IVCONon 09-02-2023 CT CERVICAL SPINE WO IVCON * * *Final Report* * * DATE OF EXAM: Sep 02 2023 11:39AM [facility] 0505 - CT CERVICAL SPINE WO IVCON / PROCEDURE REASON: Spine fracture, cervical, traumatic * * * * Physician Interpretation * * * * EXAMINATION: CT CERVICAL SPINE WO IVCON, CT BRAIN WO IVCON CLINICAL HISTORY: Spine fracture, cervical, traumatic (accession [id number]), Head trauma, coagulopathy (Age 19-64y) (accession [id number]) TECHNIQUE: Serial axial images without IV contrast were obtained from the vertex to the cervicothoracic junction. CT Radiation dose: Integrated Dose-Length Product (DLP) for this visit = 1220 mGy*cm CT Dose Reduction Employed: Automated exposure control(AEC) and iterative recon COMPARISON: CT head and cervical spine 11/24/2015. RESULT: HEAD: Post-operative change: None. Acute change: No evidence of an acute infarct or other acute parenchymal process. Hemorrhage: No evidence of acute intracranial hemorrhage. ECASS hemorrhagic transformation score: Not Applicable Mass Lesion / Mass Effect: There is no evidence of an intracranial mass or extraaxial fluid collection. No significant mass effect. Chronic change: Scattered patchy foci of low attenuation are present within supratentorial white matter which is a nonspecific finding but likely represents mild microvascular ischemia. Atherosclerotic calcifications of the bilateral carotid siphons. Parenchyma: There is no significant volume loss. The brain parenchyma is otherwise within normal limits for age. Ventricles: The ventricles are within normal limits of size and configuration for age. Other: Unremarkable orbits and extracranial soft tissues. Intact calvarium and skull base. Visualized paranasal sinuses and mastoid air cells are clear. Connie Cleaner (topogram) images: Unremarkable. CERVICAL SPINE: Counting reference: Craniocervical junction. Anatomic Variants: None. Connie Cleaner (topogram) images: Unremarkable. Alignment: Alignment is anatomic. Craniocervical junction: Craniocervical junction is normal. Osseous structures/fracture: No evidence of a lytic or blastic process in the visualized spine. No evidence of acute or chronic fracture. Cervical soft tissues: The paraspinal soft tissues are within normal limits. Degenerative changes: Mild multilevel disc space narrowing with small osteophytes. Canal and foramina: Mild multilevel spinal canal stenosis at C4/C5 and C5/C6 due to small disc osteophyte complexes. Mild left C4/C5 neuroforaminal stenosis due to uncovertebral and facet hypertrophy. Other: Visualized lung apices are clear. Mild heterogeneity of the thyroid gland, which may be due to underlying nodules. Punctate calcifications in the bilateral palatine tonsils, likely postinfectious/postinflam matory. Atherosclerotic calcifications of the bilateral carotid bifurcations. IMPRESSION: Head CT: No acute intracranial hemorrhage or calvarial fracture. Mild white matter microvascular ischemic changes. Cervical spine CT: No acute cervical spine fracture or traumatic malalignment. Mild degenerative changes. Anatomic Variant: None. Assume 7 cervical vertebrae with counting from the craniocervical junction. Concrete Tile Machine Operator: PSCB Transcribe Date/Time: Sep 02 2023 11:52A Dictated by : RAYMUNDO MULLINS MD This examination was interpreted and the report reviewed and electronically signed by: RAYMUNDO MULLINS MD on Sep 02 2023 12:19PM EST [id number] Normal [facility] CT CHEST W IVCONon 4 CT CHEST W IVCON * * *Final Report* * * DATE OF EXAM: Sep 02 2023 11:41AM [facility] 0539 - CT CHEST W IVCON / PROCEDURE REASON: Chest trauma, blunt * * * * Physician Interpretation * * * * EXAMINATION: CHEST CT WITH CONTRAST CLINICAL HISTORY: Chest trauma, blunt. Mechanical fall. Technique: Spiral CT acquisition of the chest from the thoracic inlet to the upper abdomen following IV contrast. MQ: CTCW_6 Contrast: 100 mL Omnipaque [address] Radiation dose: Integrated Dose-length product (DLP) for this visit = 1412 mGy*cm CT Dose Reduction Employed: Automated exposure control(AEC) and iterative recon Comparison: Prior chest radiographs, the most recent of 10/27/2018, CT chest 12/14/2017, and OSH chest radiograph 09/02/2023. RESULT: Lines, tubes, and devices: None. Lung parenchyma and airways: On the right, posterior upper lobe and superior segment lower lobe linear densities suggesting discoid atelectasis or possible scarring. On the left, similar nodular densities seen along the major fissure, one of the larger measuring 12 mm, image 56 of series 6. Bilateral hazy lower lobe opacities with mild septal thickening. No consolidation. Suggestion of minimal secretions along the tracheobronchial tree. Pleural space: No hemothorax. No pneumothorax. Lower neck, lymph nodes, and mediastinum: The imaged thyroid gland is normal. Small and mild prominent mediastinal and bilateral hilar lymph nodes. For example, 1.2 cm short axis precarinal node. 1.4 cm short axis right hilar node, image 107 of series 2. Heart, pericardium, and thoracic vessels: The thoracic aorta and main pulmonary artery are normal in caliber. The cardiac chambers are normal in size. Coronary artery atherosclerotic calcifications are noted, although the study is not optimized for coronary assessment. Stable 3 cm left pericardial cyst. Small pericardial effusion. Bones and soft tissues: Chronic healed fracture deformity right humeral neck. Chest wall is unremarkable. Upper abdomen: A CT abdomen is reported separately. Connie Cleaner (topogram) images: No additional findings. IMPRESSION: Findings suggesting mild pulmonary edema. Similar small and mild prominent mediastinal and hilar lymph nodes considered likely reactive. Appropriate follow-up is recommended as indicated. Similar nodular densities seen in profile with the left major fissure. Small pericardial effusion. Stable left pericardial cyst. Concrete Tile Machine Operator: GEORGE Transcribe Date/Time: Sep 02 2023 12:42P Dictated by : TORITO PARK MD This examination was interpreted and the report reviewed and electronically signed by: TORITO PARK MD on Sep 02 2023 1:00PM EST [id number] Normal [facility] Comprehensive metabolic 2000 panelon 09-02-2023 Albumin [Mass/Vol] 3.5 g/dL Low 3.9-4.9 [facility] Comment on above: Order Comment: Speci men Type: BLOOD SPECIMEN Ordering Facility: [facility] Address: [address] [place] [address] Performed By: #### 5 8410-2 #### [facility] CLIA [id number] [address] STATES [place] [facility] ALP [Catalytic activity/Vol] 119 U/L Normal 34-123 [facility] Comment on above: Order Comment: Speci men Type: BLOOD SPECIMEN Ordering Facility: [facility] Address: [address] [place] [address] Performed By: #### 5 8410-2 #### [facility] CLIA [id number] [address] [place] [facility] ALT With P-5'-P [Catalytic activity/Vol] 20 U/L Normal 7-38 [facility] Comment on above: Order Comment: Speci men Type: BLOOD SPECIMEN Ordering Facility: [facility] Address: [address] [place] [address] Performed By: #### 5 8410-2 #### [facility] CLIA [id number] [address] [place] [facility] Anion gap [Moles/Vol] 13 mmol/L Normal 9-18 [facility] Comment on above: Order Comment: Speci men Type: BLOOD SPECIMEN Ordering Facility: [facility] Address: [address] [place] [address] Performed By: #### 5 8410-2 #### [facility] CLIA [id number] [address] [place] AST With P-5'-P [Catalytic activity/Vol] 21 U/L Normal 13-35 [facility] Comment on above: Order Comment: Speci men Type: BLOOD SPECIMEN Ordering Facility: [facility] Address: [address] [place] [address] Performed By: #### 5 8410-2 #### [facility] CLIA [id number] [address] [place] Bilirubin [Mass/Vol] 0.8 mg/dL Normal 0.2-1.3 [facility] Comment on above: Order Comment: Speci men Type: BLOOD SPECIMEN Ordering Facility: [facility] Address: [address] [place] [address] Performed By: #### 5 8410-2 #### [facility] CLIA [id number] [address] [place] Calcium [Mass/Vol] 9.0 mg/dL Normal 8.5-10.2 [facility] Comment on above: Order Comment: Speci men Type: BLOOD SPECIMEN Ordering Facility: [facility] Address: [address] [place] [address] Performed By: #### 5 8410-2 #### [facility] CLIA [id number] [address] [place] Chloride [Moles/Vol] 94 mmol/L Low 97-105 [facility] Comment on above: Order Comment: Speci men Type: BLOOD SPECIMEN Ordering Facility: [facility] Address: [address] [place] [address] Performed By: #### 5 8410-2 #### [facility] CLIA [id number] [address] [place] CO2 [Moles/Vol] 28 mmol/L Normal 22-30 [facility] Comment on above: Order Comment: Speci men Type: BLOOD SPECIMEN Ordering Facility: [facility] Address: [address] [place] [address] Performed By: #### 5 8410-2 #### [facility] CLIA [id number] [address] [place] Creatinine [Mass/Vol] 0.56 mg/dL Low 0.58-0.96 [facility] Comment on above: Order Comment: Speci men Type: BLOOD SPECIMEN Ordering Facility: [facility] Address: [address] [place] [address] Performed By: #### 5 8410-2 #### [facility] CLIA [id number] [address] [place] Creatinine and Glomerular filtration rate.predicted panel (S/P/Bld) 110 mL/min/1.73m??? Normal >=60 [facility] Comment on above: Order Comment: Radha tony Type: BLOOD SPECIMEN Ordering Facility: [facility] Address: [address] [place] [address] Result Comment: Crissy mated Glomerular Filtration Rate (eGFR) is calculated using the 2020 CKD-EPI creatinine equation. This equation utilizes serum creatinine, sex, and age as parameters. The creatinine assay has traceable calibration to isotope dilution-mass spectrometry. Refer to KDIGO guidelines for clinical interpretation. In patients with unstable renal function, e.g. those with acute kidney injury, the eGFR may not accurately reflect actual GFR. Performed By: #### 5 8410-2 #### [facility] CLIA [id number] [address] [place] [address] [place] Glucose [Mass/Vol] 312 mg/dL High 74-99 [facility] Comment on above: Order Comment: Radha tony Type: BLOOD SPECIMEN Ordering Facility: [facility] Address: [address] [place] [address] Result Comment: The [place] Diabetes [employer] (ADA) provides guidance for cutoff values for fasting glucose and random glucose. The ADA defines fasting as no caloric intake for at least 8 hours. Fasting plasma glucose results between 100 to 125 mg/dL indicate increased risk for diabetes (prediabetes). Fasting plasma glucose results greater than or equal to 126 mg/dL meet the criteria for diagnosis of diabetes. In the absence of unequivocal hyperglycemia, results should be confirmed by repeat testing. In a patient with classic symptoms of hyperglycemia or hyperglycemic crisis, random plasma glucose results greater than or equal to 200 mg/dL meet the criteria for diagnosis of diabetes. Reference: Standards of Medical Care in Diabetes 2016, [place] [employer]. Diabetes Care. 2016.39(Suppl 1). Performed By: #### 5 8410-2 #### [facility] CLIA [id number] [address] [place] Potassium [Moles/Vol] 3.7 mmol/L Normal 3.7-5.1 [facility] Comment on above: Order Comment: Speci men Type: BLOOD SPECIMEN Ordering Facility: [facility] Address: [address] [place] [address] Performed By: #### 5 8410-2 #### [facility] CLIA [id number] [address] [place] [facility] Protein [Mass/Vol] 7.2 g/dL Normal 6.3-8.0 [facility] Comment on above: Order Comment: Speci men Type: BLOOD SPECIMEN Ordering Facility: [facility] Address: [address] [place] [address] Performed By: #### 5 8410-2 #### [facility] CLIA [id number] [address] Sodium [Moles/Vol] 135 mmol/L Low 136-144 [facility] Comment on above: Order Comment: Speci men Type: BLOOD SPECIMEN Ordering Facility: [facility] Address: [address] [place] [address] Performed By: #### 5 8410-2 #### [facility] CLIA [id number] [address] STATES [facility] Urea nitrogen [Mass/Vol] 5 mg/dL Low 7-21 [facility] Comment on above: Order Comment: Speci men Type: BLOOD SPECIMEN Ordering Facility: [facility] Address: [address] [place] [address] Performed By: #### 5 8410-2 #### [facility] CLIA [id number] [address] Determination of erythrocyte mean corpuscular volume (MCV)Ordered By: Griselda Christina on 09-02-2023 MCV (RBC) [Entitic vol] 79.9 fL 81-99 [facility] ECG COMPLETEon 09-02-2023 ECG COMPLETE Ventricular Rate : 1 09 BPM Atrial Rate : 109 BPM P-R Interval : 168 ms QRS Duration : 128 ms Q-T Interval : 364 ms QTC Calculation(Bazett) : 490 ms Calculated P [place] : 46 degrees Calculated R [place] : -45 degrees Calculated T [place] : 97 degrees SINUS TACHYCARDIA POSSIBLE LEFT ATRIAL ENLARGEMENT LEFT AXIS DEVIATION LEFT VENTRICULAR HYPERTROPHY WITH QRS WIDENING ( Brian product ) CANNOT RULE OUT SEPTAL INFARCT , AGE UNDETERMINED T WAVE ABNORMALITY, CONSIDER LATERAL ISCHEMIA ABNORMAL ECG NO PREVIOUS ECGS AVAILABLE Confirmed by WELLINGTON SPANN ([id number]) on 02/27/2024 5:10:44 PM NAME : TRENTON JACKSON PID : [id number] : 1970 Gender : Female Race : ORD : [id number] Procedure Date : Sep 02 2023 12:10:42 Edit Date : Feb 27 2024 17:10:48 Diagnosis: SINUS TACHYCARDIA POSSIBLE LEFT ATRIAL ENLARGEMENT LEFT AXIS DEVIATION LEFT VENTRICULAR HYPERTROPHY WITH QRS WIDENING ( Oxford product ) CANNOT RULE OUT SEPTAL INFARCT , AGE UNDETERMINED T WAVE ABNORMALITY, CONSIDER LATERAL ISCHEMIA ABNORMAL ECG NO PREVIOUS ECGS AVAILABLE Confirmed by WELLINGTNO SPANN ([id number]) on 02/27/2024 5:10:44 PM Test Reason : Chest Pain Location : 4 : [facility] EM Overread By : WELLINGTON SPANN Edited By : WELLINGTON SPANN Referred By : , Acquired by : VIKTOR ART [facility] ED NOTEon 09-02-2023 ED NOTE HNO ID: [id number] Author: TESS LA RN Service: Emergency Medicine Author Type: Registered Nurse Type: ED Notes Filed: 09/02/2023 13:10 Note Text: Unable to obtain blood draw, MD aware. [facility] ED NOTE HNO ID: [id number] Author: TESS LA RN Service: Emergency Medicine Author Type: Registered Nurse Type: ED Notes Filed: 09/02/2023 12:53 Note Text: Resident aware of need for pain and nausea meds per pt request [facility] ED NOTE HNO ID: [id number] Author: TESS LA RN Service: Emergency Medicine Author Type: Registered Nurse Type: ED Notes Filed: 09/02/2023 12:19 Note Text: Trauma rns unable to obtain blood, US verified RN able to place US PIV at this time. [facility] ED NOTE HNO ID: [id number] Author: TESS LA RN Service: Emergency Medicine Author Type: Registered Nurse Type: ED Notes Filed: 09/02/2023 11:56 Note Text: Ortho MD at bedside [facility] ED NOTE HNO ID: [id number] Author: MILADIS ESPINOSA RN Service: ? Author Type: Registered Nurse Type: ED Notes Filed: 09/02/2023 11:38 Note Text: Bed: 19-ED Expected date: Expected time: Means of arrival: Comments: T2 [facility] ED NOTE HNO ID: [id number] Author: PENNIE MEDINA RN Service: Emergency Medicine Author Type: Registered Nurse Type: ED Notes Filed: 09/02/2023 11:22 Note Text: To CT [facility] ED NOTE HNO ID: [id number] Author: PENNIE MEDINA RN Service: Emergency Medicine Author Type: Registered Nurse Type: ED Notes Filed: 09/02/2023 11:22 Note Text: Blood bank and OR called [facility] Erythrocyte distribution wid th ratioOrdered By: Griselda Christina on 09-02-2023 Erythrocyte distribution width (RBC) [Ratio] 13.7 % 11.6-14.6 [facility] Erythrocyte distribution wid th standard deviationOrdered By: Griselda Christina on 09-02-2023 Erythrocyte distribution width (RBC) [Entitic vol] 39.7 fL 35.1-43.9 [facility] Ethanol SerPl-mCncon 024 Ethanol [Mass/Vol] mg/dL Normal <11 [facility] Comment on above: Order Comment: Speci men Type: BLOOD SPECIMEN Ordering Facility: [facility] Address: [address] [place] [address] Performed By: #### 5 8410-2 #### [facility] CLIA [id number] [address] [place] [facility] HCG QUAL BLDon 09-02-2023 HCG, QUALITATIVE Negative Normal Negative [facility] Comment on above: Order Comment: Speci men Type: BLOOD SPECIMEN Ordering Facility: [facility] Address: [address] [place] [address] Performed By: #### 2 4321-2 #### [facility] CLIA [id number] [address] HIGH SENSITIVITY TROPONIN T (INITIAL)on 09-02-2023 Troponin T.cardiac High sensitivity method [Mass/Vol] 40 ng/L High <12 [facility] Comment on above: Order Comment: Speci men Type: BLOOD SPECIMEN Ordering Facility: [facility] Address: [address] [place] [address] Result Comment: When assessing risk for acute coronary syndromes: In patients undergoing blood draw greater than or equal to 2 hours from symptom onset, with history of very low to moderate risk and non-ischemic ECG, an initial hs-Troponin T less than 12 ng/L AND a 1 hour delta hs-Troponin T less than 3 ng/L should be considered very low risk for 30 day MACE. 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 Per EMS, patient feel on the wet bathroom and landed on her right hip. GCS at Scene was 15. On arrival, patient is moaning in pain. She is neurologically intact and HDS. She has obvious pain to the right hip. At [facility], CXR and PXR showed chronic CHF and right hip fracture HPI/CHIEF COMPLAINT: OTHER MECHANISMS: Fall-Same Level BRIEF DESCRIPTION OF INJURIES: Right hip fx LAST FLUIDS/MEAL: Unknown CODE STATUS: Not discussed ALLERGIES Allergen Reactions Latex Itching Red and dry cracking skin (Not in a hospital admission) DATE OF LAST TETANUS: Unknown Immunization History Administered Date(s) Administered COVID-19 original vaccine, full dose, monovalent (MODERNA) 11/30/2020 12/29/2020 influenza (IIV4) vaccine, age 6 mo - 64 yr, quadrivalent, PF (AFLURIA, FLUARIX, FLULAVAL, FLUZONE) 07/20/2018 PAST MEDICAL HISTORY Diagnosis Date Chest pain Diabetes mellitus Diverticula of intestine Hyperglycemia 09/23/2018 Hyperlipemia Hypertension Incisional hernia Psychiatric disorder PAST SURGICAL HISTORY Procedure Laterality Date APPENDECTOMY 2007 DELIVERY ONLY , low transverse COLONOSCOPY 2001? DANDC, DIAG AND/OR THERAPEUTIC 10/17/12 EGD W/O OR W/BRUSH/WASH 02/01/2016 EGD HEART CATHETERIZATION LAPAROSCOPIC CHOLEYCYSTECTOMY 1998 Cholecystectomy, lap LIGATE FALLOPIAN TUBE Tubal ligation PAST SURGICAL HISTORY OF 2009 cysy removed from neck REPAIR INCIS HERNIA W MESH 10/16/13 REPAIR INCISIONAL HERNIA,REDUCIBLE 10/16/13 SIGMOIDOSCOPY FLEX DIAG 02/01/2016 Sigmoidoscopy, flexible Social History Tobacco Use Smoking status: Every Day Packs/day: 0.50 Years: 27.00 Additional pack years: 0.00 Total pack years: 13.50 Types: Cigarettes Smokeless tobacco: Never Substance Use Topics Alcohol use: No Drug use: Yes Types: Marijuana Comment: ocassionally FAMILY HISTORY Problem Relation Age of Onset Thyroid Mother Graves Diabetes Mother Hypertension Mother Diabetes Maternal Grandmother Diabetes Maternal Uncle Diabetes Maternal Aunt ROS: Is the patient having any pain? Yes LOCATION: right hip Constitutional: Negative Eye/Ear/Nose: Negative Respiratory: Negative Cardiovascular: Negative GI/Liver/Biliary: Negative Genitourinary: Negative Psychiatric: Negative Neurologic: Negative Musculoskeletal: Negative Integument: Negative Endocrine: Negative Heme/Lymph: Negative Objective PRIMARY SURVEY AIRWAY: Patent BREATHING: Breath sounds equal CIRCULATION: PT/DP palpable bilat, Radials -palpable bilat, Femoral palpable bilat DISABILITY: Eye: 4=Spontaneous Verbal: 5=Oriented and Converses Motor: 6=Obeys Commands Total GCS: 15=4 Resp Rate: 10 to 29=4 Syst BP: > than 89=4 REVISED TRAUMA SCORE: 12 EXPOSE / ENVIRONMENT: Warm Blankets PROCEDURES: None SECONDARY SURVEY VITALS: There were no vitals filed for this visit. NEURO: Alert AND Oriented x 3, GCS 15, Cranial Nerves II-XII grossly Intact, Moves All Extremities, Strength Symmetrical, No Sensory Deficits. HEENT: Head: No lacerations or abrasions, no bony step-offs, midface stable to palpation. Eyes: PERRL, conjunctiva/corneas without lesions, EOMI. Ears: Canals without blood or CSF drainage, TMs clear, external ears without lacerations. Nose: Septum midline, no crepitus with motion. Throat: Oral mucosa without lacerations, teeth in place, tongue without lacerations. NECK: No midline pain with palpation, no lacerations/wounds, trachea midline. RESPIRATORY: No abrasions or contusions, no crepitus, chest wall without ttp, equal excursion. Unlabored breathing on RA CARDIOVASCULAR: regular rate, good perfusion throughout ABDOMEN: Soft, non-distended, non-tender, no scars or lacerations, no rebound or guarding. No masses or organomegaly. PELVIC/PERINEAL: Pelvis stable to palpation, no blood noted at urethra meatus, gluteal contraction intact. BACK/SPINE: Thoracolumbar spinal column non-tender, no step-off or deformity noted, no external injury noted. EXTREMITIES: Right hip fractures, Arm/shoulder normal bilaterally, forearm/elbow normal bilaterally, hand/wrist normal bilaterally, thigh/hip normal bilaterally, leg/knee normal bilaterally, foot/ankle normal bilaterally. RADIOLOGICAL/OTHER TEST DATA: No o (more content not included)... Normal [facility] Hematocrit Auto (Bld) [Volum e fraction]Ordered By: Griselda Christina on 09-02-2023 Hematocrit (Bld) [Volume fraction] 44.5 % 37-47 [facility] Immature granulocytes/100 WB C Auto (Bld)Ordered By: Griselda Christina on 09-02-2023 Immature granulocytes/100 WBC (Bld) 2.200 % 0.0-0.9 [facility] Comment on above: IG% - Immature Granu locytes (promyelocytes, myelocytes and metamyelocytes) > 1% indicates that a LEFT SHIFT is Present. Laboratory - Chemistry and C hemistry - challengeOrdered By: Griselda Christina on 09-02-2023 CO2 [Moles/Vol] 28.0 mmol/L 21.0-32.0 [facility] Urea nitrogen/Creatinine [Mass ratio] 6.6 mg/mg 10-20 [facility] Laboratory - CoagulationOrde red By: Griselda Christina on 09-02-2023 INR Coag (Bld) [Relative time] 0.9 {INR} [facility] PT Coag (PPP) [Time] 11.8 s 11.7-14.9 [facility] Laboratory - Hematology and Cell countsOrdered By: Griselda Christina on 09-02-2023 MCH (RBC) [Entitic mass] 25.9 pg 27.0-32.0 [facility] MCHC (RBC) [Mass/Vol] 32.4 g/dL 32-36 [facility] Nucleated RBC/100 WBC (Bld) [Ratio] 0 % 0-5 [facility] Platelet mean volume (Bld) [Entitic vol] 9.3 fL 6.2-12.0 [facility] Platelets (Bld) [#/Vol] 191 10*3/uL 150-450 [facility] Lipase SerPl-cCncon 09-02-19 24 Lipase [Catalytic activity/Vol] 17 U/L Normal 16-61 [facility] Comment on above: Order Comment: Speci men Type: BLOOD SPECIMEN Ordering Facility: [facility] Address: [address] [place] [address] Performed By: #### 5 8410-2 #### [facility] CLIA [id number] [address] [place] [address] [place] [facility] Natriuretic peptide.B prohormone N-Terminal [Mass/Vol] 4315 pg/mL High <125 [facility] Comment on above: Order Comment: Speci men Type: BLOOD SPECIMEN Ordering Facility: [facility] Address: [address] [place] [address] Performed By: #### 5 8410-2 #### [facility] CLIA [id number] [address] [place] NURSING PROGon 09-02-2023 NURSING PROG HNO ID: [id number] Author: DANI LAGOS, RN Service: Nursing Author Type: Registered Nurse Type: Nursing Progress Note Filed: 09/02/2023 14:35 Note Text: Other: Dr. Kingston made aware that second troponin unable to be obtained due to multiple sticks and IV unable to draw any blood. Normal [facility] No Panel InformationOrdered By: Griselda Christina on 09-02-2023 Estimated Creatinine Clearance Calc 97.60 ml/min [facility] Estimated GFR (MDRD) Amer 102 mL/min >60 [facility] Comment on above: GFR Calc Estimated GFR (MDRD) Non-Af Amer 85 mL/min >60 [facility] Comment on above: Non- GFR Calc PT panel Coag (PPP)on 2023 INR Coag (PPP) [Relative time] 1.0 {INR} Normal 0.9-1.3 [facility] Comment on above: Order Comment: Speci men Type: BLOOD SPECIMEN Ordering Facility: [facility] Address: [address] [place] [address] Result Comment: Charissa min K Antagonist (VKA) Therapeutic Range: INR 2 to 3 (Target INR of 2.5) Note: For patients treated with VKA drugs, such as warfarin, the [employer] 2012 Guideline recommends a therapeutic INR range of 2 to 3 (target INR of 2.5). This recommendation includes high-risk patients with antiphospholipid syndrome with previous arterial or venous thromboembolism, current-generation mechanical or bioprosthetic aortic heart valve replacement. Note: Patients with mechanical aortic valve replacement and additional risk factors for thromboembolic events (atrial fibrillation, previous thromboembolism, LV dysfunction, hypercoagulable conditions) or an older generation mechanical AVR (i.e., ball in-Cage) or any mechanical MVR should have a INR therapeutic range of 2.5 to 3.5 (target INR of 3). Rowan MATHEW, et al. Chest 2012, 141:7S-47S Sampson RA, et al. JACC 2017, 70: 252-289 Performed By: #### 3 4528-0, 78486-5 #### [facility] CLIA [id number] [address] [place] [address] [place] PT Coag (PPP) [Time] 10.3 s Normal 9.7-13.0 [facility] Comment on above: Order Comment: Speci men Type: BLOOD SPECIMEN Ordering Facility: [facility] Address: [address] [place] [address] Performed By: #### 3 4528-0, 92287-5 #### [facility] CLIA [id number] [address] [place] [address] [place] RBC Auto (Bld) [#/Vol]Ordere d By: Griselda Christina on 09-02-2023 RBC (Bld) [#/Vol] 5.57 10*6/uL 4.2-5.4 [facility] Serum or plasma calcium xiomara urement (mass/volume)Ordered By: Griselda Christina on 09-02-2023 Calcium [Mass/Vol] 9.1 mg/dL 8.5-10.1 [facility] Serum or plasma creatinine m easurement (mass/volume)Ordered By: Griselda Christina on 09-02-2023 Creatinine [Mass/Vol] 0.76 mg/dL 0.55-1.02 [facility] Comment on above: The validity of the calculated GFR & GFRAA in patients over 70 years has not been determined. Clinical correlation is essential. Serum or plasma urea nitroge n measurement (mass/volume)Ordered By: Griselda Christina on 09-02-2023 Urea nitrogen [Mass/Vol] 5 mg/dL 7-18 [facility] TOX SCREEN ROUT URon 024 Amphetamines Confirm (U) [Mass/Vol] Negative Normal Negative [facility] Comment on above: Order Comment: Speci men Type: URINE SPECIMEN Ordering Facility: [facility] Address: [address] [place] [address] Result Comment: Cuto ff threshold at 1000 ng/mL. Performed By: #### U TOX2 #### [facility] CLIA [id number] [address] OF [place] BARBITURATES, URINE Negative Normal Negative [facility] Comment on above: Order Comment: Speci men Type: URINE SPECIMEN Ordering Facility: [facility] Address: [address] [place] [address] Result Comment: Cuto ff threshold at 200 ng/mL. Performed By: #### U TOX2 #### [facility] CLIA [id number] [address] [place] [address] [place] BENZODIAZEPINES, UR Negative Normal Negative [facility] Comment on above: Order Comment: Speci men Type: URINE SPECIMEN Ordering Facility: [facility] Address: [address] [place] [address] Result Comment: Cuto ff threshold at 200 ng/mL. Performed By: #### U TOX2 #### [facility] CLIA [id number] [address] OF [facility] Cannabinoids Screen Ql (U) Positive Abnormal Negative [facility] Comment on above: Order Comment: Speci men Type: URINE SPECIMEN Ordering Facility: [facility] Address: [address] [place] [address] Result Comment: Cuto ff threshold at 50 ng/mL. Performed By: #### U TOX2 #### [facility] CLIA [id number] [address] [place] OF [facility] Cocaine Ql (U) Negative Normal Negative [facility] Comment on above: Order Comment: Speci men Type: URINE SPECIMEN Ordering Facility: [facility] Address: [address] [place] [address] Result Comment: Cuto ff threshold at 300 ng/mL. Performed By: #### U TOX2 #### [facility] CLIA [id number] [address] [place] [address] [place] Ethanol (U) [Mass/Vol] <11 Normal <11 [facility] Comment on above: Order Comment: Speci men Type: URINE SPECIMEN Ordering Facility: [facility] Address: [address] [place] [address] Performed By: #### U TOX2 #### [facility] CLIA [id number] [address] [place] Opiates Screen Ql (U) Positive Abnormal Negative [facility] Comment on above: Order Comment: Speci men Type: URINE SPECIMEN Ordering Facility: [facility] Address: [address] [place] [address] Result Comment: Cuto ff threshold at 300 ng/mL. Performed By: #### U TOX2 #### [facility] CLIA [id number] [address] oxyCODONE cutoff Screen (U) [Mass/Vol] Negative Normal Negative [facility] Comment on above: Order Comment: Speci men Type: URINE SPECIMEN Ordering Facility: [facility] Address: [address] [place] [address] Result Comment: Cuto ff threshold at 100 ng/mL. Performed By: #### U TOX2 #### [facility] CLIA [id number] [address] Phencyclidine Ql (U) Negative Normal Negative [facility] Comment on above: Order Comment: Speci men Type: URINE SPECIMEN Ordering Facility: [facility] Address: [address] [place] [address] Result Comment: Cuto ff threshold at 25 ng/mL. Performed By: #### U TOX2 #### [facility] CLIA [id number] [address] TYPE + SCREENon 09-02-2023 ABO O Normal [facility] Comment on above: Order Comment: Speci men Type: BLOOD SPECIMEN Ordering Facility: [facility] Address: [address] [place] [address] Performed By: #### 5 8410-2 #### [facility] CLIA [id number] [address] HISTORICAL AB SCR STATUS Negative Normal [facility] Comment on above: Order Comment: Speci men Type: BLOOD SPECIMEN Ordering Facility: [facility] Address: [address] [place] [address] Performed By: #### 5 8410-2 #### [facility] CLIA [id number] [address] [place] Rh Nom (Bld) Positive Normal [facility] Comment on above: Order Comment: Speci men Type: BLOOD SPECIMEN Ordering Facility: [facility] Address: [address] [place] [address] Performed By: #### 5 8410-2 #### [facility] CLIA [id number] [address] OF [facility] TYPE AND SCREEN EXPIRATION 09/05/2023 23:59 Normal [facility] Comment on above: Order Comment: Speci men Type: BLOOD SPECIMEN Ordering Facility: [facility] Address: [address] [place] [address] Performed By: #### 5 8410-2 #### [facility] CLIA [id number] [address] Thin prep Papanicolaou smear with manual screeningOrdered By: Griselda Christina on 09-02-2023 Thin prep Papanicolaou smear with manual screening 6 15 [facility] Urinalysis complete panel (U )on 09-02-2023 Bacteria LM.HPF (Urine sed) [#/Area] Rare Abnormal None Seen [facility] Comment on above: Order Comment: Speci men Type: URINE SPECIMEN Ordering Facility: [facility] Address: [address] [place] [address] Performed By: #### 2 4356-8 #### [facility] CLIA [id number] [address] OF [facility] Bilirubin Ql (U) Negative Normal Negative [facility] Comment on above: Order Comment: Speci men Type: URINE SPECIMEN Ordering Facility: [facility] Address: [address] [place] [address] Performed By: #### 2 4356-8 #### [facility] CLIA [id number] [address] Clarity (Unsp spec) Clear Normal Clear [facility] Comment on above: Order Comment: Speci men Type: URINE SPECIMEN Ordering Facility: [facility] Address: [address] [place] [address] Performed By: #### 2 4356-8 #### [facility] CLIA [id number] [address] OF [facility] Color (U) Light Yellow Normal yellow [facility] Comment on above: Order Comment: Speci men Type: URINE SPECIMEN Ordering Facility: [facility] Address: [address] [place] [address] Performed By: #### 2 4356-8 #### [facility] CLIA [id number] [address] OF [facility] Glucose Test strip (U) [Mass/Vol] 4+ Abnormal Trace, Negative [facility] Comment on above: Order Comment: Speci men Type: URINE SPECIMEN Ordering Facility: [facility] Address: [address] [place] [address] Performed By: #### 2 4356-8 #### [facility] CLIA [id number] [address] Hemoglobin Ql (U) 3+ Abnormal Negative, Trace [facility] Comment on above: Order Comment: Speci men Type: URINE SPECIMEN Ordering Facility: [facility] Address: [address] [place] [address] Performed By: #### 2 4356-8 #### [facility] CLIA [id number] [address] Ketones Ql (U) Negative Normal Negative, Trace [facility] Comment on above: Order Comment: Speci men Type: URINE SPECIMEN Ordering Facility: [facility] Address: [address] [place] [address] Performed By: #### 2 4356-8 #### [facility] CLIA [id number] [address] Leukocyte esterase Test strip Ql (U) Negative Normal Negative, 25 Jennifer/uL [facility] Comment on above: Order Comment: Speci men Type: URINE SPECIMEN Ordering Facility: [facility] Address: [address] [place] [address] Performed By: #### 2 4356-8 #### [facility] CLIA [id number] [address] Nitrite Ql (U) Negative Normal Negative [facility] Comment on above: Order Comment: Speci men Type: URINE SPECIMEN Ordering Facility: [facility] Address: [address] [place] [address] Performed By: #### 2 4356-8 #### [facility] CLIA [id number] [address] pH (U) 6.5 [pH] Normal 5.0-8.0 [facility] Comment on above: Order Comment: Speci men Type: URINE SPECIMEN Ordering Facility: [facility] Address: [address] [place] [address] Performed By: #### 2 4356-8 #### [facility] CLIA [id number] [address] Protein (U) [Mass/Vol] 2+ Abnormal Trace , Negative [facility] Comment on above: Order Comment: Speci men Type: URINE SPECIMEN Ordering Facility: [facility] Address: [address] [place] [address] Performed By: #### 2 4356-8 #### [facility] CLIA [id number] [address] RBC LM.HPF (Urine sed) [#/Area] /[HPF] Abnormal 0-3 /HPF [facility] Comment on above: Order Comment: Speci men Type: URINE SPECIMEN Ordering Facility: [facility] Address: [address] [place] [address] Performed By: #### 2 4356-8 #### [facility] CLIA [id number] [address] Specific gravity (U) [Rel density] >1.040 High 1.005-1.03 0 [facility] Comment on above: Order Comment: Speci men Type: URINE SPECIMEN Ordering Facility: [facility] Address: [address] [place] [address] Performed By: #### 2 4356-8 #### [facility] CLIA [id number] [address] Urobilinogen Ql (U) Normal Normal Normal [facility] Comment on above: Order Comment: Speci men Type: URINE SPECIMEN Ordering Facility: [facility] Address: [address] [place] [address] Performed By: #### 2 4356-8 #### [facility] CLIA [id number] [address] WBC LM.HPF (Urine sed) [#/Area] 0-5 /HPF Normal 0-5 /HPF [facility] Comment on above: Order Comment: Speci men Type: URINE SPECIMEN Ordering Facility: [facility] Address: [address] [place] [address] Performed By: #### 2 4356-8 #### [facility] CLIA [id number] [address] OF [facility] XR FEMUR 2V AP/LAT RTon 08-04 XR FEMUR 2V AP/LAT RT * * *Final Report* * * DATE OF EXAM: Sep 02 2023 5:29PM AKX [id number] - XR FEMUR 2V AP/LAT RT / PROCEDURE REASON: Fracture, femur * * * * Physician Interpretation * * * * EXAMINATION: Right femur HISTORY: Fracture TECHNIQUE: 4 views RESULTS: There is an acute slightly angulated intratrochanteric fracture with mild avulsion of the greater trochanter. Distal to the fracture the femur is intact. No additional fractures seen. Vascular SFA stent noted in the soft tissues. Prominent vascular calcifications. There is also a stent overlying the femoral head proximal SFA. IMPRESSION: Comminuted slightly angulated intratrochanteric fracture of the right hip [employer] Operator: GEORGE Transcribe Date/Time: Sep 02 2023 5:30P Dictated by : MEKA TAYLOR MD This examination was interpreted and the report reviewed and electronically signed by: MEKA TAYLOR MD on Sep 02 2023 5:32PM EST [id number] Normal [facility] aPTT PPPon 09-02-2023 aPTT Coag (PPP) [Time] 26.2 s Normal 23.0-32.4 [facility] Comment on above: Order Comment: Speci men Type: BLOOD SPECIMEN Ordering Facility: [facility] Address: [address] [place] [address] Performed By: #### 3 4528-0, 09443-0 #### [facility] CLIA [id number] [address] [place] [id number] [facility] Absolute lymphocyte countOrd ered By: Ananda Coyle on 06-19-2023 Lymphocytes Auto (Unsp spec) [#/Vol] 0.91 10*3/uL 0.83-4.51 [facility] Automated lymphocyte count a s percentage of total leukocytesOrdered By: Ananda Coyle on 06-19-2023 Lymphocytes/100 WBC Auto (Unsp spec) 8.1 % 19-41 [facility] Basophil percentageOrdered B y: Ananda Coyle on 06-19-2023 Basophils/100 WBC (Bld) 0.7 % 0-1 [facility] Chloride [Moles/Vol] 102 mmol/L 98-107 [facility] Eosinophils/100 WBC (Bld) 1.2 % 0-5 [facility] Glucose [Mass/Vol] 205 mg/dL 74-106 [facility] Comment on above: Glucose result great er than or equal to 200 mg/dLsuggests DIABETES MELLITUS per A.D.A. criteria. Hemoglobin (Bld) [Mass/Vol] 13.6 g/dL 12.0-15.0 [facility] Monocytes/100 WBC (Bld) 3.2 % 0-10 [facility] Neutrophils (Bld) [#/Vol] 9.7 10*3/uL 2.0-7.7 [facility] Neutrophils/100 WBC (Bld) 86.3 % 47-70 [facility] Potassium [Moles/Vol] 4.2 mmol/L 3.5-5.1 [facility] Sodium [Moles/Vol] 137 mmol/L 136-145 [facility] WBC (Bld) [#/Vol] 11.2 10*3/uL 4.4-11.0 [facility] Determination of erythrocyte mean corpuscular volume (MCV)Ordered By: Ananda Coyle on 06-19-2023 MCV (RBC) [Entitic vol] 81.2 fL 81-99 [facility] Erythrocyte distribution wid th ratioOrdered By: Ananda Coyle on 06-19-2023 Erythrocyte distribution width (RBC) [Ratio] 14.6 % 11.6-14.6 [facility] Erythrocyte distribution wid th standard deviationOrdered By: Ananda Coyle on 06-19-2023 Erythrocyte distribution width (RBC) [Entitic vol] 42.7 fL 35.1-43.9 [facility] Hematocrit Auto (Bld) [Volum e fraction]Ordered By: Ananda Coyle on 06-19-2023 Hematocrit (Bld) [Volume fraction] 42.7 % 37-47 [facility] Immature granulocytes/100 WB C Auto (Bld)Ordered By: Ananda Coyle on 06-19-2023 Immature granulocytes/100 WBC (Bld) 0.500 % 0.0-0.9 [facility] Comment on above: IG% - Immature Granu locytes (promyelocytes, myelocytes and metamyelocytes) > 1% indicates that a LEFT SHIFT is Present. Laboratory - Chemistry and C hemistry - challengeOrdered By: Ananda Coyle on 06-19-2023 CO2 [Moles/Vol] 27.0 mmol/L 21.0-32.0 [facility] Urea nitrogen/Creatinine [Mass ratio] 16.5 mg/mg 10-20 [facility] Laboratory - Hematology and Cell countsOrdered By: Ananda Coyle on 06-19-2023 MCH (RBC) [Entitic mass] 25.9 pg 27.0-32.0 [facility] MCHC (RBC) [Mass/Vol] 31.9 g/dL 32-36 [facility] Nucleated RBC/100 WBC (Bld) [Ratio] 0 % 0-5 [facility] Platelets (Bld) [#/Vol] 214 10*3/uL 150-450 [facility] No Panel InformationOrdered By: Ananda Coyle on 06-19-2023 Estimated Creatinine Clearance Calc 83.12 ml/min [facility] Estimated GFR (MDRD) Amer 91 mL/min >60 [facility] Comment on above: GFR Calc Estimated GFR (MDRD) Non-Af Amer 75 mL/min >60 [facility] Comment on above: Non- GFR Calc Platelet mean volume Marco-Ec ker (Bld) [Entitic vol]Ordered By: Ananda Coyle on 06-19-2023 Platelet mean volume (Bld) [Entitic vol] 9.9 fL 6.2-12.0 [facility] RBC Auto (Bld) [#/Vol]Ordere d By: Ananda Coyle on 06-19-2023 RBC (Bld) [#/Vol] 5.26 10*6/uL 4.2-5.4 [facility] Serum or plasma calcium xiomara urement (mass/volume)Ordered By: Ananda Coyle on 06-19-2023 Calcium [Mass/Vol] 9.6 mg/dL 8.5-10.1 [facility] Serum or plasma creatinine m easurement (mass/volume)Ordered By: Ananda Coyle on 06-19-2023 Creatinine [Mass/Vol] 0.85 mg/dL 0.55-1.02 [facility] Comment on above: The validity of the calculated GFR & GFRAA in patients over 70 years has not been determined. Clinical correlation is essential. Serum or plasma urea nitroge n measurement (mass/volume)Ordered By: Ananda Coyle on 06-19-2023 Urea nitrogen [Mass/Vol] 14 mg/dL 7-18 [facility] Thin prep Papanicolaou smear with manual screeningOrdered By: Ananda Coyle on 06-19-2023 Thin prep Papanicolaou smear with manual screening 8 5-15 [facility] Basophil percentageOrdered B y: Jeremy Alexander on 06-16-2023 Chloride [Moles/Vol] 105 mmol/L 98-107 [facility] Glucose [Mass/Vol] 65 mg/dL 74-106 [facility] Potassium [Moles/Vol] 3.7 mmol/L 3.5-5.1 [facility] Sodium [Moles/Vol] 139 mmol/L 136-145 [facility] Glucose Glucometer (BldC) [M ass/Vol]Ordered By: Jeremy Alexander on 06-16-2023 Glucose [Mass/Vol] 161 mg/dL 74-106 [facility] Comment on above: MANAGEMENT OF PATIEN T CARE PER NURSING PROTOCOL Laboratory - Chemistry and C hemistry - challengeOrdered By: Jeremy Alexander on 06-16-2023 CO2 [Moles/Vol] 27.0 mmol/L 21.0-32.0 [facility] Urea nitrogen/Creatinine [Mass ratio] 20.9 mg/mg 10-20 [facility] No Panel InformationOrdered By: Jeremy Alexander on 06-16-2023 Estimated Creatinine Clearance Calc 107.78 ml/min [facility] Estimated GFR (MDRD) Amer 119 mL/min >60 [facility] Comment on above: GFR Calc Estimated GFR (MDRD) Non-Af Amer 98 mL/min >60 [facility] Comment on above: Non- GFR Calc Serum or plasma calcium xiomara urement (mass/volume)Ordered By: Jeremy Alexander on 06-16-2023 Calcium [Mass/Vol] 8.9 mg/dL 8.5-10.1 [facility] Serum or plasma creatinine m easurement (mass/volume)Ordered By: Jeremy Alexander on 06-16-2023 Creatinine [Mass/Vol] 0.67 mg/dL 0.55-1.02 [facility] Comment on above: The validity of the calculated GFR & GFRAA in patients over 70 years has not been determined. Clinical correlation is essential. Serum or plasma urea nitroge n measurement (mass/volume)Ordered By: Jeremy Alexander on 06-16-2023 Urea nitrogen [Mass/Vol] 14 mg/dL 7-18 [facility] Thin prep Papanicolaou smear with manual screeningOrdered By: Jeremy Alexander on 06-16-2023 Thin prep Papanicolaou smear with manual screening 7 5-15 [facility] Absolute lymphocyte countOrd ered By: Jeremy Alexander on 06-15-2023 Lymphocytes Auto (Unsp spec) [#/Vol] 1.49 10*3/uL 0.83-4.51 [facility] Basophil percentageOrdered B y: Jeremy Alexander on 06-15-2023 Basophil percentage 4.9 mg/dL 2.5-4.9 [facility] Basophils/100 WBC (Bld) 0.8 % 0-1 [facility] Eosinophils/100 WBC (Bld) 5.7 % 0-5 [facility] Neutrophils (Bld) [#/Vol] 4.0 10*3/uL 2.0-7.7 [facility] Neutrophils/100 WBC (Bld) 61.2 % 47-70 [facility] WBC (Bld) [#/Vol] 6.5 10*3/uL 4.4-11.0 [facility] Blood erythrocytes count (nu mber/volume)Ordered By: Jeremy Alexander on 06-15-2023 RBC (Bld) [#/Vol] 4.70 10*6/uL 4.2-5.4 [facility] Blood hemoglobin measurement (mass/volume)Ordered By: Jeremy Alexander on 06-15-2023 Hemoglobin (Bld) [Mass/Vol] 12.0 g/dL 12.0-15.0 [facility] Blood lymphocytes/100 leukoc ytesOrdered By: Jeremy Alexander on 06-15-2023 Lymphocytes/100 WBC (Bld) 22.9 % 19-41 [facility] Blood monocytes/100 leukocyt esOrdered By: Jeremy Alexander on 06-15-2023 Monocytes/100 WBC (Bld) 8.9 % 0-10 [facility] Blood platelet mean volumeOr dered By: Jeremy Alexander on 06-15-2023 Platelet mean volume (Bld) [Entitic vol] 10.2 fL 6.2-12.0 [facility] Determination of erythrocyte mean corpuscular volume (MCV)Ordered By: Jeremy Alexander on 06-15-2023 MCV (RBC) [Entitic vol] 81.9 fL 81-99 [facility] Hematocrit Auto (Bld) [Volum e fraction]Ordered By: Jeremy Alexander on 06-15-2023 Hematocrit (Bld) [Volume fraction] 38.5 % 37-47 [facility] Laboratory - Chemistry and C hemistry - challengeOrdered By: Jeremy Alexander on 06-15-2023 Magnesium [Mass/Vol] 2.1 mg/dL 1.6-2.6 [facility] Laboratory - Hematology and Cell countsOrdered By: Jeremy Alexander on 06-15-2023 Erythrocyte distribution width (RBC) [Entitic vol] 41.6 fL 35.1-43.9 [facility] Erythrocyte distribution width (RBC) [Ratio] 14.1 % 11.6-14.6 [facility] Immature granulocytes/100 WBC (Bld) 0.500 % 0.0-0.9 [facility] Comment on above: IG% - Immature Granu locytes (promyelocytes, myelocytes and metamyelocytes) > 1% indicates that a LEFT SHIFT is Present. MCH (RBC) [Entitic mass] 25.5 pg 27.0-32.0 [facility] Nucleated RBC/100 WBC (Bld) [Ratio] 0 % 0-5 [facility] MCHC Auto (RBC) [Mass/Vol]Or dered By: Jeremy Alexander on 06-15-2023 MCHC (RBC) [Mass/Vol] 31.2 g/dL 32-36 [facility] No Panel InformationOrdered By: Jeremy Alexander on 06-15-2023 Troponin I High Sensitivity 17 pg/mL 3.0-54.0 [facility] Comment on above: Please Note: New Junie t Units and Gender Specific Reference Ranges. For more information see Policy Stat Procedure [place] High Sensitivity Troponin (TNIH) and attachments. Platelets bldOrdered By: Kenia Alexander on 06-15-2023 Platelets (Bld) [#/Vol] 201 10*3/uL 150-450 [facility] Absolute lymphocyte countOrd ered By: Riccardo Hillman on 06-12-2023 Lymphocytes Auto (Unsp spec) [#/Vol] 1.61 10*3/uL 0.83-4.51 [facility] Basophil percentageOrdered B y: Riccardo Hillman on 06-12-2023 Basophils/100 WBC (Bld) 1.0 % 0-1 [facility] Chloride [Moles/Vol] 103 mmol/L 98-107 [facility] Eosinophils/100 WBC (Bld) 3.9 % 0-5 [facility] Glucose [Mass/Vol] 272 mg/dL 74-106 [facility] Comment on above: Glucose result great er than or equal to 200 mg/dLsuggests DIABETES MELLITUS per A.D.A. criteria. Neutrophils (Bld) [#/Vol] 5.5 10*3/uL 2.0-7.7 [facility] Neutrophils/100 WBC (Bld) 68.5 % 47-70 [facility] Potassium [Moles/Vol] 4.0 mmol/L 3.5-5.1 [facility] Comment on above: Moderate Hemolysis, Result may be falsely increased. Sodium [Moles/Vol] 136 mmol/L 136-145 [facility] WBC (Bld) [#/Vol] 8.0 10*3/uL 4.4-11.0 [facility] Blood erythrocytes count (nu mber/volume)Ordered By: Riccardo Hillman on 06-12-2023 RBC (Bld) [#/Vol] 4.92 10*6/uL 4.2-5.4 [facility] Blood hemoglobin measurement (mass/volume)Ordered By: Riccardo Hillman on 06-12-2023 Hemoglobin (Bld) [Mass/Vol] 12.7 g/dL 12.0-15.0 [facility] Blood lymphocytes/100 leukoc ytesOrdered By: Riccardo Hillman on 06-12-2023 Lymphocytes/100 WBC (Bld) 20.3 % 19-41 [facility] Blood manual differential co mment interpretation (narrative result)Ordered By: Riccardo Hillman on 06-12-2023 Manual differential comment Main (Bld) [Interp] SCANNED [facility] Comment on above: AUTO DIFF OK Blood monocytes/100 leukocyt esOrdered By: Riccardo Hillman on 06-12-2023 Monocytes/100 WBC (Bld) 6.0 % 0-10 [facility] Blood platelet mean volumeOr dered By: Riccardo Hillman on 06-12-2023 Platelet mean volume (Bld) [Entitic vol] 11.3 fL 6.2-12.0 [facility] Determination of erythrocyte mean corpuscular volume (MCV)Ordered By: Riccardo Hillman on 06-12-2023 MCV (RBC) [Entitic vol] 81.3 fL 81-99 [facility] Hematocrit Auto (Bld) [Volum e fraction]Ordered By: Riccardo Hillman on 06-12-2023 Hematocrit (Bld) [Volume fraction] 40.0 % 37-47 [facility] INR in Blood by Coagulation assayOrdered By: Riccardo Hillman on 06-12-2023 INR Coag (Bld) [Relative time] 1.0 {INR} [facility] Laboratory - Chemistry and C hemistry - challengeOrdered By: Riccardo Hillman on 06-12-2023 CO2 [Moles/Vol] 27.0 mmol/L 21.0-32.0 [facility] Natriuretic peptide B (Bld) [Mass/Vol] 596.3 pg/mL 0-100 [facility] Urea nitrogen/Creatinine [Mass ratio] 12.0 mg/mg 10-20 [facility] Laboratory - CoagulationOrde red By: Riccardo Hillman on 06-12-2023 aPTT Coag (Bld) [Time] 27.5 s 24.1-36.2 [facility] PT Coag (PPP) [Time] 12.7 s 11.7-14.9 [facility] Laboratory - Hematology and Cell countsOrdered By: Riccardo Hillman on 06-12-2023 Erythrocyte distribution width (RBC) [Entitic vol] 41.9 fL 35.1-43.9 [facility] Erythrocyte distribution width (RBC) [Ratio] 14.4 % 11.6-14.6 [facility] Immature granulocytes/100 WBC (Bld) 0.300 % 0.0-0.9 [facility] Comment on above: IG% - Immature Granu locytes (promyelocytes, myelocytes and metamyelocytes) > 1% indicates that a LEFT SHIFT is Present. MCH (RBC) [Entitic mass] 25.8 pg 27.0-32.0 [facility] Nucleated RBC/100 WBC (Bld) [Ratio] 0 % 0-5 [facility] MCHC Auto (RBC) [Mass/Vol]Or dered By: Riccardo Hillman on 06-12-2023 MCHC (RBC) [Mass/Vol] 31.8 g/dL 32-36 [facility] No Panel InformationOrdered By: Riccardo Hillman on 06-12-2023 Estimated Creatinine Clearance Calc 140.88 ml/min [facility] Estimated GFR (MDRD) Amer 105 mL/min >60 [facility] Comment on above: GFR Calc Estimated GFR (MDRD) Non-Af Amer 86 mL/min >60 [facility] Comment on above: Non- GFR Calc Troponin I High Sensitivity 22 pg/mL 3.0-54.0 [facility] Comment on above: Please Note: New Junie t Units and Gender Specific Reference Ranges. For more information see Policy Stat Procedure [place] High Sensitivity Troponin (TNIH) and attachments. Platelets bldOrdered By: Guerita Hillman on 06-12-2023 Platelets (Bld) [#/Vol] 150 10*3/uL 150-450 [facility] Serum or plasma calcium xiomara urement (mass/volume)Ordered By: Riccardo Hillman on 06-12-2023 Calcium [Mass/Vol] 9.1 mg/dL 8.5-10.1 [facility] Serum or plasma creatinine m easurement (mass/volume)Ordered By: Riccardo Hillman on 06-12-2023 Creatinine [Mass/Vol] 0.75 mg/dL 0.55-1.02 [facility] Comment on above: The validity of the calculated GFR & GFRAA in patients over 70 years has not been determined. Clinical correlation is essential. Serum or plasma urea nitroge n measurement (mass/volume)Ordered By: Riccardo Hillman on 06-12-2023 Urea nitrogen [Mass/Vol] 9 mg/dL 7-18 [facility] Thin prep Papanicolaou smear with manual screeningOrdered By: Riccardo Hillman on 06-12-2023 Thin prep Papanicolaou smear with manual screening 6 5-15 [facility] Absolute lymphocyte countOrd ered By: Ananda Coyle on 05-26-2023 Lymphocytes Auto (Unsp spec) [#/Vol] 1.00 10*3/uL 0.83-4.51 [facility] Basophil percentageOrdered B y: Ananda Coyle on 05-26-2023 Basophils/100 WBC (Bld) 0.8 % 0-1 [facility] Chloride [Moles/Vol] 103 mmol/L 98-107 [facility] Eosinophils/100 WBC (Bld) 1.3 % 0-5 [facility] Glucose [Mass/Vol] 247 mg/dL 74-106 [facility] Comment on above: Glucose result great er than or equal to 200 mg/dLsuggests DIABETES MELLITUS per A.D.A. criteria. Neutrophils (Bld) [#/Vol] 7.5 10*3/uL 2.0-7.7 [facility] Neutrophils/100 WBC (Bld) 82.1 % 47-70 [facility] Potassium [Moles/Vol] 3.2 mmol/L 3.5-5.1 [facility] Sodium [Moles/Vol] 139 mmol/L 136-145 [facility] WBC (Bld) [#/Vol] 9.1 10*3/uL 4.4-11.0 [facility] Blood erythrocytes count (nu mber/volume)Ordered By: Ananda Coyle on 05-26-2023 RBC (Bld) [#/Vol] 5.34 10*6/uL 4.2-5.4 [facility] Blood hemoglobin measurement (mass/volume)Ordered By: Ananda Coyle on 05-26-2023 Hemoglobin (Bld) [Mass/Vol] 13.9 g/dL 12.0-15.0 [facility] Blood lymphocytes/100 leukoc ytesOrdered By: Ananda Coyle on 05-26-2023 Lymphocytes/100 WBC (Bld) 11.0 % 19-41 [facility] Blood monocytes/100 leukocyt esOrdered By: Ananda Coyle on 05-26-2023 Monocytes/100 WBC (Bld) 4.5 % 0-10 [facility] Blood platelet mean volumeOr dered By: Ananda Coyle on 05-26-2023 Platelet mean volume (Bld) [Entitic vol] 9.8 fL 6.2-12.0 [facility] Determination of erythrocyte mean corpuscular volume (MCV)Ordered By: Ananda Coyle on 05-26-2023 MCV (RBC) [Entitic vol] 82.0 fL 81-99 [facility] Hematocrit Auto (Bld) [Volum e fraction]Ordered By: Ananda Coyle on 05-26-2023 Hematocrit (Bld) [Volume fraction] 43.8 % 37-47 [facility] Laboratory - Chemistry and C hemistry - challengeOrdered By: Ananda Coyle on 05-26-2023 CO2 [Moles/Vol] 31.0 mmol/L 21.0-32.0 [facility] Urea nitrogen/Creatinine [Mass ratio] 7.3 mg/mg 10-20 [facility] Laboratory - Hematology and Cell countsOrdered By: Ananda Coyle on 05-26-2023 Erythrocyte distribution width (RBC) [Entitic vol] 42.0 fL 35.1-43.9 [facility] Erythrocyte distribution width (RBC) [Ratio] 14.4 % 11.6-14.6 [facility] Immature granulocytes/100 WBC (Bld) 0.300 % 0.0-0.9 [facility] Comment on above: IG% - Immature Granu locytes (promyelocytes, myelocytes and metamyelocytes) > 1% indicates that a LEFT SHIFT is Present. MCH (RBC) [Entitic mass] 26.0 pg 27.0-32.0 [facility] Nucleated RBC/100 WBC (Bld) [Ratio] 0 % 0-5 [facility] MCHC Auto (RBC) [Mass/Vol]Or dered By: Ananda Coyle on 05-26-2023 MCHC (RBC) [Mass/Vol] 31.7 g/dL 32-36 [facility] No Panel InformationOrdered By: Ananda Coyle on 05-26-2023 Estimated Creatinine Clearance Calc 95.18 ml/min [facility] Estimated GFR (MDRD) Amer 116 mL/min >60 [facility] Comment on above: GFR Calc Estimated GFR (MDRD) Non-Af Amer 96 mL/min >60 [facility] Comment on above: Non- GFR Calc Platelets bldOrdered By: Andrew Coyle on 05-26-2023 Platelets (Bld) [#/Vol] 220 10*3/uL 150-450 [facility] Serum or plasma calcium xiomara urement (mass/volume)Ordered By: Ananda Coyle on 05-26-2023 Calcium [Mass/Vol] 9.1 mg/dL 8.5-10.1 [facility] Serum or plasma creatinine m easurement (mass/volume)Ordered By: Ananda Coyle on 05-26-2023 Creatinine [Mass/Vol] 0.68 mg/dL 0.55-1.02 [facility] Comment on above: The validity of the calculated GFR & GFRAA in patients over 70 years has not been determined. Clinical correlation is essential. Serum or plasma urea nitroge n measurement (mass/volume)Ordered By: Ananda Coyle on 05-26-2023 Urea nitrogen [Mass/Vol] 5 mg/dL 7-18 [facility] Thin prep Papanicolaou smear with manual screeningOrdered By: Ananda Coyle on 05-26-2023 Thin prep Papanicolaou smear with manual screening 5 5-15 [facility] Absolute lymphocyte countOrd ered By: Vidal Solorio on 05-22-2023 Lymphocytes Auto (Unsp spec) [#/Vol] 1.25 10*3/uL 0.83-4.51 [facility] Basophil percentageOrdered B y: Vidal Solorio on 05-22-2023 Basophils/100 WBC (Bld) 0.7 % 0-1 [facility] Chloride [Moles/Vol] 102 mmol/L 98-107 [facility] Eosinophils/100 WBC (Bld) 2.0 % 0-5 [facility] Glucose [Mass/Vol] 323 mg/dL 74-106 [facility] Comment on above: Glucose result great er than or equal to 200 mg/dLsuggests DIABETES MELLITUS per A.D.A. criteria. Neutrophils (Bld) [#/Vol] 6.3 10*3/uL 2.0-7.7 [facility] Neutrophils/100 WBC (Bld) 76.7 % 47-70 [facility] Potassium [Moles/Vol] 3.9 mmol/L 3.5-5.1 [facility] Sodium [Moles/Vol] 136 mmol/L 136-145 [facility] WBC (Bld) [#/Vol] 8.1 10*3/uL 4.4-11.0 [facility] Blood erythrocytes count (nu mber/volume)Ordered By: Vidal Solorio on 05-22-2023 RBC (Bld) [#/Vol] 4.97 10*6/uL 4.2-5.4 [facility] Blood hemoglobin measurement (mass/volume)Ordered By: Vidal Solorio on 05-22-2023 Hemoglobin (Bld) [Mass/Vol] 12.9 g/dL 12.0-15.0 [facility] Blood lymphocytes/100 leukoc ytesOrdered By: Vidal Solorio on 05-22-2023 Lymphocytes/100 WBC (Bld) 15.4 % 19-41 [facility] Blood monocytes/100 leukocyt esOrdered By: Vidal Solorio on 05-22-2023 Monocytes/100 WBC (Bld) 4.8 % 0-10 [facility] Blood platelet mean volumeOr dered By: Vidal Solorio on 05-22-2023 Platelet mean volume (Bld) [Entitic vol] 10.6 fL 6.2-12.0 [facility] Determination of erythrocyte mean corpuscular volume (MCV)Ordered By: Vidal Solorio on 05-22-2023 MCV (RBC) [Entitic vol] 82.1 fL 81-99 [facility] Hematocrit Auto (Bld) [Volum e fraction]Ordered By: Vidal Solorio on 05-22-2023 Hematocrit (Bld) [Volume fraction] 40.8 % 37-47 [facility] Laboratory - Chemistry and C hemistry - challengeOrdered By: Vidal Solorio on 05-22-2023 CO2 [Moles/Vol] 30.0 mmol/L 21.0-32.0 [facility] Urea nitrogen/Creatinine [Mass ratio] 11.6 mg/mg 10-20 [facility] Laboratory - Hematology and Cell countsOrdered By: Vidal Solorio on 05-22-2023 Erythrocyte distribution width (RBC) [Entitic vol] 41.3 fL 35.1-43.9 [facility] Erythrocyte distribution width (RBC) [Ratio] 14.1 % 11.6-14.6 [facility] Immature granulocytes/100 WBC (Bld) 0.400 % 0.0-0.9 [facility] Comment on above: IG% - Immature Granu locytes (promyelocytes, myelocytes and metamyelocytes) > 1% indicates that a LEFT SHIFT is Present. MCH (RBC) [Entitic mass] 26.0 pg 27.0-32.0 [facility] Nucleated RBC/100 WBC (Bld) [Ratio] 0 % 0-5 [facility] MCHC Auto (RBC) [Mass/Vol]Or dered By: Vidal Solorio on 05-22-2023 MCHC (RBC) [Mass/Vol] 31.6 g/dL 32-36 [facility] No Panel InformationOrdered By: Vidal Solorio on 05-22-2023 Estimated Creatinine Clearance Calc 82.98 ml/min [facility] Estimated GFR (MDRD) Amer 100 mL/min >60 [facility] Comment on above: GFR Calc Estimated GFR (MDRD) Non-Af Amer 83 mL/min >60 [facility] Comment on above: Non- GFR Calc Platelets bldOrdered By: Roxi Solorio on 05-22-2023 Platelets (Bld) [#/Vol] 196 10*3/uL 150-450 [facility] Serum or plasma calcium xiomara urement (mass/volume)Ordered By: Vidal Solorio on 05-22-2023 Calcium [Mass/Vol] 9.2 mg/dL 8.5-10.1 [facility] Serum or plasma creatinine m easurement (mass/volume)Ordered By: Vidal Solorio on 05-22-2023 Creatinine [Mass/Vol] 0.78 mg/dL 0.55-1.02 [facility] Comment on above: The validity of the calculated GFR & GFRAA in patients over 70 years has not been determined. Clinical correlation is essential. Serum or plasma urea nitroge n measurement (mass/volume)Ordered By: Vidal Solorio on 05-22-2023 Urea nitrogen [Mass/Vol] 9 mg/dL 7-18 [facility] Thin prep Papanicolaou smear with manual screeningOrdered By: Vidal Solorio on 05-22-2023 Thin prep Papanicolaou smear with manual screening 4 5-15 [facility] Absolute lymphocyte countOrd ered By: Brenda Posadas on 05-07-2023 Lymphocytes Auto (Unsp spec) [#/Vol] 1.39 10*3/uL 0.83-4.51 [facility] Basophil percentageOrdered B y: Brenda Posadas on 05-07-2023 Basophils/100 WBC (Bld) 1.1 % 0-1 [facility] Chloride [Moles/Vol] 102 mmol/L 98-107 [facility] Eosinophils/100 WBC (Bld) 3.0 % 0-5 [facility] Glucose [Mass/Vol] 85 mg/dL 74-106 [facility] Neutrophils (Bld) [#/Vol] 4.2 10*3/uL 2.0-7.7 [facility] Neutrophils/100 WBC (Bld) 66.3 % 47-70 [facility] Potassium [Moles/Vol] 4.2 mmol/L 3.5-5.1 [facility] Sodium [Moles/Vol] 136 mmol/L 136-145 [facility] WBC (Bld) [#/Vol] 6.3 10*3/uL 4.4-11.0 [facility] Blood erythrocytes count (nu mber/volume)Ordered By: Brenda Posadas on 05-07-2023 RBC (Bld) [#/Vol] 5.19 10*6/uL 4.2-5.4 [facility] Blood hemoglobin measurement (mass/volume)Ordered By: Brenda Posadas on 05-07-2023 Hemoglobin (Bld) [Mass/Vol] 13.5 g/dL 12.0-15.0 [facility] Blood lymphocytes/100 leukoc ytesOrdered By: Brenda Posadas on 05-07-2023 Lymphocytes/100 WBC (Bld) 22.0 % 19-41 [facility] Blood monocytes/100 leukocyt esOrdered By: Brenda Posadas on 05-07-2023 Monocytes/100 WBC (Bld) 7.3 % 0-10 [facility] Blood platelet mean volumeOr dered By: Brenda Posadas on 05-07-2023 Platelet mean volume (Bld) [Entitic vol] 10.5 fL 6.2-12.0 [facility] Determination of erythrocyte mean corpuscular volume (MCV)Ordered By: Brenda Posadas on 05-07-2023 MCV (RBC) [Entitic vol] 83.8 fL 81-99 [facility] Glucose Glucometer (BldC) [M ass/Vol]Ordered By: Latricia Aaron on 05-07-2023 Glucose [Mass/Vol] 229 mg/dL 74-106 [facility] Comment on above: MANAGEMENT OF PATIEN T CARE PER NURSING PROTOCOL Hematocrit Auto (Bld) [Volum e fraction]Ordered By: Brenda Posadas on 05-07-2023 Hematocrit (Bld) [Volume fraction] 43.5 % 37-47 [facility] Laboratory - Chemistry and C hemistry - challengeOrdered By: Brenda Posadas on 05-07-2023 CO2 [Moles/Vol] 26.0 mmol/L 21.0-32.0 [facility] Urea nitrogen/Creatinine [Mass ratio] 20.5 mg/mg 10-20 [facility] Laboratory - Hematology and Cell countsOrdered By: Brenda Posadas on 05-07-2023 Erythrocyte distribution width (RBC) [Entitic vol] 42.9 fL 35.1-43.9 [facility] Erythrocyte distribution width (RBC) [Ratio] 14.1 % 11.6-14.6 [facility] Immature granulocytes/100 WBC (Bld) 0.300 % 0.0-0.9 [facility] Comment on above: IG% - Immature Granu locytes (promyelocytes, myelocytes and metamyelocytes) > 1% indicates that a LEFT SHIFT is Present. MCH (RBC) [Entitic mass] 26.0 pg 27.0-32.0 [facility] Nucleated RBC/100 WBC (Bld) [Ratio] 0 % 0-5 [facility] MCHC Auto (RBC) [Mass/Vol]Or dered By: Brenda Posadas on 05-07-2023 MCHC (RBC) [Mass/Vol] 31.0 g/dL 32-36 [facility] No Panel InformationOrdered By: Brenda Posadas on 05-07-2023 Estimated Creatinine Clearance Calc 88.66 ml/min [facility] Estimated GFR (MDRD) Amer 108 mL/min >60 [facility] Comment on above: GFR Calc Estimated GFR (MDRD) Non-Af Amer 89 mL/min >60 [facility] Comment on above: Non- GFR Calc Platelets bldOrdered By: [place] Posadas on 05-07-2023 Platelets (Bld) [#/Vol] 202 10*3/uL 150-450 [facility] Serum or plasma calcium xiomara urement (mass/volume)Ordered By: Brenda Posadas on 05-07-2023 Calcium [Mass/Vol] 8.7 mg/dL 8.5-10.1 [facility] Serum or plasma creatinine m easurement (mass/volume)Ordered By: Brenda Posadas on 05-07-2023 Creatinine [Mass/Vol] 0.73 mg/dL 0.55-1.02 [facility] Comment on above: The validity of the calculated GFR & GFRAA in patients over 70 years has not been determined. Clinical correlation is essential. Serum or plasma urea nitroge n measurement (mass/volume)Ordered By: Brenda Posadas on 05-07-2023 Urea nitrogen [Mass/Vol] 15 mg/dL 7-18 [facility] Thin prep Papanicolaou smear with manual screeningOrdered By: Brenda Posadas on 05-07-2023 Thin prep Papanicolaou smear with manual screening 8 5-15 [facility] Laboratory - Chemistry and C hemistry - challengeOrdered By: Lei Justin on 05-04-2023 Magnesium [Mass/Vol] 2.1 mg/dL 1.6-2.6 [facility] No Panel InformationOrdered By: Brenda Posadas on 05-04-2023 Troponin I High Sensitivity 13 pg/mL 3.0-54.0 [facility] Comment on above: Please Note: New Junie t Units and Gender Specific Reference Ranges. For more information see Policy Stat Procedure [place] High Sensitivity Troponin (TNIH) and attachments. Absolute lymphocyte countOrd ered By: Ananda Coyle on 05-03-2023 Lymphocytes Auto (Unsp spec) [#/Vol] 1.07 10*3/uL 0.83-4.51 [facility] Basophil percentageOrdered B y: Ananda Coyle on 05-03-2023 Basophils/100 WBC (Bld) 0.9 % 0-1 [facility] Chloride [Moles/Vol] 106 mmol/L 98-107 [facility] Eosinophils/100 WBC (Bld) 3.4 % 0-5 [facility] Glucose [Mass/Vol] 323 mg/dL 74-106 [facility] Comment on above: Glucose result great er than or equal to 200 mg/dLsuggests DIABETES MELLITUS per A.D.A. criteria. Neutrophils (Bld) [#/Vol] 6.1 10*3/uL 2.0-7.7 [facility] Neutrophils/100 WBC (Bld) 77.6 % 47-70 [facility] Potassium [Moles/Vol] 3.6 mmol/L 3.5-5.1 [facility] Sodium [Moles/Vol] 138 mmol/L 136-145 [facility] WBC (Bld) [#/Vol] 7.9 10*3/uL 4.4-11.0 [facility] Blood erythrocytes count (nu mber/volume)Ordered By: Ananda Coyle on 05-03-2023 RBC (Bld) [#/Vol] 4.86 10*6/uL 4.2-5.4 [facility] Blood hemoglobin measurement (mass/volume)Ordered By: Ananda Coyle on 05-03-2023 Hemoglobin (Bld) [Mass/Vol] 12.6 g/dL 12.0-15.0 [facility] Blood lymphocytes/100 leukoc ytesOrdered By: Ananda Coyle on 05-03-2023 Lymphocytes/100 WBC (Bld) 13.6 % 19-41 [facility] Blood monocytes/100 leukocyt esOrdered By: Ananda Coyle on 05-03-2023 Monocytes/100 WBC (Bld) 3.9 % 0-10 [facility] Blood platelet mean volumeOr dered By: Ananda Coyle on 05-03-2023 Platelet mean volume (Bld) [Entitic vol] 9.8 fL 6.2-12.0 [facility] Determination of erythrocyte mean corpuscular volume (MCV)Ordered By: Ananda Coyle on 05-03-2023 MCV (RBC) [Entitic vol] 82.5 fL 81-99 [facility] Hematocrit Auto (Bld) [Volum e fraction]Ordered By: Ananda Coyle on 05-03-2023 Hematocrit (Bld) [Volume fraction] 40.1 % 37-47 [facility] Influenza virus A and B and SARS-CoV-2 (COVID-19) Ag panel - Upper respiratory specimOrdered By: Ananda Coyle on 05-03-2023 SARS-CoV-2 (COVID-19) RNA CRISSY+probe Ql (Resp) [facility] - Chemistry and C hemistry - challengeOrdered By: Ananda Coyle on 05-03-2023 CO2 [Moles/Vol] 29.0 mmol/L 21.0-32.0 [facility] Natriuretic peptide B (Bld) [Mass/Vol] 941.8 pg/mL 0-100 [facility] Urea nitrogen/Creatinine [Mass ratio] 13.0 mg/mg 10-20 [facility] - Hematology and Cell countsOrdered By: Ananda Coyle on 05-03-2023 Erythrocyte distribution width (RBC) [Entitic vol] 41.4 fL 35.1-43.9 [facility] Erythrocyte distribution width (RBC) [Ratio] 14.2 % 11.6-14.6 [facility] Immature granulocytes/100 WBC (Bld) 0.600 % 0.0-0.9 [facility] Comment on above: IG% - Immature Granu locytes (promyelocytes, myelocytes and metamyelocytes) > 1% indicates that a LEFT SHIFT is Present. MCH (RBC) [Entitic mass] 25.9 pg 27.0-32.0 [facility] Nucleated RBC/100 WBC (Bld) [Ratio] 0 % 0-5 [facility] MCHC Auto (RBC) [Mass/Vol]Or dered By: Ananda Coyle on 05-03-2023 MCHC (RBC) [Mass/Vol] 31.4 g/dL 32-36 [facility] No Panel InformationOrdered By: Ananda Coyle on 05-03-2023 Estimated Creatinine Clearance Calc 84.06 ml/min [facility] Estimated GFR (MDRD) Amer 102 mL/min >60 [facility] Comment on above: GFR Calc Estimated GFR (MDRD) Non-Af Amer 84 mL/min >60 [facility] Comment on above: Non- GFR Calc Troponin I High Sensitivity 14 pg/mL 3.0-54.0 [facility] Comment on above: Please Note: New Junie t Units and Gender Specific Reference Ranges. For more information see Policy Stat Procedure [place] High Sensitivity Troponin (TNIH) and attachments. Platelets bldOrdered By: Andrew Coyle on 05-03-2023 Platelets (Bld) [#/Vol] 210 10*3/uL 150-450 [facility] Serum or plasma calcium xiomara urement (mass/volume)Ordered By: Ananda Coyle on 05-03-2023 Calcium [Mass/Vol] 8.6 mg/dL 8.5-10.1 [facility] Serum or plasma creatinine m easurement (mass/volume)Ordered By: Ananda Coyle on 05-03-2023 Creatinine [Mass/Vol] 0.77 mg/dL 0.55-1.02 [facility] Comment on above: The validity of the calculated GFR & GFRAA in patients over 70 years has not been determined. Clinical correlation is essential. Serum or plasma urea nitroge n measurement (mass/volume)Ordered By: Ananda Coyle on 05-03-2023 Urea nitrogen [Mass/Vol] 10 mg/dL 7-18 [facility] Thin prep Papanicolaou smear with manual screeningOrdered By: Ananda Coyle on 05-03-2023 Thin prep Papanicolaou smear with manual screening 3 5-15 [facility] Upper respiratory specimen i nfluenza A virus, influenza B virus, and severe acute resOrdered By: Ananda Coyle on 05-03-2023 Upper respiratory specimen influenza A virus, influenza B virus, and severe acute res [facility] Upper respiratory specimen i nfluenza A virus, influenza B virus, and severe acute respiratory syndromOrdered By: Ananda Coyle on 05-03-2023 Upper respiratory specimen influenza A virus, influenza B virus, and severe acute respiratory syndrom [facility] Whole blood hemoglobin A1c/t otal hemoglobin ratio (mass fraction)Ordered By: Lei Justin on 05-03-2023 HbA1c (Bld) [Mass fraction] 11.0 % 3.8-5.6 [facility] Comment on above: Normal < 5.7 % Predi abetic 5.7 - 6.4 % Diabetic >or= 6.5 % Please note range changes. Basophil percentageOrdered B y: Lino Sousa on 04-18-2023 Amylase [Catalytic activity/Vol] 45 U/L 25-115 [facility] Bilirubin [Mass/Vol] 0.90 mg/dL 0.20-1.00 [facility] Comment on above: For patients on eltr ombopag therapy, use of Dimension [place] TBIL is not recommended. Chloride [Moles/Vol] 103 mmol/L 98-107 [facility] Glucose [Mass/Vol] 279 mg/dL 74-106 [facility] Comment on above: Glucose result great er than or equal to 200 mg/dLsuggests DIABETES MELLITUS per A.D.A. criteria. Potassium [Moles/Vol] 4.1 mmol/L 3.5-5.1 [facility] Protein [Mass/Vol] 7.5 g/dL 6.4-8.2 [facility] Sodium [Moles/Vol] 137 mmol/L 136-145 [facility] Laboratory - Chemistry and C hemistry - challengeOrdered By: Lino Sousa on 04-18-2023 ALP [Catalytic activity/Vol] 104 U/L 45-117 [facility] ALT [Catalytic activity/Vol] 13 U/L 13-56 [facility] CO2 [Moles/Vol] 30.0 mmol/L 21.0-32.0 [facility] Globulin (S) [Mass/Vol] 4.5 g/dL 2.2-4.2 [facility] Lipase [Catalytic activity/Vol] 27 U/L 13-75 [facility] Comment on above: Please note:LIPASE r evised reference range effective 22. New Lipase methodology. Expected to produce lower values than the previous assay method. NEW Reference Range: 13 - 75 U/L Urea nitrogen/Creatinine [Mass ratio] 12.8 mg/mg 10-20 [facility] No Panel InformationOrdered By: Lino Sousa on 04-18-2023 Estimated GFR (MDRD) Amer 90 mL/min >60 [facility] Comment on above: GFR Calc Estimated GFR (MDRD) Non-Af Amer 74 mL/min >60 [facility] Comment on above: Non- GFR Calc Serum or plasma albumin xiomara urement (mass/volume)Ordered By: Lino Sousa on 04-18-2023 Albumin [Mass/Vol] 3.0 g/dL 3.2-5.0 [facility] Serum or plasma albumin/glob ulin mass ratioOrdered By: Lino Sousa on 04-18-2023 Albumin/Globulin [Mass ratio] 0.7 {ratio} 0.9-2.4 [facility] Serum or plasma calcium xiomara urement (mass/volume)Ordered By: Lino Sousa on 04-18-2023 Calcium [Mass/Vol] 9.0 mg/dL 8.5-10.1 [facility] Serum or plasma creatinine m easurement (mass/volume)Ordered By: Lino Sousa on 04-18-2023 Creatinine [Mass/Vol] 0.86 mg/dL 0.55-1.02 [facility] Comment on above: The validity of the calculated GFR & GFRAA in patients over 70 years has not been determined. Clinical correlation is essential. Serum or plasma urea nitroge n measurement (mass/volume)Ordered By: Lino Sousa on 04-18-2023 Urea nitrogen [Mass/Vol] 11 mg/dL 7-18 [facility] Thin prep Papanicolaou smear with manual screeningOrdered By: Lino Sousa on 04-18-2023 Thin prep Papanicolaou smear with manual screening 12 U/L 15-37 [facility] Thin prep Papanicolaou smear with manual screening 4 5-15 [facility] Absolute lymphocyte countOrd ered By: Brandon Adames on 02-03-2023 Lymphocytes Auto (Unsp spec) [#/Vol] 1.68 10*3/uL 0.83-4.51 [facility] Basophil percentageOrdered B y: Brandon Adames on 02-03-2023 Basophils/100 WBC (Bld) 1.0 % 0-1 [facility] Chloride [Moles/Vol] 106 mmol/L 98-107 [facility] Eosinophils/100 WBC (Bld) 3.2 % 0-5 [facility] Glucose [Mass/Vol] 177 mg/dL 74-106 [facility] Comment on above: Fasting Glucose resu lt greater than or equal to 126 mg/dL suggests DIABETES MELLITUS per A.D.A. criteria. Neutrophils (Bld) [#/Vol] 5.9 10*3/uL 2.0-7.7 [facility] Neutrophils/100 WBC (Bld) 70.1 % 47-70 [facility] Potassium [Moles/Vol] 3.6 mmol/L 3.5-5.1 [facility] Sodium [Moles/Vol] 138 mmol/L 136-145 [facility] WBC (Bld) [#/Vol] 8.4 10*3/uL 4.4-11.0 [facility] Blood erythrocytes count (nu mber/volume)Ordered By: Brandon dAames on 02-03-2023 RBC (Bld) [#/Vol] 4.78 10*6/uL 4.2-5.4 [facility] Blood hemoglobin measurement (mass/volume)Ordered By: Brandon Adames on 02-03-2023 Hemoglobin (Bld) [Mass/Vol] 13.1 g/dL 12.0-15.0 [facility] Blood lymphocytes/100 leukoc ytesOrdered By: Brandon Adames on 02-03-2023 Lymphocytes/100 WBC (Bld) 20.1 % 19-41 [facility] Blood monocytes/100 leukocyt esOrdered By: Brandon Adames on 02-03-2023 Monocytes/100 WBC (Bld) 5.4 % 0-10 [facility] Blood platelet mean volumeOr dered By: Brandon Adames on 02-03-2023 Platelet mean volume (Bld) [Entitic vol] 9.9 fL 6.2-12.0 [facility] Determination of erythrocyte mean corpuscular volume (MCV)Ordered By: Brandon Adames on 02-03-2023 MCV (RBC) [Entitic vol] 86.0 fL 81-99 [facility] Glucose Glucometer (BldC) [M ass/Vol]Ordered By: Sabina Rosenberg on 02-03-2023 Glucose [Mass/Vol] 247 mg/dL 74-106 [facility] Comment on above: MANAGEMENT OF PATIEN T CARE PER NURSING PROTOCOL Hematocrit Auto (Bld) [Volum e fraction]Ordered By: Brandon Adames on 02-03-2023 Hematocrit (Bld) [Volume fraction] 41.1 % 37-47 [facility] - Chemistry and C hemistry - challengeOrdered By: Brandon Adames on 02-03-2023 CO2 [Moles/Vol] 27.0 mmol/L 21.0-32.0 [facility] Urea nitrogen/Creatinine [Mass ratio] 12.6 mg/mg 10-20 [facility] - Hematology and Cell countsOrdered By: Brandon Adames on 02-03-2023 Erythrocyte distribution width (RBC) [Entitic vol] 40.4 fL 35.1-43.9 [facility] Erythrocyte distribution width (RBC) [Ratio] 13.1 % 11.6-14.6 [facility] Immature granulocytes/100 WBC (Bld) 0.200 % 0.0-0.9 [facility] Comment on above: IG% - Immature Granu locytes (promyelocytes, myelocytes and metamyelocytes) > 1% indicates that a LEFT SHIFT is Present. MCH (RBC) [Entitic mass] 27.4 pg 27.0-32.0 [facility] Nucleated RBC/100 WBC (Bld) [Ratio] 0 % 0-5 [facility] MCHC Auto (RBC) [Mass/Vol]Or dered By: Brandon Adames on 02-03-2023 MCHC (RBC) [Mass/Vol] 31.9 g/dL 32-36 [facility] No Panel InformationOrdered By: Brandon Adames on 02-03-2023 Estimated Creatinine Clearance Calc 115.58 ml/min [facility] Estimated GFR (MDRD) Amer 148 mL/min >60 [facility] Comment on above: GFR Calc Estimated GFR (MDRD) Non-Af Amer 122 mL/min >60 [facility] Comment on above: Non- GFR Calc No Panel InformationOrdered By: Michael Kinsey on 02-03-2023 Troponin I High Sensitivity 26 pg/mL 3.0-54.0 [facility] Comment on above: Please Note: New Junie t Units and Gender Specific Reference Ranges. For more information see Policy Stat Procedure [place] High Sensitivity Troponin (TNIH) and attachments. Platelets bldOrdered By: Yamil Adames on 02-03-2023 Platelets (Bld) [#/Vol] 226 10*3/uL 150-450 [facility] Serum or plasma calcium xiomara urement (mass/volume)Ordered By: Brandon Adames on 02-03-2023 Calcium [Mass/Vol] 8.3 mg/dL 8.5-10.1 [facility] Serum or plasma creatinine m easurement (mass/volume)Ordered By: Brandon Adames on 02-03-2023 Creatinine [Mass/Vol] 0.56 mg/dL 0.55-1.02 [facility] Comment on above: The validity of the calculated GFR & GFRAA in patients over 70 years has not been determined. Clinical correlation is essential. Serum or plasma urea nitroge n measurement (mass/volume)Ordered By: Brandon Adames on 02-03-2023 Urea nitrogen [Mass/Vol] 7 mg/dL 7-18 [facility] Thin prep Papanicolaou smear with manual screeningOrdered By: Brandon Adames on 02-03-2023 Thin prep Papanicolaou smear with manual screening 5 5-15 [facility] Absolute lymphocyte countOrd ered By: Zack Card on 02-02-2023 Lymphocytes Auto (Unsp spec) [#/Vol] 1.45 10*3/uL 0.83-4.51 [facility] Basophil percentageOrdered B y: Zack Card on 02-02-2023 Basophils/100 WBC (Bld) 1.1 % 0-1 [facility] Chloride [Moles/Vol] 104 mmol/L 98-107 [facility] Eosinophils/100 WBC (Bld) 3.9 % 0-5 [facility] Glucose [Mass/Vol] 249 mg/dL 74-106 [facility] Comment on above: Glucose result great er than or equal to 200 mg/dLsuggests DIABETES MELLITUS per A.D.A. criteria. Neutrophils (Bld) [#/Vol] 5.5 10*3/uL 2.0-7.7 [facility] Neutrophils/100 WBC (Bld) 70.1 % 47-70 [facility] Potassium [Moles/Vol] 3.6 mmol/L 3.5-5.1 [facility] Sodium [Moles/Vol] 138 mmol/L 136-145 [facility] WBC (Bld) [#/Vol] 7.9 10*3/uL 4.4-11.0 [facility] Blood erythrocytes count (nu mber/volume)Ordered By: Zack Card on 02-02-2023 RBC (Bld) [#/Vol] 4.79 10*6/uL 4.2-5.4 [facility] Blood hemoglobin measurement (mass/volume)Ordered By: Zack Card on 02-02-2023 Hemoglobin (Bld) [Mass/Vol] 13.2 g/dL 12.0-15.0 [facility] Blood lymphocytes/100 leukoc ytesOrdered By: Zack Card on 02-02-2023 Lymphocytes/100 WBC (Bld) 18.4 % 19-41 [facility] Blood monocytes/100 leukocyt esOrdered By: Zack Card on 02-02-2023 Monocytes/100 WBC (Bld) 6.1 % 0-10 [facility] Blood platelet mean volumeOr dered By: Zack Card on 02-02-2023 Platelet mean volume (Bld) [Entitic vol] 10.6 fL 6.2-12.0 [facility] Determination of erythrocyte mean corpuscular volume (MCV)Ordered By: Zack Card on 02-02-2023 MCV (RBC) [Entitic vol] 87.3 fL 81-99 [facility] Hematocrit Auto (Bld) [Volum e fraction]Ordered By: Zack Card on 02-02-2023 Hematocrit (Bld) [Volume fraction] 41.8 % 37-47 [facility] - Chemistry and C hemistry - challengeOrdered By: Zack Card on 02-02-2023 CO2 [Moles/Vol] 30.0 mmol/L 21.0-32.0 [facility] Natriuretic peptide B (Bld) [Mass/Vol] 498.2 pg/mL 0-100 [facility] Urea nitrogen/Creatinine [Mass ratio] 11.7 mg/mg 10-20 [facility] - Hematology and Cell countsOrdered By: Zack Card on 02-02-2023 Erythrocyte distribution width (RBC) [Entitic vol] 41.2 fL 35.1-43.9 [facility] Erythrocyte distribution width (RBC) [Ratio] 13.0 % 11.6-14.6 [facility] Immature granulocytes/100 WBC (Bld) 0.400 % 0.0-0.9 [facility] Comment on above: IG% - Immature Granu locytes (promyelocytes, myelocytes and metamyelocytes) > 1% indicates that a LEFT SHIFT is Present. MCH (RBC) [Entitic mass] 27.6 pg 27.0-32.0 [facility] Nucleated RBC/100 WBC (Bld) [Ratio] 0 % 0-5 [facility] MCHC Auto (RBC) [Mass/Vol]Or dered By: Zack Card on 02-02-2023 MCHC (RBC) [Mass/Vol] 31.6 g/dL 32-36 [facility] No Panel InformationOrdered By: Zack Card on 02-02-2023 Troponin I High Sensitivity 24 pg/mL 3.0-54.0 [facility] Comment on above: Please Note: New Junie t Units and Gender Specific Reference Ranges. For more information see Policy Stat Procedure [place] High Sensitivity Troponin (TNIH) and attachments. D-Dimer Quantitative (PE/DVT) 0.99 FEU/ug/m 0.27-0.49 [facility] Comment on above: D-Dimer ELEVATED (>0 .49): Additional studies and clinicalassessments are indicated to conclude diagnosis of:Deep Vein Thrombosis (DVT) or Pulmonary Embolism (PE) Estimated Creatinine Clearance Calc 90.30 ml/min [facility] Estimated GFR (MDRD) Amer 116 mL/min >60 [facility] Comment on above: GFR Calc Estimated GFR (MDRD) Non-Af Amer 96 mL/min >60 [facility] Comment on above: Non- GFR Calc Platelets bldOrdered By: Sanjay Card on 02-02-2023 Platelets (Bld) [#/Vol] 238 10*3/uL 150-450 [facility] Serum or plasma calcium xiomara urement (mass/volume)Ordered By: Zack Card on 02-02-2023 Calcium [Mass/Vol] 8.9 mg/dL 8.5-10.1 [facility] Serum or plasma creatinine m easurement (mass/volume)Ordered By: Zack Card on 02-02-2023 Creatinine [Mass/Vol] 0.69 mg/dL 0.55-1.02 [facility] Comment on above: The validity of the calculated GFR & GFRAA in patients over 70 years has not been determined. Clinical correlation is essential. Serum or plasma urea nitroge n measurement (mass/volume)Ordered By: Zack Card on 02-02-2023 Urea nitrogen [Mass/Vol] 8 mg/dL 7-18 [facility] Thin prep Papanicolaou smear with manual screeningOrdered By: Zack Card on 02-02-2023 Thin prep Papanicolaou smear with manual screening 4 5-15 [facility] Glucose Glucometer (BldC) [M ass/Vol]Ordered By: Sabina Rosenberg on 01-03-2023 Glucose [Mass/Vol] 154 mg/dL 74-106 [facility] Comment on above: MANAGEMENT OF PATIEN T CARE PER NURSING PROTOCOL Basophil percentageOrdered B y: Sabina Rosenberg on 01-02-2023 Chloride [Moles/Vol] 100 mmol/L 98-107 [facility] Glucose [Mass/Vol] 293 mg/dL 74-106 [facility] Comment on above: Glucose result great er than or equal to 200 mg/dLsuggests DIABETES MELLITUS per A.D.A. criteria. Potassium [Moles/Vol] 3.7 mmol/L 3.5-5.1 [facility] Sodium [Moles/Vol] 136 mmol/L 136-145 [facility] - Chemistry and C hemistry - challengeOrdered By: Sabina Rosenberg on 01-02-2023 CO2 [Moles/Vol] 30.0 mmol/L 21.0-32.0 [facility] Urea nitrogen/Creatinine [Mass ratio] 8.3 mg/mg 10-20 [facility] No Panel InformationOrdered By: Sabina Rosenberg on 01-02-2023 Estimated Creatinine Clearance Calc 86.54 ml/min [facility] Estimated GFR (MDRD) Amer 109 mL/min >60 [facility] Comment on above: GFR Calc Estimated GFR (MDRD) Non-Af Amer 90 mL/min >60 [facility] Comment on above: Non- GFR Calc Serum or plasma calcium xiomara urement (mass/volume)Ordered By: Sabina Rosenberg on 01-02-2023 Calcium [Mass/Vol] 8.7 mg/dL 8.5-10.1 [facility] Serum or plasma creatinine m easurement (mass/volume)Ordered By: Sabina Rosenberg on 01-02-2023 Creatinine [Mass/Vol] 0.72 mg/dL 0.55-1.02 [facility] Comment on above: The validity of the calculated GFR & GFRAA in patients over 70 years has not been determined. Clinical correlation is essential. Serum or plasma urea nitroge n measurement (mass/volume)Ordered By: Sabina Rosenberg on 01-02-2023 Urea nitrogen [Mass/Vol] 6 mg/dL 7-18 [facility] Thin prep Papanicolaou smear with manual screeningOrdered By: Sabina Rosenberg on 01-02-2023 Thin prep Papanicolaou smear with manual screening 6 5-15 [facility] Absolute lymphocyte countOrd ered By: Yvette Hanley on 01-01-2023 Lymphocytes Auto (Unsp spec) [#/Vol] 1.39 10*3/uL 0.83-4.51 [facility] Basophil percentageOrdered B y: Yvette Hanley on 01-01-2023 Basophils/100 WBC (Bld) 0.8 % 0-1 [facility] Chloride [Moles/Vol] 104 mmol/L 98-107 [facility] Eosinophils/100 WBC (Bld) 2.7 % 0-5 [facility] Glucose [Mass/Vol] 344 mg/dL 74-106 [facility] Comment on above: Glucose result great er than or equal to 200 mg/dLsuggests DIABETES MELLITUS per A.D.A. criteria. Neutrophils (Bld) [#/Vol] 6.5 10*3/uL 2.0-7.7 [facility] Neutrophils/100 WBC (Bld) 75.1 % 47-70 [facility] Potassium [Moles/Vol] 4.0 mmol/L 3.5-5.1 [facility] Sodium [Moles/Vol] 136 mmol/L 136-145 [facility] WBC (Bld) [#/Vol] 8.7 10*3/uL 4.4-11.0 [facility] Blood erythrocytes count (nu mber/volume)Ordered By: Yvette Hanley on 01-01-2023 RBC (Bld) [#/Vol] 5.13 10*6/uL 4.2-5.4 [facility] Blood hemoglobin measurement (mass/volume)Ordered By: Yvette Hanley on 01-01-2023 Hemoglobin (Bld) [Mass/Vol] 14.0 g/dL 12.0-15.0 [facility] Blood lymphocytes/100 leukoc ytesOrdered By: Yvette Hanley on 01-01-2023 Lymphocytes/100 WBC (Bld) 16.1 % 19-41 [facility] Blood monocytes/100 leukocyt esOrdered By: Yvette Hanley on 01-01-2023 Monocytes/100 WBC (Bld) 5.0 % 0-10 [facility] Blood platelet mean volumeOr dered By: Yvette Hanley on 01-01-2023 Platelet mean volume (Bld) [Entitic vol] 9.5 fL 6.2-12.0 [facility] Determination of erythrocyte mean corpuscular volume (MCV)Ordered By: Yvette Hanley on 01-01-2023 MCV (RBC) [Entitic vol] 84.2 fL 81-99 [facility] Hematocrit Auto (Bld) [Volum e fraction]Ordered By: Yvette Hanley on 01-01-2023 Hematocrit (Bld) [Volume fraction] 43.2 % 37-47 [facility] Influenza virus A and B and SARS-CoV-2 (COVID-19) Ag panel - Upper respiratory specimOrdered By: [place] Talon on 01-01-2023 SARS-CoV-2 (COVID-19) RNA CRISSY+probe Ql (Resp) [facility] SARS-CoV-2 (COVID-19) RNA CRISSY+probe Ql (Resp) [facility] - Chemistry and C hemistry - challengeOrdered By: Yvette Hanley on 01-01-2023 Natriuretic peptide B (Bld) [Mass/Vol] 573.6 pg/mL 0-100 [facility] CO2 [Moles/Vol] 27.0 mmol/L 21.0-32.0 [facility] Urea nitrogen/Creatinine [Mass ratio] 8.2 mg/mg 10-20 [facility] - Hematology and Cell countsOrdered By: Yvette Hanley on 01-01-2023 Erythrocyte distribution width (RBC) [Entitic vol] 42.1 fL 35.1-43.9 [facility] Erythrocyte distribution width (RBC) [Ratio] 13.7 % 11.6-14.6 [facility] Immature granulocytes/100 WBC (Bld) 0.300 % 0.0-0.9 [facility] Comment on above: IG% - Immature Granu locytes (promyelocytes, myelocytes and metamyelocytes) > 1% indicates that a LEFT SHIFT is Present. MCH (RBC) [Entitic mass] 27.3 pg 27.0-32.0 [facility] Nucleated RBC/100 WBC (Bld) [Ratio] 0 % 0-5 [facility] MCHC Auto (RBC) [Mass/Vol]Or dered By: [facility] Talon on 01-01-2023 MCHC (RBC) [Mass/Vol] 32.4 g/dL 32-36 [facility] No Panel InformationOrdered By: Yvette Hanley on 01-01-2023 Troponin I High Sensitivity 12 pg/mL 3.0-54.0 [facility] Comment on above: Please Note: New Junie t Units and Gender Specific Reference Ranges. For more information see Policy Stat Procedure [place] High Sensitivity Troponin (TNIH) and attachments. Estimated Creatinine Clearance Calc 84.20 ml/min [facility] Estimated GFR (MDRD) Amer 107 mL/min >60 [facility] Comment on above: GFR Calc Estimated GFR (MDRD) Non-Af Amer 88 mL/min >60 [facility] Comment on above: Non- GFR Calc Platelets bldOrdered By: Sallie Talon on 01-01-2023 Platelets (Bld) [#/Vol] 201 10*3/uL 150-450 [facility] Serum or plasma calcium xiomara urement (mass/volume)Ordered By: Yvette Hanley on 01-01-2023 Calcium [Mass/Vol] 8.7 mg/dL 8.5-10.1 [facility] Serum or plasma creatinine m easurement (mass/volume)Ordered By: Yvette Hanley on 01-01-2023 Creatinine [Mass/Vol] 0.74 mg/dL 0.55-1.02 [facility] Comment on above: The validity of the calculated GFR & GFRAA in patients over 70 years has not been determined. Clinical correlation is essential. Serum or plasma urea nitroge n measurement (mass/volume)Ordered By: Yvette Hanley on 01-01-2023 Urea nitrogen [Mass/Vol] 6 mg/dL 7-18 [facility] Thin prep Papanicolaou smear with manual screeningOrdered By: Yvette Hanley on 01-01-2023 Thin prep Papanicolaou smear with manual screening 5 5-15 [facility] Absolute lymphocyte countOrd ered By: Dr. Card on 09-18-2022 Lymphocytes Auto (Unsp spec) [#/Vol] 1.74 10*3/uL 0.83-4.51 [facility] Basophil percentageOrdered B y: Dr. Card on 09-18-2022 Basophil percentage 425 mg/dL 74-106 [facility] Basophil percentage 6.7 g/dL 6.4-8.2 [facility] Basophil percentage 0.70 mg/dL 0.20-1.00 [facility] Basophil percentage 132 mmol/L 136-145 [facility] Basophil percentage 4.7 mmol/L 3.5-5.1 [facility] Basophil percentage 100 mmol/L 98-107 [facility] Basophils (Bld) [#/Vol] 9.5 10*3/uL 4.4-11.0 [facility] Basophils (Bld) [#/Vol] 7.1 10*3/uL 2.0-7.7 [facility] Basophils/100 WBC (Bld) 74.8 % 47-70 [facility] Basophils/100 WBC (Bld) 0.7 % 0-5 [facility] Basophils/100 WBC (Bld) 0.4 % 0-1 [facility] Basophil percentageOrdered B y: Zack Card on 09-18-2022 Bilirubin [Mass/Vol] 0.70 mg/dL 0.20-1.00 [facility] Comment on above: For patients on eltr ombopag therapy, use of Dimension [place] TBIL is not recommended. Chloride [Moles/Vol] 100 mmol/L 98-107 [facility] [place] Glucose [Mass/Vol] 425 mg/dL 74-106 [facility] Comment on above: Glucose result great er than or equal to 200 mg/dLsuggests DIABETES MELLITUS per A.D.A. criteria. Potassium [Moles/Vol] 4.7 mmol/L 3.5-5.1 [facility] Protein [Mass/Vol] 6.7 g/dL 6.4-8.2 [facility] Sodium [Moles/Vol] 132 mmol/L 136-145 [facility] Eosinophils/100 WBC (Bld) 0.7 % 0-5 [facility] Neutrophils (Bld) [#/Vol] 7.1 10*3/uL 2.0-7.7 [facility] Neutrophils/100 WBC (Bld) 74.8 % 47-70 [facility] WBC (Bld) [#/Vol] 9.5 10*3/uL 4.4-11.0 [facility] Blood erythrocytes count (nu mber/volume)Ordered By: Dr. Card on 09-18-2022 RBC (Bld) [#/Vol] 6.20 10*6/uL 4.2-5.4 [facility] Blood hemoglobin measurement (mass/volume)Ordered By: Dr. Card on 09-18-2022 Hemoglobin (Bld) [Mass/Vol] 17.0 g/dL 12.0-15.0 [facility] Blood lymphocytes/100 leukoc ytesOrdered By: Dr. Card on 09-18-2022 Lymphocytes/100 WBC (Bld) 18.4 % 19-41 [facility] Blood monocytes/100 leukocyt esOrdered By: Dr. Card on 09-18-2022 Monocytes/100 WBC (Bld) 5.3 % 0-10 [facility] Blood platelet mean volumeOr dered By: Dr. Card on 09-18-2022 Platelet mean volume (Bld) [Entitic vol] 9.4 fL 6.2-12.0 [facility] Determination of erythrocyte mean corpuscular volume (MCV)Ordered By: Dr. Card on 09-18-2022 MCV (RBC) [Entitic vol] 82.7 fL 81-99 [facility] Direct bilirubinOrdered By: Dr. Card on 09-18-2022 Bilirubin.direct [Mass/Vol] 0.18 mg/dL 0.00-0.30 [facility] Glucose Glucometer (dC) [M ass/Vol]Ordered By: Dr. Card on 09-18-2022 Glucose [Mass/Vol] 281 mg/dL 74-106 [facility] Comment on above: MANAGEMENT OF PATIEN T CARE PER NURSING PROTOCOL Hematocrit Auto (Bld) [Volum e fraction]Ordered By: Dr. Card on 09-18-2022 Hematocrit (Bld) [Volume fraction] 51.3 % 37-47 [facility] - Chemistry and C hemistry - challengeOrdered By: Zack Card on 09-18-2022 ALP [Catalytic activity/Vol] 111 U/L 45-117 [facility] ALT [Catalytic activity/Vol] 19 U/L 13-56 [facility] CO2 [Moles/Vol] 30.0 mmol/L 21.0-32.0 [facility] Globulin (S) [Mass/Vol] 3.9 g/dL 2.2-4.2 [facility] Lipase [Catalytic activity/Vol] 27 U/L 13-75 [facility] Comment on above: Please note:LIPASE r evised reference range effective 22. New Lipase methodology. Expected to produce lower values than the previous assay method. NEW Reference Range: 13 - 75 U/L Urea nitrogen/Creatinine [Mass ratio] 18.2 mg/mg 10-20 [facility] - Hematology and Cell countsOrdered By: Zack Card on 09-18-2022 Erythrocyte distribution width (RBC) [Entitic vol] 38.1 fL 35.1-43.9 [facility] Erythrocyte distribution width (RBC) [Ratio] 12.7 % 11.6-14.6 [facility] Immature granulocytes/100 WBC (Bld) 0.400 % 0.0-0.9 [facility] Comment on above: IG% - Immature Granu locytes (promyelocytes, myelocytes and metamyelocytes) > 1% indicates that a LEFT SHIFT is Present. MCH (RBC) [Entitic mass] 27.4 pg 27.0-32.0 [facility] Nucleated RBC/100 WBC (Bld) [Ratio] 0 % 0-5 [facility] MCHC Auto (RBC) [Mass/Vol]Or dered By: Dr. Card on 09-18-2022 MCHC (RBC) [Mass/Vol] 33.1 g/dL 32-36 [facility] No Panel InformationOrdered By: Zack Card on 09-18-2022 Estimated Creatinine Clearance Calc 62.94 ml/min [facility] Estimated GFR (MDRD) Amer 76 mL/min >60 [facility] Comment on above: GFR Calc Estimated GFR (MDRD) Non-Af Amer 63 mL/min >60 [facility] Comment on above: Non- GFR Calc No Panel InformationOrdered By: Dr. Card on 09-18-2022 63 mL/min >60 [facility] 76 mL/min >60 [facility] 62.94 ml/min [facility] 18.2 RATIO 10-20 [facility] 3.9 g/dL 2.2-4.2 [facility] 27 U/L 13-75 [facility] 111 U/L 45-117 [facility] 19 U/L 13-56 [facility] 30.0 mmol/L 21.0-32.0 [facility] 27.4 pg 27.0-32.0 [facility] 12.7 % 11.6-14.6 [facility] 38.1 fl 35.1-43.9 [facility] 0.400 % 0.0-0.9 [facility] 0 % 0-5 [facility] Platelets bldOrdered By: Dr. Card on 09-18-2022 Platelets (Bld) [#/Vol] 268 10*3/uL 150-450 [facility] Serum or plasma albumin xiomara urement (mass/volume)Ordered By: Dr. Card on 09-18-2022 Albumin [Mass/Vol] 2.8 g/dL 3.2-5.0 [facility] Serum or plasma albumin/glob ulin mass ratioOrdered By: Dr. Card on 09-18-2022 Albumin/Globulin [Mass ratio] 0.7 {ratio} 0.9-2.4 [facility] Serum or plasma calcium xiomara urement (mass/volume)Ordered By: Dr. Card on 09-18-2022 Calcium [Mass/Vol] 9.0 mg/dL 8.5-10.1 [facility] Serum or plasma creatinine m easurement (mass/volume)Ordered By: Dr. Card on 09-18-2022 Creatinine [Mass/Vol] 0.99 mg/dL 0.55-1.02 [facility] Comment on above: The validity of the calculated GFR & GFRAA in patients over 70 years has not been determined. Clinical correlation is essential. Serum or plasma urea nitroge n measurement (mass/volume)Ordered By: Dr. Card on 09-18-2022 Urea nitrogen [Mass/Vol] 18 mg/dL 7-18 [facility] Thin prep Papanicolaou smear with manual screeningOrdered By: Dr. Card on 09-18-2022 Thin prep Papanicolaou smear with manual screening 14 U/L 15-37 [facility] Thin prep Papanicolaou smear with manual screening 2 5-15 [facility] Absolute lymphocyte countOrd ered By: Dr. Black on 09-11-2022 Lymphocytes Auto (Unsp spec) [#/Vol] 1.13 10*3/uL 0.83-4.51 [facility] Basophil percentageOrdered B y: Dr. Black on 09-11-2022 Basophil percentage 325 mg/dL 74-106 [facility] Basophil percentage 7.1 g/dL 6.4-8.2 [facility] Basophil percentage 0.60 mg/dL 0.20-1.00 [facility] Basophil percentage 134 mmol/L 136-145 [facility] Basophil percentage 3.9 mmol/L 3.5-5.1 [facility] Basophil percentage 100 mmol/L 98-107 [facility] Basophil percentage 1.2 mmol/L 0.4-2.0 [facility] Basophils (Bld) [#/Vol] 14.8 10*3/uL 4.4-11.0 [facility] Basophils (Bld) [#/Vol] 12.7 10*3/uL 2.0-7.7 [facility] Basophils/100 WBC (Bld) 85.8 % 47-70 [facility] Basophils/100 WBC (Bld) 0.8 % 0-5 [facility] Basophils/100 WBC (Bld) 0.6 % 0-1 [facility] Bilirubin [Mass/Vol] 0.60 mg/dL 0.20-1.00 [facility] [place] Comment on above: For patients on eltr ombopag therapy, use of Dimension [place] TBIL is not recommended. Chloride [Moles/Vol] 100 mmol/L 98-107 [facility] [place] Eosinophils/100 WBC (Bld) 0.8 % 0-5 [facility] Glucose [Mass/Vol] 325 mg/dL 74-106 [facility] Comment on above: Glucose result great er than or equal to 200 mg/dLsuggests DIABETES MELLITUS per A.D.A. criteria. Lactate [Moles/Vol] 1.2 mmol/L 0.4-2.0 [facility] Neutrophils (Bld) [#/Vol] 12.7 10*3/uL 2.0-7.7 [facility] Neutrophils/100 WBC (Bld) 85.8 % 47-70 [facility] Potassium [Moles/Vol] 3.9 mmol/L 3.5-5.1 [facility] Protein [Mass/Vol] 7.1 g/dL 6.4-8.2 [facility] Sodium [Moles/Vol] 134 mmol/L 136-145 [facility] WBC (Bld) [#/Vol] 14.8 10*3/uL 4.4-11.0 [facility] Basophil percentage 0 SEEN /hpf 0-5 [facility] [place] Bilirubin Test strip Ql (U)O rdered By: Dr. Black on 09-11-2022 Bilirubin Ql (U) Negative Negative [facility] Blood erythrocytes count (nu mber/volume)Ordered By: Dr. Black on 09-11-2022 RBC (Bld) [#/Vol] 5.71 10*6/uL 4.2-5.4 [facility] Blood hemoglobin measurement (mass/volume)Ordered By: Dr. Black on 09-11-2022 Hemoglobin (Bld) [Mass/Vol] 15.7 g/dL 12.0-15.0 [facility] Blood lymphocytes/100 leukoc ytesOrdered By: Dr. Black on 09-11-2022 Lymphocytes/100 WBC (Bld) 7.6 % 19-41 [facility] Blood monocytes/100 leukocyt esOrdered By: Dr. Black on 09-11-2022 Monocytes/100 WBC (Bld) 4.7 % 0-10 [facility] Blood platelet mean volumeOr dered By: Dr. Black on 09-11-2022 Platelet mean volume (Bld) [Entitic vol] 9.3 fL 6.2-12.0 [facility] Determination of erythrocyte mean corpuscular volume (MCV)Ordered By: Dr. Black on 09-11-2022 MCV (RBC) [Entitic vol] 83.7 fL 81-99 [facility] Hematocrit Auto (Bld) [Volum e fraction]Ordered By: Dr. Black on 09-11-2022 Hematocrit (Bld) [Volume fraction] 47.8 % 37-47 [facility] Ketones Test strip Ql (U)Ord ered By: Dr. Black on 09-11-2022 Ketones Ql (U) Negative Negative [facility] - Chemistry and C hemistry - challengeOrdered By: Dr. Black on 09-11-2022 ALP [Catalytic activity/Vol] 115 U/L 45-117 [facility] ALT [Catalytic activity/Vol] 21 U/L 13-56 [facility] CO2 [Moles/Vol] 31.0 mmol/L 21.0-32.0 [facility] Globulin (S) [Mass/Vol] 4.1 g/dL 2.2-4.2 [facility] Lipase [Catalytic activity/Vol] 172 U/L 73-393 [facility] Urea nitrogen/Creatinine [Mass ratio] 14.1 mg/mg 10-20 [facility] - Hematology and Cell countsOrdered By: Dr. Black on 09-11-2022 Erythrocyte distribution width (RBC) [Entitic vol] 38.4 fL 35.1-43.9 [facility] Erythrocyte distribution width (RBC) [Ratio] 12.8 % 11.6-14.6 [facility] Immature granulocytes/100 WBC (Bld) 0.500 % 0.0-0.9 [facility] Comment on above: IG% - Immature Granu locytes (promyelocytes, myelocytes and metamyelocytes) > 1% indicates that a LEFT SHIFT is Present. MCH (RBC) [Entitic mass] 27.5 pg 27.0-32.0 [facility] Nucleated RBC/100 WBC (Bld) [Ratio] 0 % 0-5 [facility] MCHC Auto (RBC) [Mass/Vol]Or dered By: Dr. Black on 09-11-2022 MCHC (RBC) [Mass/Vol] 32.8 g/dL 32-36 [facility] Mucus LM Ql (Urine sed)Order ed By: Dr. Black on 09-11-2022 Mucus Ql (Urine sed) 0 SEEN /hpf [facility] Nitrite Test strip Ql (U)Ord ered By: Dr. Black on 09-11-2022 Nitrite Ql (U) Negative Negative [facility] No Panel InformationOrdered By: Dr. Black on 09-11-2022 Estimated Creatinine Clearance Calc 91.16 ml/min [facility] Estimated GFR (MDRD) Amer 112 mL/min >60 [facility] Comment on above: GFR Calc Estimated GFR (MDRD) Non-Af Amer 93 mL/min >60 [facility] Comment on above: Non- GFR Calc 27.5 pg 27.0-32.0 [facility] 12.8 % 11.6-14.6 [facility] 38.4 fl 35.1-43.9 [facility] 0.500 % 0.0-0.9 [facility] 0 % 0-5 [facility] 93 mL/min >60 [facility] 112 mL/min >60 [facility] 91.16 ml/min [facility] 14.1 RATIO 10-20 [facility] 4.1 g/dL 2.2-4.2 [facility] 172 U/L 73-393 [facility] 115 U/L 45-117 [facility] 21 U/L 13-56 [facility] 31.0 mmol/L 21.0-32.0 [facility] Platelets bldOrdered By: Dr. Black on 09-11-2022 Platelets (Bld) [#/Vol] 290 10*3/uL 150-450 [facility] Protein Test strip Ql (U)Ord ered By: Dr. Black on 09-11-2022 Protein Ql (U) 100 mg/dl Negative [facility] Serum or plasma albumin xiomara urement (mass/volume)Ordered By: Dr. Black on 09-11-2022 Albumin [Mass/Vol] 3.0 g/dL 3.2-5.0 [facility] Serum or plasma albumin/glob ulin mass ratioOrdered By: Dr. Black on 09-11-2022 Albumin/Globulin [Mass ratio] 0.7 {ratio} 0.9-2.4 [facility] Serum or plasma calcium xiomara urement (mass/volume)Ordered By: Dr. Black on 09-11-2022 Calcium [Mass/Vol] 8.9 mg/dL 8.5-10.1 [facility] Serum or plasma creatinine m easurement (mass/volume)Ordered By: Dr. Black on 09-11-2022 Creatinine [Mass/Vol] 0.71 mg/dL 0.55-1.02 [facility] Comment on above: The validity of the calculated GFR & GFRAA in patients over 70 years has not been determined. Clinical correlation is essential. Serum or plasma urea nitroge n measurement (mass/volume)Ordered By: Dr. Black on 09-11-2022 Urea nitrogen [Mass/Vol] 10 mg/dL 7-18 [facility] Squamous epithelial cells de tection in urine sediment by light microscopyOrdered By: Dr. Black on 09-11-2022 Epithelial cells.squamous LM Ql (Urine sed) 0-5 SEEN /hpf 5-10 [facility] Thin prep Papanicolaou smear with manual screeningOrdered By: Dr. Black on 09-11-2022 Thin prep Papanicolaou smear with manual screening 18 U/L 15-37 [facility] Thin prep Papanicolaou smear with manual screening 3 5-15 [facility] Urine blood detectionOrdered By: Dr. Black on 09-11-2022 RBC Ql (U) 25 /ul Negative [facility] RBC Ql (U) 0 SEEN /hpf 0-5 [facility] Urine clarityOrdered By: Dr. Black on 09-11-2022 Clarity (U) Clear Clear [facility] Urine color determinationOrd ered By: Dr. Black on 09-11-2022 Color (U) Yellow Yellow [facility] Urine glucose detectionOrder ed By: Dr. Black on 09-11-2022 Glucose Ql (U) 1000 mg/dl Normal [facility] Urine leukocyte esterase det ection by dipstickOrdered By: Dr. Black on 09-11-2022 Leukocyte esterase Test strip Ql (U) Negative Negative [facility] Urine pHOrdered By: Dr. Artemio jean on 09-11-2022 pH (U) 7.0 [pH] 5.0 - 8.0 [facility] Urine sediment bacteria coun t by microscopy (number/high power field)Ordered By: Dr. Black on 09-11-2022 Bacteria LM.HPF (Urine sed) [#/Area] 0 /[HPF] None Seen [facility] Urine specific gravity measu rementOrdered By: Dr. Black on 09-11-2022 Specific gravity (U) [Rel density] 1.015 1.002-1.03 0 [facility] Urobilinogen Auto test strip Ql (U)Ordered By: Dr. Black on 09-11-2022 Urobilinogen Ql (U) Normal mg/dl Normal [facility] Absolute lymphocyte countOrd ered By: Dr. Christina on 09-09-2022 Lymphocytes Auto (Unsp spec) [#/Vol] 1.70 10*3/uL 0.83-4.51 [facility] Basophil percentageOrdered B y: Dr. Christina on 09-09-2022 Basophil percentage 0-5 SEEN /hpf 0-5 [facility] Basophil percentage 306 mg/dL 74-106 [facility] Basophil percentage 6.7 g/dL 6.4-8.2 [facility] Basophil percentage 0.70 mg/dL 0.20-1.00 [facility] Basophil percentage 134 mmol/L 136-145 [facility] Basophil percentage 3.5 mmol/L 3.5-5.1 [facility] Basophil percentage 98 mmol/L 98-107 [facility] Basophils (Bld) [#/Vol] 9.0 10*3/uL 4.4-11.0 [facility] Basophils (Bld) [#/Vol] 6.5 10*3/uL 2.0-7.7 [facility] Basophils/100 WBC (Bld) 1.0 % 0-1 [facility] Basophils/100 WBC (Bld) 72.3 % 47-70 [facility] Basophils/100 WBC (Bld) 1.4 % 0-5 [facility] Bilirubin [Mass/Vol] 0.70 mg/dL 0.20-1.00 [facility] [place] Comment on above: For patients on eltr ombopag therapy, use of Dimension [place] TBIL is not recommended. Chloride [Moles/Vol] 98 mmol/L 98-107 [facility] [place] Eosinophils/100 WBC (Bld) 1.4 % 0-5 [facility] Glucose [Mass/Vol] 306 mg/dL 74-106 [facility] Comment on above: Glucose result great er than or equal to 200 mg/dLsuggests DIABETES MELLITUS per A.D.A. criteria. Neutrophils (Bld) [#/Vol] 6.5 10*3/uL 2.0-7.7 [facility] Neutrophils/100 WBC (Bld) 72.3 % 47-70 [facility] Potassium [Moles/Vol] 3.5 mmol/L 3.5-5.1 [facility] Protein [Mass/Vol] 6.7 g/dL 6.4-8.2 [facility] Sodium [Moles/Vol] 134 mmol/L 136-145 [facility] WBC (Bld) [#/Vol] 9.0 10*3/uL 4.4-11.0 [facility] Bilirubin Test strip Ql (U)O rdered By: Dr. Christina on 09-09-2022 Bilirubin Ql (U) Negative Negative [facility] Blood erythrocytes count (nu mber/volume)Ordered By: Dr. Christina on 09-09-2022 RBC (Bld) [#/Vol] 5.26 10*6/uL 4.2-5.4 [facility] Blood hemoglobin measurement (mass/volume)Ordered By: Dr. Christina on 09-09-2022 Hemoglobin (Bld) [Mass/Vol] 14.3 g/dL 12.0-15.0 [facility] Blood lymphocytes/100 leukoc ytesOrdered By: Dr. Christina on 09-09-2022 Lymphocytes/100 WBC (Bld) 19.0 % 19-41 [facility] Blood monocytes/100 leukocyt esOrdered By: Dr. Christina on 09-09-2022 Monocytes/100 WBC (Bld) 6.0 % 0-10 [facility] Blood platelet mean volumeOr dered By: Dr. Christina on 09-09-2022 Platelet mean volume (Bld) [Entitic vol] 9.2 fL 6.2-12.0 [facility] Determination of erythrocyte mean corpuscular volume (MCV)Ordered By: Dr. Christina on 09-09-2022 MCV (RBC) [Entitic vol] 83.1 fL 81-99 [facility] Direct bilirubinOrdered By: Dr. Christina on 09-09-2022 Bilirubin.direct [Mass/Vol] 0.19 mg/dL 0.00-0.30 [facility] Hematocrit Auto (Bld) [Volum e fraction]Ordered By: Dr. Christina on 09-09-2022 Hematocrit (Bld) [Volume fraction] 43.7 % 37-47 [facility] Ketones Test strip Ql (U)Ord ered By: Dr. Christina on 09-09-2022 Ketones Ql (U) Negative Negative [facility] - Chemistry and C hemistry - challengeOrdered By: Dr. Christina on 09-09-2022 ALP [Catalytic activity/Vol] 109 U/L 45-117 [facility] ALT [Catalytic activity/Vol] 18 U/L 13-56 [facility] CO2 [Moles/Vol] 31.0 mmol/L 21.0-32.0 [facility] Globulin (S) [Mass/Vol] 3.9 g/dL 2.2-4.2 [facility] Lipase [Catalytic activity/Vol] 47 U/L 73-393 [facility] Urea nitrogen/Creatinine [Mass ratio] 9.0 mg/mg 10-20 [facility] - Hematology and Cell countsOrdered By: Dr. Christina on 09-09-2022 Erythrocyte distribution width (RBC) [Entitic vol] 38.2 fL 35.1-43.9 [facility] Erythrocyte distribution width (RBC) [Ratio] 12.7 % 11.6-14.6 [facility] Immature granulocytes/100 WBC (Bld) 0.300 % 0.0-0.9 [facility] Comment on above: IG% - Immature Granu locytes (promyelocytes, myelocytes and metamyelocytes) > 1% indicates that a LEFT SHIFT is Present. MCH (RBC) [Entitic mass] 27.2 pg 27.0-32.0 [facility] Nucleated RBC/100 WBC (Bld) [Ratio] 0 % 0-5 [facility] MCHC Auto (RBC) [Mass/Vol]Or dered By: Dr. Christina on 09-09-2022 MCHC (RBC) [Mass/Vol] 32.7 g/dL 32-36 [facility] Mucus LM Ql (Urine sed)Order ed By: Dr. Christina on 09-09-2022 Mucus Ql (Urine sed) 0 SEEN /hpf [facility] Nitrite Test strip Ql (U)Ord ered By: Dr. Christina on 09-09-2022 Nitrite Ql (U) Negative Negative [facility] No Panel InformationOrdered By: Dr. Christina on 09-09-2022 Estimated Creatinine Clearance Calc 96.60 ml/min [facility] Estimated GFR (MDRD) Amer 120 mL/min >60 [facility] Comment on above: GFR Calc Estimated GFR (MDRD) Non-Af Amer 99 mL/min >60 [facility] Comment on above: Non- GFR Calc Troponin I High Sensitivity 14 pg/mL 3.0-54.0 [facility] Comment on above: Please Note: New Junie t Units and Gender Specific Reference Ranges. For more information see Policy Stat Procedure [place] High Sensitivity Troponin (TNIH) and attachments. 27.2 pg 27.0-32.0 [facility] 12.7 % 11.6-14.6 [facility] 38.2 fl 35.1-43.9 [facility] 0.300 % 0.0-0.9 [facility] 0 % 0-5 [facility] 99 mL/min >60 [facility] 120 mL/min >60 [facility] 96.60 ml/min [facility] 9.0 RATIO 10-20 [facility] 3.9 g/dL 2.2-4.2 [facility] 47 U/L 73-393 [facility] 14 pg/mL 3.0-54.0 [facility] 109 U/L 45-117 [facility] 18 U/L 13-56 [facility] 31.0 mmol/L 21.0-32.0 [facility] Platelets bldOrdered By: Dr. Christina on 09-09-2022 Platelets (Bld) [#/Vol] 290 10*3/uL 150-450 [facility] Protein Test strip Ql (U)Ord ered By: Dr. Christina on 09-09-2022 Protein Ql (U) 100 mg/dl Negative [facility] Serum or plasma albumin xiomara urement (mass/volume)Ordered By: Dr. Christina on 09-09-2022 Albumin [Mass/Vol] 2.8 g/dL 3.2-5.0 [facility] Serum or plasma calcium xiomara urement (mass/volume)Ordered By: Dr. Christina on 09-09-2022 Calcium [Mass/Vol] 8.8 mg/dL 8.5-10.1 [facility] Serum or plasma creatinine m easurement (mass/volume)Ordered By: Dr. Christina on 09-09-2022 Creatinine [Mass/Vol] 0.67 mg/dL 0.55-1.02 [facility] Comment on above: The validity of the calculated GFR & GFRAA in patients over 70 years has not been determined. Clinical correlation is essential. Serum or plasma urea nitroge n measurement (mass/volume)Ordered By: Dr. Christina on 09-09-2022 Urea nitrogen [Mass/Vol] 6 mg/dL 7-18 [facility] Squamous epithelial cells de tection in urine sediment by light microscopyOrdered By: Dr. Christina on 09-09-2022 Epithelial cells.squamous LM Ql (Urine sed) 5-10 SEEN /hpf 5-10 [facility] Thin prep Papanicolaou smear with manual screeningOrdered By: Dr. Christina on 09-09-2022 Thin prep Papanicolaou smear with manual screening 18 U/L 15-37 [facility] Thin prep Papanicolaou smear with manual screening 5 5-15 [facility] Urine blood detectionOrdered By: Dr. Christina on 09-09-2022 RBC Ql (U) 25 /ul Negative [facility] RBC Ql (U) 0-5 SEEN /hpf 0-5 [facility] Urine clarityOrdered By: Dr. Christina on 09-09-2022 Clarity (U) Sl. Cloudy Clear [facility] Urine color determinationOrd ered By: Dr. Christina on 09-09-2022 Color (U) Yellow Yellow [facility] Urine glucose detectionOrder ed By: Dr. Christina on 09-09-2022 Glucose Ql (U) 1000 mg/dl Normal [facility] Urine leukocyte esterase det ection by dipstickOrdered By: Dr. Christina on 09-09-2022 Leukocyte esterase Test strip Ql (U) 25 /ul Negative [facility] Urine pHOrdered By: Dr. Davis maxwell on 09-09-2022 pH (U) 8.0 [pH] 5.0 - 8.0 [facility] Urine sediment bacteria coun t by microscopy (number/high power field)Ordered By: Dr. Christina on 09-09-2022 Bacteria LM.HPF (Urine sed) [#/Area] 0 /[HPF] None Seen [facility] Urine specific gravity measu rementOrdered By: Dr. Christina on 09-09-2022 Specific gravity (U) [Rel density] 1.015 1.002-1.03 0 [facility] Urobilinogen Auto test strip Ql (U)Ordered By: Dr. Christina on 09-09-2022 Urobilinogen Ql (U) Normal mg/dl Normal [facility] Absolute lymphocyte countOrd ered By: Dr. Hanley on 09-05-2022 Lymphocytes Auto (Unsp spec) [#/Vol] 1.04 10*3/uL 0.83-4.51 [facility] Basophil percentageOrdered B y: Dr. Hanley on 09-05-2022 Basophil percentage 330 mg/dL 74-106 [facility] Basophil percentage 134 mmol/L 136-145 [facility] Basophil percentage 3.7 mmol/L 3.5-5.1 [facility] Basophil percentage 100 mmol/L 98-107 [facility] Basophils (Bld) [#/Vol] 8.5 10*3/uL 4.4-11.0 [facility] Basophils (Bld) [#/Vol] 6.8 10*3/uL 2.0-7.7 [facility] Basophils/100 WBC (Bld) 0.8 % 0-1 [facility] Basophils/100 WBC (Bld) 80.1 % 47-70 [facility] Chloride [Moles/Vol] 100 mmol/L 98-107 [facility] [place] Eosinophils/100 WBC (Bld) 0.8 % 0-5 [facility] Glucose [Mass/Vol] 330 mg/dL 74-106 [facility] Comment on above: Glucose result great er than or equal to 200 mg/dLsuggests DIABETES MELLITUS per A.D.A. criteria. Neutrophils (Bld) [#/Vol] 6.8 10*3/uL 2.0-7.7 [facility] Neutrophils/100 WBC (Bld) 80.1 % 47-70 [facility] Potassium [Moles/Vol] 3.7 mmol/L 3.5-5.1 [facility] Sodium [Moles/Vol] 134 mmol/L 136-145 [facility] WBC (Bld) [#/Vol] 8.5 10*3/uL 4.4-11.0 [facility] Blood erythrocytes count (nu mber/volume)Ordered By: Dr. Hanley on 09-05-2022 RBC (Bld) [#/Vol] 5.21 10*6/uL 4.2-5.4 [facility] Blood hemoglobin measurement (mass/volume)Ordered By: Dr. Hanley on 09-05-2022 Hemoglobin (Bld) [Mass/Vol] 14.3 g/dL 12.0-15.0 [facility] Blood lymphocytes/100 leukoc ytesOrdered By: Dr. Hanley on 09-05-2022 Lymphocytes/100 WBC (Bld) 12.2 % 19-41 [facility] Blood monocytes/100 leukocyt esOrdered By: Dr. Hanley on 09-05-2022 Monocytes/100 WBC (Bld) 5.7 % 0-10 [facility] Blood platelet mean volumeOr dered By: Dr. Hanley on 09-05-2022 Platelet mean volume (Bld) [Entitic vol] 9.6 fL 6.2-12.0 [facility] Determination of erythrocyte mean corpuscular volume (MCV)Ordered By: Dr. Hanley on 09-05-2022 MCV (RBC) [Entitic vol] 84.3 fL 81-99 [facility] Hematocrit Auto (Bld) [Volum e fraction]Ordered By: Dr. Hanley on 09-05-2022 Hematocrit (Bld) [Volume fraction] 43.9 % 37-47 [facility] - Chemistry and C hemistry - challengeOrdered By: Dr. Hanley on 09-05-2022 CO2 [Moles/Vol] 30.0 mmol/L 21.0-32.0 [facility] Urea nitrogen/Creatinine [Mass ratio] 5.7 mg/mg 10-20 [facility] - Hematology and Cell countsOrdered By: Dr. Hanley on 09-05-2022 Erythrocyte distribution width (RBC) [Entitic vol] 38.6 fL 35.1-43.9 [facility] Erythrocyte distribution width (RBC) [Ratio] 12.6 % 11.6-14.6 [facility] Immature granulocytes/100 WBC (Bld) 0.400 % 0.0-0.9 [facility] Comment on above: IG% - Immature Granu locytes (promyelocytes, myelocytes and metamyelocytes) > 1% indicates that a LEFT SHIFT is Present. MCH (RBC) [Entitic mass] 27.4 pg 27.0-32.0 [facility] Nucleated RBC/100 WBC (Bld) [Ratio] 0 % 0-5 [facility] Laboratory - Microbiology an d Antimicrobial susceptibilityOrdered By: Dr. Rawls on 09-05-2022 Bacteria identified Cx Nom (Bld) No growth in 5 days. [facility] MCHC Auto (RBC) [Mass/Vol]Or dered By: Dr. Hanley on 09-05-2022 MCHC (RBC) [Mass/Vol] 32.6 g/dL 32-36 [facility] No Panel InformationOrdered By: Dr. Hanley on 09-05-2022 Estimated Creatinine Clearance Calc 92.46 ml/min [facility] Estimated GFR (MDRD) Amer 114 mL/min >60 [facility] Comment on above: GFR Calc Estimated GFR (MDRD) Non-Af Amer 94 mL/min >60 [facility] Comment on above: Non- GFR Calc 27.4 pg 27.0-32.0 [facility] 12.6 % 11.6-14.6 [facility] 38.6 fl 35.1-43.9 [facility] 0.400 % 0.0-0.9 [facility] 0 % 0-5 [facility] 94 mL/min >60 [facility] 114 mL/min >60 [facility] 92.46 ml/min [facility] 5.7 RATIO 10-20 [facility] 30.0 mmol/L 21.0-32.0 [facility] No Panel InformationOrdered By: Dr. Rawls on 09-05-2022 No growth in 5 days. [facility] Platelets bldOrdered By: Dr. Hanley on 09-05-2022 Platelets (Bld) [#/Vol] 234 10*3/uL 150-450 [facility] Serum or plasma calcium xiomara urement (mass/volume)Ordered By: Dr. Hanley on 09-05-2022 Calcium [Mass/Vol] 9.1 mg/dL 8.5-10.1 [facility] Serum or plasma creatinine m easurement (mass/volume)Ordered By: Dr. Hanley on 09-05-2022 Creatinine [Mass/Vol] 0.70 mg/dL 0.55-1.02 [facility] Comment on above: The validity of the calculated GFR & GFRAA in patients over 70 years has not been determined. Clinical correlation is essential. Serum or plasma urea nitroge n measurement (mass/volume)Ordered By: Dr. Hanley on 09-05-2022 Urea nitrogen [Mass/Vol] 4 mg/dL 7-18 [facility] Thin prep Papanicolaou smear with manual screeningOrdered By: Dr. Hanley on 09-05-2022 Thin prep Papanicolaou smear with manual screening 4 5-15 [facility] Glucose Glucometer (BldC) [M ass/Vol]Ordered By: Dr. Forde on 09-02-2022 Glucose [Mass/Vol] 211 mg/dL 74-106 [facility] Comment on above: MANAGEMENT OF PATIEN T CARE PER NURSING PROTOCOL Absolute lymphocyte countOrd ered By: Dr. Forde on 08-31-2022 Lymphocytes Auto (Unsp spec) [#/Vol] 1.81 10*3/uL 0.83-4.51 [facility] Bacteria identified Cx Nom ( U)Ordered By: Dr. Rawls on 08-31-2022 Culture, urine Positive [facility] Basophil percentageOrdered B y: Dr. Forde on 08-31-2022 Basophil percentage 221 mg/dL 74-106 [facility] Basophil percentage 137 mmol/L 136-145 [facility] Basophil percentage 3.7 mmol/L 3.5-5.1 [facility] Basophil percentage 108 mmol/L 98-107 [facility] Basophils (Bld) [#/Vol] 6.8 10*3/uL 4.4-11.0 [facility] Basophils (Bld) [#/Vol] 4.4 10*3/uL 2.0-7.7 [facility] Basophils/100 WBC (Bld) 0.7 % 0-1 [facility] Basophils/100 WBC (Bld) 64.6 % 47-70 [facility] Basophils/100 WBC (Bld) 1.3 % 0-5 [facility] Chloride [Moles/Vol] 108 mmol/L 98-107 [facility] Eosinophils/100 WBC (Bld) 1.3 % 0-5 [facility] Glucose [Mass/Vol] 221 mg/dL 74-106 [facility] Comment on above: Glucose result great er than or equal to 200 mg/dLsuggests DIABETES MELLITUS per A.D.A. criteria. Neutrophils (Bld) [#/Vol] 4.4 10*3/uL 2.0-7.7 [facility] Neutrophils/100 WBC (Bld) 64.6 % 47-70 [facility] Potassium [Moles/Vol] 3.7 mmol/L 3.5-5.1 [facility] Sodium [Moles/Vol] 137 mmol/L 136-145 [facility] WBC (Bld) [#/Vol] 6.8 10*3/uL 4.4-11.0 [facility] Blood erythrocytes count (nu mber/volume)Ordered By: Dr. Forde on 08-31-2022 RBC (Bld) [#/Vol] 4.86 10*6/uL 4.2-5.4 [facility] Blood hemoglobin measurement (mass/volume)Ordered By: Dr. Forde on 08-31-2022 Hemoglobin (Bld) [Mass/Vol] 13.6 g/dL 12.0-15.0 [facility] Blood lymphocytes/100 leukoc ytesOrdered By: Dr. Forde on 08-31-2022 Lymphocytes/100 WBC (Bld) 26.6 % 19-41 [facility] Blood monocytes/100 leukocyt esOrdered By: Dr. Forde on 08-31-2022 Monocytes/100 WBC (Bld) 6.5 % 0-10 [facility] Blood platelet mean volumeOr dered By: Dr. Forde on 08-31-2022 Platelet mean volume (Bld) [Entitic vol] 9.1 fL 6.2-12.0 [facility] Culture, urineOrdered By: Dr Carmelo Rawls on 08-31-2022 Bacteria identified Cx Nom (U) Positive [facility] Determination of erythrocyte mean corpuscular volume (MCV)Ordered By: Dr. Forde on 08-31-2022 MCV (RBC) [Entitic vol] 85.4 fL 81-99 [facility] Hematocrit Auto (Bld) [Volum e fraction]Ordered By: Dr. Forde on 08-31-2022 Hematocrit (Bld) [Volume fraction] 41.5 % 37-47 [facility] Laboratory - Chemistry and C hemistry - challengeOrdered By: Dr. Forde on 08-31-2022 CO2 [Moles/Vol] 26.0 mmol/L 21.0-32.0 [facility] Urea nitrogen/Creatinine [Mass ratio] 14.6 mg/mg 10-20 [facility] - Hematology and Cell countsOrdered By: Dr. Forde on 08-31-2022 Erythrocyte distribution width (RBC) [Entitic vol] 39.9 fL 35.1-43.9 [facility] Erythrocyte distribution width (RBC) [Ratio] 13.0 % 11.6-14.6 [facility] Immature granulocytes/100 WBC (Bld) 0.300 % 0.0-0.9 [facility] Comment on above: IG% - Immature Granu locytes (promyelocytes, myelocytes and metamyelocytes) > 1% indicates that a LEFT SHIFT is Present. MCH (RBC) [Entitic mass] 28.0 pg 27.0-32.0 [facility] Nucleated RBC/100 WBC (Bld) [Ratio] 0 % 0-5 [facility] MCHC Auto (RBC) [Mass/Vol]Or dered By: Dr. Forde on 08-31-2022 MCHC (RBC) [Mass/Vol] 32.8 g/dL 32-36 [facility] No Panel InformationOrdered By: Dr. Forde on 08-31-2022 Estimated Creatinine Clearance Calc 104.39 ml/min [facility] Estimated GFR (MDRD) Amer 131 mL/min >60 [facility] Comment on above: GFR Calc Estimated GFR (MDRD) Non-Af Amer 109 mL/min >60 [facility] Comment on above: Non- GFR Calc 28.0 pg 27.0-32.0 [facility] 13.0 % 11.6-14.6 [facility] 39.9 fl 35.1-43.9 [facility] 0.300 % 0.0-0.9 [facility] 0 % 0-5 [facility] 109 mL/min >60 [facility] 131 mL/min >60 [facility] 104.39 ml/min [facility] 14.6 RATIO 10-20 [facility] 26.0 mmol/L 21.0-32.0 [facility] Platelets bldOrdered By: Dr. Forde on 08-31-2022 Platelets (Bld) [#/Vol] 227 10*3/uL 150-450 [facility] Serum or plasma calcium xiomara urement (mass/volume)Ordered By: Dr. Forde on 08-31-2022 Calcium [Mass/Vol] 8.8 mg/dL 8.5-10.1 [facility] Serum or plasma creatinine m easurement (mass/volume)Ordered By: Dr. Forde on 08-31-2022 Creatinine [Mass/Vol] 0.62 mg/dL 0.55-1.02 [facility] Comment on above: The validity of the calculated GFR & GFRAA in patients over 70 years has not been determined. Clinical correlation is essential. Serum or plasma urea nitroge n measurement (mass/volume)Ordered By: Dr. Forde on 08-31-2022 Urea nitrogen [Mass/Vol] 9 mg/dL 7-18 [facility] Thin prep Papanicolaou smear with manual screeningOrdered By: Dr. Forde on 08-31-2022 Thin prep Papanicolaou smear with manual screening 3 5-15 [facility] Absolute lymphocyte countOrd ered By: Dr. Rawls on 08-30-2022 Lymphocytes Auto (Unsp spec) [#/Vol] 1.33 10*3/uL 0.83-4.51 [facility] Basophil percentageOrdered B y: Dr. Rawls on 08-30-2022 Basophil percentage 1.1 mmol/L 0.4-2.0 [facility] Lactate [Moles/Vol] 1.1 mmol/L 0.4-2.0 [facility] Basophil percentage 7.1 g/dL 6.4-8.2 [facility] Basophil percentage 0.70 mg/dL 0.20-1.00 [facility] Basophils/100 WBC (Bld) 0.6 % 0-1 [facility] Bilirubin [Mass/Vol] 0.70 mg/dL 0.20-1.00 [facility] Comment on above: For patients on eltr ombopag therapy, use of Dimension [place] TBIL is not recommended. Chloride [Moles/Vol] 96 mmol/L 98-107 [facility] Eosinophils/100 WBC (Bld) 0.5 % 0-5 [facility] Glucose [Mass/Vol] 400 mg/dL 74-106 [facility] Comment on above: Glucose result great er than or equal to 200 mg/dLsuggests DIABETES MELLITUS per A.D.A. criteria. Lactate [Moles/Vol] 2.2 mmol/L 0.4-2.0 [facility] Comment on above: Critical Result(s) C alled at: 15:31:02 08/30/2022 by: Eileen Mauricio [facility] Results read back by same. Neutrophils (Bld) [#/Vol] 6.7 10*3/uL 2.0-7.7 [facility] Neutrophils/100 WBC (Bld) 77.4 % 47-70 [facility] Potassium [Moles/Vol] 4.0 mmol/L 3.5-5.1 [facility] Protein [Mass/Vol] 7.1 g/dL 6.4-8.2 [facility] Sodium [Moles/Vol] 132 mmol/L 136-145 [facility] WBC (Bld) [#/Vol] 8.6 10*3/uL 4.4-11.0 [facility] Blood erythrocytes count (nu mber/volume)Ordered By: Dr. Rawls on 08-30-2022 RBC (Bld) [#/Vol] 5.43 10*6/uL 4.2-5.4 [facility] Blood hemoglobin measurement (mass/volume)Ordered By: Dr. Rawls on 08-30-2022 Hemoglobin (Bld) [Mass/Vol] 15.0 g/dL 12.0-15.0 [facility] Blood lymphocytes/100 leukoc ytesOrdered By: Dr. Rawls on 08-30-2022 Lymphocytes/100 WBC (Bld) 15.4 % 19-41 [facility] Blood monocytes/100 leukocyt esOrdered By: Dr. Rawls on 08-30-2022 Monocytes/100 WBC (Bld) 5.9 % 0-10 [facility] Blood platelet mean volumeOr dered By: Dr. Rawls on 08-30-2022 Platelet mean volume (Bld) [Entitic vol] 9.1 fL 6.2-12.0 [facility] Determination of erythrocyte mean corpuscular volume (MCV)Ordered By: Dr. Rawls on 08-30-2022 MCV (RBC) [Entitic vol] 83.6 fL 81-99 [facility] Hematocrit Auto (Bld) [Volum e fraction]Ordered By: Dr. Rawls on 08-30-2022 Hematocrit (Bld) [Volume fraction] 45.4 % 37-47 [facility] INR in Blood by Coagulation assayOrdered By: Dr. Rawls on 08-30-2022 INR Coag (Bld) [Relative time] 1.0 {INR} [facility] Laboratory - Chemistry and C hemistry - challengeOrdered By: Dr. Rawls on 08-30-2022 ALP [Catalytic activity/Vol] 133 U/L 45-117 [facility] ALT [Catalytic activity/Vol] 17 U/L 13-56 [facility] CO2 [Moles/Vol] 31.0 mmol/L 21.0-32.0 [facility] Globulin (S) [Mass/Vol] 4.1 g/dL 2.2-4.2 [facility] Urea nitrogen/Creatinine [Mass ratio] 10.1 mg/mg 10-20 [facility] Laboratory - CoagulationOrde red By: Dr. Rawls on 08-30-2022 aPTT Coag (Bld) [Time] 26.7 s 24.1-36.2 [facility] PT Coag (PPP) [Time] 12.6 s 11.7-14.9 [facility] Laboratory - Hematology and Cell countsOrdered By: Dr. Rawls on 08-30-2022 Erythrocyte distribution width (RBC) [Entitic vol] 39.0 fL 35.1-43.9 [facility] Erythrocyte distribution width (RBC) [Ratio] 12.9 % 11.6-14.6 [facility] Immature granulocytes/100 WBC (Bld) 0.200 % 0.0-0.9 [facility] Comment on above: IG% - Immature Granu locytes (promyelocytes, myelocytes and metamyelocytes) > 1% indicates that a LEFT SHIFT is Present. MCH (RBC) [Entitic mass] 27.6 pg 27.0-32.0 [facility] Nucleated RBC/100 WBC (Bld) [Ratio] 0 % 0-5 [facility] MCHC Auto (RBC) [Mass/Vol]Or dered By: Dr. Rawls on 08-30-2022 MCHC (RBC) [Mass/Vol] 33.0 g/dL 32-36 [facility] No Panel InformationOrdered By: Dr. Rawls on 08-30-2022 Estimated Creatinine Clearance Calc 65.38 ml/min [facility] Estimated GFR (MDRD) Amer 76 mL/min >60 [facility] Comment on above: GFR Calc Estimated GFR (MDRD) Non-Af Amer 63 mL/min >60 [facility] Comment on above: Non- GFR Calc 12.6 SECONDS 11.7-14.9 [facility] 26.7 Seconds 24.1-36.2 [facility] 4.1 g/dL 2.2-4.2 [facility] 133 U/L 45-117 [facility] 17 U/L 13-56 [facility] Platelets bldOrdered By: Dr. Rawls on 08-30-2022 Platelets (Bld) [#/Vol] 266 10*3/uL 150-450 [facility] Serum or plasma albumin xiomara urement (mass/volume)Ordered By: Dr. Rawls on 08-30-2022 Albumin [Mass/Vol] 3.0 g/dL 3.2-5.0 [facility] Serum or plasma albumin/glob ulin mass ratioOrdered By: Dr. Rawls on 08-30-2022 Albumin/Globulin [Mass ratio] 0.7 {ratio} 0.9-2.4 [facility] Serum or plasma calcium xiomara urement (mass/volume)Ordered By: Dr. Rawls on 08-30-2022 Calcium [Mass/Vol] 9.1 mg/dL 8.5-10.1 [facility] Serum or plasma creatinine m easurement (mass/volume)Ordered By: Dr. Rawls on 08-30-2022 Creatinine [Mass/Vol] 0.99 mg/dL 0.55-1.02 [facility] Comment on above: The validity of the calculated GFR & GFRAA in patients over 70 years has not been determined. Clinical correlation is essential. Serum or plasma urea nitroge n measurement (mass/volume)Ordered By: Dr. Rawls on 08-30-2022 Urea nitrogen [Mass/Vol] 10 mg/dL 7-18 [facility] Thin prep Papanicolaou smear with manual screeningOrdered By: Dr. Rawls on 08-30-2022 Thin prep Papanicolaou smear with manual screening 15 U/L 15-37 [facility] Thin prep Papanicolaou smear with manual screening 5 5-15 [facility] Whole blood hemoglobin A1c/t otal hemoglobin ratio (mass fraction)Ordered By: Dr. Forde on 08-30-2022 HbA1c (Bld) [Mass fraction] 11.5 % 3.8-5.6 [facility] Comment on above: Normal < 5.7 % Predi abetic 5.7 - 6.4 % Diabetic >or= 6.5 % Please note range changes. Absolute lymphocyte countOrd ered By: Dr. Black on 08-14-2022 Lymphocytes Auto (Unsp spec) [#/Vol] 1.35 10*3/uL 0.83-4.51 [facility] Basophil percentageOrdered B y: Dr. Black on 08-14-2022 Basophil percentage 331 mg/dL 74-106 [facility] Basophil percentage 134 mmol/L 136-145 [facility] Basophil percentage 3.7 mmol/L 3.5-5.1 [facility] Basophil percentage 101 mmol/L 98-107 [facility] Basophils (Bld) [#/Vol] 9.7 10*3/uL 4.4-11.0 [facility] Basophils (Bld) [#/Vol] 7.6 10*3/uL 2.0-7.7 [facility] Basophils/100 WBC (Bld) 0.6 % 0-1 [facility] Basophils/100 WBC (Bld) 78.3 % 47-70 [facility] Basophils/100 WBC (Bld) 0.8 % 0-5 [facility] Chloride [Moles/Vol] 101 mmol/L 98-107 [facility] Eosinophils/100 WBC (Bld) 0.8 % 0-5 [facility] Glucose [Mass/Vol] 331 mg/dL 74-106 [facility] Comment on above: Glucose result great er than or equal to 200 mg/dLsuggests DIABETES MELLITUS per A.D.A. criteria. Neutrophils (Bld) [#/Vol] 7.6 10*3/uL 2.0-7.7 [facility] Neutrophils/100 WBC (Bld) 78.3 % 47-70 [facility] Potassium [Moles/Vol] 3.7 mmol/L 3.5-5.1 [facility] Comment on above: Slight Hemolysis, Re sult may be falsely increased. Sodium [Moles/Vol] 134 mmol/L 136-145 [facility] WBC (Bld) [#/Vol] 9.7 10*3/uL 4.4-11.0 [facility] Blood erythrocytes count (nu mber/volume)Ordered By: Dr. Black on 08-14-2022 RBC (Bld) [#/Vol] 5.16 10*6/uL 4.2-5.4 [facility] Blood hemoglobin measurement (mass/volume)Ordered By: Dr. Black on 08-14-2022 Hemoglobin (Bld) [Mass/Vol] 14.6 g/dL 12.0-15.0 [facility] Blood lymphocytes/100 leukoc ytesOrdered By: Dr. Black on 08-14-2022 Lymphocytes/100 WBC (Bld) 13.9 % 19-41 [facility] Blood monocytes/100 leukocyt esOrdered By: Dr. Black on 08-14-2022 Monocytes/100 WBC (Bld) 5.8 % 0-10 [facility] Blood platelet mean volumeOr dered By: Dr. Black on 08-14-2022 Platelet mean volume (Bld) [Entitic vol] 9.8 fL 6.2-12.0 [facility] Comment on above: FIBRIN NOTED Determination of erythrocyte mean corpuscular volume (MCV)Ordered By: Dr. Black on 08-14-2022 MCV (RBC) [Entitic vol] 83.5 fL 81-99 [facility] Hematocrit Auto (Bld) [Volum e fraction]Ordered By: Dr. Black on 08-14-2022 Hematocrit (Bld) [Volume fraction] 43.1 % 37-47 [facility] - Chemistry and C hemistry - challengeOrdered By: Dr. Black on 08-14-2022 CO2 [Moles/Vol] 27.0 mmol/L 21.0-32.0 [facility] Urea nitrogen/Creatinine [Mass ratio] 8.6 mg/mg 10-20 [facility] - Hematology and Cell countsOrdered By: Dr. Black on 08-14-2022 Erythrocyte distribution width (RBC) [Entitic vol] 37.5 fL 35.1-43.9 [facility] Erythrocyte distribution width (RBC) [Ratio] 12.3 % 11.6-14.6 [facility] Immature granulocytes/100 WBC (Bld) 0.600 % 0.0-0.9 [facility] Comment on above: IG% - Immature Granu locytes (promyelocytes, myelocytes and metamyelocytes) > 1% indicates that a LEFT SHIFT is Present. MCH (RBC) [Entitic mass] 28.3 pg 27.0-32.0 [facility] Nucleated RBC/100 WBC (Bld) [Ratio] 0.2 % 0-5 [facility] MCHC Auto (RBC) [Mass/Vol]Or dered By: Dr. Black on 08-14-2022 MCHC (RBC) [Mass/Vol] 33.9 g/dL 32-36 [facility] No Panel InformationOrdered By: Dr. Black on 08-14-2022 Estimated Creatinine Clearance Calc 62.33 ml/min [facility] Estimated GFR (MDRD) Amer 71 mL/min >60 [facility] Comment on above: GFR Calc Estimated GFR (MDRD) Non-Af Amer 59 mL/min >60 [facility] Comment on above: Non- GFR Calc 28.3 pg 27.0-32.0 [facility] 12.3 % 11.6-14.6 [facility] 37.5 fl 35.1-43.9 [facility] 0.600 % 0.0-0.9 [facility] 0.2 % 0-5 [facility] 59 mL/min >60 [facility] 71 mL/min >60 [facility] 62.33 ml/min [facility] 8.6 RATIO 10-20 [facility] 27.0 mmol/L 21.0-32.0 [facility] Platelets bldOrdered By: Dr. Black on 08-14-2022 Platelets (Bld) [#/Vol] 220 10*3/uL 150-450 [facility] Serum or plasma calcium xiomara urement (mass/volume)Ordered By: Dr. Black on 08-14-2022 Calcium [Mass/Vol] 8.9 mg/dL 8.5-10.1 [facility] Serum or plasma creatinine m easurement (mass/volume)Ordered By: Dr. Black on 08-14-2022 Creatinine [Mass/Vol] 1.05 mg/dL 0.55-1.02 [facility] Comment on above: The validity of the calculated GFR & GFRAA in patients over 70 years has not been determined. Clinical correlation is essential. Serum or plasma urea nitroge n measurement (mass/volume)Ordered By: Dr. Black on 08-14-2022 Urea nitrogen [Mass/Vol] 9 mg/dL 7-18 [facility] Thin prep Papanicolaou smear with manual screeningOrdered By: Dr. Black on 08-14-2022 Thin prep Papanicolaou smear with manual screening 6 5-15 [facility] Beta hCG serum qualOrdered B y: Dr. Ng on 08-10-2022 Beta HCG ( test) Ql Negative [facility] Absolute lymphocyte countOrd ered By: Darlyn Waleska on 08-06-2022 Lymphocytes Auto (Unsp spec) [#/Vol] 1.46 10*3/uL 0.83-4.51 [facility] Basophil percentageOrdered B y: Darlyn Waleska on 08-06-2022 Basophil percentage 290 mg/dL 74-106 [facility] Basophil percentage 136 mmol/L 136-145 [facility] Basophil percentage 3.5 mmol/L 3.5-5.1 [facility] Basophil percentage 101 mmol/L 98-107 [facility] Basophils (Bld) [#/Vol] 8.7 10*3/uL 4.4-11.0 [facility] Basophils (Bld) [#/Vol] 6.5 10*3/uL 2.0-7.7 [facility] Basophils/100 WBC (Bld) 0.8 % 0-1 [facility] Basophils/100 WBC (Bld) 74.5 % 47-70 [facility] Basophils/100 WBC (Bld) 0.7 % 0-5 [facility] Chloride [Moles/Vol] 101 mmol/L 98-107 [facility] Eosinophils/100 WBC (Bld) 0.7 % 0-5 [facility] Glucose [Mass/Vol] 290 mg/dL 74-106 [facility] Comment on above: Glucose result great er than or equal to 200 mg/dLsuggests DIABETES MELLITUS per A.D.A. criteria. Neutrophils (Bld) [#/Vol] 6.5 10*3/uL 2.0-7.7 [facility] Neutrophils/100 WBC (Bld) 74.5 % 47-70 [facility] Potassium [Moles/Vol] 3.5 mmol/L 3.5-5.1 [facility] Sodium [Moles/Vol] 136 mmol/L 136-145 [facility] WBC (Bld) [#/Vol] 8.7 10*3/uL 4.4-11.0 [facility] Blood erythrocytes count (nu mber/volume)Ordered By: Darlyn Galeano on 08-06-2022 RBC (Bld) [#/Vol] 5.62 10*6/uL 4.2-5.4 [facility] Blood hemoglobin measurement (mass/volume)Ordered By: Darlyn Galeano on 08-06-2022 Hemoglobin (Bld) [Mass/Vol] 15.7 g/dL 12.0-15.0 [facility] Blood lymphocytes/100 leukoc ytesOrdered By: Darlyn Galeano on 08-06-2022 Lymphocytes/100 WBC (Bld) 16.8 % 19-41 [facility] Blood monocytes/100 leukocyt esOrdered By: Darlyn Galeano on 08-06-2022 Monocytes/100 WBC (Bld) 6.9 % 0-10 [facility] Blood platelet mean volumeOr dered By: Darlyn Galeano on 08-06-2022 Platelet mean volume (Bld) [Entitic vol] 9.4 fL 6.2-12.0 [facility] Determination of erythrocyte mean corpuscular volume (MCV)Ordered By: Darlyn Galeano on 08-06-2022 MCV (RBC) [Entitic vol] 85.6 fL 81-99 [facility] Hematocrit Auto (Bld) [Volum e fraction]Ordered By: Darlyn Galeano on 08-06-2022 Hematocrit (Bld) [Volume fraction] 48.1 % 37-47 [facility] - Chemistry and C hemistry - challengeOrdered By: Darlyn Galeano on 08-06-2022 CO2 [Moles/Vol] 29.0 mmol/L 21.0-32.0 [facility] Urea nitrogen/Creatinine [Mass ratio] 10.4 mg/mg 10-20 [facility] - Hematology and Cell countsOrdered By: Darlyn Galeano on 08-06-2022 Erythrocyte distribution width (RBC) [Entitic vol] 38.5 fL 35.1-43.9 [facility] Erythrocyte distribution width (RBC) [Ratio] 12.2 % 11.6-14.6 [facility] Immature granulocytes/100 WBC (Bld) 0.300 % 0.0-0.9 [facility] Comment on above: IG% - Immature Granu locytes (promyelocytes, myelocytes and metamyelocytes) > 1% indicates that a LEFT SHIFT is Present. MCH (RBC) [Entitic mass] 27.9 pg 27.0-32.0 [facility] Nucleated RBC/100 WBC (Bld) [Ratio] 0 % 0-5 [facility] ([facility]) [Mass/Vol]Or dered By: Darlyn Galeano on 08-06-2022 MCHC (RBC) [Mass/Vol] 32.6 g/dL 32-36 [facility] No Panel InformationOrdered By: Darlyn Galeano on 08-06-2022 Estimated Creatinine Clearance Calc 85.00 ml/min [facility] Estimated GFR (MDRD) Amer 101 mL/min >60 [facility] Comment on above: GFR Calc Estimated GFR (MDRD) Non-Af Amer 84 mL/min >60 [facility] Comment on above: Non- GFR Calc 27.9 pg 27.0-32.0 [facility] 12.2 % 11.6-14.6 [facility] 38.5 fl 35.1-43.9 [facility] 0.300 % 0.0-0.9 [facility] 0 % 0-5 [facility] 84 mL/min >60 [facility] 101 mL/min >60 [facility] 85.00 ml/min [facility] 10.4 RATIO 10-20 [facility] 29.0 mmol/L 21.0-32.0 [facility] Platelets bldOrdered By: Renee Galeano on 08-06-2022 Platelets (Bld) [#/Vol] 269 10*3/uL 150-450 [facility] Serum or plasma calcium xiomara urement (mass/volume)Ordered By: Darlyn Galeano on 08-06-2022 Calcium [Mass/Vol] 9.0 mg/dL 8.5-10.1 [facility] Serum or plasma creatinine m easurement (mass/volume)Ordered By: Darlyn Galeano on 08-06-2022 Creatinine [Mass/Vol] 0.77 mg/dL 0.55-1.02 [facility] Comment on above: The validity of the calculated GFR & GFRAA in patients over 70 years has not been determined. Clinical correlation is essential. Serum or plasma urea nitroge n measurement (mass/volume)Ordered By: Darlyn Galeano on 08-06-2022 Urea nitrogen [Mass/Vol] 8 mg/dL 7-18 [facility] Thin prep Papanicolaou smear with manual screeningOrdered By: Darlyn Waleska on 08-06-2022 Thin prep Papanicolaou smear with manual screening 6 5-15 [facility] Absolute lymphocyte countOrd ered By: Vidal Alannils on 08-03-2022 Lymphocytes Auto (Unsp spec) [#/Vol] 0.99 10*3/uL 0.83-4.51 [facility] Basophil percentageOrdered B y: Vidal Solorio on 08-03-2022 Basophil percentage 0-5 SEEN /hpf 0-5 [facility] Basophil percentage 270 mg/dL 74-106 [facility] Basophil percentage 7.6 g/dL 6.4-8.2 [facility] Basophil percentage 1.10 mg/dL 0.20-1.00 [facility] Basophil percentage 135 mmol/L 136-145 [facility] Basophil percentage 4.5 mmol/L 3.5-5.1 [facility] Basophil percentage 99 mmol/L 98-107 [facility] Basophils (Bld) [#/Vol] 12.4 10*3/uL 4.4-11.0 [facility] Basophils (Bld) [#/Vol] 10.8 10*3/uL 2.0-7.7 [facility] [facility] Bas[facility]/100 WBC (Bld) 0.6 % 0-1 [facility] Basophils/100 WBC (Bld) 87.4 % 47-70 [facility] Basophils/100 WBC (Bld) 0.4 % 0-5 [facility] Bilirubin [Mass/Vol] 1.10 mg/dL 0.20-1.00 [facility] Comment on above: For patients on eltr ombopag therapy, use of Dimension [place] TBIL is not recommended. Chloride [Moles/Vol] 99 mmol/L 98-107 [facility] Eosinophils/100 WBC (Bld) 0.4 % 0-5 [facility] Glucose [Mass/Vol] 270 mg/dL 74-106 [facility] Comment on above: Glucose result great er than or equal to 200 mg/dLsuggests DIABETES MELLITUS per A.D.A. criteria. Neutrophils (Bld) [#/Vol] 10.8 10*3/uL 2.0-7.7 [facility] Neutrophils/100 WBC (Bld) 87.4 % 47-70 [facility] Potassium [Moles/Vol] 4.5 mmol/L 3.5-5.1 [facility] Protein [Mass/Vol] 7.6 g/dL 6.4-8.2 [facility] Sodium [Moles/Vol] 135 mmol/L 136-145 [facility] WBC (Bld) [#/Vol] 12.4 10*3/uL 4.4-11.0 [facility] Bilirubin Test strip Ql (U)O rdered By: Vidal Solorio on 08-03-2022 Bilirubin Ql (U) Negative Negative [facility] Blood erythrocytes count (nu mber/volume)Ordered By: Vidal Solorio on 08-03-2022 RBC (Bld) [#/Vol] 5.73 10*6/uL 4.2-5.4 [facility] Blood hemoglobin measurement (mass/volume)Ordered By: Vidal Solorio on 08-03-2022 Hemoglobin (Bld) [Mass/Vol] 16.2 g/dL 12.0-15.0 [facility] Blood lymphocytes/100 leukoc ytesOrdered By: Vidal Solorio on 08-03-2022 Lymphocytes/100 WBC (Bld) 8.0 % 19-41 [facility] Blood monocytes/100 leukocyt esOrdered By: Vidal Solorio on 08-03-2022 Monocytes/100 WBC (Bld) 3.2 % 0-10 [facility] Blood platelet mean volumeOr dered By: Vidal Solorio on 08-03-2022 Platelet mean volume (Bld) [Entitic vol] 9.9 fL 6.2-12.0 [facility] Determination of erythrocyte mean corpuscular volume (MCV)Ordered By: Vidal Solorio on 08-03-2022 MCV (RBC) [Entitic vol] 84.5 fL 81-99 [facility] Hematocrit Auto (Bld) [Volum e fraction]Ordered By: Vidal Solorio on 08-03-2022 Hematocrit (Bld) [Volume fraction] 48.4 % 37-47 [facility] Ketones Test strip Ql (U)Ord ered By: Vidal Solorio on 08-03-2022 Ketones Ql (U) 15 mg/dl Negative [facility] Laboratory - Chemistry and C hemistry - challengeOrdered By: Vidal Solorio on 08-03-2022 ALP [Catalytic activity/Vol] 120 U/L 45-117 [facility] ALT [Catalytic activity/Vol] 15 U/L 13-56 [facility] CO2 [Moles/Vol] 27.0 mmol/L 21.0-32.0 [facility] Globulin (S) [Mass/Vol] 4.5 g/dL 2.2-4.2 [facility] Lipase [Catalytic activity/Vol] 68 U/L 73-393 [facility] Urea nitrogen/Creatinine [Mass ratio] 15.6 mg/mg 10-20 [facility] Laboratory - Hematology and Cell countsOrdered By: Vidal Solorio on 08-03-2022 Erythrocyte distribution width (RBC) [Entitic vol] 37.5 fL 35.1-43.9 [facility] Erythrocyte distribution width (RBC) [Ratio] 12.3 % 11.6-14.6 [facility] Immature granulocytes/100 WBC (Bld) 0.400 % 0.0-0.9 [facility] Comment on above: IG% - Immature Granu locytes (promyelocytes, myelocytes and metamyelocytes) > 1% indicates that a LEFT SHIFT is Present. MCH (RBC) [Entitic mass] 28.3 pg 27.0-32.0 [facility] Nucleated RBC/100 WBC (Bld) [Ratio] 0 % 0-5 [facility] MCHC Auto (RBC) [Mass/Vol]Or dered By: Vidal Solorio on 08-03-2022 MCHC (RBC) [Mass/Vol] 33.5 g/dL 32-36 [facility] Mucus LM Ql (Urine sed)Order ed By: Vidal Solorio on 08-03-2022 Mucus Ql (Urine sed) 0 SEEN /hpf [facility] Nitrite Test strip Ql (U)Ord ered By: Vidal Solorio on 08-03-2022 Nitrite Ql (U) Negative Negative [facility] No Panel InformationOrdered By: Vidal Solorio on 08-03-2022 Troponin I High Sensitivity 12 pg/mL 3.0-54.0 [facility] Comment on above: Please Note: New Junie t Units and Gender Specific Reference Ranges. For more information see Policy Stat Procedure [place] High Sensitivity Troponin (TNIH) and attachments. 12 pg/mL 3.0-54.0 [facility] Estimated Creatinine Clearance Calc 102.27 ml/min [facility] Estimated GFR (MDRD) Amer 126 mL/min >60 [facility] Comment on above: GFR Calc Estimated GFR (MDRD) Non-Af Amer 104 mL/min >60 [facility] Comment on above: Non- GFR Calc 28.3 pg 27.0-32.0 [facility] 12.3 % 11.6-14.6 [facility] 37.5 fl 35.1-43.9 [facility] 0.400 % 0.0-0.9 [facility] 0 % 0-5 [facility] 104 mL/min >60 [facility] 126 mL/min >60 [facility] 102.27 ml/min [facility] 15.6 RATIO 10-20 [facility] 4.5 g/dL 2.2-4.2 [facility] 68 U/L 73-393 [facility] 120 U/L 45-117 [facility] 15 U/L 13-56 [facility] 27.0 mmol/L 21.0-32.0 [facility] Platelets bldOrdered By: Roxi Solorio on 08-03-2022 Platelets (Bld) [#/Vol] 233 10*3/uL 150-450 [facility] Protein Test strip Ql (U)Ord ered By: Vidal Solorio on 08-03-2022 Protein Ql (U) 100 mg/dl Negative [facility] Serum or plasma albumin xiomara urement (mass/volume)Ordered By: Vidal Solorio on 08-03-2022 Albumin [Mass/Vol] 3.1 g/dL 3.2-5.0 [facility] Serum or plasma albumin/glob ulin mass ratioOrdered By: Vidal Solorio on 08-03-2022 Albumin/Globulin [Mass ratio] 0.7 {ratio} 0.9-2.4 [facility] Serum or plasma calcium xiomara urement (mass/volume)Ordered By: Vidal Solorio on 08-03-2022 Calcium [Mass/Vol] 9.4 mg/dL 8.5-10.1 [facility] Serum or plasma creatinine m easurement (mass/volume)Ordered By: Vidal Solorio on 08-03-2022 Creatinine [Mass/Vol] 0.64 mg/dL 0.55-1.02 [facility] Comment on above: The validity of the calculated GFR & GFRAA in patients over 70 years has not been determined. Clinical correlation is essential. Serum or plasma urea nitroge n measurement (mass/volume)Ordered By: Vidal Solorio on 08-03-2022 Urea nitrogen [Mass/Vol] 10 mg/dL 7-18 [facility] Squamous epithelial cells de tection in urine sediment by light microscopyOrdered By: Vidal Solorio on 08-03-2022 Epithelial cells.squamous LM Ql (Urine sed) 0-5 SEEN /hpf 5-10 [facility] Thin prep Papanicolaou smear with manual screeningOrdered By: Vidal Solorio on 08-03-2022 Thin prep Papanicolaou smear with manual screening 15 U/L 15-37 [facility] Thin prep Papanicolaou smear with manual screening 9 5-15 [facility] Urine blood detectionOrdered By: Vidal Solorio on 08-03-2022 RBC Ql (U) 50 /ul Negative [facility] RBC Ql (U) 0-5 SEEN /hpf 0-5 [facility] Urine clarityOrdered By: Roxi Solorio on 08-03-2022 Clarity (U) Clear Clear [facility] Urine color determinationOrd ered By: Vidal Solorio on 08-03-2022 Color (U) Yellow Yellow [facility] Urine glucose detectionOrder ed By: Vidal Solorio on 08-03-2022 Glucose Ql (U) 1000 mg/dl Normal [facility] Urine leukocyte esterase det ection by dipstickOrdered By: Vidal Solorio on 08-03-2022 Leukocyte esterase Test strip Ql (U) 100 /ul Negative [facility] Urine pHOrdered By: Vidal wray on 08-03-2022 pH (U) 7.0 [pH] 5.0 - 8.0 [facility] Urine sediment bacteria coun t by microscopy (number/high power field)Ordered By: Vidal Solorio on 08-03-2022 Bacteria LM.HPF (Urine sed) [#/Area] 0 /[HPF] None Seen [facility] Urine specific gravity measu rementOrdered By: Vidal Solorio on 08-03-2022 Specific gravity (U) [Rel density] 1.010 1.002-1.03 0 [facility] Urobilinogen Auto test strip Ql (U)Ordered By: Vidal Solorio on 08-03-2022 Urobilinogen Ql (U) Normal mg/dl Normal [facility] Absolute lymphocyte countOrd ered By: Dr. Mcneal on 07-25-2022 Lymphocytes Auto (Unsp spec) [#/Vol] 1.18 10*3/uL 0.83-4.51 [facility] Basophil percentageOrdered B y: Dr. Mcneal on 07-25-2022 Basophil percentage 415 mg/dL 74-106 [facility] Basophil percentage 6.6 g/dL 6.4-8.2 [facility] Basophil percentage 0.40 mg/dL 0.20-1.00 [facility] Basophil percentage 135 mmol/L 136-145 [facility] Basophil percentage 4.1 mmol/L 3.5-5.1 [facility] Basophil percentage 101 mmol/L 98-107 [facility] Bilirubin [Mass/Vol] 0.40 mg/dL 0.20-1.00 [facility] Comment on above: For patients on eltr ombopag therapy, use of Dimension [place] TBIL is not recommended. Chloride [Moles/Vol] 101 mmol/L 98-107 [facility] Glucose [Mass/Vol] 415 mg/dL 74-106 [facility] Comment on above: Glucose result great er than or equal to 200 mg/dLsuggests DIABETES MELLITUS per A.D.A. criteria. Potassium [Moles/Vol] 4.1 mmol/L 3.5-5.1 [facility] Comment on above: Slight Hemolysis, Re sult may be falsely increased. Protein [Mass/Vol] 6.6 g/dL 6.4-8.2 [facility] Sodium [Moles/Vol] 135 mmol/L 136-145 [facility] Basophils (Bld) [#/Vol] 8.6 10*3/uL 4.4-11.0 [facility] Basophils (Bld) [#/Vol] 6.8 10*3/uL 2.0-7.7 [facility] Basophils/100 WBC (Bld) 0.7 % 0-1 [facility] Basophils/100 WBC (Bld) 78.2 % 47-70 [facility] Basophils/100 WBC (Bld) 1.6 % 0-5 [facility] Eosinophils/100 WBC (Bld) 1.6 % 0-5 [facility] Neutrophils (Bld) [#/Vol] 6.8 10*3/uL 2.0-7.7 [facility] Neutrophils/100 WBC (Bld) 78.2 % 47-70 [facility] WBC (Bld) [#/Vol] 8.6 10*3/uL 4.4-11.0 [facility] Blood erythrocytes count (nu mber/volume)Ordered By: Dr. Mcneal on 07-25-2022 RBC (Bld) [#/Vol] 5.96 10*6/uL 4.2-5.4 [facility] Blood hemoglobin measurement (mass/volume)Ordered By: Dr. Mcneal on 07-25-2022 Hemoglobin (Bld) [Mass/Vol] 16.9 g/dL 12.0-15.0 [facility] Blood lymphocytes/100 leukoc ytesOrdered By: Dr. Mcneal on 07-25-2022 Lymphocytes/100 WBC (Bld) 13.7 % 19-41 [facility] Blood monocytes/100 leukocyt esOrdered By: Dr. Mcneal on 07-25-2022 Monocytes/100 WBC (Bld) 5.2 % 0-10 [facility] Blood platelet mean volumeOr dered By: Dr. Mcneal on 07-25-2022 Platelet mean volume (Bld) [Entitic vol] 10.2 fL 6.2-12.0 [facility] Determination of erythrocyte mean corpuscular volume (MCV)Ordered By: Dr. Mcneal on 07-25-2022 MCV (RBC) [Entitic vol] 84.6 fL 81-99 [facility] Hematocrit Auto (Bld) [Volum e fraction]Ordered By: Dr. Mcneal on 07-25-2022 Hematocrit (Bld) [Volume fraction] 50.4 % 37-47 [facility] Laboratory - Chemistry and C hemistry - challengeOrdered By: Dr. Mcneal on 07-25-2022 ALP [Catalytic activity/Vol] 113 U/L 45-117 [facility] ALT [Catalytic activity/Vol] 15 U/L 13-56 [facility] CO2 [Moles/Vol] 27.0 mmol/L 21.0-32.0 [facility] Globulin (S) [Mass/Vol] 4.0 g/dL 2.2-4.2 [facility] Lipase [Catalytic activity/Vol] 104 U/L 73-393 [facility] Urea nitrogen/Creatinine [Mass ratio] 14.9 mg/mg 10-20 [facility] Laboratory - Hematology and Cell countsOrdered By: Dr. Mcneal on 07-25-2022 Erythrocyte distribution width (RBC) [Entitic vol] 38.3 fL 35.1-43.9 [facility] Erythrocyte distribution width (RBC) [Ratio] 12.4 % 11.6-14.6 [facility] Immature granulocytes/100 WBC (Bld) 0.600 % 0.0-0.9 [facility] Comment on above: IG% - Immature Granu locytes (promyelocytes, myelocytes and metamyelocytes) > 1% indicates that a LEFT SHIFT is Present. MCH (RBC) [Entitic mass] 28.4 pg 27.0-32.0 [facility] Nucleated RBC/100 WBC (Bld) [Ratio] 0 % 0-5 [facility] MCHC Auto (RBC) [Mass/Vol]Or dered By: Dr. Mcneal on 07-25-2022 MCHC (RBC) [Mass/Vol] 33.5 g/dL 32-36 [facility] No Panel InformationOrdered By: Dr. Mcneal on 07-25-2022 Estimated Creatinine Clearance Calc 81.81 ml/min [facility] Estimated GFR (MDRD) Amer 97 mL/min >60 [facility] Comment on above: GFR Calc Estimated GFR (MDRD) Non-Af Amer 80 mL/min >60 [facility] Comment on above: Non- GFR Calc Troponin I High Sensitivity 10 pg/mL 3.0-54.0 [facility] Comment on above: Please Note: New Junie t Units and Gender Specific Reference Ranges. For more information see Policy Stat Procedure [place] High Sensitivity Troponin (TNIH) and attachments. 80 mL/min >60 [facility] 97 mL/min >60 [facility] 81.81 ml/min [facility] 14.9 RATIO 10-20 [facility] 4.0 g/dL 2.2-4.2 [facility] 104 U/L 73-393 [facility] 10 pg/mL 3.0-54.0 [facility] 113 U/L 45-117 [facility] 15 U/L 13-56 [facility] 27.0 mmol/L 21.0-32.0 [facility] 28.4 pg 27.0-32.0 [facility] 12.4 % 11.6-14.6 [facility] 38.3 fl 35.1-43.9 [facility] 0.600 % 0.0-0.9 [facility] 0 % 0-5 [facility] Platelets bldOrdered By: Dr. Mcneal on 07-25-2022 Platelets (Bld) [#/Vol] 163 10*3/uL 150-450 [facility] Serum or plasma albumin xiomara urement (mass/volume)Ordered By: Dr. Mcneal on 07-25-2022 Albumin [Mass/Vol] 2.6 g/dL 3.2-5.0 [facility] Serum or plasma albumin/glob ulin mass ratioOrdered By: Dr. Mcneal on 07-25-2022 Albumin/Globulin [Mass ratio] 0.6 {ratio} 0.9-2.4 [facility] Serum or plasma calcium xiomara urement (mass/volume)Ordered By: Dr. Mcneal on 07-25-2022 Calcium [Mass/Vol] 8.6 mg/dL 8.5-10.1 [facility] Serum or plasma creatinine m easurement (mass/volume)Ordered By: Dr. Mcneal on 07-25-2022 Creatinine [Mass/Vol] 0.80 mg/dL 0.55-1.02 [facility] Comment on above: The validity of the calculated GFR & GFRAA in patients over 70 years has not been determined. Clinical correlation is essential. Serum or plasma urea nitroge n measurement (mass/volume)Ordered By: Dr. Mcneal on 07-25-2022 Urea nitrogen [Mass/Vol] 12 mg/dL 7-18 [facility] Thin prep Papanicolaou smear with manual screeningOrdered By: Dr. Mcneal on 07-25-2022 Thin prep Papanicolaou smear with manual screening 17 U/L 15-37 [facility] Comment on above: Slight Hemolysis, Re sult may be falsely increased. Thin prep Papanicolaou smear with manual screening 7 5-15 [facility] Absolute lymphocyte countOrd ered By: ED PROVIDER on 05-19-2022 Lymphocytes Auto (Unsp spec) [#/Vol] 1.58 10*3/uL 0.83-4.51 [facility] Basophil percentageOrdered B y: ED PROVIDER on 05-19-2022 Basophil percentage 402 mg/dL 74-106 [facility] Basophil percentage 131 mmol/L 136-145 [facility] Basophil percentage 4.5 mmol/L 3.5-5.1 [facility] Basophil percentage 97 mmol/L 98-107 [facility] Basophils (Bld) [#/Vol] 11.3 10*3/uL 4.4-11.0 [facility] Basophils (Bld) [#/Vol] 9.1 10*3/uL 2.0-7.7 [facility] Basophils/100 WBC (Bld) 0.7 % 0-1 [facility] Basophils/100 WBC (Bld) 79.9 % 47-70 [facility] Basophils/100 WBC (Bld) 1.0 % 0-5 [facility] Chloride [Moles/Vol] 97 mmol/L 98-107 [facility] Eosinophils/100 WBC (Bld) 1.0 % 0-5 [facility] Glucose [Mass/Vol] 402 mg/dL 74-106 [facility] Comment on above: Glucose result great er than or equal to 200 mg/dLsuggests DIABETES MELLITUS per A.D.A. criteria. Neutrophils (Bld) [#/Vol] 9.1 10*3/uL 2.0-7.7 [facility] Neutrophils/100 WBC (Bld) 79.9 % 47-70 [facility] Potassium [Moles/Vol] 4.5 mmol/L 3.5-5.1 [facility] Comment on above: Moderate Hemolysis, Result may be falsely increased. Sodium [Moles/Vol] 131 mmol/L 136-145 [facility] WBC (Bld) [#/Vol] 11.3 10*3/uL 4.4-11.0 [facility] Beta hCG serum qualOrdered B y: ED PROVIDER on 05-19-2022 Beta HCG ( test) Ql Negative [facility] Blood erythrocytes count (nu mber/volume)Ordered By: ED PROVIDER on 05-19-2022 RBC (Bld) [#/Vol] 5.80 10*6/uL 4.2-5.4 [facility] Blood hemoglobin measurement (mass/volume)Ordered By: ED PROVIDER on 05-19-2022 Hemoglobin (Bld) [Mass/Vol] 16.2 g/dL 12.0-15.0 [facility] Blood lymphocytes/100 leukoc ytesOrdered By: ED PROVIDER on 05-19-2022 Lymphocytes/100 WBC (Bld) 13.9 % 19-41 [facility] Blood monocytes/100 leukocyt esOrdered By: ED PROVIDER on 05-19-2022 Monocytes/100 WBC (Bld) 4.0 % 0-10 [facility] Blood platelet mean volumeOr dered By: ED PROVIDER on 05-19-2022 Platelet mean volume (Bld) [Entitic vol] 9.7 fL 6.2-12.0 [facility] Determination of erythrocyte mean corpuscular volume (MCV)Ordered By: ED PROVIDER on 05-19-2022 MCV (RBC) [Entitic vol] 84.3 fL 81-99 [facility] Hematocrit Auto (Bld) [Volum e fraction]Ordered By: ED PROVIDER on 05-19-2022 Hematocrit (Bld) [Volume fraction] 48.9 % 37-47 [facility] - Chemistry and C hemistry - challengeOrdered By: ED PROVIDER on 05-19-2022 CO2 [Moles/Vol] 28.0 mmol/L 21.0-32.0 [facility] Urea nitrogen/Creatinine [Mass ratio] 10.2 mg/mg 10- [facility] - Hematology and Cell countsOrdered By: ED PROVIDER on 05-19-2022 Erythrocyte distribution width (RBC) [Entitic vol] 41.3 fL 35.1-43.9 [facility] Erythrocyte distribution width (RBC) [Ratio] 13.5 % 11.6-14.6 [facility] Immature granulocytes/100 WBC (Bld) 0.500 % 0.0-0.9 [facility] Comment on above: IG% - Immature Granu locytes (promyelocytes, myelocytes and metamyelocytes) > 1% indicates that a LEFT SHIFT is Present. MCH (RBC) [Entitic mass] 27.9 pg 27.0-32.0 [facility] Nucleated RBC/100 WBC (Bld) [Ratio] 0 % 0-5 [facility] MCHC Auto (RBC) [Mass/Vol]Or dered By: ED PROVIDER on 05-19-2022 MCHC (RBC) [Mass/Vol] 33.1 g/dL 32-36 [facility] No Panel InformationOrdered By: ED PROVIDER on 05-19-2022 Estimated Creatinine Clearance Calc 83.91 ml/min [facility] Estimated GFR (MDRD) Amer 100 mL/min >60 [facility] Comment on above: GFR Calc Estimated GFR (MDRD) Non-Af Amer 82 mL/min >60 [facility] Comment on above: Non- GFR Calc 27.9 pg 27.0-32.0 [facility] 13.5 % 11.6-14.6 [facility] 41.3 fl 35.1-43.9 [facility] 0.500 % 0.0-0.9 [facility] 0 % 0-5 [facility] 82 mL/min >60 [facility] 100 mL/min >60 [facility] 83.91 ml/min [facility] 10.2 RATIO 10- [facility] 28.0 mmol/L 21.0-32.0 [facility] Platelets bldOrdered By: ED PROVIDER on 05-19-2022 Platelets (Bld) [#/Vol] 260 10*3/uL 150-450 [facility] Serum or plasma calcium xiomara urement (mass/volume)Ordered By: ED PROVIDER on 05-19-2022 Calcium [Mass/Vol] 9.2 mg/dL 8.5-10.1 [facility] Serum or plasma creatinine m easurement (mass/volume)Ordered By: ED PROVIDER on 05-19-2022 Creatinine [Mass/Vol] 0.78 mg/dL 0.55-1.02 [facility] Comment on above: The validity of the calculated GFR & GFRAA in patients over 70 years has not been determined. Clinical correlation is essential. Serum or plasma urea nitroge n measurement (mass/volume)Ordered By: ED PROVIDER on 05-19-2022 Urea nitrogen [Mass/Vol] 8 mg/dL 7-18 [facility] Thin prep Papanicolaou smear with manual screeningOrdered By: ED PROVIDER on 05-19-2022 Thin prep Papanicolaou smear with manual screening 6 5-15 [facility] Absolute lymphocyte countOrd ered By: Conor Martin on 05-09-2022 Lymphocytes Auto (Unsp spec) [#/Vol] 0.43 10*3/uL 0.83-4.51 [facility] Basophil percentageOrdered B y: Conor Martin on 05-09-2022 Basophils/100 WBC (Bld) 0.4 % 0-1 [facility] Bilirubin [Mass/Vol] 1.40 mg/dL 0.20-1.00 [facility] Comment on above: For patients on eltr ombopag therapy, use of Dimension [place] TBIL is not recommended. Chloride [Moles/Vol] 100 mmol/L 98-107 [facility] Eosinophils/100 WBC (Bld) 0.8 % 0-5 [facility] Glucose [Mass/Vol] 364 mg/dL 74-106 [facility] Comment on above: Glucose result great er than or equal to 200 mg/dLsuggests DIABETES MELLITUS per A.D.A. criteria. Neutrophils (Bld) [#/Vol] 9.6 10*3/uL 2.0-7.7 [facility] Neutrophils/100 WBC (Bld) 89.6 % 47-70 [facility] Potassium [Moles/Vol] 4.6 mmol/L 3.5-5.1 [facility] Comment on above: Moderate Hemolysis, Result may be falsely increased. Protein [Mass/Vol] 7.7 g/dL 6.4-8.2 [facility] Sodium [Moles/Vol] 133 mmol/L 136-145 [facility] WBC (Bld) [#/Vol] 10.7 10*3/uL 4.4-11.0 [facility] Blood erythrocytes count (nu mber/volume)Ordered By: Conor Martin on 05-09-2022 RBC (Bld) [#/Vol] 5.49 10*6/uL 4.2-5.4 [facility] Blood hemoglobin measurement (mass/volume)Ordered By: Conor Martin on 05-09-2022 Hemoglobin (Bld) [Mass/Vol] 15.5 g/dL 12.0-15.0 [facility] Blood lymphocytes/100 leukoc ytesOrdered By: Conor Martin on 05-09-2022 Lymphocytes/100 WBC (Bld) 4.0 % 19-41 [facility] Blood manual differential co mment interpretation (narrative result)Ordered By: Conor Martin on 05-09-2022 Manual differential comment Main (Bld) [Interp] SCANNED [facility] Comment on above: LYMPHOPENIA NOTED Blood monocytes/100 leukocyt esOrdered By: Conor Martin on 05-09-2022 Monocytes/100 WBC (Bld) 4.8 % 0-10 [facility] Blood platelet mean volumeOr dered By: Conor Martin on 05-09-2022 Platelet mean volume (Bld) [Entitic vol] 9.6 fL 6.2-12.0 [facility] Determination of erythrocyte mean corpuscular volume (MCV)Ordered By: Conor Martni on 05-09-2022 MCV (RBC) [Entitic vol] 84.9 fL 81-99 [facility] Direct bilirubinOrdered By: Conor Martin on 05-09-2022 Bilirubin.direct [Mass/Vol] 0.18 mg/dL 0.00-0.30 [facility] Hematocrit Auto (Bld) [Volum e fraction]Ordered By: Conor Martin on 05-09-2022 Hematocrit (Bld) [Volume fraction] 46.6 % 37-47 [facility] Influenza virus A and B and SARS-CoV-2 (COVID-19) Ag panel - Upper respiratory specimOrdered By: Conor Martin on 05-09-2022 SARS-CoV-2 & FLU Antigen (Rapid) Influenzae A [facility] - Chemistry and C hemistry - challengeOrdered By: Conor Martin on 05-09-2022 ALP [Catalytic activity/Vol] 142 U/L 45-117 [facility] ALT [Catalytic activity/Vol] 17 U/L 13-56 [facility] CO2 [Moles/Vol] 29.0 mmol/L 21.0-32.0 [facility] Globulin (S) [Mass/Vol] 4.5 g/dL 2.2-4.2 [facility] Lipase [Catalytic activity/Vol] 89 U/L 73-393 [facility] Urea nitrogen/Creatinine [Mass ratio] 15.2 mg/mg 10-20 [facility] - Hematology and Cell countsOrdered By: Conor Martin on 05-09-2022 Erythrocyte distribution width (RBC) [Entitic vol] 41.5 fL 35.1-43.9 [facility] Erythrocyte distribution width (RBC) [Ratio] 13.5 % 11.6-14.6 [facility] Immature granulocytes/100 WBC (Bld) 0.400 % 0.0-0.9 [facility] Comment on above: IG% - Immature Granu locytes (promyelocytes, myelocytes and metamyelocytes) > 1% indicates that a LEFT SHIFT is Present. MCH (RBC) [Entitic mass] 28.2 pg 27.0-32.0 [facility] Nucleated RBC/100 WBC (Bld) [Ratio] 0 % 0-5 [facility] MCHC Auto (RBC) [Mass/Vol]Or dered By: Conor Martin on 05-09-2022 MCHC (RBC) [Mass/Vol] 33.3 g/dL 32-36 [facility] No Panel InformationOrdered By: Conor Martin on 05-09-2022 Estimated Creatinine Clearance Calc 90.90 ml/min [facility] Estimated GFR (MDRD) Amer 110 mL/min >60 [facility] Comment on above: GFR Calc Estimated GFR (MDRD) Non-Af Amer 91 mL/min >60 [facility] Comment on above: Non- GFR Calc Platelets bldOrdered By: Jose Martin on 05-09-2022 Platelets (Bld) [#/Vol] 289 10*3/uL 150-450 [facility] Serum or plasma acetone xiomara urement (mass/volume)Ordered By: Conor Martin on 05-09-2022 Acetone [Mass/Vol] Negative NEG [facility] Serum or plasma albumin xiomara urement (mass/volume)Ordered By: Conor Martin on 05-09-2022 Albumin [Mass/Vol] 3.2 g/dL 3.2-5.0 [facility] Serum or plasma calcium xiomara urement (mass/volume)Ordered By: Conor Martin on 05-09-2022 Calcium [Mass/Vol] 9.4 mg/dL 8.5-10.1 [facility] Serum or plasma creatinine m easurement (mass/volume)Ordered By: Conor Martin on 05-09-2022 Creatinine [Mass/Vol] 0.72 mg/dL 0.55-1.02 [facility] Comment on above: The validity of the calculated GFR & GFRAA in patients over 70 years has not been determined. Clinical correlation is essential. Serum or plasma urea nitroge n measurement (mass/volume)Ordered By: Conor Martin on 05-09-2022 Urea nitrogen [Mass/Vol] 11 mg/dL 7-18 [facility] Thin prep Papanicolaou smear with manual screeningOrdered By: Conor Martin on 05-09-2022 Thin prep Papanicolaou smear with manual screening 21 U/L 15-37 [facility] Comment on above: Moderate Hemolysis, Result may be falsely increased. Thin prep Papanicolaou smear with manual screening 4 5-15 [facility] Progress Noteon 05-02-2022 Progress Note CD UPLOADED. IMAGES IN AGFA. Normal [facility] Absolute lymphocyte countOrd ered By: Dr. Mcneal on 04-17-2022 Lymphocytes Auto (Unsp spec) [#/Vol] 1.46 10*3/uL 0.83-4.51 [facility] Basophil percentageOrdered B y: Dr. Mcneal on 04-17-2022 Basophils/100 WBC (Bld) 0.7 % 0-1 [facility] Bilirubin [Mass/Vol] 1.00 mg/dL 0.20-1.00 [facility] Comment on above: For patients on eltr ombopag therapy, use of Dimension [place] TBIL is not recommended. Chloride [Moles/Vol] 100 mmol/L 98-107 [facility] Eosinophils/100 WBC (Bld) 1.2 % 0-5 [facility] Glucose [Mass/Vol] 368 mg/dL 74-106 [facility] Comment on above: Glucose result great er than or equal to 200 mg/dLsuggests DIABETES MELLITUS per A.D.A. criteria. Neutrophils (Bld) [#/Vol] 9.0 10*3/uL 2.0-7.7 [facility] Neutrophils/100 WBC (Bld) 79.1 % 47-70 [facility] Potassium [Moles/Vol] 3.5 mmol/L 3.5-5.1 [facility] Protein [Mass/Vol] 6.6 g/dL 6.4-8.2 [facility] Sodium [Moles/Vol] 136 mmol/L 136-145 [facility] WBC (Bld) [#/Vol] 11.4 10*3/uL 4.4-11.0 [facility] Blood erythrocytes count (nu mber/volume)Ordered By: Dr. Mcneal on 04-17-2022 RBC (Bld) [#/Vol] 5.50 10*6/uL 4.2-5.4 [facility] Blood hemoglobin measurement (mass/volume)Ordered By: Dr. Mcneal on 04-17-2022 Hemoglobin (Bld) [Mass/Vol] 15.9 g/dL 12.0-15.0 [facility] Blood lymphocytes/100 leukoc ytesOrdered By: Dr. Mcneal on 04-17-2022 Lymphocytes/100 WBC (Bld) 12.8 % 19-41 [facility] Blood monocytes/100 leukocyt esOrdered By: Dr. Mcneal on 04-17-2022 Monocytes/100 WBC (Bld) 5.9 % 0-10 [facility] Blood platelet mean volumeOr dered By: Dr. Mcneal on 04-17-2022 Platelet mean volume (Bld) [Entitic vol] 9.4 fL 6.2-12.0 [facility] Determination of erythrocyte mean corpuscular volume (MCV)Ordered By: Dr. Mcneal on 04-17-2022 MCV (RBC) [Entitic vol] 83.3 fL 81-99 [facility] Hematocrit Auto (Bld) [Volum e fraction]Ordered By: Dr. Mcneal on 04-17-2022 Hematocrit (Bld) [Volume fraction] 45.8 % 37-47 [facility] Laboratory - Chemistry and C hemistry - challengeOrdered By: Dr. Mcneal on 04-17-2022 ALP [Catalytic activity/Vol] 132 U/L 45-117 [facility] ALT [Catalytic activity/Vol] 31 U/L 13-56 [facility] CO2 [Moles/Vol] 28.0 mmol/L 21.0-32.0 [facility] Globulin (S) [Mass/Vol] 3.6 g/dL 2.2-4.2 [facility] Urea nitrogen/Creatinine [Mass ratio] 7.8 mg/mg 10-20 [facility] Laboratory - Hematology and Cell countsOrdered By: Dr. Mcneal on 04-17-2022 Erythrocyte distribution width (RBC) [Entitic vol] 38.7 fL 35.1-43.9 [facility] Erythrocyte distribution width (RBC) [Ratio] 12.8 % 11.6-14.6 [facility] Immature granulocytes/100 WBC (Bld) 0.300 % 0.0-0.9 [facility] Comment on above: IG% - Immature Granu locytes (promyelocytes, myelocytes and metamyelocytes) > 1% indicates that a LEFT SHIFT is Present. MCH (RBC) [Entitic mass] 28.9 pg 27.0-32.0 [facility] Nucleated RBC/100 WBC (Bld) [Ratio] 0 % 0-5 [facility] MCHC Auto (RBC) [Mass/Vol]Or dered By: Dr. Mcneal on 04-17-2022 MCHC (RBC) [Mass/Vol] 34.7 g/dL 32-36 [facility] No Panel InformationOrdered By: Dr. Mcneal on 04-17-2022 Estimated Creatinine Clearance Calc 85.00 ml/min [facility] Estimated GFR (MDRD) Amer 102 mL/min >60 [facility] Comment on above: GFR Calc Estimated GFR (MDRD) Non-Af Amer 84 mL/min >60 [facility] Comment on above: Non- GFR Calc Platelets bldOrdered By: Dr. Mcneal on 04-17-2022 Platelets (Bld) [#/Vol] 234 10*3/uL 150-450 [facility] Serum or plasma albumin xiomara urement (mass/volume)Ordered By: Dr. Mcneal on 04-17-2022 Albumin [Mass/Vol] 3.0 g/dL 3.2-5.0 [facility] Serum or plasma albumin/glob ulin mass ratioOrdered By: Dr. Mcneal on 04-17-2022 Albumin/Globulin [Mass ratio] 0.8 {ratio} 0.9-2.4 [facility] Serum or plasma calcium xiomara urement (mass/volume)Ordered By: Dr. Mcneal on 04-17-2022 Calcium [Mass/Vol] 9.0 mg/dL 8.5-10.1 [facility] Serum or plasma creatinine m easurement (mass/volume)Ordered By: Dr. Mcneal on 04-17-2022 Creatinine [Mass/Vol] 0.77 mg/dL 0.55-1.02 [facility] Comment on above: The validity of the calculated GFR & GFRAA in patients over 70 years has not been determined. Clinical correlation is essential. Serum or plasma urea nitroge n measurement (mass/volume)Ordered By: Dr. Mcneal on 04-17-2022 Urea nitrogen [Mass/Vol] 6 mg/dL 7-18 [facility] Thin prep Papanicolaou smear with manual screeningOrdered By: Dr. Mcneal on 04-17-2022 Thin prep Papanicolaou smear with manual screening 25 U/L 15-37 [facility] Thin prep Papanicolaou smear with manual screening 8 5-15 [facility] Absolute lymphocyte countOrd ered By: Dr. Abrams on 03-27-2022 Lymphocytes Auto (Unsp spec) [#/Vol] 1.61 10*3/uL 0.83-4.51 [facility] Basophil percentageOrdered B y: Dr. Abrams on 03-27-2022 Basophils/100 WBC (Bld) 0.7 % 0-1 [facility] Bilirubin [Mass/Vol] 1.20 mg/dL 0.20-1.00 [facility] Comment on above: For patients on eltr ombopag therapy, use of Dimension [place] TBIL is not recommended. Chloride [Moles/Vol] 94 mmol/L 98-107 [facility] Eosinophils/100 WBC (Bld) 1.0 % 0-5 [facility] Glucose [Mass/Vol] 477 mg/dL 74-106 [facility] Comment on above: Critical Result(s) C alled at: 11:26:10 03/27/2022 by: Tc Montana RN (ER). Results read back by same.Glucose result greater than or equal to 200 mg/dLsuggests DIABETES MELLITUS per A.D.A. criteria. Neutrophils (Bld) [#/Vol] 8.9 10*3/uL 2.0-7.7 [facility] Neutrophils/100 WBC (Bld) 80.1 % 47-70 [facility] Potassium [Moles/Vol] 4.5 mmol/L 3.5-5.1 [facility] Protein [Mass/Vol] 7.3 g/dL 6.4-8.2 [facility] Sodium [Moles/Vol] 131 mmol/L 136-145 [facility] WBC (Bld) [#/Vol] 11.2 10*3/uL 4.4-11.0 [facility] Blood erythrocytes count (nu mber/volume)Ordered By: Dr. Abrams on 03-27-2022 RBC (Bld) [#/Vol] 5.95 10*6/uL 4.2-5.4 [facility] Blood hemoglobin measurement (mass/volume)Ordered By: Dr. Abrams on 03-27-2022 Hemoglobin (Bld) [Mass/Vol] 16.6 g/dL 12.0-15.0 [facility] Blood lymphocytes/100 leukoc ytesOrdered By: Dr. Abrams on 03-27-2022 Lymphocytes/100 WBC (Bld) 14.4 % 19-41 [facility] Blood monocytes/100 leukocyt esOrdered By: Dr. Abrams on 03-27-2022 Monocytes/100 WBC (Bld) 3.4 % 0-10 [facility] Blood platelet mean volumeOr dered By: Dr. Abrams on 03-27-2022 Platelet mean volume (Bld) [Entitic vol] 9.6 fL 6.2-12.0 [facility] Determination of erythrocyte mean corpuscular volume (MCV)Ordered By: Dr. Abrams on 03-27-2022 MCV (RBC) [Entitic vol] 82.9 fL 81-99 [facility] Hematocrit Auto (Bld) [Volum e fraction]Ordered By: Dr. Abrams on 03-27-2022 Hematocrit (Bld) [Volume fraction] 49.3 % 37-47 [facility] Laboratory - Chemistry and C hemistry - challengeOrdered By: Dr. Abrams on 03-27-2022 ALP [Catalytic activity/Vol] 152 U/L 45-117 [facility] ALT [Catalytic activity/Vol] 22 U/L 13-56 [facility] CO2 [Moles/Vol] 31.0 mmol/L 21.0-32.0 [facility] Globulin (S) [Mass/Vol] 4.2 g/dL 2.2-4.2 [facility] Lipase [Catalytic activity/Vol] 113 U/L 73-393 [facility] Urea nitrogen/Creatinine [Mass ratio] 14.1 mg/mg 10-20 [facility] Laboratory - Hematology and Cell countsOrdered By: Dr. Abrams on 03-27-2022 Erythrocyte distribution width (RBC) [Entitic vol] 38.0 fL 35.1-43.9 [facility] Erythrocyte distribution width (RBC) [Ratio] 12.7 % 11.6-14.6 [facility] Immature granulocytes/100 WBC (Bld) 0.400 % 0.0-0.9 [facility] Comment on above: IG% - Immature Granu locytes (promyelocytes, myelocytes and metamyelocytes) > 1% indicates that a LEFT SHIFT is Present. MCH (RBC) [Entitic mass] 27.9 pg 27.0-32.0 [facility] Nucleated RBC/100 WBC (Bld) [Ratio] 0 % 0-5 [facility] MCHC Auto (RBC) [Mass/Vol]Or dered By: Dr. Abrams on 03-27-2022 MCHC (RBC) [Mass/Vol] 33.7 g/dL 32-36 [facility] No Panel InformationOrdered By: Dr. Abrams on 03-27-2022 Estimated Creatinine Clearance Calc 77.00 ml/min [facility] Estimated GFR (MDRD) Amer 91 mL/min >60 [facility] Comment on above: GFR Calc Estimated GFR (MDRD) Non-Af Amer 75 mL/min >60 [facility] Comment on above: Non- GFR Calc Platelets bldOrdered By: Dr. Abrams on 03-27-2022 Platelets (Bld) [#/Vol] 251 10*3/uL 150-450 [facility] Serum or plasma albumin xiomara urement (mass/volume)Ordered By: Dr. Abrams on 03-27-2022 Albumin [Mass/Vol] 3.1 g/dL 3.2-5.0 [facility] Serum or plasma albumin/glob ulin mass ratioOrdered By: Dr. Abrams on 03-27-2022 Albumin/Globulin [Mass ratio] 0.7 {ratio} 0.9-2.4 [facility] Serum or plasma calcium xiomara urement (mass/volume)Ordered By: Dr. Abrams on 03-27-2022 Calcium [Mass/Vol] 9.5 mg/dL 8.5-10.1 [facility] Serum or plasma creatinine m easurement (mass/volume)Ordered By: Dr. Abrams on 03-27-2022 Creatinine [Mass/Vol] 0.85 mg/dL 0.55-1.02 [facility] Comment on above: The validity of the calculated GFR & GFRAA in patients over 70 years has not been determined. Clinical correlation is essential. Serum or plasma urea nitroge n measurement (mass/volume)Ordered By: Dr. Abrams on 03-27-2022 Urea nitrogen [Mass/Vol] 12 mg/dL 7-18 [facility] Thin prep Papanicolaou smear with manual screeningOrdered By: Dr. Abrams on 03-27-2022 Thin prep Papanicolaou smear with manual screening 17 U/L 15-37 [facility] Thin prep Papanicolaou smear with manual screening 6 5-15 [facility] ABDOMEN AP VIEWon 08-13-2021 ABDOMEN AP VIEW Patient Name: TRENTON JACKSON STUDY: ABDOMEN AP VIEW INDICATION: constipation . COMPARISON: Abdomen radiograph dated 09/22/2019. ACCESSION NUMBER(S): [id number] ORDERING CLINICIAN: ALEX TAPIA FINDINGS: Single AP portable supine radiograph was performed. Bowel gas pattern is nonobstructive. Moderate to large volume stool is noted throughout the colon and rectum. Metallic clips project over the right hemipelvis likely related to prior surgery. There is a radiopaque density projecting over the left iliac wing which was seen on prior radiograph dating back to 2019 and is indeterminate. Mild degenerative changes of the lumbar spine are noted. No acute osseous findings. IMPRESSION: 1. Nonobstructive bowel gas pattern. 2. Moderate to large volume stool throughout the colon and rectum suggestive of constipation. 3. Other findings as described above. Electronically signed by: STEW CUENCA MD [facility] ANKLE, COMPLETE, MIN 3 VIEWS on 08-13-2021 ANKLE, COMPLETE, MIN 3 VIEWS Patient Name: TRENTON JACKSON STUDY: Left ankle, 3 views. INDICATION: sudden onset pain . COMPARISON: None ACCESSION NUMBER(S): [id number] ORDERING CLINICIAN: ALEX TAPIA FINDINGS: Bones demonstrate diffuse demineralization limiting evaluation for subtle nondisplaced fractures. Within this limitation, there is subtle cortical irregularity along the lateral talar process (annotated on the AP view) is equivocal for nondisplaced fracture. Otherwise no additional displaced fracture deformities are noted. Mild midfoot degenerative changes are noted. Prominent plantar calcaneal enthesophyte is noted. There is diffuse soft tissue swelling throughout the visualized left lower extremity extending proximally to the leg. Diffuse vascular calcifications are noted. IMPRESSION: 1. Diffuse osseous demineralization limiting evaluation for subtle nondisplaced fractures. 2. Equivocal nondisplaced fracture of the lateral talar process within limits of evaluation. Recommend correlation with point tenderness and history of trauma. 3. Diffuse soft tissue swelling about the ankle and throughout the visualized lower extremity is nonspecific and could be reactive versus cellulitis versus venous stasis. Electronically signed by: STEW CUENCA MD Normal [facility] BASIC METABOLIC PANELon - Anion gap [Moles/Vol] 10 mmol/L Normal 10 - 20 [facility] Comment on above: Performed By: #### B MP #### [address] [address] Calcium [Mass/Vol] 8.9 mg/dL Normal 8.6 - 10.3 [facility] Comment on above: Performed By: #### B MP #### [address] [address] Chloride [Moles/Vol] 97 mmol/L Low 98 - 107 [facility] Comment on above: Performed By: #### B MP #### [address] [address] Creatinine [Mass/Vol] 0.61 mg/dL Normal 0.50 - 1.05 [facility] Comment on above: Performed By: #### B MP #### [address] [address] eGFR FEMALE >90 Normal >90 [facility] Comment on above: Result Comment: CALC ULATIONS OF ESTIMATED GFR ARE PERFORMED USING THE 2020 CKD-EPI STUDY REFIT EQUATION WITHOUT THE RACE VARIABLE FOR THE IDMS-TRACEABLE CREATININE METHODS. https://jasn.asnjournals.org/content/early//ASN.2020 379335 Performed By: #### B MP #### [address] [address] Glucose [Mass/Vol] 395 mg/dL High 74 - 99 [facility] Comment on above: Performed By: #### B MP #### [address] [address] HCO3 (Bld) [Moles/Vol] 28 mmol/L Normal 21 - 32 [facility] Comment on above: Performed By: #### B MP #### [address] [address] Potassium [Moles/Vol] 4.0 mmol/L Normal 3.5 - 5.3 [facility] Comment on above: Performed By: #### B MP #### [address] [address] Sodium [Moles/Vol] 131 mmol/L Low 136 - 145 [facility] Comment on above: Performed By: #### B MP #### [address] [address] Urea nitrogen [Mass/Vol] 10 mg/dL Normal 6 - 23 [facility] Comment on above: Performed By: #### B MP #### [address] [address] BETA-HYDROXYBUTYRATEon 08-13 BETA-HYDROXYBUTYRATE 0.20 mmol/L Normal 0.02 - 0.27 [facility] Comment on above: Result Comment: The beta-hydroxybutyrate test performance characteristics have been validated by [facility] laboratory. This test has not been approved by the FDA; however, such approval is not necessary. Performed By: #### B HB2 #### [address] [address] CBC AND DIFFERENTIALon 08-13 Basophils (Bld) [#/Vol] 0.10 10*3/uL Normal 0.00 - 0.10 [facility] Comment on above: Performed By: #### C BCDF #### [address] [address] Basophils/100 WBC (Bld) 0.8 % Normal 0.0 - 2.[address] [facility] Comment on above: Performed By: #### C BCDF #### [address] [address] Eosinophils (Bld) [#/Vol] 0.20 10*3/uL Normal 0.00 - 0.70 [facility] Comment on above: Performed By: #### C BCDF #### [address] [address] Eosinophils/100 WBC (Bld) 2.1 % Normal 0.0 - 6.0 [facility] Comment on above: Performed By: #### C BCDF #### [address] [address] Erythrocyte distribution width (RBC) [Ratio] 13.0 % Normal 11.5 - 14.5 [facility] Comment on above: Performed By: #### C BCDF #### [address] [address] Hematocrit (Bld) [Volume fraction] 43.3 % Normal 36.0 - 46.0 [facility] Comment on above: Performed By: #### C BCDF #### [address] [address] Hemoglobin (Bld) [Mass/Vol] 14.3 g/dL Normal 12.0 - 16.0 [facility] Comment on above: Performed By: #### C BCDF #### [place] [id number] Lymphocytes (Bld) [#/Vol] 1.30 10*3/uL Normal 1.20 - 4.80 [facility] Comment on above: Performed By: #### C BCDF #### [address] [address] Lymphocytes/100 WBC (Bld) 12.0 % Normal 13.0 - 44.0 [facility] Comment on above: Performed By: #### C BCDF #### [address] [address] MCHC (RBC) [Mass/Vol] 33.1 g/dL Normal 32.0 - 36.0 [facility] Comment on above: Performed By: #### C BCDF #### [address] [address] MCV (RBC) [Entitic vol] 83 fL Normal 80 - [address] [facility] Comment on above: Performed By: #### C BCDF #### [address] [address] Monocytes (Bld) [#/Vol] 0.60 10*3/uL Normal 0.10 - 1.00 [facility] Comment on above: Performed By: #### C BCDF #### [address] [address] Monocytes/100 WBC (Bld) 5.6 % Normal 2.0 - 10.[address] [facility] Comment on above: Performed By: #### C BCDF #### [address] [address] Neutrophils (Bld) [#/Vol] 8.70 10*3/uL High 1.20 - 7.70 [facility] Comment on above: Result Comment: Perc ent differential counts (%) should be interpreted in the context of the absolute cell counts (cells/L). Performed By: #### C BCDF #### [address] [address] Neutrophils/100 WBC (Bld) 79.5 % Normal 40.0 - 80.0 [facility] Comment on above: Performed By: #### C BCDF #### [address] [address] NUCLEATED RBC 0.1 /100 WBC Normal [facility] Comment on above: Performed By: #### C BCDF #### [address] [address] Platelets (Bld) [#/Vol] 276 10*3/uL Normal 150 - 450 [facility] Comment on above: Performed By: #### C BCDF #### [address] [address] RBC 5.22 x10E12/L High 4.00 - 5.20 [facility] Comment on above: Performed By: #### C BCDF #### [address] [address] WBC (Bld) [#/Vol] 10.9 10*3/uL Normal 4.4 - 11.3 [facility] Comment on above: Performed By: #### C BCDF #### [address] [address] LACTATEon 08-13-2021 Lactate [Moles/Vol] 1.2 mmol/L Normal 0.4 - 2.0 [facility] Comment on above: Result Comment: Marisol puncture immediately after or during the administration of Metamizole may lead to falsely low results. Testing should be performed immediately prior to Metamizole dosing. Performed By: #### L ACT #### [place] [id number] [place] [address] Provider Note - ED v3on 08-02 Provider Note - ED v3 Provider Note: Chart Review: ED NOTES ED NOTES: HPI: Patient presents ER today complaining of nausea constipation and left ankle and leg pain. She states that the pain has been going on for several weeks. Denies any strain or trauma. In review of previous notes patient was seen most recently at [place] emergency department on August 09 and at that time they noted that this was her third visit for the same complaint. She did have a negative DVT study done August 08. Patient states that she was admitted overnight on one of her visits for an elevated blood sugar of 700. She is insulin-dependent diabetic. She states her sugars are not well controlled. She did have all of her left toes amputated about 2 years ago related to a wound between her toes. ROS: All systems are negative other than as noted in HPI. Physical Exam I have reviewed the triage vital signs. Const: Well nourished, well developed, appears stated age, moderate distress Eyes: PERRL, EOM intact, no conjunctival injection, vision grossly normal HENT: Neck supple without meningismus , Moist mucous membranes, no pharyengeal swelling or exudate CV: Regular rate and rhythm, Warm, well-perfused extremities. Chest non tender RESP: Lungs clear bilaterally, Unlabored respiratory effort GI: soft, non-tender, non-distended, no masses : MSK: Complete amputation of all left toes. Well-healed incision. Marked tenderness of the left lower leg and foot. Back: Non tender, no pain with ROM Skin: Warm, dry. No rashes, extremely mild erythema of the left lower leg Neuro: Alert and oriented x4, GCS 15 , quantitative research analyst II-XII grossly intact. Sensation and motor function of extremities grossly intact. Psych: Appropriate mood and affect. I have reviewed and confirmed nurses/medics notes for patient past, social and family history. Portions of this note were dictated by speech recognition. An attempt at proof reading was made to minimize errors. Minor errors in labor standards director may be present. HISTORY OF PRESENTING ILLNESS TRENTON is a 50 year old Female and was seen by me at 13-Aug-2021 10:28 for a chief complaint of foot pain (Pt had toes amputated 2 years ago. Pt developed swelling and 10/10 pain for the past 2 weeks. Pt complains of nausea and constipation)(1). Triage Information: Most recent Vital Sign Value Date Temp (F): 97.6 08-13-2021 10:41 Temp (C): 36.4 08-13-2021 10:41 Heart Rate (beats/min): 72 08-13-2021 10:41 Respirations (breaths/min): 19 08-13-2021 10:41 SpO2 (%): 99 08-13-2021 10:41 BP Systolic (mm Hg): 134 08-13-2021 10:41 BP Diastolic (mm Hg): 98 08-13-2021 10:41 PAST MEDICAL HISTORY ALLERGIES/INTOLERANCES: Allergy Allergen: NKDA Type: Reaction: Allergen: Latex Type: Latex Reaction: Unknown HEALTH HISTORY: No documented data. OUTPATIENT MEDICATIONS: Home Medications Review Status for Reconciliation: N/A Med Status: Patient Currently Takes Medications Drug Name: gabapentin 300 mg oral capsule Instructions: 1 cap(s) orally 3 times a day for diabetic neuropathy pain Drug Name: busPIRone 5 mg oral tablet Instructions: 1 tab(s) orally every 8 hours Drug Name: nicotine 7 mg/24 hr transdermal film, extended release Instructions: 1 patch transdermal every 24 hours Drug Name: Colace 100 mg oral capsule Instructions: 1 cap(s) orally 2 times a day - may decrease dose to once daily if stools become loose Drug Name: Metoprolol Succinate ER 25 mg oral tablet, extended release Instructions: 1 tab(s) orally once a day (at bedtime) Drug Name: acetaminophen 325 mg oral tablet Instructions: 2 tab(s) orally every 4 hours, As needed, Pain - Mild (1-3) Drug Name: insulin glargine 100 units/mL subcutaneous solution Instructions: 40 unit(s) subcutaneous once (at bedtime) Drug Name: insulin lispro 100 units/mL injectable solution Instructions: Use House sliding scale per PCP Drug Name: LORazepam 0.5 mg oral tablet Instructions: 1 tab(s) orally every 6 hours, As needed, acute anxiety DX: F41.1 Drug Name: lisinopril 5 mg oral tablet Instructions: 1 tab(s) orally once a day Drug Name: Aldactone 25 mg oral tablet Instructions: 0.5 tab(s) orally 2 times a day Drug Name: Xarelto 20 mg oral tablet Instructions: 1 tab(s) orally once a day Drug Name: Protonix 40 mg oral delayed release tablet Instructions: 1 tab(s) orally once a day Drug Name: Carafate 1 g oral tablet Instructions: 1 tab(s) orally 3 times a day Drug Name: atorvastatin 80 mg oral tablet Instructions: 1 tab(s) orally once a day Drug Name: aspirin 81 mg oral tablet, chewable Instructions: 1 tab(s) orally once a day Drug Name: diclofenac 1% topical gel Instructions: topically Drug Name: Lasix 20 mg oral tablet Instructions: 1 tab(s) orally once a day, As Needed for weight gain > 2kg in 24 hours. If weight still increasing, can take up to 2 tablets a day. Drug Name: (more content not included)... Normal [facility] Triage - EDon 08-13-2021 Triage - ED Quick Triage: Are You no Have You Given In The Last 6 Weeksno Are You Currently Breastfeedingno Chart Review: ARRIVAL INFORMATION Mode of Arrival: private vehicle CHIEF COMPLAINT TRENTON JACKSON is a Female patient with a chief complaint of foot pain (Pt had toes amputated 2 years ago. Pt developed swelling and 10/10 pain for the past 2 weeks. Pt complains of nausea and constipation). Onset of the Complaint: 30-Jul-2021 Triage Date/Time: 13-Aug-2021 10:41 JOELLE: 3 Pain Rating (0-10): 10 = Severe Vital Signs: Temperature: 97.6F ( 36.4C) taken temporal Blood Pressure: 134/98 Mean: Heart Rate: 72 Respiratory Rate: 19 Pulse Oximetry: 99% on room air, no respiratory support. Kanwal Coma Scale: Best Eye Response: (E4) spontaneous Best Motor Response: (M6) obeys commands Best Verbal Response: (V5) oriented Kanwal Score: 15 Allergies: no Mask applied: yes Patient has homicidal thoughts: no Risk Screens Suicide Risk Screen In the Past Month: Have you wished you were or wished you could go to sleep and not wake up no In the Past Month: Have you had any actual thoughts of killing yourself no In Your Lifetime: Have you ever done anything, started to do anything, or prepared to do anything to end your life no Sun Fall Scale Screening Has the patient fallen before (or is the patient in the ED as a result of a fall) has not had a fall Does the patient have an impaired gait does not have impaired gait Is the patient cognitively impaired not cognitively impaired Interventions: Sun Fall Interventions: LOW INTERVENTIONS: *patient oriented to surroundings and call system, * patient/family falls education completed and documented, *patients fall status communicated during bedside handoff, *whiteboard updated, *mode of toileting discussed with patient, *bed in low position with brakes locked, *call light in reach, * non-skid footwear TRAVEL HISTORY Travel History Coronavirus Screening: no exposure or symptoms Travel Exposure History: NO travel to International locations in the past 30 days PAIN Pain Scale Used: JUSTIN Pain Rating (0-10): 10 = Severe Past Medical History: Past Medical History Reviewedyes Electronic Signatures: Reinaldo Lizarraga (EMT-P) (Signed 13-Aug-2021 10:44) Entered: Risk Screens, Pain, Travel History, Chart Review, Scores, Past Medical History Authored: Quick Triage, Risk Screens, Pain, Travel History, Chart Review, Scores, Past Medical History Dayanara Hoyos (RN) (Signed 13-Aug-2021 10:49) Authored: Quick Triage, Chart Review Last Updated: 13-Aug-2021 10:49 by Dayanara Hoyos (RN) Normal [facility] VENOUS BLOOD GASon 2 BASE EXCESS-BLOOD 7.5 mmol/L High -2.0 - 3.0 [facility] Comment on above: Performed By: #### B LGV1 #### [place] [address] BICARB, CALCULATED 32.7 mmol/L High 22.0 - 26.0 [facility] Comment on above: Performed By: #### B LGV1 #### [place] [address] FIO2 21 % Normal [facility] Comment on above: Performed By: #### B LGV1 #### [address] [address] Oxygen (Bld) [Partial pressure] 20 mm[Hg] Low 35 - 45 [facility] Comment on above: Performed By: #### B LGV1 #### [address] [address] PCO2 47 mmHg Normal 41 - 51 [facility] Comment on above: Performed By: #### B LGV1 #### [address] [address] pH (Bld) 7.45 [pH] High 7.33 - 7.43 [facility] Comment on above: Performed By: #### B LGV1 #### [place] [id number] SO2 42 % Low 45 - 75 [facility] Comment on above: Performed By: #### B LGV1 #### [place] [id number] CBCon 10-01-2019 Erythrocyte distribution width (RBC) [Ratio] Canceled Normal [facility] Comment on above: Order Comment: TEST CBC WAS CANCELLED, 10/01/2019 02:09 ?Cancel Reason: Patient Discharged. Performed By: #### C OAGS #### [facility] [address] [place] [address] Hematocrit (Bld) [Volume fraction] Canceled Normal [facility] Comment on above: Order Comment: TEST CBC WAS CANCELLED, 10/01/2019 02:09 ?Cancel Reason: Patient Discharged. Performed By: #### C OAGS #### [facility] [address] [place] [address] Hemoglobin (Bld) [Mass/Vol] Canceled Normal [facility] Comment on above: Order Comment: TEST CBC WAS CANCELLED, 10/01/2019 02:09 ?Cancel Reason: Patient Discharged. Performed By: #### C OAGS #### [facility] [address] [place] [address] MCHC (RBC) [Mass/Vol] Canceled Normal [facility] Comment on above: Order Comment: TEST CBC WAS CANCELLED, 10/01/2019 02:09 ?Cancel Reason: Patient Discharged. Performed By: #### C OAGS #### [facility] [address] [place] [address] MCV (RBC) [Entitic vol] Canceled Normal [facility] Comment on above: Order Comment: TEST CBC WAS CANCELLED, 10/01/2019 02:09 ?Cancel Reason: Patient Discharged. Performed By: #### C OAGS #### [facility] [address] [place] [address] Nucleated RBC/100 WBC (Bld) [Ratio] Canceled Normal [facility] Comment on above: Order Comment: TEST CBC WAS CANCELLED, 10/01/2019 02:09 ?Cancel Reason: Patient Discharged. Performed By: #### C OAGS #### [facility] [address] [place] [address] Platelets (Bld) [#/Vol] Canceled Normal [facility] Comment on above: Order Comment: TEST CBC WAS CANCELLED, 10/01/2019 02:09 ?Cancel Reason: Patient Discharged. Performed By: #### C OAGS #### [facility] [address] [place] [address] RBC (Bld) [#/Vol] Canceled Normal [facility] Comment on above: Order Comment: TEST CBC WAS CANCELLED, 10/01/2019 02:09 ?Cancel Reason: Patient Discharged. Performed By: #### C OAGS #### [facility] [address] [place] [address] WBC (Bld) [#/Vol] Canceled Normal [facility] Comment on above: Order Comment: TEST CBC WAS CANCELLED, 10/01/2019 02:09 ?Cancel Reason: Patient Discharged. Performed By: #### C OAGS #### [facility] [address] [place] [address] RENAL FUNCTION PANELon 09-30 Albumin [Mass/Vol] Canceled Normal [facility] Comment on above: Order Comment: TEST RENAL FUNCTION PANEL WAS CANCELLED, 10/01/2019 02:09 ?Cancel Reason:Patient Discharged. Performed By: #### C OAGS #### [facility] [address] [place] [address] Anion gap [Moles/Vol] Canceled Normal [facility] Comment on above: Order Comment: TEST RENAL FUNCTION PANEL WAS CANCELLED, 10/01/2019 02:09 ?Cancel Reason:Patient Discharged. Performed By: #### C OAGS #### [facility] [address] [place] [address] Calcium [Mass/Vol] Canceled Normal [facility] Comment on above: Order Comment: TEST RENAL FUNCTION PANEL WAS CANCELLED, 10/01/2019 02:09 ?Cancel Reason:Patient Discharged. Performed By: #### C OAGS #### [facility] [address] [place] [address] Chloride [Moles/Vol] Canceled Normal [facility] Comment on above: Order Comment: TEST RENAL FUNCTION PANEL WAS CANCELLED, 10/01/2019 02:09 ?Cancel Reason:Patient Discharged. Performed By: #### C OAGS #### [facility] [address] [place] [address] Creatinine [Mass/Vol] Canceled Normal [facility] Comment on above: Order Comment: TEST RENAL FUNCTION PANEL WAS CANCELLED, 10/01/2019 02:09 ?Cancel Reason:Patient Discharged. Performed By: #### C OAGS #### [facility] [address] [place] [address] GFR- AM. Canceled Normal [facility] Comment on above: Order Comment: TEST RENAL FUNCTION PANEL WAS CANCELLED, 10/01/2019 02:09 ?Cancel Reason:Patient Discharged. Result Comment: CALC ULATIONS OF ESTIMATED GFR ARE PERFORMED USING THE MDRD STUDY EQUATION FOR THE IDMS-TRACEABLE CREATININE METHODS. CLIN CHEM 2007;53:766-72 Performed By: #### C OAGS #### [facility] [address] [place] [address] GFR-NON AM. Canceled Normal [facility] Comment on above: Order Comment: TEST RENAL FUNCTION PANEL WAS CANCELLED, 10/01/2019 02:09 ?Cancel Reason:Patient Discharged. Performed By: #### C OAGS #### [facility] [address] [place] [address] Glucose [Mass/Vol] Canceled Normal [facility] Comment on above: Order Comment: TEST RENAL FUNCTION PANEL WAS CANCELLED, 10/01/2019 02:09 ?Cancel Reason:Patient Discharged. Performed By: #### C OAGS #### [facility] [address] [place] [address] HCO3 (Bld) [Moles/Vol] Canceled Normal [facility] Comment on above: Order Comment: TEST RENAL FUNCTION PANEL WAS CANCELLED, 10/01/2019 02:09 ?Cancel Reason:Patient Discharged. Performed By: #### C OAGS #### [facility] [address] [place] [address] Phosphate [Mass/Vol] Canceled Normal [facility] Comment on above: Order Comment: TEST RENAL FUNCTION PANEL WAS CANCELLED, 10/01/2019 02:09 ?Cancel Reason:Patient Discharged. Result Comment: The performance characteristics of phosphorus testing in heparinized plasma have been validated by the individual laboratory site where testing is performed. Testing on heparinized plasma is not approved by the FDA; however, such approval is not necessary. Performed By: #### C OAGS #### [facility] [address] [place] [address] Potassium [Moles/Vol] Canceled Normal [facility] Comment on above: Order Comment: TEST RENAL FUNCTION PANEL WAS CANCELLED, 10/01/2019 02:09 ?Cancel Reason:Patient Discharged. Performed By: #### C OAGS #### [facility] [address] [place] [address] Sodium [Moles/Vol] Canceled Normal [facility] Comment on above: Order Comment: TEST RENAL FUNCTION PANEL WAS CANCELLED, 10/01/2019 02:09 ?Cancel Reason:Patient Discharged. Performed By: #### C OAGS #### [facility] [address] [place] [address] Urea nitrogen [Mass/Vol] Canceled Normal [facility] Comment on above: Order Comment: TEST RENAL FUNCTION PANEL WAS CANCELLED, 10/01/2019 02:09 ?Cancel Reason:Patient Discharged. Performed By: #### C OAGS #### [facility] [address] [place] [address] C-REACTIVE PROTEINon 020 CRP [Mass/Vol] 0.99 mg/dL Normal [facility] Comment on above: Result Comment: REF VALUE < 1.00 Performed By: #### C OAGS #### [facility] [address] [place] [address] CRP [Mass/Vol] 1.13 mg/dL Abnormal [facility] Comment on above: Result Comment: REF VALUE < 1.00 Performed By: #### C RP #### [facility] [address] [place] [address] CBC AND DIFFERENTIALon 09-29 % AUTOMATED IMMATURE GRAN 0.6 % Normal 0.0 - 0.9 [facility] Comment on above: Result Comment: Vaishali ture Granulocyte Count (IG) includes promyelocytes, myelocytes and metamyelocytes but does not include bands. Percent differential counts (%) should be interpreted in the context of the absolute cell counts (cells/L). Performed By: #### C BCDF #### [facility] [address] [place] [address] Basophils (Bld) [#/Vol] 0.06 10*3/uL Normal 0.00 - 0.10 [facility] Comment on above: Performed By: #### C BCDF #### [facility] [address] [place] [address] Basophils/100 WBC (Bld) 0.8 % Normal 0.0 - 2.0 [facility] Comment on above: Performed By: #### C BCDF #### [facility] [address] [place] [address] Eosinophils (Bld) [#/Vol] 0.15 10*3/uL Normal 0.00 - 0.70 [facility] Comment on above: Performed By: #### C BCDF #### [facility] [address] [place] [address] Eosinophils/100 WBC (Bld) 1.9 % Normal 0.0 - 6.0 [facility] Comment on above: Performed By: #### C BCDF #### [facility] [address] [place] [address] Erythrocyte distribution width (RBC) [Ratio] 14.3 % Normal 11.5 - 14.5 [facility] Comment on above: Performed By: #### C BCDF #### [facility] [address] [place] [address] Hematocrit (Bld) [Volume fraction] 39.8 % Normal 36.0 - 46.0 [facility] Comment on above: Performed By: #### C BCDF #### [facility] [address] [place] [address] Hemoglobin (Bld) [Mass/Vol] 12.9 g/dL Normal 12.0 - 16.0 [facility] Comment on above: Performed By: #### C BCDF #### [facility] [address] [place] [address] Lymphocytes (Bld) [#/Vol] 2.21 10*3/uL Normal 1.20 - 4.80 [facility] Comment on above: Performed By: #### C BCDF #### [facility] [address] [place] [address] Lymphocytes/100 WBC (Bld) 28.1 % Normal 13.0 - 44.0 [facility] Comment on above: Performed By: #### C BCDF #### [facility] [address] [place] [address] MCHC (RBC) [Mass/Vol] 32.4 g/dL Normal 32.0 - 36.0 [facility] Comment on above: Performed By: #### C BCDF #### [facility] [address] [place] [address] MCV (RBC) [Entitic vol] 85 fL Normal 80 - 100 [facility] Comment on above: Performed By: #### C BCDF #### [facility] [address] [place] [address] Monocytes (Bld) [#/Vol] 0.79 10*3/uL Normal 0.10 - 1.00 [facility] Comment on above: Performed By: #### C BCDF #### [facility] [address] [place] [address] Monocytes/100 WBC (Bld) 10.0 % Normal 2.0 - 10.0 [facility] Comment on above: Performed By: #### C BCDF #### [facility] [address] [place] [address] Neutrophils (Bld) [#/Vol] 4.61 10*3/uL Normal 1.20 - 7.70 [facility] Comment on above: Performed By: #### C BCDF #### [facility] [address] [place] [address] Neutrophils/100 WBC (Bld) 58.6 % Normal 40.0 - 80.0 [facility] Comment on above: Performed By: #### C BCDF #### [facility] [address] [place] [address] Nucleated RBC/100 WBC (Bld) [Ratio] 0.0 /100 WBC Normal 0.0-0.0 [facility] Comment on above: Performed By: #### C BCDF #### [facility] [address] [place] [address] Platelets (Bld) [#/Vol] 239 10*3/uL Normal 150 - 450 [facility] Comment on above: Performed By: #### C BCDF #### [facility] [address] [place] [address] RBC (Bld) [#/Vol] 4.70 x10E12/L Normal 4.00 - 5.20 [facility] Comment on above: Performed By: #### C BCDF #### [facility] [address] [place] [address] WBC (Bld) [#/Vol] 7.9 10*3/uL Normal 4.4 - 11.3 [facility] Comment on above: Performed By: #### C BCDF #### [facility] [address] [place] [address] % AUTOMATED IMMATURE GRAN 0.5 % Normal 0.0 - 0.9 [facility] Comment on above: Result Comment: Vaishali ture Granulocyte Count (IG) includes promyelocytes, myelocytes and metamyelocytes but does not include bands. Percent differential counts (%) should be interpreted in the context of the absolute cell counts (cells/L). Performed By: #### C BCDF #### [facility] [address] [place] [address] Basophils (Bld) [#/Vol] 0.06 10*3/uL Normal 0.00 - 0.10 [facility] Comment on above: Performed By: #### C BCDF #### [facility] [address] [place] [address] Basophils/100 WBC (Bld) 0.6 % Normal 0.0 - 2.0 [facility] Comment on above: Performed By: #### C BCDF #### [facility] [address] [place] [address] Eosinophils (Bld) [#/Vol] 0.11 10*3/uL Normal 0.00 - 0.70 [facility] Comment on above: Performed By: #### C BCDF #### [facility] [address] [place] [address] Eosinophils/100 WBC (Bld) 1.1 % Normal 0.0 - 6.0 [facility] Comment on above: Performed By: #### C BCDF #### [facility] [address] [place] [address] Erythrocyte distribution width (RBC) [Ratio] 14.3 % Normal 11.5 - 14.5 [facility] Comment on above: Performed By: #### C BCDF #### [facility] [address] [place] [address] Hematocrit (Bld) [Volume fraction] 39.7 % Normal 36.0 - 46.0 [facility] Comment on above: Performed By: #### C BCDF #### [facility] [address] [place] [address] Hemoglobin (Bld) [Mass/Vol] 12.9 g/dL Normal 12.0 - 16.0 [facility] Comment on above: Performed By: #### C BCDF #### [facility] [address] [place] [address] Lymphocytes (Bld) [#/Vol] 3.06 10*3/uL Normal 1.20 - 4.80 [facility] Comment on above: Performed By: #### C BCDF #### [facility] [address] [place] [address] Lymphocytes/100 WBC (Bld) 30.5 % Normal 13.0 - 44.0 [facility] Comment on above: Performed By: #### C BCDF #### [facility] [address] [place] [address] MCHC (RBC) [Mass/Vol] 32.5 g/dL Normal 32.0 - 36.0 [facility] Comment on above: Performed By: #### C BCDF #### [facility] [address] [place] [address] MCV (RBC) [Entitic vol] 84 fL Normal 80 - 100 [facility] Comment on above: Performed By: #### C BCDF #### [facility] [address] [place] [address] Monocytes (Bld) [#/Vol] 0.96 10*3/uL Normal 0.10 - 1.00 [facility] Comment on above: Performed By: #### C BCDF #### [facility] [address] [place] [address] Monocytes/100 WBC (Bld) 9.6 % Normal 2.0 - 10.0 [facility] Comment on above: Performed By: #### C BCDF #### [facility] [address] [place] [address] Neutrophils (Bld) [#/Vol] 5.78 10*3/uL Normal 1.20 - 7.70 [facility] Comment on above: Performed By: #### C BCDF #### [facility] [address] [place] [address] Neutrophils/100 WBC (Bld) 57.7 % Normal 40.0 - 80.0 [facility] Comment on above: Performed By: #### C BCDF #### [facility] [address] [place] [address] Nucleated RBC/100 WBC (Bld) [Ratio] 0.0 /100 WBC Normal 0.0-0.0 [facility] Comment on above: Performed By: #### C BCDF #### [facility] [address] [place] [address] Platelets (Bld) [#/Vol] 250 10*3/uL Normal 150 - 450 [facility] Comment on above: Performed By: #### C BCDF #### [facility] [address] [place] [address] RBC (Bld) [#/Vol] 4.71 x10E12/L Normal 4.00 - 5.20 [facility] Comment on above: Performed By: #### C BCDF #### [facility] [address] [place] [address] WBC (Bld) [#/Vol] 10.0 10*3/uL Normal 4.4 - 11.3 [facility] Comment on above: Performed By: #### C BCDF #### [facility] [address] [place] [address] COAGULATION SCREENon 020 aPTT Coag (Bld) [Time] 33 s Normal 28 - 38 [facility] Comment on above: Result Comment: THE APTT IS NO LONGER USED FOR MONITORING UNFRACTIONATED HEPARIN THERAPY. FOR MONITORING HEPARIN THERAPY, USE THE HEPARIN ASSAY. Performed By: #### C OAGS #### [facility] [address] [place] [address] INR Coag (PPP) [Relative time] 1.2 {INR} High 0.9 - 1.1 [facility] Comment on above: Performed By: #### C OAGS #### [facility] [address] [place] [address] PT Coag (PPP) [Time] 13.5 s High 9.7 - 12.7 [facility] Comment on above: Performed By: #### C OAGS #### [facility] [address] [place] [address] aPTT Coag (Bld) [Time] 41 s High 28 - 38 [facility] Comment on above: Result Comment: THE APTT IS NO LONGER USED FOR MONITORING UNFRACTIONATED HEPARIN THERAPY. FOR MONITORING HEPARIN THERAPY, USE THE HEPARIN ASSAY. Performed By: #### C OAGS #### [facility] [address] [place] [address] INR Coag (PPP) [Relative time] 2.0 {INR} High 0.9 - 1.1 [facility] Comment on above: Performed By: #### C OAGS #### [facility] [address] [place] [address] PT Coag (PPP) [Time] 22.4 s High 9.7 - 12.7 [facility] Comment on above: Performed By: #### C OAGS #### [facility] [address] [place] [address] COMPREHENSIVE PANELon 2019 Albumin [Mass/Vol] 3.6 g/dL Normal 3.4 - 5.0 [facility] Comment on above: Performed By: #### C MP #### [facility] [address] [place] [address] ALP [Catalytic activity/Vol] 82 U/L Normal 33 - 110 [facility] Comment on above: Performed By: #### C MP #### [facility] [address] [place] [address] ALT [Catalytic activity/Vol] 15 U/L Normal 7 - 45 [facility] Comment on above: Result Comment: Cecily ents treated with Sulfasalazine may generate falsely decreased results for ALT. Performed By: #### C MP #### [facility] [address] [place] [address] Anion gap [Moles/Vol] 16 mmol/L Normal 10 - 20 [facility] Comment on above: Performed By: #### C MP #### [facility] [address] [place] [address] AST [Catalytic activity/Vol] 13 U/L Normal 9 - 39 [facility] Comment on above: Performed By: #### C MP #### [facility] [address] [place] [address] Bilirubin [Mass/Vol] 0.7 mg/dL Normal 0.0 - 1.2 [facility] Comment on above: Performed By: #### C MP #### [facility] [address] [place] [address] Calcium [Mass/Vol] 9.2 mg/dL Normal 8.6 - 10.6 [facility] Comment on above: Performed By: #### C MP #### [facility] [address] [place] [address] Chloride [Moles/Vol] 94 mmol/L Low 98 - 107 [facility] Comment on above: Performed By: #### C MP #### [facility] [address] [place] [address] Creatinine [Mass/Vol] 1.52 mg/dL High 0.50 - 1.05 [facility] Comment on above: Performed By: #### C MP #### [facility] [address] [place] [address] GFR- AM. 44 mL/min/1.73m2 Abnormal >60 [facility] Comment on above: Result Comment: CALC ULATIONS OF ESTIMATED GFR ARE PERFORMED USING THE MDRD STUDY EQUATION FOR THE IDMS-TRACEABLE CREATININE METHODS. CLIN CHEM 2007;53:766-72 Performed By: #### C MP #### [facility] [address] [place] [address] GFR-NON AM. 36 mL/min/1.73m2 Abnormal >60 [facility] Comment on above: Performed By: #### C MP #### [facility] [address] [place] [address] Glucose [Mass/Vol] 161 mg/dL High 74 - 99 [facility] Comment on above: Performed By: #### C MP #### [facility] [address] [place] [address] HCO3 (Bld) [Moles/Vol] 30 mmol/L Normal 21 - 32 [facility] Comment on above: Performed By: #### C MP #### [facility] [address] [place] [address] Potassium [Moles/Vol] 3.7 mmol/L Normal 3.5 - 5.3 [facility] Comment on above: Performed By: #### C MP #### [facility] [address] [place] [address] Protein [Mass/Vol] 6.3 g/dL Low 6.4 - 8.2 [facility] Comment on above: Performed By: #### C MP #### [facility] [address] [place] [address] Sodium [Moles/Vol] 136 mmol/L Normal 136 - 145 [facility] Comment on above: Performed By: #### C MP #### [facility] [address] [place] [address] Urea nitrogen [Mass/Vol] 25 mg/dL High 6 - 23 [facility] Comment on above: Performed By: #### C MP #### [facility] [address] [place] [address] Daily Progress Note-Cardiolo flaco 09-30-2019 Daily Progress Note-Cardiology Service: Cardiology Subjective Data: TRENTON JACKSON is a 49 year old Female who is Hospital Day # 2. Overnight Events: Patient had an uneventful night. Additional Information: This morning, pt complaints of constant, sharp, 10/10 substernal CP radiating to the L side in a dermatomal distribution. Improves slightly with lying down, worsens with sitting up and deep breathing. Has had chickenpox as a child. Denies hx of trauma. 12point ROS reviewed and -ve except above. Objective Data: Objective Information: T PRBPSpO2 [id number]/7995% Date/Time09/29 7: 7: 7: 7: 7:46 Range(35.7C - 36.4C ) (65 - 98 ) (18 - 18 ) (65 - 120 )/ (31 - 79 ) (92% - 97% ) Pain reported at 09/29 7:48: 10 = Severe Physical Exam: Constitutional: Awake, alert x 3, comfortable on bed Eyes: PERRL, no scleral icterus ENMT: moist MM, no lesion, no oropharyngeal erythema Head/Neck: No JVD Respiratory/Thorax: CTAB, no wheezing or crackles Cardiovascular: no erythema or rash over the chest, tenderness to palpation over substernal chest and below L breast, RRR, Distant heart sounds, no murmurs appreciated Gastrointestinal: Soft, non tender, non distended Extremities: No lower limb edema, L leg in boot Neurological: No focal neurological deficits Skin: Warm and dry, no lesions, no rashes Medication: Medications: CARDIOVASCULAR AGENTS: 1. Spironolactone: 25 mg Oral Daily 2. Lisinopril: 5 mg Oral Daily CENTRAL NERVOUS SYSTEM AGENTS: 1. Acetaminophen: 975 mg Oral Every 8 Hours PRN 2. Aspirin Chewable: 81 mg Oral Daily 3. Gabapentin: 300 mg Oral 3 Times a Day 4. busPIRone (BUSPAR): 5 mg Oral Every 8 Hours COAGULATION MODIFIERS: 1. Rivaroxaban: 20 mg Oral GASTROINTESTINAL AGENTS: 1. Docusate: 100 mg Oral 2 Times a Day 2. Sucralfate: 1 gram(s) Oral 3 Times a Day Before Meals 3. Pantoprazole: 40 mg Oral Daily METABOLIC AGENTS: 1. Insulin Glargine (Lantus) Injectable: 20 unit(s) SubCutaneous Every 24 Hours 2. Insulin Lispro Mild Corrective Scale: unit(s) SubCutaneous Every 4 Hours 3. Atorvastatin: 80 mg Oral Daily 4. Dextrose 50% in Water Injectable: 25 gram(s) IntraVenous Push Every 15 Minutes PRN 5. Glucagon Injectable: 1 mg IntraMuscular Every 15 Minutes PRN MISCELLANEOUS AGENTS: 1. Nicotine 7 mg/ 24 hour TransDermal: 1 patch TransDermal Every 24 Hours TOPICAL AGENTS: 1. Diclofenac 1% Topical Gel: 2 gram(s) Topical 4 Times a Day PRN Recent Lab Results: Results: I have reviewed these laboratory results: Complete Blood Count + Differential 30-Sep-2019 07:40:00 ResultValue White Blood Cell Count 7.9 Nucleated Erythrocyte Count 0.0 Red Blood Cell Count 4.70 HGB 12.9 HCT 39.8 MCV 85 MCHC 32.4 PLT 239 RDW-CV 14.3 Neutrophil % 58.6 Immature Granulocytes % 0.6 Lymphocyte % 28.1 Monocyte % 10.0 Eosinophil % 1.9 Basophil % 0.8 Neutrophil Count 4.61 Lymphocyte Count 2.21 Monocyte Count 0.79 Eosinophil Count 0.15 Basophil Count 0.06 Coagulation Screen 30-Sep-2019 07:40:00 ResultValue Prothrombin Time, Plasma 13.5 H International Normalized Ratio, Plasma 1.2 H Activated Partial Thromboplastin Time 33 Glucose_POCT 30-Sep-2019 06:44:00 ResultValue Glucose-POCT 210 H Urinalysis 30-Sep-2019 05:59:00 ResultValue Color, Urine YELLOW Reference Range: STRAW,YELLOW Appearance, Urine CLEAR Specific [place], Urine 1.014 pH, Urine 5.0 Protein, Urine NEGATIVE Glucose, Urine NEGATIVE Blood, Urine NEGATIVE Ketones, Urine NEGATIVE Bilirubin, Urine NEGATIVE Urobilinogen, Urine <2.0 Nitrite, Urine NEGATIVE Leukocyte Esterase, Urine NEGATIVE Assessment and Plan: Assessment: 49 year old Female With a past medical history of remote CAD, HFrEF (EF 30-35%), hypertension, DM s/p L toe amputation, new provoked PE 2/2 immobility (on xarelto) who was transferred from OSH for evaluation of ischemic cardiomyopathy. Presented to OSH 2 days ago with hypoxic respiratory failure due to volume overload, resolved with IV diuresis. No ischemic changes on EKG and trops negative. Sharp, constant, substernal chest pain with radiation below L breast in a dermatomal distribution with prior hx of chickenpox makes herpes zoster likely. Differential also includes costochondritis given tenderness to palpation and acute viral pericarditis given pleuritic nature . #Pleuritic Chest Pain: -Differential: herpes zoster, costochondritis and acute viral pericarditis (improves with lying down, worsens by sitting up and breathing, no hx of fevers, chills) -No ST seg dep or elevation on EKG, normal MN intervals -Pain control: 975mg q8h as needed, diclofenac gel as needed -Will hold off on acyclovir as >72h since presentation w/o new lesions #Acute decompensated HF 2/2 ICM (now resolved): - Echo 09/23: EF 30-35%, mild to mod mitral regurg - Stress Test 2018: >20% fixed perfusion defect in LAD territory - S/P IV diuresis at OSH - Trops -ve, no ischemic changes on EKG - Her decompensation could be due to ischemia or due to her PE. Will need additional workup outpatient - Continue home aspirin, atorva, metop. Will d/c on as needed lasix - Hx of heart cath in [facility] - report not available #Provoked PE 07/06 immobility - CT chest 09/27: small PE in R interlobar branch of PA - Continue Xeralto 20mg #ROBBIE: - Most likely in the setting of overdiuresis. - Given 500cc of fluid on admission - Bladder scan and UA -ve #Constipation - KUB done showed constipation - No concern for obstruction - Given 3 packets of miralax - Will need aggressive bowel regimen - Most likely in the setting of opioid use in OSH F: 500cc NS E: K>2, Mg>4 N: cardiac diet A: PIV DVT ppx: On AC Dispo: d/c home today with outpatient cardiology f/u Full code Signature/Cosignature/Att estation: Note Completion: I am a: Resident/Fellow Attending AttestdavisI saw and evaluated the patient. I personally obtained the jones and critical portions of the history and physical exam or was physically present for jones and critical portions performed by the resident/fellow. I reviewed the resident/fellows documentation and discussed the patient with the resident/fellow. I agree with the resident/fellows medical decision making as documented in the note. I personally evaluated the patient [id number] Electronic Signatures: Quang Chris) (Signed 02-Oct-2019 14:00) Authored: Signature/Cosignature/Att estation Co-Signer: Service, Subjective Data, Objective Data, Assessment and Plan, Signature/Cosignature/Att estation Lilly Barfield (Resident)) (Signed 30-Sep-2019 10:38) Authored: Service, Subjective Data, Objective Data, Assessment and Plan, Signature/Cosignature/Att estation Last Updated: 02-Oct-2019 14:00 by Quang Chris) Normal [facility] Discharge [id number] Discharge Profile2 Discharge Orders: Anticipated Discharge Date: Anticipated Discharge [id number] Anticipated Discharge Time11:33 Problem List: Additional Dx: CHF (congestive heart failure): Catalog Name: Heart failure, unspecified Diabetes mellitus: Catalog Name: Type 2 diabetes mellitus without complications Chest pain: Onset Date: 29-Sep-2019, Catalog Name: Chest pain, unspecified Coronary artery disease: Catalog Name: Atherosclerotic heart disease of rincon coronary artery without angina pectoris Ischemic dilated cardiomyopathy: Catalog Name: Ischemic cardiomyopathy History of noncompliance with medical treatment, presenting hazards to health: Catalog Name: Patient's noncompliance with other medical treatment and regimen Obstructive sleep apnea syndrome: Catalog Name: Obstructive sleep apnea (adult) (pediatric) Prelim Disch Dx: Other chest pain: Catalog Name: Other chest pain Significant Events: diabetes: Past Medical History hypertension: Past Medical History congestive heart failure: Past Medical History CHOLECYSTECTOMY/ UMBILICAL HERNIA: Past Surgical History High Cholesterol: Past Medical History left toes amputated: Past Medical History DVT: Past Medical History Pulm Embolism: Past Medical History Hospital Providers: Provider RoleProvider Name Matt-Quang Lou PrimaryRequired, No Pcp DNAR: DNAR Statusnone Activity: activity as tolerated. Side rails up x 2. May shower. May return to school/work Instructions: May drive. No pushing, pulling, or lifting objects greater than 5 pounds. Diet: Dietlow sodium, diabetic/carbohydrate counted Diabetic/Carbohydrate Fymdymu00ylwh/Carb meal, 45gram/Carb snack (1999-2199cals) Fluid RestrictionTry not to drink more than 8 cups of water a day Additional Orders: Additional Instructions -Weigh yourself daily and write it down. If your weight increases more than 2kg in 24 hours, take 1 tablet of 20mg lasix. If your weight is increasing despite that, you can take up to 2 tablets. Lasix has an effect on your kidneys so if you feel like you are using it regularly, follow-up with your Primary Care Physician. They would like to check your kidneys. -Use the diclofenac gel and tylenol as needed for pain. If you develop a new rash, call your Primary Care Physician. They might want to start you on anti-viral therapy. -Followup routinely with your resume writer. You have a weak heart and they would like to work it up with further testing. Call Provider If (Homegoing Patients): Breathing faster than normal. Breathing harder than normal or having retractions. Fever of 100.4 F (38 C) or higher. Temperature is greater than 102 degrees. Any new concerning symptoms. Worsening of chest pain, shortness of breath on exertion, increased leg swelling, abnormal beating of heart, new rash. Hospital Course (Home Care/Gold Form): Hospital Course: Hospital Course: include significant abnormal lab values 49 year old Female With a past medical history of remote CAD, HFrEF (EF 30-35% in 09/21), hypertension, DM s/p L toe amputation, new provoked PE 2/2 immobility (on xarelto) who was transferred from OSH for evaluation of ischemic cardiomyopathy. Presented to OSH 2 days ago with hypoxic respiratory failure due to volume overload, resolved with IV diuresis. No ischemic changes on EKG and trops negative. Chest pain is sharp, constant and radiates below the L breast in a dermatomal distribution. Pt has a prior hx of chickenpox making herpes zoster the most likely etiology. Differential also includes costochondritis given tenderness to palpation and acute viral pericarditis given pleuritic nature. Very low concern for ACS given character of CP, negative trops and no EKG changes. Discharge on tylenol and diclofenac gel for pain control. F/U outpatient with cardiology for CT coronary vs. cath for further workup of ischemic cardiomyopathy. For PCP: -Pt on as needed lasix. Please order f/u RFP if taking lasix -Medical optimization Infectious Disease: PPD Statusnot given MRSAno VREno C. Diffno Other Resistant Organismno Isolation Typenone Provider FINAL REVIEW of Orders: Final Review: Final Review of Medication Reconciliation and Orders Completedby Physician Reviewing ProviderLilly Barfield MD (Resident) at 30-Sep-2019 11:54:22 Appointments: Follow-Up Appointment 01: Physician/Dept/ServiceDr. Abigail Mascorro, Cardiology Scheduled Date/[id number] 11:00 [facility] Cardiology Phone [phone] CommentsPlease do not come into the office. The will contact the patent VIA phone. Follow-Up Appointment 02: Physician/Dept/ServiceDr. Lexis Scanlon - Family Medicine Reason for ReferralEstablish with Primary Care Provider Scheduled Date/[id number] 10:00 LocationPLEASE DO NOT COME INTO THE OFFICE, WILL CONTACT PATIENT VIA PHONE, OFFICE WILL CALL TO CONFIRM APPOINTMENT Phone [phone] CommentsPlease arrive 10-15 minutes early, bring photo ID, current list of medications & dosages, insurance cards and any copay that may apply. If unable to keep this appointment, please call to cancel at least 24 hrs prior to appointment. Electronic Signatures: Kam Hassan (PT ACC REP) (Signed 30-Sep-2019 12:50) Authored: Appointments Alyx Trujillo (PT ACC REP) (Signed 30-Sep-2019 11:25) Authored: Tatiana, Gold Form - Sales Promotion Representative Summary Lilly Barfield (Resident)) (Signed 30-Sep-2019 11:54) Authored: Discharge Orders, Hospital Course (Home Care/Gold Form), Provider FINAL REVIEW of Orders, Appointments Last Updated: 30-Sep-2019 12:50 by Kam Hassan (PT ACC REP) Normal [facility] EMR ADDONon 09-30-2019 ADDON CONFIRMATION REQUEST REC'D Normal [facility] Comment on above: Performed By: #### C OAGS #### [facility] [address] [place] [address] GLUCOSE-POCTon 09-30-2019 Glucose [Mass/Vol] 210 mg/dL High 74 - 99 [facility] Comment on above: Performed By: #### C BCDF #### [facility] [address] [place] [address] Glucose [Mass/Vol] 230 mg/dL High 74 - 99 [facility] Comment on above: Performed By: #### G EMILY #### [facility] [address] [place] [address] LACTATEon 09-30-2019 Lactate [Moles/Vol] 2.0 mmol/L Normal 0.4 - 2.0 [facility] Comment on above: Result Comment: Marisol puncture immediately after or during the administration of Metamizole may lead to falsely low results. Testing should be performed immediately prior to Metamizole dosing. Performed By: #### L ACT #### [facility] [address] [place] [address] SEDIMENTATION RATE, ERYTHROC YTEon 09-30-2019 SEDIMENTATION RATE, ERYTHROCYTE 30 mm/h High 0 - 20 [facility] Comment on above: Performed By: #### E SRWS #### [facility] [address] [place] [address] TH ABDOMEN AP VIEWon 020 TH ABDOMEN AP VIEW Patient Name: TRENTON JACKSON STUDY: ABDOMEN AP VIEW; 09/30/2019 12:30 am INDICATION: Constipation. COMPARISON: None. ACCESSION NUMBER(S): [id number] ORDERING CLINICIAN: FRANCISCA FERRER FINDINGS: Surgical clips project over the right upper quadrant and right hemipelvis. Moderate degree of stool burden noted within the ascending colon and hepatic flexure. Nonobstructive bowel gas pattern. Limited evaluation of pneumoperitoneum on supine imaging, however no gross evidence of free air is noted. Visualized lungs are clear. Osseous structures demonstrate no acute bony changes. IMPRESSION: 1. Moderate degree of stool burden principally centered within the ascending colon and hepatic flexure. Correlate with constipation. I personally reviewed the images/study and I agree with the findings as stated. This study was interpreted at [place], [place]. Electronically signed by: BEV BUCHANAN MD Normal [facility] TROPONIN Ion 09-30-2019 Troponin I.cardiac [Mass/Vol] Canceled Normal [facility] Comment on above: Order Comment: TEST TROPONIN I WAS CANCELLED, 09/30/2019 14:12 DUPLICATE ORDER, SEE [id number]. Result Comment: LESS THAN 0.04 NG/ML: NEGATIVE REPEAT TESTING IN THREE TO SIX HOURS IF CLINICALLY INDICATED. 0.04 - 0.5 NG/ML: CONSISTENT WITH POSSIBLE CARDIAC DAMAGE AND POSSIBLE INCREASED CLINICAL RISK. SERIAL MEASUREMENTS MAY HELP ASSESS EXTENT OF MYOCARDIAL DAMAGE. >0.5 NG/ML: CONSISTENT WITH CARDIAC DAMAGE, INCREASED CLINICAL RISK AND MYOCARDIAL INFARCTION. SERIAL MEASUREMENTS MAY HELP ASSESS EXTENT OF MYOCARDIAL DAMAGE. . Note: Troponin I testing is performed using different testing methodology at [facility] than at other [facility]. Direct result comparisons should only be made within the same method. . Biotin interference may cause falsely decreased results. Patients taking a Biotin dose of up to 5 mg/day should refrain from taking Biotin for 24 hours before sample collection. Providers may contact their laboratory for further information. Performed By: #### T ROP2 #### [facility] [address] [place] [address] Troponin I.cardiac [Mass/Vol] 0.02 ng/mL Normal 0.00 - 0.03 [facility] Comment on above: Result Comment: LESS THAN 0.04 NG/ML: NEGATIVE REPEAT TESTING IN THREE TO SIX HOURS IF CLINICALLY INDICATED. 0.04 - 0.5 NG/ML: CONSISTENT WITH POSSIBLE CARDIAC DAMAGE AND POSSIBLE INCREASED CLINICAL RISK. SERIAL MEASUREMENTS MAY HELP ASSESS EXTENT OF MYOCARDIAL DAMAGE. >0.5 NG/ML: CONSISTENT WITH CARDIAC DAMAGE, INCREASED CLINICAL RISK AND MYOCARDIAL INFARCTION. SERIAL MEASUREMENTS MAY HELP ASSESS EXTENT OF MYOCARDIAL DAMAGE. . Note: Troponin I testing is performed using different testing methodology at [facility] than at other [facility]. Direct result comparisons should only be made within the same method. . Biotin interference may cause falsely decreased results. Patients taking a Biotin dose of up to 5 mg/day should refrain from taking Biotin for 24 hours before sample collection. Providers may contact their laboratory for further information. Performed By: #### C OAGS #### [facility] [address] [place] [address] URINALYSISon 09-30-2019 Appearance (U) CLEAR Normal CLEAR [facility] Comment on above: Performed By: #### U A #### [facility] [address] [place] [address] Bilirubin (U) [Mass/Vol] Negative Normal NEGATIVE [facility] Comment on above: Performed By: #### U A #### [facility] [address] [place] [address] BLOOD Negative Normal NEGATIVE [facility] Comment on above: Performed By: #### U A #### [facility] [address] [place] [address] Color (U) YELLOW Normal STRAW,YELL OW [facility] Comment on above: Performed By: #### U A #### [facility] [address] [place] [address] Glucose [Mass/Vol] Negative Normal NEGATIVE [facility] Comment on above: Performed By: #### U A #### [facility] [address] [place] [address] Ketones Ql (U) Negative Normal NEGATIVE [facility] Comment on above: Performed By: #### U A #### [facility] [address] [place] [address] Leukocyte esterase Test strip Ql (U) Negative Normal NEGATIVE [facility] Comment on above: Performed By: #### U A #### [facility] [address] [place] [address] Nitrite Ql (U) Negative Normal NEGATIVE [facility] Comment on above: Performed By: #### U A #### [facility] [address] [place] [address] pH (Bld) 5.0 Normal 5.0 - 8.0 [facility] Comment on above: Performed By: #### U A #### [facility] [address] [place] [address] Protein (U) [Mass/Vol] Negative Normal NEGATIVE [facility] Comment on above: Performed By: #### U A #### [facility] [address] [place] [address] Specific gravity (U) [Rel density] 1.014 Normal 1.005 - 1.035 [facility] Comment on above: Performed By: #### U A #### [facility] [address] [place] [address] Urobilinogen Qn (U) <2.0 Normal 0.0 - 1.9 [facility] Comment on above: Performed By: #### U A #### [facility] [address] [place] [address] Admission Risk Screen - Adul ton 09-29-2019 Admission Risk Screen - Adult Allergies: Allergies: NKDA: Latex: Unknown Patient Verification: New W ID Band Applied in my Departmentyes Patient Identity Verified Bypatient ID Band FULL Name, include Middle, spelling matches patient's ID used for verificationyes ID Band Matches Patient ID used for Verficationyes ID Band MRN Matches EMR MRNyes Visitor Restriction: Coronavirus Visitor Restriction: Reasonable restrictions to in-person visitors will be observed due to current coronavirus pandemic. Advance Directive: Advance Directive/DNRno Advance Directive Information Givenpatient/family declined Falls Screen: Type of Assessmentadmission Moderate Risk Factorspatient care equipment (scds, ivs, chest tubes, douglas, etc) High Risk Factorsgait instability, symptoms due to meds (sedatives, hypnotics, new diuretics and new laxatives) Risk for Injury Associated with Fallcoagulation blood thinners (Coumadin, heparin gtt), coagulopathy Fall Risk Conclusionhigh falls risk with risk for associated injury [place] Safety InterventionsWDL *orient to call system *instruct to call for assistance before getting out of bed *non-slip footwear when patient is out of bed *call swanson in reach *personal items and telephone in reach *physically safe environment (no spills or clutter) *bed in lowest position with wheels locked *appropriate side rails in place *room/bathroom lighting operational, light cord in reach *appropriate signage on door Fall and Injury Risk Interventionssupervised toileting (mandatory for all high risk patients), exit (bed/chair) alarms (mandatory for all high risk patients), bed alarm - zero scale to ensure bed alarm operation, collaborate with team for PT/OT consult/ambulatory aids, educate pt/family, educate patient/family for risk for injury (fractures and bleeding) Family Violence Screen: Are you or have you been threatened or abused physically, emotionally, or sexually by anyoneno Has anyone ever threatened to hurt your family or your petsno Does anyone try to keep you from having/contacting other friends or doing things outside your homeno Do you feel UNSAFE going back to the place where you are livingno Do you feel anyone has exploited or taken advantage of you financially or of your personal propertyno Clinical assessment: Are there any apparent signs of injuries/behaviors that could be related to abuse/neglectno Social Service Consult for abuse/neglect needed this visitno Functional Screen: Functional Screen: In the recent/past 2-4 weeks, patient or family have noticedno issues that require a speech/language consult at this time AM-PAC- Basic Mobility/Daily Activity: Patient baseline bedboundno Turning from your back to your side while in a flat bed without using bedrailsnone Moving from lying on your back to sitting on the side of a flat bed without using bedrailsnone Moving to and from bed to chair (including a wheelchair)none Standing up from a chair using your arms (e.g. wheelchair or bedside chair) none To walk in hospital roomnone Climbing 3-5 steps with railingnone AM-PAC Basic Mobility- Total Score24 Putting on and taking off regular lower body clothingnone Bathing (including washing, rinsing, drying)none Putting on and taking off regular upper body clothingnone Toileting, which includes using toilet, bedpan or urinalnone Taking care of personal grooming such as brushing teethnone Eating Mealsnone AM-PAC Daily Activity- Total Score24 Learning Assessment (Patient): Patient is Able to be Assessed for Learningyes Factors Influencing Readiness to Learninterest in learning; motivation to learn Factors that Impact Ability to Learnnone Devices/Methods Used to Communicatenone Learning Preferencesindividual instruction; skill demonstration Cultural Considerationsnone Developmental Considerationsnone Scientologist Considerationsnone Learning Assessment (Other Learner): Other learner availableno Suicide/Depression Screen: During the past month, have you often been bothered by feeling down, depressed or hopelessno During the past month, have you often had little interest or pleasure in doing thingsno Have you had any thoughts of harming yourselfno Have you had any thoughts of harming anyone elseno Adult Nutrition Screen: Have you recently lost weight without tryingno Have you been eating poorly because of a decreased appetiteno Malnutrition Screening Tool Score0 Malnutrition Screening Tool RiskMST = 0 or 1 Not at risk. Eating well with little or no weight loss Nutrition Consult needed this visitno Can Patient Participate in Room Serviceyes Patient requires Paper Dishes/Plastic Utensilsno Pain Screen: Pain Scalenumerical 0-10 Pain Scale Educationteaching provided Current Pain Level10 = Severe Acceptable Pain Level10 = Severe Expression of Pain (nonverbal)none Chronic Painno Spiritual Screen: Are there any cultural, spiritual, confucianist practices/values/needs that are important for us to knowno CAGE: Is this an injured patient at a Tra[place] Center [place] [place]/[place]/ [place] no Vaccinations: Vaccination - Influenza Vaccination Screen: Is it flu season (between and September 14)No Vaccination - Pneumonia Vaccination Screen: Patient has received a previous pneumonia vaccine:yes Selwyn: Skin - Selwyn Scale: Selwyn: Sensory Perception (response to environment)(4) no impairment Selwyn: Moisture (degree skin exposed to moisture)(3) occasionally moist Selwyn: Activity (ability to walk)(3) walks occasionally Selwyn: Mobility (amount/control of body movement)(3) slightly limited Selwyn: Nutrition (quality of food intake)(3) adequate Selwyn: Friction and Shear(3) no apparent problem Selwyn: Score19 Significant Indicatiors: Significant Indicators: Complete Pressure Injury: Pressure Injury Present on Admissionno Electronic Signatures: Bina Saunders (RN) (Signed 29-Sep-2019 20:36) Authored: Admission Risk Screens, Vaccinations, Selwyn, Pressure Injury Last Updated: 29-Sep-2019 20:36 by Bina Saunders (RN) Normal [facility] Discharge Planning [id number] 09-29-2019 Discharge Planning Note2 Discharge Planning: Anticipated Discharge [id number] Discharge Planning 09/29/19 2139 Discharge Planning Note: Patient admitted from [facility] with complaints of chest pain. Patient lives at home with - Curry [facility]- [phone]. Patient is independent of ADLS and uses a walker and cane at home. Will reassess patient's home going needs prior to discharge. Gian Saunders RN 09/30/2019 @1130 Patient Eyeglass Frame Truer Note PCN informed per TCC that pt. would need ride home at discharge. Per medical team pt. can discharge after 12pm. PCN called and spoke with pt. to verify demos. Demos verified. The pt. stated that she is going to call her aunt to see if she can come and pick the pt. up at [facility]. PCN awaiting call back. TCC aware. UPDATE @1300: PCN called and spoke with the pt. and at this time she was unable to secure a ride home from her aunt. PCN informed her that PCN would contact [facility] and get pt. a ride to her residence. UPDATE @1315: PCN able to secure a ride for pt per [id number] for right now to 1415. PCN called and informed [place] desk 5 Juancarlos and informed him that he will be receiving a call for pickup. Juancarlos then transferred PCN to bedside nurse Vivien and PCN informed her as well to have pt. ready for pickup. PCN contacted Sheila (resident) to make sure discharge orders are in for pt. to be discharged. TCC aware. Ada Jasmine, Patient Eyeglass Frame Truer [phone] 09/30/2019 1400 Patient discharged home with no home care needs, IV removed, acknowledged discharge instructions. Patient left via transport to provide a ride. Vivien Ramesh RN Assessment: Discharge Planning Assessment [id number] Discharge Planning Assessment Completed byJazzmine Villanueva RNhydraulic elevator constructor Coordinator [phone] Primary Contact Name and NumberDarcy Jackson- [phone](1) Stated Reason for Admissionchest pain(1) Arrived Fromhospital (1) PCPnone PCP Last Date [facility] Adherence/Afford/Obtainye s; Patient takes all medication as prescribed. Denies difficulty obtaining or affording medication. Preferred pharmacy added to outpatient medication review. InsuranceCaresouce Lives Withspouse(1) Living Arrangementshouse(1) Recent Falls/ Injury/ Need Assist with AmbulationStates has a cane and walker at home, denies falls Prior Level of FunctioningLives at home with and kids, States independent with ADLs. Home Care Agency/Support Servicesna DME Supplier Name/Numberna Home O2/Cpap/Bipapna Diabetic/Supplies Neededna Hemodialysis Schedulena Resource/Environmental Concernsnone(1) Social Determinants of Health Identifiedna Special Considerationsna Transportation Home Who/HowStates transports self to and from appointments. Patient states she will try to find a ride home Anticipated Transition [place](1) Services Anticipated at Transitionnone(1) Anticipated Changes Related to Illnessnone Equipment Needed After Dischargenone Anticipated Discharge Facility/Level of Care NeedsHome Discharge Planning CommentsDenies need to speak to manager social work. This information was obtained via telephonic communication to maintain safe distancing for COVID-19 precautionary measures Electronic Signatures: Bina Saunders (RN) (Signed 29-Sep-2019 21:44) Authored: Discharge Planning Note2 Jazzmine Villanueva (RN) (Signed 30-Sep-2019 10:34) Authored: Discharge Planning Note2 Vivien Ramesh (RN) (Signed 30-Sep-2019 14:52) Authored: Discharge Planning Note2 Ada Jasmine (PCN) (Signed 30-Sep-2019 13:48) Authored: Discharge Planning Note2 Last Updated: 30-Sep-2019 14:52 by Vivien Ramesh (RN) References: 1. Data Referenced From Patient Profile - Adult v2 29-Sep-2019 20:36 Normal [facility] GLUCOSE-POCTon 09-29-2019 Glucose [Mass/Vol] 189 mg/dL High 74 - 99 [facility] Comment on above: Performed By: #### G EMILY #### [facility] [address] [place] [address] Patient Profile - Adult v2on 09-29-2019 Patient Profile - Adult v2 Profile: Initial Info: How to be AddressedShelley(1) Spoken Language PreferredEnglish (1) Are you currently using the Personal Electronic Health Record or [employer]no (1) Stated Reason for Admissionchest pain Primary Contact Name and All Jackson- [phone] Wants Family/Rep Notified of Admissionno Notify PCPdeferred, unable to answer Informed of Patient Visiting Rightsyes Arrived Fromspital Patient Belongingsremains with patient Medications Brought to Hospitalyes General Health: Weight in kg89.2 kilogram(s) Weight in pji085.6 pound(s) Height in feet5 feet Height in inches7 inch(es) Height in cm170.1 centimeter(s) BMI (kg/m2)30.828 square meter Weight Methodactual (measured) Scale Typestanding Height Methodstated Blood Avoidance/Restrictionsnon e(1) Previous Transfusion Reactionno(1) RSP Based Care: How would you like to participate in your carekeep me informed What is the number one concern for you during this hospitalizationnothing What is the most important thing we can do to support you during this hospitalizationkeep me comfortable Is there anything we need to know to best care for younothing Substance: Current or Former Substance Use never: e-Cigarette/Vaping(1), Alcohol(1), Street Drugs(1) YES: Cigarette/Tobacco(1) Tobacco Cessation Education (provide if tobacco use within the last 12 mos)yes Health Mgmt: Symptoms/Conditions Managed at Homecardiovascular; endocrine Are You Currently Breastfeedingno Cardiovascular Managementmanaged Endocrine Managementmanaged Are You no Relationship/Environ: Primary Source of Support/Comfortspouse Lives Withspouse Living Arrangementshouse Significant Exposuresecondhand smoke(1) Resource/Environmental Concernsnone [facility] Anticipated at Transitionnone Significant IndicatorsComplete Information Review: Allergies, Home Meds and Significant Events have been Reviewed and Verified with Patient/Familyyes ALLERGY, INTOLERANCE, ADVERSE EVENT: Allergies: NKDA: Active Latex: Latex, Unknown, Active Electronic Signatures: Bina Saunders (RN) (Signed 29-Sep-2019 20:42) Authored: Profile, Additional Information Last Updated: 29-Sep-2019 20:42 by Bina Saunders (RN) References: 1. Data Referenced From Patient Profile - Adult v2 28-Sep-2019 10:57 Normal [facility] Surgical Pathology Depar tmenton 08-15-2019 [facility] Surgical Pathology Department Name TRENTON JACKSON. Pathologist: PETR RAYA MD Date of Procedure: 08/15/2019 Date Received: 08/18/2019 Date Reported 08/26/2019 Submitting Physician: Justin Brooks Location: Copy To/Referring/Attending: LATRICIA KATHLEEN MD Other External # FINAL DIAGNOSIS LEFT FOREFOOT, TRANSMETATARSAL AMPUTATION: --ULCER AND ABSCESS --NO OSTEOMYELITIS IDENTIFIED The gross and/or microscopic findings were reviewed in conjunction with pathology resident, Gretta Schofield M.D. Electronically Signed Out By PETR RAYA MD/KATIE By the signature on this report, the individual or group listed as making the Final Interpretation/Diagnosis certifies that they have reviewed this case. Clinical History: Physician Contact Number: [id number] Fixative (A): Formalin Clinical Diagnosis History TRENTON JACKSON is a 48 year old Female who presented to the emergency department via squad on 08/12/2019 due to pain, redness, and drainage at her left 4th and 5th toe amputation site. She had surgery to amputate the toes in June 2019 and had approximately 2 weeks of home health care for IV Cefepime. States she did complete the cefepime course but did not go to any of her follow up appointments due to lack of transportation. There are still sutures at the site. She noted yesterday that the area was beefy red and oozing green stuff yesterday when she returned home from being out with her . She notes that the foot had been healing well but started to become swollen and painful about 2 days ago. She has not had any fever or chills but has had some nausea, vomiting, and diarrhea for about 2 days. She has been taking her insulin but not watching her diet and her sugars have been consistently high, around 300 most days. She has not had any falls or injuries. She walks with her surgical boot and states she is compliant with wearing the boot during the day but does take it off at bedtime. She's not had any falls or injuries. Upon arrival to the emergency department her temperature was 98, heart rate 105, respirations 18, oxygen saturation 98%, blood pressure 136/86. Diagnostic workup showed an unremarkable CBC, a normal lactic acid level of 1.7, BMP was remarkable for an elevated serum glucose of 394, serum sodium 132, and a serum chloride of 97. X-ray of the left foot showed status post amputation 4th and 5th digits left foot. There is irregularity of the cortices of the mid diaphyses of the 4th and 5th metatarsals; reactive change versus osteomyelitis.Small linear lucency base distal phalanx 1st digit medially which could represent a hairline fracture. In the emergency department she was given 4 mg of IV morphine, 4 mg of IV Zofran, and 1250 mg of IV vancomycin. She was then recommended for admission to the medical service under the diagnosis of left f Specimens Submitted As: A: LEFT FOREFOOT Gross Description: A: Received fresh, labeled with the patient's name and hospital number and left forefoot, is a partial left forefoot with great, second and third toe. The foot was amputated transmetatarsally. The foot, 9.0 x 3.8 x 3.9 cm, has an area of necrosis involving the skin and soft tissue at the lateral side, measuring 5.0 x 1.5 cm. The bone underlying the necrotic area appears unremarkable. Turning Sander Operator sections are submitted in 5 cassettes following decalcification. MY Summary of Cassettes: Specimen Label Site A 1 section of the necrotic area 2 bone margin of great toe 3 bone margin of second toe 4 bone margin of third toe 5 section of necrotic area with adjacent bone my/08/20/2019 Normal [facility] Comment on above: Performed By: #### C BCDF #### [facility] [address] [place] [address] [facility] Surgical Pathology Depar tmenton 06-23-2019 [facility] Surgical Pathology Department Name TRENTON JACKSON Pathologist: ZOHREH COSTA MD Date of Procedure: 06/23/2019 Date Received: 06/23/2019 Date Reported 06/27/2019 Submitting Physician: QUOC VIRK DPM Location: [facility] Surgical Copy To/Referring/Attending: HALIE RIVERA MD Other External # FINAL DIAGNOSIS A. LEFT FOOT PARTIAL 4TH AND 5TH DIGIT RAY AMPUTATION: -- CELLULITIS -- CHRONIC OSTEOMYELITIS Electronically Signed Out By ZOHREH COSTA MD/VANDANA By the signature on this report, the individual or group listed as making the Final Interpretation/Diagnosis certifies that they have reviewed this case. Clinical History: Physician Contact Number: [id number] Fixative (A): Formalin Clinical Diagnosis History TRENTON JACKSON is a 48 year old Female who presented to the emergency department with increasing left foot pain and swelling with redness having failed outpatient therapy. She notes that her symptoms started about a week prior to presentation. She decided to use [id number]-hte-gqebfef aspirin and routine foot care to attend the redness. However, despite supportive care, her symptoms worsened. She presented to the emergency department on 06/11/2019 and was treated with amoxicillin and pain medications. She did not note any improvement in her redness. As a matter fact, she felt like the redness worsened after the antibiotics. She also noted increasing pain that she described as a sharp discomfort with a 9/10 intensity. She developed GI symptoms from the antibiotics as well. The pain did not radiate outside of the foot. She reported having a temperature of 98.4???F in the outpatient setting. She was having occasional chills but denied any sweats. She was not reporting any change in her bowels, bladder, or appetite issues. She was unsure of her last hemoglobin A1c in the context of her type 2 diabetes. Because of the increasing redness and swelling, she decided to present to the emergency department for evaluation. In the emergency department, she was afebrile with a pulse in the 80s to 110s. She had a blood pressure 149/81 and a respiratory rate of 16. She did a 95-98% saturation on room air. Her laboratory data revealed a white blood cell count of 13,000 with a hemoglobin of 15.9. Her glucose was 421 on presentation with a serum sodium of 130 and a BUN of 7 with a creatinine of 0.68. Her lactate level was 1.7. Her urine had small amounts of blood with considerable glucosuria. She was treated with a dose of IV vancomycin along with IV pain medications and was recommended for inpatient evaluation and management. 10 systems were reviewed and were negative except for those noted in the history of present illness. Past medical history-the patient has had 2 diabetes, c Specimens Submitted As: A: LEFT FOOT PARTIAL 4TH AND 5TH DIGIT RAY AMPUTUATION Gross Description: A. Received in formalin, labeled with the patient's name and hospital number and left foot partial fourth and fifth digit ray amputation , is a left 4th and 5th digit. The digits were disarticulated at the metatarsophalangeal joint. The 4th digit, 4?1.5 x 2 cm, and 5th digit 3.2 x 1.5 x 1.5 cm, are not diffusely covered with wet gangrene. There is a possible lesion which does not grossly involve the underlying soft tissue and bone. There are segments of loose bone and possible soft tissue measuring 4 x 3 x 2 cm. Turning Sander Operator sections are submitted in 4 cassettes. SPS Summary of Cassettes: Specimen Label Site A 1 5th toe bone 2 4th toe bone 3-4 soft tissue Normal [facility] Comment on above: Performed By: #### C BCDF #### [facility] [address] [place] [address] CT ABD/PEL W IVCONon 11-05-[address] ABD/PEL W IVCON * * *Final Report* * * DATE OF EXAM: Apr 08 2019 3:29PM [facility] 0530 - CT ABD/PEL W IVCON / PROCEDURE REASON: Abd pain, unspecified * * * * Physician Interpretation * * * * EXAMINATION: CT ABDOMEN AND PELVIS WITH IV CONTRAST CLINICAL HISTORY: Abdominal pain and right upper quadrant pain for one week, elevated white blood cell count TECHNIQUE: CT of the abdomen and pelvis was performed using standard technique, scanning from just above the dome of the diaphragm to the symphysis pubis. Sagittal and coronal reconstructions were performed MQ: CTAP_3 Contrast: IV: 150 ml of Omnipaque 300 Oral: None CT Radiation dose: Integrated Dose-length product (DLP) for this visit = 713.76 mGy*cm. CT Dose Reduction Employed: Automated exposure control (AEC) COMPARISON: CT abdomen and pelvis 03/17/2019, 10/04/2018 and 01/04/2015 RESULT: Liver: Stable 1.4 x 1.2 cm lesion right lobe of liver (2:21) and stable 2 cm x 1.4 cm lesion inferior margin right lobe of the liver (2:49. Both of these are stable since at least 2014 and likely benign given their long-term stability. These may represent hemangiomas. Biliary: No bile duct dilation. Gallbladder is absent. Spleen: There are multiple small lesions scattered throughout the spleen measuring a few millimeters each unchanged when compared to previous CTs possibly representing small granulomas or hamartomas. No splenomegaly. Pancreas: No mass or duct dilation. Adrenals: Right adrenal nodule measuring 1.7 x 1.8 cm stable in size. Left adrenal nodule measuring 1.9 x 1.6 cm stable in size. Kidneys: No renal calculus or hydronephrosis. There is a 1.6 cm cyst in the upper pole of the left kidney. GI tract: Stomach is unremarkable. No dilated or thickened loops of large or small bowel. Multiple diverticula within the descending and sigmoid colon colon without CT evidence of diverticulitis. The appendix is not identified. No findings to suggest appendicitis. Lymph nodes: No abdominal or pelvic lymphadenopathy. Mesentery/Peritoneum: No ascites or mass. Retroperitoneum: No mass. Vasculature: The celiac axis and SMA are patent. The portal vein and branches, splenic vein, SMV, and hepatic veins are patent. No abdominal aortic or iliac artery aneurysm. Pelvis: No mass, ascites or fluid collection. Uterus and bladder unremarkable. Bones/Soft Tissues: Osseous structures are unremarkable. Lower thorax: Small cluster of tree in bud opacities in the left lower lobe likely related to infectious or inflammatory process. Fluid collection near the cardiac apex measuring 2.2 cm unchanged since 2014 likely pericardial cyst. IMPRESSION: No CT evidence of acute process within the abdomen or pelvis. Mild descending and sigmoid colon diverticulosis without definite CT evidence of diverticulitis. Chronic findings as detailed above. Concrete Tile Machine Operator: PSCB Transcribe Date/Time: Apr 08 2019 3:35P Dictated by : SABINA ODOM MD This examination was interpreted and the report reviewed and electronically signed by: SABINA ODOM MD on Apr 08 2019 3:51PM EST Normal [facility] Comprehensive Panelon 2018 Albumin [Mass/Vol] 3.7 g/dL Normal 3.4-5.0 [facility] Comment on above: Performed By: #### L MACU #### [facility] [address] [place] [address] ALP [Catalytic activity/Vol] 131 U/L High 46-116 [facility] Comment on above: Performed By: #### L MACU #### [facility] [address] [place] [address] ALT-SGPT Blood 21 U/L Normal 14-63 [facility] Comment on above: Performed By: #### L MACU #### [facility] [address] [place] [address] Anion gap [Moles/Vol] 15 mmol/L Normal 8-20 [facility] Comment on above: Performed By: #### L MACU #### [facility] [address] [place] [address] AST-SGOT Blood 16 U/L Normal 15-37 [facility] Comment on above: Performed By: #### L MACU #### [facility] [address] [place] [address] Bilirubin Ql (U) 0.6 mg/dL Normal 0.2-1.0 [facility] Comment on above: Performed By: #### L MACU #### [facility] [address] [place] [address] Calcium [Mass/Vol] 9.4 mg/dL Normal 8.5-10.1 [facility] Comment on above: Performed By: #### L MACU #### [facility] [address] [place] [address] CO2 Blood 29 mEq/L Normal 21-32 [facility] Comment on above: Performed By: #### L MACU #### [facility] [address] [place] [address] Creatinine [Mass/Vol] 0.65 mg/dL Normal 0.51-0.95 [facility] Comment on above: Performed By: #### L MACU #### [place] [address] Glucose [Mass/Vol] 370 mg/dL High 70-99 [facility] Comment on above: Performed By: #### L MACU #### [facility] [address] [place], [place] [address] Protein [Mass/Vol] 8.1 g/dL Normal 6.4-8.2 [facility] Comment on above: Performed By: #### L MACU #### [facility] [address] [place] [address] Urea nitrogen [Mass/Vol] 5 mg/dL Low 7-18 [facility] Comment on above: Performed By: #### L MACU #### [facility] [address] [place] [address] Urea nitrogen/Creatinine [Mass ratio] 8 mg/mg Low 10-20 [facility] Comment on above: Performed By: #### L MACU #### [facility] [address] [place] [address] Chloride [Moles/Vol] 98 mmol/L Normal 98-109 [facility] Comment on above: Result Comment: Test ing performed on an Palacio i-STAT. Performed By: #### L MACU #### [facility] [address] [place] [address] Potassium [Moles/Vol] 4.1 mmol/L Normal 3.5-4.9 [facility] Comment on above: Result Comment: Test ing performed on an Palacio i-STAT. Performed By: #### L MACU #### [place] [address] Sodium [Moles/Vol] 138 mmol/L Normal 138-146 [facility] Comment on above: Result Comment: Test ing performed on an Palacio i-STAT. Performed By: #### L MACU #### [facility] [address] [place] [address] Hemogram/Manual Diffon 04-08 Abs. Baso 0.00 thou/cmm Normal 0.00-0.08 [facility] Comment on above: Performed By: #### L MACU #### [facility] [address] [place] [address] Abs. Eosin 0.39 thou/cmm Normal 0.00-0.41 [facility] Comment on above: Performed By: #### L MACU #### [facility] [address] [place] [address] Abs. Lymph 1.82 thou/cmm Normal 1.50-3.65 [facility] Comment on above: Performed By: #### L MACU #### [facility] [address] [place] [address] Abs. Erie 0.65 thou/cmm Normal 0.20-1.00 [facility] Comment on above: Performed By: #### L MACU #### [place] [address] Abs. Neut (ANC) 10.14 thou/cmm High 3.00-5.67 [facility] Comment on above: Performed By: #### L MACU #### [place] [address] Anisocytosis Ql (Bld) Few Normal [facility] Comment on above: Performed By: #### L MACU #### [place] [address] Basophil 0.0 % Normal [facility] Comment on above: Performed By: #### L MACU #### [place] [address] Eosinophil 3.0 % Normal [facility] Comment on above: Performed By: #### L MACU #### [place] [address] Lymphocyte 14.0 % Normal [facility] Comment on above: Performed By: #### L MACU #### [place] [address] Monocyte 5.0 % Normal [facility] Comment on above: Performed By: #### L MACU #### [place] [address] Platelets (Bld) [#/Vol] Normal Normal [facility] Comment on above: Performed By: #### L MACU #### [place] [address] Seg Neutrophil 78.0 % Normal [facility] Comment on above: Performed By: #### L MACU #### [facility] [address] [place] [address] Toxic Granulation Few Normal [facility] Comment on above: Performed By: #### L MACU #### [facility] [address] [place] [address] Diff Type Manual Diff Normal [facility] Comment on above: Performed By: #### L MACU #### [facility] [address] [place] [address] Erythrocyte distribution width (RBC) [Ratio] 12.8 % Normal 11.5-15.9 [facility] Comment on above: Performed By: #### L MACU #### [place] [address] Hematocrit (Bld) [Volume fraction] 46.9 % Normal 37.0-47.0 [facility] Comment on above: Performed By: #### L MACU #### [place] [address] Hemoglobin (Bld) [Mass/Vol] 15.9 g/dL Normal 12.0-16.0 [facility] Comment on above: Performed By: #### L MACU #### [place] [address] MCH (RBC) [Entitic mass] 27.8 pg Normal 27.0-31.0 [facility] Comment on above: Performed By: #### L MACU #### [place] [address] MCHC (RBC) [Mass/Vol] 33.9 % Normal 32.0-36.0 [facility] Comment on above: Performed By: #### L MACU #### [place] [address] MCV (RBC) [Entitic vol] 82.0 fl Normal 81.0-99.0 [facility] Comment on above: Performed By: #### L MACU #### [place] [address] Platelet mean volume (Bld) [Entitic vol] 9.8 fl Normal 7.1-10.5 [facility] Comment on above: Performed By: #### L MACU #### [facility] [address] [place], [place] [address] Platelets (Bld) [#/Vol] 233 thou/cmm Normal 150-400 [facility] Comment on above: Performed By: #### L MACU #### [place] [address] RBC (Bld) [#/Vol] 5.72 mil/cmm High 4.20-5.40 [facility] Comment on above: Performed By: #### L MACU #### [place] [address] WBC (Bld) [#/Vol] 13.0 thou/cmm High 4.8-10.5 [facility] Comment on above: Performed By: #### L MACU #### [place] [address] Lactic acidon 04-08-2019 Lactate [Moles/Vol] 1.8 mmol/L Normal 0.4-2.0 [facility] Comment on above: Performed By: #### L MACU #### [place] [address] Lipase Bloodon 04-08-2019 Lipase Blood 68 U/L Low 73-393 [facility] Comment on above: Performed By: #### L MACU #### [place] [address] MDRD eGFRon 04-08-2019 GFR/1.73 sq M predicted among non-blacks MDRD (S/P/Bld) [Vol rate/Area] mL/min/{1.73_m2} Normal >60mL/min/ 1.73m2 [facility] Comment on above: Result Comment: If t he patient is , multiply the result by 1.210. Performed By: #### L MACU #### [place] [address] Troponin Ion 04-08-2019 Troponin I.cardiac [Mass/Vol] ng/mL Normal <=0.07 [facility] Comment on above: Performed By: #### L MACU #### [facility] [address] [place] [address] Urinalysis Routineon 019 Appearance (U) CLEAR Normal [facility] Comment on above: Performed By: #### L MACU #### [facility] [address] [place] [address] Bilirubin Urine Negative Normal Negative [facility] Comment on above: Performed By: #### L MACU #### [place] [address] Color (U) YELLOW Normal [facility] Comment on above: Performed By: #### L MACU #### [place] [address] Ep Cells Urine 0-2 Normal 0-5 [facility] Comment on above: Performed By: #### L MACU #### [facility] [address] [place] [address] Glucose Ql (U) 2+ Abnormal Negative [facility] Comment on above: Performed By: #### L MACU #### [place] [address] Hemoglobin,Urine TRACE-INTACT Abnormal Negative [facility] Comment on above: Performed By: #### L MACU #### [place] [address] Ketone Urine Negative Normal Negative [facility] Comment on above: Performed By: #### L MACU #### [place] [address] Leukocytes Esterase Negative Normal Negative [facility] Comment on above: Performed By: #### L MACU #### [place] [address] Nitrites Urine Negative Normal Negative [facility] Comment on above: Performed By: #### L MACU #### [place] [address] pH (U) 5.5 [pH] Normal 5.0-8.0 [facility] Comment on above: Performed By: #### L MACU #### [facility] [address] [place] [address] Protein (U) [Mass/Vol] Negative Normal Negative [facility] Comment on above: Performed By: #### L MACU #### [facility] [address] [place], [place] [address] RBC LM.HPF (Urine sed) [#/Area] 0-3 Normal 0-3 [facility] Comment on above: Performed By: #### L MACU #### [place] [address] Specific [place], Ur 1.010 Normal 1.005-1 .03 0 [facility] Comment on above: Performed By: #### L MACU #### [facility] [address] [place] [address] Urobilinogen,Ur 0.2 EU/dL Normal 0.2-1.0 [facility] Comment on above: Performed By: #### L MACU #### [facility] [address] [place] [address] WBC LM.HPF (Urine sed) [#/Area] 0-2 Normal 0-5 [facility] Comment on above: Performed By: #### L MACU #### [facility] [address] [place] [address] Urine HCG, Qual.on 9 Beta HCG ( test) Ql (U) Negative Normal Negative [facility] Comment on above: Performed By: #### L MACU #### [place] [address] CT ABD/PEL W IVCONon 10-14-[address] ABD/PEL W IVCON * * *Final Report* * * DATE OF EXAM: Mar 17 2019 12:16PM [facility] 0530 - CT ABD/PEL W IVCON / PROCEDURE REASON: Abd pain, diverticulitis suspected * * * * Physician Interpretation * * * * EXAMINATION: CT ABDOMEN AND PELVIS WITH IV CONTRAST CLINICAL HISTORY: Abd pain, diverticulitis suspected TECHNIQUE: CT of the abdomen and pelvis was performed using standard technique, scanning from just above the dome of the diaphragm to the symphysis pubis. MQ: CTAP_3 Contrast: IV: 150 ml of Omnipaque 300 CT Radiation dose: Integrated Dose-length product (DLP) for this visit = 708.36 mGy*cm. CT Dose Reduction Employed: Automated exposure control (AEC) COMPARISON: CT of the abdomen and pelvis 10/14/2018 and prior studies RESULT: Liver: Unchanged 1.5 cm ill-defined hypoattenuating lesion in the hepatic segment 8 and 2.4 cm lesion in the inferior right hepatic lobe with suggestion of peripheral nodular enhancement as can be seen with hemangiomas, stable since 01/2015. Stable surgical clips in the posterior right hepatic lobe. Minimal hypoattenuation adjacent to the falciform ligament, likely focal fatty infiltration. Biliary: No bile duct dilation. Status post cholecystectomy. Spleen: No mass. No splenomegaly. Pancreas: No mass or duct dilation. Adrenals: Unchanged indeterminate 1.9 cm right adrenal lesion and 1.8 cm left adrenal adenoma, unchanged since 12/2014. Kidneys: Mild narrowing of the origin of the left renal artery. Unchanged 1.7 cm cyst in the superior left renal pole. Symmetric nephrograms. No hydronephrosis or nephrolithiasis. GI tract: The stomach is unremarkable. Wall thickening and enhancement in the third and fourth portion of the duodenum and proximal jejunum. A short segment of distended small bowel in the left flank measures up to 3.5 cm with distal narrowing related to a segment of wall thickening and enhancement. Other focal areas of wall thickening and enhancement are present in the distal small bowel such ileum at the right lower quadrant, suggesting multifocal inflammatory process. Appendectomy. Mild colonic diverticulosis without signs of acute inflammation. Lymph nodes: No abdominal or pelvic lymphadenopathy. Mesentery/Peritoneum: No ascites or mass. Retroperitoneum: No mass. Vasculature: The celiac axis and SMA are patent. The portal vein and branches, splenic vein, SMV, and hepatic veins are patent. Mild atherosclerotic calcifications of the infrarenal abdominal aorta. Pelvis: Uterus and adnexa are unremarkable. Urinary bladder is normal. No free pelvic fluid. Bones/Soft Tissues: Suggestion of diffuse osseous demineralization. Degenerative changes of the lower lumbar spine. Left gluteal injection granuloma. Lower thorax: Unchanged 2.9 cm left pericardial cyst. IMPRESSION: 1. Multifocal areas mild wall thickening and enhancement in the duodenum and small bowel suggesting acute inflammatory/infectious enteritis. No bowel obstruction. No free pelvic fluid. 2. Mild sigmoid diverticulosis without signs of acute inflammation. Other chronic findings, as above. [employer]: [email or web address] Transcribe Date/Time: Mar 17 2019 12:22P Dictated by : EDEN CALHOUN MD This examination was interpreted and the report reviewed and electronically signed by: EDEN CALHOUN MD on Mar 17 2019 12:41PM EST Normal [facility] Comprehensive Panelon 2018 Anion gap [Moles/Vol] 13 mmol/L Normal 8-20 [facility] Comment on above: Performed By: #### L MACU #### [place] [address] Chloride [Moles/Vol] 99 mmol/L Normal 98-109 [facility] Comment on above: Result Comment: Test ing performed on an Palacio i-STAT. Performed By: #### L MACU #### [address] [address] Potassium [Moles/Vol] 4.5 mmol/L Normal 3.5-4.9 [facility] Comment on above: Result Comment: Test ing performed on an Palacio i-STAT. Performed By: #### L MACU #### [place] [address] Sodium [Moles/Vol] 135 mmol/L Low 138-146 [facility] Comment on above: Result Comment: Test ing performed on an [place]acio i-STAT. Performed By: #### L MACU #### [address] [address] Albumin [Mass/Vol] 3.5 g/dL Normal 3.4-5.0 [facility] Comment on above: Performed By: #### L MACU #### [address] [address] ALP [Catalytic activity/Vol] 109 U/L Normal 46-116 [facility] Comment on above: Performed By: #### L MACU #### [address] [address] ALT-SGPT Blood 22 U/L Normal 14-63 [facility] Comment on above: Performed By: #### L MACU #### [facility] [address] [place], [place] [address] AST-SGOT Blood 21 U/L Normal 15-37 [facility] Comment on above: Performed By: #### L MACU #### [facility] [address] [place], [place] [address] Bilirubin Ql (U) 0.7 mg/dL Normal 0.2-1.0 [facility] Comment on above: Performed By: #### L MACU #### [facility] [address] [place], [place] [address] Calcium [Mass/Vol] 9.0 mg/dL Normal 8.5-10.1 [facility] Comment on above: Performed By: #### L MACU #### [facility] [address] [place], [place] [address] CO2 Blood 28 mEq/L Normal 21-32 [facility] Comment on above: Performed By: #### L MACU #### [facility] [address] [place], [place] [address] Creatinine [Mass/Vol] 0.63 mg/dL Normal 0.51-0.95 [facility] Comment on above: Performed By: #### L MACU #### [facility] [address] [place], [place] [address] Glucose [Mass/Vol] 312 mg/dL High 70-99 [facility] Comment on above: Performed By: #### L MACU #### [facility] [address] [place], [place] [address] Protein [Mass/Vol] 7.5 g/dL Normal 6.4-8.2 [facility] Comment on above: Performed By: #### L MACU #### [facility] [address] [place], [place] [address] Urea nitrogen [Mass/Vol] 5 mg/dL Low 7-18 [facility] Comment on above: Performed By: #### L MACU #### [facility] [address] [place], [place] [address] Urea nitrogen/Creatinine [Mass ratio] 8 mg/mg Low 10-20 [facility] Comment on above: Performed By: #### L MACU #### [facility] [address] [place] [address] Hemogram/Diffon 03-17-2019 Abs. Baso 0.11 thou/cmm High 0.00-0.08 [facility] Comment on above: Performed By: #### L MACU #### [facility] [address] [place] [address] Abs. [place] 0.49 thou/cmm Normal 0.20-1.00 [facility] Comment on above: Performed By: #### L MACU #### [place] [address] Abs. Neut (ANC) 7.08 thou/cmm High 3.00-5.67 [facility] Comment on above: Performed By: #### L MACU #### [place] [address] Basophils/100 WBC (Bld) 1.1 % Normal [facility] Comment on above: Performed By: #### L MACU #### [place] [address] Eosinophils (Bld) [#/Vol] 0.27 thou/cmm Normal 0.00-0.41 [facility] Comment on above: Performed By: #### L MACU #### [place] [address] Eosinophils/100 WBC (Bld) 2.7 % Normal [facility] Comment on above: Performed By: #### L MACU #### [place] [address] Erythrocyte distribution width (RBC) [Ratio] 12.9 % Normal 11.5-15.9 [facility] Comment on above: Performed By: #### L MACU #### [place] [address] Hematocrit (Bld) [Volume fraction] 47.5 % High 37.0-47.0 [facility] Comment on above: Performed By: #### L MACU #### [address] [place], [place] [address] Hemoglobin (Bld) [Mass/Vol] 15.8 g/dL Normal 12.0-16.0 [facility] Comment on above: Performed By: #### L MACU #### [facility] [address] [place], [place] [address] Lymphocytes (Bld) [#/Vol] 2.05 thou/cmm Normal 1.50-3.65 [facility] Comment on above: Performed By: #### L MACU #### [facility] [address] [place], [place] [address] Lymphocytes/100 WBC (Bld) 20.5 % Normal [facility] Comment on above: Performed By: #### L MACU #### [facility] [address] [place], [place] [address] MCH (RBC) [Entitic mass] 27.7 pg Normal 27.0-31.0 [facility] Comment on above: Performed By: #### L MACU #### [facility] [address] [place] [address] MCHC (RBC) [Mass/Vol] 33.3 % Normal 32.0-36.0 [facility] Comment on above: Performed By: #### L MACU #### [facility] [address] [place] [address] MCV (RBC) [Entitic vol] 83.3 fL Normal 81.0-99.0 [facility] Comment on above: Performed By: #### L MACU #### [facility] [address] [place], [place] [address] Monocytes/100 WBC (Bld) 4.9 % Normal [facility] Comment on above: Performed By: #### L MACU #### [place] [address] Platelet mean volume (Bld) [Entitic vol] 9.9 fL Normal 7.1-10.5 [facility] Comment on above: Performed By: #### L MACU #### [place] [id number] Platelets (Bld) [#/Vol] 240 thou/cmm Normal 150-400 [facility] Comment on above: Performed By: #### L MACU #### [facility] [address] [place] [address] RBC (Bld) [#/Vol] 5.70 mil/cmm High 4.20-5.40 [facility] Comment on above: Performed By: #### L MACU #### [facility] [address] [place] [address] Seg Neutrophil 70.8 % Normal [facility] Comment on above: Performed By: #### L MACU #### [facility] [address] [place] [address] WBC (Bld) [#/Vol] 10.0 thou/cmm Normal 4.8-10.5 [facility] Comment on above: Performed By: #### L MACU #### [place] [address] Lipase Bloodon 03-17-2019 Lipase Blood 107 U/L Normal 73-393 [facility] Comment on above: Performed By: #### L MACU #### [place] [address] MDRD eGFRon 03-17-2019 GFR/1.73 sq M predicted among non-blacks MDRD (S/P/Bld) [Vol rate/Area] mL/min/{1.73_m2} Normal >60mL/min/ 1.73m2 [facility] Comment on above: Result Comment: If t he patient is , multiply the result by 1.210. Performed By: #### L MACU #### [facility] [address] [place] [address] Macroscopic Urinalysison Appearance (U) CLEAR Normal [facility] Comment on above: Performed By: #### L MACU #### [place] [address] Bilirubin Urine Negative Normal Negative [facility] Comment on above: Performed By: #### L MACU #### [place] [address] Color (U) YELLOW Normal [facility] Comment on above: Performed By: #### L MACU #### [facility] [address] [place] [address] Glucose Ql (U) 2+ Abnormal Negative [facility] Comment on above: Performed By: #### L MACU #### [place] [address] Hemoglobin,Urine Negative Normal Negative [facility] Comment on above: Performed By: #### L MACU #### [place] [address] Ketone Urine Negative Normal Negative [facility] Comment on above: Performed By: #### L MACU #### [place] [address] Leukocytes Esterase Negative Normal Negative [facility] Comment on above: Performed By: #### L MACU #### [place] [address] Nitrites Urine Negative Normal Negative [facility] Comment on above: Performed By: #### L MACU #### [place] [address] pH (U) 6.0 [pH] Normal 5.0-8.0 [facility] Comment on above: Performed By: #### L MACU #### [place] [address] Protein (U) [Mass/Vol] Negative Normal Negative [facility] Comment on above: Performed By: #### L MACU #### [place] [address] Specific [place], Ur 1.020 Normal 1.005-1 .03 0 [facility] Comment on above: Performed By: #### L MACU #### [place] [address] Urobilinogen,Ur 0.2 EU/dL Normal 0.2-1.0 [facility] Comment on above: Performed By: #### L MACU #### [place] [address] Troponin Ion 03-17-2019 Troponin I.cardiac [Mass/Vol] ng/mL Normal <=0.07 [facility] Comment on above: Performed By: #### L MACU #### [facility] [address] [place] [address] Comprehensive Panelon 2018 Creatinine [Mass/Vol] 0.57 mg/dL Normal 0.51-0.95 [facility] Comment on above: Performed By: #### L MACU #### [facility] [address] [place] [address] ALP [Catalytic activity/Vol] 118 U/L High 45-117 [facility] Comment on above: Performed By: #### L MACU #### [place] [address] Bilirubin [Mass/Vol] 0.6 mg/dL Normal 0.2-1.0 [facility] Comment on above: Performed By: #### L MACU #### [place] [address] Protein [Mass/Vol] 7.6 g/dL Normal 6.4-8.2 [facility] Comment on above: Performed By: #### L MACU #### [address] [address] ALT [Catalytic activity/Vol] 21 U/L Normal 12-78 [facility] Comment on above: Performed By: #### L MACU #### [address] [address] AST [Catalytic activity/Vol] 17 U/L Normal 15-37 [facility] Comment on above: Performed By: #### L MACU #### [facility] [address] [place], [place] [address] Urea nitrogen [Mass/Vol] 8 mg/dL Normal 7-18 [facility] Comment on above: Performed By: #### L MACU #### [place] [address] Glucose [Mass/Vol] 354 mg/dL High 70-99 [facility] Comment on above: Performed By: #### L MACU #### [address] [place], [place] [address] Albumin [Mass/Vol] 3.5 g/dL Normal 3.4-5.0 [facility] Comment on above: Performed By: #### L MACU #### [facility] [address] [place], [place] [address] Anion gap [Moles/Vol] 8 mmol/L Normal 8-16 [facility] Comment on above: Performed By: #### L MACU #### [facility] [address] [place], [place] [address] Calcium [Mass/Vol] 9.1 mg/dL Normal 8.5-10.1 [facility] Comment on above: Performed By: #### L MACU #### [facility] [address] [place] [address] CO2 [Moles/Vol] 29 mmol/L Normal 21-32 [facility] Comment on above: Performed By: #### L MACU #### [place] [address] Chloride [Moles/Vol] 102 mmol/L Normal 98-107 [facility] Comment on above: Performed By: #### L MACU #### [place] [address] Potassium [Moles/Vol] 4.8 mmol/L Normal 3.5-5.1 [facility] Comment on above: Performed By: #### L MACU #### [place] [address] Sodium [Moles/Vol] 134 mmol/L Low 136-145 [facility] Comment on above: Performed By: #### L MACU #### [place] [address] Hemogramon 03-14-2019 Erythrocyte distribution width (RBC) [Ratio] 12.8 % Normal 11.5-15.9 [facility] Comment on above: Performed By: #### L MACU #### [place] [address] Hematocrit (Bld) [Volume fraction] 46.8 % Normal 37.0-47.0 [facility] Comment on above: Performed By: #### L MACU #### [facility] [address] [place], [place] [address] Hemoglobin (Bld) [Mass/Vol] 15.7 g/dL Normal 12.0-16.0 [facility] Comment on above: Performed By: #### L MACU #### [facility] [address] [place], [place] [address] MCH (RBC) [Entitic mass] 27.8 pg Normal 27.0-31.0 [facility] Comment on above: Performed By: #### L MACU #### [facility] [address] [place] [address] MCHC (RBC) [Mass/Vol] 33.5 % Normal 32.0-36.0 [facility] Comment on above: Performed By: #### L MACU #### [facility] [address] [place] [address] MCV (RBC) [Entitic vol] 83.0 fL Normal 81.0-99.0 [facility] Comment on above: Performed By: #### L MACU #### [facility] [address] [place] [address] Platelet mean volume (Bld) [Entitic vol] 9.9 fL Normal 7.1-10.5 [facility] Comment on above: Performed By: #### L MACU #### [facility] [address] [place] [address] Platelets (Bld) [#/Vol] 256 thou/cmm Normal 150-400 [facility] Comment on above: Performed By: #### L MACU #### [facility] [address] [place], [place] [address] RBC (Bld) [#/Vol] 5.64 mil/cmm High 4.20-5.40 [facility] Comment on above: Performed By: #### L MACU #### [facility] [address] [place] [address] WBC (Bld) [#/Vol] 10.6 thou/cmm High 4.8-10.5 [facility] Comment on above: Performed By: #### L MACU #### [facility] [address] [place] [address] Lipase Bloodon 03-14-2019 Lipase Blood 104 U/L Normal 73-393 [facility] Comment on above: Performed By: #### L MACU #### [facility] [address] [place] [address] MDRD GFRon 03-14-2019 GFR/1.73 sq M predicted among non-blacks MDRD (S/P/Bld) [Vol rate/Area] mL/min/{1.73_m2} Normal >60mL/min/ 1.73m2 [facility] Comment on above: Result Comment: If t he patient is , multiply the result by 1.210. Performed By: #### L MACU #### [place] [address] Macroscopic Urinalysison Appearance (U) CLEAR Normal [facility] Comment on above: Performed By: #### L MACU #### [place] [address] Bilirubin Urine Negative Normal Negative [facility] Comment on above: Performed By: #### L MACU #### [place] [address] Color (U) YELLOW Normal [facility] Comment on above: Performed By: #### L MACU #### [place] [address] Glucose Ql (U) 2+ Abnormal Negative [facility] Comment on above: Performed By: #### L MACU #### [place] [address] Hemoglobin,Urine Negative Normal Negative [facility] Comment on above: Performed By: #### L MACU #### [place] [address] Ketone Urine Negative Normal Negative [facility] Comment on above: Performed By: #### L MACU #### [place] [address] Leukocytes Esterase Negative Normal Negative [facility] Comment on above: Performed By: #### L MACU #### [facility] [address] [place] [address] Nitrites Urine Negative Normal Negative [facility] Comment on above: Performed By: #### L MACU #### [facility] [address] [place] [address] pH (U) 5.5 [pH] Normal 5.0-8.0 [facility] Comment on above: Performed By: #### L MACU #### [facility] [address] [place] [address] Protein (U) [Mass/Vol] Negative Normal Negative [facility] Comment on above: Performed By: #### L MACU #### [place] [address] Specific [place], Ur 1.015 Normal 1.005-1 .03 0 [facility] Comment on above: Performed By: #### L MACU #### [place] [address] Urobilinogen,Ur 0.2 EU/dL Normal 0.2-1.0 [facility] Comment on above: Performed By: #### L MACU #### [place] [address] Urine HCG, Qual.on 9 Beta HCG ( test) Ql (U) Negative Normal Negative [facility] Comment on above: Performed By: #### L MACU #### [place] [address] Comprehensive Panelon 2018 Albumin [Mass/Vol] 3.4 g/dL Normal 3.4-5.0 [facility] Comment on above: Performed By: #### L MACU #### [place] [address] ALP [Catalytic activity/Vol] 109 U/L Normal 46-116 [facility] Comment on above: Performed By: #### L MACU #### [place] [address] ALT-SGPT Blood 20 U/L Normal 14-63 [facility] Comment on above: Performed By: #### L MACU #### [facility] [address] [place], [place] [address] Anion gap [Moles/Vol] 15 mmol/L Normal 8-20 [facility] Comment on above: Performed By: #### L MACU #### [facility] [address] [place], [place] [address] AST-SGOT Blood 19 U/L Normal 15-37 [facility] Comment on above: Performed By: #### L MACU #### [facility] [address] [place], [place] [address] Bilirubin Ql (U) 0.8 mg/dL Normal 0.2-1.0 [facility] Comment on above: Performed By: #### L MACU #### [facility] [address] [place], [place] [address] Calcium [Mass/Vol] 9.0 mg/dL Normal 8.5-10.1 [facility] Comment on above: Performed By: #### L MACU #### [facility] 1 [place] [address] CO2 Blood 27 mEq/L Normal 21-32 [facility] Comment on above: Performed By: #### L MACU #### [facility] [address] [place], [place] [address] Creatinine [Mass/Vol] 0.62 mg/dL Normal 0.51-0.95 [facility] Comment on above: Performed By: #### L MACU #### [facility] [address] [place], [place] [address] Glucose [Mass/Vol] 343 mg/dL High 70-99 [facility] Comment on above: Performed By: #### L MACU #### [facility] [address] [place], [place] [address] Protein [Mass/Vol] 7.5 g/dL Normal 6.4-8.2 [facility] Comment on above: Performed By: #### L MACU #### [place] [address] Urea nitrogen [Mass/Vol] 3 mg/dL Low 7-25 [facility] Comment on above: Performed By: #### L MACU #### [facility] [address] [place], [place] [address] Urea nitrogen/Creatinine [Mass ratio] 5 mg/mg Low 10-20 [facility] Comment on above: Performed By: #### L MACU #### [facility] [address] [place], [place] [address] Chloride [Moles/Vol] 100 mmol/L Normal 98-109 [facility] Comment on above: Result Comment: Test ing performed on an [employer] i-STAT. Performed By: #### L MACU #### [facility] [address] [place], [place] [address] Potassium [Moles/Vol] 3.7 mmol/L Normal 3.5-4.9 [facility] Comment on above: Result Comment: Test ing performed on an [employer] i-STAT. Performed By: #### L MACU #### [facility] [address] [place], [place] [address] Sodium [Moles/Vol] 138 mmol/L Normal 138-146 [facility] Comment on above: Result Comment: Test ing performed on an [employer] i-STAT. Performed By: #### L MACU #### [facility] [address] [place], [place] [address] D-Dimer Quantitativeon 10-27 D-Dimer Quantitative 310 ng/mL(FEU) Normal <450 [facility] Comment on above: Result Comment: 500 ng/mL FEU is the D-dimer cutoff to exclude DVT (deep vein thrombosis)and PE (pulmonary embolism)in patients with a low pre-test probability. Supplemental Comment: In patients over 50 years with a low Pre-test probability for DVT and/or PE, an age-adjusted D-dimer cutoff can be calculated as [age X 10] ng/mL FEU. For example, a patient of 88 years would have an age-adjusted D-dimer of 880 ng/mL FEU. For patients with a suspected DVT, a D-dimer level below 500 ng/mL FEU has a negative predictive value of >=99.0%, a sensitivity of >=97.0% and a specificity of >=35.8%. Performed By: #### L MACU #### [facility] [address] [place] [address] Hemogramon 10-27-2018 Erythrocyte distribution width (RBC) [Ratio] 12.5 % Normal 11.5-15.9 [facility] Comment on above: Performed By: #### L MACU #### [facility] [address] [place] [address] Hematocrit (Bld) [Volume fraction] 46.1 % Normal 37.0-47.0 [facility] Comment on above: Performed By: #### L MACU #### [facility] [address] [place] [address] Hemoglobin (Bld) [Mass/Vol] 15.8 g/dL Normal 12.0-16.0 [facility] Comment on above: Performed By: #### L MACU #### [place] [address] MCH (RBC) [Entitic mass] 27.8 pg Normal 27.0-31.0 [facility] Comment on above: Performed By: #### L MACU #### [facility] [address] [place] [address] MCHC (RBC) [Mass/Vol] 34.3 % Normal 32.0-36.0 [facility] Comment on above: Performed By: #### L MACU #### [place] [address] MCV (RBC) [Entitic vol] 81.0 fL Normal 81.0-99.0 [facility] Comment on above: Performed By: #### L MACU #### [facility] [address] [place] [address] Platelet mean volume (Bld) [Entitic vol] 10.0 fL Normal 7.1-10.5 [facility] Comment on above: Performed By: #### L MACU #### [facility] [address] [place] [address] Platelets (Bld) [#/Vol] 223 thou/cmm Normal 150-400 [facility] Comment on above: Performed By: #### L MACU #### [facility] [address] [place], [place] [address] RBC (Bld) [#/Vol] 5.69 mil/cmm High 4.20-5.40 [facility] Comment on above: Performed By: #### L MACU #### [facility] [address] [place], [place] [address] WBC (Bld) [#/Vol] 10.0 thou/cmm Normal 4.8-10.5 [facility] Comment on above: Performed By: #### L MACU #### [place] [address] MDRD eGFRon 10-27-2018 GFR/1.73 sq M predicted among non-blacks MDRD (S/P/Bld) [Vol rate/Area] mL/min/{1.73_m2} Normal >60mL/min/ 1.73m2 [facility] Comment on above: Result Comment: If t he patient is , multiply the result by 1.210. Performed By: #### L MACU #### [place] [address] N-terminal Pro-BNPon 019 Natriuretic peptide B (Bld) [Mass/Vol] 1340.0 pg/mL Normal [facility] Comment on above: Result Comment: Note new reference range: Normal Reference Range: Patients <75 yrs old <125pg/ml Patients >=75 yrs old <450 pg/ml Performed By: #### L MACU #### [facility] [address] [place] [address] Troponin Ion 10-27-2018 Troponin I.cardiac [Mass/Vol] ng/mL Normal <=0.07 [facility] Comment on above: Performed By: #### L MACU #### [place] [address] Troponin I.cardiac [Mass/Vol] ng/mL Normal <=0.07 [facility] Comment on above: Performed By: #### L MACU #### [place] [address] Troponin Ion 10-21-2018 Troponin I.cardiac [Mass/Vol] ng/mL Normal <=0.07 [facility] Comment on above: Performed By: #### L CBCD #### [facility] [address] [place], [place] [address] Basic Panelon 10-20-2018 Anion gap [Moles/Vol] 17 mmol/L Normal 8-20 [facility] Comment on above: Performed By: #### L CBCD #### [facility] [address] [place], [place] [address] Calcium [Mass/Vol] 9.7 mg/dL Normal 8.5-10.1 [facility] Comment on above: Performed By: #### L CBCD #### [address] [address] CO2 Blood 26 mEq/L Normal 21-32 [facility] Comment on above: Performed By: #### L CBCD #### [address] [address] Creatinine [Mass/Vol] 0.77 mg/dL Normal 0.51-0.95 [facility] Comment on above: Performed By: #### L CBCD #### [address] [address] Glucose [Mass/Vol] 328 mg/dL High 70-99 [facility] Comment on above: Performed By: #### L CBCD #### [address] [address] Urea nitrogen [Mass/Vol] 6 mg/dL Low 7-25 [facility] Comment on above: Performed By: #### L CBCD #### [address] [address] Urea nitrogen/Creatinine [Mass ratio] 8 mg/mg Low 10-20 [facility] Comment on above: Performed By: #### L CBCD #### [address] [address] Chloride [Moles/Vol] 100 mmol/L Normal 98-109 [facility] Comment on above: Result Comment: Test ing performed on an [employer] i-STAT. Performed By: #### L CBCD #### [facility] [address] [place], [place] [address] Potassium [Moles/Vol] 3.9 mmol/L Normal 3.5-4.9 [facility] Comment on above: Result Comment: Test ing performed on an [employer] i-STAT. Performed By: #### L CBCD #### [facility] [address] [place], [place] [address] Sodium [Moles/Vol] 139 mmol/L Normal 138-146 [facility] Comment on above: Result Comment: Test ing performed on an [employer] i-STAT. Performed By: #### L CBCD #### [address] [address] D-Dimer Quantitativeon 10-20 D-Dimer Quantitative 310 ng/mL(FEU) Normal <450 [facility] Comment on above: Result Comment: 500 ng/mL FEU is the D-dimer cutoff to exclude DVT (deep vein thrombosis)and PE (pulmonary embolism)in patients with a low pre-test probability. Supplemental Comment: In patients over 50 years with a low Pre-test probability for DVT and/or PE, an age-adjusted D-dimer cutoff can be calculated as [age X 10] ng/mL FEU. For example, a patient of 88 years would have an age-adjusted D-dimer of 880 ng/mL FEU. For patients with a suspected DVT, a D-dimer level below 500 ng/mL FEU has a negative predictive value of >=99.0%, a sensitivity of >=97.0% and a specificity of >=35.8%. Performed By: #### L CBCD #### [facility] [address] [place], [place] [address] Glucose Meteron 10-20-2018 Glucose [Mass/Vol] 284 mg/dL High 70-99 [facility] Comment on above: Result Comment: MD Mccracken OTIFIED Testing performed at [address] [address] Performed By: #### L CBCD #### [address] [address] Hemogram/Manual Diffon 10-20 Abs. Baso 0.00 thou/cmm Normal 0.00-0.08 [facility] Comment on above: Performed By: #### L CBCD #### [facility] [address] [place] [address] Abs. Eosin 0.00 thou/cmm Normal 0.00-0.41 [facility] Comment on above: Performed By: #### L CBCD #### [facility] [address] [place] [address] Abs. Lymph 3.17 thou/cmm Normal 1.50-3.65 [facility] Comment on above: Performed By: #### L CBCD #### [facility] [address] [place] [address] Abs. Erie 0.98 thou/cmm Normal 0.20-1.00 [facility] Comment on above: Performed By: #### L CBCD #### [facility] [address] [place] [address] Abs. Neut (ANC) 8.05 thou/cmm High 3.00-5.67 [facility] Comment on above: Performed By: #### L CBCD #### [facility] [address] [place] [address] Atypical Lymph 4.0 % Normal [facility] Comment on above: Performed By: #### L CBCD #### [facility] [address] [place] [address] Basophil 0.0 % Normal [facility] Comment on above: Performed By: #### L CBCD #### [facility] [address] [place] [address] Eosinophil 0.0 % Normal [facility] Comment on above: Performed By: #### L CBCD #### [facility] [address] [place] [address] Lymphocyte 22.0 % Normal [facility] Comment on above: Performed By: #### L CBCD #### [facility] [address] [place] [address] Monocyte 8.0 % Normal [facility] Comment on above: Performed By: #### L CBCD #### [facility] [address] [place] [address] Platelets (Bld) [#/Vol] Normal Normal [facility] Comment on above: Performed By: #### L CBCD #### [facility] [address] [place] [address] RBC morphology finding Nom (Bld) Normal Normal [facility] Comment on above: Performed By: #### L CBCD #### [facility] [address] [place] [address] Seg Neutrophil 66.0 % Normal [facility] Comment on above: Performed By: #### L CBCD #### [facility] [address] [place] [address] Diff Type Manual Diff Normal [facility] Comment on above: Performed By: #### L CBCD #### [place] [address] Erythrocyte distribution width (RBC) [Ratio] 12.9 % Normal 11.5-15.9 [facility] Comment on above: Performed By: #### L CBCD #### [facility] [address] [place] [address] Hematocrit (Bld) [Volume fraction] 47.6 % High 37.0-47.0 [facility] Comment on above: Performed By: #### L CBCD #### [place] [address] Hemoglobin (Bld) [Mass/Vol] 16.1 g/dL High 12.0-16.0 [facility] Comment on above: Performed By: #### L CBCD #### [facility] [address] [place] [address] MCH (RBC) [Entitic mass] 27.8 pg Normal 27.0-31.0 [facility] Comment on above: Performed By: #### L CBCD #### [facility] [address] [place] [address] MCHC (RBC) [Mass/Vol] 33.8 % Normal 32.0-36.0 [facility] Comment on above: Performed By: #### L CBCD #### [place] [address] MCV (RBC) [Entitic vol] 82.2 fl Normal 81.0-99.0 [facility] Comment on above: Performed By: #### L CBCD #### [facility] [address] [place] [address] Platelet mean volume (Bld) [Entitic vol] 9.9 fl Normal 7.1-10.5 [facility] Comment on above: Performed By: #### L CBCD #### [place] [address] Platelets (Bld) [#/Vol] 250 thou/cmm Normal 150-400 [facility] Comment on above: Performed By: #### L CBCD #### [place] [address] RBC (Bld) [#/Vol] 5.79 mil/cmm High 4.20-5.40 [facility] Comment on above: Performed By: #### L CBCD #### [place] [address] WBC (Bld) [#/Vol] 12.2 thou/cmm High 4.8-10.5 [facility] Comment on above: Performed By: #### L CBCD #### [place] [address] MDRD eGFRon 10-20-2018 GFR/1.73 sq M predicted among non-blacks MDRD (S/P/Bld) [Vol rate/Area] mL/min/{1.73_m2} Normal >60mL/min/ 1.73m2 [facility] Comment on above: Result Comment: If t he patient is , multiply the result by 1.210. Performed By: #### L CBCD #### [place] [address] N-terminal Pro-BNPon 019 Natriuretic peptide B (Bld) [Mass/Vol] 751.0 pg/mL Normal [facility] Comment on above: Result Comment: Note new reference range: Normal Reference Range: Patients <75 yrs old <125pg/ml Patients >=75 yrs old <450 pg/ml Performed By: #### L CBCD #### [facility] [address] [place] [address] Troponin Ion 10-20-2018 Troponin I.cardiac [Mass/Vol] ng/mL Normal <=0.07 [facility] Comment on above: Performed By: #### L CBCD #### [facility] [address] [place] [address] Comprehensive Panelon 2018 Albumin [Mass/Vol] 3.1 g/dL Low 3.4-5.0 [facility] Comment on above: Performed By: #### L P14 ####[place] [address] ALP [Catalytic activity/Vol] 93 U/L Normal 46-116 [facility] Comment on above: Performed By: #### L P14 ####[place] [address] ALT-SGPT Blood 22 U/L Normal 14-63 [facility] Comment on above: Performed By: #### L P14 ####[place] [address] Anion gap [Moles/Vol] 13 mmol/L Normal 8-20 [facility] Comment on above: Performed By: #### L P14 ####[place] [address] AST-SGOT Blood 20 U/L Normal 15-37 [facility] Comment on above: Performed By: #### L P14 ####[place] [address] Bilirubin Ql (U) 0.8 mg/dL Normal 0.2-1.0 [facility] Comment on above: Performed By: #### L P14 ####[place] [address] Calcium [Mass/Vol] 9.2 mg/dL Normal 8.5-10.1 [facility] Comment on above: Performed By: #### L P14 ####[place] [address] CO2 Blood 31 mEq/L Normal 21-32 [facility] Comment on above: Performed By: #### L P14 ####[facility] [place], [place] [address] Creatinine [Mass/Vol] 0.73 mg/dL Normal 0.51-0.95 [facility] Comment on above: Performed By: #### L P14 ####[address] [address] Glucose [Mass/Vol] 228 mg/dL High 70-99 [facility] Comment on above: Performed By: #### L P14 ####[address] [address] Protein [Mass/Vol] 7.0 g/dL Normal 6.4-8.2 [facility] Comment on above: Performed By: #### L P14 ####[address] [address] Urea nitrogen [Mass/Vol] 6 mg/dL Low 7-25 [facility] Comment on above: Performed By: #### L P14 ####[address] [address] Urea nitrogen/Creatinine [Mass ratio] 8 mg/mg Low 10-20 [facility] Comment on above: Performed By: #### L P14 ####[address] [address] Chloride [Moles/Vol] 98 mmol/L Normal 98-109 [facility] Comment on above: Result Comment: Test ing performed on an [employer] i-STAT. Performed By: #### L P14 ####[address] [address] Potassium [Moles/Vol] 4.2 mmol/L Normal 3.5-4.9 [facility] Comment on above: Result Comment: Test ing performed on an [employer] i-STAT. Performed By: #### L P14 ####[address] [address] Sodium [Moles/Vol] 138 mmol/L Normal 138-146 [facility] Comment on above: Result Comment: Test ing performed on an [employer] i-STAT. Performed By: #### L P14 ####[place] [address] Hemogramon 10-04-2018 Erythrocyte distribution width (RBC) [Ratio] 12.6 % Normal 11.5-15.9 [facility] Comment on above: Performed By: #### L CBC ####[address] [address] Hematocrit (Bld) [Volume fraction] 46.2 % Normal 37.0-47.0 [facility] Comment on above: Performed By: #### L CBC ####[place] [address] Hemoglobin (Bld) [Mass/Vol] 15.3 g/dL Normal 12.0-16.0 [facility] Comment on above: Performed By: #### L CBC ####[place] [address] MCH (RBC) [Entitic mass] 27.5 pg Normal 27.0-31.0 [facility] Comment on above: Performed By: #### L CBC ####[place] [address] MCHC (RBC) [Mass/Vol] 33.1 % Normal 32.0-36.0 [facility] Comment on above: Performed By: #### L CBC ####[place] [address] MCV (RBC) [Entitic vol] 83.1 fL Normal 81.0-99.0 [facility] Comment on above: Performed By: #### L CBC ####[address] [address] Platelet mean volume (Bld) [Entitic vol] 9.7 fL Normal 7.1-10.5 [facility] Comment on above: Performed By: #### L CBC ####[place] [address] Platelets (Bld) [#/Vol] 261 thou/cmm Normal 150-400 [facility] Comment on above: Performed By: #### L CBC ####[address] [place], [place] [address] RBC (Bld) [#/Vol] 5.56 mil/cmm High 4.20-5.40 [facility] Comment on above: Performed By: #### L CBC ####[facility] [place], [place] [address] WBC (Bld) [#/Vol] 11.9 thou/cmm High 4.8-10.5 [facility] Comment on above: Performed By: #### L CBC ####[facility] [place] [address] Lactic acidon 10-04-2018 Lactate [Moles/Vol] 1.2 mmol/L Normal 0.4-2.0 [facility] Comment on above: Performed By: #### L CBCD #### [place] [address] Lipase Bloodon 10-04-2018 Lipase Blood 85 U/L Normal 73-393 [facility] Comment on above: Performed By: #### L LIP ####[place] [address] MDRD eGFRon 10-04-2018 GFR/1.73 sq M predicted among non-blacks MDRD (S/P/Bld) [Vol rate/Area] mL/min/{1.73_m2} Normal >60mL/min/ 1.73m2 [facility] Comment on above: Result Comment: If t he patient is , multiply the result by 1.210. Performed By: #### L GFR ####[facility] [place] [address] Macroscopic Urinalysison Appearance (U) CLEAR Normal [facility] Comment on above: Performed By: #### L CBCD #### [place] [address] Bilirubin Urine Negative Normal Negative [facility] Comment on above: Performed By: #### L CBCD #### [place] [address] Color (U) YELLOW Normal [facility] Comment on above: Performed By: #### L CBCD #### [facility] [address] [place] [address] Glucose Ql (U) TRACE Abnormal Negative [facility] Comment on above: Performed By: #### L CBCD #### [facility] [address] [place] [address] Hemoglobin,Urine Negative Normal Negative [facility] Comment on above: Performed By: #### L CBCD #### [place] [address] Ketone Urine Negative Normal Negative [facility] Comment on above: Performed By: #### L CBCD #### [place] [address] Leukocytes Esterase Negative Normal Negative [facility] Comment on above: Performed By: #### L CBCD #### [place] [address] Nitrites Urine Negative Normal Negative [facility] Comment on above: Performed By: #### L CBCD #### [place] [address] pH (U) 7.0 [pH] Normal 5.0-8.0 [facility] Comment on above: Performed By: #### L CBCD #### [place] [address] Protein (U) [Mass/Vol] Negative Normal Negative [facility] Comment on above: Performed By: #### L CBCD #### [place] [address] Specific [place], Ur 1.015 Normal 1.005-1 .03 0 [facility] Comment on above: Performed By: #### L CBCD #### [place] [address] Urobilinogen,Ur 0.2 EU/dL Normal 0.2-1.0 [facility] Comment on above: Performed By: #### L CBCD #### [place] [address] Troponin Ion 10-04-2018 Troponin I.cardiac [Mass/Vol] ng/mL Normal <=0.07 [facility] Comment on above: Performed By: #### L TRP ####[facility] [place], [place] [address] Urine HCG, Qual.on 9 Beta HCG ( test) Ql (U) Negative Normal Negative [facility] Comment on above: Performed By: #### L HCG2 ####[facility] [place], [place] [address] Basic Panelon 09-29-2018 Anion gap [Moles/Vol] 14 mmol/L Normal 8-20 [facility] Comment on above: Performed By: #### L GFR #### [address] [address] Calcium [Mass/Vol] 8.9 mg/dL Normal 8.5-10.1 [facility] Comment on above: Performed By: #### L GFR #### [place] [address] CO2 Blood 28 mEq/L Normal 21-32 [facility] Comment on above: Performed By: #### L GFR #### [address] [address] Creatinine [Mass/Vol] 0.60 mg/dL Normal 0.51-0.95 [facility] Comment on above: Performed By: #### L GFR #### [address] [address] Glucose [Mass/Vol] 154 mg/dL High 70-99 [facility] Comment on above: Performed By: #### L GFR #### [facility] [address] [place], [place] [address] Urea nitrogen [Mass/Vol] 5 mg/dL Low 7-25 [facility] Comment on above: Performed By: #### L GFR #### [address] [address] Urea nitrogen/Creatinine [Mass ratio] 8 mg/mg Low 10-20 [facility] Comment on above: Performed By: #### L GFR #### [address] [address] Chloride [Moles/Vol] 101 mmol/L Normal 98-109 [facility] Comment on above: Result Comment: Test ing performed on an [employer]STAT. Performed By: #### L GFR #### [facility] [address] [place], [place] [address] Potassium [Moles/Vol] 3.9 mmol/L Normal 3.5-4.9 [facility] Comment on above: Result Comment: Test ing performed on an [employer]STAT. Performed By: #### L GFR #### [facility] [address] [place], [place] [address] Sodium [Moles/Vol] 139 mmol/L Normal 138-146 [facility] Comment on above: Result Comment: Test ing performed on an [employer]STAT. Performed By: #### L GFR #### [place] [address] D-Dimer Quantitativeon 09-29 D-Dimer Quantitative 336 ng/mL(FEU) Normal <450 [facility] Comment on above: Result Comment: 500 ng/mL FEU is the D-dimer cutoff to exclude DVT (deep vein thrombosis)and PE (pulmonary embolism)in patients with a low pre-test probability. Supplemental Comment: In patients over 50 years with a low Pre-test probability for DVT and/or PE, an age-adjusted D-dimer cutoff can be calculated as [age X 10] ng/mL FEU. For example, a patient of 88 years would have an age-adjusted D-dimer of 880 ng/mL FEU. For patients with a suspected DVT, a D-dimer level below 500 ng/mL FEU has a negative predictive value of >=99.0%, a sensitivity of >=97.0% and a specificity of >=35.8%. Performed By: #### L DMR ####[facility] [place], [place] [address] Hemogramon 09-29-2018 Erythrocyte distribution width (RBC) [Ratio] 12.8 % Normal 11.5-15.9 [facility] Comment on above: Performed By: #### L GFR #### [facility] [address] [place] [address] Hematocrit (Bld) [Volume fraction] 46.3 % Normal 37.0-47.0 [facility] Comment on above: Performed By: #### L GFR #### [facility] [address] [place], [place] [address] Hemoglobin (Bld) [Mass/Vol] 15.7 g/dL Normal 12.0-16.0 [facility] Comment on above: Performed By: #### L GFR #### [facility] [address] [place], [place] [address] MCH (RBC) [Entitic mass] 27.8 pg Normal 27.0-31.0 [facility] Comment on above: Performed By: #### L GFR #### [facility] [address] [place] [address] MCHC (RBC) [Mass/Vol] 33.9 % Normal 32.0-36.0 [facility] Comment on above: Performed By: #### L GFR #### [place] [address] MCV (RBC) [Entitic vol] 81.9 fL Normal 81.0-99.0 [facility] [place] Comment on above: Performed By: #### L GFR #### [facility] [address] [place] [address] Platelet mean volume (Bld) [Entitic vol] 10.0 fL Normal 7.1-10.5 [facility] Comment on above: Performed By: #### L GFR #### [facility] [address] [place], [place] [address] Platelets (Bld) [#/Vol] 231 thou/cmm Normal 150-400 [facility] Comment on above: Performed By: #### L GFR #### [facility] [address] [place], [place] [address] RBC (Bld) [#/Vol] 5.65 mil/cmm High 4.20-5.40 [facility] Comment on above: Performed By: #### L GFR #### [address] [address] WBC (Bld) [#/Vol] 10.8 thou/cmm High 4.8-10.5 [facility] Comment on above: Performed By: #### L GFR #### [facility] [address] [place], [place] [address] MDRD eGFRon 09-29-2018 GFR/1.73 sq M predicted among non-blacks MDRD (S/P/Bld) [Vol rate/Area] mL/min/{1.73_m2} Normal >60mL/min/ 1.73m2 [facility] Comment on above: Result Comment: If t he patient is , multiply the result by 1.210. Performed By: #### L GFR ####[place] [address] Troponin Ion 09-29-2018 Troponin I.cardiac [Mass/Vol] ng/mL Normal <=0.07 [facility] Comment on above: Performed By: #### L TRP ####[place] [address] Troponin I.cardiac [Mass/Vol] ng/mL Normal <=0.07 [facility] Comment on above: Performed By: #### L TRP ####[place] [address] Basic Panelon 09-25-2018 Creatinine [Mass/Vol] 0.64 mg/dL Normal 0.51-0.95 [facility] Comment on above: Performed By: #### L GFR #### [place] [address] Anion gap [Moles/Vol] 10 mmol/L Normal 8-16 [facility] Comment on above: Performed By: #### L GFR #### [place] [address] CO2 [Moles/Vol] 26 mmol/L Normal 21-32 [facility] Comment on above: Performed By: #### L GFR #### [place] [address] Glucose [Mass/Vol] 87 mg/dL Normal 70-99 [facility] Comment on above: Performed By: #### L GFR #### [place] [address] Urea nitrogen [Mass/Vol] 13 mg/dL Normal 7-18 [facility] Comment on above: Performed By: #### L GFR #### [facility] [address] [place] [address] Calcium [Mass/Vol] 8.9 mg/dL Normal 8.5-10.1 [facility] Comment on above: Performed By: #### L GFR #### [facility] [address] [place] [address] Chloride [Moles/Vol] 104 mmol/L Normal 98-107 [facility] Comment on above: Performed By: #### L GFR #### [place] [address] Potassium [Moles/Vol] 3.6 mmol/L Normal 3.5-5.1 [facility] Comment on above: Performed By: #### L GFR #### [place] [address] Sodium [Moles/Vol] 136 mmol/L Normal 136-145 [facility] Comment on above: Performed By: #### L GFR #### [place] [address] Glucose Meteron 09-25-2018 Glucose [Mass/Vol] 205 mg/dL High 70-99 [facility] Comment on above: Result Comment: CHAYITO MÉNDEZ Performed By: #### L P14 #### [place] [address] Hemogram/Diffon 09-25-2018 Abs Immature Grans 0.04 thou/cmm Normal 0.00-0.05 [facility] Comment on above: Performed By: #### L GFR #### [place] [address] Abs. Baso 0.06 thou/cmm Normal 0.01-0.08 [facility] Comment on above: Result Comment: Smea r scanned; tech agrees with automated differential Performed By: #### L GFR #### [place] [address] Abs. Erie 0.72 thou/cmm High 0.27-0.70 [facility] Comment on above: Performed By: #### L GFR #### [facility] [address] [place], [place] [address] Abs. Neut (ANC) 7.66 thou/cmm High 1.56-6.13 [facility] Comment on above: Performed By: #### L GFR #### [facility] [address] [place], [place] [address] Basophils/100 WBC (Bld) 0.5 % Normal [facility] Comment on above: Performed By: #### L GFR #### [facility] [address] [place], [place] [address] Eosinophils (Bld) [#/Vol] 0.13 thou/cmm Normal 0.00-0.31 [facility] Comment on above: Performed By: #### L GFR #### [address] [address] Eosinophils/100 WBC (Bld) 1.0 % Normal [facility] Comment on above: Performed By: #### L GFR #### [address] [address] Immature Grans 0.30 % Normal [facility] Comment on above: Performed By: #### L GFR #### [address] [address] Lymphocytes (Bld) [#/Vol] 4.07 thou/cmm High 1.18-3.74 [facility] Comment on above: Performed By: #### L GFR #### [facility] [address] [place], [place] [address] Lymphocytes/100 WBC (Bld) 32.1 % Normal [facility] Comment on above: Performed By: #### L GFR #### [facility] [address] [place], [place] [address] Monocytes/100 WBC (Bld) 5.7 % Normal [facility] [place] Comment on above: Performed By: #### L GFR #### [address] [address] Seg Neutrophil 60.4 % Normal [facility] [employer] Comment on above: Performed By: #### L GFR #### [facility] [address] [place], [place] [address] Erythrocyte distribution width (RBC) [Ratio] 12.5 % Normal 11.7-14.4 [facility] Comment on above: Performed By: #### L GFR #### [facility] [address] [place], [place] [address] Hematocrit (Bld) [Volume fraction] 49.4 % High 34.1-44.9 [facility] Comment on above: Performed By: #### L GFR #### [facility] [address] [place], [place] [address] Hemoglobin (Bld) [Mass/Vol] 16.6 g/dL High 11.2-15.7 [facility] Comment on above: Performed By: #### L GFR #### [facility] [address] [place] [address] MCH (RBC) [Entitic mass] 27.8 pg Normal 25.6-32.2 [facility] Comment on above: Performed By: #### L GFR #### [facility] [address] [place] [address] MCHC (RBC) [Mass/Vol] 33.6 % Normal 31.6-34.8 [facility] Comment on above: Performed By: #### L GFR #### [facility] [address] [place] [address] MCV (RBC) [Entitic vol] 82.7 fL Normal 79.4-94.8 [facility] [place] Comment on above: Performed By: #### L GFR #### [facility] [address] [place], [place] [address] Platelet mean volume (Bld) [Entitic vol] 9.8 fL Normal 9.4-12.3 [facility] Comment on above: Performed By: #### L GFR #### [facility] [address] [place], [place] [address] Platelets (Bld) [#/Vol] 241 thou/cmm Normal 182-369 [facility] Comment on above: Performed By: #### L GFR #### [place] [address] RBC (Bld) [#/Vol] 5.97 mil/cmm High 3.93-5.22 [facility] Comment on above: Performed By: #### L GFR #### [facility] [address] [place] [address] RDW SD 37.4 fl Normal 36.4-46.3 [facility] Comment on above: Performed By: #### L GFR #### [facility] [address] [place] [address] WBC (Bld) [#/Vol] 12.69 thou/cmm High 3.98-10.04 [facility] Comment on above: Performed By: #### L GFR #### [place] [address] MDRD GFRon 09-25-2018 GFR/1.73 sq M predicted among non-blacks MDRD (S/P/Bld) [Vol rate/Area] mL/min/{1.73_m2} Normal >60mL/min/ 1.73m2 [facility] Comment on above: Result Comment: If t he patient is , multiply the result by 1.210. Performed By: #### L GFR #### [place] [address] Urinalysis, reflexon 019 Reflex Comment see below Normal [facility] Comment on above: Result Comment: Refl ex to culture is not indicated based on established laboratory criteria. Performed By: #### L GFR #### [place] [address] Bacteria LM.HPF (Urine sed) [#/Area] NONE Normal None [facility] Comment on above: Performed By: #### L GFR #### [facility] [address] [place] [address] Ep Cells Urine 13.9 /hpf High 0.0-5.0 [facility] Comment on above: Performed By: #### L GFR #### [place] [address] Hyaline Cast 2.4 /lpf High 0.0-1.0 [facility] Comment on above: Performed By: #### L GFR #### [facility] [address] [place] [address] RBC LM.HPF (Urine sed) [#/Area] 1.3 /[HPF] Normal 0.0-5.0 [facility] Comment on above: Performed By: #### L GFR #### [place] [address] WBC, reflex 2.90 /hpf Normal 0.00-5.00 [facility] Comment on above: Performed By: #### L GFR #### [place] [address] Appearance (U) CLOUDY Normal [facility] Comment on above: Performed By: #### L GFR #### [place] [address] Bilirubin (U) [Mass/Vol] see below Abnormal Negative [facility] Comment on above: Result Comment: Dete cted (Unable to confirm). Performed By: #### L GFR #### [place] [address] Color (U) DK YELLOW Normal [facility] Comment on above: Performed By: #### L GFR #### [place] [address] Glucose Ql (U) 250 mg/dL Abnormal Negative [facility] Comment on above: Performed By: #### L GFR #### [place] [address] Hemoglobin,Urine Negative Normal Negative [facility] Comment on above: Performed By: #### L GFR #### [place] [address] Ketone Urine TRACE Abnormal Negative [facility] Comment on above: Performed By: #### L GFR #### [place] [address] Leukocyte esterase Test strip Ql (U) TRACE Abnormal Negative [facility] [employer] [facility] Comment on above: Performed By: #### L GFR #### [place] [address] Nitrite reflex Negative Normal Negative [facility] Comment on above: Performed By: #### L GFR #### [facility] [address] [place] [address] pH (U) 6.0 [pH] Normal 5.0-8.0 [facility] Comment on above: Performed By: #### L GFR #### [facility] [address] [place], [place] [address] Protein (U) [Mass/Vol] TRACE Abnormal Negative [facility] Comment on above: Performed By: #### L GFR #### [facility] [address] [place] [address] Specific [place], Ur 1.030 Normal 1.005-1 .03 0 [facility] Comment on above: Performed By: #### L GFR #### [facility] [address] [place] [address] Urobilinogen,Ur 1.0 EU/dL Normal 0.0-1.0 [facility] Comment on above: Performed By: #### L GFR #### [place] [address] Comprehensive Panelon 2018 ALP [Catalytic activity/Vol] 114 U/L Normal 46-116 [facility] Comment on above: Performed By: #### L GFR #### [facility] [address] [place], [place] [address] Bilirubin [Mass/Vol] 1.4 mg/dL High 0.2-1.0 [facility] Comment on above: Performed By: #### L GFR #### [facility] [address] [place] [address] AST [Catalytic activity/Vol] 19 U/L Normal 9-37 [facility] Comment on above: Performed By: #### L GFR #### [facility] [address] [place], [place] [address] Creatinine [Mass/Vol] 0.56 mg/dL Normal 0.51-0.95 [facility] Comment on above: Performed By: #### L GFR #### [place] [address] Protein [Mass/Vol] 6.8 g/dL Normal 6.4-8.2 [facility] Comment on above: Performed By: #### L GFR #### [facility] [address] [place], [place] [address] ALT [Catalytic activity/Vol] 18 U/L Normal 12-78 [facility] Comment on above: Performed By: #### L GFR #### [facility] [address] [place], [place] [address] Glucose [Mass/Vol] 266 mg/dL High 70-99 [facility] Comment on above: Performed By: #### L GFR #### [facility] [address] [place], [place] [address] Albumin [Mass/Vol] 3.2 g/dL Low 3.4-5.0 [facility] Comment on above: Performed By: #### L GFR #### [facility] [address] [place], [place] [address] Anion gap [Moles/Vol] 11 mmol/L Normal 8-16 [facility] Comment on above: Performed By: #### L GFR #### [facility] [address] [place], [place] [address] Calcium [Mass/Vol] 8.9 mg/dL Normal 8.5-10.1 [facility] Comment on above: Performed By: #### L GFR #### [facility] [address] [place], [place] [address] CO2 [Moles/Vol] 25 mmol/L Normal 21-32 [facility] Comment on above: Performed By: #### L GFR #### [facility] [address] [place], [place] [address] Urea nitrogen [Mass/Vol] 8 mg/dL Normal 7-18 [facility] Comment on above: Performed By: #### L GFR #### [facility] [address] [place], [place] [address] Chloride [Moles/Vol] 100 mmol/L Normal 98-107 [facility] Comment on above: Performed By: #### L GFR #### [facility] [address] [place], [place] [address] Potassium [Moles/Vol] 3.9 mmol/L Normal 3.5-5.1 [facility] Comment on above: Performed By: #### L GFR #### [facility] [address] [place] [address] Sodium [Moles/Vol] 132 mmol/L Low 136-145 [facility] Comment on above: Performed By: #### L GFR #### [facility] [address] [place] [address] Hemogramon 09-24-2018 Erythrocyte distribution width (RBC) [Ratio] 12.6 % Normal 11.7-14.4 [facility] Comment on above: Performed By: #### L GFR #### [place] [address] Hematocrit (Bld) [Volume fraction] 47.5 % High 34.1-44.9 [facility] Comment on above: Performed By: #### L GFR #### [place] [address] Hemoglobin (Bld) [Mass/Vol] 15.9 g/dL High 11.2-15.7 [facility] Comment on above: Performed By: #### L GFR #### [place] [address] MCH (RBC) [Entitic mass] 27.7 pg Normal 25.6-32.2 [facility] Comment on above: Performed By: #### L GFR #### [place] [address] MCHC (RBC) [Mass/Vol] 33.5 % Normal 31.6-34.8 [facility] Comment on above: Performed By: #### L GFR #### [place] [address] MCV (RBC) [Entitic vol] 82.8 fL Normal 79.4-94.8 [facility] Comment on above: Performed By: #### L GFR #### [place] [address] Platelet mean volume (Bld) [Entitic vol] 9.9 fL Normal 9.4-12.3 [facility] Comment on above: Performed By: #### L GFR #### [facility] [address] [place], [place] [address] Platelets (Bld) [#/Vol] 248 thou/cmm Normal 182-369 [facility] Comment on above: Performed By: #### L GFR #### [facility] [address] [place], [place] [address] RBC (Bld) [#/Vol] 5.74 mil/cmm High 3.93-5.22 [facility] Comment on above: Performed By: #### L GFR #### [facility] [address] [place], [place] [address] RDW SD 38.0 fl Normal 36.4-46.3 [facility] Comment on above: Performed By: #### L GFR #### [facility] [address] [place], [place] [address] WBC (Bld) [#/Vol] 11.62 thou/cmm High 3.98-10.04 [facility] Comment on above: Performed By: #### L GFR #### [facility] [address] [place], [place] [address] Lipid Profileon 09-24-2018 Cholesterol in HDL [Mass/Vol] 35 mg/dL Normal >40 [facility] Comment on above: Performed By: #### L GFR #### [facility] [address] [place] [address] Cholesterol in LDL [Mass/Vol] 120 mg/dL Normal [facility] Comment on above: Result Comment: No C AD and with fewer than 2 CAD risk factors <160 mg/dL No CAD but with 2 or more CAD risk factors <130 mg/dL Definite CAD or other atherosclerotic disease <100 mg/dL Performed By: #### L GFR #### [facility] [address] [place], [place] [address] Cholesterol in LDL/Cholesterol in HDL [Mass ratio] 3.4 Normal 0.6-3.6 [facility] Comment on above: Result Comment: LDL, VLDL,LDL/HDL, Invalid if Triglyceride >400 Performed By: #### L GFR #### [facility] [address] [place], [place] [address] Cholesterol.total/Pipe sterol in HDL [Mass ratio] 5.9 {ratio} High 1.8-5.3 [facility] Comment on above: Performed By: #### L GFR #### [facility] [address] [place], [place] [address] Cholesterol [Mass/Vol] 205 mg/dL High 0-199 [facility] Comment on above: Result Comment: <200 Desirable 200-240 Borderline >240 High Performed By: #### L GFR #### [facility] [address] [place], [place] [address] Cholesterol in VLDL [Mass/Vol] 50 mg/dL Normal <50 Desired [facility] Comment on above: Performed By: #### L GFR #### [facility] [address] [place], [place] [address] Triglyceride [Mass/Vol] 252 mg/dL High 0-149 [facility] Comment on above: Result Comment: < 20 0 Desirable Result invalid if not a fasting specimen. Performed By: #### L GFR #### [facility] [address] [place], [place] [address] Protimeon 09-24-2018 INR Coag (PPP) [Relative time] 0.97 {INR} Normal 0.90-1.30 [facility] Comment on above: Result Comment: Charissa min K Antagonist (VKA) Therapeutic Range: INR 2 to 3 (Target INR of 2.5) Note: For patients treated with VKA drugs, such as warfarin, the [employer] 2012 Guideline recommends a therapeutic INR range of 2 to 3 (target INR of 2.5). This recommendation includes high-risk patients with antiphospholipid syndrome with previous arterial or venous thromboembolism, current-generation mechanical or bioprosthetic aortic heart valve replacement. VKA Therapeutic Range for some Mechanical Valve Replacement: INR 2.5 to 3.5 (Target INR of 3) Note: Patients with mechanical aortic valve replacement and additional risk factors for thromboembolic events (atrial fibrillation, previous thromboembolism, LV dysfunction, hypercoagulable conditions) or an older generation mechanical AVR (i.e., ball in-Cage) or any mechanical MVR should have a INR therapeutic range of 2.5 to 3.5 target INR of 3). Rowan MATHEW, et al. Chest 2012; 141:7S-47S Sampson SOMMERS et al. [facility] 2017; 70: 252-289 Performed By: #### L GFR #### [place] [address] PT Coag (PPP) [Time] 10.1 s Normal 9.7-13.0 [facility] Comment on above: Performed By: #### L GFR #### [place] [address] Beta Hydroxybutyrateon 09-23 Beta Hydroxybutyrate 0.70 mmol/L High <0.10-0.27 [facility] Comment on above: Performed By: #### L LIP #### [place] [address] CPKon 09-23-2018 CK [Catalytic activity/Vol] 58 U/L Normal 26-192 [facility] Comment on above: Performed By: #### L P14 #### [place] [address] Comprehensive Panelon 2018 Anion gap [Moles/Vol] 19 mmol/L Normal 8-20 [facility] Comment on above: Performed By: #### L LIP #### [place] [address] Glucose [Mass/Vol] 422 mg/dL Critically high 70-99 [facility] Comment on above: Result Comment: RESU LT RECHECKED Performed By: #### L LIP #### [place] [address] Chloride [Moles/Vol] 98 mmol/L Normal 98-109 [facility] Comment on above: Result Comment: Test ing performed on an [employer] i-STAT. Performed By: #### L LIP #### [place] [address] Potassium [Moles/Vol] 3.9 mmol/L Normal 3.5-4.9 [facility] Comment on above: Result Comment: Test ing performed on an [employer] i-STAT. Performed By: #### L LIP #### [place] [address] Sodium [Moles/Vol] 135 mmol/L Low 138-146 [facility] Comment on above: Result Comment: Test ing performed on an [employer] i-STAT. Performed By: #### L LIP #### [facility] [address] [place] [address] Albumin [Mass/Vol] 3.6 g/dL Normal 3.4-5.0 [facility] Comment on above: Performed By: #### L LIP #### [facility] [address] [place] [address] ALP [Catalytic activity/Vol] 131 U/L High 46-116 [facility] Comment on above: Performed By: #### L LIP #### [place] [address] ALT-SGPT Blood 21 U/L Normal 14-63 [facility] Comment on above: Performed By: #### L LIP #### [place] [address] AST-SGOT Blood 28 U/L Normal 15-37 [facility] Comment on above: Performed By: #### L LIP #### [place] [address] Bilirubin Ql (U) 1.2 mg/dL High 0.2-1.0 [facility] Comment on above: Performed By: #### L LIP #### [place] [address] Calcium [Mass/Vol] 9.3 mg/dL Normal 8.5-10.1 [facility] Comment on above: Performed By: #### L LIP #### [facility] [address] [place] [address] CO2 Blood 26 mEq/L Normal 21-32 [facility] Comment on above: Performed By: #### L LIP #### [place] [address] Creatinine [Mass/Vol] 0.51 mg/dL Normal 0.51-0.95 [facility] Comment on above: Performed By: #### L LIP #### [place] [address] Protein [Mass/Vol] 7.7 g/dL Normal 6.4-8.2 [facility] Comment on above: Performed By: #### L LIP #### [facility] [address] [place], [place] [address] Urea nitrogen [Mass/Vol] 9 mg/dL Normal 7-25 [facility] Comment on above: Performed By: #### L LIP #### [facility] [address] [place], [place] [address] Urea nitrogen/Creatinine [Mass ratio] 18 mg/mg Normal 10-20 [facility] Comment on above: Performed By: #### L LIP #### [facility] [address] [place], [place] [address] D-Dimer Quantitativeon 09-23 D-Dimer Quantitative 417 ng/mL(FEU) Normal <450 [facility] Comment on above: Result Comment: 500 ng/mL FEU is the D-dimer cutoff to exclude DVT (deep vein thrombosis)and PE (pulmonary embolism)in patients with a low pre-test probability. Supplemental Comment: In patients over 50 years with a low Pre-test probability for DVT and/or PE, an age-adjusted D-dimer cutoff can be calculated as [age X 10] ng/mL FEU. For example, a patient of 88 years would have an age-adjusted D-dimer of 880 ng/mL FEU. For patients with a suspected DVT, a D-dimer level below 500 ng/mL FEU has a negative predictive value of >=99.0%, a sensitivity of >=97.0% and a specificity of >=35.8%. Performed By: #### L P14 #### [facility] [address] [place], [place] [address] Glucose Bloodon 09-23-2018 Glucose [Mass/Vol] 393 mg/dL High 70-99 [facility] Comment on above: Performed By: #### L P14 #### [facility] [address] [place], [place] [address] Glucose Meteron 09-23-2018 Glucose [Mass/Vol] 317 mg/dL High 70-99 [facility] Comment on above: Result Comment: CHAYITO MÉNDEZ MD NOTIFIED Testing [place] [address] Performed By: #### L LIP #### [place] [address] Hemogram/Diffon 09-23-2018 Abs. Baso 0.05 thou/cmm Normal 0.00-0.08 [facility] Comment on above: Performed By: #### L LIP #### [place] [address] Abs. Erie 0.38 thou/cmm Normal 0.20-1.00 [facility] Comment on above: Performed By: #### L LIP #### [place] [address] Abs. Neut (ANC) 8.10 thou/cmm High 3.00-5.67 [facility] Comment on above: Performed By: #### L LIP #### [place] [address] Basophils/100 WBC (Bld) 0.5 % Normal [facility] Comment on above: Performed By: #### L LIP #### [place] [address] Eosinophils (Bld) [#/Vol] 0.05 thou/cmm Normal 0.00-0.41 [facility] Comment on above: Performed By: #### L LIP #### [place] [address] Eosinophils/100 WBC (Bld) 0.5 % Normal [facility] Comment on above: Performed By: #### L LIP #### [place] [address] Erythrocyte distribution width (RBC) [Ratio] 12.9 % Normal 11.5-15.9 [facility] Comment on above: Performed By: #### L LIP #### [place] [address] Hematocrit (Bld) [Volume fraction] 47.8 % High 37.0-47.0 [facility] Comment on above: Performed By: #### L LIP #### [address], [place] [address] Hemoglobin (Bld) [Mass/Vol] 16.5 g/dL High 12.0-16.0 [facility] Comment on above: Performed By: #### L LIP #### [facility] [address] [place], [place] [address] Lymphocytes (Bld) [#/Vol] 1.52 thou/cmm Normal 1.50-3.65 [facility] Comment on above: Performed By: #### L LIP #### [facility] [address] [place], [place] [address] Lymphocytes/100 WBC (Bld) 15.0 % Normal [facility] Comment on above: Performed By: #### L LIP #### [facility] [address] [place], [place] [address] MCH (RBC) [Entitic mass] 28.0 pg Normal 27.0-31.0 [facility] Comment on above: Performed By: #### L LIP #### [place] [address] MCHC (RBC) [Mass/Vol] 34.5 % Normal 32.0-36.0 [facility] Comment on above: Performed By: #### L LIP #### [address] [address] MCV (RBC) [Entitic vol] 81.0 fL Normal 81.0-99.0 [facility] Comment on above: Performed By: #### L LIP #### [address] [address] Monocytes/100 WBC (Bld) 3.8 % Normal [facility] Comment on above: Performed By: #### L LIP #### [facility] [address] [place], [place] [address] Platelet mean volume (Bld) [Entitic vol] 10.2 fL Normal 7.1-10.5 [facility] Comment on above: Performed By: #### L LIP #### [address] [address] Platelets (Bld) [#/Vol] 202 thou/cmm Normal 150-400 [facility] Comment on above: Performed By: #### L LIP #### [facility] [address] [place], [place] [address] RBC (Bld) [#/Vol] 5.90 mil/cmm High 4.20-5.40 [facility] Comment on above: Performed By: #### L LIP #### [facility] [address] [place], [place] [address] Seg Neutrophil 80.2 % Normal [facility] Comment on above: Performed By: #### L LIP #### [facility] [address] [place], [place] [address] WBC (Bld) [#/Vol] 10.1 thou/cmm Normal 4.8-10.8 [facility] Comment on above: Performed By: #### L LIP #### [place] [address] Hgb A1con 09-23-2018 HbA1c (Bld) [Mass fraction] 11.6 % High 4.2-6.3 [facility] Comment on above: Result Comment: Meth od is National Glycohemoglobin Standardization Program (NGSP) compliant. Performed By: #### L P14 #### [facility] [address] [place] [address] HbA1c (Bld) [Mass fraction] 286 mg/dl Normal [facility] Comment on above: Performed By: #### L P14 #### [place] [address] Lipase Bloodon 09-23-2018 Lipase Blood 131 U/L Normal 73-393 [facility] Comment on above: Performed By: #### L LIP #### [facility] [address] [place] [address] MDRD eGFRon 09-23-2018 GFR/1.73 sq M predicted among non-blacks MDRD (S/P/Bld) [Vol rate/Area] mL/min/{1.73_m2} Normal >60mL/min/ 1.73m2 [facility] Comment on above: Result Comment: If t he patient is , multiply the result by 1.210. Performed By: #### L LIP #### [facility] [address] [place], [place] [address] Magnesium Bloodon 09-23-2018 Magnesium [Mass/Vol] 2.1 mg/dL Normal 1.6-2.6 [facility] Comment on above: Performed By: #### L P14 #### [place] [address] N-terminal Pro-BNPon 019 Natriuretic peptide B (Bld) [Mass/Vol] 2027 pg/mL Normal [facility] Comment on above: Result Comment: Acut e CHF Rule-in <50 yrs old >= 450 pg/ml >50 yrs old >= 900 pg/ml Abnormal Pro-BNP All patients >=300 pg/ml Performed By: #### L P14 #### [place] [address] Troponin Ion 09-23-2018 Troponin I.cardiac [Mass/Vol] ng/mL Normal 0.015-0.04 5 [facility] Comment on above: Performed By: #### L P14 #### [place] [address] Troponin I.cardiac [Mass/Vol] ng/mL Normal 0.015-0.04 5 [facility] Comment on above: Performed By: #### L P14 #### [place] [address] Troponin I.cardiac [Mass/Vol] ng/mL Normal <=0.07 [facility] Comment on above: Performed By: #### L P14 #### [place] [address] Troponin I.cardiac [Mass/Vol] ng/mL Normal <=0.07 [facility] Comment on above: Performed By: #### L LIP #### [place] [address] Comprehensive Panelon 2018 Albumin [Mass/Vol] 3.8 g/dL Normal 3.4-5.0 [facility] Comment on above: Performed By: #### L MCBD #### [place] [address] ALP [Catalytic activity/Vol] 133 U/L High 46-116 [facility] Comment on above: Performed By: #### L MCBD #### [facility] [address] [place], [place] [address] ALT-SGPT Blood 20 U/L Normal 14-63 [facility] Comment on above: Performed By: #### L MCBD #### [facility] [address] [place] [address] AST-SGOT Blood 17 U/L Normal 15-37 [facility] Comment on above: Performed By: #### L MCBD #### [facility] [address] [place] [address] Bilirubin Ql (U) 0.8 mg/dL Normal 0.2-1.0 [facility] Comment on above: Performed By: #### L MCBD #### [facility] [address] [place] [address] Calcium [Mass/Vol] 9.4 mg/dL Normal 8.5-10.1 [facility] Comment on above: Performed By: #### L MCBD #### [facility] [address] [place] [address] Creatinine [Mass/Vol] 0.58 mg/dL Normal 0.51-0.95 [facility] Comment on above: Performed By: #### L MCBD #### [facility] [address] [place] [address] Glucose [Mass/Vol] 375 mg/dL High 70-99 [facility] Comment on above: Performed By: #### L MCBD #### [facility] [address] [place], [place] [address] Protein [Mass/Vol] 7.9 g/dL Normal 6.4-8.2 [facility] Comment on above: Performed By: #### L MCBD #### [facility] [address] [place] [address] Urea nitrogen [Mass/Vol] 5 mg/dL Low 7-25 [facility] Comment on above: Performed By: #### L MCBD #### [facility] [address] [place] [address] Urea nitrogen/Creatinine [Mass ratio] 9 mg/mg Low 10-20 [facility] Comment on above: Performed By: #### L MCBD #### [facility] [address] [place] [address] Anion gap [Moles/Vol] 15 mmol/L Normal 8-20 [facility] Comment on above: Performed By: #### L MCBD #### [facility] [address] [place] [address] CO2 Blood 27 mEq/L Normal 21-32 [facility] Comment on above: Performed By: #### L MCBD #### [facility] [address] [place] [address] Chloride [Moles/Vol] 97 mmol/L Low 98-109 [facility] Comment on above: Result Comment: Test ing performed on an [employer] i-STAT. Performed By: #### L MCBD #### [place] [address] Potassium [Moles/Vol] 4.5 mmol/L Normal 3.5-4.9 [facility] Comment on above: Result Comment: Test ing performed on an [employer] i-STAT. Performed By: #### L MCBD #### [place] [address] Sodium [Moles/Vol] 135 mmol/L Low 138-146 [facility] Comment on above: Result Comment: Test ing performed on an [employer] i-STAT. Performed By: #### L MCBD #### [facility] [address] [place] [address] Hemogram/Diffon 09-06-2018 Abs. Baso 0.05 thou/cmm Normal 0.00-0.08 [facility] Comment on above: Performed By: #### L MCBD #### [place] [address] Abs. Erie 0.43 thou/cmm Normal 0.20-1.00 [facility] Comment on above: Performed By: #### L MCBD #### [place] [address] Abs. Neut (ANC) 5.29 thou/cmm Normal 3.00-5.67 [facility] Comment on above: Performed By: #### L MCBD #### [facility] [address] [place], [place] [address] Basophils/100 WBC (Bld) 0.7 % Normal [facility] Comment on above: Performed By: #### L MCBD #### [facility] [address] [place] [address] Eosinophils (Bld) [#/Vol] 0.11 thou/cmm Normal 0.00-0.41 [facility] Comment on above: Performed By: #### L MCBD #### [facility] [address] [place] [address] Eosinophils/100 WBC (Bld) 1.4 % Normal [facility] Comment on above: Performed By: #### L MCBD #### [place] [address] Erythrocyte distribution width (RBC) [Ratio] 12.9 % Normal 11.5-15.9 [facility] Comment on above: Performed By: #### L MCBD #### [facility] [address] [place] [address] Hematocrit (Bld) [Volume fraction] 48.3 % High 37.0-47.0 [facility] Comment on above: Performed By: #### L MCBD #### [facility] [address] [place] [address] Hemoglobin (Bld) [Mass/Vol] 16.4 g/dL High 12.0-16.0 [facility] Comment on above: Performed By: #### L MCBD #### [facility] [address] [place] [address] Lymphocytes (Bld) [#/Vol] 1.72 thou/cmm Normal 1.50-3.65 [facility] Comment on above: Performed By: #### L MCBD #### [address] [address] Lymphocytes/100 WBC (Bld) 22.6 % Normal [facility] Comment on above: Performed By: #### L MCBD #### [facility] [address] [place], [place] [address] MCH (RBC) [Entitic mass] 27.8 pg Normal 27.0-31.0 [facility] Comment on above: Performed By: #### L MCBD #### [facility] [address] [place], [place] [address] MCHC (RBC) [Mass/Vol] 34.0 % Normal 32.0-36.0 [facility] Comment on above: Performed By: #### L MCBD #### [facility] [address] [place] [address] MCV (RBC) [Entitic vol] 82.0 fL Normal 81.0-99.0 [facility] Comment on above: Performed By: #### L MCBD #### [place] [address] Monocytes/100 WBC (Bld) 5.7 % Normal [facility] Comment on above: Performed By: #### L MCBD #### [facility] [address] [place] [address] Platelet mean volume (Bld) [Entitic vol] 10.2 fL Normal 7.1-10.5 [facility] Comment on above: Performed By: #### L MCBD #### [place] [address] Platelets (Bld) [#/Vol] 211 thou/cmm Normal 150-400 [facility] Comment on above: Performed By: #### L MCBD #### [address] [address] RBC (Bld) [#/Vol] 5.89 mil/cmm High 4.20-5.40 [facility] Comment on above: Performed By: #### L MCBD #### [facility] [address] [place] [address] Seg Neutrophil 69.6 % Normal [facility] Comment on above: Performed By: #### L MCBD #### [place] [address] WBC (Bld) [#/Vol] 7.6 thou/cmm Normal 4.8-10.8 [facility] Comment on above: Performed By: #### L MCBD #### [facility] [address] [place] [address] Ketoneson 09-06-2018 Ketones Ql (U) Negative Normal Negative [facility] Comment on above: Performed By: #### L MCBD #### [place] [address] Lipase Bloodon 09-06-2018 Lipase Blood 112 U/L Normal 73-393 [facility] Comment on above: Performed By: #### L LIP #### [place] [address] MDRD eGFRon 09-06-2018 GFR/1.73 sq M predicted among non-blacks MDRD (S/P/Bld) [Vol rate/Area] mL/min/{1.73_m2} Normal >60mL/min/ 1.73m2 [facility] Comment on above: Result Comment: If t he patient is , multiply the result by 1.210. Performed By: #### L LIP #### [place] [address] Macroscopic Urinalysison Appearance (U) CLEAR Normal [facility] Comment on above: Performed By: #### L LIP #### [place] [address] Bilirubin Urine Negative Normal Negative [facility] Comment on above: Performed By: #### L LIP #### [place] [address] Color (U) YELLOW Normal [facility] Comment on above: Performed By: #### L LIP #### [place] [address] Glucose Ql (U) 2+ Abnormal Negative [facility] Comment on above: Performed By: #### L LIP #### [place] [address] Hemoglobin,Urine Negative Normal Negative [facility] Comment on above: Performed By: #### L LIP #### [facility] [address] [place] [address] Ketone Urine Negative Normal Negative [facility] Comment on above: Performed By: #### L LIP #### [facility] [address] [place] [address] Leukocytes Esterase Negative Normal Negative [facility] Comment on above: Performed By: #### L LIP #### [facility] [address] [place] [address] Nitrites Urine Negative Normal Negative [facility] Comment on above: Performed By: #### L LIP #### [facility] [address] [place] [address] pH (U) 7.0 [pH] Normal 5.0-8.0 [facility] Comment on above: Performed By: #### L LIP #### [facility] [address] [place] [address] Protein (U) [Mass/Vol] Negative Normal Negative [facility] Comment on above: Performed By: #### L LIP #### [facility] [address] [place] [address] Specific [place], Ur 1.020 Normal 1.005-1 .03 0 [facility] Comment on above: Performed By: #### L LIP #### [facility] [address] [place] [address] Urobilinogen,Ur 0.2 EU/dL Normal 0.0-1.0 [facility] Comment on above: Performed By: #### L LIP #### [place] [address] Basic Panelon 08-16-2018 Anion gap [Moles/Vol] 16 mmol/L Normal 8-20 [facility] Comment on above: Performed By: #### L MCBD #### [place] [address] Chloride [Moles/Vol] 99 mmol/L Normal 98-109 [facility] Comment on above: Result Comment: Test ing performed on an [employer] i-STAT. Performed By: #### L MCBD #### [place] [address] Potassium [Moles/Vol] 3.9 mmol/L Normal 3.5-4.9 [facility] Comment on above: Result Comment: Test ing performed on an [employer] i-STAT. Performed By: #### L MCBD #### [facility] [address] [place], [place] [address] Sodium [Moles/Vol] 137 mmol/L Low 138-146 [facility] Comment on above: Result Comment: Test ing performed on an [employer] i-STAT. Performed By: #### L MCBD #### [facility] [address] [place], [place] [address] Calcium [Mass/Vol] 9.3 mg/dL Normal 8.5-10.1 [facility] Comment on above: Performed By: #### L MCBD #### [address] [address] CO2 Blood 26 mEq/L Normal 21-32 [facility] Comment on above: Performed By: #### L MCBD #### [address] [address] Creatinine [Mass/Vol] 0.57 mg/dL Normal 0.51-0.95 [facility] Comment on above: Performed By: #### L MCBD #### [address] [address] Glucose [Mass/Vol] 336 mg/dL High 70-99 [facility] Comment on above: Performed By: #### L MCBD #### [address] [address] Urea nitrogen [Mass/Vol] 7 mg/dL Normal 7-25 [facility] Comment on above: Performed By: #### L MCBD #### [address] [address] Urea nitrogen/Creatinine [Mass ratio] 12 mg/mg Normal 10-20 [facility] Comment on above: Performed By: #### L MCBD #### [address] [address] Hemogram/Diffon 08-16-2018 Abs. Baso 0.08 thou/cmm Normal 0.00-0.08 [facility] Comment on above: Performed By: #### L MCBD #### [facility] [address] [place], [place] [address] Abs. Erie 0.61 thou/cmm Normal 0.20-1.00 [facility] Comment on above: Performed By: #### L MCBD #### [facility] [address] [place] [address] Abs. Neut (ANC) 8.11 thou/cmm High 3.00-5.67 [facility] Comment on above: Performed By: #### L MCBD #### [place] [address] Basophils/100 WBC (Bld) 0.7 % Normal [facility] Comment on above: Performed By: #### L MCBD #### [place] [address] Eosinophils (Bld) [#/Vol] 0.07 thou/cmm Normal 0.00-0.41 [facility] Comment on above: Performed By: #### L MCBD #### [place] [address] Eosinophils/100 WBC (Bld) 0.6 % Normal [facility] Comment on above: Performed By: #### L MCBD #### [facility] [address] [place] [address] Erythrocyte distribution width (RBC) [Ratio] 12.9 % Normal 11.5-15.9 [facility] Comment on above: Performed By: #### L MCBD #### [facility] [address] [place] [address] Hematocrit (Bld) [Volume fraction] 46.9 % Normal 37.0-47.0 [facility] Comment on above: Performed By: #### L MCBD #### [facility] [address] [place] [address] Hemoglobin (Bld) [Mass/Vol] 16.3 g/dL High 12.0-16.0 [facility] Comment on above: Performed By: #### L MCBD #### [facility] [address] [place], [place] [address] Lymphocytes (Bld) [#/Vol] 2.63 thou/cmm Normal 1.50-3.65 [facility] Comment on above: Performed By: #### L MCBD #### [facility] [address] [place], [place] [address] Lymphocytes/100 WBC (Bld) 22.9 % Normal [facility] Comment on above: Performed By: #### L MCBD #### [facility] [address] [place], [place] [address] MCH (RBC) [Entitic mass] 28.0 pg Normal 27.0-31.0 [facility] Comment on above: Performed By: #### L MCBD #### [facility] [address] [place], [place] [address] MCHC (RBC) [Mass/Vol] 34.8 % Normal 32.0-36.0 [facility] Comment on above: Performed By: #### L MCBD #### [facility] [address] [place], [place] [address] MCV (RBC) [Entitic vol] 80.4 fL Low 81.0-99.0 [facility] Comment on above: Performed By: #### L MCBD #### [facility] [address] [place], [place] [address] Monocytes/100 WBC (Bld) 5.3 % Normal [facility] Comment on above: Performed By: #### L MCBD #### [facility] [address] [place], [place] [address] Platelet mean volume (Bld) [Entitic vol] 10.1 fL Normal 7.1-10.5 [facility] Comment on above: Performed By: #### L MCBD #### [facility] [address] [place], [place] [address] Platelets (Bld) [#/Vol] 257 thou/cmm Normal 150-400 [facility] Comment on above: Performed By: #### L MCBD #### [facility] [address] [place], [place] [address] RBC (Bld) [#/Vol] 5.83 mil/cmm High 4.20-5.40 [facility] Comment on above: Performed By: #### L MCBD #### [facility] [address] [place] [address] Seg Neutrophil 70.5 % Normal [facility] Comment on above: Performed By: #### L MCBD #### [facility] [address] [place] [address] WBC (Bld) [#/Vol] 11.5 thou/cmm High 4.8-10.8 [facility] Comment on above: Performed By: #### L MCBD #### [facility] [address] [place] [address] MDRD eGFRon 08-16-2018 GFR/1.73 sq M predicted among non-blacks MDRD (S/P/Bld) [Vol rate/Area] mL/min/{1.73_m2} Normal >60mL/min/ 1.73m2 [facility] Comment on above: Result Comment: If t he patient is , multiply the result by 1.210. Performed By: #### L MCBD #### [facility] [address] [place] [address] Basic Panelon 07-31-2018 Anion gap [Moles/Vol] 17 mmol/L Normal 8-20 [facility] Comment on above: Performed By: #### L MCBD #### [facility] [address] [place] [address] Chloride [Moles/Vol] 97 mmol/L Low 98-109 [facility] Comment on above: Result Comment: Test ing performed on an [employer] i-STAT. Performed By: #### L MCBD #### [facility] [address] [place] [address] Potassium [Moles/Vol] 4.4 mmol/L Normal 3.5-4.9 [facility] Comment on above: Result Comment: Test ing performed on an [employer] i-STAT. Performed By: #### L MCBD #### [facility] [address] [place] [address] Sodium [Moles/Vol] 134 mmol/L Low 138-146 [facility] Comment on above: Result Comment: Test ing performed on an [employer] i-STAT. Performed By: #### L MCBD #### [facility] [address] [place], [place] [address] Calcium [Mass/Vol] 9.2 mg/dL Normal 8.5-10.1 [facility] Comment on above: Performed By: #### L MCBD #### [facility] [address] [place], [place] [address] CO2 Blood 24 mEq/L Normal 21-32 [facility] Comment on above: Performed By: #### L MCBD #### [address] [address] Creatinine [Mass/Vol] 0.52 mg/dL Normal 0.51-0.95 [facility] Comment on above: Performed By: #### L MCBD #### [address] [address] Glucose [Mass/Vol] 444 mg/dL Critically high 70-99 [facility] Comment on above: Performed By: #### L MCBD #### [address] [address] Urea nitrogen [Mass/Vol] 7 mg/dL Normal 7-25 [facility] Comment on above: Performed By: #### L MCBD #### [address] [address] Urea nitrogen/Creatinine [Mass ratio] 14 mg/mg Normal 10-20 [facility] Comment on above: Performed By: #### L MCBD #### [facility] [address] [place], [place] [address] Hemogram/Diffon 07-31-2018 Abs. Baso 0.05 thou/cmm Normal 0.00-0.08 [facility] Comment on above: Performed By: #### L SHCG #### [address] [address] Abs. E[place] 0.63 thou/cmm Normal 0.20-1.00 [facility] Comment on above: Performed By: #### L SHCG #### [facility] [address] [place], [place] [address] Abs. Neut (ANC) 8.64 thou/cmm High 3.00-5.67 [facility] Comment on above: Performed By: #### L SHCG #### [facility] [address] [place], [place] [address] Basophils/100 WBC (Bld) 0.4 % Normal [facility] Comment on above: Performed By: #### L SHCG #### [facility] [address] [place], [place] [address] Eosinophils (Bld) [#/Vol] 0.16 thou/cmm Normal 0.00-0.41 [facility] Comment on above: Performed By: #### L SHCG #### [facility] [address] [place], [place] [address] Eosinophils/100 WBC (Bld) 1.4 % Normal [facility] Comment on above: Performed By: #### L SHCG #### [place] [address] Erythrocyte distribution width (RBC) [Ratio] 13.4 % Normal 11.5-15.9 [facility] Comment on above: Performed By: #### L SHCG #### [address] [address] Hematocrit (Bld) [Volume fraction] 49.1 % High 37.0-47.0 [facility] Comment on above: Performed By: #### L SHCG #### [facility] [address] [place], [place] [address] Hemoglobin (Bld) [Mass/Vol] 17.0 g/dL High 12.0-16.0 [facility] Comment on above: Performed By: #### L SHCG #### [facility] [address] [place], [place] [address] Lymphocytes (Bld) [#/Vol] 2.12 thou/cmm Normal 1.50-3.65 [facility] Comment on above: Performed By: #### L SHCG #### [facility] [address] [place], [place] [address] Lymphocytes/100 WBC (Bld) 18.3 % Normal [facility] Comment on above: Performed By: #### L SHCG #### [facility] [address] [place], [place] [address] MCH (RBC) [Entitic mass] 27.8 pg Normal 27.0-31.0 [facility] Comment on above: Performed By: #### L SHCG #### [facility] [address] [place], [place] [address] MCHC (RBC) [Mass/Vol] 34.6 % Normal 32.0-36.0 [facility] Comment on above: Performed By: #### L SHCG #### [address] [address] MCV (RBC) [Entitic vol] 80.4 fL Low 81.0-99.0 [facility] Comment on above: Performed By: #### L SHCG #### [address] [address] Monocytes/100 WBC (Bld) 5.4 % Normal [facility] Comment on above: Performed By: #### L SHCG #### [address] [address] Platelet mean volume (Bld) [Entitic vol] 10.2 fL Normal 7.1-10.5 [facility] Comment on above: Performed By: #### L SHCG #### [address] [address] Platelets (Bld) [#/Vol] 209 thou/cmm Normal 150-400 [facility] Comment on above: Performed By: #### L SHCG #### [facility] [address] [place], [place] [address] RBC (Bld) [#/Vol] 6.11 mil/cmm High 4.20-5.40 [facility] Comment on above: Performed By: #### L SHCG #### [address] [address] Seg Neutrophil 74.5 % Normal [facility] Comment on above: Performed By: #### L SHCG #### [facility] [address] [place] [address] WBC (Bld) [#/Vol] 11.6 thou/cmm High 4.8-10.8 [facility] Comment on above: Performed By: #### L SHCG #### [facility] [address] [place] [address] MDRD eGFRon 07-31-2018 GFR/1.73 sq M predicted among non-blacks MDRD (S/P/Bld) [Vol rate/Area] mL/min/{1.73_m2} Normal >60mL/min/ 1.73m2 [facility] Comment on above: Result Comment: If t he patient is , multiply the result by 1.210. Performed By: #### L MCBD #### [place] [address] Rapid Influenza A/Bon 2018 Rapid Influenza A/B See below Normal Negative [facility] Comment on above: Result Comment: Nega tive for influenza A and B. Performed By: #### L MCBD #### [facility] [address] [place] [address] Urinalysis Routineon 019 Appearance (U) CLEAR Normal [facility] Comment on above: Performed By: #### L MCBD #### [place] [address] Bilirubin Urine Negative Normal Negative [facility] Comment on above: Performed By: #### L MCBD #### [facility] [address] [place] [address] Color (U) YELLOW Normal [facility] Comment on above: Performed By: #### L MCBD #### [facility] [address] [place] [address] Ep Cells Urine 2-5 Normal 0-5 [facility] Comment on above: Performed By: #### L MCBD #### [facility] [address] [place] [address] Glucose Ql (U) 2+ Abnormal Negative [facility] Comment on above: Performed By: #### L MCBD #### [facility] [address] [place] [address] Hemoglobin,Urine Negative Normal Negative [facility] Comment on above: Performed By: #### L MCBD #### [facility] [address] [place] [address] Ketone Urine Negative Normal Negative [facility] Comment on above: Performed By: #### L MCBD #### [facility] [address] [place] [address] Leukocytes Esterase Negative Normal Negative [facility] Comment on above: Performed By: #### L MCBD #### [facility] [address] [place] [address] Nitrites Urine Negative Normal Negative [facility] Comment on above: Performed By: #### L MCBD #### [facility] [address] [place] [address] pH (U) 6.0 [pH] Normal 5.0-8.0 [facility] Comment on above: Performed By: #### L MCBD #### [place] [address] Protein (U) [Mass/Vol] TRACE Abnormal Negative [facility] Comment on above: Performed By: #### L MCBD #### [place] [address] RBC LM.HPF (Urine sed) [#/Area] 0-3 Normal 0-3 [facility] Comment on above: Performed By: #### L MCBD #### [place] [address] Specific [place], Ur 1.015 Normal 1.005-1 .03 0 [facility] Comment on above: Performed By: #### L MCBD #### [place] [address] Urobilinogen,Ur 0.2 EU/dL Normal 0.0-1.0 [facility] Comment on above: Performed By: #### L MCBD #### [place] [address] WBC LM.HPF (Urine sed) [#/Area] 0-2 Normal 0-5 [facility] Comment on above: Performed By: #### L MCBD #### [place] [address] CASE MANAGEMon 07-21-2018 CASE MANAGEM HNO ID: [id number] Author: Jameson Sanders (Lisw) Service: (none) Author Type: Front End Specialist Type: Care Mgt Progress Note Filed: 07/21/2018 1:13 PM Note Text: CARE MANAGEMENT DISCHARGE NOTE SERVICE DATE: 07/21/2018 SERVICE TIME: 1:10 PM LOS: 0 days Admission Date: 07/20/2018 DISCHARGE ARRANGEMENT (list agency and phone number) Home Provider: Dr. Conteh CAREGIVER ASSESSMENT: Caregiver is ready, willing and able to meet the patient's needs as recommended by the inter-professional team? No Caregiver Needed Patient's transition needs and plan for meeting these needs: Home with basic transition planning needs. Does the patient have an acute stroke diagnosis, or has the patient had a stroke during this admission? No HANDOFF COMMUNICATION: Summary of Care sent TRANSPORTATION ARRANGEMENTS: Car Spouse to transport ADDITIONAL CONTACT RESOURCES: NARCISA provided financial resources for [facility]. The pt plans to follow up with [facility] for anxiety and depression. NARCISA tasked the [facility] for a f/u apt and they will contact the pt tomorrow. SIGNATURE: NARCISA [facility] PATIENT NAME: Trenton Jackson DATE: July 21, 2018 TIME: 1:10 PM PAGER/CONTACT #: [phone] [facility] CASE MGT INIT [facility] 2018 CASE MGT INIT [facility] HNO ID: [id number] Author: Jameson Sanders (Lisw) Service: (none) Author Type: Front End Specialist Type: Care Mgt Initial Assessment Filed: 07/21/2018 1:09 PM Note Text: CARE MANAGEMENT: ASSESSMENT AND DISCHARGE PLAN SERVICE DATE: 07/21/2018 SERVICE TIME: 12:00 PM PRIMARY CARE PHYSICIAN: Uziel Conteh MD - Pt confirmed and is agreeable to [facility] scheduling a f/u apt. NARCISA sent a task. 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 No Advance Directive: Current Advance Directive: None Combat Control Attempted to Assist with AD Completion: Yes Action: Education Provided Health Literacy: 1. How often do you need to have someone help you when you read instructions, pamphlets, or other written material from your doctor or pharmacy? Never - 1 2. How confident are you filling out medical forms by yourself? Extremely - 1 If Patient scores > 3 on either question, the following interventions were put into place: Patient did not score > 3 FUNCTIONAL AND COGNITIVE/BEHAVIORAL PRIOR TO ADMISSION: Baseline Mental Status: Alert AND Oriented, Person, Place , Time and Situation Functional Status: Independent Does Patient Currently Receive Any Community Services or Home Care? None Equipment Prior to Admission: Glucometer Has the Patient Been in a Penitentiary Facility in the Past 30 days? No SOCIAL: Living Arrangement: Home Lives With: Spouse and children Financial Resources: Unemployed Primary Contact: Extended Emergency Contact Information Primary Emergency Contact: Curry Jackson Jr Address: [address] [place] [address] [facility] Mobile Relation: Spouse Secondary Emergency Contact: Rebecca Dueñas Address: [place], [place] [id number] [place] [address] Relation: Mother Supportive: Yes Other Important Patient Contacts: None Caregiver Assessment: Caregiver is ready, willing and able to meet the patient's needs as recommended by the inter-professional team? No Caregiver Needed Patient's transition needs and plan for meeting these needs: home with basic transition planning needs. Does the patient have an acute stroke diagnosis, or has the patient had a stroke during this admission? No Medication Adherence: I am convinced of the importance of my prescription medication: Agree completely - 0 I worry that my prescription medication will do more harm than good to me Disagree completely - 0 I feel financially burdened by my [id number] expenses for my prescription medication: Disagree completely - 0 Patient is categorized as low risk < 2 Are you interested in bedside delivery of your medications? No Food Concerns: In the Last Month, Have You had Trouble Getting Food? Yes, due to: Finances During the Last Month, Have You Worried Whether Your Food Would Run Out Before You Had Enough Money to Buy More? Yes, provided resources Is the Patient Psychosocially Complex? Yes, refer to Social Work. ASSESSMENT AND PLAN: Medical Needs: 2 or more chronic diseases Psychosocial Needs: Food Insecurity Mental Health Diagnosis: anxiety and depression FREEDOM OF CHOICE EXPLAINED: N/A POTENTIAL TRANSITION PLANS Home Psych Facility/Counseling [facility] NARCISA met with the pt at bedside to complete the assessment. The pt is from home with her spouse and children. There is a lot of financial stress in the home as her 's SSD was recently cut. Per the pt this is temporary and he needs to complete a medical appointment and paperwork and his benefits should be fully reinstated. The pt is also waiting for her income tax check to come, which will help. It was supposed to be here this past week and she was informed that it would not be here until the first august. This was also stressful for the pt as she has been borrowing money from her parents to pay the water bill and electric bill. NARCISA did provide a list of resources for [employer]. The pt has been active with [facility] in the past for anxiety and depression and plans to make another appointment as she has been struggling again. SIGNATURE: NARCISA [facility] PATIENT NAME: Trenton Jackson DATE: July 21, 2018 TIME: 1:00 PM PAGER/CONTACT #: [phone] [facility] 07-21-2018 CNCO Letter Text July 21, 2018 Trenton Jackson [address] [facility] [address] Dear Ms. Jacksno, The nurses and staff of [facility] hope this letter finds you feeling well and progressing in your recovery. Our staff would like to thank you for trusting and choosing us for your health care needs. It was an honor for us to provide your nursing care. We know that placing our Patients First and maintaining a culture of continuous improvement each and every day, are essential to the success of our organization. I hope your stay with us has been positive. We want to hear from you. If you have any comments, questions or concerns about your hospital stay, please feel free to contact me, Bety Alcaraz RN ([phone]) or email me at, [email or web address] Additionally, you will receive a survey in the mail asking you to rate the care you received while in the hospital. Please take the time to complete and send back the survey, as it is essential to our continued success. I personally review all the results and would appreciate your feedback. Thank you in advance for your participation and thank you for choosing the [facility] for your health needs. Sincerely, Nurse Deputy Court Clerk: Bety Alcaraz RN ([phone]) [facility] Unit: 3 Observation Letter Text July 22, 2018 Department of Hospital Medicine [address] [place] [address] Re: Trenton Jackson Dear Dr. Conteh: A patient of your practice, Trenton Jackson (: 1970) was treated at [facility] under the care of the [facility] Department of Hospital Medicine, and discharged on 07/21/2018. A transcribed discharge summary should be forthcoming promptly. If you need additional information or assistance, you may contact the Department of Hospital Medicine at [phone] during regular business hours, and we?ll be happy to assist you. Best Regards, Juancarlos Ann [facility] HNO ID: [id number] Author: Magda Miller Handbag Operator Service: Hospital Medicine Author Type: Nurse Practitioner Type: Discharge Summaries Filed: 07/21/2018 11:41 AM Note Text: ----- Attestation signed by Lei Roman at 07/21/2018 12:09 PM [facility] STAFF PHYSICIAN NOTE OF PERSONAL INVOLVEMENT IN CARE I have reviewed the documentation obtained and documented by the team healthcare provider (medical student, fellow, resident, nurse practitioner or physician boilermaker's assistant) and I personally participated in the jones components. I have discussed the case and management of the patient's care. Lei Roman MD Hospital Medicine Staff PAGER: [phone] DATE of Service: 07/21/2018 TIME of Service: 12:09 PM ----- DISCHARGE SUMMARY PATIENT NAME: Trenton Jackson Code Status: Full Code Highest Readmission Risk Score: 20 The 30 day readmissions risk score is derived from an internally validated risk model which evaluates patient level characteristics, utilization history, medication orders and lab results up until the day of discharge. Patients with a score of 40 or above are considered highest risk for readmission. Specific patient level drivers will be listed at the bottom of the summary. Admission Information Admission Information ADMIT DATE: 07/20/2018 DISCHARGE DATE: 07/21/2018 MY DOCTORS AND MEDICAL TEAM: My Main Hospital Doctor: Lei Roman Primary Care Provider: Uziel Conteh MD My Medical Team Members: Treatment Team: Attending Provider: Lei Roman Nurse Practitioner: Magda Truong MY CONDITION AT DISCHARGE: Improved REASON I WAS IN THE HOSPITAL: Chest pain SUMMARY OF WHAT HAPPENED WHILE I WAS IN THE HOSPITAL: Presented to emergency room for evaluation of chest pain. Initial work up negative. Given history of CAD and cardiomyopathy, admitted for observation. Troponins remained negative. No events on telemetry. Chest pain was reproducible to palpation. Evaluated by cardiology who did not recommend any additional cardiac work up. Symptoms likely musculoskeletal with component of anxiety, less likely cardiac in nature. Cleared for discharge home. May resume all home medications. Advised non-steroidal anti-inflammatories and Tylenol for discomfort. Should follow up with primary care provider in one week and with primary resume writer as scheduled. We discussed increasing dose of Zoloft as well as seeing a therapist for her anxiety/depression. Discussed red flag symptoms and when to return. OTHER PROBLEMS/DIAGNOSIS: Active Problems: Uncontrolled type 2 diabetes mellitus with circulatory disorder, with long-term current use of insulin (HCC) Dyslipidemia Primary hypertension Smoker Anxiety Chest pain at rest Cardiomyopathy (HCC) Chronic systolic heart failure (HCC) Cannabis use disorder, mild, abuse Frailty Coronary artery disease involving rincon coronary artery of rincon heart without angina pectoris Resolved Problems: * No resolved hospital problems. * OPERATIONS PERFORMED WHILE IN THE HOSPITAL: None IMPORTANT TEST/PROCEDURES: EKG, chest x-ray TEST RESULTS NOT AVAILABLE AT THIS TIME: No pending results Discharge Disposition Discharge Disposition: Home With Self Care Activity When You Leave the Hospital Resume pre-hospital activity Diet Instructions Resume your pre-hospital diet For Pain When You Leave the Hospital Use acetaminophen (Tylenol) as recommended on the bottle Use ibuprofen (Motrin, Advil) as recommended on the bottle Call Your Doctor If You have lightheadedness, fainting, or confusion You have persistent nausea/vomiting over 24 hours You have swollen glands or cold and clammy skin Follow Up Appointments Follow-Up Appointment Hospital follow up When: In 1 week Patient/Parents to call for appointment?: Yes Uziel Conteh [phone] [address] [facility] [address] PCP Requested Referral Additional Provider to Provider Information: 47 year old female PMHx of CAD (LAD 80% stenosis 12/2017), uncontrolled IDDM, HTN, HLD, back pain, mixed diastolic-systolic CHF with EF 36% (labeled by cardiology as ischemic cardiomyopathy without heart failure), h/o pericardial cyst, diverticulosis, cannabis use disorder, tobacco abuse disorder, and h/o depression/anxiety disorder. Presents with severe left sided chest pain which moves into her left shoulder and down to her left hand which woke her up from rest. She was nauseated and lightheaded. She called for EMS to take her to [place] ED around 7 am. Patient was recommended to go to a hospital with PCI capacity but the patient declined and said [facility] only. Initial work up in the ED was negative but given history of CAD and ischemic cardiomyopathy admitted for observation and evaluated by cardiology. Cycled troponins negative. No events on tele. Chest pain reproducible to palpation. Cardiology felt discomfort did not appear anginal and did not recommenced any additional workup. Suspect symptoms more likely musculoskeletal in nature in addition to a component of anxiety (the patient acknowledges she is under a great deal of stress at home). Trialed NSAIDs with improvement. Cleared for discharge home. May resume all home meds. Follow up with PCP in one week and with cardiology as previously scheduled. We discussed possibly increasing her SSRI and following with a therapist for her anxiety/depression. Instead of treating with benzodiazepines or sedative hypnotics, am recommending deep breathing and contemplative techniques to manage symptoms. Discussed red flag symptoms and when to return. All questions were addressed and answered. She was comfortable with the plan of care. Assessment AND Plan, all Hosp Problems Active Hospital Problems as of 07/21/2018 Noted - Resolved Uncontrolled type 2 diabetes mellitus with circulatory disorder, with long-term current use of insulin ([facility]) 12/06/2017 - Present Primary hypertension 12/06/2017 - Present Dyslipidemia 11/30/2017 - Present Smoker 12/02/2017 - Present Frailty 07/20/2018 - Present Coronary artery disease involving rincon coronary artery of rincon heart without angina pectoris 07/21/2018 - Present Chronic systolic heart failure ([facility]) 06/08/2018 - Present Chest pain at rest 11/30/2017 - Present Cardiomyopathy ([facility]) 12/02/2017 - Present Cannabis use disorder, mild, abuse 07/20/2018 - Present Anxiety 02/20/2017 - Present Resolved Hospital Problems as of 07/21/2018 None Transitions of Care Critical Issues: SPECIALIST FOLLOW-UP: PCP in 1 week, Cardiology as scheduled LABS AND PROCEDURES PENDING AT DISCHARGE: No pending results. FOLLOW-UP APPOINTMENTS ALREADY SCHEDULED WITH A [facility] PROVIDER: No future appointments. ALLERGIES Allergen Reactions - Latex Itching Red and dry cracking skin DISCHARGE MEDICATION: Current Discharge Medication List CONTINUE these medications which have NOT CHANGED VENTOLIN HFA 2 Puffs Inhale 2 Puffs as instructed every 4 hours as needed for Wheezing/Shortness of Breath. Qty: 18 g Refills: 0 atorvastatin (LIPITOR) 80 mg Take 80 mg by mouth daily at bedtime. Qty: 30 tablet Refills: 3 lisinopril (ZESTRIL, PRINIVIL) 10 mg Take 10 mg by mouth once daily. Qty: 30 tablet Refills: 2 metoprolol succinate ER (TOPROL XL) 25 mg Take 25 mg by mouth daily at bedtime. Qty: 30 tablet Refills: 2 aspirin, enteric coated (ASPIRIN, ENTERIC COATED) 81 mg Take 81 mg by mouth once daily. Qty: 30 tablet Refills: 2 dicyclomine (BENTYL) 20 mg Take 20 mg by mouth every 6 hours. Qty: 120 tablet Refills: 3 ondansetron orally disintegrating (ZOFRAN ODT) 4 mg Take 4 mg by mouth every 6 hours as needed. Qty: 10 tablet Refills: 0 naproxen (NAPROSYN) 500 mg Take 500 mg by mouth twice daily with meals. TAKE WITH FOOD Qty: 14 tablet Refills: 0 promethazine (PHENERGAN) 12.5 mg 12.5 mg by RECTAL route every 4 hours as needed for Nausea/Vomiting. Qty: 8 Suppository Refills: 0 insulin glargine (LANTUS SOLOSTAR, BASAGLAR KWIKPEN) 40 Units Inject 40 Units subcutaneously twice daily. Qty: 10 Pen Refills: 3 Associated Diagnoses:Uncontrolled type 2 diabetes mellitus with other circulatory complication, with long-term current use of insulin blood sugar diagnostic (FREESTYLE TEST) test strip Use as directed. Qty: 1 Bottle Refills: 2 Associated Diagnoses:Uncontrolled type 2 diabetes mellitus with other circulatory complication, with long-term current use of insulin Blood Pressure Monitor 1 Each 1 Each once daily. Qty: 1 Kit Refills: 0 Associated Diagnoses:Other cardiomyopathy (HCC); Primary hypertension insulin aspart U-100 (NovoLOG) 2 Units Inject 2 Units subcutaneously three times daily with meals. Per Sliding scale Qty: 1 Pen Refills: 5 insulin needles, DISPOSABLE, (UNIFINE PENTIPS) 31 gauge x 5/16 ndle Use with insulin injections Qty: 100 Each Refills: 2 Discharge Physical Exam: VITAL SIGNS: BP 140/90 Pulse 102 Temp 36.5 ?C (97.7 ?F) (Oral) Resp 20 Ht 170.2 cm (5' 7) Wt 80.8 kg (178 lb 2.1 oz) LMP 10/27/2015 (Exact Date) SpO2 97% BMI 27.90 kg/m? GENERAL: Alert, no distress, cooperative SKIN: Skin color, texture, turgor normal. No rashes or lesions. HEAD/SINUSES: No significant findings EYES: PERRLA, EOMI NECK: Supple, No thyromegaly BACK: Back symmetric, Normal curvature LUNGS: Lungs clear to auscultation, Good diaphragmatic excursion CARDIAC: RRR; no rubs, murmurs, or gallops ABDOMEN: Abdomen soft, non-tender, BS normal, No masses or organomegaly EXTREMITIES: Extremities normal, no deformities, edema, clubbing or skin discoloration. Good capillary refill., No ulcers NEURO: Grossly normal cognition, motor function, and cranial nerves III-XII PULSES: 2+ radial, 2+ dorsalis pedis The patient's risk for 30-day readmission is determined using the following contributing factors: Pt variables contributing to increased readmission risk: 21 Active Medication Orders 11 Number of Previous ED Visits (6 mos.) 8.7 First Resulted Calcium During Admission 5 Most Recent BUN Result 2 Number of Hospitalizations (12 mos.) 1 Previous ED Visit (6 mos.)? 1 Insurance - Medicaid 1 Discharge Disposition - Home TIME OF CARE: Discharge Management: I personally spent greater than 30 minutes involved in the discharge management of this patient. Total Discharge Time: 36 minutes SIGNATURE: Magda Truong APRN.CNP PAGER/CONTACT #: [phone] DATE: July 21, 2018 TIME: 11:38 AM [facility] CONSULTon 07-21-2018 CONSULT HNO ID: [id number] Author: Torito Foley Service: Cardiovascular Disease Author Type: Physician Type: Consults Filed: 07/21/2018 10:30 AM Note Text: CONSULT: CARDIOLOGY SERVICE SERVICE DATE: 07/21/2018 SERVICE TIME: 8:51 AM CONSULTING PHYSICIAN: Torito Foley MD PCP: Uziel Conteh MD ATTENDING: Lei Roman REASON FOR CONSULT: Chest pain Subjective CHIEF COMPLAINT: CHEST PAIN HISTORY OF PRESENT ILLNESS: Ms. Jackson is a 47 year old female with a past medical history of severe single-vessel coronary artery disease with diffuse disease of the LAD in the proximal and mid portions followed by a severe 80% stenosis in the distal portion, not revascularized, chronic systolic heart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 dyspnea, cough, wheezing, hemoptysis GI: nausea, vomiting, diarrhea, constipation, melena, hematochezia, abdominal pain : dysuria, frequency, urgency, hematuria, foamy urine MSK: arthralgias, myalgias Neuro: one-sided weakness, paresthesias, imbalance, vertigo Endocrine: fatigability, weight loss/gain Past Medical History: PAST MEDICAL HISTORY Diagnosis Date - Chest pain - Diabetes mellitus - Diverticula of intestine - Hyperlipemia - Hypertension - Incisional hernia - Psychiatric disorder Medications: Current Outpatient Prescriptions on File Prior to Encounter: VENTOLIN HFA 90 mcg/actuation inhaler Inhale 2 Puffs as instructed every 4 hours as needed for Wheezing/Shortness of Breath. atorvastatin (LIPITOR) 80 mg tablet Take 1 tablet by mouth daily at bedtime. lisinopril (ZESTRIL, PRINIVIL) 10 mg tablet Take 1 tablet by mouth once daily. metoprolol succinate ER (TOPROL XL) 25 mg 24 hr tablet Take 1 tablet by mouth daily at bedtime. aspirin, enteric coated (ASPIRIN, ENTERIC COATED) 81 mg EC tablet Take 1 tablet by mouth once daily. dicyclomine (BENTYL) 20 mg tablet Take 1 tablet by mouth every 6 hours. omeprazole (PRILOSEC) 20 mg capsule Take 1 capsule by mouth once daily. ondansetron orally disintegrating (ZOFRAN ODT) 4 mg disintegrating tablet Take 1 tablet by mouth every 6 hours as needed. naproxen (NAPROSYN) 500 mg tablet Take 1 tablet by mouth twice daily with meals. TAKE WITH FOOD promethazine (PHENERGAN) 12.5 mg suppository 1 Suppository by RECTAL route every 4 hours as needed for Nausea/Vomiting. insulin glargine (LANTUS SOLOSTAR, BASAGLAR KWIKPEN) 100 unit/mL (3 mL) inpn Inject 40 Units subcutaneously twice daily. blood sugar diagnostic (FREESTYLE TEST) test strip Use as directed. Blood Pressure Monitor (BLOOD PRESSURE KIT) kit 1 Each once daily. insulin aspart U-100 (NOVOLOG FLEXPEN U-100 INSULIN) 100 unit/mL inpn Inject 2 Units subcutaneously three times daily with meals. Per Sliding scale insulin needles, DISPOSABLE, (UNIFINE PENTIPS) 31 gauge x 5/16 ndle Use with insulin injections Allergies to Medications: ALLERGIES Allergen Reactions - Latex Itching Red and dry cracking skin Past Surgical History: PAST SURGICAL HISTORY Procedure Laterality Date - APPENDECTOMY 2007 - DELIVERY ONLY , low transverse - COLONOSCOPY 2001? 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 * Social History Main Topics Smoking status: Current Every Day Smoker Packs/day: 0.50 Years: 27.00 Types: Cigarettes Smokeless tobacco: Never Used Comment: trying to quit Alcohol use: No Drug use: No Sexual activity: Yes Partners with: Male control/protection: Tubal Ligation Other Topics Concern Caffeine Concern Yes Comment:soda Family History: FAMILY HISTORY Problem Relation Age of Onset - Thyroid Mother Graves - Diabetes Mother - Hypertension Mother - Diabetes Maternal Grandmother - Diabetes Maternal Uncle - Diabetes Maternal Aunt Present Condition: Vitals: BP 115/75 Pulse 113 Temp 36.7 ?C (98.1 ?F) (Oral) Resp 19 Ht 170.2 cm (5' 7) Wt 79.2 kg (174 lb 9.7 oz) LMP 10/27/2015 (Exact Date) SpO2 97% BMI 27.35 kg/m? General appearance: Thin and ill appearing Skin: Pale skin, thin skin, no bruising appreciated Head: Normocephalic, no masses, lesions, tenderness or abnormalities Eyes: Anicteric sclera. Pupils are equally round and reactive to light. Extraocular movements are intact. , Conjunctival rhythm pallor present bilateral eyes Ears: External ears normal, canals clear Nose/Sinuses: Nares normal, septum midline, mucosa normal, no drainage or sinus tenderness Oropharynx: Poor dentition, dry appearing tongue Neck: Supple, no adenopathy; thyroid symmetric, normal size, no bruits Back: Normal exam, no pain to palpation Lungs: percussion normal, good diaphragmatic excursion wheezing present no rhonchi or rales Heart: RRR without murmur, gallop, or rubs. No ectopy, tachycardic Abdomen: Normal abdominal exam, Abdomen soft, non-tender. Bowel sounds normal. No masses, organomegaly Extremities: No deformities, edema, skin discoloration, clubbing or cyanosis. Good capillary refill. Musculoskeletal: No joint swelling, deformity, or tenderness Peripheral pulses: Normal, Capillary refill <2secs, strong peripheral pulses Neuro: No dysarthria, no dysmetria, patient is oriented to person place and circumstance but appears anxious Labs: CBC, Coags, BMP, Mg, Phos Recent Labs 07/20/18 1730 07/20/18 1120 WBC 11.50* 9.5 HB 16.7* 17.3* HCT 48.4* 49.9* PLT 242 209 NA -- 135* K -- 4.2 CHLOR -- 95* CO2 -- 27 BUN -- 5* CREAT -- 0.54 GLUC -- 400* CA -- 9.4 Left Heart Cath December 2017 1. Single-vessel coronary artery disease with a long segment of severe diffuse narrowing in the proximal and midportion of the LAD. Another stenosis in the distal portion. 2. Normal right and circumflex coronary arteries. 3. Normal left heart filling pressures. 4. No evidence of aortic stenosis. 5. The patient will be transferred to [facility] for assessment of myocardial viability and consideration of revascularization of the LAD possibly with bypass grafting. 1. The LEFT MAIN coronary artery is normal, it bifurcates into the LAD and left circumflex coronary arteries and has no disease. 2. The LEFT ANTERIOR DESCENDING extends and stops at just short of the apex of the left ventricle. In the proximal portion, there is severe diffuse disease of the very long segment extending through the midportion of the LAD. The distal portion of the LAD is a small caliber vessel, which fills very slowly and also has another focal stenosis sutures approximately 80%. 3. The LEFT CIRCUMFLEX coronary artery is nondominant to the posterior circulation and has a medium-sized marginal branch and has no disease. 4. The RIGHT CORONARY ARTERY is dominant to the posterior circulation with a medium-sized PDA and has no disease. 5. Left ventricular end-diastolic pressure was normal approximately 15-16 mmHg. 6. There was no gradient on catheter pullback across the aortic valve. Signed: Ghassan Logan MD Date: July 20, 2018 Time: 4:18 PM [facility] Normal [facility] Hemoglobin A1con 07-20-2018 Hemoglobin A1c/Hemoglobin.total mass fraction (Bld) 275 mg/dL Normal [facility] Comment on above: Result Comment: eAG: (Estimated average glucose) is a calculated value from HgbA1c and is desk representative of the average blood glucose level in the last 2-3 month period. Performed By: #### H BA1C ####[facility] [place], [place] [phone] Hemoglobin A1c/Hemoglobin.total mass fraction (Bld) 11.2 % High 4.3-5.6 [facility] Comment on above: Result Comment: [place] Diabetes Association guidelines indicate that patients with HgbA1c in the range 5.7-6.4% are at increased risk for development of diabetes, and intervention by lifestyle modification may be beneficial. HgbA1c greater or equal to 6.5% is considered diagnostic of diabetes. Performed By: #### H BA1C ####[facility] [place], [place] [phone] Hemogram/Diffon 07-20-2018 Abs. Baso 0.06 thou/cmm Normal 0.00-0.08 [facility] Comment on above: Performed By: #### L SHCG #### [place] [address] Abs. [place] 0.45 thou/cmm Normal 0.20-1.00 [facility] Comment on above: Performed By: #### L SHCG #### [place] [address] Abs. Neut (ANC) 7.40 thou/cmm High 3.00-5.67 [facility] Comment on above: Performed By: #### L SHCG #### [facility] [address] [place], [place] [address] Basophils/100 WBC (Bld) 0.6 % Normal [facility] Comment on above: Performed By: #### L SHCG #### [facility] [address] [place], [place] [address] Eosinophils (Bld) [#/Vol] 0.06 thou/cmm Normal 0.00-0.41 [facility] Comment on above: Performed By: #### L SHCG #### [facility] [address] [place], [place] [address] Eosinophils/100 WBC (Bld) 0.6 % Normal [facility] Comment on above: Performed By: #### L SHCG #### [address] [address] Erythrocyte distribution width (RBC) [Ratio] 13.3 % Normal 11.5-15.9 [facility] Comment on above: Performed By: #### L SHCG #### [facility] [address] [place], [place] [address] Hematocrit (Bld) [Volume fraction] 49.9 % High 37.0-47.0 [facility] Comment on above: Performed By: #### L SHCG #### [facility] [address] [place], [place] [address] Hemoglobin (Bld) [Mass/Vol] 17.3 g/dL High 12.0-16.0 [facility] Comment on above: Performed By: #### L SHCG #### [facility] [address] [place], [place] [address] Lymphocytes (Bld) [#/Vol] 1.53 thou/cmm Normal 1.50-3.65 [facility] Comment on above: Performed By: #### L SHCG #### [facility] [address] [place], [place] [address] Lymphocytes/100 WBC (Bld) 16.1 % Normal [facility] Comment on above: Performed By: #### L SHCG #### [facility] [address] [place], [place] [address] MCH (RBC) [Entitic mass] 27.7 pg Normal 27.0-31.0 [facility] Comment on above: Performed By: #### L SHCG #### [facility] [address] [place], [place] [address] MCHC (RBC) [Mass/Vol] 34.7 % Normal 32.0-36.0 [facility] Comment on above: Performed By: #### L SHCG #### [facility] [address] [place] [address] MCV (RBC) [Entitic vol] 80.0 fL Low 81.0-99.0 [facility] Comment on above: Performed By: #### L SHCG #### [place] [address] Monocytes/100 WBC (Bld) 4.7 % Normal [facility] Comment on above: Performed By: #### L SHCG #### [facility] [address] [place] [address] Platelet mean volume (Bld) [Entitic vol] 9.9 fL Normal 7.1-10.5 [facility] Comment on above: Performed By: #### L SHCG #### [facility] [address] [place] [address] Platelets (Bld) [#/Vol] 209 thou/cmm Normal 150-400 [facility] Comment on above: Performed By: #### L SHCG #### [facility] [address] [place], [place] [address] RBC (Bld) [#/Vol] 6.24 mil/cmm High 4.20-5.40 [facility] Comment on above: Performed By: #### L SHCG #### [facility] [address] [place], [place] [address] Seg Neutrophil 78.0 % Normal [facility] Comment on above: Performed By: #### L SHCG #### [place] [phone] WBC (Bld) [#/Vol] 9.5 thou/cmm Normal 4.8-10.8 [facility] Comment on above: Performed By: #### L SHCG #### [facility] [address] [place] [id number] Ketoneson 07-20-2018 Ketones Ql (U) Negative Normal Negative [facility] Comment on above: Performed By: #### L SHCG #### [place] [address] MDRD eGFRon 07-20-2018 GFR/1.73 sq M predicted among non-blacks MDRD (S/P/Bld) [Vol rate/Area] mL/min/{1.73_m2} Normal >60mL/min/ 1.73m2 [facility] Comment on above: Result Comment: If t he patient is , multiply the result by 1.210. Performed By: #### L SHCG #### [place] [address] NURSING PROGon 07-20-2018 Protein mass conc HNO ID: [id number] Author: Dayanara (Rn) CHAYITO Alexander Service: (none) Author Type: Registered Nurse Type: Nursing Progress Note Filed: 07/20/2018 5:58 PM Note Text: Nursing Progress Note Patient Name: Trenton Jackson Patient Location: [place] [id number] Daily Note: 1550 Patient arrived to unit stable condition, tearful, anxious, c/o chest pain and headache, assessment complete, see NPR, lights dimmed, for help with headache, hospitalist paged, heart sounds regular, bowel sounds present, lung sounds diminished, no edema noted. 1745 EKG completed 1800 Patient c/o of headache and nausea medicated per MAR, continues to sob, dinner tray at bedside. HR 120 ST on tele . This note was completed by: Dayanara Alexander RN Normal [facility] Renal Function Panelon 07-20 Albumin mass conc 3.7 g/dL Low 3.9-4.9 [facility] Comment on above: Performed By: #### R FP ####[facility] [address] [place] [address] Anion gap molar conc 8 mmol/L Low 9-18 [facility] Comment on above: Performed By: #### R FP ####[facility] [address] [place] [address] Calcium mass conc 8.7 mg/dL Normal 8.5-10.2 [facility] Comment on above: Performed By: #### R FP ####[facility] [address] [place] [address] Chloride molar conc 100 mmol/L Normal 97-105 [facility] Comment on above: Performed By: #### R FP ####[facility] [address] [place] [address] CO2 molar conc 25 mmol/L Normal 22-30 [facility] Comment on above: Performed By: #### R FP ####[facility] [address] [place] [address] Creatinine mass conc 0.50 mg/dL Low 0.58-0.96 [facility] Comment on above: Performed By: #### R FP ####[facility] [address] [place] [address] eGFR- Amer. >60 Normal [facility] Comment on above: Performed By: #### R FP ####[facility] [address] [place] [address] GFR/1.73 sq M predicted among non-blacks MDRD vol rate/area (S/P/Bld) mL/min/{1.73_m2} Normal [facility] Comment on above: Result Comment: eGFR (Estimated GFR) Units of measure: mL/min/1.73 meters squared eGFR is derived from the reexpressed MDRD Study equation using the following parameters: serum creatinine, age, gender and race. The creatinine assay has been calibrated to be traceable to IDMS. An eGFR <60 mL/min/1.73m2 for >3 months is consistent with chronic kidney disease. Refer to KDOQI guidelines for clinical interpretation. In patients with unstable renal function, e.g. those with acute kidney injury, the eGFR may not accurately reflect actual GFR. Performed By: #### R FP ####[facility] [address] [place] [address] Glucose mass conc 247 mg/dL High 74-99 [facility] Comment on above: Result Comment: The [place] Diabetes Association (ADA) provides guidance for cutoff values for fasting glucose and random glucose. The ADA defines fasting as no caloric intake for at least 8 hours. Fasting plasma glucose results between 100 to 125 mg/dL indicate increased risk for diabetes (prediabetes). Fasting plasma glucose results greater than or equal to 126 mg/dL meet the criteria for diagnosis of diabetes. In the absence of unequivocal hyperglycemia, results should be confirmed by repeat testing. In a patient with classic symptoms of hyperglycemia or hyperglycemic crisis, random plasma glucose results greater than or equal to 200 mg/dL meet the criteria for diagnosis of diabetes. Reference: Standards of Medical Care in Diabetes 2016, [place] Diabetes Association. Diabetes Care. 2016.39(Suppl 1). Performed By: #### R FP ####[facility] [address] [place] [address] Phosphate mass conc 2.9 mg/dL Normal 2.7-4.8 [facility] Comment on above: Performed By: #### R FP ####[facility] [address] [place] [address] Potassium molar conc 4.2 mmol/L Normal 3.5-4.9 [facility] Comment on above: Performed By: #### R FP ####[facility] [address] [place] [address] Result Comment: Test ing performed on an [employer] i-STAT. Performed By: #### L SHCG #### [place] [address] Sodium molar conc 133 mmol/L Low 136-144 [facility] Comment on above: Performed By: #### R FP ####[facility] [address] [place] [address] Urea nitrogen mass conc 5 mg/dL Low 7-21 [facility] Comment on above: Performed By: #### R FP ####[facility] [address] [place] [address] Troponin Ion 02-16-2019 Troponin I.cardiac [Mass/Vol] ng/mL Normal <=0.07 [facility] Comment on above: Performed By: #### L SHCG #### [facility] [address] [place], [place] [address] Troponin Ton 07-20-2018 Troponin T.cardiac mass conc ug/L Normal 0.000-0.02 9 [facility] Comment on above: Performed By: #### T NT ####[facility] [address] [place] [phone] CT ABDOMEN AND PELVIS WITH C ONTRASTon 06-26-2018 CT ABDOMEN AND PELVIS WITH CONTRAST Performed at [facility] APPROVED BY: Nixon Cortez MD EXAM TITLE: CT OF THE ABDOMEN AND PELVIS WITH INTRAVENOUS CONTRAST DATE:06/26/2018 10:52 COMPARISON: CT abdomen 06/07/2018 CLINICAL INDICATION/HISTORY: Left lower quadrant pain in the inguinal region; recent treatment for diverticulitis; pain has not resolved CT Radiation dose: Integrated Dose-length product (DLP) for this visit = 719 mGy*cm. CT Dose Reduction Employed: Automated exposure control (AEC) was used. TECHNIQUE: Following the administration of 150 cc Omnipaque 300 intravenous contrast axial images were obtained of the abdomen and pelvis in a single portal-venous phase. Oral contrast was not administered. FINDINGS: Included lung bases and lower thorax: A left-sided 3 cm pericardial cyst is again noted. There is mild pericardial thickening or fluid anteriorly. This is similar compared to the recent exam. Included osseous structures: Unremarkable Liver: 17 mm hypodense lesion within the right hepatic lobe. No significant change compared to 2014. This is therefore benign. 2 cm hypodense lesion anterior aspect right hepatic lobe, also stable compared to prior exams and therefore benign. No new or suspicious hepatic abnormality is seen. Gallbladder and extrahepatic bile duct: Surgically absent gallbladder. No significant ductal dilatation. Pancreas and spleen: Pancreas is unremarkable. There are numerous tiny hypodensities throughout the spleen which appears similar compared to the recent exam. These may represent tiny cysts. Adrenal glands: There is a 2 cm left adrenal mass without significant change compared to 2014. There is a 1.6 cm right adrenal mass, also not significantly changed. Kidneys: Right kidney is unremarkable. No calculus or hydronephrosis. There is a 1.5 cm left renal cyst. No calculus or hydronephrosis. Ureters: No abnormal dilatation or obstructing calculus is seen. Urinary Bladder: Adequately distended with no specific abnormality seen. Pelvic Organs: Unremarkable Stomach and small bowel: Unremarkable. No evidence of obstruction or acute inflammatory process. Large bowel: There is mild diverticulosis of the sigmoid colon. No focal inflammation is seen to indicate acute diverticulitis. No perforation or abscess formation. There are scattered diverticula throughout the remainder of the colon with no acute abnormality seen. Appendix: Surgical staple line of the cecum suggesting prior appendectomy. No peritoneal free air, free fluid or lymphadenopathy is seen. The aorta is normal in caliber. IMPRESSION: 1. Mild diverticulosis of the sigmoid colon. No focal evidence of acute diverticulitis. No perforation or abscess formation is seen. The overall appearance is significantly improved compared to 2. Multiple chronic findings as detailed above. Normal [facility] Comprehensive Panelon 2018 Albumin [Mass/Vol] 3.9 g/dL Normal 3.4-5.0 [facility] Comment on above: Performed By: #### L ACET #### [place] [address] ALP [Catalytic activity/Vol] 118 U/L High 46-116 [facility] Comment on above: Performed By: #### L ACET #### [place] [address] ALT-SGPT Blood 18 U/L Normal 14-63 [facility] Comment on above: Performed By: #### L ACET #### [place] [address] Anion gap [Moles/Vol] 18 mmol/L Normal 8-20 [facility] Comment on above: Performed By: #### L ACET #### [place] [address] AST-SGOT Blood 19 U/L Normal 15-37 [facility] Comment on above: Performed By: #### L ACET #### [place] [address] Bilirubin Ql (U) 1.5 mg/dL High 0.2-1.0 [facility] Comment on above: Performed By: #### L ACET #### [facility] [address] [place], [place] [address] Calcium [Mass/Vol] 9.4 mg/dL Normal 8.5-10.1 [facility] Comment on above: Performed By: #### L ACET #### [facility] [address] [place], [place] [address] Chloride [Moles/Vol] 93 mmol/L Low 98-107 [facility] Comment on above: Performed By: #### L ACET #### [facility] [address] [place], [place] [address] CO2 Blood 25 mEq/L Normal 21-32 [facility] Comment on above: Performed By: #### L ACET #### [facility] [address] [place], [place] [address] Creatinine [Mass/Vol] 0.64 mg/dL Normal 0.51-0.95 [facility] Comment on above: Performed By: #### L ACET #### [facility] [address] [place], [place] [address] Glucose [Mass/Vol] 443 mg/dL Critically high 70-99 [facility] Comment on above: Performed By: #### L ACET #### [facility] [address] [place], [place] [address] Potassium [Moles/Vol] 4.0 mmol/L Normal 3.5-5.1 [facility] Comment on above: Performed By: #### L ACET #### [address] [address] Protein [Mass/Vol] 8.0 g/dL Normal 6.4-8.2 [facility] Comment on above: Performed By: #### L ACET #### [facility] [address] [place], [place] [address] Sodium [Moles/Vol] 132 mmol/L Low 136-145 [facility] Comment on above: Performed By: #### L ACET #### [address] [address] Urea nitrogen [Mass/Vol] 8 mg/dL Normal 7-25 [facility] Comment on above: Performed By: #### L ACET #### [facility] [address] [address] Urea nitrogen/Creatinine [Mass ratio] 13 mg/mg Normal 10-20 [facility] Comment on above: Performed By: #### L ACET #### [facility] [address] [address] Hemogram/Manual Diffon 06-26 Abs. Baso 0.00 thou/cmm Normal 0.00-0.08 [facility] Comment on above: Performed By: #### L ACET #### [facility] [address] [address] Abs. Eosin 0.00 thou/cmm Normal 0.00-0.41 [facility] Comment on above: Performed By: #### L ACET #### [facility] [address] [address] Abs. Lymph 2.58 thou/cmm Normal 1.50-3.65 [facility] Comment on above: Performed By: #### L ACET #### [facility] [address] [address] Abs. Erie 0.78 thou/cmm Normal 0.20-1.00 [facility] Comment on above: Performed By: #### L ACET #### [facility] [address] [address] Abs. Neut (ANC) 7.84 thou/cmm High 3.00-5.67 [facility] Comment on above: Performed By: #### L ACET #### [facility] [address] [address] Basophil 0.0 % Normal [facility] Comment on above: Performed By: #### L ACET #### [facility] [address] [address] Eosinophil 0.0 % Normal [facility] Comment on above: Performed By: #### L ACET #### [place] [address] Lymphocyte 23.0 % Normal [facility] Comment on above: Performed By: #### L ACET #### [facility] [address] [address] Monocyte 7.0 % Normal [facility] Comment on above: Performed By: #### L ACET #### [facility] [address] [place] [address] Platelets (Bld) [#/Vol] Normal Normal [facility] Comment on above: Performed By: #### L ACET #### [facility] [address] [address] RBC morphology finding Nom (Bld) Normal Normal [facility] Comment on above: Performed By: #### L ACET #### [facility] [address] [address] Seg Neutrophil 70.0 % Normal [facility] Comment on above: Performed By: #### L ACET #### [place] [address] Diff Type Manual Diff Normal [facility] Comment on above: Performed By: #### L ACET #### [place] [address] Erythrocyte distribution width (RBC) [Ratio] 13.1 % Normal 11.5-15.9 [facility] Comment on above: Performed By: #### L ACET #### [place] [address] Hematocrit (Bld) [Volume fraction] 49.0 % High 37.0-47.0 [facility] Comment on above: Performed By: #### L ACET #### [place] [address] Hemoglobin (Bld) [Mass/Vol] 16.9 g/dL High 12.0-16.0 [facility] Comment on above: Performed By: #### L ACET #### [place] [address] MCH (RBC) [Entitic mass] 27.6 pg Normal 27.0-31.0 [facility] Comment on above: Performed By: #### L ACET #### [place] [address] MCHC (RBC) [Mass/Vol] 34.5 % Normal 32.0-36.0 [facility] Comment on above: Performed By: #### L ACET #### [facility] [address] [address] MCV (RBC) [Entitic vol] 79.9 fl Low 81.0-99.0 [facility] Comment on above: Performed By: #### L ACET #### [place] [address] Platelet mean volume (Bld) [Entitic vol] 9.9 fl Normal 7.1-10.5 [facility] Comment on above: Performed By: #### L ACET #### [place] [address] Platelets (Bld) [#/Vol] 276 thou/cmm Normal 150-400 [facility] Comment on above: Performed By: #### L ACET #### [place] [address] RBC (Bld) [#/Vol] 6.13 mil/cmm High 4.20-5.40 [facility] Comment on above: Performed By: #### L ACET #### [place] [address] WBC (Bld) [#/Vol] 11.2 thou/cmm High 4.8-10.8 [facility] Comment on above: Performed By: #### L ACET #### [place] [address] Ketoneson 06-26-2018 Ketones Ql (U) Negative Normal Negative [facility] Comment on above: Performed By: #### L SHCG #### [place] [address] Lipase Bloodon 06-26-2018 Lipase Blood 161 U/L Normal 73-393 [facility] Comment on above: Performed By: #### L ACET #### [place] [address] MDRD eGFRon 06-26-2018 GFR/1.73 sq M predicted among non-blacks MDRD (S/P/Bld) [Vol rate/Area] mL/min/{1.73_m2} Normal >60mL/min/ 1.73m2 [facility] Comment on above: Result Comment: If t he patient is , multiply the result by 1.210. Performed By: #### L ACET #### [place] [address] Macroscopic Urinalysison Appearance (U) CLEAR Normal [facility] Comment on above: Performed By: #### L ACET #### [place] [address] Bilirubin Urine Negative Normal Negative [facility] Comment on above: Performed By: #### L ACET #### [place] [address] Color (U) YELLOW Normal [facility] Comment on above: Performed By: #### L ACET #### [place] [address] Glucose Ql (U) 3+ Abnormal Negative [facility] Comment on above: Performed By: #### L ACET #### [place] [address] Hemoglobin,Urine Negative Normal Negative [facility] Comment on above: Performed By: #### L ACET #### [place] [address] Ketone Urine Negative Normal Negative [facility] Comment on above: Performed By: #### L ACET #### [place] [address] Leukocytes Esterase Negative Normal Negative [facility] Comment on above: Performed By: #### L ACET #### [place] [address] Nitrites Urine Negative Normal Negative [facility] Comment on above: Performed By: #### L ACET #### [place] [address] pH (U) 6.0 [pH] Normal 5.0-8.0 [facility] Comment on above: Performed By: #### L ACET #### [place] [address] Protein (U) [Mass/Vol] Negative Normal Negative [facility] Comment on above: Performed By: #### L ACET #### [facility] [address] [place] [address] Specific [place], Ur 1.015 Normal 1.005-1 .03 0 [facility] Comment on above: Performed By: #### L ACET #### [facility] [address] [place] [address] Urobilinogen,Ur 0.2 EU/dL Normal 0.0-1.0 [facility] Comment on above: Performed By: #### L ACET #### [facility] [address] [place] [address] CASE MANAGEMon 06-12-2018 CASE MANAGEM HNO ID: [id number] Author: Rey Markham (Sw) Service: Care Management Author Type: Front End Specialist Type: Care Mgt Progress Note Filed: 06/12/2018 3:22 PM Note Text: CARE MANAGEMENT DISCHARGE NOTE SERVICE DATE: 06/12/2018 SERVICE TIME: 3:21 PM LOS: 2 days Admission Date: 06/08/2018 DISCHARGE ARRANGEMENT (list agency and phone number) Home Provider: N/A Phone: N/A CAREGIVER ASSESSMENT: Caregiver is ready, willing and able to meet the patient's needs as recommended by the inter-professional team? No Caregiver Needed Patient's transition needs and plan for meeting these needs: Pt. Able to meet her own basic needs. Does the patient have an acute stroke diagnosis, or has the patient had a stroke during this admission? No HANDOFF COMMUNICATION: Primary Care Physician: Dr. Conteh TRANSPORTATION ARRANGEMENTS: Car Family to transport pt. home ADDITIONAL CONTACT RESOURCES: N/A Needs Prior to Discharge: None;Ready for Discharge Pt. Will discharge home w/basic needs. KIKE will remain available should any further discharge planning needs arise. SIGNATURE: Rey Markham PLUMBER'S HELPER, ON SITE MANAGER, ESTEFANIA-KIKE PATIENT NAME: Trenton Jackson DATE: June 12, 2018 TIME: 3:21 PM PAGER/CONTACT #: Normal [facility] 06-12-2018 Erythrocyte distribution width Ratio (RBC) 13.1 % Normal 11.5-15.0 [facility] Comment on above: Performed By: #### C BC, CMP, MG1 ####[facility] [address] [place] [address] Hematocrit Volume Fraction (Bld) 39.0 % Normal 36.0-46.0 [facility] Comment on above: Performed By: #### C BC, CMP, MG1 ####[facility] [address] [place] [address] Hemoglobin mass conc (Bld) 13.0 g/dL Normal 11.5-15.5 [facility] Comment on above: Performed By: #### C BC, CMP, MG1 ####[facility] [address] [place] [address] MCH Entitic mass (RBC) 27.5 pG Normal 26.0-34.0 [facility] Comment on above: Performed By: #### C BC, CMP, MG1 ####[facility] [address] [place] [address] MCHC mass conc (RBC) 33.3 g/dL Normal 30.5-36.0 [facility] Comment on above: Performed By: #### C BC, CMP, MG1 ####[facility] [address] [place] [address] MCV Entitic volume (RBC) 82.5 fL Normal 80.0-100.0 [facility] Comment on above: Performed By: #### C BC, CMP, MG1 ####[facility] [address] [place] [address] Platelet mean volume Entitic volume (Bld) 9.6 fL Normal 9.0-12.7 [facility] Comment on above: Performed By: #### C BC, CMP, MG1 ####[facility] [address] [place] [address] Platelets #/vol (Bld) 202 10*3/uL Normal 150-400 [facility] Comment on above: Performed By: #### C BC, CMP, MG1 ####[facility] [address] [place] [address] RBC #/vol (Bld) 4.73 10*6/uL Normal 3.90-5.20 [facility] Comment on above: Performed By: #### C BC, CMP, MG1 ####[facility] C[address]38 [phone] WBC #/vol (Bld) 9.75 10*3/uL Normal 3.70-11.00 [facility] Comment on above: Performed By: #### C BC, CMP, MG1 ####[facility] Ezryvdmivc9242 [phone] CONSULT PROGon 06-12-2018 Protein mass conc HNO ID: [id number] Author: Jasvir Kumar Service: Gastroenterology Author Type: Physician Type: Consult Progress Note Filed: 06/12/2018 12:18 PM Note Text: GASTROENTEROLOGY CONSULT PROGRESS NOTE Patient Name: Trenton Jackson SERVICE DATE: June 12, 2018 SERVICE TIME: 10:40 AM IMPRESSION: 1- Acute uncomplicated sigmoid diverticulitis (recurrent, prior episodes 2015, 2017) 2- Chronic constipation, irregular bowel habits 3- GERD, prior pipe 4- Poorly controlled DM (HgbA1c consistently >10) 5- Leukocytosis ? PLAN: - Switch antibiotics to oral - Omnicef 300 mg po BID / Flagyl 500 mg po TID - complete 10 more days (total ~14 days) - Miralax 17 gm po daily (titrate to BMx1/day) - Protonix 40 mg IV daily - switch to PO - GI soft diet - ASA 81 mg daily - Ambulation encouraged - Avoid narcotics as able - Follow labs - Recommend outpatient, elective colonoscopy in ~6 weeks. Discussed importance of follow-up with radiologic technology teacher in network with her insurance. Patient seen and examined. Discussed with mid level provider. Jones findings confirmed. Plan as outlined. OK for D/C from GI standpoint. Jasvir Kumar MD June 12, 2018 12:17 PM INTERVAL HPI: Patient reports feeling better today. Continues to have mild LLQ pain and nausea. No vomiting. Tolerated Gi soft diet well for breakfast this am. Had multiple liquid brown stools overnight. PHYSICAL EXAM: Patient Vitals for the past 24 hrs: BP Temp Temp src Pulse Resp SpO2 Weight 06/12/18 0817 121/70 36.7 ?C (98.1 ?F) Oral 87 17 96 % - 06/12/18 0600 - - - - - - 85.3 kg (188 lb 1.6 oz) 06/11/18 2230 128/79 36.9 ?C (98.4 ?F) Oral 81 18 97 % - 06/11/18 1517 115/65 37 ?C (98.6 ?F) Oral 88 18 97 % - ? GENERAL: Alert and oriented x 3. Appears comfortable. NAD. HEENT: No pallor. No scleral icterus LUNGS: Clear to auscultation anteriorly CARDIAC: RRR ABDOMEN: Soft. Non distended. Tender LLQ. Bowel sounds present. No guarding or rebound tenderness. ? EXTREMITIES: No edema to ODETTE lower extremities MEDICATIONS: Current hospital medications: traMADol 50 mg tab(s) (ULTRAM) 50 mg ORAL q 6 H PRN polyethylene glycol 3350 17 g packet (MIRALAX, GLYCOLAX) 17 g ORAL DAILY bisacodyl 10 mg suppository (DULCOLAX) 10 mg RECTAL DAILY PRN insulin glargine 40 Units injection (long acting) (LANTUS) 40 Units SUBCUTANEOUS AT BEDTIME insulin lispro injection (rapid acting) (HumaLOG) SUBCUTANEOUS w MEALS insulin lispro injection (rapid acting) (HumaLOG) SUBCUTANEOUS AT BEDTIME metoprolol succinate ER 25 mg tab(s) (TOPROL XL) 25 mg ORAL AT BEDTIME atorvastatin 80 mg tab(s) (LIPITOR) 80 mg ORAL AT BEDTIME NaCl 0.9% 3-5 mL 3-5 mL INTRAVENOUS q 12 H enoxaparin 40 mg injection (LOVENOX) 40 mg SUBCUTANEOUS DAILY ondansetron (PF) 4 mg injection (ZOFRAN) 4 mg INTRAVENOUS q 6 H PRN cefTRIAXone 1 g in D5W 100 mL MB+ (ROCEPHIN) 1 g INTRAVENOUS q 24 H metroNIDAZOLE 500 mg PREMIX piggyback (FLAGYL) 500 mg INTRAVENOUS q 8 H dextrose 40 % 15 g 15 g ORAL PRN glucagon 1 mg injection (GLUCAGEN) 1 mg INTRAMUSCULAR PRN dextrose 50% in water 25 mL syringe 12.5 g INTRAVENOUS PRN lisinopril 10 mg tab(s) (ZESTRIL, PRINIVIL) 10 mg ORAL DAILY aspirin, enteric coated 81 mg tab(s) 81 mg ORAL DAILY pantoprazole 40 mg injection (PROTONIX) 40 mg INTRAVENOUS DAILY (6 AM) albuterol 2.5 mg /3 mL (0.083 %) 2.5 mg (PROVENTIL) 3 mL INHALATION q 6 H PRN LABS: CBC, Coags, BMP, Mg, Phos Recent Labs 06/12/1852106/11/18 0800 06/10/18 0512 WBC 9.75 13.52* 10.93 HB 13.0 15.4 13.4 HCT 39.0 45.8 41.1 PLT 202 260 202 NA 137 137 138 K 4.2 3.9 3.4* CHLOR 101 101 102 CO2 28 25 28 BUN 5* 5* 6* CREAT 0.64 0.61 0.62 GLUC 162* 123* 142* CA 9.0 9.0 8.8 MG 1.6* 1.8 1.8 Liver Function, Amylase, AND Lipase Recent Labs 06/12/1852106/11/18 0806/10/18 0512 TPROT 5.6* 6.5 5.5* ALB 3.0* 3.4* 3.0* ALT 17 18 11 AST 25 31 16 ALKPHOS 80 93 76 TBILI 0.5 0.8 0.6 [facility] LABS: Component Latest Ref Rng AND Units 06/07/2018 06/08/2018 Lactic Acid 0.4 - 2.0 mEq/L 1.6 1.2 HCG Qualitative, Urine Negative ? Negative NT Pro BNP <125 pg/mL ? 763 (H) ? RADIOLOGY: 06/04/2018 CT A/P IMPRESSION: 1. ?Edema of the sigmoid colon which would be consistent with acute diverticulitis. ?No perforation or abscess formation. 2. ?Mildly increased fluid content of the small bowel, presumably reactive to the colonic process. 3. ?Multiple additional stable chronic findings as above ? 06/07/2018 CT A/P Liver: ?Stable 2 cm hypodense lesion in the right hepatic lobe on axial image 15. ?Stable 2.2 cm subcapsular hypodense lesion anterior-inferior right hepatic lobe on axial image 31. ?? Biliary: No bile duct dilation. ?Cholecystectomy clips Spleen: No mass. No splenomegaly. Pancreas: No mass or duct dilation. Adrenals: Stable bilateral adrenal nodules Kidneys: No evidence hydronephrosis GI tract: Compared to 06/04/2018 CT, interval decrease in wall thickening of the sigmoid colon. ?Interval decrease in pericolonic inflammation at the distal descending/sigmoid junction consistent with a decrease in severity of acute diverticulitis. No focal drainable abscess. Moderate volume retained fecal material throughout the colon. ?Interval decrease in retained fluid throughout the small bowel which is no longer distended Status post appendectomy Lymph nodes: No abdominal or pelvic lymphadenopathy. Mesentery/Peritoneum: No ascites or mass. ?No evidence of pneumoperitoneum Retroperitoneum: No mass. Vasculature: ?The celiac axis and SMA are patent. The portal vein and branches, splenic vein, SMV, and hepatic veins are patent. ? Pelvis: No mass, ascites or fluid collection. ?No evidence of a gynecological mass Bones/Soft Tissues: Unremarkable Lower thorax: Unremarkable. IMPRESSION: 1.Compared to 06/04/2018 CT, interval decrease in severity of acute diverticulitis. ?There remains a mild degree of acute inflammation of the sigmoid colon, seen best axial image 90. 2. ?No evidence of an abscess or pneumoperitoneum ? 06/08/2018 Acute abdominal series IMPRESSION: Moderate volume of fecal material throughout the colon. ? MOST RECENT EGD: 02/01/2016 Justin Frederick MD d/t nausea and vomiting 1. Lower esophageal sphincter at 38 cm 2. Biopsies for histology taken 3. No other mucosal abnormalities Bx: Unavailable ? MOST RECENT COLONOSCOPY: 01/22/2016 with Justin Frederick MD for diarrhea 1. Colon polyps in cecum in the mid ascending 2. Normal mucosa throughout, biopsied 3. Multiple large diverticulum in the sigmoid and descending colon Bx: unavailable ? SIGNATURE: Prudence Edwards, WORM RAISER DATE: June 12, 2018 TIME: 10:40 AM Normal [facility] Comp Metabolic Panelon 06-12 Albumin mass conc 3.0 g/dL Low 3.9-4.9 [facility] Comment on above: Performed By: #### C BC, CMP, MG1 ####[facility] [address] [place] [phone] ALP enzyme act/vol 80 U/L Normal 34-123 [facility] Comment on above: Performed By: #### C BC, CMP, MG1 ####[facility] [address] [place] [address] ALT enzyme act/vol 17 U/L Normal 7-38 [facility] Comment on above: Performed By: #### C BC, CMP, MG1 ####[facility] [address] [place] [address] Anion gap molar conc 8 mmol/L Low 9-18 [facility] Comment on above: Performed By: #### C BC, CMP, MG1 ####[facility] [address] [place] [address] AST enzyme act/vol 25 U/L Normal 13-35 [facility] Comment on above: Performed By: #### C BC, CMP, MG1 ####[facility] [address] [place] [address] Bilirubin mass conc 0.5 mg/dL Normal 0.2-1.3 [facility] Comment on above: Performed By: #### C BC, CMP, MG1 ####[facility] [address] [place] [address] Calcium mass conc 9.0 mg/dL Normal 8.5-10.2 [facility] Comment on above: Performed By: #### C BC, CMP, MG1 ####[facility] [address] [place] [address] Chloride molar conc 101 mmol/L Normal 97-105 [facility] Comment on above: Performed By: #### C BC, CMP, MG1 ####[facility] [address] [place] [address] CO2 molar conc 28 mmol/L Normal 22-30 [facility] Comment on above: Performed By: #### C BC, CMP, MG1 ####[facility] [address] [place] [address] Creatinine mass conc 0.64 mg/dL Normal 0.58-0.96 [facility] Comment on above: Performed By: #### C BC, CMP, MG1 ####[facility] [address] [place] [address] eGFR- Amer. >60 Normal [facility] Comment on above: Performed By: #### C DELIA WILSON MG1 ####[facility] M[address]ng[address]lo2759 [address] GFR/1.73 sq M predicted among non-blacks MDRD vol rate/area (S/P/Bld) mL/min/{1.73_m2} Normal [facility] Comment on above: Result Comment: eGFR (Estimated GFR) Units of measure: mL/min/1.73 meters squared eGFR is derived from the reexpressed MDRD Study equation using the following parameters: serum creatinine, age, gender and race. The creatinine assay has been calibrated to be traceable to IDMS. An eGFR <60 mL/min/1.73m2 for >3 months is consistent with chronic kidney disease. Refer to KDOQI guidelines for clinical interpretation. In patients with unstable renal function, e.g. those with acute kidney injury, the eGFR may not accurately reflect actual GFR. Performed By: #### C DELIA WILSON, MG1 ####[facility] [address] [place] [id number] Glucose mass conc 162 mg/dL High 74-99 [facility] Comment on above: Result Comment: The [place] Diabetes [employer] (ADA) provides guidance for cutoff values for fasting glucose and random glucose. The ADA defines fasting as no caloric intake for at least 8 hours. Fasting plasma glucose results between 100 to 125 mg/dL indicate increased risk for diabetes (prediabetes). Fasting plasma glucose results greater than or equal to 126 mg/dL meet the criteria for diagnosis of diabetes. In the absence of unequivocal hyperglycemia, results should be confirmed by repeat testing. In a patient with classic symptoms of hyperglycemia or hyperglycemic crisis, random plasma glucose results greater than or equal to 200 mg/dL meet the criteria for diagnosis of diabetes. Reference: Standards of Medical Care in Diabetes 2016, [place] [employer]. Diabetes Care. 2016.39(Suppl 1). Performed By: #### C DELIA WILSON, MG1 ####[facility] [address] [place] [address] Potassium molar conc 4.2 mmol/L Normal 3.7-5.1 [facility] Comment on above: Performed By: #### C DELIA WILSON, MG1 ####[facility] [address] [place] [address] Protein mass conc 5.6 g/dL Low 6.3-8.0 [facility] Comment on above: Performed By: #### C BC, CMP, MG1 ####[facility] [address] [place] [address] Sodium molar conc 137 mmol/L Normal 136-144 [facility] Comment on above: Performed By: #### C BC, CMP, MG1 ####[facility] [address] [place] [address] Urea nitrogen mass conc 5 mg/dL Low 7-21 [facility] Comment on above: Performed By: #### C BC, CMP, MG1 ####[facility] [address] [place] [address] Magnesiumon 06-12-2018 Magnesium mass conc 1.6 mg/dL Low 1.7-2.3 [facility] Comment on above: Performed By: #### C BC, CMP, MG1 ####[facility] [address] [place] [address] NURSING PROGon 06-12-2018 Protein mass conc HNO ID: [id number] Author: Bina (Rn) CHAYITO Montiel Service: (none) Author Type: Registered Nurse Type: Nursing Progress Note Filed: 06/12/2018 6:50 AM Note Text: Nursing Progress Note Patient Name: Trenton Jackson Patient Location: [address] Daily Note: Paged the hospital list regarding patient's magnesium level this AM. This note was completed by: Bina Montiel RN [facility] [place] CBCon 06-11-2018 Erythrocyte distribution width Ratio (RBC) 13.4 % Normal 11.5-15.0 [facility] Comment on above: Performed By: #### C BC, CMP, MG1 ####[facility] [address] [place] [address] Hematocrit Volume Fraction (Bld) 45.8 % Normal 36.0-46.0 [facility] Comment on above: Performed By: #### C BC, CMP, MG1 ####[facility] [address] [place] [address] Hemoglobin mass conc (Bld) 15.4 g/dL Normal 11.5-15.5 [facility] Comment on above: Performed By: #### C BC, CMP, MG1 ####[facility] [address] [place] [address] MCH Entitic mass (RBC) 27.5 pG Normal 26.0-34.0 [facility] Comment on above: Performed By: #### C BC, CMP, MG1 ####[facility] [address] [place] [address] MCHC mass conc (RBC) 33.6 g/dL Normal 30.5-36.0 [facility] Comment on above: Performed By: #### C BC, CMP, MG1 ####[facility] [address] [place] [address] MCV Entitic volume (RBC) 81.8 fL Normal 80.0-100.0 [facility] Comment on above: Performed By: #### C BC, CMP, MG1 ####[facility] [address] [place] [address] Platelet mean volume Entitic volume (Bld) 10.0 fL Normal 9.0-12.7 [facility] Comment on above: Performed By: #### C BC, CMP, MG1 ####[facility] [address] [place] [address] Platelets #/vol (Bld) 260 10*3/uL Normal 150-400 [facility] Comment on above: Performed By: #### C BC, CMP, MG1 ####[facility] [address] [place] [address] RBC #/vol (Bld) 5.60 10*6/uL High 3.90-5.20 [facility] Comment on above: Performed By: #### C BC, CMP, MG1 ####[facility] [address] [place] [address] WBC #/vol (Bld) 13.52 10*3/uL High 3.70-11.00 [facility] Comment on above: Performed By: #### C BC, CMP, MG1 ####[facility] [address] [place] [phone] CONSULT Josephn 06-11-2018 Protein mass conc HNO ID: [id number] Author: Jasvir Kumar Service: Gastroenterology Author Type: Physician Type: Consult Progress Note Filed: 06/11/2018 10:49 AM Note Text: GASTROENTEROLOGY CONSULT PROGRESS NOTE Patient Name: Trenton Jackson SERVICE DATE: June 11, 2018 SERVICE TIME: 10:11 AM IMPRESSION: 1- Acute uncomplicated sigmoid diverticulitis (recurrent, prior episodes 2015, 2016) 2- Chronic constipation, irregular bowel habits 3- GERD, prior pipe 4- Poorly controlled DM (HgbA1c consistently >10) 5- Leukocytosis ? PLAN: - Continue clear liquid diet - Give extra dose of Zofran now - Miralax 17 gm po daily - Protonix 40 mg IV daily - Continue IV Rocephin/Flagyl (06/08) - ASA 81 mg daily - Ambulation encouraged - Avoid narcotics as able - Follow labs - Recommend outpatient, elective colonoscopy in ~6 weeks Patient seen and examined. Discussed with mid level provider. Jones findings confirmed. Plan as outlined. Despite 2 days of laxative therapy, has had just one small hard stool. Would repeat Miralax, Dulcolax and Reglan again today and once having BM's, OK for D/C from GI standpoint. Rest as above. Jasvir Kumar MD June 11, 2018 10:46 AM INTERVAL HPI: Patient had small hard brown stool this am following Miralax 34 grams x 3, Dulcolax 10 mg x 2 yesterday. Reports is nauseated and had small volume emesis last evening and this am described as bilious material. Continues to have left sided abdominal pain. She continues to have Morphine for pain and has received 5 doses of 4 mg in past 24 hours. PHYSICAL EXAM: Patient Vitals for the past 24 hrs: BP Temp Temp src Pulse Resp SpO2 Weight 06/11/18 0722 128/83 36.6 ?C (97.9 ?F) Oral 79 18 98 % - 06/11/18 0700 - - - - - - 85.5 kg (188 lb 9.6 oz) 06/11/18 0600 - - - - - - 85.5 kg (188 lb 9.6 oz) 06/11/18 0409 102/57 37.1 ?C (98.8 ?F) Oral 83 20 96 % - 06/10/18 2313 132/77 37.2 ?C (99 ?F) Oral 83 20 98 % - 06/10/18 2020 120/71 37 ?C (98.6 ?F) Oral 80 18 98 % - 06/10/18 1449 132/80 37.1 ?C (98.8 ?F) Oral 78 18 100 % - 06/10/18 1052 118/67 36.6 ?C (97.9 ?F) Oral 75 16 96 % - GENERAL: Alert and oriented x 3. Appears comfortable. NAD. HEENT: No pallor. No scleral icterus LUNGS: Clear to auscultation anteriorly CARDIAC: RRR ABDOMEN: Soft. Non distended. Left sided tenderness. Bowel sounds hypoactive. No guarding or rebound tenderness. EXTREMITIES: No edema to ODETTE lower extremities MEDICATIONS: Current hospital medications: bisacodyl 10 mg suppository (DULCOLAX) 10 mg RECTAL DAILY PRN insulin glargine 40 Units injection (long acting) (LANTUS) 40 Units SUBCUTANEOUS AT BEDTIME morphine 4 mg injection 4 mg INTRAVENOUS q 4 H PRN insulin lispro injection (rapid acting) (HumaLOG) SUBCUTANEOUS w MEALS insulin lispro injection (rapid acting) (HumaLOG) SUBCUTANEOUS AT BEDTIME metoprolol succinate ER 25 mg tab(s) (TOPROL XL) 25 mg ORAL AT BEDTIME atorvastatin 80 mg tab(s) (LIPITOR) 80 mg ORAL AT BEDTIME NaCl 0.9% 3-5 mL 3-5 mL INTRAVENOUS q 12 H enoxaparin 40 mg injection (LOVENOX) 40 mg SUBCUTANEOUS DAILY ondansetron (PF) 4 mg injection (ZOFRAN) 4 mg INTRAVENOUS q 6 H PRN cefTRIAXone 1 g in D5W 100 mL MB+ (ROCEPHIN) 1 g INTRAVENOUS q 24 H metroNIDAZOLE 500 mg PREMIX piggyback (FLAGYL) 500 mg INTRAVENOUS q 8 H dextrose 40 % 15 g 15 g ORAL PRN glucagon 1 mg injection (GLUCAGEN) 1 mg INTRAMUSCULAR PRN dextrose 50% in water 25 mL syringe 12.5 g INTRAVENOUS PRN lisinopril 10 mg tab(s) (ZESTRIL, PRINIVIL) 10 mg ORAL DAILY aspirin, enteric coated 81 mg tab(s) 81 mg ORAL DAILY pantoprazole 40 mg injection (PROTONIX) 40 mg INTRAVENOUS DAILY (6 AM) albuterol 2.5 mg /3 mL (0.083 %) 2.5 mg (PROVENTIL) 3 mL INHALATION q 6 H PRN LABS: CBC, Coags, BMP, Mg, Phos Recent Labs 06/11/18 0800 06/10/18 0512 06/09/18 1101 06/09/18 0619 WBC 13.52* 10.93 -- 8.16 HB 15.4 13.4 -- 14.0 HCT 45.8 41.1 -- 42.5 PLT 260 202 -- 217 NA 137 138 134* -- K 3.9 3.4* 3.6* -- CHLOR 101 102 98 -- CO2 25 28 22 -- BUN 5* 6* 5* -- CREAT 0.61 0.62 0.60 -- GLUC 123* 142* 313* -- CA 9.0 8.8 8.6 -- MG 1.8 1.8 -- 1.8 Liver Function, Amylase, AND Lipase Recent Labs 06/11/18 0800 06/10/18 0512 06/09/18 1101 TPROT 6.5 5.5* 5.6* ALB 3.4* 3.0* 3.5* ALT 18 11 12 AST 31 16 14 ALKPHOS 93 76 83 TBILI 0.8 0.6 0.7 MISC LABS: Component Latest Ref Rng AND Units 06/07/2018 06/08/2018 Lactic Acid 0.4 - 2.0 mEq/L 1.6 1.2 HCG Qualitative, Urine Negative ? Negative NT Pro BNP <125 pg/mL ? 763 (H) ? RADIOLOGY: 06/04/2018 CT A/P IMPRESSION: 1. ?Edema of the sigmoid colon which would be consistent with acute diverticulitis. ?No perforation or abscess formation. 2. ?Mildly increased fluid content of the small bowel, presumably reactive to the colonic process. 3. ?Multiple additional stable chronic findings as above ? 06/07/2018 CT A/P Liver: ? ? ?Stable 2 cm hypodense lesion in the right hepatic lobe on axial image 15. ?Stable 2.2 cm subcapsular hypodense lesion anterior-inferior right hepatic lobe on axial image 31. ? Biliary: No bile duct dilation. ?Cholecystectomy clips Spleen: No mass. No splenomegaly. Pancreas: No mass or duct dilation. Adrenals: Stable bilateral adrenal nodules Kidneys: No evidence hydronephrosis GI tract: Compared to 06/04/2018 CT, interval decrease in wall thickening of the sigmoid colon. ?Interval decrease in pericolonic inflammation at the distal descending/sigmoid junction consistent with a decrease in severity of acute diverticulitis. No focal drainable abscess. Moderate volume retained fecal material throughout the colon. ?Interval decrease in retained fluid throughout the small bowel which is no longer distended Status post appendectomy Lymph nodes: No abdominal or pelvic lymphadenopathy. Mesentery/Peritoneum: No ascites or mass. ?No evidence of pneumoperitoneum Retroperitoneum: No mass. Vasculature: ?The celiac axis and SMA are patent. The portal vein and branches, splenic vein, SMV, and hepatic veins are patent. ? ? Pelvis: No mass, ascites or fluid collection. ?No evidence of a gynecological mass Bones/Soft Tissues: Unremarkable Lower thorax: Unremarkable. IMPRESSION: 1.Compared to 06/04/2018 CT, interval decrease in severity of acute diverticulitis. ?There remains a mild degree of acute inflammation of the sigmoid colon, seen best axial image 90. 2. ?No evidence of an abscess or pneumoperitoneum ? 06/08/2018 Acute abdominal series IMPRESSION: Moderate volume of fecal material throughout the colon. ? MOST RECENT EGD: 02/01/2016 Justin Frederick MD d/t nausea and vomiting 1. Lower esophageal sphincter at 38 cm 2. Biopsies for histology taken 3. No other mucosal abnormalities Bx: Unavailable ? MOST RECENT COLONOSCOPY: 01/22/2016 with Justin Frederick MD for diarrhea 1. Colon polyps in cecum in the mid ascending 2. Normal mucosa throughout, biopsied 3. Multiple large diverticulum in the sigmoid and descending colon Bx: unavailable SIGNATURE: Prudence Edwards, WORM RAISER DATE: June 11, 2018 TIME: 10:11 AM Normal [facility] Comp Metabolic Panelon 06-11 Albumin mass conc 3.4 g/dL Low 3.9-4.9 [facility] Comment on above: Performed By: #### C BC, CMP, MG1 ####[facility] [address] [place] [address] ALP enzyme act/vol 93 U/L Normal 34-123 [facility] Comment on above: Performed By: #### C BC, CMP, MG1 ####[facility] [address] [place] [address] ALT enzyme act/vol 18 U/L Normal 7-38 [facility] Comment on above: Performed By: #### C BC, CMP, MG1 ####[facility] [address] [place] [address] Anion gap molar conc 11 mmol/L Normal 9-18 [facility] Comment on above: Performed By: #### C BC, CMP, MG1 ####[facility] [address] [place] [address] AST enzyme act/vol 31 U/L Normal 13-35 [facility] Comment on above: Performed By: #### C BC, CMP, MG1 ####[facility] [address] [place] [address] Bilirubin mass conc 0.8 mg/dL Normal 0.2-1.3 [facility] Comment on above: Performed By: #### C BC, CMP, MG1 ####[facility] [address] [place] [address] Calcium mass conc 9.0 mg/dL Normal 8.5-10.2 [facility] Comment on above: Performed By: #### C BC, CMP, MG1 ####[facility] [address] [place] [address] Chloride molar conc 101 mmol/L Normal 97-105 [facility] Comment on above: Performed By: #### C BC, CMP, MG1 ####[facility] [address] [place] [address] CO2 molar conc 25 mmol/L Normal 22-30 [facility] Comment on above: Performed By: #### C BC, CMP, MG1 ####[facility] [address] [place] [phone] Creatinine mass conc 0.61 mg/dL Normal 0.58-0.96 [facility] Comment on above: Performed By: #### C DELIA WILSON, MG1 ####[facility] [address] eGFR- Amer. >60 Normal [facility] Comment on above: Performed By: #### C DELIA WILSON, MG1 ####[facility] [address] [place] [id number] GFR/1.73 sq M predicted among non-blacks MDRD vol rate/area (S/P/Bld) mL/min/{1.73_m2} Normal [facility] Comment on above: Result Comment: eGFR (Estimated GFR) Units of measure: mL/min/1.73 meters squared eGFR is derived from the reexpressed MDRD Study equation using the following parameters: serum creatinine, age, gender and race. The creatinine assay has been calibrated to be traceable to IDMS. An eGFR <60 mL/min/1.73m2 for >3 months is consistent with chronic kidney disease. Refer to KDOQI guidelines for clinical interpretation. In patients with unstable renal function, e.g. those with acute kidney injury, the eGFR may not accurately reflect actual GFR. Performed By: #### C DELIA WILSON, MG1 ####[facility] [address] [place] [id number] Glucose mass conc 123 mg/dL High 74-99 [facility] Comment on above: Result Comment: The [place] Diabetes [employer] (ADA) provides guidance for cutoff values for fasting glucose and random glucose. The ADA defines fasting as no caloric intake for at least 8 hours. Fasting plasma glucose results between 100 to 125 mg/dL indicate increased risk for diabetes (prediabetes). Fasting plasma glucose results greater than or equal to 126 mg/dL meet the criteria for diagnosis of diabetes. In the absence of unequivocal hyperglycemia, results should be confirmed by repeat testing. In a patient with classic symptoms of hyperglycemia or hyperglycemic crisis, random plasma glucose results greater than or equal to 200 mg/dL meet the criteria for diagnosis of diabetes. Reference: Standards of Medical Care in Diabetes 2016, [place] [employer]. Diabetes Care. 2016.39(Suppl 1). Performed By: #### C BC, CMP, MG1 ####[facility] [address] [place] [address] Potassium molar conc 3.9 mmol/L Normal 3.7-5.1 [facility] Comment on above: Performed By: #### C BC, CMP, MG1 ####[facility] [address] [place] [address] Protein mass conc 6.5 g/dL Normal 6.3-8.0 [facility] Comment on above: Performed By: #### C BC, CMP, MG1 ####[facility] [address] [place] [address] Sodium molar conc 137 mmol/L Normal 136-144 [facility] Comment on above: Performed By: #### C BC, CMP, MG1 ####[facility] [address] [place] [address] Urea nitrogen mass conc 5 mg/dL Low 7-21 [facility] Comment on above: Performed By: #### C BC, CMP, MG1 ####[facility] [address] [place] [address] Magnesiumon 06-11-2018 Magnesium mass conc 1.8 mg/dL Normal 1.7-2.3 [facility] Comment on above: Performed By: #### C BC, CMP, MG1 ####[facility] [address] [place] [address] PROGRESSon 06-11-2018 Protein mass conc HNO ID: [id number] Author: Fredo Morrow Service: Hospital Medicine Author Type: Physician Type: Progress Notes Filed: 06/11/2018 1:58 PM Note Text: SERVICE DATE: 06/11/2018 SERVICE TIME: 1:58 PM HOSPITAL MEDICINE PROGRESS NOTE NIGHT AND WEEKEND COVERAGE: Nights: Please contact pager [phone]. HPI Patient is a 47 year old with a hx of uncontrolled DM2,HTN,HL,back pain, systolic CHF with EF 36 ,diverticulitis,smoker, depression/anxiety disorder. Admitted because of worsening LLQ abdominal pain radiating to the back and right side ,nausea , vomiting and diaphoresis. SUBJECTIVE Interval Events: Patient reported solid firm bowel movement which resulted in worsening of her abdominal pain. Overall, her pain is better today. Discussed with GI, who recommended one more day of laxatives and possible DC tomorrow. Patient diet will also be gradually advanced OBJECTIVE BP 130/80 Pulse 75 Temp (Src) 98.8 (Oral) Resp 18 Ht 5' 7 (1.70m) Wt 188 lb 9.6 oz (85.5kg) SpO2 98% LMP 10/27/2015 BMI 29.53 kg/(m2). Physical Exam Performed: GENERAL: GENERAL APPEARANCE NCCC: well appearing, alert and in moderate distress HEART: HEART CCF: regular rate and rhythm, no murmer, gallop or rub, normal, S1, S2, no lifts, heaves, or thrills, PMI not displaced LUNGS: LUNGS CCF: clear to percussion and auscultation and no rales ABDOMEN: ABDOMEN: LLQ tenderness on palpation EXTREMITY: EXTREMITY EXAM: Normal exam of the extremities. No clubbing, cyanosis, or edema. PULSES: 2+ radial, 2+ carotid Lines, Drains, and Airways Line Peripheral 06/11/18 0700 Assessment Short Right Forearm 22 Gauge less than 1 day Reviewed lines, drains, AND airways. Need to be continued PIV Medications: Reviewed Diagnostic tests reviewed: Most recent imaging Most recent labs ASSESSMENT AND PLAN Assessment AND Plan, all Hosp Problems Active Hospital Problems as of 06/11/2018 Noted - Resolved Hospital Acute diverticulitis 06/08/2018 - Present Current Assessment AND Plan Assessment: Improving PLAN: Continue IV ceftriaxone and flagyl with plan to switch to PO at time of discharge Advance diet as tolerated PRN IV reglan for N/V Gi following; appreciate recs Avoid opioids due to constipation exacerbating pain Smoker 12/02/2017 - Present Current Assessment AND Plan Assessment/PLAN: She declined the nicotine patch Essential hypertension 02/20/2017 - Present Current Assessment AND Plan Assessment: Controlled PLAN: Resume home meds with parameters Uncontrolled type 2 diabetes mellitus with hyperglycemia, with long-term current use of insulin ([facility]) 06/08/2018 - Present Current Assessment AND Plan Assessment: HBAIC 11.2 on 12/06/17 She takes 40 units of lantus bid and 2 units of novolog tid. Controlled with current IP regimen PLAN: Due to hyperglycemia will start long acting insulin But her PO intake is low due to N/V and hence will do 50% of her home dose Chronic systolic CHF (congestive heart failure) ([facility]) 06/08/2018 - Present Current Assessment AND Plan Assessment: She seems compensated at this time however it seems she received about 4 liters of IVF .at ER Echo 12/03/17 :EF = 36 PLAN: Resume home cardiac meds . Strict I and O Constipation 06/08/2018 - Present Current Assessment AND Plan Assessment: Hard stools last night PLAN: Avoid opioids due to constipation worsening pain. Repeat doses of Miralax and dulcolax suppository per GI recommendation GI consult Anxiety and depression 06/08/2018 - Present Current Assessment AND Plan OP treatment and f/u with PCP Medication and Non-Pharmacologic VTE Prophylaxis/Anticoagulant s Anticoagulant AND Antiplatelet Medications Start Dose Route Frequency Ordered Stop 06/08/18 1630 enoxaparin 40 mg injection (LOVENOX) (Medical At Risk ) 40 mg SUBCUTANEOUS DAILY 06/08/18 1605 -- 06/08/18 1630 aspirin, enteric coated 81 mg tab(s) 81 mg ORAL DAILY 06/08/18 1605 -- 06/08/18 1615 vte non-pharmacologic prophylaxis - none indicated ([place]) 06/08/18 1615 activity - mobilize patient ([place]) VTE Prophylaxis: VTE prophylaxis appropriate Plan of care discussed with: Patient SIGNATURE: Fredo Morrow MD PATIENT NAME: Trenton Jackson DATE: June 11, 2018 TIME: 1:58 PM PAGER/CONTACT #: [phone] Normal [facility] CBCon 06-10-2018 Erythrocyte distribution width Ratio (RBC) 13.1 % Normal 11.5-15.0 [facility] Comment on above: Performed By: #### C DELIA WILSON, MG1 ####[facility] [address] [place] [phone] Hematocrit Volume Fraction (Bld) 41.1 % Normal 36.0-46.0 [facility] Comment on above: Performed By: #### C DELIA WILSON, MG1 ####[facility] [address] [place] [phone] Hemoglobin mass conc (Bld) 13.4 g/dL Normal 11.5-15.5 [facility] Comment on above: Performed By: #### C DELIA WILSON, MG1 ####[facility] [address] [place] [phone] MCH Entitic mass (RBC) 26.9 pG Normal 26.0-34.0 [facility] Comment on above: Performed By: #### Gideon BC, CMP, MG1 ####[facility] [address] [place] [address] MCHC mass conc (RBC) 32.6 g/dL Normal 30.5-36.0 [facility] Comment on above: Performed By: #### Gideon BC, CMP, MG1 ####[facility] [address] [place] [address] MCV Entitic volume (RBC) 82.4 fL Normal 80.0-100.0 [facility] Comment on above: Performed By: #### Gideon BC, CMP, MG1 ####[facility] [address] [place] [address] Platelet mean volume Entitic volume (Bld) 10.0 fL Normal 9.0-12.7 [facility] Comment on above: Performed By: #### Gideon BC, CMP, MG1 ####[facility] [address] [place] [address] Platelets #/vol (Bld) 202 10*3/uL Normal 150-400 [facility] Comment on above: Performed By: #### Gideon BC, CMP, MG1 ####[facility] [address] [place] [address] RBC #/vol (Bld) 4.99 10*6/uL Normal 3.90-5.20 [facility] Comment on above: Performed By: #### Gideon BC, CMP, MG1 ####[facility] [address] [place] [address] WBC #/vol (Bld) 10.93 10*3/uL Normal 3.70-11.00 [facility] Comment on above: Performed By: #### Gideon BC, CMP, MG1 ####[facility] [address] [place] [address] CONSULT PROGon 06-10-2018 Protein mass conc HNO ID: [id number] Author: Jasvir Kumar Service: Gastroenterology Author Type: Physician Type: Consult Progress Note Filed: 06/10/2018 1:54 PM Note Text: GASTROENTEROLOGY CONSULT PROGRESS NOTE Patient Name: Trenton Jackson SERVICE DATE: June 10, 2018 SERVICE TIME: 12:53 PM IMPRESSION: 1- Acute uncomplicated sigmoid diverticulitis (recurrent, prior episodes 2016, 2017) 2- Chronic constipation, irregular bowel habits 3- GERD, prior pipe 4- Poorly controlled DM (HgbA1c consistently >10) ? PLAN: - Continue clear liquid diet - Start Miralax 17 gm po daily - Protonix 40 mg IV daily - Rocephin/Flagyl - ASA 81 mg daily - Follow labs - If has BM's today, would advance diet tomorrow and switch to PO abx in AM - Recommend outpatient, elective colonoscopy in ~6 weeks Patient seen and examined. Discussed with mid level provider. Jones findings confirmed. Plan as outlined. Will repeat Miralax 2 capfuls q2 hours x 3 doses today, as well as biscodyl 10 mg q2h x 2 doses. Will give Reglan 10 mg IV q8h x 2 doses. Rest as above. Jasvir Kumar MD June 10, 2018 1:53 PM INTERVAL HPI: No BM following six dose of Miralax yesterday and was therefore ordered one bottle of Magnesium Citrate and Dulcolax this am by IM. On arrival to examination patient tearful, reporting that she had a large emesis which contained the bottle of Mag Citrate. No hematemesis or coffee ground emesis. Now is having left sided abdominal pain similar to her pain on admission. PHYSICAL EXAM: Patient Vitals for the past 24 hrs: BP Temp Temp src Pulse Resp SpO2 Weight 06/10/18 1052 118/67 36.6 ?C (97.9 ?F) Oral 75 16 96 % - 06/10/18 0710 106/72 36.5 ?C (97.7 ?F) Oral 67 18 98 % - 06/10/18 0600 - - - - - - 84.7 kg (186 lb 12.8 oz) 06/10/18 0314 123/73 36.3 ?C (97.3 ?F) Axillary 81 18 100 % - 06/09/18 2340 92/54 36.8 ?C (98.2 ?F) Oral 73 16 97 % - 06/09/18 2033 117/77 36.6 ?C (97.9 ?F) Oral 83 16 95 % - 06/09/18 1608 113/66 36.6 ?C (97.9 ?F) Oral 85 18 99 % - GENERAL: Alert and oriented x 3. Appears comfortable. NAD. Tearful. HEENT: No pallor. No scleral icterus LUNGS: Clear to auscultation anteriorly CARDIAC: RRR ABDOMEN: Soft. Non distended. Left sided tenderness. Bowel sounds normal hypoactive. No guarding or rebound tenderness. EXTREMITIES: No edema to ODETTE lower extremities MEDICATIONS: Current hospital medications: bisacodyl 10 mg suppository (DULCOLAX) 10 mg RECTAL DAILY PRN morphine 4 mg injection 4 mg INTRAVENOUS q 4 H PRN insulin lispro injection (rapid acting) (HumaLOG) SUBCUTANEOUS w MEALS insulin lispro injection (rapid acting) (HumaLOG) SUBCUTANEOUS AT BEDTIME insulin glargine 20 Units injection (long acting) (LANTUS) 20 Units SUBCUTANEOUS AT BEDTIME metoprolol succinate ER 25 mg tab(s) (TOPROL XL) 25 mg ORAL AT BEDTIME atorvastatin 80 mg tab(s) (LIPITOR) 80 mg ORAL AT BEDTIME NaCl 0.9% 3-5 mL 3-5 mL INTRAVENOUS q 12 H enoxaparin 40 mg injection (LOVENOX) 40 mg SUBCUTANEOUS DAILY ondansetron (PF) 4 mg injection (ZOFRAN) 4 mg INTRAVENOUS q 6 H PRN cefTRIAXone 1 g in D5W 100 mL MB+ (ROCEPHIN) 1 g INTRAVENOUS q 24 H metroNIDAZOLE 500 mg PREMIX piggyback (FLAGYL) 500 mg INTRAVENOUS q 8 H dextrose 40 % 15 g 15 g ORAL PRN glucagon 1 mg injection (GLUCAGEN) 1 mg INTRAMUSCULAR PRN dextrose 50% in water 25 mL syringe 12.5 g INTRAVENOUS PRN lisinopril 10 mg tab(s) (ZESTRIL, PRINIVIL) 10 mg ORAL DAILY aspirin, enteric coated 81 mg tab(s) 81 mg ORAL DAILY pantoprazole 40 mg injection (PROTONIX) 40 mg INTRAVENOUS DAILY (6 AM) albuterol 2.5 mg /3 mL (0.083 %) 2.5 mg (PROVENTIL) 3 mL INHALATION q 6 H PRN LABS: CBC, Coags, BMP, Mg, Phos Recent Labs 06/10/18 0512 06/09/18 1101 06/09/18 0619 06/08/18 1646 06/08/18 1040 WBC 10.93 -- 8.16 -- 14.0* HB 13.4 -- 14.0 -- 16.0 HCT 41.1 -- 42.5 -- 46.5 PLT 202 -- 217 -- 197 NA 138 134* -- 135* 133* K 3.4* 3.6* -- 4.0 4.0 CHLOR 102 98 -- 100 97* CO2 28 22 -- 26 25 BUN 6* 5* -- 3* 4* CREAT 0.62 0.60 -- 0.56* 0.52 GLUC 142* 313* -- 219* 354* CA 8.8 8.6 -- 8.9 8.9 MG 1.8 -- 1.8 -- -- Liver Function, Amylase, AND Lipase Recent Labs 06/10/18 0512 06/09/18 1101 06/08/18 1646 TPROT 5.5* 5.6* 5.9* ALB 3.0* 3.5* 3.5* ALT 11 12 10 AST 16 14 14 ALKPHOS 76 83 95 TBILI 0.6 0.7 0.9 MISC LABS: Component Latest Ref Rng AND Units 06/07/2018 06/08/2018 Lactic Acid 0.4 - 2.0 mEq/L 1.6 1.2 HCG Qualitative, Urine Negative Negative NT Pro BNP <125 pg/mL 763 (H) RADIOLOGY: 06/04/2018 CT A/P IMPRESSION: 1. ?Edema of the sigmoid colon which would be consistent with acute diverticulitis. ?No perforation or abscess formation. 2. ?Mildly increased fluid content of the small bowel, presumably reactive to the colonic process. 3. ?Multiple additional stable chronic findings as above 06/07/2018 CT A/P Liver: ? ? ?Stable 2 cm hypodense lesion in the right hepatic lobe on axial image 15. ?Stable 2.2 cm subcapsular hypodense lesion anterior-inferior right hepatic lobe on axial image 31. ? Biliary: No bile duct dilation. ?Cholecystectomy clips Spleen: No mass. No splenomegaly. Pancreas: No mass or duct dilation. Adrenals: Stable bilateral adrenal nodules Kidneys: No evidence hydronephrosis GI tract: Compared to 06/04/2018 CT, interval decrease in wall thickening of the sigmoid colon. ?Interval decrease in pericolonic inflammation at the distal descending/sigmoid junction consistent with a decrease in severity of acute diverticulitis. No focal drainable abscess. Moderate volume retained fecal material throughout the colon. ?Interval decrease in retained fluid throughout the small bowel which is no longer distended Status post appendectomy Lymph nodes: No abdominal or pelvic lymphadenopathy. Mesentery/Peritoneum: No ascites or mass. ?No evidence of pneumoperitoneum Retroperitoneum: No mass. Vasculature: ?The celiac axis and SMA are patent. The portal vein and branches, splenic vein, SMV, and hepatic veins are patent. ? ? Pelvis: No mass, ascites or fluid collection. ?No evidence of a gynecological mass Bones/Soft Tissues: Unremarkable Lower thorax: Unremarkable. IMPRESSION: 1.Compared to 06/04/2018 CT, interval decrease in severity of acute diverticulitis. ?There remains a mild degree of acute inflammation of the sigmoid colon, seen best axial image 90. 2. ?No evidence of an abscess or pneumoperitoneum 06/08/2018 Acute abdominal series IMPRESSION: Moderate volume of fecal material throughout the colon. MOST RECENT EGD: 02/01/2016 Justin Frederick MD d/t nausea and vomiting 1. Lower esophageal sphincter at 38 cm 2. Biopsies for histology taken 3. No other mucosal abnormalities Bx: Unavailable MOST RECENT COLONOSCOPY: Has never undergone endoscopic evaluation SIGNATURE: Griselda Chaparro APRN.[place] DATE: June 10, 2018 TIME: 12:53 PM Normal [facility] Comp Metabolic Panelon 06-10 Albumin mass conc 3.0 g/dL Low 3.9-4.9 [facility] Comment on above: Performed By: #### C BC, CMP, MG1 ####[facility] [address] [place] [phone] ALP enzyme act/vol 76 U/L Normal 34-123 [facility] Comment on above: Performed By: #### C BC, CMP, MG1 ####[facility] [address] [place] [address] ALT enzyme act/vol 11 U/L Normal 7-38 [facility] Comment on above: Performed By: #### C BC, CMP, MG1 ####[facility] [address] [place] [address] Anion gap molar conc 8 mmol/L Low 9-18 [facility] Comment on above: Performed By: #### C BC, CMP, MG1 ####[facility] [address] [place] [address] AST enzyme act/vol 16 U/L Normal 13-35 [facility] Comment on above: Performed By: #### C BC, CMP, MG1 ####[facility] [address] [place] [address] Bilirubin mass conc 0.6 mg/dL Normal 0.2-1.3 [facility] Comment on above: Performed By: #### C BC, CMP, MG1 ####[facility] [address] [place] [address] Calcium mass conc 8.8 mg/dL Normal 8.5-10.2 [facility] Comment on above: Performed By: #### C BC, CMP, MG1 ####[place] [address] Chloride molar conc 102 mmol/L Normal 97-105 [facility] Comment on above: Performed By: #### C BC, CMP, MG1 ####[facility] [address] [place] [address] CO2 molar conc 28 mmol/L Normal 22-30 [facility] Comment on above: Performed By: #### C BC, CMP, MG1 ####[facility] [address] [place] [address] Creatinine mass conc 0.62 mg/dL Normal 0.58-0.96 [facility] Comment on above: Performed By: #### C BC, CMP, MG1 ####[facility] [address] [place] [address] eGFR- Amer. >60 Normal [facility] Comment on above: Performed By: #### C DELIA WILSON MG1 ####[facility] [address] GFR/1.73 sq M predicted among non-blacks MDRD vol rate/area (S/P/Bld) mL/min/{1.73_m2} Normal [facility] Comment on above: Result Comment: eGFR (Estimated GFR) Units of measure: mL/min/1.73 meters squared eGFR is derived from the reexpressed MDRD Study equation using the following parameters: serum creatinine, age, gender and race. The creatinine assay has been calibrated to be traceable to IDMS. An eGFR <60 mL/min/1.73m2 for >3 months is consistent with chronic kidney disease. Refer to KDOQI guidelines for clinical interpretation. In patients with unstable renal function, e.g. those with acute kidney injury, the eGFR may not accurately reflect actual GFR. Performed By: #### C DELIA WILSON, MG1 ####[facility] [address] [place] [id number] Glucose mass conc 142 mg/dL High 74-99 [facility] Comment on above: Result Comment: The [place] Diabetes [employer] (ADA) provides guidance for cutoff values for fasting glucose and random glucose. The ADA defines fasting as no caloric intake for at least 8 hours. Fasting plasma glucose results between 100 to 125 mg/dL indicate increased risk for diabetes (prediabetes). Fasting plasma glucose results greater than or equal to 126 mg/dL meet the criteria for diagnosis of diabetes. In the absence of unequivocal hyperglycemia, results should be confirmed by repeat testing. In a patient with classic symptoms of hyperglycemia or hyperglycemic crisis, random plasma glucose results greater than or equal to 200 mg/dL meet the criteria for diagnosis of diabetes. Reference: Standards of Medical Care in Diabetes 2016, [place] [employer]. Diabetes Care. 2016.39(Suppl 1). Performed By: #### C DELIA WILSON, MG1 ####[facility] [address] [place] [phone] Potassium molar conc 3.4 mmol/L Low 3.7-5.1 [facility] Comment on above: Performed By: #### C DELIA WILSON, MG1 ####[facility] [address] [place] [address] Protein mass conc 5.5 g/dL Low 6.3-8.0 [facility] Comment on above: Performed By: #### C BC, CMP, MG1 ####[facility] [address] Sodium molar conc 138 mmol/L Normal 136-144 [facility] Comment on above: Performed By: #### C BC, CMP, MG1 ####[facility] [address] Urea nitrogen mass conc 6 mg/dL Low 7-21 [facility] Comment on above: Performed By: #### C BC, CMP, MG1 ####[facility] [address] Magnesiumon 06-10-2018 Magnesium mass conc 1.8 mg/dL Normal 1.7-2.3 [facility] Comment on above: Performed By: #### C BC, CMP, MG1 ####[facility] [address] PROGRESSon 06-10-2018 Protein mass conc HNO ID: [id number] Author: Fredo Morrow Service: Hospital Medicine Author Type: Physician Type: Progress Notes Filed: 06/10/2018 4:22 PM Note Text: SERVICE DATE: 06/10/2018 SERVICE TIME: 4:22 PM HOSPITAL MEDICINE PROGRESS NOTE NIGHT AND WEEKEND COVERAGE: Nights: Please contact pager [phone]. HPI Patient is a 47 year old with a hx Of uncontrolled DM2,HTN,HL,back pain, systolic CHF with EF 36 ,diverticulitis,smoker, depression/anxiety disorder. ? Admitted because of worsening LLQ abdominal pain radiating to the back and right side ,nausea , vomiting and diaphoresis. Vomited all the way to the er today . No food /fluid intake since yesterday.Feels hungry now. ? She was first seen at ED on 06/04/18 because of abdominal pain due to diverticulitis . She received IV flagyl and rocephin and Was discharged on augmentin. She was seen again on 06/07 and today because of worsening abdominal pain,N/V despite taking oral narcotics and antibiotic. ? ? Hx of constipation with bm every 2 days. Last bm was yesterday, brown,firm- had to strain ? Colonoscopy >5 years years ago-ok as per patient ? She denies fever?,chills,urinary symptoms ,chest pain,SOB ? ?She is a smoker.Denies alcohol use SUBJECTIVE Interval Events: Patient was tearful this morning as her pain is still persistent, and worse as she is hungry. She is on clear liquid diet per GI recs and she is hoping to eat something solid. She has not had a BM even after doses of Miralax. OBJECTIVE BP 132/80 Pulse 78 Temp (Src) 98.8 (Oral) Resp 18 Ht 5' 7 (1.70m) Wt 186 lb 12.8 oz (84.7kg) SpO2 100% LMP 10/27/2015 BMI 29.25 kg/(m2). Physical Exam Performed: GENERAL: GENERAL APPEARANCE NCCC: well appearing, alert and in moderate distress HEART: HEART CCF: regular rate and rhythm, no murmer, gallop or rub, normal, S1, S2, no lifts, heaves, or thrills, PMI not displaced LUNGS: LUNGS CCF: clear to percussion and auscultation and no rales ABDOMEN: ABDOMEN: LLQ tenderness on palpation EXTREMITY: EXTREMITY EXAM: Normal exam of the extremities. No clubbing, cyanosis, or edema. PULSES: 2+ radial, 2+ carotid Lines, Drains, and Airways Line Peripheral 06/09/18 2205 Assessment Short Left Forearm 22 Gauge less than 1 day Reviewed lines, drains, AND airways. Need to be continued PIV Medications: Reviewed Diagnostic tests reviewed: Most recent imaging Most recent labs ASSESSMENT AND PLAN Assessment AND Plan, all Hosp Problems Active Hospital Problems as of 06/10/2018 Noted - Resolved Hospital Acute diverticulitis 06/08/2018 - Present Current Assessment AND Plan Assessment: Persisting and worsening symptoms despite Taking augmentin and narcotics. Leukocytosis resolved PLAN: Continue IV ceftriaxone and flagyl with plan to switch to PO tomorrow if bowel is moving Clear liquid diet, advance after BM PRN IV reglan for N/V Gi following; appreciate recs Avoid opioids due to constipation exacerbating pain Smoker 12/02/2017 - Present Current Assessment AND Plan Assessment/PLAN: She declined the nicotine patch Essential hypertension 02/20/2017 - Present Current Assessment AND Plan Assessment: Suboptimal control PLAN: Resume home meds with parameters Uncontrolled type 2 diabetes mellitus with hyperglycemia, with long-term current use of insulin (HCC) 06/08/2018 - Present Current Assessment AND Plan Assessment: HBAIC 11.2 on 12/06/17 She takes 40 units of lantus bid and 2 units of novolog tid. RBS on admission 354 s/p rx with 5 units of regular insulin PLAN: Due to hyperglycemia will start long acting insulin But her PO intake is low due to N/V and hence will do 50% of her home dose Chronic systolic CHF (congestive heart failure) ([facility]) 06/08/2018 - Present Current Assessment AND Plan Assessment: She seems compensated at this time however it seems she received about 4 liters of IVF .at ER Echo 12/03/17 :EF = 36 PLAN: Resume home cardiac meds . Strict I and O Constipation 06/08/2018 - Present Current Assessment AND Plan Assessment: Xray done today 06/08/17 :Moderate volume of fecal material throughout the colon. She Has a hx of chronic constipation with bm every 2 days . Have been taking colace without improvement PLAN: Avoid opioids due to constipation worsening pain. Repeat doses of Miralax and dulcolax suppository GI consult Anxiety and depression 06/08/2018 - Present Current Assessment AND Plan Assessment: She is not on any meds . She did receive IV ativan in the ER PLAN: Continue to monitor Will give ativan if needed for anxiety Medication and Non-Pharmacologic VTE Prophylaxis/Anticoagulant s Anticoagulant AND Antiplatelet Medications Start Dose Route Frequency Ordered Stop 06/08/18 1630 enoxaparin 40 mg injection (LOVENOX) (Medical At Risk ) 40 mg SUBCUTANEOUS DAILY 06/08/18 1605 -- 06/08/18 1630 aspirin, enteric coated 81 mg tab(s) 81 mg ORAL DAILY 06/08/18 1605 -- 06/08/18 1615 vte non-pharmacologic prophylaxis - none indicated (fl,oh) 06/08/18 1615 activity - mobilize patient (sc,sd) VTE Prophylaxis: VTE prophylaxis appropriate Plan of care discussed with: Patient SIGNATURE: Fredo Morrow MD PATIENT NAME: Trenton Jackson DATE: June 10, 2018 TIME: 4:22 PM PAGER/CONTACT #: [phone] [facility] [place] CASE MGT INIT [place] 2018 CASE MGT INIT [facility] HNO ID: [id number] Author: Donna AgudeloRn) CHAYITO Gupta Service: Case Management Author Type: Registered Nurse Type: Care Mgt Initial Assessment Filed: 06/09/2018 4:47 PM Note Text: CARE MANAGEMENT: ASSESSMENT AND DISCHARGE PLAN SERVICE DATE: 06/09/2018 SERVICE TIME: 4:45 PM PRIMARY CARE PHYSICIAN: Uziel Conteh MD - Confirmed with the patient ADMISSION STATUS: Observation Needs Prior to Discharge: To Be Determined 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 No Advance Directive: Current Advance Directive: None Combat Control Attempted to Assist with AD Completion: Yes Action: Education Provided;Patient Unwilling Health Literacy: 1. How often do you need to have someone help you when you read instructions, pamphlets, or other written material from your doctor or pharmacy? Never - 1 2. How confident are you filling out medical forms by yourself? Extremely - 1 If Patient scores > 3 on either question, the following interventions were put into place: Patient did not score > 3 FUNCTIONAL AND COGNITIVE/BEHAVIORAL PRIOR TO ADMISSION: Baseline Mental Status: Alert AND Oriented, Person, Place , Time and Situation Functional Status: Independent Does Patient Currently Receive Any Community Services or Home Care? None Equipment Prior to Admission: Glucometer Has the Patient Been in a Penitentiary Facility in the Past 30 days? No SOCIAL: Living Arrangement: Home Lives With: Spouse Financial Resources: N/A Primary Contact: Extended Emergency Contact Information Primary Emergency Contact: Curry Jackson Jr Address: [address] [place] [address] [facility] Mobile Relation: Spouse Secondary Emergency Contact: Rebecca Dueñas Address: [place] [address] [facility] Relation: Mother Supportive: Yes Other Important Patient Contacts: None Caregiver Assessment: Caregiver is ready, willing and able to meet the patient's needs as recommended by the inter-professional team? No Caregiver Needed Patient's transition needs and plan for meeting these needs: TBD Does the patient have an acute stroke diagnosis, or has the patient had a stroke during this admission? No Medication Adherence: I am convinced of the importance of my prescription medication: Agree completely - 0 I worry that my prescription medication will do more harm than good to me Disagree completely - 0 I feel financially burdened by my vyo-iq-vxoglv expenses for my prescription medication: Disagree completely - 0 Patient is categorized as low risk < 2 Are you interested in bedside delivery of your medications? No Food Concerns: In the Last Month, Have You had Trouble Getting Food? No trouble getting food During the Last Month, Have You Worried Whether Your Food Would Run Out Before You Had Enough Money to Buy More? No Is the Patient Psychosocially Complex? No ASSESSMENT AND PLAN: Medical Needs: None Psychosocial Needs: None FREEDOM OF CHOICE EXPLAINED: N/A POTENTIAL TRANSITION PLANS Home Review of the chart and met with the patient. The patient stated she is independent DIANETICIST. Lives with her . CM department will continue to follow for DC needs. SIGNATURE: Donna Gupta PATIENT NAME: Trenton Jackson DATE: June 09, 2018 TIME: 4:45 PM PAGER/CONTACT #: [phone] Normal [facility] CBCon 06-09-2018 Erythrocyte distribution width Ratio (RBC) 13.0 % Normal 11.5-15.0 [facility] Comment on above: Performed By: #### H STNT #### [facility] Laboratory [address] [place] [address] Hematocrit Volume Fraction (Bld) 42.5 % Normal 36.0-46.0 [facility] Comment on above: Performed By: #### H STNT #### [facility] Laboratory [address] [place] [address] Hemoglobin mass conc (Bld) 14.0 g/dL Normal 11.5-15.5 [facility] Comment on above: Performed By: #### H STNT #### [facility] [address] [place] [address] MCH Entitic mass (RBC) 27.0 pG Normal 26.0-34.0 [facility] Comment on above: Performed By: #### H STNT #### [facility] Laboratory [address] [place], [place] [id number] MCHC mass conc (RBC) 32.9 g/dL Normal 30.5-36.0 [facility] Comment on above: Performed By: #### H STNT #### [facility] [address] MCV Entitic volume (RBC) 82.0 fL Normal 80.0-100.0 [facility] Comment on above: Performed By: #### H STNT #### [facility] [address] [place] [phone] Platelet mean volume Entitic volume (Bld) 9.6 fL Normal 9.0-12.7 [facility] Comment on above: Performed By: #### H STNT #### [facility] [address] Platelets #/vol (Bld) 217 10*3/uL Normal 150-400 [facility] Comment on above: Performed By: #### H STNT #### [facility] [address] RBC #/vol (Bld) 5.18 10*6/uL Normal 3.90-5.20 [facility] Comment on above: Performed By: #### H STNT #### [facility] [address] [place] [phone] WBC #/vol (Bld) 8.16 10*3/uL Normal 3.70-11.00 [facility] Comment on above: Performed By: #### H STNT #### [facility] [address] [place] [phone] CONSULTon 06-09-2018 CONSULT HNO ID: [id number] Author: Jasvir Kumar Service: Gastroenterology Author Type: Physician Type: Consults Filed: 06/09/2018 8:33 AM Note Text: CONSULT NOTE SERVICE DATE: 06/09/2018 SERVICE TIME: 0800 Consults: Gastroenterology REASON FOR CONSULTATION: Diverticulitis PRIMARY CARE PHYSICIAN: Uziel Conteh MD IMPRESSION: 1- Acute uncomplicated sigmoid diverticulitis (recurrent, prior episodes 2015, 2017) 2- Chronic constipation, irregular bowel habits 3- GERD, prior pipe 4- Poorly controlled DM (HgbA1c consistently >10) PLAN: - Clear liquid diet - Miralax 2 capfuls x 3 doses today, Reglan 10 mg IV q8h x 3 doses - Protonix 40 mg IV daily - Rocephin/Flagyl - ASA 81 mg daily - Follow labs - If has BM's today, would advance diet tomorrow and switch to PO abx in AM - Recommend outpatient, elective colonoscopy in ~6 weeks Subjective HPI: 47yo female in her usual state of health until New Year's morning when awoke from sleep with severe left-sided abd pain. Went to ER and dx'd with sigmoid diverticulitis on CT. Other findings (i.e. liver cysts) stable dating back to exams in 2013.. Sent home on Augmentin. However, persistent pain and nausea with non-bloody emesis and eventually admitted for further mgmt overnight. Had repeat CT during 2nd ER visit day prior to admission which actually showed improvement in uncomplicated sigmoid diverticulitis. Abdominal XR overnight with constipation. Currently with less abdominal pain, but requiring narcotic pain relief. +nausea, no further emesis since admission. Chronic GERD, well-controlled on omeprazole daily. No dysphagia. Denies abdominal pain normally. States chronically irregular bowel habits with no BM for several days, followed by either hard pellet stools or diarrhea for several times in a day. No brbpr or melena. No weight loss. Normally good appetite. Last colonoscopy 01/2016 with 2 colon polyps (path not available), left-sided tics, ow normal, fair bowel prep. Last EGD 01/2016 normal. Prior records, including labs and imaging, reviewed in detail. No family history of GI cancers or disorders. FUNCTIONAL STATUS: Independent PAST MEDICAL HISTORY Diagnosis Date - Chest pain - Diabetes mellitus - Diverticula of intestine - Hyperlipemia - Hypertension - Incisional hernia - Psychiatric disorder PAST SURGICAL HISTORY Procedure Laterality Date - APPENDECTOMY 2007 - DELIVERY ONLY , low transverse - COLONOSCOPY 2001? - DANDC, DIAG AND/OR THERAPEUTIC 10/17/12 - EGD W/O OR W/BRUSH/WASH 02/01/2016 EGD - HEART CATHETERIZATION - LAPAROSCOPIC CHOLEYCYSTECTOMY 1998 Cholecystectomy, lap - LIGATE FALLOPIAN TUBE Tubal ligation - PAST SURGICAL HISTORY OF 2009 cysy removed from neck - REPAIR INCIS HERNIA W MESH 10/16/13 - REPAIR INCISIONAL HERNIA,REDUCIBLE 10/16/13 - SIGMOIDOSCOPY FLEX DIAG 02/01/2016 Sigmoidoscopy, flexible FAMILY HISTORY Problem Relation Age of Onset - Thyroid Mother Graves - Diabetes Mother - Hypertension Mother - Diabetes Maternal Grandmother - Diabetes Maternal Uncle - Diabetes Maternal Aunt Social History Substance Use Topics - Smoking status: Current Every Day Smoker Packs/day: 0.50 Years: 27.00 Types: Cigarettes - Smokeless tobacco: Never Used Comment: trying to quit - Alcohol use No Prescriptions Prior to Admission: docusate sodium (COLACE) 100 mg capsule Take 1 capsule by mouth twice daily for 14 days. Disp: 28 capsule Rfl: 0 06/07/2018 at Unknown time amoxicillin-clavulanic acid (AUGMENTIN) 875-125 mg per tablet Take 1 tablet by mouth every 8 hours for 10 days. Disp: 30 tablet Rfl: 0 06/07/2018 at 0900 VENTOLIN HFA 90 mcg/actuation inhaler Inhale 2 Puffs as instructed every 4 hours as needed for Wheezing/Shortness of Breath. Disp: 18 g Rfl: 0 Past Week at Unknown time insulin glargine (LANTUS SOLOSTAR, BASAGLAR KWIKPEN) 100 unit/mL (3 mL) inpn Inject 40 Units subcutaneously twice daily. Disp: 10 Pen Rfl: 3 Past Week at Unknown time atorvastatin (LIPITOR) 80 mg tablet Take 1 tablet by mouth daily at bedtime. Disp: 30 tablet Rfl: 3 06/07/2018 at 2100 lisinopril (ZESTRIL, PRINIVIL) 10 mg tablet Take 1 tablet by mouth once daily. Disp: 30 tablet Rfl: 2 06/07/2018 at 0900 metoprolol succinate ER (TOPROL XL) 25 mg 24 hr tablet Take 1 tablet by mouth daily at bedtime. Disp: 30 tablet Rfl: 2 06/07/2018 at 0900 aspirin, enteric coated (ASPIRIN, ENTERIC COATED) 81 mg EC tablet Take 1 tablet by mouth once daily. Disp: 30 tablet Rfl: 2 06/07/2018 at 0900 dicyclomine (BENTYL) 20 mg tablet Take 1 tablet by mouth every 6 hours. Disp: 120 tablet Rfl: 3 06/07/2018 at 2100 insulin aspart U-100 (NOVOLOG FLEXPEN U-100 INSULIN) 100 unit/mL inpn Inject 2 Units subcutaneously three times daily with meals. Per Sliding scale Disp: 1 Pen Rfl: 5 Past Week at Unknown time oxyCODONE-acetaminophen (PERCOCET) 5-325 mg tablet Take 1 tablet by mouth every 6 hours as needed for up to 3 days. Disp: 8 tablet Rfl: 0 ondansetron orally disintegrating (ZOFRAN ODT) 4 mg disintegrating tablet Take 1 tablet by mouth every 6 hours as needed. Disp: 10 tablet Rfl: 0 naproxen (NAPROSYN) 500 mg tablet Take 1 tablet by mouth twice daily with meals. TAKE WITH FOOD Disp: 14 tablet Rfl: 0 promethazine (PHENERGAN) 12.5 mg suppository 1 Suppository by RECTAL route every 4 hours as needed for Nausea/Vomiting. Disp: 8 Suppository Rfl: 0 blood sugar diagnostic (FREESTYLE TEST) test strip Use as directed. Disp: 1 Bottle Rfl: 2 Blood Pressure Monitor (BLOOD PRESSURE KIT) kit 1 Each once daily. Disp: 1 Kit Rfl: 0 insulin needles, DISPOSABLE, (UNIFINE PENTIPS) 31 gauge x 5/16 ndle Use with insulin injections Disp: 100 Each Rfl: 2 Taking omeprazole (PRILOSEC) 20 mg capsule Take 1 capsule by mouth once daily. Disp: 30 capsule Rfl: 2 Taking Current hospital medications: polyethylene glycol 3350 34 g packet (MIRALAX, GLYCOLAX) 34 g ORAL q 1 H metoclopramide HCl 10 mg injection (REGLAN) 10 mg INTRAVENOUS q 8 H metoprolol succinate ER 25 mg tab(s) (TOPROL XL) 25 mg ORAL AT BEDTIME atorvastatin 80 mg tab(s) (LIPITOR) 80 mg ORAL AT BEDTIME NaCl 0.9% 3-5 mL 3-5 mL INTRAVENOUS q 12 H enoxaparin 40 mg injection (LOVENOX) 40 mg SUBCUTANEOUS DAILY ondansetron (PF) 4 mg injection (ZOFRAN) 4 mg INTRAVENOUS q 6 H PRN morphine 2-4 mg injection 2-4 mg INTRAVENOUS q 4 H PRN cefTRIAXone 1 g in D5W 100 mL MB+ (ROCEPHIN) 1 g INTRAVENOUS q 24 H metroNIDAZOLE 500 mg PREMIX piggyback (FLAGYL) 500 mg INTRAVENOUS q 8 H dextrose 40 % 15 g 15 g ORAL PRN glucagon 1 mg injection (GLUCAGEN) 1 mg INTRAMUSCULAR PRN dextrose 50% in water 25 mL syringe 12.5 g INTRAVENOUS PRN insulin lispro injection (rapid acting) (HumaLOG) SUBCUTANEOUS w MEALS lisinopril 10 mg tab(s) (ZESTRIL, PRINIVIL) 10 mg ORAL DAILY aspirin, enteric coated 81 mg tab(s) 81 mg ORAL DAILY pantoprazole 40 mg injection (PROTONIX) 40 mg INTRAVENOUS DAILY (6 AM) albuterol 2.5 mg /3 mL (0.083 %) 2.5 mg (PROVENTIL) 3 mL INHALATION q 6 H PRN Allergies As of Date: 06/08/2018 Allergen Noted Reaction LATEX 01/18/2011 Itching Fully Assessed 06/08/2018 COMPLETE REVIEW OF SYSTEMS: Review of Systems Objective Physical Exam NAD No LAD RRR CTAB BS+, soft, ND. Moderate LLQ/LMQ TTP with mild voluntary guarding, no rebound tenderness. No HSM. No LE edema Patient Vitals for the past 24 hrs: BP Temp Temp src Pulse Resp SpO2 Height Weight 06/09/18 0819 135/78 36.3 ?C (97.3 ?F) Oral 84 18 98 % - - 06/09/18 0705 - - - - - - - 83.8 kg (184 lb 12.8 oz) 06/09/18 0412 103/60 36.6 ?C (97.9 ?F) Oral 80 18 100 % - - 06/09/18 0315 - - - - 16 - - - 06/08/18 2305 115/74 36.4 ?C (97.5 ?F) Oral 89 18 100 % - - 06/08/18 2145 - - - - 18 - - - 06/08/18 2039 124/78 36.7 ?C (98.1 ?F) Oral 93 16 95 % - - 06/08/18 1529 140/83 36.9 ?C (98.4 ?F) Oral 107 18 96 % 170.2 cm (5' 7) 83 kg (183 lb) Body mass index is 28.94 kg/m?. DATA: Diagnostic tests reviewed for today's visit: Most recent labs and imaging results. SIGNATURE: Jasvir Kumar MD PATIENT NAME: Trenton Jackson DATE: June 09, 2018 TIME: 8:21 AM PAGER: Normal [facility] Comp Metabolic Panelon 06-09 Albumin mass conc 3.5 g/dL Low 3.9-4.9 [facility] Comment on above: Performed By: #### C MP ####[facility] [address] [place] [address] ALP enzyme act/vol 83 U/L Normal 34-123 [facility] Comment on above: Performed By: #### C MP ####[facility] [address] [place] [address] ALT enzyme act/vol 12 U/L Normal 7-38 [facility] Comment on above: Performed By: #### C MP ####[place] [address] Anion gap molar conc 14 mmol/L Normal 9-18 [facility] Comment on above: Performed By: #### C MP ####[facility] [address] [place] [address] AST enzyme act/vol 14 U/L Normal 13-35 [facility] Comment on above: Performed By: #### C MP ####[facility] [address] [place] [address] Bilirubin mass conc 0.7 mg/dL Normal 0.2-1.3 [facility] Comment on above: Performed By: #### C MP ####[facility] [address] [place] [address] Calcium mass conc 8.6 mg/dL Normal 8.5-10.2 [facility] Comment on above: Performed By: #### C MP ####[facility] [address] [place] [address] Chloride molar conc 98 mmol/L Normal 97-105 [facility] Comment on above: Performed By: #### C MP ####[facility] [address] [place] [address] CO2 molar conc 22 mmol/L Normal 22-30 [facility] Comment on above: Performed By: #### C MP ####[facility] [address] [place], [place] [id number] Creatinine mass conc 0.60 mg/dL Normal 0.58-0.96 [facility] Comment on above: Performed By: #### C MP ####[facility] [address]oc[address] eGFR- Amer. >60 Normal [facility] Comment on above: Performed By: #### C MP ####[facility] [address]03 [address] GFR/1.73 sq M predicted among non-blacks MDRD vol rate/area (S/P/Bld) mL/min/{1.73_m2} Normal [facility] Comment on above: Result Comment: eGFR (Estimated GFR) Units of measure: mL/min/1.73 meters squared eGFR is derived from the reexpressed MDRD Study equation using the following parameters: serum creatinine, age, gender and race. The creatinine assay has been calibrated to be traceable to IDMS. An eGFR <60 mL/min/1.73m2 for >3 months is consistent with chronic kidney disease. Refer to KDOQI guidelines for clinical interpretation. In patients with unstable renal function, e.g. those with acute kidney injury, the eGFR may not accurately reflect actual GFR. Performed By: #### C MP ####[facility] [address] [place] [address] Glucose mass conc 313 mg/dL High 74-99 [facility] Comment on above: Result Comment: The [place] [employer] (ADA) provides guidance for cutoff values for fasting glucose and random glucose. The ADA defines fasting as no caloric intake for at least 8 hours. Fasting plasma glucose results between 100 to 125 mg/dL indicate increased risk for diabetes (prediabetes). Fasting plasma glucose results greater than or equal to 126 mg/dL meet the criteria for diagnosis of diabetes. In the absence of unequivocal hyperglycemia, results should be confirmed by repeat testing. In a patient with classic symptoms of hyperglycemia or hyperglycemic crisis, random plasma glucose results greater than or equal to 200 mg/dL meet the criteria for diagnosis of diabetes. Reference: Standards of Medical Care in Diabetes 2016, [place] [employer]. Diabetes Care. 2016.39(Suppl 1). Performed By: #### C MP ####[facility] [address]ig[address] Potassium molar conc 3.6 mmol/L Low 3.7-5.1 [facility] Comment on above: Performed By: #### C MP ####[facility] [address] [place] [phone] Protein mass conc 5.6 g/dL Low 6.3-8.0 [facility] Comment on above: Performed By: #### C MP ####[facility] [address] [phone] Sodium molar conc 134 mmol/L Low 136-144 [facility] Comment on above: Performed By: #### C MP ####[facility] [address] [place] [phone] Urea nitrogen mass conc 5 mg/dL Low 7-21 M [facility] Comment on above: Performed By: #### C MP ####[facility] [address] [place] [phone] Magnesiumon 06-09-2018 Magnesium mass conc 1.8 mg/dL Normal 1.7-2.3 [facility] Comment on above: Performed By: #### H STNT #### [facility] Laboratory [address] [facility] [phone] PROGRESSon 06-09-2018 Protein mass conc HNO ID: [id number] Author: Lisa Bocanegra Service: Hospital Medicine Author Type: Physician Type: Progress Notes Filed: 06/09/2018 8:35 PM Note Text: INPATIENT PROGRESS NOTE SERVICE DATE: 06/09/2018 SERVICE TIME: 2.00PM Subjective CHIEF COMPLAINT: Feels hungry Still having abdominal pain and nausea controlled with morphine and zofran. Was sweating all night. No bm yet. No fever,chills,chest pain,SOB,nor vomiting Current hospital medications: metoclopramide HCl 10 mg injection (REGLAN) 10 mg INTRAVENOUS q 8 H morphine 4 mg injection 4 mg INTRAVENOUS q 4 H PRN insulin lispro injection (rapid acting) (HumaLOG) SUBCUTANEOUS w MEALS insulin lispro injection (rapid acting) (HumaLOG) SUBCUTANEOUS AT BEDTIME insulin glargine 20 Units injection (long acting) (LANTUS) 20 Units SUBCUTANEOUS AT BEDTIME metoprolol succinate ER 25 mg tab(s) (TOPROL XL) 25 mg ORAL AT BEDTIME atorvastatin 80 mg tab(s) (LIPITOR) 80 mg ORAL AT BEDTIME NaCl 0.9% 3-5 mL 3-5 mL INTRAVENOUS q 12 H enoxaparin 40 mg injection (LOVENOX) 40 mg SUBCUTANEOUS DAILY ondansetron (PF) 4 mg injection (ZOFRAN) 4 mg INTRAVENOUS q 6 H PRN cefTRIAXone 1 g in D5W 100 mL MB+ (ROCEPHIN) 1 g INTRAVENOUS q 24 H metroNIDAZOLE 500 mg PREMIX piggyback (FLAGYL) 500 mg INTRAVENOUS q 8 H dextrose 40 % 15 g 15 g ORAL PRN glucagon 1 mg injection (GLUCAGEN) 1 mg INTRAMUSCULAR PRN dextrose 50% in water 25 mL syringe 12.5 g INTRAVENOUS PRN lisinopril 10 mg tab(s) (ZESTRIL, PRINIVIL) 10 mg ORAL DAILY aspirin, enteric coated 81 mg tab(s) 81 mg ORAL DAILY pantoprazole 40 mg injection (PROTONIX) 40 mg INTRAVENOUS DAILY (6 AM) albuterol 2.5 mg /3 mL (0.083 %) 2.5 mg (PROVENTIL) 3 mL INHALATION q 6 H PRN Objective PHYSICAL EXAM: BP 113/66 Pulse 85 Temp (Src) 97.9 (Oral) Resp 18 Ht 5' 7 (1.70m) Wt 184 lb 12.8 oz (83.8kg) SpO2 99% LMP 10/27/2015 BMI 28.94 kg/(m2). Physical Exam Performed GENERAL: Alert, no distress, cooperative,hungry LUNGS: Lungs clear to auscultation, No wheezes nor rhonchi CARDIAC: Normal S1 and S2; no rubs, murmurs, or gallops ABDOMEN: Abdomen soft, lower abdominal tenderness worse on LLQ,No rebound,some guarding ,bowel sounds present EXTREMITIES: No edema NEURO:Awake,alert,oriente d,Can move all extremity DATA: Diagnostic tests reviewed for today's visit: Most recent labs and imaging results. Assessment/Plan Active Problems: Acute diverticulitis POA: Yes Assessment AND Plan: Failed oral outpatient rx with augmentin. Slight Improvement in symptoms since admission ,leucocytosis of [address] A/P :improving diverticulitis Symptoms out of proportion to the radiological and lab finding. Could be the constipation/anxiety is worsening her symptoms GI on consult. PLAN: Continue IV ceftriaxone and flagyl . IVF d/c and clear liquid diet Started as per GI recc Continue IV zofran PRN for N/V and IV morphine PRN For pain Bowel regimen as per GI recc Will avoid NSAID due to hx of systolic CHF Monitor electrolytes and replace accordingly As per GI recc,outpatient colonoscopy in about 6 weeks Appreciate GI consult Essential hypertension POA: Yes Assessment AND Plan: Controlled. Continue current mgt Uncontrolled type 2 diabetes mellitus with hyperglycemia, with long-term current use of insulin (HCC) POA: Unknown Assessment AND Plan: HBAIC 11.2 on 12/06/17 She takes 40units of lantus bid and 2 units of novolog tid. Since admission, she has uncontrolled glycemic readings :190-300 She was NPO on admission, Started clear liquid diet today. PLAN: Start lantus 20units daily. Start SSI #2 Accuchecks Follow up on HBAIC results Chronic systolic CHF (congestive heart failure) (HCC) POA: Unknown Assessment AND Plan: She seems compensated at this time however it seems she received about 4 liters of IVF .at ER Echo 12/03/17 :EF = 36 PLAN: Continue home cardiac meds . IVF d/c as patient is on liquid diet As per GI recc Strict I and O Constipation POA: Unknown Assessment AND Plan: She reports hx of chronic constipation alternating with diarrhea Xray 06/08/17 :Moderate volume of fecal material throughout the colon. Suspect current constipation triggered by the narcotics she was taking for pain for diverticulitis . PLAN Continue miralax regimen as per GI recc Anxiety and depression POA: Unknown Assessment AND Plan: She is not on any meds . She did receive IV ativan in the ER PLAN: Continue to monitor Will give ativan if needed for anxiety ? ? Dr Morrow ?will assume care tomorrow 06/10/18 Medication and Non-Pharmacologic VTE Prophylaxis/Anticoagulant s Anticoagulant AND Antiplatelet Medications Start Dose Route Frequency Ordered Stop 06/08/18 1630 enoxaparin 40 mg injection (LOVENOX) (Medical At Risk ) 40 mg SUBCUTANEOUS DAILY 06/08/18 1605 -- 06/08/18 1630 aspirin, enteric coated 81 mg tab(s) 81 mg ORAL DAILY 06/08/18 1605 -- 06/08/18 1615 vte non-pharmacologic prophylaxis - none indicated (sc,sd) 06/08/18 1615 activity - mobilize patient (sc,sd) VTE Prophylaxis: VTE prophylaxis appropriate SIGNATURE: Lisa Bocanegra MD PATIENT NAME: Trenton Jackson DATE: June 09, 2018 TIME: 4:55 PM PAGER: [phone] Normal [facility] ABD COMPL WITH UPRIGHT PA CH ESTon 06-08-2018 ABD COMPL WITH UPRIGHT PA CHEST Performed at [facility] APPROVED BY: Jose Elias Cabrera MD EXAM TITLE: ABD COMPL WITH UPRIGHT PA CHEST DATE: 06/08/2018 10:51 INDICATION: Left lower quadrant abdominal pain with nausea and emesis COMPARISON: Chest x-ray from 03/27/2018. Abdomen from 01/23/2017 FINDINGS: PA chest: The lungs are clear. There is no pleural effusion and the heart is not enlarged. ABDOMEN: Moderate volume of fecal material is noted throughout the colon. There is no evidence for bowel obstruction. Surgical clips are noted. There are no masses. Multiple pelvic calcifications are probably phleboliths. IMPRESSION: Moderate volume of fecal material throughout the colon. Normal [facility] Comp Metabolic Panelon 06-08 Albumin mass conc 3.5 g/dL Low 3.9-4.9 [facility] Comment on above: Performed By: #### H STNT #### [facility] Laboratory [address] [place] [address] ALP enzyme act/vol 95 U/L Normal 34-123 [facility] Comment on above: Performed By: #### H STNT #### [facility] Laboratory [address] [place] [address] ALT enzyme act/vol 10 U/L Normal 7-38 [facility] Comment on above: Performed By: #### H STNT #### [facility] Laboratory [address] [place] [place] [address] Anion gap molar conc 9 mmol/L Normal 9-18 [facility] Comment on above: Performed By: #### H STNT #### [facility] Laboratory [address] [place] [address] AST enzyme act/vol 14 U/L Normal 13-35 [facility] Comment on above: Performed By: #### H STNT #### [facility] Laboratory [address] [place] [address] Bilirubin mass conc 0.9 mg/dL Normal 0.2-1.3 [facility] Comment on above: Performed By: #### H STNT #### [facility] Laboratory [address] [place] [address] Calcium mass conc 8.9 mg/dL Normal 8.5-10.2 [facility] Comment on above: Performed By: #### H STNT #### [facility] Laboratory [address] [place] [address] Chloride molar conc 100 mmol/L Normal 97-105 [facility] Comment on above: Performed By: #### H STNT #### [facility] Laboratory [address] [address] CO2 molar conc 26 mmol/L Normal 22-30 [facility] Comment on above: Performed By: #### H STNT #### [facility] Laboratory [address] [place] [address] Creatinine mass conc 0.56 mg/dL Low 0.58-0.96 [facility] Comment on above: Performed By: #### H STNT #### [facility] Laboratory [address] [place] [address] eGFR- Amer. >60 Normal [facility] Comment on above: Performed By: #### H STNT #### [facility] Laboratory [address] [place] [address] GFR/1.73 sq M predicted among non-blacks MDRD vol rate/area (S/P/Bld) mL/min/{1.73_m2} Normal [facility] Comment on above: Result Comment: eGFR (Estimated GFR) Units of measure: mL/min/1.73 meters squared eGFR is derived from the reexpressed MDRD Study equation using the following parameters: serum creatinine, age, gender and race. The creatinine assay has been calibrated to be traceable to IDMS. An eGFR <60 mL/min/1.73m2 for >3 months is consistent with chronic kidney disease. Refer to KDOQI guidelines for clinical interpretation. In patients with unstable renal function, e.g. those with acute kidney injury, the eGFR may not accurately reflect actual GFR. Performed By: #### H STNT #### [facility] Laboratory [address] Glucose mass conc 219 mg/dL High 74-99 [facility] Comment on above: Result Comment: The [place] [employer] (ADA) provides guidance for cutoff values for fasting glucose and random glucose. The ADA defines fasting as no caloric intake for at least 8 hours. Fasting plasma glucose results between 100 to 125 mg/dL indicate increased risk for diabetes (prediabetes). Fasting plasma glucose results greater than or equal to 126 mg/dL meet the criteria for diagnosis of diabetes. In the absence of unequivocal hyperglycemia, results should be confirmed by repeat testing. In a patient with classic symptoms of hyperglycemia or hyperglycemic crisis, random plasma glucose results greater than or equal to 200 mg/dL meet the criteria for diagnosis of diabetes. Reference: Standards of Medical Care in Diabetes 2016, [place] [employer]. Diabetes Care. 2016.39(Suppl 1). Performed By: #### H STNT #### [facility] Laboratory [address] [place] [address] Potassium molar conc 4.0 mmol/L Normal 3.7-5.1 [facility] Comment on above: Performed By: #### H STNT #### [facility] Laboratory [address] [place] [address] Protein mass conc 5.9 g/dL Low 6.3-8.0 [facility] Comment on above: Performed By: #### H STNT #### [facility] Laboratory [address] [place] [address] Sodium molar conc 135 mmol/L Low 136-144 [facility] Comment on above: Performed By: #### H STNT #### [facility] Laboratory [address] [place] [address] Urea nitrogen mass conc 3 mg/dL Low 7-21 M [facility] Comment on above: Performed By: #### H STNT #### [facility] Laboratory [address] [place] [address] Comprehensive Panelon 2018 ALT-SGPT Blood 20 U/L Normal 14-63 [facility] Comment on above: Performed By: #### L MACU #### [address] [address] Albumin [Mass/Vol] 3.3 g/dL Low 3.4-5.0 [facility] Comment on above: Performed By: #### L MACU #### [address] [address] ALP [Catalytic activity/Vol] 111 U/L Normal 46-116 [facility] Comment on above: Performed By: #### L MACU #### [facility] [address] [address] Anion gap [Moles/Vol] 15 mmol/L Normal 8-20 [facility] Comment on above: Performed By: #### L MACU #### [facility] [address] [place] [address] AST-SGOT Blood 20 U/L Normal 15-37 [facility] Comment on above: Performed By: #### L MACU #### [facility] [address] [place] [address] Bilirubin Ql (U) 1.1 mg/dL High 0.2-1.0 [facility] Comment on above: Performed By: #### L MACU #### [place] [address] Calcium [Mass/Vol] 8.9 mg/dL Normal 8.5-10.1 [facility] Comment on above: Performed By: #### L MACU #### [facility] [address] [place] [address] Chloride [Moles/Vol] 97 mmol/L Low 98-107 [facility] Comment on above: Performed By: #### L MACU #### [place] [address] CO2 Blood 25 mEq/L Normal 21-32 [facility] Comment on above: Performed By: #### L MACU #### [facility] [address] [place] [address] Creatinine [Mass/Vol] 0.52 mg/dL Normal 0.51-0.95 [facility] Comment on above: Performed By: #### L MACU #### [facility] [address] [place] [address] Glucose [Mass/Vol] 354 mg/dL High 70-99 [facility] Comment on above: Performed By: #### L MACU #### [place] [address] Potassium [Moles/Vol] 4.0 mmol/L Normal 3.5-5.1 [facility] Comment on above: Performed By: #### L MACU #### [facility] [address] [place], [place] [address] Protein [Mass/Vol] 7.0 g/dL Normal 6.4-8.2 [facility] Comment on above: Performed By: #### L MACU #### [facility] [address] [place], [place] [address] Sodium [Moles/Vol] 133 mmol/L Low 136-145 [facility] Comment on above: Performed By: #### L MACU #### [facility] [address] [place], [place] [address] Urea nitrogen [Mass/Vol] 4 mg/dL Low 7-25 [facility] Comment on above: Performed By: #### L MACU #### [facility] [address] [place], [place] [address] Urea nitrogen/Creatinine [Mass ratio] 8 mg/mg Low 10-20 [facility] Comment on above: Performed By: #### L MACU #### [facility] [address] [place], [place] [address] Glucose Meteron 06-08-2018 Glucose [Mass/Vol] 224 mg/dL High 70-99 [facility] Comment on above: Result Comment: CHAYITO Mccracken OTIFIED [place] [address] Performed By: #### L ACET #### [address] [address] HISTORY PHYSICALon 9 HISTORY PHYSICAL HNO ID: [id number] Author: Lisa Bocanegra Service: Hospital Medicine Author Type: Physician Type: HANDP Filed: 06/08/2018 8:28 PM Note Text: SERVICE DATE: 06/08/2018 SERVICE TIME: 8:28 PM HOSPITAL MEDICINE HISTORY AND PHYSICAL PCP: Uziel Conteh MD NIGHT AND WEEKEND COVERAGE: Nights: Please contact pager [phone]. SUBJECTIVE Chief Complaint: abd pain- 4 days . Nausea and vomiting yesterday. Patient is a 47 year old with a hx Of uncontrolled DM2,HTN,HL,back pain, systolic CHF with EF 36 ,diverticulitis,smoker, depression/anxiety disorder. Admitted because of worsening LLQ abdominal pain radiating to the back and right side ,nausea , vomiting and diaphoresis. Vomited all the way to the er today . No food /fluid intake since yesterday.Feels hungry now. She was first seen at ED on 06/04/18 because of abdominal pain due to diverticulitis . She received IV flagyl and rocephin and Was discharged on augmentin. She was seen again on 06/07 and today because of worsening abdominal pain,N/V despite taking oral narcotics and antibiotic. Hx of constipation with bm every 2 days. Last bm was yesterday, brown,firm- had to strain Colonoscopy >5 years years ago-ok as per patient She denies fever?,chills,urinary symptoms ,chest pain,SOB ?She is a smoker.Denies alcohol use PAST MEDICAL HISTORY Diagnosis Date - Chest pain - Diabetes mellitus - Diverticula of intestine - Hyperlipemia - Hypertension - Incisional hernia - Psychiatric disorder PAST SURGICAL HISTORY Procedure Laterality Date - APPENDECTOMY 2007 - DELIVERY ONLY , low transverse - COLONOSCOPY 2001? - DANDC, DIAG AND/OR THERAPEUTIC 10/17/12 - EGD W/O OR W/BRUSH/WASH 02/01/2016 EGD - HEART CATHETERIZATION - LAPAROSCOPIC CHOLEYCYSTECTOMY 1998 Cholecystectomy, lap - LIGATE FALLOPIAN TUBE Tubal ligation - PAST SURGICAL HISTORY OF 2009 cysy removed from neck - REPAIR INCIS HERNIA W MESH 10/16/13 - REPAIR INCISIONAL HERNIA,REDUCIBLE 10/16/13 - SIGMOIDOSCOPY FLEX DIAG 02/01/2016 Sigmoidoscopy, flexible FAMILY HISTORY Problem Relation Age of Onset - Thyroid Mother Graves - Diabetes Mother - Hypertension Mother - Diabetes Maternal Grandmother - Diabetes Maternal Uncle - Diabetes Maternal Aunt Social History Substance Use Topics - Smoking status: Current Every Day Smoker Packs/day: 0.50 Years: 27.00 Types: Cigarettes - Smokeless tobacco: Never Used Comment: trying to quit - Alcohol use No Medications: Reviewed Allergies: ALLERGIES Allergen Reactions - Latex Itching Red and dry cracking skin Review of Systems: See HPI OBJECTIVE: PHYSICAL EXAM BP 140/83 Pulse 107 Temp (Src) 98.4 (Oral) Resp 18 Ht 5' 7 (1.70m) SpO2 96% LMP 10/27/2015 Physical Exam Performed: GENERAL: Alert, in painful distress,tearful, cooperative, Morbidly Obese LUNGS: Lungs clear to auscultation, No wheezing nor rhinchi CARDIAC: Normal S1 and S2; no rubs, murmurs, or gallops ABDOMEN: Abdomen soft,Lower quadrant tenderness most pronounced at LLQ Without rebound, BS present /hypoactive. EXTREMITIES: No edema NEURO: Awake,alert,oriented x3.Can move all extremity Lines, Drains, and Airways Line Peripheral 06/08/18 1035 Short Left Antecubital 22 Gauge less than 1 day Reviewed lines.Ok to continue Diagnostic tests reviewed: Most recent labs and imaging results CARE COORDINATION: No Patient Care Coordination Note on file. Assessment AND Plan, Most Recent Note from ALL Problems our Service Addressed Cardiovascular Chronic systolic CHF (congestive heart failure) (HCC) Assessment: She seems compensated at this time however it seems she received about 4 liters of IVF .at ER Echo 12/03/17 :EF = 36 PLAN: Resume home cardiac meds . Gentle hydration Strict I and O Essential hypertension Assessment: Suboptimal control PLAN: Resume home meds with parameters Pulmonary Smoker Assessment/PLAN: She declined the nicotine patch Gastrointestinal Constipation Assessment: Xray done today 06/08/17 :Moderate volume of fecal material throughout the colon. She Has a hx of chronic constipation with bm every 2 days . Have been taking colace without improvement PLAN: Since she is in severe pain, will defer any use of laxatives at this time . GI consult Acute diverticulitis Assessment: Persisting and worsening symptoms despite Taking augmentin and narcotics. Her leucocytosis improved from 17.3 on 06/04 to 12.2 when she started antibiotics but worse today 06/08 @14. Apart from mild tachycardia and slightly elevated BP, she is HDS. CT 06/07/17 : interval decrease in severity of acute diverticulitis with a mild degree of acute inflammation of the sigmoid remaining. Xray abdomen 06/08/17 shows moderate volume of fecal material throughout the colon Despite improved findings noted on CT,Patient continues to report severe lower abdominal pain,nausea,vomiting. she feels hungry Though Unclear if patient's pain is purely from diverticulitis or a combination of diverticulitis,constipati on and exacerbation of her lower back pain . PLAN: Start IV ceftriaxone and flagyl . NPO tonight with a plan to change to clear liquid and gradually advance diet in the am if symptoms improve. IVF-Gentle hydration due to hx of systolic CHF PRN IV zofran for N/V PRN IV morphine for pain Hold off on rxing constipation for now. Monitor electrolytes and replace accordingly GI consult Endocrinology Uncontrolled type 2 diabetes mellitus with hyperglycemia, with long-term current use of insulin (HCC) Assessment: HBAIC 11.2 on 12/06/17 She takes 40units of lantus bid and 2 units of novolog tid. RBS on admission 354 s/p rx with 5 units of regular insulin PLAN: Since she is NPO,start SSI.Ajust insulin dose as needed Accuchecks every 6hrs. Check HBAIC Other Anxiety and depression Assessment: She is not on any meds . She did receive IV ativan in the ER PLAN: Continue to monitor Will give ativan if needed for anxiety Medication and Non-Pharmacologic VTE Prophylaxis/Anticoagulant s Anticoagulant AND Antiplatelet Medications Start Dose Route Frequency Ordered Stop 06/08/18 1630 enoxaparin 40 mg injection (LOVENOX) (Medical At Risk ) 40 mg SUBCUTANEOUS DAILY 06/08/18 1605 -- 06/08/18 1630 aspirin, enteric coated 81 mg tab(s) 81 mg ORAL DAILY 06/08/18 1605 -- 06/08/18 1615 vte non-pharmacologic prophylaxis - none indicated (sc,sd) 06/08/18 1615 activity - mobilize patient ([place]) VTE Prophylaxis: VTE prophylaxis appropriate SIGNATURE: Lisa Bocanegra MD PATIENT NAME: Trenton Jackson DATE: June 08, 2018 TIME: 8:28 PM PAGER/CONTACT #: [phone] [facility] Hemoglobin A1con 06-08-2018 Hemoglobin A1c/Hemoglobin.total mass fraction (Bld) Unable to assay. No specimen received. [facility] Comment on above: Performed By: #### H STNT #### [facility] [address] [facility] [phone] Hemogram/Diffon 06-08-2018 Erythrocyte distribution width (RBC) [Ratio] 12.8 % Normal 11.5-15.9 [facility] Comment on above: Performed By: #### L MACU #### [address] [address] Hemoglobin (Bld) [Mass/Vol] 16.0 g/dL Normal 12.0-16.0 [facility] Comment on above: Performed By: #### L MACU #### [place] [address] MCHC (RBC) [Mass/Vol] 34.4 % Normal 32.0-36.0 [facility] Comment on above: Performed By: #### L MACU #### [place] [address] MCV (RBC) [Entitic vol] 80.3 fL Low 81.0-99.0 [facility] Comment on above: Performed By: #### L MACU #### [place] [address] WBC (Bld) [#/Vol] 14.0 thou/cmm High 4.8-10.8 [facility] Comment on above: Performed By: #### L MACU #### [place] [address] Hemogram/Manual Diffon 06-08 Abs. Baso 0.00 thou/cmm Normal 0.00-0.08 [facility] Comment on above: Performed By: #### L MACU #### [place] [address] Abs. Eosin 0.00 thou/cmm Normal 0.00-0.41 [facility] Comment on above: Performed By: #### L MACU #### [place] [address] Abs. Lymph 2.24 thou/cmm Normal 1.50-3.65 [facility] Comment on above: Performed By: #### L MACU #### [place] [address] Abs. [place]rie 0.28 thou/cmm Normal 0.20-1.00 [facility] Comment on above: Performed By: #### L MACU #### [place] [address] Abs. Neut (ANC) 11.48 thou/cmm High 3.00-5.67 [facility] Comment on above: Performed By: #### L MACU #### [facility] [address] [place] [address] Basophil 0.0 % Normal [facility] Comment on above: Performed By: #### L MACU #### [facility] [address] [place] [address] Eosinophil 0.0 % Normal [facility] Comment on above: Performed By: #### L MACU #### [facility] [address] [place] [address] Lymphocyte 16.0 % Normal [facility] Comment on above: Performed By: #### L MACU #### [facility] [address] [place] [address] Monocyte 2.0 % Normal [facility] Comment on above: Performed By: #### L MACU #### [place] [address] Platelets (Bld) [#/Vol] Normal Normal [facility] Comment on above: Performed By: #### L MACU #### [place] [address] RBC morphology finding Nom (Bld) Normal Normal [facility] Comment on above: Performed By: #### L MACU #### [place] [address] Seg Neutrophil 82.0 % Normal [facility] Comment on above: Performed By: #### L MACU #### [facility] [address] [place] [address] Toxic Granulation Few Normal [facility] Comment on above: Performed By: #### L MACU #### [place] [address] WBC Morphology see below Normal [facility] Comment on above: Result Comment: Toxi c vacuoles present Performed By: #### L MACU #### [place] [address] Diff Type Manual Diff Normal [facility] Comment on above: Performed By: #### L MACU #### [facility] [address] [place] [address] Hematocrit (Bld) [Volume fraction] 46.5 % Normal 37.0-47.0 [facility] Comment on above: Performed By: #### L MACU #### [facility] [address] [place] [address] MCH (RBC) [Entitic mass] 27.6 pg Normal 27.0-31.0 [facility] Comment on above: Performed By: #### L MACU #### [place] [address] Platelet mean volume (Bld) [Entitic vol] 9.5 fl Normal 7.1-10.5 [facility] Comment on above: Performed By: #### L MACU #### [place] [address] Platelets (Bld) [#/Vol] 197 thou/cmm Normal 150-400 [facility] Comment on above: Performed By: #### L MACU #### [place] [address] RBC (Bld) [#/Vol] 5.79 mil/cmm High 4.20-5.40 [facility] Comment on above: Performed By: #### L MACU #### [place] [address] Lactic acidon 06-08-2018 Lactate [Moles/Vol] 1.2 mmol/L Normal 0.4-2.0 [facility] Comment on above: Performed By: #### L MACU #### [place] [address] MDRD eGFRon 06-08-2018 GFR/1.73 sq M predicted among non-blacks MDRD (S/P/Bld) [Vol rate/Area] mL/min/{1.73_m2} Normal >60mL/min/ 1.73m2 [facility] Comment on above: Result Comment: If t he patient is , multiply the result by 1.210. Performed By: #### L ACET #### [place] [address] NT Pro BNPon 06-08-2018 Protein mass conc 763 pg/mL High <125 [facility] Comment on above: Performed By: #### H STNT #### [facility] [address] [facility] [phone] PROGRESSon 06-08-2018 Protein mass conc HNO ID: [id number] Author: Abbi Valencia (Pharmacist) Service: Pharmacy Author Type: Pharmacist Type: Progress Notes Filed: 06/08/2018 9:13 PM Note Text: CLINICAL PHARMACY Quality Measures PATIENT NAME: Trenton Jackson SERVICE DATE: 06/08/2018 TIME: 9:12 PM ACEI/ARB indication for Heart Failure/AMI Core Measures Review/Screening: LVEF = 36% from echocardiogram on 12/03/17. SELENE-I/ARB: Yes, Patient is on SELENE-I: lisinopril Aspirin indication: Yes, Patient is on Aspirin Beta-Linda indication: Yes, patient is on: metoprolol succinate Statin indication: Yes, patient is on atorvastatin ABBI VALENCIA, PHARMD, [facility] PAGER / Extension: [phone] Normal [facility] Urinalysis Routineon 019 Appearance (U) 1+ (HAZY) Normal [facility] Comment on above: Performed By: #### L ACET #### [place] [address] Bilirubin Urine Negative Normal Negative [facility] Comment on above: Performed By: #### L ACET #### [place] [address] Color (U) YELLOW Normal [facility] Comment on above: Performed By: #### L ACET #### [place] [address] Ep Cells Urine 2-5 Normal 0-5 [facility] Comment on above: Performed By: #### L ACET #### [place] [address] Glucose Ql (U) 2+ Abnormal Negative [facility] Comment on above: Performed By: #### L ACET #### [place] [address] Hemoglobin,Urine Negative Normal Negative [facility] Comment on above: Performed By: #### L ACET #### [place] [address] Ketone Urine 1+ Abnormal Negative [facility] Comment on above: Performed By: #### L ACET #### [place] [address] Leukocytes Esterase Negative Normal Negative [facility] Comment on above: Performed By: #### L ACET #### [place] [address] Nitrites Urine Negative Normal Negative [facility] Comment on above: Performed By: #### L ACET #### [place] [address] pH (U) 7.0 [pH] Normal 5.0-8.0 [facility] Comment on above: Performed By: #### L ACET #### [place] [address] Protein (U) [Mass/Vol] Negative Normal Negative [facility] Comment on above: Performed By: #### L ACET #### [place] [address] RBC LM.HPF (Urine sed) [#/Area] 0-3 Normal 0-3 [facility] Comment on above: Performed By: #### L ACET #### [place] [address] Specific [place], Ur 1.015 Normal 1.005-1 .03 0 [facility] Comment on above: Performed By: #### L ACET #### [place] [address] Urobilinogen,Ur 0.2 EU/dL Normal 0.0-1.0 [facility] Comment on above: Performed By: #### L ACET #### [place] [address] WBC LM.HPF (Urine sed) [#/Area] NONE Normal 0-5 [facility] Comment on above: Performed By: #### L ACET #### [place] [address] Urine HCG, Qual.on 9 Beta HCG ( test) Ql (U) Negative Normal Negative [facility] Comment on above: Performed By: #### L ACET #### [facility] [address] [place] [id number] ABDOMEN AND PELVIS WITH C ONTRASTon 06-07-2018 CT ABDOMEN AND PELVIS WITH CONTRAST Performed at [facility] APPROVED BY: Chalo Russell MD EXAMINATION: CT ABDOMEN AND PELVIS WITH IV CONTRAST CLINICAL HISTORY: Left lower quadrant pain, history of acute diverticulitis, evaluate perforation versus abscess TECHNIQUE: CT of the abdomen and pelvis was performed using standard technique, scanning from just above the dome of the diaphragm to the symphysis pubis. MQ: CTAP_3 Contrast: IV: 150 ml of Omnipaque 300 : ml of CT Radiation dose: Integrated Dose-length product (DLP) for this visit = 714 mGy*cm. CT Dose Reduction Employed: 1-automated exposure control was used COMPARISON: None. RESULT: Liver: Stable 2 cm hypodense lesion in the right hepatic lobe on axial image 15. Stable 2.2 cm subcapsular hypodense lesion anterior-inferior right hepatic lobe on axial image 31. Biliary: No bile duct dilation. Cholecystectomy clips Spleen: No mass. No splenomegaly. Pancreas: No mass or duct dilation. Adrenals: Stable bilateral adrenal nodules Kidneys: No evidence hydronephrosis GI tract: Compared to 06/04/2018 CT, interval decrease in wall thickening of the sigmoid colon. Interval decrease in pericolonic inflammation at the distal descending/sigmoid junction consistent with a decrease in severity of acute diverticulitis. No focal drainable abscess. Moderate volume retained fecal material throughout the colon. Interval decrease in retained fluid throughout the small bowel which is no longer distended Status post appendectomy Lymph nodes: No abdominal or pelvic lymphadenopathy. Mesentery/Peritoneum: No ascites or mass. No evidence of pneumoperitoneum Retroperitoneum: No mass. Vasculature: The celiac axis and SMA are patent. The portal vein and branches, splenic vein, SMV, and hepatic veins are patent. Pelvis: No mass, ascites or fluid collection. No evidence of a gynecological mass Bones/Soft Tissues: Unremarkable Lower thorax: Unremarkable. IMPRESSION: 1.Compared to 06/04/2018 CT, interval decrease in severity of acute diverticulitis. There remains a mild degree of acute inflammation of the sigmoid colon, seen best axial image 90. 2. No evidence of an abscess or pneumoperitoneum Normal [facility] Comprehensive Panelon 2018 Albumin [Mass/Vol] 3.5 g/dL Normal 3.4-5.0 [facility] Comment on above: Performed By: #### L MACU #### [facility] [address] [place] [address] ALP [Catalytic activity/Vol] 112 U/L Normal 46-116 [facility] Comment on above: Performed By: #### L MACU #### [facility] [address] [place] [address] ALT-SGPT Blood 17 U/L Normal 14-63 [facility] Comment on above: Performed By: #### L MACU #### [facility] [address] [place] [address] Anion gap [Moles/Vol] 14 mmol/L Normal 8-20 [facility] Comment on above: Performed By: #### L MACU #### [facility] [address] [place] [address] AST-SGOT Blood 16 U/L Normal 15-37 [facility] Comment on above: Performed By: #### L MACU #### [facility] [address] [place] [address] Bilirubin Ql (U) 0.7 mg/dL Normal 0.2-1.0 [facility] Comment on above: Performed By: #### L MACU #### [facility] [address] [place] [address] Calcium [Mass/Vol] 9.1 mg/dL Normal 8.5-10.1 [facility] Comment on above: Performed By: #### L MACU #### [facility] [address] [place] [address] Chloride [Moles/Vol] 97 mmol/L Low 98-107 [facility] Comment on above: Performed By: #### L MACU #### [facility] [address] [place] [address] CO2 Blood 27 mEq/L Normal 21-32 [facility] Comment on above: Performed By: #### L MACU #### [facility] [address] [place], [place] [address] Creatinine [Mass/Vol] 0.57 mg/dL Normal 0.51-0.95 [facility] Comment on above: Performed By: #### L MACU #### [facility] [address] [place], [place] [address] Glucose [Mass/Vol] 416 mg/dL Critically high 70-99 [facility] Comment on above: Performed By: #### L MACU #### [facility] [address] [place], [place] [address] Potassium [Moles/Vol] 3.9 mmol/L Normal 3.5-5.1 [facility] Comment on above: Performed By: #### L MACU #### [facility] [address] [place], [place] [address] Protein [Mass/Vol] 7.4 g/dL Normal 6.4-8.2 [facility] Comment on above: Performed By: #### L MACU #### [facility] [address] [place], [place] [address] Sodium [Moles/Vol] 134 mmol/L Low 136-145 [facility] Comment on above: Performed By: #### L MACU #### [facility] [address] [place], [place] [address] Urea nitrogen [Mass/Vol] 7 mg/dL Normal 7-25 [facility] Comment on above: Performed By: #### L MACU #### [address] [address] Urea nitrogen/Creatinine [Mass ratio] 12 mg/mg Normal 10-20 [facility] Comment on above: Performed By: #### L MACU #### [facility] [address] [place], [place] [address] Glucose Meteron 06-07-2018 Glucose [Mass/Vol] 326 mg/dL High 70-99 [facility] Comment on above: Result Comment: CHAYITO MÉNDEZ MD NOTIFIED Testing performed at [address] [address] Performed By: #### L MACU #### [facility] [address] [place] [address] Hemogram/Diffon 06-07-2018 Abs. Baso 0.07 thou/cmm Normal 0.00-0.08 [facility] Comment on above: Performed By: #### L CBCD #### [facility] [address] [place] [address] Abs. [place] 0.43 thou/cmm Normal 0.20-1.00 [facility] Comment on above: Performed By: #### L CBCD #### [place] [address] Abs. Neut (ANC) 9.53 thou/cmm High 3.00-5.67 [facility] Comment on above: Performed By: #### L CBCD #### [place] [address] Basophils/100 WBC (Bld) 0.6 % Normal [facility] Comment on above: Performed By: #### L CBCD #### [place] [address] Eosinophils (Bld) [#/Vol] 0.17 thou/cmm Normal 0.00-0.41 [facility] Comment on above: Performed By: #### L CBCD #### [place] [address] Eosinophils/100 WBC (Bld) 1.4 % Normal [facility] Comment on above: Performed By: #### L CBCD #### [place] [address] Erythrocyte distribution width (RBC) [Ratio] 12.8 % Normal 11.5-15.9 [facility] Comment on above: Performed By: #### L CBCD #### [place] [address] Hematocrit (Bld) [Volume fraction] 47.7 % High 37.0-47.0 [facility] Comment on above: Performed By: #### L CBCD #### [place] [address] Hemoglobin (Bld) [Mass/Vol] 16.1 g/dL High 12.0-16.0 [facility] Comment on above: Performed By: #### L CBCD #### [facility] [address] [place], [place] [address] Lymphocytes (Bld) [#/Vol] 2.00 thou/cmm Normal 1.50-3.65 [facility] Comment on above: Performed By: #### L CBCD #### [facility] [address] [place], [place] [id number] Lymphocytes/100 WBC (Bld) 16.4 % Normal [facility] Comment on above: Performed By: #### L CBCD #### [facility] [address] [place] [address] MCH (RBC) [Entitic mass] 27.3 pg Normal 27.0-31.0 [facility] Comment on above: Performed By: #### L CBCD #### [place] [address] MCHC (RBC) [Mass/Vol] 33.8 % Normal 32.0-36.0 [facility] Comment on above: Performed By: #### L CBCD #### [place] [address] MCV (RBC) [Entitic vol] 81.0 fL Normal 81.0-99.0 [facility] Comment on above: Performed By: #### L CBCD #### [place] [address] Monocytes/100 WBC (Bld) 3.5 % Normal [facility] Comment on above: Performed By: #### L CBCD #### [place] [address] Platelet mean volume (Bld) [Entitic vol] 9.5 fL Normal 7.1-10.5 [facility] Comment on above: Performed By: #### L CBCD #### [address] [address] Platelets (Bld) [#/Vol] 235 thou/cmm Normal 150-400 [facility] Comment on above: Performed By: #### L CBCD #### [facility] [address] [place] [address] RBC (Bld) [#/Vol] 5.89 mil/cmm High 4.20-5.40 [facility] Comment on above: Performed By: #### L CBCD #### [facility] [address] [place] [address] Seg Neutrophil 78.1 % Normal [facility] Comment on above: Performed By: #### L CBCD #### [facility] [address] [place] [address] WBC (Bld) [#/Vol] 12.2 thou/cmm High 4.8-10.8 [facility] Comment on above: Performed By: #### L CBCD #### [place] [address] Lactic acidon 06-07-2018 Lactate [Moles/Vol] 1.6 mmol/L Normal 0.4-2.0 [facility] Comment on above: Performed By: #### L MACU #### [place] [address] MDRD eGFRon 06-07-2018 GFR/1.73 sq M predicted among non-blacks MDRD (S/P/Bld) [Vol rate/Area] mL/min/{1.73_m2} Normal >60mL/min/ 1.73m2 [facility] Comment on above: Result Comment: If t he patient is , multiply the result by 1.210. Performed By: #### L MACU #### [facility] [address] [place] [address] Macroscopic Urinalysison Appearance (U) CLEAR Normal [facility] Comment on above: Performed By: #### L MACU #### [facility] [address] [place] [address] Bilirubin Urine Negative Normal Negative [facility] Comment on above: Performed By: #### L MACU #### [place] [address] Color (U) YELLOW Normal [facility] Comment on above: Performed By: #### L MACU #### [facility] [address] [place] [address] Glucose Ql (U) 3+ Abnormal Negative [facility] Comment on above: Performed By: #### L MACU #### [place] [address] Hemoglobin,Urine Negative Normal Negative [facility] Comment on above: Performed By: #### L MACU #### [place] [address] Ketone Urine TRACE Abnormal Negative [facility] Comment on above: Performed By: #### L MACU #### [place] [address] Leukocytes Esterase Negative Normal Negative [facility] Comment on above: Performed By: #### L MACU #### [place] [address] Nitrites Urine Negative Normal Negative [facility] Comment on above: Performed By: #### L MACU #### [place] [address] pH (U) 6.5 [pH] Normal 5.0-8.0 [facility] Comment on above: Performed By: #### L MACU #### [place] [address] Protein (U) [Mass/Vol] Negative Normal Negative [facility] Comment on above: Performed By: #### L MACU #### [place] [address] Specific [place], Ur <=1.005 Normal 1.005-1 .03 0 [facility] Comment on above: Performed By: #### L MACU #### [place] [address] Urobilinogen,Ur 0.2 EU/dL Normal 0.0-1.0 [facility] Comment on above: Performed By: #### L MACU #### [place] [address] CT ABDOMEN AND PELVIS WITH C ONTRASTon 06-04-2018 CT ABDOMEN AND PELVIS WITH CONTRAST Performed at [facility] APPROVED BY: Nixon Cortez MD EXAM TITLE: CT OF THE ABDOMEN AND PELVIS WITH INTRAVENOUS CONTRAST DATE:06/04/2018 15:07 COMPARISON: CT abdomen April 2017 CLINICAL INDICATION/HISTORY: Abdominal pain and nausea; history of diverticula; possible diverticulitis CT Radiation dose: Integrated Dose-length product (DLP) for this visit = 756 mGy*cm. CT Dose Reduction Employed: Automated exposure control (AEC) was used. TECHNIQUE: Following the administration of 150 cc Omnipaque 300 intravenous contrast axial images were obtained of the abdomen and pelvis in a single portal-venous phase. Oral contrast was not administered. FINDINGS: Included lung bases and lower thorax: There is again noted to be an oval 2.5 cm hypodense structure within the left-sided epicardial space. There has been no significant change compared to September 2006. This is therefore consistent with a benign epicardial cyst. Lung bases appear clear. Included osseous structures: Unremarkable Liver: 2 cm hypodense lesion within the right hepatic lobe. There has been no significant change compared to May 2014 and therefore this is benign. There is also a 2.2 cm hypodense lesion slightly more inferior within the right hepatic lobe which is also stable compared to 2013 and therefore benign. No suspicious hepatic abnormality. Gallbladder and extrahepatic bile duct: Surgically absent gallbladder. No ductal dilatation. Pancreas and spleen: Unremarkable Adrenal glands: There are bilateral adrenal nodules measuring 1.7 cm on the right and 1.5 cm on the left. These have not significantly changed compared to the prior exams and therefore represent benign adenomas. Kidneys: There is a small left renal cyst. Kidneys are otherwise unremarkable. No calculi or hydronephrosis. Ureters: No abnormal dilatation or obstructing calculus is seen. Urinary Bladder: Adequately distended with no specific abnormality seen. Pelvic Organs: Unremarkable Stomach and small bowel: Mild fluid-filled dilatation of the small bowel. This is likely reactive. No focal obstruction or small bowel wall thickening. Large bowel: There is wall thickening and edema of the sigmoid colon. This is within a region of diverticula. This is suspicious for mild acute diverticulitis. No perforation or abscess formation. Appendix: Surgically absent Trace pelvic free fluid. No free air. No lymphadenopathy is seen. The aorta is normal in caliber. IMPRESSION: 1. Edema of the sigmoid colon which would be consistent with acute diverticulitis. No perforation or abscess formation. 2. Mildly increased fluid content of the small bowel, presumably reactive to the colonic process. 3. Multiple additional stable chronic findings as above Normal [facility] Comprehensive Panelon 2018 Albumin [Mass/Vol] 3.9 g/dL Normal 3.4-5.0 [facility] Comment on above: Performed By: #### L P14 #### [facility] [address] [place] [address] ALP [Catalytic activity/Vol] 139 U/L High 46-116 [facility] Comment on above: Performed By: #### L P14 #### [place] [address] ALT-SGPT Blood 22 U/L Normal 14-63 [facility] Comment on above: Performed By: #### L P14 #### [place] [address] Anion gap [Moles/Vol] 13 mmol/L Normal 8-20 [facility] Comment on above: Performed By: #### L P14 #### [place] [address] AST-SGOT Blood 19 U/L Normal 15-37 [facility] Comment on above: Performed By: #### L P14 #### [place] [address] Bilirubin Ql (U) 0.7 mg/dL Normal 0.2-1.0 [facility] Comment on above: Performed By: #### L P14 #### [facility] [address] [place] [address] Calcium [Mass/Vol] 9.5 mg/dL Normal 8.5-10.1 [facility] Comment on above: Performed By: #### L P14 #### [facility] [address] [place] [address] Chloride [Moles/Vol] 97 mmol/L Low 98-107 [facility] Comment on above: Performed By: #### L P14 #### [place] [address] CO2 Blood 23 mEq/L Normal 21-32 [facility] Comment on above: Performed By: #### L P14 #### [facility] [address] [place], [place] [address] Creatinine [Mass/Vol] 0.56 mg/dL Normal 0.51-0.95 [facility] Comment on above: Performed By: #### L P14 #### [facility] [address] [place], [place] [address] Glucose [Mass/Vol] 323 mg/dL High 70-99 [facility] Comment on above: Performed By: #### L P14 #### [facility] [address] [place], [place] [address] Potassium [Moles/Vol] 4.5 mmol/L Normal 3.5-5.1 [facility] Comment on above: Performed By: #### L P14 #### [address] [address] Protein [Mass/Vol] 8.0 g/dL Normal 6.4-8.2 [facility] Comment on above: Performed By: #### L P14 #### [address] [address] Sodium [Moles/Vol] 129 mmol/L Low 136-145 [facility] Comment on above: Performed By: #### L P14 #### [address] [address] Urea nitrogen [Mass/Vol] 9 mg/dL Normal 7-25 [facility] Comment on above: Performed By: #### L P14 #### [address] [address] Urea nitrogen/Creatinine [Mass ratio] 16 mg/mg Normal 10-20 [facility] Comment on above: Performed By: #### L P14 #### [address] [address] HCG, Qual. Serumon 9 HCG, Qual. Serum Negative Normal Negative [facility] Comment on above: Performed By: #### L SHCG #### [address] [address] Hemogram/Manual Diffon 06-04 Abs. Baso 0.00 thou/cmm Normal 0.00-0.08 [facility] Comment on above: Performed By: #### L MCBD #### [facility] [address] [place] [address] Abs. Eosin 0.17 thou/cmm Normal 0.00-0.41 [facility] Comment on above: Performed By: #### L MCBD #### [facility] [address] [place] [address] Abs. Lymph 3.46 thou/cmm Normal 1.50-3.65 [facility] Comment on above: Performed By: #### L MCBD #### [facility] [address] [place] [address] Abs. [place] 0.69 thou/cmm Normal 0.20-1.00 [facility] Comment on above: Performed By: #### L MCBD #### [facility] [address] [place] [address] Abs. Neut (ANC) 12.98 thou/cmm High 3.00-5.67 [facility] Comment on above: Performed By: #### L MCBD #### [facility] [address] [place] [address] Atypical Lymph 3.0 % Normal [facility] Comment on above: Performed By: #### L MCBD #### [place] [address] Basophil 0.0 % Normal [facility] Comment on above: Performed By: #### L MCBD #### [facility] [address] [place] [address] Eosinophil 1.0 % Normal [facility] Comment on above: Performed By: #### L MCBD #### [facility] [address] [place] [address] Lymphocyte 17.0 % Normal [facility] Comment on above: Performed By: #### L MCBD #### [place] [address] Metamyelocytes 2.0 % Normal [facility] Comment on above: Performed By: #### L MCBD #### [facility] [address] [place] [address] Monocyte 4.0 % Normal [facility] Comment on above: Performed By: #### L MCBD #### [facility] [address] [place] [address] Platelets (Bld) [#/Vol] Normal Normal [facility] Comment on above: Performed By: #### L MCBD #### [facility] [address] [place] [address] RBC morphology finding Nom (Bld) Normal Normal [facility] Comment on above: Performed By: #### L MCBD #### [facility] [address] [place] [address] Seg Neutrophil 73.0 % Normal [facility] Comment on above: Performed By: #### L MCBD #### [place] [address] Toxic Granulation Few Normal [facility] Comment on above: Performed By: #### L MCBD #### [place] [address] WBC Morphology see below Normal [facility] Comment on above: Result Comment: Toxi c vacuoles present Performed By: #### L MCBD #### [place] [address] Diff Type Manual Diff Normal [facility] Comment on above: Performed By: #### L MCBD #### [place] [address] Erythrocyte distribution width (RBC) [Ratio] 13.2 % Normal 11.5-15.9 [facility] Comment on above: Performed By: #### L MCBD #### [facility] [address] [place] [address] Hematocrit (Bld) [Volume fraction] 51.8 % High 37.0-47.0 [facility] Comment on above: Performed By: #### L MCBD #### [place] [address] Hemoglobin (Bld) [Mass/Vol] 17.7 g/dL High 12.0-16.0 [facility] Comment on above: Performed By: #### L MCBD #### [facility] [address] [place], [place] [address] MCH (RBC) [Entitic mass] 27.5 pg Normal 27.0-31.0 [facility] Comment on above: Performed By: #### L MCBD #### [facility] [address] [place], [place] [address] MCHC (RBC) [Mass/Vol] 34.2 % Normal 32.0-36.0 [facility] Comment on above: Performed By: #### L MCBD #### [facility] [address] [place] [address] MCV (RBC) [Entitic vol] 80.4 fl Low 81.0-99.0 [facility] Comment on above: Performed By: #### L MCBD #### [facility] [address] [place] [address] Platelet mean volume (Bld) [Entitic vol] 10.3 fl Normal 7.1-10.5 [facility] Comment on above: Performed By: #### L MCBD #### [facility] [address] [place] [address] Platelets (Bld) [#/Vol] 224 thou/cmm Normal 150-400 [facility] Comment on above: Performed By: #### L MCBD #### [facility] [address] [place] [address] RBC (Bld) [#/Vol] 6.44 mil/cmm High 4.20-5.40 [facility] Comment on above: Performed By: #### L MCBD #### [facility] [address] [place] [address] WBC (Bld) [#/Vol] 17.3 thou/cmm High 4.8-10.8 [facility] Comment on above: Performed By: #### L MCBD #### [facility] [address] [place] [address] Ketoneson 06-04-2018 Ketones Ql (U) Negative Normal Negative [facility] Comment on above: Performed By: #### L ACET #### [facility] [address] [place] [address] Lipase Bloodon 06-04-2018 Lipase Blood 85 U/L Normal 73-393 [facility] Comment on above: Performed By: #### L LIP #### [place] [address] MDRD eGFRon 06-04-2018 GFR/1.73 sq M predicted among non-blacks MDRD (S/P/Bld) [Vol rate/Area] mL/min/{1.73_m2} Normal >60mL/min/ 1.73m2 [facility] Comment on above: Result Comment: If t he patient is , multiply the result by 1.210. Performed By: #### L GFR #### [place] [address] Macroscopic Urinalysison Appearance (U) CLEAR Normal [facility] Comment on above: Performed By: #### L MACU #### [place] [address] Bilirubin Urine Negative Normal Negative [facility] Comment on above: Performed By: #### L MACU #### [place] [address] Color (U) YELLOW Normal [facility] Comment on above: Performed By: #### L MACU #### [place] [address] Glucose Ql (U) 2+ Abnormal Negative [facility] Comment on above: Performed By: #### L MACU #### [place] [address] Hemoglobin,Urine Negative Normal Negative [facility] Comment on above: Performed By: #### L MACU #### [place] [address] Ketone Urine Negative Normal Negative [facility] Comment on above: Performed By: #### L MACU #### [place] [address] Leukocytes Esterase Negative Normal Negative [facility] Comment on above: Performed By: #### L MACU #### [facility] [address] [place] [address] Nitrites Urine Negative Normal Negative [facility] Comment on above: Performed By: #### L MACU #### [facility] [address] [place] [address] pH (U) 5.0 [pH] Normal 5.0-8.0 [facility] Comment on above: Performed By: #### L MACU #### [place] [address] Protein (U) [Mass/Vol] Negative Normal Negative [facility] Comment on above: Performed By: #### L MACU #### [place] [address] Specific [place], Ur 1.020 Normal 1.005-1 .03 0 [facility] Comment on above: Performed By: #### L MACU #### [place] [address] Urobilinogen,Ur 0.2 EU/dL Normal 0.0-1.0 [facility] Comment on above: Performed By: #### L MACU #### [place] [address] Macroscopic Urinalysison Appearance (U) CLEAR Normal [facility] Comment on above: Performed By: #### L MACU #### [place] [address] Bilirubin Urine Negative Normal Negative [facility] Comment on above: Performed By: #### L MACU #### [place] [address] Color (U) YELLOW Normal [facility] Comment on above: Performed By: #### L MACU #### [place] [address] Glucose Ql (U) 2+ Abnormal Negative [facility] Comment on above: Performed By: #### L MACU #### [place] [address] Hemoglobin,Urine Negative Normal Negative [facility] Comment on above: Performed By: #### L MACU #### [facility] [address] [place] [address] Ketone Urine Negative Normal Negative [facility] Comment on above: Performed By: #### L MACU #### [facility] [address] [place] [address] Leukocytes Esterase Negative Normal Negative [facility] Comment on above: Performed By: #### L MACU #### [facility] [address] [place] [address] Nitrites Urine Negative Normal Negative [facility] Comment on above: Performed By: #### L MACU #### [place] [address] pH (U) 6.0 [pH] Normal 5.0-8.0 [facility] Comment on above: Performed By: #### L MACU #### [place] [address] Protein (U) [Mass/Vol] Negative Normal Negative [facility] Comment on above: Performed By: #### L MACU #### [facility] [address] [place] [address] Specific [place], Ur 1.020 Normal 1.005-1 .03 0 [facility] Comment on above: Performed By: #### L MACU #### [place] [address] Urobilinogen,Ur 0.2 EU/dL Normal 0.0-1.0 [facility] Comment on above: Performed By: #### L MACU #### [place] [address] CBC and Differentialon 12-14 Abs Baso 0.06 k/uL Normal <0.11 [facility] Comment on above: Performed By: #### N MENDEZ VELÁSQUEZMB #### [facility] [address] [place] [address] Abs Erie 0.69 k/uL Normal <0.87 [facility] Comment on above: Performed By: #### N DIDIER CKAMARILISMB #### [facility] [address] [place] [address] Abs Neut 8.14 k/uL High 1.45-7.50 [facility] Comment on above: Performed By: #### N TBAMOR CKCKMB #### [facility] [address] Basophils/100 WBC (Bld) 0.5 % Normal [facility] Comment on above: Performed By: #### N TBNP CKCKMB #### [facility] [address] [place] [address] Eosinophils #/vol (Bld) 0.14 10*3/uL Normal <0.46 [facility] Comment on above: Performed By: #### N TBAMOR CKCKMB #### [facility] [address] [place] [address] Eosinophils/100 WBC (Bld) 1.2 % Normal [facility] Comment on above: Performed By: #### N TBAMOR CKCKMB #### [facility] [address] [place] [address] Erythrocyte distribution width Ratio (RBC) 13.1 % Normal 11.5-15.0 [facility] Comment on above: Performed By: #### N TBAMOR CKCKMB #### [facility] [address] [place] [address] Hematocrit Volume Fraction (Bld) 46.6 % High 36.0-46.0 [facility] Comment on above: Performed By: #### N TBAMOR CKCKMB #### [facility] [address] [place] [address] Hemoglobin mass conc (Bld) 15.9 g/dL High 11.5-15.5 [facility] Comment on above: Performed By: #### N TBNP, CKCKMB #### [facility] [address] [place] [address] Lymphocytes #/vol (Bld) 2.69 10*3/uL Normal 1.00-4.00 [facility] Comment on above: Performed By: #### N TBNP, CKCKMB #### [facility] [address] [place], [place] [id number] Lymphocytes/100 WBC (Bld) 23.0 % Normal [facility] Comment on above: Performed By: #### N TBNP CKCKMB #### [facility] [address] [place] [place] [address] MCH Entitic mass (RBC) 28.0 pG Normal 26.0-34.0 [facility] Comment on above: Performed By: #### N DIDIER CKCKMB #### [facility] [address] [place] [place] [address] MCHC mass conc (RBC) 34.1 g/dL Normal 30.5-36.0 [facility] Comment on above: Performed By: #### N DIDIER CKCKMB #### [facility] [address] [place] [address] MCV Entitic volume (RBC) 82.0 fL Normal 80.0-100.0 [facility] Comment on above: Performed By: #### N DIDIER CKAMARILISMB #### [facility] [address] [place] [address] Monocytes/100 WBC (Bld) 5.9 % Normal [facility] Comment on above: Performed By: #### N DIDIER CKAMARILISMB #### [facility] [address] [place] [address] Neutrophils/100 WBC (Bld) 69.4 % Normal [facility] Comment on above: Performed By: #### N DIDIER CKAMARILISMB #### [facility] [address] [place] [address] Platelet mean volume Entitic volume (Bld) 10.5 fL Normal 9.0-12.7 [facility] Comment on above: Performed By: #### N DIDIER CKCKMB #### [facility] [address] [place] [place] [address] Platelets #/vol (Bld) 236 10*3/uL Normal 150-400 [facility] Comment on above: Performed By: #### N DIDIER CKCKMB #### [facility] [address] [place] [place] [address] RBC #/vol (Bld) 5.68 10*6/uL High 3.90-5.20 [facility] Comment on above: Performed By: #### N DIDIER CKCKMB #### [facility] [address] [place] [place] [address] WBC #/vol (Bld) 11.72 10*3/uL High 3.70-11.00 [facility] Comment on above: Performed By: #### N TBNP, CKCKMB #### [facility] [address] [place] [phone] CK, Total and CKMBon 018 CK enzyme act/vol 41 U/L Low 42-196 [facility] Comment on above: Performed By: #### N TBNP, CKCKMB #### [facility] [address] [place] [phone] CK MB % CK MB % not reported with CK <100 U/L. Normal 0.0-4.0 [facility] [place] Comment on above: Performed By: #### N TBNP, CKCKMB #### [facility] [address] [phone] MB 1.5 ng/mL Normal <4.3 [facility] [place] Comment on above: Performed By: #### N TBNP, CKCKMB #### [facility] [place] [facility] [address] [phone] CT CHEST W IVCON PEon 2017 CT CHEST W IVCON PE * * *Final Report* * * DATE OF EXAM: Dec 14 2017 6:46PM [facility] [place] 0540 - CT CHEST W IVCON PE / PROCEDURE REASON: PE suspected, intermediate prob, positive D-dimer * * * * Physician Interpretation * * * * EXAMINATION: CHEST CT WITH CONTRAST (PULMONARY EMBOLISM PROTOCOL) CLINICAL HISTORY: PE suspected, intermediate prob, positive D-dimer Technique: Spiral CT acquisition of the chest from the thoracic inlet to the upper abdomen following IV contrast. MQ: CTCPER_4 Contrast: 100 mL Omnipaque [address] Dose-Length Product: 517.88 mGy*cm CT Dose Reduction Employed: Automated exposure control(AEC) and iterative recon Comparison: Chest x-ray of earlier today RESULT: Limitations: None. Evaluation for thromboembolic disease: - Right heart chambers: No thromboembolic disease. - Main pulmonary arteries: No thromboembolic disease. - Lobar pulmonary arteries: No thromboembolic disease. - Segmental pulmonary arteries: No thromboembolic disease. - Subsegmental pulmonary arteries: No thromboembolic disease. Lines, tubes, and devices: None. Lung parenchyma and pleura: No consolidation. No suspicious pulmonary nodule. No pleural effusion. Central airways are patent. Thoracic inlet, heart, and mediastinum: Scattered mediastinal lymph nodes the largest in the pretracheal region measuring 1.7 x 0.6 cm and along the main left pulmonary artery measuring 1.3 x 0.7, image 91. Other subcentimeter lymph nodes noted. No lymphadenopathy in the axillary, mediastinal, or hilar regions. The thoracic aorta and main pulmonary artery are normal in caliber. The cardiac chambers are normal in size. No coronary artery atherosclerotic calcifications are noted, although the study is not optimized for coronary assessment. No pericardial effusion or thickening. Bones and soft tissues: No destructive bone lesion. Chest wall is unremarkable. Upper abdomen: Cholecystectomy. Nodularity of both adrenal glands, on the left measuring 1.5 x 1.4 cm and on the right measuring 1.5 x 1.5 cm, possibly adenomas.. IMPRESSION: No CT evidence of pulmonary embolism. Scattered mediastinal lymph nodes. Cholecystectomy. Bilateral adrenal nodules, possibly adenomas. Concrete Tile Machine Operator: GEORGE Transcribe Date/Time: Dec 14 2017 7:14P Dictated by : WILLA VELASCO MD This examination was interpreted and the report reviewed and electronically signed by: WILLA VELASCO MD on Dec 14 2017 7:21PM EST [id number] Normal [facility] [place] Comp Metabolic Panelon 12-14 Albumin mass conc 3.8 g/dL Low 3.9-4.9 [facility] [place] Comment on above: Performed By: #### N DIDIER CKCKMB #### [facility] [place] Laboratory [address] [place] [address] ALP enzyme act/vol 82 U/L Normal 32-117 [facility] [place] Comment on above: Performed By: #### N DIDIER CKCKMB #### [facility] [place] [facility] [address] [place] [address] ALT enzyme act/vol 17 U/L Normal 7-38 [facility] [place] Comment on above: Performed By: #### N DIDIER CKCKMB #### [facility] [place] [facility] [address] [place] [address] Anion gap molar conc 10 mmol/L Normal 9-18 [facility] Comment on above: Performed By: #### N TBAMOR CKCKMB #### [facility] [place] [facility] [address] [place] [address] AST enzyme act/vol 17 U/L Normal 13-35 [facility] [place] Comment on above: Performed By: #### N TBAMOR CKCKMB #### [facility] [place] [facility] [address] [address] Bilirubin mass conc 0.6 mg/dL Normal 0.2-1.3 [facility] Comment on above: Performed By: #### N TBAMOR CKCKMB #### [facility] [place] [facility] [address] [address] Calcium mass conc 8.9 mg/dL Normal 8.5-10.2 [facility] [place] Comment on above: Performed By: #### N TBAMOR CKCKMB #### [facility] [place] [facility] [address] [address] Chloride molar conc 99 mmol/L Normal 97-105 [facility] Comment on above: Performed By: #### N TBAMOR CKCKMB #### [facility] [place] [facility] [address] [address] CO2 molar conc 28 mmol/L Normal 22-30 [facility] [place] Comment on above: Performed By: #### N TBAMOR CKCKMB #### [facility] [place] [facility] [address] [address] Creatinine mass conc 0.67 mg/dL Normal 0.58-0.96 [facility] Comment on above: Performed By: #### N TBAMOR CKCKMB #### [facility] [place] [facility] [address] [address] eGFR- Amer. >60 Normal [facility] [place] Comment on above: Performed By: #### N TBAMOR CKCKMB #### [facility] [place] [facility] [address] [place] [address] GFR/1.73 sq M predicted among non-blacks MDRD vol rate/area (S/P/Bld) mL/min/{1.73_m2} Normal [facility] [place] Comment on above: Result Comment: eGFR (Estimated GFR) Units of measure: mL/min/1.73 meters squared eGFR is derived from the reexpressed MDRD Study equation using the following parameters: serum creatinine, age, gender and race. The creatinine assay has been calibrated to be traceable to IDMS. An eGFR <60 mL/min/1.73m2 for >3 months is consistent with chronic kidney disease. Refer to KDOQI guidelines for clinical interpretation. In patients with unstable renal function, e.g. those with acute kidney injury, the eGFR may not accurately reflect actual GFR. Performed By: #### N HITESH VELÁSQUEZ #### [facility] [place] [facility] [address] [address] Glucose mass conc 180 mg/dL High 74-99 [facility] [place] Comment on above: Result Comment: The [place] Diabetes [employer] (ADA) provides guidance for cutoff values for fasting glucose and random glucose. The ADA defines fasting as no caloric intake for at least 8 hours. Fasting plasma glucose results between 100 to 125 mg/dL indicate increased risk for diabetes (prediabetes). Fasting plasma glucose results greater than or equal to 126 mg/dL meet the criteria for diagnosis of diabetes. In the absence of unequivocal hyperglycemia, results should be confirmed by repeat testing. In a patient with classic symptoms of hyperglycemia or hyperglycemic crisis, random plasma glucose results greater than or equal to 200 mg/dL meet the criteria for diagnosis of diabetes. Reference: Standards of Medical Care in Diabetes 2016, [place] [employer]. Diabetes Care. 2016.39(Suppl 1). Performed By: #### N DIDIER CKAMARILISMB #### [facility] [place] [facility] [address] [place] [address] Potassium molar conc 4.2 mmol/L Normal 3.7-5.1 [facility] Comment on above: Performed By: #### N DIDIER CKCKMB #### [facility] [place] [facility] [address] [place] [address] Protein mass conc 6.9 g/dL Normal 6.3-8.0 [facility] [place] Comment on above: Performed By: #### N DIDIER CKCKMB #### [facility] [address] [address] Sodium molar conc 137 mmol/L Normal 136-144 [facility] [place] Comment on above: Performed By: #### N DIDIER CKCKMB #### [facility] [place] [facility] [address] [place] [address] Urea nitrogen mass conc 9 mg/dL Normal 7-21 [facility] Comment on above: Performed By: #### N DIDIER CKCKMB #### [facility] [place] [facility] [address] [place] [address] D dimeron 12-14-2017 D dimer 600 ng/mL FEU High 0-500 [facility] [place] Comment on above: Result Comment: The D-dimer assay can be used to exclude pulmonary embolism (PE) and deep vein thrombosis (DVT) in conjunction with a low pre-test probability. For patients with a suspected DVT, a D-dimer level below 500 ng/mL FEU has a negative predictive value of 99.2%, a sensitivity of 98.9%, and a specificity of 36.1%. For patients with a suspected PE, a D-dimer level below 500 ng/mL FEU has a negative predictive value of 99.1%, a sensitivity of 97.8%, and a specificity of 41.7%. Performed By: #### N TBNP, CKCKMB #### [facility] [address] [facility] [phone] ED NOTEon 12-14-2017 ED NOTE HNO ID: [id number] Author: Stacey Solano) CHAYITO Godinez Service: (none) Author Type: Registered Nurse Type: ED Notes Filed: 12/14/2017 7:58 PM Note Text: Patient in stable condition upon discharge. resp even and unlabored. No distress noted. Patient states she is feeling much better. Discharge and follow up reviewed, plan of care is agreed upon. Patient thankful for care upon discharge. [facility] ED NOTE HNO ID: [id number] Author: Lyla Ramírez RN Service: Nursing Author Type: Registered Nurse Type: ED Notes Filed: 12/14/2017 6:43 PM Note Text: Patient returned to the Emergency Department. [facility] ED NOTE HNO ID: [id number] Author: Lyla Ramírez RN Service: Nursing Author Type: Registered Nurse Type: ED Notes Filed: 12/14/2017 6:31 PM Note Text: Pt to CT with tech via wheelchair [facility] ED NOTE HNO ID: [id number] Author: Lyla Ramírez RN Service: Nursing Author Type: Registered Nurse Type: ED Notes Filed: 12/14/2017 6:14 PM Note Text: Dr. Conway rounding on pt at bedside [facility] ED NOTE HNO ID: [id number] Author: Lyla Ramírez RN Service: Nursing Author Type: Registered Nurse Type: ED Notes Filed: 12/14/2017 3:31 PM Note Text: Patient returned to the Emergency Department. [facility] ED NOTE HNO ID: [id number] Author: Lyla (Rn) CHAYITO Ramírez Service: Nursing Author Type: Registered Nurse Type: ED Notes Filed: 12/14/2017 3:25 PM Note Text: Pt to xray with tech. [facility] ED NOTE HNO ID: [id number] Author: Jazzmine AgudeloRn) CHAYITO Jarrett Service: Emergency Medicine Author Type: Registered Nurse Type: ED Notes Filed: 12/14/2017 3:28 PM Note Text: Report off care to Racquel STRATTON [facility] ED NOTE HNO ID: [id number] Author: Stacey AgudeloRn) CHAYITO Godinez Service: (none) Author Type: Registered Nurse Type: ED Notes Filed: 12/14/2017 2:57 PM Note Text: Patient presents to ED with chest pain x 4 days. Seen at [facility] and recently dc from [facility] ED PROV NOTEon 12-14-2017 Protein mass conc HNO ID: [id number] Author: iJmmie Conway DO Service: Emergency Medicine Author Type: Physician Type: ED Provider Notes Filed: 12/14/2017 7:42 PM Note Text: ED Provider Note Patient Name: Trenton Jackson SERVICE DATE: 12/14/17 History Patient presents with: Chest Pain 47-year-old female past medical history of diabetes hypertension hyperlipidemia tobacco abuse presents with chest pain. Patient recently had an admission at [facility] from December 04, 2017 2 December 08, 2017. She was transferred there after having a cardiac catheterization which showed concern for severe stenosis of the LAD. Upon further review of the cardiac catheterization film it was thought that the LAD lesion looked like sudden cardiac dissection and patient underwent fibromuscular dysplasia workup. MRIs of the abdomen and chest as well as carotid ultrasound were unremarkable. She states that over the past 4 days she has had a return of the chest pain. It is midsternal radiating to the left proximal extremity as well as left neck. It is worsened and relieved by nothing. It is throbbing in nature. Denies any lightheadedness dizziness nausea vomiting diaphoresis or dyspnea. PAST MEDICAL HISTORY Diagnosis Date - Chest pain - Diabetes mellitus - Diverticula of intestine - Hyperlipemia - Hypertension - Incisional hernia - Psychiatric disorder PAST SURGICAL HISTORY Procedure Laterality Date - APPENDECTOMY 2007 - DELIVERY ONLY , low transverse - COLONOSCOPY 2001? - DANDC, DIAG AND/OR THERAPEUTIC 10/17/12 - EGD W/O OR W/BRUSH/WASH 02/01/2016 EGD - HEART CATHETERIZATION - LAPAROSCOPIC CHOLEYCYSTECTOMY 1998 Cholecystectomy, lap - LIGATE FALLOPIAN TUBE Tubal ligation - PAST SURGICAL HISTORY OF 2009 cysy removed from neck - REPAIR INCIS HERNIA W MESH 10/16/13 - REPAIR INCISIONAL HERNIA,REDUCIBLE 10/16/13 - SIGMOIDOSCOPY FLEX DIAG 02/01/2016 Sigmoidoscopy, flexible FAMILY HISTORY Problem Relation Age of Onset - Thyroid Mother Graves - Diabetes Mother - Hypertension Mother - Diabetes Maternal Grandmother - Diabetes Maternal Uncle - Diabetes Maternal Aunt Social History Social History Main Topics - Smoking status: Current Every Day Smoker Packs/day: 0.50 Years: 27.00 - Smokeless tobacco: Never Used Comment: trying to quit - Alcohol use No - Drug use: No - Sexual activity: Yes Partners: Male control/ protection: Tubal Ligation ALLERGIES Allergen Reactions - Latex Itching Red and dry cracking skin Review of Systems Constitutional: Negative. HENT: Negative. Eyes: Negative. Respiratory: Negative. Cardiovascular: Positive for chest pain. Gastrointestinal: Negative. Genitourinary: Negative. Musculoskeletal: Negative. Skin: Negative. Neurological: Negative. Psychiatric/Behavioral: Negative. Physical Exam BP 122/66 Pulse 94 Temp (Src) 98.1 (Oral) Resp 16 Wt 181 lb (82.1kg) SpO2 94% LMP 10/27/2015 Physical Exam Constitutional: She is oriented to person, place, and time. She appears well-developed and well-nourished. HENT: Head: Normocephalic and atraumatic. Eyes: Conjunctivae and EOM are normal. Pupils are equal, round, and reactive to light. No scleral icterus. Neck: Normal range of motion. Neck supple. Cardiovascular: Normal rate, regular rhythm, normal heart sounds and intact distal pulses. Exam reveals no gallop and no friction rub. No murmur heard. Pulmonary/Chest: Effort normal and breath sounds normal. No respiratory distress. She has no wheezes. She has no rales. She exhibits no tenderness. Abdominal: Soft. Bowel sounds are normal. She exhibits no distension and no mass. There is no tenderness. There is no rebound and no guarding. Musculoskeletal: Normal range of motion. She exhibits no edema or tenderness. Lymphadenopathy: She has no cervical adenopathy. Neurological: She is alert and oriented to person, place, and time. No cranial nerve deficit. Skin: Skin is warm and dry. No rash noted. No erythema. Psychiatric: She has a normal mood and affect. Her behavior is normal. Nursing note and vitals reviewed. Diagnostic Testing ED Labs Ordered and Reviewed CBC + DIFF - Abnormal; Notable for the following: Result Value Ref Range WBC 11.72 (*) 3.70 - 11.00 k/uL RBC 5.68 (*) 3.90 - 5.20 m/uL Hemoglobin 15.9 (*) 11.5 - 15.5 g/dL Hematocrit 46.6 (*) 36.0 - 46.0 % Abs Neut (ANC) 8.14 (*) 1.45 - 7.50 k/uL All other components within normal limits COMP METABOLIC PANEL MAGNESIUM BLD CK TOTAL AND CK-MB TROPONIN T EKG ordered and interpreted as normal sinus rhythm rate of 99 age indeterminate anterior septal infarct, no appreciable changes from recent EKGs ED imaging studies ordered and reviewed CT chest negative for PE Chest x-ray negative Procedures ED Course / Clinical Impression IV started Nursing notes and vital signs reviewed Triage note reviewed Parenteral analgesia administered Medications administered aspirin and Toradol Placed on radiation monitor Reviewed and summarized previous medical records including recent admission at [facility] for extensive cardiac workup Consultation obtained resume writer Dr. Beyer Consultation recommendations unlikely to be related to recently diagnosed coronary artery dissection Stable upon arrival. EKG shows chronic abnormalities unchanged from recent EKGs.. Treated with aspirin followed by Toradol. Cardiac enzymes including troponin T and CK-MB within normal limits. Minimal leukocytosis noted. Chest x-ray negative. D-dimer mildly elevated. CT chest negative. Discussed with on-call resume writer, chest pain unlikely to be related to recently diagnosed coronary artery dissection. Patient with significant improvement pain post analgesia as noted above. Will be discharged home in stable condition with continued use of previously prescribed tramadol and new prescription for Flexeril thoroughly notified of sedating effects. Referral provided to auto customize painter, will follow-up with both resume writer and primary care physician as soon as possible and return immediately with any new or worsening or concerning symptoms. Patient updated and agreeable to current plan of care. All questions answered bedside. Discharge home. Clinical Impressions as of Dec 14 1937 Chest pain, unspecified type MDM / Disposition / Plan MDM The patient was DISCHARGED: Counseled patient regarding lab results AND radiology results AND need for follow-up. Discharged home with verbal and written instructions. They were instructed to return as needed for persistent or worsening symptoms or any new concerns. Given a prescription for the following medication(s): flexeril Condition at time of disposition: improved and stable SIGNATURE: DO Jimmie Helm DO 12/14/17 194 Normal [facility] Magnesiumon 12-14-2017 Magnesium mass conc 1.9 mg/dL Normal 1.7-2.3 [facility] Comment on above: Performed By: #### N TBAMOR, CKCKMB #### [facility] [address] [facility] [phone] Troponin Ton 12-14-2017 Troponin T.cardiac mass conc ug/L Normal 0.000-0.02 9 [facility] [place] Comment on above: Performed By: #### N TBNP, CKCKMB #### [facility] [address] [facility] [phone] XR CHEST 2V FRONTAL/LATon XR CHEST 2V FRONTAL/LAT * * *Final Repor t* * * DATE OF EXAM: Dec 14 2017 3:34PM MDX [id number] - XR CHEST 2V FRONTAL/LAT / PROCEDURE REASON: Chest pain, acute, nonspecific, low prob CAD * * * * Physician Interpretation * * * * EXAMINATION: CHEST RADIOGRAPH (2 VIEW FRONTAL and LATERAL) Clinical History: Chest pain, acute, nonspecific, low prob CAD MQ: XC2_5 Comparison: 11/30/2017 RESULT: Lines, tubes, and devices: Overlying monitor leads are in place. Lungs and pleura: Shallow inspiration. No consolidation. No lung mass. No pleural effusion. Cardiomediastinal silhouette: Normal cardiomediastinal silhouette. Other: . IMPRESSION: No acute radiographic abnormality. Concrete Tile Machine Operator: GEORGE Transcribe Date/Time: Dec 14 2017 3:44P Dictated by : WILLA VELASCO MD This examination was interpreted and the report reviewed and electronically signed by: WILLA VELASCO MD on Dec 14 2017 3:44PM EST [id number] Normal [facility] CBCon 12-04-2017 Erythrocyte distribution width Ratio (RBC) 13.1 % Normal 11.5-15.0 [facility] Comment on above: Performed By: #### C BCDIF, PT, PTT, CMP #### [facility] [address] [address] Hematocrit Volume Fraction (Bld) 44.2 % Normal 36.0-46.0 [facility] [place] Comment on above: Performed By: #### C BCDIF, PT, PTT, CMP #### [facility] [place] [facility] [address] [place] [address] Hemoglobin mass conc (Bld) 14.8 g/dL Normal 11.5-15.5 [facility] Comment on above: Performed By: #### C BCDIF, PT, PTT, CMP #### [facility] [address] [place] [address] MCH Entitic mass (RBC) 27.5 pG Normal 26.0-34.0 [facility] Comment on above: Performed By: #### C BCDIF, PT, PTT, CMP #### [facility] [address] [place] [address] MCHC mass conc (RBC) 33.5 g/dL Normal 30.5-36.0 [facility] Comment on above: Performed By: #### C BCDIF, PT, PTT, CMP #### [facility] [address] [place] [address] MCV Entitic volume (RBC) 82.0 fL Normal 80.0-100.0 [facility] [place] Comment on above: Performed By: #### C BCDIF, PT, PTT, CMP #### [facility] [address] [place], [place] [phone] Platelet mean volume Entitic volume (Bld) 10.1 fL Normal 9.0-12.7 [facility] Comment on above: Performed By: #### C BCDIF, PT, PTT, CMP #### [facility] [address] [place], [place] [id number] Platelets #/vol (Bld) 227 10*3/uL Normal 150-400 [facility] Comment on above: Performed By: #### C BCDIF, PT, PTT, CMP #### [facility] [address] [facility] [phone] RBC #/vol (Bld) 5.39 10*6/uL High 3.90-5.20 [facility] [place] Comment on above: Performed By: #### C BCDIF, PT, PTT, CMP #### [facility] [address] [phone] WBC #/vol (Bld) 9.07 10*3/uL Normal 3.70-11.00 [facility] [place] Comment on above: Performed By: #### C BCDIF, PT, PTT, CMP #### [facility] [address] [phone] CNCOon 12-04-2017 CNCO Letter Text December 04, 2017 Trenton Jackson [address] [facility] [address] Dear Ms. Jackson, The nurses and staff of [facility] hope this letter finds you feeling well and progressing in your recovery. Our staff would like to thank you for trusting and choosing us for your health care needs. It was an honor for us to provide your nursing care. We know that placing our Patients First and maintaining a culture of continuous improvement each and every day, are essential to the success of our organization. I hope your stay with us has been positive. We want to hear from you. If you have any comments, questions or concerns about your hospital stay, please feel free to contact me, Bety Alcaraz RN ([phone]) or email me at, [email or web address] Additionally, you will receive a survey in the mail asking you to rate the care you received while in the hospital. Please take the time to complete and send back the survey, as it is essential to our continued success. I personally review all the results and would appreciate your feedback. Thank you in advance for your participation and thank you for choosing the [facility] for your health needs. Sincerely, Nurse Deputy Court Clerk: Bety Alcaraz RN ([phone]) [facility] Unit: 3 [facility] CONSULT PROGon 12-04-2017 Protein mass conc HNO ID: [id number] Author: Jevon Sherman Service: Clinical Cardiology Author Type: Physician Type: Consult Progress Note Filed: 12/04/2017 2:55 PM Note Text: PROGRESS NOTE CARDIOLOGY SERVICE SERVICE DATE: 12/04/2017 SERVICE TIME: 2:26 PM Subjective INTERIM HISTORY: underwent LHC this AM showing severe prox LAD disease; she continues to have intermittent chest pain Objective PHYSICAL EXAM: Body mass index is 28.31 kg/m?. O2 Therapy: Nasal Cannula No Data Recorded Patient Vitals for the past 24 hrs: BP Temp Temp src Pulse Resp SpO2 12/04/17 1400 119/66 36 ?C (96.8 ?F) Temporal Art 71 16 100 % 12/04/17 1345 100/59 - - 66 16 100 % 12/04/17 1330 85/55 - - 70 16 100 % 12/04/17 1315 91/53 - - 69 16 100 % 12/04/17 1300 96/61 - - 78 16 99 % 12/04/17 1245 88/50 - - 68 16 100 % 12/04/17 1228 94/55 36.1 ?C (97 ?F) Temporal Art 70 16 99 % 12/04/17 0726 112/71 36.5 ?C (97.7 ?F) Oral 73 17 97 % 12/04/17 0417 108/69 36.3 ?C (97.3 ?F) Oral 66 18 95 % 12/03/17 2334 92/57 36.6 ?C (97.9 ?F) Oral 74 18 97 % 12/03/17 2221 124/72 - - 77 - 100 % 12/03/17 1932 101/58 36.9 ?C (98.4 ?F) Oral 72 16 100 % 12/03/17 1526 118/71 36.7 ?C (98.1 ?F) Oral 80 16 100 % Pleasant, comfortable, not in acute distress. Awake, alert, oriented times 3. Moves all extremities. SKIN: No rash or lumps. HEENT: Normocephalic, face symmetrical. NECK: Supple, no JVD, no carotid bruit, no thyromegaly. LUNGS: Clear to auscultation bilaterally. CARDIAC: PMI present, RRR, S1 and S2, no S3 or S4, no additional heart sounds or murmurs. ABDOMEN: Soft, nontender, bowel sounds present. EXTREMITIES: No edema. PULSES: Peripheral pulses present. MEDICATIONS: Current hospital medications: [AUG Hold due to Transfer] atorvastatin 80 mg tab(s) (LIPITOR) 80 mg ORAL AT BEDTIME [AUG Hold due to Transfer] lisinopril 5 mg tab(s) (ZESTRIL, PRINIVIL) 5 mg ORAL DAILY [AUG Hold due to Transfer] metoprolol succinate ER 25 mg tab(s) (TOPROL XL) 25 mg ORAL AT BEDTIME [AUG Hold due to Transfer] ALPRAZolam 0.5 mg tab(s) (XANAX) 0.5 mg ORAL TID PRN [AUG Hold due to Transfer] pantoprazole DR 40 mg tab(s) (PROTONIX) 40 mg ORAL BID AC (0600/1600) [AUG Hold due to Transfer] sucralfate 1 g tab(s) (CARAFATE) 1 g ORAL TID [AUG Hold due to Transfer] morphine 2 mg injection 2 mg INTRAVENOUS q 4 H PRN [AUG Hold due to Transfer] nitroglycerin sublingual 0.4 mg tab(s) (NITROQUICK) 0.4 mg SUBLINGUAL q 5 MIN PRN [AUG Hold due to Transfer] dicyclomine 20 mg tab(s) (BENTYL) 20 mg ORAL q 6 H [AUG Hold due to Transfer] insulin glargine 40 Units injection (long acting) (LANTUS) 40 Units SUBCUTANEOUS BID [AUG Hold due to Transfer] sertraline 25 mg tab(s) (ZOLOFT) 25 mg ORAL DAILY [AUG Hold due to Transfer] albuterol 2.5 mg /3 mL (0.083 %) 2.5 mg (PROVENTIL) 2.5 mg INHALATION q 4 H PRN [AUG Hold due to Transfer] promethazine 12.5 mg tab(s) (PHENERGAN) 12.5 mg ORAL q 6 H PRN [AUG Hold due to Transfer] aspirin, enteric coated 81 mg tab(s) (ASPIRIN, ENTERIC COATED) 81 mg ORAL DAILY [AUG Hold due to Transfer] nitroglycerin sublingual 0.4 mg tab(s) (NITROQUICK) 0.4 mg SUBLINGUAL q 5 MIN PRN [AUG Hold due to Transfer] dextrose 40 % 15 g 15 g ORAL PRN [AUG Hold due to Transfer] glucagon 1 mg injection (GLUCAGEN) 1 mg INTRAMUSCULAR PRN [MAR Hold due to Transfer] dextrose 50% in water 25 mL syringe 12.5 g INTRAVENOUS PRN [MAR Hold due to Transfer] insulin lispro injection (rapid acting) (HumaLOG) SUBCUTANEOUS w MEALS [MAR Hold due to Transfer] insulin lispro injection (rapid acting) (HumaLOG) SUBCUTANEOUS AT BEDTIME DATA: Diagnostic tests reviewed for today's visit: Most recent labs Most recent imaging Most recent EKG Past 72 Hour Labs: Recent Labs 12/04/17 0610 12/02/17 0724 CRP -- -- 0.2 WBC 9.07 < > 12.44* RBC 5.39* < > 6.13* HB 14.8 < > 16.9* HCT 44.2 < > 48.7* MCV 82.0 < > 79.4* MCH 27.5 < > 27.6 MCHC 33.5 < > 34.7 RDWCV 13.1 < > 13.4 PLT 227 < > 215 MPV 10.1 < > 10.7 GLUC 88 < > 185* BUN 12 < > 8 CREAT 0.66 < > 0.61 NA 140 < > 135* K 4.1 < > 4.8 CHLOR 101 < > 99 CO2 29 < > 23 TPROT 5.9* < > 6.2* ALB 3.3* < > 3.2* CA 8.7 < > 9.2 ALKPHOS 77 < > 92 TBILI 0.4 < > 0.7 AST 15 < > 23 ALT 13 < > 14 MG 1.8 < > 1.9 < > = values in this interval not displayed. Last Lab Drawn: TSH 0.83 04/07/2015 Triglyceride 179 12/01/2017 HDL Cholesterol 31 12/01/2017 LDL 110 12/01/2017 Cholesterol, Total 177 12/01/2017 Assessment/Plan 1. Chest pain- this is likely anginal chest pain, CCS class IV; she has had negative troponin levels 2. Chronic systolic heart failure with LAD territory wall motion abnormality 3. Abnormal stress test suggesting LAD territory infarction 4. CAD with severe diffuse LAD disease 4. DM 5. Active smoker 6. HTN 7. Hx of pericardial cyst seen on CT scan 01/2017 ? Recommend: - she needs to be given consideration for revascularization of her LAD- she may have some viability of the anterior wall, given that the LAD is patent and she has anginal chest pain - transfer to [facility] for viability study with MRI or PET, and consider CABG with BRUCE-LAD if there is evidence of viability - continue aspirin and statin - continue ACEI - continue metoprolol - smoking cessation ? SIGNATURE: Jevon Sherman MD PATIENT NAME: Trenton Jackson DATE: December 04, 2017 TIME: 2:26 PM PAGER/CONTACT #: Normal [facility] Comp Metabolic Panelon 12-04 Albumin mass conc 3.3 g/dL Low 3.9-4.9 [facility] Comment on above: Performed By: #### C BCDIF, PT, PTT, CMP #### [facility] Laboratory [address] [place] [address] ALP enzyme act/vol 77 U/L Normal 32-117 [facility] Comment on above: Performed By: #### C BCDIF, PT, PTT, CMP #### [facility] Laboratory [address] [place] [address] ALT enzyme act/vol 13 U/L Normal 7-38 [facility] Comment on above: Performed By: #### C BCDIF, PT, PTT, CMP #### [facility] Laboratory [address] [place] [address] Anion gap molar conc 10 mmol/L Normal 9-18 [facility] Comment on above: Performed By: #### C BCDIF, PT, PTT, CMP #### [facility] Laboratory [address] [place] [address] AST enzyme act/vol 15 U/L Normal 13-35 [facility] Comment on above: Performed By: #### C BCDIF, PT, PTT, CMP #### [facility] Laboratory [address] [place] [address] Bilirubin mass conc 0.4 mg/dL Normal 0.2-1.3 [facility] Comment on above: Performed By: #### C BCDIF, PT, PTT, CMP #### [facility] Laboratory [address] [place] [address] Calcium mass conc 8.7 mg/dL Normal 8.5-10.2 [facility] Comment on above: Performed By: #### C BCDIF, PT, PTT, CMP #### [facility] Laboratory [address] [place] [address] Chloride molar conc 101 mmol/L Normal 97-105 [facility] Comment on above: Performed By: #### C BCDIF, PT, PTT, CMP #### [facility] Laboratory [address] CO2 molar conc 29 mmol/L Normal 22-30 [facility] Comment on above: Performed By: #### C BCDIF, PT, PTT, CMP #### [facility] Laboratory [address] [place] [address] Creatinine mass conc 0.66 mg/dL Normal 0.58-0.96 [facility] Comment on above: Performed By: #### C BCDIF, PT, PTT, CMP #### [facility] Laboratory [address] [address] eGFR- Amer. >60 Normal [facility] Comment on above: Performed By: #### C BCDIF, PT, PTT, CMP #### [facility] Laboratory [address] [place] [address] GFR/1.73 sq M predicted among non-blacks MDRD vol rate/area (S/P/Bld) mL/min/{1.73_m2} Normal [facility] Comment on above: Result Comment: eGFR (Estimated GFR) Units of measure: mL/min/1.73 meters squared eGFR is derived from the reexpressed MDRD Study equation using the following parameters: serum creatinine, age, gender and race. The creatinine assay has been calibrated to be traceable to IDMS. An eGFR <60 mL/min/1.73m2 for >3 months is consistent with chronic kidney disease. Refer to KDOQI guidelines for clinical interpretation. In patients with unstable renal function, e.g. those with acute kidney injury, the eGFR may not accurately reflect actual GFR. Performed By: #### C BCDIF, PT, PTT, CMP #### [facility] Laboratory [address] [place] [address] Glucose mass conc 88 mg/dL Normal 74-99 [facility] Comment on above: Result Comment: The [place] [employer] (ADA) provides guidance for cutoff values for fasting glucose and random glucose. The ADA defines fasting as no caloric intake for at least 8 hours. Fasting plasma glucose results between 100 to 125 mg/dL indicate increased risk for diabetes (prediabetes). Fasting plasma glucose results greater than or equal to 126 mg/dL meet the criteria for diagnosis of diabetes. In the absence of unequivocal hyperglycemia, results should be confirmed by repeat testing. In a patient with classic symptoms of hyperglycemia or hyperglycemic crisis, random plasma glucose results greater than or equal to 200 mg/dL meet the criteria for diagnosis of diabetes. Reference: Standards of Medical Care in Diabetes 2016, [place] [employer]. Diabetes Care. 2016.39(Suppl 1). Performed By: #### C BCDIF, PT, PTT, CMP #### [facility] Laboratory [address] [place] [address] Potassium molar conc 4.1 mmol/L Normal 3.7-5.1 [facility] Comment on above: Performed By: #### C BCDIF, PT, PTT, CMP #### [facility] Laboratory [address] [place] [address] Protein mass conc 5.9 g/dL Low 6.3-8.0 [facility] Comment on above: Performed By: #### C BCDIF, PT, PTT, CMP #### [facility] Laboratory [address] [place] [address] Sodium molar conc 140 mmol/L Normal 136-144 [facility] Comment on above: Performed By: #### C BCDIF, PT, PTT, CMP #### [facility] Laboratory [address] [place] [address] Urea nitrogen mass conc 12 mg/dL Normal 7-21 [facility] Comment on above: Performed By: #### C BCDIF, PT, PTT, CMP #### [facility] Laboratory [address] [place] [address] Magnesiumon 12-04-2017 Magnesium mass conc 1.8 mg/dL Normal 1.7-2.3 [facility] Comment on above: Performed By: #### C BCDIF, PT, PTT, CMP #### [facility] Laboratory [address] [place] [address] NURSING PROGon 12-04-2017 Protein mass conc HNO ID: [id number] Author: Patricio (Rn) CHAYITO Tate Service: Nursing Author Type: Registered Nurse Type: Nursing Progress Note Filed: 12/04/2017 10:43 PM Note Text: Nursing Progress Note Patient Name: Trenton Jackson Patient Location: [id number] Daily Note: 1900: Assumed care of pt. Pt observed sleeping in bed. Call light within reach. 2100: Pt resting in bed. Still waiting for transfer. High anxiety due to transfer and medical procedures. Call light within reach. 2220: Transfer arrived. Pt crying and states her anxiety is high. Pt given medicine for anxiety per MAR to assist with transfer. This note was completed by: Patricio Tate RN [facility] Protein mass conc HNO ID: [id number] Author: Melissa AgudeloRn) CHAYITO Jeffries Service: Nursing Author Type: Registered Nurse Type: Nursing Progress Note Filed: 12/04/2017 3:11 PM Note Text: Nursing Progress Note Patient Name: Trenton Jackson Patient Location: [place] [facility] [facility] 1500 Final air removed from right radial site. No bleeding noted. Bandaid applied. Report called to Jazzmine STRATTON on 3S. Pt transferred to floor on bed accomp by staff in stable cond. This note was completed by: Melissa Jeffries RN [facility] Protein mass conc HNO ID: [id number] Author: Brett AgudeloRn) CHAYITO Castorena Service: Nursing Author Type: Registered Nurse Type: Nursing Progress Note Filed: 12/04/2017 2:18 PM Note Text: Pt eating and drinking denies any complaints at this time. @1417 Report to Melissa STRATTON. [facility] Protein mass conc HNO ID: [id number] Author: Jazzmine Solano) CHAYITO Galvan Service: Nursing Author Type: Registered Nurse Type: Nursing Progress Note Filed: 12/04/2017 6:40 PM Note Text: Nursing Progress Note Patient Name: Trenton Jackson [place] [facility] [facility] Daily Note: 0730: Assumed care of pt. Pt resting in bed at this time. VSS. Pt sleeping. Telemetry SR. 0930: Pt noted to be extremely anxious at this time and tearful. Pt asking for anxiety medication. Medication given. Pt not complaining of any pain at this time. No other needs. Telemetry SR. 1130: Pt off unit 1330: Pt off unit 1530: pt arrived to floor in stable condition. Pt states she has a headache and she has some midsternal pain. Pt denies any other needs, Telemetry replaced. 1730: Pt resting in bed at this time with family at bedside. Pt states he has consistant medsternal chest pain 1827: Call placed to J63 CHAYITO Montes to give report . All questions answered. Pt aware of transfer time. Telemetry SR. This note was completed by: Jazzmine Galvan RN Normal [facility] PROCEDUREon 12-04-2017 Protein mass conc HNO ID: [id number] Author: Jevon Sherman Service: Clinical Cardiology Author Type: Physician Type: Procedures Filed: 12/10/2017 1:25 AM Note Text: [facility]- Cardiac Catheterization TRENTON JACKSON : 1970 AGE: 47 SEX: F ACCTNUM: [id number] HOSP [facility]: [facility] LOCATION: [id number] ATTENDING PHYSICIAN: DEX HANDY SURGEON: Jevon Sherman M.D. DATE: 12/04/2017 OPERATION: Left heart catheterization. INDICATIONS: Clinical History: The patient is a 47-year-old woman, who was admitted to the hospital with chest pain, but had negative troponins. Her echocardiogram showed an ejection fraction of 30% with an LAD territory wall motion abnormality, and nuclear imaging yesterday during stress testing showed a fixed anterior perfusion defect. She now presents for coronary angiography to define her coronary anatomy. Risks, benefits, and alternatives were discussed with the patient. She expressed understanding and agreed to proceed. OPERATIVE PROCEDURE: The patient was brought to the r&d lab technician, and she had mild chest pain at the beginning of the case. She was in sinus rhythm. We elected to use the right radial artery for arterial access. A small amount of 2% lidocaine was used for local anesthesia. She did receive intravenous fentanyl and Versed for moderate sedation after a time-out was performed. We placed a micropuncture sheath, and this was upsized to a 5-Uzbek short sheath. We then advanced a Knox catheter over a Wholey wire to the ascending aorta and cannulated the left main coronary artery and performed the angiograms. This catheter was exchanged over a wire for a Nataliia right catheter, and we performed the angiograms of the right coronary artery. This catheter was exchanged over a wire for a pigtail catheter, which was advanced to the left ventricle. Left ventricular pressure was measured and recorded, and the catheter was then withdrawn across the aortic valve under continuous pressure monitoring to measure the transvalvular gradient. The catheter was then withdrawn, and the sheath was removed, and a Vasc band was used for hemostasis. The patient was transferred to the recovery room in stable condition. There were no immediate complications. Of note, the patient did have a slight increase in chest pain to 5/10 that she rated after injections of contrast dye to perform angiography. Moderate Sedation provider by Cardiology Interventional Nursing Staff. Moderate sedation consisting of continuous ECG, pulse oxymetry and cardiopulmonary monitoring was performed by the Cardiology Nurse, overseen by Jevon Sherman MD, for my intra service time of 0 hr 53 min. Sedative Medications: Drug: Versed Dose: 1 mg Route: IV Drug: Fentanyl Dose: 50 mcg Route: IV FINDINGS: 1. The LEFT MAIN coronary artery is normal, it bifurcates into the LAD and left circumflex coronary arteries and has no disease. 2. The LEFT ANTERIOR DESCENDING extends and stops at just short of the apex of the left ventricle. In the proximal portion, there is severe diffuse disease of the very long segment extending through the midportion of the LAD. The distal portion of the LAD is a small caliber vessel, which fills very slowly and also has another focal stenosis sutures approximately 80%. 3. The LEFT CIRCUMFLEX coronary artery is nondominant to the posterior circulation and has a medium-sized marginal branch and has no disease. 4. The RIGHT CORONARY ARTERY is dominant to the posterior circulation with a medium-sized PDA and has no disease. 5. Left ventricular end-diastolic pressure was normal approximately 15-16 mmHg. 6. There was no gradient on catheter pullback across the aortic valve. CONCLUSIONS: 1. Single-vessel coronary artery disease with a long segment of severe diffuse narrowing in the proximal and midportion of the LAD. Another stenosis in the distal portion. 2. Normal right and circumflex coronary arteries. 3. Normal left heart filling pressures. 4. No evidence of aortic stenosis. 5. The patient will be transferred to [facility] for assessment of myocardial viability and consideration of revascularization of the LAD possibly with bypass grafting. Jevon Sherman M.D. Cardiovascular Medicine [id number] [facility] PROGRESSon 12-04-2017 Protein mass conc HNO ID: [id number] Author: Jevon Sherman Service: Clinical Cardiology Author Type: Physician Type: Progress Notes Filed: 12/04/2017 11:15 AM Note Text: CARDIAC CATHETERIZATION RISK ASSESSMENT PATIENT NAME: Trenton Jackson SERVICE DATE: 12/04/2017 SERVICE TIME: 11:14 AM No Critical left main stenosis or equivalent ischemia suggested by an early positive ischemic response on exercise testing i.e. Abnormal horizontal or down sloping ST depression with all of the following: -onset at a heart rate of < 120 (if not on beta blockers) or < 6.5 METS -Magnitude > 2.0 mm of depression -Post exercise duration > 6 minutes and depression in multiple leads No Abnormal systolic blood pressure response during progressive exercise with a sustained decrease of >10 mm HG or flat blood pressure response at less than 130 mm HG, with or without associated EKG evidence of ischemia. No Unstable angina pectoris that cannot be stabilized medically before catheterization or recurrent angina at rest refractory to maximal medical treatment. No Unstable or acute myocardial infarction i.e. -Acute on-going q-wave myocardial infarction with persistent pain or unstable hemodynamics, except when appropriate emergency catheter-based intervention is required. -Acute q-wave or non q-wave myocardial infarction with persistent or recurrent angina refractory to medical therapy when emergency therapeutic catheterization is considered imminent. No Critical aortic stenosis defined by current echo-Doppler criteria (i.e. mean gradient greater than fifty millimeters of mercury, valve area less than seventy-five hundredths (.75) square centimeters, or a mean gradient less than fifty millimeters of mercury in the setting of left ventricular dysfunction). No Uncompensated congestive heart failure refractory to medical management. No Reverse intra-cardiac shunts (i.e. Eisenmenger syndrome). No Known severe pulmonary hypertension. No Uncontrolled ventricular arrhythmias. No Severe valvular dysfunction, especially in the setting of depressed left ventricular performance. No Require percutaneous coronary interventions, including percutaneous transluminal coronary angioplasty (PTCA) or another non-surgical revascularization procedure. These procedures shall not be performed without on-site open heart surgical standby. No Requires other non-therapeutic, except right heart ablation, OR high-risk procedures such as transseptal catheterization or direct ventricular puncture. No Patients less than 22 years of age. SIGNATURE: Jevon Sherman MD DATE: December 04, 2017 TIME: 11:14 AM The following are the [facility] Criteria for High Risk Catheterization: Patients with high-risk conditions listed above may require emergency catheter-based therapeutic interventions or open heart surgery. Hence, they shall undergo cardiac catheterization only in a catheterization laboratory that has open heart surgical support available on-site, (i.e., accessible from the catheterization laboratory or by [facility]). [facility] CASE MANAGEMon 12-03-2017 CASE MANAGEM HNO ID: [id number] Author: Iqra Solano) CHAYITO Webster Service: Case Management Author Type: Registered Nurse Type: Care Mgt Progress Note Filed: 12/03/2017 11:44 AM Note Text: CARE MANAGEMENT PROGRESS NOTE SERVICE DATE: 12/03/2017 SERVICE TIME: 11:44 AM LOS: 0 days Needs Prior to Discharge: To Be Determined Attempted to meet patient at bedside, patient off floor for stress test. CM will return as time allows. SIGNATURE: Iqra Webster RN PATIENT NAME: Trenton Jackson DATE: December 03, 2017 TIME: 11:44 AM PAGER/CONTACT #: [phone] [facility] CBCon 12-03-2017 Erythrocyte distribution width Ratio (RBC) 13.2 % Normal 11.5-15.0 [facility] Comment on above: Performed By: #### C BCDIF, PT, PTT, CMP #### [facility] Laboratory [address] [place] [address] Hematocrit Volume Fraction (Bld) 46.0 % Normal 36.0-46.0 [facility] Comment on above: Performed By: #### C BCDIF, PT, PTT, CMP #### [facility] Laboratory [address] [address] Hemoglobin mass conc (Bld) 15.3 g/dL Normal 11.5-15.5 [facility] Comment on above: Performed By: #### C BCDIF, PT, PTT, CMP #### [facility] Laboratory [address] [place] [address] MCH Entitic mass (RBC) 27.4 pG Normal 26.0-34.0 [facility] Comment on above: Performed By: #### C BCDIF, PT, PTT, CMP #### [facility] Laboratory [address] [place] [address] MCHC mass conc (RBC) 33.3 g/dL Normal 30.5-36.0 [facility] Comment on above: Performed By: #### C BCDIF, PT, PTT, CMP #### [facility] Laboratory [address] [place] [address] MCV Entitic volume (RBC) 82.4 fL Normal 80.0-100.0 [facility] Comment on above: Performed By: #### C BCDIF, PT, PTT, CMP #### [facility] Laboratory [address] [place] [address] Platelet mean volume Entitic volume (Bld) 10.1 fL Normal 9.0-12.7 [facility] Comment on above: Performed By: #### C BCDIF, PT, PTT, CMP #### [facility] Laboratory [address] [place] [address] Platelets #/vol (Bld) 224 10*3/uL Normal 150-400 [facility] Comment on above: Performed By: #### C BCDIF, PT, PTT, CMP #### [facility] Laboratory [address] [place] [address] RBC #/vol (Bld) 5.58 10*6/uL High 3.90-5.20 [facility] Comment on above: Performed By: #### C BCDIF, PT, PTT, CMP #### [facility] Laboratory [address] [phone] WBC #/vol (Bld) 9.13 10*3/uL Normal 3.70-11.00 [facility] Comment on above: Performed By: #### C BCDIF, PT, PTT, CMP #### [facility] Laboratory [address] [phone] CONSULT PROGon 12-03-2017 Protein mass conc HNO ID: [id number] Author: Jevon Sherman Service: Clinical Cardiology Author Type: Physician Type: Consult Progress Note Filed: 12/03/2017 5:30 PM Note Text: PROGRESS NOTE CARDIOLOGY SERVICE SERVICE DATE: 12/03/2017 SERVICE TIME: 5:25 PM Subjective INTERIM HISTORY: she had chest pain while on the treadmill today, was unable to finish the stress test; she was changed to a Lexiscan nuclear stress Objective PHYSICAL EXAM: Body mass index is 28.31 kg/m?. O2 Therapy: Room Air No Data Recorded Patient Vitals for the past 24 hrs: BP Temp Temp src Pulse Resp SpO2 12/03/17 1526 118/71 36.7 ?C (98.1 ?F) Oral 80 16 100 % 12/03/17 0744 90/58 36.5 ?C (97.7 ?F) Oral 68 19 100 % 12/03/17 0316 106/72 36.6 ?C (97.9 ?F) Oral 61 16 97 % 12/02/17 2342 (!) 80/40 36.4 ?C (97.5 ?F) Oral 68 20 95 % 12/02/17 1943 91/52 36.4 ?C (97.5 ?F) Oral 74 14 99 % Pleasant, comfortable, not in acute distress. Awake, alert, oriented times 3. Moves all extremities. SKIN: No rash or lumps. HEENT: Normocephalic, face symmetrical. NECK: Supple, no JVD, no carotid bruit, no thyromegaly. LUNGS: Clear to auscultation bilaterally. CARDIAC: PMI present, RRR, S1 and S2, no S3 or S4, no additional heart sounds or murmurs. ABDOMEN: Soft, nontender, bowel sounds present. EXTREMITIES: No edema. PULSES: Peripheral pulses present. MEDICATIONS: Current hospital medications: atorvastatin 80 mg tab(s) (LIPITOR) 80 mg ORAL AT BEDTIME [START ON 12/04/2017] lisinopril 5 mg tab(s) (ZESTRIL, PRINIVIL) 5 mg ORAL DAILY metoprolol succinate ER 25 mg tab(s) (TOPROL XL) 25 mg ORAL AT BEDTIME pantoprazole DR 40 mg tab(s) (PROTONIX) 40 mg ORAL BID AC (0600/1600) sucralfate 1 g tab(s) (CARAFATE) 1 g ORAL TID morphine 2 mg injection 2 mg INTRAVENOUS q 4 H PRN nitroglycerin sublingual 0.4 mg tab(s) (NITROQUICK) 0.4 mg SUBLINGUAL q 5 MIN PRN dicyclomine 20 mg tab(s) (BENTYL) 20 mg ORAL q 6 H insulin glargine 40 Units injection (long acting) (LANTUS) 40 Units SUBCUTANEOUS BID sertraline 25 mg tab(s) (ZOLOFT) 25 mg ORAL DAILY albuterol 2.5 mg /3 mL (0.083 %) 2.5 mg (PROVENTIL) 2.5 mg INHALATION q 4 H PRN promethazine 12.5 mg tab(s) (PHENERGAN) 12.5 mg ORAL q 6 H PRN aspirin, enteric coated 81 mg tab(s) (ASPIRIN, ENTERIC COATED) 81 mg ORAL DAILY nitroglycerin sublingual 0.4 mg tab(s) (NITROQUICK) 0.4 mg SUBLINGUAL q 5 MIN PRN dextrose 40 % 15 g 15 g ORAL PRN glucagon 1 mg injection (GLUCAGEN) 1 mg INTRAMUSCULAR PRN dextrose 50% in water 25 mL syringe 12.5 g INTRAVENOUS PRN insulin lispro injection (rapid acting) (HumaLOG) SUBCUTANEOUS w MEALS insulin lispro injection (rapid acting) (HumaLOG) SUBCUTANEOUS AT BEDTIME ALPRAZolam 0.5 mg tab(s) (XANAX) 0.5 mg ORAL BID PRN DATA: Diagnostic tests reviewed for today's visit: Most recent labs Most recent imaging Most recent EKG Echo today 12/03/17 CONCLUSIONS: - Technically difficult exam due to body habitus. - Exam indication: Chest Pain - There is a resting wall motion abnormality in the territory of the LAD. - The left ventricle is normal in size. There is no left ventricular hypertrophy. Left ventricular systolic function is moderately decreased. EF = 36 ? 5% (2D biplane) Definity contrast used for endocardial border detection. Grade I left ventricular diastolic dysfunction. - The right ventricle is normal in size. Right ventricular systolic function is normal. - There are no significant valvular abnormalities. - Exam was compared with the prior OUTSIDE echocardiographic exam performed on 03/10/2017. There is no significant change. ? Nuclear stress test 12/03/2017 CONCLUSIONS: ?1. SPECT Perfusion Study: Abnormal. ?2. There is no scintigraphic evidence for inducible ischemia. ?3. There is a large (>20%) fixed perfusion defect in the LAD territory. ?4. Fair functional capacity for age and gender. ?5. Left ventricle is mildly dilated. The left ventricle systolic function is severely decreased. ?6. Right ventricle is normal in size. The right ventricle systolic function is normal. ?7. This is a high risk scan. ?1 ?LVEF % 21 Past 72 Hour Labs: Recent Labs 12/03/17 0605 12/02/17 0724 12/01/17 0755 11/30/17 1845 CK -- -- -- -- -- 41* CRP -- 0.2 -- -- -- -- TROPT -- -- -- <0.010 < > -- WBC 9.13 12.44* -- -- -- 9.02 RBC 5.58* 6.13* -- -- -- 5.82* HB 15.3 16.9* -- -- -- 16.2* HCT 46.0 48.7* -- -- -- 46.8* MCV 82.4 79.4* -- -- -- 80.4 MCH 27.4 27.6 -- -- -- 27.8 MCHC 33.3 34.7 -- -- -- 34.6 RDWCV 13.2 13.4 -- -- -- 13.3 PLT 224 215 -- -- -- 247 MPV 10.1 10.7 -- -- -- 9.9 NEUTP -- -- -- -- -- 60.4 LYMPHP -- -- -- -- -- 31.4 MONOP -- -- -- -- -- 6.2 EODINP -- -- -- -- -- 1.4 BASOP -- -- -- -- -- 0.6 ABSNEUT -- -- -- -- -- 5.45 ABSMONO -- -- -- -- -- 0.56 ABSEOSIN -- -- -- -- -- 0.13 ABSBASO -- -- -- -- -- 0.05 GLUC 76 185* -- -- -- 260* BUN 11 8 -- -- -- 5* CREAT 0.70 0.61 -- -- -- 0.61 NA 139 135* -- -- -- 137 K 4.3 4.8 -- -- -- 4.1 CHLOR 99 99 -- -- -- 102 CO2 30 23 -- -- -- 23 TPROT 6.0* 6.2* -- -- -- 6.5 ALB 3.3* 3.2* -- -- -- 3.5* CA 9.0 9.2 -- -- -- 8.5 ALKPHOS 83 92 -- -- -- 97 TBILI 0.5 0.7 -- -- -- 0.7 AST 15 23 -- -- -- 26 ALT 13 14 -- -- -- 17 PTSEC -- -- -- -- -- 10.2 APTT -- -- -- -- -- 26.7 INR -- -- -- -- -- 1.0 MG 1.8 1.9 < > -- -- -- < > = values in this interval not displayed. Last Lab Drawn: TSH 0.83 04/07/2015 Triglyceride 179 12/01/2017 HDL Cholesterol 31 12/01/2017 LDL 110 12/01/2017 Cholesterol, Total 177 12/01/2017 Assessment/Plan 1. Chest pain- this sounds atypical for angina, but she does have DM, is a smoker, and has a highly abnormal echo, so this could be anginal; it also intensified on the treadmill today 2. Chronic systolic heart failure with LAD territory wall motion abnormality 3. Abnormal stress test suggesting LAD territory infarction 4. DM 5. Active smoker 6. HTN 7. Hx of pericardial cyst seen on CT scan 01/2017 ? Recommend: - continue aspirin and statin - increase atorvastatin to 80 mg - continue ACEI - add metoprolol - LHC tomorrow - NPO after midnight - smoking cessation ? Will continue to follow SIGNATURE: Jevon Sherman MD PATIENT NAME: Trenton Jackson DATE: December 03, 2017 TIME: 5:25 PM PAGER/CONTACT #: Normal [facility] Comp Metabolic Panelon 12-03 Albumin mass conc 3.3 g/dL Low 3.9-4.9 [facility] Comment on above: Performed By: #### C BCDIF, PT, PTT, CMP #### [facility] Laboratory [address] [place] [address] ALP enzyme act/vol 83 U/L Normal 32-117 [facility] Comment on above: Performed By: #### C BCDIF, PT, PTT, CMP #### [facility] Laboratory [address] [place] [address] ALT enzyme act/vol 13 U/L Normal 7-38 [facility] Comment on above: Performed By: #### C BCDIF, PT, PTT, CMP #### [facility] Laboratory [address] [place] [address] Anion gap molar conc 10 mmol/L Normal 9-18 [facility] Comment on above: Performed By: #### C BCDIF, PT, PTT, CMP #### [facility] [address] [place] [address] AST enzyme act/vol 15 U/L Normal 13-35 [facility] Comment on above: Performed By: #### C BCDIF, PT, PTT, CMP #### [facility] Laboratory [address] [place] [address] Bilirubin mass conc 0.5 mg/dL Normal 0.2-1.3 [facility] Comment on above: Performed By: #### C BCDIF, PT, PTT, CMP #### [facility] Laboratory [address] [place] [address] Calcium mass conc 9.0 mg/dL Normal 8.5-10.2 [facility] Comment on above: Performed By: #### C BCDIF, PT, PTT, CMP #### [facility] [address] [facility] [phone] Chloride molar conc 99 mmol/L Normal 97-105 [facility] Comment on above: Performed By: #### C BCDIF, PT, PTT, CMP #### [facility] [address] [facility] [phone] CO2 molar conc 30 mmol/L Normal 22-30 [facility] Comment on above: Performed By: #### C BCDIF, PT, PTT, CMP #### [facility] [address] [facility] [phone] Creatinine mass conc 0.70 mg/dL Normal 0.58-0.96 [facility] Comment on above: Performed By: #### C BCDIF, PT, PTT, CMP #### [facility] [address] [phone] eGFR- Amer. >60 Normal [facility] Comment on above: Performed By: #### C BCDIF, PT, PTT, CMP #### [facility] [address] [phone] GFR/1.73 sq M predicted among non-blacks MDRD vol rate/area (S/P/Bld) mL/min/{1.73_m2} Normal [facility] Comment on above: Result Comment: eGFR (Estimated GFR) Units of measure: mL/min/1.73 meters squared eGFR is derived from the reexpressed MDRD Study equation using the following parameters: serum creatinine, age, gender and race. The creatinine assay has been calibrated to be traceable to IDMS. An eGFR <60 mL/min/1.73m2 for >3 months is consistent with chronic kidney disease. Refer to KDOQI guidelines for clinical interpretation. In patients with unstable renal function, e.g. those with acute kidney injury, the eGFR may not accurately reflect actual GFR. Performed By: #### C BCDIF, PT, PTT, CMP #### [facility] [address] [facility] [phone] Glucose mass conc 76 mg/dL Normal 74-99 [facility] Comment on above: Result Comment: The [place] Diabetes [employer] (ADA) provides guidance for cutoff values for fasting glucose and random glucose. The ADA defines fasting as no caloric intake for at least 8 hours. Fasting plasma glucose results between 100 to 125 mg/dL indicate increased risk for diabetes (prediabetes). Fasting plasma glucose results greater than or equal to 126 mg/dL meet the criteria for diagnosis of diabetes. In the absence of unequivocal hyperglycemia, results should be confirmed by repeat testing. In a patient with classic symptoms of hyperglycemia or hyperglycemic crisis, random plasma glucose results greater than or equal to 200 mg/dL meet the criteria for diagnosis of diabetes. Reference: Standards of Medical Care in Diabetes 2016, [place] [employer]. Diabetes Care. 2016.39(Suppl 1). Performed By: #### C BCDIF, PT, PTT, CMP #### [facility] Laboratory [address] [place] [address] Potassium molar conc 4.3 mmol/L Normal 3.7-5.1 [facility] Comment on above: Performed By: #### C BCDIF, PT, PTT, CMP #### [facility] Laboratory [address] [place] [address] Protein mass conc 6.0 g/dL Low 6.3-8.0 [facility] Comment on above: Performed By: #### C BCDIF, PT, PTT, CMP #### [facility] Laboratory [address] [place] [address] Sodium molar conc 139 mmol/L Normal 136-144 [facility] Comment on above: Performed By: #### C BCDIF, PT, PTT, CMP #### [facility] Laboratory [address] [place] [address] Urea nitrogen mass conc 11 mg/dL Normal 7-21 [facility] Comment on above: Performed By: #### C BCDIF, PT, PTT, CMP #### [facility] Laboratory [address] [place], [place] [phone] Magnesiumon 12-03-2017 Magnesium mass conc 1.8 mg/dL Normal 1.7-2.3 [facility] Comment on above: Performed By: #### C BCDIF, PT, PTT, CMP #### [facility] Laboratory [address] [place], [place] [phone] NM CARDIAC PERF STRESS/EXERC ISEon 12-03-2017 NM CARDIAC PERF STRESS/EXERCISE * * *Final Report* * * DATE OF EXAM: Dec 03 2017 4:32PM SERGO 0004 - NM CARDIAC PERF STRESS/EXERCISE / PROCEDURE REASON: Chest pain, cardiac etiology suspected * * * * Physician Interpretation * * * * PATIENT: Name: TRENTON JACKSON Age: 47 years Gender: F CONCLUSIONS: 1. SPECT Perfusion Study: Abnormal. 2. There is no scintigraphic evidence for inducible ischemia. 3. There is a large (>20%) fixed perfusion defect in the LAD territory. 4. Fair functional capacity for age and gender. 5. Left ventricle is mildly dilated. The left ventricle systolic function is severely decreased. 6. Right ventricle is normal in size. The right ventricle systolic function is normal. 7. This is a high risk scan. 1 LVEF % 21 Prior Study Comparison No prior nuclear cardiology exam available for comparison. Nuclear Med Report:1-Day Tc-Tetrofosmin Gated SPECT Myocardial Perfusion with Regadenoson Stress: Myocardial perfusion imaging was performed at rest 30 minutes following the IV injection of Tc-99m tetrofosmin. The patient received 0.4 mg of regadenoson, via rapid IV push, immediately followed by Tc-99m tetrofosmin IV. Gated post stress tomographic imaging was performed 30 to 60 minutes later. See administered doses below. [facility] Date of service: 12/03/2017 11:12:42 AM Indication: Assessment for suspected CAD, Abnormal Baseline ECG, Heart Failure, CP - ECG uniterpretable OR unable to exercise and Unable to Exercise. Interpreting physician: Jevon Sherman MD Patient History: History of hypertension, diabetes mellitus, dyslipidemia and smoker. Medications currently taking are statins, ASA, ACEI, insulin and anti-depressants. Height: 170.18 cm BSA: 1.96 m? Weight: 81.65 kg BMI: 28.2 kg/m? Imaging Protocol Limitation Reason G.I. uptake. Pt was ReScanned: Yes. Exam Type: Rest Stress Radiopharm: Tc-99m Tetrofosmin Tc-99m Tetrofosmin Dosage(mCi): 12.5 33.6 Atten Correction: not performed not performed Stress Agent: Regadenoson 0.4mg Supply provided from [facility] Resting Heart Rate: 73 bpm Resting Blood Press: 106/66 mmHg Image Quality The overall study imaging quality was deemed to be fair. The following technical issues were noted: G.I. uptake. FINDINGS: Left Ventricle Wall Motion: 1 - The mid and distal anterior wall, mid and distal anterior septum, apical inferior segment, and apex are akinetic. All remaining scored segments are normal. 2 - 1 1 LVEF: 21 % Perfusion Findings 1 - Summed Score=23 There is a absent perfusion defect in the apical septal segment, apical anterior segment, and apex. There is a severe perfusion defect in the mid anteroseptal segment, mid anterior segment, and apical inferior segment. There is a moderate perfusion defect in the apical lateral segment. All remaining scored segments show normal perfusion. 2 - Summed Score=23 There is a absent perfusion defect in the apical septal segment, apical anterior segment, and apex. There is a severe perfusion defect in the mid anteroseptal segment, mid anterior segment, and apical inferior segment. There is a moderate perfusion defect in the apical lateral segment. All remaining scored segments show normal perfusion. 1 2 Summed Score=23 Summed Score=23 LEFT VENTRICLE The left ventricle is mildly dilated. Left ventricular systolic function is severely decreased. Right Ventricle The right ventricle is normal in size. Right ventricle systolic function is normal. Stress Test Findings: There is no scintigraphic evidence for inducible ischemia. Patient complained of chest pain at rest. The stress test was terminated due to the following: End of Protocol. Peak HR 127 bpm. Exercise duration 3 min 13 sec. (73 % MPHR) (4.8 METS) Peak BP 140 mmHg/82 mmHg Patient experienced chest pain and shortness of breath during stress. Stress ECG normal sinus rhythm and normal ST segment response. Stress complications: none. Final Concrete Tile Machine Operator: JEREMIAS Transcribe Date/Time: Dec 03 2017 11:12A Dictated by : JEVON SHERMAN MD This examination was interpreted and the report reviewed and electronically signed by: JEVON SHERMAN MD on Dec 03 2017 5:11PM EST [id number] [facility] NUCLEAR STRESS LEXISCAN (CAR D)on 12-03-2017 NUCLEAR STRESS LEXISCAN (CARD) NAME : TRENTON JACKSON PID : [id number] : 1970 Gender : Female Race : ORD : [id number] Procedure Date : Dec 03 2017 12:15:58 Edit Date : Dec 17 2017 14:02:26 Conclusions:PLEASE REFER TO IMAGING SECTION IN [facility] FOR COMPLETE INTERPRETATION OF STRESS TEST AND MYOCARDIAL PERFUSION IMAGING Protocol Name : LEXISCAN Time In Exercise Phase : 00:06:00 Max. Systolic BP : 137 mmHg Max Diastolic BP : 70 mmHg Max Heart Rate : 118 BPM Max Predicted Heart Rate : 174 BPM Recovery ECG Response (OLD) : Reason For Termination : End of Protocol Test Reason : Chest Pain Location :[id number] Overread By : JEVON SHERMAN M.D. Edited By : Violet Mcnulty Referred By : , Acquired by : [facility] NUCLEAR STRESS TEST EXERCISE (CARD)on 12-03-2017 NUCLEAR STRESS TEST EXERCISE (CARD) NAME : TRENTON JACKSON PID : [id number] : 1970 Gender : Female Race : ORD : [id number] Procedure Date : Dec 03 2017 11:56:57 Edit Date : Dec 17 2017 14:02:19 Conclusions:PLEASE REFER TO IMAGING SECTION IN [facility] FOR COMPLETE INTERPRETATION OF STRESS TEST AND MYOCARDIAL PERFUSION IMAGING Protocol Name : CALE Time In Exercise Phase : 00:03:13 Max. Systolic BP : 148 mmHg Max Diastolic BP : 78 mmHg Max Heart Rate : 130 BPM Max Predicted Heart Rate : 174 BPM Recovery ECG Response (OLD) : Reason For Termination : Patient Unable to Walk on Treadmill Test Reason : Chest Pain Location :[id number] Overread By : JEVON SHERMAN M.D. Edited By : Violet Mcnulty Referred By : , Acquired by : [facility] NURSING PROGon 12-03-2017 Protein mass conc HNO ID: [id number] Author: Barb AgudeloRn) CHAYITO Ramey Service: (none) Author Type: Registered Nurse Type: Nursing Progress Note Filed: 12/03/2017 9:59 PM Note Text: Nursing Progress Note Patient Name: Trenton Jackson Patient Location: [id number]/[id number] Daily Note: 2155- Dr Nava updated on pt medication request and HS blood sugar. New orders received. This note was completed by: Barb Ramey RN [facility] Protein mass conc HNO ID: [id number] Author: Jazzmine (Rn) CHAYITO Galvan Service: Nursing Author Type: Registered Nurse Type: Nursing Progress Note Filed: 12/03/2017 6:59 PM Note Text: Nursing Progress Note Patient Name: Trenton Jackson Patient Location: [facility]/[id number]- Daily Note: 0700: Assumed care of pt. Pt called RN into room and noted to be extremely anxious and crying. RN gave medication. Telemetry SR. Pt states she always has this mid chest pain. 0900: Pt off floor to cardiology. Telemetry off at this time. Pt feels better after medication. 1100: pt off floor 1300: Pt off floor 1500: Pt arrived back to floor pt states she has a headache and she has chest pain and is nausea. RN took vitals and gave pain medication. No other needs at this time. 1600: pt off floor. 1700: Pt arrived back to floor. Telemetry replaced. No other needs at this time. Pt noted to be extremely anxious. This note was completed by: Jazzmine Galvan RN [facility] PROCEDUREon 12-03-2017 Protein mass conc HNO ID: [id number] Author: Jevon Sherman Service: Clinical Cardiology Author Type: Physician Type: Procedures Filed: 12/10/2017 1:16 AM Note Text: [facility]- Stress Test TRENTON JACKSON : 1970 AGE: 47 SEX: F ACCTNUM: [id number] HOSP [facility]: [facility] LOCATION: [id number] ATTENDING PHYSICIAN: Dex Fernandez M.D. DATE OF STUDY: 12/03/2017 EXERCISE PORTION OF A NUCLEAR STRESS TEST REASON FOR STRESS TEST: Chest pain, abnormal echocardiogram. TEST DESCRIPTION: The patient was brought to the stress lab. She had chest pain in the center of her chest at rest. Her heart rate was 73, resting blood pressure 106/66. She then proceeded to exercise on the Cale protocol. She only exercised for a total exercise time of 3 minutes and 13 seconds, who is unable to continue on the treadmill secondary to worsening chest pain. Review of the ECG tracings shows sinus rhythm at baseline and no ischemic changes at her peak heart rate of 127 beats per minute. The test was switched to a vasodilator stress test. Please see separate reporting for interpretation of that stress test and of nuclear imaging. Jevon Sherman M.D. Cardiovascular Medicine [id number] /[id number] [facility] PROGRESSon 12-03-2017 Protein mass conc HNO ID: [id number] Author: Dex Farooq) Lizz Service: Hospital Medicine Author Type: Physician Type: Progress Notes Filed: 12/03/2017 9:03 PM Note Text: HOSPITAL MEDICINE PROGRESS NOTE Name: Trenton Jackson SERVICE DATE: 12/03/2017 SERVICE TIME: 8:36 PM LOCATION / ROOM: [place] [id number] Hospital Medicine/Primary Attending: Dex Handy MD NIGHT COVERAGE BETWEEN 5.30P-7.30A Page [phone] ASSESSMENT AND PLAN Active Hospital Problems Diagnosis - Chest pain - Leucocytosis - Erythrocytosis - Hypotension - Cardiomyopathy (HCC) - Smoker - Dyslipidemia - Chest pain at rest - Type 2 diabetes mellitus with complication, with long-term current use of insulin (HCC) - Depression - Essential hypertension ??Chest pain ?Assessment AND?Plan: Persistent ,stable Chest pain is atypical in nature, more of musculoskeletal vs stress related. However,patient is a high risk patient. (HTN,HL,smoker,uncontroll ed diabetes) Heart score is 4, Had abnormal ECHO in mar 2017 which shows wall motion abnormality .EF?30 to 35%. Never Had stress test ,LHC or repeat echo- tests which ?Canot be done here ?On the ?weekend . States she was told she has a hx of pericardial effusion in the past but its too small and no further rx needed.CT scan 01/2017 shows pericardial cyst EKG, trops?x 3,?high sensitivity troponin's are negative, CXR unremarkable Continue telemetry PRN morphine. lidocaine patch not helping so d/c Hx of GERD.Try protonix,carafate to see if it helps Lipid panel abnormal while on zocor.,start lipitor ,d/c zocor started on coreg which I changed to metoprolol due to BP drop. .Continue ASA/ /continue SELENE/statin Check esr, crp,procal. Stress test Nuclear stress test shows high risk scan with large >20% fixed perfusion defect in the LAD area. Echo shows EF 36 % LVEF with grade I diastolic dysfunction. Patient might need to be transferred to [facility] for further work up - pending LV heart cath in am. ? Hypotension. Patient denies any symptoms - although laying in bed most times . Hypotension likely due to medication -coreg which I d/c and started her on lopressor which does not drop BP that fast. Like coreg. Parameters placed on BP and IVF N/S bolus given Continue to monitor . ? Essential hypertension Ok to continue BP meds but with parameters Continue to monitor ? ? Depression Anxiety, POA, yes ?Assessment AND?Plan: Continue zoloft Xanax PRN Out pt psych f/u ? Uncontrolled type 2 diabetes mellitus with complication, with long-term current use of insulin ?Assessment AND?Plan: HBAIC 12.6 on 08/06/17 continue lantus 40 units BID, start SSI Home dose can be resumed after stress test am,oral hypoglycemics can also be added am after stress test And dose adjusted if needed . Consider endo consult for discharge planning ? Dyslipidemia ?Assessment AND?Plan: Lipid panel shows uncontrolled nos -trig 179,HDL 31,LDL 110, T/C 177 Stopped zocor as not working and started patient on lipitor. She will need repeat lipid panel in 4 weeks or more. ? Cardiomyopathy with EF 30-35% Unclear if ischemic or non ischemic As per cardiology for echo and stress test - as above ? Leucocytosis/erythrocytos is Leucocytosis new. Erythrocytosis slightly worse . Patient denies any new symptoms She is a smoker Will Check esr,crp,procal Await repeat labs after she received IVF SUBJECTIVE INTERVAL HPI: Feels ok, but still chest pain. No fever, chills, cp nor palpitations. No events overnight MEDICATIONS: Reviewed Current Facility-Administered Medications: atorvastatin 80 mg tab(s) (LIPITOR) 80 mg ORAL AT BEDTIME Jevon Sherman [START ON 12/04/2017] lisinopril 5 mg tab(s) (ZESTRIL, PRINIVIL) 5 mg ORAL DAILY Jevon Sherman metoprolol succinate ER 25 mg tab(s) (TOPROL XL) 25 mg ORAL AT BEDTIME Jevon Sherman pantoprazole DR 40 mg tab(s) (PROTONIX) 40 mg ORAL BID AC (0600/1600) Lisa Neville Chukwuani 40 mg at 12/03/17 1523 sucralfate 1 g tab(s) (CARAFATE) 1 g ORAL TID Lisa Neville Chukwuani 1 g at 12/03/17 1523 morphine 2 mg injection 2 mg INTRAVENOUS q 4 H PRN Lisa Lozada Chukwuani 2 mg at 12/03/17 1545 nitroglycerin sublingual 0.4 mg tab(s) (NITROQUICK) 0.4 mg SUBLINGUAL q 5 MIN PRN Rafy H (Pa-C) Mao III 0.4 mg at 11/30/17 1912 dicyclomine 20 mg tab(s) (BENTYL) 20 mg ORAL q 6 H Fercho Dilma 20 mg at 12/03/17 1523 insulin glargine 40 Units injection (long acting) (LANTUS) 40 Units SUBCUTANEOUS BID Fercho Dilma 40 Units at 12/03/17 1523 sertraline 25 mg tab(s) (ZOLOFT) 25 mg ORAL DAILY Fercho Dilma 25 mg at 12/03/17 0853 albuterol 2.5 mg /3 mL (0.083 %) 2.5 mg (PROVENTIL) 2.5 mg INHALATION q 4 H PRN Fercho Dilma promethazine 12.5 mg tab(s) (PHENERGAN) 12.5 mg ORAL q 6 H PRN Fercho Dilma 12.5 mg at 12/03/17 1550 aspirin, enteric coated 81 mg tab(s) (ASPIRIN, ENTERIC COATED) 81 mg ORAL DAILY Fercho Dilma 81 mg at 12/03/17 0853 nitroglycerin sublingual 0.4 mg tab(s) (NITROQUICK) 0.4 mg SUBLINGUAL q 5 MIN PRN Fercho Dilma dextrose 40 % 15 g 15 g ORAL PRN Fercho Dilma Or glucagon 1 mg injection (GLUCAGEN) 1 mg INTRAMUSCULAR PRN Fercho Dilma Or dextrose 50% in water 25 mL syringe 12.5 g INTRAVENOUS PRN Fercho Dilma insulin lispro injection (rapid acting) (HumaLOG) SUBCUTANEOUS w MEALS Fercho Dilma 3 Units at 12/03/17 1839 insulin lispro injection (rapid acting) (HumaLOG) SUBCUTANEOUS AT BEDTIME Fercho Dilma 2 Units at 12/02/172012 ALPRAZolam 0.5 mg tab(s) (XANAX) 0.5 mg ORAL BID PRN Fercho Dilma 0.5 mg at 12/03/17 0640 OBJECTIVE PHYSICAL EXAM: BP 101/58 Pulse 72 Temp (Src) 98.4 (Oral) Resp 16 Ht 5' 7 (1.70m) Wt 180 lb 12.4 oz (82.0kg) SpO2 100% LMP 10/27/2015 BMI 28.31 kg/(m2). GENERAL: Obese, Alert, Mild Distress, Cooperative SKIN: Skin color, texture, turgor normal. No rashes or lesions. EYES: PERRLA, EOMI OROPHARYNX: Lips, mucosa, and tongue normal. Teeth and gums normal. Oropharynx normal. NECK: No jugulovenous distention, No carotid bruits, Carotid pulse normal contour, Supple LUNGS: Lungs clear to auscultation, Good diaphragmatic excursion CARDIAC: Normal S1 and S2; no rubs, murmurs, or gallops ABDOMEN: Abdomen soft, non-tender, BS normal, No masses or organomegaly EXTREMITIES: Extremities normal, no deformities, edema, clubbing or skin discoloration. Good capillary refill., No ulcers NEURO: Gait normal. Reflexes normal and symmetric. Sensation grossly intact, Cranial nerves II-XII intact PULSES: 2+ radial, 2+ carotid DATA: Diagnostic tests reviewed for today's visit: Most recent labs CBC: WBC 9.13 12/03/2017 HGB 15.3 12/03/2017 Hematocrit 46.0 12/03/2017 Platelet Count 224 12/03/2017 CMP: Sodium 139 12/03/2017 Potassium 4.3 12/03/2017 BUN 11 12/03/2017 Creatinine 0.70 12/03/2017 Glucose 76 12/03/2017 Chloride 99 12/03/2017 CO2 30 12/03/2017 VTE Prophylaxis: Pneumatic Compression Device Disposition: Home vs main campus for further work up for CAD.. Plan of care discussed with: Patient SIGNATURE: Dex Handy MD DATE: December 03, 2017 TIME: 8:36 PM Normal [facility] Sed Rate Westergrenon 2017 Sed Rate Westergren Unable to assay. No specimen received. Normal 0-20 [facility] Comment on above: Performed By: #### C BCDIF, PT, PTT, CMP #### [facility] [address] [place] [address] C-Reactive Proteinon 018 CRP mass conc 0.2 mg/dL Normal <0.9 [facility] Comment on above: Performed By: #### C BCDIF, PT, PTT, CMP #### [facility] [address] [place] [address] CBCon 12-02-2017 Erythrocyte distribution width Ratio (RBC) 13.4 % Normal 11.5-15.0 [facility] Comment on above: Performed By: #### C BCDIF, PT, PTT, CMP #### [facility] [address] [place] [address] Hematocrit Volume Fraction (Bld) 48.7 % High 36.0-46.0 [facility] Comment on above: Performed By: #### C BCDIF, PT, PTT, CMP #### [facility] [address] [place] [address] Hemoglobin mass conc (Bld) 16.9 g/dL High 11.5-15.5 [facility] Comment on above: Performed By: #### C BCDIF, PT, PTT, CMP #### [facility] [address] [place] [address] MCH Entitic mass (RBC) 27.6 pG Normal 26.0-34.0 [facility] Comment on above: Performed By: #### C BCDIF, PT, PTT, CMP #### [facility] [address] [place] [address] MCHC mass conc (RBC) 34.7 g/dL Normal 30.5-36.0 [facility] Comment on above: Performed By: #### C BCDIF, PT, PTT, CMP #### [facility] [address] [place] [address] MCV Entitic volume (RBC) 79.4 fL Low 80.0-100.0 [facility] Comment on above: Performed By: #### C BCDIF, PT, PTT, CMP #### [facility] [address] [place] [address] Platelet mean volume Entitic volume (Bld) 10.7 fL Normal 9.0-12.7 [facility] Comment on above: Performed By: #### C BCDIF, PT, PTT, CMP #### [facility] [address] [place] [address] Platelets #/vol (Bld) 215 10*3/uL Normal 150-400 [facility] Comment on above: Performed By: #### C BCDIF, PT, PTT, CMP #### [facility] [address] [place] [address] RBC #/vol (Bld) 6.13 10*6/uL High 3.90-5.20 [facility] Comment on above: Performed By: #### C BCDIF, PT, PTT, CMP #### [facility] [address] [place] [address] WBC #/vol (Bld) 12.44 10*3/uL High 3.70-11.00 [facility] Comment on above: Performed By: #### C BCDIF, PT, PTT, CMP #### [facility] [address] [place] [address] CONSULT PROGon 12-02-2017 Protein mass conc HNO ID: [id number] Author: Jevon Sherman Service: Clinical Cardiology Author Type: Physician Type: Consult Progress Note Filed: 12/02/2017 4:52 PM Note Text: PROGRESS NOTE CARDIOLOGY SERVICE SERVICE DATE: 12/02/2017 SERVICE TIME: 4:49 PM Subjective INTERIM HISTORY: she continues to have chest pain, worse when she coughs Objective PHYSICAL EXAM: Body mass index is 28.31 kg/m?. O2 Therapy: Room Air No Data Recorded Patient Vitals for the past 24 hrs: BP Temp Temp src Pulse Resp SpO2 12/02/17 1555 92/60 - - - - - 12/02/17 1507 89/57 36.4 ?C (97.5 ?F) Oral (!) 57 16 92 % 12/02/17 1123 97/58 36.4 ?C (97.5 ?F) Oral 71 18 99 % 12/02/17 0753 90/67 - - 66 18 100 % 12/02/17 0505 - (!) 34.2 ?C (93.5 ?F) Rectal - - - 12/02/17 0337 91/60 - - (!) 51 16 95 % 12/01/17 2346 (!) 91/46 36.5 ?C (97.7 ?F) Oral 63 16 96 % 12/01/17 1944 91/55 36.4 ?C (97.5 ?F) Oral 71 18 100 % Pleasant, comfortable, not in acute distress. Awake, alert, oriented times 3. Moves all extremities. SKIN: No rash or lumps. HEENT: Normocephalic, face symmetrical. NECK: Supple, no JVD, no carotid bruit, no thyromegaly. LUNGS: Clear to auscultation bilaterally. CARDIAC: PMI present, RRR, S1 and S2, no S3 or S4, no additional heart sounds or murmurs. ABDOMEN: Soft, nontender, bowel sounds present. EXTREMITIES: No edema. PULSES: Peripheral pulses present. MEDICATIONS: Current hospital medications: metoprolol tartrate (short acting) 12.5 mg tab(s) (LOPRESSOR) 12.5 mg ORAL q [address] 40 mg tab(s) (PROTONIX) 40 mg ORAL BID AC (0600/1600) sucralfate 1 g tab(s) (CARAFATE) 1 g ORAL TID atorvastatin 40 mg tab(s) (LIPITOR) 40 mg ORAL AT BEDTIME morphine 2 mg injection 2 mg INTRAVENOUS q 4 H PRN nitroglycerin sublingual 0.4 mg tab(s) (NITROQUICK) 0.4 mg SUBLINGUAL q 5 MIN PRN dicyclomine 20 mg tab(s) (BENTYL) 20 mg ORAL q 6 H lisinopril 10 mg tab(s) (ZESTRIL, PRINIVIL) 10 mg ORAL DAILY insulin glargine 40 Units injection (long acting) (LANTUS) 40 Units SUBCUTANEOUS BID sertraline 25 mg tab(s) (ZOLOFT) 25 mg ORAL DAILY albuterol 2.5 mg /3 mL (0.083 %) 2.5 mg (PROVENTIL) 2.5 mg INHALATION q 4 H PRN promethazine 12.5 mg tab(s) (PHENERGAN) 12.5 mg ORAL q 6 H PRN aspirin, enteric coated 81 mg tab(s) (ASPIRIN, ENTERIC COATED) 81 mg ORAL DAILY nitroglycerin sublingual 0.4 mg tab(s) (NITROQUICK) 0.4 mg SUBLINGUAL q 5 MIN PRN dextrose 40 % 15 g 15 g ORAL PRN glucagon 1 mg injection (GLUCAGEN) 1 mg INTRAMUSCULAR PRN dextrose 50% in water 25 mL syringe 12.5 g INTRAVENOUS PRN insulin lispro injection (rapid acting) (HumaLOG) SUBCUTANEOUS w MEALS insulin lispro injection (rapid acting) (HumaLOG) SUBCUTANEOUS AT BEDTIME ALPRAZolam 0.5 mg tab(s) (XANAX) 0.5 mg ORAL BID PRN DATA: Diagnostic tests reviewed for today's visit: Most recent labs Most recent imaging Most recent EKG Past 72 Hour Labs: Recent Labs 12/02/17 0724 12/01/17 0755 11/30/17 1845 11/30/17 1500 CK -- -- -- 41* -- -- CRP 0.2 -- -- -- -- -- TROPT -- <0.010 < > -- -- -- TROPI -- -- -- -- -- <0.03 WBC 12.44* -- -- 9.02 -- 9.4 RBC 6.13* -- -- 5.82* -- 6.15* HB 16.9* -- -- 16.2* < > 16.8* HCT 48.7* -- -- 46.8* -- 49.6* MCV 79.4* -- -- 80.4 -- 80.7* MCH 27.6 -- -- 27.8 -- 27.3 MCHC 34.7 -- -- 34.6 -- 33.9 RDWCV 13.4 -- -- 13.3 < > -- PLT 215 -- -- 247 -- 261 MPV 10.7 -- -- 9.9 -- 10.1 NEUTP -- -- -- 60.4 -- -- LYMPHP -- -- -- 31.4 -- -- MONOP -- -- -- 6.2 -- -- EODINP -- -- -- 1.4 -- -- BASOP -- -- -- 0.6 -- -- ABSNEUT -- -- -- 5.45 -- -- ABSMONO -- -- -- 0.56 -- -- ABSEOSIN -- -- -- 0.13 -- -- ABSBASO -- -- -- 0.05 -- -- GLUC 185* -- -- 260* -- 324* BUN 8 -- -- 5* -- 5* CREAT 0.61 -- -- 0.61 -- 0.61 NA 135* -- -- 137 -- 136 K 4.8 -- -- 4.1 -- 3.9 CHLOR 99 -- -- 102 -- 102 CO2 23 -- -- 23 -- 26 TPROT 6.2* -- -- 6.5 < > -- ALB 3.2* -- -- 3.5* < > -- CA 9.2 -- -- 8.5 -- 9.4 ALKPHOS 92 -- -- 97 < > -- TBILI 0.7 -- -- 0.7 < > -- AST 23 -- -- 26 < > -- ALT 14 -- -- 17 < > -- PTSEC -- -- -- 10.2 -- -- APTT -- -- -- 26.7 -- -- INR -- -- -- 1.0 -- -- MG 1.9 -- -- -- -- -- < > = values in this interval not displayed. Last Lab Drawn: TSH 0.83 04/07/2015 Triglyceride 179 12/01/2017 HDL Cholesterol 31 12/01/2017 LDL 110 12/01/2017 Cholesterol, Total 177 12/01/2017 Assessment/Plan 1. Chest pain- this sounds atypical for angina, but she does have DM, is a smoker, and has a highly abnormal echo, so this could be anginal 2. Abnormal echo with LVEF 30% and LAD territory wall motion abnormality; she does not have exam or lab findings consistent with volume overload or low cardiac output 3. DM 4. Active smoker 5. HTN 6. Hx of pericardial cyst seen on CT scan 01/2017 ? Recommend: - continue aspirin and statin - continue ACEI and carvedilol - echo and stress test on Sunday - she will likely need LHC if former echo findings are corroborated by cardiac imaging - NPO after midnight - smoking cessation ? Will continue to follow SIGNATURE: Jevon Sherman MD PATIENT NAME: Trenton Jackson DATE: December 02, 2017 TIME: 4:49 PM PAGER/CONTACT #: Normal [facility] Comp Metabolic Panelon 12-02 Albumin mass conc 3.2 g/dL Low 3.9-4.9 [facility] Comment on above: Performed By: #### C BCDIF, PT, PTT, CMP #### [facility] [address] [place] [address] ALP enzyme act/vol 92 U/L Normal 32-117 [facility] Comment on above: Performed By: #### C BCDIF, PT, PTT, CMP #### [facility] [address] [address] ALT enzyme act/vol 14 U/L Normal 7-38 [facility] Comment on above: Performed By: #### C BCDIF, PT, PTT, CMP #### [facility] [address] [place] [address] Anion gap molar conc 13 mmol/L Normal 9-18 [facility] Comment on above: Performed By: #### C BCDIF, PT, PTT, CMP #### [facility] [address] [place] [address] AST enzyme act/vol 23 U/L Normal 13-35 [facility] Comment on above: Result Comment: Resu lts may be falsely increased due to interference by hemolysis. Suggest reorder as clinically indicated. Performed By: #### C BCDIF, PT, PTT, CMP #### [facility] [address] [address] Bilirubin mass conc 0.7 mg/dL Normal 0.2-1.3 [facility] Comment on above: Performed By: #### C BCDIF, PT, PTT, CMP #### [facility] [address] Calcium mass conc 9.2 mg/dL Normal 8.5-10.2 [facility] Comment on above: Performed By: #### C BCDIF, PT, PTT, CMP #### [facility] [address] Chloride molar conc 99 mmol/L Normal 97-105 [facility] Comment on above: Performed By: #### C BCDIF, PT, PTT, CMP #### [facility] [address] CO2 molar conc 23 mmol/L Normal 22-30 [facility] Comment on above: Performed By: #### C BCDIF, PT, PTT, CMP #### [facility] [address] [address] Creatinine mass conc 0.61 mg/dL Normal 0.58-0.96 [facility] Comment on above: Performed By: #### C BCDIF, PT, PTT, CMP #### [facility] [address] [address] eGFR- Amer. >60 Normal [facility] Comment on above: Performed By: #### C BCDIF, PT, PTT, CMP #### [facility] [address] GFR/1.73 sq M predicted among non-blacks MDRD vol rate/area (S/P/Bld) mL/min/{1.73_m2} Normal [facility] Comment on above: Result Comment: eGFR (Estimated GFR) Units of measure: mL/min/1.73 meters squared eGFR is derived from the reexpressed MDRD Study equation using the following parameters: serum creatinine, age, gender and race. The creatinine assay has been calibrated to be traceable to IDMS. An eGFR <60 mL/min/1.73m2 for >3 months is consistent with chronic kidney disease. Refer to KDOQI guidelines for clinical interpretation. In patients with unstable renal function, e.g. those with acute kidney injury, the eGFR may not accurately reflect actual GFR. Performed By: #### C BCDIF, PT, PTT, CMP #### [facility] [address] Glucose mass conc 185 mg/dL High 74-99 [facility] Comment on above: Result Comment: The [place] [employer] (ADA) provides guidance for cutoff values for fasting glucose and random glucose. The ADA defines fasting as no caloric intake for at least 8 hours. Fasting plasma glucose results between 100 to 125 mg/dL indicate increased risk for diabetes (prediabetes). Fasting plasma glucose results greater than or equal to 126 mg/dL meet the criteria for diagnosis of diabetes. In the absence of unequivocal hyperglycemia, results should be confirmed by repeat testing. In a patient with classic symptoms of hyperglycemia or hyperglycemic crisis, random plasma glucose results greater than or equal to 200 mg/dL meet the criteria for diagnosis of diabetes. Reference: Standards of Medical Care in Diabetes 2016, [place] [employer]. Diabetes Care. 2016.39(Suppl 1). Performed By: #### C BCDIF, PT, PTT, CMP #### [facility] [address] [place] [address] Potassium molar conc 4.8 mmol/L Normal 3.7-5.1 [facility] Comment on above: Performed By: #### C BCDIF, PT, PTT, CMP #### [facility] [address] [place] [address] Protein mass conc 6.2 g/dL Low 6.3-8.0 [facility] Comment on above: Performed By: #### C BCDIF, PT, PTT, CMP #### [facility] [address] [place] [address] Sodium molar conc 135 mmol/L Low 136-144 [facility] Comment on above: Performed By: #### C BCDIF, PT, PTT, CMP #### [facility] [address] [place], [place] [id number] Urea nitrogen mass conc 8 mg/dL Normal 7-21 [facility] Comment on above: Performed By: #### C BCDIF, PT, PTT, CMP #### [facility] [address] [place], [place] [id number] Magnesiumon 12-02-2017 Magnesium mass conc 1.9 mg/dL Normal 1.7-2.3 [facility] Comment on above: Performed By: #### C BCDIF, PT, PTT, CMP #### [facility] [address] [facility] [phone] NURSING PROGon 12-02-2017 Protein mass conc HNO ID: [id number] Author: Flora (Rn) CHAYITO Varela Service: (none) Author Type: Registered Nurse Type: Nursing Progress Note Filed: 12/03/2017 4:25 AM Note Text: Nursing Progress Note Patient Name: Trenton Jackson Patient Location: [facility]/[id number] Daily Note:2009-Pt on phone, requesting pain med, for pain 6/10 chest, see AUG 2199- Pt refusing lantus as she will be npo after midnight and was symptomatic last night when not npo of BS in 80's. Dr Sorensen suggests half dose but pt still refusing. 0000- Sleeping SR on tele. 0200- sleeping SR on tele 0400- Sleeping SR on tele 0600 sleeping SR on tele This note was completed by: Flora Varela RN [facility] Protein mass conc HNO ID: [id number] Author: Sara AgudeloRn) CHAYITO Johnson Service: Nursing Author Type: Registered Nurse Type: Nursing Progress Note Filed: 12/02/2017 6:26 PM Note Text: Nursing Progress Note Patient Name: Trenton Jackson Patient Location: [facility]/[id number]- Daily Note:1555 - Assumed care of pt. Pt awoken for assessment see flowsheet. Pt C/O mid-sternal CP 7/10 om scale. Manual B/P- 90/62. 1620 - Resting in bed with eyes closed. Awoken and given PO Protonix at this time. 1625- Called spoke to Dr. Bocanegra and informed of manual B/P after IV bolus as well as pt C/O mid-sternal chest pain 7/10 on scale. Per MD believes pain is from reflux and new B/P medication. Informed that IV Morphine is for moderate pain, per MD if pt is not asking for pain medication hold at this time d/t low B/P. Pt is not asking for pain medication. 1650 - Resting in bed with eyes closed. 1725 - FSBS AC dinner was 210 and medicated with insulin SSC as per MD order at this time. No C/O. This note was completed by: Sara Johnson RN [facility] Protein mass conc HNO ID: [id number] Author: Jonna AgudeloRn) CHAYITO Boothe Service: Nursing Author Type: Registered Nurse Type: Nursing Progress Note Filed: 12/02/2017 2:09 PM Note Text: Nursing Progress Note Patient Name: Trenton Jackson Patient [facility]/[id number] Daily Note: 0715: Assumed care of patient. Assessment complete. Pt resting in bed with eyes open. Pt states she had some chest pain overnight and sweating from her blood sugar being low. No signs of distress or SOB. Will monitor. 0900: Pt resting in bed with eyes open. Pt states she was feeling nauseous still after taking medication for nausea and experiencing some anxiety after a stress full phone call. Will monitor. 1100: Pt resting in bed with eyes open. Will medicate patient for pain and anxiety. 1300: Pt asleep with eyes closed. No signs of pain or distress. This note was completed by: Jonna Boothe RN [facility] Protein mass conc HNO ID: [id number] Author: Patricio Solano) CHAYITO Tate Service: Nursing Author Type: Registered Nurse Type: Nursing Progress Note Filed: 12/02/2017 4:59 AM Note Text: Nursing Progress Note Patient Name: Trenton Jackson Patient Location: [facility]0304/[id number] Event(s) / Intervention Note: The patient was observed having the following problems: Pt heart monitor registering santa, pt observed sweating profusely, feeling lightheaded and nauseous. Pt glucose at 84, pt normally runs over 200 at home. The time of the event occurred at: 0354. The following intervention(s) were initiated: Pt given 2 orange juices and johnson crackers. After the initiated interventions, the following observation(s) were made: patient appears improved. Pt glucose 149, pt states she is cold but feeling a little better. This note was completed by: Patricio Tate RN [facility] PROGRESSon 12-02-2017 Protein mass conc HNO ID: [id number] Author: Lisa Bocanegra Service: Hospital Medicine Author Type: Physician Type: Progress Notes Filed: 12/03/2017 7:05 AM Note Text: INPATIENT PROGRESS NOTE SERVICE DATE: 12/02/2017 SERVICE TIME: 1.00PM Subjective CHIEF COMPLAINT: Patient laying down,sleepy but rousable Still has chest pain- unchanged. No fever,chills,N/V/D,dizzin ess. Current hospital medications: metoprolol tartrate (short acting) 12.5 mg tab(s) (LOPRESSOR) 12.5 mg ORAL q 12 H NaCl 0.9% 250 mL iv bolus 250 mL INTRAVENOUS ONCE pantoprazole DR 40 mg tab(s) (PROTONIX) 40 mg ORAL BID AC (0600/1600) sucralfate 1 g tab(s) (CARAFATE) 1 g ORAL TID atorvastatin 40 mg tab(s) (LIPITOR) 40 mg ORAL AT BEDTIME nitroglycerin sublingual 0.4 mg tab(s) (NITROQUICK) 0.4 mg SUBLINGUAL q 5 MIN PRN dicyclomine 20 mg tab(s) (BENTYL) 20 mg ORAL q 6 H lisinopril 10 mg tab(s) (ZESTRIL, PRINIVIL) 10 mg ORAL DAILY insulin glargine 40 Units injection (long acting) (LANTUS) 40 Units SUBCUTANEOUS BID sertraline 25 mg tab(s) (ZOLOFT) 25 mg ORAL DAILY albuterol 2.5 mg /3 mL (0.083 %) 2.5 mg (PROVENTIL) 2.5 mg INHALATION q 4 H PRN promethazine 12.5 mg tab(s) (PHENERGAN) 12.5 mg ORAL q 6 H PRN aspirin, enteric coated 81 mg tab(s) (ASPIRIN, ENTERIC COATED) 81 mg ORAL DAILY nitroglycerin sublingual 0.4 mg tab(s) (NITROQUICK) 0.4 mg SUBLINGUAL q 5 MIN PRN morphine 2 mg injection 2 mg INTRAVENOUS q 4 H PRN dextrose 40 % 15 g 15 g ORAL PRN glucagon 1 mg injection (GLUCAGEN) 1 mg INTRAMUSCULAR PRN dextrose 50% in water 25 mL syringe 12.5 g INTRAVENOUS PRN insulin lispro injection (rapid acting) (HumaLOG) SUBCUTANEOUS w MEALS insulin lispro injection (rapid acting) (HumaLOG) SUBCUTANEOUS AT BEDTIME ALPRAZolam 0.5 mg tab(s) (XANAX) 0.5 mg ORAL BID PRN Objective PHYSICAL EXAM: BP 97/58 Pulse 71 Temp (Src) 97.5 (Oral) Resp 18 Ht 5' 7 (1.70m) Wt 180 lb 12.4 oz (82.0kg) SpO2 99% LMP 10/27/2015 BMI 28.31 kg/(m2). Physical Exam Performed GENERAL: Alert, no distress, cooperative CHEST WALL:Anterior chest wall tenderness LUNGS: Lungs clear to auscultation, Good diaphragmatic excursion CARDIAC: Normal S1 and S2; no rubs, murmurs, or gallops ABDOMEN: Abdomen soft,epigastric tenderness, no rebound nor guarding , BS normal. EXTREMITIES:No edema NEURO:Awake,alert,oriente d x3 DATA: Diagnostic tests reviewed for today's visit: Most recent labs and imaging results. Assessment/Plan Active Problems: ??Chest pain POA: Yes ?Assessment AND?Plan: Persistent ,stable Chest pain is atypical in nature, more of musculoskeletal vs stress related. However,patient is a high risk patient. (HTN,HL,smoker,uncontroll ed diabetes) Heart score is 4, Had abnormal ECHO in mar 2017 which shows wall motion abnormality .EF 30 to 35%. Never Had stress test ,LHC or repeat echo- tests which Canot be done here On the weekend . 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 lidocaine patch not helping so d/c Hx of GERD.Try protonix,carafate to see if it helps Lipid panel abnormal while on zocor.,start lipitor ,d/c zocor started on coreg which I changed to metoprolol due to BP drop. .Continue ASA/ /continue SELENE/statin Check esr, crp,procal. For stress test and echo am by cardiology. ? ? Hypotension. Patient denies any symptoms - although laying in bed most times . Hypotension likely due to medication -coreg which I d/c and started her on lopressor which does not drop BP that fast. Like coreg. Parameters placed on BP and IVF N/S bolus given Continue to monitor . ??Essential hypertension POA: Yes ?Assessment AND?Plan: Ok to continue BP meds but with parameters Continue To monitor ? ??Depression POA: Yes Anxiety, POA, yes ?Assessment AND?Plan: Continue zoloft Xanax PRN Out pt psych f/u ? Uncontrolled ??Type 2 diabetes mellitus with complication, with long-term current use of insulin (HCC) POA: Yes ?Assessment AND?Plan: HBAIC 12.6 on 08/06/17 continue lantus 40 units BID, start SSI Home dose can be resumed after stress test am,oral hypoglycemics can also be added am after stress test And dose adjusted if needed . Consider endo consult for discharge planning ? ??Dyslipidemia POA: Yes ?Assessment AND?Plan: Lipid panel shows uncontrolled nos -trig 179,HDL 31,LDL 110, T/C 177 Stopped zocor as not working and started patient on lipitor. She will need repeat lipid panel in 4 weeks or more. ? Cardiomyopathy with EF 30-35% Unclear if ischemic or non ischemic As per cardiology , For echo and stress test am Leucocytosis/erythrocytos is Leucocytosis new. Erythrocytosis slightly worse . Patient denies any new symptoms She is a smoker Will Check esr,crp,procal Await repeat labs after she received IVF ?Dr Handy ?will assume care tomorrow 12/03/17 Medication and Non-Pharmacologic VTE Prophylaxis/Anticoagulant s Anticoagulant AND Antiplatelet Medications Start Dose Route Frequency Ordered Stop 12/01/17 0900 aspirin, enteric coated 81 mg tab(s) (ASPIRIN, ENTERIC COATED) 81 mg ORAL DAILY 11/30/17 2156 -- 11/30/17 2200 pneumatic compression stockings (fl,oh) VTE Prophylaxis: VTE prophylaxis appropriate SIGNATURE: Lisa Bocanegra MD PATIENT NAME: Trenton Jackson DATE: December 02, 2017 TIME: 1:07 PM PAGER: [phone] Normal [facility] Procalcitoninon 12-02-2017 Protein mass conc g/dL Normal <0.09 [facility] Comment on above: Result Comment: For a guided interpretation of test results, please visit the Change in Procalcitonin Calculator, [email or web address]. Performed By: #### C BCDIF, PT, PTT, CMP #### [facility] Laboratory [address] [phone] Sed Rate Westergrenon 2017 Sed Rate Westergren Unable to assay. Spe cimen grossly hemolyzed. Specimen may have been stored or transported frozen. Normal 0-20 [facility] Comment on above: Result Comment: Acco unt Credited Called to [id number] 7.1.18 NB Performed By: #### C BCDIF, PT, PTT, CMP #### [facility] [address] [phone] [facility] HNO ID: [id number] Author: Bety Lozada (Rn) CHAYITO Dempsey Service: Case Management Author Type: Registered Nurse Type: Care Mgt Initial Assessment Filed: 12/01/2017 9:52 AM Note Text: CARE MANAGEMENT: ASSESSMENT AND DISCHARGE PLAN SERVICE DATE: 12/01/2017 SERVICE TIME: 9:48 AM PRIMARY CARE PHYSICIAN: Uziel Conteh MD Confirmed. Likes am any day for follow ups. 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 No Advance Directive: Current Advance Directive: None Combat Control Assisted with AD Completion: Yes Action: Education Provided Health Literacy: 1. How often do you need to have someone help you when you read instructions, pamphlets, or other written material from your doctor or pharmacy? Never - 1 2. How confident are you filling out medical forms by yourself? Extremely - 1 If Patient scores > 3 on either question, the following interventions were put into place: Use of plain language and active listening with Patient and family, Use concrete and specific phrases, avoid medical jargon, Forms of communication used with patient and family, Sit with Patient and Gave Patient the opportunity to ask questions FUNCTIONAL AND COGNITIVE/BEHAVIORAL PRIOR TO ADMISSION: Baseline Mental Status: Alert AND Oriented, Person, Place and Time Functional Status: Independent Does Patient Currently Receive Any Community Services or Home Care? None Equipment Prior to Admission: None Has the Patient Been in a Penitentiary Facility in the Past 30 days? No SOCIAL: Living Arrangement: Home Lives With: Spouse and two children Financial Resources: Employed: [employer] Primary Contact: Extended Emergency Contact Information Primary Emergency Contact: Curry Jackson Jr Address: [address] [place] [address] [facility] Mobile Relation: Spouse Secondary Emergency Contact: Rebecca Dueñas Address: [place] [address] [facility] Relation: Mother Supportive: Yes Other Important Patient Contacts: None Caregiver Assessment: Caregiver is ready, willing and able to meet the patient's needs as recommended by the inter-professional team? Yes Patient's transition needs and plan for meeting these needs: self care Does the patient have an acute stroke diagnosis, or has the patient had a stroke during this admission? No Medication Adherence: I am convinced of the importance of my prescription medication: Agree mostly - 0 I worry that my prescription medication will do more harm than good to me Disagree mostly - 0 I feel financially burdened by my xvz-ie-toyimd expenses for my prescription medication: Disagree somewhat - 0 Patient is categorized as low risk < 2 Are you interested in bedside delivery of your medications? Yes , uses [facility] [place] Food Concerns: In the Last Month, Have You had Trouble Getting Food? No trouble getting food During the Last Month, Have You Worried Whether Your Food Would Run Out Before You Had Enough Money to Buy More? No Is the Patient Psychosocially Complex? No ASSESSMENT AND PLAN: Medical Needs: 2 or more chronic diseases Psychosocial Needs: None FREEDOM OF CHOICE EXPLAINED: Yes explained choices to patient POTENTIAL TRANSITION PLANS To Be Determined Bedside CHAYITO Coyle SIGNATURE: Bety Dempsey RN PATIENT NAME: Trenton Jackson DATE: December 01, 2017 TIME: 9:48 AM PAGER/CONTACT #: [phone] [facility] CONSULTon 12-01-2017 CONSULT HNO ID: [id number] Author: Jevon Sherman Service: Clinical Cardiology Author Type: Physician Type: Consults Filed: 12/01/2017 10:32 AM Note Text: CONSULT: CARDIOLOGY SERVICE SERVICE DATE: 12/01/2017 SERVICE TIME: 10:17 AM CONSULTING PHYSICIAN: Jevon Sherman MD PCP: Uziel Conteh MD ATTENDING: Lisa Bocanegra REASON FOR CONSULT: Chest Pain Subjective CHIEF COMPLAINT: Chest pain, unspecified type [R07.9] HISTORY OF PRESENT ILLNESS: Ms. Jackson is a 47 year old female who presents for evaluation of chest pain. She tells me that this chest pain started two days ago. It occurs with meals- she feels food gets stuck and then she has a pounding chest pressure and nausea; however, chest pain will also occur in the middle of the night and at other random times during the day as well. It is not associated with exertion. In the ER at [place] yesterday she had no ischemic changes on ECG, NSR, and negative Tn. She has a history of DM, is an active smoker, and had an abnormal echocardiogram last year showing LVEF 30% with an LAD territory wall motion abnormality with a dyskinetic apex. She has not seen a resume writer about this problem and was unaware of the echo findings- she thought that she was only being evaluated for a pericardial effusion. PAST MEDICAL HISTORY Diagnosis Date - Diabetes mellitus - Diverticula of intestine - Hyperlipemia - Hypertension - Incisional hernia - Psychiatric disorder PAST SURGICAL HISTORY Procedure Laterality Date - APPENDECTOMY 2007 - DELIVERY ONLY , low transverse - COLONOSCOPY 2001? - DANDC, DIAG AND/OR THERAPEUTIC 10/17/12 - EGD W/O OR W/BRUSH/WASH 02/01/2016 EGD - LAPAROSCOPIC CHOLEYCYSTECTOMY 1998 Cholecystectomy, lap - LIGATE FALLOPIAN TUBE Tubal ligation - PAST SURGICAL HISTORY OF 2009 cysy removed from neck - REPAIR INCIS HERNIA W MESH 10/16/13 - REPAIR INCISIONAL HERNIA,REDUCIBLE 10/16/13 - SIGMOIDOSCOPY FLEX DIAG 02/01/2016 Sigmoidoscopy, flexible FAMILY HISTORY Problem Relation Age of Onset - Thyroid Mother Graves - Diabetes Mother - Hypertension Mother - Diabetes Maternal Grandmother - Diabetes Maternal Uncle - Diabetes Maternal Aunt Social History Substance Use Topics - Smoking status: Current Every Day Smoker Packs/day: 0.50 Years: 27.00 - Smokeless tobacco: Never Used - Alcohol use No Prior to Admission Medications Prescriptions Last Dose Informant Patient Reported? Taking? SUMAtriptan (IMITREX) 100 mg tablet No No Sig: Take 1 tablet by mouth as needed. albuterol HFA (PROVENTIL HFA, VENTOLIN HFA) 90 mcg/actuation inhaler No No Sig: Inhale 2 Puffs as instructed every 4 hours as needed for Wheezing/Shortness of Breath. dicyclomine (BENTYL) 20 mg tablet No No Sig: Take 1 tablet by mouth every 6 hours. insulin aspart U-100 (NOVOLOG FLEXPEN U-100 INSULIN) 100 unit/mL inpn No No Sig: Inject 2 Units subcutaneously three times daily with meals. Per Sliding scale insulin glargine (LANTUS SOLOSTAR, BASAGLAR) 100 unit/mL (3 mL) inpn No No Sig: Inject 40 Units subcutaneously twice daily. insulin needles, DISPOSABLE, (UNIFINE PENTIPS) 31 gauge x 5/16 ndle No No Sig: Use with insulin injections lisinopril (ZESTRIL, PRINIVIL) 10 mg tablet No No Sig: Take 1 tablet by mouth once daily. omeprazole (PRILOSEC) 20 mg capsule No No Sig: Take 1 capsule by mouth once daily. promethazine (PHENERGAN) 12.5 mg tablet No No Sig: Take 1 tablet by mouth every 6 hours as needed for Nausea/Vomiting. sertraline (ZOLOFT) 25 mg tablet No No Sig: Take 1 tablet by mouth once daily. simvastatin (ZOCOR) 40 mg tablet No No Sig: Take 1 tablet by mouth daily at bedtime. Facility-Administered Medications: None Current hospital medications: lidocaine 5 % 1 Patch (LIDODERM) 1 Patch TRANSDERMAL DAILY lidocaine patch - REMOVE OTHER AT BEDTIME lidocaine - VERIFY PATCH OTHER q 8 H nitroglycerin sublingual 0.4 mg tab(s) (NITROQUICK) 0.4 mg SUBLINGUAL q 5 MIN PRN dicyclomine 20 mg tab(s) (BENTYL) 20 mg ORAL q 6 H simvastatin 40 mg tab(s) (ZOCOR) 40 mg ORAL AT BEDTIME lisinopril 10 mg tab(s) (ZESTRIL, PRINIVIL) 10 mg ORAL DAILY insulin glargine 40 Units injection (long acting) (LANTUS) 40 Units SUBCUTANEOUS BID pantoprazole DR 20 mg tab(s) (PROTONIX) 20 mg ORAL DAILY sertraline 25 mg tab(s) (ZOLOFT) 25 mg ORAL DAILY albuterol 2.5 mg /3 mL (0.083 %) 2.5 mg (PROVENTIL) 2.5 mg INHALATION q 4 H PRN promethazine 12.5 mg tab(s) (PHENERGAN) 12.5 mg ORAL q 6 H PRN aspirin, enteric coated 81 mg tab(s) (ASPIRIN, ENTERIC COATED) 81 mg ORAL DAILY nitroglycerin sublingual 0.4 mg tab(s) (NITROQUICK) 0.4 mg SUBLINGUAL q 5 MIN PRN morphine 2 mg injection 2 mg INTRAVENOUS q 4 H PRN dextrose 40 % 15 g 15 g ORAL PRN glucagon 1 mg injection (GLUCAGEN) 1 mg INTRAMUSCULAR PRN dextrose 50% in water 25 mL syringe 12.5 g INTRAVENOUS PRN insulin lispro injection (rapid acting) (HumaLOG) SUBCUTANEOUS w MEALS insulin lispro injection (rapid acting) (HumaLOG) SUBCUTANEOUS AT BEDTIME carvedilol 3.125 mg tab(s) (COREG) 3.125 mg ORAL BID w MEALS ALPRAZolam 0.5 mg tab(s) (XANAX) 0.5 mg ORAL BID PRN ALLERGIES Allergen Reactions - Latex Itching Red and dry cracking skin CARDIAC STATUS: Chest Pain: per HPI Dyspnea: Negative Ankle Edema: Negative Arrhythmia: Negative, Patient denies palpitations, lightheadedness, dizziness, syncope or near syncope. Functional Capacity: Average Activity includes Light activity REVIEW OF SYSTEMS: The following systems were reviewed with the patient, and are unremarkable other than as described below. SYSTEMIC: No fever, chills, or change in weight or appetite HEENT: No recent change in vision or hearing. CARDIOVASCULAR: No murmur, gallop. Denies chest pain or palpitations. : No recent hematuria or dysuria. SKIN: No recent itching or eruption. PSYCH: No recent active anxiety or depression. HEMATOLOGY/ONCOLOGY: No recent diagnosis of bleeding or cancer. ENDOCRINE: No recent polyuria or heat intolerance. NEURO: No recent TIA, stroke or seizures. RHEUMATOLOGY: No recent active connective tissue disease. Objective PHYSICAL EXAM: Pleasant, comfortable, not in acute distress. Awake, alert, oriented times 3. Moves all extremities. SKIN: No rash or lumps. HEENT: Normocephalic, face symmetrical. NECK: Supple, no JVD, no carotid bruit, no thyromegaly. LUNGS: Clear to auscultation bilaterally. CARDIAC: PMI present, RRR, S1 and S2, no S3 or S4, no additional heart sounds or murmurs. ABDOMEN: Soft, nontender, bowel sounds present. EXTREMITIES: No edema. PULSES: Peripheral pulses present. Body mass index is 28.31 kg/m?. O2 Therapy: Room Air No Data Recorded Patient Vitals for the past 48 hrs: BP Temp Temp src Pulse Resp SpO2 Height Weight 12/01/17 0748 129/81 36.5 ?C (97.7 ?F) Oral 91 16 97 % - - 12/01/17 0339 115/66 36.4 ?C (97.5 ?F) Oral 88 18 95 % - - 11/30/17 2353 137/90 36.8 ?C (98.2 ?F) Oral 97 18 97 % - - 11/30/17 2220 135/93 36.9 ?C (98.4 ?F) Oral 94 18 98 % - - 11/30/17 2200 - - - - - - - 82 kg (180 lb 12.4 oz) 11/30/172116 142/76 - - - - - - - 11/30/171958 124/76 36.8 ?C (98.2 ?F) Oral (!) 100 18 96 % - - 11/30/171917 109/64 - - (!) 105 - - - - 11/30/171915 118/70 - - (!) 100 - - - - 11/30/171848 125/80 - - (!) 108 18 98 % - - 11/30/171809 149/78 36.9 ?C (98.4 ?F) Oral (!) 113 18 97 % 170.2 cm (5' 7) 83.9 kg (185 lb) DATA: Diagnostic tests reviewed for today's visit: Most recent labs Most recent imaging Most recent EKG Past 72 Hour Labs: Recent Labs 12/01/1775411/30/17184411/30/17 1500 CK -- -- 41* -- TROPT <0.010 < > -- -- TROPI -- -- -- <0.03 WBC -- -- 9.02 9.4 RBC -- -- 5.82* 6.15* HB -- -- 16.2* 16.8* HCT -- -- 46.8* 49.6* MCV -- -- 80.4 80.7* MCH -- -- 27.8 27.3 MCHC -- -- 34.6 33.9 RDWCV -- -- 13.3 -- PLT -- -- 247 261 MPV -- -- 9.9 10.1 NEUTP -- -- 60.4 -- LYMPHP -- -- 31.4 -- MONOP -- -- 6.2 -- EODINP -- -- 1.4 -- BASOP -- -- 0.6 -- ABSNEUT -- -- 5.45 -- ABSMONO -- -- 0.56 -- ABSEOSIN -- -- 0.13 -- ABSBASO -- -- 0.05 -- GLUC -- -- 260* 324* BUN -- -- 5* 5* CREAT -- -- 0.61 0.61 NA -- -- 137 136 K -- -- 4.1 3.9 CHLOR -- -- 102 102 CO2 -- -- 23 26 TPROT -- -- 6.5 -- ALB -- -- 3.5* -- CA -- -- 8.5 9.4 ALKPHOS -- -- 97 -- TBILI -- -- 0.7 -- AST -- -- 26 -- ALT -- -- 17 -- PTSEC -- -- 10.2 -- APTT -- -- 26.7 -- INR -- -- 1.0 -- < > = values in this interval not displayed. Last Lab Drawn: TSH 0.83 04/07/2015 Triglyceride 128 04/07/2015 HDL Cholesterol 40 04/07/2015 LDL 105 04/07/2015 Prior Cardiac Workup: echo 03/2017 CONCLUSIONS: 1. Normal left ventricular size with moderate systolic dysfunction and abnormal regional wall motion. The LV ejection fraction is visually estimated to be about 30 to 35%. There are regional wall motion abnormalities in the left anterior descending artery territory. The basal, mid anteroseptal, inferoseptal, and apical interiano are severely hypokinetic to akinetic. The apex appears to be dyskinetic in some views. Definitive contrast was not used for the purpose of the study. 2. Stage 1 diastolic dysfunction (impaired relaxation). 3. Normal right ventricular size, but mild systolic dysfunction, TAPSE is calculated at 1.4 cm and this was reduced. 4. No significant valvular abnormalities. Mild aortic sclerosis without significant stenosis. 5. No evidence of pulmonary hypertension by Doppler. 6. No pericardial cysts are visualized on the study. There is no significant pericardial effusion. Consider cardiac CT/MRI if clinically indicated for assessment of pericardial cyst. Impression/Recommendation s 1. Chest pain- this sounds atypical for angina, but she does have DM, is a smoker, and has a highly abnormal echo, so this could be anginal 2. Abnormal echo with LVEF 30% and LAD territory wall motion abnormality; she does not have exam or lab findings consistent with volume overload or low cardiac output 3. DM 4. Active smoker 5. HTN 6. Hx of pericardial cyst seen on CT scan 01/2017 Recommend: - continue aspirin and statin - continue ACEI and carvedilol - echo and stress test on Sunday - she will likely need LHC if former echo findings are corroborated by cardiac imaging - I told her that she cannot drink non-diet soda while in the hospital and needs to stop when she does home as well - smoking cessation Will continue to follow SIGNATURE: Jevon Sherman MD PATIENT NAME: Trenton Jackson DATE: December 01, 2017 TIME: 10:17 AM PAGER/CONTACT #: [phone] [facility] Lipid Panel, [place] 12-01- 018 Cholesterol in HDL mass conc 31 mg/dL Low >39 [facility] Comment on above: Result Comment: 40-5 9 mg/dL, Acceptable >59 mg/dL, High: Negative risk factor for coronary heart disease <40 mg/dL, Low: Positive risk factor for coronary heart disease Performed By: #### C BCDIF, PT, PTT, CMP #### [facility] [address] [place], [place] [phone] Cholesterol in LDL mass conc 110 mg/dL High <100 [facility] Comment on above: Result Comment: <100 mg/dL, Optimal 100-129 mg/dL, Near optimal/above optimal 130-159 mg/dL, Borderline high 160-189 mg/dL, High >189 mg/dL, Very high Secondary prevention optimal LDL Cholesterol levels are recommended to be < 70 mg/dL Performed By: #### C BCDIF, PT, PTT, CMP #### [facility] [address] [place], [place] [phone] Cholesterol mass conc 177 mg/dL Normal <[address] [facility] Comment on above: Result Comment: <200 mg/dL, Desirable 200-239 mg/dL, Borderline high >239 mg/dL, High Performed By: #### C BCDIF, PT, PTT, CMP #### [facility] [address] Fasting Time Unknown Normal [facility] Comment on above: Performed By: #### C BCDIF, PT, PTT, CMP #### [facility] [address] [place], [place] [phone] LDL:HDL Ratio 3.55 High <2.54 [facility] Comment on above: Result Comment: Refe rence: 1. National Cholesterol Education Program ATP III Guideline At-A-Glance Quick Desk Reference: National Heart, Lung, and Blood [place]. National Institutes of Health. 2001: NIH Publication No. 01-3305. 2. An International Atherosclerosis Society position paper: global recommendations for the management of dyslipidemia: executive summary, Atherosclerosis. 2014: 232(2):410-413. Performed By: #### C BCDIF, PT, PTT, CMP #### [facility] [address] [address] Non HDL Cholesterol 146 mg/dL High <130 [facility] Comment on above: Result Comment: <130 mg/dL, Optimal 130-159 mg/dL, Near optimal/above optimal 160-189 mg/dL, Borderline high 190-219 mg/dL, High >219 mg/dL, Very high Secondary prevention optimal non HDL Cholesterol levels are recommended to be < 100 mg/dL Performed By: #### C BCDIF, PT, PTT, CMP #### [facility] [address] [place] [address] TC:HDL Ratio 5.71 High <5.10 [facility] Comment on above: Performed By: #### C BCDIF, PT, PTT, CMP #### [facility] [address] [address] Triglyceride mass conc 179 mg/dL High <150 [facility] Comment on above: Result Comment: <150 mg/dL, Normal 150-199 mg/dL, Borderline high 200-499 mg/dL, High >499 mg/dL, Very high Performed By: #### C BCDIF, PT, PTT, CMP #### [facility] [address] [place] [address] VLDL Cholesterol 36 mg/dL High <30 [facility] Comment on above: Performed By: #### C BCDIF, PT, PTT, CMP #### [facility] [address] [place] [address] NURSING PROGon 12-01-2017 Protein mass conc HNO ID: [id number] Author: Patricio (Rn) CHAYITO Tate Service: Nursing Author Type: Registered Nurse Type: Nursing Progress Note Filed: 12/02/2017 6:32 AM Note Text: Nursing Progress Note Patient Name: Trenton Jackson Patient Location: [id number] Daily Note: 1915: Assumed care of pt. Pt resting in bed. No complaints at this time. Call light within reach. 2100: Pt resting in bed. Complains of moderate pain, wants to wait until ready to go to sleep to take prn pain meds. Pt states she is hungry as she did not each much dinner, pt given crackers and peanut butter. Pt belongings and call light within reach. 2300: Pt resting in bed, complaint of pain 01/11, will medicate per AUG. Call light within reach. 0100: Pt observed sleeping. Call light within reach. 0300: Pt observed sleeping. Call light within reach. 0400: Pt tele monitor reading santa, pt observed sweating profusely. Glucose 84, normally 200's. Mcclain juice and johnson crackers given. Glucose up to 149. Pt feeling slightly better. Will continue to monitor. 0500: Pt observed sleeping. Unable to obtain oral or axillary temp to this point. Will obtain rectal temp. Call light within reach. This note was completed by: Patricio Tate RN [facility] Protein mass conc HNO ID: [id number] Author: Jonna (Rn) CHAYITO Boothe Service: Nursing Author Type: Registered Nurse Type: Nursing Progress Note Filed: 12/01/2017 5:58 PM Note Text: Nursing Progress Note Patient Name: Trenton Jackson Patient Location: [id number] Daily Note: 714: Assumed care of patient. Pt asleep with eyes closed. No signs of pain, SOB or distress. Will monitor. 0900: pt resting in bed with eyes open. Pt c/o 5/10 chest pain that is continuous. No SOB or distress noted. SR on Tele. 1100: Pt asleep with eyes closed. No signs of pain, SOB or distressed. Will monitor. 1145: Pt c/o 8/10 chest pain and feeling anxious about staying in the hospital. Will medicate per MAR. 1300: Pt resting in bed with eyes closed. No signs of pain or SOB. Will monitor. 1500: Pt resting in bed with eyes open. Pt c/o 3/10 pain without distress. No other needs at this time. 1700: Pt resting in bed with eyes open. Pt c/o 8/10 chest pain. Will medicate per MAR. Pt requested to have Lidocaine patch removed. This note was completed by: Jonna Boothe RN [facility] Protein mass conc HNO ID: [id number] Author: Patricio (Rn) CHAYITO Tate Service: Nursing Author Type: Registered Nurse Type: Nursing Progress Note Filed: 12/01/2017 5:01 AM Note Text: Nursing Progress Note Patient Name: Trenton Jackson Patient [id number] Daily Note: 2200: Assumed care of pt. Pt resting in bed, visibly upset and crying. States she is just concerned and feeling overwhelmed by her health problems and over hungry from not eating all day. Pt would like food when diet entered. Pt states her pain level is at 3/10. Pt shown where to find call light, light and tv controls. 2300: Pt resting in bed. Complaints of pain 5/10. Pt nauseas, will administer pain meds per AUG. Call light within reach. 0100: Pt observed sleeping. Call light within reach. 0130: Pt nauseas and vomiting. Pt anxious about health. Given meds per MAR. 0300: Pt observed sleeping. 0500: Pt observed sleeping. This note was completed by: Patricio Tate RN [facility] PROGRESSon 12-01-2017 Protein mass conc HNO ID: [id number] Author: Lisa Bocanegra Service: Hospital Medicine Author Type: Physician Type: Progress Notes Filed: 12/02/2017 2:47 AM Note Text: INPATIENT PROGRESS NOTE SERVICE DATE: 12/01/2017 SERVICE TIME: 2.00PM Subjective CHIEF COMPLAINT: Patient still having chest pain. Reproducible on exam No fever,chills. Has chronic smokers cough . Current hospital medications: lidocaine 5 % 1 Patch (LIDODERM) 1 Patch TRANSDERMAL DAILY lidocaine patch - REMOVE OTHER AT BEDTIME lidocaine - VERIFY PATCH OTHER q 8 H nitroglycerin sublingual 0.4 mg tab(s) (NITROQUICK) 0.4 mg SUBLINGUAL q 5 MIN PRN dicyclomine 20 mg tab(s) (BENTYL) 20 mg ORAL q 6 H simvastatin 40 mg tab(s) (ZOCOR) 40 mg ORAL AT BEDTIME lisinopril 10 mg tab(s) (ZESTRIL, PRINIVIL) 10 mg ORAL DAILY insulin glargine 40 Units injection (long acting) (LANTUS) 40 Units SUBCUTANEOUS BID pantoprazole DR 20 mg tab(s) (PROTONIX) 20 mg ORAL DAILY sertraline 25 mg tab(s) (ZOLOFT) 25 mg ORAL DAILY albuterol 2.5 mg /3 mL (0.083 %) 2.5 mg (PROVENTIL) 2.5 mg INHALATION q 4 H PRN promethazine 12.5 mg tab(s) (PHENERGAN) 12.5 mg ORAL q 6 H PRN aspirin, enteric coated 81 mg tab(s) (ASPIRIN, ENTERIC COATED) 81 mg ORAL DAILY nitroglycerin sublingual 0.4 mg tab(s) (NITROQUICK) 0.4 mg SUBLINGUAL q 5 MIN PRN morphine 2 mg injection 2 mg INTRAVENOUS q 4 H PRN dextrose 40 % 15 g 15 g ORAL PRN glucagon 1 mg injection (GLUCAGEN) 1 mg INTRAMUSCULAR PRN dextrose 50% in water 25 mL syringe 12.5 g INTRAVENOUS PRN insulin lispro injection (rapid acting) (HumaLOG) SUBCUTANEOUS w MEALS insulin lispro injection (rapid acting) (HumaLOG) SUBCUTANEOUS AT BEDTIME carvedilol 3.125 mg tab(s) (COREG) 3.125 mg ORAL BID w MEALS ALPRAZolam 0.5 mg tab(s) (XANAX) 0.5 mg ORAL BID PRN Objective PHYSICAL EXAM: BP 112/73 Pulse 80 Temp (Src) 98.1 (Oral) Resp 16 Ht 5' 7 (1.70m) Wt 180 lb 12.4 oz (82.0kg) SpO2 97% LMP 10/27/2015 BMI 28.31 kg/(m2). Physical Exam Performed GENERAL: Alert, no distress, cooperative LUNGS: Lungs clear to auscultation, Good diaphragmatic excursion CHEST WALL:Tenderness on anterior chest wall CARDIAC: Normal S1 and S2; no rubs, murmurs, or gallops ABDOMEN: Abdomen soft, epigastric discomfort , BS normal, No masses EXTREMITIES: No edema NEURO: Awake,alert,oriented x3 DATA: Diagnostic tests reviewed for today's visit: Most recent labs and imaging results. Assessment/Plan Principal Problem: Chest pain POA: Yes Assessment AND Plan: Chest pain is atypical in nature, more of musculoskeletal vs stress related. However,patient is a high risk patient. (HTN,HL,smoker,uncontroll ed diabetes) Heart score is 4, Had abnormal ECHO in mar 2017 which shows wall motion abnormality . Never Had stress test ,LHC or repeat echo- tests which Canot be done here On the weekend . States she was told she has a hx of pericardial effusion in the past but its too small and no further rx needed. EKG, trops x 3, high sensitivity troponin's are negative, CXR unremarkable Dr. Sherman was comfortable with the patient coming into the hospital here. Continue telemetry PRN morphine.Add lidocaine patch as still having pain. Lipid panel pending Await cardiology input BB started .Continue ASA/ /continue SELENE/statin ? ? Active Problems: Essential hypertension POA: Yes Assessment AND Plan: Continue SELENE, low dose BB started . Continue To monitor Await cardiology input ? Depression POA: Yes Anxiety, POA, yes Assessment AND Plan: Continue zoloft Xanax PRN Out pt psych f/u ? Uncontrolled Type 2 diabetes mellitus with complication, with long-term current use of insulin (HCC) POA: Yes Assessment AND Plan: HBAIC 12.6 on 08/06/17 Fair control continue lantus 40 units BID, start SSI Reasses am and adjust if needed ? Dyslipidemia POA: Yes Assessment AND Plan: Lipid panel pending Continue statin Cardiomyopathy. Unclear if ischemic or non ischemic Await cardiology input Medication and Non-Pharmacologic VTE Prophylaxis/Anticoagulant s Anticoagulant AND Antiplatelet Medications Start Dose Route Frequency Ordered Stop 12/01/17 0900 aspirin, enteric coated 81 mg tab(s) (ASPIRIN, ENTERIC COATED) 81 mg ORAL DAILY 11/30/176 -- 11/30/17 2200 pneumatic compression stockings (sc,oh) VTE Prophylaxis: VTE prophylaxis appropriate SIGNATURE: Lisa Bocanegra MD PATIENT NAME: Trenton Jackson DATE: December 01, 2017 TIME: 2:46 PM PAGER: [id number] Normal [facility] Troponin Ton 12-01-2017 Troponin T.cardiac mass conc ug/L Normal 0.000-0.[address] [place] [address] Comment on above: Performed By: #### T NT ####[facility] [address] [place] [phone] Troponin T.cardiac mass conc ug/L Normal 0.000-0.[address] [place] [address] Comment on above: Performed By: #### T NT ####[facility] [address] [place] [phone] APTTon 11-30-2017 aPTT Coag time (Bld) 26.7 s Normal 23.0-32.4 [facility] Comment on above: Result Comment: Unfr actionated Heparin Therapeutic Ranges: Standard Heparin Nomogram: 53 to 78 seconds (anti-Xa level of 0.3 to 0.7 U/ml) Low Dose/ACS Nomogram: 49 to 67 seconds (anti-Xa level of 0.2 to 0.5 U/ml) Stroke Treatment Nomogram: 49 to 67 seconds (anti-Xa level of 0.2 to 0.5 U/ml) Note: The APTT therapeutic range has been determined for the current lot of laboratory APTT reagent in use throughout the [facility]. Performed By: #### C BCDIF, PT, PTT, CMP #### [facility] Laboratory [address] [place] [address] CBC and Differentialon 11-30 Abs Baso 0.05 k/uL Normal <0.11 [facility] Comment on above: Performed By: #### C BCDIF, PT, PTT, CMP #### [facility] Laboratory [address] [place] [address] Abs Erie 0.56 k/uL Normal <0.87 [facility] Comment on above: Performed By: #### C BCDIF, PT, PTT, CMP #### [facility] Laboratory [address] [place] [address] Abs Neut 5.45 k/uL Normal 1.45-7.50 [facility] Comment on above: Performed By: #### C BCDIF, PT, PTT, CMP #### [facility] Laboratory [address] [place] [address] Basophils/100 WBC (Bld) 0.6 % Normal [facility] Comment on above: Performed By: #### C BCDIF, PT, PTT, CMP #### [facility] Laboratory [address] [place] [address] Eosinophils #/vol (Bld) 0.13 10*3/uL Normal <0.46 [facility] Comment on above: Performed By: #### C BCDIF, PT, PTT, CMP #### [facility] Laboratory [address] [place] [address] Eosinophils/100 WBC (Bld) 1.4 % Normal [facility] Comment on above: Performed By: #### C BCDIF, PT, PTT, CMP #### [facility] Laboratory [address] [place] [address] Erythrocyte distribution width Ratio (RBC) 13.3 % Normal 11.5-15.0 [facility] Comment on above: Performed By: #### C BCDIF, PT, PTT, CMP #### [facility] Laboratory [address] [place] [address] Hematocrit Volume Fraction (Bld) 46.8 % High 36.0-46.0 [facility] Comment on above: Performed By: #### C BCDIF, PT, PTT, CMP #### [facility] Laboratory [address] [place] [address] Hemoglobin mass conc (Bld) 16.2 g/dL High 11.5-15.5 [facility] Comment on above: Performed By: #### C BCDIF, PT, PTT, CMP #### [facility] Laboratory [address] [place] [address] Lymphocytes #/vol (Bld) 2.83 10*3/uL Normal 1.00-4.00 [facility] Comment on above: Performed By: #### C BCDIF, PT, PTT, CMP #### [facility] [address] Lymphocytes/100 WBC (Bld) 31.4 % Normal [facility] Comment on above: Performed By: #### C BCDIF, PT, PTT, CMP #### [facility] Laboratory [address] [phone] MCH Entitic mass (RBC) 27.8 pG Normal 26.0-34.0 [facility] Comment on above: Performed By: #### C BCDIF, PT, PTT, CMP #### [facility] Laboratory [address] [phone] MCHC mass conc (RBC) 34.6 g/dL Normal 30.5-36.0 [facility] Comment on above: Performed By: #### C BCDIF, PT, PTT, CMP #### [facility] Laboratory [address] [address] MCV Entitic volume (RBC) 80.4 fL Normal 80.0-100.0 [facility] Comment on above: Performed By: #### C BCDIF, PT, PTT, CMP #### [facility] Laboratory [address] [address] Monocytes/100 WBC (Bld) 6.2 % Normal [facility] Comment on above: Performed By: #### C BCDIF, PT, PTT, CMP #### [facility] [address] [phone] Neutrophils/100 WBC (Bld) 60.4 % Normal [facility] Comment on above: Performed By: #### C BCDIF, PT, PTT, CMP #### [facility] [address] Platelet mean volume Entitic volume (Bld) 9.9 fL Normal 9.0-12.7 [facility] Comment on above: Performed By: #### C BCDIF, PT, PTT, CMP #### [facility] [address] [phone] Platelets #/vol (Bld) 247 10*3/uL Normal 150-400 [facility] Comment on above: Performed By: #### C BCDIF, PT, PTT, CMP #### [facility] Laboratory [address] [address] RBC #/vol (Bld) 5.82 10*6/uL High 3.90-5.20 [facility] Comment on above: Performed By: #### C BCDIF, PT, PTT, CMP #### [facility] Laboratory [address] [address] WBC #/vol (Bld) 9.02 10*3/uL Normal 3.70-11.00 [facility] Comment on above: Performed By: #### C BCDIF, PT, PTT, CMP #### [facility] Laboratory [address] [address] CK, Total and CKMBon 018 CK enzyme act/vol 41 U/L Low 42-196 [facility] Comment on above: Performed By: #### N TBNP, CKCKMB #### [facility] Laboratory [address] [address] CK MB % CK MB % not reported with CK <100 U/L. Normal 0.0-4.0 [facility] Comment on above: Performed By: #### N TBNP, CKCKMB #### [facility] Laboratory [address] [place] [address] MB 1.7 ng/mL Normal <4.3 [facility] Comment on above: Performed By: #### N TBNP, CKCKMB #### [facility] Laboratory [address] [address] Comp Metabolic Panelon 11-30 Albumin mass conc 3.5 g/dL Low 3.9-4.9 [facility] Comment on above: Performed By: #### C BCDIF, PT, PTT, CMP #### [facility] Laboratory [address] [address] ALP enzyme act/vol 97 U/L Normal 32-117 [facility] Comment on above: Performed By: #### C BCDIF, PT, PTT, CMP #### [facility] Laboratory [address] [address] ALT enzyme act/vol 17 U/L Normal 7-38 [facility] Comment on above: Performed By: #### C BCDIF, PT, PTT, CMP #### [facility] Laboratory [address] [address] Anion gap molar conc 12 mmol/L Normal 9-18 [facility] Comment on above: Performed By: #### C BCDIF, PT, PTT, CMP #### [facility] Laboratory [address] [address] AST enzyme act/vol 26 U/L Normal 13-35 [facility] Comment on above: Performed By: #### C BCDIF, PT, PTT, CMP #### [facility] Laboratory [address] [address] Bilirubin mass conc 0.7 mg/dL Normal 0.2-1.3 [facility] Comment on above: Performed By: #### C BCDIF, PT, PTT, CMP #### [facility] Laboratory [address] [place] [address] Calcium mass conc 8.5 mg/dL Normal 8.5-10.2 [facility] Comment on above: Performed By: #### C BCDIF, PT, PTT, CMP #### [facility] Laboratory [address] [place] [address] Chloride molar conc 102 mmol/L Normal 97-105 [facility] Comment on above: Performed By: #### C BCDIF, PT, PTT, CMP #### [facility] Laboratory [address] [place] [address] CO2 molar conc 23 mmol/L Normal 22-30 [facility] Comment on above: Performed By: #### C BCDIF, PT, PTT, CMP #### [facility] Laboratory [address] [place] [address] Creatinine mass conc 0.61 mg/dL Normal 0.58-0.96 [facility] Comment on above: Performed By: #### C BCDIF, PT, PTT, CMP #### [facility] Laboratory [address] [place] [address] eGFR- Amer. >60 Normal [facility] Comment on above: Performed By: #### C BCDIF, PT, PTT, CMP #### [facility] Laboratory [address] [place] [address] GFR/1.73 sq M predicted among non-blacks MDRD vol rate/area (S/P/Bld) mL/min/{1.73_m2} Normal [facility] Comment on above: Result Comment: eGFR (Estimated GFR) Units of measure: mL/min/1.73 meters squared eGFR is derived from the reexpressed MDRD Study equation using the following parameters: serum creatinine, age, gender and race. The creatinine assay has been calibrated to be traceable to IDMS. An eGFR <60 mL/min/1.73m2 for >3 months is consistent with chronic kidney disease. Refer to KDOQI guidelines for clinical interpretation. In patients with unstable renal function, e.g. those with acute kidney injury, the eGFR may not accurately reflect actual GFR. Performed By: #### C BCDIF, PT, PTT, CMP #### [facility] Laboratory [address] [place] [address] Glucose mass conc 260 mg/dL High 74-99 [facility] Comment on above: Result Comment: The [place] Diabetes [employer] (ADA) provides guidance for cutoff values for fasting glucose and random glucose. The ADA defines fasting as no caloric intake for at least 8 hours. Fasting plasma glucose results between 100 to 125 mg/dL indicate increased risk for diabetes (prediabetes). Fasting plasma glucose results greater than or equal to 126 mg/dL meet the criteria for diagnosis of diabetes. In the absence of unequivocal hyperglycemia, results should be confirmed by repeat testing. In a patient with classic symptoms of hyperglycemia or hyperglycemic crisis, random plasma glucose results greater than or equal to 200 mg/dL meet the criteria for diagnosis of diabetes. Reference: Standards of Medical Care in Diabetes 2016, [place] [employer]. Diabetes Care. 2016.39(Suppl 1). Performed By: #### C BCDIF, PT, PTT, CMP #### [facility] Laboratory [address] [place] [address] Potassium molar conc 4.1 mmol/L Normal 3.7-5.1 [facility] Comment on above: Performed By: #### C BCDIF, PT, PTT, CMP #### [facility] Laboratory [address] [place] [address] Protein mass conc 6.5 g/dL Normal 6.3-8.0 [facility] Comment on above: Performed By: #### C BCDIF, PT, PTT, CMP #### [facility] Laboratory [address] [place] [address] Sodium molar conc 137 mmol/L Normal 136-144 [facility] Comment on above: Performed By: #### C BCDIF, PT, PTT, CMP #### [facility] Laboratory [address] [phone] Urea nitrogen mass conc 5 mg/dL Low 7-21 M [facility] Comment on above: Performed By: #### C BCDIF, PT, PTT, CMP #### [facility] Laboratory [address] [phone] ED NOTEon 11-30-2017 ED NOTE HNO ID: [id number] Author: Sara AgudeloRn) CHAYITO Bryson Service: Nursing Author Type: Registered Nurse Type: ED Notes Filed: 11/30/2017 9:26 PM Note Text: Report called to Patricio on 3S [facility] ED NOTE HNO ID: [id number] Author: Sara AgudeloRn) Braydon, RN Service: Nursing Author Type: Registered Nurse Type: ED Notes Filed: 11/30/2017 7:18 PM Note Text: Pt reports no relief of chest pain with nitro. SBP 125 to 109. [facility] ED NOTE HNO ID: [id number] Author: Sara Solano) Braydon, RN Service: Nursing Author Type: Registered Nurse Type: ED Notes Filed: 11/30/2017 6:45 PM Note Text: Pt presents to the ER tearful about being scared of chest pain she is having. Onset was 0200 this a.m. She was seen at [facility] ER earlier today and advised to be admitted for observation. Pt states she wanted to drive herself in after settling family arrangements. She indicates mid-sternal pain that is stabbing, aching, sharp, dull, and pressure all at the same time. She was given 4 baby ASA and morphine at [place], per pt. Medic at the bedside to lab and line. [facility] ED NOTE HNO ID: [id number] Author: Evelyne AgudeloRn) Vivien RN Service: (none) Author Type: Registered Nurse Type: ED Notes Filed: 11/30/2017 6:13 PM Note Text: Pt presents to ED with c/o chest pain. Pt explains she was seen at [place] ED earlier today and Ed wanted to transfer her to [facility] for obs but refused at that time Normal [facility] ED PROV NOTEon 11-30-2017 Protein mass conc HNO ID: [id number] Author: Rafy Cavanaugh III Service: (none) Author Type: Physician Organizational Consultant Type: ED Provider Notes Filed: 11/30/2017 9:05 PM Note Text: ED Provider Note Patient Name: Trenton Jackson SERVICE DATE: 11/30/17 History Patient presents with: Chest Pain ca HPI: 47-year-old female with a history of diabetes, hyperlipidemia, hypertension, psychiatric disorder, diverticulitis, ejection fraction of 35 and 35% presents to the emergency department for evaluation of chest pain. The patient was in [place] ED earlier and was seen and evaluated and they wanted to admit the patient but the patient wanted to sign out AGAINST MEDICAL ADVICE and go home first. The patient reports chest pain that started 2 AM this morning. The patient then went to the emergency department for evaluation. The patient did have reproducible pain but they wanted to admit due to the patient's past medical history. The patient was given 4 baby aspirin. The patient was given morphine. The patient points to the midsternal area as the area of pain. The patient describes it as pressure and aching. PMH: PAST MEDICAL HISTORY Diagnosis Date - Diabetes mellitus - Diverticula of intestine - Hyperlipemia - Hypertension - Incisional hernia - Psychiatric disorder PAST SURGICAL HISTORY Procedure Laterality Date - APPENDECTOMY 2007 - DELIVERY ONLY , low transverse - COLONOSCOPY 2001? - DANDC, DIAG AND/OR THERAPEUTIC 10/17/12 - EGD W/O OR W/BRUSH/WASH 02/01/2016 EGD - LAPAROSCOPIC CHOLEYCYSTECTOMY 1998 Cholecystectomy, lap - LIGATE FALLOPIAN TUBE Tubal ligation - PAST SURGICAL HISTORY OF 2009 cysy removed from neck - REPAIR INCIS HERNIA W MESH 10/16/13 - REPAIR INCISIONAL HERNIA,REDUCIBLE 10/16/13 - SIGMOIDOSCOPY FLEX DIAG 02/01/2016 Sigmoidoscopy, flexible Medications: No current facility-administered medications on file prior to encounter. Current Outpatient Prescriptions on File Prior to Encounter: promethazine (PHENERGAN) 12.5 mg tablet Take 1 tablet by mouth every 6 hours as needed for Nausea/Vomiting. albuterol HFA (PROVENTIL HFA, VENTOLIN HFA) 90 mcg/actuation inhaler Inhale 2 Puffs as instructed every 4 hours as needed for Wheezing/Shortness of Breath. dicyclomine (BENTYL) 20 mg tablet Take 1 tablet by mouth every 6 hours. simvastatin (ZOCOR) 40 mg tablet Take 1 tablet by mouth daily at bedtime. lisinopril (ZESTRIL, PRINIVIL) 10 mg tablet Take 1 tablet by mouth once daily. insulin glargine (LANTUS SOLOSTAR, BASAGLAR) 100 unit/mL (3 mL) inpn Inject 40 Units subcutaneously twice daily. insulin aspart U-100 (NOVOLOG FLEXPEN U-100 INSULIN) 100 unit/mL inpn Inject 2 Units subcutaneously three times daily with meals. Per Sliding scale insulin needles, DISPOSABLE, (UNIFINE PENTIPS) 31 gauge x 5/16 ndle Use with insulin injections omeprazole (PRILOSEC) 20 mg capsule Take 1 capsule by mouth once daily. sertraline (ZOLOFT) 25 mg tablet Take 1 tablet by mouth once daily. SUMAtriptan (IMITREX) 100 mg tablet Take 1 tablet by mouth as needed. 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 HENT: Negative for congestion and rhinorrhea. Respiratory: Negative for cough, chest tightness, shortness of breath and wheezing. Cardiovascular: Positive for chest pain. Negative for palpitations and leg swelling. Gastrointestinal: Positive for nausea. Negative for abdominal pain, diarrhea and vomiting. Genitourinary: Negative for dysuria and flank pain. Musculoskeletal: Negative for back pain, neck pain and neck stiffness. Skin: Negative for color change, pallor, rash and wound. Neurological: Negative for dizziness, syncope, speech difficulty, light-headedness and headaches. Hematological: Negative for adenopathy. Does not bruise/bleed easily. Psychiatric/Behavioral: Negative for agitation and confusion. All other systems reviewed and are negative. Physical Exam BP 149/78 Pulse 113 Temp (Src) 98.4 (Oral) Resp 18 Ht 5' 7 (1.70m) Wt 185 lb (83.9kg) SpO2 97% LMP 10/27/2015 BMI 28.97 kg/(m2). Physical Exam Constitutional: She is oriented to person, place, and time. She appears well-developed and well-nourished. No distress. HENT: Head: Normocephalic and atraumatic. Eyes: Conjunctivae are normal. Cardiovascular: Normal rate and regular rhythm. Pulmonary/Chest: Effort normal and breath sounds normal. No respiratory distress. She has no wheezes. She has no rales. She exhibits tenderness. Mild reproducible chest wall pain Abdominal: Soft. Bowel sounds are normal. She exhibits no distension and no mass. There is no tenderness. There is no rebound and no guarding. Musculoskeletal: Normal range of motion. She exhibits no edema or deformity. Neurological: She is alert and oriented to person, place, and time. Skin: Skin is warm and dry. Capillary refill takes less than 2 seconds. No rash noted. She is not diaphoretic. No erythema. No pallor. Psychiatric: She has a normal mood and affect. Her behavior is normal. Nursing note and vitals reviewed. Procedures MDM ED Course: EKG Interpretation: EKG showed normal sinus rhythm with left axis deviation, nonspecific ST-T wave changes in anterior leads, normal intervals. No significant change from previous. Repeat EKG showed normal sinus rhythm with a rate of 93, no significant change from previous EKG. No significant change from EKG earlier today. Results for orders placed or performed during the hospital encounter of 11/30/17 COMP METABOLIC PANEL Result Value Ref Range Protein, Total 6.5 6.3 - 8.0 g/dL Albumin 3.5 (L) 3.9 - 4.9 g/dL Calcium 8.5 8.5 - 10.2 mg/dL Bilirubin, Total 0.7 0.2 - 1.3 mg/dL Alkaline Phosphatase 97 32 - 117 U/L AST 26 13 - 35 U/L Glucose 260 (H) 74 - 99 mg/dL BUN 5 (L) 7 - 21 mg/dL Creatinine 0.61 0.58 - 0.96 mg/dL Sodium 137 136 - 144 mmol/L Potassium 4.1 3.7 - 5.1 mmol/L Chloride 102 97 - 105 mmol/L CO2 23 22 - 30 mmol/L Anion Gap 12 9 - 18 mmol/L ALT 17 7 - 38 U/L eGFR- >60 eGFR-All Other Races >60 . CK TOTAL AND CK-MB Result Value Ref Range CK 41 (L) 42 - 196 U/L MB 1.7 <4.3 ng/mL CK MB % CK MB % not reported with CK <100 U/L. 0.0 - 4.0 % HIGH SENSITIVITY TROPONIN T Result Value Ref Range THEO High Sensitivity 10 <12 ng/L HIGH SENSITIVITY TROPONIN T Result Value Ref Range THEO High Sensitivity 9 <12 ng/L NT PRO BNP Result Value Ref Range NT Pro BNP 517 (H) <125 pg/mL CBC + DIFF Result Value Ref Range WBC 9.02 3.70 - 11.00 k/uL RBC 5.82 (H) 3.90 - 5.20 m/uL Hemoglobin 16.2 (H) 11.5 - 15.5 g/dL Hematocrit 46.8 (H) 36.0 - 46.0 % MCV 80.4 80.0 - 100.0 fL MCH 27.8 26.0 - 34.0 pG MCHC 34.6 30.5 - 36.0 g/dL RDW-CV 13.3 11.5 - 15.0 % Platelet Count 247 150 - 400 k/uL MPV 9.9 9.0 - 12.7 fL Neut% 60.4 % Abs Neut (ANC) 5.45 1.45 - 7.50 k/uL Lymph% 31.4 % Abs Lymph 2.83 1.00 - 4.00 k/uL Erie% 6.2 % Abs Erie 0.56 <0.87 k/uL Eosin% 1.4 % Abs Eosin 0.13 <0.46 k/uL Baso% 0.6 % Abs Baso 0.05 <0.11 k/uL PROTHROMBIN TIME/PT Result Value Ref Range PT Sec 10.2 9.7 - 13.0 sec PT INR 1.0 0.9 - 1.3 ACTIVATED PTT Result Value Ref Range APTT 26.7 23.0 - 32.4 sec XR CHEST 1V FRONTAL PORT Final Result IMPRESSION: Lines, tubes, and devices: None. Lungs and pleura: No consolidation, pleural effusion or pneumothorax. Cardiomediastinal silhouette: Within normal limits. Other: No acute osseous abnormality is identified. Concrete Tile Machine Operator: GEORGE Transcribe Date/Time: Nov 30 2017 7:15P Dictated by : BRAD BLAKE MD This examination was interpreted and the report reviewed and electronically signed by: BRAD BLAKE MD on Nov 30 2017 7:16PM EST Medical Decision Making: The patient had already received aspirin today. The patient will have repeat EKG and laboratory studies, the patient will have chest x-ray. Patient will be reassessed and reevaluated after the investigations. She has an abnormal echo from March 2017 with EF about 35%: ? CONCLUSIONS: 1. Normal left ventricular size with moderate systolic dysfunction and abnormal regional wall motion. The LV ejection fraction is visually estimated to be about 30 to 35%. There are regional wall motion abnormalities in the left anterior descending artery territory. The basal, mid anteroseptal, inferoseptal, and apil interiano are severely hypokinetic to akinetic. The apex appears to be dyskinetic in some views. Definitive contrast was not used for the purpose of the study. 2. Stage 1 diastolic dysfunction (impaired relaxation). 3. Normal right ventricular size, but mild systolic dysfunction, TAPSE is calculated at 1.4 cm and this was reduced. 4. No significant valvular abnormalities. Mild aortic sclerosis without significant stenosis. 5. No evidence of pulmonary hypertension by Doppler. 6. No pericardial cysts are visualized on the study. There is no significant pericardial effusion. Consider cardiac CT/MRI if clinically indicated for assessment of pericardial cyst. The patient had artery received aspirin. The patient was given sublingual nitroglycerin no significant change in the patient's pain. The patient had initial tachycardia noted. The patient's EKG showed sinus rhythm without evidence of ST segment elevation. Largely unchanged from previous EKG today. The patient's laboratory studies show a normal white blood cell count at 9.02. Hemoglobin hematocrit are 16.2 and 46.8. The patient had a CMP that was within normal limits other than a glucose of 260. The patient's high sensitivity troponin initially was 10. Repeat was 9. The patient's CK and MB are within normal limits. The patient had a probe BMP of 517. Coags were normal. Chest x-ray did not show any significant change. Heart score is 4. Recommended admission for observation. The patient does have abnormal echo from 2017. The patient was discussed with the hospitalist who had concerns about bringing the patient in due to the abnormal echo that was done in March 2017. I spoke with Dr. Sherman and he was comfortable with the patient coming into the hospital here. The patient will be admitted for further evaluation. Dr. Jackson did except the patient. Clinical Impression: Encounter Diagnosis ICD-10-CM 1. Chest pain, unspecified type R07.9 Condition at disposition: stable Disposition: ADMITTED TO: Regular nursing floor. The attending who evaluated and managed this patient was Dr. GARCIA Jarrett. SIGNATURE: Rafy Cavanaugh III, PA-C Attending Note I have personally performed a face to face assessment of the patient and have reviewed the PA/CUTTING INSPECTOR note. My jones findings include: History - Ms. Jackson is a 47 yo F w/ h/o HTN and hyperlipidemia and DM and smoking, likely MA (EF lower and ? Dyskinesis in LAD) w/out rx previously, now here w/ chest pain/dyspnea/LH/nausea, intermittently sweaty, nearly 24 hrs now. Went to [place] trop initially ok, ECG NSST changes, advised tx here, left AMA, now here. Exam - no distress Assessment/Plan - ECG NSR @ 96 bpm no STEMI L axis deviation NSST changes anterior leads, which have been there previously, though it looks a bit more c/w ? aneurysm (as on previous echo) presently; will do hs trop and reassess. Clinically, pain less likely ACS. Other additions or changes: None Signature: Allan Jarrett MD Date: 11/30/2017 Time: 7:05 PM Rafy Cavanaugh III [id number] Normal [facility] HISTORY PHYSICALon HISTORY PHYSICAL HNO ID: [id number] Author: Fercho Osborne Service: Hospital Medicine Author Type: Physician Type: HANDP Filed: 11/30/2017 10:37 PM Note Text: DEPARTMENT OF HOSPITAL MEDICINE HISTORY AND PHYSICAL EXAM SERVICE DATE: 11/30/2017 SERVICE TIME: 9:48 PM Primary Care Physician: Uziel Conteh MD NIGHT AND WEEKEND COVERAGE: Nights: Please contact pager [phone]. Subjective HPI 47 Y F with PMH of diabetes, hyperlipidemia, hypertension, anxiety, depression, H/O pericardial effusion, systolic dysfunction, EF of 35 and 35% in 03/20, presents to the ED for evaluation of chest pain. The patient was seen in [place] ED earlier today and they wanted to admit but the patient left AGAINST MEDICAL ADVICE. The patient reports chest pain that started 2 AM this morning when she woke up to use the rest room, reports as crushing/sharp and punching type, non radiating, non exertional, gets worse with cough at times and stress, had some relief with heat pads in the morning and ASA but no response to nitro in the ED. She is very emotional when talking to her, reports she is under stress. She still c/o chest pain at this time and reports tender to touch. Reports chronic smoking about 30 yrs with 1 and pack per day. No H/O CAD in the past. No family H/O early CAD. PAST MEDICAL HISTORY Diagnosis Date - Diabetes mellitus - Diverticula of intestine - Hyperlipemia - Hypertension - Incisional hernia - Psychiatric disorder PAST SURGICAL HISTORY Procedure Laterality Date - APPENDECTOMY 2007 - DELIVERY ONLY , low transverse - COLONOSCOPY 2001? - DANDC, DIAG AND/OR THERAPEUTIC 10/17/12 - EGD W/O OR W/BRUSH/WASH 02/01/2016 EGD - LAPAROSCOPIC CHOLEYCYSTECTOMY 1998 Cholecystectomy, lap - LIGATE FALLOPIAN TUBE Tubal ligation - PAST SURGICAL HISTORY OF 2009 cysy removed from neck - REPAIR INCIS HERNIA W MESH 10/16/13 - REPAIR INCISIONAL HERNIA,REDUCIBLE 10/16/13 - SIGMOIDOSCOPY FLEX DIAG 02/01/2016 Sigmoidoscopy, flexible FAMILY HISTORY Problem Relation Age of Onset - Thyroid Mother Graves - Diabetes Mother - Hypertension Mother - Diabetes Maternal Grandmother - Diabetes Maternal Uncle - Diabetes Maternal Aunt Social History Substance Use Topics - Smoking status: Current Every Day Smoker Packs/day: 0.50 Years: 27.00 - Smokeless tobacco: Never Used - Alcohol use No MEDICATIONS: Reviewed ALLERGIES Allergen Reactions - Latex Itching Red and dry cracking skin Review of Systems Review of Systems REVIEW OF SYSTEMS: CONSTITUTIONAL: No fevers, chills, nightsweats, unintended weight loss HEENT: Denies frequent or severe heaches, nasal congestion/sinus symptoms, problematic allergy problems. EYES: No diplopia or blurry vision. CARDIOVASCULAR: + chest pain, dyspnea, palpitations, orthopnea, PND, ankle edema. PULM: No dyspnea, unexplained cough. GI: No dysphagia/odynophagia, problematic reflux, constipation, diarrhea, changes in stool habits, hematochezia, melena. : No new urinary complaints, including dysuria, gross hematuria or pyuria. NEURO: No new balance problems, peripheral weakness/paresthesias or numbness of concern. MUSC-SKEL: No new joint pain, swelling, or erythema. PSY: + depression, + anxiety or panic. INTEGUMENTARY: No new skin changes (rash, new or changing mole, new growth) Objective Physical Exam Performed BP 142/76 Pulse 100 Temp (Src) 98.2 (Oral) Resp 18 Ht 5' 7 (1.70m) Wt 185 lb (83.9kg) SpO2 96% LMP 10/27/2015 BMI 28.97 kg/(m2). Physical Exam Lines, Drains, and Airways Line Peripheral 11/30/17 184 Short Left Antecubital 20 Gauge less than 1 day Reviewed lines, drains, airways. Will discuss with nurse and discontinue at discharge PHYSICAL EXAMINATION General: Alert and oriented, no distress, pleasant and cooperative. Heart: Regular, normal S1 and S2, no murmurs, rubs, or gallops Lungs: Clear to auscultation bilaterally Abdomen: Benign Extremities: Feet/ankles without edema, posterior tibial pulses full and symmetrical DATA: Diagnostic tests reviewed for today's visit: Most recent labs and imaging results. CBC, Coags, BMP, Mg, Phos Recent Labs 11/30/17 1845 11/30/17 1500 WBC 9.02 9.4 HB 16.2* 16.8* HCT 46.8* 49.6* PLT 247 261 INR 1.0 -- APTT 26.7 -- NA 137 136 K 4.1 3.9 CHLOR 102 102 CO2 23 26 BUN 5* 5* CREAT 0.61 0.61 GLUC 260* 324* CA 8.5 9.4 Abnormal echo from March 2017 with EF about 35%: ? CONCLUSIONS: 1. Normal left ventricular size with moderate systolic dysfunction and abnormal ?regional wall motion. ?The LV ejection fraction is visually estimated to be ?about 30 to 35%. ?There are regional wall motion abnormalities in the left ?anterior descending artery territory. ?The basal, mid anteroseptal, ?inferoseptal, and apil interiano are severely hypokinetic to akinetic. ?The apex ?appears to be dyskinetic in some views. ?Definitive contrast was not used for ?the purpose of the study. 2. Stage 1 diastolic dysfunction (impaired relaxation). 3. Normal right ventricular size, but mild systolic dysfunction, TAPSE is ?calculated at 1.4 cm and this was reduced. 4. No significant valvular abnormalities. ?Mild aortic sclerosis without ?significant stenosis. 5. No evidence of pulmonary hypertension by Doppler. 6. No pericardial cysts are visualized on the study. ?There is no significant ?pericardial effusion. ?Consider cardiac CT/MRI if clinically indicated for ?assessment of pericardial cyst. Assessment/Plan Principal Problem: Chest pain POA: Yes Assessment AND Plan: Chest pain is atypical in nature, more of musculoskeletal vs stress related Low suspicion for ACS EKG, CE x 2 high sensitivity troponin's are negative, CXR unremarkable Never Had stress test or [facility] Had abnormal ECHO in mar 2017 as above Heart score is 4, Dr. Sherman and he was comfortable with the patient coming into the hospital here. Keep on observation Telemetry CE x 2 Cant get ECHO over the weekend Consult cardiology Check Lipid panel control risk factors Morphine as needed for chest pain Continue ASA/start low dose BB/continue SELENE/statin Active Problems: Essential hypertension POA: Yes Assessment AND Plan: Continue SELENE, start low dose BB Depression POA: Yes Anxiety, POA, yes Assessment AND Plan: Continue zoloft Xanax PRN Out pt psych f/u Type 2 diabetes mellitus with complication, with long-term current use of insulin (HCC) POA: Yes Assessment AND Plan: continue lantus 40 units BID, start SSI Dyslipidemia POA: Yes Assessment AND Plan: Continue statin VTE Prophylaxis: Pneumatic Compression Device Disposition: Home Plan of care discussed with: Patient, ER physician, and RN SIGNATURE: Fercho Osborne MD PATIENT NAME: Trenton Jackson DATE: November 30, 2017 TIME: 9:48 PM PAGER/CONTACT #: [id number] Normal [facility] HOSPon 11-30-2017 HOSP Patient:Olamide Jackson MRN: Height:5' 7(1.702 m) Weight:180 lb 12.4 oz (82 kg) Outpatient Medications as of 12/04/17: promethazine (PHENERGAN) 12.5 mg tablet albuterol HFA (PROVENTIL HFA, VENTOLIN HFA) 90 mcg/actuation inhaler dicyclomine (BENTYL) 20 mg tablet simvastatin (ZOCOR) 40 mg tablet lisinopril (ZESTRIL, PRINIVIL) 10 mg tablet insulin glargine (LANTUS SOLOSTAR, BASAGLAR) 100 unit/mL (3 mL) inpn insulin aspart U-100 (NOVOLOG FLEXPEN U-100 INSULIN) 100 unit/mL inpn insulin needles, DISPOSABLE, (UNIFINE PENTIPS) 31 gauge x 5/16 ndle omeprazole (PRILOSEC) 20 mg capsule sertraline (ZOLOFT) 25 mg tablet SUMAtriptan (IMITREX) 100 mg tablet Admission/Clinic Administered Medications as of 12/04/17: atorvastatin 80 mg tab(s) (LIPITOR) lisinopril 5 mg tab(s) (ZESTRIL, PRINIVIL) metoprolol succinate ER 25 mg tab(s) (TOPROL XL) ALPRAZolam 0.5 mg tab(s) (XANAX) pantoprazole DR 40 mg tab(s) (PROTONIX) sucralfate 1 g tab(s) (CARAFATE) morphine 2 mg injection nitroglycerin sublingual 0.4 mg tab(s) (NITROQUICK) dicyclomine 20 mg tab(s) (BENTYL) insulin glargine 40 Units injection (long acting) (LANTUS) sertraline 25 mg tab(s) (ZOLOFT) albuterol 2.5 mg /3 mL (0.083 %) 2.5 mg (PROVENTIL) promethazine 12.5 mg tab(s) (PHENERGAN) aspirin, enteric coated 81 mg tab(s) (ASPIRIN, ENTERIC COATED) nitroglycerin sublingual 0.4 mg tab(s) (NITROQUICK) dextrose 40 % 15 g glucagon 1 mg injection (GLUCAGEN) dextrose 50% in water 25 mL syringe insulin lispro injection (rapid acting) (HumaLOG) insulin lispro injection (rapid acting) (HumaLOG) Problem List: Abdominal pain, other specified site [R10.9] Essential hypertension [I10] Pericardial cyst [Q24.8] Pericardial effusion [I31.3] Depression [F32.9] Anxiety [F41.9] Right-sided low back pain with right-sided sciatica [M54.41] Type 2 diabetes mellitus with complication, with long-term current use of insulin (HCC) [E11.8, Z79.4] Chest pain [R07.9] Dyslipidemia [E78.5] Chest pain at rest [R07.9] Cardiomyopathy (HCC) [I42.9] Smoker [F17.200] Leucocytosis [D72.829] Erythrocytosis [D75.1] Hypotension [I95.9] Allergies: Latex Date Verified: 12/03/17 Lab Values Lab Value Units Date High Low POTA* 4.1 mmol/L 12/04/2017 5.1 3.7 CORTEZ* 44.2 % 12/04/2017 46.0 36.0 Progress Notes (): Evelyen Puga, RN, RN 11/30/2017 6:13 PM Signed Pt presents to ED with c/o chest pain. Pt explains she was seen at [place] ED earlier today and Ed wanted to transfer her to [facility] for obs but refused at that time Rafy Cavanaugh III, PA-C 11/30/2017 9:05 PM Signed ED Provider Note Patient Name: Trenton Jackson SERVICE DATE: 11/30/17 History Patient presents with: Chest Pain ca HPI: 47-year-old female with a history of diabetes, hyperlipidemia, hypertension, psychiatric disorder, diverticulitis, ejection fraction of 35 and 35% presents to the emergency department for evaluation of chest pain. The patient was in [place] ED earlier and was seen and evaluated and they wanted to admit the patient but the patient wanted to sign out AGAINST MEDICAL ADVICE and go home first. The patient reports chest pain that started 2 AM this morning. The patient then went to the emergency department for evaluation. The patient did have reproducible pain but they wanted to admit due to the patient's past medical history. The patient was given 4 baby aspirin. The patient was given morphine. The patient points to the midsternal area as the area of pain. The patient describes it as pressure and aching. PMH: PAST MEDICAL HISTORY Diagnosis Date - Diabetes mellitus - Diverticula of intestine - Hyperlipemia - Hypertension - Incisional hernia - Psychiatric disorder PAST SURGICAL HISTORY Procedure Laterality Date - APPENDECTOMY 2007 - DELIVERY ONLY , low transverse - COLONOSCOPY 2001? - DANDC, DIAG AND/OR THERAPEUTIC 10/17/12 - EGD W/O OR W/BRUSH/WASH 02/01/2016 EGD - LAPAROSCOPIC CHOLEYCYSTECTOMY 1998 Cholecystectomy, lap - LIGATE FALLOPIAN TUBE Tubal ligation - PAST SURGICAL HISTORY OF 2009 cysy removed from neck - REPAIR INCIS HERNIA W MESH 10/16/13 - REPAIR INCISIONAL HERNIA,REDUCIBLE 10/16/13 - SIGMOIDOSCOPY FLEX DIAG 02/01/2016 Sigmoidoscopy, flexible Medications: No current facility-administered medications on file prior to encounter. Current Outpatient Prescriptions on File Prior to Encounter: promethazine (PHENERGAN) 12.5 mg tablet Take 1 tablet by mouth every 6 hours as needed for Nausea/Vomiting. albuterol HFA (PROVENTIL HFA, VENTOLIN HFA) 90 mcg/actuation inhaler Inhale 2 Puffs as instructed every 4 hours as needed for Wheezing/Shortness of Breath. dicyclomine (BENTYL) 20 mg tablet Take 1 tablet by mouth every 6 hours. simvastatin (ZOCOR) 40 mg tablet Take 1 tablet by mouth daily at bedtime. lisinopril (ZESTRIL, PRINIVIL) 10 mg tablet Take 1 tablet by mouth once daily. insulin glargine (LANTUS SOLOSTAR, BASAGLAR) 100 unit/mL (3 mL) inpn Inject 40 Units subcutaneously twice daily. insulin aspart U-100 (NOVOLOG FLEXPEN U-100 INSULIN) 100 unit/mL inpn Inject 2 Units subcutaneously three times daily with meals. Per Sliding scale insulin needles, DISPOSABLE, (UNIFINE PENTIPS) 31 gauge x 5/16 ndle Use with insulin injections omeprazole (PRILOSEC) 20 mg capsule Take 1 capsule by mouth once daily. sertraline (ZOLOFT) 25 mg tablet Take 1 tablet by mouth once daily. SUMAtriptan (IMITREX) 100 mg tablet Take 1 tablet by mouth as needed. 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 HENT: Negative for congestion and rhinorrhea. Respiratory: Negative for cough, chest tightness, shortness of breath and wheezing. Cardiovascular: Positive for chest pain. Negative for palpitations and leg swelling. Gastrointestinal: Positive for nausea. Negative for abdominal pain, diarrhea and vomiting. Genitourinary: Negative for dysuria and flank pain. Musculoskeletal: Negative for back pain, neck pain and neck stiffness. Skin: Negative for color change, pallor, rash and wound. Neurological: Negative for dizziness, syncope, speech difficulty, light-headedness and headaches. Hematological: Negative for adenopathy. Does not bruise/bleed easily. Psychiatric/Behavioral: Negative for agitation and confusion. All other systems reviewed and are negative. Physical Exam BP 149/78 Pulse 113 Temp (Src) 98.4 (Oral) Resp 18 Ht 5' 7 (1.70m) Wt 185 lb (83.9kg) SpO2 97% LMP 10/27/2015 BMI 28.97 kg/(m2). Physical Exam Constitutional: She is oriented to person, place, and time. She appears well-developed and well-nourished. No distress. HENT: Head: Normocephalic and atraumatic. Eyes: Conjunctivae are normal. Cardiovascular: Normal rate and regular rhythm. Pulmonary/Chest: Effort normal and breath sounds normal. No respiratory distress. She has no wheezes. She has no rales. She exhibits tenderness. Mild reproducible chest wall pain Abdominal: Soft. Bowel sounds are normal. She exhibits no distension and no mass. There is no tenderness. There is no rebound and no guarding. Musculoskeletal: Normal range of motion. She exhibits no edema or deformity. Neurological: She is alert and oriented to person, place, and time. Skin: Skin is warm and dry. Capillary refill takes less than 2 seconds. No rash noted. She is not diaphoretic. No erythema. No pallor. Psychiatric: She has a normal mood and affect. Her behavior is normal. Nursing note and vitals reviewed. Procedures MDM ED Course: EKG Interpretation: EKG showed normal sinus rhythm with left axis deviation, nonspecific ST-T wave changes in anterior leads, normal intervals. No significant change from previous. Repeat EKG showed normal sinus rhythm with a rate of 93, no significant change from previous EKG. No significant change from EKG earlier today. Results for orders placed or performed during the hospital encounter of 11/30/17 COMP METABOLIC PANEL Result Value Ref Range Protein, Total 6.5 6.3 - 8.0 g/dL Albumin 3.5 (L) 3.9 - 4.9 g/dL Calcium 8.5 8.5 - 10.2 mg/dL Bilirubin, Total 0.7 0.2 - 1.3 mg/dL Alkaline Phosphatase 97 32 - 117 U/L AST 26 13 - 35 U/L Glucose 260 (H) 74 - 99 mg/dL BUN 5 (L) 7 - 21 mg/dL Creatinine 0.61 0.58 - 0.96 mg/dL Sodium 137 136 - 144 mmol/L Potassium 4.1 3.7 - 5.1 mmol/L Chloride 102 97 - 105 mmol/L CO2 23 22 - 30 mmol/L Anion Gap 12 9 - 18 mmol/L ALT 17 7 - 38 U/L eGFR- >60 eGFR-All Other Races >60 . CK TOTAL AND CK-MB Result Value Ref Range CK 41 (L) 42 - 196 U/L MB 1.7 <4.3 ng/mL CK MB % CK MB % not reported with CK <100 U/L. 0.0 - 4.0 % HIGH SENSITIVITY TROPONIN T Result Value Ref Range THEO High Sensitivity 10 <12 ng/L HIGH SENSITIVITY TROPONIN T Result Value Ref Range THEO High Sensitivity 9 <12 ng/L NT PRO BNP Result Value Ref Range NT Pro BNP 517 (H) <125 pg/mL CBC + DIFF Result Value Ref Range WBC 9.02 3.70 - 11.00 k/uL RBC 5.82 (H) 3.90 - 5.20 m/uL Hemoglobin 16.2 (H) 11.5 - 15.5 g/dL Hematocrit 46.8 (H) 36.0 - 46.0 % MCV 80.4 80.0 - 100.0 fL MCH 27.8 26.0 - 34.0 pG MCHC 34.6 30.5 - 36.0 g/dL RDW-CV 13.3 11.5 - 15.0 % Platelet Count 247 150 - 400 k/uL MPV 9.9 9.0 - 12.7 fL Neut% 60.4 % Abs Neut (ANC) 5.45 1.45 - 7.50 k/uL Lymph% 31.4 % Abs Lymph 2.83 1.00 - 4.00 k/uL Erie% 6.2 % Abs Erie 0.56 <0.87 k/uL Eosin% 1.4 % Abs Eosin 0.13 <0.46 k/uL Baso% 0.6 % Abs Baso 0.05 <0.11 k/uL PROTHROMBIN TIME/PT Result Value Ref Range PT Sec 10.2 9.7 - 13.0 sec PT INR 1.0 0.9 - 1.3 ACTIVATED PTT Result Value Ref Range APTT 26.7 23.0 - 32.4 sec XR CHEST 1V FRONTAL PORT Final Result IMPRESSION: Lines, tubes, and devices: None. Lungs and pleura: No consolidation, pleural effusion or pneumothorax. Cardiomediastinal silhouette: Within normal limits. Other: No acute osseous abnormality is identified. Concrete Tile Machine Operator: [facility] Transcribe Date/Time: Nov 30 2017 7:15P Dictated by : BRAD BLAKE MD This examination was interpreted and the report reviewed and electronically signed by: BRAD BLAKE MD on Nov 30 2017 7:16PM EST Medical Decision Making: The patient had already received aspirin today. The patient will have repeat EKG and laboratory studies, the patient will have chest x-ray. Patient will be reassessed and reevaluated after the investigations. She has an abnormal echo from March 2017 with EF about 35%: ? CONCLUSIONS: 1. Normal left ventricular size with moderate systolic dysfunction and abnormal regional wall motion. The LV ejection fraction is visually estimated to be about 30 to 35%. There are regional wall motion abnormalities in the left anterior descending artery territory. The basal, mid anteroseptal, inferoseptal, and apil interiano are severely hypokinetic to akinetic. The apex appears to be dyskinetic in some views. Definitive contrast was not used for the purpose of the study. 2. Stage 1 diastolic dysfunction (impaired relaxation). 3. Normal right ventricular size, but mild systolic dysfunction, TAPSE is calculated at 1.4 cm and this was reduced. 4. No significant valvular abnormalities. Mild aortic sclerosis without significant stenosis. 5. No evidence of pulmonary hypertension by Doppler. 6. No pericardial cysts are visualized on the study. There is no significant pericardial effusion. Consider cardiac CT/MRI if clinically indicated for assessment of pericardial cyst. The patient had artery received aspirin. The patient was given sublingual nitroglycerin no significant change in the patient's pain. The patient had initial tachycardia noted. The patient's EKG showed sinus rhythm without evidence of ST segment elevation. Largely unchanged from previous EKG today. The patient's laboratory studies show a normal white blood cell count at 9.02. Hemoglobin hematocrit are 16.2 and 46.8. The patient had a CMP that was within normal limits other than a glucose of 260. The patient's high sensitivity troponin initially was 10. Repeat was 9. The patient's CK and MB are within normal limits. The patient had a probe BMP of 517. Coags were normal. Chest x-ray did not show any significant change. Heart score is 4. Recommended admission for observation. The patient does have abnormal echo from 2017. The patient was discussed with the hospitalist who had concerns about bringing the patient in due to the abnormal echo that was done in March 2017. I spoke with Dr. Sherman and he was comfortable with the patient coming into the hospital here. The patient will be admitted for further evaluation. Dr. Jackson did except the patient. Clinical Impression: Encounter Diagnosis ICD-10-CM 1. Chest pain, unspecified type R07.9 Condition at disposition: stable Disposition: ADMITTED TO: Regular nursing floor. The attending who evaluated and managed this patient was Dr. GARCIA Jarrett. SIGNATURE: Rafy Cavanaugh III, PABrian Attending Note I have personally performed a face to face assessment of the patient and have reviewed the PA/CUTTING INSPECTOR note. My jones findings include: History - Ms. Jackson is a 47 yo F w/ h/o HTN and hyperlipidemia and DM and smoking, likely MA (EF lower and ? Dyskinesis in LAD) w/out rx previously, now here w/ chest pain/dyspnea/LH/nausea, intermittently sweaty, nearly 24 hrs now. Went to [place] trop initially ok, ECG NSST changes, advised tx here, left AMA, now here. Exam - no distress Assessment/Plan - ECG NSR @ 96 bpm no STEMI L axis deviation NSST changes anterior leads, which have been there previously, though it looks a bit more c/w ? aneurysm (as on previous echo) presently; will do hs trop and reassess. Clinically, pain less likely ACS. Other additions or changes: None Signature: Allan Jarrett MD Date: 11/30/2017 Time: 7:05 PM Rafy Rashid (Lauren) Mao ROBLEDO 11/30/172104 Previous Version Sara Bryson, RN, RN 11/30/2017 6:45 PM Signed Pt presents to the ER tearful about being scared of chest pain she is having. Onset was 0200 this a.m. She was seen at [facility] ER earlier today and advised to be admitted for observation. Pt states she wanted to drive herself in after settling family arrangements. She indicates mid-sternal pain that is stabbing, aching, sharp, dull, and pressure all at the same time. She was given 4 baby ASA and morphine at [place], per pt. Medic at the bedside to lab and line. Sara Bryson RN, RN 11/30/2017 7:18 PM Signed Pt reports no relief of chest pain with nitro. SBP 125 to 109. Sara Bryson RN, RN 11/30/2017 9:26 PM Signed Report called to Patricio on 3S Fercho Osborne MD 11/30/2017 10:37 PM Signed DEPARTMENT OF HOSPITAL MEDICINE HISTORY AND PHYSICAL EXAM SERVICE DATE: 11/30/2017 SERVICE TIME: 9:48 PM Primary Care Physician: Uziel Conteh MD NIGHT AND WEEKEND COVERAGE: Nights: Please contact pager [phone]. Subjective HPI 47 Y F with PMH of diabetes, hyperlipidemia, hypertension, anxiety, depression, H/O pericardial effusion, systolic dysfunction, EF of 35 and 35% in 03/20, presents to the ED for evaluation of chest pain. The patient was seen in [place] ED earlier today and they wanted to admit but the patient left AGAINST MEDICAL ADVICE. The patient reports chest pain that started 2 AM this morning when she woke up to use the rest room, reports as crushing/sharp and punching type, non radiating, non exertional, gets worse with cough at times and stress, had some relief with heat pads in the morning and ASA but no response to nitro in the ED. She is very emotional when talking to her, reports she is under stress. She still c/o chest pain at this time and reports tender to touch. Reports chronic smoking about 30 yrs with 1 and pack per day. No H/O CAD in the past. No family H/O early CAD. PAST MEDICAL HISTORY Diagnosis Date - Diabetes mellitus - Diverticula of intestine - Hyperlipemia - Hypertension - Incisional hernia - Psychiatric disorder PAST SURGICAL HISTORY Procedure Laterality Date - APPENDECTOMY 2007 - DELIVERY ONLY , low transverse - COLONOSCOPY 2001? - DANDC, DIAG AND/OR THERAPEUTIC 10/17/12 - EGD W/O OR W/BRUSH/WASH 02/01/2016 EGD - LAPAROSCOPIC CHOLEYCYSTECTOMY 1998 Cholecystectomy, lap - LIGATE FALLOPIAN TUBE Tubal ligation - PAST SURGICAL HISTORY OF 2009 cysy removed from neck - REPAIR INCIS HERNIA W MESH 10/16/13 - REPAIR INCISIONAL HERNIA,REDUCIBLE 10/16/13 - SIGMOIDOSCOPY FLEX DIAG 02/01/2016 Sigmoidoscopy, flexible FAMILY HISTORY Problem Relation Age of Onset - Thyroid Mother Graves - Diabetes Mother - Hypertension Mother - Diabetes Maternal Grandmother - Diabetes Maternal Uncle - Diabetes Maternal Aunt Social History Substance Use Topics - Smoking status: Current Every Day Smoker Packs/day: 0.50 Years: 27.00 - Smokeless tobacco: Never Used - Alcohol use No MEDICATIONS: Reviewed ALLERGIES Allergen Reactions - Latex Itching Red and dry cracking skin Review of Systems Review of Systems REVIEW OF SYSTEMS: CONSTITUTIONAL: No fevers, chills, nightsweats, unintended weight loss HEENT: Denies frequent or severe heaches, nasal congestion/sinus symptoms, problematic allergy problems. EYES: No diplopia or blurry vision. CARDIOVASCULAR: + chest pain, dyspnea, palpitations, orthopnea, PND, ankle edema. PULM: No dyspnea, unexplained cough. GI: No dysphagia/odynophagia, problematic reflux, constipation, diarrhea, changes in stool habits, hematochezia, melena. : No new urinary complaints, including dysuria, gross hematuria or pyuria. NEURO: No new balance problems, peripheral weakness/paresthesias or numbness of concern. MUSC-SKEL: No new joint pain, swelling, or erythema. PSY: + depression, + anxiety or panic. INTEGUMENTARY: No new skin changes (rash, new or changing mole, new growth) Objective Physical Exam Performed BP 142/76 Pulse 100 Temp (Src) 98.2 (Oral) Resp 18 Ht 5' 7 (1.70m) Wt 185 lb (83.9kg) SpO2 96% LMP 10/27/2015 BMI 28.97 kg/(m2). Physical Exam Lines, Drains, and Airways Line Peripheral 11/30/17 1847 Short Left Antecubital 20 Gauge less than 1 day Reviewed lines, drains, airways. Will discuss with nurse and discontinue at discharge PHYSICAL EXAMINATION General: Alert and oriented, no distress, pleasant and cooperative. Heart: Regular, normal S1 and S2, no murmurs, rubs, or gallops Lungs: Clear to auscultation bilaterally Abdomen: Benign Extremities: Feet/ankles without edema, posterior tibial pulses full and symmetrical DATA: Diagnostic tests reviewed for today's visit: Most recent labs and imaging results. CBC, Coags, BMP, Mg, Phos Recent Labs 11/30/17 1845 11/30/17 1500 WBC 9.02 9.4 HB 16.2* 16.8* HCT 46.8* 49.6* PLT 247 261 INR 1.0 -- APTT 26.7 -- NA 137 136 K 4.1 3.9 CHLOR 102 102 CO2 23 26 BUN 5* 5* CREAT 0.61 0.61 GLUC 260* 324* CA 8.5 9.4 Abnormal echo from March 2017 with EF about 35%: ? CONCLUSIONS: 1. Normal left ventricular size with moderate systolic dysfunction and abnormal ?regional wall motion. ?The LV ejection fraction is visually estimated to be ?about 30 to 35%. ?There are regional wall motion abnormalities in the left ?anterior descending artery territory. ?The basal, mid anteroseptal, ?inferoseptal, and apil interiano are severely hypokinetic to akinetic. ?The apex ?appears to be dyskinetic in some views. ?Definitive contrast was not used for ?the purpose of the study. 2. Stage 1 diastolic dysfunction (impaired relaxation). 3. Normal right ventricular size, but mild systolic dysfunction, TAPSE is ?calculated at 1.4 cm and this was reduced. 4. No significant valvular abnormalities. ?Mild aortic sclerosis without ?significant stenosis. 5. No evidence of pulmonary hypertension by Doppler. 6. No pericardial cysts are visualized on the study. ?There is no significant ?pericardial effusion. ?Consider cardiac CT/MRI if clinically indicated for ?assessment of pericardial cyst. Assessment/Plan Principal Problem: Chest pain POA: Yes Assessment AND Plan: Chest pain is atypical in nature, more of musculoskeletal vs stress related Low suspicion for ACS EKG, CE x 2 high sensitivity troponin's are negative, CXR unremarkable Never Had stress test or [facility] Had abnormal ECHO in mar 2017 as above Heart score is 4, Dr. Sherman and he was comfortable with the patient coming into the hospital here. Keep on observation Telemetry CE x 2 Cant get ECHO over the weekend Consult cardiology Check Lipid panel control risk factors Morphine as needed for chest pain Continue ASA/start low dose BB/continue SELENE/statin Active Problems: Essential hypertension POA: Yes Assessment AND Plan: Continue SELENE, start low dose BB Depression POA: Yes Anxiety, POA, yes Assessment AND Plan: Continue zoloft Xanax PRN Out pt psych f/u Type 2 diabetes mellitus with complication, with long-term current use of insulin (HCC) POA: Yes Assessment AND Plan: continue lantus 40 units BID, start SSI Dyslipidemia POA: Yes Assessment AND Plan: Continue statin VTE Prophylaxis: Pneumatic Compression Device Disposition: Home Plan of care discussed with: Patient, ER physician, and RN SIGNATURE: Fercho Osborne MD PATIENT NAME: Trenton Jackson DATE: November 30, 2017 TIME: 9:48 PM PAGER/CONTACT #: [phone] Patricio Tate, RN, RN 12/01/2017 5:01 AM Addendum Nursing Progress Note Patient Name: Trenton Jackson Patient Location: [facility] [place]-[id number] Daily Note: 2200: Assumed care of pt. Pt resting in bed, visibly upset and crying. States she is just concerned and feeling overwhelmed by her health problems and over hungry from not eating all day. Pt would like food when diet entered. Pt states her pain level is at 3/10. Pt shown where to find call light, light and tv controls. 2300: Pt resting in bed. Complaints of pain 5/10. Pt nauseas, will administer pain meds per AUG. Call light within reach. 0100: Pt observed sleeping. Call light within reach. 0130: Pt nauseas and vomiting. Pt anxious about health. Given meds per MAR. 0300: Pt observed sleeping. 0500: Pt observed sleeping. This note was completed by: Patricio Tate RN Previous Version Jonna Boothe, RN, RN 12/01/2017 5:58 PM Addendum Nursing Progress Note Patient Name: Trenton Jackson Patient [id number] Daily Note: 0715: Assumed care of patient. Pt asleep with eyes closed. No signs of pain, SOB or distress. Will monitor. 0900: pt resting in bed with eyes open. Pt c/o 5/10 chest pain that is continuous. No SOB or distress noted. SR on Tele. 1100: Pt asleep with eyes closed. No signs of pain, SOB or distressed. Will monitor. 1145: Pt c/o 8/10 chest pain and feeling anxious about staying in the hospital. Will medicate per MAR. 1300: Pt resting in bed with eyes closed. No signs of pain or SOB. Will monitor. 1500: Pt resting in bed with eyes open. Pt c/o 3/10 pain without distress. No other needs at this time. 1700: Pt resting in bed with eyes open. Pt c/o 8/10 chest pain. Will medicate per MAR. Pt requested to have Lidocaine patch removed. This note was completed by: Jonna Boothe RN Previous Version Bety Dempsey RN, RN 12/01/2017 9:52 AM Signed CARE MANAGEMENT: ASSESSMENT AND DISCHARGE PLAN SERVICE DATE: 12/01/2017 SERVICE TIME: 9:48 AM PRIMARY CARE PHYSICIAN: Uziel Conteh MD Confirmed. Likes am any day for follow ups. 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 No Advance Directive: Current Advance Directive: None Combat Control Assisted with AD Completion: Yes Action: Education Provided Health Literacy: 1. How often do you need to have someone help you when you read instructions, pamphlets, or other written material from your doctor or pharmacy? Never - 1 2. How confident are you filling out medical forms by yourself? Extremely - 1 If Patient scores > 3 on either question, the following interventions were put into place: Use of plain language and active listening with Patient and family, Use concrete and specific phrases, avoid medical jargon, Forms of communication used with patient and family, Sit with Patient and Gave Patient the opportunity to ask questions FUNCTIONAL AND COGNITIVE/BEHAVIORAL PRIOR TO ADMISSION: Baseline Mental Status: Alert AND Oriented, Person, Place and Time Functional Status: Independent Does Patient Currently Receive Any Community Services or Home Care? None Equipment Prior to Admission: None Has the Patient Been in a Penitentiary Facility in the Past 30 days? No SOCIAL: Living Arrangement: Home Lives With: Spouse and two children Financial Resources: Employed: [employer] Primary Contact: Extended Emergency Contact Information Primary Emergency Contact: Curry Jackson Jr Address: [address] [place] [address] [facility] Mobile Relation: Spouse Secondary Emergency Contact: Rebecca Dueñas Address: [place] [address] [facility] Relation: Mother Supportive: Yes Other Important Patient Contacts: None Caregiver Assessment: Caregiver is ready, willing and able to meet the patient's needs as recommended by the inter-professional team? Yes Patient's transition needs and plan for meeting these needs: self care Does the patient have an acute stroke diagnosis, or has the patient had a stroke during this admission? No Medication Adherence: I am convinced of the importance of my prescription medication: Agree mostly - 0 I worry that my prescription medication will do more harm than good to me Disagree mostly - 0 I feel financially burdened by my [id number] expenses for my prescription medication: Disagree somewhat - 0 Patient is categorized as low risk < 2 Are you interested in bedside delivery of your medications? Yes , uses [facility] [place] Food Concerns: In the Last Month, Have You had Trouble Getting Food? No trouble getting food During the Last Month, Have You Worried Whether Your Food Would Run Out Before You Had Enough Money to Buy More? No Is the Patient Psychosocially Complex? No ASSESSMENT AND PLAN: Medical Needs: 2 or more chronic diseases Psychosocial Needs: None FREEDOM OF CHOICE EXPLAINED: Yes explained choices to patient POTENTIAL TRANSITION PLANS To Be Determined Bedside CHAYITO Coyle SIGNATURE: Bety Dempsey RN PATIENT NAME: Trenton Jackson DATE: December 01, 2017 TIME: 9:48 AM PAGER/CONTACT #: [phone] Jevon Sherman MD 12/01/2017 10:32 AM Signed CONSULT: CARDIOLOGY SERVICE SERVICE DATE: 12/01/2017 SERVICE TIME: 10:17 AM CONSULTING PHYSICIAN: Jevon Sherman MD PCP: Uziel Conteh MD ATTENDING: Lisa Bocanegra REASON FOR CONSULT: Chest Pain Subjective CHIEF COMPLAINT: Chest pain, unspecified type [R07.9] HISTORY OF PRESENT ILLNESS: Ms. Jackson is a 47 year old female who presents for evaluation of chest pain. She tells me that this chest pain started two days ago. It occurs with meals- she feels food gets stuck and then she has a pounding chest pressure and nausea; however, chest pain will also occur in the middle of the night and at other random times during the day as well. It is not associated with exertion. In the ER at [place] yesterday she had no ischemic changes on ECG, NSR, and negative Tn. She has a history of DM, is an active smoker, and had an abnormal echocardiogram last year showing LVEF 30% with an LAD territory wall motion abnormality with a dyskinetic apex. She has not seen a resume writer about this problem and was unaware of the echo findings- she thought that she was only being evaluated for a pericardial effusion. PAST MEDICAL HISTORY Diagnosis Date - Diabetes mellitus - Diverticula of intestine - Hyperlipemia - Hypertension - Incisional hernia - Psychiatric disorder PAST SURGICAL HISTORY Procedure Laterality Date - APPENDECTOMY 2007 - DELIVERY ONLY , low transverse - COLONOSCOPY 2001? - DANDC, DIAG AND/OR THERAPEUTIC 10/17/12 - EGD W/O OR W/BRUSH/WASH 02/01/2016 EGD - LAPAROSCOPIC CHOLEYCYSTECTOMY 1998 Cholecystectomy, lap - LIGATE FALLOPIAN TUBE Tubal ligation - PAST SURGICAL HISTORY OF 2009 cysy removed from neck - REPAIR INCIS HERNIA W MESH 10/16/13 - REPAIR INCISIONAL HERNIA,REDUCIBLE 10/16/13 - SIGMOIDOSCOPY FLEX DIAG 02/01/2016 Sigmoidoscopy, flexible FAMILY HISTORY Problem Relation Age of Onset - Thyroid Mother Graves - Diabetes Mother - Hypertension Mother - Diabetes Maternal Grandmother - Diabetes Maternal Uncle - Diabetes Maternal Aunt Social History Substance Use Topics - Smoking status: Current Every Day Smoker Packs/day: 0.50 Years: 27.00 - Smokeless tobacco: Never Used - Alcohol use No Prior to Admission Medications Prescriptions Last Dose Informant Patient Reported? Taking? SUMAtriptan (IMITREX) 100 mg tablet No No Sig: Take 1 tablet by mouth as needed. albuterol HFA (PROVENTIL HFA, VENTOLIN HFA) 90 mcg/actuation inhaler No No Sig: Inhale 2 Puffs as instructed every 4 hours as needed for Wheezing/Shortness of Breath. dicyclomine (BENTYL) 20 mg tablet No No Sig: Take 1 tablet by mouth every 6 hours. insulin aspart U-100 (NOVOLOG FLEXPEN U-100 INSULIN) 100 unit/mL inpn No No Sig: Inject 2 Units subcutaneously three times daily with meals. Per Sliding scale insulin glargine (LANTUS SOLOSTAR, BASAGLAR) 100 unit/mL (3 mL) inpn No No Sig: Inject 40 Units subcutaneously twice daily. insulin needles, DISPOSABLE, (UNIFINE PENTIPS) 31 gauge x 5/16 ndle No No Sig: Use with insulin injections lisinopril (ZESTRIL, PRINIVIL) 10 mg tablet No No Sig: Take 1 tablet by mouth once daily. omeprazole (PRILOSEC) 20 mg capsule No No Sig: Take 1 capsule by mouth once daily. promethazine (PHENERGAN) 12.5 mg tablet No No Sig: Take 1 tablet by mouth every 6 hours as needed for Nausea/Vomiting. sertraline (ZOLOFT) 25 mg tablet No No Sig: Take 1 tablet by mouth once daily. simvastatin (ZOCOR) 40 mg tablet No No Sig: Take 1 tablet by mouth daily at bedtime. Facility-Administered Medications: None Current hospital medications: lidocaine 5 % 1 Patch (LIDODERM) 1 Patch TRANSDERMAL DAILY lidocaine patch - REMOVE OTHER AT BEDTIME lidocaine - VERIFY PATCH OTHER q 8 H nitroglycerin sublingual 0.4 mg tab(s) (NITROQUICK) 0.4 mg SUBLINGUAL q 5 MIN PRN dicyclomine 20 mg tab(s) (BENTYL) 20 mg ORAL q 6 H simvastatin 40 mg tab(s) (ZOCOR) 40 mg ORAL AT BEDTIME lisinopril 10 mg tab(s) (ZESTRIL, PRINIVIL) 10 mg ORAL DAILY insulin glargine 40 Units injection (long acting) (LANTUS) 40 Units SUBCUTANEOUS BID pantoprazole DR 20 mg tab(s) (PROTONIX) 20 mg ORAL DAILY sertraline 25 mg tab(s) (ZOLOFT) 25 mg ORAL DAILY albuterol 2.5 mg /3 mL (0.083 %) 2.5 mg (PROVENTIL) 2.5 mg INHALATION q 4 H PRN promethazine 12.5 mg tab(s) (PHENERGAN) 12.5 mg ORAL q 6 H PRN aspirin, enteric coated 81 mg tab(s) (ASPIRIN, ENTERIC COATED) 81 mg ORAL DAILY nitroglycerin sublingual 0.4 mg tab(s) (NITROQUICK) 0.4 mg SUBLINGUAL q 5 MIN PRN morphine 2 mg injection 2 mg INTRAVENOUS q 4 H PRN dextrose 40 % 15 g 15 g ORAL PRN glucagon 1 mg injection (GLUCAGEN) 1 mg INTRAMUSCULAR PRN dextrose 50% in water 25 mL syringe 12.5 g INTRAVENOUS PRN insulin lispro injection (rapid acting) (HumaLOG) SUBCUTANEOUS w MEALS insulin lispro injection (rapid acting) (HumaLOG) SUBCUTANEOUS AT BEDTIME carvedilol 3.125 mg tab(s) (COREG) 3.125 mg ORAL BID w MEALS ALPRAZolam 0.5 mg tab(s) (XANAX) 0.5 mg ORAL BID PRN ALLERGIES Allergen Reactions - Latex Itching Red and dry cracking skin CARDIAC STATUS: Chest Pain: per HPI Dyspnea: Negative Ankle Edema: Negative Arrhythmia: Negative, Patient denies palpitations, lightheadedness, dizziness, syncope or near syncope. Functional Capacity: Average Activity includes Light activity REVIEW OF SYSTEMS: The following systems were reviewed with the patient, and are unremarkable other than as described below. SYSTEMIC: No fever, chills, or change in weight or appetite HEENT: No recent change in vision or hearing. CARDIOVASCULAR: No murmur, gallop. Denies chest pain or palpitations. : No recent hematuria or dysuria. SKIN: No recent itching or eruption. PSYCH: No recent active anxiety or depression. HEMATOLOGY/ONCOLOGY: No recent diagnosis of bleeding or cancer. ENDOCRINE: No recent polyuria or heat intolerance. NEURO: No recent TIA, stroke or seizures. RHEUMATOLOGY: No recent active connective tissue disease. Objective PHYSICAL EXAM: Pleasant, comfortable, not in acute distress. Awake, alert, oriented times 3. Moves all extremities. SKIN: No rash or lumps. HEENT: Normocephalic, face symmetrical. NECK: Supple, no JVD, no carotid bruit, no thyromegaly. LUNGS: Clear to auscultation bilaterally. CARDIAC: PMI present, RRR, S1 and S2, no S3 or S4, no additional heart sounds or murmurs. ABDOMEN: Soft, nontender, bowel sounds present. EXTREMITIES: No edema. PULSES: Peripheral pulses present. Body mass index is 28.31 kg/m?. O2 Therapy: Room Air No Data Recorded Patient Vitals for the past 48 hrs: BP Temp Temp src Pulse Resp SpO2 Height Weight 12/01/17 0748 129/81 36.5 ?C (97.7 ?F) Oral 91 16 97 % - - 12/01/17 0339 115/66 36.4 ?C (97.5 ?F) Oral 88 18 95 % - - 11/30/17 2353 137/90 36.8 ?C (98.2 ?F) Oral 97 18 97 % - - 11/30/17 2220 135/93 36.9 ?C (98.4 ?F) Oral 94 18 98 % - - 11/30/17 2200 - - - - - - - 82 kg (180 lb 12.4 oz) 11/30/172116 142/76 - - - - - - - 11/30/171958 124/76 36.8 ?C (98.2 ?F) Oral (!) 100 18 96 % - - 11/30/171917 109/64 - - (!) 105 - - - - 11/30/171915 118/70 - - (!) 100 - - - - 11/30/171848 125/80 - - (!) 108 18 98 % - - 11/30/171809 149/78 36.9 ?C (98.4 ?F) Oral (!) 113 18 97 % 170.2 cm (5' 7) 83.9 kg (185 lb) DATA: Diagnostic tests reviewed for today's visit: Most recent labs Most recent imaging Most recent EKG Past 72 Hour Labs: Recent Labs 12/01/17 0755 11/30/17184411/30/17 1500 CK -- -- 41* -- TROPT <0.010 < > -- -- TROPI -- -- -- <0.03 WBC -- -- 9.02 9.4 RBC -- -- 5.82* 6.15* HB -- -- 16.2* 16.8* HCT -- -- 46.8* 49.6* MCV -- -- 80.4 80.7* MCH -- -- 27.8 27.3 MCHC -- -- 34.6 33.9 RDWCV -- -- 13.3 -- PLT -- -- 247 261 MPV -- -- 9.9 10.1 NEUTP -- -- 60.4 -- LYMPHP -- -- 31.4 -- MONOP -- -- 6.2 -- EODINP -- -- 1.4 -- BASOP -- -- 0.6 -- ABSNEUT -- -- 5.45 -- ABSMONO -- -- 0.56 -- ABSEOSIN -- -- 0.13 -- ABSBASO -- -- 0.05 -- GLUC -- -- 260* 324* BUN -- -- 5* 5* CREAT -- -- 0.61 0.61 NA -- -- 137 136 K -- -- 4.1 3.9 CHLOR -- -- 102 102 CO2 -- -- 23 26 TPROT -- -- 6.5 -- ALB -- -- 3.5* -- CA -- -- 8.5 9.4 ALKPHOS -- -- 97 -- TBILI -- -- 0.7 -- AST -- -- 26 -- ALT -- -- 17 -- PTSEC -- -- 10.2 -- APTT -- -- 26.7 -- INR -- -- 1.0 -- < > = values in this interval not displayed. Last Lab Drawn: TSH 0.83 04/07/2015 Triglyceride 128 04/07/2015 HDL Cholesterol 40 04/07/2015 LDL 105 04/07/2015 Prior Cardiac Workup: echo 03/2017 CONCLUSIONS: 1. Normal left ventricular size with moderate systolic dysfunction and abnormal regional wall motion. The LV ejection fraction is visually estimated to be about 30 to 35%. There are regional wall motion abnormalities in the left anterior descending artery territory. The basal, mid anteroseptal, inferoseptal, and apical interiano are severely hypokinetic to akinetic. The apex appears to be dyskinetic in some views. Definitive contrast was not used for the purpose of the study. 2. Stage 1 diastolic dysfunction (impaired relaxation). 3. Normal right ventricular size, but mild systolic dysfunction, TAPSE is calculated at 1.4 cm and this was reduced. 4. No significant valvular abnormalities. Mild aortic sclerosis without significant stenosis. 5. No evidence of pulmonary hypertension by Doppler. 6. No pericardial cysts are visualized on the study. There is no significant pericardial effusion. Consider cardiac CT/MRI if clinically indicated for assessment of pericardial cyst. Impression/Recommendation s 1. Chest pain- this sounds atypical for angina, but she does have DM, is a smoker, and has a highly abnormal echo, so this could be anginal 2. Abnormal echo with LVEF 30% and LAD territory wall motion abnormality; she does not have exam or lab findings consistent with volume overload or low cardiac output 3. DM 4. Active smoker 5. HTN 6. Hx of pericardial cyst seen on CT scan 01/2017 Recommend: - continue aspirin and statin - continue ACEI and carvedilol - echo and stress test on Sunday - she will likely need LHC if former echo findings are corroborated by cardiac imaging - I told her that she cannot drink non-diet soda while in the hospital and needs to stop when she does home as well - smoking cessation Will continue to follow SIGNATURE: Jevon Sherman MD PATIENT NAME: Trenton Jackson DATE: December 01, 2017 TIME: 10:17 AM PAGER/CONTACT #: Lisa Bocanegra MD 12/02/2017 2:47 AM Signed INPATIENT PROGRESS NOTE SERVICE DATE: 12/01/2017 SERVICE TIME: 2.00PM Subjective CHIEF COMPLAINT: Patient still having chest pain. Reproducible on exam No fever,chills. Has chronic smokers cough . Current hospital medications: lidocaine 5 % 1 Patch (LIDODERM) 1 Patch TRANSDERMAL DAILY lidocaine patch - REMOVE OTHER AT BEDTIME lidocaine - VERIFY PATCH OTHER q 8 H nitroglycerin sublingual 0.4 mg tab(s) (NITROQUICK) 0.4 mg SUBLINGUAL q 5 MIN PRN dicyclomine 20 mg tab(s) (BENTYL) 20 mg ORAL q 6 H simvastatin 40 mg tab(s) (ZOCOR) 40 mg ORAL AT BEDTIME lisinopril 10 mg tab(s) (ZESTRIL, PRINIVIL) 10 mg ORAL DAILY insulin glargine 40 Units injection (long acting) (LANTUS) 40 Units SUBCUTANEOUS BID pantoprazole DR 20 mg tab(s) (PROTONIX) 20 mg ORAL DAILY sertraline 25 mg tab(s) (ZOLOFT) 25 mg ORAL DAILY albuterol 2.5 mg /3 mL (0.083 %) 2.5 mg (PROVENTIL) 2.5 mg INHALATION q 4 H PRN promethazine 12.5 mg tab(s) (PHENERGAN) 12.5 mg ORAL q 6 H PRN aspirin, enteric coated 81 mg tab(s) (ASPIRIN, ENTERIC COATED) 81 mg ORAL DAILY nitroglycerin sublingual 0.4 mg tab(s) (NITROQUICK) 0.4 mg SUBLINGUAL q 5 MIN PRN morphine 2 mg injection 2 mg INTRAVENOUS q 4 H PRN dextrose 40 % 15 g 15 g ORAL PRN glucagon 1 mg injection (GLUCAGEN) 1 mg INTRAMUSCULAR PRN dextrose 50% in water 25 mL syringe 12.5 g INTRAVENOUS PRN insulin lispro injection (rapid acting) (HumaLOG) SUBCUTANEOUS w MEALS insulin lispro injection (rapid acting) (HumaLOG) SUBCUTANEOUS AT BEDTIME carvedilol 3.125 mg tab(s) (COREG) 3.125 mg ORAL BID w MEALS ALPRAZolam 0.5 mg tab(s) (XANAX) 0.5 mg ORAL BID PRN Objective PHYSICAL EXAM: BP 112/73 Pulse 80 Temp (Src) 98.1 (Oral) Resp 16 Ht 5' 7 (1.70m) Wt 180 lb 12.4 oz (82.0kg) SpO2 97% LMP 10/27/2015 BMI 28.31 kg/(m2). Physical Exam Performed GENERAL: Alert, no distress, cooperative LUNGS: Lungs clear to auscultation, Good diaphragmatic excursion CHEST WALL:Tenderness on anterior chest wall CARDIAC: Normal S1 and S2; no rubs, murmurs, or gallops ABDOMEN: Abdomen soft, epigastric discomfort , BS normal, No masses EXTREMITIES: No edema NEURO: Awake,alert,oriented x3 DATA: Diagnostic tests reviewed for today's visit: Most recent labs and imaging results. Assessment/Plan Principal Problem: Chest pain POA: Yes Assessment AND Plan: Chest pain is atypical in nature, more of musculoskeletal vs stress related. However,patient is a high risk patient. (HTN,HL,smoker,uncontroll ed diabetes) Heart score is 4, Had abnormal ECHO in mar 2017 which shows wall motion abnormality . Never Had stress test ,LHC or repeat echo- tests which Canot be done here On the weekend . States she was told she has a hx of pericardial effusion in the past but its too small and no further rx needed. EKG, trops x 3, high sensitivity troponin's are negative, CXR unremarkable Dr. Sherman was comfortable with the patient coming into the hospital here. Continue telemetry PRN morphine.Add lidocaine patch as still having pain. Lipid panel pending Await cardiology input BB started .Continue ASA/ /continue SELENE/statin ? ? Active Problems: Essential hypertension POA: Yes Assessment AND Plan: Continue SELENE, low dose BB started . Continue To monitor Await cardiology input ? Depression POA: Yes Anxiety, POA, yes Assessment AND Plan: Continue zoloft Xanax PRN Out pt psych f/u ? Uncontrolled Type 2 diabetes mellitus with complication, with long-term current use of insulin (HCC) POA: Yes Assessment AND Plan: HBAIC 12.6 on 08/06/17 Fair control continue lantus 40 units BID, start SSI Reasses am and adjust if needed ? Dyslipidemia POA: Yes Assessment AND Plan: Lipid panel pending Continue statin Cardiomyopathy. Unclear if ischemic or non ischemic Await cardiology input Medication and Non-Pharmacologic VTE Prophylaxis/Anticoagulant s Anticoagulant AND Antiplatelet Medications Start Dose Route Frequency Ordered Stop 12/01/17 0900 aspirin, enteric coated 81 mg tab(s) (ASPIRIN, ENTERIC COATED) 81 mg ORAL DAILY 11/30/176 -- 11/30/17 2200 pneumatic compression stockings (sc,oh) VTE Prophylaxis: VTE prophylaxis appropriate SIGNATURE: Lisa Bocanegra MD PATIENT NAME: Trenton Jackson DATE: December 01, 2017 TIME: 2:46 PM PAGER: [phone] Patricio Tate, RN, RN 12/02/2017 6:32 AM Addendum Nursing Progress Note Patient Name: Trenton Jackson Patient Location: [id number] Daily Note: 1915: Assumed care of pt. Pt resting in bed. No complaints at this time. Call light within reach. 2100: Pt resting in bed. Complains of moderate pain, wants to wait until ready to go to sleep to take prn pain meds. Pt states she is hungry as she did not each much dinner, pt given crackers and peanut butter. Pt belongings and call light within reach. 2300: Pt resting in bed, complaint of pain 01/11, will medicate per AUG. Call light within reach. 0100: Pt observed sleeping. Call light within reach. 0300: Pt observed sleeping. Call light within reach. 0400: Pt tele monitor reading santa, pt observed sweating profusely. Glucose 84, normally 200's. Mcclain juice and johnson crackers given. Glucose up to 149. Pt feeling slightly better. Will continue to monitor. 0500: Pt observed sleeping. Unable to obtain oral or axillary temp to this point. Will obtain rectal temp. Call light within reach. This note was completed by: Patricio Tate, CHAYITO Previous Version Patricio Tate, RN, RN 12/02/2017 4:59 AM Signed Nursing Progress Note Patient Name: Trenton Jackson Patient Location: [facility]4/[id number] Event(s) / Intervention Note: The patient was observed having the following problems: Pt heart monitor registering santa, pt observed sweating profusely, feeling lightheaded and nauseous. Pt glucose at 84, pt normally runs over 200 at home. The time of the event occurred at: 0354. The following intervention(s) were initiated: Pt given 2 orange juices and johnson crackers. After the initiated interventions, the following observation(s) were made: patient appears improved. Pt glucose 149, pt states she is cold but feeling a little better. This note was completed by: Patricio Tate, CHAYITO Boothe RN, RN 12/02/2017 2:09 PM Signed Nursing Progress Note Patient Name: Trenton Jackson Patient Location: [facility]4/[id number] Daily Note: 0715: Assumed care of patient. Assessment complete. Pt resting in bed with eyes open. Pt states she had some chest pain overnight and sweating from her blood sugar being low. No signs of distress or SOB. Will monitor. 0900: Pt resting in bed with eyes open. Pt states she was feeling nauseous still after taking medication for nausea and experiencing some anxiety after a stress full phone call. Will monitor. 1100: Pt resting in bed with eyes open. Will medicate patient for pain and anxiety. 1300: Pt asleep with eyes closed. No signs of pain or distress. This note was completed by: CHAYITO Yancey MD 12/03/2017 7:05 AM Addendum INPATIENT PROGRESS NOTE SERVICE DATE: 12/02/2017 SERVICE TIME: 1.00PM Subjective CHIEF COMPLAINT: Patient laying down,sleepy but rousable Still has chest pain- unchanged. No fever,chills,N/V/D,dizzin ess. Current hospital medications: metoprolol tartrate (short acting) 12.5 mg tab(s) (LOPRESSOR) 12.5 mg ORAL q 12 H NaCl 0.9% 250 mL iv bolus 250 mL INTRAVENOUS ONCE pantoprazole DR 40 mg tab(s) (PROTONIX) 40 mg ORAL BID AC (0600/1600) sucralfate 1 g tab(s) (CARAFATE) 1 g ORAL TID atorvastatin 40 mg tab(s) (LIPITOR) 40 mg ORAL AT BEDTIME nitroglycerin sublingual 0.4 mg tab(s) (NITROQUICK) 0.4 mg SUBLINGUAL q 5 MIN PRN dicyclomine 20 mg tab(s) (BENTYL) 20 mg ORAL q 6 H lisinopril 10 mg tab(s) (ZESTRIL, PRINIVIL) 10 mg ORAL DAILY insulin glargine 40 Units injection (long acting) (LANTUS) 40 Units SUBCUTANEOUS BID sertraline 25 mg tab(s) (ZOLOFT) 25 mg ORAL DAILY albuterol 2.5 mg /3 mL (0.083 %) 2.5 mg (PROVENTIL) 2.5 mg INHALATION q 4 H PRN promethazine 12.5 mg tab(s) (PHENERGAN) 12.5 mg ORAL q 6 H PRN aspirin, enteric coated 81 mg tab(s) (ASPIRIN, ENTERIC COATED) 81 mg ORAL DAILY nitroglycerin sublingual 0.4 mg tab(s) (NITROQUICK) 0.4 mg SUBLINGUAL q 5 MIN PRN morphine 2 mg injection 2 mg INTRAVENOUS q 4 H PRN dextrose 40 % 15 g 15 g ORAL PRN glucagon 1 mg injection (GLUCAGEN) 1 mg INTRAMUSCULAR PRN dextrose 50% in water 25 mL syringe 12.5 g INTRAVENOUS PRN insulin lispro injection (rapid acting) (HumaLOG) SUBCUTANEOUS w MEALS insulin lispro injection (rapid acting) (HumaLOG) SUBCUTANEOUS AT BEDTIME ALPRAZolam 0.5 mg tab(s) (XANAX) 0.5 mg ORAL BID PRN Objective PHYSICAL EXAM: BP 97/58 Pulse 71 Temp (Src) 97.5 (Oral) Resp 18 Ht 5' 7 (1.70m) Wt 180 lb 12.4 oz (82.0kg) SpO2 99% LMP 10/27/2015 BMI 28.31 kg/(m2). Physical Exam Performed GENERAL: Alert, no distress, cooperative CHEST WALL:Anterior chest wall tenderness LUNGS: Lungs clear to auscultation, Good diaphragmatic excursion CARDIAC: Normal S1 and S2; no rubs, murmurs, or gallops ABDOMEN: Abdomen soft,epigastric tenderness, no rebound nor guarding , BS normal. EXTREMITIES:No edema NEURO:Awake,alert,oriente d x3 DATA: Diagnostic tests reviewed for today's visit: Most recent labs and imaging results. Assessment/Plan Active Problems: ??Chest pain POA: Yes ?Assessment AND?Plan: Persistent ,stable Chest pain is atypical in nature, more of musculoskeletal vs stress related. However,patient is a high risk patient. (HTN,HL,smoker,uncontroll ed diabetes) Heart score is 4, Had abnormal ECHO in mar 2017 which shows wall motion abnormality .EF 30 to 35%. Never Had stress test ,LHC or repeat echo- tests which Canot be done here On the weekend . 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 lidocaine patch not helping so d/c Hx of GERD.Try protonix,carafate to see if it helps Lipid panel abnormal while on zocor.,start lipitor ,d/c zocor started on coreg which I changed to metoprolol due to BP drop. .Continue ASA/ /continue SELENE/statin Check esr, crp,procal. For stress test and echo am by cardiology. ? ? Hypotension. Patient denies any symptoms - although laying in bed most times . Hypotension likely due to medication -coreg which I d/c and started her on lopressor which does not drop BP that fast. Like coreg. Parameters placed on BP and IVF N/S bolus given Continue to monitor . ??Essential hypertension POA: Yes ?Assessment AND?Plan: Ok to continue BP meds but with parameters Continue To monitor ? ??Depression POA: Yes Anxiety, POA, yes ?Assessment AND?Plan: Continue zoloft Xanax PRN Out pt psych f/u ? Uncontrolled ??Type 2 diabetes mellitus with complication, with long-term current use of insulin (HCC) POA: Yes ?Assessment AND?Plan: HBAIC 12.6 on 08/06/17 continue lantus 40 units BID, start SSI Home dose can be resumed after stress test am,oral hypoglycemics can also be added am after stress test And dose adjusted if needed . Consider endo consult for discharge planning ? ??Dyslipidemia POA: Yes ?Assessment AND?Plan: Lipid panel shows uncontrolled nos -trig 179,HDL 31,LDL 110, T/C 177 Stopped zocor as not working and started patient on lipitor. She will need repeat lipid panel in 4 weeks or more. ? Cardiomyopathy with EF 30-35% Unclear if ischemic or non ischemic As per cardiology , For echo and stress test am Leucocytosis/erythrocytos is Leucocytosis new. Erythrocytosis slightly worse . Patient denies any new symptoms She is a smoker Will Check esr,crp,procal Await repeat labs after she received IVF ?Dr Handy ?will assume care tomorrow 12/03/17 Medication and Non-Pharmacologic VTE Prophylaxis/Anticoagulant s Anticoagulant AND Antiplatelet Medications Start Dose Route Frequency Ordered Stop 12/01/17 0900 aspirin, enteric coated 81 mg tab(s) (ASPIRIN, ENTERIC COATED) 81 mg ORAL DAILY 11/30/17 2156 -- 11/30/17 2200 pneumatic compression stockings (fl,oh) VTE Prophylaxis: VTE prophylaxis appropriate SIGNATURE: Lisa Bocanegra MD PATIENT NAME: Trenton Jackson DATE: December 02, 2017 TIME: 1:07 PM PAGER: [phone] Previous Version Sara Johnson, RN, RN 12/02/2017 6:26 PM Addendum Nursing Progress Note Patient Name: Trenton Jackson Patient Location: [place] [id number] Daily Note:1555 - Assumed care of pt. Pt awoken for assessment see flowsheet. Pt C/O mid-sternal CP 7/10 om scale. Manual B/P- 90/62. 1620 - Resting in bed with eyes closed. Awoken and given PO Protonix at this time. 1625- Called spoke to Dr. Bocanegra and informed of manual B/P after IV bolus as well as pt C/O mid-sternal chest pain 7/10 on scale. Per MD believes pain is from reflux and new B/P medication. Informed that IV Morphine is for moderate pain, per MD if pt is not asking for pain medication hold at this time d/t low B/P. Pt is not asking for pain medication. 1650 - Resting in bed with eyes closed. 1725 - FSBS AC dinner was 210 and medicated with insulin SSC as per MD order at this time. No C/O. This note was completed by: Sara Johnson RN Previous Version Jevon Sherman MD 12/02/2017 4:52 PM Signed PROGRESS NOTE CARDIOLOGY SERVICE SERVICE DATE: 12/02/2017 SERVICE TIME: 4:49 PM Subjective INTERIM HISTORY: she continues to have chest pain, worse when she coughs Objective PHYSICAL EXAM: Body mass index is 28.31 kg/m?. O2 Therapy: Room Air No Data Recorded Patient Vitals for the past 24 hrs: BP Temp Temp src Pulse Resp SpO2 12/02/17 1555 92/60 - - - - - 12/02/17 1507 89/57 36.4 ?C (97.5 ?F) Oral (!) 57 16 92 % 12/02/17 1123 97/58 36.4 ?C (97.5 ?F) Oral 71 18 99 % 12/02/17 0753 90/67 - - 66 18 100 % 12/02/17 0505 - (!) 34.2 ?C (93.5 ?F) Rectal - - - 12/02/17 0337 /60 - - (!) 51 16 95 % 12/01/17 2346 (!) 91/46 36.5 ?C (97.7 ?F) Oral 63 16 96 % 12/01/17 1944 /55 36.4 ?C (97.5 ?F) Oral 71 18 100 % Pleasant, comfortable, not in acute distress. Awake, alert, oriented times 3. Moves all extremities. SKIN: No rash or lumps. HEENT: Normocephalic, face symmetrical. NECK: Supple, no JVD, no carotid bruit, no thyromegaly. LUNGS: Clear to auscultation bilaterally. CARDIAC: PMI present, RRR, S1 and S2, no S3 or S4, no additional heart sounds or murmurs. ABDOMEN: Soft, nontender, bowel sounds present. EXTREMITIES: No edema. PULSES: Peripheral pulses present. MEDICATIONS: Current hospital medications: metoprolol tartrate (short acting) 12.5 mg tab(s) (LOPRESSOR) 12.5 mg ORAL q [address] 40 mg tab(s) (PROTONIX) 40 mg ORAL BID AC (0600/1600) sucralfate 1 g tab(s) (CARAFATE) 1 g ORAL TID atorvastatin 40 mg tab(s) (LIPITOR) 40 mg ORAL AT BEDTIME morphine 2 mg injection 2 mg INTRAVENOUS q 4 H PRN nitroglycerin sublingual 0.4 mg tab(s) (NITROQUICK) 0.4 mg SUBLINGUAL q 5 MIN PRN dicyclomine 20 mg tab(s) (BENTYL) 20 mg ORAL q 6 H lisinopril 10 mg tab(s) (ZESTRIL, PRINIVIL) 10 mg ORAL DAILY insulin glargine 40 Units injection (long acting) (LANTUS) 40 Units SUBCUTANEOUS BID sertraline 25 mg tab(s) (ZOLOFT) 25 mg ORAL DAILY albuterol 2.5 mg /3 mL (0.083 %) 2.5 mg (PROVENTIL) 2.5 mg INHALATION q 4 H PRN promethazine 12.5 mg tab(s) (PHENERGAN) 12.5 mg ORAL q 6 H PRN aspirin, enteric coated 81 mg tab(s) (ASPIRIN, ENTERIC COATED) 81 mg ORAL DAILY nitroglycerin sublingual 0.4 mg tab(s) (NITROQUICK) 0.4 mg SUBLINGUAL q 5 MIN PRN dextrose 40 % 15 g 15 g ORAL PRN glucagon 1 mg injection (GLUCAGEN) 1 mg INTRAMUSCULAR PRN dextrose 50% in water 25 mL syringe 12.5 g INTRAVENOUS PRN insulin lispro injection (rapid acting) (HumaLOG) SUBCUTANEOUS w MEALS insulin lispro injection (rapid acting) (HumaLOG) SUBCUTANEOUS AT BEDTIME ALPRAZolam 0.5 mg tab(s) (XANAX) 0.5 mg ORAL BID PRN DATA: Diagnostic tests reviewed for today's visit: Most recent labs Most recent imaging Most recent EKG Past 72 Hour Labs: Recent Labs 12/02/17 0724 12/01/17 0755 11/30/17 1845 11/30/17 1500 CK -- -- -- 41* -- -- CRP 0.2 -- -- -- -- -- TROPT -- <0.010 < > -- -- -- TROPI -- -- -- -- -- <0.03 WBC 12.44* -- -- 9.02 -- 9.4 RBC 6.13* -- -- 5.82* -- 6.15* HB 16.9* -- -- 16.2* < > 16.8* HCT 48.7* -- -- 46.8* -- 49.6* MCV 79.4* -- -- 80.4 -- 80.7* MCH 27.6 -- -- 27.8 -- 27.3 MCHC 34.7 -- -- 34.6 -- 33.9 RDWCV 13.4 -- -- 13.3 < > -- PLT 215 -- -- 247 -- 261 MPV 10.7 -- -- 9.9 -- 10.1 NEUTP -- -- -- 60.4 -- -- LYMPHP -- -- -- 31.4 -- -- MONOP -- -- -- 6.2 -- -- EODINP -- -- -- 1.4 -- -- BASOP -- -- -- 0.6 -- -- ABSNEUT -- -- -- 5.45 -- -- ABSMONO -- -- -- 0.56 -- -- ABSEOSIN -- -- -- 0.13 -- -- ABSBASO -- -- -- 0.05 -- -- GLUC 185* -- -- 260* -- 324* BUN 8 -- -- 5* -- 5* CREAT 0.61 -- -- 0.61 -- 0.61 NA 135* -- -- 137 -- 136 K 4.8 -- -- 4.1 -- 3.9 CHLOR 99 -- -- 102 -- 102 CO2 23 -- -- 23 -- 26 TPROT 6.2* -- -- 6.5 < > -- ALB 3.2* -- -- 3.5* < > -- CA 9.2 -- -- 8.5 -- 9.4 ALKPHOS 92 -- -- 97 < > -- TBILI 0.7 -- -- 0.7 < > -- AST 23 -- -- 26 < > -- ALT 14 -- -- 17 < > -- PTSEC -- -- -- 10.2 -- -- APTT -- -- -- 26.7 -- -- INR -- -- -- 1.0 -- -- MG 1.9 -- -- -- -- -- < > = values in this interval not displayed. Last Lab Drawn: TSH 0.83 04/07/2015 Triglyceride 179 12/01/2017 HDL Cholesterol 31 12/01/2017 LDL 110 12/01/2017 Cholesterol, Total 177 12/01/2017 Assessment/Plan 1. Chest pain- this sounds atypical for angina, but she does have DM, is a smoker, and has a highly abnormal echo, so this could be anginal 2. Abnormal echo with LVEF 30% and LAD territory wall motion abnormality; she does not have exam or lab findings consistent with volume overload or low cardiac output 3. DM 4. Active smoker 5. HTN 6. Hx of pericardial cyst seen on CT scan 01/2017 ? Recommend: - continue aspirin and statin - continue ACEI and carvedilol - echo and stress test on Sunday - she will likely need LHC if former echo findings are corroborated by cardiac imaging - NPO after midnight - smoking cessation ? Will continue to follow SIGNATURE: Jevon Sherman MD PATIENT NAME: Trenton Jackson DATE: December 02, 2017 TIME: 4:49 PM PAGER/CONTACT #: Flora Varela RN, RN 12/03/2017 4:25 AM Signed Nursing Progress Note Patient Name: Trenton Jackson Patient Location: [facility] [id number] Daily Note:2009-Pt on phone, requesting pain med, for pain 6/10 chest, see AUG 2199- Pt refusing lantus as she will be npo after midnight and was symptomatic last night when not npo of BS in 80's. Dr Sorensen suggests half dose but pt still refusing. 0000- Sleeping SR on tele. 0200- sleeping SR on tele 0400- Sleeping SR on tele 0600 sleeping SR on tele This note was completed by: CHAYITO López MD 12/03/2017 8:34 PM Unsigned Book[facility]- Stress Test TRENTON JACKSON : 1970 AGE: 47 SEX: F ACCTNUM: [id number] [facility]: [facility] LOCATION: [id number] ATTENDING PHYSICIAN: Dex Fernandez M.D. DATE OF STUDY: 12/03/2017 EXERCISE PORTION OF A NUCLEAR STRESS TEST REASON FOR STRESS TEST: Chest pain, abnormal echocardiogram. TEST DESCRIPTION: The patient was brought to the stress lab. She had chest pain in the center of her chest at rest. Her heart rate was 73, resting blood pressure 106/66. She then proceeded to exercise on the Cale protocol. She only exercised for a total exercise time of 3 minutes and 13 seconds, who is unable to continue on the treadmill secondary to worsening chest pain. Review of the ECG tracings shows sinus rhythm at baseline and no ischemic changes at her peak heart rate of 127 beats per minute. The test was switched to a vasodilator stress test. Please see separate reporting for interpretation of that stress test and of nuclear imaging. Jevon Sherman M.D. Cardiovascular Medicine [id number] /[id number] Jazzmine Galvan RN, RN 12/03/2017 6:59 PM Addendum Nursing Progress Note Patient Name: Trenton Jackson Patient Location: [place] [id number] Daily Note: 0700: Assumed care of pt. Pt called RN into room and noted to be extremely anxious and crying. RN gave medication. Telemetry SR. Pt states she always has this mid chest pain. 0900: Pt off floor to cardiology. Telemetry off at this time. Pt feels better after medication. 1100: pt off floor 1300: Pt off floor 1500: Pt arrived back to floor pt states she has a headache and she has chest pain and is nausea. RN took vitals and gave pain medication. No other needs at this time. 1600: pt off floor. 1700: Pt arrived back to floor. Telemetry replaced. No other needs at this time. Pt noted to be extremely anxious. This note was completed by: Jazzmine Galvan RN Previous Version Iqra Webster RN, RN 12/03/2017 11:44 AM Signed CARE MANAGEMENT PROGRESS NOTE SERVICE DATE: 12/03/2017 SERVICE TIME: 11:44 AM LOS: 0 days Needs Prior to Discharge: To Be Determined Attempted to meet patient at bedside, patient off floor for stress test. CM will return as time allows. SIGNATURE: Iqra Webster RN PATIENT NAME: Trenton Jackson DATE: December 03, 2017 TIME: 11:44 AM PAGER/CONTACT #: [phone] Jevon Sherman MD 12/03/2017 5:30 PM Signed PROGRESS NOTE CARDIOLOGY SERVICE SERVICE DATE: 12/03/2017 SERVICE TIME: 5:25 PM Subjective INTERIM HISTORY: she had chest pain while on the treadmill today, was unable to finish the stress test; she was changed to a Lexiscan nuclear stress Objective PHYSICAL EXAM: Body mass index is 28.31 kg/m?. O2 Therapy: Room Air No Data Recorded Patient Vitals for the past 24 hrs: BP Temp Temp src Pulse Resp SpO2 12/03/17 1526 118/71 36.7 ?C (98.1 ?F) Oral 80 16 100 % 12/03/17 0744 90/58 36.5 ?C (97.7 ?F) Oral 68 19 100 % 12/03/17 0316 106/72 36.6 ?C (97.9 ?F) Oral 61 16 97 % 12/02/17 2342 (!) 80/40 36.4 ?C (97.5 ?F) Oral 68 20 95 % 12/02/17 1943 91/52 36.4 ?C (97.5 ?F) Oral 74 14 99 % Pleasant, comfortable, not in acute distress. Awake, alert, oriented times 3. Moves all extremities. SKIN: No rash or lumps. HEENT: Normocephalic, face symmetrical. NECK: Supple, no JVD, no carotid bruit, no thyromegaly. LUNGS: Clear to auscultation bilaterally. CARDIAC: PMI present, RRR, S1 and S2, no S3 or S4, no additional heart sounds or murmurs. ABDOMEN: Soft, nontender, bowel sounds present. EXTREMITIES: No edema. PULSES: Peripheral pulses present. MEDICATIONS: Current hospital medications: atorvastatin 80 mg tab(s) (LIPITOR) 80 mg ORAL AT BEDTIME [START ON 12/04/2017] lisinopril 5 mg tab(s) (ZESTRIL, PRINIVIL) 5 mg ORAL DAILY metoprolol succinate ER 25 mg tab(s) (TOPROL XL) 25 mg ORAL AT BEDTIME pantoprazole DR 40 mg tab(s) (PROTONIX) 40 mg ORAL BID AC (0600/1600) sucralfate 1 g tab(s) (CARAFATE) 1 g ORAL TID morphine 2 mg injection 2 mg INTRAVENOUS q 4 H PRN nitroglycerin sublingual 0.4 mg tab(s) (NITROQUICK) 0.4 mg SUBLINGUAL q 5 MIN PRN dicyclomine 20 mg tab(s) (BENTYL) 20 mg ORAL q 6 H insulin glargine 40 Units injection (long acting) (LANTUS) 40 Units SUBCUTANEOUS BID sertraline 25 mg tab(s) (ZOLOFT) 25 mg ORAL DAILY albuterol 2.5 mg /3 mL (0.083 %) 2.5 mg (PROVENTIL) 2.5 mg INHALATION q 4 H PRN promethazine 12.5 mg tab(s) (PHENERGAN) 12.5 mg ORAL q 6 H PRN aspirin, enteric coated 81 mg tab(s) (ASPIRIN, ENTERIC COATED) 81 mg ORAL DAILY nitroglycerin sublingual 0.4 mg tab(s) (NITROQUICK) 0.4 mg SUBLINGUAL q 5 MIN PRN dextrose 40 % 15 g 15 g ORAL PRN glucagon 1 mg injection (GLUCAGEN) 1 mg INTRAMUSCULAR PRN dextrose 50% in water 25 mL syringe 12.5 g INTRAVENOUS PRN insulin lispro injection (rapid acting) (HumaLOG) SUBCUTANEOUS w MEALS insulin lispro injection (rapid acting) (HumaLOG) SUBCUTANEOUS AT BEDTIME ALPRAZolam 0.5 mg tab(s) (XANAX) 0.5 mg ORAL BID PRN DATA: Diagnostic tests reviewed for today's visit: Most recent labs Most recent imaging Most recent EKG Echo today 12/03/17 CONCLUSIONS: - Technically difficult exam due to body habitus. - Exam indication: Chest Pain - There is a resting wall motion abnormality in the territory of the LAD. - The left ventricle is normal in size. There is no left ventricular hypertrophy. Left ventricular systolic function is moderately decreased. EF = 36 ? 5% (2D biplane) Definity contrast used for endocardial border detection. Grade I left ventricular diastolic dysfunction. - The right ventricle is normal in size. Right ventricular systolic function is normal. - There are no significant valvular abnormalities. - Exam was compared with the prior OUTSIDE echocardiographic exam performed on 03/10/2017. There is no significant change. ? Nuclear stress test 12/03/2017 CONCLUSIONS: ?1. SPECT Perfusion Study: Abnormal. ?2. There is no scintigraphic evidence for inducible ischemia. ?3. There is a large (>20%) fixed perfusion defect in the LAD territory. ?4. Fair functional capacity for age and gender. ?5. Left ventricle is mildly dilated. The left ventricle systolic function is severely decreased. ?6. Right ventricle is normal in size. The right ventricle systolic function is normal. ?7. This is a high risk scan. ?1 ?LVEF % 21 Past 72 Hour Labs: Recent Labs 12/03/17 0605 12/02/17 0724 12/01/17 0755 11/30/17 0295 CK -- -- -- -- -- 41* CRP -- 0.2 -- -- -- -- TROPT -- -- -- <0.010 < > -- WBC 9.13 12.44* -- -- -- 9.02 RBC 5.58* 6.13* -- -- -- 5.82* HB 15.3 16.9* -- -- -- 16.2* HCT 46.0 48.7* -- -- -- 46.8* MCV 82.4 79.4* -- -- -- 80.4 MCH 27.4 27.6 -- -- -- 27.8 MCHC 33.3 34.7 -- -- -- 34.6 RDWCV 13.2 13.4 -- -- -- 13.3 PLT 224 215 -- -- -- 247 MPV 10.1 10.7 -- -- -- 9.9 NEUTP -- -- -- -- -- 60.4 LYMPHP -- -- -- -- -- 31.4 MONOP -- -- -- -- -- 6.2 EODINP -- -- -- -- -- 1.4 BASOP -- -- -- -- -- 0.6 ABSNEUT -- -- -- -- -- 5.45 ABSMONO -- -- -- -- -- 0.56 ABSEOSIN -- -- -- -- -- 0.13 ABSBASO -- -- -- -- -- 0.05 GLUC 76 185* -- -- -- 260* BUN 11 8 -- -- -- 5* CREAT 0.70 0.61 -- -- -- 0.61 NA 139 135* -- -- -- 137 K 4.3 4.8 -- -- -- 4.1 CHLOR 99 99 -- -- -- 102 CO2 30 23 -- -- -- 23 TPROT 6.0* 6.2* -- -- -- 6.5 ALB 3.3* 3.2* -- -- -- 3.5* CA 9.0 9.2 -- -- -- 8.5 ALKPHOS 83 92 -- -- -- 97 TBILI 0.5 0.7 -- -- -- 0.7 AST 15 23 -- -- -- 26 ALT 13 14 -- -- -- 17 PTSEC -- -- -- -- -- 10.2 APTT -- -- -- -- -- 26.7 INR -- -- -- -- -- 1.0 MG 1.8 1.9 < > -- -- -- < > = values in this interval not displayed. Last Lab Drawn: TSH 0.83 04/07/2015 Triglyceride 179 12/01/2017 HDL Cholesterol 31 12/01/2017 LDL 110 12/01/2017 Cholesterol, Total 177 12/01/2017 Assessment/Plan 1. Chest pain- this sounds atypical for angina, but she does have DM, is a smoker, and has a highly abnormal echo, so this could be anginal; it also intensified on the treadmill today 2. Chronic systolic heart failure with LAD territory wall motion abnormality 3. Abnormal stress test suggesting LAD territory infarction 4. DM 5. Active smoker 6. HTN 7. Hx of pericardial cyst seen on CT scan 01/2017 ? Recommend: - continue aspirin and statin - increase atorvastatin to 80 mg - continue ACEI - add metoprolol - C tomorrow - NPO after midnight - smoking cessation ? Will continue to follow SIGNATURE: Jevon Sherman MD PATIENT NAME: Trenton Jackson DATE: December 03, 2017 TIME: 5:25 PM PAGER/CONTACT #: Dex Handy MD 12/03/2017 9:03 PM Signed HOSPITAL MEDICINE PROGRESS NOTE Name: Trenton Jackson SERVICE DATE: 12/03/2017 SERVICE TIME: 8:36 PM LOCATION / ROOM: [place] [id number] Hospital Medicine/Primary Attending: Dex Handy MD NIGHT COVERAGE BETWEEN 5.30P-7.30A Page [phone] ASSESSMENT AND PLAN Active Hospital Problems Diagnosis - Chest pain - Leucocytosis - Erythrocytosis - Hypotension - Cardiomyopathy (HCC) - Smoker - Dyslipidemia - Chest pain at rest - Type 2 diabetes mellitus with complication, with long-term current use of insulin (HCC) - Depression - Essential hypertension ??Chest pain ?Assessment AND?Plan: Persistent ,stable Chest pain is atypical in nature, more of musculoskeletal vs stress related. However,patient is a high risk patient. (HTN,HL,smoker,uncontroll ed diabetes) Heart score is 4, Had abnormal ECHO in mar 2017 which shows wall motion abnormality .EF?30 to 35%. Never Had stress test ,LHC or repeat echo- tests which ?Canot be done here ?On the ?weekend . States she was told she has a hx of pericardial effusion in the past but its too small and no further rx needed.CT scan 01/2017 shows pericardial cyst EKG, trops?x 3,?high sensitivity troponin's are negative, CXR unremarkable Continue telemetry PRN morphine. lidocaine patch not helping so d/c Hx of GERD.Try protonix,carafate to see if it helps Lipid panel abnormal while on zocor.,start lipitor ,d/c zocor started on coreg which I changed to metoprolol due to BP drop. .Continue ASA/ /continue SELENE/statin Check esr, crp,procal. Stress test Nuclear stress test shows high risk scan with large >20% fixed perfusion defect in the LAD area. Echo shows EF 36 % LVEF with grade I diastolic dysfunction. Patient might need to be transferred to [facility] for further work up - pending LV heart cath in am. ? Hypotension. Patient denies any symptoms - although laying in bed most times . Hypotension likely due to medication -coreg which I d/c and started her on lopressor which does not drop BP that fast. Like coreg. Parameters placed on BP and IVF N/S bolus given Continue to monitor . ? Essential hypertension Ok to continue BP meds but with parameters Continue to monitor ? ? Depression Anxiety, POA, yes ?Assessment AND?Plan: Continue zoloft Xanax PRN Out pt psych f/u ? Uncontrolled type 2 diabetes mellitus with complication, with long-term current use of insulin ?Assessment AND?Plan: HBAIC 12.6 on 08/06/17 continue lantus 40 units BID, start SSI Home dose can be resumed after stress test am,oral hypoglycemics can also be added am after stress test And dose adjusted if needed . Consider endo consult for discharge planning ? Dyslipidemia ?Assessment AND?Plan: Lipid panel shows uncontrolled nos -trig 179,HDL 31,LDL 110, T/C 177 Stopped zocor as not working and started patient on lipitor. She will need repeat lipid panel in 4 weeks or more. ? Cardiomyopathy with EF 30-35% Unclear if ischemic or non ischemic As per cardiology for echo and stress test - as above ? Leucocytosis/erythrocytos is Leucocytosis new. Erythrocytosis slightly worse . Patient denies any new symptoms She is a smoker Will Check esr,crp,procal Await repeat labs after she received IVF SUBJECTIVE INTERVAL HPI: Feels ok, but still chest pain. No fever, chills, cp nor palpitations. No events overnight MEDICATIONS: Reviewed Current Facility-Administered Medications: atorvastatin 80 mg tab(s) (LIPITOR) 80 mg ORAL AT BEDTIME Jevon Sherman [START ON 12/04/2017] lisinopril 5 mg tab(s) (ZESTRIL, PRINIVIL) 5 mg ORAL DAILY Jevon Sherman metoprolol succinate ER 25 mg tab(s) (TOPROL XL) 25 mg ORAL AT BEDTIME Jevon Sherman pantoprazole DR 40 mg tab(s) (PROTONIX) 40 mg ORAL BID AC (0600/1600) Lisa Lozada Chukwuani 40 mg at 12/03/17 1523 sucralfate 1 g tab(s) (CARAFATE) 1 g ORAL TID Lisa Lozada Chukwuani 1 g at 12/03/17 1523 morphine 2 mg injection 2 mg INTRAVENOUS q 4 H PRN Lisa Formankwuani 2 mg at 12/03/17 1545 nitroglycerin sublingual 0.4 mg tab(s) (NITROQUICK) 0.4 mg SUBLINGUAL q 5 MIN PRN Rafy H (Pa-C) Mao III 0.4 mg at 11/30/17 191 dicyclomine 20 mg tab(s) (BENTYL) 20 mg ORAL q 6 H Fercho Dilma 20 mg at 12/03/17 1523 insulin glargine 40 Units injection (long acting) (LANTUS) 40 Units SUBCUTANEOUS BID Fercho Dilma 40 Units at 12/03/17 1523 sertraline 25 mg tab(s) (ZOLOFT) 25 mg ORAL DAILY Fercho Dilma 25 mg at 12/03/17 0853 albuterol 2.5 mg /3 mL (0.083 %) 2.5 mg (PROVENTIL) 2.5 mg INHALATION q 4 H PRN Fercho Dilma promethazine 12.5 mg tab(s) (PHENERGAN) 12.5 mg ORAL q 6 H PRN Fercho Dilma 12.5 mg at 12/03/17 1550 aspirin, enteric coated 81 mg tab(s) (ASPIRIN, ENTERIC COATED) 81 mg ORAL DAILY Fercho Dilma 81 mg at 12/03/17 0853 nitroglycerin sublingual 0.4 mg tab(s) (NITROQUICK) 0.4 mg SUBLINGUAL q 5 MIN PRN Fercho Dilma dextrose 40 % 15 g 15 g ORAL PRN Fercho Dilma Or glucagon 1 mg injection (GLUCAGEN) 1 mg INTRAMUSCULAR PRN Fercho Dilma Or dextrose 50% in water 25 mL syringe 12.5 g INTRAVENOUS PRN Fercho Dilma insulin lispro injection (rapid acting) (HumaLOG) SUBCUTANEOUS w MEALS Fercho Dilma 3 Units at 12/03/17 1839 insulin lispro injection (rapid acting) (HumaLOG) SUBCUTANEOUS AT BEDTIME Fercho Dilma 2 Units at 12/02/172012 ALPRAZolam 0.5 mg tab(s) (XANAX) 0.5 mg ORAL BID PRN Fercho Dilma 0.5 mg at 12/03/17 0640 OBJECTIVE PHYSICAL EXAM: BP 101/58 Pulse 72 Temp (Src) 98.4 (Oral) Resp 16 Ht 5' 7 (1.70m) Wt 180 lb 12.4 oz (82.0kg) SpO2 100% LMP 10/27/2015 BMI 28.31 kg/(m2). GENERAL: Obese, Alert, Mild Distress, Cooperative SKIN: Skin color, texture, turgor normal. No rashes or lesions. EYES: PERRLA, EOMI OROPHARYNX: Lips, mucosa, and tongue normal. Teeth and gums normal. Oropharynx normal. NECK: No jugulovenous distention, No carotid bruits, Carotid pulse normal contour, Supple LUNGS: Lungs clear to auscultation, Good diaphragmatic excursion CARDIAC: Normal S1 and S2; no rubs, murmurs, or gallops ABDOMEN: Abdomen soft, non-tender, BS normal, No masses or organomegaly EXTREMITIES: Extremities normal, no deformities, edema, clubbing or skin discoloration. Good capillary refill., No ulcers NEURO: Gait normal. Reflexes normal and symmetric. Sensation grossly intact, Cranial nerves II-XII intact PULSES: 2+ radial, 2+ carotid DATA: Diagnostic tests reviewed for today's visit: Most recent labs CBC: WBC 9.13 12/03/2017 HGB 15.3 12/03/2017 Hematocrit 46.0 12/03/2017 Platelet Count 224 12/03/2017 CMP: Sodium 139 12/03/2017 Potassium 4.3 12/03/2017 BUN 11 12/03/2017 Creatinine 0.70 12/03/2017 Glucose 76 12/03/2017 Chloride 99 12/03/2017 CO2 30 12/03/2017 VTE Prophylaxis: Pneumatic Compression Device Disposition: Home vs main campus for further work up for CAD.. Plan of care discussed with: Patient SIGNATURE: Dex Handy MD DATE: December 03, 2017 TIME: 8:36 PM Barb Ramey RN, RN 12/03/2017 9:59 PM Signed Nursing Progress Note Patient Name: Trenton Jackson Patient Location: [address]- Daily Note: 2155- Dr Nava updated on pt medication request and HS blood sugar. New orders received. This note was completed by: Barb Ramey, RN Jevon Sherman MD 12/04/2017 11:15 AM Signed CARDIAC CATHETERIZATION RISK ASSESSMENT PATIENT NAME: Trenton Jackson SERVICE DATE: 12/04/2017 SERVICE TIME: 11:14 AM No Critical left main stenosis or equivalent ischemia suggested by an early positive ischemic response on exercise testing i.e. Abnormal horizontal or down sloping ST depression with all of the following: -onset at a heart rate of < 120 (if not on beta blockers) or < 6.5 METS -Magnitude > 2.0 mm of depression -Post exercise duration > 6 minutes and depression in multiple leads No Abnormal systolic blood pressure response during progressive exercise with a sustained decrease of >10 mm HG or flat blood pressure response at less than 130 mm HG, with or without associated EKG evidence of ischemia. No Unstable angina pectoris that cannot be stabilized medically before catheterization or recurrent angina at rest refractory to maximal medical treatment. No Unstable or acute myocardial infarction i.e. -Acute on-going q-wave myocardial infarction with persistent pain or unstable hemodynamics, except when appropriate emergency catheter-based intervention is required. -Acute q-wave or non q-wave myocardial infarction with persistent or recurrent angina refractory to medical therapy when emergency therapeutic catheterization is considered imminent. No Critical aortic stenosis defined by current echo-Doppler criteria (i.e. mean gradient greater than fifty millimeters of mercury, valve area less than seventy-five hundredths (.75) square centimeters, or a mean gradient less than fifty millimeters of mercury in the setting of left ventricular dysfunction). No Uncompensated congestive heart failure refractory to medical management. No Reverse intra-cardiac shunts (i.e. Eisenmenger syndrome). No Known severe pulmonary hypertension. No Uncontrolled ventricular arrhythmias. No Severe valvular dysfunction, especially in the setting of depressed left ventricular performance. No Require percutaneous coronary interventions, including percutaneous transluminal coronary angioplasty (PTCA) or another non-surgical revascularization procedure. These procedures shall not be performed without on-site open heart surgical standby. No Requires other non-therapeutic, except right heart ablation, OR high-risk procedures such as transseptal catheterization or direct ventricular puncture. No Patients less than 22 years of age. SIGNATURE: Jevon Sherman MD DATE: December 04, 2017 TIME: 11:14 AM The following are the [facility] Criteria for High Risk Catheterization: Patients with high-risk conditions listed above may require emergency catheter-based therapeutic interventions or open heart surgery. Hence, they shall undergo cardiac catheterization only in a catheterization laboratory that has open heart surgical support available on-site, (i.e., accessible from the catheterization laboratory or by [facility]). Progress Notes (INTM AG LODI ): Bhumi Junior LPN 11/23/2017 9:11 AM Signed Message left on pt's voicemail following up on ER visit 11/20/17. Requested return call for update, to schedule appt, if pt desires. Bhumi Junior LPN Normal [facility] High Sens Troponin Ton 11-30 High Sensitivity THEO 9 ng/L Normal <12 [facility] Comment on above: Result Comment: When assessing risk for acute coronary syndromes: In patients undergoing blood draw greater than or equal to 2 hours from symptom onset, with history of very low to moderate risk and non-ischemic ECG, an initial hs-Troponin T less than 12 ng/L AND a 1 hour delta hs-Troponin T less than 3 ng/L should be considered very low risk for 30 day MACE. Performed By: #### H STNT ####[facility] [id number] [place], [place] [id number] High Sensitivity THEO 10 ng/L Normal <12 [facility] Comment on above: Result Comment: When assessing risk for acute coronary syndromes: In patients undergoing blood draw greater than or equal to 2 hours from symptom onset, with history of very low to moderate risk and non-ischemic ECG, an initial hs-Troponin T less than 12 ng/L AND a 1 hour delta hs-Troponin T less than 3 ng/L should be considered very low risk for 30 day MACE. Performed By: #### H STNT #### [facility] Laboratory [address] [place] [address] NT Pro BNPon 11-30-2017 Protein mass conc 517 pg/mL High <125 [facility] Comment on above: Performed By: #### N TBNP, CKCKMB #### [facility] Laboratory [address] [facility] [phone] Protimeon 11-30-2017 Prothrombin time (PT) Coag time (PPP) 10.2 s Normal 9.7-13.0 [facility] Comment on above: Performed By: #### C BCDIF, PT, PTT, CMP #### [facility] Laboratory [address] [facility] [phone] Prothrombin time (PT) Coag time (PPP) 1.0 s Normal 0.9-1.3 [facility] Comment on above: Result Comment: Charissa min K Antagonist (VKA) Therapeutic Range: INR 2 to 3 (Target INR of 2.5) Note: For patients treated with VKA drugs, such as warfarin, the [employer] 2012 Guideline recommends a therapeutic INR range of 2 to 3 (target INR of 2.5). This recommendation includes high-risk patients with antiphospholipid syndrome with previous arterial or venous thromboembolism, current-generation mechanical or bioprosthetic aortic heart valve replacement. Note: Patients with mechanical aortic valve replacement and additional risk factors for thromboembolic events (atrial fibrillation, previous thromboembolism, LV dysfunction, hypercoagulable conditions) or an older generation mechanical AVR (i.e., ball in-Cage) or any mechanical MVR should have a INR therapeutic range of 2.5 to 3.5 (target INR of 3). Rowan GH, et al. Chest 2012, 141:7S-47S Sampson SOMMERS, et al. [facility] 2017, 70: 252-289 Performed By: #### C BCDIF, PT, PTT, CMP #### [facility] Laboratory [address] [facility] [phone] XR CHEST 1V FRONTAL PORTon 0 11-30-2017 XR CHEST 1V FRONTAL PORT * * *Final Report* * * DATE OF EXAM: Nov 30 2017 6:56PM MDX [id number] - XR CHEST 1V FRONTAL PORT / PROCEDURE REASON: Chest pain or SOB, pleurisy or effusion suspected * * * * Physician Interpretation * * * * EXAMINATION: CHEST RADIOGRAPH (PORTABLE SINGLE VIEW AP) Exam Date/Time: 11/30/2017 6:56 PM Clinical History: Chest pain or SOB, pleurisy or effusion suspected MQ: [id number] Comparison: None RESULT: See impression. IMPRESSION: Lines, tubes, and devices: None. Lungs and pleura: No consolidation, pleural effusion or pneumothorax. Cardiomediastinal silhouette: Within normal limits. Other: No acute osseous abnormality is identified. Concrete Tile Machine Operator: PSCB Transcribe Date/Time: Nov 30 2017 7:15P Dictated by : BRAD BLAKE MD This examination was interpreted and the report reviewed and electronically signed by: BRAD BLAKE MD on Nov 30 2017 7:16PM EST [id number] Normal [facility] Influenza virus A and B and SARS-CoV-2 (COVID-19) Ag panel - Upper respiratory specim SARS-CoV-2 & FLU Antigen (Rapid) Influenzae [facility] Work Phone: Vital Signs Date Time Vital Sign Value Performing Clinician Facility 12-12-2024 18:17-0400 Body temperature 98.5 [degF] Zohreh Mckeon SERVICE DESK DIRECTOR-C Work Phone: [phone] [place] [address] 12-12-2024 18:17-0400 Diastolic blood pressure 91 mm[Hg] Zohreh Mckeon SERVICE DESK DIRECTOR-C Work Phone: [phone] [place] [address] 12-12-2024 18:17-0400 Heart rate 97 /min Zohreh Mckeon SERVICE DESK DIRECTOR-C Work Phone: [phone] [place] [address] 12-12-2024 18:17-0400 Respiratory rate 18 /min Zohreh Mckeon SERVICE DESK DIRECTOR-C Work Phone: [phone] [place] [address] 12-12-2024 18:17-0400 SaO2% (BldA) [Mass fraction] 98 % Zohreh Mckeon SERVICE DESK DIRECTOR-C Work Phone: [phone] [place] [address] 12-12-2024 18:17-0400 Systolic blood pressure 152 mm[Hg] Zohreh Mckeon SERVICE DESK DIRECTOR-C Work Phone: [phone] [place] [address] 12-12-2024 13:08-0400 Body height 167.64 cm Zohreh Mckeon SERVICE DESK DIRECTOR-C Work Phone: [phone] [place] [address] 09-29-2024 16:59-0400 Body temperature 97.7 [degF] [facility] Work Phone: [phone] [place] [address] 09-29-2024 16:59-0400 Diastolic blood pressure 80 mm[Hg] [facility] Work Phone: [phone] [place] [address] 09-29-2024 16:59-0400 Heart rate 133 /min [facility] Work Phone: [phone] [place] [address] 09-29-2024 16:59-0400 Respiratory rate 15 /min [facility] Work Phone: [phone] [place] [address] 09-29-2024 16:59-0400 SaO2% (BldA) [Mass fraction] 95 % [facility] Work Phone: [phone] [place] [address] 09-29-2024 16:59-0400 Systolic blood pressure 149 mm[Hg] [facility] Work Phone: [phone] [address] [place] [address] 09-29-2024 10:16-0400 Body height 170.18 cm [facility] Work Phone: 7(814)687-562990 [place] [address] 09-29-2024 10:16-0400 Body mass index (BMI) [Ratio] 28 kg/m2 [facility] Work Phone: 6(745)686-587890 [place] [address] 09-29-2024 10:16-0400 Body weight 81.4 kg [facility] Work Phone: 0(150)930-091290 [place] [address] 09-21-2024 17:11-0400 Body temperature 97.9 [degF] [facility] Work Phone: 3(742)014-635190 [place] [address] 09-21-2024 17:11-0400 Diastolic blood pressure 102 mm[Hg] [facility] Work Phone: 7(629)074-300590 [place] [address] 09-21-2024 17:11-0400 Heart rate 110 /min [facility] Work Phone: 0(254)751-690590 [place] [address] 09-21-2024 17:11-0400 Respiratory rate 16 /min [facility] Work Phone: 2(006)893-376990 [place] [address] 09-21-2024 17:11-0400 SaO2% (BldA) [Mass fraction] 98 % [facility] Work Phone: 7(667)565-607590 [place] [address] 09-21-2024 17:11-0400 Systolic blood pressure 139 mm[Hg] [facility] Work Phone: 8(387)814-054090 [place] [address] 09-21-2024 12:16-0400 Body height 170.18 cm [facility] Work Phone: 3(881)988-802890 [place] [address] 09-21-2024 12:16-0400 Body mass index (BMI) [Ratio] 28.4 kg/m2 [facility] Work Phone: 7(499)137-781990 [place] [address] 09-21-2024 12:16-0400 Body weight 82.3 kg [facility] Work Phone: 7(096)425-681490 [place] [address] 09-16-2024 15:35-0400 Diastolic blood pressure 94 mm[Hg] [facility] Work Phone: 4(637)808-663090 [place] [address] 09-16-2024 15:35-0400 Heart rate 110 /min [facility] Work Phone: 6(393)210-875590 [place] [address] 09-16-2024 15:35-0400 SaO2% (BldA) [Mass fraction] 98 % [facility] Work Phone: 4(425)372-865790 [place] [address] 09-16-2024 15:35-0400 Systolic blood pressure 160 mm[Hg] [facility] Work Phone: 3(242)365-418990 [place] [address] 09-16-2024 14:31-0400 Body temperature 97.2 [degF] [facility] Work Phone: 5(875)164-698090 [place] [address] 09-16-2024 14:31-0400 Respiratory rate 18 /min [facility] Work Phone: 0(285)972-227390 [place] [address] 09-16-2024 03:10-0400 Body mass index (BMI) [Ratio] 28.7 kg/m2 [facility] Work Phone: 4(104)344-575790 [place] [address] 09-16-2024 03:10-0400 Body weight 83.1 kg [facility] Work Phone: 6(956)034-199890 [place] [address] 09-11-2024 10:56-0400 Body height 170.18 cm [facility] Work Phone: 8(772)129-140690 [place] [address] 09-07-2024 21:00-0400 Diastolic blood pressure 79 mm[Hg] [facility] Work Phone: 5(395)738-533390 [place] [address] 09-07-2024 21:00-0400 Heart rate 101 /min [facility] Work Phone: 7(950)601-277290 [place] [address] 09-07-2024 21:00-0400 Respiratory rate 10 /min [facility] Work Phone: 0(503)799-969390 [place] [address] 09-07-2024 21:00-0400 SaO2% (BldA) [Mass fraction] 99 % [facility] Work Phone: 5(168)197-341590 [place] [address] 09-07-2024 21:00-0400 Systolic blood pressure 143 mm[Hg] [facility] Work Phone: 3(986)845-812690 [place] [address] 09-07-2024 15:52-0400 Body height 170.18 cm [facility] Work Phone: 0(914)480-713190 [place] [address] 09-07-2024 15:52-0400 Body mass index (BMI) [Ratio] 26.9 kg/m2 [facility] Work Phone: 7(719)195-113490 [place] [address] 09-07-2024 15:52-0400 Body temperature 97.4 [degF] [facility] Work Phone: 6(735)718-931290 [place] [address] 09-07-2024 15:52-0400 Body weight 77.9 kg [facility] Work Phone: 5(556)494-681190 [place] [address] 09-05-2024 15:24-0400 Body temperature 97.7 [degF] [facility] Work Phone: 3(030)007-785190 [place] [address] 09-05-2024 15:24-0400 Diastolic blood pressure 62 mm[Hg] [facility] Work Phone: 2(506)750-948590 [place] [address] 09-05-2024 15:24-0400 Heart rate 90 /min [facility] Work Phone: 5(915)887-895890 [place] [address] 09-05-2024 15:24-0400 Respiratory rate 15 /min [facility] Work Phone: 6(504)485-083890 [place] [address] 09-05-2024 15:24-0400 SaO2% (BldA) [Mass fraction] 96 % [facility] Work Phone: 8(912)466-938290 [place] [address] 09-05-2024 15:24-0400 Systolic blood pressure 100 mm[Hg] [facility] Work Phone: 9(411)419-039190 [place] [address] 09-05-2024 10:29-0400 Body height 170.18 cm [facility] Work Phone: 9(363)303-452990 [place] [address] 09-05-2024 10:29-0400 Body mass index (BMI) [Ratio] 27.2 kg/m2 [facility] Work Phone: 9(186)441-144190 [place] [address] 09-05-2024 10:29-0400 Body weight 78.9 kg [facility] Work Phone: 9(570)345-209690 [place] [address] 09-02-2024 12:46-0400 Body temperature 98 [degF] [facility] Work Phone: 1(994)387-229790 [place] [address] 09-02-2024 12:46-0400 Diastolic blood pressure 78 mm[Hg] [facility] Work Phone: 3(967)983-319590 [place] [address] 09-02-2024 12:46-0400 Heart rate 60 /min [facility] Work Phone: 3(403)172-254290 [place] [address] 09-02-2024 12:46-0400 Respiratory rate 13 /min [facility] Work Phone: 1(155)401-994790 [place] [address] 09-02-2024 12:46-0400 SaO2% (BldA) [Mass fraction] 95 % [facility] Work Phone: 6(011)723-002090 [place] [address] 09-02-2024 12:46-0400 Systolic blood pressure 112 mm[Hg] [facility] Work Phone: 4(368)749-050290 [place] [address] 09-02-2024 12:00-0400 Heart rate 96 /min [facility] Work Phone: 1(566)652-030790 [place] [address] 09-02-2024 12:00-0400 Respiratory rate 17 /min [facility] Work Phone: 0(849)540-062190 [place] [address] 09-02-2024 12:00-0400 SaO2% (BldA) [Mass fraction] 97 % [facility] Work Phone: 8(816)463-296190 [place] [address] 09-02-2024 12:00-0400 Systolic blood pressure 144 mm[Hg] [facility] Work Phone: 0(127)870-604890 [place] [address] 09-02-2024 06:00-0400 Body mass index (BMI) [Ratio] 27.7 kg/m2 [facility] Work Phone: 6(639)476-779590 [place] [address] 09-02-2024 06:00-0400 Body weight 80.1 kg [facility] Work Phone: 5(383)914-614490 [place] [address] 08-30-2024 15:46-0400 Body height 170.18 cm [facility] Work Phone: 4(241)208-697890 [place] [address] 08-26-2024 20:00-0400 Diastolic blood pressure 69 mm[Hg] [facility] Work Phone: 9(006)405-004590 [place] [address] 08-26-2024 20:00-0400 Heart rate 98 /min [facility] Work Phone: 0(819)189-139090 [place] [address] 08-26-2024 20:00-0400 Systolic blood pressure 129 mm[Hg] [facility] Work Phone: 8(822)440-785190 [place] [address] 08-26-2024 19:09-0400 Body temperature 98 [degF] [facility] Work Phone: 9(587)442-892290 [place] [address] 08-26-2024 19:09-0400 Respiratory rate 16 /min [facility] Work Phone: 5(372)621-532690 [place] [address] 08-26-2024 19:09-0400 SaO2% (BldA) [Mass fraction] 97 % [facility] Work Phone: 0(338)116-358090 [place] [address] 08-26-2024 10:08-0400 Body height 170.18 cm [facility] Work Phone: 2(077)630-269190 [place] [address] 08-26-2024 10:08-0400 Body mass index (BMI) [Ratio] 28.8 kg/m2 [facility] Work Phone: 1(953)493-914490 [place] [address] 08-26-2024 10:08-0400 Body weight 83.6 kg [facility] Work Phone: 7(347)381-782790 [place] [address] 08-01-2024 20:58-0500 Heart rate 101 /min [facility] Work Phone: 5(817)456-631990 [place] [address] 08-01-2024 20:58-0500 Respiratory rate 22 /min [facility] Work Phone: 1(719)758-100790 [place] [address] 08-01-2024 20:58-0500 SaO2% (BldA) [Mass fraction] 99 % [facility] Work Phone: 0(401)319-611090 [place] [address] 08-01-2024 19:00-0500 Diastolic blood pressure 76 mm[Hg] [facility] Work Phone: 5(429)333-469490 [place] [address] 08-01-2024 19:00-0500 Systolic blood pressure 134 mm[Hg] [facility] Work Phone: 9(752)527-297290 [place] [address] 08-01-2024 17:00-0500 Body temperature 98.4 [degF] [facility] Work Phone: 8(618)669-136790 [place] [address] 08-01-2024 13:46-0500 Body mass index (BMI) [Ratio] 27.9 kg/m2 [facility] Work Phone: 7(165)356-786490 [place] [address] 08-01-2024 13:46-0500 Body weight 80.9 kg [facility] Work Phone: 4(543)695-953090 [place] [address] 07-11-2024 12:40-0500 Body mass index (BMI) [Ratio] 26.6 kg/m2 [facility] Work Phone: 7(503)730-812790 [place] [address] 07-11-2024 12:40-0500 Body temperature 96 [degF] [facility] Work Phone: 0(297)888-233890 [place] [address] 07-11-2024 12:40-0500 Body weight 77.11 kg [facility] Work Phone: 8(824)843-851890 [place] [address] 07-11-2024 12:40-0500 Diastolic blood pressure 83 mm[Hg] [facility] Work Phone: 7(788)048-037190 [place] [address] 07-11-2024 12:40-0500 Heart rate 94 /min [facility] Work Phone: 2(148)474-796790 [place] [address] 07-11-2024 12:40-0500 Respiratory rate 16 /min [facility] Work Phone: 5(791)911-113490 [place] [address] 07-11-2024 12:40-0500 SaO2% (BldA) [Mass fraction] 98 % [facility] Work Phone: 2(411)796-657090 [place] [address] 07-11-2024 12:40-0500 Systolic blood pressure 154 mm[Hg] [facility] Work Phone: 7(815)931-287590 [place] [address] 07-10-2024 12:46-0500 Body temperature 96.4 [degF] [facility] Work Phone: 1(374)194-384190 [place] [address] 07-10-2024 12:46-0500 Diastolic blood pressure 63 mm[Hg] [facility] Work Phone: 3(738)311-474190 [place] [address] 07-10-2024 12:46-0500 Heart rate 91 /min [facility] Work Phone: 7(182)137-946990 [place] [address] 07-10-2024 12:46-0500 Respiratory rate 16 /min [facility] Work Phone: 1(862)161-455490 [place] [address] 07-10-2024 12:46-0500 SaO2% (BldA) [Mass fraction] 97 % [facility] Work Phone: 6(293)849-969890 [place] [address] 07-10-2024 12:46-0500 Systolic blood pressure 118 mm[Hg] [facility] Work Phone: 1(415)573-670590 [place] [address] 07-07-2024 12:29-0500 Body temperature 97 [degF] [facility] Work Phone: 5(150)041-896990 [place] [address] 07-07-2024 12:29-0500 Diastolic blood pressure 59 mm[Hg] [facility] Work Phone: 0(582)403-772390 [place] [address] 07-07-2024 12:29-0500 Heart rate 65 /min [facility] Work Phone: 3(965)220-319190 [place] [address] 07-07-2024 12:29-0500 Respiratory rate 16 /min [facility] Work Phone: 7(113)472-048590 [place] [address] 07-07-2024 12:29-0500 SaO2% (BldA) [Mass fraction] 99 % [facility] Work Phone: 2(443)862-702690 [place] [address] 07-07-2024 12:29-0500 Systolic blood pressure 107 mm[Hg] [facility] Work Phone: 6(260)426-304690 [place] [address] 07-05-2024 11:27-0500 Body temperature 95.9 [degF] [facility] Work Phone: 6(773)396-726690 [place] [address] 07-05-2024 11:27-0500 Diastolic blood pressure 83 mm[Hg] [facility] Work Phone: 5(680)416-969190 [place] [address] 07-05-2024 11:27-0500 Heart rate 96 /min [facility] Work Phone: 0(334)335-390890 [place] [address] 07-05-2024 11:27-0500 Respiratory rate 16 /min [facility] Work Phone: 6(978)506-453190 [place] [address] 07-05-2024 11:27-0500 SaO2% (BldA) [Mass fraction] 94 % [facility] Work Phone: 4(873)719-681590 [place] [address] 07-05-2024 11:27-0500 Systolic blood pressure 142 mm[Hg] [facility] Work Phone: 9(261)174-984490 [place] [address] 07-04-2024 12:57-0500 Body mass index (BMI) [Ratio] 26.6 kg/m2 [facility] Work Phone: 7(966)342-737690 [place] [address] 07-04-2024 12:57-0500 Body temperature 96.5 [degF] [facility] Work Phone: 5(958)674-705090 [place] [address] 07-04-2024 12:57-0500 Body weight 77.11 kg [facility] Work Phone: 8(852)885-386290 [place] [address] 07-04-2024 12:57-0500 Diastolic blood pressure 69 mm[Hg] [facility] Work Phone: 8(131)055-417190 [place] [address] 07-04-2024 12:57-0500 Heart rate 97 /min [facility] Work Phone: 2(202)647-664490 [place] [address] 07-04-2024 12:57-0500 Respiratory rate 16 /min [facility] Work Phone: 9(686)548-635290 [place] [address] 07-04-2024 12:57-0500 SaO2% (BldA) [Mass fraction] 100 % [facility] Work Phone: 8(191)769-259190 [place] [address] 07-04-2024 12:57-0500 Systolic blood pressure 128 mm[Hg] [facility] Work Phone: 0(576)500-869990 [place] [address] 07-03-2024 13:17-0500 Body temperature 97.3 [degF] [facility] Work Phone: 7(884)169-691490 [place] [address] 07-03-2024 13:17-0500 Diastolic blood pressure 57 mm[Hg] [facility] Work Phone: 7(762)711-730790 [place] [address] 07-03-2024 13:17-0500 Heart rate 85 /min [facility] Work Phone: 9(610)398-112390 [place] [address] 07-03-2024 13:17-0500 Respiratory rate 18 /min [facility] Work Phone: 3(388)853-467290 [place] [address] 07-03-2024 13:17-0500 SaO2% (BldA) [Mass fraction] 100 % [facility] Work Phone: 9(984)651-417690 [place] [address] 07-03-2024 13:17-0500 Systolic blood pressure 107 mm[Hg] [facility] Work Phone: 6(794)840-681090 [place] [address] 07-03-2024 03:57-0500 Body mass index (BMI) [Ratio] 28.8 kg/m2 [facility] Work Phone: 2(176)657-285190 [place] [address] 07-03-2024 03:57-0500 Body weight 83.3 kg [facility] Work Phone: 6(725)071-011390 [place] [address] 05-24-2024 14:00-0500 Diastolic Blood Pressure Non-Invasive 69 mm[Hg] DR RAYMUNDO VIEIRA DO [facility] 05-24-2024 14:00-0500 Heart rate 91 /min DR RAYMUNDO VIEIRA DO [facility] 05-24-2024 14:00-0500 Respiratory rate 16 /min DR RAYMUNDO VIEIRA DO [facility] 05-24-2024 14:00-0500 Systolic Blood Pressure Non-Invasive 113 mm[Hg] DR RAYMUNDO VIEIRA DO [facility] 05-23-2024 22:49-0500 Diastolic Blood Pressure Non-Invasive 72 mm[Hg] DR RAYMUNDO VIEIRA DO [facility] 05-23-2024 22:49-0500 Heart rate 93 /min DR RAYMUNDO VIEIRA DO [facility] 05-23-2024 22:49-0500 Respiratory rate 18 /min DR RAYMUNDO VIEIRA DO [facility] 05-23-2024 22:49-0500 Systolic Blood Pressure Non-Invasive 124 mm[Hg] DR RAYMUNDO VIEIRA DO [facility] 05-23-2024 20:03-0500 Diastolic Blood Pressure Non-Invasive 59 mm[Hg] DR RAYMUNDO VIEIRA DO [facility] 05-23-2024 20:03-0500 Heart rate 91 /min DR RAYMUNDO VIEIRA DO [facility] 05-23-2024 20:03-0500 Mean blood pressure 67 mm[Hg] DR RAYMUNDO VIEIRA DO [facility] 05-23-2024 20:03-0500 Respiratory rate 14 /min DR RAYMUNDO VIEIRA DO [facility] 05-23-2024 20:03-0500 Systolic Blood Pressure Non-Invasive 83 mm[Hg] DR RAYMUNDO VIEIRA DO [facility] 05-23-2024 19:34-0500 Blood Pressure Cuff Size DR RAYMUNDO VIEIRA DO [facility] 05-23-2024 19:34-[address] RAYMUNDO VIEIRA DO [facility] 05-23-2024 19:34-[address] RAYMUNDO VIEIRA DO [facility] 05-23-2024 19:34-0500 Body temperature 98.06 [degF] DR RAYMUNDO VIEIRA DO [facility] 05-23-2024 19:34-0500 Heart rate 95 /min DR RAYMUNDO VIEIRA DO [facility] 04-29-2024 13:31-0500 Body temperature 98.2 [degF] [facility] Work Phone: 9(216)289-379171 [place] [address] 04-29-2024 13:31-0500 Diastolic blood pressure 70 mm[Hg] [facility] Work Phone: 9(684)736-764490 [place] [address] 04-29-2024 13:31-0500 Heart rate 89 /min [facility] Work Phone: 8(484)514-073490 [place] [address] 04-29-2024 13:31-0500 Respiratory rate 16 /min [facility] Work Phone: 1(926)926-151171 [place] [address] 04-29-2024 13:31-0500 SaO2% (BldA) [Mass fraction] 97 % [facility] Work Phone: 2(750)463-429471 [place] [address] 04-29-2024 13:31-0500 Systolic blood pressure 121 mm[Hg] [facility] Work Phone: 6(061)990-082290 [place] [address] 04-29-2024 10:26-0500 Body weight 73.66 kg [facility] Work Phone: 0(318)421-027190 [place] [address] 04-25-2024 16:40-0500 Body mass index (BMI) [Ratio] 25.4 kg/m2 [facility] Work Phone: 4(538)028-146990 [place] [address] 10-15-2023 17:28-0400 Body temperature 97.2 [degF] [facility] 10-15-2023 17:28-0400 Diastolic blood pressure 75 mm[Hg] [facility] 10-15-2023 17:28-0400 Heart rate 87 /min [facility] 10-15-2023 17:28-0400 Respiratory rate 17 /min [facility] 10-15-2023 17:28-0400 SaO2% (BldA) [Mass fraction] 98 % [facility] 10-15-2023 17:28-0400 Systolic blood pressure 131 mm[Hg] [facility] 10-15-2023 15:35-0400 Body height 170.18 cm [facility] 09-02-2023 09:42-0400 Body temperature 97.6 [degF] [facility] Work Phone: 2(138)528-625690 [place] [address] 09-02-2023 09:42-0400 Diastolic blood pressure 76 mm[Hg] [facility] Work Phone: 6(944)478-379590 [place] [address] 09-02-2023 09:42-0400 Heart rate 101 /min [facility] Work Phone: 3(275)084-656990 [place] [address] 09-02-2023 09:42-0400 Respiratory rate 16 /min [facility] Work Phone: 0(068)826-523390 [place] [address] 09-02-2023 09:42-0400 SaO2% (BldA) [Mass fraction] 95 % [facility] Work Phone: 5(789)501-580790 [place] [address] 09-02-2023 09:42-0400 Systolic blood pressure 148 mm[Hg] [facility] Work Phone: 4(170)324-978890 [place] [address] 09-02-2023 07:42-0400 Body height 170.18 cm [facility] Work Phone: 0(741)769-732290 [place] [address] 09-02-2023 07:42-0400 Body mass index (BMI) [Ratio] 29.7 kg/m2 [facility] Work Phone: 5(068)335-942890 [place] [address] 09-02-2023 07:42-0400 Body weight 86.1 kg [facility] Work Phone: 7(203)878-329790 [place] [address] 09-02-2023 07:42-0400 Inhaled oxygen flow rate 2 L/min [facility] Work Phone: 1(860)406-662890 [place] [address] 06-19-2023 09:59-0500 Respiratory rate 14 /min [facility] Work Phone: 1(933)374-386090 [place] [address] 06-19-2023 09:12-0500 Body mass index (BMI) [Ratio] 26.2 kg/m2 [facility] Work Phone: 2(361)496-378490 [place] [address] 06-19-2023 09:12-0500 Body weight 75.7 kg [facility] Work Phone: 0(744)880-447590 [place] [address] 06-19-2023 09:03-0500 Body height 170.18 cm [facility] Work Phone: 6(302)953-122090 [place] [address] 06-19-2023 09:03-0500 Body temperature 95 [degF] [facility] Work Phone: 2(998)076-891090 [place] [address] 06-19-2023 09:03-0500 Diastolic blood pressure 94 mm[Hg] [facility] Work Phone: 6(027)253-580290 [place] [address] 06-19-2023 09:03-0500 Heart rate 102 /min [facility] Work Phone: 2(526)549-962090 [place] [address] 06-19-2023 09:03-0500 SaO2% (BldA) [Mass fraction] 97 % [facility] Work Phone: 1(728)120-083790 [place] [address] 06-19-2023 09:03-0500 Systolic blood pressure 142 mm[Hg] [facility] Work Phone: 8(080)858-662690 [place] [address] 06-16-2023 11:30-0500 SaO2% (BldA) [Mass fraction] 93 % [facility] Work Phone: 9(107)886-440290 [place] [address] 06-16-2023 07:49-0500 Body temperature 97.6 [degF] [facility] Work Phone: 6(749)695-232190 [place] [address] 06-16-2023 07:49-0500 Diastolic blood pressure 80 mm[Hg] [facility] Work Phone: 3(022)416-493690 [place] [address] 06-16-2023 07:49-0500 Heart rate 79 /min [facility] Work Phone: 1(494)680-325990 [place] [address] 06-16-2023 07:49-0500 Respiratory rate 18 /min [facility] Work Phone: 1(012)199-991990 [place] [address] 06-16-2023 07:49-0500 Systolic blood pressure 119 mm[Hg] [facility] Work Phone: 0(850)246-381590 [place] [address] 06-15-2023 20:35-0500 Inhaled oxygen flow rate 2 L/min [facility] Work Phone: 9(397)573-067490 [place] [address] 06-13-2023 14:21-0500 Body height 170.18 cm [facility] Work Phone: 7(933)974-823990 [place] [address] 06-13-2023 14:21-0500 Body weight 79.42 kg [facility] Work Phone: 3(211)444-755490 [place] [address] 06-13-2023 03:00-0500 Body mass index (BMI) [Ratio] 27.4 kg/m2 [facility] Work Phone: 2(571)514-311790 [place] [address] 06-13-2023 01:36-0500 Diastolic blood pressure 92 mm[Hg] [facility] Work Phone: 6(785)598-948090 [place] [address] 06-13-2023 01:36-0500 Heart rate 98 /min [facility] Work Phone: 8(647)967-425190 [place] [address] 06-13-2023 01:36-0500 Respiratory rate 15 /min [facility] Work Phone: 9(637)386-878590 [place] [address] 06-13-2023 01:36-0500 SaO2% (BldA) [Mass fraction] 95 % [facility] Work Phone: 1(787)713-727190 [place] [address] 06-13-2023 01:36-0500 Systolic blood pressure 131 mm[Hg] [facility] Work Phone: 0(333)203-759490 [place] [address] 06-12-2023 23:01-0500 Inhaled oxygen flow rate 4 L/min [facility] Work Phone: 7(718)069-100290 [place] [address] 06-12-2023 19:59-0500 Body temperature 98.9 [degF] [facility] Work Phone: 1(693)771-532390 [place] [address] 05-26-2023 12:07-0500 Diastolic blood pressure 74 mm[Hg] [facility] Work Phone: 6(635)460-187190 [place] [address] 05-26-2023 12:07-0500 Heart rate 82 /min [facility] Work Phone: 6(019)430-969190 [place] [address] 05-26-2023 12:07-0500 Respiratory rate 16 /min [facility] Work Phone: 4(671)977-855890 [place] [address] 05-26-2023 12:07-0500 SaO2% (BldA) [Mass fraction] 96 % [facility] Work Phone: 1(998)701-035890 [place] [address] 05-26-2023 12:07-0500 Systolic blood pressure 138 mm[Hg] [facility] Work Phone: 3(316)920-503190 [place] [address] 05-26-2023 10:44-0500 Body mass index (BMI) [Ratio] 26.3 kg/m2 [facility] Work Phone: 8(199)156-856290 [place] [address] 05-26-2023 10:44-0500 Body weight 76.1 kg [facility] Work Phone: 8(754)055-970990 [place] [address] 05-26-2023 09:50-0500 Body temperature 96.6 [degF] [facility] Work Phone: 9(761)983-815390 [place] [address] 05-22-2023 16:02-0500 Respiratory rate 16 /min [facility] Work Phone: 8(229)749-419790 [place] [address] 05-22-2023 14:33-0500 Body mass index (BMI) [Ratio] 26.6 kg/m2 [facility] Work Phone: 9(398)464-063390 [place] [address] 05-22-2023 14:33-0500 Body weight 77.2 kg [facility] Work Phone: 1(675)990-747190 [place] [address] 05-22-2023 13:51-0500 Body height 170.18 cm [facility] Work Phone: 4(948)479-428090 [place] [address] 05-22-2023 13:51-0500 Body temperature 97.3 [degF] [facility] Work Phone: 3(439)981-676290 [place] [address] 05-22-2023 13:51-0500 Diastolic blood pressure 82 mm[Hg] [facility] Work Phone: 9(665)651-150190 [place] [address] 05-22-2023 13:51-0500 Heart rate 107 /min [facility] Work Phone: 3(895)888-182290 [place] [address] 05-22-2023 13:51-0500 SaO2% (BldA) [Mass fraction] 98 % [facility] Work Phone: 8(539)751-425890 [place] [address] 05-22-2023 13:51-0500 Systolic blood pressure 150 mm[Hg] [facility] Work Phone: 7(723)657-540590 [place] [address] 05-07-2023 16:50-0500 Body temperature 98.3 [degF] [facility] Work Phone: 0(958)729-520990 [place] [address] 05-07-2023 16:50-0500 Diastolic blood pressure 68 mm[Hg] [facility] Work Phone: 7(753)552-389190 [place] [address] 05-07-2023 16:50-0500 Heart rate 84 /min [facility] Work Phone: 7(738)560-478990 [place] [address] 05-07-2023 16:50-0500 Respiratory rate 16 /min [facility] Work Phone: 2(284)359-317990 [place] [address] 05-07-2023 16:50-0500 SaO2% (BldA) [Mass fraction] 99 % [facility] Work Phone: 0(007)010-930690 [place] [address] 05-07-2023 16:50-0500 Systolic blood pressure 101 mm[Hg] [facility] Work Phone: 7(662)382-787190 [place] [address] 05-07-2023 12:30-0500 Body temperature 98.4 [degF] [facility] Work Phone: 7(239)586-542990 [place] [address] 05-07-2023 12:30-0500 Diastolic blood pressure 63 mm[Hg] [facility] Work Phone: 6(668)716-078290 [place] [address] 05-07-2023 12:30-0500 Heart rate 85 /min [facility] Work Phone: 6(419)950-648890 [place] [address] 05-07-2023 12:30-0500 Respiratory rate 16 /min [facility] Work Phone: 6(481)926-991590 [place] [address] 05-07-2023 12:30-0500 SaO2% (BldA) [Mass fraction] 92 % [facility] Work Phone: 4(268)710-271290 [place] [address] 05-07-2023 12:30-0500 Systolic blood pressure 94 mm[Hg] [facility] Work Phone: 0(899)603-021190 [place] [address] 05-07-2023 06:00-0500 Body mass index (BMI) [Ratio] 26.4 kg/m2 [facility] Work Phone: 4(557)170-422290 [place] [address] 05-07-2023 06:00-0500 Body weight 76.5 kg [facility] Work Phone: 8(102)587-168190 [place] [address] 05-05-2023 07:53-0500 Inhaled oxygen flow rate 5 L/min [facility] Work Phone: 5(707)244-070390 [place] [address] 05-04-2023 15:22-0500 Body height 170.18 cm [facility] Work Phone: 5(056)868-368490 [place] [address] 05-03-2023 17:00-0500 Heart rate 110 /min [facility] Work Phone: 5(880)688-770290 [place] [address] 05-03-2023 17:00-0500 Inhaled oxygen flow rate 5 L/min [facility] Work Phone: 3(817)037-071490 [place] [address] 05-03-2023 17:00-0500 Respiratory rate 16 /min [facility] Work Phone: 4(053)546-528790 [place] [address] 05-03-2023 17:00-0500 SaO2% (BldA) [Mass fraction] 93 % [facility] Work Phone: 7(849)695-979590 [place] [address] 05-03-2023 16:23-0500 Diastolic blood pressure 84 mm[Hg] [facility] Work Phone: 9(522)249-749990 [place] [address] 05-03-2023 16:23-0500 Systolic blood pressure 134 mm[Hg] [facility] Work Phone: 8(546)782-087690 [place] [address] 05-03-2023 13:37-0500 Body height 170.18 cm [facility] Work Phone: 8(871)566-498090 [place] [address] 05-03-2023 13:37-0500 Body mass index (BMI) [Ratio] 26.6 kg/m2 [facility] Work Phone: 2(596)972-699990 [place] [address] 05-03-2023 13:37-0500 Body temperature 97.1 [degF] [facility] Work Phone: 9(771)669-570590 [place] [address] 05-03-2023 13:37-0500 Body weight 77.1 kg [facility] Work Phone: 6(113)310-247090 [place] [address] 04-18-2023 14:40-0500 Body height 170.18 cm [facility] Work Phone: 2(669)942-508190 [place] [address] 04-18-2023 14:40-0500 Body mass index (BMI) [Ratio] 25.8 kg/m2 [facility] Work Phone: 0(145)733-136090 [place] [address] 04-18-2023 14:40-0500 Body weight 74.84 kg [facility] Work Phone: 4(241)509-572590 [place] [address] 04-18-2023 14:40-0500 Diastolic blood pressure 87 mm[Hg] [facility] Work Phone: 7(632)797-063090 [place] [address] 04-18-2023 14:40-0500 Heart rate 91 /min [facility] Work Phone: 2(211)996-610690 [place] [address] 04-18-2023 14:40-0500 Respiratory rate 17 /min [facility] Work Phone: 6(947)139-475390 [place] [address] 04-18-2023 14:40-0500 SaO2% (BldA) [Mass fraction] 98 % [facility] Work Phone: 2(410)428-077090 [place] [address] 04-18-2023 14:40-0500 Systolic blood pressure 138 mm[Hg] [facility] Work Phone: 3(009)827-240390 [place] [address] 03-22-2023 13:40-0400 Body height 170.18 cm [facility] Work Phone: 0(711)487-709890 [place] [address] 03-22-2023 13:40-0400 Body mass index (BMI) [Ratio] 25.5 kg/m2 [facility] Work Phone: 1(179)110-847090 [place] [address] 03-22-2023 13:40-0400 Body weight 73.93 kg [facility] Work Phone: 5(252)400-921390 [place] [address] 03-22-2023 13:40-0400 Diastolic blood pressure 77 mm[Hg] [facility] Work Phone: 1(661)209-943590 [place] [address] 03-22-2023 13:40-0400 Heart rate 89 /min [facility] Work Phone: 3(759)866-201590 [place] [address] 03-22-2023 13:40-0400 Respiratory rate 18 /min [facility] Work Phone: 0(714)518-472490 [place] [address] 03-22-2023 13:40-0400 SaO2% (BldA) [Mass fraction] 99 % [facility] Work Phone: 9(037)885-486290 [place] [address] 03-22-2023 13:40-0400 Systolic blood pressure 114 mm[Hg] [facility] Work Phone: 9(450)399-555690 [place] [address] 02-28-2023 11:12-0400 Body mass index (BMI) [Ratio] 24.9 kg/m2 [facility] Work Phone: 8(579)010-733690 [place] [address] 02-28-2023 11:12-0400 Body weight 72.12 kg [facility] Work Phone: 9(490)762-309990 [place] [address] 02-28-2023 11:12-0400 Diastolic blood pressure 74 mm[Hg] [facility] Work Phone: 8(345)698-921790 [place] [address] 02-28-2023 11:12-0400 Heart rate 103 /min [facility] Work Phone: 6(363)584-341190 [place] [address] 02-28-2023 11:12-0400 Respiratory rate 18 /min [facility] Work Phone: 7(002)102-607590 [place] [address] 02-28-2023 11:12-0400 Systolic blood pressure 109 mm[Hg] [facility] Work Phone: 8(713)916-442090 [place] [address] 02-03-2023 15:12-0400 SaO2% (BldA) [Mass fraction] 97 % [facility] Work Phone: 2(617)513-000690 [place] [address] 02-03-2023 14:58-0400 Body temperature 97 [degF] [facility] Work Phone: 2(230)676-286890 [place] [address] 02-03-2023 14:58-0400 Diastolic blood pressure 71 mm[Hg] [facility] Work Phone: 1(924)936-318790 [place] [address] 02-03-2023 14:58-0400 Heart rate 92 /min [facility] Work Phone: 9(596)656-227790 [place] [address] 02-03-2023 14:58-0400 Respiratory rate 18 /min [facility] Work Phone: 9(426)459-259090 [place] [address] 02-03-2023 14:58-0400 Systolic blood pressure 99 mm[Hg] [facility] Work Phone: 6(878)123-383790 [place] [address] 02-03-2023 13:19-0400 Body height 170.18 cm [facility] Work Phone: 1(150)510-430690 [place] [address] 02-03-2023 13:19-0400 Body weight 71.1 kg [facility] Work Phone: 2(874)173-570990 [place] [address] 02-03-2023 10:30-0400 Inhaled oxygen flow rate 2 L/min [facility] Work Phone: 2(895)571-237890 [place] [address] 02-03-2023 03:59-0400 Body mass index (BMI) [Ratio] 24.5 kg/m2 [facility] Work Phone: 7(434)219-049290 [place] [address] 02-02-2023 21:45-0400 Inhaled oxygen concentration 2 % [facility] Work Phone: 1(006)353-746690 [place] [address] 02-02-2023 17:59-0400 Heart rate 112 /min [facility] Work Phone: 8(089)594-816890 [place] [address] 02-02-2023 17:59-0400 Inhaled oxygen flow rate 2 L/min [facility] Work Phone: 4(043)712-450490 [place] [address] 02-02-2023 17:59-0400 Respiratory rate 18 /min [facility] Work Phone: 3(849)227-339590 [place] [address] 02-02-2023 17:59-0400 SaO2% (BldA) [Mass fraction] 95 % [facility] Work Phone: 4(748)642-393290 [place] [address] 02-02-2023 16:00-0400 Body temperature 97 [degF] [facility] Work Phone: 7(675)396-876790 [place] [address] 02-02-2023 16:00-0400 Diastolic blood pressure 97 mm[Hg] [facility] Work Phone: 7(355)883-829290 [place] [address] 02-02-2023 16:00-0400 Systolic blood pressure 134 mm[Hg] [facility] Work Phone: 4(055)747-743490 [place] [address] 02-02-2023 11:21-0400 Body height 167.64 cm [facility] Work Phone: 1(819)410-339190 [place] [address] 02-02-2023 11:21-0400 Body mass index (BMI) [Ratio] 27.1 kg/m2 [facility] Work Phone: 1(375)998-190490 [place] [address] 02-02-2023 11:21-0400 Body weight 76.2 kg [facility] Work Phone: 9(398)547-200190 [place] [address] 01-03-2023 11:42-0400 Body temperature 98 [degF] [facility] Work Phone: 2(452)993-268890 [place] [address] 01-03-2023 11:42-0400 Diastolic blood pressure 66 mm[Hg] [facility] Work Phone: 4(973)345-958490 [place] [address] 01-03-2023 11:42-0400 Heart rate 92 /min [facility] Work Phone: 4(129)867-275290 [place] [address] 01-03-2023 11:42-0400 Respiratory rate 15 /min [facility] Work Phone: 9(446)216-204390 [place] [address] 01-03-2023 11:42-0400 SaO2% (BldA) [Mass fraction] 100 % [facility] Work Phone: 8(335)254-444890 [place] [address] 01-03-2023 11:42-0400 Systolic blood pressure 101 mm[Hg] [facility] Work Phone: 0(229)803-350890 [place] [address] 01-03-2023 05:29-0400 Body mass index (BMI) [Ratio] 25.9 kg/m2 [facility] Work Phone: 4(614)238-568590 [place] [address] 01-03-2023 05:29-0400 Body weight 73.1 kg [facility] Work Phone: 6(291)826-731490 [place] [address] 01-02-2023 12:06-0400 Body height 167.64 cm [facility] Work Phone: 3(374)894-837590 [place] [address] 01-02-2023 08:20-0400 Inhaled oxygen flow rate 2 L/min [facility] Work Phone: 6(517)799-784790 [place] [address] 01-01-2023 16:36-0400 Body temperature 98.2 [degF] [facility] Work Phone: 0(442)751-927990 [place] [address] 01-01-2023 16:36-0400 Diastolic blood pressure 96 mm[Hg] [facility] Work Phone: 9(084)211-061290 [place] [address] 01-01-2023 16:36-0400 Heart rate 105 /min [facility] Work Phone: 2(063)617-574990 [place] [address] 01-01-2023 16:36-0400 Inhaled oxygen flow rate 2 L/min [facility] Work Phone: 6(355)663-170490 [place] [address] 01-01-2023 16:36-0400 Respiratory rate 18 /min [facility] Work Phone: 2(426)460-845190 [place] [address] 01-01-2023 16:36-0400 SaO2% (BldA) [Mass fraction] 98 % [facility] Work Phone: 3(167)209-256090 [place] [address] 01-01-2023 16:36-0400 Systolic blood pressure 140 mm[Hg] [facility] Work Phone: 9(920)640-325990 [place] [address] 01-01-2023 12:11-0400 Body height 167.64 cm [facility] Work Phone: 6(232)707-137690 [place] [address] 01-01-2023 12:11-0400 Body mass index (BMI) [Ratio] 27.1 kg/m2 [facility] Work Phone: 2(302)041-775790 [place] [address] 01-01-2023 12:11-0400 Body weight 76.3 kg [facility] Work Phone: 5(501)868-491890 [place] [address] 10-01-2022 11:09-0400 Body height 167.[address] Nathaly Lainez Work Phone: 3(347)412-035790 [place] [address] 10-01-2022 11:09-0400 Body mass index (BMI) [Ratio] 25.2 kg/m2 Dr. Nathaly [facility] Work Phone: 2(643)486-159490 [place] [address] 10-01-2022 11:09-0400 Body temperature 95.7 [degF] Dr. N[facility] Work Phone: 5(623)492-968690 [place] [address] 10-01-2022 11:09-0400 Body weight 70.[address] Nathaly [facility] Work Phone: 1(575)568-684090 [place] [address] 10-01-2022 11:09-0400 Diastolic blood pressure 80 mm[Hg] Dr. Nathaly [facility] Work Phone: 1(201)856-079290 [place] [address] 10-01-2022 11:09-0400 Heart rate 102 /min Dr. Nathaly Laine[facility] Work Phone: 5(693)015-065490 [place] [address] 10-01-2022 11:09-0400 Respiratory rate 24 /min Dr. Nathaly Laine[facility] Work Phone: 6(999)246-999990 [place] [address] 10-01-2022 11:09-0400 SaO2% (BldA) [Mass fraction] 100 % Dr. Nathaly [facility] Work Phone: 2(988)647-418990 [place] [address] 10-01-2022 11:09-0400 Systolic blood pressure 119 mm[Hg] Dr. Nathaly [facility] Work Phone: 8(777)711-056390 [place] [address] 09-18-2022 18:57-0400 Diastolic blood pressure 83 mm[Hg] Dr. Nathaly [facility] Work Phone: 0(587)149-227090 [place] [address] 09-18-2022 18:57-0400 Heart rate 74 /min Dr. Nathaly Lainez Work Phone: 6(742)559-537390 [place] [address] 09-18-2022 18:57-0400 Respiratory rate 16 /min Dr. Nathaly Laine[facility] Work Phone: 1(948)059-190890 [place] [address] 09-18-2022 18:57-0400 SaO2% (BldA) [Mass fraction] 98 % Dr. Nathaly [facility] Work Phone: 0(018)578-712990 [place] [address] 09-18-2022 18:57-0400 Systolic blood pressure 126 mm[Hg] Dr. Nathaly [facility] Work Phone: 5(227)096-120590 [place] [address] 09-18-2022 14:13-0400 Body height 167.[address] Nathaly Laine[facility] Work Phone: 9(498)188-911590 [place] [address] 09-18-2022 14:13-0400 Body mass index (BMI) [Ratio] 25.2 kg/m2 Dr. Nathaly Laine[facility] Work Phone: 5(552)738-173690 [place] [address] 09-18-2022 14:13-0400 Body temperature 97.6 [degF] Dr. Nathaly Lainez Work Phone: 3(098)157-732890 [place] [address] 09-18-2022 14:13-0400 Body weight 70.[address] Nathaly Lainez Work Phone: 6(178)257-590390 [place] [address] 09-11-2022 20:19-0400 Diastolic blood pressure 92 mm[Hg] Dr. Nathaly Lainez Work Phone: 4(364)072-634190 [place] [address] 09-11-2022 20:19-0400 Heart rate 101 /min Dr. Nathaly Lainez Work Phone: 8(909)197-356690 [place] [address] 09-11-2022 20:19-0400 Respiratory rate 17 /min Dr. Nathaly Lainez Work Phone: 9(630)292-910490 [place] [address] 09-11-2022 20:19-0400 SaO2% (BldA) [Mass fraction] 96 % Dr. Nathaly Lainez Work Phone: 2(821)401-782790 [place] [address] 09-11-2022 20:19-0400 Systolic blood pressure 142 mm[Hg] Dr. Nathayl Lainez Work Phone: 3(923)745-760090 [place] [address] 09-11-2022 14:27-0400 Body height 170.[address] Nathaly Lainez Work Phone: 0(480)807-828690 [place] [address] 09-11-2022 14:27-0400 Body mass index (BMI) [Ratio] 24.4 kg/m2 Dr. Nathaly Lainez Work Phone: 7(516)943-598090 [place] [address] 09-11-2022 14:27-0400 Body temperature 97.2 [degF] Dr. Nathaly Lainez Work Phone: 3(507)536-087290 [place] [address] 09-11-2022 14:27-0400 Body weight 70.[address] Nathaly Lainez Work Phone: 2(835)706-871590 [place] [address] 09-09-2022 23:43-0400 Diastolic blood pressure 74 mm[Hg] Dr. Nathaly Lainez Work Phone: 6(950)014-681190 [place] [address] 09-09-2022 23:43-0400 Systolic blood pressure 123 mm[Hg] Dr. Nathaly Lainez Work Phone: 8(154)237-053990 [place] [address] 09-09-2022 18:22-0400 Body height 170.[address] Nathaly Lainez Work Phone: 4(968)206-408690 [place] [address] 09-09-2022 18:22-0400 Body mass index (BMI) [Ratio] 24.4 kg/m2 Dr. Nathaly Lainez Work Phone: 3(724)275-413590 [place] [address] 09-09-2022 18:22-0400 Body temperature 97.4 [degF] Dr. Nathaly Lainez Work Phone: 5(913)619-638690 [place] [address] 09-09-2022 18:22-0400 Body weight 70.[address] Nathaly Lainez Work Phone: 9(540)120-321290 [place] [address] 09-09-2022 18:22-0400 Heart rate 111 /min Dr. Nathaly Lainez Work Phone: 3(807)639-433290 [place] [address] 09-09-2022 18:22-0400 Respiratory rate 16 /min Dr. Nathaly Lainez Work Phone: 7(088)492-411390 [place] [address] 09-09-2022 18:22-0400 SaO2% (BldA) [Mass fraction] 99 % Dr. Nathaly Lainez Work Phone: 0(119)376-292790 [place] [address] 09-05-2022 15:02-0400 Respiratory rate 18 /min Dr. Nathaly Lainez Work Phone: 9(119)608-556090 [place] [address] 09-05-2022 12:29-0400 Body height 170.[address] Nathaly Lainez Work Phone: 0(424)233-414890 [place] [address] 09-05-2022 12:29-0400 Body mass index (BMI) [Ratio] 26.3 kg/m2 Dr. Nathaly Lainez Work Phone: 6(540)796-190590 [place] [address] 09-05-2022 12:29-0400 Body temperature 98.3 [degF] Dr. Nathaly Lainez Work Phone: 0(856)384-690990 [place] [address] 09-05-2022 12:29-0400 Body weight 76.[address] Nathaly Lainez Work Phone: 0(163)704-293990 [place] [address] 09-05-2022 12:29-0400 Diastolic blood pressure 90 mm[Hg] Dr. Nathaly Lainez Work Phone: 1(377)581-701490 [place] [address] 09-05-2022 12:29-0400 Heart rate 111 /min Dr. Nathaly Lainez Work Phone: 6(790)712-985090 [place] [address] 09-05-2022 12:29-0400 SaO2% (BldA) [Mass fraction] 98 % Dr. Nathaly Lainez Work Phone: 0(174)395-481390 [place] [address] 09-05-2022 12:29-0400 Systolic blood pressure 139 mm[Hg] Dr. Nathaly Lainez Work Phone: 2(836)112-824590 [place] [address] 09-02-2022 13:40-0400 Body temperature 97.9 [degF] Dr. Nathaly Lainez Work Phone: 4(772)444-505690 [place] [address] 09-02-2022 13:40-0400 Diastolic blood pressure 66 mm[Hg] Dr. Nathaly Lainez Work Phone: 4(342)109-222190 [place] [address] 09-02-2022 13:40-0400 Heart rate 98 /min Dr. Nathaly Lainez Work Phone: 7(777)647-914590 [place] [address] 09-02-2022 13:40-0400 Respiratory rate 18 /min Dr. Nathaly Lainez Work Phone: 7(048)812-568990 [place] [address] 09-02-2022 13:40-0400 SaO2% (BldA) [Mass fraction] 96 % Dr. Nathaly Lainez Work Phone: 6(175)614-485690 [place] [address] 09-02-2022 13:40-0400 Systolic blood pressure 108 mm[Hg] Dr. Nathaly Lainez Work Phone: 3(264)893-079190 [place] [address] 08-31-2022 16:10-0400 Inhaled oxygen flow rate 4 L/min Dr. Nathaly Lainez Work Phone: 4(185)710-730090 [address] [place] [place] [address] 08-31-2022 14:32-0400 Body height 170.[address] Nathaly Lainez Work Phone: 5(505)682-317190 [place] [address] 08-31-2022 14:32-0400 Body weight 70.[address] Nathaly Lainez Work Phone: 8(885)674-213690 [place] [address] 08-31-2022 09:14-0400 Body mass index (BMI) [Ratio] 24.4 kg/m2 Dr. Nathaly Lainez Work Phone: 8(147)922-240990 [place] [address] 08-30-2022 17:01-0400 Diastolic blood pressure 101 mm[Hg] Dr. Nathaly Lainez Work Phone: 6(718)960-948790 [place] [address] 08-30-2022 17:01-0400 Heart rate 118 /min Dr. Nathaly Lainez Work Phone: 7(505)353-487890 [place] [address] 08-30-2022 17:01-0400 Respiratory rate 18 /min Dr. Nathaly Lainez Work Phone: 8(841)293-742090 [place] [address] 08-30-2022 17:01-0400 SaO2% (BldA) [Mass fraction] 97 % Dr. Nathaly Lainez Work Phone: 9(861)297-092590 [place] [address] 08-30-2022 17:01-0400 Systolic blood pressure 142 mm[Hg] Dr. Nathaly Lainez Work Phone: 5(579)393-660890 [place] [address] 08-30-2022 16:13-0400 Body temperature 98.4 [degF] Dr. Nathaly Lainez Work Phone: 0(735)361-908184 [address] 08-30-2022 13:53-0400 Body height 170.[address] Nathaly Lainez Work Phone: 4(046)621-436890 [place] [address] 08-30-2022 13:53-0400 Body mass index (BMI) [Ratio] 24.4 kg/m2 Dr. Nathaly Lainez Work Phone: 0(235)148-726084 [address] 08-30-2022 13:53-0400 Body weight 70.[address] Nathaly Lainez Work Phone: 0(317)366-636890 [place] [address] 08-23-2022 13:03-0400 Body weight 73.[address] Nathaly Lainez Work Phone: 7(930)406-276590 [place] [address] 08-23-2022 13:03-0400 Diastolic blood pressure 81 mm[Hg] Dr. Nathaly Lainez Work Phone: 7(722)414-955390 [place] [address] 08-23-2022 13:03-0400 Heart rate 110 /min Dr. Nathaly Lainez Work Phone: 7(292)869-055090 [place] [address] 08-23-2022 13:03-0400 Respiratory rate 16 /min Dr. Nathaly Lainez Work Phone: 3(256)402-822990 [place] [address] 08-23-2022 13:03-0400 SaO2% (BldA) [Mass fraction] 99 % Dr. Nathaly Lainez Work Phone: 8(262)180-190784 [address] 08-23-2022 13:03-0400 Systolic blood pressure 124 mm[Hg] Dr. Nathaly Lainez Work Phone: 5(602)550-799084 [address] 08-14-2022 16:50-0400 Diastolic blood pressure 68 mm[Hg] Dr. Nathaly Lainez Work Phone: 0(130)221-286590 [place] [address] 08-14-2022 16:50-0400 Heart rate 89 /min Dr. Nathaly Lainez Work Phone: 0(020)748-371771 [place] [address] 08-14-2022 16:50-0400 Respiratory rate 16 /min Dr. Nathaly Lainez Work Phone: 0(934)662-447490 [place] [address] 08-14-2022 16:50-0400 SaO2% (BldA) [Mass fraction] 95 % Dr. Nathaly Lainez Work Phone: 6(129)670-509390 [place] [address] 08-14-2022 16:50-0400 Systolic blood pressure 142 mm[Hg] Dr. Nathaly Lainez Work Phone: 9(133)246-791090 [place] [address] 08-14-2022 13:51-0400 Body temperature 97.8 [degF] Dr. Nathaly Lainez Work Phone: 7(770)177-788190 [place] [address] 08-14-2022 13:37-0400 Body height 170.[address] Nathaly Lainez Work Phone: 1(456)288-693090 [place] [address] 08-14-2022 13:37-0400 Body mass index (BMI) [Ratio] 24.7 kg/m2 Dr. Nathaly Lainez Work Phone: 9(471)058-158390 [place] [address] 08-14-2022 13:37-0400 Body weight 71.[address] Nathaly Lainez Work Phone: 5(852)259-362890 [place] [address] 08-10-2022 07:07-0500 Body height 170.[address] Nathaly Lainez Work Phone: 1(832)305-681790 [place] [address] 08-10-2022 07:07-0500 Body weight 69.[address] Nathaly Lainez Work Phone: 9(212)929-824690 [place] [address] 08-09-2022 15:33-0500 Body mass index (BMI) [Ratio] 24.1 kg/m2 Dr. Nathaly Lainez Work Phone: 8(800)303-059290 [place] [address] 08-09-2022 10:47-0500 Body temperature 98 [degF] Dr. Nathaly Lainez Work Phone: 2(030)711-270890 [place] [address] 08-09-2022 10:47-0500 Diastolic blood pressure 89 mm[Hg] Dr. Nathaly Lainez Work Phone: 8(672)181-625890 [place] [address] 08-09-2022 10:47-0500 Heart rate 103 /min Dr. Nathaly Lainez Work Phone: 8(331)751-240190 [place] [address] 08-09-2022 10:47-0500 Respiratory rate 18 /min Dr. Nathaly Lainez Work Phone: 8(644)860-837790 [place] [address] 08-09-2022 10:47-0500 SaO2% (BldA) [Mass fraction] 97 % Dr. Nathaly Lainez Work Phone: 7(106)795-666090 [place] [address] 08-09-2022 10:47-0500 Systolic blood pressure 136 mm[Hg] Dr. Nathaly Lainez Work Phone: 6(533)622-297790 [place] [address] 08-06-2022 16:45-0500 Body temperature 97.8 [degF] Dr. Nathaly Lainez Work Phone: 3(563)854-689090 [place] [address] 08-06-2022 16:45-0500 Diastolic blood pressure 78 mm[Hg] Dr. Nathaly Lainez Work Phone: 2(701)309-413590 [place] [address] 08-06-2022 16:45-0500 Heart rate 76 /min Dr. Nathaly Lainez Work Phone: 9(018)597-940390 [place] [address] 08-06-2022 16:45-0500 Respiratory rate 16 /min Dr. Nathaly Lainez Work Phone: 5(564)699-775090 [place] [address] 08-06-2022 16:45-0500 SaO2% (BldA) [Mass fraction] 99 % Dr. Nathaly Lainez Work Phone: 6(668)312-670590 [place] [address] 08-06-2022 16:45-0500 Systolic blood pressure 143 mm[Hg] Dr. Nathaly Lainez Work Phone: 4(660)159-320790 [place] [address] 08-06-2022 14:43-0500 Body mass index (BMI) [Ratio] 24.2 kg/m2 Dr. Nathaly Lainez Work Phone: 4(154)006-341390 [place] [address] 08-06-2022 14:43-0500 Body weight 70.[address] Nathaly Lainez Work Phone: 8(151)872-902490 [place] [address] 08-03-2022 16:26-0500 Diastolic blood pressure 74 mm[Hg] Dr. Nathaly Lainez Work Phone: 5(556)272-336190 [place] [address] 08-03-2022 16:26-0500 Heart rate 107 /min Dr. Nathaly Lainez Work Phone: 2(330)535-304490 [place] [address] 08-03-2022 16:26-0500 Respiratory rate 18 /min Dr. Nathaly Lainez Work Phone: 2(438)575-234490 [place] [address] 08-03-2022 16:26-0500 SaO2% (BldA) [Mass fraction] 94 % Dr. Nathaly Lainez Work Phone: 2(338)325-382090 [place] [address] 08-03-2022 16:26-0500 Systolic blood pressure 114 mm[Hg] Dr. Nathaly Lainez Work Phone: 7(053)183-242790 [place] [address] 08-03-2022 12:19-0500 Body height 170.[address] Nathaly Lainez Work Phone: 8(542)902-937090 [place] [address] 08-03-2022 12:19-0500 Body mass index (BMI) [Ratio] 25.2 kg/m2 Dr. Nathaly Lainez Work Phone: 3(733)957-934590 [place] [address] 08-03-2022 12:19-0500 Body temperature 97.7 [degF] Dr. Nathaly Lainez Work Phone: 8(344)054-838690 [place] [address] 08-03-2022 12:19-0500 Body weight 73.[address] Nathaly Lainez Work Phone: 0(176)499-413690 [place] [address] 07-25-2022 12:13-0500 Diastolic blood pressure 90 mm[Hg] Dr. Nathaly Lainez Work Phone: 4(608)436-654490 [place] [address] 07-25-2022 12:13-0500 Heart rate 78 /min Dr. Nathaly Lainez Work Phone: 5(795)655-552390 [place] [address] 07-25-2022 12:13-0500 Respiratory rate 18 /min Dr. Nathaly Lainez Work Phone: 6(823)360-341390 [place] [address] 07-25-2022 12:13-0500 SaO2% (BldA) [Mass fraction] 98 % Dr. Nathaly Lainez Work Phone: [facility] 07-25-2022 12:13-0500 Systolic blood pressure 142 mm[Hg] Dr. Nathaly Lainez Work Phone: [facility] 07-25-2022 09:16-0500 Body height 170.[address] Nathaly Lainez Work Phone: [facility] 07-25-2022 09:16-0500 Body mass index (BMI) [Ratio] 26.3 kg/m2 Dr. Nathaly Lainez Work Phone: [facility] 07-25-2022 09:16-0500 Body temperature 97.4 [degF] Dr. Nathaly Lainez Work Phone: [facility] 07-25-2022 09:16-0500 Body weight 76.[address] Nathaly Lainez Work Phone: [facility] 06-08-2022 14:09-0500 Body height 167.6 cm Jerry Robert PA-C Work Phone: [facility] 06-08-2022 14:09-0500 Body mass index (BMI) [Ratio] 25.02 kg/m2 Jerry Robert PA-C Work Phone: [facility] 06-08-2022 14:09-0500 Body weight 70.31 kg Jerry Robert PA-C Work Phone: [facility] 06-08-2022 14:09-0500 Diastolic blood pressure 95 mm[Hg] Jerry Robert PA-C Work Phone: [facility] 06-08-2022 14:09-0500 Heart rate 117 /min Jerry Robert PA-C Work Phone: [facility] 06-08-2022 14:09-0500 Systolic blood pressure 135 mm[Hg] Jerry Robert PA-C Work Phone: [facility] [employer] 05-19-2022 19:29-0500 Heart rate 102 /min Dr. Nathaly Lainez Work Phone: 2(598)965-579284 [address] 05-19-2022 19:29-0500 SaO2% (BldA) [Mass fraction] 97 % Dr. Nathaly Lainez Work Phone: 2(250)609-124890 [place] [address] 05-19-2022 14:45-0500 Body height 170.[address] Nathaly Lainez Work Phone: 7(772)250-291484 [address] Work Phone: 05-19-2022 14:45-0500 Body mass index (BMI) [Ratio] 24.3 kg/m2 Dr. Nathaly Lainez Work Phone: 2(665)544-694790 [place] [address] 05-19-2022 14:45-0500 Body temperature 96 [degF] Dr. Nathaly Lainez Work Phone: 4(389)233-079390 [place] [address] 05-19-2022 14:45-0500 Body weight 70.[address] Nathaly Lainez Work Phone: 4(294)909-925090 [place] [address] 05-19-2022 14:45-0500 Diastolic blood pressure 87 mm[Hg] Dr. Nathaly Lainez Work Phone: 4(709)214-538190 [place] [address] 05-19-2022 14:45-0500 Respiratory rate 18 /min Dr. Nathaly Lainez Work Phone: 0(380)390-547590 [place] [address] 05-19-2022 14:45-0500 Systolic blood pressure 127 mm[Hg] Dr. Nathaly Lainez Work Phone: 6(830)471-218690 [place] [address] 05-10-2022 00:56-0500 Diastolic blood pressure 75 mm[Hg] Dr. Nathaly Lainez Work Phone: 3(443)128-554490 [place] [address] 05-10-2022 00:56-0500 Heart rate 101 /min Dr. Nathaly Lainez Work Phone: 6(825)252-936190 [place] [address] 05-10-2022 00:56-0500 Respiratory rate 17 /min Dr. Nathaly Lainez Work Phone: 8(665)296-949990 [place] [address] 05-10-2022 00:56-0500 SaO2% (BldA) [Mass fraction] 94 % Dr. Nathaly Lainez Work Phone: [facility] 05-10-2022 00:56-0500 Systolic blood pressure 118 mm[Hg] Dr. Nathaly Lainez Work Phone: [facility] 05-09-2022 19:01-0500 Body height 170.[address] Nathaly Lainez Work Phone: [facility] Work Phone: 05-09-2022 19:01-0500 Body mass index (BMI) [Ratio] 24.3 kg/m2 Dr. Nathaly Lainez Work Phone: [facility] 05-09-2022 19:01-0500 Body temperature 97.5 [degF] Dr. Nathaly Lainez Work Phone: [facility] 05-09-2022 19:01-0500 Body weight 70.[address] Nathaly Lainez Work Phone: [facility] 04-18-2022 14:04-0500 Body height 170.18 cm [facility] Work Phone: 04-18-2022 14:04-0500 Body mass index (BMI) [Ratio] 24.7 kg/m2 [facility] 04-18-2022 14:04-0500 Body temperature 97.2 [degF] [facility] 04-18-2022 14:04-0500 Body weight 71.6 kg [facility] 04-18-2022 14:04-0500 Diastolic blood pressure 88 mm[Hg] [facility] 04-18-2022 14:04-0500 Heart rate 115 /min [facility] 04-18-2022 14:04-0500 Respiratory rate 16 /min [facility] 04-18-2022 14:04-0500 SaO2% (BldA) [Mass fraction] 97 % [facility] 04-18-2022 14:04-0500 Systolic blood pressure 139 mm[Hg] [facility] 04-17-2022 13:53-0500 Body height 170.18 cm [facility] Work Phone: 04-17-2022 13:53-0500 Body mass index (BMI) [Ratio] 24.3 kg/m2 [facility] 04-17-2022 13:53-0500 Body temperature 97.9 [degF] [facility] 04-17-2022 13:53-0500 Body weight 70.3 kg [facility] 04-17-2022 13:53-0500 Diastolic blood pressure 80 mm[Hg] [facility] 04-17-2022 13:53-0500 Heart rate 130 /min [facility] 04-17-2022 13:53-0500 Respiratory rate 18 /min [facility] 04-17-2022 13:53-0500 SaO2% (BldA) [Mass fraction] 97 % [facility] 04-17-2022 13:53-0500 Systolic blood pressure 125 mm[Hg] [facility] 03-27-2022 12:26-0400 Diastolic blood pressure 90 mm[Hg] [facility] 03-27-2022 12:26-0400 Heart rate 103 /min [facility] 03-27-2022 12:26-0400 Respiratory rate 16 /min [facility] 03-27-2022 12:26-0400 SaO2% (BldA) [Mass fraction] 96 % [facility] 03-27-2022 12:26-0400 Systolic blood pressure 130 mm[Hg] [facility] 03-27-2022 10:29-0400 Body height 170.18 cm [facility] Work Phone: 03-27-2022 10:29-0400 Body mass index (BMI) [Ratio] 24.8 kg/m2 [facility] 03-27-2022 10:29-0400 Body temperature 96.7 [degF] [facility] 03-27-2022 10:29-0400 Body weight 72.07 kg [facility] 08-13-2021 15:21-0500 Diastolic blood pressure 80 mm[Hg] [facility] 08-13-2021 15:21-0500 Heart rate 73 /min Pcp Unknown [facility] 08-13-2021 15:21-0500 Respiratory rate 16 /min Pcp Unknown [facility] 08-13-2021 15:21-0500 SaO2% (BldA) [Mass fraction] 99 % Pcp Unknown [facility] 08-13-2021 15:21-0500 Systolic blood pressure 131 mm[Hg] Pcp Unknown [facility] 08-13-2021 12:41-0500 Body temperature 97.52 [degF] Pcp Unknown [facility] Encounters Encounter Date Encounter Type Care Provider Facility Start: 12-12-2024 End: 12-12-2024 Zohreh Mckeon [employer] Work Phone: -Emergency Department Work Phone: Start: 12-12-2024 End: 12-12-2024 Emergency department patient visit Zohreh Mckeon SERVICE DESK DIRECTOR-C Work Phone: -Emergency Department Start: 09-29-2024 End: 09-29-2024 [facility] Work Phone: -Emergency Department Work Phone: Start: 09-29-2024 End: 09-29-2024 Emergency department patient visit [facility] Work Phone: [facility] Work Phone: Start: 09-24-2024 ambulatory Nichelle Mcneil Facili ty:[facility] Start: 09-23-2024 ambulatory Nichelle Mcneil Facili ty:[facility] Start: 09-22-2024 [facility] Start: 09-21-2024 End: 09-21-2024 [facility] Work Phone: -Emergency Department Work Phone: Start: 09-21-2024 End: 09-21-2024 Emergency department patient visit [facility] Work Phone: [facility] Work Phone: Start: 09-21-2024 ambulatory Nichelle Tarun Facili ty:[facility] Start: 09-20-2024 [facility] Start: 09-19-2024 [facility] Start: 09-18-2024 ambulatory [facility] Fa cility:[facility] Start: 09-17-2024 [facility] Start: 09-16-2024 Dr. Latricia Aaron MD [facility] Work Phone: Start: 09-15-2024 Dr. Latricia Aaron MD [facility] Work Phone: Start: 09-14-2024 Dr. Brenda Posadas MD -[facility] Work Phone: Start: 09-13-2024 Dr. Brenda Posadas MD [facility] Work Phone: Start: 09-12-2024 Dr. Brenda Posadas MD [facility] Work Phone: Start: 09-11-2024 Dr. Brenda Posadas MD [facility] Work Phone: Start: 09-10-2024 Dr. Brenda Posadas MD [facility] Work Phone: Start: 09-09-2024 ambulatory [facility] Start: 09-09-2024 End: 09-16-2024 Evaluation and management of inpatient [facility] Work Phone: [facility] Work Phone: Start: 09-09-2024 End: 09-16-2024 Dr. Latricia Aaron MD -[facility] Work Phone: Start: 09-08-2024 Dr. Brenda Posadas MD -[facility] Work Phone: Start: 09-07-2024 ambulatory [facility] Start: 09-07-2024 observation encounter [facility] Work Phone: [facility] Work Phone: Start: 09-07-2024 Dr. Rosaura friedman MD -Progressive Care Unit Work Phone: Start: 09-05-2024 End: 09-05-2024 [facility] Work Phone: -Emergency Department Work Phone: Start: 09-05-2024 End: 09-05-2024 Emergency department patient visit [facility] Work Phone: [facility] Work Phone: Start: 09-02-2024 Dr. Latricia Aaron MD - [facility] Work Phone: Start: 09-01-2024 ambulatory Zohrehdmitriy Mckeon [facility] Start: 09-01-2024 Dr. Alli Brito MD -[facility] Start: 09-01-2024 Dr. Latricia Aaron MD [facility] Work Phone: Start: 08-31-2024 Dr. Nicole Trujillo DO -[facility] Work Phone: Start: 08-30-2024 Dr. Nicole Trujillo DO [facility] Work Phone: Start: 08-29-2024 Dr. Nicole Trujillo DO [facility] Work Phone: Start: 08-28-2024 Dr. Nicole Trujillo DO -[facility] Work Phone: Start: 08-27-2024 Dr. Nicole Trujillo DO -[facility] Work Phone: Start: 08-26-2024 End: 09-02-2024 Evaluation and management of inpatient [facility] Work Phone: [facility] Work Phone: Start: 08-26-2024 End: 09-02-2024 Dr. Brenda Posadas MD -Intensive Care Unit Work Phone: Start: 08-26-2024 ambulatory Nicole Trujillo [facility] Start: 08-26-2024 ambulatory Riccardo Ng [facility] Start: 08-26-2024 Dr. Riccardo Ng MD -[facility] Start: 08-01-2024 End: 08-01-2024 Dr. Riccardo Hillman DO -Emergency Departme nt Work Phone: Start: 08-01-2024 End: 08-01-2024 Emergency department patient visit [facility] Facility:[facility] Start: 07-17-2024 ambulatory [facility] Start: 07-11-2024 End: 07-11-2024 Dr. Nicole Trujillo DO -Medical Out Work Phone: Start: 07-11-2024 End: 07-11-2024 ambulatory Nicole Trujillo Facility:[facility] Start: 07-10-2024 End: 07-10-2024 Dr. Nicole Trujillo DO -Medical Out Work Phone: Start: 07-10-2024 End: 07-10-2024 ambulatory Nicole Trujillo Facility:[facility] Start: 07-09-2024 ambulatory Nicole Trujillo Facility:[facility] Start: 07-08-2024 ambulatory Nicole Trujillo Facility:[facility] Start: 07-07-2024 End: 07-07-2024 Dr. Nicole Trujillo DO -Medical Out Work Phone: Start: 07-07-2024 End: 07-07-2024 ambulatory Nicole Trujillo Facility:[facility] Start: 07-06-2024 End: 07-06-2024 Dr. Nicole Trujillo DO -Medical Out Work Phone: Start: 07-06-2024 End: 07-06-2024 ambulatory Nicole Trujillo Facility:[facility] Start: 07-05-2024 End: 07-05-2024 Dr. Nicole Trujillo DO -Medical Out Work Phone: Start: 07-05-2024 End: 07-05-2024 ambulatory Nicole Trujillo Facility:[facility] Start: 07-04-2024 End: 07-04-2024 Dr. Nicole Trujillo DO -Medical Out Work Phone: Start: 07-04-2024 End: 07-04-2024 ambulatory Nicole Trujillo Facility:[facility] Start: 07-03-2024 Dr. Nicole Trujillo DO -[facility] Work Phone: Start: 07-02-2024 Dr. Nicole Trujillo DO -[facility] Work Phone: Start: 07-01-2024 Dr. Nicole Trujillo DO [facility] Work Phone: Start: 06-30-2024 Dr. Nicole Trujillo DO [facility] Work Phone: Start: 06-29-2024 End: 07-03-2024 Evaluation and management of inpatient Nicole Trujillo Facility:[facility] Start: 06-29-2024 End: 07-03-2024 Dr. Nicole Trujillo DO -Medical Surgical 3 Work Phone: Start: 06-29-2024 ambulatory Nicole Trujillo [facility] Start: 05-23-2024 End: 05-24-2024 Emergency department patient visit DR RAYMUNDO VIEIRA DO [facility] Start: 04-29-2024 Dr. Talisha chen MD -[facility] Work Phone: Start: 04-28-2024 Dr. Talisha chen MD -[facility] Work Phone: Start: 04-25-2024 ambulatory Nicole Trujillo [facility] Start: 04-25-2024 End: 04-29-2024 Evaluation and management of inpatient Nicole Trujillo Facility:[facility] Start: 04-25-2024 End: 04-29-2024 Dr. Talisha Boykin MD -Medical Surgical 3 Work Phone: Start: 02-14-2024 End: 02-19-2024 ambulatory Brandon Adames Facility:[facility] Start: 02-06-2024 End: 02-06-2024 Telephone encounter Gerda Rivero MD Work Phone: Endocrine Surgery Comment on above: Appointment ( Jimena trejo attempts to contact patient to schedule appointment with regarding incidental growth found in adrenal gland, not able to contact. Scheduled appointment with for 02/20 at 1:30 PM and mailed out appointment reminder.) Start: 01-10-2024 End: 01-10-2024 Emergency department patient visit [facility] Facility[facility] Start: 12-29-2023 [facility] Start: 12-29-2023 End: 01-01-2024 Evaluation and management of inpatient [facility] Facility:[facility] Start: 11-20-2023 Telephone encounter Stephanie Whiting [facility] Comment on above: Orders ([facility] defer ral) Start: 10-22-2023 Telephone encounter Stephanie Whiting [facility] Comment on above: Orders ([facility] order contact/SNF ltr) Start: 10-18-2023 End: 10-19-2023 ambulatory ALFREDOERICKA CALDWELLL [facility] Start: 10-18-2023 Telephone encounter Diya Patten MD Work Phone: [facility] Comment on above: returned nursing hair e call; Patient Update Start: 10-15-2023 End: 10-15-2023 Emergency department patient visit [facility] Work Phone: Start: 10-12-2023 Registered Referred [facility] Start: 10-09-2023 Telephone encounter Diya Patten MD Work Phone: [facility] Start: 10-08-2023 Registered Referred [facility] Start: 10-04-2023 Telephone encounter Diya Patten MD Work Phone: [facility] Comment on above: Patient Update Start: 10-02-2023 Telephone encounter Diya Patten MD Work Phone: [facility] Comment on above: Contact Center Call; Patient Update; PHYSICIAN INSTRUCTIONS Start: 10-01-2023 Telephone encounter Diya Patten MD Work Phone: [facility] Comment on above: Patient Update Start: 10-01-2023 Registered Referred [facility] Start: 09-29-2023 Registered Referred [facility] Start: 09-27-2023 Telephone encounter Diya Patten MD Work Phone: [facility] Comment on above: Patient Question; Ab scess Start: 09-24-2023 Registered Referred [facility] Start: 09-17-2023 Registered Referred [facility] Work Phone: [facility] Start: 09-12-2023 Telephone encounter Diya Patten MD Work Phone: [facility] Comment on above: Appointment; Radiolo gy XR Start: 09-10-2023 End: 09-10-2023 ambulatory [facility] Work Phone: [facility] Work Phone: Start: 09-10-2023 End: 09-10-2023 Departed Referred [facility] Work Phone: [facility] Start: 09-02-2023 End: 09-07-2023 Evaluation and management of inpatient [facility] Facility:[facility] Start: 09-02-2023 End: 09-02-2023 Emergency department patient [facility] Start: 06-19-2023 End: 06-19-2023 Emergency department patient visit [facility] Work Phone: [facility] Work Phone: Start: 06-18-2023 Registered Recurring [facility] Work Phone: [facility] Work Phone: Start: 06-16-2023 Non-patient / Non-visit [facility] Work Phone: [facility] Work Phone: Start: 06-15-2023 Non-patient / Non-visit [facility] Work Phone: [facility] Work Phone: Start: 06-14-2023 Non-patient / Non-visit [facility] Work Phone: [facility] Work Phone: Start: 06-13-2023 Non-patient / Non-visit [facility] Work Phone: [facility] Work Phone: Start: 06-13-2023 End: 06-16-2023 Evaluation and management of inpatient [facility] Work Phone: [facility] Work Phone: Start: 05-26-2023 End: 05-26-2023 Emergency department patient visit [facility] Work Phone: [facility] Work Phone: Start: 05-22-2023 End: 05-22-2023 Emergency department patient visit [facility] Work Phone: [facility] Work Phone: Start: 05-07-2023 Non-patient / Non-visit [facility] Work Phone: [facility] Work Phone: Start: 05-06-2023 Non-patient / Non-visit [facility] Work Phone: [facility] Start: 05-06-2023 Non-patient / Non-visit [facility] Work Phone: [facility] Work Phone: Start: 05-05-2023 Non-patient / Non-visit [facility] Work Phone: [facility] Start: 05-05-2023 Non-patient / Non-visit [facility] Work Phone: [facility] Work Phone: Start: 05-04-2023 Non-patient / Non-visit [facility] Work Phone: [facility] Work Phone: Start: 05-04-2023 Non-patient / Non-visit [facility] Work Phone: [facility] Start: 05-03-2023 End: 05-07-2023 Evaluation and management of inpatient [facility] Work Phone: [facility] Work Phone: Start: 04-18-2023 End: 04-18-2023 ambulatory [facility] Work Phone: [facility] Work Phone: Start: 04-18-2023 End: 04-18-2023 Patient encounter procedure [facility] Work Phone: [facility] Work Phone: Start: 04-05-2023 End: 04-05-2023 ambulatory [facility] Work Phone: [facility] Work Phone: Start: 04-05-2023 End: 04-05-2023 Patient encounter procedure [facility] Work Phone: [facility] Work Phone: Start: 03-22-2023 End: 03-22-2023 Patient encounter procedure [facility] Work Phone: [facility] Work Phone: Start: 02-28-2023 End: 02-28-2023 Patient encounter procedure [facility] Work Phone: [facility] Work Phone: Start: 02-06-2023 Non-patient / Non-visit [facility] Work Phone: [facility] Work Phone: Start: 02-02-2023 Non-patient / Non-visit [facility] Work Phone: [facility] Work Phone: Start: 02-02-2023 End: 02-03-2023 Evaluation and management of inpatient [facility] Work Phone: [facility] Work Phone: Start: 02-02-2023 End: 02-03-2023 observation encounter [facility] Work Phone: [facility] Work Phone: Start: 01-03-2023 Non-patient / Non-visit [facility] Work Phone: [facility] Work Phone: Start: 01-02-2023 Non-patient / Non-visit [facility] Work Phone: [facility] Work Phone: Start: 01-01-2023 Non-patient / Non-visit [facility] Work Phone: [facility] Work Phone: Start: 01-01-2023 End: 01-03-2023 Evaluation and management of inpatient [facility] Work Phone: [facility] Work Phone: Start: 10-01-2022 End: 10-01-2022 Emergency department patient visit Dr. Nathaly Lainez Work Phone: [facility] Work Phone: Start: 10-01-2022 End: 10-01-2022 Dr. Nathaly Lainez Work Phone: [facility] Start: 09-18-2022 End: 09-18-2022 Emergency department patient visit Dr. Nathaly Lainez Work Phone: [facility] Work Phone: Start: 09-18-2022 End: 09-18-2022 Dr. Nathaly Lainez Work Phone: [facility] Start: 09-11-2022 End: 09-11-2022 Emergency department patient visit Dr. Nathaly Lainez Work Phone: [facility] Work Phone: Start: 09-11-2022 End: 09-11-2022 Dr. Nathaly Lainez Work Phone: [facility] Start: 09-09-2022 End: 09-10-2022 Emergency department patient visit Dr. Nathaly Lainez Work Phone: [facility] Start: 09-09-2022 End: 09-10-2022 Dr. Nathaly Lainez Work Phone: [facility] Start: 09-08-2022 Non-patient / Non-visit Dr. Rashida Lainez Work Phone: [facility] Start: 09-08-2022 End: 09-08-[address] Nathaly Lainez Work Phone: [facility] Work Phone: Start: 09-08-2022 End: 09-08-[address] Nathaly Lainez Work Phone: [facility] Start: 09-08-2022 End: 09-08-2022 Dr. Nathaly Lainez Work Phone: [facility] Start: 09-05-2022 Non-patient / Non-visit Dr. Rashida Lainez Work Phone: [facility] Start: 09-05-2022 End: 09-05-2022 Emergency department patient visit Dr. Nathaly Lainez Work Phone: [facility] Start: 09-05-2022 End: 09-05-2022 Dr. Nathaly Lainez Work Phone: [facility] Start: 09-04-2022 ambulatory JEISON FORDE DPM Faci lity:R Start: 09-02-2022 Non-patient / Non-visit Dr. Rashida Lainez Work Phone: [facility] Start: 09-02-2022 Dr. Nathaly reyes Work Phone: [facility] Start: 09-01-2022 Non-patient / Non-visit Dr. Rashida Lainez Work Phone: [facility] Start: 09-01-2022 Dr. Nathaly reyes Work Phone: [facility] Start: 08-31-2022 Non-patient / Non-visit Dr. Rashida Lainez Work Phone: [facility] Start: 08-31-2022 Dr. Nathaly reyes Work Phone: [facility] Start: 08-31-2022 Non-patient / Non-visit Dr. Rashida Lainez Work Phone: [facility] Start: 08-31-2022 Dr. Nathaly reyes Work Phone: [facility] Start: 08-30-2022 Non-patient / Non-visit Dr. Rashida Lainez Work Phone: [facility] Start: 08-30-2022 Dr. Nathaly reyes Work Phone: [phone] [place] [address] Inpatient Physicians Start: 08-30-2022 End: 09-02-2022 Evaluation and management of inpatient Dr. Nathaly Lainez Work Phone: [phone] [address] [place], [place] [address]Medical Surgical 3 Start: 08-30-2022 End: 09-02-2022 Dr. Nathaly Lainez Work Phone: [phone] [address] [place], [place] [address]Medical [facility] 3 Start: 08-23-2022 End: 08-23-[address] Nathaly Lainez Work Phone: [phone] [place] [address] Vascular Surgery Start: 08-23-2022 End: 08-23-2022 Dr. Nathaly Lainez Work Phone: [phone] [place] [address] Vascular Surgery Start: 08-17-2022 Non-patient / Non-visit Dr. Rashida Lainez Work Phone: [phone] [place] [address]-BVS Start: 08-17-2022 End: 08-17-[address] Nathaly Lainez Work Phone: [phone] [place] [address]-Cardiovascular Services Start: 08-17-2022 End: 08-17-2022 Dr. Nathaly Lainez Work Phone: [phone] [place] [address]-BVS Start: 08-14-2022 End: 08-14-2022 Emergency department patient visit Dr. Nathaly Lainez Work Phone: [phone] [place] [address]-Emergency Department Start: 08-14-2022 End: 08-14-2022 Dr. Nathaly Lainez Work Phone: [phone] [place] [address]-Emergency Department Start: 08-10-2022 Non-patient / Non-visit Dr. Rashida Lainez Work Phone: [phone] [place] [address]-BVS Start: 08-10-2022 Dr. [facility] Start: 08-10-2022 End: 08-10-2022 Admission to same day surgery center Dr. Nathaly Lainez Work Phone: [facility]Ergonomics Technician/Special Procedures Start: 08-10-2022 End: 08-10-[address] Nathaly Lainez Work Phone: [facility] Work Phone: Start: 08-10-2022 End: 08-10-2022 Dr. Nathaly Lainez Work Phone: [facility]onomics Technician/Special Procedures Start: 08-09-2022 End: 08-09-[address] Nathaly Lainez Work Phone: [facility] Vascular Surgery Start: 08-09-2022 End: 08-09-2022 Dr. Nathaly Lainez Work Phone: [facility] Vascular Surgery Start: 08-06-2022 End: 08-06-2022 Emergency department patient visit Dr. Nathaly Lainez Work Phone: [facility] Start: 08-06-2022 End: 08-06-2022 Dr. Nathaly Lainez Work Phone: [facility] Start: 08-03-2022 End: 08-03-2022 Emergency department patient visit Dr. Nathaly Lainez Work Phone: [facility] Start: 08-03-2022 End: 08-03-2022 Dr. Nathaly Lainez Work Phone: [facility] Start: 07-25-2022 End: 07-25-2022 Emergency department patient visit Dr. Nathaly Lainez Work Phone: [facility] Start: 07-25-2022 End: 07-25-2022 Dr. Nathaly Lainez Work Phone: [facility]-Emergency Department Start: 06-29-2022 End: 06-29-[address] Nathaly Lainez Work Phone: [facility]Outpatient Bone Densitometry Start: 06-29-2022 End: 06-29-2022 Dr. Nathaly Lainez Work Phone: [facility] Start: 06-21-[address] Nathaly Lainez Work Phone: [facility] Start: 06-21-2022 Dr. Nathaly reyes Work Phone: [facility] Start: 06-08-2022 End: 06-08-2022 Postop follow up visit related to original px Jerry Jones PA-C Work Phone: [facility] [place] Comment on above: Closed 3-part fractu re of proximal humerus, right, with routine healing, subsequent encounter (Primary Dx) Start: 05-19-2022 End: 05-19-2022 Emergency department patient visit Dr. Nathaly Lainez Work Phone: [facility] Start: 05-19-2022 End: 05-19-2022 Dr. Nathaly Lainez Work Phone: [facility] Start: 05-09-2022 End: 05-10-2022 Emergency department patient visit Dr. Nathaly Lainez Work Phone: [facility] Start: 05-02-2022 End: 05-03-2022 ambulatory [facility] Start: 04-24-2022 End: 04-24-[address] Nathaly Lainez Work Phone: [facility] Orthopaedic Specia Start: 04-18-2022 End: 04-18-2022 Emergency department patient visit [facility] Start: 04-17-2022 End: 04-17-2022 Emergency department patient visit [facility] Start: 03-27-2022 End: 03-27-2022 Emergency department patient visit [facility] Start: 08-13-2021 End: 08-13-2021 Emergency department patient visit Alex Tapia [facility] Emergency 16 Start: 08-25-2019 End: 08-25-2019 Patient encounter procedure [facility] Start: 07-20-2018 End: 07-21-[address] [facility] Start: 06-08-2018 End: 06-12-2018 Evaluation and management of inpatient [facility] Start: 12-14-2017 End: 12-14-2017 Emergency department patient visit UNKNOWN PROVIDER [facility] Start: 11-30-2017 End: 12-05-2017 Patient encounter procedure [facility] Procedures Date Procedure Procedure Detail Performing Clinician Start: 12-12-2024 X-ray of ankle, three or more views Zohreh Terence SERVICE DESK DIRECTOR-C Work Phone: Start: 12-12-2024 X-ray of foot, three or more views Zohreh Terence SERVICE DESK DIRECTOR-C Work Phone: Start: 09-29-2024 Blood count smear mcrscp w/mnl difrntl wbc count Zohreh Mckeon SERVICE DESK DIRECTOR-C Work Phone: Start: 09-29-2024 Estimated creatinine clearance Zohreh Mckeon SERVICE DESK DIRECTOR-C Work Phone: Start: 09-29-2024 Mean corpuscular hemoglobin concentration determination Zohreh Terence SERVICE DESK DIRECTOR-C Work Phone: Start: 09-29-2024 Nucleated red blood cell count procedure Zohreh Terence SERVICE DESK DIRECTOR-C Work Phone: Start: 09-29-2024 Platelet mean volume determination Zohreh Terence SERVICE DESK DIRECTOR-C Work Phone: Start: 09-29-2024 Triacylglycerol lipase measurement Zohreh Terence SERVICE DESK DIRECTOR-C Work Phone: Start: 09-29-2024 Urine microscopy: red cells Zohrehdmitriy Mckeon SERVICE DESK DIRECTOR-C Work Phone: Start: 09-29-2024 Urnls dip stick/tablet reagent auto microscopy Zohreh Terence SERVICE DESK DIRECTOR-C Work Phone: Start: 09-21-2024 Urine microscopy: red cells Zohreh Mckeon SERVICE DESK DIRECTOR-C Work Phone: Start: 09-21-2024 Urnls dip stick/tablet reagent auto microscopy Zohreh Mckeon SERVICE DESK DIRECTOR-C Work Phone: Start: 09-21-2024 Estimated creatinine clearance Zohreh Mckeon SERVICE DESK DIRECTOR-C Work Phone: Start: 09-21-2024 Triacylglycerol lipase measurement Zohreh Mckeon SERVICE DESK DIRECTOR-C Work Phone: Start: 09-21-2024 Blood count smear mcrscp w/mnl difrntl wbc count Zohreh Mckeon SERVICE DESK DIRECTOR-C Work Phone: Start: 09-21-2024 Mean corpuscular hemoglobin concentration determination Zohreh Mckeon SERVICE DESK DIRECTOR-C Work Phone: Start: 09-21-2024 Nucleated red blood cell count procedure Zohreh Mckeon SERVICE DESK DIRECTOR-C Work Phone: Start: 09-21-2024 Platelet mean volume determination Zohreh Mckeon SERVICE DESK DIRECTOR-C Work Phone: Start: 09-16-2024 Blood count smear mcrscp w/mnl difrntl wbc count Zohreh Mckeon SERVICE DESK DIRECTOR-C Work Phone: Start: 09-16-2024 Mean corpuscular hemoglobin concentration determination Zohreh Mckeon SERVICE DESK DIRECTOR-C Work Phone: Start: 09-16-2024 Nucleated red blood cell count procedure Zohreh Mckeon SERVICE DESK DIRECTOR-C Work Phone: Start: 09-16-2024 Platelet mean volume determination Zohreh Mckeon SERVICE DESK DIRECTOR-C Work Phone: Start: 09-16-2024 Estimated creatinine clearance Zohreh Mckeon SERVICE DESK DIRECTOR-C Work Phone: Start: 09-12-2024 Urine microscopy: red cells Zohreh Mckeon SERVICE DESK DIRECTOR-C Work Phone: Start: 09-12-2024 Urnls dip stick/tablet reagent auto microscopy Zohreh Mckeon SERVICE DESK DIRECTOR-C Work Phone: Start: 09-12-2024 Urine culture [facility] Work Phone: Start: 09-11-2024 Plain X-ray abdomen [facility] Work Phone: Start: 09-09-2024 Urine culture [facility] Work Phone: Start: 09-09-2024 Serum inorganic phosphate measurement Zohreh Mckeon SERVICE DESK DIRECTOR-C Work Phone: Start: 09-08-2024 Blood culture [facility] Work Phone: Start: 09-08-2024 Clostridium difficile detection [facility] Work Phone: Start: 09-08-2024 Nucleic acid assay [facility] Work Phone: Start: 09-08-2024 Iadna-dna/rna gi pthgn multiplex probe tq 6-11 Zohreh Mckeon SERVICE DESK DIRECTOR-C Work Phone: Start: 09-08-2024 Parathyroid hormone measurement Zohreh Mckeon SERVICE DESK DIRECTOR-C Work Phone: Start: 09-08-2024 Vitamin D, 25-hydroxy measurement Zohreh Mckeon SERVICE DESK DIRECTOR-C Work Phone: Start: 09-08-2024 Calcium measurement Zohreh Mckeon SERVICE DESK DIRECTOR-C Work Phone: Start: 09-07-2024 Computed tomography of abdomen and pelvis with intravenous contrast [facility] Work Phone: Start: 09-07-2024 Triacylglycerol lipase measurement Zohreh Mckeon SERVICE DESK DIRECTOR-C Work Phone: Start: 09-05-2024 Blood count smear mcrscp w/mnl difrntl wbc count Zohreh Mckeon SERVICE DESK DIRECTOR-C Work Phone: Start: 09-05-2024 Estimated creatinine clearance Zohreh Mckeon SERVICE DESK DIRECTOR-C Work Phone: Start: 09-05-2024 Mean corpuscular hemoglobin concentration determination Zohreh Mckeon SERVICE DESK DIRECTOR-C Work Phone: Start: 09-05-2024 Nucleated red blood cell count procedure Zohreh Mckeon SERVICE DESK DIRECTOR-C Work Phone: Start: 09-05-2024 Platelet mean volume determination Zohreh WOODC Work Phone: Start: 09-05-2024 Triacylglycerol lipase measurement Zohreh ELIZABETH Work Phone: Start: 09-02-2024 Blood count smear mcrscp w/mnl difrntl wbc count Zohreh WOODC Work Phone: Start: 09-02-2024 Estimated creatinine clearance Zohreh ELIZABETH Work Phone: Start: 09-02-2024 Mean corpuscular hemoglobin concentration determination Zhoreh ELIZABETH Work Phone: Start: 09-02-2024 Nucleated red blood cell count procedure Zohreh ELIZABETH Work Phone: Start: 09-02-2024 Platelet mean volume determination Zohreh ELIZABETH Work Phone: Start: 09-02-2024 Serum inorganic phosphate measurement Zohreh WOOD Work Phone: Start: 08-29-2024 Iadna-dna/rna gi pthgn multiplex probe tq 6-11 Zohreh Mckeon [facility] Work Phone: Start: 08-29-2024 Clostridium difficile detection [facility] Work Phone: Start: 08-29-2024 Nucleic acid assay [facility] Work Phone: Start: 08-27-2024 MRI of lumbar spine [facility] Work Phone: Start: 08-27-2024 Calculation of international normalized ratio Zohreh WOOD Work Phone: Start: 08-26-2024 CT angiography of lower limb [facility] Work Phone: Start: 08-26-2024 Assay of lactate Zohreh Mckeon [facility] Work Phone: Start: 08-26-2024 Plain chest X-ray [facility] Work Phone: Start: 08-01-2024 Computed tomography of abdomen and pelvis with intravenous contrast [facility] Work Phone: Start: 08-01-2024 Urine culture [facility] Work Phone: Start: 07-02-2024 CT of abdomen and pelvis with oral contrast [facility] Work Phone: Start: 06-29-2024 Plain chest X-ray [facility] Work Phone: Start: 06-29-2024 Computed tomography of abdomen and pelvis with intravenous contrast [facility] Work Phone: Start: 06-29-2024 Urine culture [facility] Work Phone: Start: 04-25-2024 Computed tomography of abdomen and pelvis with intravenous contrast [facility] Work Phone: Start: 10-15-2023 Plain x-ray of pelvis and lower extremity Start: 09-02-2023 Antibody screen IBETH ALEJANDRO Comment on above: Order Comment: Specimen Type: BLOOD SPEC IMEN Ordering Facility: [facility] Address: [address] [place] [address] Performed By: #### 5 [id number] #### [facility] CLIA [id number] [address] [place] [address] [place] Start: 09-02-2023 Plain chest X-ray [facility] Work Phone: Start: 09-02-2023 Plain x-ray of pelvis and lower extremity [facility] Work Phone: Start: 06-19-2023 Plain x-ray of pelvis and lower extremity [facility] Work Phone: Start: 06-19-2023 Radiologic examination of knee [facility] Work Phone: Start: 06-15-2023 Radiography of ankle [facility] Work Phone: Start: 06-12-2023 CT angiography of chest with contrast [facility] Work Phone: Start: 05-26-2023 Plain chest X-ray [facility] Work Phone: Start: 05-22-2023 X-ray of both feet [facility] Work Phone: Start: 05-03-2023 SARS-CoV-2 & FLU Antigen (Rapid) [facility] Work Phone: Start: 05-03-2023 Viral antigen assay [facility] Work Phone: Start: 05-03-2023 Plain chest X-ray [facility] Work Phone: Start: 02-02-2023 CT angiography of chest with contrast [facility] Work Phone: Start: 02-02-2023 Plain chest X-ray [facility] Work Phone: Start: 01-01-2023 SARS-CoV-2 & FLU Antigen (Rapid) [facility] Work Phone: Start: 01-01-2023 CT angiography of chest with contrast [facility] Work Phone: Start: 10-01-2022 Diagnostic radiography of abdomen Dr. Nathaly Lainez Work Phone: Start: 09-18-2022 Plain x-ray of pelvis and lower extremity Dr. Nathaly Lainez Work Phone: Start: 09-11-2022 Computed tomography of abdomen and pelvis with intravenous contrast Dr. Nathaly Lainez Work Phone: Start: 09-09-2022 X-ray of both feet Dr. Nathaly Lainez Work Phone: Start: 09-05-2022 X-ray of both feet Dr. Nathaly Lainez Work Phone: Start: 08-31-[address] Nathaly Lainez Work Phone: Start: 08-30-2022 Plain chest X-ray Dr. Nathaly Lainez Work Phone: Start: 08-30-2022 X-ray of both feet Dr. Nathaly Lainez Work Phone: Start: 08-06-2022 CT of abdominal aorta with contrast Dr. Nathaly Lainez Work Phone: Start: 08-03-2022 Computed tomography of abdomen and pelvis with intravenous contrast Dr. Nathaly Lainez Work Phone: Start: 08-03-2022 Plain chest X-ray Dr. Nathaly Lainez Work Phone: Start: 06-29-2022 Dual energy X-ray absorptiometry Dr. Nathaly Lainez Work Phone: Start: 04-24-2022 Plain X-ray of shoulder Dr. Nathaly saldana Work Phone: Start: 04-18-2022 Plain X-ray of shoulder Start: 06-08-2020 Follow-up visit Start: 12-03-2019 Follow-up visit Start: 11-11-2019 Follow-up visit Start: 12-14-2017 Electrocardiogram [facility] Start: 11-30-2017 End: 11-30-2017 Electrocardiogram [facility] Start: 02-01-2016 Colonoscopy Diya May MD Work Phone: Bacteria identified in Blood by Culture Dr. Nathaly Lainez Work Phone: History of cholecystectomy Histo ry of cholecystectomy SARS-CoV-2 & FLU Ant igen (Rapid) Dr. Nathaly Lainez Work Phone: SARS-CoV-2 & FLU Ant igen (Rapid) Dr. Nathaly Lainez Work Phone: Urine culture Dr. Nathaly reyes Work Phone: Dr. Nathaly servin Work Phone: Plan of Treatment Date Care Activity Detail Author Start: 12-14-2027 Urine microalbumin profile DTaP,Tdap,Td Vaccine (2 - Td or Tdap) [facility] Start: 12-12-2024 [facility] Start: 09-29-2024 End: 09-29-2024 [facility] Start: 09-21-2024 [facility] Start: 09-16-2024 Patient discharge [facility] Start: 09-16-2024 [facility] Start: 09-14-2024 Consultation [facility] Start: 09-14-2024 Care planning and pr oblem solving actions [facility] Start: 09-11-2024 Consultation [facility] Start: 09-09-2024 Admission procedure [facility] Start: 09-08-2024 [facility] Start: 09-07-2024 Following clinical pathway protocol [facility] Start: 09-07-2024 Assessment of risk o f venous thromboembolism [facility] Start: 09-07-2024 Care regimes management [facility] Start: 09-07-2024 Fall prevention [facility] Start: 09-07-2024 Inhalation therapy procedure [facility] Start: 09-07-2024 Insertion of cathete r into peripheral vein [facility] Start: 09-07-2024 Measuring intake and output [facility] Start: 09-07-2024 Notification of physician [facility] Start: 09-07-2024 Providing care accor ding to standard [facility] Start: 09-07-2024 Provision of activit y privileges [facility] Start: 09-07-2024 Referral to occupati onal therapist [facility] Start: 09-07-2024 Referral to service [facility] Start: 09-07-2024 Tobacco use cessatio n education [facility] Start: 09-07-2024 End: 09-07-2024 [facility] Start: 09-07-2024 Verification routine [facility] Start: 09-07-2024 Admission procedure [facility] Start: 09-07-2024 Hospital admission, emergency, from emergency room, medical nature [facility] Start: 09-07-2024 Serum inorganic phos phate measurement [facility] Start: 09-07-2024 Patient referral to dietitian [facility] Start: 09-05-2024 [facility] Start: 09-02-2024 Referral to service [facility] Start: 09-02-2024 Patient discharge [facility] Start: 09-01-2024 [facility] Start: 08-27-2024 [facility] Start: 08-26-2024 Following clinical pathway protocol [facility] Start: 08-26-2024 Assessment of risk o f venous thromboembolism [facility] Start: 08-26-2024 Care regimes management [facility] Start: 08-26-2024 Incentive spirometry [facility] Start: 08-26-2024 Insertion of cathete r into peripheral vein [facility] Start: 08-26-2024 Measuring intake and output [facility] Start: 08-26-2024 Notification of physician [facility] Start: 08-26-2024 Providing care accor ding to [facility] Start: 08-26-2024 Referral to occupati onal therapist [facility] Start: 08-26-2024 Referral to service [facility] Start: 08-26-2024 Referral to vascular surgeon [facility] Start: 08-26-2024 Vital signs measurements [facility] Start: 08-26-2024 End: 08-26-2024 [facility] Start: 08-26-2024 Verification routine [facility] Start: 08-26-2024 Admission procedure [facility] Start: 08-26-2024 Hospital admission, emergency, from emergency room, medical nature [facility] Start: 08-26-2024 Patient referral to dietitian [facility] Start: 08-01-2024 [facility] Start: 07-03-2024 Patient discharge [facility] Start: 07-01-2024 Consultation [facility] Start: 06-30-2024 [facility] Start: 06-30-2024 [facility] Start: 06-30-2024 Referral to occupati onal therapist [facility] Start: 06-30-2024 Referral to service [facility] Start: 06-29-2024 Assessment of risk o f venous thromboembolism [facility] Start: 06-29-2024 Care regimes management [facility] Start: 06-29-2024 Insertion of cathete r into peripheral vein [facility] Start: 06-29-2024 Measuring intake and output [facility] Start: 06-29-2024 Notification of physician [facility] Start: 06-29-2024 Providing care accor ding to [facility] Start: 06-29-2024 Provision of activit y privileges [facility] Start: 06-29-2024 End: 06-29-2024 [facility] Start: 06-29-2024 End: 06-29-2024 Following clinical pathway protocol [facility] Start: 06-29-2024 Admission procedure [facility] Start: 04-29-2024 Patient discharge [facility] Start: 04-29-2024 Care planning and pr oblem solving actions [facility] Start: 04-29-2024 [facility] Start: 04-28-2024 Wound care [facility] Start: 04-26-2024 End: 04-27-2024 [facility] Start: 04-25-2024 Care planning and pr oblem solving actions [facility] Start: 04-25-2024 Assessment of risk o f venous thromboembolism [facility] Start: 04-25-2024 Care regimes management [facility] Start: 04-25-2024 Consultation for treatment [facility] Start: 04-25-2024 Inhalation therapy procedure [facility] Start: 04-25-2024 Insertion of cathete r into peripheral vein [facility] Start: 04-25-2024 Notification of physician [facility] Start: 04-25-2024 Patient referral to dietitian [facility] Start: 04-25-2024 Providing care accor ding to standard [facility] Start: 04-25-2024 Provision of activit y privileges [facility] Start: 04-25-2024 Referral to occupati onal therapist [facility] Start: 04-25-2024 Referral to service [facility] Start: 04-25-2024 End: 04-25-2024 [facility] Start: 04-25-2024 Care of central veno us catheter [facility] Start: 04-25-2024 Following clinical pathway protocol [facility] Start: 04-25-2024 Admission procedure [facility] Start: 04-25-2024 Patient referral to dietitian [facility] Start: 02-21-2024 End: 02-21-2024 Patient encounter procedure 02/21/2024 1:30 PM EDT Office Visit Endocrine Surgery [address] [place] [address] Gerda Rivero MD [address] [address] [facility] Comment on above: [facility] Start: 02-03-2024 Covid-19 Vaccine ( season) Covid-19 Vaccine ( season) [facility] Start: 02-03-2024 Influenza vaccination Influenza Vacc ine (#1) [facility] Start: 12-04-2023 Hemoglobin A1c measurement HbA1C [facility] Start: 10-23-2023 End: 10-23-2023 Patient encounter procedure 10/23/2023 1:15 PM EDT Office Visit [facility] [address] [place] [address] Gadiel Washington PA-C [address] [place] [address] PO [facility] Comment on above: PO Start: 09-02-2023 End: 09-02-2023 [facility] Start: 06-19-2023 [facility] Start: 06-16-2023 Patient discharge [facility] Start: 06-15-2023 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 to army senior officer [facility] Start: 06-15-2023 Care regimes management [facility] Start: 06-13-2023 Blood chemistry [facility] Start: 06-13-2023 Following clinical pathway protocol [facility] Start: 06-13-2023 Assessment of risk o f venous thromboembolism [facility] Start: 06-13-2023 Fluid restriction [facility] Start: 06-13-2023 Insertion of cathete r into peripheral vein [facility] Start: 06-13-2023 Measuring intake and output [facility] Start: 06-13-2023 Oxygen therapy [facility] Start: 06-13-2023 Providing care accor ding to standard [facility] Start: 06-13-2023 Provision of activit y privileges [facility] Start: 06-13-2023 Referral to occupati onal therapist [facility] Start: 06-13-2023 Referral to service [facility] Start: 06-13-2023 End: 06-13-2023 [facility] Start: 06-13-2023 Verification routine [facility] Start: 06-13-2023 Admission procedure [facility] Start: 06-13-2023 Patient referral to dietitian [facility] Start: 06-12-2023 [facility] Start: 05-26-2023 [facility] Start: 05-11-2023 Blood chemistry [facility] Start: 05-10-2023 Blood chemistry [facility] Start: 05-09-2023 Blood chemistry [facility] Start: 05-08-2023 Blood chemistry [facility] Start: 05-07-2023 Patient discharge [facility] Start: 05-04-2023 Patient referral [facility] Work Phone: Start: 05-03-2023 [facility] Start: 05-03-2023 Referral to resume writer [facility] Start: 05-03-2023 Ambulation without limitation [facility] Start: 05-03-2023 Assessment of risk o f venous thromboembolism [facility] Start: 05-03-2023 Care regimes management [facility] Start: 05-03-2023 Inhalation therapy procedure [facility] Start: 05-03-2023 Insertion of cathete r into peripheral vein [facility] Start: 05-03-2023 Measuring intake and output [facility] Start: 05-03-2023 Notification of physician [facility] Start: 05-03-2023 Oxygen therapy [facility] Start: 05-03-2023 Providing care accor ding to standard [facility] Start: 05-03-2023 Referral to occupati onal therapist [facility] Start: 05-03-2023 Referral to service [facility] Start: 05-03-2023 [facility] Start: 05-03-2023 Following clinical pathway protocol [facility] Start: 05-03-2023 Verification routine [facility] Start: 05-03-2023 Admission procedure [facility] Start: 05-03-2023 Hospital admission, emergency, from emergency room, medical nature [facility] Start: 05-03-2023 [facility] Start: 05-03-2023 [facility] Start: 05-03-2023 Consultation [facility] Start: 05-03-2023 Patient referral to dietitian [facility] Start: 02-03-2023 Patient discharge [facility] Start: 02-02-2023 Following clinical pathway protocol [facility] Start: 02-02-2023 Ambulation without limitation [facility] Start: 02-02-2023 Assessment of risk o f venous thromboembolism [facility] Start: 02-02-2023 Care regimes management [facility] Start: 02-02-2023 Insertion of cathete r into peripheral vein [facility] Start: 02-02-2023 Measuring intake and output [facility] Start: 02-02-2023 Notification of physician [facility] Start: 02-02-2023 Providing care accor ding to standard [facility] Start: 02-02-2023 [facility] Start: 02-02-2023 Oxygen therapy [facility] Start: 02-02-2023 Verification routine [facility] Start: 02-02-2023 Admission procedure [facility] Start: 02-02-2023 [facility] Start: 02-02-2023 Covid-19 Vaccine () Covid-19 Vaccine () [facility] Start: 02-02-2023 Brain natriuretic pe ptide measurement [facility] Start: 02-02-2023 Patient referral to [facility] Start: 01-03-2023 Patient discharge [facility] Start: 01-01-2023 Ambulation without limitation [facility] Start: 01-01-2023 Assessment of risk o f venous thromboembolism [facility] Start: 01-01-2023 Care regimes management [facility] Start: 01-01-2023 Catheterization of vein [facility] Start: 01-01-2023 Insertion of cathete r into peripheral vein [facility] Start: 01-01-2023 Measuring intake and output [facility] Start: 01-01-2023 Notification of physician [facility] Start: 01-01-2023 Providing care accor ding to standard [facility] Start: 01-01-2023 [facility] Start: 01-01-2023 Admission procedure [facility] Start: 01-01-2023 Following clinical pathway protocol [facility] Start: 01-01-2023 [facility] Start: 09-02-2022 Patient discharge [facility] Start: 09-01-2022 Referral to service [facility] Start: 09-01-2022 Wound care [facility] Start: 09-01-2022 [facility] Start: 08-31-2022 Amputation of toe Amputation T oe/Foot (Right) [facility] Start: 08-31-2022 [facility] Start: 08-31-2022 Blood chemistry [facility] Start: 08-30-2022 Care regimes management [facility] Start: 08-30-2022 Notification of physician [facility] Start: 08-30-2022 [facility] Start: 08-30-2022 Assessment of risk o f venous thromboembolism [facility] Start: 08-30-2022 Consultation [facility] Start: 08-30-2022 Consultation for treatment [facility] Start: 08-30-2022 Insertion of cathete r into peripheral vein [facility] Start: 08-30-2022 Patient referral to [facility] Start: 08-30-2022 Providing care accor ding to standard [facility] Start: 08-30-2022 Referral to service [facility] Start: 08-30-2022 Tobacco use cessatio n education [facility] Start: 08-30-2022 [facility] Start: 08-30-2022 Following clinical pathway protocol [facility] Start: 08-30-2022 Admission procedure [facility] Start: 08-30-2022 Verification routine [facility] Start: 08-30-2022 [facility] Start: 08-30-2022 End: 08-30-2022 Blood culture [facility] Start: 08-09-2022 Patient referral [facility] Work Phone: Start: 07-20-2022 End: 07-20-2022 Patient encounter procedure 07/20/2022 Office Visit Orthopedic Surgery Jerry Jones PA-C 1 [facility] [address] [place] [address] [facility] Start: 07-20-2022 End: 07-20-2022 Documentation procedure 07/20/[address] [facility] Start: 05-19-2022 [facility] Start: 02-02-2022 Influenza vaccination Influenza Vacc ine (#1) [facility] Start: 08-23-2021 Shingrix Vaccine (1 of 2) Mcmillan grix Vaccine (1 of 2) [facility] Start: 08-23-2021 Zoster Vaccines (1 of 2) Zoste r Vaccines (1 of 2) [facility] Start: 02-23-2021 COVID-19 Vaccine (3 - Booster for Moderna series) COVID-19 Vaccine (3 - Booster for Moderna series) [facility] Start: 2020 Hepatitis B surface antibody level LDL Cholesterol [facility] Start: 03-14-2020 Annual PCP Team Supervisor Coating yamil Disease Visit Annual PCP Team Chronic Disease Visit [facility] Start: 06-19-2019 Screening for malign ant neoplasm of cervix [facility] Start: 06-18-2019 Screening for malign ant neoplasm of cervix Pap Testing [facility] Start: 01-31-2019 Screening for malign ant neoplasm of colon [facility] Start: 08-23-2016 Screening for malign ant neoplasm of colon [facility] Start: 10-14-2013 Screening for malign ant neoplasm of breast Mammogram Screening [facility] Start: 2011 Screening for malign ant neoplasm of breast Mammogram [facility] Start: 08-23-2001 Screening for malign ant neoplasm of cervix [facility] Start: 08-23-1992 Screening for malign ant neoplasm of cervix Pap Smear [facility] Start: 08-23-1990 DTaP/Tdap/Td Vaccine s (1 - Tdap) DTaP/Tdap/Td Vaccines (1 - Tdap) [facility] Start: 08-23-1990 Hepatitis B Vaccine (1 of 3 - 19+ 3-dose series) Hepatitis B Vaccine (1 of 3 - 19+ 3-dose series) [facility] Start: 08-23-1990 Urine screening for protein Diabetes: Urine Protein Screening [facility] Start: 08-23-1989 BP Controlled (<130/80) BP Controlle d (<130/80) [facility] Start: 08-23-1989 Hepatitis C screening Hepatitis C Sc reening [facility] Start: 08-23-1989 HIV screening HIV Screening [facility] Start: 08-23-1981 Diabetic foot examination [facility] Start: 08-23-1981 Glaucoma screening [facility] Start: 08-23-1981 Hepatitis B screening Urine Albumin:Creatinine Ratio [facility] Start: 08-23-1981 Preventive dental service Diabetes: Dental Exam [facility] Start: 08-23-1977 Pneumococcal vaccination Pneum ococcal Vaccine (1 of 2 - PCV) [facility] Start: 08-23-1977 Pneumococcal Vaccine : Pediatrics (0 to 5 Years) and At-Risk Patients (6 to 64 Years) (1 - PCV) Pneumococcal Vaccine: Pediatrics (0 to 5 Years) and At-Risk Patients (6 to 64 Years) (1 - PCV) [facility] Start: 08-23-1972 MMR Vaccines (1 of 1 - Standard series) MMR Vaccines (1 of 1 - Standard series) [facility] Start: 1971 Hemoglobin A1c measurement Diabetes: Hemoglobin A1C [facility] Start: 1971 Hepatitis B Vaccines (1 of 3 - 3-dose series) Hepatitis B Vaccines (1 of 3 - 3-dose series) [facility] Start: 1971 HIV screening HIV Screening [facility] Start: 1971 Lipid panel Lipid Panel [facility] Start: 1971 Screening for malign ant neoplasm of colon [facility] Anion gap measurement [facility] Anion gap measurement [facility] Ankle brachial press ure index [facility] Ankle brachial press ure index [facility] Bacteria identified in Blood by Culture Blood Culture [facility] Bacteria identified in Blood by Culture Blood Culture [facility] Bacteria identified in Urine by Culture Urine Culture [facility] Bilirubin measuremen t, urine [facility] BUN/Creatinine ratio [facility] BUN/Creatinine ratio [facility] Calcium [Mass/volume ] in 24 hour Urine [facility] Calcium [Mass/volume ] in Serum or Plasma [facility] Calcium [Mass/volume ] in Serum or Plasma [facility] Carbon dioxide, tota l [Moles/volume] in Serum or Plasma [facility] Carbon dioxide, tota l [Moles/volume] in Serum or Plasma [facility] Chloride [Moles/volu me] in Serum or Plasma [facility] Chloride [Moles/volu me] in Serum or Plasma [facility] Creatinine [Moles/vo lume] in Serum or Plasma [facility] Creatinine [Moles/vo lume] in Serum or Plasma [facility] Glucose [Mass/volume ] in Serum or Plasma [facility] Glucose [Mass/volume ] in Serum or Plasma [facility] Hematocrit [Volume Fraction] of Blood [facility] Hematocrit [Volume Fraction] of Blood [facility] Hemoglobin [Mass/vol ume] in Blood [facility] Hemoglobin [Mass/vol ume] in Blood [facility] Hemoglobin [Presence ] in Urine [facility] Hemoglobin A1c/Hemoglobin.total in Blood [facility] Lactic acid measurement [facility] Leukocytes [#/volume ] in Blood [facility] Leukocytes [#/volume ] in Blood [facility] Magnesium [Mass/volu me] in Serum or Plasma [facility] Mean corpuscular hemoglobin concentration determination [facility] Mean corpuscular hemoglobin concentration determination [facility] Mean corpuscular hemoglobin determination [facility] Mean corpuscular hemoglobin determination [facility] Measurement of keton es in urine using dipstick [facility] Measurement of renal function [facility] Measurement of renal function [facility] Microscopic urinalysis [facility] Neutrophil count [facility] Neutrophil count [facility] Neutrophil percent differential count [facility] Neutrophil percent differential count [facility] Patient Education [facility] Work Phone: Patient referral [facility] Work Phone: pH of Urine [facility] Platelets [#/volume] in Blood [facility] Platelets [#/volume] in Blood [facility] Potassium [Moles/vol ume] in Serum or Plasma [facility] Potassium [Moles/vol ume] in Serum or Plasma [facility] Radionuclide gastric emptying study [facility] Red blood cell count [facility] Red blood cell count [facility] Red cell distributio n width determination [facility] Red cell distributio n width determination [facility] Sodium [Moles/volume ] in Serum or Plasma [facility] Sodium [Moles/volume ] in Serum or Plasma [facility] Specific gravity of Urine [facility] Urea nitrogen [Mass/volume] in Serum or Plasma [facility] Urea nitrogen [Mass/volume] in Serum or Plasma [facility] Urine blood test [facility] Urine dipstick for glucose [facility] Urine dipstick for leukocyte esterase [facility] Urine dipstick for nitrite [facility] Urine dipstick for protein [facility] Urine examination [facility] Urine microscopy: epithelial cells [facility] Urine Microscopy: wh ite cells [facility] Urobilinogen [Presen ce] in Urine [facility] US Lower extremity artery [facility] Immunizations Immunization Date Immunization Notes Care Provider Fa [facility] 06-14-2023 influenza, injectabl e, quadrivalent, preservative free [facility] Work Phone: [facility] 06-14-2023 influenza virus vaccine, unspecified formulation Gerda Rivero MD Work Phone: [facility] 09-01-2022 influenza, injectabl e, quadrivalent, preservative free [facility] Work Phone: [facility] 09-01-2022 influenza, seasonal, injectable Dr. Nathaly Lainez Work Phone: [facility] 08-05-2021 influenza, injectabl e, quadrivalent, preservative free [facility] Work Phone: [facility] 08-05-2021 influenza, seasonal, injectable [facility] 08-05-2021 influenza virus vaccine, unspecified formulation Jerry Jonse PA-C Work Phone: [facility] 12-29-2020 Covid (Moderna) Dr. Nathaly Lowery Work Phone: [facility] 11-30-2020 Covid (Moderna) Dr. Nathaly Lowery Work Phone: [facility] 07-20-2018 influenza, injectabl e, quadrivalent, preservative free [facility] Work Phone: [facility] 07-20-2018 influenza, seasonal, injectable Dr. Nathaly Lainez Work Phone: [facility] Payers Date Payer Category Payer Self-pay [id number] 2022 Medicaid [id number] 2012 Medicaid [id number] 2012 Unknown [id number] 1971 Unknown [id number] 2.840.1.314457.3.579.2.903 1971 Unknown [id number] .16840.1.969261.3.579.2.627 1971 Unknown [id number] .840.1.086438.3.579.2.627 Unknown [employer] Unknown [id number] 2.16840.1.434771.3.579.2.462 Unknown [id number] 2.16840.1.583233.3.579.2.462 Unknown [id number] 2.16.840.1.955395.3.579.2.462 Unknown [id number] 2.16.840.1.774107.3.579.2.462 Unknown [id number] 2.16.840.1.144534.3.579.2.462 Unknown [id number] 2.16.840.1.753045.3.579.2.462 Unknown [id number] 2.16840.1.921972.3.579.2.462 Unknown [id number] 2.16840.1.532556.3.579.2.462 Unknown [id number] 2.16.840.1.557973.3.579.2.462 Unknown [id number] 2.16.840.1.661029.3.579.2.462 Unknown [id number] 2.16.840.1.442867.3.579.2.462 Unknown [id number] 2.16.840.1.438056.3.579.2.462 Unknown [id number] 2.16.840.1.487586.3.579.2.462 Unknown [id number] 2.16.840.1.402156.3.579.2.462 Unknown [id number] 2.16.840.1.662694.3.579.2.462 Unknown [id number] 2.16.840.1.618833.3.579.2.462 Unknown [id number] 2.16.840.1.265560.3.579.2.462 Unknown [id number] 2.16.840.1.091866.3.579.2.462 Unknown [id number] 2.16.840.1.422785.3.579.2.462 Unknown [id number] 2.16.840.1.261282.3.579.2.462 Unknown [id number] 2.16.840.1.451647.3.579.2.462 Unknown [id number] 2.16.840.1.736978.3.579.2.462 Unknown [id number] 2.16.840.1.792500.3.579.2.462 Unknown [id number] 2.16.840.1.621191.3.579.2.462 Unknown [id number] 2.16.840.1.441950.3.579.2.462 Unknown [id number] 2.16.840.1.117779.3.579.2.462 Unknown [id number] 2.16.840.1.484768.3.579.2.462 Unknown [id number] 2.16.840.1.350894.3.579.2.462 Unknown [id number] 2.16.840.1.451458.3.579.2.462 Unknown [id number] 2.16.840.1.712733.3.579.2.462 Unknown [id number] 2.16.840.1.439569.3.579.2.462 Unknown [id number] 2.16.840.1.903230.3.579.2.462 Unknown [id number] 2.16.840.1.279845.3.579.2.462 Unknown [id number] 2.16.840.1.126242.3.579.2.462 Unknown [id number] 2.16.840.1.939797.3.579.2.462 Unknown [id number] 2.16.840.1.914643.3.579.2.462 Unknown [id number] 2.16.840.1.610392.3.579.2.462 Unknown [id number] 2.16.840.1.001028.3.579.2.462 Unknown [id number] 2.16.840.1.957200.3.579.2.462 Unknown [id number] 2.16.840.1.509430.3.579.2.462 Unknown [id number] 2.16.840.1.727076.3.579.2.462 Unknown [id number] 2.16.840.1.879745.3.579.2.462 Unknown [id number] 2.16.840.1.970735.3.579.2.462 Unknown [id number] 2.16.840.1.737807.3.579.2.462 Unknown [id number] 2.16.840.1.153602.3.579.2.462 Unknown [id number] 2.840.1.107547.3.579.2.462 Unknown [id number] 2.840.1.816320.3.579.2.462 Unknown [id number] 2.840.1.215078.3.579.2.462 Unknown [id number] 2.840.1.997663.3.579.2.462 Unknown [id number] 2.840.1.651872.3.579.2.462 Unknown [id number] 2.840.1.108824.3.579.2.462 Unknown [id number] 2.840.1.643159.3.579.2.462 Unknown [id number] 2.840.1.895920.3.579.2.462 Unknown [id number] 2.840.1.402170.3.579.2.462 Unknown [id number] .840.1.350036.3.579.2.462 Unknown [id number] .840.1.744468.3.579.2.462 Unknown [id number] 2.840.1.084620.3.579.2.462 Unknown [id number] 2.840.1.892085.3.579.2.462 Unknown [id number] 2.840.1.028891.3.579.2.462 Unknown [id number] .840.1.022129.3.579.2.462 Unknown [id number] 2.840.1.687472.3.579.2.462 Unknown [id number] 2.840.1.438708.3.579.2.462 Unknown [id number] 2.840.1.302668.3.579.2.462 Unknown [id number] 2.16840.1.919784.3.579.2.462 Unknown [id number] 2.16.840.1.084044.3.579.2.462 Unknown [id number] 2.16.840.1.073808.3.579.2.462 Unknown [id number] 2.16.840.1.304890.3.579.2.462 Unknown [id number] 2.16840.1.604202.3.579.2.462 Unknown [id number] 2.16840.1.825239.3.579.2.462 Unknown [id number] 2.0.1.841021.3.579.2.462 Social History Date Type Detail Facility [facility] Start: 03-27-2022 End: 10-15-2023 Tobacco smoking consumption unknown [facility] Start: 08-13-2020 None [facility] Start: 08-13-2020 Spouse/ Signif icant Other [facility] Start: 08-11-2020 Cigarettes [facility] Start: 1970 Sex Assigned At Female W [facility] Start: 12-06-2018 End: 12-12-2024 Tobacco smoking status NHIS Smokes tobacco daily [facility] History of tobacco use Cigarette Smoker C [facility] Start: 12-06-2018 End: 09-03-2023 Cigarettes smoked current (pack per day) - Reported 0.5 [facility] [facility] Start: 12-06-2018 Tobacco use and exposure Smokeless tobacco non-user [facility] Start: 09-03-2023 End: 10-19-2023 Alcohol intake Current non-drinker of alcohol (finding) [facility] Start: 08-31-2020 End: 09-03-2023 [facility] Utilities [facility] Has the [employer], or [employer] threatened to shut off services in your home in past 12Mo No [facility] Attends [employer] Not on file [facility] Are you now , , , , never or living with a partner? [facility] How often to you hav e a drink containing alcohol? Never [facility] Do you feel stress - tense, restless, nervous, or anxious, or unable to sleep at night because your mind is troubled all the time - these days [OSQ] Very much [facility] (I/We) worried hugo er (my/our) food would run out before (I/we) got money to buy more. Never true [facility] Start: 10-18-2018 Education 12 [facility] Start: 1970 Sex Assigned At Not on file [facility] Start: 05-29-2022 End: 06-08-2022 Exposure to SARS-CoV-2 (event) Not sure [facility] [employer] Start: 05-23-2024 Tobacco smoking status Never s moked tobacco (finding) [facility] Sexual Orientation [facility]spital [facility] Start: 09-04-2022 End: 09-29-2024 Sex Female (finding) [facility] Start: 08-26-2024 End: 08-28-2024 Tobacco smoking status NHIS Current Heavy tobacco smoker [facility] NEGATED: Highlighted row [facility] Medical Equipment Procedure Code Equipment Code Equipment Origin al Text Equipment Identifier Dates ([id number]) [id number] FDA Start: 08-10-2022 [id number] FDA Start: 08-10-2022 ([id number]) [id number] FDA Start: 08-10-2022 Nail Tfn-Advance d 125d Short Green Titanium 170mm Intramedullary Cannulated - [id number] Start: 09-03-2023 Screw Tfn-Advanc ed 85mm Bone Sterile - [id number] Start: 09-03-2023 Screw 5mm 4.3mm T25 Full Thread Titanium 34mm Bone Lock Self Tap Blunt Tip - [id number] Start: 09-03-2023 Comment on above: Description: Was on worksheet and verified on intra-op x-ray. [id number], [id number], [id number], [id number], [id number] Start: 10-08-2018 Comment on above: Check sugars 4 times /d. Use as directed. Use with insulin inj ections Goals Date Patient Goal Desired Activity /State Personal health goal Personal health goal Comment on above: Formatting of this n ote might be different from the original. Work with Home Care nurse in regards to PICC line and Cefepime Formatting of this n ote might be different from the original. Wear CAM boot any time you are out of bed and expect to bear weight Formatting of this n ote might be different from the original. Daily: Inspect bottoms of feet and between toes for red spots, cuts, swelling, and blisters and to seek care early if foot injuries are noted. Functional Status Date Assessment Result Facility 09-16-2024 Functional status Ambulates;Bathroom Priv ilege [facility] Work Phone: 09-02-2024 Functional status Ambulates [facility] Work Phone: 07-03-2024 Functional status Ambulates [facility] Work Phone: 05-24-2024 Functional Status Activity Status ADL [facility] 05-23-2024 Functional Status Standard Safet y ID band on, Allergy Band on, Call device within reach, Bed in low position, Wheels locked, personal items within reach, Safety level maintained [facility] 04-29-2024 Functional status Ambulates [facility] Work Phone: 06-16-2023 Functional status Ambulates;Bedside Commo de [facility] Work Phone: 05-07-2023 Functional status Bedside Commode [facility] Work Phone: 02-03-2023 Functional status Activity Ability Indepe ndent [facility] Work Phone: 01-03-2023 Functional status Patient Activi ty Ambulates;Up ad maria m [facility] Work Phone: 01-03-2023 Functional status Standby Assist [facility] Work Phone: 01-02-2023 Functional status Tolerates Activity Well [facility] Work Phone: 09-02-2022 Functional status Ambulates;Bedside Commo de [facility] Work Phone: Mental Status Date Assessment Result Facility 09-29-2024 Cognitive function Awake;Alert;A ppropriate;Follow s Commands [facility] Work Phone: 09-16-2024 Cognitive function Voice/Name [facility] Work Phone: 09-02-2024 Cognitive function Voice/Name [facility] Work Phone: 07-11-2024 Cognitive function Voice/Name [facility] Work Phone: 07-10-2024 Cognitive function Awake;Alert;A ppropriate;Follow s Commands [facility] Work Phone: 07-07-2024 Cognitive function Awake;Alert;A ppropriate;Follow s Commands [facility] Work Phone: 07-05-2024 Cognitive function Voice/Name [facility] Work Phone: 07-04-2024 Cognitive function Voice/Name [facility] Work Phone: 07-03-2024 Cognitive function Voice/Name [facility] Work Phone: 05-23-2024 Mental Status Orientation Oriented x 4 [facility] 04-29-2024 Cognitive function Voice/Name [facility] Work Phone: 06-16-2023 Cognitive function Voice/Name [facility] Work Phone: 06-12-2023 Cognitive function Level Of Cons ciousness Awake;Alert;Appropriate [facility] Work Phone: 05-07-2023 Cognitive function Voice/Name [facility] Work Phone: 09-02-2023 Cognitive function Voice/Name [facility] Work Phone: 02-02-2023 Cognitive function Level Of Cons ciousness Awake;Alert;Appropriate [facility] Work Phone: 01-03-2023 Cognitive function Appropriate;Cooperativ e [facility] Work Phone: 01-01-2023 Cognitive function Level Of Cons ciousness Awake;Alert;Appropriate;Follow s Commands [facility] Work Phone: 09-02-2022 Cognitive function Voice/Name [facility] Work Phone: 04-17-2022 Cognitive function Level Of Cons ciousness Awake;Alert;Appropriate [facility] Work Phone: 03-27-2022 Cognitive function Level Of Cons ciousness Awake;Alert;Appropriate [facility] Work Phone: Clinical Notes 06-08-2022 to 12-12-2024 Note Date & Type Note Facility 12-12-2024 Radiology Diagnostic study note [facility] 12-12-2024 Radiology Diagnostic study note [facility] 09-21-2024 Hospital Discharg e instructions Additional Instructions Follow-up with GI. Stay well-hydrated. Return for any other concerns. Can also follow-up with your PCP in the next 5 to 7 days. [facility] Work Phone: 09-16-2024 Consult note Note Date/Time September 16, 2024 2:16pm [facility] Medical Records Department [address] [place] [address] Counseling Note - Pharmacy 09/16/24 1415 MR#: [id number] Acct: [id number] Name: TRENTON JACKSON Rep #:[id number] : 1970 54 From: Josse Garcia PCP: RUTH Lawrence, SERVICE DESK DIRECTOR-C Statu s:ADM IN Y Location: [place] [address] Pharmacy [facility] Service has performed discharge medication reconciliation and counseling for this patient. The patient's discharge medication list was reviewed for discrepancies and discrepancies were resolved. The patient was counseled on the following discharge medications and changes in medications for homegoing were reviewed. The Reason for Use, instructions for use, and potential side effects were reviewed for all new medications. The patient's questions regarding all of their medications were answered. 1. Acetaminophen 650 mg PO Q4H PRIN pain 2. Ertapenem 1 gram Q24H x 7 days 3. Lidocaine 5% patch daily 4. Ondansetron 4 mg PO Q6H PRN nausea/vomiting 5. Senna/docusate 2 tablets PO BID The patient was able to verbally demonstrate an understanding of their dischargemedications. The patient was counselled on new medications by pharmacy customer care specialist Balta. Medications at Discharge Home Medications aspirin 81 mg capsule 81 mg PO DAILY heart health 08/10/22 clopidogrel 75 mg tablet 75 mg PO DAILY anti platelet #30 tabs 02/03/23 pantoprazole 40 mg tablet,delayed release 40 mg PO DAILY reflux 04/18/23 sacubitril 24 mg-valsartan 26 mg tablet (Entresto) 1 tab PO BID . 30 days #60 tabs 05/07/23 atorvastatin 80 mg tablet 80 mg PO QHS cholesterol 12/29/23 gabapentin 300 mg capsule 300 mg PO TID nerve pain 12/29/23 insulin lispro 100 unit/mL subcutaneous half-unit pen 1 sliding scale dose subcut TIDCM glucose 12/29/23 DIC 2%/RINKU 6%/LIDOC 2% IN saltsable 1 - 2 pump subdermal Q6H PRN FOR FEET 02/14/24 cholecalciferol (vitamin D3) 1,250 mcg (50,000 unit) tablet 1,250 mcg PO WE supplement 02/14/24 spironolactone 25 mg tablet 25 mg PO DAILY water pill 30 days #0 tabs 02/17/24 carvedilol 3.125 mg tablet 6.25 mg (2 x 3.125 mg) PO BID blood pressure 30 days #0 tabs 02/19/24 ergocalciferol (vitamin D2) 1,250 mcg (50,000 unit) capsule (Vitamin D2) 1,250 mcg PO We@1000 #0 caps 02/19/24 insulin glargine 100 unit/mL (3 mL) subcutaneous pen (Lantus Solostar U-100 Insulin) 20 unit (0.2 mL) subcut QPM 30 days #0 mL 02/19/24 escitalopram oxalate 20 mg tablet 20 mg PO DAILY depression 06/29/24 furosemide 20 mg tablet 20 mg PO DAILY water pill 06/29/24 midodrine 2.5 mg tablet 2.5 mg PO DAILY blood pressure 06/29/24 polyethylene glycol 3350 17 gram/dose oral powder (Miralax) 17 g PO BID PRN constipation 06/29/24 sennosides 8.6 mg-docusate sodium 50 mg tablet (Stimulant Laxative Plus) 2 tab PO BID PRN constipation 06/29/24 tizanidine 4 mg tablet 4 mg PO 3XD spasm 06/29/24 acetaminophen 500 mg tablet 1,000 mg (2 x 500 mg) PO Q8 #0 tabs 09/02/24 ondansetron 4 mg disintegrating tablet 4 mg PO Q8H PRN PRN Nausea #10 tabs 09/05/24 acetaminophen 325 mg tablet 650 mg (2 x 325 mg) PO Q4H PRN PRN Fever, pain 1-03/13 #0 tabs 09/16/24 ertapenem 1 gram solution for injection 1 g IV Q24H 7 days #7 ea 09/16/24 lidocaine 5 % topical patch 1 patch topical DAILY #30 ea 09/16/24 ondansetron 4 mg disintegrating tablet 4 mg PO Q6H PRN nausea and vomiting #30 tabs 09/16/24 oxycodone 5 mg tablet 5 mg PO Q4H PRN PRN pain 4-10 3 days #14 tabs 09/16/24 sennosides 8.6 mg-docusate sodium 50 mg tablet (Stimulant Laxative Plus) 2 tab PO BID #60 tabs 09/16/24 09/16/24 1416 <Electronically signed by Josse osborne> Date _ Josse Angel Signature (if applicable): Date CC: ~ Signed [facility] Work Phone: [phone] 677-750204-15-2025 Discharge summary Author Latricia Aaron [facility] Note Date/Time September 16, 2024 12: 41pm [facility] Medical Records Department [address] [place] [address] Discharge Summary 09/16/24 1201 MR#: [id number] Acct: [id number] Name: TRENTON JACKSON Rep #:[id number] : 1970 54 From: Latricia Aaron MD PCP: RUTH Lawrence, GLENN Statu s:ADM IN Location: [place] [address] Providers Date of Admission: 09/09/24 Date of Discharge: 09/16/24 Primary Care Physician: RUTH Lawrence, SERVICE DESK DIRECTORRamilaC Consultations 09/11/24 12:37 Consult: Infectious Disease Routine Consulting Provider: Nichelle Mcneil Reason for Consult: emphysematous cystitis, hx ESBL EMERGENT Consult: No MD Notified: Yes Date Notified: 09/11/24 Time Notified: 12:37 Method of Notification: Verbal 09/14/24 16:30 Consult: Urology Routine Consulting Provider: Amish Tariq Reason for Consult: AM c/s: Emphysem cystitis, rec ESBL UTIs, cont pain, ID rec'd uro consul EMERGENT Consult: No Notified: Yes Date Notified: 09/15/24 Time Notified: 08:53 Method of Notification: Answering Service Reason For Visit: INTRACTABLE N/V, HYPOKALEMIA Diagnosis Discharge Diagnosis (1) Intractable nausea and vomiting: Status: Acute Code(s): R11.2 - Nausea with vomiting, unspecified Plan Patient is a 54-year-old lady who was admitted with nausea vomiting as well as back pain for [address] of the abdomen on admission demonstrated questionable emphysematous cystitis. Admitted to a monitored bed for subsequentmanagement. 1. 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 Patient managed with broad-spectrum antibiotic therapy with meropenem given her history of ESBL. Consult was placed to ID recommendation was made to obtainurology consultation which has since been placed awaiting input ?Repeat cultures grew nonsignificant colony count of yeast not Ashley albicans. Case discussed with Dr. Mcneil with infectious disease plan is for patient to be discharged home with IV ertapenem for 7 days 2. Chronic congestive heart failure with reduced ejection fraction ? 2D echo obtained did showThe left ventricular ejection fraction is 30 %. Normal LV size. There are regional wall motion abnormalities as specified. Compared to previous study, the left ventricular systolic function has improved.. Patient is on diuretic therapy continue 3. Peripheral arterial disease -Previous stent about 1 year ago CTA with runoff shows severe disease. Dopplerswere unremarkable. Consult placed to vascular surgery opinion was that patient pain was more related to peripheral arterial disease. Patient is on recommendedmedications including dual antiplatelet therapy as well as statin therapy. Planis for patient to follow-up as outpatient 4. GERD/possible esophagitis ? Patient is on PPI plan is for patient to follow-up with GI as outpatient for EGD and colonoscopy 5. Diabetes mellitus type II -patient's oral hypoglycemics held. Placed on long acting insulin, Accu-Cheks a.c. and at bedtime and covered with sliding scale insulin. 6.Coronary artery disease ? Previous evaluation by cardiology on 06/02/2023. Optimization of medical therapy recommended 7. Chronic hypotension ? Patient is on midodrine 8. Dyslipidemia ?Patient is on statin therapy, continued at home dose 9. Tobacco dependence ? Counseled on cessation, offered nicotine patch for tobacco cravings 10. Chronic back pain ? Secondary to chronic compression fractures plan is to continue with PT OT as tolerated 11. DVT prophylaxis enoxaparin 40 daily Time spent in the patient's overall evaluation,decision-making process, review of diagnostic data, adjustment of management, discussion with other providers, nursing nursing and ancillary staff involved in patient's care documentation, 38minutes Medications at Discharge Home Medications aspirin 81 mg capsule 81 mg PO DAILY heart health 08/10/22 clopidogrel 75 mg tablet 75 mg PO DAILY anti platelet #30 tabs 02/03/23 pantoprazole 40 mg tablet,delayed release 40 mg PO DAILY reflux 04/18/23 sacubitril 24 mg-valsartan 26 mg tablet (Entresto) 1 tab PO BID . 30 days #60 tabs 05/07/23 atorvastatin 80 mg tablet 80 mg PO QHS cholesterol 12/29/23 gabapentin 300 mg capsule 300 mg PO TID nerve pain 12/29/23 insulin lispro 100 unit/mL subcutaneous half-unit pen 1 sliding scale dose subcut TIDCM glucose 12/29/23 DIC 2%/RINKU 6%/LIDOC 2% IN saltsable 1 - 2 pump subdermal Q6H PRN FOR FEET 02/14/24 cholecalciferol (vitamin D3) 1,250 mcg (50,000 unit) tablet 1,250 mcg PO WE supplement 02/14/24 spironolactone 25 mg tablet 25 mg PO DAILY water pill 30 days #0 tabs 02/17/24 carvedilol 3.125 mg tablet 6.25 mg (2 x 3.125 mg) PO BID blood pressure 30 days #0 tabs 02/19/24 ergocalciferol (vitamin D2) 1,250 mcg (50,000 unit) capsule (Vitamin D2) 1,250 mcg PO We@1000 #0 caps 02/19/24 insulin glargine 100 unit/mL (3 mL) subcutaneous pen (Lantus Solostar U-100 Insulin) 20 unit (0.2 mL) subcut QPM 30 days #0 mL 02/19/24 escitalopram oxalate 20 mg tablet 20 mg PO DAILY depression 06/29/24 furosemide 20 mg tablet 20 mg PO DAILY water pill 06/29/24 midodrine 2.5 mg tablet 2.5 mg PO DAILY blood pressure 06/29/24 polyethylene glycol 3350 17 gram/dose oral powder (Miralax) 17 g PO BID PRN constipation 06/29/24 sennosides 8.6 mg-docusate sodium 50 mg tablet (Stimulant Laxative Plus) 2 tab PO BID PRN constipation 06/29/24 tizanidine 4 mg tablet 4 mg PO 3XD spasm 06/29/24 acetaminophen 500 mg tablet 1,000 mg (2 x 500 mg) PO Q8 #0 tabs 09/02/24 ondansetron 4 mg disintegrating tablet 4 mg PO Q8H PRN PRN Nausea #10 tabs 09/05/24 acetaminophen 325 mg tablet 650 mg (2 x 325 mg) PO Q4H PRN PRN Fever, pain 1- 03/13 #0 tabs 09/16/24 ertapenem 1 gram solution for injection 1 g IV Q24H 7 days #7 ea 09/16/24 lidocaine 5 % topical patch 1 patch topical DAILY #30 ea 09/16/24 ondansetron 4 mg disintegrating tablet 4 mg PO Q6H PRN nausea and vomiting #30 tabs 09/16/24 oxycodone 5 mg tablet 5 mg PO Q4H PRN PRN pain 4-10 3 days #14 tabs 09/16/24 sennosides 8.6 mg-docusate sodium 50 mg tablet (Stimulant Laxative Plus) 2 tab PO BID #60 tabs 09/16/24 Physical Exam Narrative GENERAL: cooperative HEENT: Atraumatic; normocephalic EYES; Anicteric, Normal Conjunctiva NECK; supple, normal thyroid, RESPIRATORY: Diminished to auscultation CARDIOVASCULAR: Regular S1 S2, GI: soft, normoactive bowel sounds, : No Renal angle tenderness; EXTREMITIES: No edema, no clubbing, MUSCULOSKELETAL: no muscle wasting NEURO: Awake; no lateralizing signs. SKIN: No Rash PSYCH; Flat affect Weight / BMI Weight Weight: 83.1 kg Body Mass Index (BMI) 28.7 ABG / Lab / Microbiology Data 09/16/24 09:59 09/16/24 09:19 Laboratory: Laboratory Results - last 24 hr 09/15/24 11:52: POC Glucose 234 H 09/15/24 16:18: POC Glucose 218 H 09/15/24 21:40: POC Glucose 278 H 09/16/24 06:32: POC Glucose 215 H 09/16/24 09:19: WBC Cancelled, Corrected WBC Cancelled, RBC Cancelled, Hgb Cancelled, Hct Cancelled, MCV Cancelled, MCH Cancelled, MCHC Cancelled, RDW Std Deviation Cancelled, RDW Coeff of Spencer Cancelled, Plt Count Cancelled, MPV Cancelled, Immature Gran % (Auto) Cancelled, Neut % (Auto) Cancelled, Lymph % (Auto) Cancelled, Erie % (Auto) Cancelled, Eos % (Auto) Cancelled, Baso % (Auto)Cancelled, Absolute Neuts (auto) Cancelled, Absolute Lymphs (auto) Cancelled, Total Counted Cancelled, Neutrophils % (Manual) Cancelled, Band Neutrophils % Cancelled, Lymphocytes % (Manual) Cancelled, Monocytes % (Manual) Cancelled, Eosinophils % (Manual) Cancelled, Basophils % (Manual) Cancelled, Metamyelocytes% Cancelled, Myelocytes % Cancelled, Promyelocytes % Cancelled, Blast Cells % Cancelled, Plasma Cell % (Manual) Cancelled, Other Cells % Cancelled, Nucleated RBC % Cancelled, Nucleated RBCs/100 WBC Cancelled, Differential Comment Cancelled, Diff Path Review Cancelled, Hypersegmented Neuts Cancelled, Atypical Lymphocytes Cancelled, Reactive Lymphocytes Cancelled, Smudge Cells Cancelled, Toxic Granulation Cancelled, Toxic Vacuolation Cancelled, Dohle Bodies Cancelled, Truman Rods Cancelled, Platelet Estimate Cancelled, Plt Morphology Comment Cancelled, RBC Morphology Cancelled 09/16/24 09:19: RBC Morphology Cancelled, Polychromasia Cancelled, HypochromasiaCancelled, Basophilic Stippling Cancelled, Anisocytosis Cancelled, Microcytosis Cancelled, Macrocytosis Cancelled, Spherocytes Cancelled, Sickle Cells Cancelled, Target Cells Cancelled, Tear Drop Cells Cancelled, Ovalocytes Cancelled, Stomatocytes Cancelled, Burris-[place] Bodies Cancelled, Lore Cells Cancelled, Bite Cells Cancelled, Crenated Cell Cancelled, Acanthocytes (Spur) Cancelled, Rouleaux Cancelled, Schistocytes Cancelled, Sodium 138, Potassium 4.1, Chloride 101, Carbon Dioxide 27.0, Anion Gap 10, BUN 17, Creatinine 0.69 L,Estim Creat Clear Calc 104.49, Est GFR (MDRD) Non-Af 104, BUN/Creatinine Ratio 24.8 H, Glucose 195 H, Calcium 9.3 09/16/24 09:59: WBC 13.2 H, RBC 4.09 L, Hgb 11.4 L, Hct 35.1 L, MCV 85.8, MCH 27.9, MCHC 32.5, RDW Std Deviation 43.5, RDW Coeff of Spencer 13.8, Plt Count 229, MPV 9.9, Immature Gran % (Auto) 0.500, Neut % (Auto) 79.4 H, Lymph % (Auto) 13.0L, Erie % (Auto) 6.2, Eos % (Auto) 0.5, Baso % (Auto) 0.4, Absolute Neuts (auto)10.5 H, Absolute Lymphs (auto) 1.72, Nucleated RBC % 0 09/16/24 11:22: POC Glucose 204 H Microbiology: Microbiology 09/12/24 16:50 Urine, Clean Catch Urine Culture - Final Yeast, not Ashley albicans 09/08/24 21:30 Blood Culture (Wb) - Left Hand Blood Culture - Final No growth in 5 days. 09/08/24 21:25 Blood Culture (Wb) - Right Hand Blood Culture - Final No growth in 5 days. 09/09/24 02:20 Urine, Clean Catch Urine Culture - Final Presumptive E. coli 09/08/24 12:44 Stool Enteric Bacteriology - Final 09/08/24 12:44 Stool Clostridioides difficile (PCR) - Final D/C Instructions Discharge Diet: 1800 Calorie Control Diet Discharge Activity: Return to Normal Activity Call your doctor if you observe: Fever of 101 or Higher, Shortness of breath, Fainting spells and Chest pain DC O2, CPAP, BIPAP Needs Home O2 Discharge instructions: No Meaningful Use Info Meaningful Use Meaningful Use Diagnoses (Choose all that apply): None applicable Ischemic Stroke Statin Dosing Therapy Reference: STATIN DOSE THERAPY REFERENCE: * Patients > 75 years receive moderate or high dose statin therapy. * Patients 75 years or YOUNGER should receive HIGH intensity statin dose unless contraindicated. You will be required to document reason for non-treatment if statin daily dose does not meet guidelines. HIGH DOSE STATIN THERAPY DAILY Atorvastatin > than or = to 40 mg Rosuvastatin > than or = to 20 mg Amlodipine + Atorvastatin > than or = to 2.5/40 mg Ezetimibe + Simvastatin 10/80 mg Simvastatin 80mg Discharge Plan Admission Admit Date/Time: 09/09/24 19:01 Attending Provider: Latricia Aaron Primary Care Provider: Zohreh Mckeon [facility] Consulting Providers: Rosaura Crane; Nichelle Mcneil; Brenda Posadas; Amish Tariq Discharge Orders/Prescriptions Prescriptions: New ertapenem 1 gram recon soln 1 g IV Q24H 7 Days Qty: 7 0RF Rx Instructions: Dx: emphysematous cystitis. Weekly bmp, LFT, and cbc while on iv abx. Fax to [phone]. acetaminophen 325 mg Tablet 650 mg PO Q4H PRN PRN (Reason: Fever, pain 1-10/10) Qty: 0 0RF oxycodone 5 mg Tablet 5 mg PO Q4H PRN PRN (Reason: pain 4-10) 3 Days Qty: 14 0RF sennosides-docusate sodium [Stimulant Laxative Plus] 8.6-50 mg Tablet 2 tab PO BID Qty: 60 0RF lidocaine 5 % Adhesive Patch,Medicated 1 patch topical DAILY Qty: 30 0RF Protocol: *Topical Application Instructions APPLICATION INSTRUCTIONS: to lower back ondansetron 4 mg tablet,disintegrating 4 mg PO Q6H PRN (Reason: nausea and vomiting) Qty: 30 0RF Continued pantoprazole 40 mg tablet,delayed release (DR/EC) 40 mg PO DAILY aspirin 81 mg Capsule 81 mg PO DAILY clopidogrel 75 mg Tablet 75 mg PO DAILY Qty: 30 0RF Patient Comments: patient stated pretty sure I still take that sacubitril-valsartan [Entresto] 24-26 mg Tablet 1 tab PO BID 30 Days Qty: 60 0RF insulin lispro 100 unit/mL insulin pen, half-unit 1 sliding scale dose subcut TIDCM Patient Comments: patient does not know sliding scale atorvastatin 80 mg tablet 80 mg PO QHS gabapentin 300 mg Capsule 300 mg PO TID tizanidine 4 mg tablet 4 mg PO 3XD midodrine 2.5 mg tablet 2.5 mg PO DAILY furosemide 20 mg tablet 20 mg PO DAILY escitalopram oxalate 20 mg tablet 20 mg PO DAILY sennosides-docusate sodium [Stimulant Laxative Plus] 8.6-50 mg Tablet 2 tab PO BID PRN (Reason: constipation) polyethylene glycol 3350 [Miralax] 17 gram/dose powder 17 g PO BID PRN (Reason: constipation) acetaminophen 500 mg Tablet 1,000 mg PO Q8 Qty: 0 0RF cholecalciferol (vitamin D3) 1,250 mcg (50,000 unit) tablet 1,250 mcg PO WE DIC 2%/RINKU 6%/LIDOC 2% IN saltsable cream 1 - 2 pump subdermal Q6H PRN (Reason: FOR FEET) spironolactone 25 mg tablet 25 mg PO DAILY 30 Days Qty: 0 0RF ergocalciferol (vitamin D2) [Vitamin D2] 1,250 mcg (50,000 unit) Capsule 1,250 mcg PO We@1000 Qty: 0 0RF carvedilol 3.125 mg tablet 6.25 mg PO BID 30 Days Qty: 0 0RF Rx Instructions: Hold for heart less than 50 or systolic blood pressure less than 100 mmHg. insulin glargine [Lantus Solostar U-100 Insulin] 100 unit/mL (3 mL) insulin pen 20 unit subcut QPM 30 Days Qty: 0 0RF Rx Instructions: Hold if glucose less than 130 mg/dl ondansetron 4 mg tablet,disintegrating 4 mg PO Q8H PRN PRN (Reason: Nausea) Qty: 10 0RF Referrals / Follow Up: Zohreh Mckeon, SERVICE DESK DIRECTOR-C [Primary Care Provider] - Within 1 Week Disposition Disposition (needs filled in before D/C Order can be placed): Home, Self Care Charges/Coding Visit Charges Inpatient E&M: 44972 Disch Hosp >30min 09/16/24 1241 <Electronically signed by Latricia Aaron MD> Cosigner Signature (if applicable): CC: RUTH SERVICE DESK DIRECTOR-C Zohreh Mckeon; Dr. Latricia Aaron MD~ Signed [facility] Work Phone: 1(553) 388-870104-15-2025 Progress note Author Latricia Aaron [facility] Note Date/Time September 16, 2024 12: 01pm [facility] Medical Records Department [address] [place] [address] Progress Note - Hospitalist 09/16/24812 MR#: [id number] Acct: [id number] Name: TRENTON JACKSON Rep #:[id number] : 1970 54 From: Latricia Aaron MD PCP: RUTH Lawrence, SERVICE DESK DIRECTOR-C Statu s:ADM IN Location: [place] [address] Reason for Visit Reason for Visit: Diagnoses Other cystitis without hematuria (09/09/24) Nausea with vomiting, unspecified (09/09/24) Subjective Subjective Case discussed with Dr. Mcneil with ID patient to be discharged home on IV antibiotics Objective Data Objective Data Vital Signs: Vital Signs Temp Pulse Resp BP Pulse Ox O2 Del Method 98.2 F 92 16 145/74 H 98 Room Air 09/16/24 03:50 09/16/24 03:50 09/16/24 03:50 09/16/24 03:50 09/16/24 03:50 09/16/24 03:50 Oxygen Delivery Method Room Air Weight: 83.1 kg Body Mass Index (BMI) 28.7 Intake & Output: Intake and Output for Last 24 Hours 09/14/24 09/15/24 09/16/24 23:59 23:59 23:59 Intake Total 1440 / 1440 600 / 600 770 / 770 Output Total 700 / 700 0 / 0 Balance 740 / 740 600 / 600 770 / 770 Lab / Micro Data 09/16/24 09:59 09/16/24 09:19 Labs: Laboratory Results - last 24 hr 09/15/24 11:52: POC Glucose 234 H 09/15/24 16:18: POC Glucose 218 H 09/15/24 21:40: POC Glucose 278 H 09/16/24 06:32: POC Glucose 215 H Micro: Microbiology 09/12/24 16:50 Urine, Clean Catch Urine Culture - Final Yeast, not Ashley albicans 09/08/24 21:30 Blood Culture (Wb) - Left Hand Blood Culture - Final No growth in 5 days. 09/08/24 21:25 Blood Culture (Wb) - Right Hand Blood Culture - Final No growth in 5 days. 09/09/24 02:20 Urine, Clean Catch Urine Culture - Final Presumptive E. coli 09/08/24 12:44 Stool Enteric Bacteriology - Final 09/08/24 12:44 Stool Clostridioides difficile (PCR) - Final Physical Exam Narrative GENERAL: cooperative HEENT: Atraumatic; normocephalic EYES; Anicteric, Normal Conjunctiva NECK; supple, normal thyroid, RESPIRATORY: Diminished to auscultation CARDIOVASCULAR: Regular S1 S2, GI: soft, normoactive bowel sounds, : No Renal angle tenderness; EXTREMITIES: No edema, no clubbing, MUSCULOSKELETAL: no muscle wasting NEURO: Awake; no lateralizing signs. SKIN: No Rash PSYCH; Flat affect Assessment & Plan Assessment/Plan (1) Intractable nausea and vomiting: PLAN: Plan Patient is a 54-year-old lady who was admitted with nausea vomiting as well as back pain for [address] of the abdomen on admission demonstrated questionable emphysematous cystitis. Admitted to a monitored bed for subsequentmanagement. 1. 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 Patient managed with broad-spectrum antibiotic therapy with meropenem given her history of ESBL. Consult was placed to ID recommendation was made to obtainurology consultation which has since been placed awaiting input ?Repeat cultures grew nonsignificant colony count of yeast not Ashley albicans. Case discussed with Dr. Mcneil with infectious disease plan is for patient to be discharged home with IV ertapenem for 7 days 2. Chronic congestive heart failure with reduced ejection fraction ? 2D echo obtained did showThe left ventricular ejection fraction is 30 %. Normal LV size. There are regional wall motion abnormalities as specified. Compared to previous study, the left ventricular systolic function has improved.. Patient is on diuretic therapy continue 3. Peripheral arterial disease -Previous stent about 1 year ago CTA with runoff shows severe disease. Dopplerswere unremarkable. Consult placed to vascular surgery opinion was that patient pain was more related to peripheral arterial disease. Patient is on recommendedmedications including dual antiplatelet therapy as well as statin therapy. Planis for patient to follow-up as outpatient 4. GERD/possible esophagitis ? Patient is on PPI plan is for patient to follow-up with GI as outpatient for EGD and colonoscopy 5. Diabetes mellitus type II -patient's oral hypoglycemics held. Placed on long acting insulin, Accu-Cheks a.c. and at bedtime and covered with sliding scale insulin. 6.Coronary artery disease ? Previous evaluation by cardiology on 06/02/2023. Optimization of medical therapy recommended 7. Chronic hypotension ? Patient is on midodrine 8. Dyslipidemia ?Patient is on statin therapy, continued at home dose 9. Tobacco dependence ? Counseled on cessation, offered nicotine patch for tobacco cravings 10. Chronic back pain ? Secondary to chronic compression fractures plan is to continue with PT OT as tolerated 11. DVT prophylaxis enoxaparin 40 daily Time spent in the patient's overall evaluation,decision-making process, review of diagnostic data, adjustment of management, discussion with other providers, nursing nursing and ancillary staff involved in patient's care documentation, 38minutes 09/16/24 1201 <Electronically signed by Latricia Aaron MD> Nicoletteigner Signature (if applicable): CC: ~ Signed [facility] Work Phone: 1(668) 630-644704-15-2025 Progress note Author Nichelle Mcneil [facility] Note Date/Time September 16, 2024 10: 18am [facility] Medical Records Department [address] [place] [address] Progress Note - Infect Disease 09/16/24 1017 MR#: [id number] Acct: [id number] Name: TRENTON JACKSON Rep #:[id number] : 1970 54 From: Nichelle osborne MD PCP: RUTH Lawrence, GLENN Statu s:ADM IN Location: [place] [address] Physical Exam Narrative Not feeling well, ongoing abd pain, c/o n/v this AM. Const alert Constitutional Narrative: not feeling well Resp normal air movement and clear to auscultation bilaterally Cardio regular rate and regular rhythm GI soft to palpation and non-distended GI Narrative: RLQ soreness Skin no rashes or lesions noted ID ID: Route of nutrition/ use of supplements: [] Nutritional Intake: [] IV Site: [] Douglas Catheter: [] Assessment & Plan Assessment/Plan (1) Emphysematous cystitis: PLAN: H/o esbl uti. On ena. Seen by urology. When she is ready, plan is for midline and iv ertapenem once daily as outpt for 7 more days with weekly labs. Wrote rx, d/w Dr. Aaron. Will follow (2) Intractable nausea and vomitin09/16/24 1018 <Electronically signed by Nichelle Mcneil MD> Cosigner Signature (if applicable): CC: ~ Signed [facility] Work Phone: 1(903) 478-846204-15-2025 [facility]04-14-2025 Progress note [facility] Date/Time September 15, 2024 2:2 7pm [facility] Medical Records Department [address] [place] [address] Progress Note - Infect Disease 09/15/24 1426 MR#: [id number] Acct: [id number] Name: TRENTON JACKSON Rep #:[id number] : 1970 54 From: Nichelle osborne MD PCP: RUTH Lawrence, GLENN Statu s:ADM IN Location: [place] [address] Physical Exam Narrative Ongoing bladder pain, concerned her IV infiltrated and she was not getting abx doses. No fever, no dysuria. Const alert and no apparent distress General Appearance: cooperative Resp normal air movement and clear to auscultation bilaterally Cardio regular rate and regular rhythm GI soft to palpation, non-tender and non-distended Skin no rashes or lesions noted ID ID: Route of nutrition/ use of supplements: [] Nutritional Intake: [] IV Site: [] Douglas Catheter: [] Assessment & Plan Assessment/Plan (1) Emphysematous cystitis: PLAN: H/o esbl uti. Cont ena. Seen by urology. Tentative plan is for midline and iv ertapenem once daily as outpt. Will follow (2) Intractable nausea and vomitin09/15/24 1427 <Electronically signed by Nichelle Mcneil MD> Cosigner Signature (if applicable): CC: ~ Signed [facility] Work Phone: 1(352) 146-217404-14-2025 Progress note Author Latricia Aaron [facility] Note Date/Time September 15, 2024 11: 29am [facility] Medical Records Department [address] [facility] [place] [address] Progress Note - Hospitalist 09/15/24 0722 MR#: [id number] Acct: [id number] Name: TRENTON JACKSON Rep #:[id number] : 1970 54 From: Latricia Aaron MD PCP: RUTH Lawrence, SERVICE DESK DIRECTOR-C Statu s:ADM IN Location: [place] [address] Reason for Visit Reason for Visit: Diagnoses Other cystitis without hematuria (09/09/24) Nausea with vomiting, unspecified (09/09/24) Subjective Subjective Patient is a 54-year-old lady who was admitted with nausea vomiting as well as back pain for [address] of the abdomen on admission demonstrated questionable emphysematous cystitis. Admitted to a monitored bed for subsequentmanagement. Objective Data Objective Data Vital Signs: Vital Signs Temp Pulse Resp BP Pulse Ox O2 Del Method 98.0 F 78 18 122/69 H 98 Room Air 09/15/24 04:41 09/15/24 04:41 09/15/24 04:41 09/15/24 04:41 09/15/24 04:41 09/15/24 04:41 Oxygen Delivery Method Room Air Weight: 86.5 kg Body Mass Index (BMI) 29.8 Intake & Output: Intake and Output for Last 24 Hours 09/13/24 09/14/24 09/15/24 23:59 23:59 23:59 Intake Total 720 / 720 1440 / 1440 120 / 120 Output Total 1000 / 1000 700 / 700 Balance -280 / -280 740 / 740 120 / 120 Lab / Micro Data 09/15/24 04:08 09/15/24 04:08 Labs: Laboratory Results - last 24 hr 09/14/24 11:36: POC Glucose 288 H 09/14/24 18:20: POC Glucose 248 H 09/14/24 21:03: POC Glucose 188 H 09/15/24 04:08: WBC 9.0, RBC 3.74 L, Hgb 10.3 L, Hct 32.2 L, MCV 86.1, MCH 27.5,MCHC 32.0, RDW Std Deviation 43.8, RDW Coeff of Spencer 14.0, Plt Count 211, MPV 10.0, Immature Gran % (Auto) 0.400, Neut % (Auto) 74.8 H, Lymph % (Auto) 14.8 L,Erie % (Auto) 8.1, Eos % (Auto) 1.2, Baso % (Auto) 0.7, Absolute Neuts (auto) 6.8, Absolute Lymphs (auto) 1.34, Nucleated RBC % 0, Sodium 136, Potassium 3.9, Chloride 100, Carbon Dioxide 27.6, Anion Gap 8, BUN 15, Creatinine 0.79, Estim Creat Clear Calc 93.04, Est GFR (MDRD) Non-Af 89, BUN/Creatinine Ratio 19.5, Glucose 172 H, Calcium 9.1 09/15/24 06:33: POC Glucose 188 H Micro: Microbiology 09/12/24 16:50 Urine, Clean Catch Urine Culture - Preliminary Culture exhibits no growth. 09/08/24 21:30 Blood Culture (Wb) - Left Hand Blood Culture - Final No growth in 5 days. 09/08/24 21:25 Blood Culture (Wb) - Right Hand Blood Culture - Final No growth in 5 days. 09/09/24 02:20 Urine, Clean Catch Urine Culture - Final Presumptive E. coli 09/08/24 12:44 Stool Enteric Bacteriology - Final 09/08/24 12:44 Stool Clostridioides difficile (PCR) - Final Physical Exam Narrative GENERAL: cooperative HEENT: Atraumatic; normocephalic EYES; Anicteric, Normal Conjunctiva NECK; supple, normal thyroid, RESPIRATORY: Diminished to auscultation CARDIOVASCULAR: Regular S1 S2, GI: soft, normoactive bowel sounds, : No Renal angle tenderness; EXTREMITIES: No edema, no clubbing, MUSCULOSKELETAL: no muscle wasting NEURO: Awake; no lateralizing signs. SKIN: No Rash PSYCH; Flat affect Assessment & Plan Assessment/Plan (1) Intractable nausea and vomiting: PLAN: Plan Patient is a 54-year-old lady who was admitted with nausea vomiting as well as back pain for [address] of the abdomen on admission demonstrated questionable emphysematous cystitis. Admitted to a monitored bed for subsequentmanagement. 1. 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 Patient managed with broad-spectrum antibiotic therapy with meropenem given her history of ESBL. Consult was placed to ID recommendation was made to obtainurology consultation which has since been placed awaiting input 2. Chronic congestive heart failure with reduced ejection fraction ? 2D echo obtained did showThe left ventricular ejection fraction is 30 %. Normal LV size. There are regional wall motion abnormalities as specified. Compared to previous study, the left ventricular systolic function has improved.. Patient is on diuretic therapy continue 3. Peripheral arterial disease -Previous stent about 1 year ago CTA with runoff shows severe disease. Dopplerswere unremarkable. Consult placed to vascular surgery opinion was that patient pain was more related to peripheral arterial disease. Patient is on recommendedmedications including dual antiplatelet therapy as well as statin therapy. Planis for patient to follow-up as outpatient 4. GERD/possible esophagitis ? Patient is on PPI plan is for patient to follow-up with GI as outpatient for EGD and colonoscopy 5. Diabetes mellitus type II -patient's oral hypoglycemics held. Placed on long acting insulin, Accu-Cheks a.c. and at bedtime and covered with sliding scale insulin. 6.Coronary artery disease ? Previous evaluation by cardiology on 06/02/2023. Optimization of medical therapy recommended 7. Chronic hypotension ? Patient is on midodrine 8. Dyslipidemia ?Patient is on statin therapy, continued at home dose 9. Tobacco dependence ? Counseled on cessation, offered nicotine patch for tobacco cravings 10. Chronic back pain ? Secondary to chronic compression fractures plan is to continue with PT OT as tolerated 11. DVT prophylaxis enoxaparin 40 daily Time spent in the patient's overall evaluation,decision-making process, review of diagnostic data, adjustment of management, discussion with other providers, nursing nursing and ancillary staff involved in patient's care documentation, 38minutes Charges/Coding Visit Charges Inpatient E&M: 57240 Subs Hosp L2 09/15/24 1129 <Electronically signed by Latricia Aaron MD> Cosigner Signature (if applicable): CC: ~ Signed [facility] Work Phone: 1(485) 598-624904-14-2025 Consult note Author Amish Tariq [facility] Note Date/Time September 15, 2024 11: 13am [facility] Medical Records Department [address] [place] [address] Consultation - Urology 09/15/24 1112 MR#: [id number] Acct: [id number] Name: TRENTON JACKSON Rep #:[id number] : 1970 54 From: Amish Tariq MD PCP: RUTH Lawrence, SERVICE DESK DIRECTOR-C Statu s:ADM IN Location: [place] [address] HPI Consult Data Date of Consult: 09/15/24 HPI Narrative Reason for Consultation: Emphysematous cystitis HPI Narrative: TRENTON JACKSON, is a 54 F who presents With emphysematous cystitis, CT scan was done recently the demonstrated some air in the anterior part of the bladder.I'll see any clear signs of a fistula. She does have positive cultures of E. coli. Need to be treated the public course of IV antibiotics. I'll see any immediate intervention necessary from urology. Call w questions. [facility] Medical History L5 vertebral fracture ESBL (extended spectrum beta-lactamase) producing bacteria infection Generalized weakness Candidiasis of breast Colitis Debility PTSD (post-traumatic stress disorder) Closed compression fracture of L3 vertebra Hypokalemia Colitis BiPAP (biphasic positive airway pressure) dependence Coronary artery disease On home oxygen therapy Rheumatoid arthritis Sleep apnea Smoker DVT (deep venous thrombosis) Seizures Amputation toe Psychiatric disorder Ischemic cardiomyopathy Diabetes type 2, uncontrolled Essential hypertension Substance abuse Alcohol abuse Depression Osteoporosis GERD (gastroesophageal reflux disease) Pulmonary embolism Myocardial infarct Pericardial effusion Hypoxemia Acute dyspnea Aftercare following surgery of the circulatory system Hx of fracture of humerus Toe amputee Hyperlipidemia CHF (congestive heart failure) CAD (coronary artery disease), rincon coronary artery Home Medications ?Medication ?Instructions ?Recorded ?Last Taken ?Type aspirin 81 mg capsule 81 mg PO DAILY heart health 08/10/22 09/06/24 History clopidogrel 75 mg tablet 75 mg PO DAILY anti platelet #30 02/03/23 09/06/24 Rx tabs pantoprazole 40 mg tablet,delayed 40 mg PO DAILY reflu x 04/18/23 09/06/24 History release sacubitril 24 mg-valsartan 26 mg 1 tab PO BID . 30 day s #60 tabs 05/07/23 09/06/24 Rx tablet (Entresto) atorvastatin 80 mg tablet 80 mg PO QHS cholesterol 09/06/24 History gabapentin 300 mg capsule 300 mg PO TID nerve pain 09/06/24 History insulin lispro 100 unit/mL 1 sliding scale dose subcut TIDCM 12/29/23 09/06/24 History subcutaneous half-unit pen glucose DIC 2%/RINKU 6%/LIDOC 2% IN 1 - 2 pump subdermal Q6H MN N FOR 02/14/24 09/06/24 History saltsable FEET cholecalciferol (vitamin D3) 1,250 1,250 mcg PO WE sup plement 02/14/24 09/03/24 History mcg (50,000 unit) tablet spironolactone 25 mg tablet 25 mg PO DAILY water pill 30 days 02/17/24 09/06/24 Rx #0 tabs carvedilol 3.125 mg tablet 6.25 mg (2 x 3.125 mg) PO B ID 02/19/24 09/06/24 Rx blood pressure 30 days #0 tabs ergocalciferol (vitamin D2) 1,250 1,250 mcg PO We@1000 #0 caps 02/19/24 09/03/24 Rx mcg (50,000 unit) capsule (Vitamin D2) insulin glargine 100 unit/mL (3 20 unit (0.2 mL) subcu t QPM 30 02/19/24 09/06/24 Rx mL) subcutaneous pen (Lantus days #0 mL Solostar U-100 Insulin) escitalopram oxalate 20 mg tablet 20 mg PO DAILY depre ssion 06/29/24 09/06/24 History furosemide 20 mg tablet 20 mg PO DAILY water pill 09/06/24 History midodrine 2.5 mg tablet 2.5 mg PO DAILY blood pressu re 06/29/24 09/06/24 History polyethylene glycol 3350 17 17 g PO BID PRN constipati on 06/29/24 Unknown History gram/dose oral powder (Miralax) sennosides 8.6 mg-docusate sodium 2 tab PO BID PRN con stipation 06/29/24 Unknown History 50 mg tablet (Stimulant Laxative Plus) tizanidine 4 mg tablet 4 mg PO 3XD spasm 06/29/24 0 09/06/24 History acetaminophen 500 mg tablet 1,000 mg (2 x 500 mg) PO Q 8 #0 tabs 09/02/24 09/06/24 Rx ondansetron 4 mg disintegrating 4 mg PO Q8H PRN PRN Na usea #10 tabs 09/05/24 Unknown Rx tablet Allergy/AdvReac Type Severity Reaction Status Date / Time latex Allergy Hives Verified 09/07/24 22:29 Family History Mother Thyroid disorder Diabetes Hypertension Grandmother Diabetes Uncle Diabetes Aunt Diabetes Other Heart disease Surgical History History of cholecystectomy History of appendectomy History of cholecystectomy Social History household members: spouse and children housing: house Smoking Status: Current every day smoker tobacco type: cigarettes Smoking packsper day: 0.5 Smoking cigarettes per day: 10.0 alcohol intake: never substance use type: marijuana what type of physical activity do you participate in: none do you feel safe at home: Yes Lab / Micro Data 09/15/24 04:08 09/15/24 04:08 Labs: Laboratory Results - last 24 hr 09/14/24 11:36: POC Glucose 288 H 09/14/24 18:20: POC Glucose 248 H 09/14/24 21:03: POC Glucose 188 H 09/15/24 04:08: WBC 9.0, RBC 3.74 L, Hgb 10.3 L, Hct 32.2 L, MCV 86.1, MCH 27.5,MCHC 32.0, RDW Std Deviation 43.8, RDW Coeff of Spencer 14.0, Plt Count 211, MPV 10.0, Immature Gran % (Auto) 0.400, Neut % (Auto) 74.8 H, Lymph % (Auto) 14.8 L,Erie % (Auto) 8.1, Eos % (Auto) 1.2, Baso % (Auto) 0.7, Absolute Neuts (auto) 6.8, Absolute Lymphs (auto) 1.34, Nucleated RBC % 0, Sodium 136, Potassium 3.9, Chloride 100, Carbon Dioxide 27.6, Anion Gap 8, BUN 15, Creatinine 0.79, Estim Creat Clear Calc 93.04, Est GFR (MDRD) Non-Af 89, BUN/Creatinine Ratio 19.5, Glucose 172 H, Calcium 9.1 09/15/24 06:33: POC Glucose 188 H Micro: Microbiology 09/12/24 16:50 Urine, Clean Catch Urine Culture - Preliminary Culture exhibits no growth. 09/15/24 1113 <Electronically signed by Amish Tariq MD> Cosigner Signature (if applicable): CC: RUTH SERVICE DESK DIRECTOR-C Zohreh Mckeon~ Signed [facility] Work Phone: [phone]) [phone] Progress note Author Brenda Posadas [facility] Note Date/Time September 14, 2024 4:3 5pm [facility] Medical Records Department [address] [place] [address] Progress Note - Hospitalist 09/14/24 0910 MR#: [id number] Acct: [id number] Name: TRENTON JACKSON Rep #:[id number] : 1970 54 From: Brenda Posadas MD PCP: RUTH Lawrence, SERVICE DESK DIRECTOR-C Statu s:ADM IN Location: [place] [id number]- 1 Reason for Visit Reason for Visit: Diagnoses Other cystitis without hematuria (09/09/24) Nausea with vomiting, unspecified (09/09/24) Subjective Subjective Patient still reports that he abdominal discomfort, has not changed significantly in quality or location, reports she thinks has been present longertoday but today is denying any pain in urination, still has not had a bowel movement but is now taking stool softeners Objective Data Objective Data Vital Signs: Vital Signs Temp Pulse Resp BP Pulse Ox O2 Del Method 98.2 F 77 16 108/74 99 Room Air 09/14/24 07:42 09/14/24 07:42 09/14/24 07:42 09/14/24 07:42 09/14/24 07:42 09/14/24 08:27 Oxygen Delivery Method Room Air Weight: 85.4 kg Body Mass Index (BMI) 29.5 Intake & Output: Intake and Output for Last 24 Hours 09/12/24 09/13/24 09/14/24 23:59 23:59 23:59 Intake Total 1487.29 / 1487.29 720 / 720 360 / 360 Output Total 1100 / 1100 1000 / 1000 700 / 700 Balance 387.29 / 387.29 -280 / -280 -340 / -340 Lab / Micro Data 09/14/24 05:27 09/14/24 05:27 Labs: Laboratory Results - last 24 hr 09/13/24 11:08: POC Glucose 181 H 09/13/24 16:23: POC Glucose 249 H 09/13/24 22:05: POC Glucose 207 H 09/14/24 05:27: WBC 11.7 H, RBC 4.10 L, Hgb 11.5 L, Hct 36.7 L, MCV 89.5, MCH 28.0, MCHC 31.3 L, RDW Std Deviation 46.5 H, RDW Coeff of Spencer 14.1, Plt Count 129 L, MPV 11.3, Immature Gran % (Auto) 0.600, Neut % (Auto) 72.3 H, Lymph % (Auto) 19.3, Erie % (Auto) 6.0, Eos % (Auto) 1.3, Baso % (Auto) 0.5, Absolute Neuts (auto) 8.4 H, Absolute Lymphs (auto) 2.26, Nucleated RBC % 0, Sodium 134, Potassium 4.6, Chloride 103, Carbon Dioxide 20.0 L, Anion Gap 11, BUN 21 H, Creatinine 0.81, Estim Creat Clear Calc 90.18, Est GFR (MDRD) Non-Af 87, BUN/Creatinine Ratio 25.9 H, Glucose 181 H, Calcium 9.0 09/14/24 06:24: POC Glucose 172 H Micro: Microbiology 09/12/24 16:50 Urine, Clean Catch Urine Culture - Preliminary Culture exhibits no growth. 09/08/24 21:30 Blood Culture (Wb) - Left Hand Blood Culture - Final No growth in 5 days. 09/08/24 21:25 Blood Culture (Wb) - Right Hand Blood Culture - Final No growth in 5 days. 09/09/24 02:20 Urine, Clean Catch Urine Culture - Final Presumptive E. coli 09/08/24 12:44 Stool Enteric Bacteriology - Final 09/08/24 12:44 Stool Clostridioides difficile (PCR) - Final Physical Exam Narrative General: Alert, oriented, no apparent distress HEENT: Atraumatic, normocephalic Eyes: Anicteric, normal conjunctiva, extraocular movements grossly intact Neck: Supple Respiratory: normal respiratory effort Cardiovascular: Regular rate and rhythm GI: Soft, does have tenderness suprapubic to right side, seem less tender when listening with stethoscope and palpating at the same time the did seem to still have some tenderness laterally, no pain on the left side Extremities: Swelling in hands and improving Musculoskeletal: Moving all extremities Neuro: No overt focal neurological deficits Skin: No rashes appreciated Psych: Cooperative Assessment & Plan Assessment/Plan (1) Intractable nausea and vomiting: PLAN: Plan #Possible UTI - CT abdomen queries emphysematous cystitis - Patient with no urinary symptoms, unclear given her recent hospitalization if she ever had to be catheterized as this would potentially explain imaging findings but has had CT scans over the past couple of months which did show similar findings as well - Awaiting UA, pending UA results if they appear suspicious may need empiric coverage but presently patient afebrile and white blood cell count within normallimits with a left shift and no symptoms - Given her history of ESBL would cover with Zosyn -09/09: UA suspicious for UTI, blood pressure and clinically patient does seem to be improving on Zosyn, awaiting culture and sensitivity data for further management -09/10: Continue to wait for UTI, still has some intermittent suprapubic pain and dysuria, will be able to tailor antibiotics and decide on infectious disease consult once these results are available -09/11: Urine culture grew less than thousand colonies of E. coli however lookingback it appears that antibiotics were started before urine was collected. Givenpatient had imaging consistent with infection, low blood pressure, nausea and suprapubic pain that all improved with antibiotics do have high suspicion that patient has true infection, she has grown ESBL in the past making empiric antibiotic treatment challenging. Will consult infectious disease for further recommendations -09/12: Patient still having some of the pain towards the right side but is worsewith urination, Dr. Mcneil with infectious disease evaluated and is repeatingurine culture and UA for emphysematous cystitis, Zosyn changed to meropenem and urology evaluation recommended. Will continue patient on IV antibiotics as recommended, spoke with ID and is recommended that patient be evaluated by urology before discharge, coverage resumes this coming Sunday, discussed with patient and she is agreeable -09/13: Repeat urine culture ordered and pending with patient on meropenem, pending urology consult Sunday. White blood cell count slightly higher with a slight left shift but presently hemodynamically stable, rereviewed CT scan and old ones did appear to have small focus of air however the CT scan had multiple areas of air that appeared especially on the right side of the bladder wall which was a significant difference from previous so do feel it is reasonable to continue patient on IV antibiotics and await urology consult especially given her multiple recent E. coli UTIs -09/14: Repeat urine culture no growth to date, patient with evidence of emphysematous cystitis with pain and multiple recent ESBL UTIs, ID following, patient on Merrem, neurology consult recommended when coverage resumes 09/15 # Chronic combined heart failure -Last echo 05/04/2023 showed EF 15% with stage III diastolic dysfunction -Daily weights -I's and O's -Not in acute exacerbation - Patient received multiple medications for her chronic low back pain in addition to her Coreg, Entresto, spironolactone, Lasix and subsequently became hypotensive but completely asymptomatic - Will give very gentle hydration - Decrease Coreg, holding parameters for Entresto, will hold spironolactone and Lasix - Suspect that this is iatrogenic given lack of new complaints, query if patienthas been compliant with medications at home given the effect on her blood pressure here however given her significantly low EF a low blood pressure is to be anticipated - Patient only takes midodrine daily, will schedule this 3 times a day and can decrease as blood pressure tolerates -09/09: Respiratory status stable, blood pressure improving, unclear if this was infection versus her multiple medications or both, continue to monitor, will hold off on adding back home medications at this time but will add back as tolerated starting tomorrow if patient vitally stable -09/12: Patient's blood pressures improved and she does feel a little bit edematous, some slight edema in hands and feet, will resume home Lasix -09/13: Patient back on her home Lasix and also received her Entresto and Coreg today and yesterday due to improvement in blood pressure -09/14: Patient is hemodynamically improving, unclear if this is due to from an infection as the only thing that changed was that patient is being treated for an underlying UTI Chronic medical problems and/or problems not being actively addressed during today's encounter: # Intractable nausea and vomiting?resolved -CT abdomen pelvis on admission with possible UTI but no inflammatory changes noted around the bowel - Presently resolved - Patient on IV PPI - Does still have stool studies pending if patient has further diarrhea but thusfar this seems to improved - Will advance diet and assess tolerability -09/09: This is resolved, may have been due to possible underlying UTI, continue antibiotics # Chronic lower back and leg pain secondary to chronic compression fractures - Supportive care - PT/OT -09/09: Continuing supportive care, distal complaint of back and leg pain, does appear more comfortable today #Type 2 diabetes mellitus -Glucose checks and sliding scale insulin - Patient to start diet so make this ACHS - Also continue 20 units of insulin glargine # History of coronary artery disease -Aspirin, statin, beta-linda #Tobacco use -Advise cessation -Nicotine replacement available if desired # 2 cm indeterminate right adrenal lesion - Will ultimately need further imaging and/for monitoring, this has been noted on scans previous and this can likely be done on an outpatient basis #GERD -Continue PPI #DVT ppx: Lovenox subcu Brenda Posadas MD Time spent in the patient's overall evaluation,decision-making process, review of diagnostic data, adjustment of management, discussion with other providers, nursing nursing and ancillary staff involved in patient's care documentation, 38Minutes Charges/Coding Visit Charges Inpatient E&M: 02389 Subs Hosp L2 09/14/24 5525 <Electronically signed by Brenda Posadas MD> Cosigner Signature (if applicable): CC: ~ Signed [facility] Work Phone: [phone]) 911-283804-12-2025 Progress note Author Brenda Posadas [facility] Note Date/Time September 13, 2024 5:3 4pm [facility] Medical Records Department [address] [place] [address] Progress Note - Hospitalist 09/13/24937 MR#: [id number] Acct: [id number] Name: TRENTON JACKSON Rep #:[id number] : 1970 54 From: Brenda Posadas MD PCP: Zohreh Mckeon, FERNANDOC, SERVICE DESK DIRECTOR-C Statu s:ADM IN Location: [place] [address] Reason for Visit Reason for Visit: Diagnoses Other cystitis without hematuria (09/09/24) Nausea with vomiting, unspecified (09/09/24) Subjective Subjective Patient still some with suprapubic/right-sided pain, she reports it is about thesame as it was yesterday, no significant nausea, no other new or acute complaints Objective Data Objective Data Vital Signs: Vital Signs Temp Pulse Resp BP Pulse Ox O2 Del Method 97.9 F 89 15 126/76 H 97 Room Air 09/13/24 08:37 09/13/24 08:37 09/13/24 08:37 09/13/24 08:37 09/13/24 08:37 09/13/24 08:37 Oxygen Delivery Method Room Air Weight: 85.1 kg Body Mass Index (BMI) 29.3 Intake & Output: Intake and Output for Last 24 Hours 09/11/24 09/12/24 09/13/24 23:59 23:59 23:59 Intake Total 1650 / 0 1487.29 / 1487.29 120 / 120 Output Total 1100 / 1100 Balance 1650 / 1250 387.29 / 387.29 120 / 120 Lab / Micro Data 09/13/24 05:50 09/13/24 05:50 Labs: Laboratory Results - last 24 hr 09/12/24 12:20: POC Glucose 195 H 09/12/24 16:50: Urine Color Straw, Urine Clarity Clear, Urine pH 6.0, Ur Specific [place] 1.010, Urine Protein 15 H, Urine Glucose (UA) 1000 H, Urine Ketones Negative, Urine Occult Blood Negative, Urine Nitrite Negative, Urine Bilirubin Negative, Urine Urobilinogen Normal, Ur Leukocyte Esterase Negative, Urine RBC 0 SEEN, Urine WBC 0 SEEN, Ur Squamous Epith Cells 0-5 SEEN, Urine Bacteria 0 SEEN, Urine Mucus 0 SEEN, Urine Yeast 1+ 09/12/24 17:07: POC Glucose 352 H 09/12/24 22:16: POC Glucose 271 H 09/13/24 05:50: WBC 11.7 H, RBC 4.01 L, Hgb 11.3 L, Hct 35.1 L, MCV 87.5, MCH 28.2, MCHC 32.2, RDW Std Deviation 44.9 H, RDW Coeff of Spencer 14.0, Plt Count 232,MPV 10.1, Immature Gran % (Auto) 0.600, Neut % (Auto) 75.6 H, Lymph % (Auto) 14.4 L, Erie % (Auto) 6.9, Eos % (Auto) 1.6, Baso % (Auto) 0.9, Absolute Neuts (auto) 8.9 H, Absolute Lymphs (auto) 1.69, Nucleated RBC % 0, Sodium 136, Potassium 4.2, Chloride 104, Carbon Dioxide 21.1, Anion Gap 11, BUN 18, Creatinine 1.02, Estim Creat Clear Calc 71.49, Est GFR (MDRD) Non-Af 66, BUN/Creatinine Ratio 17.6, Glucose 223 H, Calcium 9.1 09/13/24 06:10: POC Glucose 214 H Micro: Microbiology 09/09/24 02:20 Urine, Clean Catch Urine Culture - Final Presumptive E. coli 09/08/24 21:30 Blood Culture (Wb) - Left Hand Blood Culture - Preliminary No growth in 48 hours. 09/08/24 21:25 Blood Culture (Wb) - Right Hand Blood Culture - Preliminary No growth in 48 hours. 09/08/24 12:44 Stool Enteric Bacteriology - Final 09/08/24 12:44 Stool Clostridioides difficile (PCR) - Final Physical Exam Narrative General: Alert, oriented, no apparent distress HEENT: Atraumatic, normocephalic Eyes: Anicteric, normal conjunctiva, extraocular movements grossly intact Neck: Supple Respiratory: normal respiratory effort Cardiovascular: Regular rate and rhythm GI: Soft, does have tenderness suprapubic to right side Extremities: No significant pitting edema but hands and feet slightly puffy Musculoskeletal: Moving all extremities Neuro: No overt focal neurological deficits Skin: No rashes appreciated Psych: Cooperative Assessment & Plan Assessment/Plan (1) Intractable nausea and vomiting: PLAN: Plan #Possible UTI - CT abdomen queries emphysematous cystitis - Patient with no urinary symptoms, unclear given her recent hospitalization if she ever had to be catheterized as this would potentially explain imaging findings but has had CT scans over the past couple of months which did show similar findings as well - Awaiting UA, pending UA results if they appear suspicious may need empiric coverage but presently patient afebrile and white blood cell count within normallimits with a left shift and no symptoms - Given her history of ESBL would cover with Zosyn -09/09: UA suspicious for UTI, blood pressure and clinically patient does seem to be improving on Zosyn, awaiting culture and sensitivity data for further management -09/10: Continue to wait for UTI, still has some intermittent suprapubic pain and dysuria, will be able to tailor antibiotics and decide on infectious disease consult once these results are available -09/11: Urine culture grew less than thousand colonies of E. coli however lookingback it appears that antibiotics were started before urine was collected. Givenpatient had imaging consistent with infection, low blood pressure, nausea and suprapubic pain that all improved with antibiotics do have high suspicion that patient has true infection, she has grown ESBL in the past making empiric antibiotic treatment challenging. Will consult infectious disease for further recommendations -09/12: Patient still having some of the pain towards the right side but is worsewith urination, Dr. Mcneil with infectious disease evaluated and is repeatingurine culture and UA for emphysematous cystitis, Zosyn changed to meropenem and urology evaluation recommended. Will continue patient on IV antibiotics as recommended, spoke with ID and is recommended that patient be evaluated by urology before discharge, coverage resumes this coming Sunday, discussed with patient and she is agreeable -09/13: Repeat urine culture ordered and pending with patient on meropenem, pending urology consult Sunday. White blood cell count slightly higher with a slight left shift but presently hemodynamically stable, rereviewed CT scan and old ones did appear to have small focus of air however the CT scan had multiple areas of air that appeared especially on the right side of the bladder wall which was a significant difference from previous so do feel it is reasonable to continue patient on IV antibiotics and await urology consult especially given her multiple recent E. coli UTIs # Chronic combined heart failure -Last echo 05/04/2023 showed EF 15% with stage III diastolic dysfunction -Daily weights -I's and O's -Not in acute exacerbation - Patient received multiple medications for her chronic low back pain in addition to her Coreg, Entresto, spironolactone, Lasix and subsequently became hypotensive but completely asymptomatic - Will give very gentle hydration - Decrease Coreg, holding parameters for Entresto, will hold spironolactone and Lasix - Suspect that this is iatrogenic given lack of new complaints, query if patienthas been compliant with medications at home given the effect on her blood pressure here however given her significantly low EF a low blood pressure is to be anticipated - Patient only takes midodrine daily, will schedule this 3 times a day and can decrease as blood pressure tolerates -09/09: Respiratory status stable, blood pressure improving, unclear if this was infection versus her multiple medications or both, continue to monitor, will hold off on adding back home medications at this time but will add back as tolerated starting tomorrow if patient vitally stable -09/12: Patient's blood pressures improved and she does feel a little bit edematous, some slight edema in hands and feet, will resume home Lasix -09/13: Patient back on her home Lasix and also received her Entresto and Coreg today and yesterday due to improvement in blood pressure Chronic medical problems and/or problems not being actively addressed during today's encounter: # Intractable nausea and vomiting?resolved -CT abdomen pelvis on admission with possible UTI but no inflammatory changes noted around the bowel - Presently resolved - Patient on IV PPI - Does still have stool studies pending if patient has further diarrhea but thusfar this seems to improved - Will advance diet and assess tolerability -09/09: This is resolved, may have been due to possible underlying UTI, continue antibiotics # Chronic lower back and leg pain secondary to chronic compression fractures - Supportive care - PT/OT -09/09: Continuing supportive care, distal complaint of back and leg pain, does appear more comfortable today #Type 2 diabetes mellitus -Glucose checks and sliding scale insulin - Patient to start diet so make this ACHS - Also continue 20 units of insulin glargine # History of coronary artery disease -Aspirin, statin, beta-linda #Tobacco use -Advise cessation -Nicotine replacement available if desired # 2 cm indeterminate right adrenal lesion - Will ultimately need further imaging and/for monitoring, this has been noted on scans previous and this can likely be done on an outpatient basis #GERD -Continue PPI #DVT ppx: Lovenox subcu Brenda Posadas MD Time spent in the patient's overall evaluation,decision-making process, review of diagnostic data, adjustment of management, discussion with other providers, nursing nursing and ancillary staff involved in patient's care documentation, 40Minutes Charges/Coding Visit Charges Inpatient E&M: 18645 Subs Hosp L2 09/13/24 1734 <Electronically signed by Brenda Posadas MD> Cosigner Signature (if applicable): CC: ~ Signed [facility] Work Phone: 1(296) 442-309204-11-2025 Progress note Author Brenda Posadas [facility] Note Date/Time September 12, 2024 4:2 3pm [facility] Medical Records Department [address] [place] [address] Progress Note - Hospitalist 09/12/24 1615 MR#: [id number] Acct: [id number] Name: TRENTON JACKSON Rep #:[id number] : 1970 54 From: Brenda Posadas MD PCP: RUTH Lawrence, SERVICE DESK DIRECTOR-C Statu s:ADM IN Location: [place] [address] Reason for Visit Reason for Visit: Diagnoses Other cystitis without hematuria (09/09/24) Nausea with vomiting, unspecified (09/09/24) Subjective Subjective Patient still having some abdominal discomfort that she reports waxes and wanes,has not had a bowel movement today, not presently nauseous however, still does have diarrhea pain when she urinates, patient changed to meropenem Objective Data Objective Data Vital Signs: Vital Signs Temp Pulse Resp BP Pulse Ox O2 Del Method 97.2 F L 84 14 106/62 97 Room Air 09/12/24 14:09/12/24 14:09/12/24 14:09/12/24 14:09/12/24 14:09/12/24 14:40 Oxygen Delivery Method Room Air Weight: 83.9 kg Body Mass Index (BMI) 29.0 Intake & Output: Intake and Output for Last 24 Hours 09/10/24 09/11/2409/12/25 23:59 23:59 23:59 Intake Total 1410 / 1410 1650 / 2050 1340 / 1340 Output Total 1100 / 1100 Balance 1410 / 1410 1650 / 1250 240 / 240 Lab / Micro Data 09/12/24 07:36 09/12/24 07:36 Labs: Laboratory Results - last 24 hr 09/11/24 16:14: POC Glucose 114 H 09/11/24 23:21: POC Glucose 331 H 09/12/24 06:43: POC Glucose 210 H 09/12/24 07:36: WBC 10.1, RBC 3.82 L, Hgb 10.8 L, Hct 33.9 L, MCV 88.7 D, MCH 28.3, MCHC 31.9 L, RDW Std Deviation 45.8 H, RDW Coeff of Spencer 14.2, Plt Count , MPV 10.2, Immature Gran % (Auto) 0.800, Neut % (Auto) 67.6, Lymph % (Auto) 23.2,Erie % (Auto) 5.8, Eos % (Auto) 1.8, Baso % (Auto) 0.8, Absolute Neuts (auto) 6.8, Absolute Lymphs (auto) 2.33, Nucleated RBC % 0, Platelet Estimate ADEQUATE,Sodium 134, Potassium 4.7, Chloride 105, Carbon Dioxide 17.3 L, Anion Gap 11, BUN 21 H, Creatinine 0.86, Estim Creat Clear Calc 84.22, Est GFR (MDRD) Non-Af 81, BUN/Creatinine Ratio 24.0 H, Glucose 213 H, Calcium 9.0 09/12/24 12:20: POC Glucose 195 H Micro: Microbiology 09/09/24 02:20 Urine, Clean Catch Urine Culture - Final Presumptive E. coli 09/08/24 21:30 Blood Culture (Wb) - Left Hand Blood Culture - Preliminary No growth in 48 hours. 09/08/24 21:25 Blood Culture (Wb) - Right Hand Blood Culture - Preliminary No growth in 48 hours. 09/08/24 12:44 Stool Enteric Bacteriology - Final 09/08/24 12:44 Stool Clostridioides difficile (PCR) - Final Physical Exam Narrative General: Alert, oriented, no apparent distress HEENT: Atraumatic, normocephalic Eyes: Anicteric, normal conjunctiva, extraocular movements grossly intact Neck: Supple Respiratory: normal respiratory effort Cardiovascular: Regular rate and rhythm GI: Soft, does have tenderness mostly mid to right Extremities: No significant pitting edema but hands and feet slightly puffy Musculoskeletal: Moving all extremities Neuro: No overt focal neurological deficits Skin: No rashes appreciated Psych: Cooperative Assessment & Plan Assessment/Plan (1) Intractable nausea and vomiting: PLAN: Plan #Possible UTI - CT abdomen queries emphysematous cystitis - Patient with no urinary symptoms, unclear given her recent hospitalization if she ever had to be catheterized as this would potentially explain imaging findings but has had CT scans over the past couple of months which did show similar findings as well - Awaiting UA, pending UA results if they appear suspicious may need empiric coverage but presently patient afebrile and white blood cell count within normallimits with a left shift and no symptoms - Given her history of ESBL would cover with Zosyn -09/09: UA suspicious for UTI, blood pressure and clinically patient does seem to be improving on Zosyn, awaiting culture and sensitivity data for further management -09/10: Continue to wait for UTI, still has some intermittent suprapubic pain and dysuria, will be able to tailor antibiotics and decide on infectious disease consult once these results are available -09/11: Urine culture grew less than thousand colonies of E. coli however lookingback it appears that antibiotics were started before urine was collected. Givenpatient had imaging consistent with infection, low blood pressure, nausea and suprapubic pain that all improved with antibiotics do have high suspicion that patient has true infection, she has grown ESBL in the past making empiric antibiotic treatment challenging. Will consult infectious disease for further recommendations -09/12: Patient still having some of the pain towards the right side but is worsewith urination, Dr. Mcneil with infectious disease evaluated and is repeatingurine culture and UA for emphysematous cystitis, Zosyn changed to meropenem and urology evaluation recommended. Will continue patient on IV antibiotics as recommended, spoke with ID and is recommended that patient be evaluated by urology before discharge, coverage resumes this coming Sunday, discussed with patient and she is agreeable # Chronic combined heart failure -Last echo 05/04/2023 showed EF 15% with stage III diastolic dysfunction -Daily weights -I's and O's -Not in acute exacerbation - Patient received multiple medications for her chronic low back pain in addition to her Coreg, Entresto, spironolactone, Lasix and subsequently became hypotensive but completely asymptomatic - Will give very gentle hydration - Decrease Coreg, holding parameters for Entresto, will hold spironolactone and Lasix - Suspect that this is iatrogenic given lack of new complaints, query if patienthas been compliant with medications at home given the effect on her blood pressure here however given her significantly low EF a low blood pressure is to be anticipated - Patient only takes midodrine daily, will schedule this 3 times a day and can decrease as blood pressure tolerates -09/09: Respiratory status stable, blood pressure improving, unclear if this was infection versus her multiple medications or both, continue to monitor, will hold off on adding back home medications at this time but will add back as tolerated starting tomorrow if patient vitally stable -09/12: Patient's blood pressures improved and she does feel a little bit edematous, some slight edema in hands and feet, will resume home Lasix Chronic medical problems and/or problems not being actively addressed during today's encounter: # Intractable nausea and vomiting?resolved -CT abdomen pelvis on admission with possible UTI but no inflammatory changes noted around the bowel - Presently resolved - Patient on IV PPI - Does still have stool studies pending if patient has further diarrhea but thusfar this seems to improved - Will advance diet and assess tolerability -09/09: This is resolved, may have been due to possible underlying UTI, continue antibiotics # Chronic lower back and leg pain secondary to chronic compression fractures - Supportive care - PT/OT -09/09: Continuing supportive care, distal complaint of back and leg pain, does appear more comfortable today #Type 2 diabetes mellitus -Glucose checks and sliding scale insulin - Patient to start diet so make this ACHS - Also continue 20 units of insulin glargine # History of coronary artery disease -Aspirin, statin, beta-linda #Tobacco use -Advise cessation -Nicotine replacement available if desired # 2 cm indeterminate right adrenal lesion - Will ultimately need further imaging and/for monitoring, this has been noted on scans previous and this can likely be done on an outpatient basis #GERD -Continue PPI #DVT ppx: Lovenox subcu Brenda Posadas MD Time spent in the patient's overall evaluation,decision-making process, review of diagnostic data, adjustment of management, discussion with other providers, nursing nursing and ancillary staff involved in patient's care documentation, 38Minutes Charges/Coding Visit Charges Inpatient E&M: 61598 Subs Hosp L2 09/12/24 1623 <Electronically signed by Brenda Posadas MD> Cosigner Signature (if applicable): CC: ~ Signed [facility] Work Phone: [phone]) 396-419504-11-2025 Consult note Author Nichelle Mcneil [facility] Note Date/Time September 12, 2024 2:5 8pm [facility] Medical Records Department [address] [place] [address] Consultation - Infectious Dx 09/12/24 1453 MR#: [id number] Acct: [id number] Name: TRENTON JACKSON Rep #:[id number] : 1970 54 From: Nichelle osborne MD PCP: RUTH Lawrence, SERVICE DESK DIRECTOR-C Statu s:ADM IN Location: [place] [address] Assessment & Plan Assessment/Plan (1) Emphysematous cystitis: PLAN: H/o esbl uti. Will repeat ucx and UA. Will change zosyn to ena. May need urology eval. Will follow, thank you, d/w Dr. Posadas. (2) Intractable nausea and vomiting: HPI Consult Data Date of Consult: 09/12/24 HPI Narrative Reason for Consultation: cystitis HPI Narrative: TRENTON JACKSON, is a 54 F with h/o DM, htn, PAD, presented 09/07 with 5 days n/v, abd pain, and RLE pain. CT showed possible emphysematous cystitis; no recent catheterizations per patient. In evening of 09/08, started on zosyn. UA/UCx checked 0200 on 09/09. Remains on zosyn, continues to have pain. Reports crying in bed due to ongoing pain. No dysuria, no fever. Full ROS performed and neg except as noted above. [facility] Medical History L5 vertebral fracture ESBL (extended spectrum beta-lactamase) producing bacteria infection Generalized weakness Candidiasis of breast Colitis Debility PTSD (post-traumatic stress disorder) Closed compression fracture of L3 vertebra Hypokalemia Colitis BiPAP (biphasic positive airway pressure) dependence Coronary artery disease On home oxygen therapy Rheumatoid arthritis Sleep apnea Smoker DVT (deep venous thrombosis) Seizures Amputation toe Psychiatric disorder Ischemic cardiomyopathy Diabetes type 2, uncontrolled Essential hypertension Substance abuse Alcohol abuse Depression Osteoporosis GERD (gastroesophageal reflux disease) Pulmonary embolism Myocardial infarct Pericardial effusion Hypoxemia Acute dyspnea Aftercare following surgery of the circulatory system Hx of fracture of humerus Toe amputee Hyperlipidemia CHF (congestive heart failure) CAD (coronary artery disease), rincon coronary artery Home Medications ?Medication ?Instructions ?Recorded ?Last Taken ?Type aspirin 81 mg capsule 81 mg PO DAILY heart health 08/10/22 09/06/24 History clopidogrel 75 mg tablet 75 mg PO DAILY anti platelet #30 02/03/23 09/06/24 Rx tabs pantoprazole 40 mg tablet,delayed 40 mg PO DAILY reflu x 04/18/23 09/06/24 History release sacubitril 24 mg-valsartan 26 mg 1 tab PO BID . 30 day s #60 tabs 05/07/23 09/06/24 Rx tablet (Entresto) atorvastatin 80 mg tablet 80 mg PO QHS cholesterol 09/06/24 History gabapentin 300 mg capsule 300 mg PO TID nerve pain 09/06/24 History insulin lispro 100 unit/mL 1 sliding scale dose subcut TIDCM 12/29/23 09/06/24 History subcutaneous half-unit pen glucose DIC 2%/RINKU 6%/LIDOC 2% IN 1 - 2 pump subdermal Q6H MN N FOR 02/14/24 09/06/24 History saltsable FEET cholecalciferol (vitamin D3) 1,250 1,250 mcg PO WE sup plement 02/14/24 09/03/24 History mcg (50,000 unit) tablet spironolactone 25 mg tablet 25 mg PO DAILY water pill 30 days 02/17/24 09/06/24 Rx #0 tabs carvedilol 3.125 mg tablet 6.25 mg (2 x 3.125 mg) PO B ID 02/19/24 09/06/24 Rx blood pressure 30 days #0 tabs ergocalciferol (vitamin D2) 1,250 1,250 mcg PO We@1000 #0 caps 02/19/24 09/03/24 Rx mcg (50,000 unit) capsule (Vitamin D2) insulin glargine 100 unit/mL (3 20 unit (0.2 mL) subcu t QPM 30 02/19/24 09/06/24 Rx mL) subcutaneous pen (Lantus days #0 mL Solostar U-100 Insulin) escitalopram oxalate 20 mg tablet 20 mg PO DAILY depre ssion 06/29/24 09/06/24 History furosemide 20 mg tablet 20 mg PO DAILY water pill 09/06/24 History midodrine 2.5 mg tablet 2.5 mg PO DAILY blood pressu re 06/29/24 09/06/24 History polyethylene glycol 3350 17 17 g PO BID PRN constipati on 06/29/24 Unknown History gram/dose oral powder (Miralax) sennosides 8.6 mg-docusate sodium 2 tab PO BID PRN con stipation 06/29/24 Unknown History 50 mg tablet (Stimulant Laxative Plus) tizanidine 4 mg tablet 4 mg PO 3XD spasm 06/29/24 0 09/06/24 History acetaminophen 500 mg tablet 1,000 mg (2 x 500 mg) PO Q 8 #0 tabs 09/02/24 09/06/24 Rx ondansetron 4 mg disintegrating 4 mg PO Q8H PRN PRN Na usea #10 tabs 09/05/24 Unknown Rx tablet Allergy/AdvReac Type Severity Reaction Status Date / Time latex Allergy Hives Verified 09/07/24 22:29 Family History Mother Thyroid disorder Diabetes Hypertension Grandmother Diabetes Uncle Diabetes Aunt Diabetes Other Heart disease Surgical History History of cholecystectomy History of appendectomy History of cholecystectomy Social History household members: spouse and children housing: house Smoking Status: Current every day smoker tobacco type: cigarettes Smoking packsper day: 0.5 Smoking cigarettes per day: 10.0 alcohol intake: never substance use type: marijuana what type of physical activity do you participate in: none do you feel safe at home: Yes Physical Exam Const alert, oriented x3 and no apparent distress Constitutional Narrative: uncomfortable HEENT normocephalic and head/scalp atraumatic Eyes PERRL and EOMs intact bilaterally Neck supple and No nodes Resp normal air movement and clear to auscultation bilaterally Cardio regular rate and regular rhythm GI soft to palpation, non-tender and non-distended Extremity General Extremity: Negative for edema Skin no rashes or lesions noted Neuro CN's II-XII intact bilaterally Lab / Micro Data Attestation: I reviewed the patient's lab results. 09/12/24 07:36 09/12/24 07:36 Labs: Laboratory Results - last 24 hr 09/11/24 16:14: POC Glucose 114 H 09/11/24 23:21: POC Glucose 331 H 09/12/24 06:43: POC Glucose 210 H 09/12/24 07:36: WBC 10.1, RBC 3.82 L, Hgb 10.8 L, Hct 33.9 L, MCV 88.7 D, MCH 28.3, MCHC 31.9 L, RDW Std Deviation 45.8 H, RDW Coeff of Spencer 14.2, Plt Count , MPV 10.2, Immature Gran % (Auto) 0.800, Neut % (Auto) 67.6, Lymph % (Auto) 23.2,[place] % (Auto) 5.8, Eos % (Auto) 1.8, Baso % (Auto) 0.8, Absolute Neuts (auto) 6.8, Absolute Lymphs (auto) 2.33, Nucleated RBC % 0, Platelet Estimate ADEQUATE,Sodium 134, Potassium 4.7, Chloride 105, Carbon Dioxide 17.3 L, Anion Gap 11, BUN 21 H, Creatinine 0.86, Estim Creat Clear Calc 84.22, Est GFR (MDRD) Non-Af 81, BUN/Creatinine Ratio 24.0 H, Glucose 213 H, Calcium 9.0 09/12/24 12:20: POC Glucose 195 H 09/12/24 1458 <Electronically signed by Nichelle Mcneil MD> Cosigner Signature (if applicable): CC: RUTH SERVICE DESK DIRECTORBrian Mckeon~ Signed [facility] Work Phone: [phone] 601-300604-10-2025 Progress note Author Brenda Posadas [facility] Note Date/Time September 11, 2024 4:1 0pm [facility] Medical Records Department [address] [place] [address] Progress Note - Hospitalist 09/11/24 1606 MR#: [id number] Acct: [id number] Name: TRENTON JACKSON Rep #:[id number] : 1970 54 From: Brenda Posadas MD PCP: Zohreh Mckeon, VSC, SERVICE DESK DIRECTOR-C Statu s:ADM IN Location: [place] [address] Reason for Visit Reason for Visit: Diagnoses Nausea with vomiting, unspecified (09/09/24) Subjective Subjective Patient reports some increased back and abdominal pain today with increased leg pain, has not vomited, still finds some discomfort with urination Objective Data Objective Data Vital Signs: Vital Signs Temp Pulse Resp BP Pulse Ox O2 Del Method 97.2 F L 80 16 106/67 99 Room Air 09/11/24 14:14 09/11/24 14:14 09/11/24 14:14 09/11/24 14:14 09/11/24 14:14 09/11/24 14:14 Oxygen Delivery Method Room Air Weight: 81.8 kg Body Mass Index (BMI) 28.2 Intake & Output: Intake and Output for Last 24 Hours 09/09/24 09/10/24 09/11/24 23:59 23:59 23:59 Intake Total 423.33 / 423.33 1410 / 1410 1000 / 1000 Output Total 600 / 600 Balance -176.67 / -176.67 1410 / 1410 1000 / 1000 Lab / Micro Data 09/11/24 07:02 09/11/24 07:02 Labs: Laboratory Results - last 24 hr 09/08/24 05:56: Vit D 1,25-Dihydroxy 29.9 09/10/24 16:30: POC Glucose 149 H 09/10/24 22:30: POC Glucose 241 H 09/11/24 06:27: POC Glucose 142 H 09/11/24 07:02: WBC 10.0, RBC 3.92 L, Hgb 11.0 L, Hct 33.1 L, MCV 84.4, MCH 28.1, MCHC 33.2, RDW Std Deviation 43.2, RDW Coeff of Spencer 14.0, Plt Count 252, MPV 9.9, Immature Gran % (Auto) 0.600, Neut % (Auto) 68.0, Lymph % (Auto) 22.6, Erie % (Auto) 6.3, Eos % (Auto) 1.9, Baso % (Auto) 0.6, Absolute Neuts (auto) 6.8, Absolute Lymphs (auto) 2.26, Nucleated RBC % 0, Sodium 136, Potassium 4.0, Chloride 104, Carbon Dioxide 21.7, Anion Gap 11, BUN 18, Creatinine 0.84, Estim Creat Clear Calc 85.20, Est GFR (MDRD) Non-Af 84, BUN/Creatinine Ratio 21.7 H, Glucose 171 H, Calcium 9.0 09/11/24 11:54: POC Glucose 338 H Micro: Microbiology 09/09/24 02:20 Urine, Clean Catch Urine Culture - Final Presumptive E. coli 09/08/24 21:30 Blood Culture (Wb) - Left Hand Blood Culture - Preliminary No growth in 48 hours. 09/08/24 21:25 Blood Culture (Wb) - Right Hand Blood Culture - Preliminary No growth in 48 hours. 09/08/24 12:44 Stool Enteric Bacteriology - Final 09/08/24 12:44 Stool Clostridioides difficile (PCR) - Final Radiography Diagnostic Testing: Radiology Impression KUB X-Ray 09/11/24 13:00 IMPRESSION: Fecal retention in the colon consistent with constipation. Reading Location: [facility] Physical Exam Narrative General: Alert, oriented, no apparent distress HEENT: Atraumatic, normocephalic Eyes: Anicteric, normal conjunctiva, extraocular movements grossly intact Neck: Supple Respiratory: normal respiratory effort Cardiovascular: Regular rate and rhythm GI: Soft, little bit tender to palpation somewhat on the right to central side without any rebound, guarding, rigidity Extremities: No significant pitting edema Musculoskeletal: Moving all extremities Neuro: No overt focal neurological deficits Skin: No rashes appreciated Psych: Cooperative Assessment & Plan Assessment/Plan (1) Intractable nausea and vomiting: PLAN: Plan #Possible UTI - CT abdomen queries emphysematous cystitis - Patient with no urinary symptoms, unclear given her recent hospitalization if she ever had to be catheterized as this would potentially explain imaging findings but has had CT scans over the past couple of months which did show similar findings as well - Awaiting UA, pending UA results if they appear suspicious may need empiric coverage but presently patient afebrile and white blood cell count within normallimits with a left shift and no symptoms - Given her history of ESBL would cover with Zosyn -09/09: UA suspicious for UTI, blood pressure and clinically patient does seem to be improving on Zosyn, awaiting culture and sensitivity data for further management -09/10: Continue to wait for UTI, still has some intermittent suprapubic pain and dysuria, will be able to tailor antibiotics and decide on infectious disease consult once these results are available -09/11: Urine culture grew less than thousand colonies of E. coli however lookingback it appears that antibiotics were started before urine was collected. Givenpatient had imaging consistent with infection, low blood pressure, nausea and suprapubic pain that all improved with antibiotics do have high suspicion that patient has true infection, she has grown ESBL in the past making empiric antibiotic treatment challenging. Will consult infectious disease for further recommendations # Vague abdominal discomfort - Patient has some vague discomfort more on the right side without any alarming symptoms, abdomen soft without rebound, guarding, rigidity, KUB obtained which shows fecal retention consistent with constipation, will schedule bowel regimen Chronic medical problems and/or problems not being actively addressed during today's encounter: # Intractable nausea and vomiting?resolved -CT abdomen pelvis on admission with possible UTI but no inflammatory changes noted around the bowel - Presently resolved - Patient on IV PPI - Does still have stool studies pending if patient has further diarrhea but thusfar this seems to improved - Will advance diet and assess tolerability -09/09: This is resolved, may have been due to possible underlying UTI, continue antibiotics # Chronic lower back and leg pain secondary to chronic compression fractures - Supportive care - PT/OT -09/09: Continuing supportive care, distal complaint of back and leg pain, does appear more comfortable today # Chronic combined heart failure -Last echo 05/04/2023 showed EF 15% with stage III diastolic dysfunction -Daily weights -I's and O's -Not in acute exacerbation - Patient received multiple medications for her chronic low back pain in addition to her Coreg, Entresto, spironolactone, Lasix and subsequently became hypotensive but completely asymptomatic - Will give very gentle hydration - Decrease Coreg, holding parameters for Entresto, will hold spironolactone and Lasix - Suspect that this is iatrogenic given lack of new complaints, query if patienthas been compliant with medications at home given the effect on her blood pressure here however given her significantly low EF a low blood pressure is to be anticipated - Patient only takes midodrine daily, will schedule this 3 times a day and can decrease as blood pressure tolerates -09/09: Respiratory status stable, blood pressure improving, unclear if this was infection versus her multiple medications or both, continue to monitor, will hold off on adding back home medications at this time but will add back as tolerated starting tomorrow if patient vitally stable #Type 2 diabetes mellitus -Glucose checks and sliding scale insulin - Patient to start diet so make this ACHS - Also continue 20 units of insulin glargine # History of coronary artery disease -Aspirin, statin, beta-linda #Tobacco use -Advise cessation -Nicotine replacement available if desired # 2 cm indeterminate right adrenal lesion - Will ultimately need further imaging and/for monitoring, this has been noted on scans previous and this can likely be done on an outpatient basis #GERD -Continue PPI #DVT ppx: Lovenox subcu Brenda Posadas MD Time spent in the patient's overall evaluation,decision-making process, review of diagnostic data, adjustment of management, discussion with other providers, nursing nursing and ancillary staff involved in patient's care documentation, 37Minutes Charges/Coding Visit Charges Inpatient E&M: 75226 Subs Hosp L2 09/11/24 1610 <Electronically signed by Brenda Posadas MD> Cosigner Signature (if applicable): CC: ~ Signed [facility] Work Phone: 1(863) 343-993904-10-2025 Radiology Diagnostic study [facility]04-09-2025 Progress note Author Brenda Posadas [facility] Note Date/Time September 10, 2024 5:34 pm [facility] Medical Records Department [address] [place] [address] Progress Note - Hospitalist 09/10/24 1731 MR#: [id number] Acct: [id number] Name: TRENTON JACKSON Rep #:[id number] : 1970 54 From: Brenda Posadas MD PCP: RUTH Lawrence, SERVICE DESK DIRECTOR-C Statu s:ADM IN Location: [place] [address] Reason for Visit Reason for Visit: Diagnoses Nausea with vomiting, unspecified (09/09/24) Subjective Subjective Patient still some intermittent suprapubic discomfort and pain on urination, felt a little nauseous earlier, overall does feel better than she did, no further diarrhea or nausea and vomiting noted at this time Objective Data Objective Data Vital Signs: Vital Signs Temp Pulse Resp BP Pulse Ox O2 Del Method 97.8 F 80 16 132/83 H 100 Room Air 09/10/24 13:20 09/10/24 15:00 09/10/24 13:20 09/10/24 13:20 09/10/24 13:20 09/10/24 13:20 Oxygen Delivery Method Room Air Weight: 81.6 kg Body Mass Index (BMI) 28.1 Intake & Output: Intake and Output for Last 24 Hours 09/08/24 09/09/24 09/10/24 23:59 23:59 23:59 Intake Total 2265 / 2265 423.33 / 423.33 460 / 460 Output Total 1400 / 1400 600 / 600 Balance 865 / 865 -176.67 / -176.67 460 / 460 Lab / Micro Data 09/10/24 05:54 09/10/24 05:54 Labs: Laboratory Results - last 24 hr 09/09/24 21:08: POC Glucose 193 H 09/10/24 05:54: WBC 10.0, RBC 3.94 L, Hgb 11.0 L, Hct 33.4 L, MCV 84.8, MCH 27.9, MCHC 32.9, RDW Std Deviation 43.5, RDW Coeff of Spencer 14.1, Plt Count 245, MPV 9.9, Immature Gran % (Auto) 0.500, Neut % (Auto) 72.8 H, Lymph % (Auto) 18.5L, Erie % (Auto) 6.0, Eos % (Auto) 1.6, Baso % (Auto) 0.6, Absolute Neuts (auto)7.2, Absolute Lymphs (auto) 1.84, Nucleated RBC % 0, Sodium 136, Potassium 4.4, Chloride 105, Carbon Dioxide 23.5, Anion Gap 8, BUN 18, Creatinine 1.00, Estim Creat Clear Calc 71.49, Est GFR (MDRD) Non-Af 68, BUN/Creatinine Ratio 18.2, Glucose 251 H, Calcium 8.7 09/10/24 06:34: POC Glucose 234 H 09/10/24 11:44: POC Glucose 250 H 09/10/24 16:30: POC Glucose 149 H Micro: Microbiology 09/08/24 12:44 Stool Enteric Bacteriology - Final 09/08/24 12:44 Stool Clostridioides difficile (PCR) - Final Physical Exam Narrative General: Alert, oriented, no apparent distress HEENT: Atraumatic, normocephalic Eyes: Anicteric, normal conjunctiva, extraocular movements grossly intact Neck: Supple Respiratory: Clear to auscultation bilaterally, normal respiratory effort Cardiovascular: Regular rate and rhythm GI: Soft, no significant tenderness, no rebound, guarding, rigidity, nondistended Extremities: No significant pitting edema Musculoskeletal: Moving all extremities Neuro: No overt focal neurological deficits Skin: No rashes appreciated Psych: Cooperative Assessment & Plan Assessment/Plan (1) Intractable nausea and vomiting: PLAN: Plan #Possible UTI - CT abdomen queries emphysematous cystitis - Patient with no urinary symptoms, unclear given her recent hospitalization if she ever had to be catheterized as this would potentially explain imaging findings but has had CT scans over the past couple of months which did show similar findings as well - Awaiting UA, pending UA results if they appear suspicious may need empiric coverage but presently patient afebrile and white blood cell count within normallimits with a left shift and no symptoms - Given her history of ESBL would cover with Zosyn -09/09: UA suspicious for UTI, blood pressure and clinically patient does seem to be improving on Zosyn, awaiting culture and sensitivity data for further management -09/10: Continue to wait for UTI, still has some intermittent suprapubic pain and dysuria, will be able to tailor antibiotics and decide on infectious disease consult once these results are available Chronic medical problems and/or problems not being actively addressed during today's encounter: # Intractable nausea and vomiting?resolved -CT abdomen pelvis on admission with possible UTI but no inflammatory changes noted around the bowel - Presently resolved - Patient on IV PPI - Does still have stool studies pending if patient has further diarrhea but thusfar this seems to improved - Will advance diet and assess tolerability -09/09: This is resolved, may have been due to possible underlying UTI, continue antibiotics # Chronic lower back and leg pain secondary to chronic compression fractures - Supportive care - PT/OT -09/09: Continuing supportive care, distal complaint of back and leg pain, does appear more comfortable today # Chronic combined heart failure -Last echo 05/04/2023 showed EF 15% with stage III diastolic dysfunction -Daily weights -I's and O's -Not in acute exacerbation - Patient received multiple medications for her chronic low back pain in addition to her Coreg, Entresto, spironolactone, Lasix and subsequently became hypotensive but completely asymptomatic - Will give very gentle hydration - Decrease Coreg, holding parameters for Entresto, will hold spironolactone and Lasix - Suspect that this is iatrogenic given lack of new complaints, query if patienthas been compliant with medications at home given the effect on her blood pressure here however given her significantly low EF a low blood pressure is to be anticipated - Patient only takes midodrine daily, will schedule this 3 times a day and can decrease as blood pressure tolerates -09/09: Respiratory status stable, blood pressure improving, unclear if this was infection versus her multiple medications or both, continue to monitor, will hold off on adding back home medications at this time but will add back as tolerated starting tomorrow if patient vitally stable #Type 2 diabetes mellitus -Glucose checks and sliding scale insulin - Patient to start diet so make this ACHS - Also continue 20 units of insulin glargine # History of coronary artery disease -Aspirin, statin, beta-linda #Tobacco use -Advise cessation -Nicotine replacement available if desired # 2 cm indeterminate right adrenal lesion - Will ultimately need further imaging and/for monitoring, this has been noted on scans previous and this can likely be done on an outpatient basis #GERD -Continue PPI #DVT ppx: Lovenox subcu Brenda Posadas MD Charges/Coding Visit Charges Inpatient E&M: 41760 Subs Hosp L1 09/10/24 9926 <Electronically signed by Brenda Posadas MD> Cosigner Signature (if applicable): CC: ~ Signed [facility] Work Phone: 1(718) 172-251904-08-2025 Progress note Author Brenda Posadas [facility] Note Date/Time September 09, 2024 6:46 pm [facility] Medical Records Department [address] [place] [address] Progress Note - Hospitalist 09/09/24 2156 MR#: [id number] Acct: [id number] Name: TRENTON JACKSON Rep #:[id number] : 1970 54 From: Brenda Posadas MD PCP: Zohreh Mckeon, VSC, SERVICE DESK DIRECTOR-C Statu s:ADM REHAN Location: [place] [address] Reason for Visit Reason for Visit: Diagnoses Nausea with vomiting, unspecified (09/07/24) Subjective Subjective Patient still has pain in back and legs but reports abdominal pain is much improved, no further nausea or vomiting, feels more awake today and overall better Objective Data Objective Data Vital Signs: Vital Signs Temp Pulse Resp BP Pulse Ox O2 Del Method 96.8 F L 79 16 115/87 H 99 Room Air 09/09/24 14:45 09/09/24 14:45 09/09/24 14:45 09/09/24 14:45 09/09/24 14:45 09/09/24 14:45 Oxygen Delivery Method Room Air Weight: 81.4 kg Body Mass Index (BMI) 28.0 Intake & Output: Intake and Output for Last 24 Hours 09/07/24 09/08/24 09/09/24 23:59 23:59 23:59 Intake Total 1410 / 1410 2265 / 2265 373.33 / 373.33 Output Total 1400 / 1400 600 / 600 Balance 1410 / 710 865 / 865 -226.67 / -226.67 Lab / Micro Data 09/09/24 05:40 09/09/24 05:40 Labs: Laboratory Results - last 24 hr 09/08/24 20:05: POC Glucose 245 H 09/08/24 22:00: POC Glucose 245 H 09/09/24 02:20: Urine Color Yellow, Urine Clarity Clear, Urine pH 6.0, Ur Specific [place] 1.010, Urine Protein 30 H, Urine Glucose (UA) 100 H, Urine Ketones Negative, Urine Occult Blood 25 H, Urine Nitrite Positive H, Urine Bilirubin Negative, Urine Urobilinogen Normal, Ur Leukocyte Esterase 500 H, Urine RBC 0 SEEN, Urine WBC 0- 5 SEEN, Ur Squamous Epith Cells 0 SEEN, Urine Bacteria 1+, Urine Mucus 0 SEEN 09/09/24 05:40: WBC 11.0, RBC 3.83 L, Hgb 10.9 L, Hct 32.6 L, MCV 85.1, MCH 28.5, MCHC 33.4, RDW Std Deviation 43.3, RDW Coeff of Spencer 14.0, Plt Count 247, MPV 9.6, Immature Gran % (Auto) 0.500, Neut % (Auto) 67.1, Lymph % (Auto) 23.9, Erie % (Auto) 5.5, Eos % (Auto) 2.3, Baso % (Auto) 0.7, Absolute Neuts (auto) 7.4, Absolute Lymphs (auto) 2.64, Nucleated RBC % 0, Sodium 132 L, Potassium 3.7, Chloride 104, Carbon Dioxide 16.0 L, Anion Gap 13, BUN 15, Creatinine 0.99,Estim Creat Clear Calc 72.12, Est GFR (MDRD) Non-Af 68, BUN/Creatinine Ratio 14.8, Glucose 156 H, Calcium 8.5, Phosphorus 3.2, Magnesium 2.9 H 09/09/24 06:26: POC Glucose 194 H 09/09/24 11:30: POC Glucose 228 H 09/09/24 16:54: POC Glucose 227 H Micro: Microbiology 09/08/24 12:44 Stool Enteric Bacteriology - Final 09/08/24 12:44 Stool Clostridioides difficile (PCR) - Final Physical Exam Narrative General: Alert, oriented, no apparent distress HEENT: Atraumatic, normocephalic Eyes: Anicteric, normal conjunctiva, extraocular movements grossly intact Neck: Supple Respiratory: Clear to auscultation bilaterally, normal respiratory effort Cardiovascular: Regular rate and rhythm GI: Soft, no significant tenderness, no rebound, guarding, rigidity, nondistended Extremities: No significant pitting edema Musculoskeletal: Moving all extremities Neuro: No overt focal neurological deficits Skin: No rashes appreciated Psych: Cooperative Assessment & Plan Assessment/Plan (1) Intractable nausea and vomiting: PLAN: Plan #Possible UTI - CT abdomen queries emphysematous cystitis - Patient with no urinary symptoms, unclear given her recent hospitalization if she ever had to be catheterized as this would potentially explain imaging findings but has had CT scans over the past couple of months which did show similar findings as well - Awaiting UA, pending UA results if they appear suspicious may need empiric coverage but presently patient afebrile and white blood cell count within normallimits with a left shift and no symptoms - Given her history of ESBL would cover with Zosyn -4/8: UA suspicious for UTI, blood pressure and clinically patient does seem to be improving on Zosyn, awaiting culture and sensitivity data for further management # Intractable nausea and vomiting?resolved -CT abdomen pelvis on admission with possible UTI but no inflammatory changes noted around the bowel - Presently resolved - Patient on IV PPI - Does still have stool studies pending if patient has further diarrhea but thusfar this seems to improved - Will advance diet and assess tolerability -09/09: This is resolved, may have been due to possible underlying UTI, continue antibiotics # Chronic lower back and leg pain secondary to chronic compression fractures - Supportive care - PT/OT -09/09: Continuing supportive care, distal complaint of back and leg pain, does appear more comfortable today # Chronic combined heart failure -Last echo 05/04/2023 showed EF 15% with stage III diastolic dysfunction -Daily weights -I's and O's -Not in acute exacerbation - Patient received multiple medications for her chronic low back pain in addition to her Coreg, Entresto, spironolactone, Lasix and subsequently became hypotensive but completely asymptomatic - Will give very gentle hydration - Decrease Coreg, holding parameters for Entresto, will hold spironolactone and Lasix - Suspect that this is iatrogenic given lack of new complaints, query if patienthas been compliant with medications at home given the effect on her blood pressure here however given her significantly low EF a low blood pressure is to be anticipated - Patient only takes midodrine daily, will schedule this 3 times a day and can decrease as blood pressure tolerates -09/09: Respiratory status stable, blood pressure improving, unclear if this was infection versus her multiple medications or both, continue to monitor, will hold off on adding back home medications at this time but will add back as tolerated starting tomorrow if patient vitally stable Chronic medical problems and/or problems not being actively addressed during today's encounter: #Type 2 diabetes mellitus -Glucose checks and sliding scale insulin - Patient to start diet so make this ACHS - Also continue 20 units of insulin glargine # History of coronary artery disease -Aspirin, statin, beta-linda #Tobacco use -Advise cessation -Nicotine replacement available if desired # 2 cm indeterminate right adrenal lesion - Will ultimately need further imaging and/for monitoring, this has been noted on scans previous and this can likely be done on an outpatient basis #GERD -Continue PPI #DVT ppx: Lovenox subcu Brenda Posadas MD Time spent in the patient's overall evaluation,decision-making process, review of diagnostic data, adjustment of management, discussion with other providers, nursing nursing and ancillary staff involved in patient's care documentation, 40Minutes Charges/Coding Visit Charges Inpatient E&M: 00516 Subs Hosp L2 09/09/24 1846 <Electronically signed by Brenda Posadas MD> Cosigner Signature (if applicable): CC: ~ Signed [facility] Work Phone: 1(548) 594-541304-07-2025 Progress note Author Brenda Posadas [facility] Note Date/Time September 08, 2024 7:37 pm [facility] Medical Records Department [address] [place] [address] Progress Note - Hospitalist 09/08/24999 MR#: [id number] Acct: [id number] Name: TRENTON JACKSON Rep #:[id number] : 1970 54 From: Brenda Posadas MD PCP: RUTH Lawrence, SERVICE DESK DIRECTOR-C Statu s:ADM REHAN Location: [place] [address] Reason for Visit Reason for Visit: Diagnoses Nausea with vomiting, unspecified (09/07/24) Subjective Subjective Patient evaluated at bedside, she reports that she is not feeling nauseous anymore and does not think she has had another bowel movement, denies any abdominal pain but does report back and leg pain which is her main complaint today Objective Data Objective Data Vital Signs: Vital Signs Temp Pulse Resp BP Pulse Ox O2 Del Method 97.6 F L 74 16 112/66 96 Room Air 09/08/24 04:11 09/08/24 04:11 09/08/24 04:11 09/08/24 04:11 09/08/24 04:11 09/08/24 04:15 Oxygen Delivery Method Room Air Weight: 76.5 kg Body Mass Index (BMI) 26.4 Intake & Output: Intake and Output for Last 24 Hours 09/06/24 09/07/24 09/08/24 23:59 23:59 23:59 Intake Total 1410 / 1410 100 / 100 Output Total 1100 / 1100 Balance 1410 / 710 -1000 / -1000 Lab / Micro Data 09/08/24 05:56 09/08/24 05:56 Labs: Laboratory Results - last 24 hr 09/07/24 16:55: WBC Cancelled, Corrected WBC Cancelled, RBC Cancelled, Hgb Cancelled, Hct Cancelled, MCV Cancelled, MCH Cancelled, MCHC Cancelled, RDW Std Deviation Cancelled, RDW Coeff of Spencer Cancelled, Plt Count Cancelled, MPV Cancelled, Immature Gran % (Auto) Cancelled, Neut % (Auto) Cancelled, Lymph % (Auto) Cancelled, Erie % (Auto) Cancelled, Eos % (Auto) Cancelled, Baso % (Auto)Cancelled, Absolute Neuts (auto) Cancelled, Absolute Lymphs (auto) Cancelled, Total Counted Cancelled, Neutrophils % (Manual) Cancelled, Band Neutrophils % Cancelled, Lymphocytes % (Manual) Cancelled, Monocytes % (Manual) Cancelled, Eosinophils % (Manual) Cancelled, Basophils % (Manual) Cancelled, Metamyelocytes% Cancelled, Myelocytes % Cancelled, Promyelocytes % Cancelled, Blast Cells % Cancelled, Plasma Cell % (Manual) Cancelled, Other Cells % Cancelled, Nucleated RBC % Cancelled, Nucleated RBCs/100 WBC Cancelled, Differential Comment Cancelled, Diff Path Review Cancelled, Hypersegmented Neuts Cancelled, Atypical Lymphocytes Cancelled, Reactive Lymphocytes Cancelled, Smudge Cells Cancelled, Toxic Granulation Cancelled, Toxic Vacuolation Cancelled, Dohle Bodies Cancelled, Truman Rods Cancelled, Platelet Estimate Cancelled, Plt Morphology Comment Cancelled, RBC Morphology Cancelled 09/07/24 16:55: RBC Morphology Cancelled, Polychromasia Cancelled, HypochromasiaCancelled, Basophilic Stippling Cancelled, Anisocytosis Cancelled, Microcytosis Cancelled, Macrocytosis Cancelled, Spherocytes Cancelled, Sickle Cells Cancelled, Target Cells Cancelled, Tear Drop Cells Cancelled, Ovalocytes Cancelled, Stomatocytes Cancelled, Burris-[place] Bodies Cancelled, [place] Cells Cancelled, Bite Cells Cancelled, Crenated Cell Cancelled, Acanthocytes (Spur) Cancelled, Rouleaux Cancelled, Schistocytes Cancelled, Sodium Cancelled, Potassium Cancelled, Chloride Cancelled, Carbon Dioxide Cancelled, Anion Gap Cancelled, BUN Cancelled, Creatinine Cancelled, Estim Creat Clear Calc Cancelled, Est GFR (MDRD) Non-Af Cancelled, BUN/Creatinine Ratio Cancelled, Glucose Cancelled, Calcium Cancelled, Total Bilirubin Cancelled, AST Cancelled, ALT Cancelled, Alkaline Phosphatase Cancelled, Total Protein Cancelled, Albumin Cancelled, Globulin Cancelled, Albumin/Globulin Ratio Cancelled, Lipase Cancelled 09/07/24 17:45: WBC 8.4, RBC 3.82 L, Hgb 10.8 L, Hct 31.8 L, MCV 83.2, MCH 28.3,MCHC 34.0, RDW Std Deviation 40.4, RDW Coeff of Spencer 13.3, Plt Count 235, MPV 9.3, Immature Gran % (Auto) 0.500, Neut % (Auto) 77.8 H, Lymph % (Auto) 14.5 L, Erie % (Auto) 5.0, Eos % (Auto) 1.7, Baso % (Auto) 0.5, Absolute Neuts (auto) 6.6, Absolute Lymphs (auto) 1.22, Nucleated RBC % 0, Sodium 136, Potassium 2.5 L*, Chloride 108, Carbon Dioxide 18.5 L, Anion Gap 9, BUN 17, Creatinine 0.92, Estim Creat Clear Calc 76.05, Est GFR (MDRD) Non-Af 74, BUN/Creatinine Ratio 18.5, Glucose 283 H, Calcium 6.5 L*, Phosphorus 2.5 L, Magnesium 1.2 L, Total Bilirubin 0.40, AST 19, ALT 11, Alkaline Phosphatase 85, Total Protein 4.7 L, Albumin 2.6 L, Globulin 2.1 L, Albumin/Globulin Ratio 1.3, Lipase 28, Blood Type O POSITIVE, Antibody Screen NEGATIVE 09/07/24 19:18: Ionized Calcium 1.08 L 09/07/24 23:18: Sodium 134, Potassium 3.2 L, Chloride 100, Carbon Dioxide 21.1, Anion Gap 13, BUN 16, Creatinine 0.89, Estim Creat Clear Calc 77.55, Est GFR (MDRD) Non-Af 78, BUN/Creatinine Ratio 17.5, Glucose 266 H, Calcium 9.2, Procalcitonin 0.14 H 09/07/24 23:50: POC Glucose 250 H 09/08/24 04:26: POC Glucose 205 H 09/08/24 05:51: Ionized Calcium 1.25 09/08/24 05:56: WBC 8.0, RBC 4.42, Hgb 12.2, Hct 36.8 L, MCV 83.3, MCH 27.6, MCHC 33.2, RDW Std Deviation 40.7, RDW Coeff of Spencer 13.5, Plt Count 275, MPV 9.5, Immature Gran % (Auto) 0.400, Neut % (Auto) 64.6, Lymph % (Auto) 25.7, Erie% (Auto) 6.0, Eos % (Auto) 2.4, Baso % (Auto) 0.9, Absolute Neuts (auto) 5.2, Absolute Lymphs (auto) 2.06, Nucleated RBC % 0, Sodium 136, Potassium 3.1 L, Chloride 105, Carbon Dioxide 20.3 L, Anion Gap 11, BUN 15, Creatinine 0.88, Estim Creat Clear Calc 78.43, Est GFR (MDRD) Non-Af 78, BUN/Creatinine Ratio 16.9, Glucose 203 H, Calcium 8.8, Total Bilirubin 0.65, AST 23, ALT 14, AlkalinePhosphatase 105 H, Total Protein 5.9, Albumin 3.1 L, Globulin 2.7, Albumin/Globulin Ratio 1.2, Vitamin D 25-Hydroxy 14.3 L, TSH 2.460, PTH Intact 28 Radiography Diagnostic Testing: Radiology Impression Abdomen/Pelvis CT 09/07/24 19:48 IMPRESSION: Intraluminal urinary bladder air, please correlate clinically with recent catheterization versus emphysematous cystitis. Most of the bowel loops are underdistended due to lack of oral contrast. No inflammatory changes are demonstrated. 2 cm indeterminate right adrenal mass, recommend MRI for further characterization. Reading [facility] Physical Exam Narrative General: Resting comfortably but wakes up and answers questions HEENT: Atraumatic, normocephalic Eyes: Anicteric, normal conjunctiva, extraocular movements grossly intact Neck: Supple Respiratory: No overt wheezes or rhonchi, normal respiratory effort Cardiovascular: Regular rate and rhythm GI: Soft, no specific tenderness, no rebound, guarding, rigidity nondistended Extremities: No significant pitting edema Musculoskeletal: Moving all extremities Neuro: No overt focal neurological deficits Skin: No rashes appreciated Psych: Superficially cooperative Assessment & Plan Assessment/Plan (1) Intractable nausea and vomiting: PLAN: Plan # Intractable nausea and vomiting -CT abdomen pelvis on admission with possible UTI but no inflammatory changes noted around the bowel - Presently resolved - Patient on IV PPI - Does still have stool studies pending if patient has further diarrhea but thusfar this seems to improved - Will advance diet and assess tolerability # Chronic lower back and leg pain secondary to chronic compression fractures - Supportive care - PT/OT #Possible UTI - CT abdomen queries emphysematous cystitis - Patient with no urinary symptoms, unclear given her recent hospitalization if she ever had to be catheterized as this would potentially explain imaging findings but has had CT scans over the past couple of months which did show similar findings as well - Awaiting UA, pending UA results if they appear suspicious may need empiric coverage but presently patient afebrile and white blood cell count within normallimits with a left shift and no symptoms - Given her history of ESBL would cover with Zosyn # Chronic combined heart failure -Last echo 05/04/2023 showed EF 15% with stage III diastolic dysfunction -Daily weights -I's and O's -Not in acute exacerbation - Patient received multiple medications for her chronic low back pain in addition to her Coreg, Entresto, spironolactone, Lasix and subsequently became hypotensive but completely asymptomatic - Will give very gentle hydration - Decrease Coreg, holding parameters for Entresto, will hold spironolactone and Lasix - Suspect that this is iatrogenic given lack of new complaints, query if patienthas been compliant with medications at home given the effect on her blood pressure here however given her significantly low EF a low blood pressure is to be anticipated - Patient only takes midodrine daily, will schedule this 3 times a day and can decrease as blood pressure tolerates #Type 2 diabetes mellitus -Glucose checks and sliding scale insulin - Patient to start diet so make this ACHS - Also continue 20 units of insulin glargine # History of coronary artery disease -Aspirin, statin, beta-linda #Tobacco use -Advise cessation -Nicotine replacement available if desired # 2 cm indeterminate right adrenal lesion - Will ultimately need further imaging and/for monitoring, this has been noted on scans previous and this can likely be done on an outpatient basis #Hypokalemia -Replace -Repeat in the AM #GERD -Continue PPI #DVT ppx: Lovenox subcu Brenda Posadas, MD Time spent in the patient's overall evaluation,decision-making process, review of diagnostic data, adjustment of management, discussion with other providers, nursing nursing and ancillary staff involved in patient's care documentation, 52Minutes Charges/Coding Visit Charges Inpatient E&M: 77769 Subs Hosp L3 09/08/24 1640 <Electronically signed by Brenda Posadas MD> Cosigner Signature (if applicable): CC: ~ Signed ADDENDUM by Dr. Brenda Posadas MD on 09/08/24 at 1827 Addendum Discussed with patient's RN about obtaining the UA, repeat blood pressure, not yet documented, but verbally reported as a systolic of 88, patient remains asymptomatic 09/08/241826<Electronically signed by Brenda Posadas MD> Cosigner Signature (if applicable): cc: ~* Signed ADDENDUM by Dr. Brenda Posadas MD on 09/08/24 at 1933 Addendum blood pressure initially seemed to improve but remains low, in part likely d/t her low EF and BP meds this AM however given CT findings do not want to delay antibiotics in the event there is infection, discussed multiple times about UA but this has been unable to be obtained at this time, given the prolonged time will order antibiotics empirically, if able to send UA and ucx before these are started that would be ideal but if unable would not delay antbiotic administration 09/08/241932<Electronically signed by Brenda Posadas MD> Cosigner Signature (if applicable): cc: ~* Signed ADDENDUM by Dr. Brenda Posadas MD on 09/08/24 at 1937 Addendum Also added holding parameters to tizanidine and oxycodone and decreased gabapentin. If pt overall stable and no significant infection identified can likely add these back and monitor BP as pt likely tolerates low BP d/t her low EF 09/08/241936<Electronically signed by Brenda Posadas MD> Cosigner Signature (if applicable): cc: ~* Signed [facility] Work Phone: 1(451) 204-811804-07-2025 History and physical note Author Rosaura Crane [facility] Note Date/Time September 07, 2024 10:0 0pm [facility] Medical Records Department [address] [place] [address] H&P Exam - Hospitalist 09/07/242133 MR#: [id number] Acct: [id number] Name: TRENTON JACKSON Rep #:[id number] : 1970 54 From: Rosaura Crane MD PCP: Zohreh Mckeon Gideon, SERVICE DESK DIRECTOR-C Statu s:ADM REHAN Location: [place] [address] HPI - General General Date of Admission: 09/07/24 Date of Service: 09/07/24 Chief Complaint: Intractable N/V, loose stools. HPI Narrative The patient is a 54 y/o F w/ PMHx: GWYN, Poorly controlled Diabetes mellitus typeII, Chronic hypotension, HTN, HLD, Orthostatic hypotension on midodrine, [place], GERD, PAD s/p peripheral PCI, L3-L5 compression fracture with intractable pain with left lower extremity radiculopathy in addition to PAD associated ischemic pain, HFrEF, Anxiety and Depression, recent admission 08/26/24-09/02/2024 with left lower extremity intractable pain secondary to compression fractures inthe L3-L5 region in addition to peripheral arterial disease with history of peripheral PCI to the left lower extremity in addition to significant diarrhea which resolved who re- presents to the [facility] ED on 09/07/24 with history of intractable nausea and emesis persisting over the last 5 days and not improving utilizing Zofran at home however it has not been significantly effective unable to take her chronic pain medication although she then reports to ED physician that she may be out of her medication with no associated abdominal pain althoughin the ED exam with generalized discomfort with palpation with last bowel movement the day prior noted to be normal but given ongoing prompted ED evaluation. Workup in the ED included T97.4, heart rate 111, BP 120/76, respiratory rate 22, 97% on room air with most recent repeat vitals heart rate 101, BP 143/79, respiratory rate 14, 99% on room air, CBC with WBC 8.4, he 1 10.8, MCV 83.2, platelet 235 without marked shift, CMP with potassium 2.5 with noted hemolysis also present, CO2 18.5, BUN/creatinine 17/0.92, GFR 74, glucose 283, calcium 6.5, hepatic profile not marked appearing, CT abdomen and pelvis with intraluminal urinary bladder air possibly secondary to recent catheterization versus emphysematous cystitis, bowel loops under distended due to lack of oral contrast with no inflammatory changes demonstrated, 2 cm indeterminate right adrenal mass. In the ED patient administered 1 L normal saline, calcium gluconate 1 g IV x 1. UA ordered but not obtained upon requested evaluation of patient. [facility] Medical History L5 vertebral fracture ESBL (extended spectrum beta-lactamase) producing bacteria infection Generalized weakness Candidiasis of breast Colitis Debility PTSD (post-traumatic stress disorder) Closed compression fracture of L3 vertebra Hypokalemia Colitis BiPAP (biphasic positive airway pressure) dependence Coronary artery disease On home oxygen therapy Rheumatoid arthritis Sleep apnea Smoker DVT (deep venous thrombosis) Seizures Amputation toe Psychiatric disorder Ischemic cardiomyopathy Diabetes type 2, uncontrolled Essential hypertension Substance abuse Alcohol abuse Depression Osteoporosis GERD (gastroesophageal reflux disease) Pulmonary embolism Myocardial infarct Pericardial effusion Hypoxemia Acute dyspnea Aftercare following surgery of the circulatory system Hx of fracture of humerus Toe amputee Hyperlipidemia CHF (congestive heart failure) CAD (coronary artery disease), rincon coronary artery Home Medications ?Medication ?Instructions ?Recorded ?Last Taken ?Type aspirin 81 mg capsule 81 mg PO DAILY heart health 08/10/22 02/01/23 History clopidogrel 75 mg tablet 75 mg PO DAILY anti platelet #30 02/03/23 02/13/24 10:00 Rx tabs 75 mg pantoprazole 40 mg tablet,delayed 40 mg PO DAILY reflu x 04/18/23 02/13/24 10:00 History release 40 mg sacubitril 24 mg-valsartan 26 mg 1 tab PO BID . 30 day s #60 tabs 05/07/23 02/13/24 22:00 Rx tablet (Entresto) 1 TAB atorvastatin 80 mg tablet 80 mg PO QHS cholesterol Unknown History gabapentin 300 mg capsule 300 mg PO TID nerve pain 02/13/24 08:00 History 300 mg insulin lispro 100 unit/mL 1 sliding scale dose subcut TIDCM 12/29/23 Unknown History subcutaneous half-unit pen glucose DIC 2%/RINKU 6%/LIDOC 2% IN 1 - 2 pump subdermal Q6H MN N FOR 02/14/24 Unknown History saltsable FEET cholecalciferol (vitamin D3) 1,250 1,250 mcg PO WE sup plement 02/14/24 Unknown History mcg (50,000 unit) tablet spironolactone 25 mg tablet 25 mg PO DAILY water pill 30 days 02/17/24 02/13/24 10:00 Rx #0 tabs 12.5 mg carvedilol 3.125 mg tablet 6.25 mg (2 x 3.125 mg) PO B ID 02/19/24 Unknown Rx blood pressure 30 days #0 tabs ergocalciferol (vitamin D2) 1,250 1,250 mcg PO We@1000 #0 caps 02/19/24 Unknown Rx mcg (50,000 unit) capsule (Vitamin D2) insulin glargine 100 unit/mL (3 20 unit (0.2 mL) subcu t QPM 30 02/19/24 02/13/24 22:00 Rx mL) subcutaneous pen (Lantus days #0 mL 24 units Solostar U-100 Insulin) escitalopram oxalate 20 mg tablet 20 mg PO DAILY depre ssion 06/29/24 Unknown History furosemide 20 mg tablet 20 mg PO DAILY water pill Unknown History midodrine 2.5 mg tablet 2.5 mg PO PRN blood pressure 06/29/24 Unknown History polyethylene glycol 3350 17 17 g PO BID PRN constipati on 06/29/24 Unknown History gram/dose oral powder (Miralax) sennosides 8.6 mg-docusate sodium 2 tab PO BID PRN con stipation 06/29/24 Unknown History 50 mg tablet (Stimulant Laxative Plus) tizanidine 4 mg tablet 4 mg PO 3XD spasm 06/29/24 U nknown History acetaminophen 500 mg tablet 1,000 mg (2 x 500 mg) PO Q 8 #0 tabs 09/02/24 Unknown Rx ondansetron 4 mg disintegrating 4 mg PO Q8H PRN PRN Na usea #10 tabs 09/05/24 Unknown Rx tablet Allergy/AdvReac Type Severity Reaction Status Date / Time latex Allergy Hives Verified 09/07/24 15:51 Family History Mother Thyroid disorder Diabetes Hypertension Grandmother Diabetes Uncle Diabetes Aunt Diabetes Other Heart disease Surgical History History of cholecystectomy History of appendectomy History of cholecystectomy Social History household members: spouse and children housing: house Smoking Status: Current every day smoker tobacco type: cigarettes alcohol intake: never substance use type: marijuana what type of physical activity do you participate in: none do you feel safe at home: Yes ROS ROS Narrative Admission Review of Systems: CONSTITUTIONAL: No weight loss, fever, chills, + weakness or fatigue. HEENT: Eyes: No visual loss, blurred vision, double vision or yellow sclerae. Ears, Nose, Throat: No hearing loss, sneezing, congestion, runny nose or sore throat. SKIN: No rash or itching, lesions, wounds except occasional + stage ecchymoses. CARDIOVASCULAR: No chest pain, chest pressure or chest discomfort, palpitations,edema, orthopnea, syncopal events. RESPIRATORY: No shortness of breath, cough or sputum, wheezing, hemoptysis. GASTROINTESTINAL: + anorexia, nausea, vomiting, diarrhea, denied abdominal pain but diffuse discomfort on palpation of the abdomen. No melena, BRBPR. GENITOURINARY: No dysuria, frequency, urgency or retention. NEUROLOGICAL: No headache, dizziness, syncope, paralysis, ataxia, numbness or tingling in the extremities, focal weakness, change in bowel or bladder control,seizure. MUSCULOSKELETAL: + muscle, back pain, joint pain or stiffness. HEMATOLOGIC: + Chronic anemia, easy bleeding/bruising. LYMPHATICS: No enlarged nodes. No history of splenectomy. PSYCHIATRIC: + History anxiety and depression. ENDOCRINOLOGIC: No reports of sweating, cold or heat intolerance. No polyuria orpolydipsia. ALLERGIES: + History of hives. Vital Signs Vital Signs Vital Signs: 09/07/24 15:52 09/07/24 17:30 09/07/24 17:54 Temperature 97.4 F L Temperature Source Oral Pulse Rate 111 H 105 H 105 H Respiratory Rate 22 H 16 12 Blood Pressure 120/76 127/66 H Blood Pressure Mean 90 83 Pulse Ox 97 96 99 Oxygen Delivery Method Room Air 09/07/24 19:00 09/07/24 20:00 09/07/24 21:00 Temperature Temperature Source Pulse Rate 109 H 106 H 101 H Respiratory Rate 12 14 10 L Blood Pressure 144/82 H 120/70 143/79 H Blood Pressure Mean 102 87 99 Pulse Ox 99 99 Oxygen Delivery Method Weight Weight: 171 lb 11.841 oz Body Mass Index (BMI) 26.9 Physical Exam Narrative Physical Examination: General: Awake, alert, oriented x 3 and cooperative, laying in ED bed, notes mildly improved following ED medications, fatigued Skin: Normal color, normal turgor, no icterus, no cyanosis except occasional stage ecchymoses. HEENT: AT/NC, EOMI, PERRLA, moderately dry MM, no carotid bruits or JVD noted. Lungs: Mildly diminished, greater bases, appropriate effort, no rales, ronchi orwheezing. Heart: Mildly tachycardic with regular rhythm; no gallop, rub audible. Abdomen: Soft, generalized discomfort with palpation of the abdomen with no rebound or guarding, hyperactive bowel sounds, no obvious distention, no obviousdiscerned HSM. Extremities: No cyanosis, clubbing, or edema. Neurological: Patient awake, alert, oriented as noted, cognitive function intact; pupils equally reactive to light and accommodation, cranial nerves grossnormal, moving all 4 extremities, no focal deficits, strength severely globally decreased secondary to acute presentation complaints Psychiatric: Affect appears flat, fatigued, no acute evidence of depressive or anxiety feelings but does have underlying history. Results Lab / Micro Data 09/07/24 17:45 09/07/24 17:45 Labs: Laboratory Results - last 24 hr 09/07/24 16:55: WBC Cancelled, Corrected WBC Cancelled, RBC Cancelled, Hgb Cancelled, Hct Cancelled, MCV Cancelled, MCH Cancelled, MCHC Cancelled, RDW Std Deviation Cancelled, RDW Coeff of Spencer Cancelled, Plt Count Cancelled, MPV Cancelled, Immature Gran % (Auto) Cancelled, Neut % (Auto) Cancelled, Lymph % (Auto) Cancelled, [place]rie % (Auto) Cancelled, Eos % (Auto) Cancelled, Baso % (Auto)Cancelled, Absolute Neuts (auto) Cancelled, Absolute Lymphs (auto) Cancelled, Total Counted Cancelled, Neutrophils % (Manual) Cancelled, Band Neutrophils % Cancelled, Lymphocytes % (Manual) Cancelled, Monocytes % (Manual) Cancelled, Eosinophils % (Manual) Cancelled, Basophils % (Manual) Cancelled, Metamyelocytes% Cancelled, Myelocytes % Cancelled, Promyelocytes % Cancelled, Blast Cells % Cancelled, Plasma Cell % (Manual) Cancelled, Other Cells % Cancelled, Nucleated RBC % Cancelled, Nucleated RBCs/100 WBC Cancelled, Differential Comment Cancelled, Diff Path Review Cancelled, Hypersegmented Neuts Cancelled, Atypical Lymphocytes Cancelled, Reactive Lymphocytes Cancelled, Smudge Cells Cancelled, Toxic Granulation Cancelled, Toxic Vacuolation Cancelled, Dohle Bodies Cancelled, Truman Rods Cancelled, Platelet Estimate Cancelled, Plt Morphology Comment Cancelled, RBC Morphology Cancelled 09/07/24 16:55: RBC Morphology Cancelled, Polychromasia Cancelled, HypochromasiaCancelled, Basophilic Stippling Cancelled, Anisocytosis Cancelled, Microcytosis Cancelled, Macrocytosis Cancelled, Spherocytes Cancelled, Sickle Cells Cancelled, Target Cells Cancelled, Tear Drop Cells Cancelled, Ovalocytes Cancelled, Stomatocytes Cancelled, Burris-[place] Bodies Cancelled, [place] Cells Cancelled, Bite Cells Cancelled, Crenated Cell Cancelled, Acanthocytes (Spur) Cancelled, Rouleaux Cancelled, Schistocytes Cancelled, Sodium Cancelled, Potassium Cancelled, Chloride Cancelled, Carbon Dioxide Cancelled, Anion Gap Cancelled, BUN Cancelled, Creatinine Cancelled, Estim Creat Clear Calc Cancelled, Est GFR (MDRD) Non-Af Cancelled, BUN/Creatinine Ratio Cancelled, Glucose Cancelled, Calcium Cancelled, Total Bilirubin Cancelled, AST Cancelled, ALT Cancelled, Alkaline Phosphatase Cancelled, Total Protein Cancelled, Albumin Cancelled, Globulin Cancelled, Albumin/Globulin Ratio Cancelled, Lipase Cancelled 09/07/24 17:45: WBC 8.4, RBC 3.82 L, Hgb 10.8 L, Hct 31.8 L, MCV 83.2, MCH 28.3,MCHC 34.0, RDW Std Deviation 40.4, RDW Coeff of Spencer 13.3, Plt Count 235, MPV 9.3, Immature Gran % (Auto) 0.500, Neut % (Auto) 77.8 H, Lymph % (Auto) 14.5 L, Erie % (Auto) 5.0, Eos % (Auto) 1.7, Baso % (Auto) 0.5, Absolute Neuts (auto) 6.6, Absolute Lymphs (auto) 1.22, Nucleated RBC % 0, Sodium 136, Potassium 2.5 L*, Chloride 108, Carbon Dioxide 18.5 L, Anion Gap 9, BUN 17, Creatinine 0.92, Estim Creat Clear Calc 76.05, Est GFR (MDRD) Non-Af 74, BUN/Creatinine Ratio 18.5, Glucose 283 H, Calcium 6.5 L*, Total Bilirubin 0.40, AST 19, ALT 11, Alkaline Phosphatase 85, Total Protein 4.7 L, Albumin 2.6 L, Globulin 2.1 L, Albumin/Globulin Ratio 1.3, Lipase 28, Blood Type O POSITIVE, Antibody Screen NEGATIVE Imaging Radiology Impression Abdomen/Pelvis CT 09/07/24 19:48 IMPRESSION: Intraluminal urinary bladder air, please correlate clinically with recent catheterization versus emphysematous cystitis. Most of the bowel loops are underdistended due to lack of oral contrast. No inflammatory changes are demonstrated. 2 cm indeterminate right adrenal mass, recommend MRI for further characterization. Reading Location: [facility] Assessment & Plan Assessment/Plan (1) Intractable nausea and vomiting: PLAN: Plan The patient is a 54 y/o F w/ PMHx: GWYN, Poorly controlled Diabetes mellitus typeII, Chronic hypotension, HTN, HLD, Orthostatic hypotension on midodrine, [place], GERD, PAD s/p peripheral PCI, L3-L5 compression fracture with intractable pain with left lower extremity radiculopathy in addition to PAD associated ischemic pain, HFrEF, Anxiety and Depression, recent admission 08/26/24-09/02/2024 with left lower extremity intractable pain secondary to compression fractures inthe L3-L5 region in addition to peripheral arterial disease with history of peripheral PCI to the left lower extremity in addition to significant diarrhea which resolved who re- presents to the [facility] ED on 09/07/24 with history of intractable nausea and emesis persisting over the last 5 days and not improving utilizing Zofran at home however it has not been significantly effective unable to take her chronic pain medication although she then reports to ED physician that she may be out of her medication with no associated abdominal pain with last bowel movement the day prior noted to be normal but given ongoing prompted ED evaluation. #1. Intractable nausea and emesis, loose stools which unfortunately is chronic for patient, questionable gastroenteritis: Will admit to PCU given electrolyte disturbances as noted, continue judicious hydration, will request C. difficile and enteric if recurrent diarrhea, administered significant regimen in the ED including Haldol thus hopefully this will assist with intractable nausea and emesis, on oral regimen schedule outpatient but may consider transition to IV given current presentation for the next 24 hours to assist with intractable nausea/emesis, will have other as needed antiemetic regimen, maintain on fall precautions, continue electrolyte correction as noted, awaiting urinalysis to make sure that patient does not have a UTI but she has no urinary symptoms at this time. PT/OT/case management consulted for discharge planning. #2. CT noted Possible emphysematous cystitis: Patient with no urinary bladder complaints, UA is pending upon request evaluation of patient, last urine culture08/01/2024 with ESBL E. coli of note greater than 100,000, will await urinalysis and if concerning appearing will initiate regimen. Procalcitonin requested. #3. Hypocalcemia, Unclear etiology: Admission calcium 6.5, calcium gluconate 1 g IV x 1 administered in the ED, will obtain ionized calcium, obtain vitamin D level (25-(OH)D, 1,25-(OH)2D), PTH, Mag, Phos, UCa levels to further assess. #4. Hypokalemia: Admission K+ 2.5, magnesium level requested, supplementation given, repeat level in AM. Hemolysis also noted thus likely even further decreased, will give an additional 20 mill equivalents is 40 mill equivalents given in the ED. #5. Right adrenal mass: CT scan with a 2 cm indeterminate right adrenal mass, will need follow-up further imaging outpatient. #6. Questionable Acute on Chronic normocytic anemia: Admission hemoglobin 10.8,MCV 83.2, hemoglobin 14 and 09/05/2024 hemoglobin 15.1, however prior to this baseline primarily 10-11 thus uncertain if these 2 in the intermediate section or falsely elevated, we will continue to trend to further elucidate. #7. Recent acute intractable left lower extremity pain secondary to PAD and lumbar compression fracture with radiculopathy: Recent admission with discharge 09/02/2024 with workup during presentation with L3-L5 compression fracture felt contributing in addition to chronic PAD with CTA with runoff with severe diseasehowever vascular surgery felt likely not the primary etiology is decent flow on evaluation purportedly and although ABIs abnormal not significantly impaired to need acute intervention per vascular surgery report status post previous PCI to the left lower extremity, continue aspirin, Plavix, statin, hypertensive regimen, oxycodone, gabapentin with adjustments as needed. #8. Hypertension: Continue home regimen including Entresto, spironolactone, Coreg, Lasix with hold parameters as needed, PRN hydralazine. #9. Hyperlipidemia: We will continue patient on statin therapy. #10. Orthostatic hypotension: Noted history, on low-dose midodrine noted to only be as needed but will clarify to be certain. #11. Chronic Kidney Disease Stage II versus stage III per GFR trending, tends to vacillate this uncertain: Admission BUN/Cr 17/0.92, GFR 74, baseline renal function 0.6-0.9, repeat BMP in AM. #12. HFrEF: 09/02/2024 echo with LVEF 30%, normal LV size, regional wall motion abnormalities, LV systolic function improved from previous. Given history will very judiciously hydrate only if necessary, continue aspirin, Plavix, statin, Entresto, Coreg, spironolactone, Lasix home regimen. Monitor daily weights. #13. Poorly controlled diabetes mellitus type II with chronic neuropathy: Recent hemoglobin A1c 02/15/2024 9.8%, hold oral home regimen, continue home insulin regimen, clears until improving, accu checks w/ ISS, continue home gabapentin regimen. #14. Anxiety and depression: Will continue patient home Haldol, escitalopram home regimen. #15. Tobacco Abuse: Encouraged cessation, inpatient consultation per RT, NR if desired. #16. GERD with history of esophagitis: Will continue PPI temporally transition to IV PPI given intractable nausea and emesis until improving. Patient has per last admission plan follow-up with GI outpatient for follow-up EGD and colonoscopy once clinically appropriate. #17. GWYN: Will hold PAP therapy given N/V, may add once resolved. #18. DVT prophylaxis: Lovenox. #19. CODE status: Patient HCPOA and living will are not in place but she notes her mother and daughter would be her medical decision makers if necessary. Discussed CODE status at length including difference between FULL code, DNR-CCA and DNR-CC status. Following discussions about the differences in these status, requested Full Code status. Advanced Care Planning Face to Face Time: 16 minutes. Charges/Coding Visit Charges Inpatient E&M: 49272 Init Hosp L3 Procedures Hospitalists Procedures: 13952 Advncd Care Plan 30 Min 09/07/24 2200 <Electronically signed by Rosaura Crane MD> Cosigner Signature (if applicable): CC: RUTH SERVICE DESK DIRECTOR-C Zohreh Mckeon; Dr. Rosaura Crane MD~ Signed [facility] Work Phone: [phone]) 275-126804-06-2025 Discharge summary [facility] Note Date/Time September 07, 2024 9:32 pm [facility] Medical Records Department [address] [place] [address] Emergency Department Summary 09/07/24 MR#: [id number] Acct: [id number] Name: TRENTON JACKSON Rep #:[id number] : 1970 54 From: Davis Gibson PCP: RUTH Lawrence, SERVICE DESK DIRECTOR-C Statu s:REG ER Location: ED HPI History of Present Illness Chief Complaint: Nausea/Vomiting PFSH PFSH Medical History L5 vertebral fracture ESBL (extended spectrum beta-lactamase) producing bacteria infection Generalized weakness Candidiasis of breast Colitis Debility PTSD (post-traumatic stress disorder) Closed compression fracture of L3 vertebra Hypokalemia Colitis BiPAP (biphasic positive airway pressure) dependence Coronary artery disease On home oxygen therapy Rheumatoid arthritis Sleep apnea Smoker DVT (deep venous thrombosis) Seizures Amputation toe Psychiatric disorder Ischemic cardiomyopathy Diabetes type 2, uncontrolled Essential hypertension Substance abuse Alcohol abuse Depression Osteoporosis GERD (gastroesophageal reflux disease) Pulmonary embolism Myocardial infarct Pericardial effusion Hypoxemia Acute dyspnea Aftercare following surgery of the circulatory system Hx of fracture of humerus Toe amputee Hyperlipidemia CHF (congestive heart failure) CAD (coronary artery disease), rincon coronary artery Home Medications ?Medication ?Instructions ?Recorded ?Last Taken ?Type aspirin 81 mg capsule 81 mg PO DAILY heart health 08/10/22 02/01/23 History clopidogrel 75 mg tablet 75 mg PO DAILY anti platelet #30 02/03/23 02/13/24 10:00 Rx tabs 75 mg pantoprazole 40 mg tablet,delayed 40 mg PO DAILY reflu x 04/18/23 02/13/24 10:00 History release 40 mg sacubitril 24 mg-valsartan 26 mg 1 tab PO BID . 30 day s #60 tabs 05/07/23 02/13/24 22:00 Rx tablet (Entresto) 1 TAB atorvastatin 80 mg tablet 80 mg PO QHS cholesterol Unknown History gabapentin 300 mg capsule 300 mg PO TID nerve pain 02/13/24 08:00 History 300 mg insulin lispro 100 unit/mL 1 sliding scale dose subcut TIDCM 12/29/23 Unknown History subcutaneous half-unit pen glucose DIC 2%/RINKU 6%/LIDOC 2% IN 1 - 2 pump subdermal Q6H MN N FOR 02/14/24 Unknown History saltsable FEET cholecalciferol (vitamin D3) 1,250 1,250 mcg PO WE sup plement 02/14/24 Unknown History mcg (50,000 unit) tablet spironolactone 25 mg tablet 25 mg PO DAILY water pill 30 days 02/17/24 02/13/24 10:00 Rx #0 tabs 12.5 mg carvedilol 3.125 mg tablet 6.25 mg (2 x 3.125 mg) PO B ID 02/19/24 Unknown Rx blood pressure 30 days #0 tabs ergocalciferol (vitamin D2) 1,250 1,250 mcg PO We@1000 #0 caps 02/19/24 Unknown Rx mcg (50,000 unit) capsule (Vitamin D2) insulin glargine 100 unit/mL (3 20 unit (0.2 mL) subcu t QPM 30 02/19/24 02/13/24 22:00 Rx mL) subcutaneous pen (Lantus days #0 mL 24 units Solostar U-100 Insulin) escitalopram oxalate 20 mg tablet 20 mg PO DAILY depre ssion 06/29/24 Unknown History furosemide 20 mg tablet 20 mg PO DAILY water pill Unknown History midodrine 2.5 mg tablet 2.5 mg PO PRN blood pressure 06/29/24 Unknown History polyethylene glycol 3350 17 17 g PO BID PRN constipati on 06/29/24 Unknown History gram/dose oral powder (Miralax) sennosides 8.6 mg-docusate sodium 2 tab PO BID PRN con stipation 06/29/24 Unknown History 50 mg tablet (Stimulant Laxative Plus) tizanidine 4 mg tablet 4 mg PO 3XD spasm 06/29/24 U nknown History acetaminophen 500 mg tablet 1,000 mg (2 x 500 mg) PO Q 8 #0 tabs 09/02/24 Unknown Rx ondansetron 4 mg disintegrating 4 mg PO Q8H PRN PRN Na usea #10 tabs 09/05/24 Unknown Rx tablet Allergy/AdvReac Type Severity Reaction Status Date / Time latex Allergy Hives Verified 09/07/24 15:51 Family History Mother Thyroid disorder Diabetes Hypertension Grandmother Diabetes Uncle Diabetes Aunt Diabetes Other Heart disease Surgical History History of cholecystectomy History of appendectomy History of cholecystectomy Social History household members: spouse and children housing: house Smoking Status: Current every day smoker tobacco type: cigarettes alcohol intake: never substance use type: marijuana what type of physical activity do you participate in: none do you feel safe at home: Yes EXAM Physical Exam Const Vital Signs: 09/07/24 15:52 09/07/24 17:30 09/07/24 17:54 Temperature 97.4 F L Temperature Source Oral Pulse Rate 111 H 105 H 105 H Respiratory Rate 22 H 16 12 Blood Pressure 120/76 127/66 H Blood Pressure Mean 90 83 Pulse Ox 97 96 99 Oxygen Delivery Method Room Air 09/07/24 19:00 09/07/24 20:00 09/07/24 21:00 Temperature Temperature Source Pulse Rate 109 H 106 H 101 H Respiratory Rate 12 14 10 L Blood Pressure 144/82 H 120/70 143/79 H Blood Pressure Mean 102 87 99 Pulse Ox 99 99 Oxygen Delivery Method MDM MDM MDM Narrative Medical decision making narrative: HISTORY OF PRESENT ILLNESS: Chief complaint: Nausea vomiting 54-year-old female history of chronic back pain, sciatica, lumbar radiculopathy,type 2 diabetes, CAD, hypertension presents with concern for nausea and vomiting. She states for past 5 days she has had nausea and vomiting and she is unable to take her prescribed Oxy. She notes she has Zofran but is not working. She complains of chronic back pain and feet numbness. States has been ongoing for 6 months. States is been worse because she has been out of her pain meds. She denies ada abdominal pain. Denies blood or green discoloration of her vomitus. Last bowel was yesterday. REVIEW OF SYSTEMS: Pertinent positives: Nausea vomiting, chronic back pain Pertinent negatives: Headache, chest pain, abdominal pain, syncope PHYSICAL EXAM: Nursing triage notes reviewed, Vital signs reviewed Constitutional: please see mdm HENT: MMM Eyes: Pupils equal round and reactive to light, Extraocular muscles intact Neck: No stridor, no JVD, full neck ROM Lungs: Clear to auscultation, No wheezing or rales. No increased work of breathing, no conversational dyspnea, no accessory muscle use, no nasal flaring. No respiratory distress noted Heart: Regular rate and rhythm, No murmurs, No rubs and No gallops, 2+ distal pulses (radial, femoral, posterior tibial) in all extremities Abdomen: Soft, there is no tenderness, rigidity, rebound or guarding, no obviousperitoneal signs, no palpable pulsatile abdominal masses, no auscultated abdominal bruit : No CVAT Extremities: No edema Neuro: Intact sensation L1-S1 dermatomal distributions. Intact 5/5 strength in hip flexion (T12-L3). Knee extension (L2-L4). Ankle dorsiflexion (L4-L5). Ankle plantar flexion (S1). Great toe extension (L5). 2+ patellar and AchillesDTRs. Skin: No rash or lesions noted MEDICAL DECISION MAKING: Chief Complaint: please see HPI External records reviewed: Reviewed recent MRI of the back MRI of the back from August 27, 2024 showed IMPRESSION: 1. Chronic posttraumatic and degenerative changes as described. 2. Multilevel lumbar degenerative disc disease is noted. Reviewed recent hospitalization from August 26, 2024 until September 02, 2024. Duringhis hospitalization the patient was treated for intractable left leg pain that was thought to be secondary to radiculopathy, peripheral artery disease, type 2 diabetes, CHF, Factors affecting care: none Social determinants of health: none History obtained from others: none Consults: none [facility] Narrative: The patient was initially tachycardic, tachypneic and afebrile nontoxic- appearing. Abdomen soft nontender. Lower extremities had intact sensation and movement. I considered the following differential diagnosis: Dehydration, electro disturbance, acute pancreatitis, DKA, I obtained a broad lab workup to further elucidate etiology of the patient's complaints. I considered obtaining a CT scan of the abdomen pelvis given nauseavomiting however the patient did not complain of abdominal pain and abdominal exam was benign. Not consistent with an acute surgical emergency the abdomen orpelvis. I initially resuscitated the patient with IV fluids, Reglan and morphine. I obtained labs to evaluate signs of significant dehydration electrolyte abnormality or acute pancreatitis. ALL IMAGES (IF OBTAINED) HAVE BEEN PERSONALLY REVIEWED AND INTERPRETED BY MYSELF. Initial CBC showed severe anemia that did not seem possible given she had labs done last 2 days which showed a normal hemoglobin. CBC was repeated and showed no leukocytosis, mild anemia and no abdominal cytopenia BMP with severe hypokalemia to 2.5 however this was hemolyzed was likely lower, there is metabolic acidosis as well as hypocalcemia will send for ionized calcium and replace potassium and calcium deficiencies with p.o. and IV formulations. LFTs show no evidence of hepatobiliary pathology. Lipase is wnl indicating no pancreatic inflammation. CT scan abdomen pelvis shows no evidence of obvious surgical pathology EKG with a normal sinus rhythm rate 100, left ax deviation, prolonged QT interval at 482, no STEMI During the patient's ED course she received IV Reglan, Phenergan. She continuedto have intractable nausea and vomiting. Given intractable nausea vomiting signs of significant electrolyte disturbances and deficiencies she was admitted to telemetry to undergo further nausea control and electrolyte replacement. The patient and/or family, caregivers express understanding. The patient and/orfamily, caregivers agrees with the plan. Shared decision making: I will have a discussion with the patient and or visitors regarding risk/benefits of further testing or admission. They will be made aware of of the risk/benefits inherent in this decision they will be given the opportunity to voice understanding. Total critical care time today provided was at least 0 minutes. This excludes separately billable procedures. Critical care time (if documented) is secondary to the patient having high probability of clinically significant/life threatening deterioration in the patient's condition which required my urgent intervention. Impression: 1. Nausea vomiting 2. Chronic back pain 3. Lumbar radiculopathy Dispo: admit to PCU oBS This note was generated with Haversackation software. It may contain incorrectwords, spelling, and punctuation that were not noted in review of the chart prior to signing. Lab Data Labs: Laboratory Results - last 24 hr 09/07/24 09/07/24 09/07/24 16:55 16:55 17:45 WBC Cancelled 8.4 Corrected WBC Cancelled RBC Cancelled 3.82 L Hgb Cancelled 10.8 L Hct Cancelled 31.8 L MCV Cancelled 83.2 MCH Cancelled 28.3 MCHC Cancelled 34.0 RDW Std Deviation Cancelled 40.4 RDW Coeff of Spencer Cancelled 13.3 Plt Count Cancelled 235 MPV Cancelled 9.3 Immature Gran % (Auto) Cancelled 0.500 Neut % (Auto) Cancelled 77.8 H Lymph % (Auto) Cancelled 14.5 L Erie % (Auto) Cancelled 5.0 Eos % (Auto) Cancelled 1.7 Baso % (Auto) Cancelled 0.5 Absolute Neuts (auto) Cancelled 6.6 Absolute Lymphs (auto) Cancelled 1.22 Total Counted Cancelled Neutrophils % (Manual) Cancelled Band Neutrophils % Cancelled Lymphocytes % (Manual) Cancelled Monocytes % (Manual) Cancelled Eosinophils % (Manual) Cancelled Basophils % (Manual) Cancelled Metamyelocytes % Cancelled Myelocytes % Cancelled Promyelocytes % Cancelled Blast Cells % Cancelled Plasma Cell % (Manual) Cancelled Other Cells % Cancelled Nucleated RBC % Cancelled 0 Nucleated RBCs/100 WBC Cancelled Differential Comment Cancelled Diff Path Review Cancelled Hypersegmented Neuts Cancelled Atypical Lymphocytes Cancelled Reactive Lymphocytes Cancelled Smudge Cells Cancelled Toxic Granulation Cancelled Toxic Vacuolation Cancelled Dohle Bodies Cancelled Truman Rods Cancelled Platelet Estimate Cancelled Plt Morphology Comment Cancelled RBC Morphology Cancelled Cancelled Polychromasia Cancelled Hypochromasia Cancelled Basophilic Stippling Cancelled Anisocytosis Cancelled Microcytosis Cancelled Macrocytosis Cancelled Spherocytes Cancelled Sickle Cells Cancelled Target Cells Cancelled Tear Drop Cells Cancelled Ovalocytes Cancelled Stomatocytes Cancelled Burris-[place] Bodies Cancelled Lore Cells Cancelled Bite Cells Cancelled Crenated Cell Cancelled Acanthocytes (Spur) Cancelled Rouleaux Cancelled Schistocytes Cancelled Sodium Cancelled 136 Potassium Cancelled 2.5 L* Chloride Cancelled 108 Carbon Dioxide Cancelled 18.5 L Anion Gap Cancelled 9 BUN Cancelled 17 Creatinine Cancelled 0.92 Estim Creat Clear Calc Cancelled 76.05 Est GFR (MDRD) Non-Af Cancelled 74 BUN/Creatinine Ratio Cancelled 18.5 Glucose Cancelled 283 H Calcium Cancelled 6.5 L* Total Bilirubin Cancelled 0.40 AST Cancelled 19 ALT Cancelled 11 Alkaline Phosphatase Cancelled 85 Total Protein Cancelled 4.7 L Albumin Cancelled 2.6 L Globulin Cancelled 2.1 L Albumin/Globulin Ratio Cancelled 1.3 Lipase Cancelled 28 Blood Type O POSITIVE Antibody Screen NEGATIVE Radiography Diagnostic Testing: Clinical Impression(s) from Imaging Studies Abdomen/Pelvis CT 09/07/24 19:48 IMPRESSION: Intraluminal urinary bladder air, please correlate clinically with recent catheterization versus emphysematous cystitis. Most of the bowel loops are underdistended due to lack of oral contrast. No inflammatory changes are demonstrated. 2 cm indeterminate right adrenal mass, recommend MRI for further characterization. Reading Location: [facility] Discharge Plan Triage Chief Complaint: Nausea/Vomiting ED Provider: Davis Ibarra Dx/Rx/DC Orders Prescriptions: No Action pantoprazole 40 mg tablet,delayed release (DR/EC) 40 mg PO DAILY aspirin 81 mg Capsule 81 mg PO DAILY clopidogrel 75 mg Tablet 75 mg PO DAILY Qty: 30 0RF Patient Comments: patient stated pretty sure I still take that sacubitril-valsartan [Entresto] 24-26 mg Tablet 1 tab PO BID 30 Days Qty: 60 0RF insulin lispro 100 unit/mL insulin pen, half-unit 1 sliding scale dose subcut TIDCM Patient Comments: patient does not know sliding scale atorvastatin 80 mg tablet 80 mg PO QHS gabapentin 300 mg Capsule 300 mg PO TID tizanidine 4 mg tablet 4 mg PO 3XD midodrine 2.5 mg tablet 2.5 mg PO PRN furosemide 20 mg tablet 20 mg PO DAILY escitalopram oxalate 20 mg tablet 20 mg PO DAILY sennosides-docusate sodium [Stimulant Laxative Plus] 8.6-50 mg Tablet 2 tab PO BID PRN (Reason: constipation) polyethylene glycol 3350 [Miralax] 17 gram/dose powder 17 g PO BID PRN (Reason: constipation) acetaminophen 500 mg Tablet 1,000 mg PO Q8 Qty: 0 0RF cholecalciferol (vitamin D3) 1,250 mcg (50,000 unit) tablet 1,250 mcg PO WE DIC 2%/RINKU 6%/LIDOC 2% IN saltsable cream 1 - 2 pump subdermal Q6H PRN (Reason: FOR FEET) spironolactone 25 mg tablet 25 mg PO DAILY 30 Days Qty: 0 0RF ergocalciferol (vitamin D2) [Vitamin D2] 1,250 mcg (50,000 unit) Capsule 1,250 mcg PO We@1000 Qty: 0 0RF carvedilol 3.125 mg tablet 6.25 mg PO BID 30 Days Qty: 0 0RF Rx Instructions: Hold for heart less than 50 or systolic blood pressure less than 100 mmHg. insulin glargine [Lantus Solostar U-100 Insulin] 100 unit/mL (3 mL) insulin pen 20 unit subcut QPM 30 Days Qty: 0 0RF Rx Instructions: Hold if glucose less than 130 mg/dl ondansetron 4 mg tablet,disintegrating 4 mg PO Q8H PRN PRN (Reason: Nausea) Qty: 10 0RF Primary Care Provider: Zohreh Mckeon Referrals: Zohreh Mckeon, SERVICE DESK DIRECTOR-C [Primary Care Provider] - Print Language: Italian What to do if you have Problems For any increased pain, shortness of breath, bleeding, nausea or vomiting, chestpain, or any unexpected problems, contact your Primary Care Provider. Call [facility] ([phone]) or report to the closest Emergency Room. Call 911 if necessary. 09/07/242131 <Electronically signed by Davis Ibarra DO> Cosigner Signature (if applicable): CC: RUTH SERVICE DESK DIRECTOR-C Zohreh Mckeon ~ Signed [facility] Work Phone: [phone]) 171-210304-06-2025 Radiology Diagnostic study [facility]04-06-2025 Discharge summary Author Davis Ibarra [facility] Note Date/Time September 07, 2024 9:32 pm [facility] Medical Records Department [address] [place] [address] Emergency Department Summary 09/07/24 MR#: [id number] Acct: [id number] Name: TRENTON JACKSON Rep #:[id number] : 1970 54 From: Davis Gibson PCP: RUTH Lawrence, SERVICE DESK DIRECTOR-C Statu s:REG ER Location: ED HPI History of Present Illness Chief Complaint: Nausea/Vomiting [facility] Medical History L5 vertebral fracture ESBL (extended spectrum beta-lactamase) producing bacteria infection Generalized weakness Candidiasis of breast Colitis Debility PTSD (post-traumatic stress disorder) Closed compression fracture of L3 vertebra Hypokalemia Colitis BiPAP (biphasic positive airway pressure) dependence Coronary artery disease On home oxygen therapy Rheumatoid arthritis Sleep apnea Smoker DVT (deep venous thrombosis) Seizures Amputation toe Psychiatric disorder Ischemic cardiomyopathy Diabetes type 2, uncontrolled Essential hypertension Substance abuse Alcohol abuse Depression Osteoporosis GERD (gastroesophageal reflux disease) Pulmonary embolism Myocardial infarct Pericardial effusion Hypoxemia Acute dyspnea Aftercare following surgery of the circulatory system Hx of fracture of humerus Toe amputee Hyperlipidemia CHF (congestive heart failure) CAD (coronary artery disease), rincon coronary artery Home Medications ?Medication ?Instructions ?Recorded ?Last Taken ?Type aspirin 81 mg capsule 81 mg PO DAILY heart health 08/10/22 02/01/23 History clopidogrel 75 mg tablet 75 mg PO DAILY anti platelet #30 02/03/23 02/13/24 10:00 Rx tabs 75 mg pantoprazole 40 mg tablet,delayed 40 mg PO DAILY reflu x 04/18/23 02/13/24 10:00 History release 40 mg sacubitril 24 mg-valsartan 26 mg 1 tab PO BID . 30 day s #60 tabs 05/07/23 02/13/24 22:00 Rx tablet (Entresto) 1 TAB atorvastatin 80 mg tablet 80 mg PO QHS cholesterol Unknown History gabapentin 300 mg capsule 300 mg PO TID nerve pain 02/13/24 08:00 History 300 mg insulin lispro 100 unit/mL 1 sliding scale dose subcut TIDCM 12/29/23 Unknown History subcutaneous half-unit pen glucose DIC 2%/RINKU 6%/LIDOC 2% IN 1 - 2 pump subdermal Q6H MN N FOR 02/14/24 Unknown History saltsable FEET cholecalciferol (vitamin D3) 1,250 1,250 mcg PO WE sup plement 02/14/24 Unknown History mcg (50,000 unit) tablet spironolactone 25 mg tablet 25 mg PO DAILY water pill 30 days 02/17/24 02/13/24 10:00 Rx #0 tabs 12.5 mg carvedilol 3.125 mg tablet 6.25 mg (2 x 3.125 mg) PO B ID 02/19/24 Unknown Rx blood pressure 30 days #0 tabs ergocalciferol (vitamin D2) 1,250 1,250 mcg PO We@1000 #0 caps 02/19/24 Unknown Rx mcg (50,000 unit) capsule (Vitamin D2) insulin glargine 100 unit/mL (3 20 unit (0.2 mL) subcu t QPM 30 02/19/24 02/13/24 22:00 Rx mL) subcutaneous pen (Lantus days #0 mL 24 units Solostar U-100 Insulin) escitalopram oxalate 20 mg tablet 20 mg PO DAILY depre ssion 06/29/24 Unknown History furosemide 20 mg tablet 20 mg PO DAILY water pill Unknown History midodrine 2.5 mg tablet 2.5 mg PO PRN blood pressure 06/29/24 Unknown History polyethylene glycol 3350 17 17 g PO BID PRN constipati on 06/29/24 Unknown History gram/dose oral powder (Miralax) sennosides 8.6 mg-docusate sodium 2 tab PO BID PRN con stipation 06/29/24 Unknown History 50 mg tablet (Stimulant Laxative Plus) tizanidine 4 mg tablet 4 mg PO 3XD spasm 06/29/24 U nknown History acetaminophen 500 mg tablet 1,000 mg (2 x 500 mg) PO Q 8 #0 tabs 09/02/24 Unknown Rx ondansetron 4 mg disintegrating 4 mg PO Q8H PRN PRN Na usea #10 tabs 09/05/24 Unknown Rx tablet Allergy/AdvReac Type Severity Reaction Status Date / Time latex Allergy Hives Verified 09/07/24 15:51 Family History Mother Thyroid disorder Diabetes Hypertension Grandmother Diabetes Uncle Diabetes Aunt Diabetes Other Heart disease Surgical History History of cholecystectomy History of appendectomy History of cholecystectomy Social History household members: spouse and children housing: house Smoking Status: Current every day smoker tobacco type: cigarettes alcohol intake: never substance use type: marijuana what type of physical activity do you participate in: none do you feel safe at home: Yes EXAM Physical Exam Const Vital Signs: 09/07/24 15:52 09/07/24 17:30 09/07/24 17:54 Temperature 97.4 F L Temperature Source Oral Pulse Rate 111 H 105 H 105 H Respiratory Rate 22 H 16 12 Blood Pressure 120/76 127/66 H Blood Pressure Mean 90 83 Pulse Ox 97 96 99 Oxygen Delivery Method Room Air 09/07/24 19:00 09/07/24 20:00 09/07/24 21:00 Temperature Temperature Source Pulse Rate 109 H 106 H 101 H Respiratory Rate 12 14 10 L Blood Pressure 144/82 H 120/70 143/79 H Blood Pressure Mean 102 87 99 Pulse Ox 99 99 Oxygen Delivery Method MDM MDM MDM Narrative Medical decision making narrative: HISTORY OF PRESENT ILLNESS: Chief complaint: Nausea vomiting 54-year-old female history of chronic back pain, sciatica, lumbar radiculopathy,type 2 diabetes, CAD, hypertension presents with concern for nausea and vomiting. She states for past 5 days she has had nausea and vomiting and she is unable to take her prescribed Oxy. She notes she has Zofran but is not working. She complains of chronic back pain and feet numbness. States has been ongoing for 6 months. States is been worse because she has been out of her pain meds. She denies ada abdominal pain. Denies blood or green discoloration of her vomitus. Last bowel was yesterday. REVIEW OF SYSTEMS: Pertinent positives: Nausea vomiting, chronic back pain Pertinent negatives: Headache, chest pain, abdominal pain, syncope PHYSICAL EXAM: Nursing triage notes reviewed, Vital signs reviewed Constitutional: please see mdm HENT: MMM Eyes: Pupils equal round and reactive to light, Extraocular muscles intact Neck: No stridor, no JVD, full neck ROM Lungs: Clear to auscultation, No wheezing or rales. No increased work of breathing, no conversational dyspnea, no accessory muscle use, no nasal flaring. No respiratory distress noted Heart: Regular rate and rhythm, No murmurs, No rubs and No gallops, 2+ distal pulses (radial, femoral, posterior tibial) in all extremities Abdomen: Soft, there is no tenderness, rigidity, rebound or guarding, no obviousperitoneal signs, no palpable pulsatile abdominal masses, no auscultated abdominal bruit : No CVAT Extremities: No edema Neuro: Intact sensation L1-S1 dermatomal distributions. Intact 5/5 strength in hip flexion (T12-L3). Knee extension (L2-L4). Ankle dorsiflexion (L4-L5). Ankle plantar flexion (S1). Great toe extension (L5). 2+ patellar and AchillesDTRs. Skin: No rash or lesions noted MEDICAL DECISION MAKING: Chief Complaint: please see HPI External records reviewed: Reviewed recent MRI of the back MRI of the back from August 27, 2024 showed IMPRESSION: 1. Chronic posttraumatic and degenerative changes as described. 2. Multilevel lumbar degenerative disc disease is noted. Reviewed recent hospitalization from August 26, 2024 until September 02, 2024. Duringhis hospitalization the patient was treated for intractable left leg pain that was thought to be secondary to radiculopathy, peripheral artery disease, type 2 diabetes, CHF, Factors affecting care: none Social determinants of health: none History obtained from others: none Consults: none [facility] Narrative: The patient was initially tachycardic, tachypneic and afebrile nontoxic- appearing. Abdomen soft nontender. Lower extremities had intact sensation and movement. I considered the following differential diagnosis: Dehydration, electro disturbance, acute pancreatitis, DKA, I obtained a broad lab workup to further elucidate etiology of the patient's complaints. I considered obtaining a CT scan of the abdomen pelvis given nauseavomiting however the patient did not complain of abdominal pain and abdominal exam was benign. Not consistent with an acute surgical emergency the abdomen orpelvis. I initially resuscitated the patient with IV fluids, Reglan and morphine. I obtained labs to evaluate signs of significant dehydration electrolyte abnormality or acute pancreatitis. ALL IMAGES (IF OBTAINED) HAVE BEEN PERSONALLY REVIEWED AND INTERPRETED BY MYSELF. Initial CBC showed severe anemia that did not seem possible given she had labs done last 2 days which showed a normal hemoglobin. CBC was repeated and showed no leukocytosis, mild anemia and no abdominal cytopenia BMP with severe hypokalemia to 2.5 however this was hemolyzed was likely lower, there is metabolic acidosis as well as hypocalcemia will send for ionized calcium and replace potassium and calcium deficiencies with p.o. and IV formulations. LFTs show no evidence of hepatobiliary pathology. Lipase is wnl indicating no pancreatic inflammation. CT scan abdomen pelvis shows no evidence of obvious surgical pathology EKG with a normal sinus rhythm rate 100, left ax deviation, prolonged QT interval at 482, no STEMI During the patient's ED course she received IV Reglan, Phenergan. She continuedto have intractable nausea and vomiting. Given intractable nausea vomiting signs of significant electrolyte disturbances and deficiencies she was admitted to telemetry to undergo further nausea control and electrolyte replacement. The patient and/or family, caregivers express understanding. The patient and/orfamily, caregivers agrees with the plan. Shared decision making: I will have a discussion with the patient and or visitors regarding risk/benefits of further testing or admission. They will be made aware of of the risk/benefits inherent in this decision they will be given the opportunity to voice understanding. Total critical care time today provided was at least 0 minutes. This excludes separately billable procedures. Critical care time (if documented) is secondary to the patient having high probability of clinically significant/life threatening deterioration in the patient's condition which required my urgent intervention. Impression: 1. Nausea vomiting 2. Chronic back pain 3. Lumbar radiculopathy Dispo: admit to PCU oBS This note was generated with [employer] dictation software. It may contain incorrectwords, spelling, and punctuation that were not noted in review of the chart prior to signing. Lab Data Labs: Laboratory Results - last 24 hr 09/07/24 09/07/24 09/07/24 16:55 16:55 17:45 WBC Cancelled 8.4 Corrected WBC Cancelled RBC Cancelled 3.82 L Hgb Cancelled 10.8 L Hct Cancelled 31.8 L MCV Cancelled 83.2 MCH Cancelled 28.3 MCHC Cancelled 34.0 RDW Std Deviation Cancelled 40.4 RDW Coeff of Spencer Cancelled 13.3 Plt Count Cancelled 235 MPV Cancelled 9.3 Immature Gran % (Auto) Cancelled 0.500 Neut % (Auto) Cancelled 77.8 H Lymph % (Auto) Cancelled 14.5 L E[place] % (Auto) Cancelled 5.0 Eos % (Auto) Cancelled 1.7 Baso % (Auto) Cancelled 0.5 Absolute Neuts (auto) Cancelled 6.6 Absolute Lymphs (auto) Cancelled 1.22 Total Counted Cancelled Neutrophils % (Manual) Cancelled Band Neutrophils % Cancelled Lymphocytes % (Manual) Cancelled Monocytes % (Manual) Cancelled Eosinophils % (Manual) Cancelled Basophils % (Manual) Cancelled Metamyelocytes % Cancelled Myelocytes % Cancelled Promyelocytes % Cancelled Blast Cells % Cancelled Plasma Cell % (Manual) Cancelled Other Cells % Cancelled Nucleated RBC % Cancelled 0 Nucleated RBCs/100 WBC Cancelled Differential Comment Cancelled Diff Path Review Cancelled Hypersegmented Neuts Cancelled Atypical Lymphocytes Cancelled Reactive Lymphocytes Cancelled Smudge Cells Cancelled Toxic Granulation Cancelled Toxic Vacuolation Cancelled Dohle Bodies Cancelled Truman Rods Cancelled Platelet Estimate Cancelled Plt Morphology Comment Cancelled RBC Morphology Cancelled Cancelled Polychromasia Cancelled Hypochromasia Cancelled Basophilic Stippling Cancelled Anisocytosis Cancelled Microcytosis Cancelled Macrocytosis Cancelled Spherocytes Cancelled Sickle Cells Cancelled Target Cells Cancelled Tear Drop Cells Cancelled Ovalocytes Cancelled Stomatocytes Cancelled Burris-[place] Bodies Cancelled Lore Cells Cancelled Bite Cells Cancelled Crenated Cell Cancelled Acanthocytes (Spur) Cancelled Rouleaux Cancelled Schistocytes Cancelled Sodium Cancelled 136 Potassium Cancelled 2.5 L* Chloride Cancelled 108 Carbon Dioxide Cancelled 18.5 L Anion Gap Cancelled 9 BUN Cancelled 17 Creatinine Cancelled 0.92 Estim Creat Clear Calc Cancelled 76.05 Est GFR (MDRD) Non-Af Cancelled 74 BUN/Creatinine Ratio Cancelled 18.5 Glucose Cancelled 283 H Calcium Cancelled 6.5 L* Total Bilirubin Cancelled 0.40 AST Cancelled 19 ALT Cancelled 11 Alkaline Phosphatase Cancelled 85 Total Protein Cancelled 4.7 L Albumin Cancelled 2.6 L Globulin Cancelled 2.1 L Albumin/Globulin Ratio Cancelled 1.3 Lipase Cancelled 28 Blood Type O POSITIVE Antibody Screen NEGATIVE Radiography Diagnostic Testing: Clinical Impression(s) from Imaging Studies Abdomen/Pelvis CT 09/07/24 19:48 IMPRESSION: Intraluminal urinary bladder air, please correlate clinically with recent catheterization versus emphysematous cystitis. Most of the bowel loops are underdistended due to lack of oral contrast. No inflammatory changes are demonstrated. 2 cm indeterminate right adrenal mass, recommend MRI for further characterization. [facility] T[facility] Chief Complaint: Nausea/Vomiting ED Provider: Davis Ibarra Dx/Rx/DC Orders Prescriptions: No Action pantoprazole 40 mg tablet,delayed release (DR/EC) 40 mg PO DAILY aspirin 81 mg Capsule 81 mg PO DAILY clopidogrel 75 mg Tablet 75 mg PO DAILY Qty: 30 0RF Patient Comments: patient stated pretty sure I still take that sacubitril-valsartan [Entresto] 24-26 mg Tablet 1 tab PO BID 30 Days Qty: 60 0RF insulin lispro 100 unit/mL insulin pen, half-unit 1 sliding scale dose subcut TIDCM Patient Comments: patient does not know sliding scale atorvastatin 80 mg tablet 80 mg PO QHS gabapentin 300 mg Capsule 300 mg PO TID tizanidine 4 mg tablet 4 mg PO 3XD midodrine 2.5 mg tablet 2.5 mg PO PRN furosemide 20 mg tablet 20 mg PO DAILY escitalopram oxalate 20 mg tablet 20 mg PO DAILY sennosides-docusate sodium [Stimulant Laxative Plus] 8.6-50 mg Tablet 2 tab PO BID PRN (Reason: constipation) polyethylene glycol 3350 [Miralax] 17 gram/dose powder 17 g PO BID PRN (Reason: constipation) acetaminophen 500 mg Tablet 1,000 mg PO Q8 Qty: 0 0RF cholecalciferol (vitamin D3) 1,250 mcg (50,000 unit) tablet 1,250 mcg PO WE DIC 2%/RINKU 6%/LIDOC 2% IN saltsable cream 1 - 2 pump subdermal Q6H PRN (Reason: FOR FEET) spironolactone 25 mg tablet 25 mg PO DAILY 30 Days Qty: 0 0RF ergocalciferol (vitamin D2) [Vitamin D2] 1,250 mcg (50,000 unit) Capsule 1,250 mcg PO We@1000 Qty: 0 0RF carvedilol 3.125 mg tablet 6.25 mg PO BID 30 Days Qty: 0 0RF Rx Instructions: Hold for heart less than 50 or systolic blood pressure less than 100 mmHg. insulin glargine [Lantus Solostar U-100 Insulin] 100 unit/mL (3 mL) insulin pen 20 unit subcut QPM 30 Days Qty: 0 0RF Rx Instructions: Hold if glucose less than 130 mg/dl ondansetron 4 mg tablet,disintegrating 4 mg PO Q8H PRN PRN (Reason: Nausea) Qty: 10 0RF Primary Care Provider: Zohreh Mckeon Referrals: Zohreh Mckeon, SERVICE DESK DIRECTOR-C [Primary Care Provider] - Print Language: Italian What to do if you have Problems For any increased pain, shortness of breath, bleeding, nausea or vomiting, chestpain, or any unexpected problems, contact your Primary Care Provider. Call [facility] ([phone]) or report to the closest Emergency Room. Call 911 if necessary. 09/07/242131 <Electronically signed by Davis Ibarra DO> Cosigner Signature (if applicable): CC: RUTH SERVICE DESK DIRECTOR-Gideon Mckeon ~ Signed [facility] Work Phone: [phone] Discharge summary Author Zack Card [facility] Note Date/Time September 05, 2024 3:35 pm [facility] Medical Records Department [address] [place] [address] Emergency Department Summary 09/05/24 MR#: [id number] Acct: [id number] Name: TRENTON JACKSON Rep #:[id number] : 1970 54 From: Zack Han PCP: RUTH Lawrence, GLENN Statu s:REG ER Location: ED HPI History of Present Illness Chief Complaint: Nausea/Vomiting/Diarrhea Informant: patient Narrative Narrative: Brought in by EMS vomiting diarrhea abdominal pain for last 2 days. Discharged from hospital 3 days ago for left leg pain. She states still has pain down her legs from her back. She is unable to take her medications due to vomiting diarrhea. Least 5 emesis per day, 3 diarrheas per day. No hematemesis, melena or hematochezia. Last diarrhea at 3 AM over 6 hours ago, last emesis was half hour prior to calling EMS. Still has her back pain. From review of records stable compression fractures L3 and L5. No urinary symptoms. Allergies to latex. History of cholecystectomy and appendectomy. [facility] Medical History L5 vertebral fracture ESBL (extended spectrum beta-lactamase) producing bacteria infection Generalized weakness Candidiasis of breast Colitis Debility PTSD (post-traumatic stress disorder) Closed compression fracture of L3 vertebra Hypokalemia Colitis BiPAP (biphasic positive airway pressure) dependence Coronary artery disease On home oxygen therapy Rheumatoid arthritis Sleep apnea Smoker DVT (deep venous thrombosis) Seizures Amputation toe Psychiatric disorder Ischemic cardiomyopathy Diabetes type 2, uncontrolled Essential hypertension Substance abuse Alcohol abuse Depression Osteoporosis GERD (gastroesophageal reflux disease) Pulmonary embolism Myocardial infarct Pericardial effusion Hypoxemia Acute dyspnea Aftercare following surgery of the circulatory system Hx of fracture of humerus Toe amputee Hyperlipidemia CHF (congestive heart failure) CAD (coronary artery disease), rincon coronary artery Home Medications ?Medication ?Instructions ?Recorded ?Last Taken ?Type aspirin 81 mg capsule 81 mg PO DAILY heart health 08/10/22 02/01/23 History clopidogrel 75 mg tablet 75 mg PO DAILY anti platelet #30 02/03/23 02/13/24 10:0 0 Rx tabs 75 mg pantoprazole 40 mg tablet,delayed 40 mg PO DAILY reflu x 04/18/23 02/13/24 10:00 History release 40 mg sacubitril 24 mg-valsartan 26 mg 1 tab PO BID . 30 day s #60 tabs 05/07/23 02/13/24 22:00 Rx tablet (Entresto) 1 TAB atorvastatin 80 mg tablet 80 mg PO QHS cholesterol Unknown History gabapentin 300 mg capsule 300 mg PO TID nerve pain 02/13/24 08:00 History 300 mg insulin glargine 100 unit/mL (3 25 unit subcut DAILY d m 12/29/23 02/13/24 07:00 History mL) subcutaneous pen (Lantus 40 units Solostar U-100 Insulin) insulin lispro 100 unit/mL 1 sliding scale dose subcut TIDCM 12/29/23 Unknown History subcutaneous half-unit pen glucose DIC 2%/RINKU 6%/LIDOC 2% IN 1 - 2 pump subdermal Q6H MN N FOR 02/14/24 Unknown History saltsable FEET cholecalciferol (vitamin D3) 1,250 1,250 mcg PO WE sup plement 02/14/24 Unknown History mcg (50,000 unit) tablet spironolactone 25 mg tablet 25 mg PO DAILY water pill 30 days 02/17/24 02/13/24 10:00 Rx #0 tabs 12.5 mg carvedilol 3.125 mg tablet 6.25 mg (2 x 3.125 mg) PO B ID 02/19/24 Unknown Rx blood pressure 30 days #0 tabs ergocalciferol (vitamin D2) 1,250 1,250 mcg PO We@1000 #0 caps 02/19/24 Unknown Rx mcg (50,000 unit) capsule (Vitamin D2) insulin glargine 100 unit/mL (3 20 unit (0.2 mL) subcu t QPM 30 02/19/24 02/13/24 22:00 Rx mL) subcutaneous pen (Lant days #0 mL 24 units Solostar U-100 Insulin) escitalopram oxalate 20 mg tablet 20 mg PO DAILY depre ssion 06/29/24 Unknown History furosemide 20 mg tablet 20 mg PO DAILY water pill Unknown History midodrine 2.5 mg tablet 2.5 mg PO PRN blood pressure 06/29/24 Unknown History polyethylene glycol 3350 17 17 g PO BID PRN constipati on 06/29/24 Unknown History gram/dose oral powder (Miralax) sennosides 8.6 mg-docusate sodium 2 tab PO BID PRN con stipation 06/29/24 Unknown History 50 mg tablet (Stimulant Laxative Plus) tizanidine 4 mg tablet 4 mg PO 3XD spasm 06/29/24 U nknown History ondansetron HCl 4 mg tablet 4 mg PO Q8H nausea #10 tab s 08/01/24 Unknown Rx acetaminophen 500 mg tablet 1,000 mg (2 x 500 mg) PO Q 8 #0 tabs 09/02/24 Unknown Rx ondansetron 4 mg disintegrating 4 mg PO Q8H PRN PRN Na usea #10 tabs 09/05/24 Unknown Rx tablet Allergy/AdvReac Type Severity Reaction Status Date / Time latex Allergy Hives Verified 09/05/24 10:29 Family History Mother Thyroid disorder Diabetes Hypertension Grandmother Diabetes Uncle Diabetes Aunt Diabetes Other Heart disease Surgical History History of cholecystectomy History of appendectomy History of cholecystectomy Social History household members: spouse and children housing: house Smoking Status: Current every day smoker tobacco type: cigarettes alcohol intake: never substance use type: marijuana what type of physical activity do you participate in: none do you feel safe at home: Yes ROS ROS ED Constitutional Constitutional ED: Denies chills, fever(s) or sweats ENT ENT ED: Denies sore throat Cardiovascular Cardiovascular: Denies chest pain, leg edema, palpitations or racing heartbeat Respiratory/Chest Respiratory/Chest: Denies cough, dyspnea or dyspnea on exertion Gastrointestinal Gastrointestinal: Reports abdominal pain, diarrhea, nausea and vomiting Genitourinary Genitourinary ED: Denies dysuria, hematuria or urinary frequency Musculoskeletal Musculoskeletal: Reports back pain; Denies extremity pain or neck pain Integumentary Denies rash or wounds Neurologic Neurologic: Denies headache(s), paresthesias or weakness EXAM Physical Exam Const Vital Signs: 09/05/24 10:29 09/05/24 11:27 09/05/24 12:36 Temperature 97.7 F L Temperature Source Oral Pulse Rate 103 H 94 90 Respiratory Rate 18 18 15 Blood Pressure 129/88 H 154/97 H 100/62 Blood Pressure Mean 101 116 74 Pulse Ox 97 96 96 Oxygen Delivery Method Room Air Room Air Room Air 09/05/24 15:24 Temperature 97.7 F L Temperature Source Pulse Rate 90 Respiratory Rate 15 Blood Pressure 100/62 Blood Pressure Mean 74 Pulse Ox 96 Oxygen Delivery Method Positive well nourished and well developed General Appearance ED: well developed and NAD HEENT Reports moist mucous membranes normocephalic and atraumatic Eyes General Eye ED: Yes normal appearance of both eyes Neck full ROM Chest Wall Chest: Negative for tenderness Resp normal respiratory effort and normal air movement Effort and Inspection: symmetric chest movement; Negative for respiratory distress Cardio regular rate, regular rhythm and no murmurs Peripheral Pulses: pulses 2+ throughout GI normal to inspection, nondistended, normoactive bowel sounds GI Narrative: Mild tenderness, no guarding or rebound. Negative Jimenez's McBurney's tenderness. Palpation: Negative for guarding or rebound tenderness present Back/Spine Back/Spine Narrative: No midline tenderness. Straight leg test negative. Extremity normal to inspection Extremity Narrative: Previous amputations of the toes left leg. General Extremety ED: Negative for edema or tenderness General Extremity: Negative for edema Neuro oriented x3 and no sensory deficits noted Sensorium / Orientation: awake and alert Skin no rashes or lesions noted and no wounds MDM MDM MDM Narrative Medical decision making narrative: Interventions / MDM: Differential diagnosis: Vomiting diarrhea. Sciatica, lumbar disc herniation Diagnosis considered but do not suspect: DKA however gap was normal. No cauda equina symptoms. My EKG interpretation: N/A Imaging independently reviewed and interpreted by myself: N/A External documents reviewed: Hospitalized August 26 discharged September 02. Back pain leg pain CT angiogram diffuse coronary disease. Evaluated by vascular surgery, they did not feel this was the culprit. She was to continue her dual platelet and type therapy with outpatient follow-up. She had MRI lumbar spine stable compression fracture mainly L3 small at L5 however noted disc bulging L3-L4 with canal stenosis more in the left side. Test considered but not ordered:N/A ED course: Nonsurgical abdomen exam vomiting diarrhea 2 days unable to keep things down including her medications per history. IV established for abdominallabs will give fluids Zofran morphine. Will reevaluate. 1310: Pain is improving. Labs all stable. Glucose level was elevated 382 normal gap. No clinical DKA. Still has mild nausea. I discussed her MRI review noting her L3-J2kwaurxi disc. Discussed likely causing her radicular symptoms. She is on gabapentin 300 mg 3 times a day for which she still has at home. This was held when she was discharged. This will likely benefit her. She does not see pain management or spine surgery. At this time we will give additional fluids Zofran will reevaluate and p.o. challenge. 1500: Reevaluation tolerating oral intake. She was given gabapentin and oxycodone p.o. However states still has pain in her back that reoccurred. Discussed her prescription oxycodone was discharged she states that the pharmacyand she has not picked it up. She does have her daughter at home to help her. Dose 2 additional IV morphine. With her disc herniation L3-L4 discussed likely culprit for her radicular symptoms. Discussed she has medications to help with her back symptoms. She will be referred to pain management for further treatment options and also to orthospine. She has her gabapentin at home to continue. I will send a prescription for Zofran to her pharmacy. Note she is on insulin for her diabetes. She given IV fluids. She will monitor at home. Outpatient follow-up. All questions were answered. Re-evaluation: stable Disposition discussed with patient/family/significant other: Patient Case discussed with consulting clinician: N/A This note was generated with [employer] dictation software. It may contain incorrectwords, spelling, and punctuation that were not noted in checking the note beforesigning. Lab Data Attestation: I reviewed the patient's lab results. Labs: Laboratory Results - last 24 hr 09/05/24 12:10 WBC 9.9 RBC 5.38 Hgb 15.1 H Hct 44.4 MCV 82.5 MCH 28.1 MCHC 34.0 RDW Std Deviation 39.7 RDW Coeff of Spencer 13.3 Plt Count 314 MPV 8.7 Immature Gran % (Auto) 0.500 Neut % (Auto) 79.7 H Lymph % (Auto) 14.1 L Erie % (Auto) 5.1 Eos % (Auto) 0.2 Baso % (Auto) 0.4 Absolute Neuts (auto) 7.9 H Absolute Lymphs (auto) 1.39 Nucleated RBC % 0 Sodium 132 L Potassium 3.6 Chloride 95 L Carbon Dioxide 22.0 Anion Gap 15 BUN 14 Creatinine 0.84 Estim Creat Clear Calc 83.78 Est GFR (MDRD) Non-Af 83 BUN/Creatinine Ratio 16.4 Glucose 382 H Calcium 10.0 Total Bilirubin 0.72 AST 33 H ALT 22 Alkaline Phosphatase 141 H Total Protein 8.2 Albumin 4.2 Globulin 4.0 Albumin/Globulin Ratio 1.0 Lipase 33 Discharge Plan Triage Chief Complaint: Nausea/Vomiting/Diarrhea ED Provider: Zack Card Dx/Rx/DC Orders Clinical Impression: Abdominal pain, vomiting, and diarrhea, Herniated lumbar intervertebral disc, Sciatica, Hyperglycemia due to diabetes mellitus Instructions: ED Diarrhea, Unknown Cause, ED Diet Vomiting Diarrhea, ED Sciatica Prescriptions: New ondansetron 4 mg tablet,disintegrating 4 mg PO Q8H PRN PRN (Reason: Nausea) Qty: 10 0RF No Action pantoprazole 40 mg tablet,delayed release (DR/EC) 40 mg PO DAILY aspirin 81 mg Capsule 81 mg PO DAILY clopidogrel 75 mg Tablet 75 mg PO DAILY Qty: 30 0RF Patient Comments: patient stated pretty sure I still take that sacubitril-valsartan [Entresto] 24-26 mg Tablet 1 tab PO BID 30 Days Qty: 60 0RF insulin glargine [Lantus Solostar U-100 Insulin] 100 unit/mL (3 mL) insulin pen 25 unit subcut DAILY insulin lispro 100 unit/mL insulin pen, half-unit 1 sliding scale dose subcut TIDCM Patient Comments: patient does not know sliding scale atorvastatin 80 mg tablet 80 mg PO QHS gabapentin 300 mg Capsule 300 mg PO TID tizanidine 4 mg tablet 4 mg PO 3XD midodrine 2.5 mg tablet 2.5 mg PO PRN furosemide 20 mg tablet 20 mg PO DAILY escitalopram oxalate 20 mg tablet 20 mg PO DAILY sennosides-docusate sodium [Stimulant Laxative Plus] 8.6-50 mg Tablet 2 tab PO BID PRN (Reason: constipation) polyethylene glycol 3350 [Miralax] 17 gram/dose powder 17 g PO BID PRN (Reason: constipation) acetaminophen 500 mg Tablet 1,000 mg PO Q8 Qty: 0 0RF cholecalciferol (vitamin D3) 1,250 mcg (50,000 unit) tablet 1,250 mcg PO WE DIC 2%/RINKU 6%/LIDOC 2% IN saltsable cream 1 - 2 pump subdermal Q6H PRN (Reason: FOR FEET) spironolactone 25 mg tablet 25 mg PO DAILY 30 Days Qty: 0 0RF ergocalciferol (vitamin D2) [Vitamin D2] 1,250 mcg (50,000 unit) Capsule 1,250 mcg PO We@1000 Qty: 0 0RF carvedilol 3.125 mg tablet 6.25 mg PO BID 30 Days Qty: 0 0RF Rx Instructions: Hold for heart less than 50 or systolic blood pressure less than 100 mmHg. insulin glargine [Lantus Solostar U-100 Insulin] 100 unit/mL (3 mL) insulin pen 20 unit subcut QPM 30 Days Qty: 0 0RF Rx Instructions: Hold if glucose less than 130 mg/dl ondansetron HCl 4 mg tablet 4 mg PO Q8H Qty: 10 0RF Primary Care Provider: Zohreh Mckeon [facility] Referrals: Vel Swartz MD [Med Staff - Active Staff] - 1-2 Weeks Prakristen,Brandon, MD [Med Staff - Active Staff] - 3-5 Days Zohreh Mckeon, SERVICE DESK DIRECTOR-C [Primary Care Provider] - Activity Restrictions/Additional Instructions: Reviewed your MRI and patient recently. Stable L3 fracture, stable L5 fracture. Noted disc herniation L3-L4, this is likely culprit of your pain on your left leg. Continue your gabapentin 300 g 3 times a day as you have at home. Pick upyour oxycodone that was written on discharge to take as needed. Use Zofran as needed. Follow-up with pain management and orthopedic spine for outpatient evaluation. Monitor your glucose with your insulin. Print Language: Italian Disposition Disposition: Home, Self Care What to do if you have Problems For any increased pain, shortness of breath, bleeding, nausea or vomiting, chestpain, or any unexpected problems, contact your Primary Care Provider. Call [facility] ([phone]) or report to the closest Emergency Room. Call 911 if necessary. 09/05/24 1538 <Electronically signed by Zack Han> Cosigner Signature (if applicable): CC: RUTH SERVICE DESK DIRECTOR-Gideon Mckeon ~ Signed [facility] Work Phone: 1(348) 370-897104-01-2025 Consult note Author Haven Viramontes [facility] Note Date/Time September 02, 2024 2:33 pm [facility] Medical Records Department [address] [place] [address] Counseling Note - Pharmacy 09/02/24 1432 MR#: [id number] Acct: [id number] Name: TRENTON JACSKON Rep #:[id number] : 1970 54 From: Haven Viramontes PCP: RUTH Lawrence, SERVICE DESK DIRECTOR-Gideon Statu s:ADM IN Y [id number] has performed discharge medication reconciliation and counseling for this patient. 1. ACETAMINOPHEN 1000MG PO Q8 2. OXYCODONE 5MG Q4H PRN PAIN - Do not take with [place] 3. STOP GABAPENTIN The patient's discharge medication list was reviewed for discrepancies and discrepancies were resolved. The patient was counseled on the following discharge medications and changes in medications for homegoing were reviewed. The Reason for Use, instructions for use, and potential side effects were reviewed for all new medications. The patient's questions regarding all of their medications were answered. The patient was able to verbally demonstrate an understanding of their dischargemedications. Medications at Discharge Home Medications aspirin 81 mg capsule 81 mg PO DAILY heart health 08/10/22 clopidogrel 75 mg tablet 75 mg PO DAILY anti platelet #30 tabs 02/03/23 pantoprazole 40 mg tablet,delayed release 40 mg PO DAILY reflux 04/18/23 sacubitril 24 mg-valsartan 26 mg tablet (Entresto) 1 tab PO BID . 30 days #60 tabs 05/07/23 atorvastatin 80 mg tablet 80 mg PO QHS cholesterol 12/29/23 gabapentin 300 mg capsule 300 mg PO TID nerve pain 12/29/23 insulin glargine 100 unit/mL (3 mL) subcutaneous pen (Lantus Solostar U-100 Insulin) 25 unit subcut DAILY dm 12/29/23 insulin lispro 100 unit/mL subcutaneous half-unit pen 1 sliding scale dose subcut TIDCM glucose 12/29/23 DIC 2%/RINKU 6%/LIDOC 2% IN saltsable 1 - 2 pump subdermal Q6H PRN FOR FEET 02/14/24 cholecalciferol (vitamin D3) 1,250 mcg (50,000 unit) tablet 1,250 mcg PO WE supplement 02/14/24 spironolactone 25 mg tablet 25 mg PO DAILY water pill 30 days #0 tabs 02/17/24 carvedilol 3.125 mg tablet 6.25 mg (2 x 3.125 mg) PO BID blood pressure 30 days #0 tabs 02/19/24 ergocalciferol (vitamin D2) 1,250 mcg (50,000 unit) capsule (Vitamin D2) 1,250 mcg PO We@1000 #0 caps 02/19/24 insulin glargine 100 unit/mL (3 mL) subcutaneous pen (Lantus Solostar U-100 Insulin) 20 unit (0.2 mL) subcut QPM 30 days #0 mL 02/19/24 escitalopram oxalate 20 mg tablet 20 mg PO DAILY depression 06/29/24 furosemide 20 mg tablet 20 mg PO DAILY water pill 06/29/24 midodrine 2.5 mg tablet mg PO PRN blood pressure 06/29/24 polyethylene glycol 3350 17 gram/dose oral powder (Miralax) 17 g PO BID PRN constipation 06/29/24 sennosides 8.6 mg-docusate sodium 50 mg tablet (Stimulant Laxative Plus) 2 tab PO BID PRN constipation 06/29/24 tizanidine 4 mg tablet 4 mg PO 3XD spasm 06/29/24 haloperidol 1 mg tablet 1 mg PO TID #21 tabs 07/03/24 ondansetron HCl 4 mg tablet 4 mg PO Q8H nausea #10 tabs 08/01/24 hydrocodone-acetaminophen 5-325mg 5mg-325mg 1 tab PO Q6H PRN Pain 08/26/24 acetaminophen 500 mg tablet 1,000 mg (2 x 500 mg) PO Q8 #0 tabs 09/02/24 oxycodone 5 mg tablet 5 mg PO Q4H PRN PRN Pain Score 4-10 5 days #20 tabs 09/02/24 09/02/24 1433 <Electronically signed by Haven Viramontes> Date _ Haven Willigner Signature (if applicable): Date CC: ~ Signed [facility] Work Phone: 1(217) 618-466904-01-2025 Discharge summary Author Latricia Aaron [facility] Note Date/Time September 02, 2024 12:4 7pm [facility] Medical Records Department [address] [place] [address] Discharge Summary 09/02/24 1232 MR#: [id number] Acct: [id number] Name: TRENTON JACKSON Rep #:[id number] : 1970 54 From: Latricia Aaron MD PCP: Zohreh Mckeon, RUTH, SERVICE DESK DIRECTOR-C Statu s:ADM IN Location: [facility] [place] [facility] [place] [id number] Providers Date of Admission: 08/26/24 Date of Discharge: 09/02/24 Primary Care Physician: Zohreh Mckeon, [facility], SERVICE DESK DIRECTOR-C Consultations 08/26/24 20:30 Consult: Vascular Surgery Routine Consulting Provider: Riccardo Ng Reason for Consult: Left lower extremity pain with concerns for ischemia EMERGENT Consult: No MD Notified: Yes Date Notified: 08/26/24 Time Notified: 20:10 Method of Notification: Verbal Reason For Visit: PERIPHERAL ARTERIAL CRITICAL STENOSIS WITH EXTREME Diagnosis Discharge Diagnosis (1) 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: Status: Acute Code(s): M79.2 - Neuralgia and neuritis, unspecified (2) Uncontrolled diabetes mellitus: Status: Acute Plan Patient is a 54-year-old lady who presented with intractable left lower leg painand swelling. CT with runoff demonstrated severe disease lower extremity Dopplers were however unremarkable. MRI did show previous compression fractures. Admitted to regular nursing floor for pain management 1. Intractable left lower leg pain ? Thought to be secondary to radiculopathy. MRI did show previous compression fractures at L3 L5. Managed with pain medications as well as muscle relaxant 2. Physical debility ? Secondary to intractable back pain. Requested for PT OT eval and social organization professor to assist with discharge planning ? 09/02/2024 patient was denied transfer to senior care facility by her insurance company since she had refused to participate in physical therapy she was discharged home with home health 3. Peripheral arterial disease -Previous stent about 1 year ago CTA with runoff shows severe disease. Dopplerswere unremarkable. Consult placed to vascular surgery opinion was that patient pain was more related to peripheral arterial disease. Patient is on recommendedmedications including dual antiplatelet therapy as well as statin therapy. Planis for patient to follow-up as outpatient 4. GERD/possible esophagitis ? Patient is on PPI plan is for patient to follow-up with GI as outpatient for EGD and colonoscopy 5. Diabetes mellitus type II -patient's oral hypoglycemics held. Placed on long acting insulin, Accu-Cheks a.c. and at bedtime and covered with sliding scale insulin. Patient hemoglobin A1c from 02/15/2024 was 9.8 6.Coronary artery disease ? Previous evaluation by cardiology on 06/02/2023. Optimization of medical therapy recommended 7. Chronic congestive heart failure with reduced ejection fraction ? Patient last echo from 05/04/2023 demonstrated EF of 15% with severe segmental systolic dysfunction. Patient is on recommended medications including aspirin beta-blockers. Repeated 2D echo. Patient will need to follow-up with cardiologyfor continuous care 09/02/2024; repeat echo demonstrated The left ventricular ejection fraction is 30 %. Normal LV size. There are regional wall motion abnormalities as specified. Compared to previous study, the left ventricular systolic function has improved.. 8. Chronic hypotension ? Patient is on midodrine 9. Dyslipidemia ?Patient is on statin therapy, continued at home dose 10. Tobacco dependence ? Counseled on cessation, offered nicotine patch for tobacco cravings 11. DVT prophylaxis enoxaparin 40 daily 12. Hypophosphatemia ? Corrected per protocol Time spent in the patient's overall evaluation,decision-making process, review of diagnostic data, adjustment of management, discussion with other providers, nursing nursing and ancillary staff involved in patient's care documentation, 36minutes Medications at Discharge Home Medications aspirin 81 mg capsule 81 mg PO DAILY heart health 08/10/22 clopidogrel 75 mg tablet 75 mg PO DAILY anti platelet #30 tabs 02/03/23 pantoprazole 40 mg tablet,delayed release 40 mg PO DAILY reflux 04/18/23 sacubitril 24 mg-valsartan 26 mg tablet (Entresto) 1 tab PO BID . 30 days #60 tabs 05/07/23 atorvastatin 80 mg tablet 80 mg PO QHS cholesterol 12/29/23 gabapentin 300 mg capsule 300 mg PO TID nerve pain 12/29/23 insulin glargine 100 unit/mL (3 mL) subcutaneous pen (Lantus Solostar U-100 Insulin) 25 unit subcut DAILY dm 12/29/23 insulin lispro 100 unit/mL subcutaneous half-unit pen 1 sliding scale dose subcut TIDCM glucose 12/29/23 DIC 2%/RINKU 6%/LIDOC 2% IN saltsable 1 - 2 pump subdermal Q6H PRN FOR FEET 02/14/24 cholecalciferol (vitamin D3) 1,250 mcg (50,000 unit) tablet 1,250 mcg PO WE supplement 02/14/24 spironolactone 25 mg tablet 25 mg PO DAILY water pill 30 days #0 tabs 02/17/24 carvedilol 3.125 mg tablet 6.25 mg (2 x 3.125 mg) PO BID blood pressure 30 days #0 tabs 02/19/24 ergocalciferol (vitamin D2) 1,250 mcg (50,000 unit) capsule (Vitamin D2) 1,250 mcg PO We@1000 #0 caps 02/19/24 insulin glargine 100 unit/mL (3 mL) subcutaneous pen (Lantus Solostar U-100 Insulin) 20 unit (0.2 mL) subcut QPM 30 days #0 mL 02/19/24 escitalopram oxalate 20 mg tablet 20 mg PO DAILY depression 06/29/24 furosemide 20 mg tablet 20 mg PO DAILY water pill 06/29/24 midodrine 2.5 mg tablet mg PO PRN blood pressure 06/29/24 polyethylene glycol 3350 17 gram/dose oral powder (Miralax) 17 g PO BID PRN constipation 06/29/24 sennosides 8.6 mg-docusate sodium 50 mg tablet (Stimulant Laxative Plus) 2 tab PO BID PRN constipation 06/29/24 tizanidine 4 mg tablet 4 mg PO 3XD spasm 06/29/24 haloperidol 1 mg tablet 1 mg PO TID #21 tabs 07/03/24 ondansetron HCl 4 mg tablet 4 mg PO Q8H nausea #10 tabs 08/01/24 hydrocodone-acetaminophen 5-325mg 5mg-325mg 1 tab PO Q6H PRN Pain 08/26/24 acetaminophen 500 mg tablet 1,000 mg (2 x 500 mg) PO Q8 #0 tabs 09/02/24 oxycodone 5 mg tablet 5 mg PO Q4H PRN PRN Pain Score 4-10 5 days #20 tabs 09/02/24 Physical Exam Narrative GENERAL: cooperative HEENT: Atraumatic; normocephalic EYES; Anicteric, Normal Conjunctiva NECK; supple, normal thyroid, RESPIRATORY: Diminished to auscultation CARDIOVASCULAR: Regular S1 S2, GI: soft, normoactive bowel sounds, : No Renal angle tenderness; EXTREMITIES: No edema, no clubbing, MUSCULOSKELETAL: no muscle wasting NEURO: Awake; no lateralizing signs. SKIN: No Rash PSYCH; Flat affect Weight / BMI Weight Weight: 80.1 kg Body Mass Index (BMI) 27.7 ABG / Lab / Microbiology Data 09/02/24 06:20 09/02/24 06:20 Laboratory: Laboratory Results - last 24 hr 09/01/24 14:23: POC Glucose 58 L 09/01/24 14:45: POC Glucose 73 L 09/01/24 15:17: POC Glucose 80 09/01/24 16:55: POC Glucose 142 H 09/01/24 20:16: POC Glucose 162 H 09/02/24 06:20: WBC 9.2, RBC 5.10, Hgb 14.0, Hct 42.7, MCV 83.7, MCH 27.5, MCHC 32.8, RDW Std Deviation 42.4, RDW Coeff of Spencer 13.8, Plt Count 269, MPV 8.8, Immature Gran % (Auto) 0.400, Neut % (Auto) 80.7 H, Lymph % (Auto) 14.4 L, Erie % (Auto) 4.0, Eos % (Auto) 0.2, Baso % (Auto) 0.3, Absolute Neuts (auto) 7.4, Absolute Lymphs (auto) 1.33, Nucleated RBC % 0, Sodium 136, Potassium 3.9, Chloride 101, Carbon Dioxide 20.0 L, Anion Gap 14, BUN 15, Creatinine 0.67 L, Estim Creat Clear Calc 105.77, Est GFR (MDRD) Non-Af 104, BUN/Creatinine Ratio 22.6 H, Glucose 242 H, Calcium 9.4, Phosphorus 2.1 L, Magnesium 2.0 09/02/24 06:55: POC Glucose 248 H 09/02/24 11:30: POC Glucose 228 H Microbiology: Microbiology 08/29/24 23:15 Stool Enteric Bacteriology - Final 08/29/24 23:15 Stool Clostridioides difficile (PCR) - Final Radiography Diagnostic Testing: Radiology Impression Echocardiogram 09/01/24 09:16 Interpretation Summary The left ventricular ejection fraction is 30 %. Normal LV size. There are regional wall motion abnormalities as specified. Compared to previous study, the left ventricular systolic function has improved.. Contrast injection was performed. Ordering Physician: Latricia Aaron Referring Physician: ZOHREH MCKEON Performed By: Adela Pimentel RDCS D/C Instructions Discharge Diet: 1800 Calorie Control Diet Discharge Activity: Return to Normal Activity Call your doctor if you observe: Fever of 101 or Higher, Shortness of breath, Fainting spells and Chest pain DC O2, CPAP, BIPAP Needs Home O2 Discharge instructions: No Please Follow Up With: Belén Lugo MD Meaningful Use Info Meaningful Use Meaningful Use Diagnoses (Choose all that apply): None applicable Ischemic Stroke Statin Dosing Therapy Reference: STATIN DOSE THERAPY REFERENCE: * Patients > 75 years receive moderate or high dose statin therapy. * Patients 75 years or YOUNGER should receive HIGH intensity statin dose unless contraindicated. You will be required to document reason for non-treatment if statin daily dose does not meet guidelines. HIGH DOSE STATIN THERAPY DAILY Atorvastatin > than or = to 40 mg Rosuvastatin > than or = to 20 mg Amlodipine + Atorvastatin > than or = to 2.5/40 mg Ezetimibe + Simvastatin 10/80 mg Simvastatin 80mg Discharge Plan Admission Admit Date/Time: 08/26/24 20:03 Attending Provider: Latricia Aaron Primary Care Provider: Zohreh Mckeon [facility] Consulting Providers: Brenda Posadas; Riccardo Ng; Nicole Trujillo Discharge Orders/Prescriptions Prescriptions: New acetaminophen 500 mg Tablet 1,000 mg PO Q8 Qty: 0 0RF oxycodone 5 mg Tablet 5 mg PO Q4H PRN PRN (Reason: Pain Score 4-10) 5 Days Qty: 20 0RF Continued pantoprazole 40 mg tablet,delayed release (DR/EC) 40 mg PO DAILY aspirin 81 mg Capsule 81 mg PO DAILY clopidogrel 75 mg Tablet 75 mg PO DAILY Qty: 30 0RF Patient Comments: patient stated pretty sure I still take that sacubitril-valsartan [Entresto] 24-26 mg Tablet 1 tab PO BID 30 Days Qty: 60 0RF insulin glargine [Lantus Solostar U-100 Insulin] 100 unit/mL (3 mL) insulin pen 25 unit subcut DAILY insulin lispro 100 unit/mL insulin pen, half-unit 1 sliding scale dose subcut TIDCM Patient Comments: patient does not know sliding scale atorvastatin 80 mg tablet 80 mg PO QHS gabapentin 300 mg Capsule 300 mg PO TID tizanidine 4 mg tablet 4 mg PO 3XD midodrine 2.5 mg tablet PO PRN furosemide 20 mg tablet 20 mg PO DAILY escitalopram oxalate 20 mg tablet 20 mg PO DAILY sennosides-docusate sodium [Stimulant Laxative Plus] 8.6-50 mg Tablet 2 tab PO BID PRN (Reason: constipation) polyethylene glycol 3350 [Miralax] 17 gram/dose powder 17 g PO BID PRN (Reason: constipation) haloperidol 1 mg tablet 1 mg PO TID Qty: 21 0RF Rx Instructions: for nausea hydrocodone-acetaminophen 5-325 mg tablet 1 tab PO Q6H PRN (Reason: Pain) cholecalciferol (vitamin D3) 1,250 mcg (50,000 unit) tablet 1,250 mcg PO WE DIC 2%/RINKU 6%/LIDOC 2% IN saltsable cream 1 - 2 pump subdermal Q6H PRN (Reason: FOR FEET) spironolactone 25 mg tablet 25 mg PO DAILY 30 Days Qty: 0 0RF ergocalciferol (vitamin D2) [Vitamin D2] 1,250 mcg (50,000 unit) Capsule 1,250 mcg PO We@1000 Qty: 0 0RF carvedilol 3.125 mg tablet 6.25 mg PO BID 30 Days Qty: 0 0RF Rx Instructions: Hold for heart less than 50 or systolic blood pressure less than 100 mmHg. insulin glargine [Lantus Solostar U-100 Insulin] 100 unit/mL (3 mL) insulin pen 20 unit subcut QPM 30 Days Qty: 0 0RF Rx Instructions: Hold if glucose less than 130 mg/dl ondansetron HCl 4 mg tablet 4 mg PO Q8H Qty: 10 0RF Discontinued gabapentin 400 mg capsule 400 mg 3XD Referrals / Follow Up: Zohreh Mckeon, SERVICE DESK DIRECTOR-C [Primary Care Provider] - Within 1 Week Disposition Disposition (needs filled in before D/C Order can be placed): Home Health Service Charges/Coding Visit Charges Inpatient E&M: 24897 Disch Hosp >30min 09/02/24 1247 <Electronically signed by Latricia Aaron MD> Cosigner Signature (if applicable): CC: RUTH SERVICE DESK DIRECTOR-C Zohreh Mckeon; Dr. Latricia Aaron MD~ Signed [facility] Work Phone: 1(801) 321-931004-01-2025 [facility]04-01-2025 Progress note Author Latricia Aaron [facility] Note Date/Time September 02, 2024 9:14 am [facility] Medical Records Department [address] [place] [address] Progress Note - Hospitalist 09/02/24 0751 MR#: [id number] Acct: [id number] Name: TRENTON JACKSON Rep #:[id number] : 1970 54 From: Latricia Aaron MD PCP: Zohreh Mckeon [facility], SERVICE DESK DIRECTOR-C Statu s:ADM IN [id number] Reason for Visit Reason for Visit: Diagnoses Peripheral vascular disease, unspecified (08/26/24) Neuralgia and neuritis, unspecified (08/26/24) Pain in left leg (08/26/24) Subjective Subjective Patient seen diagnostic data this a.m. is significant for low phosphorus level additional replacement. Patient seen this morning complaining of nausea and pain and is therefore refusing a.m. medication and order was given for patient to receive additional Phenergan 25 mg intramuscular Objective Data Objective Data Vital Signs: Vital Signs Temp Pulse Resp BP Pulse Ox O2 Del Method 97.7 F L 105 H 20 H 153/101 H 99 Room Air 09/02/24 06:41 09/02/24 06:41 09/02/24 06:41 09/02/24 06:41 09/02/24 06:41 09/02/24 06:41 Oxygen Delivery Method Room Air Weight: 80.1 kg Body Mass Index (BMI) 27.7 Intake & Output: Intake and Output for Last 24 Hours 08/31/24 09/01/24 09/02/24 23:59 23:59 23:59 Intake Total 1550 / 1550 Balance 1550 / 1550 Lab / Micro Data 09/02/24 06:20 09/02/24 06:20 Labs: Laboratory Results - last 24 hr 09/01/24 07:22: Sodium 138, Potassium 4.0, Chloride 110 H, Carbon Dioxide 19.8 L, Anion Gap 8, BUN 21 H, Creatinine 0.77, Estim Creat Clear Calc 91.72, Est GFR (MDRD) Non-Af 93, BUN/Creatinine Ratio 27.7 H, Glucose 93, Calcium 8.7 09/01/24 11:38: POC Glucose 139 H 09/01/24 14:23: POC Glucose 58 L 09/01/24 14:45: POC Glucose 73 L 09/01/24 15:17: POC Glucose 80 09/01/24 16:55: POC Glucose 142 H 09/01/24 20:16: POC Glucose 162 H 09/02/24 06:20: WBC 9.2, RBC 5.10, Hgb 14.0, Hct 42.7, MCV 83.7, MCH 27.5, MCHC 32.8, RDW Std Deviation 42.4, RDW Coeff of Spencer 13.8, Plt Count 269, MPV 8.8, Immature Gran % (Auto) 0.400, Neut % (Auto) 80.7 H, Lymph % (Auto) 14.4 L, [place] % (Auto) 4.0, Eos % (Auto) 0.2, Baso % (Auto) 0.3, Absolute Neuts (auto) 7.4, Absolute Lymphs (auto) 1.33, Nucleated RBC % 0, Sodium 136, Potassium 3.9, Chloride 101, Carbon Dioxide 20.0 L, Anion Gap 14, BUN 15, Creatinine 0.67 L, Estim Creat Clear Calc 105.77, Est GFR (MDRD) Non-Af 104, BUN/Creatinine Ratio 22.6 H, Glucose 242 H, Calcium 9.4, Phosphorus 2.1 L, Magnesium 2.0 Micro: Microbiology 08/29/24 23:15 Stool Enteric Bacteriology - Final 08/29/24 23:15 Stool Clostridioides difficile (PCR) - Final Radiography Diagnostic Testing: Radiology Impression Echocardiogram 09/01/24 09:16 Interpretation Summary The left ventricular ejection fraction is 30 %. Normal LV size. There are regional wall motion abnormalities as specified. Compared to previous study, the left ventricular systolic function has improved.. Contrast injection was performed. Ordering Physician: Latricia Aaron Referring Physician: ZOHREH MCKEON Performed By: Adela Pimentel RDCS Physical Exam Narrative GENERAL: cooperative HEENT: Atraumatic; normocephalic EYES; Anicteric, Normal Conjunctiva NECK; supple, normal thyroid, RESPIRATORY: Diminished to auscultation CARDIOVASCULAR: Regular S1 S2, GI: soft, normoactive bowel sounds, : No Renal angle tenderness; EXTREMITIES: No edema, no clubbing, MUSCULOSKELETAL: no muscle wasting NEURO: Awake; no lateralizing signs. SKIN: No Rash PSYCH; Flat affect Assessment & Plan Assessment/Plan (1) 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: (2) Uncontrolled diabetes mellitus: PLAN: Plan Patient is a 54-year-old lady who presented with intractable left lower leg painand swelling. CT with runoff demonstrated severe disease lower extremity Dopplers were however unremarkable. MRI did show previous compression fractures. Admitted to regular nursing floor for pain management 1. Intractable left lower leg pain ? Thought to be secondary to radiculopathy. MRI did show previous compression fractures at L3 L5. Managed with pain medications as well as muscle relaxant 2. Physical debility ? Secondary to intractable back pain. Requested for PT OT eval and social organization professor to assist with discharge planning 3. Peripheral arterial disease -Previous stent about 1 year ago CTA with runoff shows severe disease. Dopplerswere unremarkable. Consult placed to vascular surgery opinion was that patient pain was more related to peripheral arterial disease. Patient is on recommendedmedications including dual antiplatelet therapy as well as statin therapy. Planis for patient to follow-up as outpatient 4. GERD/possible esophagitis ? Patient is on PPI plan is for patient to follow-up with GI as outpatient for EGD and colonoscopy 5. Diabetes mellitus type II -patient's oral hypoglycemics held. Placed on long acting insulin, Accu-Cheks a.c. and at bedtime and covered with sliding scale insulin. Patient hemoglobin A1c from 02/15/2024 was 9.8 6.Coronary artery disease ? Previous evaluation by cardiology on 06/02/2023. Optimization of medical therapy recommended 7. Chronic congestive heart failure with reduced ejection fraction ? Patient last echo from 05/04/2023 demonstrated EF of 15% with severe segmental systolic dysfunction. Patient is on recommended medications including aspirin beta-blockers. Repeated 2D echo. Patient will need to follow-up with cardiologyfor continuous care 8. Chronic hypotension ? Patient is on midodrine 9. Dyslipidemia ?Patient is on statin therapy, continued at home dose 10. Tobacco dependence ? Counseled on cessation, offered nicotine patch for tobacco cravings 11. DVT prophylaxis enoxaparin 40 daily 12. Hypophosphatemia ? Corrected per protocol Time spent in the patient's overall evaluation,decision-making process, review of diagnostic data, adjustment of management, discussion with other providers, nursing nursing and ancillary staff involved in patient's care documentation, 36minutes Charges/Coding Visit Charges Inpatient E&M: 64727 Subs Hosp L2 09/02/24 0914 <Electronically signed by Latricia Aaron MD> Cosigner Signature (if applicable): CC: ~ Signed [facility] Work Phone: 1([phone]) 397-845103-31-2025 Progress note Author Latricia Aaron [facility] Note Date/Time September 01, 2024 12: 47pm [facility] Medical Records Department [address] [place] [address] Progress Note - Hospitalist 09/01/24 0819 MR#: [id number] Acct: [id number] Name: TRENTON JACKSON Rep #:[id number] : 1970 54 From: Latricia Aaron MD PCP: RUTH Lawrence, SERVICE DESK DIRECTOR-C Statu s:ADM IN Location: [place] [id number] Reason for Visit Reason for Visit: Diagnoses Peripheral vascular disease, unspecified (08/26/24) Neuralgia and neuritis, unspecified (08/26/24) Pain in left leg (08/26/24) Subjective Subjective Patient is a 54-year-old lady who presented with intractable left lower leg painand swelling. CT with runoff demonstrated severe disease lower extremity Dopplers were however unremarkable. MRI did show previous compression fractures. Admitted to regular nursing floor for pain management Objective Data Objective Data Vital Signs: Vital Signs Temp Pulse Resp BP Pulse Ox O2 Del Method 97.9 F 75 18 109/65 96 Room Air 09/01/24 06:36 09/01/24 06:36 09/01/24 06:36 09/01/24 06:36 09/01/24 06:36 09/01/24 06:36 Oxygen Delivery Method Room Air Weight: 79.5 kg Body Mass Index (BMI) 27.5 Intake & Output: Intake and Output for Last 24 Hours 08/30/24 08/31/24 09/01/24 23:59 23:59 23:59 Intake Total 600 / 600 Balance 600 / 600 Lab / Micro Data 09/01/24 07:22 09/01/24 07:22 Labs: Laboratory Results - last 24 hr 08/31/24 05:54: POC Glucose 126 H 08/31/24 11:47: POC Glucose 152 H 08/31/24 16:22: POC Glucose 129 H 08/31/24 21:43: POC Glucose 228 H 09/01/24 07:22: WBC 6.6, RBC 3.80 L, Hgb 10.7 L, Hct 32.6 L, MCV 85.8, MCH 28.2,MCHC 32.8, RDW Std Deviation 44.1 H, RDW Coeff of Spencer 14.2, Plt Count 238, MPV 9.0, Sodium 138, Potassium 4.0, Chloride 110 H, Carbon Dioxide 19.8 L, Anion Gap8, BUN 21 H, Creatinine 0.77, Estim Creat Clear Calc 91.72, Est GFR (MDRD) Non-Af 93, BUN/Creatinine Ratio 27.7 H, Glucose 93, Calcium 8.7 09/01/24 07:31: POC Glucose 90 Micro: Microbiology 08/29/24 23:15 Stool Enteric Bacteriology - Final 08/29/24 23:15 Stool Clostridioides difficile (PCR) - Final Physical Exam Narrative GENERAL: cooperative HEENT: Atraumatic; normocephalic EYES; Anicteric, Normal Conjunctiva NECK; supple, normal thyroid, RESPIRATORY: Diminished to auscultation CARDIOVASCULAR: Regular S1 S2, GI: soft, normoactive bowel sounds, : No Renal angle tenderness; EXTREMITIES: No edema, no clubbing, MUSCULOSKELETAL: no muscle wasting NEURO: Awake; no lateralizing signs. SKIN: No Rash PSYCH; Flat affect Assessment & Plan Assessment/Plan (1) 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: (2) Uncontrolled diabetes mellitus: PLAN: Plan Patient is a 54-year-old lady who presented with intractable left lower leg painand swelling. CT with runoff demonstrated severe disease lower extremity Dopplers were however unremarkable. MRI did show previous compression fractures. Admitted to regular nursing floor for pain management 1. Intractable left lower leg pain ? Thought to be secondary to radiculopathy. MRI did show previous compression fractures at L3 L5. Managed with pain medications as well as muscle relaxant 2. Physical debility ? Secondary to intractable back pain. Requested for PT OT eval and social organization professor to assist with discharge planning 3. Peripheral arterial disease -Previous stent about 1 year ago CTA with runoff shows severe disease. Dopplerswere unremarkable. Consult placed to vascular surgery opinion was that patient pain was more related to peripheral arterial disease. Patient is on recommendedmedications including dual antiplatelet therapy as well as statin therapy. Planis for patient to follow-up as outpatient 4. GERD/possible esophagitis ? Patient is on PPI plan is for patient to follow-up with GI as outpatient for EGD and colonoscopy 5. Diabetes mellitus type II -patient's oral hypoglycemics held. Placed on long acting insulin, Accu-Cheks a.c. and at bedtime and covered with sliding scale insulin. Patient hemoglobin A1c from 02/15/2024 was 9.8 6.Coronary artery disease ? Previous evaluation by cardiology on 06/02/2023. Optimization of medical therapy recommended 7. Chronic congestive heart failure with reduced ejection fraction ? Patient last echo from 05/04/2023 demonstrated EF of 15% with severe segmental systolic dysfunction. Patient is on recommended medications including aspirin beta-blockers. Repeated 2D echo. Patient will need to follow-up with cardiologyfor continuous care 8. Chronic hypotension ? Patient is on midodrine 9. Dyslipidemia ?Patient is on statin therapy, continued at home dose 10. Tobacco dependence ? Counseled on cessation, offered nicotine patch for tobacco cravings 11. DVT prophylaxis enoxaparin 40 daily Time spent in the patient's overall evaluation,decision-making process, review of diagnostic data, adjustment of management, discussion with other providers, nursing nursing and ancillary staff involved in patient's care documentation, 38 minutes Charges/Coding Visit Charges Inpatient E&M: 93576 Subs Hosp L2 09/01/24 5275 <Electronically signed by Latricia Aaron MD> Cosigner Signature (if applicable): CC: ~ Signed [facility] Work Phone: 1(142) 699-224203-30-2025 Progress note Author Nicole Trujillo [facility] Note Date/Time August 31, 2024 2:1 2pm [facility] Medical Records Department [address] [place] [address] Progress Note - Hospitalist 08/31/24 0854 MR#: [id number] Acct: [id number] Name: TRENTON JACKSON Rep #:[id number] : 1970 54 From: Nicole Trujillo DO PCP: RUTH Lawrence, SERVICE DESK DIRECTOR-C Statu s:ADM IN Location: [place] [id number] Reason for Visit Reason for Visit: Left lower extremity pain-intractable Subjective Subjective No complaints from overnight. Diarrhea has resolved. No issues. Objective Data Objective Data Vital Signs: Vital Signs Temp Pulse Resp BP Pulse Ox O2 Del Method 97.7 F L 81 18 136/80 H 100 Room Air 08/31/24 05:47 08/31/24 05:47 08/31/24 05:47 08/31/24 05:47 08/31/24 05:47 08/31/24 05:47 Oxygen Delivery Method Room Air Weight: 79.1 kg Body Mass Index (BMI) 27.3 Intake & Output: Intake and Output for Last 24 Hours 08/29/24 08/30/24 08/31/24 23:59 23:59 23:59 Intake Total 600 / 600 Balance 600 / 600 Lab / Micro Data 08/29/24 06:32 08/29/24 06:32 Labs: Laboratory Results - last 24 hr 08/30/24 11:48: POC Glucose 152 H 08/30/24 16:25: POC Glucose 253 H 08/30/24 20:34: POC Glucose 215 H Micro: Microbiology 08/29/24 23:15 Stool Enteric Bacteriology - Final 08/29/24 23:15 Stool Clostridioides difficile (PCR) - Final Physical Exam Const alert, oriented x3 and well nourished; Negative for no apparent distress, average body habitus or healthy appearing Constitutional Narrative: Middle-aged, white female who appears much older than stated age, sitting upright in bed watching cartoons on television, appears comfortable, nontoxic HEENT head/scalp atraumatic and moist oral mucous membranes HEENT Narrative: Edentulous, Mallampati 2, no thrush Head and Scalp: normocephalic Cardio regular rate, regular rhythm, S1 normal heart sound, S2 normal heart sound, no murmurs, no rub, no gallops and no clicks Psych affect normal Psych Narrative: Appears comfortable, nontoxic Assessment & Plan Assessment/Plan (1) 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: (2) Uncontrolled diabetes mellitus: PLAN: Plan Intractable left lower extremity pain -Lower extremity Dopplers unremarkable -CTA with runoff shows severe disease however per discussion today with vascularsurgery do not believe this is the etiology of her leg pain as she does have good flow on exam -ABIs abnormal but not significantly abnormal to the point any interventions required at this time -Concern for radiculopathy so MRI of the lumbar spine was ordered -Patient does have previous compression fractures -PT/OT following -Case management/SW following and plan is for discharge to skilled facility onceacceptance and pre-CERT is obtained Diarrhea -Now resolved History of compression fractures of L3 and L5 -MRI as noted above Possible esophagitis/chronic GERD -Noted on CT of the abdomen pelvis from previous admission -Continue home PPI once medications have been verified -Will again make outpatient referral to GI at the time of discharge for EGD and colonoscopy It does not appear patient ever followed up after her last discharge-On 07/03/2024 DM-2 -Appears to be uncontrolled as A1c on 02/15/2024 was 9.8 -AM fasting blood sugar was 126 -Will continue 20 units subcu basal insulin at this time and continue to follow -Prandial sugars have been elevated so we did go ahead and add 8 units of subcu prandial insulin along with sliding scale -Continue to trend -Continue SSI -Accu-Cheks as ordered -Cardiac/carb controlled diet CAD/chronic combined heart failure/chronic hypotension/hyperlipidemia -It appears medication compliance is an issue -Last echocardiogram on 05/04/2023 showed EF of 15% with severe segmental systolic dysfunction-, stage III diastolic dysfunction and moderate eccentric mitral valve insufficiency -Continue home Lasix as patient currently appears euvolemic -Continue aspirin and beta-linda -Continue statin -Continue midodrine 5 mg 3 times daily Severe peripheral vascular disease -Previous stent about 1 year ago -Vascular surgery is currently following -ABIs abnormal but no acute intervention required -Heparin was able to be discontinued last evening -Continue aspirin/Plavix and statin -has required previous amputations as a result of what appears to be her peripheral vascular disease Depression -Continue home medications Tobacco abuse -Recommend cessation -Nicotine patch if patient desires DVT prophylaxis -Continue enoxaparin 40 daily CODE STATUS -Full code Disposition: -Patient has been medically ready for discharge since 08/28/2024. We are continuing to wait for pre-CERT. Hopeful for tomorrow Charges/Coding Visit Charges Inpatient E&M: 83783 Subs Hosp L1 08/31/24 1412 <Electronically signed by Nicole Trujillo DO> Cosigner Signature (if applicable): CC: ~ Signed [facility] Work Phone: [phone]) 714-431203-29-2025 Progress note Author Nicole Trujillo [facility] Note Date/Time August 30, 2024 3:3 1pm [facility] Medical Records Department [address] [place] [address] Progress Note - Hospitalist 08/30/24 1528 MR#: [id number] Acct: [id number] Name: TRENTON JACKSON Rep #:[id number] : 1970 54 From: Nicole Trujillo DO PCP: RUTH Lawrence, SERVICE DESK DIRECTOR-C Statu s:ADM IN Location: [place] [id number] Reason for Visit Reason for Visit: Left lower extremity pain Subjective Subjective No issues overnight. P.o. intake is good. Pain seems fairly well-controlled. Awaiting for pre-CERT. Patient with diarrhea overnight but C. difficile negative. Started Imodium. Objective Data Objective Data Vital Signs: Vital Signs Temp Pulse Resp BP Pulse Ox O2 Del Method 97.2 F L 91 18 131/68 H 99 Room Air 08/30/24 14:52 08/30/24 14:52 08/30/24 14:52 08/30/24 14:52 08/30/24 14:52 08/30/24 14:52 Oxygen Delivery Method Room Air Weight: 79.2 kg Body Mass Index (BMI) 27.3 Intake & Output: Intake and Output for Last 24 Hours 08/28/24 08/29/24 08/30/24 23:59 23:59 23:59 Intake Total 600 / 600 Balance 600 / 600 Lab / Micro Data 08/29/24 06:32 08/29/24 06:32 Labs: Laboratory Results - last 24 hr 08/29/24 16:32: POC Glucose 160 H 08/29/24 21:03: POC Glucose 318 H 08/30/24 05:22: POC Glucose 117 H 08/30/24 11:48: POC Glucose 152 H Micro: Microbiology 08/29/24 23:15 Stool Enteric Bacteriology - Final 08/29/24 23:15 Stool Clostridioides difficile (PCR) - Final Physical Exam Const alert, oriented x3 and well nourished; Negative for no apparent distress, average body habitus or healthy appearing Constitutional Narrative: Middle-aged, white female who appears much older than stated age, sitting upright in bed watching television, appears comfortable, nontoxic HEENT head/scalp atraumatic HEENT Narrative: Edentulous Head and Scalp: normocephalic Neuro moves all extremities Psych affect normal Psych Narrative: Appears comfortable, nontoxic Assessment & Plan Assessment/Plan (1) 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: (2) Uncontrolled diabetes mellitus: PLAN: Plan Intractable left lower extremity pain -Lower extremity Dopplers unremarkable -CTA with runoff shows severe disease however per discussion today with vascularsurgery do not believe this is the etiology of her leg pain as she does have good flow on exam -ABIs abnormal but not significantly abnormal to the point any interventions required at this time -Concern for radiculopathy so MRI of the lumbar spine was ordered -Patient does have previous compression fractures -PT/OT following -Case management/SW following and plan is for discharge to skilled facility onceacceptance and pre-CERT is obtained Diarrhea -Developed last evening -C. difficile ordered and negative -Enteric panel negative -As needed Imodium made available History of compression fractures of L3 and L5 -MRI as noted above Possible esophagitis/chronic GERD -Noted on CT of the abdomen pelvis from previous admission -Continue home PPI once medications have been verified -Will again make outpatient referral to GI at the time of discharge for EGD and colonoscopy It does not appear patient ever followed up after her last discharge-On 07/03/2024 DM-2 -Appears to be uncontrolled as A1c on 02/15/2024 was 9.8 -AM fasting blood sugar was 117 -Will continue 20 units subcu basal insulin at this time and continue to follow -Continue SSI -Accu-Cheks as ordered -Cardiac/carb controlled diet CAD/chronic combined heart failure/chronic hypotension/hyperlipidemia -It appears medication compliance is an issue -Last echocardiogram on 05/04/2023 showed EF of 15% with severe segmental systolic dysfunction-, stage III diastolic dysfunction and moderate eccentric mitral valve insufficiency -Continue home Lasix as patient currently appears euvolemic -Continue aspirin and beta-linda -Continue statin -Continue midodrine but decrease dose from 10 mg to 5 mg 3 times daily Severe peripheral vascular disease -Previous stent about 1 year ago -Vascular surgery is currently following -ABIs abnormal but no acute intervention required -Heparin was able to be discontinued last evening -Continue aspirin/Plavix and statin -has required previous amputations as a result of what appears to be her peripheral vascular disease Depression -Continue home medications Tobacco abuse -Recommend cessation -Nicotine patch if patient desires DVT prophylaxis -Continue enoxaparin 40 daily CODE STATUS -Full code Disposition: -Patient has been medically ready for discharge since 08/28/2024. Currently awaiting pre-CERT. Charges/Coding Visit Charges Inpatient E&M: 08563 Subs Hosp L1 08/30/24 1531 <Electronically signed by Nicole Trujillo DO> Cosigner Signature (if applicable): CC: ~ Signed [facility] Work Phone: [phone]) 885-513503-28-2025 Progress note Author Nicole Trujillo [facility] Note Date/Time August 29, 2024 5:0 3pm [facility] Medical Records Department [address] [place] [address] Progress Note - Hospitalist 08/29/24 1647 MR#: [id number] Acct: [id number] Name: TRENTON JACKSON Rep #:[id number] : 1970 54 From: Nicole Trujillo DO PCP: RUTH Lawrence, SERVICE DESK DIRECTOR-C Statu s:ADM IN [id number] Reason for Visit Reason for Visit: Left leg pain Subjective Subjective Patient currently sitting up in bed watching television, appears comfortable, nontoxic, not complaining of any significant pain or nausea or vomiting at this time. Objective Data Objective Data Vital Signs: Vital Signs Temp Pulse Resp BP Pulse Ox O2 Del Method 98.0 F 91 16 122/68 H 98 Room Air 03/28/25 14:33 08/29/24 16:45 08/29/24 14:33 08/29/24 16:45 08/29/24 14:33 08/29/24 15:08 Oxygen Delivery Method Room Air Weight: 80.1 kg Body Mass Index (BMI) 27.6 Intake & Output: Intake and Output for Last 24 Hours 08/27/24 08/28/24 08/29/24 23:59 23:59 23:59 Intake Total 1118.18 / 1118.18 Output Total 900 / 900 Balance 218.18 / 218.18 Lab / Micro Data 08/29/24 06:32 08/29/24 06:32 Labs: Laboratory Results - last 24 hr 08/28/24 16:27: POC Glucose 176 H 08/28/24 21:04: POC Glucose 182 H 08/29/24 06:32: WBC 9.0, RBC 3.97 L, Hgb 11.2 L, Hct 33.7 L, MCV 84.9, MCH 28.2,MCHC 33.2, RDW Std Deviation 43.4, RDW Coeff of Spencer 14.0, Plt Count 205, MPV 9.3, Immature Gran % (Auto) 0.300, Neut % (Auto) 64.7, Lymph % (Auto) 24.4, [place]% (Auto) 7.6, Eos % (Auto) 2.4, Baso % (Auto) 0.6, Absolute Neuts (auto) 5.8, Absolute Lymphs (auto) 2.20, Nucleated RBC % 0, Sodium 135, Potassium 3.7, Chloride 104, Carbon Dioxide 21.3, Anion Gap 10, BUN 26 H, Creatinine 0.80, Estim Creat Clear Calc 88.59, Est GFR (MDRD) Non-Af 89, BUN/Creatinine Ratio 32.2 H, Glucose 104 H, Calcium 8.9 08/29/24 06:49: POC Glucose 93 08/29/24 11:11: POC Glucose 156 H Physical Exam Const alert, oriented x3 and well nourished; Negative for no apparent distress, average body habitus or healthy appearing Constitutional Narrative: Middle-aged, white female who appears much older than stated age, sitting up in bed watching television, appears comfortable, nontoxic HEENT head/scalp atraumatic Head and Scalp: normocephalic Resp normal respiratory effort, no retractions, no use of accessory muscles and clearto auscultation bilaterally Resp Narrative: Diffusely diminished but clear Auscultation: Negative for rales, rhonchi or wheezes Cardio regular rate, regular rhythm, S1 normal heart sound, S2 normal heart sound, no murmurs, no rub, no gallops and no clicks GI normal to inspection, nondistended, normoactive bowel sounds, soft to palpation and non-tender Extremity Extremity Narrative: Transmetatarsal amputation left lower extremity, foot is erythematous and warm, dorsalis pedis pulses are faint but present by palpation, cap refill is slightlydelayed, no clubbing or cyanosis, previous amputation of second digit on her right foot noted as well, skin is dry Neuro oriented x3 and moves all extremities Neuro Narrative: Decree sensation bilateral lower extremities Speech: speech normal Psych Psych Narrative: Is flat and mood seems depressed patient tearful Assessment & Plan Assessment/Plan (1) 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: (2) Uncontrolled diabetes mellitus: PLAN: Plan Intractable left lower extremity pain -Lower extremity Dopplers unremarkable -CTA with runoff shows severe disease however per discussion today with vascularsurgery do not believe this is the etiology of her leg pain as she does have good flow on exam -ABIs abnormal but not significantly abnormal to the point any interventions required at this time -Concern for radiculopathy so MRI of the lumbar spine was ordered -Patient does have previous compression fractures -PT/OT following -Case management/SW following and plan is for discharge to skilled facility onceacceptance and pre-CERT is obtained History of compression fractures of L3 and L5 -MRI as noted above Possible esophagitis/chronic GERD -Noted on CT of the abdomen pelvis from previous admission -Continue home PPI once medications have been verified -Will again make outpatient referral to GI at the time of discharge for EGD and colonoscopy It does not appear patient ever followed up after her last discharge-On 07/03/2024 DM-2 -Appears to be uncontrolled as A1c on 02/15/2024 was 9.8 -AM fasting blood sugar was 109 -Will continue 20 units subcu basal insulin at this time and continue to follow -Continue SSI -Accu-Cheks as ordered -Cardiac/carb controlled diet CAD/chronic combined heart failure/chronic hypotension/hyperlipidemia -It appears medication compliance is an issue -Last echocardiogram on 05/04/2023 showed EF of 15% with severe segmental systolic dysfunction-, stage III diastolic dysfunction and moderate eccentric mitral valve insufficiency -Continue home Lasix as patient currently appears euvolemic -Continue aspirin and beta-linda -Continue statin Severe peripheral vascular disease -Previous stent about 1 year ago -Vascular surgery is currently following -ABIs abnormal but no acute intervention required -Heparin was able to be discontinued last evening -Continue aspirin/Plavix and statin -has required previous amputations as a result of what appears to be her peripheral vascular disease Depression -Continue home medications Tobacco abuse -Recommend cessation -Nicotine patch if patient desires DVT prophylaxis -Continue enoxaparin 40 daily CODE STATUS -Full code Disposition: -Patient has been medically ready for discharge since 08/28/2024. Currently awaiting pre-CERT. Charges/Coding Visit Charges Inpatient E&M: 05313 Subs Hosp L1 08/29/24 1703 <Electronically signed by Nicole Trujillo DO> Cosigner Signature (if applicable): CC: ~ Signed [facility] Work Phone: 1(670) 143-131103-28-2025 Discharge summary Author Nicole Trujillo [facility] Note Date/Time August 29, 2024 9:5 0am [facility] Medical Records Department [address] [place] [address] Transfer to [facility] MR#: [id number] Acct: [id number] Name: TRENTON JACKSON Rep #:[id number] : 1970 54 From: Nicole Trujillo DO PCP: RUTH Lawrence, SERVICE DESK DIRECTOR-C Statu s:ADM IN Certification of patient admission REQUIRED AT TIME OF ADMISSION. I CERTIFY THAT POST-HOSPITAL ECF SERVICES ARE REQUIRED TO BE GIVEN ON AN IN-PATIENT BASIS BECAUSE OF THE ABOVE NAMED PATIENT'S NEED FOR CORRECTION CARE ON A CONTINUING BASIS FOR THE CONDITION(S) FOR WHICH HE/SHE WAS RECEIVING IN-PATIENT HOSPITAL SERVICES PRIOR TO HIS/HER TRANSFER TO THE ECF. 08/29/24 0971<Electronically signed by Nicole Trujillo DO> Diet Diet Order/Speech Therapy: 08/27/24 15:12 Diet: Cardiac: Calorie-Controlled How many daily calories?: 1800 calorie Routine Orders/Code Status Suppository Frequency: Daily PRN Routine Lab Work: CBC (2 weeks) and BMP (2 weeks) Code Status: Full Code DC O2, CPAP, BIPAP needs Home O2 Discharge instructions: No Suggestions for Active Care Change Position every (hours): 2 Hours to sit in a chair: 3 Times a day to sit in chair: 2 Therapies Weight Bearing: Weight bearing as tolerated Extremity Affected:: Left Lower Physical Therapy: Eval and Treat Occupational Therapy: Eval and Treat Problem/Diagnosis (1) 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: Status: Acute Code(s): M79.2 - Neuralgia and neuritis, unspecified (2) Uncontrolled diabetes mellitus: Status: Acute Allergies/Procedures Done in Hospital Allergies latex Allergy (Verified 08/01/24 13:46) Hives Procedures: - (Chest x-ray/venous duplex/CTA lower extremity/VIRY/lumbar MRI) Type of Care/Length of Stay Estimated LOS: Convalescent Care Less Than 30 days Type of Care Needed: Skilled Rehab Potential: Fair Prognosis: Fair Additional Orders/Day of Discharge Day of Discharge: 08/29/24 Dietary and Speech Recommendations Dietitian Recommendations/Changes: Adjust to cardiac; 1800 calorie controlled/consistent carbohydrate. Will monitor weight trends. Follow Up Care Please follow up with your Primary Care Physician in: 1 week after discharge from SNF Please Follow Up With: Belén Lugo MD When: 1-2 weeks Discharge Plan Admission Admit Date/Time: 08/26/24 20:03 Attending Provider: Nicole Trujillo Primary Care Provider: Zohreh Mckeon [facility] Consulting Providers: Brenda Posadas; Riccardo Ng Discharge Orders/Prescriptions Prescriptions: No Action pantoprazole 40 mg tablet,delayed release (DR/EC) 40 mg PO DAILY aspirin 81 mg Capsule 81 mg PO DAILY clopidogrel 75 mg Tablet 75 mg PO DAILY Qty: 30 0RF Patient Comments: patient stated pretty sure I still take that sacubitril-valsartan [Entresto] 24-26 mg Tablet 1 tab PO BID 30 Days Qty: 60 0RF insulin glargine [Lantus Solostar U-100 Insulin] 100 unit/mL (3 mL) insulin pen 25 unit subcut DAILY insulin lispro 100 unit/mL insulin pen, half-unit 1 sliding scale dose subcut TIDCM Patient Comments: patient does not know sliding scale atorvastatin 80 mg tablet 80 mg PO QHS gabapentin 300 mg Capsule 300 mg PO TID tizanidine 4 mg tablet 4 mg PO 3XD gabapentin 400 mg capsule 400 mg 3XD midodrine 2.5 mg tablet PO PRN furosemide 20 mg tablet 20 mg PO DAILY escitalopram oxalate 20 mg tablet 20 mg PO DAILY sennosides-docusate sodium [Stimulant Laxative Plus] 8.6-50 mg Tablet 2 tab PO BID PRN (Reason: constipation) polyethylene glycol 3350 [Miralax] 17 gram/dose powder 17 g PO BID PRN (Reason: constipation) haloperidol 1 mg tablet 1 mg PO TID Qty: 21 0RF Rx Instructions: for nausea hydrocodone-acetaminophen 5-325 mg tablet 1 tab PO Q6H PRN (Reason: Pain) cholecalciferol (vitamin D3) 1,250 mcg (50,000 unit) tablet 1,250 mcg PO WE DIC 2%/RINKU 6%/LIDOC 2% IN saltsable cream 1 - 2 pump subdermal Q6H PRN (Reason: FOR FEET) spironolactone 25 mg tablet 25 mg PO DAILY 30 Days Qty: 0 0RF ergocalciferol (vitamin D2) [Vitamin D2] 1,250 mcg (50,000 unit) Capsule 1,250 mcg PO We@1000 Qty: 0 0RF carvedilol 3.125 mg tablet 6.25 mg PO BID 30 Days Qty: 0 0RF Rx Instructions: Hold for heart less than 50 or systolic blood pressure less than 100 mmHg. insulin glargine [Lantus Solostar U-100 Insulin] 100 unit/mL (3 mL) insulin pen 20 unit subcut QPM 30 Days Qty: 0 0RF Rx Instructions: Hold if glucose less than 130 mg/dl ondansetron HCl 4 mg tablet 4 mg PO Q8H Qty: 10 0RF Referrals / Follow Up: Zohreh Mckeon, SERVICE DESK DIRECTOR-C [Primary Care Provider] - 08/29/24 0138 <Electronically signed by Nicole Trujillo DO> Cosigner Signature (if applicable): CC: RUTH SERVICE DESK DIRECTORBrian Mckeon; Dr. Riccardo Ng MD; Dr. Brenda Posadas MD ~ [facility] Work Phone: 1(495) 380-627603-27-2025 Progress note Author Nicole Ronnie [facility] Note Date/Time August 28, 2024 6:0 1pm [facility] Medical Records Department [address] [place] [address] Progress Note - Hospitalist 08/28/241754 MR#: [id number] Acct: [id number] Name: TRENTON JACKSON Rep #:[id number] : 1970 54 From: Nicole Trujillo DO PCP: RUTH Lawrence, SERVICE DESK DIRECTOR-C Statu s:ADM IN Location: MS3 IR270-3 Reason for Visit Reason for Visit: Left leg pain Subjective Subjective Patient is complaining of pain however she is falling asleep while watching [employer]. No other issues at this time. Objective Data Objective Data Vital Signs: Vital Signs Temp Pulse Resp BP Pulse Ox O2 Del Method 98.0 F 86 16 91/57 L 94 Room Air 08/28/24 15:25 08/28/24 15:25 08/28/24 15:25 08/28/24 15:25 08/28/24 15:25 08/28/24 15:25 Oxygen Delivery Method Room Air Weight: 79.6 kg Body Mass Index (BMI) 27.4 Intake & Output: Intake and Output for Last 24 Hours 08/26/24 08/27/24 08/28/24 23:59 23:59 23:59 Intake Total 500 / 860 1118.18 / 1118.18 Output Total 900 / 900 Balance 500 / 710 218.18 / 218.18 Lab / Micro Data 08/28/24 06:39 08/28/24 06:39 Labs: Laboratory Results - last 24 hr 08/27/24 20:16: POC Glucose 203 H 08/28/24 05:13: POC Glucose 157 H 08/28/24 06:39: WBC 7.9, RBC 4.21, Hgb 11.7 L, Hct 34.8 L, MCV 82.7, MCH 27.8, MCHC 33.6, RDW Std Deviation 42.4, RDW Coeff of Spencer 14.3, Plt Count 203, MPV 9.8, Immature Gran % (Auto) 0.400, Neut % (Auto) 66.7, Lymph % (Auto) 22.7, Erie% (Auto) 6.7, Eos % (Auto) 3.0, Baso % (Auto) 0.5, Absolute Neuts (auto) 5.2, Absolute Lymphs (auto) 1.79, Nucleated RBC % 0.3, Sodium 135, Potassium 3.8, Chloride 104, Carbon Dioxide 21.5, Anion Gap 10, BUN 19, Creatinine 0.71, Estim Creat Clear Calc 99.53, Est GFR (MDRD) Non-Af 101, BUN/Creatinine Ratio 27.2 H, Glucose 159 H, Calcium 9.1, Phosphorus 2.7, Magnesium 2.1, Total Bilirubin 0.53,AST 20, ALT 11, Alkaline Phosphatase 115 H, Total Protein 6.3, Albumin 3.2 L, Globulin 3.0, Albumin/Globulin Ratio 1.1 08/28/24 11:03: POC Glucose 192 H 08/28/24 16:27: POC Glucose 176 H Physical Exam Const alert, oriented x3 and well nourished; Negative for no apparent distress, average body habitus or healthy appearing Constitutional Narrative: Middle-aged, white female who appears much older than stated age, lying in bed dozing off watching [employer] Doo, appears comfortable, nontoxic HEENT head/scalp atraumatic and moist oral mucous membranes HEENT Narrative: Edentulous Head and Scalp: normocephalic Resp normal respiratory effort, no retractions, no use of accessory muscles and clearto auscultation bilaterally Resp Narrative: Diffusely diminished but clear Auscultation: Negative for rales, rhonchi or wheezes Cardio regular rate, regular rhythm, S1 normal heart sound, S2 normal heart sound, no murmurs, no rub, no gallops and no clicks GI normal to inspection, nondistended, normoactive bowel sounds, soft to palpation and non-tender Neuro oriented x3 and moves all extremities Neuro Narrative: Decree sensation bilateral lower extremities Speech: speech normal Psych Psych Narrative: Is flat and mood seems depressed patient tearful Assessment & Plan Assessment/Plan (1) 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: (2) Uncontrolled diabetes mellitus: PLAN: Plan Intractable left lower extremity pain -Lower extremity Dopplers unremarkable -CTA with runoff shows severe disease however per discussion today with vascularsurgery do not believe this is the etiology of her leg pain as she does have good flow on exam -Heparin drip discontinued -ABIs abnormal but not significantly abnormal to the point any interventions required at this time -Concern for radiculopathy so MRI of the lumbar spine was ordered -Patient does have previous compression fractures -PT/OT following -Case management/SW following and plan is for discharge to skilled facility onceacceptance and pre-CERT is obtained History of compression fractures of L3 and L5 -MRI as noted above Possible esophagitis/chronic GERD -Noted on CT of the abdomen pelvis from previous admission -Continue home PPI once medications have been verified -Will again make outpatient referral to GI at the time of discharge for EGD and colonoscopy It does not appear patient ever followed up after her last discharge-On 07/03/2024 DM-2 -Appears to be uncontrolled as A1c on 02/15/2024 was 9.8 -AM fasting blood sugar was 159 -Will continue 20 units subcu basal insulin at this time and continue to follow -Continue SSI -Accu-Cheks as ordered -Cardiac/carb controlled diet CAD/chronic combined heart failure/chronic hypotension/hyperlipidemia -It appears medication compliance is an issue -Last echocardiogram on 05/04/2023 showed EF of 15% with severe segmental systolic dysfunction-, stage III diastolic dysfunction and moderate eccentric mitral valve insufficiency -Continue home Lasix as patient currently appears euvolemic -Continue aspirin and beta-linda -Await verification of the rest of her medication and then will reinitiate asappropriate Severe peripheral vascular disease -Previous stent about 1 year ago -Vascular surgery is currently following -ABIs abnormal but no acute intervention required -Heparin was able to be discontinued last evening -Continue aspirin/Plavix and statin -has required previous amputations as a result of what appears to be her peripheral vascular disease Depression -Restart home medications as verified Tobacco abuse -Recommend cessation -Nicotine patch if patient desires DVT prophylaxis -Continue enoxaparin 40 daily CODE STATUS -Full code Charges/Coding Visit Charges Inpatient E&M: 73137 Subs Hosp L2 08/28/24 1801 <Electronically signed by Nicole Trujillo DO> Cosigner Signature (if applicable): CC: ~ Signed [facility] Work Phone: 1(804) 810-110803-26-2025 Progress note Author Nicole Trujillo [facility] Note Date/Time August 27, 2024 2:5 8pm [facility] Medical Records Department [address] [place] [address] Progress Note - Hospitalist 08/27/24 0725 MR#: [id number] Acct: [id number] Name: TRENTON JACKSON Rep #:[id number] : 1970 54 From: Nicole Trujillo DO PCP: Zohreh Mckeon, Gideon, SERVICE DESK DIRECTOR-C Statu s:ADM IN Location: ICU CVICU20 2-1 Reason for Visit Reason for Visit: Left leg pain Subjective Subjective Patient is a 54-year-old white female with multiple comorbidities and complianceissues who presented to the emergency department at [facility] on 08/26/2024 with a chief complaint of left lower extremity pain and swelling. Patient reported that she noted that symptoms began Sunday prior to presentationand the pain became severe the night prior to presentation to the point where she was climbing. She indicated this happened to her before but does not recallwhat happened. She did report on presentation that a stent was placed in her leg about a year prior to presentation and that she had amputations previously in her toes but does not recall the reason why. Vital signs on presentation showed temperature of 98, heart rate 113, respiratory rate 23, blood pressure 160/96 and pulse ox was 99% on room air. CBC was unremarkable. Coags were normal. Chemistry panel is unremarkable except marked hyperglycemia with a blood sugar of 315. Lactic acid was normal at 1.5. BNP was ordered and was 1489 but significance is unclear as patient was not having significant respiratory symptoms. Chest x-ray showed no acute cardiopulmonary process. Venous duplex was negative for DVT but did demonstrate right SFA stent occlusion. CTA of the lower extremities with runoff was performed and was technically limited but did discuss severe multilevel disease and vascular surgery was consulted. Given her severe leg pain and inability ambulate she wasadmitted to the intensive care unit as there was concern of severe vascular disease at the time of presentation and placed on heparin drip. Vascular surgery evaluated patient on the a.m. of 08/27/2024 Patient still complaining of significant lower extremity pain on the left side. Seems to be perfusing well. States sleeping is been problematic. Will restart gabapentin to see if this helps. She does have pain medication as needed ordered as well. Objective Data Objective Data Vital Signs: Vital Signs Temp Pulse Resp BP Pulse Ox O2 Del Method 97.6 F L 89 12 124/84 H 98 Room Air 08/27/24 05:00 08/27/24 07:00 08/27/24 07:00 08/27/24 07:00 08/27/24 07:00 08/27/24 07:00 Oxygen Delivery Method Room Air Weight: 78.8 kg Body Mass Index (BMI) 27.1 Intake & Output: Intake and Output for Last 24 Hours 08/25/24 08/26/24 08/27/24 23:59 23:59 23:59 Intake Total 500 / 860 457.83 / 457.83 Output Total 450 / 450 Balance 500 / 710 7.83 / 7.83 Lab / Micro Data 08/27/24 03:15 08/27/24 11:30 Labs: Laboratory Results - last 24 hr 08/26/24 10:55: WBC 7.5, RBC 4.93, Hgb 13.7, Hct 40.6, MCV 82.4, MCH 27.8, MCHC 33.7, RDW Std Deviation 40.2, RDW Coeff of Spencer 13.6, Plt Count 225, MPV 9.1, Immature Gran % (Auto) 0.300, Neut % (Auto) 69.6, Lymph % (Auto) 20.9, Erie % (Auto) 5.7, Eos % (Auto) 2.8, Baso % (Auto) 0.7, Absolute Neuts (auto) 5.2, Absolute Lymphs (auto) 1.57, Nucleated RBC % 0, PT 12.3, INR 0.9, APTT 26.8, Sodium 135, Potassium 3.4, Chloride 102, Carbon Dioxide 22.3, Anion Gap 11, BUN 10, Creatinine 0.74, Estim Creat Clear Calc 97.71, Est GFR (MDRD) Non-Af 97, BUN/Creatinine Ratio 14.1, Glucose 315 H, Lactic Acid 1.5, Calcium 9.2, Total Bilirubin 0.52, Direct Bilirubin 0.08, AST 27, ALT 14, Alkaline Phosphatase 134 H, NT pro BNP II 1489 H, Total Protein 7.0, Albumin 3.6, Globulin 3.4 08/26/24 19:24: PT 12.8, INR 1.0, APTT 26.5 08/26/24 21:22: POC Glucose 193 H 08/27/24 03:15: WBC 8.6, RBC 4.12 L, Hgb 11.6 L, Hct 33.8 L, MCV 82.0, MCH 28.2,MCHC 34.3, RDW Std Deviation 40.4, RDW Coeff of Spencer 13.7, Plt Count 229, MPV 9.2, Immature Gran % (Auto) 0.300, Neut % (Auto) 72.4 H, Lymph % (Auto) 20.6, Erie % (Auto) 4.4, Eos % (Auto) 1.6, Baso % (Auto) 0.7, Absolute Neuts (auto) 6.2, Absolute Lymphs (auto) 1.77, Nucleated RBC % 0, PT 13.2, INR 1.0, APTT 79.3H, Sodium 136, Potassium 2.5 L*, Chloride 102, Carbon Dioxide 23.8, Anion Gap 9,BUN 11, Creatinine 0.65 L, Estim Creat Clear Calc 107.70, Est GFR (MDRD) Non-Af 105, BUN/Creatinine Ratio 16.7, Glucose 293 H, Calcium 8.8, Total Bilirubin 0.61, AST 20, ALT 13, Alkaline Phosphatase 117 H, Total Protein 5.9, Albumin 3.1L, Globulin 2.9, Albumin/Globulin Ratio 1.1, TSH 1.180 Radiography Diagnostic Testing: Radiology Impression Chest X-Ray 08/26/24 10:40 IMPRESSION: No acute cardiopulmonary process. Reading Location: [facility] Venous Doppler Study 08/26/24 10:40 Interpretation Summary Deep veins of the left lower extremity are patent and compressible segmentally. There is no evidence of left lower extremity deep vein thrombosis. The left great saphenous vein appears patent andcompressible segmentally. Incidental finding, right SFA stent occlusion Ordering Physician: Jeison Abrams [facility] Performed By: Héctor Ayoub RVT Lower Extremity CTA 08/26/24 14:00 IMPRESSION: Technically limited study as described. Severe multilevel disease as described level by level above. Interventional radiology consultation may be appropriate. 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 getting pain medication, appears uncomfortable but not toxic HEENT head/scalp atraumatic and moist oral mucous membranes HEENT Narrative: Dentition is poor, Mallampati is 3, no thrush Head and Scalp: normocephalic Resp normal respiratory effort, no retractions, no use of accessory muscles and clearto auscultation bilaterally Resp Narrative: Diffusely diminished but clear Auscultation: Negative for rales, rhonchi or wheezes Cardio regular rate, regular rhythm, S1 normal heart sound, S2 normal heart sound, no murmurs, no rub, no gallops and no clicks GI normal to inspection, nondistended, normoactive bowel sounds, soft to palpation and non-tender Extremity Extremity Narrative: Transmetatarsal amputation left lower extremity, foot is erythematous and warm, dorsalis pedis pulses are faint but present by palpation, cap refill is slightlydelayed, no clubbing or cyanosis, previous amputation of second digit on her right foot noted as well, skin is dry Neuro oriented x3 and moves all extremities Neuro Narrative: Decree sensation bilateral lower extremities Speech: speech normal Psych Psych Narrative: Is flat and mood seems depressed patient tearful Assessment & Plan Assessment/Plan (1) 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: (2) Uncontrolled diabetes mellitus: PLAN: Plan Intractable left lower extremity pain -Lower extremity Dopplers unremarkable -CTA with runoff shows severe disease however per discussion today with vascularsurgery do not believe this is the etiology of her leg pain as she does have good flow on exam -Will continue heparin drip for now per discussion with vascular surgery -ABIs ordered -Concern for radiculopathy so MRI of the lumbar spine was ordered -Patient does have previous compression fractures -PT/OT consultation -Case management/SW consultation for assistance with discharge planning as we dosuspect she may need placement History of compression fractures of L3 and L5 -MRI as noted above Possible esophagitis/chronic GERD -Noted on CT of the abdomen pelvis from previous admission -Continue home PPI once medications have been verified -Will again make outpatient referral to GI at the time of discharge for EGD and colonoscopy It does not appear patient ever followed up after her last discharge-On 07/03/2024 DM-2 -Appears to be uncontrolled as A1c on 02/15/2024 was 9.8 -Continue SSI -Awaiting for verification of home medications -Continue SSI -Accu-Cheks as ordered -Cardiac/carb controlled diet CAD/chronic combined heart failure/chronic hypotension/hyperlipidemia -It appears medication compliance is an issue -Last echocardiogram on 05/04/2023 showed EF of 15% with severe segmental systolic dysfunction-, stage III diastolic dysfunction and moderate eccentric mitral valve insufficiency -Continue home Lasix as patient currently appears euvolemic -Continue aspirin and beta-linda -Await verification of the rest of her medication and then will reinitiate asappropriate Severe peripheral vascular disease -Previous stent about 1 year ago -Vascular surgery is currently following -ABIs are pending -continue heparin drip for now -Continue aspirin and statin -has required previous amputations as a result of what appears to be her peripheral vascular disease Depression -Restart home medications as verified Tobacco abuse -Recommend cessation -Nicotine patch if patient desires DVT prophylaxis -Currently on heparin drip will continue and then transition to subcu enoxaparinif heparin drip able to be discontinued CODE STATUS -Full code Charges/Coding Visit Charges Inpatient E&M: 27131 Subs Hosp L2 08/27/24 1771 <Electronically signed by Nicole Trujillo DO> Cosigner Signature (if applicable): CC: ~ Signed [facility] Work Phone: 1([phone]) 286-630003-26-2025 Consult note Author Riccardo Ng [facility] Note Date/Time August 27, 2024 7:3 3am [facility] Medical Records Department [address] [place] [address] Consultation - Surgical 08/27/24 0705 MR#: [id number] Acct: [id number] Name: TRENTON JACKSON Rep #:[id number] : 1970 54 From: Riccardo Ng MD PCP: Zohreh Mckeon Gideon, SERVICE DESK DIRECTOR-C Statu s:ADM IN Location: ICU CVICU20 2-1 Assessment & Plan Assessment/Plan (1) Peripheral vascular disease, unspecified: PLAN: -CTA images reviewed, has moderate diffuse atherosclerosis without proximal occlusion; non-opacified infrapopliteal vessels -by exam foot is well perfused; pedal pulse exam similar to upon admission -pain also radiates more proximal in leg and to hip/back -would continue heparin for now, obtain VIRY an if satisfactory then could stop -spine imaging, suspect symptoms are neurogenic HPI Consult Data Date of Consult: 08/27/24 HPI Narrative HPI Narrative: TRENTON JACKSON, is a 54 F who presents with left leg/foot pain that began ~5days ago. Initially began with pain while walking/weight bearing. Two nights agobegan hurting all the time, numb from foot to knee, pain radiates to thigh/hip/back. Has difficulty moving at ankle, prior TMA. She had a CTA that demonstrated non-opacification of tibial vessels, unclear if occlusive or contrast timing. She does have history of CHF with severely reduced EF of 15%; last evaluated here in 2022. Also has history of prior lumbar spine fractures; she always walked hunched over due to her back issues. She was placed on heparin upon admission, her pain has continued with no significant change and minimal relief with pain medications. [facility] Medical History ESBL (extended spectrum beta-lactamase) producing bacteria infection Generalized weakness Candidiasis of breast Colitis Debility PTSD (post-traumatic stress disorder) Closed compression fracture of L3 vertebra Hypokalemia Colitis BiPAP (biphasic positive airway pressure) dependence Coronary artery disease L5 vertebral fracture On home oxygen therapy Rheumatoid arthritis Sleep apnea Smoker DVT (deep venous thrombosis) Seizures Amputation toe Psychiatric disorder Ischemic cardiomyopathy Diabetes type 2, uncontrolled Essential hypertension Substance abuse Alcohol abuse Depression Osteoporosis GERD (gastroesophageal reflux disease) Pulmonary embolism Myocardial infarct Pericardial effusion Hypoxemia Acute dyspnea Aftercare following surgery of the circulatory system Hx of fracture of humerus Toe amputee Hyperlipidemia CHF (congestive heart failure) CAD (coronary artery disease), rincon coronary artery Home Medications ?Medication ?Instructions ?Recorded ?Last Taken ?Type aspirin 81 mg capsule 81 mg PO DAILY heart health 08/10/22 02/01/23 History clopidogrel 75 mg tablet 75 mg PO DAILY anti platelet #30 02/03/23 02/13/24 10:00 Rx tabs 75 mg pantoprazole 40 mg tablet,delayed 40 mg PO DAILY reflu x 04/18/23 02/13/24 10:00 History release 40 mg sacubitril 24 mg-valsartan 26 mg 1 tab PO BID 30 days #60 tabs 05/07/23 02/13/24 22:00 Rx tablet (Entresto) 1 TAB atorvastatin 80 mg tablet 80 mg PO QHS cholesterol Unknown History gabapentin 300 mg capsule 300 mg PO TID 12/29/2302/12 08:00 History 300 mg insulin glargine 100 unit/mL (3 40 unit subcut DAILY d m 12/29/23 02/13/24 07:00 History mL) subcutaneous pen (Lantus 40 units Solostar U-100 Insulin) insulin lispro 100 unit/mL 1 sliding scale dose subcut TIDCM 12/29/23 Unknown History subcutaneous half-unit pen DIC 2%/RINKU 6%/LIDOC 2% IN 1 - 2 pump subdermal Q6H MN N FOR 02/14/24 Unknown History saltsable FEET cholecalciferol (vitamin D3) 1,250 1,250 mcg PO WE 05/27 Unknown History mcg (50,000 unit) tablet spironolactone 25 mg tablet 25 mg PO DAILY water pill 30 days 02/17/24 02/13/24 10:00 Rx #0 tabs 12.5 mg carvedilol 3.125 mg tablet 6.25 mg (2 x 3.125 mg) PO B ID 02/19/24 Unknown Rx blood pressure 30 days #0 tabs ergocalciferol (vitamin D2) 1,250 1,250 mcg PO We@1000 #0 caps 02/19/24 Unknown Rx mcg (50,000 unit) capsule (Vitamin D2) insulin glargine 100 unit/mL (3 20 unit (0.2 mL) subcu t QPM 30 02/19/24 02/13/24 22:00 Rx mL) subcutaneous pen (Lantus days #0 mL 24 units Solostar U-100 Insulin) escitalopram oxalate 20 mg tablet 20 mg PO DAILY depre ssion 06/29/24 Unknown History furosemide 20 mg tablet 20 mg PO DAILY water pill Unknown History gabapentin 400 mg capsule 400 mg 3XD 06/29/24 Unknown History midodrine 2.5 mg tablet mg 06/29/24 Unknown History polyethylene glycol 3350 17 17 g PO BID PRN constipati on 06/29/24 Unknown History gram/dose oral powder (Miralax) sennosides 8.6 mg-docusate sodium 2 tab PO BID PRN con stipation 06/29/24 Unknown History 50 mg tablet (Stimulant Laxative Plus) tizanidine 4 mg tablet 4 mg PO 3XD spasm 06/29/24 U nknown History haloperidol 1 mg tablet 1 mg PO TID #21 tabs 5 Unknown Rx ondansetron HCl 4 mg tablet 4 mg PO Q8H nausea #10 tab s 08/01/24 Unknown Rx hydrocodone-acetaminophen 5-325mg 1 tab PO Q6H PRN [place] n 08/26/24 Unknown History 5mg-325mg Allergy/AdvReac Type Severity Reaction Status Date / Time latex Allergy Hives Verified 08/01/24 13:46 Family History Mother Thyroid disorder Diabetes Hypertension Grandmother Diabetes Uncle Diabetes Aunt Diabetes Other Heart disease Surgical History History of cholecystectomy History of appendectomy History of cholecystectomy Social History household members: spouse and children housing: house Smoking Status: Heavy Smoker (>10/day) alcohol intake: never substance use type: marijuana what type of physical activity do you participate in: none do you feel safe at home: Yes ROS Constitutional Constitutional: Denies chills, fever(s), frequent falls, lethargy or weakness Eyes Eyes: Denies blind spots, change in vision or loss of vision ENT HEENT: Denies bleeding gums, hoarseness or sore throat Cardiovascular Cardiovascular: Reports leg edema, numbness in extremities and weakness in extremities; Denies abdominal pain, bluish discoloration of hand/feet, chest pain with activity, claudication, cold extremities, cyanosis, dyspnea on exertion, erythema on extremities, irregular heart rhythm or leg ulcers Respiratory/Chest Respiratory/Chest: Denies cough, excessive phlegm production, shortness of breath at rest, shortness of breath with exertion or wheezing Gastrointestinal Gastrointestinal: Denies anorexia, change in stool character, constipation, diarrhea, melena or rectal bleeding Genitourinary Genitourinary: Denies dysuria or hematuria Musculoskeletal Musculoskeletal: Reports back pain, extremity pain, numbness and radiating pain into limb; Denies abnormal gait Integumentary Integumentary: Denies erythema, non-healing lesions or wounds Neurologic Neurologic: Denies abnormal speech, focal weakness, headache(s), loss of vision,numbness, paresthesias or sensory deficit Hematologic/Lymphatic Hematologic/Lymphatic: Denies easy bleeding, easy bruising or lymphadenopathy Physical Exam Const alert, oriented x3 and no apparent distress; Negative for healthy appearing General Appearance: cooperative and appears older than stated age; Negative for combative or lethargic Orientation / Consciousness: awake Exam Limitations: no limitations HEENT Head and Scalp: normocephalic and atraumatic Eyes EOMs intact bilaterally General Eye: normal appearance of both eyes Neck full ROM General: trachea midline Resp normal respiratory effort and no use of accessory muscles Effort and Inspection: Negative for labored, stridor or audible wheezes Cardio regular rate and regular rhythm Peripheral Pulses: brachial pulses present, radial pulses present, popliteal pulses present right dopplerable and left 1+, posterior tibial pulses present bilateral dopplerable and dorsalis pedis pulses present bilateral dopplerable Back/Spine Cervical Spine: cervical ROM normal Extremity full ROM, normal capillary refill and no clubbing, cyanosis or edema Skin no rashes or lesions noted, no wounds and no mottling Neuro oriented x3 and CN's II-XII intact bilaterally Psych thought process normal, cooperative, affect normal, speech normal and activity/motor behavior normal Speech: normal speech Mood & Affect: tearful Thought Content: normal thought content Attention / Concentration: attention grossly intact and concentration grossly intact Lab / Micro Data 08/27/24 03:15 08/27/24 03:15 Labs: Laboratory Results - last 24 hr 08/26/24 10:55: WBC 7.5, RBC 4.93, Hgb 13.7, Hct 40.6, MCV 82.4, MCH 27.8, MCHC 33.7, RDW Std Deviation 40.2, RDW Coeff of Spencer 13.6, Plt Count 225, MPV 9.1, Immature Gran % (Auto) 0.300, Neut % (Auto) 69.6, Lymph % (Auto) 20.9, Erie % (Auto) 5.7, Eos % (Auto) 2.8, Baso % (Auto) 0.7, Absolute Neuts (auto) 5.2, Absolute Lymphs (auto) 1.57, Nucleated RBC % 0, PT 12.3, INR 0.9, APTT 26.8, Sodium 135, Potassium 3.4, Chloride 102, Carbon Dioxide 22.3, Anion Gap 11, BUN 10, Creatinine 0.74, Estim Creat Clear Calc 97.71, Est GFR (MDRD) Non-Af 97, BUN/Creatinine Ratio 14.1, Glucose 315 H, Lactic Acid 1.5, Calcium 9.2, Total Bilirubin 0.52, Direct Bilirubin 0.08, AST 27, ALT 14, Alkaline Phosphatase 134 H, NT pro BNP II 1489 H, Total Protein 7.0, Albumin 3.6, Globulin 3.4 08/26/24 19:24: PT 12.8, INR 1.0, APTT 26.5 08/26/24 21:22: POC Glucose 193 H 08/27/24 03:15: WBC 8.6, RBC 4.12 L, Hgb 11.6 L, Hct 33.8 L, MCV 82.0, MCH 28.2,MCHC 34.3, RDW Std Deviation 40.4, RDW Coeff of Spencer 13.7, Plt Count 229, MPV 9.2, Immature Gran % (Auto) 0.300, Neut % (Auto) 72.4 H, Lymph % (Auto) 20.6, Erie % (Auto) 4.4, Eos % (Auto) 1.6, Baso % (Auto) 0.7, Absolute Neuts (auto) 6.2, Absolute Lymphs (auto) 1.77, Nucleated RBC % 0, PT 13.2, INR 1.0, APTT 79.3H, Sodium 136, Potassium 2.5 L*, Chloride 102, Carbon Dioxide 23.8, Anion Gap 9,BUN 11, Creatinine 0.65 L, Estim Creat Clear Calc 107.70, Est GFR (MDRD) Non-Af 105, BUN/Creatinine Ratio 16.7, Glucose 293 H, Calcium 8.8, Total Bilirubin 0.61, AST 20, ALT 13, Alkaline Phosphatase 117 H, Total Protein 5.9, Albumin 3.1L, Globulin 2.9, Albumin/Globulin Ratio 1.1, TSH 1.180 Imaging Radiology Impression Chest X-Ray 08/26/24 10:40 IMPRESSION: No acute cardiopulmonary process. Reading Location: [facility] Venous Doppler Study 08/26/24 10:40 Interpretation Summary Deep veins of the left lower extremity are patent and compressible segmentally. There is no evidence of left lower extremity deep vein thrombosis. The left great saphenous vein appears patent andcompressible segmentally. Incidental finding, right SFA stent occlusion Ordering Physician: Jeison Abrams Referring Physician: Nathaly Leonard Performed By: Héctor Ayoub T Lower Extremity CTA 08/26/24 14:00 IMPRESSION: Technically limited study as described. Severe multilevel disease as described level by level above. Interventional radiology consultation may be appropriate. Reading Location: [facility] Charges/Coding Visit Charges Inpatient E&M: 77122 Init Hosp L3 08/27/24 5815 <Electronically signed by Riccardo Ng MD> Cosigner Signature (if applicable): CC: RUTH SERVICE DESK DIRECTORBrian Mckeon~ Signed [facility] Work Phone: 1(606) 646-332003-26-2025 Discharge summary Author Jeison Abrams [facility] Note Date/Time August 27, 2024 7:0 7am [facility] Medical Records Department [address] [place] [address] Emergency Department Summary 08/26/24 MR#: [id number] Acct: [id number] Name: TRENTON JACKSON Rep #:[id number] : 1970 54 From: Jeison Gibson PCP: RUTH Lawrence, SERVICE DESK DIRECTOR-C Statu s:ADM IN Location: ICU CVICU20 2-1 HPI <Dr. Jeison Abrams DO - Last Filed: 08/26/24 15:33> History of Present Illness Chief Complaint: Lower Extremity Injury Informant: patient Narrative Narrative: 54-year-old female presenting to the emergency room with pain and swelling of the left leg. Patient states that she noticed swelling beginning last Sunday and the pain became severe last night to the point where she was crying. Patient states that the last time this happened to her she was admitted into thehospital but does not know what happened. She states that she cannot tell me what medication she is on but that everything in the computer should be correct. She sees Nathaly Hilario for primary care and unfortunately their system does not connect to ours. She does not know if she is on a blood thinner. I have topull the history from her limited though it is. She tells me that she had a stent put in her right leg a year ago. She states that she was admitted for thesame symptoms maybe a year ago. She states that she lost her toes due to athlete's foot. She does not know if she takes a blood thinner. She is unsure of a history of congestive heart failure but states she has heart problems. [facility] <Dr. Jeison Abrams DO - Last Filed: 08/26/24 15:33> [facility] Medical History ESBL (extended spectrum beta-lactamase) producing bacteria infection Generalized weakness Candidiasis of breast Colitis Debility PTSD (post-traumatic stress disorder) Closed compression fracture of L3 vertebra Hypokalemia Colitis BiPAP (biphasic positive airway pressure) dependence Coronary artery disease L5 vertebral fracture On home oxygen therapy Rheumatoid arthritis Sleep apnea Smoker DVT (deep venous thrombosis) Seizures Amputation toe Psychiatric disorder Ischemic cardiomyopathy Diabetes type 2, uncontrolled Essential hypertension Substance abuse Alcohol abuse Depression Osteoporosis GERD (gastroesophageal reflux disease) Pulmonary embolism Myocardial infarct Pericardial effusion Hypoxemia Acute dyspnea Aftercare following surgery of the circulatory system Hx of fracture of humerus Toe amputee Hyperlipidemia CHF (congestive heart failure) CAD (coronary artery disease), rincon coronary artery Home Medications ?Medication ?Instructions ?Recorded ?Last Taken ?Type aspirin 81 mg capsule 81 mg PO DAILY heart health 08/10/22 02/01/23 History clopidogrel 75 mg tablet 75 mg PO DAILY anti platelet #30 02/03/23 02/13/24 10:00 Rx tabs 75 mg pantoprazole 40 mg tablet,delayed 40 mg PO DAILY reflu x 04/18/23 02/13/24 10:00 History release 40 mg sacubitril 24 mg-valsartan 26 mg 1 tab PO BID 30 days #60 tabs 05/07/23 02/13/24 22:00 Rx tablet (Entresto) 1 TAB atorvastatin 80 mg tablet 80 mg PO QHS cholesterol Unknown History gabapentin 300 mg capsule 300 mg PO TID 12/29/2302/12 08:00 History 300 mg insulin glargine 100 unit/mL (3 40 unit subcut DAILY d m 12/29/23 02/13/24 07:00 History mL) subcutaneous pen (Lantus 40 units Solostar U-100 Insulin) insulin lispro 100 unit/mL 1 sliding scale dose subcut TIDCM 12/29/23 Unknown History subcutaneous half-unit pen DIC 2%/RINKU 6%/LIDOC 2% IN 1 - 2 pump subdermal Q6H MN N FOR 02/14/24 Unknown History saltsable FEET cholecalciferol (vitamin D3) 1,250 1,250 mcg PO WE 05/27 Unknown History mcg (50,000 unit) tablet spironolactone 25 mg tablet 25 mg PO DAILY water pill 30 days 02/17/24 02/13/24 10:00 Rx #0 tabs 12.5 mg carvedilol 3.125 mg tablet 6.25 mg (2 x 3.125 mg) PO B ID 02/19/24 Unknown Rx blood pressure 30 days #0 tabs ergocalciferol (vitamin D2) 1,250 1,250 mcg PO We@1000 #0 caps 02/19/24 Unknown Rx mcg (50,000 unit) capsule (Vitamin D2) insulin glargine 100 unit/mL (3 20 unit (0.2 mL) subcu t QPM 30 02/19/24 02/13/24 22:00 Rx mL) subcutaneous pen (Lantus days #0 mL 24 units Solostar U-100 Insulin) escitalopram oxalate 20 mg tablet 20 mg PO DAILY depre ssion 06/29/24 Unknown History furosemide 20 mg tablet 20 mg PO DAILY water pill Unknown History gabapentin 400 mg capsule 400 mg 3XD 06/29/24 Unknown History midodrine 2.5 mg tablet mg 06/29/24 Unknown History polyethylene glycol 3350 17 17 g PO BID PRN constipati on 06/29/24 Unknown History gram/dose oral powder (Miralax) sennosides 8.6 mg-docusate sodium 2 tab PO BID PRN con stipation 06/29/24 Unknown History 50 mg tablet (Stimulant Laxative Plus) tizanidine 4 mg tablet 4 mg PO 3XD spasm 06/29/24 U nknown History haloperidol 1 mg tablet 1 mg PO TID #21 tabs 5 Unknown Rx ondansetron HCl 4 mg tablet 4 mg PO Q8H nausea #10 tab s 08/01/24 Unknown Rx hydrocodone-acetaminophen 5-325mg 1 tab PO Q6H PRN [place] n 08/26/24 Unknown History 5mg-325mg Allergy/AdvReac Type Severity Reaction Status Date / Time latex Allergy Hives Verified 08/01/24 13:46 Family History Mother Thyroid disorder Diabetes Hypertension Grandmother Diabetes Uncle Diabetes Aunt Diabetes Other Heart disease Surgical History History of cholecystectomy History of appendectomy History of cholecystectomy Social History household members: spouse and children housing: house Smoking Status: Heavy Smoker (>10/day) alcohol intake: never substance use type: marijuana what type of physical activity do you participate in: none do you feel safe at home: Yes ROS <Dr. Jeison Abrams DO - Last Filed: 08/26/24 15:33> ROS ED Constitutional Constitutional ED: Denies chills, fever(s) or weight loss Eyes Eyes: Denies change in vision or diplopia ENT ENT ED: Denies ear pain, rhinorrhea or sore throat Cardiovascular Cardiovascular: Denies chest pain, orthopnea, palpitations or racing heartbeat Respiratory/Chest Respiratory/Chest: Denies cough, dyspnea or orthopnea Gastrointestinal Gastrointestinal: Denies abdominal pain, diarrhea, nausea or vomiting Genitourinary Genitourinary ED: Denies dysuria, hematuria or urinary frequency Musculoskeletal Musculoskeletal: Reports other Details: Left leg pain swelling ; Denies arthralgias or myalgias Integumentary Denies abscess or rash Neurologic Neurologic: Denies headache(s) or weakness Psychiatric Psychiatric: Denies anxiety, depression, suicidal ideation or suicidal thoughts Endocrine Endocrinology: Denies polydipsia, polyphagia or polyuria Allergic/Immunologic Allergic/Immunologic ED: Denies mouth swelling, tongue swelling or urticaria EXAM <Dr. Jeison Abrams, DO - Last Filed: 08/26/24 15:33> Physical Exam Narrative Exam Narrative: Patient is intermittently crying. Sometimes she cries while speaking other times she can speak normally. She is moving the left leg Const Vital Signs: 08/26/24 10:08 08/26/24 10:14 08/26/24 11:14 Temperature 98 F 98 F 98 F Temperature Source Oral Oral Oral Pulse Rate 113 H 112 H 98 Respiratory Rate 23 H 23 H 27 H Blood Pressure 168/96 H 168/96 H 141/83 H Blood Pressure Mean 120 120 102 Pulse Ox 99 98 99 Oxygen Delivery Method Room Air Room Air Room Air 08/26/24 12:00 08/26/24 12:07 08/26/24 13:00 Temperature 98 F 98 F Temperature Source Oral Oral Pulse Rate 98 91 Respiratory Rate 30 H 13 Blood Pressure 145/82 H 145/82 H 143/85 H Blood Pressure Mean 103 103 104 Pulse Ox 93 98 Oxygen Delivery Method Room Air Room Air 08/26/24 14:00 08/26/24 14:00 08/26/24 14:00 Temperature 98 F Temperature Source Oral Pulse Rate 99 100 Respiratory Rate 18 14 Blood Pressure 131/92 H 150/112 H 131/92 H Blood Pressure Mean 105 124 105 Pulse Ox 100 97 Oxygen Delivery Method Room Air 08/26/24 15:00 08/26/24 15:56 08/26/24 17:56 Temperature 98 F Temperature Source Oral Pulse Rate 98 Respiratory Rate 16 Blood Pressure 115/87 H 130/86 H 109/68 Blood Pressure Mean 96 100 81 Pulse Ox 98 97 96 Oxygen Delivery Method Room Air Room Air Room Air 08/26/24 19:09 08/26/24 20:00 Temperature 98 F Temperature Source Pulse Rate 97 98 Respiratory Rate 16 Blood Pressure 132/74 H 129/69 H Blood Pressure Mean 93 89 Pulse Ox 97 Oxygen Delivery Method Positive well nourished and well developed General Appearance ED: well developed HEENT Reports normocephalic, head/scalp atraumatic and moist mucous membranes Eyes PERRL and EOMs intact bilaterally Neck no lymphadenopathy, supple and no JVD Resp normal respiratory effort and clear to auscultation bilaterally Cardio regular rate, regular rhythm and no murmurs GI normal to inspection, nondistended, normoactive bowel sounds and non-tender Palpation: soft Back/Spine no CVA tenderness and normal ROM Extremity Extremity Narrative: There is some mild edema of the left leg from the tibial tuberosity inferiorly. There appears to be normal color. The foot is swollen mildly but not celluliticappearing. I do not appreciate any palpable venous cords. The left thigh does not appear swollen. The leg is not white or bluish discoloration. Neuro oriented x3 and CN's II-XII intact bilaterally Sensorium / Orientation: alert Motor Exam: strength 5/5 throughout Psych Mood & Affect: depressed, anxious and tearful Skin no rashes or lesions noted and no wounds <Dr. Vaughn Daugherty, DO - Last Filed: 08/27/24 03:29> Physical Exam Const Vital Signs: 08/26/24 10:08 08/26/24 10:14 08/26/24 11:14 Temperature 98 F 98 F 98 F Temperature Source Oral Oral Oral Pulse Rate 113 H 112 H 98 Respiratory Rate 23 H 23 H 27 H Blood Pressure 168/96 H 168/96 H 141/83 H Blood Pressure Mean 120 120 102 Pulse Ox 99 98 99 Oxygen Delivery Method Room Air Room Air Room Air 08/26/24 12:00 08/26/24 12:07 08/26/24 13:00 Temperature 98 F 98 F Temperature Source Oral Oral Pulse Rate 98 91 Respiratory Rate 30 H 13 Blood Pressure 145/82 H 145/82 H 143/85 H Blood Pressure Mean 103 103 104 Pulse Ox 93 98 Oxygen Delivery Method Room Air Room Air 08/26/24 14:00 08/26/24 14:00 08/26/24 14:00 Temperature 98 F Temperature Source Oral Pulse Rate 99 100 Respiratory Rate 18 14 Blood Pressure 131/92 H 150/112 H 131/92 H Blood Pressure Mean 105 124 105 Pulse Ox 100 97 Oxygen Delivery Method Room Air 08/26/24 15:00 08/26/24 15:56 08/26/24 17:56 Temperature 98 F Temperature Source Oral Pulse Rate 98 Respiratory Rate 16 Blood Pressure 115/87 H 130/86 H 109/68 Blood Pressure Mean 96 100 81 Pulse Ox 98 97 96 Oxygen Delivery Method Room Air Room Air Room Air 08/26/24 19:09 08/26/24 20:00 Temperature 98 F Temperature Source Pulse Rate 97 98 Respiratory Rate 16 Blood Pressure 132/74 H 129/69 H Blood Pressure Mean 93 89 Pulse Ox 97 Oxygen Delivery Method [facility] <Dr. Jeison Abrams, DO - Last Filed: 08/26/24 15:33> [facility] Narrative Medical decision making narrative: Differential diagnosis includes but not limited to DVT lymphedema congestive heart failure peripheral artery disease the next ischemia Patient's white count 7.5 with a hemoglobin of 13.7. Lactic acid is normal at 1.5. BNP is 1489. Duplex ultrasound is negative for DVT. My independent interpretation of the chest x-ray is no acute process. CTA of the leg was obtained and is currently pending. Patient has received pain medication as wellas Lasix. History & Record Review Discussion w/independent historian: Patient Lab Data Attestation: I reviewed the patient's lab results. Labs: Laboratory Results - last 24 hr 08/26/24 08/26/24 10:55 19:24 WBC 7.5 RBC 4.93 Hgb 13.7 Hct 40.6 MCV 82.4 MCH 27.8 MCHC 33.7 RDW Std Deviation 40.2 RDW Coeff of Spencer 13.6 Plt Count 225 MPV 9.1 Immature Gran % (Auto) 0.300 Neut % (Auto) 69.6 Lymph % (Auto) 20.9 Erie % (Auto) 5.7 Eos % (Auto) 2.8 Baso % (Auto) 0.7 Absolute Neuts (auto) 5.2 Absolute Lymphs (auto) 1.57 Nucleated RBC % 0 PT 12.3 12.8 INR 0.9 1.0 APTT 26.8 26.5 Sodium 135 Potassium 3.4 Chloride 102 Carbon Dioxide 22.3 Anion Gap 11 BUN 10 Creatinine 0.74 Estim Creat Clear Calc 97.71 Est GFR (MDRD) Non-Af 97 BUN/Creatinine Ratio 14.1 Glucose 315 H Lactic Acid 1.5 Calcium 9.2 Total Bilirubin 0.52 Direct Bilirubin 0.08 AST 27 ALT 14 Alkaline Phosphatase 134 H NT pro BNP II 1489 H Total Protein 7.0 Albumin 3.6 Globulin 3.4 Radiography Diagnostic Testing: Clinical Impression(s) from Imaging Studies Chest X-Ray 08/26/24 10:40 IMPRESSION: No acute cardiopulmonary process. Reading Location: [facility] Venous Doppler Study 08/26/24 10:40 Interpretation Summary Deep veins of the left lower extremity are patent and compressible segmentally. There is no evidence of left lower extremity deep vein thrombosis. The left great saphenous vein appears patent andcompressible segmentally. Incidental finding, right SFA stent occlusion Ordering Physician: Jeison Abrams Referring Physician: Nathaly Lainez [facility] Performed By: Héctor Ayoub, RVT Lower Extremity CTA 08/26/24 14:00 IMPRESSION: Technically limited study as described. Severe multilevel disease as described level by level above. Interventional radiology consultation may be appropriate. Reading Location: [facility] <Dr. Vaughn Louise-Frantz, DO - Last Filed: 08/27/24 03:29> [facility] Narrative Medical decision making narrative: Differential diagnosis includes but not limited to DVT lymphedema congestive heart failure peripheral artery disease the next ischemia Patient's white count 7.5 with a hemoglobin of 13.7. Lactic acid is normal at 1.5. BNP is 1489. Duplex ultrasound is negative for DVT. My independent interpretation of the chest x-ray is no acute process. CTA of the leg was obtained and is currently pending. Patient has received pain medication as wellas Lasix. Dr. Daugherty: Patient was signed out to me by day provider. At the time of signout patient CTA of her left leg was pending. On evaluation of the patient, she is in intractable pain of the left lower extremity. She states that she cannot take care of herself at home. Morphine ordered. CTA of the extremity shows severe multilevel disease. Patient was updated of the results. Again on evaluation, she is in intractable pain. Left lower extremity has mild swelling and pitting edema compared to the right. Compartments soft. Normal color. Foot is partially amputated. Pulses difficult to palpate therefore Doppler used. Patient has dopplerable DT and PT pulses. Given patient's intractable pain, inability to take care of herself/ambulate, and severe multilevel disease patient will warrant admission. Patient is in agreement to the plan. I spoke with the hospitalist service Dr. Posadas. On her chart review, patient has seen Dr. Ng in the past. She will call him for further recommendation. Patient accepted to the PCU. Dr. Posadas recontacted me. Recommendation was to start heparin drip from vascular surgery. Plan is for possible surgery/amputation tomorrow. Patient will be placed in the ICU per vascular recommendations. Impression: 1. Intractable left lower extremity pain 2. PVD 3. CHF Lab Data Labs: Laboratory Results - last 24 hr 08/26/24 08/26/24 10:55 19:24 WBC 7.5 RBC 4.93 Hgb 13.7 Hct 40.6 MCV 82.4 MCH 27.8 MCHC 33.7 RDW Std Deviation 40.2 RDW Coeff of Spencer 13.6 Plt Count 225 MPV 9.1 Immature Gran % (Auto) 0.300 Neut % (Auto) 69.6 Lymph % (Auto) 20.9 Erie % (Auto) 5.7 Eos % (Auto) 2.8 Baso % (Auto) 0.7 Absolute Neuts (auto) 5.2 Absolute Lymphs (auto) 1.57 Nucleated RBC % 0 PT 12.3 12.8 INR 0.9 1.0 APTT 26.8 26.5 Sodium 135 Potassium 3.4 Chloride 102 Carbon Dioxide 22.3 Anion Gap 11 BUN 10 Creatinine 0.74 Estim Creat Clear Calc 97.71 Est GFR (MDRD) Non-Af 97 BUN/Creatinine Ratio 14.1 Glucose 315 H Lactic Acid 1.5 Calcium 9.2 Total Bilirubin 0.52 Direct Bilirubin 0.08 AST 27 ALT 14 Alkaline Phosphatase 134 H NT pro BNP II 1489 H Total Protein 7.0 Albumin 3.6 Globulin 3.4 Radiography Diagnostic Testing: Clinical Impression(s) from Imaging Studies Chest X-Ray 08/26/24 10:40 IMPRESSION: No acute cardiopulmonary process. Reading Location: [facility] Venous Doppler Study 08/26/24 10:40 Interpretation Summary Deep veins of the left lower extremity are patent and compressible segmentally. There is no evidence of left lower extremity deep vein thrombosis. The left great saphenous vein appears patent andcompressible segmentally. Incidental finding, right SFA stent occlusion Ordering Physician: Jeison Abrams Referring Physician: Nathaly Lainez [facility] Performed By: Héctor Ayoub RVT Lower Extremity CTA 08/26/24 14:00 IMPRESSION: Technically limited study as described. Severe multilevel disease as described level by level above. Interventional radiology consultation may be appropriate. Reading Location: [place] [address] Discharge Plan Disposition Disposition: Acute Care Hospital [facility] Discharge Date/Time: 08/26/24 20:14 What to do if you have Problems For any increased pain, shortness of breath, bleeding, nausea or vomiting, chestpain, or any unexpected problems, contact your Primary Care Provider. Call [facility] ([phone]) or report to the closest Emergency Room. Call 911 if necessary. 08/27/24 0707 <Electronically signed by Jeison Abrams DO> Cosigner Signature (if applicable): 08/27/24 0329 <Electronically signed by Vaughn Daugherty DO> CC: RUTH SERVICE DESK DIRECTOR-C Zohreh Mckeon ~ Signed [facility] Work Phone: [phone] History and physical note Author Brenda Posadas [facility] Note Date/Time August 26, 2024 8:1 8pm [facility] Medical Records Department [address] [place] [address] H&P Exam - Hospitalist 08/26/242002 MR#: [id number] Acct: [id number] Name: TRENTON JACKSON Rep #:[id number] : 1970 54 From: Brenda Posadas MD PCP: RUTH Lawrence, SERVICE DESK DIRECTORBrian Statu s:ADM IN Location: ICU CVICU20 2-1 HPI - General General Date of Admission: 08/26/24 Date of Service: 08/26/24 Chief Complaint: Left lower extremity pain HPI Narrative TRENTON JACKSON, is a 54-year-old female with history of coronary artery disease, combined heart failure, hypertension, diabetes presented to [facility] ED 08/26/2024 due to pain and swelling of her left leg. She noticed swelling that started Sunday and the pain became so severe that it droveher to tears last night. She has had this happen before but does not know what happened the last time she was admitted for it but it does seem that this happened and she required stenting in her right leg. In the ED patient's labs remarkable for glucose of 315 and a BNP of 1486 (chest x-ray with no edema or acute process) but otherwise unremarkable, lower extremity negative for DVT but a lower extremity CTA demonstrated severe right- sided disease and severe left-sided disease with critical stenosis noted segmentally along the infragenicular popliteal artery with severe disease at the bifurcation and additionally anterior tibial artery appears moderately to severely diseased, the more distal aspect is not contrast opacified which may be due to obstructing disease and/or bolus timing. Patient with severe pain and unable to ambulate or control pain so hospitalist contacted for admission. Patient evaluated at bedside and reports that she has had the pain and swelling the left lower extremity since Sunday that has been constant and last night she suddenly had such severe pain that she can hardly stand it, notes her foot is numb but she is feeling nauseousthough she has not eaten, denies any right leg symptoms or other new or acute complaints. Reports she has been taking her medicine but had not taken it yet this a.m. patient unable to tell me what her home medications are he says she just takes what she is prescribed and is not sure what is what [facility] Medical History ESBL (extended spectrum beta-lactamase) producing bacteria infection Generalized weakness Candidiasis of breast Colitis Debility PTSD (post-traumatic stress disorder) Closed compression fracture of L3 vertebra Hypokalemia Colitis BiPAP (biphasic positive airway pressure) dependence Coronary artery disease L5 vertebral fracture On home oxygen therapy Rheumatoid arthritis Sleep apnea Smoker DVT (deep venous thrombosis) Seizures Amputation toe Psychiatric disorder Ischemic cardiomyopathy Diabetes type 2, uncontrolled Essential hypertension Substance abuse Alcohol abuse Depression Osteoporosis GERD (gastroesophageal reflux disease) Pulmonary embolism Myocardial infarct Pericardial effusion Hypoxemia Acute dyspnea Aftercare following surgery of the circulatory system Hx of fracture of humerus Toe amputee Hyperlipidemia CHF (congestive heart failure) CAD (coronary artery disease), rincon coronary artery Home Medications ?Medication ?Instructions ?Recorded ?Last Taken ?Type aspirin 81 mg capsule 81 mg PO DAILY heart health 08/10/22 02/01/23 History clopidogrel 75 mg tablet 75 mg PO DAILY anti platelet #30 02/03/23 02/13/24 10:00 Rx tabs 75 mg pantoprazole 40 mg tablet,delayed 40 mg PO DAILY reflu x 04/18/23 02/13/24 10:00 History release 40 mg sacubitril 24 mg-valsartan 26 mg 1 tab PO BID 30 days #60 tabs 05/07/23 02/13/24 22:00 Rx tablet (Entresto) 1 TAB atorvastatin 80 mg tablet 80 mg PO QHS cholesterol Unknown History gabapentin 300 mg capsule 300 mg PO TID 12/29/2302/12 08:00 History 300 mg insulin glargine 100 unit/mL (3 40 unit subcut DAILY d m 12/29/23 02/13/24 07:00 History mL) subcutaneous pen (Lantus 40 units Solostar U-100 Insulin) insulin lispro 100 unit/mL 1 sliding scale dose subcut TIDCM 12/29/23 Unknown History subcutaneous half-unit pen DIC 2%/RINKU 6%/LIDOC 2% IN 1 - 2 pump subdermal Q6H MN N FOR 02/14/24 Unknown History saltsable FEET cholecalciferol (vitamin D3) 1,250 1,250 mcg PO WE 05/27 Unknown History mcg (50,000 unit) tablet spironolactone 25 mg tablet 25 mg PO DAILY water pill 30 days 02/17/24 02/13/24 10:00 Rx #0 tabs 12.5 mg carvedilol 3.125 mg tablet 6.25 mg (2 x 3.125 mg) PO B ID 02/19/24 Unknown Rx blood pressure 30 days #0 tabs ergocalciferol (vitamin D2) 1,250 1,250 mcg PO We@1000 #0 caps 02/19/24 Unknown Rx mcg (50,000 unit) capsule (Vitamin D2) insulin glargine 100 unit/mL (3 20 unit (0.2 mL) subcu t QPM 30 02/19/24 02/13/24 22:00 Rx mL) subcutaneous pen (Lantus days #0 mL 24 units Solostar U-100 Insulin) escitalopram oxalate 20 mg tablet 20 mg PO DAILY depre ssion 06/29/24 Unknown History furosemide 20 mg tablet 20 mg PO DAILY water pill Unknown History gabapentin 400 mg capsule 400 mg 3XD 06/29/24 Unknown History midodrine 2.5 mg tablet mg 06/29/24 Unknown History polyethylene glycol 3350 17 17 g PO BID PRN constipati on 06/29/24 Unknown History gram/dose oral powder (Miralax) sennosides 8.6 mg-docusate sodium 2 tab PO BID PRN con stipation 06/29/24 Unknown History 50 mg tablet (Stimulant Laxative Plus) tizanidine 4 mg tablet 4 mg PO 3XD spasm 06/29/24 U nknown History haloperidol 1 mg tablet 1 mg PO TID #21 tabs 07/03/ 5 Unknown Rx ondansetron HCl 4 mg tablet 4 mg PO Q8H nausea #10 tab s 08/01/24 Unknown Rx hydrocodone-acetaminophen 5-325mg 1 tab PO Q6H PRN [place] 08/26/24 Unknown History 5mg-325mg Allergy/AdvReac Type Severity Reaction Status Date / Time latex Allergy Hives Verified 08/01/24 13:46 Family History Mother Thyroid disorder Diabetes Hypertension Grandmother Diabetes Uncle Diabetes Aunt Diabetes Other Heart disease Surgical History History of cholecystectomy History of appendectomy History of cholecystectomy Social History household members: spouse and children housing: house Smoking Status: Heavy Smoker (>10/day) alcohol intake: never substance use type: marijuana what type of physical activity do you participate in: none do you feel safe at home: Yes ROS ROS Narrative General: Denies fever/chills HENT: Denies acute headache, denies stuffy nose, denies sore throat EYES: Denies changes in vision Resp: Denies cough, denies shortness of breath Cardiac: Denies chest pain GI: Denies abdominal pain, denies changes in bowel, has some nausea : Denies changes in urination Extremity: Swelling in left lower extremity MSK: Left lower extremity swelling Neuro: Numbness in left lower extremity Heme: Denies any bleeding or bruising Skin: Denies rashes Psychiatric: Patient anxious Vital Signs Vital Signs Vital Signs: 08/26/24 10:08 08/26/24 10:14 08/26/24 11:14 Temperature 98 F 98 F 98 F Temperature Source Oral Oral Oral Pulse Rate 113 H 112 H 98 Respiratory Rate 23 H 23 H 27 H Blood Pressure 168/96 H 168/96 H 141/83 H Blood Pressure Mean 120 120 102 Pulse Ox 99 98 99 Oxygen Delivery Method Room Air Room Air Room Air 08/26/24 12:00 08/26/24 12:07 08/26/24 13:00 Temperature 98 F 98 F Temperature Source Oral Oral Pulse Rate 98 91 Respiratory Rate 30 H 13 Blood Pressure 145/82 H 145/82 H 143/85 H Blood Pressure Mean 103 103 104 Pulse Ox 93 98 Oxygen Delivery Method Room Air Room Air 08/26/24 14:00 08/26/24 14:00 08/26/24 14:00 Temperature 98 F Temperature Source Oral Pulse Rate 99 100 Respiratory Rate 18 14 Blood Pressure 131/92 H 150/112 H 131/92 H Blood Pressure Mean 105 124 105 Pulse Ox 100 97 Oxygen Delivery Method Room Air 08/26/24 15:00 08/26/24 15:56 08/26/24 17:56 Temperature 98 F Temperature Source Oral Pulse Rate 98 Respiratory Rate 16 Blood Pressure 115/87 H 130/86 H 109/68 Blood Pressure Mean 96 100 81 Pulse Ox 98 97 96 Oxygen Delivery Method Room Air Room Air Room Air 08/26/24 19:09 08/26/24 20:00 Temperature 98 F Temperature Source Pulse Rate 97 98 Respiratory Rate 16 Blood Pressure 132/74 H 129/69 H Blood Pressure Mean 93 89 Pulse Ox 97 Oxygen Delivery Method Weight Weight: 83.6 kg Body Mass Index (BMI) 28.8 Physical Exam Narrative General: Awake, answers questions but is very distressed HEENT: Atraumatic, normocephalic Eyes: Anicteric, normal conjunctiva, extraocular movements grossly intact Neck: Supple Respiratory: Clear to auscultation bilaterally, normal respiratory effort Cardiovascular: Regular rate and rhythm GI: Soft, nontender, nondistended Extremities: Some left lower extremity edema Musculoskeletal: Left lower extremity cool compared to right, does have DP pulseand faint TP pulse Neuro: Left foot with decreased sensation Skin: Some light excoriation appearance on lower extremities Psych: Tearful and anxious Results Lab / Micro Data 08/26/24 10:55 08/26/24 10:55 Labs: Laboratory Results - last 24 hr 08/26/24 10:55: WBC 7.5, RBC 4.93, Hgb 13.7, Hct 40.6, MCV 82.4, MCH 27.8, MCHC 33.7, RDW Std Deviation 40.2, RDW Coeff of Spencer 13.6, Plt Count 225, MPV 9.1, Immature Gran % (Auto) 0.300, Neut % (Auto) 69.6, Lymph % (Auto) 20.9, [place] % (Auto) 5.7, Eos % (Auto) 2.8, Baso % (Auto) 0.7, Absolute Neuts (auto) 5.2, Absolute Lymphs (auto) 1.57, Nucleated RBC % 0, PT 12.3, INR 0.9, APTT 26.8, Sodium 135, Potassium 3.4, Chloride 102, Carbon Dioxide 22.3, Anion Gap 11, BUN 10, Creatinine 0.74, Estim Creat Clear Calc 97.71, Est GFR (MDRD) Non-Af 97, BUN/Creatinine Ratio 14.1, Glucose 315 H, Lactic Acid 1.5, Calcium 9.2, Total Bilirubin 0.52, Direct Bilirubin 0.08, AST 27, ALT 14, Alkaline Phosphatase 134 H, NT pro BNP II 1489 H, Total Protein 7.0, Albumin 3.6, Globulin 3.4 08/26/24 19:24: PT 12.8, INR 1.0, APTT 26.5 Imaging Radiology Impression Chest X-Ray 08/26/24 10:40 IMPRESSION: No acute cardiopulmonary process. Reading Location: [facility] Venous Doppler Study 08/26/24 10:40 Interpretation Summary Deep veins of the left lower extremity are patent and compressible segmentally. There is no evidence of left lower extremity deep vein thrombosis. The left great saphenous vein appears patent andcompressible segmentally. Incidental finding, right SFA stent occlusion Ordering Physician: Jeison Abrams Referring Physician: Nathaly Lainez [facility] Performed By: Héctor Ayoub, RVT Lower Extremity CTA 08/26/24 14:00 IMPRESSION: Technically limited study as described. Severe multilevel disease as described level by level above. Interventional radiology consultation may be appropriate. Reading Location: [facility] Assessment & Plan Assessment/Plan (1) Acute pain of left lower extremity: PLAN: Plan # Left lower extremity pain -Lower extremity negative for DVT but a lower extremity CTA demonstrated severe right-sided disease and severe left-sided disease with critical stenosis noted segmentally along the infragenicular popliteal artery with severe disease at thebifurcation and additionally anterior tibial artery appears moderately to severely diseased, the more distal aspect is not contrast opacified which may bedue to obstructing disease and/or bolus timing -Discussed with vascular surgery, appears to be smaller vessel and ischemic without overt appearing embolic source, recommended heparin drip and n.p.o. at midnight -Patient unsure what medication she takes, will have patient on aspirin and statin, she is unsure if she takes Plavix I do not see where this has been filled so we will continue the aspirin, heparin, statin # Chronic combined heart failure -Last echo 05/04/2023 showed EF 15% with stage III diastolic dysfunction -Do not see where patient has been filling Lasix, will need to attempt to get updated medication list but most recently been filling Lasix 20 mg, will continue this -Appears euvolemic -Daily weights -I's and O's -Not in acute exacerbation, very mild increase in BNP however patient with no increased shortness of breath, denies any increase in swelling bilaterally, chest x-ray without any congestion #Type 2 diabetes mellitus -Glucose checks and sliding scale insulin -Again did not see her patient has filled medications in the last 30 days so unclear diabetes regimen, starting sliding scale insulin, will likely need scheduled but will need to see needs # History of coronary artery disease -Aspirin, statin, beta-linda with holding parameters #Tobacco use -Advise cessation -Nicotine replacement available if desired #GERD -Continue PPI #DVT ppx: Heparin drip Brenad Posadas MD Time spent in the patient's overall evaluation, decision-making process, review of diagnostic data, adjustment of management, discussion with other providers, nursing and ancillary staff involved in patient's care documentation, 76 Minutes Charges/Coding Visit Charges Inpatient E&M: 86736 Init Hosp L3 08/26/242017 <Electronically signed by Brenda Posadas MD> Cosigner Signature (if applicable): CC: RUTH SERVICE DESK DIRECTORBrian Mckeon; Dr. Brenda Posadas MD~ Signed [facility] Work Phone: 1(256) 909-514103-25-2025 Evaluation note* Diagnosis Onset Date Resolution Status Admit Date 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 acute August 26, 2024 8:03pm Peripheral vascular disease, unspecified acute August 26, 2024 8:03pm Uncontrolled diabetes mellitus acute August 26, 2024 8:03pm Acute pain of left lower extremity resolved August 26, 2024 8:03pm Emphysematous cystitis resolved Ap 2024 7:01pm Intractable nausea and vomiting reso lved September 09, 2024 7:01pm [facility] Work Phone: 1(138) 940-954603-25-2025 Radiology Diagnostic study [facility]03-25-2025 Radiology Diagnostic study [facility]01-30-2025 [facility]01-26-2025 Evaluation note* Diagnosis Onset Date Resolution Status Admit Date UTI (urinary tract infection) acute June 29, 2024 8:31pm Colitis deleted June 29, 2024 8:31pm Dehydration resolved June 29, 2024 8:31pm Sepsis due to gram-negative UTI deleted June 29 8:31pm Acute pain of left lower extremity acute August 26, 2024 8:03pm 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 acute August 262024 8:03pm Peripheral vascular disease, unspecified acute August 26, 2024 8:03pm Uncontrolled diabetes mellitus acute August 26, 2024 8:03pm [facility] Work Phone: 1(213) 389-656201-26-2025 Evaluation note* Diagnosis Onset Date Resolution Status Admit Date UTI (urinary tract infection) acute June 29, 2024 8:31pm Colitis deleted June 29, 2024 8:31pm Dehydration resolved June 29, 2024 8:31pm Sepsis due to gram-negative UTI deleted June 29 8:31pm Acute pain of left lower extremity acute August 26, 2024 8:03pm 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 acute August 262024 8:03pm Peripheral vascular disease, unspecified acute August 26, 2024 8:03pm Uncontrolled diabetes mellitus acute August 26, 2024 8:03pm Intractable nausea and vomiting acute September 07, 2024 9:35pm [facility] Work Phone: 1(669) 349-463101-26-2025 Evaluation note* Diagnosis Onset Date Resolution Status Admit Date UTI (urinary tract infection) acute June 29, 2024 8:31pm Colitis deleted June 29, 2024 8:31pm Dehydration resolved June 29, 2024 8:31pm Sepsis due to gram-negative UTI deleted June 29 8:31pm 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 acute August 262024 8:03pm Peripheral vascular disease, unspecified acute August 26, 2024 8:03pm Uncontrolled diabetes mellitus acute August 26, 2024 8:03pm Acute pain of left lower extremity resolved August 26, 2024 8:03pm Emphysematous cystitis acute Ap ril 2024 7:01pm Intractable nausea and vomiting acute September 09, 2024 7:01pm [facility] Work Phone: 1(146) 587-585901-26-2025 Evaluation note* Diagnosis Onset Date Resolution Status Admit Date UTI (urinary tract infection) acute June 29, 2024 8:31pm Colitis deleted June 29, 2024 8:31pm Dehydration resolved June 29, 2024 8:31pm Sepsis due to gram-negative UTI deleted June 29 8:31pm 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 acute August 262024 8:03pm Peripheral vascular disease, unspecified acute August 26, 2024 8:03pm Uncontrolled diabetes mellitus acute August 26, 2024 8:03pm Acute pain of left lower extremity resolved August 26, 2024 8:03pm Emphysematous cystitis resolved Ap ril 2024 7:01pm Intractable nausea and vomiting resolved September 09, 2024 7:01pm [facility] Work Phone: 1(534) 112-174612-21-2024 Hospital Discharge instructions Patient Education 05/23/2024 23:02:36 Vomiting and Diarrhea, Nonspecific (Adult) Nonspecific Vomiting and Diarrhea (Adult) Vomiting and diarrhea can have many causes, including: Helping your body get rid of harmful substances Gastroenteritis caused by viruses, parasites, bacteria, or toxins. Allergy to or side effect of a food or medicine Severe stress or worry (anxiety) Other illnesses It is often hard to pinpoint an exact cause, even with testing. Vomiting and diarrhea often go awaywithin a day or two without problems. If they continue, though, they can lead to too much loss of fluid (dehydration). This can be serious if not treated. Home care Medicines You may use acetaminophen or NSAID medicines like ibuprofen or naproxen to control fever, unless another medicine was prescribed. If you have chronic liver or kidney disease, talk with your healthcare provider before using these medicines. Also talk with your provider if you've had a stomach ulcer or gastrointestinal bleeding. Don't give aspirin to anyone under 18 years of age who is ill with a fever because it may cause severe disease or . Don't use NSAID medicines if you are already taking one for another condition (like arthritis) or are on aspirin (such as for heart disease or after a stroke) [id number] medicines for diarrhea, nausea, and vomiting are generally OK unless you have bleeding, fever, or severe abdominal pain. General care If symptoms are severe, rest at home for the next 24 hours, or until you are feeling better. Washing your hands with soap and water, or using alcohol-based hand project manager finance is the best way to stop the spread of infection. Wash your hands after touching anyone who is sick. Wash your hands after using the toilet and before meals. Clean the toilet after each use. Dry your hands with a single use towel. Caffeine, tobacco, and alcohol can make the diarrhea, cramping, and pain worse. Remember, caffeine not only is in coffee, but also is in chocolate, some energy drinks, and teas. Diet Water and clear liquids are important so you don't get dehydrated. Drink a small amount at a time. Don't guzzle down the drinks. That may increase your nausea, make cramping worse, and cause the drinks to come back up. Sports drinks may also help if you are healthy and not too dehydrated. They have too much sugar andnot enough electrolytes and can sometimes make things worse. Also, don't drink beverages that are too acidic, like orange juice and grape juice. If you are very dehydrated, commercially available products called oral rehydration solutions are best. Food Don't force yourself to eat, especially if you have cramps, diarrhea, or vomiting. Eat just a little at a time, and then wait a few minutes before you try to eat more. Don't eat fatty, greasy, spicy, or fried foods. Don't eat dairy products if you have diarrhea. They can make it worse. During the first 24 hours (the first full day), follow the diet below: Beverages: Oral rehydration solutions, sports drinks, soft drinks without caffeine, mineral water, and decaffeinated tea and coffee Soups: Clear broth, consomm , and bouillon Desserts: Plain gelatin, popsicles, and fruit juice bars During the next 24 hours (the second day), you may add the following to the above if you are better. If not, continue what you did the first day: Hot cereal, plain toast, bread, rolls, crackers Plain noodles, rice, mashed potatoes, chicken noodle or rice soup Unsweetened canned fruit (avoid pineapple), bananas Limit fat intake to less than 15 grams per day by avoiding margarine, butter, oils, mayonnaise, sauces, gravies, fried foods, peanut butter, meat, poultry, and fish. Limit fiber. Avoid raw or cooked vegetables, fresh fruits (except bananas) and bran cereals. Limit caffeine and chocolate. No spices or seasonings except salt. During the next 24 hours: Gradually resume a normal diet, as you feel better and your symptoms improve. If at any time your symptoms start getting worse again, go back to clear liquids until you feel better. Food preparation If you have diarrhea, you should not prepare food for others. When preparing foods, wash your handsbefore and after. Wash your hands or use alcohol-based project manager finance after using cutting boards, countertops, and knives that have been in contact with raw food. Dry your hands with a single use towel. Keep uncooked meats away from cooked and [id number]-dm-tzd foods. Follow-up care Follow up with your healthcare provider, or as advised. Call if you don't get better in the next 2 to 3 days. If a stool (diarrhea) sample was taken, or cultures done, you will be told if they are positive, or if your treatment needs to be changed. You may call as directed for the results. If X-rays were taken, you will be notified of any new findings that may affect your care Call 911 Call 911 if any of these occur: Trouble breathing Chest pain Confusion Severe drowsiness or trouble awakening Fainting or loss of consciousness Rapid heart rate Seizure Stiff neck Severe weakness, dizziness, or lightheadedness When to seek medical advice Call your healthcare provider right away if any of these occur: Bloody or black vomit or stools Severe, steady abdominal pain or any abdominal pain that is getting worse Severe headache or stiff neck An inability to hold down even sips of liquids for more than 12 hours Vomiting that lasts more than 24 hours Diarrhea that lasts more than 24 hours Fever of 100.4 F (38.0 C) or higher, or as directed by your healthcare provider Yellowish color to your skin or the whites of your eyes Signs of dehydration, such as dry mouth, little urine (less than every 6 hours), or very dark urine [id number] [employer]. [address] [place] [address]. All rights reserved. This information is not intended as a substitute for professional medical care. Always follow yourhealthcare professional's instructions. Follow Up Care 05/23/2024 19:13:17 With:BRITTANEY PEARSON MD Address: [address] [place] [address] [phone]- When:2-4 days [facility] 12-20-2024 Note Discharge Instructions Thank you for allowing [place] to assist you with your healthcare needs. The following is importantdischarge information regarding your hospital visit. Diagnosis from Today's Visit Vomiting What to Do Next Instructions from Your Care Team No qualifying data available. Post Acute Orders No qualifying data available. You Need to Schedule the Following Appointments Follow Up with BRITTANEY PEARSON MD When:Within 2-4 days Where:[address] [place] [address] [id number] Allergies Latex Medications Please ask your primary doctor or pharmacist before taking any other medication not listed, including over the counter drugs, herbal medications, vitamins and or supplements as they may interact withyour home medications. What How Much When Instructions Last Dose New ondansetron (Zofran 4 mg oral tablet) 1 tab(s) by mouth Every 8 hours Duration: 5 Days Printed Prescription Please take this list to your next doctor s visit. Bring all medications you take, including over the counter medications, herbals and other supplements with you to your doctor s visit. Patients and families are reminded to discard old lists and to update any records with all medication providers or retail pharmacies. Education Materials Nonspecific Vomiting and Diarrhea (Adult) Vomiting and diarrhea can have many causes, including: Helping your body get rid of harmful substances Gastroenteritis caused by viruses, parasites, bacteria, or toxins. Allergy to or side effect of a food or medicine Severe stress or worry (anxiety) Other illnesses It is often hard to pinpoint an exact cause, even with testing. Vomiting and diarrhea often go awaywithin a day or two without problems. If they continue, though, they can lead to too much loss of fluid (dehydration). This can be serious if not treated. Home care Medicines You may use acetaminophen or NSAID medicines like ibuprofen or naproxen to control fever, unless another medicine was prescribed. If you have chronic liver or kidney disease, talk with your healthcare provider before using these medicines. Also talk with your provider if you've had a stomach ulcer or gastrointestinal bleeding. Don't give aspirin to anyone under 18 years of age who is ill with a fever because it may cause severe disease or . Don't use NSAID medicines if you are already taking one for another condition (like arthritis) or are on aspirin (such as for heart disease or after a stroke) Qsny-glw-bsgkdtx medicines for diarrhea, nausea, and vomiting are generally OK unless you have bleeding, fever, or severe abdominal pain. General care If symptoms are severe, rest at home for the next 24 hours, or until you are feeling better. Washing your hands with soap and water, or using alcohol-based hand project manager finance is the best way to stop the spread of infection. Wash your hands after touching anyone who is sick. Wash your hands after using the toilet and before meals. Clean the toilet after each use. Dry your hands with a single use towel. Caffeine, tobacco, and alcohol can make the diarrhea, cramping, and pain worse. Remember, caffeine not only is in coffee, but also is in chocolate, some energy drinks, and teas. Diet Water and clear liquids are important so you don't get dehydrated. Drink a small amount at a time. Don't guzzle down the drinks. That may increase your nausea, make cramping worse, and cause the drinks to come back up. Sports drinks may also help if you are healthy and not too dehydrated. They have too much sugar andnot enough electrolytes and can sometimes make things worse. Also, don't drink beverages that are too acidic, like orange juice and grape juice. If you are very dehydrated, commercially available products called oral rehydration solutions are best. Food Don't force yourself to eat, especially if you have cramps, diarrhea, or vomiting. Eat just a little at a time, and then wait a few minutes before you try to eat more. Don't eat fatty, greasy, spicy, or fried foods. Don't eat dairy products if you have diarrhea. They can make it worse. During the first 24 hours (the first full day), follow the diet below: Beverages: Oral rehydration solutions, sports drinks, soft drinks without caffeine, mineral water, and decaffeinated tea and coffee Soups: Clear broth, consomm , and bouillon Desserts: Plain gelatin, popsicles, and fruit juice bars During the next 24 hours (the second day), you may add the following to the above if you are better. If not, continue what you did the first day: Hot cereal, plain toast, bread, rolls, crackers Plain noodles, rice, mashed potatoes, chicken noodle or rice soup Unsweetened canned fruit (avoid pineapple), bananas Limit fat intake to less than 15 grams per day by avoiding margarine, butter, oils, mayonnaise, sauces, gravies, fried foods, peanut butter, meat, poultry, and fish. Limit fiber. Avoid raw or cooked vegetables, fresh fruits (except bananas) and bran cereals. Limit caffeine and chocolate. No spices or seasonings except salt. During the next 24 hours: Gradually resume a normal diet, as you feel better and your symptoms improve. If at any time your symptoms start getting worse again, go back to clear liquids until you feel better. Food preparation If you have diarrhea, you should not prepare food for others. When preparing foods, wash your handsbefore and after. Wash your hands or use alcohol-based project manager finance after using cutting boards, countertops, and knives that have been in contact with raw food. Dry your hands with a single use towel. Keep uncooked meats away from cooked and kjvev-vl-tvt foods. Follow-up care Follow up with your healthcare provider, or as advised. Call if you don't get better in the next 2 to 3 days. If a stool (diarrhea) sample was taken, or cultures done, you will be told if they are positive, or if your treatment needs to be changed. You may call as directed for the results. If X-rays were taken, you will be notified of any new findings that may affect your care Call 911 Call 911 if any of these occur: Trouble breathing Chest pain Confusion Severe drowsiness or trouble awakening Fainting or loss of consciousness Rapid heart rate Seizure Stiff neck Severe weakness, dizziness, or lightheadedness When to seek medical advice Call your healthcare provider right away if any of these occur: Bloody or black vomit or stools Severe, steady abdominal pain or any abdominal pain that is getting worse Severe headache or stiff neck An inability to hold down even sips of liquids for more than 12 hours Vomiting that lasts more than 24 hours Diarrhea that lasts more than 24 hours Fever of 100.4 F (38.0 C) or higher, or as directed by your healthcare provider Yellowish color to your skin or the whites of your eyes Signs of dehydration, such as dry mouth, little urine (less than every 6 hours), or very dark urine [id number] [employer]. [address] [place] [address]. All rights reserved. This information is not intended as a substitute for professional medical care. Always follow yourhealthcare professional's instructions. Additional Information VACCINATE! IT SAVES LIVES! Members of the community who have not yet received the COVID-19 vaccine and would like to receive it can visit one of [facility] vaccine clinics. There are many vaccine clinic locations within the [facility]. For locations and available times, please visit www.[email or web address].[place].gov/. It is important to note that some COVID mobile vaccine clinics are held outdoors and may be canceled in rainy or stormy conditions. To learn more about pediatric vaccinations (ages 5-11), we invite you to visit the [facility] webpage. [email or web address].[email or web address].org/pages/[email or web address]-[email or web address] stions.htmlTo learn more about the COVID-19 vaccine, we invite you to visit the CDC website for a list of frequently asked questions. https://www.cdc.gov/coronavirus/2019-ncov/vaccines/faq.html [facility] Patient Portal Access Instructions: Stay connected with your healthcare team and access your personal medical information anytime with the [facility] Patient Portal. If you would like a full copy of your medical records please contact the [facility] Medical Records Department Sunday through Sunday between 8a.m. and 4:30p.m. Please follow the directions below to access the portal: 1.Access the email account you provided upon registration to the [facility].2.Look for an invitation email from [facility].3.Open the email and access the invitation link: Accept Invitation to [facility]4.Fill in the required stephens to create your account. Sign into [email or web address] with your username and password that you created in the above steps to stay up to date. You can then view a summary of results, a summary of your visits, and the ability to download your summaries to your computer or send the information securely to a physician. Remember that your healthcare information is confidential, so carefully consider who you will allow to register on the [facility] Patient Portal for access to your information. You can also access the [facility] Patient Portal on the [employer]. Simply click on Health Records under [employer] and then click on the [facility] logo. HOW TO SAFELY DISPOSE OF PRESCRIPTION MEDICATIONS Please use one of the following methods to safely dispose of your unused medications. 1.Use a drug disposal kit: the drug disposal pouch allows you to safely discard your old and unuseddrugs. Ask your nurse to give you one when you are discharged.2.Visit a local take-back location: Many local pharmacies and police departments have programs that collect old and unwanted prescriptiondrugs. Call your local pharmacy or go to http://bit.ly/3E8Il5y to find one close to you.3.Make use of household items: Use cat litter or old coffee grounds to dispose medications if other options arenot available. Mix your drugs with these household products, seal them in an airtight container andthrow it into the garbage. Call [facility]: [phone] to be sure your drugs can be disposed of in this way. Some medicines may require a different approach.4.Never flush your medications down the toilet. IF YOU HAVE BEEN PRESCRIBED AN OPIOIDS FOR PAIN If you have been prescribed an opioid (such as hydrocodone, oxycodone or morphine), it is critical to understand the possible side effects and risks of opioid pain medications. Even when taken as directed, opioids can have several side effects including: Tolerance, meaning you might need to take more of a medication for the same pain relief. Nausea, vomiting and/or constipation. Sleepiness, dizziness, dry mouth, confusion, depression or itching. Physical dependence, meaning you have withdrawal symptoms when a medication is stopped ? this can develop within a few days. KNOW YOUR RESPONSIBILITIES It is important to know exactly how much and how often to take the opioid pain medications you are prescribed. Never take opioids in higher amounts or more often than prescribed. Do not combine opioids with alcohol or other drugs that cause drowsiness, such as benzodiazepines, also known as benzos,including diazepam and alprazolam, muscle relaxants or sleep aids. Never sell or share prescriptionopioids. This is illegal. Store opioids in a secure place and out of reach of others (including children, family, friends and visitors). The last page(s) of this document has been signed and retained as a CHART COPY Signatures Patient Education Materials Vomiting and Diarrhea, Nonspecific (Adult) Medication Leaflets My discharge plan and instructions have been reviewed and explained to me and ICORRIE ROCHELLEunderstand my current condition and have read and understand these discharge instructions. I have received a written copy of the plan/instructions. If I have questions, I am aware that I should contact my doctor. 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 Signature: Date/Time: Relationship to Patient: Witness Name/Signature: Date/Time: [facility]12-20-2024 Note* Exam Date Time Procedure Performing Provider Status 05/23/24 7:51 PM EKG [ED AOH] - CV RAYMUNDO VIEIRA DO; Auth (Verified) ECG Final Report Sinus rhythm Incomplete left bundle branch block Left ventricular hypertrophy Anterior Q waves, possibly due to LVH Electronic Signature: RAYMUNDO VIEIRA DO 05/23/2024 20:06:14 [facility]11-26-2024 [facility] 04-25-2024 Evaluation note* Diagnosis Onset Date Resolution Status Admit Date Chronic pain resolved April 3:52pm Dehydration resolved April 3:52pm Hyperglycemia resolved April 252023 3:52pm Hyponatremia resolved April 3:52pm Leukocytosis resolved April 3:52pm Nausea vomiting and diarrhea resolve d April 25, 2024 3:52pm Tachycardia resolved April 3:52pm Candidiasis of breast inactive [facility] 2023 3:52pm Colitis inactive April 25, 2024 3:52pm Debility inactive April 25, 2024 3:52pm Generalized weakness inactive [facility] 2023 3:52pm UTI (urinary tract infection) acute June 29, 2024 8:31pm Colitis deleted June 29, 2024 8:31pm Dehydration resolved June 29, 2024 8:31pm Sepsis due to gram-negative UTI deleted June 29 8:31pm [facility] Work Phone: 1(513) 398-573109-17-2024 [facility]07-30-2024 [facility]06-18-2024 Telephone encounter Note* Telephone Encounter - Stephanie De La Cruz - 11/20/2023 8:48 AM EDT The patient was discharged from [facility] 10-20-23 with an order to schedule with the Heart Failure Clinic. The Clinic reached out to the patient with no response. Therefore, this is considered a deferral of the Clinic's services at this time. [facility]06-18-2024 Miscellaneous Notes* Telephone Encounter - Stephanie De La Cruz - 11/20/2023 8:48 AM EDT The patient was discharged from [facility] 10-20-23 with an order to schedule with the [facility] Failure Clinic. The Clinic reached out to the patient with no response. Therefore, this is considered a deferral of the Clinic's services at this time. [facility] Telephone encounter Note * Telephone Encounter - Stephanie De La Cruz - 10/22/2023 9:35 AM EDT Patient was discharged from [facility] 10-20-23 with an order to schedule with the Heart Failure Clinic. However, the patient was then immediately admitted to a senior care facility. A letter was mailedto the patient asking them to contact the Clinic upon discharge from the facility. [facility]05-20-2024 Miscellaneous Notes* Telephone Encounter - Stephanie De La Cruz - 10/22/2023 9:35 AM EDT Patient was discharged from [facility] 10-20-23 with an order to schedule with the [facility] Failure Clinic. However, the patient was then immediately admitted to a senior care facility. A letter was mailedto the patient asking them to contact the Clinic upon discharge from the facility. documented in [facility]-2024 NoteHNO ID: [id number] Author: MICHAEL NGUYỄN LSW Service: Care Management Author Type: Front End Specialist Type: Care Mgt Progress Note Filed: 10/19/2023 14:54 Note Text: CARE MANAGEMENT DISCHARGE NOTE SERVICE DATE: October 19, 2023 SERVICE TIME: 1:56 PM Admission Date: 10/18/2023 LOS: 0 days Discharge Arrangement Discharge Arrangement: Penitentiary Facility Was an expedited discharge program used?: No Services Arranged Return to SNF Provider Name: [facility] Caregiver Assessment Caregiver is ready, willing and able to meet the patient's needs as recommended by the inter-professional team: No Caregiver needed Transportation Arrangements Transportation Arrangements: Ambulance Transportation Agency and Phone #:: [facility] ( [facility] ) [phone] / [phone] Date of Trip: 10/19/23 Time of Trip: 0800 Type of Service: BLS Non-emergency Is Patient Medicaid Pending?: No Was transportation financial coverage discussed with family?: Patient Restorative Care Technician Location: [facility] Destination: [facility] Handoff Communication: Handoff to: Primary Care Physician Primary Care Physician Name/Phone: Nathaly Leonard, Nathaly Leonard Additional Information: The facility in [place] [facility] reports they can accept the patient back today and they reports precert is not needed. Social work confirmed this couple times and they said they can accept back when ever transport gets her today. The patient reports that she wants return to SNF and denies any issues transport is set up for 8 PM. They report if their is cancellation they will come earlier. Nursing reports they will call report. Discharge Information Row Name ED to Hosp-Admission (Current) from 10/18/2023 in [facility] Penitentiary Facility Agency [facility] SIGNATURE: SANDRA Kennedy PATIENT NAME: Trenton Jackson DATE: October 19, 2023 TIME: 1:56 PM CONTACT #: [phone] HNO ID: [id number] Author: MICHAEL NGUYỄN LSW Service: Care Management Author Type: Front End Specialist Type: Care Mgt Initial Assessment Filed: 10/19/2023 15:16 Note Text: CARE MANAGEMENT: ASSESSMENT AND DISCHARGE PLAN SERVICE DATE: October 19, 2023 SERVICE TIME: 1:00 PM PCP: Nathaly Leonard Primary Contact: Extended Emergency Contact Information Primary Emergency Contact: Curry Jackson Jr Address: [address] [place] [address] [place] Mobile Relation: Spouse Secondary Emergency Contact: Rebecca Dueñas Address: [place] [address] [facility] Relation: Mother Admission Status: Observation Insurance Provider: [employer] Discharge Planning requested by: Per Department Practice Potential Transition Plans Penitentiary Facility/Intermediate Care Facility Advance Directives Current Advance Directive: None Combat Control Attempted to Assist with AD Completion: Yes Action: Education Provided Current Living Arrangements and Support Lives with: Children Type of Residence: Private Residence (Apartment or Condo) Does the patient have to climb stairs at home?: Yes;stairs outside the home;stairs within the home Support: Children, Spouse/significant other How do you manage to accomplish the following: Independent: Ambulation;Bathe/Shower;Transportation to appointments/community;Dress;Meals/Meal Prep;Going to the bathroom;Medication Management Current Services/Equipment Current Post-Acute Service(s): DME Current DME Type: Rollator Scooter, Rolling walker, Hospital bed Discharge Planning Patient Goal(s): Be able to go home, General wellness [place] of Choice Explained: [place] of Choice Given: Yes Level of Care Discussed: Penitentiary Facility Are you interested in bedside delivery of your medications? No Discharge Planning Participant(s): Patient Patient/Family Comments: Caregiver Assessment: Caregiver is ready, willing and able to meet the patient's needs as recommended by the inter-professional team: No Caregiver needed Transport at Discharge: Transportation Arrangements: Ambulance Transportation Agency and Phone #:: [facility] ( [facility] ) [phone] / [phone] Date of Trip: 10/19/23 Time of Trip: 0800 Type of Service: BLS Non-emergency Is Patient Medicaid Pending?: No Was transportation financial coverage discussed with family?: Patient Restorative Care Technician Location: [facility] Destination: [facility] Needs Prior to Discharge: Needs Prior to Discharge: Ready for Discharge;Discharge Transportation Post-Acute Discharge Plan: Chart reviewed. The patient is admitted due to Cardiology Evaluation Spoke with patient at the bedside. Explained care management role. Functional:Patient lives in an apart with one step to get inside then has go up 14 steps to get to her daughters apartment. Transportation: patient has family to drive her if needed her daughter and mother. Equipment Prior to Admission:patient has walker, Rolator, and facility got her hospital bed. Support: Rebecca Dueñas (mother) [phone] and Curry Jackson Jr (Spouse) [phone] Pharmacy: [facility] [address] [place] [id number] PCP: Nathaly Leonard, Nathaly Leonard The patient was at [facility] 09-02-23 till 09-08-23 after fall and found to have Closed displaced intertrochanteric fracture of right femur. Ortho did surgery and the patient went to [facility]. The patient reports she wants return to SNF today and is happy to be discharged. The patient has skilled needs identified and the patient is mostly independent with her ADL's. The patient reports he/she has no concerns. The patient has PCP, RX coverage and has no follow up needs. Plan for patient to discharge back to SNF when medically ready. Care Management will continue to follow for treatment plan and transitional planning. SIGNATURE: SANDRA Kennedy PATIENT NAME: Trenton Jackson DATE: October 19, 2023 TIME: 2:59 PM CONTACT #: [phone] Telephone encounter Note* Telephone Encounter - Ethel Alonso - 10/18/2023 3:00 PM EDT Spoke to Cindi - she [facility] for transport. She did state that sometimes they can moss picker in 15 minutes but sometimes it can take hours. Cindi does have direct phone # and knows I am in office until 530pm should she need to reach the office, after that to call the main office phone #. Also [facility] ED address. Thank you Ethel Shah [facility]05-16-2024 Miscellaneous Notes* Telephone Encounter - Ethel Alonso - 10/18/2023 3:00 PM EDT Spoke to Cindi - she is going to contact [facility] to arrange for transport. She did state that sometimes they can moss picker in 15 minutes but sometimes it can take hours. Cindi does have direct phone # and knows I am in office until 530pm should she need to reach the office, after that to call the main office phone #. Also verified [facility] ED address. Thank you Ethel Shah * Telephone Encounter - Ethel Alonso - 10/18/2023 10:41 AM EDT Returned Sara's call from [employer] regarding Trenton - last nurse we spoke to (Bryant), they were to take patient to [place] ED and follow up with local ortho md. Called and spoke to Cindi - when order was given to Bryant in regards to giving an antibiotic & taking to [place] ED for surgical consult if no improvement - there was no follow through on that end. The [facility] physician did give an antibiotic 09/27/23 - 10/04/23 and nothing was done after that until Cindi saw Trenton on 10/15/23 & sent her to [place] ED. The ED gave her pain medication and sent her back to the facility. Cindi said Trenton has had some recent labs & rose mary fax them to us, I did give the fax number to her. The lower incision is red and warm as well. Appointment scheduled for Sunday10/23/23 at 1:15pm w/MARTIN Washington. Sending to Dr. May for review Thank you Ethel Shah documented [facility]Kn[facility]05-[facility]24 Telephone encounter Note * Telephone Encounter - Ethel Alonso - 10/18/2023 10:41 AM EDT Returned Sara's call from [employer] regarding Trenton - last nurse we spoke to (Bryant), they were to take patient to [place] ED and follow up with local ortho md. Called and spoke to Cindi - when order was given to Bryant in regards to giving an antibiotic & taking to [place] ED for surgical consult if no improvement - there was no follow through on that end. The [facility] physician did give an antibiotic 09/27/23 - 10/04/23 and nothing was done after that until Cindi saw Trenton on 10/15/23 & sent her to [place] ED. The ED gave her pain medication and sent her back to the facility. Cindi said Trenton has had some recent labs & rose mary fax them to us, I did give the fax number to her. The lower incision is red and warm as well. Appointment scheduled for Sunday10/23/23 at 1:15pm w/MARTIN Washington. Sending to Dr. May for review Thank you Ethel Shah [facility]05-15-2024 Telephone encounter Note* Telephone Encounter - Ethel Alonso - 10/17/2023 4:43 PM EDT Left 2 messages [facility]05-15-2024 Miscellaneous Notes* Telephone Encounter - Ethel Alonso - 10/17/2023 4:43 PM EDT Left 2 messages * Telephone Encounter - Ethel Alonso - 10/09/2023 10:51 AM EDT ----- Message from Pauly Heredia sent at 10/09/2023 9:45 AM EDT ----- Regarding: Orthopedics/Vrabec/Hip/Post-Op Within 90-Day Period Contact: Orthopedics/Vrabec/Hip/Post-Op Within 90-Day Period Patient has been identified by name and Date of (Y/N): y Patient: Trenton Jackson Date of : 1970 Previous Provider Seen: Dr May Body Part(s) Identified: R hip Diagnosis/Reason For Visit: rehab called to sched post-op appt w/ Dr May for R hip sx on 09/03/23 Reason for the call/escalation: per sched tool If reason for call/escalation is discharge from ED/ER or Hospital, which facility was the patient seen at: n/a Was an appointment scheduled (Y/N): n Person calling if other than patient: Bryant @ [facility] Return call to if other than patient: same Best contact number: [phone] Thank you, Pauly Heredia October 09, 2023 9:46 AM documented in this [facility]Kn[facility]05-13-2024 Discharge summary Author Jeremiah Rawls [facility] October 15, 2023 5:33pm Note Date/Time October 15, 2023 4:51p [facility] Medical Records Department [address] [place] [address] Emergency Department Summary 10/15/23 MR#: [id number] Acct: [id number] Name: TRENTON JACKSON Rep #:[id number] : 1970 53 From: Jeremiah Rawls MD PCP: [facility] St atus:[facility] ER Location: ED HPI History of Present Illness Chief Complaint: Lower Extremity Injury Narrative Narrative: 53-year-old female past medical history of right hip arthroplasty status post fracture at the end of September around [facility]. She states that she was trying to go to the bathroom, but did not make it and had fallen. She sustained a fracture of her right hip. She states that she was sent to [place] for surgery. She is now to senior care facility locally for rehabilitation. She takes oxycodone and a muscle relaxer. She denies any recent falls but states she is continuing to have right hip pain. She also states that she has history of a surgical wound infection for which she was on antibiotics for 7 days intravenously. She states that senior care facility wants her wound evaluated as well. [facility] Medical History Acute dyspnea Aftercare following surgery of the circulatory system Alcohol abuse Amputation toe CAD (coronary artery disease), rincon coronary artery CHF (congestive heart failure) Depression Diabetes type 2, uncontrolled DVT (deep venous thrombosis) Essential hypertension GERD (gastroesophageal reflux disease) Hx of fracture of humerus Hyperlipidemia Hypoxemia Ischemic cardiomyopathy Myocardial infarct Osteoporosis Pericardial effusion Psychiatric disorder Pulmonary embolism Rheumatoid arthritis Seizures Sleep apnea Smoker Substance abuse Toe amputee Home Medications cholecalciferol (vitamin D3) 25 mcg (1,000 unit) tablet 1,000 unit PO DAILY vitamin 07/25/22 [History Last Taken 02/01/23] calcium carbonate 1 tablet PO DAILY supplement 08/09/22 [History Last Taken 02/01/23] aspirin 81 mg capsule 81 mg PO DAILY heart health 08/10/22 [History Last Taken 02/01/23] nicotine 21 mg/24 hr daily transdermal patch 21 mg transdermal DAILY stop smoking #30 ea 09/02/22 [Rx Last Taken 02/01/23] atorvastatin 80 mg tablet 80 mg PO DAILY cholesterol #30 tabs 02/03/23 [Rx Last Taken Unknown] clopidogrel 75 mg tablet 75 mg PO DAILY anti platelet #30 tabs 02/03/23 [Rx Last Taken Unknown] escitalopram oxalate 10 mg tablet (Lexapro) 10 mg PO DAILY mental health #30 tabs 02/03/23 [Rx Last Taken Unknown] dapagliflozin propanediol 10 mg tablet (Farxiga) 10 mg PO DAILY diabetes #90 tabs 03/26/23 [Rx Last Taken Unknown] pantoprazole 40 mg tablet,delayed release 40 mg PO DAILY reflux 04/18/23 [History Last Taken Unknown] simethicone 125 mg capsule 125 mg PO TID-QID PRN abdominal distention 04/18/23 [History Last Taken Unknown] carvedilol 12.5 mg tablet 12.5 mg PO BIDCM #60 tabs 05/07/23 [Rx Last Taken Unknown] furosemide 40 mg tablet 40 mg PO BIDLX #60 tabs 05/07/23 [Rx Last Taken Unknown] sacubitril 24 mg-valsartan 26 mg tablet (Entresto) 1 tab PO BID 30 days #60 tabs107/08/22 [Rx Last Taken Unknown] gabapentin 300 mg capsule 300 mg PO TID #90 caps 05/22/23 [Rx Last Taken Unknown] insulin glargine 100 unit/mL subcutaneous solution (Lantus U-100 Insulin) 20 unit (0.2 mL) subcut BID diabetes #10 mL 06/16/23 [Rx Last Taken Unknown] spironolactone 50 mg tablet 50 mg PO DAILY 30 days #30 tabs 06/16/23 [Rx Last Taken Unknown] ondansetron 4 mg disintegrating tablet 4 mg PO Q8H PRN nausea and vomiting #7 tabs 06/19/23 [Rx Last Taken Unknown] Allergy/AdvReac Type Severity Reaction Status Date / Time latex Allergy Hives Verified 10/15/23 15:37 Family History Mother Thyroid disorder Diabetes Hypertension Grandmother Diabetes Uncle Diabetes Aunt Diabetes Other Heart disease Surgical History History of appendectomy History of cholecystectomy Social History household members: spouse and children housing: house Smoking Status: Current every day smoker tobacco type: cigarettes alcohol intake: never substance use type: marijuana what type of physical activity do you participate in: none do you feel safe at home: Yes ROS ROS ED ROS Narrative Constitutional: No fever, no chills. HEENT: No sore throat. No neck pain. No loss of vision. No rhinorrhea. Cardiovascular: No chest pain. No palpitations. No pedal edema. Respiratory: No cough, no shortness of breath. Abdominal: No abdominal pain. No nausea. No vomiting. Genitourinary: No dysuria. No hematuria. Musculoskeletal: No myalgias. Positive right hip pain/arthralgias. Neurologic: No headaches. No dizziness. No lightheadedness. Skin: No rash. No change in color. Psychiatric: No depression. No anxiety. EXAM Physical Exam Narrative Exam Narrative: Afebrile. Vital signs noted. Well-healed surgical incisions right hip without fluctuance or surrounding erythema. Minimal discoloration around wound. Neurovascular intact distally. Regular rate and rhythm. Lungs clear to auscultation bilaterally. Abdomen soft nontender with normal active bowel sounds. Const Vital Signs: 10/15/23 15:35 05/13/24 17:28 Temperature 97.4 F L 97.2 F L Temperature Source Temporal Pulse Rate 81 87 Respiratory Rate 16 17 Blood Pressure 97/65 131/75 H Blood Pressure Mean 75 93 Pulse Ox 99 98 Oxygen Delivery Method Room Air MDM MDM MDM Narrative Medical decision making narrative: I do not feel that she has a wound infection that requires workup or laboratory work, I have low concern for infection. She is not febrile, nor is she tachycardic. She was requesting more pain medication for pain. I do not feel she needs an intramuscular injection. I do feel that she probably has chronic pain. She was given an additional dose of oxycodone 5 mg orally. RN ordered right hip x-ray per protocol were interpreted by myself independently, and I seeno evidence of a dislocation, I do see the previous fracture of her right hip but there is normal alignment. I reviewed the radiology report which comments on the interval placement of a right-sided hip screw spanning the previously seen comminuted intertrochanteric fracture of the right femur. Residual fracture lucency remains. No new fracture identified. At this point in time, I feel she can be discharged back to the senior care facility. She will continue her oxycodone and muscle relaxer. She will continue her rehabilitation of her right hip. Disposition is discharged to senior care facility in stable condition. Radiography Diagnostic Testing: Clinical Impression(s) from Imaging Studies Hip/Pelvis X-Ray 10/15/23 15:43 IMPRESSION: Interval placement of a right-sided hip screw spanning a previously seen comminuted intertrochanteric fracture of the right femur. Residual fracture lucency remain. No definite new fracture is identified. Alignment is satisfactory. Electronically Signed: Mirna Nicholson MD at 16:12 EDT , Discharge Plan Triage Chief Complaint: Lower Extremity Injury ED Provider: Jeremiah Rawls Dx/Rx/DC Orders Clinical Impression: Encounter for postoperative wound check, Acute postoperative pain of right hip Instructions: ED Arthralgia, ED Post Op Wound Check, General, ED Post Op Wound Check, Pain Prescriptions: No Action calcium carbonate 500 mg calcium (1,250 mg) tablet 1 tablet PO DAILY pantoprazole 40 mg tablet,delayed release (DR/EC) 40 mg PO DAILY simethicone 125 mg capsule 125 mg PO TID-QID PRN (Reason: abdominal distention) cholecalciferol (vitamin D3) 25 mcg (1,000 unit) tablet 1,000 unit PO DAILY Patient Comments: TAKE 1 TABLET DAILY aspirin 81 mg Capsule 81 mg PO DAILY nicotine 21 mg/24 hr Patch 24 Hour 21 mg transdermal DAILY Qty: 30 0RF clopidogrel 75 mg Tablet 75 mg PO DAILY Qty: 30 0RF Patient Comments: patient stated pretty sure I still take that atorvastatin 80 mg tablet 80 mg PO DAILY Qty: 30 0RF escitalopram oxalate [Lexapro] 10 mg tablet 10 mg PO DAILY Qty: 30 0RF carvedilol 12.5 mg Tablet 12.5 mg PO BIDCM Qty: 60 0RF Entresto 24-26 mg Tablet 1 tab PO BID 30 Days Qty: 60 0RF furosemide 40 mg Tablet 40 mg PO BIDLX Qty: 60 0RF gabapentin 300 mg capsule 300 mg PO TID Qty: 90 0RF Rx Instructions: Take 300 mg tablet only twice a day for the first 3 days then you may continue through 100 mg 3 times a day for the remainder of the prescription spironolactone 50 mg Tablet 50 mg PO DAILY 30 Days Qty: 30 2RF Rx Instructions: Hold for hyperkalemia, serum potassium more than 5.0 insulin glargine [Lantus U-100 Insulin] 100 unit/mL solution 20 unit subcut BID Qty: 10 2RF Rx Instructions: Hold if glucose less than 130 mg/dl ondansetron 4 mg tablet,disintegrating 4 mg PO Q8H PRN (Reason: nausea and vomiting) Qty: 7 0RF dapagliflozin propanediol [Farxiga] 10 mg tablet 10 mg PO DAILY Qty: 90 3RF Patient Comments: patient stated I know I am supposed to be taking this one but I never got a notification from the pharmacy to come pick it up Primary Care Provider: [facility] Nathaly Finney Referrals: [facility] Nathaly Finney [Primary Care Provider] - Activity Restrictions/Additional Instructions: Continue your previous pain medications. Your postoperative wound does not appear to be acutely infected. Disposition Disposition: Home, Self Care What to do if you have Problems For any increased pain, shortness of breath, bleeding, nausea or vomiting, chestpain, or any unexpected problems, contact your Primary Care Provider. Call [facility] ([phone]) or report to the closest Emergency Room. Call 911 if necessary. 10/15/23 1733 <Electronically signed by Jeremiah Rawls MD> Cosigner Signature (if applicable): CC: [facility] ~ Signed [facility] Work Phone: 1(156) 549-717805-07-2024 Telephone encounter Note* Telephone Encounter - Ethel Alonso - 10/09/2023 10:51 AM EDT ----- Message from Pauly Heredia sent at 10/09/2023 9:45 AM EDT ----- Regarding: Orthopedics/Vrabec/Hip/Post-Op Within 90-Day Period Contact: Orthopedics/Vrabec/Hip/Post-Op Within 90-Day Period Patient has been identified by name and Date of (Y/N): y Patient: Trenton Jackson Date of : 1970 Previous Provider Seen: Dr May Body Part(s) Identified: R hip Diagnosis/Reason For Visit: rehab called to sched post-op appt w/ Dr May for R hip sx on 09/03/23 Reason for the call/escalation: per sched tool If reason for call/escalation is discharge from ED/ER or Hospital, which facility was the patient seen at: n/a Was an appointment scheduled (Y/N): n Person calling if other than patient: Bryant @ [facility] Return call to if other than patient: same Best contact number: [phone] Thank you, Pauly Heredia October 09, 2023 9:46 AM [facility]05-06-2024 Telephone encounter Note* Telephone Encounter - Ethel Alonso - 10/08/2023 3:45 PM EDT Left message for Bryant to get an update on Trenton. Last message to her was instructions from Dr. May regarding giving her antibiotics, taking her to [place] emergency department if no improvements for a surgical consult. Thank you Ethel Dave [facility]05-06-2024 Miscellaneous Notes* Telephone Encounter - Ethel Alonso - 10/08/2023 3:45 PM EDT Left message for Bryant to get an update on Trenton. Last message to her was instructions from Dr. May regarding giving her antibiotics, taking her to [place] emergency department if no improvements for a surgical consult. Thank you Ethel Shah * Telephone Encounter - Ethel Alonso - 10/04/2023 2:40 PM EDT ----- Message from Melany Simon sent at 10/03/2023 1:23 PM EDT ----- Regarding: Orthopedics / Diya May) Leg: Fracture Broken / Post Op Within 90 Day Period Orthopedics / Diya May) Leg: Fracture Broken / Post Op Within 90 Day Period Patient has been identified by name and Date of (Y/N): y Patient: Trenton Jackson Date of : 1970 Previous Provider Seen: N/A Body Part(s) Identified: femur Diagnosis/Reason For Visit: feumr fracture Reason for the call/escalation: Leg: Fracture Broken / Post Op Within 90 Day Period If reason for call/escalation is discharge from ED/ER or Hospital, which facility was the patient seen at: [facility] Was an appointment scheduled (Y/N): no-unable to schedule per tool [facility] Return call to if other than patient: Bryant Best contact number: [phone] Thank you, Melany Simon October 03, 2023 1:23 PM [facility] Telephone encounter Note * Telephone Encounter - Ethel Alonso - 10/04/2023 2:40 PM EDT ----- Message from Melany Simon sent at 10/03/2023 1:23 PM EDT ----- Regarding: Orthopedics / Diya May) Leg: Fracture Broken / Post Op Within 90 Day Period Orthopedics / Diya May) Leg: Fracture Broken / Post Op Within 90 Day Period Patient has been identified by name and Date of (Y/N): y Patient: Trenton Jackson Date of : 1970 Previous Provider Seen: N/A Body Part(s) Identified: femur Diagnosis/Reason For Visit: feumr fracture Reason for the call/escalation: Leg: Fracture Broken / Post Op Within 90 Day Period If reason for call/escalation is discharge from ED/ER or Hospital, which facility was the patient seen at: [facility] Was an appointment scheduled (Y/N): no-unable to schedule per tool Person calling if other than patient: Bryant([facility]) Return call to if other than patient: Bryant Best contact number: [phone] Thank you, Melany Alfred October 03, 2023 1:23 PM [facility]05-01-2024 Telephone encounter Note* Telephone Encounter - Ethel Alonso - 10/03/2023 11:26 AM EDTSummary: PHYSICIAN INSTRUCTIONS Left message for Bryant - Dr. May does not want to schedule a follow up appointment at this time.He would like an update of her wound since she has started the antibiotic. If it has not changed, gotten better or is worse - he would like her taken to the [place] Emergency [facility] for a surgical consult. Left my direct phone number so Bryant can call to let me know status. Thank you Ethel Shah [facility]05-01-2024 Miscellaneous Notes* Telephone Encounter - Ethel Alonso - 10/03/2023 11:26 AM EDTSummary: PHYSICIAN INSTRUCTIONS Left message for Bryant - Dr. May does not want to schedule a follow up appointment at this time.He would like an update of her wound since she has started the antibiotic. If it has not changed, gotten better or is worse - he would like her taken to the [place] [facility] for a surgical consult. Left my direct phone number so Bryant can call to let me know status. Thank you Ethel Shah * Telephone Encounter - Ethel Alonso - 10/02/2023 12:11 PM EDT ----- Message from Agata Das sent at 10/02/2023 11:16 AM EDT ----- Regarding: Orthopedics / Vrabec Hip: Pain / Post Op Within 90 Day Period Subject Line Format: Orthopedics / [Provider Name or Open & Body Part] / [Issue] Patient has been identified by name and Date of (Y/N): y Patient: Trenton Jackson Date of : 1970 Previous Provider Seen: vishal Body Part(s) Identified: r hip Diagnosis/Reason For Visit: post op Reason for the call/escalation: pt would like to schedule post op care center calling on behave of pt If reason for call/escalation is discharge from ED/ER or Hospital, which facility was the patient seen at: na Was an appointment scheduled (Y/N): n Person calling if other than patient: [facility] Return call to if other than patient: bryant Chuck contact number: [phone] Thank you, Agata Das October 02, 2023 11:16 AM [facility] Telephone encounter Note * Telephone Encounter - Ethel Alonso - 10/02/2023 12:11 PM EDT ----- Message from Agata Das sent at 10/02/2023 11:16 AM EDT ----- Regarding: Orthopedics / Vrabec Hip: Pain / Post Op Within 90 Day Period Subject Line Format: Orthopedics / [Provider Name or Open & Body Part] / [Issue] Patient has been identified by name and Date of (Y/N): y Patient: Trenton Jackson Date of : 1970 Previous Provider Seen: vishal Body Part(s) Identified: r hip Diagnosis/Reason For Visit: post op Reason for the call/escalation: pt would like to schedule post op care center calling on behave of pt If reason for call/escalation is discharge from ED/ER or Hospital, which facility was the patient seen at: na Was an appointment scheduled (Y/N): n Person calling if other than patient: [facility] Return call to if other than patient: bryant Chuck contact number: [phone] Thank you, Agata Dsa October 02, 2023 11:16 AM [facility]04-29-2024 Telephone encounter Note* Telephone Encounter - Ethel Alonso - 10/01/2023 11:04 AM EDT Left message w/Clare. She will have Stephania call me when she is back on the floor with an update on Trenton. All Clare can say is that she knows Trenton is still on the antibiotics. Gave Clare my direct phone #. Thank you Ethel Shah [facility]04-29-2024 Miscellaneous Notes* Telephone Encounter - Ethel Alonso - 10/01/2023 11:04 AM EDT Left message w/Clare. She will have Stephania call me when she is back on the floor with an update on Trenton. All Clare can say is that she knows Trenton is still on the antibiotics. Gave Clare my direct phone #. Thank you Ethel Shah * Telephone Encounter - Ethel Alonso - 10/01/2023 10:38 AM EDT ----- Message from Diya May MD sent at 09/30/2023 1:53 PM EDT ----- Please get me an update on her status. Also, a new picture of the wound to review. thx documented [facility]Kn[facility]04-[facility]24 Telephone encounter Note * Telephone Encounter - Ethel Alonso - 10/01/2023 10:38 AM EDT ----- Message from Diya May MD sent at 09/30/2023 1:53 PM EDT ----- Please get me an update on her status. Also, a new picture of the wound to review. thx [facility]04-25-2024 Telephone encounter Note* Telephone Encounter - Ethel Alonso - 09/27/2023 3:34 PM EDTSummary: ABSCESS AT INCISION Received message from Stephania at [facility] stating Trenton is forming an abscess the size of a golf ball at the lower part of her incision and would like to know what Dr. May would like them to do. I called Stephania and she gave a bit more info. The abscess is under the the lower part of the incision.It looks like its going to a large pimple. Dr. May said she can see a local orthopedic since she is in [place]. Dr. Posadas - [phone] He would like if the facility could send a picture of the incision and to start her on Doxycycline 100mg BID. Called Stephania with instructions and Dr. Posadas' phone number. Thank you Ethel Shah [facility]04-25-2024 Miscellaneous Notes* Telephone Encounter - Ethel Alonso - 09/27/2023 3:34 PM EDTSummary: ABSCESS AT INCISION Received message from Stephania at [facility] stating Trenton is forming an abscess the size of a golf ball at the lower part of her incision and would like to know what Dr. May would like them to do. I called Stephania and she gave a bit more info. The abscess is under the the lower part of the incision.It looks like its going to a large pimple. Dr. May said she can see a local orthopedic since she is in [place]. Dr. Posadas - [phone] He would like if the facility could send a picture of the incision and to start her on Doxycycline 100mg BID. Called Stephania with instructions and Dr. Posadas' phone number. Thank you Ethel Shah documented in this encounterKn[facility]04-[facility]-2024 Miscellaneous Notes* Telephone Encounter - Ethel Alonso - 09/14/2023 2:37 PM EDT Left a message for Nurse Mgdylon Ruiz at the rehab facility ([phone]) that we do not need toschedule an appointment at this time but we would like to have a disc with an x-ray of Trenton's pelvis for review 09/17/23. Thank you Ethel Shah * Telephone Encounter - Ethel Alonso - 09/12/2023 9:24 AM EDT ----- Message from Evelyne Madsen sent at 09/11/2023 2:07 PM EDT ----- Regarding: Tuavk-Utlxci-sb follow up post op- hip fracture Subject Line Format: Orthopedics / [Provider Name or Open & Body Part] / [Issue] Patient has been identified by name and Date of (Y/N): Y Patient: Trenton Jackson Date of : 1970 Previous Provider Seen: VISHAL Body Part(s) Identified: R HIP Diagnosis/Reason For Visit: ER FOLLOW UP POST OP Reason for the call/escalation: ER FOLLOW UP POST OP- HIP FRACTURE If reason for call/escalation is discharge from ED/ER or Hospital, which facility was the patient seen at: [facility] Was an appointment scheduled (Y/N): N/A Person calling if other than patient: [facility] Return call to if other than patient: REHAB Best contact number: [phone] Thank you, Evelyne Madsen September 11, 2023 2:07 PM documented in this encounterKnox [facility]04-05-2024 NoteHNO ID: [id number] Author: DANI LAGOS, CHAYITO Service: Nursing Author Type: Registered Nurse Type: Nursing Progress Note Filed: 09/07/2023 15:39 Note Text: Other: Okay to give oxy early prior to 1700 d/c [facility] NoteHNO ID: [id number] Author: KAYLA JOHNSON, Roscoe Service: Care Management Author Type: ? Type: Care Mgt Progress Note Filed: 09/07/2023 14:05 Note Text: [facility] PRECERT NOTE [facility] MEDICAID approved [facility]/. Precert approved through 09/18. [facility] Medicaid precert for [facility] in CS portal is approved for 09/06 to 09/18 Reference #: [id number] --[id number] -- ID: [id number] For any additional questions regarding approvals, transport or care management needs, please contact the CM assigned to this patient in the Treatment Team. SIGNATURE: Kayla Johnson DATE: September 07, 2023 TIME: 2:05 [facility]04-05-2024 NoteHNO ID: [id number] Author: MONICA CHAPARRO APRN.CNP Service: General Surgery Author Type: Nurse Practitioner Type: Progress Notes Filed: 09/07/2023 09:11 Note Text: Trauma Surgery Progress Note SERVICE DATE: 09/07/2023 Trauma Service Pager: For questions or concerns Mon-Fri 6a-5p please page [phone]. After 5pm and on Weekends and Holidays, please page [phone] if in ICU or [phone] if on RNF. SUBJECTIVE: NAEON. Patient nauseated this morning but reports this is chronic/baseline her. Pain controlled. Awaiting SNF placement. OBJECTIVE: Vitals: Temp (24hrs), Av.6 ?C (97.8 ?F), Min:36.3 ?C (97.4 ?F), Max:36.7 ?C (98.1 ?F) BP 117/75 Pulse 87 Temp 36.3 ?C (97.4 ?F) (Oral) Resp 18 Ht 162.6 cm (5' 4) Wt 72.8 kg (160 lb 7.9 oz) LMP 08/20/2015 SpO2 91% BMI 27.55 kg/m? O2 Therapy: Room Air IANDO: Date 09/06/23 0700 - 09/07/23 0659 09/07/23 0700 - 09/08/23 0659 Shift 3203-3457 7021-8879 9492-1760 24 Hour Total 7639-4652 4074-3527 2728-5925 24 Hour Total INTAKE Shift Total OUTPUT Urine 900 1000 1900 Urine Not Saved. 1 x 1 x Output ( External Collection Device 09/04/23 8028) 578 2488 1900 Emesis 50 50 Emesis (ml) 50 50 Shift Total 900 1050 1950 Weight (kg) 72.8 72.8 72.8 72.8 72.8 72.8 72.8 72.8 MEDICATIONS: Current Facility-Administered Medications Medication Dose Route Frequency enoxaparin 30 mg injection (LOVENOX) 30 mg SUBCUTANEOUS DAILY insulin lispro injection (rapid acting) (ADMElog) SUBCUTANEOUS w MEALS AND HS carvedilol 12.5 mg tab(s) (COREG) 12.5 mg ORAL BID sacubitril-valsartan 24-26 mg 1 tablet (ENTRESTO) 1 tablet ORAL BID dapagliflozin propanediol 10 mg tab(s) (FARXIGA) 10 mg ORAL DAILY furosemide 40 mg tab(s) (LASIX) 40 mg ORAL BID aspirin, enteric coated 81 mg tab(s) 81 mg ORAL DAILY clopidogrel 75 mg tab(s) (PLAVIX) 75 mg ORAL DAILY spironolactone 50 mg tab(s) (ALDACTONE) 50 mg ORAL DAILY cholecalciferol 1,000 Units tab(s) (VITAMIN D3) 1,000 Units ORAL DAILY NaCl 0.9% iv flush bag 20 mL INTRAVENOUS PRN gabapentin 300 mg cap(s) (NEURONTIN) 300 mg ORAL TID atorvastatin 80 mg tab(s) (LIPITOR) 80 mg ORAL AT BEDTIME escitalopram oxalate 10 mg tab(s) (LEXAPRO) 10 mg ORAL DAILY baclofen 5 mg tab(s) 5 mg ORAL TID PRN ondansetron 4 mg tab(s) (ZOFRAN) 4 mg ORAL q 6 H PRN Or ondansetron (PF) 4 mg injection (ZOFRAN) 4 mg INTRAVENOUS q 6 H PRN acetaminophen 975 mg tab(s) (TYLENOL) 975 mg ORAL q 6 H senna-docusate 8.6-50 mg 1 tablet (SENNA-S) 1 tablet ORAL BID polyethylene glycol 3350 17 g packet 17 g ORAL DAILY oxyCODONE IR 5-10 mg tab(s) (ROXICODONE) 5-10 mg ORAL q 6 H PRN dextrose 15 gram/32 mL 15 g (TRUEPLUS) 15 g ORAL PRN Or glucagon 1 mg injection 1 mg INTRAMUSCULAR PRN Or dextrose 10% iv bolus 12.[address]OUS PRN pantoprazole [address] 40 mg tab(s) (PROTONIX) 40 mg ORAL DAILY (6 AM) nicotine 7 mg/24 hr 1 Patch (NICODERM) 1 Patch TRANSDERMAL DAILY And nicotine -- REMOVE patch OTHER DAILY And nicotine - verify patch OTHER q 8 H prochlorperazine 5 mg injection (COMPAZINE) 5 mg INTRAVENOUS q 6 H PRN Labs: Recent Labs 09/06/23 0105 09/05/23 0450 NA 135* 133* K 3.8 3.8 CHLOR 97 96* CO2 29 28 BUN 13 13 CREAT 0.69 0.63 GLUC 120* 110* ANION 9 9 CA 8.4* 8.5 WBC 9.50 13.47* HB 10.1* 11.5 HCT 31.4* 35.1* PLT 135* 111* PHYSICAL EXAM: Genl: Appears age appropriate. No acute distress. Resting comfortably. Head/Face: Normocephalic. Atraumatic Eyes: EOMI. PERRLA. Sclera not icteric, not injected Resp: Lungs CTAB. No wheezes, rales or rhonchi. Respiratory status stable on RA @ 91%. CVS: HR as above. Good perfusion throughout. GI: Abdomen is soft, non-tender, non-distended. No guarding or peritoneal signs. MSK: No gross deformities. No clubbing, cyanosis or edema. Normal AROM x 3. Clean, dry dressing over right hip incision. Limited AROM RLE due to pain. BLE compartments soft and compressible. Prior partial left foot amputation noted. R second toe prior amputation also noted. Skin: Warm and dry. Not jaundiced. Neuro: AANDOx3. Strength and sensation grossly intact in all extremities. KNOTT. GCS15. Psych: Normal mood. Normal affect. Appropriate insight into current situation. ASSESSMENT AND PLAN: Assessment Active Hospital Problems Diagnosis Date Noted Closed displaced intertrochanteric fracture of right femur (HCC) 09/02/2023 Dyslipidemia 11/30/2017 Priority: C Trauma 09/02/2023 Fall 09/02/2023 Coronary artery disease involving rincon coronary artery of rincon heart without angina pectoris 07/21/2018 Cannabis use disorder, mild, abuse 07/20/2018 Chronic Uncontrolled type 2 diabetes mellitus with hyperglycemia, with long-term current use of insulin (HCC) 06/08/2018 Chronic systolic heart failure (HCC) 06/08/2018 Anxiety and depression 06/08/2018 Cardiomyopathy (HCC) 12/02/2017 Essential hypertension 02/20/2017 Assessment: 53 year old female s/p mechanical GLF ([place] trans (more content not included)...[facility]04-04-2024 NoteHNO ID: [id number] Author: MELISSA PHAM PA-C Service: General Surgery Author Type: Physician Organizational Consultant Type: Progress Notes Filed: 09/06/2023 14:41 Note Text: Documentation Query Based on your medical judgment of the clinical indicators outlined below, please clarify the condition: (Please type X next to your response and sign) 09/02/23 Orthopaedic Consult: HPI: The patient endorses a ground level fall in her bathroom with subsequent immediate and severe right hip pain and the inability to ambulate...was found to have a right intertrochanteric femur fracture 09/03/23 Operative Report: Insertion of a Right Hip Intramedullary Femoral Nail for an Intertrochanteric Femur Fracture Medication Prior to Admission: cholecalciferol (VITAMIN D3) 1,000 unit tab tablet Take 1,000 Units by mouth once daily. Please clarify the diagnosis associated with the following clinical indicators Age-related fracture of the right femur due to osteoporosis x Other, please specify Right intertrochanteric femur fracture as result of trauma [facility]04-04-2024 NoteHNO ID: [id number] Author: MELISSA PHAM PA-C Service: General Surgery Author Type: Physician Organizational Consultant Type: Progress Notes Filed: 09/06/2023 11:21 Note Text: Trauma Surgery Progress Note SERVICE DATE: 09/06/2023 Trauma Service Pager: For questions or concerns Mon-Fri 6a-5p please page [phone]. After 5pm and on Weekends and Holidays, please page [phone] if in ICU or [phone] if on RNF. SUBJECTIVE: NAEON. Patient continues to note right hip pain. Tolerating diet. Chronic nausea again noted but no emesis. OBJECTIVE: Vitals: Temp (24hrs), Av.4 ?C (97.6 ?F), Min:36.2 ?C (97.2 ?F), Max:36.7 ?C (98 ?F) BP 109/66 Pulse 83 Temp 36.4 ?C (97.6 ?F) (Oral) Resp 16 Ht 162.6 cm (5' 4) Wt 72.6 kg (160 lb 0.9 oz) LMP 08/20/2015 SpO2 97% BMI 27.47 kg/m? O2 Therapy: Nasal Cannula IANDO: Date 09/05/23699 - 09/06/2365809/06/23699 - 09/07/23 0659 Shift 8773-9395 8636-3916 1226-9751 24 Hour Total 4255-0886 6827-7878 1257-1404 24 Hour Total INTAKE Shift Total OUTPUT Urine 3688 885 4865 Output ( External Collection Device 09/04/23 1025) 9464 740 9415 Shift Total 4781 039 3219 Weight (kg) 72.6 72.6 72.6 72.6 72.6 72.6 72.6 72.6 MEDICATIONS: Current Facility-Administered Medications Medication Dose Route Frequency enoxaparin 30 mg injection (LOVENOX) 30 mg SUBCUTANEOUS DAILY insulin lispro injection (rapid acting) (ADMElog) SUBCUTANEOUS w MEALS AND HS carvedilol 12.5 mg tab(s) (COREG) 12.5 mg ORAL BID sacubitril-valsartan 24-26 mg 1 tablet (ENTRESTO) 1 tablet ORAL BID dapagliflozin propanediol 10 mg tab(s) (FARXIGA) 10 mg ORAL DAILY furosemide 40 mg tab(s) (LASIX) 40 mg ORAL BID aspirin, enteric coated 81 mg tab(s) 81 mg ORAL DAILY clopidogrel 75 mg tab(s) (PLAVIX) 75 mg ORAL DAILY spironolactone 50 mg tab(s) (ALDACTONE) 50 mg ORAL DAILY cholecalciferol 1,000 Units tab(s) (VITAMIN D3) 1,000 Units ORAL DAILY NaCl 0.9% iv flush bag 20 mL INTRAVENOUS PRN gabapentin 300 mg cap(s) (NEURONTIN) 300 mg ORAL TID atorvastatin 80 mg tab(s) (LIPITOR) 80 mg ORAL AT BEDTIME escitalopram oxalate 10 mg tab(s) (LEXAPRO) 10 mg ORAL DAILY baclofen 5 mg tab(s) 5 mg ORAL TID PRN ondansetron 4 mg tab(s) (ZOFRAN) 4 mg ORAL q 6 H PRN Or ondansetron (PF) 4 mg injection (ZOFRAN) 4 mg INTRAVENOUS q 6 H PRN acetaminophen 975 mg tab(s) (TYLENOL) 975 mg ORAL q 6 H senna-docusate 8.6-50 mg 1 tablet (SENNA-S) 1 tablet ORAL BID polyethylene glycol 3350 17 g packet 17 g ORAL DAILY oxyCODONE IR 5-10 mg tab(s) (ROXICODONE) 5-10 mg ORAL q 6 H PRN morphine 2 mg injection 2 mg INTRAVENOUS q 3 H PRN dextrose 15 gram/32 mL 15 g (TRUEPLUS) 15 g ORAL PRN Or glucagon 1 mg injection 1 mg INTRAMUSCULAR PRN Or dextrose 10% iv bolus 12.5 g INTRAVENOUS PRN pantoprazole DR 40 mg tab(s) (PROTONIX) 40 mg ORAL DAILY (6 AM) nicotine 7 mg/24 hr 1 Patch (NICODERM) 1 Patch TRANSDERMAL DAILY And nicotine -- REMOVE patch OTHER DAILY And nicotine - verify patch OTHER q 8 H prochlorperazine 5 mg injection (COMPAZINE) 5 mg INTRAVENOUS q 6 H PRN Labs: Recent Labs 09/06/23 0105 09/05/23 0450 09/04/23 0831 NA 135* 133* 134* K 3.8 3.8 3.7 CHLOR 97 96* 98 CO2 29 28 30 BUN 13 13 13 CREAT 0.69 0.63 0.66 GLUC 120* 110* 160* ANION 9 9 6* CA 8.4* 8.5 8.4* ALB -- -- 2.6* AST -- -- 13 ALT -- -- 9 ALKPHOS -- -- 92 TBILI -- -- 0.8 WBC 9.50 13.47* -- HB 10.1* 11.5 -- HCT 31.4* 35.1* -- PLT 135* 111* -- PHYSICAL EXAM: Genl: Appears age appropriate. No acute distress. Resting comfortably. Head/Face: Normocephalic. Atraumatic Eyes: EOMI. PERRLA. Sclera not icteric, not injected Resp: Lungs CTAB. No wheezes, rales or rhonchi. Respiratory status stable on 2.5L NC @ 97%. CVS: HR as above. Good perfusion throughout. GI: Abdomen is soft, non-tender, non-distended. No guarding or peritoneal signs. MSK: No gross deformities. No clubbing, cyanosis or edema. Normal AROM x 3. Clean, dry dressing over right hip incision. Limited AROM RLE due to pain. BLE compartments soft and compressible. Prior partial left foot amputation noted. R second toe prior amputation also noted. Skin: Warm and dry. Not jaundiced. Neuro: AANDOx3. Strength and sensation grossly intact in all extremities. KNOTT. GCS15. Psych: Normal mood. Normal affect. Appropriate insight into current situation. ASSESSMENT AND PLAN: Assessment Active Hospital Problems Diagnosis Date Noted Closed displaced intertrochanteric fracture of right femur (HCC) 09/02/2023 Dyslipidemia 11/30/2017 Priority: C Trauma 09/02/2023 Fall 09/02/2023 Coronary artery disease involving rincon coronary artery of rincon heart without angina pectoris 07/21/2018 Cannabis use disorder, mild, abuse 07/20/2018 Chronic Uncontrolled type 2 diabetes mellitus with hyperglycemia, with long-term current use of insulin ([facility]) 06/08/2018 Chronic systolic heart failure ([facility]) 06/08/2018 Anxiety and depression 06/08/2018 Cardiomy (more content not included)...[facility]04-03-2024 NoteHNO ID: [id number] Author: TERRIE URIOSTEGUI RN Service: Care Management Author Type: Registered Nurse Type: Care Mgt Progress Note Filed: 09/05/2023 16:10 Note Text: Attestation signed by Jozef Barros DO at 09/05/2023 4:17 PM (Updated) Physician attestation I personally saw and examined the patient. I reviewed the note. I agree with the assessment and plan unless otherwise noted below. Medically stable for discharge, anticipated discharge date 09/06/2023 Signature: Jozef Barros DO Date: 09/05/2023 Time: 4:11 PM CARE MANAGEMENT PROGRESS NOTE SERVICE DATE: 09/05/2023 SERVICE TIME: 4:10 PM LOS: 3 days Physician Certification of Less Than 30 Days Post-Acute Nursing Facility Needed Earliest Possible Discharge Date: 09/05/23 To the best of my knowledge, all information provided about the individual is a true and an accurate reflection of Trenton Jackson's needs. I certify that following the inpatient level of care, a post-acute nursing facility stay is required for less than 30 days related to the condition(s) for which the patient was treated during the inpatient level of care: Principal Problem: Closed displaced intertrochanteric fracture of right femur (HCC) Active Problems: Dyslipidemia Essential hypertension Cardiomyopathy (HCC) Uncontrolled type 2 diabetes mellitus with hyperglycemia, with long-term current use of insulin (HCC) Chronic systolic heart failure (HCC) Anxiety and depression Cannabis use disorder, mild, abuse Coronary artery disease involving rincon coronary artery of rincon heart without angina pectoris Trauma Fall Resolved Problems: * No resolved hospital problems. * Physician: Jozef Barros DO SIGNATURE: Terrie Uriostegui RN PATIENT NAME: Trenton Jackson DATE: September 05, 2023 TIME: 4:09 PM PAGER/CONTACT #: [phone] [facility]04-03-2024 NoteHNO ID: [id number] Author: TERRIE URIOSTEGUI RN Service: Care Management Author Type: Registered Nurse Type: Care Mgt Progress Note Filed: 09/05/2023 15:44 Note Text: CARE MANAGEMENT PROGRESS NOTE SERVICE DATE: 09/05/2023 SERVICE TIME: 2:52 PM LOS: 3 days [place] of Choice Given: Yes Level of Care Discussed: [facility] Financial Disclosure Provided: No Provider List: [facility] Provider list within the patient's requested geographic area shared with the patient/family: Yes within: 15 miles of zip code: [address] Quality and resource use metrics shared with the patient that are relevant to the patient's goals of care and treatment preferences:: Yes DC Plan: SNF , discussed pt/ot recs for SNF, pt agreeable to snf list, snf list provided, FOC is [facility]; agreeable to sending additional referrals to [facility], [facility] , and [facility] ; referrals sent Barriers to dc: precert needs to be initiated Anticipated dc date: 09/05-09/06 Transportation: pt will likely need transportation arrangements at md ADDENDUM: [facility] still has not accepted, pt agreeable to starting precert with [facility], precert requested; Attestation note in place on 09/04 still needs cosigned SIGNATURE: Terrie Uriostegui RN PATIENT NAME: Trenton Jackson DATE: September 05, 2023 TIME: 2:52 PM PAGER/CONTACT #: [phone] [facility]04-[facility]-2024 NoteHNO ID: [id number] Author: DIYA MAY MD Service: Care Management Author Type: Physician Type: Care Mgt Progress Note Filed: 09/05/2023 13:51 Note Text: I participated in the jones components and agree. Signature: Diya May MD Service Date: 09/05/2023 Service Time: 1:51 PM CARE MANAGEMENT PROGRESS NOTE SERVICE DATE: 09/05/2023 SERVICE TIME: 11:55 AM LOS: 3 days Physician Certification of Less Than 30 Days Post-Acute Nursing Facility Needed Earliest Possible Discharge Date: 09/05/23 To the best of my knowledge, all information provided about the individual is a true and an accurate reflection of Trenton Jackson's needs. I certify that following the inpatient level of care, a post-acute nursing facility stay is required for less than 30 days related to the condition(s) for which the patient was treated during the inpatient level of care: Principal Problem: Closed displaced intertrochanteric fracture of right femur (HCC) Active Problems: Dyslipidemia Essential hypertension Cardiomyopathy (HCC) Uncontrolled type 2 diabetes mellitus with hyperglycemia, with long-term current use of insulin (HCC) Chronic systolic heart failure (HCC) Anxiety and depression Cannabis use disorder, mild, abuse Coronary artery disease involving rincon coronary artery of rincon heart without angina pectoris Trauma Fall Resolved Problems: * No resolved hospital problems. * Physician: Jahaira Alfaro MD SIGNATURE: Terrie Uriostegui RN PATIENT NAME: Trenton Jackson DATE: September 05, 2023 TIME: 11:55 AM PAGER/CONTACT #: [phone] [facility]04-03-2024 NoteHNO ID: [id number] Author: ROBERTO DAS PA-C Service: General Surgery Author Type: Physician Organizational Consultant Type: Progress Notes Filed: 09/05/2023 07:58 Note Text: Trauma Surgery Progress Note SERVICE DATE: 09/05/2023 Trauma Service Pager: For questions or concerns Mon-Fri 6a-5p please page [phone]. After 5pm and on Weekends and Holidays, please page [phone] if in ICU or [phone] if on RNF. SUBJECTIVE: Patient is POD#2 s/p R CMN. NAEON. Patient was awake and alert. She has some mild chronic nausea that is not worsened. She is voiding on her own post douglas removal. She is tolerating a diet and passing flatus. No BM yet. Awaiting SNF placement. OBJECTIVE: Vitals: Temp (24hrs), Av.8 ?C (98.2 ?F), Min:36.4 ?C (97.5 ?F), Max:37 ?C (98.6 ?F) BP 119/66 Pulse 89 Temp 36.4 ?C (97.5 ?F) (Oral) Resp 18 Ht 162.6 cm (5' 4) Wt 72.6 kg (160 lb 0.9 oz) LMP 08/20/2015 SpO2 95% BMI 27.47 kg/m? O2 Therapy: Nasal Cannula IANDO: Date 09/04/23 07 - 09/05/23 0659 09/05/23 07 - 09/06/23 0659 Shift 4934-0356 8536-1747 7199-4061 24 Hour Total 3402-0819 7516-6127 0393-9442 24 Hour Total INTAKE PO 120 120 PO 120 120 Shift Total 120 120 OUTPUT Urine 451 451 Void (ml) 1 1 Output ([REMOVED] Indwelling Urinary Catheter 09/02/23 External Facility [place] 16 Fr 09/04/23 0959) 450 450 Shift Total 451 451 Weight (kg) 72.6 72.6 72.6 72.6 72.6 72.6 72.6 72.6 MEDICATIONS: Current Facility-Administered Medications Medication Dose Route Frequency insulin lispro injection (rapid acting) (ADMElog) SUBCUTANEOUS w MEALS AND HS enoxaparin 30 mg injection (LOVENOX) 30 mg SUBCUTANEOUS q 12 HR carvedilol 12.5 mg tab(s) (COREG) 12.5 mg ORAL BID sacubitril-valsartan 24-26 mg 1 tablet (ENTRESTO) 1 tablet ORAL BID dapagliflozin propanediol 10 mg tab(s) (FARXIGA) 10 mg ORAL DAILY furosemide 40 mg tab(s) (LASIX) 40 mg ORAL BID aspirin, enteric coated 81 mg tab(s) 81 mg ORAL DAILY clopidogrel 75 mg tab(s) (PLAVIX) 75 mg ORAL DAILY spironolactone 50 mg tab(s) (ALDACTONE) 50 mg ORAL DAILY cholecalciferol 1,000 Units tab(s) (VITAMIN D3) 1,000 Units ORAL DAILY NaCl 0.9% iv flush bag 20 mL INTRAVENOUS PRN gabapentin 300 mg cap(s) (NEURONTIN) 300 mg ORAL TID atorvastatin 80 mg tab(s) (LIPITOR) 80 mg ORAL AT BEDTIME escitalopram oxalate 10 mg tab(s) (LEXAPRO) 10 mg ORAL DAILY baclofen 5 mg tab(s) 5 mg ORAL TID PRN ondansetron 4 mg tab(s) (ZOFRAN) 4 mg ORAL q 6 H PRN Or ondansetron (PF) 4 mg injection (ZOFRAN) 4 mg INTRAVENOUS q 6 H PRN acetaminophen 975 mg tab(s) (TYLENOL) 975 mg ORAL q 6 H senna-docusate 8.6-50 mg 1 tablet (SENNA-S) 1 tablet ORAL BID polyethylene glycol 3350 17 g packet 17 g ORAL DAILY oxyCODONE IR 5-10 mg tab(s) (ROXICODONE) 5-10 mg ORAL q 6 H PRN morphine 2 mg injection 2 mg INTRAVENOUS q 3 H PRN dextrose 15 gram/32 mL 15 g (TRUEPLUS) 15 g ORAL PRN Or glucagon 1 mg injection 1 mg INTRAMUSCULAR PRN Or dextrose 10% iv bolus 12.5 g INTRAVENOUS PRN pantoprazole DR 40 mg tab(s) (PROTONIX) 40 mg ORAL DAILY (6 AM) nicotine 7 mg/24 hr 1 Patch (NICODERM) 1 Patch TRANSDERMAL DAILY And nicotine -- REMOVE patch OTHER DAILY And nicotine - verify patch OTHER q 8 H prochlorperazine 5 mg injection (COMPAZINE) 5 mg INTRAVENOUS q 6 H PRN Labs: Recent Labs 09/05/23 0450 09/04/23 0831 09/04/23 0018 09/03/23 0206 09/02/23 1200 NA 133* 134* -- < > 135* K 3.8 3.7 -- < > 3.7 CHLOR 96* 98 -- < > 94* CO2 28 30 -- < > 28 BUN 13 13 -- < > 5* CREAT 0.63 0.66 -- < > 0.56* GLUC 110* 160* -- < > 312* ANION 9 6* -- < > 13 CA 8.5 8.4* -- < > 9.0 ALB -- 2.6* -- -- 3.5* AST -- 13 -- -- 21 ALT -- 9 -- -- 20 ALKPHOS -- 92 -- -- 119 TBILI -- 0.8 -- -- 0.8 WBC 13.47* -- 12.21* < > 15.50* HB 11.5 -- 12.3 < > 14.4 HCT 35.1* -- 37.7 < > 42.9 PLT 111* -- 108* < > 172 INR -- -- -- -- 1.0 < > = values in this interval not displayed. PHYSICAL EXAM: Genl: Appears age appropriate. No acute distress. Resting comfortably. Head/Face: Normocephalic. Atraumatic. Eyes: EOMI. Sclera not icteric, not injected Resp: Lung sounds are clear bilat. No wheezes. No rales. Breathing is non-labored on 2L @95%. CVS: HR as above; 2+ pulses at RA, DP bilat. GI: Abdomen is soft, non-tender, not distended. No peritonitis. : Douglas draining clear yellow urine. MSK: Extremities without clubbing, cyanosis, edema. Normal ROM x 3. Limited ROM RLE 2/2 pain. Prior partial left foot amputation noted. Right foot second toe prior amputation noted. Right hip surgical dressing is C/D/I. RLE compartments are soft and compressible. Skin: Warm and dry. Not jaundiced. Neuro: AANDOx3. Strength and sensation normal. KNOTT. GCS15. Psych: Normal mood. Normal affect. Appropriate insight into current situation. ASSESSMENT AND PLAN: Assessment Active Hospital Problems Diagnosis Date Noted Closed displaced intertrochanteric fracture of right femur (HCC) 09/02/2023 Dyslipidemia (more content not included)...[facility] 09-05-2023 NoteHNO ID: [id number] Author: NICHELLE VIRAMONTES MD Service: Orthopaedic Surgery Author Type: Resident Type: Progress Notes Filed: 09/05/2023 06:22 Note Text: ORTHOPAEDIC SURGERY DAILY PROGRESS NOTE Patient Name: Trenton Jackson Date of Evaluation: 09/05/2023 Admission Date: 09/02/2023 Time of Evaluation: 6:19 AM ASSESSMENT: 53 year old female POD # 2 s/p R CMN PLAN: -management per Trauma -dressing/splints status: Mepilex x 7-10 days -WBAT RLE -pain control -diet: Ok for diet from ortho perspective -DVT ppx: Home ASA/Plavix resumed -post-operative antibiotics: Ancef x 2 doses, Vanc x 1 dose, complete -PT/OT recommending SNF -Disposition: Discharge planning per primary -Follow up with Dr. May in 10-14 days for routine post op follow up and repeat XR INTERVAL HPI: No acute events overnight recorded in chart. Pt with pain currently controlled. Worked well with PT/OT yesterday who is recommending SNF. The patient denies nausea/vomiting, fevers/chills, and new numbness/tingling to RLE. OBJECTIVE: BP 116/72 Pulse 95 Temp 36.8 ?C (98.2 ?F) (Oral) Resp 18 Ht 162.6 cm (5' 4) Wt 72.6 kg (160 lb 0.9 oz) LMP 08/20/2015 SpO2 97% BMI 27.47 kg/m? Intake/Output Summary (Last 24 hours) No intake/output data recorded. Exam: General: Pt is alert, resting in bed, no acute distress, cooperative throughout the exam and interview, answers questions appropriately Extremities: Right Lower Extremity: Dressing clean, dry, and intact. Surgical site Mepilex intact. SILT S/S/SP/DP/T however diminished due to baseline neuropathy Motor intact DF/PF/EHL DP pulse palpable, foot warm, BCR toes Compartments soft, compressible. Tolerates passive stretch of digits. Labs: BMP: Sodium 133 09/05/2023 Potassium 3.8 09/05/2023 Chloride 96 09/05/2023 CO2 28 09/05/2023 BUN 13 09/05/2023 Creatinine 0.63 09/05/2023 Glucose 110 09/05/2023 CBC: WBC 13.47 09/05/2023 Hemoglobin 11.5 09/05/2023 Hematocrit 35.1 09/05/2023 Platelet Count 111 09/05/2023 COAGS: APTT 26.2 09/02/2023 PT INR 1.0 09/02/2023 SED RATE/CRP: WSR 5 12/05/2017 WSR Unable to assay. No specimen received. 12/03/2017 WSR Value: Unable to assay. Specimen grossly hemolyzed. Specimen may have been stored or transported frozen. 12/02/2017 WSR 6 06/01/2014 CRP 0.2 12/02/2017 Imaging: No new orthopaedic imaging to review Nichelle Viramontes MD Resident, Orthopaedic Surgery 09/05/2023 6:19 AM Please page [phone] from 5p-6a and on weekends for any issues.[facility]04-02-2024 NoteHNO ID: [id number] Author: NORM RUEDA LSW Service: Care Management Author Type: Front End Specialist Type: Care Mgt Progress Note Filed: 09/04/2023 10:46 Note Text: CARE MANAGEMENT PROGRESS NOTE SERVICE DATE: 09/04/2023 SERVICE TIME: 10:39 AM LOS: 2 days ALCOHOL USE HISTORY: 1. Consumption Screening Female 4 or more drinks in one session:No More than 1 drink per day:No More than 7 drinks per week:No 2. Have you ever felt you should cut down on your drinking? No 3. Have people annoyed you by criticizing your drinking? No 4. Have you ever felt bad or guilty about drinking? No 5. Have you ever had a drink first thing in the morning to steady your nerves or get rid of a hangover (eye salvager helper)? No 6. CAGE Screening? No 7. If patient has a positive screen CAGE or Consumption, what is their total number of drinks per day? na 8. Date of last alcohol use: na ALCOHOL/DRUG HISTORY: Marijuana Has drinking/drug use affected your work performance? No Has drinking/drug use caused you to miss work? No Has drinking/drug use affected your relationships? No Has drinking/drug use affected your health? No Has drinking/drug use had legal consequences? No Do you have a history of substance abuse treatment? No MENTAL HEALTH HISTORY: Do you have a history of mental health issues? Yes. Was it related to substance abuse? No What type of treatment did you receive? None Have you ever had any behavioral problems/anger management issues? No PSYCHOSOCIAL ASSESSMENT: Current living situation: dtr and dtr's boyfriend Social supports: family and children Do you have a family history of alcohol/drug use? No Do you have a family history of mental health issues? Yes Significant childhood events (trauma, abuse, neglect)? No Current or past history of abuse/neglect? No Cultural beliefs related to alcohol/drug use? No Self care issues? No Difficulty communicating with others? No Financial difficulties? No Currently employed? No Student? No Past or present ? No PLAN/RECOMMENDATIONS: Patient Education: Consequences of illicit drugs, Information and feedback about screening results, and Relapse Prevention Recommended/Reviewed Abstinence for the following: Contraindicated medical condition present, Drug Interactions, and Operating vehicle or machinery Motivation to seek treatment at this time: Low Barriers to seeking treatment: self Treatment Referral: declined resources Other Referrals: declined resources Sw met with patient at bedside, patient states she lives with her daughter and daughter's boyfriend. Patient states she also has a son who will be16. Patient states she is working on getting her life better. Patient states she sometimes uses marijuana daily but was unable to explain why she uses daily at times. Patient does not feel marijuana is an issue for her at this time and has declined resources. SIGNATURE: SANDRA Milner PATIENT NAME: Trenton Jackson DATE: September 04, 2023 TIME: 10:39 AM PAGER/CONTACT #: [phone]-04[facility]2023 NoteHNO ID: [id number] Author: ROBERTO DAS PA-C Service: General Surgery Author Type: Physician Organizational Consultant Type: Progress Notes Filed: 09/04/2023 08:51 Note Text: Trauma Surgery Progress Note SERVICE DATE: 09/04/2023 Trauma Service Pager: For questions or concerns Mon-Fri 6a-5p please page [phone]. After 5pm and on Weekends and Holidays, please page [phone] if in ICU or [phone] if on RNF. SUBJECTIVE: Patient is POD#1 s/p R CMN. She was awake and alert this morning. She complained of persistent right hip pain. No acute focal concerns. She denied any current CP, SOB, N/V, or ABD pain. OBJECTIVE: Vitals: Temp (24hrs), Av.6 ?C (97.8 ?F), Min:36.2 ?C (97.2 ?F), Max:37 ?C (98.6 ?F) BP 106/67 Pulse 95 Temp 37 ?C (98.6 ?F) (Oral) Resp 13 Ht 162.6 cm (5' 4) Wt 72.6 kg (160 lb 0.9 oz) LMP 08/20/2015 SpO2 95% BMI 27.47 kg/m? O2 Therapy: Nasal Cannula IANDO: Date 09/03/23699 - 09/04/2365809/04/23699 - 09/05/23 0659 Shift 5934-8653 0891-0426 5182-4486 24 Hour Total 5797-6682 5519-8749 8679-7655 24 Hour Total INTAKE PO 120 120 120 120 PO 120 120 120 120 IV 500 500 Volume (mL) (ceFAZolin iv piggyback 2 g in D5W (iso-osmotic) 100 mL (ANCEF)) 100 100 Volume (mL) (tranexamic acid (CYKLOKAPRON) in NaCl 0.7% 1,000 mg 100 mL) 100 100 Volume (mL) (lactated ringers iv infusion) 300 300 Shift Total 500 120 620 120 120 OUTPUT Urine 300 300 400 400 Output ( Indwelling Urinary Catheter 09/02/23 External Facility [facility] 16 Fr) 300 300 400 400 Blood 50 50 Estimated Blood loss 50 50 Shift Total 350 350 400 400 Weight (kg) 72.6 72.6 72.6 72.6 72.6 72.6 72.6 72.6 MEDICATIONS: Current Facility-Administered Medications Medication Dose Route Frequency insulin lispro injection (rapid acting) (ADMElog) SUBCUTANEOUS w MEALS AND HS enoxaparin 30 mg injection (LOVENOX) 30 mg SUBCUTANEOUS q 12 HR carvedilol 12.5 mg tab(s) (COREG) 12.5 mg ORAL BID sacubitril-valsartan 24-26 mg 1 tablet (ENTRESTO) 1 tablet ORAL BID dapagliflozin propanediol 10 mg tab(s) (FARXIGA) 10 mg ORAL DAILY furosemide 40 mg tab(s) (LASIX) 40 mg ORAL BID aspirin, enteric coated 81 mg tab(s) 81 mg ORAL DAILY clopidogrel 75 mg tab(s) (PLAVIX) 75 mg ORAL DAILY spironolactone 50 mg tab(s) (ALDACTONE) 50 mg ORAL DAILY cholecalciferol 1,000 Units tab(s) (VITAMIN D3) 1,000 Units ORAL DAILY ceFAZolin iv piggyback 2 g in D5W (iso-osmotic) 100 mL (ANCEF) 2 g INTRAVENOUS q 8 HR NaCl 0.9% iv flush bag 20 mL INTRAVENOUS PRN gabapentin 300 mg cap(s) (NEURONTIN) 300 mg ORAL TID atorvastatin 80 mg tab(s) (LIPITOR) 80 mg ORAL AT BEDTIME escitalopram oxalate 10 mg tab(s) (LEXAPRO) 10 mg ORAL DAILY baclofen 5 mg tab(s) 5 mg ORAL TID PRN ondansetron 4 mg tab(s) (ZOFRAN) 4 mg ORAL q 6 H PRN Or ondansetron (PF) 4 mg injection (ZOFRAN) 4 mg INTRAVENOUS q 6 H PRN acetaminophen 975 mg tab(s) (TYLENOL) 975 mg ORAL q 6 H senna-docusate 8.6-50 mg 1 tablet (SENNA-S) 1 tablet ORAL BID polyethylene glycol 3350 17 g packet 17 g ORAL DAILY oxyCODONE IR 5-10 mg tab(s) (ROXICODONE) 5-10 mg ORAL q 6 H PRN morphine 2 mg injection 2 mg INTRAVENOUS q 3 H PRN dextrose 15 gram/32 mL 15 g (TRUEPLUS) 15 g ORAL PRN Or glucagon 1 mg injection 1 mg INTRAMUSCULAR PRN Or dextrose 10% iv bolus 12.5 g INTRAVENOUS PRN pantoprazole DR 40 mg tab(s) (PROTONIX) 40 mg ORAL DAILY (6 AM) nicotine 7 mg/24 hr 1 Patch (NICODERM) 1 Patch TRANSDERMAL DAILY And nicotine -- REMOVE patch OTHER DAILY And nicotine - verify patch OTHER q 8 H prochlorperazine 5 mg injection (COMPAZINE) 5 mg INTRAVENOUS q 6 H PRN Labs: Recent Labs 09/04/23 0018 09/04/23 0011 09/03/23 0206 09/02/23 1200 NA -- 136 138 135* K -- 3.8 3.5* 3.7 CHLOR -- 97 99 94* CO2 -- 30 32* 28 BUN -- 13 6* 5* CREAT -- 0.78 0.56* 0.56* GLUC -- 174* 130* 312* ANION -- 9 7* 13 CA -- 8.5 8.8 9.0 ALB -- -- -- 3.5* AST -- -- -- 21 ALT -- -- -- 20 ALKPHOS -- -- -- 119 TBILI -- -- -- 0.8 WBC 12.21* -- 13.08* 15.50* HB 12.3 -- 13.2 14.4 HCT 37.7 -- 39.4 42.9 PLT 108* -- 146* 172 INR -- -- -- 1.0 PHYSICAL EXAM: Genl: Appears age appropriate. No acute distress. Resting comfortably. Head/Face: Normocephalic. Atraumatic. Eyes: EOMI. Sclera not icteric, not injected Resp: Lung sounds are clear bilat. No wheezes. No rales. Breathing is non-labored on 2L @95%. CVS: HR as above; 2+ pulses at RA, DP bilat. GI: Abdomen is soft, non-tender, not distended. No peritonitis. : Douglas draining clear yellow urine. MSK: Extremities without clubbing, cyanosis, edema. Normal ROM x 3. Limited ROM RLE 2/2 pain. Prior partial left foot amputation noted. Right foot second toe prior amputation noted. Right hip surgical dressing is C/D/I. RLE compartments are soft and compressible. Skin: Warm and dry. Not jaundiced. Neuro: AANDOx3. Strength and sensation normal. KNOTT. GCS15. Psych: Normal mood. Normal affect. Appropriate insight into current situa (more content not included)...[facility]04-02-2024 NoteHNO ID: [id number] Author: DIYA MAY MD Service: Orthopaedic Surgery Author Type: Physician Type: Progress Notes Filed: 09/04/2023 11:50 Note Text: I evaluated the patient and personally participated in the jones components. I agree with the resident's findings and plan with the following revisions and/or additions: Discharge planning Signature: Diya May MD Service Date: 09/04/2023 Service Time: 11:50 AM ORTHOPAEDIC SURGERY DAILY PROGRESS NOTE Patient Name: Trenton Jackson Date of Evaluation: 09/04/2023 Admission Date: 09/02/2023 Time of Evaluation: 6:15 AM ASSESSMENT: 53 year old female POD # 1 s/p R CMN PLAN: -management per Trauma -dressing/splints status: Mepilex x 7-10 days -WBAT RLE -pain control -diet: Ok for diet from ortho perspective -DVT ppx: OK to resume home ASA/Plavix on pod#1 -post-operative antibiotics: Ancef x 2 doses, Vanc x 1 dose, complete -PT/OT today -disposition: per primary INTERVAL HPI: Patient underwent R CMN yesterday. No acute events overnight recorded in chart. Pt currently complains of some pain to right hip as well as nausea. Denies vomiting. Denies fevers/chills or new numbness/tingling to RLE. OBJECTIVE: BP 104/58 Pulse 98 Temp 36.6 ?C (97.9 ?F) (Oral) Resp 16 Ht 162.6 cm (5' 4) Wt 72.6 kg (160 lb 0.9 oz) LMP 08/20/2015 SpO2 97% BMI 27.47 kg/m? Intake/Output Summary (Last 24 hours) No intake/output data recorded. Exam: General: Pt is alert, resting in bed, no acute distress, cooperative throughout the exam and interview, answers questions appropriately Extremities: Right Lower Extremity: Dressing clean, dry, and intact. Surgical site no drainage and Mepilex intact. SILT S/S/SP/DP/T however diminished due to baseline neuropathy Motor intact DF/PF/EHL DP pulse palpable, foot warm, BCR toes Compartments soft, compressible. Tolerates passive stretch of digits. Labs: BMP: Sodium 136 09/04/2023 Potassium 3.8 09/04/2023 Chloride 97 09/04/2023 CO2 30 09/04/2023 BUN 13 09/04/2023 Creatinine 0.78 09/04/2023 Glucose 174 09/04/2023 CBC: WBC 12.21 09/04/2023 Hemoglobin 12.3 09/04/2023 Hematocrit 37.7 09/04/2023 Platelet Count 108 09/04/2023 COAGS: APTT 26.2 09/02/2023 PT INR 1.0 09/02/2023 SED RATE/CRP: WSR 5 12/05/2017 WSR Unable to assay. No specimen received. 12/03/2017 WSR Value: Unable to assay. Specimen grossly hemolyzed. Specimen may have been stored or transported frozen. 12/02/2017 WSR 6 06/01/2014 CRP 0.2 12/02/2017 Imaging: Post-operative imaging reviewed and demonstrates R CMN in appropriate and stable position Nichelle Viramontes MD Resident, Orthopaedic Surgery 09/04/2023 6:15 AM Please page [phone] from 5p-6a and on weekends for any issues.[facility]04-01-2024 NoteHNO ID: [id number] Author: SAVANNA FREEMAN LSW Service: Care Management Author Type: Front End Specialist Type: Care Mgt Progress Note Filed: 09/03/2023 16:06 Note Text: CARE MANAGEMENT PROGRESS NOTE SERVICE DATE: 09/03/2023 SERVICE TIME: 4:05 PM LOS: 1 day SW Consult SW attempted to see pt to complete trauma assessment, pt off the floor. SIGNATURE: SANDRA Barbosa PATIENT NAME: Trenton Jackson DATE: September 03, 2023 TIME: 4:05 PM PAGER/CONTACT #: [phone]23 NoteHNO ID: [id number] Author: GHASSAN PÉREZ APRN.CRNA Service: Anesthesiology Author Type: Nurse Bridge Leverman Type: Anesthesia Procedure Notes Filed: 09/03/2023 12:36 Note Text: ANESTHESIOLOGY PROCEDURE NOTE PIV General Information Procedure Start Time/Medication Administration: 09/03/2023 12:25 PM Patient Location: OR Staffing Performed by: anesthesiologist Preparation Sterility Preparation: hand hygiene performed prior to procedure, sterile gloves, drapes, and procedure tray, gown used during line insertion, surgical cap used, mask used, sterile drape used during line insertion, skin prep agent completely dried prior to procedure Site Prep: Chloraprep Procedure Details Indication: need for IV access Needle Size/Type: 18 gauge angiocath Orientation: Right Location: EJ Imaging Guidance Used: Yes Image in Chart: No SIGNATURE: Ghassan Pérez APRN.CRNA PATIENT NAME: Trenton Jackson DATE: September 03, 2023 TIME: 12:35 PM CSN: [id number]04-01-2024 NoteHNO ID: [id number] Author: MOODY HODGE DO Service: Anesthesiology Author Type: Physician Type: Anesthesia Procedure Notes Filed: 07/04/2024 23:16 Note Text: ANESTHESIOLOGY PROCEDURE NOTE A-Line General Information Procedure Start Time/Medication Administration: 09/03/2023 12:05 PM Procedure End Time: 09/03/2023 12:05 PM Patient location during procedure: OR Indications: continuous blood pressure monitoring and blood sampling needed Staffing Performed by: anesthesiologist Preparation Sterility Preparation: hand hygiene performed prior to procedure, sterile gloves, drapes, and procedure tray, surgical cap used, mask used, sterile drape used during line insertion, skin prep agent completely dried prior to procedure Site Prep: Chloraprep Procedure Details Catheter Type: arterial line Catheter Size: 20 G Catheter Length: 1.375 in Micropuncture Kit Used: No Guidewire Used: No Laterality: left Site: radial artery Ultrasound Guided: Yes Image in Chart: No Sites: potential access sites evaluated, selected vessel patent, concurrent real time ultrasound visualization of vascular needle entry Vessel: target vessel identified Line Secured: tape and Tegaderm Events Events: patient tolerated procedure well with no complications SIGNATURE: Ghassan Pérez APRN.CRNA PATIENT NAME: Trenton Jackson DATE: September 03, 2023 TIME: 12:34 PM CSN: [id number]04-01-2024 NoteHNO ID: [id number] Author: GHASSAN PÉREZ APRN.CHUTE MAN Service: Anesthesiology Author Type: Nurse Bridge Leverman Type: Anesthesia Procedure Notes Filed: 09/03/2023 12:34 Note Text: ANESTHESIOLOGY PROCEDURE NOTE Airway General Information Procedure Start Time/Medication Administration: 09/03/2023 12:10 PM Patient location during procedure: OR Timeout Performed Pre-procedure: timeout performed Consent Obtained: Yes Patient identity confirmed: arm band and patient Staffing CHUTE MAN: Ghassan Pérez APRN.CHUTE MAN Performed by: REGINA Indications and Patient Condition Indications for airway management: anesthesia Preoxygenated: yes anesthesia circuit Patient position: sniffing Method: asleep Cricoid Pressure: Yes Difficult Mask: No Final Airway Details Final airway type: endotracheal airway Final Endotracheal Airway: ETT Cuffed: yes Successful intubation technique: direct laryngoscopy Endotracheal tube insertion site: oral Blade: Bruce Blade size: #4 ETT size (mm): 7.5 Measured from: lips Measurement (cm): 21 Placement verified by: chest auscultation and capnometry Cormack-Lehane Classification: grade I - full view of glottis Number of attempts at approach: 1 Failed airway: no Unrecognized esophageal intubation: no Airway not difficult SIGNATURE: Ghassan Pérez APRN.CRNA PATIENT NAME: Trenton Jackson DATE: September 03, 2023 TIME: 12:34 PM CSN: [id number] [facility]04-01-2024 NoteHNO ID: [id number] Author: DARLYN JASSO RN Service: Care Management Author Type: Registered Nurse Type: Care Mgt Initial Assessment Filed: 09/03/2023 11:08 Note Text: CARE MANAGEMENT: ASSESSMENT AND DISCHARGE PLAN SERVICE DATE: September 03, 2023 SERVICE TIME: 10:55 AM PCP: Nathaly Leonard Primary Contact: Extended Emergency Contact Information Primary Emergency Contact: Curry Jackson Jr Address: [address] [place], [place] [id number] [facility] Mobile Relation: Spouse Secondary Emergency Contact: Rebecca Dueñas Address: [place] [address] [facility] Relation: Mother Admission Status: Inpatient Insurance [facility] Discharge Planning requested by: Per Department Practice Potential Transition Plans To Be Determined Advance Directives Current Advance Directive: None Combat Control Attempted to Assist with AD Completion: Yes Action: Education Provided Current Living Arrangements and Support Lives with: Children Type of Residence: Private Residence (House) Does the patient have to climb stairs at home?: Yes;stairs outside the home;stairs within the home Support: Children, Friends/neighbors How do you manage to accomplish the following: Independent: Ambulation;Bathe/Shower;Dress;Meals/Meal Prep;Going to the bathroom;Medication Management Dependent: Transportation to appointments/community Current Services/Equipment Current Post-Acute Service(s): DME Current DME Type: Rollator Scooter Discharge Planning Patient Goal(s): Less pain, General wellness, Be able to go home, Ambulate a little better, Ambulate without stopping [place] of Choice Explained: [place] of Choice Given: Yes Level of Care Discussed: Penitentiary Facility;Inpatient Rehab Facility Are you interested in bedside delivery of your medications? 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 Per EMS, patient feel on the wet bathroom and landed on her right hip. Met with patient at bedside; introduced self and CM role. Prior to admission, patient was independent with ADLs. Patient uses a rollator and has difficulty navigating stairs due to toe amputation. She lives with her daughter and daughter's boyfriend who assist her if needed. Her mother also lives close by and provides transportation since patient is unable to drive. Awaiting PT/OT recommendations for post-acute needs. CM will continue to follow and place referrals as appropriate. She is scheduled for surgery today. Discussed SNF vs [place] at discharge. She is in agreement to this. She wants to go close to [place] where she and her family lives. The patient will need transportation arranged at d/c. SIGNATURE: Darlyn Jasso RN PATIENT NAME: Trenton Jackson DATE: September 03, 2023 TIME: 10:54 AM CONTACT #: [phone]04-01-2024 NoteHNO ID: [id number] Author: MNOICA CHAPARRO APRN.CNP Service: General Surgery Author Type: Nurse Practitioner Type: Progress Notes Filed: 09/03/2023 08:09 Note Text: Trauma Surgery Progress Note SERVICE DATE: 09/03/2023 Trauma Service Pager: For questions or concerns Mon-Fri 6a-5p please page [phone]. After 5pm and on Weekends and Holidays, please page [phone] if in ICU or [phone] if on RNF. SUBJECTIVE: NAEON. Patient reports pain to right hip and is anxious to have surgery SUNSHINE today. Verbalizes understanding of plan for cardiology consult prior to OR today. Denies headache, dizziness, chest pain, SOB, n/v. OBJECTIVE: Vitals: Temp (24hrs), Av.6 ?C (97.8 ?F), Min:36.3 ?C (97.4 ?F), Max:36.8 ?C (98.2 ?F) BP 89/58 Pulse 101 Temp 36.5 ?C (97.7 ?F) (Axillary) Resp 16 Ht 162.6 cm (5' 4) Wt 72.6 kg (160 lb) LMP 08/20/2015 SpO2 93% BMI 27.46 kg/m? O2 Therapy: Nasal Cannula IANDO: Date 09/02/23699 - 09/03/23 0659 09/03/23699 - 09/04/23 0659 Shift 2115-9488 4865-7847 7993-4092 24 Hour Total 5785-8644 1447-0543 5013-3565 24 Hour Total INTAKE Shift Total OUTPUT Urine 1125 1125 300 300 Output ( Indwelling Urinary Catheter 09/02/23 External Facility [facility] 16 Fr) 1125 1125 300 300 Shift Total 1125 1125 300 300 Weight (kg) 72.6 72.6 72.6 72.6 72.6 72.6 72.6 72.6 MEDICATIONS: Current Facility-Administered Medications Medication Dose Route Frequency vancomycin iv piggyback 1 g in D5W 200 mL (VANCOCIN) 1 g INTRAVENOUS ONCE NaCl 0.9% iv flush bag 20 mL INTRAVENOUS PRN gabapentin 300 mg cap(s) (NEURONTIN) 300 mg ORAL TID atorvastatin 80 mg tab(s) (LIPITOR) 80 mg ORAL AT BEDTIME escitalopram oxalate 10 mg tab(s) (LEXAPRO) 10 mg ORAL DAILY baclofen 5 mg tab(s) 5 mg ORAL TID PRN ondansetron 4 mg tab(s) (ZOFRAN) 4 mg ORAL q 6 H PRN Or ondansetron (PF) 4 mg injection (ZOFRAN) 4 mg INTRAVENOUS q 6 H PRN acetaminophen 975 mg tab(s) (TYLENOL) 975 mg ORAL q 6 H senna-docusate 8.6-50 mg 1 tablet (SENNA-S) 1 tablet ORAL BID polyethylene glycol 3350 17 g packet 17 g ORAL DAILY oxyCODONE IR 5-10 mg tab(s) (ROXICODONE) 5-10 mg ORAL q 6 H PRN morphine 2 mg injection 2 mg INTRAVENOUS q 3 H PRN dextrose 15 gram/32 mL 15 g (TRUEPLUS) 15 g ORAL PRN Or glucagon 1 mg injection 1 mg INTRAMUSCULAR PRN Or dextrose 10% iv bolus 12.5 g INTRAVENOUS PRN insulin lispro injection (rapid acting) (ADMElog) SUBCUTANEOUS q 6 H carvedilol 12.5 mg tab(s) (COREG) 12.5 mg ORAL BID w MEALS pantoprazole DR 40 mg tab(s) (PROTONIX) 40 mg ORAL DAILY (6 AM) nicotine 7 mg/24 hr 1 Patch (NICODERM) 1 Patch TRANSDERMAL DAILY And nicotine -- REMOVE patch OTHER DAILY And nicotine - verify patch OTHER q 8 H prochlorperazine 5 mg injection (COMPAZINE) 5 mg INTRAVENOUS q 6 H PRN Labs: Recent Labs 09/03/23 0206 09/02/23 1200 NA 138 135* K 3.5* 3.7 CHLOR 99 94* CO2 32* 28 BUN 6* 5* CREAT 0.56* 0.56* GLUC 130* 312* ANION 7* 13 CA 8.8 9.0 ALB -- 3.5* AST -- 21 ALT -- 20 ALKPHOS -- 119 TBILI -- 0.8 WBC 13.08* 15.50* HB 13.2 14.4 HCT 39.4 42.9 PLT 146* 172 INR -- 1.0 PHYSICAL EXAM: Genl: Appears age appropriate. No acute distress. Resting comfortably. Head/Face: Normocephalic. Atraumatic. Eyes: EOMI. Sclera not icteric, not injected Neck: No mid-line masses. C-spine non-tender. Back: Deferred due to positioning. Resp: Lung sounds are clear bilat. No wheezes. No rales. Breathing is non-labored on 2L @93%. CVS: RRR as above; 2+ pulses at RA, DP, PT bilat. GI: Abdomen is soft, non-tender, not distended. Bowel sounds normoactive. No peritonitis. : Douglas draining clear yellow urine. MSK: Extremities without clubbing, cyanosis, edema. Normal ROM x 3. Limited ROM RLE 2/2 pain. Prior partial left foot amputation. Skin: Warm and dry. Not jaundiced. Neuro: AANDOx3. Strength and sensation normal. KNOTT. GCS15. Psych: Normal mood. Normal affect. Appropriate insight into current situation. ASSESSMENT AND PLAN: Assessment Active Hospital Problems Diagnosis Date Noted Trauma 09/02/2023 Primary hypertension 12/06/2017 Priority: C Overview Note: History: POA Assessment: stable Plan: see Unstable angina.. Dyslipidemia 11/30/2017 Priority: C Overview Note: History: POA Assessment: Component Latest Ref Rng AND Units 12/01/2017 Cholesterol, Total <200 mg/dL 177 Triglyceride <150 mg/dL 179 (H) HDL Cholesterol >39 mg/dL 31 (L) LDL Cholesterol <100 mg/dL 110 (H) Non HDL Cholesterol <130 mg/dL 146 (H) Fasting Time hrs Unknown VLDL Cholesterol <30 mg/dL 36 (H) TC:HDL Ratio <5.10 5.71 (H) LDL:HDL Ratio <2.54 3.55 (H) Plan: Lipitor 80mg. Fall 09/02/2023 Closed displaced intertrochanteric fracture of right femur (HCC) 09/02/2023 Coronary artery disease involving rincon coronary artery of rincon heart without angina pectoris 07/21/2018 Uncontrolled type 2 diabetes mellitus with hyperglycemia, with long-term current use of i (more content not included)...[facility] 09-03-2023 NoteHNO ID: [id number] Author: ALLI GARCÍA MD Service: Orthopaedic Surgery Author Type: Resident Type: Progress Notes Filed: 09/03/2023 06:34 Note Text: Inpatient Daily Progress Note Assessment and Plan Trenton Jackson is a 53 year old female with a right IT femur fx Management per trauma Cardiology consulted for cardiac clearance prior to OR Non-weightbearing of the right lower extremity Pain control Ice to the right hip as needed NPO IVF DVT PPX: SCDs to the bilateral lower extremities; will hold DVT chemicalPPX at this time for OR on 09/02 Consent for surgery to be obtained and placed in chart Subjective No acute events overnight. Physical Examination Vitals BP 89/58 Pulse 101 Temp 36.5 ?C (97.7 ?F) (Axillary) Resp 16 Ht 162.6 cm (5' 4) Wt 72.6 kg (160 lb) LMP 08/20/2015 SpO2 93% BMI 27.46 kg/m? General No acute distress. Right Lower Extremity Alignment normal. No gross deformities. No swelling, ecchymosis, erythema. No open wounds, lacerations, abrasions. Compartments of the thigh and leg are soft and compressible. Moderate tenderness to palpation about the groin Motor intact EHL/DF/PF. Sensation intact to light touch [place]/sa/sp/dp/t. Brisk capillary refill to toes. Labs Recent Labs 09/03/23 0206 09/02/23 1200 NA 138 135* K 3.5* 3.7 CHLOR 99 94* CO2 32* 28 BUN 6* 5* CREAT 0.56* 0.56* GLUC 130* 312* ANION 7* 13 CA 8.8 9.0 ALB -- 3.5* AST -- 21 ALT -- 20 ALKPHOS -- 119 TBILI -- 0.8 WBC 13.08* 15.50* HB 13.2 14.4 HCT 39.4 42.9 PLT 146* 172 INR -- 1.0 Imaging NNI Assessment Active Hospital Problems Diagnosis Date Noted Trauma 09/02/2023 Primary hypertension 12/06/2017 Priority: C Overview Note: History: POA Assessment: stable Plan: see Unstable angina.. Dyslipidemia 11/30/2017 Priority: C Overview Note: History: POA Assessment: Component Latest Ref Rng AND Units 12/01/2017 Cholesterol, Total <200 mg/dL 177 Triglyceride <150 mg/dL 179 (H) HDL Cholesterol >39 mg/dL 31 (L) LDL Cholesterol <100 mg/dL 110 (H) Non HDL Cholesterol <130 mg/dL 146 (H) Fasting Time hrs Unknown VLDL Cholesterol <30 mg/dL 36 (H) TC:HDL Ratio <5.10 5.71 (H) LDL:HDL Ratio <2.54 3.55 (H) Plan: Lipitor 80mg. Fall 09/02/2023 Closed displaced intertrochanteric fracture of right femur (HCC) 09/02/2023 Uncontrolled type 2 diabetes mellitus with hyperglycemia, with long-term current use of insulin (HCC) 06/08/2018 Alli García MD Orthopaedic Surgery Pager #[phone] [facility] 02[facility]03[facility] NoteHNO ID: [id number] Author: VIRGINIA BOSE [facility] Service: Pharmacy Author Type: Pharmacist Type: Plan of Care Filed: 09/06/2023 15:35 Note Text: PHARMACY MEDICATION REVIEW Patient Name: Trenton Jackson : 1970 The following medications were updated within the DIANETICIST medication list based on discharge note from [place] 06/2023 - patient likely nonadherent with medications prior to admission based on fill history: Medications ADDED to DIANETICIST medication list Carvedilol 12.5 mg tablet; Take 12.5 mg BID Cholecalciferol 1000 unit tablet; Take 1000 unit daily Clopidogrel 75 mg tablet; Take 75 mg daily Dapagliflozin 10 mg tablet; Take 10 mg daily Furosemide 40 mg tablet; Take 40 mg BID Pantoprazole 40 mg tablet; Take 40 mg daily Sacubitril 24 mg -valsartan 26 mg (Entresto) tablet; Take 1 tablet BID Spironolactone 50 mg tablet; Take 50 gm daily Medications CHANGED on DIANETICIST medication list Escitalopram 10 mg tablet; Take 10 mg daily Medications REMOVED from DIANETICIST medication list Acetaminophen (no recent fills) Baclofen (from 2019, no recent fills) Benzocaine (from 2015, no recent fills) Buspirone (from 2019, no recent fills) Dicyclomine (from 2017, no recent fills) Ibuprofen Insulin lispro (from 2018, no recent fills) Lisinopril (now on Entresto) Metoprolol (more recently on carvedilol) Omeprazole (pt on pantoprazole per [place] 06/2023 discharge summary) Oxycodone-acetaminophen (last fill #14 tabs in 05/2023 per [facility]) Ranolazine (from 2018, no recent fills) Additional comments: N/A The below information represents the best possible medication history: Yes, but would recommend confirming prescriptions with patient/family when able. Patient declined to answer questions and the number for in chart would not connect on 09/02/23. Medication history completed by: Pharmacist: Virginia Bose [facility] Source of history: Care Everywhere records Medication nonadherence identified: Unable to assess Reconciliation completed: Yes Completed by: YOLANDA Patient interested in Bedside Delivery Services or using OP Pharmacy at discharge? Unable to assess Preferred outpatient pharmacy: [facility] [place] [address] - [address] [facility] [phone] [facility] [address] [place] [address] [phone] [facility] - [phone] Allergies: Latex Itching Comment:Red and dry cracking skin Prior to Admission Medications Prescriptions Last Dose Informant Patient Reported? Taking? Blood Pressure Monitor (BLOOD PRESSURE KIT) kit No No Si Each once daily. Blood-Glucose Meter (FREESTYLE LITE METER) monitoring kit No No Sig: Check sugars 4 times a day DX E11.8 ENTRESTO 24-26 mg tablet Yes No Sig: Take 1 tablet by mouth two times a day. VENTOLIN HFA 90 mcg/actuation inhaler No No Sig: Inhale 2 Puffs as instructed every 4 hours as needed for Wheezing/Shortness of Breath. aspirin, enteric coated (ASPIRIN, ENTERIC COATED) 81 mg EC tablet No No Sig: Take 1 tablet by mouth once daily. atorvastatin (LIPITOR) 80 mg tablet No No Sig: Take 1 tablet by mouth daily at bedtime. Patient not taking: Reported on 07/01/2019 blood sugar diagnostic (FREESTYLE TEST) test strip No No Sig: Check sugars 4 times/d. Use as directed. carvedilol (COREG) 12.5 mg tablet Yes No Sig: Take 12.5 mg by mouth two times a day. cholecalciferol (VITAMIN D3) 1,000 unit tab tablet Yes No Sig: Take 1,000 Units by mouth once daily. clopidogrel (PLAVIX) 75 mg tablet Yes No Sig: Take 75 mg by mouth once daily. dapagliflozin propanediol (FARXIGA) 10 mg tablet Yes Yes Sig: Take 10 mg by mouth once daily. escitalopram oxalate (LEXAPRO) 10 mg tablet OTHER Yes No Sig: Take 10 mg by mouth once daily. furosemide (LASIX) 40 mg tablet Yes No Sig: Take 40 mg by mouth two times a day. gabapentin (NEURONTIN) 300 mg capsule Yes No Sig: Take 300 mg by mouth three times daily. insulin glargine (LANTUS SOLOSTAR, BASAGLAR KWIKPEN) 100 unit/mL (3 mL) inpn No No Sig: Inject 40 Units subcutaneously twice daily. Patient taking differently: Inject 20 Units subcutaneously two times a day. insulin needles, DISPOSABLE, (UNIFINE PENTIPS) 31 gauge x 5/16 ndle No No Sig: Use with insulin injections nicotine (NICODERM) 7 mg/24 hr Yes No Sig: Apply 1 Patch as directed every 24 hours. nitroglycerin sublingual (NITROQUICK) 0.4 mg SL tablet No No Sig: Dissolve 1 tablet under the tongue every 5 minutes as needed for Chest Pain for up to 3 doses. ondansetron orally disintegrating (ZOFRAN ODT) 4 mg disintegrating tablet No No Sig: Take 1 tablet by mouth every 6 hours as needed. Patient taking differently: Take 4 mg by mouth every 8 hours as needed for nausea/vomiting. pantoprazole DR (PROTONIX) 40 mg tablet Yes No Sig: Take 40 mg by mouth once daily. spironolactone (ALDACTONE) 50 mg tablet Yes No Sig: Take 50 mg by mouth once daily. Facility-Administered Medications: None (more content not included)...[facility]03-31-2024 History of Past illness Narrative* Problem Noted Date Diagnosed Date Resolved Date Trauma 09/02/2023 09/07/2023 Fall 09/02/2023 09/07/2023 Acute diverticulitis 06/08/2018 019 Last Assessment & Plan: Assessment: Improving PLAN: Continue IV ceftriaxone and flagyl with plan to switch to PO at time of discharge Advance diet as tolerated PRN IV reglan for N/V Gi following; appreciate recs Avoid opioids due to constipation exacerbating pain Constipation 06/08/2018 06/12/2018 Last Assessment & Plan: Assessment: Hard stools last night PLAN: Avoid opioids due to constipation worsening pain. Repeat doses of Miralax and dulcolax suppository per GI recommendation GI consult documented as of this encounter (statuses as of 09/14/2023) [facility]01-13-2024 Discharge summary Author Jeremy Alexander [facility] June 16, 2023 9:45am Note Date/Time June 16, 2023 9 :20am [facility] Medical Records Department [address] [place] [address] Discharge Summary 06/16/23 0920 MR#: [id number] Acct: [id number] Name: TRENTON JACKSON Rep #:[id number] : 1970 52 From: Jeremy Ahuja PCP: [facility] St atus:ADM IN Location: [place] [id number] Providers Date of Admission: 06/13/23 Date of Discharge: 06/16/23 Primary Care Physician: [facility] Consultations 06/15/23 15:32 Consult: Podiatry Routine Consulting Provider: Moody Gallagher Reason for Consult: Left lateral malleolus avulsion fracture EMERGENT Consult: No MD Notified: Yes Date Notified: 06/15/23 Time Notified: 15:32 Method of Notification: Text Reason For Visit: ACUTE ON CHRONIC HFREF Diagnosis Discharge Diagnosis (1) CHF (congestive heart failure): Status: Acute Code(s): I50.9 - Heart failure, unspecified (2) Acute dyspnea: Status: Acute Code(s): R06.00 - Dyspnea, unspecified Plan Patient admitted with shortness of breath and lower extremity swelling that is started suddenly day before admission. She could not catch her breath. Patientis on Lasix at home. Denies fever. #Acute on chronic exacerbation of combined HF: Patient is still in the ER admitted last night for PCU: Complaining of mild chest pain in the middle but noradiation.Serial troponins are negative.BNP elevated at 529. I * EKG showed no acute ST changes * CT chest showed no PE but showed cardiomegaly with mild bilateral pleural effusions and early congestive heart failure. * on IV lasix 40mg bid. Heart failure core measures including intake and output, fluid restriction less than 1500 mL, daily weight monitoring, kidney and electrolytes monitoring. * 2D echo from showed EF of 15% with severe segmental systolic dysfu nction and stage 3 diastolic dysfunction * titrate oxytgen to maintain sats >90% * breathing treatment with bronchodilators 06/14: Blood pressure 94/61 heart rate 72. Lasix is hold. Patient also having diarrhea.. BP systolic low 100 since last night. I will start on Ringer lactate 2 L at about 75 mill per hour as patient is very dehydrated. 06/15: Blood pressure is improved 116/83. Lasix from tomorrow AM. Mild hypokalemia potassium replaced. 06/16: Blood pressure in normal range. Patient is euvolemic. Lasix resumed. Prescription given for increased dose of spironolactone 50 mg daily. Continue furosemide 40 mg twice daily. Follow-up in cardiology clinic Acute gastroenteritis for last 2 days: Yesterday she had nausea vomiting today diarrhea. Mild abdominal cramps.Stool sample ordered. No exam finding mild nonspecific tenderness otherwise benign. 06/15: Acute gastroenteritis has resolved. Dehydration resolved. Left transmetatarsal amputation with history of diabetic foot in the past: Patient complained of left hip pain. X-ray of left ankle was done which shows old fracture of left malleolus but the fracture was not present in the x-ray of May 2023. Podiatry is consulted for further opinion. Left foot cam boot and conservative management. #Hypoxia due to acute on chronic combined heart failure 06/14: Hypoxia has resolved. #History of CAD and peripheral arterial disease * likely an ischemic cardiomyopathy due to echo findings as above * on aspirin and carvedilol as well as plavix and high intensity statin * Patient had left TMA and right second toe amputation. Patient also had a stent in right leg probably SFA patient is a current smoker. Continue baby aspirin and Plavix. #Hypertension; on carvedilol and spironolactone. Not on SELENE-I/ARB The patient is started on Entresto 24-26 1 tablet twice daily. #Hyperlipidemia: on statin #GERD: on PPI #Anxiety and depression: on lexapro #Type 2 diabetes mellitus * poorly controlled * last A1C in 04/2023 was 11. * on lantus 25 units bid * Continue Accu-Cheks since been on sliding scale insulin.Glucose is 300. 06/16: Good [place] Accu-Cheks low 81, 91. 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 Lantus insulin dose decreased From 25 to 20 units subcutaneous twice daily. DVT prophylaxis: lovenox Code status: full code * Patient counseled extensively about different types of CODE STATUS including full code, DNR CCA and DNR CCA. Patient elects to be full code. Discharge medication reconciliation done. Discharge follow-up instructions completed. Discharge process discussed with the patient and all questions wereanswered to patient's satisfaction. Follow with PCP in 1 to 2 weeks Total time spent, exact 35 minutes on discharge meds reconciliation, examination, coordination of care with nurses and ancillary staff, review of imaging and blood test and discussion with the patient on follow-up instructions. Laboratory Results 06/15/23 09:01: Troponin I High Sens 17 06/15/23 10:55: POC Glucose 189 H 06/15/23 12:11: POC Glucose 219 H 06/15/23 17:06: POC Glucose 91 06/15/23 22:31: POC Glucose 172 H 06/16/23 05:52: Sodium 139, Potassium 3.7, Chloride 105, Carbon Dioxide 27.0, Anion Gap 7, BUN 14, Creatinine 0.67, Estim Creat Clear Calc 107.78, Est GFR (MDRD) Af Amer 119, Est GFR (MDRD) Non-Af 98, BUN/Creatinine Ratio 20.9 H, Glucose 65 L, Calcium 8.9 06/16/23 07:45: POC Glucose 81 Clinical Impression(s) from Imaging Studies Chest CTA 06/12/23 21:05 IMPRESSION: Negative CTA chest examination, without a demonstrated pulmonary embolism or arterial dissection. Cardiomegaly with mild bilateral pleural effusions and early congestive heart failure. Right adrenal adenoma measuring 2.2 cm. No further follow-up imaging recommended. Left upper no pole simple cyst measuring 2 cm, with no further follow-up imaging recommended. Electronically Signed: Laura Sam MD at 23:00 EST , Ankle X-Ray 06/15/23 08:21 IMPRESSION: Old avulsion fracture of the lateral malleolus. Medications at Discharge Home Medications cholecalciferol (vitamin D3) 25 mcg (1,000 unit) tablet 1,000 unit PO DAILY vitamin 07/25/22 calcium carbonate 500 mg calcium (1,250 mg) tablet 1 tablet PO DAILY supplement 08/09/22 aspirin 81 mg capsule 81 mg PO DAILY heart health 08/10/22 nicotine 21 mg/24 hr daily transdermal patch 21 mg transdermal DAILY stop smoking #30 ea 09/02/22 atorvastatin 80 mg tablet 80 mg PO DAILY cholesterol #30 tabs 02/03/23 clopidogrel 75 mg tablet 75 mg PO DAILY anti platelet #30 tabs 02/03/23 escitalopram oxalate 10 mg tablet (Lexapro) 10 mg PO DAILY mental health #30 tabs 02/03/23 dapagliflozin propanediol 10 mg tablet (Farxiga) 10 mg PO DAILY diabetes #90 tabs 03/26/23 pantoprazole 40 mg tablet,delayed release 40 mg PO DAILY reflux 04/18/23 simethicone 125 mg capsule 125 mg PO TID-QID PRN abdominal distention 04/18/23 carvedilol 12.5 mg tablet 12.5 mg PO BIDCM #60 tabs 05/07/23 furosemide 40 mg tablet 40 mg PO BIDLX #60 tabs 05/07/23 sacubitril 24 mg-valsartan 26 mg tablet (Entresto) 1 tab PO BID 30 days #60 tabs107/08/22 gabapentin 300 mg capsule 300 mg PO TID #90 caps 05/22/23 insulin glargine 100 unit/mL subcutaneous solution (Lantus U-100 Insulin) 20 unit (0.2 mL) subcut BID diabetes #10 mL 06/16/23 spironolactone 50 mg tablet 50 mg PO DAILY 30 days #30 tabs 06/16/23 Physical Exam Narrative Seen and examined. Patient is dehydrated yesterday and therefore on IV fluid. Mild leg swelling. Patient complained of left heel pain. She has left TMA. X-ray of ankle ordered. Her diarrhea and abdominal cramps have resolved. Physical exam General: Alert, Oriented x3, Cooperative. Well-hydrated. HEENT: Pale conjunctiva atraumatic, PERRLA, EOMI, Normocephalic Oral: Oral mucosa moist. No Gingival or Mucosal Lesions/ Ulcerations Neck: Supple, No JVD, Negative Carotid Bruits Lungs: Air entry diminished in bilateral lung bases. No crepitation/rhonchi Cardiovascular: Regular rate, Regular Rhythm, Normal S1, Normal S2, no murmur. Decreased pulsation of DIANETICIST and dorsalis artery left more than right. Abdomen: Bowel Sounds Present, Soft, Non Tender, Non-Distended : No renal angle tenderness. No suprapubic tenderness. Extremities: Bilateral lower leg/ankle edema improving. Capillary Refill Less than 3 Seconds Skin: Shiny smooth skin with no hair suggestive of cutaneous signs of PAD Musculoskeletal: Mild tenderness over left heel. Left TMA. Right second toe amputation. Neurological: Cranial nerves II-XII grossly intact, DTR 2+/4. No acute focal neurological deficit. Psych/Mental Status: Flat affect. Weight / BMI Weight Weight: 175 lb 1.599 oz Body Mass Index (BMI) 27.4 ABG / Lab / Microbiology Data 06/15/23 05:49 06/16/23 05:52 Laboratory: Laboratory Results - last 24 hr 06/15/23 09:01: Troponin I High Sens 17 06/15/23 10:55: POC Glucose 189 H 06/15/23 12:11: POC Glucose 219 H 06/15/23 17:06: POC Glucose 91 06/15/23 22:31: POC Glucose 172 H 06/16/23 05:52: Sodium 139, Potassium 3.7, Chloride 105, Carbon Dioxide 27.0, Anion Gap 7, BUN 14, Creatinine 0.67, Estim Creat Clear Calc 107.78, Est GFR (MDRD) Af Amer 119, Est GFR (MDRD) Non-Af 98, BUN/Creatinine Ratio 20.9 H, Glucose 65 L, Calcium 8.9 06/16/23 07:45: POC Glucose 81 Radiography Diagnostic Testing: Radiology Impression Ankle X-Ray 06/15/23 08:21 IMPRESSION: Old avulsion fracture of the lateral malleolus. Electronically Signed: Ryan Tejeda MD at 12:33 EST , D/C Instructions Discharge Diet: Low fat / Low cholesterol and 2000 mg Sodium Diet Weight Bearing Status: Weight bearing as tolerated Call your doctor if you observe: Fever of 101 or Higher, Coldness, Increased Pain, Numbness or Tingling, Change in Color, Inability to urinate, Inability to have a bowel movement, Using more than 1 pad per hour, Shortness of breath, Dizziness, Fainting spells, Swelling in the ankles, Chest pain, Prolonged hiccupping, Increased palpitations (irregular heartbeat) and Calf discomfort When: IN 2 WEEKS Meaningful Use Info Meaningful Use Diagnoses (Choose all that apply): CHF CHF SELENE/ARB ordered at discharge?: Yes Documented LVEF (%): 15 Discharge Plan Admission Admit Date/Time: 06/13/23 01:12 Primary Reason for Your Visit: Acute on chronic heart failure, diarrhea/gastroenteritis Attending Provider: Jeremy Alexander [facility] Providers: Talisha Boykin; Moody Gallagher Discharge Orders/Prescriptions Prescriptions: New spironolactone 50 mg Tablet 50 mg PO DAILY 30 Days Qty: 30 2RF Rx Instructions: Hold for hyperkalemia, serum potassium more than 5.0 Continued calcium carbonate 500 mg calcium (1,250 mg) tablet 1 tablet PO DAILY pantoprazole 40 mg tablet,delayed release (DR/EC) 40 mg PO DAILY simethicone 125 mg capsule 125 mg PO TID-QID PRN (Reason: abdominal distention) cholecalciferol (vitamin D3) 25 mcg (1,000 unit) tablet 1,000 unit PO DAILY Patient Comments: TAKE 1 TABLET DAILY aspirin 81 mg Capsule 81 mg PO DAILY nicotine 21 mg/24 hr Patch 24 Hour 21 mg transdermal DAILY Qty: 30 0RF clopidogrel 75 mg Tablet 75 mg PO DAILY Qty: 30 0RF Patient Comments: patient stated pretty sure I still take that atorvastatin 80 mg tablet 80 mg PO DAILY Qty: 30 0RF escitalopram oxalate [Lexapro] 10 mg tablet 10 mg PO DAILY Qty: 30 0RF carvedilol 12.5 mg Tablet 12.5 mg PO BIDCM Qty: 60 0RF Entresto 24-26 mg Tablet 1 tab PO BID 30 Days Qty: 60 0RF furosemide 40 mg Tablet 40 mg PO BIDLX Qty: 60 0RF gabapentin 300 mg capsule 300 mg PO TID Qty: 90 0RF Rx Instructions: Take 300 mg tablet only twice a day for the first 3 days then you may continue through 100 mg 3 times a day for the remainder of the prescription dapagliflozin propanediol [Farxiga] 10 mg tablet 10 mg PO DAILY Qty: 90 3RF Patient Comments: patient stated I know I am supposed to be taking this one but I never got a notification from the pharmacy to come pick it up Changed insulin glargine [Lantus U-100 Insulin] 100 unit/mL solution 20 unit subcut BID Qty: 10 2RF Rx Instructions: Hold if glucose less than 130 mg/dl Discontinued spironolactone 25 mg Tablet 25 mg PO DAILY Qty: 30 0RF Referrals / Follow Up: Yesenia Zambrano PA [Med Staff - Adv Practice Prof] - Within [address] [facility] [Primary Care Provider] - Moody Gallagher DPM [Med Staff - Active Staff] - Within 2 Weeks (For left ankle fracture. Status post TMA.) Disposition Disposition (needs filled in before D/C Order can be placed): Home, Self Care Charges/Coding Visit Charges Inpatient E&M: 16225 Disch Hosp >30min 06/16/23 0945 <Electronically signed by Jeremy Alexander MD> Cosigner Signature (if applicable): CC: Dr. Jeremy Alexander MD; [facility]~ Signed [facility] Work Phone: [phone] 207-445301-13-2024 Discharge summary Author Jeremy Alexander [facility] June 16, 2023 9:20am Note Date/Time June 16, 2023 8 :42am [facility] Medical Records Department [address] [place] [address] Discharge Summary 06/16/23 0842 MR#: [id number] Acct: [id number] Name: TRENTON JACKSON Rep #:[id number] : 1970 52 From: Jeremy Ahuja PCP: [facility] St atus:ADM IN Location: [place] [address] Providers Date of Admission: 06/13/23 Primary Care Physician: [facility] Consultations 06/15/23 15:32 Consult: Podiatry Routine Consulting Provider: Moody Gallagher Reason for Consult: Left lateral malleolus avulsion fracture EMERGENT Consult: No MD Notified: Yes Date Notified: 06/15/23 Time Notified: 15:32 Method of Notification: Text Reason For Visit: ACUTE ON CHRONIC HFREF Diagnosis Discharge Diagnosis (1) CHF (congestive heart failure): Status: Acute Code(s): I50.9 - Heart failure, unspecified (2) Acute dyspnea: Status: Acute Code(s): R06.00 - Dyspnea, unspecified Plan Patient admitted with shortness of breath and lower extremity swelling that is started suddenly day before admission. She could not catch her breath. Patient is on Lasix at home. Denies fever. #Acute on chronic exacerbation of combined HF: Patient is still in the ER admitted last night for PCU: Complaining of mild chest pain in the middle but noradiation.Serial troponins are negative.BNP elevated at 529. I * EKG showed no acute ST changes * CT chest showed no PE but showed cardiomegaly with mild bilateral pleural effusions and early congestive heart failure. * on IV lasix 40mg bid. Heart failure core measures including intake and output, fluid restriction less than 1500 mL, daily weight monitoring, kidney and electrolytes monitoring. * 2D echo from showed EF of 15% with severe segmental systolic dysfunction and stage 3 diastolic dysfunction * titrate oxytgen to maintain sats >90% * breathing treatment with bronchodilators 06/14: Blood pressure 94/61 heart rate 72. Lasix is hold. Patient also having diarrhea.. BP systolic low 100 since last night. I will start on Ringer lactate 2 L at about 75 mill per hour as patient is very dehydrated. 06/15: Blood pressure is improved 116/83. Lasix from tomorrow AM. Mild hypokalemia potassium replaced. Acute gastroenteritis for last 2 days: Yesterday she had nausea vomiting today diarrhea. Mild abdominal cramps.Stool sample ordered. No exam finding mild nonspecific tenderness otherwise benign. 06/15: Acute gastroenteritis has resolved. Dehydration resolved. Left transmetatarsal amputation with history of diabetic foot in the past: Patient complained of left hip pain. X-ray of left ankle was done which shows old fracture of left malleolus but the fracture was not present in the x-ray of May 2023. Podiatry is consulted for further opinion. Left foot cam boot and conservative management. #Hypoxia due to acute on chronic combined heart failure 06/14: Hypoxia has resolved. #History of CAD and peripheral arterial disease * likely an ischemic cardiomyopathy due to echo findings as above * on aspirin and carvedilol as well as plavix and high intensity statin * Patient had left TMA and right second toe amputation. Patient also had a stent in right leg probably SFA patient is a current smoker. Continue baby aspirin and Plavix. #Hypertension; on carvedilol and spironolactone. Not on SELENE-I/ARB The patient is started on Entresto 24-26 1 tablet twice daily. #Hyperlipidemia: on statin #GERD: on PPI #Anxiety and depression: on lexapro #Type 2 diabetes mellitus * poorly controlled * last A1C in 04/2023 was 11. * on lantus 25 units bid * Continue Accu-Cheks since been on sliding scale insulin.Glucose is 300. * DVT prophylaxis: lovenox Code status: full code * Patient counseled extensively about different types of CODE STATUS including full code, DNR CCA and DNR CCA. Patient elects to be full code. Laboratory Results 06/14/23 22:18: POC Glucose 193 H 06/15/23 05:49: WBC 6.5, RBC 4.70, Hgb 12.0, Hct 38.5, MCV 81.9, MCH 25.5 L, MCHC 31.2 L, RDW Std Deviation 41.6, RDW Coeff of Spencer 14.1, Plt Count 201, MPV 10.2, Immature Gran % (Auto) 0.500, Neut % (Auto) 61.2, Lymph % (Auto) 22.9, Erie % (Auto) 8.9, Eos % (Auto) 5.7 H, Baso % (Auto) 0.8, Absolute Neuts (auto) 4.0, Absolute Lymphs (auto) 1.49, Nucleated RBC % 0, Sodium 140, Potassium 3.1 L, Chloride 101, Carbon Dioxide 32.0, Anion Gap 7, BUN 15, Creatinine 0.72, EstimCreat Clear Calc 100.30, Est GFR (MDRD) Af Amer 110, Est GFR (MDRD) Non-Af 91, BUN/Creatinine Ratio 20.9 H, Glucose 100, Calcium 8.8, Phosphorus 4.9, Magnesium2.1 06/15/23 08:12: POC Glucose 107 H 06/15/23 09:01: Troponin I High Sens 17 06/15/23 10:55: POC Glucose 189 H 06/15/23 12:11: POC Glucose 219 H 06/15/23 17:06: POC Glucose 91 Clinical Impression(s) from Imaging Studies Chest CTA 06/12/23 21:05 IMPRESSION: Negative CTA chest examination, without a demonstrated pulmonary embolism or arterial dissection. Cardiomegaly with mild bilateral pleural effusions and early congestive heart failure. Right adrenal adenoma measuring 2.2 cm. No further follow-up imaging recommended. Left upper no pole simple cyst measuring 2 cm, with no further follow-up imaging recommended. Electronically Signed: Laura Sam MD at 23:00 EST , Ankle X-Ray 06/15/23 08:21 IMPRESSION: Old avulsion fracture of the lateral malleolus. Clinical Impression(s) from Imaging Studies Chest CTA 06/12/23 21:05 IMPRESSION: Negative CTA chest examination, without a demonstrated pulmonary embolism or arterial dissection. Cardiomegaly with mild bilateral pleural effusions and early congestive heart failure. Right adrenal adenoma measuring 2.2 cm. No further follow-up imaging recommended. Left upper no pole simple cyst measuring 2 cm, with no further follow-up imaging recommended. Laboratory Results 06/12/23 20:30: WBC 8.0, RBC 4.92, Hgb 12.7, Hct 40.0, MCV 81.3, MCH 25.8 L, MCHC 31.8 L, RDW Std Deviation 41.9, RDW Coeff of Spencer 14.4, Plt Count 150, MPV 11.3, Immature Gran % (Auto) 0.300, Neut % (Auto) 68.5, Lymph % (Auto) 20.3, Erie % (Auto) 6.0, Eos % (Auto) 3.9, Baso % (Auto) 1.0, Absolute Neuts (auto) 5.5, Absolute Lymphs (auto) 1.61, Nucleated RBC % 0, Differential Comment SCANNED, PT Cancelled, INR Cancelled, APTT Cancelled, Sodium 136, Potassium 4.0,Chloride 103, Carbon Dioxide 27.0, Anion Gap 6, BUN 9, Creatinine 0.75, Estim Creat Clear Calc 140.88, Est GFR (MDRD) Af Amer 105, Est GFR (MDRD) Non-Af 86, BUN/Creatinine Ratio 12.0, Glucose 272 H, Calcium 9.1, Troponin I High Sens 22, B-Natriuretic Peptide 596.3 H 06/12/23 22:05: PT 12.7, INR 1.0, APTT 27.5 06/13/23 05:39: WBC 8.5, RBC 4.73, Hgb 12.2, Hct 38.5, MCV 81.4, MCH 25.8 L, MCHC 31.7 L, RDW Std Deviation 42.3, RDW Coeff of Spencer 14.3, Plt Count 170, MPV 9.8, Immature Gran % (Auto) 0.600, Neut % (Auto) 79.1 H, Lymph % (Auto) 11.4 L, Erie % (Auto) 4.9, Eos % (Auto) 3.2, Baso % (Auto) 0.8, Absolute Neuts (auto) 6.8, Absolute Lymphs (auto) 0.97, Nucleated RBC % 0, Sodium 137, Potassium 3.8, Chloride 101, Carbon Dioxide 29.0, Anion Gap 7, BUN 8, Creatinine 0.68, Estim Creat Clear Calc 106.20, Est GFR (MDRD) Af Amer 117, Est GFR (MDRD) Non-Af 97, BUN/Creatinine Ratio 11.7, Glucose 276 H, Calcium 8.4 L, Troponin I High Sens 23 06/13/23 07:32: Troponin I High Sens 17 06/13/23 07:50: POC Glucose 300 H 06/13/23 10:51: Troponin I High Sens 17 Medications at Discharge Home Medications cholecalciferol (vitamin D3) 25 mcg (1,000 unit) tablet 1,000 unit PO DAILY vitamin 07/25/22 calcium carbonate 500 mg calcium (1,250 mg) tablet 1 tablet PO DAILY supplement 08/09/22 aspirin 81 mg capsule 81 mg PO DAILY heart health 08/10/22 nicotine 21 mg/24 hr daily transdermal patch 21 mg transdermal DAILY stop smoking #30 ea 09/02/22 atorvastatin 80 mg tablet 80 mg PO DAILY cholesterol #30 tabs 02/03/23 clopidogrel 75 mg tablet 75 mg PO DAILY anti platelet #30 tabs 02/03/23 escitalopram oxalate 10 mg tablet (Lexapro) 10 mg PO DAILY mental health #30 tabs 02/03/23 dapagliflozin propanediol 10 mg tablet (Farxiga) 10 mg PO DAILY diabetes #90 tabs 03/26/23 pantoprazole 40 mg tablet,delayed release 40 mg PO DAILY reflux 04/18/23 simethicone 125 mg capsule 125 mg PO TID-QID PRN abdominal distention 04/18/23 carvedilol 12.5 mg tablet 12.5 mg PO BIDCM #60 tabs 05/07/23 furosemide 40 mg tablet 40 mg PO BIDLX #60 tabs 05/07/23 sacubitril 24 mg-valsartan 26 mg tablet (Entresto) 1 tab PO BID 30 days #60 tabs107/08/22 gabapentin 300 mg capsule 300 mg PO TID #90 caps 05/22/23 insulin glargine 100 unit/mL subcutaneous solution (Lantus U-100 Insulin) 20 unit (0.2 mL) subcut BID diabetes #10 mL 06/16/23 spironolactone 50 mg tablet 50 mg PO DAILY 30 days #30 tabs 06/16/23 Weight / BMI Weight Weight: 175 lb 1.599 oz Body Mass Index (BMI) 27.4 ABG / Lab / Microbiology Data 06/15/23 05:49 06/16/23 05:52 Laboratory: Laboratory Results - last 24 hr 06/15/23 05:49: Phosphorus 4.9, Magnesium 2.1 06/15/23 09:01: Troponin I High Sens 17 06/15/23 10:55: POC Glucose 189 H 06/15/23 12:11: POC Glucose 219 H 06/15/23 17:06: POC Glucose 91 06/15/23 22:31: POC Glucose 172 H 06/16/23 07:45: POC Glucose 81 Radiography Diagnostic Testing: Radiology Impression Ankle X-Ray 06/15/23 08:21 IMPRESSION: Old avulsion fracture of the lateral malleolus. Electronically Signed: Ryan Tejeda MD at 12:33 EST Reading Location ID and State: [facility] / [place] , Service support , D/C Instructions Discharge Diet: Low fat / Low cholesterol and 2000 mg Sodium Diet Weight Bearing Status: Weight bearing as tolerated Call your doctor if you observe: Fever of 101 or Higher, Coldness, Increased Pain, Numbness or Tingling, Change in Color, Inability to urinate, Inability to have a bowel movement, Using more than 1 pad per hour, Shortness of breath, Dizziness, Fainting spells, Swelling in the ankles, Chest pain, Prolonged hiccupping, Increased palpitations (irregular heartbeat) and Calf discomfort When: IN 2 WEEKS Meaningful Use Info Meaningful Use Diagnoses (Choose all that apply): CHF CHF SELENE/ARB ordered at discharge?: Yes Documented LVEF (%): 15 Discharge Plan Admission Admit Date/Time: 06/13/23 01:12 Attending Provider: Jeremy Alexander [facility] Providers: Talisha Boykin; Moody Gallgaher Discharge Orders/Prescriptions Prescriptions: New spironolactone 50 mg Tablet 50 mg PO DAILY 30 Days Qty: 30 2RF Rx Instructions: Hold for hyperkalemia, serum potassium more than 5.0 Continued calcium carbonate 500 mg calcium (1,250 mg) tablet 1 tablet PO DAILY pantoprazole 40 mg tablet,delayed release (DR/EC) 40 mg PO DAILY simethicone 125 mg capsule 125 mg PO TID-QID PRN (Reason: abdominal distention) cholecalciferol (vitamin D3) 25 mcg (1,000 unit) tablet 1,000 unit PO DAILY Patient Comments: TAKE 1 TABLET DAILY aspirin 81 mg Capsule 81 mg PO DAILY nicotine 21 mg/24 hr Patch 24 Hour 21 mg transdermal DAILY Qty: 30 0RF clopidogrel 75 mg Tablet 75 mg PO DAILY Qty: 30 0RF Patient Comments: patient stated pretty sure I still take that atorvastatin 80 mg tablet 80 mg PO DAILY Qty: 30 0RF escitalopram oxalate [Lexapro] 10 mg tablet 10 mg PO DAILY Qty: 30 0RF carvedilol 12.5 mg Tablet 12.5 mg PO BIDCM Qty: 60 0RF Entresto 24-26 mg Tablet 1 tab PO BID 30 Days Qty: 60 0RF furosemide 40 mg Tablet 40 mg PO BIDLX Qty: 60 0RF gabapentin 300 mg capsule 300 mg PO TID Qty: 90 0RF Rx Instructions: Take 300 mg tablet only twice a day for the first 3 days then you may continue through 100 mg 3 times a day for the remainder of the prescription dapagliflozin propanediol [Farxiga] 10 mg tablet 10 mg PO DAILY Qty: 90 3RF Patient Comments: patient stated I know I am supposed to be taking this one but I never got a notification from the pharmacy to come pick it up Changed insulin glargine [Lantus U-100 Insulin] 100 unit/mL solution 20 unit subcut BID Qty: 10 2RF Rx Instructions: Hold if glucose less than 130 mg/dl Discontinued spironolactone 25 mg Tablet 25 mg PO DAILY Qty: 30 0RF Referrals / Follow Up: Yesenia Zambrano PA [Med Staff - Adv Practice Prof] - Within [address] [facility] [place] [Primary Care Provider] - Disposition Disposition (needs filled in before D/C Order can be placed): Home, Self Care Charges/Coding Visit Charges Inpatient E&M: 75318 Disch Hosp >30min 06/16/23 0920 <Electronically signed by Jeremy Alexander MD> Cosigner Signature (if applicable): CC: Dr. Jeremy Alexander MD; [facility]~ Signed [facility] Work Phone: [phone]) [phone] Discharge summary Author Jeremy Alexander [facility] June 16, 2023 9:19am Note Date/Time June 16, 2023 8 :42am [facility] Medical Records Department [address] [place] [address] Instructions for Home/Discharge Instructions 06/16/23 0841 MR#: [id number] Acct: [id number] Name: TRENTON JACKSON Rep #:[id number] : 1970 52 From: Jeremy Ahuja PCP: [facility] St atus:ADM IN Discharge Instructions Diet Discharge Diet: Low fat / Low cholesterol and 2000 mg Sodium Diet Activity Discharge Activity: Return to Normal Activity Weight Bearing Status: Weight bearing as tolerated Dressing / Incision Call your doctor if you observe: Fever of 101 or Higher, Coldness, Increased Pain, Numbness or Tingling, Change in Color, Inability to urinate, Inability to have a bowel movement, Using more than 1 pad per hour, Shortness of breath, Dizziness, Fainting spells, Swelling in the ankles, Chest pain, Prolonged hiccupping, Increased palpitations (irregular heartbeat) and Calf discomfort Follow Up Care When: IN 2 WEEKS Test Results: Test results from this visit will be discussed in further detail at your follow- up appointment, if applicable. Discharge Plan Admission Admit Date/Time: 06/13/23 01:12 Attending Provider: Jeremy Alexander Primary Care Provider: [facility] Consulting Providers: Talisha Boykin; Moody Gallagher Discharge Orders/Prescriptions Prescriptions: New spironolactone 50 mg Tablet 50 mg PO DAILY 30 Days Qty: 30 2RF Rx Instructions: Hold for hyperkalemia, serum potassium more than 5.0 Continued calcium carbonate 500 mg calcium (1,250 mg) tablet 1 tablet PO DAILY pantoprazole 40 mg tablet,delayed release (DR/EC) 40 mg PO DAILY simethicone 125 mg capsule 125 mg PO TID-QID PRN (Reason: abdominal distention) cholecalciferol (vitamin D3) 25 mcg (1,000 unit) tablet 1,000 unit PO DAILY Patient Comments: TAKE 1 TABLET DAILY aspirin 81 mg Capsule 81 mg PO DAILY nicotine 21 mg/24 hr Patch 24 Hour 21 mg transdermal DAILY Qty: 30 0RF clopidogrel 75 mg Tablet 75 mg PO DAILY Qty: 30 0RF Patient Comments: patient stated pretty sure I still take that atorvastatin 80 mg tablet 80 mg PO DAILY Qty: 30 0RF escitalopram oxalate [Lexapro] 10 mg tablet 10 mg PO DAILY Qty: 30 0RF carvedilol 12.5 mg Tablet 12.5 mg PO BIDCM Qty: 60 0RF Entresto 24-26 mg Tablet 1 tab PO BID 30 Days Qty: 60 0RF furosemide 40 mg Tablet 40 mg PO BIDLX Qty: 60 0RF gabapentin 300 mg capsule 300 mg PO TID Qty: 90 0RF Rx Instructions: Take 300 mg tablet only twice a day for the first 3 days then you may continue through 100 mg 3 times a day for the remainder of the prescription dapagliflozin propanediol [Farxiga] 10 mg tablet 10 mg PO DAILY Qty: 90 3RF Patient Comments: patient stated I know I am supposed to be taking this one but I never got a notification from the pharmacy to come pick it up Changed insulin glargine [Lantus U-100 Insulin] 100 unit/mL solution 20 unit subcut BID Qty: 10 2RF Rx Instructions: Hold if glucose less than 130 mg/dl Discontinued spironolactone 25 mg Tablet 25 mg PO DAILY Qty: 30 0RF Referrals / Follow Up: [facility] [Primary Care Provider] - Yesenia Zambrano PA [Med Staff - Adv Practice Prof] - Within 2 Weeks Disposition Disposition (needs filled in before D/C Order can be placed): Home, Self Care 06/16/23918<Electronically signed by Jeremy Alexander MD>Jeremy Alexander MD CC: ALEK Gallagher; Dr. Talisha Boykin MD; [facility] ~ Signed [facility] Work Phone: 1(391) 835-659801-12-2024 Progress note Author Jeremy Alexander [facility] June 15, 2023 5:50pm Note Date/Time June 15, 2023 5 :50pm [facility] Medical Records Department [facility] [place] [address] Progress Note - Hospitalist 06/15/23 1532 MR#: [id number] Acct: [id number] Name: TRENTON JACKSON Rep #:[id number] : 1970 52 From: Jeremy Ahuja PCP: [facility] atus:ADM [place] Location: [place] [address] Reason for Visit Reason for Visit: Diagnoses Heart failure, unspecified (06/13/23) Dyspnea, unspecified (06/13/23) Objective Data Objective Data Vital Signs: Vital Signs Temp Pulse Resp BP Pulse Ox O2 Del Method O2 Flow Rate 96.5 F L 76 16 110/75 99 Room Air 2 06/15/23 15:06 06/15/23 15:06 06/15/23 15:06 06/15/23 15:06 06/15/23 15:06 06/15/23 15:06 06/13/23 10:00 Oxygen Flow Rate (L/min) 2 Oxygen Delivery Method Room Air Weight: 175 lb 1.599 oz Body Mass Index (BMI) 27.4 Intake & Output: Intake and Output for Last 24 Hours 06/13/23 06/14/23 06/15/23 23:59 23:59 23:59 Intake Total 1300 / 1300 1428 / 1428 1913.25 / 1913.25 Output Total 900 / 900 780 / 780 Balance 400 / 400 1428 / 1428 1133.25 / 1133.25 Lab / Micro Data 06/15/23 05:49 06/15/23 05:49 Labs: Laboratory Results - last 24 hr 06/14/23 17:18: POC Glucose 96 06/14/23 22:18: POC Glucose 193 H 06/15/23 05:49: WBC 6.5, RBC 4.70, Hgb 12.0, Hct 38.5, MCV 81.9, MCH 25.5 L, MCHC 31.2 L, RDW Std Deviation 41.6, RDW Coeff of Spencer 14.1, Plt Count 201, MPV 10.2, Immature Gran % (Auto) 0.500, Neut % (Auto) 61.2, Lymph % (Auto) 22.9, Erie % (Auto) 8.9, Eos % (Auto) 5.7 H, Baso % (Auto) 0.8, Absolute Neuts (auto) 4.0, Absolute Lymphs (auto) 1.49, Nucleated RBC % 0, Sodium 140, Potassium 3.1 L, Chloride 101, Carbon Dioxide 32.0, Anion Gap 7, BUN 15, Creatinine 0.72, EstimCreat Clear Calc 100.30, Est GFR (MDRD) Af Amer 110, Est GFR (MDRD) Non-Af 91, BUN/Creatinine Ratio 20.9 H, Glucose 100, Calcium 8.8, Phosphorus 4.9, Magnesium2.1 06/15/23 08:12: POC Glucose 107 H 06/15/23 09:01: Troponin I High Sens 17 06/15/23 10:55: POC Glucose 189 H 06/15/23 12:11: POC Glucose 219 H Radiography Diagnostic Testing: Radiology Impression Ankle X-Ray 06/15/23 08:21 IMPRESSION: Old avulsion fracture of the lateral malleolus. Electronically Signed: Ryan Tejeda MD at 12:33 EST , Physical Exam Narrative Seen and examined. Patient is dehydrated yesterday and therefore on IV fluid. Mild leg swelling. Patient complained of left heel pain. She has left TMA. X-ray of ankle ordered. Her diarrhea and abdominal cramps have resolved. Physical exam General: Alert, Oriented x3, Cooperative. Well-hydrated. HEENT: Pale conjunctiva atraumatic, PERRLA, EOMI, Normocephalic Oral: Oral mucosa moist. No Gingival or Mucosal Lesions/ Ulcerations Neck: Supple, No JVD, Negative Carotid Bruits Lungs: Air entry diminished in bilateral lung bases. No crepitation/rhonchi Cardiovascular: Regular rate, Regular Rhythm, Normal S1, Normal S2, no murmur. Decreased pulsation of DIANETICIST and dorsalis artery left more than right. Abdomen: Bowel Sounds Present, Soft, Non Tender, Non-Distended : No renal angle tenderness. No suprapubic tenderness. Extremities: Bilateral lower leg/ankle edema improving. Capillary Refill Less than 3 Seconds Skin: Shiny smooth skin with no hair suggestive of cutaneous signs of PAD Musculoskeletal: Mild tenderness over left heel. Left TMA. Right second toe amputation. Neurological: Cranial nerves II-XII grossly intact, DTR 2+/4. No acute focal neurological deficit. Psych/Mental Status: Flat affect. Assessment & Plan Assessment/Plan (1) CHF (congestive heart failure): (2) Acute dyspnea: PLAN: Plan Patient admitted with shortness of breath and lower extremity swelling that is started suddenly day before admission. She could not catch her breath. Patientis on Lasix at home. Denies fever. #Acute on chronic exacerbation of combined HF: Patient is still in the ER admitted last night for PCU: Complaining of mild chest pain in the middle but noradiation.Serial troponins are negative.BNP elevated at 529. I * EKG showed no acute ST changes * CT chest showed no PE but showed cardiomegaly with mild bilateral pleural effusions and early congestive heart failure. * on IV lasix 40mg bid. Heart failure core measures including intake and output, fluid restriction less than 1500 mL, daily weight monitoring, kidney and electrolytes monitoring. * 2D echo from showed EF of 15% with severe segmental systolic dysfunction and stage 3 diastolic dysfunction * titrate oxytgen to maintain sats >90% * breathing treatment with bronchodilators 06/14: Blood pressure 94/61 heart rate 72. Lasix is hold. Patient also having diarrhea.. BP systolic low 100 since last night. I will start on Ringer lactate 2 L at about 75 mill per hour as patient is very dehydrated. 06/15: Blood pressure is improved 116/83. Lasix from tomorrow AM. Mild hypokalemia potassium replaced. Acute gastroenteritis for last 2 days: Yesterday she had nausea vomiting today diarrhea. Mild abdominal cramps.Stool sample ordered. No exam finding mild nonspecific tenderness otherwise benign. 06/15: Acute gastroenteritis has resolved. Dehydration resolved. Left transmetatarsal amputation with history of diabetic foot in the past: Patient complained of left hip pain. X-ray of left ankle was done which shows old fracture of left malleolus but the fracture was not present in the x-ray of May 2023. Podiatry is consulted for further opinion. Left foot cam boot and conservative management. #Hypoxia due to acute on chronic combined heart failure 06/14: Hypoxia has resolved. #History of CAD and peripheral arterial disease * likely an ischemic cardiomyopathy due to echo findings as above * on aspirin and carvedilol as well as plavix and high intensity statin * Patient had left TMA and right second toe amputation. Patient also had a stent in right leg probably SFA patient is a current smoker. Continue baby aspirin and Plavix. #Hypertension; on carvedilol and spironolactone. Not on SELENE-I/ARB The patient is started on Entresto 24-26 1 tablet twice daily. #Hyperlipidemia: on statin #GERD: on PPI #Anxiety and depression: on lexapro #Type 2 diabetes mellitus * poorly controlled * last A1C in 04/2023 was 11. * on lantus 25 units bid * Continue Accu-Cheks since been on sliding scale insulin.Glucose is 300. * DVT prophylaxis: lovenox Code status: full code * Patient counseled extensively about different types of CODE STATUS including full code, DNR CCA and DNR CCA. Patient elects to be full code. Laboratory Results 06/14/23 22:18: POC Glucose 193 H 06/15/23 05:49: WBC 6.5, RBC 4.70, Hgb 12.0, Hct 38.5, MCV 81.9, MCH 25.5 L, MCHC 31.2 L, RDW Std Deviation 41.6, RDW Coeff of Spencer 14.1, Plt Count 201, MPV 10.2, Immature Gran % (Auto) 0.500, Neut % (Auto) 61.2, Lymph % (Auto) 22.9, Erie % (Auto) 8.9, Eos % (Auto) 5.7 H, Baso % (Auto) 0.8, Absolute Neuts (auto) 4.0, Absolute Lymphs (auto) 1.49, Nucleated RBC % 0, Sodium 140, Potassium 3.1 L, Chloride 101, Carbon Dioxide 32.0, Anion Gap 7, BUN 15, Creatinine 0.72, EstimCreat Clear Calc 100.30, Est GFR (MDRD) Af Amer 110, Est GFR (MDRD) Non-Af 91, BUN/Creatinine Ratio 20.9 H, Glucose 100, Calcium 8.8, Phosphorus 4.9, Magnesium2.1 06/15/23 08:12: POC Glucose 107 H 06/15/23 09:01: Troponin I High Sens 17 06/15/23 10:55: POC Glucose 189 H 06/15/23 12:11: POC Glucose 219 H 06/15/23 17:06: POC Glucose 91 Clinical Impression(s) from Imaging Studies Chest CTA 06/12/23 21:05 IMPRESSION: Negative CTA chest examination, without a demonstrated pulmonary embolism or arterial dissection. Cardiomegaly with mild bilateral pleural effusions and early congestive heart failure. Right adrenal adenoma measuring 2.2 cm. No further follow-up imaging recommended. Left upper no pole simple cyst measuring 2 cm, with no further follow-up imaging recommended. Electronically Signed: Laura Sam MD at 23:00 EST , Ankle X-Ray 06/15/23 08:21 IMPRESSION: Old avulsion fracture of the lateral malleolus. Clinical Impression(s) from Imaging Studies Chest CTA 06/12/23 21:05 IMPRESSION: Negative CTA chest examination, without a demonstrated pulmonary embolism or arterial dissection. Cardiomegaly with mild bilateral pleural effusions and early congestive heart failure. Right adrenal adenoma measuring 2.2 cm. No further follow-up imaging recommended. Left upper no pole simple cyst measuring 2 cm, with no further follow-up imaging recommended. Laboratory Results 06/12/23 20:30: WBC 8.0, RBC 4.92, Hgb 12.7, Hct 40.0, MCV 81.3, MCH 25.8 L, MCHC 31.8 L, RDW Std Deviation 41.9, RDW Coeff of Spencer 14.4, Plt Count 150, MPV 11.3, Immature Gran % (Auto) 0.300, Neut % (Auto) 68.5, Lymph % (Auto) 20.3, Erie % (Auto) 6.0, Eos % (Auto) 3.9, Baso % (Auto) 1.0, Absolute Neuts (auto) 5.5, Absolute Lymphs (auto) 1.61, Nucleated RBC % 0, Differential Comment SCANNED, PT Cancelled, INR Cancelled, APTT Cancelled, Sodium 136, Potassium 4.0,Chloride 103, Carbon Dioxide 27.0, Anion Gap 6, BUN 9, Creatinine 0.75, Estim Creat Clear Calc 140.88, Est GFR (MDRD) Af Amer 105, Est GFR (MDRD) Non-Af 86, BUN/Creatinine Ratio 12.0, Glucose 272 H, Calcium 9.1, Troponin I High Sens 22, B-Natriuretic Peptide 596.3 H 06/12/23 22:05: PT 12.7, INR 1.0, APTT 27.5 06/13/23 05:39: WBC 8.5, RBC 4.73, Hgb 12.2, Hct 38.5, MCV 81.4, MCH 25.8 L, MCHC 31.7 L, RDW Std Deviation 42.3, RDW Coeff of Spencer 14.3, Plt Count 170, MPV 9.8, Immature Gran % (Auto) 0.600, Neut % (Auto) 79.1 H, Lymph % (Auto) 11.4 L, Erie % (Auto) 4.9, Eos % (Auto) 3.2, Baso % (Auto) 0.8, Absolute Neuts (auto) 6.8, Absolute Lymphs (auto) 0.97, Nucleated RBC % 0, Sodium 137, Potassium 3.8, Chloride 101, Carbon Dioxide 29.0, Anion Gap 7, BUN 8, Creatinine 0.68, Estim Creat Clear Calc 106.20, Est GFR (MDRD) Af Amer 117, Est GFR (MDRD) Non-Af 97, BUN/Creatinine Ratio 11.7, Glucose 276 H, Calcium 8.4 L, Troponin I High Sens 23 06/13/23 07:32: Troponin I High Sens 17 06/13/23 07:50: POC Glucose 300 H 06/13/23 10:51: Troponin I High Sens 17 Charges/Coding Visit Charges Inpatient E&M: 64758 Subs Hosp L2 06/15/23 5630 <Electronically signed by Jeremy Alexander MD> Cosigner Signature (if applicable): CC: ~ Signed [facility] Work Phone: [phone]) 613-180201-11-2024 Progress note Author Jeremy Alexander [facility] June 14, 2023 3:46pm Note Date/Time June 14, 2023 3 :46pm [facility] Medical Records Department [address] [place] [address] [place] [address] Progress Note - Hospitalist 06/14/23 1689 MR#: [id number] Acct: [id number] Name: TRENTON JACKSON Rep #:[id number] : 1970 52 From: Jeremy Ahuja PCP: [facility] atus:ADM IN Location: [place] [address] Reason for Visit Reason for Visit: Diagnoses Heart failure, unspecified (06/13/23) Dyspnea, unspecified (06/13/23) Objective Data Objective Data Vital Signs: Vital Signs Temp Pulse Resp BP Pulse Ox O2 Del Method O2 Flow Rate 98.3 F 72 16 94/61 99 Room Air 2 06/14/23 15:10 06/14/23 15:10 06/14/23 15:10 06/14/23 15:10 06/14/23 15:10 06/14/23 15:10 06/13/23 10:00 Oxygen Flow Rate (L/min) 2 Oxygen Delivery Method Room Air Weight: 175 lb 1.599 oz Body Mass Index (BMI) 27.4 Intake & Output: Intake and Output for Last 24 Hours 06/12/23 06/13/23 06/14/23 23:59 23:59 23:59 Intake Total 1300 / 1300 762 / 762 Output Total 900 / 900 Balance 400 / 400 762 / 762 Lab / Micro Data 06/14/23 08:22 06/14/23 08:22 Labs: Laboratory Results - last 24 hr 06/13/23 22:07: POC Glucose 209 H 06/14/23 08:22: WBC 9.4, RBC 5.24, Hgb 13.5, Hct 43.0, MCV 82.1, MCH 25.8 L, MCHC 31.4 L, RDW Std Deviation 41.9, RDW Coeff of Spencer 14.2, Plt Count 208, MPV 10.3, Immature Gran % (Auto) 0.400, Neut % (Auto) 76.1 H, Lymph % (Auto) 14.9 L,Erie % (Auto) 5.5, Eos % (Auto) 2.3, Baso % (Auto) 0.8, Absolute Neuts (auto) 7.2, Absolute Lymphs (auto) 1.41, Nucleated RBC % 0, Sodium 137, Potassium 3.4 L, Chloride 101, Carbon Dioxide 28.0, Anion Gap 8, BUN 13, Creatinine 0.80, EstimCreat Clear Calc 90.27, Est GFR (MDRD) Af Amer 97, Est GFR (MDRD) Non-Af 80, BUN/Creatinine Ratio 16.2, Glucose 163 H, Calcium 9.3 06/14/23 08:25: POC Glucose 166 H 06/14/23 10:46: POC Glucose 165 H 06/14/23 12:15: POC Glucose 148 H Physical Exam Narrative Seen and examined. Patient has improvement of bilateral leg swelling. She was having nausea and vomiting yesterday in the ER and then started having diarrhea 3 times liquid bowel movement mainly watery. She also feels cramps in the abdomen. Nonspecific cramps all over diffuse with no particular area of initiation. Physical exam General: Alert, Oriented x3, Cooperative. Patient looks dehydrated. HEENT: Pale conjunctiva atraumatic, PERRLA, EOMI, Normocephalic Oral: Oral mucosa dry. No Gingival or Mucosal Lesions/ Ulcerations Neck: Supple, No JVD, Negative Carotid Bruits Lungs: Air entry diminished in bilateral lung bases. No crepitation/rhonchi Cardiovascular: Regular rate, Regular Rhythm, Normal S1, Normal S2, no murmur. Decreased pulsation of DIANETICIST and dorsalis artery left more than right. Abdomen: Bowel Sounds Present, Soft, Non Tender, Non-Distended : No renal angle tenderness. No suprapubic tenderness. Extremities: Bilateral lower leg/ankle edema improving. Capillary Refill Less than 3 Seconds Skin: Shiny smooth skin with no hair suggestive of cutaneous signs of PAD Musculoskeletal: No Tenderness to Palpation of Joints or Extremities. Left TMA. Right second toe amputation. Neurological: Cranial nerves II-XII grossly intact, DTR 2+/4. No acute focal neurological deficit. Psych/Mental Status: Normal Affect, Appropriate. Assessment & Plan Assessment/Plan (1) CHF (congestive heart failure): (2) Acute dyspnea: PLAN: Plan Patient admitted with shortness of breath and lower extremity swelling that is started suddenly day before admission. She could not catch her breath. Patientis on Lasix at home. Denies fever. #Acute on chronic exacerbation of combined HF: Patient is still in the ER admitted last night for PCU: Complaining of mild chest pain in the middle but noradiation.Serial troponins are negative.BNP elevated at 529. I * EKG showed no acute ST changes * CT chest showed no PE but showed cardiomegaly with mild bilateral pleural effusions and early congestive heart failure. * on IV lasix 40mg bid. Heart failure core measures including intake and output, fluid restriction less than 1500 mL, daily weight monitoring, kidney and electrolytes monitoring. * 2D echo from showed EF of 15% with severe segmental systolic dysfunction and stage 3 diastolic dysfunction * titrate oxytgen to maintain sats >90% * breathing treatment with bronchodilators 06/14: Blood pressure 94/61 heart rate 72. Lasix is hold. Patient also having diarrhea.. BP systolic low 100 since last night. I will start on Ringer lactate 2 L at about 75 mill per hour as patient is very dehydrated. Acute gastroenteritis for last 2 days: Yesterday she had nausea vomiting today diarrhea. Mild abdominal cramps.Stool sample ordered. No exam finding mild nonspecific tenderness otherwise benign. #Hypoxia due to acute on chronic combined heart failure 06/14: Hypoxia has resolved. #History of CAD and peripheral arterial disease * likely an ischemic cardiomyopathy due to echo findings as above * on aspirin and carvedilol as well as plavix and high intensity statin * Patient had left TMA and right second toe amputation. Patient also had a stent in right leg probably SFA patient is a current smoker. Continue baby aspirin and Plavix. #Hypertension; on carvedilol and spironolactone. Not on SELENE-I/ARB The patient is started on Entresto 24-26 1 tablet twice daily. #Hyperlipidemia: on statin #GERD: on PPI #Anxiety and depression: on lexapro #Type 2 diabetes mellitus * poorly controlled * last A1C in 04/2023 was 11. * on lantus 25 units bid * Continue Accu-Cheks since been on sliding scale insulin.Glucose is 300. * DVT prophylaxis: lovenox Code status: full code * Patient counseled extensively about different types of CODE STATUS including full code, DNR CCA and DNR CCA. Patient elects to be full code. Clinical Impression(s) from Imaging Studies Chest CTA 06/12/23 21:05 IMPRESSION: Negative CTA chest examination, without a demonstrated pulmonary embolism or arterial dissection. Cardiomegaly with mild bilateral pleural effusions and early congestive heart failure. Right adrenal adenoma measuring 2.2 cm. No further follow-up imaging recommended. Left upper no pole simple cyst measuring 2 cm, with no further follow-up imaging recommended. Laboratory Results 06/12/23 20:30: WBC 8.0, RBC 4.92, Hgb 12.7, Hct 40.0, MCV 81.3, MCH 25.8 L, MCHC 31.8 L, RDW Std Deviation 41.9, RDW Coeff of Spencer 14.4, Plt Count 150, MPV 11.3, Immature Gran % (Auto) 0.300, Neut % (Auto) 68.5, Lymph % (Auto) 20.3, Erie % (Auto) 6.0, Eos % (Auto) 3.9, Baso % (Auto) 1.0, Absolute Neuts (auto) 5.5, Absolute Lymphs (auto) 1.61, Nucleated RBC % 0, Differential Comment SCANNED, PT Cancelled, INR Cancelled, APTT Cancelled, Sodium 136, Potassium 4.0,Chloride 103, Carbon Dioxide 27.0, Anion Gap 6, BUN 9, Creatinine 0.75, Estim Creat Clear Calc 140.88, Est GFR (MDRD) Af Amer 105, Est GFR (MDRD) Non-Af 86, BUN/Creatinine Ratio 12.0, Glucose 272 H, Calcium 9.1, Troponin I High Sens 22, B-Natriuretic Peptide 596.3 H 06/12/23 22:05: PT 12.7, INR 1.0, APTT 27.5 06/13/23 05:39: WBC 8.5, RBC 4.73, Hgb 12.2, Hct 38.5, MCV 81.4, MCH 25.8 L, MCHC 31.7 L, RDW Std Deviation 42.3, RDW Coeff of Spencer 14.3, Plt Count 170, MPV 9.8, Immature Gran % (Auto) 0.600, Neut % (Auto) 79.1 H, Lymph % (Auto) 11.4 L, Erie % (Auto) 4.9, Eos % (Auto) 3.2, Baso % (Auto) 0.8, Absolute Neuts (auto) 6.8, Absolute Lymphs (auto) 0.97, Nucleated RBC % 0, Sodium 137, Potassium 3.8, Chloride 101, Carbon Dioxide 29.0, Anion Gap 7, BUN 8, Creatinine 0.68, Estim Creat Clear Calc 106.20, Est GFR (MDRD) Af Amer 117, Est GFR (MDRD) Non-Af 97, BUN/Creatinine Ratio 11.7, Glucose 276 H, Calcium 8.4 L, Troponin I High Sens 23 06/13/23 07:32: Troponin I High Sens 17 06/13/23 07:50: POC Glucose 300 H 06/13/23 10:51: Troponin I High Sens 17 Charges/Coding Visit Charges Inpatient E&M: 35102 Subs Hosp L2 06/14/23 1546 <Electronically signed by Jeremy Alexander MD> Cosigner Signature (if applicable): CC: ~ Signed [facility] Work Phone: [phone] 400-981601-10-2024 History and physical note Author [facility] June 13, 2023 7:02pm Note Date/Time June 13, 2023 1 2:24[facility] Medical Records Department [address] [place] [id number] History & Physical Exam 06/13/23 0012 MR#: [id number] Acct: [id number] Name: TRENTON JACKSON Rep #:[id number] : 1970 52 From: Talisha Boykin MD PCP: [facility] atus:ADM [place] Location: [facility] [id number] HPI - General General Date of Admission: 06/13/23 Date of Service: 06/13/23 Chief Complaint: fever, shortness of breath HPI Narrative TRENTON JACKSON, is a 52 F with a PMH as outlined who presents via the ED on 06/13/2022 with a complaint of fever as well as shortness of breath and bilaterallower extremity swelling. Her symptoms started hte day before admission and gradually worsened. Shortness of breath worsened with exertion. SHe denied any chest pain, palpitations, dizziness, nausea, vomiting or any other symptoms. Review of systems was otherwise negatiev. She is on lasix which she says she hasbeen compliant with. Vitals in the ED were BP of 129/88, RR of 20, temp of 98.9F and she was saturating at 95% on 4L of oxygen. Her oxygen saturation actually dropped to 83% on room air. CBC and BMP were largely unremarkable. BNP was elevated at 596.3. Initial troponin was negative. EKG showed no acute ST changes. CTA of the chest done showed no evidence of PE and showed cardiomegaly with mild bilateral pleural effusions and early congestive heart failure as well as a right adrenal adenoma measuring 2.2 cm. She has been admitted and managed for acute exacerbation of heart failure. [facility] Medical History Acute dyspnea Aftercare following surgery of the circulatory system Alcohol abuse Amputation toe CAD (coronary artery disease), rincon coronary artery CHF (congestive heart failure) Depression Diabetes type 2, uncontrolled DVT (deep venous thrombosis) Essential hypertension GERD (gastroesophageal reflux disease) Hx of fracture of humerus Hyperlipidemia Hypoxemia Ischemic cardiomyopathy Myocardial infarct Osteoporosis Pericardial effusion Psychiatric disorder Pulmonary embolism Rheumatoid arthritis Seizures Sleep apnea Smoker Substance abuse Toe amputee Home Medications cholecalciferol (vitamin D3) 25 mcg (1,000 unit) tablet 1,000 unit PO DAILY vitamin 07/25/22 [History Last Taken 02/01/23] calcium carbonate 500 mg calcium (1,250 mg) tablet 1 tablet PO DAILY supplement 08/09/22 [History Last Taken 02/01/23] aspirin 81 mg capsule 81 mg PO DAILY heart health 08/10/22 [History Last Taken 02/01/23] nicotine 21 mg/24 hr daily transdermal patch 21 mg transdermal DAILY stop smoking #30 ea 09/02/22 [Rx Last Taken 02/01/23] atorvastatin 80 mg tablet 80 mg PO DAILY cholesterol #30 tabs 02/03/23 [Rx Last Taken Unknown] clopidogrel 75 mg tablet 75 mg PO DAILY anti platelet #30 tabs 02/03/23 [Rx Last Taken Unknown] escitalopram oxalate 10 mg tablet (Lexapro) 10 mg PO DAILY mental health #30 tabs 02/03/23 [Rx Last Taken Unknown] insulin glargine 100 unit/mL subcutaneous solution (Lantus U-100 Insulin) 25 unit subcut BID diabetes 02/27/23 [History Last Taken Unknown] dapagliflozin propanediol 10 mg tablet (Farxiga) 10 mg PO DAILY diabetes #90 tabs 03/26/23 [Rx Last Taken Unknown] pantoprazole 40 mg tablet,delayed release 40 mg PO DAILY reflux 04/18/23 [History Last Taken Unknown] simethicone 125 mg capsule 125 mg PO TID-QID PRN abdominal distention 04/18/23 [History Last Taken Unknown] carvedilol 12.5 mg tablet 12.5 mg PO BIDCM #60 tabs 05/07/23 [Rx Last Taken Unknown] furosemide 40 mg tablet 40 mg PO BIDLX #60 tabs 05/07/23 [Rx Last Taken Unknown] sacubitril 24 mg-valsartan 26 mg tablet (Entresto) 1 tab PO BID 30 days #60 tabs107/08/22 [Rx Last Taken Unknown] spironolactone 25 mg tablet 25 mg PO DAILY #30 tabs 05/07/23 [Rx Last Taken Unknown] gabapentin 300 mg capsule 300 mg PO TID #90 caps 05/22/23 [Rx Last Taken Unknown] Allergy/AdvReac Type Severity Reaction Status Date / Time latex Allergy Hives Verified 05/26/23 09:49 Family History Mother Thyroid disorder Diabetes Hypertension Grandmother Diabetes Uncle Diabetes Aunt Diabetes Other Heart disease Surgical History History of appendectomy History of cholecystectomy Social History household members: spouse and children housing: house Smoking Status: Current every day smoker tobacco type: cigarettes alcohol intake: never substance use type: marijuana what type of physical activity do you participate in: none do you feel safe at home: Yes ROS Constitutional Constitutional: Reports fatigue, fever(s), malaise and weakness; Denies anorexiaor chills Eyes Eyes: Denies change in vision ENT HEENT: Denies dysphagia, headache(s), loss taste/smell or nasal congestion Cardiovascular Cardiovascular: Reports edema, orthopnea, palpitations and paroxysmal nocturnal dyspnea; Denies chest pain or syncope Respiratory/Chest Respiratory/Chest: Reports cough, shortness of breath at rest, shortness of breath with exertion and wheezing Gastrointestinal Gastrointestinal: Denies abdominal pain, constipation, diarrhea, melena, nausea or vomiting Genitourinary Genitourinary: Denies dysuria Musculoskeletal Musculoskeletal: Denies back pain Neurologic Neurologic: Denies confusion, dizziness, focal weakness, headache(s), numbness or weakness Psychiatric Psychiatric: Denies anxiety Endocrine Endocrinology: Denies change in body appearance Vital Signs Vital Signs Vital Signs: 06/12/23 18:57 06/12/23 19:59 06/12/23 19:59 Temperature 97.8 F 98.9 F Temperature Source Temporal Temporal Pulse Rate 89 88 Respiratory Rate 16 16 Respiratory Effort Normal Respiratory Pattern Normal Blood Pressure 126/87 H 134/78 H Blood Pressure Mean 100 96 Pulse Ox 93 92 Oxygen Delivery Method Room Air Room Air Oxygen Flow Rate (L/min) 06/12/23 21:46 06/12/23 21:45 06/12/23 22:56 Temperature Temperature Source Pulse Rate 98 Respiratory Rate 20 H Respiratory Effort Respiratory Pattern Blood Pressure 129/88 H Blood Pressure Mean 102 Pulse Ox 90 83 Oxygen Delivery Method Room Air Room Air Oxygen Flow Rate (L/min) 06/12/23 23:01 06/12/23 23:54 Temperature Temperature Source Pulse Rate Respiratory Rate Respiratory Effort Respiratory Pattern Blood Pressure 129/88 H Blood Pressure Mean Pulse Ox 95 Oxygen Delivery Method Nasal Cannula Oxygen Flow Rate (L/min) 4 Weight Weight: 350 lb 8.56 oz Body Mass Index (BMI) 54.8 Physical Exam Const alert, oriented x3 and no apparent distress General Appearance: cooperative and well developed HEENT normocephalic, head/scalp atraumatic and moist oral mucous membranes Eyes PERRL and EOMs intact bilaterally Neck no lymphadenopathy and supple Lymph Lymphatic: no lymphadenopathy noted Resp Resp Narrative: mildly diminished breath sounds bibasally, no wheezes or crackles. On 3L of oxygen by nasal canula Cardio regular rate, regular rhythm, S1 normal heart sound, S2 normal heart sound and no murmurs GI normal to inspection, nondistended, normoactive bowel sounds, soft to palpation and non-tender Extremity normal capillary refill, no clubbing, cyanosis or edema and no calf tenderness Extremity Narrative: right TMA amputation General Extremity: no tenderness to palpation of joints or extremities Skin General Skin Exam: no breakdown Neuro CN's II-XII intact bilaterally, no focal motor deficits and no sensory deficits noted Motor Exam: strength 5/5 throughout and general weakness Psych thought process normal and cooperative Appearance: appropriate Results Lab / Micro Data 06/12/23 20:30 06/12/23 20:30 Labs: Laboratory Results - last 24 hr 06/12/23 20:30: WBC 8.0, RBC 4.92, Hgb 12.7, Hct 40.0, MCV 81.3, MCH 25.8 L, MCHC 31.8 L, RDW Std Deviation 41.9, RDW Coeff of Spencer 14.4, Plt Count 150, MPV 11.3, Immature Gran % (Auto) 0.300, Neut % (Auto) 68.5, Lymph % (Auto) 20.3, Erie % (Auto) 6.0, Eos % (Auto) 3.9, Baso % (Auto) 1.0, Absolute Neuts (auto) 5.5, Absolute Lymphs (auto) 1.61, Nucleated RBC % 0, Differential Comment SCANNED, PT Cancelled, INR Cancelled, APTT Cancelled, Sodium 136, Potassium 4.0,Chloride 103, Carbon Dioxide 27.0, Anion Gap 6, BUN 9, Creatinine 0.75, Estim Creat Clear Calc 140.88, Est GFR (MDRD) Af Amer 105, Est GFR (MDRD) Non-Af 86, BUN/Creatinine Ratio 12.0, Glucose 272 H, Calcium 9.1, Troponin I High Sens 22, B-Natriuretic Peptide 596.3 H 06/12/23 22:05: PT 12.7, INR 1.0, APTT 27.5 Imagaing Radiology Impression Chest CTA 06/12/23 21:05 IMPRESSION: Negative CTA chest examination, without a demonstrated pulmonary embolism or arterial dissection. Cardiomegaly with mild bilateral pleural effusions and early congestive heart failure. Right adrenal adenoma measuring 2.2 cm. No further follow-up imaging recommended. Left upper no pole simple cyst measuring 2 cm, with no further follow-up imaging recommended. Electronically Signed: Laura Sam MD at 23:00 EST , Assessment & Plan Assessment/Plan (1) CHF (congestive heart failure): (2) Acute dyspnea: PLAN: Plan #Acute on chronic exacerbation of combined HF * admit to PCU * BNP elevated at 529. Initial troponin negative * EKG showed no acute ST changes * CT chest showed no PE but showed cardiomegaly with mild bilateral pleural effusions and early congestive heart failure. * start on IV lasix 40mg bid * monitor intake and output * fluid restriction to 1500cc daily * 2D echo from showed EF of 15% with severe segmental systolic dysfunction and stage 3 diastolic dysfunction * cycle troponins * SL nitroglycerin prn * titrate oxytgen to maintain sats >90% * breathing treatment with bronchodilators * #Hypoxia due to acute on chronic combined heart failure * as above * * #History of CAD * likely an ischemic cardiomyopathy due to echo findings as above * on aspirin and carvedilol as well as plavix and high intensity statin * #Hypertension; on carvedilol and spironolactone. Not on SELENE-I/ARB; unclear why. #Hyperlipidemia: on statin #GERD: on PPI #Anxiety and depression: on lexapro #Type 2 diabetes mellitus * poorly controlled * last A1C in 04/2023 was 11. * on lantus 25 units bid * ISS. Accuchecks ACHS\ * DVT prophylaxis: lovenox Code status: full code * Patient counseled extensively about different types of CODE STATUS including full code, DNR CCA and DNR CCA. Patient elects to be full code. * Total fhfs-[id number] time 16 minutes. Total time spent on evaluation and management of patient, reviewing chart and specialist notes, discussing plan with patient, discussion with nursing and ancillary staff as well as documentation: 76 mins Charges/Coding Visit Charges Inpatient E&M: 34657 Init Hosp L3 Procedures Hospitalists Procedures: 57300 Advncd Care Plan 30 Min 06/13/23 1902 <Electronically signed by Talisha Boykin MD> Cosigner Signature (if applicable): CC: Dr. Talisha Boykin MD; [facility]~ Signed [facility] Work Phone: 1([phone]) 191-971401-10-2024 Progress note Author Jeremy Alexander [facility] June 13, 2023 2:49pm Note Date/Time June 13, 2023 2 :26pm [facility] Medical Records Department [address] [place] [address] Progress Note - Hospitalist 06/13/23 1312 MR#: [id number] Acct: [id number] Name: TRENTON JACKSON Rep #:[id number] : 1970 52 From: Jeremy Ahuja PCP: [facility] atus:ADM IN Location: PCU [facility]-2 Objective Data Objective Data Vital Signs: Vital Signs Temp Pulse Resp BP Pulse Ox O2 Del Method O2 Flow Rate 97.8 F 96 16 124/77 H 97 Nasal Cannula 2 06/13/23 08:00 06/13/23 08:00 06/13/23 08:00 06/13/23 08:00 06/13/23 08:00 06/13/23 08:00 06/13/23 08:00 Oxygen Flow Rate (L/min) 2 Oxygen Delivery Method Nasal Cannula Weight: 175 lb 1.6 oz Body Mass Index (BMI) 27.4 Intake & Output: Intake and Output for Last 24 Hours 06/11/23 06/12/23 06/13/23 23:59 23:59 23:59 Intake Total 500 / 500 Output Total 900 / 900 Balance -400 / -400 Lab / Micro Data 06/13/23 05:39 06/13/23 05:39 Labs: Laboratory Results - last 24 hr 06/12/23 20:30: WBC 8.0, RBC 4.92, Hgb 12.7, Hct 40.0, MCV 81.3, MCH 25.8 L, MCHC 31.8 L, RDW Std Deviation 41.9, RDW Coeff of Spencer 14.4, Plt Count 150, MPV 11.3, Immature Gran % (Auto) 0.300, Neut % (Auto) 68.5, Lymph % (Auto) 20.3, Erie % (Auto) 6.0, Eos % (Auto) 3.9, Baso % (Auto) 1.0, Absolute Neuts (auto) 5.5, Absolute Lymphs (auto) 1.61, Nucleated RBC % 0, Differential Comment SCANNED, PT Cancelled, INR Cancelled, APTT Cancelled, Sodium 136, Potassium 4.0,Chloride 103, Carbon Dioxide 27.0, Anion Gap 6, BUN 9, Creatinine 0.75, Estim Creat Clear Calc 140.88, Est GFR (MDRD) Af Amer 105, Est GFR (MDRD) Non-Af 86, BUN/Creatinine Ratio 12.0, Glucose 272 H, Calcium 9.1, Troponin I High Sens 22, B-Natriuretic Peptide 596.3 H 06/12/23 22:05: PT 12.7, INR 1.0, APTT 27.5 06/13/23 05:39: WBC 8.5, RBC 4.73, Hgb 12.2, Hct 38.5, MCV 81.4, MCH 25.8 L, MCHC 31.7 L, RDW Std Deviation 42.3, RDW Coeff of Spencer 14.3, Plt Count 170, MPV 9.8, Immature Gran % (Auto) 0.600, Neut % (Auto) 79.1 H, Lymph % (Auto) 11.4 L, Erie % (Auto) 4.9, Eos % (Auto) 3.2, Baso % (Auto) 0.8, Absolute Neuts (auto) 6.8, Absolute Lymphs (auto) 0.97, Nucleated RBC % 0, Sodium 137, Potassium 3.8, Chloride 101, Carbon Dioxide 29.0, Anion Gap 7, BUN 8, Creatinine 0.68, Estim Creat Clear Calc 106.20, Est GFR (MDRD) Af Amer 117, Est GFR (MDRD) Non-Af 97, BUN/Creatinine Ratio 11.7, Glucose 276 H, Calcium 8.4 L, Troponin I High Sens 23 06/13/23 07:32: Troponin I High Sens 17 06/13/23 07:50: POC Glucose 300 H 06/13/23 10:51: Troponin I High Sens 17 Radiography Diagnostic Testing: Radiology Impression Chest CTA 06/12/23 21:05 IMPRESSION: Negative CTA chest examination, without a demonstrated pulmonary embolism or arterial dissection. Cardiomegaly with mild bilateral pleural effusions and early congestive heart failure. Right adrenal adenoma measuring 2.2 cm. No further follow-up imaging recommended. Left upper no pole simple cyst measuring 2 cm, with no further follow-up imaging recommended. Electronically Signed: Laura Sam MD at 23:00 EST , Physical Exam Narrative Seen and examined. Patient has mild bilateral leg swelling. She Hartness of breath is better. Eating her lunch. Physical exam General: Alert, Oriented x3, Cooperative HEENT: Pale conjunctiva atraumatic, PERRLA, EOMI, Normocephalic Oral: Oral mucosa dry. No Gingival or Mucosal Lesions/ Ulcerations Neck: Supple, No JVD, Negative Carotid Bruits Lungs: Air entry diminished in bilateral lung bases. No crepitation/rhonchi Cardiovascular: Regular rate, Regular Rhythm, Normal S1, Normal S2, no murmur. Decreased pulsation of DIANETICIST and dorsalis artery left more than right. Abdomen: Bowel Sounds Present, Soft, Non Tender, Non-Distended : No renal angle tenderness. No suprapubic tenderness. Extremities: Bilateral lower leg/ankle edema, Capillary Refill Less than 3 Seconds Skin: Shiny smooth skin with no hair suggestive of cutaneous signs of PAD Musculoskeletal: No Tenderness to Palpation of Joints or Extremities. Left TMA. Right second toe amputation. Neurological: Cranial nerves II-XII grossly intact, DTR 2+/4. No acute focal neurological deficit. Psych/Mental Status: Normal Affect, Appropriate. Assessment & Plan Assessment/Plan (1) CHF (congestive heart failure): (2) Acute dyspnea: PLAN: Plan Patient admitted with shortness of breath and lower extremity swelling that is started suddenly day before admission. She could not catch her breath. Patientis on Lasix at home. Denies fever. #Acute on chronic exacerbation of combined HF: Patient is still in the ER admitted last night for PCU: Complaining of mild chest pain in the middle but noradiation.Serial troponins are negative.BNP elevated at 529. I * EKG showed no acute ST changes * CT chest showed no PE but showed cardiomegaly with mild bilateral pleural effusions and early congestive heart failure. * on IV lasix 40mg bid. Heart failure core measures including intake and output, fluid restriction less than 1500 mL, daily weight monitoring, kidney and electrolytes monitoring. * 2D echo from showed EF of 15% with severe segmental systolic dysfunction and stage 3 diastolic dysfunction * titrate oxytgen to maintain sats >90% * breathing treatment with bronchodilators #Hypoxia due to acute on chronic combined heart failure * as above #History of CAD and peripheral arterial disease * likely an ischemic cardiomyopathy due to echo findings as above * on aspirin and carvedilol as well as plavix and high intensity statin * Patient had left TMA and right second toe amputation. Patient also had a stent in right leg probably SFA patient is a current smoker. Continue baby aspirin and Plavix. #Hypertension; on carvedilol and spironolactone. Not on SELENE-I/ARB The patient is started on Entresto 24-26 1 tablet twice daily. #Hyperlipidemia: on statin #GERD: on PPI #Anxiety and depression: on lexapro #Type 2 diabetes mellitus * poorly controlled * last A1C in 04/2023 was 11. * on lantus 25 units bid * Continue Accu-Cheks since been on sliding scale insulin.Glucose is 300. * DVT prophylaxis: lovenox Code status: full code * Patient counseled extensively about different types of CODE STATUS including full code, DNR CCA and DNR CCA. Patient elects to be full code. Clinical Impression(s) from Imaging Studies Chest CTA 06/12/23 21:05 IMPRESSION: Negative CTA chest examination, without a demonstrated pulmonary embolism or arterial dissection. Cardiomegaly with mild bilateral pleural effusions and early congestive heart failure. Right adrenal adenoma measuring 2.2 cm. No further follow-up imaging recommended. Left upper no pole simple cyst measuring 2 cm, with no further follow-up imaging recommended. Laboratory Results 06/12/23 20:30: WBC 8.0, RBC 4.92, Hgb 12.7, Hct 40.0, MCV 81.3, MCH 25.8 L, MCHC 31.8 L, RDW Std Deviation 41.9, RDW Coeff of Spencer 14.4, Plt Count 150, MPV 11.3, Immature Gran % (Auto) 0.300, Neut % (Auto) 68.5, Lymph % (Auto) 20.3, Erie % (Auto) 6.0, Eos % (Auto) 3.9, Baso % (Auto) 1.0, Absolute Neuts (auto) 5.5, Absolute Lymphs (auto) 1.61, Nucleated RBC % 0, Differential Comment SCANNED, PT Cancelled, INR Cancelled, APTT Cancelled, Sodium 136, Potassium 4.0,Chloride 103, Carbon Dioxide 27.0, Anion Gap 6, BUN 9, Creatinine 0.75, Estim Creat Clear Calc 140.88, Est GFR (MDRD) Af Amer 105, Est GFR (MDRD) Non-Af 86, BUN/Creatinine Ratio 12.0, Glucose 272 H, Calcium 9.1, Troponin I High Sens 22, B-Natriuretic Peptide 596.3 H 06/12/23 22:05: PT 12.7, INR 1.0, APTT 27.5 06/13/23 05:39: WBC 8.5, RBC 4.73, Hgb 12.2, Hct 38.5, MCV 81.4, MCH 25.8 L, MCHC 31.7 L, RDW Std Deviation 42.3, RDW Coeff of Spencer 14.3, Plt Count 170, MPV 9.8, Immature Gran % (Auto) 0.600, Neut % (Auto) 79.1 H, Lymph % (Auto) 11.4 L, Erie % (Auto) 4.9, Eos % (Auto) 3.2, Baso % (Auto) 0.8, Absolute Neuts (auto) 6.8, Absolute Lymphs (auto) 0.97, Nucleated RBC % 0, Sodium 137, Potassium 3.8, Chloride 101, Carbon Dioxide 29.0, Anion Gap 7, BUN 8, Creatinine 0.68, Estim Creat Clear Calc 106.20, Est GFR (MDRD) Af Amer 117, Est GFR (MDRD) Non-Af 97, BUN/Creatinine Ratio 11.7, Glucose 276 H, Calcium 8.4 L, Troponin I High Sens 23 06/13/23 07:32: Troponin I High Sens 17 06/13/23 07:50: POC Glucose 300 H 06/13/23 10:51: Troponin I High Sens 17 Charges/Coding Visit Charges Inpatient E&M: 18867 Subs Hosp L2 06/13/23 1449 <Electronically signed by Jeremy Alexander MD> Cosigner Signature (if applicable): CC: ~ Signed [facility] Work Phone: 1(252) 258-787901-10-2024 Discharge summary Author Riccardo Hillman [facility] June 13, 2023 12:46am Note Date/Time June 12, 2023 8: 15pm [facility] Medical Records Department [address] [place] [address] Emergency Department Summary 06/12/23 MR#: [id number] Acct: [id number] Name: TRENTON JACKSON Rep #:[id number] : 1970 52 From: Riccardo Gibson [facility] atus:REG ER Location: ED HPI History of Present Illness Chief Complaint: Fever Informant: patient Onset/Context/Timing Onset: Yesterday Context: Sudden Onset Timing: Continuous Quality: I cannot catch my breath Location: Chest Worsened by: Nothing Relieved by: Nothing Narrative Narrative: Patient presents with shortness of breath and lower extremity swelling that has been getting worse since yesterday. Patient states it began rather suddenly. Patient states she feels like she cannot catch her breath. Patient states nothing makes her breathing worse and nothing makes it better. Patient states she has been taking her Lasix as prescribed. Patient admits to some subjective chills but denies any fevers. Patient admits to some nausea and vomiting. Patient admits to a cough but denies any sputum production. [facility] Medical History Acute dyspnea Aftercare following surgery of the circulatory system Alcohol abuse Amputation toe CAD (coronary artery disease), rincon coronary artery CHF (congestive heart failure) Depression Diabetes type 2, uncontrolled DVT (deep venous thrombosis) Essential hypertension GERD (gastroesophageal reflux disease) Hx of fracture of humerus Hyperlipidemia Hypoxemia Ischemic cardiomyopathy Myocardial infarct Osteoporosis Pericardial effusion Psychiatric disorder Pulmonary embolism Rheumatoid arthritis Seizures Sleep apnea Smoker Substance abuse Toe amputee Home Medications cholecalciferol (vitamin D3) 25 mcg (1,000 unit) tablet 1,000 unit PO DAILY vitamin 07/25/22 [History Last Taken 02/01/23] calcium carbonate 500 mg calcium (1,250 mg) tablet 1 tablet PO DAILY supplement 08/09/22 [History Last Taken 02/01/23] aspirin 81 mg capsule 81 mg PO DAILY heart health 08/10/22 [History Last Taken 02/01/23] nicotine 21 mg/24 hr daily transdermal patch 21 mg transdermal DAILY stop smoking #30 ea 09/02/22 [Rx Last Taken 02/01/23] atorvastatin 80 mg tablet 80 mg PO DAILY cholesterol #30 tabs 02/03/23 [Rx Last Taken Unknown] clopidogrel 75 mg tablet 75 mg PO DAILY anti platelet #30 tabs 02/03/23 [Rx Last Taken Unknown] escitalopram oxalate 10 mg tablet (Lexapro) 10 mg PO DAILY mental health #30 tabs 02/03/23 [Rx Last Taken Unknown] insulin glargine 100 unit/mL subcutaneous solution (Lantus U-100 Insulin) 25 unit subcut BID diabetes 02/27/23 [History Last Taken Unknown] dapagliflozin propanediol 10 mg tablet (Farxiga) 10 mg PO DAILY diabetes #90 tabs 03/26/23 [Rx Last Taken Unknown] pantoprazole 40 mg tablet,delayed release 40 mg PO DAILY reflux 04/18/23 [History Last Taken Unknown] simethicone 125 mg capsule 125 mg PO TID-QID PRN abdominal distention 04/18/23 [History Last Taken Unknown] carvedilol 12.5 mg tablet 12.5 mg PO BIDCM #60 tabs 05/07/23 [Rx Last Taken Unknown] furosemide 40 mg tablet 40 mg PO BIDLX #60 tabs 05/07/23 [Rx Last Taken Unknown] sacubitril 24 mg-valsartan 26 mg tablet (Entresto) 1 tab PO BID 30 days #60 tabs107/08/22 [Rx Last Taken Unknown] spironolactone 25 mg tablet 25 mg PO DAILY #30 tabs 05/07/23 [Rx Last Taken Unknown] gabapentin 300 mg capsule 300 mg PO TID #90 caps 05/22/23 [Rx Last Taken Unknown] Allergy/AdvReac Type Severity Reaction Status Date / Time latex Allergy Hives Verified 05/26/23 09:49 Family History Mother Thyroid disorder Diabetes Hypertension Grandmother Diabetes Uncle Diabetes Aunt Diabetes Other Heart disease Surgical History History of appendectomy History of cholecystectomy Social History household members: spouse and children housing: house Smoking Status: Current every day smoker tobacco type: cigarettes alcohol intake: never substance use type: marijuana what type of physical activity do you participate in: none do you feel safe at home: Yes EXAM Physical Exam Const Vital Signs: 06/12/23 18:57 06/12/23 19:59 06/12/23 19:59 Temperature 97.8 F 98.9 F Temperature Source Temporal Temporal Pulse Rate 89 88 Respiratory Rate 16 16 Respiratory Effort Normal Respiratory Pattern Normal Blood Pressure 126/87 H 134/78 H Blood Pressure Mean 100 96 Pulse Ox 93 92 Oxygen Delivery Method Room Air Room Air Oxygen Flow Rate (L/min) 06/12/23 21:46 06/12/23 21:45 06/12/23 22:56 Temperature Temperature Source Pulse Rate 98 Respiratory Rate 20 H Respiratory Effort Respiratory Pattern Blood Pressure 129/88 H Blood Pressure Mean 102 Pulse Ox 90 83 Oxygen Delivery Method Room Air Room Air Oxygen Flow Rate (L/min) 06/12/23 23:01 06/12/23 23:54 Temperature Temperature Source Pulse Rate Respiratory Rate Respiratory Effort Respiratory Pattern Blood Pressure 129/88 H Blood Pressure Mean Pulse Ox 95 Oxygen Delivery Method Nasal Cannula Oxygen Flow Rate (L/min) 4 Positive well nourished and well developed General Appearance ED: well developed and NAD HEENT Reports moist mucous membranes Neck supple and no JVD Resp normal respiratory effort Auscultation: rales bilateral lower Cardio regular rate and regular rhythm GI non-tender and non-distended Palpation: soft Extremity General Extremety ED: Yes edema and tenderness General Extremity: edema Neuro oriented x3, CN's II-XII intact bilaterally and no sensory deficits noted Sensorium / Orientation: alert Motor Exam: strength 5/5 throughout Psych mental status grossly normal Skin no wounds MDM MDM MDM Narrative Medical decision making narrative: Differential diagnosis includes congestive heart failure, pulmonary embolism, pneumonia, pneumothorax, cardiac dysrhythmia, cardiac ischemia, viral bronchitis, and upper respiratory infection. EKG will be obtained to assess forcardiac dysrhythmia and cardiac ischemia. CTA of the chest will be obtained to assess for pulmonary embolism, congestive heart failure, pneumonia, and pneumothorax. CBC will be obtained to assess for leukocytosis and anemia. Basic metabolic profile will be obtained to assess for electrolyte abnormality and renal function. High-sensitivity troponin will be obtained to assess for cardiac ischemia. BNP will be obtained to assess for congestive heart failure. Lab Data Attestation: I reviewed the patient's lab results. Lab results narrative: CBC was reviewed and was within normal limits. Basic metabolic profile was reviewed and was within normal limits. High-sensitivity troponin was reviewed and was normal at 22. PT was INR and PTT were reviewed and were within normal limits. BNP was reviewed and was elevated at 596.3. Labs: Laboratory Results - last 24 hr 06/12/23 06/12/23 20:30 22:05 WBC 8.0 RBC 4.92 Hgb 12.7 Hct 40.0 MCV 81.3 MCH 25.8 L MCHC 31.8 L RDW Std Deviation 41.9 RDW Coeff of Spencer 14.4 Plt Count 150 MPV 11.3 Immature Gran % (Auto) 0.300 Neut % (Auto) 68.5 Lymph % (Auto) 20.3 Erie % (Auto) 6.0 Eos % (Auto) 3.9 Baso % (Auto) 1.0 Absolute Neuts (auto) 5.5 Absolute Lymphs (auto) 1.61 Nucleated RBC % 0 Differential Comment SCANNED PT Cancelled 12.7 INR Cancelled 1.0 APTT Cancelled 27.5 Sodium 136 Potassium 4.0 Chloride 103 Carbon Dioxide 27.0 Anion Gap 6 BUN 9 Creatinine 0.75 Estim Creat Clear Calc 140.88 Est GFR (MDRD) Af Amer 105 Est GFR (MDRD) Non-Af 86 BUN/Creatinine Ratio 12.0 Glucose 272 H Calcium 9.1 Troponin I High Sens 22 B-Natriuretic Peptide 596.3 H Radiography CTA PE Study: No Evidence of PE and No Evidence of Dissection Diagnostic Testing: Clinical Impression(s) from Imaging Studies Chest CTA 06/12/23 21:05 IMPRESSION: Negative CTA chest examination, without a demonstrated pulmonary embolism or arterial dissection. Cardiomegaly with mild bilateral pleural effusions and early congestive heart failure. Right adrenal adenoma measuring 2.2 cm. No further follow-up imaging recommended. Left upper no pole simple cyst measuring 2 cm, with no further follow-up imaging recommended. Electronically Signed: Laura Sam MD at 23:00 EST , CTA of the chest was obtained. There is no pulmonary embolism or aortic dissection. There is cardiomegaly with mild bilateral pleural effusions and early congestive heart failure. This was interpreted by the radiologist and wasalso independently reviewed by myself. EKG Initial EKG: Attestation: I personally reviewed and interpreted this EKG as follows: Interpretation: Sinus Rhythm (97) and Non-Specific ST Changes Comments: EKG was obtained. On my independent interpretation, it shows normal sinus rhythm with a rate of 97. MN interval was normal at 178 ms. QRS interval was normal at 110 ms. QTc interval was normal at 447 ms. There is left axis deviation at - 41. There are nonspecific ST-T wave changes noted. Prior EKG tracings: available for review Prior: Unchanged (05/04/2023) Management Discussion w/another healthcare provider: Hospitalist Treatment and Re-Evaluation :: Patient was given aspirin initially. Patient was given a dose of morphine and Zofran for pain and nausea. Patient's oxygenation dropped to 83% on room air. Patient was started on oxygen. Patient was given Lasix and nitroglycerin ointment. Due to her hypoxia, I feel the patient would benefit from inpatient treatment. Case will be discussed with the hospitalist. She will admit the patient to her service. Patient understood and was agreeable with the plan. All questions were answered. Discharge Plan Dx/Rx/DC Orders Clinical Impression: CHF (congestive heart failure), Bilateral pleural effusion, Hypoxia Disposition Disposition: Acute Care Hospital [facility] What to do if you have Problems For any increased pain, shortness of breath, bleeding, nausea or vomiting, chestpain, or any unexpected problems, contact your Primary Care Provider. Call [facility] ([phone]) or report to the closest Emergency Room. Call 911 if necessary. 06/13/2345 <Electronically signed by Riccardo Hillman DO> Cosigner Signature (if applicable): CC: [facility] ~ Signed [facility] Work Phone: 1(997) 161-168912-04-2023 Discharge summary Author Latricia Aaron [facility] May 07, 2023 12:08pm Note Date/Time May 07, 2023 1 2:02pm [facility] Medical Records Department [address] [place] [address] Discharge Summary 05/07/23 1121 MR#: [id number] Acct: [id number] Name: TRENTON JACKSON Rep #:[id number] : 1970 52 From: Latricia Aaron MD PCP: [facility] St atus:ADM IN [id number] Providers Date of Admission: 05/03/23 Date of Discharge: 05/07/23 Primary Care Physician: [facility] Consultations 05/03/23 21:00 Consult: Cardiology Routine Consulting Provider: Alli Brito Reason for Consult: severe HFrEF w/ EF 15%, here for CHF exacerbation EMERGENT Consult: No MD Notified: Yes Date Notified: 05/04/23 Time Notified: 06:34 Method of Notification: Text Reason For Visit: CHF EXACERBATION Diagnosis Discharge Diagnosis (1) CHF (congestive heart failure): Status: Acute Code(s): I50.9 - Heart failure, unspecified (2) Hyperglycemia due to diabetes mellitus: Status: Acute Code(s): E11.65 - Type 2 diabetes mellitus with hyperglycemia Medications at Discharge Home Medications cholecalciferol (vitamin D3) 25 mcg (1,000 unit) tablet 1,000 unit PO DAILY vitamin 07/25/22 calcium carbonate 500 mg calcium (1,250 mg) tablet 1 tablet PO DAILY supplement 08/09/22 aspirin 81 mg capsule 81 mg PO DAILY heart health 08/10/22 nicotine 21 mg/24 hr daily transdermal patch 21 mg transdermal DAILY stop smoking #30 ea 09/02/22 dulaglutide 3 mg/0.5 mL subcutaneous pen injector (Trulicity) 3 mg subcut QWEEK diabetes 02/02/23 atorvastatin 80 mg tablet 80 mg PO DAILY cholesterol #30 tabs 02/03/23 clopidogrel 75 mg tablet 75 mg PO DAILY anti platelet #30 tabs 02/03/23 escitalopram oxalate 10 mg tablet (Lexapro) 10 mg PO DAILY mental health #30 tabs 02/03/23 insulin glargine 100 unit/mL subcutaneous solution (Lantus U-100 Insulin) 25 unit subcut BID diabetes 02/27/23 dapagliflozin propanediol 10 mg tablet (Farxiga) 10 mg PO DAILY diabetes #90 tabs 03/26/23 pantoprazole 40 mg tablet,delayed release 40 mg PO DAILY reflux 04/18/23 simethicone 125 mg capsule 125 mg PO TID-QID PRN abdominal distention 04/18/23 carvedilol 12.5 mg tablet 12.5 mg PO BIDCM #60 tabs 05/07/23 furosemide 40 mg tablet 40 mg PO BIDLX #60 tabs 05/07/23 sacubitril 24 mg-valsartan 26 mg tablet (Entresto) 1 tab PO BID 30 days #60 tabs107/08/22 spironolactone 25 mg tablet 25 mg PO DAILY #30 tabs 05/07/23 Hospital Course Summary of Care Provided Minutes Spent on Discharge: 35 Hospital Course: Patient is a 52-year-old female who presented to [facility] ED on 05/03/2023 with worsening shortness of breath. 1. Acute on chronic congestive heart failure with reduced ejection fraction ? Echo from 323 demonstrated EF of 15%. Patient admitted to monitored bed managed with diuretic therapy as well as supplemental oxygen. Patient was discharged home on Entresto spironolactone and Farxiga as well as Lasix 2. Poorly controlled diabetes mellitus type 2 ? Patient presented with hyperglycemia adjusted her insulin regimen counseled onthe need to be compliant 3. Physical deconditioning - Requested for PT OT eval and social organization professor to assist with discharge planning 4. Constipation ? Treated per protocol 5. Hypertension - Blood pressure controlled, home medications continued with dose adjustment as needed 6. Dyslipidemia -Patient is on statin therapy, continued at home dose 7. Depression with anxiety ? Patient is on Lexapro 8. Tobacco dependence - Counseled on cessation, offered nicotine patch for tobacco cravings 9. GERD ? On PPI 10. DVT prophylaxis ? SC Lovenox Total clinical time spent by myself addressing the patient's medical issues, reviewing all the data, and collaborating with patient's care team: 35 minutes. Physical Exam Narrative GENERAL: cooperative HEENT: Atraumatic; normocephalic EYES; Anicteric, Normal Conjunctiva NECK; supple, normal thyroid, RESPIRATORY: Diminished to auscultation CARDIOVASCULAR: Regular S1 S2, GI: soft, normoactive bowel sounds, : No Renal angle tenderness; EXTREMITIES: No edema, no clubbing, MUSCULOSKELETAL: no muscle wasting NEURO: Awake; no lateralizing signs. SKIN: No Rash PSYCH; Flat affect Weight / BMI Weight Weight: 76.5 kg Body Mass Index (BMI) 26.4 ABG / Lab / Microbiology Data 05/07/23 05:50 05/07/23 05:50 Laboratory: Laboratory Results - last 24 hr 05/06/23 11:21: POC Glucose 138 H 05/06/23 17:44: POC Glucose 251 H 05/06/23 22:24: POC Glucose 208 H 05/07/23 05:50: WBC 6.3, RBC 5.19, Hgb 13.5, Hct 43.5, MCV 83.8, MCH 26.0 L, MCHC 31.0 L, RDW Std Deviation 42.9, RDW Coeff of Spencer 14.1, Plt Count 202, MPV 10.5, Immature Gran % (Auto) 0.300, Neut % (Auto) 66.3, Lymph % (Auto) 22.0, Erie % (Auto) 7.3, Eos % (Auto) 3.0, Baso % (Auto) 1.1 H, Absolute Neuts (auto) 4.2, Absolute Lymphs (auto) 1.39, Nucleated RBC % 0, Sodium 136, Potassium 4.2, Chloride 102, Carbon Dioxide 26.0, Anion Gap 8, BUN 15, Creatinine 0.73, Estim Creat Clear Calc 88.66, Est GFR (MDRD) Af Amer 108, Est GFR (MDRD) Non-Af 89, BUN/Creatinine Ratio 20.5 H, Glucose 85, Calcium 8.7 05/07/23 06:43: POC Glucose 100 05/07/23 10:22: POC Glucose 191 H Microbiology: Microbiology 05/03/23 14:25 Nasal Secretion SARS-CoV-2 & FLU Antigen (Rapid) - Final D/C Instructions Discharge Diet: 2000 Calorie Control Diet and 8 Cup Fluid Restriction Discharge Activity: Return to Normal Activity Call your doctor if you observe: Fever of 101 or Higher, Shortness of breath, Fainting spells and Chest pain Meaningful Use Info Meaningful Use Diagnoses (Choose all that apply): CHF CHF SELENE/ARB ordered at discharge?: Yes Documented LVEF (%): 15 Discharge Plan Admission Admit Date/Time: 05/03/23 16:38 Attending Provider: Latricia Aaron [facility] Providers: Alli Brito; Lei Justin; Brenda Posadas Discharge Orders/Prescriptions Prescriptions: New carvedilol 12.5 mg Tablet 12.5 mg PO BIDCM Qty: 60 0RF Entresto 24-26 mg Tablet 1 tab PO BID 30 Days Qty: 60 0RF furosemide 40 mg Tablet 40 mg PO BIDLX Qty: 60 0RF spironolactone 25 mg Tablet 25 mg PO DAILY Qty: 30 0RF Continued calcium carbonate 500 mg calcium (1,250 mg) tablet 1 tablet PO DAILY insulin glargine [Lantus U-100 Insulin] 100 unit/mL solution 25 unit subcut BID pantoprazole 40 mg tablet,delayed release (DR/EC) 40 mg PO DAILY simethicone 125 mg capsule 125 mg PO TID-QID PRN (Reason: abdominal distention) cholecalciferol (vitamin D3) 25 mcg (1,000 unit) tablet 1,000 unit PO DAILY Patient Comments: TAKE 1 TABLET DAILY aspirin 81 mg Capsule 81 mg PO DAILY nicotine 21 mg/24 hr Patch 24 Hour 21 mg transdermal DAILY Qty: 30 0RF Trulicity 3 mg/0.5 mL pen injector 3 mg SUBCUT QWEEK Hold Instructions: Ordered Patient Comments: INJECT 3 (THREE) MG SUBCUTANEOUSLY EVERY WEEK Dr. Sousa informed patient to hold this medication d/t side effects. hasnot had it in a couple of weeks clopidogrel 75 mg Tablet 75 mg PO DAILY Qty: 30 0RF Patient Comments: patient stated pretty sure I still take that atorvastatin 80 mg tablet 80 mg PO DAILY Qty: 30 0RF escitalopram oxalate [Lexapro] 10 mg tablet 10 mg PO DAILY Qty: 30 0RF Farxiga 10 mg tablet 10 mg PO DAILY Qty: 90 3RF Patient Comments: patient stated I know I am supposed to be taking this one but I never got a notification from the pharmacy to come pick it up Discontinued carvedilol 25 mg tablet 25 mg PO BIDCM Qty: 180 3RF Patient Comments: patient states she takes 40 mg... I know that one not sure how often she takes it. lisinopril 20 mg Tablet 20 mg PO DAILY Qty: 30 0RF furosemide [Lasix] 40 mg tablet 40 mg PO DAILY Qty: 30 0RF Referrals / Follow Up: [facility] [Primary Care Provider] - 05/07/23 3:30 pm Disposition Disposition (needs filled in before D/C Order can be placed): Home, Self Care Charges/Coding Visit Charges Inpatient E&M: 14251 Disch Hosp >30min 05/07/23 1208 <Electronically signed by Latricia Aaron MD> Cosigner Signature (if applicable): CC: Dr. Latricia Aaron MD; [facility]~ Signed [facility] Work Phone: [phone]) 253-550712-04-2023 Consult note Author Josse Garcia [facility] May 07, 2023 11:50am Note Date/Time May 07, 2023 1 1:50am [facility] Medical Records Department [address] [place] [address] Counseling Note - Pharmacy 05/07/23 1149 MR#: [id number] Acct: [id number] Name: TRENTON JACKSON Rep #:[id number] : 1970 52 From: Josse Garcia [facility] St atus:ADM IN Y Location: [place] [address] Pharmacy [facility] has performed discharge medication reconciliation and counseling for this patient. The patient's discharge medication list was reviewed for discrepancies and discrepancies were resolved. The patient was counseled on the following discharge medications and changes in medications for homegoing were reviewed. The Reason for Use, instructions for use, and potential side effects were reviewed for all new medications. The patient's questions regarding all of their medications were answered. 1. Carvedilol 12.5 mg PO BID with meals (dose decrease) 2. Furosemide 40 mg PO BID (dose increase) 3. Entresto 24-26 mg PO BID 4. Spironolactone 25 mg PO daily The patient was able to verbally demonstrate an understanding of their dischargemedications. Medications at Discharge Home Medications cholecalciferol (vitamin D3) 25 mcg (1,000 unit) tablet 1,000 unit PO DAILY vitamin 07/25/22 calcium carbonate 500 mg calcium (1,250 mg) tablet 1 tablet PO DAILY supplement 08/09/22 aspirin 81 mg capsule 81 mg PO DAILY heart health 08/10/22 nicotine 21 mg/24 hr daily transdermal patch 21 mg transdermal DAILY stop smoking #30 ea 09/02/22 dulaglutide 3 mg/0.5 mL subcutaneous pen injector (Trulicity) 3 mg subcut QWEEK diabetes 02/02/23 atorvastatin 80 mg tablet 80 mg PO DAILY cholesterol #30 tabs 02/03/23 clopidogrel 75 mg tablet 75 mg PO DAILY anti platelet #30 tabs 02/03/23 escitalopram oxalate 10 mg tablet (Lexapro) 10 mg PO DAILY mental health #30 tabs 02/03/23 insulin glargine 100 unit/mL subcutaneous solution (Lantus U-100 Insulin) 25 unit subcut BID diabetes 02/27/23 dapagliflozin propanediol 10 mg tablet (Farxiga) 10 mg PO DAILY diabetes #90 tabs 03/26/23 pantoprazole 40 mg tablet,delayed release 40 mg PO DAILY reflux 04/18/23 simethicone 125 mg capsule 125 mg PO TID-QID PRN abdominal distention 04/18/23 carvedilol 12.5 mg tablet 12.5 mg PO BIDCM #60 tabs 05/07/23 furosemide 40 mg tablet 40 mg PO BIDLX #60 tabs 05/07/23 sacubitril 24 mg-valsartan 26 mg tablet (Entresto) 1 tab PO BID 30 days #60 tabs107/08/22 spironolactone 25 mg tablet 25 mg PO DAILY #30 tabs 05/07/23 05/07/23 1150 <Electronically signed by Josse osborne> Date _ Josse Angel Signature (if applicable): Date CC: ~ Signed [facility] Work Phone: 1(687) 132-935012-03-2023 Progress note Author Brenda Posadas [facility] May 06, 2023 4:01pm Note Date/Time May 06, 2023 8 :07am [facility] Medical Records Department [address] [place] [address] Progress Note - Hospitalist 05/06/23802 MR#: [id number] Acct: [id number] Name: TRENTON JACKSON Rep #:[id number] : 1970 52 From: Brenda Posadas MD PCP: [facility] St atus:ADM IN Location: [place] [id number]- [id number] Reason for Visit Reason for Visit: Diagnoses Type 2 diabetes mellitus with hyperglycemia (05/03/23) Heart failure, unspecified (05/03/23) Personal history of other diseases of the circulatory system (05/03/23) Subjective Subjective Breathing is improving, patient still reports the pain going to her back and is also very distressed but she has not had a bowel movement in several days and isvery uncomfortable, patient tearful Objective Data Objective Data Vital Signs: Vital Signs Temp Pulse Resp BP Pulse Ox O2 Del Method O2 Flow Rate 97.9 F 81 16 110/72 98 Room Air 5 05/06/23 03:33 05/06/23 03:33 05/06/23 03:33 05/06/23 03:33 05/06/23 03:33 05/06/23 03:44 05/05/23 07:53 Oxygen Flow Rate (L/min) 5 Oxygen Delivery Method Room Air Weight: 76.3 kg Body Mass Index (BMI) 26.3 Intake & Output: Intake and Output for Last 24 Hours 05/04/23 05/05/23 05/06/23 23:59 23:59 23:59 Intake Total 2300 / 2300 720 / 720 Output Total 200 / 200 Balance 2100 / 2100 720 / 720 Lab / Micro Data 05/06/23 05:22 05/06/23 05:22 Labs: Laboratory Results - last 24 hr 05/05/23 12:06: POC Glucose 175 H 05/05/23 16:54: POC Glucose 89 05/05/23 21:46: POC Glucose 141 H 05/06/23 05:22: WBC 6.5, RBC 4.73, Hgb 12.6, Hct 38.8, MCV 82.0, MCH 26.6 L, MCHC 32.5, RDW Std Deviation 41.0, RDW Coeff of Spencer 14.0, Plt Count 213, MPV 10.4, Immature Gran % (Auto) 0.500, Neut % (Auto) 62.7, Lymph % (Auto) 24.3, Erie % (Auto) 7.5, Eos % (Auto) 4.1, Baso % (Auto) 0.9, Absolute Neuts (auto) 4.1, Absolute Lymphs (auto) 1.59, Nucleated RBC % 0, Sodium 136, Potassium 3.4 L, Chloride 102, Carbon Dioxide 31.0, Anion Gap 3 L, BUN 14, Creatinine 0.67, Estim Creat Clear Calc 96.60, Est GFR (MDRD) Af Amer 119, Est GFR (MDRD) Non-Af 99, BUN/Creatinine Ratio 21.0 H, Glucose 98, Calcium 8.8 05/06/23 06:31: POC Glucose 96 Micro: Microbiology 05/03/23 14:25 Nasal Secretion SARS-CoV-2 & FLU Antigen (Rapid) - Final Rhythm Strip Rhythm Strip: Sinus Rhythm Rate: 97 Ectopy: None Physical Exam Narrative General: Alert, oriented, no apparent distress HEENT: Atraumatic, normocephalic Eyes: Anicteric, normal conjunctiva, extraocular movements grossly intact Neck: Supple Respiratory: Respiratory effort improving, aeration improving Cardiovascular: Regular rate GI: Soft, no rebound, guarding, rigidity, nondistended Musculoskeletal: Moving all extremities Neuro: No overt focal neurological deficits Skin: No rashes appreciated Psych: Very tearful Assessment & Plan Assessment/Plan (1) CHF (congestive heart failure): (2) Hyperglycemia due to diabetes mellitus: PLAN: Plan Patient is a 52-year-old female who presented to [facility] ED on 05/03/2023 with worsening shortness of breath. 1. Severe combined heart failure with mild CHF exacerbation, history of severe CAD of LAD, history of PAD s/p stenting of right femoral artery in 08/2022, acutehypoxia with history of COPD Follows with cardiology, last office visit on 03/22/2023. Patient had echo in 08/2022 that showed an EF of 15%, severe hypokinesis/akinesis of the majority of her left ventricle. She had known premature CAD dating back to 2014. Has had multiple heart cath done but does not appear that she has had any stents placed. Last left heart cath in 2018 showed long segment of severe diffuse narrowing inproximal and midportion of LAD, normal right and circumflex coronary arteries. Echo in 2019 showed an EF of 30 to 35% with similar areas of hypokinesis in comparison to most recent echo. Patient with mild volume overload on this admission. Chest x-ray showed mild degree of vascular congestion, +2-3 lower extremity pitting edema, BNP 941, patient requiring 3 L nasal cannula to maintain oxygen saturations greater than 88%. Does not wear oxygen at baseline. No wheezing noted on exam. ? Admit under inpatient status to PCU. Cardiology consulted. Will start IV Lasix 40 mg twice daily for now. Repeat echo ordered. Wean supplemental oxygenas able. Continue home aspirin, statin, Plavix. Continue home Coreg, will holdhome lisinopril for now, restart when able. Hold home dapagliflozin. -05/04: BNP on admit 941. Cardiology evaluated, continue IV Lasix, beta-linda, repeat echo ordered and redemonstrates EF of 15% with wall motion abnormalities as well as stage III diastolic dysfunction, patient started on Entresto and spironolactone. BP slightly low overnight and with new medication additions beta-linda was decreased to allow for medical optimization, continueto adjust. Monitor respiratory status, daily weights, I's and O's -05/05: Cardiology evaluated, patient improving, continue present management -05/06: Patient transition to p.o. Lasix, if patient tolerates this and respiratory status stable can likely DC in the a.m. 2. Poorly controlled type 2 diabetes with hyperglycemia BG 323 on admit. Last A1c of 11.5% in 08/2022, A1c of greater than 14% in 08/2021. Home regimen of insulin glargine 25 units twice daily, Trulicity 3 mg weekly, dapagliflozin 10 mg daily. Patient reports compliance with this regimen. A1c of 11.0% on this admission. ? Will start Lantus 20 units twice daily with high-dose sliding scale insulin for now, adjust as needed. -05/04: A1c is 11, there has been query of compliance previously, on 20 of Lantus twice daily patient's a.m. glucose is 134 so we will continue present regimen and adjust as indicated -05/05: Continue to monitor and adjust glucose -05/06: Glucose under tighter control and is necessary for acute hospitalizationso we will decrease slightly to avoid hypoglycemia 3. Debility Patient lives at home with her daughter. States she has generally been able to take care of herself without issue, but she has been feeling progressively weaker over the last several weeks to months. ? PT/OT/case management consulted. -05/04: PT/OT -05/06: Continue to encourage ambulation #Constipation -Patient very anxious and reports feeling uncomfortable she has not had a bowel movement in a couple of days despite senna docusate, agreeable to suppository Chronic medical conditions: ? Hypertension, hyperlipidemia: See medication recommendations as noted above. ? Anxiety/depression: Continue home Lexapro. ? Current smoker: Attempting to quit, using a 21 mg nicotine patch at home and smoking 5 to 10 cigarettes a day per her report. Continue nicotine patch while inpatient. ? GERD: Continue home PPI. ? History of substance abuse: Previous history of opiate dependence for pain. Not currently on opiates at home. Strongly recommend avoiding opiates for pain management while inpatient. DVT prophylaxis: Lovenox CODE STATUS: Full code, verified Total clinical time spent by myself addressing the patient's medical issues, reviewing all the data, and collaborating with patient's care team: 35 minutes. Charges/Coding Visit Charges Inpatient E&M: 78479 Subs Hosp L2 05/06/23 1601 <Electronically signed by Brenda Posadas MD> Cosigner Signature (if applicable): CC: ~ Signed [facility] Work Phone: 1(186) 478-836012-03-2023 Progress note Author Alli Brito [facility] May 06, 2023 10:31am Note Date/Time May 06, 2023 1 0:31am [facility] Medical Records Department [address] [place] [address] Progress Note - Cardiology 05/06/23 1030 MR#: [id number] Acct: [id number] Name: TRENTON JACKSON Rep #:[id number] : 1970 52 From: Alli Brito MD PCP: [facility] atus:ADM [place] Location: [place] [address] Subjective Subjective Patient seen and evaluated. Appears to be sleeping soundly and flat in bed on no oxygen. Objective Data Vital Signs: Vital Signs Temp Pulse Resp BP Pulse Ox O2 Del Method O2 Flow Rate 97.8 F 85 16 96/71 96 Room Air 5 05/06/23 09:16 05/06/23 09:16 05/06/23 09:16 05/06/23 09:16 05/06/23 09:16 05/06/23 09:16 05/05/23 07:53 Oxygen Flow Rate (L/min) 5 Oxygen Delivery Method Room Air Weight: 168 lb 3.403 oz Body Mass Index (BMI) 26.3 Intake & Output: Intake and Output for Last 24 Hours 05/04/23 05/05/23 05/06/23 23:59 23:59 23:59 Intake Total 2300 / 2300 720 / 720 Output Total 200 / 200 Balance 2100 / 2100 720 / 720 Lab / Micro Data 05/06/23 05:22 05/06/23 05:22 Labs: Laboratory Results - last 24 hr 05/05/23 12:06: POC Glucose 175 H 05/05/23 16:54: POC Glucose 89 05/05/23 21:46: POC Glucose 141 H 05/06/23 05:22: WBC 6.5, RBC 4.73, Hgb 12.6, Hct 38.8, MCV 82.0, MCH 26.6 L, MCHC 32.5, RDW Std Deviation 41.0, RDW Coeff of Spencer 14.0, Plt Count 213, MPV 10.4, Immature Gran % (Auto) 0.500, Neut % (Auto) 62.7, Lymph % (Auto) 24.3, Erie % (Auto) 7.5, Eos % (Auto) 4.1, Baso % (Auto) 0.9, Absolute Neuts (auto) 4.1, Absolute Lymphs (auto) 1.59, Nucleated RBC % 0, Sodium 136, Potassium 3.4 L, Chloride 102, Carbon Dioxide 31.0, Anion Gap 3 L, BUN 14, Creatinine 0.67, Estim Creat Clear Calc 96.60, Est GFR (MDRD) Af Amer 119, Est GFR (MDRD) Non-Af 99, BUN/Creatinine Ratio 21.0 H, Glucose 98, Calcium 8.8 05/06/23 06:31: POC Glucose 96 Rhythm Strip Rhythm Strip: Sinus Rhythm Rate: 97 Ectopy: None Cardiology Labs/Tests 05/06/23 05:22: WBC 6.5, RBC 4.73, Hgb 12.6, Hct 38.8, MCV 82.0, MCH 26.6 L, MCHC 32.5, Plt Count 213, MPV 10.4, Immature Gran % (Auto) 0.500, Neut % (Auto) 62.7, Lymph % (Auto) 24.3, Erie % (Auto) 7.5, Eos % (Auto) 4.1, Baso % (Auto) 0.9, Absolute Neuts (auto) 4.1, Nucleated RBC % 0, Sodium 136, Potassium 3.4 L, Chloride 102, Carbon Dioxide 31.0, Anion Gap 3 L, BUN 14, Creatinine 0.67, Est GFR (MDRD) Af Amer 119, Est GFR (MDRD) Non-Af 99, BUN/Creatinine Ratio 21.0 H, Glucose 98, Calcium 8.8 Rhythm: EKG: ECHO: Stress Test: Cardiac Cath: PCI: CT Surgery: Holter monitor: EPS: PPM: CXR: Chest CT Scan: Physical Exam Const alert, oriented x3 and no apparent distress General Appearance: cooperative HEENT hearing grossly normal bilaterally Head and Scalp: atraumatic Eyes EOMs intact bilaterally Neck General: normal visual inspection Chest inspection of chest normal and palpation of chest normal Resp normal respiratory effort Auscultation: clear to auscultation bilaterally Cardio regular rate, regular rhythm, S1 normal heart sound and S2 normal heart sound Jugular Venous Distention: JVD Palpation: palpable S3 GI normal to inspection, nondistended, normoactive bowel sounds Extremity normal capillary refill General Extremity: edema Peripheral Pulses: Yes pulses 2+ throughout and femoral pulses present Skin no rashes or lesions noted Neuro oriented x3 and CN's II-XII intact bilaterally Psych Appearance: grossly normal and appropriate Assessment & Plan Assessment/Plan (1) CHF (congestive heart failure): PLAN: She does have evidence of congestive heart failure which is systolic [place] Heart Association class III. It appears that this is a combination of coronary artery disease and hypertensive cardiomyopathy. This has been longstanding The particular exacerbation is not entirely clear at this time. I would recommend the following: Continue current dose of beta-linda Intravenous diuretics with IV Lasix can now be switched to oral Lasix 40 mg twice a day Continue oral spironolactone Continue Entresto Echocardiogram demonstrated an ejection fraction of 15% which is unchanged from before. Dietary counseling We will review at outpatient. If ejection fraction is still reduced will consider an implantable defibrillator. With her incomplete left bundle branch block will consider whether she would be a candidate for a SHELLF[employer]ED[employer] OPERATOR-D. 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 We will continue to manage the above with medical therapy. He has not had any angina. Thank you for allowing me to participate in the care of your patient. Please don't hesitate to call if any issues arise. 05/06/23 1031 <Electronically signed by Alli Brito MD> Cosigner Signature (if applicable): CC: ~ Signed [facility] Work Phone: 1(747) 349-355012-02-2023 Progress note Author Brenda Posadas [facility] May 05, 2023 3:29pm Note Date/Time May 05, 2023 9 :59am [facility] Medical Records Department [address] [place] [address] Progress Note - Hospitalist 05/05/23 0958 MR#: [id number] Acct: [id number] Name: TRENTON JACKSON Rep #:[id number] : 1970 52 From: Brenda Posadas MD PCP: [facility] atus:ADM [place] Location: [place] [address] Reason for Visit Reason for Visit: Diagnoses Type 2 diabetes mellitus with hyperglycemia (05/03/23) Heart failure, unspecified (05/03/23) Personal history of other diseases of the circulatory system (05/03/23) Subjective Subjective Breathing improving, remains on IV Lasix, nausea improving Objective Data Objective Data Vital Signs: Vital Signs Temp Pulse Resp BP Pulse Ox O2 Del Method O2 Flow Rate 97.8 F 73 16 102/68 96 Nasal Cannula 5 05/05/23 04:10 05/05/23 04:10 05/05/23 04:10 05/05/23 04:10 05/05/23 07:53 05/05/23 07:53 05/05/23 07:53 Oxygen Flow Rate (L/min) 5 Oxygen Delivery Method Nasal Cannula Weight: 76.5 kg Body Mass Index (BMI) 26.4 Intake & Output: Intake and Output for Last 24 Hours 05/03/23 05/04/23 05/05/23 23:59 23:59 23:59 Intake Total 240 / 480 2300 / 2300 240 / 240 Output Total 200 / 200 Balance 240 / 280 2100 / 2100 240 / 240 Lab / Micro Data 05/05/23 04:56 05/05/23 04:56 Labs: Laboratory Results - last 24 hr 05/04/23 12:05: POC Glucose 222 H 05/04/23 16:48: POC Glucose 238 H 05/04/23 22:16: POC Glucose 104 05/05/23 04:56: WBC 6.3, RBC 4.75, Hgb 12.4, Hct 39.4, MCV 82.9, MCH 26.1 L, MCHC 31.5 L, RDW Std Deviation 42.4, RDW Coeff of Spencer 14.0, Plt Count 188, MPV 10.1, Immature Gran % (Auto) 0.200, Neut % (Auto) 61.2, Lymph % (Auto) 23.6, Erie % (Auto) 7.4, Eos % (Auto) 6.5 H, Baso % (Auto) 1.1 H, Absolute Neuts (auto) 3.9, Absolute Lymphs (auto) 1.49, Nucleated RBC % 0, Sodium 139, Potassium 3.6, Chloride 104, Carbon Dioxide 30.0, Anion Gap 5, BUN 13, Creatinine 0.58, Estim Creat Clear Calc 111.59, Est GFR (MDRD) Af Amer 140, Est GFR (MDRD) Non-Af 115, BUN/Creatinine Ratio 22.3 H, Glucose 93, Calcium 8.6 05/05/23 06:48: POC Glucose 83 Micro: Microbiology 05/03/23 14:25 Nasal Secretion SARS-CoV-2 & FLU Antigen (Rapid) - Final Radiography Diagnostic Testing: Radiology Impression Echocardiogram 05/03/23 17:56 Interpretation Summary The left ventricular ejection fraction is 15 %. Severe segmental systolic dysfunction (see wall motion). Stage 3 diastolic dysfunction. Normal LV size. Moderate (2+) eccentric mitral valve insufficiency. Ordering Physician: Lei Justin Referring Physician: [facility] Performed By: Jyoti Pandey, EDMOND, RVT Rhythm Strip Rhythm Strip: Sinus Rhythm Rate: 97 Ectopy: None Physical Exam Narrative General: Alert, oriented, no apparent distress HEENT: Atraumatic, normocephalic Eyes: Anicteric, normal conjunctiva, extraocular movements grossly intact Neck: Supple Respiratory: Respiratory effort improving, aeration improving Cardiovascular: Regular rate GI: Soft, nontender, nondistended Musculoskeletal: Moving all extremities Neuro: No overt focal neurological deficits Skin: No rashes appreciated Psych: Cooperative Assessment & Plan Assessment/Plan (1) CHF (congestive heart failure): (2) Hyperglycemia due to diabetes mellitus: PLAN: Plan Patient is a 52-year-old female who presented to [facility] ED on 05/03/2023 with worsening shortness of breath. 1. Severe combined heart failure with mild CHF exacerbation, history of severe CAD of LAD, history of PAD s/p stenting of right femoral artery in 08/2022, acutehypoxia with history of COPD Follows with cardiology, last office visit on 03/22/2023. Patient had echo in 08/2022 that showed an EF of 15%, severe hypokinesis/akinesis of the majority of her left ventricle. She had known premature CAD dating back to 2013. Has had multiple heart cath done but does not appear that she has had any stents placed. Last left heart cath in 2018 showed long segment of severe diffuse narrowing inproximal and midportion of LAD, normal right and circumflex coronary arteries. Echo in 2019 showed an EF of 30 to 35% with similar areas of hypokinesis in comparison to most recent echo. Patient with mild volume overload on this admission. Chest x-ray showed mild degree of vascular congestion, +2-3 lower extremity pitting edema, BNP 941, patient requiring 3 L nasal cannula to maintain oxygen saturations greater than 88%. Does not wear oxygen at baseline. No wheezing noted on exam. ? Admit under inpatient status to PCU. Cardiology consulted. Will start IV Lasix 40 mg twice daily for now. Repeat echo ordered. Wean supplemental oxygenas able. Continue home aspirin, statin, Plavix. Continue home Coreg, will holdhome lisinopril for now, restart when able. Hold home dapagliflozin. -05/04: BNP on admit 941. Cardiology evaluated, continue IV Lasix, beta-linda, repeat echo ordered and redemonstrates EF of 15% with wall motion abnormalities as well as stage III diastolic dysfunction, patient started on Entresto and spironolactone. BP slightly low overnight and with new medication additions beta-linda was decreased to allow for medical optimization, continueto adjust. Monitor respiratory status, daily weights, I's and O's -05/05: Cardiology evaluated, patient improving, continue present management 2. Poorly controlled type 2 diabetes with hyperglycemia BG 323 on admit. Last A1c of 11.5% in 08/2022, A1c of greater than 14% in 08/2021. Home regimen of insulin glargine 25 units twice daily, Trulicity 3 mg weekly, dapagliflozin 10 mg daily. Patient reports compliance with this regimen. A1c of 11.0% on this admission. ? Will start Lantus 20 units twice daily with high-dose sliding scale insulin for now, adjust as needed. -05/04: A1c is 11, there has been query of compliance previously, on 20 of Lantus twice daily patient's a.m. glucose is 134 so we will continue present regimen and adjust as indicated -05/05: Continue to monitor and adjust glucose 3. Debility Patient lives at home with her daughter. States she has generally been able to take care of herself without issue, but she has been feeling progressively weaker over the last several weeks to months. ? PT/OT/case management consulted. -05/04: PT/OT Chronic medical conditions: ? Hypertension, hyperlipidemia: See medication recommendations as noted above. ? Anxiety/depression: Continue home Lexapro. ? Current smoker: Attempting to quit, using a 21 mg nicotine patch at home and smoking 5 to 10 cigarettes a day per her report. Continue nicotine patch while inpatient. ? GERD: Continue home PPI. ? History of substance abuse: Previous history of opiate dependence for pain. Not currently on opiates at home. Strongly recommend avoiding opiates for pain management while inpatient. DVT prophylaxis: Lovenox CODE STATUS: Full code, verified Total clinical time spent by myself addressing the patient's medical issues, reviewing all the data, and collaborating with patient's care team: 35 minutes. Charges/Coding Visit Charges Inpatient E&M: 76273 Subs Hosp L2 05/05/23 1123 <Electronically signed by Brenda Posadas MD> Cosigner Signature (if applicable): CC: ~ Signed [facility] Work Phone: 1(277) 406-204512-02-2023 Progress note Author Alli Brito [facility] May 05, 2023 11:03am Note Date/Time May 05, 2023 1 1:03am [facility] Medical Records Department [address] [place] [address] Progress Note - Cardiology 05/05/23 1102 MR#: [id number] Acct: [id number] Name: TRENTON JACKSON Rep #:[id number] : 1970 52 From: Alli Brito MD PCP: [facility] atus:ADM IN Location: [place] [address] Subjective Subjective Patient seen and evaluated. Appears to be doing better today. Objective Data Vital Signs: Vital Signs Temp Pulse Resp BP Pulse Ox O2 Del Method O2 Flow Rate 97.8 F 73 16 102/68 96 Nasal Cannula 5 05/05/23 04:10 05/05/23 04:10 05/05/23 04:10 05/05/23 04:10 05/05/23 07:53 05/05/23 07:53 05/05/23 07:53 Oxygen Flow Rate (L/min) 5 Oxygen Delivery Method Nasal Cannula Weight: 168 lb 10.458 oz Body Mass Index (BMI) 26.4 Intake & Output: Intake and Output for Last 24 Hours 05/03/23 05/04/23 05/05/23 23:59 23:59 23:59 Intake Total 240 / 480 2300 / 2300 240 / 240 Output Total 200 / 200 Balance 240 / 280 2100 / 2100 240 / 240 Lab / Micro Data 05/05/23 04:56 05/05/23 04:56 Labs: Laboratory Results - last 24 hr 05/04/23 12:05: POC Glucose 222 H 05/04/23 16:48: POC Glucose 238 H 05/04/23 22:16: POC Glucose 104 05/05/23 04:56: WBC 6.3, RBC 4.75, Hgb 12.4, Hct 39.4, MCV 82.9, MCH 26.1 L, MCHC 31.5 L, RDW Std Deviation 42.4, RDW Coeff of Spencer 14.0, Plt Count 188, MPV 10.1, Immature Gran % (Auto) 0.200, Neut % (Auto) 61.2, Lymph % (Auto) 23.6, Erie % (Auto) 7.4, Eos % (Auto) 6.5 H, Baso % (Auto) 1.1 H, Absolute Neuts (auto) 3.9, Absolute Lymphs (auto) 1.49, Nucleated RBC % 0, Sodium 139, Potassium 3.6, Chloride 104, Carbon Dioxide 30.0, Anion Gap 5, BUN 13, Creatinine 0.58, Estim Creat Clear Calc 111.59, Est GFR (MDRD) Af Amer 140, Est GFR (MDRD) Non-Af 115, BUN/Creatinine Ratio 22.3 H, Glucose 93, Calcium 8.6 05/05/23 06:48: POC Glucose 83 Rhythm Strip Rhythm Strip: Sinus Rhythm Rate: 97 Ectopy: None Cardiology Labs/Tests 05/05/23 04:56: WBC 6.3, RBC 4.75, Hgb 12.4, Hct 39.4, MCV 82.9, MCH 26.1 L, MCHC 31.5 L, Plt Count 188, MPV 10.1, Immature Gran % (Auto) 0.200, Neut % (Auto) 61.2, Lymph % (Auto) 23.6, Erie % (Auto) 7.4, Eos % (Auto) 6.5 H, Baso % (Auto) 1.1 H, Absolute Neuts (auto) 3.9, Nucleated RBC % 0, Sodium 139, Potassium 3.6, Chloride 104, Carbon Dioxide 30.0, Anion Gap 5, BUN 13, Creatinine 0.58, Est GFR (MDRD) Af Amer 140, Est GFR (MDRD) Non-Af 115, BUN/Creatinine Ratio 22.3 H, Glucose 93, Calcium 8.6 Rhythm: EKG: ECHO: Stress Test: Cardiac Cath: PCI: CT Surgery: Holter monitor: EPS: PPM: CXR: Chest CT Scan: Radiography Diagnostic Testing: Radiology Impression Echocardiogram 05/03/23 17:56 Interpretation Summary The left ventricular ejection fraction is 15 %. Severe segmental systolic dysfunction (see wall motion). Stage 3 diastolic dysfunction. Normal LV size. Moderate (2+) eccentric mitral valve insufficiency. Ordering Physician: Lei Justin Referring Physician: [facility] Performed By: Jyoti Pandey, EDMOND, RVT Physical Exam Const alert, oriented x3 and no apparent distress General Appearance: cooperative HEENT hearing grossly normal bilaterally Head and Scalp: atraumatic Eyes EOMs intact bilaterally Neck General: normal visual inspection Chest inspection of chest normal and palpation of chest normal Resp normal respiratory effort Auscultation: clear to auscultation bilaterally Cardio regular rate, regular rhythm, S1 normal heart sound and S2 normal heart sound Jugular Venous Distention: JVD Palpation: palpable S3 GI normal to inspection, nondistended, normoactive bowel sounds Extremity normal capillary refill General Extremity: edema Peripheral Pulses: Yes pulses 2+ throughout and femoral pulses present Skin no rashes or lesions noted Neuro oriented x3 and CN's II-XII intact bilaterally Psych Appearance: grossly normal and appropriate Assessment & Plan Assessment/Plan (1) CHF (congestive heart failure): PLAN: She does have evidence of congestive heart failure which is systolic [place] Heart Association class III. It appears that this is a combination of coronary artery disease and hypertensive cardiomyopathy. This has been longstanding The particular exacerbation is not entirely clear at this time. I would recommend the following: Continue current dose of beta-linda Intravenous diuretics with IV Lasix Start oral spironolactone Start Entresto Echocardiogram demonstrated an ejection fraction of 15% which is unchanged from before. Dietary counseling We will review at outpatient. If ejection fraction is still reduced will consider an implantable defibrillator. With her incomplete left bundle branch block will consider whether she would be a candidate for a SHELLF[employer]EDGE OPERATOR-D. 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 We will continue to manage the above with medical therapy. He has not had any angina. Thank you for allowing me to participate in the care of your patient. Please don't hesitate to call if any issues arise. 05/05/23 1103 <Electronically signed by Alli Brito MD> Cosigner Signature (if applicable): CC: ~ Signed [facility] Work Phone: 1(377) 905-916812-01-2023 Progress note Author Brenda Posadas [facility] May 04, 2023 5:51pm Note Date/Time May 04, 2023 8 :34am [facility] Medical Records Department [address] [place] [address] Progress Note - Hospitalist 05/04/23825 MR#: [id number] Acct: [id number] Name: TRENTON JACKSON Rep #:[id number] : 1970 52 From: Brenda Posadas MD PCP: [facility] atus:ADM [place] Location: [place] [address] Reason for Visit Reason for Visit: Diagnoses Type 2 diabetes mellitus with hyperglycemia (05/03/23) Heart failure, unspecified (05/03/23) Personal history of other diseases of the circulatory system (05/03/23) Subjective Subjective Feels like breathing is getting better, is feeling somewhat sick to her stomach,also feels constipated Objective Data Objective Data Vital Signs: Vital Signs Temp Pulse Resp BP Pulse Ox O2 Del Method O2 Flow Rate 98.3 F 78 16 95/56 L 97 Nasal Cannula 5 05/04/23 03:00 05/04/23 03:00 05/04/23 03:00 05/04/23 03:00 05/04/23 03:00 05/04/23 03:51 05/04/23 03:51 Oxygen Flow Rate (L/min) 5 Oxygen Delivery Method Nasal Cannula Weight: 77.2 kg Body Mass Index (BMI) 26.6 Intake & Output: Intake and Output for Last 24 Hours 05/02/23 05/03/23 05/04/23 23:59 23:59 23:59 Intake Total 240 / 480 640 / 640 Output Total 200 / 200 Balance 240 / 280 440 / 440 Lab / Micro Data 05/04/23 05:10 05/04/23 05:10 Labs: Laboratory Results - last 24 hr 05/03/23 14:25: WBC 7.9, RBC 4.86, Hgb 12.6, Hct 40.1, MCV 82.5, MCH 25.9 L, MCHC 31.4 L, RDW Std Deviation 41.4, RDW Coeff of Spencer 14.2, Plt Count 210, MPV 9.8, Immature Gran % (Auto) 0.600, Neut % (Auto) 77.6 H, Lymph % (Auto) 13.6 L, Erie % (Auto) 3.9, Eos % (Auto) 3.4, Baso % (Auto) 0.9, Absolute Neuts (auto) 6.1, Absolute Lymphs (auto) 1.07, Nucleated RBC % 0, Sodium 138, Potassium 3.6, Chloride 106, Carbon Dioxide 29.0, Anion Gap 3 L, BUN 10, Creatinine 0.77, EstimCreat Clear Calc 84.06, Est GFR (MDRD) Af Amer 102, Est GFR (MDRD) Non-Af 84, BUN/Creatinine Ratio 13.0, Glucose 323 H, Calcium 8.6, Magnesium 2.3, Troponin IHigh Sens 14, B-Natriuretic Peptide 941.8 H 05/03/23 17:50: Hemoglobin A1c 11.0 H 05/03/23 18:18: POC Glucose 275 H 05/03/23 21:02: POC Glucose 315 H 05/04/23 05:10: WBC 5.7, RBC 4.53, Hgb 11.8 L, Hct 37.5, MCV 82.8, MCH 26.0 L, MCHC 31.5 L, RDW Std Deviation 41.9, RDW Coeff of Spencer 14.2, Plt Count 184, MPV 10.5, Sodium 138, Potassium 3.0 L, Chloride 105, Carbon Dioxide 28.0, Anion Gap 5, BUN 11, Creatinine 0.64, Estim Creat Clear Calc 101.13, Est GFR (MDRD) Af Amer 127, Est GFR (MDRD) Non-Af 105, BUN/Creatinine Ratio 17.3, Glucose 133 H, Calcium 8.2 L, Magnesium 2.1 05/04/23 06:11: POC Glucose 134 H Micro: Microbiology 05/03/23 14:25 Nasal Secretion SARS-CoV-2 & FLU Antigen (Rapid) - Final Radiography Diagnostic Testing: Radiology Impression Chest X-Ray 05/03/23 13:56 IMPRESSION: Mild degree of vascular congestion with atelectasis and/or infiltrate in the right middle lobe. Electronically Signed: Ryan Tejeda MD at 15:00 EST , Rhythm Strip Rhythm Strip: Sinus Rhythm Rate: 97 Ectopy: None Physical Exam Narrative General: Alert, oriented, patient feeling sick to her stomach HEENT: Atraumatic, normocephalic Eyes: Anicteric, normal conjunctiva, extraocular movements grossly intact Neck: Supple Respiratory: Diminished at the bases, normal respiratory effort Cardiovascular: Regular rate GI: Soft, nontender, nondistended Musculoskeletal: Moving all extremities Neuro: No overt focal neurological deficits Skin: No rashes appreciated Psych: Overall cooperative Assessment & Plan Assessment/Plan (1) CHF (congestive heart failure): (2) Hyperglycemia due to diabetes mellitus: PLAN: Plan Patient is a 52-year-old female who presented to [facility] ED on 05/03/2023 with worsening shortness of breath. 1. Severe combined heart failure with mild CHF exacerbation, history of severe CAD of LAD, history of PAD s/p stenting of right femoral artery in 08/2022, acutehypoxia with history of COPD Follows with cardiology, last office visit on 03/22/2023. Patient had echo in 08/2022 that showed an EF of 15%, severe hypokinesis/akinesis of the majority of her left ventricle. She had known premature CAD dating back to 2014. Has had multiple heart cath done but does not appear that she has had any stents placed. Last left heart cath in 2018 showed long segment of severe diffuse narrowing inproximal and midportion of LAD, normal right and circumflex coronary arteries. Echo in 2019 showed an EF of 30 to 35% with similar areas of hypokinesis in comparison to most recent echo. Patient with mild volume overload on this admission. Chest x-ray showed mild degree of vascular congestion, +2-3 lower extremity pitting edema, BNP 941, patient requiring 3 L nasal cannula to maintain oxygen saturations greater than 88%. Does not wear oxygen at baseline. No wheezing noted on exam. ? Admit under inpatient status to PCU. Cardiology consulted. Will start IV Lasix 40 mg twice daily for now. Repeat echo ordered. Wean supplemental oxygenas able. Continue home aspirin, statin, Plavix. Continue home Coreg, will holdhome lisinopril for now, restart when able. Hold home dapagliflozin. -05/04: BNP on admit 941. Cardiology evaluated, continue IV Lasix, beta-linda, repeat echo ordered and redemonstrates EF of 15% with wall motion abnormalities as well as stage III diastolic dysfunction, patient started on Entresto and spironolactone. BP slightly low overnight and with new medication additions beta-linda was decreased to allow for medical optimization, continueto adjust. Monitor respiratory status, daily weights, I's and O's 2. Poorly controlled type 2 diabetes with hyperglycemia BG 323 on admit. Last A1c of 11.5% in 08/2022, A1c of greater than 14% in 08/2021. Home regimen of insulin glargine 25 units twice daily, Trulicity 3 mg weekly, dapagliflozin 10 mg daily. Patient reports compliance with this regimen. A1c of 11.0% on this admission. ? Will start Lantus 20 units twice daily with high-dose sliding scale insulin for now, adjust as needed. -05/04: A1c is 11, there has been query of compliance previously, on 20 of Lantus twice daily patient's a.m. glucose is 134 so we will continue present regimen and adjust as indicated 3. Debility Patient lives at home with her daughter. States she has generally been able to take care of herself without issue, but she has been feeling progressively weaker over the last several weeks to months. ? PT/OT/case management consulted. -05/04: PT/OT Chronic medical conditions: ? Hypertension, hyperlipidemia: See medication recommendations as noted above. ? Anxiety/depression: Continue home Lexapro. ? Current smoker: Attempting to quit, using a 21 mg nicotine patch at home and smoking 5 to 10 cigarettes a day per her report. Continue nicotine patch while inpatient. ? GERD: Continue home PPI. ? History of substance abuse: Previous history of opiate dependence for pain. Not currently on opiates at home. Strongly recommend avoiding opiates for pain management while inpatient. DVT prophylaxis: Lovenox CODE STATUS: Full code, verified Total clinical time spent by myself addressing the patient's medical issues, reviewing all the data, and collaborating with patient's care team: 35 minutes. Charges/Coding Visit Charges Inpatient E&M: 51598 Subs Hosp L2 05/04/23 1751 <Electronically signed by Brenda Posadas MD> Cosigner Signature (if applicable): CC: ~ Signed [facility] Work Phone: 1(982) 226-600312-01-2023 Consult note Author Alli Brito [facility] May 04, 2023 7:21am Note Date/Time May 04, 2023 6 :53am [facility] Medical Records Department [address] [place] [address] Consultation - Cardiology 05/04/23 0651 MR#: [id number] Acct: [id number] Name: TRENTON JACKSON Rep #:[id number] : 1970 52 From: Alli Brito MD PCP: [facility] atus:ADM IN Location: [place] [address] Assessment & Plan Assessment/Plan (1) CHF (congestive heart failure): PLAN: She does have evidence of congestive heart failure which is systolic [place] Heart Association class III. It appears that this is a combination of coronary artery disease and hypertensive cardiomyopathy. This has been longstanding The particular exacerbation is not entirely clear at this time. I would recommend the following: Continue current dose of beta-linda Intravenous diuretics with IV Lasix Start oral spironolactone Start Entresto Repeat echocardiogram Dietary counseling We will review at outpatient. If ejection fraction is still reduced will consider an implantable defibrillator. With her incomplete left bundle branch block will consider whether she would be a candidate for a [employer]-D. 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 We will continue to manage the above with medical therapy. He has not had any angina. Thank you for allowing me to participate in the care of your patient. Please don't hesitate to call if any issues arise. HPI Consult Data Date of Consult: 05/04/23 HPI Narrative HPI Narrative: TRENTON JACKSON, is a 52 F who presents with a history of premature coronary artery disease dating back to at least 2013. She does have a history of hypertension hyperlipidemia coronary artery disease involving the proximal to mid section of the LAD which was apparently severely diseased. She had undergone cardiac catheterization which had demonstrated this and had been evaluated in [place] and had a stress test which demonstrated an akinetic zoneinvolving nearly the entire anterior wall. In addition it was thought that based on his stress test as well as the anatomy it did not appear that she was aparticularly good candidate for PCI of this vessel. Medical therapy was recommended. She was also noted to have reduced left ventricular systolic dysfunction with estimated ejection fraction of between 30 and 40%. She has complained of significant fairly constant chest discomfort has been seen in various emergency room's without significant abnormality noted. In August of this year she was noted to be hospitalized and had an echocardiogram performed which demonstrated an ejection fraction of 15% with severe hypokinesis to akinesis of most of the ventricle. [facility] discomfort coughing as well as shortness of breath. In the emergency room she was noted to be hypoxic a CT of the chest demonstrated no evidence of blood clots. She was admitted with pleurisy and diuresed. She ruled out for myocardial infarction she was subsequently optimized with respect to her medical therapy and discharged for outpatient follow-up. She unfortunately continues to use tobacco products. She presented to the emergency room again last night complaining of shortness of breath and mild pedal edema. She says that she has been nonambulant and has been compliantwith her medications. Its not sure how much she has been watching her diet as she has 2 cans of [employer] sitting next to her. Due to abnormal blood work shewas admitted for further evaluation and management. [facility] Medical History (Updated 05/03/23 @ 17:53 by Paula Clayton) Acute dyspnea Aftercare following surgery of the circulatory system Alcohol abuse Amputation toe CAD (coronary artery disease), rincon coronary artery CHF (congestive heart failure) Depression Diabetes type 2, uncontrolled DVT (deep venous thrombosis) Essential hypertension GERD (gastroesophageal reflux disease) Hx of fracture of humerus Hyperlipidemia Hypoxemia Ischemic cardiomyopathy Myocardial infarct Osteoporosis Pericardial effusion Psychiatric disorder Pulmonary embolism Rheumatoid arthritis Seizures Sleep apnea Smoker Substance abuse Toe amputee Home Medications cholecalciferol (vitamin D3) 25 mcg (1,000 unit) tablet 1,000 unit PO DAILY vitamin 07/25/22 [History Last Taken 02/01/23] calcium carbonate 500 mg calcium (1,250 mg) tablet 1 tablet PO DAILY supplement 08/09/22 [History Last Taken 02/01/23] aspirin 81 mg capsule 81 mg PO DAILY heart health 08/10/22 [History Last Taken 02/01/23] nicotine 21 mg/24 hr daily transdermal patch 21 mg transdermal DAILY stop smoking #30 ea 09/02/22 [Rx Last Taken 02/01/23] dulaglutide 3 mg/0.5 mL subcutaneous pen injector (Trulicity) 3 mg subcut QWEEK diabetes 02/02/23 [History Last Taken 02/01/23] atorvastatin 80 mg tablet 80 mg PO DAILY #30 tabs 02/03/23 [Rx Last Taken Unknown] clopidogrel 75 mg tablet 75 mg PO DAILY #30 tabs 02/03/23 [Rx Last Taken Unknown] escitalopram oxalate 10 mg tablet (Lexapro) 10 mg PO DAILY #30 tabs 02/03/23 [Rx Last Taken Unknown] furosemide 40 mg tablet (Lasix) 40 mg PO DAILY #30 tabs 02/03/23 [Rx Last Taken Unknown] lisinopril 20 mg tablet 20 mg PO DAILY #30 tabs 02/03/23 [Rx Last Taken Unknown] insulin glargine 100 unit/mL subcutaneous solution (Lantus U-100 Insulin) 25 unit subcut BID 02/27/23 [History Last Taken Unknown] carvedilol 25 mg tablet 25 mg PO BIDCM #180 tabs 03/22/23 [Rx Last Taken Unknown] dapagliflozin propanediol 10 mg tablet (Farxiga) 10 mg PO DAILY #90 tabs 03/26/23 [Rx Last Taken Unknown] pantoprazole 40 mg tablet,delayed release 40 mg PO DAILY 04/18/23 [History Last Taken Unknown] simethicone 125 mg capsule 125 mg PO TID-QID PRN abdominal distention 04/18/23 [History Last Taken Unknown] Allergy/AdvReac Type Severity Reaction Status Date / Time latex Allergy Hives Verified 05/03/23 13:37 Family History Mother Thyroid disorder Diabetes Hypertension Grandmother Diabetes Uncle Diabetes Aunt Diabetes Other Heart disease Surgical History History of appendectomy History of cholecystectomy Social History household members: spouse and children housing: house Smoking Status: Current every day smoker tobacco type: cigarettes alcohol intake: never substance use type: marijuana what type of physical activity do you participate in: none do you feel safe at home: Yes ROS Constitutional Constitutional: Denies fever(s) or weight loss Eyes Eyes: Reports systems reviewed and no addt'l complaints, except as documented ENT HEENT: Reports systems reviewed and no addt'l complaints, except as documented Cardiovascular Cardiovascular: Denies chest pain at rest, chest pain with activity, dyspnea at rest, dyspnea on exertion, edema, palpitations or paroxysmal nocturnal dyspnea Respiratory/Chest Respiratory/Chest: Reports dyspnea on exertion, shortness of breath at rest and shortness of breath with exertion; Denies productive cough Gastrointestinal Gastrointestinal: Denies change in bowel habits, nausea, vomiting or weight changes Genitourinary Genitourinary: Denies difficulty urinating Musculoskeletal Musculoskeletal: Denies joint stiffness or muscle weakness Integumentary Integumentary: Denies lesions Neurologic Neurologic: Denies dizziness or syncope Psychiatric Psychiatric: Denies anxiety Endocrine Endocrinology: Denies excessive sweating or fatigue Hematologic/Lymphatic Hematologic/Lymphatic: Denies anemia Allergic/Immunologic Allergic/Immunologic: Denies seasonal rhinorrhea Physical Exam Const alert, oriented x3 and no apparent distress General Appearance: cooperative HEENT hearing grossly normal bilaterally Head and Scalp: atraumatic Eyes EOMs intact bilaterally Neck General: normal visual inspection Chest inspection of chest normal and palpation of chest normal Resp normal respiratory effort Auscultation: clear to auscultation bilaterally Cardio regular rate, regular rhythm, S1 normal heart sound and S2 normal heart sound Jugular Venous Distention: JVD Palpation: palpable S3 GI normal to inspection, nondistended, normoactive bowel sounds Extremity normal capillary refill General Extremity: edema Peripheral Pulses: Yes pulses 2+ throughout and femoral pulses present Skin no rashes or lesions noted Neuro oriented x3 and CN's II-XII intact bilaterally Psych Appearance: grossly normal and appropriate Risk Stratification Risk Stratification Applicable: No Objective Data Vital Signs: Vital Signs Temp Pulse Resp BP Pulse Ox O2 Del Method O2 Flow Rate 98.3 F 78 16 95/56 L 97 Nasal Cannula 5 05/04/23 03:00 05/04/23 03:00 05/04/23 03:00 05/04/23 03:00 05/04/23 03:00 05/04/23 03:51 05/04/23 03:51 Oxygen Flow Rate (L/min) 5 Oxygen Delivery Method Nasal Cannula Weight: 170 lb 3.15 oz Body Mass Index (BMI) 26.6 Intake & Output: Intake and Output for Last 24 Hours 05/02/23 05/03/23 05/04/23 23:59 23:59 23:59 Intake Total 240 / 480 640 / 640 Output Total 200 / 200 Balance 240 / 280 440 / 440 Lab / Micro Data 05/04/23 05:10 05/03/23 14:25 Labs: Laboratory Results - last 24 hr 05/03/23 14:25: WBC 7.9, RBC 4.86, Hgb 12.6, Hct 40.1, MCV 82.5, MCH 25.9 L, MCHC 31.4 L, RDW Std Deviation 41.4, RDW Coeff of Spencer 14.2, Plt Count 210, MPV 9.8, Immature Gran % (Auto) 0.600, Neut % (Auto) 77.6 H, Lymph % (Auto) 13.6 L, Erie % (Auto) 3.9, Eos % (Auto) 3.4, Baso % (Auto) 0.9, Absolute Neuts (auto) 6.1, Absolute Lymphs (auto) 1.07, Nucleated RBC % 0, Sodium 138, Potassium 3.6, Chloride 106, Carbon Dioxide 29.0, Anion Gap 3 L, BUN 10, Creatinine 0.77, EstimCreat Clear Calc 84.06, Est GFR (MDRD) Af Amer 102, Est GFR (MDRD) Non-Af 84, BUN/Creatinine Ratio 13.0, Glucose 323 H, Calcium 8.6, Magnesium 2.3, Troponin IHigh Sens 14, B-Natriuretic Peptide 941.8 H 05/03/23 17:50: Hemoglobin A1c 11.0 H 05/03/23 18:18: POC Glucose 275 H 05/03/23 21:02: POC Glucose 315 H 05/04/23 05:10: WBC 5.7, RBC 4.53, Hgb 11.8 L, Hct 37.5, MCV 82.8, MCH 26.0 L, MCHC 31.5 L, RDW Std Deviation 41.9, RDW Coeff of Spencer 14.2, Plt Count 184, MPV 10.5 05/04/23 06:11: POC Glucose 134 H Micro: Microbiology 05/03/23 14:25 Nasal Secretion SARS-CoV-2 & FLU Antigen (Rapid) - Final Rhythm Strip Rhythm Strip: Sinus Rhythm Rate: 97 Ectopy: None Cardiology Labs/Tests 05/03/23 14:25: WBC 7.9, RBC 4.86, Hgb 12.6, Hct 40.1, MCV 82.5, MCH 25.9 L, MCHC 31.4 L, Plt Count 210, MPV 9.8, Immature Gran % (Auto) 0.600, Neut % (Auto)77.6 H, Lymph % (Auto) 13.6 L, Erie % (Auto) 3.9, Eos % (Auto) 3.4, Baso % (Auto) 0.9, Absolute Neuts (auto) 6.1, Nucleated RBC % 0, Sodium 138, Potassium 3.6,Chloride 106, Carbon Dioxide 29.0, Anion Gap 3 L, BUN 10, Creatinine 0.77, Est GFR (MDRD) Af Amer 102, Est GFR (MDRD) Non-Af 84, BUN/Creatinine Ratio 13.0, Glucose 323 H, Calcium 8.6, Magnesium 2.3, B-Natriuretic Peptide 941.8 H 05/03/23 17:50: Hemoglobin A1c 11.0 H 05/04/23 05:10: WBC 5.7, RBC 4.53, Hgb 11.8 L, Hct 37.5, MCV 82.8, MCH 26.0 L, MCHC 31.5 L, Plt Count 184, MPV 10.5 Rhythm: EKG: ECHO: Stress Test: Cardiac Cath: PCI: CT Surgery: Holter monitor: EPS: PPM: CXR: Chest CT Scan: Radiography Diagnostic Testing: Radiology Impression Chest X-Ray 05/03/23 13:56 IMPRESSION: Mild degree of vascular congestion with atelectasis and/or infiltrate in the right middle lobe. Electronically Signed: Ryan Tejeda MD at 15:00 EST , 05/04/23720 <Electronically signed by Alli Brito MD> Cosigner Signature (if applicable): CC: Dr. Lei Justin DO; Dr. Alli Brito MD; [facility]~ Signed [facility] Work Phone: 1(757) 590-337011-30-2023 History and physical note Author Lei Justin [facility] May 03, 2023 9:30pm Note Date/Time May 03, 2023 4:26pm [facility] Medical Records Department [address] [place] [address] H&P Exam - Hospitalist 05/03/23 1624 MR#: [id number] Acct: [id number] Name: TRENTON JACKSON Rep #:[id number] : 1970 52 From: Lei swanson DO PCP: [facility] St atus:ADM IN Location: [place] [address] HPI - General General Date of Admission: 05/03/23 Date of Service: 05/03/23 Chief Complaint: Worsening shortness of breath HPI Narrative TRENTON JACKSON, is a 52 F who presented to [facility] ED on 05/03/2023 with 3 to 4-day history of worsening shortness of breath. Patient seen at bedside in the ED. Patient appears much older than stated age and appears chronically ill. She is sitting up in bed and conversing normally during our encounter. She was requiring 3 L nasal cannula to maintain oxygen saturations greater than 90%. Was breathing comfortably at rest, no increased work of breathing noted. Patient states that she developed worsening shortness of breath while at home over the last few days. Patient reports taking all of her home medications as prescribed, but on chart review patient does appear to have a significant history of medication nonadherence. Patient follows with cardiology in the office, last office visit was on 03/22/2023. Patient was noted to have an EF of 15% on echo in 08/2022. Cardiology has been following her closely since that time. Patient reports feeling mildly volume overloaded, has mild worsening of edema in her legs. She denies any cough or sputum production. She denies any lightheadedness or dizziness. She reports mild generalized chest pain and upper back pain, unchanged at rest or with exertion. Denies any abdominal pain or discomfort. No other acute concerns this time. [facility] Medical History (Updated 05/03/23 @ 17:53 by Paula Clayton) Acute dyspnea Aftercare following surgery of the circulatory system Alcohol abuse Amputation toe CAD (coronary artery disease), rincon coronary artery CHF (congestive heart failure) Depression Diabetes type 2, uncontrolled DVT (deep venous thrombosis) Essential hypertension GERD (gastroesophageal reflux disease) Hx of fracture of humerus Hyperlipidemia Hypoxemia Ischemic cardiomyopathy Myocardial infarct Osteoporosis Pericardial effusion Psychiatric disorder Pulmonary embolism Rheumatoid arthritis Seizures Sleep apnea Smoker Substance abuse Toe amputee Home Medications cholecalciferol (vitamin D3) 25 mcg (1,000 unit) tablet 1,000 unit PO DAILY vitamin 07/25/22 [History Last Taken 02/01/23] calcium carbonate 500 mg calcium (1,250 mg) tablet 1 tablet PO DAILY supplement 08/09/22 [History Last Taken 02/01/23] aspirin 81 mg capsule 81 mg PO DAILY heart health 08/10/22 [History Last Taken 02/01/23] nicotine 21 mg/24 hr daily transdermal patch 21 mg transdermal DAILY stop smoking #30 ea 09/02/22 [Rx Last Taken 02/01/23] dulaglutide 3 mg/0.5 mL subcutaneous pen injector (Trulicity) 3 mg subcut QWEEK diabetes 02/02/23 [History Last Taken 02/01/23] atorvastatin 80 mg tablet 80 mg PO DAILY #30 tabs 02/03/23 [Rx Last Taken Unknown] clopidogrel 75 mg tablet 75 mg PO DAILY #30 tabs 02/03/23 [Rx Last Taken Unknown] escitalopram oxalate 10 mg tablet (Lexapro) 10 mg PO DAILY #30 tabs 02/03/23 [Rx Last Taken Unknown] furosemide 40 mg tablet (Lasix) 40 mg PO DAILY #30 tabs 02/03/23 [Rx Last Taken Unknown] lisinopril 20 mg tablet 20 mg PO DAILY #30 tabs 02/03/23 [Rx Last Taken Unknown] insulin glargine 100 unit/mL subcutaneous solution (Lantus U-100 Insulin) 25 unit subcut BID 02/27/23 [History Last Taken Unknown] carvedilol 25 mg tablet 25 mg PO BIDCM #180 tabs 03/22/23 [Rx Last Taken Unknown] dapagliflozin propanediol 10 mg tablet (Farxiga) 10 mg PO DAILY #90 tabs 03/26/23 [Rx Last Taken Unknown] pantoprazole 40 mg tablet,delayed release 40 mg PO DAILY 04/18/23 [History Last Taken Unknown] simethicone 125 mg capsule 125 mg PO TID-QID PRN abdominal distention 04/18/23 [History Last Taken Unknown] Allergy/AdvReac Type Severity Reaction Status Date / Time latex Allergy Hives Verified 05/03/23 13:37 Family History Mother Thyroid disorder Diabetes Hypertension Grandmother Diabetes Uncle Diabetes Aunt Diabetes Other Heart disease Surgical History History of appendectomy History of cholecystectomy Social History household members: spouse and children housing: house Smoking Status: Current every day smoker tobacco type: cigarettes alcohol intake: never substance use type: marijuana what type of physical activity do you participate in: none do you feel safe at home: Yes ROS Constitutional Constitutional: Reports fatigue and weakness; Denies change in weight, chills orfever(s) Eyes Eyes: Denies change in vision Cardiovascular Cardiovascular: Reports dyspnea on exertion and edema; Denies chest pain, lightheadedness, palpitations or rapid heart rate Respiratory/Chest Respiratory/Chest: Reports shortness of breath with exertion; Denies cough, shortness of breath at rest or wheezing Gastrointestinal Gastrointestinal: Denies abdominal pain, constipation, diarrhea, nausea or vomiting Genitourinary Genitourinary: Denies dysuria Musculoskeletal Musculoskeletal: Reports back pain; Denies arthralgias Neurologic Neurologic: Denies confusion, dizziness, focal weakness, headache(s), numbness or paresthesias Vital Signs Vital Signs Vital Signs: 05/03/23 13:33 05/03/23 13:37 05/03/23 13:47 Temperature 97.1 F L Temperature Source Oral Pulse Rate 100 98 Respiratory Rate 17 25 H Respiratory Effort Short of Breath Respiratory Pattern Tachypnea Blood Pressure 165/101 H 165/101 H Blood Pressure Mean 122 122 Pulse Ox 90 88 Oxygen Delivery Method Nasal Cannula Room Air Nasal Cannula Oxygen Flow Rate (L/min) 2 2 05/03/23 14:30 05/03/23 15:33 05/03/23 16:23 Temperature Temperature Source Pulse Rate 95 96 Respiratory Rate 18 16 Respiratory Effort Respiratory Pattern Blood Pressure 140/88 H 134/84 H Blood Pressure Mean 105 100 Pulse Ox 90 90 Oxygen Delivery Method Nasal Cannula Nasal Cannula Oxygen Flow Rate (L/min) 2 3 Weight Weight: 77.1 kg Body Mass Index (BMI) 26.6 Physical Exam Const alert and oriented x3 Constitutional Narrative: Middle aged female, appears much older than stated age, chronically ill- appearing, sitting comfortably in bed, conversing normally, mild distress due togeneralized chest and back discomfort. Satting in low 90s on 3 L nasal cannula,no increased work of breathing noted. General Appearance: cooperative HEENT normocephalic, head/scalp atraumatic, hearing grossly normal bilaterally, nasal mucous membranes and turbinates normal and moist oral mucous membranes Eyes PERRL, EOMs intact bilaterally and conjunctivae normal Neck full ROM, no lymphadenopathy and supple Lymph Lymphatic: no lymphadenopathy noted Chest inspection of chest normal Resp Resp Narrative: Decreased breath sounds throughout bilaterally, worst at lung bases. Mild crackles noted at lung bases. No wheezing noted. No increased work of breathing noted. Cardio regular rate, regular rhythm, no murmurs and peripheral pulses 2+ throughout GI normal to inspection, nondistended, normoactive bowel sounds, soft to palpation,non-tender and non-distended Back/Spine normal ROM Extremity normal to inspection and full ROM Extremity Narrative: +2-3 bilateral lower extremity pitting edema. Skin no rashes or lesions noted Neuro moves all extremities and no focal motor deficits Speech: speech normal Psych mental status grossly normal Results Lab / Micro Data 05/03/23 14:25 05/03/23 14:25 Labs: Laboratory Results - last 24 hr 05/03/23 14:25: WBC 7.9, RBC 4.86, Hgb 12.6, Hct 40.1, MCV 82.5, MCH 25.9 L, MCHC 31.4 L, RDW Std Deviation 41.4, RDW Coeff of Spencer 14.2, Plt Count 210, MPV 9.8, Immature Gran % (Auto) 0.600, Neut % (Auto) 77.6 H, Lymph % (Auto) 13.6 L, Erie % (Auto) 3.9, Eos % (Auto) 3.4, Baso % (Auto) 0.9, Absolute Neuts (auto) 6.1, Absolute Lymphs (auto) 1.07, Nucleated RBC % 0, Sodium 138, Potassium 3.6, Chloride 106, Carbon Dioxide 29.0, Anion Gap 3 L, BUN 10, Creatinine 0.77, EstimCreat Clear Calc 84.06, Est GFR (MDRD) Af Amer 102, Est GFR (MDRD) Non-Af 84, BUN/Creatinine Ratio 13.0, Glucose 323 H, Calcium 8.6, Troponin I High Sens 14, B-Natriuretic Peptide 941.8 H Micro: Microbiology 05/03/23 14:25 Nasal Secretion SARS-CoV-2 & FLU Antigen (Rapid) - Final Rhythm Strip Rhythm Strip: Sinus Rhythm Rate: 97 Ectopy: None Imagaing Radiology Impression Chest X-Ray 05/03/23 13:56 IMPRESSION: Mild degree of vascular congestion with atelectasis and/or infiltrate in the right middle lobe. Electronically Signed: Ryan Tejeda MD at 15:00 EST , Assessment & Plan Assessment/Plan (1) CHF (congestive heart failure): (2) Hyperglycemia due to diabetes mellitus: PLAN: Plan Patient is a 52-year-old female who presented to [facility] ED on 05/03/2023 with worsening shortness of breath. 1. Severe HFrEF with mild CHF exacerbation, history of severe CAD of LAD, history of PAD s/p stenting of right femoral artery in 08/2022, acute hypoxia with history of COPD Follows with cardiology, last office visit on 03/22/2023. Patient had echo in 08/2022 that showed an EF of 15%, severe hypokinesis/akinesis of the majority of her left ventricle. She had known premature CAD dating back to 2014. Has had multiple heart cath done but does not appear that she has had any stents placed. Last left heart cath in 2018 showed long segment of severe diffuse narrowing inproximal and midportion of LAD, normal right and circumflex coronary arteries. Echo in 2019 showed an EF of 30 to 35% with similar areas of hypokinesis in comparison to most recent echo. Patient with mild volume overload on this admission. Chest x-ray showed mild degree of vascular congestion, +2-3 lower extremity pitting edema, BNP 941, patient requiring 3 L nasal cannula to maintain oxygen saturations greater than 88%. Does not wear oxygen at baseline. No wheezing noted on exam. ? Admit under inpatient status to PCU. Cardiology consulted. Will start IV Lasix 40 mg twice daily for now. Repeat echo ordered. Wean supplemental oxygenas able. Continue home aspirin, statin, Plavix. Continue home Coreg, will holdhome lisinopril for now, restart when able. Hold home dapagliflozin. 2. Poorly controlled type 2 diabetes with hyperglycemia BG 323 on admit. Last A1c of 11.5% in 08/2022, A1c of greater than 14% in 08/2021. Home regimen of insulin glargine 25 units twice daily, Trulicity 3 mg weekly, dapagliflozin 10 mg daily. Patient reports compliance with this regimen. A1c of 11.0% on this admission. ? Will start Lantus 20 units twice daily with high-dose sliding scale insulin for now, adjust as needed. 3. Debility Patient lives at home with her daughter. States she has generally been able to take care of herself without issue, but she has been feeling progressively weaker over the last several weeks to months. ? PT/OT/case management consulted. Chronic medical conditions: ? Hypertension, hyperlipidemia: See medication recommendations as noted above. ? Anxiety/depression: Continue home Lexapro. ? Current smoker: Attempting to quit, using a 21 mg nicotine patch at home and smoking 5 to 10 cigarettes a day per her report. Continue nicotine patch while inpatient. ? GERD: Continue home PPI. ? History of substance abuse: Previous history of opiate dependence for pain. Not currently on opiates at home. Strongly recommend avoiding opiates for pain management while inpatient. DVT prophylaxis: Lovenox CODE STATUS: Full code, verified Expected disposition: TBD Total clinical time spent by myself addressing the patient's medical issues, reviewing all the data, and collaborating with patient's care team: 55 minutes. Charges/Coding Visit Charges Inpatient E&M: 88034 Init Hosp L2 05/03/232129 <Electronically signed by Lei Justin DO> Cosigner Signature (if applicable): CC: Dr. Lei Justin, ; [facility]~ Signed [facility] Work Phone: 1(951) 895-459311-30-2023 Discharge summary Author Ananda Coyle [facility] May 03, 2023 3:42pm Note Date/Time May 03, 2023 2:03pm [facility] Medical Records Department [address] [place] [address] Emergency Department Summary 05/03/23 MR#: [id number] Acct: [id number] Name: TRENTON JACKSON Rep #:[id number] : 1970 52 From: Ananda Coyle MD PCP: [facility] St atus:REG ER Location: ED HPI History of Present Illness Chief Complaint: Shortness of Breath Informant: patient Onset/Context/Timing Onset: Days Context: gradual Timing: Continuous Quality: Positive for Dyspnea on exertion and Orthopnea Current Severity: Moderate Maximum Severity: Moderate Worsened by: Exertion and Lying flat Relieved by: Rest and Oxygen Associated Symptoms Negative for cough Chest Pain: Positive for None Narrative Narrative: 52-year-old female history of CHF, CAD, cardiomyopathy, diabetes, pleural effusions and substance abuse. States that she has had increasing shortness of breath for least the last 4 days. Typically is not on oxygen. Says since 4 AM this morning she has been increasingly more short of breath. Shortness of breath is worse with exertion or supine. She has increasing swelling in her lower extremities. She denies any URI symptoms. No significant cough. No fever. No hemoptysis. PE Risk Factors: Positive for Prior DVT or PE; Negative for Cancer, OCP + Smoking + > 35, Recent immobilization, Recent surgery or Recent travel Prior similar symptoms: Yes Recent Illness/Hospitalization: No PFSH PFSH Medical History Acute dyspnea Aftercare following surgery of the circulatory system Alcohol abuse Amputation toe CAD (coronary artery disease), rincon coronary artery CHF (congestive heart failure) Depression Diabetes type 2, uncontrolled Essential hypertension GERD (gastroesophageal reflux disease) Hx of fracture of humerus Hyperlipidemia Hypoxemia Ischemic cardiomyopathy Myocardial infarct Osteoporosis Pericardial effusion Psychiatric disorder Pulmonary embolism Substance abuse Toe amputee Home Medications cholecalciferol (vitamin D3) 25 mcg (1,000 unit) tablet 1,000 unit PO DAILY vitamin 07/25/22 [History Last Taken 02/01/23] calcium carbonate 500 mg calcium (1,250 mg) tablet 1 tablet PO DAILY supplement 08/09/22 [History Last Taken 02/01/23] aspirin 81 mg capsule 81 mg PO DAILY heart health 08/10/22 [History Last Taken 02/01/23] nicotine 21 mg/24 hr daily transdermal patch 21 mg transdermal DAILY stop smoking #30 ea 09/02/22 [Rx Last Taken 02/01/23] dulaglutide 3 mg/0.5 mL subcutaneous pen injector (Trulicity) 3 mg subcut QWEEK diabetes 02/02/23 [History Last Taken 02/01/23] atorvastatin 80 mg tablet 80 mg PO DAILY #30 tabs 02/03/23 [Rx Last Taken Unknown] clopidogrel 75 mg tablet 75 mg PO DAILY #30 tabs 02/03/23 [Rx Last Taken Unknown] escitalopram oxalate 10 mg tablet (Lexapro) 10 mg PO DAILY #30 tabs 02/03/23 [Rx Last Taken Unknown] furosemide 40 mg tablet (Lasix) 40 mg PO DAILY #30 tabs 02/03/23 [Rx Last Taken Unknown] lisinopril 20 mg tablet 20 mg PO DAILY #30 tabs 02/03/23 [Rx Last Taken Unknown] insulin glargine 100 unit/mL subcutaneous solution (Lantus U-100 Insulin) 25 unit subcut BID 02/27/23 [History Last Taken Unknown] escitalopram oxalate 10 mg tablet 10 mg PO DAILY 02/28/23 [History Last Taken Unknown] carvedilol 25 mg tablet 25 mg PO BIDCM #180 tabs 03/22/23 [Rx Last Taken Unknown] dapagliflozin propanediol 10 mg tablet (Farxiga) 10 mg PO DAILY #90 tabs 03/26/23 [Rx Last Taken Unknown] pantoprazole 40 mg tablet,delayed release 40 mg PO DAILY 04/18/23 [History Last Taken Unknown] simethicone 125 mg capsule 125 mg PO TID-QID PRN 04/18/23 [History Last Taken Unknown] Allergy/AdvReac Type Severity Reaction Status Date / Time latex Allergy Hives Verified 05/03/23 13:37 Family History Mother Thyroid disorder Diabetes Hypertension Grandmother Diabetes Uncle Diabetes Aunt Diabetes Other Heart disease Surgical History History of appendectomy History of cholecystectomy Social History household members: spouse and children housing: house Smoking Status: Current every day smoker tobacco type: cigarettes alcohol intake: never substance use type: marijuana what type of physical activity do you participate in: none do you feel safe at home: Yes ROS ROS ED ROS Narrative Shortness of breath. Peripheral edema. Review of Systems ROS Unobtainable: Denies due to encephalopathy Constitutional Constitutional ED: Denies chills or fever(s) Eyes Eyes: Denies blurry vision ENT ENT ED: Denies ear pain or rhinorrhea Cardiovascular Cardiovascular: Reports orthopnea; Denies chest pain or palpitations Respiratory/Chest Respiratory/Chest: Reports dyspnea, dyspnea on exertion and orthopnea; Denies cough Gastrointestinal Gastrointestinal: Denies abdominal pain, constipation, diarrhea, melena, nausea or vomiting Genitourinary Genitourinary ED: Denies dysuria or hematuria Musculoskeletal Musculoskeletal: Denies arthralgias Integumentary Denies abscess Neurologic Neurologic: Denies headache(s) Psychiatric Psychiatric: Denies anxiety Endocrine Endocrinology: Denies cold intolerance Hematologic/Lymphatic Hematologic/Lymphatic: Denies easy bleeding or easy bruising Allergic/Immunologic Allergic/Immunologic ED: Denies mouth swelling or tongue swelling EXAM Physical Exam Narrative Exam Narrative: 52-year-old female sitting upright in bed with oxygen on. Vital signs are stable when she is off O2 her pulse ox is 88% on room air consistent hypoxia. On oxygen she is 90% or higher. H EENT exam unremarkable. Neck nontender no JVD. No lymphadenopathy. Lungs diminished in the bases. Heart regular rhythm rate about 100. Dismukes review abdomen is soft and nontender. Moving all 4 extremities. 1+ pitting edema both lower extremities equal and symmetrical. Nocords. No calf tenderness. Neurologically she is awake and alert. Answering questions and following commands. Normal motor strength. Const Vital Signs: 05/03/23 13:33 05/03/23 13:37 05/03/23 13:47 Temperature 97.1 F L Temperature Source Oral Pulse Rate 100 98 Respiratory Rate 17 25 H Respiratory Effort Short of Breath Respiratory Pattern Tachypnea Blood Pressure 165/101 H 165/101 H Blood Pressure Mean 122 122 Pulse Ox 90 88 Oxygen Delivery Method Nasal Cannula Room Air Nasal Cannula Oxygen Flow Rate (L/min) 2 2 05/03/23 14:30 Temperature Temperature Source Pulse Rate Respiratory Rate Respiratory Effort Respiratory Pattern Blood Pressure Blood Pressure Mean Pulse Ox Oxygen Delivery Method Nasal Cannula Oxygen Flow Rate (L/min) 2 Positive well developed; Negative for obese, cachectic, contractures or unkempt General Appearance ED: well developed and NAD; Negative for unkempt, cachectic, contractures or pallor Nutritional Appearance: Negative for cachectic or obese HEENT Reports moist mucous membranes atraumatic; Negative for trauma or tenderness Eyes PERRL and EOMs intact bilaterally General Eye ED: Negative for pale conjunctiva or scleral icterus Neck no lymphadenopathy, supple, no meningeal signs and no JVD General: Negative for tenderness Lymph Lymphatic: Negative for other Resp normal respiratory effort and clear to auscultation bilaterally Effort and Inspection: Negative for pain with movement Auscultation: Negative for rales, rhonchi or wheezes Cardio regular rate, regular rhythm, S1 normal heart sound, S2 normal heart sound and no murmurs Rate: Negative for bradycardia or tachycardic Rhythm: Negative for abnormal rhythm GI non-tender, non-distended and no masses Inspection: Negative for other Auscultation: normoactive bowel sounds Palpation: soft; Negative for tender or guarding Back/Spine no CVA tenderness and normal to inspection General Back: Negative for CVA tenderness or tenderness Extremity Negative for normal to inspection Extremity Narrative: Bilateral lower extremity 1+ pitting edema. General Extremety ED: Yes edema; Negative for tenderness General Extremity: edema Neuro oriented x3 and CN's II-XII intact bilaterally Sensorium / Orientation: alert, oriented to person, oriented to place and oriented to time; Negative for orientation impaired, confused or lethargic Speech: speech normal Motor Exam: strength 5/5 throughout Psych mental status grossly normal Appearance: Negative for unkempt Attitude: No agitated Mood & Affect: Negative for depressed, anxious or tearful Thought Process: normal thought process Skin no wounds General Skin Exam: Negative for jaundice or pallor Lesions: no lesions Rashes: no rashes Trauma: Negative for abrasion or laceration MDM MDM MDM Narrative Medical decision making narrative: 52-year-old female significant prior cardiac history with shortness of breath. By exam she has peripheral edema, historically she has orthopnea and exertional dyspnea think is secondary to CHF or pleural effusions. Differential would alsoinclude MA, anemia etc. Cardiac workup is underway. Repeat exam at 3:40 PM unchanged. Patient remains on oxygen. She will be givenIV Lasix to help diurese her. Morphine for back pain. I have the hospitalist on page for admission. History & Record Review Discussion w/independent historian: Patient Additional record(s) reviewed:: Prior inpatient record, Prior outpatient record,Prior ED visit and Prior labs Lab Data Attestation: I reviewed the patient's lab results. Lab results narrative: Patient is a white count of 7. H&H of 12 and 40. Platelets 210. Electolytes show a gap of 3. Normal BUN of 10 and creatinine 0.7. Glucose is elevated at 323. She is a known diabetic. Troponin normal at 10. BNP is elevated at 941.. Chest x-ray chronic changes of mild cephalization. Labs: Laboratory Results - last 24 hr 05/03/23 14:25 WBC 7.9 RBC 4.86 Hgb 12.6 Hct 40.1 MCV 82.5 MCH 25.9 L MCHC 31.4 L RDW Std Deviation 41.4 RDW Coeff of Spencer 14.2 Plt Count 210 MPV 9.8 Immature Gran % (Auto) 0.600 Neut % (Auto) 77.6 H Lymph % (Auto) 13.6 L [place] % (Auto) 3.9 Eos % (Auto) 3.4 Baso % (Auto) 0.9 Absolute Neuts (auto) 6.1 Absolute Lymphs (auto) 1.07 Nucleated RBC % 0 Sodium 138 Potassium 3.6 Chloride 106 Carbon Dioxide 29.0 Anion Gap 3 L BUN 10 Creatinine 0.77 Estim Creat Clear Calc 84.06 Est GFR (MDRD) Af Amer 102 Est GFR (MDRD) Non-Af 84 BUN/Creatinine Ratio 13.0 Glucose 323 H Calcium 8.6 Troponin I High Sens 14 B-Natriuretic Peptide 941.8 H Radiography Chest X-Ray - ED: 1 View and Read by ED Physician Diagnostic Testing: Clinical Impression(s) from Imaging Studies Chest X-Ray 05/03/23 13:56 IMPRESSION: Mild degree of vascular congestion with atelectasis and/or infiltrate in the right middle lobe. Electronically Signed: Ryan Tejeda MD at 15:00 EST , Rhythm Strip Rhythm Strip: Sinus Rhythm Rate: 97 Ectopy: None EKG Initial EKG: Attestation: I personally reviewed and interpreted this EKG as follows: Interpretation: Sinus Rhythm and No Acute Injury Pattern Comments: Normal sinus rhythm rate of 97. No acute signs of MA or ischemia. Interventricular conduction delay. Discharge Plan Triage Chief Complaint: Shortness of Breath ED Provider: Ananda Coyle Dx/Rx/DC Orders Clinical Impression: Hyperglycemia due to diabetes mellitus, Acute dyspnea, CHF (congestive heart failure), Hypoxia, History of cardiomyopathy, History of coronary artery disease Prescriptions: No Action calcium carbonate 500 mg calcium (1,250 mg) tablet 1 tablet PO DAILY insulin glargine [Lantus U-100 Insulin] 100 unit/mL solution 25 unit subcut BID escitalopram oxalate 10 mg tablet 10 mg PO DAILY carvedilol 25 mg tablet 25 mg PO BIDCM Qty: 180 3RF pantoprazole 40 mg tablet,delayed release (DR/EC) 40 mg PO DAILY simethicone 125 mg capsule 125 mg PO TID-QID PRN cholecalciferol (vitamin D3) 25 mcg (1,000 unit) tablet 1,000 unit PO DAILY Patient Comments: TAKE 1 TABLET DAILY aspirin 81 mg Capsule 81 mg PO DAILY nicotine 21 mg/24 hr Patch 24 Hour 21 mg transdermal DAILY Qty: 30 0RF Trulicity 3 mg/0.5 mL pen injector 3 mg SUBCUT QWEEK Patient Comments: INJECT 3 (THREE) MG SUBCUTANEOUSLY EVERY WEEK lisinopril 20 mg Tablet 20 mg PO DAILY Qty: 30 0RF clopidogrel 75 mg Tablet 75 mg PO DAILY Qty: 30 0RF furosemide [Lasix] 40 mg tablet 40 mg PO DAILY Qty: 30 0RF atorvastatin 80 mg tablet 80 mg PO DAILY Qty: 30 0RF escitalopram oxalate [Lexapro] 10 mg tablet 10 mg PO DAILY Qty: 30 0RF Farxiga 10 mg tablet 10 mg PO DAILY Qty: 90 3RF Primary Care Provider: [facility] Nathaly Finney Referrals: [facility] Nathaly Finney [Primary Care Provider] - Disposition Disposition: Acute Care Hospital [facility] What to do if you have Problems For any increased pain, shortness of breath, bleeding, nausea or vomiting, chestpain, or any unexpected problems, contact your Primary Care Provider. Call [facility] ([phone]) or report to the closest Emergency Room. Call 911 if necessary. 05/03/23 1542 <Electronically signed by Ananda Coyle MD> Cosigner Signature (if applicable): CC: [facility] ~ Signed [facility] Work Phone: 1(610) 283-197311-30-2023 Discharge summary Author Ananda Coyle [facility] May 03, 2023 3:42pm Note Date/Time May 03, 2023 2:03pm [facility] Medical Records Department [address] [place] [address] Emergency Department Summary 05/03/23 MR#: [id number] Acct: [id number] Name: TRENTON JACKSON Rep #:[id number] : 1970 52 From: Ananda Coyle MD PCP: [facility] St atus:REG ER Location: ED HPI History of Present Illness Chief Complaint: Shortness of Breath Informant: patient Onset/Context/Timing Onset: Days Context: gradual Timing: Continuous Quality: Positive for Dyspnea on exertion and Orthopnea Current Severity: Moderate Maximum Severity: Moderate Worsened by: Exertion and Lying flat Relieved by: Rest and Oxygen Associated Symptoms Negative for cough Chest Pain: Positive for None Narrative Narrative: 52-year-old female history of CHF, CAD, cardiomyopathy, diabetes, pleural effusions and substance abuse. States that she has had increasing shortness of breath for least the last 4 days. Typically is not on oxygen. Says since 4 AM this morning she has been increasingly more short of breath. Shortness of breath is worse with exertion or supine. She has increasing swelling in her lower extremities. She denies any URI symptoms. No significant cough. No fever. No hemoptysis. PE Risk Factors: Positive for Prior DVT or PE; Negative for Cancer, OCP + Smoking + > 35, Recent immobilization, Recent surgery or Recent travel Prior similar symptoms: Yes Recent Illness/Hospitalization: No PFSH PFSH Medical History Acute dyspnea Aftercare following surgery of the circulatory system Alcohol abuse Amputation toe CAD (coronary artery disease), rincon coronary artery CHF (congestive heart failure) Depression Diabetes type 2, uncontrolled Essential hypertension GERD (gastroesophageal reflux disease) Hx of fracture of humerus Hyperlipidemia Hypoxemia Ischemic cardiomyopathy Myocardial infarct Osteoporosis Pericardial effusion Psychiatric disorder Pulmonary embolism Substance abuse Toe amputee Home Medications cholecalciferol (vitamin D3) 25 mcg (1,000 unit) tablet 1,000 unit PO DAILY vitamin 07/25/22 [History Last Taken 02/01/23] calcium carbonate 500 mg calcium (1,250 mg) tablet 1 tablet PO DAILY supplement 08/09/22 [History Last Taken 02/01/23] aspirin 81 mg capsule 81 mg PO DAILY heart health 08/10/22 [History Last Taken 02/01/23] nicotine 21 mg/24 hr daily transdermal patch 21 mg transdermal DAILY stop smoking #30 ea 09/02/22 [Rx Last Taken 02/01/23] dulaglutide 3 mg/0.5 mL subcutaneous pen injector (Trulicity) 3 mg subcut QWEEK diabetes 02/02/23 [History Last Taken 02/01/23] atorvastatin 80 mg tablet 80 mg PO DAILY #30 tabs 02/03/23 [Rx Last Taken Unknown] clopidogrel 75 mg tablet 75 mg PO DAILY #30 tabs 02/03/23 [Rx Last Taken Unknown] escitalopram oxalate 10 mg tablet (Lexapro) 10 mg PO DAILY #30 tabs 02/03/23 [Rx Last Taken Unknown] furosemide 40 mg tablet (Lasix) 40 mg PO DAILY #30 tabs 02/03/23 [Rx Last Taken Unknown] lisinopril 20 mg tablet 20 mg PO DAILY #30 tabs 02/03/23 [Rx Last Taken Unknown] insulin glargine 100 unit/mL subcutaneous solution (Lantus U-100 Insulin) 25 unit subcut BID 02/27/23 [History Last Taken Unknown] escitalopram oxalate 10 mg tablet 10 mg PO DAILY 02/28/23 [History Last Taken Unknown] carvedilol 25 mg tablet 25 mg PO BIDCM #180 tabs 03/22/23 [Rx Last Taken Unknown] dapagliflozin propanediol 10 mg tablet (Farxiga) 10 mg PO DAILY #90 tabs 03/26/23 [Rx Last Taken Unknown] pantoprazole 40 mg tablet,delayed release 40 mg PO DAILY 04/18/23 [History Last Taken Unknown] simethicone 125 mg capsule 125 mg PO TID-QID PRN 04/18/23 [History Last Taken Unknown] Allergy/AdvReac Type Severity Reaction Status Date / Time latex Allergy Hives Verified 05/03/23 13:37 Family History Mother Thyroid disorder Diabetes Hypertension Grandmother Diabetes Uncle Diabetes Aunt Diabetes Other Heart disease Surgical History History of appendectomy History of cholecystectomy Social History household members: spouse and children housing: house Smoking Status: Current every day smoker tobacco type: cigarettes alcohol intake: never substance use type: marijuana what type of physical activity do you participate in: none do you feel safe at home: Yes ROS ROS ED ROS Narrative Shortness of breath. Peripheral edema. Review of Systems ROS Unobtainable: Denies due to encephalopathy Constitutional Constitutional ED: Denies chills or fever(s) Eyes Eyes: Denies blurry vision ENT ENT ED: Denies ear pain or rhinorrhea Cardiovascular Cardiovascular: Reports orthopnea; Denies chest pain or palpitations Respiratory/Chest Respiratory/Chest: Reports dyspnea, dyspnea on exertion and orthopnea; Denies cough Gastrointestinal Gastrointestinal: Denies abdominal pain, constipation, diarrhea, melena, nausea or vomiting Genitourinary Genitourinary ED: Denies dysuria or hematuria Musculoskeletal Musculoskeletal: Denies arthralgias Integumentary Denies abscess Neurologic Neurologic: Denies headache(s) Psychiatric Psychiatric: Denies anxiety Endocrine Endocrinology: Denies cold intolerance Hematologic/Lymphatic Hematologic/Lymphatic: Denies easy bleeding or easy bruising Allergic/Immunologic Allergic/Immunologic ED: Denies mouth swelling or tongue swelling EXAM Physical Exam Narrative Exam Narrative: 52-year-old female sitting upright in bed with oxygen on. Vital signs are stable when she is off O2 her pulse ox is 88% on room air consistent hypoxia. On oxygen she is 90% or higher. H EENT exam unremarkable. Neck nontender no JVD. No lymphadenopathy. Lungs diminished in the bases. Heart regular rhythm rate about 100. Dismukes review abdomen is soft and nontender. Moving all 4 extremities. 1+ pitting edema both lower extremities equal and symmetrical. Nocords. No calf tenderness. Neurologically she is awake and alert. Answering questions and following commands. Normal motor strength. Const Vital Signs: 05/03/23 13:33 05/03/23 13:37 05/03/23 13:47 Temperature 97.1 F L Temperature Source Oral Pulse Rate 100 98 Respiratory Rate 17 25 H Respiratory Effort Short of Breath Respiratory Pattern Tachypnea Blood Pressure 165/101 H 165/101 H Blood Pressure Mean 122 122 Pulse Ox 90 88 Oxygen Delivery Method Nasal Cannula Room Air Nasal Cannula Oxygen Flow Rate (L/min) 2 2 05/03/23 14:30 Temperature Temperature Source Pulse Rate Respiratory Rate Respiratory Effort Respiratory Pattern Blood Pressure Blood Pressure Mean Pulse Ox Oxygen Delivery Method Nasal Cannula Oxygen Flow Rate (L/min) 2 Positive well developed; Negative for obese, cachectic, contractures or unkempt General Appearance ED: well developed and NAD; Negative for unkempt, cachectic, contractures or pallor Nutritional Appearance: Negative for cachectic or obese HEENT Reports moist mucous membranes atraumatic; Negative for trauma or tenderness Eyes PERRL and EOMs intact bilaterally General Eye ED: Negative for pale conjunctiva or scleral icterus Neck no lymphadenopathy, supple, no meningeal signs and no JVD General: Negative for tenderness Lymph Lymphatic: Negative for other Resp normal respiratory effort and clear to auscultation bilaterally Effort and Inspection: Negative for pain with movement Auscultation: Negative for rales, rhonchi or wheezes Cardio regular rate, regular rhythm, S1 normal heart sound, S2 normal heart sound and no murmurs Rate: Negative for bradycardia or tachycardic Rhythm: Negative for abnormal rhythm GI non-tender, non-distended and no masses Inspection: Negative for other Auscultation: normoactive bowel sounds Palpation: soft; Negative for tender or guarding Back/Spine no CVA tenderness and normal to inspection General Back: Negative for CVA tenderness or tenderness Extremity Negative for normal to inspection Extremity Narrative: Bilateral lower extremity 1+ pitting edema. General Extremety ED: Yes edema; Negative for tenderness General Extremity: edema Neuro oriented x3 and CN's II-XII intact bilaterally Sensorium / Orientation: alert, oriented to person, oriented to place and oriented to time; Negative for orientation impaired, confused or lethargic Speech: speech normal Motor Exam: strength 5/5 throughout Psych mental status grossly normal Appearance: Negative for unkempt Attitude: No agitated Mood & Affect: Negative for depressed, anxious or tearful Thought Process: normal thought process Skin no wounds General Skin Exam: Negative for jaundice or pallor Lesions: no lesions Rashes: no rashes Trauma: Negative for abrasion or laceration MDM MDM MDM Narrative Medical decision making narrative: 52-year-old female significant prior cardiac history with shortness of breath. By exam she has peripheral edema, historically she has orthopnea and exertional dyspnea think is secondary to CHF or pleural effusions. Differential would alsoinclude MA, anemia etc. Cardiac workup is underway. Repeat exam at 3:40 PM unchanged. Patient remains on oxygen. She will be givenIV Lasix to help diurese her. Morphine for back pain. I have the hospitalist on page for admission. History & Record Review Discussion w/independent historian: Patient Additional record(s) reviewed:: Prior inpatient record, Prior outpatient record,Prior ED visit and Prior labs Lab Data Attestation: I reviewed the patient's lab results. Lab results narrative: Patient is a white count of 7. H&H of 12 and 40. Platelets 210. Electolytes show a gap of 3. Normal BUN of 10 and creatinine 0.7. Glucose is elevated at 323. She is a known diabetic. Troponin normal at 10. BNP is elevated at 941.. Chest x-ray chronic changes of mild cephalization. Labs: Laboratory Results - last 24 hr 05/03/23 14:25 WBC 7.9 RBC 4.86 Hgb 12.6 Hct 40.1 MCV 82.5 MCH 25.9 L MCHC 31.4 L RDW Std Deviation 41.4 RDW Coeff of Spencer 14.2 Plt Count 210 MPV 9.8 Immature Gran % (Auto) 0.600 Neut % (Auto) 77.6 H Lymph % (Auto) 13.6 L Erie % (Auto) 3.9 Eos % (Auto) 3.4 Baso % (Auto) 0.9 Absolute Neuts (auto) 6.1 Absolute Lymphs (auto) 1.07 Nucleated RBC % 0 Sodium 138 Potassium 3.6 Chloride 106 Carbon Dioxide 29.0 Anion Gap 3 L BUN 10 Creatinine 0.77 Estim Creat Clear Calc 84.06 Est GFR (MDRD) Af Amer 102 Est GFR (MDRD) Non-Af 84 BUN/Creatinine Ratio 13.0 Glucose 323 H Calcium 8.6 Troponin I High Sens 14 B-Natriuretic Peptide 941.8 H Radiography Chest X-Ray - ED: 1 View and Read by ED Physician Diagnostic Testing: Clinical Impression(s) from Imaging Studies Chest X-Ray 05/03/23 13:56 IMPRESSION: Mild degree of vascular congestion with atelectasis and/or infiltrate in the right middle lobe. Electronically Signed: Ryan Tejeda MD at 15:00 EST , Rhythm Strip Rhythm Strip: Sinus Rhythm Rate: 97 Ectopy: None EKG Initial EKG: Attestation: I personally reviewed and interpreted this EKG as follows: Interpretation: Sinus Rhythm and No Acute Injury Pattern Comments: Normal sinus rhythm rate of 97. No acute signs of MA or ischemia. Interventricular conduction delay. Discharge Plan Triage Chief Complaint: Shortness of Breath ED Provider: Ananda Coyle Dx/Rx/DC Orders Clinical Impression: Hyperglycemia due to diabetes mellitus, Acute dyspnea, CHF (congestive heart failure), Hypoxia, History of cardiomyopathy, History of coronary artery disease Prescriptions: No Action calcium carbonate 500 mg calcium (1,250 mg) tablet 1 tablet PO DAILY insulin glargine [Lantus U-100 Insulin] 100 unit/mL solution 25 unit subcut BID escitalopram oxalate 10 mg tablet 10 mg PO DAILY carvedilol 25 mg tablet 25 mg PO BIDCM Qty: 180 3RF pantoprazole 40 mg tablet,delayed release (DR/EC) 40 mg PO DAILY simethicone 125 mg capsule 125 mg PO TID-QID PRN cholecalciferol (vitamin D3) 25 mcg (1,000 unit) tablet 1,000 unit PO DAILY Patient Comments: TAKE 1 TABLET DAILY aspirin 81 mg Capsule 81 mg PO DAILY nicotine 21 mg/24 hr Patch 24 Hour 21 mg transdermal DAILY Qty: 30 0RF Trulicity 3 mg/0.5 mL pen injector 3 mg SUBCUT QWEEK Patient Comments: INJECT 3 (THREE) MG SUBCUTANEOUSLY EVERY WEEK lisinopril 20 mg Tablet 20 mg PO DAILY Qty: 30 0RF clopidogrel 75 mg Tablet 75 mg PO DAILY Qty: 30 0RF furosemide [Lasix] 40 mg tablet 40 mg PO DAILY Qty: 30 0RF atorvastatin 80 mg tablet 80 mg PO DAILY Qty: 30 0RF escitalopram oxalate [Lexapro] 10 mg tablet 10 mg PO DAILY Qty: 30 0RF Farxiga 10 mg tablet 10 mg PO DAILY Qty: 90 3RF Primary Care Provider: [facility] Nathaly Finney Referrals: [facility] Chaz,Nathaly Lainez [Primary Care Provider] - Disposition Disposition: Acute Care Hospital [facility] What to do if you have Problems For any increased pain, shortness of breath, bleeding, nausea or vomiting, chestpain, or any unexpected problems, contact your Primary Care Provider. Call [facility] ([phone]) or report to the closest Emergency Room. Call 911 if necessary. 05/03/23 1542 <Electronically signed by Ananda Coyle MD> Cosigner Signature (if applicable): CC: [facility] ~ Signed [facility] Work Phone: 1(502) 839-184509-02-2023 Discharge summary Author Sabina Rosenberg [facility] February 03, 2023 4:02pm Note Date/Time February 03, 2023 3:30pm [facility] Medical Records Department [address] [place] [id number] Instructions for Home/Discharge Instructions 02/03/23 1530 MR#: [id number] Acct: [id number] Name: TRENTON JACKSON Rep #:[id number] : 1970 52 From: Sabina Rosenberg DO [facility] atus:ADM REHAN Discharge Instructions Diet Discharge Diet: 1800 Calorie Control Diet Activity Weight Bearing Status: Full weight bearing Follow Up Care Test Results: Test results from this visit will be discussed in further detail at your follow- up appointment, if applicable. Discharge Plan Admission Admit Date/Time: 02/02/23 16:24 Primary Reason for Your Visit: CHF Attending Provider: Sabina Rosenberg Primary Care Provider: [facility] Nathaly Finney Consulting Providers: Brandon Adames Discharge Orders/Prescriptions Prescriptions: New atorvastatin 80 mg Tablet 80 mg PO DAILY Qty: 30 0RF carvedilol 6.25 mg Tablet 6.25 mg PO BIDCM Qty: 60 0RF lisinopril 20 mg Tablet 20 mg PO DAILY Qty: 30 0RF clopidogrel 75 mg Tablet 75 mg PO DAILY Qty: 30 0RF escitalopram oxalate 10 mg Tablet 10 mg PO DAILY Qty: 30 0RF furosemide [Lasix] 40 mg tablet 40 mg PO DAILY Qty: 30 0RF lisinopril 20 mg tablet 20 mg PO DAILY Qty: 30 0RF atorvastatin 80 mg tablet 80 mg PO DAILY Qty: 30 0RF glimepiride 4 mg tablet 4 mg PO BID Qty: 60 0RF clopidogrel [Plavix] 75 mg tablet 75 mg PO DAILY Qty: 30 0RF omeprazole 40 mg capsule,delayed release(DR/EC) 40 mg PO DAILY Qty: 30 0RF escitalopram oxalate [Lexapro] 10 mg tablet 10 mg PO DAILY Qty: 30 0RF carvedilol 6.25 mg tablet 6.25 mg PO BID Qty: 60 0RF Rx Instructions: must administer with a meal/food Continued calcium carbonate 500 mg calcium (1,250 mg) tablet 1 tablet PO DAILY cholecalciferol (vitamin D3) 25 mcg (1,000 unit) tablet 1,000 unit PO DAILY Patient Comments: TAKE 1 TABLET DAILY aspirin 81 mg Capsule 81 mg PO DAILY nicotine 21 mg/24 hr Patch 24 Hour 21 mg transdermal DAILY Qty: 30 0RF Trulicity 3 mg/0.5 mL pen injector 3 mg SUBCUT QWEEK Patient Comments: INJECT 3 (THREE) MG SUBCUTANEOUSLY EVERY WEEK glimepiride 4 mg tablet 4 mg PO BID Qty: 60 0RF omeprazole 20 mg capsule,delayed release(DR/EC) 20 mg PO DAILY Qty: 30 0RF Patient Comments: TAKE 1 CAPSULE BY MOUTH DAILY Changed furosemide [Lasix] 20 mg tablet 40 mg PO DAILY Qty: 60 0RF Discontinued atorvastatin 80 mg tablet 80 mg PO DAILY Qty: 90 3RF clopidogrel [Plavix] 75 mg tablet 75 mg PO DAILY Qty: 30 2RF escitalopram oxalate 10 mg Tablet 10 mg PO DAILY Patient Comments: HAS NOT REFILLED SINCE 04/25, BUT STATES SHE TAKES DAILY carvedilol 3.125 mg Tablet 3.125 mg PO BID Qty: 60 0RF lisinopril 20 mg Tablet 20 mg PO DAILY Qty: 30 0RF Referrals / Follow Up: [facility],Nathaly Lainez [Primary Care Provider] - Within 2 Weeks Disposition Disposition (needs filled in before D/C Order can be placed): Home, Self Care 02/03/23 1602<Electronically signed by Sabina Rosenberg DO>Sabina Rosenberg DO CC: Dr. Brandon Adames MD; [facility] ~ Signed [facility] Work Phone: [phone]) 171-494709-01-2023 History and physical note Author Brandon Adames [facility] February 02, 2023 5:56pm Note Date/Time February 02, 2023 5:08pm [facility] Medical Records Department [address] [place] [address] H&P Exam - Hospitalist 02/02/23 1627 MR#: [id number] Acct: [id number] Name: TRENTON JACKSON Rep #:[id number] : 1970 52 From: Brandon talavera MD PCP: [facility] atus:ADM REHAN Location: [place] [address] HPI - General General Date of Admission: 02/02/23 HPI Narrative TRENTON JACKSON, is a 52 F who presents with chest pain similar to the chest pain she had previously though slightly more intense. Troponins were unremarkable. CT of the chest was normal. The chest pain started intermittently over the last couple of days with no significant association to activity. She does also have a dry cough and has palpable chest pain as well though she is says that it is slightly different than the chest pain that brought her into the hospital. EKG is unremarkable. She did have an echo back in August with an EF of 15% as well as some diastolic dysfunction. She has been unable to follow-up with a resume writer since that time but states that she has been taking her medications appropriately and watching her diet. She comes in today because she is also been having some shortness of breath, she did drop heroxygen down to 88% and is managing on 2 L nasal cannula. She did receive a doseof Lasix in the ER. [facility] Medical History Acute dyspnea Aftercare following surgery of the circulatory system Alcohol abuse CAD (coronary artery disease), rincon coronary artery CHF (congestive heart failure) Depression Diabetes type 2, uncontrolled Essential hypertension GERD (gastroesophageal reflux disease) Hx of fracture of humerus Hyperlipidemia Hypoxemia Ischemic cardiomyopathy Myocardial infarct Osteoporosis Pericardial effusion Pulmonary embolism Smoker Substance abuse Toe amputee Home Medications cholecalciferol (vitamin D3) 25 mcg (1,000 unit) tablet 1,000 unit PO DAILY 07/25/22 [History Last Taken 02/01/23] atorvastatin 80 mg tablet 80 mg PO DAILY #90 tabs 08/09/22 [Rx Last Taken 02/01/23] calcium carbonate 500 mg calcium (1,250 mg) tablet 1 tablet PO DAILY 08/09/22 [History Last Taken 02/01/23] clopidogrel 75 mg tablet (Plavix) 75 mg PO DAILY #30 tabs 08/09/22 [Rx Last Taken 02/01/23] aspirin 81 mg capsule 81 mg PO DAILY 08/10/22 [History Last Taken 02/01/23] escitalopram oxalate 10 mg tablet 10 mg PO DAILY DEPRESSION 08/30/22 [History Last Taken 02/01/23] carvedilol 3.125 mg tablet 3.125 mg PO BID #60 tabs 09/02/22 [Rx Last Taken 02/01/23] nicotine 21 mg/24 hr daily transdermal patch 21 mg transdermal DAILY #30 ea 09/02/22 [Rx Last Taken 02/01/23] furosemide 20 mg tablet (Lasix) 20 mg PO DAILY #30 tabs 01/03/23 [Rx Last Taken 02/01/23] lisinopril 20 mg tablet 20 mg PO DAILY #30 tabs 01/03/23 [Rx Last Taken 02/01/23] glimepiride 4 mg tablet 4 mg PO BID 01/29/23 [History Last Taken 02/01/23] omeprazole 20 mg capsule,delayed release 20 mg PO DAILY 01/29/23 [History Last Taken 02/01/23] dulaglutide 3 mg/0.5 mL subcutaneous pen injector (Trulicity) 3 mg subcut QWEEK 02/02/23 [History Last Taken 02/01/23] Allergy/AdvReac Type Severity Reaction Status Date / Time latex Allergy Hives Verified 01/29/23 16:21 Family History (Updated 02/02/23 @ 17:[address] Brandon Adames MD) Other Heart disease Surgical History History of cholecystectomy Social History household members: spouse and children housing: house Smoking Status: Current every day smoker tobacco type: cigarettes alcohol intake: never substance use type: marijuana what type of physical activity do you participate in: none do you feel safe at home: Yes ROS Constitutional Constitutional: Denies chills, fatigue, fever(s) or malaise Eyes Eyes: Denies blurry vision ENT HEENT: Denies headache(s) or nasal discharge Cardiovascular Cardiovascular: Reports chest pain and orthopnea; Denies dyspnea on exertion or syncope Respiratory/Chest Respiratory/Chest: Reports cough, shortness of breath at rest and shortness of breath with exertion Gastrointestinal Gastrointestinal: Denies constipation, diarrhea, nausea or vomiting Genitourinary Genitourinary: Denies dysuria Neurologic Neurologic: Denies focal weakness, numbness or tremor(s) Psychiatric Psychiatric: Denies anxiety or depression Vital Signs Vital Signs Vital Signs: 02/02/23 11:21 02/02/23 12:56 02/02/23 12:56 Temperature 98.1 F Temperature Source Oral Pulse Rate 118 H 106 H Respiratory Rate 18 17 Blood Pressure 119/81 H 123/84 H Blood Pressure Mean 93 97 Pulse Ox 97 95 Oxygen Delivery Method Room Air Room Air Room Air Oxygen Flow Rate (L/min) 02/02/23 15:50 02/02/23 16:00 02/02/23 15:30 Temperature 97 F L Temperature Source Temporal Pulse Rate 115 H 116 H Respiratory Rate 18 18 Blood Pressure 134/97 H 134/97 H Blood Pressure Mean 109 109 Pulse Ox 95 95 88 Oxygen Delivery Method Nasal Cannula Nasal Cannula Room Air Oxygen Flow Rate (L/min) 2 2 02/02/23 16:01 Temperature Temperature Source Pulse Rate Respiratory Rate 18 Blood Pressure Blood Pressure Mean Pulse Ox Oxygen Delivery Method Oxygen Flow Rate (L/min) Weight Weight: 167 lb 15.876 oz Body Mass Index (BMI) 27.1 Physical Exam Narrative General: Alert, Oriented x3, Cooperative, No apparent distress HEENT: Atraumatic, PERRLA, EOMI, Normocephalic Oral: Moist Mucosa Neck: Supple, No JVD Lungs: Diminished, Normal air movement, No rhonchi, No wheeze, rales Cardiovascular: Regular rate, Regular Rhythm, Normal S1, Normal S2, No murmurs, pain to palpation Abdomen: Soft, Non Tender, Non-Distended, No Hepato-splenomegaly Extremities: No edema, Capillary Refill Less than 3 Seconds Skin: No rashes, No breakdown Musculoskeletal: No Tenderness to Palpation of Joints or Extremities Neurological: Cranial nerves II-XII grossly intact, Motor Exam 5/5 strength throughout, Sensory exam intact to light touch and pain Psych/Mental Status: Normal Affect, Appropriate Results Lab / Micro Data 02/02/23 11:40 02/02/23 11:40 Labs: Laboratory Results - last 24 hr 02/02/23 11:40: WBC 7.9, RBC 4.79, Hgb 13.2, Hct 41.8, MCV 87.3, MCH 27.6, MCHC 31.6 L, RDW Std Deviation 41.2, RDW Coeff of Spencer 13.0, Plt Count 238, MPV 10.6, Immature Gran % (Auto) 0.400, Neut % (Auto) 70.1 H, Lymph % (Auto) 18.4 L, Erie % (Auto) 6.1, Eos % (Auto) 3.9, Baso % (Auto) 1.1 H, Absolute Neuts (auto) 5.5, Absolute Lymphs (auto) 1.45, Nucleated RBC % 0, D-Dimer Quant (PE/DVT) 0.99 H*, Sodium 138, Potassium 3.6, Chloride 104, Carbon Dioxide 30.0, Anion Gap 4 L, BUN8, Creatinine 0.69, Estim Creat Clear Calc 90.30, Est GFR (MDRD) Af Amer 116, Est GFR (MDRD) Non-Af 96, BUN/Creatinine Ratio 11.7, Glucose 249 H, Calcium 8.9,Troponin I High Sens 24 02/02/23 14:27: Troponin I High Sens 24 Radiology Impression Chest X-Ray 02/02/23 12:15 IMPRESSION: Mild degree of vascular congestion and CHF with bibasilar atelectasis. Electronically Signed: Ryan Tejeda MD at 12:38 EDT , Chest CTA 02/02/23 13:51 IMPRESSION: Bilateral pleural effusions with bibasilar atelectasis superimposed on mild degree of CHF. Small pericardial effusion. No evidence of pulmonary embolism. Electronically Signed: Ryan Tejeda MD at 14:27 EDT , Assessment & Plan Assessment/Plan (1) Acute exacerbation of CHF (congestive heart failure): PLAN: Plan 1. Acute on chronic systolic CHF/HTN/HLD/tobacco abuse/PAD ? She is borderline hypoxic down to 88% with activity ? Continue with oxygen and Lasix ? We will resume her home medications, will increase her Coreg to 6.25 ? We will adjust medications and monitor blood pressures ? Continue with Plavix ? Continue with nicotine patch ? She did have an angioplasty and stent of the right superficial femoral artery 08/10/2022 2. DM2 ? We will hold her home medication ? Continue with sliding scale insulin, Accu-Cheks ACHS ? We will monitor and make adjustments as necessary 3. GERD ? Stable ? Continue with PPI 4. Anxiety/depression ? Stable ? Continue with home medications DVT: Heparin 76 minutes was spent on direct patient care, including documentation as well as chart review and collaboration with colleagues Charges/Coding Visit Charges Inpatient E&M: 07169 Init Hosp L3 02/02/23 1756 <Electronically signed by Brandon Adames MD> Cosigner Signature (if applicable): CC: Dr. Brandon Adames MD; [facility]~ Signed [facility] Work Phone: 1(421) 718-713109-01-2023 History and physical note Author Brandon Adames [facility] February 02, 2023 5:56pm Note Date/Time February 02, 2023 5:08pm [facility] Medical Records Department [address] [place] [address] H&P Exam - Hospitalist 02/02/23 1627 MR#: [id number] Acct: [id number] Name: TRENTON JACKSON Rep #:[id number] : 1970 52 From: Brandon talavera MD [facility] atus:ADM REHAN Location: [place] [id number] 1 HPI - General General Date of Admission: 02/02/23 HPI Narrative TRENTON JACKSON, is a 52 F who presents with chest pain similar to the chest pain she had previously though slightly more intense. Troponins were unremarkable. CT of the chest was normal. The chest pain started intermittently over the last couple of days with no significant association to activity. She does also have a dry cough and has palpable chest pain as well though she is says that it is slightly different than the chest pain that brought her into the hospital. EKG is unremarkable. She did have an echo back in August with an EF of 15% as well as some diastolic dysfunction. She has been unable to follow-up with a resume writer since that time but states that she has been taking her medications appropriately and watching her diet. She comes in today because she is also been having some shortness of breath, she did drop heroxygen down to 88% and is managing on 2 L nasal cannula. She did receive a doseof Lasix in the ER. [facility] Medical History Acute dyspnea Aftercare following surgery of the circulatory system Alcohol abuse CAD (coronary artery disease), rincon coronary artery CHF (congestive heart failure) Depression Diabetes type 2, uncontrolled Essential hypertension GERD (gastroesophageal reflux disease) Hx of fracture of humerus Hyperlipidemia Hypoxemia Ischemic cardiomyopathy Myocardial infarct Osteoporosis Pericardial effusion Pulmonary embolism Smoker Substance abuse Toe amputee Home Medications cholecalciferol (vitamin D3) 25 mcg (1,000 unit) tablet 1,000 unit PO DAILY 07/25/22 [History Last Taken 02/01/23] atorvastatin 80 mg tablet 80 mg PO DAILY #90 tabs 08/09/22 [Rx Last Taken 02/01/23] calcium carbonate 500 mg calcium (1,250 mg) tablet 1 tablet PO DAILY 08/09/22 [History Last Taken 02/01/23] clopidogrel 75 mg tablet (Plavix) 75 mg PO DAILY #30 tabs 08/09/22 [Rx Last Taken 02/01/23] aspirin 81 mg capsule 81 mg PO DAILY 08/10/22 [History Last Taken 02/01/23] escitalopram oxalate 10 mg tablet 10 mg PO DAILY DEPRESSION 08/30/22 [History Last Taken 02/01/23] carvedilol 3.125 mg tablet 3.125 mg PO BID #60 tabs 09/02/22 [Rx Last Taken 02/01/23] nicotine 21 mg/24 hr daily transdermal patch 21 mg transdermal DAILY #30 ea 09/02/22 [Rx Last Taken 02/01/23] furosemide 20 mg tablet (Lasix) 20 mg PO DAILY #30 tabs 01/03/23 [Rx Last Taken 02/01/23] lisinopril 20 mg tablet 20 mg PO DAILY #30 tabs 01/03/23 [Rx Last Taken 02/01/23] glimepiride 4 mg tablet 4 mg PO BID 01/29/23 [History Last Taken 02/01/23] omeprazole 20 mg capsule,delayed release 20 mg PO DAILY 01/29/23 [History Last Taken 02/01/23] dulaglutide 3 mg/0.5 mL subcutaneous pen injector (Trulicity) 3 mg subcut QWEEK 02/02/23 [History Last Taken 02/01/23] Allergy/AdvReac Type Severity Reaction Status Date / Time latex Allergy Hives Verified 01/29/23 16:21 Family History (Updated 02/02/23 @ 17:[address] Brandon Adames MD) Other Heart disease Surgical History History of cholecystectomy Social History household members: spouse and children housing: house Smoking Status: Current every day smoker tobacco type: cigarettes alcohol intake: never substance use type: marijuana what type of physical activity do you participate in: none do you feel safe at home: Yes ROS Constitutional Constitutional: Denies chills, fatigue, fever(s) or malaise Eyes Eyes: Denies blurry vision ENT HEENT: Denies headache(s) or nasal discharge Cardiovascular Cardiovascular: Reports chest pain and orthopnea; Denies dyspnea on exertion or syncope Respiratory/Chest Respiratory/Chest: Reports cough, shortness of breath at rest and shortness of breath with exertion Gastrointestinal Gastrointestinal: Denies constipation, diarrhea, nausea or vomiting Genitourinary Genitourinary: Denies dysuria Neurologic Neurologic: Denies focal weakness, numbness or tremor(s) Psychiatric Psychiatric: Denies anxiety or depression Vital Signs Vital Signs Vital Signs: 02/02/23 11:21 02/02/23 12:56 02/02/23 12:56 Temperature 98.1 F Temperature Source Oral Pulse Rate 118 H 106 H Respiratory Rate 18 17 Blood Pressure 119/81 H 123/84 H Blood Pressure Mean 93 97 Pulse Ox 97 95 Oxygen Delivery Method Room Air Room Air Room Air Oxygen Flow Rate (L/min) 02/02/23 15:50 02/02/23 16:00 02/02/23 15:30 Temperature 97 F L Temperature Source Temporal Pulse Rate 115 H 116 H Respiratory Rate 18 18 Blood Pressure 134/97 H 134/97 H Blood Pressure Mean 109 109 Pulse Ox 95 95 88 Oxygen Delivery Method Nasal Cannula Nasal Cannula Room Air Oxygen Flow Rate (L/min) 2 2 02/02/23 16:01 Temperature Temperature Source Pulse Rate Respiratory Rate 18 Blood Pressure Blood Pressure Mean Pulse Ox Oxygen Delivery Method Oxygen Flow Rate (L/min) Weight Weight: 167 lb 15.876 oz Body Mass Index (BMI) 27.1 Physical Exam Narrative General: Alert, Oriented x3, Cooperative, No apparent distress HEENT: Atraumatic, PERRLA, EOMI, Normocephalic Oral: Moist Mucosa Neck: Supple, No JVD Lungs: Diminished, Normal air movement, No rhonchi, No wheeze, rales Cardiovascular: Regular rate, Regular Rhythm, Normal S1, Normal S2, No murmurs, pain to palpation Abdomen: Soft, Non Tender, Non-Distended, No Hepato-splenomegaly Extremities: No edema, Capillary Refill Less than 3 Seconds Skin: No rashes, No breakdown Musculoskeletal: No Tenderness to Palpation of Joints or Extremities Neurological: Cranial nerves II-XII grossly intact, Motor Exam 5/5 strength throughout, Sensory exam intact to light touch and pain Psych/Mental Status: Normal Affect, Appropriate Results Lab / Micro Data 02/02/23 11:40 02/02/23 11:40 Labs: Laboratory Results - last 24 hr 02/02/23 11:40: WBC 7.9, RBC 4.79, Hgb 13.2, Hct 41.8, MCV 87.3, MCH 27.6, MCHC 31.6 L, RDW Std Deviation 41.2, RDW Coeff of Spencer 13.0, Plt Count 238, MPV 10.6, Immature Gran % (Auto) 0.400, Neut % (Auto) 70.1 H, Lymph % (Auto) 18.4 L, Erie % (Auto) 6.1, Eos % (Auto) 3.9, Baso % (Auto) 1.1 H, Absolute Neuts (auto) 5.5, Absolute Lymphs (auto) 1.45, Nucleated RBC % 0, D-Dimer Quant (PE/DVT) 0.99 H*, Sodium 138, Potassium 3.6, Chloride 104, Carbon Dioxide 30.0, Anion Gap 4 L, BUN8, Creatinine 0.69, Estim Creat Clear Calc 90.30, Est GFR (MDRD) Af Amer 116, Est GFR (MDRD) Non-Af 96, BUN/Creatinine Ratio 11.7, Glucose 249 H, Calcium 8.9,Troponin I High Sens 24 02/02/23 14:27: Troponin I High Sens 24 Radiology Impression Chest X-Ray 02/02/23 12:15 IMPRESSION: Mild degree of vascular congestion and CHF with bibasilar atelectasis. Electronically Signed: Ryan Tejeda MD at 12:38 EDT , Chest CTA 02/02/23 13:51 IMPRESSION: Bilateral pleural effusions with bibasilar atelectasis superimposed on mild degree of CHF. Small pericardial effusion. No evidence of pulmonary embolism. Electronically Signed: Ryan Tejeda MD at 14:27 EDT , Assessment & Plan Assessment/Plan (1) Acute exacerbation of CHF (congestive heart failure): PLAN: Plan 1. Acute on chronic systolic CHF/HTN/HLD/tobacco abuse/PAD ? She is borderline hypoxic down to 88% with activity ? Continue with oxygen and Lasix ? We will resume her home medications, will increase her Coreg to 6.25 ? We will adjust medications and monitor blood pressures ? Continue with Plavix ? Continue with nicotine patch ? She did have an angioplasty and stent of the right superficial femoral artery 08/10/2022 2. DM2 ? We will hold her home medication ? Continue with sliding scale insulin, Accu-Cheks ACHS ? We will monitor and make adjustments as necessary 3. GERD ? Stable ? Continue with PPI 4. Anxiety/depression ? Stable ? Continue with home medications DVT: Heparin 76 minutes was spent on direct patient care, including documentation as well as chart review and collaboration with colleagues Charges/Coding Visit Charges Inpatient E&M: 31386 Init Hosp L3 02/02/23 1756 <Electronically signed by Brandon Adames MD> Cosigner Signature (if applicable): CC: Dr. Brandon Adames MD; [facility]~ Signed [facility] Work Phone: 1(577) 858-480409-01-2023 Discharge summary Author Zack Card [facility] February 02, 2023 3:56pm Note Date/Time February 02, 2023 12:13pm [facility] Medical Records Department [address] [place] [address] Emergency Department Summary 02/02/23 MR#: [id number] Acct: [id number] Name: TRENTON JACKSON Rep #:[id number] : 1970 52 From: Zack Han PCP: [facility] St atus:REG ER Location: ED HPI History of Present Illness Chief Complaint: Chest Pain Informant: patient Narrative Narrative: Due to history intermittent midsternal chest pains worse with deep breaths. Worsened 6 AM. No history of coronary disease however states congestive heart failure. She states was told me about heart attack 30 years ago. States lastmonth admitted for heart failure or fluid overload there is no thoracentesis performed. She is on a diuretic. She is taking it daily. Denies orthopnea. Denies cough. Denies any significant leg swelling. Hypertension diabetes hyperlipidemia peripheral vascular disease with a right lower leg stent. Reports history of DVT and PE in the past he is unclear if she still on blood thinners of Eliquis. She does take Plavix for her peripheral vascular disease. Records reviewing for admission there is no other anticoagulants. Denies nauseavomiting diarrhea. Prior Similar Symptoms: Yes CVD Risk Factors: Positive for Hypertension, Diabetes, Hypercholesterolemia and Smoking PE Risk Factors: Positive for Prior DVT or PE [facility] Medical History Acute dyspnea Aftercare following surgery of the circulatory system Alcohol abuse CAD (coronary artery disease), rincon coronary artery CHF (congestive heart failure) Depression Diabetes type 2, uncontrolled Essential hypertension GERD (gastroesophageal reflux disease) Hx of fracture of humerus Hyperlipidemia Hypoxemia Ischemic cardiomyopathy Myocardial infarct Osteoporosis Pericardial effusion Pulmonary embolism Smoker Substance abuse Toe amputee Home Medications cholecalciferol (vitamin D3) 25 mcg (1,000 unit) tablet 1,000 unit PO DAILY 07/25/22 [History Last Taken 02/01/23] atorvastatin 80 mg tablet 80 mg PO DAILY #90 tabs 08/09/22 [Rx Last Taken 02/01/23] calcium carbonate 500 mg calcium (1,250 mg) tablet 1 tablet PO DAILY 08/09/22 [History Last Taken 02/01/23] clopidogrel 75 mg tablet (Plavix) 75 mg PO DAILY #30 tabs 08/09/22 [Rx Last Taken 02/01/23] aspirin 81 mg capsule 81 mg PO DAILY 08/10/22 [History Last Taken 02/01/23] escitalopram oxalate 10 mg tablet 10 mg PO DAILY DEPRESSION 08/30/22 [History Last Taken 02/01/23] carvedilol 3.125 mg tablet 3.125 mg PO BID #60 tabs 09/02/22 [Rx Last Taken 02/01/23] nicotine 21 mg/24 hr daily transdermal patch 21 mg transdermal DAILY #30 ea 09/02/22 [Rx Last Taken 02/01/23] furosemide 20 mg tablet (Lasix) 20 mg PO DAILY #30 tabs 01/03/23 [Rx Last Taken 02/01/23] lisinopril 20 mg tablet 20 mg PO DAILY #30 tabs 01/03/23 [Rx Last Taken 02/01/23] glimepiride 4 mg tablet 4 mg PO BID 01/29/23 [History Last Taken 02/01/23] omeprazole 20 mg capsule,delayed release 20 mg PO DAILY 01/29/23 [History Last Taken 02/01/23] dulaglutide 3 mg/0.5 mL subcutaneous pen injector (Trulicity) 3 mg subcut QWEEK 02/02/23 [History Last Taken 02/01/23] Allergy/AdvReac Type Severity Reaction Status Date / Time latex Allergy Hives Verified 01/29/23 16:21 Surgical History History of cholecystectomy Social History household members: spouse and children housing: house Smoking Status: Current every day smoker tobacco type: cigarettes alcohol intake: never substance use type: marijuana what type of physical activity do you participate in: none do you feel safe at home: Yes ROS ROS ED Constitutional Constitutional ED: Denies chills, fever(s) or sweats Eyes Eyes: Denies change in vision ENT ENT ED: Denies dysphagia or sore throat Cardiovascular Cardiovascular: Reports chest pain; Denies leg edema, palpitations or racing heartbeat Respiratory/Chest Respiratory/Chest: Reports dyspnea; Denies cough or dyspnea on exertion Gastrointestinal Gastrointestinal: Denies abdominal pain, diarrhea, nausea or vomiting Genitourinary Genitourinary ED: Denies dysuria, hematuria or urinary frequency Musculoskeletal Musculoskeletal: Denies back pain, extremity pain or neck pain Integumentary Denies rash or wounds Neurologic Neurologic: Denies headache(s), paresthesias or weakness EXAM Physical Exam Const Vital Signs: 02/02/23 11:21 02/02/23 12:56 02/02/23 12:56 Temperature 98.1 F Temperature Source Oral Pulse Rate 118 H 106 H Respiratory Rate 18 17 Blood Pressure 119/81 H 123/84 H Blood Pressure Mean 93 97 Pulse Ox 97 95 Oxygen Delivery Method Room Air Room Air Room Air Positive well nourished and well developed General Appearance ED: well developed and NAD HEENT Reports moist mucous membranes normocephalic and atraumatic Eyes PERRL, EOMs intact bilaterally and conjunctivae normal General Eye ED: Yes normal appearance of both eyes Neck no lymphadenopathy and supple General: Negative for tenderness Chest Wall Chest: Negative for tenderness Resp normal respiratory effort and normal air movement Effort and Inspection: symmetric chest movement; Negative for respiratory distress Cardio regular rhythm and no murmurs Rate: tachycardic Peripheral Pulses: pulses 2+ throughout GI normal to inspection, nondistended, normoactive bowel sounds and non-tender Palpation: Negative for guarding or rebound tenderness present Back/Spine no CVA tenderness and no thoracic nor lumbar tenderness Extremity normal to inspection Extremity Narrative: Minimal lower extremity edema, left foot with amputations of all distal toes. Right foot amputation of the second toe. General Extremety ED: Yes edema; Negative for tenderness General Extremity: edema Neuro oriented x3 and no sensory deficits noted Sensorium / Orientation: awake and alert Skin no rashes or lesions noted and no wounds Heart Score History: Slightly/Non-Suspicious ECG: Normal Age: >45 - <65 years Risk Factors: >/= 3 Risk Factors or History of CAD Troponin: </= Normal Limit Score: 3 MDM MDM MDM Narrative Medical decision making narrative: Interventions / MDM: Differential diagnosis: Atypical chest pain, CHF exacerbation Diagnosis considered but do not suspect: ACS, EKG no acute findings negative cardiac enzymes. Pulmonary embolism however negative CT scan. My EKG interpretation: Sinus rate of 109, no ST changes T wave inversions extreme lateral leads flattening on V4 to V6. Intraventricular delay. Similar EKG from January 01, 2023. Imaging independently reviewed and interpreted by myself: 2 view chest x-ray: Mild vascular congestion. CTA chest: No PE bilateral pleural effusions. Also read by radiology. External documents reviewed: Echocardiogram August 2022 EF of 15%. Test considered but not ordered:N/A ED course: Patient with chest pains EKG sinus tachycardia. Cardiac work-up initiated added BNP for history of heart failure. She had breath sounds down toher lungs that were clear. Low risk Wells criteria for PE, D-dimer obtain for further evaluation. Aspirin ordered, morphine for pain control. 1500: Initial cardiac enzymes negative. White count 7.9 hemoglobin 13.2. Creatinine 0.69. D-dimer is elevated 0.99. Subsequent CT of the chest order, no PE bilateral pleural effusions noted. Reported by nursing, laying down she became hypoxic 88 start 2 L and increased to 4 L. Reported increasing pain, additional morphine was ordered. With her hypoxia pleural effusions noted EF 15% back in August, Lasix 40 mils IV was ordered. We will plan to discuss with hospital service for admission. 1545: I spoke with Dr. Adames for admission to PCU. Re-evaluation: stable Disposition discussed with patient/family/significant other: Patient Case discussed with consulting clinician: Hospitalist This note was generated with Haversackation software. It may contain incorrectwords, spelling, and punctuation that were not noted in checking the note beforesigning. Lab Data Attestation: I reviewed the patient's lab results. Labs: Laboratory Results - last 24 hr 02/02/23 02/02/23 11:40 14:27 WBC 7.9 RBC 4.79 Hgb 13.2 Hct 41.8 MCV 87.3 MCH 27.6 MCHC 31.6 L RDW Std Deviation 41.2 RDW Coeff of Spencer 13.0 Plt Count 238 MPV 10.6 Immature Gran % (Auto) 0.400 Neut % (Auto) 70.1 H Lymph % (Auto) 18.4 L Erie % (Auto) 6.1 Eos % (Auto) 3.9 Baso % (Auto) 1.1 H Absolute Neuts (auto) 5.5 Absolute Lymphs (auto) 1.45 Nucleated RBC % 0 D-Dimer Quant (PE/DVT) 0.99 H* Sodium 138 Potassium 3.6 Chloride 104 Carbon Dioxide 30.0 Anion Gap 4 L BUN 8 Creatinine 0.69 Estim Creat Clear Calc 90.30 Est GFR (MDRD) Af Amer 116 Est GFR (MDRD) Non-Af 96 BUN/Creatinine Ratio 11.7 Glucose 249 H Calcium 8.9 Troponin I High Sens 24 24 Radiography Diagnostic Testing: Clinical Impression(s) from Imaging Studies Chest X-Ray 02/02/23 12:15 IMPRESSION: Mild degree of vascular congestion and CHF with bibasilar atelectasis. Electronically Signed: Ryan Tejeda MD at 12:38 EDT , Chest CTA 02/02/23 13:51 IMPRESSION: Bilateral pleural effusions with bibasilar atelectasis superimposed on mild degree of CHF. Small pericardial effusion. No evidence of pulmonary embolism. Electronically Signed: Ryan Tejeda MD at 14:27 EDT , Discharge Plan Dx/Rx/DC Orders Clinical Impression: Acute exacerbation of CHF (congestive heart failure), Chest pain, Hypoxia, Bilateral pleural effusion Disposition Disposition: Acute Care Hospital [facility] What to do if you have Problems For any increased pain, shortness of breath, bleeding, nausea or vomiting, chestpain, or any unexpected problems, contact your Primary Care Provider. Call [facility] ([phone]) or report to the closest Emergency Room. Call 911 if necessary. 02/02/23 1556 <Electronically signed by Zack Han> Cosigner Signature (if applicable): CC: [facility] ~ Signed [facility] Work Phone: 1(382) 712-996808-02-2023 Consult note Author Josse Garcia [facility] January 03, 2023 11:29am Note Date/Time January 03, 2023 11: 09am [facility] Medical Records Department [address] [place] [address] Counseling Note - Pharmacy 01/03/23 1106 MR#: [id number] Acct: [id number] Name: TRENTON JACKSON Rep #:[id number] : 1970 52 From: Josse Garcia PCP: [facility] St atus:ADM IN Y [id number] Service has performed discharge medication reconciliation and counseling for this patient. The patient's discharge medication list was reviewed for discrepancies and discrepancies were resolved. The patient was counseled on the following discharge medications and changes in medications for homegoing were reviewed. The Reason for Use, instructions for use, and potential side effects were reviewed for all new medications. The patient's questions regarding all of their medications were answered. 1. Oxycodone 10 mg PO Q6H PRN pain 2. Prochlorperazine 10 mg PO Q6H PRN nausea/vomiting 3. Furosemide 20 mg PO daily The patient was able to verbally demonstrate an understanding of their dischargemedications. Medications at Discharge Home Medications cholecalciferol (vitamin D3) 25 mcg (1,000 unit) tablet 1,000 unit PO DAILY 07/25/22 omeprazole 40 mg capsule,delayed release 40 mg PO DAILY #30 caps 07/25/22 atorvastatin 80 mg tablet 80 mg PO DAILY #90 tabs 08/09/22 calcium carbonate 500 mg calcium (1,250 mg) tablet 1 tablet PO DAILY 08/09/22 clopidogrel 75 mg tablet (Plavix) 75 mg PO DAILY #30 tabs 08/09/22 glimepiride 4 mg tablet 1 tablet PO DAILY 08/09/22 aspirin 81 mg capsule 81 mg PO DAILY 08/10/22 escitalopram oxalate 10 mg tablet 10 mg PO DAILY DEPRESSION 08/30/22 carvedilol 3.125 mg tablet 3.125 mg PO BID #60 tabs 09/02/22 nicotine 21 mg/24 hr daily transdermal patch 21 mg transdermal DAILY #30 ea 09/02/22 furosemide 20 mg tablet (Lasix) 20 mg PO DAILY #30 tabs 01/03/23 insulin glargine-yfgn 100 unit/mL (3 mL) subcutaneous pen 15 unit (0.15 mL) subcut BID #0 mL 01/03/23 lisinopril 20 mg tablet 20 mg PO DAILY #30 tabs 01/03/23 oxycodone 5 mg tablet 10 mg (2 x 5 mg) PO Q6H PRN PRN Pain Score 6-10 4 days #20tabs 01/03/23 prochlorperazine maleate 10 mg tablet (Compazine) 10 mg PO Q6H PRN nausea and vomiting #30 tabs 01/03/23 01/03/23 1109 <Electronically signed by Josse zapata Date _ Josse Angel Signature (if applicable): Date CC: ~ Signed ADDENDUM by Josse Garcia on 01/03/23 at 1129 The payable manager Paula is discussing with patient if they have adequate pen needles at home for their long-acting insulin, and will discuss with MD if more are needed. 01/03/23 1129 <Electronically signed by Josse osborne> Date _ Josse Garcia Signature (if applicable): _ cc: ~* Signed [facility] Work Phone: 1(152) 628-351408-02-2023 Discharge summary Author Sabina Rosenberg [facility] January 03, 2023 10:26am Note Date/Time January 03, 2023 10: 18am [facility] Medical Records Department [address] [address] [address] Instructions for Home/Discharge Instructions 01/03/23 1018 MR#: [id number] Acct: [id number] Name: ROSEMARYLJTRENTON DEON Rep #:[id number] : 1970 52 From: Sabina Rosenberg DO PCP: [facility] St atus:ADM IN Discharge Instructions Diet Discharge Diet: 1800 Calorie Control Diet Activity Discharge Activity: Return to Normal Activity Weight Bearing Status: Full weight bearing Follow Up Care Test Results: Test results from this visit will be discussed in further detail at your follow- up appointment, if applicable. Discharge Plan Admission Admit Date/Time: 01/01/23 17:14 Primary Reason for Your Visit: Congestive heart failure, pleurisy Attending Provider: Sabina Rosenberg Primary Care Provider: [facility] Discharge Orders/Prescriptions Prescriptions: New lisinopril 20 mg Tablet 20 mg PO DAILY Qty: 30 0RF oxycodone 5 mg Tablet 10 mg PO Q6H PRN PRN (Reason: Pain Score 6-10) 4 Days Qty: 20 0RF insulin glargine-yfgn 100 unit/mL (3 mL) Insulin Pen 15 unit subcut BID Qty: 0 0RF furosemide [Lasix] 20 mg tablet 20 mg PO DAILY Qty: 30 0RF prochlorperazine maleate [Compazine] 10 mg tablet 10 mg PO Q6H PRN (Reason: nausea and vomiting) Qty: 30 0RF Continued glimepiride 4 mg tablet 1 tablet PO DAILY calcium carbonate 500 mg calcium (1,250 mg) tablet 1 tablet PO DAILY atorvastatin 80 mg tablet 80 mg PO DAILY Qty: 90 3RF clopidogrel [Plavix] 75 mg tablet 75 mg PO DAILY Qty: 30 2RF cholecalciferol (vitamin D3) 25 mcg (1,000 unit) tablet 1,000 unit PO DAILY Patient Comments: TAKE 1 TABLET DAILY omeprazole 40 mg capsule,delayed release(DR/EC) 40 mg PO DAILY Qty: 30 0RF aspirin 81 mg Capsule 81 mg PO DAILY escitalopram oxalate 10 mg Tablet 10 mg PO DAILY Patient Comments: HAS NOT REFILLED SINCE 04/25, BUT STATES SHE TAKES DAILY carvedilol 3.125 mg Tablet 3.125 mg PO BID Qty: 60 0RF nicotine 21 mg/24 hr Patch 24 Hour 21 mg transdermal DAILY Qty: 30 0RF Discontinued desvenlafaxine succinate 25 mg tablet extended release 24 hr 1 ea PO DAILY Patient Comments: TAKE 1 TABLET BY MOUTH DAILY FOR 5 DAYS, THEN INCREASE TO 2 (TWO) TABLETS DAILY trazodone 50 mg tablet 25 - 100 mg PO QHS PRN (Reason: Insomnia) cilostazol 50 mg tablet 50 mg PO BID Qty: 60 2RF alendronate 70 mg tablet 70 mg PO WE Patient Comments: take one tablet weekly HAS ONLY TAKEN 1X SINCE RX'D insulin glargine [Lantus Solostar U-100 Insulin] 100 unit/mL (3 mL) insulin pen 10 units subcut BID dicyclomine 20 mg tablet 20 mg PO BID Qty: 14 0RF lisinopril 10 mg Tablet 10 mg PO DAILY Qty: 30 0RF ondansetron 4 mg tablet,disintegrating 4 mg PO Q8H PRN PRN (Reason: Nausea) Qty: 10 0RF ondansetron [ondansetron] 4 mg tablet,disintegrating 4 mg PO Q8H PRN PRN (Reason: Nausea) Qty: 10 0RF ondansetron [ondansetron] 4 mg tablet,disintegrating 4 mg PO Q8H PRN PRN (Reason: Nausea) Qty: 10 0RF Referrals / Follow Up: Alli Brito MD [Med Staff - Active Staff] - 02/28/23 11:00 am [facility] [Primary Care Provider] - Within 2 Weeks Disposition Disposition (needs filled in before D/C Order can be placed): Home, Self Care 01/03/23 1026<Electronically signed by Sabina Rosenberg DO>Sabina Rosenberg DO CC: [facility] ~ Signed [facility] Work Phone: 1(974) 121-588308-01-2023 Progress note Author Sabina [facility] January 02, 2023 5:29pm Note Date/Time January 02, 2023 5:3 0pm [facility] Medical Records Department [address] [place] [address] Progress Note - Hospitalist 01/02/23 1726 MR#: [id number] Acct: [id number] Name: TRENTON JACKSON Rep #:[id number] : 1970 52 From: Sabina Rosenberg DO PCP: [facility] atus:ADM IN Location: [place] [id number] Reason for Visit Reason for Visit: Diagnoses Chest pain, unspecified (01/01/23) Subjective Subjective Patient was seen and examined today, she is no longer on any oxygen, I had a brief discussion with her mother by phone today and the patient has been undergoing some psychological stress with the loss of her children to foster care and the break- up of her marriage. I told the mother that since the mother provides transportation for the patient to go to office visits that I would get an appointment at [place] [facility] for the patient to follow-up with her cardiomyopathy. Patient's mother felt that that was a good idea. Objective Data Objective Data Vital Signs: Vital Signs Temp Pulse Resp BP Pulse Ox O2 Del Method O2 Flow Rate 97.8 F 90 15 120/80 97 Room Air 2 01/02/23 15:55 01/02/23 15:55 01/02/23 15:55 01/02/23 15:55 01/02/23 15:55 01/02/23 15:55 01/02/23 08:20 Oxygen Flow Rate (L/min) 2 Oxygen Delivery Method Room Air Weight: 72.938 kg Body Mass Index (BMI) 25.9 Intake & Output: Intake and Output for Last 24 Hours 07/30/23 07/31/23 08/01/23 23:59 23:59 23:59 Intake Total 1000 / 1240 1630 / 1630 Balance 1000 / 1240 1630 / 1630 Lab / Micro Data 01/01/23 13:50 01/02/23 09:35 Labs: Laboratory Results - last 24 hr 01/01/23 21:23: POC Glucose 255 H 01/02/23 06:00: POC Glucose 236 H 01/02/23 09:35: Sodium 136, Potassium 3.7, Chloride 100, Carbon Dioxide 30.0, Anion Gap 6, BUN 6 L, Creatinine 0.72, Estim Creat Clear Calc 86.54, Est GFR (MDRD) Af Amer 109, Est GFR (MDRD) Non-Af 90, BUN/Creatinine Ratio 8.3 L, Glucose 293 H, Calcium 8.7 01/02/23 11:21: POC Glucose 333 H Micro: Microbiology 01/01/23 15:12 Nasal Secretion SARS-CoV-2 & FLU Antigen (Rapid) - Final Physical Exam Narrative alert, oriented x3, no apparent distress and average body habitus Constitutional Narrative: Patient appears older than her stated age General Appearance: cooperative and well developed Orientation / Consciousness: awake, oriented to person, oriented to place and oriented to time HEENT normocephalic and moist oral mucous membranes Eyes PERRL, EOMs intact bilaterally and conjunctivae normal Neck supple, no JVD, thyroid normal and no carotid bruits General: trachea midline Resp normal respiratory effort, no retractions and no use of accessory muscles Resp Narrative: Breath sounds are diminished bilaterally more so on the right Auscultation: Negative for rales, rhonchi or wheezes Cardio regular rate, regular rhythm, S1 normal heart sound, S2 normal heart sound, no murmurs, no rub and no gallops GI normal to inspection, nondistended, normoactive bowel sounds, soft to palpation,non-tender and non-distended Extremity no clubbing, cyanosis or edema Skin no rashes or lesions noted General Skin Exam: no breakdown Neuro oriented x3, CN's II-XII intact bilaterally, moves all extremities, no focal motor deficits and no sensory deficits noted Sensorium / Orientation: awake, alert, oriented to person, oriented to place andoriented to time Speech: speech normal Psych affect normal Assessment & Plan Assessment/Plan (1) Pleural effusion: (2) Chest pain: PLAN: Plan 1. Acute on chronic systolic congestive heart failure-continue IV Lasix at thistime, labs will be monitored #2 noncompliance with medical regimen-I do not have a clear picture of why the patient chooses not to take her medications, she does not pay for her medications, she also does not follow-up with her physicians as directed, I contacted [place] [facility] and they will make an appointment for the patient to follow-up for ongoing care. #3 cardiomyopathy, probably ischemic in nature-patient will need close follow- upwith a resume writer after her discharge from the hospital, I impressed upon her that she needs to follow through with this #4 pleurisy-etiology unclear at this point, I do not think the patient has an active infection such as a pneumonia at this time, patient's Vicodin was stoppedbecause it was not helping, she was placed on Oxy IR 15 mg every 6 hours as needed for chest pain. #5 type 2 diabetes-noncompliant with treatment-patient's blood sugars will be monitored, sliding scale insulin will be used as needed, again I am unsure exactly what medications she takes as an outpatient for her type 2 diabetes. #6 peripheral vascular disease-I will maintain the patient on Plavix and aspirin, she is supposed to be on Pletal but it appears that she is not taking it at this time #7 chronic depression-it does not appear that the patient is refilling her antidepressants as directed, I will encourage her to follow-up with counseling as an outpatient #8 coronary artery disease-patient has a history of coronary artery disease, according to medical records in the past at this hospital, patient was noted to have diffuse severe disease of her distal LAD in 2018-at that time it did not appear that she needed intervention. Patient will need close follow-up as an outpatient concerning this. #9 hyperlipidemia-patient will remain on Lipitor, it appears that she has not been taking this as an outpatient Total clinical time spent by myself addressing the patient's medical issues, reviewing all of her data, and collaborating with the patient's care team: 50 minutes Charges/Coding Visit Charges Inpatient E&M: 99482 Subs Hosp L3 01/02/23 9537 <Electronically signed by Sabina Rosenberg DO> Cosigner Signature (if applicable): CC: ~ Signed [facility] Work Phone: 1(482) 986-598407-31-2023 History and physical note Author Sabina Rosenberg [facility] January 01, 2023 9:28pm Note Date/Time January 01, 2023 9:28 pm [facility] Medical Records Department [address] [place] [address] H&P Exam - Hospitalist 01/01/232112 MR#: [id number] Acct: [id number] Name: TRENTON JACKSON Rep #:[id number] : 1970 52 From: Sabina Rosenberg DO PCP: [facility] atus:ADM IN Location: [facility] [id number] HPI - General General Date of Admission: 01/01/23 Date of Service: 01/01/23 Chief Complaint: Shortness of breath, cough, chest pain on coughing and deep breathing HPI Narrative TRENTON JACKSON, is a 52 F who presents to the emergency room at [facility] with complaints of cough productive of clear phlegm, chest pain on coughing and deep breathing, and shortness of breath which started approximately 2 days ago. Patient also stated that she had some left-sided chest pain and left arm pain today. Patient had been hospitalized in September and found to have a cardiomyopathy, she was referred to a PCP, [facility] to make an appointment with [facility]. It also appears that the patient has not been taking her medications as directed, I called her pharmacy and found out that the patient had not picked upseveral medications for an extended period of time. Work-up in the emergency room included a chest CTA which showed small bilateral pleural effusions and a small pericardial effusion, there was evidence of prominence of the interstitial markings in both lungs suggestive of possible CHF. Upon arrival in the emergency room today, patient required 2 L of nasal cannula oxygen, at one time however she required 5 L and then 15 L of nasal cannula oxygen. Nursing states that during this timeframe she did receive IV morphine for chest discomfort however. Labs obtained on the patient revealed a normal white blood cell count, hemoglobin was normal, glucose was elevated at 344, and beta natruretic peptide was 573. Patient's rapid COVID and influenza antigens were negative. Patient will be admitted to PCU for acute systolic congestive heart failure, it appears that she has been noncompliant with her medications, I addressed this with the patient and she states that she feels the medications do not make her feel good but she cannot give me any examples of which medications she feels causes her to be unwell. [facility] Medical History (Updated 01/01/23 @ 17:18 by Elisabeth Elizalde) Alcohol abuse CAD (coronary artery disease), rincon coronary artery CHF (congestive heart failure) Congestive heart failure (CHF) Depression GERD (gastroesophageal reflux disease) GERD (gastroesophageal reflux disease) HTN (hypertension) Hx of fracture of humerus Hyperlipidemia Hypertension Myocardial infarct Osteoporosis Pulmonary embolism Smoker Substance abuse Toe amputee Home Medications alendronate 70 mg tablet 70 mg PO [facility] 07/25/22 [History Last Taken Unknown] cholecalciferol (vitamin D3) 25 mcg (1,000 unit) tablet 1,000 unit PO DAILY 07/25/22 [History Last Taken Unknown] insulin glargine 100 unit/mL (3 mL) subcutaneous pen (Lantus Solostar U-100 Insulin) 10 units subcut BID 07/25/22 [History Last Taken Unknown] omeprazole 40 mg capsule,delayed release 40 mg PO DAILY #30 caps 07/25/22 [Rx Last Taken Unknown] dicyclomine 20 mg tablet 20 mg PO BID #14 tabs 08/03/22 [Rx Last Taken Unknown] atorvastatin 80 mg tablet 80 mg PO DAILY #90 tabs 08/09/22 [Rx Last Taken Unknown] calcium carbonate 500 mg calcium (1,250 mg) tablet 1 tablet PO DAILY 08/09/22 [History Last Taken Unknown] cilostazol 50 mg tablet 50 mg PO BID #60 tabs 08/09/22 [Rx Last Taken Unknown] clopidogrel 75 mg tablet (Plavix) 75 mg PO DAILY #30 tabs 08/09/22 [Rx Last Taken Unknown] desvenlafaxine succinate 25 mg tablet,extended release 24 hr 1 ea PO DAILY 08/09/22 [History Last Taken Unknown] glimepiride 4 mg tablet 1 tablet PO DAILY 08/09/22 [History Last Taken Unknown] trazodone 50 mg tablet 25 - 100 mg PO QHS PRN Insomnia 08/09/22 [History Last Taken Unknown] aspirin 81 mg capsule 81 mg PO DAILY 08/10/22 [History Last Taken 08/10/22] escitalopram oxalate 10 mg tablet 10 mg PO DAILY DEPRESSION 08/30/22 [History Last Taken Unknown] carvedilol 3.125 mg tablet 3.125 mg PO BID #60 tabs 09/02/22 [Rx Last Taken Unknown] lisinopril 10 mg tablet 10 mg PO DAILY #30 tabs 09/02/22 [Rx Last Taken Unknown] nicotine 21 mg/24 hr daily transdermal patch 21 mg transdermal DAILY #30 ea 09/02/22 [Rx Last Taken Unknown] ondansetron 4 mg disintegrating tablet 4 mg PO Q8H PRN PRN Nausea #10 tabs 09/10/22 [Rx Last Taken Unknown] ondansetron 4 mg disintegrating tablet 4 mg PO Q8H PRN PRN Nausea #10 tabs 09/11/22 [Rx Last Taken Unknown] ondansetron 4 mg disintegrating tablet 4 mg PO Q8H PRN PRN Nausea #10 tabs 09/18/22 [Rx Last Taken Unknown] Allergy/AdvReac Type Severity Reaction Status Date / Time latex Allergy Hives Verified 01/01/23 16:52 Family History Other Diabetes Heart disease Surgical History History of cholecystectomy Social History household members: spouse and children housing: house Smoking Status: Current every day smoker tobacco type: cigarettes alcohol intake: never what type of physical activity do you participate in: none do you feel safe at home: Yes ROS Constitutional Constitutional: Reports weakness; Denies anorexia, change in weight, chills, fatigue, fever(s), malaise or night sweats Eyes Eyes: Denies blurry vision, change in vision, discharge from eye(s) or eye pain Cardiovascular Cardiovascular: Reports chest pain and dyspnea on exertion; Denies claudication,edema or palpitations Respiratory/Chest Respiratory/Chest: Reports cough, shortness of breath at rest and shortness of breath with exertion; Denies hemoptysis Gastrointestinal Gastrointestinal: Denies abdominal pain, constipation, diarrhea, hematemesis, hematochezia, melena, nausea or vomiting Genitourinary Genitourinary: Denies dysuria, hematuria, urinary frequency, urinary hesitancy, urinary incontinence or urinary urgency Musculoskeletal Musculoskeletal: Denies back pain, joint pain, joint stiffness, joint swelling, myalgias or neck pain Neurologic Neurologic: Denies abnormal gait, abnormal speech, confusion, dizziness, focal weakness, headache(s), loss of vision, numbness, other visual disturbances, paresthesias, syncope or tingling Psychiatric Psychiatric: Reports anxiety and depression; Denies cognitive impairment, irritability, mood swings or suicidal ideation Endocrine Endocrinology: Denies change in body appearance, cold intolerance, excessive sweating, heat intolerance, polydipsia or polyuria Hematologic/Lymphatic Hematologic/Lymphatic: Denies none, anemia, easy bleeding, easy bruising or lymphadenopathy Allergic/Immunologic Allergic/Immunologic: Denies rhinitis, urticaria, eczemia or asthma Vital Signs Vital Signs Vital Signs: 01/01/23 12:11 01/01/23 12:14 01/01/23 12:26 Temperature 98.2 F Temperature Source Oral Pulse Rate 112 H 106 H Respiratory Rate 18 14 Respiratory Effort Normal Non-Labored Respiratory Depth Normal Respiratory Pattern Normal Blood Pressure 152/96 H 130/87 H Blood Pressure Mean 114 101 Blood Pressure Source Blood Pressure Position Blood Pressure Location Pulse Ox 97 96 Oxygen Delivery Method Room Air Room Air Oxygen Flow Rate (L/min) 01/01/23 13:46 01/01/23 14:10 01/01/23 14:10 Temperature Temperature Source Pulse Rate Respiratory Rate 22 H 18 Respiratory Effort Respiratory Depth Respiratory Pattern Blood Pressure Blood Pressure Mean Blood Pressure Source Blood Pressure Position Blood Pressure Location Pulse Ox 85 95 Oxygen Delivery Method Room Air Room Air Nasal Cannula Oxygen Flow Rate (L/min) 2 01/01/23 14:29 01/01/23 14:29 01/01/23 15:15 Temperature Temperature Source Pulse Rate 104 H Respiratory Rate 20 H 18 20 H Respiratory Effort Respiratory Depth Respiratory Pattern Blood Pressure 128/89 H Blood Pressure Mean 102 Blood Pressure Source Blood Pressure Position Blood Pressure Location Pulse Ox 85 92 85 Oxygen Delivery Method Nasal Cannula Nasal Cannula Nasal Cannula Oxygen Flow Rate (L/min) 2 5 5 01/01/23 15:16 01/01/23 16:36 01/01/23 17:30 Temperature 98.2 F 98.5 F Temperature Source Oral Oral Pulse Rate 105 H 103 H Respiratory Rate 20 H 18 19 H Respiratory Effort Respiratory Depth Respiratory Pattern Blood Pressure 140/96 H 129/90 H Blood Pressure Mean 110 103 Blood Pressure Source Monitor Blood Pressure Position Semi-Fowlers Blood Pressure Location Right Arm Pulse Ox 93 98 97 Oxygen Delivery Method Non-Rebreather Nasal Cannula Nasal Cannula Oxygen Flow Rate (L/min) 15 2 2 01/01/23 18:00 Temperature Temperature Source Pulse Rate Respiratory Rate Respiratory Effort Respiratory Depth Respiratory Pattern Blood Pressure Blood Pressure Mean Blood Pressure Source Blood Pressure Position Blood Pressure Location Pulse Ox Oxygen Delivery Method Nasal Cannula Oxygen Flow Rate (L/min) Weight Weight: 72.938 kg Body Mass Index (BMI) 25.9 Physical Exam Const alert, oriented x3, no apparent distress and average body habitus Constitutional Narrative: Patient appears older than her stated age General Appearance: cooperative and well developed Orientation / Consciousness: awake, oriented to person, oriented to place and oriented to time HEENT normocephalic and moist oral mucous membranes Eyes PERRL, EOMs intact bilaterally and conjunctivae normal Neck supple, no JVD, thyroid normal and no carotid bruits General: trachea midline Resp normal respiratory effort, no retractions and no use of accessory muscles Resp Narrative: Breath sounds are diminished bilaterally more so on the right Auscultation: Negative for rales, rhonchi or wheezes Cardio regular rate, regular rhythm, S1 normal heart sound, S2 normal heart sound, no murmurs, no rub and no gallops GI normal to inspection, nondistended, normoactive bowel sounds, soft to palpation,non-tender and non-distended Extremity no clubbing, cyanosis or edema Skin no rashes or lesions noted General Skin Exam: no breakdown Neuro oriented x3, CN's II-XII intact bilaterally, moves all extremities, no focal motor deficits and no sensory deficits noted Sensorium / Orientation: awake, alert, oriented to person, oriented to place andoriented to time Speech: speech normal Psych affect normal Results Lab / Micro Data 01/01/23 13:50 01/01/23 13:50 Labs: Laboratory Results - last 24 hr 01/01/23 13:50: WBC 8.7, RBC 5.13, Hgb 14.0, Hct 43.2, MCV 84.2, MCH 27.3, MCHC 32.4, RDW Std Deviation 42.1, RDW Coeff of Spencer 13.7, Plt Count 201, MPV 9.5, Immature Gran % (Auto) 0.300, Neut % (Auto) 75.1 H, Lymph % (Auto) 16.1 L, [place] % (Auto) 5.0, Eos % (Auto) 2.7, Baso % (Auto) 0.8, Absolute Neuts (auto) 6.5, Absolute Lymphs (auto) 1.39, Nucleated RBC % 0, Sodium 136, Potassium 4.0, Chloride 104, Carbon Dioxide 27.0, Anion Gap 5, BUN 6 L, Creatinine 0.74, Estim Creat Clear Calc 84.20, Est GFR (MDRD) Af Amer 107, Est GFR (MDRD) Non-Af 88, BUN/Creatinine Ratio 8.2 L, Glucose 344 H, Calcium 8.7, Troponin I High Sens 10 01/01/23 16:34: Troponin I High Sens 12, B-Natriuretic Peptide 573.6 H Micro: Microbiology 01/01/23 15:12 Nasal Secretion SARS-CoV-2 & FLU Antigen (Rapid) - Final Radiology Impression Chest CTA 01/01/23 13:12 IMPRESSION: Small bilateral pleural effusions and small pericardial effusion. There is evidence of prominence of the interstitial markings in both lungs suggestive of a possible CHF. Electronically Signed: Ryan Tejeda MD at 15:28 EDT , Assessment & Plan Assessment/Plan (1) Chest pain: PLAN: Plan 1. Acute on chronic systolic congestive heart failure-patient will be admitted to PCU, she will be placed on IV Lasix, her medications will be reviewed and shewill be placed back on her medications. #2 noncompliance with medical regimen-I do not have a clear picture of why the patient chooses not to take her medications, she does not pay for her medications, she also does not follow-up with her physicians as directed, I spent some time talking to her about this and how hazardous it was to neglect her health. Patient seem to make a lot of excuses concerning why she does not answer the phone and follow-up as directed for her care. #3 cardiomyopathy, probably ischemic in nature-patient will need close follow- upwith a resume writer after her discharge from the hospital, I impressed upon her that she needs to follow through with this #4 pleurisy-etiology unclear at this point, I do not think the patient has an active infection such as a pneumonia at this time, I will administer Vicodin as needed for chest pain #5 type 2 diabetes-noncompliant with treatment-patient's blood sugars will be monitored, sliding scale insulin will be used as needed, again I am unsure exactly what medications she takes as an outpatient for her type 2 diabetes. #6 peripheral vascular disease-I will maintain the patient on Plavix and aspirin, she is supposed to be on Pletal but it appears that she is not taking it at this time #7 chronic depression-it does not appear that the patient is refilling her antidepressants as directed, I will encourage her to follow-up with counseling as an outpatient #8 coronary artery disease-patient has a history of coronary artery disease, according to medical records in the past at this hospital, patient was noted to have diffuse severe disease of her distal LAD in 2018-at that time it did not appear that she needed intervention. Patient will need close follow-up as an outpatient concerning this. #9 hyperlipidemia-patient will remain on Lipitor, it appears that she has not been taking this as an outpatient Total clinical time spent by myself addressing the patient's medical issues, reviewing all of her data, and collaborating with the patient's care team: 75 minutes Charges/Coding Visit Charges Inpatient E&M: 60589 Init Hosp L3 01/01/232127 <Electronically signed by Sabina Rosenberg DO> Cosigner Signature (if applicable): CC: Dr. Sabina Rosenberg, ; [facility]~ Signed [facility] Work Phone: [phone] Discharge summary Author Yvette Hanley [facility] January 01, 2023 4:35pm Note Date/Time January 01, 2023 1:15 pm [facility] Medical Records Department [address] [place] [address] Emergency Department Summary 01/01/23 MR#: [id number] Acct: [id number] Name: TRENTON JACKSON Rep #:[id number] : 1970 52 From: Yvette Hanley DO [facility] atus:[facility] ER Location: ED HPI History of Present Illness Chief Complaint: Cold Sx Detail of Chief Complaint: Chest pain Narrative Narrative: Patient presents to the emergency department complaint of chest pain since this morning. Patient states that she woke up coughing and subsequently developed severe pain in her chest that radiates through to her back. Patient states thatshe has been fighting off a cold for the last 2 to 3 days and has been taking [place] cold relief. Patient denies nausea or vomiting. At times brings up some clear phlegm. Denies fevers. Mild dyspnea. Pain worse with deep breath. Patient states that she thinks she has had heart attack but never had any stents placed or any type of intervention. 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 Currently not anticoagulated. 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 Patient also states that she has been having intermittent swelling and discomfort in her left leg from the knee down to the foot. [facility] Medical History CAD (coronary artery disease), rincon coronary artery CHF (congestive heart failure) GERD (gastroesophageal reflux disease) HTN (hypertension) Hx of fracture of humerus Hyperlipidemia Toe amputee Home Medications alendronate 70 mg tablet 70 mg PO [employer] 07/25/22 [History Last Taken Unknown] cholecalciferol (vitamin D3) 25 mcg (1,000 unit) tablet 1,000 unit PO DAILY 07/25/22 [History Last Taken Unknown] insulin glargine 100 unit/mL (3 mL) subcutaneous pen (Lantus Solostar U-100 Insulin) 10 units subcut BID 07/25/22 [History Last Taken Unknown] omeprazole 40 mg capsule,delayed release 40 mg PO DAILY #30 caps 07/25/22 [Rx Last Taken Unknown] dicyclomine 20 mg tablet 20 mg PO BID #14 tabs 08/03/22 [Rx Last Taken Unknown] atorvastatin 80 mg tablet 80 mg PO DAILY #90 tabs 08/09/22 [Rx Last Taken Unknown] calcium carbonate 500 mg calcium (1,250 mg) tablet 1 tablet PO DAILY 08/09/22 [History Last Taken Unknown] cilostazol 50 mg tablet 50 mg PO BID #60 tabs 08/09/22 [Rx Last Taken Unknown] clopidogrel 75 mg tablet (Plavix) 75 mg PO DAILY #30 tabs 08/09/22 [Rx Last Taken Unknown] desvenlafaxine succinate 25 mg tablet,extended release 24 hr 1 ea PO DAILY 08/09/22 [History Last Taken Unknown] glimepiride 4 mg tablet 1 tablet PO DAILY 08/09/22 [History Last Taken Unknown] trazodone 50 mg tablet 25 - 100 mg PO QHS PRN Insomnia 08/09/22 [History Last Taken Unknown] aspirin 81 mg capsule 81 mg PO DAILY 08/10/22 [History Last Taken 08/10/22] escitalopram oxalate 10 mg tablet 10 mg PO DAILY DEPRESSION 08/30/22 [History Last Taken Unknown] carvedilol 3.125 mg tablet 3.125 mg PO BID #60 tabs 09/02/22 [Rx Last Taken Unknown] lisinopril 10 mg tablet 10 mg PO DAILY #30 tabs 09/02/22 [Rx Last Taken Unknown] nicotine 21 mg/24 hr daily transdermal patch 21 mg transdermal DAILY #30 ea 09/02/22 [Rx Last Taken Unknown] ondansetron 4 mg disintegrating tablet 4 mg PO Q8H PRN PRN Nausea #10 tabs 09/10/22 [Rx Last Taken Unknown] ondansetron 4 mg disintegrating tablet 4 mg PO Q8H PRN PRN Nausea #10 tabs 09/11/22 [Rx Last Taken Unknown] ondansetron 4 mg disintegrating tablet 4 mg PO Q8H PRN PRN Nausea #10 tabs 09/18/22 [Rx Last Taken Unknown] Allergy/AdvReac Type Severity Reaction Status Date / Time latex Allergy Hives Verified 01/01/23 12:11 Family History Other Diabetes Heart disease Surgical History History of cholecystectomy Social History household members: spouse and children housing: house Smoking Status: Current every day smoker tobacco type: cigarettes alcohol intake: never what type of physical activity do you participate in: none do you feel safe at home: Yes ROS ROS ED Review of Systems ROS Unobtainable: other Constitutional Constitutional ED: Reports lethargy; Denies chills, fever(s), sweats or weight loss Eyes Eyes: Denies blurry vision, change in vision or diplopia ENT ENT ED: Denies rhinorrhea or sore throat Cardiovascular Cardiovascular: Reports chest pain; Denies orthopnea or racing heartbeat Respiratory/Chest Respiratory/Chest: Reports cough and dyspnea; Denies dyspnea on exertion, orthopnea or sputum Gastrointestinal Gastrointestinal: Denies abdominal pain, diarrhea, nausea or vomiting Genitourinary Genitourinary ED: Denies dysuria, hematuria or urinary frequency Musculoskeletal Musculoskeletal: Denies arthralgias, back pain, myalgias or neck pain Integumentary Denies abscess, Abrasions or rash Neurologic Neurologic: Denies headache(s) or weakness Psychiatric Psychiatric: Denies anxiety, depression or suicidal thoughts Endocrine Endocrinology: Denies polydipsia, polyphagia or polyuria Hematologic/Lymphatic Hematologic/Lymphatic: Denies easy bleeding, easy bruising or lymphadenopathy Allergic/Immunologic Allergic/Immunologic ED: Denies mouth swelling, tongue swelling or urticaria EXAM Physical Exam Const Vital Signs: 01/01/23 12:11 01/01/23 12:14 01/01/23 12:26 Temperature 98.2 F Temperature Source Oral Pulse Rate 112 H 106 H Respiratory Rate 18 14 Respiratory Effort Normal Non-Labored Respiratory Depth Normal Respiratory Pattern Normal Blood Pressure 152/96 H 130/87 H Blood Pressure Mean 114 101 Pulse Ox 97 96 Oxygen Delivery Method Room Air Room Air Oxygen Flow Rate (L/min) 01/01/23 13:46 01/01/23 14:10 01/01/23 14:10 Temperature Temperature Source Pulse Rate Respiratory Rate 22 H 18 Respiratory Effort Respiratory Depth Respiratory Pattern Blood Pressure Blood Pressure Mean Pulse Ox 85 95 Oxygen Delivery Method Room Air Room Air Nasal Cannula Oxygen Flow Rate (L/min) 2 01/01/23 14:29 01/01/23 14:29 01/01/23 15:15 Temperature Temperature Source Pulse Rate 104 H Respiratory Rate 20 H 18 20 H Respiratory Effort Respiratory Depth Respiratory Pattern Blood Pressure 128/89 H Blood Pressure Mean 102 Pulse Ox 85 92 85 Oxygen Delivery Method Nasal Cannula Nasal Cannula Nasal Cannula Oxygen Flow Rate (L/min) 2 5 5 01/01/23 15:16 Temperature Temperature Source Pulse Rate Respiratory Rate 20 H Respiratory Effort Respiratory Depth Respiratory Pattern Blood Pressure Blood Pressure Mean Pulse Ox 93 Oxygen Delivery Method Non-Rebreather Oxygen Flow Rate (L/min) 15 Positive well nourished and well developed General Appearance ED: well developed and NAD HEENT Reports TM's clear and moist mucous membranes normocephalic and atraumatic; Negative for trauma or tenderness Tympanic Membrane ED: Yes TM's clear Eyes PERRL and EOMs intact bilaterally General Eye ED: Negative for pale conjunctiva or scleral icterus Neck no lymphadenopathy, supple and no JVD General: Negative for tenderness Chest Wall inspection of chest normal and palpation of chest normal Chest: Negative for tenderness Resp normal respiratory effort and clear to auscultation bilaterally Effort and Inspection: Negative for respiratory distress or pain with movement Auscultation: Negative for rhonchi, wheezes or diminished lung sounds Cardio regular rate, regular rhythm, S1 normal heart sound, S2 normal heart sound and no murmurs Peripheral Pulses: pulses 2+ throughout GI normal to inspection, nondistended, normoactive bowel sounds, soft to palpation,non-tender, non-distended and no masses Back/Spine no CVA tenderness and no thoracic nor lumbar tenderness Extremity Extremity Narrative: Left leg-no significant edema. No cellulitic changes. 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 General Extremety ED: Negative for edema General Extremity: Negative for edema Neuro oriented x3, CN's II-XII intact bilaterally, no sensory deficits noted and gait normal Sensorium / Orientation: awake, alert, oriented to person, oriented to place andoriented to time Motor Exam: strength 5/5 throughout and strength abnormal Psych mental status grossly normal Skin no rashes or lesions noted and no wounds MDM MDM MDM Narrative Medical decision making narrative: Patient presents with retrosternal chest pain radiating through to her back thatis worse with breathing. She presented tachycardic. In the differential would be acute coronary syndrome versus PE versus pneumothorax versus pleurisy or pericarditis. IV established on arrival. Patient placed on a radiation monitor. EKG obtained on arrival showed sinus rhythm with a rate of 110 bpm with moderateLVH and old septal infarct. When compared with prior EKG no significant changesnoted. CBC with differential obtained showed a white count of 8.7 hemoglobin of14 and platelet count of 201. Chemistries unremarkable. Glucose elevated 344. Troponin normal at 10. I did perform a CTA of the chest with IV contrast to rule out PE and this was negative for PE or dissection. Patient had small bilateral pleural effusions and small pericardial effusion and there is evidenceof prominence of the interstitial markings in both lungs suggestive of possible CHF. COVID and flu testing was negative. Patient initially not hypoxic and didreceive 4 mg of morphine for pain. She subsequently developed hypoxemia and despite 5 L nasal cannula O2 she was still saturating in the 88% range. Patientwas not somnolent at any point and did not have any significant accessory muscleuse or retractions or significant tachypnea. I did place patient on a nonrebreather mask. I did give her Lasix 40 mg IV. Patient tells me she has nohistory of CHF and has not been gaining weight but rather has been losing some weight. I did order a BNP. Case will be discussed with hospitalist to evaluatepatient for admission for chest pain, dyspnea, hypoxemia and possible CHF. Lab Data Labs: Laboratory Results - last 24 hr 01/01/23 13:50 WBC 8.7 RBC 5.13 Hgb 14.0 Hct 43.2 MCV 84.2 MCH 27.3 MCHC 32.4 RDW Std Deviation 42.1 RDW Coeff of Spencer 13.7 Plt Count 201 MPV 9.5 Immature Gran % (Auto) 0.300 Neut % (Auto) 75.1 H Lymph % (Auto) 16.1 L [place] % (Auto) 5.0 Eos % (Auto) 2.7 Baso % (Auto) 0.8 Absolute Neuts (auto) 6.5 Absolute Lymphs (auto) 1.39 Nucleated RBC % 0 Sodium 136 Potassium 4.0 Chloride 104 Carbon Dioxide 27.0 Anion Gap 5 BUN 6 L Creatinine 0.74 Estim Creat Clear Calc 84.20 Est GFR (MDRD) Af Amer 107 Est GFR (MDRD) Non-Af 88 BUN/Creatinine Ratio 8.2 L Glucose 344 H Calcium 8.7 Troponin I High Sens 10 Radiography Diagnostic Testing: Clinical Impression(s) from Imaging Studies Chest CTA 01/01/23 13:12 IMPRESSION: Small bilateral pleural effusions and small pericardial effusion. There is evidence of prominence of the interstitial markings in both lungs suggestive of a possible CHF. Electronically Signed: Ryan Tejeda MD at 15:28 EDT , Discharge Plan Triage Chief Complaint: Cold Sx ED Provider: Yvette Hanley Dx/Rx/DC Orders Clinical Impression: Acute dyspnea, Hypoxemia, Pericardial effusion, Pleural effusion, Chest pain Prescriptions: No Action desvenlafaxine succinate 25 mg tablet extended release 24 hr 1 ea PO DAILY Patient Comments: TAKE 1 TABLET BY MOUTH DAILY FOR 5 DAYS, THEN INCREASE TO 2 (TWO) TABLETS DAILY trazodone 50 mg tablet 25 - 100 mg PO QHS PRN (Reason: Insomnia) glimepiride 4 mg tablet 1 tablet PO DAILY calcium carbonate 500 mg calcium (1,250 mg) tablet 1 tablet PO DAILY cilostazol 50 mg tablet 50 mg PO BID Qty: 60 2RF atorvastatin 80 mg tablet 80 mg PO DAILY Qty: 90 3RF clopidogrel [Plavix] 75 mg tablet 75 mg PO DAILY Qty: 30 2RF alendronate 70 mg tablet 70 mg PO WE Patient Comments: take one tablet weekly HAS ONLY TAKEN 1X SINCE RX'D cholecalciferol (vitamin D3) 25 mcg (1,000 unit) tablet 1,000 unit PO DAILY Patient Comments: TAKE 1 TABLET DAILY insulin glargine [Lantus Solostar U-100 Insulin] 100 unit/mL (3 mL) insulin pen 10 units subcut BID omeprazole 40 mg capsule,delayed release(DR/EC) 40 mg PO DAILY Qty: 30 0RF dicyclomine 20 mg tablet 20 mg PO BID Qty: 14 0RF aspirin 81 mg Capsule 81 mg PO DAILY escitalopram oxalate 10 mg Tablet 10 mg PO DAILY Patient Comments: HAS NOT REFILLED SINCE 04/25, BUT STATES SHE TAKES DAILY carvedilol 3.125 mg Tablet 3.125 mg PO BID Qty: 60 0RF lisinopril 10 mg Tablet 10 mg PO DAILY Qty: 30 0RF nicotine 21 mg/24 hr Patch 24 Hour 21 mg transdermal DAILY Qty: 30 0RF ondansetron 4 mg tablet,disintegrating 4 mg PO Q8H PRN PRN (Reason: Nausea) Qty: 10 0RF ondansetron [ondansetron] 4 mg tablet,disintegrating 4 mg PO Q8H PRN PRN (Reason: Nausea) Qty: 10 0RF ondansetron [ondansetron] 4 mg tablet,disintegrating 4 mg PO Q8H PRN PRN (Reason: Nausea) Qty: 10 0RF Primary Care Provider: [facility] Nathaly Finney Referrals: [facility],Nathaly Lainez [Primary Care Provider] - Disposition Disposition: Acute Care Hospital [facility] What to do if you have Problems For any increased pain, shortness of breath, bleeding, nausea or vomiting, chestpain, or any unexpected problems, contact your Primary Care Provider. Call [facility] ([phone]) or report to the closest Emergency Room. Call 911 if necessary. 01/01/23 1635 <Electronically signed by Yvette Hanley DO> Cosigner Signature (if applicable): CC: [facility] ~ Signed [facility] Work Phone: [phone]) 711-613007-31-2023 Discharge summary Author [facility] January 01, 2023 4:35pm Note Date/Time January 01, 2023 1:15 pm [facility] Medical Records Department [address] [place] [address] Emergency Department Summary 01/01/23 MR#: [id number] Acct: [id number] Name: TRENTON JACKSON Rep #:[id number] : 1970 52 From: Yvette Hanley DO PCP: [facility] St atus:REG ER Location: ED HPI History of Present Illness Chief Complaint: Cold Sx Detail of Chief Complaint: Chest pain Narrative Narrative: Patient presents to the emergency department complaint of chest pain since this morning. Patient states that she woke up coughing and subsequently developed severe pain in her chest that radiates through to her back. Patient states thatshe has been fighting off a cold for the last 2 to 3 days and has been taking [place] cold relief. Patient denies nausea or vomiting. At times brings up some clear phlegm. Denies fevers. Mild dyspnea. Pain worse with deep breath. Patient states that she thinks she has had heart attack but never had any stents placed or any type of intervention. 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 Currently not anticoagulated. 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 Patient also states that she has been having intermittent swelling and discomfort in her left leg from the knee down to the foot. [facility] Medical History CAD (coronary artery disease), rincon coronary artery CHF (congestive heart failure) GERD (gastroesophageal reflux disease) HTN (hypertension) Hx of fracture of humerus Hyperlipidemia Toe amputee Home Medications alendronate 70 mg tablet 70 mg PO [facility] 07/25/22 [History Last Taken Unknown] cholecalciferol (vitamin D3) 25 mcg (1,000 unit) tablet 1,000 unit PO DAILY 07/25/22 [History Last Taken Unknown] insulin glargine 100 unit/mL (3 mL) subcutaneous pen (Lantus Solostar U-100 Insulin) 10 units subcut BID 07/25/22 [History Last Taken Unknown] omeprazole 40 mg capsule,delayed release 40 mg PO DAILY #30 caps 07/25/22 [Rx Last Taken Unknown] dicyclomine 20 mg tablet 20 mg PO BID #14 tabs 08/03/22 [Rx Last Taken Unknown] atorvastatin 80 mg tablet 80 mg PO DAILY #90 tabs 08/09/22 [Rx Last Taken Unknown] calcium carbonate 500 mg calcium (1,250 mg) tablet 1 tablet PO DAILY 08/09/22 [History Last Taken Unknown] cilostazol 50 mg tablet 50 mg PO BID #60 tabs 08/09/22 [Rx Last Taken Unknown] clopidogrel 75 mg tablet (Plavix) 75 mg PO DAILY #30 tabs 08/09/22 [Rx Last Taken Unknown] desvenlafaxine succinate 25 mg tablet,extended release 24 hr 1 ea PO DAILY 08/09/22 [History Last Taken Unknown] glimepiride 4 mg tablet 1 tablet PO DAILY 08/09/22 [History Last Taken Unknown] trazodone 50 mg tablet 25 - 100 mg PO QHS PRN Insomnia 08/09/22 [History Last Taken Unknown] aspirin 81 mg capsule 81 mg PO DAILY 08/10/22 [History Last Taken 08/10/22] escitalopram oxalate 10 mg tablet 10 mg PO DAILY DEPRESSION 08/30/22 [History Last Taken Unknown] carvedilol 3.125 mg tablet 3.125 mg PO BID #60 tabs 09/02/22 [Rx Last Taken Unknown] lisinopril 10 mg tablet 10 mg PO DAILY #30 tabs 09/02/22 [Rx Last Taken Unknown] nicotine 21 mg/24 hr daily transdermal patch 21 mg transdermal DAILY #30 ea 09/02/22 [Rx Last Taken Unknown] ondansetron 4 mg disintegrating tablet 4 mg PO Q8H PRN PRN Nausea #10 tabs 09/10/22 [Rx Last Taken Unknown] ondansetron 4 mg disintegrating tablet 4 mg PO Q8H PRN PRN Nausea #10 tabs 09/11/22 [Rx Last Taken Unknown] ondansetron 4 mg disintegrating tablet 4 mg PO Q8H PRN PRN Nausea #10 tabs 09/18/22 [Rx Last Taken Unknown] Allergy/AdvReac Type Severity Reaction Status Date / Time latex Allergy Hives Verified 01/01/23 12:11 Family History Other Diabetes Heart disease Surgical History History of cholecystectomy Social History household members: spouse and children housing: house Smoking Status: Current every day smoker tobacco type: cigarettes alcohol intake: never what type of physical activity do you participate in: none do you feel safe at home: Yes ROS ROS ED Review of Systems ROS Unobtainable: other Constitutional Constitutional ED: Reports lethargy; Denies chills, fever(s), sweats or weight loss Eyes Eyes: Denies blurry vision, change in vision or diplopia ENT ENT ED: Denies rhinorrhea or sore throat Cardiovascular Cardiovascular: Reports chest pain; Denies orthopnea or racing heartbeat Respiratory/Chest Respiratory/Chest: Reports cough and dyspnea; Denies dyspnea on exertion, orthopnea or sputum Gastrointestinal Gastrointestinal: Denies abdominal pain, diarrhea, nausea or vomiting Genitourinary Genitourinary ED: Denies dysuria, hematuria or urinary frequency Musculoskeletal Musculoskeletal: Denies arthralgias, back pain, myalgias or neck pain Integumentary Denies abscess, Abrasions or rash Neurologic Neurologic: Denies headache(s) or weakness Psychiatric Psychiatric: Denies anxiety, depression or suicidal thoughts Endocrine Endocrinology: Denies polydipsia, polyphagia or polyuria Hematologic/Lymphatic Hematologic/Lymphatic: Denies easy bleeding, easy bruising or lymphadenopathy Allergic/Immunologic Allergic/Immunologic ED: Denies mouth swelling, tongue swelling or urticaria EXAM Physical Exam Const Vital Signs: 01/01/23 12:11 01/01/23 12:14 01/01/23 12:26 Temperature 98.2 F Temperature Source Oral Pulse Rate 112 H 106 H Respiratory Rate 18 14 Respiratory Effort Normal Non-Labored Respiratory Depth Normal Respiratory Pattern Normal Blood Pressure 152/96 H 130/87 H Blood Pressure Mean 114 101 Pulse Ox 97 96 Oxygen Delivery Method Room Air Room Air Oxygen Flow Rate (L/min) 01/01/23 13:46 01/01/23 14:10 01/01/23 14:10 Temperature Temperature Source Pulse Rate Respiratory Rate 22 H 18 Respiratory Effort Respiratory Depth Respiratory Pattern Blood Pressure Blood Pressure Mean Pulse Ox 85 95 Oxygen Delivery Method Room Air Room Air Nasal Cannula Oxygen Flow Rate (L/min) 2 01/01/23 14:29 01/01/23 14:29 01/01/23 15:15 Temperature Temperature Source Pulse Rate 104 H Respiratory Rate 20 H 18 20 H Respiratory Effort Respiratory Depth Respiratory Pattern Blood Pressure 128/89 H Blood Pressure Mean 102 Pulse Ox 85 92 85 Oxygen Delivery Method Nasal Cannula Nasal Cannula Nasal Cannula Oxygen Flow Rate (L/min) 2 5 5 01/01/23 15:16 Temperature Temperature Source Pulse Rate Respiratory Rate 20 H Respiratory Effort Respiratory Depth Respiratory Pattern Blood Pressure Blood Pressure Mean Pulse Ox 93 Oxygen Delivery Method Non-Rebreather Oxygen Flow Rate (L/min) 15 Positive well nourished and well developed General Appearance ED: well developed and NAD HEENT Reports TM's clear and moist mucous membranes normocephalic and atraumatic; Negative for trauma or tenderness Tympanic Membrane ED: Yes TM's clear Eyes PERRL and EOMs intact bilaterally General Eye ED: Negative for pale conjunctiva or scleral icterus Neck no lymphadenopathy, supple and no JVD General: Negative for tenderness Chest Wall inspection of chest normal and palpation of chest normal Chest: Negative for tenderness Resp normal respiratory effort and clear to auscultation bilaterally Effort and Inspection: Negative for respiratory distress or pain with movement Auscultation: Negative for rhonchi, wheezes or diminished lung sounds Cardio regular rate, regular rhythm, S1 normal heart sound, S2 normal heart sound and no murmurs Peripheral Pulses: pulses 2+ throughout GI normal to inspection, nondistended, normoactive bowel sounds, soft to palpation,non-tender, non-distended and no masses Back/Spine no CVA tenderness and no thoracic nor lumbar tenderness Extremity Extremity Narrative: Left leg-no significant edema. No cellulitic changes. 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 General Extremety ED: Negative for edema General Extremity: Negative for edema Neuro oriented x3, CN's II-XII intact bilaterally, no sensory deficits noted and gait normal Sensorium / Orientation: awake, alert, oriented to person, oriented to place andoriented to time Motor Exam: strength 5/5 throughout and strength abnormal Psych mental status grossly normal Skin no rashes or lesions noted and no wounds MDM MDM MDM Narrative Medical decision making narrative: Patient presents with retrosternal chest pain radiating through to her back thatis worse with breathing. She presented tachycardic. In the differential would be acute coronary syndrome versus PE versus pneumothorax versus pleurisy or pericarditis. IV established on arrival. Patient placed on a radiation monitor. EKG obtained on arrival showed sinus rhythm with a rate of 110 bpm with moderateLVH and old septal infarct. When compared with prior EKG no significant changesnoted. CBC with differential obtained showed a white count of 8.7 hemoglobin of14 and platelet count of 201. Chemistries unremarkable. Glucose elevated 344. Troponin normal at 10. I did perform a CTA of the chest with IV contrast to rule out PE and this was negative for PE or dissection. Patient had small bilateral pleural effusions and small pericardial effusion and there is evidenceof prominence of the interstitial markings in both lungs suggestive of possible CHF. COVID and flu testing was negative. Patient initially not hypoxic and didreceive 4 mg of morphine for pain. She subsequently developed hypoxemia and despite 5 L nasal cannula O2 she was still saturating in the 88% range. Patientwas not somnolent at any point and did not have any significant accessory muscleuse or retractions or significant tachypnea. I did place patient on a nonrebreather mask. I did give her Lasix 40 mg IV. Patient tells me she has nohistory of CHF and has not been gaining weight but rather has been losing some weight. I did order a BNP. Case will be discussed with hospitalist to evaluatepatient for admission for chest pain, dyspnea, hypoxemia and possible CHF. Lab Data Labs: Laboratory Results - last 24 hr 01/01/23 13:50 WBC 8.7 RBC 5.13 Hgb 14.0 Hct 43.2 MCV 84.2 MCH 27.3 MCHC 32.4 RDW Std Deviation 42.1 RDW Coeff of [place] 13.7 Plt Count 201 MPV 9.5 Immature Gran % (Auto) 0.300 Neut % (Auto) 75.1 H Lymph % (Auto) 16.1 L [place] % (Auto) 5.0 Eos % (Auto) 2.7 Baso % (Auto) 0.8 Absolute Neuts (auto) 6.5 Absolute Lymphs (auto) 1.39 Nucleated RBC % 0 Sodium 136 Potassium 4.0 Chloride 104 Carbon Dioxide 27.0 Anion Gap 5 BUN 6 L Creatinine 0.74 Estim Creat Clear Calc 84.20 Est GFR (MDRD) Af Amer 107 Est GFR (MDRD) Non-Af 88 BUN/Creatinine Ratio 8.2 L Glucose 344 H Calcium 8.7 Troponin I High Sens 10 Radiography Diagnostic Testing: Clinical Impression(s) from Imaging Studies Chest CTA 01/01/23 13:12 IMPRESSION: Small bilateral pleural effusions and small pericardial effusion. There is evidence of prominence of the interstitial markings in both lungs suggestive of a possible CHF. Electronically Signed: Ryan Tejeda MD at 15:28 EDT , Discharge Plan Triage Chief Complaint: Cold Sx ED Provider: Yvette Hanley Dx/Rx/DC Orders Clinical Impression: Acute dyspnea, Hypoxemia, Pericardial effusion, Pleural effusion, Chest pain Prescriptions: No Action desvenlafaxine succinate 25 mg tablet extended release 24 hr 1 ea PO DAILY Patient Comments: TAKE 1 TABLET BY MOUTH DAILY FOR 5 DAYS, THEN INCREASE TO 2 (TWO) TABLETS DAILY trazodone 50 mg tablet 25 - 100 mg PO QHS PRN (Reason: Insomnia) glimepiride 4 mg tablet 1 tablet PO DAILY calcium carbonate 500 mg calcium (1,250 mg) tablet 1 tablet PO DAILY cilostazol 50 mg tablet 50 mg PO BID Qty: 60 2RF atorvastatin 80 mg tablet 80 mg PO DAILY Qty: 90 3RF clopidogrel [Plavix] 75 mg tablet 75 mg PO DAILY Qty: 30 2RF alendronate 70 mg tablet 70 mg PO WE Patient Comments: take one tablet weekly HAS ONLY TAKEN 1X SINCE RX'D cholecalciferol (vitamin D3) 25 mcg (1,000 unit) tablet 1,000 unit PO DAILY Patient Comments: TAKE 1 TABLET DAILY insulin glargine [Lantus Solostar U-100 Insulin] 100 unit/mL (3 mL) insulin pen 10 units subcut BID omeprazole 40 mg capsule,delayed release(DR/EC) 40 mg PO DAILY Qty: 30 0RF dicyclomine 20 mg tablet 20 mg PO BID Qty: 14 0RF aspirin 81 mg Capsule 81 mg PO DAILY escitalopram oxalate 10 mg Tablet 10 mg PO DAILY Patient Comments: HAS NOT REFILLED SINCE 04/25, BUT STATES SHE TAKES DAILY carvedilol 3.125 mg Tablet 3.125 mg PO BID Qty: 60 0RF lisinopril 10 mg Tablet 10 mg PO DAILY Qty: 30 0RF nicotine 21 mg/24 hr Patch 24 Hour 21 mg transdermal DAILY Qty: 30 0RF ondansetron 4 mg tablet,disintegrating 4 mg PO Q8H PRN PRN (Reason: Nausea) Qty: 10 0RF ondansetron [ondansetron] 4 mg tablet,disintegrating 4 mg PO Q8H PRN PRN (Reason: Nausea) Qty: 10 0RF ondansetron [ondansetron] 4 mg tablet,disintegrating 4 mg PO Q8H PRN PRN (Reason: Nausea) Qty: 10 0RF Primary Care [facility]: [facility] Fin[facility] - Disposition Disposition: Acute Care Hospital [facility] What to do if you have Problems For any increased pain, shortness of breath, bleeding, nausea or vomiting, chestpain, or any unexpected problems, contact your Primary Care Provider. Call [facility] ([phone]) or report to the closest Emergency Room. Call 911 if necessary. 01/01/23 9052 <Electronically signed by Yvette Hanley DO> Cosigner Signature (if applicable): CC: [facility] ~ Signed [facility] Work Phone: [phone] 777-653806-26-2023 Hospital Discharge instructions Additional Instructions Plenty of fluids such as water, prune juice and fruits, vegetables and fiber to help with constipation. GoLytely: Drink 6 to 8 ounce is every hour as needed and to have a bowel movement.[facility] Work Phone: [phone]) 783-492704-30-2023 Hospital Discharge instructions Additional Instructions Plenty of fluids such as water, prune juice and fruits, vegetables and fiber to help with constipation. GoLytely: Drink 6 to 8 ounce is every hour as needed and to have a bowel movement.[facility] Work Phone: [phone] 406-531404-17-[address] [facility] September 18, 2022 6:48pm Note Date/Time September 18, 2022 2:3 5pm [facility] Medical Records Department [address] [place] [address] Emergency Department Summary 09/18/22 MR#: [id number] Acct: [id number] Name: TRENTON JACKSON Rep #:[id number] : 1970 52 From: Zack Han PCP: [facility] St atus:REG ER Location: ED HPI History of Present Illness Chief Complaint: Nausea/Vomiting Informant: patient Narrative Narrative: Dents increasing nausea and vomiting no hematemesis since this morning. Has been having diarrhea now had recent constipation using milk of magnesia. Statessymptoms occurring since her angioplasty of right leg with stent placed at. Records this is back on August [address] Ng. She had right toe amputation August [address] Forde. She has been seen multiple recently for nausea vomiting and constipation. Last visit [address] scan with constipation concerning from opiate use. Still use milk of magnesia. She denies hematemesisor any bloody stools. Denies fevers. Prior similar symptoms: Yes PFSH PFSH Medical History CAD (coronary artery disease), rincon coronary artery CHF (congestive heart failure) GERD (gastroesophageal reflux disease) HTN (hypertension) Hx of fracture of humerus Hyperlipidemia Toe amputee Home Medications alendronate 70 mg tablet 70 mg PO [facility] 07/25/22 [History Last Taken Unknown] cholecalciferol (vitamin D3) 25 mcg (1,000 unit) tablet 1,000 unit PO DAILY 07/25/22 [History Last Taken Unknown] insulin glargine 100 unit/mL (3 mL) subcutaneous pen (Lantus Solostar U-100 Insulin) 10 units subcut BID 07/25/22 [History Last Taken Unknown] omeprazole 40 mg capsule,delayed release 40 mg PO DAILY #30 caps 07/25/22 [Rx Last Taken Unknown] dicyclomine 20 mg tablet 20 mg PO BID #14 tabs 08/03/22 [Rx Last Taken Unknown] atorvastatin 80 mg tablet 80 mg PO DAILY #90 tabs 08/09/22 [Rx Last Taken Unknown] calcium carbonate 500 mg calcium (1,250 mg) tablet 1 tablet PO DAILY 08/09/22 [History Last Taken Unknown] cilostazol 50 mg tablet 50 mg PO BID #60 tabs 08/09/22 [Rx Last Taken Unknown] clopidogrel 75 mg tablet (Plavix) 75 mg PO DAILY #30 tabs 08/09/22 [Rx Last Taken Unknown] desvenlafaxine succinate 25 mg tablet,extended release 24 hr 1 ea PO DAILY 08/09/22 [History Last Taken Unknown] glimepiride 4 mg tablet 1 tablet PO DAILY 08/09/22 [History Last Taken Unknown] trazodone 50 mg tablet 25 - 100 mg PO QHS PRN Insomnia 08/09/22 [History Last Taken Unknown] aspirin 81 mg capsule 81 mg PO DAILY 08/10/22 [History Last Taken 08/10/22] gabapentin 300 mg capsule (Neurontin) 300 mg PO TID #30 caps 08/14/22 [Rx Last Taken Unknown] escitalopram oxalate 10 mg tablet 10 mg PO DAILY DEPRESSION 08/30/22 [History Last Taken Unknown] amoxicillin 875 mg-potassium clavulanate 125 mg tablet 1 tab PO BID #15 tabs 09/02/22 [Rx Last Taken Unknown] carvedilol 3.125 mg tablet 3.125 mg PO BID #60 tabs 09/02/22 [Rx Last Taken Unknown] lisinopril 10 mg tablet 10 mg PO DAILY #30 tabs 09/02/22 [Rx Last Taken Unknown] nicotine 21 mg/24 hr daily transdermal patch 21 mg transdermal DAILY #30 ea 09/02/22 [Rx Last Taken Unknown] oxycodone 5 mg tablet 5 - 10 mg PO Q6H PRN Pain (Scale Score 7-10) 5 days #30 tabs 09/02/22 [Rx Last Taken Unknown] oxycodone-acetaminophen 5 mg-325 mg tablet 1 tab PO Q6H PRN PRN Pain 3 days #12 TABLETS 09/05/22 [Rx Last Taken Unknown] oxycodone-acetaminophen 5 mg-325 mg tablet 1 tab PO Q6H PRN PRN Pain 3 days #12 TABLETS 09/05/22 [Rx Last Taken Unknown] ondansetron 4 mg disintegrating tablet 4 mg PO Q8H PRN PRN Nausea #10 tabs 09/10/22 [Rx Last Taken Unknown] oxycodone-acetaminophen 5 mg-325 mg tablet (Percocet) 1 tab PO Q8H PRN pain 3 days #10 tabs 09/10/22 [Rx Last Taken Unknown] ondansetron 4 mg disintegrating tablet 4 mg PO Q8H PRN PRN Nausea #10 tabs 09/11/22 [Rx Last Taken Unknown] promethazine 25 mg tablet 25 mg PO Q6H PRN PRN Nausea #10 TABLETS 09/11/22 [Rx Last Taken Unknown] ondansetron 4 mg disintegrating tablet 4 mg PO Q8H PRN PRN Nausea #10 tabs 09/18/22 [Rx Last Taken Unknown] oxycodone-acetaminophen 5 mg-325 mg tablet (Percocet) 1 tab PO Q8H PRN pain 4 days #10 tabs 09/18/22 [Rx Last Taken Unknown] Allergy/AdvReac Type Severity Reaction Status Date / Time latex Allergy Hives Verified 09/18/22 14:15 Family History Other Diabetes Heart disease Surgical History History of cholecystectomy Social History household members: spouse and children housing: house Smoking Status: Current every day smoker tobacco type: cigarettes alcohol intake: never what type of physical activity do you participate in: none do you feel safe at home: Yes ROS ROS ED Constitutional Constitutional ED: Denies chills, fever(s) or sweats Eyes Eyes: Denies change in vision ENT ENT ED: Denies dysphagia or sore throat Cardiovascular Cardiovascular: Denies chest pain, leg edema, palpitations or racing heartbeat Respiratory/Chest Respiratory/Chest: Denies cough, dyspnea or dyspnea on exertion Gastrointestinal Gastrointestinal: Reports abdominal pain, diarrhea, nausea and vomiting Genitourinary Genitourinary ED: Denies dysuria, hematuria or urinary frequency Musculoskeletal Musculoskeletal: Denies back pain, extremity pain or neck pain Integumentary Denies rash or wounds Neurologic Neurologic: Denies headache(s), paresthesias or weakness EXAM Physical Exam Const Vital Signs: 09/18/22 14:13 Temperature 97.6 F L Temperature Source Temporal Pulse Rate 109 H Respiratory Rate 16 Blood Pressure 127/92 H Blood Pressure Mean 103 Pulse Ox 99 Oxygen Delivery Method Room Air Positive well nourished and well developed General Appearance ED: well developed and NAD HEENT Reports dry mucous membranes HEENT Narrative: Mild dry mucosal membranes normocephalic and atraumatic Mouth ED: Yes dry mucous membranes Mouth: dry mucous membranes Eyes PERRL, EOMs intact bilaterally and conjunctivae normal General Eye ED: Yes normal appearance of both eyes Neck no lymphadenopathy and supple General: Negative for tenderness Chest Wall Chest: Negative for tenderness Resp normal respiratory effort and normal air movement Effort and Inspection: symmetric chest movement; Negative for respiratory distress Cardio regular rhythm and no murmurs Rate: tachycardic Peripheral Pulses: pulses 2+ throughout GI normal to inspection, nondistended, normoactive bowel sounds GI Narrative: General lysed tenderness there is no guarding or rebound. Negative Jimenez's McBurney's tenderness. Palpation: Negative for guarding or rebound tenderness present Back/Spine no CVA tenderness and no thoracic nor lumbar tenderness Extremity normal to inspection General Extremety ED: Negative for edema or tenderness General Extremity: Negative for edema Neuro oriented x3 and no sensory deficits noted Sensorium / Orientation: awake and alert Skin no rashes or lesions noted and no wounds MDM MDM MDM Narrative Medical decision making narrative: Interventions / MDM: Differential diagnosis: Nausea and vomiting, dehydration, nonspecific abdominal pain, right hip fracture, right hip contusion Diagnosis considered but do not suspect: Groin pseudoaneurysm or abscess, but denies pain in the groin area. Bowel obstruction however she is having loose stools since her constipation with bowel movements. My EKG interpretation: N/A Imaging independently reviewed and interpreted by myself: Right hip x-ray 3 views: No fracture or dislocation External documents reviewed: Multiple ER visits previously for her foot pain. Her last opiate prescription was 8 days ago for 3 days. Test considered but not ordered:N/A ED course: Patient nonsurgical abdomen and reported vomiting with no hematemesis. She is ordered for labs fluids and antiemetics with Levsin however reported nursing she is drinking fluids prior to medicines given. Labs are stable sodium 132 she has been this low previously, last night because her vomiting symptoms are creatinine 0.9 pain.. White count 9.5 hemoglobin 17. Lipase and liver enzymes normal. Reevaluation complaining of right hip pain andnot abdomen, she denies history of gastric ulcers. Toradol was given. Glucose 425, normal anion gap. Review of records she has had persistent elevated glucose high 300s. She is on Lantus and glipizide no other diabetic medications. She states managed by her PCP team. She is given 10 units of insulin. Re-evaluation: Glucose down to 285. Reported persistent right hip pain further discussion she had a mechanical fall after leaving the hospital 2 weeks ago. Evaluation her records from multiple visits of foot pain, there is no discussionof this. I will send her for image studies for her hip. She is noted to be ambulating in the department. She would like stronger medications, oxycodone weordered. 1840: X-ray negative. Patient was ambulated in the department. Abdomen soft onreevaluation. Short prescription for oxycodone as there is no overlap on her OARRS. She understands constipation risks she states she is on stool softeners. Refills by her PCP. Refill of Zofran for home. She is tolerating oral intake in the ED. Disposition discussed with patient/family/significant other: Patient and family Case discussed with consulting clinician: N/A Lab Data Attestation: I reviewed the patient's lab results. Labs: Laboratory Results - last 24 hr 09/18/22 09/18/22 09/18/22 14:23 14:23 15:00 WBC 9.5 RBC 6.20 H Hgb 17.0 H Hct 51.3 H MCV 82.7 MCH 27.4 MCHC 33.1 RDW Std Deviation 38.1 RDW Coeff of Spencer 12.7 Plt Count 268 MPV 9.4 Immature Gran % (Auto) 0.400 Neut % (Auto) 74.8 H Lymph % (Auto) 18.4 L Erie % (Auto) 5.3 Eos % (Auto) 0.7 Baso % (Auto) 0.4 Absolute Neuts (auto) 7.1 Absolute Lymphs (auto) 1.74 Nucleated RBC % 0 Sodium Cancelled 132 L Potassium Cancelled 4.7 Chloride Cancelled 100 Carbon Dioxide Cancelled 30.0 Anion Gap Cancelled 2 L BUN Cancelled 18 Creatinine Cancelled 0.99 Estim Creat Clear Calc Cancelled 62.94 Est GFR (MDRD) Af Amer Cancelled 76 Est GFR (MDRD) Non-Af Cancelled 63 BUN/Creatinine Ratio Cancelled 18.2 Glucose Cancelled 425 H Calcium Cancelled 9.0 Total Bilirubin Cancelled 0.70 Direct Bilirubin Cancelled 0.18 AST Cancelled 14 L ALT Cancelled 19 Alkaline Phosphatase Cancelled 111 Total Protein Cancelled 6.7 Albumin Cancelled 2.8 L Globulin Cancelled 3.9 Albumin/Globulin Ratio Cancelled 0.7 L Lipase POC Glucose 09/18/22 09/18/22 15:00 17:30 WBC RBC Hgb Hct MCV MCH MCHC RDW Std Deviation RDW Coeff of Spencer Plt Count MPV Immature Gran % (Auto) Neut % (Auto) Lymph % (Auto) Erie % (Auto) Eos % (Auto) Baso % (Auto) Absolute Neuts (auto) Absolute Lymphs (auto) Nucleated RBC % Sodium Potassium Chloride Carbon Dioxide Anion Gap BUN Creatinine Estim Creat Clear Calc Est GFR (MDRD) Af Amer Est GFR (MDRD) Non-Af BUN/Creatinine Ratio Glucose Calcium Total Bilirubin Direct Bilirubin AST ALT Alkaline Phosphatase Total Protein Albumin Globulin Albumin/Globulin Ratio Lipase 27 POC Glucose 281 H Radiography Diagnostic Testing: Clinical Impression(s) from Imaging Studies Hip/Pelvis X-Ray 09/18/22 18:20 IMPRESSION: No evidence for acute hip or pelvic fracture If pain persists MRI recommended for further evaluation Electronically Signed: Torito Campos MD at 18:41 EDT Reading Location ID and State: / [place] , Service support , Discharge Plan Triage Chief Complaint: Nausea/Vomiting ED Provider: Zack Card Dx/Rx/DC Orders Clinical Impression: Hyperglycemia, Nausea & vomiting, Hyponatremia, Abdominal pain, Hip pain, right Instructions: Abdominal Pain, ED Diabetic Hyperglycemia, ED Hip Contusion, ED Hyponatremia, ED Vomiting (Adult) Prescriptions: New oxycodone-acetaminophen [Percocet] 5-325 mg tablet 1 tab PO Q8H PRN (Reason: pain) 4 Days Qty: 10 0RF ondansetron [ondansetron] 4 mg tablet,disintegrating 4 mg PO Q8H PRN PRN (Reason: Nausea) Qty: 10 0RF No Action desvenlafaxine succinate 25 mg tablet extended release 24 hr 1 ea PO DAILY Label Comments: TAKE 1 TABLET BY MOUTH DAILY FOR 5 DAYS, THEN INCREASE TO 2 (TWO) TABLETS DAILY trazodone 50 mg tablet 25 - 100 mg PO QHS PRN (Reason: Insomnia) glimepiride 4 mg tablet 1 tablet PO DAILY calcium carbonate 500 mg calcium (1,250 mg) tablet 1 tablet PO DAILY cilostazol 50 mg tablet 50 mg PO BID Qty: 60 2RF atorvastatin 80 mg tablet 80 mg PO DAILY Qty: 90 3RF clopidogrel [Plavix] 75 mg tablet 75 mg PO DAILY Qty: 30 2RF alendronate 70 mg tablet 70 mg PO WE Label Comments: take one tablet weekly HAS ONLY TAKEN 1X SINCE RX'D cholecalciferol (vitamin D3) 25 mcg (1,000 unit) tablet 1,000 unit PO DAILY Label Comments: TAKE 1 TABLET DAILY insulin glargine [Lantus Solostar U-100 Insulin] 100 unit/mL (3 mL) insulin pen 10 units subcut BID omeprazole 40 mg capsule,delayed release(DR/EC) 40 mg PO DAILY Qty: 30 0RF dicyclomine 20 mg tablet 20 mg PO BID Qty: 14 0RF aspirin 81 mg Capsule 81 mg PO DAILY gabapentin [Neurontin] 300 mg capsule 300 mg PO TID Qty: 30 0RF escitalopram oxalate 10 mg Tablet 10 mg PO DAILY Label Comments: HAS NOT REFILLED SINCE 04/25, BUT STATES SHE TAKES DAILY carvedilol 3.125 mg Tablet 3.125 mg PO BID Qty: 60 0RF lisinopril 10 mg Tablet 10 mg PO DAILY Qty: 30 0RF nicotine 21 mg/24 hr Patch 24 Hour 21 mg transdermal DAILY Qty: 30 0RF oxycodone 5 mg Tablet 5 - 10 mg PO Q6H PRN (Reason: Pain (Scale Score 7-10)) 5 Days Qty: 30 0RF Rx Instructions: may take with 650 mg Tylenol four times a day amoxicillin-pot clavulanate 875-125 mg tablet 1 tab PO BID Qty: 15 0RF Rx Instructions: take with food, start with dinner tonite oxycodone-acetaminophen [oxycodone-acetaminophen] 5-325 mg tablet 1 tab PO Q6H PRN PRN (Reason: Pain) 3 Days Qty: 12 0RF oxycodone-acetaminophen [oxycodone-acetaminophen] 5-325 mg tablet 1 tab PO Q6H PRN PRN (Reason: Pain) 3 Days Qty: 12 0RF ondansetron 4 mg tablet,disintegrating 4 mg PO Q8H PRN PRN (Reason: Nausea) Qty: 10 0RF oxycodone-acetaminophen [Percocet] 5-325 mg tablet 1 tab PO Q8H PRN (Reason: pain) 3 Days Qty: 10 0RF promethazine [promethazine] 25 mg tablet 25 mg PO Q6H PRN PRN (Reason: Nausea) Qty: 10 0RF ondansetron [ondansetron] 4 mg tablet,disintegrating 4 mg PO Q8H PRN PRN (Reason: Nausea) Qty: 10 0RF [facility] - 3-5 Days Activity Restrictions/Additional Instructions: Hip x-ray negative. Labs are stable. Follow-up with your doctor. Disposition Disposition: Home, Self Care What to do if you have Problems For any increased pain, shortness of breath, bleeding, nausea or vomiting, chestpain, or any unexpected problems, contact your Primary Care Provider. Call [facility] ([phone]) or report to the closest Emergency Room. Call 911 if necessary. 04/1847 <Electronically signed by Zack Han> Cosigner Signature (if applicable): CC: [facility] ~ Signed [facility] Work Phone: 1(726) 629-815504-01-[address] Forde [facility] September 02, 2022 11:17am Note Date/Time September 02, 2022 11:1 7am [facility] Medical Records Department [address] [place] [address] Discharge Summary 09/02/22 1115 MR#: [id number] Acct: [id number] Name: TRENTON JACKSON Rep #:[id number] : 1970 52 From: Jeison Forde DPM PCP: [facility] atus:ADM IN Location: [address] Providers Date of Admission: 08/30/22 Primary Care Physician: [facility] Consultations 08/30/22 17:15 Consult: Hospitalist Routine Consulting Provider: Sabina Rosenberg Reason for Consult: medical management/pre operative clearance EMERGENT Consult: No MD Notified: Yes Date Notified: 08/30/22 Time Notified: 17:55 Method of Notification: Verbal Consult: Onc/Wound/director occupational Routine Comment: Reason For Visit: GANGRENE RIGH 2ND TOE Diagnosis Discharge Diagnosis (1) Cellulitis of right foot: Status: Acute Code(s): L03.115 - Cellulitis of right lower limb (2) Diabetes mellitus, type 2: Status: Chronic Code(s): E11.9 - Type 2 diabetes mellitus without complications (3) Atherosclerosis of lower extremity: Status: Acute Code(s): I70.209 - Unspecified atherosclerosis of rincon arteries of extremities, unspecified extremity (4) Dry gangrene: Status: Acute Code(s): I96 - Gangrene, not elsewhere classified (5) Foot pain, right: Status: Acute Code(s): M79.671 - Pain in right foot (6) Peripheral vascular disease, unspecified: Status: Acute Code(s): I73.9 - Peripheral vascular disease, unspecified Plan: Exam performed. Dressing left intact. Patient heel weightbearing to right foot in surgical shoe. Patient will keep dressing clean dry and intact until follow-up in 1 week. Patient should attempt smoking cessation. Patient stable for discharge today. Medications at Discharge Home Medications alendronate 70 mg tablet 70 mg PO BONE [facility] 07/25/22 cholecalciferol (vitamin D3) 25 mcg (1,000 unit) tablet 1,000 unit PO DAILY 07/25/22 insulin glargine 100 unit/mL (3 mL) subcutaneous pen (Lantus Solostar U-100 Insulin) 10 units subcut BID 07/25/22 omeprazole 40 mg capsule,delayed release 40 mg PO DAILY #30 caps 07/25/22 dicyclomine 20 mg tablet 20 mg PO BID #14 tabs 08/03/22 atorvastatin 80 mg tablet 80 mg PO DAILY #90 tabs 08/09/22 calcium carbonate 500 mg calcium (1,250 mg) tablet 1 tablet PO DAILY 08/09/22 cilostazol 50 mg tablet 50 mg PO BID #60 tabs 08/09/22 clopidogrel 75 mg tablet (Plavix) 75 mg PO DAILY #30 tabs 08/09/22 desvenlafaxine succinate 25 mg tablet,extended release 24 hr 1 ea PO DAILY 08/09/22 glimepiride 4 mg tablet 1 tablet PO DAILY 08/09/22 trazodone 50 mg tablet 25 - 100 mg PO QHS PRN Insomnia 08/09/22 aspirin 81 mg capsule 81 mg PO DAILY 08/10/22 gabapentin 300 mg capsule (Neurontin) 300 mg PO TID #30 caps 08/14/22 escitalopram oxalate 10 mg tablet 10 mg PO DAILY DEPRESSION 08/30/22 amoxicillin 875 mg-potassium clavulanate 125 mg tablet 1 tab PO BID #15 tabs 09/02/22 carvedilol 3.125 mg tablet 3.125 mg PO BID #60 tabs 09/02/22 lisinopril 10 mg tablet 10 mg PO DAILY #30 tabs 09/02/22 nicotine 21 mg/24 hr daily transdermal patch 21 mg transdermal DAILY #30 ea 09/02/22 oxycodone 5 mg tablet 5 - 10 mg PO Q6H PRN Pain (Scale Score 7-10) 5 days #30 tabs 09/02/22 Hospital Course Summary of Care Provided Hospital Course: Patient admitted for some possible referred perfusion injury versus cellulitis right foot in setting of dry grain cream limited to the distal tuft of the second toe status post revascularization per Dr. Ng in early August. Per patient stable for right second digit amputation. This was performed during this inpatient stay. Patient's pain postoperatively did improve. No concern for residual infection but patient will be discharged on p.o. antibiotics for prophylaxis. She will follow-up in my clinic in 1 week at which time we will change her dressing and assess the incision for healing. Physical Exam Narrative Patient AOx3. Neurovascular status unchanged. Right foot dressing was left intact. No pain with calf squeeze or palpation of popliteal fossa ruling out concern forDVT. Const General Appearance: cooperative, comfortable and well hydrated HEENT normocephalic Eyes EOMs intact bilaterally Neck full ROM Lymph Lymphatic: no lymphadenopathy noted and no lymphedema noted Weight / BMI Weight Weight: 70.8 kg Body Mass Index (BMI) 24.4 ABG / Lab / Microbiology Data Result Diagrams: 08/31/22 06:15 08/31/22 06:15 Laboratory: Laboratory Results - last 24 hr 09/01/22 11:43: POC Glucose 232 H 09/01/22 16:24: POC Glucose 226 H 09/01/22 21:20: POC Glucose 166 H 09/02/22 06:06: POC Glucose 94 Microbiology: Microbiology 08/30/22 15:23 Blood Culture (Wb) - Right Forearm Blood Culture - Preliminary No growth in 48 hours. 08/30/22 14:29 Blood Culture (Wb) - Right Forearm Blood Culture - Preliminary No growth in 48 hours. 08/30/22 15:23 Urine, Clean Catch Urine Culture - Final Mixed Gram Positive Organisms D/C Instructions Discharge Diet: 1800 Calorie Control Diet Weight Bearing Status: - (heel weight bearing right foot) Call your doctor if your incision/area has: Continuous Slow Oozing, Increased Pain/ Swelling and Foul Smelling Discharge Call your doctor if you observe: Fever of 101 or Higher Meaningful Use Info Meaningful Use Diagnoses (Choose all that apply): None applicable Discharge Plan Admission Admit Date/Time: 08/30/22 15:51 Primary Reason for Your Visit: gangrene right second toe Attending Provider: Jeison Forde Primary Care Provider: [facility] Nathaly Finney Consulting Providers: Sabina Rosenberg Instructions Additional Instructions / Restrictions: Keep dressing clean dry and intact follow-up in 1 week. Take prescriptions as directed. Maintain heel weightbearing status in surgical shoe on right foot. Contact our clinic or present to the emergency room if there is any strikethrough to the dressing or any signs or symptoms of infection or DVT. Discharge Orders/Prescriptions Prescriptions: New carvedilol 3.125 mg Tablet 3.125 mg PO BID Qty: 60 0RF lisinopril 10 mg Tablet 10 mg PO DAILY Qty: 30 0RF nicotine 21 mg/24 hr Patch 24 Hour 21 mg transdermal DAILY Qty: 30 0RF oxycodone 5 mg Tablet 5 - 10 mg PO Q6H PRN (Reason: Pain (Scale Score 7-10)) 5 Days Qty: 30 0RF Rx Instructions: may take with 650 mg Tylenol four times a day amoxicillin-pot clavulanate 875-125 mg tablet 1 tab PO BID Qty: 15 0RF Rx Instructions: take with food, start with dinner tonite Continued desvenlafaxine succinate 25 mg tablet extended release 24 hr 1 ea PO DAILY Label Comments: TAKE 1 TABLET BY MOUTH DAILY FOR 5 DAYS, THEN INCREASE TO 2 (TWO) TABLETS DAILY trazodone 50 mg tablet 25 - 100 mg PO QHS PRN (Reason: Insomnia) glimepiride 4 mg tablet 1 tablet PO DAILY calcium carbonate 500 mg calcium (1,250 mg) tablet 1 tablet PO DAILY cilostazol 50 mg tablet 50 mg PO BID Qty: 60 2RF atorvastatin 80 mg tablet 80 mg PO DAILY Qty: 90 3RF clopidogrel [Plavix] 75 mg tablet 75 mg PO DAILY Qty: 30 2RF alendronate 70 mg tablet 70 mg PO WE Label Comments: take one tablet weekly HAS ONLY TAKEN 1X SINCE RX'D cholecalciferol (vitamin D3) 25 mcg (1,000 unit) tablet 1,000 unit PO DAILY Label Comments: TAKE 1 TABLET DAILY insulin glargine [Lantus Solostar U-100 Insulin] 100 unit/mL (3 mL) insulin pen 10 units subcut BID omeprazole 40 mg capsule,delayed release(DR/EC) 40 mg PO DAILY Qty: 30 0RF dicyclomine 20 mg tablet 20 mg PO BID Qty: 14 0RF aspirin 81 mg Capsule 81 mg PO DAILY gabapentin [Neurontin] 300 mg capsule 300 mg PO TID Qty: 30 0RF escitalopram oxalate 10 mg Tablet 10 mg PO DAILY Label Comments: HAS NOT REFILLED SINCE 04/25, BUT STATES SHE TAKES DAILY Discontinued Nitro-Bid 2 % ointment 0.5 inch transdermal BID Qty: 30 0RF Rx Instructions: administer 2 doses/day (approx. 6 hrs apart); remove for 10-12 hrs per 24 hours tramadol 50 mg tablet 50 mg PO TID PRN (Reason: pain) Qty: 30 0RF losartan 25 mg Tablet 25 mg PO DAILY Label Comments: HAS NOT REFILLED SINCE 04/25, BUT STATES SHE TAKES DAILY Referrals / Follow Up: Jeison Forde DPM [Med Staff - Active Staff] - [facility]Primary Care Provider[facility] - Within 2 Weeks Disposition Disposition (needs filled in before D/C Order can be placed): Home Health Service 09/02/22 1117 <Electronically signed by Jeison Forde DPM> Cosigner Signature (if applicable): CC: ALEK Forde; [facility]~ Signed [facility] Work Phone: 1(505) 318-884004-01-[address] Rosenberg [facility] September 02, 2022 10:21am Note Date/Time September 02, 2022 10:2 1am [facility] Medical Records Department [address] [place] [id number] Progress Note - Hospitalist 09/02/22 1018 MR#: [id number] Acct: [id number] Name: TRENTON JACKSON Rep #:[id number] : 1970 52 From: Sabina Rosenberg DO PCP: [facility] St atus:ADM IN Location: [facility] [place] [facility] [place] Reason for Visit Reason for Visit: Diagnoses Type 2 diabetes mellitus without complications (08/30/22) Unspecified atherosclerosis of rincon arteries of extremities, unspecified extremity (08/30/22) Peripheral vascular disease, unspecified (08/30/22) Gangrene, not elsewhere classified (08/30/22) Cellulitis of right lower limb (08/30/22) Pain in right foot (08/30/22) Subjective Subjective Patient was seen and examined today, she has no complaints of shortness of breath, fevers, or chills. I talked with podiatry, they are okay with the patient going home today, I wrote her discharge instructions including sending her prescriptions into her pharmacy. Objective Data Objective Data Vital Signs: Vital Signs Temp Pulse Resp BP Pulse Ox O2 Del Method O2 Flow Rate 98.1 F 100 18 112/75 95 Room Air 4 09/02/22 08:35 09/02/22 08:35 09/02/22 08:35 09/02/22 08:35 09/02/22 08:35 09/02/22 08:35 08/31/22 16:10 Oxygen Flow Rate (L/min) 4 Oxygen Delivery Method Room Air Weight: 70.8 kg Body Mass Index (BMI) 24.4 Intake & Output: Intake and Output for Last 24 Hours 08/31/22 09/01/22 09/02/22 23:59 23:59 23:59 Intake Total 560 / 560 2744.25 / 2744.25 824 / 824 Balance 560 / 560 2744.25 / 2744.25 824 / 824 Lab / Micro Data Result Diagrams: 08/31/22 06:15 08/31/22 06:15 Labs: Laboratory Results - last 24 hr 09/01/22 11:43: POC Glucose 232 H 09/01/22 16:24: POC Glucose 226 H 09/01/22 21:20: POC Glucose 166 H 09/02/22 06:06: POC Glucose 94 Micro: Microbiology 08/30/22 15:23 Blood Culture (Wb) - Right Forearm Blood Culture - Preliminary No growth in 48 hours. 08/30/22 14:29 Blood Culture (Wb) - Right Forearm Blood Culture - Preliminary No growth in 48 hours. 08/30/22 15:23 Urine, Clean Catch Urine Culture - Final Mixed Gram Positive Organisms Physical Exam Narrative alert, oriented x3, no apparent distress, average body habitus and healthy appearing Constitutional Narrative: Patient appears older than her stated age General Appearance: cooperative, well kempt and well developed Orientation / Consciousness: awake, oriented to person, oriented to place and oriented to time HEENT normocephalic, head/scalp atraumatic and moist oral mucous membranes Eyes PERRL, EOMs intact bilaterally and conjunctivae normal Neck supple, no JVD, thyroid normal and no carotid bruits General: trachea midline Resp normal respiratory effort, no retractions, no use of accessory muscles and clearto auscultation bilaterally Auscultation: Negative for rales, rhonchi or wheezes Cardio regular rate, regular rhythm, S1 normal heart sound, S2 normal heart sound, no murmurs, no rub and no gallops GI normal to inspection, nondistended, normoactive bowel sounds, soft to palpation,non-tender and non-distended Extremity Extremity Narrative: Gangrenous changes are noted to the right second toe with dry gangrene present along with some swelling and tenderness of the area Skin Skin Narrative: Examination of the patient's right foot reveals an area of dry gangrene to the right second toe along with some swelling of the area and tenderness to palpation. Neuro oriented x3, CN's II-XII intact bilaterally, moves all extremities, no focal motor deficits and no sensory deficits noted Sensorium / Orientation: awake and alert Speech: speech normal Psych affect normal Assessment & Plan Assessment/Plan (1) Cellulitis of right foot: (2) Diabetes mellitus, type 2: (3) Atherosclerosis of lower extremity: PLAN: Plan 1. Type 2 diabetes-under poor control-patient will remain on her home insulin therapy patient appears to be medical stable at this time #2 coronary artery disease-extent unknown at this time, she will need further work-up as an outpatient, patient is on aspirin and Plavix #3 peripheral vascular disease-according to podiatry, patient does not need any intervention in her right leg at this time, she has a past history of stents. Patient is on antiplatelet drugs currently, I have stopped her nitroglycerin ointment to her foot-I do not think this adds anything to her care #4 dry gangrene of the second right toe-patient underwent amputation of the toe today #5 lactic acidosis-probably secondary to gangrene of her right second toe, I do not believe the patient is septic #6 ischemic cardiomyopathy-again patient will need further work-up as an outpatient, I started the patient on lisinopril and carvedilol yesterday, her blood pressure remained stable, I may be able to increase it on her discharge Total clinical time spent by myself addressing the patient's medical issues, reviewing all her data, and collaborating with the patient's care team: 35 minutes Charges/Coding Visit Charges Inpatient E&M: 46251 Subs Hosp L2 04/01/23 1021 <Electronically signed by Sabina Rosenberg DO> Cosigner Signature (if applicable): CC: ~ Signed [facility] Work Phone: 1(950) 604-186504-01-[address] Forde [facility] September 02, 2022 10:20am Note Date/Time September 02, 2022 10:2 0am [facility] Medical Records Department [address] [place] [address] Progress Note 09/02/22 1018 MR#: [id number] Acct: [id number] Name: TRENTON JCAKSON Rep #:[id number] : 1970 52 From: Jeison Forde DPM PCP: [facility] atus:ADM IN Location: [address] Subjective Subjective Patient denies constitutional symptoms. pain improved today. No other complaints. Objective Data Objective Data Vital Signs: Vital Signs Temp Pulse Resp BP Pulse Ox O2 Del Method O2 Flow Rate 98.1 F 100 18 112/75 95 Room Air 4 09/02/22 08:35 09/02/22 08:35 09/02/22 08:35 09/02/22 08:35 09/02/22 08:35 09/02/22 08:35 08/31/22 16:10 Oxygen Flow Rate (L/min) 4 Oxygen Delivery Method Room Air Weight: 70.8 kg Body Mass Index (BMI) 24.4 Intake & Output: Intake and Output for Last 24 Hours 08/31/22 09/01/22 09/02/22 23:59 23:59 23:59 Intake Total 560 / 560 2744.25 / 2744.25 824 / 824 Balance 560 / 560 2744.25 / 2744.25 824 / 824 Lab / Micro Data Result Diagrams: 08/31/22 06:15 08/31/22 06:15 Labs: Laboratory Results - last 24 hr 09/01/22 11:43: POC Glucose 232 H 09/01/22 16:24: POC Glucose 226 H 09/01/22 21:20: POC Glucose 166 H 09/02/22 06:06: POC Glucose 94 Micro: Microbiology 08/30/22 15:23 Blood Culture (Wb) - Right Forearm Blood Culture - Preliminary No growth in 48 hours. 08/30/22 14:29 Blood Culture (Wb) - Right Forearm Blood Culture - Preliminary No growth in 48 hours. 08/30/22 15:23 Urine, Clean Catch Urine Culture - Final Mixed Gram Positive Organisms Physical Exam Narrative Neurovascular status unchanged. No signs of DVT. Dressing to right foot left intact.. Const alert and oriented x3 Constitutional Narrative: Patient has atrophic skin changes with dry stable eschar limited to distal tuft of right 2nd toe. some perinecrosis edema/erythema. No other acute signs of infection. Perforating peroneal pulse triphasic, dorsalis pedis pulse biphasic and posterior tibial pulse biphasic. No gross deformity Light touch/protective sensation diminished to bilateral feet. Assessment & Plan Assessment/Plan (1) Peripheral vascular disease, unspecified: PLAN: Exam performed. Dressing left intact. Patient heel weightbearing to right foot in surgical shoe. Patient will keep dressing clean dry and intact until follow-up in 1 week. Patient should attempt smoking cessation. Patient stable for discharge today. (2) Dry gangrene: (3) Foot pain, right: 09/02/22 1020 <Electronically signed by Jeison Forde DPM> Jeison Forde DPM Cosigner Signature (if applicable): CC: ~ Signed [facility] Work Phone: 1(623) 868-236604-01-[address] Rosenberg [facility] September 02, 2022 10:18am Note Date/Time September 02, 2022 9:45 am [facility] Medical Records Department [address] [place] [id number] Instructions for Home/Discharge Instructions 09/02/22 0941 MR#: [id number] Acct: [id number] Name: TRENTON JACKSON Rep #:[id number] : 1970 52 From: Sabina Rosenberg DO PCP: [facility] atus:ADM IN Discharge Instructions Diet Discharge Diet: 1800 Calorie Control Diet Activity Discharge Activity: Return to Normal Activity Weight Bearing Status: - (heel weight bearing right foot) Dressing / Incision Call your doctor if your incision/area has: Continuous Slow Oozing, Increased Pain/ Swelling and Foul Smelling Discharge Call your doctor if you observe: Fever of 101 or Higher Change Dressing in: do not change dressing Remove Dressing in: do not remove dressing Follow Up Care Test Results: Test results from this visit will be discussed in further detail at your follow- up appointment, if applicable. Discharge Plan Admission Admit Date/Time: 08/30/22 15:51 Primary Reason for Your Visit: gangrene right second toe Attending Provider: Jeison Forde Primary Care Provider: [facility] Nathaly Finney Consulting Providers: Sabina Rosenberg Discharge Orders/Prescriptions Prescriptions: New carvedilol 3.125 mg Tablet 3.125 mg PO BID Qty: 60 0RF lisinopril 10 mg Tablet 10 mg PO DAILY Qty: 30 0RF nicotine 21 mg/24 hr Patch 24 Hour 21 mg transdermal DAILY Qty: 30 0RF oxycodone 5 mg Tablet 5 - 10 mg PO Q6H PRN (Reason: Pain (Scale Score 7-10)) 5 Days Qty: 30 0RF Rx Instructions: may take with 650 mg Tylenol four times a day amoxicillin-pot clavulanate 875-125 mg tablet 1 tab PO BID Qty: 15 0RF Rx Instructions: take with food, start with dinner tonite Continued desvenlafaxine succinate 25 mg tablet extended release 24 hr 1 ea PO DAILY Label Comments: TAKE 1 TABLET BY MOUTH DAILY FOR 5 DAYS, THEN INCREASE TO 2 (TWO) TABLETS DAILY trazodone 50 mg tablet 25 - 100 mg PO QHS PRN (Reason: Insomnia) glimepiride 4 mg tablet 1 tablet PO DAILY calcium carbonate 500 mg calcium (1,250 mg) tablet 1 tablet PO DAILY cilostazol 50 mg tablet 50 mg PO BID Qty: 60 2RF atorvastatin 80 mg tablet 80 mg PO DAILY Qty: 90 3RF clopidogrel [Plavix] 75 mg tablet 75 mg PO DAILY Qty: 30 2RF alendronate 70 mg tablet 70 mg PO WE Label Comments: take one tablet weekly HAS ONLY TAKEN 1X SINCE RX'D cholecalciferol (vitamin D3) 25 mcg (1,000 unit) tablet 1,000 unit PO DAILY Label Comments: TAKE 1 TABLET DAILY insulin glargine [Lantus Solostar U-100 Insulin] 100 unit/mL (3 mL) insulin pen 10 units subcut BID omeprazole 40 mg capsule,delayed release(DR/EC) 40 mg PO DAILY Qty: 30 0RF dicyclomine 20 mg tablet 20 mg PO BID Qty: 14 0RF aspirin 81 mg Capsule 81 mg PO DAILY gabapentin [Neurontin] 300 mg capsule 300 mg PO TID Qty: 30 0RF escitalopram oxalate 10 mg Tablet 10 mg PO DAILY Label Comments: HAS NOT REFILLED SINCE 04/25, BUT STATES SHE TAKES DAILY Discontinued Nitro-Bid 2 % ointment 0.5 inch transdermal BID Qty: 30 0RF Rx Instructions: administer 2 doses/day (approx. 6 hrs apart); remove for 10-12 hrs per 24 hours tramadol 50 mg tablet 50 mg PO TID PRN (Reason: pain) Qty: 30 0RF losartan 25 mg Tablet 25 mg PO DAILY Label Comments: HAS NOT REFILLED SINCE 04/25, BUT STATES SHE TAKES DAILY Referrals / Follow Up: Jeison Forde DPM [Med Staff - Active Staff] - [facility]Nathaly Lainez [Primary Care Provider] - Within 2 Weeks Disposition Disposition (needs filled in before D/C Order can be placed): Home Health Service 09/02/22 1018<Electronically signed by Sabina Rosenberg DO>Sabina Rosenberg DO CC: Dr. Sabina Rosenberg DO; [facility] ~ Signed [facility] Work Phone: 1(460) 367-866203-31-[address] Rosenberg [facility] September 01, 2022 6:58pm Note Date/Time September 01, 2022 3:2 3pm [facility] Medical Records Department [address] [place] [address] Progress Note - Hospitalist 09/01/22 1518 MR#: [id number] Acct: [id number] Name: TRENTON JACKSON Rep #:[id number] : 1970 52 From: Sabina Rosenberg DO PCP: [facility] St atus:ADM [place] Location: [place]3 [id number] Reason for Visit Reason for Visit: Diagnoses Type 2 diabetes mellitus without complications (08/30/22) Unspecified atherosclerosis of rincon arteries of extremities, unspecified extremity (08/30/22) Peripheral vascular disease, unspecified (08/30/22) Gangrene, not elsewhere classified (08/30/22) Cellulitis of right lower limb (08/30/22) Pain in right foot (08/30/22) Subjective Subjective Was seen and examined today, she is complaining of postop pain but otherwise is doing well, she has no complaints of any shortness of breath or chest discomfort. Objective Data Objective Data Vital Signs: Vital Signs Temp Pulse Resp BP Pulse Ox O2 Del Method O2 Flow Rate 97.7 F L 102 H 16 121/87 H 99 Room Air 4 09/01/22 08:18 09/01/22 08:26 09/01/22 08:18 09/01/22 08:18 09/01/22 08:18 09/01/22 08:26 08/31/22 16:10 Oxygen Flow Rate (L/min) 4 Oxygen Delivery Method Room Air Weight: 70.8 kg Body Mass Index (BMI) 24.4 Intake & Output: Intake and Output for Last 24 Hours 08/30/22 08/31/22 09/01/22 23:59 23:59 23:59 Intake Total 2111 560 / 560 824 / 824 Balance 2111 560 / 560 824 / 824 Lab / Micro Data Result Diagrams: 08/31/22 06:15 08/31/22 06:15 Labs: Laboratory Results - last 24 hr 08/31/22 16:49: POC Glucose 138 H 08/31/22 21:27: POC Glucose 323 H 09/01/22 08:14: POC Glucose 157 H 09/01/22 11:43: POC Glucose 232 H Micro: Microbiology 08/30/22 15:23 Blood Culture (Wb) - Right Forearm Blood Culture - Preliminary No growth in 48 hours. 08/30/22 14:29 Blood Culture (Wb) - Right Forearm Blood Culture - Preliminary No growth in 48 hours. 08/30/22 15:23 Urine, Clean Catch Urine Culture - Final Mixed Gram Positive Organisms Physical Exam Narrative alert, oriented x3, no apparent distress, average body habitus and healthy appearing Constitutional Narrative: Patient appears older than her stated age General Appearance: cooperative, well kempt and well developed Orientation / Consciousness: awake, oriented to person, oriented to place and oriented to time HEENT normocephalic, head/scalp atraumatic and moist oral mucous membranes Eyes PERRL, EOMs intact bilaterally and conjunctivae normal Neck supple, no JVD, thyroid normal and no carotid bruits General: trachea midline Resp normal respiratory effort, no retractions, no use of accessory muscles and clearto auscultation bilaterally Auscultation: Negative for rales, rhonchi or wheezes Cardio regular rate, regular rhythm, S1 normal heart sound, S2 normal heart sound, no murmurs, no rub and no gallops GI normal to inspection, nondistended, normoactive bowel sounds, soft to palpation,non-tender and non-distended Extremity Extremity Narrative: Gangrenous changes are noted to the right second toe with dry gangrene present along with some swelling and tenderness of the area Skin Skin Narrative: Examination of the patient's right foot reveals an area of dry gangrene to the right second toe along with some swelling of the area and tenderness to palpation. Neuro oriented x3, CN's II-XII intact bilaterally, moves all extremities, no focal motor deficits and no sensory deficits noted Sensorium / Orientation: awake and alert Speech: speech normal Psych affect normal Assessment & Plan Assessment/Plan (1) Diabetes mellitus, type 2: (2) Atherosclerosis of lower extremity: PLAN: Plan 1. Type 2 diabetes-under poor control-patient will remain on her home insulin therapy, fingerstick blood sugars will be obtained and sliding scale insulin will be used to cover elevated blood sugars. #2 coronary artery disease-extent unknown at this time, she will need further work-up as an outpatient, patient is on aspirin and Plavix #3 peripheral vascular disease-according to podiatry, patient does not need any intervention in her right leg at this time, she has a past history of stents. Patient is on antiplatelet drugs currently, I have stopped her nitroglycerin ointment to her foot-I do not think this adds anything to her care #4 dry gangrene of the second right toe-patient underwent amputation of the toe today #5 lactic acidosis-probably secondary to gangrene of her right second toe, I do not believe the patient is septic #6 ischemic cardiomyopathy-again patient will need further work-up as an outpatient, I started the patient on lisinopril and carvedilol yesterday, her blood pressure remained stable, I may be able to increase it on her discharge Total clinical time spent by myself addressing the patient's medical issues, reviewing all her data, and collaborating with the patient's care team: 35 minutes Charges/Coding Visit Charges Inpatient E&M: 80717 Subs Hosp L2 09/01/22 1858 <Electronically signed by Sabina Rosenberg DO> Cosigner Signature (if applicable): CC: ~ Signed [facility] Work Phone: 1(325) 787-153803-31-[address] Forde [facility] September 01, 2022 12:02pm Note Date/Time September 01, 2022 12: 02pm [facility] Medical Records Department [address] [place] [address] Progress Note 09/01/22 1200 MR#: [id number] Acct: [id number] Name: TRENTON JACKSON Rep #:[id number] : 1970 52 From: Jeison Forde DPM PCP: [facility] atus:ADM [place] Location: [address] Subjective Subjective 52-year-old female 1 day postop status post right second digit amputation. She notes some improvement in her pain since amputation of the digit. Patient denies constitutional symptoms. Patient denies signs of DVT. Patient passing gas and passing urine. Objective Data Objective Data Vital Signs: Vital Signs Temp Pulse Resp BP Pulse Ox O2 Del Method O2 Flow Rate 97.7 F L 102 H 16 121/87 H 99 Room Air 4 09/01/22 08:18 09/01/22 08:26 09/01/22 08:18 09/01/22 08:18 09/01/22 08:18 09/01/22 08:26 08/31/22 16:10 Oxygen Flow Rate (L/min) 4 Oxygen Delivery Method Room Air Weight: 70.8 kg Body Mass Index (BMI) 24.4 Intake & Output: Intake and Output for Last 24 Hours 08/30/22 08/31/22 09/01/22 23:59 23:59 23:59 Intake Total 2111 560 / 560 112 / 112 Balance 2111 560 / 560 112 / 112 Lab / Micro Data Result Diagrams: 08/31/22 06:15 08/31/22 06:15 Labs: Laboratory Results - last 24 hr 08/31/22 11:27: POC Glucose 179 H 08/31/22 16:49: POC Glucose 138 H 08/31/22 21:27: POC Glucose 323 H 09/01/22 08:14: POC Glucose 157 H Micro: Microbiology 08/30/22 15:23 Blood Culture (Wb) - Right Forearm Blood Culture - Preliminary No growth in 48 hours. 08/30/22 14:29 Blood Culture (Wb) - Right Forearm Blood Culture - Preliminary No growth in 48 hours. 08/30/22 15:23 Urine, Clean Catch Urine Culture - Final Mixed Gram Positive Organisms Physical Exam Narrative Neurovascular status unchanged. No signs of DVT. Incision to right second digit amputation site well approximated with intact sutures. No signs of infection or skin breakdown. Assessment & Plan Assessment/Plan (1) Peripheral vascular disease, unspecified: PLAN: Exam performed. Patient is incision healing well. We will keep overnight due to some additional pain. Patient denying SNF placement. She will maintain heel weightbearing in surgical shoe upon discharge for limitedambulation until incisional healing. Dressing redressed with Betadine Adaptic 4 x 4's dry sterile dressing. Patient should quit smoking. Discussed with patient. No antibiotics upon discharge due to elimination of necrotic tissue. (2) Dry gangrene: (3) Foot pain, right: 09/01/22 1202 <Electronically signed by Jeison Forde DPM> Jeison Forde DPM Cosigner Signature (if applicable): CC: ~ Signed [facility] Work Phone: 1(205) 738-177003-30-[address] Rosenberg [facility] August 31, 2022 5:17pm Note Date/Time August 31, 2022 4:5 9pm [facility] Medical Records Department [address] [place] [address] Progress Note - Hospitalist 08/31/22 1658 MR#: [id number] Acct: [id number] Name: TRENTON JACKSON Rep #:[id number] : 1970 52 From: Sabina Rosenberg DO PCP: [facility] atus:ADM IN Location: [place] [address] Reason for Visit Reason for Visit: Diagnoses Type 2 diabetes mellitus without complications (08/30/22) Peripheral vascular disease, unspecified (08/30/22) Gangrene, not elsewhere classified (08/30/22) Cellulitis of right lower limb (08/30/22) Pain in right foot (08/30/22) Subjective Subjective Patient was seen and examined today, her EKG showed no acute ischemic changes. Patient's echocardiogram however showed a severely reduced ejection fraction of 15%. Patient will need follow-up on this as an outpatient, I called her primarycare office ([facility]) and talk to Lory who is the nurse practitioner there, she will follow-up with the patient after discharge from the hospital. Objective Data Objective Data Vital Signs: Vital Signs Temp Pulse Resp BP Pulse Ox O2 Del Method O2 Flow Rate 98 F 108 H 18 115/87 H 98 Room Air 4 08/31/22 16:37 08/31/22 16:37 08/31/22 16:37 08/31/22 16:37 08/31/22 16:37 08/31/22 16:37 08/31/22 16:10 Oxygen Flow Rate (L/min) 4 Oxygen Delivery Method Room Air Weight: 70.8 kg Body Mass Index (BMI) 24.4 Intake & Output: Intake and Output for Last 24 Hours 08/29/22 08/30/22 08/31/22 23:59 23:59 23:59 Intake Total 2111 336 / 336 Balance 2111 336 / 336 Lab / Micro Data Result Diagrams: 08/31/22 06:15 08/31/22 06:15 Labs: Laboratory Results - last 24 hr 08/30/22 19:23: Lactic Acid 1.1 08/30/22 22:14: POC Glucose 270 H 08/31/22 06:15: WBC 6.8, RBC 4.86, Hgb 13.6, Hct 41.5, MCV 85.4, MCH 28.0, MCHC 32.8, RDW Std Deviation 39.9, RDW Coeff of Spencer 13.0, Plt Count 227, MPV 9.1, Immature Gran % (Auto) 0.300, Neut % (Auto) 64.6, Lymph % (Auto) 26.6, Erie % (Auto) 6.5, Eos % (Auto) 1.3, Baso % (Auto) 0.7, Absolute Neuts (auto) 4.4, Absolute Lymphs (auto) 1.81, Nucleated RBC % 0 08/31/22 06:15: Sodium 137, Potassium 3.7, Chloride 108 H, Carbon Dioxide 26.0, Anion Gap 3 L, BUN 9, Creatinine 0.62, Estim Creat Clear Calc 104.39, Est GFR (MDRD) Af Amer 131, Est GFR (MDRD) Non-Af 109, BUN/Creatinine Ratio 14.6, Glucose 221 H, Calcium 8.8 08/31/22 11:27: POC Glucose 179 H Micro: Microbiology 08/30/22 15:23 Urine, Clean Catch Urine Culture - Final Mixed Gram Positive Organisms Radiography Diagnostic Testing: Radiology Impression Echocardiogram 08/31/22 05:55 Interpretation Summary The estimated ejection fraction is 15 %. There is evidence of diastolic dysfunction. Mild hypokinesis of the basal portion of the LV. Severe hypokinesis to akinesis of the rest of the LV. Trivial mitral valve insufficiency. Small pericardial effusion. Ordering Physician: Sabina Rosenberg Referring Physician: NATHALY LAINEZ Performed By: Adela Pimentel RDCS Physical Exam Narrative alert, oriented x3, no apparent distress, average body habitus and healthy appearing Constitutional Narrative: Patient appears older than her stated age General Appearance: cooperative, well kempt and well developed Orientation / Consciousness: awake, oriented to person, oriented to place and oriented to time HEENT normocephalic, head/scalp atraumatic and moist oral mucous membranes Eyes PERRL, EOMs intact bilaterally and conjunctivae normal Neck supple, no JVD, thyroid normal and no carotid bruits General: trachea midline Resp normal respiratory effort, no retractions, no use of accessory muscles and clearto auscultation bilaterally Auscultation: Negative for rales, rhonchi or wheezes Cardio regular rate, regular rhythm, S1 normal heart sound, S2 normal heart sound, no murmurs, no rub and no gallops GI normal to inspection, nondistended, normoactive bowel sounds, soft to palpation,non-tender and non-distended Extremity Extremity Narrative: Gangrenous changes are noted to the right second toe with dry gangrene present along with some swelling and tenderness of the area Skin Skin Narrative: Examination of the patient's right foot reveals an area of dry gangrene to the right second toe along with some swelling of the area and tenderness to palpation. Neuro oriented x3, CN's II-XII intact bilaterally, moves all extremities, no focal motor deficits and no sensory deficits noted Sensorium / Orientation: awake and alert Speech: speech normal Psych affect normal Assessment & Plan Assessment/Plan (1) Atherosclerosis of lower extremity: (2) Diabetes mellitus, type 2: PLAN: Plan 1. Type 2 diabetes-under poor control-patient will remain on her home insulin therapy, fingerstick blood sugars will be obtained and sliding scale insulin will be used to cover elevated blood sugars. #2 coronary artery disease-patient's medical record reveals that she had a diagnosis of diffuse severe disease of her distal LAD in 2018, and in her chartit was stated that she was sent to the [facility] for further evaluation and it was determined that she did not need any intervention. Patient also has a past history of a reduced ejection fraction. Again, patient is echocardiogramtoday shows severely reduced ejection fraction of 15%, she will need follow-up as an outpatient concerning this, I will start her on lisinopril and carvedilol. I talked with podiatry about this. #3 peripheral vascular disease-according to podiatry, patient does not need any intervention in her right leg at this time, she has a past history of stents. Patient is on antiplatelet drugs currently #4 dry gangrene of the second right toe-patient underwent amputation of the toe today #5 lactic acidosis-probably secondary to gangrene of her right second toe, I do not believe the patient is septic Total clinical time spent by myself addressing the patient's medical issues, reviewing all her data, and collaborating with the patient's care team: 35 minutes Charges/Coding Visit Charges Inpatient E&M: 48753 Subs Hosp L2 08/31/22 7661 <Electronically signed by Sabina Rosenberg DO> Cosigner Signature (if applicable): CC: ~ Signed [facility] Work Phone: 1(122) 152-856803-30-2023 Procedure [facility] 08-30-[address] Rosenberg [facility] August 30, 2022 8:00pm Note Date/Time August 30, 2022 7:5 0pm [facility] Medical Records Department [address] [place] [address] Progress Note - Hospitalist 08/30/221943 MR#: [id number] Acct: [id number] Name: TRENTON JACKSON Rep #:[id number] : 1970 52 From: Sabina Rosenberg DO PCP: [facility] atus:ADM [place] [facility] Reason for Visit Reason for Visit: Diagnoses Peripheral vascular disease, unspecified (08/30/22) Cellulitis of right lower limb (08/30/22) Pain in right foot (08/30/22) Subjective Subjective Patient was seen and examined today at request of podiatry, she is a [id number] female came to the ER today with complaints of pain and dry gangrene to the distal area of her right second toe. Patient's chronic medical problems include type 2 diabetes, peripheral vascular disease, essential hypertension, hyperlipidemia, GERD, and a history of congestive heart failure. Patient does not follow with a resume writer, she is being seen by her PCP. Objective Data Objective Data Vital Signs: Vital Signs Temp Pulse Resp BP Pulse Ox O2 Del Method 98.4 F 118 H 18 142/101 H 97 Room Air 08/30/22 16:13 08/30/22 17:01 08/30/22 17:01 08/30/22 17:01 08/30/22 17:01 08/30/22 16:13 Oxygen Delivery Method Room Air Weight: 70.8 kg Body Mass Index (BMI) 24.4 Intake & Output: Intake and Output for Last 24 Hours 08/28/22 08/29/22 08/30/22 23:59 23:59 23:59 Intake Total 1999 Balance 1999 Lab / Micro Data Result Diagrams: 08/30/22 14:29 08/30/22 14:29 Labs: Laboratory Results - last 24 hr 08/30/22 14:29: WBC 8.6, RBC 5.43 H, Hgb 15.0, Hct 45.4, MCV 83.6, MCH 27.6, MCHC 33.0, RDW Std Deviation 39.0, RDW Coeff of Spencer 12.9, Plt Count 266, MPV 9.1, Immature Gran % (Auto) 0.200, Neut % (Auto) 77.4 H, Lymph % (Auto) 15.4 L, Erie % (Auto) 5.9, Eos % (Auto) 0.5, Baso % (Auto) 0.6, Absolute Neuts (auto) 6.7, Absolute Lymphs (auto) 1.33, Nucleated RBC % 0 08/30/22 14:29: PT 12.6, INR 1.0, APTT 26.7 08/30/22 14:29: Sodium 132 L, Potassium 4.0, Chloride 96 L, Carbon Dioxide 31.0,Anion Gap 5, BUN 10, Creatinine 0.99, Estim Creat Clear Calc 65.38, Est GFR (MDRD) Af Amer 76, Est GFR (MDRD) Non-Af 63, BUN/Creatinine Ratio 10.1, Glucose 400 H, Calcium 9.1, Total Bilirubin 0.70, AST 15, ALT 17, Alkaline Phosphatase 133 H, Total Protein 7.1, Albumin 3.0 L, Globulin 4.1, Albumin/Globulin Ratio 0.7 L 08/30/22 14:29: Lactic Acid 2.2 H* 08/30/22 14:29: Hemoglobin A1c 11.5 H Radiography Diagnostic Testing: Radiology Impression Foot X-Ray 08/30/22 14:30 IMPRESSION: Healed fracture of the distal portion of the fifth metatarsal. Soft tissue laceration overlying the distal portion of the second toe. Electronically Signed: Ryan Tejeda MD at 14:47 EDT , Chest X-Ray 08/30/22 16:15 IMPRESSION: Right proximal humeral fracture. Electronically Signed: Sebastien Mireles MD at 16:45 EDT , Physical Exam Const alert, oriented x3, no apparent distress, average body habitus and healthy appearing Constitutional Narrative: Patient appears older than her stated age General Appearance: cooperative, well kempt and well developed Orientation / Consciousness: awake, oriented to person, oriented to place and oriented to time HEENT normocephalic, head/scalp atraumatic and moist oral mucous membranes Eyes PERRL, EOMs intact bilaterally and conjunctivae normal Neck supple, no JVD, thyroid normal and no carotid bruits General: trachea midline Resp normal respiratory effort, no retractions, no use of accessory muscles and clearto auscultation bilaterally Auscultation: Negative for rales, rhonchi or wheezes Cardio regular rate, regular rhythm, S1 normal heart sound, S2 normal heart sound, no murmurs, no rub and no gallops GI normal to inspection, nondistended, normoactive bowel sounds, soft to palpation,non-tender and non-distended Extremity Extremity Narrative: Gangrenous changes are noted to the right second toe with dry gangrene present along with some swelling and tenderness of the area Skin Skin Narrative: Examination of the patient's right foot reveals an area of dry gangrene to the right second toe along with some swelling of the area and tenderness to palpation. Neuro oriented x3, CN's II-XII intact bilaterally, moves all extremities, no focal motor deficits and no sensory deficits noted Sensorium / Orientation: awake and alert Speech: speech normal Psych affect normal Assessment & Plan Assessment/Plan (1) Diabetes mellitus, type 2: PLAN: Plan 1. Type 2 diabetes-under poor control-patient will remain on her home insulin therapy, fingerstick blood sugars will be obtained and sliding scale insulin will be used to cover elevated blood sugars. Patient's glucose in the ER today was 400, her hemoglobin A1c was 11.5 #2 coronary artery disease-patient's medical record reveals that she had a diagnosis of diffuse severe disease of her distal LAD in 2018, and her chart it was stated that she was sent to the [facility] for further evaluation and it was determined that she did not need any intervention. Patient also has a past history of a reduced ejection fraction, unfortunately there is no record atthis institution of the patient ever having an echocardiogram. I will order an echocardiogram in the morning to assess the patient's cardiac function. I will order an EKG on the patient for the morning. #3 peripheral vascular disease-according to podiatry, patient does not need any intervention in her right leg at this time, she has a past history of stents. Patient is on antiplatelet drugs currently #4 dry gangrene of the second right toe-patient was admitted under podiatry, shewill undergo an amputation of this area tomorrow afternoon #5 lactic acidosis-probably secondary to gangrene of her right second toe, I do not believe the patient is septic Total clinical time spent by myself addressing the patient's medical issues, reviewing all her data, and collaborating with the patient's care team: 50 minutes Charges/Coding Visit Charges Inpatient E&M: 05868 [facility] Hosp 08/30/221999 <Electronically signed by Sabina Rosenberg DO> Cosigner Signature (if applicable): CC: ~ Signed [facility] Work Phone: 1(231) 806-780703-29-2023 History and physical note Author Dr. Forde [facility] August 30, 2022 4:09pm Note Date/Time August 30, 2022 4:0 9pm [facility] Medical Records Department [address] [place] [id number] History & Physical Exam 08/30/22 1600 MR#: [id number] Acct: [id number] Name: TRENTON JACKSON Rep #:[id number] : 1970 52 From: Jeison Forde DPM PCP: [facility] atus:REG ER Location: ED HPI - General General Date of Admission: 08/30/22 Date of Service: 08/30/22 HPI Narrative TRENTON JACKSON, is a 52 F who presents with painful reperfusion injury to right foot with dry grangrene limited to distal tuft of the right 2nd toe. Patient is a poorly controlled type II diabetic and daily smoker with recent vascular intervention via Dr. Ng on 08/06/22. Patient has noted continued pain since that procedure and was supposed to follow up with podiatry in the outpatient setting, but presented to ER today with significant pain. Patient denies any fever, chills, but notes some nausea related to her foot pain. Patient has no other complaints. [facility] Medical History CAD (coronary artery disease), rincon coronary artery CHF (congestive heart failure) GERD (gastroesophageal reflux disease) HTN (hypertension) Hx of fracture of humerus Hyperlipidemia Toe amputee Home Medications alendronate 70 mg tablet 70 mg PO WE 07/25/22 [History Last Taken Unknown] cholecalciferol (vitamin D3) 25 mcg (1,000 unit) tablet 1,000 unit PO DAILY 07/25/22 [History Last Taken Unknown] insulin glargine 100 unit/mL (3 mL) subcutaneous pen (Lantus Solostar U-100 Insulin) 10 units subcut BID 07/25/22 [History Last Taken Unknown] omeprazole 40 mg capsule,delayed release 40 mg PO DAILY #30 caps 07/25/22 [Rx Last Taken Unknown] dicyclomine 20 mg tablet 20 mg PO BID #14 tabs 08/03/22 [Rx Last Taken Unknown] atorvastatin 80 mg tablet 80 mg PO DAILY #90 tabs 08/09/22 [Rx Last Taken Unknown] calcium carbonate 500 mg calcium (1,250 mg) tablet 1 tablet PO DAILY 08/09/22 [History Last Taken Unknown] cilostazol 50 mg tablet 50 mg PO BID #60 tabs 08/09/22 [Rx Last Taken Unknown] clopidogrel 75 mg tablet (Plavix) 75 mg PO DAILY #30 tabs 08/09/22 [Rx Last Taken Unknown] desvenlafaxine succinate 25 mg tablet,extended release 24 hr 1 ea PO DAILY 08/09/22 [History Last Taken Unknown] glimepiride 4 mg tablet 1 tablet PO DAILY 08/09/22 [History Last Taken Unknown] ivermectin 3 mg tablet 12 mg PO X1 08/09/22 [History Last Taken Unknown] nitroglycerin 2 % transdermal ointment (Nitro-Bid) 0.5 inch transdermal BID #30 grams 08/09/22 [Rx Last Taken Unknown] tramadol 50 mg tablet 50 mg PO TID PRN pain #30 tabs 08/09/22 [Rx Last Taken Unknown] trazodone 50 mg tablet 50 mg PO DAILY 08/09/22 [History Last Taken Unknown] aspirin 81 mg capsule 81 mg PO DAILY 08/10/22 [History Last Taken 08/10/22] gabapentin 300 mg capsule (Neurontin) 300 mg PO TID #30 caps 08/14/22 [Rx Last Taken Unknown] oxycodone-acetaminophen 5 mg-325 mg tablet (Percocet) 1 tab PO Q6H PRN pain 3 days #12 tabs 08/14/22 [Rx Last Taken Unknown] Allergy/AdvReac Type Severity Reaction Status Date / Time latex Allergy Hives Verified 08/30/22 13:57 Family History Other Diabetes Heart disease Surgical History History of cholecystectomy Social History household members: spouse and children housing: house Smoking Status: Current every day smoker tobacco type: cigarettes alcohol intake: never what type of physical activity do you participate in: none do you feel safe at home: Yes ROS Constitutional Constitutional: Denies fatigue, fever(s) or frequent falls Eyes Eyes: Denies change in eye color, exophthalmos or nystagmus ENT HEENT: Denies dysphagia, ear discharge or mouth pain Cardiovascular Cardiovascular: Denies bluish discoloration of hand/feet, dyspnea at rest or lightheadedness Respiratory/Chest Respiratory/Chest: Denies difficulty clearing secretions, nail bed cyanosis or non-rest sleep EDS Gastrointestinal Gastrointestinal: Denies chewing difficulty, coffee ground emesis or hematemesis Genitourinary Genitourinary: Denies contractions, difficulty urinating or genital pain Musculoskeletal Musculoskeletal: Denies joint stiffness, joint swelling or stiffness Integumentary Integumentary: Denies erythema, furuncle or unusual bruising Neurologic Neurologic: Denies burning sensations, confusion or other visual disturbances Psychiatric Psychiatric: Denies change in appetite, change in libido or mood swings Vital Signs Vital Signs Vital Signs: 08/30/22 13:53 08/30/22 14:28 Temperature 98.3 F Temperature Source Oral Pulse Rate 123 H Respiratory Rate 18 Blood Pressure 136/90 H Blood Pressure Mean 105 Pulse Ox 98 Oxygen Delivery Method Room Air Room Air Weight Weight: 70.8 kg Body Mass Index (BMI) 24.4 Physical Exam Const alert and oriented x3 Constitutional Narrative: Patient has atrophic skin changes with dry stable eschar limited to distal tuft of right 2nd toe. some perinecrosis edema/erythema. No other acute signs of infection. Perforating peroneal pulse triphasic, dorsalis pedis pulse biphasic and posterior tibial pulse biphasic. No gross deformity Light touch/protective sensation diminished to bilateral feet. Results Lab / Micro Data Result Diagrams: 08/30/22 14:29 08/30/22 14:29 Labs: Laboratory Results - last 24 hr 08/30/22 14:29: WBC 8.6, RBC 5.43 H, Hgb 15.0, Hct 45.4, MCV 83.6, MCH 27.6, MCHC 33.0, RDW Std Deviation 39.0, RDW Coeff of Spencer 12.9, Plt Count 266, MPV 9.1, Immature Gran % (Auto) 0.200, Neut % (Auto) 77.4 H, Lymph % (Auto) 15.4 L, Erie % (Auto) 5.9, Eos % (Auto) 0.5, Baso % (Auto) 0.6, Absolute Neuts (auto) 6.7, Absolute Lymphs (auto) 1.33, Nucleated RBC % 0 08/30/22 14:: PT 12.6, INR 1.0, APTT 26.7 08/30/22 14:29: Sodium 132 L, Potassium 4.0, Chloride 96 L, Carbon Dioxide 31.0,Anion Gap 5, BUN 10, Creatinine 0.99, Estim Creat Clear Calc 65.38, Est GFR (MDRD) Af Amer 76, Est GFR (MDRD) Non-Af 63, BUN/Creatinine Ratio 10.1, Glucose 400 H, Calcium 9.1, Total Bilirubin 0.70, AST 15, ALT 17, Alkaline Phosphatase 133 H, Total Protein 7.1, Albumin 3.0 L, Globulin 4.1, Albumin/Globulin Ratio 0.7 L 08/30/22 14:: Lactic Acid 2.2 H* Radiology Impression Foot X-Ray 08/30/22 14:30 IMPRESSION: Healed fracture of the distal portion of the fifth metatarsal. Soft tissue laceration overlying the distal portion of the second toe. Electronically Signed: Ryan Tejeda MD at 14:47 EDT , Assessment & Plan Assessment/Plan (1) Foot pain, right: PLAN: Exam performed radiographs/vital signs/labs reviewed Will admit for dry gangrene in setting of reperfusion injury/pain w/ possible cellulitis Will plan for definitive right 2nd digit or sunday Iv unsayn 3g q6 started A1C ordered, BG 400 currently Repeat arterial studies ordered hospitalist consulted for medical management/pre op clearance Patient underwent angioplasty 08/06/22, per vascular surgery patient cleared for digital amputation discussed smoking cessation and tight BG regulation Recommend heel weightbearing on right (2) Peripheral vascular disease, unspecified: (3) Cellulitis of right foot: 08/30/22 1609 <Electronically signed by Jeison Forde DPM> Cosigner Signature (if applicable): CC: ALEK Forde; [facility]~ Signed [facility] Work Phone: [phone]) 988-560003-29-2023 History and physical note Author Dr. Forde [facility] August 30, 2022 4:09pm Note Date/Time August 30, 2022 4:0 9pm [facility] Medical Records Department [address] [place] [address] History & Physical Exam 08/30/22 1600 MR#: [id number] Acct: [id number] Name: TRENTON JACKSON Rep #:[id number] : 1970 52 From: Jeison Forde DPM PCP: [facility] St atus:REG ER Location: ED HPI - General General Date of Admission: 08/30/22 Date of Service: 08/30/22 HPI Narrative TRENTON JACKSON, is a 52 F who presents with painful reperfusion injury to right foot with dry grangrene limited to distal tuft of the right 2nd toe. Patient is a poorly controlled type II diabetic and daily smoker with recent vascular intervention via Dr. Ng on 08/06/22. Patient has noted continued pain since that procedure and was supposed to follow up with podiatry in the outpatient setting, but presented to ER today with significant pain. Patient denies any fever, chills, but notes some nausea related to her foot pain. Patient has no other complaints. [facility] Medical History CAD (coronary artery disease), rincon coronary artery CHF (congestive heart failure) GERD (gastroesophageal reflux disease) HTN (hypertension) Hx of fracture of humerus Hyperlipidemia Toe amputee Home Medications alendronate 70 mg tablet 70 mg PO WE 07/25/22 [History Last Taken Unknown] cholecalciferol (vitamin D3) 25 mcg (1,000 unit) tablet 1,000 unit PO DAILY 07/25/22 [History Last Taken Unknown] insulin glargine 100 unit/mL (3 mL) subcutaneous pen (Lantus Solostar U-100 Insulin) 10 units subcut BID 07/25/22 [History Last Taken Unknown] omeprazole 40 mg capsule,delayed release 40 mg PO DAILY #30 caps 07/25/22 [Rx Last Taken Unknown] dicyclomine 20 mg tablet 20 mg PO BID #14 tabs 08/03/22 [Rx Last Taken Unknown] atorvastatin 80 mg tablet 80 mg PO DAILY #90 tabs 08/09/22 [Rx Last Taken Unknown] calcium carbonate 500 mg calcium (1,250 mg) tablet 1 tablet PO DAILY 08/09/22 [History Last Taken Unknown] cilostazol 50 mg tablet 50 mg PO BID #60 tabs 08/09/22 [Rx Last Taken Unknown] clopidogrel 75 mg tablet (Plavix) 75 mg PO DAILY #30 tabs 08/09/22 [Rx Last Taken Unknown] desvenlafaxine succinate 25 mg tablet,extended release 24 hr 1 ea PO DAILY 08/09/22 [History Last Taken Unknown] glimepiride 4 mg tablet 1 tablet PO DAILY 08/09/22 [History Last Taken Unknown] ivermectin 3 mg tablet 12 mg PO X1 08/09/22 [History Last Taken Unknown] nitroglycerin 2 % transdermal ointment (Nitro-Bid) 0.5 inch transdermal BID #30 grams 08/09/22 [Rx Last Taken Unknown] tramadol 50 mg tablet 50 mg PO TID PRN pain #30 tabs 08/09/22 [Rx Last Taken Unknown] trazodone 50 mg tablet 50 mg PO DAILY 08/09/22 [History Last Taken Unknown] aspirin 81 mg capsule 81 mg PO DAILY 08/10/22 [History Last Taken 08/10/22] gabapentin 300 mg capsule (Neurontin) 300 mg PO TID #30 caps 08/14/22 [Rx Last Taken Unknown] oxycodone-acetaminophen 5 mg-325 mg tablet (Percocet) 1 tab PO Q6H PRN pain 3 days #12 tabs 08/14/22 [Rx Last Taken Unknown] Allergy/AdvReac Type Severity Reaction Status Date / Time latex Allergy Hives Verified 08/30/22 13:57 Family History Other Diabetes Heart disease Surgical History History of cholecystectomy Social History household members: spouse and children housing: house Smoking Status: Current every day smoker tobacco type: cigarettes alcohol intake: never what type of physical activity do you participate in: none do you feel safe at home: Yes ROS Constitutional Constitutional: Denies fatigue, fever(s) or frequent falls Eyes Eyes: Denies change in eye color, exophthalmos or nystagmus ENT HEENT: Denies dysphagia, ear discharge or mouth pain Cardiovascular Cardiovascular: Denies bluish discoloration of hand/feet, dyspnea at rest or lightheadedness Respiratory/Chest Respiratory/Chest: Denies difficulty clearing secretions, nail bed cyanosis or non-rest sleep EDS Gastrointestinal Gastrointestinal: Denies chewing difficulty, coffee ground emesis or hematemesis Genitourinary Genitourinary: Denies contractions, difficulty urinating or genital pain Musculoskeletal Musculoskeletal: Denies joint stiffness, joint swelling or stiffness Integumentary Integumentary: Denies erythema, furuncle or unusual bruising Neurologic Neurologic: Denies burning sensations, confusion or other visual disturbances Psychiatric Psychiatric: Denies change in appetite, change in libido or mood swings Vital Signs Vital Signs Vital Signs: 08/30/22 13:53 08/30/22 14:28 Temperature 98.3 F Temperature Source Oral Pulse Rate 123 H Respiratory Rate 18 Blood Pressure 136/90 H Blood Pressure Mean 105 Pulse Ox 98 Oxygen Delivery Method Room Air Room Air Weight Weight: 70.8 kg Body Mass Index (BMI) 24.4 Physical Exam Const alert and oriented x3 Constitutional Narrative: Patient has atrophic skin changes with dry stable eschar limited to distal tuft of right 2nd toe. some perinecrosis edema/erythema. No other acute signs of infection. Perforating peroneal pulse triphasic, dorsalis pedis pulse biphasic and posterior tibial pulse biphasic. No gross deformity Light touch/protective sensation diminished to bilateral feet. Results Lab / Micro Data Result Diagrams: 08/30/22 14:29 08/30/22 14:29 Labs: Laboratory Results - last 24 hr 08/30/22 14:29: WBC 8.6, RBC 5.43 H, Hgb 15.0, Hct 45.4, MCV 83.6, MCH 27.6, MCHC 33.0, RDW Std Deviation 39.0, RDW Coeff of Spencer 12.9, Plt Count 266, MPV 9.1, Immature Gran % (Auto) 0.200, Neut % (Auto) 77.4 H, Lymph % (Auto) 15.4 L, Erie % (Auto) 5.9, Eos % (Auto) 0.5, Baso % (Auto) 0.6, Absolute Neuts (auto) 6.7, Absolute Lymphs (auto) 1.33, Nucleated RBC % 0 08/30/22 14:29: PT 12.6, INR 1.0, APTT 26.7 08/30/22 14:29: Sodium 132 L, Potassium 4.0, Chloride 96 L, Carbon Dioxide 31.0,Anion Gap 5, BUN 10, Creatinine 0.99, Estim Creat Clear Calc 65.38, Est GFR (MDRD) Af Amer 76, Est GFR (MDRD) Non-Af 63, BUN/Creatinine Ratio 10.1, Glucose 400 H, Calcium 9.1, Total Bilirubin 0.70, AST 15, ALT 17, Alkaline Phosphatase 133 H, Total Protein 7.1, Albumin 3.0 L, Globulin 4.1, Albumin/Globulin Ratio 0.7 L 08/30/22 14:29: Lactic Acid 2.2 H* Radiology Impression Foot X-Ray 08/30/22 14:30 IMPRESSION: Healed fracture of the distal portion of the fifth metatarsal. Soft tissue laceration overlying the distal portion of the second toe. Electronically Signed: Ryan Tejeda MD at 14:47 EDT , Assessment & Plan Assessment/Plan (1) Foot pain, right: PLAN: Exam performed radiographs/vital signs/labs reviewed Will admit for dry gangrene in setting of reperfusion injury/pain w/ possible cellulitis Will plan for definitive right 2nd digit or sunday Iv unsayn 3g q6 started A1C ordered, BG 400 currently Repeat arterial studies ordered hospitalist consulted for medical management/pre op clearance Patient underwent angioplasty 08/06/22, per vascular surgery patient cleared for digital amputation discussed smoking cessation and tight BG regulation Recommend heel weightbearing on right (2) Peripheral vascular disease, unspecified: (3) Cellulitis of right foot: 08/30/22 1603 <Electronically signed by Jeison Forde DPM> Cosigner Signature (if applicable): CC: ALEK Forde; [facility]~ Signed [facility] Work Phone: [phone] 523-570803-29-[address] Rawls [facility] August 30, 2022 4:06pm Note Date/Time August 30, 2022 2:0 7pm [facility] Medical Records Department [address] [place] [address] Emergency Department Summary 08/30/22 MR#: [id number] Acct: [id number] Name: TRENTON JACKSON Rep #:[id number] : 1970 52 From: Jeremiah Rawls MD PCP: [facility] St atus:REG ER Location: ED HPI History of Present Illness HPI Narrative: 52-year-old female past medical history of diabetes, left partial foot amputation remotely presents with pain in her right foot and blackness to the tip of her right second toe. She relates history that she was seen by vascular surgery at the beginning of the month. She had a procedure done, and is supposed to follow-up with podiatry regarding her toe discoloration and pain. She states she does not have an appointment until the . The majority of herhistory comes from review of her prior records. In review of the EMR, she presented the beginning of the month around 06 August with discoloration of her toes and toe pain. Dr. Riccardo Ng with vascular surgery performed right superficial femoral artery angioplasty. She states although she had the procedure done, she is having continued pain in her foot and in her toes, and the tip of her second toe is black and getting worse. She also fell and skinned the area around her proximal second toe. She denies any fevers or chills. No nausea or vomiting, no other symptoms. Chief Complaint: Lower Extremity Injury [facility] Medical History CAD (coronary artery disease), rincon coronary artery CHF (congestive heart failure) GERD (gastroesophageal reflux disease) HTN (hypertension) Hx of fracture of humerus Hyperlipidemia Toe amputee Home Medications alendronate 70 mg tablet 70 mg PO WE 07/25/22 [History Last Taken Unknown] cholecalciferol (vitamin D3) 25 mcg (1,000 unit) tablet 1,000 unit PO DAILY 07/25/22 [History Last Taken Unknown] insulin glargine 100 unit/mL (3 mL) subcutaneous pen (Lantus Solostar U-100 Insulin) 10 units subcut BID 07/25/22 [History Last Taken Unknown] omeprazole 40 mg capsule,delayed release 40 mg PO DAILY #30 caps 07/25/22 [Rx Last Taken Unknown] dicyclomine 20 mg tablet 20 mg PO BID #14 tabs 08/03/22 [Rx Last Taken Unknown] atorvastatin 80 mg tablet 80 mg PO DAILY #90 tabs 08/09/22 [Rx Last Taken Unknown] calcium carbonate 500 mg calcium (1,250 mg) tablet 1 tablet PO DAILY 08/09/22 [History Last Taken Unknown] cilostazol 50 mg tablet 50 mg PO BID #60 tabs 08/09/22 [Rx Last Taken Unknown] clopidogrel 75 mg tablet (Plavix) 75 mg PO DAILY #30 tabs 08/09/22 [Rx Last Taken Unknown] desvenlafaxine succinate 25 mg tablet,extended release 24 hr 1 ea PO DAILY 08/09/22 [History Last Taken Unknown] glimepiride 4 mg tablet 1 tablet PO DAILY 08/09/22 [History Last Taken Unknown] ivermectin 3 mg tablet 12 mg PO X1 08/09/22 [History Last Taken Unknown] nitroglycerin 2 % transdermal ointment (Nitro-Bid) 0.5 inch transdermal BID #30 grams 08/09/22 [Rx Last Taken Unknown] tramadol 50 mg tablet 50 mg PO TID PRN pain #30 tabs 08/09/22 [Rx Last Taken Unknown] trazodone 50 mg tablet 50 mg PO DAILY 08/09/22 [History Last Taken Unknown] aspirin 81 mg capsule 81 mg PO DAILY 08/10/22 [History Last Taken 08/10/22] gabapentin 300 mg capsule (Neurontin) 300 mg PO TID #30 caps 08/14/22 [Rx Last Taken Unknown] oxycodone-acetaminophen 5 mg-325 mg tablet (Percocet) 1 tab PO Q6H PRN pain 3 days #12 tabs 08/14/22 [Rx Last Taken Unknown] Allergy/AdvReac Type Severity Reaction Status Date / Time latex Allergy Hives Verified 08/30/22 13:57 Family History Other Diabetes Heart disease Surgical History History of cholecystectomy Social History household members: spouse and children housing: house Smoking Status: Current every day smoker tobacco type: cigarettes alcohol intake: never what type of physical activity do you participate in: none do you feel safe at home: Yes ROS ROS ED ROS Narrative Constitutional: No fever, no chills. HEENT: No sore throat. No neck pain. No loss of vision. No rhinorrhea. Cardiovascular: No chest pain. No palpitations. No pedal edema. Respiratory: No cough, no shortness of breath. Abdominal: No abdominal pain. No nausea. No vomiting. Genitourinary: No dysuria. No hematuria. Musculoskeletal: No myalgias. Right foot pain. Blackness of the tip of second toe. Right second toe pain. Neurologic: No headaches. No dizziness. No lightheadedness. Skin: No rash. No change in color. Psychiatric: No depression. No anxiety. EXAM Physical Exam Narrative Exam Narrative: Afebrile. Vital signs noted. Nontoxic-appearing. HEENT: Normocephalic. Atraumatic. PERRL, EOMI. Neck soft and supple. No pointtenderness or step off. Cardiovascular: Regular rate and rhythm. No murmurs, rubs, or gallops appreciated. Respiratory: No tachypnea. Lungs clear to auscultation bilaterally. Gastrointestinal: Abdomen soft, nontender, with normoactive bowel sounds. No rebound or guarding. Neurological: Awake. Alert. Nonfocal, nonlateralizing. Skin: No rash. Blackness on tip of right toe, second digit, minimally extendinginto nailbed distally. Skin avulsion to phalanx of second toe, no active bleeding. Musculoskeletal: No pedal edema. Full range of motion extremities. Partial amputation of left foot. Psychiatric: Tearful on examination. Const Vital Signs: 08/30/22 13:53 08/30/22 14:28 Temperature 98.3 F Temperature Source Oral Pulse Rate 123 H Respiratory Rate 18 Blood Pressure 136/90 H Blood Pressure Mean 105 Pulse Ox 98 Oxygen Delivery Method Room Air Room Air MDM MDM MDM Narrative Medical decision making narrative: I reviewed the patient's prior outpatient records. I reviewed the note from hervisit to the vascular surgeon last week. Essentially, they have signed off stating that after the reperfusion, any damage that happened before would have to be followed up with podiatry for possible amputation of her toes. Additionally, I discussed the patient directly with Dr. Riccardo Ng, with vascular surgery, who is aware of the patient. He states that as stated in the notes, her toes appear improved, but the areas of eschar may require amputation by podiatry. In the emergency department today, I will work her up for osteomyelitis and obtain x-rays of the right foot to look for any bony destruction. I will obtain basic laboratory work to make sure she does not havea leukocytosis or wet gangrene of the toe, and also obtain a metabolic panel along with a lactic acid. She was bolused normal saline 1 L intravenously. I interpreted the x-ray of her right toe, and see no evidence of bony destruction of the second digit. I reviewed her laboratory work and she has a normal white count of 8.6, hemoglobin normal at 15.0, hematocrit 45.4, platelet count normal at 266. Coagulation studies were obtained for sepsis work-up and are normal with an INR of 1.0 and a PTT of 26.7. In review of her CMP, sodium low at 132 with chloride 96 consistent with mild dehydration, but she does have a normal BUN of 10 and creatinine of 0.99. She was bolused normal saline 1 L intravenously. Glucose is elevated at 400 consistent with her diabetes but she has a normal anion gap of 5. I do not feel that she is in diabetic ketoacidosis. She does have an elevated lactic acid of 2.2 which I think may bemore consistent with dehydration, and in review of her laboratory with her elevated glucose her sodium is low secondary to hyperosmolality/elevated glucose. She was ordered another bolus of saline for her lactic acidosis. She states that she does not have an appointment with podiatry until 2 weeks from now. Additionally, I discussed the patient with Dr. Forde, who saw the patient in the emergency department. Antibiotics were deferred to podiatry. He will admitthe patient for toe amputation and consult the hospitalist/internal medicine as needed. Disposition is admit in stable condition. History & Record Review Discussion w/independent historian: Patient Additional record(s) reviewed:: Prior outpatient record, Prior ED visit and Prior labs Lab Data Attestation: I reviewed the patient's lab results. Labs: Laboratory Results - last 24 hr 08/30/22 08/30/22 08/30/22 14:29 14:29 14:29 WBC 8.6 RBC 5.43 H Hgb 15.0 Hct 45.4 MCV 83.6 MCH 27.6 MCHC 33.0 RDW Std Deviation 39.0 RDW Coeff of Spencer 12.9 Plt Count 266 MPV 9.1 Immature Gran % (Auto) 0.200 Neut % (Auto) 77.4 H Lymph % (Auto) 15.4 L Erie % (Auto) 5.9 Eos % (Auto) 0.5 Baso % (Auto) 0.6 Absolute Neuts (auto) 6.7 Absolute Lymphs (auto) 1.33 Nucleated RBC % 0 PT 12.6 INR 1.0 APTT 26.7 Sodium 132 L Potassium 4.0 Chloride 96 L Carbon Dioxide 31.0 Anion Gap 5 BUN 10 Creatinine 0.99 Estim Creat Clear Calc 65.38 Est GFR (MDRD) Af Amer 76 Est GFR (MDRD) Non-Af 63 BUN/Creatinine Ratio 10.1 Glucose 400 H Lactic Acid Calcium 9.1 Total Bilirubin 0.70 AST 15 ALT 17 Alkaline Phosphatase 133 H Total Protein 7.1 Albumin 3.0 L Globulin 4.1 Albumin/Globulin Ratio 0.7 L 08/30/22 14:29 WBC RBC Hgb Hct MCV MCH MCHC RDW Std Deviation RDW Coeff of Spencer Plt Count MPV Immature Gran % (Auto) Neut % (Auto) Lymph % (Auto) Erie % (Auto) Eos % (Auto) Baso % (Auto) Absolute Neuts (auto) Absolute Lymphs (auto) Nucleated RBC % PT INR APTT Sodium Potassium Chloride Carbon Dioxide Anion Gap BUN Creatinine Estim Creat Clear Calc Est GFR (MDRD) Af Amer Est GFR (MDRD) Non-Af BUN/Creatinine Ratio Glucose Lactic Acid 2.2 H* Calcium Total Bilirubin AST ALT Alkaline Phosphatase Total Protein Albumin Globulin Albumin/Globulin Ratio Radiography Diagnostic Testing: Clinical Impression(s) from Imaging Studies Foot X-Ray 08/30/22 14:30 IMPRESSION: Healed fracture of the distal portion of the fifth metatarsal. Soft tissue laceration overlying the distal portion of the second toe. Electronically Signed: Ryan Tejeda MD at 14:47 EDT , Management Discussion w/another healthcare provider: [facility] (Dr. Riccardo Ng with vascular surgery, Dr. Forde with podiatry) Discharge Plan Triage Chief Complaint: Lower Extremity Injury ED Provider: Jeremiah Rawls Dx/Rx/DC Orders Clinical Impression: Dry gangrene, Foot pain, right, Atherosclerosis of right lower extremity with rest pain, Hyperglycemia, Diabetes, Lactic acidosis Prescriptions: No Action desvenlafaxine succinate 25 mg tablet extended release 24 hr 1 ea PO DAILY Label Comments: TAKE 1 TABLET BY MOUTH DAILY FOR 5 DAYS, THEN INCREASE TO 2 (TWO) TABLETS DAILY trazodone 50 mg tablet 50 mg PO DAILY glimepiride 4 mg tablet 1 tablet PO DAILY calcium carbonate 500 mg calcium (1,250 mg) tablet 1 tablet PO DAILY ivermectin 3 mg tablet 12 mg PO X1 Label Comments: take 12 mg for 1 dose then repeat evaluation in one week cilostazol 50 mg tablet 50 mg PO BID Qty: 60 2RF Nitro-Bid 2 % ointment 0.5 inch transdermal BID Qty: 30 0RF Rx Instructions: administer 2 doses/day (approx. 6 hrs apart); remove for 10-12 hrs per 24 hours atorvastatin 80 mg tablet 80 mg PO DAILY Qty: 90 3RF clopidogrel [Plavix] 75 mg tablet 75 mg PO DAILY Qty: 30 2RF tramadol 50 mg tablet 50 mg PO TID PRN (Reason: pain) Qty: 30 0RF alendronate 70 mg tablet 70 mg PO WE Label Comments: take one tablet weekly cholecalciferol (vitamin D3) 25 mcg (1,000 unit) tablet 1,000 unit PO DAILY Label Comments: TAKE 1 TABLET DAILY insulin glargine [Lantus Solostar U-100 Insulin] 100 unit/mL (3 mL) insulin pen 10 units subcut BID omeprazole 40 mg capsule,delayed release(DR/EC) 40 mg PO DAILY Qty: 30 0RF dicyclomine 20 mg tablet 20 mg PO BID Qty: 14 0RF aspirin 81 mg Capsule 81 mg PO DAILY oxycodone-acetaminophen [Percocet] 5-325 mg tablet 1 tab PO Q6H PRN (Reason: pain) 3 Days Qty: 12 0RF gabapentin [Neurontin] 300 mg capsule 300 mg PO TID Qty: 30 0RF [facility] - What to do if you have Problems For any increased pain, shortness of breath, bleeding, nausea or vomiting, chestpain, or any unexpected problems, contact your Primary Care Provider. Call [facility] ([phone]) or report to the closest Emergency Room. Call 911 if necessary. 08/30/22 1557 <Electronically signed by Jeremiah Rawls MD> Cosigner Signature (if applicable): CC: [facility] ~ Signed ADDENDUM by Dr. Jeremiah Rawls MD on 08/30/22 at 1606 EKG was obtained for presurgical testing by Dr. Forde. I interpreted the EKG as sinus tachycardia at 118 bpm without ectopy or acute ST changes. No STEMI. 08/30/22 1606<Electronically signed by Jeremiah Rawls MD> Cosigner Signature (if applicable): cc: [facility] ~* Signed [facility] Work Phone: 1(322) 471-621103-13-[address] Black [facility] August 14, 2022 4:44pm Note Date/Time August 14, 2022 2:3 8pm [facility] Medical Records Department [address] [place] [address] Emergency Department Summary 08/14/22 MR#: [id number] Acct: [id number] Name: TRENTON JACKSON Rep #:[id number] : 1970 51 From: Roberto Black MD PCP: [facility] atus:REG ER Location: ED HPI History of Present Illness Chief Complaint: Lower Extremity Injury Informant: patient Narrative Narrative: Patient comes in with pain mostly in her left foot. She states this really increased on Sunday. She had arteriogram with stenting of her right leg on . She is on tramadol but states it makes her nauseated and it does not work well. She is taking it though. She is also taking her Plavix and her aspirin. She states she had the procedure because her toes were getting very dark red and black. She states her toes look a lot better now but the pain seems to be increasing over the last few days. No fevers or chills. No other symptoms. Nothing specifically makes it better or worse. Patient is still smoking and was told the significant importance of stopping this with poor vascular flow distally. [facility] Medical History CAD (coronary artery disease), rincon coronary artery CHF (congestive heart failure) GERD (gastroesophageal reflux disease) HTN (hypertension) Hx of fracture of humerus Hyperlipidemia Toe amputee Home Medications alendronate 70 mg tablet 70 mg PO WE 07/25/22 [History Last Taken Unknown] cholecalciferol (vitamin D3) 25 mcg (1,000 unit) tablet 1,000 unit PO DAILY 07/25/22 [History Last Taken Unknown] insulin glargine 100 unit/mL (3 mL) subcutaneous pen (Lantus Solostar U-100 Insulin) 10 units subcut BID 07/25/22 [History Last Taken Unknown] omeprazole 40 mg capsule,delayed release 40 mg PO DAILY #30 caps 07/25/22 [Rx Last Taken Unknown] dicyclomine 20 mg tablet 20 mg PO BID #14 tabs 08/03/22 [Rx Last Taken Unknown] atorvastatin 80 mg tablet 80 mg PO DAILY #90 tabs 08/09/22 [Rx Last Taken Unknown] calcium carbonate 500 mg calcium (1,250 mg) tablet 1 tablet PO DAILY 08/09/22 [History Last Taken Unknown] cilostazol 50 mg tablet 50 mg PO BID #60 tabs 08/09/22 [Rx Last Taken Unknown] clopidogrel 75 mg tablet (Plavix) 75 mg PO DAILY #30 tabs 08/09/22 [Rx Last Taken Unknown] desvenlafaxine succinate 25 mg tablet,extended release 24 hr 1 ea PO DAILY 08/09/22 [History Last Taken Unknown] glimepiride 4 mg tablet 1 tablet PO DAILY 08/09/22 [History Last Taken Unknown] ivermectin 3 mg tablet 12 mg PO X1 08/09/22 [History Last Taken Unknown] nitroglycerin 2 % transdermal ointment (Nitro-Bid) 0.5 inch transdermal BID #30 grams 08/09/22 [Rx Last Taken Unknown] tramadol 50 mg tablet 50 mg PO TID PRN pain #30 tabs 08/09/22 [Rx Last Taken Unknown] trazodone 50 mg tablet 50 mg PO DAILY 08/09/22 [History Last Taken Unknown] aspirin 81 mg capsule 81 mg PO DAILY 08/10/22 [History Last Taken 08/10/22] gabapentin 300 mg capsule (Neurontin) 300 mg PO TID #30 caps 08/14/22 [Rx Last Taken Unknown] oxycodone-acetaminophen 5 mg-325 mg tablet (Percocet) 1 tab PO Q6H PRN pain 3 days #12 tabs 08/14/22 [Rx Last Taken Unknown] Allergy/AdvReac Type Severity Reaction Status Date / Time latex Allergy Hives Verified 08/14/22 13:38 Family History Other Diabetes Heart disease Surgical History History of cholecystectomy Social History household members: spouse and children housing: house Smoking Status: Current every day smoker tobacco type: cigarettes alcohol intake: never what type of physical activity do you participate in: none do you feel safe at home: Yes ROS ROS ED Constitutional Constitutional ED: Denies chills, fever(s) or subjective Eyes Eyes: Denies change in vision ENT ENT ED: Denies rhinorrhea Cardiovascular Cardiovascular: Denies chest pain or palpitations Respiratory/Chest Respiratory/Chest: Denies cough or dyspnea Gastrointestinal Gastrointestinal: Reports other Details: Patient sometimes gets nauseated with tramadol but has not had vomiting. ; Denies abdominal pain or vomiting Genitourinary Genitourinary ED: Denies dysuria Musculoskeletal Musculoskeletal: Reports other Details: Right foot pain as in history of presentillness Integumentary Reports other Details: Darkening of the toes is actually improved since the procedure. ; Denies rash Neurologic Neurologic: Reports paresthesias and other Details: She does have bilateral lower extremity paresthesias but a lot of this is not new. This is likely due to neuropathy secondary to both diabetes and vascular insufficiency. Endocrine Endocrinology: Denies polyuria Hematologic/Lymphatic Hematologic/Lymphatic: Denies lymphadenopathy Allergic/Immunologic Allergic/Immunologic ED: Denies urticaria EXAM Physical Exam Narrative Exam Narrative: Patient is awake alert laying in bed. She looks uncomfortable but does not looktoxic. HEENT shows moist mucous membranes Neck shows no stridor Lungs are clear bilaterally. Breathing is easy and unlabored and saturations are 98 to 100% on room air showing no hypoxia. Heart rate is about 100 at this time. I think this is likely due to pain as sheis in moderate pain. Abdomen is actually soft and completely nontender. No bruising up onto the abdominal wall. No mass. Bowel sounds are normal. Its not distended. No GreyTurner or [place] sign seen Extremities show gauze on the puncture site in the left groin. There is some mild bruising around it but this is not significant or unexpected considering the procedure. There is no erythema. The area is not tender. She does have a little duskiness of the tip of the toes mostly medially on the right foot. Leftof have already had transmetatarsal distal amputations. We used a Doppler ultrasound. I was surprised that we actually got excellent flow. She had triphasic sounds at her up proximal femoral artery. She had strong biphasic at popliteal and she had strong biphasic sounds both posterior tibial and dorsalis pedis. Const Vital Signs: 08/14/22 13:37 08/14/22 13:51 Temperature 98 F 97.8 F Temperature Source Temporal Oral Pulse Rate 123 H 122 H Respiratory Rate 16 18 Blood Pressure 113/89 H 142/100 H Blood Pressure Mean 97 114 Pulse Ox 99 98 Oxygen Delivery Method Room Air Room Air MDM MDM MDM Narrative Medical decision making narrative: I discussed the case directly with her surgeon, Dr. Ng. He states she was in quite a bit of her pain prior to the procedure. It is always been hard to manage her pain. The flow she has is excellent result. He had told her that although she will have better flow to try to save her toes, she may still have significant pain. She may be having waking up of some nerve pain also contributing to this. Plan will be to try to get her comfortable so we can get her home. I will get her meds for pain nausea, mild hydration, and we may startNeurontin to see if that will give her some benefit also. Blood work showed normal white count hemoglobin and platelets. Electrolytes show no marked abnormalities. No sign of dehydration. Glucose is high but she runs high all the time. I rechecked the patient. She is now laying back in bed she is much better but she still having pain. I explained that I will get her some more pain meds here. I will write for stronger pain meds to go along with Neurontin. I explained that Neurontin may need to have the dose progressively increased. Butat this time she has as good of blood flow as we can expect. The color in her toes has improved. It is just the pain that is worse. She will follow-up with Dr. Ng as scheduled Lab Data Attestation: I reviewed the patient's lab results. Labs: Laboratory Results - last 24 hr 08/14/22 08/14/22 15:11 15:11 WBC 9.7 RBC 5.16 Hgb 14.6 Hct 43.1 MCV 83.5 MCH 28.3 MCHC 33.9 RDW Std Deviation 37.5 RDW Coeff of Spencer 12.3 Plt Count 220 MPV 9.8 Immature Gran % (Auto) 0.600 Neut % (Auto) 78.3 H Lymph % (Auto) 13.9 L Erie % (Auto) 5.8 Eos % (Auto) 0.8 Baso % (Auto) 0.6 Absolute Neuts (auto) 7.6 Absolute Lymphs (auto) 1.35 Nucleated RBC % 0.2 Sodium 134 L Potassium 3.7 Chloride 101 Carbon Dioxide 27.0 Anion Gap 6 BUN 9 Creatinine 1.05 H Estim Creat Clear Calc 62.33 Est GFR (MDRD) Af Amer 71 Est GFR (MDRD) Non-Af 59 L BUN/Creatinine Ratio 8.6 L Glucose 331 H Calcium 8.9 Discharge Plan Triage Chief Complaint: Lower Extremity Injury ED Provider: Roberto Black Dx/Rx/DC Orders Clinical Impression: Foot pain, right, Peripheral vascular disease Instructions: Diabetes PAD Prescriptions: New oxycodone-acetaminophen [Percocet] 5-325 mg tablet 1 tab PO Q6H PRN (Reason: pain) 3 Days Qty: 12 0RF gabapentin [Neurontin] 300 mg capsule 300 mg PO TID Qty: 30 0RF No Action desvenlafaxine succinate 25 mg tablet extended release 24 hr 1 ea PO DAILY Label Comments: TAKE 1 TABLET BY MOUTH DAILY FOR 5 DAYS, THEN INCREASE TO 2 (TWO) TABLETS DAILY trazodone 50 mg tablet 50 mg PO DAILY glimepiride 4 mg tablet 1 tablet PO DAILY calcium carbonate 500 mg calcium (1,250 mg) tablet 1 tablet PO DAILY ivermectin 3 mg tablet 12 mg PO X1 Label Comments: take 12 mg for 1 dose then repeat evaluation in one week cilostazol 50 mg tablet 50 mg PO BID Qty: 60 2RF Nitro-Bid 2 % ointment 0.5 inch transdermal BID Qty: 30 0RF Rx Instructions: administer 2 doses/day (approx. 6 hrs apart); remove for 10-12 hrs per 24 hours atorvastatin 80 mg tablet 80 mg PO DAILY Qty: 90 3RF clopidogrel [Plavix] 75 mg tablet 75 mg PO DAILY Qty: 30 2RF tramadol 50 mg tablet 50 mg PO TID PRN (Reason: pain) Qty: 30 0RF alendronate 70 mg tablet 70 mg PO WE Label Comments: take one tablet weekly cholecalciferol (vitamin D3) 25 mcg (1,000 unit) tablet 1,000 unit PO DAILY Label Comments: TAKE 1 TABLET DAILY insulin glargine [Lantus Solostar U-100 Insulin] 100 unit/mL (3 mL) insulin pen 10 units subcut BID omeprazole 40 mg capsule,delayed release(DR/EC) 40 mg PO DAILY Qty: 30 0RF dicyclomine 20 mg tablet 20 mg PO BID Qty: 14 0RF aspirin 81 mg Capsule 81 mg PO DAILY [facility] Referrals: Riccardo Ng MD [Med Staff - Active Staff] - Keep Diandra appointment [facility] [Primary Care Provider] - Disposition Disposition: Home, Self Care What to do if you have Problems For any increased pain, shortness of breath, bleeding, nausea or vomiting, chestpain, or any unexpected problems, contact your Primary Care Provider. Call [facility] ([phone]) or report to the closest Emergency Room. Call 911 if necessary. 08/14/22 1644 <Electronically signed by Roberto Black MD> Cosigner Signature (if applicable): CC: [facility] ~ Signed [facility] Work Phone: 1(553) 242-285603-09-2023 Procedure [facility] 07-25-[address] Mcneal [facility] July 25, 2022 11:38am Note Date/Time July 25, 2022 9:21am [facility] Medical Records Department [address] [place] [address] Emergency Department Summary 07/25/22 MR#: [id number] Acct: [id number] Name: TRENTON JACKSON Rep #:[id number] : 1970 51 From: Vidal Mcneal MD PCP: Dr. Nathaly Lainez Status:REG ER Location: ED HPI History of Present Illness Chief Complaint: Nausea/Vomiting Narrative Narrative: Patient presents with nausea and vomiting and burning in her stomach. She has had quite bit of indigestion over the past few weeks, it got worse today and shehad an episode of vomiting. This also exacerbated her chronic back pain. She is denying any chest pain. She has no shortness of breath or cough. Her pain is mostly in the epigastrium but again she complains of midline back pain that is chronic and she attributes to chronic osteoarthritis and osteoporosis. She has no right upper quadrant pain. She has no lower abdominal pain. No recent fevers chills. She is denying any urinary symptoms. [facility] Medical History CAD (coronary artery disease), rincon coronary artery CHF (congestive heart failure) Diabetes mellitus, type 2 GERD (gastroesophageal reflux disease) HTN (hypertension) Hx of fracture of humerus Hyperlipidemia Toe amputee Home Medications ondansetron 4 mg disintegrating tablet 4 mg PO Q6H PRN nausea and vomiting #20 tabs 05/19/22 [Rx Last Taken Unknown] alendronate 70 mg tablet 70 mg PO WE 07/25/22 [History Last Taken Unknown] cholecalciferol (vitamin D3) 25 mcg (1,000 unit) tablet 1,000 unit PO DAILY 07/25/22 [History Last Taken Unknown] insulin glargine 100 unit/mL (3 mL) subcutaneous pen (Lantus Solostar U-100 Insulin) 10 units subcut BID 07/25/22 [History Last Taken Unknown] omeprazole 40 mg capsule,delayed release 40 mg PO DAILY #30 caps 07/25/22 [Rx Last Taken Unknown] Allergy/AdvReac Type Severity Reaction Status Date / Time latex Allergy Hives Verified 07/25/22 09:18 Family History Other Diabetes Heart disease Surgical History History of cholecystectomy Social History household members: spouse and children housing: house Smoking Status: Current every day smoker tobacco type: cigarettes alcohol intake: never what type of physical activity do you participate in: none do you feel safe at home: Yes ROS ROS ED ROS Narrative Past medical history: Reviewed, includes CAD, history of migraines, osteoporosis, diabetes, hypercholesterolemia, hypertension Medications: Reviewed Social history: Noncontributory other than that she continues to smoke Review of systems: All systems negative except as indicated General: No fever Eyes: No visual changes ENT: No upper airway congestion, normal voice Neck: No neck pain Cardiovascular: No chest pain Respiratory: No shortness of breath or cough Gastrointestinal: As in HPI Genitourinary: No dysuria Musculoskeletal: Chronic back pain as in HPI Skin: No rash Neurological: No memory loss, confusion or any focal weakness EXAM Physical Exam Narrative Exam Narrative: Physical exam General: Well nourished, Well developed, No Acute Distress Head: Normocephalic, Atraumatic Eyes: Conjunctiva not pale ENT: Moist mucous membranes Neck: Supple, Nontender, No lymphadenopathy Cardiovascular: Regular rate, Regular rhythm Respiratory: No distress, CTA bilaterally Abdomen: Soft, epigastric tenderness to palpation. No right upper quadrant pain. Negative Jimenez's. No lower abdominal pain, no guarding or rebound. Overall a benign abdominal exam. Back: Midline thoracic pain which is chronic for her. Extremities: Nontender, No edema Skin: Normal color, No rash Neurological: Alert, Normal Strength, Normal Sensation Psychological: Slightly anxious Const Vital Signs: 07/25/22 09:16 Temperature 97.4 F L Temperature Source Temporal Pulse Rate 116 H Respiratory Rate 16 Blood Pressure 145/93 H Blood Pressure Mean 110 Pulse Ox 98 Oxygen Delivery Method Room Air MDM MDM MDM Narrative Medical decision making narrative: A. Problems addressed Patient has chronic back pain which was treated with morphine, I do not believe any imaging is needed at this time for it. I thought about an x-ray but she hasknown osteoarthritis and her pain has not changed. Because of the patient's history of CAD and risk factors for acute coronary syndrome with troponin and EKG were done to rule out any kind of coronary artery disease. The work-up is unremarkable. As far as her abdominal pain I thought about pancreatitis or gallbladder disease however signs or symptoms are most consistent with gastritisfor which I treated her. She does have chronic gastritis she has some Zofran athome but does not take a PPI. With her risk factors am worried about Hogde's esophagus or adenocarcinoma I will refer her to GI for endoscopy. She knows this. I will start a PPI. B. Amount and/or complexity of the data 1. CBC CMP, lipase and troponin ordered and interpreted by me 2. Independent interpretation of test Telemetry: Heart rate is in the 110s on the monitor without ectopy C. Risk of complications and/or morbidity Differential diagnosis: See above Lab Data Labs: Laboratory Results - last 24 hr 07/25/22 07/25/22 07/25/22 09:30 09:30 10:15 WBC 8.6 RBC 5.96 H Hgb 16.9 H Hct 50.4 H MCV 84.6 MCH 28.4 MCHC 33.5 RDW Std Deviation 38.3 RDW Coeff of Spencer 12.4 Plt Count 163 MPV 10.2 Immature Gran % (Auto) 0.600 Neut % (Auto) 78.2 H Lymph % (Auto) 13.7 L Erie % (Auto) 5.2 Eos % (Auto) 1.6 Baso % (Auto) 0.7 Absolute Neuts (auto) 6.8 Absolute Lymphs (auto) 1.18 Nucleated RBC % 0 Sodium Cancelled 135 L Potassium Cancelled 4.1 Chloride Cancelled 101 Carbon Dioxide Cancelled 27.0 Anion Gap Cancelled 7 BUN Cancelled 12 Creatinine Cancelled 0.80 Estim Creat Clear Calc Cancelled 81.81 Est GFR (MDRD) Af Amer Cancelled 97 Est GFR (MDRD) Non-Af Cancelled 80 BUN/Creatinine Ratio Cancelled 14.9 Glucose Cancelled 415 H Calcium Cancelled 8.6 Total Bilirubin Cancelled 0.40 AST Cancelled 17 ALT Cancelled 15 Alkaline Phosphatase Cancelled 113 Troponin I High Sens Cancelled 10 Total Protein Cancelled 6.6 Albumin Cancelled 2.6 L Globulin Cancelled 4.0 Albumin/Globulin Ratio Cancelled 0.6 L Lipase Cancelled 104 EKG Initial EKG: Comments: Sinus rhythm with a rate of 115. Normal MN interval. QTc is 478. Nonspecific changes throughout, some LVH is present. Left axis deviation is present. Nonspecific ST changes throughout. Otherwise unremarkable EKG Interpreted by emergency doctor Discharge Plan Triage Chief Complaint: Nausea/Vomiting Other Complaint: Back Upper Extremity Injury ED Provider: Vidal Mcneal Dx/Rx/DC Orders Clinical Impression: Gastritis, Abdominal pain Instructions: ED Gastritis (Adult) Prescriptions: New omeprazole 40 mg capsule,delayed release(DR/EC) 40 mg PO DAILY Qty: 30 0RF No Action ondansetron 4 mg tablet,disintegrating 4 mg PO Q6H PRN (Reason: nausea and vomiting) Qty: 20 0RF alendronate 70 mg tablet 70 mg PO WE Label Comments: take one tablet weekly cholecalciferol (vitamin D3) 25 mcg (1,000 unit) tablet 1,000 unit PO DAILY Label Comments: TAKE 1 TABLET DAILY insulin glargine [Lantus Solostar U-100 Insulin] 100 unit/mL (3 mL) insulin pen 10 units subcut BID Primary Care Provider: Nathaly Lainez Referrals: Friend,Jeevan, [Med Staff - Active Staff] - 3-5 Days Nathaly Lainez [Primary Care Provider] - Disposition Disposition: Home, Self Care What to do if you have Problems For any increased pain, shortness of breath, bleeding, nausea or vomiting, chestpain, or any unexpected problems, contact your Primary Care Provider. Call [facility] ([phone]) or report to the closest Emergency Room. Call 911 if necessary. 07/25/22 1138 <Electronically signed by Vidal Mcneal MD> Cosigner Signature (if applicable): CC: Dr. Nathaly Lainez ~ Signed [facility] Work Phone: 1(700) 131-872401-05-2023 History of Present illness Narrative* Jerry Jones PA-C - 06/08/2022 1:30 PM EST Subjective: Trenton is here for approximately 6 week follow up for nonoperative treatment of a RIGHT closed 3 part fracture proximal humerus fracture. Pain is moderate. She has no new complaints. She states shehas not started physical therapy yet. Review of Systems Constitutional: Negative. Musculoskeletal: Positive for arthralgias. Objective: BP (!) 135/95 Pulse (!) 117 Ht 5' 6 (1.676 m) Wt 155 lb (70.3 kg) BMI 25.02 kg/m Ortho Exam Attention to the right upper extremity shows: Skin is clean, dry, and intact. Swelling mild. Ecchymosis absent. Shoulder ROM shows active FF 90, internal rotation to low back. Elbow ROM normal. Fingers flex to palm. XRAYS: 2v right shoulder redemonstrate the three-part right proximal humerus fracture in acceptableoverall alignment. There is appropriate interval healing present. Assessment 1. Closed 3-part fracture of proximal humerus, right, with routine healing, subsequent encounter Plan Orders Placed This Encounter Procedures Ambulatory referral to Physical Therapy Trenton will progress to Phase 1, 2, and 3 with with the right shoulder and can increase use of the right arm based on pain. We discussed the focus of therapy should be aggressive shoulder ROM with no ROM limits. We again reviewed the expected loss of shoulder ROM and potential function given the fracture. We discussed the natural course of injury and expectations moving forward. Trenton is agreeable with the current plan. All questions answered. Trenton was advised to contact the office with any questions or concerns. Follow up in about 6 weeks (around 07/20/2022) for Imaging. Films at next visit: 2v right shoulder Jerry Jones PA-C Orthopedic Surgery [facility] No data available for this section [facility] Evaluation noteNo assessment information available [facility] Work Phone: Evaluation note* Diagnosis Onset Date Resolution Status Atherosclerosis of right lower extremity with rest [place] n acute 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 acute [facility] Work Phone: Evaluation note* Diagnosis Onset Date Resolution Status Atherosclerosis of right lower extremity with rest [place] n acute 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 acute Atherosclerosis of lower extremity acute 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 acute Atherosclerosis of right lower extremity with rest [place] acute Cellulitis of right foot acu te Diabetes acute Dry gangrene acute Foot pain, right acute Hyperglycemia acute Lactic acidosis acute Peripheral vascular disease, unspecified acute [facility] Work Phone: Evaluation note* Diagnosis Onset Date Resolution Status Atherosclerosis of right lower extremity with rest [place] n acute 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 acute Atherosclerosis of lower extremity acute 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 acute Atherosclerosis of lower extremity acute Atherosclerosis of right lower extremity with rest [place] n acute Cellulitis of right foot acu te Diabetes acute Dry gangrene acute Foot pain, right acute Hyperglycemia acute Lactic acidosis acute Peripheral vascular disease, unspecified acute Diabetes mellitus, type 2 ch ronic [facility] Work Phone: Evaluation note* Diagnosis Onset Date Resolution Status 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 acute Atherosclerosis of right low er extremity with rest pain resolved Atherosclerosis of lower extremity acute 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 acute Atherosclerosis of lower extremity acute Diabetes acute Hyperglycemia acute Peripheral vascular disease, unspecified acute Diabetes mellitus, type 2 ch ronic Atherosclerosis of right low er extremity with rest pain resolved Cellulitis of right foot res olved Dry gangrene resolved Foot pain, right resolved Lactic acidosis resolved [facility] Work Phone: Evaluation note* Diagnosis Onset Date Resolution Status Acute dyspnea acute Chest pain acute Hypoxemia acute Pericardial effusion acute Pleural effusion acute [facility] Work Phone: Evaluation note* Diagnosis Onset Date Resolution Status Chest pain resolved Pleural effusion resolved Bilateral pleural effusion a cute Chest pain acute Hypoxia acute Acute exacerbation of CHF (congestive heart failure) chronic [facility] Work Phone: Evaluation note* Diagnosis Onset Date Resolution Status Chest pain resolved Pleural effusion resolved Bilateral pleural effusion a cute Acute exacerbation of CHF (congestive heart failure) resolved Chest pain resolved Hypoxia resolved CAD (coronary artery disease), [place]in[place] coronary artery acute Essential hypertension acute Ischemic cardiomyopathy 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 CAD (coronary artery disease), rin[place] coronary artery acute Essential hypertension acute Hypersomnolence acute Ischemic cardiomyopathy 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 [facility] Work Phone: Evaluation note* Diagnosis Onset Date Resolution Status Chest pain resolved Pleural effusion resolved Bilateral pleural effusion a cute Acute exacerbation of CHF (congestive heart failure) resolved Chest pain resolved Hypoxia resolved CAD (coronary artery disease), rincon coronary artery acute Essential hypertension acute Ischemic cardiomyopathy 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 CAD (coronary artery disease), rincon coronary artery acute Essential hypertension acute Hypersomnolence acute Ischemic cardiomyopathy 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 Epigastric pain acute GERD (gastroesophageal reflux disease) acute Acute dyspnea acute CHF (congestive heart failure) acute History of cardiomyopathy ac [place] History of coronary artery disease acute Hyperglycemia due to diabetes mellitus acute Hypoxia acute [facility] Work Phone: Evaluation note* Diagnosis Onset Date Resolution Status Bilateral pleural effusion a cute Acute exacerbation of CHF (congestive heart failure) resolved Chest pain resolved Hypoxia resolved CAD (coronary artery disease), rincon coronary artery acute Essential hypertension acute Ischemic cardiomyopathy 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 CAD (coronary artery disease), rincon coronary artery acute Essential hypertension acute Hypersomnolence acute Ischemic cardiomyopathy 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 Epigastric pain acute GERD (gastroesophageal reflux disease) acute Acute dyspnea acute CHF (congestive heart failure) acute History of cardiomyopathy ac [place] History of coronary artery disease acute Hyperglycemia due to diabetes mellitus acute Hypoxia acute [facility] Work Phone: Evaluation note* Diagnosis Onset Date Resolution Status CAD (coronary artery disease), rincon coronary artery acute Essential hypertension acute Ischemic cardiomyopathy 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 CAD (coronary artery disease), rincon coronary artery acute Essential hypertension acute Hypersomnolence acute Ischemic cardiomyopathy 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 Epigastric pain acute GERD (gastroesophageal reflux disease) acute Acute dyspnea acute CHF (congestive heart failure) acute History of cardiomyopathy ac [place] History of coronary artery disease acute Hyperglycemia due to diabetes mellitus acute Hypoxia acute Acute dyspnea acute Bilateral pleural effusion a cute CHF (congestive heart failure) acute Hypoxia acute [facility] Work Phone: Evaluation note* Diagnosis Onset Date Resolution Status Acute dyspnea acute History of cardiomyopathy ac [place] History of coronary artery disease acute Hyperglycemia due to diabetes mellitus acute Hypoxia resolved Acute dyspnea acute Bilateral pleural effusion a cute Hypoxia resolved [facility] Work Phone: Evaluation note* Diagnosis Onset Date Resolution Status Acute dyspnea acute Bilateral pleural effusion a cute Hypoxia resolved [facility] Work Phone: Evaluation note* Diagnosis Closed 3-part fracture of proximal humerus, right, with routine healing, subsequent encounter- Primary documented [facility] Author Rosaura Crane [facility] Note Date/Time September 07, 2024 10:0 0pm [facility] Medical Records Department [address] [place] [address] H&P Exam - Hospitalist [id number]/07/[id number] MR#: [id number] Acct: [id number] Name: TRENTON JACKSON Rep #:[id number] : 1970 54 From: Rosaura Crane MD PCP: RUTH Lawrence, SERVICE DESK DIRECTOR-C Statu s:ADM REHAN Location: [place] [address] HPI - General General Date of Admission: 09/07/24 Date of Service: 09/07/24 Chief Complaint: Intractable N/V, loose stools. HPI Narrative The patient is a 54 y/o F w/ PMHx: GWYN, Poorly controlled Diabetes mellitus typeII, Chronic hypotension, HTN, HLD, Orthostatic hypotension on midodrine, [place], GERD, PAD s/p peripheral PCI, L3-L5 compression fracture with intractable pain with left lower extremity radiculopathy in addition to PAD associated ischemic pain, HFrEF, Anxiety and Depression, recent admission 08/26/24-09/02/2024 with left lower extremity intractable pain secondary to compression fractures inthe L3-L5 region in addition to peripheral arterial disease with history of peripheral PCI to the left lower extremity in addition to significant diarrhea which resolved who re- presents to the [facility] ED on 09/07/24 with history of intractable nausea and emesis persisting over the last 5 days and not improving utilizing Zofran at home however it has not been significantly effective unable to take her chronic pain medication although she then reports to ED physician that she may be out of her medication with no associated abdominal pain althoughin the ED exam with generalized discomfort with palpation with last bowel movement the day prior noted to be normal but given ongoing prompted ED evaluation. Workup in the ED included T97.4, heart rate 111, BP 120/76, respiratory rate 22, 97% on room air with most recent repeat vitals heart rate 101, BP 143/79, respiratory rate 14, 99% on room air, CBC with WBC 8.4, he 1 10.8, MCV 83.2, platelet 235 without marked shift, CMP with potassium 2.5 with noted hemolysis also present, CO2 18.5, BUN/creatinine 17/0.92, GFR 74, glucose 283, calcium 6.5, hepatic profile not marked appearing, CT abdomen and pelvis with intraluminal urinary bladder air possibly secondary to recent catheterization versus emphysematous cystitis, bowel loops under distended due to lack of oral contrast with no inflammatory changes demonstrated, 2 cm indeterminate right adrenal mass. In the ED patient administered 1 L normal saline, calcium gluconate 1 g IV x 1. UA ordered but not obtained upon requested evaluation of patient. [facility] Medical History L5 vertebral fracture ESBL (extended spectrum beta-lactamase) producing bacteria infection Generalized weakness Candidiasis of breast Colitis Debility PTSD (post-traumatic stress disorder) Closed compression fracture of L3 vertebra Hypokalemia Colitis BiPAP (biphasic positive airway pressure) dependence Coronary artery disease On home oxygen therapy Rheumatoid arthritis Sleep apnea Smoker DVT (deep venous thrombosis) Seizures Amputation toe Psychiatric disorder Ischemic cardiomyopathy Diabetes type 2, uncontrolled Essential hypertension Substance abuse Alcohol abuse Depression Osteoporosis GERD (gastroesophageal reflux disease) Pulmonary embolism Myocardial infarct Pericardial effusion Hypoxemia Acute dyspnea Aftercare following surgery of the circulatory system Hx of fracture of humerus Toe amputee Hyperlipidemia CHF (congestive heart failure) CAD (coronary artery disease), rincon coronary artery Home Medications ?Medication ?Instructions ?Recorded ?Last Taken ?Type aspirin 81 mg capsule 81 mg PO DAILY heart health 08/10/22 02/01/23 History clopidogrel 75 mg tablet 75 mg PO DAILY anti platelet #30 02/03/23 02/13/24 10:00 Rx tabs 75 mg pantoprazole 40 mg tablet,delayed 40 mg PO DAILY reflu x 04/18/23 02/13/24 10:00 History release 40 mg sacubitril 24 mg-valsartan 26 mg 1 tab PO BID . 30 day s #60 tabs 05/07/23 02/13/24 22:00 Rx tablet (Entresto) 1 TAB atorvastatin 80 mg tablet 80 mg PO QHS cholesterol Unknown History gabapentin 300 mg capsule 300 mg PO TID nerve pain 02/13/24 08:00 History 300 mg insulin lispro 100 unit/mL 1 sliding scale dose subcut TIDCM 12/29/23 Unknown History subcutaneous half-unit pen glucose DIC 2%/RINKU 6%/LIDOC 2% IN 1 - 2 pump subdermal Q6H MN N FOR 02/14/24 Unknown History saltsable FEET cholecalciferol (vitamin D3) 1,250 1,250 mcg PO WE sup plement 02/14/24 Unknown History mcg (50,000 unit) tablet spironolactone 25 mg tablet 25 mg PO DAILY water pill 30 days 02/17/24 02/13/24 10:00 Rx #0 tabs 12.5 mg carvedilol 3.125 mg tablet 6.25 mg (2 x 3.125 mg) PO B ID 02/19/24 Unknown Rx blood pressure 30 days #0 tabs ergocalciferol (vitamin D2) 1,250 1,250 mcg PO We@1000 #0 caps 02/19/24 Unknown Rx mcg (50,000 unit) capsule (Vitamin D2) insulin glargine 100 unit/mL (3 20 unit (0.2 mL) subcu t QPM 30 02/19/24 02/13/24 22:00 Rx mL) subcutaneous pen (Lantus days #0 mL 24 units Solostar U-100 Insulin) escitalopram oxalate 20 mg tablet 20 mg PO DAILY depre ssion 06/29/24 Unknown History furosemide 20 mg tablet 20 mg PO DAILY water pill Unknown History midodrine 2.5 mg tablet 2.5 mg PO PRN blood pressure 06/29/24 Unknown History polyethylene glycol 3350 17 17 g PO BID PRN constipati on 06/29/24 Unknown History gram/dose oral powder (Miralax) sennosides 8.6 mg-docusate sodium 2 tab PO BID PRN con stipation 06/29/24 Unknown History 50 mg tablet (Stimulant Laxative Plus) tizanidine 4 mg tablet 4 mg PO 3XD spasm 06/29/24 U nknown History acetaminophen 500 mg tablet 1,000 mg (2 x 500 mg) PO Q 8 #0 tabs 09/02/24 Unknown Rx ondansetron 4 mg disintegrating 4 mg PO Q8H PRN PRN Na usea #10 tabs 09/05/24 Unknown Rx tablet Allergy/AdvReac Type Severity Reaction Status Date / Time latex Allergy Hives Verified 09/07/24 15:51 Family History Mother Thyroid disorder Diabetes Hypertension Grandmother Diabetes Uncle Diabetes Aunt Diabetes Other Heart disease Surgical History History of cholecystectomy History of appendectomy History of cholecystectomy Social History household members: spouse and children housing: house Smoking Status: Current every day smoker tobacco type: cigarettes alcohol intake: never substance use type: marijuana what type of physical activity do you participate in: none do you feel safe at home: Yes ROS ROS Narrative Admission Review of Systems: CONSTITUTIONAL: No weight loss, fever, chills, + weakness or fatigue. HEENT: Eyes: No visual loss, blurred vision, double vision or yellow sclerae. Ears, Nose, Throat: No hearing loss, sneezing, congestion, runny nose or sore throat. SKIN: No rash or itching, lesions, wounds except occasional + stage ecchymoses. CARDIOVASCULAR: No chest pain, chest pressure or chest discomfort, palpitations,edema, orthopnea, syncopal events. RESPIRATORY: No shortness of breath, cough or sputum, wheezing, hemoptysis. GASTROINTESTINAL: + anorexia, nausea, vomiting, diarrhea, denied abdominal pain but diffuse discomfort on palpation of the abdomen. No melena, BRBPR. GENITOURINARY: No dysuria, frequency, urgency or retention. NEUROLOGICAL: No headache, dizziness, syncope, paralysis, ataxia, numbness or tingling in the extremities, focal weakness, change in bowel or bladder control,seizure. MUSCULOSKELETAL: + muscle, back pain, joint pain or stiffness. HEMATOLOGIC: + Chronic anemia, easy bleeding/bruising. LYMPHATICS: No enlarged nodes. No history of splenectomy. PSYCHIATRIC: + History anxiety and depression. ENDOCRINOLOGIC: No reports of sweating, cold or heat intolerance. No polyuria orpolydipsia. ALLERGIES: + History of hives. Vital Signs Vital Signs Vital Signs: 09/07/24 15:52 09/07/24 17:30 09/07/24 17:54 Temperature 97.4 F L Temperature Source Oral Pulse Rate 111 H 105 H 105 H Respiratory Rate 22 H 16 12 Blood Pressure 120/76 127/66 H Blood Pressure Mean 90 83 Pulse Ox 97 96 99 Oxygen Delivery Method Room Air 09/07/24 19:00 09/07/24 20:00 09/07/24 21:00 Temperature Temperature Source Pulse Rate 109 H 106 H 101 H Respiratory Rate 12 14 10 L Blood Pressure 144/82 H 120/70 143/79 H Blood Pressure Mean 102 87 99 Pulse Ox 99 99 Oxygen Delivery Method Weight Weight: 171 lb 11.841 oz Body Mass Index (BMI) 26.9 Physical Exam Narrative Physical Examination: General: Awake, alert, oriented x 3 and cooperative, laying in ED bed, notes mildly improved following ED medications, fatigued Skin: Normal color, normal turgor, no icterus, no cyanosis except occasional stage ecchymoses. HEENT: AT/NC, EOMI, PERRLA, moderately dry MM, no carotid bruits or JVD noted. Lungs: Mildly diminished, greater bases, appropriate effort, no rales, ronchi orwheezing. Heart: Mildly tachycardic with regular rhythm; no gallop, rub audible. Abdomen: Soft, generalized discomfort with palpation of the abdomen with no rebound or guarding, hyperactive bowel sounds, no obvious distention, no obviousdiscerned HSM. Extremities: No cyanosis, clubbing, or edema. Neurological: Patient awake, alert, oriented as noted, cognitive function intact; pupils equally reactive to light and accommodation, cranial nerves grossnormal, moving all 4 extremities, no focal deficits, strength severely globally decreased secondary to acute presentation complaints Psychiatric: Affect appears flat, fatigued, no acute evidence of depressive or anxiety feelings but does have underlying history. Results Lab / Micro Data 09/07/24 17:45 09/07/24 17:45 Labs: Laboratory Results - last 24 hr 09/07/24 16:55: WBC Cancelled, Corrected WBC Cancelled, RBC Cancelled, Hgb Cancelled, Hct Cancelled, MCV Cancelled, MCH Cancelled, MCHC Cancelled, RDW Std Deviation Cancelled, RDW Coeff of Spencer Cancelled, Plt Count Cancelled, MPV Cancelled, Immature Gran % (Auto) Cancelled, Neut % (Auto) Cancelled, Lymph % (Auto) Cancelled, [place] % (Auto) Cancelled, Eos % (Auto) Cancelled, Baso % (Auto)Cancelled, Absolute Neuts (auto) Cancelled, Absolute Lymphs (auto) Cancelled, Total Counted Cancelled, Neutrophils % (Manual) Cancelled, Band Neutrophils % Cancelled, Lymphocytes % (Manual) Cancelled, Monocytes % (Manual) Cancelled, Eosinophils % (Manual) Cancelled, Basophils % (Manual) Cancelled, Metamyelocytes% Cancelled, Myelocytes % Cancelled, Promyelocytes % Cancelled, Blast Cells % Cancelled, Plasma Cell % (Manual) Cancelled, Other Cells % Cancelled, Nucleated RBC % Cancelled, Nucleated RBCs/100 WBC Cancelled, Differential Comment Cancelled, Diff Path Review Cancelled, Hypersegmented Neuts Cancelled, Atypical Lymphocytes Cancelled, Reactive Lymphocytes Cancelled, Smudge Cells Cancelled, Toxic Granulation Cancelled, Toxic Vacuolation Cancelled, Dohle Bodies Cancelled, Truman Rods Cancelled, Platelet Estimate Cancelled, Plt Morphology Comment Cancelled, RBC Morphology Cancelled 09/07/24 16:55: RBC Morphology Cancelled, Polychromasia Cancelled, HypochromasiaCancelled, Basophilic Stippling Cancelled, Anisocytosis Cancelled, Microcytosis Cancelled, Macrocytosis Cancelled, Spherocytes Cancelled, Sickle Cells Cancelled, Target Cells Cancelled, Tear Drop Cells Cancelled, Ovalocytes Cancelled, Stomatocytes Cancelled, [place] Bodies Cancelled, [place] Cells Cancelled, Bite Cells Cancelled, Crenated Cell Cancelled, Acanthocytes (Spur) Cancelled, Rouleaux Cancelled, Schistocytes Cancelled, Sodium Cancelled, Potassium Cancelled, Chloride Cancelled, Carbon Dioxide Cancelled, Anion Gap Cancelled, BUN Cancelled, Creatinine Cancelled, Estim Creat Clear Calc Cancelled, Est GFR (MDRD) Non-Af Cancelled, BUN/Creatinine Ratio Cancelled, Glucose Cancelled, Calcium Cancelled, Total Bilirubin Cancelled, AST Cancelled, ALT Cancelled, Alkaline Phosphatase Cancelled, Total Protein Cancelled, Albumin Cancelled, Globulin Cancelled, Albumin/Globulin Ratio Cancelled, Lipase Cancelled 09/07/24 17:45: WBC 8.4, RBC 3.82 L, Hgb 10.8 L, Hct 31.8 L, MCV 83.2, MCH 28.3,MCHC 34.0, RDW Std Deviation 40.4, RDW Coeff of Spencer 13.3, Plt Count 235, MPV 9.3, Immature Gran % (Auto) 0.500, Neut % (Auto) 77.8 H, Lymph % (Auto) 14.5 L, Erie % (Auto) 5.0, Eos % (Auto) 1.7, Baso % (Auto) 0.5, Absolute Neuts (auto) 6.6, Absolute Lymphs (auto) 1.22, Nucleated RBC % 0, Sodium 136, Potassium 2.5 L*, Chloride 108, Carbon Dioxide 18.5 L, Anion Gap 9, BUN 17, Creatinine 0.92, Estim Creat Clear Calc 76.05, Est GFR (MDRD) Non-Af 74, BUN/Creatinine Ratio 18.5, Glucose 283 H, Calcium 6.5 L*, Total Bilirubin 0.40, AST 19, ALT 11, Alkaline Phosphatase 85, Total Protein 4.7 L, Albumin 2.6 L, Globulin 2.1 L, Albumin/Globulin Ratio 1.3, Lipase 28, Blood Type O POSITIVE, Antibody Screen NEGATIVE Imaging Radiology Impression Abdomen/Pelvis CT 09/07/24 19:48 IMPRESSION: Intraluminal urinary bladder air, please correlate clinically with recent catheterization versus emphysematous cystitis. Most of the bowel loops are underdistended due to lack of oral contrast. No inflammatory changes are demonstrated. 2 cm indeterminate right adrenal mass, recommend MRI for further characterization. [facility] Assessment/Plan (1) Intractable nausea and vomiting: PLAN: Plan The patient is a 54 y/o F w/ PMHx: GWYN, Poorly controlled Diabetes mellitus typeII, Chronic hypotension, HTN, HLD, Orthostatic hypotension on midodrine, [place], GERD, PAD s/p peripheral PCI, L3-L5 compression fracture with intractable pain with left lower extremity radiculopathy in addition to PAD associated ischemic pain, HFrEF, Anxiety and Depression, recent admission 08/26/24-09/02/2024 with left lower extremity intractable pain secondary to compression fractures inthe L3-L5 region in addition to peripheral arterial disease with history of peripheral PCI to the left lower extremity in addition to significant diarrhea which resolved who re- presents to the [facility] ED on 09/07/24 with history of intractable nausea and emesis persisting over the last 5 days and not improving utilizing Zofran at home however it has not been significantly effective unable to take her chronic pain medication although she then reports to ED physician that she may be out of her medication with no associated abdominal pain with last bowel movement the day prior noted to be normal but given ongoing prompted ED evaluation. #1. Intractable nausea and emesis, loose stools which unfortunately is chronic for patient, questionable gastroenteritis: Will admit to PCU given electrolyte disturbances as noted, continue judicious hydration, will request C. difficile and enteric if recurrent diarrhea, administered significant regimen in the ED including Haldol thus hopefully this will assist with intractable nausea and emesis, on oral regimen schedule outpatient but may consider transition to IV given current presentation for the next 24 hours to assist with intractable nausea/emesis, will have other as needed antiemetic regimen, maintain on fall precautions, continue electrolyte correction as noted, awaiting urinalysis to make sure that patient does not have a UTI but she has no urinary symptoms at this time. PT/OT/case management consulted for discharge planning. #2. CT noted Possible emphysematous cystitis: Patient with no urinary bladder complaints, UA is pending upon request evaluation of patient, last urine culture08/01/2024 with ESBL E. coli of note greater than 100,000, will await urinalysis and if concerning appearing will initiate regimen. Procalcitonin requested. #3. Hypocalcemia, Unclear etiology: Admission calcium 6.5, calcium gluconate 1 g IV x 1 administered in the ED, will obtain ionized calcium, obtain vitamin D level (25-(OH)D, 1,25-(OH)2D), PTH, Mag, Phos, UCa levels to further assess. #4. Hypokalemia: Admission K+ 2.5, magnesium level requested, supplementation given, repeat level in AM. Hemolysis also noted thus likely even further decreased, will give an additional 20 mill equivalents is 40 mill equivalents given in the ED. #5. Right adrenal mass: CT scan with a 2 cm indeterminate right adrenal mass, will need follow-up further imaging outpatient. #6. Questionable Acute on Chronic normocytic anemia: Admission hemoglobin 10.8,MCV 83.2, hemoglobin 14 and 09/05/2024 hemoglobin 15.1, however prior to this baseline primarily 10-11 thus uncertain if these 2 in the intermediate section or falsely elevated, we will continue to trend to further elucidate. #7. Recent acute intractable left lower extremity pain secondary to PAD and lumbar compression fracture with radiculopathy: Recent admission with discharge 09/02/2024 with workup during presentation with L3-L5 compression fracture felt contributing in addition to chronic PAD with CTA with runoff with severe diseasehowever vascular surgery felt likely not the primary etiology is decent flow on evaluation purportedly and although ABIs abnormal not significantly impaired to need acute intervention per vascular surgery report status post previous PCI to the left lower extremity, continue aspirin, Plavix, statin, hypertensive regimen, oxycodone, gabapentin with adjustments as needed. #8. Hypertension: Continue home regimen including Entresto, spironolactone, Coreg, Lasix with hold parameters as needed, PRN hydralazine. #9. Hyperlipidemia: We will continue patient on statin therapy. #10. Orthostatic hypotension: Noted history, on low-dose midodrine noted to only be as needed but will clarify to be certain. #11. Chronic Kidney Disease Stage II versus stage III per GFR trending, tends to vacillate this uncertain: Admission BUN/Cr 17/0.92, GFR 74, baseline renal function 0.6-0.9, repeat BMP in AM. #12. HFrEF: 09/02/2024 echo with LVEF 30%, normal LV size, regional wall motion abnormalities, LV systolic function improved from previous. Given history will very judiciously hydrate only if necessary, continue aspirin, Plavix, statin, Entresto, Coreg, spironolactone, Lasix home regimen. Monitor daily weights. #13. Poorly controlled diabetes mellitus type II with chronic neuropathy: Recent hemoglobin A1c 02/15/2024 9.8%, hold oral home regimen, continue home insulin regimen, clears until improving, accu checks w/ ISS, continue home gabapentin regimen. #14. Anxiety and depression: Will continue patient home Haldol, escitalopram home regimen. #15. Tobacco Abuse: Encouraged cessation, inpatient consultation per RT, NR if desired. #16. GERD with history of esophagitis: Will continue PPI temporally transition to IV PPI given intractable nausea and emesis until improving. Patient has per last admission plan follow-up with GI outpatient for follow-up EGD and colonoscopy once clinically appropriate. #17. GWYN: Will hold PAP therapy given N/V, may add once resolved. #18. DVT prophylaxis: Lovenox. #19. CODE status: Patient HCPOA and living will are not in place but she notes her mother and daughter would be her medical decision makers if necessary. Discussed CODE status at length including difference between FULL code, DNR-CCA and DNR-CC status. Following discussions about the differences in these status, requested Full Code status. Advanced Care Planning Face to Face Time: 16 minutes. Charges/Coding Visit Charges Inpatient E&M: 31907 Init Hosp L3 Procedures Hospitalists Procedures: 20549 Advncd Care Plan 30 Min 09/07/24 2200 <Electronically signed by Rosaura Crane MD> Cosigner Signature (if applicable): CC: [facility] SERVICE DESK DIRECTOR-C Zohreh Mckeon; Dr. Rosaura Crane MD~ Signed [facility] Work Phone: Hospital Discharge instructions Additional Instructions Continue oral fluids. Zofran as needed. Take pain medicines as prescribed for your fracture. Future prescriptions for pain medicines need to be provided by your PCP or your specialist. Glucose is 402, normal gap, you are not in DKA. Take your medications at home. Follow-up with your doctor.[facility] Work Phone: Hospital Discharge instructions Additional Instructions Hip x-ray negative. Labs are stable. Follow-up with your doctor.[facility] Work Phone: Hospital Discharge instructions Additional Instructions I given you a month supply of gabapentin. You will take 300 mg twice a day for the first 3 days, then you may continue 300 mg 3 times a day for the remainder of the prescription. You need to follow-up with your PCP, I also gave you pain management.[facility] Work Phone: Hospital Discharge instructions Additional Instructions Plenty of fluids and rest. Slowly increase your diet as tolerated. Zofran as needed for nausea. You may swallow or let it dissolve under your tongue. Follow-up with your primary care provider if not improving or return if feeling worse or unable to keep fluids down. Tylenol for hip and knee pain. Follow-up if not improving.[facility] Work Phone: Hospital Discharge instructions Additional Instructions Continue your previous pain medications. Your postoperative wound does not appear to be acutely infected.[facility] Work Phone: Hospital Discharge instructions Additional Instructions Reviewed your MRI and patient recently. Stable L3 fracture, stable L5 fracture. Noted disc herniation L3-L4, this is likely culprit of your pain on your left leg. Continue your gabapentin 300 g 3 times a day as you have at home. tabulating supervisor your oxycodone that was written on discharge to take as needed. Use Zofran as needed. Follow-up with pain management and orthopedic spine for outpatient evaluation. Monitor your glucose with your insulin.[facility] Work Phone: Hospital Discharge instructions Additional Instructions Workup negative for DKA. continue toAvoid marijuana use. Use your nausea medicines as needed. Follow-up was given.[facility] Work Phone: Hospital Discharge instructionsAdditional Instructions You were given IV fluids and insulin to treat your high blood sugar. I think the pain you have in your legs is neuropathy. This means it is nerve pain. It is treated with medications like gabapentin. I recommend you talk to your prescribing doctor for further care. [facility] Work Phone: Reason for referral (narrative)* Consultation (Routine) - Pending Review Specialty Diagnoses / Procedures Referred By Angelo sapp Referred To Contact Physical Therapy Diagnoses Closed 3-part fracture of proximal humerus, right, with routine healing, subsequent encounter Procedures [place] OFFICE/OUTPATIENT NEW HIGH MDM 60-74 MINUTES Jerry Jones PA-C [address] [place] [id number] Referral ID Status Reason Start Date Expiration Date Visits Requested Visits Authorized [id number] Pending Review Specialty Services Required 06/08/2022 12/05/2022 99 99 [facility] for referral (narrative)No reason for referral information availableW[facility] Work Phone: Summary Purpose Family History No Family History Records Found Relationship Condition Age at Onset Recorded Date/T sharron Not Specified Diabetes mellitus Unknown Cardiac disease Unknown Relationship Condition Age at Onset Recorded Date/T sharron Not Specified Cardiac disease Unknown Relationship Condition Age at Onset Recorded Date/T sharron Not Specified Cardiac disease Unknown mother Disorder of thyroid Unknown Diabetes mellitus Unknown Hypertension Unknown grandmother Diabetes mellitus Unknown uncle Diabetes mellitus Unknown aunt Diabetes mellitus Unknown Advance Directives No Advanced Directives Records Found Advance Directive Response Recorded Date/ Time Advance Directives No February 01, 2016 6:21am Living Will No March 27 10:33am Power of [employer] No March 27, 2022 10:33am Advance Directive Response Recorded Date/ Time Advance Directives No February 01, 2016 5:21am Living Will No April 17 4:47pm Power of [employer] No April 17, 2022 4:47pm Advance Directive Response Recorded Date/ Time Advance Directives No February 01, 2016 5:21am Living Will No April 18 022 3:36pm Power of [employer] No April 18, 2022 3:36pm Advance Directive Response Recorded Date/ Time Advance Directives No February 01, 2016 5:21am Living Will No May 09 9:47pm Power of [employer] No May 09, 2022 9:47pm Advance Directive Response Recorded Date/ Time Advance Directives No February 01, 2016 5:21am Living Will No May 19 5:31pm Power of [employer] No Jasiel 16th, 2022 5:31pm Advance Directive Response Recorded Date/ Time Advance Directives No February 01, 2016 5:21am Living Will No July 25, 2 023 9:18am Power of [employer] No July 25, 2022 9:18am Advance Directive Response Recorded Date/ Time Advance Directives No February 01, 2016 5:21am Living Will No August 03, 2022 12:21pm Power of [employer] No August 03 12:21pm Advance Directive Response Recorded Date/ Time Advance Directives No August 10 7:07am Living Will No August 10, 2022 7:07am Power of [employer] No August 10 7:07am Advance Directive Response Recorded Date/ Time Advance Directives No August 10 8:07am Living Will No August 14, 2022 1:53pm Power of [employer] No August 14 1:53pm Advance Directive Response Recorded Date/ Time Advance Directives No August 10 8:07am Living Will No August 30, 2022 4:44pm Power of [employer] No August 30 4:44pm Advance Directive Response Recorded Date/ Time Advance Directives No August 10 8:07am Living Will No September 05, 2022 12:31pm Power of [employer] No September 05 12:31pm Advance Directive Response Recorded Date/ Time Advance Directives No August 10 8:07am Living Will No September 09, 2022 7:25pm Power of [employer] No September 09 7:25pm Advance Directive Response Recorded Date/ Time Advance Directives No August 10 8:07am Living Will No September 11, 2022 3:01pm Power of [employer] No September 11 3:01pm Advance Directive Response Recorded Date/ Time Advance Directives No August 10 8:07am Living Will No September 18, 2022 2:32pm Power of [employer] No September 18 2:32pm Advance Directive Response Recorded Date/ Time Advance Directives No August 10 8:07am Living Will No October 01, 2022 11:14am Power of [employer] No October 01 11:14am Advance Directive Response Recorded Date/ Time Advance Directives No August 10 8:07am Living Will No January 01, 2023 12:13pm Power of [employer] No January 01 12:13pm Advance Directive Response Recorded Date/ Time Advance Directives No August 10 8:07am Living Will No January 01, 2023 5:09pm Power of [employer] No January 01 5:09pm Advance Directive Response Recorded Date/ Time Advance Directives No August 10 8:07am Living Will No February 02, 2 023 11:25am Power of [employer] No February 02, 2023 11:25am Advance Directive Response Recorded Date/ Time Advance Directives No August 10 8:07am Living Will No February 02, 2 023 8:41pm Power of [employer] No February 02, 2023 8:41pm Advance Directive Response Recorded Date/ Time Advance Directives No August 10 7:07am Living Will No February 02, 2 023 7:41pm Power of [employer] No February 02, 2023 7:41pm Advance Directive Response Recorded Date/ Time Advance Directives No August 10 7:07am Living Will No May 03, 2 023 1:37pm Power of [employer] No May 03, 2023 1:37pm Advance Directive Response Recorded Date/ Time Advance Directives No August 10 7:07am Living Will No May 03, 2 023 5:41pm Power of [employer] No May 03, 2023 5:41pm Advance Directive Response Recorded Date/ Time Advance Directives No August 10 7:07am Living Will No May 22, 2 023 2:33pm Power of [employer] No May 22, 2023 2:33pm Advance Directive Response Recorded Date/ Time Advance Directives No August 10 7:07am Living Will No June 13 3:00am Power of [employer] No June 13, 2023 3:00am Advance Directive Response Recorded Date/ Time Advance Directives No August 10 7:07am Living Will No June 19 9:35am Power of [employer] No June 19, 2023 9:35am Advance Directive Response Recorded Date/ Time Advance Directives No August 10 8:07am Living Will No September 02, 2023 7:42am Power of [employer] No September 01 7:42am Date Activated Date Inactivated Comments 09/23/2018 2:23 PM 09/25/2018 7:05 PM Question Answer Comments Full Code Order Discussed With: Patient Date Activated Date Inactivated Comments 07/20/2018 4:47 PM 07/21/2018 3:34 PM Question Answer Comments Full Code Order Discussed With: Patient Advance Directive Response Recorded Date/ Time Advance Directives No August 10 8:07am Living Will No October 15, 2023 5 :10pm Power of [employer] No October 15, 2023 5:10pm Advance Directive Response Recorded Date/ Time Living Will No April 25 024 5:40pm Do you have a Healthcare Power of [employer] Manager? No April 25, 2024 5:40pm Living Will No June 29 10:04pm Do you have a Healthcare Power of [employer]? No June 29, 2024 10:04pm Living Will No August 26, 2024 10:15am Do you have a Healthcare Power of [employer]? No August 26, 2024 10:15am Living Will No August 01 025 2:53pm Do you have a Healthcare Power of [employer]? No August 01, 2024 2:53pm Advance Directives No August 10 8:07am Advance Directive Response Recorded Date/ Time Living Will No June 29 10:04pm Do you have a Healthcare Power of [employer]? No June 29, 2024 10:04pm Living Will No August 26, 2024 8:30pm Do you have a Healthcare Power of [employer]? No August 26, 2024 8:30pm Living Will No August 01 025 2:53pm Do you have a Healthcare Power of [employer]? No August 01, 2024 2:53pm Advance Directives No August 10 8:07am Advance Directive Response Recorded Date/ Time Living Will No June 29 10:04pm Do you have a Healthcare Power of [employer] Manager? No June 29, 2024 10:04pm Living Will No August 26, 2024 8:30pm Do you have a Healthcare Power of [employer]? No August 26, 2024 8:30pm Living Will No August 01, 2 025 2:53pm Do you have a Healthcare Power of [employer]? No August 01, 2024 2:53pm Living Will No September 05, 2024 10:31am Do you have a Healthcare Power of [employer]? No September 05, 2024 10:31am Advance Directives No August 10 8:07am Advance Directive Response Recorded Date/ Time Living Will No June 29 10:04pm Do you have a Healthcare Power of [employer]? No June 29, 2024 10:04pm Living Will No August 26, 2024 8:30pm Do you have a Healthcare Power of [employer] Manager? No August 26, 2024 8:30pm Living Will No September 07, 2024 3:55pm Do you have a Healthcare Power of [employer] Manager? No September 07, 2024 3:55pm Living Will No August 01, 2 025 2:53pm Do you have a Healthcare Power of [employer] Manager? No August 01, 2024 2:53pm Living Will No September 05, 2024 10:31am Do you have a Healthcare Power of [employer]? No September 05, 2024 10:31am Advance Directives No August 10 8:07am Advance Directive Response Recorded Date/ Time Living Will No June 29 10:04pm Do you have a Healthcare Power of [employer]? No June 29, 2024 10:04pm Living Will No August 26, 2024 8:30pm Do you have a Healthcare Power of [employer] Manager? No August 26, 2024 8:30pm Living Will No September 07, 2024 10:21pm Do you have a Healthcare Power of [employer] Manager? No September 07, 2024 10:21pm Living Will No August 01, 2 025 2:53pm Do you have a Healthcare Power of [employer] Manager? No August 01, 2024 2:53pm Living Will No September 05, 2024 10:31am Do you have a Healthcare Power of [employer] Manager? No September 05, 2024 10:31am Advance Directives No August 10 8:07am Advance Directive Response Recorded Date/ Time Living Will No June 29 10:04pm Do you have a Healthcare Power of [employer] Manager? No June 29, 2024 10:04pm Living Will No August 26, 2024 8:30pm Do you have a Healthcare Power of [employer] Manager? No August 26, 2024 8:30pm Living Will No September 07, 2024 10:21pm Do you have a Healthcare Power of [employer] Manager? No September 07, 2024 10:21pm Living Will No September 21, 2024 12:25pm Do you have a Healthcare Power of [employer] Manager? No September 21, 2024 12:25pm Living Will No August 01, 025 2:53pm Do you have a Healthcare Power of [employer] Manager? No August 01, 2024 2:53pm Living Will No September 05, 2024 10:31am Do you have a Healthcare Power of [employer] Manager? No September 05, 2024 10:31am Advance Directives No August 10 8:07am Advance Directive Response Recorded Date/ Time Living Will No June 29 10:04pm Do you have a Healthcare Power of [employer] Manager? No June 29, 2024 10:04pm Living Will No August 26, 2024 8:30pm Do you have a Healthcare Power of [employer] Manager? No August 26, 2024 8:30pm Living Will No September 07, 2024 10:21pm Do you have a Healthcare Power of [employer] Manager? No September 07, 2024 10:21pm Living Will No September 21, 2024 12:25pm Do you have a Healthcare Power of [employer] Manager? No September 21, 2024 12:25pm Do you have a Healthcare Power of [employer] Manager? No September 29, 2024 10:26am Living Will No August 01 2:53pm Do you have a Healthcare Power of [employer] Manager? No August 01, 2024 2:53pm Living Will No September 05, 2024 10:31am Do you have a Healthcare Power of [employer] Manager? No September 05, 2024 10:31am Advance Directives No August 10 8:07am Advance Directive Response Recorded Date/ Time Living Will No August 26, 2024 8:30pm Do you have a Healthcare Power of [employer] Manager? No August 26, 2024 8:30pm Living Will No September 07, 2024 10:21pm Do you have a Healthcare Power of [employer] Manager? No September 07, 2024 10:21pm Living Will No September 21, 2024 12:25pm Do you have a Healthcare Power of [employer] Manager? No September 21, 2024 12:25pm Do you have a Healthcare Power of [employer] Manager? No September 29, 2024 10:26am Living Will No September 05, 2024 10:31am Do you have a Healthcare Power of [employer] Manager? No September 05, 2024 10:31am Do you have a Healthcare Power of [employer] Manager? No December 12, 2024 4:18pm Advance Directives No August 10 8:07am Hospital Course Note HNO ID: [id number] Author: Paige Yao) Lizz Service: Hospital Medicine Author Type: Physician Type: Discharge Summaries Filed: 12/22/2017 8:56 PM Note Text: DISCHARGE SUMMARY PATIENT NAME: Trenton Jackson ADMISSION DATE: 11/30/2017 DISCHARGE DATE: - December 04, 2017 Addendum: Correction of discharge date above from 12/06/17 to 12/04/2014. Dex Handy MD December 22, 2017 8:56 PM Attending Physician: Dex Handy MD Principle Diagnosis: Chest pain with angina, Cardiomyopathy with EF 30-35% Secondary Diagnosis: ACTIVE PROBLEM LIST Abdominal Pain, Other Specified Site Essential Hypertension Pericardial Cyst Pericardial Effusion Depression Anxiety Right-Sided Low Back Pain With Right-Sided Sciatica Type 2 Diabetes Mellitus With Complication, With Long-Term Current Use of Insulin (Hcc) Chest Pain Dyslipidemia Chest Pain At Rest Cardiomyopathy (Hcc) Smoker Leucocytosis Erythrocytosis Hypotension Unstable Angina (Hcc) Operations During Hospitalization: none Imaging during hospita (more content not included)... Note HNO ID: [id number] Author: Rosi Morrow Service: Hospital Medicine Author Type: Physician Type: Discharge Summaries Filed: 06/12/2018 6:04 PM Note Text: DISCHARGE SUMMARY PATIENT NAME: Trenton Jackson Code Status: Not on file Highest Readmission Risk Score: 31 The 30 day readmissions risk score is derived from an internally validated risk model which evaluates patient level characteristics, utilization history, medication orders and lab results up until the day of discharge. Patients with a score of 40 or above are considered highest risk for readmission. Specific patient level drivers will be listed at the bottom of the summary. Admission Information Admission Information ADMIT DATE: 06/08/2018 DISCHARGE DATE: 06/12/2018 MY DOCTORS AND MEDICAL TEAM: My Main Hospital Doctor: Fredo Morrow Primary Care Provider: Uziel Conteh MD My Medical Team Members: Treatment Team: Attending Provider: Fredo Morrow Consulting: Jasvir Kumar MY CONDITION AT DISCHARGE: Sta (more content not included)... Note HNO ID: [id number] Author: Maria Isabel Sherman Service: Clinical Cardiology Author Type: Physician Type: Brief Op Note Filed: 12/04/2017 12:31 PM Note Text: CARDIAC/VASCULAR LAB POST PROCEDURE NOTE SERVICE DATE: 12/04/2017 SERVICE TIME: 12:29 PM PREOPERATIVE DIAGNOSIS: * No pre-op diagnosis entered * POSTOPERATIVE DIAGNOSIS: single vessel CAD CAD PRESENTATION: Unstable angina ANGINA CLASS WITHIN TWO WEEKS: CCSIII STRESS TEST PERFORMED: Yes, Stress Testing with SPECT MPI; Positive HEART FAILURE WITHIN TWO WEEKS: No PROCEDURE PERFORMED: Left Heart Catheterization Left Ventricular Ejection Fraction: 30% Left Ventricular Wall Motion: Abnormal Estimated Blood Loss: 5 ml Access Site: Arterial: Radial, Right Venous Access Site: none Closure: vasc band PROCEDURE FINDINGS: Dominance: Right Left Main: normal Left Anterior Descending: Severe diffuse disease prox and mid, with the remainder of the vessel small vessel Circumflex: normal Right Coronary Artery: normal Peripheral Findings: normal Complica (more content not included)... Note Send Summary: Discharge Summ kem Providers: Provider RoleProvider Name ReferringCorrect Info, Needed DeanAl-Quang Lou PrimaryRequired, No Pcp Note Recipients: Correct Info, Needed, MD Required, No Pcp, MD Discharge: Summary: Admission Date: .29-Sep-2019 20:16:00 Discharge Date: 30-Sep-2019 Attending Physician at Discharge: Sheila Goodson Admission Reason: Chest Pain Final Discharge Diagnoses: pleuritic chest pain likely 2/2 herpes zoster Procedures: none Condition at Discharge: Satisfactory Disposition at Discharge: .Home Vital Signs: T [id number] [id number]% Date/Time09/29 11: 11: 11: 11: 11:35 Range(36.1C - 36.1C ) (91 - 91 ) (17 - 17 ) (117 - 117 )/ (76 - 76 ) (97% - 97% ) Physical Exam: Physical Exam: Constitutional: Awake, alert x 3, comfortable on bed Eyes: PERRL, no scleral icterus ENMT: moist MM, no lesion, no oropharyngeal erythema Head/Neck: No JVD Respiratory/Thorax: CTAB, no wheezing or crackles Cardiovascular: no erythema or rash over (more content not included)... Procedure Findings Note HNO ID: [id number] Author: Maria Isabel Sherman Service: Clinical Cardiology Author Type: Physician Type: Brief Op Note Filed: 12/04/2017 12:31 PM Note Text: CARDIAC/VASCULAR LAB POST PROCEDURE NOTE SERVICE DATE: 12/04/2017 SERVICE TIME: 12:29 PM PREOPERATIVE DIAGNOSIS: * No pre-op diagnosis entered * POSTOPERATIVE DIAGNOSIS: single vessel CAD CAD PRESENTATION: Unstable angina ANGINA CLASS WITHIN TWO WEEKS: CCSIII STRESS TEST PERFORMED: Yes, Stress Testing with SPECT MPI; Positive HEART FAILURE WITHIN TWO WEEKS: No PROCEDURE PERFORMED: Left Heart Catheterization Left Ventricular Ejection Fraction: 30% Left Ventricular Wall Motion: Abnormal Estimated Blood Loss: 5 ml Access Site: Arterial: Radial, Right Venous Access Site: none Closure: vasc band PROCEDURE FINDINGS: Dominance: Right Left Main: normal Left Anterior Descending: Severe diffuse disease prox and mid, with the remainder of the vessel small vessel Circumflex: normal Right Coronary Artery: normal Peripheral Findings: normal Complica (more content not included)... Chief Complaint and Reason for Visit Chief Complaint general illness Chief Complaint general illness HEADACHE Chief Complaint general illness HEADACHE UPPER EXTREMITY Chief Complaint general illness HEADACHE UPPER EXTREMITY right shoulder Rm 3 xray abd pain Chief Complaint general illness HEADACHE UPPER EXTREMITY right shoulder Rm 3 xray abd pain ABD PAIN, NAUSEA/VOMITTING Chief Complaint general illness HEADACHE UPPER EXTREMITY right shoulder Rm 3 xray abd pain ABD PAIN, NAUSEA/VOMITTING 3 PART FX RIGHT HUMERUS / RX HERE SCREENING N/V, BACK PAIN, ARM PAIN Chief Complaint HEADACHE UPPER EXTREMITY right shoulder Rm 3 xray abd pain ABD PAIN, NAUSEA/VOMITTING 3 PART FX RIGHT HUMERUS / RX HERE SCREENING N/V, BACK PAIN, ARM PAIN CHEST PAIN Chief Complaint HEADACHE UPPER EXTREMITY right shoulder Rm 3 xray abd pain ABD PAIN, NAUSEA/VOMITTING 3 PART FX RIGHT HUMERUS / RX HERE SCREENING N/V, BACK PAIN, ARM PAIN CHEST PAIN 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 Chief Complaint abd pain ABD PAIN, NAUSEA/VOMITTING 3 PART FX RIGHT HUMERUS / RX HERE SCREENING N/V, BACK PAIN, ARM PAIN [facility] FU POSSIBLE INTERVENTION POSSIBLE INTERVENTION FOOT PAIN CLAUDICATION F/U GANGRENE RIGH 2ND TOW Reason for Visit Atherosclerosis of r ight lower extremity with rest pain 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 Atherosclerosis of lower extremity 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 Atherosclerosis of right lower extremity with rest pain Cellulitis of right foot Diabetes Dry gangrene Foot pain, right Hyperglycemia Lactic acidosis Peripheral vascular disease, unspecified Chief Complaint abd pain ABD PAIN, NAUSEA/VOMITTING 3 PART FX RIGHT HUMERUS / RX HERE SCREENING N/V, BACK PAIN, ARM PAIN [facility]ST [facility]IN [facility] FU POSSIBLE INTERVENTION POSSIBLE INTERVENTION FOOT PAIN CLAUDICATION F/U GANGRENE RIGH 2ND TOE GANGRENE RIGH 2ND TOW GANGRENE RIGH 2ND TOE GANGRENE RIGH 2ND TOE GANGRENE RIGH 2ND TOE Reason for Visit Atherosclerosis of r ight lower extremity with rest pain 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 Atherosclerosis of lower extremity 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 Atherosclerosis of lower extremity Atherosclerosis of right lower extremity with rest pain Cellulitis of right foot Diabetes Dry gangrene Foot pain, right Hyperglycemia Lactic acidosis Peripheral vascular disease, unspecified Diabetes mellitus, type 2 Chief Complaint abd pain ABD PAIN, NAUSEA/VOMITTING 3 PART FX RIGHT HUMERUS / RX HERE SCREENING N/V, BACK PAIN, ARM PAIN CHEST PAIN [facility]ST[facility] Hospital FU POSSIBLE INTERVENTION POSSIBLE INTERVENTION FOOT PAIN CLAUDICATION F/U GANGRENE RIGH 2ND TOE GANGRENE RIGH 2ND TOW GANGRENE RIGH 2ND TOE GANGRENE RIGH 2ND TOE GANGRENE RIGH 2ND TOE TOE Reason for Visit Atherosclerosis of r ight lower extremity with rest pain 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 Atherosclerosis of lower extremity 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 Atherosclerosis of lower extremity Atherosclerosis of right lower extremity with rest pain Cellulitis of right foot Diabetes Dry gangrene Foot pain, right Hyperglycemia Lactic acidosis Peripheral vascular disease, unspecified Diabetes mellitus, type 2 Chief Complaint ABD PAIN, NAUSEA/VOM ITTING 3 PART FX RIGHT HUMERUS / RX HERE SCREENING N/V, BACK PAIN, ARM PAIN CHEST PAIN CONSTIPATION Hospital FU POSSIBLE INTERVENTION POSSIBLE INTERVENTION FOOT PAIN CLAUDICATION F/U GANGRENE RIGH 2ND TOE GANGRENE RIGH 2ND TOW GANGRENE RIGH 2ND TOE GANGRENE RIGH 2ND TOE GANGRENE RIGH 2ND TOE TOE S/P R SFA ANGIOPLASTY [place] Reason for Visit 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 Atherosclerosis of right lower extremity with rest pain Atherosclerosis of lower extremity 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 Atherosclerosis of lower extremity Diabetes Hyperglycemia Peripheral vascular disease, unspecified Diabetes mellitus, type 2 Atherosclerosis of right lower extremity with rest pain Cellulitis of right foot Dry gangrene Foot pain, right Lactic acidosis Chief Complaint ABD PAIN, NAUSEA/VOM ITTING 3 PART FX RIGHT HUMERUS / RX HERE SCREENING N/V, BACK PAIN, ARM PAIN CHEST PAIN CONSTIPATION Hospital FU POSSIBLE INTERVENTION POSSIBLE INTERVENTION FOOT PAIN CLAUDICATION F/U GANGRENE RIGH 2ND TOE GANGRENE RIGH 2ND TOW GANGRENE RIGH 2ND TOE GANGRENE RIGH 2ND TOE GANGRENE RIGH 2ND TOE TOE S/P R SFA ANGIOPLASTY [place] ABD PAIN N/V/ Reason for Visit 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 Atherosclerosis of right lower extremity with rest pain Atherosclerosis of lower extremity 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 Atherosclerosis of lower extremity Diabetes Hyperglycemia Peripheral vascular disease, unspecified Diabetes mellitus, type 2 Atherosclerosis of right lower extremity with rest pain Cellulitis of right foot Dry gangrene Foot pain, right Lactic acidosis Chief Complaint 3 PART FX RIGHT KARELY CHRISTOPHER / RX HERE SCREENING N/V, BACK PAIN, ARM PAIN CHEST PAIN CONSTIPATION Hospital FU POSSIBLE INTERVENTION POSSIBLE INTERVENTION FOOT PAIN CLAUDICATION F/U GANGRENE RIGH 2ND TOE GANGRENE RIGH 2ND TOW GANGRENE RIGH 2ND TOE GANGRENE RIGH 2ND TOE GANGRENE RIGH 2ND TOE TOE S/P R SFA ANGIOPLASTY [place] ABD PAIN N/V/ Reason for Visit 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 Atherosclerosis of right lower extremity with rest pain Atherosclerosis of lower extremity 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 Atherosclerosis of lower extremity Diabetes Hyperglycemia Peripheral vascular disease, unspecified Diabetes mellitus, type 2 Atherosclerosis of right lower extremity with rest pain Cellulitis of right foot Dry gangrene Foot pain, right Lactic acidosis Chief Complaint 3 PART FX RIGHT KARELY CHRISTOPHER / RX HERE SCREENING N/V, BACK PAIN, ARM PAIN CHEST PAIN CONSTIPATION Hospital FU POSSIBLE INTERVENTION POSSIBLE INTERVENTION FOOT PAIN CLAUDICATION F/U GANGRENE RIGH 2ND TOE GANGRENE RIGH 2ND TOW GANGRENE RIGH 2ND TOE GANGRENE RIGH 2ND TOE GANGRENE RIGH 2ND TOE TOE S/P R SFA ANGIOPLASTY NV ABD PAIN N/V/ nusea Reason for Visit 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 Atherosclerosis of right lower extremity with rest pain Atherosclerosis of lower extremity 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 Atherosclerosis of lower extremity Diabetes Hyperglycemia Peripheral vascular disease, unspecified Diabetes mellitus, type 2 Atherosclerosis of right lower extremity with rest pain Cellulitis of right foot Dry gangrene Foot pain, right Lactic acidosis Chief Complaint 3 PART FX RIGHT KARELY CHRISTOPHER / RX HERE SCREENING N/V, BACK PAIN, ARM PAIN CHEST PAIN CONSTIPATION Hospital FU POSSIBLE INTERVENTION POSSIBLE INTERVENTION FOOT PAIN CLAUDICATION F/U GANGRENE RIGH 2ND TOE GANGRENE RIGH 2ND TOW GANGRENE RIGH 2ND TOE GANGRENE RIGH 2ND TOE GANGRENE RIGH 2ND TOE TOE S/P R SFA ANGIOPLASTY [place] ABD PAIN N/V/ nusea CONSTIPATION Reason for Visit 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 Atherosclerosis of right lower extremity with rest pain Atherosclerosis of lower extremity 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 Atherosclerosis of lower extremity Diabetes Hyperglycemia Peripheral vascular disease, unspecified Diabetes mellitus, type 2 Atherosclerosis of right lower extremity with rest pain Cellulitis of right foot Dry gangrene Foot pain, right Lactic acidosis Chief Complaint CHEST PAIN CONSTIPATION Hospital FU POSSIBLE INTERVENTION POSSIBLE INTERVENTION FOOT PAIN CLAUDICATION F/U GANGRENE RIGH 2ND TOE GANGRENE RIGH 2ND TOW GANGRENE RIGH 2ND TOE GANGRENE RIGH 2ND TOE GANGRENE RIGH 2ND TOE TOE S/P R SFA ANGIOPLASTY [place] ABD PAIN N/V/ nusea CONSTIPATION Reason for Visit 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 Atherosclerosis of right lower extremity with rest pain Atherosclerosis of lower extremity 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 Atherosclerosis of lower extremity Diabetes Hyperglycemia Peripheral vascular disease, unspecified Diabetes mellitus, type 2 Atherosclerosis of right lower extremity with rest pain Cellulitis of right foot Dry gangrene Foot pain, right Lactic acidosis Chief Complaint TOE S/P R SFA ANGIOPLASTY [place] ABD PAIN N/V/ nusea CONSTIPATION CHF, HYPOXIA, TACHYPNEA Reason for Visit Acute dyspnea Chest pain Hypoxemia Pericardial effusion Pleural effusion Chief Complaint TOE S/P R SFA ANGIOPLASTY [place] ABD PAIN N/V/ nusea CONSTIPATION CHF, PLEURITIC CHEST PAIN CHF, PLEURITIC CHEST PAIN CHF, PLEURITIC CHEST PAIN Reason for Visit Acute dyspnea Chest pain Hypoxemia Pericardial effusion Pleural effusion Chief Complaint CHF, PLEURITIC CHEST PAIN CHF, PLEURITIC CHEST PAIN CHF, PLEURITIC CHEST PAIN CHF, PLEURITIC CHEST PAIN CHF Congestive heart failure Reason for Visit Chest pain Pleural effusion Bilateral pleural effusion Chest pain Hypoxia Acute exacerbation of CHF (congestive heart failure) Chief Complaint CHF, PLEURITIC CHEST PAIN CHF, PLEURITIC CHEST PAIN CHF, PLEURITIC CHEST PAIN CHF, PLEURITIC CHEST PAIN CHF Congestive heart failure Congestive heart failure [facility] ([facility]) 2 wk fu per ENROLLMENT COORDINATOR G47.10 Reason for Visit Chest pain Pleural effusion Bilateral pleural effusion Acute exacerbation of CHF (congestive heart failure) Chest pain Hypoxia CAD (coronary artery disease), rincon coronary artery Essential hypertension Ischemic cardiomyopathy CAD (coronary artery disease), rincon coronary artery Essential hypertension Hypersomnolence Ischemic cardiomyopathy Chief Complaint CHF, PLEURITIC CHEST PAIN CHF, PLEURITIC CHEST PAIN CHF, PLEURITIC CHEST PAIN CHF, PLEURITIC CHEST PAIN CHF Congestive heart failure Congestive heart failure [facility] ([facility]) 2 wk fu per ENROLLMENT COORDINATOR G47.10 Epigastric Pain/Recurrent Vomiting Reason for Visit Chest pain Pleural effusion Bilateral pleural effusion Acute exacerbation of CHF (congestive heart failure) Chest pain Hypoxia CAD (coronary artery disease), rincon coronary artery Essential hypertension Ischemic cardiomyopathy CAD (coronary artery disease), rincon coronary artery Essential hypertension Hypersomnolence Ischemic cardiomyopathy Chief Complaint CHF, PLEURITIC CHEST PAIN CHF, PLEURITIC CHEST PAIN CHF Congestive heart failure Congestive heart failure [facility] ([facility]) 2 wk fu per ENROLLMENT COORDINATOR G47.10 Epigastric Pain/Recurrent Vomiting CHF EXACERBATION Reason for Visit Chest pain Pleural effusion Bilateral pleural effusion Acute exacerbation of CHF (congestive heart failure) Chest pain Hypoxia CAD (coronary artery disease), rincon coronary artery Essential hypertension Ischemic cardiomyopathy CAD (coronary artery disease), rincon coronary artery Essential hypertension Hypersomnolence Ischemic cardiomyopathy Epigastric pain GERD (gastroesophageal reflux disease) Acute dyspnea CHF (congestive heart failure) History of cardiomyopathy History of coronary artery disease Hyperglycemia due to diabetes mellitus Hypoxia Chief Complaint CHF Congestive heart failure Congestive heart failure [facility] ([facility]) 2 wk fu per ENROLLMENT COORDINATOR G47.10 Epigastric Pain/Recurrent Vomiting CHF EXACERBATION CHF EXACERBATION CHF EXACERBATION CHF EXACERBATION CHF EXACERBATION CHF EXACERBATION CHF EXACERBATION CHF EXACERBATION Reason for Visit Bilateral pleural ef fusion Acute exacerbation of CHF (congestive heart failure) Chest pain Hypoxia CAD (coronary artery disease), rincon coronary artery Essential hypertension Ischemic cardiomyopathy CAD (coronary artery disease), rincon coronary artery Essential hypertension Hypersomnolence Ischemic cardiomyopathy Epigastric pain GERD (gastroesophageal reflux disease) Acute dyspnea CHF (congestive heart failure) History of cardiomyopathy History of coronary artery disease Hyperglycemia due to diabetes mellitus Hypoxia Chief Complaint CHF Congestive heart failure Congestive heart failure [facility] ([facility]) 2 wk fu per ENROLLMENT COORDINATOR G47.10 Epigastric Pain/Recurrent Vomiting CHF EXACERBATION CHF EXACERBATION CHF EXACERBATION CHF EXACERBATION CHF EXACERBATION CHF EXACERBATION CHF EXACERBATION CHF EXACERBATION foot pain Reason for Visit Bilateral pleural ef fusion Acute exacerbation of CHF (congestive heart failure) Chest pain Hypoxia CAD (coronary artery disease), rincon coronary artery Essential hypertension Ischemic cardiomyopathy CAD (coronary artery disease), rincon coronary artery Essential hypertension Hypersomnolence Ischemic cardiomyopathy Epigastric pain GERD (gastroesophageal reflux disease) Acute dyspnea CHF (congestive heart failure) History of cardiomyopathy History of coronary artery disease Hyperglycemia due to diabetes mellitus Hypoxia Chief Complaint [facility] ([facility]) 2 wk fu per ENROLLMENT COORDINATOR G47.10 Epigastric Pain/Recurrent Vomiting CHF EXACERBATION CHF EXACERBATION CHF EXACERBATION CHF EXACERBATION CHF EXACERBATION CHF EXACERBATION CHF EXACERBATION CHF EXACERBATION foot pain n/v ACUTE ON CHRONIC HFREF Reason for Visit CAD (coronary artery disease), rincon coronary artery Essential hypertension Ischemic cardiomyopathy CAD (coronary artery disease), rincon coronary artery Essential hypertension Hypersomnolence Ischemic cardiomyopathy Epigastric pain GERD (gastroesophageal reflux disease) Acute dyspnea CHF (congestive heart failure) History of cardiomyopathy History of coronary artery disease Hyperglycemia due to diabetes mellitus Hypoxia Acute dyspnea Bilateral pleural effusion CHF (congestive heart failure) Hypoxia Chief Complaint [facility] ([facility]) 2 wk fu per ENROLLMENT COORDINATOR G47.10 Epigastric Pain/Recurrent Vomiting CHF EXACERBATION CHF EXACERBATION CHF EXACERBATION CHF EXACERBATION CHF EXACERBATION CHF EXACERBATION CHF EXACERBATION CHF EXACERBATION foot pain n/v ACUTE ON CHRONIC HFREF ACUTE ON CHRONIC HFREF ACUTE ON CHRONIC HFREF ACUTE ON CHRONIC HFREF ACUTE ON CHRONIC HFREF Reason for Visit CAD (coronary artery disease), rincon coronary artery Essential hypertension Ischemic cardiomyopathy CAD (coronary artery disease), rincon coronary artery Essential hypertension Hypersomnolence Ischemic cardiomyopathy Epigastric pain GERD (gastroesophageal reflux disease) Acute dyspnea CHF (congestive heart failure) History of cardiomyopathy History of coronary artery disease Hyperglycemia due to diabetes mellitus Hypoxia Acute dyspnea Bilateral pleural effusion CHF (congestive heart failure) Hypoxia Chief Complaint [facility] ([facility]) 2 wk fu per 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 G47.10 Epigastric Pain/Recurrent Vomiting CHF EXACERBATION CHF EXACERBATION CHF EXACERBATION CHF EXACERBATION CHF EXACERBATION CHF EXACERBATION CHF EXACERBATION CHF EXACERBATION foot pain n/v ACUTE ON CHRONIC HFREF ACUTE ON CHRONIC HFREF ACUTE ON CHRONIC HFREF ACUTE ON CHRONIC HFREF ACUTE ON CHRONIC HFREF fall Reason for Visit CAD (coronary artery disease), rincon coronary artery Essential hypertension Ischemic cardiomyopathy CAD (coronary artery disease), rincon coronary artery Essential hypertension Hypersomnolence Ischemic cardiomyopathy Epigastric pain GERD (gastroesophageal reflux disease) Acute dyspnea CHF (congestive heart failure) History of cardiomyopathy History of coronary artery disease Hyperglycemia due to diabetes mellitus Hypoxia Acute dyspnea Bilateral pleural effusion CHF (congestive heart failure) Hypoxia Chief Complaint CHF EXACERBATION CHF EXACERBATION CHF EXACERBATION CHF EXACERBATION CHF EXACERBATION CHF EXACERBATION foot pain n/v ACUTE ON CHRONIC HFREF ACUTE ON CHRONIC HFREF ACUTE ON CHRONIC HFREF ACUTE ON CHRONIC HFREF ACUTE ON CHRONIC HFREF fall FALL Reason for Visit Acute dyspnea History of cardiomyopathy History of coronary artery disease Hyperglycemia due to diabetes mellitus Hypoxia Acute dyspnea Bilateral pleural effusion Hypoxia Chief Complaint foot pain n/v ACUTE ON CHRONIC HFREF ACUTE ON CHRONIC HFREF ACUTE ON CHRONIC HFREF ACUTE ON CHRONIC HFREF ACUTE ON CHRONIC HFREF fall FALL LABWORK Reason for Visit Acute dyspnea Bilateral pleural effusion Hypoxia Chief Complaint fall FALL LABWORK CORRECTION LAB WORK LABWORK LABWORK CORRECTION LAB WORK HIP PAIN Chief Complaint Admit Date COLITIS April 25, 2024 3:52pm Colitis April 28, 2024 10:56am Colitis April 29, 2024 4:08pm COLITIS, UTI June 29, 2024 8 :31pm COLITIS, UTI June 30, 2024 9 :46pm COLITIS, UTI July 01, 2024 3 :09pm COLITIS, UTI July 02, 2024 4 :28pm COLITIS, UTI July 03, 2024 1 2:30pm IM ERTAPENEM July 04, 2024 1 2:18pm IM ERTAPENEM July 05, 2024 1 0:59am IM ERTAPENEM July 06, 2024 1 0:40am IM ERTAPENEM July 07, 2024 1 2:21pm IM ERTAPENEM July 10, 2024 1 2:39pm IM ERTAPENEM July 11, 2024 1 2:31pm nausea vomiting August 01, 2024 1:45pm INTRACTABLE LEFT LOWER EXTREMITY PAIN, P AD August 26, 2024 7:54pm Reason for Visit Admit Date Chronic pain April 25, 2024 3:52pm Dehydration April 25, 2024 3:52pm Hyperglycemia April 25, 2024 3:52pm Hyponatremia April 25, 2024 3:52pm Leukocytosis April 25, 2024 3:52pm Nausea vomiting and diarrhea April 252023 3:52pm Tachycardia April 25, 2024 3:52pm Candidiasis of breast April 25 3:52pm Colitis April 25, 2024 3:52pm Debility April 25, 2024 3:52pm Generalized weakness April 25, 2024 3:52pm UTI (urinary tract infection) June 292024 8:31pm Colitis June 29, 2024 8 :31pm Dehydration June 29, 2024 8 :31pm Sepsis due to gram-negative UTI June 29, 2024 8:31pm Chief Complaint Admit Date COLITIS, UTI June 29, 2024 8 :31pm COLITIS, UTI June 30, 2024 9 :46pm COLITIS, UTI July 01, 2024 3 :09pm COLITIS, UTI July 02, 2024 4 :28pm COLITIS, UTI July 03, 2024 1 2:30pm IM ERTAPENEM July 04, 2024 1 2:18pm IM ERTAPENEM July 05, 2024 1 0:59am IM ERTAPENEM July 06, 2024 1 0:40am IM ERTAPENEM July 07, 2024 1 2:21pm IM ERTAPENEM July 10, 2024 1 2:39pm IM ERTAPENEM July 11, 2024 1 2:31pm nausea vomiting August 01, 2024 1:45pm PERIPHERAL ARTERIAL CRITICAL STENOSIS [place] EXTREME August 26, 2024 8:03pm PERIPHERAL ARTERIAL CRITICAL STENOSIS WI EXTREME August 27, 2024 7:05am PERIPHERAL ARTERIAL CRITICAL STENOSIS WI [facility]TREME August 27, 2024 7:25am PERIPHERAL ARTERIAL CRITICAL STENOSIS [place]TREME August 28, 2024 5:55pm PERIPHERAL ARTERIAL CRITICAL STENOSIS WI EXTREME August 29, 2024 9:45am PERIPHERAL ARTERIAL CRITICAL STENOSIS [place] [facility]TREME August 30, 2024 3:28pm PERIPHERAL ARTERIAL CRITICAL STENOSIS [place]ME August 31, 2024 8:54am PERIPHERAL ARTERIAL CRITICAL STENOSIS [place] [facility] September 01, 2024 8:19am PERIPHERAL ARTERIAL CRITICAL STENOSIS [place] [facility]ME September 02, 2024 7:51am Reason for Visit Admit Date UTI (urinary tract infection) June 292024 8:31pm Colitis June 29, 2024 8 :31pm Dehydration June 29, 2024 8 :31pm Sepsis due to gram-negative UTI June 29, 2024 8:31pm Acute pain of left lower extremity August 26, 2024 8:03pm Intractable neuropathic pain of left low er extremity August 26, 2024 8:03pm Peripheral vascular disease, unspecified August 26, 2024 8:03pm Uncontrolled diabetes mellitus August 8:03pm Chief Complaint Admit Date COLITIS, UTI June 29, 2024 8 :31pm COLITIS, UTI June 30, 2024 9 :46pm COLITIS, UTI July 01, 2024 3 :09pm COLITIS, UTI July 02, 2024 4 :28pm COLITIS, UTI July 03, 2024 1 2:30pm IM ERTAPENEM July 04, 2024 1 2:18pm IM ERTAPENEM July 05, 2024 1 0:59am IM ERTAPENEM July 06, 2024 1 0:40am IM ERTAPENEM July 07, 2024 1 2:21pm IM ERTAPENEM July 10, 2024 1 2:39pm IM ERTAPENEM July 11, 2024 1 2:31pm nausea vomiting August 01, 2024 1:45pm PERIPHERAL ARTERIAL CRITICAL STENOSIS WI EXTREME August 26, 2024 8:03pm PERIPHERAL ARTERIAL CRITICAL STENOSIS WI EXTREME August 27, 2024 7:05am PERIPHERAL ARTERIAL CRITICAL STENOSIS WI EXTREME August 27, 2024 7:25am PERIPHERAL ARTERIAL CRITICAL STENOSIS WI EXTREME August 28, 2024 5:55pm PERIPHERAL ARTERIAL CRITICAL STENOSIS WI EXTREME August 29, 2024 9:45am PERIPHERAL ARTERIAL CRITICAL STENOSIS WI EXTREME August 30, 2024 3:28pm PERIPHERAL ARTERIAL CRITICAL STENOSIS WI EXTREME August 31, 2024 8:54am PERIPHERAL ARTERIAL CRITICAL STENOSIS WI [facility]TREME September 01, 2024 8:19am PERIPHERAL ARTERIAL CRITICAL STENOSIS WI [facility]TREME September 02, 2024 7:51am n/v/d, abd and back pain September 05, 2024 10:28am Chief Complaint Admit Date COLITIS, UTI June 29, 2024 8 :31pm COLITIS, UTI June 30, 2024 9 :46pm COLITIS, UTI July 01, 2024 3 :09pm COLITIS, UTI July 02, 2024 4 :28pm COLITIS, UTI July 03, 2024 1 2:30pm IM ERTAPENEM July 04, 2024 1 2:18pm IM ERTAPENEM July 05, 2024 1 0:59am IM ERTAPENEM July 06, 2024 1 0:40am IM ERTAPENEM July 07, 2024 1 2:21pm IM ERTAPENEM July 10, 2024 1 2:39pm IM ERTAPENEM July 11, 2024 1 2:31pm nausea vomiting August 01, 2024 1:45pm PERIPHERAL ARTERIAL CRITICAL STENOSIS WI EXTREME August 26, 2024 8:03pm PERIPHERAL ARTERIAL CRITICAL STENOSIS WI [facility] August 27, 2024 7:05am PERIPHERAL ARTERIAL CRITICAL STENOSIS WI [facility] August 27, 2024 7:25am PERIPHERAL ARTERIAL CRITICAL STENOSIS WI [facility] August 28, 2024 5:55pm PERIPHERAL ARTERIAL CRITICAL STENOSIS WI [facility] August 29, 2024 9:45am PERIPHERAL ARTERIAL CRITICAL STENOSIS WI [facility] August 30, 2024 3:28pm PERIPHERAL ARTERIAL CRITICAL STENOSIS WI [facility] August 31, 2024 8:54am PERIPHERAL ARTERIAL CRITICAL STENOSIS WI [facility] September 01, 2024 8:19am PERIPHERAL ARTERIAL CRITICAL STENOSIS WI [facility] September 02, 2024 7:51am n/v/d, abd and back pain September 05, 2024 10:28am INTRACTABLE N/V, HYPOKALEMIA September 07, 2024 9:35pm Reason for Visit Admit Date UTI (urinary tract infection) June 292024 8:31pm Colitis June 29, 2024 8 :31pm Dehydration June 29, 2024 8 :31pm Sepsis due to gram-negative UTI June 29, 2024 8:31pm Acute pain of left lower extremity August 26, 2024 8:03pm Intractable neuropathic pain of left low er extremity August 26, 2024 8:03pm Peripheral vascular disease, unspecified August 26, 2024 8:03pm Uncontrolled diabetes mellitus August 8:03pm Intractable nausea and vomiting September 9:35pm Chief Complaint Admit Date COLITIS, UTI June 29, 2024 8 :31pm COLITIS, UTI June 30, 2024 9 :46pm COLITIS, UTI July 01, 2024 3 :09pm COLITIS, UTI July 02, 2024 4 :28pm COLITIS, UTI July 03, 2024 1 2:30pm IM ERTAPENEM July 04, 2024 1 2:18pm IM ERTAPENEM July 05, 2024 1 0:59am IM ERTAPENEM July 06, 2024 1 0:40am IM ERTAPENEM July 07, 2024 1 2:21pm IM ERTAPENEM July 10, 2024 1 2:39pm IM ERTAPENEM July 11, 2024 1 2:31pm nausea vomiting August 01, 2024 1:45pm PERIPHERAL ARTERIAL CRITICAL STENOSIS WI [facility] August 26, 2024 8:03pm PERIPHERAL ARTERIAL CRITICAL STENOSIS WI [facility] August 27, 2024 7:05am PERIPHERAL ARTERIAL CRITICAL STENOSIS WI [facility] August 27, 2024 7:25am PERIPHERAL ARTERIAL CRITICAL STENOSIS WI [facility] August 28, 2024 5:55pm PERIPHERAL ARTERIAL CRITICAL STENOSIS [facility] August 29, 2024 9:45am PERIPHERAL ARTERIAL CRITICAL STENOSIS WI [facility] August 30, 2024 3:28pm PERIPHERAL ARTERIAL CRITICAL STENOSIS [facility] August 31, 2024 8:54am PERIPHERAL ARTERIAL CRITICAL STENOSIS [facility] September 01, 2024 8:19am PERIPHERAL ARTERIAL CRITICAL STENOSIS [facility] September 02, 2024 7:51am n/v/d, abd and back pain September 05, 2024 10:28am INTRACTABLE N/V, HYPOKALEMIA September 07, 2024 9:35pm INTRACTABLE N/V, HYPOKALEMIA September 08, 2024 10:00am INTRACTABLE N/V, HYPOKALEMIA September 09, 2024 6:39pm INTRACTABLE N/V, HYPOKALEMIA September 09, 2024 7:01pm INTRACTABLE N/V, HYPOKALEMIA September 10, 2024 5:31pm INTRACTABLE N/V, HYPOKALEMIA September 11, 2024 4:06pm INTRACTABLE N/V, HYPOKALEMIA September 12, 2024 4:15pm INTRACTABLE N/V, HYPOKALEMIA September 13, 2024 9:38am INTRACTABLE N/V, HYPOKALEMIA September 14, 2024 9:10am INTRACTABLE N/V, HYPOKALEMIA September 15, 2024 7:22am INTRACTABLE N/V, HYPOKALEMIA September 16, 2024 8:13am Reason for Visit Admit Date UTI (urinary tract infection) June 292024 8:31pm Colitis June 29, 2024 8 :31pm Dehydration June 29, 2024 8 :31pm Sepsis due to gram-negative UTI June 29, 2024 8:31pm Intractable neuropathic pain of left low er extremity August 26, 2024 8:03pm Peripheral vascular disease, unspecified August 26, 2024 8:03pm Uncontrolled diabetes mellitus August 8:03pm Acute pain of left lower extremity August 26, 2024 8:03pm Emphysematous cystitis September 09, 2024 7 :01pm Intractable nausea and vomiting September 7:01pm Chief Complaint Admit Date COLITIS, UTI June 29, 2024 8 :31pm COLITIS, UTI June 30, 2024 9 :46pm COLITIS, UTI July 01, 2024 3 :09pm COLITIS, UTI July 02, 2024 4 :28pm COLITIS, UTI July 03, 2024 1 2:30pm IM ERTAPENEM July 04, 2024 1 2:18pm IM ERTAPENEM July 05, 2024 1 0:59am IM ERTAPENEM July 06, 2024 1 0:40am IM ERTAPENEM July 07, 2024 1 2:21pm IM ERTAPENEM July 10, 2024 1 2:39pm IM ERTAPENEM July 11, 2024 1 2:31pm nausea vomiting August 01, 2024 1:45pm PERIPHERAL ARTERIAL CRITICAL STENOSIS WI EXTREME August 26, 2024 8:03pm PERIPHERAL ARTERIAL CRITICAL STENOSIS WI EXTREME August 27, 2024 7:05am PERIPHERAL ARTERIAL CRITICAL STENOSIS WI EXTREME August 27, 2024 7:25am PERIPHERAL ARTERIAL CRITICAL STENOSIS WI EXTREME August 28, 2024 5:55pm PERIPHERAL ARTERIAL CRITICAL STENOSIS WI EXTREME August 29, 2024 9:45am PERIPHERAL ARTERIAL CRITICAL STENOSIS WI EXTREME August 30, 2024 3:28pm PERIPHERAL ARTERIAL CRITICAL STENOSIS WI [facility] August 31, 2024 8:54am PERIPHERAL ARTERIAL CRITICAL STENOSIS WI [facility] September 01, 2024 8:19am PERIPHERAL ARTERIAL CRITICAL STENOSIS WI [facility] September 02, 2024 7:51am n/v/d, abd and back pain September 05, 2024 10:28am INTRACTABLE N/V, HYPOKALEMIA September 07, 2024 9:35pm INTRACTABLE N/V, HYPOKALEMIA September 08, 2024 10:00am INTRACTABLE N/V, HYPOKALEMIA September 09, 2024 6:39pm INTRACTABLE N/V, HYPOKALEMIA September 09, 2024 7:01pm INTRACTABLE N/V, HYPOKALEMIA September 10, 2024 5:31pm INTRACTABLE N/V, HYPOKALEMIA September 11, 2024 4:06pm INTRACTABLE N/V, HYPOKALEMIA September 12, 2024 4:15pm INTRACTABLE N/V, HYPOKALEMIA September 13, 2024 9:38am INTRACTABLE N/V, HYPOKALEMIA September 14, 2024 9:10am INTRACTABLE N/V, HYPOKALEMIA September 15, 2024 7:22am INTRACTABLE N/V, HYPOKALEMIA September 16, 2024 8:13am n/v/d September 21, 2024 12: 16pm Chief Complaint Admit Date COLITIS, UTI June 29, 2024 8 :31pm COLITIS, UTI June 30, 2024 9 :46pm COLITIS, UTI July 01, 2024 3 :09pm COLITIS, UTI July 02, 2024 4 :28pm COLITIS, UTI July 03, 2024 1 2:30pm IM ERTAPENEM July 04, 2024 1 2:18pm IM ERTAPENEM July 05, 2024 1 0:59am IM ERTAPENEM July 06, 2024 1 0:40am IM ERTAPENEM July 07, 2024 1 2:21pm IM ERTAPENEM July 10, 2024 1 2:39pm IM ERTAPENEM July 11, 2024 1 2:31pm nausea vomiting August 01, 2024 1:45pm PERIPHERAL ARTERIAL CRITICAL STENOSIS WI EXTREME August 26, 2024 8:03pm PERIPHERAL ARTERIAL CRITICAL STENOSIS WI EXTREME August 27, 2024 7:05am PERIPHERAL ARTERIAL CRITICAL STENOSIS WI EXTREME August 27, 2024 7:25am PERIPHERAL ARTERIAL CRITICAL STENOSIS WI EXTREME August 28, 2024 5:55pm PERIPHERAL ARTERIAL CRITICAL STENOSIS WI EXTREME August 29, 2024 9:45am PERIPHERAL ARTERIAL CRITICAL STENOSIS WI EXTREME August 30, 2024 3:28pm PERIPHERAL ARTERIAL CRITICAL STENOSIS WI EXTREME August 31, 2024 8:54am PERIPHERAL ARTERIAL CRITICAL STENOSIS WI EXTREME September 01, 2024 8:19am PERIPHERAL ARTERIAL CRITICAL STENOSIS WI EXTREME September 02, 2024 7:51am n/v/d, abd and back pain September 05, 2024 10:28am INTRACTABLE N/V, HYPOKALEMIA September 07, 2024 9:35pm INTRACTABLE N/V, HYPOKALEMIA September 08, 2024 10:00am INTRACTABLE N/V, HYPOKALEMIA September 09, 2024 6:39pm INTRACTABLE N/V, HYPOKALEMIA September 09, 2024 7:01pm INTRACTABLE N/V, HYPOKALEMIA September 10, 2024 5:31pm INTRACTABLE N/V, HYPOKALEMIA September 11, 2024 4:06pm INTRACTABLE N/V, HYPOKALEMIA September 12, 2024 4:15pm INTRACTABLE N/V, HYPOKALEMIA September 13, 2024 9:38am INTRACTABLE N/V, HYPOKALEMIA September 14, 2024 9:10am INTRACTABLE N/V, HYPOKALEMIA September 15, 2024 7:22am INTRACTABLE N/V, HYPOKALEMIA September 16, 2024 8:13am n/v/d September 21, 2024 12: 16pm nausea September 29, 2024 10: 16am Chief Complaint Admit Date PERIPHERAL ARTERIAL CRITICAL STENOSIS [facility] August 26, 2024 8:03pm PERIPHERAL ARTERIAL CRITICAL STENOSIS [facility] August 27, 2024 7:05am PERIPHERAL ARTERIAL CRITICAL STENOSIS [facility] August 27, 2024 7:25am PERIPHERAL ARTERIAL CRITICAL STENOSIS [facility] August 28, 2024 5:55pm PERIPHERAL ARTERIAL CRITICAL STENOSIS [facility] August 29, 2024 9:45am PERIPHERAL ARTERIAL CRITICAL STENOSIS [facility] August 30, 2024 3:28pm PERIPHERAL ARTERIAL CRITICAL STENOSIS [facility] [facility] August 31, 2024 8:54am PERIPHERAL ARTERIAL CRITICAL STENOSIS [facility] September 01, 2024 8:19am PERIPHERAL ARTERIAL CRITICAL STENOSIS [facility] September 02, 2024 7:51am n/v/d, abd and back pain September 05, 2024 10:28am INTRACTABLE N/V, HYPOKALEMIA September 07, 2024 9:35pm INTRACTABLE N/V, HYPOKALEMIA September 08, 2024 10:00am INTRACTABLE N/V, HYPOKALEMIA September 09, 2024 6:39pm INTRACTABLE N/V, HYPOKALEMIA September 09, 2024 7:01pm INTRACTABLE N/V, HYPOKALEMIA September 10, 2024 5:31pm INTRACTABLE N/V, HYPOKALEMIA September 11, 2024 4:06pm INTRACTABLE N/V, HYPOKALEMIA September 12, 2024 4:15pm INTRACTABLE N/V, HYPOKALEMIA September 13, 2024 9:38am INTRACTABLE N/V, HYPOKALEMIA September 14, 2024 9:10am INTRACTABLE N/V, HYPOKALEMIA September 15, 2024 7:22am INTRACTABLE N/V, HYPOKALEMIA September 16, 2024 8:13am n/v/d September 21, 2024 12: 16pm nausea September 29, 2024 10: 16am blister December 12, 2024 1:08 pm Reason for Visit Admit Date Intractable neuropathic pain of left low er extremity August 26, 2024 8:03pm Peripheral vascular disease, unspecified August 26, 2024 8:03pm Uncontrolled diabetes mellitus August 8:03pm Acute pain of left lower extremity August 26, 2024 8:03pm Emphysematous cystitis September 09, 2024 7 :01pm Intractable nausea and vomiting September 7:01pm Additional Source Comments INFORMATION SOURCE (unrecogn ized section and content) DATE CREATED AUTHOR 07/24/2018 [facility] DATE CREATED AUTHOR AUTHOR'S ORGANIZ ATION 04/08/2019 [facility] DATE CREATED AUTHOR AUTHOR'S ORGANIZ ATION 08/28/2019 [facility] DATE CREATED AUTHOR AUTHOR'S ORGANIZ ATION 06/09/2020 [facility] DATE CREATED AUTHOR AUTHOR'S ORGANIZ ATION 06/09/2020 [employer] DATE CREATED AUTHOR AUTHOR'S ORGANIZ ATION 08/17/2021 [facility] DATE CREATED AUTHOR AUTHOR'S ORGANIZ ATION 05/06/2022 [facility] DATE CREATED AUTHOR AUTHOR'S ORGANIZ ATION 09/07/2022 [facility] ([place] DATE CREATED AUTHOR AUTHOR'S ORGANIZ ATION 05/30/2024 [facility] DATE CREATED AUTHOR AUTHOR'S ORGANIZ ATION 07/07/2024 [facility] DATE CREATED AUTHOR AUTHOR'S ORGANIZ ATION 09/14/2024 [facility] DATE CREATED AUTHOR AUTHOR'S ORGANIZ ATION 12/24/2024 [facility] <item> Privacy Markings (unrecogniz ed section and content) Section Author: Capri Fatima PROHIBITION ON REDISCLOSURE OF CONFIDENTIAL INFORMATION This notice accompanies a disclosure of information concerning a client made to you with the consent of such client. Goals (unrecognized section and content) Goals may be documented in a n alternate sectionGoals may be documented in an alternate sectionGoals may be documented in an alternate sectionGoals may be documented in an alternate sectionGoals may be documented in an alternate sectionGoals may be documented in an alternate sectionGoals may be documented in an alternate sectionGoals may be documented in an alternate sectionGoals may be documented in an alternate sectionGoals may be documented in an alternate sectionGoals may be documented in an alternate section No data available for this section Care Teams (unrecognized sec tion and content) Team Status: Active Member Role Status Dates Dr. Uziel Conteh MD Family Provider Active Dr. Nathaly Lainez Primary Care Provider Active Team Status: Inactive Member Role Status Dates Dr. Nathaly Lainez Primary Care Provider, Referring P rovider Active Jevon SALAZAR, PA Attending Provider Active Team Status: Inactive Member Role Status Dates Dr. Nathaly Lainez Primary Care Provider Active Dr. Alli Brito MD Attending Provider Active Team Status: Inactive Member Role Status Dates Dr. Nathaly Lainez Primary Care Provider Active Dr. Jeison Abrams DO Attending Provider, Emergency P rovider Active Team Status: Inactive Member Role Status Dates Dr. Nathaly Lainez Primary Care Provider Active Dr. Vidal Mcneal MD Attending Provider, Emergency Pr ovider Active Team Status: Inactive Member Role Status Dates Dr. Nathaly Lainez Primary Care Provider Active Jeremiah Rawls MD Attending Provider, Emergency Provid er Active Team Status: Active Member Role Status Dates [place] Lainez Primary Care Provider Active ROBERT HERNANDEZ Attending Provider, Referring Provider Active Team Status: Inactive Member Role Status Dates Dr. Nathaly Lainez Primary Care Provider Active Dr. Conor Martin DO Attending Provider, Emergency Pr ovider Active Team Status: Inactive Member Role Status Dates Dr. Nathaly Laniez Primary Care Provider Active Dr. Zack Card DO Attending Provider, Emergency Provide r Active Team Status: Inactive Member Role Status Dates Dr. Nathaly Lainez Primary Care Provider Active Zohreh Mckeon SERVICE DESK DIRECTOR, SERVICE DESK DIRECTOR-C Attending Provider Active Team Status: Inactive Member Role Status Dates Dr. Nathaly Lainez Primary Care Provider Active Dr. Vidal Mcneal MD Emergency Provider Active Team Status: Inactive Member Role Status Dates Dr. Nathaly Lainez Primary Care Provider Active Dr. Riccardo Hillman DO Emergency Provider Active Team Status: Active Member Role Status Dates Dr. Uziel Conteh MD Family Provider Active [facility] Primary Care Provider A ctive Team Status: Inactive Member Role Status Dates Dr. Nathaly Lainez Primary Care Provider, Referring P rovider Active Veda SALAZAR, PA Attending Provider Active Team Status: Active Member Role Status Dates Dr. Riccardo Ng MD Attending Provider, Referring Provider, Other Provider Active [facility] Primary Care Provider A ctive Team Status: Inactive Member Role Status Dates Dr. Nathaly Lainez Primary Care Provider Active Dr. Riccardo Hillman DO Attending Provider, Emergency P rovider Active Team Status: Inactive Member Role Status Dates Dr. Nathaly Lainez Primary Care Provider Active Dr. Ananda Coyle MD Emergency Provider Active Team Status: Inactive Member Role Status Dates Dr. Riccardo Ng MD Attending Provider, Referring Pro vider Active [facility] Primary Care Provider A ctive Team Status: Inactive Member Role Status Dates [facility] Primary Care Provider A ctive Dr. Roberto Black MD Emergency Provider Active Team Status: Inactive Member Role Status Dates [facility] Primary Care Provider, Referring Provider Active Veda Mathis PA, PA Attending Provider Active Team Status: Active Member Role Status Dates [facility] Primary Care Provider A ctive Dr. Riccardo Ng MD Attending Provider Active Team Status: Inactive Member Role Status Dates Dr. Serrato [facility] Primary Care Provider Active Dr. Ananda Coyle MD Attending Provider, Emergency Pro vider Active Team Status: Inactive Member Role Status Dates MARTIN Sheldon Attending Provider, Referrin g Provider Active [facility] Primary Care Provider A ctive Team Status: Inactive Member Role Status Dates [facility] Primary Care Provider A ctive Dr. Roberto Black MD Attending Provider, Emergency Provider Active Team Status: Active Member Role Status Dates [facility] Primary Care Provider A ctchristianne Rawls MD Emergency Provider Active Dr. Jeison Forde , DPM Admit Provider, Attending Pro vider Active Dr. Sabina Rosenberg DO Other Provider Active Team Status: Active Member Role Status Dates [facility] Primary Care Provider A dayday Rawls MD Emergency Provider Active Dr. Jeison Forde , DPM Admit Provider, Other Provide r Active Dr. Sabina Rosenberg DO Attending Provider, Other Pro vider Active Team Status: Active Member Role Status Dates [facility] Primary Care Provider A ctive Dr. Sanjiv Alcantar MD Attending Provider Activ e Team Status: Inactive Member Role Status Dates [facility] Primary Care Provider A ctchristianne Rawls MD Emergency Provider Active Dr. Jeison Forde , DPM Admit Provider, Attending Pro vider Active Dr. Sabina Rosenberg DO Other Provider Active Team Status: Active Member Role Status [facility] [place] [place] Primary Care Provider A dayday Rawls MD Emergency Provider Active Dr. Jeison Forde , DPM Admit Provider, Referring Provider, Other Provider Active Dr. Sabina Rosenberg DO Attending Provider, Other Pro vider Active Team Status: Inactive Member Role Status [facility] [place] [place] Primary Care Provider A ctive Dr. Yvette Hanley , Emergency Provider Active Team Status: Active Member Role Status [facility] [place] [place] Primary Care Provider A ctive Dr. Riccardo Ng MD Attending Provider Active MARTIN Sheldon Referring Provider Active Team Status: Active Member Role Status Dates [facility] Primary Care Provider A ctive MARTIN Sheldon Attending Provider, Referrin g Provider Active Team Status: Inactive Member Role Status Dates [facility] Primary Care Provider A ctive Dr. Griselda Christina MD Emergency Provider Active Team Status: Inactive Member Role Status Dates [facility] Primary Care Provider A ctive MARTIN Sheldon Attending Provider, Referrin g Provider Active Team Status: Inactive Member Role Status Dates [facility] Primary Care Provider A ctive Dr. Yvette Hanley DO Attending Provider, Emergency Pro vider Active Team Status: Inactive Member Role Status Dates [facility] Primary Care Provider A ctive Dr. Griselda Christina MD Attending Provider, Emergency Provider Active Team Status: Inactive Member Role Status Dates [facility] Primary Care Provider A ctive Dr. Zack Card DO Emergency Provider Active Team Status: Inactive Member Role Status Dates [facility] Primary Care Provider A ctive Dr. Zack Card DO Attending Provider, Emergency Provide r Active Team Status: Inactive Member Role Status Dates [facility] Primary Care Provider A ctive Dr. Ananda Coyle MD Referring Provider, Emergency Pro vider Active Team Status: Inactive Member Role Status Dates Dr. Serrato [facility] Primary Care Provider, Referring P rovider Active MARTIN Horn Attending Provider Active Team Status: Inactive Member Role Status Dates [facility] Primary Care Provider, Referring Provider Active MARTIN Horn Attending Provider Active Team Status: Active Member Role Status Dates [facility] Primary Care Provider A ctive Dr. Riccardo Ng MD Attending Provider Active MARTIN Horn Referring Provider Active Team Status: Active Member Role Status Dates [facility] Primary Care Provider A ctive Dr. Riccardo gN MD Attending Provider Active Dr. Yvette Hanley DO Referring Provider Active Team Status: Inactive Member Role Status Dates MARTIN Horn Attending Provider, Referring Provider Active [facility] Primary Care Provider A ctive Team Status: Inactive Member Role Status Dates [facility] Primary Care Provider A ctive MARTIN Horn Attending Provider, Referring Provider Active Team Status: Inactive Member Role Status Dates [facility] Primary Care Provider A ctive Dr. Ananda Coyle MD Attending Provider, Referring Provider, Emergency Provider Active Team Status: Active Member Role Status Dates [facility] Primary Care Provider A ctive Dr. Yvette Hanley , DO Emergency Provider Active Dr. Sabina Rosenberg DO Admit Provider, Attending Pro vider Active Team Status: Active Member Role Status [facility] [place] [place] Primary Care Provider A ctive Dr. Yvette Hanley , DO Emergency Provider Active Dr. Sabina Rosenberg , Admit Provider, Attending Provider, Other Provider Active Team Status: Inactive Member Role Status Dates [facility] Primary Care Provider A ctive Dr. Yvette Hanley , DO Emergency Provider Active Dr. Sabina Rosebnerg , Admit Provider, Attending Pro vider Active Team Status: Active Member Role Status [facility] [place] [place] Primary Care Provider A ctive Dr. Zack Card , DO Emergency Provider Active Dr. Brandon Adames MD Admit Provi dianelsy, Attending Provider, Other Provider Active Team Status: Active Member Role Status [facility] [place] [place] Primary Care Provider A ctive Dr. Zack Card , DO Emergency Provider Active Dr. Brandon Adames MD Admit Provider, Attending Provider Active Team Status: Inactive Member Role Status [facility] [place] [place] Primary Care Provider A ctive Dr. Zack Card , DO Emergency Provider Active Dr. Brandon Adames MD Admit Provider, Other Pro vider Active Dr. Sabina Rosenberg , Attending Provider Active Team Status: Inactive Member Role Status [facility] [place] [place] Primary Care Provider, Referring Provider Active Dr. Alli Brito MD Attending Provider Active Team Status: Active Member Role Status [facility] [place] Primary Care Provider A ctive Dr. Zack Card , DO Emergency Provider Active Dr. Brandon Adames MD Admit Provider, Other Pro vider Active Dr. Sabina Roesnberg DO Attending Provider, Other Pro vider Active Team Status: Inactive Member Role Status [facility] [place] Primary Care Provider, Referring Provider Active Juancarlos Pandey SERVICE DESK DIRECTOR, SERVICE DESK DIRECTOR-C Attending Provider Active Team Status: Inactive Member Role Status [facility] [place] Primary Care Provider A ctive Juancarlos Pandey SERVICE DESK DIRECTOR, SERVICE DESK DIRECTOR-C Attending Provider, Referring Pro vider Active Team Status: Inactive Member Role Status Dates [facility] Primary Care Provider, Referring Provider Active Dr. Lino Sousa MD Attending Provider Active Team Status: Inactive Member Role Status [facility] [place] Primary Care Provider A ctive Dr. Lino Sousa MD Attending Provider, Referr ing Provider Active Team Status: Active Member Role Status [facility] [place] [place] Primary Care Provider A ctive Dr. Ananda Coyle MD Emergency Provider Active Dr. Lei Justin DO Admit Provider, Attending Provider Active Team Status: Active Member Role Status Dates [facility] Primary Care Provider A ctive Dr. Ananda Coyle MD Emergency Provider Active Dr. Lei Justni DO Admit Provider, Other Pro vider Active Dr. Alli Brito MD Attending Provider, Other Provide r Active Dr. Brenda Posadas MD Other Provider Active Team Status: Active Member Role Status [facility] [place] [place] Primary Care Provider A ctive Dr. Ananda Coyle MD Emergency Provider Active Dr. Lei Justin DO Admit Provider, Other Pro vider Active Dr. Alli Brito MD Other Provider Active Dr. Brenda Posadas MD Attending Provider, Other Provid er Active Team Status: Active Member Role Status [facility] [place] [place] Primary Care Provider A ctive Dr. Ananda Coyle MD Emergency Provider Active Dr. Lei Justin DO Admit Provider, Other Pro vider Active Dr. Alli Brito MD Other Provider Active Dr. Latricia Aaron MD Attending Provider, Other Provid er Active Dr. Brenda Posadas MD Other Provider Active Team Status: Inactive Member Role Status Dates [facility] Primary Care Provider A ctive Dr. Ananda Coyle MD Emergency Provider Active Dr. Lei Justin DO Admit Provider, Other Pro vider Active Dr. Alli Brito MD Other Provider Active Dr. Latricia Aaron MD Attending Provider Active Dr. Brenda Posadas MD Other Provider Active Team Status: Active Member Role Status Dates [facility] Primary Care Provider A ctive Dr. Ananda Coyle MD Emergency Provider Active Dr. Lei Justin DO Admit Provi dianelys, Referring Provider, Other Provider Active Dr. Alli Brito MD Attending Provider, Other Provide r Active Dr. Brenda Posadas MD Other Provider Active Team Status: Inactive Member Role Status Dates [facility] Primary Care Provider A ctive Dr. Derek Paniagua MD Emergency Provider Active Team Status: Inactive Member Role Status Dates [facility] Primary Care Provider A ctive Dr. Derek Paniagua MD Attending Provider, Emergency Provi dianelys Active Team Status: Active Member Role Status Dates [facility] Primary Care Provider A ctive Dr. Riccardo Hillman , DO Emergency Provider Active Dr. Talisha Boykin MD Admit Provider, Attending Prov ider Active Team Status: Inactive Member Role Status Dates [facility] Primary Care Provider A ctive Dr. Ananda Coyle MD Attending Provider, Emergency Pro vider Active Team Status: Active Member Role Status Dates [facility] Primary Care Provider A ctive Dr. Riccardo Hillman , DO Emergency Provider Active Dr. Talisha Boykin MD Admit Provider, Other Provider Active Dr. Jeremy Alexander MD Attending Provider, Other Provi dianelys Active Team Status: Active Member Role Status Dates [facility] Primary Care Provider A ctive Dr. Riccardo Hillman , DO Emergency Provider Active Dr. Talisha Boykin MD Admit Provider, Other Provider Active Dr. Jeremy Alexander MD Attending Provider, Other Provi dianelys Active Dr. Moody Gallagher DPM Other Provider Active Team Status: Inactive Member Role Status Dates [facility] Primary Care Provider A ctive Dr. Riccardo Hillman , DO Emergency Provider Active Dr. Talisha Boykin MD Admit Provider, Other Provider Active Dr. Jeremy Alexander MD Attending Provider Active Dr. Moody Gallagher DPM Other Provider Active Team Status: Active Member Role Status Dates [facility] Primary Care Provider A ctive Dr. Riccardo Hillman , DO Emergency Provider Active Dr. Talisha Boykin MD Admit Provider, Attending Provider, Other Provider Active Dr. Jeremy Alexander MD Other Provider Active Team Status: Active Member Role Status [facility] [place] Primary Care Provider A ctive Patient Link Program Attending Provider, Referring Pro vider Active Team Status: Inactive Member Role Status Dates [facility] Primary Care Provider A ctive Dr. Ananda Coyle MD Emergency Provider Active Game Tester Relationship Specialty Start Date End Date [facility], [facility] [address] [place] [address] PCP - General 09/02/23 Zohreh Mckeon NP [address] [place] [phone] Referring Family Medicine 10/18/22 Team Status: Inactive Member Role Status Dates [facility] Primary Care Provider A ctive Dr. Kaylie PEMBERTON MD Attending Provider Active Team Status: Active Member Role Status Dates [facility] Primary Care Provider A ctive Dr. Kaylie PEMBERTON MD Attending Provider Active Game Tester Relationship Specialty Start Date End Date [facility], [facility] [address] [place] [address] PCP - General 09/02/23 Zohreh Mckeon NP [address] [place] [address] Referring Family Medicine 10/18/22 Team Status: Active Member Role Status Dates [facility] Primary Care Provider A ctive Dr. Kaylie PEMBERTON MD Attending Provider, Referring Provider Active Team Status: Inactive Member Role Status Dates [facility] Primary Care Provider A ctive Jeremiah Rawls MD Emergency Provider Active Game Tester Relationship Specialty Start Date End Date [facility] [address] [place] [address] PCP - General 09/02/23 Zohreh Mckeon NP [address] [place] [phone] Referring Family Medicine 10/18/22 Game Tester Relationship Specialty Start Date End Date [facility], [facility] [address] [place] [phone] PCP - General 09/02/23 Zohreh Mckeon NP [address] [place] [phone] Referring Family Medicine 10/18/22 Game Tester Relationship Specialty Start Date End Date [facility], [facility] [address] [place] [phone] PCP - General 09/02/23 Zohreh Mckeon NP [facility] [place] [phone] Referring Family Medicine 10/18/22 Game Tester Relationship Specialty Start Date End Date [facility], [facility] [place] [phone] PCP - General 09/02/23 Zohreh Mckeon NP [facility] [place] [address] Referring Family Medicine 10/18/22 Game Tester Relationship Specialty Start Date End Date No, Pcp [address] [place] [address] PCP - General 05/02/22 Team Status: Active Member Role Status Dates Zohreh Mckeon VSC, SERVICE DESK DIRECTOR-C Primary Care Provider Activ e Team Status: Inactive Member Role Status Dates [facility] Primary Care Provider Active Start: April 252023 End: April 29, 2024 Jeremiah Rawls MD Emergency Provider Active Star t: April 25, 2024 End: April 29, 2024 Dr. Nicole Trujillo DO Admit Provider Active Start : April 25, 2024 End: April 29, 2024 Dr. Nicole Trujillo , Other Provider Active Start : April 25, 2024 End: April 29, 2024 Dr. Jeremy Alexander MD Other Provider Active Sta rt: April 25, 2024 End: April 29, 2024 Dr. Talisha Boykin MD Attending Provider Active Start: April 25, 2024 End: April 29, 2024 Team Status: Active Member Role Status Dates [facility] Primary Care Provider Active Start: April 282023 Jeremiah Rawls MD Emergency Provider Active Star t: April 28, 2024 Dr. Nicole Trujillo DO Admit Provider Active Start : April 28, 2024 Dr. Nicole Trujillo DO Other Provider Active Start : April 28, 2024 Dr. Jeremy Alexander MD Other Provider Active Sta rt: April 28, 2024 Dr. Talisha Boykin MD Attending Provider Active Start: April 28, 2024 Dr. Talisha Boykin MD Other Provider Active St art: April 28, 2024 Team Status: Active Member Role Status Dates [facility] Primary Care Provider Active Start: April 292023 Jeremiah Rawls MD Emergency Provider Active Star t: April 29, 2024 Dr. Nicole Trujillo DO Admit Provider Active Start : April 29, 2024 Dr. Nicole Trujillo DO Other Provider Active Start : April 29, 2024 Dr. Jeremy Alexander MD Other Provider Active Sta rt: April 29, 2024 Dr. Talisha Boykin MD Attending Provider Active Start: April 29, 2024 Dr. Talisha Boykin MD Other Provider Active St art: April 29, 2024 Team Status: Inactive Member Role Status Dates [facility] Primary Care Provider A ctive Start: June 29, 2024 End: July 03, 2024 Dr. Davis Ibarra DO Emergency Provider Active Start: June 29, 2024 End: July 03, 2024 Dr. Brenda Posadas MD Admit Provider Active Star t: June 29, 2024 End: July 03, 2024 Dr. Brenda Posadas MD Other Provider Active Star t: June 29, 2024 End: July 03, 2024 Dr. Nicole Trujillo DO Attending Provider Active S tart: June 29, 2024 End: July 03, 2024 Dr. Nichelle Mcneil MD Other Provider Active Start: June 29, 2024 End: July 03, 2024 Team Status: Active Member Role Status Dates [facility] Primary Care Provider A ctive Start: June 30, 2024 Dr. Davis Ibarra DO Emergency Provider Active Start: June 30, 2024 Dr. Brenda Posadas MD Admit Provider Active Star t: June 30, 2024 Dr. Brenda Posadas MD Other Provider Active Star t: June 30, 2024 Dr. Nicole Trujillo DO Attending Provider Active S tart: June 30, 2024 Dr. Nicole Trujillo DO Other Provider Active Start : June 30, 2024 Team Status: Active Member Role Status Dates [facility] Primary Care Provider A ctive Start: July 01, 2024 Dr. Davis Ibarra DO Emergency Provider Active Start: July 01, 2024 Dr. Brenda Posadas MD Admit Provider Active Star t: July 01, 2024 Dr. Brenda Posadas MD Other Provider Active Star t: July 01, 2024 Dr. Nicole Trujillo DO Attending Provider Active S tart: July 01, 2024 Dr. Nicole Trujillo DO Other Provider Active Start : July 01, 2024 Dr. Nichelle Mcneil MD Other Provider Active Start: July 01, 2024 Team Status: Active Member Role Status Dates [facility] Primary Care Provider A ctive Start: July 02, 2024 Dr. Davis Ibarra DO Emergency Provider Active Start: July 02, 2024 Dr. Brenda Posadas MD Admit Provider Active Star t: July 02, 2024 Dr. Brenda Posadas MD Other Provider Active Star t: July 02, 2024 Dr. Nicole Trujillo DO Attending Provider Active S tart: July 02, 2024 Dr. Nicole Trujillo DO Other Provider Active Start : July 02, 2024 Dr. Nichelle Mcneil MD Other Provider Active Start: July 02, 2024 Team Status: Active Member Role Status Dates [facility] Primary Care Provider A ctive Start: July 03, 2024 Dr. Davis Ibarra DO Emergency Provider Active Start: July 03, 2024 Dr. Brenda Posadas MD Admit Provider Active Star t: July 03, 2024 Dr. Brenda Posadas MD Other Provider Active Star t: July 03, 2024 Dr. Nicole Trujillo DO Attending Provider Active S tart: July 03, 2024 Dr. Nicole Trujillo DO Other Provider Active Start : July 03, 2024 Dr. Nichelle Mcneil MD Other Provider Active Start: July 03, 2024 Team Status: Inactive Member Role Status Dates [facility] Primary Care Provider A ctive Start: July 04, 2024 End: July 04, 2024 Dr. Nicole Trujillo DO Attending Provider Active S tart: July 04, 2024 End: July 04, 2024 Dr. Nicole Trujillo DO Referring Provider Active S tart: July 04, 2024 End: July 04, 2024 Team Status: Inactive Member Role Status Dates Dr. Nicole Trujillo DO Attending Provider Active S tart: July 05, 2024 End: July 05, 2024 Dr. Nicole Trujillo DO Referring Provider Active S tart: July 05, 2024 End: July 05, 2024 Zohreh Mckeon [facility], SERVICE DESK DIRECTOR-C Primary Care Provider Activ e Start: July 05, 2024 End: July 05, 2024 Team Status: Inactive Member Role Status Dates Dr. Nicole Trujillo DO Attending Provider Active S tart: July 06, 2024 End: July 06, 2024 Dr. Nicole Trujillo DO Referring Provider Active S tart: July 06, 2024 End: July 06, 2024 [facility], SERVICE DESK DIRECTOR-C Primary Care Provider Activ e Start: July 06, 2024 End: July 06, 2024 Team Status: Inactive Member Role Status Dates Dr. Nicole Trujillo DO Attending Provider Active S tart: July 07, 2024 End: July 07, 2024 Dr. Nicole Trujillo DO Referring Provider Active S tart: July 07, 2024 End: July 07, 2024 Zohreh Terence [facility], SERVICE DESK DIRECTOR-C Primary Care Provider Activ e Start: July 07, 2024 End: July 07, 2024 Team Status: Inactive Member Role Status Dates Dr. Nicole Trujillo DO Attending Provider Active S tart: July 10, 2024 End: July 10, 2024 Dr. Nicole Trujillo DO Referring Provider Active S tart: July 10, 2024 End: July 10, 2024 Zohreh MIRANDA, SERVICE DESK DIRECTOR-C Primary Care Provider Activ e Start: July 10, 2024 End: July 10, 2024 Team Status: Inactive Member Role Status Dates Zohreh [facility], SERVICE DESK DIRECTOR-C Primary Care Provider Activ e Start: July 11, 2024 End: July 11, 2024 Dr. Nicole Trujillo , Attending Provider Active S tart: July 11, 2024 End: July 11, 2024 Dr. Nicole Trujillo , Referring Provider Active S tart: July 11, 2024 End: July 11, 2024 Team Status: Inactive Member Role Status Dates Zohreh MIRANDA, SERVICE DESK DIRECTOR-C Primary Care Provider Activ e Start: August 01, 2024 End: August 01, 2024 Dr. Riccardo Hillman , Attending Provider Active Start: August 01, 2024 End: August 01, 2024 Dr. Riccardo Hillman DO Emergency Provider Active Start: August 01, 2024 End: August 01, 2024 Team Status: Active Member Role Status Dates Zohreh MIRANDA, SERVICE DESK DIRECTOR-C Primary Care Provider Activ e Start: August 26, 2024 Dr. Riccardo Ng MD Attending Provider Active S tart: August 26, 2024 Team Status: Active Member Role Status Dates Zohreh MIRANDA, SERVICE DESK DIRECTOR-C Primary Care Provider Activ e Start: August 26, 2024 Dr. Vaughn Daugherty DO Emergency Provider Activ e Start: August 26, 2024 Dr. Brenda Posadas MD Admit Provider Active Star t: August 26, 2024 Dr. Brenda Posadas MD Attending Provider Active Start: August 26, 2024 Team Status: Inactive Member Role Status Dates Zohreh MIRANDA, SERVICE DESK DIRECTOR-C Primary Care Provider Activ e Start: August 26, 2024 End: September 02, 2024 Dr. Vaughn Daugherty DO Emergency Provider Activ e Start: August 26, 2024 End: September 02, 2024 Dr. Brenda Posadas MD Admit Provider Active Star t: August 26, 2024 End: September 02, 2024 Dr. Brenda Posadas MD Other Provider Active Star t: August 26, 2024 End: September 02, 2024 Dr. Riccardo Ng MD Other Provider Active Start : August 26, 2024 End: September 02, 2024 Dr. Latricia Aaron MD Attending Provider Active Start: August 26, 2024 End: September 02, 2024 Dr. Nicole Trujillo , DO Other Provider Active Start : August 26, 2024 End: September 02, 2024 Team Status: Active Member Role Status Dates Zohreh Terence [facility], SERVICE DESK DIRECTOR-C Primary Care Provider Activ e Start: August 27, 2024 Dr. Vaughn Daugherty , DO Emergency Provider Activ e Start: August 27, 2024 Dr. Brenda Posadas MD Admit Provider Active Star t: August 27, 2024 Dr. Brenda Posadas MD Other Provider Active Star t: August 27, 2024 Dr. Riccardo Ng MD Attending Provider Active S tart: August 27, 2024 Dr. Riccardo Ng MD Other Provider Active Start : August 27, 2024 Dr. Nicole Trujillo , Other Provider Active Start : August 27, 2024 Team Status: Active Member Role Status Dates Zohreh Terence [facility], SERVICE DESK DIRECTOR-C Primary Care Provider Activ e Start: August 27, 2024 Dr. Vaughn Daugherty DO Emergency Provider Activ e Start: August 27, 2024 Dr. Brenda Posadas MD Admit Provider Active Star t: August 27, 2024 Dr. Brenda Posadas MD Other Provider Active Star t: August 27, 2024 Dr. Riccardo Ng MD Other Provider Active Start : August 27, 2024 Dr. Nicole Trujillo , Attending Provider Active S tart: August 27, 2024 Dr. Nicole Trujillo , Other Provider Active Start : August 27, 2024 Team Status: Active Member Role Status Dates Zohreh Terence [facility], SERVICE DESK DIRECTOR-C Primary Care Provider Activ e Start: August 28, 2024 Dr. Vaughn Daugherty , DO Emergency Provider Activ e Start: August 28, 2024 Dr. Brenda Posadas MD Admit Provider Active Star t: August 28, 2024 Dr. Brenda Posadas MD Other Provider Active Star t: August 28, 2024 Dr. Nicole Trujillo , Attending Provider Active S tart: August 28, 2024 Dr. Nicole Trujillo , DO Other Provider Active Start : August 28, 2024 Dr. Riccardo Ng MD Other Provider Active Start : August 28, 2024 Team Status: Active Member Role Status Dates Zohreh M[facility], SERVICE DESK DIRECTOR-C Primary Care Provider Activ e Start: August 29, 2024 Dr. Vaughn Daugherty , DO Emergency Provider Activ e Start: August 29, 2024 Dr. Brenda Posadas MD Admit Provider Active Star t: August 29, 2024 Dr. Brenda Posadas MD Other Provider Active Star t: August 29, 2024 Dr. Nicole Trujillo , DO Attending Provider Active S tart: August 29, 2024 Dr. Nicole Trujillo , DO Other Provider Active Start : August 29, 2024 Dr. Riccardo Ng MD Other Provider Active Start : August 29, 2024 Team Status: Active Member Role Status Dates Zohreh MIRANDA, SERVICE DESK DIRECTOR-C Primary Care Provider Activ e Start: August 30, 2024 Dr. Vaughn Daugherty , DO Emergency Provider Activ e Start: August 30, 2024 Dr. Brenda Posadas MD Admit Provider Active Star t: August 30, 2024 Dr. Brenda Posadas MD Other Provider Active Star t: August 30, 2024 Dr. Nicole Trujillo , DO Attending Provider Active S tart: August 30, 2024 Dr. Nicole Trujillo , DO Other Provider Active Start : August 30, 2024 Dr. Riccardo Ng MD Other Provider Active Start : August 30, 2024 Team Status: Active Member Role Status Dates Zohreh MIRANDA, SERVICE DESK DIRECTOR-C Primary Care Provider Activ e Start: August 31, 2024 Dr. Vaughn Daugherty , DO Emergency Provider Activ e Start: August 31, 2024 Dr. Brenda Posadas MD Admit Provider Active Star t: August 31, 2024 Dr. Brenda Posadas MD Other Provider Active Star t: August 31, 2024 Dr. Nicole Trujillo , DO Attending Provider Active S tart: August 31, 2024 Dr. Nicole Trujillo , DO Other Provider Active Start : August 31, 2024 Dr. Riccardo Ng MD Other Provider Active Start : August 31, 2024 Team Status: Active Member Role Status Dates Zohreh Terence [facility], SERVICE DESK DIRECTOR-C Primary Care Provider Activ e Start: September 01, 2024 Dr. Vaughn Daugherty DO Emergency Provider Activ e Start: September 01, 2024 Dr. Brenda Posadas MD Admit Provider Active Star t: September 01, 2024 Dr. Brenda Posadas MD Other Provider Active Star t: September 01, 2024 Dr. Riccardo Ng MD Other Provider Active Start : September 01, 2024 Dr. Latricia Aaron MD Attending Provider Active Start: September 01, 2024 Dr. Latricia Aaron MD Other Provider Active Star t: September 01, 2024 Dr. Nicole Trujillo , Other Provider Active Start : September 01, 2024 Team Status: Active Member Role Status Dates Zohreh Terence [facility], SERVICE DESK DIRECTOR-C Primary Care Provider Activ e Start: September 01, 2024 Dr. Alli Brito MD Attending Provider Active S tart: September 01, 2024 Team Status: Active Member Role Status Dates [facility]rehdmitriy [facility], SERVICE DESK DIRECTOR-C Primary Care Provider Activ e Start: September 02, 2024 Dr. Vaughn Daugherty DO Emergency Provider Activ e Start: September 02, 2024 Dr. Brenda Posadas MD Admit Provider Active Star t: September 02, 2024 Dr. Brenda Posadas MD Other Provider Active Star t: September 02, 2024 Dr. Riccardo Ng MD Other Provider Active Start : September 02, 2024 Dr. Latricia Aaron MD Attending Provider Active Start: September 02, 2024 Dr. Latricia Aaron MD Other Provider Active Star t: September 02, 2024 Dr. Nicole Trujillo DO Other Provider Active Start : September 02, 2024 Team Status: Active Member Role Status Dates Zohreh Terence [facility], SERVICE DESK DIRECTOR-C Primary Care Provider Activ e Start: August 26, 2024 Dr. Riccardo Ng MD Attending Provider Active S tart: August 26, 2024 Dr. Jeison Abrams , Referring Provider Active Start: August 26, 2024 Team Status: Active Member Role Status Dates Zohrehdmitriy MIRANDA, SERVICE DESK DIRECTOR-C Primary Care Provider Activ e Start: August 27, 2024 Dr. Vaughn Daugherty DO Emergency Provider Activ e Start: August 27, 2024 Dr. Brenda Posadas MD Admit Provider Active Star t: August 27, 2024 Dr. Brenda Posadas MD Other Provider Active Star t: August 27, 2024 Dr. Riccardo Ng MD Attending Provider Active S tart: August 27, 2024 Dr. Riccardo Ng MD Referring Provider Active S tart: August 27, 2024 Dr. Riccardo Ng MD Other Provider Active Start : August 27, 2024 Dr. Nicole Trujillo DO Other Provider Active Start : August 27, 2024 Team Status: Inactive Member Role Status Dates Z[facility]reh Terence [facility], SERVICE DESK DIRECTOR-C Primary Care Provider Activ e Start: September 05, 2024 End: September 05, 2024 Dr. Zack Card DO Emergency Provider Active Start : September 05, 2024 End: September 05, 2024 Team Status: Active Member Role Status Dates Zohreh Terence [facility], SERVICE DESK DIRECTOR-C Primary Care Provider Activ e Start: September 07, 2024 Dr. Davis Ibarra DO Emergency Provider Active Start: September 07, 2024 Dr. Rosaura Crane MD Admit Provider Active St art: September 07, 2024 Dr. Rosaura Crane MD Attending Provider Active Start: September 07, 2024 Dr. Rosaura Crane MD Other Provider Active St art: September 07, 2024 Team Status: Inactive Member Role Status Dates Zohreh Terence [facility], SERVICE DESK DIRECTOR-C Primary Care Provider Activ e Start: September 05, 2024 End: September 05, 2024 Dr. Zack Card DO Attending Provider Active Start : September 05, 2024 End: September 05, 2024 Dr. Zack Card DO Emergency Provider Active Start : September 05, 2024 End: September 05, 2024 Team Status: Active Member Role Status Dates Zohreh Terence [facility], SERVICE DESK DIRECTOR-C Primary Care Provider Activ e Start: September 08, 2024 Dr. Davis Ibarra DO Emergency Provider Active Start: September 08, 2024 Dr. Rosaura Crane MD Admit Provider Active St art: September 08, 2024 Dr. Rosaura Crane MD Other Provider Active St art: September 08, 2024 Dr. Brenda Posadas MD Attending Provider Active Start: September 08, 2024 Dr. Brenda Posadas MD Other Provider Active Star t: September 08, 2024 Team Status: Active Member Role Status Dates [facility]rehdmitriy [facility], SERVICE DESK DIRECTOR-C Primary Care Provider Activ e Start: September 09, 2024 Dr. Davis Ibarra DO Emergency Provider Active Start: September 09, 2024 Dr. Rosaura Crane MD Admit Provider Active St art: September 09, 2024 Dr. Rosaura Crane MD Other Provider Active St art: September 09, 2024 Dr. Brenda Posadas MD Attending Provider Active Start: September 09, 2024 Dr. Brenda Posadas MD Other Provider Active Star t: September 09, 2024 Team Status: Inactive Member Role Status Dates Zohreh Mckeon [facility], SERVICE DESK DIRECTOR-C Primary Care Provider Activ e Start: September 09, 2024 End: September 16, 2024 Dr. Davis Ibarra DO Emergency Provider Active Start: September 09, 2024 End: September 16, 2024 Dr. Rosaura Crane MD Admit Provider Active St art: September 09, 2024 End: September 16, 2024 Dr. Rosaura Crane MD Other Provider Active St art: September 09, 2024 End: September 16, 2024 Dr. Nichelle Mcneil MD Other Provider Active Start: September 09, 2024 End: September 16, 2024 Dr. Latricia Aaron MD Attending Provider Active Start: September 09, 2024 End: September 16, 2024 Dr. Brenda Posadas MD Other Provider Active Star t: September 09, 2024 End: September 16, 2024 Dr. Amish Tariq MD Other Provider Active Start: September 09, 2024 End: September 16, 2024 Team Status: Active Member Role Status Dates Z[facility]reh [facility], SERVICE DESK DIRECTOR-C Primary Care Provider Activ e Start: September 10, 2024 Dr. Davis Ibarra DO Emergency Provider Active Start: September 10, 2024 Dr. Rosaura Crane MD Admit Provider Active St art: September 10, 2024 Dr. Rosaura Crane MD Other Provider Active St art: September 10, 2024 Dr. Brenda Posadas MD Attending Provider Active Start: September 10, 2024 Dr. Brenda Posadas MD Other Provider Active Star t: September 10, 2024 Team Status: Active Member Role Status Dates Zohreh KING, SERVICE DESK DIRECTOR-C Primary Care Provider Activ e Start: September 11, 2024 Dr. Davis Ibarra DO Emergency Provider Active Start: September 11, 2024 Dr. Rosaura Crane MD Admit Provider Active St art: September 11, 2024 Dr. Rosaura Crane MD Other Provider Active St art: September 11, 2024 Dr. Brenda Posadas MD Attending Provider Active Start: September 11, 2024 Dr. Brenda Posadas MD Other Provider Active Star t: September 11, 2024 Dr. Nichelle Mcneil MD Other Provider Active Start: September 11, 2024 Team Status: Active Member Role Status Dates Zohreh MIRANDA, SERVICE DESK DIRECTOR-C Primary Care Provider Activ e Start: September 12, 2024 Dr. Davis Ibarra DO Emergency Provider Active Start: September 12, 2024 Dr. Rosaura Crane MD Admit Provider Active St art: September 12, 2024 Dr. Rosaura Crane MD Other Provider Active St art: September 12, 2024 Dr. Brenda Posadas MD Attending Provider Active Start: September 12, 2024 Dr. Brenda Posadas MD Other Provider Active Star t: September 12, 2024 Dr. Nichelle Mcneil MD Other Provider Active Start: September 12, 2024 Team Status: Active Member Role Status Dates Zohreh MIRANDA, SERVICE DESK DIRECTOR-C Primary Care Provider Activ e Start: September 13, 2024 Dr. Davis Ibarra DO Emergency Provider Active Start: September 13, 2024 Dr. Rosaura Crane MD Admit Provider Active St art: September 13, 2024 Dr. Rosaura Crane MD Other Provider Active St art: September 13, 2024 Dr. Brenda Posadas MD Attending Provider Active Start: September 13, 2024 Dr. Brenda Posadas MD Other Provider Active Star t: September 13, 2024 Dr. Nichelle Mcneil MD Other Provider Active Start: September 13, 2024 Team Status: Active Member Role Status Dates Zohreh MIRANDA, SERVICE DESK DIRECTOR-C Primary Care Provider Activ e Start: September 14, 2024 Dr. Davis Ibarra DO Emergency Provider Active Start: September 14, 2024 Dr. Rosaura Crane MD Admit Provider Active St art: September 14, 2024 Dr. Rosaura Crane MD Other Provider Active St art: September 14, 2024 Dr. Brenda Posadas MD Attending Provider Active Start: September 14, 2024 Dr. Brenda Posadas MD Other Provider Active Star t: September 14, 2024 Dr. Nichelle Mcneil MD Other Provider Active Start: September 14, 2024 Team Status: Active Member Role Status Dates Zohreh MIRANDA, SERVICE DESK DIRECTOR-C Primary Care Provider Activ e Start: September 15, 2024 Dr. Davis Ibarra DO Emergency Provider Active Start: September 15, 2024 Dr. Rosaura Crane MD Admit Provider Active St art: September 15, 2024 Dr. Rosaura Crane MD Other Provider Active St art: September 15, 2024 Dr. Nichelle Mcneil MD Other Provider Active Start: September 15, 2024 Dr. Latricia Aaron MD Attending Provider Active Start: September 15, 2024 Dr. Latricia Aaron MD Other Provider Active Star t: September 15, 2024 Dr. Brenda Posadas MD Other Provider Active Star t: September 15, 2024 Dr. Amish Tariq MD Other Provider Active Start: September 15, 2024 Team Status: Active Member Role Status Dates Zohreh MIRANDA, SERVICE DESK DIRECTOR-C Primary Care Provider Activ e Start: September 16, 2024 Dr. Davis Ibarra DO Emergency Provider Active Start: September 16, 2024 Dr. Rosaura Crane MD Admit Provider Active St art: September 16, 2024 Dr. Rosaura Crane MD Other Provider Active St art: September 16, 2024 Dr. Nichelle Mcneil MD Other Provider Active Start: September 16, 2024 Dr. Latricia Aaron MD Attending Provider Active Start: September 16, 2024 Dr. Latricia Aaron MD Other Provider Active Star t: September 16, 2024 Dr. Brenda Posadas MD Other Provider Active Star t: September 16, 2024 Dr. Amish Tariq MD Other Provider Active Start: September 16, 2024 Team Status: Inactive Member Role Status Dates Zohreh MIRANDA, SERVICE DESK DIRECTOR-C Primary Care Provider Activ e Start: September 09, 2024 End: September 16, 2024 Dr. Davis Ibarra DO Emergency Provider Active Start: September 09, 2024 End: September 16, 2024 Dr. Rosaura Crane MD Admit Provider Active St art: September 09, 2024 End: September 16, 2024 Dr. Rosaura Crane MD Other Provider Active St art: September 09, 2024 End: September 16, 2024 Dr. Nichelle Mcneil MD Other Provider Active Start: September 09, 2024 End: September 16, 2024 Dr. Brenda Posadas MD Other Provider Active Star t: September 09, 2024 End: September 16, 2024 Dr. Amish Tariq MD Other Provider Active Start: September 09, 2024 End: September 16, 2024 Dr. Latricia Aaron MD Attending Provider Active Start: September 09, 2024 End: September 16, 2024 Team Status: Inactive Member Role Status Dates Zohreh Terence [facility], SERVICE DESK DIRECTOR-C Primary Care Provider Activ e Start: September 21, 2024 End: September 21, 2024 Dr. Riccardo Hillman , Emergency Provider Active Start: September 21, 2024 End: September 21, 2024 Team Status: Inactive Member Role Status Dates Zohreh Terence [facility], SERVICE DESK DIRECTOR-C Primary Care Provider Activ e Start: September 21, 2024 End: September 21, 2024 Dr. Riccardo Hillman DO Attending Provider Active Start: September 21, 2024 End: September 21, 2024 Dr. Riccardo Hillman DO Emergency Provider Active Start: September 21, 2024 End: September 21, 2024 Team Status: Inactive Member Role Status Dates Zohreh Terence [facility], SERVICE DESK DIRECTOR-C Primary Care Provider Activ e Start: September 29, 2024 End: September 29, 2024 Dr. Zack Card , Emergency Provider Active Start : September 29, 2024 End: September 29, 2024 Team Status: Active Member Role/Relationship Status Dates Zohreh Mckeon [facility], SERVICE DESK DIRECTOR-C Primary Care Provider Activ e Team Status: Active Member Role/Relationship Status Dates Zohreh Mckeon [facility], SERVICE DESK DIRECTOR-C Primary Care Provider Activ e Start: August 26, 2024 Dr. Riccardo Ng MD Attending Provider Active S tart: August 26, 2024 Dr. Jeison Abrams , Referring Provider Active Start: August 26, 2024 Team Status: Inactive Member Role/Relationship Status Dates Zohreh Terence [facility], SERVICE DESK DIRECTOR-C Primary Care Provider Activ e Start: August 26, 2024 End: September 02, 2024 Dr. Vaughn Daugherty , Emergency Provider Activ e Start: August 26, 2024 End: September 02, 2024 Dr. Brenda Posadas MD Admit Provider Active Star t: August 26, 2024 End: September 02, 2024 Dr. Brenda Posadas MD Other Provider Active Star t: August 26, 2024 End: September 02, 2024 Dr. Riccardo Ng MD Other Provider Active Start : August 26, 2024 End: September 02, 2024 Dr. Latricia Aaron MD Attending Provider Active Start: August 26, 2024 End: September 02, 2024 Dr. Nicole Trujillo , Other Provider Active Start : August 26, 2024 End: September 02, 2024 Team Status: Active Member Role/Relationship Status Dates Zohreh MIRANDA, SERVICE DESK DIRECTOR-C Primary Care Provider Activ e Start: August 27, 2024 Dr. Vaughn Daugherty , Emergency Provider Activ e Start: August 27, 2024 Dr. Brenda Posadas MD Admit Provider Active Star t: August 27, 2024 Dr. Brenda Posadas MD Other Provider Active Star t: August 27, 2024 Dr. Riccardo Ng MD Attending Provider Active S tart: August 27, 2024 Dr. Riccardo Ng MD Referring Provider Active S tart: August 27, 2024 Dr. Riccardo Ng MD Other Provider Active Start : August 27, 2024 Dr. Nicole Trujillo DO Other Provider Active Start : August 27, 2024 Team Status: Active Member Role/Relationship Status Dates Zohreh MIRANDA, SERVICE DESK DIRECTOR-C Primary Care Provider Activ e Start: August 27, 2024 Dr. Vaughn Daugherty DO Emergency Provider Activ e Start: August 27, 2024 Dr. Brenda Posadas MD Admit Provider Active Star t: August 27, 2024 Dr. Brenda Posadas MD Other Provider Active Star t: August 27, 2024 Dr. Riccardo Ng MD Other Provider Active Start : August 27, 2024 Dr. Nicole Trujillo DO Attending Provider Active S tart: August 27, 2024 Dr. Nicole Trujillo , Other Provider Active Start : August 27, 2024 Team Status: Active Member Role/Relationship Status Dates Zohreh MIRANDA, SERVICE DESK DIRECTOR-C Primary Care Provider Activ e Start: August 28, 2024 Dr. Vaughn Daugherty , DO Emergency Provider Activ e Start: August 28, 2024 Dr. Brenda Posadas MD Admit Provider Active Star t: August 28, 2024 Dr. Brenda Posadas MD Other Provider Active Star t: August 28, 2024 Dr. Nicole Trujillo , DO Attending Provider Active S tart: August 28, 2024 Dr. Nicole Trujillo , DO Other Provider Active Start : August 28, 2024 Dr. Riccardo Ng MD Other Provider Active Start : August 28, 2024 Team Status: Active Member Role/Relationship Status Dates Zohreh KING, SERVICE DESK DIRECTOR-C Primary Care Provider Activ e Start: August 29, 2024 Dr. Vaughn Daugherty DO Emergency Provider Activ e Start: August 29, 2024 Dr. Brenda Posadas MD Admit Provider Active Star t: August 29, 2024 Dr. Brenda Posadas MD Other Provider Active Star t: August 29, 2024 Dr. Nicole Trujillo , DO Attending Provider Active S tart: August 29, 2024 Dr. Nicole Trujillo , DO Other Provider Active Start : August 29, 2024 Dr. Riccardo Ng MD Other Provider Active Start : August 29, 2024 Team Status: Active Member Role/Relationship Status Dates Zohrehdmitriy [facility], SERVICE DESK DIRECTOR-C Primary Care Provider Activ e Start: August 30, 2024 Dr. Vaughn Daugherty DO Emergency Provider Activ e Start: August 30, 2024 Dr. Brenda Posadas MD Admit Provider Active Star t: August 30, 2024 Dr. Brenda Posadas MD Other Provider Active Star t: August 30, 2024 Dr. Nicole Trujillo , DO Attending Provider Active S tart: August 30, 2024 Dr. Nicole Trujillo , DO Other Provider Active Start : August 30, 2024 Dr. Riccardo Ng MD Other Provider Active Start : August 30, 2024 Team Status: Active Member Role/Relationship Status Dates Zohrehdmitriy MIRANDA, SERVICE DESK DIRECTOR-C Primary Care Provider Activ e Start: August 31, 2024 Dr. Vaughn Daugherty DO Emergency Provider Activ e Start: August 31, 2024 Dr. Brenda Posadas MD Admit Provider Active Star t: August 31, 2024 Dr. Brenda Posadas MD Other Provider Active Star t: August 31, 2024 Dr. Nicole Trujillo DO Attending Provider Active S tart: August 31, 2024 Dr. Nicole Trujillo DO Other Provider Active Start : August 31, 2024 Dr. Riccardo Ng MD Other Provider Active Start : August 31, 2024 Team Status: Active Member Role/Relationship Status Dates Zohreh KINGC, SERVICE DESK DIRECTOR-C Primary Care Provider Activ e Start: September 01, 2024 Dr. Vaughn Daugherty DO Emergency Provider Activ e Start: September 01, 2024 Dr. Brenda Posadas MD Admit Provider Active Star t: September 01, 2024 Dr. Brenda Posadas MD Other Provider Active Star t: September 01, 2024 Dr. Riccardo Ng MD Other Provider Active Start : September 01, 2024 Dr. Latricia Aaron MD Attending Provider Active Start: September 01, 2024 Dr. Latricia Aaron MD Other Provider Active Star t: September 01, 2024 Dr. Nicole Trujillo DO Other Provider Active Start : September 01, 2024 Team Status: Active Member Role/Relationship Status Dates Zohrehlurdes KINGC, SERVICE DESK DIRECTOR-C Primary Care Provider Activ e Start: September 01, 2024 Dr. Alli Brito MD Attending Provider Active S tart: September 01, 2024 Team Status: Active Member Role/Relationship Status Dates Zohrehlurdes KINGC, SERVICE DESK DIRECTOR-C Primary Care Provider Activ e Start: September 02, 2024 Dr. Vaughn Daugherty DO Emergency Provider Activ e Start: September 02, 2024 Dr. Brenda Posadas MD Admit Provider Active Star t: September 02, 2024 Dr. Brenda Posadas MD Other Provider Active Star t: September 02, 2024 Dr. Riccardo Ng MD Other Provider Active Start : September 02, 2024 Dr. Latricia Aaron MD Attending Provider Active Start: September 02, 2024 Dr. Latricia Aaron MD Other Provider Active Star t: September 02, 2024 Dr. Nicole Trujillo DO Other Provider Active Start : September 02, 2024 Team Status: Inactive Member Role/Relationship Status Dates Zohreh MIRANDA, SERVICE DESK DIRECTOR-C Primary Care Provider Activ e Start: September 05, 2024 End: September 05, 2024 Dr. Zack Card DO Attending Provider Active Start : September 05, 2024 End: September 05, 2024 Dr. Zack Card DO Emergency Provider Active Start : September 05, 2024 End: September 05, 2024 Team Status: Active Member Role/Relationship Status Dates Zohreh KING, SERVICE DESK DIRECTOR-C Primary Care Provider Activ e Start: September 07, 2024 Dr. Davis Ibarra DO Emergency Provider Active Start: September 07, 2024 Dr. Rosaura Crane MD Admit Provider Active St art: September 07, 2024 Dr. Rosaura Crane MD Attending Provider Active Start: September 07, 2024 Dr. Rosaura Crane MD Other Provider Active St art: September 07, 2024 Team Status: Active Member Role/Relationship Status Dates Zohreh KING, SERVICE DESK DIRECTOR-C Primary Care Provider Activ e Start: September 08, 2024 Dr. Davis Ibarra DO Emergency Provider Active Start: September 08, 2024 Dr. Rosaura Crane MD Admit Provider Active St art: September 08, 2024 Dr. oRsaura Crane MD Other Provider Active St art: September 08, 2024 Dr. Brenda Posadas MD Attending Provider Active Start: September 08, 2024 Dr. Brenda Posadas MD Other Provider Active Star t: September 08, 2024 Team Status: Active Member Role/Relationship Status Dates Zohreh KING, SERVICE DESK DIRECTOR-C Primary Care Provider Activ e Start: September 09, 2024 Dr. Davis Ibarra DO Emergency Provider Active Start: September 09, 2024 Dr. Rosaura Crane MD Admit Provider Active St art: September 09, 2024 Dr. Rosaura Crane MD Other Provider Active St art: September 09, 2024 Dr. Brenda Posadas MD Attending Provider Active Start: September 09, 2024 Dr. Brenda Posadas MD Other Provider Active Star t: September 09, 2024 Team Status: Inactive Member Role/Relationship Status Dates Zohreh Mckeon [facility], SERVICE DESK DIRECTOR-C Primary Care Provider Activ e Start: September 09, 2024 End: September 16, 2024 Dr. Davis Ibarra DO Emergency Provider Active Start: September 09, 2024 End: September 16, 2024 Dr. Rosaura Crane MD Admit Provider Active St art: September 09, 2024 End: September 16, 2024 Dr. Rosaura Crane MD Other Provider Active St art: September 09, 2024 End: September 16, 2024 Dr. Nichelle Mcneil MD Other Provider Active Start: September 09, 2024 End: September 16, 2024 Dr. Brenda Posadas MD Other Provider Active Star t: September 09, 2024 End: September 16, 2024 Dr. Amish Tariq MD Other Provider Active Start: September 09, 2024 End: September 16, 2024 Dr. Latricia Aaron MD Attending Provider Active Start: September 09, 2024 End: September 16, 2024 Team Status: Active Member Role/Relationship Status Dates Zohreh MIRANDA, SERVICE DESK DIRECTOR-C Primary Care Provider Activ e Start: September 10, 2024 Dr. Davis Ibarra DO Emergency Provider Active Start: September 10, 2024 Dr. Rosaura Crane MD Admit Provider Active St art: September 10, 2024 Dr. Rosaura Crane MD Other Provider Active St art: September 10, 2024 Dr. Brenad Posadas MD Attending Provider Active Start: September 10, 2024 Dr. Brenda Posadas MD Other Provider Active Star t: September 10, 2024 Team Status: Active Member Role/Relationship Status Dates Zohreh MIRANDA, SERVICE DESK DIRECTOR-C Primary Care Provider Activ e Start: September 11, 2024 Dr. Davis Ibarra DO Emergency Provider Active Start: September 11, 2024 Dr. Rosaura Crane MD Admit Provider Active St art: September 11, 2024 Dr. Rosaura Crane MD Other Provider Active St art: September 11, 2024 Dr. Brenda Posadas MD Attending Provider Active Start: September 11, 2024 Dr. Brenda Posadas MD Other Provider Active Star t: September 11, 2024 Dr. Nichelle Mcneil MD Other Provider Active Start: September 11, 2024 Team Status: Active Member Role/Relationship Status Dates Zohreh MIRANDA, SERVICE DESK DIRECTOR-C Primary Care Provider Activ e Start: September 12, 2024 Dr. Davis Ibarra DO Emergency Provider Active Start: September 12, 2024 Dr. Rosaura Crane MD Admit Provider Active St art: September 12, 2024 Dr. Rosaura Crane MD Other Provider Active St art: September 12, 2024 Dr. Brenda Posadas MD Attending Provider Active Start: September 12, 2024 Dr. Brenda Posadas MD Other Provider Active Star t: September 12, 2024 Dr. Nichelle Mcneil MD Other Provider Active Start: September 12, 2024 Team Status: Active Member Role/Relationship Status Dates Zohreh Mckeon [facility], SERVICE DESK DIRECTOR-C Primary Care Provider Activ e Start: September 13, 2024 Dr. Davis Ibarra DO Emergency Provider Active Start: September 13, 2024 Dr. Rosaura Crane MD Admit Provider Active St art: September 13, 2024 Dr. Rosaura Crane MD Other Provider Active St art: September 13, 2024 Dr. Brenda Posadas MD Attending Provider Active Start: September 13, 2024 Dr. Brenda Posadas MD Other Provider Active Star t: September 13, 2024 Dr. Nichelle Mcneil MD Other Provider Active Start: September 13, 2024 Team Status: Active Member Role/Relationship Status Dates Zohreh Mckeon [facility], SERVICE DESK DIRECTOR-C Primary Care Provider Activ e Start: September 14, 2024 Dr. Davis Ibarra DO Emergency Provider Active Start: September 14, 2024 Dr. Rosaura Crane MD Admit Provider Active St art: September 14, 2024 Dr. Rosaura Crane MD Other Provider Active St art: September 14, 2024 Dr. Brenda Posadas MD Attending Provider Active Start: September 14, 2024 Dr. Brenda Posadas MD Other Provider Active Star t: September 14, 2024 Dr. Nichelle Mcneil MD Other Provider Active Start: September 14, 2024 Team Status: Active Member Role/Relationship Status Dates Zohreh Mckeon [facility], SERVICE DESK DIRECTOR-C Primary Care Provider Activ e Start: September 15, 2024 Dr. Davis Ibarra DO Emergency Provider Active Start: September 15, 2024 Dr. Rosaura Crane MD Admit Provider Active St art: September 15, 2024 Dr. Rosaura Crane MD Other Provider Active St art: September 15, 2024 Dr. Nichelle Mcneil MD Other Provider Active Start: September 15, 2024 Dr. Latricia Aaron MD Attending Provider Active Start: September 15, 2024 Dr. Latricia Aaron MD Other Provider Active Star t: September 15, 2024 Dr. Brenda Posadas MD Other Provider Active Star t: September 15, 2024 Dr. Amish Tariq MD Other Provider Active Start: September 15, 2024 Team Status: Active Member Role/Relationship Status Dates Zohreh KINGC, SERVICE DESK DIRECTOR-C Primary Care Provider Activ e Start: September 16, 2024 Dr. Davis Ibarra DO Emergency Provider Active Start: September 16, 2024 Dr. Rosaura Crane MD Admit Provider Active St art: September 16, 2024 Dr. Rosaura Crane MD Other Provider Active St art: September 16, 2024 Dr. Nichelle Mcneil MD Other Provider Active Start: September 16, 2024 Dr. Latricia Aaron MD Attending Provider Active Start: September 16, 2024 Dr. Latricia Aaron MD Other Provider Active Star t: September 16, 2024 Dr. Brenda Posadas MD Other Provider Active Star t: September 16, 2024 Dr. Amish Tariq MD Other Provider Active Start: September 16, 2024 Team Status: Inactive Member Role/Relationship Status Dates Zohreh KINGC, SERVICE DESK DIRECTOR-C Primary Care Provider Activ e Start: September 21, 2024 End: September 21, 2024 Dr. Riccardo Hillman DO Attending Provider Active Start: September 21, 2024 End: September 21, 2024 Dr. Riccardo Hillman DO Emergency Provider Active Start: September 21, 2024 End: September 21, 2024 Team Status: Inactive Member Role/Relationship Status Dates Zohreh Mckeon [facility], SERVICE DESK DIRECTOR-C Primary Care Provider Activ e Start: September 29, 2024 End: September 29, 2024 Dr. Zack Card DO Attending Provider Active Start : September 29, 2024 End: September 29, 2024 Dr. Zack Card DO Emergency Provider Active Start : September 29, 2024 End: September 29, 2024 Team Status: Inactive Member Role/Relationship Status Dates Zohreh Mckeon [facility], SERVICE DESK DIRECTOR-C Primary Care Provider Activ e Start: December 12, 2024 End: December 12, 2024 Dr. Derek Paniagua MD Referring Provider Active Sta rt: December 12, 2024 End: December 12, 2024 Dr. Derek Paniagua MD Emergency Provider Active Sta rt: December 12, 2024 End: December 12, 2024 Source Comments (unrecognize d section and content) In the event this informatio n is protected by the Federal Confidentiality of Alcohol and Drug Abuse Patient Records regulations: The Federal rules restrict any use of the information to criminally investigate or prosecute any alcohol or drug abuse patient.[facility] the event this information is protected by the Federal Confidentiality of Alcohol and Drug Abuse Patient Records regulations: The Federal rules restrict any use of the information to criminally investigate or prosecute any alcohol or drug abuse patient.[facility] the event this information is protected by the Federal Confidentiality of Alcohol and Drug Abuse Patient Records regulations: The Federal rules restrict any use of the information to criminally investigate or prosecute any alcohol or drug abuse patient.[facility] the event this information is protected by the Federal Confidentiality of Alcohol and Drug Abuse Patient Records regulations: The Federal rules restrict any use of the information to criminally investigate or prosecute any alcohol or drug abuse patient.[facility] the event this information is protected by the Federal Confidentiality of Alcohol and Drug Abuse Patient Records regulations: The Federal rules restrict any use of the information to criminally investigate or prosecute any alcohol or drug abuse patient.[facility] the event this information is protected by the Federal Confidentiality of Alcohol and Drug Abuse Patient Records regulations: The Federal rules restrict any use of the information to criminally investigate or prosecute any alcohol or drug abuse patient.[facility] the event this information is protected by the Federal Confidentiality of Alcohol and Drug Abuse Patient Records regulations: The Federal rules restrict any use of the information to criminally investigate or prosecute any alcohol or drug abuse patient.[facility] the event this information is protected by the Federal Confidentiality of Alcohol and Drug Abuse Patient Records regulations: The Federal rules restrict any use of the information to criminally investigate or prosecute any alcohol or drug abuse patient.[facility] the event this information is protected by the Federal Confidentiality of Alcohol and Drug Abuse Patient Records regulations: The Federal rules restrict any use of the information to criminally investigate or prosecute any alcohol or drug abuse patient.[facility] the event this information is protected by the Federal Confidentiality of Alcohol and Drug Abuse Patient Records regulations: The Federal rules restrict any use of the information to criminally investigate or prosecute any alcohol or drug abuse patient.[facility] Reason for Visit (unrecogniz ed section and content) Reason Comments Appointment Radiology XR Reason Comments Patient Question Abscess Reason Comments Patient Update Reason Comments Contact Center Call Patient Update PHYSICIAN INSTRUCTIONS Reason Comments returned [facility] call Patient Update Reason Comments Orders [facility] order contact /[facility]NF ltr Reason Comments Orders [facility] deferral Reason Comments Appointment Made multiple attemp ts to contact patient to schedule appointment with regarding incidental growth found in adrenal gland, not able to contact. Scheduled appointment with for 02/20 at 1:30 PM and mailed out appointment reminder. Reason Comments Fracture Closed 3-part fractu re of proximal humerus FOR RECORDS PERTAINING TO PATIENTS WHO ARE OR HAVE BEEN ENROLLED IN A CHEMICAL DEPENDENCY/SUBSTANCEABUSE PROGRAM, SOME INFORMATION MAY BE OMITTED. This clinical summary was aggregated from multiple sources. Caution should be exercised in using it in the provision of clinical care. This summary normalizes information from multiple sources, and as a consequence, information in this document may materially change the coding, format and clinical context of patient data. In addition, data may be omitted in some cases. CLINICAL DECISIONS SHOULD BE BASED ON THE PRIMARY CLINICAL RECORDS. [facility] [facility]. provides no warranty or guarantee of the accuracy or completeness of information in this document.
--- OUTSIDE RECORDS SUMMARY | 2025-01-29 20:41 | XMS RPT_ITS | CCD ---
Author Organization [facility] CliniSyde Care Team Providers Care Copy Clerk Name Role Phone FERCHO OSBORNE Admitting Unavailable THUESDEX JOYNER () Attending Unavailable JEVON SHERMAN Consulting [...] Dr. Riccardo Ng Attending Provider [phone] Dr. Riccrado Ng Referring Provider [phone] Dr. Riccardo Ng Other Provider [facility], Nathaly Lainez Primary Care Pro vider Dr. Nathaly Lainez Primary Care Provider Dr. Nathaly Lainez Referring Provider MARTIN Stephen Attending Provider [phone] Dr. Alli Brito Attending Provider [phone] MARTIN Montero Attending Provider Dr. Riccardo Ng Attending Provider [phone] Riccardo Ng Referring Provider [phone] Riccardo Ng Other Provider [facility], [place] Primary Care Pro vider Dr. Nathaly Lainez Primary Care Provider Dr. Nathaly Lainez Referring Provider [facility], [place]aly Lainez Referring Provid er MD [...] [phone] Riccardo Ng Other Provider [facility], [place] Primary Care Pro vider MARTIN Montero Referring Provider [phone] [facility], Nathaly Lainez Referring Provid er MD Jeremiah Rawls Emergency Provider Dr. Jeison Forde Admit Provider Dr. Jeison Forde Referring Provider Dr. Jeison Forde Other Provider Dr. Sabina Rosenberg Attending Provider Dr. Sabina Rosenberg Other Provider Dr. Sanjiv Alcantar Attending Provider MARTIN Mathis Attending Provider MARTIN Mathis Referring Provider Dr. Yvette Hanley Referring Provider [facility] Primary Care Pro vider Dr. Riccardo Ng Attending Provider Dr. Yvette Hanley Referring Provider MARTIN Mathis Referring Provider Dr. Yvette Hanley Emergency Provider Dr. Sabina Rosenberg Admit Provider Dr. Sabina Rosenberg Attending Provider Dr. Sabina Rosenberg Other Provider [facility] Primary Care Pro vider Dr. Zack Card Emergency Provider Dr. Brandon Adames Admit Provider Dr. Brandon Adames Attending Provider Dr. Brandon Adames Other Provider [facility] Primary Care Pro vider Dr. Yvette Hanley Emergency Provider Dr. Sabina Rosenberg Admit Provider Dr. Sabina Rosenberg Attending Provider Dr. Sabina Rosenberg Other Provider Dr. Zack Card Emergency Provider Dr. Brandon Adames Admit Provider Dr. Brandon Adames Attending Provider Dr. Brandon Adames Other Provider [facility], [facility] Referring Provid er Dr. Alli Brito Attending Provider Roof LEATHER ETCHER, LEATHER ETCHER-Gideon Rashid Attending Provider Dr. Lino Sousa Attending Provider [facility] Primary Care Pro vider Dr. Yvette Hanley Emergency Provider Dr. Sabina Rosenberg Admit Provider Dr. Sabina Rosenberg Attending Provider Dr. Sabina Rosenberg Other Provider [facility] Primary Care Pro vider [...] Provider Unavailable Dr. Lei Justin Referring Provider [facility] Primary Care Pro vider Dr. Riccardo Hillman Emergency Provider Dr. Talisha Boykin Admit Provider Dr. Talisha Boykin Other Provider Dr. Jeremy Alexander Attending Provider Benjamin, Dr. Luna Other Provider Dr. Moody Gallagher Other Provider Ashutosh, Dr. Talisha Landry Attending Provider Benjamin, Dr. Luna Attending Provider [facility], [facility] Primary Care Pro vider Dr. Ananda Coyle [...] Provider Ashutosh, Dr. Talisha Landry [facility] Talisha Landry Attending Provider Korjaycee, Dr. Talisha Landry Other Provider Benjamin, Dr. Luna Other Provider Dr. Jeremy Alexander Attending Provider Dr. Moody Gallagher Other Provider Terence LEATHER ETCHER, Zohreh Unavailable [facility] Care Provider [facility], [facility] Primary Care Pro vider [facility] Care Provider No, Pcp Primary Care Provider Unavailmir e MICHEL HERNANDEZ, BRITTANEY Sue Primary Care Physician BRITTANEY PEARSON MD Primary Care Unavailable DARIEL SANCHEZ, DR RAYMUNDO Springer Attending Unavailabl e IBETH ALEJANDRO Consulting Unavailable [facility] Unavailable LASH-RITTER, TATIANA A Admitting Unavailab le LASH-RITTER, TATIANA A Attending Unavailab le [facility] Unavailable MUAKKASSA, FARID ANU Admitting Unavailabl e MUAKKASSA, FARID ANU Attending Unavailabl e DIYA MAY Consulting Unavailable [facility] Primary Care Pro vider [...] Dr. Nicole Trujillo DO Referring Provider Terence LEATHER ETCHER-C, Zohreh Primary Care Provider Dr. Riccardo Hillman DO Attending Provider Dr. Riccardo Hillman DO Emergency Provider Dr. Riccardo Ng MD Attending Provider Dr. Vaughn Daugherty DO Emergency Provider Cuauhtemoc HERNANDEZ, Dr. Gutierrez Attending Provider [facility] Primary Care Pro vider [...] Chandni HERNANDEZ, Dr. Amish Bashir Other Provider [facility] Primary Care Provider Cuauhtemoc HERNANDEZ, Dr. Gutierrez [...] Dr. Derek Paniagua MD Emergency Provider Terence [facility] Primary Care Unavailabl e Derek Paniagua Referring Unavailable Derek Paniagua Attending Unavailable [facility] Unavailabl Zack Car Attending Unavailable Talisha Boykin Attending Unavailable [facility], [facility] Unavailable Rosaura Crane Admitting Unavailable Rosaura Crane Consulting Unavailable Nicole Trujillo Admitting Unavailable Nicole Trujillo Consulting Unavailable [facility], [facility] Unavailable Talisha Boykin Attending Unavailable Jeremy Alexander Consulting Unavailable Nichelle Mcneil Attending Unavailable [facility] Unavailabl e Nichelle Mcneil Referring Unavailable [facility] Unavailabl e Nichelle Mcneil Attending Unavailable Nichelle Mcneil Referring Unavailable Ronnie Nicole Referring Unavailable Nicole Trujillo Attending Unavailable [facility] Unavailabl e Ronnie Nicole Referring Unavailable Nicole Trujillo Attending Unavailable [facility] Unavailable Jeremiah Rawls Attending Unavailable Nicole Trujillo Attending Unavailable Ronnie Nicole Referring Unavailable [facility] Unavailabl e Ronnie, Nicole Referring Unavailable Roger Trujilloyn Attending Unavailable [facility] Unavailabl e Ronnie, Nicole Referring Unavailable Roger Trujilloyn Attending Unavailable [facility] Unavailabl e Ronnie Nicole Referring Unavailable Nicole Trujillo Attending Unavailable [facility], [facility] Unavailable [facility] UnavailZack Edward Attending Unavailable Nichelle Mcneil Attending Unavailable [facility] Unavailabl e Nichelle Mcneil Referring Unavailable Nichelle Mcneil Attending Unavailable [facility] Unavailabl e Tarun Nichelle Referring Unavailable Nichelle Mcneil Attending Unavailable [facility] Unavailabl e Nichelle Mcneil Referring Unavailable Nicole Trujillo Attending Unavailable Brenda Posadas Admitting Unavailable [facility] Unavailabl e Brenda Posadas Consulting Unavailable Riccardo Ng Consulting Unavailable Ronnie Nicole Consulting Unavailable [facility] Unavailabl Rosaura Dominguez Admitting Unavailable Latricia Aaron Attending Unavailable Rosaura Crane Consulting Unavailable Nichelle Mcneil Consulting Unavailable Brenda Posadas Consulting Unavailable Amish Tariq Consulting Unavailable Latricia Aaron Consulting Unavailable Kotsonis, Brandon F Consulting Unavailable Kotseloisas, Brandon F Admitting Unavailable [facility] Unavailable Jeremy Alexander Attending Unavailable Jeremy Alexander Consulting Unavailable Patriciaam Talisha Gris Attending Unavailable [facility] Unavailable White, Rosaura L Consulting Unavailable White, Rosaura L Admitting Unavailable Koram, Talisha Gris Consulting Unavailable [facility] Unavailabl Latricia Rust Attending Unavailable White, Rosaura L Consulting Unavailable White, Rosaura L Admitting Unavailable Nichelle Mcneil Consulting Unavailable PosadasBrenda Consulting Unavailable Amish Tariq Consulting Unavailable Brenda Posadas Attending Unavailable [facility] Unavailabl e White, Rosaura L Consulting Unavailable White, Rosaura L Admitting Unavailable Brenda Posadas Attending Unavailable rBenda Posadas Consulting Unavailable Rosaura Crane L Attending Unavailable Latricia Aaron Attending Unavailable Latricia Aaron Consulting Unavailable Riccardo Ng Attending Unavailable Riccardo Ng Referring Unavailable Nicole Trujillo Attending Unavailable Nicole Trujillo Admitting Unavailable Nicole Trujillo Consulting Unavailable [facility] Unavailable [facility] Unavailabl Alli Head Attending Unavailable [facility] Referring Unavailable Bina Saldana Attending Unavailable Riccardo Ng Attending Unavailable [facility] UnavailJeison Garcia Referring Unavailable Nicole Trujillo Attending Unavailable Brenda Posadas Admitting Unavailable Brenda Posadas Consulting Unavailable [facility] Unavailable Nichelle Mcneil Consulting Unavailable Nicole Trujillo Consulting Unavailable Nicole Trujillo Referring Unavailable Nicole Trujillo Attending Unavailable [facility] Unavailabl e Nichelle Mcneil Referring Unavailable Nichelle Mcneil Attending Unavailable Nichelle Mcneil Attending Unavailable [facility] Unavailabl e Nichelle Mcneil Referring Unavailable Gigionis, Brandon F Admitting Unavailable GigionisSonuBrandon F Consulting Unavailable [facility] Unavailable Benjamin, Jeremy Attending Unavailable Posadas, Brenda Admitting Unavailable Posadas, Brenda Consulting Unavailable Latricia Aaron Attending Unavailable [facility] UnavailRiccardo Bourne Consulting Unavailable Nicole Trujillo Consulting Unavailable Riccardo Hillman Attending Unavailable [facility] Unavailabl e Nicole Trujillo Attending Unavailable Posadas, Brenda Admitting Unavailable [facility], [facility] Unavailable Cuauhteomc, Brenda Consulting Unavailable Nichelle Mcneil Consulting Unavailable Nicole Trujillo Referring Unavailable Nicole Trujillo Attending Unavailable [facility] Unavailabl e [facility] UnavailRiccardo Hutchinson Attending Unavailable Brandon Adames Attending Unavailable Posadas, Brenda Admitting Unavailable Posadas, Brenda Consulting Unavailable [facility] Unavailabl Brenda Vasquez Attending Unavailable Posadas, Brenda Admitting Unavailable [facility], [facility] Unavailable Posadas, Brenda Consulting Unavailable Brenda Posadas Attending Unavailable Talisha Boykin Attending Unavailable Jeremy Alexander Consulting Unavailable Rosie Boykina Gris Consulting Unavailable Jeremy Alexander Attending Unavailable Rosaura Crane Attending Unavailable Nichelle Mcneil Attending Unavailable [facility] UnavailNichelle Holly Referring Unavailable Allergies Allergy Classification Reported Allergen(s) Allergy Type Date of Onset Reaction(s) Facility (20 sources) Latex; Translations: [LATEX] Propensity to adverse reactions to drug (disorder) [address] [facility] Other [facility] Medications Current Medications Medication Drug Class(es) [...] on above: Take 3 tablets by mo [facility] every 6 hours as needed for pain. [id number] actuat albuterol 0.09 mg/actuat metered dose [...] prescriber. docusate sodium 50 mg / sennosides, residential 8.6 mg oral tablet (20 sources) Start: [...] water. 0 04/12/2022 Active polyethylene glycol 3350 09894 mg powder for oral solution (20 sources) [...] th every six hours as needed HYDROcodone-acetaminophen ([place]) 5-325 MG tablet Take 1 tablet by [...] Start: 08-21-2019 take 2 tablets by mo [facility] every four hours as needed oxycodone-acetaminophen [...] Start: 11-19-2023 End: 12-29-2023 Start: 03-27-2022 Nyamyc [id number] UNIT/GM powder APPLY THREE TIMES DAILY 0 03/27/2022 Active omeprazole 40 mg delayed rel ease oral capsule (20 sources) Proton Pump Inhibitor Start: 02-03-2023 End: 04-18-2023 Start: 01-29-2023 End: 02-27-2023 Start: 07-25-2022 End: 01-29-2023 Start: 03-17-2019 take 1 capsule by mo [facility] in the morning omeprazole (PriLOSEC) 20 [...] Ischemic cardiomyopathy; Translations: [Atherosclerotic heart disease of [place] coronary artery without angina pectoris] Onset: 8 [...] 8 12-30-2020 Episodic Other aftercare (1 source) senior living (current) use of insulin; Translations: [senior living (current) use of insulin] Onset: 9 Episodic Other aftercare (20 sources) Surgical follow-up; Translations: [Encounter for surgical aftercare following surgery on the circulatory system] 09-12-2022 Episodic Other aftercare (13 sources) Long-term current use of anticoagulant; Translations: [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2500 ####[facility] [address] [place], [place], [address] GAP 11 Normal 10-16 [facility] Comment on above: Performed By: #### L 500.2500 ####[facility] [address] [place], [address] Potassium [Moles/Vol] 3.9 mmol/L Normal 3.3-5.1 [facility] Comment on above: Performed By: #### L 500.2500 ####[facility] [address] [place], [address] Bedside Glucoseon 12-12-2024 FINGERSTICK GLU 346 mg/dL High 74-106 [facility] Comment on above: Result Comment: TALIA CHAMBERS OF PATIENT CARE PER NURSING PROTOCOL Performed By: #### L 501.080 ####[facility] [address] [place], [place], [address] Carbon dioxide, total [Moles /volume] in Central venous bloodOrdered By: Darlyn Galeano on 12-12-2024 CO2 [Moles/Vol] 23.3 mmol/L Normal 21.0-32.0 [facility] Comment on above: Performed By: #### L 500.2500 ####[facility] [address] [place], [address] Chloride assayOrdered By: Dipika Galeano on 12-12-2024 Chloride [Moles/Vol] 98 mmol/L Normal 98-108 [facility] Comment on above: Performed By: #### L 500.2500 ####[facility] [address] [place], [place], [address] Emergency Department Summary on 12-12-2024 Emergency Department Summary Normal [facility] Foot min 3 Viewson 5 Foot min 3 Views Normal [facility] Glomerular filtration rate ( GFR) estimation/1.73 sq m using serum, plasma, or whole bOrdered By: Darlyn Galeano on 12-12-2024 GFR/1.73 sq M.predicted among non-blacks MDRD (S/P/Bld) [Vol rate/Area] 105 mL/min/{1.73_m2} Normal >60 [facility] Comment on above: Result Comment: mL/m in/1.73m2 CKD-EPI Creatinine Equation (2020) Performed By: #### L 500.2500 ####[facility] [address] [place], [place], [address] [facility] deOrdered By: Derek Paniagua on 12-12-2024 Glucose [Mass/Vol] 346 mg/dL High 74-106 [facility] Potassium measurement (mass/ volume)Ordered By: Darlyn Galeano on 12-12-2024 Potassium (Unsp spec) [Mass/Vol] 3.9 mmol/L 3.3-5.1 [facility] Serum creatinine measurement (mass/volume)Ordered By: Darlynneville Galeano on 12-12-2024 Creatinine [Mass/Vol] 0.66 mg/dL Low 0.70-1.20 [facility] Comment on above: Performed By: #### L 500.2500 ####[facility] [address] [place], [address] Serum glucose measurement (m ass/volume)Ordered By: Darlyn Galeano on 12-12-2024 Glucose [Mass/Vol] 327 mg/dL High 70-99 [facility] Comment on above: Performed By: #### L 500.2500 ####[facility] [address] [place], [address] Serum or plasma calcium xiomara urement (mass/volume)Ordered By: Darlyn Galeano on 12-12-2024 Calcium [Mass/Vol] 9.2 mg/dL Normal 7.6-11.0 [facility] Comment on above: Performed By: #### L 500.2500 ####[facility] [address] [place], [address] Serum or plasma urea nitroge n measurement (mass/volume)Ordered By: Darlyn Galeano on 12-12-2024 Urea nitrogen [Mass/Vol] 6 mg/dL Normal 4-19 [facility] Comment on above: Performed By: #### L 500.2500 ####[facility] [address] [place], [address] Sodium levelOrdered By: Darlyn Galeano on 12-12-2024 Sodium [Moles/Vol] 132 mmol/L Low 133-145 [facility] Comment on above: Performed By: #### L 500.2500 ####[facility] [address] [place], [address] 12 Lead EKGon 09-29-2024 12 Lead EKG Normal [facility] ALP [Catalytic activity/Vol] Ordered By: Nina Richardson on 09-29-2024 Serum or plasma alkaline phosphatase measurement 179 U/L High 35-104 [facility] ALT [Catalytic activity/Vol] Ordered By: Nina Richardson on 09-29-2024 Serum or plasma alanine aminotransferase (ALT) measurement 12 U/L <35 [facility] Absolute lymphocyte countOrd ered By: Nina Richardson on 09-29-2024 Lymphocytes Auto (Unsp spec) [#/Vol] 0.91 10*3/uL 0.83-4.51 [facility] Absolute neutrophil countOrd ered By: Nina Richardson on 09-29-2024 Absolute neutrophil count 14.1 X10^3/uL High 2.0-7.7 [facility] Albumin [Mass/Vol]Ordered By : Nina Richardson on 09-29-2024 Serum or plasma albumin measurement (mass/volume) 3.7 g/dL 3.5-5.0 [facility] Albumin/Globulin [Mass ratio ]Ordered By: Nina Richardson on 09-29-2024 Serum or plasma albumin/globulin mass ratio 1.0 RATIO 0.9-2.4 [facility] Anion gap [Moles/Vol]Ordered By: Nina Richardson on 09-29-2024 Anion gap in Serum or Plasma 15 5-15 [facility] Anion gap in Serum or Plasma Ordered By: Nina Richardson on 09-29-2024 Anion gap [Moles/Vol] 15 mmol/L 5-15 [facility] Automated lymphocyte count a s percentage of total leukocytesOrdered By: Nina Richardson on 09-29-2024 Lymphocytes/100 WBC Auto (Unsp spec) 5.8 % Low 19-41 [facility] BUN/creatinine ratioOrdered By: Nina Richardson on 09-29-2024 Urea nitrogen/Creatinine [Mass ratio] 20.5 mg/mg High 10-20 [facility] BUN/creatinine ratio 20.5 RATIO High 10-20 [facility] Basophil percentageOrdered B y: Nina Richardson on 09-29-2024 Basophils/100 WBC (Bld) 0.4 % 0-1 [facility] Basophil percentage 0.4 % 0-1 [facility] Bedside Glucoseon 09-29-2024 FINGERSTICK GLU 382 mg/dL High 74-106 [facility] Comment on above: Result Comment: TALIA GEMENT OF PATIENT CARE PER NURSING PROTOCOL Performed By: #### L 501.080 ####[facility] [address] [place], [address] FINGERSTICK GLU 412 mg/dL High 74-106 [facility] Comment on above: Result Comment: TALIA GEMENT OF PATIENT CARE PER NURSING PROTOCOL Performed By: #### L 501.080 ####[facility] [address] [place], [address] FINGERSTICK GLU 412 mg/dL High 74-106 [facility] Comment on above: Result Comment: TALIA GEMENT OF PATIENT CARE PER NURSING PROTOCOL Performed By: #### L 501.080 ####[facility] [address] [place], [address] Beta hydroxybutyrate [Mass/V ol]Ordered By: Nina Richardson on 09-29-2024 Beta-hydroxybutyrate 1.3 mmol/L 0.0-0.3 [facility] Beta-Hydroxbytyrateon 2024 BETA-HYDROXYBUT 1.3 mmol/L Normal 0.0-0.3 [facility] Comment on above: Performed By: #### L 501.6901 ####[facility] [address] [place], [address] Beta-hydroxybutyrateOrdered By: Nina Richardson on 09-29-2024 Beta hydroxybutyrate [Mass/Vol] 1.3 mmol/L 0.0-0.3 [facility] Bilirubin Test strip Ql (U)O rdered By: Nina Richardson on 09-29-2024 Bilirubin Ql (U) Negative Negative [facility] Bilirubin, totalOrdered By: Nina Richardson on 09-29-2024 Bilirubin [Mass/Vol] 0.90 mg/dL 0.00-1.30 [facility] Bilirubin, total 0.90 mg/dL 0.00-1.30 [facility] CBC W/Diff, Automatedon 04-2 Absolute Lymph 0.91 X10 3/uL Normal 0.83-4.51 [facility] Comment on above: Performed By: #### L 500.4050, L501.2450, L100.0100 ####[facility] [address] [place], [address] Absolute Neut 14.1 X10 3/uL High 2.0-7.7 [facility] Comment on above: Performed By: #### L 500.4050, L501.2450, L100.0100 ####[facility] [address] [place], [address] Basophils/100 WBC (Bld) 0.4 % Normal 0-1 [facility] Comment on above: Performed By: #### L 500.4050, L501.2450, L100.0100 ####[facility] [address] [place], [address] Eosinophils/100 WBC (Bld) 0.1 % Normal 0-5 [facility] Comment on above: Performed By: #### L 500.4050, L501.2450, L100.0100 ####[facility] [address] [place], [address] Erythrocyte distribution width (RBC) [Ratio] 13.2 % Normal 11.6-14.6 [facility] Comment on above: Performed By: #### L 500.4050, L501.2450, L100.0100 ####[facility] [address] [place], [address] Hematocrit (Bld) [Volume fraction] 38.0 % Normal 37-47 [facility] Comment on above: Performed By: #### L 500.4050, L501.2450, L100.0100 ####[facility] [address] [place], [address] Hemoglobin (Bld) [Mass/Vol] 12.9 g/dL Normal 12.0-15.0 [facility] Comment on above: Performed By: #### L 500.4050, L501.2450, L100.0100 ####[facility] [address] [place], [address] IG% 0.600 Normal 0.0-0.9 [facility] Comment on above: Result Comment: IG% - Immature Granulocytes (promyelocytes, myelocytes andmetamyelocytes) > 1% indicates that a LEFT SHIFT is Present. Performed By: #### L 500.4050, L501.2450, L100.0100 ####[facility] [address] [place], [address] Lymphocytes/100 WBC (Bld) 5.8 % Low 19-41 [facility] Comment on above: Performed By: #### L 500.4050, L501.2450, L100.0100 ####[facility] [address] [place], [address] MCH (RBC) [Entitic mass] 27.9 pg Normal 27.0-32.0 [facility] Comment on above: Performed By: #### L 500.4050, L501.2450, L100.0100 ####[facility] [address] [place], [address] MCHC (RBC) [Mass/Vol] 33.9 g/dL Normal 32-36 [facility] Comment on above: Performed By: #### L 500.4050, L501.2450, L100.0100 ####[facility] [address] [place], [address] MCV (RBC) [Entitic vol] 82.3 fL Normal 81-99 [facility] Comment on above: Performed By: #### L 500.4050, L501.2450, L100.0100 ####[facility] [address] [place], [address] Monocytes/100 WBC (Bld) 3.3 % Normal 0-10 [facility] Comment on above: Performed By: #### L 500.4050, L501.2450, L100.0100 ####[facility] [address] [place], [address] Neutrophils/100 WBC (Bld) 89.8 % High 47-70 [facility] Comment on above: Performed By: #### L 500.4050, L501.2450, L100.0100 ####[facility] [address] [place], [address] Nucleated RBC (Bld) [#/Vol] 0 10*3/uL Normal 0-5 [facility] Comment on above: Performed By: #### L 500.4050, L501.2450, L100.0100 ####[facility] [address] [place], [address] Platelet mean volume (Bld) [Entitic vol] 9.6 fL Normal 6.2-12.0 [facility] Comment on above: Performed By: #### L 500.4050, L501.2450, L100.0100 ####[facility] [address] [place], [address] Platelets (Bld) [#/Vol] 313 10*3/uL Normal 150-450 [facility] Comment on above: Performed By: #### L 500.4050, L501.2450, L100.0100 ####[facility] [address] [place], [address] RBC (Bld) [#/Vol] 4.62 10*6/uL Normal 4.2-5.4 [facility] Comment on above: Performed By: #### L 500.4050, L501.2450, L100.0100 ####[facility] [address] [place], [address] RDW SD 39.4 fl Normal 35.1-43.9 [facility] Comment on above: Performed By: #### L 500.4050, L501.2450, L100.0100 ####[facility] [address] [place], [address] WBC (Bld) [#/Vol] 15.7 10*3/uL High 4.4-11.0 [facility] Comment on above: Performed By: #### L 500.4050, L501.2450, L100.0100 ####[facility] [address] [place], [address] Calcium [Mass/Vol]Ordered By : Nina Richardson on 09-29-2024 Serum or plasma calcium measurement (mass/volume) 9.5 mg/dL 7.6-11.0 [facility] Carbon dioxide, total [Moles /volume] in Central venous bloodOrdered By: Nina Richardson on 09-29-2024 CO2 [Moles/Vol] 23.7 mmol/L 21.0-32.0 [facility] Carbon dioxide, total [Moles/volume] in Central venous blood 23.7 mmol/L 21.0-32.0 [facility] Chloride assayOrdered By: Es Richardson on 09-29-2024 Chloride [Moles/Vol] 97 mmol/L Low 98-108 [facility] Chloride assay 97 mmol/L Low 98-108 [facility] Clarity (U)Ordered By: Tara Richardson on 09-29-2024 Urine clarity Clear Clear [facility] Color (U)Ordered By: Billy Livingston on 09-29-2024 Urine color determination Yellow Yellow [facility] Comprehensive Metabolic Prof ilon 09-29-2024 Albumin [Mass/Vol] 3.7 g/dL Normal 3.5-5.0 [facility] Comment on above: Performed By: #### L 500.4050, L501.2450, L100.0100 ####[facility] [address] [place], [address] Albumin/Globulin [Mass ratio] 1.0 {ratio} Normal 0.9-2.4 [facility] Comment on above: Performed By: #### L 500.4050, L501.2450, L100.0100 ####[facility] [address] [place], [address] ALK PHOS 179 U/L High 35-104 [facility] Comment on above: Performed By: #### L 500.4050, L501.2450, L100.0100 ####[facility] [address] [place], [address] ALT [Catalytic activity/Vol] 12 U/L Normal <=34 [facility] Comment on above: Performed By: #### L 500.4050, L501.2450, L100.0100 ####[facility] [address] [place], [address] AST [Catalytic activity/Vol] 19 U/L Normal <=31 [facility] Comment on above: Performed By: #### L 500.4050, L501.2450, L100.0100 ####[facility] [address] [place], [address] Bilirubin [Mass/Vol] 0.90 mg/dL Normal 0.00-1.30 [facility] Comment on above: Performed By: #### L 500.4050, L501.2450, L100.0100 ####[facility] [address] [place], [address] BUN/CRE 20.5 RATIO High 10-20 [facility] Comment on above: Performed By: #### L 500.4050, L501.2450, L100.0100 ####[facility] [address] [place], [address] Calcium [Mass/Vol] 9.5 mg/dL Normal 7.6-11.0 [facility] Comment on above: Performed By: #### L 500.4050, L501.2450, L100.0100 ####[facility] [address] [place], [address] Chloride [Moles/Vol] 97 mmol/L Low 98-108 [facility] Comment on above: Performed By: #### L 500.4050, L501.2450, L100.0100 ####[facility] [address] [place], [address] CO2 [Moles/Vol] 23.7 mmol/L Normal 21.0-32.0 [facility] Comment on above: Performed By: #### L 500.4050, L501.2450, L100.0100 ####[facility] [address] [place], [address] Creatinine [Mass/Vol] 0.68 mg/dL Low 0.70-1.20 [facility] Comment on above: Performed By: #### L 500.4050, L501.2450, L100.0100 ####[facility] [address] [place], [address] ECRCL 105.00 ml/min Normal 50-250 [facility] Comment on above: Performed By: #### L 500.4050, L501.2450, L100.0100 ####[facility] [address] [place], [address] GAP 15 Normal 5-15 [facility] Comment on above: Performed By: #### L 500.4050, L501.2450, L100.0100 ####[facility] [address] [place], [address] GFR/1.73 sq M.predicted among non-blacks MDRD (S/P/Bld) [Vol rate/Area] 104 mL/min/{1.73_m2} Normal >60 [facility] Comment on above: Result Comment: mL/m in/1.73m2 CKD-EPI Creatinine Equation (2020) Performed By: #### L 500.4050, L501.2450, L100.0100 ####[facility] [address] [place], [address] Globulin (S) [Mass/Vol] 3.8 g/dL Normal 2.2-4.2 [facility] Comment on above: Performed By: #### L 500.4050, L501.2450, L100.0100 ####[facility] [address] [place], [address] Glucose [Mass/Vol] 442 mg/dL High 70-99 [facility] Comment on above: Performed By: #### L 500.4050, L501.2450, L100.0100 ####[facility] [address] [place], [address] Potassium [Moles/Vol] 3.5 mmol/L Normal 3.3-5.1 [facility] Comment on above: Performed By: #### L 500.4050, L501.2450, L100.0100 ####[facility] [address] [place], [address] Sodium [Moles/Vol] 135 mmol/L Normal 133-145 [facility] Comment on above: Performed By: #### L 500.4050, L501.2450, L100.0100 ####[facility] [address] [place], [address] T PROT 7.5 g/dL Normal 5.9-8.4 [facility] Comment on above: Performed By: #### L 500.4050, L501.2450, L100.0100 ####[facility] [address] [place], [address] Urea nitrogen [Mass/Vol] 14 mg/dL Normal 4-19 [facility] Comment on above: Performed By: #### L 500.4050, L501.2450, L100.0100 ####[facility] [address], [address] Creatinine [Mass/Vol]Ordered By: Nina Richardson on 09-29-2024 Serum creatinine measurement (mass/volume) 0.68 mg/dL Low 0.70-1.20 [facility] Emergency Department Summary on 09-29-2024 Emergency Department Summary Normal [facility] Eosinophil percentageOrdered By: Nina Richardson on 09-29-2024 Eosinophils/100 WBC (Bld) 0.1 % 0-5 [facility] Eosinophil percentage 0.1 % 0-5 [facility] Erythrocyte distribution wid th (RBC) [Ratio]Ordered By: Nina Richardson on 09-29-2024 Erythrocyte distribution width ratio 13.2 % 11.6-14.6 [facility] Erythrocyte distribution width standard deviation 39.4 fl 35.1-43.9 [facility] Erythrocyte distribution wid th ratioOrdered By: Nina Richardson on 09-29-2024 Erythrocyte distribution width (RBC) [Ratio] 13.2 % 11.6-14.6 [facility] Erythrocyte distribution wid th standard deviationOrdered By: Nina Richardson on 09-29-2024 Erythrocyte distribution width (RBC) [Ratio] 39.4 fl 35.1-43.9 [facility] Estimation of creatinine sylvain aranceOrdered By: Nina Richardson on 09-29-2024 Estimation of creatinine clearance 105.00 ml/min 50-250 [facility] GFR/1.73 sq M.predicted estephanie g non-blacks MDRD (S/P/Bld) [Vol rate/Area]Ordered By: Nina Richardson on 09-29-2024 Glomerular filtration rate (GFR) estimation/1.73 sq m using serum, plasma, or whole b 104 >60 [facility] Glomerular filtration rate ( GFR) estimation/1.73 sq m using serum, plasma, or whole bOrdered By: Nina Richardson on 09-29-2024 GFR/1.73 sq M.predicted among non-blacks MDRD (S/P/Bld) [Vol rate/Area] 104 mL/min/{1.73_m2} >60 [facility] Glucose Ql (U)Ordered By: Es Richardson on 09-29-2024 Urine glucose detection 1000 mg/dl High Normal [facility] Glucose [Mass/Vol]Ordered By : Nina Richardson on 09-29-2024 Serum glucose measurement (mass/volume) 442 mg/dL High 70-99 [facility] Glucose measurement at bedsi deOrdered By: Zack Card on 09-29-2024 Glucose [Mass/Vol] 382 mg/dL High 74-106 [facility] Glucose measurement at bedside 382 mg/dL High 74-106 [facility] Hematocrit Auto (Bld) [Volum e fraction]Ordered By: Nina Richardson on 09-29-2024 Hematocrit (Bld) [Volume fraction] 38.0 % 37-47 [facility] Automated blood hematocrit (percentage) 38.0 % 37-47 [facility] Hemoglobin measurementOrdere d By: Nina Richardson on 09-29-2024 Hemoglobin (Bld) [Mass/Vol] 12.9 g/dL 12.0-15.0 [facility] Hemoglobin measurement 12.9 g/dL 12.0-15.0 [facility] Immature granulocytes/100 WB C Auto (Bld)Ordered By: Nina Richardson on 09-29-2024 Immature granulocytes/100 WBC (Bld) 0.600 % 0.0-0.9 [facility] Automated immature granulocyte percentage 0.600 % 0.0-0.9 [facility] Ketones Test strip Ql (U)Ord ered By: Nina Richardson on 09-29-2024 Ketones Ql (U) 15 mg/dl High Negative [facility] Urine ketones detection by test strip 15 mg/dl High Negative [facility] Lipaseon 09-29-2024 Lipase [Catalytic activity/Vol] 30 U/L Normal 13-75 [facility] Comment on above: Result Comment: Gege edgar note:LIPASE revised reference range effective 22.New Lipase methodology. Expected to produce lower valuesthan the previous assay method.NEW Reference Range: 13 - 75 U/L Performed By: #### L 500.4050, L501.2450, L100.0100 ####[facility] [address] [place], [address] Lipase measurementOrdered By : Nina Richardson on 09-29-2024 Lipase measurement 30 U/L 13-75 [facility] Lymphocytes Auto (Unsp spec) [#/Vol]Ordered By: Nina Richardson on 09-29-2024 Absolute lymphocyte count 0.91 X10^3/uL 0.83-4.51 [facility] Lymphocytes/100 WBC Auto (Un sp spec)Ordered By: Nina Richardson on 09-29-2024 Automated lymphocyte count as percentage of total leukocytes 5.8 % Low 19-41 [facility] MCV (RBC) [Entitic vol]Order ed By: Nina Richardson on 09-29-2024 MCV (mean corpuscular volume) determination 82.3 fL 81-99 [facility] MCV (mean corpuscular volume ) determinationOrdered By: Nina Richardson on 09-29-2024 MCV (RBC) [Entitic vol] 82.3 fL 81-99 [facility] Mean corpuscular hemoglobin (MCH) determinationOrdered By: Nina Richardson on 09-29-2024 MCH (RBC) [Entitic mass] 27.9 pg 27.0-32.0 [facility] Mean corpuscular hemoglobin (MCH) determination 27.9 pg 27.0-32.0 [facility] Mean corpuscular hemoglobin concentration (MCHC) determinationOrdered By: Nina Richardson on 09-29-2024 Mean corpuscular hemoglobin concentration (MCHC) determination 33.9 g/dL 32-36 [facility] Mean platelet volume determi nationOrdered By: Nina Richardson on 09-29-2024 Mean platelet volume determination 9.6 fl 6.2-12.0 [facility] Monocyte percentageOrdered B y: Nina Richardson on 09-29-2024 Monocytes/100 WBC (Bld) 3.3 % 0-10 [facility] Monocyte percentage 3.3 % 0-10 [facility] Mucus LM Ql (Urine sed)Order ed By: Nina Richardson on 09-29-2024 Mucus Ql (Urine sed) 0 SEEN /hpf [facility] Neutrophil percentageOrdered By: Nina Richardson on 09-29-2024 Neutrophils/100 WBC (Bld) 89.8 % High 47-70 [facility] Neutrophil percentage 89.8 % High 47-70 [facility] Nitrite Test strip Ql (U)Ord ered By: Nina Richardson on 09-29-2024 Nitrite Ql (U) Negative Negative [facility] No Panel InformationOrdered By: Nina Richardson on 09-29-2024 19 U/L <32 [facility] Nucleated red blood cell per centageOrdered By: Nina Richardson on 09-29-2024 Nucleated red blood cell percentage 0 % 0-5 [facility] Platelet countOrdered By: Es Richardson on 09-29-2024 Platelets (Bld) [#/Vol] 313 10*3/uL 150-450 [facility] Platelet count 313 K/mm3 150-450 [facility] Potassium (Unsp spec) [Mass/ Vol]Ordered By: Nina Richardson on 09-29-2024 Potassium measurement (mass/volume) 3.5 mmol/L 3.3-5.1 [facility] Potassium measurement (mass/ volume)Ordered By: Nina Richardson on 09-29-2024 Potassium (Unsp spec) [Mass/Vol] 3.5 mmol/L 3.3-5.1 [facility] Protein Test strip Ql (U)Ord ered By: Nina Richardson on 09-29-2024 Protein Ql (U) 100 mg/dl High Negative [facility] Urine protein assay by test strip, semi-quantitative 100 mg/dl High Negative [facility] RBC Auto (Bld) [#/Vol]Ordere d By: Nina Richardson on 09-29-2024 RBC (Bld) [#/Vol] 4.62 10*6/uL 4.2-5.4 [facility] Automated blood erythrocyte count 4.62 M/mm3 4.2-5.4 [facility] Serum creatinine measurement (mass/volume)Ordered By: Nina Richardson on 09-29-2024 Creatinine [Mass/Vol] 0.68 mg/dL Low 0.70-1.20 [facility] Serum globulin measurementOr dered By: Nina Richardson on 09-29-2024 Globulin (S) [Mass/Vol] 3.8 g/dL 2.2-4.2 [facility] Serum globulin measurement 3.8 g/dL 2.2-4.2 [facility] Serum glucose measurement (m ass/volume)Ordered By: Nina Richardson on 09-29-2024 Glucose [Mass/Vol] 442 mg/dL High 70-99 [facility] Serum or plasma alanine hamilton otransferase (ALT) measurementOrdered By: Nina Richardson on 09-29-2024 ALT [Catalytic activity/Vol] 12 U/L <35 [facility] Serum or plasma albumin xiomara urement (mass/volume)Ordered By: Nina Richardson on 09-29-2024 Albumin [Mass/Vol] 3.7 g/dL 3.5-5.0 [facility] Serum or plasma albumin/glob ulin mass ratioOrdered By: Nina Richardson on 09-29-2024 Albumin/Globulin [Mass ratio] 1.0 {ratio} 0.9-2.4 [facility] Serum or plasma alkaline sabiha sphatase measurementOrdered By: Nina Richardson on 09-29-2024 ALP [Catalytic activity/Vol] 179 U/L High 35-104 [facility] Serum or plasma calcium xiomara urement (mass/volume)Ordered By: Nina Richardson on 09-29-2024 Calcium [Mass/Vol] 9.5 mg/dL 7.6-11.0 [facility] Serum or plasma urea nitroge n measurement (mass/volume)Ordered By: Nina Richardson on 09-29-2024 Urea nitrogen [Mass/Vol] 14 mg/dL 4-19 [facility] Sodium levelOrdered By: Carissa Richardson on 09-29-2024 Sodium [Moles/Vol] 135 mmol/L 133-145 [facility] Sodium level 135 mmol/L 133-145 [facility] Specific gravity (U) [Rel de nsity]Ordered By: Nina Richardson on 09-29-2024 Urine specific gravity measurement 1.010 1.002-1.03 0 [facility] Squamous epithelial cells de tection in urine sediment by light microscopyOrdered By: Nina Richardson on 09-29-2024 Epithelial cells.squamous LM Ql (Urine sed) 0-5 SEEN /hpf - [facility] Total proteinOrdered By: Yamil Richardson on 09-29-2024 Protein [Mass/Vol] 7.5 g/dL 5.9-8.4 [facility] Total protein 7.5 g/dL 5.9-8.4 [facility] Urea nitrogen [Mass/Vol]Orde red By: Nina Richardson on 09-29-2024 Serum or plasma urea nitrogen measurement (mass/volume) 14 mg/dL 09-20 [facility] Urinalysis, Completeon 09-29 EPI,SQUAMOUS 0-5 SEEN Normal -10 [facility] Comment on above: Order Comment: CLEAN CATCH Performed By: #### L 400.0001 ####[facility] [address] [place], [place], [phone] RBC 0-5 SEEN Normal 0-5 [facility] Comment on above: Order Comment: CLEAN CATCH Performed By: #### L 400.0001 ####[facility] [address] [facility] [address] WBC 0-5 SEEN Normal 0-5 [facility] Comment on above: Order Comment: CLEAN CATCH Performed By: #### L 400.0001 ####[facility] [address] [place], [address] BACTERIA 0 SEEN Normal None Seen [facility] Comment on above: Order Comment: CLEAN CATCH Performed By: #### L 400.0001 ####[facility] [address] [place], [address] Mucus Ql (Urine sed) 0 SEEN Normal [facility] Comment on above: Order Comment: CLEAN CATCH Performed By: #### L 400.0001 ####[facility] [address] [place], [address] Urine blood detectionOrdered By: Nina Richardson on 09-29-2024 Urine blood detection 25 /ul High Negative [facility] Urine clarityOrdered By: Yamil Richardson on 09-29-2024 Clarity (U) Clear Clear [facility] Urine color determinationOrd ered By: Nina Richardson on 09-29-2024 Color (U) Yellow Yellow [facility] Urine glucose detectionOrder ed By: Nina Richardson on 09-29-2024 Glucose Ql (U) 1000 mg/dl High Normal [facility] Urine leukocyte esterase det ection by dipstickOrdered By: Nina Richardson on 09-29-2024 Leukocyte esterase Test strip Ql (U) Negative Negative [facility] Urine pHOrdered By: Martin Richardson on 09-29-2024 pH (U) 7.0 [pH] 5.0 - 8.0 [facility] Urine sediment bacteria coun t by microscopy (number/high power field)Ordered By: Nina Richardson on 09-29-2024 Bacteria LM.HPF (Urine sed) [#/Area] 0 /[HPF] None Seen [facility] Urine sediment bacteria count by microscopy (number/high power field) 0 SEEN /hpf [facility] Urine specific gravity measu rementOrdered By: Nina Richardson on 09-29-2024 Specific gravity (U) [Rel density] 1.010 1.002-1.03 0 [facility] Urine total bilirubin detect ion by test stripOrdered By: Nina Richardson on 09-29-2024 Urine total bilirubin detection by test strip Negative Negative [facility] Urine urobilinogen measureme ntOrdered By: Nina Richardson on 09-29-2024 Urobilinogen Ql (U) Normal mg/dl Normal [facility] Urobilinogen Ql (U)Ordered B y: Nnia Richardson on 09-29-2024 Urine urobilinogen measurement Normal mg/dl Normal [facility] White blood cell (WBC) count Ordered By: Nina Richardson on 09-29-2024 WBC (Bld) [#/Vol] 15.7 10*3/uL High 4.4-11.0 [facility] White blood cell (WBC) count 15.7 K/mm3 High 4.4-11.0 [facility] White blood cell countOrdere d By: Nina Richardson on 09-29-2024 White blood cell count 0-5 SEEN /hpf 0-5 [facility] White blood cell count 0-5 SEEN /hpf 5-10 [facility] pH (U)Ordered By: Nina Richardson on 09-29-2024 Urine pH 7.0 5.0 - 8.0 [facility] ALP [Catalytic activity/Vol] Ordered By: Riccardo Hillman on 09-21-2024 Serum or plasma alkaline phosphatase measurement 128 U/L High 35-104 [facility] ALT [Catalytic activity/Vol] Ordered By: Riccardo Hillman on 09-21-2024 Serum or plasma alanine aminotransferase (ALT) measurement 13 U/L <35 [facility] Absolute lymphocyte countOrd ered By: Nina Richardson on 09-21-2024 Lymphocytes Auto (Unsp spec) [#/Vol] 1.03 10*3/uL 0.83-4.51 [facility] Absolute neutrophil countOrd ered By: Nina Richardson on 09-21-2024 Absolute neutrophil count 8.9 X10^3/uL High 2.0-7.7 [facility] Albumin [Mass/Vol]Ordered By : Riccardo Hillman on 09-21-2024 Serum or plasma albumin measurement (mass/volume) 3.6 g/dL 3.5-5.0 [facility] Albumin/Globulin [Mass ratio ]Ordered By: Riccardo Hillman on 09-21-2024 Serum or plasma albumin/globulin mass ratio 1.1 RATIO 0.9-2.4 [facility] Anion gap [Moles/Vol]Ordered By: Riccardo Hillman on 09-21-2024 Anion gap in Serum or Plasma 11 5-15 [facility] Anion gap in Serum or Plasma Ordered By: Riccardo Hillman on 09-21-2024 Anion gap [Moles/Vol] 11 mmol/L 5-15 [facility] Automated lymphocyte count a s percentage of total leukocytesOrdered By: Nina Richardson on 09-21-2024 Lymphocytes/100 WBC Auto (Unsp spec) 9.8 % Low [facility] BUN/creatinine ratioOrdered By: Riccardo Hillman on 09-21-2024 Urea nitrogen/Creatinine [Mass ratio] 13.7 mg/mg 03-23 [facility] BUN/creatinine ratio 13.7 RATIO 03-23 [facility] Basophil percentageOrdered B y: Nina Richardson on 09-21-2024 Basophils/100 WBC (Bld) 0.4 % 0-1 [facility] Basophil percentage 0.4 % 0-1 [facility] Bilirubin Test strip Ql (U)O rdered By: Nina Richardson on 09-21-2024 Bilirubin Ql (U) Negative Negative [facility] Bilirubin, totalOrdered By: Riccardo Hillman on 09-21-2024 Bilirubin [Mass/Vol] 1.08 mg/dL 0.00-1.30 [facility] Bilirubin, total 1.08 mg/dL 0.00-1.30 [facility] CBC W/Diff, Automatedon 09-03 Absolute Lymph 1.03 X10 3/uL Normal 0.83-4.51 [facility] Comment on above: Performed By: #### L 100.0100, L500.4050 ####[facility] [address] [place], [address] Absolute Neut 8.9 X10 3/uL High 2.0-7.7 [facility] Comment on above: Performed By: #### L 100.0100, L500.4050 ####[facility] [address] [place], [address] Basophils/100 WBC (Bld) 0.4 % Normal 0-1 [facility] Comment on above: Performed By: #### L 100.0100, L500.4050 ####[facility] [address] [place], [address] Eosinophils/100 WBC (Bld) 0.6 % Normal 0-5 [facility] Comment on above: Performed By: #### L 100.0100, L500.4050 ####[facility] [address] [place], [address] Erythrocyte distribution width (RBC) [Ratio] 13.0 % Normal 11.6-14.6 [facility] Comment on above: Performed By: #### L 100.0100, L500.4050 ####[facility] [address] [place], [address] Hematocrit (Bld) [Volume fraction] 37.7 % Normal 37-47 [facility] Comment on above: Performed By: #### L 100.0100, L500.4050 ####[facility] [address] [place], [address] Hemoglobin (Bld) [Mass/Vol] 13.0 g/dL Normal 12.0-15.0 [facility] Comment on above: Performed By: #### L 100.0100, L500.4050 ####[facility] [address] [place], [address] IG% 0.300 Normal 0.0-0.9 [facility] Comment on above: Result Comment: IG% - Immature Granulocytes (promyelocytes, myelocytes andmetamyelocytes) > 1% indicates that a LEFT SHIFT is Present. Performed By: #### L 100.0100, L500.4050 ####[facility] [address] [place], [address] Lymphocytes/100 WBC (Bld) 9.8 % Low 19-41 [facility] Comment on above: Performed By: #### L 100.0100, L500.4050 ####[facility] [address] [place], [address] MCH (RBC) [Entitic mass] 29.0 pg Normal 27.0-32.0 [facility] Comment on above: Performed By: #### L 100.0100, L500.4050 ####[facility] [address] [place], [address] MCHC (RBC) [Mass/Vol] 34.5 g/dL Normal 32-36 [facility] Comment on above: Performed By: #### L 100.0100, L500.4050 ####[facility] [address] [place], [address] MCV (RBC) [Entitic vol] 84.0 fL Normal 81-99 [facility] Comment on above: Performed By: #### L 100.0100, L500.4050 ####[facility] [address] [place], [address] Monocytes/100 WBC (Bld) 4.3 % Normal 0-10 [facility] Comment on above: Performed By: #### L 100.0100, L500.4050 ####[facility] [address] [place], [address] Neutrophils/100 WBC (Bld) 84.6 % High 47-70 [facility] Comment on above: Performed By: #### L 100.0100, L500.4050 ####[facility] [address] [place], [address] Nucleated RBC (Bld) [#/Vol] 0 10*3/uL Normal 0-5 [facility] Comment on above: Performed By: #### L 100.0100, L500.4050 ####[facility] [address] [place], [address] Platelet mean volume (Bld) [Entitic vol] 9.3 fL Normal 6.2-12.0 [facility] Comment on above: Performed By: #### L 100.0100, L500.4050 ####[facility] [address] [place], [address] Platelets (Bld) [#/Vol] 275 10*3/uL Normal 150-450 [facility] Comment on above: Performed By: #### L 100.0100, L500.4050 ####[facility] [address] [place], [address] RBC (Bld) [#/Vol] 4.49 10*6/uL Normal 4.2-5.4 [facility] Comment on above: Performed By: #### L 100.0100, L500.4050 ####[facility] [address] [place], [address] RDW SD 39.7 fl Normal 35.1-43.9 [facility] Comment on above: Performed By: #### L 100.0100, L500.4050 ####[facility] [address] [place], [address] WBC (Bld) [#/Vol] 10.5 10*3/uL Normal 4.4-11.0 [facility] Comment on above: Performed By: #### L 100.0100, L500.4050 ####[facility] [address] [place], [address] Calcium [Mass/Vol]Ordered By : Riccardo Hillman on 09-21-2024 Serum or plasma calcium measurement (mass/volume) 9.3 mg/dL 7.6-11.0 [facility] Carbon dioxide, total [Moles /volume] in Central venous bloodOrdered By: Riccardo Hillman on 09-21-2024 CO2 [Moles/Vol] 25.8 mmol/L 21.0-32.0 [facility] Carbon dioxide, total [Moles/volume] in Central venous blood 25.8 mmol/L 21.0-32.0 [facility] Chloride assayOrdered By: Bertram Hillman on 09-21-2024 Chloride [Moles/Vol] 95 mmol/L Low 98-108 [facility] Chloride assay 95 mmol/L Low 98-108 [facility] Clarity (U)Ordered By: Tara Richardson on 09-21-2024 Urine clarity Clear Clear [facility] Color (U)Ordered By: Billy Livingston on 09-21-2024 Urine color determination Yellow Yellow [facility] Comprehensive Metabolic Prof ilon 09-21-2024 Albumin [Mass/Vol] 3.6 g/dL Normal 3.5-5.0 [facility] Comment on above: Order Comment: REDRA W. PREVIOUS SPECIMEN REJECTED DUE TOSPECIMEN BEING HEMOLYZED. 09/21/241314 Jevon Squires Performed By: #### L 500.4050, L501.2450 ####[facility] [address] [place], [address] Albumin/Globulin [Mass ratio] 1.1 {ratio} Normal 0.9-2.4 [facility] Comment on above: Order Comment: REDRA W. PREVIOUS SPECIMEN REJECTED DUE TOSPECIMEN BEING HEMOLYZED. 09/21/241314 Jevon Angeles. Performed By: #### L 500.4050, L501.2450 ####[facility] [address] [place], [address] ALK PHOS 128 U/L High 35-104 [facility] Comment on above: Order Comment: REDRA W. PREVIOUS SPECIMEN REJECTED DUE TOSPECIMEN BEING HEMOLYZED. 09/21/241314 Jevon Squires Performed By: #### L 500.4050, L501.2450 ####[facility] [address] [place], [address] ALT [Catalytic activity/Vol] 13 U/L Normal <=34 [facility] Comment on above: Order Comment: REDRA W. PREVIOUS SPECIMEN REJECTED DUE TOSPECIMEN BEING HEMOLYZED. 09/21/241314 Jevon Angeles. Performed By: #### L 500.4050, L501.2450 ####[facility] [address] [place], [address] AST [Catalytic activity/Vol] 19 U/L Normal <=31 [facility] Comment on above: Order Comment: REDRA W. PREVIOUS SPECIMEN REJECTED DUE TOSPECIMEN BEING HEMOLYZED. 09/21/24 1315 Jevon Angeles. Performed By: #### L 500.4050, L501.2450 ####[facility] [address] [place], [address] Bilirubin [Mass/Vol] 1.08 mg/dL Normal 0.00-1.30 [facility] Comment on above: Order Comment: REDRA W. PREVIOUS SPECIMEN REJECTED DUE TOSPECIMEN BEING HEMOLYZED. 09/21/245 Jevon Angeles. Performed By: #### L 500.4050, L501.2450 ####[facility] [address] [place], [address] BUN/CRE 13.7 RATIO Normal 10-20 [facility] Comment on above: Order Comment: REDRA W. PREVIOUS SPECIMEN REJECTED DUE TOSPECIMEN BEING HEMOLYZED. 09/21/245 Jevon Angeles. Performed By: #### L 500.4050, L501.2450 ####[facility] [address] [place], [address] Calcium [Mass/Vol] 9.3 mg/dL Normal 7.6-11.0 [facility] Comment on above: Order Comment: REDRA W. PREVIOUS SPECIMEN REJECTED DUE TOSPECIMEN BEING HEMOLYZED. 09/21/245 Jevon Vergarar. Performed By: #### L 500.4050, L501.2450 ####[facility] [address] [place], [address] Chloride [Moles/Vol] 95 mmol/L Low 98-108 [facility] Comment on above: Order Comment: REDRA W. PREVIOUS SPECIMEN REJECTED DUE TOSPECIMEN BEING HEMOLYZED. 09/21/24 1315 Jevon Angeles. Performed By: #### L 500.4050, L501.2450 ####[facility] [address] [place], [address] CO2 [Moles/Vol] 25.8 mmol/L Normal 21.0-32.0 [facility] Comment on above: Order Comment: REDRA W. PREVIOUS SPECIMEN REJECTED DUE TOSPECIMEN BEING HEMOLYZED. 09/21/245 Jevon Angeles. Performed By: #### L 500.4050, L501.2450 ####[facility] [address] [place], [address] Creatinine [Mass/Vol] 0.67 mg/dL Low 0.70-1.20 [facility] Comment on above: Order Comment: REDRA W. PREVIOUS SPECIMEN REJECTED DUE TOSPECIMEN BEING HEMOLYZED. 09/21/241314 Jevon Angeles. Performed By: #### L 500.4050, L501.2450 ####[facility] [address] [place], [address] ECRCL 107.12 ml/min Normal 50-250 [facility] Comment on above: Order Comment: REDRA W. PREVIOUS SPECIMEN REJECTED DUE TOSPECIMEN BEING HEMOLYZED. 09/21/241314 Jevon Squires Performed By: #### L 500.4050, L501.2450 ####[facility] [address] [place], [address] GAP 11 Normal 5-15 [facility] Comment on above: Order Comment: REDRA W. PREVIOUS SPECIMEN REJECTED DUE TOSPECIMEN BEING HEMOLYZED. 09/21/245 Jevon Angeles. Performed By: #### L 500.4050, L501.2450 ####[facility] [address] [place], [address] GFR/1.73 sq M.predicted among non-blacks MDRD (S/P/Bld) [Vol rate/Area] 105 mL/min/{1.73_m2} Normal >60 [facility] Comment on above: Order Comment: REDRA W. PREVIOUS SPECIMEN REJECTED DUE TOSPECIMEN BEING HEMOLYZED. 09/21/241314 Jevon Squires Result Comment: mL/m in/1.73m2 CKD-EPI Creatinine Equation (2020) Performed By: #### L 500.4050, L501.2450 ####[facility] [address] [place], [address] Globulin (S) [Mass/Vol] 3.3 g/dL Normal 2.2-4.2 [facility] Comment on above: Order Comment: REDRA W. PREVIOUS SPECIMEN REJECTED DUE TOSPECIMEN BEING HEMOLYZED. 09/21/241314 Jevon Angeles. Performed By: #### L 500.4050, L501.2450 ####[facility] [address] [place], [address] Glucose [Mass/Vol] 336 mg/dL High 70-99 [facility] Comment on above: Order Comment: REDRA W. PREVIOUS SPECIMEN REJECTED DUE TOSPECIMEN BEING HEMOLYZED. 09/21/241314 Jevon Squires Performed By: #### L 500.4050, L501.2450 ####[facility] [address] [place], [address] Potassium [Moles/Vol] 3.3 mmol/L Normal 3.3-5.1 [facility] Comment on above: Order Comment: REDRA W. PREVIOUS SPECIMEN REJECTED DUE TOSPECIMEN BEING HEMOLYZED. 09/21/241314 Jevon Squires Performed By: #### L 500.4050, L501.2450 ####[facility] [address] [place], [address] Sodium [Moles/Vol] 132 mmol/L Low 133-145 [facility] Comment on above: Order Comment: REDRA W. PREVIOUS SPECIMEN REJECTED DUE TOSPECIMEN BEING HEMOLYZED. 09/21/245 Jevon Vergarar. Performed By: #### L 500.4050, L501.2450 ####[facility] [address] [place], [address] T PROT 6.9 g/dL Normal 5.9-8.4 [facility] Comment on above: Order Comment: REDRA W. PREVIOUS SPECIMEN REJECTED DUE TOSPECIMEN BEING HEMOLYZED. 09/21/245 Jevon Vergarar. Performed By: #### L 500.4050, L501.2450 ####[facility] [address] [place], [address] Urea nitrogen [Mass/Vol] 9 mg/dL Normal 4-19 [facility] Comment on above: Order Comment: REDRA W. PREVIOUS SPECIMEN REJECTED DUE TOSPECIMEN BEING HEMOLYZED. 09/21/241314 Jevon Vergarar. Performed By: #### L 500.4050, L501.2450 ####[facility] [address] [place], [address] ALB Normal 3.5-5.0 [facility] Comment on above: Result Comment: This specimen has been REJECTED due to Laboratory criteria:Hemolyzed.ED STAFF has been notified of need of recollection.09/21/241313 Jevon R St[place] Performed By: #### L 100.0100, L500.4050 ####[facility] [address] [place], [address] ALK PHOS Normal 35-104 [facility] Comment on above: Result Comment: This specimen has been REJECTED due to Laboratory criteria:Hemolyzed.ED STAFF has been notified of need of recollection.09/21/241313 Jevon R Stoner Performed By: #### L 100.0100, L500.4050 ####[facility] [address] [place], [address] ALT Normal <=34 [facility] Comment on above: Result Comment: This specimen has been REJECTED due to Laboratory criteria:Hemolyzed.ED STAFF has been notified of need of recollection.09/21/244 Jevon R Stoner Performed By: #### L 100.0100, L500.4050 ####[facility] [address] [place], [address] AST Normal <=31 [facility] Comment on above: Result Comment: This specimen has been REJECTED due to Laboratory criteria:Hemolyzed.ED STAFF has been notified of need of recollection.09/21/244 Jevon R Stoner Performed By: #### L 100.0100, L500.4050 ####[facility] [address] [place], [address] BUN Normal 4-19 [facility] Comment on above: Result Comment: This specimen has been REJECTED due to Laboratory criteria:Hemolyzed.ED STAFF has been notified of need of recollection.09/21/241313 Jevon R Stoner Performed By: #### L 100.0100, L500.4050 ####[facility] [address] [place], [address] BUN/CRE Normal 10-20 [facility] Comment on above: Result Comment: This specimen has been REJECTED due to Laboratory criteria:Hemolyzed.ED STAFF has been notified of need of recollection.09/21/241313 Jevon R Stoner Performed By: #### L 100.0100, L500.4050 ####[facility] [address] [place], [address] Calcium Normal 7.6-11.0 [facility] Comment on above: Result Comment: This specimen has been REJECTED due to Laboratory criteria:Hemolyzed.ED STAFF has been notified of need of recollection.09/21/241313 Jevon R Stoner Performed By: #### L 100.0100, L500.4050 ####[facility] [address] [place], [address] CL Normal 98-108 [facility] Comment on above: Result Comment: This specimen has been REJECTED due to Laboratory criteria:Hemolyzed.ED STAFF has been notified of need of recollection.09/21/244 Jevon R Stoner Performed By: #### L 100.0100, L500.4050 ####[facility] [address] [place], [address] CO2 Normal 21.0-32.0 [facility] Comment on above: Result Comment: This specimen has been REJECTED due to Laboratory criteria:Hemolyzed.ED STAFF has been notified of need of recollection.09/21/244 Jevon R Stoner Performed By: #### L 100.0100, L500.4050 ####[facility] [address] [place], [address] CREAT,SERUM Normal 0.70-1.20 [facility] Comment on above: Result Comment: This specimen has been REJECTED due to Laboratory criteria:Hemolyzed.ED STAFF has been notified of need of recollection.09/21/241313 Jevon R Stoner Performed By: #### L 100.0100, L500.4050 ####[facility] [address] [place], [address] eGFR Normal >60 [facility] Comment on above: Result Comment: This specimen has been REJECTED due to Laboratory criteria:Hemolyzed.ED STAFF has been notified of need of recollection.09/21/241313 Jevon R Stoner Performed By: #### L 100.0100, L500.4050 ####[facility] [address] [place], [address] GAP Normal 5-15 [facility] Comment on above: Result Comment: This specimen has been REJECTED due to Laboratory criteria:Hemolyzed.ED STAFF has been notified of need of recollection.09/21/244 Jevon R Stoner Performed By: #### L 100.0100, L500.4050 ####[facility] [address] [place], [address] GLU Normal 70-99 [facility] Comment on above: Result Comment: This specimen has been REJECTED due to Laboratory criteria:Hemolyzed.ED STAFF has been notified of need of recollection.09/21/244 Jevon R Stoner Performed By: #### L 100.0100, L500.4050 ####[facility] [address] [place], [address] Potassium Normal 3.3-5.1 [facility] Comment on above: Result Comment: This specimen has been REJECTED due to Laboratory criteria:Hemolyzed.ED STAFF has been notified of need of recollection.09/21/244 Jevon R Stoner Performed By: #### L 100.0100, L500.4050 ####[facility] [address] [place], [address] T BILI Normal 0.00-1.30 [facility] Comment on above: Result Comment: This specimen has been REJECTED due to Laboratory criteria:Hemolyzed.ED STAFF has been notified of need of recollection.09/21/244 Jevon R Stoner Performed By: #### L 100.0100, L500.4050 ####[facility] [address] [place], [address] T PROT Normal 5.9-8.4 [facility] Comment on above: Result Comment: This specimen has been REJECTED due to Laboratory criteria:Hemolyzed.ED STAFF has been notified of need of recollection.09/21/244 Jevon R Stoner Performed By: #### L 100.0100, L500.4050 ####[facility] [address] [place], [address] Comprehensive Metabolic Profil Normal 133-145 [facility] Comment on above: Result Comment: This specimen has been REJECTED due to Laboratory criteria:Hemolyzed.ED STAFF has been notified of need of recollection.09/21/24 1314 Jevon Angeles Performed By: #### L 100.0100, L500.4050 ####[facility] [address] [place], [address] Creatinine [Mass/Vol]Ordered By: Riccardo Hillman on 09-21-2024 Serum creatinine measurement (mass/volume) 0.67 mg/dL Low 0.70-1.20 [facility] Emergency Department Summary on 09-21-2024 Emergency Department Summary Normal [facility] Eosinophil percentageOrdered By: Nina Richardson on 09-21-2024 Eosinophils/100 WBC (Bld) 0.6 % 0-5 [facility] Eosinophil percentage 0.6 % 0-5 [facility] Erythrocyte distribution wid th (RBC) [Ratio]Ordered By: Nina Richardson on 09-21-2024 Erythrocyte distribution width ratio 13.0 % 11.6-14.6 [facility] Erythrocyte distribution width standard deviation 39.7 fl 35.1-43.9 [facility] Erythrocyte distribution wid th ratioOrdered By: Nina Richardson on 09-21-2024 Erythrocyte distribution width (RBC) [Ratio] 13.0 % 11.6-14.6 [facility] Erythrocyte distribution wid th standard deviationOrdered By: Nina Richardson on 09-21-2024 Erythrocyte distribution width (RBC) [Ratio] 39.7 fl 35.1-43.9 [facility] Estimation of creatinine sylvain aranceOrdered By: Riccardo Hillman on 09-21-2024 Estimation of creatinine clearance 107.12 ml/min 50-250 [facility] GFR/1.73 sq M.predicted estephanie g non-blacks MDRD (S/P/Bld) [Vol rate/Area]Ordered By: Riccardo Hillman on 09-21-2024 Glomerular filtration rate (GFR) estimation/1.73 sq m using serum, plasma, or whole b 105 >60 [facility] Glomerular filtration rate ( GFR) estimation/1.73 sq m using serum, plasma, or whole bOrdered By: Riccardo Hillman on 09-21-2024 GFR/1.73 sq M.predicted among non-blacks MDRD (S/P/Bld) [Vol rate/Area] 105 mL/min/{1.73_m2} >60 [facility] Glucose Ql (U)Ordered By: Es Richardson on 09-21-2024 Urine glucose detection 1000 mg/dl High Normal [facility] Glucose [Mass/Vol]Ordered By : Riccardo Hillman on 09-21-2024 Serum glucose measurement (mass/volume) 336 mg/dL High 70-99 [facility] Hematocrit Auto (Bld) [Volum e fraction]Ordered By: Nina Richardson on 09-21-2024 Hematocrit (Bld) [Volume fraction] 37.7 % 37-47 [facility] Automated blood hematocrit (percentage) 37.7 % 37-47 [facility] Hemoglobin measurementOrdere d By: Nina Richardson on 09-21-2024 Hemoglobin (Bld) [Mass/Vol] 13.0 g/dL 12.0-15.0 [facility] Hemoglobin measurement 13.0 g/dL 12.0-15.0 [facility] Immature granulocytes/100 WB C Auto (Bld)Ordered By: Nina Richardson on 09-21-2024 Immature granulocytes/100 WBC (Bld) 0.300 % 0.0-0.9 [facility] Automated immature granulocyte percentage 0.300 % 0.0-0.9 [facility] Ketones Test strip Ql (U)Ord ered By: Nina Richardson on 09-21-2024 Ketones Ql (U) Negative Negative [facility] Lipaseon 09-21-2024 Lipase [Catalytic activity/Vol] 16 U/L Normal 13-75 [facility] Comment on above: Order Comment: REUBEN No. PREVIOUS SPECIMEN REJECTED DUE TOSPECIMEN BEING HEMOLYZED. 09/21/24 1315 Jevon Squires Result Comment: Gege edgar note:LIPASE revised reference range effective 22.New Lipase methodology. Expected to produce lower valuesthan the previous assay method.NEW Reference Range: 13 - 75 U/L Performed By: #### L 500.4050, L501.2450 ####[facility] [address] [place], [address] Lipase measurementOrdered By : Riccardo Hillman on 09-21-2024 Lipase measurement 16 U/L 13-75 [facility] Lymphocytes Auto (Unsp spec) [#/Vol]Ordered By: Nina Richardson on 09-21-2024 Absolute lymphocyte count 1.03 X10^3/uL 0.83-4.51 [facility] Lymphocytes/100 WBC Auto (Un sp spec)Ordered By: Nina Richardson on 09-21-2024 Automated lymphocyte count as percentage of total leukocytes 9.8 % Low 19-41 [facility] MCV (RBC) [Entitic vol]Order ed By: Nina Richardson on 09-21-2024 MCV (mean corpuscular volume) determination 84.0 fL 81-99 [facility] MCV (mean corpuscular volume ) determinationOrdered By: Nina Richardson on 09-21-2024 MCV (RBC) [Entitic vol] 84.0 fL 81-99 [facility] Mean corpuscular hemoglobin (MCH) determinationOrdered By: Nina Richardson on 09-21-2024 MCH (RBC) [Entitic mass] 29.0 pg 27.0-32.0 [facility] Mean corpuscular hemoglobin (MCH) determination 29.0 pg 27.0-32.0 [facility] Mean corpuscular hemoglobin concentration (MCHC) determinationOrdered By: Nina Richardson on 09-21-2024 Mean corpuscular hemoglobin concentration (MCHC) determination 34.5 g/dL 32-36 [facility] Mean platelet volume determi nationOrdered By: Nina Richardson on 09-21-2024 Mean platelet volume determination 9.3 fl 6.2-12.0 [facility] Microscopic analysis of urin e for red blood cells (RBC)Ordered By: Nina Richardson on 09-21-2024 Microscopic analysis of urine for red blood cells (RBC) 0-5 SEEN /hpf 5-10 [facility] Monocyte percentageOrdered B y: Nina Richardson on 09-21-2024 Monocytes/100 WBC (Bld) 4.3 % 0-10 [facility] Monocyte percentage 4.3 % 0-10 [facility] Mucus LM Ql (Urine sed)Order ed By: Nina Richardson on 09-21-2024 Mucus Ql (Urine sed) 0 SEEN /hpf [facility] Neutrophil percentageOrdered By: Nina Richardson on 09-21-2024 Neutrophils/100 WBC (Bld) 84.6 % High 47-70 [facility] Neutrophil percentage 84.6 % High 47-70 [facility] Nitrite Test strip Ql (U)Ord ered By: Nina Richardson on 09-21-2024 Nitrite Ql (U) Negative Negative [facility] No Panel InformationOrdered By: Riccardo Hillman on 09-21-2024 19 U/L <32 [facility] Nucleated red blood cell per centageOrdered By: Nina Richardson on 09-21-2024 Nucleated red blood cell percentage 0 % 0-5 [facility] Platelet countOrdered By: Es Richardson on 09-21-2024 Platelets (Bld) [#/Vol] 275 10*3/uL 150-450 [facility] Platelet count 275 K/mm3 150-450 [facility] Potassium (Unsp spec) [Mass/ Vol]Ordered By: Riccardo Hillman on 09-21-2024 Potassium measurement (mass/volume) 3.3 mmol/L 3.3-5.1 [facility] Potassium measurement (mass/ volume)Ordered By: Riccardo Hillman on 09-21-2024 Potassium (Unsp spec) [Mass/Vol] 3.3 mmol/L 3.3-5.1 [facility] Protein Test strip Ql (U)Ord ered By: Nina Richardson on 09-21-2024 Protein Ql (U) 100 mg/dl High Negative [facility] Urine protein assay by test strip, semi-quantitative 100 mg/dl High Negative [facility] RBC Auto (Bld) [#/Vol]Ordere d By: Nina Richardson on 09-21-2024 RBC (Bld) [#/Vol] 4.49 10*6/uL 4.2-5.4 [facility] Automated blood erythrocyte count 4.49 M/mm3 4.2-5.4 [facility] Serum creatinine measurement (mass/volume)Ordered By: Riccardo Hillman on 09-21-2024 Creatinine [Mass/Vol] 0.67 mg/dL Low 0.70-1.20 [facility] Serum globulin measurementOr dered By: Riccardo Hillman on 09-21-2024 Globulin (S) [Mass/Vol] 3.3 g/dL 2.2-4.2 [facility] Serum globulin measurement 3.3 g/dL 2.2-4.2 [facility] Serum glucose measurement (m ass/volume)Ordered By: Riccardo Hillman on 09-21-2024 Glucose [Mass/Vol] 336 mg/dL High 70-99 [facility] Serum or plasma alanine hamilton otransferase (ALT) measurementOrdered By: Riccardo Hillman on 09-21-2024 ALT [Catalytic activity/Vol] 13 U/L <35 [facility] Serum or plasma albumin xiomara urement (mass/volume)Ordered By: Riccardo Hlilman on 09-21-2024 Albumin [Mass/Vol] 3.6 g/dL 3.5-5.0 [facility] Serum or plasma albumin/glob ulin mass ratioOrdered By: Riccardo Hillman on 09-21-2024 Albumin/Globulin [Mass ratio] 1.1 {ratio} 0.9-2.4 [facility] Serum or plasma alkaline sabiha sphatase measurementOrdered By: Riccardo Hillman on 09-21-2024 ALP [Catalytic activity/Vol] 128 U/L High 35-104 [facility] Serum or plasma calcium xiomara urement (mass/volume)Ordered By: Riccardo Hillman on 09-21-2024 Calcium [Mass/Vol] 9.3 mg/dL 7.6-11.0 [facility] Serum or plasma urea nitroge n measurement (mass/volume)Ordered By: Riccardo Hillman on 09-21-2024 Urea nitrogen [Mass/Vol] 9 mg/dL 4-19 [facility] Sodium levelOrdered By: Riccardo Hillman on 09-21-2024 Sodium [Moles/Vol] 132 mmol/L Low 133-145 [facility] Sodium level 132 mmol/L Low 133-145 [facility] Specific gravity (U) [Rel de nsity]Ordered By: Nina Richardson on 09-21-2024 Urine specific gravity measurement 1.010 1.002-1.03 0 [facility] Squamous epithelial cells de tection in urine sediment by light microscopyOrdered By: Nina Richardson on 09-21-2024 Epithelial cells.squamous LM Ql (Urine sed) 0-5 SEEN /hpf 5- [facility] Total proteinOrdered By: Guerita Hillman on 09-21-2024 Protein [Mass/Vol] 6.9 g/dL 5.9-8.4 [facility] Total protein 6.9 g/dL 5.9-8.4 [facility] Urea nitrogen [Mass/Vol]Orde red By: Riccardo Hillman on 09-21-2024 Serum or plasma urea nitrogen measurement (mass/volume) 9 mg/dL - [facility] Urinalysis, Completeon 09-21 EPI,SQUAMOUS 0-5 SEEN Normal 5- [facility] Comment on above: Order Comment: LUISA CTOR TO SPECIFY Performed By: #### L 400.0001 ####[facility] [address] [facility] [address] RBC 0-5 SEEN Normal 0-5 [facility] [facility] Comment on above: Order Comment: LUISA CTOR TO SPECIFY Performed By: #### L 400.0001 ####[facility] [address] [place], [address] YEAST RARE Normal None Seen [facility] Comment on above: Order Comment: LUISA CTOR TO SPECIFY Performed By: #### L 400.0001 ####[facility] [address] [facility] [address] BACTERIA 0 SEEN Normal None Seen [facility] Comment on above: Order Comment: LUISA CTOR TO SPECIFY Performed By: #### L 400.0001 ####[facility] [address] [place], [address] Mucus Ql (Urine sed) 0 SEEN Normal [facility] Comment on above: Order Comment: LUISA CTOR TO SPECIFY Performed By: #### L 400.0001 ####[facility] [address] [facility] [address] WBC 0 SEEN Normal 0-5 [facility] Comment on above: Order Comment: COLLE CTOR TO SPECIFY Performed By: #### L 400.0001 ####[facility] [address] [place], [address] Urine blood detectionOrdered By: Nina Richardson on 09-21-2024 Urine blood detection 25 /ul High Negative [facility] Urine clarityOrdered By: Yamil Richardson on 09-21-2024 Clarity (U) Clear Clear [facility] Urine color determinationOrd ered By: Nina Richardson on 09-21-2024 Color (U) Yellow Yellow [facility] Urine glucose detectionOrder ed By: Nina Richardson on 09-21-2024 Glucose Ql (U) 1000 mg/dl High Normal [facility] Urine leukocyte esterase det ection by dipstickOrdered By: Nina Richardson on 09-21-2024 Leukocyte esterase Test strip Ql (U) Negative Negative [facility] Urine pHOrdered By: Martin Richradson on 09-21-2024 pH (U) 7.0 [pH] 5.0 - 8.0 [facility] Urine sediment bacteria coun t by microscopy (number/high power field)Ordered By: Nina Richardson on 09-21-2024 Bacteria LM.HPF (Urine sed) [#/Area] 0 /[HPF] None Seen [facility] Urine sediment yeast count b y microscopy (number/high powered field)Ordered By: Nina Richardson on 09-21-2024 Yeast LM.HPF (Urine sed) [#/Area] RARE /hpf None Seen [facility] Urine specific gravity measu rementOrdered By: Nina Richardson on 09-21-2024 Specific gravity (U) [Rel density] 1.010 1.002-1.03 0 [facility] Urine total bilirubin detect ion by test stripOrdered By: Nina Richardson on 09-21-2024 Urine total bilirubin detection by test strip Negative Negative [facility] Urine urobilinogen measureme ntOrdered By: Nina Richardson on 09-21-2024 Urobilinogen Ql (U) Normal mg/dl Normal [facility] Urobilinogen Ql (U)Ordered B y: Nina Richardson on 09-21-2024 Urine urobilinogen measurement Normal mg/dl Normal [facility] White blood cell (WBC) count Ordered By: Nina Richardson on 09-21-2024 WBC (Bld) [#/Vol] 10.5 10*3/uL 4.4-11.0 [facility] White blood cell (WBC) count 10.5 K/mm3 4.4-11.0 [facility] White blood cell countOrdere d By: Nina Richardson on 09-21-2024 White blood cell count 0 SEEN /hpf 0-5 [facility] White blood cell count 0 SEEN /hpf [facility] Yeast LM.HPF (Urine sed) [#/ Area]Ordered By: Nina Richardson on 09-21-2024 Urine sediment yeast count by microscopy (number/high powered field) RARE /hpf None Seen [facility] pH (U)Ordered By: Nina Richarsdon on 09-21-2024 Urine pH 7.0 5.0 - 8.0 [facility] Absolute lymphocyte countOrd ered By: Latricia Aaron on 09-16-2024 Lymphocytes Auto (Unsp spec) [#/Vol] 1.72 10*3/uL 0.83-4.51 [facility] Absolute neutrophil countOrd ered By: Latricia Aaron on 09-16-2024 Absolute neutrophil count 10.5 X10^3/uL High 2.0-7.7 [facility] Anion gap [Moles/Vol]Ordered By: Brenda Posadas on 09-16-2024 Anion gap in Serum or Plasma 10 10-16 [facility] Anion gap in Serum or Plasma Ordered By: Brenda Posadas on 09-16-2024 Anion gap [Moles/Vol] 10 mmol/L 10-16 [facility] Automated lymphocyte count a s percentage of total leukocytesOrdered By: Latricia Aaron on 09-16-2024 Lymphocytes/100 WBC Auto (Unsp spec) 13.0 % Low 19-41 [facility] BUN/creatinine ratioOrdered By: Brenda Posadas on 09-16-2024 Urea nitrogen/Creatinine [Mass ratio] 24.8 mg/mg High 10-20 [facility] BUN/creatinine ratio 24.8 RATIO High 10-20 [facility] Basic Metabolic Profile (BMP )on 09-16-2024 BUN/CRE 24.8 RATIO High -20 [facility] Comment on above: Performed By: #### L 500.2500, L100.0100 ####[facility] [address] [place], [address] Calcium [Mass/Vol] 9.3 mg/dL Normal 7.6-11.0 [facility] Comment on above: Performed By: #### L 500.2500, L100.0100 ####[facility] [address] [place], [address] Chloride [Moles/Vol] 101 mmol/L Normal 98-108 [facility] Comment on above: Performed By: #### L 500.2500, L100.0100 ####[facility] [address] [place], [address] CO2 [Moles/Vol] 27.0 mmol/L Normal 21.0-32.0 [facility] Comment on above: Performed By: #### L 500.2500, L100.0100 ####[facility] [address] [place], [address] Creatinine [Mass/Vol] 0.69 mg/dL Low 0.70-1.20 [facility] Comment on above: Performed By: #### L 500.2500, L100.0100 ####[facility] [address] [place], [address] ECRCL 104.49 ml/min Normal 50-250 [facility] Comment on above: Performed By: #### L 500.2500, L100.0100 ####[facility] [address] [place], [address] GAP 10 Normal 5-15 [facility] Comment on above: Performed By: #### L 500.2500, L100.0100 ####[facility] [address] [place], [address] GFR/1.73 sq M.predicted among non-blacks MDRD (S/P/Bld) [Vol rate/Area] 104 mL/min/{1.73_m2} Normal >60 [facility] Comment on above: Result Comment: mL/m in/1.73m2 CKD-EPI Creatinine Equation (2020) Performed By: #### L 500.2500, L100.0100 ####[facility] [address] [place], [address] Glucose [Mass/Vol] 195 mg/dL High 70-99 [facility] Comment on above: Performed By: #### L 500.2500, L100.0100 ####[facility] [address] [place], [address] Potassium [Moles/Vol] 4.1 mmol/L Normal 3.3-5.1 [facility] Comment on above: Performed By: #### L 500.2500, L100.0100 ####[facility] [address] [place], [address] Sodium [Moles/Vol] 138 mmol/L Normal 133-145 [facility] Comment on above: Performed By: #### L 500.2500, L100.0100 ####[facility] [address] [place], [address] Urea nitrogen [Mass/Vol] 17 mg/dL Normal 4-19 [facility] Comment on above: Performed By: #### L 500.2500, L100.0100 ####[facility] [address] [place], [address] Basophil percentageOrdered B y: Latricia Aaron on 09-16-2024 Basophils/100 WBC (Bld) 0.4 % 0-1 [facility] Basophil percentage 0.4 % 0-1 [facility] Bedside Glucoseon 09-16-2024 FINGERSTICK GLU 204 mg/dL High 74-106 [facility] Comment on above: Result Comment: TALIA GEMENT OF PATIENT CARE PER NURSING PROTOCOL Performed By: #### L 501.080 ####[facility] [address] [place], [address] FINGERSTICK GLU 215 mg/dL High 74-106 [facility] Comment on above: Result Comment: TALIA GEMENT OF PATIENT CARE PER NURSING PROTOCOL Performed By: #### L 501.080 ####[facility] [address] [place], [address] CBC W/Diff, Automatedon 09-02 Absolute Lymph 1.72 X10 3/uL Normal 0.83-4.51 [facility] Comment on above: Performed By: #### L 100.0100 ####[facility] [address] [place], [address] Absolute Neut 10.5 X10 3/uL High 2.0-7.7 [facility] Comment on above: Performed By: #### L 100.0100 ####[facility] [address] [place], [address] Basophils/100 WBC (Bld) 0.4 % Normal 0-1 [facility] Comment on above: Performed By: #### L 100.0100 ####[facility] [address] [place], [address] Eosinophils/100 WBC (Bld) 0.5 % Normal 0-5 [facility] Comment on above: Performed By: #### L 100.0100 ####[facility] [address] [place], [address] Erythrocyte distribution width (RBC) [Ratio] 13.8 % Normal 11.6-14.6 [facility] Comment on above: Performed By: #### L 100.0100 ####[facility] [address] [place], [address] Hematocrit (Bld) [Volume fraction] 35.1 % Low 37-47 [facility] Comment on above: Performed By: #### L 100.0100 ####[facility] [address] [place], [address] Hemoglobin (Bld) [Mass/Vol] 11.4 g/dL Low 12.0-15.0 [facility] Comment on above: Performed By: #### L 100.0100 ####[facility] [address] [place], [address] IG% 0.500 Normal 0.0-0.9 [facility] Comment on above: Result Comment: IG% - Immature Granulocytes (promyelocytes, myelocytes andmetamyelocytes) > 1% indicates that a LEFT SHIFT is Present. Performed By: #### L 100.0100 ####[facility] [address] [place], [address] Lymphocytes/100 WBC (Bld) 13.0 % Low 19-41 [facility] Comment on above: Performed By: #### L 100.0100 ####[facility] [address] [place], [address] MCH (RBC) [Entitic mass] 27.9 pg Normal 27.0-32.0 [facility] Comment on above: Performed By: #### L 100.0100 ####[facility] [address] [place], [address] MCHC (RBC) [Mass/Vol] 32.5 g/dL Normal 32-36 [facility] Comment on above: Performed By: #### L 100.0100 ####[facility] [address] [place], [address] MCV (RBC) [Entitic vol] 85.8 fL Normal 81-99 [facility] Comment on above: Performed By: #### L 100.0100 ####[facility] [address] [place], [address] Monocytes/100 WBC (Bld) 6.2 % Normal 0-10 [facility] Comment on above: Performed By: #### L 100.0100 ####[facility] [address] [place], [address] Neutrophils/100 WBC (Bld) 79.4 % High 47-70 [facility] Comment on above: Performed By: #### L 100.0100 ####[facility] [address] [place], [address] Nucleated RBC (Bld) [#/Vol] 0 10*3/uL Normal 0-5 [facility] Comment on above: Performed By: #### L 100.0100 ####[facility] [address] [place], [address] Platelet mean volume (Bld) [Entitic vol] 9.9 fL Normal 6.2-12.0 [facility] Comment on above: Performed By: #### L 100.0100 ####[facility] [address] [place], [address] Platelets (Bld) [#/Vol] 229 10*3/uL Normal 150-450 [facility] Comment on above: Performed By: #### L 100.0100 ####[facility] [address] [place], [address] RBC (Bld) [#/Vol] 4.09 10*6/uL Low 4.2-5.4 [facility] Comment on above: Performed By: #### L 100.0100 ####[facility] [address] [place], [address] RDW SD 43.5 fl Normal 35.1-43.9 [facility] Comment on above: Performed By: #### L 100.0100 ####[facility] [address] [place], [address] WBC (Bld) [#/Vol] 13.2 10*3/uL High 4.4-11.0 [facility] Comment on above: Performed By: #### L 100.0100 ####[facility] [address] [place], [address] Absolute Neut Normal 2.0-7.7 [facility] Comment on above: Result Comment: CLOT FREDDY, SPOKE WITH RANGLE Performed By: #### L 500.2500, L100.0100 ####[facility] [address] [place], [address] HCT Normal 37-47 [facility] Comment on above: Result Comment: CLOT FREDDY, SPOKE WITH RANGLE Performed By: #### L 500.2500, L100.0100 ####[facility] [address] [place], [address] HGB Normal 12.0-15.0 [facility] Comment on above: Result Comment: CLOT FREDDY, SPOKE WITH RANGLE Performed By: #### L 500.2500, L100.0100 ####[facility] [address] [place], [address] MCH Normal 27.0-32.0 [facility] Comment on above: Result Comment: CLOT FREDDY, SPOKE WITH RANGLE Performed By: #### L 500.2500, L100.0100 ####[facility] [address] [place], [address] MCHC Normal 32-36 [facility] Comment on above: Result Comment: CLOT FREDDY, SPOKE WITH RANGLE Performed By: #### L 500.2500, L100.0100 ####[facility] [address] [place], [address] MCV Normal 81-99 [facility] Comment on above: Result Comment: CLOT FREDDY, SPOKE WITH RANGLE Performed By: #### L 500.2500, L100.0100 ####[facility] [address] [place], [address] NEUT% Normal 47-70 [facility] Comment on above: Result Comment: CLOT FREDDY, SPOKE WITH RANGLE Performed By: #### L 500.2500, L100.0100 ####[facility] [address] [place], [address] PLT Normal 150-450 [facility] Comment on above: Result Comment: CLOT FREDDY, SPOKE WITH RANGLE Performed By: #### L 500.2500, L100.0100 ####[facility] [address] [place], [address] RBC Normal 4.2-5.4 [facility] Comment on above: Result Comment: CLOT FREDDY, SPOKE WITH RANGLE Performed By: #### L 500.2500, L100.0100 ####[facility] [address] [place], [address] RDW CV Normal 11.6-14.6 [facility] Comment on above: Result Comment: CLOT FREDDY, SPOKE WITH RANGLE Performed By: #### L 500.2500, L100.0100 ####[facility] [address] [place], [address] RDW SD Normal 35.1-43.9 [facility] Comment on above: Result Comment: CLOT FREDDY, SPOKE WITH RANGLE Performed By: #### L 500.2500, L100.0100 ####[facility] [address] [place], [address] WBC Normal 4.4-11.0 [facility] Comment on above: Result Comment: CLOT FREDDY, SPOKE WITH RANGLE Performed By: #### L 500.2500, L100.0100 ####[facility] [address] [place], [address] Calcium [Mass/Vol]Ordered By : Brenda Posadas on 09-16-2024 Serum or plasma calcium measurement (mass/volume) 9.3 mg/dL 7.6-11.0 [facility] Carbon dioxide, total [Moles /volume] in Central venous bloodOrdered By: Brenda Posadas on 09-16-2024 CO2 [Moles/Vol] 27.0 mmol/L 21.0-32.0 [facility] Carbon dioxide, total [Moles/volume] in Central venous blood 27.0 mmol/L 21.0-32.0 [facility] Chloride assayOrdered By: Martin Posadas on 09-16-2024 Chloride [Moles/Vol] 101 mmol/L 98-108 [facility] Chloride assay 101 mmol/L 98-108 [facility] Creatinine [Mass/Vol]Ordered By: Brenda Posadas on 09-16-2024 Serum creatinine measurement (mass/volume) 0.69 mg/dL Low 0.70-1.20 [facility] Eosinophil percentageOrdered By: Latricia Aaron on 09-16-2024 Eosinophils/100 WBC (Bld) 0.5 % 0-5 [facility] Eosinophil percentage 0.5 % 0-5 [facility] Erythrocyte distribution wid th (RBC) [Ratio]Ordered By: Latricia Aaron on 09-16-2024 Erythrocyte distribution width ratio 13.8 % 11.6-14.6 [facility] Erythrocyte distribution width standard deviation 43.5 fl 35.1-43.9 [facility] Erythrocyte distribution wid th ratioOrdered By: Latricia Aaron on 09-16-2024 Erythrocyte distribution width (RBC) [Ratio] 13.8 % 11.6-14.6 [facility] Erythrocyte distribution wid th standard deviationOrdered By: Latricia Aaron on 09-16-2024 Erythrocyte distribution width (RBC) [Ratio] 43.5 fl 35.1-43.9 [facility] Estimation of creatinine sylvain aranceOrdered By: Brenda Posadas on 09-16-2024 Estimation of creatinine clearance 104.49 ml/min 50-250 [facility] GFR/1.73 sq M.predicted estephanie g non-blacks MDRD (S/P/Bld) [Vol rate/Area]Ordered By: Brenda Posadas on 09-16-2024 Glomerular filtration rate (GFR) estimation/1.73 sq m using serum, plasma, or whole b 104 >60 [facility] Glomerular filtration rate ( GFR) estimation/1.73 sq m using serum, plasma, or whole bOrdered By: Brenda Posadas on 09-16-2024 GFR/1.73 sq M.predicted among non-blacks MDRD (S/P/Bld) [Vol rate/Area] 104 mL/min/{1.73_m2} >60 [facility] Glucose [Mass/Vol]Ordered By : Brenda Posadas on 09-16-2024 Serum glucose measurement (mass/volume) 195 mg/dL High 70-99 [facility] Glucose measurement at bedsi deOrdered By: Latricia Aaron on 09-16-2024 Glucose [Mass/Vol] 204 mg/dL High 74-106 [facility] Glucose measurement at bedside 204 mg/dL High 74-106 [facility] Hematocrit Auto (Bld) [Volum e fraction]Ordered By: Latricia Aaron on 09-16-2024 Hematocrit (Bld) [Volume fraction] 35.1 % Low 37-47 [facility] Automated blood hematocrit (percentage) 35.1 % Low 37-47 [facility] Hemoglobin measurementOrdere d By: Latricia Aaron on 09-16-2024 Hemoglobin (Bld) [Mass/Vol] 11.4 g/dL Low 12.0-15.0 [facility] Hemoglobin measurement 11.4 g/dL Low 12.0-15.0 [facility] Immature granulocytes/100 WB C Auto (Bld)Ordered By: Latricia Aaron on 09-16-2024 Immature granulocytes/100 WBC (Bld) 0.500 % 0.0-0.9 [facility] Automated immature granulocyte percentage 0.500 % 0.0-0.9 [facility] Lymphocytes Auto (Unsp spec) [#/Vol]Ordered By: Latricia Aaron on 09-16-2024 Absolute lymphocyte count 1.72 X10^3/uL 0.83-4.51 [facility] Lymphocytes/100 WBC Auto (Un sp spec)Ordered By: Latricia Aaron on 09-16-2024 Automated lymphocyte count as percentage of total leukocytes 13.0 % Low 19-41 [facility] MCV (RBC) [Entitic vol]Order ed By: Latricia Aaron on 09-16-2024 MCV (mean corpuscular volume) determination 85.8 fL 81-99 [facility] MCV (mean corpuscular volume ) determinationOrdered By: Latricia Aaron on 09-16-2024 MCV (RBC) [Entitic vol] 85.8 fL 81-99 [facility] Mean corpuscular hemoglobin (MCH) determinationOrdered By: Latricia Aaron on 09-16-2024 MCH (RBC) [Entitic mass] 27.9 pg 27.0-32.0 [facility] Mean corpuscular hemoglobin (MCH) determination 27.9 pg 27.0-32.0 [facility] Mean corpuscular hemoglobin concentration (MCHC) determinationOrdered By: Latricia Aaron on 09-16-2024 Mean corpuscular hemoglobin concentration (MCHC) determination 32.5 g/dL 32-36 [facility] Mean platelet volume determi nationOrdered By: Latricia Aaron on 09-16-2024 Mean platelet volume determination 9.9 fl 6.2-12.0 [facility] Monocyte percentageOrdered B y: Latricia Aaron on 09-16-2024 Monocytes/100 WBC (Bld) 6.2 % 0-10 [facility] Monocyte percentage 6.2 % 0-10 [facility] Neutrophil percentageOrdered By: Latricia Aaron on 09-16-2024 Neutrophils/100 WBC (Bld) 79.4 % High 47-70 [facility] Neutrophil percentage 79.4 % High 47-70 [facility] Nucleated red blood cell per centageOrdered By: Latricia Aaron on 09-16-2024 Nucleated red blood cell percentage 0 % 0-5 [facility] Platelet countOrdered By: Tristan Aaron on 09-16-2024 Platelets (Bld) [#/Vol] 229 10*3/uL 150-450 [facility] Platelet count 229 K/mm3 150-450 [facility] Potassium (Unsp spec) [Mass/ Vol]Ordered By: Brenda Posadas on 09-16-2024 Potassium measurement (mass/volume) 4.1 mmol/L 3.3-5.1 [facility] Potassium measurement (mass/ volume)Ordered By: Brenda Posadas on 09-16-2024 Potassium (Unsp spec) [Mass/Vol] 4.1 mmol/L 3.3-5.1 [facility] RBC Auto (Bld) [#/Vol]Ordere d By: Latricia Aaron on 09-16-2024 RBC (Bld) [#/Vol] 4.09 10*6/uL Low 4.2-5.4 [facility] Automated blood erythrocyte count 4.09 M/mm3 Low 4.2-5.4 [facility] Serum creatinine measurement (mass/volume)Ordered By: Brenda Posadas on 09-16-2024 Creatinine [Mass/Vol] 0.69 mg/dL Low 0.70-1.20 [facility] Serum glucose measurement (m ass/volume)Ordered By: Brenda Posadas on 09-16-2024 Glucose [Mass/Vol] 195 mg/dL High 70-99 [facility] Serum or plasma calcium xiomara urement (mass/volume)Ordered By: Brenda Posadas on 09-16-2024 Calcium [Mass/Vol] 9.3 mg/dL 7.6-11.0 [facility] Serum or plasma urea nitroge n measurement (mass/volume)Ordered By: Brenda Posadas on 09-16-2024 Urea nitrogen [Mass/Vol] 17 mg/dL - [facility] Sodium levelOrdered By: Gavi Posadas on 09-16-2024 Sodium [Moles/Vol] 138 mmol/L 133-145 [facility] Sodium level 138 mmol/L 133-145 [facility] Urea nitrogen [Mass/Vol]Orde red By: Brenda Posadas on 09-16-2024 Serum or plasma urea nitrogen measurement (mass/volume) 17 mg/dL - [facility] White blood cell (WBC) count Ordered By: Latricia Aaron on 09-16-2024 WBC (Bld) [#/Vol] 13.2 10*3/uL High 4.4-11.0 [facility] White blood cell (WBC) count 13.2 K/mm3 High 4.4-11.0 [facility] Basic Metabolic Profile (BMP )on 09-15-2024 BUN/CRE 19.5 RATIO Normal 10-20 [facility] Comment on above: Performed By: #### L 500.2500, L100.0100 ####[facility] [address] [place], [address] Calcium [Mass/Vol] 9.1 mg/dL Normal 7.6-11.0 [facility] Comment on above: Performed By: #### L 500.2500, L100.0100 ####[facility] [address] [place], [address] Chloride [Moles/Vol] 100 mmol/L Normal 98-108 [facility] Comment on above: Performed By: #### L 500.2500, L100.0100 ####[facility] [address] [place], [address] CO2 [Moles/Vol] 27.6 mmol/L Normal 21.0-32.0 [facility] Comment on above: Performed By: #### L 500.2500, L100.0100 ####[facility] [address] [place], [address] Creatinine [Mass/Vol] 0.79 mg/dL Normal 0.70-1.20 [facility] Comment on above: Performed By: #### L 500.2500, L100.0100 ####[facility] [address] [place], [address] ECRCL 93.04 ml/min Normal 50-250 [facility] Comment on above: Performed By: #### L 500.2500, L100.0100 ####[facility] [address] [place], [address] GAP 8 Normal 5-15 [facility] Comment on above: Performed By: #### L 500.2500, L100.0100 ####[facility] [address] [place], [address] GFR/1.73 sq M.predicted among non-blacks MDRD (S/P/Bld) [Vol rate/Area] 89 mL/min/{1.73_m2} Normal >60 [facility] Comment on above: Result Comment: mL/m in/1.73m2 CKD-EPI Creatinine Equation (2020) Performed By: #### L 500.2500, L100.0100 ####[facility] [address] [place], [address] Glucose [Mass/Vol] 172 mg/dL High 70-99 [facility] Comment on above: Performed By: #### L 500.2500, L100.0100 ####[facility] [address] [place], [address] Potassium [Moles/Vol] 3.9 mmol/L Normal 3.3-5.1 [facility] Comment on above: Performed By: #### L 500.2500, L100.0100 ####[facility] [address] [place], [address] Sodium [Moles/Vol] 136 mmol/L Normal 133-145 [facility] Comment on above: Performed By: #### L 500.2500, L100.0100 ####[facility] [address] [place], [address] Urea nitrogen [Mass/Vol] 15 mg/dL Normal 4-19 [facility] Comment on above: Performed By: #### L 500.2500, L100.0100 ####[facility] [address] [place], [address] Bedside Glucoseon 09-15-2024 FINGERSTICK GLU 278 mg/dL High 74-106 [facility] Comment on above: Result Comment: TALIA CHAMBERS OF PATIENT CARE PER NURSING PROTOCOL Performed By: #### L 501.080 ####[facility] [address] [place], [address] FINGERSTICK GLU 218 mg/dL High 74-106 [facility] Comment on above: Result Comment: TALIA GEMENT OF PATIENT CARE PER NURSING PROTOCOL Performed By: #### L 501.080 ####[facility] [address] [place], [address] FINGERSTICK GLU 234 mg/dL High 74-106 [facility] Comment on above: Result Comment: TALIA GEMENT OF PATIENT CARE PER NURSING PROTOCOL Performed By: #### L 501.080 ####[facility] [address] [place], [address] FINGERSTICK GLU 188 mg/dL High 74-106 [facility] Comment on above: Result Comment: TALIA GEMENT OF PATIENT CARE PER NURSING PROTOCOL Performed By: #### L 501.080 ####[facility] [address] [place], [address] CBC W/Diff, Automatedon 09-02 Absolute Lymph 1.34 X10 3/uL Normal 0.83-4.51 [facility] Comment on above: Performed By: #### L 500.2500, L100.0100 ####[facility] [address] [place], [address] Absolute Neut 6.8 X10 3/uL Normal 2.0-7.7 [facility] Comment on above: Performed By: #### L 500.2500, L100.0100 ####[facility] [address] [place], [address] Basophils/100 WBC (Bld) 0.7 % Normal 0-1 [facility] Comment on above: Performed By: #### L 500.2500, L100.0100 ####[facility] [address] [place], [address] Eosinophils/100 WBC (Bld) 1.2 % Normal 0-5 [facility] Comment on above: Performed By: #### L 500.2500, L100.0100 ####[facility] [address] [place], [address] Erythrocyte distribution width (RBC) [Ratio] 14.0 % Normal 11.6-14.6 [facility] Comment on above: Performed By: #### L 500.2500, L100.0100 ####[facility] [address] [place], [address] Hematocrit (Bld) [Volume fraction] 32.2 % Low 37-47 [facility] Comment on above: Performed By: #### L 500.2500, L100.0100 ####[facility] [address] [place], [address] Hemoglobin (Bld) [Mass/Vol] 10.3 g/dL Low 12.0-15.0 [facility] Comment on above: Performed By: #### L 500.2500, L100.0100 ####[facility] [address] [place], [address] IG% 0.400 Normal 0.0-0.9 [facility] Comment on above: Result Comment: IG% - Immature Granulocytes (promyelocytes, myelocytes andmetamyelocytes) > 1% indicates that a LEFT SHIFT is Present. Performed By: #### L 500.2500, L100.0100 ####[facility] [address] [place], [address] Lymphocytes/100 WBC (Bld) 14.8 % Low 19-41 [facility] Comment on above: Performed By: #### L 500.2500, L100.0100 ####[facility] [address] [place], [address] MCH (RBC) [Entitic mass] 27.5 pg Normal 27.0-32.0 [facility] Comment on above: Performed By: #### L 500.2500, L100.0100 ####[facility] [address] [place], [address] MCHC (RBC) [Mass/Vol] 32.0 g/dL Normal 32-36 [facility] Comment on above: Performed By: #### L 500.2500, L100.0100 ####[facility] [address] [place], [address] MCV (RBC) [Entitic vol] 86.1 fL Normal 81-99 [facility] Comment on above: Performed By: #### L 500.2500, L100.0100 ####[facility] [address] [place], [address] Monocytes/100 WBC (Bld) 8.1 % Normal 0-10 [facility] Comment on above: Performed By: #### L 500.2500, L100.0100 ####[facility] [address] [place], [address] Neutrophils/100 WBC (Bld) 74.8 % High 47-70 [facility] Comment on above: Performed By: #### L 500.2500, L100.0100 ####[facility] [address] [place], [address] Nucleated RBC (Bld) [#/Vol] 0 10*3/uL Normal 0-5 [facility] Comment on above: Performed By: #### L 500.2500, L100.0100 ####[facility] [address] [place], [address] Platelet mean volume (Bld) [Entitic vol] 10.0 fL Normal 6.2-12.0 [facility] Comment on above: Performed By: #### L 500.2500, L100.0100 ####[facility] [address] [place], [address] Platelets (Bld) [#/Vol] 211 10*3/uL Normal 150-450 [facility] Comment on above: Performed By: #### L 500.2500, L100.0100 ####[facility] [address] [place], [address] RBC (Bld) [#/Vol] 3.74 10*6/uL Low 4.2-5.4 [facility] Comment on above: Performed By: #### L 500.2500, L100.0100 ####[facility] [address] [place], [address] RDW SD 43.8 fl Normal 35.1-43.9 [facility] Comment on above: Performed By: #### L 500.2500, L100.0100 ####[facility] [address] [place], [address] WBC (Bld) [#/Vol] 9.0 10*3/uL Normal 4.4-11.0 [facility] Comment on above: Performed By: #### L 500.2500, L100.0100 ####[facility] [address] [place], [address] Consultation - Urologyon Consultation - Urology Normal [facility] Urine Cultureon 09-15-2024 URC Below infection leve l. Yeast, not Ashley albicans Corbin Count 1000-10,000 Normal [facility] Comment on above: Performed By: #### L 400.0001, M100.2200 ####[facility] [address] [place], [address] Basic Metabolic Profile (BMP )on 09-14-2024 BUN/CRE 25.9 RATIO High 10-20 [facility] Comment on above: Performed By: #### L 500.2500, L100.0100 ####[facility] [address] [place], [address] Calcium [Mass/Vol] 9.0 mg/dL Normal 7.6-11.0 [facility] Comment on above: Performed By: #### L 500.2500, L100.0100 ####[facility] [address] [place], [address] Chloride [Moles/Vol] 103 mmol/L Normal 98-108 [facility] Comment on above: Performed By: #### L 500.2500, L100.0100 ####[facility] [address] [place], [address] CO2 [Moles/Vol] 20.0 mmol/L Low 21.0-32.0 [facility] Comment on above: Performed By: #### L 500.2500, L100.0100 ####[facility] [address] [place], [address] Creatinine [Mass/Vol] 0.81 mg/dL Normal 0.70-1.20 [facility] Comment on above: Performed By: #### L 500.2500, L100.0100 ####[facility] [address] [place], [address] ECRCL 90.18 ml/min Normal 50-250 [facility] Comment on above: Performed By: #### L 500.2500, L100.0100 ####[facility] [address] [place], [address] GAP 11 Normal 5-15 [facility] Comment on above: Performed By: #### L 500.2500, L100.0100 ####[facility] [address] [place], [address] GFR/1.73 sq M.predicted among non-blacks MDRD (S/P/Bld) [Vol rate/Area] 87 mL/min/{1.73_m2} Normal >60 [facility] Comment on above: Result Comment: mL/m in/1.73m2 CKD-EPI Creatinine Equation (2020) Performed By: #### L 500.2500, L100.0100 ####[facility] [address] [place], [address] Glucose [Mass/Vol] 181 mg/dL High 70-99 [facility] Comment on above: Performed By: #### L 500.2500, L100.0100 ####[facility] [address] [place], [address] Potassium [Moles/Vol] 4.6 mmol/L Normal 3.3-5.1 [facility] Comment on above: Result Comment: Hemo lysis present, Results??could be affected.?? Performed By: #### L 500.2500, L100.0100 ####[facility] [address] [place], [address] Sodium [Moles/Vol] 134 mmol/L Normal 133-145 [facility] Comment on above: Performed By: #### L 500.2500, L100.0100 ####[facility] [address] [place], [address] Urea nitrogen [Mass/Vol] 21 mg/dL High 4-19 [facility] Comment on above: Performed By: #### L 500.2500, L100.0100 ####[facility] [address] [place], [address] Bedside Glucoseon 09-14-2024 FINGERSTICK GLU 188 mg/dL High 74-106 [facility] Comment on above: Result Comment: TALIA GEMENT OF PATIENT CARE PER NURSING PROTOCOL Performed By: #### L 501.080 ####[facility] [address] [place], [address] FINGERSTICK GLU 248 mg/dL High 74-106 [facility] Comment on above: Result Comment: TALIA GEMENT OF PATIENT CARE PER NURSING PROTOCOL Performed By: #### L 501.080 ####[facility] [address] [place], [address] FINGERSTICK GLU 288 mg/dL High 74-106 [facility] Comment on above: Result Comment: TALIA GEMENT OF PATIENT CARE PER NURSING PROTOCOL Performed By: #### L 501.080 ####[facility] [address] [place], [address] FINGERSTICK GLU 172 mg/dL High 74-106 [facility] Comment on above: Result Comment: TALIA GEMENT OF PATIENT CARE PER NURSING PROTOCOL Performed By: #### L 501.080 ####[facility] [address] [place], [address] CBC W/Diff, Automatedon 09-02 Platelets (Bld) [#/Vol] 129 10*3/uL Low 150-450 [facility] Comment on above: Performed By: #### L 500.2500, L100.0100 ####[facility] [address] [place], [address] Culture, Blood (WB)on 2024 CUB LHAND Blood cultures x2, from two different sites No growth in 5 days. Normal [facility] Comment on above: Performed By: #### M 200.1000 ####[facility] [address] [place], [address] Basic Metabolic Profile (BMP )on 09-13-2024 BUN/CRE 17.6 RATIO Normal 10-20 [facility] Comment on above: Performed By: #### L 100.0100, L500.2500 ####[facility] [address] [place], [address] Calcium [Mass/Vol] 9.1 mg/dL Normal 7.6-11.0 [facility] Comment on above: Performed By: #### L 100.0100, L500.2500 ####[facility] [address] [place], [address] Chloride [Moles/Vol] 104 mmol/L Normal 98-108 [facility] Comment on above: Performed By: #### L 100.0100, L500.2500 ####[facility] [address] [place], [address] CO2 [Moles/Vol] 21.1 mmol/L Normal 21.0-32.0 [facility] Comment on above: Performed By: #### L 100.0100, L500.2500 ####[facility] [address] [place], [address] Creatinine [Mass/Vol] 1.02 mg/dL Normal 0.70-1.20 [facility] Comment on above: Performed By: #### L 100.0100, L500.2500 ####[facility] [address] [place], [address] ECRCL 71.49 ml/min Normal 50-250 [facility] Comment on above: Performed By: #### L 100.0100, L500.2500 ####[facility] [address] [place], [address] GAP 11 Normal 5-15 [facility] Comment on above: Performed By: #### L 100.0100, L500.2500 ####[facility] [address] [place], [address] GFR/1.73 sq M.predicted among non-blacks MDRD (S/P/Bld) [Vol rate/Area] 66 mL/min/{1.73_m2} Normal >60 [facility] Comment on above: Result Comment: mL/m in/1.73m2 CKD-EPI Creatinine Equation (2020) Performed By: #### L 100.0100, L500.2500 ####[facility] [address] [place], [address] Glucose [Mass/Vol] 223 mg/dL High 70-99 [facility] Comment on above: Performed By: #### L 100.0100, L500.2500 ####[facility] [address] [place], [address] Potassium [Moles/Vol] 4.2 mmol/L Normal 3.3-5.1 [facility] Comment on above: Performed By: #### L 100.0100, L500.2500 ####[facility] [address] [place], [address] Sodium [Moles/Vol] 136 mmol/L Normal 133-145 [facility] Comment on above: Performed By: #### L 100.0100, L500.2500 ####[facility] [address] [place], [address] Urea nitrogen [Mass/Vol] 18 mg/dL Normal 4-19 [facility] Comment on above: Performed By: #### L 100.0100, L500.2500 ####[facility] [address] [place], [address] Bedside Glucoseon 09-13-2024 FINGERSTICK GLU 207 mg/dL High 74-106 [facility] Comment on above: Result Comment: TALIA GEMENT OF PATIENT CARE PER NURSING PROTOCOL Performed By: #### L 501.080 ####[facility] [address] [place], [address] FINGERSTICK GLU 249 mg/dL High 74-106 [facility] Comment on above: Result Comment: TALIA GEMENT OF PATIENT CARE PER NURSING PROTOCOL Performed By: #### L 501.080 ####[facility] [address] [place], [address] FINGERSTICK GLU 181 mg/dL High 74-106 [facility] Comment on above: Result Comment: TALIA GEMENT OF PATIENT CARE PER NURSING PROTOCOL Performed By: #### L 501.080 ####[facility] [address] [place], [address] FINGERSTICK GLU 214 mg/dL High 74-106 [facility] Comment on above: Result Comment: TALIA GEMENT OF PATIENT CARE PER NURSING PROTOCOL Performed By: #### L 501.080 ####[facility] [address] [place], [address] CBC W/Diff, Automatedon 09-02 Absolute Lymph 1.69 X10 3/uL Normal 0.83-4.51 [facility] Comment on above: Performed By: #### L 100.0100, L500.2500 ####[facility] [address] [place], [address] Absolute Neut 8.9 X10 3/uL High 2.0-7.7 [facility] Comment on above: Performed By: #### L 100.0100, L500.2500 ####[facility] [address] [place], [address] Basophils/100 WBC (Bld) 0.9 % Normal 0-1 [facility] Comment on above: Performed By: #### L 100.0100, L500.2500 ####[facility] [address] [place], [address] Eosinophils/100 WBC (Bld) 1.6 % Normal 0-5 [facility] Comment on above: Performed By: #### L 100.0100, L500.2500 ####[facility] [address] [place], [address] Erythrocyte distribution width (RBC) [Ratio] 14.0 % Normal 11.6-14.6 [facility] Comment on above: Performed By: #### L 100.0100, L500.2500 ####[facility] [address] [place], [address] Hematocrit (Bld) [Volume fraction] 35.1 % Low 37-47 [facility] Comment on above: Performed By: #### L 100.0100, L500.2500 ####[facility] [address] [place], [address] Hemoglobin (Bld) [Mass/Vol] 11.3 g/dL Low 12.0-15.0 [facility] Comment on above: Performed By: #### L 100.0100, L500.2500 ####[facility] [address] [place], [address] IG% 0.600 Normal 0.0-0.9 [facility] Comment on above: Result Comment: IG% - Immature Granulocytes (promyelocytes, myelocytes andmetamyelocytes) > 1% indicates that a LEFT SHIFT is Present. Performed By: #### L 100.0100, L500.2500 ####[facility] [address] [place], [address] Lymphocytes/100 WBC (Bld) 14.4 % Low 19-41 [facility] Comment on above: Performed By: #### L 100.0100, L500.2500 ####[facility] [address] [place], [address] MCH (RBC) [Entitic mass] 28.2 pg Normal 27.0-32.0 [facility] Comment on above: Performed By: #### L 100.0100, L500.2500 ####[facility] [address] [place], [address] MCHC (RBC) [Mass/Vol] 32.2 g/dL Normal 32-36 [facility] Comment on above: Performed By: #### L 100.0100, L500.2500 ####[facility] [address] [place], [address] MCV (RBC) [Entitic vol] 87.5 fL Normal 81-99 [facility] Comment on above: Performed By: #### L 100.0100, L500.2500 ####[facility] [address] [place], [address] Monocytes/100 WBC (Bld) 6.9 % Normal 0-10 [facility] Comment on above: Performed By: #### L 100.0100, L500.2500 ####[facility] [address] [place], [address] Neutrophils/100 WBC (Bld) 75.6 % High 47-70 [facility] Comment on above: Performed By: #### L 100.0100, L500.2500 ####[facility] [address] [place], [address] Nucleated RBC (Bld) [#/Vol] 0 10*3/uL Normal 0-5 [facility] Comment on above: Performed By: #### L 100.0100, L500.2500 ####[facility] [address] [place], [address] Platelet mean volume (Bld) [Entitic vol] 10.1 fL Normal 6.2-12.0 [facility] Comment on above: Performed By: #### L 100.0100, L500.2500 ####[facility] [address] [place], [address] Platelets (Bld) [#/Vol] 232 10*3/uL Normal 150-450 [facility] Comment on above: Performed By: #### L 100.0100, L500.2500 ####[facility] [address] [place], [address] RBC (Bld) [#/Vol] 4.01 10*6/uL Low 4.2-5.4 [facility] Comment on above: Performed By: #### L 100.0100, L500.2500 ####[facility] [address] [place], [address] RDW SD 44.9 fl High 35.1-43.9 [facility] Comment on above: Performed By: #### L 100.0100, L500.2500 ####[facility] [address] [place], [address] WBC (Bld) [#/Vol] 11.7 10*3/uL High 4.4-11.0 [facility] Comment on above: Performed By: #### L 100.0100, L500.2500 ####[facility] [address] [place], [address] Basic Metabolic Profile (BMP )on 09-12-2024 BUN/CRE 24.0 RATIO High 10-20 [facility] Comment on above: Performed By: #### L 100.0100, L500.2500 ####[facility] [address] [place], [address] Calcium [Mass/Vol] 9.0 mg/dL Normal 7.6-11.0 [facility] Comment on above: Performed By: #### L 100.0100, L500.2500 ####[facility] [address] [place], [address] Chloride [Moles/Vol] 105 mmol/L Normal 98-108 [facility] Comment on above: Performed By: #### L 100.0100, L500.2500 ####[facility] [address] [place], [address] CO2 [Moles/Vol] 17.3 mmol/L Low 21.0-32.0 [facility] Comment on above: Performed By: #### L 100.0100, L500.2500 ####[facility] [address] [place], [address] Creatinine [Mass/Vol] 0.86 mg/dL Normal 0.70-1.20 [facility] Comment on above: Performed By: #### L 100.0100, L500.2500 ####[facility] [address] [place], [address] ECRCL 84.22 ml/min Normal 50-250 [facility] Comment on above: Performed By: #### L 100.0100, L500.2500 ####[facility] [address] [place], [address] GAP 11 Normal 5-15 [facility] Comment on above: Performed By: #### L 100.0100, L500.2500 ####[facility] [address] [place], [address] GFR/1.73 sq M.predicted among non-blacks MDRD (S/P/Bld) [Vol rate/Area] 81 mL/min/{1.73_m2} Normal >60 [facility] Comment on above: Result Comment: mL/m in/1.73m2 CKD-EPI Creatinine Equation (2020) Performed By: #### L 100.0100, L500.2500 ####[facility] [address] [place], [address] Glucose [Mass/Vol] 213 mg/dL High 70-99 [facility] Comment on above: Performed By: #### L 100.0100, L500.2500 ####[facility] [address] [place], [address] Potassium [Moles/Vol] 4.7 mmol/L Normal 3.3-5.1 [facility] Comment on above: Result Comment: Hemo lysis present, Results??could be affected.?? Performed By: #### L 100.0100, L500.2500 ####[facility] [address] [place], [address] Sodium [Moles/Vol] 134 mmol/L Normal 133-145 [facility] Comment on above: Performed By: #### L 100.0100, L500.2500 ####[facility] [address] [place], [address] Urea nitrogen [Mass/Vol] 21 mg/dL High 4-19 [facility] Comment on above: Performed By: #### L 100.0100, L500.2500 ####[facility] [address] [place], [address] Bedside Glucoseon 09-12-2024 FINGERSTICK GLU 271 mg/dL High [address] [place] [address] Comment on above: Result Comment: TALIA GEMENT OF PATIENT CARE PER NURSING PROTOCOL Performed By: #### L 501.080 ####[facility] [address] [place], [address] FINGERSTICK GLU 352 mg/dL High [address] [place] [address] Comment on above: Result Comment: TALIA GEMENT OF PATIENT CARE PER NURSING PROTOCOL Performed By: #### L 501.080 ####[facility] [address] [place], [address] FINGERSTICK GLU 195 mg/dL High [address] [place] [address] Comment on above: Result Comment: TALIA GEMENT OF PATIENT CARE PER NURSING PROTOCOL Performed By: #### L 501.080 ####[facility] [address] [place], [address] FINGERSTICK GLU 210 mg/dL High [address] [place] [address] Comment on above: Result Comment: TALIA GEMENT OF PATIENT CARE PER NURSING PROTOCOL Performed By: #### L 501.080 ####[facility] [address] [place], [address] FINGERSTICK GLU 331 mg/dL High [address] [place] [address] Comment on above: Result Comment: TALIA GEMENT OF PATIENT CARE PER NURSING PROTOCOL Performed By: #### L 501.080 ####[facility] [address] [place], [address] Bilirubin Test strip Ql (U)O rdered By: Nichelle Mcneil on 09-12-2024 Bilirubin Ql (U) Negative Negative [facility] CBC W/Diff, Automatedon 09-02 PLT EST ADEQUATE Normal ADEQ [facility] Comment on above: Performed By: #### L 100.0100, L500.2500 ####[facility] [address] [place], [address] CNCOon 09-12-2024 CNCO Letter Text Normal [facility] Clarity (U)Ordered By: Juan Mcneil on 09-12-2024 Urine clarity Clear Clear [facility] Color (U)Ordered By: Nichelle Mcneil on 09-12-2024 Urine color determination Straw Yellow [facility] Consultation - Infectious Dx on 09-12-2024 Consultation - Infectious Dx Normal [facility] Epithelial cells.squamous LM Ql (Urine sed)Ordered By: Nichelle Mcneil on 09-12-2024 Squamous epithelial cells detection in urine sediment by light microscopy 0-5 SEEN /hpf 5-10 [facility] Glucose Ql (U)Ordered By: Olamide Mcneil on 09-12-2024 Urine glucose detection 1000 mg/dl High Normal [facility] Ketones Test strip Ql (U)Ord ered By: Nichelle Mcneil on 09-12-2024 Ketones Ql (U) Negative Negative [facility] Mucus LM Ql (Urine sed)Order ed By: Nichelle Mcneil on 09-12-2024 Mucus Ql (Urine sed) 0 SEEN /hpf [facility] Nitrite Test strip Ql (U)Ord ered By: Nichelle Mcneil on 09-12-2024 Nitrite Ql (U) Negative Negative [facility] Platelet estimateOrdered By: Brenda Posadas on 09-12-2024 Platelets LM Ql (Bld) ADEQUATE ADEQ [facility] Platelets LM Ql (Bld)Ordered By: Brenda Posadas on 09-12-2024 Platelet estimate ADEQUATE ADEQ [facility] Protein Test strip Ql (U)Ord ered By: Nichelle Mcneil on 09-12-2024 Protein Ql (U) 15 mg/dl High Negative [facility] Urine protein assay by test strip, semi-quantitative 15 mg/dl High Negative [facility] Specific gravity (U) [Rel de nsity]Ordered By: Nichelle Mcneil on 09-12-2024 Urine specific gravity measurement 1.010 1.002-1.03 0 [facility] Squamous epithelial cells de tection in urine sediment by light microscopyOrdered By: Nichelle Mcneli on 09-12-2024 Epithelial cells.squamous LM Ql (Urine sed) 0-5 SEEN /hpf 5-10 [facility] Urinalysis, Completeon 09-12 EPI,SQUAMOUS 0-5 SEEN Normal 5-10 [facility] Comment on above: Order Comment: CLEAN CATCH Performed By: #### L 400.0001, M100.2200 ####[facility] [address] [place], [address] YEAST 1+ /hpf Normal None Seen [facility] Comment on above: Order Comment: CLEAN CATCH Performed By: #### L 400.0001, M100.2200 ####[facility] [address] [place], [address] BACTERIA 0 SEEN Normal None Seen [facility] Comment on above: Order Comment: CLEAN CATCH Performed By: #### L 400.0001, M100.2200 ####[facility] [address] [place], [address] Mucus Ql (Urine sed) 0 SEEN Normal [facility] Comment on above: Order Comment: CLEAN CATCH Performed By: #### L 400.0001, M100.2200 ####[facility] [address] [place], [address] RBC 0 SEEN Normal 0-5 [facility] Comment on above: Order Comment: CLEAN CATCH Performed By: #### L 400.0001, M100.2200 ####[facility] [address] [place], [address] WBC 0 SEEN Normal 0-5 [facility] Comment on above: Order Comment: CLEAN CATCH Performed By: #### L 400.0001, M100.2200 ####[facility] [address] [place], [address] Urine clarityOrdered By: Travis Mcneil on 09-12-2024 Clarity (U) Clear Clear [facility] Urine color determinationOrd ered By: Nichelle Mcneil on 09-12-2024 Color (U) Straw Yellow [facility] Urine cultureOrdered By: Travis Mcneil on 09-12-2024 Bacteria identified Cx Nom (U) Yeast, not Ashley albicans Abnormal [facility] Urine culture Yeast, not Ashley albicans Abnormal [facility] Urine glucose detectionOrder ed By: Nichelle Mcneil on 09-12-2024 Glucose Ql (U) 1000 mg/dl High Normal [facility] Urine leukocyte esterase det ection by dipstickOrdered By: Nichelle Mcneil on 09-12-2024 Leukocyte esterase Test strip Ql (U) Negative Negative [facility] Urine pHOrdered By: Nichelle pacheco on 09-12-2024 pH (U) 6.0 [pH] 5.0 - 8.0 [facility] Urine sediment bacteria coun t by microscopy (number/high power field)Ordered By: Nichelle Mcneil on 09-12-2024 Bacteria LM.HPF (Urine sed) [#/Area] 0 /[HPF] None Seen [facility] Urine sediment yeast count b y microscopy (number/high powered field)Ordered By: Nichelle Mcneil on 09-12-2024 Yeast LM.HPF (Urine sed) [#/Area] 1 /[HPF] None Seen [facility] Urine specific gravity measu rementOrdered By: Nichelle Mcneil on 09-12-2024 Specific gravity (U) [Rel density] 1.010 1.002-1.03 0 [facility] Urine total bilirubin detect ion by test stripOrdered By: Nichelle Mcneil on 09-12-2024 Urine total bilirubin detection by test strip Negative Negative [facility] Urine urobilinogen measureme ntOrdered By: Nichelle Mcneil on 09-12-2024 Urobilinogen Ql (U) Normal mg/dl Normal [facility] Urobilinogen Ql (U)Ordered B y: Nichelle Mcneil on 09-12-2024 Urine urobilinogen measurement Normal mg/dl Normal [facility] White blood cell countOrdere d By: Nichelle Mcneil on 09-12-2024 White blood cell count 0 SEEN /hpf 0-5 [facility] White blood cell count 0 SEEN /hpf [facility] Yeast LM.HPF (Urine sed) [#/ Area]Ordered By: Nichelle Mcneil on 09-12-2024 Urine sediment yeast count by microscopy (number/high powered field) 1+ /hpf None Seen [facility] pH (U)Ordered By: Nichelle butler on 09-12-2024 Urine pH 6.0 5.0 - 8.0 [facility] Abdomen Single View (Portabl e)on 09-11-2024 Abdomen Single View (Portable) Normal [facility] Basic Metabolic Profile (BMP )on 09-11-2024 BUN/CRE 21.7 RATIO High 10- [facility] Comment on above: Performed By: #### L 500.2500, L100.0100 ####[facility] [address] [place], [address] Calcium [Mass/Vol] 9.0 mg/dL Normal 7.6-11.0 [facility] Comment on above: Performed By: #### L 500.2500, L100.0100 ####[facility] [address] [place], [address] Chloride [Moles/Vol] 104 mmol/L Normal 98-108 [facility] Comment on above: Performed By: #### L 500.2500, L100.0100 ####[facility] [address] [place], [address] CO2 [Moles/Vol] 21.7 mmol/L Normal 21.0-32.0 [facility] Comment on above: Performed By: #### L 500.2500, L100.0100 ####[facility] [address] [place], [address] Creatinine [Mass/Vol] 0.84 mg/dL Normal 0.70-1.20 [facility] Comment on above: Performed By: #### L 500.2500, L100.0100 ####[facility] [address] [place], [address] ECRCL 85.20 ml/min Normal 50-250 [facility] Comment on above: Performed By: #### L 500.2500, L100.0100 ####[facility] [address] [place], [address] GAP 11 Normal 5-15 [facility] Comment on above: Performed By: #### L 500.2500, L100.0100 ####[facility] [address] [place], [address] GFR/1.73 sq M.predicted among non-blacks MDRD (S/P/Bld) [Vol rate/Area] 84 mL/min/{1.73_m2} Normal >60 [facility] Comment on above: Result Comment: mL/m in/1.73m2 CKD-EPI Creatinine Equation (2020) Performed By: #### L 500.2500, L100.0100 ####[facility] [address] [place], [address] Glucose [Mass/Vol] 171 mg/dL High 70-99 [facility] Comment on above: Performed By: #### L 500.2500, L100.0100 ####[facility] [address] [place], [address] Potassium [Moles/Vol] 4.0 mmol/L Normal 3.3-5.1 [facility] Comment on above: Performed By: #### L 500.2500, L100.0100 ####[facility] [address] [place], [address] Sodium [Moles/Vol] 136 mmol/L Normal 133-145 [facility] Comment on above: Performed By: #### L 500.2500, L100.0100 ####[facility] [address] [place], [address] Urea nitrogen [Mass/Vol] 18 mg/dL Normal 4-19 [facility] Comment on above: Performed By: #### L 500.2500, L100.0100 ####[facility] [address] [place], [address] Bedside Glucoseon 09-11-2024 FINGERSTICK GLU 114 mg/dL High 74-106 [facility] Comment on above: Result Comment: TALIA GEMENT OF PATIENT CARE PER NURSING PROTOCOL Performed By: #### L 501.080 ####[facility] [address] [place], [address] FINGERSTICK GLU 338 mg/dL High 74-106 [facility] Comment on above: Result Comment: TALIA GEMENT OF PATIENT CARE PER NURSING PROTOCOL Performed By: #### L 501.080 ####[facility] [address] [place], [address] FINGERSTICK GLU 142 mg/dL High 74-106 [facility] Comment on above: Result Comment: TALIA GEMENT OF PATIENT CARE PER NURSING PROTOCOL Performed By: #### L 501.080 ####[facility] [address] [place], [address] CBC W/Diff, Automatedon 09-02 Absolute Lymph 2.26 X10 3/uL Normal 0.83-4.51 [facility] Comment on above: Performed By: #### L 500.2500, L100.0100 ####[facility] [address] [place], [address] Absolute Neut 6.8 X10 3/uL Normal 2.0-7.7 [facility] Comment on above: Performed By: #### L 500.2500, L100.0100 ####[facility] [address] [place], [address] Basophils/100 WBC (Bld) 0.6 % Normal 0-1 [facility] Comment on above: Performed By: #### L 500.2500, L100.0100 ####[facility] [address] [place], [address] Eosinophils/100 WBC (Bld) 1.9 % Normal 0-5 [facility] Comment on above: Performed By: #### L 500.2500, L100.0100 ####[facility] [address] [place], [address] Erythrocyte distribution width (RBC) [Ratio] 14.0 % Normal 11.6-14.6 [facility] Comment on above: Performed By: #### L 500.2500, L100.0100 ####[facility] [address] [place], [address] Hematocrit (Bld) [Volume fraction] 33.1 % Low 37-47 [facility] Comment on above: Performed By: #### L 500.2500, L100.0100 ####[facility] [address] [place], [address] Hemoglobin (Bld) [Mass/Vol] 11.0 g/dL Low 12.0-15.0 [facility] Comment on above: Performed By: #### L 500.2500, L100.0100 ####[facility] [address] [place], [address] IG% 0.600 Normal 0.0-0.9 [facility] Comment on above: Result Comment: IG% - Immature Granulocytes (promyelocytes, myelocytes andmetamyelocytes) > 1% indicates that a LEFT SHIFT is Present. Performed By: #### L 500.2500, L100.0100 ####[facility] [address] [place], [address] Lymphocytes/100 WBC (Bld) 22.6 % Normal 19-41 [facility] Comment on above: Performed By: #### L 500.2500, L100.0100 ####[facility] [address] [place], [address] MCH (RBC) [Entitic mass] 28.1 pg Normal 27.0-32.0 [facility] Comment on above: Performed By: #### L 500.2500, L100.0100 ####[facility] [address] [place], [address] MCHC (RBC) [Mass/Vol] 33.2 g/dL Normal 32-36 [facility] Comment on above: Performed By: #### L 500.2500, L100.0100 ####[facility] [address] [place], [address] MCV (RBC) [Entitic vol] 84.4 fL Normal 81-99 [facility] Comment on above: Performed By: #### L 500.2500, L100.0100 ####[facility] [address] [place], [address] Monocytes/100 WBC (Bld) 6.3 % Normal 0-10 [facility] Comment on above: Performed By: #### L 500.2500, L100.0100 ####[facility] [address] [place], [address] Neutrophils/100 WBC (Bld) 68.0 % Normal 47-70 [facility] Comment on above: Performed By: #### L 500.2500, L100.0100 ####[facility] [address] [place], [address] Nucleated RBC (Bld) [#/Vol] 0 10*3/uL Normal 0-5 [facility] Comment on above: Performed By: #### L 500.2500, L100.0100 ####[facility] [address] [place], [address] Platelet mean volume (Bld) [Entitic vol] 9.9 fL Normal 6.2-12.0 [facility] Comment on above: Performed By: #### L 500.2500, L100.0100 ####[facility] [address] [place], [address] Platelets (Bld) [#/Vol] 252 10*3/uL Normal 150-450 [facility] Comment on above: Performed By: #### L 500.2500, L100.0100 ####[facility] [address] [place], [address] RBC (Bld) [#/Vol] 3.92 10*6/uL Low 4.2-5.4 [facility] Comment on above: Performed By: #### L 500.2500, L100.0100 ####[facility] [address] [place], [address] RDW SD 43.2 fl Normal 35.1-43.9 [facility] Comment on above: Performed By: #### L 500.2500, L100.0100 ####[facility] [address] [place], [address] WBC (Bld) [#/Vol] 10.0 10*3/uL Normal 4.4-11.0 [facility] Comment on above: Performed By: #### L 500.2500, L100.0100 ####[facility] [address] [place], [address] Urine Cultureon 09-11-2024 URC Below infection leve l. Presumptive E. coli Corbin Count <1000 Normal [facility] Comment on above: Performed By: #### M 100.2200 ####[facility] [address] [place], [address] Vitamin D 1,25-Dihydroxyon 0 09-11-2024 VIT D 1,25 DIHY 29.9 pg/mL Normal 24.8-81.5 [facility] Comment on above: Result Comment: Perf ormed at: [facility] - [facility] [address] [id number] Director: Karlee Oro MD, Phone: [phone] Performed By: #### L 3300.0960, L501.9520, L506.1001, L100.0100, L500.4050, L509.1000 ####[facility] [address] [place], [address] Basic Metabolic Profile (BMP )on 09-10-2024 BUN/CRE 18.2 RATIO Normal 10-20 [facility] Comment on above: Performed By: #### L 100.0100, L500.2500 ####[facility] [address] [place], [address] Calcium [Mass/Vol] 8.7 mg/dL Normal 7.6-11.0 [facility] Comment on above: Performed By: #### L 100.0100, L500.2500 ####[facility] [address] [place], [address] Chloride [Moles/Vol] 105 mmol/L Normal 98-108 [facility] Comment on above: Performed By: #### L 100.0100, L500.2500 ####[facility] [address] [place], [address] CO2 [Moles/Vol] 23.5 mmol/L Normal 21.0-32.0 [facility] Comment on above: Performed By: #### L 100.0100, L500.2500 ####[facility] [address] [place], [address] Creatinine [Mass/Vol] 1.00 mg/dL Normal 0.70-1.20 [facility] Comment on above: Performed By: #### L 100.0100, L500.2500 ####[facility] [address] [place], [address] ECRCL 71.49 ml/min Normal 50-250 [facility] Comment on above: Performed By: #### L 100.0100, L500.2500 ####[facility] [address] [place], [address] GAP 8 Normal 5-15 [facility] Comment on above: Performed By: #### L 100.0100, L500.2500 ####[facility] [address] [place], [address] GFR/1.73 sq M.predicted among non-blacks MDRD (S/P/Bld) [Vol rate/Area] 68 mL/min/{1.73_m2} Normal >60 [facility] Comment on above: Result Comment: mL/m in/1.73m2 CKD-EPI Creatinine Equation (2020) Performed By: #### L 100.0100, L500.2500 ####[facility] [address] [place], [address] Glucose [Mass/Vol] 251 mg/dL High 70-99 [facility] Comment on above: Performed By: #### L 100.0100, L500.2500 ####[facility] [address] [place], [address] Potassium [Moles/Vol] 4.4 mmol/L Normal 3.3-5.1 [facility] Comment on above: Performed By: #### L 100.0100, L500.2500 ####[facility] [address] [place], [address] Sodium [Moles/Vol] 136 mmol/L Normal 133-145 [facility] Comment on above: Performed By: #### L 100.0100, L500.2500 ####[facility] [address] [place], [address] Urea nitrogen [Mass/Vol] 18 mg/dL Normal 4-19 [facility] Comment on above: Performed By: #### L 100.0100, L500.2500 ####[facility] [address] [place], [address] Bedside Glucoseon 09-10-2024 FINGERSTICK GLU 241 mg/dL High 74-106 [facility] Comment on above: Result Comment: TALIA GEMENT OF PATIENT CARE PER NURSING PROTOCOL Performed By: #### L 501.080 ####[facility] [address] [place], [address] FINGERSTICK GLU 149 mg/dL High 74-106 [facility] Comment on above: Result Comment: TALIA GEMENT OF PATIENT CARE PER NURSING PROTOCOL Performed By: #### L 501.080 ####[facility] [address] [place], [address] FINGERSTICK GLU 250 mg/dL High 74-106 [facility] Comment on above: Result Comment: TALIA GEMENT OF PATIENT CARE PER NURSING PROTOCOL Performed By: #### L 501.080 ####[facility] [address] [place], [address] FINGERSTICK GLU 234 mg/dL High -[address] [place] [address] Comment on above: Result Comment: TALIA GEMENT OF PATIENT CARE PER NURSING PROTOCOL Performed By: #### L 501.080 ####[facility] [address] [place], [address] CBC W/Diff, Automatedon 04-0 9-2024 Absolute Lymph 1.84 X10 3/uL Normal 0.83-4.51 [facility] Comment on above: Performed By: #### L 100.0100, L500.2500 ####[facility] [address] [place], [address] Absolute Neut 7.2 X10 3/uL Normal 2.0-7.7 [facility] Comment on above: Performed By: #### L 100.0100, L500.2500 ####[facility] [address] [place], [address] Basophils/100 WBC (Bld) 0.6 % Normal 0-1 [facility] Comment on above: Performed By: #### L 100.0100, L500.2500 ####[facility] [address] [place], [address] Eosinophils/100 WBC (Bld) 1.6 % Normal 0-5 [facility] Comment on above: Performed By: #### L 100.0100, L500.2500 ####[facility] [address] [place], [address] Erythrocyte distribution width (RBC) [Ratio] 14.1 % Normal 11.6-14.6 [facility] Comment on above: Performed By: #### L 100.0100, L500.2500 ####[facility] [address] [place], [address] Hematocrit (Bld) [Volume fraction] 33.4 % Low 37-47 [facility] Comment on above: Performed By: #### L 100.0100, L500.2500 ####[facility] [address] [place], [address] Hemoglobin (Bld) [Mass/Vol] 11.0 g/dL Low 12.0-15.0 [facility] Comment on above: Performed By: #### L 100.0100, L500.2500 ####[facility] [address] [place], [address] IG% 0.500 Normal 0.0-0.9 [facility] Comment on above: Result Comment: IG% - Immature Granulocytes (promyelocytes, myelocytes andmetamyelocytes) > 1% indicates that a LEFT SHIFT is Present. Performed By: #### L 100.0100, L500.2500 ####[facility] [address] [place], [address] Lymphocytes/100 WBC (Bld) 18.5 % Low 19-41 [facility] Comment on above: Performed By: #### L 100.0100, L500.2500 ####[facility] [address] [place], [address] MCH (RBC) [Entitic mass] 27.9 pg Normal 27.0-32.0 [facility] Comment on above: Performed By: #### L 100.0100, L500.2500 ####[facility] [address] [place], [address] MCHC (RBC) [Mass/Vol] 32.9 g/dL Normal 32-36 [facility] Comment on above: Performed By: #### L 100.0100, L500.2500 ####[facility] [address] [place], [address] MCV (RBC) [Entitic vol] 84.8 fL Normal 81-99 [facility] Comment on above: Performed By: #### L 100.0100, L500.2500 ####[facility] [address] [place], [address] Monocytes/100 WBC (Bld) 6.0 % Normal 0-10 [facility] Comment on above: Performed By: #### L 100.0100, L500.2500 ####[facility] [address] [place], [address] Neutrophils/100 WBC (Bld) 72.8 % High 47-70 [facility] Comment on above: Performed By: #### L 100.0100, L500.2500 ####[facility] [address] [place], [address] Nucleated RBC (Bld) [#/Vol] 0 10*3/uL Normal 0-5 [facility] Comment on above: Performed By: #### L 100.0100, L500.2500 ####[facility] [address] [place], [address] Platelet mean volume (Bld) [Entitic vol] 9.9 fL Normal 6.2-12.0 [facility] Comment on above: Performed By: #### L 100.0100, L500.2500 ####[facility] [address] [place], [address] Platelets (Bld) [#/Vol] 245 10*3/uL Normal 150-450 [facility] Comment on above: Performed By: #### L 100.0100, L500.2500 ####[facility] [address] [place], [address] RBC (Bld) [#/Vol] 3.94 10*6/uL Low 4.2-5.4 [facility] Comment on above: Performed By: #### L 100.0100, L500.2500 ####[facility] [address] [place], [address] RDW SD 43.5 fl Normal 35.1-43.9 [facility] Comment on above: Performed By: #### L 100.0100, L500.2500 ####[facility] [address] [place], [address] WBC (Bld) [#/Vol] 10.0 10*3/uL Normal 4.4-11.0 [facility] Comment on above: Performed By: #### L 100.0100, L500.2500 ####[facility] [address] [place], [address] Basic Metabolic Profile (BMP )on 09-09-2024 BUN/CRE 14.8 RATIO Normal 10-20 [facility] Comment on above: Performed By: #### L 500.2500, L100.0100, L501.5200 ####[facility] [address] [place], [address] Calcium [Mass/Vol] 8.5 mg/dL Normal 7.6-11.0 [facility] Comment on above: Performed By: #### L 500.2500, L100.0100, L501.5200 ####[facility] [address] [place], [address] Chloride [Moles/Vol] 104 mmol/L Normal 98-108 [facility] Comment on above: Performed By: #### L 500.2500, L100.0100, L501.5200 ####[facility] [address] [place], [address] CO2 [Moles/Vol] 16.0 mmol/L Low 21.0-32.0 [facility] Comment on above: Performed By: #### L 500.2500, L100.0100, L501.5200 ####[facility] [address] [place], [address] Creatinine [Mass/Vol] 0.99 mg/dL Normal 0.70-1.20 [facility] Comment on above: Performed By: #### L 500.2500, L100.0100, L501.5200 ####[facility] [address] [place], [address] ECRCL 72.12 ml/min Normal 50-250 [facility] Comment on above: Performed By: #### L 500.2500, L100.0100, L501.5200 ####[facility] [address] [place], [address] GAP 13 Normal 5-15 [facility] Comment on above: Performed By: #### L 500.2500, L100.0100, L501.5200 ####[facility] [address] [place], [address] GFR/1.73 sq M.predicted among non-blacks MDRD (S/P/Bld) [Vol rate/Area] 68 mL/min/{1.73_m2} Normal >60 [facility] Comment on above: Result Comment: mL/m in/1.73m2 CKD-EPI Creatinine Equation (2020) Performed By: #### L 500.2500, L100.0100, L501.5200 ####[facility] [address] [place], [address] Glucose [Mass/Vol] 156 mg/dL High 70-99 [facility] Comment on above: Performed By: #### L 500.2500, L100.0100, L501.5200 ####[facility] [address] [place], [address] Potassium [Moles/Vol] 3.7 mmol/L Normal 3.3-5.1 [facility] Comment on above: Performed By: #### L 500.2500, L100.0100, L501.5200 ####[facility] [address] [place], [address] Sodium [Moles/Vol] 132 mmol/L Low 133-145 [facility] Comment on above: Performed By: #### L 500.2500, L100.0100, L501.5200 ####[facility] [address] [place], [address] Urea nitrogen [Mass/Vol] 15 mg/dL Normal 4-19 [facility] Comment on above: Performed By: #### L 500.2500, L100.0100, L501.5200 ####[facility] [address] [place], [address] Bedside Glucoseon 09-09-2024 FINGERSTICK GLU 193 mg/dL High 74-106 [facility] Comment on above: Result Comment: TALIA GEMENT OF PATIENT CARE PER NURSING PROTOCOL Performed By: #### L 501.080 ####[facility] [address] [place], [address] FINGERSTICK GLU 227 mg/dL High 74-106 [facility] Comment on above: Result Comment: TALIA GEMENT OF PATIENT CARE PER NURSING PROTOCOL Performed By: #### L 501.080 ####[facility] [address] [place], [address] FINGERSTICK GLU 228 mg/dL High 74-106 [facility] Comment on above: Result Comment: TALIA GEMENT OF PATIENT CARE PER NURSING PROTOCOL Performed By: #### L 501.080 ####[facility] [address] [place], [address] FINGERSTICK GLU 194 mg/dL High 74-106 [facility] Comment on above: Result Comment: TALIA GEMENT OF PATIENT CARE PER NURSING PROTOCOL Performed By: #### L 501.080 ####[facility] [address] [place], [address] CBC W/Diff, Automatedon 04-0 8-2024 Absolute Lymph 2.64 X10 3/uL Normal 0.83-4.51 [facility] Comment on above: Performed By: #### L 500.2500, L100.0100, L501.5200 ####[facility] [address] [place], [address] Absolute Neut 7.4 X10 3/uL Normal 2.0-7.7 [facility] Comment on above: Performed By: #### L 500.2500, L100.0100, L501.5200 ####[facility] [address] [place], [address] Basophils/100 WBC (Bld) 0.7 % Normal 0-1 [facility] Comment on above: Performed By: #### L 500.2500, L100.0100, L501.5200 ####[facility] [address] [place], [address] Eosinophils/100 WBC (Bld) 2.3 % Normal 0-5 [facility] Comment on above: Performed By: #### L 500.2500, L100.0100, L501.5200 ####[facility] [address] [place], [address] Erythrocyte distribution width (RBC) [Ratio] 14.0 % Normal 11.6-14.6 [facility] Comment on above: Performed By: #### L 500.2500, L100.0100, L501.5200 ####[facility] [address] [place], [address] Hematocrit (Bld) [Volume fraction] 32.6 % Low 37-47 [facility] Comment on above: Performed By: #### L 500.2500, L100.0100, L501.5200 ####[facility] [address] [place], [address] Hemoglobin (Bld) [Mass/Vol] 10.9 g/dL Low 12.0-15.0 [facility] Comment on above: Performed By: #### L 500.2500, L100.0100, L501.5200 ####[facility] [address] [place], [address] IG% 0.500 Normal 0.0-0.9 [facility] Comment on above: Result Comment: IG% - Immature Granulocytes (promyelocytes, myelocytes andmetamyelocytes) > 1% indicates that a LEFT SHIFT is Present. Performed By: #### L 500.2500, L100.0100, L501.5200 ####[facility] [address] [place], [address] Lymphocytes/100 WBC (Bld) 23.9 % Normal 19-41 [facility] Comment on above: Performed By: #### L 500.2500, L100.0100, L501.5200 ####[facility] [address] [place], [address] MCH (RBC) [Entitic mass] 28.5 pg Normal 27.0-32.0 [facility] Comment on above: Performed By: #### L 500.2500, L100.0100, L501.5200 ####[facility] [address] [place], [address] MCHC (RBC) [Mass/Vol] 33.4 g/dL Normal 32-36 [facility] Comment on above: Performed By: #### L 500.2500, L100.0100, L501.5200 ####[facility] [address] [place], [address] MCV (RBC) [Entitic vol] 85.1 fL Normal 81-99 [facility] Comment on above: Performed By: #### L 500.2500, L100.0100, L501.5200 ####[facility] [address] [place], [address] Monocytes/100 WBC (Bld) 5.5 % Normal 0-10 [facility] Comment on above: Performed By: #### L 500.2500, L100.0100, L501.5200 ####[facility] [address] [place], [address] Neutrophils/100 WBC (Bld) 67.1 % Normal 47-70 [facility] Comment on above: Performed By: #### L 500.2500, L100.0100, L501.5200 ####[facility] [address] [place], [address] Nucleated RBC (Bld) [#/Vol] 0 10*3/uL Normal 0-5 [facility] Comment on above: Performed By: #### L 500.2500, L100.0100, L501.5200 ####[facility] [address] [place], [address] Platelet mean volume (Bld) [Entitic vol] 9.6 fL Normal 6.2-12.0 [facility] Comment on above: Performed By: #### L 500.2500, L100.0100, L501.5200 ####[facility] [address] [place], [address] Platelets (Bld) [#/Vol] 247 10*3/uL Normal 150-450 [facility] Comment on above: Performed By: #### L 500.2500, L100.0100, L501.5200 ####[facility] [address] [place], [address] RBC (Bld) [#/Vol] 3.83 10*6/uL Low 4.2-5.4 [facility] Comment on above: Performed By: #### L 500.2500, L100.0100, L501.5200 ####[facility] [address] [place], [address] RDW SD 43.3 fl Normal 35.1-43.9 [facility] Comment on above: Performed By: #### L 500.2500, L100.0100, L501.5200 ####[facility] [address] [place], [address] WBC (Bld) [#/Vol] 11.0 10*3/uL Normal 4.4-11.0 [facility] Comment on above: Performed By: #### L 500.2500, L100.0100, L501.5200 ####[facility] [address] [place], [address] Magnesiumon 09-09-2024 Magnesium [Mass/Vol] 2.9 mg/dL High 1.5-2.2 [facility] Comment on above: Performed By: #### L 500.2500, L100.0100, L501.5200 ####[facility] [address] [place], [address] Magnesium (Unsp spec) [Mass/ Vol]Ordered By: Brenda Posadas on 09-09-2024 Magnesium measurement (mass/volume) 2.9 mg/dL High 1.5-2.2 [facility] Magnesium measurement (mass/ volume)Ordered By: Brenda Posadas on 09-09-2024 Magnesium (Unsp spec) [Mass/Vol] 2.9 mg/dL High 1.5-2.2 [facility] Phosphoruson 09-09-2024 Phosphate [Mass/Vol] 3.2 mg/dL Normal 2.7-4.5 [facility] Comment on above: Performed By: #### L 501.2300 ####[facility] [address] [place], [address] Serum phosphorus measurement Ordered By: Brenda Posadas on 09-09-2024 Serum phosphorus measurement 3.2 mg/dL 2.7-4.5 [facility] Urinalysis, Completeon 09-09 BACTERIA 1+ /hpf Normal None Seen [facility] Comment on above: Order Comment: CLEAN CATCH Performed By: #### L 400.0001 ####[facility] [address] [place], [address] WBC 0-5 SEEN Normal 0-5 [facility] Comment on above: Order Comment: CLEAN CATCH Performed By: #### L 400.0001 ####[facility] [address] [place], [address] EPI,SQUAMOUS 0 SEEN Normal 5-10 [facility] Comment on above: Order Comment: CLEAN CATCH Performed By: #### L 400.0001 ####[facility] [address] [place], [address] Mucus Ql (Urine sed) 0 SEEN Normal [facility] Comment on above: Order Comment: CLEAN CATCH Performed By: #### L 400.0001 ####[facility] [address] [place], [address] RBC 0 SEEN Normal 0-5 [facility] Comment on above: Order Comment: CLEAN CATCH Performed By: #### L 400.0001 ####[facility] [address] [place], [address] Urine cultureOrdered By: [place] Posadas on 09-09-2024 Bacteria identified Cx Nom (U) Presumptive E. coli Abnormal [facility] Urine culture Presumptive E. coli Abnormal [facility] 1,25-dihydroxyvitamin D3 [Ma ss/Vol]Ordered By: Rosaura Rosa Maria on 09-08-2024 Serum or plasma calcitriol measurement (mass/volume) 29.9 pg/mL 24.8-81.5 [facility] ALP [Catalytic activity/Vol] Ordered By: [facility] Rosa Maria on 09-08-2024 Serum or plasma alkaline phosphatase measurement 105 U/L High 35-104 [facility] ALT [Catalytic activity/Vol] Ordered By: Rosaura Rosa Maria on 09-08-2024 Serum or plasma alanine aminotransferase (ALT) measurement 14 U/L <35 [facility] Albumin [Mass/Vol]Ordered By : [facility] on 09-08-2024 Serum or plasma albumin measurement (mass/volume) 3.1 g/dL Low 3.5-5.0 [facility] Albumin/Globulin [Mass ratio ]Ordered By: [facility] Rosa Maria on 09-08-2024 Serum or plasma albumin/globulin mass ratio 1.2 RATIO 0.9-2.4 [facility] Basic Metabolic Profile (BMP )on 09-08-2024 BUN/CRE 17.5 RATIO Normal 10-20 [facility] Comment on above: Performed By: #### L 500.2500 ####[facility] [address] [place], [address] Calcium [Mass/Vol] 9.2 mg/dL Normal 7.6-11.0 [facility] Comment on above: Performed By: #### L 500.2500 ####[facility] [address] [place], [address] Chloride [Moles/Vol] 100 mmol/L Normal 98-108 [facility] Comment on above: Performed By: #### L 500.2500 ####[facility] [address] [place], [address] CO2 [Moles/Vol] 21.1 mmol/L Normal 21.0-32.0 [facility] Comment on above: Performed By: #### L 500.2500 ####[facility] [address] [place], [address] Creatinine [Mass/Vol] 0.89 mg/dL Normal 0.70-1.20 [facility] Comment on above: Performed By: #### L 500.2500 ####[facility] [address] [place], [address] ECRCL 77.55 ml/min Normal 50-250 [facility] Comment on above: Performed By: #### L 500.2500 ####[facility] [address] [place], [address] GAP 13 Normal 5-15 [facility] Comment on above: Performed By: #### L 500.2500 ####[facility] [address] [place], [address] GFR/1.73 sq M.predicted among non-blacks MDRD (S/P/Bld) [Vol rate/Area] 78 mL/min/{1.73_m2} Normal >60 [facility] Comment on above: Result Comment: mL/m in/1.73m2 CKD-EPI Creatinine Equation (2020) Performed By: #### L 500.2500 ####[facility] [address] [place], [address] Glucose [Mass/Vol] 266 mg/dL High 70-99 [facility] Comment on above: Performed By: #### L 500.2500 ####[facility] [address] [place], [address] Potassium [Moles/Vol] 3.2 mmol/L Low 3.3-5.1 [facility] Comment on above: Performed By: #### L 500.2500 ####[facility] [address] [place], [address] Sodium [Moles/Vol] 134 mmol/L Normal 133-145 [facility] Comment on above: Performed By: #### L 500.2500 ####[facility] [address] [place], [address] Urea nitrogen [Mass/Vol] 16 mg/dL Normal 4-19 [facility] Comment on above: Performed By: #### L 500.2500 ####[facility] [address] [place], [address] Bedside Glucoseon 09-08-2024 FINGERSTICK GLU 245 mg/dL High 74-106 [facility] Comment on above: Result Comment: TALIA GEMENT OF PATIENT CARE PER NURSING PROTOCOL Performed By: #### L 501.080 ####[facility] [address] [place], [address] FINGERSTICK GLU 245 mg/dL High 74-106 [facility] Comment on above: Result Comment: TALIA GEMENT OF PATIENT CARE PER NURSING PROTOCOL Performed By: #### L 501.080 ####[facility] [address] [place], [address] FINGERSTICK GLU 418 mg/dL High 74-106 [facility] Comment on above: Result Comment: TALIA GEMENT OF PATIENT CARE PER NURSING PROTOCOL Performed By: #### L 501.080 ####[facility] [address] [place], [address] FINGERSTICK GLU 211 mg/dL High 74-106 [facility] Comment on above: Result Comment: TALIA GEMENT OF PATIENT CARE PER NURSING PROTOCOL Performed By: #### L 501.080 ####[facility] [address] [place], [address] FINGERSTICK GLU 249 mg/dL High 74-106 [facility] Comment on above: Result Comment: TALIA GEMENT OF PATIENT CARE PER NURSING PROTOCOL Performed By: #### L 501.080 ####[facility] [address] [place], [address] FINGERSTICK GLU 205 mg/dL High 74-106 [facility] Comment on above: Result Comment: TALIA GEMENT OF PATIENT CARE PER NURSING PROTOCOL Performed By: #### L 501.080 ####[facility] [address] [place], [address] FINGERSTICK GLU 250 mg/dL High 74-106 [facility] Comment on above: Result Comment: TALIA CHAMBERS OF PATIENT CARE PER NURSING PROTOCOL Performed By: #### L 501.080 ####[facility] [address] [place], [address] Bilirubin, totalOrdered By: Rosaura Crane on 09-08-2024 Bilirubin [Mass/Vol] 0.65 mg/dL 0.00-1.30 [facility] Bilirubin, total 0.65 mg/dL 0.00-1.30 [facility] Blood cultureOrdered By: [place] Posadas on 09-08-2024 Bacteria identified Cx Nom (Bld) No growth in 5 days. [facility] Blood culture No growth in 5 days. [facility] Bacteria identified Cx Nom (Bld) No growth in 5 days. [facility] Blood culture No growth in 5 days. [facility] CBC W/Diff, Automatedon 04-0 Absolute Lymph 2.06 X10 3/uL Normal 0.83-4.51 [facility] Comment on above: Performed By: #### L 3300.0960, L501.9520, L506.1001, L100.0100, L500.4050, L509.1000 ####[facility] [address] [place], [address] Absolute Neut 5.2 X10 3/uL Normal 2.0-7.7 [facility] Comment on above: Performed By: #### L 3300.0960, L501.9520, L506.1001, L100.0100, L500.4050, L509.1000 ####[facility] [address] [place], [address] Basophils/100 WBC (Bld) 0.9 % Normal 0-1 [facility] Comment on above: Performed By: #### L 3300.0960, L501.9520, L506.1001, L100.0100, L500.4050, L509.1000 ####[facility] [address] [place], [address] Eosinophils/100 WBC (Bld) 2.4 % Normal 0-5 [facility] Comment on above: Performed By: #### L 3300.0960, L501.9520, L506.1001, L100.0100, L500.4050, L509.1000 ####[facility] [address] [place], [address] Erythrocyte distribution width (RBC) [Ratio] 13.5 % Normal 11.6-14.6 [facility] Comment on above: Performed By: #### L 3300.0960, L501.9520, L506.1001, L100.0100, L500.4050, L509.1000 ####[facility] [address] [place], [address] Hematocrit (Bld) [Volume fraction] 36.8 % Low 37-47 [facility] Comment on above: Performed By: #### L 3300.0960, L501.9520, L506.1001, L100.0100, L500.4050, L509.1000 ####[facility] [address] [place], [address] Hemoglobin (Bld) [Mass/Vol] 12.2 g/dL Normal 12.0-15.0 [facility] Comment on above: Performed By: #### L 3300.0960, L501.9520, L506.1001, L100.0100, L500.4050, L509.1000 ####[facility] [address] [place], [address] IG% 0.400 Normal 0.0-0.9 [facility] Comment on above: Result Comment: IG% - Immature Granulocytes (promyelocytes, myelocytes andmetamyelocytes) > 1% indicates that a LEFT SHIFT is Present. Performed By: #### L 3300.0960, L501.9520, L506.1001, L100.0100, L500.4050, L509.1000 ####[facility] [address] [place], [address] Lymphocytes/100 WBC (Bld) 25.7 % Normal 19-41 [facility] Comment on above: Performed By: #### L 3300.0960, L501.9520, L506.1001, L100.0100, L500.4050, L509.1000 ####[facility] [address] [place], [address] MCH (RBC) [Entitic mass] 27.6 pg Normal 27.0-32.0 [facility] Comment on above: Performed By: #### L 3300.0960, L501.9520, L506.1001, L100.0100, L500.4050, L509.1000 ####[facility] [address] [place], [address] MCHC (RBC) [Mass/Vol] 33.2 g/dL Normal 32-36 [facility] Comment on above: Performed By: #### L 3300.0960, L501.9520, L506.1001, L100.0100, L500.4050, L509.1000 ####[facility] [address] [place], [address] MCV (RBC) [Entitic vol] 83.3 fL Normal 81-99 [facility] Comment on above: Performed By: #### L 3300.0960, L501.9520, L506.1001, L100.0100, L500.4050, L509.1000 ####[facility] [address] [place], [address] Monocytes/100 WBC (Bld) 6.0 % Normal 0-10 [facility] Comment on above: Performed By: #### L 3300.0960, L501.9520, L506.1001, L100.0100, L500.4050, L509.1000 ####[facility] [address] [place], [address] Neutrophils/100 WBC (Bld) 64.6 % Normal 47-70 [facility] Comment on above: Performed By: #### L 3300.0960, L501.9520, L506.1001, L100.0100, L500.4050, L509.1000 ####[facility] [address] [place], [address] Nucleated RBC (Bld) [#/Vol] 0 10*3/uL Normal 0-5 [facility] Comment on above: Performed By: #### L 3300.0960, L501.9520, L506.1001, L100.0100, L500.4050, L509.1000 ####[facility] [address] [place], [address] Platelet mean volume (Bld) [Entitic vol] 9.5 fL Normal 6.2-12.0 [facility] Comment on above: Performed By: #### L 3300.0960, L501.9520, L506.1001, L100.0100, L500.4050, L509.1000 ####[facility] [address] [place], [address] Platelets (Bld) [#/Vol] 275 10*3/uL Normal 150-450 [facility] Comment on above: Performed By: #### L 3300.0960, L501.9520, L506.1001, L100.0100, L500.4050, L509.1000 ####[facility] [address] [place], [address] RBC (Bld) [#/Vol] 4.42 10*6/uL Normal 4.2-5.4 [facility] Comment on above: Performed By: #### L 3300.0960, L501.9520, L506.1001, L100.0100, L500.4050, L509.1000 ####[facility] [address] [place], [address] RDW SD 40.7 fl Normal 35.1-43.9 [facility] Comment on above: Performed By: #### L 3300.0960, L501.9520, L506.1001, L100.0100, L500.4050, L509.1000 ####[facility] [address] [place], [address] WBC (Bld) [#/Vol] 8.0 10*3/uL Normal 4.4-11.0 [facility] Comment on above: Performed By: #### L 3300.0960, L501.9520, L506.1001, L100.0100, L500.4050, L509.1000 ####[facility] [address] [place], [address] CDIFF (PCR)on 09-08-2024 CDIFF Pending 027 027 NAP1-B1 Presumptive Negative *for epidemiolologic???use C. Diff PCR Negative- No toxigenic C. Diff Detected Normal [facility] Comment on above: Performed By: #### M 100.637, M100.6796 ####[facility] [address] [place], [address] Calcium ionizedOrdered By: Keerthi Posadas on 09-08-2024 Calcium ionized 1.25 mmol/L 1.09-1.30 [facility] Clostridium difficile detect ion by polymerase chain reactionOrdered By: Rosaura Crane on 09-08-2024 C. difficile DNA CRISSY+probe Ql (Unsp spec) [facility] Comprehensive Metabolic Prof osirison 09-08-2024 Albumin [Mass/Vol] 3.1 g/dL Low 3.5-5.0 [facility] Comment on above: Performed By: #### L 3300.0960, L501.9520, L506.1001, L100.0100, L500.4050, L509.1000 ####[facility] [address] [place], [address] Albumin/Globulin [Mass ratio] 1.2 {ratio} Normal 0.9-2.4 [facility] Comment on above: Performed By: #### L 3300.0960, L501.9520, L506.1001, L100.0100, L500.4050, L509.1000 ####[facility] [address] [place], [address] ALK PHOS 105 U/L High 35-104 [facility] Comment on above: Performed By: #### L 3300.0960, L501.9520, L506.1001, L100.0100, L500.4050, L509.1000 ####[facility] [address] [place], [address] ALT [Catalytic activity/Vol] 14 U/L Normal <=34 [facility] Comment on above: Performed By: #### L 3300.0960, L501.9520, L506.1001, L100.0100, L500.4050, L509.1000 ####[facility] [address] [place], [address] AST [Catalytic activity/Vol] 23 U/L Normal <=31 [facility] Comment on above: Performed By: #### L 3300.0960, L501.9520, L506.1001, L100.0100, L500.4050, L509.1000 ####[facility] [address] [place], [address] Bilirubin [Mass/Vol] 0.65 mg/dL Normal 0.00-1.30 [facility] Comment on above: Performed By: #### L 3300.0960, L501.9520, L506.1001, L100.0100, L500.4050, L509.1000 ####[facility] [address] [place], [address] BUN/CRE 16.9 RATIO Normal 10-20 [facility] Comment on above: Performed By: #### L 3300.0960, L501.9520, L506.1001, L100.0100, L500.4050, L509.1000 ####[facility] [address] [place], [address] Calcium [Mass/Vol] 8.8 mg/dL Normal 7.6-11.0 [facility] Comment on above: Performed By: #### L 3300.0960, L501.9520, L506.1001, L100.0100, L500.4050, L509.1000 ####[facility] [address] [place], [address] Chloride [Moles/Vol] 105 mmol/L Normal 98-108 [facility] Comment on above: Performed By: #### L 3300.0960, L501.9520, L506.1001, L100.0100, L500.4050, L509.1000 ####[facility] [address] [place], [address] CO2 [Moles/Vol] 20.3 mmol/L Low 21.0-32.0 [facility] Comment on above: Performed By: #### L 3300.0960, L501.9520, L506.1001, L100.0100, L500.4050, L509.1000 ####[facility] [address] [place], [address] Creatinine [Mass/Vol] 0.88 mg/dL Normal 0.70-1.20 [facility] Comment on above: Performed By: #### L 3300.0960, L501.9520, L506.1001, L100.0100, L500.4050, L509.1000 ####[facility] [address] [place], [address] ECRCL 78.43 ml/min Normal 50-250 [facility] Comment on above: Performed By: #### L 3300.0960, L501.9520, L506.1001, L100.0100, L500.4050, L509.1000 ####[facility] [address] [place], [address] GAP 11 Normal 5-15 [facility] Comment on above: Performed By: #### L 3300.0960, L501.9520, L506.1001, L100.0100, L500.4050, L509.1000 ####[facility] [address] [place], [address] GFR/1.73 sq M.predicted among non-blacks MDRD (S/P/Bld) [Vol rate/Area] 78 mL/min/{1.73_m2} Normal >60 [facility] Comment on above: Result Comment: mL/m in/1.73m2 CKD-EPI Creatinine Equation (2020) Performed By: #### L 3300.0960, L501.9520, L506.1001, L100.0100, L500.4050, L509.1000 ####[facility] [address] [place], [address] Globulin (S) [Mass/Vol] 2.7 g/dL Normal 2.2-4.2 [facility] Comment on above: Performed By: #### L 3300.0960, L501.9520, L506.1001, L100.0100, L500.4050, L509.1000 ####[facility] [address] [place], [address] Glucose [Mass/Vol] 203 mg/dL High 70-99 [facility] Comment on above: Performed By: #### L 3300.0960, L501.9520, L506.1001, L100.0100, L500.4050, L509.1000 ####[facility] [address] [place], [address] Potassium [Moles/Vol] 3.1 mmol/L Low 3.3-5.1 [facility] Comment on above: Performed By: #### L 3300.0960, L501.9520, L506.1001, L100.0100, L500.4050, L509.1000 ####[facility] [address] [place], [address] Sodium [Moles/Vol] 136 mmol/L Normal 133-145 [facility] Comment on above: Performed By: #### L 3300.0960, L501.9520, L506.1001, L100.0100, L500.4050, L509.1000 ####[facility] [address] [place], [address] T PROT 5.9 g/dL Normal 5.9-8.4 [facility] Comment on above: Performed By: #### L 3300.0960, L501.9520, L506.1001, L100.0100, L500.4050, L509.1000 ####[facility] [address] [place], [address] Urea nitrogen [Mass/Vol] 15 mg/dL Normal 4-19 [facility] Comment on above: Performed By: #### L 3300.0960, L501.9520, L506.1001, L100.0100, L500.4050, L509.1000 ####[facility] [address] [place], [address] ENTERIC PATHOGEN PANEL STOOL on 09-08-2024 EP PANEL CAMPYLOBACTER Not Detected Norovirus Not Detected Rotavirus Not Detected Salmonella Not Detected Shiga Toxin Not Detected Shigella sp. Not Detected VIBRIO Not Detected Yersinia Not Detected Normal [facility] Comment on above: Performed By: #### M 100.637, M100.6796 ####[facility] [address] [place], [place], [address] Electrocardiogram reportOrde red By: Alli Brito on 09-08-2024 EKG study The [facility] Work Phone: [phone] 09-08-2024 Ionized Calcium 1.08 mmol/L Low 1.09-1.30 [facility] Comment on above: Performed By: #### L 501.2276 ####[facility] [address] [place], [place], [address] Ionized Calcium 1.25 mmol/L Normal 1.09-1.30 [facility] Comment on above: Performed By: #### L 501.2276 ####[facility] [address] [place], [address] L509.7001on 09-08-2024 Procalcitonin 0.14 ng/mL High <=0.10 [facility] Comment on above: Result Comment: Inte rpretation:<0.10-0.25 ng/mL: Antibiotic therapy discouraged. Bacterialinfection unlikely.0.25-0.50 ng/mL: Antibiotic therapy encouraged. Bacterialinfection possible.>0.50 ng/mL: Antibiotic therapy strongly encouraged.Suggestive of presence of bacterial infection.PCT should always be interpreted in the clinical context ofthe patient. Therefore, clinicians should use the PCTresults in conjunction with other laboratory findings andclinical signs of the patient. Performed By: #### L 509.7001 ####[facility] [address] [place], [address] No Panel InformationOrdered By: Rosaura Crane on 09-08-2024 23 U/L <32 [facility] PTH intactOrdered By: Rosaura Crane on 09-08-2024 PTH intact 28 pg/mL [facility] PTHINon 09-08-2024 PTH 28 pg/mL Normal [facility] Comment on above: Performed By: #### L 3300.0960, L501.9520, L506.1001, L100.0100, L500.4050, L509.1000 ####[facility] [address] [place], [place], [address] Serum globulin measurementOr dered By: Rosaura Crane on 09-08-2024 Globulin (S) [Mass/Vol] 2.7 g/dL 2.2-4.2 [facility] Serum globulin measurement 2.7 g/dL 2.2-4.2 [facility] Serum or plasma alanine hamilton otransferase (ALT) measurementOrdered By: Rosaura Crane 09-08-2024 ALT [Catalytic activity/Vol] 14 U/L <35 [facility] Serum or plasma albumin xiomara urement (mass/volume)Ordered By: Rosaura Crane 09-08-2024 Albumin [Mass/Vol] 3.1 g/dL Low 3.5-5.0 [facility] Serum or plasma albumin/glob ulin mass ratioOrdered By: Rosaura Rosa Maria 09-08-2024 Albumin/Globulin [Mass ratio] 1.2 {ratio} 0.9-2.4 [facility] Serum or plasma alkaline sabiha sphatase measurementOrdered By: Rosaura Crane 09-08-2024 ALP [Catalytic activity/Vol] 105 U/L High 35-104 [facility] Serum or plasma calcitriol m easurement (mass/volume)Ordered By: Rosaura Crane 09-08-2024 1,25-dihydroxyvitamin D3 [Mass/Vol] 29.9 pg/mL 24.8-81.5 [facility] TSH DL <= 0.005 mIU/L QnOrde red By: Rosaura Crane on 09-08-2024 TSH Qn 2.460 uIU/mL 0.300-4.20 0 [facility] Serum or plasma thyroid stimulating hormone (TSH) measurement by high sensitivity met 2.460 uIU/mL 0.300-4.20 0 [facility] Thyroid Stim Hormone (TSH)on 09-08-2024 TSH 2.460 uIU/mL Normal 0.300-4.20 0 [facility] Comment on above: Performed By: #### L 3300.0960, L501.9520, L506.1001, L100.0100, L500.4050, L509.1000 ####[facility] [address] [place], [address] Total proteinOrdered By: Castro Crane on 09-08-2024 Protein [Mass/Vol] 5.9 g/dL 5.9-8.4 [facility] Total protein 5.9 g/dL 5.9-8.4 [facility] Vitamin D, 25-hydroxyOrdered By: Rosaura Crane on 09-08-2024 Vitamin D, 25-hydroxy 14.3 ng/mL Low 30-100 [facility] Vitamin D,25 Hydroxyon 09-08 Vitamin D 25-OH 14.3 ng/mL Low 30-100 [facility] Comment on above: Result Comment: Charissa min D StatusDeficiency: <20 ng/mL (50nmol/L)Insufficiency: 20-30 ng/mL (50-75 nmol/L)Sufficiency: 30-100 ng/mL (75-250 nmol/L)Toxicity: >100 ng/mL (>250 nmol/L) Performed By: #### L 3300.0960, L501.9520, L506.1001, L100.0100, L500.4050, L509.1000 ####[facility] [address] [place], [address] 12 Lead EKGon 09-07-2024 12 Lead EKG Normal [facility] ALP [Catalytic activity/Vol] Ordered By: Davis bIarra on 09-07-2024 Serum or plasma alkaline phosphatase measurement 85 U/L 35-104 [facility] ALT [Catalytic activity/Vol] Ordered By: Davis Ibarra on 09-07-2024 Serum or plasma alanine aminotransferase (ALT) measurement 11 U/L <35 [facility] Abdomen/Pelvis W IV Cont ONL Yon 09-07-2024 Abdomen/Pelvis W IV Cont ONLY Normal [facility] Absolute neutrophil countOrd ered By: Davis Ibarra on 09-07-2024 Absolute neutrophil count 6.6 X10^3/uL 2.0-7.7 [facility] Albumin [Mass/Vol]Ordered By : Davis Ibarra on 09-07-2024 Serum or plasma albumin measurement (mass/volume) 2.6 g/dL Low 3.5-5.0 [facility] Albumin/Globulin [Mass ratio ]Ordered By: Davis Ibarra on 09-07-2024 Serum or plasma albumin/globulin mass ratio 1.3 RATIO 0.9-2.4 [facility] Anion gap [Moles/Vol]Ordered By: Davis Ibarra on 09-07-2024 Anion gap in Serum or Plasma 9 5-15 [facility] BUN/creatinine ratioOrdered By: Davis Ibarra on 09-07-2024 BUN/creatinine ratio 18.5 RATIO 10-20 [facility] Basophil percentageOrdered B y: Davis Ibarra on 09-07-2024 Basophil percentage 0.5 % 0-1 [facility] Bilirubin, totalOrdered By: Davis Ibarra on 09-07-2024 Bilirubin, total 0.40 mg/dL 0.00-1.30 [facility] CBC W/Diff, Automatedon Absolute Lymph 1.22 X10 3/uL Normal 0.83-4.51 [facility] Comment on above: Order Comment: REUBEN No. PREVIOUS SPECIMEN REJECTED DUE TOPOSSIBLE CONTAMINATION. 09/07/241742 Eileen Mauricio. Performed By: #### L 501.2450, L100.0100, L500.4050 ####[facility] [address] [place], [place], [id number] Absolute Neut 6.6 X10 3/uL Normal 2.0-7.7 [facility] Comment on above: Order Comment: REUBEN W. PREVIOUS SPECIMEN REJECTED DUE TOPOSSIBLE CONTAMINATION. 09/07/241742 Eileen Mauricio. Performed By: #### L 501.2450, L100.0100, L500.4050 ####[facility] [address] [place], [address] Basophils/100 WBC (Bld) 0.5 % Normal 0-1 [facility] Comment on above: Order Comment: REDRA W. PREVIOUS SPECIMEN REJECTED DUE TOPOSSIBLE CONTAMINATION. 09/07/241742 Eileen Mauricio. Performed By: #### L 501.2450, L100.0100, L500.4050 ####[facility] [address] [place], [address] Eosinophils/100 WBC (Bld) 1.7 % Normal 0-5 [facility] Comment on above: Order Comment: REDRA W. PREVIOUS SPECIMEN REJECTED DUE TOPOSSIBLE CONTAMINATION. 09/07/241742 Eileen Mauricio. Performed By: #### L 501.2450, L100.0100, L500.4050 ####[facility] [address] [place], [address] Erythrocyte distribution width (RBC) [Ratio] 13.3 % Normal 11.6-14.6 [facility] Comment on above: Order Comment: REDRA W. PREVIOUS SPECIMEN REJECTED DUE TOPOSSIBLE CONTAMINATION. 09/07/241742 Eileen Mauricio. Performed By: #### L 501.2450, L100.0100, L500.4050 ####[facility] [address] [place], [address] Hematocrit (Bld) [Volume fraction] 31.8 % Low 37-47 [facility] Comment on above: Order Comment: REDRA W. PREVIOUS SPECIMEN REJECTED DUE TOPOSSIBLE CONTAMINATION. 09/07/241742 Eileen Mauricio. Performed By: #### L 501.2450, L100.0100, L500.4050 ####[facility] [address] [place], [address] Hemoglobin (Bld) [Mass/Vol] 10.8 g/dL Low 12.0-15.0 [facility] Comment on above: Order Comment: REDRA W. PREVIOUS SPECIMEN REJECTED DUE TOPOSSIBLE CONTAMINATION. 09/07/241742 Eileen Mauricio. Performed By: #### L 501.2450, L100.0100, L500.4050 ####[facility] [address] [place], [address] IG% 0.500 Normal 0.0-0.9 [facility] Comment on above: Order Comment: REDRA W. PREVIOUS SPECIMEN REJECTED DUE TOPOSSIBLE CONTAMINATION. 09/07/241742 Eileen Mauricio. Result Comment: IG% - Immature Granulocytes (promyelocytes, myelocytes andmetamyelocytes) > 1% indicates that a LEFT SHIFT is Present. Performed By: #### L 501.2450, L100.0100, L500.4050 ####[facility] [address] [place], [address] Lymphocytes/100 WBC (Bld) 14.5 % Low 19-41 [facility] Comment on above: Order Comment: REDRA W. PREVIOUS SPECIMEN REJECTED DUE TOPOSSIBLE CONTAMINATION. 09/07/241742 Eileen Mauricio. Performed By: #### L 501.2450, L100.0100, L500.4050 ####[facility] [address] [place], [address] MCH (RBC) [Entitic mass] 28.3 pg Normal 27.0-32.0 [facility] Comment on above: Order Comment: REDRA W. PREVIOUS SPECIMEN REJECTED DUE TOPOSSIBLE CONTAMINATION. 09/07/241742 Eileen Mauricio. Performed By: #### L 501.2450, L100.0100, L500.4050 ####[facility] [address] [place], [address] MCHC (RBC) [Mass/Vol] 34.0 g/dL Normal 32-36 [facility] Comment on above: Order Comment: REDRA W. PREVIOUS SPECIMEN REJECTED DUE TOPOSSIBLE CONTAMINATION. 09/07/241742 Eileen Mauricio. Performed By: #### L 501.2450, L100.0100, L500.4050 ####[facility] [address] [place], [address] MCV (RBC) [Entitic vol] 83.2 fL Normal 81-99 [facility] Comment on above: Order Comment: REDRA W. PREVIOUS SPECIMEN REJECTED DUE TOPOSSIBLE CONTAMINATION. 09/07/241742 Eileen Mauricio. Performed By: #### L 501.2450, L100.0100, L500.4050 ####[facility] [address] [place], [address] Monocytes/100 WBC (Bld) 5.0 % Normal 0-10 [facility] Comment on above: Order Comment: REDRA W. PREVIOUS SPECIMEN REJECTED DUE TOPOSSIBLE CONTAMINATION. 09/07/241742 Eileen Mauricio. Performed By: #### L 501.2450, L100.0100, L500.4050 ####[facility] [address] [place], [address] Neutrophils/100 WBC (Bld) 77.8 % High 47-70 [facility] Comment on above: Order Comment: REDRA W. PREVIOUS SPECIMEN REJECTED DUE TOPOSSIBLE CONTAMINATION. 09/07/241742 Eileen Mauricio. Performed By: #### L 501.2450, L100.0100, L500.4050 ####[facility] [address] [place], [address] Nucleated RBC (Bld) [#/Vol] 0 10*3/uL Normal 0-5 [facility] Comment on above: Order Comment: REDRA W. PREVIOUS SPECIMEN REJECTED DUE TOPOSSIBLE CONTAMINATION. 09/07/241742 Eileen Mauricio. Performed By: #### L 501.2450, L100.0100, L500.4050 ####[facility] [address] [place], [address] Platelet mean volume (Bld) [Entitic vol] 9.3 fL Normal 6.2-12.0 [facility] Comment on above: Order Comment: REDRA W. PREVIOUS SPECIMEN REJECTED DUE TOPOSSIBLE CONTAMINATION. 09/07/241742 Eileen Mauricio. Performed By: #### L 501.2450, L100.0100, L500.4050 ####[facility] [address] [place], [address] Platelets (Bld) [#/Vol] 235 10*3/uL Normal 150-450 [facility] Comment on above: Order Comment: REDRA W. PREVIOUS SPECIMEN REJECTED DUE TOPOSSIBLE CONTAMINATION. 09/07/241742 Eileen Mauricio. Performed By: #### L 501.2450, L100.0100, L500.4050 ####[facility] [address] [place], [address] RBC (Bld) [#/Vol] 3.82 10*6/uL Low 4.2-5.4 [facility] Comment on above: Order Comment: REDRA W. PREVIOUS SPECIMEN REJECTED DUE TOPOSSIBLE CONTAMINATION. 09/07/241742 Eileen Mauricio. Performed By: #### L 501.2450, L100.0100, L500.4050 ####[facility] [address] [place], [address] RDW SD 40.4 fl Normal 35.1-43.9 [facility] Comment on above: Order Comment: REDRA W. PREVIOUS SPECIMEN REJECTED DUE TOPOSSIBLE CONTAMINATION. 09/07/241742 Eileen Mauricio. Performed By: #### L 501.2450, L100.0100, L500.4050 ####[facility] [address] [place], [address] WBC (Bld) [#/Vol] 8.4 10*3/uL Normal 4.4-11.0 [facility] Comment on above: Order Comment: REDRA W. PREVIOUS SPECIMEN REJECTED DUE TOPOSSIBLE CONTAMINATION. 09/07/241742 Eileen Mauricio. Performed By: #### L 501.2450, L100.0100, L500.4050 ####[facility] [address] [place], [address] Hemoglobin (Bld) [Mass/Vol] 4.8 g/dL Invalid Interpretation Code 12.0-15.0 [facility] Comment on above: Result Comment: This specimen has been REJECTED due to Laboratory criteria:Contaminated/Leaked.EVANGELIST has been notified of need of recollection.09/07/241741 Eileen LozanoCRITICAL VALUE CALLED TO César RENO09/07/24 1717 Li Coronel.RESULTS READ BACK BY SAME. Performed By: #### L 100.0100, L501.2450, L500.4050 ####[facility] [address] [place], [address] Absolute Lymph 0.64 X10 3/uL Low 0.83-4.51 [facility] Comment on above: Result Comment: This specimen has been REJECTED due to Laboratory criteria:Contaminated/Leaked.EVANGELIST has been notified of need of recollection.09/07/241741 Eileen Mauricio Performed By: #### L 100.0100, L501.2450, L500.4050 ####[facility] [address] [place], [address] Absolute Neut 3.3 X10 3/uL Normal 2.0-7.7 [facility] Comment on above: Result Comment: This specimen has been REJECTED due to Laboratory criteria:Contaminated/Leaked.EVANGELIST has been notified of need of recollection.09/07/241741 Eileen Mauricio Performed By: #### L 100.0100, L501.2450, L500.4050 ####[facility] [address] [place], [address] BASO# 0.00 X10 3/uL Normal [facility] Comment on above: Result Comment: This specimen has been REJECTED due to Laboratory criteria:Contaminated/Leaked.EVANGELIST has been notified of need of recollection.09/07/241741 Eileen Mauricio Performed By: #### L 100.0100, L501.2450, L500.4050 ####[facility] [address] [place], [address] Basophils/100 WBC (Bld) 0.0 % Normal 0-1 [facility] Comment on above: Result Comment: This specimen has been REJECTED due to Laboratory criteria:Contaminated/Leaked.EVANGELIST has been notified of need of recollection.09/07/241741 Eileen Mauricio Performed By: #### L 100.0100, L501.2450, L500.4050 ####[facility] [address] [place], [address] EOS# 0.05 X10 3/uL Normal [facility] Comment on above: Result Comment: This specimen has been REJECTED due to Laboratory criteria:Contaminated/Leaked.EVANGELIST has been notified of need of recollection.09/07/241741 Eileen Mauricio Performed By: #### L 100.0100, L501.2450, L500.4050 ####[facility] [address] [place], [address] Eosinophils/100 WBC (Bld) 1.2 % Normal 0-5 [facility] Comment on above: Result Comment: This specimen has been REJECTED due to Laboratory criteria:Contaminated/Leaked.EVANGELIST has been notified of need of recollection.09/07/241741 Eileen Mauricio Performed By: #### L 100.0100, L501.2450, L500.4050 ####[facility] [address] [place], [address] Erythrocyte distribution width (RBC) [Ratio] 13.4 % Normal 11.6-14.6 [facility] Comment on above: Result Comment: This specimen has been REJECTED due to Laboratory criteria:Contaminated/Leaked.EVANGELIST has been notified of need of recollection.09/07/241741 Eileen Mauricio Performed By: #### L 100.0100, L501.2450, L500.4050 ####[facility] [address] [place], [address] Hematocrit (Bld) [Volume fraction] 14.7 % Low 37-47 [facility] Comment on above: Result Comment: This specimen has been REJECTED due to Laboratory criteria:Contaminated/Leaked.EVANGELIST has been notified of need of recollection.09/07/241741 Eileen Mauricio Performed By: #### L 100.0100, L501.2450, L500.4050 ####[facility] [address] [place], [address] IG# 0.030 X10 3/uL High 0.0-0.0 [facility] Comment on above: Result Comment: This specimen has been REJECTED due to Laboratory criteria:Contaminated/Leaked.EVANGELIST has been notified of need of recollection.09/07/241741 Eileen Mauricio Performed By: #### L 100.0100, L501.2450, L500.4050 ####[facility] [address] [facility], [address] IG% 0.700 Normal 0.0-0.9 [facility] Comment on above: Result Comment: This specimen has been REJECTED due to Laboratory criteria:Contaminated/Leaked.EVANGELIST has been notified of need of recollection.09/07/241741 Eileen LozanoIG% - Immature Granulocytes (promyelocytes, myelocytes andmetamyelocytes) > 1% indicates that a LEFT SHIFT is Present. Performed By: #### L 100.0100, L501.2450, L500.4050 ####[facility] [address] [place], [address] LYMPH# 0.64 X10 3/ul Low 0.83-4.51 [facility] Comment on above: Result Comment: This specimen has been REJECTED due to Laboratory criteria:Contaminated/Leaked.EAVNGELIST has been notified of need of recollection.09/07/241741 Eileen Mauricio Performed By: #### L 100.0100, L501.2450, L500.4050 ####[facility] [address] [place], [address] Lymphocytes/100 WBC (Bld) 15.2 % Low 19-41 [facility] Comment on above: Result Comment: This specimen has been REJECTED due to Laboratory criteria:Contaminated/Leaked.EVANGELIST has been notified of need of recollection.09/07/241741 Eileen Mauricio Performed By: #### L 100.0100, L501.2450, L500.4050 ####[facility] [address] [place], [address] MCH (RBC) [Entitic mass] 28.4 pg Normal 27.0-32.0 [facility] Comment on above: Result Comment: This specimen has been REJECTED due to Laboratory criteria:Contaminated/Leaked.EVANGELIST has been notified of need of recollection.09/07/241741 Eileen Mauricio Performed By: #### L 100.0100, L501.2450, L500.4050 ####[facility] [address] [place], [address] MCHC (RBC) [Mass/Vol] 32.7 g/dL Normal 32-36 [facility] Comment on above: Result Comment: This specimen has been REJECTED due to Laboratory criteria:Contaminated/Leaked.EVANGELIST has been notified of need of recollection.09/07/241741 Eileen Mauricio Performed By: #### L 100.0100, L501.2450, L500.4050 ####[facility] [address] [place], [address] MCV (RBC) [Entitic vol] 87.0 fL Normal 81-99 [facility] Comment on above: Result Comment: This specimen has been REJECTED due to Laboratory criteria:Contaminated/Leaked.EVANGELIST has been notified of need of recollection.09/07/241741 Eileen Mauricio Performed By: #### L 100.0100, L501.2450, L500.4050 ####[facility] [address] [place], [address] MONO # 0.24 X10 3/uL Normal [facility] Comment on above: Result Comment: This specimen has been REJECTED due to Laboratory criteria:Contaminated/Leaked.PEPPER has been notified of need of recollection.09/07/241741 Eileen Mauricio Performed By: #### L 100.0100, L501.2450, L500.4050 ####[facility] [address] [place], [address] Monocytes/100 WBC (Bld) 5.7 % Normal 0-10 [facility] Comment on above: Result Comment: This specimen has been REJECTED due to Laboratory criteria:Contaminated/Leaked.EVANGELIST has been notified of need of recollection.09/07/241741 Eileen Mauricio Performed By: #### L 100.0100, L501.2450, L500.4050 ####[facility] [address] [place], [address] Neutrophil # 3.26 X10 3/uL Normal 2.7-7.7 [facility] Comment on above: Result Comment: This specimen has been REJECTED due to Laboratory criteria:Contaminated/Leaked.EVANGELIST has been notified of need of recollection.09/07/241741 Eileen Mauricio Performed By: #### L 100.0100, L501.2450, L500.4050 ####[facility] [address] [place], [address] Neutrophils/100 WBC (Bld) 77.2 % High 47-70 [facility] Comment on above: Result Comment: This specimen has been REJECTED due to Laboratory criteria:Contaminated/Leaked.EVANGELIST has been notified of need of recollection.09/07/241741 Eileen Mauricio Performed By: #### L 100.0100, L501.2450, L500.4050 ####[facility] [address] [place], [address] Nucleated RBC (Bld) [#/Vol] 0 10*3/uL Normal 0-5 [facility] Comment on above: Result Comment: This specimen has been REJECTED due to Laboratory criteria:Contaminated/Leaked.EVANGELIST has been notified of need of recollection.09/07/241741 Eileen Mauricio Performed By: #### L 100.0100, L501.2450, L500.4050 ####[facility] [address] [place], [address] Platelet mean volume (Bld) [Entitic vol] 8.8 fL Normal 6.2-12.0 [facility] Comment on above: Result Comment: This specimen has been REJECTED due to Laboratory criteria:Contaminated/Leaked.EVANGELIST has been notified of need of recollection.09/07/241741 Eileen Mauricio Performed By: #### L 100.0100, L501.2450, L500.4050 ####[facility] [address] [place], [address] Platelets (Bld) [#/Vol] 102 10*3/uL Low 150-450 [facility] Comment on above: Result Comment: This specimen has been REJECTED due to Laboratory criteria:Contaminated/Leaked.EVANGELIST has been notified of need of recollection.09/07/241741 Eileen Mauricoi Performed By: #### L 100.0100, L501.2450, L500.4050 ####[facility] [address] [place], [address] POSITIVE COUNT YES Abnormal [facility] Comment on above: Result Comment: This specimen has been REJECTED due to Laboratory criteria:Contaminated/Leaked.EVANGELIST has been notified of need of recollection.09/07/241741 Eileen Mauricio Performed By: #### L 100.0100, L501.2450, L500.4050 ####[facility] [address] [place], [address] RBC (Bld) [#/Vol] 1.69 10*6/uL Low 4.2-5.4 [facility] Comment on above: Result Comment: This specimen has been REJECTED due to Laboratory criteria:Contaminated/Leaked.EVANGELIST has been notified of need of recollection.09/07/241741 Eileen Mauricio Performed By: #### L 100.0100, L501.2450, L500.4050 ####[facility] [address] [place], [address] RDW SD 42.5 fl Normal 35.1-43.9 [facility] Comment on above: Result Comment: This specimen has been REJECTED due to Laboratory criteria:Contaminated/Leaked.EVANGELIST has been notified of need of recollection.09/07/241741 Eileen Mauricio Performed By: #### L 100.0100, L501.2450, L500.4050 ####[facility] [address] [place], [address] WBC (Bld) [#/Vol] 4.2 10*3/uL Low 4.4-11.0 [facility] Comment on above: Result Comment: This specimen has been REJECTED due to Laboratory criteria:Contaminated/Leaked.EVANGELIST has been notified of need of recollection.09/07/241741 Eileen Mauricio Performed By: #### L 100.0100, L501.2450, L500.4050 ####[facility] [address] [place], [address] Calcium [Mass/Vol]Ordered By : Davis Ibarra on 09-07-2024 Serum or plasma calcium measurement (mass/volume) 6.5 mg/dL Low 7.6-11.0 [facility] Carbon dioxide, total [Moles /volume] in Central venous bloodOrdered By: Davis Ibarra on 09-07-2024 Carbon dioxide, total [Moles/volume] in Central venous blood 18.5 mmol/L Low 21.0-32.0 [facility] Chloride assayOrdered By: Matt Ibarra on 09-07-2024 Chloride assay 108 mmol/L 98-108 [facility] Comprehensive Metabolic Prof ilon 09-07-2024 Potassium [Moles/Vol] 2.5 mmol/L Invalid Interpretation Code 3.3-5.1 [facility] Comment on above: Order Comment: REUBEN No. [...] Performed By: #### L 501.2450, L100.0100, L500.4050 ####[facility] [address] [place], [address] ALB Normal 3.5-5.0 [facility] Comment on above: Result Comment: This specimen has been REJECTED due to Laboratory criteria:Contaminated/Leaked.EVANGELIST has been notified of need of recollection.09/07/241741 Eileen Mauricio Performed By: #### L 100.0100, L501.2450, L500.4050 ####[facility] [address] [place], [address] ALK PHOS Normal 35-104 [facility] Comment on above: Result Comment: This specimen has been REJECTED due to Laboratory criteria:Contaminated/Leaked.EVANGELIST has been notified of need of recollection.09/07/241741 Eileen Mauricio Performed By: #### L 100.0100, L501.2450, L500.4050 ####[facility] [address] [place], [address] ALT Normal <=34 [facility] Comment on above: Result Comment: This specimen has been REJECTED due to Laboratory criteria:Contaminated/Leaked.EVANGELIST has been notified of need of recollection.09/07/241741 Eileen Mauricio Performed By: #### L 100.0100, L501.2450, L500.4050 ####[facility] [address] [place], [address] AST Normal <=31 [facility] Comment on above: Result Comment: This specimen has been REJECTED due to Laboratory criteria:Contaminated/Leaked.EVANGELIST has been notified of need of recollection.09/07/241741 Eileen Mauricio Performed By: #### L 100.0100, L501.2450, L500.4050 ####[facility] [address] [place], [address] BUN Normal 4-19 [facility] Comment on above: Result Comment: This specimen has been REJECTED due to Laboratory criteria:Contaminated/Leaked.EVANGELIST has been notified of need of recollection.09/07/241741 Eileen Mauricio Performed By: #### L 100.0100, L501.2450, L500.4050 ####[facility] [address] [place], [address] BUN/CRE Normal 10-20 [facility] Comment on above: Result Comment: This specimen has been REJECTED due to Laboratory criteria:Contaminated/Leaked.EVANGELIST has been notified of need of recollection.09/07/241741 Eileen Mauricio Performed By: #### L 100.0100, L501.2450, L500.4050 ####[facility] [address] [place], [address] Calcium Normal 7.6-11.0 [facility] Comment on above: Result Comment: This specimen has been REJECTED due to Laboratory criteria:Contaminated/Leaked.EVANGELIST has been notified of need of recollection.09/07/241741 Eileen Mauricio Performed By: #### L 100.0100, L501.2450, L500.4050 ####[facility] [address] [place], [address] CL Normal 98-108 [facility] Comment on above: Result Comment: This specimen has been REJECTED due to Laboratory criteria:Contaminated/Leaked.EVANGELIST has been notified of need of recollection.09/07/241741 Eileen Mauricio Performed By: #### L 100.0100, L501.2450, L500.4050 ####[facility] [address] [place], [address] CO2 Normal 21.0-32.0 [facility] Comment on above: Result Comment: This specimen has been REJECTED due to Laboratory criteria:Contaminated/Leaked.EVANGELIST has been notified of need of recollection.09/07/241741 Eileen Mauricio Performed By: #### L 100.0100, L501.2450, L500.4050 ####[facility] [address] [place], [address] CREAT,SERUM Normal 0.70-1.20 [facility] Comment on above: Result Comment: This specimen has been REJECTED due to Laboratory criteria:Contaminated/Leaked.EVANGELIST has been notified of need of recollection.09/07/241741 Eileen Mauricio Performed By: #### L 100.0100, L501.2450, L500.4050 ####[facility] [address] [place], [address] eGFR Normal >60 [facility] Comment on above: Result Comment: This specimen has been REJECTED due to Laboratory criteria:Contaminated/Leaked.EVANGELIST has been notified of need of recollection.09/07/241741 Eileen Mauricio Performed By: #### L 100.0100, L501.2450, L500.4050 ####[facility] [address] [place], [address] GAP Normal 5-15 [facility] Comment on above: Result Comment: This specimen has been REJECTED due to Laboratory criteria:Contaminated/Leaked.EVAGNELIST has been notified of need of recollection.09/07/241741 Eileen Mauricio Performed By: #### L 100.0100, L501.2450, L500.4050 ####[facility] [address] [place], [address] GLU Normal 70-99 [facility] Comment on above: Result Comment: This specimen has been REJECTED due to Laboratory criteria:Contaminated/Leaked.EVANGELIST has been notified of need of recollection.09/07/241741 Eileen Mauricio Performed By: #### L 100.0100, L501.2450, L500.4050 ####[facility] [address] [place], [address] Potassium Normal 3.3-5.1 [facility] Comment on above: Result Comment: This specimen has been REJECTED due to Laboratory criteria:Contaminated/Leaked.EVANGELIST has been notified of need of recollection.09/07/241741 Eileen Mauricio Performed By: #### L 100.0100, L501.2450, L500.4050 ####[facility] [address] [place], [address] T BILI Normal 0.00-1.30 [facility] Comment on above: Result Comment: This specimen has been REJECTED due to Laboratory criteria:Contaminated/Leaked.EVANGELIST has been notified of need of recollection.09/07/241741 Eileen Mauricio Performed By: #### L 100.0100, L501.2450, L500.4050 ####[facility] [address] [place], [address] T PROT Normal 5.9-8.4 [facility] Comment on above: Result Comment: This specimen has been REJECTED due to Laboratory criteria:Contaminated/Leaked.EVANGELIST has been notified of need of recollection.09/07/241741 Eileen Mauricio Performed By: #### L 100.0100, L501.2450, L500.4050 ####[facility] [address], [address] Comprehensive Metabolic Profil Normal 133-145 [facility] Comment on above: Result Comment: This specimen has been REJECTED due to Laboratory criteria:Contaminated/Leaked.PEPPER has been notified of need of recollection.09/07/24 1742 Eileen Mauricio Performed By: #### L 100.0100, L501.2450, L500.4050 ####[facility] [address] [place], [address] Creatinine [Mass/Vol]Ordered By: Davis Ibarra on 09-07-2024 Serum creatinine measurement (mass/volume) 0.92 mg/dL 0.70-1.20 [facility] Emergency Department Summary on 09-07-2024 Emergency Department Summary Normal [facility] Eosinophil percentageOrdered By: Davis Ibarra on 09-07-2024 Eosinophil percentage 1.7 % 0-5 [facility] Erythrocyte distribution wid th (RBC) [Ratio]Ordered By: Davis Ibarra on 09-07-2024 Erythrocyte distribution width ratio 13.3 % 11.6-14.6 [facility] Erythrocyte distribution width standard deviation 40.4 fl 35.1-43.9 [facility] Estimation of creatinine sylvain aranceOrdered By: Davis Ibarra on 09-07-2024 Estimation of creatinine clearance 76.05 ml/min 50-250 [facility] GFR/1.73 sq M.predicted estephanie g non-blacks MDRD (S/P/Bld) [Vol rate/Area]Ordered By: Davis Ibarra on 09-07-2024 Glomerular filtration rate (GFR) estimation/1.73 sq m using serum, plasma, or whole b 74 >60 [facility] Glucose [Mass/Vol]Ordered By : Davis Ibarra on 09-07-2024 Serum glucose measurement (mass/volume) 283 mg/dL High 70-99 [facility] H AND P Exam - Hospitaliston 09-07-2024 H&P Exam - Hospitalist Normal [facility] Hematocrit Auto (Bld) [Volum e fraction]Ordered By: Davis Ibarra on 09-07-2024 Automated blood hematocrit (percentage) 31.8 % Low 37-47 [facility] Hemoglobin measurementOrdere d By: Davis Ibarra on 09-07-2024 Hemoglobin measurement 10.8 g/dL Low 12.0-15.0 [facility] Immature granulocytes/100 WB C Auto (Bld)Ordered By: Davis Ibarra on 09-07-2024 Automated immature granulocyte percentage 0.500 % 0.0-0.9 [facility] Lipaseon 09-07-2024 Lipase [Catalytic activity/Vol] 28 U/L Normal 13-75 [facility] Comment on above: Order Comment: REUBEN Gomez PREVIOUS SPECIMEN REJECTED DUE TOPOSSIBLE CONTAMINATION. 09/07/241742 Eileen Mauricio. Result Comment: Gege edgar note:LIPASE revised reference range effective 22.New Lipase methodology. Expected to produce lower valuesthan the previous assay method.NEW Reference Range: 13 - 75 U/L Performed By: #### L 501.2450, L100.0100, L500.4050 ####[facility] [address] [place], [address] Lipase [Catalytic activity/Vol] 12 U/L Low 13-75 [facility] Comment on above: Order Comment: This specimen [...] Performed By: #### L 100.0100, L501.2450, L500.4050 ####[facility] [address] [place], [address] Lipase measurementOrdered By : Davis Ibarra on 09-07-2024 Lipase measurement 28 U/L 13-75 [facility] Lymphocytes Auto (Unsp spec) [#/Vol]Ordered By: Davis Ibarra on 09-07-2024 Absolute lymphocyte count 1.22 X10^3/uL 0.83-4.51 [facility] Lymphocytes/100 WBC Auto (Un sp spec)Ordered By: Davis Ibarra on 09-07-2024 Automated lymphocyte count as percentage of total leukocytes 14.5 % Low 19-41 [facility] MCV (RBC) [Entitic vol]Order ed By: Davis Ibarra on 09-07-2024 MCV (mean corpuscular volume) determination 83.2 fL 81-99 [facility] Magnesiumon 09-07-2024 Magnesium [Mass/Vol] 1.2 mg/dL Low 1.5-2.2 [facility] Comment on above: Performed By: #### L 501.5200 ####[facility] [address] [place], [address] Magnesium (Unsp spec) [Mass/ Vol]Ordered By: Davis Ibarra on 09-07-2024 Magnesium measurement (mass/volume) 1.2 mg/dL Low 1.5-2.2 [facility] Mean corpuscular hemoglobin (MCH) determinationOrdered By: Davis Ibarra on 09-07-2024 Mean corpuscular hemoglobin (MCH) determination 28.3 pg 27.0-32.0 [facility] Mean corpuscular hemoglobin concentration (MCHC) determinationOrdered By: Davis Ibarra on 09-07-2024 Mean corpuscular hemoglobin concentration (MCHC) determination 34.0 g/dL 32-36 [facility] Mean platelet volume determi nationOrdered By: Davis Ibarra on 09-07-2024 Mean platelet volume determination 9.3 fl 6.2-12.0 [facility] Monocyte percentageOrdered B y: Davis Ibarra on 09-07-2024 Monocyte percentage 5.0 % 0-10 [facility] Neutrophil percentageOrdered By: Davis Ibarra on 09-07-2024 Neutrophil percentage 77.8 % High 47-70 [facility] No Panel InformationOrdered By: Davis Ibarra on 09-07-2024 19 U/L <32 [facility] Nucleated red blood cell per centageOrdered By: Davis Ibarra on 09-07-2024 Nucleated red blood cell percentage 0 % 0-5 [facility] Phosphoruson 09-07-2024 Phosphate [Mass/Vol] 2.5 mg/dL Low 2.7-4.5 [facility] Comment on above: Performed By: #### L 501.2300 ####[facility] [address] [place], [address] Platelet countOrdered By: Matt Ibarra on 09-07-2024 Platelet count 235 K/mm3 150-450 [facility] Potassium (Unsp spec) [Mass/ Vol]Ordered By: Davis Ibarra on 09-07-2024 Potassium measurement (mass/volume) 2.5 mmol/L Low 3.3-5.1 [facility] Procalcitonin IA [Mass/Vol]O rdered By: Rosaura Crane on 09-07-2024 Procalcitonin [Mass/volume] in Serum or Plasma by Immunoassay 0.14 ng/mL High <0.11 [facility] Procalcitonin [Mass/volume] in Serum or Plasma by ImmunoassayOrdered By: Rosaura Crane on 09-07-2024 Procalcitonin IA [Mass/Vol] 0.14 ng/mL High <0.11 [facility] RBC Auto (Bld) [#/Vol]Ordere d By: Davis Ibarra on 09-07-2024 Automated blood erythrocyte count 3.82 M/mm3 Low 4.2-5.4 [facility] Serum globulin measurementOr dered By: Davis Ibarra on 09-07-2024 Serum globulin measurement 2.1 g/dL Low 2.2-4.2 [facility] Sodium levelOrdered By: Bhupendra Ibarra on 09-07-2024 Sodium level 136 mmol/L 133-145 [facility] Total proteinOrdered By: Latoya Ibarra on 09-07-2024 Total protein 4.7 g/dL Low 5.9-8.4 [facility] Type AND Screenon 09-07-2024 Ab SCREEN GEL Negative Normal [facility] Comment on above: Order Comment: A Performed By: #### B TS ####[facility] [address] [place], [address] Urea nitrogen [Mass/Vol]Orde red By: Davis Ibarra on 09-07-2024 Serum or plasma urea nitrogen measurement (mass/volume) 17 mg/dL 4- [facility] Urinalysis, Completeon 09-07 BACTERIA Normal None Seen [facility] Comment on above: Order Comment: UA CO MPLETED ON LEAN CATCH Result Comment: @COM PLETED ON 09/12 Performed By: #### L 400.0001 ####[facility] [address] [place], [address] BILIRUBIN URINE Normal Negative [facility] Comment on above: Order Comment: UA CO MPLETED ON LEAN CATCH Result Comment: @COM PLETED ON 09/12 Performed By: #### L 400.0001 ####[facility] [address] [place], [address] Clarity (U) Normal Clear [facility] Comment on above: Order Comment: UA CO MPLETED ON LEAN CATCH Result Comment: @COM PLETED ON 09/12 Performed By: #### L 400.0001 ####[facility] [address] [place], [address] Color (U) Normal Yellow [facility] Comment on above: Order Comment: UA CO MPLETED ON LEAN CATCH Result Comment: @COM PLETED ON 09/12 Performed By: #### L 400.0001 ####[facility] [address] [place], [address] EPI,SQUAMOUS Normal 5-10 [facility] Comment on above: Order Comment: UA CO MPLETED ON 11CLEAN CATCH Result Comment: @COM PLETED ON 09/12 Performed By: #### L 400.0001 ####[facility] [address] [place], [address] GLUCOSE, UR Normal Normal [facility] Comment on above: Order Comment: UA CO MPLETED ON LEAN CATCH Result Comment: @COM PLETED ON 09/12 Performed By: #### L 400.0001 ####[facility] [address] [place], [address] KETONE UR Normal Negative [facility] Comment on above: Order Comment: UA CO MPLETED ON LEAN CATCH Result Comment: @COM PLETED ON 09/12 Performed By: #### L 400.0001 ####[facility] [address] [place], [address] LEUK ESTERASE Normal Negative [facility] Comment on above: Order Comment: UA CO MPLETED ON LEAN CATCH Result Comment: @COM PLETED ON 09/12 Performed By: #### L 400.0001 ####[facility] [address] [place], [address] Mucus Ql (Urine sed) Normal [facility] Comment on above: Order Comment: UA CO MPLETED ON LEAN CATCH Result Comment: @COM PLETED ON 09/12 Performed By: #### L 400.0001 ####[facility] [address] [facility] [address] Nitrite Ql (U) Normal Negative [facility] Comment on above: Order Comment: UA CO MPLETED ON LEAN CATCH Result Comment: @COM PLETED ON 09/12 Performed By: #### L 400.0001 ####[facility] [address] [place], [address] OCCULT BLOOD-UR Normal Negative [facility] Comment on above: Order Comment: UA CO MPLETED ON LEAN CATCH Result Comment: @COM PLETED ON 09/12 Performed By: #### L 400.0001 ####[facility] [address] [place], [address] pH UR Normal 5.0 - 8.0 [facility] Comment on above: Order Comment: UA CO MPLETED ON LEAN CATCH Result Comment: @COM PLETED ON 09/12 Performed By: #### L 400.0001 ####[facility] [address] [place], [address] PROT DIPSTX Normal Negative [facility] Comment on above: Order Comment: UA CO MPLETED ON LEAN CATCH Result Comment: @COM PLETED ON 09/12 Performed By: #### L 400.0001 ####[facility] [address] [place], [address] RBC Normal 0-5 [facility] Comment on above: Order Comment: UA CO MPLETED ON LEAN CATCH Result Comment: @COM PLETED ON 09/12 Performed By: #### L 400.0001 ####[facility] [address] [place], [address] SP.GR. DIPSTX Normal 1.002-1.03 0 [facility] Comment on above: Order Comment: UA CO MPLETED ON LEAN CATCH Result Comment: @COM PLETED ON 09/12 Performed By: #### L 400.0001 ####[facility] [address] [place], [address] UR Preservative Normal [facility] Comment on above: Order Comment: UA CO MPLETED ON LEAN CATCH Result Comment: @COM PLETED ON 09/12 Performed By: #### L 400.0001 ####[facility] [address] [place], [address] UROBILI Normal Normal [facility] Comment on above: Order Comment: UA CO MPLETED ON LEAN CATCH Result Comment: @COM PLETED ON 09/12 Performed By: #### L 400.0001 ####[facility] [address] [place], [address] WBC Normal 0-5 [facility] Comment on above: Order Comment: UA CO MPLETED ON LEAN CATCH Result Comment: @COM PLETED ON 09/12 Performed By: #### L 400.0001 ####[facility] [address] [place], [address] White blood cell (WBC) count Ordered By: Davis Ibarra on 09-07-2024 White blood cell (WBC) count 8.4 K/mm3 4.4-11.0 [facility] ALP [Catalytic activity/Vol] Ordered By: Zack Card on 09-05-2024 Serum or plasma alkaline phosphatase measurement 141 U/L High 35-104 [facility] ALT [Catalytic activity/Vol] Ordered By: Zack Card on 09-05-2024 Serum or plasma alanine aminotransferase (ALT) measurement 22 U/L <35 [facility] Absolute lymphocyte countOrd ered By: Zack Card on 09-05-2024 Lymphocytes Auto (Unsp spec) [#/Vol] 1.39 10*3/uL 0.83-4.51 [facility] Absolute neutrophil countOrd ered By: Zack Card on 09-05-2024 Absolute neutrophil count 7.9 X10^3/uL High 2.0-7.7 [facility] Albumin [Mass/Vol]Ordered By : Zack Card on 09-05-2024 Serum or plasma albumin measurement (mass/volume) 4.2 g/dL 3.5-5.0 [facility] Albumin/Globulin [Mass ratio ]Ordered By: Zack Card on 09-05-2024 Serum or plasma albumin/globulin mass ratio 1.0 RATIO 0.9-2.4 [facility] Anion gap [Moles/Vol]Ordered By: Zack Card on 09-05-2024 Anion gap in Serum or Plasma 15 5-15 [facility] Anion gap in Serum or Plasma Ordered By: Zack Card on 09-05-2024 Anion gap [Moles/Vol] 15 mmol/L 5-15 [facility] Automated lymphocyte count a s percentage of total leukocytesOrdered By: Zack Card on 09-05-2024 Lymphocytes/100 WBC Auto (Unsp spec) 14.1 % Low 19-41 [facility] BUN/creatinine ratioOrdered By: Zack Card on 09-05-2024 Urea nitrogen/Creatinine [Mass ratio] 16.4 mg/mg 10- [facility] BUN/creatinine ratio 16.4 RATIO 10- [facility] Basophil percentageOrdered B y: Zack Card on 09-05-2024 Basophils/100 WBC (Bld) 0.4 % 0-1 [facility] Basophil percentage 0.4 % 0-1 [facility] Bilirubin, totalOrdered By: Zack Card on 09-05-2024 Bilirubin [Mass/Vol] 0.72 mg/dL 0.00-1.30 [facility] Bilirubin, total 0.72 mg/dL 0.00-1.30 [facility] CBC W/Diff, Automatedon Absolute Lymph 1.39 X10 3/uL Normal 0.83-4.51 [facility] Comment on above: Performed By: #### L 500.4050, L100.0100, L501.2450 ####[facility] [address] [place], [address] Absolute Neut 7.9 X10 3/uL High 2.0-7.7 [facility] Comment on above: Performed By: #### L 500.4050, L100.0100, L501.2450 ####[facility] [address] [place], [address] Basophils/100 WBC (Bld) 0.4 % Normal 0-1 [facility] Comment on above: Performed By: #### L 500.4050, L100.0100, L501.2450 ####[facility] [address] [place], [address] Eosinophils/100 WBC (Bld) 0.2 % Normal 0-5 [facility] Comment on above: Performed By: #### L 500.4050, L100.0100, L501.2450 ####[facility] [address] [place], [address] Erythrocyte distribution width (RBC) [Ratio] 13.3 % Normal 11.6-14.6 [facility] Comment on above: Performed By: #### L 500.4050, L100.0100, L501.2450 ####[facility] [address] [place], [address] Hematocrit (Bld) [Volume fraction] 44.4 % Normal 37-47 [facility] Comment on above: Performed By: #### L 500.4050, L100.0100, L501.2450 ####[facility] [address] [place], [address] Hemoglobin (Bld) [Mass/Vol] 15.1 g/dL High 12.0-15.0 [facility] Comment on above: Performed By: #### L 500.4050, L100.0100, L501.2450 ####[facility] [address] [place], [address] IG% 0.500 Normal 0.0-0.9 [facility] Comment on above: Result Comment: IG% - Immature Granulocytes (promyelocytes, myelocytes andmetamyelocytes) > 1% indicates that a LEFT SHIFT is Present. Performed By: #### L 500.4050, L100.0100, L501.2450 ####[facility] [address] [place], [address] Lymphocytes/100 WBC (Bld) 14.1 % Low 19-41 [facility] Comment on above: Performed By: #### L 500.4050, L100.0100, L501.2450 ####[facility] [address] [place], [address] MCH (RBC) [Entitic mass] 28.1 pg Normal 27.0-32.0 [facility] Comment on above: Performed By: #### L 500.4050, L100.0100, L501.2450 ####[facility] [address] [place], [address] MCHC (RBC) [Mass/Vol] 34.0 g/dL Normal 32-36 [facility] Comment on above: Performed By: #### L 500.4050, L100.0100, L501.2450 ####[facility] [address] [place], [address] MCV (RBC) [Entitic vol] 82.5 fL Normal 81-99 [facility] Comment on above: Performed By: #### L 500.4050, L100.0100, L501.2450 ####[facility] [address] [place], [address] Monocytes/100 WBC (Bld) 5.1 % Normal 0-10 [facility] Comment on above: Performed By: #### L 500.4050, L100.0100, L501.2450 ####[facility] [address] [place], [address] Neutrophils/100 WBC (Bld) 79.7 % High 47-70 [facility] Comment on above: Performed By: #### L 500.4050, L100.0100, L501.2450 ####[facility] [address] [place], [address] Nucleated RBC (Bld) [#/Vol] 0 10*3/uL Normal 0-5 [facility] Comment on above: Performed By: #### L 500.4050, L100.0100, L501.2450 ####[facility] [address] [place], [address] Platelet mean volume (Bld) [Entitic vol] 8.7 fL Normal 6.2-12.0 [facility] Comment on above: Performed By: #### L 500.4050, L100.0100, L501.2450 ####[facility] [address] [place], [address] Platelets (Bld) [#/Vol] 314 10*3/uL Normal 150-450 [facility] Comment on above: Performed By: #### L 500.4050, L100.0100, L501.2450 ####[facility] [address] [place], [address] RBC (Bld) [#/Vol] 5.38 10*6/uL Normal 4.2-5.4 [facility] Comment on above: Performed By: #### L 500.4050, L100.0100, L501.2450 ####[facility] [address] [place], [address] RDW SD 39.7 fl Normal 35.1-43.9 [facility] Comment on above: Performed By: #### L 500.4050, L100.0100, L501.2450 ####[facility] [address] [place], [address] WBC (Bld) [#/Vol] 9.9 10*3/uL Normal 4.4-11.0 [facility] Comment on above: Performed By: #### L 500.4050, L100.0100, L501.2450 ####[facility] [address] [place], [address] Calcium [Mass/Vol]Ordered By : Zack Card on 09-05-2024 Serum or plasma calcium measurement (mass/volume) 10.0 mg/dL 7.6-11.0 [facility] Carbon dioxide, total [Moles /volume] in Central venous bloodOrdered By: Zack Card on 09-05-2024 CO2 [Moles/Vol] 22.0 mmol/L 21.0-32.0 [facility] Carbon dioxide, total [Moles/volume] in Central venous blood 22.0 mmol/L 21.0-32.0 [facility] Chloride assayOrdered By: Butch Card on 09-05-2024 Chloride [Moles/Vol] 95 mmol/L Low 98-108 [facility] Chloride assay 95 mmol/L Low 98-108 [facility] Comprehensive Metabolic Prof ilon 09-05-2024 Albumin [Mass/Vol] 4.2 g/dL Normal 3.5-5.0 [facility] Comment on above: Performed By: #### L 500.4050, L100.0100, L501.2450 ####[facility] [address] [place], [address] Albumin/Globulin [Mass ratio] 1.0 {ratio} Normal 0.9-2.4 [facility] Comment on above: Performed By: #### L 500.4050, L100.0100, L501.2450 ####[facility] [address] [place], [address] ALK PHOS 141 U/L High 35-104 [facility] Comment on above: Performed By: #### L 500.4050, L100.0100, L501.2450 ####[facility] [address] [place], [address] ALT [Catalytic activity/Vol] 22 U/L Normal <=34 [facility] Comment on above: Performed By: #### L 500.4050, L100.0100, L501.2450 ####[facility] [address] [place], [address] AST [Catalytic activity/Vol] 33 U/L High <=31 [facility] Comment on above: Result Comment: Hemo lysis present, Results??could be affected.?? Performed By: #### L 500.4050, L100.0100, L501.2450 ####[facility] [address] [place], [address] Bilirubin [Mass/Vol] 0.72 mg/dL Normal 0.00-1.30 [facility] Comment on above: Performed By: #### L 500.4050, L100.0100, L501.2450 ####[facility] [address] [place], [address] BUN/CRE 16.4 RATIO Normal 10-20 [facility] Comment on above: Performed By: #### L 500.4050, L100.0100, L501.2450 ####[facility] [address] [place], [address] Calcium [Mass/Vol] 10.0 mg/dL Normal 7.6-11.0 [facility] Comment on above: Performed By: #### L 500.4050, L100.0100, L501.2450 ####[facility] [address] [place], [address] Chloride [Moles/Vol] 95 mmol/L Low 98-108 [facility] Comment on above: Performed By: #### L 500.4050, L100.0100, L501.2450 ####[facility] [address] [place], [address] CO2 [Moles/Vol] 22.0 mmol/L Normal 21.0-32.0 [facility] Comment on above: Performed By: #### L 500.4050, L100.0100, L501.2450 ####[facility] [address] [place], [address] Creatinine [Mass/Vol] 0.84 mg/dL Normal 0.70-1.20 [facility] Comment on above: Performed By: #### L 500.4050, L100.0100, L501.2450 ####[facility] [address] [place], [address] ECRCL 83.78 ml/min Normal 50-250 [facility] Comment on above: Performed By: #### L 500.4050, L100.0100, L501.2450 ####[facility] [address] [place], [address] GAP 15 Normal 5-15 [facility] Comment on above: Performed By: #### L 500.4050, L100.0100, L501.2450 ####[facility] [address] [place], [address] GFR/1.73 sq M.predicted among non-blacks MDRD (S/P/Bld) [Vol rate/Area] 83 mL/min/{1.73_m2} Normal >60 [facility] Comment on above: Result Comment: mL/m in/1.73m2 CKD-EPI Creatinine Equation (2020) Performed By: #### L 500.4050, L100.0100, L501.2450 ####[facility] [address] [place], [address] Globulin (S) [Mass/Vol] 4.0 g/dL Normal 2.2-4.2 [facility] Comment on above: Performed By: #### L 500.4050, L100.0100, L501.2450 ####[facility] [address] [place], [address] Glucose [Mass/Vol] 382 mg/dL High 70-99 [facility] Comment on above: Performed By: #### L 500.4050, L100.0100, L501.2450 ####[facility] [address] [place], [address] Potassium [Moles/Vol] 3.6 mmol/L Normal 3.3-5.1 [facility] Comment on above: Result Comment: Hemo lysis present, Results??could be affected.?? Performed By: #### L 500.4050, L100.0100, L501.2450 ####[facility] [address] [place], [address] Sodium [Moles/Vol] 132 mmol/L Low 133-145 [facility] Comment on above: Performed By: #### L 500.4050, L100.0100, L501.2450 ####[facility] [address] [place], [address] T PROT 8.2 g/dL Normal 5.9-8.4 [facility] Comment on above: Performed By: #### L 500.4050, L100.0100, L501.2450 ####[facility] [address] [place], [address] Urea nitrogen [Mass/Vol] 14 mg/dL Normal 4-19 [facility] Comment on above: Performed By: #### L 500.4050, L100.0100, L501.2450 ####[facility] [address] [place], [address] Creatinine [Mass/Vol]Ordered By: Zack Card on 09-05-2024 Serum creatinine measurement (mass/volume) 0.84 mg/dL 0.70-1.20 [facility] Emergency Department Summary on 09-05-2024 Emergency Department Summary Normal [facility] Eosinophil percentageOrdered By: Zack Card on 09-05-2024 Eosinophils/100 WBC (Bld) 0.2 % 0-5 [facility] Eosinophil percentage 0.2 % 0-5 [facility] Erythrocyte distribution wid th (RBC) [Ratio]Ordered By: Zack Card on 09-05-2024 Erythrocyte distribution width ratio 13.3 % 11.6-14.6 [facility] Erythrocyte distribution width standard deviation 39.7 fl 35.1-43.9 [facility] Erythrocyte distribution wid th ratioOrdered By: Zack Card on 09-05-2024 Erythrocyte distribution width (RBC) [Ratio] 13.3 % 11.6-14.6 [facility] Erythrocyte distribution wid th standard deviationOrdered By: Zack Card on 09-05-2024 Erythrocyte distribution width (RBC) [Ratio] 39.7 fl 35.1-43.9 [facility] Estimation of creatinine sylvain aranceOrdered By: Zack Card on 09-05-2024 Estimation of creatinine clearance 83.78 ml/min 50-250 [facility] GFR/1.73 sq M.predicted estephanie g non-blacks MDRD (S/P/Bld) [Vol rate/Area]Ordered By: Zack Card on 09-05-2024 Glomerular filtration rate (GFR) estimation/1.73 sq m using serum, plasma, or whole b 83 >60 [facility] Glomerular filtration rate ( GFR) estimation/1.73 sq m using serum, plasma, or whole bOrdered By: Zack Card on 09-05-2024 GFR/1.73 sq M.predicted among non-blacks MDRD (S/P/Bld) [Vol rate/Area] 83 mL/min/{1.73_m2} >60 [facility] Glucose [Mass/Vol]Ordered By : Zack Card on 09-05-2024 Serum glucose measurement (mass/volume) 382 mg/dL High 70-99 [facility] Hematocrit Auto (Bld) [Volum e fraction]Ordered By: Zack Card on 09-05-2024 Hematocrit (Bld) [Volume fraction] 44.4 % 37-47 [facility] Automated blood hematocrit (percentage) 44.4 % 37-47 [facility] Hemoglobin measurementOrdere d By: Zack Card on 09-05-2024 Hemoglobin (Bld) [Mass/Vol] 15.1 g/dL High 12.0-15.0 [facility] Hemoglobin measurement 15.1 g/dL High 12.0-15.0 [facility] Immature granulocytes/100 WB C Auto (Bld)Ordered By: Zack Card on 09-05-2024 Immature granulocytes/100 WBC (Bld) 0.500 % 0.0-0.9 [facility] Automated immature granulocyte percentage 0.500 % 0.0-0.9 [facility] Lipaseon 09-05-2024 Lipase [Catalytic activity/Vol] 33 U/L Normal 13-75 [facility] Comment on above: Result Comment: Gege edgar note:LIPASE revised reference range effective 22.New Lipase methodology. Expected to produce lower valuesthan the previous assay method.NEW Reference Range: 13 - 75 U/L Performed By: #### L 500.4050, L100.0100, L501.2450 ####[facility] [address] [place], [address] Lipase measurementOrdered By : Zack Card on 09-05-2024 Lipase measurement 33 U/L High <32 [facility] Lymphocytes Auto (Unsp spec) [#/Vol]Ordered By: Zack Card on 09-05-2024 Absolute lymphocyte count 1.39 X10^3/uL 0.83-4.51 [facility] Lymphocytes/100 WBC Auto (Un sp spec)Ordered By: Zack Card on 09-05-2024 Automated lymphocyte count as percentage of total leukocytes 14.1 % Low 19-41 [facility] MCV (RBC) [Entitic vol]Order ed By: Zack Card on 09-05-2024 MCV (mean corpuscular volume) determination 82.5 fL 81-99 [facility] MCV (mean corpuscular volume ) determinationOrdered By: Zack Card 09-05-2024 MCV (RBC) [Entitic vol] 82.5 fL 81-99 [facility] Mean corpuscular hemoglobin (MCH) determinationOrdered By: Zack Card 09-05-2024 MCH (RBC) [Entitic mass] 28.1 pg 27.0-32.0 [facility] Mean corpuscular hemoglobin (MCH) determination 28.1 pg 27.0-32.0 [facility] Mean corpuscular hemoglobin concentration (MCHC) determinationOrdered By: Zack Card on 09-05-2024 Mean corpuscular hemoglobin concentration (MCHC) determination 34.0 g/dL 32-36 [facility] Mean platelet volume determi nationOrdered By: Zack Card on 09-05-2024 Mean platelet volume determination 8.7 fl 6.2-12.0 [facility] Monocyte percentageOrdered B y: Zack Card on 09-05-2024 Monocytes/100 WBC (Bld) 5.1 % 0-10 [facility] Monocyte percentage 5.1 % 0-10 [facility] Neutrophil percentageOrdered By: Zack Card on 09-05-2024 Neutrophils/100 WBC (Bld) 79.7 % High 47-70 [facility] [facility] Neutrophil percentage 79.7 % High 47-70 [facility] Nucleated red blood cell per centageOrdered By: Zack Card on 09-05-2024 Nucleated red blood cell percentage 0 % 0-5 [facility] Platelet countOrdered By: Butch Card on 09-05-2024 Platelets (Bld) [#/Vol] 314 10*3/uL 150-450 [facility] Platelet count 314 K/mm3 150-450 [facility] Potassium (Unsp spec) [Mass/ Vol]Ordered By: Zack Card on 09-05-2024 Potassium measurement (mass/volume) 3.6 mmol/L 3.3-5.1 [facility] Potassium measurement (mass/ volume)Ordered By: Zack Card on 09-05-2024 Potassium (Unsp spec) [Mass/Vol] 3.6 mmol/L 3.3-5.1 [facility] RBC Auto (Bld) [#/Vol]Ordere d By: Zack Card on 09-05-2024 RBC (Bld) [#/Vol] 5.38 10*6/uL 4.2-5.4 [facility] Automated blood erythrocyte count 5.38 M/mm3 4.2-5.4 [facility] Serum creatinine measurement (mass/volume)Ordered By: Zack Card on 09-05-2024 Creatinine [Mass/Vol] 0.84 mg/dL 0.70-1.20 [facility] Serum globulin measurementOr dered By: Zack Card on 09-05-2024 Globulin (S) [Mass/Vol] 4.0 g/dL 2.2-4.2 [facility] Serum globulin measurement 4.0 g/dL 2.2-4.2 [facility] Serum glucose measurement (m ass/volume)Ordered By: Zack Card on 09-05-2024 Glucose [Mass/Vol] 382 mg/dL High 70-99 [facility] Serum or plasma alanine hamilton otransferase (ALT) measurementOrdered By: Zack Card on 09-05-2024 ALT [Catalytic activity/Vol] 22 U/L <35 [facility] Serum or plasma albumin xiomara urement (mass/volume)Ordered By: Zack Card on 09-05-2024 Albumin [Mass/Vol] 4.2 g/dL 3.5-5.0 [facility] Serum or plasma albumin/glob ulin mass ratioOrdered By: Zack Card on 09-05-2024 Albumin/Globulin [Mass ratio] 1.0 {ratio} 0.9-2.4 [facility] Serum or plasma alkaline sabiha sphatase measurementOrdered By: Zack Card on 09-05-2024 ALP [Catalytic activity/Vol] 141 U/L High 35-104 [facility] Serum or plasma calcium xiomara urement (mass/volume)Ordered By: Zack Card on 09-05-2024 Calcium [Mass/Vol] 10.0 mg/dL 7.6-11.0 [facility] Serum or plasma urea nitroge n measurement (mass/volume)Ordered By: Zack Card on 09-05-2024 Urea nitrogen [Mass/Vol] 14 mg/dL 09-20 [facility] Sodium levelOrdered By: Zack Card on 09-05-2024 Sodium [Moles/Vol] 132 mmol/L Low 133-145 [facility] Sodium level 132 mmol/L Low 133-145 [facility] Total proteinOrdered By: Sanjay Card on 09-05-2024 Protein [Mass/Vol] 8.2 g/dL 5.9-8.4 [facility] Total protein 8.2 g/dL 5.9-8.4 [facility] Urea nitrogen [Mass/Vol]Orde red By: Zack Card on 09-05-2024 Serum or plasma urea nitrogen measurement (mass/volume) 14 mg/dL 09-20 [facility] White blood cell (WBC) count Ordered By: Zack Card on 09-05-2024 WBC (Bld) [#/Vol] 9.9 10*3/uL 4.4-11.0 [facility] White blood cell (WBC) count 9.9 K/mm3 4.4-11.0 [facility] Basic Metabolic Profile (BMP )on 09-04-2024 BUN Normal 09-20 [facility] Comment on above: Result Comment: Canc elled via OM: Order cancelled - Patient discharged Performed By: #### L 500.2500, L100.0100 ####[facility] [address] [place], [address] BUN/CRE Normal 10-20 [facility] Comment on above: Result Comment: Canc elled via OM: Order cancelled - Patient discharged Performed By: #### L 500.2500, L100.0100 ####[facility] [address] [place], [address] Calcium Normal 7.6-11.0 [facility] Comment on above: Result Comment: Canc elled via OM: Order cancelled - Patient discharged Performed By: #### L 500.2500, L100.0100 ####[facility] [address] [place], [address] CL Normal 98-108 [facility] Comment on above: Result Comment: Canc elled via OM: Order cancelled - Patient discharged Performed By: #### L 500.2500, L100.0100 ####[facility] [address] [place], [address] CO2 Normal 21.0-32.0 [facility] Comment on above: Result Comment: Canc elled via OM: Order cancelled - Patient discharged Performed By: #### L 500.2500, L100.0100 ####[facility] [address] [place], [address] CREAT,SERUM Normal 0.70-1.20 [facility] Comment on above: Result Comment: Canc elled via OM: Order cancelled - Patient discharged Performed By: #### L 500.2500, L100.0100 ####[facility] [address] [place], [address] eGFR Normal >60 [facility] Comment on above: Result Comment: Canc elled via OM: Order cancelled - Patient discharged Performed By: #### L 500.2500, L100.0100 ####[facility] [address] [place], [address] GAP Normal 5-15 [facility] Comment on above: Result Comment: Canc elled via OM: Order cancelled - Patient discharged Performed By: #### L 500.2500, L100.0100 ####[facility] [address] [place], [address] GLU Normal 70-99 [facility] Comment on above: Result Comment: Canc elled via OM: Order cancelled - Patient discharged Performed By: #### L 500.2500, L100.0100 ####[facility] [address] [place], [address] Potassium Normal 3.3-5.1 [facility] Comment on above: Result Comment: Canc elled via OM: Order cancelled - Patient discharged Performed By: #### L 500.2500, L100.0100 ####[facility] [address] [place], [address] Basic Metabolic Profile (BMP) Normal 133-145 [facility] Comment on above: Result Comment: Canc elled via OM: Order cancelled - Patient discharged Performed By: #### L 500.2500, L100.0100 ####[facility] [address] [place], [address] CBC W/Diff, Automatedon 04-0 -2024 Absolute Neut Normal 2.0-7.7 [facility] Comment on above: Result Comment: Canc elled via OM: Order cancelled - Patient discharged Performed By: #### L 500.2500, L100.0100 ####[facility] [address] [place], [address] HCT Normal 37-47 [facility] Comment on above: Result Comment: Canc elled via OM: Order cancelled - Patient discharged Performed By: #### L 500.2500, L100.0100 ####[facility] [address] [place], [address] HGB Normal 12.0-15.0 [facility] Comment on above: Result Comment: Canc elled via OM: Order cancelled - Patient discharged Performed By: #### L 500.2500, L100.0100 ####[facility] [address] [place], [address] MCH Normal 27.0-32.0 [facility] Comment on above: Result Comment: Canc elled via OM: Order cancelled - Patient discharged Performed By: #### L 500.2500, L100.0100 ####[facility] [address] [place], [address] MCHC Normal 32-36 [facility] Comment on above: Result Comment: Canc elled via OM: Order cancelled - Patient discharged Performed By: #### L 500.2500, L100.0100 ####[facility] [address] [place], [address] MCV Normal 81-99 [facility] Comment on above: Result Comment: Canc elled via OM: Order cancelled - Patient discharged Performed By: #### L 500.2500, L100.0100 ####[facility] [address] [place], [address] NEUT% Normal 47-70 [facility] Comment on above: Result Comment: Canc elled via OM: Order cancelled - Patient discharged Performed By: #### L 500.2500, L100.0100 ####[facility] [address] [place], [address] PLT Normal 150-450 [facility] Comment on above: Result Comment: Canc elled via OM: Order cancelled - Patient discharged Performed By: #### L 500.2500, L100.0100 ####[facility] [address] [place], [address] RBC Normal 4.2-5.4 [facility] Comment on above: Result Comment: Canc elled via OM: Order cancelled - Patient discharged Performed By: #### L 500.2500, L100.0100 ####[facility] [address] [place], [address] RDW CV Normal 11.6-14.6 [facility] Comment on above: Result Comment: Canc elled via OM: Order cancelled - Patient discharged Performed By: #### L 500.2500, L100.0100 ####[facility] [address] [place], [address] RDW SD Normal 35.1-43.9 [facility] Comment on above: Result Comment: Canc elled via OM: Order cancelled - Patient discharged Performed By: #### L 500.2500, L100.0100 ####[facility] [address] [place], [address] WBC Normal 4.4-11.0 [facility] Comment on above: Result Comment: Canc elled via OM: Order cancelled - Patient discharged Performed By: #### L 500.2500, L100.0100 ####[facility] [address] [place], [address] Basic Metabolic Profile (BMP )on 09-03-2024 BUN Normal 4-19 [facility] Comment on above: Result Comment: Canc elled via OM: Order cancelled - Patient discharged Performed By: #### L 500.2500, L100.0100 ####[facility] [address] [place], [address] BUN/CRE Normal 10-20 [facility] Comment on above: Result Comment: Canc elled via OM: Order cancelled - Patient discharged Performed By: #### L 500.2500, L100.0100 ####[facility] [address] [place], [address] Calcium Normal 7.6-11.0 [facility] Comment on above: Result Comment: Canc elled via OM: Order cancelled - Patient discharged Performed By: #### L 500.2500, L100.0100 ####[facility] [address] [place], [address] CL Normal 98-108 [facility] Comment on above: Result Comment: Canc elled via OM: Order cancelled - Patient discharged Performed By: #### L 500.2500, L100.0100 ####[facility] [address] [place], [address] CO2 Normal 21.0-32.0 [facility] Comment on above: Result Comment: Canc elled via OM: Order cancelled - Patient discharged Performed By: #### L 500.2500, L100.0100 ####[facility] [address] [place], [address] CREAT,SERUM Normal 0.70-1.20 [facility] Comment on above: Result Comment: Canc elled via OM: Order cancelled - Patient discharged Performed By: #### L 500.2500, L100.0100 ####[facility] [address] [place], [address] eGFR Normal >60 [facility] Comment on above: Result Comment: Canc elled via OM: Order cancelled - Patient discharged Performed By: #### L 500.2500, L100.0100 ####[facility] [address] [place], [address] GAP Normal 5-15 [facility] Comment on above: Result Comment: Canc elled via OM: Order cancelled - Patient discharged Performed By: #### L 500.2500, L100.0100 ####[facility] [address] [place], [address] GLU Normal 70-99 [facility] Comment on above: Result Comment: Canc elled via OM: Order cancelled - Patient discharged Performed By: #### L 500.2500, L100.0100 ####[facility] [address] [place], [address] Potassium Normal 3.3-5.1 [facility] Comment on above: Result Comment: Canc elled via OM: Order cancelled - Patient discharged Performed By: #### L 500.2500, L100.0100 ####[facility] [address] [place], [address] Basic Metabolic Profile (BMP) Normal 133-145 [facility] Comment on above: Result Comment: Canc elled via OM: Order cancelled - Patient discharged Performed By: #### L 500.2500, L100.0100 ####[facility] [address] [place], [address] CBC W/Diff, Automatedon 04-0 Absolute Neut Normal 2.0-7.7 [facility] Comment on above: Result Comment: Canc elled via OM: Order cancelled - Patient discharged Performed By: #### L 500.2500, L100.0100 ####[facility] [address] [place], [address] HCT Normal 37-47 [facility] Comment on above: Result Comment: Canc elled via OM: Order cancelled - Patient discharged Performed By: #### L 500.2500, L100.0100 ####[facility] [address] [place], [address] HGB Normal 12.0-15.0 [facility] Comment on above: Result Comment: Canc elled via OM: Order cancelled - Patient discharged Performed By: #### L 500.2500, L100.0100 ####[facility] [address] [place], [address] MCH Normal 27.0-32.0 [facility] Comment on above: Result Comment: Canc elled via OM: Order cancelled - Patient discharged Performed By: #### L 500.2500, L100.0100 ####[facility] [address] [place], [address] MCHC Normal 32-36 [facility] Comment on above: Result Comment: Canc elled via OM: Order cancelled - Patient discharged Performed By: #### L 500.2500, L100.0100 ####[facility] [address] [place], [address] MCV Normal 81-99 [facility] Comment on above: Result Comment: Canc elled via OM: Order cancelled - Patient discharged Performed By: #### L 500.2500, L100.0100 ####[facility] [address] [place], [address] NEUT% Normal 47-70 [facility] Comment on above: Result Comment: Canc elled via OM: Order cancelled - Patient discharged Performed By: #### L 500.2500, L100.0100 ####[facility] [address] [place], [address] PLT Normal 150-450 [facility] Comment on above: Result Comment: Canc elled via OM: Order cancelled - Patient discharged Performed By: #### L 500.2500, L100.0100 ####[facility] [address] [place], [address] RBC Normal 4.2-5.4 [facility] Comment on above: Result Comment: Canc elled via OM: Order cancelled - Patient discharged Performed By: #### L 500.2500, L100.0100 ####[facility] [address] [place], [address] RDW CV Normal 11.6-14.6 [facility] Comment on above: Result Comment: Canc elled via OM: Order cancelled - Patient discharged Performed By: #### L 500.2500, L100.0100 ####[facility] [address] [place], [address] RDW SD Normal 35.1-43.9 [facility] Comment on above: Result Comment: Canc elled via OM: Order cancelled - Patient discharged Performed By: #### L 500.2500, L100.0100 ####[facility] [address] [place], [address] WBC Normal 4.4-11.0 [facility] Comment on above: Result Comment: Canc elled via OM: Order cancelled - Patient discharged Performed By: #### L 500.2500, L100.0100 ####[facility] [address] [place], [address] Absolute lymphocyte countOrd ered By: Latricia Aaron on 09-02-2024 Lymphocytes Auto (Unsp spec) [#/Vol] 1.33 10*3/uL 0.83-4.51 [facility] Absolute neutrophil countOrd ered By: Latricia Aaron on 09-02-2024 Absolute neutrophil count 7.4 X10^3/uL 2.0-7.7 [facility] Anion gap [Moles/Vol]Ordered By: Latricia Aaron on 09-02-2024 Anion gap in Serum or Plasma 14 5-15 [facility] Anion gap in Serum or Plasma Ordered By: Latricia Aaron on 09-02-2024 Anion gap [Moles/Vol] 14 mmol/L 5- [facility] Automated lymphocyte count a s percentage of total leukocytesOrdered By: Latricia Aaron on 09-02-2024 Lymphocytes/100 WBC Auto (Unsp spec) 14.4 % Low 19-41 [facility] BUN/creatinine ratioOrdered By: Latricia Aaron on 09-02-2024 Urea nitrogen/Creatinine [Mass ratio] 22.6 mg/mg High 10-20 [facility] BUN/creatinine ratio 22.6 RATIO High 10-20 [facility] Basic Metabolic Profile (BMP )on 09-02-2024 BUN/CRE 22.6 RATIO High 10-20 [facility] Comment on above: Performed By: #### L 500.2500, L501.5200, L100.0100, L501.2300 ####[facility] [address] [place], [address] ECRCL 105.77 ml/min Normal 50-250 [facility] Comment on above: Performed By: #### L 500.2500, L501.5200, L100.0100, L501.2300 ####[facility] [address] [place], [address] GAP 14 Normal 5-15 [facility] Comment on above: Performed By: #### L 500.2500, L501.5200, L100.0100, L501.2300 ####[facility] [address] [place], [address] Potassium [Moles/Vol] 3.9 mmol/L Normal 3.3-5.1 [facility] Comment on above: Performed By: #### L 500.2500, L501.5200, L100.0100, L501.2300 ####[facility] [address] [place], [address] Basophil percentageOrdered B y: Latricia Daypeter on 09-02-2024 Basophils/100 WBC (Bld) 0.3 % 0-1 [facility] Basophil percentage 0.3 % 0-1 [facility] Bedside Glucoseon 09-02-2024 FINGERSTICK GLU 229 mg/dL High 74-106 [facility] Comment on above: Result Comment: TALIA GEMENT OF PATIENT CARE PER NURSING PROTOCOL Performed By: #### L 501.080 ####[facility] [address] [place], [address] FINGERSTICK GLU 228 mg/dL High 74-106 [facility] Comment on above: Result Comment: TALIA GEMENT OF PATIENT CARE PER NURSING PROTOCOL Performed By: #### L 501.080 ####[facility] [address] [place], [address] FINGERSTICK GLU 248 mg/dL High 74-106 [facility] Comment on above: Result Comment: TALIA GEMENT OF PATIENT CARE PER NURSING PROTOCOL Performed By: #### L 501.080 ####[facility] [address] [place], [address] CBC W/Diff, Automatedon 04-0 -2024 Absolute Lymph 1.33 X10 3/uL Normal 0.83-4.51 [facility] Comment on above: Performed By: #### L 500.2500, L501.5200, L100.0100, L501.2300 ####[facility] [address] [place], [address] Absolute Neut 7.4 X10 3/uL Normal 2.0-7.7 [facility] Comment on above: Performed By: #### L 500.2500, L501.5200, L100.0100, L501.2300 ####[facility] [address] [place], [address] Basophils/100 WBC (Bld) 0.3 % Normal 0-1 [facility] Comment on above: Performed By: #### L 500.2500, L501.5200, L100.0100, L501.2300 ####[facility] [address] [place], [address] Eosinophils/100 WBC (Bld) 0.2 % Normal 0-5 [facility] Comment on above: Performed By: #### L 500.2500, L501.5200, L100.0100, L501.2300 ####[facility] [address] [place], [address] Erythrocyte distribution width (RBC) [Ratio] 13.8 % Normal 11.6-14.6 [facility] Comment on above: Performed By: #### L 500.2500, L501.5200, L100.0100, L501.2300 ####[facility] [address] [place], [address] Hematocrit (Bld) [Volume fraction] 42.7 % Normal 37-47 [facility] Comment on above: Performed By: #### L 500.2500, L501.5200, L100.0100, L501.2300 ####[facility] [address] [place], [address] Hemoglobin (Bld) [Mass/Vol] 14.0 g/dL Normal 12.0-15.0 [facility] Comment on above: Performed By: #### L 500.2500, L501.5200, L100.0100, L501.2300 ####[facility] [address] [place], [address] IG% 0.400 Normal 0.0-0.9 [facility] Comment on above: Result Comment: IG% - Immature Granulocytes (promyelocytes, myelocytes andmetamyelocytes) > 1% indicates that a LEFT SHIFT is Present. Performed By: #### L 500.2500, L501.5200, L100.0100, L501.2300 ####[facility] [address] [place], [address] Lymphocytes/100 WBC (Bld) 14.4 % Low 19-41 [facility] Comment on above: Performed By: #### L 500.2500, L501.5200, L100.0100, L501.2300 ####[facility] [address] [place], [address] MCH (RBC) [Entitic mass] 27.5 pg Normal 27.0-32.0 [facility] Comment on above: Performed By: #### L 500.2500, L501.5200, L100.0100, L501.2300 ####[facility] [address] [place], [address] MCHC (RBC) [Mass/Vol] 32.8 g/dL Normal 32-36 [facility] Comment on above: Performed By: #### L 500.2500, L501.5200, L100.0100, L501.2300 ####[facility] [address] [place], [address] MCV (RBC) [Entitic vol] 83.7 fL Normal 81-99 [facility] Comment on above: Performed By: #### L 500.2500, L501.5200, L100.0100, L501.2300 ####[facility] [address] [place], [address] Monocytes/100 WBC (Bld) 4.0 % Normal 0-10 [facility] Comment on above: Performed By: #### L 500.2500, L501.5200, L100.0100, L501.2300 ####[facility] [address] [place], [address] Neutrophils/100 WBC (Bld) 80.7 % High 47-70 [facility] Comment on above: Performed By: #### L 500.2500, L501.5200, L100.0100, L501.2300 ####[facility] [address] [place], [address] Nucleated RBC (Bld) [#/Vol] 0 10*3/uL Normal 0-5 [facility] Comment on above: Performed By: #### L 500.2500, L501.5200, L100.0100, L501.2300 ####[facility] [address] [place], [address] Platelet mean volume (Bld) [Entitic vol] 8.8 fL Normal 6.2-12.0 [facility] Comment on above: Performed By: #### L 500.2500, L501.5200, L100.0100, L501.2300 ####[facility] [address] [place], [address] Platelets (Bld) [#/Vol] 269 10*3/uL Normal 150-450 [facility] Comment on above: Performed By: #### L 500.2500, L501.5200, L100.0100, L501.2300 ####[facility] [address] [place], [address] RBC (Bld) [#/Vol] 5.10 10*6/uL Normal 4.2-5.4 [facility] Comment on above: Performed By: #### L 500.2500, L501.5200, L100.0100, L501.2300 ####[facility] [address] [place], [address] RDW SD 42.4 fl Normal 35.1-43.9 [facility] Comment on above: Performed By: #### L 500.2500, L501.5200, L100.0100, L501.2300 ####[facility] [address] [place], [address] WBC (Bld) [#/Vol] 9.2 10*3/uL Normal 4.4-11.0 [facility] Comment on above: Performed By: #### L 500.2500, L501.5200, L100.0100, L501.2300 ####[facility] [address] [place], [address] Calcium [Mass/Vol]Ordered By : Latricia Aaron on 09-02-2024 Serum or plasma calcium measurement (mass/volume) 9.4 mg/dL 7.6-11.0 [facility] Carbon dioxide, total [Moles /volume] in Central venous bloodOrdered By: Latricia Aaron on 09-02-2024 CO2 [Moles/Vol] 20.0 mmol/L Low 21.0-32.0 [facility] Comment on above: Performed By: #### L 500.2500, L501.5200, L100.0100, L501.2300 ####[facility] [address] [place], [address] Carbon dioxide, total [Moles/volume] in Central venous blood 20.0 mmol/L Low 21.0-32.0 [facility] Chloride assayOrdered By: Tristan Aaron on 09-02-2024 Chloride [Moles/Vol] 101 mmol/L Normal 98-108 [facility] Comment on above: Performed By: #### L 500.2500, L501.5200, L100.0100, L501.2300 ####[facility] [address] [place], [place], [id number] Chloride assay 101 mmol/L 98-108 [facility] Creatinine [Mass/Vol]Ordered By: Latricia Aaron on 09-02-2024 Serum creatinine measurement (mass/volume) 0.67 mg/dL Low 0.70-1.20 [facility] Eosinophil percentageOrdered By: Latricia Aaron on 09-02-2024 Eosinophils/100 WBC (Bld) 0.2 % 0-5 [facility] Eosinophil percentage 0.2 % 0-5 [facility] Erythrocyte distribution wid th (RBC) [Ratio]Ordered By: Latricia Aaron on 09-02-2024 Erythrocyte distribution width ratio 13.8 % 11.6-14.6 [facility] Erythrocyte distribution wid th ratioOrdered By: Latricia Aaron on 09-02-2024 Erythrocyte distribution width (RBC) [Ratio] 13.8 % 11.6-14.6 [facility] Erythrocyte distribution wid th standard deviationOrdered By: Latricia Aaron on 09-02-2024 Erythrocyte distribution width (RBC) [Ratio] 42.4 fl 35.1-43.9 [facility] Erythrocyte distribution width standard deviation 42.4 fl 35.1-43.9 [facility] Estimation of creatinine sylvain aranceOrdered By: Latricia Aaron on 09-02-2024 Estimation of creatinine clearance 105.77 ml/min 50-250 [facility] GFR/1.73 sq M.predicted estephanie g non-blacks MDRD (S/P/Bld) [Vol rate/Area]Ordered By: Latricia Aaron on 09-02-2024 Glomerular filtration rate (GFR) estimation/1.73 sq m using serum, plasma, or whole b 104 >60 [facility] Glomerular filtration rate ( GFR) estimation/1.73 sq m using serum, plasma, or whole bOrdered By: Latricia Aaron on 09-02-2024 GFR/1.73 sq M.predicted among non-blacks MDRD (S/P/Bld) [Vol rate/Area] 104 mL/min/{1.73_m2} Normal >60 [facility] Comment on above: Result Comment: mL/m in/1.73m2 CKD-EPI Creatinine Equation (2020) Performed By: #### L 500.2500, L501.5200, L100.0100, L501.2300 ####[facility] [address] [place], [address] Glucose [Mass/Vol]Ordered By : Latricia Aaron on 09-02-2024 Serum glucose measurement (mass/volume) 242 mg/dL High 70-99 [facility] Glucose measurement at bedsi deOrdered By: Latricia Aaron on 09-02-2024 Glucose [Mass/Vol] 229 mg/dL High 74-106 [facility] Glucose measurement at bedside 229 mg/dL High 74-106 [facility] Hematocrit Auto (Bld) [Volum e fraction]Ordered By: Latricia Aaron on 09-02-2024 Hematocrit (Bld) [Volume fraction] 42.7 % 37-47 [facility] Automated blood hematocrit (percentage) 42.7 % 37-47 [facility] Hemoglobin measurementOrdere d By: Latricia Aaron on 09-02-2024 Hemoglobin (Bld) [Mass/Vol] 14.0 g/dL 12.0-15.0 [facility] Hemoglobin measurement 14.0 g/dL 12.0-15.0 [facility] Immature granulocytes/100 WB C Auto (Bld)Ordered By: Latricia Aaron on 09-02-2024 Immature granulocytes/100 WBC (Bld) 0.400 % 0.0-0.9 [facility] Automated immature granulocyte percentage 0.400 % 0.0-0.9 [facility] Lymphocytes Auto (Unsp spec) [#/Vol]Ordered By: Latricia Aaron on 09-02-2024 Absolute lymphocyte count 1.33 X10^3/uL 0.83-4.51 [facility] Lymphocytes/100 WBC Auto (Un sp spec)Ordered By: Latricia Aaron on 09-02-2024 Automated lymphocyte count as percentage of total leukocytes 14.4 % Low 19-41 [facility] MCV (RBC) [Entitic vol]Order ed By: Latricia Aaron on 09-02-2024 MCV (mean corpuscular volume) determination 83.7 fL 81-99 [facility] MCV (mean corpuscular volume ) determinationOrdered By: Latricia Aaron on 09-02-2024 MCV (RBC) [Entitic vol] 83.7 fL 81-99 [facility] Magnesiumon 09-02-2024 Magnesium [Mass/Vol] 2.0 mg/dL Normal 1.5-2.2 [facility] Comment on above: Performed By: #### L 500.2500, L501.5200, L100.0100, L501.2300 ####[facility] [address] [place], [address] Magnesium (Unsp spec) [Mass/ Vol]Ordered By: Latricia Aaron on 09-02-2024 Magnesium measurement (mass/volume) 2.0 mg/dL 1.5-2.2 [facility] Magnesium measurement (mass/ volume)Ordered By: Latricia Aaron on 09-02-2024 Magnesium (Unsp spec) [Mass/Vol] 2.0 mg/dL 1.5-2.2 [facility] Mean corpuscular hemoglobin (MCH) determinationOrdered By: Latricia Aaron on 09-02-2024 MCH (RBC) [Entitic mass] 27.5 pg 27.0-32.0 [facility] Mean corpuscular hemoglobin (MCH) determination 27.5 pg 27.0-32.0 [facility] Mean corpuscular hemoglobin concentration (MCHC) determinationOrdered By: Latricia Aaron on 09-02-2024 Mean corpuscular hemoglobin concentration (MCHC) determination 32.8 g/dL 32-36 [facility] Mean platelet volume determi nationOrdered By: Latricia Aaron on 09-02-2024 Mean platelet volume determination 8.8 fl 6.2-12.0 [facility] Monocyte percentageOrdered B y: Latricia Aaron on 09-02-2024 Monocytes/100 WBC (Bld) 4.0 % 0-10 [facility] Monocyte percentage 4.0 % 0-10 [facility] Neutrophil percentageOrdered By: Latricia Aaron on 09-02-2024 Neutrophils/100 WBC (Bld) 80.7 % High 47-70 [facility] Neutrophil percentage 80.7 % High 47-70 [facility] Nucleated red blood cell per centageOrdered By: Latricia Aaron on 09-02-2024 Nucleated red blood cell percentage 0 % 0-5 [facility] Phosphoruson 09-02-2024 Phosphate [Mass/Vol] 2.1 mg/dL Low 2.7-4.5 [facility] Comment on above: Performed By: #### L 500.2500, L501.5200, L100.0100, L501.2300 ####[facility] [address] [place], [address] Platelet countOrdered By: Tristan Aaron on 09-02-2024 Platelets (Bld) [#/Vol] 269 10*3/uL 150-450 [facility] Platelet count 269 K/mm3 150-450 [facility] Potassium (Unsp spec) [Mass/ Vol]Ordered By: Latricia Aaron on 09-02-2024 Potassium measurement (mass/volume) 3.9 mmol/L 3.3-5.1 [facility] Potassium measurement (mass/ volume)Ordered By: Latricia Aaron on 09-02-2024 Potassium (Unsp spec) [Mass/Vol] 3.9 mmol/L 3.3-5.1 [facility] RBC Auto (Bld) [#/Vol]Ordere d By: Latricia Aaron on 09-02-2024 RBC (Bld) [#/Vol] 5.10 10*6/uL 4.2-5.4 [facility] Automated blood erythrocyte count 5.10 M/mm3 4.2-5.4 [facility] Serum creatinine measurement (mass/volume)Ordered By: Latricia Aaron on 09-02-2024 Creatinine [Mass/Vol] 0.67 mg/dL Low 0.70-1.20 [facility] Comment on above: Performed By: #### L 500.2500, L501.5200, L100.0100, L501.2300 ####[facility] [address] [place], [address] Serum glucose measurement (m ass/volume)Ordered By: Latricia Aaron on 09-02-2024 Glucose [Mass/Vol] 242 mg/dL High 70-99 [facility] Comment on above: Performed By: #### L 500.2500, L501.5200, L100.0100, L501.2300 ####[facility] [address] [place], [address] Serum or plasma calcium xiomara urement (mass/volume)Ordered By: Latricia Aaron on 09-02-2024 Calcium [Mass/Vol] 9.4 mg/dL Normal 7.6-11.0 [facility] Comment on above: Performed By: #### L 500.2500, L501.5200, L100.0100, L501.2300 ####[facility] [address] [place], [address] Serum or plasma urea nitroge n measurement (mass/volume)Ordered By: Latricia Aaron on 09-02-2024 Urea nitrogen [Mass/Vol] 15 mg/dL Normal 4-19 [facility] Comment on above: Performed By: #### L 500.2500, L501.5200, L100.0100, L501.2300 ####[facility] [address] [place], [address] Serum phosphorus measurement Ordered By: Latricia Aaron on 09-02-2024 Serum phosphorus measurement 2.1 mg/dL Low 2.7-4.5 [facility] Sodium levelOrdered By: Neymar Aaron on 09-02-2024 Sodium [Moles/Vol] 136 mmol/L Normal 133-145 [facility] Comment on above: Performed By: #### L 500.2500, L501.5200, L100.0100, L501.2300 ####[facility] [address] [place], [address] Sodium level 136 mmol/L 133-145 [facility] Urea nitrogen [Mass/Vol]Orde red By: Latricia Aaron on 09-02-2024 Serum or plasma urea nitrogen measurement (mass/volume) 15 mg/dL - [facility] White blood cell (WBC) count Ordered By: Latricia Aaron on 09-02-2024 WBC (Bld) [#/Vol] 9.2 10*3/uL 4.4-11.0 [facility] White blood cell (WBC) count 9.2 K/mm3 4.4-11.0 [facility] Basic Metabolic Profile (BMP )on 09-01-2024 BUN/CRE 27.7 RATIO High 10-20 [facility] Comment on above: Performed By: #### L 500.2500, L100.0500 ####[facility] [address] [place], [address] Calcium [Mass/Vol] 8.7 mg/dL Normal 7.6-11.0 [facility] Comment on above: Performed By: #### L 500.2500, L100.0500 ####[facility] [address] [place], [address] Chloride [Moles/Vol] 110 mmol/L High 98-108 [facility] Comment on above: Performed By: #### L 500.2500, L100.0500 ####[facility] [address] [place], [address] CO2 [Moles/Vol] 19.8 mmol/L Low 21.0-32.0 [facility] Comment on above: Performed By: #### L 500.2500, L100.0500 ####[facility] [address] [place], [address] Creatinine [Mass/Vol] 0.77 mg/dL Normal 0.70-1.20 [facility] Comment on above: Performed By: #### L 500.2500, L100.0500 ####[facility] [address] [place], [address] ECRCL 91.72 ml/min Normal 50-250 [facility] Comment on above: Performed By: #### L 500.2500, L100.0500 ####[facility] [address] [place], [address] GAP 8 Normal 5-15 [facility] Comment on above: Performed By: #### L 500.2500, L100.0500 ####[facility] [address] [place], [address] GFR/1.73 sq M.predicted among non-blacks MDRD (S/P/Bld) [Vol rate/Area] 93 mL/min/{1.73_m2} Normal >60 [facility] Comment on above: Result Comment: mL/m in/1.73m2 CKD-EPI Creatinine Equation (2020) Performed By: #### L 500.2500, L100.0500 ####[facility] [address] [place], [address] Glucose [Mass/Vol] 93 mg/dL Normal 70-99 [facility] Comment on above: Performed By: #### L 500.2500, L100.0500 ####[facility] [address] [place], [address] Potassium [Moles/Vol] 4.0 mmol/L Normal 3.3-5.1 [facility] Comment on above: Performed By: #### L 500.2500, L100.0500 ####[facility] [address] [place], [address] Sodium [Moles/Vol] 138 mmol/L Normal 133-145 [facility] Comment on above: Performed By: #### L 500.2500, L100.0500 ####[facility] [address] [place], [address] Urea nitrogen [Mass/Vol] 21 mg/dL High 4-19 [facility] Comment on above: Performed By: #### L 500.2500, L100.0500 ####[facility] [address] [place], [address] Bedside Glucoseon 09-01-2024 FINGERSTICK GLU 162 mg/dL High 74-106 [facility] Comment on above: Result Comment: TALIA GEMENT OF PATIENT CARE PER NURSING PROTOCOL Performed By: #### L 501.080 ####[facility] [address] [place], [address] FINGERSTICK GLU 58 mg/dL Low 74-106 [facility] Comment on above: Result Comment: TALIA GEMENT OF PATIENT CARE PER NURSING PROTOCOL Performed By: #### L 501.080 ####[facility] [address] [place], [address] FINGERSTICK GLU 142 mg/dL High 74-106 [facility] Comment on above: Result Comment: TALIA GEMENT OF PATIENT CARE PER NURSING PROTOCOL Performed By: #### L 501.080 ####[facility] [address] [place], [address] FINGERSTICK GLU 80 mg/dL Normal 74-106 [facility] Comment on above: Result Comment: TALIA GEMENT OF PATIENT CARE PER NURSING PROTOCOL Performed By: #### L 501.080 ####[facility] [address] [place], [address] FINGERSTICK GLU 73 mg/dL Low 74-106 [facility] Comment on above: Result Comment: TALIA GEMENT OF PATIENT CARE PER NURSING PROTOCOL Performed By: #### L 501.080 ####[facility] [address] [place], [address] FINGERSTICK GLU 139 mg/dL High 74-106 [facility] Comment on above: Result Comment: TALIA GEMENT OF PATIENT CARE PER NURSING PROTOCOL Performed By: #### L 501.080 ####[facility] [address] [place], [address] FINGERSTICK GLU 90 mg/dL Normal 74-106 [facility] Comment on above: Result Comment: TALIA GEMENT OF PATIENT CARE PER NURSING PROTOCOL Performed By: #### L 501.080 ####[facility] [address] [place], [address] CBC-Complete Blood Cnt No Di ffon 09-01-2024 Erythrocyte distribution width (RBC) [Ratio] 14.2 % Normal 11.6-14.6 [facility] Comment on above: Performed By: #### L 500.2500, L100.0500 ####[facility] [address] [place], [address] Hematocrit (Bld) [Volume fraction] 32.6 % Low 37-47 [facility] Comment on above: Performed By: #### L 500.2500, L100.0500 ####[facility] [address] [place], [address] Hemoglobin (Bld) [Mass/Vol] 10.7 g/dL Low 12.0-15.0 [facility] Comment on above: Performed By: #### L 500.2500, L100.0500 ####[facility] [address] [place], [address] MCH (RBC) [Entitic mass] 28.2 pg Normal 27.0-32.0 [facility] Comment on above: Performed By: #### L 500.2500, L100.0500 ####[facility] [address] [place], [address] MCHC (RBC) [Mass/Vol] 32.8 g/dL Normal 32-36 [facility] Comment on above: Performed By: #### L 500.2500, L100.0500 ####[facility] [address] [place], [address] MCV (RBC) [Entitic vol] 85.8 fL Normal 81-99 [facility] Comment on above: Performed By: #### L 500.2500, L100.0500 ####[facility] [address] [place], [address] Platelet mean volume (Bld) [Entitic vol] 9.0 fL Normal 6.2-12.0 [facility] Comment on above: Performed By: #### L 500.2500, L100.0500 ####[facility] [address] [place], [address] Platelets (Bld) [#/Vol] 238 10*3/uL Normal 150-450 [facility] Comment on above: Performed By: #### L 500.2500, L100.0500 ####[facility] [address] [place], [address] RBC (Bld) [#/Vol] 3.80 10*6/uL Low 4.2-5.4 [facility] Comment on above: Performed By: #### L 500.2500, L100.0500 ####[facility] [address] [place], [address] RDW SD 44.1 fl High 35.1-43.9 [facility] Comment on above: Performed By: #### L 500.2500, L100.0500 ####[facility] [address] [place], [address] WBC (Bld) [#/Vol] 6.6 10*3/uL Normal 4.4-11.0 [facility] Comment on above: Performed By: #### L 500.2500, L100.0500 ####[facility] [address] [place], [address] Echo Complete W/ Contraston 09-01-2024 Echo Complete W/ Contrast Normal [facility] Echocardiogram study reportO rdered By: Alli Brito on 09-01-2024 Study report [facility] Work Phone: Bedside Glucoseon 08-31-2024 FINGERSTICK GLU 228 mg/dL High 74-106 [facility] Comment on above: Result Comment: TALIA GEMENT OF PATIENT CARE PER NURSING PROTOCOL Performed By: #### L 501.080 ####[facility] [address] [place], [place], [address] FINGERSTICK GLU 129 mg/dL High 74-106 [facility] Comment on above: Result Comment: TALIA GEMENT OF PATIENT CARE PER NURSING PROTOCOL Performed By: #### L 501.080 ####[facility] [address] [place], [address] FINGERSTICK GLU 152 mg/dL High 74-106 [facility] Comment on above: Result Comment: TALIA GEMENT OF PATIENT CARE PER NURSING PROTOCOL Performed By: #### L 501.080 ####[facility] [address] [place], [address] FINGERSTICK GLU 126 mg/dL High 74-106 [facility] Comment on above: Result Comment: TALIA GEMENT OF PATIENT CARE PER NURSING PROTOCOL Performed By: #### L 501.080 ####[facility] [address] [place], [address] Bedside Glucoseon 08-30-2024 FINGERSTICK GLU 215 mg/dL High 74-106 [facility] Comment on above: Result Comment: TALIA GEMENT OF PATIENT CARE PER NURSING PROTOCOL Performed By: #### L 501.080 ####[facility] [address] [place], [address] FINGERSTICK GLU 253 mg/dL High 74-106 [facility] Comment on above: Result Comment: TALIA GEMENT OF PATIENT CARE PER NURSING PROTOCOL Performed By: #### L 501.080 ####[facility] [address] [place], [address] FINGERSTICK GLU 152 mg/dL High 74-106 [facility] Comment on above: Result Comment: TALIA GEMENT OF PATIENT CARE PER NURSING PROTOCOL Performed By: #### L 501.080 ####[facility] [address] [place], [address] FINGERSTICK GLU 117 mg/dL High 74-106 [facility] Comment on above: Result Comment: TALIA GEMENT OF PATIENT CARE PER NURSING PROTOCOL Performed By: #### L 501.080 ####[facility] [address] [place], [address] FINGERSTICK GLU 318 mg/dL High 74-106 [facility] Comment on above: Result Comment: TALIA GEMENT OF PATIENT CARE PER NURSING PROTOCOL Performed By: #### L 501.080 ####[facility] [address] [place], [address] CDIFF (PCR)on 08-30-2024 CDIFF Normal [facility] Comment on above: Performed By: #### M 100.637, M100.6796 ####[facility] [address] [place], [address] ENTERIC PATHOGEN PANEL STOOL on 08-30-2024 EP PANEL Normal [facility] Comment on above: Performed By: #### M 100.637, M100.6796 ####[facility] [address] [place], [address] Basic Metabolic Profile (BMP )on 08-29-2024 BUN/CRE 32.2 RATIO High 10-20 [facility] Comment on above: Performed By: #### L 100.0100, L500.2500 ####[facility] [address] [place], [address] Calcium [Mass/Vol] 8.9 mg/dL Normal 7.6-11.0 [facility] Comment on above: Performed By: #### L 100.0100, L500.2500 ####[facility] [address] [place], [address] Chloride [Moles/Vol] 104 mmol/L Normal 98-108 [facility] Comment on above: Performed By: #### L 100.0100, L500.2500 ####[facility] [address] [place], [address] CO2 [Moles/Vol] 21.3 mmol/L Normal 21.0-32.0 [facility] Comment on above: Performed By: #### L 100.0100, L500.2500 ####[facility] [address] [place], [address] Creatinine [Mass/Vol] 0.80 mg/dL Normal 0.70-1.20 [facility] Comment on above: Performed By: #### L 100.0100, L500.2500 ####[facility] [address] [place], [address] ECRCL 88.59 ml/min Normal 50-250 [facility] Comment on above: Performed By: #### L 100.0100, L500.2500 ####[facility] [address] [place], [address] GAP 10 Normal 5-15 [facility] Comment on above: Performed By: #### L 100.0100, L500.2500 ####[facility] [address] [place], [address] GFR/1.73 sq M.predicted among non-blacks MDRD (S/P/Bld) [Vol rate/Area] 89 mL/min/{1.73_m2} Normal >60 [facility] Comment on above: Result Comment: mL/m in/1.73m2 CKD-EPI Creatinine Equation (2020) Performed By: #### L 100.0100, L500.2500 ####[facility] [address] [place], [address] Glucose [Mass/Vol] 104 mg/dL High 70-99 [facility] Comment on above: Performed By: #### L 100.0100, L500.2500 ####[facility] [address] [place], [address] Potassium [Moles/Vol] 3.7 mmol/L Normal 3.3-5.1 [facility] Comment on above: Performed By: #### L 100.0100, L500.2500 ####[facility] [address] [place], [address] Sodium [Moles/Vol] 135 mmol/L Normal 133-145 [facility] Comment on above: Performed By: #### L 100.0100, L500.2500 ####[facility] [address] [place], [address] Urea nitrogen [Mass/Vol] 26 mg/dL High 4-19 [facility] Comment on above: Performed By: #### L 100.0100, L500.2500 ####[facility] [address] [place], [address] Bedside Glucoseon 08-29-2024 FINGERSTICK GLU 160 mg/dL High 74-106 [facility] Comment on above: Result Comment: TALIA GEMENT OF PATIENT CARE PER NURSING PROTOCOL Performed By: #### L 501.080 ####[facility] [address] [place], [address] FINGERSTICK GLU 156 mg/dL High 74-106 [facility] Comment on above: Result Comment: TALIA GEMENT OF PATIENT CARE PER NURSING PROTOCOL Performed By: #### L 501.080 ####[facility] [address] [place], [address] FINGERSTICK GLU 93 mg/dL Normal 74-106 [facility] Comment on above: Result Comment: TALIA CHAMBERS OF PATIENT CARE PER NURSING PROTOCOL Performed By: #### L 501.080 ####[facility] [address] [place], [address] CBC W/Diff, Automatedon 08-03 Absolute Lymph 2.20 X10 3/uL Normal 0.83-4.51 [facility] Comment on above: Performed By: #### L 100.0100, L500.2500 ####[facility] [address] [place], [address] Absolute Neut 5.8 X10 3/uL Normal 2.0-7.7 [facility] Comment on above: Performed By: #### L 100.0100, L500.2500 ####[facility] [address] [place], [address] Basophils/100 WBC (Bld) 0.6 % Normal 0-1 [facility] Comment on above: Performed By: #### L 100.0100, L500.2500 ####[facility] [address] [place], [address] Eosinophils/100 WBC (Bld) 2.4 % Normal 0-5 [facility] Comment on above: Performed By: #### L 100.0100, L500.2500 ####[facility] [address] [place], [address] Erythrocyte distribution width (RBC) [Ratio] 14.0 % Normal 11.6-14.6 [facility] Comment on above: Performed By: #### L 100.0100, L500.2500 ####[facility] [address] [place], [address] Hematocrit (Bld) [Volume fraction] 33.7 % Low 37-47 [facility] Comment on above: Performed By: #### L 100.0100, L500.2500 ####[facility] [address] [place], [address] Hemoglobin (Bld) [Mass/Vol] 11.2 g/dL Low 12.0-15.0 [facility] Comment on above: Performed By: #### L 100.0100, L500.2500 ####[facility] [address] [place], [address] IG% 0.300 Normal 0.0-0.9 [facility] Comment on above: Result Comment: IG% - Immature Granulocytes (promyelocytes, myelocytes andmetamyelocytes) > 1% indicates that a LEFT SHIFT is Present. Performed By: #### L 100.0100, L500.2500 ####[facility] [address] [place], [address] Lymphocytes/100 WBC (Bld) 24.4 % Normal 19-41 [facility] Comment on above: Performed By: #### L 100.0100, L500.2500 ####[facility] [address] [place], [address] MCH (RBC) [Entitic mass] 28.2 pg Normal 27.0-32.0 [facility] Comment on above: Performed By: #### L 100.0100, L500.2500 ####[facility] [address] [place], [address] MCHC (RBC) [Mass/Vol] 33.2 g/dL Normal 32-36 [facility] Comment on above: Performed By: #### L 100.0100, L500.2500 ####[facility] [address] [place], [address] MCV (RBC) [Entitic vol] 84.9 fL Normal 81-99 [facility] Comment on above: Performed By: #### L 100.0100, L500.2500 ####[facility] [address] [place], [address] Monocytes/100 WBC (Bld) 7.6 % Normal 0-10 [facility] Comment on above: Performed By: #### L 100.0100, L500.2500 ####[facility] [address] [place], [address] Neutrophils/100 WBC (Bld) 64.7 % Normal 47-70 [facility] Comment on above: Performed By: #### L 100.0100, L500.2500 ####[facility] [address] [place], [address] Nucleated RBC (Bld) [#/Vol] 0 10*3/uL Normal 0-5 [facility] Comment on above: Performed By: #### L 100.0100, L500.2500 ####[facility] [address] [place], [address] Platelet mean volume (Bld) [Entitic vol] 9.3 fL Normal 6.2-12.0 [facility] Comment on above: Performed By: #### L 100.0100, L500.2500 ####[facility] [address] [place], [address] Platelets (Bld) [#/Vol] 205 10*3/uL Normal 150-450 [facility] Comment on above: Performed By: #### L 100.0100, L500.2500 ####[facility] [address] [place], [address] RBC (Bld) [#/Vol] 3.97 10*6/uL Low 4.2-5.4 [facility] Comment on above: Performed By: #### L 100.0100, L500.2500 ####[facility] [address] [place], [address] RDW SD 43.4 fl Normal 35.1-43.9 [facility] Comment on above: Performed By: #### L 100.0100, L500.2500 ####[facility] [address] [place], [address] WBC (Bld) [#/Vol] 9.0 10*3/uL Normal 4.4-11.0 [facility] Comment on above: Performed By: #### L 100.0100, L500.2500 ####[facility] [address] [place], [address] Clostridium difficile detect ion by polymerase chain reactionOrdered By: Latricia Burdick on 08-29-2024 C. difficile DNA CRISSY+probe Ql (Unsp spec) [facility] ALP [Catalytic activity/Vol] Ordered By: Nicole Trujillo on 08-28-2024 Serum or plasma alkaline phosphatase measurement 115 U/L High 35-104 [facility] ALT [Catalytic activity/Vol] Ordered By: Nicole Trujillo on 08-28-2024 Serum or plasma alanine aminotransferase (ALT) measurement 11 U/L <35 [facility] Albumin [Mass/Vol]Ordered By : Nicole Trujillo on 08-28-2024 Serum or plasma albumin measurement (mass/volume) 3.2 g/dL Low 3.5-5.0 [facility] Albumin/Globulin [Mass ratio ]Ordered By: Nicole Trujillo on 08-28-2024 Serum or plasma albumin/globulin mass ratio 1.1 RATIO 0.9-2.4 [facility] Bedside Glucoseon 08-28-2024 FINGERSTICK GLU 182 mg/dL High 74-106 [facility] Comment on above: Result Comment: TALIA GEMENT OF PATIENT CARE PER NURSING PROTOCOL Performed By: #### L 501.080 ####[facility] [address] [place], [address] FINGERSTICK GLU 176 mg/dL High 74-106 [facility] Comment on above: Result Comment: TALIA GEMENT OF PATIENT CARE PER NURSING PROTOCOL Performed By: #### L 501.080 ####[facility] [address] [place], [address] FINGERSTICK GLU 192 mg/dL High 74-106 [facility] Comment on above: Result Comment: TALIA GEMENT OF PATIENT CARE PER NURSING PROTOCOL Performed By: #### L 501.080 ####[facility] [address] [place], [address] FINGERSTICK GLU 157 mg/dL High 74-106 [facility] Comment on above: Result Comment: TALIA GEMENT OF PATIENT CARE PER NURSING PROTOCOL Performed By: #### L 501.080 ####[facility] [address] [place], [address] Bilirubin, totalOrdered By: Nicole Trujillo on 08-28-2024 Bilirubin [Mass/Vol] 0.53 mg/dL 0.00-1.30 [facility] Bilirubin, total 0.53 mg/dL 0.00-1.30 [facility] CBC W/Diff, Automatedon 08-03 Absolute Lymph 1.79 X10 3/uL Normal 0.83-4.51 [facility] Comment on above: Performed By: #### L 501.2300, L100.0100, L500.4050, L501.5200 ####[facility] [address] [place], [address] Absolute Neut 5.2 X10 3/uL Normal 2.0-7.7 [facility] Comment on above: Performed By: #### L 501.2300, L100.0100, L500.4050, L501.5200 ####[facility] [address] [place], [address] Basophils/100 WBC (Bld) 0.5 % Normal 0-1 [facility] Comment on above: Performed By: #### L 501.2300, L100.0100, L500.4050, L501.5200 ####[facility] [address] [place], [address] Eosinophils/100 WBC (Bld) 3.0 % Normal 0-5 [facility] Comment on above: Performed By: #### L 501.2300, L100.0100, L500.4050, L501.5200 ####[facility] [address] [place], [address] Erythrocyte distribution width (RBC) [Ratio] 14.3 % Normal 11.6-14.6 [facility] Comment on above: Performed By: #### L 501.2300, L100.0100, L500.4050, L501.5200 ####[facility] [address] [place], [address] Hematocrit (Bld) [Volume fraction] 34.8 % Low 37-47 [facility] Comment on above: Performed By: #### L 501.2300, L100.0100, L500.4050, L501.5200 ####[facility] [address] [place], [address] Hemoglobin (Bld) [Mass/Vol] 11.7 g/dL Low 12.0-15.0 [facility] Comment on above: Performed By: #### L 501.2300, L100.0100, L500.4050, L501.5200 ####[facility] [address] [place], [address] IG% 0.400 Normal 0.0-0.9 [facility] Comment on above: Result Comment: IG% - Immature Granulocytes (promyelocytes, myelocytes andmetamyelocytes) > 1% indicates that a LEFT SHIFT is Present. Performed By: #### L 501.2300, L100.0100, L500.4050, L501.5200 ####[facility] [address] [place], [address] Lymphocytes/100 WBC (Bld) 22.7 % Normal 19-41 [facility] Comment on above: Performed By: #### L 501.2300, L100.0100, L500.4050, L501.5200 ####[facility] [address] [place], [address] MCH (RBC) [Entitic mass] 27.8 pg Normal 27.0-32.0 [facility] Comment on above: Performed By: #### L 501.2300, L100.0100, L500.4050, L501.5200 ####[facility] [address] [place], [address] MCHC (RBC) [Mass/Vol] 33.6 g/dL Normal 32-36 [facility] Comment on above: Performed By: #### L 501.2300, L100.0100, L500.4050, L501.5200 ####[facility] [address] [place], [address] MCV (RBC) [Entitic vol] 82.7 fL Normal 81-99 [facility] Comment on above: Performed By: #### L 501.2300, L100.0100, L500.4050, L501.5200 ####[facility] [address] [place], [address] Monocytes/100 WBC (Bld) 6.7 % Normal 0-10 [facility] Comment on above: Performed By: #### L 501.2300, L100.0100, L500.4050, L501.5200 ####[facility] [address] [place], [address] Neutrophils/100 WBC (Bld) 66.7 % Normal 47-70 [facility] Comment on above: Performed By: #### L 501.2300, L100.0100, L500.4050, L501.5200 ####[facility] [address] [place], [address] Nucleated RBC (Bld) [#/Vol] 0.3 10*3/uL Normal 0-5 [facility] Comment on above: Performed By: #### L 501.2300, L100.0100, L500.4050, L501.5200 ####[facility] [address] [place], [address] Platelet mean volume (Bld) [Entitic vol] 9.8 fL Normal 6.2-12.0 [facility] Comment on above: Performed By: #### L 501.2300, L100.0100, L500.4050, L501.5200 ####[facility] [address] [place], [address] Platelets (Bld) [#/Vol] 203 10*3/uL Normal 150-450 [facility] Comment on above: Performed By: #### L 501.2300, L100.0100, L500.4050, L501.5200 ####[facility] [address] [place], [address] RBC (Bld) [#/Vol] 4.21 10*6/uL Normal 4.2-5.4 [facility] Comment on above: Performed By: #### L 501.2300, L100.0100, L500.4050, L501.5200 ####[facility] [address] [place], [address] RDW SD 42.4 fl Normal 35.1-43.9 [facility] Comment on above: Performed By: #### L 501.2300, L100.0100, L500.4050, L501.5200 ####[facility] [address] [place], [address] WBC (Bld) [#/Vol] 7.9 10*3/uL Normal 4.4-11.0 [facility] Comment on above: Performed By: #### L 501.2300, L100.0100, L500.4050, L501.5200 ####[facility] [address] [place], [address] Comprehensive Metabolic Prof ilon 08-28-2024 Albumin [Mass/Vol] 3.2 g/dL Low 3.5-5.0 [facility] Comment on above: Performed By: #### L 501.2300, L100.0100, L500.4050, L501.5200 ####[facility] [address] [place], [address] Albumin/Globulin [Mass ratio] 1.1 {ratio} Normal 0.9-2.4 [facility] Comment on above: Performed By: #### L 501.2300, L100.0100, L500.4050, L501.5200 ####[facility] [address] [place], [address] ALK PHOS 115 U/L High 35-104 [facility] Comment on above: Performed By: #### L 501.2300, L100.0100, L500.4050, L501.5200 ####[facility] [address] [place], [address] ALT [Catalytic activity/Vol] 11 U/L Normal <=34 [facility] Comment on above: Performed By: #### L 501.2300, L100.0100, L500.4050, L501.5200 ####[facility] [address] [place], [address] AST [Catalytic activity/Vol] 20 U/L Normal <=31 [facility] Comment on above: Performed By: #### L 501.2300, L100.0100, L500.4050, L501.5200 ####[facility] [address] [place], [address] Bilirubin [Mass/Vol] 0.53 mg/dL Normal 0.00-1.30 [facility] Comment on above: Performed By: #### L 501.2300, L100.0100, L500.4050, L501.5200 ####[facility] [address] [place], [address] BUN/CRE 27.2 RATIO High 10-20 [facility] Comment on above: Performed By: #### L 501.2300, L100.0100, L500.4050, L501.5200 ####[facility] [address] [place], [address] Calcium [Mass/Vol] 9.1 mg/dL Normal 7.6-11.0 [facility] Comment on above: Performed By: #### L 501.2300, L100.0100, L500.4050, L501.5200 ####[facility] [address] [place], [address] Chloride [Moles/Vol] 104 mmol/L Normal 98-108 [facility] Comment on above: Performed By: #### L 501.2300, L100.0100, L500.4050, L501.5200 ####[facility] [address] [place], [address] CO2 [Moles/Vol] 21.5 mmol/L Normal 21.0-32.0 [facility] Comment on above: Performed By: #### L 501.2300, L100.0100, L500.4050, L501.5200 ####[facility] [address] [place], [address] Creatinine [Mass/Vol] 0.71 mg/dL Normal 0.70-1.20 [facility] Comment on above: Performed By: #### L 501.2300, L100.0100, L500.4050, L501.5200 ####[facility] [address] [place], [address] ECRCL 99.53 ml/min Normal 50-250 [facility] Comment on above: Performed By: #### L 501.2300, L100.0100, L500.4050, L501.5200 ####[facility] [address] [place], [address] GAP 10 Normal 5-15 [facility] Comment on above: Performed By: #### L 501.2300, L100.0100, L500.4050, L501.5200 ####[facility] [address] [place], [address] GFR/1.73 sq M.predicted among non-blacks MDRD (S/P/Bld) [Vol rate/Area] 101 mL/min/{1.73_m2} Normal >60 [facility] Comment on above: Result Comment: mL/m in/1.73m2 CKD-EPI Creatinine Equation (2020) Performed By: #### L 501.2300, L100.0100, L500.4050, L501.5200 ####[facility] [address] [place], [address] Globulin (S) [Mass/Vol] 3.0 g/dL Normal 2.2-4.2 [facility] Comment on above: Performed By: #### L 501.2300, L100.0100, L500.4050, L501.5200 ####[facility] [address] [place], [address] Glucose [Mass/Vol] 159 mg/dL High 70-99 [facility] Comment on above: Performed By: #### L 501.2300, L100.0100, L500.4050, L501.5200 ####[facility] [address] [place], [address] Potassium [Moles/Vol] 3.8 mmol/L Normal 3.3-5.1 [facility] Comment on above: Result Comment: Hemo lysis present, Results??could be affected.?? Performed By: #### L 501.2300, L100.0100, L500.4050, L501.5200 ####[facility] [address] [place], [address] Sodium [Moles/Vol] 135 mmol/L Normal 133-145 [facility] Comment on above: Performed By: #### L 501.2300, L100.0100, L500.4050, L501.5200 ####[facility] [address] [place], [address] T PROT 6.3 g/dL Normal 5.9-8.4 [facility] Comment on above: Performed By: #### L 501.2300, L100.0100, L500.4050, L501.5200 ####[facility] [address] [place], [address] Urea nitrogen [Mass/Vol] 19 mg/dL Normal 4-19 [facility] Comment on above: Performed By: #### L 501.2300, L100.0100, L500.4050, L501.5200 ####[facility] [address] [place], [address] Magnesiumon 08-28-2024 Magnesium [Mass/Vol] 2.1 mg/dL Normal 1.5-2.2 [facility] Comment on above: Performed By: #### L 501.2300, L100.0100, L500.4050, L501.5200 ####[facility] [address] [place], [address] No Panel InformationOrdered By: Nicole Trujillo on 08-28-2024 20 U/L <32 [facility] Phosphoruson 08-28-2024 Phosphate [Mass/Vol] 2.7 mg/dL Normal 2.7-4.5 [facility] Comment on above: Performed By: #### L 501.2300, L100.0100, L500.4050, L501.5200 ####[facility] [address] [place], [address] Serum globulin measurementOr dered By: Nicole Trujillo on 08-28-2024 Globulin (S) [Mass/Vol] 3.0 g/dL 2.2-4.2 [facility] Serum globulin measurement 3.0 g/dL 2.2-4.2 [facility] Serum or plasma alanine hamilton otransferase (ALT) measurementOrdered By: Nicole Trujillo on 08-28-2024 ALT [Catalytic activity/Vol] 11 U/L <35 [facility] Serum or plasma albumin xiomara urement (mass/volume)Ordered By: Nicole Trujillo on 08-28-2024 Albumin [Mass/Vol] 3.2 g/dL Low 3.5-5.0 [facility] Serum or plasma albumin/glob ulin mass ratioOrdered By: Nicole Trujillo on 08-28-2024 Albumin/Globulin [Mass ratio] 1.1 {ratio} 0.9-2.4 [facility] Serum or plasma alkaline sabiha sphatase measurementOrdered By: Nicole Trujillo on 08-28-2024 ALP [Catalytic activity/Vol] 115 U/L High 35-104 [facility] Total proteinOrdered By: Jenae Trujillo on 08-28-2024 Protein [Mass/Vol] 6.3 g/dL 5.9-8.4 [facility] Total protein 6.3 g/dL 5.9-8.4 [facility] Activated partial thrombopla stin time (aPTT) in platelet poor plasma by coagulation aOrdered By: Brenda Posadas on 08-27-2024 aPTT Coag (PPP) [Time] 44.8 s High 24.1-36.2 [facility] Ankle Brachial Indexon 08-27 Ankle Brachial Index Normal [facility] Arterial study reportOrdered By: Riccardo Ng on 08-27-2024 Noninvasive arteriosclerosis study report [facility] Work Phone: Basic Metabolic Profile (BMP )on 08-27-2024 BUN/CRE 15.2 RATIO Normal 10-20 [facility] Comment on above: Performed By: #### L 500.2500 ####[facility] [address] [place], [address] Calcium [Mass/Vol] 8.8 mg/dL Normal 7.6-11.0 [facility] Comment on above: Performed By: #### L 500.2500 ####[facility] [address] [place], [address] Chloride [Moles/Vol] 103 mmol/L Normal 98-108 [facility] Comment on above: Performed By: #### L 500.2500 ####[facility] [address] [place], [address] CO2 [Moles/Vol] 24.9 mmol/L Normal 21.0-32.0 [facility] Comment on above: Performed By: #### L 500.2500 ####[facility] [address] [place], [address] Creatinine [Mass/Vol] 0.79 mg/dL Normal 0.70-1.20 [facility] Comment on above: Performed By: #### L 500.2500 ####[facility] [address] [place], [address] ECRCL 89.03 ml/min Normal 50-250 [facility] Comment on above: Performed By: #### L 500.2500 ####[facility] [address] [place], [address] GAP 10 Normal 5-15 [facility] Comment on above: Performed By: #### L 500.2500 ####[facility] [address] [place], [address] GFR/1.73 sq M.predicted among non-blacks MDRD (S/P/Bld) [Vol rate/Area] 89 mL/min/{1.73_m2} Normal >60 [facility] Comment on above: Result Comment: mL/m in/1.73m2 CKD-EPI Creatinine Equation (2020) Performed By: #### L 500.2500 ####[facility] [address] [place], [address] Glucose [Mass/Vol] 274 mg/dL High 70-99 [facility] Comment on above: Performed By: #### L 500.2500 ####[facility] [address] [place], [address] Potassium [Moles/Vol] 2.8 mmol/L Low 3.3-5.1 [facility] Comment on above: Performed By: #### L 500.2500 ####[facility] [address] [place], [address] Sodium [Moles/Vol] 137 mmol/L Normal 133-145 [facility] Comment on above: Performed By: #### L 500.2500 ####[facility] [address] [place], [address] Urea nitrogen [Mass/Vol] 12 mg/dL Normal 4-19 [facility] Comment on above: Performed By: #### L 500.2500 ####[facility] [address] [place], [address] Bedside Glucoseon 08-27-2024 FINGERSTICK GLU 203 mg/dL High 74-106 [facility] Comment on above: Result Comment: TALIA GEMENT OF PATIENT CARE PER NURSING PROTOCOL Performed By: #### L 501.080 ####[facility] [address] [place], [address] FINGERSTICK GLU 205 mg/dL High 74-106 [facility] Comment on above: Result Comment: TALIA GEMENT OF PATIENT CARE PER NURSING PROTOCOL Performed By: #### L 501.080 ####[facility] [address] [place], [address] FINGERSTICK GLU 225 mg/dL High 74-106 [facility] Comment on above: Result Comment: TALIA CHAMBERS OF PATIENT CARE PER NURSING PROTOCOL Performed By: #### L 501.080 ####[facility] [address] [place], [address] CBC W/Diff, Automatedon 08-03 Absolute Lymph 1.77 X10 3/uL Normal 0.83-4.51 [facility] Comment on above: Performed By: #### L 300.3900, L100.0100, L501.9520, L500.4050 ####[facility] [address] [place], [address] Absolute Neut 6.2 X10 3/uL Normal 2.0-7.7 [facility] Comment on above: Performed By: #### L 300.3900, L100.0100, L501.9520, L500.4050 ####[facility] [address] [place], [address] Basophils/100 WBC (Bld) 0.7 % Normal 0-1 [facility] Comment on above: Performed By: #### L 300.3900, L100.0100, L501.9520, L500.4050 ####[facility] [address] [place], [address] Eosinophils/100 WBC (Bld) 1.6 % Normal 0-5 [facility] Comment on above: Performed By: #### L 300.3900, L100.0100, L501.9520, L500.4050 ####[facility] [address] [place], [address] Erythrocyte distribution width (RBC) [Ratio] 13.7 % Normal 11.6-14.6 [facility] Comment on above: Performed By: #### L 300.3900, L100.0100, L501.9520, L500.4050 ####[facility] [address] [place], [address] Hematocrit (Bld) [Volume fraction] 33.8 % Low 37-47 [facility] Comment on above: Performed By: #### L 300.3900, L100.0100, L501.9520, L500.4050 ####[facility] [address] [place], [address] Hemoglobin (Bld) [Mass/Vol] 11.6 g/dL Low 12.0-15.0 [facility] Comment on above: Performed By: #### L 300.3900, L100.0100, L501.9520, L500.4050 ####[facility] [address] [place], [address] IG% 0.300 Normal 0.0-0.9 [facility] Comment on above: Result Comment: IG% - Immature Granulocytes (promyelocytes, myelocytes andmetamyelocytes) > 1% indicates that a LEFT SHIFT is Present. Performed By: #### L 300.3900, L100.0100, L501.9520, L500.4050 ####[facility] [address] [place], [address] Lymphocytes/100 WBC (Bld) 20.6 % Normal 19-41 [facility] Comment on above: Performed By: #### L 300.3900, L100.0100, L501.9520, L500.4050 ####[facility] [address] [place], [address] MCH (RBC) [Entitic mass] 28.2 pg Normal 27.0-32.0 [facility] Comment on above: Performed By: #### L 300.3900, L100.0100, L501.9520, L500.4050 ####[facility] [address] [place], [address] MCHC (RBC) [Mass/Vol] 34.3 g/dL Normal 32-36 [facility] Comment on above: Performed By: #### L 300.3900, L100.0100, L501.9520, L500.4050 ####[facility] [address] [place], [address] MCV (RBC) [Entitic vol] 82.0 fL Normal 81-99 [facility] Comment on above: Performed By: #### L 300.3900, L100.0100, L501.9520, L500.4050 ####[facility] [address] [place], [address] Monocytes/100 WBC (Bld) 4.4 % Normal 0-10 [facility] Comment on above: Performed By: #### L 300.3900, L100.0100, L501.9520, L500.4050 ####[facility] [address] [place], [address] Neutrophils/100 WBC (Bld) 72.4 % High 47-70 [facility] Comment on above: Performed By: #### L 300.3900, L100.0100, L501.9520, L500.4050 ####[facility] [address] [place], [address] Nucleated RBC (Bld) [#/Vol] 0 10*3/uL Normal 0-5 [facility] Comment on above: Performed By: #### L 300.3900, L100.0100, L501.9520, L500.4050 ####[facility] [address] [place], [address] Platelet mean volume (Bld) [Entitic vol] 9.2 fL Normal 6.2-12.0 [facility] Comment on above: Performed By: #### L 300.3900, L100.0100, L501.9520, L500.4050 ####[facility] [address] [place], [address] Platelets (Bld) [#/Vol] 229 10*3/uL Normal 150-450 [facility] Comment on above: Performed By: #### L 300.3900, L100.0100, L501.9520, L500.4050 ####[facility] [address] [place], [address] RBC (Bld) [#/Vol] 4.12 10*6/uL Low 4.2-5.4 [facility] Comment on above: Performed By: #### L 300.3900, L100.0100, L501.9520, L500.4050 ####[facility] [address] [place], [address] RDW SD 40.4 fl Normal 35.1-43.9 [facility] Comment on above: Performed By: #### L 300.3900, L100.0100, L501.9520, L500.4050 ####[facility] [address] [place], [address] WBC (Bld) [#/Vol] 8.6 10*3/uL Normal 4.4-11.0 [facility] Comment on above: Performed By: #### L 300.3900, L100.0100, L501.9520, L500.4050 ####[facility] [address] [place], [address] Comprehensive Metabolic Prof ilon 08-27-2024 Albumin [Mass/Vol] 3.1 g/dL Low 3.5-5.0 [facility] Comment on above: Performed By: #### L 300.3900, L100.0100, L501.9520, L500.4050 ####[facility] [address] [place], [address] Albumin/Globulin [Mass ratio] 1.1 {ratio} Normal 0.9-2.4 [facility] Comment on above: Performed By: #### L 300.3900, L100.0100, L501.9520, L500.4050 ####[facility] [address] [place], [address] ALK PHOS 117 U/L High 35-104 [facility] Comment on above: Performed By: #### L 300.3900, L100.0100, L501.9520, L500.4050 ####[facility] [address] [place], [address] ALT [Catalytic activity/Vol] 13 U/L Normal <=34 [facility] Comment on above: Performed By: #### L 300.3900, L100.0100, L501.9520, L500.4050 ####[facility] [address] [place], [address] AST [Catalytic activity/Vol] 20 U/L Normal <=31 [facility] Comment on above: Performed By: #### L 300.3900, L100.0100, L501.9520, L500.4050 ####[facility] [address] [place], [address] Bilirubin [Mass/Vol] 0.61 mg/dL Normal 0.00-1.30 [facility] Comment on above: Performed By: #### L 300.3900, L100.0100, L501.9520, L500.4050 ####[facility] [address] [place], [address] BUN/CRE 16.7 RATIO Normal 10-20 [facility] Comment on above: Performed By: #### L 300.3900, L100.0100, L501.9520, L500.4050 ####[facility] [address] [place], [address] Calcium [Mass/Vol] 8.8 mg/dL Normal 7.6-11.0 [facility] Comment on above: Performed By: #### L 300.3900, L100.0100, L501.9520, L500.4050 ####[facility] [address] [place], [address] Chloride [Moles/Vol] 102 mmol/L Normal 98-108 [facility] Comment on above: Performed By: #### L 300.3900, L100.0100, L501.9520, L500.4050 ####[facility] [address] [place], [address] CO2 [Moles/Vol] 23.8 mmol/L Normal 21.0-32.0 [facility] Comment on above: Performed By: #### L 300.3900, L100.0100, L501.9520, L500.4050 ####[facility] [address] [place], [address] Creatinine [Mass/Vol] 0.65 mg/dL Low 0.70-1.20 [facility] Comment on above: Performed By: #### L 300.3900, L100.0100, L501.9520, L500.4050 ####[facility] [address] [place], [address] ECRCL 107.70 ml/min Normal 50-250 [facility] Comment on above: Performed By: #### L 300.3900, L100.0100, L501.9520, L500.4050 ####[facility] [address] [place], [address] GAP 9 Normal 5-15 [facility] Comment on above: Performed By: #### L 300.3900, L100.0100, L501.9520, L500.4050 ####[facility] [address] [place], [address] GFR/1.73 sq M.predicted among non-blacks MDRD (S/P/Bld) [Vol rate/Area] 105 mL/min/{1.73_m2} Normal >60 [facility] Comment on above: Result Comment: mL/m in/1.73m2 CKD-EPI Creatinine Equation (2020) Performed By: #### L 300.3900, L100.0100, L501.9520, L500.4050 ####[facility] [address] [place], [address] Globulin (S) [Mass/Vol] 2.9 g/dL Normal 2.2-4.2 [facility] Comment on above: Performed By: #### L 300.3900, L100.0100, L501.9520, L500.4050 ####[facility] [address] [place], [address] Glucose [Mass/Vol] 293 mg/dL High 70-99 [facility] Comment on above: Performed By: #### L 300.3900, L100.0100, L501.9520, L500.4050 ####[facility] [address] [place], [address] Potassium [Moles/Vol] 2.5 mmol/L Invalid Interpretation Code 3.3-5.1 [facility] Comment on above: Result Comment: Crit ical Result(s) Called at:0352 by:??MARTITA FARLEY Results read back by same. Performed By: #### L 300.3900, L100.0100, L501.9520, L500.4050 ####[facility] [address] [place], [address] Sodium [Moles/Vol] 136 mmol/L Normal 133-145 [facility] Comment on above: Performed By: #### L 300.3900, L100.0100, L501.9520, L500.4050 ####[facility] [address] [place], [address] T PROT 5.9 g/dL Normal 5.9-8.4 [facility] Comment on above: Performed By: #### L 300.3900, L100.0100, L501.9520, L500.4050 ####[facility] [address] [place], [address] Urea nitrogen [Mass/Vol] 11 mg/dL Normal 4-19 [facility] Comment on above: Performed By: #### L 300.3900, L100.0100, L501.9520, L500.4050 ####[facility] [address] [place], [address] Consultation - Surgicalon Consultation - Surgical Normal [facility] Electrocardiogram reportOrde red By: Alli Brito on 08-27-2024 EKG study [facility] Work Phone: International normalized rat io (INR) calculationOrdered By: Brenda Posadas on 08-27-2024 International normalized ratio (INR) calculation 1.0 [facility] Magnetic resonance imaging r eportOrdered By: Latricia Vargas on 08-27-2024 Study report [facility] Partial Thromboplast Timeon 08-27-2024 aPTT Coag (Bld) [Time] 44.8 s High 24.1-36.2 [facility] Comment on above: Performed By: #### L 300.4310 ####[facility] [address] [place], [address] aPTT Coag (Bld) [Time] 79.3 s High 24.1-36.2 [facility] Comment on above: Performed By: #### L 300.4310 ####[facility] [address] [place], [address] Prothrombin Time w/INRon INR Coag (PPP) [Relative time] 1.0 {INR} Normal [facility] Comment on above: Performed By: #### L 300.3900, L100.0100, L501.9520, L500.4050 ####[facility] [address] [place], [address] PT Coag (PPP) [Time] 13.2 s Normal 11.7-14.9 [facility] Comment on above: Performed By: #### L 300.3900, L100.0100, L501.9520, L500.4050 ####[facility] [address] [place], [address] Prothrombin timeOrdered By: Brenda Posadas on 08-27-2024 PT Coag (PPP) [Time] 13.2 s 11.7-14.9 [facility] Prothrombin time 13.2 SECONDS 11.7-14.9 [facility] Spine Lumbar (Routine)on Spine Lumbar (Routine) Normal [facility] TSH DL <= 0.005 mIU/L QnOrde red By: Brenda Posadas on 08-27-2024 TSH Qn 1.180 uIU/mL 0.300-4.20 0 [facility] Serum or plasma thyroid stimulating hormone (TSH) measurement by high sensitivity met 1.180 uIU/mL 0.300-4.20 0 [facility] Thyroid Stim Hormone (TSH)on 08-27-2024 TSH 1.180 uIU/mL Normal 0.300-4.20 0 [facility] Comment on above: Performed By: #### L 300.3900, L100.0100, L501.9520, L500.4050 ####[facility] [address], [address] aPTT Coag (PPP) [Time]Ordere d By: Brenda Posadas on 08-27-2024 Activated partial thromboplastin time (aPTT) in platelet poor plasma by coagulation a 44.8 Seconds High 24.1-36.2 [facility] 12 Lead EKGon 08-26-2024 12 Lead EKG Normal [facility] ALP [Catalytic activity/Vol] Ordered By: Jeison Abrams on 08-26-2024 Serum or plasma alkaline phosphatase measurement 134 U/L High 35-104 [facility] ALT [Catalytic activity/Vol] Ordered By: Jeison Abrams on 08-26-2024 Serum or plasma alanine aminotransferase (ALT) measurement 14 U/L <35 [facility] Absolute neutrophil countOrd ered By: Jeison Abrams on 08-26-2024 Absolute neutrophil count 5.2 X10^3/uL 2.0-7.7 [facility] Albumin [Mass/Vol]Ordered By : Jeison Abrams on 08-26-2024 Serum or plasma albumin measurement (mass/volume) 3.6 g/dL 3.5-5.0 [facility] Anion gap [Moles/Vol]Ordered By: Jeison Abrams on 08-26-2024 Anion gap in Serum or Plasma 11 5-15 [facility] BUN/creatinine ratioOrdered By: Jeison Abrams on 08-26-2024 BUN/creatinine ratio 14.1 RATIO 10-20 [facility] Basic Metabolic Profile (BMP )on 08-26-2024 BUN/CRE 14.1 RATIO Normal 10-20 [facility] Comment on above: Performed By: #### L 300.3900, L503.7505, L500.2500, L100.0100, L300.4310, L503.6005, L500.3400 ####[facility] [address] [place], [place], [address] Calcium [Mass/Vol] 9.2 mg/dL Normal 7.6-11.0 [facility] Comment on above: Performed By: #### L 300.3900, L503.7505, L500.2500, L100.0100, L300.4310, L503.6005, L500.3400 ####[facility] [address] [place], [address] Chloride [Moles/Vol] 102 mmol/L Normal 98-108 [facility] Comment on above: Performed By: #### L 300.3900, L503.7505, L500.2500, L100.0100, L300.4310, L503.6005, L500.3400 ####[facility] [address] [place], [address] CO2 [Moles/Vol] 22.3 mmol/L Normal 21.0-32.0 [facility] Comment on above: Performed By: #### L 300.3900, L503.7505, L500.2500, L100.0100, L300.4310, L503.6005, L500.3400 ####[facility] [address] [place], [address] Creatinine [Mass/Vol] 0.74 mg/dL Normal 0.70-1.20 [facility] Comment on above: Performed By: #### L 300.3900, L503.7505, L500.2500, L100.0100, L300.4310, L503.6005, L500.3400 ####[facility] [address] [place], [address] ECRCL 97.71 ml/min Normal 50-250 [facility] Comment on above: Performed By: #### L 300.3900, L503.7505, L500.2500, L100.0100, L300.4310, L503.6005, L500.3400 ####[facility] [address] [place], [address] GAP 11 Normal 5-15 [facility] Comment on above: Performed By: #### L 300.3900, L503.7505, L500.2500, L100.0100, L300.4310, L503.6005, L500.3400 ####[facility] [address] [place], [address] GFR/1.73 sq M.predicted among non-blacks MDRD (S/P/Bld) [Vol rate/Area] 97 mL/min/{1.73_m2} Normal >60 [facility] Comment on above: Result Comment: mL/m in/1.73m2 CKD-EPI Creatinine Equation (2020) Performed By: #### L 300.3900, L503.7505, L500.2500, L100.0100, L300.4310, L503.6005, L500.3400 ####[facility] [address] [place], [address] Glucose [Mass/Vol] 315 mg/dL High 70-99 [facility] Comment on above: Performed By: #### L 300.3900, L503.7505, L500.2500, L100.0100, L300.4310, L503.6005, L500.3400 ####[facility] [address] [place], [address] Potassium [Moles/Vol] 3.4 mmol/L Normal 3.3-5.1 [facility] Comment on above: Result Comment: Hemo lysis present, Results??could be affected.?? Performed By: #### L 300.3900, L503.7505, L500.2500, L100.0100, L300.4310, L503.6005, L500.3400 ####[facility] [address] [place], [address] Sodium [Moles/Vol] 135 mmol/L Normal 133-145 [facility] Comment on above: Performed By: #### L 300.3900, L503.7505, L500.2500, L100.0100, L300.4310, L503.6005, L500.3400 ####[facility] [address] [place], [address] Urea nitrogen [Mass/Vol] 10 mg/dL Normal 4-19 [facility] Comment on above: Performed By: #### L 300.3900, L503.7505, L500.2500, L100.0100, L300.4310, L503.6005, L500.3400 ####[facility] [address] [place], [address] Basophil percentageOrdered B y: Jeison Abrams on 08-26-2024 Basophil percentage 0.7 % 0-1 [facility] Bedside Glucoseon 08-26-2024 FINGERSTICK GLU 193 mg/dL High 74-106 [facility] Comment on above: Result Comment: TALIA CHAMBERS OF PATIENT CARE PER NURSING PROTOCOL Performed By: #### L 501.080 ####[facility] [address] [place], [address] Bilirubin directOrdered By: Jeison Abrams on 08-26-2024 Bilirubin.direct [Mass/Vol] 0.08 mg/dL 0.00-0.30 [facility] Bilirubin, totalOrdered By: Jeison Abrams on 08-26-2024 Bilirubin, total 0.52 mg/dL 0.00-1.30 [facility] Bilirubin.direct [Mass/Vol]O rdered By: Jeison Abrams on 08-26-2024 Bilirubin direct 0.08 mg/dL 0.00-0.30 [facility] CBC W/Diff, Automatedon 08-03 Absolute Lymph 1.57 X10 3/uL Normal 0.83-4.51 [facility] Comment on above: Performed By: #### L 300.3900, L503.7505, L500.2500, L100.0100, L300.4310, L503.6005, L500.3400 ####[facility] [address] [place], [address](809) Absolute Neut 5.2 X10 3/uL Normal 2.0-7.7 [facility] Comment on above: Performed By: #### L 300.3900, L503.7505, L500.2500, L100.0100, L300.4310, L503.6005, L500.3400 ####[facility] [address] [place], [address] Basophils/100 WBC (Bld) 0.7 % Normal 0-1 [facility] Comment on above: Performed By: #### L 300.3900, L503.7505, L500.2500, L100.0100, L300.4310, L503.6005, L500.3400 ####[facility] [address] [place], [address] Eosinophils/100 WBC (Bld) 2.8 % Normal 0-5 [facility] Comment on above: Performed By: #### L 300.3900, L503.7505, L500.2500, L100.0100, L300.4310, L503.6005, L500.3400 ####[facility] [address] [place], [address] Erythrocyte distribution width (RBC) [Ratio] 13.6 % Normal 11.6-14.6 [facility] Comment on above: Performed By: #### L 300.3900, L503.7505, L500.2500, L100.0100, L300.4310, L503.6005, L500.3400 ####[facility] [address] [place], [address] Hematocrit (Bld) [Volume fraction] 40.6 % Normal 37-47 [facility] Comment on above: Performed By: #### L 300.3900, L503.7505, L500.2500, L100.0100, L300.4310, L503.6005, L500.3400 ####[facility] [address] [place], [address] Hemoglobin (Bld) [Mass/Vol] 13.7 g/dL Normal 12.0-15.0 [facility] Comment on above: Performed By: #### L 300.3900, L503.7505, L500.2500, L100.0100, L300.4310, L503.6005, L500.3400 ####[facility] [address] [place], [address] IG% 0.300 Normal 0.0-0.9 [facility] Comment on above: Result Comment: IG% - Immature Granulocytes (promyelocytes, myelocytes andmetamyelocytes) > 1% indicates that a LEFT SHIFT is Present. Performed By: #### L 300.3900, L503.7505, L500.2500, L100.0100, L300.4310, L503.6005, L500.3400 ####[facility] [address] [place], [address] Lymphocytes/100 WBC (Bld) 20.9 % Normal 19-41 [facility] Comment on above: Performed By: #### L 300.3900, L503.7505, L500.2500, L100.0100, L300.4310, L503.6005, L500.3400 ####[facility] [address] [place], [address] MCH (RBC) [Entitic mass] 27.8 pg Normal 27.0-32.0 [facility] Comment on above: Performed By: #### L 300.3900, L503.7505, L500.2500, L100.0100, L300.4310, L503.6005, L500.3400 ####[facility] [address] [place], [address] MCHC (RBC) [Mass/Vol] 33.7 g/dL Normal 32-36 [facility] Comment on above: Performed By: #### L 300.3900, L503.7505, L500.2500, L100.0100, L300.4310, L503.6005, L500.3400 ####[facility] [address] [place], [address] MCV (RBC) [Entitic vol] 82.4 fL Normal 81-99 [facility] Comment on above: Performed By: #### L 300.3900, L503.7505, L500.2500, L100.0100, L300.4310, L503.6005, L500.3400 ####[facility] [address] [place], [address] Monocytes/100 WBC (Bld) 5.7 % Normal 0-10 [facility] Comment on above: Performed By: #### L 300.3900, L503.7505, L500.2500, L100.0100, L300.4310, L503.6005, L500.3400 ####[facility] [address] [place], [address] Neutrophils/100 WBC (Bld) 69.6 % Normal 47-70 [facility] Comment on above: Performed By: #### L 300.3900, L503.7505, L500.2500, L100.0100, L300.4310, L503.6005, L500.3400 ####[facility] [address] [place], [address] Nucleated RBC (Bld) [#/Vol] 0 10*3/uL Normal 0-5 [facility] Comment on above: Performed By: #### L 300.3900, L503.7505, L500.2500, L100.0100, L300.4310, L503.6005, L500.3400 ####[facility] [address] [place], [address] Platelet mean volume (Bld) [Entitic vol] 9.1 fL Normal 6.2-12.0 [facility] Comment on above: Performed By: #### L 300.3900, L503.7505, L500.2500, L100.0100, L300.4310, L503.6005, L500.3400 ####[facility] [address] [place], [address] Platelets (Bld) [#/Vol] 225 10*3/uL Normal 150-450 [facility] Comment on above: Performed By: #### L 300.3900, L503.7505, L500.2500, L100.0100, L300.4310, L503.6005, L500.3400 ####[facility] [address] [place], [address] RBC (Bld) [#/Vol] 4.93 10*6/uL Normal 4.2-5.4 [facility] Comment on above: Performed By: #### L 300.3900, L503.7505, L500.2500, L100.0100, L300.4310, L503.6005, L500.3400 ####[facility] [address] [place], [address] RDW SD 40.2 fl Normal 35.1-43.9 [facility] Comment on above: Performed By: #### L 300.3900, L503.7505, L500.2500, L100.0100, L300.4310, L503.6005, L500.3400 ####[facility] [address] [place], [address] WBC (Bld) [#/Vol] 7.5 10*3/uL Normal 4.4-11.0 [facility] Comment on above: Performed By: #### L 300.3900, L503.7505, L500.2500, L100.0100, L300.4310, L503.6005, L500.3400 ####[facility] [address] [place], [address] CTA LWR EXTR W/O W/DYEon CTA LWR EXTR W/O W/DYE Normal [facility] Calcium [Mass/Vol]Ordered By : Jeison Abrams on 08-26-2024 Serum or plasma calcium measurement (mass/volume) 9.2 mg/dL 7.6-11.0 [facility] Carbon dioxide, total [Moles /volume] in Central venous bloodOrdered By: Jeison Abrams on 08-26-2024 Carbon dioxide, total [Moles/volume] in Central venous blood 22.3 mmol/L 21.0-32.0 [facility] Chest 1 View (Portable)on Chest 1 View (Portable) Normal [facility] Chloride assayOrdered By: Tristan Abrams on 08-26-2024 Chloride assay 102 mmol/L 98-108 [facility] Creatinine [Mass/Vol]Ordered By: Jeison Abrams on 08-26-2024 Serum creatinine measurement (mass/volume) 0.74 mg/dL 0.70-1.20 [facility] Emergency Department Summary on 08-26-2024 Emergency Department Summary Normal [facility] Eosinophil percentageOrdered By: Jeison Abrams on 08-26-2024 Eosinophil percentage 2.8 % 0-5 [facility] Erythrocyte distribution wid th (RBC) [Entitic vol]Ordered By: Jeison Abrams on 08-26-2024 Erythrocyte distribution width standard deviation 40.2 fl 35.1-43.9 [facility] Erythrocyte distribution wid th (RBC) [Ratio]Ordered By: Jeison Abrams on 08-26-2024 Erythrocyte distribution width ratio 13.6 % 11.6-14.6 [facility] Estimation of creatinine sylvain aranceOrdered By: Jeison Abrams on 08-26-2024 Estimation of creatinine clearance 97.71 ml/min 50-250 [facility] GFR/1.73 sq M.predicted estephanie g non-blacks MDRD (S/P/Bld) [Vol rate/Area]Ordered By: Jeison Abrams on 08-26-2024 Glomerular filtration rate (GFR) estimation/1.73 sq m using serum, plasma, or whole b 97 >60 [facility] Glucose [Mass/Vol]Ordered By : Jeison Abrams on 08-26-2024 Serum glucose measurement (mass/volume) 315 mg/dL High 70-99 [facility] H AND P Exam - Hospitaliston 08-26-2024 H&P Exam - Hospitalist Normal [facility] Hematocrit Auto (Bld) [Volum e fraction]Ordered By: Jeison Abrams on 08-26-2024 Automated blood hematocrit (percentage) 40.6 % 37-47 [facility] Hemoglobin measurementOrdere d By: Jeison Abrams on 08-26-2024 Hemoglobin measurement 13.7 g/dL 12.0-15.0 [facility] Immature granulocytes/100 WB C Auto (Bld)Ordered By: Jeison Abrams on 08-26-2024 Automated immature granulocyte percentage 0.300 % 0.0-0.9 [facility] International normalized rat io (INR) calculationOrdered By: Vaughn Daugherty on 08-26-2024 International normalized ratio (INR) calculation 1.0 [facility] L503.7505on 08-26-2024 Natriuretic peptide B (Bld) [Mass/Vol] 1489 pg/mL High <=900 [facility] Comment on above: Result Comment: Hear t Failure Unlikely: < 300 pg/mLHeart Failure Likely< 50 Years: > 450 pg/mL50-75 Years: > 900 pg/mL>75 Years: > 1800 pg/mL Performed By: #### L 300.3900, L503.7505, L500.2500, L100.0100, L300.4310, L503.6005, L500.3400 ####[facility] [address] [place], [place], [id number] Lactic Acidon 08-26-2024 Lactate [Moles/Vol] 1.5 mmol/L Normal 0.0-2.0 [facility] Comment on above: Order Comment: Y Performed By: #### L 300.3900, L503.7505, L500.2500, L100.0100, L300.4310, L503.6005, L500.3400 ####[facility] [address] [place], [address] Lactic acid measurementOrder ed By: Jeison Abrams on 08-26-2024 Lactic acid measurement 1.5 mmol/L 0.0-2.0 [facility] Liver Profileon 08-26-2024 Albumin [Mass/Vol] 3.6 g/dL Normal 3.5-5.0 [facility] Comment on above: Performed By: #### L 300.3900, L503.7505, L500.2500, L100.0100, L300.4310, L503.6005, L500.3400 ####[facility] [address] [place], [place], [id number] ALK PHOS 134 U/L High 35-104 [facility] Comment on above: Performed By: #### L 300.3900, L503.7505, L500.2500, L100.0100, L300.4310, L503.6005, L500.3400 ####[facility] [address] [place], [place], [id number] ALT [Catalytic activity/Vol] 14 U/L Normal <=34 [facility] Comment on above: Performed By: #### L 300.3900, L503.7505, L500.2500, L100.0100, L300.4310, L503.6005, L500.3400 ####[facility] [address] [place], [place], [id number] AST [Catalytic activity/Vol] 27 U/L Normal <=31 [facility] Comment on above: Result Comment: Hemo lysis present, Results??could be affected.?? Performed By: #### L 300.3900, L503.7505, L500.2500, L100.0100, L300.4310, L503.6005, L500.3400 ####[facility] [address] [place], [place], [id number] Bilirubin [Mass/Vol] 0.52 mg/dL Normal 0.00-1.30 [facility] Comment on above: Performed By: #### L 300.3900, L503.7505, L500.2500, L100.0100, L300.4310, L503.6005, L500.3400 ####[facility] [address] [place], [address] Bilirubin.direct [Mass/Vol] 0.08 mg/dL Normal 0.00-0.30 [facility] Comment on above: Result Comment: Hemo lysis present, Results??could be affected.?? Performed By: #### L 300.3900, L503.7505, L500.2500, L100.0100, L300.4310, L503.6005, L500.3400 ####[facility] [address] [place], [address] Globulin (S) [Mass/Vol] 3.4 g/dL Normal 2.2-4.2 [facility] Comment on above: Performed By: #### L 300.3900, L503.7505, L500.2500, L100.0100, L300.4310, L503.6005, L500.3400 ####[facility] [address], [address] T PROT 7.0 g/dL Normal 5.9-8.4 [facility] Comment on above: Performed By: #### L 300.3900, L503.7505, L500.2500, L100.0100, L300.4310, L503.6005, L500.3400 ####[facility] [address] [place], [address] Lymphocytes Auto (Unsp spec) [#/Vol]Ordered By: Jeison Abrams on 08-26-2024 Absolute lymphocyte count 1.57 X10^3/uL 0.83-4.51 [facility] Lymphocytes/100 WBC Auto (Un sp spec)Ordered By: Jeison Abrams on 08-26-2024 Automated lymphocyte count as percentage of total leukocytes 20.9 % 19-41 [facility] MCV (RBC) [Entitic vol]Order ed By: Jeison Abrams on 08-26-2024 MCV (mean corpuscular volume) determination 82.4 fL 81-99 [facility] Mean corpuscular hemoglobin (MCH) determinationOrdered By: Jeison Abrams on 08-26-2024 Mean corpuscular hemoglobin (MCH) determination 27.8 pg 27.0-32.0 [facility] Mean corpuscular hemoglobin concentration (MCHC) determinationOrdered By: Jeison Abrams on 08-26-2024 Mean corpuscular hemoglobin concentration (MCHC) determination 33.7 g/dL 32-36 [facility] Mean platelet volume determi nationOrdered By: Jeison Abrams on 08-26-2024 Mean platelet volume determination 9.1 fl 6.2-12.0 [facility] Monocyte percentageOrdered B y: Jeison Abrams on 08-26-2024 Monocyte percentage 5.7 % 0-10 [facility] Neutrophil percentageOrdered By: Jeison Abrams on 08-26-2024 Neutrophil percentage 69.6 % 47-70 [facility] No Panel InformationOrdered By: Jeison Abrams on 08-26-2024 27 U/L <32 [facility] 1489 pg/mL High <900 [facility] Nucleated red blood cell per centageOrdered By: Jeison Abrams on 08-26-2024 Nucleated red blood cell percentage 0 % 0-5 [facility] Partial Thromboplast Timeon 08-26-2024 aPTT Coag (Bld) [Time] 26.5 s Normal 24.1-36.2 [facility] Comment on above: Performed By: #### L 300.4310, L300.3900 ####[facility] [address] [place], [address] aPTT Coag (Bld) [Time] 26.8 s Normal 24.1-36.2 [facility] Comment on above: Performed By: #### L 300.3900, L503.7505, L500.2500, L100.0100, L300.4310, L503.6005, L500.3400 ####[facility] [address] [place], [address] Platelet countOrdered By: Tristan Abrams on 08-26-2024 Platelet count 225 K/mm3 150-450 [facility] Potassium (Unsp spec) [Mass/ Vol]Ordered By: Jeison Abrams on 08-26-2024 Potassium measurement (mass/volume) 3.4 mmol/L 3.3-5.1 [facility] Prothrombin Time w/INRon INR Coag (PPP) [Relative time] 1.0 {INR} Normal [facility] Comment on above: Performed By: #### L 300.4310, L300.3900 ####[facility] [address] [place], [address] PT Coag (PPP) [Time] 12.8 s Normal 11.7-14.9 [facility] Comment on above: Performed By: #### L 300.4310, L300.3900 ####[facility] [address] [place], [address] INR Coag (PPP) [Relative time] 0.9 {INR} Normal [facility] Comment on above: Performed By: #### L 300.3900, L503.7505, L500.2500, L100.0100, L300.4310, L503.6005, L500.3400 ####[facility] [address] [place], [address] PT Coag (PPP) [Time] 12.3 s Normal 11.7-14.9 [facility] Comment on above: Performed By: #### L 300.3900, L503.7505, L500.2500, L100.0100, L300.4310, L503.6005, L500.3400 ####[facility] [address] [place], [address] Prothrombin timeOrdered By: Vaughn Daugherty on 08-26-2024 Prothrombin time 12.8 SECONDS 11.7-14.9 [facility] RBC Auto (Bld) [#/Vol]Ordere d By: Jeison Abrams on 08-26-2024 Automated blood erythrocyte count 4.93 M/mm3 4.2-5.4 [facility] Serum globulin measurementOr dered By: Jeison Abrams on 08-26-2024 Serum globulin measurement 3.4 g/dL 2.2-4.2 [facility] Sodium levelOrdered By: Sj Abrams on 08-26-2024 Sodium level 135 mmol/L 133-145 [facility] Total proteinOrdered By: Gualberto Abrams on 08-26-2024 Total protein 7.0 g/dL 5.9-8.4 [facility] Urea nitrogen [Mass/Vol]Orde red By: Jeison Abrams on 08-26-2024 Serum or plasma urea nitrogen measurement (mass/volume) 10 mg/dL 4-19 [facility] Venous Duplex US, Unilateral on 08-26-2024 Venous Duplex US, Unilateral Normal [facility] Venous duplex ultrasound rep ortOrdered By: Riccardo Ng on 08-26-2024 US Vein [facility] Work Phone: White blood cell (WBC) count Ordered By: Jeison Abrams on 08-26-2024 White blood cell (WBC) count 7.5 K/mm3 4.4-11.0 [facility] aPTT Coag (PPP) [Time]Ordere d By: Vaughn Daugherty on 08-26-2024 Activated partial thromboplastin time (aPTT) in platelet poor plasma by coagulation a 26.5 Seconds 24.1-36.2 [facility] Urine Cultureon 08-04-2024 URC Normal [facility] Comment on above: Performed By: #### M 100.8503 ####[facility] [address] [place], [address] ALP [Catalytic activity/Vol] Ordered By: Riccardo Hillman on 08-01-2024 Serum or plasma alkaline phosphatase measurement 162 U/L High 35-104 [facility] ALT [Catalytic activity/Vol] Ordered By: Riccardo Hillman on 08-01-2024 Serum or plasma alanine aminotransferase (ALT) measurement 12 U/L <35 [facility] Abdomen/Pelvis W IV Cont ONL Yon 08-01-2024 Abdomen/Pelvis W IV Cont ONLY Normal [facility] Absolute neutrophil countOrd ered By: Riccardo Hillman on 08-01-2024 Absolute neutrophil count 11.1 X10^3/uL High 2.0-7.7 [facility] Acetone Serumon 08-01-2024 ACETONE SERUM Negative Normal NEG [facility] Comment on above: Performed By: #### L 501.6900 ####[facility] [address] [place], [address] Acetone [Mass/Vol]Ordered By : Riccardo Hillman on 08-01-2024 Serum acetone measurement Negative NEG [facility] Albumin [Mass/Vol]Ordered By : Riccardo Hillman on 08-01-2024 Serum or plasma albumin measurement (mass/volume) 4.2 g/dL 3.5-5.0 [facility] Albumin/Globulin [Mass ratio ]Ordered By: Riccardo Hillman on 08-01-2024 Serum or plasma albumin/globulin mass ratio 1.0 RATIO 0.9-2.4 [facility] Anion gap [Moles/Vol]Ordered By: Riccardo Hillman on 08-01-2024 Serum or plasma anion gap determination (moles/volume) 17 High 5-15 [facility] BUN/creatinine ratioOrdered By: Riccardo Hillman on 08-01-2024 BUN/creatinine ratio 11.8 RATIO 10-20 [facility] Bacteria LM.HPF (Urine sed) [#/Area]Ordered By: Riccardo Hillman on 08-01-2024 Urine sediment bacteria count by microscopy (number/high power field) 4+ /hpf None Seen [facility] Basophil percentageOrdered B y: Riccardo Hillman on 08-01-2024 Basophil percentage 0.5 % 0-1 [facility] Bedside Glucoseon 08-01-2024 FINGERSTICK GLU 225 mg/dL High 74-106 [facility] Comment on above: Result Comment: TALIA CHAMBERS OF PATIENT CARE PER NURSING PROTOCOL Performed By: #### L 501.080 ####[facility] [address] [place], [address] Bilirubin, totalOrdered By: Riccardo Hillman on 08-01-2024 Bilirubin, total 1.23 mg/dL 0.00-1.30 [facility] CBC W/Diff, Automatedon 07-06 Absolute Lymph 1.55 X10 3/uL Normal 0.83-4.51 [facility] Comment on above: Performed By: #### L 501.2450, L500.4050, L100.0100 ####[facility] [address] [place], [address] Absolute Neut 11.1 X10 3/uL High 2.0-7.7 [facility] Comment on above: Performed By: #### L 501.2450, L500.4050, L100.0100 ####[facility] [address] [place], [address] Basophils/100 WBC (Bld) 0.5 % Normal 0-1 [facility] Comment on above: Performed By: #### L 501.2450, L500.4050, L100.0100 ####[facility] [address] [place], [address] Eosinophils/100 WBC (Bld) 0.2 % Normal 0-5 [facility] Comment on above: Performed By: #### L 501.2450, L500.4050, L100.0100 ####[facility] [address] [place], [address] Erythrocyte distribution width (RBC) [Ratio] 14.1 % Normal 11.6-14.6 [facility] Comment on above: Performed By: #### L 501.2450, L500.4050, L100.0100 ####[facility] [address] [place], [address] Hematocrit (Bld) [Volume fraction] 40.8 % Normal 37-47 [facility] Comment on above: Performed By: #### L 501.2450, L500.4050, L100.0100 ####[facility] [address] [place], [address] Hemoglobin (Bld) [Mass/Vol] 13.6 g/dL Normal 12.0-15.0 [facility] Comment on above: Performed By: #### L 501.2450, L500.4050, L100.0100 ####[facility] [address] [place], [address] IG% 0.300 Normal 0.0-0.9 [facility] Comment on above: Result Comment: IG% - Immature Granulocytes (promyelocytes, myelocytes andmetamyelocytes) > 1% indicates that a LEFT SHIFT is Present. Performed By: #### L 501.2450, L500.4050, L100.0100 ####[facility] [address] [place], [address] Lymphocytes/100 WBC (Bld) 11.7 % Low 19-41 [facility] Comment on above: Performed By: #### L 501.2450, L500.4050, L100.0100 ####[facility] [address] [place], [address] MCH (RBC) [Entitic mass] 27.7 pg Normal 27.0-32.0 [facility] Comment on above: Performed By: #### L 501.2450, L500.4050, L100.0100 ####[facility] [address] [place], [address] MCHC (RBC) [Mass/Vol] 33.3 g/dL Normal 32-36 [facility] Comment on above: Performed By: #### L 501.2450, L500.4050, L100.0100 ####[facility] [address] [place], [address] MCV (RBC) [Entitic vol] 83.1 fL Normal 81-99 [facility] Comment on above: Performed By: #### L 501.2450, L500.4050, L100.0100 ####[facility] [address] [place], [address] Monocytes/100 WBC (Bld) 3.4 % Normal 0-10 [facility] Comment on above: Performed By: #### L 501.2450, L500.4050, L100.0100 ####[facility] [address] [place], [address] Neutrophils/100 WBC (Bld) 83.9 % High 47-70 [facility] Comment on above: Performed By: #### L 501.2450, L500.4050, L100.0100 ####[facility] [address] [place], [address] Nucleated RBC (Bld) [#/Vol] 0 10*3/uL Normal 0-5 [facility] Comment on above: Performed By: #### L 501.2450, L500.4050, L100.0100 ####[facility] [address] [place], [address] Platelet mean volume (Bld) [Entitic vol] 9.9 fL Normal 6.2-12.0 [facility] Comment on above: Performed By: #### L 501.2450, L500.4050, L100.0100 ####[facility] [address] [place], [address] Platelets (Bld) [#/Vol] 338 10*3/uL Normal 150-450 [facility] Comment on above: Performed By: #### L 501.2450, L500.4050, L100.0100 ####[facility] [address] [place], [address] RBC (Bld) [#/Vol] 4.91 10*6/uL Normal 4.2-5.4 [facility] Comment on above: Performed By: #### L 501.2450, L500.4050, L100.0100 ####[facility] [address] [place], [address] RDW SD 42.2 fl Normal 35.1-43.9 [facility] Comment on above: Performed By: #### L 501.2450, L500.4050, L100.0100 ####[facility] [address] [place], [address] WBC (Bld) [#/Vol] 13.3 10*3/uL High 4.4-11.0 [facility] Comment on above: Performed By: #### L 501.2450, L500.4050, L100.0100 ####[facility] [address] [place], [address] Calcium [Mass/Vol]Ordered By : Riccardo Hillman on 08-01-2024 Serum or plasma calcium measurement (mass/volume) 9.8 mg/dL 7.6-11.0 [facility] Carbon dioxide measurementOr dered By: Riccardo Hillman on 08-01-2024 Carbon dioxide measurement 22.7 mmol/L 22.0-29.0 [facility] Chloride measurementOrdered By: Riccardo Hillman on 08-01-2024 Chloride measurement 93 mmol/L Low 96-108 [facility] Clarity (U)Ordered By: Riccardo Hillman on 08-01-2024 Urine clarity Cloudy Clear [facility] Color (U)Ordered By: Riccardo latham on 08-01-2024 Urine color determination Yellow Yellow [facility] Comprehensive Metabolic Prof ilon 08-01-2024 Albumin [Mass/Vol] 4.2 g/dL Normal 3.5-5.0 [facility] Comment on above: Performed By: #### L 501.2450, L500.4050, L100.0100 ####[facility] [address] [place], [address] Albumin/Globulin [Mass ratio] 1.0 {ratio} Normal 0.9-2.4 [facility] Comment on above: Performed By: #### L 501.2450, L500.4050, L100.0100 ####[facility] [address] [place], [address] ALK PHOS 162 U/L High 35-104 [facility] Comment on above: Performed By: #### L 501.2450, L500.4050, L100.0100 ####[facility] [address] [place], [address] ALT [Catalytic activity/Vol] 12 U/L Normal <=34 [facility] Comment on above: Performed By: #### L 501.2450, L500.4050, L100.0100 ####[facility] [address] [place], [address] Anion gap [Moles/Vol] 17 mmol/L High 5-15 [facility] Comment on above: Performed By: #### L 501.2450, L500.4050, L100.0100 ####[facility] [address] [place], [address] AST [Catalytic activity/Vol] 24 U/L Normal <=31 [facility] Comment on above: Performed By: #### L 501.2450, L500.4050, L100.0100 ####[facility] [address] [place], [address] Bilirubin [Mass/Vol] 1.23 mg/dL Normal 0.00-1.30 [facility] Comment on above: Performed By: #### L 501.2450, L500.4050, L100.0100 ####[facility] [address] [place], [address] BUN/CRE 11.8 RATIO Normal 10-20 [facility] Comment on above: Performed By: #### L 501.2450, L500.4050, L100.0100 ####[facility] [address] [place], [address] Calcium [Mass/Vol] 9.8 mg/dL Normal 7.6-11.0 [facility] Comment on above: Performed By: #### L 501.2450, L500.4050, L100.0100 ####[facility] [address] [place], [address] Chloride [Moles/Vol] 93 mmol/L Low 96-108 [facility] Comment on above: Performed By: #### L 501.2450, L500.4050, L100.0100 ####[facility] [address] [place], [address] CO2 [Moles/Vol] 22.7 mmol/L Normal 22.0-29.0 [facility] Comment on above: Performed By: #### L 501.2450, L500.4050, L100.0100 ####[facility] [address] [place], [address] Creatinine [Mass/Vol] 0.79 mg/dL Normal 0.70-1.20 [facility] Comment on above: Performed By: #### L 501.2450, L500.4050, L100.0100 ####[facility] [address] [place], [address] ECRCL 91.16 ml/min Normal [facility] Comment on above: Performed By: #### L 501.2450, L500.4050, L100.0100 ####[facility] [address] [place], [address] GFR/1.73 sq M.predicted among non-blacks MDRD (S/P/Bld) [Vol rate/Area] 90 mL/min/{1.73_m2} Normal >60 [facility] Comment on above: Result Comment: mL/m in/1.73m2 CKD-EPI Creatinine Equation (2020) Performed By: #### L 501.2450, L500.4050, L100.0100 ####[facility] [address] [place], [address] Globulin (S) [Mass/Vol] 4.0 g/dL Normal 2.2-4.2 [facility] Comment on above: Performed By: #### L 501.2450, L500.4050, L100.0100 ####[facility] [address] [place], [address] Glucose [Mass/Vol] 410 mg/dL High 70-99 [facility] Comment on above: Performed By: #### L 501.2450, L500.4050, L100.0100 ####[facility] [address] [place], [address] Potassium [Moles/Vol] 3.5 mmol/L Normal 3.3-5.1 [facility] Comment on above: Performed By: #### L 501.2450, L500.4050, L100.0100 ####[facility] [address] [place], [address] Sodium [Moles/Vol] 132 mmol/L Low 133-145 [facility] Comment on above: Performed By: #### L 501.2450, L500.4050, L100.0100 ####[facility] [address] [place], [address] T PROT 8.1 g/dL Normal 5.9-8.4 [facility] Comment on above: Performed By: #### L 501.2450, L500.4050, L100.0100 ####[facility] [address] [place], [address] Urea nitrogen [Mass/Vol] 9 mg/dL Normal 4-19 [facility] Comment on above: Performed By: #### L 501.2450, L500.4050, L100.0100 ####[facility] [address] [place], [address] Creatinine [Mass/Vol]Ordered By: Riccardo Hillman on 08-01-2024 Serum creatinine measurement (mass/volume) 0.79 mg/dL 0.70-1.20 [facility] Emergency Department Summary on 08-01-2024 Emergency Department Summary Normal [facility] Eosinophil percentageOrdered By: Riccardo Hillman on 08-01-2024 Eosinophil percentage 0.2 % 0-5 [facility] Erythrocyte distribution wid th (RBC) [Ratio]Ordered By: Riccardo Hillman on 08-01-2024 Erythrocyte distribution width ratio 14.1 % 11.6-14.6 [facility] Erythrocyte distribution wid th standard deviationOrdered By: Riccardo Hillman on 08-01-2024 Erythrocyte distribution width standard deviation 42.2 fl 35.1-43.9 [facility] Estimation of creatinine sylvain aranceOrdered By: Riccardo Hillman on 08-01-2024 Estimation of creatinine clearance 91.16 ml/min [facility] GFR/1.73 sq M.predicted estephanie g non-blacks MDRD (S/P/Bld) [Vol rate/Area]Ordered By: Riccardo Hillman on 08-01-2024 Glomerular filtration rate (GFR) estimation/1.73 sq m using serum, plasma, or whole b 90 >60 [facility] Glucose Ql (U)Ordered By: Bertram Hillman on 08-01-2024 Urine glucose detection 1000 mg/dl High Normal [facility] Glucose [Mass/Vol]Ordered By : Riccardo Hillman on 08-01-2024 Serum glucose measurement (mass/volume) 410 mg/dL High 70-99 [facility] Glucose measurement at bedsi deOrdered By: Riccardo Hillman on 08-01-2024 Glucose measurement at bedside 225 mg/dL High 74-106 [facility] Hematocrit Auto (Bld) [Volum e fraction]Ordered By: Riccardo Hillman on 08-01-2024 Automated blood hematocrit (percentage) 40.8 % 37-47 [facility] Hemoglobin measurementOrdere d By: Riccardo Hillman on 08-01-2024 Hemoglobin measurement 13.6 g/dL 12.0-15.0 [facility] Immature granulocytes/100 WB C Auto (Bld)Ordered By: Riccardo Hillman on 08-01-2024 Automated immature granulocyte percentage 0.300 % 0.0-0.9 [facility] Leukocyte esterase Test stri p Ql (U)Ordered By: Riccardo Hillman on 08-01-2024 Urine leukocyte esterase detection by dipstick 500 /ul High Negative [facility] Lipaseon 08-01-2024 Lipase [Catalytic activity/Vol] 17 U/L Normal 13-75 [facility] Comment on above: Result Comment: Gege edgar note:LIPASE revised reference range effective 22.New Lipase methodology. Expected to produce lower valuesthan the previous assay method.NEW Reference Range: 13 - 75 U/L Performed By: #### L 501.2450, L500.4050, L100.0100 ####[facility] [address] [place], [address] Lipase measurementOrdered By : Riccardo Hillman on 08-01-2024 Lipase measurement 17 U/L 13-75 [facility] Lymphocytes Auto (Unsp spec) [#/Vol]Ordered By: Riccardo Hillman on 08-01-2024 Absolute lymphocyte count 1.55 X10^3/uL 0.83-4.51 [facility] Lymphocytes/100 WBC Auto (Un sp spec)Ordered By: Riccardo Hillman on 08-01-2024 Automated lymphocyte count as percentage of total leukocytes 11.7 % Low 19-41 [facility] MCV (RBC) [Entitic vol]Order ed By: Riccardo Hillman on 08-01-2024 MCV (mean corpuscular volume) determination 83.1 fL 81-99 [facility] Mean corpuscular hemoglobin (MCH) determinationOrdered By: Riccardo Hillman on 08-01-2024 Mean corpuscular hemoglobin (MCH) determination 27.7 pg 27.0-32.0 [facility] Mean corpuscular hemoglobin concentration (MCHC) determinationOrdered By: Riccardo Hillman on 08-01-2024 Mean corpuscular hemoglobin concentration (MCHC) determination 33.3 g/dL 32-36 [facility] Mean platelet volume determi nationOrdered By: Riccardo Hillman on 08-01-2024 Mean platelet volume determination 9.9 fl 6.2-12.0 [facility] Microscopic analysis of urin e for red blood cells (RBC)Ordered By: Riccardo Hillman on 08-01-2024 Microscopic analysis of urine for red blood cells (RBC) 0-5 SEEN /hpf 5-10 [facility] Monocyte percentageOrdered B y: Riccardo Hillman on 08-01-2024 Monocyte percentage 3.4 % 0-10 [facility] Mucus LM Ql (Urine sed)Order ed By: Riccardo Hillman on 08-01-2024 Mucus detection in urine sediment by light microscopy 0 SEEN /hpf [facility] Neutrophil percentageOrdered By: Riccardo Hillman on 08-01-2024 Neutrophil percentage 83.9 % High 47-70 [facility] No Panel InformationOrdered By: Riccardo Hillman on 08-01-2024 24 U/L <32 [facility] Nucleated red blood cell per centageOrdered By: Riccardo Hillman on 08-01-2024 Nucleated red blood cell percentage 0 % 0-5 [facility] Platelet countOrdered By: Bertram Hillman on 08-01-2024 Platelet count 338 K/mm3 150-450 [facility] Potassium [Moles/Vol]Ordered By: Riccardo Hillman on 08-01-2024 Serum or plasma potassium measurement 3.5 mmol/L 3.3-5.1 [facility] Protein Test strip Ql (U)Ord ered By: Riccardo Hillman on 08-01-2024 Urine protein assay by test strip, semi-quantitative 100 mg/dl High Negative [facility] RBC Auto (Bld) [#/Vol]Ordere d By: Riccardo Hillman on 08-01-2024 Automated blood erythrocyte count 4.91 M/mm3 4.2-5.4 [facility] Serum globulin measurementOr dered By: Riccardo Hillman on 08-01-2024 Serum globulin measurement 4.0 g/dL 2.2-4.2 [facility] Sodium [Moles/Vol]Ordered By : Riccardo Hillman on 08-01-2024 Serum or plasma sodium measurement (moles/volume) 132 mmol/L Low 133-145 [facility] Specific gravity (U) [Rel de nsity]Ordered By: Riccardo Hillman on 08-01-2024 Urine specific gravity measurement 1.010 1.002-1.03 0 [facility] Total proteinOrdered By: Guerita Hillman on 08-01-2024 Total protein 8.1 g/dL 5.9-8.4 [facility] Urea nitrogen [Mass/Vol]Orde red By: Riccardo Hillman on 08-01-2024 Serum or plasma urea nitrogen measurement (mass/volume) 9 mg/dL 4-19 [facility] Urinalysis, Completeon 08-01 BACTERIA 4+ /hpf Normal None Seen [facility] Comment on above: Order Comment: LUISA CTOR TO SPECIFY Performed By: #### L 400.0001 ####[facility] [address] [place], [place], [id number] EPI,SQUAMOUS 0-5 SEEN Normal 5-10 [facility] Comment on above: Order Comment: LUISA CTOR TO SPECIFY Performed By: #### L 400.0001 ####[facility] [address] [place], [address] RBC 0-5 SEEN Normal 0-5 [facility] Comment on above: Order Comment: LUISA CTOR TO SPECIFY Performed By: #### L 400.0001 ####[facility] [address] [place], [address] YEAST 1+ /hpf Normal None Seen [facility] Comment on above: Order Comment: LUISA CTOR TO SPECIFY Performed By: #### L 400.0001 ####[facility] [address] [place], [address] WBC 50-100 SEEN Normal 0-5 [facility] Comment on above: Order Comment: LUISA CTOR TO SPECIFY Performed By: #### L 400.0001 ####[facility] [address] [place], [place], [id number] Mucus Ql (Urine sed) 0 SEEN Normal [facility] Comment on above: Order Comment: LUISA CTOR TO SPECIFY Performed By: #### L 400.0001 ####[facility] [address] [place], [place], [id number] Urine blood detectionOrdered By: Riccardo Hillman on 08-01-2024 Urine blood detection 50 /ul High Negative [facility] Urine cultureOrdered By: Guerita Hillman on 08-01-2024 Urine culture ESBL Escherichia coli Abnormal [facility] Urine total bilirubin detect ion by test stripOrdered By: Riccardo iHllman on 08-01-2024 Urine total bilirubin detection by test strip Negative Negative [facility] Urobilinogen Ql (U)Ordered B y: Riccardo Hillman on 08-01-2024 Urine urobilinogen measurement Normal mg/dl Normal [facility] White blood cell (WBC) count Ordered By: Riccardo Hillman on 08-01-2024 White blood cell (WBC) count 13.3 K/mm3 High 4.4-11.0 [facility] White blood cell countOrdere d By: Riccardo Hillman on 08-01-2024 White blood cell count 50-100 SEEN /hpf 0-5 [facility] Yeast LM.HPF (Urine sed) [#/ Area]Ordered By: Riccardo Hillman on 08-01-2024 Urine sediment yeast count by microscopy (number/high powered field) 1+ /hpf None Seen [facility] pH (U)Ordered By: Riccardo rondon on 08-01-2024 Urine pH 6.5 5.0 - 8.0 [facility] Absolute neutrophil countOrd ered By: Nicole Trujillo on 07-03-2024 Absolute neutrophil count 2.6 X10^3/uL 2.0-7.7 [facility] Basic Metabolic Profile (BMP )on 07-03-2024 BUN/CRE 24.4 RATIO High 10-20 [facility] Comment on above: Performed By: #### L 500.2500, L100.0100 ####[facility] [address] [place], [address] CA,Total 8.6 mg/dL Normal 8.5-10.1 [facility] Comment on above: Performed By: #### L 500.2500, L100.0100 ####[facility] [address] [place], [address] Chloride [Moles/Vol] 105 mmol/L Normal 98-107 [facility] Comment on above: Performed By: #### L 500.2500, L100.0100 ####[facility] [address] [place], [address] CO2 [Moles/Vol] 27.0 mmol/L Normal 21.0-32.0 [facility] Comment on above: Performed By: #### L 500.2500, L100.0100 ####[facility] [address] [place], [address] Creatinine [Mass/Vol] 0.61 mg/dL Normal 0.55-1.02 [facility] Comment on above: Result Comment: The validity of the calculated GFR GFRAA in patients over70 years has not been determined. Clinical correlation isessential. Performed By: #### L 500.2500, L100.0100 ####[facility] [address] [place], [address] ECRCL 119.69 ml/min Normal [facility] Comment on above: Performed By: #### L 500.2500, L100.0100 ####[facility] [address] [place], [address] EST GFR - AA 131 mL/min Normal >60 [facility] Comment on above: Result Comment: Afri can Cypriot GFR Calc Performed By: #### L 500.2500, L100.0100 ####[facility] [address] [place], [address] GAP 5 Normal 5-15 [facility] Comment on above: Performed By: #### L 500.2500, L100.0100 ####[facility] [address] [place], [address] GFR/1.73 sq M.predicted among non-blacks MDRD (S/P/Bld) [Vol rate/Area] 108 mL/min/{1.73_m2} Normal >60 [facility] Comment on above: Result Comment: Non- GFR Calc Performed By: #### L 500.2500, L100.0100 ####[facility] [address] [place], [address] Glucose [Mass/Vol] 163 mg/dL High 74-106 [facility] Comment on above: Result Comment: Fast ing Glucose result greater than or equal to 126 mg/dLsuggests DIABETES MELLITUS per A.D.A. criteria. Performed By: #### L 500.2500, L100.0100 ####[facility] [address] [place], [address] Potassium [Moles/Vol] 3.4 mmol/L Low 3.5-5.1 [facility] Comment on above: Performed By: #### L 500.2500, L100.0100 ####[facility] [address] [place], [address] Sodium [Moles/Vol] 137 mmol/L Normal 136-145 [facility] Comment on above: Performed By: #### L 500.2500, L100.0100 ####[facility] [address] [place], [address] Urea nitrogen [Mass/Vol] 15 mg/dL Normal 7-18 [facility] Comment on above: Performed By: #### L 500.2500, L100.0100 ####[facility] [address] [place], [address] Basophil percentageOrdered B y: Nicole Trujillo on 07-03-2024 Basophil percentage 0.4 % 0-1 [facility] Bedside Glucoseon 07-03-2024 FINGERSTICK GLU 180 mg/dL High 74-106 [facility] Comment on above: Result Comment: TALIA GEMENT OF PATIENT CARE PER NURSING PROTOCOL Performed By: #### L 501.080 ####[facility] [address] [place], [address] FINGERSTICK GLU 137 mg/dL High 74-106 [facility] Comment on above: Result Comment: TALIA GEMENT OF PATIENT CARE PER NURSING PROTOCOL Performed By: #### L 501.080 ####[facility] [address] [place], [address] Blood urea nitrogen (BUN)/cr eatinine ratioOrdered By: Nicole Trujillo on 07-03-2024 Blood urea nitrogen (BUN)/creatinine ratio 24.4 RATIO High 10-20 [facility] CBC W/Diff, Automatedon 06-06 0 Absolute Lymph 1.43 X10 3/uL Normal 0.83-4.51 [facility] Comment on above: Performed By: #### L 500.2500, L100.0100 ####[facility] [address] [place], [address] Absolute Neut 2.6 X10 3/uL Normal 2.0-7.7 [facility] Comment on above: Performed By: #### L 500.2500, L100.0100 ####[facility] [address] [place], [address] Basophils/100 WBC (Bld) 0.4 % Normal 0-1 [facility] Comment on above: Performed By: #### L 500.2500, L100.0100 ####[facility] [address] [place], [address] Eosinophils/100 WBC (Bld) 0.7 % Normal 0-5 [facility] Comment on above: Performed By: #### L 500.2500, L100.0100 ####[facility] [address] [place], [address] Erythrocyte distribution width (RBC) [Ratio] 14.3 % Normal 11.6-14.6 [facility] Comment on above: Performed By: #### L 500.2500, L100.0100 ####[facility] [address] [place], [address] Hematocrit (Bld) [Volume fraction] 32.6 % Low 37-47 [facility] Comment on above: Performed By: #### L 500.2500, L100.0100 ####[facility] [address] [place], [address] Hemoglobin (Bld) [Mass/Vol] 10.8 g/dL Low 12.0-15.0 [facility] Comment on above: Performed By: #### L 500.2500, L100.0100 ####[facility] [address] [place], [address] IG% 0.700 Normal 0.0-0.9 [facility] Comment on above: Result Comment: IG% - Immature Granulocytes (promyelocytes, myelocytes andmetamyelocytes) > 1% indicates that a LEFT SHIFT is Present. Performed By: #### L 500.2500, L100.0100 ####[facility] [address] [place], [address] Lymphocytes/100 WBC (Bld) 32.0 % Normal 19-41 [facility] Comment on above: Performed By: #### L 500.2500, L100.0100 ####[facility] [address] [place], [address] MCH (RBC) [Entitic mass] 27.2 pg Normal 27.0-32.0 [facility] Comment on above: Performed By: #### L 500.2500, L100.0100 ####[facility] [address] [place], [address] MCHC (RBC) [Mass/Vol] 33.1 g/dL Normal 32-36 [facility] Comment on above: Performed By: #### L 500.2500, L100.0100 ####[facility] [address] [place], [address] MCV (RBC) [Entitic vol] 82.1 fL Normal 81-99 [facility] Comment on above: Performed By: #### L 500.2500, L100.0100 ####[facility] [address] [place], [address] Monocytes/100 WBC (Bld) 8.7 % Normal 0-10 [facility] Comment on above: Performed By: #### L 500.2500, L100.0100 ####[facility] [address] [place], [address] Neutrophils/100 WBC (Bld) 57.5 % Normal 47-70 [facility] Comment on above: Performed By: #### L 500.2500, L100.0100 ####[facility] [address] [place], [address] Nucleated RBC (Bld) [#/Vol] 0 10*3/uL Normal 0-5 [facility] Comment on above: Performed By: #### L 500.2500, L100.0100 ####[facility] [address] [place], [address] Platelet mean volume (Bld) [Entitic vol] 10.2 fL Normal 6.2-12.0 [facility] Comment on above: Performed By: #### L 500.2500, L100.0100 ####[facility] [address] [place], [address] Platelets (Bld) [#/Vol] 192 10*3/uL Normal 150-450 [facility] Comment on above: Performed By: #### L 500.2500, L100.0100 ####[facility] [address] [place], [address] RBC (Bld) [#/Vol] 3.97 10*6/uL Low 4.2-5.4 [facility] Comment on above: Performed By: #### L 500.2500, L100.0100 ####[facility] [address] [place], [address] RDW SD 42.9 fl Normal 35.1-43.9 [facility] Comment on above: Performed By: #### L 500.2500, L100.0100 ####[facility] [address] [place], [address] WBC (Bld) [#/Vol] 4.5 10*3/uL Normal 4.4-11.0 [facility] Comment on above: Performed By: #### L 500.2500, L100.0100 ####[facility] [address] [place], [address] Calcium [Mass/Vol]Ordered By : Nicole Trujillo on 07-03-2024 Serum or plasma calcium measurement (mass/volume) 8.6 mg/dL 8.5-10.1 [facility] Carbon dioxide measurementOr dered By: Nicole Trujillo on 07-03-2024 Carbon dioxide measurement 27.0 mmol/L 21.0-32.0 [facility] Chloride measurementOrdered By: Nicole Trujillo on 07-03-2024 Chloride measurement 105 mmol/L 98-107 [facility] Creatinine [Mass/Vol]Ordered By: Nicole Trujillo on 07-03-2024 Serum or plasma creatinine measurement (mass/volume) 0.61 mg/dL 0.55-1.02 [facility] Eosinophil percentageOrdered By: Nicole Trujillo on 07-03-2024 Eosinophil percentage 0.7 % 0-5 [facility] Erythrocyte distribution wid th (RBC) [Ratio]Ordered By: Nicole Trujillo on 07-03-2024 Erythrocyte distribution width ratio 14.3 % 11.6-14.6 [facility] Erythrocyte distribution wid th standard deviationOrdered By: Nicole Trujillo on 07-03-2024 Erythrocyte distribution width standard deviation 42.9 fl 35.1-43.9 [facility] Estimated glomerular filtrat ion rate (GFR) AmericanOrdered By: Nicole Trujillo on 07-03-2024 Estimated glomerular filtration rate (GFR) 131 mL/min >60 [facility] Estimation of creatinine sylvain aranceOrdered By: Nicole Trujillo on 07-03-2024 Estimation of creatinine clearance 119.69 ml/min [facility] Glomerular filtration rate ( GFR) estimationOrdered By: Nicole Trujillo on 07-03-2024 Glomerular filtration rate (GFR) estimation 108 mL/min >60 [facility] Glucose measurementOrdered B y: Nicole Trujillo on 07-03-2024 Glucose measurement 163 mg/dL High 74-106 [facility] Glucose measurement at bedsi deOrdered By: Nicole Trujillo on 07-03-2024 Glucose measurement at bedside 180 mg/dL High 74-106 [facility] Hematocrit Auto (Bld) [Volum e fraction]Ordered By: Nicole Trujillo on 07-03-2024 Automated blood hematocrit (percentage) 32.6 % Low 37-47 [facility] Hemoglobin measurementOrdere d By: Nicole Trujillo on 07-03-2024 Hemoglobin measurement 10.8 g/dL Low 12.0-15.0 [facility] Immature granulocytes/100 WB C Auto (Bld)Ordered By: Nicole Trujillo on 07-03-2024 Automated immature granulocyte percentage 0.700 % 0.0-0.9 [facility] Lymphocytes Auto (Unsp spec) [#/Vol]Ordered By: Nicole Trujillo on 07-03-2024 Absolute lymphocyte count 1.43 X10^3/uL 0.83-4.51 [facility] Lymphocytes/100 WBC Auto (Un sp spec)Ordered By: Nicole Trujillo on 07-03-2024 Automated lymphocyte count as percentage of total leukocytes 32.0 % 19-41 [facility] MCV (RBC) [Entitic vol]Order ed By: Nicole Trujillo on 07-03-2024 MCV (mean corpuscular volume) determination 82.1 fL 81-99 [facility] Mean corpuscular hemoglobin (MCH) determinationOrdered By: iNcole Trujillo on 07-03-2024 Mean corpuscular hemoglobin (MCH) determination 27.2 pg 27.0-32.0 [facility] Mean corpuscular hemoglobin concentration (MCHC) determinationOrdered By: Nciole Trujillo on 07-03-2024 Mean corpuscular hemoglobin concentration (MCHC) determination 33.1 g/dL 32-36 [facility] Mean platelet volume determi nationOrdered By: Nicole Trujillo on 07-03-2024 Mean platelet volume determination 10.2 fl 6.2-12.0 [facility] Monocyte percentageOrdered B y: Nicole Trujillo on 07-03-2024 Monocyte percentage 8.7 % 0-10 [facility] Neutrophil percentageOrdered By: Nicole Trujillo on 07-03-2024 Neutrophil percentage 57.5 % 47-70 [facility] Nucleated red blood cell per centageOrdered By: Nicole Trujillo on 07-03-2024 Nucleated red blood cell percentage 0 % 0-5 [facility] Platelet countOrdered By: Mary Trujillo on 07-03-2024 Platelet count 192 K/mm3 150-450 [facility] Potassium measurementOrdered By: Nicole Trujillo on 07-03-2024 Potassium measurement 3.4 mmol/L Low 3.5-5.1 [facility] RBC Auto (Bld) [#/Vol]Ordere d By: Nicole Trujillo on 07-03-2024 Automated blood erythrocyte count 3.97 M/mm3 Low 4.2-5.4 [facility] Serum anion gap measurementO rdered By: Nicole Trujillo on 07-03-2024 Serum anion gap measurement 5 5-15 [facility] Sodium levelOrdered By: Ifrah Trujillo on 07-03-2024 Sodium level 137 mmol/L 136-145 [facility] Urea nitrogen [Mass/Vol]Orde red By: Nicole Trujillo on 07-03-2024 Serum or plasma urea nitrogen measurement (mass/volume) 15 mg/dL -18 [facility] White blood cell (WBC) count Ordered By: Nicole Trujillo on 07-03-2024 White blood cell (WBC) count 4.5 K/mm3 4.4-11.0 [facility] Abdomen/Pel W ORAL Cont Only on 07-02-2024 Abdomen/Pel W ORAL Cont Only Normal [facility] Basic Metabolic Profile (BMP )on 07-02-2024 BUN/CRE 26.7 RATIO High 10-20 [facility] Comment on above: Performed By: #### L 501.5200, L100.0100, L501.2300, L500.2500 ####[facility] [address] [place], [address] CA,Total 8.3 mg/dL Low 8.5-10.1 [facility] Comment on above: Performed By: #### L 501.5200, L100.0100, L501.2300, L500.2500 ####[facility] [address] [place], [address] Chloride [Moles/Vol] 104 mmol/L Normal 98-107 [facility] Comment on above: Performed By: #### L 501.5200, L100.0100, L501.2300, L500.2500 ####[facility] [address] [place], [address] CO2 [Moles/Vol] 24.0 mmol/L Normal 21.0-32.0 [facility] Comment on above: Performed By: #### L 501.5200, L100.0100, L501.2300, L500.2500 ####[facility] [address] [place], [address] Creatinine [Mass/Vol] 0.94 mg/dL Normal 0.55-1.02 [facility] Comment on above: Result Comment: The validity of the calculated GFR GFRAA in patients over70 years has not been determined. Clinical correlation isessential. Performed By: #### L 501.5200, L100.0100, L501.2300, L500.2500 ####[facility] [address] [place], [address] ECRCL 76.61 ml/min Normal [facility] Comment on above: Performed By: #### L 501.5200, L100.0100, L501.2300, L500.2500 ####[facility] [address] [place], [address] EST GFR - AA 81 mL/min Normal >60 [facility] Comment on above: Result Comment: Afri can Cypriot GFR Calc Performed By: #### L 501.5200, L100.0100, L501.2300, L500.2500 ####[facility] [address] [place], [address] GAP 8 Normal 5-15 [facility] Comment on above: Performed By: #### L 501.5200, L100.0100, L501.2300, L500.2500 ####[facility] [address] [place], [address] GFR/1.73 sq M.predicted among non-blacks MDRD (S/P/Bld) [Vol rate/Area] 67 mL/min/{1.73_m2} Normal >60 [facility] Comment on above: Result Comment: Non- GFR Calc Performed By: #### L 501.5200, L100.0100, L501.2300, L500.2500 ####[facility] [address] [place], [address] Glucose [Mass/Vol] 134 mg/dL High 74-106 [facility] Comment on above: Result Comment: Fast ing Glucose result greater than or equal to 126 mg/dLsuggests DIABETES MELLITUS per A.D.A. criteria. Performed By: #### L 501.5200, L100.0100, L501.2300, L500.2500 ####[facility] [address] [place], [address] Potassium [Moles/Vol] 3.6 mmol/L Normal 3.5-5.1 [facility] Comment on above: Performed By: #### L 501.5200, L100.0100, L501.2300, L500.2500 ####[facility] [address] [place], [address] Sodium [Moles/Vol] 137 mmol/L Normal 136-145 [facility] Comment on above: Performed By: #### L 501.5200, L100.0100, L501.2300, L500.2500 ####[facility] [address] [place], [address] Urea nitrogen [Mass/Vol] 25 mg/dL High 7-18 [facility] Comment on above: Performed By: #### L 501.5200, L100.0100, L501.2300, L500.2500 ####[facility] [address] [place], [address] Bedside Glucoseon 07-02-2024 FINGERSTICK GLU 159 mg/dL High 74-106 [facility] Comment on above: Result Comment: TALIA GEMENT OF PATIENT CARE PER NURSING PROTOCOL Performed By: #### L 501.080 ####[facility] [address] [place], [address] FINGERSTICK GLU 190 mg/dL High 74-106 [facility] Comment on above: Result Comment: TALIA GEMENT OF PATIENT CARE PER NURSING PROTOCOL Performed By: #### L 501.080 ####[facility] [address] [place], [address] FINGERSTICK GLU 155 mg/dL High 74-106 [facility] Comment on above: Result Comment: TALIA GEMENT OF PATIENT CARE PER NURSING PROTOCOL Performed By: #### L 501.080 ####[facility] [address] [place], [address] FINGERSTICK GLU 128 mg/dL High 74-106 [facility] Comment on above: Result Comment: TALIA GEMENT OF PATIENT CARE PER NURSING PROTOCOL Performed By: #### L 501.080 ####[facility] [address] [place], [address] FINGERSTICK GLU 215 mg/dL High 74-106 [facility] Comment on above: Result Comment: TALIA GEMENT OF PATIENT CARE PER NURSING PROTOCOL Performed By: #### L 501.080 ####[facility] [address] [place], [address] CBC W/Diff, Automatedon 06-05 Absolute Lymph 2.11 X10 3/uL Normal 0.83-4.51 [facility] Comment on above: Performed By: #### L 501.5200, L100.0100, L501.2300, L500.2500 ####[facility] [address] [place], [address] Absolute Neut 2.4 X10 3/uL Normal 2.0-7.7 [facility] Comment on above: Performed By: #### L 501.5200, L100.0100, L501.2300, L500.2500 ####[facility] [address] [place], [address] Basophils/100 WBC (Bld) 0.4 % Normal 0-1 [facility] Comment on above: Performed By: #### L 501.5200, L100.0100, L501.2300, L500.2500 ####[facility] [address] [place], [address] Eosinophils/100 WBC (Bld) 0.6 % Normal 0-5 [facility] Comment on above: Performed By: #### L 501.5200, L100.0100, L501.2300, L500.2500 ####[facility] [address] [place], [address] Erythrocyte distribution width (RBC) [Ratio] 14.6 % Normal 11.6-14.6 [facility] Comment on above: Performed By: #### L 501.5200, L100.0100, L501.2300, L500.2500 ####[facility] [address] [place], [address] Hematocrit (Bld) [Volume fraction] 29.5 % Low 37-47 [facility] Comment on above: Performed By: #### L 501.5200, L100.0100, L501.2300, L500.2500 ####[facility] [address] [place], [address] Hemoglobin (Bld) [Mass/Vol] 9.5 g/dL Low 12.0-15.0 [facility] Comment on above: Performed By: #### L 501.5200, L100.0100, L501.2300, L500.2500 ####[facility] [address] [place], [address] IG% 0.400 Normal 0.0-0.9 [facility] Comment on above: Result Comment: IG% - Immature Granulocytes (promyelocytes, myelocytes andmetamyelocytes) > 1% indicates that a LEFT SHIFT is Present. Performed By: #### L 501.5200, L100.0100, L501.2300, L500.2500 ####[facility] [address] [place], [address] Lymphocytes/100 WBC (Bld) 42.8 % High 19-41 [facility] Comment on above: Performed By: #### L 501.5200, L100.0100, L501.2300, L500.2500 ####[facility] [address] [place], [address] MCH (RBC) [Entitic mass] 27.1 pg Normal 27.0-32.0 [facility] Comment on above: Performed By: #### L 501.5200, L100.0100, L501.2300, L500.2500 ####[facility] [address] [place], [address] MCHC (RBC) [Mass/Vol] 32.2 g/dL Normal 32-36 [facility] Comment on above: Performed By: #### L 501.5200, L100.0100, L501.2300, L500.2500 ####[facility] [address] [place], [address] MCV (RBC) [Entitic vol] 84.0 fL Normal 81-99 [facility] Comment on above: Performed By: #### L 501.5200, L100.0100, L501.2300, L500.2500 ####[facility] [address] [place], [address] Monocytes/100 WBC (Bld) 8.1 % Normal 0-10 [facility] Comment on above: Performed By: #### L 501.5200, L100.0100, L501.2300, L500.2500 ####[facility] [address] [place], [address] Neutrophils/100 WBC (Bld) 47.7 % Normal 47-70 [facility] Comment on above: Performed By: #### L 501.5200, L100.0100, L501.2300, L500.2500 ####[facility] [address] [place], [address] Nucleated RBC (Bld) [#/Vol] 0 10*3/uL Normal 0-5 [facility] Comment on above: Performed By: #### L 501.5200, L100.0100, L501.2300, L500.2500 ####[facility] [address] [place], [address] Platelet mean volume (Bld) [Entitic vol] 9.9 fL Normal 6.2-12.0 [facility] Comment on above: Performed By: #### L 501.5200, L100.0100, L501.2300, L500.2500 ####[facility] [address] [place], [address] Platelets (Bld) [#/Vol] 174 10*3/uL Normal 150-450 [facility] Comment on above: Performed By: #### L 501.5200, L100.0100, L501.2300, L500.2500 ####[facility] [address] [place], [address] RBC (Bld) [#/Vol] 3.51 10*6/uL Low 4.2-5.4 [facility] Comment on above: Performed By: #### L 501.5200, L100.0100, L501.2300, L500.2500 ####[facility] [address] [place], [address] RDW SD 44.8 fl High 35.1-43.9 [facility] Comment on above: Performed By: #### L 501.5200, L100.0100, L501.2300, L500.2500 ####[facility] [address] [place], [address] WBC (Bld) [#/Vol] 4.9 10*3/uL Normal 4.4-11.0 [facility] Comment on above: Performed By: #### L 501.5200, L100.0100, L501.2300, L500.2500 ####[facility] [address] [place], [address] Consultation - Infectious Dx on 07-02-2024 Consultation - Infectious Dx Normal [facility] Ferritinon 07-02-2024 Ferritin [Mass/Vol] 148 ng/mL Normal 8-252 [facility] Comment on above: Performed By: #### L 503.6030, L503.6550 ####[facility] [address] [place], [address] Ferritin measurementOrdered By: Nicole Trujillo on 07-02-2024 Ferritin measurement 148 ng/mL 8-252 [facility] Iron (Unsp spec) [Mass/Mass] Ordered By: Nicole Trujillo on 07-02-2024 Iron measurement (mass/mass) 106 ug/dL 50-170 [facility] Iron saturation [Mass fracti on]Ordered By: Nicole Trujillo on 07-02-2024 Serum or plasma iron saturation measurement (mass fraction) 39.8 % 15.0-55.0 [facility] Iron+Iron Binding Capacityon 07-02-2024 Iron [Mass/Vol] 106 ug/dL Normal 50-170 [facility] Comment on above: Performed By: #### L 503.6030, L503.6550 ####[facility] [address] [place], [address] IRON SATURATION 39.8 Normal 15.0-55.0 [facility] Comment on above: Performed By: #### L 503.6030, L503.6550 ####[facility] [address] [place], [address] TIBC 266 ug/dL Normal 250-450 [facility] Comment on above: Performed By: #### L 503.6030, L503.6550 ####[facility] [address] [place], [address] Magnesiumon 07-02-2024 Magnesium [Mass/Vol] 2.0 mg/dL Normal 1.6-2.6 [facility] Comment on above: Performed By: #### L 501.5200, L100.0100, L501.2300, L500.2500 ####[facility] [address] [place], [address] Magnesium measurementOrdered By: Nicole Trujillo on 07-02-2024 Magnesium measurement 2.0 mg/dL 1.6-2.6 [facility] Phosphoruson 07-02-2024 Phosphate [Mass/Vol] 2.8 mg/dL Normal 2.5-4.9 [facility] Comment on above: Performed By: #### L 501.5200, L100.0100, L501.2300, L500.2500 ####[facility] [address] [place], [place], [address] Phosphorus measurementOrdere d By: Nicole Trujillo on 07-02-2024 Phosphorus measurement 2.8 mg/dL 2.5-4.9 [facility] TIBCOrdered By: Nicole Trujillo on 07-02-2024 TIBC 266 ug/dL 250-450 [facility] Urine Cultureon 07-02-2024 URC Normal [facility] Comment on above: Performed By: #### M 100.2200 ####[facility] [address] [place], [place], [address] ALP [Catalytic activity/Vol] Ordered By: Nicole Trujillo on 07-01-2024 Serum or plasma alkaline phosphatase measurement 80 U/L 45-117 [facility] ALT [Catalytic activity/Vol] Ordered By: Nicole Trujillo on 07-01-2024 Serum or plasma alanine aminotransferase (ALT) measurement 22 U/L 13-56 [facility] Albumin [Mass/Vol]Ordered By : Nicole Trujillo on 07-01-2024 Serum or plasma albumin measurement (mass/volume) 2.7 g/dL Low 3.2-5.0 [facility] Albumin to globulin ratioOrd ered By: Nicole Trujillo on 07-01-2024 Albumin to globulin ratio 0.8 RATIO Low 0.9-2.4 [facility] Bedside Glucoseon 07-01-2024 FINGERSTICK GLU 254 mg/dL High 74-106 [facility] Comment on above: Result Comment: TALIA GEMENT OF PATIENT CARE PER NURSING PROTOCOL Performed By: #### L 501.080 ####[facility] [address], [address] FINGERSTICK GLU 195 mg/dL High 74-106 [facility] Comment on above: Result Comment: TALIA GEMENT OF PATIENT CARE PER NURSING PROTOCOL Performed By: #### L 501.080 ####[facility] [address] [place], [address] FINGERSTICK GLU 117 mg/dL High 74-106 [facility] Comment on above: Result Comment: TALIA GEMENT OF PATIENT CARE PER NURSING PROTOCOL Performed By: #### L 501.080 ####[facility] [address] [place], [address] Bilirubin, totalOrdered By: Nicole Trujillo on 07-01-2024 Bilirubin, total 1.10 mg/dL High 0.20-1.00 [facility] CBC W/Diff, Automatedon 06-05 Absolute Lymph 1.40 X10 3/uL Normal 0.83-4.51 [facility] Comment on above: Performed By: #### L 500.4050, L501.2300, L100.0100, L501.9520, L501.5200 ####[facility] [address] [place], [address] Absolute Neut 3.1 X10 3/uL Normal 2.0-7.7 [facility] Comment on above: Performed By: #### L 500.4050, L501.2300, L100.0100, L501.9520, L501.5200 ####[facility] [address] [place], [address] Basophils/100 WBC (Bld) 0.4 % Normal 0-1 [facility] Comment on above: Performed By: #### L 500.4050, L501.2300, L100.0100, L501.9520, L501.5200 ####[facility] [address] [place], [address] Eosinophils/100 WBC (Bld) 0.2 % Normal 0-5 [facility] Comment on above: Performed By: #### L 500.4050, L501.2300, L100.0100, L501.9520, L501.5200 ####[facility] [address] [place], [address] Erythrocyte distribution width (RBC) [Ratio] 14.6 % Normal 11.6-14.6 [facility] Comment on above: Performed By: #### L 500.4050, L501.2300, L100.0100, L501.9520, L501.5200 ####[facility] [address] [place], [address] Hematocrit (Bld) [Volume fraction] 33.5 % Low 37-47 [facility] Comment on above: Performed By: #### L 500.4050, L501.2300, L100.0100, L501.9520, L501.5200 ####[facility] [address] [place], [address] Hemoglobin (Bld) [Mass/Vol] 10.7 g/dL Low 12.0-15.0 [facility] Comment on above: Performed By: #### L 500.4050, L501.2300, L100.0100, L501.9520, L501.5200 ####[facility] [address] [place], [address] IG% 0.200 Normal 0.0-0.9 [facility] Comment on above: Result Comment: IG% - Immature Granulocytes (promyelocytes, myelocytes andmetamyelocytes) > 1% indicates that a LEFT SHIFT is Present. Performed By: #### L 500.4050, L501.2300, L100.0100, L501.9520, L501.5200 ####[facility] [address] [place], [address] Lymphocytes/100 WBC (Bld) 28.5 % Normal 19-41 [facility] Comment on above: Performed By: #### L 500.4050, L501.2300, L100.0100, L501.9520, L501.5200 ####[facility] [address] [place], [address] MCH (RBC) [Entitic mass] 26.7 pg Low 27.0-32.0 [facility] Comment on above: Performed By: #### L 500.4050, L501.2300, L100.0100, L501.9520, L501.5200 ####[facility] [address] [place], [address] MCHC (RBC) [Mass/Vol] 31.9 g/dL Low 32-36 [facility] Comment on above: Performed By: #### L 500.4050, L501.2300, L100.0100, L501.9520, L501.5200 ####[facility] [address] [place], [address] MCV (RBC) [Entitic vol] 83.5 fL Normal 81-99 [facility] Comment on above: Performed By: #### L 500.4050, L501.2300, L100.0100, L501.9520, L501.5200 ####[facility] [address] [place], [address] Monocytes/100 WBC (Bld) 6.7 % Normal 0-10 [facility] Comment on above: Performed By: #### L 500.4050, L501.2300, L100.0100, L501.9520, L501.5200 ####[facility] [address] [place], [address] Neutrophils/100 WBC (Bld) 64.0 % Normal 47-70 [facility] Comment on above: Performed By: #### L 500.4050, L501.2300, L100.0100, L501.9520, L501.5200 ####[facility] [address] [place], [address] Nucleated RBC (Bld) [#/Vol] 0 10*3/uL Normal 0-5 [facility] Comment on above: Performed By: #### L 500.4050, L501.2300, L100.0100, L501.9520, L501.5200 ####[facility] [address] [place], [address] Platelet mean volume (Bld) [Entitic vol] 9.6 fL Normal 6.2-12.0 [facility] Comment on above: Performed By: #### L 500.4050, L501.2300, L100.0100, L501.9520, L501.5200 ####[facility] [address] [place], [address] Platelets (Bld) [#/Vol] 184 10*3/uL Normal 150-450 [facility] Comment on above: Performed By: #### L 500.4050, L501.2300, L100.0100, L501.9520, L501.5200 ####[facility] [address] [place], [address] RBC (Bld) [#/Vol] 4.01 10*6/uL Low 4.2-5.4 [facility] Comment on above: Performed By: #### L 500.4050, L501.2300, L100.0100, L501.9520, L501.5200 ####[facility] [address] [place], [address] RDW SD 44.7 fl High 35.1-43.9 [facility] Comment on above: Performed By: #### L 500.4050, L501.2300, L100.0100, L501.9520, L501.5200 ####[facility] [address] [place], [address] WBC (Bld) [#/Vol] 4.9 10*3/uL Normal 4.4-11.0 [facility] Comment on above: Performed By: #### L 500.4050, L501.2300, L100.0100, L501.9520, L501.5200 ####[facility] [address] [place], [address] Comprehensive Metabolic Prof ilon 07-01-2024 Albumin [Mass/Vol] 2.7 g/dL Low 3.2-5.0 [facility] Comment on above: Performed By: #### L 500.4050, L501.2300, L100.0100, L501.9520, L501.5200 ####[facility] [address] [place], [address] Albumin/Globulin [Mass ratio] 0.8 {ratio} Low 0.9-2.4 [facility] Comment on above: Performed By: #### L 500.4050, L501.2300, L100.0100, L501.9520, L501.5200 ####[facility] [address] [place], [address] ALK P 80 U/L Normal 45-117 [facility] Comment on above: Performed By: #### L 500.4050, L501.2300, L100.0100, L501.9520, L501.5200 ####[facility] [address] [place], [address] ALT [Catalytic activity/Vol] 22 U/L Normal 13-56 [facility] Comment on above: Performed By: #### L 500.4050, L501.2300, L100.0100, L501.9520, L501.5200 ####[facility] [address] [place], [address] AST [Catalytic activity/Vol] 24 U/L Normal 15-37 [facility] Comment on above: Performed By: #### L 500.4050, L501.2300, L100.0100, L501.9520, L501.5200 ####[facility] [address] [place], [address] Bilirubin [Mass/Vol] 1.10 mg/dL High 0.20-1.00 [facility] Comment on above: Result Comment: For patients on eltrombopag therapy, use of Dimension [place] TBIL is not recommended. Performed By: #### L 500.4050, L501.2300, L100.0100, L501.9520, L501.5200 ####[facility] [address] [place], [address] BUN/CRE 22.7 RATIO High 10-20 [facility] Comment on above: Performed By: #### L 500.4050, L501.2300, L100.0100, L501.9520, L501.5200 ####[facility] [address] [place], [address] CA,Total 8.5 mg/dL Normal 8.5-10.1 [facility] Comment on above: Performed By: #### L 500.4050, L501.2300, L100.0100, L501.9520, L501.5200 ####[facility] [address] [place], [address] Chloride [Moles/Vol] 107 mmol/L Normal 98-107 [facility] Comment on above: Performed By: #### L 500.4050, L501.2300, L100.0100, L501.9520, L501.5200 ####[facility] [address] [place], [address] CO2 [Moles/Vol] 21.0 mmol/L Normal 21.0-32.0 [facility] Comment on above: Performed By: #### L 500.4050, L501.2300, L100.0100, L501.9520, L501.5200 ####[facility] [address] [place], [address] Creatinine [Mass/Vol] 1.19 mg/dL High 0.55-1.02 [facility] Comment on above: Result Comment: The validity of the calculated GFR GFRAA in patients over70 years has not been determined. Clinical correlation isessential. Performed By: #### L 500.4050, L501.2300, L100.0100, L501.9520, L501.5200 ####[facility] [address] [place], [address] ECRCL 60.52 ml/min Normal [facility] Comment on above: Performed By: #### L 500.4050, L501.2300, L100.0100, L501.9520, L501.5200 ####[facility] [address] [place], [address] EST GFR - AA 61 mL/min Normal >60 [facility] Comment on above: Result Comment: Afri can Cypriot GFR Calc Performed By: #### L 500.4050, L501.2300, L100.0100, L501.9520, L501.5200 ####[facility] [address] [place], [address] GAP 9 Normal 5-15 [facility] Comment on above: Performed By: #### L 500.4050, L501.2300, L100.0100, L501.9520, L501.5200 ####[facility] [address] [place], [address] GFR/1.73 sq M.predicted among non-blacks MDRD (S/P/Bld) [Vol rate/Area] 51 mL/min/{1.73_m2} Low >60 [facility] Comment on above: Result Comment: Non- GFR Calc Performed By: #### L 500.4050, L501.2300, L100.0100, L501.9520, L501.5200 ####[facility] [address] [place], [address] Globulin (S) [Mass/Vol] 3.5 g/dL Normal 2.2-4.2 [facility] Comment on above: Performed By: #### L 500.4050, L501.2300, L100.0100, L501.9520, L501.5200 ####[facility] [address] [place], [address] Glucose [Mass/Vol] 159 mg/dL High 74-106 [facility] Comment on above: Result Comment: Fast ing Glucose result greater than or equal to 126 mg/dLsuggests DIABETES MELLITUS per A.D.A. criteria. Performed By: #### L 500.4050, L501.2300, L100.0100, L501.9520, L501.5200 ####[facility] [address] [place], [address] Potassium [Moles/Vol] 3.4 mmol/L Low 3.5-5.1 [facility] Comment on above: Performed By: #### L 500.4050, L501.2300, L100.0100, L501.9520, L501.5200 ####[facility] [address] [place], [address] Sodium [Moles/Vol] 136 mmol/L Normal 136-145 [facility] Comment on above: Performed By: #### L 500.4050, L501.2300, L100.0100, L501.9520, L501.5200 ####[facility] [address] [place], [address] T PROT 6.2 g/dL Low 6.4-8.2 [facility] Comment on above: Performed By: #### L 500.4050, L501.2300, L100.0100, L501.9520, L501.5200 ####[facility] [address] [place], [address] Urea nitrogen [Mass/Vol] 27 mg/dL High 7-18 [facility] Comment on above: Performed By: #### L 500.4050, L501.2300, L100.0100, L501.9520, L501.5200 ####[facility] [address] [place], [address] Magnesiumon 07-01-2024 Magnesium [Mass/Vol] 2.0 mg/dL Normal 1.6-2.6 [facility] Comment on above: Performed By: #### L 500.4050, L501.2300, L100.0100, L501.9520, L501.5200 ####[facility] [address] [place], [address] No Panel InformationOrdered By: Nicole Trujillo on 07-01-2024 24 U/L 15-37 [facility] Phosphoruson 07-01-2024 Phosphate [Mass/Vol] 2.4 mg/dL Low 2.5-4.9 [facility] Comment on above: Performed By: #### L 500.4050, L501.2300, L100.0100, L501.9520, L501.5200 ####[facility] [address] [place], [address] Serum globulin measurementOr dered By: Nicole Trujillo on 07-01-2024 Serum globulin measurement 3.5 g/dL 2.2-4.2 [facility] TSH QnOrdered By: Nicole Gardiner on 07-01-2024 Serum or plasma thyroid stimulating hormone (TSH) measurement (units/volume) 1.730 uIU/mL 0.358-3.74 0 [facility] Thyroid Stim Hormone (TSH)on 07-01-2024 TSH 1.730 uIU/mL Normal 0.358-3.74 0 [facility] Comment on above: Performed By: #### L 500.4050, L501.2300, L100.0100, L501.9520, L501.5200 ####[facility] [address] [place], [address] Total proteinOrdered By: Jenae Trujillo on 07-01-2024 Total protein 6.2 g/dL Low 6.4-8.2 [facility] Bedside Glucoseon 06-30-2024 FINGERSTICK GLU 149 mg/dL High -106 [facility] Comment on above: Result Comment: TALIA GEMENT OF PATIENT CARE PER NURSING PROTOCOL Performed By: #### L 501.080 ####[facility] [address] [place], [address] FINGERSTICK GLU 216 mg/dL High [address] [place] [address] Comment on above: Result Comment: TALIA GEMENT OF PATIENT CARE PER NURSING PROTOCOL Performed By: #### L 501.080 ####[facility] [id number] [place], [address] FINGERSTICK GLU 288 mg/dL High [address] [place] [address] Comment on above: Result Comment: TALIA GEMENT OF PATIENT CARE PER NURSING PROTOCOL Performed By: #### L 501.080 ####[facility] [id number] [place], [address] FINGERSTICK GLU 291 mg/dL High [facility]106 [facility] Comment on above: Result Comment: TALIA GEMENT OF PATIENT CARE PER NURSING PROTOCOL Performed By: #### L 501.080 ####[facility] [address] [place], [address] CBC W/Diff, Automatedon - Absolute Lymph 1.35 X10 3/uL Normal 0.83-4.51 [facility] Comment on above: Performed By: #### L 100.0100, L500.4050, L501.5200 ####[facility] [address] [place], [address] Absolute Neut 3.3 X10 3/uL Normal 2.0-7.7 [facility] Comment on above: Performed By: #### L 100.0100, L500.4050, L501.5200 ####[facility] [address] [place], [address] Basophils/100 WBC (Bld) 0.2 % Normal 0-1 [facility] Comment on above: Performed By: #### L 100.0100, L500.4050, L501.5200 ####[facility] [address] [place], [address] Eosinophils/100 WBC (Bld) 0.2 % Normal 0-5 [facility] Comment on above: Performed By: #### L 100.0100, L500.4050, L501.5200 ####[facility] [address] [place], [address] Erythrocyte distribution width (RBC) [Ratio] 14.5 % Normal 11.6-14.6 [facility] Comment on above: Performed By: #### L 100.0100, L500.4050, L501.5200 ####[facility] [address] [place], [address] Hematocrit (Bld) [Volume fraction] 36.7 % Low 37-47 [facility] Comment on above: Performed By: #### L 100.0100, L500.4050, L501.5200 ####[facility] [address] [place], [address] Hemoglobin (Bld) [Mass/Vol] 12.0 g/dL Normal 12.0-15.0 [facility] Comment on above: Performed By: #### L 100.0100, L500.4050, L501.5200 ####[facility] [address] [place], [address] IG% 0.400 Normal 0.0-0.9 [facility] Comment on above: Result Comment: IG% - Immature Granulocytes (promyelocytes, myelocytes andmetamyelocytes) > 1% indicates that a LEFT SHIFT is Present. Performed By: #### L 100.0100, L500.4050, L501.5200 ####[facility] [address] [place], [address] Lymphocytes/100 WBC (Bld) 26.4 % Normal 19-41 [facility] Comment on above: Performed By: #### L 100.0100, L500.4050, L501.5200 ####[facility] [address] [place], [address] MCH (RBC) [Entitic mass] 27.0 pg Normal 27.0-32.0 [facility] Comment on above: Performed By: #### L 100.0100, L500.4050, L501.5200 ####[facility] [address] [place], [address] MCHC (RBC) [Mass/Vol] 32.7 g/dL Normal 32-36 [facility] Comment on above: Performed By: #### L 100.0100, L500.4050, L501.5200 ####[facility] [address] [place], [address] MCV (RBC) [Entitic vol] 82.5 fL Normal 81-99 [facility] Comment on above: Performed By: #### L 100.0100, L500.4050, L501.5200 ####[facility] [address] [place], [address] Monocytes/100 WBC (Bld) 7.8 % Normal 0-10 [facility] Comment on above: Performed By: #### L 100.0100, L500.4050, L501.5200 ####[facility] [address] [place], [address] Neutrophils/100 WBC (Bld) 65.0 % Normal 47-70 [facility] Comment on above: Performed By: #### L 100.0100, L500.4050, L501.5200 ####[facility] [address] [place], [address] Nucleated RBC (Bld) [#/Vol] 0 10*3/uL Normal 0-5 [facility] Comment on above: Performed By: #### L 100.0100, L500.4050, L501.5200 ####[facility] [address] [place], [address] Platelet mean volume (Bld) [Entitic vol] 9.6 fL Normal 6.2-12.0 [facility] Comment on above: Performed By: #### L 100.0100, L500.4050, L501.5200 ####[facility] [address] [place], [address] Platelets (Bld) [#/Vol] 215 10*3/uL Normal 150-450 [facility] Comment on above: Performed By: #### L 100.0100, L500.4050, L501.5200 ####[facility] [address] [place], [address] RBC (Bld) [#/Vol] 4.45 10*6/uL Normal 4.2-5.4 [facility] Comment on above: Performed By: #### L 100.0100, L500.4050, L501.5200 ####[facility] [address] [place], [address] RDW SD 43.2 fl Normal 35.1-43.9 [facility] Comment on above: Performed By: #### L 100.0100, L500.4050, L501.5200 ####[facility] [address] [place], [address] WBC (Bld) [#/Vol] 5.1 10*3/uL Normal 4.4-11.0 [facility] Comment on above: Performed By: #### L 100.0100, L500.4050, L501.5200 ####[facility] [address] [place], [address] Comprehensive Metabolic Prof ilon 06-30-2024 Albumin [Mass/Vol] 2.9 g/dL Low 3.2-5.0 [facility] Comment on above: Performed By: #### L 100.0100, L500.4050, L501.5200 ####[facility] [address] [place], [address] Albumin/Globulin [Mass ratio] 0.7 {ratio} Low 0.9-2.4 [facility] Comment on above: Performed By: #### L 100.0100, L500.4050, L501.5200 ####[facility] [address] [place], [address] ALK P 96 U/L Normal 45-117 [facility] Comment on above: Performed By: #### L 100.0100, L500.4050, L501.5200 ####[facility] [address] [place], [address] ALT [Catalytic activity/Vol] 25 U/L Normal 13-56 [facility] Comment on above: Performed By: #### L 100.0100, L500.4050, L501.5200 ####[facility] [address] [place], [address] AST [Catalytic activity/Vol] 32 U/L Normal 15-37 [facility] Comment on above: Performed By: #### L 100.0100, L500.4050, L501.5200 ####[facility] [address] [place], [address] Bilirubin [Mass/Vol] 0.90 mg/dL Normal 0.20-1.00 [facility] Comment on above: Result Comment: For patients on eltrombopag therapy, use of Dimension [place] TBIL is not recommended. Performed By: #### L 100.0100, L500.4050, L501.5200 ####[facility] [address] [place], [address] BUN/CRE 27.0 RATIO High 10-20 [facility] Comment on above: Performed By: #### L 100.0100, L500.4050, L501.5200 ####[facility] [address] [place], [address] CA,Total 9.0 mg/dL Normal 8.5-10.1 [facility] Comment on above: Performed By: #### L 100.0100, L500.4050, L501.5200 ####[facility] [address] [place], [address] Chloride [Moles/Vol] 102 mmol/L Normal 98-107 [facility] Comment on above: Performed By: #### L 100.0100, L500.4050, L501.5200 ####[facility] [address] [place], [address] CO2 [Moles/Vol] 27.0 mmol/L Normal 21.0-32.0 [facility] Comment on above: Performed By: #### L 100.0100, L500.4050, L501.5200 ####[facility] [address] [place], [address] Creatinine [Mass/Vol] 0.81 mg/dL Normal 0.55-1.02 [facility] Comment on above: Result Comment: The validity of the calculated GFR GFRAA in patients over70 years has not been determined. Clinical correlation isessential. Performed By: #### L 100.0100, L500.4050, L501.5200 ####[facility] [address] [place], [address] ECRCL 88.19 ml/min Normal [facility] Comment on above: Performed By: #### L 100.0100, L500.4050, L501.5200 ####[facility] [address] [place], [address] EST GFR - AA 95 mL/min Normal >60 [facility] Comment on above: Result Comment: Afri can [place]riot GFR Calc Performed By: #### L 100.0100, L500.4050, L501.5200 ####[facility] [address] [place], [address] GAP 5 Normal 5-15 [facility] Comment on above: Performed By: #### L 100.0100, L500.4050, L501.5200 ####[facility] [address] [place], [address] GFR/1.73 sq M.predicted among non-blacks MDRD (S/P/Bld) [Vol rate/Area] 78 mL/min/{1.73_m2} Normal >60 [facility] Comment on above: Result Comment: Non- GFR Calc Performed By: #### L 100.0100, L500.4050, L501.5200 ####[facility] [address] [place], [address] Globulin (S) [Mass/Vol] 4.3 g/dL High 2.2-4.2 [facility] Comment on above: Performed By: #### L 100.0100, L500.4050, L501.5200 ####[facility] [address] [place], [address] Glucose [Mass/Vol] 291 mg/dL High 74-106 [facility] Comment on above: Result Comment: Gluc ose result greater than or equal to 200 mg/dLsuggests DIABETES MELLITUS per A.D.A. criteria. Performed By: #### L 100.0100, L500.4050, L501.5200 ####[facility] [address] [place], [address] Potassium [Moles/Vol] 3.2 mmol/L Low 3.5-5.1 [facility] Comment on above: Performed By: #### L 100.0100, L500.4050, L501.5200 ####[facility] [address] [place], [address] Sodium [Moles/Vol] 134 mmol/L Low 136-145 [facility] Comment on above: Performed By: #### L 100.0100, L500.4050, L501.5200 ####[facility] [address] [place], [address] T PROT 7.2 g/dL Normal 6.4-8.2 [facility] Comment on above: Performed By: #### L 100.0100, L500.4050, L501.5200 ####[facility] [address] [place], [address] Urea nitrogen [Mass/Vol] 22 mg/dL High 7-18 [facility] Comment on above: Performed By: #### L 100.0100, L500.4050, L501.5200 ####[facility] [address] [place], [address] Magnesiumon 06-30-2024 Magnesium [Mass/Vol] 2.1 mg/dL Normal 1.6-2.6 [facility] Comment on above: Performed By: #### L 100.0100, L500.4050, L501.5200 ####[facility] [address] [place], [address] 12 Lead EKGon 06-29-2024 12 Lead EKG Normal [facility] Abdomen/Pelvis W IV Cont ONL Yon 06-29-2024 Abdomen/Pelvis W IV Cont ONLY Normal [facility] Bacteria LM.HPF (Urine sed) [#/Area]Ordered By: Davis Ibarra on 06-29-2024 Urine sediment bacteria count by microscopy (number/high power field) 3+ /hpf None Seen [facility] Bedside Glucoseon 06-29-2024 FINGERSTICK GLU 278 mg/dL High 74-106 [facility] Comment on above: Result Comment: TALIA CHAMBERS OF PATIENT CARE PER NURSING PROTOCOL Performed By: #### L 501.080 ####[facility] [address] [place], [address] Beta HCG ( test) Ql Ordered By: Davis Ibarra on 06-29-2024 Serum beta-hCG test, qualitative Negative [facility] CBC W/Diff, Automatedon 06-05 Absolute Lymph 1.05 X10 3/uL Normal 0.83-4.51 [facility] Comment on above: Performed By: #### L 700.6800, L501.2450, L100.0100, L501.5425, L500.4050 ####[facility] [address] [place], [address] Absolute Neut 4.8 X10 3/uL Normal 2.0-7.7 [facility] Comment on above: Performed By: #### L 700.6800, L501.2450, L100.0100, L501.5425, L500.4050 ####[facility] [address] [place], [address] Basophils/100 WBC (Bld) 0.2 % Normal 0-1 [facility] Comment on above: Performed By: #### L 700.6800, L501.2450, L100.0100, L501.5425, L500.4050 ####[facility] [address] [place], [address] Eosinophils/100 WBC (Bld) 0.5 % Normal 0-5 [facility] Comment on above: Performed By: #### L 700.6800, L501.2450, L100.0100, L501.5425, L500.4050 ####[facility] [address] [place], [address] Erythrocyte distribution width (RBC) [Ratio] 14.3 % Normal 11.6-14.6 [facility] Comment on above: Performed By: #### L 700.6800, L501.2450, L100.0100, L501.5425, L500.4050 ####[facility] [address] [place], [address] Hematocrit (Bld) [Volume fraction] 36.4 % Low 37-47 [facility] Comment on above: Performed By: #### L 700.6800, L501.2450, L100.0100, L501.5425, L500.4050 ####[facility] [address] [place], [address] Hemoglobin (Bld) [Mass/Vol] 12.8 g/dL Normal 12.0-15.0 [facility] Comment on above: Performed By: #### L 700.6800, L501.2450, L100.0100, L501.5425, L500.4050 ####[facility] [address] [place], [address] IG% 0.300 Normal 0.0-0.9 [facility] Comment on above: Result Comment: IG% - Immature Granulocytes (promyelocytes, myelocytes andmetamyelocytes) > 1% indicates that a LEFT SHIFT is Present. Performed By: #### L 700.6800, L501.2450, L100.0100, L501.5425, L500.4050 ####[facility] [address] [place], [address] Lymphocytes/100 WBC (Bld) 16.6 % Low 19-41 [facility] Comment on above: Performed By: #### L 700.6800, L501.2450, L100.0100, L501.5425, L500.4050 ####[facility] [address] [place], [address] MCH (RBC) [Entitic mass] 28.3 pg Normal 27.0-32.0 [facility] Comment on above: Performed By: #### L 700.6800, L501.2450, L100.0100, L501.5425, L500.4050 ####[facility] [address] [place], [address] MCHC (RBC) [Mass/Vol] 35.2 g/dL Normal 32-36 [facility] Comment on above: Performed By: #### L 700.6800, L501.2450, L100.0100, L501.5425, L500.4050 ####[facility] [address] [place], [address] MCV (RBC) [Entitic vol] 80.5 fL Low 81-99 [facility] Comment on above: Performed By: #### L 700.6800, L501.2450, L100.0100, L501.5425, L500.4050 ####[facility] [address] [place], [address] Monocytes/100 WBC (Bld) 6.2 % Normal 0-10 [facility] Comment on above: Performed By: #### L 700.6800, L501.2450, L100.0100, L501.5425, L500.4050 ####[facility] [address] [place], [address] Neutrophils/100 WBC (Bld) 76.2 % High 47-70 [facility] Comment on above: Performed By: #### L 700.6800, L501.2450, L100.0100, L501.5425, L500.4050 ####[facility] [address] [place], [address] Nucleated RBC (Bld) [#/Vol] 0 10*3/uL Normal 0-5 [facility] Comment on above: Performed By: #### L 700.6800, L501.2450, L100.0100, L501.5425, L500.4050 ####[facility] [address] [place], [address] Platelet mean volume (Bld) [Entitic vol] 9.4 fL Normal 6.2-12.0 [facility] Comment on above: Performed By: #### L 700.6800, L501.2450, L100.0100, L501.5425, L500.4050 ####[facility] [address] [place], [address] Platelets (Bld) [#/Vol] 207 10*3/uL Normal 150-450 [facility] Comment on above: Performed By: #### L 700.6800, L501.2450, L100.0100, L501.5425, L500.4050 ####[facility] [address] [place], [address] RBC (Bld) [#/Vol] 4.52 10*6/uL Normal 4.2-5.4 [facility] Comment on above: Performed By: #### L 700.6800, L501.2450, L100.0100, L501.5425, L500.4050 ####[facility] [address] [place], [address] RDW SD 42.1 fl Normal 35.1-43.9 [facility] Comment on above: Performed By: #### L 700.6800, L501.2450, L100.0100, L501.5425, L500.4050 ####[facility] [address] [place], [address] WBC (Bld) [#/Vol] 6.3 10*3/uL Normal 4.4-11.0 [facility] Comment on above: Performed By: #### L 700.6800, L501.2450, L100.0100, L501.5425, L500.4050 ####[facility] [address] [place], [address] Chest 1 View (Portable)on Chest 1 View (Portable) Normal [facility] Clarity (U)Ordered By: Madhav Ibarra on 06-29-2024 Urine clarity Cloudy Clear [facility] Color (U)Ordered By: Davis Ibarra on 06-29-2024 Urine color determination Yellow Yellow [facility] Comprehensive Metabolic Prof ilon 06-29-2024 Albumin [Mass/Vol] 3.3 g/dL Normal 3.2-5.0 [facility] Comment on above: Order Comment: 1Y Performed By: #### L 700.6800, L501.2450, L100.0100, L501.5425, L500.4050 ####[facility] [address] [place], [address] Albumin/Globulin [Mass ratio] 0.8 {ratio} Low 0.9-2.4 [facility] Comment on above: Order Comment: 1Y Performed By: #### L 700.6800, L501.2450, L100.0100, L501.5425, L500.4050 ####[facility] [address] [place], [address] ALK P 113 U/L Normal 45-117 [facility] Comment on above: Order Comment: 1Y Performed By: #### L 700.6800, L501.2450, L100.0100, L501.5425, L500.4050 ####[facility] [address] [place], [address] ALT [Catalytic activity/Vol] 26 U/L Normal 13-56 [facility] Comment on above: Order Comment: 1Y Performed By: #### L 700.6800, L501.2450, L100.0100, L501.5425, L500.4050 ####[facility] [address] [place], [address] AST [Catalytic activity/Vol] 34 U/L Normal 15-37 [facility] Comment on above: Order Comment: 1Y Performed By: #### L 700.6800, L501.2450, L100.0100, L501.5425, L500.4050 ####[facility] [address] [place], [address] Bilirubin [Mass/Vol] 0.80 mg/dL Normal 0.20-1.00 [facility] Comment on above: Order Comment: 1Y Result Comment: For patients on eltrombopag therapy, use of Dimension [place] TBIL is not recommended. Performed By: #### L 700.6800, L501.2450, L100.0100, L501.5425, L500.4050 ####[facility] [address] [place], [address] BUN/CRE 27.6 RATIO High 10-20 [facility] Comment on above: Order Comment: 1Y Performed By: #### L 700.6800, L501.2450, L100.0100, L501.5425, L500.4050 ####[facility] [address] [place], [address] CA,Total 9.6 mg/dL Normal 8.5-10.1 [facility] Comment on above: Order Comment: 1Y Performed By: #### L 700.6800, L501.2450, L100.0100, L501.5425, L500.4050 ####[facility] [address] [place], [address] Chloride [Moles/Vol] 98 mmol/L Normal 98-107 [facility] Comment on above: Order Comment: 1Y Performed By: #### L 700.6800, L501.2450, L100.0100, L501.5425, L500.4050 ####[facility] [address] [place], [address] CO2 [Moles/Vol] 25.0 mmol/L Normal 21.0-32.0 [facility] Comment on above: Order Comment: 1Y Performed By: #### L 700.6800, L501.2450, L100.0100, L501.5425, L500.4050 ####[facility] [address] [place], [address] Creatinine [Mass/Vol] 0.91 mg/dL Normal 0.55-1.02 [facility] Comment on above: Order Comment: 1Y Result Comment: The validity of the calculated GFR GFRAA in patients over70 years has not been determined. Clinical correlation isessential. Performed By: #### L 700.6800, L501.2450, L100.0100, L501.5425, L500.4050 ####[facility] [address] [place], [address] ECRCL 79.48 ml/min Normal [facility] Comment on above: Order Comment: 1Y Performed By: #### L 700.6800, L501.2450, L100.0100, L501.5425, L500.4050 ####[facility] [address] [place], [address] EST GFR - AA 84 mL/min Normal >60 [facility] Comment on above: Order Comment: 1Y Result Comment: Afri can Cypriot GFR Calc Performed By: #### L 700.6800, L501.2450, L100.0100, L501.5425, L500.4050 ####[facility] [address] [place], [address] GAP 9 Normal 5-15 [facility] Comment on above: Order Comment: 1Y Performed By: #### L 700.6800, L501.2450, L100.0100, L501.5425, L500.4050 ####[facility] [address] [place], [address] GFR/1.73 sq M.predicted among non-blacks MDRD (S/P/Bld) [Vol rate/Area] 69 mL/min/{1.73_m2} Normal >60 [facility] Comment on above: Order Comment: 1Y Result Comment: Non- GFR Calc Performed By: #### L 700.6800, L501.2450, L100.0100, L501.5425, L500.4050 ####[facility] [address] [place], [address] Globulin (S) [Mass/Vol] 4.4 g/dL High 2.2-4.2 [facility] Comment on above: Order Comment: 1Y Performed By: #### L 700.6800, L501.2450, L100.0100, L501.5425, L500.4050 ####[facility] [address] [place], [address] Glucose [Mass/Vol] 363 mg/dL High 74-106 [facility] Comment on above: Order Comment: 1Y Result Comment: Gluc ose result greater than or equal to 200 mg/dLsuggests DIABETES MELLITUS per A.D.A. criteria. Performed By: #### L 700.6800, L501.2450, L100.0100, L501.5425, L500.4050 ####[facility] [address] [place], [address] Potassium [Moles/Vol] 3.6 mmol/L Normal 3.5-5.1 [facility] Comment on above: Order Comment: 1Y Performed By: #### L 700.6800, L501.2450, L100.0100, L501.5425, L500.4050 ####[facility] [address] [place], [address] Sodium [Moles/Vol] 131 mmol/L Low 136-145 [facility] Comment on above: Order Comment: 1Y Performed By: #### L 700.6800, L501.2450, L100.0100, L501.5425, L500.4050 ####[facility] [address] [place], [address] T PROT 7.7 g/dL Normal 6.4-8.2 [facility] Comment on above: Order Comment: 1Y Performed By: #### L 700.6800, L501.2450, L100.0100, L501.5425, L500.4050 ####[facility] [address] [place], [address] Urea nitrogen [Mass/Vol] 25 mg/dL High 7-18 [facility] Comment on above: Order Comment: 1Y Performed By: #### L 700.6800, L501.2450, L100.0100, L501.5425, L500.4050 ####[facility] [address] [place], [address] Emergency Department Summary on 06-29-2024 Emergency Department Summary Normal [facility] Glucose Ql (U)Ordered By: Matt Ibarra on 06-29-2024 Urine glucose detection 1000 mg/dl High Normal [facility] H AND P Exam - Hospitaliston 06-29-2024 H&P Exam - Hospitalist Normal [facility] L501.5425on 06-29-2024 TROPONIN-I HS 28 pg/mL Normal 3.0-54.0 [facility] Comment on above: Order Comment: 1Y Result Comment: Plea se Note: New Test Units and Gender Specific Reference Ranges. For more information see Policy Stat Procedure [place] High Sensitivity Troponin (TNIH) and attachments. Performed By: #### L 700.6800, L501.2450, L100.0100, L501.5425, L500.4050 ####[facility] [address] [place], [place], [address] Leukocyte esterase Test stri p Ql (U)Ordered By: Davis Ibarra on 06-29-2024 Urine leukocyte esterase detection by dipstick 500 /ul High Negative [facility] Lipaseon 06-29-2024 Lipase [Catalytic activity/Vol] 23 U/L Normal 13-75 [facility] Comment on above: Order Comment: 1Y Result Comment: Plea se note:LIPASE revised reference range effective 22.New Lipase methodology. Expected to produce lower valuesthan the previous assay method.NEW Reference Range: 13 - 75 U/L Performed By: #### L 700.6800, L501.2450, L100.0100, L501.5425, L500.4050 ####[facility] [address] [place], [place], [address] Lipase measurementOrdered By : Davis Ibarra on 06-29-2024 Lipase measurement 23 U/L 13-75 [facility] Microscopic analysis of urin e for red blood cells (RBC)Ordered By: Davis Ibarra on 06-29-2024 Microscopic analysis of urine for red blood cells (RBC) 0-5 SEEN /hpf 5-10 [facility] Mucus LM Ql (Urine sed)Order ed By: Davis Ibarra on 06-29-2024 Mucus detection in urine sediment by light microscopy 1+ /hpf [facility] Nitrite Test strip Ql (U)Ord ered By: Davis Ibarra on 06-29-2024 Urine nitrite test by dipstick Positive High Negative [facility] ,Serum,hCG Quali.on 06-29-2024 HCG, SERUM QUAL Negative Normal [facility] Comment on above: Performed By: #### L 700.6800, L501.2450, L100.0100, L501.5425, L500.4050 ####[facility] [address] [place], [address] Protein Test strip Ql (U)Ord ered By: Davis Ibarra on 06-29-2024 Urine protein assay by test strip, semi-quantitative 100 mg/dl High Negative [facility] Specific gravity (U) [Rel de nsity]Ordered By: Davis Ibarra on 06-29-2024 Urine specific gravity measurement 1.015 1.002-1.03 0 [facility] Tropinin I.cardiac panel Hig h sensitivity methodOrdered By: Davis Ibarra on 06-29-2024 Serum or plasma cardiac troponin I panel by high sensitivity method 28 pg/mL 3.0-54.0 [facility] Urinalysis, Completeon 06-29 BACTERIA 3+ /hpf Normal None Seen [facility] Comment on above: Order Comment: CLEAN CATCH Performed By: #### L 400.0001 ####[facility] [address] [place], [address] EPI,SQUAMOUS 0-5 SEEN Normal 5-10 [facility] Comment on above: Order Comment: CLEAN CATCH Performed By: #### L 400.0001 ####[facility] [address] [place], [address] Mucus Ql (Urine sed) 1+ /hpf Normal [facility] Comment on above: Order Comment: CLEAN CATCH Performed By: #### L 400.0001 ####[facility] [address] [place], [address] RBC 0-5 SEEN Normal 0-5 [facility] Comment on above: Order Comment: CLEAN CATCH Performed By: #### L 400.0001 ####[facility] [address] [place], [place], [address] WBC 10-25 SEEN Normal 0-5 [facility] Comment on above: Order Comment: CLEAN CATCH Performed By: #### L 400.0001 ####[facility] [address] [place], [place], [id number] Urine blood detectionOrdered By: Davis Ibarra on 06-29-2024 Urine blood detection 50 /ul High Negative [facility] Urine cultureOrdered By: [place] on 06-29-2024 Urine culture ESBL Escherichia coli Abnormal [facility] Urine total bilirubin detect ion by test stripOrdered By: Davis Ibarra on 06-29-2024 Urine total bilirubin detection by test strip Negative Negative [facility] Urobilinogen Ql (U)Ordered B y: Davis Ibarra on 06-29-2024 Urine urobilinogen measurement Normal mg/dl Normal [facility] White blood cell countOrdere d By: Davis Ibarra on 06-29-2024 White blood cell count 10-25 SEEN /hpf 0-5 [facility] pH (U)Ordered By: Adrien on 06-29-2024 Urine pH 6.0 5.0 - 8.0 [facility] .Auto Diffon 05-23-2024 Basophil, Absolute 0.1 10 3/mcL Normal 0.0-0.2 [facility] Comment on above: Performed By: #### C BC, MORPH, CMP, TROPHS, ADIFF, GFR, LIP, MDW, ANEU #### [address] [address] Basophils/100 WBC (Bld) 0.8 % Normal 0.0-2.5 [facility] Comment on above: Performed By: #### C BC, MORPH, CMP, TROPHS, ADIFF, GFR, LIP, MDW, ANEU #### [address] [place], [place] [address] Eosinophil, Absolute 0.2 10 3/mcL Normal 0.0-0.7 [facility] Comment on above: Performed By: #### C BC, MORPH, CMP, TROPHS, ADIFF, GFR, LIP, MDW, ANEU #### [address] [address] Eosinophils/100 WBC (Bld) 1.1 % Normal 0.0-7.0 [facility] Comment on above: Performed By: #### C BC, MORPH, CMP, TROPHS, ADIFF, GFR, LIP, MDW, ANEU #### [address] [address] Lymphocyte, Absolute 1.7 10 3/mcL Normal 0.9-4.3 [facility] Comment on above: Performed By: #### C BC, MORPH, CMP, TROPHS, ADIFF, GFR, LIP, MDW, ANEU #### [address] [address] Lymphocytes/100 WBC (Bld) 11.5 % Low 20.0-40.0 [facility] Comment on above: Performed By: #### C BC, MORPH, CMP, TROPHS, ADIFF, GFR, LIP, MDW, ANEU #### [address] [address] Monocyte, Absolute 0.9 10 3/mcL Normal 0.1-1.4 [facility] Comment on above: Performed By: #### C BC, MORPH, CMP, TROPHS, ADIFF, GFR, LIP, MDW, ANEU #### [address] [address] Monocytes/100 WBC (Bld) 6.2 % Normal 2.0-13.0 [facility] Comment on above: Performed By: #### C BC, MORPH, CMP, TROPHS, ADIFF, GFR, LIP, MDW, ANEU #### [address] [address] Neutrophils/100 WBC (Bld) 80.4 % High 50.0-75.0 [facility] Comment on above: Performed By: #### C BC, MORPH, CMP, TROPHS, ADIFF, GFR, LIP, MDW, ANEU #### [address] [address] .GFRon 05-23-2024 GFR Non- 26 ml/min/1.73sqm Normal [facility] Comment on above: Result Comment: GFR Population [...] TROPHS, ADIFF, GFR, LIP, MDW, ANEU #### [address] [address] GFR 31 ml/min/1.73sqm Normal [facility] Comment on above: Result Comment: GFR Population [...] TROPHS, ADIFF, GFR, LIP, MDW, ANEU #### [address] [address] .MDWon 05-23-2024 Monocyte Distribution Width 18.96 Normal 0.00-20.00 [facility] Comment on above: Result Comment: For ED adult patients suspected of sepsis, MDW<=20.0 does not rule out sepsis or risk of sepsis Performed By: #### C BC, MORPH, CMP, TROPHS, ADIFF, GFR, LIP, MDW, ANEU #### [place] [address] .Morphon 05-23-2024 Platelet Estimate Normal Normal [facility] Comment on above: Performed By: #### C BC, MORPH, CMP, TROPHS, ADIFF, GFR, LIP, MDW, ANEU #### [place] [address] .NEUABSon 05-23-2024 Neutrophil, Absolute 11.7 10 3/mcL High 2.3-8.1 [facility] Comment on above: Performed By: #### C BC, MORPH, CMP, TROPHS, ADIFF, GFR, LIP, MDW, ANEU #### [place] [address] CBCon 05-23-2024 Erythrocyte distribution width (RBC) [Ratio] 15.3 % Normal 11.5-15.5 [facility] Comment on above: Performed By: #### C BC, MORPH, CMP, TROPHS, ADIFF, GFR, LIP, MDW, ANEU #### [place] [address] Hematocrit (Bld) [Volume fraction] 35.1 % Normal 34.0-46.0 [facility] Comment on above: Performed By: #### C BC, MORPH, CMP, TROPHS, ADIFF, GFR, LIP, MDW, ANEU #### [place] [address] Hgb 11.3 G/dL Low 12.0-16.0 [facility] Comment on above: Performed By: #### C BC, MORPH, CMP, TROPHS, ADIFF, GFR, LIP, MDW, ANEU #### [place] [address] MCH (RBC) [Entitic mass] 27.2 pg Normal 27.0-33.0 [facility] Comment on above: Performed By: #### C BC, MORPH, CMP, TROPHS, ADIFF, GFR, LIP, MDW, ANEU #### [address] [address] MCHC 32.3 G/dL Normal 32.0-36.0 [facility] Comment on above: Performed By: #### C BC, MORPH, CMP, TROPHS, ADIFF, GFR, LIP, MDW, ANEU #### [address] [address] MCV (RBC) [Entitic vol] 84.2 fL Normal 80.0-99.0 [facility] Comment on above: Performed By: #### C BC, MORPH, CMP, TROPHS, ADIFF, GFR, LIP, MDW, ANEU #### [address] [address] Platelet 229 10 3/mcL Normal 150-450 [facility] Comment on above: Performed By: #### C BC, MORPH, CMP, TROPHS, ADIFF, GFR, LIP, MDW, ANEU #### [address] [address] Platelet mean volume (Bld) [Entitic vol] 7.3 fL Normal 6.6-10.5 [facility] Comment on above: Performed By: #### C BC, MORPH, CMP, TROPHS, ADIFF, GFR, LIP, MDW, ANEU #### [address] [address] RBC 4.17 10 6/mcL Normal 4.10-5.30 [facility] Comment on above: Performed By: #### C BC, MORPH, CMP, TROPHS, ADIFF, GFR, LIP, MDW, ANEU #### [address] [address] WBC 14.5 10 3/mcL High 4.5-10.8 [facility] Comment on above: Performed By: #### C BC, MORPH, CMP, TROPHS, ADIFF, GFR, LIP, MDW, ANEU #### [address] [address] CMPon 05-23-2024 Albumin Level 2.7 G/dL Low 3.5-5.0 [facility] Comment on above: Order Comment: 05/23 20:12:51 EST hemolyzed. EH Performed By: #### C BC, MORPH, CMP, TROPHS, ADIFF, GFR, LIP, MDW, ANEU #### [address] [address] Albumin/Globulin [Mass ratio] 0.7 {ratio} Low 1.1-2.5 [facility] Comment on above: Order Comment: 05/23 20:12:51 EST hemolyzed. EH Performed By: #### C BC, MORPH, CMP, TROPHS, ADIFF, GFR, LIP, MDW, ANEU #### [address] [address] ALP [Catalytic activity/Vol] 128 U/L Normal 40-135 [facility] Comment on above: Order Comment: 05/23 20:12:51 EST hemolyzed. EH Performed By: #### C BC, MORPH, CMP, TROPHS, ADIFF, GFR, LIP, MDW, ANEU #### [address] [address] ALT [Catalytic activity/Vol] 22 U/L Normal 14-59 [facility] Comment on above: Order Comment: 05/23 20:12:51 EST hemolyzed. EH Performed By: #### C BC, MORPH, CMP, TROPHS, ADIFF, GFR, LIP, MDW, ANEU #### [address] [address] AST [Catalytic activity/Vol] 21 U/L Normal 10-40 [facility] Comment on above: Order Comment: 05/23 20:12:51 EST hemolyzed. EH Performed By: #### C BC, MORPH, CMP, TROPHS, ADIFF, GFR, LIP, MDW, ANEU #### [address] [address] Bili Total 0.9 mg/dL Normal 0.2-1.0 [facility] Comment on above: Order Comment: 05/23 20:12:51 EST hemolyzed. EH Result Comment: Use of this assay is not recommended for patients undergoing treatment with eltrombopag due to the potential for falsely elevated results. Performed By: #### C BC, MORPH, CMP, TROPHS, ADIFF, GFR, LIP, MDW, ANEU #### [address] [address] BUN/Creatinine Ratio 20 ratio Normal 7-27 [facility] Comment on above: Order Comment: 05/23 20:12:51 EST hemolyzed. EH Performed By: #### C BC, MORPH, CMP, TROPHS, ADIFF, GFR, LIP, MDW, ANEU #### [address] [address] Calcium [Mass/Vol] 8.7 mg/dL Normal 8.4-10.2 [facility] Comment on above: Order Comment: 05/23 20:12:51 EST hemolyzed. EH Performed By: #### C BC, MORPH, CMP, TROPHS, ADIFF, GFR, LIP, MDW, ANEU #### [address] [address] Chloride [Moles/Vol] 102 mmol/L Normal 98-107 [facility] Comment on above: Order Comment: 05/23 20:12:51 EST hemolyzed. EH Performed By: #### C BC, MORPH, CMP, TROPHS, ADIFF, GFR, LIP, MDW, ANEU #### [address] [address] CO2 [Moles/Vol] 24 mmol/L Normal 22-29 [facility] Comment on above: Order Comment: 05/23 20:12:51 EST hemolyzed. EH Performed By: #### C BC, MORPH, CMP, TROPHS, ADIFF, GFR, LIP, MDW, ANEU #### [address] [address] Creatinine [Mass/Vol] 2.02 mg/dL High 0.55-1.02 [facility] Comment on above: Order Comment: 05/23 20:12:51 EST hemolyzed. EH Result Comment: Test ing performed on Siemens Dimension EXL analyzer using a modified kinetic Breanne technique. Performed By: #### C BC, MORPH, CMP, TROPHS, ADIFF, GFR, LIP, MDW, ANEU #### [address] [address] Electrolyte Balance 8.0 mEq/L Normal 4.0-15.0 [facility] Comment on above: Order Comment: 05/23 20:12:51 EST hemolyzed. EH Performed By: #### C BC, MORPH, CMP, TROPHS, ADIFF, GFR, LIP, MDW, ANEU #### [address] [address] Globulin 4.0 G/dL Normal [facility] Comment on above: Order Comment: 05/23 20:12:51 EST hemolyzed. EH Performed By: #### C BC, MORPH, CMP, TROPHS, ADIFF, GFR, LIP, MDW, ANEU #### [address] [address] Glucose [Mass/Vol] 181 mg/dL High 70-105 [facility] Comment on above: Order Comment: 05/23 20:12:51 EST hemolyzed. EH Performed By: #### C BC, MORPH, CMP, TROPHS, ADIFF, GFR, LIP, MDW, ANEU #### [address] [address] Potassium [Moles/Vol] 5.2 mmol/L High 3.5-5.1 [facility] Comment on above: Order Comment: 05/23 20:12:51 EST hemolyzed. EH Performed By: #### C BC, MORPH, CMP, TROPHS, ADIFF, GFR, LIP, MDW, ANEU #### [address] [address] Sodium [Moles/Vol] 134 mmol/L Low 136-145 [facility] Comment on above: Order Comment: 05/23 20:12:51 EST hemolyzed. EH Performed By: #### C BC, MORPH, CMP, TROPHS, ADIFF, GFR, LIP, MDW, ANEU #### [address] [address] Total Protein 6.7 G/dL Normal 6.4-8.2 [facility] Comment on above: Order Comment: 05/23 20:12:51 EST hemolyzed. EH Performed By: #### C BC, MORPH, CMP, TROPHS, ADIFF, GFR, LIP, MDW, ANEU #### [address] [address] Urea nitrogen [Mass/Vol] 40 mg/dL High 7-18 [facility] Comment on above: Order Comment: 05/23 20:12:51 EST hemolyzed. EH Performed By: #### C BC, MORPH, CMP, TROPHS, ADIFF, GFR, LIP, MDW, ANEU #### [address] [address] LABORATORYOrdered By: SYSTEM SYSTEM on 05-23-2024 Albumin [...] ng/L Male: 0-76 ng/L Testing performed on Shots using a homogeneous sandwich chemiluminescent immunoassay based on [employer] technology. LABORATORYOrdered By: Yohana Easley on 05-23-2024 Platelets LM Ql (Bld) Normal (05/23/24 8:06 PM) Normal [facility] S LIPon 05-23-2024 Lipase Level 56 U/L Normal 16-77 [facility] Comment on above: Performed By: #### C BC, MORPH, CMP, TROPHS, ADIFF, GFR, LIP, MDW, ANEU #### [place] [id number] TROPHSon 05-23-2024 High Sensitivity Troponin I 18 ng/L Normal 0-51 [facility] Comment on above: Result Comment: High Sensitive Troponin I Reference Ranges: Female: 0-51 ng/L Male: 0-76 ng/L Testing performed on Shots using a homogeneous sandwich chemiluminescent immunoassay based on [employer] technology. Performed By: #### C BC, MORPH, CMP, TROPHS, ADIFF, GFR, LIP, MDW, ANEU #### [address] [place], [place] [address] Basic Metabolic Profile (BMP )on 05-06-2024 BUN Normal 7-18 [facility] Comment on above: Result Comment: Canc elled via OM: Order cancelled - Patient discharged Performed By: #### L 100.0100, L500.2500 ####[facility] [address] [place], [address] BUN/CRE Normal -20 [facility] Comment on above: Result Comment: Canc elled via OM: Order cancelled - Patient discharged Performed By: #### L 100.0100, L500.2500 ####[facility] [address] [place], [address] CA,Total Normal 8.5-10.1 [facility] Comment on above: Result Comment: Canc elled via OM: Order cancelled - Patient discharged Performed By: #### L 100.0100, L500.2500 ####[facility] [address] [place], [address] CL Normal 98-107 [facility] Comment on above: Result Comment: Canc elled via OM: Order cancelled - Patient discharged Performed By: #### L 100.0100, L500.2500 ####[facility] [address] [place], [address] CO2 Normal 21.0-32.0 [facility] Comment on above: Result Comment: Canc elled via OM: Order cancelled - Patient discharged Performed By: #### L 100.0100, L500.2500 ####[facility] [address] [place], [address] CREAT,SERUM Normal 0.55-1.02 [facility] Comment on above: Result Comment: Canc elled via OM: Order cancelled - Patient discharged Performed By: #### L 100.0100, L500.2500 ####[facility] [address] [place], [address] EST GFR Normal >60 [facility] Comment on above: Result Comment: Canc elled via OM: Order cancelled - Patient discharged Performed By: #### L 100.0100, L500.2500 ####[facility] [address] [place], [address] EST GFR - AA Normal >60 [facility] Comment on above: Result Comment: Canc elled via OM: Order cancelled - Patient discharged Performed By: #### L 100.0100, L500.2500 ####[facility] [address] [place], [address] GAP Normal 5-15 [facility] Comment on above: Result Comment: Canc elled via OM: Order cancelled - Patient discharged Performed By: #### L 100.0100, L500.2500 ####[facility] [address] [place], [address] GLU Normal 74-106 [facility] Comment on above: Result Comment: Canc elled via OM: Order cancelled - Patient discharged Performed By: #### L 100.0100, L500.2500 ####[facility] [address] [place], [address] Potassium Normal 3.5-5.1 [facility] Comment on above: Result Comment: Canc elled via OM: Order cancelled - Patient discharged Performed By: #### L 100.0100, L500.2500 ####[facility] [address] [place], [address] Basic Metabolic Profile (BMP) Normal 136-145 [facility] Comment on above: Result Comment: Canc elled via OM: Order cancelled - Patient discharged Performed By: #### L 100.0100, L500.2500 ####[facility] [address] [place], [address] CBC W/Diff, Automatedon 12-0 Absolute Neut Normal 2.0-7.7 [facility] Comment on above: Result Comment: Canc elled via OM: Order cancelled - Patient discharged Performed By: #### L 100.0100, L500.2500 ####[facility] [address] [place], [address] HCT Normal 37-47 [facility] Comment on above: Result Comment: Canc elled via OM: Order cancelled - Patient discharged Performed By: #### L 100.0100, L500.2500 ####[facility] [address] [place], [address] HGB Normal 12.0-15.0 [facility] Comment on above: Result Comment: Canc elled via OM: Order cancelled - Patient discharged Performed By: #### L 100.0100, L500.2500 ####[facility] [address] [place], [address] MCH Normal 27.0-32.0 [facility] Comment on above: Result Comment: Canc elled via OM: Order cancelled - Patient discharged Performed By: #### L 100.0100, L500.2500 ####[facility] [address] [place], [address] MCHC Normal 32-36 [facility] Comment on above: Result Comment: Canc elled via OM: Order cancelled - Patient discharged Performed By: #### L 100.0100, L500.2500 ####[facility] [address] [place], [address] MCV Normal 81-99 [facility] Comment on above: Result Comment: Canc elled via OM: Order cancelled - Patient discharged Performed By: #### L 100.0100, L500.2500 ####[facility] [address] [place], [address] NEUT% Normal 47-70 [facility] Comment on above: Result Comment: Canc elled via OM: Order cancelled - Patient discharged Performed By: #### L 100.0100, L500.2500 ####[facility] [address] [place], [address] PLT Normal 150-450 [facility] Comment on above: Result Comment: Canc elled via OM: Order cancelled - Patient discharged Performed By: #### L 100.0100, L500.2500 ####[facility] [address] [place], [address] RBC Normal 4.2-5.4 [facility] Comment on above: Result Comment: Canc elled via OM: Order cancelled - Patient discharged Performed By: #### L 100.0100, L500.2500 ####[facility] [address] [place], [address] RDW CV Normal 11.6-14.6 [facility] Comment on above: Result Comment: Canc elled via OM: Order cancelled - Patient discharged Performed By: #### L 100.0100, L500.2500 ####[facility] [address] [place], [address] RDW SD Normal 35.1-43.9 [facility] Comment on above: Result Comment: Canc elled via OM: Order cancelled - Patient discharged Performed By: #### L 100.0100, L500.2500 ####[facility] [address] [place], [address] WBC Normal 4.4-11.0 [facility] Comment on above: Result Comment: Canc elled via OM: Order cancelled - Patient discharged Performed By: #### L 100.0100, L500.2500 ####[facility] [address] [place], [address] Basic Metabolic Profile (BMP )on 05-05-2024 BUN Normal 7-18 [facility] Comment on above: Result Comment: Canc elled via OM: Order cancelled - Patient discharged Performed By: #### L 100.0100, L500.2500 ####[facility] [address] [place], [address] BUN/CRE Normal 10-20 [facility] Comment on above: Result Comment: Canc elled via OM: Order cancelled - Patient discharged Performed By: #### L 100.0100, L500.2500 ####[facility] [address] [place], [address] CA,Total Normal 8.5-10.1 [facility] Comment on above: Result Comment: Canc elled via OM: Order cancelled - Patient discharged Performed By: #### L 100.0100, L500.2500 ####[facility] [address] [place], [address] CL Normal 98-107 [facility] Comment on above: Result Comment: Canc elled via OM: Order cancelled - Patient discharged Performed By: #### L 100.0100, L500.2500 ####[facility] [address] [place], [address] CO2 Normal 21.0-32.0 [facility] Comment on above: Result Comment: Canc elled via OM: Order cancelled - Patient discharged Performed By: #### L 100.0100, L500.2500 ####[facility] [address] [place], [address] CREAT,SERUM Normal 0.55-1.02 [facility] Comment on above: Result Comment: Canc elled via OM: Order cancelled - Patient discharged Performed By: #### L 100.0100, L500.2500 ####[facility] [address] [place], [address] EST GFR Normal >60 [facility] Comment on above: Result Comment: Canc elled via OM: Order cancelled - Patient discharged Performed By: #### L 100.0100, L500.2500 ####[facility] [address] [place], [address] EST GFR - AA Normal >60 [facility] Comment on above: Result Comment: Canc elled via OM: Order cancelled - Patient discharged Performed By: #### L 100.0100, L500.2500 ####[facility] [address] [place], [address] GAP Normal 5-15 [facility] Comment on above: Result Comment: Canc elled via OM: Order cancelled - Patient discharged Performed By: #### L 100.0100, L500.2500 ####[facility] [address] [place], [address] GLU Normal 74-106 [facility] Comment on above: Result Comment: Canc elled via OM: Order cancelled - Patient discharged Performed By: #### L 100.0100, L500.2500 ####[facility] [address] [place], [address] Potassium Normal 3.5-5.1 [facility] Comment on above: Result Comment: Canc elled via OM: Order cancelled - Patient discharged Performed By: #### L 100.0100, L500.2500 ####[facility] [address] [place], [address] Basic Metabolic Profile (BMP) Normal 136-145 [facility] Comment on above: Result Comment: Canc elled via OM: Order cancelled - Patient discharged Performed By: #### L 100.0100, L500.2500 ####[facility] [address] [place], [address] CBC W/Diff, Automatedon 12-0 Absolute Neut Normal 2.0-7.7 [facility] Comment on above: Result Comment: Canc elled via OM: Order cancelled - Patient discharged Performed By: #### L 100.0100, L500.2500 ####[facility] [address] [place], [address] HCT Normal 37-47 [facility] Comment on above: Result Comment: Canc elled via OM: Order cancelled - Patient discharged Performed By: #### L 100.0100, L500.2500 ####[facility] [address] [place], [address] HGB Normal 12.0-15.0 [facility] Comment on above: Result Comment: Canc elled via OM: Order cancelled - Patient discharged Performed By: #### L 100.0100, L500.2500 ####[facility] [address] [place], [address] MCH Normal 27.0-32.0 [facility] Comment on above: Result Comment: Canc elled via OM: Order cancelled - Patient discharged Performed By: #### L 100.0100, L500.2500 ####[facility] [address] [place], [address] MCHC Normal 32-36 [facility] Comment on above: Result Comment: Canc elled via OM: Order cancelled - Patient discharged Performed By: #### L 100.0100, L500.2500 ####[facility] [address] [place], [address] MCV Normal 81-99 [facility] Comment on above: Result Comment: Canc elled via OM: Order cancelled - Patient discharged Performed By: #### L 100.0100, L500.2500 ####[facility] [address] [place], [address] NEUT% Normal 47-70 [facility] Comment on above: Result Comment: Canc elled via OM: Order cancelled - Patient discharged Performed By: #### L 100.0100, L500.2500 ####[facility] [address] [place], [address] PLT Normal 150-450 [facility] Comment on above: Result Comment: Canc elled via OM: Order cancelled - Patient discharged Performed By: #### L 100.0100, L500.2500 ####[facility] [address] [place], [address] RBC Normal 4.2-5.4 [facility] Comment on above: Result Comment: Canc elled via OM: Order cancelled - Patient discharged Performed By: #### L 100.0100, L500.2500 ####[facility] [address] [place], [address] RDW CV Normal 11.6-14.6 [facility] Comment on above: Result Comment: Canc elled via OM: Order cancelled - Patient discharged Performed By: #### L 100.0100, L500.2500 ####[facility] [address] [place], [address] RDW SD Normal 35.1-43.9 [facility] Comment on above: Result Comment: Canc elled via OM: Order cancelled - Patient discharged Performed By: #### L 100.0100, L500.2500 ####[facility] [address] [place], [address] WBC Normal 4.4-11.0 [facility] Comment on above: Result Comment: Canc elled via OM: Order cancelled - Patient discharged Performed By: #### L 100.0100, L500.2500 ####[facility] [address] [place], [address] Basic Metabolic Profile (BMP )on 05-04-2024 BUN Normal 7-18 [facility] Comment on above: Result Comment: Canc elled via OM: Order cancelled - Patient discharged Performed By: #### L 100.0100, L500.2500 ####[facility] [address] [place], [address] BUN/CRE Normal 10-20 [facility] Comment on above: Result Comment: Canc elled via OM: Order cancelled - Patient discharged Performed By: #### L 100.0100, L500.2500 ####[facility] [address] [place], [address] CA,Total Normal 8.5-10.1 [facility] Comment on above: Result Comment: Canc elled via OM: Order cancelled - Patient discharged Performed By: #### L 100.0100, L500.2500 ####[facility] [address] [place], [address] CL Normal 98-107 [facility] Comment on above: Result Comment: Canc elled via OM: Order cancelled - Patient discharged Performed By: #### L 100.0100, L500.2500 ####[facility] [address] [place], [address] CO2 Normal 21.0-32.0 [facility] Comment on above: Result Comment: Canc elled via OM: Order cancelled - Patient discharged Performed By: #### L 100.0100, L500.2500 ####[facility] [address] [place], [address] CREAT,SERUM Normal 0.55-1.02 [facility] Comment on above: Result Comment: Canc elled via OM: Order cancelled - Patient discharged Performed By: #### L 100.0100, L500.2500 ####[facility] [address] [place], [address] EST GFR Normal >60 [facility] Comment on above: Result Comment: Canc elled via OM: Order cancelled - Patient discharged Performed By: #### L 100.0100, L500.2500 ####[facility] [address] [place], [address] EST GFR - AA Normal >60 [facility] Comment on above: Result Comment: Canc elled via OM: Order cancelled - Patient discharged Performed By: #### L 100.0100, L500.2500 ####[facility] [address] [place], [address] GAP Normal 5-15 [facility] Comment on above: Result Comment: Canc elled via OM: Order cancelled - Patient discharged Performed By: #### L 100.0100, L500.2500 ####[facility] [address] [place], [address] GLU Normal 74-106 [facility] Comment on above: Result Comment: Canc elled via OM: Order cancelled - Patient discharged Performed By: #### L 100.0100, L500.2500 ####[facility] [address] [place], [address] Potassium Normal 3.5-5.1 [facility] Comment on above: Result Comment: Canc elled via OM: Order cancelled - Patient discharged Performed By: #### L 100.0100, L500.2500 ####[facility] [address] [place], [address] Basic Metabolic Profile (BMP) Normal 136-145 [facility] Comment on above: Result Comment: Canc elled via OM: Order cancelled - Patient discharged Performed By: #### L 100.0100, L500.2500 ####[facility] [address] [place], [address] CBC W/Diff, Automatedon 12-0 Absolute Neut Normal 2.0-7.7 [facility] Comment on above: Result Comment: Canc elled via OM: Order cancelled - Patient discharged Performed By: #### L 100.0100, L500.2500 ####[facility] [address] [place], [address] HCT Normal 37-47 [facility] Comment on above: Result Comment: Canc elled via OM: Order cancelled - Patient discharged Performed By: #### L 100.0100, L500.2500 ####[facility] [address] [place], [address] HGB Normal 12.0-15.0 [facility] Comment on above: Result Comment: Canc elled via OM: Order cancelled - Patient discharged Performed By: #### L 100.0100, L500.2500 ####[facility] [address] [place], [address] MCH Normal 27.0-32.0 [facility] Comment on above: Result Comment: Canc elled via OM: Order cancelled - Patient discharged Performed By: #### L 100.0100, L500.2500 ####[facility] [address] [place], [address] MCHC Normal 32-36 [facility] Comment on above: Result Comment: Canc elled via OM: Order cancelled - Patient discharged Performed By: #### L 100.0100, L500.2500 ####[facility] [address] [place], [address] MCV Normal 81-99 [facility] Comment on above: Result Comment: Canc elled via OM: Order cancelled - Patient discharged Performed By: #### L 100.0100, L500.2500 ####[facility] [address] [place], [address] NEUT% Normal 47-70 [facility] Comment on above: Result Comment: Canc elled via OM: Order cancelled - Patient discharged Performed By: #### L 100.0100, L500.2500 ####[facility] [address] [place], [address] PLT Normal 150-450 [facility] Comment on above: Result Comment: Canc elled via OM: Order cancelled - Patient discharged Performed By: #### L 100.0100, L500.2500 ####[facility] [address] [place], [address] RBC Normal 4.2-5.4 [facility] Comment on above: Result Comment: Canc elled via OM: Order cancelled - Patient discharged Performed By: #### L 100.0100, L500.2500 ####[facility] [address] [place], [address] RDW CV Normal 11.6-14.6 [facility] Comment on above: Result Comment: Canc elled via OM: Order cancelled - Patient discharged Performed By: #### L 100.0100, L500.2500 ####[facility] [address] [place], [address] RDW SD Normal 35.1-43.9 [facility] Comment on above: Result Comment: Canc elled via OM: Order cancelled - Patient discharged Performed By: #### L 100.0100, L500.2500 ####[facility] [address] [place], [address] WBC Normal 4.4-11.0 [facility] Comment on above: Result Comment: Canc elled via OM: Order cancelled - Patient discharged Performed By: #### L 100.0100, L500.2500 ####[facility] [address] [place], [address] Basic Metabolic Profile (BMP )on 05-03-2024 BUN Normal 7-18 [facility] Comment on above: Result Comment: Canc elled via OM: Order cancelled - Patient discharged Performed By: #### L 500.2500, L100.0100 ####[facility] [address] [place], [address] BUN/CRE Normal 10-20 [facility] Comment on above: Result Comment: Canc elled via OM: Order cancelled - Patient discharged Performed By: #### L 500.2500, L100.0100 ####[facility] [address] [place], [address] CA,Total Normal 8.5-10.1 [facility] Comment on above: Result Comment: Canc elled via OM: Order cancelled - Patient discharged Performed By: #### L 500.2500, L100.0100 ####[facility] [address] [place], [address] CL Normal 98-107 [facility] Comment on above: Result Comment: Canc elled via OM: Order cancelled - Patient discharged Performed By: #### L 500.2500, L100.0100 ####[facility] [address] [place], [address] CO2 Normal 21.0-32.0 [facility] Comment on above: Result Comment: Canc elled via OM: Order cancelled - Patient discharged Performed By: #### L 500.2500, L100.0100 ####[facility] [address] [place], [address] CREAT,SERUM Normal 0.55-1.02 [facility] Comment on above: Result Comment: Canc elled via OM: Order cancelled - Patient discharged Performed By: #### L 500.2500, L100.0100 ####[facility] [address] [place], [address] EST GFR Normal >60 [facility] Comment on above: Result Comment: Canc elled via OM: Order cancelled - Patient discharged Performed By: #### L 500.2500, L100.0100 ####[facility] [address] [place], [address] EST GFR - AA Normal >60 [facility] Comment on above: Result Comment: Canc elled via OM: Order cancelled - Patient discharged Performed By: #### L 500.2500, L100.0100 ####[facility] [address] [place], [address] GAP Normal 5-15 [facility] Comment on above: Result Comment: Canc elled via OM: Order cancelled - Patient discharged Performed By: #### L 500.2500, L100.0100 ####[facility] [address] [place], [address] GLU Normal 74-106 [facility] Comment on above: Result Comment: Canc elled via OM: Order cancelled - Patient discharged Performed By: #### L 500.2500, L100.0100 ####[facility] [address] [place], [address] Potassium Normal 3.5-5.1 [facility] Comment on above: Result Comment: Canc elled via OM: Order cancelled - Patient discharged Performed By: #### L 500.2500, L100.0100 ####[facility] [address] [place], [address] Basic Metabolic Profile (BMP) Normal 136-145 [facility] Comment on above: Result Comment: Canc elled via OM: Order cancelled - Patient discharged Performed By: #### L 500.2500, L100.0100 ####[facility] [address] [place], [address] CBC W/Diff, Automatedon 11-3 0-2023 Absolute Neut Normal 2.0-7.7 [facility] Comment on above: Result Comment: Canc elled via OM: Order cancelled - Patient discharged Performed By: #### L 500.2500, L100.0100 ####[facility] [address] [place], [address] HCT Normal 37-47 [facility] Comment on above: Result Comment: Canc elled via OM: Order cancelled - Patient discharged Performed By: #### L 500.2500, L100.0100 ####[facility] [address] [place], [address] HGB Normal 12.0-15.0 [facility] Comment on above: Result Comment: Canc elled via OM: Order cancelled - Patient discharged Performed By: #### L 500.2500, L100.0100 ####[facility] [address] [place], [address] MCH Normal 27.0-32.0 [facility] Comment on above: Result Comment: Canc elled via OM: Order cancelled - Patient discharged Performed By: #### L 500.2500, L100.0100 ####[facility] [address] [place], [address] MCHC Normal 32-36 [facility] Comment on above: Result Comment: Canc elled via OM: Order cancelled - Patient discharged Performed By: #### L 500.2500, L100.0100 ####[facility] [address] [place], [address] MCV Normal 81-99 [facility] Comment on above: Result Comment: Canc elled via OM: Order cancelled - Patient discharged Performed By: #### L 500.2500, L100.0100 ####[facility] [address] [place], [address] NEUT% Normal 47-70 [facility] Comment on above: Result Comment: Canc elled via OM: Order cancelled - Patient discharged Performed By: #### L 500.2500, L100.0100 ####[facility] [address] [place], [address] PLT Normal 150-450 [facility] Comment on above: Result Comment: Canc elled via OM: Order cancelled - Patient discharged Performed By: #### L 500.2500, L100.0100 ####[facility] [address] [place], [address] RBC Normal 4.2-5.4 [facility] Comment on above: Result Comment: Canc elled via OM: Order cancelled - Patient discharged Performed By: #### L 500.2500, L100.0100 ####[facility] [address] [place], [address] RDW CV Normal 11.6-14.6 [facility] Comment on above: Result Comment: Canc elled via OM: Order cancelled - Patient discharged Performed By: #### L 500.2500, L100.0100 ####[facility] [address] [place], [address] RDW SD Normal 35.1-43.9 [facility] Comment on above: Result Comment: Canc elled via OM: Order cancelled - Patient discharged Performed By: #### L 500.2500, L100.0100 ####[facility] [address] [place], [address] WBC Normal 4.4-11.0 [facility] Comment on above: Result Comment: Canc elled via OM: Order cancelled - Patient discharged Performed By: #### L 500.2500, L100.0100 ####[facility] [address] [place], [address] Basic Metabolic Profile (BMP )on 05-02-2024 BUN Normal 7-18 [facility] Comment on above: Result Comment: Canc elled via OM: Order cancelled - Patient discharged Performed By: #### L 500.2500, L100.0100 ####[facility] [address] [place], [address] BUN/CRE Normal 10-20 [facility] Comment on above: Result Comment: Canc elled via OM: Order cancelled - Patient discharged Performed By: #### L 500.2500, L100.0100 ####[facility] [address] [place], [address] CA,Total Normal 8.5-10.1 [facility] Comment on above: Result Comment: Canc elled via OM: Order cancelled - Patient discharged Performed By: #### L 500.2500, L100.0100 ####[facility] [address] [place], [address] CL Normal 98-107 [facility] Comment on above: Result Comment: Canc elled via OM: Order cancelled - Patient discharged Performed By: #### L 500.2500, L100.0100 ####[facility] [address] [place], [address] CO2 Normal 21.0-32.0 [facility] Comment on above: Result Comment: Canc elled via OM: Order cancelled - Patient discharged Performed By: #### L 500.2500, L100.0100 ####[facility] [address] [place], [address] CREAT,SERUM Normal 0.55-1.02 [facility] Comment on above: Result Comment: Canc elled via OM: Order cancelled - Patient discharged Performed By: #### L 500.2500, L100.0100 ####[facility] [address] [place], [address] EST GFR Normal >60 [facility] Comment on above: Result Comment: Canc elled via OM: Order cancelled - Patient discharged Performed By: #### L 500.2500, L100.0100 ####[facility] [address] [place], [address] EST GFR - AA Normal >60 [facility] Comment on above: Result Comment: Canc elled via OM: Order cancelled - Patient discharged Performed By: #### L 500.2500, L100.0100 ####[facility] [address] [place], [address] GAP Normal 5-15 [facility] Comment on above: Result Comment: Canc elled via OM: Order cancelled - Patient discharged Performed By: #### L 500.2500, L100.0100 ####[facility] [address] [place], [address] GLU Normal 74-106 [facility] Comment on above: Result Comment: Canc elled via OM: Order cancelled - Patient discharged Performed By: #### L 500.2500, L100.0100 ####[facility] [address] [place], [address] Potassium Normal 3.5-5.1 [facility] Comment on above: Result Comment: Canc elled via OM: Order cancelled - Patient discharged Performed By: #### L 500.2500, L100.0100 ####[facility] [address] [place], [address] Basic Metabolic Profile (BMP) Normal 136-145 [facility] Comment on above: Result Comment: Canc elled via OM: Order cancelled - Patient discharged Performed By: #### L 500.2500, L100.0100 ####[facility] [address] [place], [address] CBC W/Diff, Automatedon 11-2 Absolute Neut Normal 2.0-7.7 [facility] Comment on above: Result Comment: Canc elled via OM: Order cancelled - Patient discharged Performed By: #### L 500.2500, L100.0100 ####[facility] [address] [place], [address] HCT Normal 37-47 [facility] Comment on above: Result Comment: Canc elled via OM: Order cancelled - Patient discharged Performed By: #### L 500.2500, L100.0100 ####[facility] [address] [place], [address] HGB Normal 12.0-15.0 [facility] Comment on above: Result Comment: Canc elled via OM: Order cancelled - Patient discharged Performed By: #### L 500.2500, L100.0100 ####[facility] [address] [place], [address] MCH Normal 27.0-32.0 [facility] Comment on above: Result Comment: Canc elled via OM: Order cancelled - Patient discharged Performed By: #### L 500.2500, L100.0100 ####[facility] [address] [place], [address] MCHC Normal 32-36 [facility] Comment on above: Result Comment: Canc elled via OM: Order cancelled - Patient discharged Performed By: #### L 500.2500, L100.0100 ####[facility] [address] [place], [address] MCV Normal 81-99 [facility] Comment on above: Result Comment: Canc elled via OM: Order cancelled - Patient discharged Performed By: #### L 500.2500, L100.0100 ####[facility] [address] [place], [address] NEUT% Normal 47-70 [facility] Comment on above: Result Comment: Canc elled via OM: Order cancelled - Patient discharged Performed By: #### L 500.2500, L100.0100 ####[facility] [address] [place], [address] PLT Normal 150-450 [facility] Comment on above: Result Comment: Canc elled via OM: Order cancelled - Patient discharged Performed By: #### L 500.2500, L100.0100 ####[facility] [address] [place], [address] RBC Normal 4.2-5.4 [facility] Comment on above: Result Comment: Canc elled via OM: Order cancelled - Patient discharged Performed By: #### L 500.2500, L100.0100 ####[facility] [address] [place], [address] RDW CV Normal 11.6-14.6 [facility] Comment on above: Result Comment: Canc elled via OM: Order cancelled - Patient discharged Performed By: #### L 500.2500, L100.0100 ####[facility] [address] [place], [address] RDW SD Normal 35.1-43.9 [facility] Comment on above: Result Comment: Canc elled via OM: Order cancelled - Patient discharged Performed By: #### L 500.2500, L100.0100 ####[facility] [address] [place], [address] WBC Normal 4.4-11.0 [facility] Comment on above: Result Comment: Canc elled via OM: Order cancelled - Patient discharged Performed By: #### L 500.2500, L100.0100 ####[facility] [address] [place], [address] Basic Metabolic Profile (BMP )on 05-01-2024 BUN Normal 7-18 [facility] Comment on above: Result Comment: Canc elled via OM: Order cancelled - Patient discharged Performed By: #### L 100.0100, L500.2500 ####[facility] [address] [place], [address] BUN/CRE Normal 10-20 [facility] Comment on above: Result Comment: Canc elled via OM: Order cancelled - Patient discharged Performed By: #### L 100.0100, L500.2500 ####[facility] [address] [place], [address] CA,Total Normal 8.5-10.1 [facility] Comment on above: Result Comment: Canc elled via OM: Order cancelled - Patient discharged Performed By: #### L 100.0100, L500.2500 ####[facility] [address] [place], [address] CL Normal 98-107 [facility] Comment on above: Result Comment: Canc elled via OM: Order cancelled - Patient discharged Performed By: #### L 100.0100, L500.2500 ####[facility] [address] [place], [address] CO2 Normal 21.0-32.0 [facility] Comment on above: Result Comment: Canc elled via OM: Order cancelled - Patient discharged Performed By: #### L 100.0100, L500.2500 ####[facility] [address] [place], [address] CREAT,SERUM Normal 0.55-1.02 [facility] Comment on above: Result Comment: Canc elled via OM: Order cancelled - Patient discharged Performed By: #### L 100.0100, L500.2500 ####[facility] [address] [place], [address] EST GFR Normal >60 [facility] Comment on above: Result Comment: Canc elled via OM: Order cancelled - Patient discharged Performed By: #### L 100.0100, L500.2500 ####[facility] [address] [place], [address] EST GFR - AA Normal >60 [facility] Comment on above: Result Comment: Canc elled via OM: Order cancelled - Patient discharged Performed By: #### L 100.0100, L500.2500 ####[facility] [address] [place], [address] GAP Normal 5-15 [facility] Comment on above: Result Comment: Canc elled via OM: Order cancelled - Patient discharged Performed By: #### L 100.0100, L500.2500 ####[facility] [address] [place], [address] GLU Normal 74-106 [facility] Comment on above: Result Comment: Canc elled via OM: Order cancelled - Patient discharged Performed By: #### L 100.0100, L500.2500 ####[facility] [address] [place], [address] Potassium Normal 3.5-5.1 [facility] Comment on above: Result Comment: Canc elled via OM: Order cancelled - Patient discharged Performed By: #### L 100.0100, L500.2500 ####[facility] [address] [place], [address] Basic Metabolic Profile (BMP) Normal 136-145 [facility] Comment on above: Result Comment: Canc elled via OM: Order cancelled - Patient discharged Performed By: #### L 100.0100, L500.2500 ####[facility] [address] [place], [address] CBC W/Diff, Automatedon - Absolute Neut Normal 2.0-7.7 [facility] Comment on above: Result Comment: Canc elled via OM: Order cancelled - Patient discharged Performed By: #### L 100.0100, L500.2500 ####[facility] [address] [place], [address] HCT Normal 37-47 [facility] Comment on above: Result Comment: Canc elled via OM: Order cancelled - Patient discharged Performed By: #### L 100.0100, L500.2500 ####[facility] [address] [place], [address] HGB Normal 12.0-15.0 [facility] Comment on above: Result Comment: Canc elled via OM: Order cancelled - Patient discharged Performed By: #### L 100.0100, L500.2500 ####[facility] [address] [place], [address] MCH Normal 27.0-32.0 [facility] Comment on above: Result Comment: Canc elled via OM: Order cancelled - Patient discharged Performed By: #### L 100.0100, L500.2500 ####[facility] [address] [place], [address] MCHC Normal 32-36 [facility] Comment on above: Result Comment: Canc elled via OM: Order cancelled - Patient discharged Performed By: #### L 100.0100, L500.2500 ####[facility] [address] [place], [address] MCV Normal 81-99 [facility] Comment on above: Result Comment: Canc elled via OM: Order cancelled - Patient discharged Performed By: #### L 100.0100, L500.2500 ####[facility] [address] [place], [address] NEUT% Normal 47-70 [facility] Comment on above: Result Comment: Canc elled via OM: Order cancelled - Patient discharged Performed By: #### L 100.0100, L500.2500 ####[facility] [address] [place], [address] PLT Normal 150-450 [facility] Comment on above: Result Comment: Canc elled via OM: Order cancelled - Patient discharged Performed By: #### L 100.0100, L500.2500 ####[facility] [address] [place], [address] RBC Normal 4.2-5.4 [facility] Comment on above: Result Comment: Canc elled via OM: Order cancelled - Patient discharged Performed By: #### L 100.0100, L500.2500 ####[facility] [address] [place], [address] RDW CV Normal 11.6-14.6 [facility] Comment on above: Result Comment: Canc elled via OM: Order cancelled - Patient discharged Performed By: #### L 100.0100, L500.2500 ####[facility] [address] [place], [address] RDW SD Normal 35.1-43.9 [facility] Comment on above: Result Comment: Canc elled via OM: Order cancelled - Patient discharged Performed By: #### L 100.0100, L500.2500 ####[facility] [address] [place], [address] WBC Normal 4.4-11.0 [facility] Comment on above: Result Comment: Canc elled via OM: Order cancelled - Patient discharged Performed By: #### L 100.0100, L500.2500 ####[facility] [address] [place], [address] Basic Metabolic Profile (BMP )on 04-30-2024 BUN Normal 7-18 [facility] Comment on above: Result Comment: Canc elled via OM: Order cancelled - Patient discharged Performed By: #### L 500.2500, L100.0100 ####[facility] [address] [place], [address] BUN/CRE Normal 10-20 [facility] Comment on above: Result Comment: Canc elled via OM: Order cancelled - Patient discharged Performed By: #### L 500.2500, L100.0100 ####[facility] [address] [place], [address] CA,Total Normal 8.5-10.1 [facility] Comment on above: Result Comment: Canc elled via OM: Order cancelled - Patient discharged Performed By: #### L 500.2500, L100.0100 ####[facility] [address] [place], [address] CL Normal 98-107 [facility] Comment on above: Result Comment: Canc elled via OM: Order cancelled - Patient discharged Performed By: #### L 500.2500, L100.0100 ####[facility] [address] [place], [address] CO2 Normal 21.0-32.0 [facility] Comment on above: Result Comment: Canc elled via OM: Order cancelled - Patient discharged Performed By: #### L 500.2500, L100.0100 ####[facility] [address] [place], [address] CREAT,SERUM Normal 0.55-1.02 [facility] Comment on above: Result Comment: Canc elled via OM: Order cancelled - Patient discharged Performed By: #### L 500.2500, L100.0100 ####[facility] [address] [place], [address] EST GFR Normal >60 [facility] Comment on above: Result Comment: Canc elled via OM: Order cancelled - Patient discharged Performed By: #### L 500.2500, L100.0100 ####[facility] [address] [place], [address] EST GFR - AA Normal >60 [facility] Comment on above: Result Comment: Canc elled via OM: Order cancelled - Patient discharged Performed By: #### L 500.2500, L100.0100 ####[facility] [address] [place], [address] GAP Normal 5-15 [facility] Comment on above: Result Comment: Canc elled via OM: Order cancelled - Patient discharged Performed By: #### L 500.2500, L100.0100 ####[facility] [address] [place], [address] GLU Normal 74-106 [facility] Comment on above: Result Comment: Canc elled via OM: Order cancelled - Patient discharged Performed By: #### L 500.2500, L100.0100 ####[facility] [address] [place], [address] Potassium Normal 3.5-5.1 [facility] Comment on above: Result Comment: Canc elled via OM: Order cancelled - Patient discharged Performed By: #### L 500.2500, L100.0100 ####[facility] [address] [place], [address] Basic Metabolic Profile (BMP) Normal 136-145 [facility] Comment on above: Result Comment: Canc elled via OM: Order cancelled - Patient discharged Performed By: #### L 500.2500, L100.0100 ####[facility] [address] [place], [address] CBC W/Diff, Automatedon 11- Absolute Neut Normal 2.0-7.7 [facility] Comment on above: Result Comment: Canc elled via OM: Order cancelled - Patient discharged Performed By: #### L 500.2500, L100.0100 ####[facility] [address] [place], [address] HCT Normal 37-47 [facility] Comment on above: Result Comment: Canc elled via OM: Order cancelled - Patient discharged Performed By: #### L 500.2500, L100.0100 ####[facility] [address] [place], [address] HGB Normal 12.0-15.0 [facility] Comment on above: Result Comment: Canc elled via OM: Order cancelled - Patient discharged Performed By: #### L 500.2500, L100.0100 ####[facility] [address] [place], [address] MCH Normal 27.0-32.0 [facility] Comment on above: Result Comment: Canc elled via OM: Order cancelled - Patient discharged Performed By: #### L 500.2500, L100.0100 ####[facility] [address] [place], [address] MCHC Normal 32-36 [facility] Comment on above: Result Comment: Canc elled via OM: Order cancelled - Patient discharged Performed By: #### L 500.2500, L100.0100 ####[facility] [address] [place], [address] MCV Normal 81-99 [facility] Comment on above: Result Comment: Canc elled via OM: Order cancelled - Patient discharged Performed By: #### L 500.2500, L100.0100 ####[facility] [address] [place], [address] NEUT% Normal 47-70 [facility] Comment on above: Result Comment: Canc elled via OM: Order cancelled - Patient discharged Performed By: #### L 500.2500, L100.0100 ####[facility] [address] [place], [address] PLT Normal 150-450 [facility] Comment on above: Result Comment: Canc elled via OM: Order cancelled - Patient discharged Performed By: #### L 500.2500, L100.0100 ####[facility] [address] [place], [address] RBC Normal 4.2-5.4 [facility] Comment on above: Result Comment: Canc elled via OM: Order cancelled - Patient discharged Performed By: #### L 500.2500, L100.0100 ####[facility] [address] [place], [address] RDW CV Normal 11.6-14.6 [facility] Comment on above: Result Comment: Canc elled via OM: Order cancelled - Patient discharged Performed By: #### L 500.2500, L100.0100 ####[facility] [address] [place], [address] RDW SD Normal 35.1-43.9 [facility] Comment on above: Result Comment: Canc elled via OM: Order cancelled - Patient discharged Performed By: #### L 500.2500, L100.0100 ####[facility] [address] [place], [address] WBC Normal 4.4-11.0 [facility] Comment on above: Result Comment: Canc elled via OM: Order cancelled - Patient discharged Performed By: #### L 500.2500, L100.0100 ####[facility] [address] [place], [address] Absolute neutrophil countOrd ered By: Talisha Boykin on 04-29-2024 Absolute neutrophil count 7.8 X10^3/uL High 2.0-7.7 [facility] Basic Metabolic Profile (BMP )on 04-29-2024 BUN/CRE 31.5 RATIO High 10-20 [facility] Comment on above: Performed By: #### L 100.0100, L500.2500 ####[facility] [address] [place], [address] CA,Total 8.1 mg/dL Low 8.5-10.1 [facility] Comment on above: Performed By: #### L 100.0100, L500.2500 ####[facility] [address] [place], [address] Chloride [Moles/Vol] 104 mmol/L Normal 98-107 [facility] Comment on above: Performed By: #### L 100.0100, L500.2500 ####[facility] [address] [place], [address] CO2 [Moles/Vol] 27.0 mmol/L Normal 21.0-32.0 [facility] Comment on above: Performed By: #### L 100.0100, L500.2500 ####[facility] [address] [place], [address] Creatinine [Mass/Vol] 0.70 mg/dL Normal 0.55-1.02 [facility] Comment on above: Result Comment: The validity of the calculated GFR GFRAA in patients over70 years has not been determined. Clinical correlation isessential. Performed By: #### L 100.0100, L500.2500 ####[facility] [address] [place], [address] ECRCL 91.42 ml/min Normal [facility] Comment on above: Performed By: #### L 100.0100, L500.2500 ####[facility] [address] [place], [address] EST GFR - AA 113 mL/min Normal >60 [facility] Comment on above: Result Comment: Afri can Cypriot GFR Calc Performed By: #### L 100.0100, L500.2500 ####[facility] [address] [place], [address] GAP 4 Low 5-15 [facility] Comment on above: Performed By: #### L 100.0100, L500.2500 ####[facility] [address] [place], [address] GFR/1.73 sq M.predicted among non-blacks MDRD (S/P/Bld) [Vol rate/Area] 94 mL/min/{1.73_m2} Normal >60 [facility] Comment on above: Result Comment: Non- GFR Calc Performed By: #### L 100.0100, L500.2500 ####[facility] [address] [place], [address] Glucose [Mass/Vol] 231 mg/dL High 74-106 [facility] Comment on above: Result Comment: Gluc ose result greater than or equal to 200 mg/dLsuggests DIABETES MELLITUS per A.D.A. criteria. Performed By: #### L 100.0100, L500.2500 ####[facility] [address] [place], [address] Potassium [Moles/Vol] 4.7 mmol/L Normal 3.5-5.1 [facility] Comment on above: Performed By: #### L 100.0100, L500.2500 ####[facility] [address] [place], [address] Sodium [Moles/Vol] 134 mmol/L Low 136-145 [facility] Comment on above: Performed By: #### L 100.0100, L500.2500 ####[facility] [address] [place], [address] Urea nitrogen [Mass/Vol] 22 mg/dL High 7-18 [facility] Comment on above: Performed By: #### L 100.0100, L500.2500 ####[facility] [address] [place], [address] Basophil percentageOrdered B y: Talisha Boykin on 04-29-2024 Basophil percentage 0.5 % 0-1 [facility] Bedside Glucoseon 04-29-2024 FINGERSTICK GLU 277 mg/dL High 74-106 [facility] Comment on above: Result Comment: TALIA CHAMBERS OF PATIENT CARE PER NURSING PROTOCOL Performed By: #### L 501.080 ####[facility] [address] [place], [address] Blood urea nitrogen (BUN)/cr eatinine ratioOrdered By: Talisha Boykin on 04-29-2024 Blood urea nitrogen (BUN)/creatinine ratio 31.5 RATIO High 10-20 [facility] CBC W/Diff, Automatedon 11-2 Absolute Lymph 1.93 X10 3/uL Normal 0.83-4.51 [facility] Comment on above: Performed By: #### L 100.0100, L500.2500 ####[facility] [address] [place], [address] Absolute Neut 7.8 X10 3/uL High 2.0-7.7 [facility] Comment on above: Performed By: #### L 100.0100, L500.2500 ####[facility] [address] [place], [address] Basophils/100 WBC (Bld) 0.5 % Normal 0-1 [facility] Comment on above: Performed By: #### L 100.0100, L500.2500 ####[facility] [address] [place], [address] Eosinophils/100 WBC (Bld) 0.8 % Normal 0-5 [facility] Comment on above: Performed By: #### L 100.0100, L500.2500 ####[facility] [address] [place], [address] Erythrocyte distribution width (RBC) [Ratio] 13.6 % Normal 11.6-14.6 [facility] Comment on above: Performed By: #### L 100.0100, L500.2500 ####[facility] [address] [place], [address] Hematocrit (Bld) [Volume fraction] 34.3 % Low 37-47 [facility] Comment on above: Performed By: #### L 100.0100, L500.2500 ####[facility] [address] [place], [address] Hemoglobin (Bld) [Mass/Vol] 11.2 g/dL Low 12.0-15.0 [facility] Comment on above: Performed By: #### L 100.0100, L500.2500 ####[facility] [address] [place], [address] IG% 1.100 High 0.0-0.9 [facility] Comment on above: Result Comment: IG% - Immature Granulocytes (promyelocytes, myelocytes andmetamyelocytes) > 1% indicates that a LEFT SHIFT is Present. Performed By: #### L 100.0100, L500.2500 ####[facility] [address] [place], [address] Lymphocytes/100 WBC (Bld) 18.4 % Low 19-41 [facility] Comment on above: Performed By: #### L 100.0100, L500.2500 ####[facility] [address] [place], [address] MCH (RBC) [Entitic mass] 27.2 pg Normal 27.0-32.0 [facility] Comment on above: Performed By: #### L 100.0100, L500.2500 ####[facility] [address] [place], [address] MCHC (RBC) [Mass/Vol] 32.7 g/dL Normal 32-36 [facility] Comment on above: Performed By: #### L 100.0100, L500.2500 ####[facility] [address] [place], [address] MCV (RBC) [Entitic vol] 83.3 fL Normal 81-99 [facility] Comment on above: Performed By: #### L 100.0100, L500.2500 ####[facility] [address] [place], [address] Monocytes/100 WBC (Bld) 4.8 % Normal 0-10 [facility] Comment on above: Performed By: #### L 100.0100, L500.2500 ####[facility] [address] [place], [address] Neutrophils/100 WBC (Bld) 74.4 % High 47-70 [facility] Comment on above: Performed By: #### L 100.0100, L500.2500 ####[facility] [address] [place], [address] Nucleated RBC (Bld) [#/Vol] 0 10*3/uL Normal 0-5 [facility] Comment on above: Performed By: #### L 100.0100, L500.2500 ####[facility] [address] [place], [address] Platelet mean volume (Bld) [Entitic vol] 9.6 fL Normal 6.2-12.0 [facility] Comment on above: Performed By: #### L 100.0100, L500.2500 ####[facility] [address] [place], [address] Platelets (Bld) [#/Vol] 312 10*3/uL Normal 150-450 [facility] Comment on above: Performed By: #### L 100.0100, L500.2500 ####[facility] [address] [place], [address] RBC (Bld) [#/Vol] 4.12 10*6/uL Low 4.2-5.4 [facility] Comment on above: Performed By: #### L 100.0100, L500.2500 ####[facility] [address] [place], [address] RDW SD 41.0 fl Normal 35.1-43.9 [facility] Comment on above: Performed By: #### L 100.0100, L500.2500 ####[facility] [address] [place], [address] WBC (Bld) [#/Vol] 10.5 10*3/uL Normal 4.4-11.0 [facility] Comment on above: Performed By: #### L 100.0100, L500.2500 ####[facility] [address] [place], [address] Calcium [Mass/Vol]Ordered By : Talisha Boykin on 04-29-2024 Serum or plasma calcium measurement (mass/volume) 8.1 mg/dL Low 8.5-10.1 [facility] Carbon dioxide measurementOr dered By: Talisha Boykin on 04-29-2024 Carbon dioxide measurement 27.0 mmol/L 21.0-32.0 [facility] Chloride measurementOrdered By: Talisha Boykin on 04-29-2024 Chloride measurement 104 mmol/L 98-107 [facility] Creatinine [Mass/Vol]Ordered By: Talisha Boykin on 04-29-2024 Serum or plasma creatinine measurement (mass/volume) 0.70 mg/dL 0.55-1.02 [facility] Eosinophil percentageOrdered By: Talisha Boykin on 04-29-2024 Eosinophil percentage 0.8 % 0-5 [facility] Erythrocyte distribution wid th (RBC) [Entitic vol]Ordered By: Talisha Boykin on 04-29-2024 Erythrocyte distribution width standard deviation 41.0 fl 35.1-43.9 [facility] Erythrocyte distribution wid th (RBC) [Ratio]Ordered By: Talishaneville Boykin on 04-29-2024 Erythrocyte distribution width ratio 13.6 % 11.6-14.6 [facility] Estimated glomerular filtrat ion rate (GFR) AmericanOrdered By: Talisha Boykin on 04-29-2024 Estimated glomerular filtration rate (GFR) 113 mL/min >60 [facility] Estimation of creatinine sylvain aranceOrdered By: Talisha Boykin on 04-29-2024 Estimation of creatinine clearance 91.42 ml/min [facility] Glomerular filtration rate ( GFR) estimationOrdered By: Talisha Boykin on 04-29-2024 Glomerular filtration rate (GFR) estimation 94 mL/min >60 [facility] Glucose measurementOrdered B y: Talisha Boykin on 04-29-2024 Glucose measurement 231 mg/dL High 74-106 [facility] Glucose measurement at bedsi deOrdered By: Talisha Boykin 04-29-2024 Glucose measurement at bedside 277 mg/dL High 74-106 [facility] Hematocrit Auto (Bld) [Volum e fraction]Ordered By: Talisha Boykin on 04-29-2024 Automated blood hematocrit (percentage) 34.3 % Low 37-47 [facility] Hemoglobin measurementOrdere d By: Talisha Boykin on 04-29-2024 Hemoglobin measurement 11.2 g/dL Low 12.0-15.0 [facility] Immature granulocytes/100 WB C Auto (Bld)Ordered By: Talisha Boykin on 04-29-2024 Automated immature granulocyte percentage 1.100 % High 0.0-0.9 [facility] Lymphocytes Auto (Unsp spec) [#/Vol]Ordered By: Talisha Boykin on 04-29-2024 Absolute lymphocyte count 1.93 X10^3/uL 0.83-4.51 [facility] Lymphocytes/100 WBC Auto (Un sp spec)Ordered By: Talisha Boykin on 04-29-2024 Automated lymphocyte count as percentage of total leukocytes 18.4 % Low 19-41 [facility] MCV (RBC) [Entitic vol]Order ed By: Talisha Boykin on 04-29-2024 MCV (mean corpuscular volume) determination 83.3 fL 81-99 [facility] Mean corpuscular hemoglobin (MCH) determinationOrdered By: Talisha Boykin on 04-29-2024 Mean corpuscular hemoglobin (MCH) determination 27.2 pg 27.0-32.0 [facility] Mean corpuscular hemoglobin concentration (MCHC) determinationOrdered By: Talisha Boykin on 04-29-2024 Mean corpuscular hemoglobin concentration (MCHC) determination 32.7 g/dL 32-36 [facility] Mean platelet volume determi nationOrdered By: Talisha Boykin on 04-29-2024 Mean platelet volume determination 9.6 fl 6.2-12.0 [facility] Monocyte percentageOrdered B y: Talisha Boykin on 04-29-2024 Monocyte percentage 4.8 % 0-10 [facility] Neutrophil percentageOrdered By: Talisha Boykin on 04-29-2024 Neutrophil percentage 74.4 % High 47-70 [facility] Nucleated red blood cell per centageOrdered By: Talisha Boykin on 04-29-2024 Nucleated red blood cell percentage 0 % 0-5 [facility] Platelet countOrdered By: Na na Ashutosh on 04-29-2024 Platelet count 312 K/mm3 150-450 [facility] Potassium measurementOrdered By: Talisha Boykin on 04-29-2024 Potassium measurement 4.7 mmol/L 3.5-5.1 [facility] RBC Auto (Bld) [#/Vol]Ordere d By: Talisha Boykin on 04-29-2024 Automated blood erythrocyte count 4.12 M/mm3 Low 4.2-5.4 [facility] Serum anion gap measurementO rdered By: Talisha Boykin on 04-29-2024 Serum anion gap measurement 4 Low 5-15 [facility] Sodium levelOrdered By: Talisha Boykin on 04-29-2024 Sodium level 134 mmol/L Low 136-145 [facility] Urea nitrogen [Mass/Vol]Orde red By: Talisha Boykin on 04-29-2024 Serum or plasma urea nitrogen measurement (mass/volume) 22 mg/dL High 7-18 [facility] White blood cell (WBC) count Ordered By: Talisha Boykin on 04-29-2024 White blood cell (WBC) count 10.5 K/mm3 4.4-11.0 [facility] Basic Metabolic Profile (BMP )on 04-28-2024 BUN/CRE 28.0 RATIO High 10-20 [facility] Comment on above: Performed By: #### L 100.0100, L500.2500 ####[facility] [address] [place], [address] CA,Total 8.2 mg/dL Low 8.5-10.1 [facility] Comment on above: Performed By: #### L 100.0100, L500.2500 ####[facility] [address] [place], [address] Chloride [Moles/Vol] 102 mmol/L Normal 98-107 [facility] Comment on above: Performed By: #### L 100.0100, L500.2500 ####[facility] [address] [place], [address] CO2 [Moles/Vol] 27.0 mmol/L Normal 21.0-32.0 [facility] Comment on above: Performed By: #### L 100.0100, L500.2500 ####[facility] [address] [place], [address] Creatinine [Mass/Vol] 0.54 mg/dL Low 0.55-1.02 [facility] Comment on above: Result Comment: The validity of the calculated GFR GFRAA in patients over70 years has not been determined. Clinical correlation isessential. Performed By: #### L 100.0100, L500.2500 ####[facility] [address] [place], [address] ECRCL 118.51 ml/min Normal [facility] Comment on above: Performed By: #### L 100.0100, L500.2500 ####[facility] [address] [place], [address] EST GFR - AA 153 mL/min Normal >60 [facility] Comment on above: Result Comment: Afri can Cypriot GFR Calc Performed By: #### L 100.0100, L500.2500 ####[facility] [address] [place], [address] GAP 4 Low 5-15 [facility] Comment on above: Performed By: #### L 100.0100, L500.2500 ####[facility] [address] [place], [address] GFR/1.73 sq M.predicted among non-blacks MDRD (S/P/Bld) [Vol rate/Area] 127 mL/min/{1.73_m2} Normal >60 [facility] Comment on above: Result Comment: Non- GFR Calc Performed By: #### L 100.0100, L500.2500 ####[facility] [address] [place], [address] Glucose [Mass/Vol] 134 mg/dL High 74-106 [facility] Comment on above: Result Comment: Fast ing Glucose result greater than or equal to 126 mg/dLsuggests DIABETES MELLITUS per A.D.A. criteria. Performed By: #### L 100.0100, L500.2500 ####[facility] [address] [place], [address] Potassium [Moles/Vol] 4.4 mmol/L Normal 3.5-5.1 [facility] Comment on above: Performed By: #### L 100.0100, L500.2500 ####[facility] [address] [place], [address] Sodium [Moles/Vol] 133 mmol/L Low 136-145 [facility] Comment on above: Performed By: #### L 100.0100, L500.2500 ####[facility] [address] [place], [address] Urea nitrogen [Mass/Vol] 15 mg/dL Normal 7-18 [facility] Comment on above: Performed By: #### L 100.0100, L500.2500 ####[facility] [address] [place], [address] Bedside Glucoseon 04-28-2024 FINGERSTICK GLU 171 mg/dL High 74-106 [facility] Comment on above: Result Comment: TALIA GEMENT OF PATIENT CARE PER NURSING PROTOCOL Performed By: #### L 501.080 ####[facility] [address] [place], [address] FINGERSTICK GLU 158 mg/dL High -106 [facility] Comment on above: Result Comment: TALIA GEMENT OF PATIENT CARE PER NURSING PROTOCOL Performed By: #### L 501.080 ####[facility] [address] [place], [address] FINGERSTICK GLU 147 mg/dL High 74-106 [facility] Comment on above: Result Comment: TALIA GEMENT OF PATIENT CARE PER NURSING PROTOCOL Performed By: #### L 501.080 ####[facility] [facility] [address] [place], [address] FINGERSTICK GLU 148 mg/dL High 74-106 [facility] Comment on above: Result Comment: TALIA GEMENT OF PATIENT CARE PER NURSING PROTOCOL Performed By: #### L 501.080 ####[facility] [address] [place], [address] CBC W/Diff, Automatedon 11-2 Absolute Lymph 1.78 X10 3/uL Normal 0.83-4.51 [facility] Comment on above: Performed By: #### L 100.0100, L500.2500 ####[facility] [address] [place], [address] Absolute Neut 5.6 X10 3/uL Normal 2.0-7.7 [facility] Comment on above: Performed By: #### L 100.0100, L500.2500 ####[facility] [address] [place], [address] Basophils/100 WBC (Bld) 0.6 % Normal 0-1 [facility] Comment on above: Performed By: #### L 100.0100, L500.2500 ####[facility] [address] [place], [address] Eosinophils/100 WBC (Bld) 1.4 % Normal 0-5 [facility] Comment on above: Performed By: #### L 100.0100, L500.2500 ####[facility] [address] [place], [address] Erythrocyte distribution width (RBC) [Ratio] 13.3 % Normal 11.6-14.6 [facility] Comment on above: Performed By: #### L 100.0100, L500.2500 ####[facility] [address] [place], [address] Hematocrit (Bld) [Volume fraction] 38.7 % Normal 37-47 [facility] Comment on above: Performed By: #### L 100.0100, L500.2500 ####[facility] [address] [place], [address] Hemoglobin (Bld) [Mass/Vol] 12.4 g/dL Normal 12.0-15.0 [facility] Comment on above: Performed By: #### L 100.0100, L500.2500 ####[facility] [address] [place], [address] IG% 1.500 High 0.0-0.9 [facility] Comment on above: Result Comment: IG% - Immature Granulocytes (promyelocytes, myelocytes andmetamyelocytes) > 1% indicates that a LEFT SHIFT is Present. Performed By: #### L 100.0100, L500.2500 ####[facility] [address] [place], [address] Lymphocytes/100 WBC (Bld) 22.1 % Normal 19-41 [facility] Comment on above: Performed By: #### L 100.0100, L500.2500 ####[facility] [address] [place], [address] MCH (RBC) [Entitic mass] 26.5 pg Low 27.0-32.0 [facility] Comment on above: Performed By: #### L 100.0100, L500.2500 ####[facility] [address] [place], [address] MCHC (RBC) [Mass/Vol] 32.0 g/dL Normal 32-36 [facility] Comment on above: Performed By: #### L 100.0100, L500.2500 ####[facility] [address] [place], [address] MCV (RBC) [Entitic vol] 82.7 fL Normal 81-99 [facility] Comment on above: Performed By: #### L 100.0100, L500.2500 ####[facility] [address] [place], [address] Monocytes/100 WBC (Bld) 5.3 % Normal 0-10 [facility] Comment on above: Performed By: #### L 100.0100, L500.2500 ####[facility] [address] [place], [address] Neutrophils/100 WBC (Bld) 69.1 % Normal 47-70 [facility] Comment on above: Performed By: #### L 100.0100, L500.2500 ####[facility] [address] [place], [address] Nucleated RBC (Bld) [#/Vol] 0 10*3/uL Normal 0-5 [facility] Comment on above: Performed By: #### L 100.0100, L500.2500 ####[facility] [address] [place], [address] Platelet mean volume (Bld) [Entitic vol] 9.6 fL Normal 6.2-12.0 [facility] Comment on above: Performed By: #### L 100.0100, L500.2500 ####[facility] [address] [place], [address] Platelets (Bld) [#/Vol] 273 10*3/uL Normal 150-450 [facility] Comment on above: Performed By: #### L 100.0100, L500.2500 ####[facility] [address] [place], [address] RBC (Bld) [#/Vol] 4.68 10*6/uL Normal 4.2-5.4 [facility] Comment on above: Performed By: #### L 100.0100, L500.2500 ####[facility] [address] [place], [address] RDW SD 40.3 fl Normal 35.1-43.9 [facility] Comment on above: Performed By: #### L 100.0100, L500.2500 ####[facility] [address] [place], [address] WBC (Bld) [#/Vol] 8.1 10*3/uL Normal 4.4-11.0 [facility] Comment on above: Performed By: #### L 100.0100, L500.2500 ####[facility] [address] [place], [address] Basic Metabolic Profile (BMP )on 04-27-2024 BUN/CRE 25.8 RATIO High 10-20 [facility] Comment on above: Performed By: #### L 500.2500, L100.0100 ####[facility] [address] [place], [address] CA,Total 8.2 mg/dL Low 8.5-10.1 [facility] Comment on above: Performed By: #### L 500.2500, L100.0100 ####[facility] [address] [place], [address] Chloride [Moles/Vol] 98 mmol/L Normal 98-107 [facility] Comment on above: Performed By: #### L 500.2500, L100.0100 ####[facility] [address] [place], [address] CO2 [Moles/Vol] 31.0 mmol/L Normal 21.0-32.0 [facility] Comment on above: Performed By: #### L 500.2500, L100.0100 ####[facility] [address] [place], [address] Creatinine [Mass/Vol] 0.66 mg/dL Normal 0.55-1.02 [facility] Comment on above: Result Comment: The validity of the calculated GFR GFRAA in patients over70 years has not been determined. Clinical correlation isessential. Performed By: #### L 500.2500, L100.0100 ####[facility] [address] [place], [address] ECRCL 96.96 ml/min Normal [facility] Comment on above: Performed By: #### L 500.2500, L100.0100 ####[facility] [address] [place], [address] EST GFR - AA 121 mL/min Normal >60 [facility] Comment on above: Result Comment: Afri can Cypriot GFR Calc Performed By: #### L 500.2500, L100.0100 ####[facility] [address] [place], [address] GAP 5 Normal 5-15 [facility] Comment on above: Performed By: #### L 500.2500, L100.0100 ####[facility] [address] [place], [address] GFR/1.73 sq M.predicted among non-blacks MDRD (S/P/Bld) [Vol rate/Area] 100 mL/min/{1.73_m2} Normal >60 [facility] Comment on above: Result Comment: Non- GFR Calc Performed By: #### L 500.2500, L100.0100 ####[facility] [address] [place], [address] Glucose [Mass/Vol] 265 mg/dL High 74-106 [facility] Comment on above: Result Comment: Gluc ose result greater than or equal to 200 mg/dLsuggests DIABETES MELLITUS per A.D.A. criteria. Performed By: #### L 500.2500, L100.0100 ####[facility] [address] [place], [address] Potassium [Moles/Vol] 4.1 mmol/L Normal 3.5-5.1 [facility] Comment on above: Performed By: #### L 500.2500, L100.0100 ####[facility] [address] [place], [address] Sodium [Moles/Vol] 134 mmol/L Low 136-145 [facility] Comment on above: Performed By: #### L 500.2500, L100.0100 ####[facility] [address] [place], [address] Urea nitrogen [Mass/Vol] 17 mg/dL Normal 7-18 [facility] Comment on above: Performed By: #### L 500.2500, L100.0100 ####[facility] [address] [place], [address] Bedside Glucoseon 04-27-2024 FINGERSTICK GLU 188 mg/dL High 74-106 [facility] Comment on above: Result Comment: TALIA GEMENT OF PATIENT CARE PER NURSING PROTOCOL Performed By: #### L 501.080 ####[facility] [address] [place], [address] FINGERSTICK GLU 278 mg/dL High 74-106 [facility] Comment on above: Result Comment: TALIA GEMENT OF PATIENT CARE PER NURSING PROTOCOL Performed By: #### L 501.080 ####[facility] [address] [place], [address] FINGERSTICK GLU 321 mg/dL High 74-106 [facility] Comment on above: Result Comment: TALIA GEMENT OF PATIENT CARE PER NURSING PROTOCOL Performed By: #### L 501.080 ####[facility] [address] [place], [address] FINGERSTICK GLU 185 mg/dL High 74-106 [facility] Comment on above: Result Comment: TALIA GEMENT OF PATIENT CARE PER NURSING PROTOCOL Performed By: #### L 501.080 ####[facility] [address] [place], [address] CBC W/Diff, Automatedon 11-2 -2023 Absolute Lymph 1.39 X10 3/uL Normal 0.83-4.51 [facility] Comment on above: Performed By: #### L 500.2500, L100.0100 ####[facility] [address] [place], [address] Absolute Neut 6.8 X10 3/uL Normal 2.0-7.7 [facility] Comment on above: Performed By: #### L 500.2500, L100.0100 ####[facility] [address] [place], [address] Basophils/100 WBC (Bld) 0.7 % Normal 0-1 [facility] Comment on above: Performed By: #### L 500.2500, L100.0100 ####[facility] [address] [place], [address] Eosinophils/100 WBC (Bld) 1.1 % Normal 0-5 [facility] Comment on above: Performed By: #### L 500.2500, L100.0100 ####[facility] [address] [place], [address] Erythrocyte distribution width (RBC) [Ratio] 13.3 % Normal 11.6-14.6 [facility] Comment on above: Performed By: #### L 500.2500, L100.0100 ####[facility] [address] [place], [address] Hematocrit (Bld) [Volume fraction] 38.1 % Normal 37-47 [facility] Comment on above: Performed By: #### L 500.2500, L100.0100 ####[facility] [address] [place], [address] Hemoglobin (Bld) [Mass/Vol] 12.3 g/dL Normal 12.0-15.0 [facility] Comment on above: Performed By: #### L 500.2500, L100.0100 ####[facility] [address] [place], [address] IG% 1.200 High 0.0-0.9 [facility] Comment on above: Result Comment: IG% - Immature Granulocytes (promyelocytes, myelocytes andmetamyelocytes) > 1% indicates that a LEFT SHIFT is Present. Performed By: #### L 500.2500, L100.0100 ####[facility] [address] [place], [address] Lymphocytes/100 WBC (Bld) 15.7 % Low 19-41 [facility] Comment on above: Performed By: #### L 500.2500, L100.0100 ####[facility] [address] [place], [address] MCH (RBC) [Entitic mass] 26.9 pg Low 27.0-32.0 [facility] Comment on above: Performed By: #### L 500.2500, L100.0100 ####[facility] [address] [place], [address] MCHC (RBC) [Mass/Vol] 32.3 g/dL Normal 32-36 [facility] Comment on above: Performed By: #### L 500.2500, L100.0100 ####[facility] [address] [place], [address] MCV (RBC) [Entitic vol] 83.2 fL Normal 81-99 [facility] Comment on above: Performed By: #### L 500.2500, L100.0100 ####[facility] [address] [place], [address] Monocytes/100 WBC (Bld) 4.9 % Normal 0-10 [facility] Comment on above: Performed By: #### L 500.2500, L100.0100 ####[facility] [address] [place], [address] Neutrophils/100 WBC (Bld) 76.4 % High 47-70 [facility] Comment on above: Performed By: #### L 500.2500, L100.0100 ####[facility] [address] [place], [address] Nucleated RBC (Bld) [#/Vol] 0 10*3/uL Normal 0-5 [facility] Comment on above: Performed By: #### L 500.2500, L100.0100 ####[facility] [address] [place], [address] Platelet mean volume (Bld) [Entitic vol] 9.3 fL Normal 6.2-12.0 [facility] Comment on above: Performed By: #### L 500.2500, L100.0100 ####[facility] [address] [place], [address] Platelets (Bld) [#/Vol] 284 10*3/uL Normal 150-450 [facility] Comment on above: Performed By: #### L 500.2500, L100.0100 ####[facility] [address] [place], [address] RBC (Bld) [#/Vol] 4.58 10*6/uL Normal 4.2-5.4 [facility] Comment on above: Performed By: #### L 500.2500, L100.0100 ####[facility] [address] [place], [address] RDW SD 40.4 fl Normal 35.1-43.9 [facility] Comment on above: Performed By: #### L 500.2500, L100.0100 ####[facility] [address] [place], [address] WBC (Bld) [#/Vol] 8.9 10*3/uL Normal 4.4-11.0 [facility] Comment on above: Performed By: #### L 500.2500, L100.0100 ####[facility] [address] [place], [address] ALP [Catalytic activity/Vol] Ordered By: Nicole Trujillo on 04-26-2024 Serum or plasma alkaline phosphatase measurement 95 U/L 45-117 [facility] ALT [Catalytic activity/Vol] Ordered By: Nicole Trujillo on 04-26-2024 Serum or plasma alanine aminotransferase (ALT) measurement 8 U/L Low 13-56 [facility] Albumin [Mass/Vol]Ordered By : Nicole Trujillo on 04-26-2024 Serum or plasma albumin measurement (mass/volume) 1.7 g/dL Low 3.2-5.0 [facility] Albumin to globulin ratioOrd ered By: Nicole Trujillo on 04-26-2024 Albumin to globulin ratio 0.4 RATIO Low 0.9-2.4 [facility] Bedside Glucoseon 04-26-2024 FINGERSTICK GLU 319 mg/dL High 74-106 [facility] Comment on above: Result Comment: TALIA GEMENT OF PATIENT CARE PER NURSING PROTOCOL Performed By: #### L 501.080 ####[facility] [address] [place], [address] FINGERSTICK GLU 280 mg/dL High 74[address] [place] [address] Comment on above: Result Comment: TALIA GEMENT OF PATIENT CARE PER NURSING PROTOCOL Performed By: #### L 501.080 ####[facility] [address] [place], [address] FINGERSTICK GLU 150 mg/dL High [address] [place] [address] Comment on above: Result Comment: TALIA GEMENT OF PATIENT CARE PER NURSING PROTOCOL Performed By: #### L 501.080 ####[facility] [address] [place], [address] Bilirubin, totalOrdered By: Nicole Trujillo on 04-26-2024 Bilirubin, total 0.50 mg/dL 0.20-1.00 [facility] CBC W/Diff, Automatedon 04-05 Absolute Lymph 1.72 X10 3/uL Normal 0.83-4.51 [facility] Comment on above: Performed By: #### L 100.0100, L500.4050, L501.2300, L501.5200 ####[facility] [address] [place], [address] Absolute Neut 6.8 X10 3/uL Normal 2.0-7.7 [facility] Comment on above: Performed By: #### L 100.0100, L500.4050, L501.2300, L501.5200 ####[facility] [address] [place], [address] Basophils/100 WBC (Bld) 0.4 % Normal 0-1 [facility] Comment on above: Performed By: #### L 100.0100, L500.4050, L501.2300, L501.5200 ####[facility] [address] [place], [address] Eosinophils/100 WBC (Bld) 1.2 % Normal 0-5 [facility] Comment on above: Performed By: #### L 100.0100, L500.4050, L501.2300, L501.5200 ####[facility] [address] [place], [address] Erythrocyte distribution width (RBC) [Ratio] 13.2 % Normal 11.6-14.6 [facility] Comment on above: Performed By: #### L 100.0100, L500.4050, L501.2300, L501.5200 ####[facility] [address] [place], [address] Hematocrit (Bld) [Volume fraction] 33.4 % Low 37-47 [facility] Comment on above: Performed By: #### L 100.0100, L500.4050, L501.2300, L501.5200 ####[facility] [address] [place], [address] Hemoglobin (Bld) [Mass/Vol] 11.3 g/dL Low 12.0-15.0 [facility] Comment on above: Performed By: #### L 100.0100, L500.4050, L501.2300, L501.5200 ####[facility] [address] [place], [address] IG% 1.200 High 0.0-0.9 [facility] Comment on above: Result Comment: IG% - Immature Granulocytes (promyelocytes, myelocytes andmetamyelocytes) > 1% indicates that a LEFT SHIFT is Present. Performed By: #### L 100.0100, L500.4050, L501.2300, L501.5200 ####[facility] [address] [place], [address] Lymphocytes/100 WBC (Bld) 18.4 % Low 19-41 [facility] Comment on above: Performed By: #### L 100.0100, L500.4050, L501.2300, L501.5200 ####[facility] [address] [place], [address] MCH (RBC) [Entitic mass] 27.6 pg Normal 27.0-32.0 [facility] Comment on above: Performed By: #### L 100.0100, L500.4050, L501.2300, L501.5200 ####[facility] [address] [place], [address] MCHC (RBC) [Mass/Vol] 33.8 g/dL Normal 32-36 [facility] Comment on above: Performed By: #### L 100.0100, L500.4050, L501.2300, L501.5200 ####[facility] [address] [place], [address] MCV (RBC) [Entitic vol] 81.7 fL Normal 81-99 [facility] Comment on above: Performed By: #### L 100.0100, L500.4050, L501.2300, L501.5200 ####[facility] [address] [place], [address] Monocytes/100 WBC (Bld) 5.7 % Normal 0-10 [facility] Comment on above: Performed By: #### L 100.0100, L500.4050, L501.2300, L501.5200 ####[facility] [address] [place], [address] Neutrophils/100 WBC (Bld) 73.1 % High 47-70 [facility] Comment on above: Performed By: #### L 100.0100, L500.4050, L501.2300, L501.5200 ####[facility] [address] [place], [address] Nucleated RBC (Bld) [#/Vol] 0 10*3/uL Normal 0-5 [facility] Comment on above: Performed By: #### L 100.0100, L500.4050, L501.2300, L501.5200 ####[facility] [address] [place], [address] Platelet mean volume (Bld) [Entitic vol] 9.3 fL Normal 6.2-12.0 [facility] Comment on above: Performed By: #### L 100.0100, L500.4050, L501.2300, L501.5200 ####[facility] [address] [place], [address] Platelets (Bld) [#/Vol] 234 10*3/uL Normal 150-450 [facility] Comment on above: Performed By: #### L 100.0100, L500.4050, L501.2300, L501.5200 ####[facility] [address] [place], [address] RBC (Bld) [#/Vol] 4.09 10*6/uL Low 4.2-5.4 [facility] Comment on above: Performed By: #### L 100.0100, L500.4050, L501.2300, L501.5200 ####[facility] [address] [place], [address] RDW SD 39.2 fl Normal 35.1-43.9 [facility] Comment on above: Performed By: #### L 100.0100, L500.4050, L501.2300, L501.5200 ####[facility] [address] [place], [address] WBC (Bld) [#/Vol] 9.3 10*3/uL Normal 4.4-11.0 [facility] Comment on above: Performed By: #### L 100.0100, L500.4050, L501.2300, L501.5200 ####[facility] [address] [place], [address] Comprehensive [facility] 04-26-2024 Albumin [Mass/Vol] 1.7 g/dL Low 3.2-5.0 [facility] Comment on above: Performed By: #### L 100.0100, L500.4050, L501.2300, L501.5200 ####[facility] [address] [place], [address] Albumin/Globulin [Mass ratio] 0.4 {ratio} Low 0.9-2.4 [facility] Comment on above: Performed By: #### L 100.0100, L500.4050, L501.2300, L501.5200 ####[facility] [address] [place], [address] ALK P 95 U/L Normal 45-117 [facility] Comment on above: Performed By: #### L 100.0100, L500.4050, L501.2300, L501.5200 ####[facility] [address] [place], [address] ALT [Catalytic activity/Vol] 8 U/L Low 13-56 [facility] Comment on above: Performed By: #### L 100.0100, L500.4050, L501.2300, L501.5200 ####[facility] [address] [place], [address] AST [Catalytic activity/Vol] 13 U/L Low 15-37 [facility] Comment on above: Performed By: #### L 100.0100, L500.4050, L501.2300, L501.5200 ####[facility] [address] [place], [address] Bilirubin [Mass/Vol] 0.50 mg/dL Normal 0.20-1.00 [facility] Comment on above: Result Comment: For patients on eltrombopag therapy, use of Dimension [place] TBIL is not recommended. Performed By: #### L 100.0100, L500.4050, L501.2300, L501.5200 ####[facility] [address] [place], [address] BUN/CRE 23.5 RATIO High 10-20 [facility] Comment on above: Performed By: #### L 100.0100, L500.4050, L501.2300, L501.5200 ####[facility] [address] [place], [address] CA,Total 8.0 mg/dL Low 8.5-10.1 [facility] Comment on above: Performed By: #### L 100.0100, L500.4050, L501.2300, L501.5200 ####[facility] [address] [place], [address] Chloride [Moles/Vol] 98 mmol/L Normal 98-107 [facility] Comment on above: Performed By: #### L 100.0100, L500.4050, L501.2300, L501.5200 ####[facility] [address] [place], [address] CO2 [Moles/Vol] 30.0 mmol/L Normal 21.0-32.0 [facility] Comment on above: Performed By: #### L 100.0100, L500.4050, L501.2300, L501.5200 ####[facility] [address] [place], [address] Creatinine [Mass/Vol] 0.81 mg/dL Normal 0.55-1.02 [facility] Comment on above: Result Comment: The validity of the calculated GFR GFRAA in patients over70 years has not been determined. Clinical correlation isessential. Performed By: #### L 100.0100, L500.4050, L501.2300, L501.5200 ####[facility] [address] [place], [address] ECRCL 79.01 ml/min Normal [facility] Comment on above: Performed By: #### L 100.0100, L500.4050, L501.2300, L501.5200 ####[facility] [address] [place], [address] EST GFR - AA 96 mL/min Normal >60 [facility] Comment on above: Result Comment: Afri can Cypriot GFR Calc Performed By: #### L 100.0100, L500.4050, L501.2300, L501.5200 ####[facility] [address] [place], [address] GAP 4 Low 5-15 [facility] Comment on above: Performed By: #### L 100.0100, L500.4050, L501.2300, L501.5200 ####[facility] [address] [place], [address] GFR/1.73 sq M.predicted among non-blacks MDRD (S/P/Bld) [Vol rate/Area] 79 mL/min/{1.73_m2} Normal >60 [facility] Comment on above: Result Comment: Non- GFR Calc Performed By: #### L 100.0100, L500.4050, L501.2300, L501.5200 ####[facility] [address] [place], [address] Globulin (S) [Mass/Vol] 4.7 g/dL High 2.2-4.2 [facility] Comment on above: Performed By: #### L 100.0100, L500.4050, L501.2300, L501.5200 ####[facility] [address] [place], [address] Glucose [Mass/Vol] 146 mg/dL High 74-106 [facility] Comment on above: Result Comment: Fast ing Glucose result greater than or equal to 126 mg/dLsuggests DIABETES MELLITUS per A.D.A. criteria. Performed By: #### L 100.0100, L500.4050, L501.2300, L501.5200 ####[facility] [address] [place], [address] Potassium [Moles/Vol] 3.2 mmol/L Low 3.5-5.1 [facility] Comment on above: Performed By: #### L 100.0100, L500.4050, L501.2300, L501.5200 ####[facility] [address] [place], [address] Sodium [Moles/Vol] 132 mmol/L Low 136-145 [facility] Comment on above: Performed By: #### L 100.0100, L500.4050, L501.2300, L501.5200 ####[facility] [address] [place], [address] T PROT 6.4 g/dL Normal 6.4-8.2 [facility] Comment on above: Performed By: #### L 100.0100, L500.4050, L501.2300, L501.5200 ####[facility] [address] [place], [address] Urea nitrogen [Mass/Vol] 19 mg/dL High 7-18 [facility] Comment on above: Performed By: #### L 100.0100, L500.4050, L501.2300, L501.5200 ####[facility] [address] [place], [address] M R Staph Aureus DNA by PCRo n 04-26-2024 MRSA DNA ASSAY Negative Normal Negative [facility] Comment on above: Performed By: #### L 8200.1000 ####[facility] [address] [place], [address] MRSA Wound DNA by PCRon 04-05 MRSA DNA ASSAY Negative Normal Negative [facility] Comment on above: Order Comment: left breast Performed By: #### L 8200.1075 ####[facility] [address] [place], [address] SA DNA ASSAY Negative Normal Negative [facility] Comment on above: Order Comment: left breast Performed By: #### L 8200.1075 ####[facility] [address] [place], [address] MRSA detection PCROrdered By : Nicole Trujillo on 04-26-2024 MRSA detection PCR Negative Negative [facility] Magnesiumon 04-26-2024 Magnesium [Mass/Vol] 2.2 mg/dL Normal 1.6-2.6 [facility] Comment on above: Performed By: #### L 100.0100, L500.4050, L501.2300, L501.5200 ####[facility] [address] [place], [address] Magnesium measurementOrdered By: Nicole Trujillo on 04-26-2024 Magnesium measurement 2.2 mg/dL 1.6-2.6 [facility] No Panel InformationOrdered By: Nicole Trujillo on 04-26-2024 13 U/L Low 15-37 [facility] Phosphoruson 04-26-2024 Phosphate [Mass/Vol] 3.2 mg/dL Normal 2.5-4.9 [facility] Comment on above: Performed By: #### L 100.0100, L500.4050, L501.2300, L501.5200 ####[facility] [address] [place], [place], [id number] Phosphorus measurementOrdere d By: Nicole Trujillo on 04-26-2024 Phosphorus measurement 3.2 mg/dL 2.5-4.9 [facility] Serum globulin measurementOr dered By: Nicole Trujillo on 04-26-2024 Serum globulin measurement 4.7 g/dL High 2.2-4.2 [facility] Total proteinOrdered By: Jenae Trujillo on 04-26-2024 Total protein 6.4 g/dL 6.4-8.2 [facility] Abdomen/Pelvis W IV Cont ONL Yon 04-25-2024 Abdomen/Pelvis W IV Cont ONLY Normal [facility] Bedside Glucoseon 04-25-2024 FINGERSTICK GLU 341 mg/dL High 74-106 [facility] Comment on above: Result Comment: TALIA JIMMIEENT OF PATIENT CARE PER NURSING PROTOCOL Performed By: #### L 501.080 ####[facility] [address] [place], [place], [id number] FINGERSTICK GLU 336 mg/dL High 74-106 [facility] Comment on above: Result Comment: TALIA CHAMBERS OF PATIENT CARE PER NURSING PROTOCOL Performed By: #### L 501.080 ####[facility] [address] [place], [address] CBC W/Diff, Automatedon 11-2 Absolute Lymph 0.97 X10 3/uL Normal 0.83-4.51 [facility] Comment on above: Performed By: #### L 100.0100, L501.2450, L503.6005, L500.4050 ####[facility] [address] [place], [address] Absolute Neut 10.8 X10 3/uL High 2.0-7.7 [facility] Comment on above: Performed By: #### L 100.0100, L501.2450, L503.6005, L500.4050 ####[facility] [address] [place], [address] Basophils/100 WBC (Bld) 0.4 % Normal 0-1 [facility] Comment on above: Performed By: #### L 100.0100, L501.2450, L503.6005, L500.4050 ####[facility] [address] [place], [address] Eosinophils/100 WBC (Bld) 0.5 % Normal 0-5 [facility] Comment on above: Performed By: #### L 100.0100, L501.2450, L503.6005, L500.4050 ####[facility] [address] [place], [address] Erythrocyte distribution width (RBC) [Ratio] 13.0 % Normal 11.6-14.6 [facility] Comment on above: Performed By: #### L 100.0100, L501.2450, L503.6005, L500.4050 ####[facility] [address] [place], [address] Hematocrit (Bld) [Volume fraction] 39.4 % Normal 37-47 [facility] Comment on above: Performed By: #### L 100.0100, L501.2450, L503.6005, L500.4050 ####[facility] [address] [place], [address] Hemoglobin (Bld) [Mass/Vol] 13.3 g/dL Normal 12.0-15.0 [facility] Comment on above: Performed By: #### L 100.0100, L501.2450, L503.6005, L500.4050 ####[facility] [address] [place], [address] IG% 1.100 High 0.0-0.9 [facility] Comment on above: Result Comment: IG% - Immature Granulocytes (promyelocytes, myelocytes andmetamyelocytes) > 1% indicates that a LEFT SHIFT is Present. Performed By: #### L 100.0100, L501.2450, L503.6005, L500.4050 ####[facility] [address], [address] Lymphocytes/100 WBC (Bld) 7.7 % Low 19-41 [facility] Comment on above: Performed By: #### L 100.0100, L501.2450, L503.6005, L500.4050 ####[facility] [address] [place], [address] MCH (RBC) [Entitic mass] 27.0 pg Normal 27.0-32.0 [facility] Comment on above: Performed By: #### L 100.0100, L501.2450, L503.6005, L500.4050 ####[facility] [address] [place], [address] MCHC (RBC) [Mass/Vol] 33.8 g/dL Normal 32-36 [facility] Comment on above: Performed By: #### L 100.0100, L501.2450, L503.6005, L500.4050 ####[facility] [address] [place], [address] MCV (RBC) [Entitic vol] 79.9 fL Low 81-99 [facility] Comment on above: Performed By: #### L 100.0100, L501.2450, L503.6005, L500.4050 ####[facility] [address] [place], [address] Monocytes/100 WBC (Bld) 4.2 % Normal 0-10 [facility] Comment on above: Performed By: #### L 100.0100, L501.2450, L503.6005, L500.4050 ####[facility] [address] [place], [address] Neutrophils/100 WBC (Bld) 86.1 % High 47-70 [facility] Comment on above: Performed By: #### L 100.0100, L501.2450, L503.6005, L500.4050 ####[facility] [address] [place], [address] Nucleated RBC (Bld) [#/Vol] 0 10*3/uL Normal 0-5 [facility] Comment on above: Performed By: #### L 100.0100, L501.2450, L503.6005, L500.4050 ####[facility] [address] [place], [address] Platelet mean volume (Bld) [Entitic vol] 9.4 fL Normal 6.2-12.0 [facility] Comment on above: Performed By: #### L 100.0100, L501.2450, L503.6005, L500.4050 ####[facility] [address] [place], [address] Platelets (Bld) [#/Vol] 259 10*3/uL Normal 150-450 [facility] Comment on above: Performed By: #### L 100.0100, L501.2450, L503.6005, L500.4050 ####[facility] [address] [place], [address] RBC (Bld) [#/Vol] 4.93 10*6/uL Normal 4.2-5.4 [facility] Comment on above: Performed By: #### L 100.0100, L501.2450, L503.6005, L500.4050 ####[facility] [address] [place], [address] RDW SD 37.1 fl Normal 35.1-43.9 [facility] Comment on above: Performed By: #### L 100.0100, L501.2450, L503.6005, L500.4050 ####[facility] [address] [place], [address] WBC (Bld) [#/Vol] 12.6 10*3/uL High 4.4-11.0 [facility] Comment on above: Performed By: #### L 100.0100, L501.2450, L503.6005, L500.4050 ####[facility] [address] [place], [address] Comprehensive Metabolic Prof [facility] 04-25-2024 Albumin [Mass/Vol] 2.0 g/dL Low 3.2-5.0 [facility] Comment on above: Performed By: #### L 100.0100, L501.2450, L503.6005, L500.4050 ####[facility] [address] [place], [address] Albumin/Globulin [Mass ratio] 0.4 {ratio} Low 0.9-2.4 [facility] Comment on above: Performed By: #### L 100.0100, L501.2450, L503.6005, L500.4050 ####[facility] [address] [place], [address] ALK P 124 U/L High 45-117 [facility] Comment on above: Performed By: #### L 100.0100, L501.2450, L503.6005, L500.4050 ####[facility] [address] [place], [address] ALT [Catalytic activity/Vol] 9 U/L Low 13-56 [facility] Comment on above: Performed By: #### L 100.0100, L501.2450, L503.6005, L500.4050 ####[facility] [address] [place], [address] AST [Catalytic activity/Vol] 17 U/L Normal 15-37 [facility] Comment on above: Performed By: #### L 100.0100, L501.2450, L503.6005, L500.4050 ####[facility] [address] [place], [address] Bilirubin [Mass/Vol] 0.80 mg/dL Normal 0.20-1.00 [facility] Comment on above: Result Comment: For patients on eltrombopag therapy, use of Dimension [place] TBIL is not recommended. Performed By: #### L 100.0100, L501.2450, L503.6005, L500.4050 ####[facility] [address] [place], [address] BUN/CRE 29.4 RATIO High 10-20 [facility] Comment on above: Performed By: #### L 100.0100, L501.2450, L503.6005, L500.4050 ####[facility] [address] [place], [address] CA,Total 8.7 mg/dL Normal 8.5-10.1 [facility] Comment on above: Performed By: #### L 100.0100, L501.2450, L503.6005, L500.4050 ####[facility] [address] [place], [address] Chloride [Moles/Vol] 95 mmol/L Low 98-107 [facility] Comment on above: Performed By: #### L 100.0100, L501.2450, L503.6005, L500.4050 ####[facility] [address] [place], [address] CO2 [Moles/Vol] 29.0 mmol/L Normal 21.0-32.0 [facility] Comment on above: Performed By: #### L 100.0100, L501.2450, L503.6005, L500.4050 ####[facility] [address] [place], [address] Creatinine [Mass/Vol] 0.65 mg/dL Normal 0.55-1.02 [facility] Comment on above: Result Comment: The validity of the calculated GFR GFRAA in patients over70 years has not been determined. Clinical correlation isessential. Performed By: #### L 100.0100, L501.2450, L503.6005, L500.4050 ####[facility] [address] [place], [address] ECRCL 109.13 ml/min Normal [facility] Comment on above: Performed By: #### L 100.0100, L501.2450, L503.6005, L500.4050 ####[facility] [address] [place], [address] EST GFR - AA 123 mL/min Normal >60 [facility] Comment on above: Result Comment: Afri can Cypriot GFR Calc Performed By: #### L 100.0100, L501.2450, L503.6005, L500.4050 ####[facility] [address] [place], [address] GAP 6 Normal 5-15 [facility] Comment on above: Performed By: #### L 100.0100, L501.2450, L503.6005, L500.4050 ####[facility] [address] [place], [address] GFR/1.73 sq M.predicted among non-blacks MDRD (S/P/Bld) [Vol rate/Area] 102 mL/min/{1.73_m2} Normal >60 [facility] Comment on above: Result Comment: Non- GFR Calc Performed By: #### L 100.0100, L501.2450, L503.6005, L500.4050 ####[facility] [address] [place], [address] Globulin (S) [Mass/Vol] 5.7 g/dL High 2.2-4.2 [facility] Comment on above: Performed By: #### L 100.0100, L501.2450, L503.6005, L500.4050 ####[facility] [address] [place], [address] Glucose [Mass/Vol] 359 mg/dL High 74-106 [facility] Comment on above: Result Comment: Gluc ose result greater than or equal to 200 mg/dLsuggests DIABETES MELLITUS per A.D.A. criteria. Performed By: #### L 100.0100, L501.2450, L503.6005, L500.4050 ####[facility] [address] [place], [address] Potassium [Moles/Vol] 3.5 mmol/L Normal 3.5-5.1 [facility] Comment on above: Performed By: #### L 100.0100, L501.2450, L503.6005, L500.4050 ####[facility] [address] [place], [address] Sodium [Moles/Vol] 130 mmol/L Low 136-145 [facility] Comment on above: Performed By: #### L 100.0100, L501.2450, L503.6005, L500.4050 ####[facility] [address] [place], [address] T PROT 7.7 g/dL Normal 6.4-8.2 [facility] Comment on above: Performed By: #### L 100.0100, L501.2450, L503.6005, L500.4050 ####[facility] [address] [place], [address] Urea nitrogen [Mass/Vol] 19 mg/dL High 7-18 [facility] Comment on above: Performed By: #### L 100.0100, L501.2450, L503.6005, L500.4050 ####[facility] [address] [place], [address] Emergency Department Summary on 04-25-2024 Emergency Department Summary Normal [facility] H AND P Exam - [facility] 04-25-2024 H&P Exam - Hospitalist Normal [facility] Lactic Acidon 04-25-2024 Lactate [Moles/Vol] 3.0 mmol/L Invalid Interpretation Code 0.4-1.9 [facility] Comment on above: Result Comment: Crit ical Result(s) Called at: 18:55:46 04/25/2024 by:Eneida Caraballo to Sandeep Elizalde. Results read back by same. Performed By: #### L 503.6005 ####[facility] [address] [place], [address] Lactate [Moles/Vol] 2.0 mmol/L Normal 0.4-1.9 [facility] Comment on above: Order Comment: Y Result Comment: Crit ical Result(s) Called at: 14:43:32 04/25/2024 by:Eneida Short. Results read back by same. Performed By: #### L 100.0100, L501.2450, L503.6005, L500.4050 ####[facility] [address] [place], [address] Lactic acid measurementOrder ed By: Jeremiah Rawls on 04-25-2024 Lactic acid measurement 3.0 mmol/L High 0.4-2.0 [facility] Lipaseon 04-25-2024 Lipase [Catalytic activity/Vol] 22 U/L Normal - [facility] Comment on above: Result Comment: Gege edgar note:LIPASE revised reference range effective 22.New Lipase methodology. Expected to produce lower valuesthan the previous assay method.NEW Reference Range: 13 - 75 U/L Performed By: #### L 100.0100, L501.2450, L503.6005, L500.4050 ####[facility] [address] [place], [address] Lipase measurementOrdered By : Jeremiah Rawls on 04-25-2024 Lipase measurement 22 U/L - [facility] Basic Metabolic Profile (BMP )on 02-21-2024 BUN Normal 7-18 [facility] Comment on above: Result Comment: Canc elled via OM: Order cancelled - Patient discharged Performed By: #### L 500.2500 ####[facility] [address] [place], [address] BUN/CRE Normal 10-20 [facility] Comment on above: Result Comment: Canc elled via OM: Order cancelled - Patient discharged Performed By: #### L 500.2500 ####[facility] [address] [place], [address] CA,Total Normal 8.5-10.1 [facility] Comment on above: Result Comment: Canc elled via OM: Order cancelled - Patient discharged Performed By: #### L 500.2500 ####[facility] [address] [place], [address] CL Normal 98-107 [facility] Comment on above: Result Comment: Canc elled via OM: Order cancelled - Patient discharged Performed By: #### L 500.2500 ####[facility] [address] [place], [address] CO2 Normal 21.0-32.0 [facility] Comment on above: Result Comment: Canc elled via OM: Order cancelled - Patient discharged Performed By: #### L 500.2500 ####[facility] [address] [place], [address] CREAT,SERUM Normal 0.55-1.02 [facility] Comment on above: Result Comment: Canc elled via OM: Order cancelled - Patient discharged Performed By: #### L 500.2500 ####[facility] [address] [place], [address] EST GFR Normal >60 [facility] Comment on above: Result Comment: Canc elled via OM: Order cancelled - Patient discharged Performed By: #### L 500.2500 ####[facility] [address] [place], [address] EST GFR - AA Normal >60 [facility] Comment on above: Result Comment: Canc elled via OM: Order cancelled - Patient discharged Performed By: #### L 500.2500 ####[facility] [address] [place], [address] GAP Normal 5-15 [facility] Comment on above: Result Comment: Canc elled via OM: Order cancelled - Patient discharged Performed By: #### L 500.2500 ####[facility] [address] [place], [address] GLU Normal 74-106 [facility] Comment on above: Result Comment: Canc elled via OM: Order cancelled - Patient discharged Performed By: #### L 500.2500 ####[facility] [address] [place], [address] Potassium Normal 3.5-5.1 [facility] Comment on above: Result Comment: Canc elled via OM: Order cancelled - Patient discharged Performed By: #### L 500.2500 ####[facility] [address] [place], [address] Basic Metabolic Profile (BMP) Normal 136-145 [facility] Comment on above: Result Comment: Canc elled via OM: Order cancelled - Patient discharged Performed By: #### L 500.2500 ####[facility] [address] [place], [address] Basic Metabolic Profile (BMP )on 02-19-2024 BUN/CRE 8.7 RATIO Low 10-20 [facility] Comment on above: Performed By: #### L 500.2500 ####[facility] [address] [place], [address] CA,Total 9.0 mg/dL Normal 8.5-10.1 [facility] Comment on above: Performed By: #### L 500.2500 ####[facility] [address] [place], [address] Chloride [Moles/Vol] 103 mmol/L Normal 98-107 [facility] Comment on above: Performed By: #### L 500.2500 ####[facility] [address] [place], [address] CO2 [Moles/Vol] 27.0 mmol/L Normal 21.0-32.0 [facility] Comment on above: Performed By: #### L 500.2500 ####[facility] [address] [place], [address] Creatinine [Mass/Vol] 0.80 mg/dL Normal 0.55-1.02 [facility] Comment on above: Result Comment: The validity of the calculated GFR GFRAA in patients over70 years has not been determined. Clinical correlation isessential. Performed By: #### L 500.2500 ####[facility] [address] [place], [address] ECRCL 89.06 ml/min Normal [facility] Comment on above: Performed By: #### L 500.2500 ####[facility] [address] [place], [address] EST GFR - AA 96 mL/min Normal >60 [facility] Comment on above: Result Comment: Afri can Cypriot GFR Calc Performed By: #### L 500.2500 ####[facility] [address] [place], [address] GAP 7 Normal 5-15 [facility] Comment on above: Performed By: #### L 500.2500 ####[facility] [address] [place], [address] GFR/1.73 sq M.predicted among non-blacks MDRD (S/P/Bld) [Vol rate/Area] 79 mL/min/{1.73_m2} Normal >60 [facility] Comment on above: Result Comment: Non- GFR Calc Performed By: #### L 500.2500 ####[facility] [address] [place], [address] Glucose [Mass/Vol] 88 mg/dL Normal 74-106 [facility] Comment on above: Performed By: #### L 500.2500 ####[facility] [address] [place], [address] Potassium [Moles/Vol] 3.2 mmol/L Low 3.5-5.1 [facility] Comment on above: Performed By: #### L 500.2500 ####[facility] [address] [place], [address] Sodium [Moles/Vol] 137 mmol/L Normal 136-145 [facility] Comment on above: Performed By: #### L 500.2500 ####[facility] [address] [place], [address] Urea nitrogen [Mass/Vol] 7 mg/dL Normal 7-18 [facility] Comment on above: Performed By: #### L 500.2500 ####[facility] [address] [place], [address] Bedside Glucoseon 02-18-2023 FINGERSTICK GLU 100 mg/dL Normal 74-106 [facility] Comment on above: Result Comment: TALIA GEMENT OF PATIENT CARE PER NURSING PROTOCOL Performed By: #### L 501.080 ####[facility] [address] [place], [address] FINGERSTICK GLU 90 mg/dL Normal 74-106 [facility] Comment on above: Result Comment: TALIA GEMENT OF PATIENT CARE PER NURSING PROTOCOL Performed By: #### L 501.080 ####[facility] [address] [place], [address] CBC W/Diff, Automatedon - Absolute Lymph 1.46 X10 3/uL Normal 0.83-4.51 [facility] Comment on above: Performed By: #### L 100.0100 ####[facility] [address] [place], [address] Absolute Neut 6.9 X10 3/uL Normal 2.0-7.7 [facility] Comment on above: Performed By: #### L 100.0100 ####[facility] [address] [place], [address] Basophils/100 WBC (Bld) 0.5 % Normal 0-1 [facility] Comment on above: Performed By: #### L 100.0100 ####[facility] [address] [place], [address] Eosinophils/100 WBC (Bld) 0.4 % Normal 0-5 [facility] Comment on above: Performed By: #### L 100.0100 ####[facility] [address] [place], [address] Erythrocyte distribution width (RBC) [Ratio] 14.3 % Normal 11.6-14.6 [facility] Comment on above: Performed By: #### L 100.0100 ####[facility] [address] [place], [address] Hematocrit (Bld) [Volume fraction] 39.6 % Normal 37-47 [facility] Comment on above: Performed By: #### L 100.0100 ####[facility] [address] [place], [address] Hemoglobin (Bld) [Mass/Vol] 12.4 g/dL Normal 12.0-15.0 [facility] Comment on above: Performed By: #### L 100.0100 ####[facility] [address] [place], [address] IG% 0.700 Normal 0.0-0.9 [facility] Comment on above: Result Comment: IG% - Immature Granulocytes (promyelocytes, myelocytes andmetamyelocytes) > 1% indicates that a LEFT SHIFT is Present. Performed By: #### L 100.0100 ####[facility] [address] [place], [address] Lymphocytes/100 WBC (Bld) 16.0 % Low 19-41 [facility] Comment on above: Performed By: #### L 100.0100 ####[facility] [address] [place], [address] MCH (RBC) [Entitic mass] 26.8 pg Low 27.0-32.0 [facility] Comment on above: Performed By: #### L 100.0100 ####[facility] [address] [place], [address] MCHC (RBC) [Mass/Vol] 31.3 g/dL Low 32-36 [facility] Comment on above: Performed By: #### L 100.0100 ####[facility] [address] [place], [address] MCV (RBC) [Entitic vol] 85.7 fL Normal 81-99 [facility] Comment on above: Performed By: #### L 100.0100 ####[facility] [address] [place], [address] Monocytes/100 WBC (Bld) 6.1 % Normal 0-10 [facility] Comment on above: Performed By: #### L 100.0100 ####[facility] [address] [place], [address] Neutrophils/100 WBC (Bld) 76.3 % High 47-70 [facility] Comment on above: Performed By: #### L 100.0100 ####[facility] [address] [place], [address] Nucleated RBC (Bld) [#/Vol] 0 10*3/uL Normal 0-5 [facility] Comment on above: Performed By: #### L 100.0100 ####[facility] [address] [place], [address] Platelet mean volume (Bld) [Entitic vol] 9.3 fL Normal 6.2-12.0 [facility] Comment on above: Performed By: #### L 100.0100 ####[facility] [address] [place], [address] Platelets (Bld) [#/Vol] 306 10*3/uL Normal 150-450 [facility] Comment on above: Performed By: #### L 100.0100 ####[facility] [address] [place], [address] RBC (Bld) [#/Vol] 4.62 10*6/uL Normal 4.2-5.4 [facility] Comment on above: Performed By: #### L 100.0100 ####[facility] [address] [place], [address] RDW SD 44.5 fl High 35.1-43.9 [facility] Comment on above: Performed By: #### L 100.0100 ####[facility] [address] [place], [address] WBC (Bld) [#/Vol] 9.1 10*3/uL Normal 4.4-11.0 [facility] Comment on above: Performed By: #### L 100.0100 ####[facility] [address] [place], [address] Bedside Glucoseon 02-18-2024 FINGERSTICK GLU 165 mg/dL High 74-106 [facility] Comment on above: Result Comment: TALIA GEMENT OF PATIENT CARE PER NURSING PROTOCOL Performed By: #### L 501.080 ####[facility] [address] [place], [address] FINGERSTICK GLU 100 mg/dL Normal 74-106 [facility] Comment on above: Result Comment: TALIA GEMENT OF PATIENT CARE PER NURSING PROTOCOL Performed By: #### L 501.080 ####[facility] [address] [place], [address] FINGERSTICK GLU 102 mg/dL Normal 74-106 [facility] Comment on above: Result Comment: TALIA GEMENT OF PATIENT CARE PER NURSING PROTOCOL Performed By: #### L 501.080 ####[facility] [address] [place], [address] FINGERSTICK GLU 136 mg/dL High 74-106 [facility] Comment on above: Result Comment: TALIA CHAMBERS OF PATIENT CARE PER NURSING PROTOCOL Performed By: #### L 501.080 ####[facility] [address] [place], [address] Basic Metabolic Profile (BMP )on 02-17-2024 BUN/CRE 14.4 RATIO Normal 10-20 [facility] Comment on above: Performed By: #### L 500.2500, L100.0100 ####[facility] [address] [place], [address] CA,Total 8.6 mg/dL Normal 8.5-10.1 [facility] Comment on above: Performed By: #### L 500.2500, L100.0100 ####[facility] [address] [place], [address] Chloride [Moles/Vol] 103 mmol/L Normal 98-107 [facility] Comment on above: Performed By: #### L 500.2500, L100.0100 ####[facility] [address] [place], [address] CO2 [Moles/Vol] 28.0 mmol/L Normal 21.0-32.0 [facility] Comment on above: Performed By: #### L 500.2500, L100.0100 ####[facility] [address] [place], [address] Creatinine [Mass/Vol] 0.62 mg/dL Normal 0.55-1.02 [facility] Comment on above: Result Comment: The validity of the calculated GFR GFRAA in patients over70 years has not been determined. Clinical correlation isessential. Performed By: #### L 500.2500, L100.0100 ####[facility] [address] [place], [address] ECRCL 114.92 ml/min Normal [facility] Comment on above: Performed By: #### L 500.2500, L100.0100 ####[facility] [address] [place], [address] EST GFR - AA 129 mL/min Normal >60 [facility] Comment on above: Result Comment: Afri can Cypriot GFR Calc Performed By: #### L 500.2500, L100.0100 ####[facility] [address] [place], [address] GAP 5 Normal 5-15 [facility] Comment on above: Performed By: #### L 500.2500, L100.0100 ####[facility] [address] [place], [address] GFR/1.73 sq M.predicted among non-blacks MDRD (S/P/Bld) [Vol rate/Area] 107 mL/min/{1.73_m2} Normal >60 [facility] Comment on above: Result Comment: Non- GFR Calc Performed By: #### L 500.2500, L100.0100 ####[facility] [address] [place], [address] Glucose [Mass/Vol] 88 mg/dL Normal 74-106 [facility] Comment on above: Performed By: #### L 500.2500, L100.0100 ####[facility] [address] [place], [address] Potassium [Moles/Vol] 3.2 mmol/L Low 3.5-5.1 [facility] Comment on above: Performed By: #### L 500.2500, L100.0100 ####[facility] [address] [place], [address] Sodium [Moles/Vol] 136 mmol/L Normal 136-145 [facility] Comment on above: Performed By: #### L 500.2500, L100.0100 ####[facility] [address] [place], [address] Urea nitrogen [Mass/Vol] 9 mg/dL Normal 7-18 [facility] Comment on above: Performed By: #### L 500.2500, L100.0100 ####[facility] [address] [place], [address] Bedside Glucoseon 02-17-2024 FINGERSTICK GLU 111 mg/dL High 74-106 [facility] Comment on above: Result Comment: TALIA GEMENT OF PATIENT CARE PER NURSING PROTOCOL Performed By: #### L 501.080 ####[facility] [address] [place], [address] FINGERSTICK GLU 113 mg/dL High 74-106 [facility] Comment on above: Result Comment: TALIA GEMENT OF PATIENT CARE PER NURSING PROTOCOL Performed By: #### L 501.080 ####[facility] [address] [place], [address] FINGERSTICK GLU 114 mg/dL High 74-106 [facility] Comment on above: Result Comment: TALIA GEMENT OF PATIENT CARE PER NURSING PROTOCOL Performed By: #### L 501.080 ####[facility] [address] [place], [address] FINGERSTICK GLU 98 mg/dL Normal 74-106 [facility] Comment on above: Result Comment: TALIA GEMENT OF PATIENT CARE PER NURSING PROTOCOL Performed By: #### L 501.080 ####[facility] [address] [place], [address] CBC W/Diff, Automatedon 02-02 Absolute Lymph 1.42 X10 3/uL Normal 0.83-4.51 [facility] Comment on above: Performed By: #### L 500.2500, L100.0100 ####[facility] [address] [place], [address] Absolute Neut 7.4 X10 3/uL Normal 2.0-7.7 [facility] Comment on above: Performed By: #### L 500.2500, L100.0100 ####[facility] [address] [place], [address] Basophils/100 WBC (Bld) 0.7 % Normal 0-1 [facility] Comment on above: Performed By: #### L 500.2500, L100.0100 ####[facility] [address] [place], [address] Eosinophils/100 WBC (Bld) 1.7 % Normal 0-5 [facility] Comment on above: Performed By: #### L 500.2500, L100.0100 ####[facility] [address] [place], [address] Erythrocyte distribution width (RBC) [Ratio] 14.1 % Normal 11.6-14.6 [facility] Comment on above: Performed By: #### L 500.2500, L100.0100 ####[facility] [address] [place], [address] Hematocrit (Bld) [Volume fraction] 36.9 % Low 37-47 [facility] Comment on above: Performed By: #### L 500.2500, L100.0100 ####[facility] [address] [place], [address] Hemoglobin (Bld) [Mass/Vol] 11.6 g/dL Low 12.0-15.0 [facility] Comment on above: Performed By: #### L 500.2500, L100.0100 ####[facility] [address] [place], [address] IG% 0.400 Normal 0.0-0.9 [facility] Comment on above: Result Comment: IG% - Immature Granulocytes (promyelocytes, myelocytes andmetamyelocytes) > 1% indicates that a LEFT SHIFT is Present. Performed By: #### L 500.2500, L100.0100 ####[facility] [address] [place], [address] Lymphocytes/100 WBC (Bld) 14.7 % Low 19-41 [facility] Comment on above: Performed By: #### L 500.2500, L100.0100 ####[facility] [address] [place], [address] MCH (RBC) [Entitic mass] 27.1 pg Normal 27.0-32.0 [facility] Comment on above: Performed By: #### L 500.2500, L100.0100 ####[facility] [address] [place], [address] MCHC (RBC) [Mass/Vol] 31.4 g/dL Low 32-36 [facility] Comment on above: Performed By: #### L 500.2500, L100.0100 ####[facility] [address] [place], [address] MCV (RBC) [Entitic vol] 86.2 fL Normal 81-99 [facility] Comment on above: Performed By: #### L 500.2500, L100.0100 ####[facility] [address] [place], [address] Monocytes/100 WBC (Bld) 6.5 % Normal 0-10 [facility] Comment on above: Performed By: #### L 500.2500, L100.0100 ####[facility] [address] [place], [address] Neutrophils/100 WBC (Bld) 76.0 % High 47-70 [facility] Comment on above: Performed By: #### L 500.2500, L100.0100 ####[facility] [address] [place], [address] Nucleated RBC (Bld) [#/Vol] 0 10*3/uL Normal 0-5 [facility] Comment on above: Performed By: #### L 500.2500, L100.0100 ####[facility] [address] [place], [address] Platelet mean volume (Bld) [Entitic vol] 9.7 fL Normal 6.2-12.0 [facility] Comment on above: Performed By: #### L 500.2500, L100.0100 ####[facility] [address] [place], [address] Platelets (Bld) [#/Vol] 254 10*3/uL Normal 150-450 [facility] Comment on above: Performed By: #### L 500.2500, L100.0100 ####[facility] [address] [place], [address] RBC (Bld) [#/Vol] 4.28 10*6/uL Normal 4.2-5.4 [facility] Comment on above: Performed By: #### L 500.2500, L100.0100 ####[facility] [address] [place], [address] RDW SD 43.9 fl Normal 35.1-43.9 [facility] Comment on above: Performed By: #### L 500.2500, L100.0100 ####[facility] [address] [place], [address] WBC (Bld) [#/Vol] 9.7 10*3/uL Normal 4.4-11.0 [facility] Comment on above: Performed By: #### L 500.2500, L100.0100 ####[facility] [address] [place], [address] Discharge Instructionon 02-02 Discharge Instruction Normal [facility] Basic Metabolic Profile (BMP )on 02-16-2024 BUN/CRE 17.7 RATIO Normal 10-20 [facility] Comment on above: Performed By: #### L 100.0100, L500.2500 ####[facility] [address] [place], [address] CA,Total 8.7 mg/dL Normal 8.5-10.1 [facility] Comment on above: Performed By: #### L 100.0100, L500.2500 ####[facility] [address] [place], [address] Chloride [Moles/Vol] 104 mmol/L Normal 98-107 [facility] Comment on above: Performed By: #### L 100.0100, L500.2500 ####[facility] [address] [place], [address] CO2 [Moles/Vol] 28.0 mmol/L Normal 21.0-32.0 [facility] Comment on above: Performed By: #### L 100.0100, L500.2500 ####[facility] [address] [place], [address] Creatinine [Mass/Vol] 0.73 mg/dL Normal 0.55-1.02 [facility] Comment on above: Result Comment: The validity of the calculated GFR GFRAA in patients over70 years has not been determined. Clinical correlation isessential. Performed By: #### L 100.0100, L500.2500 ####[facility] [address] [place], [address] ECRCL 97.60 ml/min Normal [facility] Comment on above: Performed By: #### L 100.0100, L500.2500 ####[facility] [address] [place], [address] EST GFR - AA 107 mL/min Normal >60 [facility] Comment on above: Result Comment: Afri can Cypriot GFR Calc Performed By: #### L 100.0100, L500.2500 ####[facility] [address] [place], [address] GAP 5 Normal 5-15 [facility] Comment on above: Performed By: #### L 100.0100, L500.2500 ####[facility] [address] [place], [address] GFR/1.73 sq M.predicted among non-blacks MDRD (S/P/Bld) [Vol rate/Area] 88 mL/min/{1.73_m2} Normal >60 [facility] Comment on above: Result Comment: Non- GFR Calc Performed By: #### L 100.0100, L500.2500 ####[facility] [address] [place], [address] Glucose [Mass/Vol] 123 mg/dL High 74-106 [facility] Comment on above: Result Comment: Fast ing Glucose result from 100 to 125 mg/dLsuggests IMPAIRED HOMEOSTASIS per A.D.A. criteria. Performed By: #### L 100.0100, L500.2500 ####[facility] [address] [place], [address] Potassium [Moles/Vol] 3.2 mmol/L Low 3.5-5.1 [facility] Comment on above: Performed By: #### L 100.0100, L500.2500 ####[facility] [address] [place], [address] Sodium [Moles/Vol] 137 mmol/L Normal 136-145 [facility] Comment on above: Performed By: #### L 100.0100, L500.2500 ####[facility] [address] [place], [address] Urea nitrogen [Mass/Vol] 13 mg/dL Normal 7-18 [facility] Comment on above: Performed By: #### L 100.0100, L500.2500 ####[facility] [address] [place], [address] Bedside Glucoseon 02-16-2024 FINGERSTICK GLU 174 mg/dL High [address] [place] [address] Comment on above: Result Comment: TALIA GEMENT OF PATIENT CARE PER NURSING PROTOCOL Performed By: #### L 501.080 ####[facility] [address] [place], [address] FINGERSTICK GLU 114 mg/dL High [facility]106 [facility] Comment on above: Result Comment: TALIA GEMENT OF PATIENT CARE PER NURSING PROTOCOL Performed By: #### L 501.080 ####[facility] [address] [place], [address] FINGERSTICK GLU 192 mg/dL High [address] [place] [address] Comment on above: Result Comment: TALIA GEMENT OF PATIENT CARE PER NURSING PROTOCOL Performed By: #### L 501.080 ####[facility] [address] [place], [address] FINGERSTICK GLU 139 mg/dL High [address] [place] [address] Comment on above: Result Comment: TALIA GEMENT OF PATIENT CARE PER NURSING PROTOCOL Performed By: #### L 501.080 ####[facility] [address] [place], [address] CBC W/Diff, Automatedon 02-02 Absolute Lymph 1.44 X10 3/uL Normal 0.83-4.51 [facility] Comment on above: Performed By: #### L 100.0100, L500.2500 ####[facility] [address] [place], [address] Absolute Neut 5.9 X10 3/uL Normal 2.0-7.7 [facility] Comment on above: Performed By: #### L 100.0100, L500.2500 ####[facility] [address] [place], [address] Basophils/100 WBC (Bld) 0.6 % Normal 0-1 [facility] Comment on above: Performed By: #### L 100.0100, L500.2500 ####[facility] [address] [place], [address] Eosinophils/100 WBC (Bld) 2.3 % Normal 0-5 [facility] Comment on above: Performed By: #### L 100.0100, L500.2500 ####[facility] [address] [place], [address] Erythrocyte distribution width (RBC) [Ratio] 14.2 % Normal 11.6-14.6 [facility] Comment on above: Performed By: #### L 100.0100, L500.2500 ####[facility] [address] [place], [address] Hematocrit (Bld) [Volume fraction] 36.3 % Low 37-47 [facility] Comment on above: Performed By: #### L 100.0100, L500.2500 ####[facility] [address] [place], [address] Hemoglobin (Bld) [Mass/Vol] 11.4 g/dL Low 12.0-15.0 [facility] Comment on above: Performed By: #### L 100.0100, L500.2500 ####[facility] [address] [place], [address] IG% 0.600 Normal 0.0-0.9 [facility] Comment on above: Result Comment: IG% - Immature Granulocytes (promyelocytes, myelocytes andmetamyelocytes) > 1% indicates that a LEFT SHIFT is Present. Performed By: #### L 100.0100, L500.2500 ####[facility] [address] [place], [address] Lymphocytes/100 WBC (Bld) 17.5 % Low 19-41 [facility] Comment on above: Performed By: #### L 100.0100, L500.2500 ####[facility] [address] [place], [address] MCH (RBC) [Entitic mass] 26.9 pg Low 27.0-32.0 [facility] Comment on above: Performed By: #### L 100.0100, L500.2500 ####[facility] [address] [place], [address] MCHC (RBC) [Mass/Vol] 31.4 g/dL Low 32-36 [facility] Comment on above: Performed By: #### L 100.0100, L500.2500 ####[facility] [address] [place], [address] MCV (RBC) [Entitic vol] 85.6 fL Normal 81-99 [facility] Comment on above: Performed By: #### L 100.0100, L500.2500 ####[facility] [address] [place], [address] Monocytes/100 WBC (Bld) 7.7 % Normal 0-10 [facility] Comment on above: Performed By: #### L 100.0100, L500.2500 ####[facility] [address] [place], [address] Neutrophils/100 WBC (Bld) 71.3 % High 47-70 [facility] Comment on above: Performed By: #### L 100.0100, L500.2500 ####[facility] [address] [place], [address] Nucleated RBC (Bld) [#/Vol] 0 10*3/uL Normal 0-5 [facility] Comment on above: Performed By: #### L 100.0100, L500.2500 ####[facility] [address] [place], [address] Platelet mean volume (Bld) [Entitic vol] 9.4 fL Normal 6.2-12.0 [facility] Comment on above: Performed By: #### L 100.0100, L500.2500 ####[facility] [address] [place], [address] Platelets (Bld) [#/Vol] 241 10*3/uL Normal 150-450 [facility] Comment on above: Performed By: #### L 100.0100, L500.2500 ####[facility] [address] [place], [address] RBC (Bld) [#/Vol] 4.24 10*6/uL Normal 4.2-5.4 [facility] Comment on above: Performed By: #### L 100.0100, L500.2500 ####[facility] [address] [place], [address] RDW SD 43.9 fl Normal 35.1-43.9 [facility] Comment on above: Performed By: #### L 100.0100, L500.2500 ####[facility] [address] [place], [address] WBC (Bld) [#/Vol] 8.2 10*3/uL Normal 4.4-11.0 [facility] Comment on above: Performed By: #### L 100.0100, L500.2500 ####[facility] [address] [place], [address] Basic Metabolic Profile (BMP )on 02-15-2024 BUN/CRE 11.1 RATIO Normal 10-20 [facility] Comment on above: Performed By: #### L 501.9985, L500.2500 ####[facility] [address] [place], [address] CA,Total 8.7 mg/dL Normal 8.5-10.1 [facility] Comment on above: Performed By: #### L 501.9985, L500.2500 ####[facility] [address] [place], [address] Chloride [Moles/Vol] 102 mmol/L Normal 98-107 [facility] Comment on above: Performed By: #### L 501.9985, L500.2500 ####[facility] [address] [place], [address] CO2 [Moles/Vol] 28.0 mmol/L Normal 21.0-32.0 [facility] Comment on above: Performed By: #### L 501.9985, L500.2500 ####[facility] [address] [place], [address] Creatinine [Mass/Vol] 0.63 mg/dL Normal 0.55-1.02 [facility] Comment on above: Result Comment: The validity of the calculated GFR GFRAA in patients over70 years has not been determined. Clinical correlation isessential. Performed By: #### L 501.9985, L500.2500 ####[facility] [address] [place], [address] ECRCL 113.10 ml/min Normal [facility] Comment on above: Performed By: #### L 501.9985, L500.2500 ####[facility] [address] [place], [address] EST GFR - AA 127 mL/min Normal >60 [facility] Comment on above: Result Comment: Afri can Cypriot GFR Calc Performed By: #### L 501.9985, L500.2500 ####[facility] [address] [place], [address] GAP 5 Normal 5-15 [facility] Comment on above: Performed By: #### L 501.9985, L500.2500 ####[facility] [address] [place], [address] GFR/1.73 sq M.predicted among non-blacks MDRD (S/P/Bld) [Vol rate/Area] 105 mL/min/{1.73_m2} Normal >60 [facility] Comment on above: Result Comment: Non- GFR Calc Performed By: #### L 501.9985, L500.2500 ####[facility] [address] [place], [address] Glucose [Mass/Vol] 151 mg/dL High 74-106 [facility] Comment on above: Result Comment: Fast ing Glucose result greater than or equal to 126 mg/dLsuggests DIABETES MELLITUS per A.D.A. criteria. Performed By: #### L 501.9985, L500.2500 ####[facility] [address] [place], [address] Potassium [Moles/Vol] 3.1 mmol/L Low 3.5-5.1 [facility] Comment on above: Performed By: #### L 501.9985, L500.2500 ####[facility] [address] [place], [address] Sodium [Moles/Vol] 135 mmol/L Low 136-145 [facility] Comment on above: Performed By: #### L 501.9985, L500.2500 ####[facility] [address] [place], [address] Urea nitrogen [Mass/Vol] 7 mg/dL Normal 7-18 [facility] Comment on above: Performed By: #### L 501.9985, L500.2500 ####[facility] [address] [place], [address] Bedside Glucoseon 02-15-2024 FINGERSTICK GLU 153 mg/dL High 74-106 [facility] Comment on above: Result Comment: TALIA CHAMBERS OF PATIENT CARE PER NURSING PROTOCOL Performed By: #### L 501.080 ####[facility] [address] [place], [address] FINGERSTICK GLU 191 mg/dL High 74-106 [facility] Comment on above: Result Comment: TALIA GEMENT OF PATIENT CARE PER NURSING PROTOCOL Performed By: #### L 501.080 ####[facility] [address] [place], [address] FINGERSTICK GLU 157 mg/dL High 74-106 [facility] Comment on above: Result Comment: TALIA GEMENT OF PATIENT CARE PER NURSING PROTOCOL Performed By: #### L 501.080 ####[facility] [address] [place], [address] FINGERSTICK GLU 149 mg/dL High 74-106 [facility] Comment on above: Result Comment: TALIA GEMENT OF PATIENT CARE PER NURSING PROTOCOL Performed By: #### L 501.080 ####[facility] [address] [place], [address] Hemoglobin A1con 02-15-2024 HbA1c (Bld) [Mass fraction] 9.8 % High 3.8-5.6 [facility] Comment on above: Result Comment: Norm al < 5.7 % Prediabetic 5.7 - 6.4 % Diabetic >or= 6.5 % Please note range changes. Performed By: #### L 501.9985, L500.2500 ####[facility] [address] [place], [address] Abdomen/Pelvis W IV Cont ONL Yon 02-14-2024 Abdomen/Pelvis W IV Cont ONLY Normal [facility] Basic Metabolic Profile (BMP )on 02-14-2024 BUN/CRE 9.0 RATIO Low 10-20 [facility] Comment on above: Performed By: #### L 500.2500, L100.0100 ####[facility] [address] [place], [address] CA,Total 8.9 mg/dL Normal 8.5-10.1 [facility] Comment on above: Performed By: #### L 500.2500, L100.0100 ####[facility] [address] [place], [address] Chloride [Moles/Vol] 102 mmol/L Normal 98-107 [facility] Comment on above: Performed By: #### L 500.2500, L100.0100 ####[facility] [address] [place], [address] CO2 [Moles/Vol] 24.0 mmol/L Normal 21.0-32.0 [facility] Comment on above: Performed By: #### L 500.2500, L100.0100 ####[facility] [address] [place], [address] Creatinine [Mass/Vol] 0.66 mg/dL Normal 0.55-1.02 [facility] Comment on above: Result Comment: The validity of the calculated GFR GFRAA in patients over70 years has not been determined. Clinical correlation isessential. Performed By: #### L 500.2500, L100.0100 ####[facility] [address] [place], [address] EST GFR - AA 120 mL/min Normal >60 [facility] Comment on above: Result Comment: Afri can Cypriot GFR Calc Performed By: #### L 500.2500, L100.0100 ####[facility] [address] [place], [address] GAP 7 Normal 5-15 [facility] Comment on above: Performed By: #### L 500.2500, L100.0100 ####[facility] [address] [place], [address] GFR/1.73 sq M.predicted among non-blacks MDRD (S/P/Bld) [Vol rate/Area] 99 mL/min/{1.73_m2} Normal >60 [facility] Comment on above: Result Comment: Non- GFR Calc Performed By: #### L 500.2500, L100.0100 ####[facility] [address] [place], [address] Glucose [Mass/Vol] 257 mg/dL High 74-106 [facility] Comment on above: Result Comment: Gluc ose result greater than or equal to 200 mg/dLsuggests DIABETES MELLITUS per A.D.A. criteria. Performed By: #### L 500.2500, L100.0100 ####[facility] [address] [place], [address] Potassium [Moles/Vol] 3.2 mmol/L Low 3.5-5.1 [facility] Comment on above: Performed By: #### L 500.2500, L100.0100 ####[facility] [address] [place], [address] Sodium [Moles/Vol] 133 mmol/L Low 136-145 [facility] Comment on above: Performed By: #### L 500.2500, L100.0100 ####[facility] [address] [place], [address] Urea nitrogen [Mass/Vol] 6 mg/dL Low 7-18 [facility] Comment on above: Performed By: #### L 500.2500, L100.0100 ####[facility] [address] [place], [address] Bedside Glucoseon 02-14-2024 FINGERSTICK GLU 300 mg/dL High 74-106 [facility] Comment on above: Result Comment: TALIA JIMMIEENT OF PATIENT CARE PER NURSING PROTOCOL Performed By: #### L 501.080 ####[facility] [address] [place], [address] CBC W/Diff, Automatedon 02-02 Absolute Lymph 0.99 X10 3/uL Normal 0.83-4.51 [facility] Comment on above: Order Comment: REUBEN Gomez PREVIOUS SPECIMEN REJECTED DUE TOSPECIMEN BEING QNS. 02/14/24 1402 Jevon R Stoner. Performed By: #### L 100.0100 ####[facility] [address] [place], [address] Absolute Neut 6.1 X10 3/uL Normal 2.0-7.7 [facility] Comment on above: Order Comment: REDRA W. PREVIOUS SPECIMEN REJECTED DUE TOSPECIMEN BEING QNS. 02/14/24 1402 Jevon Vergarar. Performed By: #### L 100.0100 ####[facility] [address] [place], [address] Basophils/100 WBC (Bld) 0.8 % Normal 0-1 [facility] Comment on above: Order Comment: REDRA W. PREVIOUS SPECIMEN REJECTED DUE TOSPECIMEN BEING QNS. 02/14/24 1402 Jevon Vergarar. Performed By: #### L 100.0100 ####[facility] [address] [place], [address] Eosinophils/100 WBC (Bld) 1.5 % Normal 0-5 [facility] Comment on above: Order Comment: REDRA W. PREVIOUS SPECIMEN REJECTED DUE TOSPECIMEN BEING QNS. 02/14/24 1402 Jevon Vergarar. Performed By: #### L 100.0100 ####[facility] [address] [place], [address] Erythrocyte distribution width (RBC) [Ratio] 13.8 % Normal 11.6-14.6 [facility] Comment on above: Order Comment: REDRA W. PREVIOUS SPECIMEN REJECTED DUE TOSPECIMEN BEING QNS. 02/14/24 1402 Jevon Vergarar. Performed By: #### L 100.0100 ####[facility] [address] [place], [address] Hematocrit (Bld) [Volume fraction] 38.9 % Normal 37-47 [facility] Comment on above: Order Comment: REDRA W. PREVIOUS SPECIMEN REJECTED DUE TOSPECIMEN BEING QNS. 09/05/27 1402 Jevon Squires Performed By: #### L 100.0100 ####[facility] [address] [place], [address] Hemoglobin (Bld) [Mass/Vol] 12.3 g/dL Normal 12.0-15.0 [facility] Comment on above: Order Comment: REDRA W. PREVIOUS SPECIMEN REJECTED DUE TOSPECIMEN BEING QNS. 02/14/241401 Jevon Squires Performed By: #### L 100.0100 ####[facility] [address] [place], [address] IG% 0.400 Normal 0.0-0.9 [facility] Comment on above: Order Comment: REDRA W. PREVIOUS SPECIMEN REJECTED DUE TOSPECIMEN BEING QNS. 02/14/24 1402 Jevon Squires Result Comment: IG% - Immature Granulocytes (promyelocytes, myelocytes andmetamyelocytes) > 1% indicates that a LEFT SHIFT is Present. Performed By: #### L 100.0100 ####[facility] [address] [place], [address] Lymphocytes/100 WBC (Bld) 12.6 % Low 19-41 [facility] Comment on above: Order Comment: REDRA W. PREVIOUS SPECIMEN REJECTED DUE TOSPECIMEN BEING QNS. 02/14/24 1402 Jevon Squires Performed By: #### L 100.0100 ####[facility] [address] [place], [address] MCH (RBC) [Entitic mass] 26.7 pg Low 27.0-32.0 [facility] Comment on above: Order Comment: REDRA W. PREVIOUS SPECIMEN REJECTED DUE TOSPECIMEN BEING QNS. 02/14/24 1402 Jevon Squires Performed By: #### L 100.0100 ####[facility] [address] [place], [address] MCHC (RBC) [Mass/Vol] 31.6 g/dL Low 32-36 [facility] Comment on above: Order Comment: REDRA W. PREVIOUS SPECIMEN REJECTED DUE TOSPECIMEN BEING QNS. 02/14/24 1402 Jevon Squires Performed By: #### L 100.0100 ####[facility] [address] [place], [address] MCV (RBC) [Entitic vol] 84.4 fL Normal 81-99 [facility] Comment on above: Order Comment: REDRA W. PREVIOUS SPECIMEN REJECTED DUE TOSPECIMEN BEING QNS. 02/14/24 1402 Jevon Angeles. Performed By: #### L 100.0100 ####[facility] [address] [place], [address] Monocytes/100 WBC (Bld) 6.9 % Normal 0-10 [facility] Comment on above: Order Comment: REDRA W. PREVIOUS SPECIMEN REJECTED DUE TOSPECIMEN BEING QNS. 02/14/24 1402 Jevon Angeles. Performed By: #### L 100.0100 ####[facility] [address] [place], [address] Neutrophils/100 WBC (Bld) 77.8 % High 47-70 [facility] Comment on above: Order Comment: REDRA W. PREVIOUS SPECIMEN REJECTED DUE TOSPECIMEN BEING QNS. 02/14/24 1402 Jevon Angeles. Performed By: #### L 100.0100 ####[facility] [address] [place], [address] Nucleated RBC (Bld) [#/Vol] 0 10*3/uL Normal 0-5 [facility] Comment on above: Order Comment: REDRA W. PREVIOUS SPECIMEN REJECTED DUE TOSPECIMEN BEING QNS. 02/14/24 1402 Jevon Squires Performed By: #### L 100.0100 ####[facility] [address] [place], [address] Platelet mean volume (Bld) [Entitic vol] 9.4 fL Normal 6.2-12.0 [facility] Comment on above: Order Comment: REDRA W. PREVIOUS SPECIMEN REJECTED DUE TOSPECIMEN BEING QNS. 02/14/24 1402 Jevon Vergarar. Performed By: #### L 100.0100 ####[facility] [address] [place], [address] Platelets (Bld) [#/Vol] 243 10*3/uL Normal 150-450 [facility] Comment on above: Order Comment: REDRA W. PREVIOUS SPECIMEN REJECTED DUE TOSPECIMEN BEING QNS. 02/14/24 1402 Jevon Vergarar. Performed By: #### L 100.0100 ####[facility] [address] [place], [address] RBC (Bld) [#/Vol] 4.61 10*6/uL Normal 4.2-5.4 [facility] Comment on above: Order Comment: REDRA W. PREVIOUS SPECIMEN REJECTED DUE TOSPECIMEN BEING QNS. 02/14/24 1402 Jevon Vergarar. Performed By: #### L 100.0100 ####[facility] [address] [place], [address] RDW SD 42.3 fl Normal 35.1-43.9 [facility] Comment on above: Order Comment: REDRA W. PREVIOUS SPECIMEN REJECTED DUE TOSPECIMEN BEING QNS. 02/14/24 1402 Jevon Vergarar. Performed By: #### L 100.0100 ####[facility] [address] [place], [address] WBC (Bld) [#/Vol] 7.8 10*3/uL Normal 4.4-11.0 [facility] Comment on above: Order Comment: REDRA W. PREVIOUS SPECIMEN REJECTED DUE TOSPECIMEN BEING QNS. 02/14/24 1402 Jevon Vergarar. Performed By: #### L 100.0100 ####[facility] [address] [place], [address] Absolute Neut Normal 2.0-7.7 [facility] Comment on above: Result Comment: This specimen has been REJECTED due to Laboratory criteria:Quanity Not Sufficient.ER has been notified of need of recollection.02/14/241400 Jevon R Stoner Performed By: #### L 500.2500, L100.0100 ####[facility] [address] [place], [address] HCT Normal 37-47 [facility] Comment on above: Result Comment: This specimen has been REJECTED due to Laboratory criteria:Quanity Not Sufficient.ER has been notified of need of recollection.02/14/241400 Jevon R Stoner Performed By: #### L 500.2500, L100.0100 ####[facility] [address] [place], [address] HGB Normal 12.0-15.0 [facility] Comment on above: Result Comment: This specimen has been REJECTED due to Laboratory criteria:Quanity Not Sufficient.ER has been notified of need of recollection.02/14/241400 Jevon R Stoner Performed By: #### L 500.2500, L100.0100 ####[facility] [address] [place], [address] MCH Normal 27.0-32.0 [facility] Comment on above: Result Comment: This specimen has been REJECTED due to Laboratory criteria:Quanity Not Sufficient.ER has been notified of need of recollection.02/14/241400 Jevon R Stoner Performed By: #### L 500.2500, L100.0100 ####[facility] [address] [place], [address] MCHC Normal 32-36 [facility] Comment on above: Result Comment: This specimen has been REJECTED due to Laboratory criteria:Quanity Not Sufficient.ER has been notified of need of recollection.02/14/241400 Jevon R Stoner Performed By: #### L 500.2500, L100.0100 ####[facility] [address] [place], [address] MCV Normal 81-99 [facility] Comment on above: Result Comment: This specimen has been REJECTED due to Laboratory criteria:Quanity Not Sufficient.ER has been notified of need of recollection.02/14/24 140 Jevon R Stoner Performed By: #### L 500.2500, L100.0100 ####[facility] [address] [place], [address] NEUT% Normal 47-70 [facility] Comment on above: Result Comment: This specimen has been REJECTED due to Laboratory criteria:Quanity Not Sufficient.ER has been notified of need of recollection.02/14/241400 Jevon R Stoner Performed By: #### L 500.2500, L100.0100 ####[facility] [address] [place], [address] PLT Normal 150-450 [facility] Comment on above: Result Comment: This specimen has been REJECTED due to Laboratory criteria:Quanity Not Sufficient.ER has been notified of need of recollection.02/14/241400 Jevon R Stoner Performed By: #### L 500.2500, L100.0100 ####[facility] [address] [place], [address] RBC Normal 4.2-5.4 [facility] Comment on above: Result Comment: This specimen has been REJECTED due to Laboratory criteria:Quanity Not Sufficient.ER has been notified of need of recollection.02/14/241400 Jevon R Stoner Performed By: #### L 500.2500, L100.0100 ####[facility] [address] [place], [address] RDW CV Normal 11.6-14.6 [facility] Comment on above: Result Comment: This specimen has been REJECTED due to Laboratory criteria:Quanity Not Sufficient.ER has been notified of need of recollection.02/14/24 1401 Jevon Osborne Stoner Performed By: #### L 500.2500, L100.0100 ####[facility] [address] [place], [address] RDW SD Normal 35.1-43.9 [facility] Comment on above: Result Comment: This specimen has been REJECTED due to Laboratory criteria:Quanity Not Sufficient.ER has been notified of need of recollection.02/14/24 1401 Jevon Osborne Stoner Performed By: #### L 500.2500, L100.0100 ####[facility] [address] [place], [address] WBC Normal 4.4-11.0 [facility] Comment on above: Result Comment: This specimen has been REJECTED due to Laboratory criteria:Quanity Not Sufficient.ER has been notified of need of recollection.02/14/24 140 Jevon Osborne Stoner Performed By: #### L 500.2500, L100.0100 ####[facility] [address] [place], [address] Emergency Department Summary on 02-14-2024 Emergency Department Summary Normal [facility] H AND P Exam - [facility]iston 02-14-2024 H&P Exam - Hospitalist Normal [facility] 02-06-2024 [facility] Telephone (KAITY) ----- TRENTON JACKSON ([id number]) 1970 F [place] Date Time Provider Department 02/06/24 GERDA RIVERO During your visit today, we recorded the following information about you: Allergies As of Date: 02/06/2024 Noted Allergy Reaction LATEX 01/18/2011 9 - Itching Comments: Red and dry cracking skin Date Reviewed: 10/19/2023 Reviewed by: Jose Antonio Singh APRN.TERMINAL PRESS OPERATOR - Fully Assessed Reason for Visit: Appointment [...] all medications X 4 days per her uasolp-60-9-2017. Problem List As Of Date 02/06/2024 Noted [...] Coronary artery (more content not included)... Normal [facility] Abdomen/Pelvis W IV Cont ONL Yon 01-10-2024 Abdomen/Pelvis W IV Cont ONLY Normal [facility] Basic Metabolic Profile (BMP )on 01-10-2024 BUN/CRE 11.2 RATIO Normal 10-20 [facility] Comment on above: Performed By: #### L 500.2500, L100.0100 ####[facility] [address] [place], [address] CA,Total 9.5 mg/dL Normal 8.5-10.1 [facility] Comment on above: Performed By: #### L 500.2500, L100.0100 ####[facility] [address] [place], [address] Chloride [Moles/Vol] 100 mmol/L Normal 98-107 [facility] Comment on above: Performed By: #### L 500.2500, L100.0100 ####[facility] [address] [place], [address] CO2 [Moles/Vol] 25.0 mmol/L Normal 21.0-32.0 [facility] Comment on above: Performed By: #### L 500.2500, L100.0100 ####[facility] [address] [place], [address] Creatinine [Mass/Vol] 0.89 mg/dL Normal 0.55-1.02 [facility] Comment on above: Result Comment: The validity of the calculated GFR GFRAA in patients over70 years has not been determined. Clinical correlation isessential. Performed By: #### L 500.2500, L100.0100 ####[facility] [address] [place], [address] ECRCL 82.34 ml/min Normal [facility] Comment on above: Performed By: #### L 500.2500, L100.0100 ####[facility] [address] [place], [address] EST GFR - AA 85 mL/min Normal >60 [facility] Comment on above: Result Comment: Afri can Cypriot GFR Calc Performed By: #### L 500.2500, L100.0100 ####[facility] [address] [place], [address] GAP 7 Normal 5-15 [facility] Comment on above: Performed By: #### L 500.2500, L100.0100 ####[facility] [address] [place], [address] GFR/1.73 sq M.predicted among non-blacks MDRD (S/P/Bld) [Vol rate/Area] 70 mL/min/{1.73_m2} Normal >60 [facility] Comment on above: Result Comment: Non- GFR Calc Performed By: #### L 500.2500, L100.0100 ####[facility] [address] [place], [address] Glucose [Mass/Vol] 333 mg/dL High 74-106 [facility] Comment on above: Result Comment: Gluc ose result greater than or equal to 200 mg/dLsuggests DIABETES MELLITUS per A.D.A. criteria. Performed By: #### L 500.2500, L100.0100 ####[facility] [address] [place], [address] Potassium [Moles/Vol] 4.0 mmol/L Normal 3.5-5.1 [facility] Comment on above: Performed By: #### L 500.2500, L100.0100 ####[facility] [address] [place], [address] Sodium [Moles/Vol] 132 mmol/L Low 136-145 [facility] Comment on above: Performed By: #### L 500.2500, L100.0100 ####[facility] [address] [place], [address] Urea nitrogen [Mass/Vol] 10 mg/dL Normal 7-18 [facility] Comment on above: Performed By: #### L 500.2500, L100.0100 ####[facility] [address] [place], [address] CBC W/Diff, Automatedon 08-0 8-2024 Absolute Lymph 1.25 X10 3/uL Normal 0.83-4.51 [facility] Comment on above: Performed By: #### L 500.2500, L100.0100 ####[facility] [address] [place], [address] Absolute Neut 8.8 X10 3/uL High 2.0-7.7 [facility] Comment on above: Performed By: #### L 500.2500, L100.0100 ####[facility] [address] [place], [address] Basophils/100 WBC (Bld) 0.4 % Normal 0-1 [facility] Comment on above: Performed By: #### L 500.2500, L100.0100 ####[facility] [address] [place], [address] Eosinophils/100 WBC (Bld) 1.9 % Normal 0-5 [facility] Comment on above: Performed By: #### L 500.2500, L100.0100 ####[facility] [address] [place], [address] Erythrocyte distribution width (RBC) [Ratio] 13.4 % Normal 11.6-14.6 [facility] Comment on above: Performed By: #### L 500.2500, L100.0100 ####[facility] [address] [place], [address] Hematocrit (Bld) [Volume fraction] 37.0 % Normal 37-47 [facility] Comment on above: Performed By: #### L 500.2500, L100.0100 ####[facility] [address] [place], [address] Hemoglobin (Bld) [Mass/Vol] 12.5 g/dL Normal 12.0-15.0 [facility] Comment on above: Performed By: #### L 500.2500, L100.0100 ####[facility] [address] [place], [address] IG% 0.400 Normal 0.0-0.9 [facility] Comment on above: Result Comment: IG% - Immature Granulocytes (promyelocytes, myelocytes andmetamyelocytes) > 1% indicates that a LEFT SHIFT is Present. Performed By: #### L 500.2500, L100.0100 ####[facility] [address] [place], [address] Lymphocytes/100 WBC (Bld) 11.5 % Low 19-41 [facility] Comment on above: Performed By: #### L 500.2500, L100.0100 ####[facility] [address] [place], [address] MCH (RBC) [Entitic mass] 27.6 pg Normal 27.0-32.0 [facility] Comment on above: Performed By: #### L 500.2500, L100.0100 ####[facility] [address] [place], [address] MCHC (RBC) [Mass/Vol] 33.8 g/dL Normal 32-36 [facility] Comment on above: Performed By: #### L 500.2500, L100.0100 ####[facility] [address] [place], [address] MCV (RBC) [Entitic vol] 81.7 fL Normal 81-99 [facility] Comment on above: Performed By: #### L 500.2500, L100.0100 ####[facility] [address] [place], [address] Monocytes/100 WBC (Bld) 5.1 % Normal 0-10 [facility] Comment on above: Performed By: #### L 500.2500, L100.0100 ####[facility] [address] [place], [address] Neutrophils/100 WBC (Bld) 80.7 % High 47-70 [facility] Comment on above: Performed By: #### L 500.2500, L100.0100 ####[facility] [address] [place], [address] Nucleated RBC (Bld) [#/Vol] 0 10*3/uL Normal 0-5 [facility] Comment on above: Performed By: #### L 500.2500, L100.0100 ####[facility] [address] [place], [address] Platelet mean volume (Bld) [Entitic vol] 9.2 fL Normal 6.2-12.0 [facility] Comment on above: Performed By: #### L 500.2500, L100.0100 ####[facility] [address] [place], [address] Platelets (Bld) [#/Vol] 242 10*3/uL Normal 150-450 [facility] Comment on above: Performed By: #### L 500.2500, L100.0100 ####[facility] [address] [place], [address] RBC (Bld) [#/Vol] 4.53 10*6/uL Normal 4.2-5.4 [facility] Comment on above: Performed By: #### L 500.2500, L100.0100 ####[facility] [address] [place], [address] RDW SD 39.7 fl Normal 35.1-43.9 [facility] Comment on above: Performed By: #### L 500.2500, L100.0100 ####[facility] [address] [place], [address] WBC (Bld) [#/Vol] 10.9 10*3/uL Normal 4.4-11.0 [facility] Comment on above: Performed By: #### L 500.2500, L100.0100 ####[facility] [address] [place], [address] Emergency Department Summary on 01-10-2024 Emergency Department Summary Normal [facility] Urinalysis, Completeon 01-09 RBC 0-5 SEEN Normal 0-5 [facility] Comment on above: Order Comment: CLEAN CATCH Performed By: #### L 400.0001 ####[facility] [address] [place], [address] WBC 0-5 SEEN Normal 0-5 [facility] Comment on above: Order Comment: CLEAN CATCH Performed By: #### L 400.0001 ####[facility] [address] [place], [address] BACTERIA 0 SEEN Normal None Seen [facility] Comment on above: Order Comment: CLEAN CATCH Performed By: #### L 400.0001 ####[facility] [address] [place], [address] EPI,SQUAMOUS 0 SEEN Normal 5-10 [facility] Comment on above: Order Comment: CLEAN CATCH Performed By: #### L 400.0001 ####[facility] [address] [place], [address] Mucus Ql (Urine sed) 0 SEEN Normal [facility] Comment on above: Order Comment: CLEAN CATCH Performed By: #### L 400.0001 ####[facility] [address] [place], [address] Basic Metabolic Profile (BMP )on 01-07-2024 BUN Normal 7-18 [facility] Comment on above: Result Comment: Canc elled via OM: Order cancelled - Patient discharged Performed By: #### L 500.2500, L100.0100 ####[facility] [address] [place], [address] BUN/CRE Normal 10-20 [facility] Comment on above: Result Comment: Canc elled via OM: Order cancelled - Patient discharged Performed By: #### L 500.2500, L100.0100 ####[facility] [address] [place], [address] CA,Total Normal 8.5-10.1 [facility] Comment on above: Result Comment: Canc elled via OM: Order cancelled - Patient discharged Performed By: #### L 500.2500, L100.0100 ####[facility] [address] [place], [address] CL Normal 98-107 [facility] Comment on above: Result Comment: Canc elled via OM: Order cancelled - Patient discharged Performed By: #### L 500.2500, L100.0100 ####[facility] [address] [place], [address] CO2 Normal 21.0-32.0 [facility] Comment on above: Result Comment: Canc elled via OM: Order cancelled - Patient discharged Performed By: #### L 500.2500, L100.0100 ####[facility] [address] [place], [address] CREAT,SERUM Normal 0.55-1.02 [facility] Comment on above: Result Comment: Canc elled via OM: Order cancelled - Patient discharged Performed By: #### L 500.2500, L100.0100 ####[facility] [address] [place], [address] EST GFR Normal >60 [facility] Comment on above: Result Comment: Canc elled via OM: Order cancelled - Patient discharged Performed By: #### L 500.2500, L100.0100 ####[facility] [address] [place], [address] EST GFR - AA Normal >60 [facility] Comment on above: Result Comment: Canc elled via OM: Order cancelled - Patient discharged Performed By: #### L 500.2500, L100.0100 ####[facility] [address] [place], [address] GAP Normal 5-15 [facility] Comment on above: Result Comment: Canc elled via OM: Order cancelled - Patient discharged Performed By: #### L 500.2500, L100.0100 ####[facility] [address] [place], [address] GLU Normal 74-106 [facility] Comment on above: Result Comment: Canc elled via OM: Order cancelled - Patient discharged Performed By: #### L 500.2500, L100.0100 ####[facility] [address] [place], [address] Potassium Normal 3.5-5.1 [facility] Comment on above: Result Comment: Canc elled via OM: Order cancelled - Patient discharged Performed By: #### L 500.2500, L100.0100 ####[facility] [address] [place], [address] Basic Metabolic Profile (BMP) Normal 136-145 [facility] Comment on above: Result Comment: Canc elled via OM: Order cancelled - Patient discharged Performed By: #### L 500.2500, L100.0100 ####[facility] [address] [place], [address] CBC W/Diff, Automatedon 08-0 -2023 Absolute Neut Normal 2.0-7.7 [facility] Comment on above: Result Comment: Canc elled via OM: Order cancelled - Patient discharged Performed By: #### L 500.2500, L100.0100 ####[facility] [address] [place], [address] HCT Normal 37-47 [facility] Comment on above: Result Comment: Canc elled via OM: Order cancelled - Patient discharged Performed By: #### L 500.2500, L100.0100 ####[facility] [address] [place], [address] HGB Normal 12.0-15.0 [facility] Comment on above: Result Comment: Canc elled via OM: Order cancelled - Patient discharged Performed By: #### L 500.2500, L100.0100 ####[facility] [address] [place], [address] MCH Normal 27.0-32.0 [facility] Comment on above: Result Comment: Canc elled via OM: Order cancelled - Patient discharged Performed By: #### L 500.2500, L100.0100 ####[facility] [address] [place], [address] MCHC Normal 32-36 [facility] Comment on above: Result Comment: Canc elled via OM: Order cancelled - Patient discharged Performed By: #### L 500.2500, L100.0100 ####[facility] [address] [place], [address] MCV Normal 81-99 [facility] Comment on above: Result Comment: Canc elled via OM: Order cancelled - Patient discharged Performed By: #### L 500.2500, L100.0100 ####[facility] [address] [place], [address] NEUT% Normal 47-70 [facility] Comment on above: Result Comment: Canc elled via OM: Order cancelled - Patient discharged Performed By: #### L 500.2500, L100.0100 ####[facility] [address] [place], [address] PLT Normal 150-450 [facility] Comment on above: Result Comment: Canc elled via OM: Order cancelled - Patient discharged Performed By: #### L 500.2500, L100.0100 ####[facility] [address] [place], [address] RBC Normal 4.2-5.4 [facility] Comment on above: Result Comment: Canc elled via OM: Order cancelled - Patient discharged Performed By: #### L 500.2500, L100.0100 ####[facility] [address] [place], [address] RDW CV Normal 11.6-14.6 [facility] Comment on above: Result Comment: Canc elled via OM: Order cancelled - Patient discharged Performed By: #### L 500.2500, L100.0100 ####[facility] [address] [place], [address] RDW SD Normal 35.1-43.9 [facility] Comment on above: Result Comment: Canc elled via OM: Order cancelled - Patient discharged Performed By: #### L 500.2500, L100.0100 ####[facility] [address] [place], [address] WBC Normal 4.4-11.0 [facility] Comment on above: Result Comment: Canc elled via OM: Order cancelled - Patient discharged Performed By: #### L 500.2500, L100.0100 ####[facility] [address] [place], [address] Basic Metabolic Profile (BMP )on 01-06-2024 BUN Normal 7-18 [facility] Comment on above: Result Comment: Canc elled via OM: Order cancelled - Patient discharged Performed By: #### L 100.0100, L500.2500 ####[facility] [address] [place], [address] BUN/CRE Normal 10-20 [facility] Comment on above: Result Comment: Canc elled via OM: Order cancelled - Patient discharged Performed By: #### L 100.0100, L500.2500 ####[facility] [address] [place], [address] CA,Total Normal 8.5-10.1 [facility] Comment on above: Result Comment: Canc elled via OM: Order cancelled - Patient discharged Performed By: #### L 100.0100, L500.2500 ####[facility] [address] [place], [address] CL Normal 98-107 [facility] Comment on above: Result Comment: Canc elled via OM: Order cancelled - Patient discharged Performed By: #### L 100.0100, L500.2500 ####[facility] [address] [place], [address] CO2 Normal 21.0-32.0 [facility] Comment on above: Result Comment: Canc elled via OM: Order cancelled - Patient discharged Performed By: #### L 100.0100, L500.2500 ####[facility] [address] [place], [address] CREAT,SERUM Normal 0.55-1.02 [facility] Comment on above: Result Comment: Canc elled via OM: Order cancelled - Patient discharged Performed By: #### L 100.0100, L500.2500 ####[facility] [address] [place], [address] EST GFR Normal >60 [facility] Comment on above: Result Comment: Canc elled via OM: Order cancelled - Patient discharged Performed By: #### L 100.0100, L500.2500 ####[facility] [address] [place], [address] EST GFR - AA Normal >60 [facility] Comment on above: Result Comment: Canc elled via OM: Order cancelled - Patient discharged Performed By: #### L 100.0100, L500.2500 ####[facility] [address] [place], [address] GAP Normal 5-15 [facility] Comment on above: Result Comment: Canc elled via OM: Order cancelled - Patient discharged Performed By: #### L 100.0100, L500.2500 ####[facility] [address] [place], [address] GLU Normal 74-106 [facility] Comment on above: Result Comment: Canc elled via OM: Order cancelled - Patient discharged Performed By: #### L 100.0100, L500.2500 ####[facility] [address] [place], [address] Potassium Normal 3.5-5.1 [facility] Comment on above: Result Comment: Canc elled via OM: Order cancelled - Patient discharged Performed By: #### L 100.0100, L500.2500 ####[facility] [address] [place], [address] Basic Metabolic Profile (BMP) Normal 136-145 [facility] Comment on above: Result Comment: Canc elled via OM: Order cancelled - Patient discharged Performed By: #### L 100.0100, L500.2500 ####[facility] [address] [place], [address] CBC W/Diff, Automatedon 08-0 -2023 Absolute Neut Normal 2.0-7.7 [facility] Comment on above: Result Comment: Canc elled via OM: Order cancelled - Patient discharged Performed By: #### L 100.0100, L500.2500 ####[facility] [address] [place], [address] HCT Normal 37-47 [facility] Comment on above: Result Comment: Canc elled via OM: Order cancelled - Patient discharged Performed By: #### L 100.0100, L500.2500 ####[facility] [address] [place], [address] HGB Normal 12.0-15.0 [facility] Comment on above: Result Comment: Canc elled via OM: Order cancelled - Patient discharged Performed By: #### L 100.0100, L500.2500 ####[facility] [address] [place], [address] MCH Normal 27.0-32.0 [facility] Comment on above: Result Comment: Canc elled via OM: Order cancelled - Patient discharged Performed By: #### L 100.0100, L500.2500 ####[facility] [address] [place], [address] MCHC Normal 32-36 [facility] Comment on above: Result Comment: Canc elled via OM: Order cancelled - Patient discharged Performed By: #### L 100.0100, L500.2500 ####[facility] [address] [place], [address] MCV Normal 81-99 [facility] Comment on above: Result Comment: Canc elled via OM: Order cancelled - Patient discharged Performed By: #### L 100.0100, L500.2500 ####[facility] [address] [place], [address] NEUT% Normal 47-70 [facility] Comment on above: Result Comment: Canc elled via OM: Order cancelled - Patient discharged Performed By: #### L 100.0100, L500.2500 ####[facility] [address] [place], [address] PLT Normal 150-450 [facility] Comment on above: Result Comment: Canc elled via OM: Order cancelled - Patient discharged Performed By: #### L 100.0100, L500.2500 ####[facility] [address] [place], [address] RBC Normal 4.2-5.4 [facility] Comment on above: Result Comment: Canc elled via OM: Order cancelled - Patient discharged Performed By: #### L 100.0100, L500.2500 ####[facility] [address] [place], [address] RDW CV Normal 11.6-14.6 [facility] Comment on above: Result Comment: Canc elled via OM: Order cancelled - Patient discharged Performed By: #### L 100.0100, L500.2500 ####[facility] [address] [place], [address] RDW SD Normal 35.1-43.9 [facility] Comment on above: Result Comment: Canc elled via OM: Order cancelled - Patient discharged Performed By: #### L 100.0100, L500.2500 ####[facility] [address] [place], [address] WBC Normal 4.4-11.0 [facility] Comment on above: Result Comment: Canc elled via OM: Order cancelled - Patient discharged Performed By: #### L 100.0100, L500.2500 ####[facility] [address] [place], [address] Basic Metabolic Profile (BMP )on 01-05-2024 BUN Normal 7-18 [facility] Comment on above: Result Comment: Canc elled via OM: Order cancelled - Patient discharged Performed By: #### L 100.0100, L500.2500 ####[facility] [address] [place], [address] BUN/CRE Normal 10-20 [facility] Comment on above: Result Comment: Canc elled via OM: Order cancelled - Patient discharged Performed By: #### L 100.0100, L500.2500 ####[facility] [address] [place], [address] CA,Total Normal 8.5-10.1 [facility] Comment on above: Result Comment: Canc elled via OM: Order cancelled - Patient discharged Performed By: #### L 100.0100, L500.2500 ####[facility] [address] [place], [address] CL Normal 98-107 [facility] Comment on above: Result Comment: Canc elled via OM: Order cancelled - Patient discharged Performed By: #### L 100.0100, L500.2500 ####[facility] [address] [place], [address] CO2 Normal 21.0-32.0 [facility] Comment on above: Result Comment: Canc elled via OM: Order cancelled - Patient discharged Performed By: #### L 100.0100, L500.2500 ####[facility] [address] [place], [address] CREAT,SERUM Normal 0.55-1.02 [facility] Comment on above: Result Comment: Canc elled via OM: Order cancelled - Patient discharged Performed By: #### L 100.0100, L500.2500 ####[facility] [address] [place], [address] EST GFR Normal >60 [facility] Comment on above: Result Comment: Canc elled via OM: Order cancelled - Patient discharged Performed By: #### L 100.0100, L500.2500 ####[facility] [address] [place], [address] EST GFR - AA Normal >60 [facility] Comment on above: Result Comment: Canc elled via OM: Order cancelled - Patient discharged Performed By: #### L 100.0100, L500.2500 ####[facility] [address] [place], [address] GAP Normal 5-15 [facility] Comment on above: Result Comment: Canc elled via OM: Order cancelled - Patient discharged Performed By: #### L 100.0100, L500.2500 ####[facility] [address] [place], [address] GLU Normal 74-106 [facility] Comment on above: Result Comment: Canc elled via OM: Order cancelled - Patient discharged Performed By: #### L 100.0100, L500.2500 ####[facility] [address] [place], [address] Potassium Normal 3.5-5.1 [facility] Comment on above: Result Comment: Canc elled via OM: Order cancelled - Patient discharged Performed By: #### L 100.0100, L500.2500 ####[facility] [address] [place], [address] Basic Metabolic Profile (BMP) Normal 136-145 [facility] Comment on above: Result Comment: Canc elled via OM: Order cancelled - Patient discharged Performed By: #### L 100.0100, L500.2500 ####[facility] [address] [place], [address] CBC W/Diff, Automatedon 08-0 -2023 Absolute Neut Normal 2.0-7.7 [facility] Comment on above: Result Comment: Canc elled via OM: Order cancelled - Patient discharged Performed By: #### L 100.0100, L500.2500 ####[facility] [address] [place], [address] HCT Normal 37-47 [facility] Comment on above: Result Comment: Canc elled via OM: Order cancelled - Patient discharged Performed By: #### L 100.0100, L500.2500 ####[facility] [address] [place], [address] HGB Normal 12.0-15.0 [facility] Comment on above: Result Comment: Canc elled via OM: Order cancelled - Patient discharged Performed By: #### L 100.0100, L500.2500 ####[facility] [address] [place], [address] MCH Normal 27.0-32.0 [facility] Comment on above: Result Comment: Canc elled via OM: Order cancelled - Patient discharged Performed By: #### L 100.0100, L500.2500 ####[facility] [address] [place], [address] MCHC Normal 32-36 [facility] Comment on above: Result Comment: Canc elled via OM: Order cancelled - Patient discharged Performed By: #### L 100.0100, L500.2500 ####[facility] [address] [place], [address] MCV Normal 81-99 [facility] Comment on above: Result Comment: Canc elled via OM: Order cancelled - Patient discharged Performed By: #### L 100.0100, L500.2500 ####[facility] [address] [place], [address] NEUT% Normal 47-70 [facility] Comment on above: Result Comment: Canc elled via OM: Order cancelled - Patient discharged Performed By: #### L 100.0100, L500.2500 ####[facility] [address] [place], [address] PLT Normal 150-450 [facility] Comment on above: Result Comment: Canc elled via OM: Order cancelled - Patient discharged Performed By: #### L 100.0100, L500.2500 ####[facility] [address] [place], [address] RBC Normal 4.2-5.4 [facility] Comment on above: Result Comment: Canc elled via OM: Order cancelled - Patient discharged Performed By: #### L 100.0100, L500.2500 ####[facility] [address] [place], [address] RDW CV Normal 11.6-14.6 [facility] Comment on above: Result Comment: Canc elled via OM: Order cancelled - Patient discharged Performed By: #### L 100.0100, L500.2500 ####[facility] [address] [place], [address] RDW SD Normal 35.1-43.9 [facility] Comment on above: Result Comment: Canc elled via OM: Order cancelled - Patient discharged Performed By: #### L 100.0100, L500.2500 ####[facility] [address] [place], [address] WBC Normal 4.4-11.0 [facility] Comment on above: Result Comment: Canc elled via OM: Order cancelled - Patient discharged Performed By: #### L 100.0100, L500.2500 ####[facility] [address] [place], [address] Basic Metabolic Profile (BMP )on 01-04-2024 BUN Normal 7-18 [facility] Comment on above: Result Comment: Canc elled via OM: Order cancelled - Patient discharged Performed By: #### L 500.2500, L100.0100 ####[facility] [address] [place], [address] BUN/CRE Normal 10-20 [facility] Comment on above: Result Comment: Canc elled via OM: Order cancelled - Patient discharged Performed By: #### L 500.2500, L100.0100 ####[facility] [address] [place], [address] CA,Total Normal 8.5-10.1 [facility] Comment on above: Result Comment: Canc elled via OM: Order cancelled - Patient discharged Performed By: #### L 500.2500, L100.0100 ####[facility] [address] [place], [address] CL Normal 98-107 [facility] Comment on above: Result Comment: Canc elled via OM: Order cancelled - Patient discharged Performed By: #### L 500.2500, L100.0100 ####[facility] [address] [place], [address] CO2 Normal 21.0-32.0 [facility] Comment on above: Result Comment: Canc elled via OM: Order cancelled - Patient discharged Performed By: #### L 500.2500, L100.0100 ####[facility] [address] [place], [address] CREAT,SERUM Normal 0.55-1.02 [facility] Comment on above: Result Comment: Canc elled via OM: Order cancelled - Patient discharged Performed By: #### L 500.2500, L100.0100 ####[facility] [address] [place], [address] EST GFR Normal >60 [facility] Comment on above: Result Comment: Canc elled via OM: Order cancelled - Patient discharged Performed By: #### L 500.2500, L100.0100 ####[facility] [address] [place], [address] EST GFR - AA Normal >60 [facility] Comment on above: Result Comment: Canc elled via OM: Order cancelled - Patient discharged Performed By: #### L 500.2500, L100.0100 ####[facility] [address] [place], [address] GAP Normal 5-15 [facility] Comment on above: Result Comment: Canc elled via OM: Order cancelled - Patient discharged Performed By: #### L 500.2500, L100.0100 ####[facility] [address] [place], [address] GLU Normal 74-106 [facility] Comment on above: Result Comment: Canc elled via OM: Order cancelled - Patient discharged Performed By: #### L 500.2500, L100.0100 ####[facility] [address] [place], [address] Potassium Normal 3.5-5.1 [facility] Comment on above: Result Comment: Canc elled via OM: Order cancelled - Patient discharged Performed By: #### L 500.2500, L100.0100 ####[facility] [address] [place], [address] Basic Metabolic Profile (BMP) Normal 136-145 [facility] Comment on above: Result Comment: Canc elled via OM: Order cancelled - Patient discharged Performed By: #### L 500.2500, L100.0100 ####[facility] [address] [place], [address] CBC W/Diff, Automatedon 08-0 2-2023 Absolute Neut Normal 2.0-7.7 [facility] Comment on above: Result Comment: Canc elled via OM: Order cancelled - Patient discharged Performed By: #### L 500.2500, L100.0100 ####[facility] [address] [place], [address] HCT Normal 37-47 [facility] Comment on above: Result Comment: Canc elled via OM: Order cancelled - Patient discharged Performed By: #### L 500.2500, L100.0100 ####[facility] [address] [place], [address] HGB Normal 12.0-15.0 [facility] Comment on above: Result Comment: Canc elled via OM: Order cancelled - Patient discharged Performed By: #### L 500.2500, L100.0100 ####[facility] [address] [place], [address] MCH Normal 27.0-32.0 [facility] Comment on above: Result Comment: Canc elled via OM: Order cancelled - Patient discharged Performed By: #### L 500.2500, L100.0100 ####[facility] [address] [place], [address] MCHC Normal 32-36 [facility] Comment on above: Result Comment: Canc elled via OM: Order cancelled - Patient discharged Performed By: #### L 500.2500, L100.0100 ####[facility] [address] [place], [address] MCV Normal 81-99 [facility] Comment on above: Result Comment: Canc elled via OM: Order cancelled - Patient discharged Performed By: #### L 500.2500, L100.0100 ####[facility] [address] [place], [address] NEUT% Normal 47-70 [facility] Comment on above: Result Comment: Canc elled via OM: Order cancelled - Patient discharged Performed By: #### L 500.2500, L100.0100 ####[facility] [address] [place], [address] PLT Normal 150-450 [facility] Comment on above: Result Comment: Canc elled via OM: Order cancelled - Patient discharged Performed By: #### L 500.2500, L100.0100 ####[facility] [address] [place], [address] RBC Normal 4.2-5.4 [facility] Comment on above: Result Comment: Canc elled via OM: Order cancelled - Patient discharged Performed By: #### L 500.2500, L100.0100 ####[facility] [address] [place], [address] RDW CV Normal 11.6-14.6 [facility] Comment on above: Result Comment: Canc elled via OM: Order cancelled - Patient discharged Performed By: #### L 500.2500, L100.0100 ####[facility] [address] [place], [address] RDW SD Normal 35.1-43.9 [facility] Comment on above: Result Comment: Canc elled via OM: Order cancelled - Patient discharged Performed By: #### L 500.2500, L100.0100 ####[facility] [address] [place], [address] WBC Normal 4.4-11.0 [facility] Comment on above: Result Comment: Canc elled via OM: Order cancelled - Patient discharged Performed By: #### L 500.2500, L100.0100 ####[facility] [address] [place], [address] Basic Metabolic Profile (BMP )on 01-03-2024 BUN Normal 7-18 [facility] Comment on above: Result Comment: Canc elled via OM: Order cancelled - Patient discharged Performed By: #### L 500.2500, L100.0100 ####[facility] [address] [place], [address] BUN/CRE Normal 10-20 [facility] Comment on above: Result Comment: Canc elled via OM: Order cancelled - Patient discharged Performed By: #### L 500.2500, L100.0100 ####[facility] [address] [place], [address] CA,Total Normal 8.5-10.1 [facility] Comment on above: Result Comment: Canc elled via OM: Order cancelled - Patient discharged Performed By: #### L 500.2500, L100.0100 ####[facility] [address] [place], [address] CL Normal 98-107 [facility] Comment on above: Result Comment: Canc elled via OM: Order cancelled - Patient discharged Performed By: #### L 500.2500, L100.0100 ####[facility] [address] [place], [address] CO2 Normal 21.0-32.0 [facility] Comment on above: Result Comment: Canc elled via OM: Order cancelled - Patient discharged Performed By: #### L 500.2500, L100.0100 ####[facility] [address] [place], [address] CREAT,SERUM Normal 0.55-1.02 [facility] Comment on above: Result Comment: Canc elled via OM: Order cancelled - Patient discharged Performed By: #### L 500.2500, L100.0100 ####[facility] [address] [place], [address] EST GFR Normal >60 [facility] Comment on above: Result Comment: Canc elled via OM: Order cancelled - Patient discharged Performed By: #### L 500.2500, L100.0100 ####[facility] [address] [place], [address] EST GFR - AA Normal >60 [facility] Comment on above: Result Comment: Canc elled via OM: Order cancelled - Patient discharged Performed By: #### L 500.2500, L100.0100 ####[facility] [address] [place], [address] GAP Normal 5-15 [facility] Comment on above: Result Comment: Canc elled via OM: Order cancelled - Patient discharged Performed By: #### L 500.2500, L100.0100 ####[facility] [address] [place], [address] GLU Normal 74-106 [facility] Comment on above: Result Comment: Canc elled via OM: Order cancelled - Patient discharged Performed By: #### L 500.2500, L100.0100 ####[facility] [address] [place], [address] Potassium Normal 3.5-5.1 [facility] Comment on above: Result Comment: Canc elled via OM: Order cancelled - Patient discharged Performed By: #### L 500.2500, L100.0100 ####[facility] [address] [place], [address] Basic Metabolic Profile (BMP) Normal 136-145 [facility] Comment on above: Result Comment: Canc elled via OM: Order cancelled - Patient discharged Performed By: #### L 500.2500, L100.0100 ####[facility] [address] [place], [address] CBC W/Diff, Automatedon 08-0 -2023 Absolute Neut Normal 2.0-7.7 [facility] Comment on above: Result Comment: Canc elled via OM: Order cancelled - Patient discharged Performed By: #### L 500.2500, L100.0100 ####[facility] [address] [place], [address] HCT Normal 37-47 [facility] Comment on above: Result Comment: Canc elled via OM: Order cancelled - Patient discharged Performed By: #### L 500.2500, L100.0100 ####[facility] [address] [place], [address] HGB Normal 12.0-15.0 [facility] Comment on above: Result Comment: Canc elled via OM: Order cancelled - Patient discharged Performed By: #### L 500.2500, L100.0100 ####[facility] [address] [place], [address] MCH Normal 27.0-32.0 [facility] Comment on above: Result Comment: Canc elled via OM: Order cancelled - Patient discharged Performed By: #### L 500.2500, L100.0100 ####[facility] [address] [place], [address] MCHC Normal 32-36 [facility] Comment on above: Result Comment: Canc elled via OM: Order cancelled - Patient discharged Performed By: #### L 500.2500, L100.0100 ####[facility] [address] [place], [address] MCV Normal 81-99 [facility] Comment on above: Result Comment: Canc elled via OM: Order cancelled - Patient discharged Performed By: #### L 500.2500, L100.0100 ####[facility] [address] [place], [address] NEUT% Normal 47-70 [facility] Comment on above: Result Comment: Canc elled via OM: Order cancelled - Patient discharged Performed By: #### L 500.2500, L100.0100 ####[facility] [address] [place], [address] PLT Normal 150-450 [facility] Comment on above: Result Comment: Canc elled via OM: Order cancelled - Patient discharged Performed By: #### L 500.2500, L100.0100 ####[facility] [address] [place], [address] RBC Normal 4.2-5.4 [facility] Comment on above: Result Comment: Canc elled via OM: Order cancelled - Patient discharged Performed By: #### L 500.2500, L100.0100 ####[facility] [address] [place], [address] RDW CV Normal 11.6-14.6 [facility] Comment on above: Result Comment: Canc elled via OM: Order cancelled - Patient discharged Performed By: #### L 500.2500, L100.0100 ####[facility] [address] [place], [address] RDW SD Normal 35.1-43.9 [facility] Comment on above: Result Comment: Canc elled via OM: Order cancelled - Patient discharged Performed By: #### L 500.2500, L100.0100 ####[facility] [address] [place], [address] WBC Normal 4.4-11.0 [facility] Comment on above: Result Comment: Canc elled via OM: Order cancelled - Patient discharged Performed By: #### L 500.2500, L100.0100 ####[facility] [address] [place], [address] Basic Metabolic Profile (BMP )on 01-02-2024 BUN Normal 7-18 [facility] Comment on above: Result Comment: Canc elled via OM: Order cancelled - Patient discharged Performed By: #### L 100.0100, L500.2500 ####[facility] [address] [place], [address] BUN/CRE Normal 10-20 [facility] Comment on above: Result Comment: Canc elled via OM: Order cancelled - Patient discharged Performed By: #### L 100.0100, L500.2500 ####[facility] [address] [place], [address] CA,Total Normal 8.5-10.1 [facility] Comment on above: Result Comment: Canc elled via OM: Order cancelled - Patient discharged Performed By: #### L 100.0100, L500.2500 ####[facility] [address] [place], [address] CL Normal 98-107 [facility] Comment on above: Result Comment: Canc elled via OM: Order cancelled - Patient discharged Performed By: #### L 100.0100, L500.2500 ####[facility] [address] [place], [address] CO2 Normal 21.0-32.0 [facility] Comment on above: Result Comment: Canc elled via OM: Order cancelled - Patient discharged Performed By: #### L 100.0100, L500.2500 ####[facility] [address] [place], [address] CREAT,SERUM Normal 0.55-1.02 [facility] Comment on above: Result Comment: Canc elled via OM: Order cancelled - Patient discharged Performed By: #### L 100.0100, L500.2500 ####[facility] [address] [place], [address] EST GFR Normal >60 [facility] Comment on above: Result Comment: Canc elled via OM: Order cancelled - Patient discharged Performed By: #### L 100.0100, L500.2500 ####[facility] [address] [place], [address] EST GFR - AA Normal >60 [facility] Comment on above: Result Comment: Canc elled via OM: Order cancelled - Patient discharged Performed By: #### L 100.0100, L500.2500 ####[facility] [address] [place], [address] GAP Normal 5-15 [facility] Comment on above: Result Comment: Canc elled via OM: Order cancelled - Patient discharged Performed By: #### L 100.0100, L500.2500 ####[facility] [address] [place], [address] GLU Normal 74-106 [facility] Comment on above: Result Comment: Canc elled via OM: Order cancelled - Patient discharged Performed By: #### L 100.0100, L500.2500 ####[facility] [address] [place], [address] Potassium Normal 3.5-5.1 [facility] Comment on above: Result Comment: Canc elled via OM: Order cancelled - Patient discharged Performed By: #### L 100.0100, L500.2500 ####[facility] [address] [place], [address] Basic Metabolic Profile (BMP) Normal 136-145 [facility] Comment on above: Result Comment: Canc elled via OM: Order cancelled - Patient discharged Performed By: #### L 100.0100, L500.2500 ####[facility] [address] [place], [address] CBC W/Diff, Automatedon 07-3 Absolute Neut Normal 2.0-7.7 [facility] Comment on above: Result Comment: Canc elled via OM: Order cancelled - Patient discharged Performed By: #### L 100.0100, L500.2500 ####[facility] [address] [place], [address] HCT Normal 37-47 [facility] Comment on above: Result Comment: Canc elled via OM: Order cancelled - Patient discharged Performed By: #### L 100.0100, L500.2500 ####[facility] [address] [place], [address] HGB Normal 12.0-15.0 [facility] Comment on above: Result Comment: Canc elled via OM: Order cancelled - Patient discharged Performed By: #### L 100.0100, L500.2500 ####[facility] [address] [place], [address] MCH Normal 27.0-32.0 [facility] Comment on above: Result Comment: Canc elled via OM: Order cancelled - Patient discharged Performed By: #### L 100.0100, L500.2500 ####[facility] [address] [place], [address] MCHC Normal 32-36 [facility] Comment on above: Result Comment: Canc elled via OM: Order cancelled - Patient discharged Performed By: #### L 100.0100, L500.2500 ####[facility] [address] [place], [address] MCV Normal 81-99 [facility] Comment on above: Result Comment: Canc elled via OM: Order cancelled - Patient discharged Performed By: #### L 100.0100, L500.2500 ####[facility] [address] [place], [address] NEUT% Normal 47-70 [facility] Comment on above: Result Comment: Canc elled via OM: Order cancelled - Patient discharged Performed By: #### L 100.0100, L500.2500 ####[facility] [address] [place], [address] PLT Normal 150-450 [facility] Comment on above: Result Comment: Canc elled via OM: Order cancelled - Patient discharged Performed By: #### L 100.0100, L500.2500 ####[facility] [address] [place], [address] RBC Normal 4.2-5.4 [facility] Comment on above: Result Comment: Canc elled via OM: Order cancelled - Patient discharged Performed By: #### L 100.0100, L500.2500 ####[facility] [address] [place], [address] RDW CV Normal 11.6-14.6 [facility] Comment on above: Result Comment: Canc elled via OM: Order cancelled - Patient discharged Performed By: #### L 100.0100, L500.2500 ####[facility] [address] [place], [address] RDW SD Normal 35.1-43.9 [facility] Comment on above: Result Comment: Canc elled via OM: Order cancelled - Patient discharged Performed By: #### L 100.0100, L500.2500 ####[facility] [address] [place], [address] WBC Normal 4.4-11.0 [facility] Comment on above: Result Comment: Canc elled via OM: Order cancelled - Patient discharged Performed By: #### L 100.0100, L500.2500 ####[facility] [address] [place], [address] Basic Metabolic Profile (BMP )on 01-01-2024 BUN/CRE 16.2 RATIO Normal 10-20 [facility] Comment on above: Performed By: #### L 100.0100, L500.2500 ####[facility] [address] [place], [address] CA,Total 9.4 mg/dL Normal 8.5-10.1 [facility] Comment on above: Performed By: #### L 100.0100, L500.2500 ####[facility] [address] [place], [address] Chloride [Moles/Vol] 109 mmol/L High 98-107 [facility] Comment on above: Performed By: #### L 100.0100, L500.2500 ####[facility] [address] [place], [address] CO2 [Moles/Vol] 26.0 mmol/L Normal 21.0-32.0 [facility] Comment on above: Performed By: #### L 100.0100, L500.2500 ####[facility] [address] [place], [address] Creatinine [Mass/Vol] 1.05 mg/dL High 0.55-1.02 [facility] Comment on above: Result Comment: The validity of the calculated GFR GFRAA in patients over70 years has not been determined. Clinical correlation isessential. Performed By: #### L 100.0100, L500.2500 ####[facility] [address] [place], [address] ECRCL 69.62 ml/min Normal [facility] Comment on above: Performed By: #### L 100.0100, L500.2500 ####[facility] [address] [place], [address] EST GFR - AA 71 mL/min Normal >60 [facility] Comment on above: Result Comment: Afri can Cypriot GFR Calc Performed By: #### L 100.0100, L500.2500 ####[facility] [address] [place], [address] GAP 5 Normal 5-15 [facility] Comment on above: Performed By: #### L 100.0100, L500.2500 ####[facility] [address] [place], [address] GFR/1.73 sq M.predicted among non-blacks MDRD (S/P/Bld) [Vol rate/Area] 58 mL/min/{1.73_m2} Low >60 [facility] Comment on above: Result Comment: Non- GFR Calc Performed By: #### L 100.0100, L500.2500 ####[facility] [address] [place], [address] Glucose [Mass/Vol] 144 mg/dL High 74-106 [facility] Comment on above: Result Comment: Fast ing Glucose result greater than or equal to 126 mg/dLsuggests DIABETES MELLITUS per A.D.A. criteria. Performed By: #### L 100.0100, L500.2500 ####[facility] [address] [place], [address] Potassium [Moles/Vol] 3.9 mmol/L Normal 3.5-5.1 [facility] Comment on above: Performed By: #### L 100.0100, L500.2500 ####[facility] [address] [place], [address] Sodium [Moles/Vol] 140 mmol/L Normal 136-145 [facility] Comment on above: Performed By: #### L 100.0100, L500.2500 ####[facility] [address] [place], [address] Urea nitrogen [Mass/Vol] 17 mg/dL Normal 7-18 [facility] Comment on above: Performed By: #### L 100.0100, L500.2500 ####[facility] [address] [place], [address] Bedside Glucoseon 01-01-2024 FINGERSTICK GLU 201 mg/dL High [address] [place] [address] Comment on above: Result Comment: TALIA CHAMBERS OF PATIENT CARE PER NURSING PROTOCOL Performed By: #### L 501.080 ####[facility] [address] [place], [address] FINGERSTICK GLU 170 mg/dL High -106 [facility] Comment on above: Result Comment: TALIA GEMENT OF PATIENT CARE PER NURSING PROTOCOL Performed By: #### L 501.080 ####[facility] [address] [place], [address] FINGERSTICK GLU 97 mg/dL Normal 74-106 [facility] Comment on above: Result Comment: TALIA GEMENT OF PATIENT CARE PER NURSING PROTOCOL Performed By: #### L 501.080 ####[facility] [address] [place], [address] CBC W/Diff, Automatedon 07-3 0-4 Absolute Lymph 1.39 X10 3/uL Normal 0.83-4.51 [facility] Comment on above: Performed By: #### L 100.0100, L500.2500 ####[facility] [address] [place], [address] Absolute Neut 3.6 X10 3/uL Normal 2.0-7.7 [facility] Comment on above: Performed By: #### L 100.0100, L500.2500 ####[facility] [address] [place], [address] Basophils/100 WBC (Bld) 0.9 % Normal 0-1 [facility] Comment on above: Performed By: #### L 100.0100, L500.2500 ####[facility] [address] [place], [address] Eosinophils/100 WBC (Bld) 3.2 % Normal 0-5 [facility] Comment on above: Performed By: #### L 100.0100, L500.2500 ####[facility] [address] [place], [address] Erythrocyte distribution width (RBC) [Ratio] 13.2 % Normal 11.6-14.6 [facility] Comment on above: Performed By: #### L 100.0100, L500.2500 ####[facility] [address] [place], [address] Hematocrit (Bld) [Volume fraction] 33.5 % Low 37-47 [facility] Comment on above: Performed By: #### L 100.0100, L500.2500 ####[facility] [address] [place], [address] Hemoglobin (Bld) [Mass/Vol] 10.8 g/dL Low 12.0-15.0 [facility] Comment on above: Performed By: #### L 100.0100, L500.2500 ####[facility] [address] [place], [address] IG% 0.300 Normal 0.0-0.9 [facility] Comment on above: Result Comment: IG% - Immature Granulocytes (promyelocytes, myelocytes andmetamyelocytes) > 1% indicates that a LEFT SHIFT is Present. Performed By: #### L 100.0100, L500.2500 ####[facility] [address] [place], [address] Lymphocytes/100 WBC (Bld) 23.7 % Normal 19-41 [facility] Comment on above: Performed By: #### L 100.0100, L500.2500 ####[facility] [address] [place], [address] MCH (RBC) [Entitic mass] 27.1 pg Normal 27.0-32.0 [facility] Comment on above: Performed By: #### L 100.0100, L500.2500 ####[facility] [address] [place], [address] MCHC (RBC) [Mass/Vol] 32.2 g/dL Normal 32-36 [facility] Comment on above: Performed By: #### L 100.0100, L500.2500 ####[facility] [address] [place], [address] MCV (RBC) [Entitic vol] 84.0 fL Normal 81-99 [facility] Comment on above: Performed By: #### L 100.0100, L500.2500 ####[facility] [address] [place], [address] Monocytes/100 WBC (Bld) 9.9 % Normal 0-10 [facility] Comment on above: Performed By: #### L 100.0100, L500.2500 ####[facility] [address] [place], [address] Neutrophils/100 WBC (Bld) 62.0 % Normal 47-70 [facility] Comment on above: Performed By: #### L 100.0100, L500.2500 ####[facility] [address] [place], [address] Nucleated RBC (Bld) [#/Vol] 0 10*3/uL Normal 0-5 [facility] Comment on above: Performed By: #### L 100.0100, L500.2500 ####[facility] [address] [place], [address] Platelet mean volume (Bld) [Entitic vol] 9.3 fL Normal 6.2-12.0 [facility] Comment on above: Performed By: #### L 100.0100, L500.2500 ####[facility] [address] [place], [address] Platelets (Bld) [#/Vol] 196 10*3/uL Normal 150-450 [facility] Comment on above: Performed By: #### L 100.0100, L500.2500 ####[facility] [address] [place], [address] RBC (Bld) [#/Vol] 3.99 10*6/uL Low 4.2-5.4 [facility] Comment on above: Performed By: #### L 100.0100, L500.2500 ####[facility] [address] [place], [address] RDW SD 40.2 fl Normal 35.1-43.9 [facility] Comment on above: Performed By: #### L 100.0100, L500.2500 ####[facility] [address] [place], [address] WBC (Bld) [#/Vol] 5.9 10*3/uL Normal 4.4-11.0 [facility] Comment on above: Performed By: #### L 100.0100, L500.2500 ####[facility] [address] [place], [address] Discharge Instructionon 12-04 Discharge Instruction Normal [facility] Basic Metabolic Profile (BMP )on 12-31-2023 BUN/CRE 14.0 RATIO Normal 10-20 [facility] Comment on above: Performed By: #### L 100.0100, L500.2500 ####[facility] [address] [place], [address] CA,Total 8.4 mg/dL Low 8.5-10.1 [facility] Comment on above: Performed By: #### L 100.0100, L500.2500 ####[facility] [address] [place], [address] Chloride [Moles/Vol] 106 mmol/L Normal 98-107 [facility] Comment on above: Performed By: #### L 100.0100, L500.2500 ####[facility] [address] [place], [address] CO2 [Moles/Vol] 25.0 mmol/L Normal 21.0-32.0 [facility] Comment on above: Performed By: #### L 100.0100, L500.2500 ####[facility] [address] [place], [address] Creatinine [Mass/Vol] 1.36 mg/dL High 0.55-1.02 [facility] Comment on above: Result Comment: The validity of the calculated GFR GFRAA in patients over70 years has not been determined. Clinical correlation isessential. Performed By: #### L 100.0100, L500.2500 ####[facility] [address] [place], [address] ECRCL 53.66 ml/min Normal [facility] Comment on above: Performed By: #### L 100.0100, L500.2500 ####[facility] [address] [place], [address] EST GFR - AA 52 mL/min Low >60 [facility] Comment on above: Result Comment: Afri can Cypriot GFR Calc Performed By: #### L 100.0100, L500.2500 ####[facility] [address] [place], [address] GAP 5 Normal 5-15 [facility] Comment on above: Performed By: #### L 100.0100, L500.2500 ####[facility] [address] [place], [address] GFR/1.73 sq M.predicted among non-blacks MDRD (S/P/Bld) [Vol rate/Area] 43 mL/min/{1.73_m2} Low >60 [facility] Comment on above: Result Comment: Non- GFR Calc Performed By: #### L 100.0100, L500.2500 ####[facility] [address] [place], [address] Glucose [Mass/Vol] 138 mg/dL High 74-106 [facility] Comment on above: Result Comment: Fast ing Glucose result greater than or equal to 126 mg/dLsuggests DIABETES MELLITUS per A.D.A. criteria. Performed By: #### L 100.0100, L500.2500 ####[facility] [address] [place], [address] Potassium [Moles/Vol] 3.6 mmol/L Normal 3.5-5.1 [facility] Comment on above: Performed By: #### L 100.0100, L500.2500 ####[facility] [address] [place], [address] Sodium [Moles/Vol] 136 mmol/L Normal 136-145 [facility] Comment on above: Performed By: #### L 100.0100, L500.2500 ####[facility] [address] [place], [address] Urea nitrogen [Mass/Vol] 19 mg/dL High 7-18 [facility] Comment on above: Performed By: #### L 100.0100, L500.2500 ####[facility] [address] [place], [address] Bedside Glucoseon 12-31-2023 FINGERSTICK GLU 155 mg/dL High 74-106 [facility] Comment on above: Result Comment: TALIA GEMENT OF PATIENT CARE PER NURSING PROTOCOL Performed By: #### L 501.080 ####[facility] [address] [place], [address] FINGERSTICK GLU 153 mg/dL High 74-106 [facility] Comment on above: Result Comment: TALIA GEMENT OF PATIENT CARE PER NURSING PROTOCOL Performed By: #### L 501.080 ####[facility] [address] [place], [address] FINGERSTICK GLU 141 mg/dL High 74-106 [facility] Comment on above: Result Comment: TLAIA GEMENT OF PATIENT CARE PER NURSING PROTOCOL Performed By: #### L 501.080 ####[facility] [address] [place], [address] CBC W/Diff, Automatedon - Absolute Lymph 1.79 X10 3/uL Normal 0.83-4.51 [facility] Comment on above: Performed By: #### L 100.0100, L500.2500 ####[facility] [address] [place], [address] Absolute Neut 4.2 X10 3/uL Normal 2.0-7.7 [facility] Comment on above: Performed By: #### L 100.0100, L500.2500 ####[facility] [address] [place], [address] Basophils/100 WBC (Bld) 0.9 % Normal 0-1 [facility] Comment on above: Performed By: #### L 100.0100, L500.2500 ####[facility] [address] [place], [address] Eosinophils/100 WBC (Bld) 3.2 % Normal 0-5 [facility] Comment on above: Performed By: #### L 100.0100, L500.2500 ####[facility] [address] [place], [address] Erythrocyte distribution width (RBC) [Ratio] 13.4 % Normal 11.6-14.6 [facility] Comment on above: Performed By: #### L 100.0100, L500.2500 ####[facility] [address] [place], [address] Hematocrit (Bld) [Volume fraction] 33.5 % Low 37-47 [facility] Comment on above: Performed By: #### L 100.0100, L500.2500 ####[facility] [address] [place], [address] Hemoglobin (Bld) [Mass/Vol] 10.8 g/dL Low 12.0-15.0 [facility] Comment on above: Performed By: #### L 100.0100, L500.2500 ####[facility] [address] [place], [address] IG% 0.100 Normal 0.0-0.9 [facility] Comment on above: Result Comment: IG% - Immature Granulocytes (promyelocytes, myelocytes andmetamyelocytes) > 1% indicates that a LEFT SHIFT is Present. Performed By: #### L 100.0100, L500.2500 ####[facility] [address] [place], [address] Lymphocytes/100 WBC (Bld) 26.0 % Normal 19-41 [facility] Comment on above: Performed By: #### L 100.0100, L500.2500 ####[facility] [address] [place], [address] MCH (RBC) [Entitic mass] 26.8 pg Low 27.0-32.0 [facility] Comment on above: Performed By: #### L 100.0100, L500.2500 ####[facility] [address] [place], [address] MCHC (RBC) [Mass/Vol] 32.2 g/dL Normal 32-36 [facility] Comment on above: Performed By: #### L 100.0100, L500.2500 ####[facility] [address] [place], [address] MCV (RBC) [Entitic vol] 83.1 fL Normal 81-99 [facility] Comment on above: Performed By: #### L 100.0100, L500.2500 ####[facility] [address] [place], [address] Monocytes/100 WBC (Bld) 8.9 % Normal 0-10 [facility] Comment on above: Performed By: #### L 100.0100, L500.2500 ####[facility] [address] [place], [address] Neutrophils/100 WBC (Bld) 60.9 % Normal 47-70 [facility] Comment on above: Performed By: #### L 100.0100, L500.2500 ####[facility] [address] [place], [address] Nucleated RBC (Bld) [#/Vol] 0 10*3/uL Normal 0-5 [facility] Comment on above: Performed By: #### L 100.0100, L500.2500 ####[facility] [address] [place], [address] Platelet mean volume (Bld) [Entitic vol] 9.6 fL Normal 6.2-12.0 [facility] Comment on above: Performed By: #### L 100.0100, L500.2500 ####[facility] [address] [place], [address] Platelets (Bld) [#/Vol] 231 10*3/uL Normal 150-450 [facility] Comment on above: Performed By: #### L 100.0100, L500.2500 ####[facility] [address] [place], [address] RBC (Bld) [#/Vol] 4.03 10*6/uL Low 4.2-5.4 [facility] Comment on above: Performed By: #### L 100.0100, L500.2500 ####[facility] [address] [place], [address] RDW SD 40.5 fl Normal 35.1-43.9 [facility] Comment on above: Performed By: #### L 100.0100, L500.2500 ####[facility] [address] [place], [address] WBC (Bld) [#/Vol] 6.9 10*3/uL Normal 4.4-11.0 [facility] Comment on above: Performed By: #### L 100.0100, L500.2500 ####[facility] [address] [place], [address] Bedside Glucoseon 12-30-2023 FINGERSTICK GLU 173 mg/dL High [facility]106 [facility] Comment on above: Result Comment: TALIA GEMENT OF PATIENT CARE PER NURSING PROTOCOL Performed By: #### L 501.080 ####[facility] [address] [place], [address] FINGERSTICK GLU 168 mg/dL High [facility]106 [facility] Comment on above: Result Comment: TALIA GEMENT OF PATIENT CARE PER NURSING PROTOCOL Performed By: #### L 501.080 ####[facility] [address] [place], [address] FINGERSTICK GLU 193 mg/dL High [address] [place] [address] Comment on above: Result Comment: TALIA GEMENT OF PATIENT CARE PER NURSING PROTOCOL Performed By: #### L 501.080 ####[facility] [address] [place], [address] FINGERSTICK GLU 176 mg/dL [facility]106 [facility] Comment on above: Result Comment: TALIA GEMENT OF PATIENT CARE PER NURSING PROTOCOL Performed By: #### L 501.080 ####[facility] [address] [place], [address] FINGERSTICK GLU 198 mg/dL High [address] [place] [address] Comment on above: Result Comment: TALIA GEMENT OF PATIENT CARE PER NURSING PROTOCOL Performed By: #### L 501.080 ####[facility] [address] [place], [address] CBC W/Diff, Automatedon -2 Absolute Lymph 1.54 X10 3/uL Normal 0.83-4.51 [facility] Comment on above: Performed By: #### L 100.0100, L500.4050 ####[facility] [address] [place], [address] Absolute Neut 5.1 X10 3/uL Normal 2.0-7.7 [facility] Comment on above: Performed By: #### L 100.0100, L500.4050 ####[facility] [address] [place], [address] Basophils/100 WBC (Bld) 0.8 % Normal 0-1 [facility] Comment on above: Performed By: #### L 100.0100, L500.4050 ####[facility] [address] [place], [address] Eosinophils/100 WBC (Bld) 3.1 % Normal 0-5 [facility] Comment on above: Performed By: #### L 100.0100, L500.4050 ####[facility] [address] [place], [address] Erythrocyte distribution width (RBC) [Ratio] 13.3 % Normal 11.6-14.6 [facility] Comment on above: Performed By: #### L 100.0100, L500.4050 ####[facility] [address] [place], [address] Hematocrit (Bld) [Volume fraction] 36.3 % Low 37-47 [facility] Comment on above: Performed By: #### L 100.0100, L500.4050 ####[facility] [address] [place], [address] Hemoglobin (Bld) [Mass/Vol] 11.6 g/dL Low 12.0-15.0 [facility] Comment on above: Performed By: #### L 100.0100, L500.4050 ####[facility] [address] [place], [address] IG% 0.300 Normal 0.0-0.9 [facility] Comment on above: Result Comment: IG% - Immature Granulocytes (promyelocytes, myelocytes andmetamyelocytes) > 1% indicates that a LEFT SHIFT is Present. Performed By: #### L 100.0100, L500.4050 ####[facility] [address] [place], [address] Lymphocytes/100 WBC (Bld) 20.2 % Normal 19-41 [facility] Comment on above: Performed By: #### L 100.0100, L500.4050 ####[facility] [address] [place], [address] MCH (RBC) [Entitic mass] 27.2 pg Normal 27.0-32.0 [facility] Comment on above: Performed By: #### L 100.0100, L500.4050 ####[facility] [address] [place], [address] MCHC (RBC) [Mass/Vol] 32.0 g/dL Normal 32-36 [facility] Comment on above: Performed By: #### L 100.0100, L500.4050 ####[facility] [address] [place], [address] MCV (RBC) [Entitic vol] 85.0 fL Normal 81-99 [facility] Comment on above: Performed By: #### L 100.0100, L500.4050 ####[facility] [address] [place], [address] Monocytes/100 WBC (Bld) 9.2 % Normal 0-10 [facility] Comment on above: Performed By: #### L 100.0100, L500.4050 ####[facility] [address] [place], [address] Neutrophils/100 WBC (Bld) 66.4 % Normal 47-70 [facility] Comment on above: Performed By: #### L 100.0100, L500.4050 ####[facility] [address] [place], [address] Nucleated RBC (Bld) [#/Vol] 0 10*3/uL Normal 0-5 [facility] Comment on above: Performed By: #### L 100.0100, L500.4050 ####[facility] [address] [place], [address] Platelet mean volume (Bld) [Entitic vol] 9.1 fL Normal 6.2-12.0 [facility] Comment on above: Performed By: #### L 100.0100, L500.4050 ####[facility] [address] [place], [address] Platelets (Bld) [#/Vol] 213 10*3/uL Normal 150-450 [facility] Comment on above: Performed By: #### L 100.0100, L500.4050 ####[facility] [address] [place], [address] RBC (Bld) [#/Vol] 4.27 10*6/uL Normal 4.2-5.4 [facility] Comment on above: Performed By: #### L 100.0100, L500.4050 ####[facility] [address] [place], [address] RDW SD 41.4 fl Normal 35.1-43.9 [facility] Comment on above: Performed By: #### L 100.0100, L500.4050 ####[facility] [address] [place], [address] WBC (Bld) [#/Vol] 7.6 10*3/uL Normal 4.4-11.0 [facility] Comment on above: Performed By: #### L 100.0100, L500.4050 ####[facility] [address] [place], [address] Comprehensive Metabolic Prof ilon 12-30-2023 Albumin [Mass/Vol] 2.4 g/dL Low 3.2-5.0 [facility] Comment on above: Performed By: #### L 100.0100, L500.4050 ####[facility] [address] [place], [address] Albumin/Globulin [Mass ratio] 0.6 {ratio} Low 0.9-2.4 [facility] Comment on above: Performed By: #### L 100.0100, L500.4050 ####[facility] [address] [place], [address] ALK P 114 U/L Normal 45-117 [facility] Comment on above: Performed By: #### L 100.0100, L500.4050 ####[facility] [address] [place], [address] ALT [Catalytic activity/Vol] 18 U/L Normal 13-56 [facility] Comment on above: Performed By: #### L 100.0100, L500.4050 ####[facility] [address] [place], [address] AST [Catalytic activity/Vol] 23 U/L Normal 15-37 [facility] Comment on above: Performed By: #### L 100.0100, L500.4050 ####[facility] [address] [place], [address] Bilirubin [Mass/Vol] 1.70 mg/dL High 0.20-1.00 [facility] Comment on above: Result Comment: For patients on eltrombopag therapy, use of Dimension [place] TBIL is not recommended. Performed By: #### L 100.0100, L500.4050 ####[facility] [address] [place], [address] BUN/CRE 17.1 RATIO Normal 10-20 [facility] Comment on above: Performed By: #### L 100.0100, L500.4050 ####[facility] [address] [place], [address] CA,Total 8.6 mg/dL Normal 8.5-10.1 [facility] Comment on above: Performed By: #### L 100.0100, L500.4050 ####[facility] [address] [place], [address] Chloride [Moles/Vol] 108 mmol/L High 98-107 [facility] Comment on above: Performed By: #### L 100.0100, L500.4050 ####[facility] [address] [place], [address] CO2 [Moles/Vol] 25.0 mmol/L Normal 21.0-32.0 [facility] Comment on above: Performed By: #### L 100.0100, L500.4050 ####[facility] [address] [place], [address] Creatinine [Mass/Vol] 0.76 mg/dL Normal 0.55-1.02 [facility] Comment on above: Result Comment: The validity of the calculated GFR GFRAA in patients over70 years has not been determined. Clinical correlation isessential. Performed By: #### L 100.0100, L500.4050 ####[facility] [address] [place], [address] ECRCL 95.80 ml/min Normal [facility] Comment on above: Performed By: #### L 100.0100, L500.4050 ####[facility] [address] [place], [address] EST GFR - AA 103 mL/min Normal >60 [facility] Comment on above: Result Comment: Afri can Cypriot GFR Calc Performed By: #### L 100.0100, L500.4050 ####[facility] [address] [place], [address] GAP 3 Low 5-15 [facility] Comment on above: Performed By: #### L 100.0100, L500.4050 ####[facility] [address] [place], [address] GFR/1.73 sq M.predicted among non-blacks MDRD (S/P/Bld) [Vol rate/Area] 85 mL/min/{1.73_m2} Normal >60 [facility] Comment on above: Result Comment: Non- GFR Calc Performed By: #### L 100.0100, L500.4050 ####[facility] [address] [place], [address] Globulin (S) [Mass/Vol] 3.9 g/dL Normal 2.2-4.2 [facility] Comment on above: Performed By: #### L 100.0100, L500.4050 ####[facility] [address] [place], [address] Glucose [Mass/Vol] 178 mg/dL High 74-106 [facility] Comment on above: Result Comment: Fast ing Glucose result greater than or equal to 126 mg/dLsuggests DIABETES MELLITUS per A.D.A. criteria. Performed By: #### L 100.0100, L500.4050 ####[facility] [address] [place], [address] Potassium [Moles/Vol] 3.1 mmol/L Low 3.5-5.1 [facility] Comment on above: Performed By: #### L 100.0100, L500.4050 ####[facility] [address] [place], [address] Sodium [Moles/Vol] 136 mmol/L Normal 136-145 [facility] Comment on above: Performed By: #### L 100.0100, L500.4050 ####[facility] [address] [place], [address] T PROT 6.3 g/dL Low 6.4-8.2 [facility] Comment on above: Performed By: #### L 100.0100, L500.4050 ####[facility] [address] [place], [address] Urea nitrogen [Mass/Vol] 13 mg/dL Normal 7-18 [facility] Comment on above: Performed By: #### L 100.0100, L500.4050 ####[facility] [address] [place], [address] Abdomen/Pelvis W IV Cont ONL Yon 12-29-2023 Abdomen/Pelvis W IV Cont ONLY Normal [facility] Alcohol, Blood (Medical)-Ser umon 12-29-2023 SERUM ETOH 4.0 mg/dL Normal [facility] Comment on above: Result Comment: The serum:whole blood ethanol ratio is approximately 1.14and varies slightly with hematocrit.Medical Alcohol reference interval and critical value innon-tolerant individuals; 50 - 100 Impairment 100 Intoxication 100 - 250 Severe Poisoning 250 - 400 Deep/possible fatal coma Performed By: #### L 501.9100 ####[facility] [address] [place], [address] Bedside Glucoseon 12-29-2023 FINGERSTICK GLU 285 mg/dL High 74-106 [facility] Comment on above: Result Comment: TALIA CHAMBERS OF PATIENT CARE PER NURSING PROTOCOL Performed By: #### L 501.080 ####[facility] [address] [place], [address] CBC W/Diff, Automatedon - Absolute Lymph 1.21 X10 3/uL Normal 0.83-4.51 [facility] Comment on above: Performed By: #### L 500.4050, L501.2450, L100.0100 ####[facility] [address] [place], [address] Absolute Neut 7.7 X10 3/uL Normal 2.0-7.7 [facility] Comment on above: Performed By: #### L 500.4050, L501.2450, L100.0100 ####[facility] [address] [place], [address] Basophils/100 WBC (Bld) 0.3 % Normal 0-1 [facility] Comment on above: Performed By: #### L 500.4050, L501.2450, L100.0100 ####[facility] [address] [place], [address] Eosinophils/100 WBC (Bld) 0.7 % Normal 0-5 [facility] Comment on above: Performed By: #### L 500.4050, L501.2450, L100.0100 ####[facility] [address] [place], [address] Erythrocyte distribution width (RBC) [Ratio] 13.3 % Normal 11.6-14.6 [facility] Comment on above: Performed By: #### L 500.4050, L501.2450, L100.0100 ####[facility] [address] [place], [address] Hematocrit (Bld) [Volume fraction] 41.5 % Normal 37-47 [facility] Comment on above: Performed By: #### L 500.4050, L501.2450, L100.0100 ####[facility] [address] [place], [address] Hemoglobin (Bld) [Mass/Vol] 13.9 g/dL Normal 12.0-15.0 [facility] Comment on above: Performed By: #### L 500.4050, L501.2450, L100.0100 ####[facility] [address] [place], [address] IG% 0.200 Normal 0.0-0.9 [facility] Comment on above: Result Comment: IG% - Immature Granulocytes (promyelocytes, myelocytes andmetamyelocytes) > 1% indicates that a LEFT SHIFT is Present. Performed By: #### L 500.4050, L501.2450, L100.0100 ####[facility] [address] [place], [address] Lymphocytes/100 WBC (Bld) 12.6 % Low 19-41 [facility] Comment on above: Performed By: #### L 500.4050, L501.2450, L100.0100 ####[facility] [address] [place], [address] MCH (RBC) [Entitic mass] 27.2 pg Normal 27.0-32.0 [facility] Comment on above: Performed By: #### L 500.4050, L501.2450, L100.0100 ####[facility] [address] [place], [address] MCHC (RBC) [Mass/Vol] 33.5 g/dL Normal 32-36 [facility] Comment on above: Performed By: #### L 500.4050, L501.2450, L100.0100 ####[facility] [address] [place], [address] MCV (RBC) [Entitic vol] 81.2 fL Normal 81-99 [facility] Comment on above: Performed By: #### L 500.4050, L501.2450, L100.0100 ####[facility] [address] [place], [address] Monocytes/100 WBC (Bld) 5.5 % Normal 0-10 [facility] Comment on above: Performed By: #### L 500.4050, L501.2450, L100.0100 ####[facility] [address] [place], [address] Neutrophils/100 WBC (Bld) 80.7 % High 47-70 [facility] Comment on above: Performed By: #### L 500.4050, L501.2450, L100.0100 ####[facility] [address] [place], [address] Nucleated RBC (Bld) [#/Vol] 0 10*3/uL Normal 0-5 [facility] Comment on above: Performed By: #### L 500.4050, L501.2450, L100.0100 ####[facility] [address] [place], [address] Platelet mean volume (Bld) [Entitic vol] 8.9 fL Normal 6.2-12.0 [facility] Comment on above: Performed By: #### L 500.4050, L501.2450, L100.0100 ####[facility] [address] [place], [address] Platelets (Bld) [#/Vol] 255 10*3/uL Normal 150-450 [facility] Comment on above: Performed By: #### L 500.4050, L501.2450, L100.0100 ####[facility] [address] [place], [address] RBC (Bld) [#/Vol] 5.11 10*6/uL Normal 4.2-5.4 [facility] Comment on above: Performed By: #### L 500.4050, L501.2450, L100.0100 ####[facility] [address] [place], [address] RDW SD 39.4 fl Normal 35.1-43.9 [facility] Comment on above: Performed By: #### L 500.4050, L501.2450, L100.0100 ####[facility] [address] [place], [address] WBC (Bld) [#/Vol] 9.6 10*3/uL Normal 4.4-11.0 [facility] Comment on above: Performed By: #### L 500.4050, L501.2450, L100.0100 ####[facility] [address] [place], [address] Comprehensive Metabolic Prof ilon 12-29-2023 Albumin [Mass/Vol] 3.2 g/dL Normal 3.2-5.0 [facility] Comment on above: Performed By: #### L 500.4050, L501.2450, L100.0100 ####[facility] [address] [place], [address] Albumin/Globulin [Mass ratio] 0.7 {ratio} Low 0.9-2.4 [facility] Comment on above: Performed By: #### L 500.4050, L501.2450, L100.0100 ####[facility] [address] [place], [address] ALK P 142 U/L High 45-117 [facility] Comment on above: Performed By: #### L 500.4050, L501.2450, L100.0100 ####[facility] [address] [place], [address] ALT [Catalytic activity/Vol] 23 U/L Normal 13-56 [facility] Comment on above: Performed By: #### L 500.4050, L501.2450, L100.0100 ####[facility] [address] [place], [address] AST [Catalytic activity/Vol] 25 U/L Normal 15-37 [facility] Comment on above: Performed By: #### L 500.4050, L501.2450, L100.0100 ####[facility] [address] [place], [address] Bilirubin [Mass/Vol] 1.30 mg/dL High 0.20-1.00 [facility] Comment on above: Result Comment: For patients on eltrombopag therapy, use of Dimension [place] TBIL is not recommended. Performed By: #### L 500.4050, L501.2450, L100.0100 ####[facility] [address] [place], [address] BUN/CRE 13.9 RATIO Normal 10-20 [facility] Comment on above: Performed By: #### L 500.4050, L501.2450, L100.0100 ####[facility] [address] [place], [address] CA,Total 10.0 mg/dL Normal 8.5-10.1 [facility] Comment on above: Performed By: #### L 500.4050, L501.2450, L100.0100 ####[facility] [address] [place], [address] Chloride [Moles/Vol] 101 mmol/L Normal 98-107 [facility] Comment on above: Performed By: #### L 500.4050, L501.2450, L100.0100 ####[facility] [address] [place], [address] CO2 [Moles/Vol] 27.0 mmol/L Normal 21.0-32.0 [facility] Comment on above: Performed By: #### L 500.4050, L501.2450, L100.0100 ####[facility] [address] [place], [address] Creatinine [Mass/Vol] 1.01 mg/dL Normal 0.55-1.02 [facility] Comment on above: Result Comment: The validity of the calculated GFR GFRAA in patients over70 years has not been determined. Clinical correlation isessential. Performed By: #### L 500.4050, L501.2450, L100.0100 ####[facility] [address] [place], [address] ECRCL 71.55 ml/min Normal [facility] Comment on above: Performed By: #### L 500.4050, L501.2450, L100.0100 ####[facility] [address] [place], [address] EST GFR - AA 74 mL/min Normal >60 [facility] Comment on above: Result Comment: Afri can Cypriot GFR Calc Performed By: #### L 500.4050, L501.2450, L100.0100 ####[facility] [address] [place], [address] GAP 7 Normal 5-15 [facility] Comment on above: Performed By: #### L 500.4050, L501.2450, L100.0100 ####[facility] [address] [place], [address] GFR/1.73 sq M.predicted among non-blacks MDRD (S/P/Bld) [Vol rate/Area] 61 mL/min/{1.73_m2} Normal >60 [facility] Comment on above: Result Comment: Non- GFR Calc Performed By: #### L 500.4050, L501.2450, L100.0100 ####[facility] [address] [place], [address] Globulin (S) [Mass/Vol] 4.7 g/dL High 2.2-4.2 [facility] Comment on above: Performed By: #### L 500.4050, L501.2450, L100.0100 ####[facility] [address] [place], [address] Glucose [Mass/Vol] 331 mg/dL High 74-106 [facility] Comment on above: Result Comment: Gluc ose result greater than or equal to 200 mg/dLsuggests DIABETES MELLITUS per A.D.A. criteria. Performed By: #### L 500.4050, L501.2450, L100.0100 ####[facility] [address] [place], [address] Potassium [Moles/Vol] 3.8 mmol/L Normal 3.5-5.1 [facility] Comment on above: Performed By: #### L 500.4050, L501.2450, L100.0100 ####[facility] [address] [place], [address] Sodium [Moles/Vol] 135 mmol/L Low 136-145 [facility] Comment on above: Performed By: #### L 500.4050, L501.2450, L100.0100 ####[facility] [address] [place], [address] T PROT 7.9 g/dL Normal 6.4-8.2 [facility] Comment on above: Performed By: #### L 500.4050, L501.2450, L100.0100 ####[facility] [address] [place], [address] Urea nitrogen [Mass/Vol] 14 mg/dL Normal 7-18 [facility] Comment on above: Performed By: #### L 500.4050, L501.2450, L100.0100 ####[facility] [address] [place], [address] Emergency Department Summary on 12-29-2023 Emergency Department Summary Normal [facility] Femur Min 2 Viewson 12-29-19 24 Femur Min 2 Views Normal [facility] H AND P Exam - Hospitaliston 12-29-2023 H&P Exam - Hospitalist Normal [facility] Lipaseon 12-29-2023 Lipase [Catalytic activity/Vol] 38 U/L Normal 13-75 [facility] Comment on above: Result Comment: Gege edgar note:LIPASE revised reference range effective 22.New Lipase methodology. Expected to produce lower valuesthan the previous assay method.NEW Reference Range: 13 - 75 U/L Performed By: #### L 500.4050, L501.2450, L100.0100 ####[facility] [address] [place], [address] Magnesiumon 12-29-2023 Magnesium [Mass/Vol] 2.0 mg/dL Normal 1.6-2.6 [facility] Comment on above: Order Comment: Comme nts: May add to ED labsComments: may add to ED labs Performed By: #### L 501.2300, L509.7000, L501.5200 ####[facility] [address] [place], [address] Pelvis 1 or 2 Viewson 2023 Pelvis 1 or 2 Views Normal [facility] Phosphoruson 12-29-2023 Phosphate [Mass/Vol] 2.6 mg/dL Normal 2.5-4.9 [facility] Comment on above: Order Comment: Comme nts: May add to ED labsComments: may add to ED labs Performed By: #### L 501.2300, L509.7000, L501.5200 ####[facility] [address] [place], [address] Procalcitoninon 12-29-2023 Procalcitonin 0.23 ng/mL High 0.00-0.09 [facility] Comment on above: Result Comment: A pr [...] Performed By: #### L 501.2300, L509.7000, L501.5200 ####[facility] [address] [place], [address] Urinalysis, Completeon 12-28 RBC 10-25 SEEN Normal 0-5 [facility] Comment on above: Order Comment: LUISA CTOR TO SPECIFY Performed By: #### L 400.0001 ####[facility] [address] [place], [address] BACTERIA 0 SEEN Normal None Seen [facility] Comment on above: Order Comment: LUISA CTOR TO SPECIFY Performed By: #### L 400.0001 ####[facility] [address] [place], [address] EPI,SQUAMOUS 0 SEEN Normal 5-10 [facility] Comment on above: Order Comment: LUISA CTOR TO SPECIFY Performed By: #### L 400.0001 ####[facility] [address] [place], [address] Mucus Ql (Urine sed) 0 SEEN Normal [facility] Comment on above: Order Comment: LUISA CTOR TO SPECIFY Performed By: #### L 400.0001 ####[facility] [address] [place], [address] WBC 0 SEEN Normal 0-5 [facility] Comment on above: Order Comment: LUISA CTOR TO SPECIFY Performed By: #### L 400.0001 ####[facility] [address] [place], [address] Urine Drug Screen (VISTA)on 12-29-2023 AMPHETAMINES Negative Normal <1000 ng/mL [facility] Comment on above: Order Comment: Pleas e add to prior urine sample obtained in ED Performed By: #### L 505.5000 ####[facility] [address] [facility] [address] BARBITIURATES Negative Normal < 200 ng/mL [facility] Comment on above: Order Comment: Pleas e add to prior urine sample obtained in ED Performed By: #### L 505.5000 ####[facility] [address] [facility] [address] BENZODIAZIPINE Negative Normal < 200 ng/mL [facility] Comment on above: Order Comment: Pleas e add to prior urine sample obtained in ED Performed By: #### L 505.5000 ####[facility] [address] [place] [address] COCAINE Negative Normal < 300 ng/mL [facility] Comment on above: Order Comment: Pleas e add to prior urine sample obtained in ED Performed By: #### L 505.5000 ####[facility] [address] [place] [address] ECSTACY Negative Normal < 500 ng/mL [facility] Comment on above: Order Comment: Pleas e add to prior urine sample obtained in ED Performed By: #### L 505.5000 ####[facility] [address] [place] [address] METHADONE Negative Normal < 300 ng/mL [facility] Comment on above: Order Comment: Pleas e add to prior urine sample obtained in ED Performed By: #### L 505.5000 ####[facility] [address] [place] [id number] OPIATES Positive Abnormal < 300 ng/mL [facility] Comment on above: Order Comment: Pleas e add to prior urine sample obtained in ED Performed By: #### L 505.5000 ####[facility] [address] [place] [id number] PCP Negative Normal < 25 ng/mL [facility] Comment on above: Order Comment: Pleas e add to prior urine sample obtained in ED Performed By: #### L 505.5000 ####[facility] [address] [facility] [address] THC Positive Abnormal < 50 ng/mL [facility] Comment on above: Order Comment: Pleas e add to prior urine sample obtained in ED Performed By: #### L 505.5000 ####[facility] [address] [facility] [address] VISTA UDS PH 7 Normal [facility] Comment on above: Order Comment: Pleas e add to prior urine sample obtained in ED Performed By: #### L 505.5000 ####[facility] [address] [place] [phone] AMPHETAMINES Normal <1000 ng/mL [facility] Comment on above: Result Comment: Canc elled via OM: Order edited - Discontinuing original order Performed By: #### L 505.5000 ####[facility] [address] [facility] [address] BARBITIURATES Normal < 200 ng/mL [facility] Comment on above: Result Comment: Canc elled via OM: Order edited - Discontinuing original order Performed By: #### L 505.5000 ####[facility] [address] [place] [phone] BENZODIAZIPINE Normal < 200 ng/mL [facility] Comment on above: Result Comment: Canc elled via OM: Order edited - Discontinuing original order Performed By: #### L 505.5000 ####[facility] [address] [place] [address] COCAINE Normal < 300 ng/mL [facility] Comment on above: Result Comment: Canc elled via OM: Order edited - Discontinuing original order Performed By: #### L 505.5000 ####[facility] [address] [place], [address] DRUG CONFIRM Normal [facility] Comment on above: Result Comment: Canc elled via OM: Order edited - Discontinuing original order Performed By: #### L 505.5000 ####[facility] [address] [place], [address] ECSTACY Normal < 500 ng/mL [facility] Comment on above: Result Comment: Canc elled via OM: Order edited - Discontinuing original order Performed By: #### L 505.5000 ####[facility] [address] [place], [address] METHADONE Normal < 300 ng/mL [facility] Comment on above: Result Comment: Canc elled via OM: Order edited - Discontinuing original order Performed By: #### L 505.5000 ####[facility] [address] [place], [address] OPIATES Normal < 300 ng/mL [facility] Comment on above: Result Comment: Canc elled via OM: Order edited - Discontinuing original order Performed By: #### L 505.5000 ####[facility] [address] [place], [address] PCP Normal < 25 ng/mL [facility] Comment on above: Result Comment: Canc elled via OM: Order edited - Discontinuing original order Performed By: #### L 505.5000 ####[facility] [address] [place], [address] THC Normal < 50 ng/mL [facility] Comment on above: Result Comment: Canc elled via OM: Order edited - Discontinuing original order Performed By: #### L 505.5000 ####[facility] [address] [place], [address] VISTA UDS PH Normal [facility] Comment on above: Result Comment: Canc elled via OM: Order edited - Discontinuing original order Performed By: #### L 505.5000 ####[facility] [address] [place], [address] [facility] ----- TRENTON JACKSON ([id number]) 1970 F [facility] Date Time Provider Department 11/20/[address] [facility] During your visit today, we recorded the following information about you: Stephanie De La Cruz 11/20/2023 8:48 AM Signed The patient was discharged from [facility] 10-20-23 with an order to schedule with the Heart Failure Clinic. The Clinic reached out to the patient with no response. Therefore, this is considered a deferral of the Clinic's services at this time. Allergies As of Date: 11/20/2023 Noted Allergy Reaction LATEX 01/18/2011 9 - Itching Comments: Red and dry cracking skin Date Reviewed: 10/19/2023 Reviewed by: Jose Antonio Singh APRN.[facility] - Fully Assessed Reason for Visit: Orders [361] Cmt: [facility] deferral Prescriptions as of 11/20/2023 - [...] all medications X 4 days per her [id number]. Problem List As Of Date 11/20/2023 Noted [...] 07/20/2018 Frailty (more content not included)... Normal [facility] CNPNadine 10-22-2023 [place]N Telephone ([facility]) ----- CORRIETRENTON ([id number]) 1970 F [place] Date Time Provider Department 10/22/23 STEPHANIE WHITING [facility] During your visit today, we recorded the following information about you: Stephanie De La Cruz 10/22/2023 9:37 AM Signed Patient was discharged from [facility] 10-20-23 with an order to schedule with the [facility] Failure Clinic. However, the patient was [facility] A letter was mailed to the patient asking them to contact the Clinic upon discharge from the facility. Allergies As of Date: 10/22/2023 Noted Allergy Reaction LATEX 01/18/2011 9 - Itching Comments: Red and dry cracking skin Date Reviewed: 10/19/2023 Reviewed by: Jose Antonio Singh APRN.TERMINAL PRESS OPERATOR - Fully Assessed Reason for Visit: Orders [701] Cmt: [facility] order contact/SNF ltr Prescriptions as of [...] all medications X 4 days per her [id number]-48-3-2017. Problem List As Of Date 10/22/2023 Noted [...] 06/08/2018 Avinash (more content not included)... Normal [facility] Basic metabolic 2000 panelon 10-19-2023 Anion gap [Moles/Vol] 12 mmol/L Normal 9-18 [facility] Comment on above: Order Comment: Speci men Type: BLOOD SPECIMEN Ordering Facility: [facility] Address: [address] [place] [address] Performed By: #### 2 4321-2 #### [facility] CLIA [id number] 1 [place] [address] [place] Calcium [Mass/Vol] 8.9 mg/dL Normal 8.5-10.2 [facility] Comment on above: Order Comment: Speci men Type: BLOOD SPECIMEN Ordering Facility: [facility] Address: [address] [place] [address] Performed By: #### 2 4321-2 #### [facility] CLIA [id number] [address] [place] [address] [place] Chloride [Moles/Vol] 103 mmol/L Normal 97-105 [facility] Comment on above: Order Comment: Speci men Type: BLOOD SPECIMEN Ordering Facility: [facility] Address: [address] [place] [address] Performed By: #### 2 4321-2 #### [facility] CLIA [id number] [address] [place] CO2 [Moles/Vol] 22 mmol/L Normal 22-30 [facility] Comment on above: Order Comment: Speci men Type: BLOOD SPECIMEN Ordering Facility: [facility] Address: [address] [place] [address] Performed By: #### 2 4321-2 #### [facility] CLIA [id number] [address] [place] Creatinine [Mass/Vol] 1.07 mg/dL High 0.58-0.96 [facility] Comment on above: Order Comment: Speci men Type: BLOOD SPECIMEN Ordering Facility: [facility] Address: [address] [place] [address] Performed By: #### 2 4321-2 #### [facility] CLIA [id number] [address] [place] Creatinine and Glomerular filtration rate.predicted panel (S/P/Bld) 63 mL/min/1.73m??? Normal >=60 [facility] Comment on above: Order Comment: Speci men Type: BLOOD SPECIMEN Ordering Facility: [facility] Address: [address] [place] [address] Result Comment: Crissy mated Glomerular Filtration Rate [...] GFR. Performed By: #### 2 4321-2 #### [facility] CLIA [id number] [address] [place] [address] [place] Glucose [Mass/Vol] 104 mg/dL High 74-99 [facility] Comment on above: Order Comment: Speci men Type: BLOOD SPECIMEN Ordering Facility: [facility] Address: [address] [place] [address] Result Comment: The [place] Diabetes Association (ADA) provides guidance for cutoff [...] Standards of Medical Care in Diabetes 2016, [place] [employer]. Diabetes Care. 2016.39(Suppl 1). Performed By: #### 2 4321-2 #### [facility] CLIA [id number] [address] [place] [address] [place] Potassium [Moles/Vol] 4.2 mmol/L Normal 3.7-5.1 [facility] Comment on above: Order Comment: Radha tony Type: BLOOD SPECIMEN Ordering Facility: [facility] Address: [address] [place] [id number] Performed By: #### 2 4321-2 #### [facility] CLIA [id number] [address] [place] [address] [place] Sodium [Moles/Vol] 137 mmol/L Normal 136-144 [facility] Comment on above: Order Comment: Speci men Type: BLOOD SPECIMEN Ordering Facility: [facility] Address: [address] [place] [id number] Performed By: #### 2 4321-2 #### [facility] CLIA [id number] [address] Urea nitrogen [Mass/Vol] 49 mg/dL High 7-21 [facility] Comment on above: Order Comment: Speci men Type: BLOOD SPECIMEN Ordering Facility: [facility] Address: [address] [place] [address] Performed By: #### 2 4321-2 #### [facility] CLIA [id number] [address] CNDSon 10-19-2023 CNDS HNO ID: [id number] Author: TATIANA RAMSAY MD Service: Hospital Medicine Author Type: Nurse Practitioner Type: Discharge Summary Filed: 10/22/2023 09:18 Note Text: ----- Attestation signed by Tatiana Ramsay MD at 10/22/2023 9:18 AM Attending Note I have reviewed the PA/HYDROLOGIST note. Additions or changes: None Signature: Tatiana [...] internal medicine. Schedule an appointment by calling [phone]. You can also be seen at [facility]. Information for this clinic has been attached to your discharge instructions. -Follow-up with Dr. May with orthopedics in 4 weeks -Follow up with the heart failure clinic. AN APPOINTMENT REQUEST HAS BEEN MADE FOR YOU. IF YOU HAVE NOT HEARD FROM THE SCHEDULERS BY SUNDAY PLEASE CALL [phone] TO CONFIRM YOUR APPOINTMENT DATE/TIME -Please work [...] Cleanse with (more content not included)... Normal [facility] CONSULTon 10-19-2023 CONSULT HNO ID: [id number] Author: LATRICIA HERNANDEZ MD Service: Clinical Cardiology Author Type: Physician Type: Consults Filed: 10/19/2023 12:22 Note Text: CONSULT: CARDIOLOGY SERVICE SERVICE DATE: 10/19/2023 SERVICE TIME: 10:30 AM CONSULTING PHYSICIAN: Latricia Hernandez PCP: Nathaly Barfieldmarcy Aisha ATTENDING: Tatiana Ramsay, * REASON FOR [...] daily. insulin (more content not included)... Normal [facility] CONSULT PROGon 10-19-2023 CONSULT PROG HNO ID: [id number] Author: DARLYN CANTOR APRN.TERMINAL PRESS OPERATOR Service: Wound/Ostomy Author Type: Nurse Practitioner Type: Consult Progress Note Filed: 10/19/2023 11:27 Note Text: WOUND CARE SERVICE CONSULT PARTS MANAGER NOTE SERVICE DATE: 10/19/2023 SERVICE TIME: 849 [...] who is seen today with Emma Parikh Wound/belt sander, and presented to hospital with complaints of [...] Anterior;Proximal;Right;U pper Leg Routine Active Darlyn Cantor, PARTS MANAGER.TERMINAL PRESS OPERATOR - Sp (more content not included)... Normal [facility] ECHOon 10-19-2023 Echocardiography Echocardiography Rep ort: Transthoracic Echo [facility] Date of service: 10/19/2023 10:23:25 AM HOSPITAL Ordering physician: JOSE ANTONIO SINGH Indication: Limited for pericardial effusion Technologist: Mode Galvez [facility] Interpreting physician: Colin Drake MD PATIENT: Name: [...] * * Final * * * CC [employer] : [id number] Normal [facility] ED NOTEon 10-19-2023 ED NOTE HNO ID: [id number] Author: JIMY CHING RN Service: Emergency Medicine Author Type: Registered Nurse Type: ED Notes Filed: 10/19/2023 00:29 Note Text: . Normal [facility] ED NOTE HNO ID: [id number] Author: JIMY CHING RN Service: Emergency Medicine Author Type: Registered Nurse Type: ED Notes Filed: 10/19/2023 00:30 Note Text: Report to floor attempted RN not available to take report Normal [facility] Hepatic function 2000 panelo n 10-19-2023 Albumin [Mass/Vol] 3.4 g/dL Low 3.9-4.9 [facility] Comment on above: Order Comment: Radha tony Type: BLOOD SPECIMEN Ordering Facility: [facility] Address: [address] [place] [address] Performed By: #### 2 4321-2 #### [facility] CLIA [id number] [address] STATES OF [facility] ALP [Catalytic activity/Vol] 134 U/L High 34-123 [facility] Comment on above: Order Comment: Radha tony Type: BLOOD SPECIMEN Ordering Facility: [facility] Address: [address] [place] [address] Performed By: #### 2 4321-2 #### [facility] CLIA [id number] [address] OF [facility] ALT With P-5'-P [Catalytic activity/Vol] 17 U/L Normal 7-38 [facility] Comment on above: Order Comment: Speci men Type: BLOOD SPECIMEN Ordering Facility: [facility] Address: [address] [place] [address] Performed By: #### 2 4321-2 #### [facility] CLIA [id number] [address] OF [facility] AST With P-5'-P [Catalytic activity/Vol] 19 U/L Normal 13-35 [facility] Comment on above: Order Comment: Speci men Type: BLOOD SPECIMEN Ordering Facility: [facility] Address: [address] [place] [address] Performed By: #### 2 4321-2 #### [facility] CLIA [id number] [address] [place] Bilirubin [Mass/Vol] 0.5 mg/dL Normal 0.2-1.3 [facility] Comment on above: Order Comment: Speci men Type: BLOOD SPECIMEN Ordering Facility: [facility] Address: [address] [place] [address] Performed By: #### 2 4321-2 #### [facility] CLIA [id number] [address] Bilirubin.conjugated [Mass/Vol] mg/dL Normal <0.2 [facility] Comment on above: Order Comment: Speci men Type: BLOOD SPECIMEN Ordering Facility: [facility] Address: [address] [place] [address] Performed By: #### 2 4321-2 #### [facility] CLIA [id number] [address] [place] Protein [Mass/Vol] 6.7 g/dL Normal 6.3-8.0 [facility] Comment on above: Order Comment: Speci men Type: BLOOD SPECIMEN Ordering Facility: [facility] Address: [address] [place] [address] Performed By: #### 2 4321-2 #### [facility] CLIA [id number] [address] OF [facility] CBC W Auto Differential pane l (Bld)on 10-18-2023 Basophils (Bld) [#/Vol] 0.05 10*3/uL Normal <0.11 [facility] Comment on above: Order Comment: Speci men Type: BLOOD SPECIMEN Ordering Facility: [facility] Address: [address] [place] [address] Performed By: #### 2 4321-2 #### [facility] CLIA [id number] [address] Basophils/100 WBC (Bld) 0.6 % Normal [facility] Comment on above: Order Comment: Speci men Type: BLOOD SPECIMEN Ordering Facility: [facility] Address: [address] [place] [address] Performed By: #### 2 4321-2 #### [facility] CLIA [id number] [address] Differential cell count method Nom (Bld) Auto Normal [facility] Comment on above: Order Comment: Speci men Type: BLOOD SPECIMEN Ordering Facility: [facility] Address: [address] [place] [address] Performed By: #### 2 4321-2 #### [facility] CLIA [id number] [address] [place] Eosinophils (Bld) [#/Vol] 0.10 10*3/uL Normal <0.46 [facility] Comment on above: Order Comment: Speci men Type: BLOOD SPECIMEN Ordering Facility: [facility] Address: [address] [place] [address] Performed By: #### 2 4321-2 #### [facility] CLIA [id number] [address] Eosinophils/100 WBC (Bld) 1.2 % Normal [facility] Comment on above: Order Comment: Speci men Type: BLOOD SPECIMEN Ordering Facility: [facility] Address: [address] [place] [address] Performed By: #### 2 4321-2 #### [facility] CLIA [id number] [address] [place] Erythrocyte distribution width (RBC) [Ratio] 16.2 % High 11.5-15.0 [facility] Comment on above: Order Comment: Speci men Type: BLOOD SPECIMEN Ordering Facility: [facility] Address: [address] [place] [address] Performed By: #### 2 4321-2 #### [facility] CLIA [id number] [address] [place] Hematocrit (Bld) [Volume fraction] 36.5 % Normal 36.0-46.0 [facility] Comment on above: Order Comment: Speci men Type: BLOOD SPECIMEN Ordering Facility: [facility] Address: [address] [place] [address] Performed By: #### 2 4321-2 #### [facility] CLIA [id number] [address] [place] Hemoglobin (Bld) [Mass/Vol] 11.6 g/dL Normal 11.5-15.5 [facility] Comment on above: Order Comment: Speci men Type: BLOOD SPECIMEN Ordering Facility: [facility] Address: [address] [place] [address] Performed By: #### 2 4321-2 #### [facility] CLIA [id number] [address] [place] Immature granulocytes (Bld) [#/Vol] 0.03 10*3/uL Normal <0.10 [facility] Comment on above: Order Comment: Speci men Type: BLOOD SPECIMEN Ordering Facility: [facility] Address: [address] [place] [address] Performed By: #### 2 4321-2 #### [facility] CLIA [id number] [address] Immature granulocytes/100 WBC (Bld) 0.4 % Normal [facility] Comment on above: Order Comment: Speci men Type: BLOOD SPECIMEN Ordering Facility: [facility] Address: [address] [place] [address] Performed By: #### 2 4321-2 #### [facility] CLIA [id number] [address] [place] Lymphocytes (Bld) [#/Vol] 1.82 10*3/uL Normal 1.00-4.00 [facility] Comment on above: Order Comment: Speci men Type: BLOOD SPECIMEN Ordering Facility: [facility] Address: [address] [place] [address] Performed By: #### 2 4321-2 #### [facility] CLIA [id number] [address] Lymphocytes/100 WBC (Bld) 22.3 % Normal [facility] Comment on above: Order Comment: Speci men Type: BLOOD SPECIMEN Ordering Facility: [facility] Address: [address] [place] [address] Performed By: #### 2 4321-2 #### [facility] CLIA [id number] [address] MCH (RBC) [Entitic mass] 27.3 pg Normal 26.0-34.0 [facility] Comment on above: Order Comment: Speci men Type: BLOOD SPECIMEN Ordering Facility: [facility] Address: [address] [place] [address] Performed By: #### 2 4321-2 #### [facility] CLIA [id number] [address] OF [facility] MCHC (RBC) [Mass/Vol] 31.8 g/dL Normal 30.5-36.0 [facility] Comment on above: Order Comment: Speci men Type: BLOOD SPECIMEN Ordering Facility: [facility] Address: [address] [place] [address] Performed By: #### 2 4321-2 #### [facility] CLIA [id number] [address] OF [facility] MCV (RBC) [Entitic vol] 85.9 fL Normal 80.0-100.0 [facility] Comment on above: Order Comment: Speci men Type: BLOOD SPECIMEN Ordering Facility: [facility] Address: [address] [place] [address] Performed By: #### 2 4321-2 #### [facility] CLIA [id number] [address] [place] Monocytes (Bld) [#/Vol] 0.78 10*3/uL Normal <0.87 [facility] Comment on above: Order Comment: Speci men Type: BLOOD SPECIMEN Ordering Facility: [facility] Address: [address] [place] [address] Performed By: #### 2 1-2 #### [facility] CLIA [id number] [address] Monocytes/100 WBC (Bld) 9.6 % Normal [facility] Comment on above: Order Comment: Speci men Type: BLOOD SPECIMEN Ordering Facility: [facility] Address: [address] [place] [address] Performed By: #### 2 1-2 #### [facility] CLIA [id number] [address] [place] Neutrophils (Bld) [#/Vol] 5.38 10*3/uL Normal 1.45-7.50 [facility] Comment on above: Order Comment: Speci men Type: BLOOD SPECIMEN Ordering Facility: [facility] Address: [address] [place] [address] Performed By: #### 2 1-2 #### [facility] CLIA [id number] [address] [place] Neutrophils/100 WBC (Bld) 65.9 % Normal [facility] Comment on above: Order Comment: Speci men Type: BLOOD SPECIMEN Ordering Facility: [facility] Address: [facility] [place] [address] Performed By: #### 2 1-2 #### [facility] CLIA [id number] [address] [place] Nucleated RBC (Bld) [#/Vol] 10*3/uL Normal <0.01 [facility] Comment on above: Order Comment: Speci men Type: BLOOD SPECIMEN Ordering Facility: [facility] Address: [address] [place] [address] Performed By: #### 2 4321-2 #### [facility] CLIA [id number] [address] OF [facility] Nucleated RBC/100 WBC (Bld) [Ratio] 0.0 /100 WBC Normal [facility] Comment on above: Order Comment: Speci men Type: BLOOD SPECIMEN Ordering Facility: [facility] Address: [address] [place] [address] Performed By: #### 2 4321-2 #### [facility] CLIA [id number] [address] [place] Platelet mean volume (Bld) [Entitic vol] 9.1 fL Normal 9.0-12.7 [facility] Comment on above: Order Comment: Speci men Type: BLOOD SPECIMEN Ordering Facility: [facility] Address: [address] [place] [address] Performed By: #### 2 4321-2 #### [facility] CLIA [id number] [address] [place] Platelets (Bld) [#/Vol] 242 10*3/uL Normal 150-400 [facility] Comment on above: Order Comment: Speci men Type: BLOOD SPECIMEN Ordering Facility: [facility] Address: [address] [place] [address] Performed By: #### 2 4321-2 #### [facility] CLIA [id number] [address] [place] RBC (Bld) [#/Vol] 4.25 10*6/uL Normal 3.90-5.20 [facility] Comment on above: Order Comment: Speci men Type: BLOOD SPECIMEN Ordering Facility: [facility] Address: [address] [place] [address] Performed By: #### 2 4321-2 #### [facility] CLIA [id number] 1 [place] [id number] [place] WBC (Bld) [#/Vol] 8.16 10*3/uL Normal 3.70-11.00 [facility] Comment on above: Order Comment: Speci men Type: BLOOD SPECIMEN Ordering Facility: [facility] Address: [facility] [place] [address] Performed By: #### 2 4321-2 #### [facility] CLIA [id number] 1 [place] [id number] [facility] [place] [facility]20[facility]) ----- TRENTON JACKSON ([id number]) 1970 [facility] Date Time Provider Department [facility] During your visit today, we recorded the following information about you: [employer]enzin Industrial Renderer Ethel Shah 10/18/2023 11:46 AM Signed Returned Sara's call from [facility] regarding [place] - last nurse we spoke to (Bryant), they were to take patient to [place] [facility] and follow up with local ortho md. Called and spoke to Cindi - when order was given to Bryant in regards to giving an antibiotic AND taking to [place] ED for surgical consult if no improvement - there was no follow through on that end. The prison physician did give an antibiotic 09/27/23 - 10/04/23 and nothing was done after that until Cindi saw Trenton on 10/15/23 AND sent her to [place] ED. The ED gave her pain medication and sent her back to the facility. Cindi said Trenton has had some recent labs AND rose mary fax them to us, I did give the fax number to her. The lower incision is red and warm as well. Appointment scheduled for Sunday10/23/23 at 1:15pm w/MARTIN [place]. Sending to Dr. May for review Thank you Ethel [employer] [place] [employer] Renderer Sandra Shahlotalonso Sue 10/18/2023 3:03 PM Signed Spoke to Cindi - she is going to contact [facility] to arrange for transport. She did state that sometimes they can continuous pickling line pickler helper in 15 minutes but sometimes it can take hours. Cindi does have direct phone # and knows I am in office until 530pm should she need to reach the office, after that to call the main office phone #. Also verified [facility] ED address. Thank you Ethel Dave [employer] Allergies As of Date: 10/18/2023 Noted Allergy Reaction LATEX 01/18/2011 9 - Itching Comments: Red and dry cracking skin Date Reviewed: 09/05/2023 Reviewed by: Arminda Murillo RN - Fully Assessed Reason for Visit: returned prison call [Other] Patient Update [1234] Prescriptions as [...] all medications X 4 days per her [id number]. 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 Normal [facility] CONSULTon 10-18-2023 CONSULT HNO ID: [id number] Author: DIYA MAY MD Service: Orthopaedic Surgery Author Type: Resident Type: Consults Filed: 10/19/2023 08:09 Note Text: ----- Attestation signed by Diya May MD at 10/19/2023 8:09 AM I participated in the jones components. I agree [...] HPI: 53 year old female presented to [facility] due to concern for an infection of [...] 3 dose (more content not included)... Normal [facility] Comprehensive metabolic 2000 panelon 10-18-2023 Albumin [Mass/Vol] 3.5 g/dL Low 3.9-4.9 [facility] Comment on above: Order Comment: Speci men Type: BLOOD SPECIMEN Ordering Facility: [facility] Address: [address] [place] [address] Performed By: #### 2 432-8, #### [facility] CLIA [id number] [address] [place] [address] [place] ALP [Catalytic activity/Vol] 135 U/L High 34-123 [facility] Comment on above: Order Comment: Speci men Type: BLOOD SPECIMEN Ordering Facility: [facility] Address: [address] [place] [address] Performed By: #### 2 4323-, #### [facility] CLIA [id number] [address] [place] With P-5'-P [Catalytic activity/Vol] Normal [facility] Comment on above: Order Comment: Speci men Type: BLOOD SPECIMEN Ordering Facility: [facility] Address: [address] [place] [address] Result Comment: Unab le to assay due to interference from hemolysis. Suggest reorder as clinically indicated. Performed By: #### 2 4328, #### [facility] CLIA [id number] [address] Anion gap [Moles/Vol] 14 mmol/L Normal 9-18 [facility] Comment on above: Order Comment: Radha tony Type: BLOOD SPECIMEN Ordering Facility: [facility] Address: [address] [place] [address] Performed By: #### 2 4328, #### [facility] CLIA [id number] [address] [place] With P-5'-P [Catalytic activity/Vol] Normal [facility] Comment on above: Order Comment: Speci men Type: BLOOD SPECIMEN Ordering Facility: [facility] Address: [address] [place] [address] Result Comment: Unab le to assay due to interference from hemolysis. Suggest reorder as clinically indicated. Performed By: #### 2 8, #### [facility] CLIA [id number] [address] [place] Bilirubin [Mass/Vol] 0.5 mg/dL Normal 0.2-1.3 [facility] Comment on above: Order Comment: Speci men Type: BLOOD SPECIMEN Ordering Facility: [facility] Address: [address] [place] [address] Performed By: #### 2 4323-01, #### [facility] CLIA [id number] [address] [place] Calcium [Mass/Vol] 9.0 mg/dL Normal 8.5-10.2 [facility] Comment on above: Order Comment: Speci men Type: BLOOD SPECIMEN Ordering Facility: [facility] Address: [address] [place] [address] Performed By: #### 2 4323-8, #### [facility] CLIA [id number] [address] [place] [address] [place] Chloride [Moles/Vol] 98 mmol/L Normal 97-105 [facility] Comment on above: Order Comment: Speci men Type: BLOOD SPECIMEN Ordering Facility: [facility] Address: [address] [place] [address] Performed By: #### 2 43238, #### [facility] CLIA [id number] [address] [place] [address] [place] CO2 [Moles/Vol] 24 mmol/L Normal 22-30 [facility] Comment on above: Order Comment: Speci men Type: BLOOD SPECIMEN Ordering Facility: [facility] Address: [address] [place] [address] Performed By: #### 2 4328, #### [facility] CLIA [id number] [address] [place] Creatinine [Mass/Vol] 1.61 mg/dL High 0.58-0.96 [facility] Comment on above: Order Comment: Speci men Type: BLOOD SPECIMEN Ordering Facility: [facility] Address: [address] [place] [address] Performed By: #### 2 43238, #### [facility] CLIA [id number] [address] [place] Creatinine and Glomerular filtration rate.predicted panel (S/P/Bld) 38 mL/min/1.73m??? Low >=60 [facility] Comment on above: Order Comment: Speci men Type: BLOOD SPECIMEN Ordering Facility: [facility] Address: [address] [place] [address] Result Comment: Crissy mated Glomerular Filtration Rate [...] GFR. Performed By: #### 2 432-, #### [facility] CLIA [id number] [address] [place] [address] [place] Glucose [Mass/Vol] 160 mg/dL High 74-99 [facility] Comment on above: Order Comment: Speci men Type: BLOOD SPECIMEN Ordering Facility: [facility] Address: [address] [place] [address] Result Comment: The [place] Diabetes Association (ADA) provides guidance for cutoff [...] Standards of Medical Care in Diabetes 2016, [place] [employer]. Diabetes Care. 2016.39(Suppl 1). Performed By: #### 2 4323-01, #### [facility] CLIA [id number] [address] [place] [address] [place] Potassium [Moles/Vol] Normal [facility] Comment on above: Order Comment: Speci men Type: BLOOD SPECIMEN Ordering Facility: [facility] Address: [address] [place], [place] [id number] Result Comment: Unab le to assay due to interference from hemolysis. Suggest reorder as clinically indicated. Performed By: #### 2 43208-09, #### [facility] CLIA [id number] 1 [place] [address] [place] Protein [Mass/Vol] 6.9 g/dL Normal 6.3-8.0 [facility] Comment on above: Order Comment: Speci men Type: BLOOD SPECIMEN Ordering Facility: [facility] Address: [address] [place] [address] Performed By: #### 2 4323-8, #### [facility] CLIA [id number] [address] OF [facility] Sodium [Moles/Vol] 136 mmol/L Normal 136-144 [facility] Comment on above: Order Comment: Speci men Type: BLOOD SPECIMEN Ordering Facility: [facility] Address: [address] [place] [address] Performed By: #### 2 4323-8, #### [facility] CLIA [id number] [address] [facility] Urea nitrogen [Mass/Vol] 51 mg/dL High 7-21 [facility] Comment on above: Order Comment: Speci men Type: BLOOD SPECIMEN Ordering Facility: [facility] Address: [address] [place] [address] Performed By: #### 2 4328, #### [facility] CLIA [id number] [address] ED NOTEon 10-18-2023 ED NOTE HNO ID: [id number] Author: JIMY CHING RN Service: Emergency Medicine Author Type: Registered Nurse Type: ED Notes Filed: 10/18/2023 19:40 Note Text: Xray at bedside Normal [facility] ED NOTE HNO ID: [id number] Author: ERVIN RENO RN Service: Emergency Medicine Author Type: Registered Nurse Type: ED Notes Filed: 10/18/2023 18:56 Note Text: XR notified pt is ready for ordered imaging Normal [facility] ED NOTE HNO ID: [id number] Author: ERVIN RENO, RN Service: Emergency Medicine Author Type: Registered Nurse Type: ED Notes Filed: 10/18/2023 18:32 Note Text: Patient's identity verified by patient stating name, Patient's identity verified by patient stating date, Patient's identity verified by hospital ID bracelet. Patient placed on youth nutritional monitor, patient placed on non-invasive blood pressure monitor, patient placed on continuous pulse oximetry. Alarms set and on, patient tolerating monitoring. Normal [facility] ED NOTE HNO ID: [id number] Author: GARRISON VAUGHAN RN Service: ? Author Type: Registered Nurse Type: ED Notes Filed: 10/18/2023 18:24 Note Text: Bed: 33- Expected date: Expected time: Means of arrival: Comments: BH ONLY Normal [facility] ED PROV NOTEon 10-18-2023 ED PROV NOTE HNO ID: [id number] Author: MARIA E PORTILLO MD Service: Emergency [...] had any recent fevers chills in the prison denies any other concerns. The patient denies [...] disposition details MARIA E PORTILLO 10/19/23 0123 [facility] ED PROV NOTE HNO ID: [id number] Author: MARIA E PORTILLO MD Service: Emergency [...] a fall on and was transferred to [facility] for surgery from [place]. Pt has been having pain since the [...] Normal range (more content not included)... Normal [facility] HISTORY PHYSICALon HISTORY PHYSICAL HNO ID: [id number] Author: JUANCARLOS GRAHAM APRN.TERMINAL PRESS OPERATOR Service: Hospital Medicine Author Type: Nurse Practitioner Type: H&P Filed: 10/19/2023 01:52 Note Text: RAPID OBSERVATION UNIT HISTORY AND PHYSICAL EXAM SERVICE DATE: 10/19/2023 SERVICE TIME: 0152 Primary Care Physician: [facility]athaly [facility] NIGHT AND WEEKEND COVERAGE: Unit ext: [phone] Pager [phone] Subjective CHIEF COMPLAINT: Right hip pain HPI: [...] insulin in (more content not included)... Normal [facility] Magnesium SerPl-mCncon 10-17 Magnesium [Mass/Vol] 2.2 mg/dL Normal 1.7-2.3 [facility] Comment on above: Order Comment: Speci men Type: BLOOD SPECIMEN Ordering Facility: [facility] Address: [address] [place] [address] Performed By: #### 2 4323-8, 00218-4 #### [facility] CLIA [id number] [address] [facility] POTASSIUMon 10-18-2023 Potassium [Moles/Vol] 4.0 mmol/L Normal 3.7-5.1 [facility] Comment on above: Order Comment: Speci men Type: BLOOD SPECIMEN Ordering Facility: [facility] Address: [address] [place] [address] Performed By: #### 5 8410-2 #### [facility] CLIA [id number] [address] [place] XR HIP 3V PELV+ AP/LAT RTon 10-18-2023 [...] Hardware is intact. Vascular calcifications are present. Police Captain: GEORGE Transcribe Date/Time: Oct 18 2023 8:09P Dictated by : CLOVER LINTON MD This examination was interpreted and the report reviewed and electronically signed by: CLOVER LINTON MD on Oct 18 2023 8:13PM EST [id number] Normal [facility] Basophil percentageOrdered B y: Kaylie Trujillo on 10-12-2023 Chloride [Moles/Vol] 104 mmol/L 98-107 [facility] Glucose [Mass/Vol] 112 mg/dL 74-106 [facility] Comment on above: Fasting Glucose resu lt from 100 to 125 mg/dL suggests IMPAIRED HOMEOSTASIS per A.D.A. criteria. Potassium [Moles/Vol] 4.5 mmol/L 3.5-5.1 [facility] Sodium [Moles/Vol] 138 mmol/L 136-145 [facility] Laboratory - Chemistry and C hemistry - challengeOrdered By: Kaylie Trujillo on 10-12-2023 CO2 [Moles/Vol] 31.0 mmol/L 21.0-32.0 [facility] Urea nitrogen/Creatinine [Mass ratio] 34.1 mg/mg 10-20 [facility] No Panel InformationOrdered By: Kaylie Trujillo on 10-12-2023 Estimated GFR (MDRD) Amer 112 mL/min >60 [facility] Comment on above: GFR Calc Estimated GFR (MDRD) Non-Af Amer 93 mL/min >60 [facility] Comment on above: Non- GFR Calc Serum or plasma calcium xiomara urement (mass/volume)Ordered By: Kaylie Trujillo on 10-12-2023 Calcium [Mass/Vol] 8.7 mg/dL 8.5-10.1 [facility] Serum or plasma creatinine m easurement (mass/volume)Ordered By: Kaylie Trujillo on 10-12-2023 Creatinine [Mass/Vol] 0.70 mg/dL 0.55-1.02 [facility] Comment on above: The validity of the calculated GFR & GFRAA in patients over 70 years has not been determined. Clinical correlation is essential. Serum or plasma urea nitroge n measurement (mass/volume)Ordered By: Kaylie Trujillo on 05-10-2024 Urea nitrogen [Mass/Vol] 24 mg/dL 12-19 [facility] Thin prep Papanicolaou smear with manual screeningOrdered By: Kaylie Trujillo on 10-12-2023 Thin prep Papanicolaou smear with manual screening 3 10-16 [facility] CNPNon 10-09-2023 CNPN Telephone (AGPOB1) ----- TRENTON JACKSON ([id number]) 1970 [facility] Date Time Provider Department 10/09/23 DIYA MAY [...] calling if other than patient: Bryant @ [facility] Return call to if other than patient: same Best contact number: [phone] Thank you, Pauly Heredia October 09, 2023 [...] all medications X 4 days per her lytsup-87-1-2017. Problem List As Of Date 10/09/2023 Noted [...] diabetes mellitus (more content not included)... Normal [facility] Absolute lymphocyte countOrd ered By: Kaylie Trujillo on 10-08-2023 Lymphocytes Auto (Unsp spec) [#/Vol] 1.68 10*3/uL 0.83-4.51 [facility] Automated lymphocyte count a s percentage of total leukocytesOrdered By: Kaylie Trujillo on 10-08-2023 Lymphocytes/100 WBC Auto (Unsp spec) 19.2 % 19-41 [facility] Basophil percentageOrdered B y: Kaylie Trujillo on 10-08-2023 Basophils/100 WBC (Bld) 0.7 % 0-1 [facility] Chloride [Moles/Vol] 108 mmol/L 98-107 [facility] Eosinophils/100 WBC (Bld) 1.4 % 0-5 [facility] Glucose [Mass/Vol] 67 mg/dL 74-106 [facility] Hemoglobin (Bld) [Mass/Vol] 12.1 g/dL 12.0-15.0 [facility] Monocytes/100 WBC (Bld) 7.8 % 0-10 [facility] Neutrophils (Bld) [#/Vol] 6.2 10*3/uL 2.0-7.7 [facility] Neutrophils/100 WBC (Bld) 70.6 % 47-70 [facility] Potassium [Moles/Vol] 5.6 mmol/L 3.5-5.1 [facility] Sodium [Moles/Vol] 139 mmol/L 136-145 [facility] WBC (Bld) [#/Vol] 8.7 10*3/uL 4.4-11.0 [facility] Determination of erythrocyte mean corpuscular volume (MCV)Ordered By: Kaylie Trujillo on 10-08-2023 MCV (RBC) [Entitic vol] 86.7 fL 81-99 [facility] Erythrocyte distribution wid th ratioOrdered By: Kaylie Trujillo on 10-08-2023 Erythrocyte distribution width (RBC) [Ratio] 16.6 % 11.6-14.6 [facility] Erythrocyte distribution wid th standard deviationOrdered By: Kaylie Trujillo on 10-08-2023 Erythrocyte distribution width (RBC) [Entitic vol] 52.3 fL 35.1-43.9 [facility] Hematocrit Auto (Bld) [Volum e fraction]Ordered By: Kaylie Trujillo on 10-08-2023 Hematocrit (Bld) [Volume fraction] 39.6 % 37-47 [facility] Immature granulocytes/100 WB C Auto (Bld)Ordered By: Kaylie Trujillo on 10-08-2023 Immature granulocytes/100 WBC (Bld) 0.300 % 0.0-0.9 [facility] Comment on above: IG% - Immature Granu locytes (promyelocytes, myelocytes and metamyelocytes) > 1% indicates that a LEFT SHIFT is Present. Laboratory - Chemistry and C hemistry - challengeOrdered By: Kaylie Trujillo on 10-08-2023 CO2 [Moles/Vol] 27.0 mmol/L 21.0-32.0 [facility] Magnesium [Mass/Vol] 2.5 mg/dL 1.6-2.6 [facility] Urea nitrogen/Creatinine [Mass ratio] 27.6 mg/mg 10-20 [facility] Laboratory - Hematology and Cell countsOrdered By: Kaylie Trujillo on 10-08-2023 MCH (RBC) [Entitic mass] 26.5 pg 27.0-32.0 [facility] MCHC (RBC) [Mass/Vol] 30.6 g/dL 32-36 [facility] Nucleated RBC/100 WBC (Bld) [Ratio] 0 % 0-5 [facility] Platelet mean volume (Bld) [Entitic vol] 9.3 fL 6.2-12.0 [facility] Platelets (Bld) [#/Vol] 243 10*3/uL 150-450 [facility] No Panel InformationOrdered By: Kaylie Trujillo on 10-08-2023 Estimated GFR (MDRD) Amer 102 mL/min >60 [facility] Comment on above: GFR Calc Estimated GFR (MDRD) Non-Af Amer 85 mL/min >60 [facility] Comment on above: Non- GFR Calc RBC Auto (Bld) [#/Vol]Ordere d By: Kaylie Trujillo on 10-08-2023 RBC (Bld) [#/Vol] 4.57 10*6/uL 4.2-5.4 [facility] Serum or plasma calcium xiomara urement (mass/volume)Ordered By: Kaylie Trujillo on 10-08-2023 Calcium [Mass/Vol] 9.3 mg/dL 8.5-10.1 [facility] Serum or plasma creatinine m easurement (mass/volume)Ordered By: Kaylie Trujillo on 10-08-2023 Creatinine [Mass/Vol] 0.76 mg/dL 0.55-1.02 [facility] Comment on above: The validity of the calculated GFR & GFRAA in patients over 70 years has not been determined. Clinical correlation is essential. Serum or plasma urea nitroge n measurement (mass/volume)Ordered By: Kaylie Trujillo on 10-08-2023 Urea nitrogen [Mass/Vol] 21 mg/dL 7-18 [facility] Thin prep Papanicolaou smear with manual screeningOrdered By: Kaylieoskar Trujillo on 10-08-2023 Thin prep Papanicolaou smear with manual screening 4 5-15 [facility] CNPNon 10-04-2023 CNPN Telephone (AGPOB1) ----- TRENTON JACKSON ([id number]) 1970 [facility] Date Time Provider Department 10/04/23 DIYA MAY [facility] During your visit today, we recorded the following information about you: Tenzin Industrial Renderer Alyssa Ethel J 10/04/2023 2:40 PM Signed [...] which facility was the patient seen at: [facility] Was an appointment scheduled (Y/N): no-unable to schedule per tool Person calling if other than patient: [facility] Return call to if other than patient: Bryant Best contact number: [phone] Thank you, Melany Simon October 03, 2023 1:23 PM [place] [place] Ethel Shah 10/08/2023 3:47 PM Signed Left message for Bryant to get an update on [place]. Last message to her was instructions from Dr. May regarding giving her antibiotics, taking her to [place] emergency department if no improvements for a surgical consult. Thank you Ethel [facility] [place] [facility] Allergies As of Date: 10/04/2023 Noted [...] all medications X 4 days per her [id number]. Problem List As Of Date 10/04/2023 Noted Resolved Abdominal pain, other specified site [R10.9] 10/23/2012 Essential hypertension [I10] 02/20/2017 Pericardial cyst [Q24.8] 02/20/2017 Pericardial effusion [I31.39] 02/20/2017 Depression [F32.A] 02/20/2017 Anxiety [F41.9] 02/20/2017 Right-sided low back pain with right-sided scia*02/20/2017 Type 2 diabetes mellitus with complication, w (more content not included)... Normal [facility] CNPNon 10-02-2023 CNPN Telephone (AGPOB1) ----- TRENTON JACKSON ([id number]) 1970 [facility] Date Time Provider [facility] During your visit today, we recorded the following information about you: Tenzin [place] Ethel Shah 10/02/2023 12:11 PM Signed ----- [...] Date of : 1970 Previous Provider Seen: [facility] Body Part(s) Identified: r hip Diagnosis/Reason For Visit: post op Reason for the call/escalation: pt would like to schedule post op care center calling on behave of pt If reason for call/escalation is discharge from ED/ER or Hospital, which facility was the patient seen at: na Was an appointment scheduled (Y/N): n Person calling if other than patient: BRYANT [facility] Return call to if other than patient: bryant Best contact number: [phone] Thank you, Agata Das October 02, 2023 11:16 AM [facility] [place] Ethel Shah 10/03/2023 11:29 AM Signed Left message for Bryant - Dr. May does not want to schedule a follow up appointment at this time. He would like an update of her wound since she has started the antibiotic. If it has not changed, gotten better or is worse - he would like her taken to the [place] Emergency Department for a surgical consult. Left my direct phone number so Bryant can call to let me know status. Thank you Ethel [place] [facility] Allergies As of Date: 10/02/2023 Noted Allergy Reaction LATEX 01/18/2011 9 - Itching Comments: Red and dry cracking skin Date Reviewed: 09/05/2023 Reviewed by: Arminda Murillo RN - Fully Assessed Reason for Visit: Contact Center Call [[id number]] Patient Update [1405] PHYSICIAN INSTRUCTIONS [Other] Prescriptions as of 10/03/2023 [...] all medications X 4 days per her [id number]. Problem List As Of Date 10/02/2023 Noted Resolved Abdominal pain, other specified site [R10.9] 10/23/2012 Essential hypertension [I10] 02/20/2017 Pericardial cyst [Q24.8] 02/20/2017 Pericardial effusion [I31.39] 02/20 (more content not included)... Normal [facility] Absolute lymphocyte countOrd ered By: Kaylie Trujillo on 10-01-2023 Lymphocytes Auto (Unsp spec) [#/Vol] 1.59 10*3/uL 0.83-4.51 [facility] Automated lymphocyte count a s percentage of total leukocytesOrdered By: Kaylie Trujillo on 10-01-2023 Lymphocytes/100 WBC Auto (Unsp spec) 24.4 % 19-41 [facility] Basophil percentageOrdered B y: Kaylie Trujillo on 10-01-2023 Basophils/100 WBC (Bld) 1.1 % 0-1 [facility] Chloride [Moles/Vol] 108 mmol/L 98-107 [facility] Eosinophils/100 WBC (Bld) 2.6 % 0-5 [facility] Glucose [Mass/Vol] 123 mg/dL 74-106 [facility] Comment on above: Fasting Glucose resu lt from 100 to 125 mg/dL suggests IMPAIRED HOMEOSTASIS per A.D.A. criteria. Hemoglobin (Bld) [Mass/Vol] 11.7 g/dL 12.0-15.0 [facility] Monocytes/100 WBC (Bld) 8.8 % 0-10 [facility] Neutrophils (Bld) [#/Vol] 4.1 10*3/uL 2.0-7.7 [facility] Neutrophils/100 WBC (Bld) 62.6 % 47-70 [facility] Potassium [Moles/Vol] 5.4 mmol/L 3.5-5.1 [facility] Sodium [Moles/Vol] 138 mmol/L 136-145 [facility] WBC (Bld) [#/Vol] 6.5 10*3/uL 4.4-11.0 [facility] CNPNon 10-01-2023 [place] Telephone (AGPOB1) ----- TRENTON JACKSON ([id number]) 1970 F [facility] Date Time Provider Department 10/01/23 VRABEC, DIYA [...] all medications X 4 days per her [id number]. Problem List As Of Date 10/01/2023 Noted [...] Frailty [ (more content not included)... Normal [facility] Determination of erythrocyte mean corpuscular volume (MCV)Ordered By: Kaylie Trujillo on 10-01-2023 MCV (RBC) [Entitic vol] 86.3 fL 81-99 [facility] Erythrocyte distribution wid th ratioOrdered By: Kaylie Trujillo on 10-01-2023 Erythrocyte distribution width (RBC) [Ratio] 15.9 % 11.6-14.6 [facility] Erythrocyte distribution wid th standard deviationOrdered By: Kaylie Trujillo on 10-01-2023 Erythrocyte distribution width (RBC) [Entitic vol] 50.4 fL 35.1-43.9 [facility] Hematocrit Auto (Bld) [Volum e fraction]Ordered By: Kaylie Trujillo on 10-01-2023 Hematocrit (Bld) [Volume fraction] 37.8 % 37-47 [facility] Immature granulocytes/100 WB C Auto (Bld)Ordered By: Kaylie Trujillo on 10-01-2023 Immature granulocytes/100 WBC (Bld) 0.500 % 0.0-0.9 [facility] Comment on above: IG% - Immature Granu locytes (promyelocytes, myelocytes and metamyelocytes) > 1% indicates that a LEFT SHIFT is Present. Laboratory - Chemistry and C hemistry - challengeOrdered By: Kaylie Trujillo on 10-01-2023 CO2 [Moles/Vol] 27.0 mmol/L 21.0-32.0 [facility] Magnesium [Mass/Vol] 2.6 mg/dL 1.6-2.6 [facility] Urea nitrogen/Creatinine [Mass ratio] 24.1 mg/mg 10-20 [facility] Laboratory - Hematology and Cell countsOrdered By: Kaylie Trujillo on 10-01-2023 MCH (RBC) [Entitic mass] 26.7 pg 27.0-32.0 [facility] MCHC (RBC) [Mass/Vol] 31.0 g/dL 32-36 [facility] Nucleated RBC/100 WBC (Bld) [Ratio] 0 % 0-5 [facility] Platelet mean volume (Bld) [Entitic vol] 9.1 fL 6.2-12.0 [facility] Platelets (Bld) [#/Vol] 218 10*3/uL 150-450 [facility] No Panel InformationOrdered By: Kaylie Trujillo on 10-01-2023 C-Reactive Protein Extended Range 10.40 mg/L 0.0-3.0 [facility] Comment on above: C-Reactive Protein ( CRP) provides useful information for thediagnosis, therapy and monitoring of inflammatory processesand associated diseases. For the evaluation of Relative Riskfor Cardiovascular Disease, a High Sensitivity CRP (HSCRP)should be ordered. Estimated GFR (MDRD) Amer 83 mL/min >60 [facility] Comment on above: GFR Calc Estimated GFR (MDRD) Non-Af Amer 69 mL/min >60 [facility] Comment on above: Non- GFR Calc RBC Auto (Bld) [#/Vol]Ordere d By: Kaylie Trujillo on 10-01-2023 RBC (Bld) [#/Vol] 4.38 10*6/uL 4.2-5.4 [facility] Serum or plasma calcium xiomara urement (mass/volume)Ordered By: Kaylie Trujillo on 10-01-2023 Calcium [Mass/Vol] 9.0 mg/dL 8.5-10.1 [facility] Serum or plasma creatinine m easurement (mass/volume)Ordered By: Kaylie Trujillo on 10-01-2023 Creatinine [Mass/Vol] 0.91 mg/dL 0.55-1.02 [facility] Comment on above: The validity of the calculated GFR & GFRAA in patients over 70 years has not been determined. Clinical correlation is essential. Serum or plasma trough vanco mycin levelOrdered By: Kaylie Trujillo on 10-01-2023 Vancomycin trough [Mass/Vol] 24.8 ug/mL 5.0-15.0 [facility] Comment on above: VANCOMYCIN STANDARED DRUG THERAPY TROUGH LEVEL: 5.0 - 15.0 mg/L VANCOMYCIN HIGH INTENSITY THERAPY TROUGH LEVEL: 15.0 - 20.0 mg/L High Intensity therapy recommended for serious lifethreatening infections include:- Robudkskwr-Pdshiwzmfvvk-Yqbzofysy (Ventilator/Healtcare Associated)-Sepsis PLEASE CONTACT PHARMACY SERVICES (#[id number]) FOR INTERPRETATIONOF RESULTS. Serum or plasma urea nitroge n measurement (mass/volume)Ordered By: Kaylie Trujillo on 10-01-2023 Urea nitrogen [Mass/Vol] 22 mg/dL 7-18 [facility] Thin prep Papanicolaou smear with manual screeningOrdered By: Kaylie Trujillo on 10-01-2023 Thin prep Papanicolaou smear with manual screening 3 5-15 [facility] Serum or plasma trough vanco mycin levelOrdered By: Kaylie Trujillo on 09-29-2023 Vancomycin trough [Mass/Vol] 17.3 ug/mL 5.0-15.0 [facility] Comment on above: VANCOMYCIN STANDARED DRUG THERAPY TROUGH LEVEL: 5.0 - 15.0 mg/L VANCOMYCIN HIGH INTENSITY THERAPY TROUGH LEVEL: 15.0 - 20.0 mg/L High Intensity therapy recommended for serious lifethreatening infections include:- Vyljbejvcz-Uwmfosbjinqj-Ykdddhtan (Ventilator/Healtcare Associated)-Sepsis PLEASE CONTACT PHARMACY SERVICES (#[id number]) FOR INTERPRETATIONOF RESULTS. Adriana 09-27-2023 CNPN Telephone (AGPOB1) ----- TRENTON JACKSON ([id number]) 1970 F [facility] Date Time Provider Department 09/27[facility]23 [facility] During your visit today, we recorded the following information about you: Ethel Alonso 09/27/2023 3:54 PM Signed Received message from Stephania at [facility] stating [place] is forming an abscess the [...] a local orthopedic since she is in [place]. Dr. Posadas - [phone] He would like if the facility could [...] Fully Assessed Reason for Visit: Patient Question [2097] Abscess [1744] Prescriptions as of 09/27/2023 - [...] all medications X 4 days per her [id number]-46-1-2017. Problem List As Of Date 09/27/2023 Noted [...] Chronic systo (more content not included)... Normal [facility] Absolute lymphocyte countOrd ered By: Kaylie Trujillo on 09-24-2023 Lymphocytes Auto (Unsp spec) [#/Vol] 1.63 10*3/uL 0.83-4.51 [facility] Automated lymphocyte count a s percentage of total leukocytesOrdered By: Kaylie Trujillo on 09-24-2023 Lymphocytes/100 WBC Auto (Unsp spec) 21.3 % 19-41 [facility] Basophil percentageOrdered B y: Kaylie Trujillo on 09-24-2023 Basophils/100 WBC (Bld) 1.0 % 0-1 [facility] Chloride [Moles/Vol] 99 mmol/L 98-107 [facility] Eosinophils/100 WBC (Bld) 2.1 % 0-5 [facility] Glucose [Mass/Vol] 166 mg/dL 74-106 [facility] Comment on above: Fasting Glucose resu lt greater than or equal to 126 mg/dL suggests DIABETES MELLITUS per A.D.A. criteria. Hemoglobin (Bld) [Mass/Vol] 11.8 g/dL 12.0-15.0 [facility] Monocytes/100 WBC (Bld) 9.3 % 0-10 [facility] Neutrophils (Bld) [#/Vol] 5.1 10*3/uL 2.0-7.7 [facility] Neutrophils/100 WBC (Bld) 65.9 % 47-70 [facility] Potassium [Moles/Vol] 4.8 mmol/L 3.5-5.1 [facility] Sodium [Moles/Vol] 134 mmol/L 136-145 [facility] WBC (Bld) [#/Vol] 7.7 10*3/uL 4.4-11.0 [facility] Determination of erythrocyte mean corpuscular volume (MCV)Ordered By: Kaylie Trujillo on 09-24-2023 MCV (RBC) [Entitic vol] 84.3 fL 81-99 [facility] Erythrocyte distribution wid th ratioOrdered By: Kaylieoskar Trujillo on 09-24-2023 Erythrocyte distribution width (RBC) [Ratio] 15.5 % 11.6-14.6 [facility] Erythrocyte distribution wid th standard deviationOrdered By: Kaylie Trujillo on 09-24-2023 Erythrocyte distribution width (RBC) [Entitic vol] 46.9 fL 35.1-43.9 [facility] Hematocrit Auto (Bld) [Volum e fraction]Ordered By: Kaylie Trujillo on 09-24-2023 Hematocrit (Bld) [Volume fraction] 37.7 % 37-47 [facility] Immature granulocytes/100 WB C Auto (Bld)Ordered By: Kaylie Trujillo on 09-24-2023 Immature granulocytes/100 WBC (Bld) 0.400 % 0.0-0.9 [facility] Comment on above: IG% - Immature Granu locytes (promyelocytes, myelocytes and metamyelocytes) > 1% indicates that a LEFT SHIFT is Present. Laboratory - Chemistry and C hemistry - challengeOrdered By: Kaylie Trujillo on 09-24-2023 CO2 [Moles/Vol] 29.0 mmol/L 21.0-32.0 [facility] Magnesium [Mass/Vol] 2.8 mg/dL 1.6-2.6 [facility] Urea nitrogen/Creatinine [Mass ratio] 38.8 mg/mg 10-20 [facility] Laboratory - Hematology and Cell countsOrdered By: Kaylie Trujillo on 09-24-2023 MCH (RBC) [Entitic mass] 26.4 pg 27.0-32.0 [facility] MCHC (RBC) [Mass/Vol] 31.3 g/dL 32-36 [facility] Nucleated RBC/100 WBC (Bld) [Ratio] 0 % 0-5 [facility] Platelet mean volume (Bld) [Entitic vol] 9.4 fL 6.2-12.0 [facility] Platelets (Bld) [#/Vol] 316 10*3/uL 150-450 [facility] No Panel InformationOrdered By: Kaylie Trujillo on 09-24-2023 Estimated GFR (MDRD) Amer 82 mL/min >60 [facility] Comment on above: GFR Calc Estimated GFR (MDRD) Non-Af Amer 67 mL/min >60 [facility] Comment on above: Non- GFR Calc RBC Auto (Bld) [#/Vol]Ordere d By: Kaylie Trujillo on 09-24-2023 RBC (Bld) [#/Vol] 4.47 10*6/uL 4.2-5.4 [facility] Serum or plasma calcium xiomara urement (mass/volume)Ordered By: Kaylie Trujillo on 09-24-2023 Calcium [Mass/Vol] 8.8 mg/dL 8.5-10.1 [facility] Serum or plasma creatinine m easurement (mass/volume)Ordered By: Kaylie Trujillo on 09-24-2023 Creatinine [Mass/Vol] 0.93 mg/dL 0.55-1.02 [facility] Comment on above: The validity of the calculated GFR & GFRAA in patients over 70 years has not been determined. Clinical correlation is essential. Serum or plasma thyroid stim ulating hormone (TSH) measurement (units/volume)Ordered By: Kaylieoskar Trujillo on 09-24-2023 TSH Qn 6.61 uIU/mL 0.358-3.74 [facility] Serum or plasma urea nitroge n measurement (mass/volume)Ordered By: [facility] on 09-24-2023 Urea nitrogen [Mass/Vol] 36 mg/dL 7-18 [facility] Thin prep Papanicolaou smear with manual screeningOrdered By: Kaylieoskar Trujillo on 09-24-2023 Thin prep Papanicolaou smear with manual screening 6 5-15 [facility] Absolute lymphocyte countOrd ered By: Kaylieoskar Trujillo on 09-17-2023 Lymphocytes Auto (Unsp spec) [#/Vol] 1.47 10*3/uL 0.83-4.51 [facility] Automated lymphocyte count a s percentage of total leukocytesOrdered By: Kaylei Trujillo on 09-17-2023 Lymphocytes/100 WBC Auto (Unsp spec) 13.5 % 19-41 [facility] Basophil percentageOrdered B y: Kaylie Trujillo on 09-17-2023 Basophils/100 WBC (Bld) 0.9 % 0-1 [facility] Chloride [Moles/Vol] 96 mmol/L 98-107 [facility] Eosinophils/100 WBC (Bld) 1.3 % 0-5 [facility] Glucose [Mass/Vol] 134 mg/dL 74-106 [facility] Comment on above: Fasting Glucose resu lt greater than or equal to 126 mg/dL suggests DIABETES MELLITUS per A.D.A. criteria. Hemoglobin (Bld) [Mass/Vol] 12.8 g/dL 12.0-15.0 [facility] Monocytes/100 WBC (Bld) 5.7 % 0-10 [facility] Neutrophils (Bld) [#/Vol] 8.5 10*3/uL 2.0-7.7 [facility] Neutrophils/100 WBC (Bld) 78.0 % 47-70 [facility] Potassium [Moles/Vol] 4.5 mmol/L 3.5-5.1 [facility] Sodium [Moles/Vol] 133 mmol/L 136-145 [facility] WBC (Bld) [#/Vol] 10.9 10*3/uL 4.4-11.0 [facility] Determination of erythrocyte mean corpuscular volume (MCV)Ordered By: Kaylie Trujillo on 09-17-2023 MCV (RBC) [Entitic vol] 86.0 fL 81-99 [facility] Erythrocyte distribution wid th ratioOrdered By: Kaylie Trujillo on 09-17-2023 Erythrocyte distribution width (RBC) [Ratio] 15.2 % 11.6-14.6 [facility] Erythrocyte distribution wid th standard deviationOrdered By: Kaylie Trujillo on 09-17-2023 Erythrocyte distribution width (RBC) [Entitic vol] 46.5 fL 35.1-43.9 [facility] Hematocrit Auto (Bld) [Volum e fraction]Ordered By: Kaylie Trujillo on 09-17-2023 Hematocrit (Bld) [Volume fraction] 42.9 % 37-47 [facility] Immature granulocytes/100 WB C Auto (Bld)Ordered By: Kaylie Trujillo on 09-17-2023 Immature granulocytes/100 WBC (Bld) 0.600 % 0.0-0.9 [facility] Comment on above: IG% - Immature Granu locytes (promyelocytes, myelocytes and metamyelocytes) > 1% indicates that a LEFT SHIFT is Present. Laboratory - Chemistry and C hemistry - challengeOrdered By: Kaylie Trujillo on 09-17-2023 CO2 [Moles/Vol] 35.0 mmol/L 21.0-32.0 [facility] Magnesium [Mass/Vol] 2.9 mg/dL 1.6-2.6 [facility] Urea nitrogen/Creatinine [Mass ratio] 26.9 mg/mg 10-20 [facility] Laboratory - Hematology and Cell countsOrdered By: Kaylie Trujillo on 09-17-2023 MCH (RBC) [Entitic mass] 25.7 pg 27.0-32.0 [facility] MCHC (RBC) [Mass/Vol] 29.8 g/dL 32-36 [facility] Nucleated RBC/100 WBC (Bld) [Ratio] 0 % 0-5 [facility] Platelet mean volume (Bld) [Entitic vol] 9.6 fL 6.2-12.0 [facility] Platelets (Bld) [#/Vol] 399 10*3/uL 150-450 [facility] No Panel InformationOrdered By: Kaylie Trujillo on 09-17-2023 Estimated GFR (MDRD) Amer 61 mL/min >60 [facility] Comment on above: GFR Calc Estimated GFR (MDRD) Non-Af Amer 51 mL/min >60 [facility] Comment on above: Non- GFR Calc RBC Auto (Bld) [#/Vol]Ordere d By: Kaylie Trujillo on 09-17-2023 RBC (Bld) [#/Vol] 4.99 10*6/uL 4.2-5.4 [facility] Serum or plasma calcium xiomara urement (mass/volume)Ordered By: Kaylie Trujillo on 09-17-2023 Calcium [Mass/Vol] 9.2 mg/dL 8.5-10.1 [facility] Serum or plasma creatinine m easurement (mass/volume)Ordered By: Kaylie Trujillo on 09-17-2023 Creatinine [Mass/Vol] 1.19 mg/dL 0.55-1.02 [facility] Comment on above: The validity of the calculated GFR & GFRAA in patients over 70 years has not been determined. Clinical correlation is essential. Serum or plasma urea nitroge n measurement (mass/volume)Ordered By: Kaylie Trujillo on 09-17-2023 Urea nitrogen [Mass/Vol] 32 mg/dL 7-18 [facility] Thin prep Papanicolaou smear with manual screeningOrdered By: Kaylie Trujillo on 09-17-2023 Thin prep Papanicolaou smear with manual screening 2 10-16 [facility] 09-12-2023 CNPN Telephone (AGPOB1) ----- TRENTON JACKSON ([id number]) 1970 [facility] Date Time Provider Department 09/12/23 DIYA MAY CARLOS During your visit today, we recorded the following information about you: Ethel Alonso 09/12/2023 9:24 AM Signed ----- Message from Evelyne Madsen sent at 09/11/2023 2:07 PM EDT ----- Regarding: Ustsn-Qhrqxc-wd follow up post op- hip fracture Subject [...] which facility was the patient seen at: [facility] Was an appointment scheduled (Y/N): N/A Person calling if other than patient: REHAB [facility] Return call to if other than patient: REHAB Best contact number: [phone] Thank you, Evelyne Madsen September 11, 2023 2:07 PM Ethel Alonso 09/14/2023 2:38 PM Signed Left a message for Nurse Mgr Bryant Ruiz at the rehab facility ([phone]) that we do not need to schedule an appointment at this time but we would like to have a disc with an x-ray of [place]'s pelvis for review 09/17/23. Thank you Ethel [facility] [place] [facility] Allergies As of Date: 09/12/2023 Noted [...] all medications X 4 days per her [id number]-72-0-2017. Problem List As Of Date 09/12/2023 Noted Resolved Abdominal pain, other specified site [R10.9] 10/23/2012 Essential hypertension [I10] 02/20/2017 Pericardial cyst [Q24.8] 02/20/2017 Pericardial effusion [I31.39] 02/20/2017 Depression [F32.A] 02/20/2017 Anxiety [F41.9] 02/20/2017 Right-sided low back pain with right-sided scia*02/20/2017 Type 2 diabetes mellitus with complication, wit*03/07/2017 Chest pain [R07.9] 11/30/2017 Dysl (more content not included)... Normal [facility] Absolute lymphocyte countOrd ered By: Kaylie Trujillo on 09-10-2023 Lymphocytes Auto (Unsp spec) [#/Vol] 1.61 10*3/uL 0.83-4.51 [facility] Automated lymphocyte count a s percentage of total leukocytesOrdered By: Kaylie Trujillo on 09-10-2023 Lymphocytes/100 WBC Auto (Unsp spec) 25.0 % 19-41 [facility] Basophil percentageOrdered B y: Kaylie Trujillo on 09-10-2023 Basophils/100 WBC (Bld) 0.8 % 0-1 [facility] Chloride [Moles/Vol] 97 mmol/L 98-107 [facility] Cholesterol [Mass/Vol] 140 mg/dL <200 [facility] Comment on above: <200 mg/dL Desirable 200-240 mg/dL Borderline >240 mg/dL High Risk Eosinophils/100 WBC (Bld) 0.8 % 0-5 [facility] Glucose [Mass/Vol] 150 mg/dL 74-106 [facility] Comment on above: Fasting Glucose resu lt greater than or equal to 126 mg/dL suggests DIABETES MELLITUS per A.D.A. criteria. Hemoglobin (Bld) [Mass/Vol] 11.6 g/dL 12.0-15.0 [facility] Monocytes/100 WBC (Bld) 10.6 % 0-10 [facility] Neutrophils (Bld) [#/Vol] 4.0 10*3/uL 2.0-7.7 [facility] Neutrophils/100 WBC (Bld) 62.3 % 47-70 [facility] Potassium [Moles/Vol] 3.7 mmol/L 3.5-5.1 [facility] Sodium [Moles/Vol] 137 mmol/L 136-145 [facility] Triglyceride [Mass/Vol] 227 mg/dL <199 [facility] Comment on above: The drugs N-Acetylcy steine and Metamizole may falsely depress this assay.Serum Triglycerides Reference Interval Normal <150 mg/dL Borderline high 150 - 199 mg/dL High 200 - 499 mg/dL Very High > or = 500 mg/dL WBC (Bld) [#/Vol] 6.4 10*3/uL 4.4-11.0 [facility] Determination of erythrocyte mean corpuscular volume (MCV)Ordered By: Kaylie Trujillo on 09-10-2023 MCV (RBC) [Entitic vol] 82.4 fL 81-99 [facility] Erythrocyte distribution wid th ratioOrdered By: Kaylie Trujillo on 09-10-2023 Erythrocyte distribution width (RBC) [Ratio] 14.3 % 11.6-14.6 [facility] Erythrocyte distribution wid th standard deviationOrdered By: Kaylie Trujillo on 09-10-2023 Erythrocyte distribution width (RBC) [Entitic vol] 42.5 fL 35.1-43.9 [facility] Hematocrit Auto (Bld) [Volum e fraction]Ordered By: Kaylie Trujillo on 09-10-2023 Hematocrit (Bld) [Volume fraction] 36.6 % 37-47 [facility] Immature granulocytes/100 WB C Auto (Bld)Ordered By: Kaylieoskar Trujillo on 09-10-2023 Immature granulocytes/100 WBC (Bld) 0.500 % 0.0-0.9 [facility] Comment on above: IG% - Immature Granu locytes (promyelocytes, myelocytes and metamyelocytes) > 1% indicates that a LEFT SHIFT is Present. Laboratory - Chemistry and C hemistry - challengeOrdered By: Kaylie Trujillo on 09-10-2023 Cholesterol in HDL [Mass/Vol] 31 mg/dL >40 [facility] Comment on above: The drugs N-Acetylcy steine and Metamizole may falsely depress this assay. Reference Range HDL <40 mg/dL Low HDL Cholesterol HDL >or= 60 mg/dL High HDL Cholesterol Cholesterol in LDL [Mass/Vol] 64 mg/dL 0-130 [facility] CO2 [Moles/Vol] 31.0 mmol/L 21.0-32.0 [facility] Cobalamin (Vitamin B12) [Mass/Vol] 300 pg/mL 211-911 [facility] Magnesium [Mass/Vol] 1.8 mg/dL 1.6-2.6 [facility] Urea nitrogen/Creatinine [Mass ratio] 20.4 mg/mg 10-20 [facility] Laboratory - Hematology and Cell countsOrdered By: Kaylie Trujillo on 09-10-2023 MCH (RBC) [Entitic mass] 26.1 pg 27.0-32.0 [facility] MCHC (RBC) [Mass/Vol] 31.7 g/dL 32-36 [facility] Nucleated RBC/100 WBC (Bld) [Ratio] 0 % 0-5 [facility] Platelet mean volume (Bld) [Entitic vol] 9.8 fL 6.2-12.0 [facility] Platelets (Bld) [#/Vol] 262 10*3/uL 150-450 [facility] No Panel InformationOrdered By: Kaylie Trujillo on 09-10-2023 Estimated GFR (MDRD) Amer 92 mL/min >60 [facility] Comment on above: GFR Calc Estimated GFR (MDRD) Non-Af Amer 76 mL/min >60 [facility] Comment on above: Non- GFR Calc Vitamin D 25-Hydroxy 18.5 ng/mL [facility] Comment on above: Vitamin D 25(OH) Sta tus Range Deficiency <20 ng/mL (50nmol/L) Insufficiency 20 - 30 ng/mL (50 - 75 nmol/L) Sufficiency 30 - 100 ng/mL (75 - 250 nmol/L) Toxicity >100 ng/mL (>250 nmol/L) VLDL Cholesterol 45 mg/dL 5-40 [facility] RBC Auto (Bld) [#/Vol]Ordere d By: Kaylie Trujillo on 09-10-2023 RBC (Bld) [#/Vol] 4.44 10*6/uL 4.2-5.4 [facility] Serum or plasma calcium xiomara urement (mass/volume)Ordered By: Kaylie Trujillo on 09-10-2023 Calcium [Mass/Vol] 8.7 mg/dL 8.5-10.1 [facility] Serum or plasma creatinine m easurement (mass/volume)Ordered By: Kaylie Trujillo on 09-10-2023 Creatinine [Mass/Vol] 0.83 mg/dL 0.55-1.02 [facility] Comment on above: The validity of the calculated GFR & GFRAA in patients over 70 years has not been determined. Clinical correlation is essential. Serum or plasma thyroid stim ulating hormone (TSH) measurement (units/volume)Ordered By: Kaylie Trujillo on 09-10-2023 TSH Qn 5.60 uIU/mL 0.358-3.74 [facility] Serum or plasma urea nitroge n measurement (mass/volume)Ordered By: Kaylie Trujillo on 09-10-2023 Urea nitrogen [Mass/Vol] 17 mg/dL 7-18 [facility] Thin prep Papanicolaou smear with manual screeningOrdered By: Kaylie Trujillo on 09-10-2023 Thin prep Papanicolaou smear with manual screening 9 5-15 [facility] Whole blood hemoglobin A1c/t otal hemoglobin ratio (mass fraction)Ordered By: Kaylie Trujillo on 09-10-2023 HbA1c (Bld) [Mass fraction] 10.8 % 3.8-5.6 [facility] Comment on above: Normal < 5.7 % Predi abetic 5.7 - 6.4 % Diabetic >or= 6.5 % Please note range changes. CASE MANAGEMon 09-07-2023 CASE MANAGEM HNO ID: [id number] Author: JAMESON BARON RN Service: ? Author Type: Registered Nurse Type: Care Mgt Progress Note Filed: 09/07/2023 14:42 Note Text: CARE MANAGEMENT DISCHARGE NOTE SERVICE DATE: September 07, 2023 SERVICE TIME: 2:41 PM Admission Date: 09/02/2023 LOS: 5 days Discharge Arrangement Discharge Arrangement: Prison Facility Services Arranged Provider Name: [facility] Caregiver Assessment Caregiver is ready, willing and able to meet the patient's needs as recommended by the inter-professional team: Yes Name of Caregiver: SNF Transportation Arrangements Transportation Arrangements: Ambulance Transportation Agency and Phone #:: [facility] ( [facility] ) [phone] / [phone] Date of Trip: 09/07/23 Time of Trip: 1700 Type of Service: BLS Non-emergency Is Patient Medicaid Pending?: No Motion Picture Cameraman Location: [facility] Destination: [facility] Financial Care Management Responsibility: None Handoff Communication: Handoff to: Other Caregiver Other Caregiver Name/Phone: nurse to call report Additional Information: Patient to discharge to [facility]. [facility] transport via cot set up for patient at 5PM. Patient and nurse made aware. Transport folder complete and on the chart. SIGNATURE: Jameson Baron RN PATIENT NAME: Trenton Jackson DATE: September 07, 2023 TIME: 2:41 PM CONTACT #: [phone] [facility] CARRIEDSdon 09-07-2023 [facility] HNO ID: [id number] Author: FREDA MACEDO MD Service: General Surgery [...] Doctor: Freda Macedo MD Primary Care Provider: [facility] My Medical Team Members: Treatment Team: Attending Provider: Freda Macedo MD Consulting: Jair Gutierrez MD Consulting: Diya May MD MY CONDITION AT DISCHARGE: Stable REASON I WAS IN THE HOSPITAL: Fall SUMMARY OF WHAT HAPPENED WHILE I WAS IN THE HOSPITAL: Ms. Jackson was admitted at [facility] on 09/02/2023 following a fall. She was found to have the following acute traumatic injuries: 1. Right-sided acute comminuted intertrochanteric proximal femur fracture She was evaluated by orthopedic who recommended surgical fixation of her femur fracture, which she underwent on 09/03/2023. She was evaluated by physical and occupational therapy who recommended a Prison Facility for her ongoing recovery. Ms. Jackson [...] disorder, mild, abuse Coronary artery disease involving [place] coronary artery of [place] heart without angina pectoris Trauma Fall Resolved Problems: * No resolved hospital problems. * OPERATIONS PERFORMED WHILE IN THE HOSPITAL: 09/03/2023 - Right hip CMN (Dr. May) IMPORTANT TEST/PROCEDURES: No procedures performed TEST RESULTS NOT AVAILABLE AT THIS TIME: No pending results Discharge Disposition Discharge Disposition: Prison Facility - Less than 30 Days Activity When You Leave the Hospital May bathe and shower Resume pre-hospital activity Diet Instructions Resume your pre-hospital diet For Pain When You Leave the Hospital Continue taking previously prescribed pain medications as directed If you become constipated, you may use any mblb-ccl-ukcsbih treatment such as Milk of Magnesia, Sennakot, Prune Juice, Suppositories, etc. in addition to the stool softener/fiber supplement Use the dispensed medication (see prescription) You should use an tvuj-rjz-ydozfaa stool softener (Docusate sodium) and/or a fiber [...] call for appointment?: Yes Diya May MD [phone] [address] PCP Requested Referral Follow-Up Appointment Please discuss [...] Patient/Parents to call for appointment?: [facility] [phone] [facility] [address] [facility] [phone] (more content not included)... Normal [facility] ED PROV NOTEon 09-07-2023 ED PROV NOTE HNO ID: [id number] Author: MIRNA SAHU MD Service: Emergency Medicine [...] in her bathroom. She was seen at [facility] where she was noted to have [...] Normal ra (more content not included)... Normal [facility] Basic metabolic 2000 panelon 09-06-2023 Anion gap [Moles/Vol] 9 mmol/L Normal 9-18 [facility] Comment on above: Order Comment: Eileeni cecily Type: BLOOD SPECIMEN Ordering Facility: [facility] Address: [address] [place] [address] Performed By: #### 5 8410-2 #### [facility] CLIA [id number] [address] [place] [address] [place] Calcium [Mass/Vol] 8.4 mg/dL Low 8.5-10.2 [facility] Comment on above: Order Comment: Radha tony Type: BLOOD SPECIMEN Ordering Facility: [facility] Address: [address] [place] [address] Performed By: #### 5 8410-2 #### [facility] CLIA [id number] [address] [place] [address] [place] Chloride [Moles/Vol] 97 mmol/L Normal 97-105 [facility] Comment on above: Order Comment: Speci men Type: BLOOD SPECIMEN Ordering Facility: [facility] Address: [address] [place] [address] Performed By: #### 5 8410-2 #### [facility] CLIA [id number] [address] [place] [address] [place] CO2 [Moles/Vol] 29 mmol/L Normal 22-30 [facility] Comment on above: Order Comment: Speckam cecily Type: BLOOD SPECIMEN Ordering Facility: [facility] Address: [address] [place] [address] Performed By: #### 5 8410-2 #### [facility] CLIA [id number] [address] [place] Creatinine [Mass/Vol] 0.69 mg/dL Normal 0.58-0.96 [facility] Comment on above: Order Comment: Eileenkam tony Type: BLOOD SPECIMEN Ordering Facility: [facility] Address: [address] [place] [address] Performed By: #### 5 8410-2 #### [facility] CLIA [id number] [address] Creatinine and Glomerular filtration rate.predicted panel (S/P/Bld) 105 mL/min/1.73m??? Normal >=60 [facility] Comment on above: Order Comment: Eileenkam tony Type: BLOOD SPECIMEN Ordering Facility: [facility] Address: [address] [place] [address] Result Comment: Crissy mated Glomerular Filtration Rate [...] GFR. Performed By: #### 5 8410-2 #### [facility] CLIA [id number] [address] [place] Glucose [Mass/Vol] 120 mg/dL High 74-99 [facility] Comment on above: Order Comment: Radha tony Type: BLOOD SPECIMEN Ordering Facility: [facility] Address: [address] [place] [address] Result Comment: The [place] [employer] (ADA) provides guidance for cutoff [...] Standards of Medical Care in Diabetes 2016, [place] [employer]. Diabetes Care. 2016.39(Suppl 1). Performed By: #### 5 8410-2 #### [facility] CLIA [id number] [address] STATES OF [facility] Potassium [Moles/Vol] 3.8 mmol/L Normal 3.7-5.1 [facility] Comment on above: Order Comment: Speci men Type: BLOOD SPECIMEN Ordering Facility: [facility] Address: [address] [place] [address] Performed By: #### 5 8410-2 #### [facility] CLIA [id number] [address] STATES [facility] Sodium [Moles/Vol] 135 mmol/L Low 136-144 [facility] Comment on above: Order Comment: Speci men Type: BLOOD SPECIMEN Ordering Facility: [facility] Address: [address] [place] [address] Performed By: #### 5 8410-2 #### [facility] CLIA [id number] [address] Urea nitrogen [Mass/Vol] 13 mg/dL Normal 7-21 [facility] Comment on above: Order Comment: Speci men Type: BLOOD SPECIMEN Ordering Facility: [facility] Address: [address] [place] [address] Performed By: #### 5 8410-2 #### [facility] CLIA [id number] [address] [place] CBC panel Auto (Bld)on 09-05 Erythrocyte distribution width (RBC) [Ratio] 14.1 % Normal 11.5-15.0 [facility] Comment on above: Order Comment: Speci men Type: BLOOD SPECIMEN Ordering Facility: [facility] Address: [address] [place] [address] Performed By: #### 5 8410-2 #### [facility] CLIA [id number] [address] Hematocrit (Bld) [Volume fraction] 31.4 % Low 36.0-46.0 [facility] Comment on above: Order Comment: Speci men Type: BLOOD SPECIMEN Ordering Facility: [facility] Address: [address] [place] [address] Performed By: #### 5 8410-2 #### [facility] CLIA [id number] [address] OF [facility] Hemoglobin (Bld) [Mass/Vol] 10.1 g/dL Low 11.5-15.5 [facility] Comment on above: Order Comment: Speci men Type: BLOOD SPECIMEN Ordering Facility: [facility] Address: [address] [place] [address] Performed By: #### 5 8410-2 #### [facility] CLIA [id number] [address] MCH (RBC) [Entitic mass] 26.5 pg Normal 26.0-34.0 [facility] Comment on above: Order Comment: Speci men Type: BLOOD SPECIMEN Ordering Facility: [facility] Address: [address] [place] [address] Performed By: #### 5 8410-2 #### [facility] CLIA [id number] [address] [place] MCHC (RBC) [Mass/Vol] 32.2 g/dL Normal 30.5-36.0 [facility] Comment on above: Order Comment: Speci men Type: BLOOD SPECIMEN Ordering Facility: [facility] Address: [address] [place] [address] Performed By: #### 5 8410-2 #### [facility] CLIA [id number] [address] [place] [address] [place] MCV (RBC) [Entitic vol] 82.4 fL Normal 80.0-100.[address] [facility] Comment on above: Order Comment: Speci men Type: BLOOD SPECIMEN Ordering Facility: [facility] Address: [address] [place] [address] Performed By: #### 5 8410-2 #### [facility] CLIA [id number] [address] [place] Nucleated RBC (Bld) [#/Vol] 10*3/uL Normal <0.01 [facility] Comment on above: Order Comment: Speci men Type: BLOOD SPECIMEN Ordering Facility: [facility] Address: [address] [place] [address] Performed By: #### 5 8410-2 #### [facility] CLIA [id number] [address] Platelet mean volume (Bld) [Entitic vol] 10.2 fL Normal 9.0-12.7 [facility] Comment on above: Order Comment: Speci men Type: BLOOD SPECIMEN Ordering Facility: [facility] Address: [address] [place] [address] Performed By: #### 5 8410-2 #### [facility] CLIA [id number] [address] Platelets (Bld) [#/Vol] 135 10*3/uL Low 150-400 [facility] Comment on above: Order Comment: Speci men Type: BLOOD SPECIMEN Ordering Facility: [facility] Address: [address] [place] [address] Result Comment: No c lot detected. Performed By: #### 5 8410-2 #### [facility] CLIA [id number] [address] [place] RBC (Bld) [#/Vol] 3.81 10*6/uL Low 3.90-5.20 [facility] Comment on above: Order Comment: Speci men Type: BLOOD SPECIMEN Ordering Facility: [facility] Address: [address] [place] [address] Performed By: #### 5 8410-2 #### [facility] CLIA [id number] [address] [place] [address] [facility] WBC (Bld) [#/Vol] 9.50 10*3/uL Normal 3.70-11.00 [facility] Comment on above: Order Comment: Speci men Type: BLOOD SPECIMEN Ordering Facility: [facility] Address: [facility] [place] [address] Performed By: #### 5 8410-2 #### [facility] CLIA [id number] [address] [place] [address] [facility] THERAPY NTon 09-06-2023 THERAPY NT HNO ID: [id number] Author: EILEEN MACIAS, PT Service: Physical Therapy Author Type: Physical Therapist Type: Therapy (PT/OT/Speech/Resp) Filed: 09/06/2023 13:17 Note Text: Physical Therapy Treatment Summary SERVICE DATE: 09/06/2023 SERVICE TIME: 1030 to 1053 ROOM: [place] [address] PT 6 Clicks Score: 10 DISCHARGE RECOMMENDATIONS [...] Required With: Transportation Patient reports being independent [employer], 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 SUBJECTIVE Agreeable to PT, reports increased pain this session. Emotional, tearful. THERAPY DIAGNOSIS Reduced mobility-other, Muscle Weakness (generalized), Unsteadiness on feet, Abnormalities of gait and mobility-other, General symptoms and signs-other, Difficulty walking-musculoskeletal TREATMENT INTERVENTIONS Therapeutic Activity (88832), Therapeutic Exercise (60577) Timed Code Treatment (minutes): 23 Skilled Treatment Time (minutes): 23 Therapeutic Exercise (71100) Treatment Minutes: 13 $ Therapeutic Exercise (89269) Billed Units: 1 unit Patient completed right hip fracture protocol (ankle pump, quad set, gluteal set, heel slide, hip abd/add to neutral, short arc quad, hip adductor squeeze) x 10 reps with min/mod amount of assist. Patient reports moderate/severe pain. Patient set up with ice to surgical hip and elevated lower extremity as needed. Therapeutic Activity (90043) Treatment Minutes: 10 $ Therapeutic Activity (34370) Billed Units: 1 unit Rolling for hygiene, [...] September 06, 2023 TIME: 1:14 PM Normal [facility] Basic metabolic 2000 panelon 09-05-2023 Anion gap [Moles/Vol] 9 mmol/L Normal 9-18 [facility] Comment on above: Order Comment: Speci men Type: BLOOD SPECIMEN Ordering Facility: [facility] Address: [address] [place] [address] Performed By: #### 2 4321-2 #### [facility] CLIA [id number] [address] [place] [address] [place] Calcium [Mass/Vol] 8.5 mg/dL Normal 8.5-10.2 [facility] Comment on above: Order Comment: Speci men Type: BLOOD SPECIMEN Ordering Facility: [facility] Address: [address] [place] [address] Performed By: #### 2 4321-2 #### [facility] CLIA [id number] [address] [place] [address] [place] Chloride [Moles/Vol] 96 mmol/L Low 97-105 [facility] Comment on above: Order Comment: Speci men Type: BLOOD SPECIMEN Ordering Facility: [facility] Address: [address] [place] [address] Performed By: #### 2 4321-2 #### [facility] CLIA [id number] [address] [place] [address] [place] CO2 [Moles/Vol] 28 mmol/L Normal 22-30 [facility] Comment on above: Order Comment: Speci men Type: BLOOD SPECIMEN Ordering Facility: [facility] Address: [address] [place] [address] Performed By: #### 2 4321-2 #### [facility] CLIA [id number] [address] [place] [address] [place] Creatinine [Mass/Vol] 0.63 mg/dL Normal 0.58-0.96 [facility] Comment on above: Order Comment: Speci men Type: BLOOD SPECIMEN Ordering Facility: [facility] Address: [address] [place] [address] Performed By: #### 2 4321-2 #### [facility] CLIA [id number] [address] [place] [address] [place] Creatinine and Glomerular filtration rate.predicted panel (S/P/Bld) 107 mL/min/1.73m??? Normal >=60 [facility] Comment on above: Order Comment: Radha tony Type: BLOOD SPECIMEN Ordering Facility: [facility] Address: [address] [place] [address] Result Comment: Crissy mated Glomerular Filtration Rate [...] GFR. Performed By: #### 2 4321-2 #### [facility] CLIA [id number] [address] [place] [address] [place] Glucose [Mass/Vol] 110 mg/dL High 74-99 [facility] Comment on above: Order Comment: Radha tony Type: BLOOD SPECIMEN Ordering Facility: [facility] Address: [address] [place] [address] Result Comment: The [place] [employer] (ADA) provides guidance for cutoff [...] Standards of Medical Care in Diabetes 2016, [place] [employer]. Diabetes Care. 2016.39(Suppl 1). Performed By: #### 2 4321-2 #### [facility] CLIA [id number] [address] [place] [address] [place] Potassium [Moles/Vol] 3.8 mmol/L Normal 3.7-5.1 [facility] Comment on above: Order Comment: Speci men Type: BLOOD SPECIMEN Ordering Facility: [facility] Address: [address] [place] [address] Performed By: #### 2 4321-2 #### [facility] CLIA [id number] [address] STATES OF [facility] Sodium [Moles/Vol] 133 mmol/L Low 136-144 [facility] Comment on above: Order Comment: Speci men Type: BLOOD SPECIMEN Ordering Facility: [facility] Address: [address] [place] [address] Performed By: #### 2 4321-2 #### [facility] CLIA [id number] [address] STATES OF [facility] Urea nitrogen [Mass/Vol] 13 mg/dL Normal 7-21 [facility] Comment on above: Order Comment: Speci men Type: BLOOD SPECIMEN Ordering Facility: [facility] Address: [address] [place] [address] Performed By: #### 2 4321-2 #### [facility] CLIA [id number] [address] STATES OF [facility] CBC panel Auto (Bld)on 09-04 Erythrocyte distribution width (RBC) [Ratio] 14.0 % Normal 11.5-15.0 [facility] Comment on above: Order Comment: Speci men Type: BLOOD SPECIMEN Ordering Facility: [facility] Address: [address] [place] [address] Performed By: #### 5 8410-2 #### [facility] CLIA [id number] [address] Hematocrit (Bld) [Volume fraction] 35.1 % Low 36.0-46.0 [facility] Comment on above: Order Comment: Speci men Type: BLOOD SPECIMEN Ordering Facility: [facility] Address: [address] [place] [address] Performed By: #### 5 8410-2 #### [facility] CLIA [id number] [address] Hemoglobin (Bld) [Mass/Vol] 11.5 g/dL Normal 11.5-15.5 [facility] Comment on above: Order Comment: Speci men Type: BLOOD SPECIMEN Ordering Facility: [facility] Address: [address] [place] [address] Performed By: #### 5 8410-2 #### [facility] CLIA [id number] [address] MCH (RBC) [Entitic mass] 26.7 pg Normal 26.0-34.0 [facility] Comment on above: Order Comment: Speci men Type: BLOOD SPECIMEN Ordering Facility: [facility] Address: [address] [place] [address] Performed By: #### 5 8410-2 #### [facility] CLIA [id number] [address] MCHC (RBC) [Mass/Vol] 32.8 g/dL Normal 30.5-36.0 [facility] Comment on above: Order Comment: Speci men Type: BLOOD SPECIMEN Ordering Facility: [facility] Address: [address] [place] [address] Performed By: #### 5 8410-2 #### [facility] CLIA [id number] [address] MCV (RBC) [Entitic vol] 81.4 fL Normal 80.0-100.0 [facility] Comment on above: Order Comment: Speci men Type: BLOOD SPECIMEN [facility] [facility] Address: [address] [place] [address] Performed By: #### 5 8410-2 #### [facility] CLIA [id number] [address] Nucleated RBC (Bld) [#/Vol] 10*3/uL Normal <0.01 [facility] Comment on above: Order Comment: Speci men Type: BLOOD SPECIMEN Ordering Facility: [facility] Address: [address] [place] [address] Performed By: #### 5 8410-2 #### [facility] CLIA [id number] [address] Platelet mean volume (Bld) [Entitic vol] 10.5 fL Normal 9.0-12.7 [facility] Comment on above: Order Comment: Speci men Type: BLOOD SPECIMEN Ordering Facility: [facility] Address: [address] [place] [address] Performed By: #### 5 8410-2 #### [facility] CLIA [id number] [address] Platelets (Bld) [#/Vol] 111 10*3/uL Low 150-400 [facility] Comment on above: Order Comment: Speci men Type: BLOOD SPECIMEN Ordering Facility: [facility] Address: [address] [place] [address] Result Comment: No c lot detected. Performed By: #### 5 8410-2 #### [facility] CLIA [id number] [address] RBC (Bld) [#/Vol] 4.31 10*6/uL Normal 3.90-5.20 [facility] Comment on above: Order Comment: Speci men Type: BLOOD SPECIMEN Ordering Facility: [facility] Address: [address] [place] [address] Performed By: #### 5 8410-2 #### [facility] CLIA [id number] [address] [place] WBC (Bld) [#/Vol] 13.47 10*3/uL High 3.70-11.00 [facility] Comment on above: Order Comment: Speci men Type: BLOOD SPECIMEN Ordering Facility: [facility] Address: [address] [place] [address] Performed By: #### 5 8410-2 #### [facility] CLIA [id number] [address] THERAPY NTon 09-05-2023 THERAPY NT HNO ID: [id number] Author: EILEEN MACIAS, PT Service: Physical Therapy Author Type: Physical Therapist Type: Therapy (PT/OT/Speech/Resp) Filed: 09/05/2023 13:25 Note Text: Physical Therapy Treatment Summary SERVICE DATE: 09/05/2023 SERVICE TIME: 1039 to 1102 ROOM: [place] [address] PT 6 Clicks Score: 10 DISCHARGE RECOMMENDATIONS [...] Required With: Transportation Patient reports being independent [employer], 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 SUBJECTIVE Pleasant and agreeable to PT. THERAPY DIAGNOSIS Reduced mobility-other, Muscle Weakness (generalized), Unsteadiness on feet, Abnormalities of gait and mobility-other, General symptoms and signs-other, Difficulty walking-musculoskeletal TREATMENT INTERVENTIONS Therapeutic Exercise (50294), Therapeutic Activity (07554) Timed Code Treatment (minutes): 23 Skilled Treatment Time (minutes): 23 Therapeutic Exercise (18690) Treatment Minutes: 12 $ Therapeutic Exercise (26062) Billed Units: 1 unit Patient completed right hip fracture protocol (ankle pump, quad set, gluteal set, heel slide, hip abd/add to neutral, short arc quad, long arc quad, hip adductor squeeze) x 10 reps with min amount of assist. Patient reports moderate pain. Patient set up with ice to surgical hip and elevated lower extremity as needed. Therapeutic Activity (39888) Treatment Minutes: 11 $ Therapeutic Activity (84726) Billed Units: 1 unit TRAINING AND EDUCATION [...] September 05, 2023 TIME: 1:23 PM Normal [facility] ANES POSTPROC EVALon 024 ANES POSTPROC EVAL HNO ID: [id number] Author: MOODY HODGE DO Service: Anesthesiology Author [...] November 02, 2023 TIME: 10:25 AM CSN: [id number] Normal [facility] Basic metabolic 2000 panelon 09-04-2023 Anion gap [Moles/Vol] 9 mmol/L Normal 9-18 [facility] Comment on above: Order Comment: Speci men Type: BLOOD SPECIMEN Ordering Facility: [facility] Address: [address] [place] [address] Performed By: #### 2 4321-2 #### [facility] CLIA [id number] [address] [place] [address] [place] Calcium [Mass/Vol] 8.5 mg/dL Normal 8.5-10.2 [facility] Comment on above: Order Comment: Speci men Type: BLOOD SPECIMEN Ordering Facility: [facility] Address: [address] [place] [address] Performed By: #### 2 4321-2 #### [facility] CLIA [id number] [address] [facility] Chloride [Moles/Vol] 97 mmol/L Normal 97-105 [facility] Comment on above: Order Comment: Speci men Type: BLOOD SPECIMEN Ordering Facility: [facility] Address: [address] [place] [address] Performed By: #### 2 4321-2 #### [facility] CLIA [id number] [address] [place] CO2 [Moles/Vol] 30 mmol/L Normal 22-30 [facility] Comment on above: Order Comment: Speci men Type: BLOOD SPECIMEN Ordering Facility: [facility] Address: [address] [place] [address] Performed By: #### 2 4321-2 #### [facility] CLIA [id number] [address] [facility] Creatinine [Mass/Vol] 0.78 mg/dL Normal 0.58-0.96 [facility] Comment on above: Order Comment: Speci men Type: BLOOD SPECIMEN Ordering Facility: [facility] Address: [address] [place] [address] Performed By: #### 2 4321-2 #### [facility] CLIA [id number] [address] Creatinine and Glomerular filtration rate.predicted panel (S/P/Bld) 92 mL/min/1.73m??? Normal >=60 [facility] Comment on above: Order Comment: Speci men Type: BLOOD SPECIMEN Ordering Facility: [facility] Address: [address] [place] [address] Result Comment: Crissy mated Glomerular Filtration Rate [...] GFR. Performed By: #### 2 4321-2 #### [facility] CLIA [id number] [address] [place] [address] [place] Glucose [Mass/Vol] 174 mg/dL High 74-99 [facility] Comment on above: Order Comment: Radha tony Type: BLOOD SPECIMEN Ordering Facility: [facility] Address: [address] [place] [address] Result Comment: The [place] Diabetes Association (ADA) provides guidance for cutoff [...] Standards of Medical Care in Diabetes 2016, [place] [employer]. Diabetes Care. 2016.39(Suppl 1). Performed By: #### 2 4321-2 #### [facility] CLIA [id number] [address] [place] [address] [place] Potassium [Moles/Vol] 3.8 mmol/L Normal 3.7-5.1 [facility] Comment on above: Order Comment: Radha tony Type: BLOOD SPECIMEN Ordering Facility: [facility] Address: [address] [place] [address] Performed By: #### 2 4321-2 #### [facility] CLIA [id number] [address] [place] [address] [place] Sodium [Moles/Vol] 136 mmol/L Normal 136-144 [facility] Comment on above: Order Comment: Radha tony Type: BLOOD SPECIMEN Ordering Facility: [facility] Address: [address] [place] [address] Performed By: #### 2 4321-2 #### [facility] CLIA [id number] [address] STATES OF [facility] Urea nitrogen [Mass/Vol] 13 mg/dL Normal 7-21 [facility] Comment on above: Order Comment: Speci men Type: BLOOD SPECIMEN Ordering Facility: [facility] Address: [address] [place] [address] Performed By: #### 2 4321-2 #### [facility] CLIA [id number] [address] [facility] CBC panel Auto (Bld)on 09-03 Erythrocyte distribution width (RBC) [Ratio] 14.1 % Normal 11.5-15.0 [facility] Comment on above: Order Comment: Speci men Type: BLOOD SPECIMEN Ordering Facility: [facility] Address: [address] [place] [address] Performed By: #### 2 4321-2 #### [facility] CLIA [id number] [address] Hematocrit (Bld) [Volume fraction] 37.7 % Normal 36.0-46.0 [facility] Comment on above: Order Comment: Speci men Type: BLOOD SPECIMEN Ordering Facility: [facility] Address: [address] [place] [address] Performed By: #### 2 4321-2 #### [facility] CLIA [id number] [address] [facility] Hemoglobin (Bld) [Mass/Vol] 12.3 g/dL Normal 11.5-15.5 [facility] Comment on above: Order Comment: Speci men Type: BLOOD SPECIMEN Ordering Facility: [facility] Address: [address] [place] [address] Performed By: #### 2 4321-2 #### [facility] CLIA [id number] [address] MCH (RBC) [Entitic mass] 26.8 pg Normal 26.0-34.0 [facility] Comment on above: Order Comment: Speci men Type: BLOOD SPECIMEN Ordering Facility: [facility] Address: [address] [place] [address] Performed By: #### 2 4321-2 #### [facility] CLIA [id number] [address] MCHC (RBC) [Mass/Vol] 32.6 g/dL Normal 30.5-36.0 [facility] Comment on above: Order Comment: Speci men Type: BLOOD SPECIMEN Ordering Facility: [facility] Address: [address] [place] [address] Performed By: #### 2 4321-2 #### [facility] CLIA [id number] [address] MCV (RBC) [Entitic vol] 82.1 fL Normal 80.0-100.0 [facility] Comment on above: Order Comment: Speci men Type: BLOOD SPECIMEN Ordering Facility: [facility] Address: [address] [place] [address] Performed By: #### 2 4321-2 #### [facility] CLIA [id number] [address] Nucleated RBC (Bld) [#/Vol] 10*3/uL Normal <0.01 [facility] Comment on above: Order Comment: Speci men Type: BLOOD SPECIMEN Ordering Facility: [facility] Address: [address] [place] [address] Performed By: #### 2 4321-2 #### [facility] CLIA [id number] [address] Platelet mean volume (Bld) [Entitic vol] 9.9 fL Normal 9.0-12.7 [facility] Comment on above: Order Comment: Speci men Type: BLOOD SPECIMEN Ordering Facility: [facility] Address: [address] [place] [address] Performed By: #### 2 4321-2 #### [facility] CLIA [id number] [address] [place] Platelets (Bld) [#/Vol] 108 10*3/uL Low 150-400 [facility] Comment on above: Order Comment: Speci men Type: BLOOD SPECIMEN Ordering Facility: [facility] Address: [address] [place] [address] Result Comment: No c lot detected. Performed By: #### 2 4321-2 #### [facility] CLIA [id number] [address] RBC (Bld) [#/Vol] 4.59 10*6/uL Normal 3.90-5.20 [facility] Comment on above: Order Comment: Speci men Type: BLOOD SPECIMEN Ordering Facility: [facility] Address: [address] [place] [address] Performed By: #### 2 4321-2 #### [facility] CLIA [id number] [address] WBC (Bld) [#/Vol] 12.21 10*3/uL High 3.70-11.00 [facility] Comment on above: Order Comment: Speci men Type: BLOOD SPECIMEN Ordering Facility: [facility] Address: [address] [place] [address] Performed By: #### 2 4321-2 #### [facility] CLIA [id number] [address] Comprehensive metabolic 2000 panelon 09-04-2023 Albumin [Mass/Vol] 2.6 g/dL Low 3.9-4.9 [facility] Comment on above: Order Comment: Speci men Type: BLOOD SPECIMEN Ordering Facility: [facility] Address: [address] [place] [address] Performed By: #### 2 4321-2 #### [facility] CLIA [id number] [address] ALP [Catalytic activity/Vol] 92 U/L Normal 34-123 [facility] Comment on above: Order Comment: Speci men Type: BLOOD SPECIMEN Ordering Facility: [facility] Address: [address] [place] [address] Performed By: #### 2 4321-2 #### [facility] CLIA [id number] [address] [facility] ALT With P-5'-P [Catalytic activity/Vol] 9 U/L Normal 7-38 [facility] Comment on above: Order Comment: Speci men Type: BLOOD SPECIMEN Ordering Facility: [facility] Address: [address] [place] [address] Performed By: #### 2 4321-2 #### [facility] CLIA [id number] [address] [place] Anion gap [Moles/Vol] 6 mmol/L Low 9-18 [facility] Comment on above: Order Comment: Speci men Type: BLOOD SPECIMEN Ordering Facility: [facility] Address: [address] [place] [address] Performed By: #### 2 4321-2 #### [facility] CLIA [id number] [address] AST With P-5'-P [Catalytic activity/Vol] 13 U/L Normal 13-35 [facility] Comment on above: Order Comment: Speci men Type: BLOOD SPECIMEN Ordering Facility: [facility] Address: [address] [place] [address] Performed By: #### 2 4321-2 #### [facility] CLIA [id number] [address] [facility] Bilirubin [Mass/Vol] 0.8 mg/dL Normal 0.2-1.3 [facility] Comment on above: Order Comment: Speci men Type: BLOOD SPECIMEN Ordering Facility: [facility] Address: [address] [place] [address] Performed By: #### 2 4321-2 #### [facility] CLIA [id number] [address] [facility] Calcium [Mass/Vol] 8.4 mg/dL Low 8.5-10.2 [facility] Comment on above: Order Comment: Speci men Type: BLOOD SPECIMEN Ordering Facility: [facility] Address: [address] [place] [address] Performed By: #### 2 4321-2 #### [facility] CLIA [id number] [address] [place] Chloride [Moles/Vol] 98 mmol/L Normal 97-105 [facility] Comment on above: Order Comment: Speci men Type: BLOOD SPECIMEN Ordering Facility: [facility] Address: [address] [place] [address] Performed By: #### 2 4321-2 #### [facility] CLIA [id number] [address] [place] CO2 [Moles/Vol] 30 mmol/L Normal 22-30 [facility] Comment on above: Order Comment: Speci men Type: BLOOD SPECIMEN Ordering Facility: [facility] Address: [address] [place] [address] Performed By: #### 2 4321-2 #### [facility] CLIA [id number] [address] [place] [address] [facility] Creatinine [Mass/Vol] 0.66 mg/dL Normal 0.58-0.96 [facility] Comment on above: Order Comment: Speci men Type: BLOOD SPECIMEN Ordering Facility: [facility] Address: [address] [place] [address] Performed By: #### 2 4321-2 #### [facility] CLIA [id number] [address] Creatinine and Glomerular filtration rate.predicted panel (S/P/Bld) 106 mL/min/1.73m??? Normal >=60 [facility] Comment on above: Order Comment: Speci men Type: BLOOD SPECIMEN Ordering Facility: [facility] Address: [address] [place] [address] Result Comment: Crissy mated Glomerular Filtration Rate [...] GFR. Performed By: #### 2 4321-2 #### [facility] CLIA [id number] [address] [place] [address] [place] Glucose [Mass/Vol] 160 mg/dL High 74-99 [facility] Comment on above: Order Comment: Radha tony Type: BLOOD SPECIMEN Ordering Facility: [facility] Address: [address] [place] [address] Result Comment: The [place] Diabetes Association (ADA) provides guidance for cutoff [...] Standards of Medical Care in Diabetes 2016, [place] [employer]. Diabetes Care. 2016.39(Suppl 1). Performed By: #### 2 4321-2 #### [facility] CLIA [id number] [address] [place] [address] [place] Potassium [Moles/Vol] 3.7 mmol/L Normal 3.7-5.1 [facility] Comment on above: Order Comment: Radha tony Type: BLOOD SPECIMEN Ordering Facility: [facility] Address: [address] [place] [address] Performed By: #### 2 4321-2 #### [facility] CLIA [id number] [address] [place] [address] [place] Protein [Mass/Vol] 5.8 g/dL Low 6.3-8.0 [facility] Comment on above: Order Comment: Radha tony Type: BLOOD SPECIMEN Ordering Facility: [facility] Address: [address] [place] [id number] Performed By: #### 2 4321-2 #### [facility] CLIA [id number] [address] [place] Sodium [Moles/Vol] 134 mmol/L Low 136-144 [facility] Comment on above: Order Comment: Eileeni men Type: BLOOD SPECIMEN Ordering Facility: [facility] Address: [address] [place] [address] Performed By: #### 2 4321-2 #### [facility] CLIA [id number] [address] [place] Urea nitrogen [Mass/Vol] 13 mg/dL Normal 7-21 [facility] Comment on above: Order Comment: Speci men Type: BLOOD SPECIMEN Ordering Facility: [facility] Address: [address] [place] [address] Performed By: #### 2 4321-2 #### [facility] CLIA [id number] [address] HbA1c (Bld)on 09-04-2023 Average glucose Estimated from glycated hemoglobin (Bld) [Mass/Vol] 272 mg/dL Normal [facility] Comment on above: Order Comment: Speci men Type: BLOOD SPECIMEN Ordering Facility: [facility] Address: [address] [place] [address] Result Comment: eAG: (Estimated average glucose) is a calculated value from HgbA1c and is hardware supplies sales representative of the average blood glucose level in the last 2-3 month period. Performed By: #### 2 4321-2 #### [facility] CLIA [id number] [address] OF [facility] HbA1c (Bld) [Mass fraction] 11.1 % High 4.3-5.6 [facility] Comment on above: Order Comment: Eileeni men Type: BLOOD SPECIMEN Ordering Facility: [facility] Address: [address] [place] [address] Result Comment: Denny ican Diabetes Association guidelines indicate that patients with HgbA1c in the range 5.7-6.4% are at increased risk for development of diabetes, and intervention by lifestyle modification may be beneficial. HgbA1c greater or equal to 6.5% is considered diagnostic of diabetes. Performed By: #### 2 4321-2 #### [facility] CLIA [id number] [address] THERAPY NTon 09-04-2023 THERAPY NT HNO ID: [id number] Author: EILEEN MACIAS, PT Service: Physical Therapy Author Type: Physical Therapist Type: Therapy (PT/OT/Speech/Resp) Filed: 09/04/2023 12:19 Note Text: Physical Therapy Evaluation Summary SERVICE DATE: 09/04/2023 SERVICE TIME: 929 to 952 ROOM: [place] [address] PT 6 Clicks Score: 10 DISCHARGE RECOMMENDATIONS [...] Required With: Transportation Patient reports being independent [employer], 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 SUBJECTIVE Pleasant and agreeable to PT. THERAPY DIAGNOSIS Reduced mobility-other, Muscle Weakness (generalized), Unsteadiness on feet, Abnormalities of gait and mobility-other, General symptoms and signs-other, Difficulty walking-musculoskeletal TREATMENT INTERVENTIONS Evaluation, Therapeutic Activity (98739) Timed Code Treatment (minutes): 8 Skilled Treatment Time (minutes): 23 $ Evaluation-Moderate (84655) Billed Units: 1 unit Therapeutic Activity (67206) Treatment Minutes: 8 $ Therapeutic Activity (30607) Billed Units: 1 unit Instructed weight bearing [...] September 04, 2023 TIME: 12:19 PM Normal [facility] THERAPY NT HNO ID: [id number] Author: KEREN CHAN OTR/L Service: Occupational Therapy Author Type: Occupational Therapist Type: Therapy (PT/OT/Speech/Resp) Filed: 09/04/2023 09:28 Note Text: Occupational Therapy Evaluation Summary SERVICE DATE: 09/04/2023 SERVICE TIME: 816 to 845 ROOM: [place] [address] OT 6 Clicks Score: 16 DISCHARGE RECOMMENDATIONS [...] Required With: Transportation Patient reports being independent [employer], 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 Sleeps [...] and signs-other TREATMENT INTERVENTIONS Evaluation, Therapeutic Activity (47322) Timed Code Treatment (minutes): 12 Skilled Treatment Time (minutes): 29 $ Evaluation - Moderate (28289) Billed Units: 1 unit Therapeutic Activity (22114) Treatment Minutes: 12 $ Therapeutic Activity (44669) Billed Units: 1 unit TRAINING AND EDUCATION PROVIDED Assistive Device Use, Bed Mobility, Benefits of In-Hospital Mobility, Discharge Planning, Disease Specific Education, Functional Mobility Involving ADLs, Role of Occupational Therapy, Safety/Judgment, Precautions/Restrictions, Standing Balance to Improve Hailey with ADLs/Self-Care, Transfer - Sit to Stand, [...] September 04, 2023 TIME: 9:26 AM Normal [facility] ANES PRE-OPon 09-03-2023 ANES PRE-OP HNO ID: [id number] Author: MOODY HODGE DO Service: Anesthesiology Author [...] Problems CARDIO (+) Coronary artery disease involving [place] coronary artery of [place] heart without angina pectoris (+) Essential hypertension [...] (HCC) -RENAL (+) ROBBIE (acute kidney injury) ([facility]) I - PHYSICAL EVALUATION AIRWAY Patient intubated: [...] 4 times (more content not included)... Normal [facility] BRIEF OP NOTon 09-03-2023 BRIEF OP NOT HNO ID: [id number] Author: JUANCARLOS ELDRIDGE MD Service: Orthopaedic Surgery Author Type: Resident Type: Brief Op Note Filed: 09/03/2023 13:25 Note Text: BRIEF OPERATIVE / PROCEDURE NOTE LOG ID: [id number] SURGERY/PROCEDURE DATE: 09/03/2023 INCISION/PROCEDURE START TIME: 12:41 PM INCISION CLOSE/PROCEDURE END TIME: SURGEON(S)/PROCEDURALIST( S) AND VETERINARY LIVESTOCK INSPECTOR(S): Surgeon(s) and Role: * Diya May MD [...] MD Orthopaedic Surgery 09/03/2023 1:21 PM Normal [facility] Basic metabolic 2000 panelon 09-03-2023 Anion gap [Moles/Vol] 7 mmol/L Low 9-18 [facility] Comment on above: Order Comment: Speci men Type: BLOOD SPECIMEN Ordering Facility: [facility] Address: [address] [place] [address] Performed By: #### 5 8410-2 #### [facility] CLIA [id number] [address] [place] [address] [place] Calcium [Mass/Vol] 8.8 mg/dL Normal 8.5-10.2 [facility] Comment on above: Order Comment: Speci men Type: BLOOD SPECIMEN Ordering Facility: [facility] Address: [address] [place] [address] Performed By: #### 5 8410-2 #### [facility] CLIA [id number] [address] [place] Chloride [Moles/Vol] 99 mmol/L Normal 97-105 [facility] Comment on above: Order Comment: Speci men Type: BLOOD SPECIMEN Ordering Facility: [facility] Address: [address] [place] [address] Performed By: #### 5 8410-2 #### [facility] CLIA [id number] [address] [place] CO2 [Moles/Vol] 32 mmol/L High 22-30 [facility] Comment on above: Order Comment: Speci men Type: BLOOD SPECIMEN Ordering Facility: [facility] Address: [address] [place] [address] Performed By: #### 5 8410-2 #### [facility] CLIA [id number] [address] [place] Creatinine [Mass/Vol] 0.56 mg/dL Low 0.58-0.96 [facility] Comment on above: Order Comment: Speci men Type: BLOOD SPECIMEN Ordering Facility: [facility] Address: [address] [place] [address] Performed By: #### 5 8410-2 #### [facility] CLIA [id number] [address] [place] Creatinine and Glomerular filtration rate.predicted panel (S/P/Bld) 110 mL/min/1.73m??? Normal >=60 [facility] Comment on above: Order Comment: Speci men Type: BLOOD SPECIMEN Ordering Facility: [facility] Address: [address] [place] [address] Result Comment: Crissy mated Glomerular Filtration Rate [...] GFR. Performed By: #### 5 8410-2 #### [facility] CLIA [id number] [address] [place] [address] [place] Glucose [Mass/Vol] 130 mg/dL High 74-99 [facility] Comment on above: Order Comment: Speci men Type: BLOOD SPECIMEN Ordering Facility: [facility] Address: [address] [place] [address] Result Comment: The [place] [employer] (ADA) provides guidance for cutoff [...] Standards of Medical Care in Diabetes 2016, [place] [employer]. Diabetes Care. 2016.39(Suppl 1). Performed By: #### 5 8410-2 #### [facility] CLIA [id number] [address] [place] Potassium [Moles/Vol] 3.5 mmol/L Low 3.7-5.1 [facility] Comment on above: Order Comment: Speci men Type: BLOOD SPECIMEN Ordering Facility: [facility] Address: [address] [id number] Performed By: #### 5 8410-2 #### [facility] CLIA [id number] [address] [place] [address] [place] Sodium [Moles/Vol] 138 mmol/L Normal 136-144 [facility] Comment on above: Order Comment: Speci men Type: BLOOD SPECIMEN Ordering Facility: [facility] Address: [address] [place] [address] Performed By: #### 5 8410-2 #### [facility] CLIA [id number] [address] Urea nitrogen [Mass/Vol] 6 mg/dL Low 7-21 [facility] Comment on above: Order Comment: Speci men Type: BLOOD SPECIMEN Ordering Facility: [facility] Address: [address] [place] [address] Performed By: #### 5 8410-2 #### [facility] CLIA [id number] [address] CBC panel Auto (Bld)on 09-02 Erythrocyte distribution width (RBC) [Ratio] 13.6 % Normal 11.5-15.0 [facility] Comment on above: Order Comment: Speci men Type: BLOOD SPECIMEN Ordering Facility: [facility] Address: [address] [place] [address] Performed By: #### 5 8410-2 #### [facility] CLIA [id number] [address] Hematocrit (Bld) [Volume fraction] 39.4 % Normal 36.0-46.0 [facility] Comment on above: Order Comment: Speci men Type: BLOOD SPECIMEN Ordering Facility: [facility] Address: [address] [place] [address] Performed By: #### 5 8410-2 #### [facility] CLIA [id number] [address] Hemoglobin (Bld) [Mass/Vol] 13.2 g/dL Normal 11.5-15.5 [facility] Comment on above: Order Comment: Speci men Type: BLOOD SPECIMEN Ordering Facility: [facility] Address: [address] [place] [address] Performed By: #### 5 8410-2 #### [facility] CLIA [id number] [address] MCH (RBC) [Entitic mass] 26.6 pg Normal 26.0-34.0 [facility] Comment on above: Order Comment: Speci men Type: BLOOD SPECIMEN Ordering Facility: [facility] Address: [address] [place] [address] Performed By: #### 5 8410-2 #### [facility] CLIA [id number] [address] MCHC (RBC) [Mass/Vol] 33.5 g/dL Normal 30.5-36.0 [facility] Comment on above: Order Comment: Speci men Type: BLOOD SPECIMEN Ordering Facility: [facility] Address: [address] [place] [address] Performed By: #### 5 8410-2 #### [facility] CLIA [id number] [address] MCV (RBC) [Entitic vol] 79.4 fL Low 80.0-100.0 [facility] Comment on above: Order Comment: Speci men Type: BLOOD SPECIMEN Ordering Facility: [facility] Address: [address] [place] [address] Performed By: #### 5 8410-2 #### [facility] CLIA [id number] [address] Nucleated RBC (Bld) [#/Vol] 10*3/uL Normal <0.01 [facility] Comment on above: Order Comment: Speci men Type: BLOOD SPECIMEN Ordering Facility: [facility] Address: [address] [place] [address] Performed By: #### 5 8410-2 #### [facility] CLIA [id number] [address] Platelet mean volume (Bld) [Entitic vol] 9.6 fL Normal 9.0-12.7 [facility] Comment on above: Order Comment: Speci men Type: BLOOD SPECIMEN Ordering Facility: [facility] Address: [address] [place] [address] Performed By: #### 5 8410-2 #### [facility] CLIA [id number] [address] Platelets (Bld) [#/Vol] 146 10*3/uL Low 150-400 [facility] Comment on above: Order Comment: Speci men Type: BLOOD SPECIMEN Ordering Facility: [facility] Address: [address] [place] [address] Result Comment: No c lot detected. Performed By: #### 5 8410-2 #### [facility] CLIA [id number] [address] RBC (Bld) [#/Vol] 4.96 10*6/uL Normal 3.90-5.20 [facility] Comment on above: Order Comment: Speci men Type: BLOOD SPECIMEN Ordering Facility: [facility] Address: [address] [place] [address] Performed By: #### 5 8410-2 #### [facility] CLIA [id number] [address] WBC (Bld) [#/Vol] 13.08 10*3/uL High 3.70-11.00 [facility] Comment on above: Order Comment: Speci men Type: BLOOD SPECIMEN Ordering Facility: [facility] Address: [address] [place] [address] Performed By: #### 5 8410-2 #### [facility] CLIA [id number] [address] CONFIRM BLOOD TYPEon 024 ABO O Normal [facility] Comment on above: Order Comment: Speci men Type: BLOOD SPECIMEN Ordering Facility: [facility] Address: [address] [place] [address] Performed By: #### 5 8410-2 #### [facility] CLIA [id number] [address] Rh Nom (Bld) Positive Normal [facility] Comment on above: Order Comment: Speci men Type: BLOOD SPECIMEN Ordering Facility: [facility] Address: [address] [id number] Performed By: #### 5 8410-2 #### [facility] IA [id number] [address] [place] [address] [place] CONSULTon 09-03-2023 CONSULT HNO ID: [id number] Author: NATO RIVERA MD Service: Clinical Cardiology [...] anxiety Prior cardiac hx: - Severe CAD ([facility] showed severe single vessel proximal to mid LAD diffuse disease in [place], sent to [facility] for consideration of high risk PCI vs [...] CC echocardiographic exam performed on 03/10/2017 (ECHO) [facility] 12/2017: 1. Single-vessel coronary artery disease with a long segment of severe diffuse narrowing in the proximal and midportion of the LAD. Another stenosis in the distal portion. 2. Normal right and circumflex coronary arteries. 3. Normal left heart filling pressures. 4. No evidence of aortic stenosis. 5. The patient will be transferred to [facility] for assessment of myocardial viability and [...] 11.2 06/08/19 (more content not included)... Normal [facility] HIGH SENSITIVITY TROPONIN T (SECOND)on 09-03-2023 Troponin T.cardiac High sensitivity method [Mass/Vol] 51 ng/L High <12 [facility] Comment on above: Order Comment: Radha tony Type: BLOOD SPECIMEN Ordering Facility: [facility] Address: [address] [place] [address] Result Comment: When assessing risk for acute [...] 30 day MACE. Performed By: #### L [id number] #### [facility] CLIA [id number] [address] [place] OF [facility] HIGH SENSITIVITY TROPONIN T (THIRD) 3 HRS AFTER INITIALon 09-03-2023 Troponin T.cardiac High sensitivity method [Mass/Vol] 63 ng/L High <12 [facility] Comment on above: Order Comment: Radha tony Type: BLOOD SPECIMEN Ordering Facility: [facility] Address: [address] [place] [address] Result Comment: When assessing risk for acute [...] MACE. Performed By: #### 5 8410-2 #### [facility] CLIA [id number] [address] OPERATIVE NOon 09-03-2023 OPERATIVE NO HNO ID: [id number] Author: DIYA MAY MD Service: Orthopaedic Surgery Author Type: Physician Type: Operative Report Filed: 09/03/2023 17:02 Note Text: OPERATIVE/PROCEDURE REPORT LOG ID: [id number] SURGERY/PROCEDURE DATE: 09/03/2023 INCISION/PROCEDURE START TIME: 12:41 PM INCISION CLOSE/PROCEDURE END TIME: 1:21 PM SURGEON(S)/PROCEDURALIST( S) AND VETERINARY LIVESTOCK INSPECTOR(S): Surgeon(s) and Role: * Diya May MD - Primary * Juancarlos Eldridge MD - Resident - Assisting * Jerry Murray MD - Resident - Assisting No Additional Staff PRE-OP/PRE-PROCEDURE DIAGNOSIS: 1) Right intertrochanteric femur fracture POST-OP/POST-PROCEDURE DIAGNOSIS: 1) Same SURGERY/PROCEDURE(S): 1) Insertion of a Right Hip Intramedullary Femoral Nail for an Intertrochanteric Femur Fracture (CPT 25892) ANESTHESIA: 1) Choice - Anesthesia Consult ANTIBIOTICS: 1) Ancef 2g IV Ancef, 1g IV Vancomycin ESTIMATED BLOOD LOSS: 1) 100 CC SPECIMENS: 1) None CLINICAL INDICATIONS: 53 year old female presented to [facility] for evaluation after a fall. The [...] time-out was then conducted in accordance with [facility] policy. Incision along hip was [...] Implant Name Type Inv. Item Serial No. Cable [employer]sembler [employer] Lot No. LRB No. Used Action NAIL TFN-ADVANCED 125D SHORT GREEN TITANIUM 170MM INTRAMEDULLARY CANNULATED - [id number] Nail NAIL TFN-ADVANCED 125D SHORT GREEN TITANIU (more content not included)... Normal [facility] THERAPY NTon 09-03-2023 THERAPY NT HNO ID: [id number] Author: KEREN CHAN OTR/Gian Service: Occupational Therapy Author Type: Occupational Therapist Type: Therapy (PT/OT/Speech/Resp) Filed: 09/03/2023 07:59 Note Text: OCCUPATIONAL THERAPY MISSED VISIT SERVICE DATE: 09/03/2023 SERVICE TIME: (P) 0759 ROOM: [place] [address] Patient not seen due to (P) Test / Procedure. OR today, will follow. SIGNATURE: LARRY Crocker/Gian PATIENT NAME: Trenton Jackson DATE: September 03, 2023 TIME: 7:59 AM Normal [facility] XR HIP 2V AP/LAT RTon 2023 XR HIP 2V AP/LAT RT * * *Final Report* * * DATE OF EXAM: Sep 03 2023 1:16PM [facility] 5280 - XR HIP 2V AP/LAT RT [...] reduction internal fixation right intertrochanteric femur fracture. Police Captain: GEORGE Transcribe Date/Time: Sep 03 2023 1:33P Dictated by : JIMY ROMERO MD This examination was interpreted and the report reviewed and electronically signed by: JIMY ROMERO MD on Sep 03 2023 1:34PM EST [id number] [facility] XR PELVIS 1V APon 09-03-2023 XR PELVIS [...] internal fixation of right intertrochanteric femur fracture. Police Captain: GEORGE Transcribe Date/Time: Sep 03 2023 2:42P Dictated by : IJMY ROMERO MD This examination was interpreted and the report reviewed and electronically signed by: JIMY ROMERO MD on Sep 03 2023 2:43PM EST [id number] [facility] ALLIED HEALTHon 09-02-2023 ALLIED HEALTH HNO ID: [id number] Author: TERE HORNER Chaplain Service: ? Author [...] contact the Spiritual Care Department: Please call [phone]. SIGNATURE: Chaplain Christiano PATIENT NAME: Trenton Jackson DATE: September 02, 2023 TIME: 11:45 AM PAGER/CONTACT #: [phone] Normal [facility] Absolute lymphocyte countOrd ered By: Griselda Christina on 09-02-2023 Lymphocytes Auto (Unsp spec) [#/Vol] 1.79 10*3/uL 0.83-4.51 [facility] Activated partial thrombopla stin time (aPTT) in platelet poor plasma by coagulation aOrdered By: Griselda Christina on 09-02-2023 aPTT Coag (PPP) [Time] 25.5 s 24.1-36.2 [facility] Automated lymphocyte count a s percentage of total leukocytesOrdered By: Griselda Christina on 09-02-2023 Lymphocytes/100 WBC Auto (Unsp spec) 18.9 % 19-41 [facility] Basophil percentageOrdered B y: Griselda Christina on 09-02-2023 Basophils/100 WBC (Bld) 0.7 % 0-1 [facility] Chloride [Moles/Vol] 102 mmol/L 98-107 [facility] Eosinophils/100 WBC (Bld) 3.9 % 0-5 [facility] Glucose [Mass/Vol] 306 mg/dL 74-106 [facility] Comment on above: Glucose result great er than or equal to 200 mg/dLsuggests DIABETES MELLITUS per A.D.A. criteria. Hemoglobin (Bld) [Mass/Vol] 14.4 g/dL 12.0-15.0 [facility] Monocytes/100 WBC (Bld) 5.2 % 0-10 [facility] Neutrophils (Bld) [#/Vol] 6.5 10*3/uL 2.0-7.7 [facility] Neutrophils/100 WBC (Bld) 69.1 % 47-70 [facility] Potassium [Moles/Vol] 3.3 mmol/L 3.5-5.1 [facility] Sodium [Moles/Vol] 136 mmol/L 136-145 [facility] WBC (Bld) [#/Vol] 9.5 10*3/uL 4.4-11.0 [facility] CBC panel Auto (Bld)on 09-01 Erythrocyte distribution width (RBC) [Ratio] 13.6 % Normal 11.5-15.0 [facility] Comment on above: Order Comment: Speci men Type: BLOOD SPECIMEN Ordering Facility: [facility] Address: [address] [place] [address] Performed By: #### 2 4321-2 #### [facility] CLIA [id number] [address] OF [facility] Hematocrit (Bld) [Volume fraction] 42.9 % Normal 36.0-46.0 [facility] Comment on above: Order Comment: Speci men Type: BLOOD SPECIMEN Ordering Facility: [facility] Address: [address] [place] [address] Performed By: #### 2 4321-2 #### [facility] CLIA [id number] [address] [place] Hemoglobin (Bld) [Mass/Vol] 14.4 g/dL Normal 11.5-15.5 [facility] Comment on above: Order Comment: Speci men Type: BLOOD SPECIMEN Ordering Facility: [facility] Address: [address] [place] [address] Performed By: #### 2 4321-2 #### [facility] CLIA [id number] [address] MCH (RBC) [Entitic mass] 26.7 pg Normal 26.0-34.0 [facility] Comment on above: Order Comment: Speci men Type: BLOOD SPECIMEN Ordering Facility: [facility] Address: [address] [place] [address] Performed By: #### 2 4321-2 #### [facility] CLIA [id number] [address] [place] MCHC (RBC) [Mass/Vol] 33.6 g/dL Normal 30.5-36.0 [facility] Comment on above: Order Comment: Speci men Type: BLOOD SPECIMEN Ordering Facility: [facility] Address: [address] [place] [address] Performed By: #### 2 4321-2 #### [facility] CLIA [id number] [address] [place] MCV (RBC) [Entitic vol] 79.4 fL Low 80.0-100.[address] [facility] Comment on above: Order Comment: Speci men Type: BLOOD SPECIMEN Ordering Facility: [facility] Address: [address] [place] [address] Performed By: #### 2 4321-2 #### [facility] CLIA [id number] [address] [place] Nucleated RBC (Bld) [#/Vol] 10*3/uL Normal <0.01 [facility] Comment on above: Order Comment: Speci men Type: BLOOD SPECIMEN Ordering Facility: [facility] Address: [address] [place] [address] Performed By: #### 2 4321-2 #### [facility] CLIA [id number] [address] Platelet mean volume (Bld) [Entitic vol] 9.2 fL Normal 9.0-12.7 [facility] Comment on above: Order Comment: Speci men Type: BLOOD SPECIMEN Ordering Facility: [facility] Address: [address] [place] [address] Performed By: #### 2 4321-2 #### [facility] CLIA [id number] [address] Platelets (Bld) [#/Vol] 172 10*3/uL Normal 150-400 [facility] Comment on above: Order Comment: Speci men Type: BLOOD SPECIMEN Ordering Facility: [facility] Address: [address] [place] [address] Performed By: #### 2 4321-2 #### [facility] CLIA [id number] [address] [place] RBC (Bld) [#/Vol] 5.40 10*6/uL High 3.90-5.20 [facility] Comment on above: Order Comment: Speci men Type: BLOOD SPECIMEN Ordering Facility: [facility] Address: [address] [place] [address] [place] [address] Performed By: #### 2 4321-2 #### [facility] CLIA [id number] [address] [id number] [place] WBC (Bld) [#/Vol] 15.50 10*3/uL High 3.70-11.00 [facility] Comment on above: Order Comment: Speci men Type: BLOOD SPECIMEN Ordering Facility: [facility] Address: [address] [place] [address] Performed By: #### 2 4321-2 #### [facility] CLIA [id number] [address] [place] [id number] [facility] CONSULTon 09-02-2023 CONSULT HNO ID: [id number] Author: DIYA MAY MD Service: Orthopaedic Surgery [...] as a level II trauma activation to [facility] ED as a transfer from [facility] on 09/02/2023 for evaluation of right hip pain. The patient endorses a ground level fall in her bathroom with subsequent immediate and severe right hip pain and the inability to ambulate. She was brought to [place] ED and was found to have a [...] units 3 (more content not included)... Normal [facility] CT ABD/PEL W IVCONon 024 CT ABD/PEL W IVCON * * *Final Report* * * DATE OF EXAM: Sep 02 2023 11:41AM [facility] 0530 - CT ABD/PEL W IVCON / [...] and pelvis studies, the most recent 04/08/2019, [facility] pelvis and right hip radiographs 09/02/2023. RESULT: [...] thorax: A CT chest is reported separately. Radiation Control Specialist (topogram) images: No additional findings. IMPRESSION: Right-sided [...] be communicated with the ordering provider via [facility] staff message or phone message by [facility] within 2 business days of report finalization. --END OF FINDING-- Police Captain: GEORGE Transcribe Date/Time: Sep 02 2023 12:26P Dictated by : TORITO PARK MD This examination was interpreted and the report reviewed and electronically signed by: TORITO PARK MD on Sep 02 2023 1:00PM EST [id number] ACTIONABLE Invalid Interpretation Code [facility] CT BRAIN WO IVCONon 09-02-[address] BRAIN WO IVCON * * *Final Report* * * DATE OF EXAM: Sep 02 2023 11:39AM [facility] 0504 - CT BRAIN WO IVCON / PROCEDURE REASON: Head trauma, coagulopathy (Age 19-64y) * * * * Physician Interpretation * * * * EXAMINATION: CT CERVICAL SPINE WO IVCON, CT BRAIN WO IVCON CLINICAL HISTORY: Spine fracture, cervical, traumatic (accession [id number]), Head trauma, coagulopathy (Age 19-64y) (accession [id number]) TECHNIQUE: Serial axial images without IV contrast [...] sinuses and mastoid air cells are clear. Radiation Control Specialist (topogram) images: Unremarkable. CERVICAL SPINE: Counting reference: Craniocervical junction. Anatomic Variants: None. Radiation Control Specialist (topogram) images: Unremarkable. Alignment: Alignment is anatomic. [...] vertebrae with counting from the craniocervical junction. Police Captain: PSCB Transcribe Date/Time: Sep 02 2023 11:52A Dictated by : RAYMUNDO MULLINS MD This examination was interpreted and the report reviewed and electronically signed by: RAYMUNDO MULLINS MD on Sep 02 2023 12:19PM EST [id number] Normal [facility] CT CERVICAL SPINE WO IVCONon 09-02-2023 CT CERVICAL SPINE WO IVCON * * *Final Report* * * DATE OF EXAM: Sep 02 2023 11:39AM [facility] 0505 - CT CERVICAL SPINE WO IVCON / PROCEDURE REASON: Spine fracture, cervical, traumatic * * * * Physician Interpretation * * * * EXAMINATION: CT CERVICAL SPINE WO IVCON, CT BRAIN WO IVCON CLINICAL HISTORY: Spine fracture, cervical, traumatic (accession [id number]), Head trauma, coagulopathy (Age 19-64y) (accession [id number]) TECHNIQUE: Serial axial images without IV contrast [...] sinuses and mastoid air cells are clear. Radiation Control Specialist (topogram) images: Unremarkable. CERVICAL SPINE: Counting reference: Craniocervical junction. Anatomic Variants: None. Radiation Control Specialist (topogram) images: Unremarkable. Alignment: Alignment is anatomic. [...] vertebrae with counting from the craniocervical junction. Police Captain: PSCB Transcribe Date/Time: Sep 02 2023 11:52A Dictated by : RAYMUNDO MULLINS MD This examination was interpreted and the report reviewed and electronically signed by: RAYMUNDO MULLINS MD on Sep 02 2023 12:19PM EST [id number] Normal [facility] CT CHEST W IVCONon 4 CT CHEST W IVCON * * *Final Report* * * DATE OF EXAM: Sep 02 2023 11:41AM [facility] 0539 - CT CHEST W IVCON / [...] abdomen: A CT abdomen is reported separately. Radiation Control Specialist (topogram) images: No additional findings. IMPRESSION: Findings suggesting mild pulmonary edema. Similar small and mild prominent mediastinal and hilar lymph nodes considered likely reactive. Appropriate follow-up is recommended as indicated. Similar nodular densities seen in profile with the left major fissure. Small pericardial effusion. Stable left pericardial cyst. Police Captain: GEORGE Transcribe Date/Time: Sep 02 2023 12:42P Dictated by : TORITO PARK MD This examination was interpreted and the report reviewed and electronically signed by: TORITO PARK MD on Sep 02 2023 1:00PM EST [id number] Normal [facility] Comprehensive metabolic 2000 panelon 09-02-2023 Albumin [Mass/Vol] 3.5 g/dL Low 3.9-4.9 [facility] Comment on above: Order Comment: Speci men Type: BLOOD SPECIMEN Ordering Facility: [facility] Address: [address] [place] [address] Performed By: #### 5 8410-2 #### [facility] CLIA [id number] [address] STATES OF [facility] ALP [Catalytic activity/Vol] 119 U/L Normal 34-123 [facility] Comment on above: Order Comment: Speci men Type: BLOOD SPECIMEN Ordering Facility: [facility] Address: [address] [place] [address] Performed By: #### 5 8410-2 #### [facility] CLIA [id number] [address] [place] [facility] ALT With P-5'-P [Catalytic activity/Vol] 20 U/L Normal 7-38 [facility] Comment on above: Order Comment: Speci men Type: BLOOD SPECIMEN Ordering Facility: [facility] Address: [address] [place] [address] Performed By: #### 5 8410-2 #### [facility] CLIA [id number] [address] STATES OF [facility] Anion gap [Moles/Vol] 13 mmol/L Normal 9-18 [facility] Comment on above: Order Comment: Speci men Type: BLOOD SPECIMEN Ordering Facility: [facility] Address: [address] [place] [address] Performed By: #### 5 8410-2 #### [facility] CLIA [id number] [address] [place] AST With P-5'-P [Catalytic activity/Vol] 21 U/L Normal 13-35 [facility] Comment on above: Order Comment: Speci men Type: BLOOD SPECIMEN Ordering Facility: [facility] Address: [address] [place] [address] Performed By: #### 5 8410-2 #### [facility] CLIA [id number] [address] [place] Bilirubin [Mass/Vol] 0.8 mg/dL Normal 0.2-1.3 [facility] Comment on above: Order Comment: Speci men Type: BLOOD SPECIMEN Ordering Facility: [facility] Address: [address] [place] [address] Performed By: #### 5 8410-2 #### [facility] CLIA [id number] [address] [place] Calcium [Mass/Vol] 9.0 mg/dL Normal 8.5-10.2 [facility] Comment on above: Order Comment: Speci men Type: BLOOD SPECIMEN Ordering Facility: [facility] Address: [address] [place] [address] Performed By: #### 5 8410-2 #### [facility] CLIA [id number] [address] [place] Chloride [Moles/Vol] 94 mmol/L Low 97-105 [facility] Comment on above: Order Comment: Speci men Type: BLOOD SPECIMEN Ordering Facility: [facility] Address: [address] [place] [address] Performed By: #### 5 8410-2 #### [facility] CLIA [id number] [address] [place] CO2 [Moles/Vol] 28 mmol/L Normal 22-30 [facility] Comment on above: Order Comment: Speci men Type: BLOOD SPECIMEN Ordering Facility: [facility] Address: [address] [place] [address] Performed By: #### 5 8410-2 #### [facility] CLIA [id number] [address] [place] Creatinine [Mass/Vol] 0.56 mg/dL Low 0.58-0.96 [facility] Comment on above: Order Comment: Speci men Type: BLOOD SPECIMEN Ordering Facility: [facility] Address: [address] [place] [address] Performed By: #### 5 8410-2 #### [facility] CLIA [id number] [address] [place] Creatinine and Glomerular filtration rate.predicted panel (S/P/Bld) 110 mL/min/1.73m??? Normal >=60 [facility] Comment on above: Order Comment: Radha tony Type: BLOOD SPECIMEN Ordering Facility: [facility] Address: [address] [place] [address] Result Comment: Crissy mated Glomerular Filtration Rate [...] GFR. Performed By: #### 5 8410-2 #### [facility] CLIA [id number] [address] [place] [address] [place] Glucose [Mass/Vol] 312 mg/dL High 74-99 [facility] Comment on above: Order Comment: Radha tony Type: BLOOD SPECIMEN Ordering Facility: [facility] Address: [address] [place] [address] Result Comment: The [place] [employer] (ADA) provides guidance for cutoff [...] Standards of Medical Care in Diabetes 2016, [place] [employer]. Diabetes Care. 2016.39(Suppl 1). Performed By: #### 5 8410-2 #### [facility] CLIA [id number] [address] [place] Potassium [Moles/Vol] 3.7 mmol/L Normal 3.7-5.1 [facility] Comment on above: Order Comment: Speci men Type: BLOOD SPECIMEN Ordering Facility: [facility] Address: [address] [place] [address] Performed By: #### 5 8410-2 #### [facility] CLIA [id number] [address] STATES OF [facility] Protein [Mass/Vol] 7.2 g/dL Normal 6.3-8.0 [facility] Comment on above: Order Comment: Speci men Type: BLOOD SPECIMEN Ordering Facility: [facility] Address: [address] [place] [address] Performed By: #### 5 8410-2 #### [facility] CLIA [id number] [address] Sodium [Moles/Vol] 135 mmol/L Low 136-144 [facility] Comment on above: Order Comment: Speci men Type: BLOOD SPECIMEN Ordering Facility: [facility] Address: [address] [place] [address] Performed By: #### 5 8410-2 #### [facility] CLIA [id number] [address] STATES [facility] Urea nitrogen [Mass/Vol] 5 mg/dL Low 7-21 [facility] Comment on above: Order Comment: Speci men Type: BLOOD SPECIMEN Ordering Facility: [facility] Address: [address] [place] [address] Performed By: #### 5 8410-2 #### [facility] CLIA [id number] [address] Determination of erythrocyte mean corpuscular volume (MCV)Ordered By: Griselda Christina on 09-02-2023 MCV (RBC) [Entitic vol] 79.9 fL 81-99 [facility] ECG COMPLETEon 09-02-2023 ECG COMPLETE Ventricular Rate : 1 09 BPM Atrial Rate : 109 BPM P-R Interval : 168 ms QRS Duration : 128 ms Q-T Interval : 364 ms QTC Calculation(Bazett) : 490 ms Calculated P [place] : 46 degrees Calculated R [place] : -45 degrees Calculated T [place] : 97 degrees SINUS TACHYCARDIA POSSIBLE LEFT ATRIAL ENLARGEMENT LEFT AXIS DEVIATION LEFT VENTRICULAR HYPERTROPHY WITH QRS WIDENING ( Brian product ) CANNOT RULE OUT SEPTAL INFARCT , AGE UNDETERMINED T WAVE ABNORMALITY, CONSIDER LATERAL ISCHEMIA ABNORMAL ECG NO PREVIOUS ECGS AVAILABLE Confirmed by WELLINGTON SPANN ([id number]) on 02/27/2024 5:10:44 PM NAME : TRENTON JACKSON PID : [id number] : 1970 Gender : Female Race : ORD : [id number] Procedure Date : Sep 02 2023 12:10:42 Edit Date : Feb 27 2024 17:10:48 Diagnosis: SINUS TACHYCARDIA POSSIBLE LEFT ATRIAL ENLARGEMENT LEFT AXIS DEVIATION LEFT VENTRICULAR HYPERTROPHY WITH QRS WIDENING ( [place] product ) CANNOT RULE OUT SEPTAL INFARCT , AGE UNDETERMINED T WAVE ABNORMALITY, CONSIDER LATERAL ISCHEMIA ABNORMAL ECG NO PREVIOUS ECGS AVAILABLE Confirmed by WELLINGTON SPANN ([id number]) on 02/27/2024 5:10:44 PM Test Reason : Chest Pain Location : 4 : [facility] EM Overread By : WELLINGTON SPANN Edited By : WELLINGTON SPANN Referred By : , Acquired by : VIKTOR ART [facility] ED NOTEon 09-02-2023 ED NOTE HNO ID: [id number] Author: TESS LA RN Service: Emergency Medicine Author Type: Registered Nurse Type: ED Notes Filed: 09/02/2023 13:10 Note Text: Unable to obtain blood draw, MD aware. [facility] ED NOTE HNO ID: [id number] Author: TESS LA RN Service: Emergency Medicine Author Type: Registered Nurse Type: ED Notes Filed: 09/02/2023 12:53 Note Text: Resident aware of need for pain and nausea meds per pt request [facility] ED NOTE HNO ID: [id number] Author: TESS LA RN Service: Emergency Medicine Author Type: Registered Nurse Type: ED Notes Filed: 09/02/2023 12:19 Note Text: Trauma rns unable to obtain blood, US verified RN able to place US PIV at this time. [facility] ED NOTE HNO ID: [id number] Author: TESS LA RN Service: Emergency Medicine Author Type: Registered Nurse Type: ED Notes Filed: 09/02/2023 11:56 Note Text: Ortho MD at bedside [facility] ED NOTE HNO ID: [id number] Author: MILADIS ESPINOSA RN Service: ? Author Type: Registered Nurse Type: ED Notes Filed: 09/02/2023 11:38 Note Text: Bed: 19-ED Expected date: Expected time: Means of arrival: Comments: T2 [facility] ED NOTE HNO ID: [id number] Author: PENNIE MEDINA RN Service: Emergency Medicine Author Type: Registered Nurse Type: ED Notes Filed: 09/02/2023 11:22 Note Text: To CT [facility] ED NOTE HNO ID: [id number] Author: PENNIE MEDINA RN Service: Emergency Medicine Author Type: Registered Nurse Type: ED Notes Filed: 09/02/2023 11:22 Note Text: Blood bank and OR called [facility] Erythrocyte distribution wid th ratioOrdered By: Griselda Christina on 09-02-2023 Erythrocyte distribution width (RBC) [Ratio] 13.7 % 11.6-14.6 [facility] Erythrocyte distribution wid th standard deviationOrdered By: Griselda Christina on 09-02-2023 Erythrocyte distribution width (RBC) [Entitic vol] 39.7 fL 35.1-43.9 [facility] Ethanol SerPl-mCncon 024 Ethanol [Mass/Vol] mg/dL Normal <11 [facility] Comment on above: Order Comment: Speci men Type: BLOOD SPECIMEN Ordering Facility: [facility] Address: [address] [place] [address] Performed By: #### 5 8410-2 #### [facility] CLIA [id number] [address] STATES OF [facility] HCG QUAL BLDon 09-02-2023 HCG, QUALITATIVE Negative Normal Negative [facility] Comment on above: Order Comment: Speci men Type: BLOOD SPECIMEN Ordering Facility: [facility] Address: [address] [place] [address] Performed By: #### 2 4321-2 #### [facility] CLIA [id number] [address] HIGH SENSITIVITY TROPONIN T (INITIAL)on 09-02-2023 Troponin T.cardiac High sensitivity method [Mass/Vol] 40 ng/L High <12 [facility] Comment on above: Order Comment: Speci men Type: BLOOD SPECIMEN Ordering Facility: [facility] Address: [address] [place] [address] Result Comment: When assessing risk for acute [...] MACE. 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 Per EMS, patient feel on the wet bathroom and landed on her right hip. GCS at Scene was 15. On arrival, patient is moaning in pain. She is neurologically intact and HDS. She has obvious pain to the right hip. [place], CXR and PXR showed chronic CHF and [...] No o (more content not included)... Normal [facility] Hematocrit Auto (Bld) [Volum e fraction]Ordered By: Griselda Christina on 09-02-2023 Hematocrit (Bld) [Volume fraction] 44.5 % 37-47 [facility] Immature granulocytes/100 WB C Auto (Bld)Ordered By: Griselda Christina on 09-02-2023 Immature granulocytes/100 WBC (Bld) 2.200 % 0.0-0.9 [facility] Comment on above: IG% - Immature Granu locytes (promyelocytes, myelocytes and metamyelocytes) > 1% indicates that a LEFT SHIFT is Present. Laboratory - Chemistry and C hemistry - challengeOrdered By: Griselda Christina on 09-02-2023 CO2 [Moles/Vol] 28.0 mmol/L 21.0-32.0 [facility] Urea nitrogen/Creatinine [Mass ratio] 6.6 mg/mg 10-20 [facility] Laboratory - CoagulationOrde red By: Grieslda Christina on 09-02-2023 INR Coag (Bld) [Relative time] 0.9 {INR} [facility] PT Coag (PPP) [Time] 11.8 s 11.7-14.9 [facility] Laboratory - Hematology and Cell countsOrdered By: Griselda Christina on 09-02-2023 MCH (RBC) [Entitic mass] 25.9 pg 27.0-32.0 [facility] MCHC (RBC) [Mass/Vol] 32.4 g/dL 32-36 [facility] Nucleated RBC/100 WBC (Bld) [Ratio] 0 % 0-5 [facility] Platelet mean volume (Bld) [Entitic vol] 9.3 fL 6.2-12.0 [facility] Platelets (Bld) [#/Vol] 191 10*3/uL 150-450 [facility] Lipase SerPl-cCncon 09-02-19 24 Lipase [Catalytic activity/Vol] 17 U/L Normal 16-61 [facility] Comment on above: Order Comment: Speci men Type: BLOOD SPECIMEN Ordering Facility: [facility] Address: [address] [place] [address] Performed By: #### 5 8410-2 #### [facility] CLIA [id number] [address] [place] [address] [place] [facility] Natriuretic peptide.B prohormone N-Terminal [Mass/Vol] 4315 pg/mL High <125 [facility] Comment on above: Order Comment: Speci men Type: BLOOD SPECIMEN Ordering Facility: [facility] Address: [address] [place] [address] Performed By: #### 5 8410-2 #### [facility] CLIA [id number] [address] [place] NURSING PROGon 09-02-2023 NURSING PROG HNO ID: [id number] Author: DANI LAGOS, RN Service: Nursing Author Type: Registered Nurse Type: Nursing Progress Note Filed: 09/02/2023 14:35 Note Text: Other: Dr. Kingston made aware that second troponin unable to be obtained due to multiple sticks and IV unable to draw any blood. Normal [facility] No Panel InformationOrdered By: Griselda Christina on 09-02-2023 Estimated Creatinine Clearance Calc 97.60 ml/min [facility] Estimated GFR (MDRD) Amer 102 mL/min >60 [facility] Comment on above: GFR Calc Estimated GFR (MDRD) Non-Af Amer 85 mL/min >60 [facility] Comment on above: Non- GFR Calc PT panel Coag (PPP)on 2023 INR Coag (PPP) [Relative time] 1.0 {INR} Normal 0.9-1.3 [facility] Comment on above: Order Comment: Speci men Type: BLOOD SPECIMEN Ordering Facility: [facility] Address: [address] [place] [address] Result Comment: Charissa min K Antagonist (VKA) Therapeutic Range: INR 2 to 3 (Target INR of 2.5) Note: For patients treated with VKA drugs, such as warfarin, the [place] [employer] 2012 Guideline recommends [...] 70: 252-289 Performed By: #### 3 4528-0, 22907-9 #### [facility] CLIA [id number] [address] [place] [address] [place] PT Coag (PPP) [Time] 10.3 s Normal 9.7-13.0 [facility] Comment on above: Order Comment: Speci men Type: BLOOD SPECIMEN Ordering Facility: [facility] Address: [address] [place] [address] Performed By: #### 3 4528-0, 13623-6 #### [facility] CLIA [id number] [address] [place] [address] [place] RBC Auto (Bld) [#/Vol]Ordere d By: Griselda Christina on 09-02-2023 RBC (Bld) [#/Vol] 5.57 10*6/uL 4.2-5.4 [facility] Serum or plasma calcium xiomara urement (mass/volume)Ordered By: Griselda Christina on 09-02-2023 Calcium [Mass/Vol] 9.1 mg/dL 8.5-10.1 [facility] Serum or plasma creatinine m easurement (mass/volume)Ordered By: Griselda Christina on 09-02-2023 Creatinine [Mass/Vol] 0.76 mg/dL 0.55-1.02 [facility] Comment on above: The validity of the calculated GFR & GFRAA in patients over 70 years has not been determined. Clinical correlation is essential. Serum or plasma urea nitroge n measurement (mass/volume)Ordered By: Griselda Christina on 09-02-2023 Urea nitrogen [Mass/Vol] 5 mg/dL 7-18 [facility] TOX SCREEN ROUT URon 024 Amphetamines Confirm (U) [Mass/Vol] Negative Normal Negative [facility] Comment on above: Order Comment: Speci men Type: URINE SPECIMEN Ordering Facility: [facility] Address: [address] [place] [address] Result Comment: Cuto ff threshold at 1000 ng/mL. Performed By: #### U TOX2 #### [facility] CLIA [id number] [address] [place] BARBITURATES, URINE Negative Normal Negative [facility] Comment on above: Order Comment: Speci men Type: URINE SPECIMEN Ordering Facility: [facility] Address: [address] [place] [address] Result Comment: Cuto ff threshold at 200 ng/mL. Performed By: #### U TOX2 #### [facility] CLIA [id number] [address] [place] [address] [place] BENZODIAZEPINES, UR Negative Normal Negative [facility] Comment on above: Order Comment: Speci men Type: URINE SPECIMEN Ordering Facility: [facility] Address: [address] [place] [address] Result Comment: Cuto ff threshold at 200 ng/mL. Performed By: #### U TOX2 #### [facility] CLIA [id number] [address] OF [facility] Cannabinoids Screen Ql (U) Positive Abnormal Negative [facility] Comment on above: Order Comment: Speci men Type: URINE SPECIMEN Ordering Facility: [facility] Address: [address] [place] [address] Result Comment: Cuto ff threshold at 50 ng/mL. Performed By: #### U TOX2 #### [facility] CLIA [id number] [address] STATES OF [facility] Cocaine Ql (U) Negative Normal Negative [facility] Comment on above: Order Comment: Speci men Type: URINE SPECIMEN Ordering Facility: [facility] Address: [address] [place] [address] Result Comment: Cuto ff threshold at 300 ng/mL. Performed By: #### U TOX2 #### [facility] CLIA [id number] [address] [place] [address] [place] Ethanol (U) [Mass/Vol] <11 Normal <11 [facility] Comment on above: Order Comment: Speci men Type: URINE SPECIMEN Ordering Facility: [facility] Address: [address] [place] [address] Performed By: #### U TOX2 #### [facility] CLIA [id number] [address] [place] Opiates Screen Ql (U) Positive Abnormal Negative [facility] Comment on above: Order Comment: Speci men Type: URINE SPECIMEN Ordering Facility: [facility] Address: [address] [place] [address] Result Comment: Cuto ff threshold at 300 ng/mL. Performed By: #### U TOX2 #### [facility] CLIA [id number] [address] oxyCODONE cutoff Screen (U) [Mass/Vol] Negative Normal Negative [facility] Comment on above: Order Comment: Speci men Type: URINE SPECIMEN Ordering Facility: [facility] Address: [address] [place] [address] Result Comment: Cuto ff threshold at 100 ng/mL. Performed By: #### U TOX2 #### [facility] CLIA [id number] [address] Phencyclidine Ql (U) Negative Normal Negative [facility] Comment on above: Order Comment: Speci men Type: URINE SPECIMEN Ordering Facility: [facility] Address: [address] [place] [address] Result Comment: Cuto ff threshold at 25 ng/mL. Performed By: #### U TOX2 #### [facility] CLIA [id number] [address] TYPE + SCREENon 09-02-2023 ABO O Normal [facility] Comment on above: Order Comment: Speci men Type: BLOOD SPECIMEN Ordering Facility: [facility] Address: [address] [place] [address] Performed By: #### 5 8410-2 #### [facility] CLIA [id number] [address] HISTORICAL AB SCR STATUS Negative Normal [facility] Comment on above: Order Comment: Speci men Type: BLOOD SPECIMEN Ordering Facility: [facility] Address: [address] [place] [address] Performed By: #### 5 8410-2 #### [facility] CLIA [id number] [address] [place] Rh Nom (Bld) Positive Normal [facility] Comment on above: Order Comment: Speci men Type: BLOOD SPECIMEN Ordering Facility: [facility] Address: [address] [place] [address] Performed By: #### 5 8410-2 #### [facility] CLIA [id number] [address] OF [facility] TYPE AND SCREEN EXPIRATION 09/05/2023 23:59 Normal [facility] Comment on above: Order Comment: Speci men Type: BLOOD SPECIMEN Ordering Facility: [facility] Address: [address] [place] [address] Performed By: #### 5 8410-2 #### [facility] CLIA [id number] [address] Thin prep Papanicolaou smear with manual screeningOrdered By: Griselda Christina on 09-02-2023 Thin prep Papanicolaou smear with manual screening 6 15 [facility] Urinalysis complete panel (U )on 09-02-2023 Bacteria LM.HPF (Urine sed) [#/Area] Rare Abnormal None Seen [facility] Comment on above: Order Comment: Speci men Type: URINE SPECIMEN Ordering Facility: [facility] Address: [address] [place] [address] Performed By: #### 2 4356-8 #### [facility] CLIA [id number] [address] OF [facility] Bilirubin Ql (U) Negative Normal Negative [facility] Comment on above: Order Comment: Speci men Type: URINE SPECIMEN Ordering Facility: [facility] Address: [address] [place] [address] Performed By: #### 2 4356-8 #### [facility] CLIA [id number] [address] Clarity (Unsp spec) Clear Normal Clear [facility] Comment on above: Order Comment: Speci men Type: URINE SPECIMEN Ordering Facility: [facility] Address: [address] [place] [address] Performed By: #### 2 4356-8 #### [facility] CLIA [id number] [address] OF [facility] Color (U) Light Yellow Normal yellow [facility] Comment on above: Order Comment: Speci men Type: URINE SPECIMEN Ordering Facility: [facility] Address: [address] [place] [address] Performed By: #### 2 4356-8 #### [facility] CLIA [id number] [address] OF [facility] Glucose Test strip (U) [Mass/Vol] 4+ Abnormal Trace, Negative [facility] Comment on above: Order Comment: Speci men Type: URINE SPECIMEN Ordering Facility: [facility] Address: [address] [place] [address] Performed By: #### 2 4356-8 #### [facility] CLIA [id number] [address] Hemoglobin Ql (U) 3+ Abnormal Negative, Trace [facility] Comment on above: Order Comment: Speci men Type: URINE SPECIMEN Ordering Facility: [facility] Address: [address] [place] [address] Performed By: #### 2 4356-8 #### [facility] CLIA [id number] [address] Ketones Ql (U) Negative Normal Negative, Trace [facility] Comment on above: Order Comment: Speci men Type: URINE SPECIMEN Ordering Facility: [facility] Address: [address] [place] [address] Performed By: #### 2 4356-8 #### [facility] CLIA [id number] [address] Leukocyte esterase Test strip Ql (U) Negative Normal Negative, 25 Jennifer/uL [facility] Comment on above: Order Comment: Speci men Type: URINE SPECIMEN Ordering Facility: [facility] Address: [address] [place] [address] Performed By: #### 2 4356-8 #### [facility] CLIA [id number] [address] Nitrite Ql (U) Negative Normal Negative [facility] Comment on above: Order Comment: Speci men Type: URINE SPECIMEN Ordering Facility: [facility] Address: [address] [place] [address] Performed By: #### 2 4356-8 #### [facility] CLIA [id number] [address] pH (U) 6.5 [pH] Normal 5.0-8.0 [facility] Comment on above: Order Comment: Speci men Type: URINE SPECIMEN Ordering Facility: [facility] Address: [address] [place] [address] Performed By: #### 2 4356-8 #### [facility] CLIA [id number] [address] Protein (U) [Mass/Vol] 2+ Abnormal Trace , Negative [facility] Comment on above: Order Comment: Speci men Type: URINE SPECIMEN Ordering Facility: [facility] Address: [address] [place] [address] Performed By: #### 2 4356-8 #### [facility] CLIA [id number] [address] RBC LM.HPF (Urine sed) [#/Area] /[HPF] Abnormal 0-3 /HPF [facility] Comment on above: Order Comment: Speci men Type: URINE SPECIMEN Ordering Facility: [facility] Address: [address] [place] [address] Performed By: #### 2 4356-8 #### [facility] CLIA [id number] [address] Specific gravity (U) [Rel density] >1.040 High 1.005-1.03 0 [facility] Comment on above: Order Comment: Speci men Type: URINE SPECIMEN Ordering Facility: [facility] Address: [address] [place] [address] Performed By: #### 2 4356-8 #### [facility] CLIA [id number] [address] Urobilinogen Ql (U) Normal Normal Normal [facility] Comment on above: Order Comment: Speci men Type: URINE SPECIMEN Ordering Facility: [facility] Address: [address] [place] [address] Performed By: #### 2 4356-8 #### [facility] CLIA [id number] [address] WBC LM.HPF (Urine sed) [#/Area] 0-5 /HPF Normal 0-5 /HPF [facility] Comment on above: Order Comment: Speci men Type: URINE SPECIMEN Ordering Facility: [facility] Address: [address] [place] [address] Performed By: #### 2 4356-8 #### [facility] CLIA [id number] [address] [facility] XR FEMUR 2V AP/LAT RTon 08-04 XR [...] angulated intratrochanteric fracture of the right hip Police Captain: GEORGE Transcribe Date/Time: Sep 02 2023 5:30P Dictated by : MEKA TAYLOR MD This examination was interpreted and the report reviewed and electronically signed by: MEKA TAYLOR MD on Sep 02 2023 5:32PM EST [id number] Normal [facility] aPTT PPPon 09-02-2023 aPTT Coag (PPP) [Time] 26.2 s Normal 23.0-32.4 [facility] Comment on above: Order Comment: Speci men Type: BLOOD SPECIMEN Ordering Facility: [facility] Address: [address] [place] [address] Performed By: #### 3 4528-0, 57204-2 #### [facility] CLIA [id number] 1 [place] [id number] [facility] Absolute lymphocyte countOrd ered By: Ananda Coyle on 06-19-2023 Lymphocytes Auto (Unsp spec) [#/Vol] 0.91 10*3/uL 0.83-4.51 [facility] Automated lymphocyte count a s percentage of total leukocytesOrdered By: Ananda Coyle on 06-19-2023 Lymphocytes/100 WBC Auto (Unsp spec) 8.1 % 19-41 [facility] Basophil percentageOrdered B y: Ananda Coyle on 06-19-2023 Basophils/100 WBC (Bld) 0.7 % 0-1 [facility] Chloride [Moles/Vol] 102 mmol/L 98-107 [facility] Eosinophils/100 WBC (Bld) 1.2 % 0-5 [facility] Glucose [Mass/Vol] 205 mg/dL 74-106 [facility] Comment on above: Glucose result great er than or equal to 200 mg/dLsuggests DIABETES MELLITUS per A.D.A. criteria. Hemoglobin (Bld) [Mass/Vol] 13.6 g/dL 12.0-15.0 [facility] Monocytes/100 WBC (Bld) 3.2 % 0-10 [facility] Neutrophils (Bld) [#/Vol] 9.7 10*3/uL 2.0-7.7 [facility] Neutrophils/100 WBC (Bld) 86.3 % 47-70 [facility] Potassium [Moles/Vol] 4.2 mmol/L 3.5-5.1 [facility] Sodium [Moles/Vol] 137 mmol/L 136-145 [facility] WBC (Bld) [#/Vol] 11.2 10*3/uL 4.4-11.0 [facility] Determination of erythrocyte mean corpuscular volume (MCV)Ordered By: Ananda Coyle on 06-19-2023 MCV (RBC) [Entitic vol] 81.2 fL 81-99 [facility] Erythrocyte distribution wid th ratioOrdered By: Ananda Coyle on 06-19-2023 Erythrocyte distribution width (RBC) [Ratio] 14.6 % 11.6-14.6 [facility] Erythrocyte distribution wid th standard deviationOrdered By: Ananda Coyle on 06-19-2023 Erythrocyte distribution width (RBC) [Entitic vol] 42.7 fL 35.1-43.9 [facility] Hematocrit Auto (Bld) [Volum e fraction]Ordered By: Ananda Coyle on 06-19-2023 Hematocrit (Bld) [Volume fraction] 42.7 % 37-47 [facility] Immature granulocytes/100 WB C Auto (Bld)Ordered By: Ananda Coyle on 06-19-2023 Immature granulocytes/100 WBC (Bld) 0.500 % 0.0-0.9 [facility] Comment on above: IG% - Immature Granu locytes (promyelocytes, myelocytes and metamyelocytes) > 1% indicates that a LEFT SHIFT is Present. Laboratory - Chemistry and C hemistry - challengeOrdered By: Ananda Coyle on 06-19-2023 CO2 [Moles/Vol] 27.0 mmol/L 21.0-32.0 [facility] Urea nitrogen/Creatinine [Mass ratio] 16.5 mg/mg 10-20 [facility] Laboratory - Hematology and Cell countsOrdered By: Ananda Coyle on 06-19-2023 MCH (RBC) [Entitic mass] 25.9 pg 27.0-32.0 [facility] MCHC (RBC) [Mass/Vol] 31.9 g/dL 32-36 [facility] Nucleated RBC/100 WBC (Bld) [Ratio] 0 % 0-5 [facility] Platelets (Bld) [#/Vol] 214 10*3/uL 150-450 [facility] No Panel InformationOrdered By: Ananda Coyle on 06-19-2023 Estimated Creatinine Clearance Calc 83.12 ml/min [facility] Estimated GFR (MDRD) Amer 91 mL/min >60 [facility] Comment on above: GFR Calc Estimated GFR (MDRD) Non-Af Amer 75 mL/min >60 [facility] Comment on above: Non- GFR Calc Platelet mean volume Marco-Ec ker (Bld) [Entitic vol]Ordered By: Ananda Coyle on 06-19-2023 Platelet mean volume (Bld) [Entitic vol] 9.9 fL 6.2-12.0 [facility] RBC Auto (Bld) [#/Vol]Ordere d By: Ananda Coyle on 06-19-2023 RBC (Bld) [#/Vol] 5.26 10*6/uL 4.2-5.4 [facility] Serum or plasma calcium xiomara urement (mass/volume)Ordered By: Ananda Coyle on 06-19-2023 Calcium [Mass/Vol] 9.6 mg/dL 8.5-10.1 [facility] Serum or plasma creatinine m easurement (mass/volume)Ordered By: Ananda Coyle on 06-19-2023 Creatinine [Mass/Vol] 0.85 mg/dL 0.55-1.02 [facility] Comment on above: The validity of the calculated GFR & GFRAA in patients over 70 years has not been determined. Clinical correlation is essential. Serum or plasma urea nitroge n measurement (mass/volume)Ordered By: Ananda Coyle on 06-19-2023 Urea nitrogen [Mass/Vol] 14 mg/dL 7-18 [facility] Thin prep Papanicolaou smear with manual screeningOrdered By: Ananda Coyle on 06-19-2023 Thin prep Papanicolaou smear with manual screening 8 5-15 [facility] Basophil percentageOrdered B y: Jeremy Alexander on 06-16-2023 Chloride [Moles/Vol] 105 mmol/L 98-107 [facility] Glucose [Mass/Vol] 65 mg/dL 74-106 [facility] Potassium [Moles/Vol] 3.7 mmol/L 3.5-5.1 [facility] Sodium [Moles/Vol] 139 mmol/L 136-145 [facility] Glucose Glucometer (BldC) [M ass/Vol]Ordered By: Jeremy Alexander on 06-16-2023 Glucose [Mass/Vol] 161 mg/dL 74-106 [facility] Comment on above: MANAGEMENT OF PATIEN T CARE PER NURSING PROTOCOL Laboratory - Chemistry and C hemistry - challengeOrdered By: Jeremy Alexander on 06-16-2023 CO2 [Moles/Vol] 27.0 mmol/L 21.0-32.0 [facility] Urea nitrogen/Creatinine [Mass ratio] 20.9 mg/mg 10-20 [facility] No Panel InformationOrdered By: Jeremy Alexander on 06-16-2023 Estimated Creatinine Clearance Calc 107.78 ml/min [facility] Estimated GFR (MDRD) Amer 119 mL/min >60 [facility] Comment on above: GFR Calc Estimated GFR (MDRD) Non-Af Amer 98 mL/min >60 [facility] Comment on above: Non- GFR Calc Serum or plasma calcium xiomara urement (mass/volume)Ordered By: Jeremy Alexander on 06-16-2023 Calcium [Mass/Vol] 8.9 mg/dL 8.5-10.1 [facility] Serum or plasma creatinine m easurement (mass/volume)Ordered By: Jeremy Alexander on 06-16-2023 Creatinine [Mass/Vol] 0.67 mg/dL 0.55-1.02 [facility] Comment on above: The validity of the calculated GFR & GFRAA in patients over 70 years has not been determined. Clinical correlation is essential. Serum or plasma urea nitroge n measurement (mass/volume)Ordered By: Jeremy Alexander on 06-16-2023 Urea nitrogen [Mass/Vol] 14 mg/dL 7-18 [facility] Thin prep Papanicolaou smear with manual screeningOrdered By: Jeremy Alexander on 06-16-2023 Thin prep Papanicolaou smear with manual screening 7 5-15 [facility] Absolute lymphocyte countOrd ered By: Jeremy Alexander on 06-15-2023 Lymphocytes Auto (Unsp spec) [#/Vol] 1.49 10*3/uL 0.83-4.51 [facility] Basophil percentageOrdered B y: Jeremy Alexander on 06-15-2023 Basophil percentage 4.9 mg/dL 2.5-4.9 [facility] Basophils/100 WBC (Bld) 0.8 % 0-1 [facility] Eosinophils/100 WBC (Bld) 5.7 % 0-5 [facility] Neutrophils (Bld) [#/Vol] 4.0 10*3/uL 2.0-7.7 [facility] Neutrophils/100 WBC (Bld) 61.2 % 47-70 [facility] WBC (Bld) [#/Vol] 6.5 10*3/uL 4.4-11.0 [facility] Blood erythrocytes count (nu mber/volume)Ordered By: Jeremy Alexander on 06-15-2023 RBC (Bld) [#/Vol] 4.70 10*6/uL 4.2-5.4 [facility] Blood hemoglobin measurement (mass/volume)Ordered By: Jeremy Alexander on 06-15-2023 Hemoglobin (Bld) [Mass/Vol] 12.0 g/dL 12.0-15.0 [facility] Blood lymphocytes/100 leukoc ytesOrdered By: Jeremy Alexander on 06-15-2023 Lymphocytes/100 WBC (Bld) 22.9 % 19-41 [facility] Blood monocytes/100 leukocyt esOrdered By: Jeremy Alexander on 06-15-2023 Monocytes/100 WBC (Bld) 8.9 % 0-10 [facility] Blood platelet mean volumeOr dered By: Jeremy Alexander on 06-15-2023 Platelet mean volume (Bld) [Entitic vol] 10.2 fL 6.2-12.0 [facility] Determination of erythrocyte mean corpuscular volume (MCV)Ordered By: Jeremy Alexander on 06-15-2023 MCV (RBC) [Entitic vol] 81.9 fL 81-99 [facility] Hematocrit Auto (Bld) [Volum e fraction]Ordered By: Jeremy Alexander on 06-15-2023 Hematocrit (Bld) [Volume fraction] 38.5 % 37-47 [facility] Laboratory - Chemistry and C hemistry - challengeOrdered By: Jeremy Alexander on 06-15-2023 Magnesium [Mass/Vol] 2.1 mg/dL 1.6-2.6 [facility] Laboratory - Hematology and Cell countsOrdered By: Jeremy Alexander on 06-15-2023 Erythrocyte distribution width (RBC) [Entitic vol] 41.6 fL 35.1-43.9 [facility] Erythrocyte distribution width (RBC) [Ratio] 14.1 % 11.6-14.6 [facility] Immature granulocytes/100 WBC (Bld) 0.500 % 0.0-0.9 [facility] Comment on above: IG% - Immature Granu locytes (promyelocytes, myelocytes and metamyelocytes) > 1% indicates that a LEFT SHIFT is Present. MCH (RBC) [Entitic mass] 25.5 pg 27.0-32.0 [facility] Nucleated RBC/100 WBC (Bld) [Ratio] 0 % 0-5 [facility] MCHC Auto (RBC) [Mass/Vol]Or dered By: Jeremy Alexander on 06-15-2023 MCHC (RBC) [Mass/Vol] 31.2 g/dL 32-36 [facility] No Panel InformationOrdered By: Jeremy Alexander on 06-15-2023 Troponin I High Sensitivity 17 pg/mL 3.0-54.0 [facility] Comment on above: Please Note: New Junie t Units and Gender Specific Reference Ranges. For more information see Policy Stat Procedure [place] High Sensitivity Troponin (TNIH) and attachments. Platelets bldOrdered By: Kenia Alexander on 06-15-2023 Platelets (Bld) [#/Vol] 201 10*3/uL 150-450 [facility] Absolute lymphocyte countOrd ered By: Riccardo Hillman on 06-12-2023 Lymphocytes Auto (Unsp spec) [#/Vol] 1.61 10*3/uL 0.83-4.51 [facility] Basophil percentageOrdered B y: Riccardo Hillman on 06-12-2023 Basophils/100 WBC (Bld) 1.0 % 0-1 [facility] Chloride [Moles/Vol] 103 mmol/L 98-107 [facility] Eosinophils/100 WBC (Bld) 3.9 % 0-5 [facility] Glucose [Mass/Vol] 272 mg/dL 74-106 [facility] Comment on above: Glucose result great er than or equal to 200 mg/dLsuggests DIABETES MELLITUS per A.D.A. criteria. Neutrophils (Bld) [#/Vol] 5.5 10*3/uL 2.0-7.7 [facility] Neutrophils/100 WBC (Bld) 68.5 % 47-70 [facility] Potassium [Moles/Vol] 4.0 mmol/L 3.5-5.1 [facility] Comment on above: Moderate Hemolysis, Result may be falsely increased. Sodium [Moles/Vol] 136 mmol/L 136-145 [facility] WBC (Bld) [#/Vol] 8.0 10*3/uL 4.4-11.0 [facility] Blood erythrocytes count (nu mber/volume)Ordered By: Riccardo Hillman on 06-12-2023 RBC (Bld) [#/Vol] 4.92 10*6/uL 4.2-5.4 [facility] Blood hemoglobin measurement (mass/volume)Ordered By: Riccardo Hillman on 06-12-2023 Hemoglobin (Bld) [Mass/Vol] 12.7 g/dL 12.0-15.0 [facility] Blood lymphocytes/100 leukoc ytesOrdered By: Riccardo Hillman on 06-12-2023 Lymphocytes/100 WBC (Bld) 20.3 % 19-41 [facility] Blood manual differential co mment interpretation (narrative result)Ordered By: Riccardo Hillman on 06-12-2023 Manual differential comment Main (Bld) [Interp] SCANNED [facility] Comment on above: AUTO DIFF OK Blood monocytes/100 leukocyt esOrdered By: Riccardo Hillman on 06-12-2023 Monocytes/100 WBC (Bld) 6.0 % 0-10 [facility] Blood platelet mean volumeOr dered By: Riccardo Hillman on 06-12-2023 Platelet mean volume (Bld) [Entitic vol] 11.3 fL 6.2-12.0 [facility] Determination of erythrocyte mean corpuscular volume (MCV)Ordered By: Riccardo Hillman on 06-12-2023 MCV (RBC) [Entitic vol] 81.3 fL 81-99 [facility] Hematocrit Auto (Bld) [Volum e fraction]Ordered By: Riccardo Hillman on 06-12-2023 Hematocrit (Bld) [Volume fraction] 40.0 % 37-47 [facility] INR in Blood by Coagulation assayOrdered By: Riccardo Hillman on 06-12-2023 INR Coag (Bld) [Relative time] 1.0 {INR} [facility] Laboratory - Chemistry and C hemistry - challengeOrdered By: Riccardo Hillman on 06-12-2023 CO2 [Moles/Vol] 27.0 mmol/L 21.0-32.0 [facility] Natriuretic peptide B (Bld) [Mass/Vol] 596.3 pg/mL 0-100 [facility] Urea nitrogen/Creatinine [Mass ratio] 12.0 mg/mg 10-20 [facility] Laboratory - CoagulationOrde red By: Riccardo Hillman on 06-12-2023 aPTT Coag (Bld) [Time] 27.5 s 24.1-36.2 [facility] Coag (PPP) [Time] 12.7 s 11.7-14.9 [facility] Laboratory - Hematology and Cell countsOrdered By: Riccardo Hillman on 06-12-2023 Erythrocyte distribution width (RBC) [Entitic vol] 41.9 fL 35.1-43.9 [facility] Erythrocyte distribution width (RBC) [Ratio] 14.4 % 11.6-14.6 [facility] Immature granulocytes/100 WBC (Bld) 0.300 % 0.0-0.9 [facility] Comment on above: IG% - Immature Granu locytes (promyelocytes, myelocytes and metamyelocytes) > 1% indicates that a LEFT SHIFT is Present. MCH (RBC) [Entitic mass] 25.8 pg 27.0-32.0 [facility] Nucleated RBC/100 WBC (Bld) [Ratio] 0 % 0-5 [facility] MCHC Auto (RBC) [Mass/Vol]Or dered By: Riccardo Hillman on 06-12-2023 MCHC (RBC) [Mass/Vol] 31.8 g/dL 32-36 [facility] No Panel InformationOrdered By: Riccardo Hillman on 06-12-2023 Estimated Creatinine Clearance Calc 140.88 ml/min [facility] Estimated GFR (MDRD) Amer 105 mL/min >60 [facility] Comment on above: GFR Calc Estimated GFR (MDRD) Non-Af Amer 86 mL/min >60 [facility] Comment on above: Non- GFR Calc Troponin I High Sensitivity 22 pg/mL 3.0-54.0 [facility] Comment on above: Please Note: New Junie t Units and Gender Specific Reference Ranges. For more information see Policy Stat Procedure [place] High Sensitivity Troponin (TNIH) and attachments. Platelets bldOrdered By: Guerita Hillman on 06-12-2023 Platelets (Bld) [#/Vol] 150 10*3/uL 150-450 [facility] Serum or plasma calcium xiomara urement (mass/volume)Ordered By: Riccardo Hillman on 06-12-2023 Calcium [Mass/Vol] 9.1 mg/dL 8.5-10.1 [facility] Serum or plasma creatinine m easurement (mass/volume)Ordered By: Riccardo Hillman on 06-12-2023 Creatinine [Mass/Vol] 0.75 mg/dL 0.55-1.02 [facility] Comment on above: The validity of the calculated GFR & GFRAA in patients over 70 years has not been determined. Clinical correlation is essential. Serum or plasma urea nitroge n measurement (mass/volume)Ordered By: Riccardo Hillman on 06-12-2023 Urea nitrogen [Mass/Vol] 9 mg/dL 7-18 [facility] Thin prep Papanicolaou smear with manual screeningOrdered By: Riccardo Hillman on 06-12-2023 Thin prep Papanicolaou smear with manual screening 6 5-15 [facility] Absolute lymphocyte countOrd ered By: Ananda Coyle on 05-26-2023 Lymphocytes Auto (Unsp spec) [#/Vol] 1.00 10*3/uL 0.83-4.51 [facility] Basophil percentageOrdered B y: Ananda Coyle on 05-26-2023 Basophils/100 WBC (Bld) 0.8 % 0-1 [facility] Chloride [Moles/Vol] 103 mmol/L 98-107 [facility] Eosinophils/100 WBC (Bld) 1.3 % 0-5 [facility] Glucose [Mass/Vol] 247 mg/dL 74-106 [facility] Comment on above: Glucose result great er than or equal to 200 mg/dLsuggests DIABETES MELLITUS per A.D.A. criteria. Neutrophils (Bld) [#/Vol] 7.5 10*3/uL 2.0-7.7 [facility] Neutrophils/100 WBC (Bld) 82.1 % 47-70 [facility] Potassium [Moles/Vol] 3.2 mmol/L 3.5-5.1 [facility] Sodium [Moles/Vol] 139 mmol/L 136-145 [facility] WBC (Bld) [#/Vol] 9.1 10*3/uL 4.4-11.0 [facility] Blood erythrocytes count (nu mber/volume)Ordered By: Ananda Coyle on 05-26-2023 RBC (Bld) [#/Vol] 5.34 10*6/uL 4.2-5.4 [facility] Blood hemoglobin measurement (mass/volume)Ordered By: Ananda Coyle on 05-26-2023 Hemoglobin (Bld) [Mass/Vol] 13.9 g/dL 12.0-15.0 [facility] Blood lymphocytes/100 leukoc ytesOrdered By: Ananda Coyle on 05-26-2023 Lymphocytes/100 WBC (Bld) 11.0 % 19-41 [facility] Blood monocytes/100 leukocyt esOrdered By: Ananda Coyle on 05-26-2023 Monocytes/100 WBC (Bld) 4.5 % 0-10 [facility] Blood platelet mean volumeOr dered By: Ananda Coyle on 05-26-2023 Platelet mean volume (Bld) [Entitic vol] 9.8 fL 6.2-12.0 [facility] Determination of erythrocyte mean corpuscular volume (MCV)Ordered By: Ananda Coyle on 05-26-2023 MCV (RBC) [Entitic vol] 82.0 fL 81-99 [facility] Hematocrit Auto (Bld) [Volum e fraction]Ordered By: Ananda Coyle on 05-26-2023 Hematocrit (Bld) [Volume fraction] 43.8 % 37-47 [facility] Laboratory - Chemistry and C hemistry - challengeOrdered By: Ananda Coyle on 05-26-2023 CO2 [Moles/Vol] 31.0 mmol/L 21.0-32.0 [facility] Urea nitrogen/Creatinine [Mass ratio] 7.3 mg/mg 10-20 [facility] Laboratory - Hematology and Cell countsOrdered By: Ananda Coyle on 05-26-2023 Erythrocyte distribution width (RBC) [Entitic vol] 42.0 fL 35.1-43.9 [facility] Erythrocyte distribution width (RBC) [Ratio] 14.4 % 11.6-14.6 [facility] Immature granulocytes/100 WBC (Bld) 0.300 % 0.0-0.9 [facility] Comment on above: IG% - Immature Granu locytes (promyelocytes, myelocytes and metamyelocytes) > 1% indicates that a LEFT SHIFT is Present. MCH (RBC) [Entitic mass] 26.0 pg 27.0-32.0 [facility] Nucleated RBC/100 WBC (Bld) [Ratio] 0 % 0-5 [facility] MCHC Auto (RBC) [Mass/Vol]Or dered By: Ananda Coyle on 05-26-2023 MCHC (RBC) [Mass/Vol] 31.7 g/dL 32-36 [facility] No Panel InformationOrdered By: Ananda Coyle on 05-26-2023 Estimated Creatinine Clearance Calc 95.18 ml/min [facility] Estimated GFR (MDRD) Amer 116 mL/min >60 [facility] Comment on above: GFR Calc Estimated GFR (MDRD) Non-Af Amer 96 mL/min >60 [facility] Comment on above: Non- GFR Calc Platelets bldOrdered By: Andrew Coyle on 05-26-2023 Platelets (Bld) [#/Vol] 220 10*3/uL 150-450 [facility] Serum or plasma calcium xiomara urement (mass/volume)Ordered By: Ananda Coyle on 05-26-2023 Calcium [Mass/Vol] 9.1 mg/dL 8.5-10.1 [facility] Serum or plasma creatinine m easurement (mass/volume)Ordered By: Ananda Coyle on 05-26-2023 Creatinine [Mass/Vol] 0.68 mg/dL 0.55-1.02 [facility] Comment on above: The validity of the calculated GFR & GFRAA in patients over 70 years has not been determined. Clinical correlation is essential. Serum or plasma urea nitroge n measurement (mass/volume)Ordered By: Ananda Coyle on 05-26-2023 Urea nitrogen [Mass/Vol] 5 mg/dL 7-18 [facility] Thin prep Papanicolaou smear with manual screeningOrdered By: Ananda Coyle on 05-26-2023 Thin prep Papanicolaou smear with manual screening 5 5-15 [facility] Absolute lymphocyte countOrd ered By: Vidal Solorio on 05-22-2023 Lymphocytes Auto (Unsp spec) [#/Vol] 1.25 10*3/uL 0.83-4.51 [facility] Basophil percentageOrdered B y: Vidal Solorio on 05-22-2023 Basophils/100 WBC (Bld) 0.7 % 0-1 [facility] Chloride [Moles/Vol] 102 mmol/L 98-107 [facility] Eosinophils/100 WBC (Bld) 2.0 % 0-5 [facility] Glucose [Mass/Vol] 323 mg/dL 74-106 [facility] Comment on above: Glucose result great er than or equal to 200 mg/dLsuggests DIABETES MELLITUS per A.D.A. criteria. Neutrophils (Bld) [#/Vol] 6.3 10*3/uL 2.0-7.7 [facility] Neutrophils/100 WBC (Bld) 76.7 % 47-70 [facility] Potassium [Moles/Vol] 3.9 mmol/L 3.5-5.1 [facility] Sodium [Moles/Vol] 136 mmol/L 136-145 [facility] WBC (Bld) [#/Vol] 8.1 10*3/uL 4.4-11.0 [facility] Blood erythrocytes count (nu mber/volume)Ordered By: Vidal Solorio on 05-22-2023 RBC (Bld) [#/Vol] 4.97 10*6/uL 4.2-5.4 [facility] Blood hemoglobin measurement (mass/volume)Ordered By: Vidal Solorio on 05-22-2023 Hemoglobin (Bld) [Mass/Vol] 12.9 g/dL 12.0-15.0 [facility] Blood lymphocytes/100 leukoc ytesOrdered By: Vidal Solorio on 05-22-2023 Lymphocytes/100 WBC (Bld) 15.4 % 19-41 [facility] Blood monocytes/100 leukocyt esOrdered By: Vidal Solorio on 05-22-2023 Monocytes/100 WBC (Bld) 4.8 % 0-10 [facility] Blood platelet mean volumeOr dered By: Vidal Solorio on 05-22-2023 Platelet mean volume (Bld) [Entitic vol] 10.6 fL 6.2-12.0 [facility] Determination of erythrocyte mean corpuscular volume (MCV)Ordered By: Vidal Solorio on 05-22-2023 MCV (RBC) [Entitic vol] 82.1 fL 81-99 [facility] Hematocrit Auto (Bld) [Volum e fraction]Ordered By: Vidal Solorio on 05-22-2023 Hematocrit (Bld) [Volume fraction] 40.8 % 37-47 [facility] Laboratory - Chemistry and C hemistry - challengeOrdered By: Vidal Solorio on 05-22-2023 CO2 [Moles/Vol] 30.0 mmol/L 21.0-32.0 [facility] Urea nitrogen/Creatinine [Mass ratio] 11.6 mg/mg 10-20 [facility] Laboratory - Hematology and Cell countsOrdered By: Vidal Solorio on 05-22-2023 Erythrocyte distribution width (RBC) [Entitic vol] 41.3 fL 35.1-43.9 [facility] Erythrocyte distribution width (RBC) [Ratio] 14.1 % 11.6-14.6 [facility] [facility] Immature granulocytes/100 WBC (Bld) 0.400 % 0.0-0.9 [facility] Comment on above: IG% - Immature Granu locytes (promyelocytes, myelocytes and metamyelocytes) > 1% indicates that a LEFT SHIFT is Present. MCH (RBC) [Entitic mass] 26.0 pg 27.0-32.0 [facility] Nucleated RBC/100 WBC (Bld) [Ratio] 0 % 0-5 [facility] MCHC Auto (RBC) [Mass/Vol]Or dered By: Vidal Solorio on 05-22-2023 MCHC (RBC) [Mass/Vol] 31.6 g/dL 32-36 [facility] No Panel InformationOrdered By: Vidal Solorio on 05-22-2023 Estimated Creatinine Clearance Calc 82.98 ml/min [facility] Estimated GFR (MDRD) Amer 100 mL/min >60 [facility] Comment on above: GFR Calc Estimated GFR (MDRD) Non-Af Amer 83 mL/min >60 [facility] Comment on above: Non- GFR Calc Platelets bldOrdered By: Roxi Solorio on 05-22-2023 Platelets (Bld) [#/Vol] 196 10*3/uL 150-450 [facility] Serum or plasma calcium xiomara urement (mass/volume)Ordered By: Vidal Solorio on 05-22-2023 Calcium [Mass/Vol] 9.2 mg/dL 8.5-10.1 [facility] Serum or plasma creatinine m easurement (mass/volume)Ordered By: Vidal Solorio on 05-22-2023 Creatinine [Mass/Vol] 0.78 mg/dL 0.55-1.02 [facility] Comment on above: The validity of the calculated GFR & GFRAA in patients over 70 years has not been determined. Clinical correlation is essential. Serum or plasma urea nitroge n measurement (mass/volume)Ordered By: Vidal Solorio on 05-22-2023 Urea nitrogen [Mass/Vol] 9 mg/dL 7-18 [facility] Thin prep Papanicolaou smear with manual screeningOrdered By: Vidal Solorio on 05-22-2023 Thin prep Papanicolaou smear with manual screening 4 5-15 [facility] Absolute lymphocyte countOrd ered By: Brenda Posadas on 05-07-2023 Lymphocytes Auto (Unsp spec) [#/Vol] 1.39 10*3/uL 0.83-4.51 [facility] Basophil percentageOrdered B y: Brenda Posadas on 05-07-2023 Basophils/100 WBC (Bld) 1.1 % 0-1 [facility] Chloride [Moles/Vol] 102 mmol/L 98-107 [facility] Eosinophils/100 WBC (Bld) 3.0 % 0-5 [facility] Glucose [Mass/Vol] 85 mg/dL 74-106 [facility] Neutrophils (Bld) [#/Vol] 4.2 10*3/uL 2.0-7.7 [facility] Neutrophils/100 WBC (Bld) 66.3 % 47-70 [facility] Potassium [Moles/Vol] 4.2 mmol/L 3.5-5.1 [facility] Sodium [Moles/Vol] 136 mmol/L 136-145 [facility] WBC (Bld) [#/Vol] 6.3 10*3/uL 4.4-11.0 [facility] Blood erythrocytes count (nu mber/volume)Ordered By: Brenda Posadas on 05-07-2023 RBC (Bld) [#/Vol] 5.19 10*6/uL 4.2-5.4 [facility] Blood hemoglobin measurement (mass/volume)Ordered By: Brenda Posadas on 05-07-2023 Hemoglobin (Bld) [Mass/Vol] 13.5 g/dL 12.0-15.0 [facility] Blood lymphocytes/100 leukoc ytesOrdered By: Brenda Posadas on 05-07-2023 Lymphocytes/100 WBC (Bld) 22.0 % 19-41 [facility] Blood monocytes/100 leukocyt esOrdered By: Brenda Posadas on 05-07-2023 Monocytes/100 WBC (Bld) 7.3 % 0-10 [facility] Blood platelet mean volumeOr dered By: Brenda Posadas on 05-07-2023 Platelet mean volume (Bld) [Entitic vol] 10.5 fL 6.2-12.0 [facility] Determination of erythrocyte mean corpuscular volume (MCV)Ordered By: Brenda Posadas on 05-07-2023 MCV (RBC) [Entitic vol] 83.8 fL 81-99 [facility] Glucose Glucometer (BldC) [M ass/Vol]Ordered By: Latricia Aaron on 05-07-2023 Glucose [Mass/Vol] 229 mg/dL 74-106 [facility] Comment on above: MANAGEMENT OF PATIEN T CARE PER NURSING PROTOCOL Hematocrit Auto (Bld) [Volum e fraction]Ordered By: Brenda Posadas on 05-07-2023 Hematocrit (Bld) [Volume fraction] 43.5 % 37-47 [facility] Laboratory - Chemistry and C hemistry - challengeOrdered By: Brenda Posadas on 05-07-2023 CO2 [Moles/Vol] 26.0 mmol/L 21.0-32.0 [facility] Urea nitrogen/Creatinine [Mass ratio] 20.5 mg/mg 10-20 [facility] Laboratory - Hematology and Cell countsOrdered By: Brenda Posadas on 05-07-2023 Erythrocyte distribution width (RBC) [Entitic vol] 42.9 fL 35.1-43.9 [facility] Erythrocyte distribution width (RBC) [Ratio] 14.1 % 11.6-14.6 [facility] Immature granulocytes/100 WBC (Bld) 0.300 % 0.0-0.9 [facility] Comment on above: IG% - Immature Granu locytes (promyelocytes, myelocytes and metamyelocytes) > 1% indicates that a LEFT SHIFT is Present. MCH (RBC) [Entitic mass] 26.0 pg 27.0-32.0 [facility] Nucleated RBC/100 WBC (Bld) [Ratio] 0 % 0-5 [facility] MCHC Auto (RBC) [Mass/Vol]Or dered By: Brenda Posadas on 05-07-2023 MCHC (RBC) [Mass/Vol] 31.0 g/dL 32-36 [facility] No Panel InformationOrdered By: Brenda Posadas on 05-07-2023 Estimated Creatinine Clearance Calc 88.66 ml/min [facility] Estimated GFR (MDRD) Amer 108 mL/min >60 [facility] Comment on above: GFR Calc Estimated GFR (MDRD) Non-Af Amer 89 mL/min >60 [facility] Comment on above: Non- GFR Calc Platelets bldOrdered By: [place] Posadas on 05-07-2023 Platelets (Bld) [#/Vol] 202 10*3/uL 150-450 [facility] Serum or plasma calcium xiomara urement (mass/volume)Ordered By: Brenda Posadas on 05-07-2023 Calcium [Mass/Vol] 8.7 mg/dL 8.5-10.1 [facility] Serum or plasma creatinine m easurement (mass/volume)Ordered By: Brenda Posadas on 05-07-2023 Creatinine [Mass/Vol] 0.73 mg/dL 0.55-1.02 [facility] Comment on above: The validity of the calculated GFR & GFRAA in patients over 70 years has not been determined. Clinical correlation is essential. Serum or plasma urea nitroge n measurement (mass/volume)Ordered By: Brenda Posadas on 05-07-2023 Urea nitrogen [Mass/Vol] 15 mg/dL 7-18 [facility] Thin prep Papanicolaou smear with manual screeningOrdered By: Brenda Posadas on 05-07-2023 Thin prep Papanicolaou smear with manual screening 8 5-15 [facility] Laboratory - Chemistry and C hemistry - challengeOrdered By: Lei Justin on 05-04-2023 Magnesium [Mass/Vol] 2.1 mg/dL 1.6-2.6 [facility] No Panel InformationOrdered By: Brenda Posadas on 05-04-2023 Troponin I High Sensitivity 13 pg/mL 3.0-54.0 [facility] Comment on above: Please Note: New Junie t Units and Gender Specific Reference Ranges. For more information see Policy Stat Procedure [place] High Sensitivity Troponin (TNIH) and attachments. Absolute lymphocyte countOrd ered By: Ananda Coyle on 05-03-2023 Lymphocytes Auto (Unsp spec) [#/Vol] 1.07 10*3/uL 0.83-4.51 [facility] Basophil percentageOrdered B y: Ananda Coyle on 05-03-2023 Basophils/100 WBC (Bld) 0.9 % 0-1 [facility] Chloride [Moles/Vol] 106 mmol/L 98-107 [facility] Eosinophils/100 WBC (Bld) 3.4 % 0-5 [facility] Glucose [Mass/Vol] 323 mg/dL 74-106 [facility] Comment on above: Glucose result great er than or equal to 200 mg/dLsuggests DIABETES MELLITUS per A.D.A. criteria. Neutrophils (Bld) [#/Vol] 6.1 10*3/uL 2.0-7.7 [facility] Neutrophils/100 WBC (Bld) 77.6 % 47-70 [facility] Potassium [Moles/Vol] 3.6 mmol/L 3.5-5.1 [facility] Sodium [Moles/Vol] 138 mmol/L 136-145 [facility] WBC (Bld) [#/Vol] 7.9 10*3/uL 4.4-11.0 [facility] Blood erythrocytes count (nu mber/volume)Ordered By: Ananda Coyle on 05-03-2023 RBC (Bld) [#/Vol] 4.86 10*6/uL 4.2-5.4 [facility] Blood hemoglobin measurement (mass/volume)Ordered By: Ananda Coyle on 05-03-2023 Hemoglobin (Bld) [Mass/Vol] 12.6 g/dL 12.0-15.0 [facility] Blood lymphocytes/100 leukoc ytesOrdered By: Ananda Coyle on 05-03-2023 Lymphocytes/100 WBC (Bld) 13.6 % 19-41 [facility] Blood monocytes/100 leukocyt esOrdered By: Ananda Coyle on 05-03-2023 Monocytes/100 WBC (Bld) 3.9 % 0-10 [facility] Blood platelet mean volumeOr dered By: Ananda Coyle on 05-03-2023 Platelet mean volume (Bld) [Entitic vol] 9.8 fL 6.2-12.0 [facility] Determination of erythrocyte mean corpuscular volume (MCV)Ordered By: Ananda Coyle on 05-03-2023 MCV (RBC) [Entitic vol] 82.5 fL 81-99 [facility] Hematocrit Auto (Bld) [Volum e fraction]Ordered By: Ananda Coyle on 05-03-2023 Hematocrit (Bld) [Volume fraction] 40.1 % 37-47 [facility] Influenza virus A and B and SARS-CoV-2 (COVID-19) Ag panel - Upper respiratory specimOrdered By: Ananda Coyle on 05-03-2023 SARS-CoV-2 (COVID-19) RNA CRISSY+probe Ql (Resp) [facility] Laboratory - Chemistry and C hemistry - challengeOrdered By: Ananda Coyle on 05-03-2023 CO2 [Moles/Vol] 29.0 mmol/L 21.0-32.0 [facility] Natriuretic peptide B (Bld) [Mass/Vol] 941.8 pg/mL 0-100 [facility] Urea nitrogen/Creatinine [Mass ratio] 13.0 mg/mg 10-20 [facility] Laboratory - Hematology and Cell countsOrdered By: Ananda Coyle on 05-03-2023 Erythrocyte distribution width (RBC) [Entitic vol] 41.4 fL 35.1-43.9 [facility] Erythrocyte distribution width (RBC) [Ratio] 14.2 % 11.6-14.6 [facility] Immature granulocytes/100 WBC (Bld) 0.600 % 0.0-0.9 [facility] Comment on above: IG% - Immature Granu locytes (promyelocytes, myelocytes and metamyelocytes) > 1% indicates that a LEFT SHIFT is Present. MCH (RBC) [Entitic mass] 25.9 pg 27.0-32.0 [facility] Nucleated RBC/100 WBC (Bld) [Ratio] 0 % 0-5 [facility] MCHC Auto (RBC) [Mass/Vol]Or dered By: Ananda Coyle on 05-03-2023 MCHC (RBC) [Mass/Vol] 31.4 g/dL 32-36 [facility] No Panel InformationOrdered By: Ananda Coyle on 05-03-2023 Estimated Creatinine Clearance Calc 84.06 ml/min [facility] Estimated GFR (MDRD) Amer 102 mL/min >60 [facility] Comment on above: GFR Calc Estimated GFR (MDRD) Non-Af Amer 84 mL/min >60 [facility] Comment on above: Non- GFR Calc Troponin I High Sensitivity 14 pg/mL 3.0-54.0 [facility] Comment on above: Please Note: New Junie t Units and Gender Specific Reference Ranges. For more information see Policy Stat Procedure [place] High Sensitivity Troponin (TNIH) and attachments. Platelets bldOrdered By: Andrew Coyle on 05-03-2023 Platelets (Bld) [#/Vol] 210 10*3/uL 150-450 [facility] Serum or plasma calcium xiomara urement (mass/volume)Ordered By: Ananda Coyle on 05-03-2023 Calcium [Mass/Vol] 8.6 mg/dL 8.5-10.1 [facility] Serum or plasma creatinine m easurement (mass/volume)Ordered By: Ananda Coyle on 05-03-2023 Creatinine [Mass/Vol] 0.77 mg/dL 0.55-1.02 [facility] Comment on above: The validity of the calculated GFR & GFRAA in patients over 70 years has not been determined. Clinical correlation is essential. Serum or plasma urea nitroge n measurement (mass/volume)Ordered By: Ananda Coyle on 05-03-2023 Urea nitrogen [Mass/Vol] 10 mg/dL 7-18 [facility] Thin prep Papanicolaou smear with manual screeningOrdered By: Ananda Coyle on 05-03-2023 Thin prep Papanicolaou smear with manual screening 3 5-15 [facility] Upper respiratory specimen i nfluenza A virus, influenza B virus, and severe acute resOrdered By: Ananda Coyle on 05-03-2023 Upper respiratory specimen influenza A virus, influenza B virus, and severe acute res [facility] Upper respiratory specimen i nfluenza A virus, influenza B virus, and severe acute respiratory syndromOrdered By: Ananda Coyle on 05-03-2023 Upper respiratory specimen influenza A virus, influenza B virus, and severe acute respiratory syndrom [facility] Whole blood hemoglobin A1c/t otal hemoglobin ratio (mass fraction)Ordered By: Lei Justin on 05-03-2023 HbA1c (Bld) [Mass fraction] 11.0 % 3.8-5.6 [facility] Comment on above: Normal < 5.7 % Predi abetic 5.7 - 6.4 % Diabetic >or= 6.5 % Please note range changes. Basophil percentageOrdered B y: Lino Sousa on 04-18-2023 Amylase [Catalytic activity/Vol] 45 U/L 25-115 [facility] Bilirubin [Mass/Vol] 0.90 mg/dL 0.20-1.00 [facility] Comment on above: For patients on eltr ombopag therapy, use of Dimension [place] TBIL is not recommended. Chloride [Moles/Vol] 103 mmol/L 98-107 [facility] Glucose [Mass/Vol] 279 mg/dL 74-106 [facility] Comment on above: Glucose result great er than or equal to 200 mg/dLsuggests DIABETES MELLITUS per A.D.A. criteria. Potassium [Moles/Vol] 4.1 mmol/L 3.5-5.1 [facility] Protein [Mass/Vol] 7.5 g/dL 6.4-8.2 [facility] Sodium [Moles/Vol] 137 mmol/L 136-145 [facility] Laboratory - Chemistry and C hemistry - challengeOrdered By: Lino Sousa on 04-18-2023 ALP [Catalytic activity/Vol] 104 U/L 45-117 [facility] ALT [Catalytic activity/Vol] 13 U/L 13-56 [facility] CO2 [Moles/Vol] 30.0 mmol/L 21.0-32.0 [facility] Globulin (S) [Mass/Vol] 4.5 g/dL 2.2-4.2 [facility] Lipase [Catalytic activity/Vol] 27 U/L 13-75 [facility] Comment on above: Please note:LIPASE r evised reference range effective 22. New Lipase methodology. Expected to produce lower values than the previous assay method. NEW Reference Range: 13 - 75 U/L Urea nitrogen/Creatinine [Mass ratio] 12.8 mg/mg 10-20 [facility] No Panel InformationOrdered By: Lino Sousa on 04-18-2023 Estimated GFR (MDRD) Amer 90 mL/min >60 [facility] Comment on above: GFR Calc Estimated GFR (MDRD) Non-Af Amer 74 mL/min >60 [facility] Comment on above: Non- GFR Calc Serum or plasma albumin xiomara urement (mass/volume)Ordered By: Lino Sousa on 04-18-2023 Albumin [Mass/Vol] 3.0 g/dL 3.2-5.0 [facility] Serum or plasma albumin/glob ulin mass ratioOrdered By: Lino Sousa on 04-18-2023 Albumin/Globulin [Mass ratio] 0.7 {ratio} 0.9-2.4 [facility] Serum or plasma calcium xiomara urement (mass/volume)Ordered By: Lino Sousa on 04-18-2023 Calcium [Mass/Vol] 9.0 mg/dL 8.5-10.1 [facility] Serum or plasma creatinine m easurement (mass/volume)Ordered By: Lino Sousa on 04-18-2023 Creatinine [Mass/Vol] 0.86 mg/dL 0.55-1.02 [facility] Comment on above: The validity of the calculated GFR & GFRAA in patients over 70 years has not been determined. Clinical correlation is essential. Serum or plasma urea nitroge n measurement (mass/volume)Ordered By: Lino Sousa on 04-18-2023 Urea nitrogen [Mass/Vol] 11 mg/dL 7-18 [facility] Thin prep Papanicolaou smear with manual screeningOrdered By: Lino Sousa on 04-18-2023 Thin prep Papanicolaou smear with manual screening 12 U/L 15-37 [facility] Thin prep Papanicolaou smear with manual screening 4 5-15 [facility] Absolute lymphocyte countOrd ered By: Brandon Adames on 02-03-2023 Lymphocytes Auto (Unsp spec) [#/Vol] 1.68 10*3/uL 0.83-4.51 [facility] Basophil percentageOrdered B y: Brandon Adames on 02-03-2023 Basophils/100 WBC (Bld) 1.0 % 0-1 [facility] Chloride [Moles/Vol] 106 mmol/L 98-107 [facility] Eosinophils/100 WBC (Bld) 3.2 % 0-5 [facility] Glucose [Mass/Vol] 177 mg/dL 74-106 [facility] Comment on above: Fasting Glucose resu lt greater than or equal to 126 mg/dL suggests DIABETES MELLITUS per A.D.A. criteria. Neutrophils (Bld) [#/Vol] 5.9 10*3/uL 2.0-7.7 [facility] Neutrophils/100 WBC (Bld) 70.1 % 47-70 [facility] Potassium [Moles/Vol] 3.6 mmol/L 3.5-5.1 [facility] Sodium [Moles/Vol] 138 mmol/L 136-145 [facility] WBC (Bld) [#/Vol] 8.4 10*3/uL 4.4-11.0 [facility] Blood erythrocytes count (nu mber/volume)Ordered By: Brandon Adames on 02-03-2023 RBC (Bld) [#/Vol] 4.78 10*6/uL 4.2-5.4 [facility] Blood hemoglobin measurement (mass/volume)Ordered By: Brandon Adames on 02-03-2023 Hemoglobin (Bld) [Mass/Vol] 13.1 g/dL 12.0-15.0 [facility] Blood lymphocytes/100 leukoc ytesOrdered By: Brandon Adames on 02-03-2023 Lymphocytes/100 WBC (Bld) 20.1 % 19-41 [facility] Blood monocytes/100 leukocyt esOrdered By: Brandon Adames on 02-03-2023 Monocytes/100 WBC (Bld) 5.4 % 0-10 [facility] Blood platelet mean volumeOr dered By: Brandon Adames on 02-03-2023 Platelet mean volume (Bld) [Entitic vol] 9.9 fL 6.2-12.0 [facility] Determination of erythrocyte mean corpuscular volume (MCV)Ordered By: Brandon Adames on 02-03-2023 MCV (RBC) [Entitic vol] 86.0 fL 81-99 [facility] Glucose Glucometer (BldC) [M ass/Vol]Ordered By: Sabina Rosenberg on 02-03-2023 Glucose [Mass/Vol] 247 mg/dL 74-106 [facility] Comment on above: MANAGEMENT OF PATIEN T CARE PER NURSING PROTOCOL Hematocrit Auto (Bld) [Volum e fraction]Ordered By: Brandon Adames on 02-03-2023 Hematocrit (Bld) [Volume fraction] 41.1 % 37-47 [facility] Laboratory - Chemistry and C hemistry - challengeOrdered By: Brandon Adames on 02-03-2023 CO2 [Moles/Vol] 27.0 mmol/L 21.0-32.0 [facility] Urea nitrogen/Creatinine [Mass ratio] 12.6 mg/mg 10-20 [facility] Laboratory - Hematology and Cell countsOrdered By: Brandon Adames on 02-03-2023 Erythrocyte distribution width (RBC) [Entitic vol] 40.4 fL 35.1-43.9 [facility] Erythrocyte distribution width (RBC) [Ratio] 13.1 % 11.6-14.6 [facility] Immature granulocytes/100 WBC (Bld) 0.200 % 0.0-0.9 [facility] Comment on above: IG% - Immature Granu locytes (promyelocytes, myelocytes and metamyelocytes) > 1% indicates that a LEFT SHIFT is Present. MCH (RBC) [Entitic mass] 27.4 pg 27.0-32.0 [facility] Nucleated RBC/100 WBC (Bld) [Ratio] 0 % 0-5 [facility] MCHC Auto (RBC) [Mass/Vol]Or dered By: Brandon Adames on 02-03-2023 MCHC (RBC) [Mass/Vol] 31.9 g/dL 32-36 [facility] No Panel InformationOrdered By: Brandon Adames on 02-03-2023 Estimated Creatinine Clearance Calc 115.58 ml/min [facility] Estimated GFR (MDRD) Amer 148 mL/min >60 [facility] Comment on above: GFR Calc Estimated GFR (MDRD) Non-Af Amer 122 mL/min >60 [facility] Comment on above: Non- GFR Calc No Panel InformationOrdered By: Michael Kinsey on 02-03-2023 Troponin I High Sensitivity 26 pg/mL 3.0-54.0 [facility] Comment on above: Please Note: New Junie t Units and Gender Specific Reference Ranges. For more information see Policy Stat Procedure [place] High Sensitivity Troponin (TNIH) and attachments. Platelets bldOrdered By: Yamil Adames on 02-03-2023 Platelets (Bld) [#/Vol] 226 10*3/uL 150-450 [facility] Serum or plasma calcium xiomara urement (mass/volume)Ordered By: Brandon Adames on 02-03-2023 Calcium [Mass/Vol] 8.3 mg/dL 8.5-10.1 [facility] Serum or plasma creatinine m easurement (mass/volume)Ordered By: Brandon Adames on 02-03-2023 Creatinine [Mass/Vol] 0.56 mg/dL 0.55-1.02 [facility] Comment on above: The validity of the calculated GFR & GFRAA in patients over 70 years has not been determined. Clinical correlation is essential. Serum or plasma urea nitroge n measurement (mass/volume)Ordered By: Brandon Adames on 02-03-2023 Urea nitrogen [Mass/Vol] 7 mg/dL 7-18 [facility] Thin prep Papanicolaou smear with manual screeningOrdered By: Brandon Adames on 02-03-2023 Thin prep Papanicolaou smear with manual screening 5 5-15 [facility] Absolute lymphocyte countOrd ered By: Zack Card on 02-02-2023 Lymphocytes Auto (Unsp spec) [#/Vol] 1.45 10*3/uL 0.83-4.51 [facility] Basophil percentageOrdered B y: Zack Card on 02-02-2023 Basophils/100 WBC (Bld) 1.1 % 0-1 [facility] Chloride [Moles/Vol] 104 mmol/L 98-107 [facility] Eosinophils/100 WBC (Bld) 3.9 % 0-5 [facility] Glucose [Mass/Vol] 249 mg/dL 74-106 [facility] Comment on above: Glucose result great er than or equal to 200 mg/dLsuggests DIABETES MELLITUS per A.D.A. criteria. Neutrophils (Bld) [#/Vol] 5.5 10*3/uL 2.0-7.7 [facility] Neutrophils/100 WBC (Bld) 70.1 % 47-70 [facility] Potassium [Moles/Vol] 3.6 mmol/L 3.5-5.1 [facility] Sodium [Moles/Vol] 138 mmol/L 136-145 [facility] WBC (Bld) [#/Vol] 7.9 10*3/uL 4.4-11.0 [facility] Blood erythrocytes count (nu mber/volume)Ordered By: Zack Card on 02-02-2023 RBC (Bld) [#/Vol] 4.79 10*6/uL 4.2-5.4 [facility] Blood hemoglobin measurement (mass/volume)Ordered By: Zack Card on 02-02-2023 Hemoglobin (Bld) [Mass/Vol] 13.2 g/dL 12.0-15.0 [facility] Blood lymphocytes/100 leukoc ytesOrdered By: Zack Card on 02-02-2023 Lymphocytes/100 WBC (Bld) 18.4 % 19-41 [facility] Blood monocytes/100 leukocyt esOrdered By: Zack Card on 02-02-2023 Monocytes/100 WBC (Bld) 6.1 % 0-10 [facility] Blood platelet mean volumeOr dered By: Zack Card on 02-02-2023 Platelet mean volume (Bld) [Entitic vol] 10.6 fL 6.2-12.0 [facility] Determination of erythrocyte mean corpuscular volume (MCV)Ordered By: Zakc Card on 02-02-2023 MCV (RBC) [Entitic vol] 87.3 fL 81-99 [facility] Hematocrit Auto (Bld) [Volum e fraction]Ordered By: Zack Card on 02-02-2023 Hematocrit (Bld) [Volume fraction] 41.8 % 37-47 [facility] Laboratory - Chemistry and C hemistry - challengeOrdered By: Zack Card on 02-02-2023 CO2 [Moles/Vol] 30.0 mmol/L 21.0-32.0 [facility] Natriuretic peptide B (Bld) [Mass/Vol] 498.2 pg/mL 0-100 [facility] Urea nitrogen/Creatinine [Mass ratio] 11.7 mg/mg 10-20 [facility] Laboratory - Hematology and Cell countsOrdered By: Zack Card on 02-02-2023 Erythrocyte distribution width (RBC) [Entitic vol] 41.2 fL 35.1-43.9 [facility] Erythrocyte distribution width (RBC) [Ratio] 13.0 % 11.6-14.6 [facility] Immature granulocytes/100 WBC (Bld) 0.400 % 0.0-0.9 [facility] Comment on above: IG% - Immature Granu locytes (promyelocytes, myelocytes and metamyelocytes) > 1% indicates that a LEFT SHIFT is Present. MCH (RBC) [Entitic mass] 27.6 pg 27.0-32.0 [facility] Nucleated RBC/100 WBC (Bld) [Ratio] 0 % 0-5 [facility] MCHC Auto (RBC) [Mass/Vol]Or dered By: Zack Card on 02-02-2023 MCHC (RBC) [Mass/Vol] 31.6 g/dL 32-36 [facility] No Panel InformationOrdered By: Zack Card on 02-02-2023 Troponin I High Sensitivity 24 pg/mL 3.0-54.0 [facility] Comment on above: Please Note: New Junie t Units and Gender Specific Reference Ranges. For more information see Policy Stat Procedure [place] High Sensitivity Troponin (TNIH) and attachments. D-Dimer Quantitative (PE/DVT) 0.99 FEU/ug/m 0.27-0.49 [facility] Comment on above: D-Dimer ELEVATED (>0 .49): Additional studies and clinicalassessments are indicated to conclude diagnosis of:Deep Vein Thrombosis (DVT) or Pulmonary Embolism (PE) Estimated Creatinine Clearance Calc 90.30 ml/min [facility] Estimated GFR (MDRD) Amer 116 mL/min >60 [facility] Comment on above: GFR Calc Estimated GFR (MDRD) Non-Af Amer 96 mL/min >60 [facility] Comment on above: Non- GFR Calc Platelets bldOrdered By: Sanjay Card on 02-02-2023 Platelets (Bld) [#/Vol] 238 10*3/uL 150-450 [facility] Serum or plasma calcium xiomara urement (mass/volume)Ordered By: Zack Card on 02-02-2023 Calcium [Mass/Vol] 8.9 mg/dL 8.5-10.1 [facility] Serum or plasma creatinine m easurement (mass/volume)Ordered By: Zack Card on 02-02-2023 Creatinine [Mass/Vol] 0.69 mg/dL 0.55-1.02 [facility] Comment on above: The validity of the calculated GFR & GFRAA in patients over 70 years has not been determined. Clinical correlation is essential. Serum or plasma urea nitroge n measurement (mass/volume)Ordered By: Zack Card on 02-02-2023 Urea nitrogen [Mass/Vol] 8 mg/dL 7-18 [facility] Thin prep Papanicolaou smear with manual screeningOrdered By: Zack Card on 02-02-2023 Thin prep Papanicolaou smear with manual screening 4 5-15 [facility] Glucose Glucometer (BldC) [M ass/Vol]Ordered By: Sabina Rosenberg on 01-03-2023 Glucose [Mass/Vol] 154 mg/dL 74-106 [facility] Comment on above: MANAGEMENT OF PATIEN T CARE PER NURSING PROTOCOL Basophil percentageOrdered B y: Sabina Rosenberg on 01-02-2023 Chloride [Moles/Vol] 100 mmol/L 98-107 [facility] Glucose [Mass/Vol] 293 mg/dL 74-106 [facility] Comment on above: Glucose result great er than or equal to 200 mg/dLsuggests DIABETES MELLITUS per A.D.A. criteria. Potassium [Moles/Vol] 3.7 mmol/L 3.5-5.1 [facility] Sodium [Moles/Vol] 136 mmol/L 136-145 [facility] Laboratory - Chemistry and C hemistry - challengeOrdered By: Sabina Rosenberg on 01-02-2023 CO2 [Moles/Vol] 30.0 mmol/L 21.0-32.0 [facility] Urea nitrogen/Creatinine [Mass ratio] 8.3 mg/mg 10-20 [facility] No Panel InformationOrdered By: Sabina Rosenberg on 01-02-2023 Estimated Creatinine Clearance Calc 86.54 ml/min [facility] Estimated GFR (MDRD) Amer 109 mL/min >60 [facility] Comment on above: GFR Calc Estimated GFR (MDRD) Non-Af Amer 90 mL/min >60 [facility] Comment on above: Non- GFR Calc Serum or plasma calcium xiomara urement (mass/volume)Ordered By: Sabina Rosenberg on 01-02-2023 Calcium [Mass/Vol] 8.7 mg/dL 8.5-10.1 [facility] Serum or plasma creatinine m easurement (mass/volume)Ordered By: Sabina Rosenberg on 01-02-2023 Creatinine [Mass/Vol] 0.72 mg/dL 0.55-1.02 [facility] Comment on above: The validity of the calculated GFR & GFRAA in patients over 70 years has not been determined. Clinical correlation is essential. Serum or plasma urea nitroge n measurement (mass/volume)Ordered By: Sabina Rosenberg on 01-02-2023 Urea nitrogen [Mass/Vol] 6 mg/dL 7-18 [facility] Thin prep Papanicolaou smear with manual screeningOrdered By: Sabina Rosenberg on 01-02-2023 Thin prep Papanicolaou smear with manual screening 6 5-15 [facility] Absolute lymphocyte countOrd ered By: Yvette Hanley on 01-01-2023 Lymphocytes Auto (Unsp spec) [#/Vol] 1.39 10*3/uL 0.83-4.51 [facility] Basophil percentageOrdered B y: Yvette Hanley on 01-01-2023 Basophils/100 WBC (Bld) 0.8 % 0-1 [facility] Chloride [Moles/Vol] 104 mmol/L 98-107 [facility] Eosinophils/100 WBC (Bld) 2.7 % 0-5 [facility] Glucose [Mass/Vol] 344 mg/dL 74-106 [facility] Comment on above: Glucose result great er than or equal to 200 mg/dLsuggests DIABETES MELLITUS per A.D.A. criteria. Neutrophils (Bld) [#/Vol] 6.5 10*3/uL 2.0-7.7 [facility] Neutrophils/100 WBC (Bld) 75.1 % 47-70 [facility] Potassium [Moles/Vol] 4.0 mmol/L 3.5-5.1 [facility] Sodium [Moles/Vol] 136 mmol/L 136-145 [facility] WBC (Bld) [#/Vol] 8.7 10*3/uL 4.4-11.0 [facility] Blood erythrocytes count (nu mber/volume)Ordered By: Yvette Hanley on 01-01-2023 RBC (Bld) [#/Vol] 5.13 10*6/uL 4.2-5.4 [facility] Blood hemoglobin measurement (mass/volume)Ordered By: Yvette Hanley on 01-01-2023 Hemoglobin (Bld) [Mass/Vol] 14.0 g/dL 12.0-15.0 [facility] Blood lymphocytes/100 leukoc ytesOrdered By: Yvette Hanley on 01-01-2023 Lymphocytes/100 WBC (Bld) 16.1 % 19-41 [facility] Blood monocytes/100 leukocyt esOrdered By: Yvette Hanley on 01-01-2023 Monocytes/100 WBC (Bld) 5.0 % 0-10 [facility] Blood platelet mean volumeOr dered By: Yvette Hanley on 01-01-2023 Platelet mean volume (Bld) [Entitic vol] 9.5 fL 6.2-12.0 [facility] Determination of erythrocyte mean corpuscular volume (MCV)Ordered By: Yvette Hanley on 01-01-2023 MCV (RBC) [Entitic vol] 84.2 fL 81-99 [facility] Hematocrit Auto (Bld) [Volum e fraction]Ordered By: Yvette Hanley on 01-01-2023 Hematocrit (Bld) [Volume fraction] 43.2 % 37-47 [facility] Influenza virus A and B and SARS-CoV-2 (COVID-19) Ag panel - Upper respiratory specimOrdered By: Eagle Talon on 01-01-2023 SARS-CoV-2 (COVID-19) RNA CRISSY+probe Ql (Resp) [facility] SARS-CoV-2 (COVID-19) RNA CRISSY+probe Ql (Resp) [facility] Laboratory - Chemistry and C hemistry - challengeOrdered By: Yvette Hanley on 01-01-2023 Natriuretic peptide B (Bld) [Mass/Vol] 573.6 pg/mL 0-100 [facility] CO2 [Moles/Vol] 27.0 mmol/L 21.0-32.0 [facility] Urea nitrogen/Creatinine [Mass ratio] 8.2 mg/mg 10-20 [facility] Laboratory - Hematology and Cell countsOrdered By: Yvette Hanley on 01-01-2023 Erythrocyte distribution width (RBC) [Entitic vol] 42.1 fL 35.1-43.9 [facility] Erythrocyte distribution width (RBC) [Ratio] 13.7 % 11.6-14.6 [facility] Immature granulocytes/100 WBC (Bld) 0.300 % 0.0-0.9 [facility] Comment on above: IG% - Immature Granu locytes (promyelocytes, myelocytes and metamyelocytes) > 1% indicates that a LEFT SHIFT is Present. MCH (RBC) [Entitic mass] 27.3 pg 27.0-32.0 [facility] Nucleated RBC/100 WBC (Bld) [Ratio] 0 % 0-5 [facility] MCHC Auto (RBC) [Mass/Vol]Or dered By: [facility] Talon on 01-01-2023 MCHC (RBC) [Mass/Vol] 32.4 g/dL 32-36 [facility] No Panel InformationOrdered By: Yvette Hanley on 01-01-2023 Troponin I High Sensitivity 12 pg/mL 3.0-54.0 [facility] Comment on above: Please Note: New Junie t Units and Gender Specific Reference Ranges. For more information see Policy Stat Procedure [place] High Sensitivity Troponin (TNIH) and attachments. Estimated Creatinine Clearance Calc 84.20 ml/min [facility] Estimated GFR (MDRD) Amer 107 mL/min >60 [facility] Comment on above: GFR Calc Estimated GFR (MDRD) Non-Af Amer 88 mL/min >60 [facility] Comment on above: Non- GFR Calc Platelets bldOrdered By: Sallie Talon on 01-01-2023 Platelets (Bld) [#/Vol] 201 10*3/uL 150-450 [facility] Serum or plasma calcium xiomara urement (mass/volume)Ordered By: Yvette Hanley on 01-01-2023 Calcium [Mass/Vol] 8.7 mg/dL 8.5-10.1 [facility] Serum or plasma creatinine m easurement (mass/volume)Ordered By: Yvette Hanley on 01-01-2023 Creatinine [Mass/Vol] 0.74 mg/dL 0.55-1.02 [facility] Comment on above: The validity of the calculated GFR & GFRAA in patients over 70 years has not been determined. Clinical correlation is essential. Serum or plasma urea nitroge n measurement (mass/volume)Ordered By: Yvette Hanley on 01-01-2023 Urea nitrogen [Mass/Vol] 6 mg/dL 7-18 [facility] Thin prep Papanicolaou smear with manual screeningOrdered By: Yvette Hanley on 01-01-2023 Thin prep Papanicolaou smear with manual screening 5 5-15 [facility] Absolute lymphocyte countOrd ered By: Dr. Card on 09-18-2022 Lymphocytes Auto (Unsp spec) [#/Vol] 1.74 10*3/uL 0.83-4.51 [facility] Basophil percentageOrdered B y: Dr. Card on 09-18-2022 Basophil percentage 425 mg/dL 74-106 [facility] Basophil percentage 6.7 g/dL 6.4-8.2 [facility] Basophil percentage 0.70 mg/dL 0.20-1.00 [facility] Basophil percentage 132 mmol/L 136-145 [facility] Basophil percentage 4.7 mmol/L 3.5-5.1 [facility] Basophil percentage 100 mmol/L 98-107 [facility] Basophils (Bld) [#/Vol] 9.5 10*3/uL 4.4-11.0 [facility] Basophils (Bld) [#/Vol] 7.1 10*3/uL 2.0-7.7 [facility] Basophils/100 WBC (Bld) 74.8 % 47-70 [facility] Basophils/100 WBC (Bld) 0.7 % 0-5 [facility] Basophils/100 WBC (Bld) 0.4 % 0-1 [facility] Basophil percentageOrdered B y: Zack Card on 09-18-2022 Bilirubin [Mass/Vol] 0.70 mg/dL 0.20-1.00 [facility] Comment on above: For patients on eltr ombopag therapy, use of Dimension [place] TBIL is not recommended. Chloride [Moles/Vol] 100 mmol/L 98-107 [facility] Glucose [Mass/Vol] 425 mg/dL 74-106 [facility] Comment on above: Glucose result great er than or equal to 200 mg/dLsuggests DIABETES MELLITUS per A.D.A. criteria. Potassium [Moles/Vol] 4.7 mmol/L 3.5-5.1 [facility] Protein [Mass/Vol] 6.7 g/dL 6.4-8.2 [facility] Sodium [Moles/Vol] 132 mmol/L 136-145 [facility] Eosinophils/100 WBC (Bld) 0.7 % 0-5 [facility] Neutrophils (Bld) [#/Vol] 7.1 10*3/uL 2.0-7.7 [facility] Neutrophils/100 WBC (Bld) 74.8 % 47-70 [facility] WBC (Bld) [#/Vol] 9.5 10*3/uL 4.4-11.0 [facility] Blood erythrocytes count (nu mber/volume)Ordered By: Dr. Card on 09-18-2022 RBC (Bld) [#/Vol] 6.20 10*6/uL 4.2-5.4 [facility] Blood hemoglobin measurement (mass/volume)Ordered By: Dr. Card on 09-18-2022 Hemoglobin (Bld) [Mass/Vol] 17.0 g/dL 12.0-15.0 [facility] Blood lymphocytes/100 leukoc ytesOrdered By: Dr. Card on 09-18-2022 Lymphocytes/100 WBC (Bld) 18.4 % 19-41 [facility] Blood monocytes/100 leukocyt esOrdered By: Dr. Card on 09-18-2022 Monocytes/100 WBC (Bld) 5.3 % 0-10 [facility] Blood platelet mean volumeOr dered By: Dr. Card on 09-18-2022 Platelet mean volume (Bld) [Entitic vol] 9.4 fL 6.2-12.0 [facility] Determination of erythrocyte mean corpuscular volume (MCV)Ordered By: Dr. Card on 09-18-2022 MCV (RBC) [Entitic vol] 82.7 fL 81-99 [facility] Direct bilirubinOrdered By: Dr. Card on 09-18-2022 Bilirubin.direct [Mass/Vol] 0.18 mg/dL 0.00-0.30 [facility] Glucose Glucometer (dC) [M ass/Vol]Ordered By: Dr. Card on 09-18-2022 Glucose [Mass/Vol] 281 mg/dL 74-106 [facility] Comment on above: MANAGEMENT OF PATIEN T CARE PER NURSING PROTOCOL Hematocrit Auto (Bld) [Volum e fraction]Ordered By: Dr. Card on 09-18-2022 Hematocrit (Bld) [Volume fraction] 51.3 % 37-47 [facility] Laboratory - Chemistry and C hemistry - challengeOrdered By: Zack Card on 09-18-2022 ALP [Catalytic activity/Vol] 111 U/L 45-117 [facility] ALT [Catalytic activity/Vol] 19 U/L 13-56 [facility] CO2 [Moles/Vol] 30.0 mmol/L 21.0-32.0 [facility] Globulin (S) [Mass/Vol] 3.9 g/dL 2.2-4.2 [facility] Lipase [Catalytic activity/Vol] 27 U/L 13-75 [facility] Comment on above: Please note:LIPASE r evised reference range effective 22. New Lipase methodology. Expected to produce lower values than the previous assay method. NEW Reference Range: 13 - 75 U/L Urea nitrogen/Creatinine [Mass ratio] 18.2 mg/mg 10-20 [facility] Laboratory - Hematology and Cell countsOrdered By: Zack Card on 09-18-2022 Erythrocyte distribution width (RBC) [Entitic vol] 38.1 fL 35.1-43.9 [facility] Erythrocyte distribution width (RBC) [Ratio] 12.7 % 11.6-14.6 [facility] Immature granulocytes/100 WBC (Bld) 0.400 % 0.0-0.9 [facility] Comment on above: IG% - Immature Granu locytes (promyelocytes, myelocytes and metamyelocytes) > 1% indicates that a LEFT SHIFT is Present. MCH (RBC) [Entitic mass] 27.4 pg 27.0-32.0 [facility] Nucleated RBC/100 WBC (Bld) [Ratio] 0 % 0-5 [facility] MCHC Auto (RBC) [Mass/Vol]Or dered By: Dr. Card on 09-18-2022 MCHC (RBC) [Mass/Vol] 33.1 g/dL 32-36 [facility] No Panel InformationOrdered By: Zack Card on 09-18-2022 Estimated Creatinine Clearance Calc 62.94 ml/min [facility] Estimated GFR (MDRD) Amer 76 mL/min >60 [facility] Comment on above: GFR Calc Estimated GFR (MDRD) Non-Af Amer 63 mL/min >60 [facility] Comment on above: Non- GFR Calc No Panel InformationOrdered By: Dr. Card on 09-18-2022 63 mL/min >60 [facility] 76 mL/min >60 [facility] 62.94 ml/min [facility] 18.2 RATIO 10-20 [facility] 3.9 g/dL 2.2-4.2 [facility] 27 U/L 13-75 [facility] 111 U/L 45-117 [facility] 19 U/L 13-56 [facility] 30.0 mmol/L 21.0-32.0 [facility] 27.4 pg 27.0-32.0 [facility] 12.7 % 11.6-14.6 [facility] 38.1 fl 35.1-43.9 [facility] 0.400 % 0.0-0.9 [facility] 0 % 0-5 [facility] Platelets bldOrdered By: Dr. Card on 09-18-2022 Platelets (Bld) [#/Vol] 268 10*3/uL 150-450 [facility] Serum or plasma albumin xiomara urement (mass/volume)Ordered By: Dr. Card on 09-18-2022 Albumin [Mass/Vol] 2.8 g/dL 3.2-5.0 [facility] Serum or plasma albumin/glob ulin mass ratioOrdered By: Dr. Card on 09-18-2022 Albumin/Globulin [Mass ratio] 0.7 {ratio} 0.9-2.4 [facility] Serum or plasma calcium xiomara urement (mass/volume)Ordered By: Dr. Card on 09-18-2022 Calcium [Mass/Vol] 9.0 mg/dL 8.5-10.1 [facility] Serum or plasma creatinine m easurement (mass/volume)Ordered By: Dr. Card on 09-18-2022 Creatinine [Mass/Vol] 0.99 mg/dL 0.55-1.02 [facility] Comment on above: The validity of the calculated GFR & GFRAA in patients over 70 years has not been determined. Clinical correlation is essential. Serum or plasma urea nitroge n measurement (mass/volume)Ordered By: Dr. Card on 09-18-2022 Urea nitrogen [Mass/Vol] 18 mg/dL 7-18 [facility] Thin prep Papanicolaou smear with manual screeningOrdered By: Dr. Card on 09-18-2022 Thin prep Papanicolaou smear with manual screening 14 U/L 15-37 [facility] Thin prep Papanicolaou smear with manual screening 2 5-15 [facility] Absolute lymphocyte countOrd ered By: Dr. Black on 09-11-2022 Lymphocytes Auto (Unsp spec) [#/Vol] 1.13 10*3/uL 0.83-4.51 [facility] Basophil percentageOrdered B y: Dr. Black on 09-11-2022 Basophil percentage 325 mg/dL 74-106 [facility] Basophil percentage 7.1 g/dL 6.4-8.2 [facility] Basophil percentage 0.60 mg/dL 0.20-1.00 [facility] Basophil percentage 134 mmol/L 136-145 [facility] Basophil percentage 3.9 mmol/L 3.5-5.1 [facility] Basophil percentage 100 mmol/L 98-107 [facility] Basophil percentage 1.2 mmol/L 0.4-2.0 [facility] Basophils (Bld) [#/Vol] 14.8 10*3/uL 4.4-11.0 [facility] Basophils (Bld) [#/Vol] 12.7 10*3/uL 2.0-7.7 [facility] Basophils/100 WBC (Bld) 85.8 % 47-70 [facility] Basophils/100 WBC (Bld) 0.8 % 0-5 [facility] Basophils/100 WBC (Bld) 0.6 % 0-1 [facility] Bilirubin [Mass/Vol] 0.60 mg/dL 0.20-1.00 [facility] Comment on above: For patients on eltr ombopag therapy, use of Dimension [place] TBIL is not recommended. Chloride [Moles/Vol] 100 mmol/L 98-107 [facility] Eosinophils/100 WBC (Bld) 0.8 % 0-5 [facility] Glucose [Mass/Vol] 325 mg/dL 74-106 [facility] Comment on above: Glucose result great er than or equal to 200 mg/dLsuggests DIABETES MELLITUS per A.D.A. criteria. Lactate [Moles/Vol] 1.2 mmol/L 0.4-2.0 [facility] Neutrophils (Bld) [#/Vol] 12.7 10*3/uL 2.0-7.7 [facility] Neutrophils/100 WBC (Bld) 85.8 % 47-70 [facility] Potassium [Moles/Vol] 3.9 mmol/L 3.5-5.1 [facility] Protein [Mass/Vol] 7.1 g/dL 6.4-8.2 [facility] Sodium [Moles/Vol] 134 mmol/L 136-145 [facility] WBC (Bld) [#/Vol] 14.8 10*3/uL 4.4-11.0 [facility] Basophil percentage 0 SEEN /hpf 0-5 [facility] Bilirubin Test strip Ql (U)O rdered By: Dr. Black on 09-11-2022 Bilirubin Ql (U) Negative Negative [facility] Blood erythrocytes count (nu mber/volume)Ordered By: Dr. Black on 09-11-2022 RBC (Bld) [#/Vol] 5.71 10*6/uL 4.2-5.4 [facility] Blood hemoglobin measurement (mass/volume)Ordered By: Dr. Black on 09-11-2022 Hemoglobin (Bld) [Mass/Vol] 15.7 g/dL 12.0-15.0 [facility] Blood lymphocytes/100 leukoc ytesOrdered By: Dr. Black on 09-11-2022 Lymphocytes/100 WBC (Bld) 7.6 % 19-41 [facility] Blood monocytes/100 leukocyt esOrdered By: Dr. Black on 09-11-2022 Monocytes/100 WBC (Bld) 4.7 % 0-10 [facility] Blood platelet mean volumeOr dered By: Dr. Black on 09-11-2022 Platelet mean volume (Bld) [Entitic vol] 9.3 fL 6.2-12.0 [facility] Determination of erythrocyte mean corpuscular volume (MCV)Ordered By: Dr. Black on 09-11-2022 MCV (RBC) [Entitic vol] 83.7 fL 81-99 [facility] Hematocrit Auto (Bld) [Volum e fraction]Ordered By: Dr. Black on 09-11-2022 Hematocrit (Bld) [Volume fraction] 47.8 % 37-47 [facility] Ketones Test strip Ql (U)Ord ered By: Dr. Black on 09-11-2022 Ketones Ql (U) Negative Negative [facility] Laboratory - Chemistry and C hemistry - challengeOrdered By: Dr. Black on 09-11-2022 ALP [Catalytic activity/Vol] 115 U/L 45-117 [facility] ALT [Catalytic activity/Vol] 21 U/L 13-56 [facility] CO2 [Moles/Vol] 31.0 mmol/L 21.0-32.0 [facility] Globulin (S) [Mass/Vol] 4.1 g/dL 2.2-4.2 [facility] Lipase [Catalytic activity/Vol] 172 U/L 73-393 [facility] Urea nitrogen/Creatinine [Mass ratio] 14.1 mg/mg 10-20 [facility] Laboratory - Hematology and Cell countsOrdered By: Dr. Black on 09-11-2022 Erythrocyte distribution width (RBC) [Entitic vol] 38.4 fL 35.1-43.9 [facility] Erythrocyte distribution width (RBC) [Ratio] 12.8 % 11.6-14.6 [facility] Immature granulocytes/100 WBC (Bld) 0.500 % 0.0-0.9 [facility] Comment on above: IG% - Immature Granu locytes (promyelocytes, myelocytes and metamyelocytes) > 1% indicates that a LEFT SHIFT is Present. MCH (RBC) [Entitic mass] 27.5 pg 27.0-32.0 [facility] Nucleated RBC/100 WBC (Bld) [Ratio] 0 % 0-5 [facility] MCHC Auto (RBC) [Mass/Vol]Or dered By: Dr. Black on 09-11-2022 MCHC (RBC) [Mass/Vol] 32.8 g/dL 32-36 [facility] Mucus LM Ql (Urine sed)Order ed By: Dr. Black on 09-11-2022 Mucus Ql (Urine sed) 0 SEEN /hpf [facility] Nitrite Test strip Ql (U)Ord ered By: Dr. Black on 09-11-2022 Nitrite Ql (U) Negative Negative [facility] No Panel InformationOrdered By: Dr. Black on 09-11-2022 Estimated Creatinine Clearance Calc 91.16 ml/min [facility] Estimated GFR (MDRD) Amer 112 mL/min >60 [facility] Comment on above: GFR Calc Estimated GFR (MDRD) Non-Af Amer 93 mL/min >60 [facility] Comment on above: Non- GFR Calc 27.5 pg 27.0-32.0 [facility] 12.8 % 11.6-14.6 [facility] 38.4 fl 35.1-43.9 [facility] 0.500 % 0.0-0.9 [facility] 0 % 0-5 [facility] 93 mL/min >60 [facility] 112 mL/min >60 [facility] 91.16 ml/min [facility] 14.1 RATIO 10-20 [facility] 4.1 g/dL 2.2-4.2 [facility] 172 U/L 73-393 [facility] 115 U/L 45-117 [facility] 21 U/L 13-56 [facility] 31.0 mmol/L 21.0-32.0 [facility] Platelets bldOrdered By: Dr. Black on 09-11-2022 Platelets (Bld) [#/Vol] 290 10*3/uL 150-450 [facility] Protein Test strip Ql (U)Ord ered By: Dr. Black on 09-11-2022 Protein Ql (U) 100 mg/dl Negative [facility] Serum or plasma albumin xiomara urement (mass/volume)Ordered By: Dr. Black on 09-11-2022 Albumin [Mass/Vol] 3.0 g/dL 3.2-5.0 [facility] Serum or plasma albumin/glob ulin mass ratioOrdered By: Dr. Black on 09-11-2022 Albumin/Globulin [Mass ratio] 0.7 {ratio} 0.9-2.4 [facility] Serum or plasma calcium xiomara urement (mass/volume)Ordered By: Dr. Black on 09-11-2022 Calcium [Mass/Vol] 8.9 mg/dL 8.5-10.1 [facility] Serum or plasma creatinine m easurement (mass/volume)Ordered By: Dr. Black on 09-11-2022 Creatinine [Mass/Vol] 0.71 mg/dL 0.55-1.02 [facility] Comment on above: The validity of the calculated GFR & GFRAA in patients over 70 years has not been determined. Clinical correlation is essential. Serum or plasma urea nitroge n measurement (mass/volume)Ordered By: Dr. Black on 09-11-2022 Urea nitrogen [Mass/Vol] 10 mg/dL 7-18 [facility] Squamous epithelial cells de tection in urine sediment by light microscopyOrdered By: Dr. Black on 09-11-2022 Epithelial cells.squamous LM Ql (Urine sed) 0-5 SEEN /hpf 5-10 [facility] Thin prep Papanicolaou smear with manual screeningOrdered By: Dr. Black on 09-11-2022 Thin prep Papanicolaou smear with manual screening 18 U/L 15-37 [facility] Thin prep Papanicolaou smear with manual screening 3 5-15 [facility] Urine blood detectionOrdered By: Dr. Black on 09-11-2022 RBC Ql (U) 25 /ul Negative [facility] RBC Ql (U) 0 SEEN /hpf 0-5 [facility] Urine clarityOrdered By: Dr. Black on 09-11-2022 Clarity (U) Clear Clear [facility] Urine color determinationOrd ered By: Dr. Black on 09-11-2022 Color (U) Yellow Yellow [facility] Urine glucose detectionOrder ed By: Dr. Black on 09-11-2022 Glucose Ql (U) 1000 mg/dl Normal [facility] Urine leukocyte esterase det ection by dipstickOrdered By: Dr. Black on 09-11-2022 Leukocyte esterase Test strip Ql (U) Negative Negative [facility] Urine pHOrdered By: Dr. Artemio jean on 09-11-2022 pH (U) 7.0 [pH] 5.0 - 8.0 [facility] Urine sediment bacteria coun t by microscopy (number/high power field)Ordered By: Dr. Black on 09-11-2022 Bacteria LM.HPF (Urine sed) [#/Area] 0 /[HPF] None Seen [facility] Urine specific gravity measu rementOrdered By: Dr. Black on 09-11-2022 Specific gravity (U) [Rel density] 1.015 1.002-1.03 0 [facility] Urobilinogen Auto test strip Ql (U)Ordered By: Dr. Black on 09-11-2022 Urobilinogen Ql (U) Normal mg/dl Normal [facility] Absolute lymphocyte countOrd ered By: Dr. Christina on 09-09-2022 Lymphocytes Auto (Unsp spec) [#/Vol] 1.70 10*3/uL 0.83-4.51 [facility] Basophil percentageOrdered B y: Dr. Christina on 09-09-2022 Basophil percentage 0-5 SEEN /hpf 0-5 [facility] Basophil percentage 306 mg/dL 74-106 [facility] Basophil percentage 6.7 g/dL 6.4-8.2 [facility] Basophil percentage 0.70 mg/dL 0.20-1.00 [facility] Basophil percentage 134 mmol/L 136-145 [facility] Basophil percentage 3.5 mmol/L 3.5-5.1 [facility] Basophil percentage 98 mmol/L 98-107 [facility] Basophils (Bld) [#/Vol] 9.0 10*3/uL 4.4-11.0 [facility] Basophils (Bld) [#/Vol] 6.5 10*3/uL 2.0-7.7 [facility] Basophils/100 WBC (Bld) 1.0 % 0-1 [facility] Basophils/100 WBC (Bld) 72.3 % 47-70 [facility] Basophils/100 WBC (Bld) 1.4 % 0-5 [facility] Bilirubin [Mass/Vol] 0.70 mg/dL 0.20-1.00 [facility] Comment on above: For patients on eltr ombopag therapy, use of Dimension [place] TBIL is not recommended. Chloride [Moles/Vol] 98 mmol/L 98-107 [facility] Eosinophils/100 WBC (Bld) 1.4 % 0-5 [facility] Glucose [Mass/Vol] 306 mg/dL 74-106 [facility] Comment on above: Glucose result great er than or equal to 200 mg/dLsuggests DIABETES MELLITUS per A.D.A. criteria. Neutrophils (Bld) [#/Vol] 6.5 10*3/uL 2.0-7.7 [facility] Neutrophils/100 WBC (Bld) 72.3 % 47-70 [facility] Potassium [Moles/Vol] 3.5 mmol/L 3.5-5.1 [facility] Protein [Mass/Vol] 6.7 g/dL 6.4-8.2 [facility] Sodium [Moles/Vol] 134 mmol/L 136-145 [facility] WBC (Bld) [#/Vol] 9.0 10*3/uL 4.4-11.0 [facility] Bilirubin Test strip Ql (U)O rdered By: Dr. Christina on 09-09-2022 Bilirubin Ql (U) Negative Negative [facility] Blood erythrocytes count (nu mber/volume)Ordered By: Dr. Christina on 09-09-2022 RBC (Bld) [#/Vol] 5.26 10*6/uL 4.2-5.4 [facility] Blood hemoglobin measurement (mass/volume)Ordered By: Dr. Christina on 09-09-2022 Hemoglobin (Bld) [Mass/Vol] 14.3 g/dL 12.0-15.0 [facility] Blood lymphocytes/100 leukoc ytesOrdered By: Dr. Christina on 09-09-2022 Lymphocytes/100 WBC (Bld) 19.0 % 19-41 [facility] Blood monocytes/100 leukocyt esOrdered By: Dr. Christina on 09-09-2022 Monocytes/100 WBC (Bld) 6.0 % 0-10 [facility] Blood platelet mean volumeOr dered By: Dr. Christina on 09-09-2022 Platelet mean volume (Bld) [Entitic vol] 9.2 fL 6.2-12.0 [facility] Determination of erythrocyte mean corpuscular volume (MCV)Ordered By: Dr. Christina on 09-09-2022 MCV (RBC) [Entitic vol] 83.1 fL 81-99 [facility] Direct bilirubinOrdered By: Dr. Christina on 09-09-2022 Bilirubin.direct [Mass/Vol] 0.19 mg/dL 0.00-0.30 [facility] Hematocrit Auto (Bld) [Volum e fraction]Ordered By: Dr. Christina on 09-09-2022 Hematocrit (Bld) [Volume fraction] 43.7 % 37-47 [facility] Ketones Test strip Ql (U)Ord ered By: Dr. Christina on 09-09-2022 Ketones Ql (U) Negative Negative [facility] Laboratory - Chemistry and C hemistry - challengeOrdered By: Dr. Christina on 09-09-2022 ALP [Catalytic activity/Vol] 109 U/L 45-117 [facility] ALT [Catalytic activity/Vol] 18 U/L 13-56 [facility] CO2 [Moles/Vol] 31.0 mmol/L 21.0-32.0 [facility] Globulin (S) [Mass/Vol] 3.9 g/dL 2.2-4.2 [facility] Lipase [Catalytic activity/Vol] 47 U/L 73-393 [facility] Urea nitrogen/Creatinine [Mass ratio] 9.0 mg/mg 10-20 [facility] Laboratory - Hematology and Cell countsOrdered By: Dr. Christina on 09-09-2022 Erythrocyte distribution width (RBC) [Entitic vol] 38.2 fL 35.1-43.9 [facility] Erythrocyte distribution width (RBC) [Ratio] 12.7 % 11.6-14.6 [facility] Immature granulocytes/100 WBC (Bld) 0.300 % 0.0-0.9 [facility] Comment on above: IG% - Immature Granu locytes (promyelocytes, myelocytes and metamyelocytes) > 1% indicates that a LEFT SHIFT is Present. MCH (RBC) [Entitic mass] 27.2 pg 27.0-32.0 [facility] Nucleated RBC/100 WBC (Bld) [Ratio] 0 % 0-5 [facility] MCHC Auto (RBC) [Mass/Vol]Or dered By: Dr. Christina on 09-09-2022 MCHC (RBC) [Mass/Vol] 32.7 g/dL 32-36 [facility] Mucus LM Ql (Urine sed)Order ed By: Dr. Christina on 09-09-2022 Mucus Ql (Urine sed) 0 SEEN /hpf [facility] Nitrite Test strip Ql (U)Ord ered By: Dr. Christina on 09-09-2022 Nitrite Ql (U) Negative Negative [facility] No Panel InformationOrdered By: Dr. Christina on 09-09-2022 Estimated Creatinine Clearance Calc 96.60 ml/min [facility] Estimated GFR (MDRD) Amer 120 mL/min >60 [facility] Comment on above: GFR Calc Estimated GFR (MDRD) Non-Af Amer 99 mL/min >60 [facility] Comment on above: Non- GFR Calc Troponin I High Sensitivity 14 pg/mL 3.0-54.0 [facility] Comment on above: Please Note: New Junie t Units and Gender Specific Reference Ranges. For more information see Policy Stat Procedure [place] High Sensitivity Troponin (TNIH) and attachments. 27.2 pg 27.0-32.0 [facility] 12.7 % 11.6-14.6 [facility] 38.2 fl 35.1-43.9 [facility] 0.300 % 0.0-0.9 [facility] 0 % 0-5 [facility] 99 mL/min >60 [facility] 120 mL/min >60 [facility] 96.60 ml/min [facility] 9.0 RATIO 10-20 [facility] 3.9 g/dL 2.2-4.2 [facility] 47 U/L 73-393 [facility] 14 pg/mL 3.0-54.0 [facility] 109 U/L 45-117 [facility] 18 U/L 13-56 [facility] 31.0 mmol/L 21.0-32.0 [facility] Platelets bldOrdered By: Dr. Christina on 09-09-2022 Platelets (Bld) [#/Vol] 290 10*3/uL 150-450 [facility] Protein Test strip Ql (U)Ord ered By: Dr. Christina on 09-09-2022 Protein Ql (U) 100 mg/dl Negative [facility] Serum or plasma albumin xiomara urement (mass/volume)Ordered By: Dr. Christina on 09-09-2022 Albumin [Mass/Vol] 2.8 g/dL 3.2-5.0 [facility] Serum or plasma calcium xiomara urement (mass/volume)Ordered By: Dr. Christina on 09-09-2022 Calcium [Mass/Vol] 8.8 mg/dL 8.5-10.1 [facility] Serum or plasma creatinine m easurement (mass/volume)Ordered By: Dr. Christina on 09-09-2022 Creatinine [Mass/Vol] 0.67 mg/dL 0.55-1.02 [facility] Comment on above: The validity of the calculated GFR & GFRAA in patients over 70 years has not been determined. Clinical correlation is essential. Serum or plasma urea nitroge n measurement (mass/volume)Ordered By: Dr. Christina on 09-09-2022 Urea nitrogen [Mass/Vol] 6 mg/dL 7-18 [facility] Squamous epithelial cells de tection in urine sediment by light microscopyOrdered By: Dr. Christina on 09-09-2022 Epithelial cells.squamous LM Ql (Urine sed) 5-10 SEEN /hpf 5-10 [facility] Thin prep Papanicolaou smear with manual screeningOrdered By: Dr. Christina on 09-09-2022 Thin prep Papanicolaou smear with manual screening 18 U/L 15-37 [facility] Thin prep Papanicolaou smear with manual screening 5 5-15 [facility] Urine blood detectionOrdered By: Dr. Christina on 09-09-2022 RBC Ql (U) 25 /ul Negative [facility] RBC Ql (U) 0-5 SEEN /hpf 0-5 [facility] Urine clarityOrdered By: Dr. Christina on 09-09-2022 Clarity (U) Sl. Cloudy Clear [facility] Urine color determinationOrd ered By: Dr. Christina on 09-09-2022 Color (U) Yellow Yellow [facility] Urine glucose detectionOrder ed By: Dr. Christina on 09-09-2022 Glucose Ql (U) 1000 mg/dl Normal [facility] Urine leukocyte esterase det ection by dipstickOrdered By: Dr. Christina on 09-09-2022 Leukocyte esterase Test strip Ql (U) 25 /ul Negative [facility] Urine pHOrdered By: Dr. Davis maxwell on 09-09-2022 pH (U) 8.0 [pH] 5.0 - 8.0 [facility] Urine sediment bacteria coun t by microscopy (number/high power field)Ordered By: Dr. Christina on 09-09-2022 Bacteria LM.HPF (Urine sed) [#/Area] 0 /[HPF] None Seen [facility] Urine specific gravity measu rementOrdered By: Dr. Christina on 09-09-2022 Specific gravity (U) [Rel density] 1.015 1.002-1.03 0 [facility] Urobilinogen Auto test strip Ql (U)Ordered By: Dr. Christina on 09-09-2022 Urobilinogen Ql (U) Normal mg/dl Normal [facility] Absolute lymphocyte countOrd ered By: Dr. Hanley on 09-05-2022 Lymphocytes Auto (Unsp spec) [#/Vol] 1.04 10*3/uL 0.83-4.51 [facility] Basophil percentageOrdered B y: Dr. Hanley on 09-05-2022 Basophil percentage 330 mg/dL 74-106 [facility] Basophil percentage 134 mmol/L 136-145 [facility] Basophil percentage 3.7 mmol/L 3.5-5.1 [facility] Basophil percentage 100 mmol/L 98-107 [facility] Basophils (Bld) [#/Vol] 8.5 10*3/uL 4.4-11.0 [facility] Basophils (Bld) [#/Vol] 6.8 10*3/uL 2.0-7.7 [facility] Basophils/100 WBC (Bld) 0.8 % 0-1 [facility] Basophils/100 WBC (Bld) 80.1 % 47-70 [facility] Chloride [Moles/Vol] 100 mmol/L 98-107 [facility] Eosinophils/100 WBC (Bld) 0.8 % 0-5 [facility] Glucose [Mass/Vol] 330 mg/dL 74-106 [facility] Comment on above: Glucose result great er than or equal to 200 mg/dLsuggests DIABETES MELLITUS per A.D.A. criteria. Neutrophils (Bld) [#/Vol] 6.8 10*3/uL 2.0-7.7 [facility] Neutrophils/100 WBC (Bld) 80.1 % 47-70 [facility] Potassium [Moles/Vol] 3.7 mmol/L 3.5-5.1 [facility] Sodium [Moles/Vol] 134 mmol/L 136-145 [facility] WBC (Bld) [#/Vol] 8.5 10*3/uL 4.4-11.0 [facility] Blood erythrocytes count (nu mber/volume)Ordered By: Dr. Hanley on 09-05-2022 RBC (Bld) [#/Vol] 5.21 10*6/uL 4.2-5.4 [facility] Blood hemoglobin measurement (mass/volume)Ordered By: Dr. Hanley on 09-05-2022 Hemoglobin (Bld) [Mass/Vol] 14.3 g/dL 12.0-15.0 [facility] Blood lymphocytes/100 leukoc ytesOrdered By: Dr. Hanley on 09-05-2022 Lymphocytes/100 WBC (Bld) 12.2 % 19-41 [facility] Blood monocytes/100 leukocyt esOrdered By: Dr. Hanley on 09-05-2022 Monocytes/100 WBC (Bld) 5.7 % 0-10 [facility] Blood platelet mean volumeOr dered By: Dr. Hanley on 09-05-2022 Platelet mean volume (Bld) [Entitic vol] 9.6 fL 6.2-12.0 [facility] Determination of erythrocyte mean corpuscular volume (MCV)Ordered By: Dr. Hanley on 09-05-2022 MCV (RBC) [Entitic vol] 84.3 fL 81-99 [facility] Hematocrit Auto (Bld) [Volum e fraction]Ordered By: Dr. Hanley on 09-05-2022 Hematocrit (Bld) [Volume fraction] 43.9 % 37-47 [facility] Laboratory - Chemistry and C hemistry - challengeOrdered By: Dr. Hanley on 09-05-2022 CO2 [Moles/Vol] 30.0 mmol/L 21.0-32.0 [facility] Urea nitrogen/Creatinine [Mass ratio] 5.7 mg/mg 10-20 [facility] Laboratory - Hematology and Cell countsOrdered By: Dr. Hanley on 09-05-2022 Erythrocyte distribution width (RBC) [Entitic vol] 38.6 fL 35.1-43.9 [facility] Erythrocyte distribution width (RBC) [Ratio] 12.6 % 11.6-14.6 [facility] Immature granulocytes/100 WBC (Bld) 0.400 % 0.0-0.9 [facility] Comment on above: IG% - Immature Granu locytes (promyelocytes, myelocytes and metamyelocytes) > 1% indicates that a LEFT SHIFT is Present. MCH (RBC) [Entitic mass] 27.4 pg 27.0-32.0 [facility] Nucleated RBC/100 WBC (Bld) [Ratio] 0 % 0-5 [facility] Laboratory - Microbiology an d Antimicrobial susceptibilityOrdered By: Dr. Rawls on 09-05-2022 Bacteria identified Cx Nom (Bld) No growth in 5 days. [facility] MCHC Auto (RBC) [Mass/Vol]Or dered By: Dr. Hanley on 09-05-2022 MCHC (RBC) [Mass/Vol] 32.6 g/dL 32-36 [facility] No Panel InformationOrdered By: Dr. Hanley on 09-05-2022 Estimated Creatinine Clearance Calc 92.46 ml/min [facility] Estimated GFR (MDRD) Amer 114 mL/min >60 [facility] Comment on above: GFR Calc Estimated GFR (MDRD) Non-Af Amer 94 mL/min >60 [facility] Comment on above: Non- GFR Calc 27.4 pg 27.0-32.0 [facility] 12.6 % 11.6-14.6 [facility] 38.6 fl 35.1-43.9 [facility] 0.400 % 0.0-0.9 [facility] 0 % 0-5 [facility] 94 mL/min >60 [facility] 114 mL/min >60 [facility] 92.46 ml/min [facility] 5.7 RATIO 10-20 [facility] 30.0 mmol/L 21.0-32.0 [facility] No Panel InformationOrdered By: Dr. Rawls on 09-05-2022 No growth in 5 days. [facility] Platelets bldOrdered By: Dr. Hanley on 09-05-2022 Platelets (Bld) [#/Vol] 234 10*3/uL 150-450 [facility] Serum or plasma calcium xiomara urement (mass/volume)Ordered By: Dr. Hanley on 09-05-2022 Calcium [Mass/Vol] 9.1 mg/dL 8.5-10.1 [facility] Serum or plasma creatinine m easurement (mass/volume)Ordered By: Dr. Hanley on 09-05-2022 Creatinine [Mass/Vol] 0.70 mg/dL 0.55-1.02 [facility] Comment on above: The validity of the calculated GFR & GFRAA in patients over 70 years has not been determined. Clinical correlation is essential. Serum or plasma urea nitroge n measurement (mass/volume)Ordered By: Dr. Hanley on 09-05-2022 Urea nitrogen [Mass/Vol] 4 mg/dL 7-18 [facility] Thin prep Papanicolaou smear with manual screeningOrdered By: Dr. Hanley on 09-05-2022 Thin prep Papanicolaou smear with manual screening 4 5-15 [facility] Glucose Glucometer (BldC) [M ass/Vol]Ordered By: Dr. Forde on 09-02-2022 Glucose [Mass/Vol] 211 mg/dL 74-106 [facility] Comment on above: MANAGEMENT OF PATIEN T CARE PER NURSING PROTOCOL Absolute lymphocyte countOrd ered By: Dr. Forde on 08-31-2022 Lymphocytes Auto (Unsp spec) [#/Vol] 1.81 10*3/uL 0.83-4.51 [facility] Bacteria identified Cx Nom ( U)Ordered By: Dr. Rawls on 08-31-2022 Culture, urine Positive [facility] Basophil percentageOrdered B y: Dr. Forde on 08-31-2022 Basophil percentage 221 mg/dL 74-106 [facility] Basophil percentage 137 mmol/L 136-145 [facility] Basophil percentage 3.7 mmol/L 3.5-5.1 [facility] Basophil percentage 108 mmol/L 98-107 [facility] Basophils (Bld) [#/Vol] 6.8 10*3/uL 4.4-11.0 [facility] Basophils (Bld) [#/Vol] 4.4 10*3/uL 2.0-7.7 [facility] Basophils/100 WBC (Bld) 0.7 % 0-1 [facility] Basophils/100 WBC (Bld) 64.6 % 47-70 [facility] Basophils/100 WBC (Bld) 1.3 % 0-5 [facility] Chloride [Moles/Vol] 108 mmol/L 98-107 [facility] Eosinophils/100 WBC (Bld) 1.3 % 0-5 [facility] Glucose [Mass/Vol] 221 mg/dL 74-106 [facility] Comment on above: Glucose result great er than or equal to 200 mg/dLsuggests DIABETES MELLITUS per A.D.A. criteria. Neutrophils (Bld) [#/Vol] 4.4 10*3/uL 2.0-7.7 [facility] Neutrophils/100 WBC (Bld) 64.6 % 47-70 [facility] Potassium [Moles/Vol] 3.7 mmol/L 3.5-5.1 [facility] Sodium [Moles/Vol] 137 mmol/L 136-145 [facility] WBC (Bld) [#/Vol] 6.8 10*3/uL 4.4-11.0 [facility] Blood erythrocytes count (nu mber/volume)Ordered By: Dr. Forde on 08-31-2022 RBC (Bld) [#/Vol] 4.86 10*6/uL 4.2-5.4 [facility] Blood hemoglobin measurement (mass/volume)Ordered By: Dr. Forde on 08-31-2022 Hemoglobin (Bld) [Mass/Vol] 13.6 g/dL 12.0-15.0 [facility] Blood lymphocytes/100 leukoc ytesOrdered By: Dr. Forde on 08-31-2022 Lymphocytes/100 WBC (Bld) 26.6 % 19-41 [facility] Blood monocytes/100 leukocyt esOrdered By: Dr. Forde on 08-31-2022 Monocytes/100 WBC (Bld) 6.5 % 0-10 [facility] Blood platelet mean volumeOr dered By: Dr. Forde on 08-31-2022 Platelet mean volume (Bld) [Entitic vol] 9.1 fL 6.2-12.0 [facility] Culture, urineOrdered By: Dr Carmelo Rawls on 08-31-2022 Bacteria identified Cx Nom (U) Positive [facility] Determination of erythrocyte mean corpuscular volume (MCV)Ordered By: Dr. Forde on 08-31-2022 MCV (RBC) [Entitic vol] 85.4 fL 81-99 [facility] Hematocrit Auto (Bld) [Volum e fraction]Ordered By: Dr. Forde on 08-31-2022 Hematocrit (Bld) [Volume fraction] 41.5 % 37-47 [facility] Laboratory - Chemistry and C hemistry - challengeOrdered By: Dr. Forde on 08-31-2022 CO2 [Moles/Vol] 26.0 mmol/L 21.0-32.0 [facility] Urea nitrogen/Creatinine [Mass ratio] 14.6 mg/mg 10-20 [facility] Laboratory - Hematology and Cell countsOrdered By: Dr. Forde on 08-31-2022 Erythrocyte distribution width (RBC) [Entitic vol] 39.9 fL 35.1-43.9 [facility] Erythrocyte distribution width (RBC) [Ratio] 13.0 % 11.6-14.6 [facility] Immature granulocytes/100 WBC (Bld) 0.300 % 0.0-0.9 [facility] Comment on above: IG% - Immature Granu locytes (promyelocytes, myelocytes and metamyelocytes) > 1% indicates that a LEFT SHIFT is Present. MCH (RBC) [Entitic mass] 28.0 pg 27.0-32.0 [facility] Nucleated RBC/100 WBC (Bld) [Ratio] 0 % 0-5 [facility] MCHC Auto (RBC) [Mass/Vol]Or dered By: Dr. Forde on 08-31-2022 MCHC (RBC) [Mass/Vol] 32.8 g/dL 32-36 [facility] No Panel InformationOrdered By: Dr. Forde on 08-31-2022 Estimated Creatinine Clearance Calc 104.39 ml/min [facility] Estimated GFR (MDRD) Amer 131 mL/min >60 [facility] Comment on above: GFR Calc Estimated GFR (MDRD) Non-Af Amer 109 mL/min >60 [facility] Comment on above: Non- GFR Calc 28.0 pg 27.0-32.0 [facility] 13.0 % 11.6-14.6 [facility] 39.9 fl 35.1-43.9 [facility] 0.300 % 0.0-0.9 [facility] 0 % 0-5 [facility] 109 mL/min >60 [facility] 131 mL/min >60 [facility] 104.39 ml/min [facility] 14.6 RATIO 10-20 [facility] 26.0 mmol/L 21.0-32.0 [facility] Platelets bldOrdered By: Dr. Forde on 08-31-2022 Platelets (Bld) [#/Vol] 227 10*3/uL 150-450 [facility] Serum or plasma calcium xiomara urement (mass/volume)Ordered By: Dr. Forde on 08-31-2022 Calcium [Mass/Vol] 8.8 mg/dL 8.5-10.1 [facility] Serum or plasma creatinine m easurement (mass/volume)Ordered By: Dr. Forde on 08-31-2022 Creatinine [Mass/Vol] 0.62 mg/dL 0.55-1.02 [facility] Comment on above: The validity of the calculated GFR & GFRAA in patients over 70 years has not been determined. Clinical correlation is essential. Serum or plasma urea nitroge n measurement (mass/volume)Ordered By: Dr. Forde on 08-31-2022 Urea nitrogen [Mass/Vol] 9 mg/dL 7-18 [facility] Thin prep Papanicolaou smear with manual screeningOrdered By: Dr. Forde on 08-31-2022 Thin prep Papanicolaou smear with manual screening 3 5-15 [facility] Absolute lymphocyte countOrd ered By: Dr. Rawls on 08-30-2022 Lymphocytes Auto (Unsp spec) [#/Vol] 1.33 10*3/uL 0.83-4.51 [facility] Basophil percentageOrdered B y: Dr. Rawls on 08-30-2022 Basophil percentage 1.1 mmol/L 0.4-2.0 [facility] Lactate [Moles/Vol] 1.1 mmol/L 0.4-2.0 [facility] Basophil percentage 7.1 g/dL 6.4-8.2 [facility] Basophil percentage 0.70 mg/dL 0.20-1.00 [facility] Basophils/100 WBC (Bld) 0.6 % 0-1 [facility] Bilirubin [Mass/Vol] 0.70 mg/dL 0.20-1.00 [facility] Comment on above: For patients on eltr ombopag therapy, use of Dimension [place] TBIL is not recommended. Chloride [Moles/Vol] 96 mmol/L 98-107 [facility] Eosinophils/100 WBC (Bld) 0.5 % 0-5 [facility] Glucose [Mass/Vol] 400 mg/dL 74-106 [facility] Comment on above: Glucose result great er than or equal to 200 mg/dLsuggests DIABETES MELLITUS per A.D.A. criteria. Lactate [Moles/Vol] 2.2 mmol/L 0.4-2.0 [facility] Comment on above: Critical Result(s) C alled at: 15:31:02 08/30/2022 by: Eileen Mauricio to [facility]. Results read back by same. Neutrophils (Bld) [#/Vol] 6.7 10*3/uL 2.0-7.7 [facility] Neutrophils/100 WBC (Bld) 77.4 % 47-70 [facility] Potassium [Moles/Vol] 4.0 mmol/L 3.5-5.1 [facility] Protein [Mass/Vol] 7.1 g/dL 6.4-8.2 [facility] Sodium [Moles/Vol] 132 mmol/L 136-145 [facility] WBC (Bld) [#/Vol] 8.6 10*3/uL 4.4-11.0 [facility] Blood erythrocytes count (nu mber/volume)Ordered By: Dr. Rawls on 08-30-2022 RBC (Bld) [#/Vol] 5.43 10*6/uL 4.2-5.4 [facility] Blood hemoglobin measurement (mass/volume)Ordered By: Dr. Rawls on 08-30-2022 Hemoglobin (Bld) [Mass/Vol] 15.0 g/dL 12.0-15.0 [facility] Blood lymphocytes/100 leukoc ytesOrdered By: Dr. Rawls on 08-30-2022 Lymphocytes/100 WBC (Bld) 15.4 % 19-41 [facility] Blood monocytes/100 leukocyt esOrdered By: Dr. Rawls on 08-30-2022 Monocytes/100 WBC (Bld) 5.9 % 0-10 [facility] Blood platelet mean volumeOr dered By: Dr. Rawls on 08-30-2022 Platelet mean volume (Bld) [Entitic vol] 9.1 fL 6.2-12.0 [facility] Determination of erythrocyte mean corpuscular volume (MCV)Ordered By: Dr. Rawls on 08-30-2022 MCV (RBC) [Entitic vol] 83.6 fL 81-99 [facility] Hematocrit Auto (Bld) [Volum e fraction]Ordered By: Dr. Rawls on 08-30-2022 Hematocrit (Bld) [Volume fraction] 45.4 % 37-47 [facility] INR in Blood by Coagulation assayOrdered By: Dr. Rawls on 08-30-2022 INR Coag (Bld) [Relative time] 1.0 {INR} [facility] Laboratory - Chemistry and C hemistry - challengeOrdered By: Dr. Rawls on 08-30-2022 ALP [Catalytic activity/Vol] 133 U/L 45-117 [facility] ALT [Catalytic activity/Vol] 17 U/L 13-56 [facility] CO2 [Moles/Vol] 31.0 mmol/L 21.0-32.0 [facility] Globulin (S) [Mass/Vol] 4.1 g/dL 2.2-4.2 [facility] Urea nitrogen/Creatinine [Mass ratio] 10.1 mg/mg 10-20 [facility] Laboratory - CoagulationOrde red By: Dr. Rawls on 08-30-2022 aPTT Coag (Bld) [Time] 26.7 s 24.1-36.2 [facility] PT Coag (PPP) [Time] 12.6 s 11.7-14.9 [facility] Laboratory - Hematology and Cell countsOrdered By: Dr. Rawls on 08-30-2022 Erythrocyte distribution width (RBC) [Entitic vol] 39.0 fL 35.1-43.9 [facility] Erythrocyte distribution width (RBC) [Ratio] 12.9 % 11.6-14.6 [facility] Immature granulocytes/100 WBC (Bld) 0.200 % 0.0-0.9 [facility] Comment on above: IG% - Immature Granu locytes (promyelocytes, myelocytes and metamyelocytes) > 1% indicates that a LEFT SHIFT is Present. MCH (RBC) [Entitic mass] 27.6 pg 27.0-32.0 [facility] Nucleated RBC/100 WBC (Bld) [Ratio] 0 % 0-5 [facility] MCHC Auto (RBC) [Mass/Vol]Or dered By: Dr. Rawls on 08-30-2022 MCHC (RBC) [Mass/Vol] 33.0 g/dL 32-36 [facility] No Panel InformationOrdered By: Dr. Rawls on 08-30-2022 Estimated Creatinine Clearance Calc 65.38 ml/min [facility] Estimated GFR (MDRD) Amer 76 mL/min >60 [facility] Comment on above: GFR Calc Estimated GFR (MDRD) Non-Af Amer 63 mL/min >60 [facility] Comment on above: Non- GFR Calc 12.6 SECONDS 11.7-14.9 [facility] 26.7 Seconds 24.1-36.2 [facility] 4.1 g/dL 2.2-4.2 [facility] 133 U/L 45-117 [facility] 17 U/L 13-56 [facility] Platelets bldOrdered By: Dr. Rawls on 08-30-2022 Platelets (Bld) [#/Vol] 266 10*3/uL 150-450 [facility] Serum or plasma albumin xiomara urement (mass/volume)Ordered By: Dr. Rawls on 08-30-2022 Albumin [Mass/Vol] 3.0 g/dL 3.2-5.0 [facility] Serum or plasma albumin/glob ulin mass ratioOrdered By: Dr. Rawls on 08-30-2022 Albumin/Globulin [Mass ratio] 0.7 {ratio} 0.9-2.4 [facility] Serum or plasma calcium xiomara urement (mass/volume)Ordered By: Dr. Rawls on 08-30-2022 Calcium [Mass/Vol] 9.1 mg/dL 8.5-10.1 [facility] Serum or plasma creatinine m easurement (mass/volume)Ordered By: Dr. Rawls on 08-30-2022 Creatinine [Mass/Vol] 0.99 mg/dL 0.55-1.02 [facility] Comment on above: The validity of the calculated GFR & GFRAA in patients over 70 years has not been determined. Clinical correlation is essential. Serum or plasma urea nitroge n measurement (mass/volume)Ordered By: Dr. Rawls on 08-30-2022 Urea nitrogen [Mass/Vol] 10 mg/dL 7-18 [facility] Thin prep Papanicolaou smear with manual screeningOrdered By: Dr. Rawls on 08-30-2022 Thin prep Papanicolaou smear with manual screening 15 U/L 15-37 [facility] Thin prep Papanicolaou smear with manual screening 5 5-15 [facility] Whole blood hemoglobin A1c/t otal hemoglobin ratio (mass fraction)Ordered By: Dr. Forde on 08-30-2022 HbA1c (Bld) [Mass fraction] 11.5 % 3.8-5.6 [facility] Comment on above: Normal < 5.7 % Predi abetic 5.7 - 6.4 % Diabetic >or= 6.5 % Please note range changes. Absolute lymphocyte countOrd ered By: Dr. Black on 08-14-2022 Lymphocytes Auto (Unsp spec) [#/Vol] 1.35 10*3/uL 0.83-4.51 [facility] Basophil percentageOrdered B y: Dr. Black on 08-14-2022 Basophil percentage 331 mg/dL 74-106 [facility] Basophil percentage 134 mmol/L 136-145 [facility] Basophil percentage 3.7 mmol/L 3.5-5.1 [facility] Basophil percentage 101 mmol/L 98-107 [facility] Basophils (Bld) [#/Vol] 9.7 10*3/uL 4.4-11.0 [facility] Basophils (Bld) [#/Vol] 7.6 10*3/uL 2.0-7.7 [facility] Basophils/100 WBC (Bld) 0.6 % 0-1 [facility] Basophils/100 WBC (Bld) 78.3 % 47-70 [facility] Basophils/100 WBC (Bld) 0.8 % 0-5 [facility] Chloride [Moles/Vol] 101 mmol/L 98-107 [facility] Eosinophils/100 WBC (Bld) 0.8 % 0-5 [facility] Glucose [Mass/Vol] 331 mg/dL 74-106 [facility] Comment on above: Glucose result great er than or equal to 200 mg/dLsuggests DIABETES MELLITUS per A.D.A. criteria. Neutrophils (Bld) [#/Vol] 7.6 10*3/uL 2.0-7.7 [facility] Neutrophils/100 WBC (Bld) 78.3 % 47-70 [facility] Potassium [Moles/Vol] 3.7 mmol/L 3.5-5.1 [facility] Comment on above: Slight Hemolysis, Re sult may be falsely increased. Sodium [Moles/Vol] 134 mmol/L 136-145 [facility] WBC (Bld) [#/Vol] 9.7 10*3/uL 4.4-11.0 [facility] Blood erythrocytes count (nu mber/volume)Ordered By: Dr. Black on 08-14-2022 RBC (Bld) [#/Vol] 5.16 10*6/uL 4.2-5.4 [facility] Blood hemoglobin measurement (mass/volume)Ordered By: Dr. Black on 08-14-2022 Hemoglobin (Bld) [Mass/Vol] 14.6 g/dL 12.0-15.0 [facility] Blood lymphocytes/100 leukoc ytesOrdered By: Dr. Black on 08-14-2022 Lymphocytes/100 WBC (Bld) 13.9 % 19-41 [facility] Blood monocytes/100 leukocyt esOrdered By: Dr. Black on 08-14-2022 Monocytes/100 WBC (Bld) 5.8 % 0-10 [facility] Blood platelet mean volumeOr dered By: Dr. Black on 08-14-2022 Platelet mean volume (Bld) [Entitic vol] 9.8 fL 6.2-12.0 [facility] Comment on above: FIBRIN NOTED Determination of erythrocyte mean corpuscular volume (MCV)Ordered By: Dr. Black on 08-14-2022 MCV (RBC) [Entitic vol] 83.5 fL 81-99 [facility] Hematocrit Auto (Bld) [Volum e fraction]Ordered By: Dr. Black on 08-14-2022 Hematocrit (Bld) [Volume fraction] 43.1 % 37-47 [facility] Laboratory - Chemistry and C hemistry - challengeOrdered By: Dr. Black on 08-14-2022 CO2 [Moles/Vol] 27.0 mmol/L 21.0-32.0 [facility] Urea nitrogen/Creatinine [Mass ratio] 8.6 mg/mg 10-20 [facility] Laboratory - Hematology and Cell countsOrdered By: Dr. Black on 08-14-2022 Erythrocyte distribution width (RBC) [Entitic vol] 37.5 fL 35.1-43.9 [facility] Erythrocyte distribution width (RBC) [Ratio] 12.3 % 11.6-14.6 [facility] Immature granulocytes/100 WBC (Bld) 0.600 % 0.0-0.9 [facility] Comment on above: IG% - Immature Granu locytes (promyelocytes, myelocytes and metamyelocytes) > 1% indicates that a LEFT SHIFT is Present. MCH (RBC) [Entitic mass] 28.3 pg 27.0-32.0 [facility] Nucleated RBC/100 WBC (Bld) [Ratio] 0.2 % 0-5 [facility] MCHC Auto (RBC) [Mass/Vol]Or dered By: Dr. Black on 08-14-2022 MCHC (RBC) [Mass/Vol] 33.9 g/dL 32-36 [facility] No Panel InformationOrdered By: Dr. Black on 08-14-2022 Estimated Creatinine Clearance Calc 62.33 ml/min [facility] Estimated GFR (MDRD) Amer 71 mL/min >60 [facility] Comment on above: GFR Calc Estimated GFR (MDRD) Non-Af Amer 59 mL/min >60 [facility] Comment on above: Non- GFR Calc 28.3 pg 27.0-32.0 [facility] 12.3 % 11.6-14.6 [facility] 37.5 fl 35.1-43.9 [facility] 0.600 % 0.0-0.9 [facility] 0.2 % 0-5 [facility] 59 mL/min >60 [facility] 71 mL/min >60 [facility] 62.33 ml/min [facility] 8.6 RATIO 10-20 [facility] 27.0 mmol/L 21.0-32.0 [facility] Platelets bldOrdered By: Dr. Black on 08-14-2022 Platelets (Bld) [#/Vol] 220 10*3/uL 150-450 [facility] Serum or plasma calcium xiomara urement (mass/volume)Ordered By: Dr. Black on 08-14-2022 Calcium [Mass/Vol] 8.9 mg/dL 8.5-10.1 [facility] Serum or plasma creatinine m easurement (mass/volume)Ordered By: Dr. Black on 08-14-2022 Creatinine [Mass/Vol] 1.05 mg/dL 0.55-1.02 [facility] Comment on above: The validity of the calculated GFR & GFRAA in patients over 70 years has not been determined. Clinical correlation is essential. Serum or plasma urea nitroge n measurement (mass/volume)Ordered By: Dr. Black on 08-14-2022 Urea nitrogen [Mass/Vol] 9 mg/dL 7-18 [facility] Thin prep Papanicolaou smear with manual screeningOrdered By: Dr. Black on 08-14-2022 Thin prep Papanicolaou smear with manual screening 6 5-15 [facility] Beta hCG serum qualOrdered B y: Dr. Ng on 08-10-2022 Beta HCG ( test) Ql Negative [facility] Absolute lymphocyte countOrd ered By: Darlyn Waleska on 08-06-2022 Lymphocytes Auto (Unsp spec) [#/Vol] 1.46 10*3/uL 0.83-4.51 [facility] Basophil percentageOrdered B y: Darlyn Waleska on 08-06-2022 Basophil percentage 290 mg/dL 74-106 [facility] Basophil percentage 136 mmol/L 136-145 [facility] Basophil percentage 3.5 mmol/L 3.5-5.1 [facility] Basophil percentage 101 mmol/L 98-107 [facility] Basophils (Bld) [#/Vol] 8.7 10*3/uL 4.4-11.0 [facility] Basophils (Bld) [#/Vol] 6.5 10*3/uL 2.0-7.7 [facility] Basophils/100 WBC (Bld) 0.8 % 0-1 [facility] Basophils/100 WBC (Bld) 74.5 % 47-70 [facility] Basophils/100 WBC (Bld) 0.7 % 0-5 [facility] Chloride [Moles/Vol] 101 mmol/L 98-107 [facility] Eosinophils/100 WBC (Bld) 0.7 % 0-5 [facility] Glucose [Mass/Vol] 290 mg/dL 74-106 [facility] Comment on above: Glucose result great er than or equal to 200 mg/dLsuggests DIABETES MELLITUS per A.D.A. criteria. Neutrophils (Bld) [#/Vol] 6.5 10*3/uL 2.0-7.7 [facility] Neutrophils/100 WBC (Bld) 74.5 % 47-70 [facility] Potassium [Moles/Vol] 3.5 mmol/L 3.5-5.1 [facility] Sodium [Moles/Vol] 136 mmol/L 136-145 [facility] WBC (Bld) [#/Vol] 8.7 10*3/uL 4.4-11.0 [facility] Blood erythrocytes count (nu mber/volume)Ordered By: Darlyn Galeano on 08-06-2022 RBC (Bld) [#/Vol] 5.62 10*6/uL 4.2-5.4 [facility] Blood hemoglobin measurement (mass/volume)Ordered By: Darlyn Galeano on 08-06-2022 Hemoglobin (Bld) [Mass/Vol] 15.7 g/dL 12.0-15.0 [facility] Blood lymphocytes/100 leukoc ytesOrdered By: Darlyn Galeano on 08-06-2022 Lymphocytes/100 WBC (Bld) 16.8 % 19-41 [facility] Blood monocytes/100 leukocyt esOrdered By: Darlyn Galeano on 08-06-2022 Monocytes/100 WBC (Bld) 6.9 % 0-10 [facility] Blood platelet mean volumeOr dered By: Darlyn Galeano on 08-06-2022 Platelet mean volume (Bld) [Entitic vol] 9.4 fL 6.2-12.0 [facility] Determination of erythrocyte mean corpuscular volume (MCV)Ordered By: Darlyn Galeano on 08-06-2022 MCV (RBC) [Entitic vol] 85.6 fL 81-99 [facility] Hematocrit Auto (Bld) [Volum e fraction]Ordered By: Darlyn Galeano on 08-06-2022 Hematocrit (Bld) [Volume fraction] 48.1 % 37-47 [facility] Laboratory - Chemistry and C hemistry - challengeOrdered By: Darlyn Galeano on 08-06-2022 CO2 [Moles/Vol] 29.0 mmol/L 21.0-32.0 [facility] Urea nitrogen/Creatinine [Mass ratio] 10.4 mg/mg 10-20 [facility] Laboratory - Hematology and Cell countsOrdered By: Darlyn Galeano on 08-06-2022 Erythrocyte distribution width (RBC) [Entitic vol] 38.5 fL 35.1-43.9 [facility] Erythrocyte distribution width (RBC) [Ratio] 12.2 % 11.6-14.6 [facility] Immature granulocytes/100 WBC (Bld) 0.300 % 0.0-0.9 [facility] Comment on above: IG% - Immature Granu locytes (promyelocytes, myelocytes and metamyelocytes) > 1% indicates that a LEFT SHIFT is Present. MCH (RBC) [Entitic mass] 27.9 pg 27.0-32.0 [facility] Nucleated RBC/100 WBC (Bld) [Ratio] 0 % 0-5 [facility] ([facility]BC) [Mass/Vol]Or dered By: Darlyn Galeano on 08-06-2022 MCHC (RBC) [Mass/Vol] 32.6 g/dL 32-36 [facility] No Panel InformationOrdered By: Darlyn Galeano on 08-06-2022 Estimated Creatinine Clearance Calc 85.00 ml/min [facility] Estimated GFR (MDRD) Amer 101 mL/min >60 [facility] Comment on above: GFR Calc Estimated GFR (MDRD) Non-Af Amer 84 mL/min >60 [facility] Comment on above: Non- GFR Calc 27.9 pg 27.0-32.0 [facility] 12.2 % 11.6-14.6 [facility] 38.5 fl 35.1-43.9 [facility] 0.300 % 0.0-0.9 [facility] 0 % 0-5 [facility] 84 mL/min >60 [facility] 101 mL/min >60 [facility] 85.00 ml/min [facility] 10.4 RATIO 10-20 [facility] 29.0 mmol/L 21.0-32.0 [facility] Platelets bldOrdered By: Renee Galeano on 08-06-2022 Platelets (Bld) [#/Vol] 269 10*3/uL 150-450 [facility] Serum or plasma calcium xiomara urement (mass/volume)Ordered By: Darlyn Galeano on 08-06-2022 Calcium [Mass/Vol] 9.0 mg/dL 8.5-10.1 [facility] Serum or plasma creatinine m easurement (mass/volume)Ordered By: Darlyn Galeano on 08-06-2022 Creatinine [Mass/Vol] 0.77 mg/dL 0.55-1.02 [facility] Comment on above: The validity of the calculated GFR & GFRAA in patients over 70 years has not been determined. Clinical correlation is essential. Serum or plasma urea nitroge n measurement (mass/volume)Ordered By: Darlyn Galeano on 08-06-2022 Urea nitrogen [Mass/Vol] 8 mg/dL 7-18 [facility] Thin prep Papanicolaou smear with manual screeningOrdered By: Darlyn Waleska on 08-06-2022 Thin prep Papanicolaou smear with manual screening 6 5-15 [facility] Absolute lymphocyte countOrd ered By: Vidal Alannils on 08-03-2022 Lymphocytes Auto (Unsp spec) [#/Vol] 0.99 10*3/uL 0.83-4.51 [facility] Basophil percentageOrdered B y: Vidal Solorio on 08-03-2022 Basophil percentage 0-5 SEEN /hpf 0-5 [facility] Basophil percentage 270 mg/dL 74-106 [facility] Basophil percentage 7.6 g/dL 6.4-8.2 [facility] Basophil percentage 1.10 mg/dL 0.20-1.00 [facility] Basophil percentage 135 mmol/L 136-145 [facility] Basophil percentage 4.5 mmol/L 3.5-5.1 [facility] Basophil percentage 99 mmol/L 98-107 [facility] Basophils (Bld) [#/Vol] 12.4 10*3/uL 4.4-11.0 [facility] Basophils (Bld) [#/Vol] 10.8 10*3/uL 2.0-7.7 [facility] Basophils/100 WBC (Bld) 0.6 % 0-1 [facility] Basophils/100 WBC (Bld) 87.4 % 47-70 [facility] Basophils/100 WBC (Bld) 0.4 % 0-5 [facility] Bilirubin [Mass/Vol] 1.10 mg/dL 0.20-1.00 [facility] Comment on above: For patients on eltr ombopag therapy, use of Dimension [place] TBIL is not recommended. Chloride [Moles/Vol] 99 mmol/L 98-107 [facility] Eosinophils/100 WBC (Bld) 0.4 % 0-5 [facility] Glucose [Mass/Vol] 270 mg/dL 74-106 [facility] Comment on above: Glucose result great er than or equal to 200 mg/dLsuggests DIABETES MELLITUS per A.D.A. criteria. Neutrophils (Bld) [#/Vol] 10.8 10*3/uL 2.0-7.7 [facility] Neutrophils/100 WBC (Bld) 87.4 % 47-70 [facility] Potassium [Moles/Vol] 4.5 mmol/L 3.5-5.1 [facility] Protein [Mass/Vol] 7.6 g/dL 6.4-8.2 [facility] Sodium [Moles/Vol] 135 mmol/L 136-145 [facility] WBC (Bld) [#/Vol] 12.4 10*3/uL 4.4-11.0 [facility] Bilirubin Test strip Ql (U)O rdered By: Vidal Solorio on 08-03-2022 Bilirubin Ql (U) Negative Negative [facility] Blood erythrocytes count (nu mber/volume)Ordered By: Vidal Soloroi on 08-03-2022 RBC (Bld) [#/Vol] 5.73 10*6/uL 4.2-5.4 [facility] Blood hemoglobin measurement (mass/volume)Ordered By: Vidal Solorio on 08-03-2022 Hemoglobin (Bld) [Mass/Vol] 16.2 g/dL 12.0-15.0 [facility] Blood lymphocytes/100 leukoc ytesOrdered By: Vidal Solorio on 08-03-2022 Lymphocytes/100 WBC (Bld) 8.0 % 19-41 [facility] Blood monocytes/100 leukocyt esOrdered By: Vidal Solorio on 08-03-2022 Monocytes/100 WBC (Bld) 3.2 % 0-10 [facility] Blood platelet mean volumeOr dered By: Vidal Solorio on 08-03-2022 Platelet mean volume (Bld) [Entitic vol] 9.9 fL 6.2-12.0 [facility] Determination of erythrocyte mean corpuscular volume (MCV)Ordered By: Vidal Solorio on 08-03-2022 MCV (RBC) [Entitic vol] 84.5 fL 81-99 [facility] Hematocrit Auto (Bld) [Volum e fraction]Ordered By: Vidal Solorio on 08-03-2022 Hematocrit (Bld) [Volume fraction] 48.4 % 37-47 [facility] Ketones Test strip Ql (U)Ord ered By: Vidal Solorio on 08-03-2022 Ketones Ql (U) 15 mg/dl Negative [facility] Laboratory - Chemistry and C hemistry - challengeOrdered By: Vidal Solorio on 08-03-2022 ALP [Catalytic activity/Vol] 120 U/L 45-117 [facility] ALT [Catalytic activity/Vol] 15 U/L 13-56 [facility] CO2 [Moles/Vol] 27.0 mmol/L 21.0-32.0 [facility] Globulin (S) [Mass/Vol] 4.5 g/dL 2.2-4.2 [facility] Lipase [Catalytic activity/Vol] 68 U/L 73-393 [facility] Urea nitrogen/Creatinine [Mass ratio] 15.6 mg/mg 10-20 [facility] Laboratory - Hematology and Cell countsOrdered By: Vidal Solorio on 08-03-2022 Erythrocyte distribution width (RBC) [Entitic vol] 37.5 fL 35.1-43.9 [facility] Erythrocyte distribution width (RBC) [Ratio] 12.3 % 11.6-14.6 [facility] Immature granulocytes/100 WBC (Bld) 0.400 % 0.0-0.9 [facility] Comment on above: IG% - Immature Granu locytes (promyelocytes, myelocytes and metamyelocytes) > 1% indicates that a LEFT SHIFT is Present. MCH (RBC) [Entitic mass] 28.3 pg 27.0-32.0 [facility] Nucleated RBC/100 WBC (Bld) [Ratio] 0 % 0-5 [facility] MCHC Auto (RBC) [Mass/Vol]Or dered By: Vidal Solorio on 08-03-2022 MCHC (RBC) [Mass/Vol] 33.5 g/dL 32-36 [facility] Mucus LM Ql (Urine sed)Order ed By: Vidal Solorio on 08-03-2022 Mucus Ql (Urine sed) 0 SEEN /hpf [facility] Nitrite Test strip Ql (U)Ord ered By: Vidal Solorio on 08-03-2022 Nitrite Ql (U) Negative Negative [facility] No Panel InformationOrdered By: Vidal Solorio on 08-03-2022 Troponin I High Sensitivity 12 pg/mL 3.0-54.0 [facility] Comment on above: Please Note: New Junie t Units and Gender Specific Reference Ranges. For more information see Policy Stat Procedure [place] High Sensitivity Troponin (TNIH) and attachments. 12 pg/mL 3.0-54.0 [facility] Estimated Creatinine Clearance Calc 102.27 ml/min [facility] Estimated GFR (MDRD) Amer 126 mL/min >60 [facility] Comment on above: GFR Calc Estimated GFR (MDRD) Non-Af Amer 104 mL/min >60 [facility] Comment on above: Non- GFR Calc 28.3 pg 27.0-32.0 [facility] 12.3 % 11.6-14.6 [facility] 37.5 fl 35.1-43.9 [facility] 0.400 % 0.0-0.9 [facility] 0 % 0-5 [facility] 104 mL/min >60 [facility] 126 mL/min >60 [facility] 102.27 ml/min [facility] 15.6 RATIO 10-20 [facility] 4.5 g/dL 2.2-4.2 [facility] 68 U/L 73-393 [facility] 120 U/L 45-117 [facility] 15 U/L 13-56 [facility] 27.0 mmol/L 21.0-32.0 [facility] Platelets bldOrdered By: Roxi Solorio on 08-03-2022 Platelets (Bld) [#/Vol] 233 10*3/uL 150-450 [facility] Protein Test strip Ql (U)Ord ered By: Vidal Solorio on 08-03-2022 Protein Ql (U) 100 mg/dl Negative [facility] Serum or plasma albumin xiomara urement (mass/volume)Ordered By: Vidal Solorio on 08-03-2022 Albumin [Mass/Vol] 3.1 g/dL 3.2-5.0 [facility] Serum or plasma albumin/glob ulin mass ratioOrdered By: Vidal Solorio on 08-03-2022 Albumin/Globulin [Mass ratio] 0.7 {ratio} 0.9-2.4 [facility] Serum or plasma calcium xiomara urement (mass/volume)Ordered By: Vidal Solorio on 08-03-2022 Calcium [Mass/Vol] 9.4 mg/dL 8.5-10.1 [facility] Serum or plasma creatinine m easurement (mass/volume)Ordered By: Vidal Solorio on 08-03-2022 Creatinine [Mass/Vol] 0.64 mg/dL 0.55-1.02 [facility] Comment on above: The validity of the calculated GFR & GFRAA in patients over 70 years has not been determined. Clinical correlation is essential. Serum or plasma urea nitroge n measurement (mass/volume)Ordered By: Vidal Solorio on 08-03-2022 Urea nitrogen [Mass/Vol] 10 mg/dL 7-18 [facility] Squamous epithelial cells de tection in urine sediment by light microscopyOrdered By: Vidal Solorio on 08-03-2022 Epithelial cells.squamous LM Ql (Urine sed) 0-5 SEEN /hpf 5-10 [facility] Thin prep Papanicolaou smear with manual screeningOrdered By: Vidal Solorio on 08-03-2022 Thin prep Papanicolaou smear with manual screening 15 U/L 15-37 [facility] Thin prep Papanicolaou smear with manual screening 9 5-15 [facility] Urine blood detectionOrdered By: Vidal Solorio on 08-03-2022 RBC Ql (U) 50 /ul Negative [facility] RBC Ql (U) 0-5 SEEN /hpf 0-5 [facility] Urine clarityOrdered By: Roxi Solorio on 08-03-2022 Clarity (U) Clear Clear [facility] Urine color determinationOrd ered By: Vidal Solorio on 08-03-2022 Color (U) Yellow Yellow [facility] Urine glucose detectionOrder ed By: Vidal Solorio on 08-03-2022 Glucose Ql (U) 1000 mg/dl Normal [facility] Urine leukocyte esterase det ection by dipstickOrdered By: Vidal Solorio on 08-03-2022 Leukocyte esterase Test strip Ql (U) 100 /ul Negative [facility] Urine pHOrdered By: Vidal wray on 08-03-2022 pH (U) 7.0 [pH] 5.0 - 8.0 [facility] Urine sediment bacteria coun t by microscopy (number/high power field)Ordered By: Vidal Solorio on 08-03-2022 Bacteria LM.HPF (Urine sed) [#/Area] 0 /[HPF] None Seen [facility] Urine specific gravity measu rementOrdered By: Vidal Solorio on 08-03-2022 Specific gravity (U) [Rel density] 1.010 1.002-1.03 0 [facility] Urobilinogen Auto test strip Ql (U)Ordered By: Vidal Solorio on 08-03-2022 Urobilinogen Ql (U) Normal mg/dl Normal [facility] Absolute lymphocyte countOrd ered By: Dr. Mcneal on 07-25-2022 Lymphocytes Auto (Unsp spec) [#/Vol] 1.18 10*3/uL 0.83-4.51 [facility] Basophil percentageOrdered B y: Dr. Mcneal on 07-25-2022 Basophil percentage 415 mg/dL 74-106 [facility] Basophil percentage 6.6 g/dL 6.4-8.2 [facility] Basophil percentage 0.40 mg/dL 0.20-1.00 [facility] Basophil percentage 135 mmol/L 136-145 [facility] Basophil percentage 4.1 mmol/L 3.5-5.1 [facility] Basophil percentage 101 mmol/L 98-107 [facility] Bilirubin [Mass/Vol] 0.40 mg/dL 0.20-1.00 [facility] Comment on above: For patients on eltr ombopag therapy, use of Dimension [place] TBIL is not recommended. Chloride [Moles/Vol] 101 mmol/L 98-107 [facility] Glucose [Mass/Vol] 415 mg/dL 74-106 [facility] Comment on above: Glucose result great er than or equal to 200 mg/dLsuggests DIABETES MELLITUS per A.D.A. criteria. Potassium [Moles/Vol] 4.1 mmol/L 3.5-5.1 [facility] Comment on above: Slight Hemolysis, Re sult may be falsely increased. Protein [Mass/Vol] 6.6 g/dL 6.4-8.2 [facility] Sodium [Moles/Vol] 135 mmol/L 136-145 [facility] Basophils (Bld) [#/Vol] 8.6 10*3/uL 4.4-11.0 [facility] Basophils (Bld) [#/Vol] 6.8 10*3/uL 2.0-7.7 [facility] Basophils/100 WBC (Bld) 0.7 % 0-1 [facility] Basophils/100 WBC (Bld) 78.2 % 47-70 [facility] Basophils/100 WBC (Bld) 1.6 % 0-5 [facility] Eosinophils/100 WBC (Bld) 1.6 % 0-5 [facility] Neutrophils (Bld) [#/Vol] 6.8 10*3/uL 2.0-7.7 [facility] Neutrophils/100 WBC (Bld) 78.2 % 47-70 [facility] WBC (Bld) [#/Vol] 8.6 10*3/uL 4.4-11.0 [facility] Blood erythrocytes count (nu mber/volume)Ordered By: Dr. Mcneal on 07-25-2022 RBC (Bld) [#/Vol] 5.96 10*6/uL 4.2-5.4 [facility] Blood hemoglobin measurement (mass/volume)Ordered By: Dr. Mcneal on 07-25-2022 Hemoglobin (Bld) [Mass/Vol] 16.9 g/dL 12.0-15.0 [facility] Blood lymphocytes/100 leukoc ytesOrdered By: Dr. Mcneal on 07-25-2022 Lymphocytes/100 WBC (Bld) 13.7 % 19-41 [facility] Blood monocytes/100 leukocyt esOrdered By: Dr. Mcneal on 07-25-2022 Monocytes/100 WBC (Bld) 5.2 % 0-10 [facility] Blood platelet mean volumeOr dered By: Dr. Mcneal on 07-25-2022 Platelet mean volume (Bld) [Entitic vol] 10.2 fL 6.2-12.0 [facility] Determination of erythrocyte mean corpuscular volume (MCV)Ordered By: Dr. Mcneal on 07-25-2022 MCV (RBC) [Entitic vol] 84.6 fL 81-99 [facility] Hematocrit Auto (Bld) [Volum e fraction]Ordered By: Dr. Mcneal on 07-25-2022 Hematocrit (Bld) [Volume fraction] 50.4 % 37-47 [facility] Laboratory - Chemistry and C hemistry - challengeOrdered By: Dr. Mcneal on 07-25-2022 ALP [Catalytic activity/Vol] 113 U/L 45-117 [facility] ALT [Catalytic activity/Vol] 15 U/L 13-56 [facility] CO2 [Moles/Vol] 27.0 mmol/L 21.0-32.0 [facility] Globulin (S) [Mass/Vol] 4.0 g/dL 2.2-4.2 [facility] Lipase [Catalytic activity/Vol] 104 U/L 73-393 [facility] Urea nitrogen/Creatinine [Mass ratio] 14.9 mg/mg 10-20 [facility] Laboratory - Hematology and Cell countsOrdered By: Dr. Mcneal on 07-25-2022 Erythrocyte distribution width (RBC) [Entitic vol] 38.3 fL 35.1-43.9 [facility] Erythrocyte distribution width (RBC) [Ratio] 12.4 % 11.6-14.6 [facility] Immature granulocytes/100 WBC (Bld) 0.600 % 0.0-0.9 [facility] Comment on above: IG% - Immature Granu locytes (promyelocytes, myelocytes and metamyelocytes) > 1% indicates that a LEFT SHIFT is Present. MCH (RBC) [Entitic mass] 28.4 pg 27.0-32.0 [facility] Nucleated RBC/100 WBC (Bld) [Ratio] 0 % 0-5 [facility] MCHC Auto (RBC) [Mass/Vol]Or dered By: Dr. Mcneal on 07-25-2022 MCHC (RBC) [Mass/Vol] 33.5 g/dL 32-36 [facility] No Panel InformationOrdered By: Dr. Mcneal on 07-25-2022 Estimated Creatinine Clearance Calc 81.81 ml/min [facility] Estimated GFR (MDRD) Amer 97 mL/min >60 [facility] [facility] Comment on above: GFR Calc Estimated GFR (MDRD) Non-Af Amer 80 mL/min >60 [facility] Comment on above: Non- GFR Calc Troponin I High Sensitivity 10 pg/mL 3.0-54.0 [facility] Comment on above: Please Note: New Junie t Units and Gender Specific Reference Ranges. For more information see Policy Stat Procedure [place] High Sensitivity Troponin (TNIH) and attachments. 80 mL/min >60 [facility] 97 mL/min >60 [facility] 81.81 ml/min [facility] 14.9 RATIO 10-20 [facility] 4.0 g/dL 2.2-4.2 [facility] 104 U/L 73-393 [facility] 10 pg/mL 3.0-54.0 [facility] 113 U/L 45-117 [facility] 15 U/L 13-56 [facility] 27.0 mmol/L 21.0-32.0 [facility] 28.4 pg 27.0-32.0 [facility] 12.4 % 11.6-14.6 [facility] 38.3 fl 35.1-43.9 [facility] 0.600 % 0.0-0.9 [facility] 0 % 0-5 [facility] Platelets bldOrdered By: Dr. Mcneal on 07-25-2022 Platelets (Bld) [#/Vol] 163 10*3/uL 150-450 [facility] Serum or plasma albumin xiomara urement (mass/volume)Ordered By: Dr. Mcneal on 07-25-2022 Albumin [Mass/Vol] 2.6 g/dL 3.2-5.0 [facility] Serum or plasma albumin/glob ulin mass ratioOrdered By: Dr. Mcneal on 07-25-2022 Albumin/Globulin [Mass ratio] 0.6 {ratio} 0.9-2.4 [facility] Serum or plasma calcium xiomara urement (mass/volume)Ordered By: Dr. Mcneal on 07-25-2022 Calcium [Mass/Vol] 8.6 mg/dL 8.5-10.1 [facility] Serum or plasma creatinine m easurement (mass/volume)Ordered By: Dr. Mcneal on 07-25-2022 Creatinine [Mass/Vol] 0.80 mg/dL 0.55-1.02 [facility] Comment on above: The validity of the calculated GFR & GFRAA in patients over 70 years has not been determined. Clinical correlation is essential. Serum or plasma urea nitroge n measurement (mass/volume)Ordered By: Dr. Mcneal on 07-25-2022 Urea nitrogen [Mass/Vol] 12 mg/dL 7-18 [facility] Thin prep Papanicolaou smear with manual screeningOrdered By: Dr. Mcneal on 07-25-2022 Thin prep Papanicolaou smear with manual screening 17 U/L 15-37 [facility] Comment on above: Slight Hemolysis, Re sult may be falsely increased. Thin prep Papanicolaou smear with manual screening 7 5-15 [facility] Absolute lymphocyte countOrd ered By: ED PROVIDER on 05-19-2022 Lymphocytes Auto (Unsp spec) [#/Vol] 1.58 10*3/uL 0.83-4.51 [facility] Basophil percentageOrdered B y: ED PROVIDER on 05-19-2022 Basophil percentage 402 mg/dL 74-106 [facility] Basophil percentage 131 mmol/L 136-145 [facility] Basophil percentage 4.5 mmol/L 3.5-5.1 [facility] Basophil percentage 97 mmol/L 98-107 [facility] Basophils (Bld) [#/Vol] 11.3 10*3/uL 4.4-11.0 [facility] Basophils (Bld) [#/Vol] 9.1 10*3/uL 2.0-7.7 [facility] Basophils/100 WBC (Bld) 0.7 % 0-1 [facility] Basophils/100 WBC (Bld) 79.9 % 47-70 [facility] Basophils/100 WBC (Bld) 1.0 % 0-5 [facility] Chloride [Moles/Vol] 97 mmol/L 98-107 [facility] Eosinophils/100 WBC (Bld) 1.0 % 0-5 [facility] Glucose [Mass/Vol] 402 mg/dL 74-106 [facility] Comment on above: Glucose result great er than or equal to 200 mg/dLsuggests DIABETES MELLITUS per A.D.A. criteria. Neutrophils (Bld) [#/Vol] 9.1 10*3/uL 2.0-7.7 [facility] Neutrophils/100 WBC (Bld) 79.9 % 47-70 [facility] Potassium [Moles/Vol] 4.5 mmol/L 3.5-5.1 [facility] Comment on above: Moderate Hemolysis, Result may be falsely increased. Sodium [Moles/Vol] 131 mmol/L 136-145 [facility] WBC (Bld) [#/Vol] 11.3 10*3/uL 4.4-11.0 [facility] Beta hCG serum qualOrdered B y: ED PROVIDER on 05-19-2022 Beta HCG ( test) Ql Negative [facility] Blood erythrocytes count (nu mber/volume)Ordered By: ED PROVIDER on 05-19-2022 RBC (Bld) [#/Vol] 5.80 10*6/uL 4.2-5.4 [facility] Blood hemoglobin measurement (mass/volume)Ordered By: ED PROVIDER on 05-19-2022 Hemoglobin (Bld) [Mass/Vol] 16.2 g/dL 12.0-15.0 [facility] Blood lymphocytes/100 leukoc ytesOrdered By: ED PROVIDER on 05-19-2022 Lymphocytes/100 WBC (Bld) 13.9 % 19-41 [facility] Blood monocytes/100 leukocyt esOrdered By: ED PROVIDER on 05-19-2022 Monocytes/100 WBC (Bld) 4.0 % 0-10 [facility] Blood platelet mean volumeOr dered By: ED PROVIDER on 05-19-2022 Platelet mean volume (Bld) [Entitic vol] 9.7 fL 6.2-12.0 [facility] Determination of erythrocyte mean corpuscular volume (MCV)Ordered By: ED PROVIDER on 05-19-2022 MCV (RBC) [Entitic vol] 84.3 fL 81-99 [facility] Hematocrit Auto (Bld) [Volum e fraction]Ordered By: ED PROVIDER on 05-19-2022 Hematocrit (Bld) [Volume fraction] 48.9 % 37-47 [facility] Laboratory - Chemistry and C hemistry - challengeOrdered By: ED PROVIDER on 05-19-2022 CO2 [Moles/Vol] 28.0 mmol/L 21.0-32.0 [facility] Urea nitrogen/Creatinine [Mass ratio] 10.2 mg/mg 10- [facility] Laboratory - Hematology and Cell countsOrdered By: ED PROVIDER on 05-19-2022 Erythrocyte distribution width (RBC) [Entitic vol] 41.3 fL 35.1-43.9 [facility] Erythrocyte distribution width (RBC) [Ratio] 13.5 % 11.6-14.6 [facility] Immature granulocytes/100 WBC (Bld) 0.500 % 0.0-0.9 [facility] Comment on above: IG% - Immature Granu locytes (promyelocytes, myelocytes and metamyelocytes) > 1% indicates that a LEFT SHIFT is Present. MCH (RBC) [Entitic mass] 27.9 pg 27.0-32.0 [facility] Nucleated RBC/100 WBC (Bld) [Ratio] 0 % 0-5 [facility] MCHC Auto (RBC) [Mass/Vol]Or dered By: ED PROVIDER on 05-19-2022 MCHC (RBC) [Mass/Vol] 33.1 g/dL 32-36 [facility] No Panel InformationOrdered By: ED PROVIDER on 05-19-2022 Estimated Creatinine Clearance Calc 83.91 ml/min [facility] Estimated GFR (MDRD) Amer 100 mL/min >60 [facility] Comment on above: GFR Calc Estimated GFR (MDRD) Non-Af Amer 82 mL/min >60 [facility] Comment on above: Non- GFR Calc 27.9 pg 27.0-32.0 [facility] 13.5 % 11.6-14.6 [facility] 41.3 fl 35.1-43.9 [facility] 0.500 % 0.0-0.9 [facility] 0 % 0-5 [facility] 82 mL/min >60 [facility] 100 mL/min >60 [facility] 83.91 ml/min [facility] 10.2 RATIO 10- [facility] 28.0 mmol/L 21.0-32.0 [facility] Platelets bldOrdered By: ED PROVIDER on 05-19-2022 Platelets (Bld) [#/Vol] 260 10*3/uL 150-450 [facility] Serum or plasma calcium xiomara urement (mass/volume)Ordered By: ED PROVIDER on 05-19-2022 Calcium [Mass/Vol] 9.2 mg/dL 8.5-10.1 [facility] Serum or plasma creatinine m easurement (mass/volume)Ordered By: ED PROVIDER on 05-19-2022 Creatinine [Mass/Vol] 0.78 mg/dL 0.55-1.02 [facility] Comment on above: The validity of the calculated GFR & GFRAA in patients over 70 years has not been determined. Clinical correlation is essential. Serum or plasma urea nitroge n measurement (mass/volume)Ordered By: ED PROVIDER on 05-19-2022 Urea nitrogen [Mass/Vol] 8 mg/dL 7-18 [facility] Thin prep Papanicolaou smear with manual screeningOrdered By: ED PROVIDER on 05-19-2022 Thin prep Papanicolaou smear with manual screening 6 5-15 [facility] Absolute lymphocyte countOrd ered By: Conor Martin on 05-09-2022 Lymphocytes Auto (Unsp spec) [#/Vol] 0.43 10*3/uL 0.83-4.51 [facility] Basophil percentageOrdered B y: Conor Martin on 05-09-2022 Basophils/100 WBC (Bld) 0.4 % 0-1 [facility] Bilirubin [Mass/Vol] 1.40 mg/dL 0.20-1.00 [facility] Comment on above: For patients on eltr ombopag therapy, use of Dimension [place] TBIL is not recommended. Chloride [Moles/Vol] 100 mmol/L 98-107 [facility] Eosinophils/100 WBC (Bld) 0.8 % 0-5 [facility] Glucose [Mass/Vol] 364 mg/dL 74-106 [facility] Comment on above: Glucose result great er than or equal to 200 mg/dLsuggests DIABETES MELLITUS per A.D.A. criteria. Neutrophils (Bld) [#/Vol] 9.6 10*3/uL 2.0-7.7 [facility] Neutrophils/100 WBC (Bld) 89.6 % 47-70 [facility] Potassium [Moles/Vol] 4.6 mmol/L 3.5-5.1 [facility] Comment on above: Moderate Hemolysis, Result may be falsely increased. Protein [Mass/Vol] 7.7 g/dL 6.4-8.2 [facility] Sodium [Moles/Vol] 133 mmol/L 136-145 [facility] WBC (Bld) [#/Vol] 10.7 10*3/uL 4.4-11.0 [facility] Blood erythrocytes count (nu mber/volume)Ordered By: Conor Martin on 05-09-2022 RBC (Bld) [#/Vol] 5.49 10*6/uL 4.2-5.4 [facility] Blood hemoglobin measurement (mass/volume)Ordered By: Conor Martin on 05-09-2022 Hemoglobin (Bld) [Mass/Vol] 15.5 g/dL 12.0-15.0 [facility] Blood lymphocytes/100 leukoc ytesOrdered By: Conor Martin on 05-09-2022 Lymphocytes/100 WBC (Bld) 4.0 % 19-41 [facility] Blood manual differential co mment interpretation (narrative result)Ordered By: Conor Martin on 05-09-2022 Manual differential comment Main (Bld) [Interp] SCANNED [facility] Comment on above: LYMPHOPENIA NOTED Blood monocytes/100 leukocyt esOrdered By: Conor Martin on 05-09-2022 Monocytes/100 WBC (Bld) 4.8 % 0-10 [facility] Blood platelet mean volumeOr dered By: Conor Martin on 05-09-2022 Platelet mean volume (Bld) [Entitic vol] 9.6 fL 6.2-12.0 [facility] Determination of erythrocyte mean corpuscular volume (MCV)Ordered By: Conor Martin on 05-09-2022 MCV (RBC) [Entitic vol] 84.9 fL 81-99 [facility] Direct bilirubinOrdered By: Conor Martin on 05-09-2022 Bilirubin.direct [Mass/Vol] 0.18 mg/dL 0.00-0.30 [facility] Hematocrit Auto (Bld) [Volum e fraction]Ordered By: Conor Martin on 05-09-2022 Hematocrit (Bld) [Volume fraction] 46.6 % 37-47 [facility] Influenza virus A and B and SARS-CoV-2 (COVID-19) Ag panel - Upper respiratory specimOrdered By: Conor Martin on 05-09-2022 SARS-CoV-2 & FLU Antigen (Rapid) Influenzae A [facility] Laboratory - Chemistry and C hemistry - challengeOrdered By: Conor Martin on 05-09-2022 ALP [Catalytic activity/Vol] 142 U/L 45-117 [facility] ALT [Catalytic activity/Vol] 17 U/L 13-56 [facility] CO2 [Moles/Vol] 29.0 mmol/L 21.0-32.0 [facility] Globulin (S) [Mass/Vol] 4.5 g/dL 2.2-4.2 [facility] Lipase [Catalytic activity/Vol] 89 U/L 73-393 [facility] Urea nitrogen/Creatinine [Mass ratio] 15.2 mg/mg 10-20 [facility] Laboratory - Hematology and Cell countsOrdered By: Conor Martin on 05-09-2022 Erythrocyte distribution width (RBC) [Entitic vol] 41.5 fL 35.1-43.9 [facility] Erythrocyte distribution width (RBC) [Ratio] 13.5 % 11.6-14.6 [facility] Immature granulocytes/100 WBC (Bld) 0.400 % 0.0-0.9 [facility] Comment on above: IG% - Immature Granu locytes (promyelocytes, myelocytes and metamyelocytes) > 1% indicates that a LEFT SHIFT is Present. MCH (RBC) [Entitic mass] 28.2 pg 27.0-32.0 [facility] Nucleated RBC/100 WBC (Bld) [Ratio] 0 % 0-5 [facility] MCHC Auto (RBC) [Mass/Vol]Or dered By: Conor Martin on 05-09-2022 MCHC (RBC) [Mass/Vol] 33.3 g/dL 32-36 [facility] No Panel InformationOrdered By: Conor Martin on 05-09-2022 Estimated Creatinine Clearance Calc 90.90 ml/min [facility] Estimated GFR (MDRD) Amer 110 mL/min >60 [facility] Comment on above: GFR Calc Estimated GFR (MDRD) Non-Af Amer 91 mL/min >60 [facility] Comment on above: Non- GFR Calc Platelets bldOrdered By: Jose Martin on 05-09-2022 Platelets (Bld) [#/Vol] 289 10*3/uL 150-450 [facility] Serum or plasma acetone xiomara urement (mass/volume)Ordered By: Conor Martin on 05-09-2022 Acetone [Mass/Vol] Negative NEG [facility] Serum or plasma albumin xiomara urement (mass/volume)Ordered By: Conor Martin on 05-09-2022 Albumin [Mass/Vol] 3.2 g/dL 3.2-5.0 [facility] Serum or plasma calcium xiomara urement (mass/volume)Ordered By: Conor Martin on 05-09-2022 Calcium [Mass/Vol] 9.4 mg/dL 8.5-10.1 [facility] Serum or plasma creatinine m easurement (mass/volume)Ordered By: Conor Martin on 05-09-2022 Creatinine [Mass/Vol] 0.72 mg/dL 0.55-1.02 [facility] Comment on above: The validity of the calculated GFR & GFRAA in patients over 70 years has not been determined. Clinical correlation is essential. Serum or plasma urea nitroge n measurement (mass/volume)Ordered By: Conor Martin on 05-09-2022 Urea nitrogen [Mass/Vol] 11 mg/dL 7-18 [facility] Thin prep Papanicolaou smear with manual screeningOrdered By: Conor Martin on 05-09-2022 Thin prep Papanicolaou smear with manual screening 21 U/L 15-37 [facility] Comment on above: Moderate Hemolysis, Result may be falsely increased. Thin prep Papanicolaou smear with manual screening 4 5-15 [facility] Progress Noteon 05-02-2022 Progress Note CD UPLOADED. IMAGES IN AGFA. Normal [facility] Absolute lymphocyte countOrd ered By: Dr. Mcneal on 04-17-2022 Lymphocytes Auto (Unsp spec) [#/Vol] 1.46 10*3/uL 0.83-4.51 [facility] Basophil percentageOrdered B y: Dr. Mcneal on 04-17-2022 Basophils/100 WBC (Bld) 0.7 % 0-1 [facility] Bilirubin [Mass/Vol] 1.00 mg/dL 0.20-1.00 [facility] Comment on above: For patients on eltr ombopag therapy, use of Dimension [place] TBIL is not recommended. Chloride [Moles/Vol] 100 mmol/L 98-107 [facility] Eosinophils/100 WBC (Bld) 1.2 % 0-5 [facility] Glucose [Mass/Vol] 368 mg/dL 74-106 [facility] Comment on above: Glucose result great er than or equal to 200 mg/dLsuggests DIABETES MELLITUS per A.D.A. criteria. Neutrophils (Bld) [#/Vol] 9.0 10*3/uL 2.0-7.7 [facility] Neutrophils/100 WBC (Bld) 79.1 % 47-70 [facility] Potassium [Moles/Vol] 3.5 mmol/L 3.5-5.1 [facility] Protein [Mass/Vol] 6.6 g/dL 6.4-8.2 [facility] Sodium [Moles/Vol] 136 mmol/L 136-145 [facility] WBC (Bld) [#/Vol] 11.4 10*3/uL 4.4-11.0 [facility] Blood erythrocytes count (nu mber/volume)Ordered By: Dr. Mcneal on 04-17-2022 RBC (Bld) [#/Vol] 5.50 10*6/uL 4.2-5.4 [facility] Blood hemoglobin measurement (mass/volume)Ordered By: Dr. Mcneal on 04-17-2022 Hemoglobin (Bld) [Mass/Vol] 15.9 g/dL 12.0-15.0 [facility] Blood lymphocytes/100 leukoc ytesOrdered By: Dr. Mcneal on 04-17-2022 Lymphocytes/100 WBC (Bld) 12.8 % 19-41 [facility] Blood monocytes/100 leukocyt esOrdered By: Dr. Mcneal on 04-17-2022 Monocytes/100 WBC (Bld) 5.9 % 0-10 [facility] Blood platelet mean volumeOr dered By: Dr. Mcneal on 04-17-2022 Platelet mean volume (Bld) [Entitic vol] 9.4 fL 6.2-12.0 [facility] Determination of erythrocyte mean corpuscular volume (MCV)Ordered By: Dr. Mcneal on 04-17-2022 MCV (RBC) [Entitic vol] 83.3 fL 81-99 [facility] Hematocrit Auto (Bld) [Volum e fraction]Ordered By: Dr. Mcneal on 04-17-2022 Hematocrit (Bld) [Volume fraction] 45.8 % 37-47 [facility] Laboratory - Chemistry and C hemistry - challengeOrdered By: Dr. Mcneal on 04-17-2022 ALP [Catalytic activity/Vol] 132 U/L 45-117 [facility] ALT [Catalytic activity/Vol] 31 U/L 13-56 [facility] CO2 [Moles/Vol] 28.0 mmol/L 21.0-32.0 [facility] Globulin (S) [Mass/Vol] 3.6 g/dL 2.2-4.2 [facility] Urea nitrogen/Creatinine [Mass ratio] 7.8 mg/mg 10-20 [facility] Laboratory - Hematology and Cell countsOrdered By: Dr. Mcneal on 04-17-2022 Erythrocyte distribution width (RBC) [Entitic vol] 38.7 fL 35.1-43.9 [facility] Erythrocyte distribution width (RBC) [Ratio] 12.8 % 11.6-14.6 [facility] Immature granulocytes/100 WBC (Bld) 0.300 % 0.0-0.9 [facility] Comment on above: IG% - Immature Granu locytes (promyelocytes, myelocytes and metamyelocytes) > 1% indicates that a LEFT SHIFT is Present. MCH (RBC) [Entitic mass] 28.9 pg 27.0-32.0 [facility] Nucleated RBC/100 WBC (Bld) [Ratio] 0 % 0-5 [facility] MCHC Auto (RBC) [Mass/Vol]Or dered By: Dr. Mcneal on 04-17-2022 MCHC (RBC) [Mass/Vol] 34.7 g/dL 32-36 [facility] No Panel InformationOrdered By: Dr. Mcneal on 04-17-2022 Estimated Creatinine Clearance Calc 85.00 ml/min [facility] Estimated GFR (MDRD) Amer 102 mL/min >60 [facility] Comment on above: GFR Calc Estimated GFR (MDRD) Non-Af Amer 84 mL/min >60 [facility] Comment on above: Non- GFR Calc Platelets bldOrdered By: Dr. Mcneal on 04-17-2022 Platelets (Bld) [#/Vol] 234 10*3/uL 150-450 [facility] Serum or plasma albumin xiomara urement (mass/volume)Ordered By: Dr. Mcneal on 04-17-2022 Albumin [Mass/Vol] 3.0 g/dL 3.2-5.0 [facility] Serum or plasma albumin/glob ulin mass ratioOrdered By: Dr. Mcneal on 04-17-2022 Albumin/Globulin [Mass ratio] 0.8 {ratio} 0.9-2.4 [facility] Serum or plasma calcium xiomara urement (mass/volume)Ordered By: Dr. Mcneal on 04-17-2022 Calcium [Mass/Vol] 9.0 mg/dL 8.5-10.1 [facility] Serum or plasma creatinine m easurement (mass/volume)Ordered By: Dr. Mcneal on 04-17-2022 Creatinine [Mass/Vol] 0.77 mg/dL 0.55-1.02 [facility] Comment on above: The validity of the calculated GFR & GFRAA in patients over 70 years has not been determined. Clinical correlation is essential. Serum or plasma urea nitroge n measurement (mass/volume)Ordered By: Dr. Mcneal on 04-17-2022 Urea nitrogen [Mass/Vol] 6 mg/dL 7-18 [facility] Thin prep Papanicolaou smear with manual screeningOrdered By: Dr. Mcneal on 04-17-2022 Thin prep Papanicolaou smear with manual screening 25 U/L 15-37 [facility] Thin prep Papanicolaou smear with manual screening 8 5-15 [facility] Absolute lymphocyte countOrd ered By: Dr. Abrams on 03-27-2022 Lymphocytes Auto (Unsp spec) [#/Vol] 1.61 10*3/uL 0.83-4.51 [facility] Basophil percentageOrdered B y: Dr. Abrams on 03-27-2022 Basophils/100 WBC (Bld) 0.7 % 0-1 [facility] Bilirubin [Mass/Vol] 1.20 mg/dL 0.20-1.00 [facility] Comment on above: For patients on eltr ombopag therapy, use of Dimension [place] TBIL is not recommended. Chloride [Moles/Vol] 94 mmol/L 98-107 [facility] Eosinophils/100 WBC (Bld) 1.0 % 0-5 [facility] Glucose [Mass/Vol] 477 mg/dL 74-106 [facility] Comment on above: Critical Result(s) C alled at: 11:26:10 03/27/2022 by: Tc Montana RN (ER). Results read back by same.Glucose result greater than or equal to 200 mg/dLsuggests DIABETES MELLITUS per A.D.A. criteria. Neutrophils (Bld) [#/Vol] 8.9 10*3/uL 2.0-7.7 [facility] Neutrophils/100 WBC (Bld) 80.1 % 47-70 [facility] Potassium [Moles/Vol] 4.5 mmol/L 3.5-5.1 [facility] Protein [Mass/Vol] 7.3 g/dL 6.4-8.2 [facility] Sodium [Moles/Vol] 131 mmol/L 136-145 [facility] WBC (Bld) [#/Vol] 11.2 10*3/uL 4.4-11.0 [facility] Blood erythrocytes count (nu mber/volume)Ordered By: Dr. Abrams on 03-27-2022 RBC (Bld) [#/Vol] 5.95 10*6/uL 4.2-5.4 [facility] Blood hemoglobin measurement (mass/volume)Ordered By: Dr. Abrams on 03-27-2022 Hemoglobin (Bld) [Mass/Vol] 16.6 g/dL 12.0-15.0 [facility] Blood lymphocytes/100 leukoc ytesOrdered By: Dr. Abrams on 03-27-2022 Lymphocytes/100 WBC (Bld) 14.4 % 19-41 [facility] Blood monocytes/100 leukocyt esOrdered By: Dr. Abrams on 03-27-2022 Monocytes/100 WBC (Bld) 3.4 % 0-10 [facility] Blood platelet mean volumeOr dered By: Dr. Abrams on 03-27-2022 Platelet mean volume (Bld) [Entitic vol] 9.6 fL 6.2-12.0 [facility] Determination of erythrocyte mean corpuscular volume (MCV)Ordered By: Dr. Abrams on 03-27-2022 MCV (RBC) [Entitic vol] 82.9 fL 81-99 [facility] Hematocrit Auto (Bld) [Volum e fraction]Ordered By: Dr. Abrams on 03-27-2022 Hematocrit (Bld) [Volume fraction] 49.3 % 37-47 [facility] Laboratory - Chemistry and C hemistry - challengeOrdered By: Dr. Abrams on 03-27-2022 ALP [Catalytic activity/Vol] 152 U/L 45-117 [facility] ALT [Catalytic activity/Vol] 22 U/L 13-56 [facility] CO2 [Moles/Vol] 31.0 mmol/L 21.0-32.0 [facility] Globulin (S) [Mass/Vol] 4.2 g/dL 2.2-4.2 [facility] Lipase [Catalytic activity/Vol] 113 U/L 73-393 [facility] Urea nitrogen/Creatinine [Mass ratio] 14.1 mg/mg 10-20 [facility] Laboratory - Hematology and Cell countsOrdered By: Dr. Abrams on 03-27-2022 Erythrocyte distribution width (RBC) [Entitic vol] 38.0 fL 35.1-43.9 [facility] Erythrocyte distribution width (RBC) [Ratio] 12.7 % 11.6-14.6 [facility] Immature granulocytes/100 WBC (Bld) 0.400 % 0.0-0.9 [facility] Comment on above: IG% - Immature Granu locytes (promyelocytes, myelocytes and metamyelocytes) > 1% indicates that a LEFT SHIFT is Present. MCH (RBC) [Entitic mass] 27.9 pg 27.0-32.0 [facility] Nucleated RBC/100 WBC (Bld) [Ratio] 0 % 0-5 [facility] MCHC Auto (RBC) [Mass/Vol]Or dered By: Dr. Abrams on 03-27-2022 MCHC (RBC) [Mass/Vol] 33.7 g/dL 32-36 [facility] No Panel InformationOrdered By: Dr. Abrams on 03-27-2022 Estimated Creatinine Clearance Calc 77.00 ml/min [facility] Estimated GFR (MDRD) Amer 91 mL/min >60 [facility] Comment on above: GFR Calc Estimated GFR (MDRD) Non-Af Amer 75 mL/min >60 [facility] Comment on above: Non- GFR Calc Platelets bldOrdered By: Dr. Abrams on 03-27-2022 Platelets (Bld) [#/Vol] 251 10*3/uL 150-450 [facility] Serum or plasma albumin xiomara urement (mass/volume)Ordered By: Dr. Abrams on 03-27-2022 Albumin [Mass/Vol] 3.1 g/dL 3.2-5.0 [facility] Serum or plasma albumin/glob ulin mass ratioOrdered By: Dr. Abrams on 03-27-2022 Albumin/Globulin [Mass ratio] 0.7 {ratio} 0.9-2.4 [facility] Serum or plasma calcium xiomara urement (mass/volume)Ordered By: Dr. Abrams on 03-27-2022 Calcium [Mass/Vol] 9.5 mg/dL 8.5-10.1 [facility] Serum or plasma creatinine m easurement (mass/volume)Ordered By: Dr. Abrams on 03-27-2022 Creatinine [Mass/Vol] 0.85 mg/dL 0.55-1.02 [facility] Comment on above: The validity of the calculated GFR & GFRAA in patients over 70 years has not been determined. Clinical correlation is essential. Serum or plasma urea nitroge n measurement (mass/volume)Ordered By: Dr. Abrams on 03-27-2022 Urea nitrogen [Mass/Vol] 12 mg/dL 7-18 [facility] Thin prep Papanicolaou smear with manual screeningOrdered By: Dr. Abrams on 03-27-2022 Thin prep Papanicolaou smear with manual screening 17 U/L 15-37 [facility] Thin prep Papanicolaou smear with manual screening 6 5-15 [facility] ABDOMEN AP VIEWon 08-13-2021 ABDOMEN AP VIEW Patient Name: TRENTON JACKSON STUDY: ABDOMEN AP VIEW INDICATION: constipation . COMPARISON: Abdomen radiograph dated 09/22/2019. ACCESSION NUMBER(S): [id number] ORDERING CLINICIAN: ALEX TAPIA FINDINGS: Single AP [...] above. Electronically signed by: STEW CUENCA MD [facility] ANKLE, COMPLETE, MIN 3 VIEWS on 08-13-2021 ANKLE, COMPLETE, MIN 3 VIEWS Patient Name: TRENTON JACKSON STUDY: Left ankle, 3 views. INDICATION: sudden onset pain . COMPARISON: None ACCESSION NUMBER(S): [id number] ORDERING CLINICIAN: ALEX TAPIA FINDINGS: Bones demonstrate [...] Electronically signed by: STEW CUENCA MD Normal [facility] BASIC METABOLIC PANELon - Anion gap [Moles/Vol] 10 mmol/L Normal 10 - 20 [facility] Comment on above: Performed By: #### B MP #### [address] [address] Calcium [Mass/Vol] 8.9 mg/dL Normal 8.6 - 10.3 [facility] Comment on above: Performed By: #### B MP #### [address] [address] Chloride [Moles/Vol] 97 mmol/L Low 98 - 107 [facility] Comment on above: Performed By: #### B MP #### [address] [address] Creatinine [Mass/Vol] 0.61 mg/dL Normal 0.50 - 1.05 [facility] Comment on above: Performed By: #### B MP #### [address] [address] eGFR FEMALE >90 Normal >90 [facility] Comment on above: Result Comment: CALC ULATIONS OF ESTIMATED GFR ARE PERFORMED USING THE 2020 CKD-EPI STUDY REFIT EQUATION WITHOUT THE RACE VARIABLE FOR THE IDMS-TRACEABLE CREATININE METHODS. https://jasn.asnjournals.org/content/early//ASN.2020 277053 Performed By: #### B MP #### [address] [address] Glucose [Mass/Vol] 395 mg/dL High 74 - 99 [facility] Comment on above: Performed By: #### B MP #### [address] [address] HCO3 (Bld) [Moles/Vol] 28 mmol/L Normal 21 - 32 [facility] Comment on above: Performed By: #### B MP #### [address] [address] Potassium [Moles/Vol] 4.0 mmol/L Normal 3.5 - 5.3 [facility] Comment on above: Performed By: #### B MP #### [address] [address] Sodium [Moles/Vol] 131 mmol/L Low 136 - 145 [facility] Comment on above: Performed By: #### B MP #### [address] [address] Urea nitrogen [Mass/Vol] 10 mg/dL Normal 6 - 23 [facility] Comment on above: Performed By: #### B MP #### [address] [address] BETA-HYDROXYBUTYRATEon 08-13 BETA-HYDROXYBUTYRATE 0.20 mmol/L Normal 0.02 - 0.27 [facility] Comment on above: Result Comment: The beta-hydroxybutyrate test performance characteristics have been validated by [facility] laboratory. This test has not been approved by the FDA; however, such approval is not necessary. Performed By: #### B HB2 #### [address] [address] CBC AND DIFFERENTIALon 08-13 Basophils (Bld) [#/Vol] 0.10 10*3/uL Normal 0.00 - 0.10 [facility] Comment on above: Performed By: #### C BCDF #### [address] [address] Basophils/100 WBC (Bld) 0.8 % Normal 0.0 - 2.0 [facility] Comment on above: Performed By: #### C BCDF #### [address] [address] Eosinophils (Bld) [#/Vol] 0.20 10*3/uL Normal 0.00 - 0.70 [facility] Comment on above: Performed By: #### C BCDF #### [address] [address] Eosinophils/100 WBC (Bld) 2.1 % Normal 0.0 - 6.0 [facility] Comment on above: Performed By: #### C BCDF #### [address] [address] Erythrocyte distribution width (RBC) [Ratio] 13.0 % Normal 11.5 - 14.5 [facility] Comment on above: Performed By: #### C BCDF #### [address] [address] Hematocrit (Bld) [Volume fraction] 43.3 % Normal 36.0 - 46.0 [facility] Comment on above: Performed By: #### C BCDF #### [address] [address] Hemoglobin (Bld) [Mass/Vol] 14.3 g/dL Normal 12.0 - 16.0 [facility] Comment on above: Performed By: #### C BCDF #### [place] [id number] Lymphocytes (Bld) [#/Vol] 1.30 10*3/uL Normal 1.20 - 4.80 [facility] Comment on above: Performed By: #### C BCDF #### [address] [address] Lymphocytes/100 WBC (Bld) 12.0 % Normal 13.0 - 44.0 [facility] Comment on above: Performed By: #### C BCDF #### [address] [address] MCHC (RBC) [Mass/Vol] 33.1 g/dL Normal 32.0 - 36.0 [facility] Comment on above: Performed By: #### C BCDF #### [address] [address] MCV (RBC) [Entitic vol] 83 fL Normal 80 - 100 [facility] Comment on above: Performed By: #### C BCDF #### [address] [address] Monocytes (Bld) [#/Vol] 0.60 10*3/uL Normal 0.10 - 1.00 [facility] Comment on above: Performed By: #### C BCDF #### [address] [address] Monocytes/100 WBC (Bld) 5.6 % Normal 2.0 - 10.0 [facility] Comment on above: Performed By: #### C BCDF #### [address] [address] Neutrophils (Bld) [#/Vol] 8.70 10*3/uL High 1.20 - 7.70 [facility] Comment on above: Result Comment: Perc ent differential counts (%) should be interpreted in the context of the absolute cell counts (cells/L). Performed By: #### C BCDF #### [address] [address] Neutrophils/100 WBC (Bld) 79.5 % Normal 40.0 - 80.0 [facility] Comment on above: Performed By: #### C BCDF #### [address] [address] NUCLEATED RBC 0.1 /100 WBC Normal [facility] Comment on above: Performed By: #### C BCDF #### [address] [address] Platelets (Bld) [#/Vol] 276 10*3/uL Normal 150 - 450 [facility] Comment on above: Performed By: #### C BCDF #### [address] [address] RBC 5.22 x10E12/L High 4.00 - 5.20 [facility] Comment on above: Performed By: #### C BCDF #### [address] [address] WBC (Bld) [#/Vol] 10.9 10*3/uL Normal 4.4 - 11.3 [facility] Comment on above: Performed By: #### C BCDF #### [address] [address] LACTATEon 08-13-2021 Lactate [Moles/Vol] 1.2 mmol/L Normal 0.4 - 2.0 [facility] Comment on above: Result Comment: Marisol puncture immediately after or during the administration of Metamizole may lead to falsely low results. Testing should be performed immediately prior to Metamizole dosing. Performed By: #### L ACT #### [id number] [place] [address] Provider Note - ED v3on 08-02 Provider Note - ED v3 Provider Note: Chart Review: ED NOTES ED NOTES: HPI: Patient presents ER today complaining of nausea constipation and left ankle and leg pain. She states that the pain has been going on for several weeks. Denies any strain or trauma. In review of previous notes patient was seen most recently at [place] emergency department on August 09 and at [...] Alert and oriented x4, GCS 15 , manager farm II-XII grossly intact. Sensation and motor function of extremities grossly intact. Psych: Appropriate mood and affect. I have reviewed and confirmed nurses/medics notes for patient past, social and family history. Portions of this note were dictated by speech recognition. An attempt at proof reading was made to minimize errors. Minor errors in mailmaster may be present. HISTORY OF PRESENTING ILLNESS [...] Drug Name: (more content not included)... Normal [facility] Triage - EDon 08-13-2021 Triage - ED [...] 13-Aug-2021 10:49 by Dayanara Hoyos (RN) Normal [facility] VENOUS BLOOD GASon 2 BASE EXCESS-BLOOD 7.5 mmol/L High -2.0 - 3.0 [facility] Comment on above: Performed By: #### B LGV1 #### [place] [address] BICARB, CALCULATED 32.7 mmol/L High 22.0 - 26.0 [facility] Comment on above: Performed By: #### B LGV1 #### [place] [address] FIO2 21 % Normal [facility] Comment on above: Performed By: #### B LGV1 #### [address] [address] Oxygen (Bld) [Partial pressure] 20 mm[Hg] Low 35 - 45 [facility] Comment on above: Performed By: #### B LGV1 #### [address] [address] PCO2 47 mmHg Normal 41 - 51 [facility] Comment on above: Performed By: #### B LGV1 #### [address] [address] pH (Bld) 7.45 [pH] High 7.33 - 7.43 [facility] Comment on above: Performed By: #### B LGV1 #### [place] [id number] SO2 42 % Low 45 - 75 [facility] Comment on above: Performed By: #### B LGV1 #### [place] [id number] CBCon 10-01-2019 Erythrocyte distribution width (RBC) [Ratio] Canceled Normal [facility] Comment on above: Order Comment: TEST CBC WAS CANCELLED, 10/01/2019 02:09 ?Cancel Reason: Patient Discharged. Performed By: #### C OAGS #### [facility] [address] [place] [address] Hematocrit (Bld) [Volume fraction] Canceled Normal [facility] Comment on above: Order Comment: TEST CBC WAS CANCELLED, 10/01/2019 02:09 ?Cancel Reason: Patient Discharged. Performed By: #### C OAGS #### [facility] [address] [place] [address] Hemoglobin (Bld) [Mass/Vol] Canceled Normal [facility] Comment on above: Order Comment: TEST CBC WAS CANCELLED, 10/01/2019 02:09 ?Cancel Reason: Patient Discharged. Performed By: #### C OAGS #### [facility] [address] [place] [address] MCHC (RBC) [Mass/Vol] Canceled Normal [facility] Comment on above: Order Comment: TEST CBC WAS CANCELLED, 10/01/2019 02:09 ?Cancel Reason: Patient Discharged. Performed By: #### C OAGS #### [facility] [address] [place] [address] MCV (RBC) [Entitic vol] Canceled Normal [facility] Comment on above: Order Comment: TEST CBC WAS CANCELLED, 10/01/2019 02:09 ?Cancel Reason: Patient Discharged. Performed By: #### C OAGS #### [facility] [address] [place] [address] Nucleated RBC/100 WBC (Bld) [Ratio] Canceled Normal [facility] Comment on above: Order Comment: TEST CBC WAS CANCELLED, 10/01/2019 02:09 ?Cancel Reason: Patient Discharged. Performed By: #### C OAGS #### [facility] [address] [place] [address] Platelets (Bld) [#/Vol] Canceled Normal [facility] Comment on above: Order Comment: TEST CBC WAS CANCELLED, 10/01/2019 02:09 ?Cancel Reason: Patient Discharged. Performed By: #### C OAGS #### [facility] [address] [place] [address] RBC (Bld) [#/Vol] Canceled Normal [facility] Comment on above: Order Comment: TEST CBC WAS CANCELLED, 10/01/2019 02:09 ?Cancel Reason: Patient Discharged. Performed By: #### C OAGS #### [facility] [address] [place] [address] WBC (Bld) [#/Vol] Canceled Normal [facility] Comment on above: Order Comment: TEST CBC WAS CANCELLED, 10/01/2019 02:09 ?Cancel Reason: Patient Discharged. Performed By: #### C OAGS #### [facility] [address] [place] [address] RENAL FUNCTION PANELon 09-30 Albumin [Mass/Vol] Canceled Normal [facility] Comment on above: Order Comment: TEST RENAL FUNCTION PANEL WAS CANCELLED, 10/01/2019 02:09 ?Cancel Reason:Patient Discharged. Performed By: #### C OAGS #### [facility] [address] [place] [address] Anion gap [Moles/Vol] Canceled Normal [facility] Comment on above: Order Comment: TEST RENAL FUNCTION PANEL WAS CANCELLED, 10/01/2019 02:09 ?Cancel Reason:Patient Discharged. Performed By: #### C OAGS #### [facility] [address] [place] [address] Calcium [Mass/Vol] Canceled Normal [facility] Comment on above: Order Comment: TEST RENAL FUNCTION PANEL WAS CANCELLED, 10/01/2019 02:09 ?Cancel Reason:Patient Discharged. Performed By: #### C OAGS #### [facility] [address] [place] [address] Chloride [Moles/Vol] Canceled Normal [facility] Comment on above: Order Comment: TEST RENAL FUNCTION PANEL WAS CANCELLED, 10/01/2019 02:09 ?Cancel Reason:Patient Discharged. Performed By: #### C OAGS #### [facility] [address] [place] [address] Creatinine [Mass/Vol] Canceled Normal [facility] Comment on above: Order Comment: TEST RENAL FUNCTION PANEL WAS CANCELLED, 10/01/2019 02:09 ?Cancel Reason:Patient Discharged. Performed By: #### C OAGS #### [facility] [address] [place] [address] GFR- AM. Canceled Normal [facility] Comment on above: Order Comment: TEST RENAL FUNCTION PANEL WAS CANCELLED, 10/01/2019 02:09 ?Cancel Reason:Patient Discharged. Result Comment: CALC ULATIONS OF ESTIMATED GFR ARE PERFORMED USING THE MDRD STUDY EQUATION FOR THE IDMS-TRACEABLE CREATININE METHODS. CLIN CHEM 2007;53:766-72 Performed By: #### C OAGS #### [facility] [address] [place] [address] GFR-NON AM. Canceled Normal [facility] Comment on above: Order Comment: TEST RENAL FUNCTION PANEL WAS CANCELLED, 10/01/2019 02:09 ?Cancel Reason:Patient Discharged. Performed By: #### C OAGS #### [facility] [address] [place] [address] Glucose [Mass/Vol] Canceled Normal [facility] Comment on above: Order Comment: TEST RENAL FUNCTION PANEL WAS CANCELLED, 10/01/2019 02:09 ?Cancel Reason:Patient Discharged. Performed By: #### C OAGS #### [facility] [address] [place] [address] HCO3 (Bld) [Moles/Vol] Canceled Normal [facility] Comment on above: Order Comment: TEST RENAL FUNCTION PANEL WAS CANCELLED, 10/01/2019 02:09 ?Cancel Reason:Patient Discharged. Performed By: #### C OAGS #### [facility] [address] [place] [address] Phosphate [Mass/Vol] Canceled Normal [facility] Comment on above: Order Comment: TEST RENAL FUNCTION PANEL WAS CANCELLED, 10/01/2019 02:09 ?Cancel Reason:Patient Discharged. Result Comment: The performance characteristics of phosphorus testing in heparinized plasma have been validated by the individual laboratory site where testing is performed. Testing on heparinized plasma is not approved by the FDA; however, such approval is not necessary. Performed By: #### C OAGS #### [facility] [address] [place] [address] Potassium [Moles/Vol] Canceled Normal [facility] Comment on above: Order Comment: TEST RENAL FUNCTION PANEL WAS CANCELLED, 10/01/2019 02:09 ?Cancel Reason:Patient Discharged. Performed By: #### C OAGS #### [facility] [address] [place] [address] Sodium [Moles/Vol] Canceled Normal [facility] Comment on above: Order Comment: TEST RENAL FUNCTION PANEL WAS CANCELLED, 10/01/2019 02:09 ?Cancel Reason:Patient Discharged. Performed By: #### C OAGS #### [facility] [address] [place] [address] Urea nitrogen [Mass/Vol] Canceled Normal [facility] Comment on above: Order Comment: TEST RENAL FUNCTION PANEL WAS CANCELLED, 10/01/2019 02:09 ?Cancel Reason:Patient Discharged. Performed By: #### C OAGS #### [facility] [address] [place] [address] C-REACTIVE PROTEINon 020 CRP [Mass/Vol] 0.99 mg/dL Normal [facility] Comment on above: Result Comment: REF VALUE < 1.00 Performed By: #### C OAGS #### [facility] [address] [place] [address] CRP [Mass/Vol] 1.13 mg/dL Abnormal [facility] Comment on above: Result Comment: REF VALUE < 1.00 Performed By: #### C RP #### [facility] [address] [place] [address] CBC AND DIFFERENTIALon 09-29 % AUTOMATED IMMATURE GRAN 0.6 % Normal 0.0 - 0.9 [facility] Comment on above: Result Comment: Vaishali ture Granulocyte Count (IG) includes promyelocytes, myelocytes and metamyelocytes but does not include bands. Percent differential counts (%) should be interpreted in the context of the absolute cell counts (cells/L). Performed By: #### C BCDF #### [facility] [address] [place] [address] Basophils (Bld) [#/Vol] 0.06 10*3/uL Normal 0.00 - 0.10 [facility] Comment on above: Performed By: #### C BCDF #### [facility] [address] [place] [address] Basophils/100 WBC (Bld) 0.8 % Normal 0.0 - 2.0 [facility] Comment on above: Performed By: #### C BCDF #### [facility] [address] [place] [address] Eosinophils (Bld) [#/Vol] 0.15 10*3/uL Normal 0.00 - 0.70 [facility] Comment on above: Performed By: #### C BCDF #### [facility] [address] [place] [address] Eosinophils/100 WBC (Bld) 1.9 % Normal 0.0 - 6.0 [facility] Comment on above: Performed By: #### C BCDF #### [facility] [address] [place] [address] Erythrocyte distribution width (RBC) [Ratio] 14.3 % Normal 11.5 - 14.5 [facility] Comment on above: Performed By: #### C BCDF #### [facility] [address] [place] [address] Hematocrit (Bld) [Volume fraction] 39.8 % Normal 36.0 - 46.0 [facility] Comment on above: Performed By: #### C BCDF #### [facility] [address] [place] [address] Hemoglobin (Bld) [Mass/Vol] 12.9 g/dL Normal 12.0 - 16.0 [facility] Comment on above: Performed By: #### C BCDF #### [facility] [address] [place] [address] Lymphocytes (Bld) [#/Vol] 2.21 10*3/uL Normal 1.20 - 4.80 [facility] Comment on above: Performed By: #### C BCDF #### [facility] [address] [place] [address] Lymphocytes/100 WBC (Bld) 28.1 % Normal 13.0 - 44.0 [facility] Comment on above: Performed By: #### C BCDF #### [facility] [address] [place] [address] MCHC (RBC) [Mass/Vol] 32.4 g/dL Normal 32.0 - 36.0 [facility] Comment on above: Performed By: #### C BCDF #### [facility] [address] [place] [address] MCV (RBC) [Entitic vol] 85 fL Normal 80 - 100 [facility] Comment on above: Performed By: #### C BCDF #### [facility] [address] [place] [address] Monocytes (Bld) [#/Vol] 0.79 10*3/uL Normal 0.10 - 1.00 [facility] Comment on above: Performed By: #### C BCDF #### [facility] [address] [place] [address] Monocytes/100 WBC (Bld) 10.0 % Normal 2.0 - 10.0 [facility] Comment on above: Performed By: #### C BCDF #### [facility] [address] [place] [address] Neutrophils (Bld) [#/Vol] 4.61 10*3/uL Normal 1.20 - 7.70 [facility] Comment on above: Performed By: #### C BCDF #### [facility] [address] [place] [address] Neutrophils/100 WBC (Bld) 58.6 % Normal 40.0 - 80.0 [facility] Comment on above: Performed By: #### C BCDF #### [facility] [address] [place] [address] Nucleated RBC/100 WBC (Bld) [Ratio] 0.0 /100 WBC Normal 0.0-0.0 [facility] Comment on above: Performed By: #### C BCDF #### [facility] [address] [place] [address] Platelets (Bld) [#/Vol] 239 10*3/uL Normal 150 - 450 [facility] Comment on above: Performed By: #### C BCDF #### [facility] [address] [place] [address] RBC (Bld) [#/Vol] 4.70 x10E12/L Normal 4.00 - 5.20 [facility] Comment on above: Performed By: #### C BCDF #### [facility] [address] [place] [address] WBC (Bld) [#/Vol] 7.9 10*3/uL Normal 4.4 - 11.3 [facility] Comment on above: Performed By: #### C BCDF #### [facility] [address] [place] [address] % AUTOMATED IMMATURE GRAN 0.5 % Normal 0.0 - 0.9 [facility] Comment on above: Result Comment: Vaishali ture Granulocyte Count (IG) includes promyelocytes, myelocytes and metamyelocytes but does not include bands. Percent differential counts (%) should be interpreted in the context of the absolute cell counts (cells/L). Performed By: #### C BCDF #### [facility] [address] [place] [address] Basophils (Bld) [#/Vol] 0.06 10*3/uL Normal 0.00 - 0.10 [facility] Comment on above: Performed By: #### C BCDF #### [facility] [address] [place] [address] Basophils/100 WBC (Bld) 0.6 % Normal 0.0 - 2.0 [facility] Comment on above: Performed By: #### C BCDF #### [facility] [address] [place] [address] Eosinophils (Bld) [#/Vol] 0.11 10*3/uL Normal 0.00 - 0.70 [facility] Comment on above: Performed By: #### C BCDF #### [facility] [address] [place] [address] Eosinophils/100 WBC (Bld) 1.1 % Normal 0.0 - 6.0 [facility] Comment on above: Performed By: #### C BCDF #### [facility] [address] [place] [address] Erythrocyte distribution width (RBC) [Ratio] 14.3 % Normal 11.5 - 14.5 [facility] Comment on above: Performed By: #### C BCDF #### [facility] [address] [place] [address] Hematocrit (Bld) [Volume fraction] 39.7 % Normal 36.0 - 46.0 [facility] Comment on above: Performed By: #### C BCDF #### [facility] [address] [place] [address] Hemoglobin (Bld) [Mass/Vol] 12.9 g/dL Normal 12.0 - 16.0 [facility] Comment on above: Performed By: #### C BCDF #### [facility] [address] [place] [address] Lymphocytes (Bld) [#/Vol] 3.06 10*3/uL Normal 1.20 - 4.80 [facility] Comment on above: Performed By: #### C BCDF #### [facility] [address] [place] [address] Lymphocytes/100 WBC (Bld) 30.5 % Normal 13.0 - 44.0 [facility] Comment on above: Performed By: #### C BCDF #### [facility] [address] [place] [address] MCHC (RBC) [Mass/Vol] 32.5 g/dL Normal 32.0 - 36.0 [facility] Comment on above: Performed By: #### C BCDF #### [facility] [address] [place] [address] MCV (RBC) [Entitic vol] 84 fL Normal 80 - 100 [facility] Comment on above: Performed By: #### C BCDF #### [facility] [address] [place] [address] Monocytes (Bld) [#/Vol] 0.96 10*3/uL Normal 0.10 - 1.00 [facility] Comment on above: Performed By: #### C BCDF #### [facility] [address] [place] [address] Monocytes/100 WBC (Bld) 9.6 % Normal 2.0 - 10.0 [facility] Comment on above: Performed By: #### C BCDF #### [facility] [address] [place] [address] Neutrophils (Bld) [#/Vol] 5.78 10*3/uL Normal 1.20 - 7.70 [facility] Comment on above: Performed By: #### C BCDF #### [facility] [address] [place] [address] Neutrophils/100 WBC (Bld) 57.7 % Normal 40.0 - 80.0 [facility] Comment on above: Performed By: #### C BCDF #### [facility] [address] [place] [address] Nucleated RBC/100 WBC (Bld) [Ratio] 0.0 /100 WBC Normal 0.0-0.0 [facility] Comment on above: Performed By: #### C BCDF #### [facility] [address] [place] [address] Platelets (Bld) [#/Vol] 250 10*3/uL Normal 150 - 450 [facility] Comment on above: Performed By: #### C BCDF #### [facility] [address] [place] [address] RBC (Bld) [#/Vol] 4.71 x10E12/L Normal 4.00 - 5.20 [facility] Comment on above: Performed By: #### C BCDF #### [facility] [address] [place] [address] WBC (Bld) [#/Vol] 10.0 10*3/uL Normal 4.4 - 11.3 [facility] Comment on above: Performed By: #### C BCDF #### [facility] [address] [place] [address] COAGULATION SCREENon 020 aPTT Coag (Bld) [Time] 33 s Normal 28 - 38 [facility] Comment on above: Result Comment: THE APTT IS NO LONGER USED FOR MONITORING UNFRACTIONATED HEPARIN THERAPY. FOR MONITORING HEPARIN THERAPY, USE THE HEPARIN ASSAY. Performed By: #### C OAGS #### [facility] [address] [place] [address] INR Coag (PPP) [Relative time] 1.2 {INR} High 0.9 - 1.1 [facility] Comment on above: Performed By: #### C OAGS #### [facility] [address] [place] [address] PT Coag (PPP) [Time] 13.5 s High 9.7 - 12.7 [facility] Comment on above: Performed By: #### C OAGS #### [facility] [address] [place] [address] aPTT Coag (Bld) [Time] 41 s High 28 - 38 [facility] Comment on above: Result Comment: THE APTT IS NO LONGER USED FOR MONITORING UNFRACTIONATED HEPARIN THERAPY. FOR MONITORING HEPARIN THERAPY, USE THE HEPARIN ASSAY. Performed By: #### C OAGS #### [facility] [address] [place] [address] INR Coag (PPP) [Relative time] 2.0 {INR} High 0.9 - 1.1 [facility] Comment on above: Performed By: #### C OAGS #### [facility] [address] [place] [address] PT Coag (PPP) [Time] 22.4 s High 9.7 - 12.7 [facility] Comment on above: Performed By: #### C OAGS #### [facility] [address] [place] [address] COMPREHENSIVE PANELon 2019 Albumin [Mass/Vol] 3.6 g/dL Normal 3.4 - 5.0 [facility] Comment on above: Performed By: #### C MP #### [facility] [address] [place] [address] ALP [Catalytic activity/Vol] 82 U/L Normal 33 - 110 [facility] Comment on above: Performed By: #### C MP #### [facility] [address] [place] [address] ALT [Catalytic activity/Vol] 15 U/L Normal 7 - 45 [facility] Comment on above: Result Comment: Cecily ents treated with Sulfasalazine may generate falsely decreased results for ALT. Performed By: #### C MP #### [facility] [address] [place] [address] Anion gap [Moles/Vol] 16 mmol/L Normal 10 - 20 [facility] Comment on above: Performed By: #### C MP #### [facility] [address] [place] [address] AST [Catalytic activity/Vol] 13 U/L Normal 9 - 39 [facility] Comment on above: Performed By: #### C MP #### [facility] [address] [place] [address] Bilirubin [Mass/Vol] 0.7 mg/dL Normal 0.0 - 1.2 [facility] Comment on above: Performed By: #### C MP #### [facility] [address] [place] [address] Calcium [Mass/Vol] 9.2 mg/dL Normal 8.6 - 10.6 [facility] Comment on above: Performed By: #### C MP #### [facility] [address] [place] [address] Chloride [Moles/Vol] 94 mmol/L Low 98 - 107 [facility] Comment on above: Performed By: #### C MP #### [facility] [address] [place] [address] Creatinine [Mass/Vol] 1.52 mg/dL High 0.50 - 1.05 [facility] Comment on above: Performed By: #### C MP #### [facility] [address] [place] [address] GFR- AM. 44 mL/min/1.73m2 Abnormal >60 [facility] Comment on above: Result Comment: CALC ULATIONS OF ESTIMATED GFR ARE PERFORMED USING THE MDRD STUDY EQUATION FOR THE IDMS-TRACEABLE CREATININE METHODS. CLIN CHEM 2007;53:766-72 Performed By: #### C MP #### [facility] [address] [place] [address] GFR-NON AM. 36 mL/min/1.73m2 Abnormal >60 [facility] Comment on above: Performed By: #### C MP #### [facility] [address] [place] [address] Glucose [Mass/Vol] 161 mg/dL High 74 - 99 [facility] Comment on above: Performed By: #### C MP #### [facility] [address] [place] [address] HCO3 (Bld) [Moles/Vol] 30 mmol/L Normal 21 - 32 [facility] Comment on above: Performed By: #### C MP #### [facility] [address] [place] [address] Potassium [Moles/Vol] 3.7 mmol/L Normal 3.5 - 5.3 [facility] Comment on above: Performed By: #### C MP #### [facility] [address] [place] [address] Protein [Mass/Vol] 6.3 g/dL Low 6.4 - 8.2 [facility] Comment on above: Performed By: #### C MP #### [facility] [address] [place] [address] Sodium [Moles/Vol] 136 mmol/L Normal 136 - 145 [facility] Comment on above: Performed By: #### C MP #### [facility] [address] [place] [address] Urea nitrogen [Mass/Vol] 25 mg/dL High 6 - 23 [facility] Comment on above: Performed By: #### C MP #### [facility] [address] [place] [address] Daily Progress Note-Cardiolo flaco 09-30-2019 Daily Progress [...] above. Objective Data: Objective Information: T PRBPSpO2 [id number]/7995% Date/Time09/29 7: 7: 7: 7: 7:46 Range(35.7C [...] Reference Range: STRAW,YELLOW Appearance, Urine CLEAR Specific [place], Urine 1.014 pH, Urine 5.0 Protein, Urine [...] seg dep or elevation on EKG, normal CO intervals -Pain control: 975mg q8h as needed, [...] lasix - Hx of heart cath in [facility] - report not available #Provoked PE 07/06 [...] the note. I personally evaluated the patient [id number] Electronic Signatures: Quang Chris) (Signed 02-Oct-2019 14:00) Authored: Signature/Cosignature/Att estation Co-Signer: Service, Subjective Data, Objective Data, Assessment and Plan, Signature/Cosignature/Att estation Lilly Barfield (Resident)) (Signed 30-Sep-2019 10:38) Authored: Service, Subjective Data, Objective Data, Assessment and Plan, Signature/Cosignature/Att estation Last Updated: 02-Oct-2019 14:00 by Quang Chris) Normal [facility] Discharge [id number] Discharge Profile2 Discharge Orders: Anticipated Discharge Date: Anticipated Discharge [id number] Anticipated Discharge Time11:33 Problem List: Additional Dx: CHF (congestive heart failure): Catalog Name: Heart failure, unspecified Diabetes mellitus: Catalog Name: Type 2 diabetes mellitus without complications Chest pain: Onset Date: 29-Sep-2019, Catalog Name: Chest pain, unspecified Coronary artery disease: Catalog Name: Atherosclerotic heart disease of [place] coronary artery without angina pectoris Ischemic dilated [...] pounds. Diet: Dietlow sodium, diabetic/carbohydrate counted Diabetic/Carbohydrate Qrcsfej48hqmd/Carb meal, 45gram/Carb snack (1999-2199cals) Fluid RestrictionTry not [...] on anti-viral therapy. -Followup routinely with your press box custodian. You have a weak heart and they [...] Medication Reconciliation and Orders Completedby Physician Reviewing ProvideriLlly Barfield MD (Resident) at 30-Sep-2019 11:54:22 Appointments: Follow-Up Appointment 01: Physician/Dept/ServiceDr. Abigail Mascorro, Cardiology Scheduled Date/[id number] 11:00 [facility] Card[facility] Phone [phone] CommentsPlease do not come into the office. The will contact the patent VIA phone. Follow-Up Appointment 02: Physician/Dept/ServiceDr. Lexis Scanlon - Family Medicine Reason for ReferralEstablish with Primary Care Provider Scheduled Date/[id number] 10:00 LocationPLEASE DO NOT COME INTO THE OFFICE, WILL CONTACT PATIENT VIA PHONE, OFFICE WILL CALL TO CONFIRM APPOINTMENT Phone [phone] CommentsPlease arrive 10-15 minutes early, bring photo [...] 30-Sep-2019 11:25) Authored: Tatiana, Gold Form - Cloth Shrinking Machine Operator Summary Lilly Barfield (Resident)) (Signed 30-Sep-2019 11:54) Authored: Discharge Orders, Hospital Course (Home Care/Gold Form), Provider FINAL REVIEW of Orders, Appointments Last Updated: 30-Sep-2019 12:50 by Kam Hassan (PT ACC REP) Normal [facility] EMR ADDONon 09-30-2019 ADDON CONFIRMATION REQUEST REC'D Normal [facility] Comment on above: Performed By: #### C OAGS #### [facility] [address] [place] [address] GLUCOSE-POCTon 09-30-2019 Glucose [Mass/Vol] 210 mg/dL High 74 - 99 [facility] Comment on above: Performed By: #### C BCDF #### [facility] [address] [place] [address] Glucose [Mass/Vol] 230 mg/dL High 74 - 99 [facility] Comment on above: Performed By: #### G EMILY #### [facility] [address] [place] [address] LACTATEon 09-30-2019 Lactate [Moles/Vol] 2.0 mmol/L Normal 0.4 - 2.0 [facility] Comment on above: Result Comment: Marisol puncture immediately after or during the administration of Metamizole may lead to falsely low results. Testing should be performed immediately prior to Metamizole dosing. Performed By: #### L ACT #### [facility] [address] [place] [address] SEDIMENTATION RATE, ERYTHROC YTEon 09-30-2019 SEDIMENTATION RATE, ERYTHROCYTE 30 mm/h High 0 - 20 [facility] Comment on above: Performed By: #### E SRWS #### [facility] [address] [place] [address] TH ABDOMEN AP VIEWon 020 TH ABDOMEN AP VIEW Patient Name: TRENTON JACKSON STUDY: ABDOMEN AP VIEW; 09/30/2019 12:30 am INDICATION: Constipation. COMPARISON: None. ACCESSION NUMBER(S): [id number] ORDERING CLINICIAN: FRANCISCA FERRER FINDINGS: Surgical clips [...] as stated. This study was interpreted at [place], [place]. Electronically signed by: BEV BUCHANAN MD Normal [facility] TROPONIN Ion 09-30-2019 Troponin I.cardiac [Mass/Vol] Canceled Normal [facility] Comment on above: Order Comment: TEST TROPONIN I WAS CANCELLED, 09/30/2019 14:12 DUPLICATE ORDER, SEE [id number]. Result Comment: LESS THAN 0.04 NG/ML: NEGATIVE [...] is performed using different testing methodology at [facility] than at other [facility]. Direct result comparisons should only be made within the same method. . Biotin interference may cause falsely decreased results. Patients taking a Biotin dose of up to 5 mg/day should refrain from taking Biotin for 24 hours before sample collection. Providers may contact their laboratory for further information. Performed By: #### T ROP2 #### [facility] [address] [place] [address] Troponin I.cardiac [Mass/Vol] 0.02 ng/mL Normal 0.00 - 0.03 [facility] Comment on above: Result Comment: LESS THAN [...] is performed using different testing methodology at [facility] than at other [facility]. Direct result comparisons should only be made within the same method. . Biotin interference may cause falsely decreased results. Patients taking a Biotin dose of up to 5 mg/day should refrain from taking Biotin for 24 hours before sample collection. Providers may contact their laboratory for further information. Performed By: #### C OAGS #### [facility] [address] [place] [address] URINALYSISon 09-30-2019 Appearance (U) CLEAR Normal CLEAR [facility] Comment on above: Performed By: #### U A #### [facility] [address] [place] [address] Bilirubin (U) [Mass/Vol] Negative Normal NEGATIVE [facility] Comment on above: Performed By: #### U A #### [facility] [address] [place] [address] BLOOD Negative Normal NEGATIVE [facility] Comment on above: Performed By: #### U A #### [facility] [address] [place] [address] Color (U) YELLOW Normal STRAW,YELL OW [facility] Comment on above: Performed By: #### U A #### [facility] [address] [place] [address] Glucose [Mass/Vol] Negative Normal NEGATIVE [facility] Comment on above: Performed By: #### U A #### [facility] [address] [place] [address] Ketones Ql (U) Negative Normal NEGATIVE [facility] Comment on above: Performed By: #### U A #### [facility] [address] [place] [address] Leukocyte esterase Test strip Ql (U) Negative Normal NEGATIVE [facility] Comment on above: Performed By: #### U A #### [facility] [address] [place] [address] Nitrite Ql (U) Negative Normal NEGATIVE [facility] Comment on above: Performed By: #### U A #### [facility] [address] [place] [address] pH (Bld) 5.0 Normal 5.0 - 8.0 [facility] Comment on above: Performed By: #### U A #### [facility] [address] [place] [address] Protein (U) [Mass/Vol] Negative Normal NEGATIVE [facility] Comment on above: Performed By: #### U A #### [facility] [address] [place] [address] Specific gravity (U) [Rel density] 1.014 Normal 1.005 - 1.035 [facility] Comment on above: Performed By: #### U A #### [facility] [address] [place] [address] Urobilinogen Qn (U) <2.0 Normal 0.0 - 1.9 [facility] Comment on above: Performed By: #### U A #### [facility] [address] [place] [address] Admission Risk Screen - Adul ton 09-29-2019 [...] falls risk with risk for associated injury [place] Safety InterventionsWDL *orient to call system *instruct [...] instruction; skill demonstration Cultural Considerationsnone Developmental Considerationsnone Episcopal Considerationsnone Learning Assessment (Other Learner): Other learner [...] Spiritual Screen: Are there any cultural, spiritual, taoism practices/values/needs that are important for us to knowno CAGE: Is this an injured patient at a Trauma Center ([facility]/[place]/ [place]): no Vaccinations: Vaccination - Influenza Vaccination Screen: [...] 29-Sep-2019 20:36 by Bina Saunders (RN) Normal [facility] Discharge Planning [id number] 0 09-29-2019 Discharge Planning Note2 Discharge Planning: Anticipated Discharge [id number] Discharge Planning 09/29/19 2139 Discharge Planning Note: Patient admitted from [facility] with complaints of chest pain. Patient lives at home with - Curry [facility]- [phone]. Patient is independent of ADLS and uses a walker and cane at home. Will reassess patient's home going needs prior to discharge. Gian Saunders RN 09/30/2019 @1130 Patient Airport Screener Note PCN informed per [facility] that pt. would need ride home at discharge. Per medical team pt. can discharge after 12pm. PCN called and spoke with pt. to verify demos. Demos verified. The pt. stated that she is going to call her aunt to see if she can come and pick the pt. up at [facility]. PCN awaiting call back. [facility] aware. UPDATE @1300: PCN called and spoke with the pt. and at this time she was unable to secure a ride home from her aunt. PCN informed her that PCN would contact [facility] and get pt. a ride to her residence. UPDATE @1315: PCN able to secure a ride for pt per Ezbxcwa-T-Egvf for right now to 1415. PCN called [...] be discharged. [facility] aware. Ada Jasmine, Patient Airport Screener [phone] 09/30/2019 1400 Patient discharged home with no home care needs, IV removed, acknowledged discharge instructions. Patient left via transport to provide a ride. Vivien Ramesh RN Assessment: Discharge Planning Assessment [id number] Discharge Planning Assessment Completed byJazzmine Villanueva RNcitrus fruit packer Coordinator [phone] Primary Contact Name and NumberDarcy Jackson- [phone](1) Stated Reason for Admissionchest pain(1) Arrived Fromhospital [...] Discharge Planning CommentsDenies need to speak to aids social worker. This information was obtained via telephonic communication to maintain safe distancing for COVID-19 precautionary measures Electronic Signatures: Bina Saunders (RN) (Signed 29-Sep-2019 21:44) Authored: Discharge Planning Note2 Jazzimne Villanueva (RN) (Signed 30-Sep-2019 10:34) Authored: Discharge Planning Note2 Vivien Ramesh (RN) (Signed 30-Sep-2019 14:52) Authored: Discharge Planning Note2 Ada Jasmine (PCN) (Signed 30-Sep-2019 13:48) Authored: Discharge Planning Note2 Last Updated: 30-Sep-2019 14:52 by Vivien Ramesh (RN) References: 1. Data Referenced From Patient Profile - Adult v2 29-Sep-2019 20:36 Normal [facility] GLUCOSE-POCTon 09-29-2019 Glucose [Mass/Vol] 189 mg/dL High 74 - 99 [facility] Comment on above: Performed By: #### G EMILY #### [facility] [address] [place] [address] Patient Profile - Adult v2on 09-29-2019 Patient Profile - Adult v2 Profile: Initial Info: How to be AddressedShelley(1) Spoken Language PreferredEnglish (1) Are you currently using the Personal Electronic Health Record or TheCommentorno (1) Stated Reason for Admissionchest pain Primary Contact Name and All Jackson- [phone] Wants Family/Rep Notified of Admissionno Notify PCPdeferred, unable to answer Informed of Patient Visiting Rightsyes Arrived Fromspital Patient Belongingsremains with patient Medications Brought to Hospitalyes General Health: Weight in kg89.2 kilogram(s) Weight in fbw180.6 pound(s) Height in feet5 feet Height in [...] Significant Exposuresecondhand smoke(1) Resource/Environmental Concernsnone [facility] Anticipated at Transitionnone Significant IndicatorsComplete Information [...] Profile - Adult v2 28-Sep-2019 10:57 Normal [facility] Surgical Pathology Depar tmenton 08-15-2019 [facility] Surgical Pathology Department Name TRENTON JACKSON. [...] bone underlying the necrotic area appears unremarkable. Customer Acquisition Manager sections are submitted in 5 cassettes following decalcification. MY Summary of Cassettes: Specimen Label Site A 1 section of the necrotic area 2 bone margin of great toe 3 bone margin of second toe 4 bone margin of third toe 5 section of necrotic area with adjacent bone my/08/20/2019 Normal [facility] Comment on above: Performed By: #### C BCDF #### [facility] [address] [place] [address] [facility] Surgical Pathology Depar tmenton 06-23-2019 [facility] Surgical Pathology Department Name TRENTON JACKSON Pathologist: ZOHREH COSTA MD Date of Procedure: 06/23/2019 Date Received: 06/23/2019 Date Reported 06/27/2019 Submitting Physician: QUOC VIRK DPM Location: [facility] Surgical Copy To/Referring/Attending: HALIE RIVERA MD Other [...] prior to presentation. She decided to use iefk-pyb-jjcldod aspirin and routine foot care to attend [...] measuring 4 x 3 x 2 cm. Customer Acquisition Manager sections are submitted in 4 cassettes. SPS Summary of Cassettes: Specimen Label Site A 1 5th toe bone 2 4th toe bone 3-4 soft tissue Normal [facility] Comment on above: Performed By: #### C BCDF #### [facility] [address] [place] [address] CT ABD/PEL W IVCONon 11-05-[address] ABD/PEL W IVCON * * *Final Report* * * DATE OF EXAM: Apr 08 2019 3:29PM [facility] 0530 - CT ABD/PEL W IVCON [...] of diverticulitis. Chronic findings as detailed above. Police Captain: PSCB Transcribe Date/Time: Apr 08 2019 3:35P Dictated by : SABINA ODOM MD This examination was interpreted and the report reviewed and electronically signed by: SABINA ODOM MD on Apr 08 2019 3:51PM EST Normal [facility] Comprehensive Panelon 2018 Albumin [Mass/Vol] 3.7 g/dL Normal 3.4-5.0 [facility] Comment on above: Performed By: #### L MACU #### [facility] [address] [place] [address] ALP [Catalytic activity/Vol] 131 U/L High 46-116 [facility] Comment on above: Performed By: #### L MACU #### [facility] [address] [place] [address] ALT-SGPT Blood 21 U/L Normal 14-63 [facility] Comment on above: Performed By: #### L MACU #### [facility] [address] [place] [address] Anion gap [Moles/Vol] 15 mmol/L Normal 8-20 [facility] Comment on above: Performed By: #### L MACU #### [facility] [address] [place] [address] AST-SGOT Blood 16 U/L Normal 15-37 [facility] Comment on above: Performed By: #### L MACU #### [facility] [address] [place] [address] Bilirubin Ql (U) 0.6 mg/dL Normal 0.2-1.0 [facility] Comment on above: Performed By: #### L MACU #### [facility] [address] [place] [address] Calcium [Mass/Vol] 9.4 mg/dL Normal 8.5-10.1 [facility] Comment on above: Performed By: #### L MACU #### [facility] [address] [place] [address] CO2 Blood 29 mEq/L Normal 21-32 [facility] Comment on above: Performed By: #### L MACU #### [facility] [address] [place] [address] Creatinine [Mass/Vol] 0.65 mg/dL Normal 0.51-0.95 [facility] Comment on above: Performed By: #### L MACU #### [place] [address] Glucose [Mass/Vol] 370 mg/dL High 70-99 [facility] Comment on above: Performed By: #### L MACU #### [facility] [address] [place], [place] [address] Protein [Mass/Vol] 8.1 g/dL Normal 6.4-8.2 [facility] Comment on above: Performed By: #### L MACU #### [facility] [address] [place] [address] Urea nitrogen [Mass/Vol] 5 mg/dL Low 7-18 [facility] Comment on above: Performed By: #### L MACU #### [facility] [address] [place] [address] Urea nitrogen/Creatinine [Mass ratio] 8 mg/mg Low 10-20 [facility] Comment on above: Performed By: #### L MACU #### [facility] [address] [place] [address] Chloride [Moles/Vol] 98 mmol/L Normal 98-[address] [facility] Comment on above: Result Comment: Test ing performed on an [place] i-STAT. Performed By: #### L MACU #### [facility] [address] [place] [address] Potassium [Moles/Vol] 4.1 mmol/L Normal 3.5-4.9 [facility] Comment on above: Result Comment: Test ing performed on an [place] i-STAT. Performed By: #### L MACU #### [place] [address] Sodium [Moles/Vol] 138 mmol/L Normal 138-146 [facility] Comment on above: Result Comment: Test ing performed on an [place] i-STAT. Performed By: #### L MACU #### [facility] [address] [place] [address] Hemogram/Manual Diffon 04-08 Abs. Baso 0.00 thou/cmm Normal 0.00-0.08 [facility] Comment on above: Performed By: #### L MACU #### [facility] [address] [place] [address] Abs. Eosin 0.39 thou/cmm Normal 0.00-0.41 [facility] Comment on above: Performed By: #### L MACU #### [facility] [address] [place] [address] Abs. Lymph 1.82 thou/cmm Normal 1.50-3.65 [facility] Comment on above: Performed By: #### L MACU #### [facility] [address] [place] [address] Abs. Brule 0.65 thou/cmm Normal 0.20-1.00 [facility] Comment on above: Performed By: #### L MACU #### [place] [address] Abs. Neut (ANC) 10.14 thou/cmm High 3.00-5.67 [facility] Comment on above: Performed By: #### L MACU #### [place] [address] Anisocytosis Ql (Bld) Few Normal [facility] Comment on above: Performed By: #### L MACU #### [place] [address] Basophil 0.0 % Normal [facility] Comment on above: Performed By: #### L MACU #### [place] [address] Eosinophil 3.0 % Normal [facility] Comment on above: Performed By: #### L MACU #### [place] [address] Lymphocyte 14.0 % Normal [facility] Comment on above: Performed By: #### L MACU #### [place] [address] Monocyte 5.0 % Normal [facility] Comment on above: Performed By: #### L MACU #### [place] [address] Platelets (Bld) [#/Vol] Normal Normal [facility] Comment on above: Performed By: #### L MACU #### [place] [address] Seg Neutrophil 78.0 % Normal [facility] Comment on above: Performed By: #### L MACU #### [facility] [address] [place] [address] Toxic Granulation Few Normal [facility] Comment on above: Performed By: #### L MACU #### [facility] [address] [place] [address] Diff Type Manual Diff Normal [facility] Comment on above: Performed By: #### L MACU #### [facility] [address] [place] [address] Erythrocyte distribution width (RBC) [Ratio] 12.8 % Normal 11.5-15.9 [facility] Comment on above: Performed By: #### L MACU #### [place] [address] Hematocrit (Bld) [Volume fraction] 46.9 % Normal 37.0-47.0 [facility] Comment on above: Performed By: #### L MACU #### [place] [address] Hemoglobin (Bld) [Mass/Vol] 15.9 g/dL Normal 12.0-16.0 [facility] Comment on above: Performed By: #### L MACU #### [place] [address] MCH (RBC) [Entitic mass] 27.8 pg Normal 27.0-31.0 [facility] Comment on above: Performed By: #### L MACU #### [place] [address] MCHC (RBC) [Mass/Vol] 33.9 % Normal 32.0-36.0 [facility] Comment on above: Performed By: #### L MACU #### [place] [address] MCV (RBC) [Entitic vol] 82.0 fl Normal 81.0-99.0 [facility] Comment on above: Performed By: #### L MACU #### [place] [address] Platelet mean volume (Bld) [Entitic vol] 9.8 fl Normal 7.1-10.5 [facility] Comment on above: Performed By: #### L MACU #### [facility] [address] [place], [place] [address] Platelets (Bld) [#/Vol] 233 thou/cmm Normal 150-400 [facility] Comment on above: Performed By: #### L MACU #### [place] [address] RBC (Bld) [#/Vol] 5.72 mil/cmm High 4.20-5.40 [facility] Comment on above: Performed By: #### L MACU #### [place] [address] WBC (Bld) [#/Vol] 13.0 thou/cmm High 4.8-10.[address] [facility] Comment on above: Performed By: #### L MACU #### [place] [address] Lactic acidon 04-08-2019 Lactate [Moles/Vol] 1.8 mmol/L Normal 0.4-2.0 [facility] Comment on above: Performed By: #### L MACU #### [place] [address] Lipase Bloodon 04-08-2019 Lipase Blood 68 U/L Low 73-393 [facility] Comment on above: Performed By: #### L MACU #### [place] [address] MDRD eGFRon 04-08-2019 GFR/1.73 sq M predicted among non-blacks MDRD (S/P/Bld) [Vol rate/Area] mL/min/{1.73_m2} Normal >60mL/min/ 1.73m2 [facility] Comment on above: Result Comment: If t he patient is , multiply the result by 1.210. Performed By: #### L MACU #### [place] [address] Troponin Ion 04-08-2019 Troponin I.cardiac [Mass/Vol] ng/mL Normal <=0.07 [facility] Comment on above: Performed By: #### L MACU #### [facility] [address] [place] [address] Urinalysis Routineon 019 Appearance (U) CLEAR Normal [facility] Comment on above: Performed By: #### L MACU #### [facility] [address] [place] [address] Bilirubin Urine Negative Normal Negative [facility] Comment on above: Performed By: #### L MACU #### [place] [address] Color (U) YELLOW Normal [facility] Comment on above: Performed By: #### L MACU #### [place] [address] Ep Cells Urine 0-2 Normal 0-5 [facility] Comment on above: Performed By: #### L MACU #### [facility] [address] [place] [address] Glucose Ql (U) 2+ Abnormal Negative [facility] Comment on above: Performed By: #### L MACU #### [place] [address] Hemoglobin,Urine TRACE-INTACT Abnormal Negative [facility] Comment on above: Performed By: #### L MACU #### [place] [address] Ketone Urine Negative Normal Negative [facility] Comment on above: Performed By: #### L MACU #### [place] [address] Leukocytes Esterase Negative Normal Negative [facility] Comment on above: Performed By: #### L MACU #### [place] [address] Nitrites Urine Negative Normal Negative [facility] Comment on above: Performed By: #### L MACU #### [place] [address] pH (U) 5.5 [pH] Normal 5.0-8.0 [facility] Comment on above: Performed By: #### L MACU #### [facility] [address] [place] [address] Protein (U) [Mass/Vol] Negative Normal Negative [facility] Comment on above: Performed By: #### L MACU #### [facility] [address] [place], [place] [address] RBC LM.HPF (Urine sed) [#/Area] 0-3 Normal 0-3 [facility] Comment on above: Performed By: #### L MACU #### [place] [address] Specific [place], Ur 1.010 Normal 1.005-1 .03 0 [facility] Comment on above: Performed By: #### L MACU #### [facility] [address] [place] [address] Urobilinogen,Ur 0.2 EU/dL Normal 0.2-1.0 [facility] Comment on above: Performed By: #### L MACU #### [facility] [address] [place] [address] WBC LM.HPF (Urine sed) [#/Area] 0-2 Normal 0-5 [facility] Comment on above: Performed By: #### L MACU #### [facility] [address] [place] [address] Urine HCG, Qual.on 9 Beta HCG ( test) Ql (U) Negative Normal Negative [facility] Comment on above: Performed By: #### L MACU #### [place] [address] CT ABD/PEL W IVCONon 10-14-[address] ABD/PEL W IVCON * * *Final Report* * * DATE OF EXAM: Mar 17 2019 12:16PM [facility] 0530 - CT ABD/PEL W IVCON [...] acute inflammation. Other chronic findings, as above. Police Captain: [email or web address] Transcribe Date/Time: Mar 17 2019 12:22P Dictated by : EDEN CALHOUN MD This examination was interpreted and the report reviewed and electronically signed by: EDEN CALHOUN MD on Mar 17 2019 12:41PM EST Normal [facility] Comprehensive Panelon 2018 Anion gap [Moles/Vol] 13 mmol/L Normal 8-20 [facility] Comment on above: Performed By: #### L MACU #### [place] [address] Chloride [Moles/Vol] 99 mmol/L Normal 98-[address] [facility] Comment on above: Result Comment: Test ing performed on an Palacio i-STAT. Performed By: #### L MACU #### [address] [address] Potassium [Moles/Vol] 4.5 mmol/L Normal 3.5-4.9 [facility] Comment on above: Result Comment: Test ing performed on an Palacio i-STAT. Performed By: #### L MACU #### [place] [address] Sodium [Moles/Vol] 135 mmol/L Low 138-146 [facility] Comment on above: Result Comment: Test ing performed on an Palacio i-STAT. Performed By: #### L MACU #### [address] [address] Albumin [Mass/Vol] 3.5 g/dL Normal 3.4-5.0 [facility] Comment on above: Performed By: #### L MACU #### [address] [address] ALP [Catalytic activity/Vol] 109 U/L Normal 46-116 [facility] Comment on above: Performed By: #### L MACU #### [address] [address] ALT-SGPT Blood 22 U/L Normal 14-63 [facility] Comment on above: Performed By: #### L MACU #### [facility] [address] [place], [place] [address] AST-SGOT Blood 21 U/L Normal 15-37 [facility] Comment on above: Performed By: #### L MACU #### [facility] [address] [place], [place] [address] Bilirubin Ql (U) 0.7 mg/dL Normal 0.2-1.0 [facility] Comment on above: Performed By: #### L MACU #### [facility] [address] [place], [place] [address] Calcium [Mass/Vol] 9.0 mg/dL Normal 8.5-10.1 [facility] Comment on above: Performed By: #### L MACU #### [facility] [address] [place], [place] [address] CO2 Blood 28 mEq/L Normal 21-32 [facility] Comment on above: Performed By: #### L MACU #### [facility] [address] [place], [place] [address] Creatinine [Mass/Vol] 0.63 mg/dL Normal 0.51-0.95 [facility] Comment on above: Performed By: #### L MACU #### [facility] [address] [place], [place] [address] Glucose [Mass/Vol] 312 mg/dL High 70-99 [facility] Comment on above: Performed By: #### L MACU #### [facility] [address] [place], [place] [address] Protein [Mass/Vol] 7.5 g/dL Normal 6.4-8.2 [facility] Comment on above: Performed By: #### L MACU #### [facility] [address] [place], [place] [address] Urea nitrogen [Mass/Vol] 5 mg/dL Low 7-18 [facility] Comment on above: Performed By: #### L MACU #### [facility] [address] [place], [place] [address] Urea nitrogen/Creatinine [Mass ratio] 8 mg/mg Low 10-20 [facility] Comment on above: Performed By: #### L MACU #### [facility] [address] [place] [address] Hemogram/Diffon 03-17-2019 Abs. Baso 0.11 thou/cmm High 0.00-0.08 [facility] Comment on above: Performed By: #### L MACU #### [facility] [address] [place] [address] Abs. Brule 0.49 thou/cmm Normal 0.20-1.00 [facility] Comment on above: Performed By: #### L MACU #### [place] [address] Abs. Neut (ANC) 7.08 thou/cmm High 3.00-5.67 [facility] Comment on above: Performed By: #### L MACU #### [place] [address] Basophils/100 WBC (Bld) 1.1 % Normal [facility] Comment on above: Performed By: #### L MACU #### [place] [address] Eosinophils (Bld) [#/Vol] 0.27 thou/cmm Normal 0.00-0.41 [facility] Comment on above: Performed By: #### L MACU #### [place] [address] Eosinophils/100 WBC (Bld) 2.7 % Normal [facility] Comment on above: Performed By: #### L MACU #### [place] [address] Erythrocyte distribution width (RBC) [Ratio] 12.9 % Normal 11.5-15.9 [facility] Comment on above: Performed By: #### L MACU #### [place] [address] Hematocrit (Bld) [Volume fraction] 47.5 % High 37.0-47.0 [facility] Comment on above: Performed By: #### L MACU #### [address] [place], [place] [address] Hemoglobin (Bld) [Mass/Vol] 15.8 g/dL Normal 12.0-16.0 [facility] Comment on above: Performed By: #### L MACU #### [facility] [address] [place], [place] [address] Lymphocytes (Bld) [#/Vol] 2.05 thou/cmm Normal 1.50-3.65 [facility] Comment on above: Performed By: #### L MACU #### [facility] [address] [place], [place] [address] Lymphocytes/100 WBC (Bld) 20.5 % Normal [facility] Comment on above: Performed By: #### L MACU #### [facility] [address] [place], [place] [address] MCH (RBC) [Entitic mass] 27.7 pg Normal 27.0-31.0 [facility] Comment on above: Performed By: #### L MACU #### [facility] [address] [place] [address] MCHC (RBC) [Mass/Vol] 33.3 % Normal 32.0-36.0 [facility] Comment on above: Performed By: #### L MACU #### [facility] [address] [place] [address] MCV (RBC) [Entitic vol] 83.3 fL Normal 81.0-99.0 [facility] Comment on above: Performed By: #### L MACU #### [facility] [address] [place], [place] [address] Monocytes/100 WBC (Bld) 4.9 % Normal [facility] Comment on above: Performed By: #### L MACU #### [place] [address] Platelet mean volume (Bld) [Entitic vol] 9.9 fL Normal 7.1-10.5 [facility] Comment on above: Performed By: #### L MACU #### [place] [id number] Platelets (Bld) [#/Vol] 240 thou/cmm Normal 150-400 [facility] Comment on above: Performed By: #### L MACU #### [facility] [address] [place] [address] RBC (Bld) [#/Vol] 5.70 mil/cmm High 4.20-5.40 [facility] Comment on above: Performed By: #### L MACU #### [facility] [address] [place] [address] Seg Neutrophil 70.8 % Normal [facility] Comment on above: Performed By: #### L MACU #### [facility] [address] [place] [address] WBC (Bld) [#/Vol] 10.0 thou/cmm Normal 4.8-10.[address] [facility] Comment on above: Performed By: #### L MACU #### [place] [address] Lipase Bloodon 03-17-2019 Lipase Blood 107 U/L Normal 73-393 [facility] Comment on above: Performed By: #### L MACU #### [place] [address] MDRD eGFRon 03-17-2019 GFR/1.73 sq M predicted among non-blacks MDRD (S/P/Bld) [Vol rate/Area] mL/min/{1.73_m2} Normal >60mL/min/ 1.73m2 [facility] Comment on above: Result Comment: If t he patient is , multiply the result by 1.210. Performed By: #### L MACU #### [facility] [address] [place] [address] Macroscopic Urinalysison Appearance (U) CLEAR Normal [facility] Comment on above: Performed By: #### L MACU #### [place] [address] Bilirubin Urine Negative Normal Negative [facility] Comment on above: Performed By: #### L MACU #### [place] [address] Color (U) YELLOW Normal [facility] Comment on above: Performed By: #### L MACU #### [facility] [address] [place] [address] Glucose Ql (U) 2+ Abnormal Negative [facility] Comment on above: Performed By: #### L MACU #### [place] [address] Hemoglobin,Urine Negative Normal Negative [facility] Comment on above: Performed By: #### L MACU #### [place] [address] Ketone Urine Negative Normal Negative [facility] Comment on above: Performed By: #### L MACU #### [place] [address] Leukocytes Esterase Negative Normal Negative [facility] Comment on above: Performed By: #### L MACU #### [place] [address] Nitrites Urine Negative Normal Negative [facility] Comment on above: Performed By: #### L MACU #### [place] [address] pH (U) 6.0 [pH] Normal 5.0-8.0 [facility] Comment on above: Performed By: #### L MACU #### [place] [address] Protein (U) [Mass/Vol] Negative Normal Negative [facility] Comment on above: Performed By: #### L MACU #### [place] [address] Specific [place], Ur 1.020 Normal 1.005-1 .03 0 [facility] Comment on above: Performed By: #### L MACU #### [place] [address] Urobilinogen,Ur 0.2 EU/dL Normal 0.2-1.0 [facility] Comment on above: Performed By: #### L MACU #### [place] [address] Troponin Ion 03-17-2019 Troponin I.cardiac [Mass/Vol] ng/mL Normal <=0.07 [facility] Comment on above: Performed By: #### L MACU #### [facility] [address] [place] [address] Comprehensive Panelon 2018 Creatinine [Mass/Vol] 0.57 mg/dL Normal 0.51-0.95 [facility] Comment on above: Performed By: #### L MACU #### [facility] [address] [place] [address] ALP [Catalytic activity/Vol] 118 U/L High 45-117 [facility] Comment on above: Performed By: #### L MACU #### [place] [address] Bilirubin [Mass/Vol] 0.6 mg/dL Normal 0.2-1.[address] [facility] Comment on above: Performed By: #### L MACU #### [place] [address] Protein [Mass/Vol] 7.6 g/dL Normal 6.4-8.2 [facility] Comment on above: Performed By: #### L MACU #### [address] [address] ALT [Catalytic activity/Vol] 21 U/L Normal 12-78 [facility] Comment on above: Performed By: #### L MACU #### [address] [address] AST [Catalytic activity/Vol] 17 U/L Normal 15-37 [facility] Comment on above: Performed By: #### L MACU #### [facility] [address] [place], [place] [address] Urea nitrogen [Mass/Vol] 8 mg/dL Normal 7-18 [facility] Comment on above: Performed By: #### L MACU #### [place] [address] Glucose [Mass/Vol] 354 mg/dL High 70-99 [facility] Comment on above: Performed By: #### L MACU #### [address] [place], [place] [address] Albumin [Mass/Vol] 3.5 g/dL Normal 3.4-5.0 [facility] Comment on above: Performed By: #### L MACU #### [facility] [address] [place], [place] [address] Anion gap [Moles/Vol] 8 mmol/L Normal 8-16 [facility] Comment on above: Performed By: #### L MACU #### [facility] [address] [place], [place] [address] Calcium [Mass/Vol] 9.1 mg/dL Normal 8.5-10.1 [facility] Comment on above: Performed By: #### L MACU #### [facility] [address] [place] [address] CO2 [Moles/Vol] 29 mmol/L Normal 21-32 [facility] Comment on above: Performed By: #### L MACU #### [place] [address] Chloride [Moles/Vol] 102 mmol/L Normal 98-[address] [facility] Comment on above: Performed By: #### L MACU #### [place] [address] Potassium [Moles/Vol] 4.8 mmol/L Normal 3.5-5.1 [facility] Comment on above: Performed By: #### L MACU #### [place] [address] Sodium [Moles/Vol] 134 mmol/L Low 136-145 [facility] Comment on above: Performed By: #### L MACU #### [place] [address] Hemogramon 03-14-2019 Erythrocyte distribution width (RBC) [Ratio] 12.8 % Normal 11.5-15.9 [facility] Comment on above: Performed By: #### L MACU #### [place] [address] Hematocrit (Bld) [Volume fraction] 46.8 % Normal 37.0-47.0 [facility] Comment on above: Performed By: #### L MACU #### [facility] [address] [place], [place] [address] Hemoglobin (Bld) [Mass/Vol] 15.7 g/dL Normal 12.0-16.0 [facility] Comment on above: Performed By: #### L MACU #### [facility] [address] [place], [place] [address] MCH (RBC) [Entitic mass] 27.8 pg Normal 27.0-31.0 [facility] Comment on above: Performed By: #### L MACU #### [facility] [address] [place] [address] MCHC (RBC) [Mass/Vol] 33.5 % Normal 32.0-36.0 [facility] Comment on above: Performed By: #### L MACU #### [facility] [address] [place] [address] MCV (RBC) [Entitic vol] 83.0 fL Normal 81.0-99.0 [facility] Comment on above: Performed By: #### L MACU #### [facility] [address] [place] [address] Platelet mean volume (Bld) [Entitic vol] 9.9 fL Normal 7.1-10.5 [facility] Comment on above: Performed By: #### L MACU #### [facility] [address] [place] [address] Platelets (Bld) [#/Vol] 256 thou/cmm Normal 150-400 [facility] Comment on above: Performed By: #### L MACU #### [facility] [address] [place], [place] [address] RBC (Bld) [#/Vol] 5.64 mil/cmm High 4.20-5.40 [facility] Comment on above: Performed By: #### L MACU #### [facility] [address] [place] [address] WBC (Bld) [#/Vol] 10.6 thou/cmm High 4.8-10.[address] [facility] Comment on above: Performed By: #### L MACU #### [facility] [address] [place] [address] Lipase Bloodon 03-14-2019 Lipase Blood 104 U/L Normal 73-393 [facility] Comment on above: Performed By: #### L MACU #### [facility] [address] [place] [address] MDRD GFRon 03-14-2019 GFR/1.73 sq M predicted among non-blacks MDRD (S/P/Bld) [Vol rate/Area] mL/min/{1.73_m2} Normal >60mL/min/ 1.73m2 [facility] Comment on above: Result Comment: If t he patient is , multiply the result by 1.210. Performed By: #### L MACU #### [place] [address] Macroscopic Urinalysison Appearance (U) CLEAR Normal [facility] Comment on above: Performed By: #### L MACU #### [place] [address] Bilirubin Urine Negative Normal Negative [facility] Comment on above: Performed By: #### L MACU #### [place] [address] Color (U) YELLOW Normal [facility] Comment on above: Performed By: #### L MACU #### [place] [address] Glucose Ql (U) 2+ Abnormal Negative [facility] Comment on above: Performed By: #### L MACU #### [place] [address] Hemoglobin,Urine Negative Normal Negative [facility] Comment on above: Performed By: #### L MACU #### [place] [address] Ketone Urine Negative Normal Negative [facility] Comment on above: Performed By: #### L MACU #### [place] [address] Leukocytes Esterase Negative Normal Negative [facility] Comment on above: Performed By: #### L MACU #### [facility] [address] [place] [address] Nitrites Urine Negative Normal Negative [facility] Comment on above: Performed By: #### L MACU #### [facility] [address] [place] [address] pH (U) 5.5 [pH] Normal 5.0-8.0 [facility] Comment on above: Performed By: #### L MACU #### [facility] [address] [place] [address] Protein (U) [Mass/Vol] Negative Normal Negative [facility] Comment on above: Performed By: #### L MACU #### [place] [address] Specific [place], Ur 1.015 Normal 1.005-1 .03 0 [facility] Comment on above: Performed By: #### L MACU #### [place] [address] Urobilinogen,Ur 0.2 EU/dL Normal 0.2-1.0 [facility] Comment on above: Performed By: #### L MACU #### [place] [address] Urine HCG, Qual.on 9 Beta HCG ( test) Ql (U) Negative Normal Negative [facility] Comment on above: Performed By: #### L MACU #### [place] [address] Comprehensive Panelon 2018 Albumin [Mass/Vol] 3.4 g/dL Normal 3.4-5.0 [facility] Comment on above: Performed By: #### L MACU #### [place] [address] ALP [Catalytic activity/Vol] 109 U/L Normal 46-116 [facility] Comment on above: Performed By: #### L MACU #### [place] [address] ALT-SGPT Blood 20 U/L Normal 14-63 [facility] Comment on above: Performed By: #### L MACU #### [facility] [address] [place], [place] [address] Anion gap [Moles/Vol] 15 mmol/L Normal 8-20 [facility] Comment on above: Performed By: #### L MACU #### [facility] [address] [place], [place] [address] AST-SGOT Blood 19 U/L Normal 15-37 [facility] Comment on above: Performed By: #### L MACU #### [facility] [address] [place], [place] [address] Bilirubin Ql (U) 0.8 mg/dL Normal 0.2-1.0 [facility] Comment on above: Performed By: #### L MACU #### [facility] [address] [place], [place] [address] Calcium [Mass/Vol] 9.0 mg/dL Normal 8.5-10.1 [facility] Comment on above: Performed By: #### L MACU #### [facility] [address] [place] [address] CO2 Blood 27 mEq/L Normal 21-32 [facility] Comment on above: Performed By: #### L MACU #### [facility] [address] [place], [place] [address] Creatinine [Mass/Vol] 0.62 mg/dL Normal 0.51-0.95 [facility] Comment on above: Performed By: #### L MACU #### [facility] [address] [place], [place] [address] Glucose [Mass/Vol] 343 mg/dL High 70-99 [facility] General Comment on above: Performed By: #### L MACU #### [facility] [address] [place], [place] [address] Protein [Mass/Vol] 7.5 g/dL Normal 6.4-8.2 [facility] Comment on above: Performed By: #### L MACU #### [place] [address] Urea nitrogen [Mass/Vol] 3 mg/dL Low 7-25 [facility] Comment on above: Performed By: #### L MACU #### [facility] [address] [place], [place] [address] Urea nitrogen/Creatinine [Mass ratio] 5 mg/mg Low 10-20 [facility] Comment on above: Performed By: #### L MACU #### [facility] [address] [place], [place] [address] Chloride [Moles/Vol] 100 mmol/L Normal 98-[address] [facility] Comment on above: Result Comment: Test ing performed on an [employer] i-STAT. Performed By: #### L MACU #### [facility] [address] [place], [place] [address] Potassium [Moles/Vol] 3.7 mmol/L Normal 3.5-4.9 [facility] Comment on above: Result Comment: Test ing performed on an [employer] i-STAT. Performed By: #### L MACU #### [facility] [address] [place], [place] [address] Sodium [Moles/Vol] 138 mmol/L Normal 138-146 [facility] Comment on above: Result Comment: Test ing performed on an [employer] i-STAT. Performed By: #### L MACU #### [facility] [address] [place], [place] [address] D-Dimer Quantitativeon 10-27 D-Dimer Quantitative 310 ng/mL(FEU) Normal <450 [facility] Comment on above: Result Comment: 500 ng/mL [...] >=35.8%. Performed By: #### L MACU #### [facility] [address] [place] [address] Hemogramon 10-27-2018 Erythrocyte distribution width (RBC) [Ratio] 12.5 % Normal 11.5-15.9 [facility] Comment on above: Performed By: #### L MACU #### [facility] [address] [place] [address] Hematocrit (Bld) [Volume fraction] 46.1 % Normal 37.0-47.0 [facility] Comment on above: Performed By: #### L MACU #### [facility] [address] [place] [address] Hemoglobin (Bld) [Mass/Vol] 15.8 g/dL Normal 12.0-16.0 [facility] Comment on above: Performed By: #### L MACU #### [place] [address] MCH (RBC) [Entitic mass] 27.8 pg Normal 27.0-31.0 [facility] Comment on above: Performed By: #### L MACU #### [facility] [address] [place] [address] MCHC (RBC) [Mass/Vol] 34.3 % Normal 32.0-36.0 [facility] Comment on above: Performed By: #### L MACU #### [place] [address] MCV (RBC) [Entitic vol] 81.0 fL Normal 81.0-99.0 [facility] Comment on above: Performed By: #### L MACU #### [facility] [address] [place] [address] Platelet mean volume (Bld) [Entitic vol] 10.0 fL Normal 7.1-10.5 [facility] Comment on above: Performed By: #### L MACU #### [facility] [address] [place] [address] Platelets (Bld) [#/Vol] 223 thou/cmm Normal 150-400 [facility] Comment on above: Performed By: #### L MACU #### [facility] [address] [place], [place] [address] RBC (Bld) [#/Vol] 5.69 mil/cmm High 4.20-5.40 [facility] Comment on above: Performed By: #### L MACU #### [facility] [address] [place], [place] [address] WBC (Bld) [#/Vol] 10.0 thou/cmm Normal 4.8-10.[address] [facility] Comment on above: Performed By: #### L MACU #### [place] [address] MDRD eGFRon 10-27-2018 GFR/1.73 sq M predicted among non-blacks MDRD (S/P/Bld) [Vol rate/Area] mL/min/{1.73_m2} Normal >60mL/min/ 1.73m2 [facility] Comment on above: Result Comment: If t he patient is , multiply the result by 1.210. Performed By: #### L MACU #### [place] [address] N-terminal Pro-BNPon 019 Natriuretic peptide B (Bld) [Mass/Vol] 1340.0 pg/mL Normal [facility] Comment on above: Result Comment: Note new reference range: Normal Reference Range: Patients <75 yrs old <125pg/ml Patients >=75 yrs old <450 pg/ml Performed By: #### L MACU #### [facility] [address] [place] [address] Troponin Ion 10-27-2018 Troponin I.cardiac [Mass/Vol] ng/mL Normal <=0.07 [facility] Comment on above: Performed By: #### L MACU #### [place] [address] Troponin I.cardiac [Mass/Vol] ng/mL Normal <=0.07 [facility] Comment on above: Performed By: #### L MACU #### [place] [address] Troponin Ion 10-21-2018 Troponin I.cardiac [Mass/Vol] ng/mL Normal <=0.07 [facility] Comment on above: Performed By: #### L CBCD #### [facility] [address] [place], [place] [address] Basic Panelon 10-20-2018 Anion gap [Moles/Vol] 17 mmol/L Normal 8-20 [facility] Comment on above: Performed By: #### L CBCD #### [facility] [address] [place], [place] [address] Calcium [Mass/Vol] 9.7 mg/dL Normal 8.5-10.1 [facility] Comment on above: Performed By: #### L CBCD #### [address] [address] CO2 Blood 26 mEq/L Normal 21-32 [facility] Comment on above: Performed By: #### L CBCD #### [address] [address] Creatinine [Mass/Vol] 0.77 mg/dL Normal 0.51-0.95 [facility] Comment on above: Performed By: #### L CBCD #### [address] [address] Glucose [Mass/Vol] 328 mg/dL High 70-99 [facility] Comment on above: Performed By: #### L CBCD #### [address] [address] Urea nitrogen [Mass/Vol] 6 mg/dL Low 7-25 [facility] Comment on above: Performed By: #### L CBCD #### [address] [address] Urea nitrogen/Creatinine [Mass ratio] 8 mg/mg Low 10-20 [facility] Comment on above: Performed By: #### L CBCD #### [address] [address] Chloride [Moles/Vol] 100 mmol/L Normal 98-[address] [facility] Comment on above: Result Comment: Test ing performed on an [employer] i-STAT. Performed By: #### L CBCD #### [facility] [address] [place], [place] [address] Potassium [Moles/Vol] 3.9 mmol/L Normal 3.5-4.9 [facility] Comment on above: Result Comment: Test ing performed on an [employer] i-STAT. Performed By: #### L CBCD #### [facility] [address] [place], [place] [address] Sodium [Moles/Vol] 139 mmol/L Normal 138-146 [facility] Comment on above: Result Comment: Test ing performed on an [employer] i-STAT. Performed By: #### L CBCD #### [address] [address] D-Dimer Quantitativeon 10-20 D-Dimer Quantitative 310 ng/mL(FEU) Normal <450 [facility] Comment on above: Result Comment: 500 ng/mL [...] >=35.8%. Performed By: #### L CBCD #### [facility] [address] [place], [place] [address] Glucose Meteron 10-20-2018 Glucose [Mass/Vol] 284 mg/dL High 70-99 [facility] Comment on above: Result Comment: MD Mccracken OTIFIED Testing performed at [address] [address] Performed By: #### L CBCD #### [address] [address] Hemogram/Manual Diffon 10-20 Abs. Baso 0.00 thou/cmm Normal 0.00-0.08 [facility] Comment on above: Performed By: #### L CBCD #### [facility] [address] [place] [address] Abs. Eosin 0.00 thou/cmm Normal 0.00-0.41 [facility] Comment on above: Performed By: #### L CBCD #### [facility] [address] [place] [address] Abs. Lymph 3.17 thou/cmm Normal 1.50-3.65 [facility] Comment on above: Performed By: #### L CBCD #### [facility] [address] [place] [address] Abs. Brule 0.98 thou/cmm Normal 0.20-1.00 [facility] Comment on above: Performed By: #### L CBCD #### [facility] [address] [place] [address] Abs. Neut (ANC) 8.05 thou/cmm High 3.00-5.67 [facility] Comment on above: Performed By: #### L CBCD #### [facility] [address] [place] [address] Atypical Lymph 4.0 % Normal [facility] Comment on above: Performed By: #### L CBCD #### [facility] [address] [place] [address] Basophil 0.0 % Normal [facility] Comment on above: Performed By: #### L CBCD #### [facility] [address] [place] [address] Eosinophil 0.0 % Normal [facility] Comment on above: Performed By: #### L CBCD #### [facility] [address] [place] [address] Lymphocyte 22.0 % Normal [facility] Comment on above: Performed By: #### L CBCD #### [facility] [address] [place] [address] Monocyte 8.0 % Normal [facility] Comment on above: Performed By: #### L CBCD #### [facility] [address] [place] [address] Platelets (Bld) [#/Vol] Normal Normal [facility] Comment on above: Performed By: #### L CBCD #### [facility] [address] [place] [address] RBC morphology finding Nom (Bld) Normal Normal [facility] Comment on above: Performed By: #### L CBCD #### [facility] [address] [place] [address] Seg Neutrophil 66.0 % Normal [facility] Comment on above: Performed By: #### L CBCD #### [facility] [address] [place] [address] Diff Type Manual Diff Normal [facility] Comment on above: Performed By: #### L CBCD #### [place] [address] Erythrocyte distribution width (RBC) [Ratio] 12.9 % Normal 11.5-15.9 [facility] Comment on above: Performed By: #### L CBCD #### [facility] [address] [place] [address] Hematocrit (Bld) [Volume fraction] 47.6 % High 37.0-47.0 [facility] Comment on above: Performed By: #### L CBCD #### [place] [address] Hemoglobin (Bld) [Mass/Vol] 16.1 g/dL High 12.0-16.0 [facility] Comment on above: Performed By: #### L CBCD #### [facility] [address] [place] [address] MCH (RBC) [Entitic mass] 27.8 pg Normal 27.0-31.0 [facility] Comment on above: Performed By: #### L CBCD #### [facility] [address] [place] [address] MCHC (RBC) [Mass/Vol] 33.8 % Normal 32.0-36.0 [facility] Comment on above: Performed By: #### L CBCD #### [place] [address] MCV (RBC) [Entitic vol] 82.2 fl Normal 81.0-99.0 [facility] Comment on above: Performed By: #### L CBCD #### [facility] [address] [place] [address] Platelet mean volume (Bld) [Entitic vol] 9.9 fl Normal 7.1-10.5 [facility] Comment on above: Performed By: #### L CBCD #### [place] [address] Platelets (Bld) [#/Vol] 250 thou/cmm Normal 150-400 [facility] Comment on above: Performed By: #### L CBCD #### [place] [address] RBC (Bld) [#/Vol] 5.79 mil/cmm High 4.20-5.40 [facility] Comment on above: Performed By: #### L CBCD #### [place] [address] WBC (Bld) [#/Vol] 12.2 thou/cmm High 4.8-10.[address] [facility] Comment on above: Performed By: #### L CBCD #### [place] [address] MDRD eGFRon 10-20-2018 GFR/1.73 sq M predicted among non-blacks MDRD (S/P/Bld) [Vol rate/Area] mL/min/{1.73_m2} Normal >60mL/min/ 1.73m2 [facility] Comment on above: Result Comment: If t he patient is , multiply the result by 1.210. Performed By: #### L CBCD #### [place] [address] N-terminal Pro-BNPon 019 Natriuretic peptide B (Bld) [Mass/Vol] 751.0 pg/mL Normal [facility] Comment on above: Result Comment: Note new reference range: Normal Reference Range: Patients <75 yrs old <125pg/ml Patients >=75 yrs old <450 pg/ml Performed By: #### L CBCD #### [facility] [address] [place] [address] Troponin Ion 10-20-2018 Troponin I.cardiac [Mass/Vol] ng/mL Normal <=0.07 [facility] Comment on above: Performed By: #### L CBCD #### [facility] [address] [place] [address] Comprehensive Panelon 2018 Albumin [Mass/Vol] 3.1 g/dL Low 3.4-5.0 [facility] Comment on above: Performed By: #### L P14 ####[place] [address] ALP [Catalytic activity/Vol] 93 U/L Normal 46-116 [facility] Comment on above: Performed By: #### L P14 ####[place] [address] ALT-SGPT Blood 22 U/L Normal 14-63 [facility] Comment on above: Performed By: #### L P14 ####[place] [address] Anion gap [Moles/Vol] 13 mmol/L Normal 8-20 [facility] Comment on above: Performed By: #### L P14 ####[place] [address] AST-SGOT Blood 20 U/L Normal 15-37 [facility] Comment on above: Performed By: #### L P14 ####[place] [address] Bilirubin Ql (U) 0.8 mg/dL Normal 0.2-1.0 [facility] Comment on above: Performed By: #### L P14 ####[place] [address] Calcium [Mass/Vol] 9.2 mg/dL Normal 8.5-10.1 [facility] Comment on above: Performed By: #### L P14 ####[place] [address] CO2 Blood 31 mEq/L Normal 21-32 [facility] Comment on above: Performed By: #### L P14 ####[facility] [place], [place] [address] Creatinine [Mass/Vol] 0.73 mg/dL Normal 0.51-0.95 [facility] Comment on above: Performed By: #### L P14 ####[address] [address] Glucose [Mass/Vol] 228 mg/dL High 70-99 [facility] Comment on above: Performed By: #### L P14 ####[address] [address] Protein [Mass/Vol] 7.0 g/dL Normal 6.4-8.2 [facility] Comment on above: Performed By: #### L P14 ####[address] [address] Urea nitrogen [Mass/Vol] 6 mg/dL Low 7-25 [facility] Comment on above: Performed By: #### L P14 ####[address] [address] Urea nitrogen/Creatinine [Mass ratio] 8 mg/mg Low 10-20 [facility] Comment on above: Performed By: #### L P14 ####[address] [address] Chloride [Moles/Vol] 98 mmol/L Normal 98-[address] [facility] Comment on above: Result Comment: Test ing performed on an [employer] i-STAT. Performed By: #### L P14 ####[address] [address] Potassium [Moles/Vol] 4.2 mmol/L Normal 3.5-4.9 [facility] Comment on above: Result Comment: Test ing performed on an [employer] i-STAT. Performed By: #### L P14 ####[address] [address] Sodium [Moles/Vol] 138 mmol/L Normal 138-146 [facility] Comment on above: Result Comment: Test ing performed on an [employer] i-STAT. Performed By: #### L P14 ####[place] [address] Hemogramon 10-04-2018 Erythrocyte distribution width (RBC) [Ratio] 12.6 % Normal 11.5-15.9 [facility] Comment on above: Performed By: #### L CBC ####[address] [address] Hematocrit (Bld) [Volume fraction] 46.2 % Normal 37.0-47.0 [facility] Comment on above: Performed By: #### L CBC ####[place] [address] Hemoglobin (Bld) [Mass/Vol] 15.3 g/dL Normal 12.0-16.0 [facility] Comment on above: Performed By: #### L CBC ####[place] [address] MCH (RBC) [Entitic mass] 27.5 pg Normal 27.0-31.0 [facility] Comment on above: Performed By: #### L CBC ####[place] [address] MCHC (RBC) [Mass/Vol] 33.1 % Normal 32.0-36.0 [facility] Comment on above: Performed By: #### L CBC ####[place] [address] MCV (RBC) [Entitic vol] 83.1 fL Normal 81.0-99.0 [facility] Comment on above: Performed By: #### L CBC ####[address] [address] Platelet mean volume (Bld) [Entitic vol] 9.7 fL Normal 7.1-10.5 [facility] Comment on above: Performed By: #### L CBC ####[place] [address] Platelets (Bld) [#/Vol] 261 thou/cmm Normal 150-400 [facility] Comment on above: Performed By: #### L CBC ####[address] [place] [address] RBC (Bld) [#/Vol] 5.56 mil/cmm High 4.20-5.40 [facility] Comment on above: Performed By: #### L CBC ####[facility] [place], [place] [address] WBC (Bld) [#/Vol] 11.9 thou/cmm High 4.8-10.[address] [facility] Comment on above: Performed By: #### L CBC ####[facility] [place] [address] Lactic acidon 10-04-2018 Lactate [Moles/Vol] 1.2 mmol/L Normal 0.4-2.0 [facility] Comment on above: Performed By: #### L CBCD #### [place] [address] Lipase Bloodon 10-04-2018 Lipase Blood 85 U/L Normal 73-393 [facility] Comment on above: Performed By: #### L LIP ####[place] [address] MDRD eGFRon 10-04-2018 GFR/1.73 sq M predicted among non-blacks MDRD (S/P/Bld) [Vol rate/Area] mL/min/{1.73_m2} Normal >60mL/min/ 1.73m2 [facility] Comment on above: Result Comment: If t he patient is , multiply the result by 1.210. Performed By: #### L GFR ####[facility] [place] [address] Macroscopic Urinalysison Appearance (U) CLEAR Normal [facility] Comment on above: Performed By: #### L CBCD #### [place] [address] Bilirubin Urine Negative Normal Negative [facility] Comment on above: Performed By: #### L CBCD #### [place] [address] Color (U) YELLOW Normal [facility] Comment on above: Performed By: #### L CBCD #### [facility] [address] [place] [address] Glucose Ql (U) TRACE Abnormal Negative [facility] Comment on above: Performed By: #### L CBCD #### [facility] [address] [place] [address] Hemoglobin,Urine Negative Normal Negative [facility] Comment on above: Performed By: #### L CBCD #### [place] [address] Ketone Urine Negative Normal Negative [facility] Comment on above: Performed By: #### L CBCD #### [place] [address] Leukocytes Esterase Negative Normal Negative [facility] Comment on above: Performed By: #### L CBCD #### [place] [address] Nitrites Urine Negative Normal Negative [facility] Comment on above: Performed By: #### L CBCD #### [place] [address] pH (U) 7.0 [pH] Normal 5.0-8.0 [facility] Comment on above: Performed By: #### L CBCD #### [place] [address] Protein (U) [Mass/Vol] Negative Normal Negative [facility] Comment on above: Performed By: #### L CBCD #### [place] [address] Specific [place], Ur 1.015 Normal 1.005-1 .03 0 [facility] Comment on above: Performed By: #### L CBCD #### [place] [address] Urobilinogen,Ur 0.2 EU/dL Normal 0.2-1.0 [facility] Comment on above: Performed By: #### L CBCD #### [place] [address] Troponin Ion 10-04-2018 Troponin I.cardiac [Mass/Vol] ng/mL Normal <=0.07 [facility] Comment on above: Performed By: #### L TRP ####[facility] [place], [place] [address] Urine HCG, Qual.on 9 Beta HCG ( test) Ql (U) Negative Normal Negative [facility] Comment on above: Performed By: #### L HCG2 ####[facility] [place], [place] [address] Basic Panelon 09-29-2018 Anion gap [Moles/Vol] 14 mmol/L Normal 8-20 [facility] Comment on above: Performed By: #### L GFR #### [address] [address] Calcium [Mass/Vol] 8.9 mg/dL Normal 8.5-10.1 [facility] Comment on above: Performed By: #### L GFR #### [place] [address] CO2 Blood 28 mEq/L Normal 21-32 [facility] Comment on above: Performed By: #### L GFR #### [address] [address] Creatinine [Mass/Vol] 0.60 mg/dL Normal 0.51-0.95 [facility] Comment on above: Performed By: #### L GFR #### [address] [address] Glucose [Mass/Vol] 154 mg/dL High 70-99 [facility] Comment on above: Performed By: #### L GFR #### [facility] [address] [place], [place] [address] Urea nitrogen [Mass/Vol] 5 mg/dL Low 7-25 [facility] Comment on above: Performed By: #### L GFR #### [address] [address] Urea nitrogen/Creatinine [Mass ratio] 8 mg/mg Low 10-20 [facility] Comment on above: Performed By: #### L GFR #### [address] [address] Chloride [Moles/Vol] 101 mmol/L Normal 98-[address] [facility] Comment on above: Result Comment: Test ing performed on an [employer] i-STAT. Performed By: #### L GFR #### [facility] [address] [place], [place] [address] Potassium [Moles/Vol] 3.9 mmol/L Normal 3.5-4.9 [facility] Comment on above: Result Comment: Test ing performed on an [employer] i-STAT. Performed By: #### L GFR #### [facility] [address] [place], [place] [address] Sodium [Moles/Vol] 139 mmol/L Normal 138-146 [facility] Comment on above: Result Comment: Test ing performed on an [employer] i-STAT. Performed By: #### L GFR #### [place] [address] D-Dimer Quantitativeon 09-29 D-Dimer Quantitative 336 ng/mL(FEU) Normal <450 [facility] Comment on above: Result Comment: 500 ng/mL [...] of >=35.8%. Performed By: #### L DMR ####[facility] [place], [place] [address] Hemogramon 09-29-2018 Erythrocyte distribution width (RBC) [Ratio] 12.8 % Normal 11.5-15.9 [facility] Comment on above: Performed By: #### L GFR #### [facility] [address] [place] [address] Hematocrit (Bld) [Volume fraction] 46.3 % Normal 37.0-47.0 [facility] Comment on above: Performed By: #### L GFR #### [facility] [address] [place], [place] [address] Hemoglobin (Bld) [Mass/Vol] 15.7 g/dL Normal 12.0-16.0 [facility] Comment on above: Performed By: #### L GFR #### [facility] [address] [place], [place] [address] MCH (RBC) [Entitic mass] 27.8 pg Normal 27.0-31.0 [facility] Comment on above: Performed By: #### L GFR #### [facility] [address] [place] [address] MCHC (RBC) [Mass/Vol] 33.9 % Normal 32.0-36.0 [facility] Comment on above: Performed By: #### L GFR #### [place] [address] MCV (RBC) [Entitic vol] 81.9 fL Normal 81.0-99.0 [facility] Comment on above: Performed By: #### L GFR #### [facility] [address] [place] [address] Platelet mean volume (Bld) [Entitic vol] 10.0 fL Normal 7.1-10.5 [facility] Comment on above: Performed By: #### L GFR #### [facility] [address] [place], [place] [address] Platelets (Bld) [#/Vol] 231 thou/cmm Normal 150-400 [facility] Comment on above: Performed By: #### L GFR #### [facility] [address] [place], [place] [address] RBC (Bld) [#/Vol] 5.65 mil/cmm High 4.20-5.40 [facility] Comment on above: Performed By: #### L GFR #### [address] [address] WBC (Bld) [#/Vol] 10.8 thou/cmm High 4.8-10.[address] [facility] Comment on above: Performed By: #### L GFR #### [facility] [address] [place], [place] [address] MDRD eGFRon 09-29-2018 GFR/1.73 sq M predicted among non-blacks MDRD (S/P/Bld) [Vol rate/Area] mL/min/{1.73_m2} Normal >60mL/min/ 1.73m2 [facility] Comment on above: Result Comment: If t he patient is , multiply the result by 1.210. Performed By: #### L GFR ####[place] [address] Troponin Ion 09-29-2018 Troponin I.cardiac [Mass/Vol] ng/mL Normal <=0.07 [facility] Comment on above: Performed By: #### L TRP ####[place] [address] Troponin I.cardiac [Mass/Vol] ng/mL Normal <=0.07 [facility] Comment on above: Performed By: #### L TRP ####[place] [address] Basic Panelon 09-25-2018 Creatinine [Mass/Vol] 0.64 mg/dL Normal 0.51-0.95 [facility] Comment on above: Performed By: #### L GFR #### [place] [address] Anion gap [Moles/Vol] 10 mmol/L Normal 8-16 [facility] Comment on above: Performed By: #### L GFR #### [place] [address] CO2 [Moles/Vol] 26 mmol/L Normal 21-32 [facility] Comment on above: Performed By: #### L GFR #### [place] [address] Glucose [Mass/Vol] 87 mg/dL Normal 70-99 [facility] Comment on above: Performed By: #### L GFR #### [place] [address] Urea nitrogen [Mass/Vol] 13 mg/dL Normal 7-18 [facility] Comment on above: Performed By: #### L GFR #### [facility] [address] [place] [address] Calcium [Mass/Vol] 8.9 mg/dL Normal 8.5-10.1 [facility] Comment on above: Performed By: #### L GFR #### [facility] [address] [place] [address] Chloride [Moles/Vol] 104 mmol/L Normal 98-[address] [facility] Comment on above: Performed By: #### L GFR #### [place] [address] Potassium [Moles/Vol] 3.6 mmol/L Normal 3.5-5.1 [facility] Comment on above: Performed By: #### L GFR #### [place] [address] Sodium [Moles/Vol] 136 mmol/L Normal 136-145 [facility] [facility] Comment on above: Performed By: #### L GFR #### [place] [address] Glucose Meteron 09-25-2018 Glucose [Mass/Vol] 205 mg/dL High 70-99 [facility] Comment on above: Result Comment: CHAYITO MÉNDEZ Performed By: #### L P14 #### [place] [address] Hemogram/Diffon 09-25-2018 Abs Immature Grans 0.04 thou/cmm Normal 0.00-0.05 [facility] Comment on above: Performed By: #### L GFR #### [place] [address] Abs. Baso 0.06 thou/cmm Normal 0.01-0.08 [facility] Comment on above: Result Comment: Smea r scanned; tech agrees with automated differential Performed By: #### L GFR #### [place] [address] Abs. Brule 0.72 thou/cmm High 0.27-0.70 [facility] Comment on above: Performed By: #### L GFR #### [facility] [address] [place], [place] [address] Abs. Neut (ANC) 7.66 thou/cmm High 1.56-6.13 [facility] Comment on above: Performed By: #### L GFR #### [facility] [address] [place], [place] [address] Basophils/100 WBC (Bld) 0.5 % Normal [facility] Comment on above: Performed By: #### L GFR #### [facility] [address] [place], [place] [address] Eosinophils (Bld) [#/Vol] 0.13 thou/cmm Normal 0.00-0.31 [facility] Comment on above: Performed By: #### L GFR #### [address] [address] Eosinophils/100 WBC (Bld) 1.0 % Normal [facility] Comment on above: Performed By: #### L GFR #### [address] [address] Immature Grans 0.30 % Normal [facility] Comment on above: Performed By: #### L GFR #### [address] [address] Lymphocytes (Bld) [#/Vol] 4.07 thou/cmm High 1.18-3.74 [facility] Comment on above: Performed By: #### L GFR #### [facility] [address] [place], [place] [address] Lymphocytes/100 WBC (Bld) 32.1 % Normal [facility] Comment on above: Performed By: #### L GFR #### [facility] [address] [place], [place] [address] Monocytes/100 WBC (Bld) 5.7 % Normal [facility] Comment on above: Performed By: #### L GFR #### [address] [address] Seg Neutrophil 60.4 % Normal [place] Comment on above: Performed By: #### L GFR #### [facility] [address] [place], [place] [address] Erythrocyte distribution width (RBC) [Ratio] 12.5 % Normal 11.7-14.4 [facility] Comment on above: Performed By: #### L GFR #### [facility] [address] [place], [place] [address] Hematocrit (Bld) [Volume fraction] 49.4 % High 34.1-44.9 [facility] Comment on above: Performed By: #### L GFR #### [facility] [address] [place], [place] [address] Hemoglobin (Bld) [Mass/Vol] 16.6 g/dL High 11.2-15.7 [facility] Comment on above: Performed By: #### L GFR #### [facility] [address] [place] [address] MCH (RBC) [Entitic mass] 27.8 pg Normal 25.6-32.2 [facility] Comment on above: Performed By: #### L GFR #### [facility] [address] [place] [address] MCHC (RBC) [Mass/Vol] 33.6 % Normal 31.6-34.8 [facility] Comment on above: Performed By: #### L GFR #### [facility] [address] [place] [address] MCV (RBC) [Entitic vol] 82.7 fL Normal 79.4-94.8 [facility] Comment on above: Performed By: #### L GFR #### [facility] [address] [place], [place] [address] Platelet mean volume (Bld) [Entitic vol] 9.8 fL Normal 9.4-12.3 [facility] Comment on above: Performed By: #### L GFR #### [facility] [address] [place], [place] [address] Platelets (Bld) [#/Vol] 241 thou/cmm Normal 182-369 [facility] Comment on above: Performed By: #### L GFR #### [place] [address] RBC (Bld) [#/Vol] 5.97 mil/cmm High 3.93-5.22 [facility] Comment on above: Performed By: #### L GFR #### [facility] [address] [place] [address] RDW SD 37.4 fl Normal 36.4-46.3 [facility] Comment on above: Performed By: #### L GFR #### [facility] [address] [place] [address] WBC (Bld) [#/Vol] 12.69 thou/cmm High 3.98-10.04 [facility] Comment on above: Performed By: #### L GFR #### [place] [address] MDRD GFRon 09-25-2018 GFR/1.73 sq M predicted among non-blacks MDRD (S/P/Bld) [Vol rate/Area] mL/min/{1.73_m2} Normal >60mL/min/ 1.73m2 [facility] Comment on above: Result Comment: If t he patient is , multiply the result by 1.210. Performed By: #### L GFR #### [place] [address] Urinalysis, reflexon 019 Reflex Comment see below Normal [facility] Comment on above: Result Comment: Refl ex to culture is not indicated based on established laboratory criteria. Performed By: #### L GFR #### [place] [address] Bacteria LM.HPF (Urine sed) [#/Area] NONE Normal None [facility] Comment on above: Performed By: #### L GFR #### [facility] [address] [place] [address] Ep Cells Urine 13.9 /hpf High 0.0-5.0 [facility] Comment on above: Performed By: #### L GFR #### [place] [address] Hyaline Cast 2.4 /lpf High 0.0-1.0 [facility] Comment on above: Performed By: #### L GFR #### [facility] [address] [place] [address] RBC LM.HPF (Urine sed) [#/Area] 1.3 /[HPF] Normal 0.0-5.0 [facility] Comment on above: Performed By: #### L GFR #### [place] [address] WBC, reflex 2.90 /hpf Normal 0.00-5.00 [facility] Comment on above: Performed By: #### L GFR #### [place] [address] Appearance (U) CLOUDY Normal [facility] Comment on above: Performed By: #### L GFR #### [place] [address] Bilirubin (U) [Mass/Vol] see below Abnormal Negative [facility] Comment on above: Result Comment: Dete cted (Unable to confirm). Performed By: #### L GFR #### [place] [address] Color (U) DK YELLOW Normal [facility] Comment on above: Performed By: #### L GFR #### [place] [address] Glucose Ql (U) 250 mg/dL Abnormal Negative [facility] Comment on above: Performed By: #### L GFR #### [place] [address] Hemoglobin,Urine Negative Normal Negative [facility] Comment on above: Performed By: #### L GFR #### [place] [address] Ketone Urine TRACE Abnormal Negative [facility] Comment on above: Performed By: #### L GFR #### [place] [address] Leukocyte esterase Test strip Ql (U) TRACE Abnormal Negative [facility] Comment on above: Performed By: #### L GFR #### [place] [address] Nitrite reflex Negative Normal Negative [facility] Comment on above: Performed By: #### L GFR #### [facility] [address] [place] [address] pH (U) 6.0 [pH] Normal 5.0-8.0 [facility] Comment on above: Performed By: #### L GFR #### [facility] [address] [place], [place] [address] Protein (U) [Mass/Vol] TRACE Abnormal Negative [facility] Comment on above: Performed By: #### L GFR #### [facility] [address] [place] [address] Specific [place], Ur 1.030 Normal 1.005-1 .03 0 [facility] Comment on above: Performed By: #### L GFR #### [facility] [address] [place] [address] Urobilinogen,Ur 1.0 EU/dL Normal 0.0-1.0 [facility] Comment on above: Performed By: #### L GFR #### [place] [address] Comprehensive Panelon 2018 ALP [Catalytic activity/Vol] 114 U/L Normal 46-116 [facility] Comment on above: Performed By: #### L GFR #### [facility] [address] [place], [place] [address] Bilirubin [Mass/Vol] 1.4 mg/dL High 0.2-1.[address] [facility] Comment on above: Performed By: #### L GFR #### [facility] [address] [place] [address] AST [Catalytic activity/Vol] 19 U/L Normal 9-37 [facility] Comment on above: Performed By: #### L GFR #### [facility] [address] [place], [place] [address] Creatinine [Mass/Vol] 0.56 mg/dL Normal 0.51-0.95 [facility] Comment on above: Performed By: #### L GFR #### [place] [address] Protein [Mass/Vol] 6.8 g/dL Normal 6.4-8.2 [facility] Comment on above: Performed By: #### L GFR #### [facility] [address] [place], [place] [address] ALT [Catalytic activity/Vol] 18 U/L Normal 12-78 [facility] Comment on above: Performed By: #### L GFR #### [facility] [address] [place], [place] [address] Glucose [Mass/Vol] 266 mg/dL High 70-99 [facility] Comment on above: Performed By: #### L GFR #### [facility] [address] [place], [place] [address] Albumin [Mass/Vol] 3.2 g/dL Low 3.4-5.0 [facility] Comment on above: Performed By: #### L GFR #### [facility] [address] [place], [place] [address] Anion gap [Moles/Vol] 11 mmol/L Normal 8-16 [facility] Comment on above: Performed By: #### L GFR #### [facility] [address] [place], [place] [address] Calcium [Mass/Vol] 8.9 mg/dL Normal 8.5-10.1 [facility] Comment on above: Performed By: #### L GFR #### [facility] [address] [place], [place] [address] CO2 [Moles/Vol] 25 mmol/L Normal 21-32 [facility] Comment on above: Performed By: #### L GFR #### [facility] [address] [place], [place] [address] Urea nitrogen [Mass/Vol] 8 mg/dL Normal 7-18 [facility] Comment on above: Performed By: #### L GFR #### [facility] [address] [place], [place] [address] Chloride [Moles/Vol] 100 mmol/L Normal 98-[address] [facility] Comment on above: Performed By: #### L GFR #### [facility] [address] [place], [place] [address] Potassium [Moles/Vol] 3.9 mmol/L Normal 3.5-5.1 [facility] Comment on above: Performed By: #### L GFR #### [facility] [address] [place] [address] Sodium [Moles/Vol] 132 mmol/L Low 136-145 [facility] Comment on above: Performed By: #### L GFR #### [facility] [address] [place] [address] Hemogramon 09-24-2018 Erythrocyte distribution width (RBC) [Ratio] 12.6 % Normal 11.7-14.4 [facility] Comment on above: Performed By: #### L GFR #### [place] [address] Hematocrit (Bld) [Volume fraction] 47.5 % High 34.1-44.9 [facility] Comment on above: Performed By: #### L GFR #### [place] [address] Hemoglobin (Bld) [Mass/Vol] 15.9 g/dL High 11.2-15.7 [facility] Comment on above: Performed By: #### L GFR #### [place] [address] MCH (RBC) [Entitic mass] 27.7 pg Normal 25.6-32.2 [facility] Comment on above: Performed By: #### L GFR #### [place] [address] MCHC (RBC) [Mass/Vol] 33.5 % Normal 31.6-34.8 [facility] Comment on above: Performed By: #### L GFR #### [place] [address] MCV (RBC) [Entitic vol] 82.8 fL Normal 79.4-94.8 [facility] Comment on above: Performed By: #### L GFR #### [place] [address] Platelet mean volume (Bld) [Entitic vol] 9.9 fL Normal 9.4-12.3 [facility] Comment on above: Performed By: #### L GFR #### [facility] [address] [place], [place] [address] Platelets (Bld) [#/Vol] 248 thou/cmm Normal 182-369 [facility] Comment on above: Performed By: #### L GFR #### [facility] [address] [place], [place] [address] RBC (Bld) [#/Vol] 5.74 mil/cmm High 3.93-5.22 [facility] Comment on above: Performed By: #### L GFR #### [facility] [address] [place], [place] [address] RDW SD 38.0 fl Normal 36.4-46.3 [facility] Comment on above: Performed By: #### L GFR #### [facility] [address] [place], [place] [address] WBC (Bld) [#/Vol] 11.62 thou/cmm High 3.98-10.04 [facility] Comment on above: Performed By: #### L GFR #### [facility] [address] [place], [place] [address] Lipid Profileon 09-24-2018 Cholesterol in HDL [Mass/Vol] 35 mg/dL Normal >40 [facility] Comment on above: Performed By: #### L GFR #### [facility] [address] [place] [address] Cholesterol in LDL [Mass/Vol] 120 mg/dL Normal [facility] Comment on above: Result Comment: No C AD and with fewer than 2 CAD risk factors <160 mg/dL No CAD but with 2 or more CAD risk factors <130 mg/dL Definite CAD or other atherosclerotic disease <100 mg/dL Performed By: #### L GFR #### [facility] [address] [place], [place] [address] Cholesterol in LDL/Cholesterol in HDL [Mass ratio] 3.4 Normal 0.6-3.6 [facility] Comment on above: Result Comment: LDL, VLDL,LDL/HDL, Invalid if Triglyceride >400 Performed By: #### L GFR #### [facility] [address] [place], [place] [address] Cholesterol.total/Pipe sterol in HDL [Mass ratio] 5.9 {ratio} High 1.8-5.3 [facility] Comment on above: Performed By: #### L GFR #### [facility] [address] [place], [place] [address] Cholesterol [Mass/Vol] 205 mg/dL High 0-199 [facility] Comment on above: Result Comment: <200 Desirable 200-240 Borderline >240 High Performed By: #### L GFR #### [facility] [address] [place], [place] [address] Cholesterol in VLDL [Mass/Vol] 50 mg/dL Normal <50 Desired [facility] Comment on above: Performed By: #### L GFR #### [facility] [address] [place], [place] [address] Triglyceride [Mass/Vol] 252 mg/dL High 0-149 [facility] Comment on above: Result Comment: < 20 0 Desirable Result invalid if not a fasting specimen. Performed By: #### L GFR #### [facility] [address] [place], [place] [address] Protimeon 09-24-2018 INR Coag (PPP) [Relative time] 0.97 {INR} Normal 0.90-1.30 [facility] Comment on above: Result Comment: Charissa min K Antagonist (VKA) Therapeutic Range: INR 2 to 3 (Target INR of 2.5) Note: For patients treated with VKA drugs, such as warfarin, the [employer] 2012 Guideline recommends [...] Chest 2012; 141:7S-47S Sampson SOMMERS et al. [facility] 2017; 70: 252-289 Performed By: #### L GFR #### [place] [address] PT Coag (PPP) [Time] 10.1 s Normal 9.7-13.[address] [facility] Comment on above: Performed By: #### L GFR #### [place] [address] Beta Hydroxybutyrateon 09-23 Beta Hydroxybutyrate 0.70 mmol/L High <0.10-0.27 [facility] Comment on above: Performed By: #### L LIP #### [place] [address] CPKon 09-23-2018 CK [Catalytic activity/Vol] 58 U/L Normal 26-192 [facility] Comment on above: Performed By: #### L P14 #### [place] [address] Comprehensive Panelon 2018 Anion gap [Moles/Vol] 19 mmol/L Normal 8-20 [facility] Comment on above: Performed By: #### L LIP #### [place] [address] Glucose [Mass/Vol] 422 mg/dL Critically high 70-99 [facility] Comment on above: Result Comment: RESU LT RECHECKED Performed By: #### L LIP #### [place] [address] Chloride [Moles/Vol] 98 mmol/L Normal 98-[address] [facility] Comment on above: Result Comment: Test ing performed on an [employer] i-STAT. Performed By: #### L LIP #### [place] [address] Potassium [Moles/Vol] 3.9 mmol/L Normal 3.5-4.9 [facility] Comment on above: Result Comment: Test ing performed on an [employer] i-STAT. Performed By: #### L LIP #### [place] [address] Sodium [Moles/Vol] 135 mmol/L Low 138-146 [facility] Comment on above: Result Comment: Test ing performed on an [employer] i-STAT. Performed By: #### L LIP #### [facility] [address] [place] [address] Albumin [Mass/Vol] 3.6 g/dL Normal 3.4-5.0 [facility] Comment on above: Performed By: #### L LIP #### [facility] [address] [place] [address] ALP [Catalytic activity/Vol] 131 U/L High 46-116 [facility] Comment on above: Performed By: #### L LIP #### [place] [address] ALT-SGPT Blood 21 U/L Normal 14-63 [facility] Comment on above: Performed By: #### L LIP #### [place] [address] AST-SGOT Blood 28 U/L Normal 15-37 [facility] Comment on above: Performed By: #### L LIP #### [place] [address] Bilirubin Ql (U) 1.2 mg/dL High 0.2-1.0 [facility] Comment on above: Performed By: #### L LIP #### [place] [address] Calcium [Mass/Vol] 9.3 mg/dL Normal 8.5-10.1 [facility] Comment on above: Performed By: #### L LIP #### [facility] [address] [place] [address] CO2 Blood 26 mEq/L Normal 21-32 [facility] Comment on above: Performed By: #### L LIP #### [place] [address] Creatinine [Mass/Vol] 0.51 mg/dL Normal 0.51-0.95 [facility] Comment on above: Performed By: #### L LIP #### [place] [address] Protein [Mass/Vol] 7.7 g/dL Normal 6.4-8.2 [facility] Comment on above: Performed By: #### L LIP #### [facility] [address] [place], [place] [address] Urea nitrogen [Mass/Vol] 9 mg/dL Normal 7-25 [facility] Comment on above: Performed By: #### L LIP #### [facility] [address] [place], [place] [address] Urea nitrogen/Creatinine [Mass ratio] 18 mg/mg Normal 10-20 [facility] Comment on above: Performed By: #### L LIP #### [facility] [address] [place], [place] [address] D-Dimer Quantitativeon 09-23 D-Dimer Quantitative 417 ng/mL(FEU) Normal <450 [facility] Comment on above: Result Comment: 500 ng/mL [...] >=35.8%. Performed By: #### L P14 #### [facility] [address] [place], [place] [address] Glucose Bloodon 09-23-2018 Glucose [Mass/Vol] 393 mg/dL High 70-99 [facility] Comment on above: Performed By: #### L P14 #### [facility] [address] [place], [place] [address] Glucose Meteron 09-23-2018 Glucose [Mass/Vol] 317 mg/dL High 70-99 [facility] Comment on above: Result Comment: CHAYITO MÉNDEZ MD NOTIFIED [place] [address] Performed By: #### L LIP #### [place] [address] Hemogram/Diffon 09-23-2018 Abs. Baso 0.05 thou/cmm Normal 0.00-0.08 [facility] Comment on above: Performed By: #### L LIP #### [place] [address] Abs. Brule 0.38 thou/cmm Normal 0.20-1.00 [facility] Comment on above: Performed By: #### L LIP #### [place] [address] Abs. Neut (ANC) 8.10 thou/cmm High 3.00-5.67 [facility] Comment on above: Performed By: #### L LIP #### [place] [address] Basophils/100 WBC (Bld) 0.5 % Normal [facility] Comment on above: Performed By: #### L LIP #### [place] [address] Eosinophils (Bld) [#/Vol] 0.05 thou/cmm Normal 0.00-0.41 [facility] Comment on above: Performed By: #### L LIP #### [place] [address] Eosinophils/100 WBC (Bld) 0.5 % Normal [facility] Comment on above: Performed By: #### L LIP #### [place] [address] Erythrocyte distribution width (RBC) [Ratio] 12.9 % Normal 11.5-15.9 [facility] Comment on above: Performed By: #### L LIP #### [place] [address] Hematocrit (Bld) [Volume fraction] 47.8 % High 37.0-47.0 [facility] Comment on above: Performed By: #### L LIP #### [address], [place] [address] Hemoglobin (Bld) [Mass/Vol] 16.5 g/dL High 12.0-16.0 [facility] Comment on above: Performed By: #### L LIP #### [facility] [address] [place], [place] [address] Lymphocytes (Bld) [#/Vol] 1.52 thou/cmm Normal 1.50-3.65 [facility] Comment on above: Performed By: #### L LIP #### [facility] [address] [place], [place] [address] Lymphocytes/100 WBC (Bld) 15.0 % Normal [facility] Comment on above: Performed By: #### L LIP #### [facility] [address] [place], [place] [address] MCH (RBC) [Entitic mass] 28.0 pg Normal 27.0-31.0 [facility] Comment on above: Performed By: #### L LIP #### [place] [address] MCHC (RBC) [Mass/Vol] 34.5 % Normal 32.0-36.0 [facility] Comment on above: Performed By: #### L LIP #### [address] [address] MCV (RBC) [Entitic vol] 81.0 fL Normal 81.0-99.0 [facility] Comment on above: Performed By: #### L LIP #### [address] [address] Monocytes/100 WBC (Bld) 3.8 % Normal [facility] Comment on above: Performed By: #### L LIP #### [facility] [address] [place], [place] [address] Platelet mean volume (Bld) [Entitic vol] 10.2 fL Normal 7.1-10.5 [facility] Comment on above: Performed By: #### L LIP #### [address] [address] Platelets (Bld) [#/Vol] 202 thou/cmm Normal 150-400 [facility] Comment on above: Performed By: #### L LIP #### [facility] [address] [place], [place] [address] RBC (Bld) [#/Vol] 5.90 mil/cmm High 4.20-5.40 [facility] Comment on above: Performed By: #### L LIP #### [facility] [address] [place], [place] [address] Seg Neutrophil 80.2 % Normal [facility] Comment on above: Performed By: #### L LIP #### [facility] [address] [place], [place] [address] WBC (Bld) [#/Vol] 10.1 thou/cmm Normal 4.8-10.[address] [facility] Comment on above: Performed By: #### L LIP #### [place] [address] Hgb A1con 09-23-2018 HbA1c (Bld) [Mass fraction] 11.6 % High 4.2-6.3 [facility] Comment on above: Result Comment: Meth od is National Glycohemoglobin Standardization Program (NGSP) compliant. Performed By: #### L P14 #### [facility] [address] [place] [address] HbA1c (Bld) [Mass fraction] 286 mg/dl Normal [facility] Comment on above: Performed By: #### L P14 #### [place] [address] Lipase Bloodon 09-23-2018 Lipase Blood 131 U/L Normal 73-393 [facility] Comment on above: Performed By: #### L LIP #### [facility] [address] [place] [address] MDRD eGFRon 09-23-2018 GFR/1.73 sq M predicted among non-blacks MDRD (S/P/Bld) [Vol rate/Area] mL/min/{1.73_m2} Normal >60mL/min/ 1.73m2 [facility] Comment on above: Result Comment: If t he patient is , multiply the result by 1.210. Performed By: #### L LIP #### [facility] [address] [place], [place] [address] Magnesium Bloodon 09-23-2018 Magnesium [Mass/Vol] 2.1 mg/dL Normal 1.6-2.[address] [facility] Comment on above: Performed By: #### L P14 #### [place] [address] N-terminal Pro-BNPon 019 Natriuretic peptide B (Bld) [Mass/Vol] 2027 pg/mL Normal [facility] Comment on above: Result Comment: Acut e CHF Rule-in <50 yrs old >= 450 pg/ml >50 yrs old >= 900 pg/ml Abnormal Pro-BNP All patients >=300 pg/ml Performed By: #### L P14 #### [place] [address] Troponin Ion 09-23-2018 Troponin I.cardiac [Mass/Vol] ng/mL Normal 0.015-0.04 5 [facility] Comment on above: Performed By: #### L P14 #### [place] [address] Troponin I.cardiac [Mass/Vol] ng/mL Normal 0.015-0.04 5 [facility] Comment on above: Performed By: #### L P14 #### [place] [address] Troponin I.cardiac [Mass/Vol] ng/mL Normal <=0.07 [facility] Comment on above: Performed By: #### L P14 #### [place] [address] Troponin I.cardiac [Mass/Vol] ng/mL Normal <=0.07 [facility] Comment on above: Performed By: #### L LIP #### [place] [address] Comprehensive Panelon 2018 Albumin [Mass/Vol] 3.8 g/dL Normal 3.4-5.0 [facility] Comment on above: Performed By: #### L MCBD #### [place] [address] ALP [Catalytic activity/Vol] 133 U/L High 46-116 [facility] Comment on above: Performed By: #### L MCBD #### [facility] [address] [place], [place] [address] ALT-SGPT Blood 20 U/L Normal 14-63 [facility] Comment on above: Performed By: #### L MCBD #### [facility] [address] [place] [address] AST-SGOT Blood 17 U/L Normal 15-37 [facility] Comment on above: Performed By: #### L MCBD #### [facility] [address] [place] [address] Bilirubin Ql (U) 0.8 mg/dL Normal 0.2-1.0 [facility] Comment on above: Performed By: #### L MCBD #### [facility] [address] [place] [address] Calcium [Mass/Vol] 9.4 mg/dL Normal 8.5-10.1 [facility] Comment on above: Performed By: #### L MCBD #### [facility] [facility] [address] [place] [address] Creatinine [Mass/Vol] 0.58 mg/dL Normal 0.51-0.95 [facility] Comment on above: Performed By: #### L MCBD #### [facility] [address] [place] [address] Glucose [Mass/Vol] 375 mg/dL High 70-99 [facility] Comment on above: Performed By: #### L MCBD #### [facility] [address] [place], [place] [address] Protein [Mass/Vol] 7.9 g/dL Normal 6.4-8.2 [facility] Comment on above: Performed By: #### L MCBD #### [facility] [address] [address] Urea nitrogen [Mass/Vol] 5 mg/dL Low 7-25 [facility] Comment on above: Performed By: #### L MCBD #### [facility] [address] [place] [address] Urea nitrogen/Creatinine [Mass ratio] 9 mg/mg Low 10-20 [facility] Comment on above: Performed By: #### L MCBD #### [facility] [address] [place] [address] Anion gap [Moles/Vol] 15 mmol/L Normal 8-20 [facility] Comment on above: Performed By: #### L MCBD #### [facility] [address] [place] [address] CO2 Blood 27 mEq/L Normal 21-32 [facility] Comment on above: Performed By: #### L MCBD #### [facility] [address] [place] [address] Chloride [Moles/Vol] 97 mmol/L Low 98-[address] [facility] Comment on above: Result Comment: Test ing performed on an [employer] i-STAT. Performed By: #### L MCBD #### [place] [address] Potassium [Moles/Vol] 4.5 mmol/L Normal 3.5-4.9 [facility] Comment on above: Result Comment: Test ing performed on an [employer] i-STAT. Performed By: #### L MCBD #### [place] [address] Sodium [Moles/Vol] 135 mmol/L Low 138-146 [facility] Comment on above: Result Comment: Test ing performed on an Palacio i-STAT. Performed By: #### L MCBD #### [facility] [address] [place] [address] Hemogram/Diffon 09-06-2018 Abs. Baso 0.05 thou/cmm Normal 0.00-0.08 [facility] Comment on above: Performed By: #### L MCBD #### [place] [address] Abs. Brule 0.43 thou/cmm Normal 0.20-1.00 [facility] Comment on above: Performed By: #### L MCBD #### [place] [address] Abs. Neut (ANC) 5.29 thou/cmm Normal 3.00-5.67 [facility] Comment on above: Performed By: #### L MCBD #### [facility] [address] [place], [place] [address] Basophils/100 WBC (Bld) 0.7 % Normal [facility] Comment on above: Performed By: #### L MCBD #### [facility] [address] [place] [address] Eosinophils (Bld) [#/Vol] 0.11 thou/cmm Normal 0.00-0.41 [facility] Comment on above: Performed By: #### L MCBD #### [facility] [address] [place] [address] Eosinophils/100 WBC (Bld) 1.4 % Normal [facility] Comment on above: Performed By: #### L MCBD #### [place] [address] Erythrocyte distribution width (RBC) [Ratio] 12.9 % Normal 11.5-15.9 [facility] Comment on above: Performed By: #### L MCBD #### [facility] [address] [place] [address] Hematocrit (Bld) [Volume fraction] 48.3 % High 37.0-47.0 [facility] Comment on above: Performed By: #### L MCBD #### [facility] [address] [place] [address] Hemoglobin (Bld) [Mass/Vol] 16.4 g/dL High 12.0-16.0 [facility] Comment on above: Performed By: #### L MCBD #### [facility] [address] [place] [address] Lymphocytes (Bld) [#/Vol] 1.72 thou/cmm Normal 1.50-3.65 [facility] Comment on above: Performed By: #### L MCBD #### [address] [address] Lymphocytes/100 WBC (Bld) 22.6 % Normal [facility] Comment on above: Performed By: #### L MCBD #### [facility] [address] [place], [place] [address] MCH (RBC) [Entitic mass] 27.8 pg Normal 27.0-31.0 [facility] Comment on above: Performed By: #### L MCBD #### [facility] [address] [place], [place] [address] MCHC (RBC) [Mass/Vol] 34.0 % Normal 32.0-36.0 [facility] Comment on above: Performed By: #### L MCBD #### [facility] [address] [place] [address] MCV (RBC) [Entitic vol] 82.0 fL Normal 81.0-99.0 [facility] Comment on above: Performed By: #### L MCBD #### [place] [address] Monocytes/100 WBC (Bld) 5.7 % Normal [facility] Comment on above: Performed By: #### L MCBD #### [facility] [address] [place] [address] Platelet mean volume (Bld) [Entitic vol] 10.2 fL Normal 7.1-10.5 [facility] Comment on above: Performed By: #### L MCBD #### [place] [address] Platelets (Bld) [#/Vol] 211 thou/cmm Normal 150-400 [facility] Comment on above: Performed By: #### L MCBD #### [address] [address] RBC (Bld) [#/Vol] 5.89 mil/cmm High 4.20-5.40 [facility] Comment on above: Performed By: #### L MCBD #### [facility] [address] [place] [address] Seg Neutrophil 69.6 % Normal [facility] Comment on above: Performed By: #### L MCBD #### [place] [address] WBC (Bld) [#/Vol] 7.6 thou/cmm Normal 4.8-10.8 [facility] Comment on above: Performed By: #### L MCBD #### [facility] [address] [place] [address] Ketoneson 09-06-2018 Ketones Ql (U) Negative Normal Negative [facility] Comment on above: Performed By: #### L MCBD #### [place] [address] Lipase Bloodon 09-06-2018 Lipase Blood 112 U/L Normal 73-393 [facility] Comment on above: Performed By: #### L LIP #### [place] [address] MDRD eGFRon 09-06-2018 GFR/1.73 sq M predicted among non-blacks MDRD (S/P/Bld) [Vol rate/Area] mL/min/{1.73_m2} Normal >60mL/min/ 1.73m2 [facility] Comment on above: Result Comment: If t he patient is , multiply the result by 1.210. Performed By: #### L LIP #### [place] [address] Macroscopic Urinalysison Appearance (U) CLEAR Normal [facility] Comment on above: Performed By: #### L LIP #### [place] [address] Bilirubin Urine Negative Normal Negative [facility] Comment on above: Performed By: #### L LIP #### [place] [address] Color (U) YELLOW Normal [facility] Comment on above: Performed By: #### L LIP #### [place] [address] Glucose Ql (U) 2+ Abnormal Negative [facility] Comment on above: Performed By: #### L LIP #### [place] [address] Hemoglobin,Urine Negative Normal Negative [facility] Comment on above: Performed By: #### L LIP #### [facility] [address] [place] [address] Ketone Urine Negative Normal Negative [facility] Comment on above: Performed By: #### L LIP #### [facility] [address] [place] [address] Leukocytes Esterase Negative Normal Negative [facility] Comment on above: Performed By: #### L LIP #### [facility] [address] [place] [address] Nitrites Urine Negative Normal Negative [facility] Comment on above: Performed By: #### L LIP #### [facility] [address] [place] [address] pH (U) 7.0 [pH] Normal 5.0-8.0 [facility] Comment on above: Performed By: #### L LIP #### [facility] [address] [place] [address] Protein (U) [Mass/Vol] Negative Normal Negative [facility] Comment on above: Performed By: #### L LIP #### [facility] [address] [place] [address] Specific [place], Ur 1.020 Normal 1.005-1 .03 0 [facility] Comment on above: Performed By: #### L LIP #### [facility] [address] [place] [address] Urobilinogen,Ur 0.2 EU/dL Normal 0.0-1.0 [facility] Comment on above: Performed By: #### L LIP #### [place] [address] Basic Panelon 08-16-2018 Anion gap [Moles/Vol] 16 mmol/L Normal 8-20 [facility] Comment on above: Performed By: #### L MCBD #### [place] [address] Chloride [Moles/Vol] 99 mmol/L Normal 98-[address] [facility] Comment on above: Result Comment: Test ing performed on an [employer] i-STAT. Performed By: #### L MCBD #### [place] [address] Potassium [Moles/Vol] 3.9 mmol/L Normal 3.5-4.9 [facility] Comment on above: Result Comment: Test ing performed on an Palacio i-STAT. Performed By: #### L MCBD #### [facility] [address] [place], [place] [address] Sodium [Moles/Vol] 137 mmol/L Low 138-146 [facility] Comment on above: Result Comment: Test ing performed on an [employer] i-STAT. Performed By: #### L MCBD #### [facility] [address] [place], [place] [address] Calcium [Mass/Vol] 9.3 mg/dL Normal 8.5-10.1 [facility] Comment on above: Performed By: #### L MCBD #### [address] [address] CO2 Blood 26 mEq/L Normal 21-32 [facility] Comment on above: Performed By: #### L MCBD #### [address] [address] Creatinine [Mass/Vol] 0.57 mg/dL Normal 0.51-0.95 [facility] Comment on above: Performed By: #### L MCBD #### [address] [address] Glucose [Mass/Vol] 336 mg/dL High 70-99 [facility] Comment on above: Performed By: #### L MCBD #### [address] [address] Urea nitrogen [Mass/Vol] 7 mg/dL Normal 7-25 [facility] Comment on above: Performed By: #### L MCBD #### [address] [address] Urea nitrogen/Creatinine [Mass ratio] 12 mg/mg Normal 10-20 [facility] Comment on above: Performed By: #### L MCBD #### [address] [address] Hemogram/Diffon 08-16-2018 Abs. Baso 0.08 thou/cmm Normal 0.00-0.08 [facility] Comment on above: Performed By: #### L MCBD #### [facility] [address] [place], [place] [address] Abs. Brule 0.61 thou/cmm Normal 0.20-1.00 [facility] Comment on above: Performed By: #### L MCBD #### [facility] [address] [place] [address] Abs. Neut (ANC) 8.11 thou/cmm High 3.00-5.67 [facility] Comment on above: Performed By: #### L MCBD #### [place] [address] Basophils/100 WBC (Bld) 0.7 % Normal [facility] Comment on above: Performed By: #### L MCBD #### [place] [address] Eosinophils (Bld) [#/Vol] 0.07 thou/cmm Normal 0.00-0.41 [facility] Comment on above: Performed By: #### L MCBD #### [place] [address] Eosinophils/100 WBC (Bld) 0.6 % Normal [facility] Comment on above: Performed By: #### L MCBD #### [facility] [address] [place] [address] Erythrocyte distribution width (RBC) [Ratio] 12.9 % Normal 11.5-15.9 [facility] Comment on above: Performed By: #### L MCBD #### [facility] [address] [place] [address] Hematocrit (Bld) [Volume fraction] 46.9 % Normal 37.0-47.0 [facility] Comment on above: Performed By: #### L MCBD #### [facility] [address] [place] [address] Hemoglobin (Bld) [Mass/Vol] 16.3 g/dL High 12.0-16.0 [facility] Comment on above: Performed By: #### L MCBD #### [facility] [address] [place], [place] [address] Lymphocytes (Bld) [#/Vol] 2.63 thou/cmm Normal 1.50-3.65 [facility] Comment on above: Performed By: #### L MCBD #### [facility] [address] [place], [place] [address] Lymphocytes/100 WBC (Bld) 22.9 % Normal [facility] Comment on above: Performed By: #### L MCBD #### [facility] [address] [place], [place] [address] MCH (RBC) [Entitic mass] 28.0 pg Normal 27.0-31.0 [facility] Comment on above: Performed By: #### L MCBD #### [facility] [address] [place], [place] [address] MCHC (RBC) [Mass/Vol] 34.8 % Normal 32.0-36.0 [facility] Comment on above: Performed By: #### L MCBD #### [facility] [address] [place], [place] [address] MCV (RBC) [Entitic vol] 80.4 fL Low 81.0-99.0 [facility] Comment on above: Performed By: #### L MCBD #### [facility] [address] [place], [place] [address] Monocytes/100 WBC (Bld) 5.3 % Normal [facility] Comment on above: Performed By: #### L MCBD #### [facility] [address] [place], [place] [address] Platelet mean volume (Bld) [Entitic vol] 10.1 fL Normal 7.1-10.5 [facility] Comment on above: Performed By: #### L MCBD #### [facility] [address] [place], [place] [address] Platelets (Bld) [#/Vol] 257 thou/cmm Normal 150-400 [facility] Comment on above: Performed By: #### L MCBD #### [facility] [address] [place], [place] [address] RBC (Bld) [#/Vol] 5.83 mil/cmm High 4.20-5.40 [facility] Comment on above: Performed By: #### L MCBD #### [facility] [address] [place] [address] Seg Neutrophil 70.5 % Normal [facility] Comment on above: Performed By: #### L MCBD #### [facility] [address] [place] [address] WBC (Bld) [#/Vol] 11.5 thou/cmm High 4.8-10.[address] [facility] Comment on above: Performed By: #### L MCBD #### [facility] [address] [place] [address] MDRD eGFRon 08-16-2018 GFR/1.73 sq M predicted among non-blacks MDRD (S/P/Bld) [Vol rate/Area] mL/min/{1.73_m2} Normal >60mL/min/ 1.73m2 [facility] Comment on above: Result Comment: If t he patient is , multiply the result by 1.210. Performed By: #### L MCBD #### [facility] [address] [place] [address] Basic Panelon 07-31-2018 Anion gap [Moles/Vol] 17 mmol/L Normal 8-20 [facility] Comment on above: Performed By: #### L MCBD #### [facility] [address] [place] [address] Chloride [Moles/Vol] 97 mmol/L Low 98-[address] [facility] Comment on above: Result Comment: Test ing performed on an Palacio i-STAT. Performed By: #### L MCBD #### [facility] [address] [place] [address] Potassium [Moles/Vol] 4.4 mmol/L Normal 3.5-4.9 [facility] Comment on above: Result Comment: Test ing performed on an Palacio i-STAT. Performed By: #### L MCBD #### [facility] [address] [place] [address] Sodium [Moles/Vol] 134 mmol/L Low 138-146 [facility] Comment on above: Result Comment: Test ing performed on an [employer] i-STAT. Performed By: #### L MCBD #### [facility] [address] [place], [place] [address] Calcium [Mass/Vol] 9.2 mg/dL Normal 8.5-10.1 [facility] Comment on above: Performed By: #### L MCBD #### [facility] [address] [place], [place] [address] CO2 Blood 24 mEq/L Normal 21-32 [facility] Comment on above: Performed By: #### L MCBD #### [address] [address] Creatinine [Mass/Vol] 0.52 mg/dL Normal 0.51-0.95 [facility] Comment on above: Performed By: #### L MCBD #### [address] [address] Glucose [Mass/Vol] 444 mg/dL Critically high 70-99 [facility] Comment on above: Performed By: #### L MCBD #### [address] [address] Urea nitrogen [Mass/Vol] 7 mg/dL Normal 7-25 [facility] Comment on above: Performed By: #### L MCBD #### [address] [address] Urea nitrogen/Creatinine [Mass ratio] 14 mg/mg Normal 10-20 [facility] Comment on above: Performed By: #### L MCBD #### [facility] [address] [place], [place] [address] Hemogram/Diffon 07-31-2018 Abs. Baso 0.05 thou/cmm Normal 0.00-0.08 [facility] Comment on above: Performed By: #### L SHCG #### [address] [address] Abs. Brule 0.63 thou/cmm Normal 0.20-1.00 [facility] Comment on above: Performed By: #### L SHCG #### [facility] [address] [place], [place] [address] Abs. Neut (ANC) 8.64 thou/cmm High 3.00-5.67 [facility] Comment on above: Performed By: #### L SHCG #### [facility] [address] [place], [place] [address] Basophils/100 WBC (Bld) 0.4 % Normal [facility] Comment on above: Performed By: #### L SHCG #### [facility] [address] [place], [place] [address] Eosinophils (Bld) [#/Vol] 0.16 thou/cmm Normal 0.00-0.41 [facility] Comment on above: Performed By: #### L SHCG #### [facility] [address] [place], [place] [address] Eosinophils/100 WBC (Bld) 1.4 % Normal [facility] Comment on above: Performed By: #### L SHCG #### [place] [address] Erythrocyte distribution width (RBC) [Ratio] 13.4 % Normal 11.5-15.9 [facility] Comment on above: Performed By: #### L SHCG #### [address] [address] Hematocrit (Bld) [Volume fraction] 49.1 % High 37.0-47.0 [facility] Comment on above: Performed By: #### L SHCG #### [facility] [address] [place], [place] [address] Hemoglobin (Bld) [Mass/Vol] 17.0 g/dL High 12.0-16.0 [facility] Comment on above: Performed By: #### L SHCG #### [facility] [address] [place], [place] [address] Lymphocytes (Bld) [#/Vol] 2.12 thou/cmm Normal 1.50-3.65 [facility] Comment on above: Performed By: #### L SHCG #### [facility] [address] [place], [place] [address] Lymphocytes/100 WBC (Bld) 18.3 % Normal [facility] Comment on above: Performed By: #### L SHCG #### [facility] [address] [place], [place] [address] MCH (RBC) [Entitic mass] 27.8 pg Normal 27.0-31.0 [facility] Comment on above: Performed By: #### L SHCG #### [facility] [address] [place], [place] [address] MCHC (RBC) [Mass/Vol] 34.6 % Normal 32.0-36.0 [facility] Comment on above: Performed By: #### L SHCG #### [address] [address] MCV (RBC) [Entitic vol] 80.4 fL Low 81.0-99.0 [facility] Comment on above: Performed By: #### L SHCG #### [address] [address] Monocytes/100 WBC (Bld) 5.4 % Normal [facility] Comment on above: Performed By: #### L SHCG #### [address] [address] Platelet mean volume (Bld) [Entitic vol] 10.2 fL Normal 7.1-10.5 [facility] Comment on above: Performed By: #### L SHCG #### [address] [address] Platelets (Bld) [#/Vol] 209 thou/cmm Normal 150-400 [facility] Comment on above: Performed By: #### L SHCG #### [facility] [address] [place], [place] [address] RBC (Bld) [#/Vol] 6.11 mil/cmm High 4.20-5.40 [facility] Comment on above: Performed By: #### L SHCG #### [address] [address] Seg Neutrophil 74.5 % Normal [facility] Comment on above: Performed By: #### L SHCG #### [facility] [address] [place] [address] WBC (Bld) [#/Vol] 11.6 thou/cmm High 4.8-10.[address] [facility] Comment on above: Performed By: #### L SHCG #### [facility] [address] [place] [address] MDRD eGFRon 07-31-2018 GFR/1.73 sq M predicted among non-blacks MDRD (S/P/Bld) [Vol rate/Area] mL/min/{1.73_m2} Normal >60mL/min/ 1.73m2 [facility] Comment on above: Result Comment: If t he patient is , multiply the result by 1.210. Performed By: #### L MCBD #### [place] [address] Rapid Influenza A/Bon 2018 Rapid Influenza A/B See below Normal Negative [facility] Comment on above: Result Comment: Nega tive for influenza A and B. Performed By: #### L MCBD #### [facility] [address] [place] [address] Urinalysis Routineon 019 Appearance (U) CLEAR Normal [facility] Comment on above: Performed By: #### L MCBD #### [place] [address] Bilirubin Urine Negative Normal Negative [facility] Comment on above: Performed By: #### L MCBD #### [facility] [address] [place] [address] Color (U) YELLOW Normal [facility] Comment on above: Performed By: #### L MCBD #### [facility] [address] [place] [address] Ep Cells Urine 2-5 Normal 0-5 [facility] Comment on above: Performed By: #### L MCBD #### [facility] [address] [place] [address] Glucose Ql (U) 2+ Abnormal Negative [facility] Comment on above: Performed By: #### L MCBD #### [facility] [address] [place] [address] Hemoglobin,Urine Negative Normal Negative [facility] Comment on above: Performed By: #### L MCBD #### [facility] [address] [place] [address] Ketone Urine Negative Normal Negative [facility] Comment on above: Performed By: #### L MCBD #### [facility] [address] [place] [address] Leukocytes Esterase Negative Normal Negative [facility] Comment on above: Performed By: #### L MCBD #### [facility] [address] [place] [address] Nitrites Urine Negative Normal Negative [facility] Comment on above: Performed By: #### L MCBD #### [facility] [address] [place] [address] pH (U) 6.0 [pH] Normal 5.0-8.0 [facility] Comment on above: Performed By: #### L MCBD #### [place] [address] Protein (U) [Mass/Vol] TRACE Abnormal Negative [facility] Comment on above: Performed By: #### L MCBD #### [place] [address] RBC LM.HPF (Urine sed) [#/Area] 0-3 Normal 0-3 [facility] Comment on above: Performed By: #### L MCBD #### [place] [address] Specific [place], Ur 1.015 Normal 1.005-1 .03 0 [facility] Comment on above: Performed By: #### L MCBD #### [place] [address] Urobilinogen,Ur 0.2 EU/dL Normal 0.0-1.0 [facility] Comment on above: Performed By: #### L MCBD #### [place] [address] WBC LM.HPF (Urine sed) [#/Area] 0-2 Normal 0-5 [facility] Comment on above: Performed By: #### L MCBD #### [place] [address] CASE MANAGEMon 07-21-2018 CASE MANAGEM HNO ID: [id number] Author: Jameson Sanders (Lisw) Service: (none) Author Type: Curriculum Counselor Type: Care Mgt Progress Note Filed: 07/21/2018 [...] CONTACT RESOURCES: NARCISA provided financial resources for [facility]. The pt plans to follow up with [facility] for anxiety and depression. [facility] and they will contact the pt tomorrow. SIGNATURE: NARCISA [facility] PATIENT NAME: Trenton Jackson DATE: July 21, 2018 TIME: 1:10 PM PAGER/CONTACT #: [phone] [facility] CASE MGT INIT [facility] 2018 CASE MGT INIT [facility] HNO ID: [id number] Author: Jameson Sanders (Lisw) Service: (none) Author Type: Curriculum Counselor Type: Care Mgt Initial Assessment Filed: 07/21/2018 1:09 PM Note Text: CARE MANAGEMENT: ASSESSMENT AND DISCHARGE PLAN SERVICE DATE: 07/21/2018 SERVICE TIME: 12:00 PM PRIMARY CARE PHYSICIAN: Uziel Conteh MD - Pt confirmed and is agreeable to [facility] scheduling a f/u apt. NARCISA sent a task. 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 No SOCIAL: Living Arrangement: Home Lives With: Spouse and children Financial Resources: Unemployed Primary Contact: Extended Emergency Contact Information Primary Emergency Contact: Curry Jackson Jr Address: [address] [place] [address] [facility] Mobile Relation: Spouse Secondary Emergency Contact: Rebecca Dueñas Address: [place], [place] [id number] [place] [address] Relation: Mother Supportive: Yes Other Important Patient [...] 0 I feel financially burdened by my [id number] expenses for my prescription medication: Disagree completely [...] Home Psych Facility/Counseling [facility] NARCISA met with the pt at bedside [...] did provide a list of resources for [employer]. The pt has been active with [facility] in the past for anxiety and depression and plans to make another appointment as she has been struggling again. SIGNATURE: NARCISA [facility] [facility] PATIENT NAME: Trenton Jackson DATE: July 21, 2018 TIME: 1:00 PM PAGER/CONTACT #: [phone] [facility] 07-21-2018 [facility] Letter Text July 21, 2018 Trenton Jackson [address] [facility] [address] [facility] [address] Dear Ms. Jackson, The nurses and staff of [facility] hope this letter finds you feeling well [...] free to contact me, Bety Alcaraz RN ([phone]) or email me at, [email or web address] Additionally, you will receive a survey [...] participation and thank you for choosing the [facility] for your health needs. Sincerely, Nurse Wire Products Inspector: Bety Alcaraz RN ([phone]) [facility] Unit: 3 Observation Letter Text July 22, 2018 Department of Hospital Medicine [address] [place] [address] Re: Trenton [address] Dear Dr. Conteh: A patient of your practice, Trenton Jackson (: 1970) was treated at [facility] under the care of the [facility] Department of Hospital Medicine, and discharged on 07/21/2018. A transcribed discharge summary should be forthcoming promptly. If you need additional information or assistance, you may contact the Department of Hospital Medicine at [phone] during regular business hours, and we?ll be happy to assist you. Best Regards, Juancarlos Ann Normal [facility] HNO ID: [id number] Author: Magda Miller Corrections Identification Technician Service: Hospital Medicine Author Type: Nurse Practitioner Type: Discharge Summaries Filed: 07/21/2018 11:41 AM Note Text: ----- Attestation signed by Lei Roman at 07/21/2018 12:09 PM [facility] STAFF PHYSICIAN NOTE OF PERSONAL INVOLVEMENT IN CARE I have reviewed the documentation obtained and documented by the team healthcare provider (medical student, fellow, resident, nurse practitioner or physician casino assistant manager) and I personally participated in the jones components. I have discussed the case and management of the patient's care. Lei Roman MD Hospital Medicine Staff PAGER: [phone] DATE of Service: 07/21/2018 TIME of Service: [...] provider in one week and with primary press box custodian as scheduled. We discussed increasing dose of [...] mild, abuse Frailty Coronary artery disease involving united [place] coronary artery of united [place] heart without angina pectoris Resolved Problems: * [...] to call for appointment?: Yes Uziel Conteh [phone] [address] [facility] [address] PCP Requested Referral Additional Provider to Provider [...] called for EMS to take her to [place] ED around 7 am. Patient was recommended to go to a hospital with PCI capacity but the patient declined and said [facility] only. Initial work up in the [...] disorder, with long-term current use of insulin ([facility]) 12/06/2017 - Present Primary hypertension 12/06/2017 - Present Dyslipidemia 11/30/2017 - Present Smoker 12/02/2017 - Present Frailty 07/20/2018 - Present Coronary artery disease involving united [place] coronary artery of united [place] heart without angina pectoris 07/21/2018 - Present Chronic systolic heart failure ([facility]) 06/08/2018 - Present Chest pain at rest 11/30/2017 - Present Cardiomyopathy ([facility]) 12/02/2017 - Present Cannabis use disorder, mild, abuse 07/20/2018 - Present Anxiety 02/20/2017 - Present Resolved Hospital Problems as of 07/21/2018 None Transitions of Care Critical Issues: SPECIALIST FOLLOW-UP: PCP in 1 week, Cardiology as scheduled LABS AND PROCEDURES PENDING AT DISCHARGE: No pending results. FOLLOW-UP APPOINTMENTS ALREADY SCHEDULED WITH A [facility] PROVIDER: No future appointments. ALLERGIES Allergen Reactions [...] minutes SIGNATURE: Magda Truong APRN.CNP PAGER/CONTACT #: [phone] DATE: July 21, 2018 TIME: 11:38 AM [facility] CONSULTon 07-21-2018 CONSULT HNO ID: [id number] Author: Torito Foley Service: Cardiovascular Disease Author [...] including tobacco use. The patient presented to [place] emergency room with a complaint of a [...] appointments with prior cardiologists. Torito Foley MD, [facility] Obie Richards Department of Cardiovascular Medicine Heart and Vascular [facility]/ [address], [address] [place] [address] Tel. [phone] SIGNATURE: Torito Foley MD PATIENT NAME: Trenton Jackson DATE: July 21, 2018 TIME: 8:51 AM PAGER/CONTACT #: [phone] [facility] Lipaseon 07-21-2018 Lipase enzyme act/vol 21 U/L Normal 16-61 [facility] Comment on above: Performed By: #### L IPA ####[facility] [address] [place] [phone] NURSING PROGon 07-21-2018 Protein mass conc HNO ID: [id number] Author: Dayanara AgudeloRn) CHAYITO Alexander Service: (none) Author Type: Registered Nurse Type: Nursing Progress Note Filed: 07/21/2018 1:30 PM Note Text: Nursing Progress Note Patient Name: Trenton Jackson Patient Location: [place] [address] [address] Daily Note: 0745 RN assumed care of [...] note was completed by: Dayanara Alexander RN [facility] Protein mass conc HNO ID: [id number] Author: Katrina AgudeloRn) CHAYITO Patirck Service: (none) Author Type: Registered Nurse Type: Nursing Progress Note Filed: 07/21/2018 6:50 AM Note Text: Nursing Progress Note Patient Name: Trenton Jackson Patient Location: [id number] Daily Note: 1940: patient observed in bed [...] note was completed by: Katrina Patrick RN [facility] PROGRESSon 07-21-2018 Protein mass conc HNO ID: [id number] Author: Ghassan Logan Service: General Internal Medicine [...] Logan MD July 21, 2018 6:51 AM [facility] Troponin Ton 07-21-2018 Troponin T.cardiac mass conc ug/L Normal 0.000-0.[address] [place] [address] Comment on above: Performed By: #### T NT ####[facility] [address] [place] [phone] Basic Panelon 07-20-2018 Anion gap [Moles/Vol] 17 mmol/L Normal 8-20 [facility] Comment on above: Performed By: #### L SHCG #### [place] [address] Chloride [Moles/Vol] 95 mmol/L Low 98-[address] [facility] Comment on above: Result Comment: Test ing performed on an [employer] i-STAT. Performed By: #### L SHCG #### [address] [address] Sodium [Moles/Vol] 135 mmol/L Low 138-146 [facility] Comment on above: Result Comment: Test ing performed on an [place] i-STAT. Performed By: #### L SHCG #### [address] [address] Calcium [Mass/Vol] 9.4 mg/dL Normal 8.5-10.1 [facility] Comment on above: Performed By: #### L SHCG #### [facility] [address] [place], [place] [address] CO2 Blood 27 mEq/L Normal 21-32 [facility] Comment on above: Performed By: #### L SHCG #### [facility] [address] [place], [place] [address] Creatinine [Mass/Vol] 0.54 mg/dL Normal 0.51-0.95 [facility] Comment on above: Performed By: #### L SHCG #### [facility] [address] [place], [place] [address] Glucose [Mass/Vol] 400 mg/dL High 70-99 [facility] Comment on above: Performed By: #### L SHCG #### [facility] [address] [place] [address] Urea nitrogen [Mass/Vol] 5 mg/dL Low 7-25 [facility] Comment on above: Performed By: #### L SHCG #### [facility] [address] [place] [address] Urea nitrogen/Creatinine [Mass ratio] 9 mg/mg Low 10-20 [facility] Comment on above: Performed By: #### L SHCG #### [facility] [address] [place] [address] CBCon 07-20-2018 Erythrocyte distribution width Ratio (RBC) 13.3 % Normal 11.5-15.0 [facility] Comment on above: Performed By: #### C BC ####[facility] [address] [place] [address] Hematocrit Volume Fraction (Bld) 48.4 % High 36.0-46.0 [facility] Comment on above: Performed By: #### C BC ####[facility] [address] [place] [address] Hemoglobin mass conc (Bld) 16.7 g/dL High 11.5-15.5 [facility] Comment on above: Performed By: #### C BC ####[facility] [address] [place] [address] MCH Entitic mass (RBC) 27.4 pG Normal 26.0-34.0 [facility] Comment on above: Performed By: #### C BC ####[facility] [address] [place] [address] MCHC mass conc (RBC) 34.5 g/dL Normal 30.5-36.0 [facility] Comment on above: Performed By: #### C BC ####[place] [address] MCV Entitic volume (RBC) 79.3 fL Low 80.0-100.0 [facility] Comment on above: Performed By: #### C BC ####[place] [address] Platelet mean volume Entitic volume (Bld) 10.1 fL Normal 9.0-12.7 [facility] Comment on above: Performed By: #### C BC ####[place] [address] Platelets #/vol (Bld) 242 10*3/uL Normal 150-400 [facility] Comment on above: Performed By: #### C BC ####[facility] [address] [place] [address] RBC #/vol (Bld) 6.10 10*6/uL High 3.90-5.20 [facility] Comment on above: Performed By: #### C BC ####[place] [address] WBC #/vol (Bld) 11.50 10*3/uL High 3.70-11.00 [facility] Comment on above: Performed By: #### C BC ####[place] [address] D-Dimer Quantitativeon 07-20 D-Dimer Quantitative 224 ng/mL(FEU) Normal <450 [facility] Comment on above: Result Comment: The D-Dimer [...] >=38.9%. Performed By: #### L SHC #### [facility] [address] [place] [address] ECG COMPLETEon 07-20-2018 ECG COMPLETE NAME : SUSI JACKSON PID : [id number] : 1970 Gender : Female Race : ORD : [id number] Procedure Date : Jul 20 2018 17:43:40 Edit Date : Jul 22 2018 11:17:53 Diagnosis:SINUS TACHYCARDIA LEFT AXIS DEVIATION SEPTAL INFARCT (CITED ON OR BEFORE 30-NOV-2017) ABNORMAL ECG WHEN COMPARED WITH ECG OF 14-DEC-2017 14:52, QUESTIONABLE CHANGE IN INITIAL FORCES OF ANTERIOR LEADS Confirmed by MD FAIRCHILD QARAB ([id number]) on 07/22/2018 11:17:50 AM Ventricular Rate : 122 BPM Atrial Rate : 122 BPM P-R Interval : 144 ms QRS Duration : 96 ms Q-T Interval : 336 ms QTC Calculation(Bezet) : 478 ms P [place] : 48 degrees R [place] : -61 degrees T [place] : 65 degrees Test Reason : Chest Pain Location : 15 : 3V 323.1 Overread By : MD FAIRCHILD QARAB Edited By : MD FAIRCHILD QARAB Referred By : ZOHREH HARRINGTON Acquired by : [id number], Normal [facility] Glucose Meteron 07-20-2018 Glucose [Mass/Vol] 330 mg/dL High 70-99 [facility] Comment on above: Result Comment: MD Mccracken OTIFIED [place] [address] Performed By: #### L SHCG #### [place] [address] HISTORY PHYSICALon 9 HISTORY PHYSICAL HNO ID: [id number] Author: Ghassan Logan Service: General Internal Medicine [...] patient directed ED to only come to [facility] despite counseling by day physicians that [...] h/o ischemic cardiomyopathy, LAD 80% stenosis on [facility] in December 2017, Cardiology at [facility] [place] did not intervene - cardiology did not [...] called for EMS to take her to [place] ED around 7 am. Patient htne was recommended to go to a hospital with PCI capacity but the patient declined and said [facility] only. Of note the patient has [...] 2017. PCP is Uziel Conteh MD in [place]. Patient lives in [place]. Review of the Systems: (positives in bold) [...] 5. The patient will be transferred to [facility] for assessment of myocardial viability and [...] July 20, 2018 Time: 4:18 PM [facility] Normal [facility] Hemoglobin A1con 07-20-2018 Hemoglobin A1c/Hemoglobin.total mass fraction (Bld) 275 mg/dL Normal [facility] Comment on above: Result Comment: eAG: (Estimated average glucose) is a calculated value from HgbA1c and is hardware supplies sales representative of the average blood glucose level in the last 2-3 month period. Performed By: #### H BA1C ####[facility] [place], [place] [phone] Hemoglobin A1c/Hemoglobin.total mass fraction (Bld) 11.2 % High 4.3-5.6 [facility] Comment on above: Result Comment: Amer ican Diabetes Association guidelines indicate that patients with HgbA1c in the range 5.7-6.4% are at increased risk for development of diabetes, and intervention by lifestyle modification may be beneficial. HgbA1c greater or equal to 6.5% is considered diagnostic of diabetes. Performed By: #### H BA1C ####[facility] [place], [place] [phone] Hemogram/Diffon 07-20-2018 Abs. Baso 0.06 thou/cmm Normal 0.00-0.08 [facility] Comment on above: Performed By: #### L SHCG #### [place] [address] Abs. Brule 0.45 thou/cmm Normal 0.20-1.00 [facility] Comment on above: Performed By: #### L SHCG #### [place] [address] Abs. Neut (ANC) 7.40 thou/cmm High 3.00-5.67 [facility] Comment on above: Performed By: #### L SHCG #### [facility] [address] [place], [place] [address] Basophils/100 WBC (Bld) 0.6 % Normal [facility] Comment on above: Performed By: #### L SHCG #### [facility] [address] [place], [place] [address] Eosinophils (Bld) [#/Vol] 0.06 thou/cmm Normal 0.00-0.41 [facility] Comment on above: Performed By: #### L SHCG #### [facility] [address] [place], [place] [address] Eosinophils/100 WBC (Bld) 0.6 % Normal [facility] Comment on above: Performed By: #### L SHCG #### [address] [address] Erythrocyte distribution width (RBC) [Ratio] 13.3 % Normal 11.5-15.9 [facility] Comment on above: Performed By: #### L SHCG #### [facility] [address] [place], [place] [address] Hematocrit (Bld) [Volume fraction] 49.9 % High 37.0-47.0 [facility] Comment on above: Performed By: #### L SHCG #### [facility] [address] [place], [place] [address] Hemoglobin (Bld) [Mass/Vol] 17.3 g/dL High 12.0-16.0 [facility] Comment on above: Performed By: #### L SHCG #### [facility] [address] [place], [place] [address] Lymphocytes (Bld) [#/Vol] 1.53 thou/cmm Normal 1.50-3.65 [facility] Comment on above: Performed By: #### L SHCG #### [facility] [address] [place], [place] [address] Lymphocytes/100 WBC (Bld) 16.1 % Normal [facility] Comment on above: Performed By: #### L SHCG #### [facility] [address] [place], [place] [address] MCH (RBC) [Entitic mass] 27.7 pg Normal 27.0-31.0 [facility] Comment on above: Performed By: #### L SHCG #### [facility] [address] [place], [place] [address] MCHC (RBC) [Mass/Vol] 34.7 % Normal 32.0-36.0 [facility] Comment on above: Performed By: #### L SHCG #### [facility] [address] [place] [address] MCV (RBC) [Entitic vol] 80.0 fL Low 81.0-99.0 [facility] Comment on above: Performed By: #### L SHCG #### [place] [address] Monocytes/100 WBC (Bld) 4.7 % Normal [facility] Comment on above: Performed By: #### L SHCG #### [facility] [address] [place] [address] Platelet mean volume (Bld) [Entitic vol] 9.9 fL Normal 7.1-10.5 [facility] Comment on above: Performed By: #### L SHCG #### [facility] [address] [place] [address] Platelets (Bld) [#/Vol] 209 thou/cmm Normal 150-400 [facility] Comment on above: Performed By: #### L SHCG #### [facility] [address] [place], [place] [address] RBC (Bld) [#/Vol] 6.24 mil/cmm High 4.20-5.40 [facility] Comment on above: Performed By: #### L SHCG #### [facility] [address] [place], [place] [address] Seg Neutrophil 78.0 % Normal [facility] Comment on above: Performed By: #### L SHCG #### [place] [id number] WBC (Bld) [#/Vol] 9.5 thou/cmm Normal 4.8-10.8 [facility] Comment on above: Performed By: #### L SHCG #### [facility] [address] [place] [id number] Ketoneson 07-20-2018 Ketones Ql (U) Negative Normal Negative [facility] Comment on above: Performed By: #### L SHCG #### [place] [address] MDRD eGFRon 07-20-2018 GFR/1.73 sq M predicted among non-blacks MDRD (S/P/Bld) [Vol rate/Area] mL/min/{1.73_m2} Normal >60mL/min/ 1.73m2 [facility] Comment on above: Result Comment: If t he patient is , multiply the result by 1.210. Performed By: #### L SHCG #### [place] [address] NURSING PROGon 07-20-2018 Protein mass conc HNO ID: [id number] Author: Dayanara (Rn) CHAYITO Alexander Service: (none) Author Type: Registered Nurse Type: Nursing Progress Note Filed: 07/20/2018 5:58 PM Note Text: Nursing Progress Note Patient Name: Trenton Jackson Patient Location: [place] [id number] Daily Note: 1550 Patient arrived to unit [...] was completed by: Dayanara Alexander RN Normal [facility] Renal Function Panelon 07-20 Albumin mass conc 3.7 g/dL Low 3.9-4.9 [facility] Comment on above: Performed By: #### R FP ####[facility] [address] [place] [address] Anion gap molar conc 8 mmol/L Low 9-18 [facility] Comment on above: Performed By: #### R FP ####[facility] [address] [place] [address] Calcium mass conc 8.7 mg/dL Normal 8.5-10.2 [facility] Comment on above: Performed By: #### R FP ####[facility] [address] [place] [address] Chloride molar conc 100 mmol/L Normal 97-105 [facility] Comment on above: Performed By: #### R FP ####[facility] [address] [place] [address] CO2 molar conc 25 mmol/L Normal 22-30 [facility] Comment on above: Performed By: #### R FP ####[facility] [address] [place] [address] Creatinine mass conc 0.50 mg/dL Low 0.58-0.96 [facility] Comment on above: Performed By: #### R FP ####[facility] [address] [place] [address] eGFR- Amer. >60 Normal [facility] Comment on above: Performed By: #### R FP ####[facility] [address] [place] [address] GFR/1.73 sq M predicted among non-blacks MDRD vol rate/area (S/P/Bld) mL/min/{1.73_m2} Normal [facility] Comment on above: Result Comment: eGFR (Estimated [...] actual GFR. Performed By: #### R FP ####[facility] [address] [place] [address] Glucose mass conc 247 mg/dL High 74-99 [facility] Comment on above: Result Comment: The [place] Diabetes Association (ADA) provides guidance for cutoff [...] Standards of Medical Care in Diabetes 2016, [place] Diabetes Association. Diabetes Care. 2016.39(Suppl 1). Performed By: #### R FP ####[facility] [address] [place] [address] Phosphate mass conc 2.9 mg/dL Normal 2.7-4.8 [facility] Comment on above: Performed By: #### R FP ####[facility] [address] [place] [address] Potassium molar conc 4.2 mmol/L Normal 3.5-4.9 [facility] Comment on above: Performed By: #### R FP ####[facility] [address] [place] [address] Result Comment: Test ing performed on an [employer] i-STAT. Performed By: #### L SHCG #### [place] [address] Sodium molar conc 133 mmol/L Low 136-144 [facility] Comment on above: Performed By: #### R FP ####[facility] [address] [place] [address] Urea nitrogen mass conc 5 mg/dL Low 7-21 M [facility] Comment on above: Performed By: #### R FP ####[facility] [address] [place] [address] Troponin Ion 02-16-2019 Troponin I.cardiac [Mass/Vol] ng/mL Normal <=0.07 [facility] Comment on above: Performed By: #### L SHCG #### [facility] [address] [place], [place] [address] Troponin Ton 07-20-2018 Troponin T.cardiac mass conc ug/L Normal 0.000-0.02 9 [facility] Comment on above: Performed By: #### T NT ####[facility] [address] [place] [phone] CT ABDOMEN AND PELVIS WITH C ONTRASTon 06-26-2018 CT ABDOMEN AND PELVIS WITH CONTRAST Performed at [facility] APPROVED BY: Nixon Cortez MD EXAM [...] Multiple chronic findings as detailed above. Normal [facility] Comprehensive Panelon 2018 Albumin [Mass/Vol] 3.9 g/dL Normal 3.4-5.0 [facility] Comment on above: Performed By: #### L ACET #### [place] [address] ALP [Catalytic activity/Vol] 118 U/L High 46-116 [facility] Comment on above: Performed By: #### L ACET #### [place] [address] ALT-SGPT Blood 18 U/L Normal 14-63 [facility] Comment on above: Performed By: #### L ACET #### [place] [address] Anion gap [Moles/Vol] 18 mmol/L Normal 8-20 [facility] Comment on above: Performed By: #### L ACET #### [place] [address] AST-SGOT Blood 19 U/L Normal 15-37 [facility] Comment on above: Performed By: #### L ACET #### [place] [address] Bilirubin Ql (U) 1.5 mg/dL High 0.2-1.0 [facility] Comment on above: Performed By: #### L ACET #### [facility] [address] [place], [place] [address] Calcium [Mass/Vol] 9.4 mg/dL Normal 8.5-10.1 [facility] Comment on above: Performed By: #### L ACET #### [facility] [address] [place], [place] [address] Chloride [Moles/Vol] 93 mmol/L Low 98-[address] [facility] Comment on above: Performed By: #### L ACET #### [facility] [address] [place], [place] [address] CO2 Blood 25 mEq/L Normal 21-32 [facility] Comment on above: Performed By: #### L ACET #### [facility] [address] [place], [place] [address] Creatinine [Mass/Vol] 0.64 mg/dL Normal 0.51-0.95 [facility] Comment on above: Performed By: #### L ACET #### [facility] [address] [place], [place] [address] Glucose [Mass/Vol] 443 mg/dL Critically high 70-99 [facility] Comment on above: Performed By: #### L ACET #### [facility] [address] [place], [place] [address] Potassium [Moles/Vol] 4.0 mmol/L Normal 3.5-5.1 [facility] Comment on above: Performed By: #### L ACET #### [address] [address] Protein [Mass/Vol] 8.0 g/dL Normal 6.4-8.2 [facility] Comment on above: Performed By: #### L ACET #### [facility] [address] [place], [place] [address] Sodium [Moles/Vol] 132 mmol/L Low 136-145 [facility] Comment on above: Performed By: #### L ACET #### [address] [address] Urea nitrogen [Mass/Vol] 8 mg/dL Normal 7-25 [facility] Comment on above: Performed By: #### L ACET #### [facility] [address] [place] [address] Urea nitrogen/Creatinine [Mass ratio] 13 mg/mg Normal 10-20 [facility] Comment on above: Performed By: #### L ACET #### [facility] [address] [place] [address] Hemogram/Manual Diffon 06-26 Abs. Baso 0.00 thou/cmm Normal 0.00-0.08 [facility] Comment on above: Performed By: #### L ACET #### [facility] [address] [place] [address] Abs. Eosin 0.00 thou/cmm Normal 0.00-0.41 [facility] Comment on above: Performed By: #### L ACET #### [facility] [address] [place] [address] Abs. Lymph 2.58 thou/cmm Normal 1.50-3.65 [facility] Comment on above: Performed By: #### L ACET #### [facility] [address] [place] [address] Abs. Brule 0.78 thou/cmm Normal 0.20-1.00 [facility] Comment on above: Performed By: #### L ACET #### [facility] [address] [place] [address] Abs. Neut (ANC) 7.84 thou/cmm High 3.00-5.67 [facility] Comment on above: Performed By: #### L ACET #### [facility] [address] [place] [address] Basophil 0.0 % Normal [facility] Comment on above: Performed By: #### L ACET #### [facility] [address] [place] [address] Eosinophil 0.0 % Normal [facility] Comment on above: Performed By: #### L ACET #### [place] [address] Lymphocyte 23.0 % Normal [facility] Comment on above: Performed By: #### L ACET #### [facility] [address] [place] [address] Monocyte 7.0 % Normal [facility] Comment on above: Performed By: #### L ACET #### [facility] [address] [place] [address] Platelets (Bld) [#/Vol] Normal Normal [facility] Comment on above: Performed By: #### L ACET #### [facility] [address] [place] [address] RBC morphology finding Nom (Bld) Normal Normal [facility] Comment on above: Performed By: #### L ACET #### [facility] [address] [place] [address] Seg Neutrophil 70.0 % Normal [facility] Comment on above: Performed By: #### L ACET #### [place] [address] Diff Type Manual Diff Normal [facility] Comment on above: Performed By: #### L ACET #### [place] [address] Erythrocyte distribution width (RBC) [Ratio] 13.1 % Normal 11.5-15.9 [facility] Comment on above: Performed By: #### L ACET #### [place] [address] Hematocrit (Bld) [Volume fraction] 49.0 % High 37.0-47.0 [facility] Comment on above: Performed By: #### L ACET #### [place] [address] Hemoglobin (Bld) [Mass/Vol] 16.9 g/dL High 12.0-16.0 [facility] Comment on above: Performed By: #### L ACET #### [place] [address] MCH (RBC) [Entitic mass] 27.6 pg Normal 27.0-31.0 [facility] Comment on above: Performed By: #### L ACET #### [place] [address] MCHC (RBC) [Mass/Vol] 34.5 % Normal 32.0-36.0 [facility] Comment on above: Performed By: #### L ACET #### [facility] [address] [place] [address] MCV (RBC) [Entitic vol] 79.9 fl Low 81.0-99.0 [facility] Comment on above: Performed By: #### L ACET #### [place] [address] Platelet mean volume (Bld) [Entitic vol] 9.9 fl Normal 7.1-10.5 [facility] Comment on above: Performed By: #### L ACET #### [place] [address] Platelets (Bld) [#/Vol] 276 thou/cmm Normal 150-400 [facility] Comment on above: Performed By: #### L ACET #### [place] [address] RBC (Bld) [#/Vol] 6.13 mil/cmm High 4.20-5.40 [facility] Comment on above: Performed By: #### L ACET #### [place] [address] WBC (Bld) [#/Vol] 11.2 thou/cmm High 4.8-10.[address] [facility] Comment on above: Performed By: #### L ACET #### [place] [address] Ketoneson 06-26-2018 Ketones Ql (U) Negative Normal Negative [facility] Comment on above: Performed By: #### L SHCG #### [place] [address] Lipase Bloodon 06-26-2018 Lipase Blood 161 U/L Normal 73-393 [facility] Comment on above: Performed By: #### L ACET #### [place] [address] MDRD eGFRon 06-26-2018 GFR/1.73 sq M predicted among non-blacks MDRD (S/P/Bld) [Vol rate/Area] mL/min/{1.73_m2} Normal >60mL/min/ 1.73m2 [facility] Comment on above: Result Comment: If t he patient is , multiply the result by 1.210. Performed By: #### L ACET #### [place] [address] Macroscopic Urinalysison Appearance (U) CLEAR Normal [facility] Comment on above: Performed By: #### L ACET #### [place] [address] Bilirubin Urine Negative Normal Negative [facility] Comment on above: Performed By: #### L ACET #### [place] [address] Color (U) YELLOW Normal [facility] Comment on above: Performed By: #### L ACET #### [place] [address] Glucose Ql (U) 3+ Abnormal Negative [facility] Comment on above: Performed By: #### L ACET #### [place] [address] Hemoglobin,Urine Negative Normal Negative [facility] Comment on above: Performed By: #### L ACET #### [place] [address] Ketone Urine Negative Normal Negative [facility] Comment on above: Performed By: #### L ACET #### [place] [address] Leukocytes Esterase Negative Normal Negative [facility] Comment on above: Performed By: #### L ACET #### [place] [address] Nitrites Urine Negative Normal Negative [facility] Comment on above: Performed By: #### L ACET #### [place] [address] pH (U) 6.0 [pH] Normal 5.0-8.0 [facility] Comment on above: Performed By: #### L ACET #### [place] [address] Protein (U) [Mass/Vol] Negative Normal Negative [facility] Comment on above: Performed By: #### L ACET #### [facility] [address] [address] Specific [place], Ur 1.015 Normal 1.005-1 .03 0 [facility] Comment on above: Performed By: #### L ACET #### [facility] [address] [address] Urobilinogen,Ur 0.2 EU/dL Normal 0.0-1.0 [facility] Comment on above: Performed By: #### L ACET #### [facility] [address] [address] CASE MANAGEMon 06-12-2018 CASE MANAGEM HNO ID: [id number] Author: Rey Markham (Sw) Service: Care Management Author Type: Curriculum Counselor Type: Care Mgt Progress Note Filed: 06/12/2018 [...] discharge planning needs arise. SIGNATURE: Rey Markham FINANCIAL ASSISTANCE ADVISOR, ENERGY DERIVATIVES TRADER, ESTEFANIA-KIKE PATIENT NAME: Trenton Jackson DATE: June 12, 2018 TIME: 3:21 PM PAGER/CONTACT #: Normal [facility] 06-12-2018 Erythrocyte distribution width Ratio (RBC) 13.1 % Normal 11.5-15.0 [facility] Comment on above: Performed By: #### C BC, CMP, MG1 ####[facility] [address] [place] [address] Hematocrit Volume Fraction (Bld) 39.0 % Normal 36.0-46.0 [facility] Comment on above: Performed By: #### C BC, CMP, MG1 ####[facility] [address] [place] [address] Hemoglobin mass conc (Bld) 13.0 g/dL Normal 11.5-15.5 [facility] Comment on above: Performed By: #### C BC, CMP, MG1 ####[facility] [address] [place] [address] MCH Entitic mass (RBC) 27.5 pG Normal 26.0-34.0 [facility] Comment on above: Performed By: #### C BC, CMP, MG1 ####[facility] Ub[address] [place] [address] MCHC mass conc (RBC) 33.3 g/dL Normal 30.5-36.0 [facility] Comment on above: Performed By: #### C BC, CMP, MG1 ####[facility] [address] [place] [address] MCV Entitic volume (RBC) 82.5 fL Normal 80.0-100.0 [facility] Comment on above: Performed By: #### C BC, CMP, MG1 ####[facility] [address] [place] [address] Platelet mean volume Entitic volume (Bld) 9.6 fL Normal 9.0-12.7 [facility] Comment on above: Performed By: #### C BC, CMP, MG1 ####[facility] [address] [place] [address] Platelets #/vol (Bld) 202 10*3/uL Normal 150-400 [facility] Comment on above: Performed By: #### C BC, CMP, MG1 ####[facility] [address] [place] [address] RBC #/vol (Bld) 4.73 10*6/uL Normal 3.90-5.20 [facility] Comment on above: Performed By: #### C BC, CMP, MG1 ####[facility] Xvjk[address]yxru9777 [phone] WBC #/vol (Bld) 9.75 10*3/uL Normal 3.70-11.00 [facility] Comment on above: Performed By: #### C BC, CMP, MG1 ####[facility] Gooixyqdbl2387 [phone] CONSULT PROGon 06-12-2018 Protein mass conc HNO ID: [id number] Author: Jasvir Kumar Service: Gastroenterology Author Type: [...] ~6 weeks. Discussed importance of follow-up with braze operator in network with her insurance. Patient seen [...] 80 93 76 TBILI 0.5 0.8 0.6 [facility]: Component Latest Ref Rng AND Units [...] colon Bx: unavailable ? SIGNATURE: Prudence Edwards, PARTS MANAGER DATE: June 12, 2018 TIME: 10:40 AM Normal [facility] Comp Metabolic Panelon 06-12 Albumin mass conc 3.0 g/dL Low 3.9-4.9 [facility] Comment on above: Performed By: #### C BC, CMP, MG1 ####[facility] [address] [place] [phone] ALP enzyme act/vol 80 U/L Normal 34-123 [facility] Comment on above: Performed By: #### C BC, CMP, MG1 ####[facility] [address] [place] [address] ALT enzyme act/vol 17 U/L Normal 7-38 [facility] Comment on above: Performed By: #### C BC, CMP, MG1 ####[facility] [address] [place] [address] Anion gap molar conc 8 mmol/L Low 9-18 [facility] Comment on above: Performed By: #### C BC, CMP, MG1 ####[facility] [address] [place] [address] AST enzyme act/vol 25 U/L Normal 13-35 [facility] Comment on above: Performed By: #### C BC, CMP, MG1 ####[facility] [address] [place] [address] Bilirubin mass conc 0.5 mg/dL Normal 0.2-1.3 [facility] Comment on above: Performed By: #### C BC, CMP, MG1 ####[facility] [address] [place] [address] Calcium mass conc 9.0 mg/dL Normal 8.5-10.2 [facility] Comment on above: Performed By: #### C BC, CMP, MG1 ####[facility] [address] [place] [address] Chloride molar conc 101 mmol/L Normal 97-105 [facility] Comment on above: Performed By: #### C BC, CMP, MG1 ####[facility] [address] [place] [address] CO2 molar conc 28 mmol/L Normal 22-30 [facility] Comment on above: Performed By: #### C BC, CMP, MG1 ####[facility] [address] [place] [address] Creatinine mass conc 0.64 mg/dL Normal 0.58-0.96 [facility] Comment on above: Performed By: #### C BC, CMP, MG1 ####[facility] [address] [place] [address] eGFR- Amer. >60 Normal [facility] Comment on above: Performed By: #### C DELIA WILSON MG1 ####[facility] Udjdrvbljb2022 [address] GFR/1.73 sq M predicted among non-blacks MDRD vol rate/area (S/P/Bld) mL/min/{1.73_m2} Normal [facility] Comment on above: Result Comment: eGFR (Estimated [...] Performed By: #### C DELIA WILSON, MG1 ####[facility] [address] [place] [id number] Glucose mass conc 162 mg/dL High 74-99 [facility] Comment on above: Result Comment: The [place] [employer] (ADA) provides guidance for cutoff [...] Standards of Medical Care in Diabetes 2016, [place] [employer]. Diabetes Care. 2016.39(Suppl 1). Performed By: #### C DELIA WILSON, MG1 ####[facility] [address] [place] [address] Potassium molar conc 4.2 mmol/L Normal 3.7-5.1 [facility] Comment on above: Performed By: #### C DELIA WILSON, MG1 ####[facility] [address] [place] [address] Protein mass conc 5.6 g/dL Low 6.3-8.0 [facility] Comment on above: Performed By: #### C BC, CMP, MG1 ####[facility] [address] [place] [address] Sodium molar conc 137 mmol/L Normal 136-144 [facility] Comment on above: Performed By: #### C BC, CMP, MG1 ####[facility] G[address]gd[address] [place] [address] Urea nitrogen mass conc 5 mg/dL Low 7-21 M [facility] Comment on above: Performed By: #### C BC, CMP, MG1 ####[facility] [address] [place] [address] Magnesiumon 06-12-2018 Magnesium mass conc 1.6 mg/dL Low 1.7-2.3 [facility] Comment on above: Performed By: #### C BC, CMP, MG1 ####[facility] [address] [place] [address] NURSING PROGon 06-12-2018 Protein mass conc HNO ID: [id number] Author: Bina (Rn) CHAYITO Montiel Service: (none) Author Type: Registered Nurse Type: Nursing Progress Note Filed: 06/12/2018 6:50 AM Note Text: Nursing Progress Note Patient Name: Trenton Jackson Patient Location: [id number] Daily Note: Paged the hospital list regarding patient's magnesium level this AM. This note was completed by: Bina Montiel RN [facility] CBCon 06-11-2018 Erythrocyte distribution width Ratio (RBC) 13.4 % Normal 11.5-15.0 [facility] Comment on above: Performed By: #### C BC, CMP, MG1 ####[facility] [address] [place] [address] Hematocrit Volume Fraction (Bld) 45.8 % Normal 36.0-46.0 [facility] Comment on above: Performed By: #### C BC, CMP, MG1 ####[facility] [address] [place] [address] Hemoglobin mass conc (Bld) 15.4 g/dL Normal 11.5-15.5 [facility] Comment on above: Performed By: #### C BC, CMP, MG1 ####[facility] Rx[address] [place] [address] MCH Entitic mass (RBC) 27.5 pG Normal 26.0-34.0 [facility] Comment on above: Performed By: #### C BC, CMP, MG1 ####[facility] [address] [place] [address] MCHC mass conc (RBC) 33.6 g/dL Normal 30.5-36.0 [facility] Comment on above: Performed By: #### C BC, CMP, MG1 ####[facility] [address] [place] [address] MCV Entitic volume (RBC) 81.8 fL Normal 80.0-100.0 [facility] Comment on above: Performed By: #### C BC, CMP, MG1 ####[facility] [address] [place] [address] Platelet mean volume Entitic volume (Bld) 10.0 fL Normal 9.0-12.7 [facility] Comment on above: Performed By: #### C BC, CMP, MG1 ####[facility] [address]dro[address] [place] [address] Platelets #/vol (Bld) 260 10*3/uL Normal 150-400 [facility] Comment on above: Performed By: #### C BC, CMP, MG1 ####[facility] [address] [place] [address] RBC #/vol (Bld) 5.60 10*6/uL High 3.90-5.20 [facility] Comment on above: Performed By: #### C BC, CMP, MG1 ####[facility] [address]35[address] [place] [address] WBC #/vol (Bld) 13.52 10*3/uL High 3.70-11.00 [facility] Comment on above: Performed By: #### C BC, CMP, MG1 ####[facility] [address] [place] [phone] CONSULT Josephn 06-11-2018 Protein mass conc HNO ID: [id number] Author: Jasvir Kumar Service: Gastroenterology Author Type: [...] descending colon Bx: unavailable SIGNATURE: Prudence Edwards, PARTS MANAGER DATE: June 11, 2018 TIME: 10:11 AM Normal [facility] Comp Metabolic Panelon 06-11 Albumin mass conc 3.4 g/dL Low 3.9-4.9 [facility] Comment on above: Performed By: #### C BC, CMP, MG1 ####[facility] [address] [place] [address] ALP enzyme act/vol 93 U/L Normal 34-123 [facility] Comment on above: Performed By: #### C BC, CMP, MG1 ####[facility] [address] [place] [address] ALT enzyme act/vol 18 U/L Normal 7-38 [facility] Comment on above: Performed By: #### C BC, CMP, MG1 ####[facility] [address] [place] [address] Anion gap molar conc 11 mmol/L Normal 9-18 [facility] Comment on above: Performed By: #### C BC, CMP, MG1 ####[facility] [address] [place] [address] AST enzyme act/vol 31 U/L Normal 13-35 [facility] Comment on above: Performed By: #### C BC, CMP, MG1 ####[facility] [address] [place] [address] Bilirubin mass conc 0.8 mg/dL Normal 0.2-1.3 [facility] Comment on above: Performed By: #### C BC, CMP, MG1 ####[facility] [address] [place] [address] Calcium mass conc 9.0 mg/dL Normal 8.5-10.2 [facility] Comment on above: Performed By: #### C BC, CMP, MG1 ####[facility] [address] [place] [address] Chloride molar conc 101 mmol/L Normal 97-105 [facility] Comment on above: Performed By: #### C BC, CMP, MG1 ####[facility] [address] [place] [address] CO2 molar conc 25 mmol/L Normal 22-30 [facility] Comment on above: Performed By: #### C BC, CMP, MG1 ####[facility] [address] [place] [phone] Creatinine mass conc 0.61 mg/dL Normal 0.58-0.96 [facility] Comment on above: Performed By: #### C DELIA WILSON, MG1 ####[facility] Lputxcxkvw0440 [address]5[address] eGFR- Amer. >60 Normal [facility] Comment on above: Performed By: #### C DELIA WILSON, MG1 ####[facility] [address]48[address] [place] [phone] GFR/1.73 sq M predicted among non-blacks MDRD vol rate/area (S/P/Bld) mL/min/{1.73_m2} Normal [facility] Comment on above: Result Comment: eGFR (Estimated [...] Performed By: #### C DELIA WILSON, MG1 ####[facility] [address] [place] [phone] Glucose mass conc 123 mg/dL High 74-99 [facility] Comment on above: Result Comment: The [place] Diabetes [employer] (ADA) provides guidance for cutoff [...] Standards of Medical Care in Diabetes 2016, [place] [employer]. Diabetes Care. 2016.39(Suppl 1). Performed By: #### C BC, CMP, MG1 ####[facility] [address]tzv[address] [place] [address] Potassium molar conc 3.9 mmol/L Normal 3.7-5.1 [facility] Comment on above: Performed By: #### C BC, CMP, MG1 ####[facility] E[address]evosip[address] [place] [address] Protein mass conc 6.5 g/dL Normal 6.3-8.0 [facility] Comment on above: Performed By: #### C BC, CMP, MG1 ####[facility] [address] [place] [address] Sodium molar conc 137 mmol/L Normal 136-144 [facility] Comment on above: Performed By: #### C BC, CMP, MG1 ####[facility] [address] [place] [address] Urea nitrogen mass conc 5 mg/dL Low 7-21 M [facility] Comment on above: Performed By: #### C BC, CMP, MG1 ####[facility] X[address] [place] [address] Magnesiumon 06-11-2018 Magnesium mass conc 1.8 mg/dL Normal 1.7-2.3 [facility] Comment on above: Performed By: #### C BC, CMP, MG1 ####[facility] [address] [place] [address] PROGRESSon 06-11-2018 Protein mass conc HNO ID: [id number] Author: Fredo Morrow Service: Hospital Medicine Author Type: Physician Type: Progress Notes Filed: 06/11/2018 1:58 PM Note Text: SERVICE DATE: 06/11/2018 SERVICE TIME: 1:58 PM HOSPITAL MEDICINE PROGRESS NOTE NIGHT AND WEEKEND COVERAGE: Nights: Please contact pager [phone]. HPI Patient is a 47 year old [...] hyperglycemia, with long-term current use of insulin ([facility]) 06/08/2018 - Present Current Assessment AND Plan Assessment: HBAIC 11.2 on 12/06/17 She takes 40 units of lantus bid and 2 units of novolog tid. Controlled with current IP regimen PLAN: Due to hyperglycemia will start long acting insulin But her PO intake is low due to N/V and hence will do 50% of her home dose Chronic systolic CHF (congestive heart failure) ([facility]) 06/08/2018 - Present Current Assessment AND Plan [...] 1615 vte non-pharmacologic prophylaxis - none indicated ([place]) 06/08/18 1615 activity - mobilize patient ([place]) VTE Prophylaxis: VTE prophylaxis appropriate Plan of care discussed with: Patient SIGNATURE: Fredo Morrow MD PATIENT NAME: Trenton Jackson DATE: June 11, 2018 TIME: 1:58 PM PAGER/CONTACT #: [phone] Normal [facility] CBCon 06-10-2018 Erythrocyte distribution width Ratio (RBC) 13.1 % Normal 11.5-15.0 [facility] Comment on above: Performed By: #### C DELIA WILSON, MG1 ####[facility] [address] [place] [phone] Hematocrit Volume Fraction (Bld) 41.1 % Normal 36.0-46.0 [facility] Comment on above: Performed By: #### C DELIA WILSON, MG1 ####[facility] [address] [place] [phone] Hemoglobin mass conc (Bld) 13.4 g/dL Normal 11.5-15.5 [facility] Comment on above: Performed By: #### C DELIA WILSON, MG1 ####[facility] [address] [place] [phone] MCH Entitic mass (RBC) 26.9 pG Normal 26.0-34.0 [facility] Comment on above: Performed By: #### Gideon BC, CMP, MG1 ####[facility] [address]sp[address] [place] [address] MCHC mass conc (RBC) 32.6 g/dL Normal 30.5-36.0 [facility] Comment on above: Performed By: #### Gideon BC, CMP, MG1 ####[facility] [address]xmrjho4039 [place] [address] MCV Entitic volume (RBC) 82.4 fL Normal 80.0-100.0 [facility] Comment on above: Performed By: #### Gideon BC, CMP, MG1 ####[facility] [address] [place] [address] Platelet mean volume Entitic volume (Bld) 10.0 fL Normal 9.0-12.7 [facility] Comment on above: Performed By: #### Gideon BC, CMP, MG1 ####[facility] Tcdxiscqse0376 [place] [address] Platelets #/vol (Bld) 202 10*3/uL Normal 150-400 [facility] Comment on above: Performed By: #### Gideon BC, CMP, MG1 ####[facility] Jwtuzmwrit6473 [place] [address] RBC #/vol (Bld) 4.99 10*6/uL Normal 3.90-5.20 [facility] Comment on above: Performed By: #### Gideon BC, CMP, MG1 ####[facility] H[address]abpus8[address] [place] [address] WBC #/vol (Bld) 10.93 10*3/uL Normal 3.70-11.00 [facility] Comment on above: Performed By: #### Gideon BC, CMP, MG1 ####[facility] [address]rjouz[address] [place] [address] CONSULT PROGon 06-10-2018 Protein mass conc HNO ID: [id number] Author: Jasvir Kumar Service: Gastroenterology Author Type: [...] June 10, 2018 TIME: 12:53 PM Normal [facility] Comp Metabolic Panelon 06-10 Albumin mass conc 3.0 g/dL Low 3.9-4.9 [facility] Comment on above: Performed By: #### C BC, CMP, MG1 ####[facility] [address] [place] [phone] ALP enzyme act/vol 76 U/L Normal 34-123 [facility] Comment on above: Performed By: #### C BC, CMP, MG1 ####[facility] [address] [place] [address] ALT enzyme act/vol 11 U/L Normal 7-38 [facility] Comment on above: Performed By: #### C BC, CMP, MG1 ####[facility] W[address]ibmvy8[address] [place] [address] Anion gap molar conc 8 mmol/L Low 9-18 [facility] Comment on above: Performed By: #### C BC, CMP, MG1 ####[facility] [address] [place] [address] AST enzyme act/vol 16 U/L Normal 13-35 [facility] Comment on above: Performed By: #### C BC, CMP, MG1 ####[facility] [address] [place] [address] Bilirubin mass conc 0.6 mg/dL Normal 0.2-1.3 [facility] Comment on above: Performed By: #### C BC, CMP, MG1 ####[facility] [address] [place] [address] Calcium mass conc 8.8 mg/dL Normal 8.5-10.2 [facility] Comment on above: Performed By: #### C BC, CMP, MG1 ####[place] [address] Chloride molar conc 102 mmol/L Normal 97-105 [facility] Comment on above: Performed By: #### C BC, CMP, MG1 ####[facility] [address] [place] [address] CO2 molar conc 28 mmol/L Normal 22-30 [facility] Comment on above: Performed By: #### C BC, CMP, MG1 ####[facility] [address] [place] [address] Creatinine mass conc 0.62 mg/dL Normal 0.58-0.96 [facility] Comment on above: Performed By: #### C BC, CMP, MG1 ####[facility] [address] [place] [address] eGFR- Amer. >60 Normal [facility] Comment on above: Performed By: #### C DELIA WILSON MG1 ####[facility] Wocgpxmpck4033 [address] GFR/1.73 sq M predicted among non-blacks MDRD vol rate/area (S/P/Bld) mL/min/{1.73_m2} Normal [facility] Comment on above: Result Comment: eGFR (Estimated [...] Performed By: #### C DELIA WILSON, MG1 ####[facility] [address] [place] [id number] Glucose mass conc 142 mg/dL High 74-99 [facility] Comment on above: Result Comment: The [place] Diabetes Association (ADA) provides guidance for cutoff [...] Standards of Medical Care in Diabetes 2016, [place] [employer]. Diabetes Care. 2016.39(Suppl 1). Performed By: #### C DELIA WILSON, MG1 ####[facility] [address] [place] [address] Potassium molar conc 3.4 mmol/L Low 3.7-5.1 [facility] Comment on above: Performed By: #### C DELIA WILSON, MG1 ####[facility] [address] [place] [address] Protein mass conc 5.5 g/dL Low 6.3-8.0 [facility] Comment on above: Performed By: #### C BC, CMP, MG1 ####[facility] Sqmkndkyct1751 [address] Sodium molar conc 138 mmol/L Normal 136-144 [facility] Comment on above: Performed By: #### C BC, CMP, MG1 ####[facility] Dadhsysphb4266 [address] Urea nitrogen mass conc 6 mg/dL Low 7-21 M [facility] Comment on above: Performed By: #### C BC, CMP, MG1 ####[facility] Lzkyvbnlvv2231 [address] Magnesiumon 06-10-2018 Magnesium mass conc 1.8 mg/dL Normal 1.7-2.3 [facility] Comment on above: Performed By: #### C BC, CMP, MG1 ####[facility] Gyckzxfpyt4196 [address] PROGRESSon 06-10-2018 Protein mass conc HNO ID: [id number] Author: Fredo Morrow Service: Hospital Medicine Author Type: Physician Type: Progress Notes Filed: 06/10/2018 4:22 PM Note Text: SERVICE DATE: 06/10/2018 SERVICE TIME: 4:22 PM HOSPITAL MEDICINE PROGRESS NOTE NIGHT AND WEEKEND COVERAGE: Nights: Please contact pager [phone]. HPI Patient is a 47 year old [...] dose Chronic systolic CHF (congestive heart failure) ([facility]) 06/08/2018 - Present Current Assessment AND Plan [...] (fl,oh) 06/08/18 1615 activity - mobilize patient (ia,tn) VTE Prophylaxis: VTE prophylaxis appropriate Plan of care discussed with: Patient SIGNATURE: Fredo Morrow MD PATIENT NAME: Trenton Jackson DATE: June 10, 2018 TIME: 4:22 PM PAGER/CONTACT #: [phone] [facility] CASE MGT INIT [place] 2018 CASE MGT INIT [facility] HNO ID: [id number] Author: Donna AgudeloRn) CHAYITO Gupta Service: Case Management Author Type: Registered Nurse Type: Care Mgt Initial Assessment Filed: 06/09/2018 4:47 PM Note Text: CARE MANAGEMENT: ASSESSMENT AND DISCHARGE PLAN SERVICE DATE: 06/09/2018 SERVICE TIME: 4:45 PM PRIMARY CARE PHYSICIAN: Uziel Conteh MD - Confirmed with the patient ADMISSION STATUS: Observation Needs Prior to Discharge: To Be Determined 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 No SOCIAL: Living Arrangement: Home Lives With: Spouse Financial Resources: N/A Primary Contact: Extended Emergency Contact Information Primary Emergency Contact: Curry Jackson Jr Address: [address] [place] [address] [facility] Mobile Relation: Spouse Secondary Emergency Contact: Rebecca Dueñas Address: [place] [address] [facility] Relation: Mother Supportive: Yes Other Important Patient [...] 0 I feel financially burdened by my kdp-ib-vewouz expenses for my prescription medication: Disagree completely [...] patient. 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 Lives with her . CM department will continue to follow for DC needs. SIGNATURE: Donna Gupta PATIENT NAME: Trenton Jackson DATE: June 09, 2018 TIME: 4:45 PM PAGER/CONTACT #: [phone] Normal [facility] CBCon 06-09-2018 Erythrocyte distribution width Ratio (RBC) 13.0 % Normal 11.5-15.0 [facility] Comment on above: Performed By: #### H STNT #### [facility] [address] [place] [address] Hematocrit Volume Fraction (Bld) 42.5 % Normal 36.0-46.0 [facility] Comment on above: Performed By: #### H STNT #### [facility] [address] [place] [address] Hemoglobin mass conc (Bld) 14.0 g/dL Normal 11.5-15.5 [facility] Comment on above: Performed By: #### H STNT #### [facility] [address] [place] [address] MCH Entitic mass (RBC) 27.0 pG Normal 26.0-34.0 [facility] Comment on above: Performed By: #### H STNT #### [facility] [address] [place], [place] [id number] MCHC mass conc (RBC) 32.9 g/dL Normal 30.5-36.0 [facility] Comment on above: Performed By: #### H STNT #### [facility] [address] MCV Entitic volume (RBC) 82.0 fL Normal 80.0-100.0 [facility] Comment on above: Performed By: #### H STNT #### [facility] [address] [place] [phone] Platelet mean volume Entitic volume (Bld) 9.6 fL Normal 9.0-12.7 [facility] Comment on above: Performed By: #### H STNT #### [facility] [address]5[address] Platelets #/vol (Bld) 217 10*3/uL Normal 150-400 [facility] Comment on above: Performed By: #### H STNT #### [facility] [address] RBC #/vol (Bld) 5.18 10*6/uL Normal 3.90-5.20 [facility] Comment on above: Performed By: #### H STNT #### [facility] [address] [place] [phone] WBC #/vol (Bld) 8.16 10*3/uL Normal 3.70-11.00 [facility] Comment on above: Performed By: #### H STNT #### [facility] [address] [place] [phone] CONSULTon 06-09-2018 CONSULT HNO ID: [id number] Author: Jasvir Kumar Service: Gastroenterology Author Type: [...] 09, 2018 TIME: 8:21 AM PAGER: Normal [facility] Comp Metabolic Panelon 06-09 Albumin mass conc 3.5 g/dL Low 3.9-4.9 [facility] Comment on above: Performed By: #### C MP ####[facility] [address] [place] [address] ALP enzyme act/vol 83 U/L Normal 34-123 [facility] Comment on above: Performed By: #### C MP ####[facility] [address] [place] [address] ALT enzyme act/vol 12 U/L Normal 7-38 [facility] Comment on above: Performed By: #### C MP ####[place] [address] Anion gap molar conc 14 mmol/L Normal 9-18 [facility] Comment on above: Performed By: #### C MP ####[facility] [address] [place] [address] AST enzyme act/vol 14 U/L Normal 13-35 [facility] Comment on above: Performed By: #### C MP ####[facility] [address] [place] [address] Bilirubin mass conc 0.7 mg/dL Normal 0.2-1.3 [facility] Comment on above: Performed By: #### C MP ####[facility] [address] [place] [address] Calcium mass conc 8.6 mg/dL Normal 8.5-10.2 [facility] Comment on above: Performed By: #### C MP ####[facility] [address] [place] [address] Chloride molar conc 98 mmol/L Normal 97-105 [facility] Comment on above: Performed By: #### C MP ####[facility] [address] [place] [address] CO2 molar conc 22 mmol/L Normal 22-30 [facility] Comment on above: Performed By: #### C MP ####[facility] [address] [place], [place] [id number] Creatinine mass conc 0.60 mg/dL Normal 0.58-0.96 [facility] Comment on above: Performed By: #### C MP ####[facility] Majjuysukc6639 [address] eGFR- Amer. >60 Normal [facility] Comment on above: Performed By: #### C MP ####[facility] Iwcmtwbwzn6475 [address] GFR/1.73 sq M predicted among non-blacks MDRD vol rate/area (S/P/Bld) mL/min/{1.73_m2} Normal [facility] Comment on above: Result Comment: eGFR (Estimated [...] actual GFR. Performed By: #### C MP ####[facility] [address] [place] [address] Glucose mass conc 313 mg/dL High 74-99 [facility] Comment on above: Result Comment: The [place] Diabetes Association (ADA) provides guidance for cutoff [...] Standards of Medical Care in Diabetes 2016, [place] [employer]. Diabetes Care. 2016.39(Suppl 1). Performed By: #### C MP ####[facility] Hgcuxkutfi6834 [address] Potassium molar conc 3.6 mmol/L Low 3.7-5.1 [facility] Comment on above: Performed By: #### C MP ####[facility] [address] [place] [phone] Protein mass conc 5.6 g/dL Low 6.3-8.0 [facility] Comment on above: Performed By: #### C MP ####[facility] Dqacuwllcd6168 [phone] Sodium molar conc 134 mmol/L Low 136-144 [facility] Comment on above: Performed By: #### C MP ####[facility] [address] [place] [phone] Urea nitrogen mass conc 5 mg/dL Low 7-21 M [facility] Comment on above: Performed By: #### C MP ####[facility] [address] [place] [phone] Magnesiumon 06-09-2018 Magnesium mass conc 1.8 mg/dL Normal 1.7-2.3 [facility] Comment on above: Performed By: #### H STNT #### [facility] 1000 [facility] [phone] PROGRESSon 06-09-2018 Protein mass conc HNO ID: [id number] Author: Lisa Bocanegra Service: Hospital Medicine Author [...] 1615 vte non-pharmacologic prophylaxis - none indicated (ia,tn) 06/08/18 1615 activity - mobilize patient (ia,tn) VTE Prophylaxis: VTE prophylaxis appropriate SIGNATURE: Lisa Bocanegra MD PATIENT NAME: Trenton Jackson DATE: June 09, 2018 TIME: 4:55 PM PAGER: [phone] Normal [facility] ABD COMPL WITH UPRIGHT PA CH ESTon 06-08-2018 ABD COMPL WITH UPRIGHT PA CHEST Performed at [facility] APPROVED BY: Jose Elias Cabrera MD [...] of fecal material throughout the colon. Normal [facility] Comp Metabolic Panelon 06-08 Albumin mass conc 3.5 g/dL Low 3.9-4.9 [facility] Comment on above: Performed By: #### H STNT #### [facility] [address] [place] [address] ALP enzyme act/vol 95 U/L Normal 34-123 [facility] Comment on above: Performed By: #### H STNT #### [facility] [address] [place] [address] ALT enzyme act/vol 10 U/L Normal 7-38 [facility] Comment on above: Performed By: #### H STNT #### [facility] [address] [place] [address] Anion gap molar conc 9 mmol/L Normal 9-18 [facility] Comment on above: Performed By: #### H STNT #### [facility] [address] [place] [address] AST enzyme act/vol 14 U/L Normal 13-35 [facility] Comment on above: Performed By: #### H STNT #### [facility] [address] [place] [address] Bilirubin mass conc 0.9 mg/dL Normal 0.2-1.3 [facility] Comment on above: Performed By: #### H STNT #### [facility] [address] [place] [address] Calcium mass conc 8.9 mg/dL Normal 8.5-10.2 [facility] Comment on above: Performed By: #### H STNT #### [facility] [address] [place] [address] Chloride molar conc 100 mmol/L Normal 97-105 [facility] Comment on above: Performed By: #### H STNT #### [facility] [address] [place] [address] CO2 molar conc 26 mmol/L Normal 22-30 [facility] Comment on above: Performed By: #### H STNT #### [facility] [address] [place] [address] Creatinine mass conc 0.56 mg/dL Low 0.58-0.96 [facility] Comment on above: Performed By: #### H STNT #### [facility] [address] [place] [address] eGFR- Amer. >60 Normal [facility] Comment on above: Performed By: #### H STNT #### [facility] [address] [place] [address] GFR/1.73 sq M predicted among non-blacks MDRD vol rate/area (S/P/Bld) mL/min/{1.73_m2} Normal [facility] Comment on above: Result Comment: eGFR (Estimated [...] GFR. Performed By: #### H STNT #### [facility] [address] Glucose mass conc 219 mg/dL High 74-99 [facility] Comment on above: Result Comment: The [place] Diabetes Association (ADA) provides guidance for cutoff [...] Standards of Medical Care in Diabetes 2016, [place] [employer]. Diabetes Care. 2016.39(Suppl 1). Performed By: #### H STNT #### [facility] [address] [place] [address] Potassium molar conc 4.0 mmol/L Normal 3.7-5.1 [facility] Comment on above: Performed By: #### H STNT #### [facility] [address] [place] [address] Protein mass conc 5.9 g/dL Low 6.3-8.0 [facility] Comment on above: Performed By: #### H STNT #### [facility] [address] [place] [address] Sodium molar conc 135 mmol/L Low 136-144 [facility] Comment on above: Performed By: #### H STNT #### [facility] [address] [place] [address] Urea nitrogen mass conc 3 mg/dL Low 7-21 M [facility] Comment on above: Performed By: #### H STNT #### [facility] [address] [place] [address] Comprehensive Panelon 2018 ALT-SGPT Blood 20 U/L Normal 14-63 [facility] Comment on above: Performed By: #### L MACU #### [address] [address] Albumin [Mass/Vol] 3.3 g/dL Low 3.4-5.0 [facility] Comment on above: Performed By: #### L MACU #### [address] [address] ALP [Catalytic activity/Vol] 111 U/L Normal 46-116 [facility] Comment on above: Performed By: #### L MACU #### [facility] [address] [place] [address] Anion gap [Moles/Vol] 15 mmol/L Normal 8-20 [facility] Comment on above: Performed By: #### L MACU #### [facility] [address] [place] [address] AST-SGOT Blood 20 U/L Normal 15-37 [facility] Comment on above: Performed By: #### L MACU #### [facility] [address] [place] [address] Bilirubin Ql (U) 1.1 mg/dL High 0.2-1.0 [facility] Comment on above: Performed By: #### L MACU #### [place] [address] Calcium [Mass/Vol] 8.9 mg/dL Normal 8.5-10.1 [facility] Comment on above: Performed By: #### L MACU #### [facility] [address] [place] [address] Chloride [Moles/Vol] 97 mmol/L Low 98-[address] [facility] Comment on above: Performed By: #### L MACU #### [place] [address] CO2 Blood 25 mEq/L Normal 21-32 [facility] Comment on above: Performed By: #### L MACU #### [facility] [address] [place] [address] Creatinine [Mass/Vol] 0.52 mg/dL Normal 0.51-0.95 [facility] Comment on above: Performed By: #### L MACU #### [facility] [address] [place] [address] Glucose [Mass/Vol] 354 mg/dL High 70-99 [facility] Comment on above: Performed By: #### L MACU #### [place] [address] Potassium [Moles/Vol] 4.0 mmol/L Normal 3.5-5.1 [facility] Comment on above: Performed By: #### L MACU #### [facility] [address] [place], [place] [address] Protein [Mass/Vol] 7.0 g/dL Normal 6.4-8.2 [facility] Comment on above: Performed By: #### L MACU #### [facility] [address] [place], [place] [address] Sodium [Moles/Vol] 133 mmol/L Low 136-145 [facility] Comment on above: Performed By: #### L MACU #### [facility] [address] [place], [place] [address] Urea nitrogen [Mass/Vol] 4 mg/dL Low 7-25 [facility] Comment on above: Performed By: #### L MACU #### [facility] [address] [place], [place] [address] Urea nitrogen/Creatinine [Mass ratio] 8 mg/mg Low 10-20 [facility] Comment on above: Performed By: #### L MACU #### [facility] [address] [place], [place] [address] Glucose Meteron 06-08-2018 Glucose [Mass/Vol] 224 mg/dL High 70-99 [facility] Comment on above: Result Comment: CHAYITO Mccracken OTIFIED [place] [address] Performed By: #### L ACET #### [address] [address] HISTORY PHYSICALon 9 HISTORY PHYSICAL HNO ID: [id number] Author: Lisa Bocanegra Service: Hospital Medicine Author Type: Physician Type: HANDP Filed: 06/08/2018 8:28 PM Note Text: SERVICE DATE: 06/08/2018 SERVICE TIME: 8:28 PM HOSPITAL MEDICINE HISTORY AND PHYSICAL PCP: Uziel Conteh MD NIGHT AND WEEKEND COVERAGE: Nights: Please contact pager [phone]. SUBJECTIVE Chief Complaint: abd pain- 4 days [...] 1615 vte non-pharmacologic prophylaxis - none indicated (ia,tn) 06/08/18 1615 activity - mobilize patient ([place], [place]) VTE Prophylaxis: VTE prophylaxis appropriate SIGNATURE: Lisa Bocanegra MD PATIENT NAME: Trenton Jackson DATE: June 08, 2018 TIME: 8:28 PM PAGER/CONTACT #: [phone] [facility] Hemoglobin A1con 06-08-2018 Hemoglobin A1c/Hemoglobin.total mass fraction (Bld) Unable to assay. No specimen received. [facility] Comment on above: Performed By: #### H STNT #### [facility] 1000 [facility] [phone] Hemogram/Diffon 06-08-2018 Erythrocyte distribution width (RBC) [Ratio] 12.8 % Normal 11.5-15.9 [facility] Comment on above: Performed By: #### L MACU #### [address] [address] Hemoglobin (Bld) [Mass/Vol] 16.0 g/dL Normal 12.0-16.0 [facility] Comment on above: Performed By: #### L MACU #### [place] [address] MCHC (RBC) [Mass/Vol] 34.4 % Normal 32.0-36.0 [facility] Comment on above: Performed By: #### L MACU #### [place] [address] MCV (RBC) [Entitic vol] 80.3 fL Low 81.0-99.0 [facility] Comment on above: Performed By: #### L MACU #### [place] [address] WBC (Bld) [#/Vol] 14.0 thou/cmm High 4.8-10.[address] [facility] Comment on above: Performed By: #### L MACU #### [place] [address] Hemogram/Manual Diffon 06-08 Abs. Baso 0.00 thou/cmm Normal 0.00-0.08 [facility] Comment on above: Performed By: #### L MACU #### [place] [address] Abs. Eosin 0.00 thou/cmm Normal 0.00-0.41 [facility] Comment on above: Performed By: #### L MACU #### [place] [address] Abs. Lymph 2.24 thou/cmm Normal 1.50-3.65 [facility] Comment on above: Performed By: #### L MACU #### [place] [address] Abs. Brule 0.28 thou/cmm Normal 0.20-1.00 [facility] Comment on above: Performed By: #### L MACU #### [place] [address] Abs. Neut (ANC) 11.48 thou/cmm High 3.00-5.67 [facility] Comment on above: Performed By: #### L MACU #### [facility] [address] [place] [address] Basophil 0.0 % Normal [facility] Comment on above: Performed By: #### L MACU #### [facility] [address] [place] [address] Eosinophil 0.0 % Normal [facility] Comment on above: Performed By: #### L MACU #### [facility] [address] [place] [address] Lymphocyte 16.0 % Normal [facility] Comment on above: Performed By: #### L MACU #### [facility] [address] [place] [address] Monocyte 2.0 % Normal [facility] Comment on above: Performed By: #### L MACU #### [place] [address] Platelets (Bld) [#/Vol] Normal Normal [facility] Comment on above: Performed By: #### L MACU #### [place] [address] RBC morphology finding Nom (Bld) Normal Normal [facility] Comment on above: Performed By: #### L MACU #### [place] [address] Seg Neutrophil 82.0 % Normal [facility] Comment on above: Performed By: #### L MACU #### [facility] [address] [place] [address] Toxic Granulation Few Normal [facility] Comment on above: Performed By: #### L MACU #### [place] [address] WBC Morphology see below Normal [facility] Comment on above: Result Comment: Toxi c vacuoles present Performed By: #### L MACU #### [place] [address] Diff Type Manual Diff Normal [facility] Comment on above: Performed By: #### L MACU #### [facility] [address] [place] [address] Hematocrit (Bld) [Volume fraction] 46.5 % Normal 37.0-47.0 [facility] Comment on above: Performed By: #### L MACU #### [facility] [address] [place] [address] MCH (RBC) [Entitic mass] 27.6 pg Normal 27.0-31.0 [facility] Comment on above: Performed By: #### L MACU #### [place] [address] Platelet mean volume (Bld) [Entitic vol] 9.5 fl Normal 7.1-10.5 [facility] Comment on above: Performed By: #### L MACU #### [place] [address] Platelets (Bld) [#/Vol] 197 thou/cmm Normal 150-400 [facility] Comment on above: Performed By: #### L MACU #### [place] [address] RBC (Bld) [#/Vol] 5.79 mil/cmm High 4.20-5.40 [facility] Comment on above: Performed By: #### L MACU #### [place] [address] Lactic acidon 06-08-2018 Lactate [Moles/Vol] 1.2 mmol/L Normal 0.4-2.0 [facility] Comment on above: Performed By: #### L MACU #### [place] [address] MDRD eGFRon 06-08-2018 GFR/1.73 sq M predicted among non-blacks MDRD (S/P/Bld) [Vol rate/Area] mL/min/{1.73_m2} Normal >60mL/min/ 1.73m2 [facility] Comment on above: Result Comment: If t he patient is , multiply the result by 1.210. Performed By: #### L ACET #### [place] [address] NT Pro BNPon 06-08-2018 Protein mass conc 763 pg/mL High <125 [facility] Comment on above: Performed By: #### H STNT #### [facility] [address] [facility] [phone] PROGRESSon 06-08-2018 Protein mass conc HNO ID: [id number] Author: Abbi Valencia (Pharmacist) Service: Pharmacy Author [...] patient is on atorvastatin ABBI VALENCIA, PHARMD, [facility] PAGER / Extension: [phone] Normal [facility] Urinalysis Routineon 019 Appearance (U) 1+ (HAZY) Normal [facility] Comment on above: Performed By: #### L ACET #### [place] [address] Bilirubin Urine Negative Normal Negative [facility] Comment on above: Performed By: #### L ACET #### [place] [address] Color (U) YELLOW Normal [facility] Comment on above: Performed By: #### L ACET #### [place] [address] Ep Cells Urine 2-5 Normal 0-5 [facility] Comment on above: Performed By: #### L ACET #### [place] [address] Glucose Ql (U) 2+ Abnormal Negative [facility] Comment on above: Performed By: #### L ACET #### [place] [address] Hemoglobin,Urine Negative Normal Negative [facility] Comment on above: Performed By: #### L ACET #### [place] [address] Ketone Urine 1+ Abnormal Negative [facility] Comment on above: Performed By: #### L ACET #### [place] [address] Leukocytes Esterase Negative Normal Negative [facility] Comment on above: Performed By: #### L ACET #### [place] [address] Nitrites Urine Negative Normal Negative [facility] Comment on above: Performed By: #### L ACET #### [place] [address] pH (U) 7.0 [pH] Normal 5.0-8.0 [facility] Comment on above: Performed By: #### L ACET #### [place] [address] Protein (U) [Mass/Vol] Negative Normal Negative [facility] Comment on above: Performed By: #### L ACET #### [place] [address] RBC LM.HPF (Urine sed) [#/Area] 0-3 Normal 0-3 [facility] Comment on above: Performed By: #### L ACET #### [place] [address] Specific [place], Ur 1.015 Normal 1.005-1 .03 0 [facility] Comment on above: Performed By: #### L ACET #### [place] [address] Urobilinogen,Ur 0.2 EU/dL Normal 0.0-1.0 [facility] Comment on above: Performed By: #### L ACET #### [place] [address] WBC LM.HPF (Urine sed) [#/Area] NONE Normal 0-5 [facility] Comment on above: Performed By: #### L ACET #### [place] [address] Urine HCG, Qual.on 9 Beta HCG ( test) Ql (U) Negative Normal Negative [facility] Comment on above: Performed By: #### L ACET #### [facility] [address] [place] [id number] ABDOMEN AND PELVIS WITH C ONTRASTon 06-07-2018 CT ABDOMEN AND PELVIS WITH CONTRAST Performed at [facility] APPROVED BY: Chalo Russell MD EXAMINATION: [...] evidence of an abscess or pneumoperitoneum Normal [facility] Comprehensive Panelon 2018 Albumin [Mass/Vol] 3.5 g/dL Normal 3.4-5.0 [facility] Comment on above: Performed By: #### L MACU #### [facility] [address] [place] [address] ALP [Catalytic activity/Vol] 112 U/L Normal 46-116 [facility] Comment on above: Performed By: #### L MACU #### [facility] [address] [place] [address] ALT-SGPT Blood 17 U/L Normal 14-63 [facility] Comment on above: Performed By: #### L MACU #### [facility] [address] [place] [address] Anion gap [Moles/Vol] 14 mmol/L Normal 8-20 [facility] Comment on above: Performed By: #### L MACU #### [facility] [address] [place] [address] AST-SGOT Blood 16 U/L Normal 15-37 [facility] Comment on above: Performed By: #### L MACU #### [facility] [address] [place] [address] Bilirubin Ql (U) 0.7 mg/dL Normal 0.2-1.0 [facility] Comment on above: Performed By: #### L MACU #### [facility] [address] [place] [address] Calcium [Mass/Vol] 9.1 mg/dL Normal 8.5-10.1 [facility] Comment on above: Performed By: #### L MACU #### [facility] [address] [place] [address] Chloride [Moles/Vol] 97 mmol/L Low 98-[address] [facility] Comment on above: Performed By: #### L MACU #### [facility] [address] [place] [address] CO2 Blood 27 mEq/L Normal 21-32 [facility] Comment on above: Performed By: #### L MACU #### [facility] [address] [place], [place] [address] Creatinine [Mass/Vol] 0.57 mg/dL Normal 0.51-0.95 [facility] Comment on above: Performed By: #### L MACU #### [facility] [address] [place], [place] [address] Glucose [Mass/Vol] 416 mg/dL Critically high 70-99 [facility] Comment on above: Performed By: #### L MACU #### [facility] [address] [place], [place] [address] Potassium [Moles/Vol] 3.9 mmol/L Normal 3.5-5.1 [facility] Comment on above: Performed By: #### L MACU #### [facility] [address] [place], [place] [address] Protein [Mass/Vol] 7.4 g/dL Normal 6.4-8.2 [facility] Comment on above: Performed By: #### L MACU #### [facility] [address] [place], [place] [address] Sodium [Moles/Vol] 134 mmol/L Low 136-145 [facility] Comment on above: Performed By: #### L MACU #### [facility] [address] [place], [place] [address] Urea nitrogen [Mass/Vol] 7 mg/dL Normal 7-25 [facility] Comment on above: Performed By: #### L MACU #### [address] [address] Urea nitrogen/Creatinine [Mass ratio] 12 mg/mg Normal 10-20 [facility] Comment on above: Performed By: #### L MACU #### [facility] [address] [place], [place] [address] Glucose Meteron 06-07-2018 Glucose [Mass/Vol] 326 mg/dL High 70-99 [facility] Comment on above: Result Comment: CHAYITO MÉNDEZ MD NOTIFIED Testing performed at [address] [address] Performed By: #### L MACU #### [facility] [address] [place] [address] Hemogram/Diffon 06-07-2018 Abs. Baso 0.07 thou/cmm Normal 0.00-0.08 [facility] Comment on above: Performed By: #### L CBCD #### [facility] [address] [place] [address] Abs. Brule 0.43 thou/cmm Normal 0.20-1.00 [facility] Comment on above: Performed By: #### L CBCD #### [place] [address] Abs. Neut (ANC) 9.53 thou/cmm High 3.00-5.67 [facility] Comment on above: Performed By: #### L CBCD #### [place] [address] Basophils/100 WBC (Bld) 0.6 % Normal [facility] Comment on above: Performed By: #### L CBCD #### [place] [address] Eosinophils (Bld) [#/Vol] 0.17 thou/cmm Normal 0.00-0.41 [facility] Comment on above: Performed By: #### L CBCD #### [place] [address] Eosinophils/100 WBC (Bld) 1.4 % Normal [facility] Comment on above: Performed By: #### L CBCD #### [place] [address] Erythrocyte distribution width (RBC) [Ratio] 12.8 % Normal 11.5-15.9 [facility] Comment on above: Performed By: #### L CBCD #### [place] [address] Hematocrit (Bld) [Volume fraction] 47.7 % High 37.0-47.0 [facility] Comment on above: Performed By: #### L CBCD #### [place] [address] Hemoglobin (Bld) [Mass/Vol] 16.1 g/dL High 12.0-16.0 [facility] Comment on above: Performed By: #### L CBCD #### [facility] [address] [place], [place] [address] Lymphocytes (Bld) [#/Vol] 2.00 thou/cmm Normal 1.50-3.65 [facility] Comment on above: Performed By: #### L CBCD #### [facility] [address] [place], [place] [address] Lymphocytes/100 WBC (Bld) 16.4 % Normal [facility] Comment on above: Performed By: #### L CBCD #### [facility] [address] [place] [address] MCH (RBC) [Entitic mass] 27.3 pg Normal 27.0-31.0 [facility] Comment on above: Performed By: #### L CBCD #### [place] [address] MCHC (RBC) [Mass/Vol] 33.8 % Normal 32.0-36.0 [facility] Comment on above: Performed By: #### L CBCD #### [place] [address] MCV (RBC) [Entitic vol] 81.0 fL Normal 81.0-99.0 [facility] Comment on above: Performed By: #### L CBCD #### [place] [address] Monocytes/100 WBC (Bld) 3.5 % Normal [facility] Comment on above: Performed By: #### L CBCD #### [place] [address] Platelet mean volume (Bld) [Entitic vol] 9.5 fL Normal 7.1-10.5 [facility] Comment on above: Performed By: #### L CBCD #### [address] [address] Platelets (Bld) [#/Vol] 235 thou/cmm Normal 150-400 [facility] Comment on above: Performed By: #### L CBCD #### [facility] [address] [place] [address] RBC (Bld) [#/Vol] 5.89 mil/cmm High 4.20-5.40 [facility] Comment on above: Performed By: #### L CBCD #### [facility] [address] [place] [address] Seg Neutrophil 78.1 % Normal [facility] Comment on above: Performed By: #### L CBCD #### [facility] [address] [place] [address] WBC (Bld) [#/Vol] 12.2 thou/cmm High 4.8-10.[address] [facility] Comment on above: Performed By: #### L CBCD #### [place] [address] Lactic acidon 06-07-2018 Lactate [Moles/Vol] 1.6 mmol/L Normal 0.4-2.0 [facility] Comment on above: Performed By: #### L MACU #### [place] [address] MDRD eGFRon 06-07-2018 GFR/1.73 sq M predicted among non-blacks MDRD (S/P/Bld) [Vol rate/Area] mL/min/{1.73_m2} Normal >60mL/min/ 1.73m2 [facility] Comment on above: Result Comment: If t he patient is , multiply the result by 1.210. Performed By: #### L MACU #### [facility] [address] [place] [address] Macroscopic Urinalysison Appearance (U) CLEAR Normal [facility] Comment on above: Performed By: #### L MACU #### [facility] [address] [place] [address] Bilirubin Urine Negative Normal Negative [facility] Comment on above: Performed By: #### L MACU #### [place] [address] Color (U) YELLOW Normal [facility] Comment on above: Performed By: #### L MACU #### [facility] [address] [place] [address] Glucose Ql (U) 3+ Abnormal Negative [facility] Comment on above: Performed By: #### L MACU #### [place] [address] Hemoglobin,Urine Negative Normal Negative [facility] Comment on above: Performed By: #### L MACU #### [place] [address] Ketone Urine TRACE Abnormal Negative [facility] Comment on above: Performed By: #### L MACU #### [place] [address] Leukocytes Esterase Negative Normal Negative [facility] Comment on above: Performed By: #### L MACU #### [place] [address] Nitrites Urine Negative Normal Negative [facility] Comment on above: Performed By: #### L MACU #### [place] [address] pH (U) 6.5 [pH] Normal 5.0-8.0 [facility] Comment on above: Performed By: #### L MACU #### [place] [address] Protein (U) [Mass/Vol] Negative Normal Negative [facility] Comment on above: Performed By: #### L MACU #### [place] [address] Specific [place], Ur <=1.005 Normal 1.005-1 .03 0 [facility] Comment on above: Performed By: #### L MACU #### [place] [address] Urobilinogen,Ur 0.2 EU/dL Normal 0.0-1.0 [facility] Comment on above: Performed By: #### L MACU #### [place] [address] [address] ABDOMEN AND PELVIS WITH C ONTRASTon 06-04-2018 CT ABDOMEN AND PELVIS WITH CONTRAST Performed at [facility] APPROVED BY: Nixon Cortez MD EXAM [...] additional stable chronic findings as above Normal [facility] Comprehensive Panelon 2018 Albumin [Mass/Vol] 3.9 g/dL Normal 3.4-5.0 [facility] Comment on above: Performed By: #### L P14 #### [facility] [address] [place] [address] ALP [Catalytic activity/Vol] 139 U/L High 46-116 [facility] Comment on above: Performed By: #### L P14 #### [place] [address] ALT-SGPT Blood 22 U/L Normal 14-63 [facility] Comment on above: Performed By: #### L P14 #### [place] [address] Anion gap [Moles/Vol] 13 mmol/L Normal 8-20 [facility] Comment on above: Performed By: #### L P14 #### [place] [address] AST-SGOT Blood 19 U/L Normal 15-37 [facility] Comment on above: Performed By: #### L P14 #### [place] [address] Bilirubin Ql (U) 0.7 mg/dL Normal 0.2-1.0 [facility] Comment on above: Performed By: #### L P14 #### [facility] [address] [place] [address] Calcium [Mass/Vol] 9.5 mg/dL Normal 8.5-10.1 [facility] Comment on above: Performed By: #### L P14 #### [facility] [address] [place] [address] Chloride [Moles/Vol] 97 mmol/L Low 98-[address] [facility] Comment on above: Performed By: #### L P14 #### [place] [address] CO2 Blood 23 mEq/L Normal 21-32 [facility] Comment on above: Performed By: #### L P14 #### [facility] [address] [place], [place] [address] Creatinine [Mass/Vol] 0.56 mg/dL Normal 0.51-0.95 [facility] Comment on above: Performed By: #### L P14 #### [facility] [address] [place], [place] [address] Glucose [Mass/Vol] 323 mg/dL High 70-99 [facility] Comment on above: Performed By: #### L P14 #### [facility] [address] [place], [place] [address] Potassium [Moles/Vol] 4.5 mmol/L Normal 3.5-5.1 [facility] Comment on above: Performed By: #### L P14 #### [address] [address] Protein [Mass/Vol] 8.0 g/dL Normal 6.4-8.2 [facility] Comment on above: Performed By: #### L P14 #### [address] [address] Sodium [Moles/Vol] 129 mmol/L Low 136-145 [facility] Comment on above: Performed By: #### L P14 #### [address] [address] Urea nitrogen [Mass/Vol] 9 mg/dL Normal 7-25 [facility] Comment on above: Performed By: #### L P14 #### [address] [address] Urea nitrogen/Creatinine [Mass ratio] 16 mg/mg Normal 10-20 [facility] Comment on above: Performed By: #### L P14 #### [address] [address] HCG, Qual. Serumon 9 HCG, Qual. Serum Negative Normal Negative [facility] Comment on above: Performed By: #### L SHCG #### [address] [address] Hemogram/Manual Diffon 06-04 Abs. Baso 0.00 thou/cmm Normal 0.00-0.08 [facility] Comment on above: Performed By: #### L MCBD #### [facility] [address] [place] [address] Abs. Eosin 0.17 thou/cmm Normal 0.00-0.41 [facility] Comment on above: Performed By: #### L MCBD #### [facility] [address] [place] [address] Abs. Lymph 3.46 thou/cmm Normal 1.50-3.65 [facility] Comment on above: Performed By: #### L MCBD #### [facility] [address] [place] [address] Abs. Brule 0.69 thou/cmm Normal 0.20-1.00 [facility] Comment on above: Performed By: #### L MCBD #### [facility] [address] [place] [address] Abs. Neut (ANC) 12.98 thou/cmm High 3.00-5.67 [facility] Comment on above: Performed By: #### L MCBD #### [facility] [address] [place] [address] Atypical Lymph 3.0 % Normal [facility] Comment on above: Performed By: #### L MCBD #### [place] [address] Basophil 0.0 % Normal [facility] Comment on above: Performed By: #### L MCBD #### [facility] [address] [place] [address] Eosinophil 1.0 % Normal [facility] Comment on above: Performed By: #### L MCBD #### [facility] [address] [place] [address] Lymphocyte 17.0 % Normal [facility] Comment on above: Performed By: #### L MCBD #### [place] [address] Metamyelocytes 2.0 % Normal [facility] Comment on above: Performed By: #### L MCBD #### [facility] [address] [place] [address] Monocyte 4.0 % Normal [facility] Comment on above: Performed By: #### L MCBD #### [facility] [address] [place] [address] Platelets (Bld) [#/Vol] Normal Normal [facility] Comment on above: Performed By: #### L MCBD #### [facility] [address] [place] [address] RBC morphology finding Nom (Bld) Normal Normal [facility] Comment on above: Performed By: #### L MCBD #### [facility] [address] [place] [address] Seg Neutrophil 73.0 % Normal [facility] Comment on above: Performed By: #### L MCBD #### [place] [address] Toxic Granulation Few Normal [facility] Comment on above: Performed By: #### L MCBD #### [place] [address] WBC Morphology see below Normal [facility] Comment on above: Result Comment: Toxi c vacuoles present Performed By: #### L MCBD #### [place] [address] Diff Type Manual Diff Normal [facility] Comment on above: Performed By: #### L MCBD #### [place] [address] Erythrocyte distribution width (RBC) [Ratio] 13.2 % Normal 11.5-15.9 [facility] Comment on above: Performed By: #### L MCBD #### [facility] [address] [place] [address] Hematocrit (Bld) [Volume fraction] 51.8 % High 37.0-47.0 [facility] Comment on above: Performed By: #### L MCBD #### [place] [address] Hemoglobin (Bld) [Mass/Vol] 17.7 g/dL High 12.0-16.0 [facility] Comment on above: Performed By: #### L MCBD #### [facility] [address] [place], [place] [address] MCH (RBC) [Entitic mass] 27.5 pg Normal 27.0-31.0 [facility] Comment on above: Performed By: #### L MCBD #### [facility] [address] [place], [place] [address] MCHC (RBC) [Mass/Vol] 34.2 % Normal 32.0-36.0 [facility] Comment on above: Performed By: #### L MCBD #### [facility] [address] [place] [address] MCV (RBC) [Entitic vol] 80.4 fl Low 81.0-99.0 [facility] Comment on above: Performed By: #### L MCBD #### [facility] [address] [place] [address] Platelet mean volume (Bld) [Entitic vol] 10.3 fl Normal 7.1-10.5 [facility] Comment on above: Performed By: #### L MCBD #### [facility] [address] [place] [address] Platelets (Bld) [#/Vol] 224 thou/cmm Normal 150-400 [facility] Comment on above: Performed By: #### L MCBD #### [facility] [address] [place] [address] RBC (Bld) [#/Vol] 6.44 mil/cmm High 4.20-5.40 [facility] Comment on above: Performed By: #### L MCBD #### [facility] [address] [place] [address] WBC (Bld) [#/Vol] 17.3 thou/cmm High 4.8-10.[address] [facility] Comment on above: Performed By: #### L MCBD #### [facility] [address] [place] [address] Ketoneson 06-04-2018 Ketones Ql (U) Negative Normal Negative [facility] Comment on above: Performed By: #### L ACET #### [facility] [address] [place] [address] Lipase Bloodon 06-04-2018 Lipase Blood 85 U/L Normal 73-393 [facility] Comment on above: Performed By: #### L LIP #### [place] [address] MDRD eGFRon 06-04-2018 GFR/1.73 sq M predicted among non-blacks MDRD (S/P/Bld) [Vol rate/Area] mL/min/{1.73_m2} Normal >60mL/min/ 1.73m2 [facility] Comment on above: Result Comment: If t he patient is , multiply the result by 1.210. Performed By: #### L GFR #### [place] [address] Macroscopic Urinalysison Appearance (U) CLEAR Normal [facility] Comment on above: Performed By: #### L MACU #### [place] [address] Bilirubin Urine Negative Normal Negative [facility] Comment on above: Performed By: #### L MACU #### [place] [address] Color (U) YELLOW Normal [facility] Comment on above: Performed By: #### L MACU #### [place] [address] Glucose Ql (U) 2+ Abnormal Negative [facility] Comment on above: Performed By: #### L MACU #### [place] [address] Hemoglobin,Urine Negative Normal Negative [facility] Comment on above: Performed By: #### L MACU #### [place] [address] Ketone Urine Negative Normal Negative [facility] Comment on above: Performed By: #### L MACU #### [place] [address] Leukocytes Esterase Negative Normal Negative [facility] Comment on above: Performed By: #### L MACU #### [facility] [address] [place] [address] Nitrites Urine Negative Normal Negative [facility] Comment on above: Performed By: #### L MACU #### [facility] [address] [place] [address] pH (U) 5.0 [pH] Normal 5.0-8.0 [facility] Comment on above: Performed By: #### L MACU #### [place] [address] Protein (U) [Mass/Vol] Negative Normal Negative [facility] Comment on above: Performed By: #### L MACU #### [place] [address] Specific [place], Ur 1.020 Normal 1.005-1 .03 0 [facility] Comment on above: Performed By: #### L MACU #### [place] [address] Urobilinogen,Ur 0.2 EU/dL Normal 0.0-1.0 [facility] Comment on above: Performed By: #### L MACU #### [place] [address] Macroscopic Urinalysison Appearance (U) CLEAR Normal [facility] Comment on above: Performed By: #### L MACU #### [place] [address] Bilirubin Urine Negative Normal Negative [facility] Comment on above: Performed By: #### L MACU #### [place] [address] Color (U) YELLOW Normal [facility] Comment on above: Performed By: #### L MACU #### [place] [address] Glucose Ql (U) 2+ Abnormal Negative [facility] Comment on above: Performed By: #### L MACU #### [place] [address] Hemoglobin,Urine Negative Normal Negative [facility] Comment on above: Performed By: #### L MACU #### [facility] [address] [place] [address] Ketone Urine Negative Normal Negative [facility] Comment on above: Performed By: #### L MACU #### [facility] [address] [place] [address] Leukocytes Esterase Negative Normal Negative [facility] Comment on above: Performed By: #### L MACU #### [facility] [address] [place] [address] Nitrites Urine Negative Normal Negative [facility] Comment on above: Performed By: #### L MACU #### [place] [address] pH (U) 6.0 [pH] Normal 5.0-8.0 [facility] Comment on above: Performed By: #### L MACU #### [place] [address] Protein (U) [Mass/Vol] Negative Normal Negative [facility] Comment on above: Performed By: #### L MACU #### [facility] [address] [place] [address] Specific [place], Ur 1.020 Normal 1.005-1 .03 0 [facility] Comment on above: Performed By: #### L MACU #### [place] [address] Urobilinogen,Ur 0.2 EU/dL Normal 0.0-1.0 [facility] Comment on above: Performed By: #### L MACU #### [place] [address] CBC and Differentialon 12-14 Abs Baso 0.06 k/uL Normal <0.11 [facility] Comment on above: Performed By: #### N MENDEZ VELÁSQUEZMB #### [facility] [address] [place] [address] Abs Brule 0.69 k/uL Normal <0.87 [facility] Comment on above: Performed By: #### N DIDIER CKAMARILISMB #### [facility] [address] [place] [address] Abs Neut 8.14 k/uL High 1.45-7.50 [facility] Comment on above: Performed By: #### N TBAMOR CKCKMB #### [facility] [address] Basophils/100 WBC (Bld) 0.5 % Normal [facility] Comment on above: Performed By: #### N TBNP CKCKMB #### [facility] [address] [place] [address] Eosinophils #/vol (Bld) 0.14 10*3/uL Normal <0.46 [facility] Comment on above: Performed By: #### N TBAMOR CKCKMB #### [facility] [address] [place] [address] Eosinophils/100 WBC (Bld) 1.2 % Normal [facility] [facility] Comment on above: Performed By: #### N TBAMOR CKCKMB #### [facility] [address] [place] [address] Erythrocyte distribution width Ratio (RBC) 13.1 % Normal 11.5-15.0 [facility] Comment on above: Performed By: #### N TBAMOR CKCKMB #### [facility] [address] [place] [address] Hematocrit Volume Fraction (Bld) 46.6 % High 36.0-46.0 [facility] Comment on above: Performed By: #### N TBAMOR CKCKMB #### [facility] [address] [place] [address] Hemoglobin mass conc (Bld) 15.9 g/dL High 11.5-15.5 [facility] Comment on above: Performed By: #### N TBNP, CKCKMB #### [facility] [address] [place] [address] Lymphocytes #/vol (Bld) 2.69 10*3/uL Normal 1.00-4.00 [facility] Comment on above: Performed By: #### N TBNP, CKCKMB #### [facility] [address] [place], [place] [id number] Lymphocytes/100 WBC (Bld) 23.0 % Normal [facility] Comment on above: Performed By: #### N TBNP CKCKMB #### [facility] [address] [address] MCH Entitic mass (RBC) 28.0 pG Normal 26.0-34.0 [facility] Comment on above: Performed By: #### N DIDIER CKCKMB #### [facility] [address] [address] MCHC mass conc (RBC) 34.1 g/dL Normal 30.5-36.0 [facility] Comment on above: Performed By: #### N DIDIER CKCKMB #### [facility] [address] [address] MCV Entitic volume (RBC) 82.0 fL Normal 80.0-100.0 [facility] Comment on above: Performed By: #### N DIDIER CKAMARILISMB #### [facility] [address] [address] Monocytes/100 WBC (Bld) 5.9 % Normal [facility] Comment on above: Performed By: #### N DIDIER CKAMARILISMB #### [facility] [address] [address] Neutrophils/100 WBC (Bld) 69.4 % Normal [facility] Comment on above: Performed By: #### N DIDIER CKAMARILISMB #### [facility] [address] [address] Platelet mean volume Entitic volume (Bld) 10.5 fL Normal 9.0-12.7 [facility] Comment on above: Performed By: #### N DIDIER CKCKMB #### [facility] [address] [address] Platelets #/vol (Bld) 236 10*3/uL Normal 150-400 [facility] Comment on above: Performed By: #### N DIDIER CKCKMB #### [facility] [address] [address] RBC #/vol (Bld) 5.68 10*6/uL High 3.90-5.20 [facility] Comment on above: Performed By: #### N DIDIER CKCKMB #### [facility] [address] [address] WBC #/vol (Bld) 11.72 10*3/uL High 3.70-11.00 [facility] Comment on above: Performed By: #### N TBNP, CKCKMB #### [facility] [address] [phone] CK, Total and CKMBon 018 CK enzyme act/vol 41 U/L Low 42-196 [facility] Comment on above: Performed By: #### N TBNP, CKCKMB #### [facility] [address] [phone] CK MB % CK MB % not reported with CK <100 U/L. Normal 0.0-4.0 [facility] Comment on above: Performed By: #### N TBNP, CKCKMB #### [facility] [address] [phone] MB 1.5 ng/mL Normal <4.3 [facility] Comment on above: Performed By: #### N TBNP, CKCKMB #### [facility] [address] [phone] CT CHEST W IVCON PEon 2017 CT CHEST W IVCON PE * * *Final Report* * * DATE OF EXAM: Dec 14 2017 6:46PM [facility] [place] CT CHEST W IVCON PE [...] nodes. Cholecystectomy. Bilateral adrenal nodules, possibly adenomas. Police Captain: GEORGE Transcribe Date/Time: Dec 14 2017 7:14P Dictated by : WILLA VELASCO MD This examination was interpreted and the report reviewed and electronically signed by: WILLA VELASCO MD on Dec 14 2017 7:21PM EST [id number] Normal [facility] Comp Metabolic Panelon 12-14 Albumin mass conc 3.8 g/dL Low 3.9-4.9 [facility] Comment on above: Performed By: #### N DIDIER CKCKMB #### [facility] [address] [place] [address] ALP enzyme act/vol 82 U/L Normal 32-117 [facility] Comment on above: Performed By: #### N DIDIER CKCKMB #### [facility] [address] [place] [address] ALT enzyme act/vol 17 U/L Normal 7-38 [facility] Comment on above: Performed By: #### N DIDIER CKCKMB #### [facility] [address] [place] [address] Anion gap molar conc 10 mmol/L Normal 9-18 [facility] Comment on above: Performed By: #### N TBAMOR CKCKMB #### [facility] [address] [place] [address] AST enzyme act/vol 17 U/L Normal 13-35 [facility] Comment on above: Performed By: #### N TBAMOR CKCKMB #### [facility] [address] [address] Bilirubin mass conc 0.6 mg/dL Normal 0.2-1.3 [facility] Comment on above: Performed By: #### N TBAMOR CKCKMB #### [facility] [address] [address] Calcium mass conc 8.9 mg/dL Normal 8.5-10.2 [facility] Comment on above: Performed By: #### N TBAMOR CKCKMB #### [facility] [address] [address] Chloride molar conc 99 mmol/L Normal 97-105 [facility] Comment on above: Performed By: #### N TBAMOR CKCKMB #### [facility] [address] [address] CO2 molar conc 28 mmol/L Normal 22-30 [facility] Comment on above: Performed By: #### N TBAMOR CKCKMB #### [facility] [address] [address] Creatinine mass conc 0.67 mg/dL Normal 0.58-0.96 [facility] Comment on above: Performed By: #### N TBAMOR CKCKMB #### [facility] [address] [address] eGFR- Amer. >60 Normal [facility] Comment on above: Performed By: #### N TBAMOR CKCKMB #### [facility] [address] [place] [address] GFR/1.73 sq M predicted among non-blacks MDRD vol rate/area (S/P/Bld) mL/min/{1.73_m2} Normal [facility] Comment on above: Result Comment: eGFR (Estimated [...] Performed By: #### N HITESH VELÁSQUEZ #### [facility] [address] [address] Glucose mass conc 180 mg/dL High 74-99 [facility] Comment on above: Result Comment: The [place] [employer] (ADA) provides guidance for cutoff [...] Standards of Medical Care in Diabetes 2016, [place] [employer]. Diabetes Care. 2016.39(Suppl 1). Performed By: #### N DIDIER CKAMARILISMB #### [facility] [address] [place] [address] Potassium molar conc 4.2 mmol/L Normal 3.7-5.1 [facility] Comment on above: Performed By: #### N DIDIER CKCKMB #### [facility] [address] [place] [address] Protein mass conc 6.9 g/dL Normal 6.3-8.0 [facility] Comment on above: Performed By: #### N DIDIER CKCKMB #### [facility] [address] [address] Sodium molar conc 137 mmol/L Normal 136-144 [facility] Comment on above: Performed By: #### N DIDIER CKCKMB #### [facility] [address] [place] [address] Urea nitrogen mass conc 9 mg/dL Normal 7-21 M [facility] Comment on above: Performed By: #### N DIDIER CKCKMB #### [facility] [address] [place] [address] D dimeron 12-14-2017 D dimer 600 ng/mL FEU High 0-500 [facility] Comment on above: Result Comment: The D-dimer [...] Performed By: #### N TBNP, CKCKMB #### [facility] [address] [facility] [phone] ED NOTEon 12-14-2017 ED NOTE HNO ID: [id number] Author: Stacey Solano) CHAYITO Godinez Service: (none) Author Type: Registered Nurse Type: ED Notes Filed: 12/14/2017 7:58 PM Note Text: Patient in stable condition upon discharge. resp even and unlabored. No distress noted. Patient states she is feeling much better. Discharge and follow up reviewed, plan of care is agreed upon. Patient thankful for care upon discharge. [facility] ED NOTE HNO ID: [id number] Author: Lyla Ramírez RN Service: Nursing Author Type: Registered Nurse Type: ED Notes Filed: 12/14/2017 6:43 PM Note Text: Patient returned to the Emergency Department. [facility] ED NOTE HNO ID: [id number] Author: Lyla Ramírez RN Service: Nursing Author Type: Registered Nurse Type: ED Notes Filed: 12/14/2017 6:31 PM Note Text: Pt to CT with tech via wheelchair [facility] ED NOTE HNO ID: [id number] Author: Lyla Ramírez RN Service: Nursing Author Type: Registered Nurse Type: ED Notes Filed: 12/14/2017 6:14 PM Note Text: Dr. Conway rounding on pt at bedside [facility] ED NOTE HNO ID: [id number] Author: Lyla Ramírez RN Service: Nursing Author Type: Registered Nurse Type: ED Notes Filed: 12/14/2017 3:31 PM Note Text: Patient returned to the Emergency Department. [facility] ED NOTE HNO ID: [id number] Author: Lyla (Rn) CHAYITO Ramírez Service: Nursing Author Type: Registered Nurse Type: ED Notes Filed: 12/14/2017 3:25 PM Note Text: Pt to xray with tech. [facility] ED NOTE HNO ID: [id number] Author: Jazzmine AgudeloRn) CHAYITO Jarrett Service: Emergency Medicine Author Type: Registered Nurse Type: ED Notes Filed: 12/14/2017 3:28 PM Note Text: Report off care to Racquel STRATTON [facility] ED NOTE HNO ID: [id number] Author: Stacey AgudeloRn) CHAYITO Godinez Service: (none) Author Type: Registered Nurse Type: ED Notes Filed: 12/14/2017 2:57 PM Note Text: Patient presents to ED with chest pain x 4 days. [facility] ED PROV NOTEon 12-14-2017 Protein mass conc HNO ID: [id number] Author: Jimmie Conway DO Service: Emergency Medicine Author Type: Physician Type: ED Provider Notes Filed: 12/14/2017 7:42 PM Note Text: ED Provider Note Patient Name: Trenton Jackson SERVICE DATE: 12/14/17 History Patient presents with: Chest Pain 47-year-old female past medical history of diabetes hypertension hyperlipidemia tobacco abuse presents with chest pain. Patient recently had an admission at [facility] from December 04, 2017 2 December 08, [...] Medications administered aspirin and Toradol Placed on youth nutritional monitor Reviewed and summarized previous medical records including recent admission at [facility] for extensive cardiac workup Consultation obtained press box custodian Dr. Beyer Consultation recommendations unlikely to be related to recently diagnosed coronary artery dissection Stable upon arrival. EKG shows chronic abnormalities unchanged from recent EKGs.. Treated with aspirin followed by Toradol. Cardiac enzymes including troponin T and CK-MB within normal limits. Minimal leukocytosis noted. Chest x-ray negative. D-dimer mildly elevated. CT chest negative. Discussed with on-call press box custodian, chest pain unlikely to be related to recently diagnosed coronary artery dissection. Patient with significant improvement pain post analgesia as noted above. Will be discharged home in stable condition with continued use of previously prescribed tramadol and new prescription for Flexeril thoroughly notified of sedating effects. Referral provided to paint mixer machine, will follow-up with both press box custodian and primary care physician as soon as [...] DO Jimmie Helm DO 12/14/17 194 Normal [facility] Magnesiumon 12-14-2017 Magnesium mass conc 1.9 mg/dL Normal 1.7-2.3 [facility] Comment on above: Performed By: #### N TBAMOR, CKCKMB #### [facility] [address] [facility] [phone] Troponin Ton 12-14-2017 Troponin T.cardiac mass conc ug/L Normal 0.000-0.02 9 [facility] Comment on above: Performed By: #### N TBNP, CKCKMB #### [facility] [address] [facility] [phone] XR CHEST 2V FRONTAL/LATon XR CHEST 2V [...] Other: . IMPRESSION: No acute radiographic abnormality. Police Captain: GEORGE Transcribe Date/Time: Dec 14 2017 3:44P Dictated by : WILLA VELASCO MD This examination was interpreted and the report reviewed and electronically signed by: WILLA VELASCO MD on Dec 14 2017 3:44PM EST [id number] Normal [facility] CBCon 12-04-2017 Erythrocyte distribution width Ratio (RBC) 13.1 % Normal 11.5-15.0 [facility] Comment on above: Performed By: #### C BCDIF, PT, PTT, CMP #### [facility] [address] [address] Hematocrit Volume Fraction (Bld) 44.2 % Normal 36.0-46.0 [facility] Comment on above: Performed By: #### C BCDIF, PT, PTT, CMP #### [facility] [address] [place] [address] Hemoglobin mass conc (Bld) 14.8 g/dL Normal 11.5-15.5 [facility] Comment on above: Performed By: #### C BCDIF, PT, PTT, CMP #### [facility] [address] [place] [address] MCH Entitic mass (RBC) 27.5 pG Normal 26.0-34.0 [facility] Comment on above: Performed By: #### C BCDIF, PT, PTT, CMP #### [facility] [address] [place] [address] MCHC mass conc (RBC) 33.5 g/dL Normal 30.5-36.0 [facility] Comment on above: Performed By: #### C BCDIF, PT, PTT, CMP #### [facility] [address] [place] [address] MCV Entitic volume (RBC) 82.0 fL Normal 80.0-100.0 [facility] Comment on above: Performed By: #### C BCDIF, PT, PTT, CMP #### [facility] [address] [place], [place] [address] Platelet mean volume Entitic volume (Bld) 10.1 fL Normal 9.0-12.7 [facility] Comment on above: Performed By: #### C BCDIF, PT, PTT, CMP #### [facility] [address] [place], [place] [id number] Platelets #/vol (Bld) 227 10*3/uL Normal 150-400 [facility] Comment on above: Performed By: #### C BCDIF, PT, PTT, CMP #### [facility] [address] [facility] [phone] RBC #/vol (Bld) 5.39 10*6/uL High 3.90-5.20 [facility] Comment on above: Performed By: #### C BCDIF, PT, PTT, CMP #### [facility] [address] [phone] WBC #/vol (Bld) 9.07 10*3/uL Normal 3.70-11.00 [facility] Comment on above: Performed By: #### C BCDIF, PT, PTT, CMP #### [facility] [address] [phone] CNCOon 12-04-2017 CNCO Letter Text December 04, 2017 Trenton Jackson [address] [facility] [address] Dear Ms. Jackson, The nurses and staff of [facility] hope this letter finds you feeling well [...] free to contact me, Bety Alcaraz RN ([phone]) or email me at, [email or web address] Additionally, you will receive a survey [...] participation and thank you for choosing the [facility] for your health needs. Sincerely, Nurse Wire Products Inspector: Bety Alcaraz RN ([phone]) [facility] Unit: 3 [facility] CONSULT PROGon 12-04-2017 Protein mass conc HNO ID: [id number] Author: Jevon Sherman Service: Clinical Cardiology Author [...] has anginal chest pain - transfer to [facility] for viability study with MRI or PET, and consider CABG with BRUCE-LAD if there is evidence of viability - continue aspirin and statin - continue ACEI - continue metoprolol - smoking cessation ? SIGNATURE: Jevon Sherman MD PATIENT NAME: Trenton Jackson DATE: December 04, 2017 TIME: 2:26 PM PAGER/CONTACT #: Normal [facility] Comp Metabolic Panelon 12-04 Albumin mass conc 3.3 g/dL Low 3.9-4.9 [facility] Comment on above: Performed By: #### C BCDIF, PT, PTT, CMP #### [facility] [address] [place] [address] ALP enzyme act/vol 77 U/L Normal 32-117 [facility] Comment on above: Performed By: #### C BCDIF, PT, PTT, CMP #### [facility] [address] [place] [address] ALT enzyme act/vol 13 U/L Normal 7-38 [facility] Comment on above: Performed By: #### C BCDIF, PT, PTT, CMP #### [facility] [address] [place] [address] Anion gap molar conc 10 mmol/L Normal 9-18 [facility] Comment on above: Performed By: #### C BCDIF, PT, PTT, CMP #### [facility] [address] [place] [address] AST enzyme act/vol 15 U/L Normal 13-35 [facility] Comment on above: Performed By: #### C BCDIF, PT, PTT, CMP #### [facility] [address] [place] [address] Bilirubin mass conc 0.4 mg/dL Normal 0.2-1.3 [facility] Comment on above: Performed By: #### C BCDIF, PT, PTT, CMP #### [facility] [address] [place] [address] Calcium mass conc 8.7 mg/dL Normal 8.5-10.2 [facility] Comment on above: Performed By: #### C BCDIF, PT, PTT, CMP #### [facility] [address] [place] [address] Chloride molar conc 101 mmol/L Normal 97-105 [facility] Comment on above: Performed By: #### C BCDIF, PT, PTT, CMP #### [facility] [address] CO2 molar conc 29 mmol/L Normal 22-30 [facility] Comment on above: Performed By: #### C BCDIF, PT, PTT, CMP #### [facility] [address] [address] Creatinine mass conc 0.66 mg/dL Normal 0.58-0.96 [facility] Comment on above: Performed By: #### C BCDIF, PT, PTT, CMP #### [facility] [address] [address] eGFR- Amer. >60 Normal [facility] Comment on above: Performed By: #### C BCDIF, PT, PTT, CMP #### [facility] [address] [place] [address] GFR/1.73 sq M predicted among non-blacks MDRD vol rate/area (S/P/Bld) mL/min/{1.73_m2} Normal [facility] Comment on above: Result Comment: eGFR (Estimated [...] #### C BCDIF, PT, PTT, CMP #### [facility] [address] [address] Glucose mass conc 88 mg/dL Normal 74-99 [facility] Comment on above: Result Comment: The [place] [employer] (ADA) provides guidance for cutoff [...] Standards of Medical Care in Diabetes 2016, [place] [employer]. Diabetes Care. 2016.39(Suppl 1). Performed By: #### C BCDIF, PT, PTT, CMP #### [facility] [address] [place] [address] Potassium molar conc 4.1 mmol/L Normal 3.7-5.1 [facility] Comment on above: Performed By: #### C BCDIF, PT, PTT, CMP #### [facility] [address] [place] [address] Protein mass conc 5.9 g/dL Low 6.3-8.0 [facility] Comment on above: Performed By: #### C BCDIF, PT, PTT, CMP #### [facility] [address] [place] [address] Sodium molar conc 140 mmol/L Normal 136-144 [facility] Comment on above: Performed By: #### C BCDIF, PT, PTT, CMP #### [facility] [address] [place] [address] Urea nitrogen mass conc 12 mg/dL Normal 7-21 M [facility] Comment on above: Performed By: #### C BCDIF, PT, PTT, CMP #### [facility] [address] [place] [address] Magnesiumon 12-04-2017 Magnesium mass conc 1.8 mg/dL Normal 1.7-2.3 [facility] Comment on above: Performed By: #### C BCDIF, PT, PTT, CMP #### [facility] [address] [place] [address] NURSING PROGon 12-04-2017 Protein mass conc HNO ID: [id number] Author: Patricio (Rn) CHAYITO Tate Service: Nursing Author Type: Registered Nurse Type: Nursing Progress Note Filed: 12/04/2017 10:43 PM Note Text: Nursing Progress Note Patient Name: Trenton Jackson [id number] Daily Note: 1900: Assumed care of pt. [...] note was completed by: Patricio Tate RN [facility] Protein mass conc HNO ID: [id number] Author: Melissa AgudeloRn) CHAYITO Jeffries Service: Nursing Author Type: Registered Nurse Type: Nursing Progress Note Filed: 12/04/2017 3:11 PM Note Text: Nursing Progress Note Patient Name: Trenton Jackson Patient Location: [place] [facility] [facility] [facility] 1500 Final air removed from right radial site. No bleeding noted. Bandaid applied. Report called to Jazzmine STRATTON on 3S. Pt transferred to floor on bed accomp by staff in stable cond. This note was completed by: Melissa Jeffries RN [facility] Protein mass conc HNO ID: [id number] Author: Brett AgudeloRn) CHAYITO Castorena Service: Nursing Author Type: Registered Nurse Type: Nursing Progress Note Filed: 12/04/2017 2:18 PM Note Text: Pt eating and drinking denies any complaints at this time. @1417 Report to Melissa STRATTON. [facility] Protein mass conc HNO ID: [id number] Author: Jazzmine Solano) CHAYITO Galvan Service: Nursing Author Type: Registered Nurse Type: Nursing Progress Note Filed: 12/04/2017 6:40 PM Note Text: Nursing Progress Note Patient Name: Trenton Jackson Patient Location: [place] [facility] [facility] Daily Note: 0730: Assumed care of pt. [...] was completed by: Jazzmine Galvan RN Normal [facility] PROCEDUREon 12-04-2017 Protein mass conc HNO ID: [id number] Author: Jevon Sherman Service: Clinical Cardiology Author Type: Physician Type: Procedures Filed: 12/10/2017 1:25 AM Note Text: [facility]- Cardiac Catheterization TRENTON JACKSON : 1970 AGE: 47 SEX: F ACCTNUM: [id number] [facility] [place]: [facility] LOCATION: [id number] ATTENDING PHYSICIAN: DEX HANDY SURGEON: Jevon Sherman [...] PROCEDURE: The patient was brought to the director of labor and delivery, and she had mild chest pain at [...] sheath, and this was upsized to a 5-[place] short sheath. We then advanced a [place] catheter over a [place] wire to the [...] 5. The patient will be transferred to [facility] for assessment of myocardial viability and consideration of revascularization of the LAD possibly with bypass grafting. Jevon Sherman M.D. Cardiovascular Medicine [id number] [facility] PROGRESSon 12-04-2017 Protein mass conc HNO ID: [id number] Author: Jevon Sherman Service: Clinical Cardiology Author [...] TIME: 11:14 AM The following are the [facility] Criteria for High Risk Catheterization: Patients with high-risk conditions listed above may require emergency catheter-based therapeutic interventions or open heart surgery. Hence, they shall undergo cardiac catheterization only in a catheterization laboratory that has open heart surgical support available on-site, (i.e., accessible from the catheterization laboratory or by [facility] hospital). [facility] CASE MANAGEMon 12-03-2017 CASE MANAGEM HNO ID: [id number] Author: Iqra Solano) CHAYITO Webster Service: Case [...] 03, 2017 TIME: 11:44 AM PAGER/CONTACT #: [phone] [facility] CBCon 12-03-2017 Erythrocyte distribution width Ratio (RBC) 13.2 % Normal 11.5-15.0 [facility] Comment on above: Performed By: #### C BCDIF, PT, PTT, CMP #### [facility] [address] [place] [address] Hematocrit Volume Fraction (Bld) 46.0 % Normal 36.0-46.0 [facility] Comment on above: Performed By: #### C BCDIF, PT, PTT, CMP #### [facility] [address] [address] Hemoglobin mass conc (Bld) 15.3 g/dL Normal 11.5-15.5 [facility] Comment on above: Performed By: #### C BCDIF, PT, PTT, CMP #### [facility] [address] [place] [address] MCH Entitic mass (RBC) 27.4 pG Normal 26.0-34.0 [facility] Comment on above: Performed By: #### C BCDIF, PT, PTT, CMP #### [facility] [address] [place] [address] MCHC mass conc (RBC) 33.3 g/dL Normal 30.5-36.0 [facility] Comment on above: Performed By: #### C BCDIF, PT, PTT, CMP #### [facility] [address] [place] [address] MCV Entitic volume (RBC) 82.4 fL Normal 80.0-100.0 [facility] Comment on above: Performed By: #### C BCDIF, PT, PTT, CMP #### [facility] [address] [place] [address] Platelet mean volume Entitic volume (Bld) 10.1 fL Normal 9.0-12.7 [facility] Comment on above: Performed By: #### C BCDIF, PT, PTT, CMP #### [facility] [address] [place] [address] Platelets #/vol (Bld) 224 10*3/uL Normal 150-400 [facility] Comment on above: Performed By: #### C BCDIF, PT, PTT, CMP #### [facility] [address] [place] [address] RBC #/vol (Bld) 5.58 10*6/uL High 3.90-5.20 [facility] Comment on above: Performed By: #### C BCDIF, PT, PTT, CMP #### [facility] [address] [phone] WBC #/vol (Bld) 9.13 10*3/uL Normal 3.70-11.00 [facility] Comment on above: Performed By: #### C BCDIF, PT, PTT, CMP #### [facility] [address] [phone] CONSULT PROGon 12-03-2017 Protein mass conc HNO ID: [id number] Author: Jevon Sherman Service: Clinical Cardiology Author [...] 2017 TIME: 5:25 PM PAGER/CONTACT #: Normal [facility] Comp Metabolic Panelon 12-03 Albumin mass conc 3.3 g/dL Low 3.9-4.9 [facility] Comment on above: Performed By: #### C BCDIF, PT, PTT, CMP #### [facility] [address] [place] [address] ALP enzyme act/vol 83 U/L Normal 32-117 [facility] Comment on above: Performed By: #### C BCDIF, PT, PTT, CMP #### [facility] [address] [place] [address] ALT enzyme act/vol 13 U/L Normal 7-38 [facility] Comment on above: Performed By: #### C BCDIF, PT, PTT, CMP #### [facility] [address] [place] [address] Anion gap molar conc 10 mmol/L Normal 9-18 [facility] Comment on above: Performed By: #### C BCDIF, PT, PTT, CMP #### [facility] [address] [place] [address] AST enzyme act/vol 15 U/L Normal 13-35 [facility] Comment on above: Performed By: #### C BCDIF, PT, PTT, CMP #### [facility] [address] [place] [address] Bilirubin mass conc 0.5 mg/dL Normal 0.2-1.3 [facility] Comment on above: Performed By: #### C BCDIF, PT, PTT, CMP #### [facility] [address] [place] [address] Calcium mass conc 9.0 mg/dL Normal 8.5-10.2 [facility] Comment on above: Performed By: #### C BCDIF, PT, PTT, CMP #### [facility] [address] [facility] [phone] Chloride molar conc 99 mmol/L Normal 97-105 [facility] Comment on above: Performed By: #### C BCDIF, PT, PTT, CMP #### [facility] [address] [facility] [phone] CO2 molar conc 30 mmol/L Normal 22-30 [facility] Comment on above: Performed By: #### C BCDIF, PT, PTT, CMP #### [facility] [address] [facility] [phone] Creatinine mass conc 0.70 mg/dL Normal 0.58-0.96 [facility] Comment on above: Performed By: #### C BCDIF, PT, PTT, CMP #### [facility] [address] [phone] eGFR- Amer. >60 Normal [facility] Comment on above: Performed By: #### C BCDIF, PT, PTT, CMP #### [facility] [address] [phone] GFR/1.73 sq M predicted among non-blacks MDRD vol rate/area (S/P/Bld) mL/min/{1.73_m2} Normal [facility] Comment on above: Result Comment: eGFR (Estimated [...] #### C BCDIF, PT, PTT, CMP #### [facility] [address] [facility] [phone] Glucose mass conc 76 mg/dL Normal 74-99 [facility] Comment on above: Result Comment: The [place] Diabetes Association (ADA) provides guidance for cutoff [...] Standards of Medical Care in Diabetes 2016, [place] [employer]. Diabetes Care. 2016.39(Suppl 1). Performed By: #### C BCDIF, PT, PTT, CMP #### [facility] [address] [place] [address] Potassium molar conc 4.3 mmol/L Normal 3.7-5.1 [facility] Comment on above: Performed By: #### C BCDIF, PT, PTT, CMP #### [facility] [address] [place] [address] Protein mass conc 6.0 g/dL Low 6.3-8.0 [facility] Comment on above: Performed By: #### C BCDIF, PT, PTT, CMP #### [facility] [address] [place] [address] Sodium molar conc 139 mmol/L Normal 136-144 [facility] Comment on above: Performed By: #### C BCDIF, PT, PTT, CMP #### [facility] [address] [place] [address] Urea nitrogen mass conc 11 mg/dL Normal 7-21 M [facility] Comment on above: Performed By: #### C BCDIF, PT, PTT, CMP #### [facility] [address] [place], [place] [address] Magnesiumon 12-03-2017 Magnesium mass conc 1.8 mg/dL Normal 1.7-2.3 [facility] Comment on above: Performed By: #### C BCDIF, PT, PTT, CMP #### [facility] [address] [place], [place] [id number] [place] CARDIAC PERF STRESS/EXERC ISEon 12-03-2017 NM [...] 60 minutes later. See administered doses below. [facility] Date of service: 12/03/2017 11:12:42 AM Indication: [...] ST segment response. Stress complications: none. Final Police Captain: JEREMIAS Transcribe Date/Time: Dec 03 2017 11:12A Dictated by : JEVON SHERMAN MD This examination was interpreted and the report reviewed and electronically signed by: JEVON SHERMAN MD on Dec 03 2017 5:11PM EST [id number] [facility] NUCLEAR STRESS LEXISCAN (CAR D)on 12-03-2017 NUCLEAR STRESS LEXISCAN (CARD) NAME : TRENTON JACKSON PID : [id number] : 1970 Gender : Female Race : ORD : [id number] Procedure Date : Dec 03 2017 12:15:58 Edit Date : Dec 17 2017 14:02:26 Conclusions:PLEASE REFER TO IMAGING SECTION IN [facility] FOR COMPLETE INTERPRETATION OF STRESS TEST AND MYOCARDIAL PERFUSION IMAGING Protocol Name : LEXISCAN Time In Exercise Phase : 00:06:00 Max. Systolic BP : 137 mmHg Max Diastolic BP : 70 mmHg Max Heart Rate : 118 BPM Max Predicted Heart Rate : 174 BPM Recovery ECG Response (OLD) : Reason For Termination : End of Protocol Test Reason : Chest Pain Location :[id number] Overread By : JEVON SHERMAN M.D. Edited By : Violet Mcnulty Referred By : , Acquired by : [facility] NUCLEAR STRESS TEST EXERCISE (CARD)on 12-03-2017 NUCLEAR STRESS TEST EXERCISE (CARD) NAME : TRENTON JACKSON PID : [id number] : 1970 Gender : Female Race : ORD : [id number] Procedure Date : Dec 03 2017 11:56:57 Edit Date : Dec 17 2017 14:02:19 Conclusions:PLEASE REFER TO IMAGING SECTION IN [facility] FOR COMPLETE INTERPRETATION OF STRESS TEST AND [...] Treadmill Test Reason : Chest Pain Location :[id number] Overread By : JEVON SHERMAN M.D. Edited By : Violet Mcnulty Referred By : , Acquired by : [facility] NURSING PROGon 12-03-2017 Protein mass conc HNO ID: [id number] Author: Barb AgudeloRn) CHAYTIO Ramey Service: (none) Author Type: Registered Nurse Type: Nursing Progress Note Filed: 12/03/2017 9:59 PM Note Text: Nursing Progress Note Patient Name: Trenton Jackson Patient Location: AR4/[id number] Daily Note: 2155- Dr Nava updated on pt medication request and HS blood sugar. New orders received. This note was completed by: Barb Ramey RN [facility] Protein mass conc HNO ID: [id number] Author: Jazzmine (Rn) CHAYITO Galvan Service: Nursing Author Type: Registered Nurse Type: Nursing Progress Note Filed: 12/03/2017 6:59 PM Note Text: Nursing Progress Note Patient Name: Trenton Jackson Patient [facility][id number]- Daily Note: 0700: Assumed care of pt. [...] note was completed by: Jazzmine Galvan RN [facility] PROCEDUREon 12-03-2017 Protein mass conc HNO ID: [id number] Author: Jevon Sherman Service: Clinical Cardiology Author Type: Physician Type: Procedures Filed: 12/10/2017 1:16 AM Note Text: [facility]- Stress Test TRENTON JACKSON : 1970 AGE: 47 SEX: F ACCTNUM: [id number] HOS[facility] [place]: [facility] LOCATION: [address] ATTENDING PHYSICIAN: Dex Fernandez M.D. DATE OF [...] nuclear imaging. Jevon Sherman M.D. Cardiovascular Medicine MK:[id number] /[id number] [facility] PROGRESSon 12-03-2017 Protein mass conc HNO ID: [id number] Author: Dex Farooq) Lizz Service: Hospital Medicine Author Type: Physician Type: Progress Notes Filed: 12/03/2017 9:03 PM Note Text: HOSPITAL MEDICINE PROGRESS NOTE Name: Trenton Jackson SERVICE DATE: 12/03/2017 SERVICE TIME: 8:36 PM LOCATION / ROOM: [address] [id number] Hospital Medicine/Primary Attending: Dex Handy MD NIGHT COVERAGE BETWEEN 5.30P-7.30A Page 70733 ASSESSMENT AND PLAN Active Hospital Problems Diagnosis [...] might need to be transferred to [facility] [place] for further work up - pending LV [...] December 03, 2017 TIME: 8:36 PM Normal [facility] Sed Rate Westergrenon 2017 Sed Rate Westergren Unable to assay. No specimen received. Normal 0-20 [facility] Comment on above: Performed By: #### C BCDIF, PT, PTT, CMP #### [facility] [address] [place] [address] C-Reactive Proteinon 018 CRP mass conc 0.2 mg/dL Normal <0.9 [facility] Comment on above: Performed By: #### C BCDIF, PT, PTT, CMP #### [facility] [address] [place] [address] CBCon 12-02-2017 Erythrocyte distribution width Ratio (RBC) 13.4 % Normal 11.5-15.0 [facility] Comment on above: Performed By: #### C BCDIF, PT, PTT, CMP #### [facility] [address] [place] [address] Hematocrit Volume Fraction (Bld) 48.7 % High 36.0-46.0 [facility] Comment on above: Performed By: #### C BCDIF, PT, PTT, CMP #### [facility] [address] [place] [address] Hemoglobin mass conc (Bld) 16.9 g/dL High 11.5-15.5 [facility] Comment on above: Performed By: #### C BCDIF, PT, PTT, CMP #### [facility] [address] [place] [address] MCH Entitic mass (RBC) 27.6 pG Normal 26.0-34.0 [facility] Comment on above: Performed By: #### C BCDIF, PT, PTT, CMP #### [facility] [address] [place] [address] MCHC mass conc (RBC) 34.7 g/dL Normal 30.5-36.0 [facility] Comment on above: Performed By: #### C BCDIF, PT, PTT, CMP #### [facility] [address] [place] [address] MCV Entitic volume (RBC) 79.4 fL Low 80.0-100.0 [facility] Comment on above: Performed By: #### C BCDIF, PT, PTT, CMP #### [facility] [address] [place] [address] Platelet mean volume Entitic volume (Bld) 10.7 fL Normal 9.0-12.7 [facility] Comment on above: Performed By: #### C BCDIF, PT, PTT, CMP #### [facility] [address] [place] [address] Platelets #/vol (Bld) 215 10*3/uL Normal 150-400 [facility] Comment on above: Performed By: #### C BCDIF, PT, PTT, CMP #### [facility] [address] [place] [address] RBC #/vol (Bld) 6.13 10*6/uL High 3.90-5.20 [facility] Comment on above: Performed By: #### C BCDIF, PT, PTT, CMP #### [facility] [address] [place] [address] WBC #/vol (Bld) 12.44 10*3/uL High 3.70-11.00 [facility] Comment on above: Performed By: #### C BCDIF, PT, PTT, CMP #### [facility] [address] [place] [address] CONSULT PROGon 12-02-2017 Protein mass conc HNO ID: [id number] Author: Jevon Sherman Service: Clinical Cardiology Author [...] 2017 TIME: 4:49 PM PAGER/CONTACT #: Normal [facility] Comp Metabolic Panelon 12-02 Albumin mass conc 3.2 g/dL Low 3.9-4.9 [facility] Comment on above: Performed By: #### C BCDIF, PT, PTT, CMP #### [facility] [address] [place] [address] ALP enzyme act/vol 92 U/L Normal 32-117 [facility] Comment on above: Performed By: #### C BCDIF, PT, PTT, CMP #### [facility] [address] [address] ALT enzyme act/vol 14 U/L Normal 7-38 [facility] Comment on above: Performed By: #### C BCDIF, PT, PTT, CMP #### [facility] [address] [place] [address] Anion gap molar conc 13 mmol/L Normal 9-18 [facility] Comment on above: Performed By: #### C BCDIF, PT, PTT, CMP #### [facility] [address] [place] [address] AST enzyme act/vol 23 U/L Normal 13-35 [facility] Comment on above: Result Comment: Resu lts may be falsely increased due to interference by hemolysis. Suggest reorder as clinically indicated. Performed By: #### C BCDIF, PT, PTT, CMP #### [facility] [address] [address] Bilirubin mass conc 0.7 mg/dL Normal 0.2-1.3 [facility] Comment on above: Performed By: #### C BCDIF, PT, PTT, CMP #### [facility] [address] Calcium mass conc 9.2 mg/dL Normal 8.5-10.2 [facility] Comment on above: Performed By: #### C BCDIF, PT, PTT, CMP #### [facility] [address] Chloride molar conc 99 mmol/L Normal 97-105 [facility] Comment on above: Performed By: #### C BCDIF, PT, PTT, CMP #### [facility] [address] CO2 molar conc 23 mmol/L Normal 22-30 [facility] Comment on above: Performed By: #### C BCDIF, PT, PTT, CMP #### [facility] [address] [address] Creatinine mass conc 0.61 mg/dL Normal 0.58-0.96 [facility] Comment on above: Performed By: #### C BCDIF, PT, PTT, CMP #### [facility] [address] [address] eGFR- Amer. >60 Normal [facility] Comment on above: Performed By: #### C BCDIF, PT, PTT, CMP #### [facility] [address] GFR/1.73 sq M predicted among non-blacks MDRD vol rate/area (S/P/Bld) mL/min/{1.73_m2} Normal [facility] Comment on above: Result Comment: eGFR (Estimated [...] #### C BCDIF, PT, PTT, CMP #### [facility] [address] Glucose mass conc 185 mg/dL High 74-99 [facility] Comment on above: Result Comment: The [place] Diabetes Association (ADA) provides guidance for cutoff [...] Standards of Medical Care in Diabetes 2016, [place] [employer]. Diabetes Care. 2016.39(Suppl 1). Performed By: #### C BCDIF, PT, PTT, CMP #### [facility] [address] [place] [address] Potassium molar conc 4.8 mmol/L Normal 3.7-5.1 [facility] Comment on above: Performed By: #### C BCDIF, PT, PTT, CMP #### [facility] [address] [place] [address] Protein mass conc 6.2 g/dL Low 6.3-8.0 [facility] Comment on above: Performed By: #### C BCDIF, PT, PTT, CMP #### [facility] [address] [place] [address] Sodium molar conc 135 mmol/L Low 136-144 [facility] Comment on above: Performed By: #### C BCDIF, PT, PTT, CMP #### [facility] [address] [place], [place] [id number] Urea nitrogen mass conc 8 mg/dL Normal 7-21 M [facility] Comment on above: Performed By: #### C BCDIF, PT, PTT, CMP #### [facility] [address] [place], [place] [id number] Magnesiumon 12-02-2017 Magnesium mass conc 1.9 mg/dL Normal 1.7-2.3 [facility] Comment on above: Performed By: #### C BCDIF, PT, PTT, CMP #### [facility] [address] [facility] [phone] NURSING PROGon 12-02-2017 Protein mass conc HNO ID: [id number] Author: Flora (Rn) CHAYITO Varela Service: (none) Author Type: Registered Nurse Type: Nursing Progress Note Filed: 12/03/2017 4:25 AM Note Text: Nursing Progress Note Patient Name: Trenton Jackson Patient [facility][id number]-9114-2 Daily Note:2009-Pt on phone, requesting pain med, [...] note was completed by: Flora Varela RN [facility] Protein mass conc HNO ID: [id number] Author: Sara AgudeloRn) CHAYITO Johnson Service: Nursing Author Type: Registered Nurse Type: Nursing Progress Note Filed: 12/02/2017 6:26 PM Note Text: Nursing Progress Note Patient Name: Trenton Jackson Patient [facility]: [facility]VH-7Y-5025- Daily Note:1555 - Assumed care of pt. [...] note was completed by: Sara Johnson RN [facility] Protein mass conc HNO ID: [id number] Author: Jonna AgudeloRn) CHAYITO Boothe Service: Nursing Author Type: Registered Nurse Type: Nursing Progress Note Filed: 12/02/2017 2:09 PM Note Text: Nursing Progress Note Patient Name: Trenton Jackson Patient Location: [facility]4/WQ-3N-7609-2 Daily Note: 0715: Assumed care of patient. [...] note was completed by: Jonna Boothe RN [facility] Protein mass conc HNO ID: [id number] Author: Patricio Solano) CHAYITO Tate Service: Nursing Author Type: Registered Nurse Type: Nursing Progress Note Filed: 12/02/2017 4:59 AM Note Text: Nursing Progress Note Patient Name: Trenton Jackson Patient [facility]/GC-1M-0455-2 Event(s) / Intervention Note: The patient was [...] note was completed by: Patricio Tate RN [facility] PROGRESSon 12-02-2017 Protein mass conc HNO ID: [id number] Author: Lisa Bocanegra Service: Hospital Medicine Author [...] December 02, 2017 TIME: 1:07 PM PAGER: [phone] Normal [facility] Procalcitoninon 12-02-2017 Protein mass conc g/dL Normal <0.09 [facility] Comment on above: Result Comment: For a guided interpretation of test results, please visit the Change in Procalcitonin Calculator, [email or web address]. Performed By: #### C BCDIF, PT, PTT, CMP #### [facility] [address] [phone] Sed Rate Westergrenon 2017 Sed Rate Westergren Unable to assay. Spe cimen grossly hemolyzed. Specimen may have been stored or transported frozen. Normal 0-20 [facility] Comment on above: Result Comment: Acco unt Credited Called to [id number] 7.1.18 NB Performed By: #### C BCDIF, PT, PTT, CMP #### [facility] [address] [phone] [facility] HNO ID: [id number] Author: Bety Lozada (Rn) CHAYITO Dempsey Service: Case Management Author Type: Registered Nurse Type: Care Mgt Initial Assessment Filed: 12/01/2017 9:52 AM Note Text: CARE MANAGEMENT: ASSESSMENT AND DISCHARGE PLAN SERVICE DATE: 12/01/2017 SERVICE TIME: 9:48 AM PRIMARY CARE PHYSICIAN: Uziel Conteh MD Confirmed. Likes am any day for follow ups. 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 Primary Contact: Extended Emergency Contact Information Primary Emergency Contact: Curry Jackson Jr Address: [address] [place] [address] [facility] Mobile Relation: Spouse Secondary Emergency Contact: Rebecca Dueñas Address: [place] [address] [facility] Relation: Mother Supportive: Yes Other Important Patient [...] 0 I feel financially burdened by my [id number] expenses for my prescription medication: Disagree somewhat - 0 Patient is categorized as low risk < 2 Are you interested in bedside delivery of your medications? Yes , uses [facility] Concerns: In the Last Month, Have [...] Be Determined Bedside CHAYITO Coyle SIGNATURE: Bety Dmepsey RN PATIENT NAME: Trenton Jackson DATE: December 01, 2017 TIME: 9:48 AM PAGER/CONTACT #: [phone] [facility] CONSULTon 12-01-2017 CONSULT HNO ID: [id number] Author: Jevon Sherman Service: Clinical Cardiology Author [...] associated with exertion. In the ER at [facility] yesterday she had no ischemic changes on ECG, NSR, and negative Tn. She has a history of DM, is an active smoker, and had an abnormal echocardiogram last year showing LVEF 30% with an LAD territory wall motion abnormality with a dyskinetic apex. She has not seen a press box custodian about this problem and was unaware of [...] 2017 TIME: 10:17 AM PAGER/CONTACT #: Normal [facility] Lipid Panel, Basicon 12-01- 018 Cholesterol in HDL mass conc 31 mg/dL Low >39 [facility] Comment on above: Result Comment: 40-5 9 mg/dL, Acceptable >59 mg/dL, High: Negative risk factor for coronary heart disease <40 mg/dL, Low: Positive risk factor for coronary heart disease Performed By: #### C BCDIF, PT, PTT, CMP #### [facility] [address] [place], [place] [id number] Cholesterol in LDL mass conc 110 mg/dL High <100 [facility] Comment on above: Result Comment: <100 mg/dL, Optimal 100-129 mg/dL, Near optimal/above optimal 130-159 mg/dL, Borderline high 160-189 mg/dL, High >189 mg/dL, Very high Secondary prevention optimal LDL Cholesterol levels are recommended to be < 70 mg/dL Performed By: #### C BCDIF, PT, PTT, CMP #### [facility] [address] [place], [place] [id number] Cholesterol mass conc 177 mg/dL Normal <200 [facility] Comment on above: Result Comment: <200 mg/dL, Desirable 200-239 mg/dL, Borderline high >239 mg/dL, High Performed By: #### C BCDIF, PT, PTT, CMP #### [facility] [address] Fasting Time Unknown Normal [facility] Comment on above: Performed By: #### C BCDIF, PT, PTT, CMP #### [facility] [address] [place], [place] [id number] LDL:HDL Ratio 3.55 High <2.54 [facility] Comment on above: Result Comment: Refe rence: 1. National Cholesterol Education Program ATP III Guideline At-A-Glance Quick Desk Reference: National Heart, Lung, and Blood [place]. National Institutes of Health. 2001: NIH Publication No. 01-3305. 2. An International Atherosclerosis Society position paper: global recommendations for the management of dyslipidemia: executive summary, Atherosclerosis. 2014: 232(2):410-413. Performed By: #### C BCDIF, PT, PTT, CMP #### [facility] [address] [place] [address] Non HDL Cholesterol 146 mg/dL High <130 [facility] Comment on above: Result Comment: <130 mg/dL, Optimal 130-159 mg/dL, Near optimal/above optimal 160-189 mg/dL, Borderline high 190-219 mg/dL, High >219 mg/dL, Very high Secondary prevention optimal non HDL Cholesterol levels are recommended to be < 100 mg/dL Performed By: #### C BCDIF, PT, PTT, CMP #### [facility] [address] [place] [address] TC:HDL Ratio 5.71 High <5.10 [facility] Comment on above: Performed By: #### C BCDIF, PT, PTT, CMP #### [facility] [address] [place] [address] Triglyceride mass conc 179 mg/dL High <150 [facility] Comment on above: Result Comment: <150 mg/dL, Normal 150-199 mg/dL, Borderline high 200-499 mg/dL, High >499 mg/dL, Very high Performed By: #### C BCDIF, PT, PTT, CMP #### [facility] [address] [place] [address] VLDL Cholesterol 36 mg/dL High <30 [facility] Comment on above: Performed By: #### C BCDIF, PT, PTT, CMP #### [facility] [address] [place] [address] NURSING PROGon 12-01-2017 Protein mass conc HNO ID: [id number] Author: Patricio (Rn) CHAYITO Tate Service: Nursing Author Type: Registered Nurse Type: Nursing Progress Note Filed: 12/02/2017 6:32 AM Note Text: Nursing Progress Note Patient Name: Trenton Jackson Patient Location[facility]/OC-[id number]-1000-2 Daily Note: 1915: Assumed care of pt. [...] observed sweating profusely. Glucose 84, normally 200's. Pleasants juice and johnson crackers given. Glucose up to 149. Pt feeling slightly better. Will continue to monitor. 0500: Pt observed sleeping. Unable to obtain oral or axillary temp to this point. Will obtain rectal temp. Call light within reach. This note was completed by: Patricio Tate RN [facility] Protein mass conc HNO ID: [id number] Author: Jonna (Rn) CHAYITO Boothe Service: Nursing Author Type: Registered Nurse Type: Nursing Progress Note Filed: 12/01/2017 5:58 PM Note Text: Nursing Progress Note Patient Name: Trenton Jackson Patient Location: [facility]4/[id number] Daily Note: 714: Assumed care of patient. [...] note was completed by: Jonna Boothe RN [facility] Protein mass conc HNO ID: [id number] Author: Patricio (Rn) CHAYITO Tate Service: Nursing Author Type: Registered Nurse Type: Nursing Progress Note Filed: 12/01/2017 5:01 AM Note Text: Nursing Progress Note Patient Name: Trenton Jackson [facility]4/[id number] Daily Note: 2200: Assumed care of pt. [...] note was completed by: Patricio Tate RN [facility] PROGRESSon 12-01-2017 Protein mass conc HNO ID: [id number] Author: Lisa Bocanegra Service: Hospital Medicine Author [...] 11/30/176 -- 11/30/17 2200 pneumatic compression stockings (ia,oh) VTE Prophylaxis: VTE prophylaxis appropriate SIGNATURE: Lisa Bocanegra MD PATIENT NAME: Trenton Jackson DATE: December 01, 2017 TIME: 2:46 PM PAGER: [phone] Normal [facility] Troponin Ton 12-01-2017 Troponin T.cardiac mass conc ug/L Normal 0.000-0.[address] [place] [address] Comment on above: Performed By: #### T NT ####[facility] [address] [place] [phone] Troponin T.cardiac mass conc ug/L Normal 0.000-0.[address] [place] [address] Comment on above: Performed By: #### T NT ####[facility] [address] [place] [phone] APTTon 11-30-2017 aPTT Coag time (Bld) 26.7 s Normal 23.0-32.4 [facility] Comment on above: Result Comment: Unfr actionated [...] laboratory APTT reagent in use throughout the [facility]. Performed By: #### C BCDIF, PT, PTT, CMP #### [facility] [address] [place] [address] CBC and Differentialon 11-30 Abs Baso 0.05 k/uL Normal <0.11 [facility] Comment on above: Performed By: #### C BCDIF, PT, PTT, CMP #### [facility] [address] [place] [address] Abs Brule 0.56 k/uL Normal <0.87 [facility] Comment on above: Performed By: #### C BCDIF, PT, PTT, CMP #### [facility] [address] [place] [address] Abs Neut 5.45 k/uL Normal 1.45-7.50 [facility] Comment on above: Performed By: #### C BCDIF, PT, PTT, CMP #### [facility] [address] [place] [address] Basophils/100 WBC (Bld) 0.6 % Normal [facility] Comment on above: Performed By: #### C BCDIF, PT, PTT, CMP #### [facility] [address] [place] [address] Eosinophils #/vol (Bld) 0.13 10*3/uL Normal <0.46 [facility] Comment on above: Performed By: #### C BCDIF, PT, PTT, CMP #### [facility] [address] [place] [address] Eosinophils/100 WBC (Bld) 1.4 % Normal [facility] Comment on above: Performed By: #### C BCDIF, PT, PTT, CMP #### [facility] [address] [place] [address] Erythrocyte distribution width Ratio (RBC) 13.3 % Normal 11.5-15.0 [facility] Comment on above: Performed By: #### C BCDIF, PT, PTT, CMP #### [facility] [address] [place] [address] Hematocrit Volume Fraction (Bld) 46.8 % High 36.0-46.0 [facility] Comment on above: Performed By: #### C BCDIF, PT, PTT, CMP #### [facility] [address] [place] [address] Hemoglobin mass conc (Bld) 16.2 g/dL High 11.5-15.5 [facility] Comment on above: Performed By: #### C BCDIF, PT, PTT, CMP #### [facility] [address] [place] [address] Lymphocytes #/vol (Bld) 2.83 10*3/uL Normal 1.00-4.00 [facility] Comment on above: Performed By: #### C BCDIF, PT, PTT, CMP #### [facility] [address] Lymphocytes/100 WBC (Bld) 31.4 % Normal [facility] Comment on above: Performed By: #### C BCDIF, PT, PTT, CMP #### [facility] [address] [place] [id number] MCH Entitic mass (RBC) 27.8 pG Normal 26.0-34.0 [facility] Comment on above: Performed By: #### C BCDIF, PT, PTT, CMP #### [facility] [address] [place] [phone] MCHC mass conc (RBC) 34.6 g/dL Normal 30.5-36.0 [facility] Comment on above: Performed By: #### C BCDIF, PT, PTT, CMP #### [facility] [address] [address] MCV Entitic volume (RBC) 80.4 fL Normal 80.0-100.0 [facility] Comment on above: Performed By: #### C BCDIF, PT, PTT, CMP #### [facility] [address] [place] [address] Monocytes/100 WBC (Bld) 6.2 % Normal [facility] Comment on above: Performed By: #### C BCDIF, PT, PTT, CMP #### [facility] [address] [place] [phone] Neutrophils/100 WBC (Bld) 60.4 % Normal [facility] Comment on above: Performed By: #### C BCDIF, PT, PTT, CMP #### [facility] [address] Platelet mean volume Entitic volume (Bld) 9.9 fL Normal 9.0-12.7 [facility] Comment on above: Performed By: #### C BCDIF, PT, PTT, CMP #### [facility] [address] [place] [phone] Platelets #/vol (Bld) 247 10*3/uL Normal 150-400 [facility] Comment on above: Performed By: #### C BCDIF, PT, PTT, CMP #### [facility] [address] [address] RBC #/vol (Bld) 5.82 10*6/uL High 3.90-5.20 [facility] Comment on above: Performed By: #### C BCDIF, PT, PTT, CMP #### [facility] [address] [address] WBC #/vol (Bld) 9.02 10*3/uL Normal 3.70-11.00 [facility] Comment on above: Performed By: #### C BCDIF, PT, PTT, CMP #### [facility] [address] [address] CK, Total and CKMBon 018 CK enzyme act/vol 41 U/L Low 42-196 [facility] Comment on above: Performed By: #### N TBNP, CKCKMB #### [facility] [address] [address] CK MB % CK MB % not reported with CK <100 U/L. Normal 0.0-4.0 [facility] Comment on above: Performed By: #### N TBNP, CKCKMB #### [facility] [address] [place] [address] MB 1.7 ng/mL Normal <4.3 [facility] Comment on above: Performed By: #### N TBNP, CKCKMB #### [facility] [address] [address] Comp Metabolic Panelon 11-30 Albumin mass conc 3.5 g/dL Low 3.9-4.9 [facility] Comment on above: Performed By: #### C BCDIF, PT, PTT, CMP #### [facility] [address] [address] ALP enzyme act/vol 97 U/L Normal 32-117 [facility] Comment on above: Performed By: #### C BCDIF, PT, PTT, CMP #### [facility] [address] [address] ALT enzyme act/vol 17 U/L Normal 7-38 [facility] Comment on above: Performed By: #### C BCDIF, PT, PTT, CMP #### [facility] [address] [place] [address] Anion gap molar conc 12 mmol/L Normal 9-18 [facility] Comment on above: Performed By: #### C BCDIF, PT, PTT, CMP #### [facility] [address] [address] AST enzyme act/vol 26 U/L Normal 13-35 [facility] Comment on above: Performed By: #### C BCDIF, PT, PTT, CMP #### [facility] [address] [place] [address] Bilirubin mass conc 0.7 mg/dL Normal 0.2-1.3 [facility] Comment on above: Performed By: #### C BCDIF, PT, PTT, CMP #### [facility] [address] [place] [address] Calcium mass conc 8.5 mg/dL Normal 8.5-10.2 [facility] Comment on above: Performed By: #### C BCDIF, PT, PTT, CMP #### [facility] [address] [place] [address] Chloride molar conc 102 mmol/L Normal 97-105 [facility] Comment on above: Performed By: #### C BCDIF, PT, PTT, CMP #### [facility] [address] [place] [address] CO2 molar conc 23 mmol/L Normal 22-30 [facility] Comment on above: Performed By: #### C BCDIF, PT, PTT, CMP #### [facility] [address] [place] [address] Creatinine mass conc 0.61 mg/dL Normal 0.58-0.96 [facility] Comment on above: Performed By: #### C BCDIF, PT, PTT, CMP #### [facility] [address] [place] [address] eGFR- Amer. >60 Normal [facility] Comment on above: Performed By: #### C BCDIF, PT, PTT, CMP #### [facility] [address] [place] [address] GFR/1.73 sq M predicted among non-blacks MDRD vol rate/area (S/P/Bld) mL/min/{1.73_m2} Normal [facility] Comment on above: Result Comment: eGFR (Estimated [...] #### C BCDIF, PT, PTT, CMP #### [facility] [address] [place] [address] Glucose mass conc 260 mg/dL High 74-99 [facility] Comment on above: Result Comment: The [place] Diabetes Association (ADA) provides guidance for cutoff [...] Standards of Medical Care in Diabetes 2016, [place] [employer]. Diabetes Care. 2016.39(Suppl 1). Performed By: #### C BCDIF, PT, PTT, CMP #### [facility] [address] [place] [address] Potassium molar conc 4.1 mmol/L Normal 3.7-5.1 [facility] Comment on above: Performed By: #### C BCDIF, PT, PTT, CMP #### [facility] [address] [place] [address] Protein mass conc 6.5 g/dL Normal 6.3-8.0 [facility] Comment on above: Performed By: #### C BCDIF, PT, PTT, CMP #### [facility] [address] [place] [address] Sodium molar conc 137 mmol/L Normal 136-144 [facility] Comment on above: Performed By: #### C BCDIF, PT, PTT, CMP #### [facility] [address] [place] [id number] Urea nitrogen mass conc 5 mg/dL Low 7-21 M [facility] Comment on above: Performed By: #### C BCDIF, PT, PTT, CMP #### [facility] [address] [place] [phone] ED NOTEon 11-30-2017 ED NOTE HNO ID: [id number] Author: Sara AgudeloRn) CHAYITO Bryson Service: Nursing Author Type: Registered Nurse Type: ED Notes Filed: 11/30/2017 9:26 PM Note Text: Report called to Patricio on 3S [facility] ED NOTE HNO ID: [id number] Author: Sara AgudeloRn) Braydon, RN Service: Nursing Author Type: Registered Nurse Type: ED Notes Filed: 11/30/2017 7:18 PM Note Text: Pt reports no relief of chest pain with nitro. SBP 125 to 109. [facility] ED NOTE HNO ID: [id number] Author: Sara Solano) Braydon, RN Service: Nursing Author Type: Registered Nurse Type: ED Notes Filed: 11/30/2017 6:45 PM Note Text: Pt presents to the ER tearful about being scared of chest pain she is having. Onset was 0200 this a.m. She was seen at [facility] ER earlier today and advised to be admitted for observation. Pt states she wanted to drive herself in after settling family arrangements. She indicates mid-sternal pain that is stabbing, aching, sharp, dull, and pressure all at the same time. She was given 4 baby ASA and morphine at [facility], per pt. Medic at the bedside to lab and line. [facility] ED NOTE HNO ID: [id number] Author: Evelyne AgudeloRn) Vivien RN Service: (none) Author Type: Registered Nurse Type: ED Notes Filed: 11/30/2017 6:13 PM Note Text: Pt presents to ED with c/o chest pain. Pt explains she was seen at [facility] ED earlier today and Ed wanted to transfer her to [place] for obs but refused at that time Normal [facility] ED PROV NOTEon 11-30-2017 Protein mass conc HNO ID: [id number] Author: Rafy Cavanaugh III Service: (none) Author Type: Physician Director Appointment Type: ED Provider Notes Filed: 11/30/2017 9:05 PM Note Text: ED Provider Note Patient Name: Trenton Jackson SERVICE DATE: 11/30/17 History Patient presents with: Chest Pain ca HPI: 47-year-old female with a history of diabetes, hyperlipidemia, hypertension, psychiatric disorder, diverticulitis, ejection fraction of 35 and 35% presents to the emergency department for evaluation of chest pain. The patient was in [facility] ED earlier and was seen and evaluated [...] Abs Lymph 2.83 1.00 - 4.00 k/uL Brule% 6.2 % Abs Brule 0.56 <0.87 k/uL Eosin% 1.4 % Abs [...] Other: No acute osseous abnormality is identified. Police Captain: GEORGE Transcribe Date/Time: Nov 30 2017 7:15P [...] of the patient and have reviewed the PA/HYDROLOGIST note. My jones findings include: History - Ms. Jackson is a 47 yo F w/ h/o HTN and hyperlipidemia and DM and smoking, likely TN (EF lower and ? Dyskinesis in LAD) w/out rx previously, now here w/ chest pain/dyspnea/LH/nausea, intermittently sweaty, nearly 24 hrs now. Went to [facility] trop initially ok, ECG NSST changes, advised [...] 7:05 PM Rafy Cavanaugh III 11/30/172104 Normal [facility] HISTORY PHYSICALon HISTORY PHYSICAL HNO ID: [id number] Author: Fercho Osborne Service: Hospital Medicine Author Type: Physician Type: HANDP Filed: 11/30/2017 10:37 PM Note Text: DEPARTMENT OF HOSPITAL MEDICINE HISTORY AND PHYSICAL EXAM SERVICE DATE: 11/30/2017 SERVICE TIME: 9:48 PM Primary Care Physician: Uziel Conteh MD NIGHT AND WEEKEND COVERAGE: Nights: Please contact pager [phone]. Subjective HPI 47 Y F with PMH of diabetes, hyperlipidemia, hypertension, anxiety, depression, H/O pericardial effusion, systolic dysfunction, EF of 35 and 35% in 03/20, presents to the ED for evaluation of chest pain. The patient was seen in [facility] ED earlier today and they wanted to [...] CXR unremarkable Never Had stress test or [facility] Had abnormal ECHO in mar 2017 [...] 30, 2017 TIME: 9:48 PM PAGER/CONTACT #: [phone] Normal [facility] HOSPon 11-30-2017 HOSP Patient:Olamide Jackson MRN: Height:5' [...] % 12/04/2017 46.0 36.0 Progress Notes (): Evelyne Puga, RN, RN 11/30/2017 6:13 PM Signed Pt presents to ED with c/o chest pain. Pt explains she was seen at [facility] ED earlier today and Ed wanted to transfer her to [place] for obs but refused at that time [...] of chest pain. The patient was in [facility] ED earlier and was seen and evaluated [...] Abs Lymph 2.83 1.00 - 4.00 k/uL Brule% 6.2 % Abs Brule 0.56 <0.87 k/uL Eosin% 1.4 % Abs [...] Other: No acute osseous abnormality is identified. Police Captain: [facility] Transcribe Date/Time: Nov 30 2017 7:15P Dictated [...] of the patient and have reviewed the PA/HYDROLOGIST note. My jones findings include: History - Ms. Jackson is a 47 yo F w/ h/o HTN and hyperlipidemia and DM and smoking, likely TN (EF lower and ? Dyskinesis in LAD) w/out rx previously, now here w/ chest pain/dyspnea/LH/nausea, intermittently sweaty, nearly 24 hrs now. Went to [facility] trop initially ok, ECG NSST changes, advised [...] 0200 this a.m. She was seen at [facility] ER earlier today and advised to be admitted for observation. Pt states she wanted to drive herself in after settling family arrangements. She indicates mid-sternal pain that is stabbing, aching, sharp, dull, and pressure all at the same time. She was given 4 baby ASA and morphine at [facility], per pt. Medic at the bedside to [...] AND WEEKEND COVERAGE: Nights: Please contact pager [phone]. Subjective HPI 47 Y F with PMH of diabetes, hyperlipidemia, hypertension, anxiety, depression, H/O pericardial effusion, systolic dysfunction, EF of 35 and 35% in 03/20, presents to the ED for evaluation of chest pain. The patient was seen in [facility] ED earlier today and they wanted to [...] CXR unremarkable Never Had stress test or [facility] Had abnormal ECHO in mar 2017 [...] 30, 2017 TIME: 9:48 PM PAGER/CONTACT #: [phone] Patricio Tate, RN, RN 12/01/2017 5:01 AM Addendum Nursing Progress Note Patient Name: Trenton Jackson Patient [facility]/[id number] Daily Note: 2200: Assumed care of pt. [...] Note Patient Name: Trenton Jackson Patient Location: [facility]/[id number] Daily Note: 0715: Assumed care of patient. 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 Primary Contact: Extended Emergency Contact Information Primary Emergency Contact: Curry Jackson Jr Address: [address] [place] [address] [facility] Mobile Relation: Spouse Secondary Emergency Contact: Rebecca Dueñas Address: [place] [address] [facility] Relation: Mother Supportive: Yes Other Important Patient [...] 0 I feel financially burdened by my [id number] expenses for my prescription medication: Disagree somewhat - 0 Patient is categorized as low risk < 2 Are you interested in bedside delivery of your medications? Yes , uses [facility] Concerns: In the Last Month, Have [...] 01, 2017 TIME: 9:48 AM PAGER/CONTACT #: [phone] Jevon Sherman MD 12/01/2017 10:32 AM Signed [...] associated with exertion. In the ER at [facility] yesterday she had no ischemic changes on ECG, NSR, and negative Tn. She has a history of DM, is an active smoker, and had an abnormal echocardiogram last year showing LVEF 30% with an LAD territory wall motion abnormality with a dyskinetic apex. She has not seen a press box custodian about this problem and was unaware of [...] 11/30/176 -- 11/30/17 2200 pneumatic compression stockings (ia,oh) VTE Prophylaxis: VTE prophylaxis appropriate SIGNATURE: Lisa Bocanegra MD PATIENT NAME: Trenton Jackson DATE: December 01, 2017 TIME: 2:46 PM PAGER: [phone] Patricio Tate, RN, RN 12/02/2017 6:32 AM Addendum Nursing Progress Note Patient Name: Trenton Jackson Patient [facility]: [facility]/IH-[id number]-1053-2 Daily Note: 1915: Assumed care of pt. [...] observed sweating profusely. Glucose 84, normally 200's. Pleasants juice and johnson crackers given. Glucose up [...] Note Patient Name: Trenton Jackson [facility]/JJ-0M-3013-2 Event(s) / Intervention Note: The patient was [...] Note Patient Name: Trenton Jackson Patient Location: [facility]/TM-6O-6080-2 Daily Note: 0715: Assumed care of patient. [...] December 02, 2017 TIME: 1:07 PM PAGER: [phone] Previous Version Sara Johnson, RN, RN 12/02/2017 6:26 PM Addendum Nursing Progress Note Patient Name: Trenton Jackson Patient Location: [place] [id number] Daily Note:1555 - Assumed care of pt. [...] Note Patient Name: Trenton Jackson Patient Location: [facility]ZQ-2H-5671- Daily Note:2009-Pt on phone, requesting pain med, [...] CHAYITO López MD 12/03/2017 8:34 PM Unsigned [employer] [facility]- Stress Test TRNETON JACKSON : 1970 AGE: 47 SEX: F ACCTNUM: [id number] [facility]: [facility] LOCATION: [id number] ATTENDING PHYSICIAN: Dex Fernandez M.D. DATE OF [...] nuclear imaging. Jevon Sherman M.D. Cardiovascular Medicine [id number] /[id number] Jazzmine Galvan RN, RN 12/03/2017 6:59 PM Addendum Nursing Progress Note Patient Name: Trenton Jackson Patient Location: [place] [address]/[id number] Daily Note: 0700: Assumed care of pt. [...] 03, 2017 TIME: 11:44 AM PAGER/CONTACT #: [phone] Jevon Sherman MD 12/03/2017 5:30 PM Signed [...] 12/03/17 0605 12/02/17 0724 12/01/17 0755 11/30/17 6585 CK -- -- -- -- -- 41* [...] SERVICE TIME: 8:36 PM LOCATION / ROOM: [place] [place] [id number] Hospital Medicine/Primary Attending: Dex Handy MD NIGHT COVERAGE BETWEEN 5.30P-7.30A Page [id number] ASSESSMENT AND PLAN Active Hospital Problems Diagnosis [...] Patient might need to be transferred to [facility] for further work up - pending LV [...] Note Patient Name: Trenton Jackson Patient Location: [address]- Daily Note: 2155- Dr Nava updated [...] TIME: 11:14 AM The following are the [facility] Criteria for High Risk Catheterization: Patients with high-risk conditions listed above may require emergency catheter-based therapeutic interventions or open heart surgery. Hence, they shall undergo cardiac catheterization only in a catheterization laboratory that has open heart surgical support available on-site, (i.e., accessible from the catheterization laboratory or by [facility]). Progress Notes (INTM AG LODI ): Bhumi Junior LPN 11/23/2017 9:11 AM Signed Message left on pt's voicemail following up on ER visit 11/20/17. Requested return call for update, to schedule appt, if pt desires. Bhumi Junior LPN Normal [facility] High Sens Troponin Ton 11-30 High Sensitivity THEO 9 ng/L Normal <12 [facility] Comment on above: Result Comment: When assessing [...] day MACE. Performed By: #### H STNT ####[facility] [address] [place], [place] [id number] High Sensitivity THEO 10 ng/L Normal <12 [facility] Comment on above: Result Comment: When assessing [...] MACE. Performed By: #### H STNT #### [facility] [address] [place] [address] NT Pro BNPon 11-30-2017 Protein mass conc 517 pg/mL High <125 [facility] Comment on above: Performed By: #### N TBNP, CKCKMB #### [facility] [address] [facility] [phone] Protimeon 11-30-2017 Prothrombin time (PT) Coag time (PPP) 10.2 s Normal 9.7-13.0 [facility] Comment on above: Performed By: #### C BCDIF, PT, PTT, CMP #### [facility] [address] [facility] [phone] Prothrombin time (PT) Coag time (PPP) 1.0 s Normal 0.9-1.3 [facility] Comment on above: Result Comment: Charissa min K Antagonist (VKA) Therapeutic Range: INR 2 to 3 (Target INR of 2.5) Note: For patients treated with VKA drugs, such as warfarin, the [employer] 2012 Guideline recommends [...] Chest 2012, 141:7S-47S Sampson SOMMERS, et al. [facility] 2017, 70: 252-289 Performed By: #### C BCDIF, PT, PTT, CMP #### [facility] [address] [facility] [phone] XR CHEST 1V FRONTAL PORTon 0 11-30-2017 [...] Other: No acute osseous abnormality is identified. Police Captain: PSCB Transcribe Date/Time: Nov 30 2017 7:15P Dictated by : BRAD BLAKE MD This examination was interpreted and the report reviewed and electronically signed by: BRAD BLAKE MD on Nov 30 2017 7:16PM EST [id number] Normal [facility] Influenza virus A and B and SARS-CoV-2 (COVID-19) Ag panel - Upper respiratory specim SARS-CoV-2 & FLU Antigen (Rapid) Influenzae A [facility] Work Phone: Vital Signs Date Time Vital Sign Value Performing Clinician Facility 12-12-2024 18:17-0400 Body temperature 98.5 [degF] Zohreh Mckeon [facility] Work Phone: 5(838)562-515413 [place] [address] 12-12-2024 18:17-0400 Diastolic blood pressure 91 mm[Hg] Zohreh Mckeon [facility] Work Phone: 6(941)767-312613 [place] [address] 12-12-2024 18:17-0400 Heart rate 97 /min Zohreh Mckeon [facility] Work Phone: 2(947)429-452174 [place] [address] 12-12-2024 18:17-0400 Respiratory rate 18 /min Zohreh Mckeon [facility] Work Phone: 4(447)692-700313 [place] [address] 12-12-2024 18:17-0400 SaO2% (BldA) [Mass fraction] 98 % Zohreh Mckeon [facility] Work Phone: 4(485)521-930413 [place] [address] 12-12-2024 18:17-0400 Systolic blood pressure 152 mm[Hg] Zohreh Mckeon [facility] Work Phone: 2(076)994-145674 [place] [address] 12-12-2024 13:08-0400 Body height 167.64 cm Zohreh Mckeon [facility] Work Phone: 0(099)809-268513 [place] [address] 09-29-2024 16:59-0400 Body temperature 97.7 [degF] [facility] Work Phone: 0(871)619-196913 [place] [address] 09-29-2024 16:59-0400 Diastolic blood pressure 80 mm[Hg] [facility] Work Phone: 3(865)603-237974 [place] [address] 09-29-2024 16:59-0400 Heart rate 133 /min [facility] Work Phone: 4(870)026-447013 [place] [address] 09-29-2024 16:59-0400 Respiratory rate 15 /min [facility] Work Phone: 4(211)826-067713 [place] [address] 09-29-2024 16:59-0400 SaO2% (BldA) [Mass fraction] 95 % [facility] Work Phone: 6(215)196-176174 [place] [address] 09-29-2024 16:59-0400 Systolic blood pressure 149 mm[Hg] [facility] Work Phone: 9(314)919-103274 [place] [address] 09-29-2024 10:16-0400 Body height 170.18 cm [facility] Work Phone: 1(444)883-735674 [place] [address] 09-29-2024 10:16-0400 Body mass index (BMI) [Ratio] 28 kg/m2 [facility] Work Phone: 9(391)016-342074 [place] [address] 09-29-2024 10:16-0400 Body weight 81.4 kg [facility] Work Phone: 5(962)171-962474 [place] [address] 09-21-2024 17:11-0400 Body temperature 97.9 [degF] [facility] Work Phone: 5(166)329-034574 [place] [address] 09-21-2024 17:11-0400 Diastolic blood pressure 102 mm[Hg] [facility] Work Phone: 5(820)228-178674 [place] [address] 09-21-2024 17:11-0400 Heart rate 110 /min [facility] Work Phone: 7(991)383-077574 [place] [address] 09-21-2024 17:11-0400 Respiratory rate 16 /min [facility] Work Phone: 9(248)642-733474 [place] [address] 09-21-2024 17:11-0400 SaO2% (BldA) [Mass fraction] 98 % [facility] Work Phone: 3(939)319-333574 [place] [address] 09-21-2024 17:11-0400 Systolic blood pressure 139 mm[Hg] [facility] Work Phone: 3(628)124-736374 [place] [address] 09-21-2024 12:16-0400 Body height 170.18 cm [facility] Work Phone: 5(583)627-034974 [place] [address] 09-21-2024 12:16-0400 Body mass index (BMI) [Ratio] 28.4 kg/m2 [facility] Work Phone: 1(270)728-712874 [place] [address] 09-21-2024 12:16-0400 Body weight 82.3 kg [facility] Work Phone: 3(959)410-218874 [place] [address] 09-16-2024 15:35-0400 Diastolic blood pressure 94 mm[Hg] [facility] Work Phone: 6(222)403-452274 [place] [address] 09-16-2024 15:35-0400 Heart rate 110 /min [facility] Work Phone: 4(744)571-622374 [place] [address] 09-16-2024 15:35-0400 SaO2% (BldA) [Mass fraction] 98 % [facility] Work Phone: 2(483)111-538774 [place] [address] 09-16-2024 15:35-0400 Systolic blood pressure 160 mm[Hg] [facility] Work Phone: 0(686)075-121674 [place] [address] 09-16-2024 14:31-0400 Body temperature 97.2 [degF] [facility] Work Phone: 5(871)394-756374 [place] [address] 09-16-2024 14:31-0400 Respiratory rate 18 /min [facility] Work Phone: 3(604)757-988774 [place] [address] 09-16-2024 03:10-0400 Body mass index (BMI) [Ratio] 28.7 kg/m2 [facility] Work Phone: 7(865)316-659174 [place] [address] 09-16-2024 03:10-0400 Body weight 83.1 kg [facility] Work Phone: 6(624)172-363174 [place] [address] 09-11-2024 10:56-0400 Body height 170.18 cm [facility] Work Phone: 4(308)469-179874 [place] [address] 09-07-2024 21:00-0400 Diastolic blood pressure 79 mm[Hg] [facility] Work Phone: 8(049)071-320374 [place] [address] 09-07-2024 21:00-0400 Heart rate 101 /min [facility] Work Phone: 3(885)914-671374 [place] [address] 09-07-2024 21:00-0400 Respiratory rate 10 /min [facility] Work Phone: 4(265)856-460374 [place] [address] 09-07-2024 21:00-0400 SaO2% (BldA) [Mass fraction] 99 % [facility] Work Phone: 4(595)456-258674 [place] [address] 09-07-2024 21:00-0400 Systolic blood pressure 143 mm[Hg] [facility] Work Phone: 1(434)834-949574 [place] [address] 09-07-2024 15:52-0400 Body height 170.18 cm [facility] Work Phone: 6(277)035-829574 [place] [address] 09-07-2024 15:52-0400 Body mass index (BMI) [Ratio] 26.9 kg/m2 [facility] Work Phone: 0(694)725-644974 [place] [address] 09-07-2024 15:52-0400 Body temperature 97.4 [degF] [facility] Work Phone: 7(799)876-418474 [place] [address] 09-07-2024 15:52-0400 Body weight 77.9 kg [facility] Work Phone: 1(785)512-606174 [place] [address] 09-05-2024 15:24-0400 Body temperature 97.7 [degF] [facility] Work Phone: 0(240)140-478974 [place] [address] 09-05-2024 15:24-0400 Diastolic blood pressure 62 mm[Hg] [facility] Work Phone: 5(620)631-098974 [place] [address] 09-05-2024 15:24-0400 Heart rate 90 /min [facility] Work Phone: 7(577)129-261874 [place] [address] 09-05-2024 15:24-0400 Respiratory rate 15 /min [facility] Work Phone: 9(418)196-432574 [place] [address] 09-05-2024 15:24-0400 SaO2% (BldA) [Mass fraction] 96 % [facility] Work Phone: 4(621)743-195674 [place] [address] 09-05-2024 15:24-0400 Systolic blood pressure 100 mm[Hg] [facility] Work Phone: 6(486)271-645274 [place] [address] 09-05-2024 10:29-0400 Body height 170.18 cm [facility] Work Phone: 9(876)661-236774 [place] [address] 09-05-2024 10:29-0400 Body mass index (BMI) [Ratio] 27.2 kg/m2 [facility] Work Phone: 7(965)192-129674 [place] [address] 09-05-2024 10:29-0400 Body weight 78.9 kg [facility] Work Phone: 8(200)784-084474 [place] [address] 09-02-2024 12:46-0400 Body temperature 98 [degF] [facility] Work Phone: 9(960)294-889874 [place] [address] 09-02-2024 12:46-0400 Diastolic blood pressure 78 mm[Hg] [facility] Work Phone: 6(081)670-424074 [place] [address] 09-02-2024 12:46-0400 Heart rate 60 /min [facility] Work Phone: 1(821)349-946274 [place] [address] 09-02-2024 12:46-0400 Respiratory rate 13 /min [facility] Work Phone: 6(273)187-072174 [place] [address] 09-02-2024 12:46-0400 SaO2% (BldA) [Mass fraction] 95 % [facility] Work Phone: 2(478)017-467074 [place] [address] 09-02-2024 12:46-0400 Systolic blood pressure 112 mm[Hg] [facility] Work Phone: 6(256)119-176974 [place] [address] 09-02-2024 12:00-0400 Heart rate 96 /min [facility] Work Phone: 8(330)499-595474 [place] [address] 09-02-2024 12:00-0400 Respiratory rate 17 /min [facility] Work Phone: 1(105)314-629774 [place] [address] 09-02-2024 12:00-0400 SaO2% (BldA) [Mass fraction] 97 % [facility] Work Phone: 4(789)666-280974 [place] [address] 09-02-2024 12:00-0400 Systolic blood pressure 144 mm[Hg] [facility] Work Phone: 9(320)534-990274 [place] [address] 09-02-2024 06:00-0400 Body mass index (BMI) [Ratio] 27.7 kg/m2 [facility] Work Phone: 4(563)587-892274 [place] [address] 09-02-2024 06:00-0400 Body weight 80.1 kg [facility] Work Phone: 0(598)059-615874 [place] [address] 08-30-2024 15:46-0400 Body height 170.18 cm [facility] Work Phone: 4(892)501-410674 [place] [address] 08-26-2024 20:00-0400 Diastolic blood pressure 69 mm[Hg] [facility] Work Phone: 2(051)722-758374 [place] [address] 08-26-2024 20:00-0400 Heart rate 98 /min [facility] Work Phone: 5(322)180-819074 [place] [address] 08-26-2024 20:00-0400 Systolic blood pressure 129 mm[Hg] [facility] Work Phone: 9(940)862-483774 [place] [address] 08-26-2024 19:09-0400 Body temperature 98 [degF] [facility] Work Phone: 7(405)629-653974 [place] [address] 08-26-2024 19:09-0400 Respiratory rate 16 /min [facility] Work Phone: 5(763)010-472174 [place] [address] 08-26-2024 19:09-0400 SaO2% (BldA) [Mass fraction] 97 % [facility] Work Phone: 1(252)568-511374 [place] [address] 08-26-2024 10:08-0400 Body height 170.18 cm [facility] Work Phone: 8(712)279-849974 [place] [address] 08-26-2024 10:08-0400 Body mass index (BMI) [Ratio] 28.8 kg/m2 [facility] Work Phone: 7(937)252-847974 [place] [address] 08-26-2024 10:08-0400 Body weight 83.6 kg [facility] Work Phone: 5(694)863-475374 [place] [address] 08-01-2024 20:58-0500 Heart rate 101 /min [facility] Work Phone: 5(328)476-651674 [place] [address] 08-01-2024 20:58-0500 Respiratory rate 22 /min [facility] Work Phone: 4(847)390-048574 [place] [address] 08-01-2024 20:58-0500 SaO2% (BldA) [Mass fraction] 99 % [facility] Work Phone: 6(392)111-620174 [place] [address] 08-01-2024 19:00-0500 Diastolic blood pressure 76 mm[Hg] [facility] Work Phone: 2(864)171-774374 [place] [address] 08-01-2024 19:00-0500 Systolic blood pressure 134 mm[Hg] [facility] Work Phone: 2(981)209-587774 [place] [address] 08-01-2024 17:00-0500 Body temperature 98.4 [degF] [facility] Work Phone: 8(952)087-924874 [place] [address] 08-01-2024 13:46-0500 Body mass index (BMI) [Ratio] 27.9 kg/m2 [facility] Work Phone: 8(845)333-530774 [place] [address] 08-01-2024 13:46-0500 Body weight 80.9 kg [facility] Work Phone: 5(447)715-553974 [place] [address] 07-11-2024 12:40-0500 Body mass index (BMI) [Ratio] 26.6 kg/m2 [facility] Work Phone: 1(365)406-123774 [place] [address] 07-11-2024 12:40-0500 Body temperature 96 [degF] [facility] Work Phone: 7(393)429-208374 [place] [address] 07-11-2024 12:40-0500 Body weight 77.11 kg [facility] Work Phone: 0(141)047-236474 [place] [address] 07-11-2024 12:40-0500 Diastolic blood pressure 83 mm[Hg] [facility] Work Phone: 9(814)522-337074 [place] [address] 07-11-2024 12:40-0500 Heart rate 94 /min [facility] Work Phone: 1(672)448-724574 [place] [address] 07-11-2024 12:40-0500 Respiratory rate 16 /min [facility] Work Phone: 7(007)621-880474 [place] [address] 07-11-2024 12:40-0500 SaO2% (BldA) [Mass fraction] 98 % [facility] Work Phone: 7(679)800-139974 [place] [address] 07-11-2024 12:40-0500 Systolic blood pressure 154 mm[Hg] [facility] Work Phone: 2(694)923-390474 [place] [address] 07-10-2024 12:46-0500 Body temperature 96.4 [degF] [facility] Work Phone: 0(203)081-882274 [place] [address] 07-10-2024 12:46-0500 Diastolic blood pressure 63 mm[Hg] [facility] Work Phone: 4(030)100-063174 [place] [address] 07-10-2024 12:46-0500 Heart rate 91 /min [facility] Work Phone: 2(733)614-032974 [place] [address] 07-10-2024 12:46-0500 Respiratory rate 16 /min [facility] Work Phone: 4(238)387-351374 [place] [address] 07-10-2024 12:46-0500 SaO2% (BldA) [Mass fraction] 97 % [facility] Work Phone: 1(675)764-830674 [place] [address] 07-10-2024 12:46-0500 Systolic blood pressure 118 mm[Hg] [facility] Work Phone: 3(228)627-719474 [place] [address] 07-07-2024 12:29-0500 Body temperature 97 [degF] [facility] Work Phone: 9(449)522-713374 [place] [address] 07-07-2024 12:29-0500 Diastolic blood pressure 59 mm[Hg] [facility] Work Phone: 4(123)712-709674 [place] [address] 07-07-2024 12:29-0500 Heart rate 65 /min [facility] Work Phone: 6(585)136-708574 [place] [address] 07-07-2024 12:29-0500 Respiratory rate 16 /min [facility] Work Phone: 3(367)312-722574 [place] [address] 07-07-2024 12:29-0500 SaO2% (BldA) [Mass fraction] 99 % [facility] Work Phone: 8(889)272-720674 [place] [address] 07-07-2024 12:29-0500 Systolic blood pressure 107 mm[Hg] [facility] Work Phone: 7(299)895-726774 [place] [address] 07-05-2024 11:27-0500 Body temperature 95.9 [degF] [facility] Work Phone: 0(227)171-421174 [place] [address] 07-05-2024 11:27-0500 Diastolic blood pressure 83 mm[Hg] [facility] Work Phone: 2(387)551-493774 [place] [address] 07-05-2024 11:27-0500 Heart rate 96 /min [facility] Work Phone: 1(066)525-367374 [place] [address] 07-05-2024 11:27-0500 Respiratory rate 16 /min [facility] Work Phone: 8(350)534-255574 [place] [address] 07-05-2024 11:27-0500 SaO2% (BldA) [Mass fraction] 94 % [facility] Work Phone: 1(085)185-788074 [place] [address] 07-05-2024 11:27-0500 Systolic blood pressure 142 mm[Hg] [facility] Work Phone: 4(830)124-868474 [place] [address] 07-04-2024 12:57-0500 Body mass index (BMI) [Ratio] 26.6 kg/m2 [facility] Work Phone: 1(454)868-564374 [place] [address] 07-04-2024 12:57-0500 Body temperature 96.5 [degF] [facility] Work Phone: 6(008)524-616774 [place] [address] 07-04-2024 12:57-0500 Body weight 77.11 kg [facility] Work Phone: 1(859)228-711874 [place] [address] 07-04-2024 12:57-0500 Diastolic blood pressure 69 mm[Hg] [facility] Work Phone: 4(980)619-074574 [place] [address] 07-04-2024 12:57-0500 Heart rate 97 /min [facility] Work Phone: 2(657)771-945074 [place] [address] 07-04-2024 12:57-0500 Respiratory rate 16 /min [facility] Work Phone: 1(186)388-302074 [place] [address] 07-04-2024 12:57-0500 SaO2% (BldA) [Mass fraction] 100 % [facility] Work Phone: 1(243)935-012174 [place] [address] 07-04-2024 12:57-0500 Systolic blood pressure 128 mm[Hg] [facility] Work Phone: 6(179)282-614474 [place] [address] 07-03-2024 13:17-0500 Body temperature 97.3 [degF] [facility] Work Phone: 4(352)854-840574 [place] [address] 07-03-2024 13:17-0500 Diastolic blood pressure 57 mm[Hg] [facility] Work Phone: 0(237)742-390674 [place] [address] 07-03-2024 13:17-0500 Heart rate 85 /min [facility] Work Phone: 4(670)208-236674 [place] [address] 07-03-2024 13:17-0500 Respiratory rate 18 /min [facility] Work Phone: 1(398)538-363074 [place] [address] 07-03-2024 13:17-0500 SaO2% (BldA) [Mass fraction] 100 % [facility] Work Phone: 2(730)552-159774 [place] [address] 07-03-2024 13:17-0500 Systolic blood pressure 107 mm[Hg] [facility] Work Phone: 1(747)642-130074 [place] [address] 07-03-2024 03:57-0500 Body mass index (BMI) [Ratio] 28.8 kg/m2 [facility] Work Phone: 4(246)559-916074 [place] [address] 07-03-2024 03:57-0500 Body weight 83.3 kg [facility] Work Phone: 0(323)669-478974 [place] [address] 05-24-2024 14:00-0500 Diastolic Blood Pressure Non-Invasive 69 mm[Hg] DR RAYMUNDO VIEIRA DO [facility] 05-24-2024 14:00-0500 Heart rate 91 /min DR RAYMUNDO VIEIRA DO [facility] 05-24-2024 14:00-0500 Respiratory rate 16 /min DR RAYMUNDO VIEIRA DO [facility] 05-24-2024 14:00-0500 Systolic Blood Pressure Non-Invasive 113 mm[Hg] DR RAYMUNDO VIEIRA DO [facility] 05-23-2024 22:49-0500 Diastolic Blood Pressure Non-Invasive 72 mm[Hg] DR RAYMUNDO VIEIRA DO [facility] 05-23-2024 22:49-0500 Heart rate 93 /min DR RAYMUNDO VIEIRA DO [facility] 05-23-2024 22:49-0500 Respiratory rate 18 /min DR RAYMUNDO VIEIRA DO [facility] 05-23-2024 22:49-0500 Systolic Blood Pressure Non-Invasive 124 mm[Hg] DR RAYMUNDO VIEIRA DO [facility] 05-23-2024 20:03-0500 Diastolic Blood Pressure Non-Invasive 59 mm[Hg] DR RAYMUNDO VIEIRA DO [facility] 05-23-2024 20:03-0500 Heart rate 91 /min DR RAYMUNDO VIEIRA DO [facility] 05-23-2024 20:03-0500 Mean blood pressure 67 mm[Hg] DR RAYMUNDO VIEIRA DO [facility] 05-23-2024 20:03-0500 Respiratory rate 14 /min DR RAYMUNDO VIEIRA DO [facility] 05-23-2024 20:03-0500 Systolic Blood Pressure Non-Invasive 83 mm[Hg] DR RAYMUNDO VIEIRA DO [facility] 05-23-2024 19:34-0500 Blood Pressure Cuff Size DR RAYMUNDO VIEIRA DO [facility] 05-23-2024 19:34-[address] RAYMUNDO VIEIRA DO [facility] 05-23-2024 19:34-[address] RAYMUNDO VIEIRA DO [facility] 05-23-2024 19:34-0500 Body temperature 98.06 [degF] DR RAYMUNDO VIEIRA DO [facility] 05-23-2024 19:34-0500 Heart rate 95 /min DR RAYMUNDO VIEIRA DO [facility] 04-29-2024 13:31-0500 Body temperature 98.2 [degF] [facility] Work Phone: 8(215)592-178513 [place] [address] 04-29-2024 13:31-0500 Diastolic blood pressure 70 mm[Hg] [facility] Work Phone: 8(456)653-997274 [place] [address] 04-29-2024 13:31-0500 Heart rate 89 /min [facility] Work Phone: 2(435)073-584974 [place] [address] 04-29-2024 13:31-0500 Respiratory rate 16 /min [facility] Work Phone: 6(576)861-825513 [place] [address] 04-29-2024 13:31-0500 SaO2% (BldA) [Mass fraction] 97 % [facility] Work Phone: 2(853)926-165813 [place] [address] 04-29-2024 13:31-0500 Systolic blood pressure 121 mm[Hg] [facility] Work Phone: 7(432)464-758574 [place] [address] 04-29-2024 10:26-0500 Body weight 73.[address] [facility] Work Phone: 5(561)918-664874 [place] [address] 04-25-2024 16:40-0500 Body mass index (BMI) [Ratio] 25.4 kg/m2 [facility] Work Phone: 9(418)575-600074 [place] [address] 10-15-2023 17:28-0400 Body temperature 97.2 [degF] [facility] 10-15-2023 17:28-0400 Diastolic blood pressure 75 mm[Hg] [facility] 10-15-2023 17:28-0400 Heart rate 87 /min [facility] 10-15-2023 17:28-0400 Respiratory rate 17 /min [facility] 10-15-2023 17:28-0400 SaO2% (BldA) [Mass fraction] 98 % [facility] 10-15-2023 17:28-0400 Systolic blood pressure 131 mm[Hg] [facility] 10-15-2023 15:35-0400 Body height 170.18 cm [facility] 09-02-2023 09:42-0400 Body temperature 97.6 [degF] [facility] Work Phone: 0(062)030-992274 [place] [address] 09-02-2023 09:42-0400 Diastolic blood pressure 76 mm[Hg] [facility] Work Phone: 1(812)943-496874 [place] [address] 09-02-2023 09:42-0400 Heart rate 101 /min [facility] Work Phone: 1(820)894-925574 [place] [address] 09-02-2023 09:42-0400 Respiratory rate 16 /min [facility] Work Phone: 6(544)609-802874 [place] [address] 09-02-2023 09:42-0400 SaO2% (BldA) [Mass fraction] 95 % [facility] Work Phone: 5(686)554-509774 [place] [address] 09-02-2023 09:42-0400 Systolic blood pressure 148 mm[Hg] [facility] Work Phone: 8(083)652-053174 [place] [address] 09-02-2023 07:42-0400 Body height 170.18 cm [facility] Work Phone: 9(791)510-913274 [place] [address] 09-02-2023 07:42-0400 Body mass index (BMI) [Ratio] 29.7 kg/m2 [facility] Work Phone: 8(546)840-889674 [place] [address] 09-02-2023 07:42-0400 Body weight 86.1 kg [facility] Work Phone: 7(096)931-251874 [place] [address] 09-02-2023 07:42-0400 Inhaled oxygen flow rate 2 L/min [facility] Work Phone: 8(968)344-362374 [place] [address] 06-19-2023 09:59-0500 Respiratory rate 14 /min [facility] Work Phone: 7(402)436-754574 [place] [address] 06-19-2023 09:12-0500 Body mass index (BMI) [Ratio] 26.2 kg/m2 [facility] Work Phone: 6(255)371-686874 [place] [address] 06-19-2023 09:12-0500 Body weight 75.7 kg [facility] Work Phone: 3(313)742-293874 [place] [address] 06-19-2023 09:03-0500 Body height 170.18 cm [facility] Work Phone: 5(054)423-814474 [place] [address] 06-19-2023 09:03-0500 Body temperature 95 [degF] [facility] Work Phone: 0(412)244-204674 [place] [address] 06-19-2023 09:03-0500 Diastolic blood pressure 94 mm[Hg] [facility] Work Phone: 2(542)145-773174 [place] [address] 06-19-2023 09:03-0500 Heart rate 102 /min [facility] Work Phone: 4(074)351-382574 [place] [address] 06-19-2023 09:03-0500 SaO2% (BldA) [Mass fraction] 97 % [facility] Work Phone: 1(052)975-807374 [place] [address] 06-19-2023 09:03-0500 Systolic blood pressure 142 mm[Hg] [facility] Work Phone: 0(617)604-998474 [place] [address] 06-16-2023 11:30-0500 SaO2% (BldA) [Mass fraction] 93 % [facility] Work Phone: 8(852)785-501574 [place] [address] 06-16-2023 07:49-0500 Body temperature 97.6 [degF] [facility] Work Phone: 5(015)805-720674 [place] [address] 06-16-2023 07:49-0500 Diastolic blood pressure 80 mm[Hg] [facility] Work Phone: 4(567)262-872274 [place] [address] 06-16-2023 07:49-0500 Heart rate 79 /min [facility] Work Phone: 9(621)183-858474 [place] [address] 06-16-2023 07:49-0500 Respiratory rate 18 /min [facility] Work Phone: 1(491)667-328774 [place] [address] 06-16-2023 07:49-0500 Systolic blood pressure 119 mm[Hg] [facility] Work Phone: 2(569)246-210374 [place] [address] 06-15-2023 20:35-0500 Inhaled oxygen flow rate 2 L/min [facility] Work Phone: 3(948)188-711074 [place] [address] 06-13-2023 14:21-0500 Body height 170.18 cm [facility] Work Phone: 3(571)291-617774 [place] [address] 06-13-2023 14:21-0500 Body weight 79.42 kg [facility] Work Phone: 9(488)432-878374 [place] [address] 06-13-2023 03:00-0500 Body mass index (BMI) [Ratio] 27.4 kg/m2 [facility] Work Phone: 0(186)705-918274 [place] [address] 06-13-2023 01:36-0500 Diastolic blood pressure 92 mm[Hg] [facility] Work Phone: 3(522)352-433674 [place] [address] 06-13-2023 01:36-0500 Heart rate 98 /min [facility] Work Phone: 1(002)108-671074 [place] [address] 06-13-2023 01:36-0500 Respiratory rate 15 /min [facility] Work Phone: 9(038)770-008574 [place] [address] 06-13-2023 01:36-0500 SaO2% (BldA) [Mass fraction] 95 % [facility] Work Phone: 9(323)179-692774 [place] [address] 06-13-2023 01:36-0500 Systolic blood pressure 131 mm[Hg] [facility] Work Phone: 0(116)505-124674 [place] [address] 06-12-2023 23:01-0500 Inhaled oxygen flow rate 4 L/min [facility] Work Phone: 0(905)039-443674 [place] [address] 06-12-2023 19:59-0500 Body temperature 98.9 [degF] [facility] Work Phone: 3(596)503-760574 [place] [address] 05-26-2023 12:07-0500 Diastolic blood pressure 74 mm[Hg] [facility] Work Phone: 6(024)381-802174 [place] [address] 05-26-2023 12:07-0500 Heart rate 82 /min [facility] Work Phone: 2(734)648-153374 [place] [address] 05-26-2023 12:07-0500 Respiratory rate 16 /min [facility] Work Phone: 5(463)278-533474 [place] [address] 05-26-2023 12:07-0500 SaO2% (BldA) [Mass fraction] 96 % [facility] Work Phone: 9(397)334-834274 [place] [address] 05-26-2023 12:07-0500 Systolic blood pressure 138 mm[Hg] [facility] Work Phone: 1(722)984-846074 [place] [address] 05-26-2023 10:44-0500 Body mass index (BMI) [Ratio] 26.3 kg/m2 [facility] Work Phone: 9(394)290-514874 [place] [address] 05-26-2023 10:44-0500 Body weight 76.1 kg [facility] Work Phone: 6(165)126-137574 [place] [address] 05-26-2023 09:50-0500 Body temperature 96.6 [degF] [facility] Work Phone: 1(621)972-644574 [place] [address] 05-22-2023 16:02-0500 Respiratory rate 16 /min [facility] Work Phone: 9(245)013-524774 [place] [address] 05-22-2023 14:33-0500 Body mass index (BMI) [Ratio] 26.6 kg/m2 [facility] Work Phone: 5(646)380-143274 [place] [address] 05-22-2023 14:33-0500 Body weight 77.2 kg [facility] Work Phone: 0(500)173-397474 [place] [address] 05-22-2023 13:51-0500 Body height 170.18 cm [facility] Work Phone: 1(660)923-786174 [place] [address] 05-22-2023 13:51-0500 Body temperature 97.3 [degF] [facility] Work Phone: 9(635)698-226374 [place] [address] 05-22-2023 13:51-0500 Diastolic blood pressure 82 mm[Hg] [facility] Work Phone: 5(550)874-427474 [place] [address] 05-22-2023 13:51-0500 Heart rate 107 /min [facility] Work Phone: 7(337)220-034574 [place] [address] 05-22-2023 13:51-0500 SaO2% (BldA) [Mass fraction] 98 % [facility] Work Phone: 0(591)716-180574 [place] [address] 05-22-2023 13:51-0500 Systolic blood pressure 150 mm[Hg] [facility] Work Phone: 7(510)981-723674 [place] [address] 05-07-2023 16:50-0500 Body temperature 98.3 [degF] [facility] Work Phone: 0(545)962-520674 [place] [address] 05-07-2023 16:50-0500 Diastolic blood pressure 68 mm[Hg] [facility] Work Phone: 1(079)189-907974 [place] [address] 05-07-2023 16:50-0500 Heart rate 84 /min [facility] Work Phone: 5(791)517-323174 [place] [address] 05-07-2023 16:50-0500 Respiratory rate 16 /min [facility] Work Phone: 0(533)395-107374 [place] [address] 05-07-2023 16:50-0500 SaO2% (BldA) [Mass fraction] 99 % [facility] Work Phone: 5(130)594-229774 [place] [address] 05-07-2023 16:50-0500 Systolic blood pressure 101 mm[Hg] [facility] Work Phone: 1(168)356-729974 [place] [address] 05-07-2023 12:30-0500 Body temperature 98.4 [degF] [facility] Work Phone: 6(955)952-788974 [place] [address] 05-07-2023 12:30-0500 Diastolic blood pressure 63 mm[Hg] [facility] Work Phone: 8(410)246-515074 [place] [address] 05-07-2023 12:30-0500 Heart rate 85 /min [facility] Work Phone: 4(481)256-300474 [place] [address] 05-07-2023 12:30-0500 Respiratory rate 16 /min [facility] Work Phone: 5(321)306-714374 [place] [address] 05-07-2023 12:30-0500 SaO2% (BldA) [Mass fraction] 92 % [facility] Work Phone: 5(213)069-904074 [place] [address] 05-07-2023 12:30-0500 Systolic blood pressure 94 mm[Hg] [facility] Work Phone: 9(854)670-626374 [place] [address] 05-07-2023 06:00-0500 Body mass index (BMI) [Ratio] 26.4 kg/m2 [facility] Work Phone: 9(020)886-091174 [place] [address] 05-07-2023 06:00-0500 Body weight 76.5 kg [facility] Work Phone: 4(030)272-612374 [place] [address] 05-05-2023 07:53-0500 Inhaled oxygen flow rate 5 L/min [facility] Work Phone: 4(453)056-136474 [place] [address] 05-04-2023 15:22-0500 Body height 170.[address] [facility] Work Phone: 9(269)037-183474 [place] [address] 05-03-2023 17:00-0500 Heart rate 110 /min [facility] Work Phone: 7(183)374-329474 [place] [address] 05-03-2023 17:00-0500 Inhaled oxygen flow rate 5 L/min [facility] Work Phone: 3(030)142-243674 [place] [address] 05-03-2023 17:00-0500 Respiratory rate 16 /min [facility] Work Phone: 1(305)769-107274 [place] [address] 05-03-2023 17:00-0500 SaO2% (BldA) [Mass fraction] 93 % [facility] Work Phone: 1(869)525-747474 [place] [address] 05-03-2023 16:23-0500 Diastolic blood pressure 84 mm[Hg] [facility] Work Phone: 7(234)853-715474 [place] [address] 05-03-2023 16:23-0500 Systolic blood pressure 134 mm[Hg] [facility] Work Phone: 5(037)798-502674 [place] [address] 05-03-2023 13:37-0500 Body height 170.[address] [facility] Work Phone: 2(777)727-270574 [place] [address] 05-03-2023 13:37-0500 Body mass index (BMI) [Ratio] 26.6 kg/m2 [facility] Work Phone: 3(896)286-602274 [place] [address] 05-03-2023 13:37-0500 Body temperature 97.1 [degF] [facility] Work Phone: 4(895)282-178374 [place] [address] 05-03-2023 13:37-0500 Body weight 77.1 kg [facility] Work Phone: 0(986)512-320774 [place] [address] 04-18-2023 14:40-0500 Body height 170.18 cm [facility] Work Phone: 9(150)027-723574 [place] [address] 04-18-2023 14:40-0500 Body mass index (BMI) [Ratio] 25.8 kg/m2 [facility] Work Phone: 6(616)598-867574 [place] [address] 04-18-2023 14:40-0500 Body weight 74.84 kg [facility] Work Phone: 6(101)239-259474 [place] [address] 04-18-2023 14:40-0500 Diastolic blood pressure 87 mm[Hg] [facility] Work Phone: 5(325)535-712374 [place] [address] 04-18-2023 14:40-0500 Heart rate 91 /min [facility] Work Phone: 7(541)029-156574 [place] [address] 04-18-2023 14:40-0500 Respiratory rate 17 /min [facility] Work Phone: 3(967)936-288674 [place] [address] 04-18-2023 14:40-0500 SaO2% (BldA) [Mass fraction] 98 % [facility] Work Phone: 7(133)780-164774 [place] [address] 04-18-2023 14:40-0500 Systolic blood pressure 138 mm[Hg] [facility] Work Phone: 3(471)422-460074 [place] [address] 03-22-2023 13:40-0400 Body height 170.18 cm [facility] Work Phone: 6(686)465-271474 [place] [address] 03-22-2023 13:40-0400 Body mass index (BMI) [Ratio] 25.5 kg/m2 [facility] Work Phone: 4(506)103-466674 [place] [address] 03-22-2023 13:40-0400 Body weight 73.93 kg [facility] Work Phone: 4(417)211-322774 [place] [address] 03-22-2023 13:40-0400 Diastolic blood pressure 77 mm[Hg] [facility] Work Phone: 5(307)742-511574 [place] [address] 03-22-2023 13:40-0400 Heart rate 89 /min [facility] Work Phone: 9(753)805-621574 [place] [address] 03-22-2023 13:40-0400 Respiratory rate 18 /min [facility] Work Phone: 9(077)578-535274 [place] [address] 03-22-2023 13:40-0400 SaO2% (BldA) [Mass fraction] 99 % [facility] Work Phone: 9(499)084-587274 [place] [address] 03-22-2023 13:40-0400 Systolic blood pressure 114 mm[Hg] [facility] Work Phone: 8(523)037-137374 [place] [address] 02-28-2023 11:12-0400 Body mass index (BMI) [Ratio] 24.9 kg/m2 [facility] Work Phone: 3(843)934-487874 [place] [address] 02-28-2023 11:12-0400 Body weight 72.12 kg [facility] Work Phone: 5(378)389-442574 [place] [address] 02-28-2023 11:12-0400 Diastolic blood pressure 74 mm[Hg] [facility] Work Phone: 4(184)685-782474 [place] [address] 02-28-2023 11:12-0400 Heart rate 103 /min [facility] Work Phone: 4(176)187-616274 [place] [address] 02-28-2023 11:12-0400 Respiratory rate 18 /min [facility] Work Phone: 8(651)781-960474 [place] [address] 02-28-2023 11:12-0400 Systolic blood pressure 109 mm[Hg] [facility] Work Phone: 9(429)083-907874 [place] [address] 02-03-2023 15:12-0400 SaO2% (BldA) [Mass fraction] 97 % [facility] Work Phone: 2(716)267-504474 [place] [address] 02-03-2023 14:58-0400 Body temperature 97 [degF] [facility] Work Phone: 0(926)442-900974 [place] [address] 02-03-2023 14:58-0400 Diastolic blood pressure 71 mm[Hg] [facility] Work Phone: 6(233)726-172374 [place] [address] 02-03-2023 14:58-0400 Heart rate 92 /min [facility] Work Phone: 1(499)036-278874 [place] [address] 02-03-2023 14:58-0400 Respiratory rate 18 /min [facility] Work Phone: 7(923)093-342974 [place] [address] 02-03-2023 14:58-0400 Systolic blood pressure 99 mm[Hg] [facility] Work Phone: 6(375)346-437374 [place] [address] 02-03-2023 13:19-0400 Body height 170.18 cm [facility] Work Phone: 0(358)638-993074 [place] [address] 02-03-2023 13:19-0400 Body weight 71.1 kg [facility] Work Phone: 6(976)354-790374 [place] [address] 02-03-2023 10:30-0400 Inhaled oxygen flow rate 2 L/min [facility] Work Phone: 6(346)889-846974 [place] [address] 02-03-2023 03:59-0400 Body mass index (BMI) [Ratio] 24.5 kg/m2 [facility] Work Phone: 5(501)619-123074 [place] [address] 02-02-2023 21:45-0400 Inhaled oxygen concentration 2 % [facility] Work Phone: 6(703)161-866274 [place] [address] 02-02-2023 17:59-0400 Heart rate 112 /min [facility] Work Phone: 8(213)094-795474 [place] [address] 02-02-2023 17:59-0400 Inhaled oxygen flow rate 2 L/min [facility] Work Phone: 6(875)590-932774 [place] [address] 02-02-2023 17:59-0400 Respiratory rate 18 /min [facility] Work Phone: 5(944)556-284574 [place] [address] 02-02-2023 17:59-0400 SaO2% (BldA) [Mass fraction] 95 % [facility] Work Phone: 6(077)199-583674 [place] [address] 02-02-2023 16:00-0400 Body temperature 97 [degF] [facility] Work Phone: 3(652)455-101974 [place] [address] 02-02-2023 16:00-0400 Diastolic blood pressure 97 mm[Hg] [facility] Work Phone: 7(029)985-571774 [place] [address] 02-02-2023 16:00-0400 Systolic blood pressure 134 mm[Hg] [facility] Work Phone: 8(467)500-175474 [place] [address] 02-02-2023 11:21-0400 Body height 167.64 cm [facility] Work Phone: 1(504)716-180574 [place] [address] 02-02-2023 11:21-0400 Body mass index (BMI) [Ratio] 27.1 kg/m2 [facility] Work Phone: 5(283)117-504274 [place] [address] 02-02-2023 11:21-0400 Body weight 76.2 kg [facility] Work Phone: 1(664)311-742474 [place] [address] 01-03-2023 11:42-0400 Body temperature 98 [degF] [facility] Work Phone: 7(216)173-464574 [place] [address] 01-03-2023 11:42-0400 Diastolic blood pressure 66 mm[Hg] [facility] Work Phone: 1(215)956-372274 [place] [address] 01-03-2023 11:42-0400 Heart rate 92 /min [facility] Work Phone: 1(651)174-013874 [place] [address] 01-03-2023 11:42-0400 Respiratory rate 15 /min [facility] Work Phone: 7(807)631-858874 [place] [address] 01-03-2023 11:42-0400 SaO2% (BldA) [Mass fraction] 100 % [facility] Work Phone: 2(972)989-959074 [place] [address] 01-03-2023 11:42-0400 Systolic blood pressure 101 mm[Hg] [facility] Work Phone: 7(257)049-111374 [place] [address] 01-03-2023 05:29-0400 Body mass index (BMI) [Ratio] 25.9 kg/m2 [facility] Work Phone: 7(620)051-571074 [place] [address] 01-03-2023 05:29-0400 Body weight 73.1 kg [facility] Work Phone: 0(794)142-414474 [place] [address] 01-02-2023 12:06-0400 Body height 167.64 cm [facility] Work Phone: 0(509)776-555074 [place] [address] 01-02-2023 08:20-0400 Inhaled oxygen flow rate 2 L/min [facility] Work Phone: 8(771)159-400074 [place] [address] 01-01-2023 16:36-0400 Body temperature 98.2 [degF] [facility] Work Phone: 9(317)514-424974 [place] [address] 01-01-2023 16:36-0400 Diastolic blood pressure 96 mm[Hg] [facility] Work Phone: 5(499)646-359874 [place] [address] 01-01-2023 16:36-0400 Heart rate 105 /min [facility] Work Phone: 0(401)132-571874 [place] [address] 01-01-2023 16:36-0400 Inhaled oxygen flow rate 2 L/min [facility] Work Phone: 7(465)820-407274 [place] [address] 01-01-2023 16:36-0400 Respiratory rate 18 /min [facility] Work Phone: 3(044)940-702574 [place] [address] 01-01-2023 16:36-0400 SaO2% (BldA) [Mass fraction] 98 % [facility] Work Phone: 2(647)828-206474 [place] [address] 01-01-2023 16:36-0400 Systolic blood pressure 140 mm[Hg] [facility] Work Phone: 6(925)713-187474 [place] [address] 01-01-2023 12:11-0400 Body height 167.64 cm [facility] Work Phone: 2(813)987-617974 [place] [address] 01-01-2023 12:11-0400 Body mass index (BMI) [Ratio] 27.1 kg/m2 [facility] Work Phone: 9(009)544-460174 [place] [address] 01-01-2023 12:11-0400 Body weight 76.3 kg [facility] Work Phone: 9(673)940-128474 [place] [address] 10-01-2022 11:09-0400 Body height 167.[address] Nathaly [facility] Work Phone: 5(259)286-261274 [place] [address] 10-01-2022 11:09-0400 Body mass index (BMI) [Ratio] 25.2 kg/m2 Dr. Nathaly [facility] Work Phone: 9(649)657-043874 [place] [address] 10-01-2022 11:09-0400 Body temperature 95.7 [degF] Dr. Nath[facility] Work Phone: 5(696)601-568074 [place] [address] 10-01-2022 11:09-0400 Body weight 70.[address] Nathaly [facility] Work Phone: 4(776)398-912574 [place] [address] 10-01-2022 11:09-0400 Diastolic blood pressure 80 mm[Hg] Dr. [facility] Work Phone: 4(614)505-028774 [place] [address] 10-01-2022 11:09-0400 Heart rate 102 /min Dr. Nathaly [facility] Work Phone: 1(800)639-273274 [place] [address] 10-01-2022 11:09-0400 Respiratory rate 24 /min Dr. Nath[facility] Work Phone: 0(969)718-416574 [place] [address] 10-01-2022 11:09-0400 SaO2% (BldA) [Mass fraction] 100 % Dr. Nathaly [facility] Work Phone: 0(659)672-236174 [place] [address] 10-01-2022 11:09-0400 Systolic blood pressure 119 mm[Hg] Dr. Nathaly [facility] Work Phone: 5(249)387-635674 [place] [address] 09-18-2022 18:57-0400 Diastolic blood pressure 83 mm[Hg] Dr. Nathaly [facility] Work Phone: 2(043)214-456074 [place] [address] 09-18-2022 18:57-0400 Heart rate 74 /min Dr. Nathaly Lainez Work Phone: 8(489)838-668674 [place] [address] 09-18-2022 18:57-0400 Respiratory rate 16 /min Dr. Nathaly L[facility] Work Phone: 7(381)885-529274 [place] [address] 09-18-2022 18:57-0400 SaO2% (BldA) [Mass fraction] 98 % Dr. Nathaly L[facility] Work Phone: 6(900)649-463174 [place] [address] 09-18-2022 18:57-0400 Systolic blood pressure 126 mm[Hg] Dr. Nathaly [facility] Work Phone: 2(838)437-972674 [place] [address] 09-18-2022 14:13-0400 Body height 167.[address] Nathaly Laine[facility] Work Phone: 9(799)723-745374 [place] [address] 09-18-2022 14:13-0400 Body mass index (BMI) [Ratio] 25.2 kg/m2 Dr. Nathaly Lainez Work Phone: 9(420)266-904974 [place] [address] 09-18-2022 14:13-0400 Body temperature 97.6 [degF] Dr. Nathaly L[facility] Work Phone: 0(262)540-031674 [place] [address] 09-18-2022 14:13-0400 Body weight 70.[address] Nathaly Lainez Work Phone: 1(545)523-695174 [place] [address] 09-11-2022 20:19-0400 Diastolic blood pressure 92 mm[Hg] Dr. Nathaly [facility] Work Phone: 4(551)382-716574 [place] [address] 09-11-2022 20:19-0400 Heart rate 101 /min Dr. Nathaly Lainez Work Phone: 7(246)843-317474 [place] [address] 09-11-2022 20:19-0400 Respiratory rate 17 /min Dr. Nathaly L[facility] Work Phone: 7(069)160-590374 [place] [address] 09-11-2022 20:19-0400 SaO2% (BldA) [Mass fraction] 96 % Dr. Nathaly [facility] Work Phone: 9(423)317-225974 [place] [address] 09-11-2022 20:19-0400 Systolic blood pressure 142 mm[Hg] Dr. Nathaly [facility] Work Phone: 2(138)567-083774 [place] [address] 09-11-2022 14:27-0400 Body height 170.[address] Nathaly Lainez Work Phone: 5(270)231-224174 [place] [address] 09-11-2022 14:27-0400 Body mass index (BMI) [Ratio] 24.4 kg/m2 Dr. Nathaly Lainez Work Phone: 3(418)625-283074 [place] [address] 09-11-2022 14:27-0400 Body temperature 97.2 [degF] Dr. Nathaly L[facility] Work Phone: 1(976)945-245074 [place] [address] 09-11-2022 14:27-0400 Body weight 70.[address] Nathaly Laine[facility] Work Phone: 6(609)942-525274 [place] [address] 09-09-2022 23:43-0400 Diastolic blood pressure 74 mm[Hg] Dr. Nathaly L[facility] Work Phone: 5(331)155-151574 [place] [address] 09-09-2022 23:43-0400 Systolic blood pressure 123 mm[Hg] Dr. Nathaly Laine[facility] Work Phone: 1(542)716-552074 [place] [address] 09-09-2022 18:22-0400 Body height 170.[address] Nathaly Lainez Work Phone: 1(006)880-775074 [place] [address] 09-09-2022 18:22-0400 Body mass index (BMI) [Ratio] 24.4 kg/m2 Dr. Nathaly Lainez Work Phone: 0(762)868-092074 [place] [address] 09-09-2022 18:22-0400 Body temperature 97.4 [degF] Dr. Nathaly L[facility] Work Phone: 1(512)955-537374 [place] [address] 09-09-2022 18:22-0400 Body weight 70.[address] Nathaly Lainez Work Phone: 1(050)572-368274 [place] [address] 09-09-2022 18:22-0400 Heart rate 111 /min Dr. Nathaly Lainez Work Phone: 0(406)[phone] [place] [address] 09-09-2022 18:22-0400 Respiratory rate 16 /min Dr. Nathaly Lainez Work Phone: 4(604)[phone] [place] [address] 09-09-2022 18:22-0400 SaO2% (BldA) [Mass fraction] 99 % Dr. Nathaly Lainez Work Phone: 4(296)[phone] [place] [address] 09-05-2022 15:02-0400 Respiratory rate 18 /min Dr. Nathaly Lainez Work Phone: 2(461)466-640274 [place] [address] 09-05-2022 12:29-0400 Body height 170.[address] Nathaly Lainez Work Phone: 2(511)340-564774 [place] [address] 09-05-2022 12:29-0400 Body mass index (BMI) [Ratio] 26.3 kg/m2 Dr. Nathaly Lainez Work Phone: 2(084)707-008474 [place] [address] 09-05-2022 12:29-0400 Body temperature 98.3 [degF] Dr. Nathaly Lainez Work Phone: 2(010)154-822374 [place] [address] 09-05-2022 12:29-0400 Body weight 76.[address] Nathaly Lainez Work Phone: 1(636)825-711874 [place] [address] 09-05-2022 12:29-0400 Diastolic blood pressure 90 mm[Hg] Dr. Nathaly Lainez Work Phone: 9(075)246-254574 [place] [address] 09-05-2022 12:29-0400 Heart rate 111 /min Dr. Nathaly Lainez Work Phone: 3(678)404-804274 [place] [address] 09-05-2022 12:29-0400 SaO2% (BldA) [Mass fraction] 98 % Dr. Nathaly Lainez Work Phone: 6(721)903-385774 [place] [address] 09-05-2022 12:29-0400 Systolic blood pressure 139 mm[Hg] Dr. Nathaly Lainez Work Phone: 3(786)700-720674 [place] [address] 09-02-2022 13:40-0400 Body temperature 97.9 [degF] Dr. Nathaly Lainez Work Phone: 5(297)955-421074 [place] [address] 09-02-2022 13:40-0400 Diastolic blood pressure 66 mm[Hg] Dr. Nathaly Lainez Work Phone: 1(489)162-497674 [place] [address] 09-02-2022 13:40-0400 Heart rate 98 /min Dr. Nathaly Lainez Work Phone: 1(585)142-447474 [place] [address] 09-02-2022 13:40-0400 Respiratory rate 18 /min Dr. Nathaly Lainez Work Phone: 7(361)987-287974 [place] [address] 09-02-2022 13:40-0400 SaO2% (BldA) [Mass fraction] 96 % Dr. Nathaly Lainez Work Phone: 8(259)603-105774 [place] [address] 09-02-2022 13:40-0400 Systolic blood pressure 108 mm[Hg] Dr. Nathaly Lainez Work Phone: 8(327)822-732374 [place] [address] 08-31-2022 16:10-0400 Inhaled oxygen flow rate 4 L/min Dr. Nathaly Lainez Work Phone: 5(123)585-330074 [place] [address] 08-31-2022 14:32-0400 Body height 170.[address] Nathaly Lainez Work Phone: 3(304)082-875074 [place] [address] 08-31-2022 14:32-0400 Body weight 70.[address] Nathaly Lainez Work Phone: 7(307)249-104874 [place] [address] 08-31-2022 09:14-0400 Body mass index (BMI) [Ratio] 24.4 kg/m2 Dr. Nathaly Lainez Work Phone: 8(708)963-726174 [place] [address] 08-30-2022 17:01-0400 Diastolic blood pressure 101 mm[Hg] Dr. Nathaly Lainez Work Phone: 3(631)212-791374 [place] [address] 08-30-2022 17:01-0400 Heart rate 118 /min Dr. Nathaly Lainez Work Phone: 1(037)750-775874 [place] [address] 08-30-2022 17:01-0400 Respiratory rate 18 /min Dr. Nathaly Lainez Work Phone: 9(647)072-528374 [place] [address] 08-30-2022 17:01-0400 SaO2% (BldA) [Mass fraction] 97 % Dr. Nathaly Lainez Work Phone: 0(795)766-252274 [place] [address] 08-30-2022 17:01-0400 Systolic blood pressure 142 mm[Hg] Dr. Nathaly Lainez Work Phone: 1(623)782-806974 [place] [address] 08-30-2022 16:13-0400 Body temperature 98.4 [degF] Dr. Nathaly Lainez Work Phone: 2(166)787-447059 [address] 08-30-2022 13:53-0400 Body height 170.[address] Nathaly Lainez Work Phone: 8(173)920-291774 [place] [address] 08-30-2022 13:53-0400 Body mass index (BMI) [Ratio] 24.4 kg/m2 Dr. Nathaly Lainez Work Phone: 7(764)670-813059 [address] 08-30-2022 13:53-0400 Body weight 70.[address] Nathaly Lainez Work Phone: 6(762)288-806274 [place] [address] 08-23-2022 13:03-0400 Body weight 73.[address] Nathaly Lainez Work Phone: 0(888)816-088474 [place] [address] 08-23-2022 13:03-0400 Diastolic blood pressure 81 mm[Hg] Dr. Nathaly Lainez Work Phone: 4(161)732-294974 [place] [address] 08-23-2022 13:03-0400 Heart rate 110 /min Dr. Nathaly Lainez Work Phone: 9(442)015-362474 [place] [address] 08-23-2022 13:03-0400 Respiratory rate 16 /min Dr. Nathaly Lainez Work Phone: 6(093)265-793674 [place] [address] 08-23-2022 13:03-0400 SaO2% (BldA) [Mass fraction] 99 % Dr. Nathaly Lainez Work Phone: 1(190)936-954559 [address] 08-23-2022 13:03-0400 Systolic blood pressure 124 mm[Hg] Dr. Nathaly Lainez Work Phone: 3(171)698-333859 [address] 08-14-2022 16:50-0400 Diastolic blood pressure 68 mm[Hg] Dr. Nathaly Lainez Work Phone: 0(332)852-189474 [place] [address] 08-14-2022 16:50-0400 Heart rate 89 /min Dr. Nathaly Lainez Work Phone: 2(536)075-483313 [place] [address] 08-14-2022 16:50-0400 Respiratory rate 16 /min Dr. Nathaly Lainez Work Phone: 7(764)961-028474 [place] [address] 08-14-2022 16:50-0400 SaO2% (BldA) [Mass fraction] 95 % Dr. Nathaly Lainez Work Phone: 8(752)328-920874 [place] [address] 08-14-2022 16:50-0400 Systolic blood pressure 142 mm[Hg] Dr. Nathaly Lainez Work Phone: 0(095)365-137774 [place] [address] 08-14-2022 13:51-0400 Body temperature 97.8 [degF] Dr. Nathaly Lainez Work Phone: 4(270)582-365274 [place] [address] 08-14-2022 13:37-0400 Body height 170.[address] Nathaly Lainez Work Phone: 8(242)750-206974 [place] [address] 08-14-2022 13:37-0400 Body mass index (BMI) [Ratio] 24.7 kg/m2 Dr. Nathaly Lainez Work Phone: 3(819)461-859774 [place] [address] 08-14-2022 13:37-0400 Body weight 71.[address] Nathaly Lainez Work Phone: 3(380)404-995574 [place] [address] 08-10-2022 07:07-0500 Body height 170.[address] Nathaly Lainez Work Phone: 4(469)211-833474 [place] [address] 08-10-2022 07:07-0500 Body weight 69.[address] Nathaly Lainez Work Phone: 0(858)741-054474 [place] [address] 08-09-2022 15:33-0500 Body mass index (BMI) [Ratio] 24.1 kg/m2 Dr. Nathaly Lainez Work Phone: 1(954)507-882874 [place] [address] 08-09-2022 10:47-0500 Body temperature 98 [degF] Dr. Nathaly Lainez Work Phone: 9(748)859-778474 [place] [address] 08-09-2022 10:47-0500 Diastolic blood pressure 89 mm[Hg] Dr. Nathaly Lainez Work Phone: 7(507)093-881574 [place] [address] 08-09-2022 10:47-0500 Heart rate 103 /min Dr. Nathaly Lainez Work Phone: 8(815)161-241774 [place] [address] 08-09-2022 10:47-0500 Respiratory rate 18 /min Dr. Nathaly Lainez Work Phone: 6(179)006-379974 [place] [address] 08-09-2022 10:47-0500 SaO2% (BldA) [Mass fraction] 97 % Dr. Nathaly Lainez Work Phone: 1(107)360-778174 [place] [address] 08-09-2022 10:47-0500 Systolic blood pressure 136 mm[Hg] Dr. aNthaly Lainez Work Phone: 5(659)832-499474 [place] [address] 08-06-2022 16:45-0500 Body temperature 97.8 [degF] Dr. Nathaly Lainez Work Phone: 0(754)753-034674 [place] [address] 08-06-2022 16:45-0500 Diastolic blood pressure 78 mm[Hg] Dr. Nathaly Lainez Work Phone: 2(943)696-014674 [place] [address] 08-06-2022 16:45-0500 Heart rate 76 /min Dr. Nathaly Lainez Work Phone: 9(563)298-618574 [place] [address] 08-06-2022 16:45-0500 Respiratory rate 16 /min Dr. Nathaly Lainez Work Phone: 6(659)187-055574 [place] [address] 08-06-2022 16:45-0500 SaO2% (BldA) [Mass fraction] 99 % Dr. Nathaly Lainez Work Phone: 1(399)430-792774 [place] [address] 08-06-2022 16:45-0500 Systolic blood pressure 143 mm[Hg] Dr. Nathaly Lainez Work Phone: 6(563)911-510174 [place] [address] 08-06-2022 14:43-0500 Body mass index (BMI) [Ratio] 24.2 kg/m2 Dr. Nathaly Lainez Work Phone: 1(891)401-315774 [place] [address] 08-06-2022 14:43-0500 Body weight 70.[address] Nathaly Lainez Work Phone: 2(146)955-371974 [place] [address] 08-03-2022 16:26-0500 Diastolic blood pressure 74 mm[Hg] Dr. Nathaly Lainez Work Phone: 8(874)463-503874 [place] [address] 08-03-2022 16:26-0500 Heart rate 107 /min Dr. Nathaly Lainez Work Phone: 1(521)285-332674 [place] [address] 08-03-2022 16:26-0500 Respiratory rate 18 /min Dr. Nathaly Lainez Work Phone: 4(777)971-853074 [place] [address] 08-03-2022 16:26-0500 SaO2% (BldA) [Mass fraction] 94 % Dr. Nathaly Lainez Work Phone: 6(157)831-124274 [place] [address] 08-03-2022 16:26-0500 Systolic blood pressure 114 mm[Hg] Dr. Nathaly Lainez Work Phone: 7(747)874-778574 [place] [address] 08-03-2022 12:19-0500 Body height 170.[address] Nathaly Lainez Work Phone: 0(043)921-904974 [place] [address] 08-03-2022 12:19-0500 Body mass index (BMI) [Ratio] 25.2 kg/m2 Dr. Nathaly Lainez Work Phone: 7(827)718-625574 [place] [address] 08-03-2022 12:19-0500 Body temperature 97.7 [degF] Dr. Nathaly Lainez Work Phone: 3(740)857-963574 [place] [address] 08-03-2022 12:19-0500 Body weight 73.[address] Nathaly Lainez Work Phone: 8(117)037-071574 [place] [address] 07-25-2022 12:13-0500 Diastolic blood pressure 90 mm[Hg] Dr. Nathaly Lainez Work Phone: 0(494)396-009674 [place] [address] 07-25-2022 12:13-0500 Heart rate 78 /min Dr. Nathaly Lainez Work Phone: 4(096)614-459374 [place] [address] 07-25-2022 12:13-0500 Respiratory rate 18 /min Dr. Nathaly Lainez Work Phone: 2(881)908-431574 [place] [address] 07-25-2022 12:13-0500 SaO2% (BldA) [Mass fraction] 98 % Dr. Nathaly Lainez Work Phone: [facility] 07-25-2022 12:13-0500 Systolic blood pressure 142 mm[Hg] Dr. Nathaly Lainez Work Phone: [facility] 07-25-2022 09:16-0500 Body height 170.[address] Nathaly Lainez Work Phone: [facility] 07-25-2022 09:16-0500 Body mass index (BMI) [Ratio] 26.3 kg/m2 Dr. Nathaly Lainez Work Phone: [facility] 07-25-2022 09:16-0500 Body temperature 97.4 [degF] Dr. Nathaly Lainez Work Phone: [facility] 07-25-2022 09:16-0500 Body weight 76.[address] Nathaly Lainez Work Phone: [facility] 06-08-2022 14:09-0500 Body height 167.6 cm Jerry Robert PA-C Work Phone: [facility] 06-08-2022 14:09-0500 Body mass index (BMI) [Ratio] 25.02 kg/m2 Jerry Robert PA-C Work Phone: [facility] 06-08-2022 14:09-0500 Body weight 70.31 kg Jerry Robert PA-C Work Phone: [facility] 06-08-2022 14:09-0500 Diastolic blood pressure 95 mm[Hg] Jerry Robert PA-C Work Phone: [facility] 06-08-2022 14:09-0500 Heart rate 117 /min Jerry Robert PA-C Work Phone: [facility] 06-08-2022 14:09-0500 Systolic blood pressure 135 mm[Hg] Jerry Robert PA-C Work Phone: [facility] 05-19-2022 19:29-0500 Heart rate 102 /min Dr. Nathaly Lainez Work Phone: 3(398)786-261959 [address] 05-19-2022 19:29-0500 SaO2% (BldA) [Mass fraction] 97 % Dr. Nathaly Lainez Work Phone: 6(449)849-032274 [place] [address] 05-19-2022 14:45-0500 Body height 170.[address] Nathaly Lainez Work Phone: 8(316)080-870159 [address] Work Phone: 05-19-2022 14:45-0500 Body mass index (BMI) [Ratio] 24.3 kg/m2 Dr. Nathaly Lainez Work Phone: 4(147)170-623974 [place] [address] 05-19-2022 14:45-0500 Body temperature 96 [degF] Dr. Nathaly Lainez Work Phone: 5(299)800-675574 [place] [address] 05-19-2022 14:45-0500 Body weight 70.[address] Nathaly Lainez Work Phone: 2(256)849-987374 [place] [address] 05-19-2022 14:45-0500 Diastolic blood pressure 87 mm[Hg] Dr. Nathaly Lainez Work Phone: 2(062)891-232174 [place] [address] 05-19-2022 14:45-0500 Respiratory rate 18 /min Dr. Nathaly Lainez Work Phone: 4(153)787-793374 [place] [address] 05-19-2022 14:45-0500 Systolic blood pressure 127 mm[Hg] Dr. Nathaly Lainez Work Phone: 2(547)504-630574 [place] [address] 05-10-2022 00:56-0500 Diastolic blood pressure 75 mm[Hg] Dr. Nathaly Lainez Work Phone: 6(351)589-032574 [place] [address] 05-10-2022 00:56-0500 Heart rate 101 /min Dr. Nathaly Lainez Work Phone: 7(021)083-037674 [place] [address] 05-10-2022 00:56-0500 Respiratory rate 17 /min Dr. Nathaly Lainez Work Phone: 0(900)104-517474 [place] [address] 05-10-2022 00:56-0500 SaO2% (BldA) [Mass fraction] 94 % Dr. Nathaly Lainez Work Phone: [facility] 05-10-2022 00:56-0500 Systolic blood pressure 118 mm[Hg] Dr. Nathaly Lainez Work Phone: [facility] 05-09-2022 19:01-0500 Body height 170.[address] Nathaly Lainez Work Phone: [facility] Work Phone: 05-09-2022 19:01-0500 Body mass index (BMI) [Ratio] 24.3 kg/m2 Dr. Nathaly Lainez Work Phone: [facility] 05-09-2022 19:01-0500 Body temperature 97.5 [degF] Dr. Nathaly Lainez Work Phone: [facility] 05-09-2022 19:01-0500 Body weight 70.[address] Nathaly Lainez Work Phone: [facility] 04-18-2022 14:04-0500 Body height 170.18 cm [facility] Work Phone: 04-18-2022 14:04-0500 Body mass index (BMI) [Ratio] 24.7 kg/m2 [facility] 04-18-2022 14:04-0500 Body temperature 97.2 [degF] [facility] 04-18-2022 14:04-0500 Body weight 71.6 kg [facility] 04-18-2022 14:04-0500 Diastolic blood pressure 88 mm[Hg] [facility] 04-18-2022 14:04-0500 Heart rate 115 /min [facility] 04-18-2022 14:04-0500 Respiratory rate 16 /min [facility] 04-18-2022 14:04-0500 SaO2% (BldA) [Mass fraction] 97 % [facility] 04-18-2022 14:04-0500 Systolic blood pressure 139 mm[Hg] [facility] 04-17-2022 13:53-0500 Body height 170.18 cm [facility] Work Phone: 04-17-2022 13:53-0500 Body mass index (BMI) [Ratio] 24.3 kg/m2 [facility] 04-17-2022 13:53-0500 Body temperature 97.9 [degF] [facility] 04-17-2022 13:53-0500 Body weight 70.3 kg [facility] 04-17-2022 13:53-0500 Diastolic blood pressure 80 mm[Hg] [facility] 04-17-2022 13:53-0500 Heart rate 130 /min [facility] 04-17-2022 13:53-0500 Respiratory rate 18 /min [facility] 04-17-2022 13:53-0500 SaO2% (BldA) [Mass fraction] 97 % [facility] 04-17-2022 13:53-0500 Systolic blood pressure 125 mm[Hg] [facility] 03-27-2022 12:26-0400 Diastolic blood pressure 90 mm[Hg] [facility] 03-27-2022 12:26-0400 Heart rate 103 /min [facility] 03-27-2022 12:26-0400 Respiratory rate 16 /min [facility] 03-27-2022 12:26-0400 SaO2% (BldA) [Mass fraction] 96 % [facility] 03-27-2022 12:26-0400 Systolic blood pressure 130 mm[Hg] [facility] 03-27-2022 10:29-0400 Body height 170.18 cm [facility] Work Phone: 03-27-2022 10:29-0400 Body mass index (BMI) [Ratio] 24.8 kg/m2 [facility] 03-27-2022 10:29-0400 Body temperature 96.7 [degF] [facility] 03-27-2022 10:29-0400 Body weight 72.07 kg [facility] 08-13-2021 15:21-0500 Diastolic blood pressure 80 mm[Hg] Pcp [facility] 08-13-2021 15:21-0500 Heart rate 73 /min Pcp Unknown [facility] 08-13-2021 15:21-0500 Respiratory rate 16 /min Pcp Unknown [facility] 08-13-2021 15:21-0500 SaO2% (BldA) [Mass fraction] 99 % Pcp Unknown [facility] 08-13-2021 15:21-0500 Systolic blood pressure 131 mm[Hg] Pcp Unknown [facility] 08-13-2021 12:41-0500 Body temperature 97.52 [degF] Pcp Unknown [facility] Encounters Encounter Date Encounter Type Care Provider Facility Start: 12-12-2024 End: 12-12-2024 Zohreh Mckeon [facility] Work Phone: -Emergency Department Work Phone: Start: 12-12-2024 End: 12-12-2024 Emergency department patient visit Zohreh Mckeon [facility] Work Phone: -Emergency Department Start: 09-29-2024 End: 09-29-2024 [facility] Work Phone: -Emergency Department Work Phone: Start: 09-29-2024 End: 09-29-2024 Emergency department patient visit [facility] Work Phone: [facility] Work Phone: Start: 09-24-2024 ambulatory Nichelle Mcneil Facili ty:[facility] Start: 09-23-2024 ambulatory Nichelle Mcneil Facili ty:[facility] Start: 09-22-2024 [facility] Start: 09-21-2024 End: 09-21-2024 [facility] Work Phone: -Emergency Department Work Phone: Start: 09-21-2024 End: 09-21-2024 Emergency department patient visit [facility] Work Phone: [facility] Work Phone: Start: 09-21-2024 ambulatory Nichelle Tarun Facili ty:[facility] Start: [facility] Start: [facility] Start: 09-18-2024 ambulatory [facility] Fa cility:[facility] Start: 09-17-2024 [facility] Start: 09-16-2024 Dr. Latricia Aaron MD -Wo [...] Inpatient Physicians Work Phone: Start: 09-09-2024 ambulatory [facility] Start: 09-09-2024 End: 09-16-2024 Evaluation and management of inpatient [facility] Work Phone: [facility] Work Phone: Start: 09-09-2024 End: 09-16-2024 Dr. Latricia Aaron MD -[facility] Un it Work Phone: Start: 09-08-2024 Dr. Brenda Posadas MD -[facility] Work Phone: Start: 09-07-2024 ambulatory [facility] Start: 09-07-2024 observation encounter [facility] Work Phone: [facility] Work Phone: Start: 09-07-2024 Dr. Rosaura friedman MD -Progressive Care Unit Work Phone: Start: 09-05-2024 End: 09-05-2024 [facility] Work Phone: -Emergency Department Work Phone: Start: 09-05-2024 End: 09-05-2024 Emergency department patient visit [facility] Work Phone: [facility] Work Phone: Start: 09-02-2024 Dr. Latricia Aaron MD - [facility] Work Phone: Start: 09-01-2024 ambulatory Zohrehdmitriy Mckeon [facility] Start: 09-01-2024 Dr. Alli Brito MD -[facility] Start: 09-01-2024 Dr. Latricia Aaron MD -Wo [...] End: 09-02-2024 Evaluation and management of inpatient [facility] Work Phone: [facility] Work Phone: Start: 08-26-2024 End: 09-02-2024 Dr. Brenda Posadas MD -Intensive Care Unit Work Phone: Start: 08-26-2024 ambulatory Nicole Trujillo [facility] Start: 08-26-2024 ambulatory Riccardo Ng Facility:[facility] Start: 08-26-2024 Dr. Riccardo Ng MD -[facility] Start: 08-01-2024 End: 08-01-2024 Dr. Riccardo Hillman DO -Emergency Departme nt Work Phone: Start: 08-01-2024 End: 08-01-2024 Emergency department patient visit [facility] Facility:[facility] Start: 07-17-2024 ambulatory [facility] Fa [facility]ility:[facility] Start: 07-11-2024 End: 07-11-2024 Dr. Nicole Trujillo DO -Medical Out Work Phone: Start: 07-11-2024 End: 07-11-2024 ambulatory Nicole Trujillo Facility:[facility] Start: 07-10-2024 End: 07-10-2024 Dr. Nicole Trujillo DO -Medical Out Work Phone: Start: 07-10-2024 End: 07-10-2024 ambulatory Nicole Trujillo Facility:[facility] Start: 07-09-2024 ambulatory Nicole Trujillo Facility:[facility] Start: 07-08-2024 ambulatory Nicole Trujillo Facility:[facility] Start: 07-07-2024 End: 07-07-2024 Dr. Nicole Trujillo DO -Medical Out Work Phone: Start: 07-07-2024 End: 07-07-2024 ambulatory Nicole Trujillo Facility:[facility] Start: 07-06-2024 End: 07-06-2024 Dr. Nicole Trujillo DO -Medical Out Work Phone: Start: 07-06-2024 End: 07-06-2024 ambulatory Nicole Trujillo Facility:[facility] Start: 07-05-2024 End: 07-05-2024 Dr. Nicole Trujillo DO -Medical Out Work Phone: Start: 07-05-2024 End: 07-05-2024 ambulatory Nicole Trujillo Facility:[facility] Start: 07-04-2024 End: 07-04-2024 Dr. Nicole Trujillo DO -Medical Out Work Phone: Start: 07-04-2024 End: 07-04-2024 ambulatory Nicole Trujillo Facility:[facility] Start: 07-03-2024 Dr. Nicole Trujillo DO -[facility] Work Phone: Start: 07-02-2024 Dr. Nicole Trujillo DO -[facility] Work Phone: Start: 07-01-2024 Dr. Nicole Trujillo DO -[facility] Work Phone: Start: 06-30-2024 Dr. Nicole Trujillo DO -[facility] Work Phone: Start: 06-29-2024 End: 07-03-2024 Evaluation and management of inpatient Nicole Trujillo Facility:[facility] Start: 06-29-2024 End: 07-03-2024 Dr. Nicole Trujillo DO -Medical Surgical 3 Work Phone: Start: 06-29-2024 ambulatory Nicole Trujillo [facility] Start: 05-23-2024 End: 05-24-2024 Emergency department patient visit DR RAYMUNDO VIEIRA DO [facility] Start: 04-29-2024 Dr. Talisha chen MD -[facility] Work Phone: Start: 04-28-2024 Dr. aTlisha chen MD -[facility] Work Phone: Start: 04-25-2024 ambulatory Nicole Trujillo [facility] Start: 04-25-2024 End: 04-29-2024 Evaluation and management of inpatient Nicole Trujillo Facility:[facility] Start: 04-25-2024 End: 04-29-2024 Dr. Talisha Boykin MD -Medical Surgical 3 Work Phone: Start: 02-14-2024 End: 02-19-2024 ambulatory Brandon Adames Facility:[facility] Start: 02-06-2024 End: 02-06-2024 Telephone encounter Gerda Rivero MD Work Phone: Endocrine Surgery Comment on above: Appointment ( Jimena trejo attempts to contact patient to schedule appointment with regarding incidental growth found in adrenal gland, not able to contact. Scheduled appointment with for 02/20 at 1:30 PM and mailed out appointment reminder.) Start: 01-10-2024 End: 01-10-2024 Emergency department patient visit [facility] Facility:[facility] Start: 12-29-2023 [facility] Start: 12-29-2023 End: 01-01-2024 Evaluation and management of inpatient [facility] Facility:[facility] Start: 11-20-2023 Telephone encounter Stephanie Whiting [facility] Comment on above: Orders ([facility] defer ral) Start: 10-22-2023 Telephone encounter Stephanie Whiting [facility] Comment on above: Orders ([facility] order contact/SNF ltr) Start: 10-18-2023 End: 10-19-2023 ambulatory ALFREDOERICKA CALDWELLL Facility:[place] [facility] Start: 10-18-2023 Telephone encounter Diya Patten MD Work Phone: [facility] Comment on above: returned nursing hair e call; Patient Update Start: 10-15-2023 End: 10-15-2023 Emergency department patient visit [facility]-Emergency Department Work Phone: Start: 10-12-2023 Registered Referred [facility] Start: 10-09-2023 Telephone encounter Diya Patten MD Work Phone: [facility] Start: 10-08-2023 Registered Referred [facility] Start: 10-04-2023 Telephone encounter Diya Patten MD Work Phone: [facility] Comment on above: Patient Update Start: 10-02-2023 Telephone encounter Diya Patten MD Work Phone: [facility] Comment on above: Contact Center Call; Patient Update; PHYSICIAN INSTRUCTIONS Start: 10-01-2023 Telephone encounter Diya Patten MD Work Phone: [facility] Comment on above: Patient Update Start: 10-01-2023 Registered Referred [facility] Start: 09-29-2023 Registered [facility] Start: 09-27-2023 Telephone encounter Diya Patten MD Work Phone: [facility] Comment on above: Patient Question; Ab scess Start: 09-24-2023 Registered Referred [facility] Start: 09-17-2023 Registered Referred [facility] Work Phone: [facility] Start: 09-12-2023 Telephone encounter Diya Patten MD Work Phone: [facility] Comment on above: Appointment; Radiolo gy XR Start: 09-10-2023 End: 09-10-2023 ambulatory [facility] Work Phone: [facility] Work Phone: Start: 09-10-2023 End: 09-10-2023 Departed Referred [facility] Work Phone: [facility] Start: 09-02-2023 End: 09-07-2023 Evaluation and management of inpatient [facility] Facility:Zain[facility] Start: 09-02-2023 End: 09-02-2023 Emergency department [facility] Start: 06-19-2023 End: 06-19-2023 Emergency department patient visit [facility] Work Phone: [facility]-Emergency Department Work Phone: Start: 06-18-2023 Registered Recurring [facility] Work Phone: [facility]-Patient Link Work Phone: Start: 06-16-2023 Non-patient / Non-visit [facility] Work Phone: [facility] Work Phone: Start: 06-15-2023 Non-patient / Non-visit [facility] Work Phone: [facility] Inpatient Physicians Work Phone: Start: 06-14-2023 Non-patient / Non-visit [facility] Work Phone: [facility] Work Phone: Start: 06-13-2023 Non-patient / Non-visit [facility] Work Phone: [facility] Inpatient [facility] Work Phone: Start: 06-13-2023 End: 06-16-2023 Evaluation and management of inpatient [facility] Work Phone: [facility]-Progressive Care Unit Work Phone: Start: 05-26-2023 End: 05-26-2023 Emergency department patient visit [facility] Work Phone: [facility]-Emergency Department Work Phone: Start: 05-22-2023 End: 05-22-2023 Emergency department patient visit [facility] Work Phone: [facility]-Emergency Department Work Phone: Start: 05-07-2023 Non-patient / Non-visit [facility] Work Phone: [facility] In[facility] Work Phone: Start: 05-06-2023 Non-patient / Non-visit [facility] Work Phone: [facility] Start: 05-06-2023 Non-patient / Non-visit [facility] Work Phone: [facility] Work Phone: Start: 05-05-2023 Non-patient / Non-visit [facility] Work Phone: [facility] Start: 05-05-2023 Non-patient / Non-visit [facility] Work Phone: [facility] Work Phone: Start: 05-04-2023 Non-patient / Non-visit [facility] Work Phone: [facility] Work Phone: Start: 05-04-2023 Non-patient / Non-visit [facility] Work Phone: [facility] Start: 05-03-2023 End: 05-07-2023 Evaluation and management of inpatient [facility] Work Phone: [facility]Progressive [facility] Work Phone: Start: 04-18-2023 End: 04-18-2023 ambulatory [facility] Work Phone: [facility] Work Phone: Start: 04-18-2023 End: 04-18-2023 Patient encounter procedure [facility] Work Phone: [facility] Work Phone: Start: 04-05-2023 End: 04-05-2023 ambulatory [facility] Work Phone: [facility] Work Phone: Start: 04-05-2023 End: 04-05-2023 Patient encounter procedure [facility] Work Phone: [facility]Sleep Lab Work Phone: Start: 03-22-2023 End: 03-22-2023 Patient encounter procedure [facility] Work Phone: [facility] Work Phone: Start: 02-28-2023 End: 02-28-2023 Patient encounter procedure [facility] Work Phone: [facility] Work Phone: Start: 02-06-2023 Non-patient / Non-visit [facility] Work Phone: [facility] Work Phone: Start: 02-02-2023 Non-patient / Non-visit [facility] Work Phone: [facility] Work Phone: Start: 02-02-2023 End: 02-03-2023 Evaluation and management of inpatient [facility] Work Phone: [facility] Work Phone: Start: 02-02-2023 End: 02-03-2023 observation encounter [facility] Work Phone: [facility] Work Phone: Start: 01-03-2023 Non-patient / Non-visit [facility] Work Phone: [facility] Work Phone: Start: 01-02-2023 Non-patient / Non-visit [facility] Work Phone: [facility] Work Phone: Start: 01-01-2023 Non-patient / Non-visit [facility] Work Phone: [facility] Work Phone: Start: 01-01-2023 End: 01-03-2023 Evaluation and management of inpatient [facility] Work Phone: [facility] Work Phone: Start: 10-01-2022 End: 10-01-2022 Emergency department patient visit Dr. Nathaly Lainez Work Phone: [facility] Work Phone: Start: 10-01-2022 End: 10-01-2022 Dr. Nathaly Lainez Work Phone: [facility]-Emergency Department Start: 09-18-2022 End: 09-18-2022 Emergency department patient visit Dr. Nathaly Lainez Work Phone: [facility] Work Phone: Start: 09-18-2022 End: 09-18-2022 Dr. Nathaly Lainez Work Phone: [facility]-Emergency Department Start: 09-11-2022 End: 09-11-2022 Emergency department patient visit Dr. Nathaly Lainez Work Phone: [facility] Work Phone: Start: 09-11-2022 End: 09-11-2022 Dr. Nathaly Lainez Work Phone: [facility]-Emergency Department Start: 09-09-2022 End: 09-10-2022 Emergency department patient visit Dr. Nathaly Lainez Work Phone: [facility]-Emergency Department Start: 09-09-2022 End: 09-10-2022 Dr. Nathaly Lainez Work Phone: [facility]-Emergency Department Start: 09-08-2022 Non-patient / Non-visit Dr. Rashida Lainez Work Phone: [facility] Start: 09-08-2022 End: 09-08-[address] Nathaly Lainez Work Phone: [facility] Work Phone: Start: 09-08-2022 End: 09-08-[address] Nathaly Lainez Work Phone: [facility]-Cardiovascular Services Start: 09-08-2022 End: 09-08-2022 Dr. Nathaly Lainez Work Phone: [facility] Start: 09-05-2022 Non-patient / Non-visit Dr. Rashida Lainez Work Phone: [facility] Start: 09-05-2022 End: 09-05-2022 Emergency department patient visit Dr. Nathaly Lainez Work Phone: [facility]Emergency Department Start: 09-05-2022 End: 09-05-2022 Dr. Nathaly Lainez Work Phone: [facility]-Emergency Department Start: 09-04-2022 ambulatory JEISON FORDE DPM Faci lity:R Start: 09-02-2022 Non-patient / Non-visit Dr. Rashida Lainez Work Phone: [facility] Inpatient Physicians Start: 09-02-2022 Dr. Nathaly reyes Work Phone: [facility] Inpatient Physicians Start: 09-01-2022 Non-patient / Non-visit Dr. Rashida Lainez Work Phone: [facility] Inpatient Physicians Start: 09-01-2022 Dr. Nathaly reyes Work Phone: [facility] Inpatient Physicians Start: 08-31-2022 Non-patient / Non-visit Dr. Rashida Lainez Work Phone: [facility] Inpatient Physicians Start: 08-31-2022 Dr. Nathaly reyes Work Phone: [facility] Inpatient Physicians Start: 08-31-2022 Non-patient / Non-visit Dr. Rashida Lainez Work Phone: [facility] Start: 08-31-2022 Dr. Nathaly reyes Work Phone: [facility] Start: 08-30-2022 Non-patient / Non-visit Dr. Rashida Lainez Work Phone: [facility] Inpatient Physicians Start: 08-30-2022 Dr. Nathaly reyes Work Phone: [phone] [place] [address] Inpatient Physicians Start: 08-30-2022 End: 09-02-2022 Evaluation and management of inpatient Dr. Nathaly Lainez Work Phone: [phone] [address] [place], [place] [address]Medical Surgical 3 Start: 08-30-2022 End: 09-02-2022 Dr. Nathaly Lainez Work Phone: [phone] [address] [place], [place] [address]Medical Surgical 3 Start: 08-23-2022 End: 08-23-[address] Nathaly Lainez Work Phone: [phone] [place] [address] Vascular Surgery Start: 08-23-2022 End: 08-23-2022 Dr. Nathaly Lainez Work Phone: [phone] [place] [address] Vascular Surgery Start: 08-17-2022 Non-patient / Non-visit Dr. Rashida Lainez Work Phone: [phone] [place] [address]-BVS Start: 08-17-2022 End: 08-17-[address] Nathaly Lainez Work Phone: [phone] [place] [address]-Cardiovascular Services Start: 08-17-2022 End: 08-17-2022 Dr. Nathaly Lainez Work Phone: [phone] [place] [address]-BVS Start: 08-14-2022 End: 08-14-2022 Emergency department patient visit Dr. Nathaly Lainez Work Phone: [phone] [place] [address]-Emergency Department Start: 08-14-2022 End: 08-14-2022 Dr. Nathaly Lainez Work Phone: [phone] [place] [address]-Emergency Department Start: 08-10-2022 Non-patient / Non-visit Dr. Rashida Lainez Work Phone: [phone] [place] [address]-BVS Start: 08-10-2022 Dr. [facility] Start: 08-10-2022 End: 08-10-2022 Admission to same day surgery center Dr. Nathaly Lainez Work Phone: [facility]/Special Procedures Start: 08-10-2022 End: 08-10-[address] Nathaly Lainez Work Phone: [facility] Work Phone: Start: 08-10-2022 End: 08-10-2022 Dr. Nathaly Lainez Work Phone: [facility]/Special Procedures Start: 08-09-2022 End: 08-09-[address] Nathaly Lainez Work Phone: [facility] Vascular Surgery Start: 08-09-2022 End: 08-09-2022 Dr. Nathaly Lainez Work Phone: [facility] Vascular Surgery Start: 08-06-2022 End: 08-06-2022 Emergency department patient visit Dr. Nathaly Lainez Work Phone: [facility]-Emergency Department Start: 08-06-2022 End: 08-06-2022 Dr. Nathaly Lainez Work Phone: [facility]-Emergency Department Start: 08-03-2022 End: 08-03-2022 Emergency department patient visit Dr. Nathaly Lainez Work Phone: [facility]-Emergency Department Start: 08-03-2022 End: 08-03-2022 Dr. Nathaly Lainez Work Phone: [facility]-Emergency Department Start: 07-25-2022 End: 07-25-2022 Emergency department patient visit Dr. Nathaly Lainez Work Phone: [facility]-Emergency Department Start: 07-25-2022 End: 07-25-2022 Dr. Nathaly Lainez Work Phone: [facility]-Emergency Department Start: 06-29-2022 End: 06-29-[address] Nathaly Lainez Work Phone: [facility]-Outpatient Bone Densitometry Start: 06-29-2022 End: 06-29-2022 Dr. Nathaly Lainez Work Phone: [facility]-Outpatient Bone Densitometry Start: 06-21-[address] Nathaly Lainez Work Phone: [facility]-Physical Therapy Start: 06-21-2022 Dr. Nathaly reyes Work Phone: [facility]-Physical Therapy Start: 06-08-2022 End: 06-08-2022 Postop follow up visit related to original px Jerry Jones PA-C Work Phone: [facility] [place] Comment on above: Closed 3-part fractu re of proximal humerus, right, with routine healing, subsequent encounter (Primary Dx) Start: 05-19-2022 End: 05-19-2022 Emergency department patient visit Dr. Nathaly Lainez Work Phone: [facility]-Emergency Department Start: 05-19-2022 End: 05-19-2022 Dr. Nathaly Lainez Work Phone: [facility]-Emergency Department Start: 05-09-2022 End: 05-10-2022 Emergency department patient visit Dr. Nathaly Lainez Work Phone: [facility]-Emergency Department Start: 05-02-2022 End: 05-03-2022 ambulatory [facility] Start: 04-24-2022 End: 04-24-[address] Nathaly Lainez Work Phone: [facility] Orthopaedic Specia Start: 04-18-2022 End: 04-18-2022 Emergency department patient visit [facility]-Emergency Department Start: 04-17-2022 End: 04-17-2022 Emergency department patient visit [facility]-Emergency Department Start: 03-27-2022 End: 03-27-2022 Emergency department patient visit [facility]-Emergency Department Start: 08-13-2021 End: 08-13-2021 Emergency department patient visit Alex Tapia [facility] 16 Start: 08-25-2019 End: 08-25-2019 Patient encounter procedure [facility] Start: 07-20-2018 End: 07-21-2018 Patient encounter procedure [facility] Start: 06-08-2018 End: 06-12-2018 Evaluation and management of inpatient [facility] Start: 12-14-2017 End: 12-14-2017 Emergency department patient visit UNKNOWN PROVIDER [facility] Start: 11-30-2017 End: 12-05-2017 Patient encounter procedure [facility] Procedures Date Procedure Procedure Detail Performing Clinician Start: 12-12-2024 X-ray of ankle, three or more views Zohreh Terence [employer]ATHER ETCHER-C Work Phone: Start: 12-12-2024 X-ray of foot, three or more views Zohreh Terence [employer] [employer]-C Work Phone: Start: 09-29-2024 Blood count smear mcrscp w/mnl difrntl wbc count Zohreh Mckeon [employer] Work Phone: Start: 09-29-2024 Estimated creatinine clearance Zohreh Mckeon [employer] Work Phone: Start: 09-29-2024 Mean corpuscular hemoglobin concentration determination Zohreh Terence [employer]-C Work Phone: Start: 09-29-2024 Nucleated red blood cell count procedure Zohreh Terence [employer]-C Work Phone: Start: 09-29-2024 Platelet mean volume determination Zohreh Terence [employer]-C Work Phone: Start: 09-29-2024 Triacylglycerol lipase measurement Zohreh Terence [employer] Work Phone: Start: 09-29-2024 Urine microscopy: red cells Zohrehdmitriy Mckeon [employer] [employer] Work Phone: Start: 09-29-2024 Urnls dip stick/tablet reagent auto microscopy Zohreh Terence [employer] [employer]-C Work Phone: Start: 09-21-2024 Urine microscopy: red cells Zohreh Mckeon [employer] Work Phone: Start: 09-21-2024 Urnls dip stick/tablet reagent auto microscopy Zohreh Mckeon [employer] [employer] Work Phone: Start: 09-21-2024 Estimated creatinine clearance Zohreh Mckeon [employer] [employer] Work Phone: Start: 09-21-2024 Triacylglycerol lipase measurement Zohreh Mckeon [employer] [employer] Work Phone: Start: 09-21-2024 Blood count smear mcrscp w/mnl difrntl wbc count Zohreh Mckeon [employer] Work Phone: Start: 09-21-2024 Mean corpuscular hemoglobin concentration determination Zohreh Mckeon [employer] Work Phone: Start: 09-21-2024 Nucleated red blood cell count procedure Zohreh Mckeon [employer] [employer] Work Phone: Start: 09-21-2024 Platelet mean volume determination Zohreh Mckeon [employer] Work Phone: Start: 09-16-2024 Blood count smear mcrscp w/mnl difrntl wbc count Zohreh Mckeon [employer] Work Phone: Start: 09-16-2024 Mean corpuscular hemoglobin concentration determination Zohreh Mckeon [employer] Work Phone: Start: 09-16-2024 Nucleated red blood cell count procedure Zohreh Mckeon [employer] Work Phone: Start: 09-16-2024 Platelet mean volume determination Zohreh Mckeon [employer] Work Phone: Start: 09-16-2024 Estimated creatinine clearance Zohreh Mckeon [employer] [employer] Work Phone: Start: 09-12-2024 Urine microscopy: red cells Zohreh Mckeon [employer] Work Phone: Start: 09-12-2024 Urnls dip stick/tablet reagent auto microscopy Zohreh Mckeon [employer] Work Phone: Start: 09-12-2024 Urine culture [facility] Work Phone: Start: 09-11-2024 Plain X-ray abdomen [facility] Work Phone: Start: 09-09-2024 Urine culture [facility] Work Phone: Start: 09-09-2024 Serum inorganic phosphate measurement Zohreh Mckeon [employer] Work Phone: Start: 09-08-2024 Blood culture [facility] Work Phone: Start: 09-08-2024 Clostridium difficile detection [facility] Work Phone: Start: 09-08-2024 Nucleic acid assay [facility] Work Phone: Start: 09-08-2024 Iadna-dna/rna gi pthgn multiplex probe tq 6-11 Zohreh Mckeon [employer] [employer] Work Phone: Start: 09-08-2024 Parathyroid hormone measurement Zohreh Mckeon [employer] Work Phone: Start: 09-08-2024 Vitamin D, 25-hydroxy measurement Zohreh Mckeon [employer] [employer] Work Phone: Start: 09-08-2024 Calcium measurement Zohreh Mckeon [employer] [employer] Work Phone: Start: 09-07-2024 Computed tomography of abdomen and pelvis with intravenous contrast [facility] Work Phone: Start: 09-07-2024 Triacylglycerol lipase measurement Zohreh Mckeon [employer] [employer] Work Phone: Start: 09-05-2024 Blood count smear mcrscp w/mnl difrntl wbc count Zohreh Mckeon [employer] Work Phone: Start: 09-05-2024 Estimated creatinine clearance Zohreh Mckeon [employer] [employer] Work Phone: Start: 09-05-2024 Mean corpuscular hemoglobin concentration determination Zohreh Mckeon [employer] [employer] Work Phone: Start: 09-05-2024 Nucleated red blood cell count procedure Zohreh Mckeon [employer] Work Phone: Start: 09-05-2024 Platelet mean volume determination Zohreh WOODC Work Phone: Start: 09-05-2024 Triacylglycerol lipase measurement Zohreh ELIZABETH Work Phone: Start: 09-02-2024 Blood count smear mcrscp w/mnl difrntl wbc count Zohreh WOODC Work Phone: Start: 09-02-2024 Estimated creatinine clearance Zohreh ELIZABETH Work Phone: Start: 09-02-2024 Mean corpuscular hemoglobin concentration determination Zohreh ELIZABETH Work Phone: Start: 09-02-2024 Nucleated red blood cell count procedure Zohreh ELIZABETH Work Phone: Start: 09-02-2024 Platelet mean volume determination Zohreh ELIZABETH Work Phone: Start: 09-02-2024 Serum inorganic phosphate measurement Zohreh WOOD Work Phone: Start: 08-29-2024 Iadna-dna/rna gi pthgn multiplex probe tq 6-11 Zohreh Mckeon [facility] Work Phone: Start: 08-29-2024 Clostridium difficile detection [facility] Work Phone: Start: 08-29-2024 Nucleic acid assay [facility] Work Phone: Start: 08-27-2024 MRI of lumbar spine [facility] Work Phone: Start: 08-27-2024 Calculation of international normalized ratio Zohreh WOOD Work Phone: Start: 08-26-2024 CT angiography of lower limb [facility] Work Phone: Start: 08-26-2024 Assay of lactate Zohreh Mckeon [facility] Work Phone: Start: 08-26-2024 Plain chest X-ray [facility] Work Phone: Start: 08-01-2024 Computed tomography of abdomen and pelvis with intravenous contrast [facility] Work Phone: Start: 08-01-2024 Urine culture [facility] Work Phone: Start: 07-02-2024 CT of abdomen and pelvis with oral contrast [facility] Work Phone: Start: 06-29-2024 Plain chest X-ray [facility] Work Phone: Start: 06-29-2024 Computed tomography of abdomen and pelvis with intravenous contrast [facility] Work Phone: Start: 06-29-2024 Urine culture [facility] Work Phone: Start: 04-25-2024 Computed tomography of abdomen and pelvis with intravenous contrast [facility] Work Phone: Start: 10-15-2023 Plain x-ray of pelvis and lower extremity Start: 09-02-2023 Antibody screen IBETH ALEJANDRO Comment on above: Order Comment: Specimen Type: BLOOD SPEC IMEN Ordering Facility: [facility] Address: [address] [place] [address] Performed By: #### 5 [id number] #### [facility] CLIA [id number] [address] [place] [address] [place] Start: 09-02-2023 Plain chest X-ray [facility] Work Phone: Start: 09-02-2023 Plain x-ray of pelvis and lower extremity [facility] Work Phone: Start: 06-19-2023 Plain x-ray of pelvis and lower extremity [facility] Work Phone: Start: 06-19-2023 Radiologic examination of knee [facility] Work Phone: Start: 06-15-2023 Radiography of ankle [facility] Work Phone: Start: 06-12-2023 CT angiography of chest with contrast [facility] Work Phone: Start: 05-26-2023 Plain chest X-ray [facility] Work Phone: Start: 05-22-2023 X-ray of both feet [facility] Work Phone: Start: 05-03-2023 SARS-CoV-2 & FLU Antigen (Rapid) [facility] Work Phone: Start: 05-03-2023 Viral antigen assay [facility] Work Phone: Start: 05-03-2023 Plain chest X-ray [facility] Work Phone: Start: 02-02-2023 CT angiography of chest with contrast [facility] Work Phone: Start: 02-02-2023 Plain chest X-ray [facility] Work Phone: Start: 01-01-2023 SARS-CoV-2 & FLU Antigen (Rapid) [facility] Work Phone: Start: 01-01-2023 CT angiography of chest with contrast [facility] Work Phone: Start: 10-01-2022 Diagnostic radiography of [...] DTaP,Tdap,Td Vaccine (2 - Td or Tdap) [facility] Start: 12-12-[address] [facility] Start: 09-29-2024 End: 09-29-2024 [facility] Start: 09-21-[address] [facility] Start: 09-16-2024 Patient discharge [facility] Start: 09-16-[address] [facility] Start: 09-14-[address] [facility] Start: 09-14-2024 Care planning and pr oblem solving actions [facility] Start: 09-11-[address] [facility] Start: 09-09-2024 Admission procedure [facility] Start: 09-08-[address] [facility] Start: 09-07-2024 Following clinical pathway protocol [facility] Start: 09-07-2024 Assessment of risk o f venous thromboembolism [facility] Start: 09-07-2024 Care regimes management [facility] Start: 09-07-2024 Fall prevention [facility] Start: 09-07-2024 Inhalation therapy procedure [facility] Start: 09-07-2024 Insertion of cathete r into peripheral vein [facility] Start: 09-07-2024 Measuring intake and output [facility] Start: 09-07-2024 Notification of physician [facility] Start: 09-07-2024 Providing care accor ding to standard [facility] Start: 09-07-2024 Provision of activit y privileges [facility] Start: 09-07-2024 Referral to occupati onal therapist [facility] Start: 09-07-2024 Referral to service [facility] Start: 09-07-2024 Tobacco use cessatio n education [facility] Start: 09-07-2024 End: 09-07-2024 [facility] Start: 09-07-2024 Verification routine [facility] Start: 09-07-2024 Admission procedure [facility] Start: 09-07-2024 Hospital admission, emergency, from emergency room, medical nature [facility] Start: 09-07-2024 Serum inorganic phos phate measurement [facility] Start: 09-07-2024 Patient referral to dietitian [facility] Start: 09-05-[address] [facility] Start: 09-02-2024 Referral to service [facility] Start: 09-02-2024 Patient discharge [facility] Start: 09-01-[address] [facility] Start: 08-27-[address] [facility] Start: 08-26-2024 Following clinical pathway protocol [facility] Start: 08-26-2024 Assessment of risk o f venous thromboembolism [facility] Start: 08-26-2024 Care regimes management [facility] Start: 08-26-2024 Incentive spirometry [facility] Start: 08-26-2024 Insertion of cathete r into peripheral vein [facility] Start: 08-26-2024 Measuring intake and output [facility] Start: 08-26-2024 Notification of physician [facility] Start: 08-26-2024 Providing care accor ding to [facility] Start: 08-26-2024 Referral to occupati onal therapist [facility] Start: 08-26-2024 Referral to service [facility] Start: 08-26-2024 Referral to vascular surgeon [facility] Start: 08-26-2024 Vital signs measurements [facility] Start: 08-26-2024 End: 08-26-2024 [facility] Start: 08-26-2024 Verification routine [facility] Start: 08-26-2024 Admission procedure [facility] Start: 08-26-2024 Hospital admission, emergency, from emergency room, medical nature [facility] Start: 08-26-2024 Patient referral to dietitian [facility] Start: 08-01-[address] [facility] Start: 07-03-2024 Patient discharge [facility] Start: 07-01-[address] [facility] Start: 06-30-[address] [facility] Start: 06-30-[address] [facility] Start: 06-30-2024 Referral to occupati onal therapist [facility] Start: 06-30-2024 Referral to service [facility] Start: 06-29-2024 Assessment of risk o f venous thromboembolism [facility] Start: 06-29-2024 Care regimes management [facility] Start: 06-29-2024 Insertion of cathete r into peripheral vein [facility] Start: 06-29-2024 Measuring intake and output [facility] Start: 06-29-2024 Notification of physician [facility] Start: 06-29-2024 Providing care accor ding to [facility] Start: 06-29-2024 Provision of activit y privileges [facility] Start: 06-29-2024 End: 06-29-2024 [facility] Start: 06-29-2024 End: 06-29-2024 Following clinical pathway protocol [facility] Start: 06-29-2024 Admission procedure [facility] Start: 04-29-2024 Patient discharge [facility] Start: 04-29-2024 Care planning and pr oblem solving actions [facility] Start: 04-29-[address] [facility] Start: 04-28-20[address] [facility] Start: 04-26-2024 End: 04-27-2024 [facility] Start: 04-25-2024 Care planning and pr oblem solving actions [facility] Start: 04-25-2024 Assessment of risk o f venous thromboembolism [facility] Start: 04-25-2024 Care regimes management [facility] Start: 04-25-2024 Consultation for treatment [facility] Start: 04-25-2024 Inhalation therapy procedure [facility] Start: 04-25-2024 Insertion of cathete r into peripheral vein [facility] Start: 04-25-2024 Notification of physician [facility] Start: 04-25-2024 Patient referral to dietitian [facility] Start: 04-25-2024 Providing care accor ding to standard [facility] Start: 04-25-2024 Provision of activit y privileges [facility] Start: 04-25-2024 Referral to occupati onal therapist [facility] Start: 04-25-2024 Referral to service [facility] Start: 04-25-2024 End: 04-25-2024 [facility] Start: 04-25-2024 Care of central veno us catheter [facility] Start: 04-25-2024 Following clinical pathway protocol [facility] Start: 04-25-2024 Admission procedure [facility] Start: 04-25-2024 Patient referral to dietitian [facility] Start: 02-21-2024 End: 02-21-2024 Patient encounter procedure 02/21/2024 1:30 PM EDT Office Visit Endocrine Surgery [address] [place] [address] Gerda Rivero MD [address] [address] [facility] Comment on above: [facility] Start: 02-03-2024 Covid-19 Vaccine ( season) Covid-19 Vaccine ( season) [facility] Start: 02-03-2024 Influenza vaccination Influenza Vacc ine (#1) [facility] Start: 12-04-2023 Hemoglobin A1c measurement HbA1C [facility] Start: 10-23-2023 End: 10-23-2023 Patient encounter procedure 10/23/2023 1:15 PM EDT Office Visit [facility] [address] [place] [address] Gadiel Washington PA-C [address] [place] [address] PO [facility] Comment on above: PO Start: 09-02-2023 End: 09-02-2023 [facility] Start: 06-19-[address] [facility] Start: 06-16-2023 Patient discharge [facility] Start: 06-15-2023 Referral to motor carrier inspector [facility] Start: 06-15-2023 Care regimes management [facility] Start: 06-13-2023 Blood chemistry [facility] Start: 06-13-2023 Following clinical pathway protocol [facility] Start: 06-13-2023 Assessment of risk o f venous thromboembolism [facility] Start: 06-13-2023 Fluid restriction [facility] Start: 06-13-2023 Insertion of cathete r into peripheral vein [facility] Start: 06-13-2023 Measuring intake and output [facility] Start: 06-13-2023 Oxygen therapy [facility] Start: 06-13-2023 Providing care accor ding to standard [facility] Start: 06-13-2023 Provision of activit y privileges [facility] Start: 06-13-2023 Referral to occupati onal therapist [facility] Start: 06-13-2023 Referral to service [facility] Start: 06-13-2023 End: 06-13-2023 [facility] Start: 06-13-2023 Verification routine [facility] Start: 06-13-2023 Admission procedure [facility] Start: 06-13-2023 Patient referral to dietitian [facility] Start: 06-12-[address] [facility] Start: 05-26-[address] [facility] Start: 05-11-2023 Blood chemistry [facility] Start: 05-10-2023 Blood chemistry [facility] Start: 05-09-2023 Blood chemistry [facility] Start: 05-08-2023 Blood chemistry [facility] Start: 05-07-2023 Patient discharge [facility] Start: 05-04-2023 Patient referral [facility] Work Phone: Start: 05-03-[address] [facility] Start: 05-03-2023 Referral to press box custodian [facility] Start: 05-03-2023 Ambulation without limitation [facility] Start: 05-03-2023 Assessment of risk o f venous thromboembolism [facility] Start: 05-03-2023 Care regimes management [facility] Start: 05-03-2023 Inhalation therapy procedure [facility] Start: 05-03-2023 Insertion of cathete r into peripheral vein [facility] Start: 05-03-2023 Measuring intake and output [facility] Start: 05-03-2023 Notification of physician [facility] Start: 05-03-2023 Oxygen therapy [facility] Start: 05-03-2023 Providing care accor ding to standard [facility] Start: 05-03-2023 Referral to occupati onal therapist [facility] Start: 05-03-2023 Referral to service [facility] Start: 05-03-[address] [facility] Start: 05-03-2023 Following clinical pathway protocol [facility] Start: 05-03-2023 Verification routine [facility] Start: 05-03-2023 Admission procedure [facility] Start: 05-03-2023 Hospital admission, emergency, from emergency room, medical nature [facility] Start: 05-03-[address] [facility] Start: 05-03-[address] [facility] Start: 05-03-[address] [facility] Start: 05-03-2023 Patient referral to dietitian [facility] Start: 02-03-2023 Patient discharge [facility] Start: 02-02-2023 Following clinical pathway protocol [facility] Start: 02-02-2023 Ambulation without limitation [facility] Start: 02-02-2023 Assessment of risk o f venous thromboembolism [facility] Start: 02-02-2023 Care regimes management [facility] Start: 02-02-2023 Insertion of cathete r into peripheral vein [facility] Start: 02-02-2023 Measuring intake and output [facility] Start: 02-02-2023 Notification of physician [facility] Start: 02-02-2023 Providing care accor ding to standard [facility] Start: 02-02-[address] [facility] Start: 02-02-2023 Oxygen therapy [facility] Start: 02-02-2023 Verification routine [facility] Start: 02-02-2023 Admission procedure [facility] Start: 02-02-[address] [facility] Start: 02-02-2023 Covid-19 Vaccine () Covid-19 Vaccine () [facility] Start: 02-02-2023 Brain natriuretic pe ptide measurement [facility] Start: 02-02-[address] [facility] Start: 01-03-2023 Patient discharge [facility] Start: 01-01-2023 Ambulation without limitation [facility] Start: 01-01-2023 Assessment of risk o f venous thromboembolism [facility] Start: 01-01-2023 Care regimes management [facility] Start: 01-01-2023 Catheterization of vein [facility] Start: 01-01-2023 Insertion of cathete r into peripheral vein [facility] Start: 01-01-2023 Measuring intake and output [facility] Start: 01-01-2023 Notification of physician [facility] Start: 01-01-2023 Providing care accor ding to standard [facility] Start: 01-01-[address] [facility] Start: 01-01-2023 Admission procedure [facility] Start: 01-01-2023 Following clinical pathway protocol [facility] Start: 01-01-[address] [facility] Start: 09-02-2022 Patient discharge [facility] Start: 09-01-2022 Referral to service [facility] Start: 09-01-[address] [facility] Start: 09-01-[address] [facility] Start: 08-31-2022 Amputation of toe Amputation T oe/Foot (Right) [facility] Start: 08-31-[address] [facility] Start: 08-31-2022 Blood chemistry [facility] Start: 08-30-2022 Care regimes management [facility] Start: 08-30-2022 Notification of physician [facility] Start: 08-30-[address] [facility] Start: 08-30-2022 Assessment of risk o f venous thromboembolism [facility] Start: 08-30-[address] [facility] Start: 08-30-2022 Consultation for treatment [facility] Start: 08-30-2022 Insertion of cathete r into peripheral vein [facility] Start: 08-30-[address] [facility] Start: 08-30-2022 Providing care accor ding to standard [facility] Start: 08-30-2022 Referral to service [facility] Start: 08-30-2022 Tobacco use cessatio n education [facility] Start: 08-30-[address] [facility] Start: 08-30-2022 Following clinical pathway protocol [facility] Start: 08-30-2022 Admission procedure [facility] Start: 08-30-2022 Verification routine [facility] Start: 08-30-[address] [facility] Start: 08-30-2022 End: 08-30-2022 Blood culture [facility] Start: 08-09-2022 Patient referral [facility] Work Phone: Start: 07-20-2022 End: 07-20-2022 Patient encounter procedure 07/20/2022 Office Visit Orthopedic Surgery Jerry Jones PA-C 1 [facility] [address] [place] [address] [facility] [place] Start: 07-20-2022 End: 07-20-2022 Documentation procedure 07/20/2022 Documentation Orthopedic Surgery [facility] [place] Start: 05-19-[address] [facility] Start: 02-02-2022 Influenza vaccination Influenza Vacc ine (#1) [facility] Start: 08-23-2021 Shingrix Vaccine (1 of 2) Mcmillan grix Vaccine (1 of 2) [facility] Start: 08-23-2021 Zoster Vaccines (1 of 2) Zoste r Vaccines (1 of 2) [facility] Start: 02-23-2021 COVID-19 Vaccine (3 - Booster for Moderna series) COVID-19 Vaccine (3 - Booster for Moderna series) [facility] Start: 2020 Hepatitis B surface antibody level LDL Cholesterol [facility] Start: 03-14-2020 Annual PCP Team Control Clerk yamil Disease Visit Annual PCP Team Chronic Disease Visit [facility] Start: 06-19-2019 Screening for malign ant neoplasm of cervix [facility] Start: 06-18-2019 Screening for malign ant neoplasm of cervix Pap Testing [facility] Start: 01-31-2019 Screening for malign ant neoplasm of colon [facility] Start: 08-23-2016 Screening for malign ant neoplasm of colon [facility] Start: 10-14-2013 Screening for malign ant neoplasm of breast Mammogram Screening [facility] Start: 2011 Screening for malign ant neoplasm of breast Mammogram [facility] Start: 08-23-2001 Screening for malign ant neoplasm of cervix [facility] Start: 08-23-1992 Screening for malign ant neoplasm of cervix Pap Smear [facility] Start: 08-23-1990 DTaP/Tdap/Td Vaccine s (1 - Tdap) DTaP/Tdap/Td Vaccines (1 - Tdap) [facility] Start: 08-23-1990 Hepatitis B Vaccine (1 of 3 - 19+ 3-dose series) Hepatitis B Vaccine (1 of 3 - 19+ 3-dose series) [facility] Start: 08-23-1990 Urine screening for protein Diabetes: Urine Protein Screening [facility] Start: 08-23-1989 BP Controlled (<130/80) BP Controlle d (<130/80) [facility] Start: 08-23-1989 Hepatitis C screening Hepatitis C Sc reening [facility] Start: 08-23-1989 HIV screening HIV Screening [facility] Start: 08-23-1981 Diabetic foot examination [facility] Start: 08-23-[address] [facility] Start: 08-23-1981 Hepatitis B screening Urine Albumin:Creatinine Ratio [facility] Start: 08-23-1981 Preventive dental service Diabetes: Dental Exam [facility] Start: 08-23-1977 Pneumococcal vaccination Pneum ococcal Vaccine (1 of 2 - PCV) [facility] Start: 08-23-1977 Pneumococcal Vaccine : Pediatrics (0 to 5 Years) and At-Risk Patients (6 to 64 Years) (1 - PCV) Pneumococcal Vaccine: Pediatrics (0 to 5 Years) and At-Risk Patients (6 to 64 Years) (1 - PCV) [facility] Start: 08-23-1972 MMR Vaccines (1 of 1 - Standard series) MMR Vaccines (1 of 1 - Standard series) [facility] Start: 1971 Hemoglobin A1c measurement Diabetes: Hemoglobin A1C [facility] Start: 1971 Hepatitis B Vaccines (1 of 3 - 3-dose series) Hepatitis B Vaccines (1 of 3 - 3-dose series) [facility] Start: 1971 HIV screening HIV Screening [facility] Start: 1971 Lipid panel Lipid Panel [facility] Start: 1971 Screening for malign ant neoplasm of colon [facility] Anion gap measurement [facility] Anion gap measurement [facility] Ankle brachial press ure index [facility] Ankle brachial press ure index [facility] Bacteria identified in Blood by Culture Blood Culture [facility] Bacteria identified in Blood by Culture Blood Culture [facility] Bacteria identified in Urine by Culture Urine Culture [facility] Bilirubin measuremen t, urine [facility] BUN/Creatinine ratio [facility] BUN/Creatinine ratio [facility] Calcium [Mass/volume ] in 24 hour Urine [facility] Calcium [Mass/volume ] in Serum or Plasma [facility] Calcium [Mass/volume ] in Serum or Plasma [facility] Carbon dioxide, tota l [Moles/volume] in Serum or Plasma [facility] Carbon dioxide, tota l [Moles/volume] in Serum or Plasma [facility] Chloride [Moles/volu me] in Serum or Plasma [facility] Chloride [Moles/volu me] in Serum or Plasma [facility] Creatinine [Moles/vo lume] in Serum or Plasma [facility] Creatinine [Moles/vo lume] in Serum or Plasma [facility] Glucose [Mass/volume ] in Serum or Plasma [facility] Glucose [Mass/volume ] in Serum or Plasma [facility] Hematocrit [Volume Fraction] of Blood [facility] Hematocrit [Volume Fraction] of Blood [facility] Hemoglobin [Mass/vol ume] in Blood [facility] Hemoglobin [Mass/vol ume] in Blood [facility] Hemoglobin [Presence ] in Urine [facility] Hemoglobin A1c/Hemoglobin.total in Blood [facility] Lactic acid measurement [facility] Leukocytes [#/volume ] in Blood [facility] Leukocytes [#/volume ] in Blood [facility] Magnesium [Mass/volu me] in Serum or Plasma [facility] Mean corpuscular hemoglobin concentration determination [facility] Mean corpuscular hemoglobin concentration determination [facility] Mean corpuscular hemoglobin determination [facility] Mean corpuscular hemoglobin determination [facility] Measurement of keton es in urine using dipstick [facility] Measurement of renal function [facility] Measurement of renal function [facility] Microscopic urinalysis [facility] Neutrophil count [facility] Neutrophil count [facility] Neutrophil percent differential count [facility] Neutrophil percent differential count [facility] Patient Education [facility] Work Phone: Patient referral [facility] Work Phone: pH of Urine [facility] Platelets [#/volume] in Blood [facility] Platelets [#/volume] in Blood [facility] Potassium [Moles/vol ume] in Serum or Plasma [facility] Potassium [Moles/vol ume] in Serum or Plasma [facility] Radionuclide gastric emptying study [facility] Red blood cell count [facility] Red blood cell count [facility] Red cell distributio n width determination [facility] Red cell distributio n width determination [facility] Sodium [Moles/volume ] in Serum or Plasma [facility] Sodium [Moles/volume ] in Serum or Plasma [facility] Specific gravity of Urine [facility] Urea nitrogen [Mass/volume] in Serum or Plasma [facility] Urea nitrogen [Mass/volume] in Serum or Plasma [facility] Urine blood test [facility] Urine dipstick for glucose [facility] Urine dipstick for leukocyte esterase [facility] Urine dipstick for nitrite [facility] Urine dipstick for protein [facility] Urine examination [facility] Urine microscopy: epithelial cells [facility] Urine Microscopy: wh ite cells [facility] Urobilinogen [Presen ce] in Urine [facility] US Lower extremity artery [facility] Immunizations Immunization Date Immunization Notes Care Provider [facility] 06-14-2023 influenza, injectabl e, quadrivalent, preservative free [facility] Work Phone: [facility] 06-14-2023 influenza virus vaccine, unspecified formulation Gerda Rivero MD Work Phone: [facility] 09-01-2022 influenza, injectabl e, quadrivalent, preservative free [facility] Work Phone: [facility] 09-01-2022 influenza, seasonal, injectable Dr. Nathaly Lainez Work Phone: [facility] 08-05-2021 influenza, injectabl e, quadrivalent, preservative free [facility] Work Phone: [facility] 08-05-2021 influenza, seasonal, injectable [facility] 08-05-2021 influenza virus vaccine, unspecified formulation Jerry Jones PA-C Work Phone: [facility] 12-29-2020 Covid (Moderna) Dr. Nathaly Lowery Work Phone: [facility] 11-30-2020 Covid (Moderna) Dr. Nathaly Lowery Work Phone: [facility] 07-20-2018 influenza, injectabl e, quadrivalent, preservative free [facility] Work Phone: [facility] 07-20-2018 influenza, seasonal, injectable Dr. Nathaly Lainez Work Phone: [facility] Payers Date Payer Category Payer Self-pay [id number] 2022 Medicaid [id number] 2012 Medicaid [id number] 2012 Unknown [id number] 1971 Unknown [id number] 2.840.1.483140.3.579.2.903 1971 Unknown [id number] .[id number] 1971 Unknown [id number] .840.1.189206.3.579.2.627 Unknown [employer] Unknown [id number] 2.16840.1.799203.3.579.2.462 Unknown [id number] 2.16840.1.661370.3.579.2.462 Unknown [id number] 2.16.840.1.415390.3.579.2.462 Unknown [id number] 2.16.840.1.751589.3.579.2.462 Unknown [id number] 2.16.840.1.447700.3.579.2.462 Unknown [id number] 2.16.840.1.007624.3.579.2.462 Unknown [id number] 2.16840.1.476435.3.579.2.462 Unknown [id number] 2.16840.1.136518.3.579.2.462 Unknown [id number] 2.16.840.1.757780.3.579.2.462 Unknown [id number] 2.16.840.1.287022.3.579.2.462 Unknown [id number] 2.16.840.1.752855.3.579.2.462 Unknown [id number] 2.16.840.1.801144.3.579.2.462 Unknown [id number] 2.16.840.1.001947.3.579.2.462 Unknown [id number] 2.16.840.1.847790.3.579.2.462 Unknown [id number] 2.16.840.1.441017.3.579.2.462 Unknown [id number] 2.16.840.1.101720.3.579.2.462 Unknown [id number] 2.16.840.1.776723.3.579.2.462 Unknown [id number] 2.16.840.1.322640.3.579.2.462 Unknown [id number] 2.16.840.1.663636.3.579.2.462 Unknown [id number] 2.16.840.1.972218.3.579.2.462 Unknown [id number] 2.16.840.1.510666.3.579.2.462 Unknown [id number] 2.16.840.1.840156.3.579.2.462 Unknown [id number] 2.16.840.1.044413.3.579.2.462 Unknown [id number] 2.16.840.1.080297.3.579.2.462 Unknown [id number] 2.16.840.1.160339.3.579.2.462 Unknown [id number] 2.16.840.1.281170.3.579.2.462 Unknown [id number] 2.16.840.1.331718.3.579.2.462 Unknown [id number] 2.16.840.1.376023.3.579.2.462 Unknown [id number] 2.16.840.1.230960.3.579.2.462 Unknown [id number] 2.16.840.1.275537.3.579.2.462 Unknown [id number] 2.16.840.1.604391.3.579.2.462 Unknown [id number] 2.16.840.1.699400.3.579.2.462 Unknown [id number] 2.16.840.1.309163.3.579.2.462 Unknown [id number] 2.16.840.1.088043.3.579.2.462 Unknown [id number] 2.16.840.1.705684.3.579.2.462 Unknown [id number] 2.16.840.1.813473.3.579.2.462 Unknown [id number] 2.16.840.1.708486.3.579.2.462 Unknown [id number] 2.16.840.1.399702.3.579.2.462 Unknown [id number] 2.16.840.1.641416.3.579.2.462 Unknown [id number] 2.16.840.1.295556.3.579.2.462 Unknown [id number] 2.16.840.1.472205.3.579.2.462 Unknown [id number] 2.16.840.1.169150.3.579.2.462 Unknown [id number] 2.16.840.1.475276.3.579.2.462 Unknown [id number] 2.16.840.1.633310.3.579.2.462 Unknown [id number] 2.16.840.1.298011.3.579.2.462 Unknown [id number] 2.840.1.582461.3.579.2.462 Unknown [id number] 2.840.1.542908.3.579.2.462 Unknown [id number] 2.840.1.556360.3.579.2.462 Unknown [id number] 2.840.1.646093.3.579.2.462 Unknown [id number] 2.840.1.822732.3.579.2.462 Unknown [id number] 2.840.1.241631.3.579.2.462 Unknown [id number] 2.840.1.536718.3.579.2.462 Unknown [id number] 2.840.1.066431.3.579.2.462 Unknown [id number] 2.840.1.728877.3.579.2.462 Unknown [id number] .840.1.271732.3.579.2.462 Unknown [id number] .840.1.406938.3.579.2.462 Unknown [id number] 2.840.1.625969.3.579.2.462 Unknown [id number] 2.840.1.000201.3.579.2.462 Unknown [id number] 2.840.1.954675.3.579.2.462 Unknown [id number] .840.1.700950.3.579.2.462 Unknown [id number] 2.840.1.459628.3.579.2.462 Unknown [id number] 2.840.1.996007.3.579.2.462 Unknown [id number] 2.840.1.669550.3.579.2.462 Unknown [id number] 2.16840.1.215849.3.579.2.462 Unknown [id number] 2.16.840.1.060690.3.579.2.462 Unknown [id number] 2.16.840.1.865701.3.579.2.462 Unknown [id number] 2.16.840.1.902935.3.579.2.462 Unknown [id number] 2.16840.1.188695.3.579.2.462 Unknown [id number] 2.16840.1.632328.3.579.2.462 Unknown [id number] 2.0.1.062511.3.579.2.462 Social History Date Type Detail Facility [facility] Start: 03-27-2022 End: 10-15-2023 Tobacco smoking consumption unknown [facility] Start: 08-13-[address] [facility] Start: 08-13-2020 Spouse/ Signif icant Other [facility] Start: 08-11-[address] [facility] Start: 1970 Sex Assigned At Female W [facility] Start: 12-06-2018 End: 12-12-2024 Tobacco smoking status NHIS Smokes tobacco daily [facility] History of tobacco use Cigarette Smoker C [facility] Start: 12-06-2018 End: 09-03-2023 Cigarettes smoked current (pack per day) - Reported 0.[address] [facility] Start: 12-06-2018 Tobacco use and exposure Smokeless tobacco non-user [facility] Start: 09-03-2023 End: 10-19-2023 Alcohol intake Current non-drinker of alcohol (finding) [facility] Start: 08-31-2020 End: 09-03-2023 [facility] Utilities [facility] Has the [employer], or [employer] threatened to shut off services in your home in past 12Mo No [facility] Attends [employer] Not on file [facility] Are you now , , , , never or living with a partner? [facility] How often to you hav e a drink containing alcohol? Never [facility] Do you feel stress - tense, restless, nervous, or anxious, or unable to sleep at night because your mind is troubled all the time - these days [OSQ] Very much [facility] (I/We) worried hugo er (my/our) food would run out before (I/we) got money to buy more. Never true [facility] Start: 10-18-2018 Education [address] [facility] Start: 1970 Sex Assigned At Not on file [facility] Start: 05-29-2022 End: 06-08-2022 Exposure to SARS-CoV-2 (event) Not sure [facility] [employer] Start: 05-23-2024 Tobacco smoking status Never s moked tobacco (finding) [facility] Sexual Orientation [facility] ospital [facility] Start: 09-04-2022 End: 09-29-2024 Sex Female (finding) [facility] Start: 08-26-2024 End: 08-28-2024 Tobacco smoking status NHIS Current Heavy tobacco smoker [facility] NEGATED: Highlighted row [facility] Medical Equipment Procedure Code Equipment Code Equipment Origin al Text Equipment Identifier Dates ([id number]) ()[id number] FDA Start: 08-10-2022 [id number] FDA Start: 08-10-2022 ([id number]) ()[id number] FDA Start: 08-10-2022 Nail Tfn-Advance d 125d Short Green Titanium 170mm Intramedullary Cannulated - [id number] Start: 09-03-2023 Screw Tfn-Advanc ed 85mm Bone Sterile - [id number] Start: 09-03-2023 Screw 5mm 4.3mm T25 Full Thread Titanium 34mm Bone Lock Self Tap Blunt Tip - [id number] Start: 09-03-2023 Comment on above: Description: Was on worksheet and verified on intra-op x-ray. [id number], [id number], [id number], [id number], [id number], [id number] Start: 10-08-2018 Comment on above: Check sugars [...] Facility 09-16-2024 Functional status Ambulates;Bathroom Priv ilege [facility] Work Phone: 09-02-2024 Functional status Ambulates [facility] Work Phone: 07-03-2024 Functional status Ambulates [facility] Work Phone: 05-24-2024 Functional Status Activity Status ADL Leslie ke [facility] 05-23-2024 Functional Status Standard Safet y ID band on, Allergy Band on, Call device within reach, Bed in low position, Wheels locked, personal items within reach, Safety level maintained [facility] 04-29-2024 Functional status Ambulates [facility] Work Phone: 06-16-2023 Functional status Ambulates;Bedside Commo de [facility] Work Phone: 05-07-2023 Functional status Bedside Commode [facility] Work Phone: 02-03-2023 Functional status Activity Ability Indepe ndent [facility] Work Phone: 01-03-2023 Functional status Patient Activi ty Ambulates;Up ad maria m [facility] Work Phone: 01-03-2023 Functional status Standby Assist [facility] Work Phone: 01-02-2023 Functional status Tolerates Activity Well [facility] Work Phone: 09-02-2022 Functional status Ambulates;Bedside Commo de [facility] Work Phone: Mental Status Date Assessment Result Facility 09-29-2024 Cognitive function Awake;Alert;A ppropriate;Follow s Commands [facility] Work Phone: 09-16-2024 Cognitive function Voice/Name [facility] Work Phone: 09-02-2024 Cognitive function Voice/Name [facility] Work Phone: 07-11-2024 Cognitive function Voice/Name [facility] Work Phone: 07-10-2024 Cognitive function Awake;Alert;A ppropriate;Follow s Commands [facility] Work Phone: 07-07-2024 Cognitive function Awake;Alert;A ppropriate;Follow s Commands [facility] Work Phone: 07-05-2024 Cognitive function Voice/Name [facility] Work Phone: 07-04-2024 Cognitive function Voice/Name [facility] Work Phone: 07-03-2024 Cognitive function Voice/Name [facility] Work Phone: 05-23-2024 Mental Status Orientation Oriented x 4 [facility] 04-29-2024 Cognitive function Voice/Name [facility] Work Phone: 06-16-2023 Cognitive function Voice/Name [facility] Work Phone: 06-12-2023 Cognitive function Level Of Cons ciousness Awake;Alert;Appropriate [facility] Work Phone: 05-07-2023 Cognitive function Voice/Name [facility] Work Phone: 09-02-2023 Cognitive function Voice/Name [facility] Work Phone: 02-02-2023 Cognitive function Level Of Cons ciousness Awake;Alert;Appropriate [facility] Work Phone: 01-03-2023 Cognitive function Appropriate;Cooperativ e [facility] Work Phone: 01-01-2023 Cognitive function Level Of Cons ciousness Awake;Alert;Appropriate;Follow s Commands [facility] Work Phone: 09-02-2022 Cognitive function Voice/Name [facility] Work Phone: 04-17-2022 Cognitive function Level Of Cons ciousness Awake;Alert;Appropriate [facility] Work Phone: 03-27-2022 Cognitive function Level Of Cons ciousness Awake;Alert;Appropriate [facility] Work Phone: Clinical Notes 06-08-2022 to 12-12-2024 Note Date & Type Note Facility 12-12-2024 Radiology Diagnostic study note [facility] 12-12-2024 Radiology Diagnostic study note [facility] 09-21-2024 Hospital Discharg e instructions Additional Instructions Follow-up with GI. Stay well-hydrated. Return for any other concerns. Can also follow-up with your PCP in the next 5 to 7 days. [facility] Work Phone: 09-16-2024 Consult note Note Date/Time September 16, 2024 2:16pm [facility] Medical Records Department [address] [place] [address] Counseling Note - Pharmacy 09/16/24 1415 MR#: [id number] Acct: [id number] Name: TRENTON JACKSON Rep #:[id number] : 1970 54 From: Josse Garcia PCP: RUTH Lawrence, LEATHER ETCHER-C Statu s:ADM IN Y Location: [place] [address] Pharmacy [facility] Service has performed discharge medication [...] patient was counselled on new medications by clinical pharmacy manager Balta. Medications at Discharge Home Medications aspirin [...] Signature (if applicable): Date CC: ~ Signed [facility] Work Phone: 1(311) 553-360604-15-2025 Discharge summary Author Latricia Aaron [facility] Note Date/Time September 16, 2024 12: 41pm [facility] Medical Records Department [address] [place] [address] Discharge Summary 09/16/24 1201 MR#: [id number] Acct: [id number] Name: TRETNON JACKSON Rep #:[id number] : 1970 54 From: Latricia Aaron MD PCP: RUTH Lawrence, GLENN Statu s:ADM IN Location: [place] [address] Providers Date of Admission: 09/09/24 Date of Discharge: 09/16/24 Primary Care Physician: RUTH Lawrence, LEATHER ETCHERRamilaC Consultations 09/11/24 12:37 Consult: Infectious Disease Routine [...] % (Auto) Cancelled, Lymph % (Auto) Cancelled, Brule % (Auto) Cancelled, Eos % (Auto) Cancelled, [...] Drop Cells Cancelled, Ovalocytes Cancelled, Stomatocytes Cancelled, [place]ris[place] Bodies Cancelled, Lore Cells Cancelled, Bite Cells [...] (Auto) 79.4 H, Lymph % (Auto) 13.0L, Brule % (Auto) 6.2, Eos % (Auto) 0.5, [...] Latricia Aaron Primary Care Provider: Zohreh Mckeon [facility] Consulting Providers: Rosaura Crane; Nichelle Mcneil; Brenda Posadas; Amish Tariq Discharge Orders/Prescriptions Prescriptions: New ertapenem 1 gram recon soln 1 g IV Q24H 7 Days Qty: 7 0RF Rx Instructions: Dx: emphysematous cystitis. Weekly bmp, LFT, and cbc while on iv abx. Fax to [phone]. acetaminophen 325 mg Tablet 650 mg PO [...] 0RF Referrals / Follow Up: Zohreh Mckeon, LEATHER ETCHER-C [Primary Care Provider] - Within 1 Week Disposition Disposition (needs filled in before D/C Order can be placed): Home, Self Care Charges/Coding Visit Charges Inpatient E&M: 68746 Disch Hosp >30min 09/16/24 1241 <Electronically signed by Latricia Aaron MD> Cosigner Signature (if applicable): CC: RUTH LEATHER ETCHER-C Zohreh Mckeon; Dr. Latricia Aaron MD~ Signed [facility] Work Phone: 1(315) 900-494404-15-2025 Progress note Author Latricia Aaron [facility] Note Date/Time September 16, 2024 12: 01pm [facility] Medical Records Department [address] [place] [address] Progress Note - Hospitalist 09/16/24812 MR#: [id number] Acct: [id number] Name: TRENTON JACKSON Rep #:[id number] : 1970 54 From: Latricia Aaron MD PCP: RUTH Lawrence, LEATHER ETCHER-C Statu s:ADM IN Location: [place] [address] Reason for Visit Reason for Visit: Diagnoses [...] Nicoletteigner Signature (if applicable): CC: ~ Signed [facility] Work Phone: 1(440) 596-386804-15-2025 Progress note Author Nichelle Mcneil [facility] Note Date/Time September 16, 2024 10: 18am [facility] Medical Records Department [address] [place] [address] Progress Note - Infect Disease 09/16/24 1017 MR#: [id number] Acct: [id number] Name: TRENTON JACKSON Rep #:[id number] : 1970 54 From: Nichelle osborne MD PCP: RUTH Lawrence, GLENN Statu s:ADM IN Location: [place] [address] Physical Exam Narrative Not feeling well, ongoing [...] Cosigner Signature (if applicable): CC: ~ Signed [facility] Work Phone: 1(634) 724-465704-15-2025 [facility]04-14-2025 Progress [facility] Note Date/Time September 15, 2024 2:2 7pm [facility] System Medical Records Department [address] [place] [address] Progress Note - Infect Disease 09/15/24 1426 MR#: [id number] Acct: [id number] Name: TRENTON JACKSON Rep #:[id number] : 1970 54 From: Nichelle osborne MD PCP: RUTH Lawrence, GLENN Statu s:ADM IN Location: [place] [address] Physical Exam Narrative Ongoing bladder pain, concerned [...] Cosigner Signature (if applicable): CC: ~ Signed [facility] Work Phone: 1(626) 962-289104-14-2025 Progress note Author Latricia Aaron [facility] Note Date/Time September 15, 2024 11: 29am [facility] Medical Records Department [address] [facility] [place] [address] Progress Note - Hospitalist 09/15/24 0722 MR#: [id number] Acct: [id number] Name: TRENTON JACKSON Rep #:[id number] : 1970 54 From: Latricia Aaron MD PCP: RUTH Lawrence, LEATHER ETCHER-C Statu s:ADM IN Location: [place] [address] Reason for Visit Reason for Visit: Diagnoses [...] (Auto) 74.8 H, Lymph % (Auto) 14.8 L,Brule % (Auto) 8.1, Eos % (Auto) 1.2, [...] documentation, 38minutes Charges/Coding Visit Charges Inpatient E&M: 45898 Subs Hosp L2 09/15/24 1129 <Electronically signed by Latricia Aaron MD> Cosigner Signature (if applicable): CC: ~ Signed [facility] Work Phone: 1(576) 691-909504-14-2025 Consult note Author Amish Tariq [facility] Note Date/Time September 15, 2024 11: 13am [facility] Medical Records Department [address] [place] [address] Consultation - Urology 09/15/24 1112 MR#: [id number] Acct: [id number] Name: TRENTON JACKSON Rep #:[id number] : 1970 54 From: Amish Tariq MD PCP: RUTH Lawrence, LEATHER ETCHER-C Statu s:ADM IN Location: [place] [address] HPI Consult Data Date of Consult: 09/15/24 [...] intervention necessary from urology. Call w questions. [facility] Medical History L5 vertebral fracture ESBL (extended [...] (congestive heart failure) CAD (coronary artery disease), [place] coronary artery Home Medications ?Medication ?Instructions ?Recorded [...] IN 1 - 2 pump subdermal Q6H CO N FOR 02/14/24 09/06/24 History saltsable FEET [...] (Auto) 74.8 H, Lymph % (Auto) 14.8 L,Brule % (Auto) 8.1, Eos % (Auto) 1.2, [...] MD> Cosigner Signature (if applicable): CC: RUTH LEATHER ETCHER-C Zohreh Mckeon~ Signed [facility] Work Phone: 1(218) 813-954904-13-2025 Progress note Author Brenda Posadas [facility] Note Date/Time September 14, 2024 4:3 5pm [facility] Medical Records Department [address] [place] [address] Progress Note - Hospitalist 09/14/24 0910 MR#: [id number] Acct: [id number] Name: TRENTON JACKSON Rep #:[id number] : 1970 54 From: Brenda Posadas MD PCP: RUTH Lawrence, LEATHER ETCHER-C Statu s:ADM IN Location: [place] [id number] Reason for Visit Reason for Visit: [...] (Auto) 72.3 H, Lymph % (Auto) 19.3, Brule % (Auto) 6.0, Eos % (Auto) 1.3, [...] documentation, 38Minutes Charges/Coding Visit Charges Inpatient E&M: 17416 Subs Hosp L2 09/14/24 2581 <Electronically signed by Brenda Posadas MD> Cosigner Signature (if applicable): CC: ~ Signed [facility] Work Phone: 1(910) 509-750804-12-2025 Progress note Author Brenda Posadas [facility] Note Date/Time September 13, 2024 5:3 4pm [facility] Medical Records Department [address] [place] [address] Progress Note - Hospitalist 09/13/24937 MR#: [id number] Acct: [id number] Name: TRENTON JACKSON Rep #:[id number] : 1970 54 From: Brenda Posadas MD PCP: Zohreh Mckeon, FERNANDOC, LEATHER ETCHER-C Statu s:ADM IN Location: [place] [address] Reason for Visit Reason for Visit: Diagnoses [...] Clarity Clear, Urine pH 6.0, Ur Specific [place] 1.010, Urine Protein 15 H, Urine Glucose [...] 75.6 H, Lymph % (Auto) 14.4 L, Brule % (Auto) 6.9, Eos % (Auto) 1.6, [...] History of coronary artery disease -Aspirin, statin, beta-linad #Tobacco use -Advise cessation -Nicotine replacement available [...] documentation, 40Minutes Charges/Coding Visit Charges Inpatient E&M: 87335 Subs Hosp L2 09/13/24 1734 <Electronically signed by Brenda Posadas MD> Cosigner Signature (if applicable): CC: ~ Signed [facility] Work Phone: [phone]) 599-396404-11-2025 Progress note Author Brenda Posadas [facility] Note Date/Time September 12, 2024 4:2 3pm [facility] Medical Records Department [address] [place] [address] Progress Note - Hospitalist 09/12/24 1615 MR#: [id number] Acct: [id number] Name: TRENTON JACKSON Rep #:[id number] : 1970 54 From: Brenda Posadas MD PCP: RUTH Lawrence, LEATHER ETCHER-C Statu s:ADM IN Location: [place] [address] Reason for Visit Reason for Visit: Diagnoses [...] Neut % (Auto) 67.6, Lymph % (Auto) 23.2,Brule % (Auto) 5.8, Eos % (Auto) 1.8, [...] documentation, 38Minutes Charges/Coding Visit Charges Inpatient E&M: 20486 Subs Hosp L2 09/12/24 1623 <Electronically signed by Brenda Posadas MD> Cosigner Signature (if applicable): CC: ~ Signed [facility] Work Phone: [phone] 359-440204-11-2025 Consult note Author Nichelle Mcneil [facility] Note Date/Time September 12, 2024 2:5 8pm [facility] Medical Records Department [address] [place] [address] Consultation - Infectious Dx 09/12/24 1453 MR#: [id number] Acct: [id number] Name: TRENTON JACKSON Rep #:[id number] : 1970 54 From: Nichelle osborne MD PCP: RUTH Lawrence, LEATHER ETCHER-C Statu s:ADM IN Location: [place] [address] Assessment & Plan Assessment/Plan (1) Emphysematous cystitis: [...] performed and neg except as noted above. [facility] Medical History L5 vertebral fracture ESBL (extended [...] (congestive heart failure) CAD (coronary artery disease), [place] coronary artery Home Medications ?Medication ?Instructions ?Recorded [...] IN 1 - 2 pump subdermal Q6H CO N FOR 02/14/24 09/06/24 History saltsable FEET [...] Std Deviation 45.8 H, RDW Coeff of Sepncer 14.2, Plt Count , MPV 10.2, Immature Gran % (Auto) 0.800, Neut % (Auto) 67.6, Lymph % (Auto) 23.2,Brule % (Auto) 5.8, Eos % (Auto) 1.8, [...] MD> Cosigner Signature (if applicable): CC: RUTH LEATHER ETCHERBrian Mckeon~ Signed [facility] Work Phone: [phone]) 741-857404-10-2025 Progress note Author Brenda Posadas [facility] Note Date/Time September 11, 2024 4:1 0pm [facility] Medical Records Department [address] [place] [address] Progress Note - Hospitalist 09/11/24 1606 MR#: [id number] Acct: [id number] Name: TRENTON JACKSON Rep #:[id number] : 1970 54 From: Brenda Posadas MD PCP: Zohreh Mckeon, VSC, LEATHER ETCHER-C Statu s:ADM IN Location: [place] [address] Reason for Visit Reason for Visit: Diagnoses [...] % (Auto) 68.0, Lymph % (Auto) 22.6, Brule % (Auto) 6.3, Eos % (Auto) 1.9, [...] the colon consistent with constipation. Reading Location: [facility] Physical Exam Narrative General: Alert, oriented, no [...] documentation, 37Minutes Charges/Coding Visit Charges Inpatient E&M: 01494 Subs Hosp L2 09/11/24 1610 <Electronically signed by Brenda Posadas MD> Cosigner Signature (if applicable): CC: ~ Signed [facility] Work Phone: 1(617) 167-948104-10-2025 Radiology Diagnostic study [facility]04-09-2025 Progress note Author Brenda Posadas [facility] Note Date/Time September 10, 2024 5:34 pm [facility] Medical Records Department [address] [place] [address] Progress Note - Hospitalist 09/10/24 1731 MR#: [id number] Acct: [id number] Name: TRENTON JACKSON Rep #:[id number] : 1970 54 From: Brenda Posadas MD PCP: RUTH Lawrence, LEATHER ETCHER-C Statu s:ADM IN Location: [place] [address] Reason for Visit Reason for Visit: Diagnoses [...] (Auto) 72.8 H, Lymph % (Auto) 18.5L, Brule % (Auto) 6.0, Eos % (Auto) 1.6, [...] Posadas MD Charges/Coding Visit Charges Inpatient E&M: 60053 Subs Hosp L1 09/10/24 8922 <Electronically signed by Brenda Posadas MD> Cosigner Signature (if applicable): CC: ~ Signed [facility] Work Phone: 1(846) 385-890304-08-2025 Progress note Author Brenda Posadas [facility] Note Date/Time September 09, 2024 6:46 pm [facility] Medical Records Department [address] [place] [address] Progress Note - Hospitalist 09/09/24 1242 MR#: [id number] Acct: [id number] Name: TRENTON JACKSON Rep #:[id number] : 1970 54 From: Brenda Posadas MD PCP: Zohreh Mckeon, VSC, LEATHER ETCHER-C Statu s:ADM REHAN Location: [place] [address] Reason for Visit Reason for Visit: Diagnoses [...] Clarity Clear, Urine pH 6.0, Ur Specific [place] 1.010, Urine Protein 30 H, Urine Glucose [...] % (Auto) 67.1, Lymph % (Auto) 23.9, Brule % (Auto) 5.5, Eos % (Auto) 2.3, [...] documentation, 40Minutes Charges/Coding Visit Charges Inpatient E&M: 09229 Subs Hosp L2 09/09/24 1846 <Electronically signed by Brenda Posadas MD> Cosigner Signature (if applicable): CC: ~ Signed [facility] Work Phone: 1(610) 774-187004-07-2025 Progress note Author Brenda Posadas [facility] Note Date/Time September 08, 2024 7:37 pm [facility] Medical Records Department [address] [place] [address] Progress Note - Hospitalist 09/08/24999 MR#: [id number] Acct: [id number] Name: TRENTON JACKSON Rep #:[id number] : 1970 54 From: Brenda Posadas MD PCP: RUTH Lawrence, LEATHER ETCHER-C Statu s:ADM REHAN Location: [place] [address] Reason for Visit Reason for Visit: Diagnoses [...] % (Auto) Cancelled, Lymph % (Auto) Cancelled, Brule % (Auto) Cancelled, Eos % (Auto) Cancelled, [...] Drop Cells Cancelled, Ovalocytes Cancelled, Stomatocytes Cancelled, Burris-[place]ris [place] Bodies Cancelled, [place] Cells Cancelled, Bite Cells Cancelled, Crenated Cell [...] 77.8 H, Lymph % (Auto) 14.5 L, Brule % (Auto) 5.0, Eos % (Auto) 1.7, [...] % (Auto) 64.6, Lymph % (Auto) 25.7, Brule% (Auto) 6.0, Eos % (Auto) 2.4, Baso [...] recommend MRI for further characterization. [facility] Exam Narrative General: Resting comfortably [...] documentation, 52Minutes Charges/Coding Visit Charges Inpatient E&M: 35284 Subs Hosp L3 09/08/24 1640 <Electronically signed [...] Cosigner Signature (if applicable): cc: ~* Signed [facility] Work Phone: 1(618) 607-769704-07-2025 History and physical note Author Rosaura Crane [facility] Note Date/Time September 07, 2024 10:0 0pm [facility] Medical Records Department [address] [place] [address] H&P Exam - Hospitalist 09/07/242133 MR#: [id number] Acct: [id number] Name: TRENTON JACKSON Rep #:[id number] : 1970 54 From: Rosaura Crane MD PCP: Zohreh Mckeon Gideon, LEATHER ETCHER-C Statu s:ADM REHAN Location: [place] [address] HPI - General General Date of Admission: [...] which resolved who re- presents to the [facility] ED on 09/07/24 with history of [...] not obtained upon requested evaluation of patient. [facility] Medical History L5 vertebral fracture ESBL (extended [...] (congestive heart failure) CAD (coronary artery disease), [place] coronary artery Home Medications ?Medication ?Instructions ?Recorded [...] IN 1 - 2 pump subdermal Q6H CO N FOR 02/14/24 Unknown History saltsable FEET [...] % (Auto) Cancelled, Lymph % (Auto) Cancelled, Brule % (Auto) Cancelled, Eos % (Auto) Cancelled, [...] Drop Cells Cancelled, Ovalocytes Cancelled, Stomatocytes Cancelled, [place]ris[place] Bodies Cancelled, Lore Cells Cancelled, Bite Cells [...] 77.8 H, Lymph % (Auto) 14.5 L, Brule % (Auto) 5.0, Eos % (Auto) 1.7, [...] which resolved who re- presents to the [facility] ED on 09/07/24 with history of [...] 16 minutes. Charges/Coding Visit Charges Inpatient E&M: 14142 Init Hosp L3 Procedures Hospitalists Procedures: 64148 Advncd Care Plan 30 Min 09/07/24 2200 <Electronically signed by Rosaura Crane MD> Cosigner Signature (if applicable): CC: RUTH LEATHER ETCHER-C Zohreh Mckeon; Dr. Rosaura Crane MD~ Signed [facility] Work Phone: 1(505) 588-833304-06-2025 Dis[facility] summary [facility] Date/Time September 07, 2024 9:32 pm [facility] Medical Records Department [address] [place] [address] Emergency Department Summary 09/07/24 MR#: [id number] Acct: [id number] Name: TRENTON JACKSON Rep #:[id number] : 1970 54 From: Davis Gibson PCP: RUTH Lawrence, LEATHER ETCHER-C Statu s:REG ER Location: ED HPI History [...] (congestive heart failure) CAD (coronary artery disease), [place] coronary artery Home Medications ?Medication ?Instructions ?Recorded [...] IN 1 - 2 pump subdermal Q6H CO N FOR 02/14/24 Unknown History saltsable FEET [...] History obtained from others: none Consults: none [facility] Narrative: The patient was initially tachycardic, tachypneic [...] PCU oBS This note was generated with [employer] software. It may contain incorrectwords, spelling, and [...] H Lymph % (Auto) Cancelled 14.5 L Brule % (Auto) Cancelled 5.0 Eos % (Auto) [...] Drop Cells Cancelled Ovalocytes Cancelled Stomatocytes Cancelled [place] Bodies Cancelled Lore Cells Cancelled Bite Cells [...] Care Provider: Zohreh Mckeon Referrals: Zohreh Mckeon, LEATHER ETCHER-C [Primary Care Provider] - Print Language: Egyptian What to do if you have Problems For any increased pain, shortness of breath, bleeding, nausea or vomiting, chestpain, or any unexpected problems, contact your Primary Care Provider. Call [facility] ([phone]) or report to the closest Emergency Room. Call 911 if necessary. 09/07/242131 <Electronically signed by Davis Ibarra DO> Cosigner Signature (if applicable): CC: RUTH LEATHER ETCHER-C Zohreh Mckeon ~ Signed [facility] Work Phone: 1(838) 188-308104-06-2025 Radiology Diagnostic study [facility]04-06-2025 Discharge summary Author Davis Ibarra [facility] Note Date/Time September 07, 2024 9:32 pm [facility] Medical Records Department [address] [place] [address] Emergency Department Summary 09/07/24 MR#: [id number] Acct: [id number] Name: TRENTON JACKSON Rep #:[id number] : 1970 54 From: Davis Gibson PCP: RUTH Lawrence, LEATHER ETCHER-C Statu s:REG ER Location: ED HPI History of Present Illness Chief Complaint: Nausea/Vomiting [facility] Medical History L5 vertebral fracture ESBL (extended [...] (congestive heart failure) CAD (coronary artery disease), [place] coronary artery Home Medications ?Medication ?Instructions ?Recorded [...] IN 1 - 2 pump subdermal Q6H CO N FOR 02/14/24 Unknown History saltsable FEET [...] History obtained from others: none Consults: none [facility] Narrative: The patient was initially tachycardic, tachypneic [...] PCU oBS This note was generated with [employer] dictation software. It may contain incorrectwords, spelling, [...] H Lymph % (Auto) Cancelled 14.5 L Brule % (Auto) Cancelled 5.0 Eos % (Auto) [...] Drop Cells Cancelled Ovalocytes Cancelled Stomatocytes Cancelled [place] Bodies Cancelled Lore Cells Cancelled Bite Cells [...] recommend MRI for further characterization. [facility] T[facility] Chief Complaint: Nausea/Vomiting [...] Care Provider: Zohreh Mckeon Referrals: Zohreh Mckeon, LEATHER ETCHER-C [Primary Care Provider] - Print Language: Egyptian What to do if you have Problems For any increased pain, shortness of breath, bleeding, nausea or vomiting, chestpain, or any unexpected problems, contact your Primary Care Provider. Call [facility] ([phone]) or report to the closest Emergency Room. Call 911 if necessary. 09/07/242131 <Electronically signed by Davis Ibarra DO> Cosigner Signature (if applicable): CC: RUTH LEATHER ETCHER-Gideon Mckeon ~ Signed [facility] Work Phone: 1([phone]) 778-393904-04-2025 Discharge summary Author Zack Card [facility] Note Date/Time September 05, 2024 3:35 pm [facility] Medical Records Department [address] [place] [address] Emergency Department Summary 09/05/24 MR#: [id number] Acct: [id number] Name: TRENTON JACKSON Rep #:[id number] : 1970 54 From: Zack Han PCP: [...] to latex. History of cholecystectomy and appendectomy. [facility] Medical History L5 vertebral fracture ESBL (extended [...] (congestive heart failure) CAD (coronary artery disease), [place] coronary artery Home Medications ?Medication ?Instructions ?Recorded [...] IN 1 - 2 pump subdermal Q6H CO N FOR 02/14/24 Unknown History saltsable FEET [...] I discussed her MRI review noting her L3-B9wcarrvl disc. Discussed likely causing her radicular symptoms. [...] clinician: N/A This note was generated with SalonBookr dictation software. It may contain incorrectwords, spelling, [...] 79.7 H Lymph % (Auto) 14.1 L Brule % (Auto) 5.1 Eos % (Auto) 0.2 [...] 10 0RF Primary Care Provider: Zohreh Mckeon [facility] Referrals: Vel Swartz MD [Med Staff - Active Staff] - 1-2 Weeks Prakristen,Brandon, MD [Med Staff - Active Staff] - 3-5 Days Zohreh Mckeon, LEATHER ETCHER-C [Primary Care Provider] - Activity Restrictions/Additional Instructions: [...] your glucose with your insulin. Print Language: Egyptian Disposition Disposition: Home, Self Care What to do if you have Problems For any increased pain, shortness of breath, bleeding, nausea or vomiting, chestpain, or any unexpected problems, contact your Primary Care Provider. Call [facility] ([phone]) or report to the closest Emergency Room. Call 911 if necessary. 09/05/24 1539 <Electronically signed by Zack Han> Cosigner Signature (if applicable): CC: RUTH LEATHER ETCHER-Gideon Mckeon ~ Signed [facility] Work Phone: 1(327) 181-513904-01-2025 Consult note Author Haven Viramontes [facility] Note Date/Time September 02, 2024 2:33 pm [facility] Medical Records Department [address] [place] [address] Counseling Note - Pharmacy 09/02/24 1432 MR#: [id number] Acct: [id number] Name: TRENTON JACKSON Rep #:[id number] : 1970 54 From: Haven Viramontes PCP: RUTH Lawrence, LEATHER ETCHER-Gideon Statu s:ADM IN Y [facility] has performed discharge medication reconciliation and counseling for this patient. 1. ACETAMINOPHEN 1000MG PO Q8 2. OXYCODONE 5MG Q4H PRN PAIN - Do not take with [place] 3. STOP GABAPENTIN The patient's discharge medication [...] Signature (if applicable): Date CC: ~ Signed [facility] Work Phone: 1(523) 968-481004-01-2025 Discharge summary Author Latricia Aaron [facility] Note Date/Time September 02, 2024 12:4 7pm [facility] Medical Records Department [address] [place] [address] Discharge Summary 09/02/24 1232 MR#: [id number] Acct: [id number] Name: TRENTON JACKSON Rep #:[id number] : 1970 54 From: Latricia Aaron MD PCP: Zohreh Mckeon, RUTH, LEATHER ETCHER-C Statu s:ADM IN [facility] MK875-9 Providers Date of Admission: 08/26/24 Date of Discharge: 09/02/24 Primary Care Physician: Zohreh Mckeon, [facility], LEATHER ETCHER-C Consultations 08/26/24 20:30 Consult: Vascular Surgery Routine [...] Requested for PT OT eval and social services designee to assist with discharge planning ? 09/02/2024 patient was denied transfer to [facility] by her insurance company since she [...] 80.7 H, Lymph % (Auto) 14.4 L, Brule % (Auto) 4.0, Eos % (Auto) 0.2, [...] Latricia Aaron Primary Care Provider: Zohreh Mckeon [facility] Consulting Providers: Brenda Posadas; Riccardo [...] 3XD Referrals / Follow Up: Zohreh Mckeon, LEATHER ETCHER-C [Primary Care Provider] - Within 1 Week Disposition Disposition (needs filled in before D/C Order can be placed): Home Health Service Charges/Coding Visit Charges Inpatient E&M: 52243 Disch Hosp >30min 09/02/24 1247 <Electronically signed by Latricia Aaron MD> Cosigner Signature (if applicable): CC: RUTH LEATHER ETCHER-C Zohreh Mckeon; Dr. Latricia Aaron MD~ Signed [facility] Work Phone: 1(183) 523-534604-01-2025 [facility]04-01-2025 Progress note Author Latricia Aaron [facility] Note Date/Time September 02, 2024 9:14 am [facility] Medical Records Department [address] [place] [address] Progress Note - Hospitalist 09/02/24 0751 MR#: [id number] Acct: [id number] Name: TRENTON JACKSON Rep #:[id number] : 1970 54 From: Latricia Aaron MD PCP: Zohreh Mckeon [facility], LEATHER ETCHER-C Statu s:ADM IN [facility] Reason for Visit Reason for Visit: Diagnoses [...] 80.7 H, Lymph % (Auto) 14.4 L, Brule % (Auto) 4.0, Eos % (Auto) 0.2, [...] Requested for PT OT eval and social services designee to assist with discharge planning 3. Peripheral [...] documentation, 36minutes Charges/Coding Visit Charges Inpatient E&M: 18596 Subs Hosp L2 09/02/24 0914 <Electronically signed by Latricia Aaron MD> Cosigner Signature (if applicable): CC: ~ Signed [facility] Work Phone: 1(588) 211-989703-31-2025 Progress note Author Latricia Aaron [facility] Note Date/Time September 01, 2024 12: 47pm [facility] Medical Records Department [address] [place] [address] Progress Note - Hospitalist 09/01/24 0819 MR#: [id number] Acct: [id number] Name: TRENTON JACKSON Rep #:[id number] : 1970 54 From: Latricia Aaron MD PCP: RUTH Lawrence, LEATHER ETCHER-C Statu s:ADM IN Location: [place] 937794-1 Reason for Visit Reason for Visit: Diagnoses [...] Requested for PT OT eval and social services designee to assist with discharge planning 3. Peripheral [...] 38 minutes Charges/Coding Visit Charges Inpatient E&M: 89748 Subs Hosp L2 09/01/24 1687 <Electronically signed by Latricia Aaron MD> Cosigner Signature (if applicable): CC: ~ Signed [facility] Work Phone: 1(225) 956-110003-30-2025 Progress note Author Nicole Trujillo [facility] Note Date/Time August 31, 2024 2:1 2pm [facility] Medical Records Department [address] [place] [address] Progress Note - Hospitalist 08/31/24 0854 MR#: [id number] Acct: [id number] Name: TRENTON JACKSON Rep #:[id number] : 1970 54 From: Nicole Trujillo DO PCP: RUTH Lawrence, LEATHER ETCHER-C Statu s:ADM IN Location: [place] 937794-1 Reason for Visit Reason for Visit: Left [...] for tomorrow Charges/Coding Visit Charges Inpatient E&M: 08820 Subs Hosp L1 08/31/24 1412 <Electronically signed by Nicole Trujillo DO> Cosigner Signature (if applicable): CC: ~ Signed [facility] Work Phone: 1(234) 104-779403-29-2025 Progress note Author Nicole Trujillo [facility] Note Date/Time August 30, 2024 3:3 1pm [facility] Medical Records Department [address] [place] [address] Progress Note - Hospitalist 08/30/24 1528 MR#: [id number] Acct: [id number] Name: TRENTON JACKSON Rep #:[id number] : 1970 54 From: Nicole Trujillo DO PCP: RUTH Lawrence, LEATHER ETCHER-C Statu s:ADM IN Location: [place] [address]-1 Reason for Visit Reason for Visit: Left [...] awaiting pre-CERT. Charges/Coding Visit Charges Inpatient E&M: 05704 Subs Hosp L1 08/30/24 1531 <Electronically signed by Nicole Trujillo DO> Cosigner Signature (if applicable): CC: ~ Signed [facility] Work Phone: 1(613) [phone] Progress note Author Nicole Trujillo [facility] Note Date/Time August 29, 2024 5:0 3pm [facility] Medical Records Department [address] [place] [address] Progress Note - Hospitalist 08/29/24 1647 MR#: [id number] Acct: [id number] Name: TRENTON JACKSON Rep #:[id number] : 1970 54 From: Nicole Trujillo DO PCP: RUTH Lawrence, LEATHER ETCHER-C Statu s:ADM IN [facility] Reason for Visit Reason for Visit: Left [...] % (Auto) 64.7, Lymph % (Auto) 24.4, Brule% (Auto) 7.6, Eos % (Auto) 2.4, Baso [...] awaiting pre-CERT. Charges/Coding Visit Charges Inpatient E&M: 46253 Subs Hosp L1 08/29/24 1703 <Electronically signed by Nicole Trujillo DO> Cosigner Signature (if applicable): CC: ~ Signed [facility] Work Phone: [phone]) [phone] Discharge summary Author Nicole Trujillo [facility] Note Date/Time August 29, 2024 9:5 0am [facility] Medical Records Department [address] [place] [address] Transfer to [facility] MR#: [id number] Acct: [id number] Name: TRENTON JACKSON Rep #:[id number] : 1970 54 From: Nicole Trujillo DO PCP: RUTH Lawrence, LEATHER ETCHER-C Statu s:ADM IN Certification of patient admission REQUIRED AT TIME OF ADMISSION. I CERTIFY THAT POST-HOSPITAL ECF SERVICES ARE REQUIRED TO BE GIVEN ON AN IN-PATIENT BASIS BECAUSE OF THE ABOVE NAMED PATIENT'S NEED FOR LONGTERM CARE ON A CONTINUING BASIS FOR THE CONDITION(S) FOR WHICH HE/SHE WAS RECEIVING IN-PATIENT HOSPITAL SERVICES PRIOR TO HIS/HER TRANSFER TO THE ECF. 08/29/24 0912<Electronically signed by Nicole Trujillo DO> Diet Diet [...] Nicole Trujillo Primary Care Provider: Zohreh Mckeon [facility] Consulting Providers: Brenda Posadas; Riccardo [...] 0RF Referrals / Follow Up: Zohreh Mckeon, LEATHER ETCHER-C [Primary Care Provider] - 08/29/24 7949 <Electronically signed by Nicole Trujillo DO> Cosigner Signature (if applicable): CC: RUTH LEATHER ETCHERBrian Mckeon; Dr. Riccardo Ng MD; Dr. Brenda Posadas MD ~ [facility] Work Phone: [phone]) 500-223603-27-2025 Progress note Author Nicole Ronnie [facility] Note Date/Time August 28, 2024 6:0 1pm [facility] Medical Records Department [address] [place] [address] Progress Note - Hospitalist 08/28/241754 MR#: [id number] Acct: [id number] Name: TRENTON JACKSON Rep #:[id number] : 1970 54 From: Nicole Trujillo DO PCP: RUTH Lawrence, LEATHER ETCHER-C Statu s:ADM IN Location: MS3 BX691-5 Reason for Visit Reason for Visit: Left [...] % (Auto) 66.7, Lymph % (Auto) 22.7, Brule% (Auto) 6.7, Eos % (Auto) 3.0, Baso [...] age, lying in bed dozing off watching [employer], appears comfortable, nontoxic HEENT head/scalp atraumatic [...] -Full code Charges/Coding Visit Charges Inpatient E&M: 33912 Subs Hosp L2 08/28/24 1801 <Electronically signed by Nicole Trujillo DO> Cosigner Signature (if applicable): CC: ~ Signed [facility] Work Phone: 1(116) 256-790003-26-2025 Progress note Author Nicole Trujillo [facility] Note Date/Time August 27, 2024 2:5 8pm [facility] Medical Records Department [address] [place] [address] Progress Note - Hospitalist 08/27/24 0725 MR#: [id number] Acct: [id number] Name: TRENTON JACKSON Rep #:[id number] : 1970 54 From: Nicole Trujillo DO PCP: Zohreh Mckeon, Gideon, LEATHER ETCHER-C Statu s:ADM IN Location: ICU CVICU20 2-1 Reason for Visit Reason for Visit: Left leg pain Subjective Subjective Patient is a 54-year-old white female with multiple comorbidities and complianceissues who presented to the emergency department at [facility] on 08/26/2024 with a chief complaint of [...] % (Auto) 69.6, Lymph % (Auto) 20.9, Brule % (Auto) 5.7, Eos % (Auto) 2.8, [...] (Auto) 72.4 H, Lymph % (Auto) 20.6, Brule % (Auto) 4.4, Eos % (Auto) 1.6, [...] IMPRESSION: No acute cardiopulmonary process. Reading Location: [facility] Venous Doppler Study 08/26/24 10:40 Interpretation Summary Deep veins of the left lower extremity are patent and compressible segmentally. There is no evidence of left lower extremity deep vein thrombosis. The left great saphenous vein appears patent andcompressible segmentally. Incidental finding, right SFA stent occlusion Ordering Physician: Jeison Abrams [facility] Performed By: Héctor Ayoub RVT Lower Extremity CTA 08/26/24 14:00 IMPRESSION: Technically limited study as described. Severe multilevel disease as described level by level above. Interventional radiology consultation may be appropriate. Reading Location: [place] [address] Physical Exam Const alert, oriented x3 and [...] -Full code Charges/Coding Visit Charges Inpatient E&M: 68649 Subs Hosp L2 08/27/24 0952 <Electronically signed by Nicole Trujillo DO> Cosigner Signature (if applicable): CC: ~ Signed [facility] Work Phone: 1(395) 214-538503-26-2025 Consult note Author Riccardo Ng [facility] Note Date/Time August 27, 2024 7:3 3am [facility] Medical Records Department [address] [place] [address] Consultation - Surgical 08/27/24 0705 MR#: [id number] Acct: [id number] Name: TRENTON JACKSON Rep #:[id number] : 1970 54 From: Riccardo Ng MD PCP: Zohreh Mckeon Gideon, LEATHER ETCHER-C Statu s:ADM IN Location: ICU CVICU20 2-1 [...] change and minimal relief with pain medications. [facility] Medical History ESBL (extended spectrum beta-lactamase) producing [...] (congestive heart failure) CAD (coronary artery disease), [place] coronary artery Home Medications ?Medication ?Instructions ?Recorded [...] IN 1 - 2 pump subdermal Q6H CO N FOR 02/14/24 Unknown History saltsable FEET [...] % (Auto) 69.6, Lymph % (Auto) 20.9, Brule % (Auto) 5.7, Eos % (Auto) 2.8, [...] (Auto) 72.4 H, Lymph % (Auto) 20.6, Brule % (Auto) 4.4, Eos % (Auto) 1.6, [...] IMPRESSION: No acute cardiopulmonary process. Reading Location: [facility] Venous Doppler Study 08/26/24 10:40 Interpretation Summary [...] radiology consultation may be appropriate. Reading Location: [facility] Charges/Coding Visit Charges Inpatient E&M: 54862 Init Hosp L3 08/27/24 2734 <Electronically signed by Riccardo Ng MD> Cosigner Signature (if applicable): CC: RUTH LEATHER ETCHERBrian Mckeon~ Signed [facility] Work Phone: 1(212) 562-132603-26-2025 Discharge summary Author Jeison Abrams [facility] Note Date/Time August 27, 2024 7:0 7am [facility] Medical Records Department [address] [place] [address] Emergency Department Summary 08/26/24 MR#: [id number] Acct: [id number] Name: TRENTON JACKSON Rep #:[id number] : 1970 54 From: Jeison Gibson PCP: RUTH Lawrence, LEATHER ETCHER-C Statu s:ADM IN Location: ICU CVICU20 2-1 [...] failure but states she has heart problems. [facility] <Dr. Jeison Abrams DO - Last Filed: 08/26/24 15:33> [facility] Medical History ESBL (extended spectrum beta-lactamase) producing [...] (congestive heart failure) CAD (coronary artery disease), [place] coronary artery Home Medications ?Medication ?Instructions ?Recorded [...] IN 1 - 2 pump subdermal Q6H CO N FOR 02/14/24 Unknown History saltsable FEET [...] 89 Pulse Ox 97 Oxygen Delivery Method [facility] <Dr. Jeison Abrams, DO - Last Filed: 08/26/24 15:33> [facility] Narrative Medical decision making narrative: Differential diagnosis [...] % (Auto) 69.6 Lymph % (Auto) 20.9 Brule % (Auto) 5.7 Eos % (Auto) 2.8 [...] IMPRESSION: No acute cardiopulmonary process. Reading Location: [facility] Venous Doppler Study 08/26/24 10:40 Interpretation Summary Deep veins of the left lower extremity are patent and compressible segmentally. There is no evidence of left lower extremity deep vein thrombosis. The left great saphenous vein appears patent andcompressible segmentally. Incidental finding, right SFA stent occlusion Ordering Physician: Jeison Abrams Referring Physician: Nathaly Lainez [facility] Performed By: Héctor Ayoub, RVT Lower Extremity CTA 08/26/24 14:00 IMPRESSION: Technically limited study as described. Severe multilevel disease as described level by level above. Interventional radiology consultation may be appropriate. Reading Location: [facility] <Dr. Vaughn Louise-Frantz, DO - Last Filed: 08/27/24 03:29> [facility] Narrative Medical decision making narrative: Differential diagnosis [...] % (Auto) 69.6 Lymph % (Auto) 20.9 Brule % (Auto) 5.7 Eos % (Auto) 2.8 [...] IMPRESSION: No acute cardiopulmonary process. Reading Location: [facility] Venous Doppler Study 08/26/24 10:40 Interpretation Summary [...] radiology consultation may be appropriate. Reading Location: [place] [address] Discharge Plan Disposition Disposition: Acute Care Hospital [facility] Discharge Date/Time: 08/26/24 20:14 What to do if you have Problems For any increased pain, shortness of breath, bleeding, nausea or vomiting, chestpain, or any unexpected problems, contact your Primary Care Provider. Call [employer] ([phone]) or report to the closest Emergency Room. Call 911 if necessary. 08/27/24 0707 <Electronically signed by Jeison Abrams DO> Cosigner Signature (if applicable): 08/27/24 0329 <Electronically signed by Vaughn Daugherty DO> CC: RUTH LEATHER ETCHER-C Zohreh Mckeon ~ Signed [facility] Work Phone: 1(316) 540-626403-25-2025 History and physical note Author Brenda Posadas [facility] Note Date/Time August 26, 2024 8:1 8pm [facility] Medical Records Department [address] [place] [address] H&P Exam - Hospitalist 08/26/242002 MR#: [id number] Acct: [id number] Name: TRENTON JACKSON Rep #:[id number] : 1970 54 From: Brenda Posadas MD PCP: RUTH Lawrence, LEATHER ETCHERBrian Statu s:ADM IN Location: ICU CVICU20 2-1 HPI - General General Date of Admission: 08/26/24 Date of Service: 08/26/24 Chief Complaint: Left lower extremity pain HPI Narrative TRENTON JACKSON, is a 54-year-old female with history of coronary artery disease, combined heart failure, hypertension, diabetes presented to [facility] ED 08/26/2024 due to pain and swelling [...] and is not sure what is what [facility] Medical History ESBL (extended spectrum beta-lactamase) producing [...] (congestive heart failure) CAD (coronary artery disease), [place] coronary artery Home Medications ?Medication ?Instructions ?Recorded [...] IN 1 - 2 pump subdermal Q6H CO N FOR 02/14/24 Unknown History saltsable FEET [...] % (Auto) 69.6, Lymph % (Auto) 20.9, Brule % (Auto) 5.7, Eos % (Auto) 2.8, [...] IMPRESSION: No acute cardiopulmonary process. Reading Location: [facility] Venous Doppler Study 08/26/24 10:40 Interpretation Summary Deep veins of the left lower extremity are patent and compressible segmentally. There is no evidence of left lower extremity deep vein thrombosis. The left great saphenous vein appears patent andcompressible segmentally. Incidental finding, right SFA stent occlusion Ordering Physician: Jeison Abrams Referring Physician: Nathaly Lainez [facility] Performed By: Héctor Ayoub, RVT Lower Extremity CTA 08/26/24 14:00 IMPRESSION: Technically limited study as described. Severe multilevel disease as described level by level above. Interventional radiology consultation may be appropriate. Reading Location: [facility] Assessment & Plan Assessment/Plan (1) Acute [...] #GERD -Continue PPI #DVT ppx: Heparin drip Brenda Posadas MD Time spent in the patient's overall evaluation, decision-making process, review of diagnostic data, adjustment of management, discussion with other providers, nursing and ancillary staff involved in patient's care documentation, 76 Minutes Charges/Coding Visit Charges Inpatient E&M: 78761 Init Hosp L3 08/26/242017 <Electronically signed by Brenda Posadas MD> Cosigner Signature (if applicable): CC: RUTH LEATHER ETCHERBrian Mckeon; Dr. Brenda Posadas MD~ Signed [facility] Work Phone: 1(733) 383-113803-25-2025 Evaluation note* Diagnosis Onset Date Resolution Status [...] vomiting reso lved September 09, 2024 7:01pm [facility] Work Phone: 1(361) 175-425103-25-2025 Radiology Diagnostic study [place] [facility]03-25-2025 Radiology Diagnostic study [facility]01-30-2025 [facility]01-26-2025 Evaluation note* Diagnosis Onset Date Resolution Status [...] diabetes mellitus acute August 26, 2024 8:03pm [facility] Work Phone: 1(161) 974-755901-26-2025 Evaluation note* Diagnosis Onset Date Resolution Status [...] and vomiting acute September 07, 2024 9:35pm [facility] Work Phone: 1(634) 327-215301-26-2025 Evaluation note* Diagnosis Onset Date Resolution Status [...] and vomiting acute September 09, 2024 7:01pm [facility] Work Phone: 1(999) 177-275501-26-2025 Evaluation note* Diagnosis Onset Date Resolution Status [...] and vomiting resolved September 09, 2024 7:01pm [facility] Work Phone: 1(132) 947-527212-21-2024 Hospital Discharge instructions Patient Education 05/23/2024 23:02:36 [...] for heart disease or after a stroke) Rrqk-kit-njglzvy medicines for diarrhea, nausea, and vomiting are generally OK unless you have bleeding, fever, or severe abdominal pain. General care If symptoms are severe, rest at home for the next 24 hours, or until you are feeling better. Washing your hands with soap and water, or using alcohol-based hand voice over artist is the best way to stop the [...] after. Wash your hands or use alcohol-based voice over artist after using cutting boards, countertops, and knives that have been in contact with raw food. Dry your hands with a single use towel. Keep uncooked meats away from cooked and eqqrf-zm-rxv foods. Follow-up care Follow up with your [...] every 6 hours), or very dark urine 6294-1875 [employer]. [address] [place] [address]. All rights reserved. This information is not intended as a substitute for professional medical care. Always follow yourhealthcare professional's instructions. Follow Up Care 05/23/2024 19:13:17 With:BRITTANEY PEARSON MD Address: [address] [place] [address] [id number] When:2-4 days [facility] 12-20-2024 Note Discharge Instructions Thank you for allowing [facility] to assist you with your healthcare needs. The following is importantdischarge information regarding your hospital visit. Diagnosis from Today's Visit Vomiting What to Do Next Instructions from Your Care Team No qualifying data available. Post Acute Orders No qualifying data available. You Need to Schedule the Following Appointments Follow Up with BRITTANEY PEARSON MD When:Within 2-4 days Where:[address] [place] [address] [id number]- Allergies Latex Medications Please ask your primary [...] for heart disease or after a stroke) Acna-hgq-dcaaaca medicines for diarrhea, nausea, and vomiting are generally OK unless you have bleeding, fever, or severe abdominal pain. General care If symptoms are severe, rest at home for the next 24 hours, or until you are feeling better. Washing your hands with soap and water, or using alcohol-based hand voice over artist is the best way to stop the [...] after. Wash your hands or use alcohol-based voice over artist after using cutting boards, countertops, and knives that have been in contact with raw food. Dry your hands with a single use towel. Keep uncooked meats away from cooked and hqfbv-ld-acq foods. Follow-up care Follow up with your [...] every 6 hours), or very dark urine 6550-2505 [employer]. [address] [place] [address]. All rights reserved. This information is not intended as a substitute for professional medical care. Always follow yourhealthcare professional's instructions. Additional Information VACCINATE! IT SAVES LIVES! Members of the community who have not yet received the COVID-19 vaccine and would like to receive it can visit one of [facility] vaccine clinics. There are many vaccine clinic locations within the [facility]. For locations and available times, please visit www.gettheshot.coronavirus.[place].gov/. It is important to note that some COVID mobile vaccine clinics are held outdoors and may be canceled in rainy or stormy conditions. To learn more about pediatric vaccinations (ages 5-11), we invite you to visit the [facility] webpage. https://www.[facility].org/pages/2234-Offoc-Klyrvhtxahg-Fyforgdxca-Ceqzf-Muz stions.htmlTo learn more about the COVID-19 vaccine, we invite you to visit the CDC website for a list of frequently asked questions. https://www.cdc.gov/coronavirus/2019-ncov/vaccines/faq.html [facility] Patient Portal Access Instructions: Stay connected with your healthcare team and access your personal medical information anytime with the [facility] Patient Portal. If you would like a full copy of your medical records please contact the [facility] Medical Records Department Sunday through Sunday between 8a.m. and 4:30p.m. Please follow the directions below to access the portal: 1.Access the email account you provided upon registration to the [facility].2.Look for an invitation email from [facility].3.Open the email and access the invitation link: Accept Invitation to [facility]4.Fill in the required stephens to create your account. Sign into [email or web address].[email or web address] with your username and password that you [...] you will allow to register on the [facility] Patient Portal for access to your information. You can also access the [facility] Patient Portal on the L[employer] kati. Simply click on Health Records under Friendferta and then click on the [facility] logo. [...] Call your local pharmacy or go to http://bit.ly/6H0Bz9g to find one close to you.3.Make use of household items: Use cat litter or old coffee grounds to dispose medications if other options arenot available. Mix your drugs with these household products, seal them in an airtight container andthrow it into the garbage. Call [facility]: [phone] to be sure your drugs can be [...] aware that I should contact my doctor. Patient/Customer Acquisition Manager Signature: Date/Time: Relationship to Patient: Witness Name/Signature: Date/Time: [facility]12-20-2024 Note* Exam Date Time Procedure Performing Provider Status 05/23/24 7:51 PM EKG [ED AOH] - CV RAYMUNDO VIEIRA DO; Auth (Verified) ECG Final Report Sinus rhythm Incomplete left bundle branch block Left ventricular hypertrophy Anterior Q waves, possibly due to LVH Electronic Signature: RAYMUNDO VIEIRA DO 05/23/2024 20:06:14 [facility]11-26-2024 [facility] 04-25-2024 Evaluation note* Diagnosis Onset Date Resolution Status Admit Date Chronic pain resolved April 3:52pm Dehydration resolved April 3:52pm Hyperglycemia resolved April 252023 3:52pm Hyponatremia resolved April 3:52pm Leukocytosis resolved April 3:52pm Nausea vomiting and diarrhea resolve d April 25, 2024 3:52pm Tachycardia resolved April 3:52pm Candidiasis of breast inactive [facility] 2023 3:52pm Colitis inactive April 25, 2024 3:52pm Debility inactive April 25, 2024 3:52pm Generalized weakness inactive [facility] 2023 3:52pm UTI (urinary tract infection) acute June 29, 2024 8:31pm Colitis deleted June 29, 2024 8:31pm Dehydration resolved June 29, 2024 8:31pm Sepsis due to gram-negative UTI deleted June 29 8:31pm [facility] Work Phone: 1(416) 665-873809-17-2024 [facility]07-30-2024 [facility]06-18-2024 Telephone encounter Note* Telephone Encounter - Stephanie De La Cruz - 11/20/2023 8:48 AM EDT The patient was discharged from [facility] 10-20-23 with an order to schedule with the Heart Failure Clinic. The Clinic reached out to the patient with no response. Therefore, this is considered a deferral of the Clinic's services at this time. [facility]06-18-2024 Miscellaneous Notes* Telephone Encounter - Stephanie De La Cruz - 11/20/2023 8:48 AM EDT The patient was discharged from [facility] 10-20-23 with an order to schedule with the [facility] Failure Clinic. The Clinic reached out to the patient with no response. Therefore, this is considered a deferral of the Clinic's services at this time. documented [facility] Telephone encounter Note * Telephone Encounter - Stephanie De La Cruz - 10/22/2023 9:35 AM EDT Patient was discharged from [facility] 10-20-23 with an order to schedule with the [facility] Failure Clinic. However, the patient was then immediately admitted to a penitentiary facility. A letter was mailedto the patient asking them to contact the Clinic upon discharge from the facility. [facility]05-20-2024 Miscellaneous Notes* Telephone Encounter - Stephanie De La Cruz - 10/22/2023 9:35 AM EDT Patient was discharged from [facility] 10-20-23 with an order to schedule with the Heart Failure Clinic. However, the patient was then immediately admitted to a penitentiary facility. A letter was mailedto the patient asking them to contact the Clinic upon discharge from the facility. documented in this [facility]Mer[facility]2024 NoteHNO ID: [id number] Author: MICHAEL NGUYỄN LSW Service: Care Management Author Type: Curriculum Counselor Type: Care Mgt Progress Note Filed: 10/19/2023 14:54 Note Text: CARE MANAGEMENT DISCHARGE NOTE SERVICE DATE: October 19, 2023 SERVICE TIME: 1:56 PM Admission Date: 10/18/2023 LOS: 0 days Discharge Arrangement Discharge Arrangement: Prison Facility Was an expedited discharge program used?: No Services Arranged Return to SNF Provider Name: [place] Caregiver Assessment Caregiver is ready, willing and able to meet the patient's needs as recommended by the inter-professional team: No Caregiver needed Transportation Arrangements Transportation Arrangements: Ambulance Transportation Agency and Phone #:: [facility] ( [facility] ) [phone] / [phone] Date of Trip: 10/19/23 Time of Trip: 0800 Type of Service: BLS Non-emergency Is Patient Medicaid Pending?: No Was transportation financial coverage discussed with family?: Patient Motion 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 Note HNO ID: [id number] Author: MICHAEL NGUYỄN LSW Service: Care Management Author Type: Curriculum Counselor Type: Care Mgt Initial Assessment Filed: 10/19/2023 15:16 Note Text: CARE MANAGEMENT: ASSESSMENT AND DISCHARGE PLAN SERVICE DATE: October 19, 2023 SERVICE TIME: 1:00 PM PCP: Nathaly Leonard Primary Contact: Extended Emergency Contact Information Primary Emergency Contact: Curry Jackson Jr Address: [address] [place] [address] [place] Mobile Relation: Spouse Secondary Emergency Contact: Rebecca Dueñas Address: [place] [address] [facility] Relation: Mother Admission Status: Observation Insurance Provider: [employer] Discharge Planning requested by: Per Department Practice Potential Transition Plans Prison Facility/Intermediate Care Facility Advance Directives Current Advance Directive: None 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 No Discharge Planning Participant(s): Patient Patient/Family Comments: Caregiver Assessment: Caregiver is ready, willing and able to meet the patient's needs as recommended by the inter-professional team: No Caregiver needed Transport at Discharge: Transportation Arrangements: Ambulance Transportation Agency and Phone #:: [facility] ( [facility] ) [phone] / [phone] Date of Trip: 10/19/23 Time of Trip: 0800 Type of Service: BLS Non-emergency Is Patient Medicaid Pending?: No Was transportation financial coverage discussed with family?: Patient Motion Picture Cameraman Location: [facility] Destination: [place] Needs Prior to Discharge: Needs Prior to [...] her hospital bed. Support: Rebecca Dueñas (mother) [phone] and Curry Jackson Jr (Spouse) [phone] Pharmacy: [facility] [address] [place] [address] PCP: Nathaly Leonard, Nathaly Leonard The patient was at [facility] 09-02-23 till 09-08-23 after fall and found to have Closed displaced intertrochanteric fracture of right femur. Ortho did surgery and the patient went to [facility]. The patient reports she wants return [...] 19, 2023 TIME: 2:59 PM CONTACT #: [phone][facility]05-16-2024 Telephone encounter Note* Telephone Encounter - Ethel Alonso - 10/18/2023 3:00 PM EDT Spoke to Cindi - she is going [facility] to arrange for transport. She did state that sometimes they can continuous pickling line pickler helper in 15 minutes but sometimes it can take hours. Cindi does have direct phone # and knows I am in office until 530pm should she need to reach the office, after that to call the main office phone #. Also verified [facility] ED address. Thank you Ethel Shah [facility]05-16-2024 Miscellaneous Notes* Telephone Encounter - Ethel Alonso - 10/18/2023 3:00 PM EDT Spoke to Cindi - she is going to contact [facility] to arrange for transport. She did state that sometimes they can continuous pickling line pickler helper in 15 minutes but sometimes it can take hours. Cindi does have direct phone # and knows I am in office until 530pm should she need to reach the office, after that to call the main office phone #. Also verified [facility] ED address. Thank you Ethel Shah * Telephone Encounter - Ethel Alonso - 10/18/2023 10:41 AM EDT Returned Sara's call from [facility] regarding Trenton - last nurse we spoke to (Bryant), they were to take patient to [place] ED and follow up with local ortho md. Called and spoke to Cindi - when order was given to Bryant in regards to giving an antibiotic & taking to [place] ED for surgical consult if no improvement - there was no follow through on that end. The prison physician did give an antibiotic 09/27/23 - 10/04/23 and nothing was done after that until Cindi saw Trenton on 10/15/23 & sent her to [place] ED. The ED gave her pain medication [...] Thank you Ethel Shah documented in this encounterMer[facility]24 Telephone encounter Note * Telephone Encounter - Ethel Alonso - 10/18/2023 10:41 AM EDT Returned Sara's call from [facility] regarding [place] - last nurse we spoke to (Bryant), they were to take patient to [place] ED and follow up with local ortho md. Called and spoke to Cindi - when order was given to Bryant in regards to giving an antibiotic & taking to [place] ED for surgical consult if no improvement - there was no follow through on that end. The prison physician did give an antibiotic 09/27/23 - 10/04/23 and nothing was done after that until Cindi saw Trenton on 10/15/23 & sent her to [place] ED. The ED gave her pain medication [...] May for review Thank you Ethel Shah [facility]05-15-2024 Telephone encounter Note* Telephone Encounter - Ethel Alonso - 10/17/2023 4:43 PM EDT Left [address] [facility]05-15-2024 Miscellaneous Notes* Telephone Encounter - Ethel [...] calling if other than patient: Bryant @ [facility] Return call to if other than patient: same Best contact number: [phone] Thank you, Pauly Heredia October 09, 2023 9:46 AM documented in this encounterMercy [facility] St. [facility]05-13-2024 Discharge summary Author Jeremiah Rawls [facility] October 15, 2023 5:33pm Note Date/Time October 15, 2023 4:51p [facility] Medical Records Department [address] [place] [address] Emergency Department Summary 10/15/23 MR#: [id number] Acct: [id number] Name: TRENTON JACKSON Rep #:[id number] : 1970 53 From: Jeremiah Rawls MD PCP: [facility] St atus:[facility] ER Location: ED HPI History of Present Illness Chief Complaint: Lower Extremity Injury Narrative Narrative: 53-year-old female past medical history of right hip arthroplasty status post fracture at the end of September around [facility]. She states that she was trying to go to the bathroom, but did not make it and had fallen. She sustained a fracture of her right hip. She states that she was sent to [place] for surgery. She is now to penitentiary facility locally for rehabilitation. She takes oxycodone and a muscle relaxer. She denies any recent falls but states she is continuing to have right hip pain. She also states that she has history of a surgical wound infection for which she was on antibiotics for 7 days intravenously. She states that penitentiary facility wants her wound evaluated as well. [facility] Medical History Acute dyspnea Aftercare following surgery of the circulatory system Alcohol abuse Amputation toe CAD (coronary artery disease), [place] coronary artery CHF (congestive heart failure) Depression [...] she can be discharged back to the penitentiary facility. She will continue her oxycodone and muscle relaxer. She will continue her rehabilitation of her right hip. Disposition is discharged to penitentiary facility in stable condition. Radiography Diagnostic Testing: [...] come pick it up Primary Care Provider: [facility] Nathaly Finney Referrals: [facility] Nathaly Finney [Primary Care Provider] - Activity Restrictions/Additional Instructions: Continue your previous pain medications. Your postoperative wound does not appear to be acutely infected. Disposition Disposition: Home, Self Care What to do if you have Problems For any increased pain, shortness of breath, bleeding, nausea or vomiting, chestpain, or any unexpected problems, contact your Primary Care Provider. Call [facility] ([phone]) or report to the closest Emergency Room. Call 911 if necessary. 10/15/23 1733 <Electronically signed by Jeremiah Rawls MD> Cosigner Signature (if applicable): CC: [facility] ~ Signed [facility] Work Phone: 1([phone]) 420-891705-07-2024 Telephone encounter Note* Telephone Encounter - Ethel [...] calling if other than patient: Bryant @ [facility] Return call to if other than patient: same Best contact number: [phone] Thank you, Pauly Heredia October 09, 2023 9:[address] [facility]05-06-2024 Telephone encounter Note* Telephone Encounter - Ethel Alonso - 10/08/2023 3:45 PM EDT Left message for Bryant to get an update on Trenton. Last message to her was instructions from Dr. May regarding giving her antibiotics, taking her to [place] emergency department if no improvements for a surgical consult. Thank you Ethel Dave [place] [employer]05-06-2024 Miscellaneous Notes* Telephone Encounter - Ethel Alonso - 10/08/2023 3:45 PM EDT Left message for Bryant to get an update on Trenton. Last message to her was instructions from Dr. May regarding giving her antibiotics, taking her to [place] emergency department if no improvements for a [...] which facility was the patient seen at: [facility] Was an appointment scheduled (Y/N): no-unable to schedule per tool [facility] Return call to if other than patient: Bryant Best contact number: [phone] Thank you, Melany Simon October 03, 2023 1:23 PM documented in this encounterMer[facility]. [facility]05-02-2024 Telephone encounter Note * Telephone Encounter [...] which facility was the patient seen at: [facility] Was an appointment scheduled (Y/N): no-unable to schedule per tool Person calling if other than patient: [facility]) Return call to if other than patient: Bryant Best contact number: [phone] Thank you, Melany Alfred October 03, 2023 1:[address] [facility]05-01-2024 Telephone encounter Note* Telephone Encounter - [...] he would like her taken to the [place] Emergency Department for a surgical consult. Left my direct phone number so Bryant can call to let me know status. Thank you Ethel Shah [facility]05-01-2024 Miscellaneous Notes* Telephone Encounter - Ethel [...] he would like her taken to the [place] Emergency Department for a surgical consult. Left [...] n Person calling if other than patient: [facility] Return call to if other than patient: bryant Chuck contact number: [phone] Thank you, Agata Das October 02, 2023 11:16 AM documented in this encounterMer[facility]04-30-2024 Telephone encounter Note * Telephone Encounter [...] n Person calling if other than patient: [facility] Return call to if other than patient: bryant Chuck contact number: [phone] Thank you, Agata Das October 02, 2023 11:[address] [facility]04-29-2024 Telephone encounter Note* Telephone Encounter - Ethel Alonso - 10/01/2023 11:04 AM EDT Left message w/Clare. She will have Stephania call me when she is back on the floor with an update on Trenton. All Clare can say is that she knows Trenton is still on the antibiotics. Gave Clare my direct phone #. Thank you Ethel Shah [facility]04-29-2024 Miscellaneous Notes* Telephone Encounter - Ethel [...] wound to review. thx documented in this encounterMer[facility] St. [facility]04-29-2024 Telephone encounter Note * Telephone Encounter - Ethel Alonso - 10/01/2023 10:38 AM EDT ----- Message from Diya May MD sent at 09/30/2023 1:53 PM EDT ----- Please get me an update on her status. Also, a new picture of the wound to review. thx [facility]04-25-2024 Telephone encounter Note* Telephone Encounter - Ethel Alonso - 09/27/2023 3:34 PM EDTSummary: ABSCESS AT INCISION Received message from Stephania at [facility] stating Trenton is forming an abscess the [...] she is in [place]. Dr. Posadas - [phone] He would like if the facility could send a picture of the incision and to start her on Doxycycline 100mg BID. Called Stephania with instructions and Dr. Posadas' phone number. Thank you Ethel Shah [facility]04-25-2024 Miscellaneous Notes* Telephone Encounter - Ethel Alonso - 09/27/2023 3:34 PM EDTSummary: ABSCESS AT INCISION Received message from Stephania at [facility] stating Trenton is forming an abscess the [...] she is in [place]. Dr. Posadas - [phone] He would like if the facility could send a picture of the incision and to start her on Doxycycline 100mg BID. Called Stephania with instructions and Dr. Posadas' phone number. Thank you Ethel Shah documented in this encounterMer[facility]12-2024 Miscellaneous Notes* Telephone Encounter - Ethel Alonso - 09/14/2023 2:37 PM EDT Left a message for Nurse Mgdylon Ruiz at the rehab facility ([phone]) that we do not need toschedule an appointment at this time but we would like to have a disc with an x-ray of Trenton's pelvis for review 09/17/23. Thank you Ethel Shah * Telephone Encounter - Ethel Alonso - 09/12/2023 9:24 AM EDT ----- Message from Evelyne Madsen sent at 09/11/2023 2:07 PM EDT ----- Regarding: Segpa-Snflbe-na follow up post op- hip fracture Subject [...] which facility was the patient seen at: [facility] Was an appointment scheduled (Y/N): N/A Person calling if other than patient: REHAB [facility] Return call to if other than patient: REHAB Best contact number: [phone] Thank you, Evelyne Madsen September 11, 2023 2:07 PM documented in this encounterMer[facility] NoteHNO ID: [id number] Author: DANI LAGOS, CHAYITO Service: Nursing Author Type: Registered Nurse Type: Nursing Progress Note Filed: 09/07/2023 15:39 Note Text: Other: Okay to give oxy early prior to 1700 d/c per Pablo [facility]2024 NoteHNO ID: [id number] Author: KAYLA JOHNSON, Roscoe Service: Care Management Author Type: ? Type: Care Mgt Progress Note Filed: 09/07/2023 14:05 Note Text: [facility]CERT [facility] for [facility]/. Precert approved through 09/18. [facility] Medicaid precert for [facility] in CS portal is approved for 09/06 to 09/18 Reference #: [id number] --Dx-S72.141A -- ID: [id number] For any additional questions regarding approvals, transport or care management needs, please contact the CM assigned to this patient in the Treatment Team. SIGNATURE: Kayla Johnson DATE: September 07, 2023 TIME: 2:05 [facility]04-05-2024 NoteHNO ID: [id number] Author: MONICA CHAPARRO APRN.CNP Service: General Surgery Author Type: Nurse Practitioner Type: Progress Notes Filed: 09/07/2023 09:11 Note Text: Trauma Surgery Progress Note SERVICE DATE: 09/07/2023 Trauma Service Pager: For questions or concerns Mon-Fri 6a-5p please page [phone]. After 5pm and on Weekends and Holidays, please page [phone] if in ICU or [phone] if on RNF. SUBJECTIVE: NAEON. Patient nauseated [...] 0659 09/07/23 0700 - 09/08/23 0659 Shift 7230-2766 2570-0402 1158-5887 24 Hour Total 6476-7103 0882-2307 4612-8248 24 Hour Total INTAKE Shift Total OUTPUT Urine 900 1000 1900 Urine Not Saved. 1 x 1 x Output ( External Collection Device 09/04/23 2573) 525 6141 1900 Emesis 50 50 Emesis (ml) 50 [...] 09/02/2023 Fall 09/02/2023 Coronary artery disease involving united keetoowah coronary artery of united keetoowah heart without angina pectoris 07/21/2018 Cannabis use disorder, mild, abuse 07/20/2018 Chronic Uncontrolled type 2 diabetes mellitus with hyperglycemia, with long-term current use of insulin (HCC) 06/08/2018 Chronic systolic heart failure (HCC) 06/08/2018 Anxiety and depression 06/08/2018 Cardiomyopathy (HCC) 12/02/2017 Essential hypertension 02/20/2017 Assessment: 53 year old female s/p mechanical GLF ([place] trans (more content not included)...[facility]04-04-2024 NoteHNO ID: [id number] Author: MELISSA PHAM PA-C Service: General Surgery Author Type: Physician Director Appointment Type: Progress Notes Filed: 09/06/2023 14:41 Note [...] intertrochanteric femur fracture as result of trauma [facility]04-04-2024 NoteHNO ID: [id number] Author: MELISSA PHAM PA-C Service: General Surgery Author Type: Physician Director Appointment Type: Progress Notes Filed: 09/06/2023 11:21 Note Text: Trauma Surgery Progress Note SERVICE DATE: 09/06/2023 Trauma Service Pager: For questions or concerns Mon-Fri 6a-5p please page [phone]. After 5pm and on Weekends and Holidays, please page [phone] if in ICU or [phone] if on [...] 09/05/23699 - 09/06/2365809/06/23699 - 09/07/23 0659 Shift 1879-4653 2729-6688 8118-4215 24 Hour Total 4551-6535 3490-5280 4302-6385 24 Hour Total INTAKE Shift Total OUTPUT Urine 5679 589 0162 Output ( External Collection Device 09/04/23 1025) 4580 716 9162 Shift Total 6690 337 7527 Weight (kg) 72.6 72.6 72.6 72.6 72.6 [...] 09/02/2023 Fall 09/02/2023 Coronary artery disease involving united keetoowah coronary artery of united keetoowah heart without angina pectoris 07/21/2018 Cannabis use disorder, mild, abuse 07/20/2018 Chronic Uncontrolled type 2 diabetes mellitus with hyperglycemia, with long-term current use of insulin ([facility]) 06/08/2018 Chronic systolic heart failure ([facility]) 06/08/2018 Anxiety and depression 06/08/2018 Cardiomy (more content not included)...[facility]04-03-2024 NoteHNO ID: [id number] Author: TERRIE URIOSTEGUI RN Service: Care Management [...] disorder, mild, abuse Coronary artery disease involving united keetoowah coronary artery of united keetoowah heart without angina pectoris Trauma Fall Resolved Problems: * No resolved hospital problems. * Physician: Jozef Barros DO SIGNATURE: Terrie Uriostegui RN PATIENT NAME: Trenton Jackson DATE: September 05, 2023 TIME: 4:09 PM PAGER/CONTACT #: [phone] Regional Hospital04-03-2024 NoteHNO ID: [id number] Author: TERRIE URIOSTEGUI RN Service: Care Management Author Type: Registered Nurse Type: Care Mgt Progress Note Filed: 09/05/2023 15:44 Note Text: CARE MANAGEMENT PROGRESS NOTE SERVICE DATE: 09/05/2023 SERVICE TIME: 2:52 PM LOS: 3 days Arnold of Choice Given: Yes Level of Care Discussed: Prison Facility Financial Disclosure Provided: No Provider List: Prison Facility Provider list within the patient's requested geographic area shared with the patient/family: Yes within: 15 miles of zip code: [address] Quality and resource use metrics shared with the patient that are relevant to the patient's goals of care and treatment preferences:: Yes DC Plan: SNF , discussed pt/ot recs for SNF, pt agreeable to snf list, snf list provided, FOC is [facility]; agreeable to sending additional referrals to [facility], [facility] , and [facility] ; referrals sent Barriers to dc: precert needs to be initiated Anticipated dc date: 09/05-09/06 Transportation: pt will likely need transportation arrangements at nd ADDENDUM: [facility] still has not accepted, pt agreeable to starting precert with [facility], precert requested; Attestation note in place on 09/04 still needs cosigned SIGNATURE: Terrie Uriostegui RN PATIENT NAME: Trenton Jackson DATE: September 05, 2023 TIME: 2:52 PM PAGER/CONTACT #: [phone] Regional Hospital04-03-2024 NoteHNO ID: [id number] Author: DIYA MAY MD Service: Care Management [...] disorder, mild, abuse Coronary artery disease involving united keetoowah coronary artery of united keetoowah heart without angina pectoris Trauma Fall Resolved Problems: * No resolved hospital problems. * Physician: Jahaira Alfaro MD SIGNATURE: Terrie Uriostegui RN PATIENT NAME: Trenton Jackson DATE: September 05, 2023 TIME: 11:55 AM PAGER/CONTACT #: [phone] Regional Hospital04-03-2024 NoteHNO ID: [id number] Author: ROBERTO DAS PA-C Service: General Surgery Author Type: Physician Director Appointment Type: Progress Notes Filed: 09/05/2023 07:58 Note [...] 0659 09/05/23 07 - 09/06/23 0659 Shift 1561-3684 9344-5024 1503-8112 24 Hour Total 1451-4873 2390-2795 2741-6435 24 Hour Total INTAKE PO 120 120 [...] femur (HCC) 09/02/2023 Dyslipidemia (more content not included)...[facility] 09-05-2023 NoteHNO ID: [id number] Author: NICHELLE VIRAMONTES MD Service: Orthopaedic Surgery [...] from 5p-6a and on weekends for any issues.[facility]04-02-2024 NoteHNO ID: [id number] Author: NORM RUEDA LSW Service: Care Management Author Type: Curriculum Counselor Type: Care Mgt Progress Note Filed: 09/04/2023 [...] or get rid of a hangover (eye wound care center consultant)? No 6. CAGE Screening? No 7. If [...] 04, 2023 TIME: 10:39 AM PAGER/CONTACT #: [phone] 09-04-2023 NoteHNO ID: [id number] Author: ROBERTO DAS PA-C Service: General Surgery Author Type: Physician Director Appointment Type: Progress Notes Filed: 09/04/2023 08:51 Note [...] 09/03/23699 - 09/04/2365809/04/23699 - 09/05/23 0659 Shift 4976-1768 2137-7032 4312-3000 24 Hour Total 9406-6249 3608-2334 8458-4966 24 Hour Total INTAKE PO 120 120 [...] insight into current situa (more content not included)...[facility]04-02-2024 NoteHNO ID: [id number] Author: DIYA MAY MD Service: Orthopaedic Surgery [...] from 5p-6a and on weekends for any issues.[facility]04-01-2024 NoteHNO ID: [id number] Author: SAVANNA FREEMAN LSW Service: Care Management Author Type: Curriculum Counselor Type: Care Mgt Progress Note Filed: 09/03/2023 16:06 Note Text: CARE MANAGEMENT PROGRESS NOTE SERVICE DATE: 09/03/2023 SERVICE TIME: 4:05 PM LOS: 1 day SW Consult SW attempted to see pt to complete trauma assessment, pt off the floor. SIGNATURE: SANDRA Barbosa PATIENT NAME: Trenton Jackson DATE: September 03, 2023 TIME: 4:05 PM PAGER/CONTACT #: [phone]. [facility] 09-03-2023 NoteHNO ID: [id number] Author: GHASSAN PÉREZ APRN.CRNA Service: Anesthesiology Author Type: Nurse Production Associate Type: Anesthesia Procedure Notes Filed: 09/03/2023 12:36 [...] September 03, 2023 TIME: 12:35 PM CSN: [id number]. Bernard Parish Hospital04-01-2024 NoteHNO ID: [id number] Author: MOODY HODGE DO Service: Anesthesiology Author [...] September 03, 2023 TIME: 12:34 PM CSN: [id number]. Bernard Parish Hospital04-01-2024 NoteHNO ID: [id number] Author: GHASSAN PÉREZ APRN.CAN FILLER Service: Anesthesiology Author Type: Nurse Production Associate Type: Anesthesia Procedure Notes Filed: 09/03/2023 12:34 Note Text: ANESTHESIOLOGY PROCEDURE NOTE Airway General Information Procedure Start Time/Medication Administration: 09/03/2023 12:10 PM Patient location during procedure: OR Timeout Performed Pre-procedure: timeout performed Consent Obtained: Yes Patient identity confirmed: arm band and patient Staffing CAN FILLER: Ghassan Pérez APRN.CAN FILLER Performed by: REGINA Indications and Patient Condition [...] September 03, 2023 TIME: 12:34 PM CSN: [id number]. Bernard Parish Hospital04-01-2024 NoteHNO ID: [id number] Author: DARLYN JASSO RN Service: Care Management Author Type: Registered Nurse Type: Care Mgt Initial Assessment Filed: 09/03/2023 11:08 Note Text: CARE MANAGEMENT: ASSESSMENT AND DISCHARGE PLAN SERVICE DATE: September 03, 2023 SERVICE TIME: 10:55 AM PCP: Nathaly Leonard Primary Contact: Extended Emergency Contact Information Primary Emergency Contact: Curry Jackson Jr Address: [address] [place], [place] [address] [facility] Mobile Relation: Spouse Secondary Emergency Contact: Rebecca Dueñas Address: [place] [address] [facility] Relation: Mother Admission Status: Inpatient Insurance [facility] Discharge Planning requested by: Per Department Practice Potential Transition Plans To Be Determined Advance Directives Current Advance Directive: None 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 Per EMS, patient feel on the wet [...] this. She wants to go close to [place] where she and her family lives. The patient will need transportation arranged at d/c. SIGNATURE: Darlyn Jasso RN PATIENT NAME: Trenton Jackson DATE: September 03, 2023 TIME: 10:54 AM CONTACT #: [phone] Regional Hospital04-01-2024 NoteHNO ID: [id number] Author: MONICA CHAPARRO APRN.CNP Service: General Surgery [...] 09/03/23 0659 09/03/23699 - 09/04/23 0659 Shift 7235-0715 7949-4482 3431-9908 24 Hour Total 9365-4434 7073-9481 1564-9518 24 Hour Total INTAKE Shift Total OUTPUT [...] femur (HCC) 09/02/2023 Coronary artery disease involving united keetoowah coronary artery of united keetoowah heart without angina pectoris 07/21/2018 Uncontrolled type 2 diabetes mellitus with hyperglycemia, with long-term current use of i (more content not included)...[facility] 09-03-2023 NoteHNO ID: [id number] Author: ALLI GARCÍA MD Service: Orthopaedic Surgery [...] 06/08/2018 Alli García MD Orthopaedic Surgery Pager #[phone] September 02St[facility]03-31-2024 NoteHNO ID: [id number] Author: VIRGINIA BOSE [facility] Service: Pharmacy Author Type: Pharmacist Type: Plan of Care Filed: 09/06/2023 15:35 Note Text: PHARMACY MEDICATION REVIEW Patient Name: Trenton Jackson : 1970 The following medications were updated within the [employer] medication list based on discharge note from [place] 06/2023 - patient likely nonadherent with medications prior to admission based on fill history: Medications ADDED to [employer] medication list Carvedilol 12.5 mg tablet; Take [...] Take 50 gm daily Medications CHANGED on [employer] medication list Escitalopram 10 mg tablet; Take 10 mg daily Medications REMOVED from [employer] medication list Acetaminophen (no recent fills) Baclofen (from 2019, no recent fills) Benzocaine (from 2015, no recent fills) Buspirone (from 2019, no recent fills) Dicyclomine (from 2017, no recent fills) Ibuprofen Insulin lispro (from 2018, no recent fills) Lisinopril (now on Entresto) Metoprolol (more recently on carvedilol) Omeprazole (pt on pantoprazole per [place] 06/2023 discharge summary) Oxycodone-acetaminophen (last fill #14 tabs in 05/2023 per [facility]) Ranolazine (from 2018, no recent fills) Additional comments: N/A The below information represents the best possible medication history: Yes, but would recommend confirming prescriptions with patient/family when able. Patient declined to answer questions and the number for in chart would not connect on 09/02/23. Medication history completed by: Pharmacist: Virginia Bose [facility] Source of history: Care Everywhere records Medication nonadherence identified: Unable to assess Reconciliation completed: Yes Completed by: YOLANDA Patient interested in Bedside Delivery Services or using OP Pharmacy at discharge? Unable to assess Preferred outpatient pharmacy: [facility] [place] [address] [address] [facility] [phone] [facility] [place] [address] [address] [facility] - [phone] Allergies: Latex Itching Comment:Red and dry cracking [...] daily. Facility-Administered Medications: None (more content not included)...[facility]03-31-2024 History of Past illness Narrative* Problem [...] of this encounter (statuses as of 09/14/2023) [facility]01-13-2024 Discharge summary Author Jeermy Alexander [facility] June 16, 2023 9:45am Note Date/Time June 16, 2023 9 :20am [facility] Medical Records Department [address] [place] [address] Discharge Summary 06/16/23 0920 MR#: [id number] Acct: [id number] Name: TRENTON JACKSON Rep #:[id number] : 1970 52 From: Jeremy Ahuja PCP: 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 Lantus insulin dose decreased From 25 to [...] Normal S2, no murmur. Decreased pulsation of [employer] and dorsalis artery left more than right. [...] Attending Provider: Jeremy Alexander [facility] Providers: Talisha Boykin; Moody Gallagher [...] Adv Practice Prof] - Within 2 Weeks [facility] [Primary Care Provider] - Moody Gallagher DPM [Med Staff - Active Staff] - Within 2 Weeks (For left ankle fracture. Status post TMA.) Disposition Disposition (needs filled in before D/C Order can be placed): Home, Self Care Charges/Coding Visit Charges Inpatient E&M: 56745 Disch Hosp >30min 06/16/23 0945 <Electronically signed by Jeremy Alexander MD> Cosigner Signature (if applicable): CC: Dr. Jeremy Alexander MD; [facility]~ Signed [facility] Work Phone: 1(667) 603-852201-13-2024 Discharge summary Author Jeremy Alexander [facility] June 16, 2023 9:20am Note Date/Time June 16, 2023 8 :42am [facility] System Medical Records Department [address] [place] [address] Discharge Summary 06/16/23 0842 MR#: [id number] Acct: [id number] Name: TRENTON JACKSON Rep #:[id number] : 1970 52 From: Jeremy Ahuja PCP: [facility] St atus:ADM IN Location: [place] [address] Providers Date of Admission: 06/13/23 Primary Care Physician: [facility] Consultations 06/15/23 15:32 Consult: Podiatry Routine Consulting [...] % (Auto) 61.2, Lymph % (Auto) 22.9, Brule % (Auto) 8.9, Eos % (Auto) 5.7 [...] % (Auto) 68.5, Lymph % (Auto) 20.3, Brule % (Auto) 6.0, Eos % (Auto) 3.9, [...] 79.1 H, Lymph % (Auto) 11.4 L, Brule % (Auto) 4.9, Eos % (Auto) 3.2, [...] 12:33 EST Reading Location ID and State: [facility] / [place] , Service support , D/C Instructions Discharge [...] Attending Provider: Jeremy Alexander [facility] Providers: Talisha Boykin; Moody Gallagher [...] Adv Practice Prof] - Within 2 Weeks [facility] [place] [Primary Care Provider] - Disposition Disposition (needs filled in before D/C Order can be placed): Home, Self Care Charges/Coding Visit Charges Inpatient E&M: 99800 Disch Hosp >30min 06/16/23 0920 <Electronically signed by Jeremy Alexander MD> Cosigner Signature (if applicable): CC: Dr. Jeremy Alexander MD; [facility]~ Signed [facility] Work Phone: 1(130) 973-977601-13-2024 Discharge summary Author Jeremy Alexander [facility] June 16, 2023 9:19am Note Date/Time June 16, 2023 8 :42am [facility] System Medical Records Department [address] [place] [address] Instructions for Home/Discharge Instructions 06/16/23 0841 MR#: [id number] Acct: [id number] Name: TRENTON JACKSON Rep #:[id number] : 1970 52 From: Jeremy Ahuja PCP: [facility] St atus:ADM IN Discharge Instructions Diet Discharge [...] Attending Provider: Jeremy Alexander Primary Care Provider: [facility] Consulting Providers: Talisha Boykin; Moody Gallagher Discharge [...] Qty: 30 0RF Referrals / Follow Up: [facility] [Primary Care Provider] - Yesenia Zambrano PA [Med Staff - Adv Practice Prof] - Within 2 Weeks Disposition Disposition (needs filled in before D/C Order can be placed): Home, Self Care 06/16/23918<Electronically signed by Jeremy Alexander MD>Jeremy Alexander MD CC: ALEK Gallagher; Dr. Talisha Boykin MD; [facility] ~ Signed [facility] Work Phone: 1(428) 577-202501-12-2024 Progress note Author Jeremy Alexander [facility] June 15, 2023 5:50pm Note Date/Time June 15, 2023 5 :50pm [facility] System Medical Records Department [facility] [place] [address] Progress Note - Hospitalist 06/15/23 1532 MR#: [id number] Acct: [id number] Name: TRENTON JACKSON Rep #:[id number] : 1970 52 From: Jeremy Ahuja PCP: [facility] atus:ADM IN Location: [place] [address] Reason for Visit Reason for Visit: Diagnoses [...] % (Auto) 61.2, Lymph % (Auto) 22.9, Brule % (Auto) 8.9, Eos % (Auto) 5.7 [...] Normal S2, no murmur. Decreased pulsation of [employer] and dorsalis artery left more than right. [...] % (Auto) 61.2, Lymph % (Auto) 22.9, Brule % (Auto) 8.9, Eos % (Auto) 5.7 [...] % (Auto) 68.5, Lymph % (Auto) 20.3, Brule % (Auto) 6.0, Eos % (Auto) 3.9, [...] 79.1 H, Lymph % (Auto) 11.4 L, Brule % (Auto) 4.9, Eos % (Auto) 3.2, [...] Sens 17 Charges/Coding Visit Charges Inpatient E&M: 88038 Subs Hosp L2 06/15/23 2460 <Electronically signed by Jeremy Alexander MD> Cosigner Signature (if applicable): CC: ~ Signed [facility] Work Phone: 1(302) 935-697001-11-2024 Progress note Author Jeremy Alexander [facility] June 14, 2023 3:46pm Note Date/Time June 14, 2023 3 :46pm [facility] System Medical Records Department [address] [place] [address] [place] [address] Progress Note - Hospitalist 06/14/23 1304 MR#: [id number] Acct: [id number] Name: TRENTON JACKSON Rep #:[id number] : 1970 52 From: Jeremy Ahuja PCP: [facility] atus:ADM IN Location: [place] [address] Reason for Visit Reason for Visit: Diagnoses [...] (Auto) 76.1 H, Lymph % (Auto) 14.9 L,Brule % (Auto) 5.5, Eos % (Auto) 2.3, [...] Normal S2, no murmur. Decreased pulsation of [employer] and dorsalis artery left more than right. [...] % (Auto) 68.5, Lymph % (Auto) 20.3, Brule % (Auto) 6.0, Eos % (Auto) 3.9, [...] 79.1 H, Lymph % (Auto) 11.4 L, Brule % (Auto) 4.9, Eos % (Auto) 3.2, [...] Sens 17 Charges/Coding Visit Charges Inpatient E&M: 13127 Subs Hosp L2 06/14/23 1546 <Electronically signed by Jeremy Alexander MD> Cosigner Signature (if applicable): CC: ~ Signed [facility] Work Phone: 1(667) 247-357501-10-2024 History and physical note Author Talisha [facility] June 13, 2023 7:02pm Note Date/Time June 13, 2023 1 2:24[facility] Medical Records Department [address] [place] [address] History & Physical Exam 06/13/23 0012 MR#: [id number] Acct: [id number] Name: TRENTON JACKSON Rep #:[id number] : 1970 52 From: Talisha Boykin MD PCP: [facility] atus:ADM IN Location: [facility] [id number]- [id number] HPI - General General Date of [...] managed for acute exacerbation of heart failure. [facility] Medical History Acute dyspnea Aftercare following surgery of the circulatory system Alcohol abuse Amputation toe CAD (coronary artery disease), united keetoowah coronary artery CHF (congestive heart failure) Depression [...] % (Auto) 68.5, Lymph % (Auto) 20.3, Brule % (Auto) 6.0, Eos % (Auto) 3.9, [...] elects to be full code. * Total zmeo-nh-[id number] time 16 minutes. Total time spent on evaluation and management of patient, reviewing chart and specialist notes, discussing plan with patient, discussion with nursing and ancillary staff as well as documentation: 76 mins Charges/Coding Visit Charges Inpatient E&M: 36719 Init Hosp L3 Procedures Hospitalists Procedures: 67010 Advncd Care Plan 30 Min 06/13/23 1902 <Electronically signed by Talisha Boykin MD> Cosigner Signature (if applicable): CC: Dr. Talisha Boykin MD; [facility]~ Signed [facility] Work Phone: 1(355) 905-206001-10-2024 Progress note Author Jeremy Alexander [facility] June 13, 2023 2:49pm Note Date/Time June 13, 2023 2 :26pm [facility] System Medical Records Department [address] [place] [address] Progress Note - Hospitalist 06/13/23 1312 MR#: [id number] Acct: [id number] Name: TRENTON JACKSON Rep #:[id number] : 1970 52 From: Jeremy Ahuja PCP: [facility] atus:ADM IN Location: [facility] Objective Data Objective Data Vital Signs: Vital [...] % (Auto) 68.5, Lymph % (Auto) 20.3, Brule % (Auto) 6.0, Eos % (Auto) 3.9, [...] 79.1 H, Lymph % (Auto) 11.4 L, Brule % (Auto) 4.9, Eos % (Auto) 3.2, [...] Normal S2, no murmur. Decreased pulsation of [employer] and dorsalis artery left more than right. [...] % (Auto) 68.5, Lymph % (Auto) 20.3, Brule % (Auto) 6.0, Eos % (Auto) 3.9, [...] 79.1 H, Lymph % (Auto) 11.4 L, Brule % (Auto) 4.9, Eos % (Auto) 3.2, [...] Sens 17 Charges/Coding Visit Charges Inpatient E&M: 77853 Subs Hosp L2 06/13/23 1449 <Electronically signed by Jeremy Alexander MD> Cosigner Signature (if applicable): CC: ~ Signed [facility] Work Phone: 1(641) 621-706401-10-2024 Discharge summary Author Riccardo Hillman [facility] June 13, 2023 12:46am Note Date/Time June 12, 2023 8: 15pm [facility] Medical Records Department [address] [place] [address] Emergency Department Summary 06/12/23 MR#: [id number] Acct: [id number] Name: TRENTON JACKSON Rep #:[id number] : 1970 52 From: Riccardo Gibson [facility] St atus:REG ER Location: ED HPI [...] a cough but denies any sputum production. [facility] Medical History Acute dyspnea Aftercare following surgery of the circulatory system Alcohol abuse Amputation toe CAD (coronary artery disease), [place] coronary artery CHF (congestive heart failure) Depression [...] % (Auto) 68.5 Lymph % (Auto) 20.3 Brule % (Auto) 6.0 Eos % (Auto) 3.9 [...] sinus rhythm with a rate of 97. CO interval was normal at 178 ms. QRS [...] effusion, Hypoxia Disposition Disposition: Acute Care Hospital [facility] What to do if you have Problems For any increased pain, shortness of breath, bleeding, nausea or vomiting, chestpain, or any unexpected problems, contact your Primary Care Provider. Call [facility] ([phone]) or report to the closest Emergency Room. Call 911 if necessary. 06/13/2345 <Electronically signed by Riccardo Hillman DO> Cosigner Signature (if applicable): CC: [facility] ~ Signed [facility] Work Phone: 1([phone]) 308-139912-04-2023 Discharge summary Author Latricia Aaron [facility] May 07, 2023 12:08pm Note Date/Time May 07, 2023 1 2:02pm [facility] Medical Records Department [address] [place] [address] Discharge Summary 05/07/23 1121 MR#: [id number] Acct: [id number] Name: TRENTON JACKSON Rep #:[id number] : 1970 52 From: Latricia Aaron MD PCP: [facility] St atus:ADM [facility] Providers Date of Admission: 05/03/23 Date of Discharge: 05/07/23 Primary Care Physician: [facility] Consultations 05/03/23 21:00 Consult: Cardiology Routine Consulting [...] is a 52-year-old female who presented to [facility] ED on 05/03/2023 with worsening shortness of [...] Requested for PT OT eval and social services designee to assist with discharge planning 4. Constipation [...] % (Auto) 66.3, Lymph % (Auto) 22.0, Brule % (Auto) 7.3, Eos % (Auto) 3.0, [...] Attending Provider: Latricia Aaron [facility] Providers: Alli Brito; Lei Justin; [...] Qty: 30 0RF Referrals / Follow Up: [facility] [Primary Care Provider] - 05/07/23 3:30 pm Disposition Disposition (needs filled in before D/C Order can be placed): Home, Self Care Charges/Coding Visit Charges Inpatient E&M: 77443 Disch Hosp >30min 05/07/23 1208 <Electronically signed by Latricia Aaron MD> Cosigner Signature (if applicable): CC: Dr. Latricia Aaron MD; [facility]~ Signed [facility] Work Phone: 1(376) 232-237712-04-2023 Consult note Author Josse Garcia [facility] May 07, 2023 11:50am Note Date/Time May 07, 2023 1 1:50am [facility] Medical Records Department [address] [place] [address] Counseling Note - Pharmacy 05/07/23 1149 MR#: [id number] Acct: [id number] Name: TRENTON JACKSON Rep #:[id number] : 1970 52 From: Josse Garcia [facility] St atus:ADM IN Y Location: [place] [address] Pharmacy [facility] Service has performed discharge medication [...] Signature (if applicable): Date CC: ~ Signed [facility] Work Phone: 1(909) 548-205212-03-2023 Progress note Author Brenda Posadas [facility] May 06, 2023 4:01pm Note Date/Time May 06, 2023 8 :07am [facility] Medical Records Department [address] [place] [address] Progress Note - Hospitalist 05/06/23802 MR#: [id number] Acct: [id number] Name: TRENTON JACKSON Rep #:[id number] : 1970 52 From: Brenda Posadas MD PCP: [facility] St atus:ADM IN Location: [place] [id number]- 1 Reason for Visit Reason for Visit: [...] % (Auto) 62.7, Lymph % (Auto) 24.3, Brule % (Auto) 7.5, Eos % (Auto) 4.1, [...] is a 52-year-old female who presented to [facility] ED on 05/03/2023 with worsening shortness of [...] 35 minutes. Charges/Coding Visit Charges Inpatient E&M: 33369 Subs Hosp L2 05/06/23 1601 <Electronically signed by Brenda Posadas MD> Cosigner Signature (if applicable): CC: ~ Signed [facility] Work Phone: 1([phone]) 802-978512-03-2023 Progress note Author Alli Brito [facility] May 06, 2023 10:31am Note Date/Time May 06, 2023 1 0:31am [facility] Medical Records Department [address] [place] [address] Progress Note - Cardiology 05/06/23 1030 MR#: [id number] Acct: [id number] Name: TRENTON JACKSON Rep #:[id number] : 1970 52 From: Alli Brito MD PCP: [facility] atus:ADM IN Location: [place] [address] Subjective Subjective Patient seen and evaluated. Appears [...] % (Auto) 62.7, Lymph % (Auto) 24.3, Brule % (Auto) 7.5, Eos % (Auto) 4.1, [...] % (Auto) 62.7, Lymph % (Auto) 24.3, Brule % (Auto) 7.5, Eos % (Auto) 4.1, [...] of congestive heart failure which is systolic [place] Heart Association class III. It appears that [...] she would be a candidate for a REGISTERED PRIVATE DUTY NURSE-D. (2) History of coronary artery disease: PLAN: [...] Cosigner Signature (if applicable): CC: ~ Signed [facility] Work Phone: 1([phone]) 141-933312-02-2023 Progress note Author Brenda Posadas [facility] May 05, 2023 3:29pm Note Date/Time May 05, 2023 9 :59am [facility] Medical Records Department [address] [place] [address] Progress Note - Hospitalist 05/05/23 0958 MR#: [id number] Acct: [id number] Name: TRENTON JACKSON Rep #:[id number] : 1970 52 From: Brenda Posadas MD PCP: [facility] atus:ADM IN Location: [place] [address] Reason for Visit Reason for Visit: Diagnoses [...] % (Auto) 61.2, Lymph % (Auto) 23.6, Brule % (Auto) 7.4, Eos % (Auto) 6.5 [...] insufficiency. Ordering Physician: Lei Justin Referring Physician: [facility] Performed By: Jyoti Pandey, EDMOND, RVT Rhythm [...] is a 52-year-old female who presented to [facility] ED on 05/03/2023 with worsening shortness of [...] 35 minutes. Charges/Coding Visit Charges Inpatient E&M: 69425 Subs Hosp L2 05/05/23 9670 <Electronically signed by Brenda Posadas MD> Cosigner Signature (if applicable): CC: ~ Signed [facility] Work Phone: 1(350) 465-121712-02-2023 Progress note Author Alli Brito [facility] May 05, 2023 11:03am Note Date/Time May 05, 2023 1 1:03am [facility] Medical Records Department [address] [place] [address] Progress Note - Cardiology 05/05/23 1102 MR#: [id number] Acct: [id number] Name: TRENTON JACKSON Rep #:[id number] : 1970 52 From: Alli Brito MD PCP: [facility] atus:ADM IN Location: [place] [address] Subjective Subjective Patient seen and evaluated. Appears [...] % (Auto) 61.2, Lymph % (Auto) 23.6, Brule % (Auto) 7.4, Eos % (Auto) 6.5 [...] % (Auto) 61.2, Lymph % (Auto) 23.6, Brule % (Auto) 7.4, Eos % (Auto) 6.5 [...] insufficiency. Ordering Physician: Lei Justin Referring Physician: [facility] Performed By: Jyoti Pandey, EDMOND, RVT Physical [...] of congestive heart failure which is systolic [place] Heart Association class III. It appears that [...] she would be a candidate for a REGISTERED PRIVATE DUTY NURSE-D. (2) History of coronary artery disease: PLAN: [...] Cosigner Signature (if applicable): CC: ~ Signed [facility] Work Phone: 1(645) 896-263512-01-2023 Progress note Author Brenda Posadas [facility] May 04, 2023 5:51pm Note Date/Time May 04, 2023 8 :34am [facility] Medical Records Department [address] [place] [address] Progress Note - Hospitalist 05/04/23825 MR#: [id number] Acct: [id number] Name: TRENTON JACKSON Rep #:[id number] : 1970 52 From: Brenda Posadas MD PCP: [facility] atus:ADM IN Location: [place] [address] Reason for Visit Reason for Visit: Diagnoses [...] 77.6 H, Lymph % (Auto) 13.6 L, Brule % (Auto) 3.9, Eos % (Auto) 3.4, [...] is a 52-year-old female who presented to [facility] ED on 05/03/2023 with worsening shortness of [...] 35 minutes. Charges/Coding Visit Charges Inpatient E&M: 85029 Subs Hosp L2 05/04/23 1751 <Electronically signed by Brenda Posadas MD> Cosigner Signature (if applicable): CC: ~ Signed [facility] Work Phone: 1(952) 805-522312-01-2023 Consult note Author Alli Brito [facility] May 04, 2023 7:21am Note Date/Time May 04, 2023 6 :53am [facility] Medical Records Department [address] [place] [address] Consultation - Cardiology 05/04/23 0651 MR#: [id number] Acct: [id number] Name: TRENTON JACKSON Rep #:[id number] : 1970 52 From: Alli Brito MD [facility]CP: [facility] atus:ADM IN Location: [place] [address] Assessment & Plan Assessment/Plan (1) CHF (congestive heart failure): PLAN: She does have evidence of congestive heart failure which is systolic [place] Heart Association class III. It appears that [...] she would be a candidate for a REGISTERED PRIVATE DUTY NURSE-D. (2) History of coronary artery disease: PLAN: [...] of Consult: 05/04/23 HPI Narrative HPI Narrative: TRENOTN JACKSON, is a 52 F who presents with a history of premature coronary artery disease dating back to at least 2013. She does have a history of hypertension hyperlipidemia coronary artery disease involving the proximal to mid section of the LAD which was apparently severely diseased. She had undergone cardiac catheterization which had demonstrated this and had been evaluated in [place] and had a stress test which demonstrated [...] [facility] of [facility] coughing [...] shewas admitted for further evaluation and management. [facility] Medical History (Updated 05/03/23 @ 17:53 by Paula Clayton) Acute dyspnea Aftercare following surgery of the circulatory system Alcohol abuse Amputation toe CAD (coronary artery disease), [place] coronary artery CHF (congestive heart failure) Depression [...] 77.6 H, Lymph % (Auto) 13.6 L, Brule % (Auto) 3.9, Eos % (Auto) 3.4, [...] (Auto)77.6 H, Lymph % (Auto) 13.6 L, Brule % (Auto) 3.9, Eos % (Auto) 3.4, [...] Lei Justin DO; Dr. Alli Brito MD; [facility]~ Signed [facility] Work Phone: 1([phone]) 558-767811-30-2023 History and physical note Author Lei Justin [facility] May 03, 2023 9:30pm Note Date/Time May 03, 2023 4:26pm [facility] Medical Records Department [address] [place] [address] H&P Exam - Hospitalist 05/03/23 1624 MR#: [id number] Acct: [id number] Name: TRENTON JACKSON Rep #:[id number] : 1970 52 From: Lei swanson DO PCP: [facility] St atus:ADM IN Location: [place] [address] HPI - General General Date of Admission: 05/03/23 Date of Service: 05/03/23 Chief Complaint: Worsening shortness of breath HPI Narrative TRENTON JACKSON, is a 52 F who presented to [facility] ED on 05/03/2023 with 3 to 4-day [...] discomfort. No other acute concerns this time. [facility] Medical History (Updated 05/03/23 @ 17:53 by Paula Clayton) Acute dyspnea Aftercare following surgery of the circulatory system Alcohol abuse Amputation toe CAD (coronary artery disease), [place] coronary artery CHF (congestive heart failure) Depression [...] 77.6 H, Lymph % (Auto) 13.6 L, Brule % (Auto) 3.9, Eos % (Auto) 3.4, [...] is a 52-year-old female who presented to [facility] ED on 05/03/2023 with worsening shortness of [...] 55 minutes. Charges/Coding Visit Charges Inpatient E&M: 26271 Init Hosp L2 05/03/232129 <Electronically signed by Lei Justin DO> Cosigner Signature (if applicable): CC: Dr. Lei Justin, ; [facility]~ Signed [facility] Work Phone: 1(222) 553-190311-30-2023 Discharge summary Author Ananda Coyle [facility] May 03, 2023 3:42pm Note Date/Time May 03, 2023 2:03pm [facility] Medical Records Department [address] [place] [address] Emergency Department Summary 05/03/23 MR#: [id number] Acct: [id number] Name: TRENTON JACKSON Rep #:[id number] : 1970 52 From: Ananda Coyle MD PCP: [facility] St atus:REG ER Location: ED HPI [...] abuse Amputation toe CAD (coronary artery disease), [place] coronary artery CHF (congestive heart failure) Depression [...] CHF or pleural effusions. Differential would alsoinclude TN, anemia etc. Cardiac workup is underway. Repeat [...] 77.6 H Lymph % (Auto) 13.6 L Brule % (Auto) 3.9 Eos % (Auto) 3.4 [...] rate of 97. No acute signs of TN or ischemia. Interventricular conduction delay. Discharge Plan [...] DAILY Qty: 90 3RF Primary Care Provider: [facility] Nathaly Finney Referrals: [facility] Nathaly Finney [Primary Care Provider] - Disposition Disposition: Acute Care Hospital [facility] What to do if you have Problems For any increased pain, shortness of breath, bleeding, nausea or vomiting, chestpain, or any unexpected problems, contact your Primary Care Provider. Call [facility] ([phone]) or report to the closest Emergency Room. Call 911 if necessary. 05/03/23 1542 <Electronically signed by Ananda Coyle MD> Cosigner Signature (if applicable): CC: [facility] ~ Signed [facility] Work Phone: 1(864) 465-349411-30-2023 Discharge summary Author Ananda Coyle [facility] May 03, 2023 3:42pm Note Date/Time May 03, 2023 2:03pm [facility] Medical Records Department [address] [place] [address] Emergency Department Summary 05/03/23 MR#: [id number] Acct: [id number] Name: TRENTON JACKSON Rep #:[id number] : 1970 52 From: Ananda Coyle MD PCP: [facility] St atus:REG ER Location: ED HPI [...] abuse Amputation toe CAD (coronary artery disease), [place] coronary artery CHF (congestive heart failure) Depression [...] CHF or pleural effusions. Differential would alsoinclude TN, anemia etc. Cardiac workup is underway. Repeat [...] 77.6 H Lymph % (Auto) 13.6 L Brule % (Auto) 3.9 Eos % (Auto) 3.4 [...] rate of 97. No acute signs of TN or ischemia. Interventricular conduction delay. Discharge Plan [...] DAILY Qty: 90 3RF Primary Care Provider: [facility] Nathaly Finney Referrals: [facility] Chaz,Nathaly Lainez [Primary Care Provider] - Disposition Disposition: Acute Care Hospital [facility] What to do if you have Problems For any increased pain, shortness of breath, bleeding, nausea or vomiting, chestpain, or any unexpected problems, contact your Primary Care Provider. Call [facility] ([phone]) or report to the closest Emergency Room. Call 911 if necessary. 05/03/23 1542 <Electronically signed by Ananda Coyle MD> Cosigner Signature (if applicable): CC: [facility] ~ Signed [facility] Work Phone: 1([phone]) 894-983609-02-2023 Discharge summary Author Sabina Rosenberg [facility] February 03, 2023 4:02pm Note Date/Time February 03, 2023 3:30pm [facility] Medical Records Department [address] [place] [address] Instructions for Home/Discharge Instructions 02/03/23 1530 MR#: [id number] Acct: [id number] Name: TRENTON JACKSON Rep #:[id number] : 1970 52 From: Sabina Rosenberg DO [facility] St atus:ADM REHAN Discharge Instructions Diet Discharge Diet: 1800 Calorie Control Diet Activity Weight Bearing Status: Full weight bearing Follow Up Care Test Results: Test results from this visit will be discussed in further detail at your follow- up appointment, if applicable. Discharge Plan Admission Admit Date/Time: 02/02/23 16:24 Primary Reason for Your Visit: CHF Attending Provider: Sabina Rosenberg Primary Care Provider: [facility] Nathaly Finney Consulting Providers: Brandon Adames Discharge [...] Qty: 30 0RF Referrals / Follow Up: [facility],Nathaly Lainez [Primary Care Provider] - Within 2 Weeks Disposition Disposition (needs filled in before D/C Order can be placed): Home, Self Care 02/03/23 1602<Electronically signed by Sabina Rosenberg DO>Sabina Rosenberg DO CC: Dr. Brandon Adames MD; [facility] ~ Signed [facility] Work Phone: 1([phone]) 662-119009-01-2023 History and physical note Author Brandon Adames [facility] February 02, 2023 5:56pm Note Date/Time February 02, 2023 5:08pm [facility] Medical Records Department [address] [place] [address] H&P Exam - Hospitalist 02/02/23 1627 MR#: [id number] Acct: [id number] Name: TRENTON JACKSON Rep #:[id number] : 1970 52 From: Brandon talavera MD PCP: [facility] atus:ADM REHAN Location: [place] [address] HPI - General General Date of Admission: [...] has been unable to follow-up with a press box custodian since that time but states that she has been taking her medications appropriately and watching her diet. She comes in today because she is also been having some shortness of breath, she did drop heroxygen down to 88% and is managing on 2 L nasal cannula. She did receive a doseof Lasix in the ER. [facility] Medical History Acute dyspnea Aftercare following surgery of the circulatory system Alcohol abuse CAD (coronary artery disease), [place] coronary artery CHF (congestive heart failure) Depression [...] 70.1 H, Lymph % (Auto) 18.4 L, Brule % (Auto) 6.1, Eos % (Auto) 3.9, [...] with colleagues Charges/Coding Visit Charges Inpatient E&M: 41714 Init Hosp L3 02/02/23 1756 <Electronically signed by Brandon Adames MD> Cosigner Signature (if applicable): CC: Dr. Brandon Adames MD; [facility]~ Signed [facility] Work Phone: 1(980) 736-771709-01-2023 History and physical note Author Brandon Adames [facility] February 02, 2023 5:56pm Note Date/Time February 02, 2023 5:08pm [facility] Medical Records Department [address] [place] [address] H&P Exam - Hospitalist 02/02/23 1627 MR#: [id number] Acct: [id number] Name: TRENTON JACKSON Rep #:[id number] : 1970 52 From: Brandon talavera MD [facility] St atus:ADM REHAN Location: [place] [id number] 1 HPI - General General Date of [...] has been unable to follow-up with a press box custodian since that time but states that she has been taking her medications appropriately and watching her diet. She comes in today because she is also been having some shortness of breath, she did drop heroxygen down to 88% and is managing on 2 L nasal cannula. She did receive a doseof Lasix in the ER. [facility] Medical History Acute dyspnea Aftercare following surgery of the circulatory system Alcohol abuse CAD (coronary artery disease), [place] coronary artery CHF (congestive heart failure) Depression [...] 70.1 H, Lymph % (Auto) 18.4 L, Brule % (Auto) 6.1, Eos % (Auto) 3.9, [...] with colleagues Charges/Coding Visit Charges Inpatient E&M: 64976 Init Hosp L3 02/02/23 1756 <Electronically signed by Brandon Adames MD> Cosigner Signature (if applicable): CC: Dr. Brandon Adames MD; [facility]~ Signed [facility] Work Phone: 1(561) 483-246709-01-2023 Discharge summary Author Zack Card [facility] February 02, 2023 3:56pm Note Date/Time February 02, 2023 12:13pm [facility] Medical Records Department [address] [place] [address] Emergency Department Summary 02/02/23 MR#: [id number] Acct: [id number] Name: TRENTON JACKSON Rep #:[id number] : 1970 52 From: Zack Han PCP: [facility] St atus:REG ER Location: ED HPI [...] Factors: Positive for Prior DVT or PE [facility] Medical History Acute dyspnea Aftercare following surgery of the circulatory system Alcohol abuse CAD (coronary artery disease), [place] coronary artery CHF (congestive heart failure) Depression [...] clinician: Hospitalist This note was generated with [employer] software. It may contain incorrectwords, spelling, and [...] 70.1 H Lymph % (Auto) 18.4 L Brule % (Auto) 6.1 Eos % (Auto) 3.9 [...] pleural effusion Disposition Disposition: Acute Care Hospital [facility] What to do if you have Problems For any increased pain, shortness of breath, bleeding, nausea or vomiting, chestpain, or any unexpected problems, contact your Primary Care Provider. Call [facility] ([phone]) or report to the closest Emergency Room. Call 911 if necessary. 02/02/23 1556 <Electronically signed by Zack Han> Cosigner Signature (if applicable): CC: [facility] ~ Signed [facility] Work Phone: 1(174) 406-182508-02-2023 Consult note Author Josse Garcia [facility] January 03, 2023 11:29am Note Date/Time January 03, 2023 11: 09am [facility] Medical Records Department [address] [place] [address] Counseling Note - Pharmacy 01/03/23 1106 MR#: [id number] Acct: [id number] Name: TRENTON JACKSON Rep #:[id number] : 1970 52 From: Josse Garcia PCP: [facility] St atus:ADM IN Y [facility] Service has performed discharge medication [...] Josse Garcia on 01/03/23 at 1129 The catalytic case operator Paula is discussing with patient if they have adequate pen needles at home for their long-acting insulin, and will discuss with MD if more are needed. 01/03/23 1129 <Electronically signed by Josse osborne> Date _ Josse Garcia Signature (if applicable): _ cc: ~* Signed [facility] Work Phone: 1(792) 130-730408-02-2023 Discharge summary Author Sabina Rosenberg [facility] January 03, 2023 10:26am Note Date/Time January 03, 2023 10: 18am [facility] Medical Records Department [address] [address] [address] Instructions for Home/Discharge Instructions 01/03/23 1018 MR#: [id number] Acct: [id number] Name: ROSEMARYLJTRENTON DEON Rep #:[id number] : 1970 52 From: Sabina Rosenberg DO PCP: [facility] St atus:ADM IN Discharge Instructions Diet Discharge [...] Attending Provider: Sabina Rosenberg Primary Care Provider: [facility] Discharge Orders/Prescriptions Prescriptions: New lisinopril 20 mg [...] Active Staff] - 02/28/23 11:00 am [facility] [Primary Care Provider] - Within 2 Weeks Disposition Disposition (needs filled in before D/C Order can be placed): Home, Self Care 01/03/23 1026<Electronically signed by Sabina Rosenberg DO>Sabina Rosenberg DO CC: [facility] ~ Signed [facility] Work Phone: 1(407) 132-406508-01-2023 Progress note Author Sabina [facility]sleep[facility] center[facility] January 02, 2023 5:29pm Note Date/Time January 02, 2023 5:3 0pm [facility] Medical Records Department [address] [place] [address] Progress Note - Hospitalist 01/02/23 1726 MR#: [id number] Acct: [id number] Name: TRENTON JACKSON Rep #:[id number] : 1970 52 From: Sabina Rosenberg DO PCP: [facility] atus:ADM IN Location: [place] [id number]- 1 Reason for Visit Reason for Visit: [...] that I would get an appointment at [facility] for the patient to follow-up with [...] with her physicians as directed, I contacted [facility] and they will make an appointment for the patient to follow-up for ongoing care. #3 cardiomyopathy, probably ischemic in nature-patient will need close follow- upwith a press box custodian after her discharge from the hospital, I [...] 50 minutes Charges/Coding Visit Charges Inpatient E&M: 69787 Subs Hosp L3 01/02/23 4291 <Electronically signed by Sabina Rosenberg DO> Cosigner Signature (if applicable): CC: ~ Signed [facility] Work Phone: 1(894) 721-420007-31-2023 History and physical note Author Sabina Rosenberg [facility] January 01, 2023 9:28pm Note Date/Time January 01, 2023 9:28 pm [facility] Medical Records Department [address] [place] [address] H&P Exam - Hospitalist 01/01/232112 MR#: [id number] Acct: [id number] Name: TRENTON JACKSON Rep #:[id number] : 1970 52 From: Sabina Rosenberg DO PCP: [facility] atus:ADM IN Location: [facility] APY288- 1 HPI - General General Date of Admission: 01/01/23 Date of Service: 01/01/23 Chief Complaint: Shortness of breath, cough, chest pain on coughing and deep breathing HPI Narrative TRENTON JACKSON, is a 52 F who presents to the emergency room at [facility] with complaints of cough productive of clear [...] [facility] [...] she feels causes her to be unwell. [facility] Medical History (Updated 01/01/23 @ 17:18 by Elisabeth Elizalde) Alcohol abuse CAD (coronary artery disease), united [place] coronary artery CHF (congestive heart failure) Congestive [...] 75.1 H, Lymph % (Auto) 16.1 L, Brule % (Auto) 5.0, Eos % (Auto) 2.7, [...] nature-patient will need close follow- upwith a press box custodian after her discharge from the hospital, I [...] 75 minutes Charges/Coding Visit Charges Inpatient E&M: 21936 Init Hosp L3 01/01/232127 <Electronically signed by Sabian Rosenberg DO> Cosigner Signature (if applicable): CC: Dr. Sabina Rosenberg, ; [facility]~ Signed [facility] Work Phone: [phone]) 364-769807-31-2023 Discharge summary Author Yvette Hanley [facility] January 01, 2023 4:35pm Note Date/Time January 01, 2023 1:15 pm [facility] Medical Records Department [address] [place] [address] Emergency Department Summary 01/01/23 MR#: [id number] Acct: [id number] Name: TRENTON JACKSON Rep #:[id number] : 1970 52 From: Yvette Hanley DO [facility] atus:REG ER Location: ED HPI [...] to 3 days and has been taking [place] cold relief. Patient denies nausea or vomiting. [...] from the knee down to the foot. [facility] Medical History CAD (coronary artery disease), united [place] coronary artery CHF (congestive heart failure) GERD (gastroesophageal reflux disease) HTN (hypertension) Hx of fracture of humerus Hyperlipidemia Toe amputee Home Medications alendronate 70 mg tablet 70 mg PO GLIIF BONE E Ink 07/25/22 [History Last Taken Unknown] cholecalciferol (vitamin [...] established on arrival. Patient placed on a youth nutritional monitor. EKG obtained on arrival showed sinus [...] 75.1 H Lymph % (Auto) 16.1 L Brule % (Auto) 5.0 Eos % (Auto) 2.7 [...] Nausea) Qty: 10 0RF Primary Care Provider: [facility] Nathaly Finney Referrals: [facility],Nathaly Lainez [Primary Care Provider] - Disposition Disposition: Acute Care Hospital [facility] What to do if you have Problems For any increased pain, shortness of breath, bleeding, nausea or vomiting, chestpain, or any unexpected problems, contact your Primary Care Provider. Call [facility] ([phone]) or report to the closest Emergency Room. Call 911 if necessary. 01/01/23 1635 <Electronically signed by Yvette Hanley DO> Cosigner Signature (if applicable): CC: [facility] ~ Signed [facility] Work Phone: [phone]) [phone] Discharge summary Author Yvette [facility] January 01, 2023 4:35pm Note Date/Time January 01, 2023 1:15 pm [facility] Medical Records Department [address] [place] [address] Emergency Department Summary 01/01/23 MR#: [id number] Acct: [id number] Name: TRENTON JACKSON Rep #:[id number] : 1970 52 From: Yvette Hanley DO PCP: [facility] St atus:REG ER Location: ED HPI [...] to 3 days and has been taking [place] cold relief. Patient denies nausea or vomiting. [...] from the knee down to the foot. [facility] Medical History CAD (coronary artery disease), [place] coronary artery CHF (congestive heart failure) GERD (gastroesophageal reflux disease) HTN (hypertension) Hx of fracture of humerus Hyperlipidemia Toe amputee Home Medications alendronate 70 mg tablet 70 mg PO BONE [facility] 07/25/22 [History Last Taken Unknown] cholecalciferol (vitamin [...] established on arrival. Patient placed on a youth nutritional monitor. EKG obtained on arrival showed sinus [...] 75.1 H Lymph % (Auto) 16.1 L Brule % (Auto) 5.0 Eos % (Auto) 2.7 [...] Nausea) Qty: 10 0RF Primary Care Provider: [facility] Nathaly Finney [facility] - Disposition Disposition: Acute Care Hospital [facility] What to do if you have Problems For any increased pain, shortness of breath, bleeding, nausea or vomiting, chestpain, or any unexpected problems, contact your Primary Care Provider. Call [facility] ([phone]) or report to the closest Emergency Room. Call 911 if necessary. 01/01/23 7896 <Electronically signed by Yvette Hanley DO> Cosigner Signature (if applicable): CC: [facility] ~ Signed [facility] Work Phone: [phone]) 366-373906-26-2023 Hospital Discharge instructions Additional Instructions Plenty of fluids such as water, prune juice and fruits, vegetables and fiber to help with constipation. GoLytely: Drink 6 to 8 ounce is every hour as needed and to have a bowel movement.[facility] Work Phone: [phone] 283-988504-30-2023 Hospital Discharge instructions Additional Instructions Plenty of fluids such as water, prune juice and fruits, vegetables and fiber to help with constipation. GoLytely: Drink 6 to 8 ounce is every hour as needed and to have a bowel movement.[facility] Work Phone: [phone] Card [facility] September 18, 2022 6:48pm Note Date/Time September 18, 2022 2:3 5pm [facility] Medical Records Department [address] [place] [address] Emergency Department Summary 09/18/22 MR#: [id number] Acct: [id number] Name: TRENTON JACKSON Rep #:[id number] : 1970 52 From: Zack Han PCP: [facility] St atus:REG ER Location: ED HPI [...] PFSH Medical History CAD (coronary artery disease), [place] coronary artery CHF (congestive heart failure) GERD [...] 74.8 H Lymph % (Auto) 18.4 L Brule % (Auto) 5.3 Eos % (Auto) 0.7 [...] MCHC RDW Std Deviation RDW Coeff of Spnecer Plt Count MPV Immature Gran % (Auto) Neut % (Auto) Lymph % (Auto) Brule % (Auto) Eos % (Auto) Baso % [...] EDT Reading Location ID and State: / [place] , Service support , Discharge Plan Triage [...] Nausea) Qty: 10 0RF [facility] - 3-5 Days Activity Restrictions/Additional Instructions: Hip x-ray negative. Labs are stable. Follow-up with your doctor. Disposition Disposition: Home, Self Care What to do if you have Problems For any increased pain, shortness of breath, bleeding, nausea or vomiting, chestpain, or any unexpected problems, contact your Primary Care Provider. Call Doctors Registry ([phone]) or report to the closest Emergency Room. Call 911 if necessary. 04/1847 <Electronically signed by Zack Han> Cosigner Signature (if applicable): CC: [facility] ~ Signed [facility] Work Phone: [phone] 446-397304-01-[address] Forde [facility] September 02, 2022 11:17am Note Date/Time September 02, 2022 11:1 7am [facility] Medical Records Department [address] [place] [address] Discharge Summary 09/02/22 1115 MR#: [id number] Acct: [id number] Name: TRENTON JACKSON Rep #:[id number] : 1970 52 From: Jeison Forde DPM PCP: [facility] atus:ADM IN Location: [address] Providers Date of Admission: 08/30/22 Primary Care Physician: [facility] Consultations 08/30/22 17:15 Consult: Hospitalist Routine Consulting Provider: Sabina Rosenberg Reason for Consult: medical management/pre operative clearance EMERGENT Consult: No MD Notified: Yes Date Notified: 08/30/22 Time Notified: 17:55 Method of Notification: Verbal Consult: Onc/Wound/belt sander Routine Comment: Reason For Visit: GANGRENE RIGH 2ND TOE Diagnosis Discharge Diagnosis (1) Cellulitis of right foot: Status: Acute Code(s): L03.115 - Cellulitis of right lower limb (2) Diabetes mellitus, type 2: Status: Chronic Code(s): E11.9 - Type 2 diabetes mellitus without complications (3) Atherosclerosis of lower extremity: Status: Acute Code(s): I70.209 - Unspecified atherosclerosis of united [place] arteries of extremities, unspecified extremity (4) Dry [...] 70 mg tablet 70 mg PO BONE [facility] 07/25/22 cholecalciferol (vitamin D3) 25 mcg (1,000 [...] Attending Provider: Jeison Forde Primary Care Provider: [facility] Nathaly Finney Consulting Providers: Sabina Rosenberg Instructions [...] Cosigner Signature (if applicable): CC: ALEK Forde; [facility]~ Signed [facility] Work Phone: 1([phone]) 357-383104-01-[address] Rosenberg [facility] September 02, 2022 10:21am Note Date/Time September 02, 2022 10:2 1am [facility] Medical Records Department [address] [place] [address] Progress Note - Hospitalist 09/02/22 1018 MR#: [id number] Acct: [id number] Name: TRENTON JACKSON Rep #:[id number] : 1970 52 From: Sabina Rosenberg DO PCP: [facility] St atus:ADM IN Location: [facility] TO631-1 Reason for Visit Reason for Visit: Diagnoses Type 2 diabetes mellitus without complications (08/30/22) Unspecified atherosclerosis of united [place] arteries of extremities, unspecified extremity (08/30/22) Peripheral [...] 35 minutes Charges/Coding Visit Charges Inpatient E&M: 02391 Subs Hosp L2 04/01/23 1021 <Electronically signed by Sabina Rosenberg DO> Cosigner Signature (if applicable): CC: ~ Signed [facility] Work Phone: [phone] 890-964304-01-[address] Forde [facility] September 02, 2022 10:20am Note Date/Time September 02, 2022 10:2 0am [facility] System Medical Records Department [address] [place] [address] Progress Note 09/02/22 1018 MR#: [id number] Acct: [id number] Name: TRENTON JACKSON Rep #:[id number] : 1970 52 From: Jeison Forde DPM PCP: [facility] atus:ADM IN Location: [address] Subjective Subjective Patient denies constitutional symptoms. [...] Cosigner Signature (if applicable): CC: ~ Signed [facility] Work Phone: 1(441) 394-385604-01-[address] Rosenberg [facility] September 02, 2022 10:18am Note Date/Time September 02, 2022 9:45 am [facility] System Medical Records Department [address] [place] [address] Instructions for Home/Discharge Instructions 09/02/22 0941 MR#: [id number] Acct: [id number] Name: TRENTON JACKSON Rep #:[id number] : 1970 52 From: Sabina Rosenberg DO PCP: [facility] atus:ADM IN Discharge Instructions Diet Discharge Diet: [...] Attending Provider: Jeison Forde Primary Care Provider: [facility] Nathaly Finney Consulting Providers: Sabina Rosenberg Discharge [...] Rosenberg DO CC: Dr. Sabina Rosenberg DO; [facility] ~ Signed [facility] Work Phone: [phone] Rosenberg [facility] September 01, 2022 6:58pm Note Date/Time September 01, 2022 3:2 3pm [facility] System Medical Records Department [address] [place] [address] Progress Note - Hospitalist 09/01/22 1518 MR#: [id number] Acct: [id number] Name: TRENTON JACKSON Rep #:[id number] : 1970 52 From: Sabina Rosenberg DO PCP: [facility] St atus:ADM IN Location: SC3 FM182-4 Reason for Visit Reason for Visit: Diagnoses Type 2 diabetes mellitus without complications (08/30/22) Unspecified atherosclerosis of united [place] arteries of extremities, unspecified extremity (08/30/22) Peripheral [...] 35 minutes Charges/Coding Visit Charges Inpatient E&M: 67412 Subs Hosp L2 09/01/22 1858 <Electronically signed by Sabina Rosenberg DO> Cosigner Signature (if applicable): CC: ~ Signed [facility] Work Phone: [phone]) 994-819503-31-[address] Forde [facility] September 01, 2022 12:02pm Note Date/Time September 01, 2022 12: 02pm [facility] Medical Records Department [address] [place] [address] Progress Note 09/01/22 1200 MR#: [id number] Acct: [id number] Name: TRENTON JACKSON Rep #:[id number] : 1970 52 From: Jeison Forde DPM PCP: [facility] atus:ADM IN Location: [address] Subjective Subjective 52-year-old female 1 day [...] Cosigner Signature (if applicable): CC: ~ Signed [facility] Work Phone: 1([phone] 790-976403-30-[address] Rosenberg [facility] August 31, 2022 5:17pm Note Date/Time August 31, 2022 4:5 9pm [facility] System Medical Records Department [address] [place] [address] Progress Note - Hospitalist 08/31/22 1658 MR#: [id number] Acct: [id number] Name: TRENTON JACKSON Rep #:[id number] : 1970 52 From: Sabina Rosenberg DO PCP: [facility] atus:ADM IN Location: [place] [address] Reason for Visit Reason for Visit: Diagnoses [...] an outpatient, I called her primarycare office ([facility]) and talk to Lory who is [...] % (Auto) 64.6, Lymph % (Auto) 26.6, Brule % (Auto) 6.5, Eos % (Auto) 1.3, [...] 35 minutes Charges/Coding Visit Charges Inpatient E&M: 50654 Subs Hosp L2 08/31/22 6578 <Electronically signed by Sabina Rosenberg DO> Cosigner Signature (if applicable): CC: ~ Signed [facility] Work Phone: 1(301) 129-153103-30-2023 Procedure [facility] 08-30-[address] Rosenberg [facility] August 30, 2022 8:00pm Note Date/Time August 30, 2022 7:5 0pm [facility] Medical Records Department [address] [place] [address] Progress Note - Hospitalist 08/30/221943 MR#: [id number] Acct: [id number] Name: TRENTON JACKSON Rep #:[id number] : 1970 52 From: Sabina Rosenberg DO PCP: [facility] atus:ADM [facility] Reason for Visit Reason for Visit: Diagnoses Peripheral vascular disease, unspecified (08/30/22) Cellulitis of right lower limb (08/30/22) Pain in right foot (08/30/22) Subjective Subjective Patient was seen and examined today at request of podiatry, she is a 25-ydsv[age]uz[age]yr female came to the ER today with complaints of pain and dry gangrene to the distal area of her right second toe. Patient's chronic medical problems include type 2 diabetes, peripheral vascular disease, essential hypertension, hyperlipidemia, GERD, and a history of congestive heart failure. Patient does not follow with a press box custodian, she is being seen by her PCP. [...] 77.4 H, Lymph % (Auto) 15.4 L, Brule % (Auto) 5.9, Eos % (Auto) 0.5, [...] 50 minutes Charges/Coding Visit Charges Inpatient E&M: 84599 [facility] Hosp 08/30/221999 <Electronically signed by Sabina Rosenberg DO> Cosigner Signature (if applicable): CC: ~ Signed [facility] Work Phone: [phone]) 501-833103-29-2023 History and physical note Author Dr. Forde [facility] August 30, 2022 4:09pm Note Date/Time August 30, 2022 4:0 9pm [facility] Medical Records Department [address] [place] [address] History & Physical Exam 08/30/22 1600 MR#: [id number] Acct: [id number] Name: TRENTON JACKSON Rep #:[id number] : 1970 52 From: Jeison Forde DPM PCP: [facility] atus:REG ER Location: ED HPI - General [...] foot pain. Patient has no other complaints. [facility] Medical History CAD (coronary artery disease), [place] coronary artery CHF (congestive heart failure) GERD [...] 77.4 H, Lymph % (Auto) 15.4 L, Brule % (Auto) 5.9, Eos % (Auto) 0.5, [...] Cosigner Signature (if applicable): CC: ALEK Forde; [facility]~ Signed [facility] Work Phone: [phone]) [phone] History and physical note Author Dr. Forde [facility] August 30, 2022 4:09pm Note Date/Time August 30, 2022 4:0 9pm [facility] Medical Records Department [address] [place] [address] History & Physical Exam 08/30/22 1600 MR#: [id number] Acct: [id number] Name: TRENTON JACKSON Rep #:[id number] : 1970 52 From: Jeison Forde DPM PCP: [facility] St atus:REG ER Location: ED HPI - [...] foot pain. Patient has no other complaints. [facility] Medical History CAD (coronary artery disease), [place] coronary artery CHF (congestive heart failure) GERD [...] 77.4 H, Lymph % (Auto) 15.4 L, Brule % (Auto) 5.9, Eos % (Auto) 0.5, [...] unspecified: (3) Cellulitis of right foot: 08/30/22 1606 <Electronically signed by Jeison Forde DPM> Cosigner Signature (if applicable): CC: ALEK Fored; [facility]~ Signed [facility] Work Phone: [phone]) [phone] Rawls [facility] August 30, 2022 4:06pm Note Date/Time August 30, 2022 2:0 7pm [facility] Medical Records Department [address] [place] [address] Emergency Department Summary 08/30/22 MR#: [id number] Acct: [id number] Name: TRENTON JACKSON Rep #:[id number] : 1970 52 From: Jeremiah Rawls MD PCP: [facility] St atus:REG ER Location: ED HPI [...] other symptoms. Chief Complaint: [facility] Medical History CAD (coronary artery disease), united [place] coronary artery CHF (congestive heart failure) GERD [...] 77.4 H Lymph % (Auto) 15.4 L Brule % (Auto) 5.9 Eos % (Auto) 0.5 [...] (Auto) Neut % (Auto) Lymph % (Auto) Brule % (Auto) Eos % (Auto) Baso % [...] EDT , Management Discussion w/another healthcare provider: Poker Supervisor (Dr. Riccardo Ng with vascular surgery, Dr. [...] TID Qty: 30 0RF [facility]: [facility] [[facility] Provider] - What to do if you have Problems For any increased pain, shortness of breath, bleeding, nausea or vomiting, chestpain, or any unexpected problems, contact your Primary Care Provider. Call [facility] ([phone]) or report to the closest Emergency Room. Call 911 if necessary. 08/30/22 1557 <Electronically signed by Jeremiah Rawls MD> Cosigner Signature (if applicable): CC: [facility] ~ Signed ADDENDUM by Dr. Jeremiah Rawls MD on 08/30/22 at 1606 EKG was obtained for presurgical testing by Dr. Forde. I interpreted the EKG as sinus tachycardia at 118 bpm without ectopy or acute ST changes. No STEMI. 08/30/22 1606<Electronically signed by Jeremiah Rawls MD> Cosigner Signature (if applicable): cc: [facility] ~* Signed [facility] Work Phone: [phone]) [phone] Black [facility] August 14, 2022 4:44pm Note Date/Time August 14, 2022 2:3 8pm [facility] Medical Records Department [address] [place] [address] Emergency Department Summary 08/14/22 MR#: [id number] Acct: [id number] Name: TRENTON JACKSON Rep #:[id number] : 1970 51 From: Roberto Black MD PCP: [facility] atus:REG ER Location: ED HPI History of [...] stopping this with poor vascular flow distally. [facility] Medical History CAD (coronary artery disease), [place] coronary artery CHF (congestive heart failure) GERD [...] 78.3 H Lymph % (Auto) 13.9 L Brule % (Auto) 5.8 Eos % (Auto) 0.8 [...] 81 mg PO DAILY [facility] Referrals: Riccardo Ng MD [Med Staff - Active Staff] - Keep Diandra appointment [facility]athaly Lainez [Primary Care Provider] - Disposition Disposition: Home, Self Care What to do if you have Problems For any increased pain, shortness of breath, bleeding, nausea or vomiting, chestpain, or any unexpected problems, contact your Primary Care Provider. Call [facility] ([phone]) or report to the closest Emergency Room. Call 911 if necessary. 08/14/22 1644 <Electronically signed by Roberto Black MD> Cosigner Signature (if applicable): CC: [facility] ~ Signed [facility] Work Phone: [phone]) [phone] Procedure [facility] 07-25-[address] Mcneal [facility] July 25, 2022 11:38am Note Date/Time July 25, 2022 9:21am [facility] Medical Records Department [address] [place] [address] Emergency Department Summary 07/25/22 MR#: [id number] Acct: [id number] Name: TRENTON JACKSON Rep #:[id number] : 1970 51 From: Vidal Mcneal MD [...] chills. She is denying any urinary symptoms. [facility] Medical History CAD (coronary artery disease), [place] coronary artery CHF (congestive heart failure) Diabetes [...] With her risk factors am worried about Hodge's esophagus or adenocarcinoma I will refer her [...] 78.2 H Lymph % (Auto) 13.7 L Brule % (Auto) 5.2 Eos % (Auto) 1.6 [...] rhythm with a rate of 115. Normal CO interval. QTc is 478. Nonspecific changes throughout, [...] your Primary Care Provider. Call [facility] ([phone]) or report to the closest Emergency Room. Call 911 if necessary. 07/25/22 1138 <Electronically signed by Vidal Mcneal MD> Cosigner Signature (if applicable): CC: Dr. 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 acute [facility] Work Phone: Evaluation note* Diagnosis Onset Date [...] acidosis acute Peripheral vascular disease, unspecified acute [facility] Work Phone: Evaluation note* Diagnosis Onset Date [...] acute Diabetes mellitus, type 2 ch ronic [facility] Work Phone: Evaluation note* Diagnosis Onset Date [...] Foot pain, right resolved Lactic acidosis resolved [facility] Work Phone: Evaluation note* Diagnosis Onset Date Resolution Status Acute dyspnea acute Chest pain acute Hypoxemia acute Pericardial effusion acute Pleural effusion acute [facility] Work Phone: Evaluation note* Diagnosis Onset Date Resolution Status Chest pain resolved Pleural effusion resolved Bilateral pleural effusion a cute Chest pain acute Hypoxia acute Acute exacerbation of CHF (congestive heart failure) chronic [facility] Work Phone: Evaluation note* Diagnosis Onset Date Resolution Status Chest pain resolved Pleural effusion resolved Bilateral pleural effusion a cute Acute exacerbation of CHF (congestive heart failure) resolved Chest pain resolved Hypoxia resolved CAD (coronary artery disease), [place] coronary artery acute Essential hypertension acute 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 CAD (coronary artery disease), [place] coronary artery acute Essential hypertension acute Hypersomnolence acute 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 [facility] Work Phone: Evaluation note* Diagnosis Onset Date Resolution Status Chest pain resolved Pleural effusion resolved Bilateral pleural effusion a cute Acute exacerbation of CHF (congestive heart failure) resolved Chest pain resolved Hypoxia resolved CAD (coronary artery disease), [place] coronary artery acute Essential hypertension acute 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 CAD (coronary artery disease), [place] coronary artery acute Essential hypertension acute Hypersomnolence acute 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 Epigastric pain acute GERD (gastroesophageal reflux disease) acute Acute dyspnea acute CHF (congestive heart failure) acute History of cardiomyopathy [place] History of coronary artery disease acute Hyperglycemia due to diabetes mellitus acute Hypoxia acute [facility] Work Phone: Evaluation note* Diagnosis Onset Date Resolution Status Bilateral pleural effusion a cute Acute exacerbation of CHF (congestive heart failure) resolved Chest pain resolved Hypoxia resolved CAD (coronary artery disease), [place] coronary artery acute Essential hypertension acute 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 CAD (coronary artery disease), [place] coronary artery acute Essential hypertension acute Hypersomnolence acute 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 Epigastric pain acute GERD (gastroesophageal reflux disease) acute Acute dyspnea acute CHF (congestive heart failure) acute History of cardiomyopathy [place] History of coronary artery disease acute Hyperglycemia due to diabetes mellitus acute Hypoxia acute [facility] Work Phone: Evaluation note* Diagnosis Onset Date Resolution Status CAD (coronary artery disease), [place] coronary artery acute Essential hypertension acute 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 CAD (coronary artery disease), [place] coronary artery acute Essential hypertension acute Hypersomnolence acute 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 Epigastric pain acute GERD (gastroesophageal reflux disease) acute Acute dyspnea acute CHF (congestive heart failure) acute History of cardiomyopathy [place] History of coronary artery disease acute Hyperglycemia due to diabetes mellitus acute Hypoxia acute Acute dyspnea acute Bilateral pleural effusion a cute CHF (congestive heart failure) acute Hypoxia acute [facility] Work Phone: Evaluation note* Diagnosis Onset Date Resolution Status Acute dyspnea acute History of cardiomyopathy [place] History of coronary artery disease acute Hyperglycemia due to diabetes mellitus acute Hypoxia resolved Acute dyspnea acute Bilateral pleural effusion a cute Hypoxia resolved [facility] Work Phone: Evaluation note* Diagnosis Onset Date Resolution Status Acute dyspnea acute Bilateral pleural effusion a cute Hypoxia resolved [facility] Work Phone: Evaluation note* Diagnosis Closed 3-part fracture of proximal humerus, right, with routine healing, subsequent encounter- Primary [facility] Author Rosaura Crane [facility] Note Date/Time September 07, 2024 10:0 0pm [facility] Medical Records Department [address] [place] [address] H&P Exam - Hospitalist 09/07/[id number] MR#: [id number] Acct: [id number] Name: TRENTON JACKSON Rep #:[id number] : 1970 54 From: Rosaura Crane MD PCP: RUTH Lawrence, LEATHER ETCHER-C Statu s:ADM REHAN Location: [place] [address] HPI - General General Date of Admission: [...] which resolved who re- presents to the [facility] ED on 09/07/24 with history of [...] not obtained upon requested evaluation of patient. [facility] Medical History L5 vertebral fracture ESBL (extended [...] (congestive heart failure) CAD (coronary artery disease), [place] coronary artery Home Medications ?Medication ?Instructions ?Recorded [...] IN 1 - 2 pump subdermal Q6H CO N FOR 02/14/24 Unknown History saltsable FEET [...] % (Auto) Cancelled, Lymph % (Auto) Cancelled, Brule % (Auto) Cancelled, Eos % (Auto) Cancelled, [...] Drop Cells Cancelled, Ovalocytes Cancelled, Stomatocytes Cancelled, [place] Bodies Cancelled, [place] Cells Cancelled, Bite Cells Cancelled, Crenated Cell [...] 77.8 H, Lymph % (Auto) 14.5 L, Brule % (Auto) 5.0, Eos % (Auto) 1.7, [...] recommend MRI for further characterization. [facility] & [facility] Assessment/Plan (1) Intractable [...] which resolved who re- presents to the [facility] ED on 09/07/24 with history of [...] 16 minutes. Charges/Coding Visit Charges Inpatient E&M: 19548 Init Hosp L3 Procedures Hospitalists Procedures: 46994 Advncd Care Plan 30 Min 09/07/24 2200 <Electronically signed by Rosaura Crane MD> Cosigner Signature (if applicable): CC: VSC LEATHER ETCHER-C Zohreh Mckeon; Dr. Rosaura Crane MD~ Signed [facility] Work Phone: Hospital Discharge instructions Additional Instructions Continue oral fluids. Zofran as needed. Take pain medicines as prescribed for your fracture. Future prescriptions for pain medicines need to be provided by your PCP or your specialist. Glucose is 402, normal gap, you are not in DKA. Take your medications at home. Follow-up with your doctor.[facility] Work Phone: Hospital Discharge instructions Additional Instructions Hip x-ray negative. Labs are stable. Follow-up with your doctor.[facility] Work Phone: Hospital Discharge instructions Additional Instructions I given you a month supply of gabapentin. You will take 300 mg twice a day for the first 3 days, then you may continue 300 mg 3 times a day for the remainder of the prescription. You need to follow-up with your PCP, I also gave you pain management.[facility] Work Phone: Hospital Discharge instructions Additional Instructions Plenty of fluids and rest. Slowly increase your diet as tolerated. Zofran as needed for nausea. You may swallow or let it dissolve under your tongue. Follow-up with your primary care provider if not improving or return if feeling worse or unable to keep fluids down. Tylenol for hip and knee pain. Follow-up if not improving.[facility] Work Phone: Hospital Discharge instructions Additional Instructions Continue your previous pain medications. Your postoperative wound does not appear to be acutely infected.[facility] Work Phone: Hospital Discharge instructions Additional Instructions Reviewed your MRI and patient recently. Stable L3 fracture, stable L5 fracture. Noted disc herniation L3-L4, this is likely culprit of your pain on your left leg. Continue your gabapentin 300 g 3 times a day as you have at home. supervisor safety deposit your oxycodone that was written on discharge to take as needed. Use Zofran as needed. Follow-up with pain management and orthopedic spine for outpatient evaluation. Monitor your glucose with your insulin.[facility] Work Phone: Hospital Discharge instructions Additional Instructions Workup negative for DKA. continue toAvoid marijuana use. Use your nausea medicines as needed. Follow-up was given.[facility] Work Phone: Hospital Discharge instructionsAdditional Instructions You were given IV fluids and insulin to treat your high blood sugar. I think the pain you have in your legs is neuropathy. This means it is nerve pain. It is treated with medications like gabapentin. I recommend you talk to your prescribing doctor for further care. [facility] Work Phone: Reason for referral (narrative)* Consultation (Routine) - Pending Review Specialty Diagnoses / Procedures Referred By Angelo sapp Referred To Contact Physical Therapy Diagnoses Closed 3-part fracture of proximal humerus, right, with routine healing, subsequent encounter Procedures CO OFFICE/OUTPATIENT NEW HIGH MDM 60-74 MINUTES Jerry Jones PA-C [address] [place] [id number] Referral ID Status Reason Start Date Expiration Date Visits Requested Visits Authorized [id number] Pending Review Specialty Services Required 06/08/2022 12/05/2022 99 99 [facility] for referral (narrative)No reason for referral information [facility] Work [facility]: Summary Purpose Family History [...] Will No March 27 10:33am Power of Air Defense Specialist No March 27, 2022 10:33am Advance Directive Response Recorded Date/ Time Advance Directives No February 01, 2016 5:21am Living Will No April 17 4:47pm Power of Air Defense Specialist No April 17, 2022 4:47pm Advance Directive Response Recorded Date/ Time Advance Directives No February 01, 2016 5:21am Living Will No April 18 022 3:36pm Power of Air Defense Specialist No April 18, 2022 3:36pm Advance Directive Response Recorded Date/ Time Advance Directives No February 01, 2016 5:21am Living Will No May 09 9:47pm Power of Air Defense Specialist No May 09, 2022 9:47pm Advance Directive Response Recorded Date/ Time Advance Directives No February 01, 2016 5:21am Living Will No May 19 5:31pm Power of Air Defense Specialist No Jasiel 16th, 2022 5:31pm Advance Directive Response Recorded Date/ Time Advance Directives No February 01, 2016 5:21am Living Will No July 25, 2 023 9:18am Power of Air Defense Specialist No July 25, 2022 9:18am Advance Directive Response Recorded Date/ Time Advance Directives No February 01, 2016 5:21am Living Will No August 03, 2022 12:21pm Power of Air Defense Specialist No August 03 12:21pm Advance Directive Response Recorded Date/ Time Advance Directives No August 10 7:07am Living Will No August 10, 2022 7:07am Power of Air Defense Specialist No August 10 7:07am Advance Directive Response Recorded Date/ Time Advance Directives No August 10 8:07am Living Will No August 14, 2022 1:53pm Power of Air Defense Specialist No August 14 1:53pm Advance Directive Response Recorded Date/ Time Advance Directives No August 10 8:07am Living Will No August 30, 2022 4:44pm Power of Air Defense Specialist No August 30 4:44pm Advance Directive Response Recorded Date/ Time Advance Directives No August 10 8:07am Living Will No September 05, 2022 12:31pm Power of Air Defense Specialist No September 05 12:31pm Advance Directive Response Recorded Date/ Time Advance Directives No August 10 8:07am Living Will No September 09, 2022 7:25pm Power of Air Defense Specialist No September 09 7:25pm Advance Directive Response Recorded Date/ Time Advance Directives No August 10 8:07am Living Will No September 11, 2022 3:01pm Power of Air Defense Specialist No September 11 3:01pm Advance Directive Response Recorded Date/ Time Advance Directives No August 10 8:07am Living Will No September 18, 2022 2:32pm Power of Air Defense Specialist No September 18 2:32pm Advance Directive Response Recorded Date/ Time Advance Directives No August 10 8:07am Living Will No October 01, 2022 11:14am Power of Air Defense Specialist No October 01 11:14am Advance Directive Response Recorded Date/ Time Advance Directives No August 10 8:07am Living Will No January 01, 2023 12:13pm Power of Air Defense Specialist No January 01 12:13pm Advance Directive Response Recorded Date/ Time Advance Directives No August 10 8:07am Living Will No January 01, 2023 5:09pm Power of Air Defense Specialist No January 01 5:09pm Advance Directive Response Recorded Date/ Time Advance Directives No August 10 8:07am Living Will No February 02, 2 023 11:25am Power of Air Defense Specialist No February 02, 2023 11:25am Advance Directive Response Recorded Date/ Time Advance Directives No August 10 8:07am Living Will No February 02, 2 023 8:41pm Power of Air Defense Specialist No February 02, 2023 8:41pm Advance Directive Response Recorded Date/ Time Advance Directives No August 10 7:07am Living Will No February 02, 2 023 7:41pm Power of Air Defense Specialist No February 02, 2023 7:41pm Advance Directive Response Recorded Date/ Time Advance Directives No August 10 7:07am Living Will No May 03, 2 023 1:37pm Power of Air Defense Specialist No May 03, 2023 1:37pm Advance Directive Response Recorded Date/ Time Advance Directives No August 10 7:07am Living Will No May 03, 2 023 5:41pm Power of Air Defense Specialist No May 03, 2023 5:41pm Advance Directive Response Recorded Date/ Time Advance Directives No August 10 7:07am Living Will No May 22, 2 023 2:33pm Power of Air Defense Specialist No May 22, 2023 2:33pm Advance Directive Response Recorded Date/ Time Advance Directives No August 10 7:07am Living Will No June 13 3:00am Power of Air Defense Specialist No June 13, 2023 3:00am Advance Directive Response Recorded Date/ Time Advance Directives No August 10 7:07am Living Will No June 19 9:35am Power of Air Defense Specialist No June 19, 2023 9:35am Advance Directive Response Recorded Date/ Time Advance Directives No August 10 8:07am Living Will No September 02, 2023 7:42am Power of Air Defense Specialist No September 01 7:42am Date Activated Date [...] October 15, 2023 5 :10pm Power of Air Defense Specialist No October 15, 2023 5:10pm Advance Directive Response Recorded Date/ Time Living Will No April 25 024 5:40pm Do you have a Healthcare Power of Air Defense Specialist? No April 25, 2024 5:40pm Living Will No June 29 10:04pm Do you have a Healthcare Power of Air Defense Specialist? No June 29, 2024 10:04pm Living Will No August 26, 2024 10:15am Do you have a Healthcare Power of Air Defense Specialist? No August 26, 2024 10:15am Living Will No August 01 025 2:53pm Do you have a Healthcare Power of Air Defense Specialist? No August 01, 2024 2:53pm Advance Directives No August 10 8:07am Advance Directive Response Recorded Date/ Time Living Will No June 29 10:04pm Do you have a Healthcare Power of Air Defense Specialist? No June 29, 2024 10:04pm Living Will No August 26, 2024 8:30pm Do you have a Healthcare Power of Air Defense Specialist? No August 26, 2024 8:30pm Living Will No August 01 025 2:53pm Do you have a Healthcare Power of Air Defense Specialist? No August 01, 2024 2:53pm Advance Directives No August 10 8:07am Advance Directive Response Recorded Date/ Time Living Will No June 29 10:04pm Do you have a Healthcare Power of Air Defense Specialist? No June 29, 2024 10:04pm Living Will No August 26, 2024 8:30pm Do you have a Healthcare Power of Air Defense Specialist? No August 26, 2024 8:30pm Living Will No August 01, 2 025 2:53pm Do you have a Healthcare Power of Air Defense Specialist? No August 01, 2024 2:53pm Living Will No September 05, 2024 10:31am Do you have a Healthcare Power of Air Defense Specialist? No September 05, 2024 10:31am Advance Directives No August 10 8:07am Advance Directive Response Recorded Date/ Time Living Will No June 29 10:04pm Do you have a Healthcare Power of Air Defense Specialist? No June 29, 2024 10:04pm Living Will No August 26, 2024 8:30pm Do you have a Healthcare Power of Air Defense Specialist? No August 26, 2024 8:30pm Living Will No September 07, 2024 3:55pm Do you have a Healthcare Power of Air Defense Specialist? No September 07, 2024 3:55pm Living Will No August 01, 2 025 2:53pm Do you have a Healthcare Power of Air Defense Specialist? No August 01, 2024 2:53pm Living Will No September 05, 2024 10:31am Do you have a Healthcare Power of Air Defense Specialist? No September 05, 2024 10:31am Advance Directives No August 10 8:07am Advance Directive Response Recorded Date/ Time Living Will No June 29 10:04pm Do you have a Healthcare Power of Air Defense Specialist? No June 29, 2024 10:04pm Living Will No August 26, 2024 8:30pm Do you have a Healthcare Power of Air Defense Specialist? No August 26, 2024 8:30pm Living Will No September 07, 2024 10:21pm Do you have a Healthcare Power of Air Defense Specialist? No September 07, 2024 10:21pm Living Will No August 01, 2 025 2:53pm Do you have a Healthcare Power of Air Defense Specialist? No August 01, 2024 2:53pm Living Will No September 05, 2024 10:31am Do you have a Healthcare Power of Air Defense Specialist? No September 05, 2024 10:31am Advance Directives No August 10 8:07am Advance Directive Response Recorded Date/ Time Living Will No June 29 10:04pm Do you have a Healthcare Power of Air Defense Specialist? No June 29, 2024 10:04pm Living Will No August 26, 2024 8:30pm Do you have a Healthcare Power of Air Defense Specialist? No August 26, 2024 8:30pm Living Will No September 07, 2024 10:21pm Do you have a Healthcare Power of Air Defense Specialist? No September 07, 2024 10:21pm Living Will No September 21, 2024 12:25pm Do you have a Healthcare Power of Air Defense Specialist? No September 21, 2024 12:25pm Living Will No August 01, 025 2:53pm Do you have a Healthcare Power of Air Defense Specialist? No August 01, 2024 2:53pm Living Will No September 05, 2024 10:31am Do you have a Healthcare Power of Air Defense Specialist? No September 05, 2024 10:31am Advance Directives No August 10 8:07am Advance Directive Response Recorded Date/ Time Living Will No June 29 10:04pm Do you have a Healthcare Power of Air Defense Specialist? No June 29, 2024 10:04pm Living Will No August 26, 2024 8:30pm Do you have a Healthcare Power of Air Defense Specialist? No August 26, 2024 8:30pm Living Will No September 07, 2024 10:21pm Do you have a Healthcare Power of Air Defense Specialist? No September 07, 2024 10:21pm Living Will No September 21, 2024 12:25pm Do you have a Healthcare Power of Air Defense Specialist? No September 21, 2024 12:25pm Do you have a Healthcare Power of Air Defense Specialist? No September 29, 2024 10:26am Living Will No August 01 2:53pm Do you have a Healthcare Power of Air Defense Specialist? No August 01, 2024 2:53pm Living Will No September 05, 2024 10:31am Do you have a Healthcare Power of Air Defense Specialist? No September 05, 2024 10:31am Advance Directives No August 10 8:07am Advance Directive Response Recorded Date/ Time Living Will No August 26, 2024 8:30pm Do you have a Healthcare Power of Air Defense Specialist? No August 26, 2024 8:30pm Living Will No September 07, 2024 10:21pm Do you have a Healthcare Power of Air Defense Specialist? No September 07, 2024 10:21pm Living Will No September 21, 2024 12:25pm Do you have a Healthcare Power of Air Defense Specialist? No September 21, 2024 12:25pm Do you have a Healthcare Power of Air Defense Specialist? No September 29, 2024 10:26am Living Will No September 05, 2024 10:31am Do you have a Healthcare Power of Air Defense Specialist? No September 05, 2024 10:31am Do you have a Healthcare Power of Air Defense Specialist? No December 12, 2024 4:18pm Advance Directives No August 10 8:07am Hospital Course Note HNO ID: [id number] Author: Paige Yao) Lizz Service: Hospital Medicine [...] (more content not included)... Note HNO ID: [id number] Author: Rosi Morrow Service: Hospital Medicine Author [...] (more content not included)... Note HNO ID: [id number] Author: Maria Isabel Sherman Service: Clinical Cardiology [...] at Discharge: .Home Vital Signs: T [id number] [id number]% Date/Time09/29 11: 11: 11: 11: 11:35 Range(36.1C [...] not included)... Procedure Findings Note HNO ID: [id number] Author: Maria Isabel Sherman Service: Clinical Cardiology [...] N/V, BACK PAIN, ARM PAIN CHEST PAIN [facility] Hospital POSSIBLE INTERVENTION POSSIBLE INTERVENTION Reason for [...] Congestive heart failure Congestive heart failure EST ([facility]) 2 wk fu per PUBLIC RELATIONS REPRESENTATIVE G47.10 Reason for Visit Chest pain Pleural effusion Bilateral pleural effusion Acute exacerbation of CHF (congestive heart failure) Chest pain Hypoxia CAD (coronary artery disease), [place] coronary artery Essential hypertension Ischemic cardiomyopathy CAD (coronary artery disease), [place] coronary artery Essential hypertension Hypersomnolence Ischemic cardiomyopathy Chief Complaint CHF, PLEURITIC CHEST PAIN CHF, PLEURITIC CHEST PAIN CHF, PLEURITIC CHEST PAIN CHF, PLEURITIC CHEST PAIN CHF Congestive heart failure Congestive heart failure EST ([facility]) 2 wk fu per PUBLIC RELATIONS REPRESENTATIVE G47.10 Epigastric Pain/Recurrent Vomiting Reason for Visit Chest pain Pleural effusion Bilateral pleural effusion Acute exacerbation of CHF (congestive heart failure) Chest pain Hypoxia CAD (coronary artery disease), [place] coronary artery Essential hypertension Ischemic cardiomyopathy CAD (coronary artery disease), [place] coronary artery Essential hypertension Hypersomnolence Ischemic cardiomyopathy Chief Complaint CHF, PLEURITIC CHEST PAIN CHF, PLEURITIC CHEST PAIN CHF Congestive heart failure Congestive heart failure EST ([facility]) 2 wk fu per PUBLIC RELATIONS REPRESENTATIVE G47.10 Epigastric Pain/Recurrent Vomiting CHF EXACERBATION Reason for Visit Chest pain Pleural effusion Bilateral pleural effusion Acute exacerbation of CHF (congestive heart failure) Chest pain Hypoxia CAD (coronary artery disease), [place] coronary artery Essential hypertension Ischemic cardiomyopathy CAD (coronary artery disease), [place] coronary artery Essential hypertension Hypersomnolence Ischemic cardiomyopathy Epigastric pain GERD (gastroesophageal reflux disease) Acute dyspnea CHF (congestive heart failure) History of cardiomyopathy History of coronary artery disease Hyperglycemia due to diabetes mellitus Hypoxia Chief Complaint CHF Congestive heart failure Congestive heart failure EST ([facility]) 2 wk fu per PUBLIC RELATIONS REPRESENTATIVE G47.10 Epigastric Pain/Recurrent Vomiting CHF EXACERBATION CHF EXACERBATION CHF EXACERBATION CHF EXACERBATION CHF EXACERBATION CHF EXACERBATION CHF EXACERBATION CHF EXACERBATION Reason for Visit Bilateral pleural ef fusion Acute exacerbation of CHF (congestive heart failure) Chest pain Hypoxia CAD (coronary artery disease), [place] coronary artery Essential hypertension Ischemic cardiomyopathy CAD (coronary artery disease), [place] coronary artery Essential hypertension Hypersomnolence Ischemic cardiomyopathy Epigastric pain GERD (gastroesophageal reflux disease) Acute dyspnea CHF (congestive heart failure) History of cardiomyopathy History of coronary artery disease Hyperglycemia due to diabetes mellitus Hypoxia Chief Complaint CHF Congestive heart failure Congestive heart failure EST ([facility]) 2 wk fu per PUBLIC RELATIONS REPRESENTATIVE G47.10 Epigastric Pain/Recurrent Vomiting CHF EXACERBATION CHF EXACERBATION CHF EXACERBATION CHF EXACERBATION CHF EXACERBATION CHF EXACERBATION CHF EXACERBATION CHF EXACERBATION foot pain Reason for Visit Bilateral pleural ef fusion Acute exacerbation of CHF (congestive heart failure) Chest pain Hypoxia CAD (coronary artery disease), [place] coronary artery Essential hypertension Ischemic cardiomyopathy CAD (coronary artery disease), [place] coronary artery Essential hypertension Hypersomnolence Ischemic cardiomyopathy Epigastric pain GERD (gastroesophageal reflux disease) Acute dyspnea CHF (congestive heart failure) History of cardiomyopathy History of coronary artery disease Hyperglycemia due to diabetes mellitus Hypoxia Chief Complaint EST ([facility]) 2 wk fu per PUBLIC RELATIONS REPRESENTATIVE G47.10 Epigastric Pain/Recurrent Vomiting CHF EXACERBATION CHF EXACERBATION CHF EXACERBATION CHF EXACERBATION CHF EXACERBATION CHF EXACERBATION CHF EXACERBATION CHF EXACERBATION foot pain n/v ACUTE ON CHRONIC HFREF Reason for Visit CAD (coronary artery disease), [place] coronary artery Essential hypertension Ischemic cardiomyopathy CAD (coronary artery disease), [place] coronary artery Essential hypertension Hypersomnolence Ischemic cardiomyopathy Epigastric pain GERD (gastroesophageal reflux disease) Acute dyspnea CHF (congestive heart failure) History of cardiomyopathy History of coronary artery disease Hyperglycemia due to diabetes mellitus Hypoxia Acute dyspnea Bilateral pleural effusion CHF (congestive heart failure) Hypoxia Chief Complaint EST ([facility]) 2 wk fu per PUBLIC RELATIONS REPRESENTATIVE G47.10 Epigastric Pain/Recurrent Vomiting CHF EXACERBATION CHF EXACERBATION CHF EXACERBATION CHF EXACERBATION CHF EXACERBATION CHF EXACERBATION CHF EXACERBATION CHF EXACERBATION foot pain n/v ACUTE ON CHRONIC HFREF ACUTE ON CHRONIC HFREF ACUTE ON CHRONIC HFREF ACUTE ON CHRONIC HFREF ACUTE ON CHRONIC HFREF Reason for Visit CAD (coronary artery disease), [place] coronary artery Essential hypertension Ischemic cardiomyopathy CAD (coronary artery disease), [place] coronary artery Essential hypertension Hypersomnolence Ischemic cardiomyopathy Epigastric pain GERD (gastroesophageal reflux disease) Acute dyspnea CHF (congestive heart failure) History of cardiomyopathy History of coronary artery disease Hyperglycemia due to diabetes mellitus Hypoxia Acute dyspnea Bilateral pleural effusion CHF (congestive heart failure) Hypoxia Chief Complaint EST ([facility]) 2 wk fu per PUBLIC RELATIONS REPRESENTATIVE G47.10 Epigastric Pain/Recurrent Vomiting CHF EXACERBATION CHF EXACERBATION CHF EXACERBATION CHF EXACERBATION CHF EXACERBATION CHF EXACERBATION CHF EXACERBATION CHF EXACERBATION foot pain n/v ACUTE ON CHRONIC HFREF ACUTE ON CHRONIC HFREF ACUTE ON CHRONIC HFREF ACUTE ON CHRONIC HFREF ACUTE ON CHRONIC HFREF fall Reason for Visit CAD (coronary artery disease), [place] coronary artery Essential hypertension Ischemic cardiomyopathy CAD (coronary artery disease), [place] coronary artery Essential hypertension Hypersomnolence Ischemic cardiomyopathy [...] effusion Hypoxia Chief Complaint fall 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 HIP PAIN Chief Complaint Admit [...] 2024 8:03pm PERIPHERAL ARTERIAL CRITICAL ST[place]OSIS [place] [facility] August 27, 2024 7:05am PERIPHERAL ARTERIAL CRITICAL ST[place]OSIS [place] [facility] August 27, 2024 7:25am PERIPHERAL ARTERIAL CRITICAL STENOSIS [place] [facility] August 28, 2024 5:55pm PERIPHERAL ARTERIAL CRITICAL STENOSIS [place] [facility] August 29, 2024 9:45am PERIPHERAL ARTERIAL CRITICAL STENOSIS [place] [facility] August 30, 2024 3:28pm PERIPHERAL ARTERIAL CRITICAL STENOSIS [place] [facility] August 31, 2024 8:54am PERIPHERAL ARTERIAL CRITICAL STENOSIS [place] [facility] September 01, 2024 8:19am PERIPHERAL ARTERIAL CRITICAL ST[facility]OSIS [place] [facility] September 02, 2024 7:51am n/v/d, abd and [...] 2024 1:45pm PERIPHERAL ARTERIAL CRITICAL ST[place]OSIS [place] [facility] August 26, 2024 8:03pm PERIPHERAL ARTERIAL CRITICAL STENOSIS [place] [facility] August 27, 2024 7:05am PERIPHERAL ARTERIAL CRITICAL STENOSIS [place] [facility] August 27, 2024 7:25am PERIPHERAL ARTERIAL CRITICAL STENOSIS [place] [facility] August 28, 2024 5:55pm PERIPHERAL ARTERIAL CRITICAL STENOSIS [facility] August 29, 2024 9:45am PERIPHERAL ARTERIAL CRITICAL STENOSIS [place] [facility] August 30, 2024 3:28pm PERIPHERAL ARTERIAL CRITICAL STENOSIS [facility] August 31, 2024 8:54am PERIPHERAL ARTERIAL CRITICAL STENOSIS [facility] September 01, 2024 8:19am PERIPHERAL ARTERIAL CRITICAL STENOSIS [facility] September 02, 2024 7:51am n/v/d, abd [...] 2024 3:28pm PERIPHERAL ARTERIAL CRITICAL STENOSIS [place] [facility] August 31, 2024 8:54am PERIPHERAL ARTERIAL CRITICAL STENOSIS [place] [facility] September 01, 2024 8:19am PERIPHERAL ARTERIAL CRITICAL STENOSIS [place] [facility] September 02, 2024 7:51am n/v/d, abd and [...] Complaint Admit Date PERIPHERAL ARTERIAL CRITICAL STENOSIS [facility] August 26, 2024 8:03pm PERIPHERAL ARTERIAL CRITICAL STENOSIS [facility] August 27, 2024 7:05am PERIPHERAL ARTERIAL CRITICAL STENOSIS [facility] August 27, 2024 7:25am PERIPHERAL ARTERIAL CRITICAL STENOSIS [facility] August 28, 2024 5:55pm PERIPHERAL ARTERIAL CRITICAL STENOSIS [facility] August 29, 2024 9:45am PERIPHERAL ARTERIAL CRITICAL STENOSIS [facility] August 30, 2024 3:28pm PERIPHERAL ARTERIAL CRITICAL STENOSIS [facility] August 31, 2024 8:54am PERIPHERAL ARTERIAL CRITICAL STENOSIS [facility] September 01, 2024 8:19am PERIPHERAL ARTERIAL CRITICAL STENOSIS [facility] September 02, 2024 7:51am n/v/d, abd [...] section and content) DATE CREATED AUTHOR 07/24/2018 [facility] DATE CREATED AUTHOR AUTHOR'S ORGANIZ ATION 04/08/2019 [facility] DATE CREATED AUTHOR AUTHOR'S ORGANIZ ATION 08/28/2019 [facility] DATE CREATED AUTHOR AUTHOR'S ORGANIZ ATION 06/09/2020 [facility] DATE CREATED AUTHOR AUTHOR'S ORGANIZ ATION 06/09/2020 [employer] DATE CREATED AUTHOR AUTHOR'S ORGANIZ ATION 08/17/2021 [facility] DATE CREATED AUTHOR AUTHOR'S ORGANIZ ATION 05/06/2022 [facility] DATE CREATED AUTHOR AUTHOR'S ORGANIZ ATION 09/07/2022 [facility] ([place]) DATE CREATED AUTHOR AUTHOR'S ORGANIZ ATION 05/30/2024 [facility] DATE CREATED AUTHOR AUTHOR'S ORGANIZ ATION 07/07/2024 [facility] DATE CREATED AUTHOR AUTHOR'S ORGANIZ ATION 09/14/2024 [facility] DATE CREATED AUTHOR AUTHOR'S ORGANIZ ATION 12/24/2024 [facility] <item> Privacy Markings (unrecogniz ed section and [...] Team Status: Active Member Role Status Dates [facility] Primary Care Provider Active ROBERT HERNANDEZ Attending Provider, Referring Provider Active Team Status: Inactive Member Role Status Dates Dr. Nathaly Lainez Primary Care Provider Active Dr. Conor Martin DO Attending Provider, Emergency Pr ovider Active Team Status: Inactive Member Role Status Dates Dr. Nathaly [facility]z Primary Care Provider Active Dr. Zack Card DO Attending Provider, Emergency Provide r Active Team Status: Inactive Member Role Status Dates Dr. Nathaly [facility] Primary Care Provider Active Zohreh Mckeon LEATHER ETCHER, LEATHER ETCHER-C Attending Provider Active Team Status: Inactive Member Role Status Dates Dr. Nathaly [facility]z Primary Care Provider Active Dr. Vidal Mcneal MD Emergency Provider Active Team Status: Inactive Member Role Status Dates Dr. Nathaly L[facility]z Primary Care Provider Active Dr. Riccardo Hillman DO Emergency Provider Active Team Status: Active Member Role Status Dates Dr. Uziel Conteh MD Family Provider Active [facility] Primary Care Provider A ctive Team Status: Inactive Member Role Status Dates Dr. Nathaly L[facility]z Primary Care Provider, Referring P rovider Active Veda SALAZAR, PA Attending Provider Active Team Status: Active Member Role Status Dates Dr. Riccardo Ng MD Attending Provider, Referring Provider, Other Provider Active [facility] Primary Care Provider A ctive Team Status: [...] MD Attending Provider, Referring Pro vider Active [facility] Primary Care Provider A ctive Team Status: Inactive Member Role Status Dates [facility] Primary Care Provider A ctive Dr. Roberto Black MD Emergency Provider Active Team Status: Inactive Member Role Status Dates [facility] Primary Care Provider, Referring Provider Active Veda Mathis PA, PA Attending Provider Active Team Status: Active Member Role Status Dates [facility] Primary Care Provider A ctive Dr. Riccardo Ng MD Attending Provider Active Team Status: Inactive Member Role Status Dates Dr. Serrato [facility] Primary Care Provider Active Dr. Ananda Coyle MD Attending Provider, Emergency Pro vider Active Team Status: Inactive Member Role Status Dates MARTIN Sheldon Attending Provider, Referrin g Provider Active [facility] Primary Care Provider A ctive Team Status: Inactive Member Role Status Dates [facility] Primary Care Provider A ctive Dr. Roberto Black MD Attending Provider, Emergency Provider Active Team Status: Active Member Role Status Dates [facility] Primary Care Provider A ctchristianne Rawls MD Emergency Provider Active Dr. Jeison Forde , DPM Admit Provider, Attending Pro vider Active Dr. Sabina Rosenberg DO Other Provider Active Team Status: Active Member Role Status Dates [facility] Primary Care Provider A dayday Rawls MD Emergency Provider Active Dr. Jeison Forde , DPM Admit Provider, Other Provide r Active Dr. Sabina Rosenberg DO Attending Provider, Other Pro vider Active Team Status: Active Member Role Status Dates [facility] Primary Care Provider A ctive Dr. Sanjiv Alcantar MD Attending Provider Activ e Team Status: Inactive Member Role Status Dates [facility] Primary Care Provider A ctchristianne Rawls MD Emergency Provider Active Dr. Jeison Forde , DPM Admit Provider, Attending Pro vider Active Dr. Sabina Rosenberg DO Other Provider Active Team Status: Active Member Role Status [facility] Primary Care Provider A dayday Rawls MD Emergency Provider Active Dr. Jeison Forde , DPM Admit Provider, Referring Provider, Other Provider Active Dr. Sabina Rosenberg DO Attending Provider, Other Pro vider Active Team Status: Inactive Member Role Status [facility] Primary Care Provider A ctive Dr. Yvette Hanley , Emergency Provider Active Team Status: Active Member Role Status [facility] Primary Care Provider A ctive Dr. Riccardo Ng MD Attending Provider Active MARTIN Sheldon Referring Provider Active Team Status: Active Member Role Status Dates [facility] Primary Care Provider A ctive MARTIN Sheldon Attending Provider, Referrin g Provider Active Team Status: Inactive Member Role Status Dates [facility] Primary Care Provider A ctive Dr. Griselda Christina MD Emergency Provider Active Team Status: Inactive Member Role Status Dates [facility] Primary Care Provider A ctive MARTIN Sheldon Attending Provider, Referrin g Provider Active Team Status: Inactive Member Role Status Dates [facility] Primary Care Provider A ctive Dr. Yvette Hanley DO Attending Provider, Emergency Pro vider Active Team Status: Inactive Member Role Status Dates [facility] Primary Care Provider A ctive Dr. Griselda Christina MD Attending Provider, Emergency Provider Active Team Status: Inactive Member Role Status Dates [facility] Primary Care Provider A ctive Dr. Zack Card DO Emergency Provider Active Team Status: Inactive Member Role Status Dates [facility] Primary Care Provider A ctive Dr. Zack Card DO Attending Provider, Emergency Provide r Active Team Status: Inactive Member Role Status Dates [facility] Primary Care Provider A ctive Dr. Ananda Coyle MD Referring Provider, Emergency Pro vider Active Team Status: Inactive Member Role Status Dates Dr. Serrato [facility] Primary Care Provider, Referring P rovider Active MARTIN Horn Attending Provider Active Team Status: Inactive Member Role Status Dates [facility] Primary Care Provider, Referring Provider Active MARTIN Horn Attending Provider Active Team Status: Active Member Role Status Dates [facility] Primary Care Provider A ctive Dr. Riccardo Ng MD Attending Provider Active MARTIN Horn Referring Provider Active Team Status: Active Member Role Status Dates [facility] Primary Care Provider A ctive Dr. Riccardo Ng MD Attending Provider Active Dr. Yvette Hanley DO Referring Provider Active Team Status: Inactive Member Role Status Dates MARTIN Horn Attending Provider, Referring Provider Active [facility] Primary Care Provider A ctive Team Status: Inactive Member Role Status Dates [facility] Primary Care Provider A ctive MARTIN Horn Attending Provider, Referring Provider Active Team Status: Inactive Member Role Status Dates [facility] Primary Care Provider A ctive Dr. Ananda Coyle MD Attending Provider, Referring Provider, Emergency Provider Active Team Status: Active Member Role Status Dates [facility] Primary Care Provider A ctive Dr. Yvette Hanley , DO Emergency Provider Active Dr. Sabina Rosenberg DO Admit Provider, Attending Pro vider Active Team Status: Active Member Role Status [facility] Primary Care Provider A ctive Dr. Yvette Hanley , DO Emergency Provider Active Dr. Sabina Rosenberg , Admit Provider, Attending Provider, Other Provider Active Team Status: Inactive Member Role Status Dates [facility] Primary Care Provider A ctive Dr. Yvette Hanley , DO Emergency Provider Active Dr. Sabina Rosenberg , Admit Provider, Attending Pro vider Active Team Status: Active Member Role Status [facility] Primary Care Provider A ctive Dr. Zack Card , DO Emergency Provider Active Dr. Brandon Adames MD Admit Provi dianelys, Attending Provider, Other Provider Active Team Status: Active Member Role Status [facility] Primary Care Provider A ctive Dr. Zack Card , DO Emergency Provider Active Dr. Brandon Adames MD Admit Provider, Attending Provider Active Team Status: Inactive Member Role Status [facility] Primary Care Provider A ctive Dr. Zack Card , DO Emergency Provider Active Dr. Brandon Adames MD Admit Provider, Other Pro vider Active Dr. Sabina Rosenberg , Attending Provider Active Team Status: Inactive Member Role Status [facility] Primary Care Provider, Referring Provider Active Dr. Alli Brito MD Attending Provider Active Team Status: Active Member Role Status [facility] Primary Care Provider A ctive Dr. Zack Card , DO Emergency Provider Active Dr. Brandon Adames MD Admit Provider, Other Pro vider Active Dr. Sabina Rosenberg DO Attending Provider, Other Pro vider Active Team Status: Inactive Member Role Status [facility] Primary Care Provider, Referring Provider Active Juancarlos Pandey LEATHER ETCHER, LEATHER ETCHER-C Attending Provider Active Team Status: Inactive Member Role Status [facility] Primary Care Provider A ctive Juancarlos Pandey LEATHER ETCHER, LEATHER ETCHER-C Attending Provider, Referring Pro vider Active Team Status: Inactive Member Role Status Dates [facility] Primary Care Provider, Referring Provider Active Dr. Lino Sousa MD Attending Provider Active Team Status: Inactive Member Role Status [facility] Primary Care Provider A ctive Dr. Lino Sousa MD Attending Provider, Referr ing Provider Active Team Status: Active Member Role Status [facility] Primary Care Provider A ctive Dr. Ananda Coyle MD Emergency Provider Active Dr. Lei Justin DO Admit Provider, Attending Provider Active Team Status: Active Member Role Status Dates [facility] Primary Care Provider A ctive Dr. Ananda Coyle MD Emergency Provider Active Dr. Lei Justin DO Admit Provider, Other Pro vider Active Dr. Alli Brito MD Attending Provider, Other Provide r Active Dr. Brenda Posadas MD Other Provider Active Team Status: Active Member Role Status [facility] Primary Care Provider A ctive Dr. Ananda Coyle MD Emergency Provider Active Dr. Lei Justin DO Admit Provider, Other Pro vider Active Dr. Alli Brito MD Other Provider Active Dr. Brenda Posadas MD Attending Provider, Other Provid er Active Team Status: Active Member Role Status [facility] Primary Care Provider A ctive Dr. Ananda Coyle MD Emergency Provider Active Dr. Lei Justin DO Admit Provider, Other Pro vider Active Dr. Alli Brito MD Other Provider Active Dr. Latricia Aaron MD Attending Provider, Other Provid er Active Dr. Brenda Posadas MD Other Provider Active Team Status: Inactive Member Role Status Dates [facility] Primary Care Provider A ctive Dr. Ananda Coyle MD Emergency Provider Active Dr. Lei Justin DO Admit Provider, Other Pro vider Active Dr. Alli Brito MD Other Provider Active Dr. Latricia Aaron MD Attending Provider Active Dr. Brenda Posadas MD Other Provider Active Team Status: Active Member Role Status Dates [facility] Primary Care Provider A ctive Dr. Ananda Coyle MD Emergency Provider Active Dr. Lei Justin DO Admit Provi dianelys, Referring Provider, Other Provider Active Dr. Alli Brito MD Attending Provider, Other Provide r Active Dr. Brenda Posadas MD Other Provider Active Team Status: Inactive Member Role Status Dates [facility] Primary Care Provider A ctive Dr. Derek Paniagua MD Emergency Provider Active Team Status: Inactive Member Role Status Dates [facility] Primary Care Provider A ctive Dr. Derek Paniagua MD Attending Provider, Emergency Provi dianelys Active Team Status: Active Member Role Status Dates [facility] Primary Care Provider A ctive Dr. Riccardo Hillman , DO Emergency Provider Active Dr. Talisha Boykin MD Admit Provider, Attending Prov ider Active Team Status: Inactive Member Role Status Dates [facility] Primary Care Provider A ctive Dr. Ananda Coyle MD Attending Provider, Emergency Pro vider Active Team Status: Active Member Role Status Dates [facility] Primary Care Provider A ctive Dr. Riccardo Hillman , DO Emergency Provider Active Dr. Talisha Boykin MD Admit Provider, Other Provider Active Dr. Jeremy Alexander MD Attending Provider, Other Provi dianelys Active Team Status: Active Member Role Status Dates [facility] Primary Care Provider A ctive Dr. Riccardo Hillman , DO Emergency Provider Active Dr. Talisha Boykin MD Admit Provider, Other Provider Active Dr. Jeremy Alexander MD Attending Provider, Other Provi dianelys Active Dr. Moody Gallagher DPM Other Provider Active Team Status: Inactive Member Role Status Dates [facility] Primary Care Provider A ctive Dr. Riccardo Hillman , DO Emergency Provider Active Dr. Talisha Boykin MD Admit Provider, Other Provider Active Dr. Jeremy Alexander MD Attending Provider Active Dr. Moody Gallagher DPM Other Provider Active Team Status: Active Member Role Status Dates [facility] Primary Care Provider A ctive Dr. Riccardo Hillman , DO Emergency Provider Active Dr. Talisha Boykin MD Admit Provider, Attending Provider, Other Provider Active Dr. Jeremy Alexander MD Other Provider Active Team Status: Active Member Role Status [facility] Primary Care Provider A ctive Patient Link Program Attending Provider, Referring Pro vider Active Team Status: Inactive Member Role Status Dates [facility] Primary Care Provider A ctive Dr. Ananda Coyle MD Emergency Provider Active Copy Clerk Relationship Specialty Start Date End Date [facility] [address] [place] [address] PCP - General 09/02/23 Zohreh Mckeon NP [address] [place] [phone] Referring Family Medicine 10/18/22 Team Status: Inactive Member Role Status Dates [facility] Primary Care Provider A ctive Dr. Kaylie PEMBERTON MD Attending Provider Active Team Status: Active Member Role Status Dates [facility] Primary Care Provider A ctive Dr. Kaylie PEMBERTON MD Attending Provider Active Copy Clerk Relationship Specialty Start Date End Date [facility] [address] [place] [address] PCP - General 09/02/23 Zohreh Mckeon NP [address] [place] [address] Referring Family Medicine 10/18/22 Team Status: Active Member Role Status Dates [facility] Primary Care Provider A ctive Dr. Kaylie PEMBERTON MD Attending Provider, Referring Provider Active Team Status: Inactive Member Role Status Dates [facility] Primary Care Provider A ctive Jeremiah Rawls MD Emergency Provider Active Copy Clerk Relationship Specialty Start Date End Date [facility] [address] [place] [address] PCP - General 09/02/23 Zohreh Mckeon NP [address] [place] [phone] Referring Family Medicine 10/18/22 Copy Clerk Relationship Specialty Start Date End Date [facility] [address] [place] [phone] PCP - General 09/02/23 Zohreh Mckeon NP [address] [place] [phone] Referring Family Medicine 10/18/22 Copy Clerk Relationship Specialty Start Date End Date [facility] [address] [place] [phone] PCP - General 09/02/23 Zohreh Mckeon NP [facility] [place] [phone] Referring Family Medicine 10/18/22 Copy Clerk Relationship Specialty Start Date End Date [facility] [place] [phone] PCP - General 09/02/23 Zohreh Mckeon NP [facility] [place] [address] Referring Family Medicine 10/18/22 Copy Clerk Relationship Specialty Start Date End Date No, Pcp [address] [place] [address] PCP - General 05/02/22 Team Status: Active Member Role Status Dates Zohreh Mckeon [facility], LEATHER ETCHER-C Primary Care Provider Activ e Team Status: Inactive Member Role Status Dates [facility] Primary Care Provider Active Start: April 252023 [...] Team Status: Active Member Role Status Dates [facility] Primary Care Provider Active Start: April 282023 [...] Team Status: Active Member Role Status Dates [facility] Primary Care Provider Active Start: April 292023 [...] Team Status: Inactive Member Role Status Dates [facility] Primary Care Provider A ctive Start: June 29, 2024 End: July 03, 2024 Dr. Davis Ibarra DO Emergency Provider Active Start: June 29, 2024 End: July 03, 2024 Dr. Brenda Posadas MD Admit Provider Active Star t: June 29, 2024 End: July 03, 2024 Dr. Bernda Posadas MD Other Provider Active Star t: June 29, 2024 End: July 03, 2024 Dr. Nicole Trujillo DO Attending Provider Active S tart: June 29, 2024 End: July 03, 2024 Dr. Nichelle Mcneil MD Other Provider Active Start: June 29, 2024 End: July 03, 2024 Team Status: Active Member Role Status Dates [facility] Primary Care Provider A ctive Start: June [...] Team Status: Active Member Role Status Dates [facility] Primary Care Provider A ctive Start: July [...] Team Status: Active Member Role Status Dates [facility] Primary Care Provider A ctive Start: July [...] Team Status: Active Member Role Status Dates [facility] Primary Care Provider A ctive Start: July [...] Team Status: Inactive Member Role Status Dates [facility] Primary Care Provider A ctive Start: July [...] 2024 End: July 05, 2024 Zohreh Mckeon [facility], LEATHER ETCHER-C Primary Care Provider Activ e Start: July 05, 2024 End: July 05, 2024 Team Status: Inactive Member Role Status Dates Dr. Nicole Trujillo DO Attending Provider Active S tart: July 06, 2024 End: July 06, 2024 Dr. Nicole Trujillo DO Referring Provider Active S tart: July 06, 2024 End: July 06, 2024 [facility], LEATHER ETCHER-C Primary Care Provider Activ e Start: July 06, 2024 End: July 06, 2024 Team Status: Inactive Member Role Status Dates Dr. Nicole Trujillo DO Attending Provider Active S tart: July 07, 2024 End: July 07, 2024 Dr. Nicole Trujillo DO Referring Provider Active S tart: July 07, 2024 End: July 07, 2024 Zohreh Terence [facility], [facility] Primary Care Provider Activ e Start: July 07, 2024 End: July 07, 2024 Team Status: Inactive Member Role Status Dates Dr. Nicole Trujillo DO Attending Provider Active S tart: July 10, 2024 End: July 10, 2024 Dr. Nicole Trujillo DO Referring Provider Active S tart: July 10, 2024 End: July 10, 2024 Zohreh MIRANDA, [facility] Primary Care Provider Activ e Start: July 10, 2024 End: July 10, 2024 Team Status: Inactive Member Role Status Dates Zohreh KINGC, [facility] Primary Care Provider Activ e Start: July 11, 2024 End: July 11, 2024 Dr. Nicole Trujillo , Attending Provider Active S tart: July 11, 2024 End: July 11, 2024 Dr. Nicole Trujillo , Referring Provider Active S tart: July 11, 2024 End: July 11, 2024 Team Status: Inactive Member Role Status Dates Zohreh MIRANDA, [facility] Primary Care Provider Activ e Start: August 01, 2024 End: August 01, 2024 Dr. Riccardo Hillman , Attending Provider Active Start: August 01, 2024 End: August 01, 2024 Dr. Riccardo Hillman DO Emergency Provider Active Start: August 01, 2024 End: August 01, 2024 Team Status: Active Member Role Status Dates Zohreh MIRANDA, [facility] Primary Care Provider Activ e Start: August 26, 2024 Dr. Riccardo Ng MD Attending Provider Active S tart: August 26, 2024 Team Status: Active Member Role Status Dates Zohreh MIRANDA, [facility] Primary Care Provider Activ e Start: August 26, 2024 Dr. Vaughn Daugherty DO Emergency Provider Activ e Start: August 26, 2024 Dr. Brenda Posadas MD Admit Provider Active Star t: August 26, 2024 Dr. Brenda Posadas MD Attending Provider Active Start: August 26, 2024 Team Status: Inactive Member Role Status Dates Zohreh MIRANDA, [facility] Primary Care Provider Activ e Start: August [...] Member Role Status Dates Zohreh Terence [facility], [facility] Primary Care Provider Activ e Start: August [...] Member Role Status Dates Zohreh Terence [facility], [facility] Primary Care Provider Activ e Start: August [...] Member Role Status Dates Zohreh Terence MIRANDA, [facility] Primary Care Provider Activ e Start: August [...] Active Member Role Status Dates Zohreh MIRANDA, [facility] Primary Care Provider Activ e Start: August [...] Active Member Role Status Dates Zohreh MIRANDA, [facility] Primary Care Provider Activ e Start: August [...] Active Member Role Status Dates Zohreh MIRANDA, [facility] Primary Care Provider Activ e Start: August [...] Member Role Status Dates Zohreh Terence [facility], [facility] Primary Care Provider Activ e Start: September [...] Member Role Status Dates Zohreh Terence [facility], [facility] Primary Care Provider Activ e Start: September 01, 2024 Dr. Alli Brito MD Attending Provider Active S tart: September 01, 2024 Team Status: Active Member Role Status Dates Zohrehdmitriy K[facility], [facility] Primary Care Provider Activ e Start: September [...] Member Role Status Dates Zohreh Terence [facility], [facility] Primary Care Provider Activ e Start: August 26, 2024 Dr. Riccardo Ng MD Attending Provider Active S tart: August 26, 2024 Dr. Jeison Abrams , Referring Provider Active Start: August 26, 2024 Team Status: Active Member Role Status Dates Zohrehdmitriy MIRANDA, [facility] Primary Care Provider Activ e Start: August [...] Member Role Status Dates Zohreh Terence [facility], [facility] Primary Care Provider Activ e Start: September 05, 2024 End: September 05, 2024 Dr. Zack Card DO Emergency Provider Active Start : September 05, 2024 End: September 05, 2024 Team Status: Active Member Role Status Dates Zohreh Terence [facility], [facility] Primary Care Provider Activ e Start: September [...] Member Role Status Dates Zohreh Terence MIRANDA, [facility] Primary Care Provider Activ e Start: September 05, 2024 End: September 05, 2024 Dr. Zack Card DO Attending Provider Active Start : September 05, 2024 End: September 05, 2024 Dr. Zack Card DO Emergency Provider Active Start : September 05, 2024 End: September 05, 2024 Team Status: Active Member Role Status Dates Zohreh Terence [facility], [facility] Primary Care Provider Activ e Start: September [...] Active Member Role Status Dates Zohrehdmitriy [facility], [facility] Primary Care Provider Activ e Start: September [...] Inactive Member Role Status Dates Zohreh Mckeon [facility], [facility] Primary Care Provider Activ e Start: September [...] Active Member Role Status Dates Zohreh KING, [facility] Primary Care Provider Activ e Start: September [...] Active Member Role Status Dates Zohreh KING, [facility] Primary Care Provider Activ e Start: September 11, 2024 Dr. Davis Ibarra DO Emergency Provider Active Start: September 11, 2024 Dr. Rosaura Crane MD Admit Provider Active St art: September 11, 2024 Dr. Rosaura Crane MD Other Provider Active St art: September 11, 2024 Dr. Brneda Posadas MD Attending Provider Active Start: September 11, 2024 Dr. Brenda Posadas MD Other Provider Active Star t: September 11, 2024 Dr. Nichelle Mcneil MD Other Provider Active Start: September 11, 2024 Team Status: Active Member Role Status Dates Zohreh MIRANDA, [facility] Primary Care Provider Activ e Start: September [...] Active Member Role Status Dates Zohreh MIRANDA, [facility] Primary Care Provider Activ e Start: September [...] Active Member Role Status Dates Zohreh MIRANDA, [facility] Primary Care Provider Activ e Start: September [...] Active Member Role Status Dates Zohreh MIRANDA, [facility] Primary Care Provider Activ e Start: September [...] Active Member Role Status Dates Zohreh MIRANDA, [facility] Primary Care Provider Activ e Start: September [...] Inactive Member Role Status Dates Zohreh MIRANDA, [facility] Primary Care Provider Activ e Start: September [...] Member Role Status Dates Zohreh Terence [facility], [facility] Primary Care Provider Activ e Start: September 21, 2024 End: September 21, 2024 Dr. Riccardo Hillman , Emergency Provider Active Start: September 21, 2024 End: September 21, 2024 Team Status: Inactive Member Role Status Dates Zohreh Terence [facility], [facility] Primary Care Provider Activ e Start: September 21, 2024 End: September 21, 2024 Dr. Riccardo Hillman DO Attending Provider Active Start: September 21, 2024 End: September 21, 2024 Dr. Riccardo Hillman DO Emergency Provider Active Start: September 21, 2024 End: September 21, 2024 Team Status: Inactive Member Role Status Dates Zohreh Terence [facility], [facility] Primary Care Provider Activ e Start: September 29, 2024 End: September 29, 2024 Dr. Zack Card , Emergency Provider Active Start : September 29, 2024 End: September 29, 2024 Team Status: Active Member Role/Relationship Status Dates Zohreh Mckeon [facility], [facility] Primary Care Provider Activ e Team Status: Active Member Role/Relationship Status Dates Zohreh Mckeon [facility], [facility] Primary Care Provider Activ e Start: August 26, 2024 Dr. Riccardo Ng MD Attending Provider Active S tart: August 26, 2024 Dr. Jeison Abrams , Referring Provider Active Start: August 26, 2024 Team Status: Inactive Member Role/Relationship Status Dates Zohreh Terence [facility], [facility] Primary Care Provider Activ e Start: August [...] Active Member Role/Relationship Status Dates Zohreh MIRANDA, [facility] Primary Care Provider Activ e Start: August [...] Active Member Role/Relationship Status Dates Zohreh MIRANDA, [facility] Primary Care Provider Activ e Start: August [...] Active Member Role/Relationship Status Dates Zohreh MIRANDA, [facility] Primary Care Provider Activ e Start: August [...] Active Member Role/Relationship Status Dates Zohreh KING, [facility] Primary Care Provider Activ e Start: August [...] Active Member Role/Relationship Status Dates Zohrehdmitriy KING, [facility] Primary Care Provider Activ e Start: August [...] Active Member Role/Relationship Status Dates Zohrehdmitriy MIRANDA, [facility] Primary Care Provider Activ e Start: August [...] Active Member Role/Relationship Status Dates Zohreh KINGC, [facility] Primary Care Provider Activ e Start: September [...] Active Member Role/Relationship Status Dates Zohrehlurdes KINGC, [facility] Primary Care Provider Activ e Start: September 01, 2024 Dr. Alli Brito MD Attending Provider Active S tart: September 01, 2024 Team Status: Active Member Role/Relationship Status Dates Zohrehlurdes [facility], [facility] Primary Care Provider Activ e Start: September [...] Inactive Member Role/Relationship Status Dates Zohreh MIRANDA, [facility] Primary Care Provider Activ e Start: September 05, 2024 End: September 05, 2024 Dr. Zack Card DO Attending Provider Active Start : September 05, 2024 End: September 05, 2024 Dr. Zack Card DO Emergency Provider Active Start : September 05, 2024 End: September 05, 2024 Team Status: Active Member Role/Relationship Status Dates Zohreh KING, [facility] Primary Care Provider Activ e Start: September [...] Active Member Role/Relationship Status Dates Zohreh KING, [facility] Primary Care Provider Activ e Start: September [...] Active Member Role/Relationship Status Dates Zohreh KING, [facility] Primary Care Provider Activ e Start: September [...] Inactive Member Role/Relationship Status Dates Zohreh Mckeon [facility], [facility] Primary Care Provider Activ e Start: September [...] Active Member Role/Relationship Status Dates Zohreh MIRANDA, [facility] Primary Care Provider Activ e Start: September [...] Active Member Role/Relationship Status Dates Zohreh MIRANDA, [facility] Primary Care Provider Activ e Start: September [...] Active Member Role/Relationship Status Dates Zohreh MIRANDA, [facility] Primary Care Provider Activ e Start: September [...] Active Member Role/Relationship Status Dates Zohreh Mckeon [facility], [facility] Primary Care Provider Activ e Start: September [...] Active Member Role/Relationship Status Dates Zohreh Mckeon [facility], [facility] Primary Care Provider Activ e Start: September [...] Active Member Role/Relationship Status Dates Zohreh Mckeon [facility], [facility] Primary Care Provider Activ e Start: September [...] Active Member Role/Relationship Status Dates Zohreh KINGC, [facility] Primary Care Provider Activ e Start: September [...] Inactive Member Role/Relationship Status Dates Zohreh KINGC, [facility] Primary Care Provider Activ e Start: September 21, 2024 End: September 21, 2024 Dr. Riccardo Hillman DO Attending Provider Active Start: September 21, 2024 End: September 21, 2024 Dr. Riccardo Hillman DO Emergency Provider Active Start: September 21, 2024 End: September 21, 2024 Team Status: Inactive Member Role/Relationship Status Dates Zohreh Mckeon [facility], [facility] Primary Care Provider Activ e Start: September 29, 2024 End: September 29, 2024 Dr. Zack Card DO Attending Provider Active Start : September 29, 2024 End: September 29, 2024 Dr. Zack Card DO Emergency Provider Active Start : September 29, 2024 End: September 29, 2024 Team Status: Inactive Member Role/Relationship Status Dates Zohreh Mckeon [facility], [facility] Primary Care Provider Activ e Start: December [...] or prosecute any alcohol or drug abuse patient.[facility] the event this information is protected by the Federal Confidentiality of Alcohol and Drug Abuse Patient Records regulations: The Federal rules restrict any use of the information to criminally investigate or prosecute any alcohol or drug abuse patient.[facility] the event this information is protected by the Federal Confidentiality of Alcohol and Drug Abuse Patient Records regulations: The Federal rules restrict any use of the information to criminally investigate or prosecute any alcohol or drug abuse patient.[facility] the event this information is protected by the Federal Confidentiality of Alcohol and Drug Abuse Patient Records regulations: The Federal rules restrict any use of the information to criminally investigate or prosecute any alcohol or drug abuse patient.[facility] the event this information is protected by the Federal Confidentiality of Alcohol and Drug Abuse Patient Records regulations: The Federal rules restrict any use of the information to criminally investigate or prosecute any alcohol or drug abuse patient.[facility] the event this information is protected by the Federal Confidentiality of Alcohol and Drug Abuse Patient Records regulations: The Federal rules restrict any use of the information to criminally investigate or prosecute any alcohol or drug abuse patient.[facility] the event this information is protected by the Federal Confidentiality of Alcohol and Drug Abuse Patient Records regulations: The Federal rules restrict any use of the information to criminally investigate or prosecute any alcohol or drug abuse patient.[facility] the event this information is protected by the Federal Confidentiality of Alcohol and Drug Abuse Patient Records regulations: The Federal rules restrict any use of the information to criminally investigate or prosecute any alcohol or drug abuse patient.[facility] the event this information is protected by the Federal Confidentiality of Alcohol and Drug Abuse Patient Records regulations: The Federal rules restrict any use of the information to criminally investigate or prosecute any alcohol or drug abuse patient.[facility]In the event this information is protected by the Federal Confidentiality of Alcohol and Drug Abuse Patient Records regulations: The Federal rules restrict any use of the information to criminally investigate or prosecute any alcohol or drug abuse patient.[facility] Reason for Visit (unrecogniz ed section and content) Reason Comments Appointment Radiology XR Reason Comments Patient Question Abscess Reason Comments Patient Update Reason Comments Contact Center Call Patient Update PHYSICIAN INSTRUCTIONS Reason Comments returned prison call Patient Update Reason Comments Orders AG [...] BE BASED ON THE PRIMARY CLINICAL RECORDS. [email or web address] [facility]. provides no warranty or guarantee of the accuracy or completeness of information in this document.
--- OUTSIDE RECORDS SUMMARY | 2025-01-29 20:46 | XMS RPT_ITS | CCD ---
Author Organization [facility] CliniSywa Care Team Providers Care Valve Inspector Name Role Phone FERCHO OSBORNE Admitting Unavailable [...] [phone] Dr. Riccardo Ng Other Provider [facility], Nathaly Lainez Primary Care Pro vider Dr. Nathaly Lainez Primary Care Provider Dr. Nathaly Lainez Referring Provider MARTIN Stephen Attending Provider [phone] Dr. Alli Brito Attending Provider [phone] MARTIN Montero Attending Provider Dr. Riccardo Ng Attending Provider [phone] Riccardo Ng Referring Provider [phone] Riccardo Ng Other Provider [facility] [place] Primary Care Pro vider Dr. Nathaly Lainez Primary Care Provider Dr. Nathaly Lainez Referring Provider [facility], [place]z Referring Provid er MD [...] [phone] Dr. Riccardo Ng Other Provider [facility] [place] Primary Care Pro vider MARTIN Montero Referring Provider [phone] [facility] [place] Referring Provid er MD Jeremiah Rawls Emergency Provider Dr. Jeison Forde Admit Provider Dr. Jeison Forde Referring Provider Dr. Jeison Forde Other Provider Dr. Sabina Rosenberg Attending Provider Dr. Sabina Rosenberg Other Provider Dr. Sanjiv Alcantar Attending Provider MARTIN Mathis Attending Provider MARTIN Mathis Referring Provider Dr. Yvette Hanley Referring Provider [facility] Primary Care Pro vider Dr. Riccardo Ng Attending Provider Dr. Yvette Hanley Referring Provider MARTIN Mathis Referring Provider Dr. Yvette Hanley Emergency Provider Dr. Sabina Rosenberg Admit Provider Dr. Sabina Rosenberg Attending Provider Dr. Sabina Rosenberg Other Provider [facility] Primary Care Pro vider Dr. Zack Card Emergency Provider Dr. Brandon Adames Admit Provider Dr. Brandon Adames Attending Provider Dr. Brandon Adames Other Provider [facility] Primary Care Pro vider Dr. Yvette Hanley Emergency Provider Dr. Sabina Rosenberg Admit Provider Dr. Sabina Rosenberg Attending Provider Dr. Sabina Rosenberg Other Provider Dr. Zack Card Emergency Provider Dr. Brandon Adames Admit Provider Dr. Brandno Adames Attending Provider Dr. Brandon Adames Other Provider [facility] Referring Provid er Dr. Alli Brito Attending Provider Roof SHANK ARCHER, SHANK ARCHER-Gideon Rashid Attending Provider Dr. Lino Sousa Attending Provider [facility] Primary Care Pro vider Dr. Yvette Hanley Emergency Provider Dr. Sabina Rosenberg Admit Provider Dr. Sabina Rosenberg Attending Provider Dr. Sabina Rosenberg Other Provider [facility] Primary Care Pro vider Dr. Sabina Rosenberg Attending Provider Dr. Sabina Rosenberg Other Provider Dr. Ananda Coyle Emergency Provider Dr. Lei Justin Admit Provider Dr. Lei Justin Other Provider Dr. Alli Brito Other Provider Dr. Brenda Posadas Other Provider Dr. Brenda Posadas Attending Provider Dr. Latricia Aaron Attending Provider Unavailable Dr. Latricia Aaron Other Provider Unavailable Dr. Lei Justin Referring Provider [facility] Primary Care Pro vider Dr. Riccardo Hillman Emergency Provider Dr. Talisha Boykin Admit Provider Dr. Talisha Boykin Other Provider Dr. Jeremy Alexander Attending Provider Benjamin, Dr. Luna Other Provider Dr. Moody Gallagher Other Provider Ashutosh, Dr. Talisha Landry Attending Provider Benjamin, Dr. Luna Attending Provider [facility], [facility] Primary Care Pro vider Dr. [...] Provider Ashutosh, Dr. Talisha Landry [facility] Talisha Landry Attending Provider Korjaycee, Dr. Talisha Landry Other Provider Benjamin, Dr. Luna Other Provider Dr. Jeremy Alexander Attending Provider Dr. Moody Gallagher Other Provider Terence SHANK ARCHER, Zohreh Unavailable [facility], [facility] Care Provider [facility], [facility] Primary Care Pro vider [facility], [facility] Care Provider No, Pcp Primary Care Provider [...] Attending Unavailabl e DIYA MAY Consulting Unavailable [facility] Primary Care Pro vider Jeremiah Rawls MD [...] Dr. Nicole Trujillo DO Attending Provider Tarun HERNANDZE, Dr. Mix Other Provider Dr. Nicole Trujillo DO Referring Provider Terence SHANK ARCHER-C, Zohreh Primary Care Provider Dr. Riccardo Hillman DO Attending Provider Dr. Riccardo Hillman DO Emergency Provider Dr. Riccardo Ng MD Attending Provider Dr. Vaughn Daugherty DO Emergency Provider Cuauhtemoc HERNANDEZ, Dr. Gutierrez Attending Provider [facility] Primary Care Pro vider Dr. Nicole Trujillo [...] Chandni HERNANDEZ, Dr. Amish Bashir Other Provider [facility] Primary Care Provider Cuauhtemoc HERNANDEZ, Dr. Gutierrez [...] Dr. Derek Paniagua MD Emergency Provider Terence [facility] Primary Care Unavailabl e Derek Paniagua Referring Unavailable Derek Paniagua Attending Unavailable [facility] Unavailabl Zack Car Attending Unavailable Talisha Boykin Attending Unavailable [facility], [facility] Unavailable Rosaura Crane Admitting Unavailable Rosaura Crane Consulting Unavailable Nicole Trujillo Admitting Unavailable Nicole Trujillo Consulting Unavailable [facility], [facility] Unavailable Talisha Boykin Attending Unavailable Jeremy Alexander Consulting Unavailable Nichelle Mcneil Attending Unavailable [facility] Unavailabl e Nichelle Mcneil Referring Unavailable [facility] Unavailabl e Nichelle Mcneil Attending Unavailable Nichelle Mcneil Referring Unavailable Ronnie Nicole Referring Unavailable Nicole Trujillo Attending Unavailable [facility] Unavailabl e Ronnie Nicole Referring Unavailable Nicole Trujillo Attending Unavailable [facility] Unavailable Jeremiah Rawls Attending Unavailable Nicole Trujillo Attending Unavailable Ronnie Nicole Referring Unavailable [facility] Unavailabl e Ronnie, Nicole Referring Unavailable Roger Trujilloyn Attending Unavailable [facility] Unavailabl e Ronnie, Nicole Referring Unavailable Roger Trujilloyn Attending Unavailable [facility] Unavailabl e Ronnie Nicole Referring Unavailable Nicole Trujillo Attending Unavailable [facility], [facility] Unavailable [facility] UnavailZack Edward Attending Unavailable Nichelle Mcneil Attending Unavailable [facility] Unavailabl e Nichelle Mcneil Referring Unavailable Nichelle Mcneil Attending Unavailable [facility] Unavailabl e Tarun Nichelle Referring Unavailable Nichelle Mcneil Attending Unavailable [facility] Unavailabl e Nichelle Mcneil Referring Unavailable Nicole Trujillo Attending Unavailable Brenda Posadas Admitting Unavailable [facility] Unavailabl e Brenda Posadas Consulting Unavailable Riccardo Ng Consulting Unavailable Ronnie Nicole Consulting Unavailable [facility] Unavailabl Rosaura Dominguez Admitting Unavailable Latricia Aaron Attending Unavailable Rosaura Crane Consulting Unavailable Nichelle Mcneil Consulting Unavailable Brenda Posadas Consulting Unavailable Amish Tariq Consulting Unavailable Latricia Aaron Consulting Unavailable Kotsonis, Brandon F Consulting Unavailable Kotseloisas, Brandon F Admitting Unavailable [facility] Unavailable Jeremy Alexander Attending Unavailable Jeremy Alexander Consulting Unavailable Patriciaam Talisha Gris Attending Unavailable [facility] Unavailable White, Rosaura L Consulting Unavailable White, Rosaura L Admitting Unavailable Koram, Talisha Gris Consulting Unavailable [facility] Unavailabl Latricia Rust Attending Unavailable White, Rosaura L Consulting Unavailable White, Rosaura L Admitting Unavailable Nichelle Mcneil Consulting Unavailable PosadasBrenda Consulting Unavailable Amish Tariq Consulting Unavailable Brenda Posadas Attending Unavailable [facility] Unavailabl e White, Rosaura L Consulting Unavailable White, Rosaura L Admitting Unavailable Brenda Posadas Attending Unavailable Brenda Posadas Consulting Unavailable Rosaura Crane L Attending Unavailable Latricia Aaron Attending Unavailable Latricia Aaron Consulting Unavailable Riccardo Ng Attending Unavailable Riccardo Ng Referring Unavailable Nicole Trujillo Attending Unavailable Nicole Trujillo Admitting Unavailable Nicole Trujillo Consulting Unavailable [facility] Unavailable [facility] Unavailabl Alli Head Attending Unavailable [facility] Referring Unavailable Bina Saldana Attending Unavailable Riccardo Ng Attending Unavailable [facility] UnavailJeison Garcia Referring Unavailable Nicole Trujillo Attending Unavailable Brenda Posadas Admitting Unavailable Brenda Posadas Consulting Unavailable [facility] Unavailable Nichelle Mcneil Consulting Unavailable Nicole Trujillo Consulting Unavailable Nicole Trujillo Referring Unavailable Nicole Trujillo Attending Unavailable [facility] Unavailabl e Nichelle Mcneil Referring Unavailable Nichelle Mcneil Attending Unavailable Nichelle Mcneil Attending Unavailable [facility] Unavailabl e Nichelle Mcneil Referring Unavailable Gigionis, Brandon F Admitting Unavailable GigionisSonuBrandon F Consulting Unavailable [facility] Unavailable Benjamin, Jeremy Attending Unavailable Posadas, Brenda Admitting Unavailable Posadas, Brenda Consulting Unavailable Latricia Aaron Attending Unavailable [facility] UnavailRiccardo Bourne Consulting Unavailable Nicole Trujillo Consulting Unavailable Riccardo Hillman Attending Unavailable [facility] Unavailabl e Nicole Trujillo Attending Unavailable Posadas, Brenda Admitting Unavailable [facility], [facility] Unavailable Cuauhtemoc, Brenda Consulting Unavailable Nichelle Mcneil Consulting Unavailable Nicole Trujillo Referring Unavailable Nicole Trujillo Attending Unavailable [facility] Unavailabl e [facility] UnavailRiccardo Hutchinson Attending Unavailable Brandon Adames Attending Unavailable Posadas, Brenda Admitting Unavailable Posadas, Brenda Consulting Unavailable [facility] Unavailabl Brenda Vasquez Attending Unavailable Posadas, Brenda Admitting Unavailable [facility], [facility] Unavailable Posadas, Brenda Consulting Unavailable Brenda Posadas Attending Unavailable Talisha Boykin Attending Unavailable Jeremy Alexander Consulting Unavailable Rosie Boykina Gris Consulting Unavailable Jeremy Alexander Attending Unavailable Rosaura Crane Attending Unavailable Nichelle Mcneil Attending Unavailable [facility] UnavailNichelle Holly Referring Unavailable Allergies Allergy Classification Reported Allergen(s) Allergy Type Date of Onset Reaction(s) Facility (20 sources) Latex; Translations: [LATEX] Propensity to adverse reactions to drug (disorder) 1 Itching [facility] Other [facility] Medications Current Medications Medication Drug Class(es) [...] on above: Take 3 tablets by mo [facility] every 6 hours as needed for pain. [id number] 200 actuat albuterol 0.09 mg/actuat metered dose [...] prescriber. docusate sodium 50 mg / sennosides, prison 8.6 mg oral tablet (20 sources) Start: [...] Start: 07-25-2022 End: 01-03-2023 Insulin Glargine (Lantus Tabyb ostar U-100 Insulin) 100 unit/mL (3 mL) [...] water. 0 04/12/2022 Active polyethylene glycol 3350 03905 mg powder for oral solution (20 sources) [...] th every six hours as needed HYDROcodone-acetaminophen ([place]) 5-325 MG tablet Take 1 tablet by [...] Start: 08-21-2019 take 2 tablets by mo [facility] every four hours as needed [...] Start: 11-19-2023 End: 12-29-2023 Start: 03-27-2022 Nyamyc [id number] UNIT/GM powder APPLY THREE TIMES DAILY 0 03/27/2022 Active omeprazole 40 mg delayed rel ease oral capsule (20 sources) Proton Pump Inhibitor Start: 02-03-2023 End: 04-18-2023 Start: 01-29-2023 End: 02-27-2023 Start: 07-25-2022 End: 01-29-2023 Start: 03-17-2019 take 1 capsule by mo [facility] in the morning omeprazole (PriLOSEC) [...] Ischemic cardiomyopathy; Translations: [Atherosclerotic heart disease of unga coronary artery without angina pectoris] Onset: 8 [...] sources) Long-term current use of anticoagulant; 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] 06-19-2023 Episodic [...] and due to atherosclerosis; Translations: [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, right [...] 12-12-2024 Anion gap [Moles/Vol] 11 mmol/L 10-16 [facility] Ankle min 3 Viewson 12-13-19 25 Ankle min 3 Views Normal [facility] BUN/creatinine ratioOrdered By: Darlyn Galeano on 12-12-2024 Urea nitrogen/Creatinine [Mass ratio] 8.9 mg/mg Low 03-23 [facility] Basic Metabolic Profile (BMP )on 12-12-2024 BUN/CRE 8.9 RATIO Low 03-23 [facility] Comment on above: Performed By: #### L 500.2500 ####[facility] [address] [place], [place], [address] GAP 11 Normal 10-16 [facility] Comment on above: Performed By: #### L 500.2500 ####[facility] [address] [place], [address] Potassium [Moles/Vol] 3.9 mmol/L Normal 3.3-5.1 [facility] Comment on above: Performed By: #### L 500.2500 ####[facility] [address] [place], [address] Bedside Glucoseon 12-12-2024 FINGERSTICK GLU 346 mg/dL High 74-106 [facility] Comment on above: Result Comment: TALIA CHAMBERS OF PATIENT CARE PER NURSING PROTOCOL Performed By: #### L 501.080 ####[facility] [address] [place], [place], [address] Carbon dioxide, total [Moles /volume] in Central venous bloodOrdered By: Darlyn Galeano on 12-12-2024 CO2 [Moles/Vol] 23.3 mmol/L Normal 21.0-32.0 [facility] Comment on above: Performed By: #### L 500.2500 ####[facility] [address] [place], [address] Chloride assayOrdered By: Dipika Galeano on 12-12-2024 Chloride [Moles/Vol] 98 mmol/L Normal 98-108 [facility] Comment on above: Performed By: #### L 500.2500 ####[facility] [address] [place], [place], [address] Emergency Department Summary on 12-12-2024 Emergency Department Summary Normal [facility] Foot min 3 Viewson 5 Foot min 3 Views Normal [facility] Glomerular filtration rate ( GFR) estimation/1.73 sq m using serum, plasma, or whole bOrdered By: Darlyn Galeano on 12-12-2024 GFR/1.73 sq M.predicted among non-blacks MDRD (S/P/Bld) [Vol rate/Area] 105 mL/min/{1.73_m2} Normal >60 [facility] Comment on above: Result Comment: mL/m in/1.73m2 CKD-EPI Creatinine Equation (2020) Performed By: #### L 500.2500 ####[facility] [address] [place], [place], [address] [facility] at [facility] deOrdered By: Derek Paniagua on 12-12-2024 Glucose [Mass/Vol] 346 mg/dL High 74-106 [facility] Potassium measurement (mass/ volume)Ordered By: Darlyn Galeano on 12-12-2024 Potassium (Unsp spec) [Mass/Vol] 3.9 mmol/L 3.3-5.1 [facility] Serum creatinine measurement (mass/volume)Ordered By: Darlynneville Galeano on 12-12-2024 Creatinine [Mass/Vol] 0.66 mg/dL Low 0.70-1.20 [facility] Comment on above: Performed By: #### L 500.2500 ####[facility] [address] [place], [address] Serum glucose measurement (m ass/volume)Ordered By: Darlyn Galeano on 12-12-2024 Glucose [Mass/Vol] 327 mg/dL High 70-99 [facility] Comment on above: Performed By: #### L 500.2500 ####[facility] [address] [place], [address] Serum or plasma calcium xiomara urement (mass/volume)Ordered By: Darlyn Galeano on 12-12-2024 Calcium [Mass/Vol] 9.2 mg/dL Normal 7.6-11.0 [facility] Comment on above: Performed By: #### L 500.2500 ####[facility] [address] [place], [address] Serum or plasma urea nitroge n measurement (mass/volume)Ordered By: Darlyn Galeano on 12-12-2024 Urea nitrogen [Mass/Vol] 6 mg/dL Normal 4-19 [facility] Comment on above: Performed By: #### L 500.2500 ####[facility] [address] [place], [address] Sodium levelOrdered By: Darlyn Galeano on 12-12-2024 Sodium [Moles/Vol] 132 mmol/L Low 133-145 [facility] Comment on above: Performed By: #### L 500.2500 ####[facility] [address] [place], [address] 12 Lead EKGon 09-29-2024 12 Lead EKG Normal [facility] ALP [Catalytic activity/Vol] Ordered By: Nina Richardson on 09-29-2024 Serum or plasma alkaline phosphatase measurement 179 U/L High 35-104 [facility] ALT [Catalytic activity/Vol] Ordered By: Nina Richardson on 09-29-2024 Serum or plasma alanine aminotransferase (ALT) measurement 12 U/L <35 [facility] Absolute lymphocyte countOrd ered By: Nina Richardson on 09-29-2024 Lymphocytes Auto (Unsp spec) [#/Vol] 0.91 10*3/uL 0.83-4.51 [facility] Absolute neutrophil countOrd ered By: Nina Richardson on 09-29-2024 Absolute neutrophil count 14.1 X10^3/uL High 2.0-7.7 [facility] Albumin [Mass/Vol]Ordered By : Nina Richardson on 09-29-2024 Serum or plasma albumin measurement (mass/volume) 3.7 g/dL 3.5-5.0 [facility] Albumin/Globulin [Mass ratio ]Ordered By: Nina Richardson on 09-29-2024 Serum or plasma albumin/globulin mass ratio 1.0 RATIO 0.9-2.4 [facility] Anion gap [Moles/Vol]Ordered By: Nina Richardson on 09-29-2024 Anion gap in Serum or Plasma 15 5-15 [facility] Anion gap in Serum or Plasma Ordered By: Nina Richardson on 09-29-2024 Anion gap [Moles/Vol] 15 mmol/L 5-15 [facility] Automated lymphocyte count a s percentage of total leukocytesOrdered By: Nina Richardson on 09-29-2024 Lymphocytes/100 WBC Auto (Unsp spec) 5.8 % Low 19-41 [facility] BUN/creatinine ratioOrdered By: Nina Richardson on 09-29-2024 Urea nitrogen/Creatinine [Mass ratio] 20.5 mg/mg High 10-20 [facility] BUN/creatinine ratio 20.5 RATIO High 10-20 [facility] Basophil percentageOrdered B y: Nina Richardson on 09-29-2024 Basophils/100 WBC (Bld) 0.4 % 0-1 [facility] Basophil percentage 0.4 % 0-1 [facility] Bedside Glucoseon 09-29-2024 FINGERSTICK GLU 382 mg/dL High 74-106 [facility] Comment on above: Result Comment: TALIA GEMENT OF PATIENT CARE PER NURSING PROTOCOL Performed By: #### L 501.080 ####[facility] [address] [place], [address] FINGERSTICK GLU 412 mg/dL High 74-106 [facility] Comment on above: Result Comment: TALIA GEMENT OF PATIENT CARE PER NURSING PROTOCOL Performed By: #### L 501.080 ####[facility] [address] [place], [address] FINGERSTICK GLU 412 mg/dL High 74-106 [facility] Comment on above: Result Comment: TALIA GEMENT OF PATIENT CARE PER NURSING PROTOCOL Performed By: #### L 501.080 ####[facility] [address] [place], [address] Beta hydroxybutyrate [Mass/V ol]Ordered By: Nina Richardson on 09-29-2024 Beta-hydroxybutyrate 1.3 mmol/L 0.0-0.3 [facility] Beta-Hydroxbytyrateon 2024 BETA-HYDROXYBUT 1.3 mmol/L Normal 0.0-0.3 [facility] Comment on above: Performed By: #### L 501.6901 ####[facility] [address] [place], [address] Beta-hydroxybutyrateOrdered By: Nina Richardson on 09-29-2024 Beta hydroxybutyrate [Mass/Vol] 1.3 mmol/L 0.0-0.3 [facility] Bilirubin Test strip Ql (U)O rdered By: Nina Richardson on 09-29-2024 Bilirubin Ql (U) Negative Negative [facility] Bilirubin, totalOrdered By: Nina Richardsno on 09-29-2024 Bilirubin [Mass/Vol] 0.90 mg/dL 0.00-1.30 [facility] Bilirubin, total 0.90 mg/dL 0.00-1.30 [facility] CBC W/Diff, Automatedon 04-2 Absolute Lymph 0.91 X10 3/uL Normal 0.83-4.51 [facility] Comment on above: Performed By: #### L 500.4050, L501.2450, L100.0100 ####[facility] [address] [place], [address] Absolute Neut 14.1 X10 3/uL High 2.0-7.7 [facility] Comment on above: Performed By: #### L 500.4050, L501.2450, L100.0100 ####[facility] [address] [place], [address] Basophils/100 WBC (Bld) 0.4 % Normal 0-1 [facility] Comment on above: Performed By: #### L 500.4050, L501.2450, L100.0100 ####[facility] [address] [place], [address] Eosinophils/100 WBC (Bld) 0.1 % Normal 0-5 [facility] Comment on above: Performed By: #### L 500.4050, L501.2450, L100.0100 ####[facility] [address] [place], [address] Erythrocyte distribution width (RBC) [Ratio] 13.2 % Normal 11.6-14.6 [facility] Comment on above: Performed By: #### L 500.4050, L501.2450, L100.0100 ####[facility] [address] [place], [address] Hematocrit (Bld) [Volume fraction] 38.0 % Normal 37-47 [facility] Comment on above: Performed By: #### L 500.4050, L501.2450, L100.0100 ####[facility] [address] [place], [address] Hemoglobin (Bld) [Mass/Vol] 12.9 g/dL Normal 12.0-15.0 [facility] Comment on above: Performed By: #### L 500.4050, L501.2450, L100.0100 ####[facility] [address] [place], [address] IG% 0.600 Normal 0.0-0.9 [facility] Comment on above: Result Comment: IG% - Immature Granulocytes (promyelocytes, myelocytes andmetamyelocytes) > 1% indicates that a LEFT SHIFT is Present. Performed By: #### L 500.4050, L501.2450, L100.0100 ####[facility] [address] [place], [address] Lymphocytes/100 WBC (Bld) 5.8 % Low 19-41 [facility] Comment on above: Performed By: #### L 500.4050, L501.2450, L100.0100 ####[facility] [address] [place], [address] MCH (RBC) [Entitic mass] 27.9 pg Normal 27.0-32.0 [facility] Comment on above: Performed By: #### L 500.4050, L501.2450, L100.0100 ####[facility] [address] [place], [address] MCHC (RBC) [Mass/Vol] 33.9 g/dL Normal 32-36 [facility] Comment on above: Performed By: #### L 500.4050, L501.2450, L100.0100 ####[facility] [address] [place], [address] MCV (RBC) [Entitic vol] 82.3 fL Normal 81-99 [facility] Comment on above: Performed By: #### L 500.4050, L501.2450, L100.0100 ####[facility] [address] [place], [address] Monocytes/100 WBC (Bld) 3.3 % Normal 0-10 [facility] Comment on above: Performed By: #### L 500.4050, L501.2450, L100.0100 ####[facility] [address] [place], [address] Neutrophils/100 WBC (Bld) 89.8 % High 47-70 [facility] Comment on above: Performed By: #### L 500.4050, L501.2450, L100.0100 ####[facility] [address] [place], [address] Nucleated RBC (Bld) [#/Vol] 0 10*3/uL Normal 0-5 [facility] Comment on above: Performed By: #### L 500.4050, L501.2450, L100.0100 ####[facility] [address] [place], [address] Platelet mean volume (Bld) [Entitic vol] 9.6 fL Normal 6.2-12.0 [facility] Comment on above: Performed By: #### L 500.4050, L501.2450, L100.0100 ####[facility] [address] [place], [address] Platelets (Bld) [#/Vol] 313 10*3/uL Normal 150-450 [facility] Comment on above: Performed By: #### L 500.4050, L501.2450, L100.0100 ####[facility] [address] [place], [address] RBC (Bld) [#/Vol] 4.62 10*6/uL Normal 4.2-5.4 [facility] Comment on above: Performed By: #### L 500.4050, L501.2450, L100.0100 ####[facility] [address] [place], [address] RDW SD 39.4 fl Normal 35.1-43.9 [facility] Comment on above: Performed By: #### L 500.4050, L501.2450, L100.0100 ####[facility] [address] [place], [address] WBC (Bld) [#/Vol] 15.7 10*3/uL High 4.4-11.0 [facility] Comment on above: Performed By: #### L 500.4050, L501.2450, L100.0100 ####[facility] [address] [place], [address] Calcium [Mass/Vol]Ordered By : Nina Richardson on 09-29-2024 Serum or plasma calcium measurement (mass/volume) 9.5 mg/dL 7.6-11.0 [facility] Carbon dioxide, total [Moles /volume] in Central venous bloodOrdered By: Nina Richardson on 09-29-2024 CO2 [Moles/Vol] 23.7 mmol/L 21.0-32.0 [facility] Carbon dioxide, total [Moles/volume] in Central venous blood 23.7 mmol/L 21.0-32.0 [facility] Chloride assayOrdered By: Es Richardson on 09-29-2024 Chloride [Moles/Vol] 97 mmol/L Low 98-108 [facility] Chloride assay 97 mmol/L Low 98-108 [facility] Clarity (U)Ordered By: Tara Richardson on 09-29-2024 Urine clarity Clear Clear [facility] Color (U)Ordered By: Billy Livingston on 09-29-2024 Urine color determination Yellow Yellow [facility] Comprehensive Metabolic Prof ilon 09-29-2024 Albumin [Mass/Vol] 3.7 g/dL Normal 3.5-5.0 [facility] Comment on above: Performed By: #### L 500.4050, L501.2450, L100.0100 ####[facility] [address] [place], [address] Albumin/Globulin [Mass ratio] 1.0 {ratio} Normal 0.9-2.4 [facility] Comment on above: Performed By: #### L 500.4050, L501.2450, L100.0100 ####[facility] [address] [place], [address] ALK PHOS 179 U/L High 35-104 [facility] Comment on above: Performed By: #### L 500.4050, L501.2450, L100.0100 ####[facility] [address] [place], [address] ALT [Catalytic activity/Vol] 12 U/L Normal <=34 [facility] Comment on above: Performed By: #### L 500.4050, L501.2450, L100.0100 ####[facility] [address] [place], [address] AST [Catalytic activity/Vol] 19 U/L Normal <=31 [facility] Comment on above: Performed By: #### L 500.4050, L501.2450, L100.0100 ####[facility] [address] [place], [address] Bilirubin [Mass/Vol] 0.90 mg/dL Normal 0.00-1.30 [facility] Comment on above: Performed By: #### L 500.4050, L501.2450, L100.0100 ####[facility] [address] [place], [address] BUN/CRE 20.5 RATIO High 10-20 [facility] Comment on above: Performed By: #### L 500.4050, L501.2450, L100.0100 ####[facility] [address] [place], [address] Calcium [Mass/Vol] 9.5 mg/dL Normal 7.6-11.0 [facility] Comment on above: Performed By: #### L 500.4050, L501.2450, L100.0100 ####[facility] [address] [place], [address] Chloride [Moles/Vol] 97 mmol/L Low 98-108 [facility] Comment on above: Performed By: #### L 500.4050, L501.2450, L100.0100 ####[facility] [address] [place], [address] CO2 [Moles/Vol] 23.7 mmol/L Normal 21.0-32.0 [facility] Comment on above: Performed By: #### L 500.4050, L501.2450, L100.0100 ####[facility] [address] [place], [address] Creatinine [Mass/Vol] 0.68 mg/dL Low 0.70-1.20 [facility] Comment on above: Performed By: #### L 500.4050, L501.2450, L100.0100 ####[facility] [address] [place], [address] ECRCL 105.00 ml/min Normal 50-250 [facility] Comment on above: Performed By: #### L 500.4050, L501.2450, L100.0100 ####[facility] [address] [place], [address] GAP 15 Normal 5-15 [facility] Comment on above: Performed By: #### L 500.4050, L501.2450, L100.0100 ####[facility] [address] [place], [address] GFR/1.73 sq M.predicted among non-blacks MDRD (S/P/Bld) [Vol rate/Area] 104 mL/min/{1.73_m2} Normal >60 [facility] Comment on above: Result Comment: mL/m in/1.73m2 CKD-EPI Creatinine Equation (2020) Performed By: #### L 500.4050, L501.2450, L100.0100 ####[facility] [address] [place], [address] Globulin (S) [Mass/Vol] 3.8 g/dL Normal 2.2-4.2 [facility] Comment on above: Performed By: #### L 500.4050, L501.2450, L100.0100 ####[facility] [address] [place], [address] Glucose [Mass/Vol] 442 mg/dL High 70-99 [facility] Comment on above: Performed By: #### L 500.4050, L501.2450, L100.0100 ####[facility] [address] [place], [address] Potassium [Moles/Vol] 3.5 mmol/L Normal 3.3-5.1 [facility] Comment on above: Performed By: #### L 500.4050, L501.2450, L100.0100 ####[facility] [address] [place], [address] Sodium [Moles/Vol] 135 mmol/L Normal 133-145 [facility] Comment on above: Performed By: #### L 500.4050, L501.2450, L100.0100 ####[facility] [address] [place], [address] T PROT 7.5 g/dL Normal 5.9-8.4 [facility] Comment on above: Performed By: #### L 500.4050, L501.2450, L100.0100 ####[facility] [address] [place], [address] Urea nitrogen [Mass/Vol] 14 mg/dL Normal 4-19 [facility] Comment on above: Performed By: #### L 500.4050, L501.2450, L100.0100 ####[facility] [address], [address] Creatinine [Mass/Vol]Ordered By: Nina Richardson on 09-29-2024 Serum creatinine measurement (mass/volume) 0.68 mg/dL Low 0.70-1.20 [facility] Emergency Department Summary on 09-29-2024 Emergency Department Summary Normal [facility] Eosinophil percentageOrdered By: Nina Richardson on 09-29-2024 Eosinophils/100 WBC (Bld) 0.1 % 0-5 [facility] Eosinophil percentage 0.1 % 0-5 [facility] Erythrocyte distribution wid th (RBC) [Ratio]Ordered By: Nina Richardson on 09-29-2024 Erythrocyte distribution width ratio 13.2 % 11.6-14.6 [facility] Erythrocyte distribution width standard deviation 39.4 fl 35.1-43.9 [facility] Erythrocyte distribution wid th ratioOrdered By: Nina Richardson on 09-29-2024 Erythrocyte distribution width (RBC) [Ratio] 13.2 % 11.6-14.6 [facility] Erythrocyte distribution wid th standard deviationOrdered By: Nina Richardson on 09-29-2024 Erythrocyte distribution width (RBC) [Ratio] 39.4 fl 35.1-43.9 [facility] Estimation of creatinine sylvain aranceOrdered By: Nina Richardson on 09-29-2024 Estimation of creatinine clearance 105.00 ml/min 50-250 [facility] GFR/1.73 sq M.predicted estephanie g non-blacks MDRD (S/P/Bld) [Vol rate/Area]Ordered By: Nina Richardson on 09-29-2024 Glomerular filtration rate (GFR) estimation/1.73 sq m using serum, plasma, or whole b 104 >60 [facility] Glomerular filtration rate ( GFR) estimation/1.73 sq m using serum, plasma, or whole bOrdered By: Nina Richardson on 09-29-2024 GFR/1.73 sq M.predicted among non-blacks MDRD (S/P/Bld) [Vol rate/Area] 104 mL/min/{1.73_m2} >60 [facility] Glucose Ql (U)Ordered By: Es Richardson on 09-29-2024 Urine glucose detection 1000 mg/dl High Normal [facility] Glucose [Mass/Vol]Ordered By : Nina Richardson on 09-29-2024 Serum glucose measurement (mass/volume) 442 mg/dL High 70-99 [facility] Glucose measurement at bedsi deOrdered By: Zack Card on 09-29-2024 Glucose [Mass/Vol] 382 mg/dL High 74-106 [facility] Glucose measurement at bedside 382 mg/dL High 74-106 [facility] Hematocrit Auto (Bld) [Volum e fraction]Ordered By: Nina Richardson on 09-29-2024 Hematocrit (Bld) [Volume fraction] 38.0 % 37-47 [facility] Automated blood hematocrit (percentage) 38.0 % 37-47 [facility] Hemoglobin measurementOrdere d By: Nina Richardson on 09-29-2024 Hemoglobin (Bld) [Mass/Vol] 12.9 g/dL 12.0-15.0 [facility] Hemoglobin measurement 12.9 g/dL 12.0-15.0 [facility] Immature granulocytes/100 WB C Auto (Bld)Ordered By: Nina Richardson on 09-29-2024 Immature granulocytes/100 WBC (Bld) 0.600 % 0.0-0.9 [facility] Automated immature granulocyte percentage 0.600 % 0.0-0.9 [facility] Ketones Test strip Ql (U)Ord ered By: Nina Richardson on 09-29-2024 Ketones Ql (U) 15 mg/dl High Negative [facility] Urine ketones detection by test strip 15 mg/dl High Negative [facility] Lipaseon 09-29-2024 Lipase [Catalytic activity/Vol] 30 U/L Normal 13-75 [facility] Comment on above: Result Comment: Gege edgar note:LIPASE revised reference range effective 22.New Lipase methodology. Expected to produce lower valuesthan the previous assay method.NEW Reference Range: 13 - 75 U/L Performed By: #### L 500.4050, L501.2450, L100.0100 ####[facility] [address] [place], [address] Lipase measurementOrdered By : Nina Richardson on 09-29-2024 Lipase measurement 30 U/L 13-75 [facility] Lymphocytes Auto (Unsp spec) [#/Vol]Ordered By: Nina Richardson on 09-29-2024 Absolute lymphocyte count 0.91 X10^3/uL 0.83-4.51 [facility] Lymphocytes/100 WBC Auto (Un sp spec)Ordered By: Nina Richardson on 09-29-2024 Automated lymphocyte count as percentage of total leukocytes 5.8 % Low 19-41 [facility] MCV (RBC) [Entitic vol]Order ed By: Nina Richardson on 09-29-2024 MCV (mean corpuscular volume) determination 82.3 fL 81-99 [facility] MCV (mean corpuscular volume ) determinationOrdered By: Nina Richardson on 09-29-2024 MCV (RBC) [Entitic vol] 82.3 fL 81-99 [facility] Mean corpuscular hemoglobin (MCH) determinationOrdered By: Nina Richardson on 09-29-2024 MCH (RBC) [Entitic mass] 27.9 pg 27.0-32.0 [facility] Mean corpuscular hemoglobin (MCH) determination 27.9 pg 27.0-32.0 [facility] Mean corpuscular hemoglobin concentration (MCHC) determinationOrdered By: Nina Richardson on 09-29-2024 Mean corpuscular hemoglobin concentration (MCHC) determination 33.9 g/dL 32-36 [facility] Mean platelet volume determi nationOrdered By: Nina Richardson on 09-29-2024 Mean platelet volume determination 9.6 fl 6.2-12.0 [facility] Monocyte percentageOrdered B y: Nina Richardson on 09-29-2024 Monocytes/100 WBC (Bld) 3.3 % 0-10 [facility] Monocyte percentage 3.3 % 0-10 [facility] Mucus LM Ql (Urine sed)Order ed By: Nina Richardson on 09-29-2024 Mucus Ql (Urine sed) 0 SEEN /hpf [facility] Neutrophil percentageOrdered By: Nina Richardson on 09-29-2024 Neutrophils/100 WBC (Bld) 89.8 % High 47-70 [facility] Neutrophil percentage 89.8 % High 47-70 [facility] Nitrite Test strip Ql (U)Ord ered By: Nina Richardson on 09-29-2024 Nitrite Ql (U) Negative Negative [facility] No Panel InformationOrdered By: Nina Richardson on 09-29-2024 19 U/L <32 [facility] Nucleated red blood cell per centageOrdered By: Nina Richardson on 09-29-2024 Nucleated red blood cell percentage 0 % 0-5 [facility] Platelet countOrdered By: Es Richardson on 09-29-2024 Platelets (Bld) [#/Vol] 313 10*3/uL 150-450 [facility] Platelet count 313 K/mm3 150-450 [facility] Potassium (Unsp spec) [Mass/ Vol]Ordered By: Nina Richardson on 09-29-2024 Potassium measurement (mass/volume) 3.5 mmol/L 3.3-5.1 [facility] Potassium measurement (mass/ volume)Ordered By: Nina Richardson on 09-29-2024 Potassium (Unsp spec) [Mass/Vol] 3.5 mmol/L 3.3-5.1 [facility] Protein Test strip Ql (U)Ord ered By: Nina Richardson on 09-29-2024 Protein Ql (U) 100 mg/dl High Negative [facility] Urine protein assay by test strip, semi-quantitative 100 mg/dl High Negative [facility] RBC Auto (Bld) [#/Vol]Ordere d By: Nina Richardson on 09-29-2024 RBC (Bld) [#/Vol] 4.62 10*6/uL 4.2-5.4 [facility] Automated blood erythrocyte count 4.62 M/mm3 4.2-5.4 [facility] Serum creatinine measurement (mass/volume)Ordered By: Nina Richardson on 09-29-2024 Creatinine [Mass/Vol] 0.68 mg/dL Low 0.70-1.20 [facility] Serum globulin measurementOr dered By: Nina Richardson on 09-29-2024 Globulin (S) [Mass/Vol] 3.8 g/dL 2.2-4.2 [facility] Serum globulin measurement 3.8 g/dL 2.2-4.2 [facility] Serum glucose measurement (m ass/volume)Ordered By: Nina Richardson on 09-29-2024 Glucose [Mass/Vol] 442 mg/dL High 70-99 [facility] Serum or plasma alanine hamilton otransferase (ALT) measurementOrdered By: Nina Richardson on 09-29-2024 ALT [Catalytic activity/Vol] 12 U/L <35 [facility] Serum or plasma albumin xiomara urement (mass/volume)Ordered By: Nina Richardson on 09-29-2024 Albumin [Mass/Vol] 3.7 g/dL 3.5-5.0 [facility] Serum or plasma albumin/glob ulin mass ratioOrdered By: Nina Richardson on 09-29-2024 Albumin/Globulin [Mass ratio] 1.0 {ratio} 0.9-2.4 [facility] Serum or plasma alkaline sabiha sphatase measurementOrdered By: Nina Richardson on 09-29-2024 ALP [Catalytic activity/Vol] 179 U/L High 35-104 [facility] Serum or plasma calcium xiomara urement (mass/volume)Ordered By: Nina Richardson on 09-29-2024 Calcium [Mass/Vol] 9.5 mg/dL 7.6-11.0 [facility] Serum or plasma urea nitroge n measurement (mass/volume)Ordered By: Nina Richardson on 09-29-2024 Urea nitrogen [Mass/Vol] 14 mg/dL 4-19 [facility] Sodium levelOrdered By: Carissa Richardson on 09-29-2024 Sodium [Moles/Vol] 135 mmol/L 133-145 [facility] Sodium level 135 mmol/L 133-145 [facility] Specific gravity (U) [Rel de nsity]Ordered By: Nina Richardson on 09-29-2024 Urine specific gravity measurement 1.010 1.002-1.03 0 [facility] Squamous epithelial cells de tection in urine sediment by light microscopyOrdered By: Nina Richardson on 09-29-2024 Epithelial cells.squamous LM Ql (Urine sed) 0-5 SEEN /hpf - [facility] Total proteinOrdered By: Yamil Richardson on 09-29-2024 Protein [Mass/Vol] 7.5 g/dL 5.9-8.4 [facility] Total protein 7.5 g/dL 5.9-8.4 [facility] Urea nitrogen [Mass/Vol]Orde red By: Nina Richardson on 09-29-2024 Serum or plasma urea nitrogen measurement (mass/volume) 14 mg/dL 09-20 [facility] Urinalysis, Completeon 09-29 EPI,SQUAMOUS 0-5 SEEN Normal -10 [facility] Comment on above: Order Comment: CLEAN CATCH Performed By: #### L 400.0001 ####[facility] [address] [place], [place], [id number]) RBC 0-5 SEEN Normal 0-5 [facility] Comment on above: Order Comment: CLEAN CATCH Performed By: #### L 400.0001 ####[facility] [address] [facility] [address] WBC 0-5 SEEN Normal 0-5 [facility] Comment on above: Order Comment: CLEAN CATCH Performed By: #### L 400.0001 ####[facility] [address] [place], [address] BACTERIA 0 SEEN Normal None Seen [facility] Comment on above: Order Comment: CLEAN CATCH Performed By: #### L 400.0001 ####[facility] [address] [place], [address] Mucus Ql (Urine sed) 0 SEEN Normal [facility] Comment on above: Order Comment: CLEAN CATCH Performed By: #### L 400.0001 ####[facility] [address] [place], [address] Urine blood detectionOrdered By: Nina Richardson on 09-29-2024 Urine blood detection 25 /ul High Negative [facility] Urine clarityOrdered By: Yamil Richardson on 09-29-2024 Clarity (U) Clear Clear [facility] Urine color determinationOrd ered By: Nina Richardson on 09-29-2024 Color (U) Yellow Yellow [facility] Urine glucose detectionOrder ed By: Nina Richardson on 09-29-2024 Glucose Ql (U) 1000 mg/dl High Normal [facility] Urine leukocyte esterase det ection by dipstickOrdered By: Nina Richardson on 09-29-2024 Leukocyte esterase Test strip Ql (U) Negative Negative [facility] Urine pHOrdered By: Martin Richardson on 09-29-2024 pH (U) 7.0 [pH] 5.0 - 8.0 [facility] Urine sediment bacteria coun t by microscopy (number/high power field)Ordered By: Nina Richardson on 09-29-2024 Bacteria LM.HPF (Urine sed) [#/Area] 0 /[HPF] None Seen [facility] Urine sediment bacteria count by microscopy (number/high power field) 0 SEEN /hpf [facility] Urine specific gravity measu rementOrdered By: Nina Richardson on 09-29-2024 Specific gravity (U) [Rel density] 1.010 1.002-1.03 0 [facility] Urine total bilirubin detect ion by test stripOrdered By: Nina Richardson on 09-29-2024 Urine total bilirubin detection by test strip Negative Negative [facility] Urine urobilinogen measureme ntOrdered By: Nina Richardson on 09-29-2024 Urobilinogen Ql (U) Normal mg/dl Normal [facility] Urobilinogen Ql (U)Ordered B y: Nina Richardson on 09-29-2024 Urine urobilinogen measurement Normal mg/dl Normal [facility] White blood cell (WBC) count Ordered By: Nina Richardson on 09-29-2024 WBC (Bld) [#/Vol] 15.7 10*3/uL High 4.4-11.0 [facility] White blood cell (WBC) count 15.7 K/mm3 High 4.4-11.0 [facility] White blood cell countOrdere d By: Nina Richardson on 09-29-2024 White blood cell count 0-5 SEEN /hpf 0-5 [facility] White blood cell count 0-5 SEEN /hpf 5-10 [facility] pH (U)Ordered By: Nina Richardson on 09-29-2024 Urine pH 7.0 5.0 - 8.0 [facility] ALP [Catalytic activity/Vol] Ordered By: Riccardo Hillman on 09-21-2024 Serum or plasma alkaline phosphatase measurement 128 U/L High 35-104 [facility] ALT [Catalytic activity/Vol] Ordered By: Riccardo Hillman on 09-21-2024 Serum or plasma alanine aminotransferase (ALT) measurement 13 U/L <35 [facility] Absolute lymphocyte countOrd ered By: Nina Richardson on 09-21-2024 Lymphocytes Auto (Unsp spec) [#/Vol] 1.03 10*3/uL 0.83-4.51 [facility] Absolute neutrophil countOrd ered By: Nina Richardson on 09-21-2024 Absolute neutrophil count 8.9 X10^3/uL High 2.0-7.7 [facility] Albumin [Mass/Vol]Ordered By : Riccardo Hillman on 09-21-2024 Serum or plasma albumin measurement (mass/volume) 3.6 g/dL 3.5-5.0 [facility] Albumin/Globulin [Mass ratio ]Ordered By: Riccardo Hillman on 09-21-2024 Serum or plasma albumin/globulin mass ratio 1.1 RATIO 0.9-2.4 [facility] Anion gap [Moles/Vol]Ordered By: Riccardo Hillman on 09-21-2024 Anion gap in Serum or Plasma 11 5-15 [facility] Anion gap in Serum or Plasma Ordered By: Riccardo Hillman on 09-21-2024 Anion gap [Moles/Vol] 11 mmol/L 5-15 [facility] Automated lymphocyte count a s percentage of total leukocytesOrdered By: Nina Richardson on 09-21-2024 Lymphocytes/100 WBC Auto (Unsp spec) 9.8 % Low [facility] BUN/creatinine ratioOrdered By: Riccardo Hillman on 09-21-2024 Urea nitrogen/Creatinine [Mass ratio] 13.7 mg/mg 03-23 [facility] BUN/creatinine ratio 13.7 RATIO 03-23 [facility] Basophil percentageOrdered B y: Nina Richardson on 09-21-2024 Basophils/100 WBC (Bld) 0.4 % 0-1 [facility] Basophil percentage 0.4 % 0-1 [facility] Bilirubin Test strip Ql (U)O rdered By: Nina Richardson on 09-21-2024 Bilirubin Ql (U) Negative Negative [facility] Bilirubin, totalOrdered By: Riccardo Hillman on 09-21-2024 Bilirubin [Mass/Vol] 1.08 mg/dL 0.00-1.30 [facility] Bilirubin, total 1.08 mg/dL 0.00-1.30 [facility] CBC W/Diff, Automatedon 09-03 Absolute Lymph 1.03 X10 3/uL Normal 0.83-4.51 [facility] Comment on above: Performed By: #### L 100.0100, L500.4050 ####[facility] [address] [place], [address] Absolute Neut 8.9 X10 3/uL High 2.0-7.7 [facility] Comment on above: Performed By: #### L 100.0100, L500.4050 ####[facility] [address] [place], [address] Basophils/100 WBC (Bld) 0.4 % Normal 0-1 [facility] Comment on above: Performed By: #### L 100.0100, L500.4050 ####[facility] [address] [place], [address] Eosinophils/100 WBC (Bld) 0.6 % Normal 0-5 [facility] Comment on above: Performed By: #### L 100.0100, L500.4050 ####[facility] [address] [place], [address] Erythrocyte distribution width (RBC) [Ratio] 13.0 % Normal 11.6-14.6 [facility] Comment on above: Performed By: #### L 100.0100, L500.4050 ####[facility] [address] [place], [address] Hematocrit (Bld) [Volume fraction] 37.7 % Normal 37-47 [facility] Comment on above: Performed By: #### L 100.0100, L500.4050 ####[facility] [address] [place], [address] Hemoglobin (Bld) [Mass/Vol] 13.0 g/dL Normal 12.0-15.0 [facility] Comment on above: Performed By: #### L 100.0100, L500.4050 ####[facility] [address] [place], [address] IG% 0.300 Normal 0.0-0.9 [facility] Comment on above: Result Comment: IG% - Immature Granulocytes (promyelocytes, myelocytes andmetamyelocytes) > 1% indicates that a LEFT SHIFT is Present. Performed By: #### L 100.0100, L500.4050 ####[facility] [address] [place], [address] Lymphocytes/100 WBC (Bld) 9.8 % Low 19-41 [facility] Comment on above: Performed By: #### L 100.0100, L500.4050 ####[facility] [address] [place], [address] MCH (RBC) [Entitic mass] 29.0 pg Normal 27.0-32.0 [facility] Comment on above: Performed By: #### L 100.0100, L500.4050 ####[facility] [address] [place], [address] MCHC (RBC) [Mass/Vol] 34.5 g/dL Normal 32-36 [facility] Comment on above: Performed By: #### L 100.0100, L500.4050 ####[facility] [address] [place], [address] MCV (RBC) [Entitic vol] 84.0 fL Normal 81-99 [facility] Comment on above: Performed By: #### L 100.0100, L500.4050 ####[facility] [address] [place], [address] Monocytes/100 WBC (Bld) 4.3 % Normal 0-10 [facility] Comment on above: Performed By: #### L 100.0100, L500.4050 ####[facility] [address] [place], [address] Neutrophils/100 WBC (Bld) 84.6 % High 47-70 [facility] Comment on above: Performed By: #### L 100.0100, L500.4050 ####[facility] [address] [place], [address] Nucleated RBC (Bld) [#/Vol] 0 10*3/uL Normal 0-5 [facility] Comment on above: Performed By: #### L 100.0100, L500.4050 ####[facility] [address] [place], [address] Platelet mean volume (Bld) [Entitic vol] 9.3 fL Normal 6.2-12.0 [facility] Comment on above: Performed By: #### L 100.0100, L500.4050 ####[facility] [address] [place], [address] Platelets (Bld) [#/Vol] 275 10*3/uL Normal 150-450 [facility] Comment on above: Performed By: #### L 100.0100, L500.4050 ####[facility] [address] [place], [address] RBC (Bld) [#/Vol] 4.49 10*6/uL Normal 4.2-5.4 [facility] Comment on above: Performed By: #### L 100.0100, L500.4050 ####[facility] [address] [place], [address] RDW SD 39.7 fl Normal 35.1-43.9 [facility] Comment on above: Performed By: #### L 100.0100, L500.4050 ####[facility] [address] [place], [address] WBC (Bld) [#/Vol] 10.5 10*3/uL Normal 4.4-11.0 [facility] Comment on above: Performed By: #### L 100.0100, L500.4050 ####[facility] [address] [place], [address] Calcium [Mass/Vol]Ordered By : Riccardo Hillman on 09-21-2024 Serum or plasma calcium measurement (mass/volume) 9.3 mg/dL 7.6-11.0 [facility] Carbon dioxide, total [Moles /volume] in Central venous bloodOrdered By: Riccardo Hillman on 09-21-2024 CO2 [Moles/Vol] 25.8 mmol/L 21.0-32.0 [facility] Carbon dioxide, total [Moles/volume] in Central venous blood 25.8 mmol/L 21.0-32.0 [facility] Chloride assayOrdered By: Bertram Hillman on 09-21-2024 Chloride [Moles/Vol] 95 mmol/L Low 98-108 [facility] Chloride assay 95 mmol/L Low 98-108 [facility] Clarity (U)Ordered By: Tara Richardson on 09-21-2024 Urine clarity Clear Clear [facility] Color (U)Ordered By: Billy Livingston on 09-21-2024 Urine color determination Yellow Yellow [facility] Comprehensive Metabolic Prof ilon 09-21-2024 Albumin [Mass/Vol] 3.6 g/dL Normal 3.5-5.0 [facility] Comment on above: Order Comment: REDRA W. PREVIOUS SPECIMEN REJECTED DUE TOSPECIMEN BEING HEMOLYZED. 09/21/241314 Jevon Squires Performed By: #### L 500.4050, L501.2450 ####[facility] [address] [place], [address] Albumin/Globulin [Mass ratio] 1.1 {ratio} Normal 0.9-2.4 [facility] Comment on above: Order Comment: REDRA W. PREVIOUS SPECIMEN REJECTED DUE TOSPECIMEN BEING HEMOLYZED. 09/21/241314 Jevon Angeles. Performed By: #### L 500.4050, L501.2450 ####[facility] [address] [place], [address] ALK PHOS 128 U/L High 35-104 [facility] Comment on above: Order Comment: REDRA W. PREVIOUS SPECIMEN REJECTED DUE TOSPECIMEN BEING HEMOLYZED. 09/21/241314 Jevon Squires Performed By: #### L 500.4050, L501.2450 ####[facility] [address] [place], [address] ALT [Catalytic activity/Vol] 13 U/L Normal <=34 [facility] Comment on above: Order Comment: REDRA W. PREVIOUS SPECIMEN REJECTED DUE TOSPECIMEN BEING HEMOLYZED. 09/21/241314 Jevon Angeles. Performed By: #### L 500.4050, L501.2450 ####[facility] [address] [place], [address] AST [Catalytic activity/Vol] 19 U/L Normal <=31 [facility] Comment on above: Order Comment: REDRA W. PREVIOUS SPECIMEN REJECTED DUE TOSPECIMEN BEING HEMOLYZED. 09/21/24 1315 Jevon Angeles. Performed By: #### L 500.4050, L501.2450 ####[facility] [address] [place], [address] Bilirubin [Mass/Vol] 1.08 mg/dL Normal 0.00-1.30 [facility] Comment on above: Order Comment: REDRA W. PREVIOUS SPECIMEN REJECTED DUE TOSPECIMEN BEING HEMOLYZED. 09/21/245 Jevon Angeles. Performed By: #### L 500.4050, L501.2450 ####[facility] [address] [place], [address] BUN/CRE 13.7 RATIO Normal 10-20 [facility] Comment on above: Order Comment: REDRA W. PREVIOUS SPECIMEN REJECTED DUE TOSPECIMEN BEING HEMOLYZED. 09/21/245 Jevon Angeles. Performed By: #### L 500.4050, L501.2450 ####[facility] [address] [place], [address] Calcium [Mass/Vol] 9.3 mg/dL Normal 7.6-11.0 [facility] Comment on above: Order Comment: REDRA W. PREVIOUS SPECIMEN REJECTED DUE TOSPECIMEN BEING HEMOLYZED. 09/21/245 Jevon Vergarar. Performed By: #### L 500.4050, L501.2450 ####[facility] [address] [place], [address] Chloride [Moles/Vol] 95 mmol/L Low 98-108 [facility] Comment on above: Order Comment: REDRA W. PREVIOUS SPECIMEN REJECTED DUE TOSPECIMEN BEING HEMOLYZED. 09/21/24 1315 Jevon Angeles. Performed By: #### L 500.4050, L501.2450 ####[facility] [address] [place], [address] CO2 [Moles/Vol] 25.8 mmol/L Normal 21.0-32.0 [facility] Comment on above: Order Comment: REDRA W. PREVIOUS SPECIMEN REJECTED DUE TOSPECIMEN BEING HEMOLYZED. 09/21/245 Jevon Angeles. Performed By: #### L 500.4050, L501.2450 ####[facility] [address] [place], [address] Creatinine [Mass/Vol] 0.67 mg/dL Low 0.70-1.20 [facility] Comment on above: Order Comment: REDRA W. PREVIOUS SPECIMEN REJECTED DUE TOSPECIMEN BEING HEMOLYZED. 09/21/241314 Jevon Angeles. Performed By: #### L 500.4050, L501.2450 ####[facility] [address] [place], [address] ECRCL 107.12 ml/min Normal 50-250 [facility] Comment on above: Order Comment: REDRA W. PREVIOUS SPECIMEN REJECTED DUE TOSPECIMEN BEING HEMOLYZED. 09/21/241314 Jevon Squires Performed By: #### L 500.4050, L501.2450 ####[facility] [address] [place], [address] GAP 11 Normal 5-15 [facility] Comment on above: Order Comment: REDRA W. PREVIOUS SPECIMEN REJECTED DUE TOSPECIMEN BEING HEMOLYZED. 09/21/245 Jevon Angeles. Performed By: #### L 500.4050, L501.2450 ####[facility] [address] [place], [address] GFR/1.73 sq M.predicted among non-blacks MDRD (S/P/Bld) [Vol rate/Area] 105 mL/min/{1.73_m2} Normal >60 [facility] Comment on above: Order Comment: REDRA W. PREVIOUS SPECIMEN REJECTED DUE TOSPECIMEN BEING HEMOLYZED. 09/21/241314 Jevon Squires Result Comment: mL/m in/1.73m2 CKD-EPI Creatinine Equation (2020) Performed By: #### L 500.4050, L501.2450 ####[facility] [address] [place], [address] Globulin (S) [Mass/Vol] 3.3 g/dL Normal 2.2-4.2 [facility] Comment on above: Order Comment: REDRA W. PREVIOUS SPECIMEN REJECTED DUE TOSPECIMEN BEING HEMOLYZED. 09/21/241314 Jevon Angeles. Performed By: #### L 500.4050, L501.2450 ####[facility] [address] [place], [address] Glucose [Mass/Vol] 336 mg/dL High 70-99 [facility] Comment on above: Order Comment: REDRA W. PREVIOUS SPECIMEN REJECTED DUE TOSPECIMEN BEING HEMOLYZED. 09/21/241314 Jevon Squires Performed By: #### L 500.4050, L501.2450 ####[facility] [address] [place], [address] Potassium [Moles/Vol] 3.3 mmol/L Normal 3.3-5.1 [facility] Comment on above: Order Comment: REDRA W. PREVIOUS SPECIMEN REJECTED DUE TOSPECIMEN BEING HEMOLYZED. 09/21/241314 Jevon Squires Performed By: #### L 500.4050, L501.2450 ####[facility] [address] [place], [address] Sodium [Moles/Vol] 132 mmol/L Low 133-145 [facility] Comment on above: Order Comment: REDRA W. PREVIOUS SPECIMEN REJECTED DUE TOSPECIMEN BEING HEMOLYZED. 09/21/245 Jevon Vergarar. Performed By: #### L 500.4050, L501.2450 ####[facility] [address] [place], [address] T PROT 6.9 g/dL Normal 5.9-8.4 [facility] Comment on above: Order Comment: REDRA W. PREVIOUS SPECIMEN REJECTED DUE TOSPECIMEN BEING HEMOLYZED. 09/21/245 Jevon Vergarar. Performed By: #### L 500.4050, L501.2450 ####[facility] [address] [place], [address] Urea nitrogen [Mass/Vol] 9 mg/dL Normal 4-19 [facility] Comment on above: Order Comment: REDRA W. PREVIOUS SPECIMEN REJECTED DUE TOSPECIMEN BEING HEMOLYZED. 09/21/241314 Jevon Vergraar. Performed By: #### L 500.4050, L501.2450 ####[facility] [address] [place], [address] ALB Normal 3.5-5.0 [facility] Comment on above: Result Comment: This specimen has been REJECTED due to Laboratory criteria:Hemolyzed.ED STAFF has been notified of need of recollection.09/21/241313 Jevon R Stoner Performed By: #### L 100.0100, L500.4050 ####[facility] [address] [place], [address] ALK PHOS Normal 35-104 [facility] Comment on above: Result Comment: This specimen has been REJECTED due to Laboratory criteria:Hemolyzed.ED STAFF has been notified of need of recollection.09/21/241313 Jevon R Stoner Performed By: #### L 100.0100, L500.4050 ####[facility] [address] [place], [address] ALT Normal <=34 [facility] Comment on above: Result Comment: This specimen has been REJECTED due to Laboratory criteria:Hemolyzed.ED STAFF has been notified of need of recollection.09/21/244 Jevon R Stoner Performed By: #### L 100.0100, L500.4050 ####[facility] [address] [place], [address] AST Normal <=31 [facility] Comment on above: Result Comment: This specimen has been REJECTED due to Laboratory criteria:Hemolyzed.ED STAFF has been notified of need of recollection.09/21/244 Jevon R Stoner Performed By: #### L 100.0100, L500.4050 ####[facility] [address] [place], [address] BUN Normal 4-19 [facility] Comment on above: Result Comment: This specimen has been REJECTED due to Laboratory criteria:Hemolyzed.ED STAFF has been notified of need of recollection.09/21/241313 Jevon R Stoner Performed By: #### L 100.0100, L500.4050 ####[facility] [address] [place], [address] BUN/CRE Normal 10-20 [facility] Comment on above: Result Comment: This specimen has been REJECTED due to Laboratory criteria:Hemolyzed.ED STAFF has been notified of need of recollection.09/21/241313 Jevon R Stoner Performed By: #### L 100.0100, L500.4050 ####[facility] [address] [place], [address] Calcium Normal 7.6-11.0 [facility] Comment on above: Result Comment: This specimen has been REJECTED due to Laboratory criteria:Hemolyzed.ED STAFF has been notified of need of recollection.09/21/241313 Jevon R Stoner Performed By: #### L 100.0100, L500.4050 ####[facility] [address] [place], [address] CL Normal 98-108 [facility] Comment on above: Result Comment: This specimen has been REJECTED due to Laboratory criteria:Hemolyzed.ED STAFF has been notified of need of recollection.09/21/244 Jevon R Stoner Performed By: #### L 100.0100, L500.4050 ####[facility] [address] [place], [address] CO2 Normal 21.0-32.0 [facility] Comment on above: Result Comment: This specimen has been REJECTED due to Laboratory criteria:Hemolyzed.ED STAFF has been notified of need of recollection.09/21/244 Jevon R Stoner Performed By: #### L 100.0100, L500.4050 ####[facility] [address] [place], [address] CREAT,SERUM Normal 0.70-1.20 [facility] Comment on above: Result Comment: This specimen has been REJECTED due to Laboratory criteria:Hemolyzed.ED STAFF has been notified of need of recollection.09/21/241313 Jevon R Stoner Performed By: #### L 100.0100, L500.4050 ####[facility] [address] [place], [address] eGFR Normal >60 [facility] Comment on above: Result Comment: This specimen has been REJECTED due to Laboratory criteria:Hemolyzed.ED STAFF has been notified of need of recollection.09/21/241313 Jevon R Stoner Performed By: #### L 100.0100, L500.4050 ####[facility] [address] [place], [address] GAP Normal 5-15 [facility] Comment on above: Result Comment: This specimen has been REJECTED due to Laboratory criteria:Hemolyzed.ED STAFF has been notified of need of recollection.09/21/244 Jevon R Stoner Performed By: #### L 100.0100, L500.4050 ####[facility] [address] [place], [address] GLU Normal 70-99 [facility] Comment on above: Result Comment: This specimen has been REJECTED due to Laboratory criteria:Hemolyzed.ED STAFF has been notified of need of recollection.09/21/244 Jevon R Stoner Performed By: #### L 100.0100, L500.4050 ####[facility] [address] [place], [address] Potassium Normal 3.3-5.1 [facility] Comment on above: Result Comment: This specimen has been REJECTED due to Laboratory criteria:Hemolyzed.ED STAFF has been notified of need of recollection.09/21/244 Jevon R Stoner Performed By: #### L 100.0100, L500.4050 ####[facility] [address] [place], [address] T BILI Normal 0.00-1.30 [facility] Comment on above: Result Comment: This specimen has been REJECTED due to Laboratory criteria:Hemolyzed.ED STAFF has been notified of need of recollection.09/21/244 Jevon R Stoner Performed By: #### L 100.0100, L500.4050 ####[facility] [address] [place], [address] T PROT Normal 5.9-8.4 [facility] Comment on above: Result Comment: This specimen has been REJECTED due to Laboratory criteria:Hemolyzed.ED STAFF has been notified of need of recollection.09/21/244 Jevon R Stoner Performed By: #### L 100.0100, L500.4050 ####[facility] [address] [place], [address] Comprehensive Metabolic Profil Normal 133-145 [facility] Comment on above: Result Comment: This specimen has been REJECTED due to Laboratory criteria:Hemolyzed.ED STAFF has been notified of need of recollection.09/21/24 1314 Jevon Angeles Performed By: #### L 100.0100, L500.4050 ####[facility] [address] [place], [address] Creatinine [Mass/Vol]Ordered By: Riccardo Hillman on 09-21-2024 Serum creatinine measurement (mass/volume) 0.67 mg/dL Low 0.70-1.20 [facility] Emergency Department Summary on 09-21-2024 Emergency Department Summary Normal [facility] Eosinophil percentageOrdered By: Nina Richardson on 09-21-2024 Eosinophils/100 WBC (Bld) 0.6 % 0-5 [facility] Eosinophil percentage 0.6 % 0-5 [facility] Erythrocyte distribution wid th (RBC) [Ratio]Ordered By: Nina Richardson on 09-21-2024 Erythrocyte distribution width ratio 13.0 % 11.6-14.6 [facility] Erythrocyte distribution width standard deviation 39.7 fl 35.1-43.9 [facility] Erythrocyte distribution wid th ratioOrdered By: Nina Richardson on 09-21-2024 Erythrocyte distribution width (RBC) [Ratio] 13.0 % 11.6-14.6 [facility] Erythrocyte distribution wid th standard deviationOrdered By: Nina Richardson on 09-21-2024 Erythrocyte distribution width (RBC) [Ratio] 39.7 fl 35.1-43.9 [facility] Estimation of creatinine sylvain aranceOrdered By: Riccardo Hillman on 09-21-2024 Estimation of creatinine clearance 107.12 ml/min 50-250 [facility] GFR/1.73 sq M.predicted estephanie g non-blacks MDRD (S/P/Bld) [Vol rate/Area]Ordered By: Riccardo Hillman on 09-21-2024 Glomerular filtration rate (GFR) estimation/1.73 sq m using serum, plasma, or whole b 105 >60 [facility] Glomerular filtration rate ( GFR) estimation/1.73 sq m using serum, plasma, or whole bOrdered By: Riccardo Hillman on 09-21-2024 GFR/1.73 sq M.predicted among non-blacks MDRD (S/P/Bld) [Vol rate/Area] 105 mL/min/{1.73_m2} >60 [facility] Glucose Ql (U)Ordered By: Es Richardson on 09-21-2024 Urine glucose detection 1000 mg/dl High Normal [facility] Glucose [Mass/Vol]Ordered By : Riccardo Hillman on 09-21-2024 Serum glucose measurement (mass/volume) 336 mg/dL High 70-99 [facility] Hematocrit Auto (Bld) [Volum e fraction]Ordered By: Nina Richardson on 09-21-2024 Hematocrit (Bld) [Volume fraction] 37.7 % 37-47 [facility] Automated blood hematocrit (percentage) 37.7 % 37-47 [facility] Hemoglobin measurementOrdere d By: Nina Richardson on 09-21-2024 Hemoglobin (Bld) [Mass/Vol] 13.0 g/dL 12.0-15.0 [facility] Hemoglobin measurement 13.0 g/dL 12.0-15.0 [facility] Immature granulocytes/100 WB C Auto (Bld)Ordered By: Nina Richardson on 09-21-2024 Immature granulocytes/100 WBC (Bld) 0.300 % 0.0-0.9 [facility] Automated immature granulocyte percentage 0.300 % 0.0-0.9 [facility] Ketones Test strip Ql (U)Ord ered By: Nina Richardson on 09-21-2024 Ketones Ql (U) Negative Negative [facility] Lipaseon 09-21-2024 Lipase [Catalytic activity/Vol] 16 U/L Normal 13-75 [facility] Comment on above: Order Comment: REUBEN No. PREVIOUS SPECIMEN REJECTED DUE TOSPECIMEN BEING HEMOLYZED. 09/21/24 1315 Jevon Squires Result Comment: Gege edgar note:LIPASE revised reference range effective 22.New Lipase methodology. Expected to produce lower valuesthan the previous assay method.NEW Reference Range: 13 - 75 U/L Performed By: #### L 500.4050, L501.2450 ####[facility] [address] [place], [address] Lipase measurementOrdered By : Riccardo Hillman on 09-21-2024 Lipase measurement 16 U/L 13-75 [facility] Lymphocytes Auto (Unsp spec) [#/Vol]Ordered By: Nina Richardson on 09-21-2024 Absolute lymphocyte count 1.03 X10^3/uL 0.83-4.51 [facility] Lymphocytes/100 WBC Auto (Un sp spec)Ordered By: Nina Richardson on 09-21-2024 Automated lymphocyte count as percentage of total leukocytes 9.8 % Low 19-41 [facility] MCV (RBC) [Entitic vol]Order ed By: Nina Richardson on 09-21-2024 MCV (mean corpuscular volume) determination 84.0 fL 81-99 [facility] MCV (mean corpuscular volume ) determinationOrdered By: Nina Richardson on 09-21-2024 MCV (RBC) [Entitic vol] 84.0 fL 81-99 [facility] Mean corpuscular hemoglobin (MCH) determinationOrdered By: Nina Richardson on 09-21-2024 MCH (RBC) [Entitic mass] 29.0 pg 27.0-32.0 [facility] Mean corpuscular hemoglobin (MCH) determination 29.0 pg 27.0-32.0 [facility] Mean corpuscular hemoglobin concentration (MCHC) determinationOrdered By: Nina Richardson on 09-21-2024 Mean corpuscular hemoglobin concentration (MCHC) determination 34.5 g/dL 32-36 [facility] Mean platelet volume determi nationOrdered By: Nina Richardson on 09-21-2024 Mean platelet volume determination 9.3 fl 6.2-12.0 [facility] Microscopic analysis of urin e for red blood cells (RBC)Ordered By: Nina Richardson on 09-21-2024 Microscopic analysis of urine for red blood cells (RBC) 0-5 SEEN /hpf 5-10 [facility] Monocyte percentageOrdered B y: Nina Richardson on 09-21-2024 Monocytes/100 WBC (Bld) 4.3 % 0-10 [facility] Monocyte percentage 4.3 % 0-10 [facility] Mucus LM Ql (Urine sed)Order ed By: Nina Richardson on 09-21-2024 Mucus Ql (Urine sed) 0 SEEN /hpf [facility] Neutrophil percentageOrdered By: Nina Richardson on 09-21-2024 Neutrophils/100 WBC (Bld) 84.6 % High 47-70 [facility] Neutrophil percentage 84.6 % High 47-70 [facility] Nitrite Test strip Ql (U)Ord ered By: Nina Richardson on 09-21-2024 Nitrite Ql (U) Negative Negative [facility] No Panel InformationOrdered By: Riccardo Hillman on 09-21-2024 19 U/L <32 [facility] Nucleated red blood cell per centageOrdered By: Nina Richardson on 09-21-2024 Nucleated red blood cell percentage 0 % 0-5 [facility] Platelet countOrdered By: Es Richardson on 09-21-2024 Platelets (Bld) [#/Vol] 275 10*3/uL 150-450 [facility] Platelet count 275 K/mm3 150-450 [facility] Potassium (Unsp spec) [Mass/ Vol]Ordered By: Riccardo Hillman on 09-21-2024 Potassium measurement (mass/volume) 3.3 mmol/L 3.3-5.1 [facility] Potassium measurement (mass/ volume)Ordered By: Riccardo Hillman on 09-21-2024 Potassium (Unsp spec) [Mass/Vol] 3.3 mmol/L 3.3-5.1 [facility] Protein Test strip Ql (U)Ord ered By: Nina Richardson on 09-21-2024 Protein Ql (U) 100 mg/dl High Negative [facility] Urine protein assay by test strip, semi-quantitative 100 mg/dl High Negative [facility] RBC Auto (Bld) [#/Vol]Ordere d By: Nina Richardson on 09-21-2024 RBC (Bld) [#/Vol] 4.49 10*6/uL 4.2-5.4 [facility] Automated blood erythrocyte count 4.49 M/mm3 4.2-5.4 [facility] Serum creatinine measurement (mass/volume)Ordered By: Riccardo Hillman on 09-21-2024 Creatinine [Mass/Vol] 0.67 mg/dL Low 0.70-1.20 [facility] Serum globulin measurementOr dered By: Riccardo Hillman on 09-21-2024 Globulin (S) [Mass/Vol] 3.3 g/dL 2.2-4.2 [facility] Serum globulin measurement 3.3 g/dL 2.2-4.2 [facility] Serum glucose measurement (m ass/volume)Ordered By: Riccardo Hillman on 09-21-2024 Glucose [Mass/Vol] 336 mg/dL High 70-99 [facility] Serum or plasma alanine hamilton otransferase (ALT) measurementOrdered By: Riccardo Hillman on 09-21-2024 ALT [Catalytic activity/Vol] 13 U/L <35 [facility] Serum or plasma albumin xiomara urement (mass/volume)Ordered By: Riccardo Hillman on 09-21-2024 Albumin [Mass/Vol] 3.6 g/dL 3.5-5.0 [facility] Serum or plasma albumin/glob ulin mass ratioOrdered By: Riccardo Hillman on 09-21-2024 Albumin/Globulin [Mass ratio] 1.1 {ratio} 0.9-2.4 [facility] Serum or plasma alkaline sabiha sphatase measurementOrdered By: Riccardo Hillman on 09-21-2024 ALP [Catalytic activity/Vol] 128 U/L High 35-104 [facility] Serum or plasma calcium xiomara urement (mass/volume)Ordered By: Riccardo Hillman on 09-21-2024 Calcium [Mass/Vol] 9.3 mg/dL 7.6-11.0 [facility] Serum or plasma urea nitroge n measurement (mass/volume)Ordered By: Riccardo Hillman on 09-21-2024 Urea nitrogen [Mass/Vol] 9 mg/dL 4-19 [facility] Sodium levelOrdered By: Riccardo Hillman on 09-21-2024 Sodium [Moles/Vol] 132 mmol/L Low 133-145 [facility] Sodium level 132 mmol/L Low 133-145 [facility] Specific gravity (U) [Rel de nsity]Ordered By: Nina Richardson on 09-21-2024 Urine specific gravity measurement 1.010 1.002-1.03 0 [facility] Squamous epithelial cells de tection in urine sediment by light microscopyOrdered By: Nina Richardson on 09-21-2024 Epithelial cells.squamous LM Ql (Urine sed) 0-5 SEEN /hpf 5- [facility] Total proteinOrdered By: Guerita Hillman on 09-21-2024 Protein [Mass/Vol] 6.9 g/dL 5.9-8.4 [facility] Total protein 6.9 g/dL 5.9-8.4 [facility] Urea nitrogen [Mass/Vol]Orde red By: Riccardo Hillman on 09-21-2024 Serum or plasma urea nitrogen measurement (mass/volume) 9 mg/dL - [facility] Urinalysis, Completeon 09-21 EPI,SQUAMOUS 0-5 SEEN Normal 5- [facility] Comment on above: Order Comment: LUISA CTOR TO SPECIFY Performed By: #### L 400.0001 ####[facility] [address] [facility] [address] RBC 0-5 SEEN Normal 0-5 [facility] Comment on above: Order Comment: LUISA CTOR TO SPECIFY Performed By: #### L 400.0001 ####[facility] [address] [place], [address] YEAST RARE Normal None Seen [facility] Comment on above: Order Comment: LUISA CTOR TO SPECIFY Performed By: #### L 400.0001 ####[facility] [address] [facility] [address] BACTERIA 0 SEEN Normal None Seen [facility] Comment on above: Order Comment: LUISA CTOR TO SPECIFY Performed By: #### L 400.0001 ####[facility] [address] [place], [address] Mucus Ql (Urine sed) 0 SEEN Normal [facility] Comment on above: Order Comment: LUISA CTOR TO SPECIFY Performed By: #### L 400.0001 ####[facility] [address] [facility] [address] WBC 0 SEEN Normal 0-5 [facility] Comment on above: Order Comment: COLLE CTOR TO SPECIFY Performed By: #### L 400.0001 ####[facility] [address] [place], [address] Urine blood detectionOrdered By: Nina Richardson on 09-21-2024 Urine blood detection 25 /ul High Negative [facility] Urine clarityOrdered By: Yamil Richardson on 09-21-2024 Clarity (U) Clear Clear [facility] Urine color determinationOrd ered By: Nina Richardson on 09-21-2024 Color (U) Yellow Yellow [facility] Urine glucose detectionOrder ed By: Nina Richardson on 09-21-2024 Glucose Ql (U) 1000 mg/dl High Normal [facility] Urine leukocyte esterase det ection by dipstickOrdered By: Nina Ricahrdson on 09-21-2024 Leukocyte esterase Test strip Ql (U) Negative Negative [facility] Urine pHOrdered By: Martin Richardson on 09-21-2024 pH (U) 7.0 [pH] 5.0 - 8.0 [facility] Urine sediment bacteria coun t by microscopy (number/high power field)Ordered By: Nina Richardson on 09-21-2024 Bacteria LM.HPF (Urine sed) [#/Area] 0 /[HPF] None Seen [facility] Urine sediment yeast count b y microscopy (number/high powered field)Ordered By: Nina Richardson on 09-21-2024 Yeast LM.HPF (Urine sed) [#/Area] RARE /hpf None Seen [facility] Urine specific gravity measu rementOrdered By: Nina Richardson on 09-21-2024 Specific gravity (U) [Rel density] 1.010 1.002-1.03 0 [facility] Urine total bilirubin detect ion by test stripOrdered By: Nina Richardson on 09-21-2024 Urine total bilirubin detection by test strip Negative Negative [facility] Urine urobilinogen measureme ntOrdered By: Nina Richardson on 09-21-2024 Urobilinogen Ql (U) Normal mg/dl Normal [facility] Urobilinogen Ql (U)Ordered B y: Nina Richardson on 09-21-2024 Urine urobilinogen measurement Normal mg/dl Normal [facility] White blood cell (WBC) count Ordered By: Nina Richardson on 09-21-2024 WBC (Bld) [#/Vol] 10.5 10*3/uL 4.4-11.0 [facility] White blood cell (WBC) count 10.5 K/mm3 4.4-11.0 [facility] White blood cell countOrdere d By: Nina Richardson on 09-21-2024 White blood cell count 0 SEEN /hpf 0-5 [facility] White blood cell count 0 SEEN /hpf [facility] Yeast LM.HPF (Urine sed) [#/ Area]Ordered By: Nina Richardson on 09-21-2024 Urine sediment yeast count by microscopy (number/high powered field) RARE /hpf None Seen [facility] pH (U)Ordered By: Nina Richardson on 09-21-2024 Urine pH 7.0 5.0 - 8.0 [facility] Absolute lymphocyte countOrd ered By: Latricia Aaron on 09-16-2024 Lymphocytes Auto (Unsp spec) [#/Vol] 1.72 10*3/uL 0.83-4.51 [facility] Absolute neutrophil countOrd ered By: Latricia Aaron on 09-16-2024 Absolute neutrophil count 10.5 X10^3/uL High 2.0-7.7 [facility] Anion gap [Moles/Vol]Ordered By: Brenda Posadas on 09-16-2024 Anion gap in Serum or Plasma 10 10-16 [facility] Anion gap in Serum or Plasma Ordered By: Brenda Posadas on 09-16-2024 Anion gap [Moles/Vol] 10 mmol/L 10-16 [facility] Automated lymphocyte count a s percentage of total leukocytesOrdered By: Latricia Aaron on 09-16-2024 Lymphocytes/100 WBC Auto (Unsp spec) 13.0 % Low 19-41 [facility] BUN/creatinine ratioOrdered By: Brenda Posadas on 09-16-2024 Urea nitrogen/Creatinine [Mass ratio] 24.8 mg/mg High 10-20 [facility] BUN/creatinine ratio 24.8 RATIO High 10-20 [facility] Basic Metabolic Profile (BMP )on 09-16-2024 BUN/CRE 24.8 RATIO High -20 [facility] Comment on above: Performed By: #### L 500.2500, L100.0100 ####[facility] [address] [place], [address] Calcium [Mass/Vol] 9.3 mg/dL Normal 7.6-11.0 [facility] Comment on above: Performed By: #### L 500.2500, L100.0100 ####[facility] [address] [place], [address] Chloride [Moles/Vol] 101 mmol/L Normal 98-108 [facility] Comment on above: Performed By: #### L 500.2500, L100.0100 ####[facility] [address] [place], [address] CO2 [Moles/Vol] 27.0 mmol/L Normal 21.0-32.0 [facility] Comment on above: Performed By: #### L 500.2500, L100.0100 ####[facility] [address] [place], [address] Creatinine [Mass/Vol] 0.69 mg/dL Low 0.70-1.20 [facility] Comment on above: Performed By: #### L 500.2500, L100.0100 ####[facility] [address] [place], [address] ECRCL 104.49 ml/min Normal 50-250 [facility] Comment on above: Performed By: #### L 500.2500, L100.0100 ####[facility] [address] [place], [address] GAP 10 Normal 5-15 [facility] Comment on above: Performed By: #### L 500.2500, L100.0100 ####[facility] [address] [place], [address] GFR/1.73 sq M.predicted among non-blacks MDRD (S/P/Bld) [Vol rate/Area] 104 mL/min/{1.73_m2} Normal >60 [facility] Comment on above: Result Comment: mL/m in/1.73m2 CKD-EPI Creatinine Equation (2020) Performed By: #### L 500.2500, L100.0100 ####[facility] [address] [place], [address] Glucose [Mass/Vol] 195 mg/dL High 70-99 [facility] Comment on above: Performed By: #### L 500.2500, L100.0100 ####[facility] [address] [place], [address] Potassium [Moles/Vol] 4.1 mmol/L Normal 3.3-5.1 [facility] Comment on above: Performed By: #### L 500.2500, L100.0100 ####[facility] [address] [place], [address] Sodium [Moles/Vol] 138 mmol/L Normal 133-145 [facility] Comment on above: Performed By: #### L 500.2500, L100.0100 ####[facility] [address] [place], [address] Urea nitrogen [Mass/Vol] 17 mg/dL Normal 4-19 [facility] Comment on above: Performed By: #### L 500.2500, L100.0100 ####[facility] [address] [place], [address] Basophil percentageOrdered B y: Latricia Aaron on 09-16-2024 Basophils/100 WBC (Bld) 0.4 % 0-1 [facility] Basophil percentage 0.4 % 0-1 [facility] Bedside Glucoseon 09-16-2024 FINGERSTICK GLU 204 mg/dL High 74-106 [facility] Comment on above: Result Comment: TALIA GEMENT OF PATIENT CARE PER NURSING PROTOCOL Performed By: #### L 501.080 ####[facility] [address] [place], [address] FINGERSTICK GLU 215 mg/dL High 74-106 [facility] Comment on above: Result Comment: TALIA GEMENT OF PATIENT CARE PER NURSING PROTOCOL Performed By: #### L 501.080 ####[facility] [address] [place], [address] CBC W/Diff, Automatedon 09-02 Absolute Lymph 1.72 X10 3/uL Normal 0.83-4.51 [facility] Comment on above: Performed By: #### L 100.0100 ####[facility] [address] [place], [address] Absolute Neut 10.5 X10 3/uL High 2.0-7.7 [facility] Comment on above: Performed By: #### L 100.0100 ####[facility] [address] [place], [address] Basophils/100 WBC (Bld) 0.4 % Normal 0-1 [facility] Comment on above: Performed By: #### L 100.0100 ####[facility] [address] [place], [address] Eosinophils/100 WBC (Bld) 0.5 % Normal 0-5 [facility] Comment on above: Performed By: #### L 100.0100 ####[facility] [address] [place], [address] Erythrocyte distribution width (RBC) [Ratio] 13.8 % Normal 11.6-14.6 [facility] Comment on above: Performed By: #### L 100.0100 ####[facility] [address] [place], [address] Hematocrit (Bld) [Volume fraction] 35.1 % Low 37-47 [facility] Comment on above: Performed By: #### L 100.0100 ####[facility] [address] [place], [address] Hemoglobin (Bld) [Mass/Vol] 11.4 g/dL Low 12.0-15.0 [facility] Comment on above: Performed By: #### L 100.0100 ####[facility] [address] [place], [address] IG% 0.500 Normal 0.0-0.9 [facility] Comment on above: Result Comment: IG% - Immature Granulocytes (promyelocytes, myelocytes andmetamyelocytes) > 1% indicates that a LEFT SHIFT is Present. Performed By: #### L 100.0100 ####[facility] [address] [place], [address] Lymphocytes/100 WBC (Bld) 13.0 % Low 19-41 [facility] Comment on above: Performed By: #### L 100.0100 ####[facility] [address] [place], [address] MCH (RBC) [Entitic mass] 27.9 pg Normal 27.0-32.0 [facility] Comment on above: Performed By: #### L 100.0100 ####[facility] [address] [place], [address] MCHC (RBC) [Mass/Vol] 32.5 g/dL Normal 32-36 [facility] Comment on above: Performed By: #### L 100.0100 ####[facility] [address] [place], [address] MCV (RBC) [Entitic vol] 85.8 fL Normal 81-99 [facility] Comment on above: Performed By: #### L 100.0100 ####[facility] [address] [place], [address] Monocytes/100 WBC (Bld) 6.2 % Normal 0-10 [facility] Comment on above: Performed By: #### L 100.0100 ####[facility] [address] [place], [address] Neutrophils/100 WBC (Bld) 79.4 % High 47-70 [facility] Comment on above: Performed By: #### L 100.0100 ####[facility] [address] [place], [address] Nucleated RBC (Bld) [#/Vol] 0 10*3/uL Normal 0-5 [facility] Comment on above: Performed By: #### L 100.0100 ####[facility] [address] [place], [address] Platelet mean volume (Bld) [Entitic vol] 9.9 fL Normal 6.2-12.0 [facility] Comment on above: Performed By: #### L 100.0100 ####[facility] [address] [place], [address] Platelets (Bld) [#/Vol] 229 10*3/uL Normal 150-450 [facility] Comment on above: Performed By: #### L 100.0100 ####[facility] [address] [place], [address] RBC (Bld) [#/Vol] 4.09 10*6/uL Low 4.2-5.4 [facility] Comment on above: Performed By: #### L 100.0100 ####[facility] [address] [place], [address] RDW SD 43.5 fl Normal 35.1-43.9 [facility] Comment on above: Performed By: #### L 100.0100 ####[facility] [address] [place], [address] WBC (Bld) [#/Vol] 13.2 10*3/uL High 4.4-11.0 [facility] Comment on above: Performed By: #### L 100.0100 ####[facility] [address] [place], [address] Absolute Neut Normal 2.0-7.7 [facility] Comment on above: Result Comment: CLOT FREDDY, SPOKE WITH RANGLE Performed By: #### L 500.2500, L100.0100 ####[facility] [address] [place], [address] HCT Normal 37-47 [facility] Comment on above: Result Comment: CLOT FREDDY, SPOKE WITH RANGLE Performed By: #### L 500.2500, L100.0100 ####[facility] [address] [place], [address] HGB Normal 12.0-15.0 [facility] Comment on above: Result Comment: CLOT FREDDY, SPOKE WITH RANGLE Performed By: #### L 500.2500, L100.0100 ####[facility] [address] [place], [address] MCH Normal 27.0-32.0 [facility] Comment on above: Result Comment: CLOT FREDDY, SPOKE WITH RANGLE Performed By: #### L 500.2500, L100.0100 ####[facility] [address] [place], [address] MCHC Normal 32-36 [facility] Comment on above: Result Comment: CLOT FREDDY, SPOKE WITH RANGLE Performed By: #### L 500.2500, L100.0100 ####[facility] [address] [place], [address] MCV Normal 81-99 [facility] Comment on above: Result Comment: CLOT FREDDY, SPOKE WITH RANGLE Performed By: #### L 500.2500, L100.0100 ####[facility] [address] [place], [address] NEUT% Normal 47-70 [facility] Comment on above: Result Comment: CLOT FREDDY, SPOKE WITH RANGLE Performed By: #### L 500.2500, L100.0100 ####[facility] [address] [place], [address] PLT Normal 150-450 [facility] Comment on above: Result Comment: CLOT FREDDY, SPOKE WITH RANGLE Performed By: #### L 500.2500, L100.0100 ####[facility] [address] [place], [address] RBC Normal 4.2-5.4 [facility] Comment on above: Result Comment: CLOT FREDDY, SPOKE WITH RANGLE Performed By: #### L 500.2500, L100.0100 ####[facility] [address] [place], [address] RDW CV Normal 11.6-14.6 [facility] Comment on above: Result Comment: CLOT FREDDY, SPOKE WITH RANGLE Performed By: #### L 500.2500, L100.0100 ####[facility] [address] [place], [address] RDW SD Normal 35.1-43.9 [facility] Comment on above: Result Comment: CLOT FREDDY, SPOKE WITH RANGLE Performed By: #### L 500.2500, L100.0100 ####[facility] [address] [place], [address] WBC Normal 4.4-11.0 [facility] Comment on above: Result Comment: CLOT FREDDY, SPOKE WITH RANGLE Performed By: #### L 500.2500, L100.0100 ####[facility] [address] [place], [address] Calcium [Mass/Vol]Ordered By : Brenda Posadas on 09-16-2024 Serum or plasma calcium measurement (mass/volume) 9.3 mg/dL 7.6-11.0 [facility] Carbon dioxide, total [Moles /volume] in Central venous bloodOrdered By: Brenda Posadas on 09-16-2024 CO2 [Moles/Vol] 27.0 mmol/L 21.0-32.0 [facility] Carbon dioxide, total [Moles/volume] in Central venous blood 27.0 mmol/L 21.0-32.0 [facility] Chloride assayOrdered By: Martin Posadas on 09-16-2024 Chloride [Moles/Vol] 101 mmol/L 98-108 [facility] Chloride assay 101 mmol/L 98-108 [facility] Creatinine [Mass/Vol]Ordered By: Brenda Posadas on 09-16-2024 Serum creatinine measurement (mass/volume) 0.69 mg/dL Low 0.70-1.20 [facility] Eosinophil percentageOrdered By: Latricia Aaron on 09-16-2024 Eosinophils/100 WBC (Bld) 0.5 % 0-5 [facility] Eosinophil percentage 0.5 % 0-5 [facility] Erythrocyte distribution wid th (RBC) [Ratio]Ordered By: Latricia Aaron on 09-16-2024 Erythrocyte distribution width ratio 13.8 % 11.6-14.6 [facility] Erythrocyte distribution width standard deviation 43.5 fl 35.1-43.9 [facility] Erythrocyte distribution wid th ratioOrdered By: Latricia Aaron on 09-16-2024 Erythrocyte distribution width (RBC) [Ratio] 13.8 % 11.6-14.6 [facility] Erythrocyte distribution wid th standard deviationOrdered By: Latricia Aaron on 09-16-2024 Erythrocyte distribution width (RBC) [Ratio] 43.5 fl 35.1-43.9 [facility] Estimation of creatinine sylvain aranceOrdered By: Brenda Posadas on 09-16-2024 Estimation of creatinine clearance 104.49 ml/min 50-250 [facility] GFR/1.73 sq M.predicted estephanie g non-blacks MDRD (S/P/Bld) [Vol rate/Area]Ordered By: Brenda Posadas on 09-16-2024 Glomerular filtration rate (GFR) estimation/1.73 sq m using serum, plasma, or whole b 104 >60 [facility] Glomerular filtration rate ( GFR) estimation/1.73 sq m using serum, plasma, or whole bOrdered By: Brenda Posadas on 09-16-2024 GFR/1.73 sq M.predicted among non-blacks MDRD (S/P/Bld) [Vol rate/Area] 104 mL/min/{1.73_m2} >60 [facility] Glucose [Mass/Vol]Ordered By : Brenda Posadas on 09-16-2024 Serum glucose measurement (mass/volume) 195 mg/dL High 70-99 [facility] Glucose measurement at bedsi deOrdered By: Latricia Aaron on 09-16-2024 Glucose [Mass/Vol] 204 mg/dL High 74-106 [facility] Glucose measurement at bedside 204 mg/dL High 74-106 [facility] Hematocrit Auto (Bld) [Volum e fraction]Ordered By: Latricia Aaron on 09-16-2024 Hematocrit (Bld) [Volume fraction] 35.1 % Low 37-47 [facility] Automated blood hematocrit (percentage) 35.1 % Low 37-47 [facility] Hemoglobin measurementOrdere d By: Latricia Aaron on 09-16-2024 Hemoglobin (Bld) [Mass/Vol] 11.4 g/dL Low 12.0-15.0 [facility] Hemoglobin measurement 11.4 g/dL Low 12.0-15.0 [facility] Immature granulocytes/100 WB C Auto (Bld)Ordered By: Latricia Aaron on 09-16-2024 Immature granulocytes/100 WBC (Bld) 0.500 % 0.0-0.9 [facility] Automated immature granulocyte percentage 0.500 % 0.0-0.9 [facility] Lymphocytes Auto (Unsp spec) [#/Vol]Ordered By: Latricia Aaron on 09-16-2024 Absolute lymphocyte count 1.72 X10^3/uL 0.83-4.51 [facility] Lymphocytes/100 WBC Auto (Un sp spec)Ordered By: Latricia Aaron on 09-16-2024 Automated lymphocyte count as percentage of total leukocytes 13.0 % Low 19-41 [facility] MCV (RBC) [Entitic vol]Order ed By: Latricia Aaron on 09-16-2024 MCV (mean corpuscular volume) determination 85.8 fL 81-99 [facility] MCV (mean corpuscular volume ) determinationOrdered By: Latricia Aaron on 09-16-2024 MCV (RBC) [Entitic vol] 85.8 fL 81-99 [facility] Mean corpuscular hemoglobin (MCH) determinationOrdered By: Latricia Aaron on 09-16-2024 MCH (RBC) [Entitic mass] 27.9 pg 27.0-32.0 [facility] Mean corpuscular hemoglobin (MCH) determination 27.9 pg 27.0-32.0 [facility] Mean corpuscular hemoglobin concentration (MCHC) determinationOrdered By: Latricia Aaron on 09-16-2024 Mean corpuscular hemoglobin concentration (MCHC) determination 32.5 g/dL 32-36 [facility] Mean platelet volume determi nationOrdered By: Latricia Aaron on 09-16-2024 Mean platelet volume determination 9.9 fl 6.2-12.0 [facility] Monocyte percentageOrdered B y: Latricia Aaron on 09-16-2024 Monocytes/100 WBC (Bld) 6.2 % 0-10 [facility] Monocyte percentage 6.2 % 0-10 [facility] Neutrophil percentageOrdered By: Latricia Aaron on 09-16-2024 Neutrophils/100 WBC (Bld) 79.4 % High 47-70 [facility] Neutrophil percentage 79.4 % High 47-70 [facility] Nucleated red blood cell per centageOrdered By: Latricia Aaron on 09-16-2024 Nucleated red blood cell percentage 0 % 0-5 [facility] Platelet countOrdered By: Tristan Aaron on 09-16-2024 Platelets (Bld) [#/Vol] 229 10*3/uL 150-450 [facility] Platelet count 229 K/mm3 150-450 [facility] Potassium (Unsp spec) [Mass/ Vol]Ordered By: Brenda Posadas on 09-16-2024 Potassium measurement (mass/volume) 4.1 mmol/L 3.3-5.1 [facility] Potassium measurement (mass/ volume)Ordered By: Brenda Posadas on 09-16-2024 Potassium (Unsp spec) [Mass/Vol] 4.1 mmol/L 3.3-5.1 [facility] RBC Auto (Bld) [#/Vol]Ordere d By: Latricia Aaron on 09-16-2024 RBC (Bld) [#/Vol] 4.09 10*6/uL Low 4.2-5.4 [facility] Automated blood erythrocyte count 4.09 M/mm3 Low 4.2-5.4 [facility] Serum creatinine measurement (mass/volume)Ordered By: Brenda Posadas on 09-16-2024 Creatinine [Mass/Vol] 0.69 mg/dL Low 0.70-1.20 [facility] Serum glucose measurement (m ass/volume)Ordered By: Brenda Posadas on 09-16-2024 Glucose [Mass/Vol] 195 mg/dL High 70-99 [facility] Serum or plasma calcium xiomara urement (mass/volume)Ordered By: Brenda Posadas on 09-16-2024 Calcium [Mass/Vol] 9.3 mg/dL 7.6-11.0 [facility] Serum or plasma urea nitroge n measurement (mass/volume)Ordered By: Brenda Posadas on 09-16-2024 Urea nitrogen [Mass/Vol] 17 mg/dL - [facility] Sodium levelOrdered By: Gavi Posadas on 09-16-2024 Sodium [Moles/Vol] 138 mmol/L 133-145 [facility] Sodium level 138 mmol/L 133-145 [facility] Urea nitrogen [Mass/Vol]Orde red By: Brenda Posadas on 09-16-2024 Serum or plasma urea nitrogen measurement (mass/volume) 17 mg/dL - [facility] White blood cell (WBC) count Ordered By: Latricia Aaron on 09-16-2024 WBC (Bld) [#/Vol] 13.2 10*3/uL High 4.4-11.0 [facility] White blood cell (WBC) count 13.2 K/mm3 High 4.4-11.0 [facility] Basic Metabolic Profile (BMP )on 09-15-2024 BUN/CRE 19.5 RATIO Normal 10-20 [facility] Comment on above: Performed By: #### L 500.2500, L100.0100 ####[facility] [address] [place], [address] Calcium [Mass/Vol] 9.1 mg/dL Normal 7.6-11.0 [facility] Comment on above: Performed By: #### L 500.2500, L100.0100 ####[facility] [address] [place], [address] Chloride [Moles/Vol] 100 mmol/L Normal 98-108 [facility] Comment on above: Performed By: #### L 500.2500, L100.0100 ####[facility] [address] [place], [address] CO2 [Moles/Vol] 27.6 mmol/L Normal 21.0-32.0 [facility] Comment on above: Performed By: #### L 500.2500, L100.0100 ####[facility] [address] [place], [address] Creatinine [Mass/Vol] 0.79 mg/dL Normal 0.70-1.20 [facility] Comment on above: Performed By: #### L 500.2500, L100.0100 ####[facility] [address] [place], [address] ECRCL 93.04 ml/min Normal 50-250 [facility] Comment on above: Performed By: #### L 500.2500, L100.0100 ####[facility] [address] [place], [address] GAP 8 Normal 5-15 [facility] Comment on above: Performed By: #### L 500.2500, L100.0100 ####[facility] [address] [place], [address] GFR/1.73 sq M.predicted among non-blacks MDRD (S/P/Bld) [Vol rate/Area] 89 mL/min/{1.73_m2} Normal >60 [facility] Comment on above: Result Comment: mL/m in/1.73m2 CKD-EPI Creatinine Equation (2020) Performed By: #### L 500.2500, L100.0100 ####[facility] [address] [place], [address] Glucose [Mass/Vol] 172 mg/dL High 70-99 [facility] Comment on above: Performed By: #### L 500.2500, L100.0100 ####[facility] [address] [place], [address] Potassium [Moles/Vol] 3.9 mmol/L Normal 3.3-5.1 [facility] Comment on above: Performed By: #### L 500.2500, L100.0100 ####[facility] [address] [place], [address] Sodium [Moles/Vol] 136 mmol/L Normal 133-145 [facility] Comment on above: Performed By: #### L 500.2500, L100.0100 ####[facility] [address] [place], [address] Urea nitrogen [Mass/Vol] 15 mg/dL Normal 4-19 [facility] Comment on above: Performed By: #### L 500.2500, L100.0100 ####[facility] [address] [place], [address] Bedside Glucoseon 09-15-2024 FINGERSTICK GLU 278 mg/dL High 74-106 [facility] Comment on above: Result Comment: TALIA CHAMBERS OF PATIENT CARE PER NURSING PROTOCOL Performed By: #### L 501.080 ####[facility] [address] [place], [address] FINGERSTICK GLU 218 mg/dL High 74-106 [facility] Comment on above: Result Comment: TALIA GEMENT OF PATIENT CARE PER NURSING PROTOCOL Performed By: #### L 501.080 ####[facility] [address] [place], [address] FINGERSTICK GLU 234 mg/dL High 74-106 [facility] Comment on above: Result Comment: TALIA GEMENT OF PATIENT CARE PER NURSING PROTOCOL Performed By: #### L 501.080 ####[facility] [address] [place], [address] FINGERSTICK GLU 188 mg/dL High 74-106 [facility] Comment on above: Result Comment: TALIA GEMENT OF PATIENT CARE PER NURSING PROTOCOL Performed By: #### L 501.080 ####[facility] [address] [place], [address] CBC W/Diff, Automatedon 09-02 Absolute Lymph 1.34 X10 3/uL Normal 0.83-4.51 [facility] Comment on above: Performed By: #### L 500.2500, L100.0100 ####[facility] [address] [place], [address] Absolute Neut 6.8 X10 3/uL Normal 2.0-7.7 [facility] Comment on above: Performed By: #### L 500.2500, L100.0100 ####[facility] [address] [place], [address] Basophils/100 WBC (Bld) 0.7 % Normal 0-1 [facility] Comment on above: Performed By: #### L 500.2500, L100.0100 ####[facility] [address] [place], [address] Eosinophils/100 WBC (Bld) 1.2 % Normal 0-5 [facility] Comment on above: Performed By: #### L 500.2500, L100.0100 ####[facility] [address] [place], [address] Erythrocyte distribution width (RBC) [Ratio] 14.0 % Normal 11.6-14.6 [facility] Comment on above: Performed By: #### L 500.2500, L100.0100 ####[facility] [address] [place], [address] Hematocrit (Bld) [Volume fraction] 32.2 % Low 37-47 [facility] Comment on above: Performed By: #### L 500.2500, L100.0100 ####[facility] [address] [place], [address] Hemoglobin (Bld) [Mass/Vol] 10.3 g/dL Low 12.0-15.0 [facility] Comment on above: Performed By: #### L 500.2500, L100.0100 ####[facility] [address] [place], [address] IG% 0.400 Normal 0.0-0.9 [facility] Comment on above: Result Comment: IG% - Immature Granulocytes (promyelocytes, myelocytes andmetamyelocytes) > 1% indicates that a LEFT SHIFT is Present. Performed By: #### L 500.2500, L100.0100 ####[facility] [address] [place], [address] Lymphocytes/100 WBC (Bld) 14.8 % Low 19-41 [facility] Comment on above: Performed By: #### L 500.2500, L100.0100 ####[facility] [address] [place], [address] MCH (RBC) [Entitic mass] 27.5 pg Normal 27.0-32.0 [facility] Comment on above: Performed By: #### L 500.2500, L100.0100 ####[facility] [address] [place], [address] MCHC (RBC) [Mass/Vol] 32.0 g/dL Normal 32-36 [facility] Comment on above: Performed By: #### L 500.2500, L100.0100 ####[facility] [address] [place], [address] MCV (RBC) [Entitic vol] 86.1 fL Normal 81-99 [facility] Comment on above: Performed By: #### L 500.2500, L100.0100 ####[facility] [address] [place], [address] Monocytes/100 WBC (Bld) 8.1 % Normal 0-10 [facility] Comment on above: Performed By: #### L 500.2500, L100.0100 ####[facility] [address] [place], [address] Neutrophils/100 WBC (Bld) 74.8 % High 47-70 [facility] Comment on above: Performed By: #### L 500.2500, L100.0100 ####[facility] [address] [place], [address] Nucleated RBC (Bld) [#/Vol] 0 10*3/uL Normal 0-5 [facility] Comment on above: Performed By: #### L 500.2500, L100.0100 ####[facility] [address] [place], [address] Platelet mean volume (Bld) [Entitic vol] 10.0 fL Normal 6.2-12.0 [facility] Comment on above: Performed By: #### L 500.2500, L100.0100 ####[facility] [address] [place], [address] Platelets (Bld) [#/Vol] 211 10*3/uL Normal 150-450 [facility] Comment on above: Performed By: #### L 500.2500, L100.0100 ####[facility] [address] [place], [address] RBC (Bld) [#/Vol] 3.74 10*6/uL Low 4.2-5.4 [facility] Comment on above: Performed By: #### L 500.2500, L100.0100 ####[facility] [address] [place], [address] RDW SD 43.8 fl Normal 35.1-43.9 [facility] Comment on above: Performed By: #### L 500.2500, L100.0100 ####[facility] [address] [place], [address] WBC (Bld) [#/Vol] 9.0 10*3/uL Normal 4.4-11.0 [facility] Comment on above: Performed By: #### L 500.2500, L100.0100 ####[facility] [address] [place], [address] Consultation - Urologyon Consultation - Urology Normal [facility] Urine Cultureon 09-15-2024 URC Below infection leve l. Yeast, not Ashley albicans Prosper Count 1000-10,000 Normal [facility] Comment on above: Performed By: #### L 400.0001, M100.2200 ####[facility] [address] [place], [address] Basic Metabolic Profile (BMP )on 09-14-2024 BUN/CRE 25.9 RATIO High 10-20 [facility] Comment on above: Performed By: #### L 500.2500, L100.0100 ####[facility] [address] [place], [address] Calcium [Mass/Vol] 9.0 mg/dL Normal 7.6-11.0 [facility] Comment on above: Performed By: #### L 500.2500, L100.0100 ####[facility] [address] [place], [address] Chloride [Moles/Vol] 103 mmol/L Normal 98-108 [facility] Comment on above: Performed By: #### L 500.2500, L100.0100 ####[facility] [address] [place], [address] CO2 [Moles/Vol] 20.0 mmol/L Low 21.0-32.0 [facility] Comment on above: Performed By: #### L 500.2500, L100.0100 ####[facility] [address] [place], [address] Creatinine [Mass/Vol] 0.81 mg/dL Normal 0.70-1.20 [facility] Comment on above: Performed By: #### L 500.2500, L100.0100 ####[facility] [address] [place], [address] ECRCL 90.18 ml/min Normal 50-250 [facility] Comment on above: Performed By: #### L 500.2500, L100.0100 ####[facility] [address] [place], [address] GAP 11 Normal 5-15 [facility] Comment on above: Performed By: #### L 500.2500, L100.0100 ####[facility] [address] [place], [address] GFR/1.73 sq M.predicted among non-blacks MDRD (S/P/Bld) [Vol rate/Area] 87 mL/min/{1.73_m2} Normal >60 [facility] Comment on above: Result Comment: mL/m in/1.73m2 CKD-EPI Creatinine Equation (2020) Performed By: #### L 500.2500, L100.0100 ####[facility] [address] [place], [address] Glucose [Mass/Vol] 181 mg/dL High 70-99 [facility] Comment on above: Performed By: #### L 500.2500, L100.0100 ####[facility] [address] [place], [address] Potassium [Moles/Vol] 4.6 mmol/L Normal 3.3-5.1 [facility] Comment on above: Result Comment: Hemo lysis present, Results??could be affected.?? Performed By: #### L 500.2500, L100.0100 ####[facility] [address] [place], [address] Sodium [Moles/Vol] 134 mmol/L Normal 133-145 [facility] Comment on above: Performed By: #### L 500.2500, L100.0100 ####[facility] [address] [place], [address] Urea nitrogen [Mass/Vol] 21 mg/dL High 4-19 [facility] Comment on above: Performed By: #### L 500.2500, L100.0100 ####[facility] [address] [place], [address] Bedside Glucoseon 09-14-2024 FINGERSTICK GLU 188 mg/dL High 74-106 [facility] Comment on above: Result Comment: TALIA GEMENT OF PATIENT CARE PER NURSING PROTOCOL Performed By: #### L 501.080 ####[facility] [address] [place], [address] FINGERSTICK GLU 248 mg/dL High 74-106 [facility] Comment on above: Result Comment: TALIA GEMENT OF PATIENT CARE PER NURSING PROTOCOL Performed By: #### L 501.080 ####[facility] [address] [place], [address] FINGERSTICK GLU 288 mg/dL High 74-106 [facility] Comment on above: Result Comment: TALIA GEMENT OF PATIENT CARE PER NURSING PROTOCOL Performed By: #### L 501.080 ####[facility] [address] [place], [address] FINGERSTICK GLU 172 mg/dL High 74-106 [facility] Comment on above: Result Comment: TALIA GEMENT OF PATIENT CARE PER NURSING PROTOCOL Performed By: #### L 501.080 ####[facility] [address] [place], [address] CBC W/Diff, Automatedon 09-02 Platelets (Bld) [#/Vol] 129 10*3/uL Low 150-450 [facility] Comment on above: Performed By: #### L 500.2500, L100.0100 ####[facility] [address] [place], [address] Culture, Blood (WB)on 2024 CUB LHAND Blood cultures x2, from two different sites No growth in 5 days. Normal [facility] Comment on above: Performed By: #### M 200.1000 ####[facility] [address] [place], [address] Basic Metabolic Profile (BMP )on 09-13-2024 BUN/CRE 17.6 RATIO Normal 10-20 [facility] Comment on above: Performed By: #### L 100.0100, L500.2500 ####[facility] [address] [place], [address] Calcium [Mass/Vol] 9.1 mg/dL Normal 7.6-11.0 [facility] Comment on above: Performed By: #### L 100.0100, L500.2500 ####[facility] [address] [place], [address] Chloride [Moles/Vol] 104 mmol/L Normal 98-108 [facility] Comment on above: Performed By: #### L 100.0100, L500.2500 ####[facility] [address] [place], [address] CO2 [Moles/Vol] 21.1 mmol/L Normal 21.0-32.0 [facility] Comment on above: Performed By: #### L 100.0100, L500.2500 ####[facility] [address] [place], [address] Creatinine [Mass/Vol] 1.02 mg/dL Normal 0.70-1.20 [facility] Comment on above: Performed By: #### L 100.0100, L500.2500 ####[facility] [address] [place], [address] ECRCL 71.49 ml/min Normal 50-250 [facility] Comment on above: Performed By: #### L 100.0100, L500.2500 ####[facility] [address] [place], [address] GAP 11 Normal 5-15 [facility] Comment on above: Performed By: #### L 100.0100, L500.2500 ####[facility] [address] [place], [address] GFR/1.73 sq M.predicted among non-blacks MDRD (S/P/Bld) [Vol rate/Area] 66 mL/min/{1.73_m2} Normal >60 [facility] Comment on above: Result Comment: mL/m in/1.73m2 CKD-EPI Creatinine Equation (2020) Performed By: #### L 100.0100, L500.2500 ####[facility] [address] [place], [address] Glucose [Mass/Vol] 223 mg/dL High 70-99 [facility] Comment on above: Performed By: #### L 100.0100, L500.2500 ####[facility] [address] [place], [address] Potassium [Moles/Vol] 4.2 mmol/L Normal 3.3-5.1 [facility] Comment on above: Performed By: #### L 100.0100, L500.2500 ####[facility] [address] [place], [address] Sodium [Moles/Vol] 136 mmol/L Normal 133-145 [facility] Comment on above: Performed By: #### L 100.0100, L500.2500 ####[facility] [address] [place], [address] Urea nitrogen [Mass/Vol] 18 mg/dL Normal 4-19 [facility] Comment on above: Performed By: #### L 100.0100, L500.2500 ####[facility] [address] [place], [address] Bedside Glucoseon 09-13-2024 FINGERSTICK GLU 207 mg/dL High 74-106 [facility] Comment on above: Result Comment: TALIA GEMENT OF PATIENT CARE PER NURSING PROTOCOL Performed By: #### L 501.080 ####[facility] [address] [place], [address] FINGERSTICK GLU 249 mg/dL High 74-106 [facility] Comment on above: Result Comment: TALIA GEMENT OF PATIENT CARE PER NURSING PROTOCOL Performed By: #### L 501.080 ####[facility] [address] [place], [address] FINGERSTICK GLU 181 mg/dL High 74-106 [facility] Comment on above: Result Comment: TALIA GEMENT OF PATIENT CARE PER NURSING PROTOCOL Performed By: #### L 501.080 ####[facility] [address] [place], [address] FINGERSTICK GLU 214 mg/dL High 74-106 [facility] Comment on above: Result Comment: TALIA GEMENT OF PATIENT CARE PER NURSING PROTOCOL Performed By: #### L 501.080 ####[facility] [address] [place], [address] CBC W/Diff, Automatedon 09-02 Absolute Lymph 1.69 X10 3/uL Normal 0.83-4.51 [facility] Comment on above: Performed By: #### L 100.0100, L500.2500 ####[facility] [address] [place], [address] Absolute Neut 8.9 X10 3/uL High 2.0-7.7 [facility] Comment on above: Performed By: #### L 100.0100, L500.2500 ####[facility] [address] [place], [address] Basophils/100 WBC (Bld) 0.9 % Normal 0-1 [facility] Comment on above: Performed By: #### L 100.0100, L500.2500 ####[facility] [address] [place], [address] Eosinophils/100 WBC (Bld) 1.6 % Normal 0-5 [facility] Comment on above: Performed By: #### L 100.0100, L500.2500 ####[facility] [address] [place], [address] Erythrocyte distribution width (RBC) [Ratio] 14.0 % Normal 11.6-14.6 [facility] Comment on above: Performed By: #### L 100.0100, L500.2500 ####[facility] [address] [place], [address] Hematocrit (Bld) [Volume fraction] 35.1 % Low 37-47 [facility] Comment on above: Performed By: #### L 100.0100, L500.2500 ####[facility] [address] [place], [address] Hemoglobin (Bld) [Mass/Vol] 11.3 g/dL Low 12.0-15.0 [facility] Comment on above: Performed By: #### L 100.0100, L500.2500 ####[facility] [address] [place], [address] IG% 0.600 Normal 0.0-0.9 [facility] Comment on above: Result Comment: IG% - Immature Granulocytes (promyelocytes, myelocytes andmetamyelocytes) > 1% indicates that a LEFT SHIFT is Present. Performed By: #### L 100.0100, L500.2500 ####[facility] [address] [place], [address] Lymphocytes/100 WBC (Bld) 14.4 % Low 19-41 [facility] Comment on above: Performed By: #### L 100.0100, L500.2500 ####[facility] [address] [place], [address] MCH (RBC) [Entitic mass] 28.2 pg Normal 27.0-32.0 [facility] Comment on above: Performed By: #### L 100.0100, L500.2500 ####[facility] [address] [place], [address] MCHC (RBC) [Mass/Vol] 32.2 g/dL Normal 32-36 [facility] Comment on above: Performed By: #### L 100.0100, L500.2500 ####[facility] [address] [place], [address] MCV (RBC) [Entitic vol] 87.5 fL Normal 81-99 [facility] Comment on above: Performed By: #### L 100.0100, L500.2500 ####[facility] [address] [place], [address] Monocytes/100 WBC (Bld) 6.9 % Normal 0-10 [facility] Comment on above: Performed By: #### L 100.0100, L500.2500 ####[facility] [address] [place], [address] Neutrophils/100 WBC (Bld) 75.6 % High 47-70 [facility] Comment on above: Performed By: #### L 100.0100, L500.2500 ####[facility] [address] [place], [address] Nucleated RBC (Bld) [#/Vol] 0 10*3/uL Normal 0-5 [facility] Comment on above: Performed By: #### L 100.0100, L500.2500 ####[facility] [address] [place], [address] Platelet mean volume (Bld) [Entitic vol] 10.1 fL Normal 6.2-12.0 [facility] Comment on above: Performed By: #### L 100.0100, L500.2500 ####[facility] [address] [place], [address] Platelets (Bld) [#/Vol] 232 10*3/uL Normal 150-450 [facility] Comment on above: Performed By: #### L 100.0100, L500.2500 ####[facility] [address] [place], [address] RBC (Bld) [#/Vol] 4.01 10*6/uL Low 4.2-5.4 [facility] Comment on above: Performed By: #### L 100.0100, L500.2500 ####[facility] [address] [place], [address] RDW SD 44.9 fl High 35.1-43.9 [facility] Comment on above: Performed By: #### L 100.0100, L500.2500 ####[facility] [address] [place], [address] WBC (Bld) [#/Vol] 11.7 10*3/uL High 4.4-11.0 [facility] Comment on above: Performed By: #### L 100.0100, L500.2500 ####[facility] [address] [place], [address] Basic Metabolic Profile (BMP )on 09-12-2024 BUN/CRE 24.0 RATIO High 10-20 [facility] Comment on above: Performed By: #### L 100.0100, L500.2500 ####[facility] [address] [place], [address] Calcium [Mass/Vol] 9.0 mg/dL Normal 7.6-11.0 [facility] Comment on above: Performed By: #### L 100.0100, L500.2500 ####[facility] [address] [place], [address] Chloride [Moles/Vol] 105 mmol/L Normal 98-108 [facility] Comment on above: Performed By: #### L 100.0100, L500.2500 ####[facility] [address] [place], [address] CO2 [Moles/Vol] 17.3 mmol/L Low 21.0-32.0 [facility] Comment on above: Performed By: #### L 100.0100, L500.2500 ####[facility] [address] [place], [address] Creatinine [Mass/Vol] 0.86 mg/dL Normal 0.70-1.20 [facility] Comment on above: Performed By: #### L 100.0100, L500.2500 ####[facility] [address] [place], [address] ECRCL 84.22 ml/min Normal 50-250 [facility] Comment on above: Performed By: #### L 100.0100, L500.2500 ####[facility] [address] [place], [address] GAP 11 Normal 5-15 [facility] Comment on above: Performed By: #### L 100.0100, L500.2500 ####[facility] [address] [place], [address] GFR/1.73 sq M.predicted among non-blacks MDRD (S/P/Bld) [Vol rate/Area] 81 mL/min/{1.73_m2} Normal >60 [facility] Comment on above: Result Comment: mL/m in/1.73m2 CKD-EPI Creatinine Equation (2020) Performed By: #### L 100.0100, L500.2500 ####[facility] [address] [place], [address] Glucose [Mass/Vol] 213 mg/dL High 70-99 [facility] Comment on above: Performed By: #### L 100.0100, L500.2500 ####[facility] [address] [place], [address] Potassium [Moles/Vol] 4.7 mmol/L Normal 3.3-5.1 [facility] Comment on above: Result Comment: Hemo lysis present, Results??could be affected.?? Performed By: #### L 100.0100, L500.2500 ####[facility] [address] [place], [address] Sodium [Moles/Vol] 134 mmol/L Normal 133-145 [facility] Comment on above: Performed By: #### L 100.0100, L500.2500 ####[facility] [address] [place], [address] Urea nitrogen [Mass/Vol] 21 mg/dL High 4-19 [facility] Comment on above: Performed By: #### L 100.0100, L500.2500 ####[facility] [address] [place], [address] Bedside Glucoseon 09-12-2024 FINGERSTICK GLU 271 mg/dL High [address] [place] [address] Comment on above: Result Comment: TALIA GEMENT OF PATIENT CARE PER NURSING PROTOCOL Performed By: #### L 501.080 ####[facility] [address] [place], [address] FINGERSTICK GLU 352 mg/dL High [address] [place] [address] Comment on above: Result Comment: TALIA GEMENT OF PATIENT CARE PER NURSING PROTOCOL Performed By: #### L 501.080 ####[facility] [address] [place], [address] FINGERSTICK GLU 195 mg/dL High [address] [place] [address] Comment on above: Result Comment: TALIA GEMENT OF PATIENT CARE PER NURSING PROTOCOL Performed By: #### L 501.080 ####[facility] [address] [place], [address] FINGERSTICK GLU 210 mg/dL High [address] [place] [address] Comment on above: Result Comment: TALIA GEMENT OF PATIENT CARE PER NURSING PROTOCOL Performed By: #### L 501.080 ####[facility] [address] [place], [address] FINGERSTICK GLU 331 mg/dL High [address] [place] [address] Comment on above: Result Comment: TALIA GEMENT OF PATIENT CARE PER NURSING PROTOCOL Performed By: #### L 501.080 ####[facility] [address] [place], [address] Bilirubin Test strip Ql (U)O rdered By: Nichelle Mcneil on 09-12-2024 Bilirubin Ql (U) Negative Negative [facility] CBC W/Diff, Automatedon 09-02 PLT EST ADEQUATE Normal ADEQ [facility] Comment on above: Performed By: #### L 100.0100, L500.2500 ####[facility] [address] [place], [address] CNCOon 09-12-2024 CNCO Letter Text Normal [facility] Clarity (U)Ordered By: Juan Mcneil on 09-12-2024 Urine clarity Clear Clear [facility] Color (U)Ordered By: Nichelle Mcneil on 09-12-2024 Urine color determination Straw Yellow [facility] Consultation - Infectious Dx on 09-12-2024 Consultation - Infectious Dx Normal [facility] Epithelial cells.squamous LM Ql (Urine sed)Ordered By: Nichelle Mcneil on 09-12-2024 Squamous epithelial cells detection in urine sediment by light microscopy 0-5 SEEN /hpf 5-10 [facility] Glucose Ql (U)Ordered By: Olamide Mcneil on 09-12-2024 Urine glucose detection 1000 mg/dl High Normal [facility] Ketones Test strip Ql (U)Ord ered By: Nichelle Mcneil on 09-12-2024 Ketones Ql (U) Negative Negative [facility] Mucus LM Ql (Urine sed)Order ed By: Nichelle Mcneil on 09-12-2024 Mucus Ql (Urine sed) 0 SEEN /hpf [facility] Nitrite Test strip Ql (U)Ord ered By: Nichelle Mcneil on 09-12-2024 Nitrite Ql (U) Negative Negative [facility] Platelet estimateOrdered By: Brenda Posadas on 09-12-2024 Platelets LM Ql (Bld) ADEQUATE ADEQ [facility] Platelets LM Ql (Bld)Ordered By: Brenda Posadas on 09-12-2024 Platelet estimate ADEQUATE ADEQ [facility] Protein Test strip Ql (U)Ord ered By: Nichelle Mcneil on 09-12-2024 Protein Ql (U) 15 mg/dl High Negative [facility] Urine protein assay by test strip, semi-quantitative 15 mg/dl High Negative [facility] Specific gravity (U) [Rel de nsity]Ordered By: Nichelle Mcneil on 09-12-2024 Urine specific gravity measurement 1.010 1.002-1.03 0 [facility] Squamous epithelial cells de tection in urine sediment by light microscopyOrdered By: Nichelle Mcneil on 09-12-2024 Epithelial cells.squamous LM Ql (Urine sed) 0-5 SEEN /hpf 5-10 [facility] Urinalysis, Completeon 09-12 EPI,SQUAMOUS 0-5 SEEN Normal 5-10 [facility] Comment on above: Order Comment: CLEAN CATCH Performed By: #### L 400.0001, M100.2200 ####[facility] [address] [place], [address] YEAST 1+ /hpf Normal None Seen [facility] Comment on above: Order Comment: CLEAN CATCH Performed By: #### L 400.0001, M100.2200 ####[facility] [address] [place], [address] BACTERIA 0 SEEN Normal None Seen [facility] Comment on above: Order Comment: CLEAN CATCH Performed By: #### L 400.0001, M100.2200 ####[facility] [address] [place], [address] Mucus Ql (Urine sed) 0 SEEN Normal [facility] Comment on above: Order Comment: CLEAN CATCH Performed By: #### L 400.0001, M100.2200 ####[facility] [address] [place], [address] RBC 0 SEEN Normal 0-5 [facility] Comment on above: Order Comment: CLEAN CATCH Performed By: #### L 400.0001, M100.2200 ####[facility] [address] [place], [address] WBC 0 SEEN Normal 0-5 [facility] Comment on above: Order Comment: CLEAN CATCH Performed By: #### L 400.0001, M100.2200 ####[facility] [address] [place], [address] Urine clarityOrdered By: Travis Mcneil on 09-12-2024 Clarity (U) Clear Clear [facility] Urine color determinationOrd ered By: Nichelle Mcneil on 09-12-2024 Color (U) Straw Yellow [facility] Urine cultureOrdered By: Travis Mcneil on 09-12-2024 Bacteria identified Cx Nom (U) Yeast, not Ashley albicans Abnormal [facility] Urine culture Yeast, not Ashley albicans Abnormal [facility] Urine glucose detectionOrder ed By: Nichelle Mcneil on 09-12-2024 Glucose Ql (U) 1000 mg/dl High Normal [facility] Urine leukocyte esterase det ection by dipstickOrdered By: Nichelle Mcneil on 09-12-2024 Leukocyte esterase Test strip Ql (U) Negative Negative [facility] Urine pHOrdered By: Nichelle pacheco on 09-12-2024 pH (U) 6.0 [pH] 5.0 - 8.0 [facility] Urine sediment bacteria coun t by microscopy (number/high power field)Ordered By: Nichelle Mcneil on 09-12-2024 Bacteria LM.HPF (Urine sed) [#/Area] 0 /[HPF] None Seen [facility] Urine sediment yeast count b y microscopy (number/high powered field)Ordered By: Nichelle Mcneil on 09-12-2024 Yeast LM.HPF (Urine sed) [#/Area] 1 /[HPF] None Seen [facility] Urine specific gravity measu rementOrdered By: Nichelle Mcneil on 09-12-2024 Specific gravity (U) [Rel density] 1.010 1.002-1.03 0 [facility] Urine total bilirubin detect ion by test stripOrdered By: Nichelle Mcneil on 09-12-2024 Urine total bilirubin detection by test strip Negative Negative [facility] Urine urobilinogen measureme ntOrdered By: Nichelle Mcneil on 09-12-2024 Urobilinogen Ql (U) Normal mg/dl Normal [facility] Urobilinogen Ql (U)Ordered B y: Nichelle Mcneil on 09-12-2024 Urine urobilinogen measurement Normal mg/dl Normal [facility] White blood cell countOrdere d By: Nichelle Mcneil on 09-12-2024 White blood cell count 0 SEEN /hpf 0-5 [facility] White blood cell count 0 SEEN /hpf [facility] Yeast LM.HPF (Urine sed) [#/ Area]Ordered By: Nichelle Mcneil on 09-12-2024 Urine sediment yeast count by microscopy (number/high powered field) 1+ /hpf None Seen [facility] pH (U)Ordered By: Nichelle butler on 09-12-2024 Urine pH 6.0 5.0 - 8.0 [facility] Abdomen Single View (Portabl e)on 09-11-2024 Abdomen Single View (Portable) Normal [facility] Basic Metabolic Profile (BMP )on 09-11-2024 BUN/CRE 21.7 RATIO High 10- [facility] Comment on above: Performed By: #### L 500.2500, L100.0100 ####[facility] [address] [place], [address] Calcium [Mass/Vol] 9.0 mg/dL Normal 7.6-11.0 [facility] Comment on above: Performed By: #### L 500.2500, L100.0100 ####[facility] [address] [place], [address] Chloride [Moles/Vol] 104 mmol/L Normal 98-108 [facility] Comment on above: Performed By: #### L 500.2500, L100.0100 ####[facility] [address] [place], [address] CO2 [Moles/Vol] 21.7 mmol/L Normal 21.0-32.0 [facility] Comment on above: Performed By: #### L 500.2500, L100.0100 ####[facility] [address] [place], [address] Creatinine [Mass/Vol] 0.84 mg/dL Normal 0.70-1.20 [facility] Comment on above: Performed By: #### L 500.2500, L100.0100 ####[facility] [address] [place], [address] ECRCL 85.20 ml/min Normal 50-250 [facility] Comment on above: Performed By: #### L 500.2500, L100.0100 ####[facility] [address] [place], [address] GAP 11 Normal 5-15 [facility] Comment on above: Performed By: #### L 500.2500, L100.0100 ####[facility] [address] [place], [address] GFR/1.73 sq M.predicted among non-blacks MDRD (S/P/Bld) [Vol rate/Area] 84 mL/min/{1.73_m2} Normal >60 [facility] Comment on above: Result Comment: mL/m in/1.73m2 CKD-EPI Creatinine Equation (2020) Performed By: #### L 500.2500, L100.0100 ####[facility] [address] [place], [address] Glucose [Mass/Vol] 171 mg/dL High 70-99 [facility] Comment on above: Performed By: #### L 500.2500, L100.0100 ####[facility] [address] [place], [address] Potassium [Moles/Vol] 4.0 mmol/L Normal 3.3-5.1 [facility] Comment on above: Performed By: #### L 500.2500, L100.0100 ####[facility] [address] [place], [address] Sodium [Moles/Vol] 136 mmol/L Normal 133-145 [facility] Comment on above: Performed By: #### L 500.2500, L100.0100 ####[facility] [address] [place], [address] Urea nitrogen [Mass/Vol] 18 mg/dL Normal 4-19 [facility] Comment on above: Performed By: #### L 500.2500, L100.0100 ####[facility] [address] [place], [address] Bedside Glucoseon 09-11-2024 FINGERSTICK GLU 114 mg/dL High 74-106 [facility] Comment on above: Result Comment: TALIA GEMENT OF PATIENT CARE PER NURSING PROTOCOL Performed By: #### L 501.080 ####[facility] [address] [place], [address] FINGERSTICK GLU 338 mg/dL High 74-106 [facility] Comment on above: Result Comment: TALIA GEMENT OF PATIENT CARE PER NURSING PROTOCOL Performed By: #### L 501.080 ####[facility] [address] [place], [address] FINGERSTICK GLU 142 mg/dL High 74-106 [facility] Comment on above: Result Comment: TALIA GEMENT OF PATIENT CARE PER NURSING PROTOCOL Performed By: #### L 501.080 ####[facility] [address] [place], [address] CBC W/Diff, Automatedon 09-02 Absolute Lymph 2.26 X10 3/uL Normal 0.83-4.51 [facility] Comment on above: Performed By: #### L 500.2500, L100.0100 ####[facility] [address] [place], [address] Absolute Neut 6.8 X10 3/uL Normal 2.0-7.7 [facility] Comment on above: Performed By: #### L 500.2500, L100.0100 ####[facility] [address] [place], [address] Basophils/100 WBC (Bld) 0.6 % Normal 0-1 [facility] Comment on above: Performed By: #### L 500.2500, L100.0100 ####[facility] [address] [place], [address] Eosinophils/100 WBC (Bld) 1.9 % Normal 0-5 [facility] Comment on above: Performed By: #### L 500.2500, L100.0100 ####[facility] [address] [place], [address] Erythrocyte distribution width (RBC) [Ratio] 14.0 % Normal 11.6-14.6 [facility] Comment on above: Performed By: #### L 500.2500, L100.0100 ####[facility] [address] [place], [address] Hematocrit (Bld) [Volume fraction] 33.1 % Low 37-47 [facility] Comment on above: Performed By: #### L 500.2500, L100.0100 ####[facility] [address] [place], [address] Hemoglobin (Bld) [Mass/Vol] 11.0 g/dL Low 12.0-15.0 [facility] Comment on above: Performed By: #### L 500.2500, L100.0100 ####[facility] [address] [place], [address] IG% 0.600 Normal 0.0-0.9 [facility] Comment on above: Result Comment: IG% - Immature Granulocytes (promyelocytes, myelocytes andmetamyelocytes) > 1% indicates that a LEFT SHIFT is Present. Performed By: #### L 500.2500, L100.0100 ####[facility] [address] [place], [address] Lymphocytes/100 WBC (Bld) 22.6 % Normal 19-41 [facility] Comment on above: Performed By: #### L 500.2500, L100.0100 ####[facility] [address] [place], [address] MCH (RBC) [Entitic mass] 28.1 pg Normal 27.0-32.0 [facility] Comment on above: Performed By: #### L 500.2500, L100.0100 ####[facility] [address] [place], [address] MCHC (RBC) [Mass/Vol] 33.2 g/dL Normal 32-36 [facility] Comment on above: Performed By: #### L 500.2500, L100.0100 ####[facility] [address] [place], [address] MCV (RBC) [Entitic vol] 84.4 fL Normal 81-99 [facility] Comment on above: Performed By: #### L 500.2500, L100.0100 ####[facility] [address] [place], [address] Monocytes/100 WBC (Bld) 6.3 % Normal 0-10 [facility] Comment on above: Performed By: #### L 500.2500, L100.0100 ####[facility] [address] [place], [address] Neutrophils/100 WBC (Bld) 68.0 % Normal 47-70 [facility] Comment on above: Performed By: #### L 500.2500, L100.0100 ####[facility] [address] [place], [address] Nucleated RBC (Bld) [#/Vol] 0 10*3/uL Normal 0-5 [facility] Comment on above: Performed By: #### L 500.2500, L100.0100 ####[facility] [address] [place], [address] Platelet mean volume (Bld) [Entitic vol] 9.9 fL Normal 6.2-12.0 [facility] Comment on above: Performed By: #### L 500.2500, L100.0100 ####[facility] [address] [place], [address] Platelets (Bld) [#/Vol] 252 10*3/uL Normal 150-450 [facility] Comment on above: Performed By: #### L 500.2500, L100.0100 ####[facility] [address] [place], [address] RBC (Bld) [#/Vol] 3.92 10*6/uL Low 4.2-5.4 [facility] Comment on above: Performed By: #### L 500.2500, L100.0100 ####[facility] [address] [place], [address] RDW SD 43.2 fl Normal 35.1-43.9 [facility] Comment on above: Performed By: #### L 500.2500, L100.0100 ####[facility] [address] [place], [address] WBC (Bld) [#/Vol] 10.0 10*3/uL Normal 4.4-11.0 [facility] Comment on above: Performed By: #### L 500.2500, L100.0100 ####[facility] [address] [place], [address] Urine Cultureon 09-11-2024 URC Below infection leve l. Presumptive E. coli Prosper Count <1000 Normal [facility] Comment on above: Performed By: #### M 100.2200 ####[facility] [address] [place], [address] Vitamin D 1,25-Dihydroxyon 0 09-11-2024 VIT D 1,25 DIHY 29.9 pg/mL Normal 24.8-81.5 [facility] Comment on above: Result Comment: Perf ormed at: BN - [facility] [address] [id number] Director: Karlee Oro MD, Phone: [phone] Performed By: #### L 3300.0960, L501.9520, L506.1001, L100.0100, L500.4050, L509.1000 ####[facility] [address] [place], [address] Basic Metabolic Profile (BMP )on 09-10-2024 BUN/CRE 18.2 RATIO Normal 10-20 [facility] Comment on above: Performed By: #### L 100.0100, L500.2500 ####[facility] [address] [place], [address] Calcium [Mass/Vol] 8.7 mg/dL Normal 7.6-11.0 [facility] Comment on above: Performed By: #### L 100.0100, L500.2500 ####[facility] [address] [place], [address] Chloride [Moles/Vol] 105 mmol/L Normal 98-108 [facility] Comment on above: Performed By: #### L 100.0100, L500.2500 ####[facility] [address] [place], [address] CO2 [Moles/Vol] 23.5 mmol/L Normal 21.0-32.0 [facility] Comment on above: Performed By: #### L 100.0100, L500.2500 ####[facility] [address] [place], [address] Creatinine [Mass/Vol] 1.00 mg/dL Normal 0.70-1.20 [facility] Comment on above: Performed By: #### L 100.0100, L500.2500 ####[facility] [address] [place], [address] ECRCL 71.49 ml/min Normal 50-250 [facility] Comment on above: Performed By: #### L 100.0100, L500.2500 ####[facility] [address] [place], [address] GAP 8 Normal 5-15 [facility] Comment on above: Performed By: #### L 100.0100, L500.2500 ####[facility] [address] [place], [address] GFR/1.73 sq M.predicted among non-blacks MDRD (S/P/Bld) [Vol rate/Area] 68 mL/min/{1.73_m2} Normal >60 [facility] Comment on above: Result Comment: mL/m in/1.73m2 CKD-EPI Creatinine Equation (2020) Performed By: #### L 100.0100, L500.2500 ####[facility] [address] [place], [address] Glucose [Mass/Vol] 251 mg/dL High 70-99 [facility] Comment on above: Performed By: #### L 100.0100, L500.2500 ####[facility] [address] [place], [address] Potassium [Moles/Vol] 4.4 mmol/L Normal 3.3-5.1 [facility] Comment on above: Performed By: #### L 100.0100, L500.2500 ####[facility] [address] [place], [address] Sodium [Moles/Vol] 136 mmol/L Normal 133-145 [facility] Comment on above: Performed By: #### L 100.0100, L500.2500 ####[facility] [address] [place], [address] Urea nitrogen [Mass/Vol] 18 mg/dL Normal 4-19 [facility] Comment on above: Performed By: #### L 100.0100, L500.2500 ####[facility] [address] [place], [address] Bedside Glucoseon 09-10-2024 FINGERSTICK GLU 241 mg/dL High 74-106 [facility] Comment on above: Result Comment: TALIA GEMENT OF PATIENT CARE PER NURSING PROTOCOL Performed By: #### L 501.080 ####[facility] [address] [place], [address] FINGERSTICK GLU 149 mg/dL High 74-106 [facility] Comment on above: Result Comment: TALIA GEMENT OF PATIENT CARE PER NURSING PROTOCOL Performed By: #### L 501.080 ####[facility] [address] [place], [address] FINGERSTICK GLU 250 mg/dL High 74-106 [facility] Comment on above: Result Comment: TALIA GEMENT OF PATIENT CARE PER NURSING PROTOCOL Performed By: #### L 501.080 ####[facility] [address] [place], [address] FINGERSTICK GLU 234 mg/dL High -[address] [place] [address] Comment on above: Result Comment: TALIA GEMENT OF PATIENT CARE PER NURSING PROTOCOL Performed By: #### L 501.080 ####[facility] [address] [place], [address] CBC W/Diff, Automatedon 04-0 9-2024 Absolute Lymph 1.84 X10 3/uL Normal 0.83-4.51 [facility] Comment on above: Performed By: #### L 100.0100, L500.2500 ####[facility] [address] [place], [address] Absolute Neut 7.2 X10 3/uL Normal 2.0-7.7 [facility] Comment on above: Performed By: #### L 100.0100, L500.2500 ####[facility] [address] [place], [address] Basophils/100 WBC (Bld) 0.6 % Normal 0-1 [facility] Comment on above: Performed By: #### L 100.0100, L500.2500 ####[facility] [address] [place], [address] Eosinophils/100 WBC (Bld) 1.6 % Normal 0-5 [facility] Comment on above: Performed By: #### L 100.0100, L500.2500 ####[facility] [address] [place], [address] Erythrocyte distribution width (RBC) [Ratio] 14.1 % Normal 11.6-14.6 [facility] Comment on above: Performed By: #### L 100.0100, L500.2500 ####[facility] [address] [place], [address] Hematocrit (Bld) [Volume fraction] 33.4 % Low 37-47 [facility] Comment on above: Performed By: #### L 100.0100, L500.2500 ####[facility] [address] [place], [address] Hemoglobin (Bld) [Mass/Vol] 11.0 g/dL Low 12.0-15.0 [facility] Comment on above: Performed By: #### L 100.0100, L500.2500 ####[facility] [address] [place], [address] IG% 0.500 Normal 0.0-0.9 [facility] Comment on above: Result Comment: IG% - Immature Granulocytes (promyelocytes, myelocytes andmetamyelocytes) > 1% indicates that a LEFT SHIFT is Present. Performed By: #### L 100.0100, L500.2500 ####[facility] [address] [place], [address] Lymphocytes/100 WBC (Bld) 18.5 % Low 19-41 [facility] Comment on above: Performed By: #### L 100.0100, L500.2500 ####[facility] [address] [place], [address] MCH (RBC) [Entitic mass] 27.9 pg Normal 27.0-32.0 [facility] Comment on above: Performed By: #### L 100.0100, L500.2500 ####[facility] [address] [place], [address] MCHC (RBC) [Mass/Vol] 32.9 g/dL Normal 32-36 [facility] Comment on above: Performed By: #### L 100.0100, L500.2500 ####[facility] [address] [place], [address] MCV (RBC) [Entitic vol] 84.8 fL Normal 81-99 [facility] Comment on above: Performed By: #### L 100.0100, L500.2500 ####[facility] [address] [place], [address] Monocytes/100 WBC (Bld) 6.0 % Normal 0-10 [facility] Comment on above: Performed By: #### L 100.0100, L500.2500 ####[facility] [address] [place], [address] Neutrophils/100 WBC (Bld) 72.8 % High 47-70 [facility] Comment on above: Performed By: #### L 100.0100, L500.2500 ####[facility] [address] [place], [address] Nucleated RBC (Bld) [#/Vol] 0 10*3/uL Normal 0-5 [facility] Comment on above: Performed By: #### L 100.0100, L500.2500 ####[facility] [address] [place], [address] Platelet mean volume (Bld) [Entitic vol] 9.9 fL Normal 6.2-12.0 [facility] Comment on above: Performed By: #### L 100.0100, L500.2500 ####[facility] [address] [place], [address] Platelets (Bld) [#/Vol] 245 10*3/uL Normal 150-450 [facility] Comment on above: Performed By: #### L 100.0100, L500.2500 ####[facility] [address] [place], [address] RBC (Bld) [#/Vol] 3.94 10*6/uL Low 4.2-5.4 [facility] Comment on above: Performed By: #### L 100.0100, L500.2500 ####[facility] [address] [place], [address] RDW SD 43.5 fl Normal 35.1-43.9 [facility] Comment on above: Performed By: #### L 100.0100, L500.2500 ####[facility] [address] [place], [address] WBC (Bld) [#/Vol] 10.0 10*3/uL Normal 4.4-11.0 [facility] Comment on above: Performed By: #### L 100.0100, L500.2500 ####[facility] [address] [place], [address] Basic Metabolic Profile (BMP )on 09-09-2024 BUN/CRE 14.8 RATIO Normal 10-20 [facility] Comment on above: Performed By: #### L 500.2500, L100.0100, L501.5200 ####[facility] [address] [place], [address] Calcium [Mass/Vol] 8.5 mg/dL Normal 7.6-11.0 [facility] Comment on above: Performed By: #### L 500.2500, L100.0100, L501.5200 ####[facility] [address] [place], [address] Chloride [Moles/Vol] 104 mmol/L Normal 98-108 [facility] Comment on above: Performed By: #### L 500.2500, L100.0100, L501.5200 ####[facility] [address] [place], [address] CO2 [Moles/Vol] 16.0 mmol/L Low 21.0-32.0 [facility] Comment on above: Performed By: #### L 500.2500, L100.0100, L501.5200 ####[facility] [address] [place], [address] Creatinine [Mass/Vol] 0.99 mg/dL Normal 0.70-1.20 [facility] Comment on above: Performed By: #### L 500.2500, L100.0100, L501.5200 ####[facility] [address] [place], [address] ECRCL 72.12 ml/min Normal 50-250 [facility] Comment on above: Performed By: #### L 500.2500, L100.0100, L501.5200 ####[facility] [address] [place], [address] GAP 13 Normal 5-15 [facility] Comment on above: Performed By: #### L 500.2500, L100.0100, L501.5200 ####[facility] [address] [place], [address] GFR/1.73 sq M.predicted among non-blacks MDRD (S/P/Bld) [Vol rate/Area] 68 mL/min/{1.73_m2} Normal >60 [facility] Comment on above: Result Comment: mL/m in/1.73m2 CKD-EPI Creatinine Equation (2020) Performed By: #### L 500.2500, L100.0100, L501.5200 ####[facility] [address] [place], [address] Glucose [Mass/Vol] 156 mg/dL High 70-99 [facility] Comment on above: Performed By: #### L 500.2500, L100.0100, L501.5200 ####[facility] [address] [place], [address] Potassium [Moles/Vol] 3.7 mmol/L Normal 3.3-5.1 [facility] Comment on above: Performed By: #### L 500.2500, L100.0100, L501.5200 ####[facility] [address] [place], [address] Sodium [Moles/Vol] 132 mmol/L Low 133-145 [facility] Comment on above: Performed By: #### L 500.2500, L100.0100, L501.5200 ####[facility] [address] [place], [address] Urea nitrogen [Mass/Vol] 15 mg/dL Normal 4-19 [facility] Comment on above: Performed By: #### L 500.2500, L100.0100, L501.5200 ####[facility] [address] [place], [address] Bedside Glucoseon 09-09-2024 FINGERSTICK GLU 193 mg/dL High 74-106 [facility] Comment on above: Result Comment: TALIA GEMENT OF PATIENT CARE PER NURSING PROTOCOL Performed By: #### L 501.080 ####[facility] [address] [place], [address] FINGERSTICK GLU 227 mg/dL High 74-106 [facility] Comment on above: Result Comment: TALIA GEMENT OF PATIENT CARE PER NURSING PROTOCOL Performed By: #### L 501.080 ####[facility] [address] [place], [address] FINGERSTICK GLU 228 mg/dL High 74-106 [facility] Comment on above: Result Comment: TALIA GEMENT OF PATIENT CARE PER NURSING PROTOCOL Performed By: #### L 501.080 ####[facility] [address] [place], [address] FINGERSTICK GLU 194 mg/dL High 74-106 [facility] Comment on above: Result Comment: TALIA GEMENT OF PATIENT CARE PER NURSING PROTOCOL Performed By: #### L 501.080 ####[facility] [address] [place], [address] CBC W/Diff, Automatedon 04-0 8-2024 Absolute Lymph 2.64 X10 3/uL Normal 0.83-4.51 [facility] Comment on above: Performed By: #### L 500.2500, L100.0100, L501.5200 ####[facility] [address] [place], [address] Absolute Neut 7.4 X10 3/uL Normal 2.0-7.7 [facility] Comment on above: Performed By: #### L 500.2500, L100.0100, L501.5200 ####[facility] [address] [place], [address] Basophils/100 WBC (Bld) 0.7 % Normal 0-1 [facility] Comment on above: Performed By: #### L 500.2500, L100.0100, L501.5200 ####[facility] [address] [place], [address] Eosinophils/100 WBC (Bld) 2.3 % Normal 0-5 [facility] Comment on above: Performed By: #### L 500.2500, L100.0100, L501.5200 ####[facility] [address] [place], [address] Erythrocyte distribution width (RBC) [Ratio] 14.0 % Normal 11.6-14.6 [facility] Comment on above: Performed By: #### L 500.2500, L100.0100, L501.5200 ####[facility] [address] [place], [address] Hematocrit (Bld) [Volume fraction] 32.6 % Low 37-47 [facility] Comment on above: Performed By: #### L 500.2500, L100.0100, L501.5200 ####[facility] [address] [place], [address] Hemoglobin (Bld) [Mass/Vol] 10.9 g/dL Low 12.0-15.0 [facility] Comment on above: Performed By: #### L 500.2500, L100.0100, L501.5200 ####[facility] [address] [place], [address] IG% 0.500 Normal 0.0-0.9 [facility] Comment on above: Result Comment: IG% - Immature Granulocytes (promyelocytes, myelocytes andmetamyelocytes) > 1% indicates that a LEFT SHIFT is Present. Performed By: #### L 500.2500, L100.0100, L501.5200 ####[facility] [address] [place], [address] Lymphocytes/100 WBC (Bld) 23.9 % Normal 19-41 [facility] Comment on above: Performed By: #### L 500.2500, L100.0100, L501.5200 ####[facility] [address] [place], [address] MCH (RBC) [Entitic mass] 28.5 pg Normal 27.0-32.0 [facility] Comment on above: Performed By: #### L 500.2500, L100.0100, L501.5200 ####[facility] [address] [place], [address] MCHC (RBC) [Mass/Vol] 33.4 g/dL Normal 32-36 [facility] Comment on above: Performed By: #### L 500.2500, L100.0100, L501.5200 ####[facility] [address] [place], [address] MCV (RBC) [Entitic vol] 85.1 fL Normal 81-99 [facility] Comment on above: Performed By: #### L 500.2500, L100.0100, L501.5200 ####[facility] [address] [place], [address] Monocytes/100 WBC (Bld) 5.5 % Normal 0-10 [facility] Comment on above: Performed By: #### L 500.2500, L100.0100, L501.5200 ####[facility] [address] [place], [address] Neutrophils/100 WBC (Bld) 67.1 % Normal 47-70 [facility] Comment on above: Performed By: #### L 500.2500, L100.0100, L501.5200 ####[facility] [address] [place], [address] Nucleated RBC (Bld) [#/Vol] 0 10*3/uL Normal 0-5 [facility] Comment on above: Performed By: #### L 500.2500, L100.0100, L501.5200 ####[facility] [address] [place], [address] Platelet mean volume (Bld) [Entitic vol] 9.6 fL Normal 6.2-12.0 [facility] Comment on above: Performed By: #### L 500.2500, L100.0100, L501.5200 ####[facility] [address] [place], [address] Platelets (Bld) [#/Vol] 247 10*3/uL Normal 150-450 [facility] Comment on above: Performed By: #### L 500.2500, L100.0100, L501.5200 ####[facility] [address] [place], [address] RBC (Bld) [#/Vol] 3.83 10*6/uL Low 4.2-5.4 [facility] Comment on above: Performed By: #### L 500.2500, L100.0100, L501.5200 ####[facility] [address] [place], [address] RDW SD 43.3 fl Normal 35.1-43.9 [facility] Comment on above: Performed By: #### L 500.2500, L100.0100, L501.5200 ####[facility] [address] [place], [address] WBC (Bld) [#/Vol] 11.0 10*3/uL Normal 4.4-11.0 [facility] Comment on above: Performed By: #### L 500.2500, L100.0100, L501.5200 ####[facility] [address] [place], [address] Magnesiumon 09-09-2024 Magnesium [Mass/Vol] 2.9 mg/dL High 1.5-2.2 [facility] Comment on above: Performed By: #### L 500.2500, L100.0100, L501.5200 ####[facility] [address] [place], [address] Magnesium (Unsp spec) [Mass/ Vol]Ordered By: Brenda Posadas on 09-09-2024 Magnesium measurement (mass/volume) 2.9 mg/dL High 1.5-2.2 [facility] Magnesium measurement (mass/ volume)Ordered By: Brenda Posadas on 09-09-2024 Magnesium (Unsp spec) [Mass/Vol] 2.9 mg/dL High 1.5-2.2 [facility] Phosphoruson 09-09-2024 Phosphate [Mass/Vol] 3.2 mg/dL Normal 2.7-4.5 [facility] Comment on above: Performed By: #### L 501.2300 ####[facility] [address] [place], [address] Serum phosphorus measurement Ordered By: Brenda Posadas on 09-09-2024 Serum phosphorus measurement 3.2 mg/dL 2.7-4.5 [facility] Urinalysis, Completeon 09-09 BACTERIA 1+ /hpf Normal None Seen [facility] Comment on above: Order Comment: CLEAN CATCH Performed By: #### L 400.0001 ####[facility] [address] [place], [address] WBC 0-5 SEEN Normal 0-5 [facility] Comment on above: Order Comment: CLEAN CATCH Performed By: #### L 400.0001 ####[facility] [address] [place], [address] EPI,SQUAMOUS 0 SEEN Normal 5-10 [facility] Comment on above: Order Comment: CLEAN CATCH Performed By: #### L 400.0001 ####[facility] [address] [place], [address] Mucus Ql (Urine sed) 0 SEEN Normal [facility] Comment on above: Order Comment: CLEAN CATCH Performed By: #### L 400.0001 ####[facility] [address] [place], [address] RBC 0 SEEN Normal 0-5 [facility] Comment on above: Order Comment: CLEAN CATCH Performed By: #### L 400.0001 ####[facility] [address] [place], [address] Urine cultureOrdered By: [place] Posadas on 09-09-2024 Bacteria identified Cx Nom (U) Presumptive E. coli Abnormal [facility] Urine culture Presumptive E. coli Abnormal [facility] 1,25-dihydroxyvitamin D3 [Ma ss/Vol]Ordered By: Rosaura Rosa Maria on 09-08-2024 Serum or plasma calcitriol measurement (mass/volume) 29.9 pg/mL 24.8-81.5 [facility] ALP [Catalytic activity/Vol] Ordered By: [facility] Rosa Maria on 09-08-2024 Serum or plasma alkaline phosphatase measurement 105 U/L High 35-104 [facility] ALT [Catalytic activity/Vol] Ordered By: Rosaura Rosa Maria on 09-08-2024 Serum or plasma alanine aminotransferase (ALT) measurement 14 U/L <35 [facility] Albumin [Mass/Vol]Ordered By : [facility] on 09-08-2024 Serum or plasma albumin measurement (mass/volume) 3.1 g/dL Low 3.5-5.0 [facility] Albumin/Globulin [Mass ratio ]Ordered By: [facility] Rosa Maria on 09-08-2024 Serum or plasma albumin/globulin mass ratio 1.2 RATIO 0.9-2.4 [facility] Basic Metabolic Profile (BMP )on 09-08-2024 BUN/CRE 17.5 RATIO Normal 10-20 [facility] Comment on above: Performed By: #### L 500.2500 ####[facility] [address] [place], [address] Calcium [Mass/Vol] 9.2 mg/dL Normal 7.6-11.0 [facility] Comment on above: Performed By: #### L 500.2500 ####[facility] [address] [place], [address] Chloride [Moles/Vol] 100 mmol/L Normal 98-108 [facility] Comment on above: Performed By: #### L 500.2500 ####[facility] [address] [place], [address] CO2 [Moles/Vol] 21.1 mmol/L Normal 21.0-32.0 [facility] Comment on above: Performed By: #### L 500.2500 ####[facility] [address] [place], [address] Creatinine [Mass/Vol] 0.89 mg/dL Normal 0.70-1.20 [facility] Comment on above: Performed By: #### L 500.2500 ####[facility] [address] [place], [address] ECRCL 77.55 ml/min Normal 50-250 [facility] Comment on above: Performed By: #### L 500.2500 ####[facility] [address] [place], [address] GAP 13 Normal 5-15 [facility] Comment on above: Performed By: #### L 500.2500 ####[facility] [address] [place], [address] GFR/1.73 sq M.predicted among non-blacks MDRD (S/P/Bld) [Vol rate/Area] 78 mL/min/{1.73_m2} Normal >60 [facility] Comment on above: Result Comment: mL/m in/1.73m2 CKD-EPI Creatinine Equation (2020) Performed By: #### L 500.2500 ####[facility] [address] [place], [address] Glucose [Mass/Vol] 266 mg/dL High 70-99 [facility] Comment on above: Performed By: #### L 500.2500 ####[facility] [address] [place], [address] Potassium [Moles/Vol] 3.2 mmol/L Low 3.3-5.1 [facility] Comment on above: Performed By: #### L 500.2500 ####[facility] [address] [place], [address] Sodium [Moles/Vol] 134 mmol/L Normal 133-145 [facility] Comment on above: Performed By: #### L 500.2500 ####[facility] [address] [place], [address] Urea nitrogen [Mass/Vol] 16 mg/dL Normal 4-19 [facility] Comment on above: Performed By: #### L 500.2500 ####[facility] [address] [place], [address] Bedside Glucoseon 09-08-2024 FINGERSTICK GLU 245 mg/dL High 74-106 [facility] Comment on above: Result Comment: TALIA GEMENT OF PATIENT CARE PER NURSING PROTOCOL Performed By: #### L 501.080 ####[facility] [address] [place], [address] FINGERSTICK GLU 245 mg/dL High 74-106 [facility] Comment on above: Result Comment: TALIA GEMENT OF PATIENT CARE PER NURSING PROTOCOL Performed By: #### L 501.080 ####[facility] [address] [place], [address] FINGERSTICK GLU 418 mg/dL High 74-106 [facility] Comment on above: Result Comment: TALIA GEMENT OF PATIENT CARE PER NURSING PROTOCOL Performed By: #### L 501.080 ####[facility] [address] [place], [address] FINGERSTICK GLU 211 mg/dL High 74-106 [facility] Comment on above: Result Comment: TALIA GEMENT OF PATIENT CARE PER NURSING PROTOCOL Performed By: #### L 501.080 ####[facility] [address] [place], [address] FINGERSTICK GLU 249 mg/dL High 74-106 [facility] Comment on above: Result Comment: TALIA GEMENT OF PATIENT CARE PER NURSING PROTOCOL Performed By: #### L 501.080 ####[facility] [address] [place], [address] FINGERSTICK GLU 205 mg/dL High 74-106 [facility] Comment on above: Result Comment: TALIA GEMENT OF PATIENT CARE PER NURSING PROTOCOL Performed By: #### L 501.080 ####[facility] [address] [place], [address] FINGERSTICK GLU 250 mg/dL High 74-106 [facility] Comment on above: Result Comment: TALIA CHAMBERS OF PATIENT CARE PER NURSING PROTOCOL Performed By: #### L 501.080 ####[facility] [address] [place], [address] Bilirubin, totalOrdered By: Rosaura Crane on 09-08-2024 Bilirubin [Mass/Vol] 0.65 mg/dL 0.00-1.30 [facility] Bilirubin, total 0.65 mg/dL 0.00-1.30 [facility] Blood cultureOrdered By: [place] Posadas on 09-08-2024 Bacteria identified Cx Nom (Bld) No growth in 5 days. [facility] Blood culture No growth in 5 days. [facility] Bacteria identified Cx Nom (Bld) No growth in 5 days. [facility] Blood culture No growth in 5 days. [facility] CBC W/Diff, Automatedon 04-0 Absolute Lymph 2.06 X10 3/uL Normal 0.83-4.51 [facility] Comment on above: Performed By: #### L 3300.0960, L501.9520, L506.1001, L100.0100, L500.4050, L509.1000 ####[facility] [address] [place], [address] Absolute Neut 5.2 X10 3/uL Normal 2.0-7.7 [facility] Comment on above: Performed By: #### L 3300.0960, L501.9520, L506.1001, L100.0100, L500.4050, L509.1000 ####[facility] [address] [place], [address] Basophils/100 WBC (Bld) 0.9 % Normal 0-1 [facility] Comment on above: Performed By: #### L 3300.0960, L501.9520, L506.1001, L100.0100, L500.4050, L509.1000 ####[facility] [address] [place], [address] Eosinophils/100 WBC (Bld) 2.4 % Normal 0-5 [facility] Comment on above: Performed By: #### L 3300.0960, L501.9520, L506.1001, L100.0100, L500.4050, L509.1000 ####[facility] [address] [place], [address] Erythrocyte distribution width (RBC) [Ratio] 13.5 % Normal 11.6-14.6 [facility] Comment on above: Performed By: #### L 3300.0960, L501.9520, L506.1001, L100.0100, L500.4050, L509.1000 ####[facility] [address] [place], [address] Hematocrit (Bld) [Volume fraction] 36.8 % Low 37-47 [facility] Comment on above: Performed By: #### L 3300.0960, L501.9520, L506.1001, L100.0100, L500.4050, L509.1000 ####[facility] [address] [place], [address] Hemoglobin (Bld) [Mass/Vol] 12.2 g/dL Normal 12.0-15.0 [facility] Comment on above: Performed By: #### L 3300.0960, L501.9520, L506.1001, L100.0100, L500.4050, L509.1000 ####[facility] [address] [place], [address] IG% 0.400 Normal 0.0-0.9 [facility] Comment on above: Result Comment: IG% - Immature Granulocytes (promyelocytes, myelocytes andmetamyelocytes) > 1% indicates that a LEFT SHIFT is Present. Performed By: #### L 3300.0960, L501.9520, L506.1001, L100.0100, L500.4050, L509.1000 ####[facility] [address] [place], [address] Lymphocytes/100 WBC (Bld) 25.7 % Normal 19-41 [facility] Comment on above: Performed By: #### L 3300.0960, L501.9520, L506.1001, L100.0100, L500.4050, L509.1000 ####[facility] [address] [place], [address] MCH (RBC) [Entitic mass] 27.6 pg Normal 27.0-32.0 [facility] Comment on above: Performed By: #### L 3300.0960, L501.9520, L506.1001, L100.0100, L500.4050, L509.1000 ####[facility] [address] [place], [address] MCHC (RBC) [Mass/Vol] 33.2 g/dL Normal 32-36 [facility] Comment on above: Performed By: #### L 3300.0960, L501.9520, L506.1001, L100.0100, L500.4050, L509.1000 ####[facility] [address] [place], [address] MCV (RBC) [Entitic vol] 83.3 fL Normal 81-99 [facility] Comment on above: Performed By: #### L 3300.0960, L501.9520, L506.1001, L100.0100, L500.4050, L509.1000 ####[facility] [address] [place], [address] Monocytes/100 WBC (Bld) 6.0 % Normal 0-10 [facility] Comment on above: Performed By: #### L 3300.0960, L501.9520, L506.1001, L100.0100, L500.4050, L509.1000 ####[facility] [address] [place], [address] Neutrophils/100 WBC (Bld) 64.6 % Normal 47-70 [facility] Comment on above: Performed By: #### L 3300.0960, L501.9520, L506.1001, L100.0100, L500.4050, L509.1000 ####[facility] [address] [place], [address] Nucleated RBC (Bld) [#/Vol] 0 10*3/uL Normal 0-5 [facility] Comment on above: Performed By: #### L 3300.0960, L501.9520, L506.1001, L100.0100, L500.4050, L509.1000 ####[facility] [address] [place], [address] Platelet mean volume (Bld) [Entitic vol] 9.5 fL Normal 6.2-12.0 [facility] Comment on above: Performed By: #### L 3300.0960, L501.9520, L506.1001, L100.0100, L500.4050, L509.1000 ####[facility] [address] [place], [address] Platelets (Bld) [#/Vol] 275 10*3/uL Normal 150-450 [facility] Comment on above: Performed By: #### L 3300.0960, L501.9520, L506.1001, L100.0100, L500.4050, L509.1000 ####[facility] [address] [place], [address] RBC (Bld) [#/Vol] 4.42 10*6/uL Normal 4.2-5.4 [facility] Comment on above: Performed By: #### L 3300.0960, L501.9520, L506.1001, L100.0100, L500.4050, L509.1000 ####[facility] [address] [place], [address] RDW SD 40.7 fl Normal 35.1-43.9 [facility] Comment on above: Performed By: #### L 3300.0960, L501.9520, L506.1001, L100.0100, L500.4050, L509.1000 ####[facility] [address] [place], [address] WBC (Bld) [#/Vol] 8.0 10*3/uL Normal 4.4-11.0 [facility] Comment on above: Performed By: #### L 3300.0960, L501.9520, L506.1001, L100.0100, L500.4050, L509.1000 ####[facility] [address] [place], [address] CDIFF (PCR)on 09-08-2024 CDIFF Pending 027 027 NAP1-B1 Presumptive Negative *for epidemiolologic???use C. Diff PCR Negative- No toxigenic C. Diff Detected Normal [facility] Comment on above: Performed By: #### M 100.637, M100.6796 ####[facility] [address] [place], [address] Calcium ionizedOrdered By: Keerthi Posadas on 09-08-2024 Calcium ionized 1.25 mmol/L 1.09-1.30 [facility] Clostridium difficile detect ion by polymerase chain reactionOrdered By: Rosaura Crane on 09-08-2024 C. difficile DNA CRISSY+probe Ql (Unsp spec) [facility] Comprehensive Metabolic Prof osirison 09-08-2024 Albumin [Mass/Vol] 3.1 g/dL Low 3.5-5.0 [facility] Comment on above: Performed By: #### L 3300.0960, L501.9520, L506.1001, L100.0100, L500.4050, L509.1000 ####[facility] [address] [place], [address] Albumin/Globulin [Mass ratio] 1.2 {ratio} Normal 0.9-2.4 [facility] Comment on above: Performed By: #### L 3300.0960, L501.9520, L506.1001, L100.0100, L500.4050, L509.1000 ####[facility] [address] [place], [address] ALK PHOS 105 U/L High 35-104 [facility] Comment on above: Performed By: #### L 3300.0960, L501.9520, L506.1001, L100.0100, L500.4050, L509.1000 ####[facility] [address] [place], [address] ALT [Catalytic activity/Vol] 14 U/L Normal <=34 [facility] Comment on above: Performed By: #### L 3300.0960, L501.9520, L506.1001, L100.0100, L500.4050, L509.1000 ####[facility] [address] [place], [address] AST [Catalytic activity/Vol] 23 U/L Normal <=31 [facility] Comment on above: Performed By: #### L 3300.0960, L501.9520, L506.1001, L100.0100, L500.4050, L509.1000 ####[facility] [address] [place], [address] Bilirubin [Mass/Vol] 0.65 mg/dL Normal 0.00-1.30 [facility] Comment on above: Performed By: #### L 3300.0960, L501.9520, L506.1001, L100.0100, L500.4050, L509.1000 ####[facility] [address] [place], [address] BUN/CRE 16.9 RATIO Normal 10-20 [facility] Comment on above: Performed By: #### L 3300.0960, L501.9520, L506.1001, L100.0100, L500.4050, L509.1000 ####[facility] [address] [place], [address] Calcium [Mass/Vol] 8.8 mg/dL Normal 7.6-11.0 [facility] Comment on above: Performed By: #### L 3300.0960, L501.9520, L506.1001, L100.0100, L500.4050, L509.1000 ####[facility] [address] [place], [address] Chloride [Moles/Vol] 105 mmol/L Normal 98-108 [facility] Comment on above: Performed By: #### L 3300.0960, L501.9520, L506.1001, L100.0100, L500.4050, L509.1000 ####[facility] [address] [place], [address] CO2 [Moles/Vol] 20.3 mmol/L Low 21.0-32.0 [facility] Comment on above: Performed By: #### L 3300.0960, L501.9520, L506.1001, L100.0100, L500.4050, L509.1000 ####[facility] [address] [place], [address] Creatinine [Mass/Vol] 0.88 mg/dL Normal 0.70-1.20 [facility] Comment on above: Performed By: #### L 3300.0960, L501.9520, L506.1001, L100.0100, L500.4050, L509.1000 ####[facility] [address] [place], [address] ECRCL 78.43 ml/min Normal 50-250 [facility] Comment on above: Performed By: #### L 3300.0960, L501.9520, L506.1001, L100.0100, L500.4050, L509.1000 ####[facility] [address] [place], [address] GAP 11 Normal 5-15 [facility] Comment on above: Performed By: #### L 3300.0960, L501.9520, L506.1001, L100.0100, L500.4050, L509.1000 ####[facility] [address] [place], [address] GFR/1.73 sq M.predicted among non-blacks MDRD (S/P/Bld) [Vol rate/Area] 78 mL/min/{1.73_m2} Normal >60 [facility] Comment on above: Result Comment: mL/m in/1.73m2 CKD-EPI Creatinine Equation (2020) Performed By: #### L 3300.0960, L501.9520, L506.1001, L100.0100, L500.4050, L509.1000 ####[facility] [address] [place], [address] Globulin (S) [Mass/Vol] 2.7 g/dL Normal 2.2-4.2 [facility] Comment on above: Performed By: #### L 3300.0960, L501.9520, L506.1001, L100.0100, L500.4050, L509.1000 ####[facility] [address] [place], [address] Glucose [Mass/Vol] 203 mg/dL High 70-99 [facility] Comment on above: Performed By: #### L 3300.0960, L501.9520, L506.1001, L100.0100, L500.4050, L509.1000 ####[facility] [address] [place], [address] Potassium [Moles/Vol] 3.1 mmol/L Low 3.3-5.1 [facility] Comment on above: Performed By: #### L 3300.0960, L501.9520, L506.1001, L100.0100, L500.4050, L509.1000 ####[facility] [address] [place], [address] Sodium [Moles/Vol] 136 mmol/L Normal 133-145 [facility] Comment on above: Performed By: #### L 3300.0960, L501.9520, L506.1001, L100.0100, L500.4050, L509.1000 ####[facility] [address] [place], [address] T PROT 5.9 g/dL Normal 5.9-8.4 [facility] Comment on above: Performed By: #### L 3300.0960, L501.9520, L506.1001, L100.0100, L500.4050, L509.1000 ####[facility] [address] [place], [address] Urea nitrogen [Mass/Vol] 15 mg/dL Normal 4-19 [facility] Comment on above: Performed By: #### L 3300.0960, L501.9520, L506.1001, L100.0100, L500.4050, L509.1000 ####[facility] [address] [place], [address] ENTERIC PATHOGEN PANEL STOOL on 09-08-2024 EP PANEL CAMPYLOBACTER Not Detected Norovirus Not Detected Rotavirus Not Detected Salmonella Not Detected Shiga Toxin Not Detected Shigella sp. Not Detected VIBRIO Not Detected Yersinia Not Detected Normal [facility] Comment on above: Performed By: #### M 100.637, M100.6796 ####[facility] [address] [place], [place], [id number] Electrocardiogram reportOrde red By: Alli Brito on 09-08-2024 EKG study [facility] Work Phone: [phone] 09-08-2024 Ionized Calcium 1.08 mmol/L Low 1.09-1.30 [facility] Comment on above: Performed By: #### L 501.2276 ####[facility] [address] [place], [place], [address] Ionized Calcium 1.25 mmol/L Normal 1.09-1.30 [facility] Comment on above: Performed By: #### L 501.2276 ####[facility] [address] [place], [address] L509.7001on 09-08-2024 Procalcitonin 0.14 ng/mL High <=0.10 [facility] Comment on above: Result Comment: Inte rpretation:<0.10-0.25 ng/mL: Antibiotic therapy discouraged. Bacterialinfection unlikely.0.25-0.50 ng/mL: Antibiotic therapy encouraged. Bacterialinfection possible.>0.50 ng/mL: Antibiotic therapy strongly encouraged.Suggestive of presence of bacterial infection.PCT should always be interpreted in the clinical context ofthe patient. Therefore, clinicians should use the PCTresults in conjunction with other laboratory findings andclinical signs of the patient. Performed By: #### L 509.7001 ####[facility] [address] [place], [address] No Panel InformationOrdered By: Rosaura Crane on 09-08-2024 23 U/L <32 [facility] PTH intactOrdered By: Rosaura Crane on 09-08-2024 PTH intact 28 pg/mL [facility] PTHINon 09-08-2024 PTH 28 pg/mL Normal [facility] Comment on above: Performed By: #### L 3300.0960, L501.9520, L506.1001, L100.0100, L500.4050, L509.1000 ####[facility] [address] [place], [place], [address] Serum globulin measurementOr dered By: Rosaura Crane on 09-08-2024 Globulin (S) [Mass/Vol] 2.7 g/dL 2.2-4.2 [facility] Serum globulin measurement 2.7 g/dL 2.2-4.2 [facility] Serum or plasma alanine hamilton otransferase (ALT) measurementOrdered By: Rosaura Crane 09-08-2024 ALT [Catalytic activity/Vol] 14 U/L <35 [facility] Serum or plasma albumin xiomara urement (mass/volume)Ordered By: Rosaura Crane 09-08-2024 Albumin [Mass/Vol] 3.1 g/dL Low 3.5-5.0 [facility] Serum or plasma albumin/glob ulin mass ratioOrdered By: Rosaura Rosa Maria 09-08-2024 Albumin/Globulin [Mass ratio] 1.2 {ratio} 0.9-2.4 [facility] Serum or plasma alkaline sabiha sphatase measurementOrdered By: Rosaura Crane 09-08-2024 ALP [Catalytic activity/Vol] 105 U/L High 35-104 [facility] Serum or plasma calcitriol m easurement (mass/volume)Ordered By: Rosaura Crane 09-08-2024 1,25-dihydroxyvitamin D3 [Mass/Vol] 29.9 pg/mL 24.8-81.5 [facility] TSH DL <= 0.005 mIU/L QnOrde red By: Rosaura Crane on 09-08-2024 TSH Qn 2.460 uIU/mL 0.300-4.20 0 [facility] Serum or plasma thyroid stimulating hormone (TSH) measurement by high sensitivity met 2.460 uIU/mL 0.300-4.20 0 [facility] Thyroid Stim Hormone (TSH)on 09-08-2024 TSH 2.460 uIU/mL Normal 0.300-4.20 0 [facility] Comment on above: Performed By: #### L 3300.0960, L501.9520, L506.1001, L100.0100, L500.4050, L509.1000 ####[facility] [address] [place], [address] Total proteinOrdered By: Castro Crane on 09-08-2024 Protein [Mass/Vol] 5.9 g/dL 5.9-8.4 [facility] Total protein 5.9 g/dL 5.9-8.4 [facility] Vitamin D, 25-hydroxyOrdered By: Rosaura Crane on 09-08-2024 Vitamin D, 25-hydroxy 14.3 ng/mL Low 30-100 [facility] Vitamin D,25 Hydroxyon 09-08 Vitamin D 25-OH 14.3 ng/mL Low 30-100 [facility] Comment on above: Result Comment: Charissa min D StatusDeficiency: <20 ng/mL (50nmol/L)Insufficiency: 20-30 ng/mL (50-75 nmol/L)Sufficiency: 30-100 ng/mL (75-250 nmol/L)Toxicity: >100 ng/mL (>250 nmol/L) Performed By: #### L 3300.0960, L501.9520, L506.1001, L100.0100, L500.4050, L509.1000 ####[facility] [address], [address] 12 Lead EKGon 09-07-2024 12 Lead EKG Normal [facility] ALP [Catalytic activity/Vol] Ordered By: Davis Ibarra on 09-07-2024 Serum or plasma alkaline phosphatase measurement 85 U/L 35-104 [facility] ALT [Catalytic activity/Vol] Ordered By: Davis Ibarra on 09-07-2024 Serum or plasma alanine aminotransferase (ALT) measurement 11 U/L <35 [facility] Abdomen/Pelvis W IV Cont ONL Yon 09-07-2024 Abdomen/Pelvis W IV Cont ONLY Normal [facility] Absolute neutrophil countOrd ered By: Davis Ibarra on 09-07-2024 Absolute neutrophil count 6.6 X10^3/uL 2.0-7.7 [facility] Albumin [Mass/Vol]Ordered By : Davis Ibarra on 09-07-2024 Serum or plasma albumin measurement (mass/volume) 2.6 g/dL Low 3.5-5.0 [facility] Albumin/Globulin [Mass ratio ]Ordered By: Davis Ibarra on 09-07-2024 Serum or plasma albumin/globulin mass ratio 1.3 RATIO 0.9-2.4 [facility] Anion gap [Moles/Vol]Ordered By: Davis Ibarra on 09-07-2024 Anion gap in Serum or Plasma 9 5-15 [facility] BUN/creatinine ratioOrdered By: Davis Ibarra on 09-07-2024 BUN/creatinine ratio 18.5 RATIO 10-20 [facility] Basophil percentageOrdered B y: Davis Ibarra on 09-07-2024 Basophil percentage 0.5 % 0-1 [facility] Bilirubin, totalOrdered By: Davis Ibarra on 09-07-2024 Bilirubin, total 0.40 mg/dL 0.00-1.30 [facility] CBC W/Diff, Automatedon Absolute Lymph 1.22 X10 3/uL Normal 0.83-4.51 [facility] Comment on above: Order Comment: REUBEN No. PREVIOUS SPECIMEN REJECTED DUE TOPOSSIBLE CONTAMINATION. 09/07/241742 Eileen Mauricio. Performed By: #### L 501.2450, L100.0100, L500.4050 ####[facility] [address] [place], [place], [id number] Absolute Neut 6.6 X10 3/uL Normal 2.0-7.7 [facility] Comment on above: Order Comment: REUBEN W. PREVIOUS SPECIMEN REJECTED DUE TOPOSSIBLE CONTAMINATION. 09/07/241742 Eileen Mauricio. Performed By: #### L 501.2450, L100.0100, L500.4050 ####[facility] [address] [place], [address] Basophils/100 WBC (Bld) 0.5 % Normal 0-1 [facility] Comment on above: Order Comment: REDRA W. PREVIOUS SPECIMEN REJECTED DUE TOPOSSIBLE CONTAMINATION. 09/07/241742 Eileen Mauricio. Performed By: #### L 501.2450, L100.0100, L500.4050 ####[facility] [address] [place], [address] Eosinophils/100 WBC (Bld) 1.7 % Normal 0-5 [facility] Comment on above: Order Comment: REDRA W. PREVIOUS SPECIMEN REJECTED DUE TOPOSSIBLE CONTAMINATION. 09/07/241742 Eileen Mauricio. Performed By: #### L 501.2450, L100.0100, L500.4050 ####[facility] [address] [place], [address] Erythrocyte distribution width (RBC) [Ratio] 13.3 % Normal 11.6-14.6 [facility] Comment on above: Order Comment: REDRA W. PREVIOUS SPECIMEN REJECTED DUE TOPOSSIBLE CONTAMINATION. 09/07/241742 Eileen Mauricio. Performed By: #### L 501.2450, L100.0100, L500.4050 ####[facility] [address] [place], [address] Hematocrit (Bld) [Volume fraction] 31.8 % Low 37-47 [facility] Comment on above: Order Comment: REDRA W. PREVIOUS SPECIMEN REJECTED DUE TOPOSSIBLE CONTAMINATION. 09/07/241742 Eileen Mauricio. Performed By: #### L 501.2450, L100.0100, L500.4050 ####[facility] [address] [place], [address] Hemoglobin (Bld) [Mass/Vol] 10.8 g/dL Low 12.0-15.0 [facility] Comment on above: Order Comment: REDRA W. PREVIOUS SPECIMEN REJECTED DUE TOPOSSIBLE CONTAMINATION. 09/07/241742 Eileen Mauricio. Performed By: #### L 501.2450, L100.0100, L500.4050 ####[facility] [address] [place], [address] IG% 0.500 Normal 0.0-0.9 [facility] Comment on above: Order Comment: REDRA W. PREVIOUS SPECIMEN REJECTED DUE TOPOSSIBLE CONTAMINATION. 09/07/241742 Eileen Mauricio. Result Comment: IG% - Immature Granulocytes (promyelocytes, myelocytes andmetamyelocytes) > 1% indicates that a LEFT SHIFT is Present. Performed By: #### L 501.2450, L100.0100, L500.4050 ####[facility] [address] [place], [address] Lymphocytes/100 WBC (Bld) 14.5 % Low 19-41 [facility] Comment on above: Order Comment: REDRA W. PREVIOUS SPECIMEN REJECTED DUE TOPOSSIBLE CONTAMINATION. 09/07/241742 Eileen Mauricio. Performed By: #### L 501.2450, L100.0100, L500.4050 ####[facility] [address] [place], [address] MCH (RBC) [Entitic mass] 28.3 pg Normal 27.0-32.0 [facility] Comment on above: Order Comment: REDRA W. PREVIOUS SPECIMEN REJECTED DUE TOPOSSIBLE CONTAMINATION. 09/07/241742 Eileen Mauricio. Performed By: #### L 501.2450, L100.0100, L500.4050 ####[facility] [address] [place], [address] MCHC (RBC) [Mass/Vol] 34.0 g/dL Normal 32-36 [facility] Comment on above: Order Comment: REDRA W. PREVIOUS SPECIMEN REJECTED DUE TOPOSSIBLE CONTAMINATION. 09/07/241742 Eileen Mauricio. Performed By: #### L 501.2450, L100.0100, L500.4050 ####[facility] [address] [place], [address] MCV (RBC) [Entitic vol] 83.2 fL Normal 81-99 [facility] Comment on above: Order Comment: REDRA W. PREVIOUS SPECIMEN REJECTED DUE TOPOSSIBLE CONTAMINATION. 09/07/241742 Eileen Mauricio. Performed By: #### L 501.2450, L100.0100, L500.4050 ####[facility] [address] [place], [address] Monocytes/100 WBC (Bld) 5.0 % Normal 0-10 [facility] Comment on above: Order Comment: REDRA W. PREVIOUS SPECIMEN REJECTED DUE TOPOSSIBLE CONTAMINATION. 09/07/241742 Eileen Mauricio. Performed By: #### L 501.2450, L100.0100, L500.4050 ####[facility] [address] [place], [address] Neutrophils/100 WBC (Bld) 77.8 % High 47-70 [facility] Comment on above: Order Comment: REDRA W. PREVIOUS SPECIMEN REJECTED DUE TOPOSSIBLE CONTAMINATION. 09/07/241742 Eileen Mauricio. Performed By: #### L 501.2450, L100.0100, L500.4050 ####[facility] [address] [place], [address] Nucleated RBC (Bld) [#/Vol] 0 10*3/uL Normal 0-5 [facility] Comment on above: Order Comment: REDRA W. PREVIOUS SPECIMEN REJECTED DUE TOPOSSIBLE CONTAMINATION. 09/07/241742 Eileen Mauricio. Performed By: #### L 501.2450, L100.0100, L500.4050 ####[facility] [address] [place], [address] Platelet mean volume (Bld) [Entitic vol] 9.3 fL Normal 6.2-12.0 [facility] Comment on above: Order Comment: REDRA W. PREVIOUS SPECIMEN REJECTED DUE TOPOSSIBLE CONTAMINATION. 09/07/241742 Eileen Mauricio. Performed By: #### L 501.2450, L100.0100, L500.4050 ####[facility] [address] [place], [address] Platelets (Bld) [#/Vol] 235 10*3/uL Normal 150-450 [facility] Comment on above: Order Comment: REDRA W. PREVIOUS SPECIMEN REJECTED DUE TOPOSSIBLE CONTAMINATION. 09/07/241742 Eileen Mauricio. Performed By: #### L 501.2450, L100.0100, L500.4050 ####[facility] [address] [place], [address] RBC (Bld) [#/Vol] 3.82 10*6/uL Low 4.2-5.4 [facility] Comment on above: Order Comment: REDRA W. PREVIOUS SPECIMEN REJECTED DUE TOPOSSIBLE CONTAMINATION. 09/07/241742 Eileen Mauricio. Performed By: #### L 501.2450, L100.0100, L500.4050 ####[facility] [address] [place], [address] RDW SD 40.4 fl Normal 35.1-43.9 [facility] Comment on above: Order Comment: REDRA W. PREVIOUS SPECIMEN REJECTED DUE TOPOSSIBLE CONTAMINATION. 09/07/241742 Eileen Mauricio. Performed By: #### L 501.2450, L100.0100, L500.4050 ####[facility] [address] [place], [address] WBC (Bld) [#/Vol] 8.4 10*3/uL Normal 4.4-11.0 [facility] Comment on above: Order Comment: REDRA W. PREVIOUS SPECIMEN REJECTED DUE TOPOSSIBLE CONTAMINATION. 09/07/241742 Eileen Mauricio. Performed By: #### L 501.2450, L100.0100, L500.4050 ####[facility] [address] [place], [address] Hemoglobin (Bld) [Mass/Vol] 4.8 g/dL Invalid Interpretation Code 12.0-15.0 [facility] Comment on above: Result Comment: This specimen has been REJECTED due to Laboratory criteria:Contaminated/Leaked.EVANGELIST has been notified of need of recollection.09/07/241741 Eileen LozanoCRITICAL VALUE CALLED TO César RENO09/07/24 1717 Li Coronel.RESULTS READ BACK BY SAME. Performed By: #### L 100.0100, L501.2450, L500.4050 ####[facility] [address] [place], [address] Absolute Lymph 0.64 X10 3/uL Low 0.83-4.51 [facility] Comment on above: Result Comment: This specimen has been REJECTED due to Laboratory criteria:Contaminated/Leaked.EVANGELIST has been notified of need of recollection.09/07/241741 Eileen Mauricio Performed By: #### L 100.0100, L501.2450, L500.4050 ####[facility] [address] [place], [address] Absolute Neut 3.3 X10 3/uL Normal 2.0-7.7 [facility] Comment on above: Result Comment: This specimen has been REJECTED due to Laboratory criteria:Contaminated/Leaked.EVANGELIST has been notified of need of recollection.09/07/241741 Eileen Mauricio Performed By: #### L 100.0100, L501.2450, L500.4050 ####[facility] [address] [place], [address] BASO# 0.00 X10 3/uL Normal [facility] Comment on above: Result Comment: This specimen has been REJECTED due to Laboratory criteria:Contaminated/Leaked.EVANGELIST has been notified of need of recollection.09/07/241741 Eileen Mauricio Performed By: #### L 100.0100, L501.2450, L500.4050 ####[facility] [address] [place], [address] Basophils/100 WBC (Bld) 0.0 % Normal 0-1 [facility] Comment on above: Result Comment: This specimen has been REJECTED due to Laboratory criteria:Contaminated/Leaked.EVANGELIST has been notified of need of recollection.09/07/241741 Eileen Mauricio Performed By: #### L 100.0100, L501.2450, L500.4050 ####[facility] [address] [place], [address] EOS# 0.05 X10 3/uL Normal [facility] Comment on above: Result Comment: This specimen has been REJECTED due to Laboratory criteria:Contaminated/Leaked.EVANGELIST has been notified of need of recollection.09/07/241741 Eileen Mauricio Performed By: #### L 100.0100, L501.2450, L500.4050 ####[facility] [address] [place], [address] Eosinophils/100 WBC (Bld) 1.2 % Normal 0-5 [facility] Comment on above: Result Comment: This specimen has been REJECTED due to Laboratory criteria:Contaminated/Leaked.EVANGELIST has been notified of need of recollection.09/07/241741 Eileen Mauricio Performed By: #### L 100.0100, L501.2450, L500.4050 ####[facility] [address] [place], [address] Erythrocyte distribution width (RBC) [Ratio] 13.4 % Normal 11.6-14.6 [facility] Comment on above: Result Comment: This specimen has been REJECTED due to Laboratory criteria:Contaminated/Leaked.EVANGELIST has been notified of need of recollection.09/07/241741 Eileen Mauricio Performed By: #### L 100.0100, L501.2450, L500.4050 ####[facility] [address] [place], [address] Hematocrit (Bld) [Volume fraction] 14.7 % Low 37-47 [facility] Comment on above: Result Comment: This specimen has been REJECTED due to Laboratory criteria:Contaminated/Leaked.EVANGELIST has been notified of need of recollection.09/07/241741 Eileen Mauricio Performed By: #### L 100.0100, L501.2450, L500.4050 ####[facility] [address] [place], [address] IG# 0.030 X10 3/uL High 0.0-0.0 [facility] Comment on above: Result Comment: This specimen has been REJECTED due to Laboratory criteria:Contaminated/Leaked.EVANGELIST has been notified of need of recollection.09/07/241741 Eileen Mauricio Performed By: #### L 100.0100, L501.2450, L500.4050 ####[facility] [address] [place], [address] IG% 0.700 Normal 0.0-0.9 [facility] Comment on above: Result Comment: This specimen has been REJECTED due to Laboratory criteria:Contaminated/Leaked.EVANGELIST has been notified of need of recollection.09/07/241741 Eileen LozanoIG% - Immature Granulocytes (promyelocytes, myelocytes andmetamyelocytes) > 1% indicates that a LEFT SHIFT is Present. Performed By: #### L 100.0100, L501.2450, L500.4050 ####[facility] [address] [place], [address] LYMPH# 0.64 X10 3/ul Low 0.83-4.51 [facility] Comment on above: Result Comment: This specimen has been REJECTED due to Laboratory criteria:Contaminated/Leaked.EVANGELIST has been notified of need of recollection.09/07/241741 Eileen Mauricio Performed By: #### L 100.0100, L501.2450, L500.4050 ####[facility] [address] [place], [address] Lymphocytes/100 WBC (Bld) 15.2 % Low 19-41 [facility] Comment on above: Result Comment: This specimen has been REJECTED due to Laboratory criteria:Contaminated/Leaked.EVANGELIST has been notified of need of recollection.09/07/241741 Eileen Mauricio Performed By: #### L 100.0100, L501.2450, L500.4050 ####[facility] [address] [place], [address] MCH (RBC) [Entitic mass] 28.4 pg Normal 27.0-32.0 [facility] Comment on above: Result Comment: This specimen has been REJECTED due to Laboratory criteria:Contaminated/Leaked.EVANGELIST has been notified of need of recollection.09/07/241741 Eileen Mauricio Performed By: #### L 100.0100, L501.2450, L500.4050 ####[facility] [address] [place], [address] MCHC (RBC) [Mass/Vol] 32.7 g/dL Normal 32-36 [facility] Comment on above: Result Comment: This specimen has been REJECTED due to Laboratory criteria:Contaminated/Leaked.EVANGELIST has been notified of need of recollection.09/07/241741 Eileen Mauricio Performed By: #### L 100.0100, L501.2450, L500.4050 ####[facility] [address] [place], [address] MCV (RBC) [Entitic vol] 87.0 fL Normal 81-99 [facility] Comment on above: Result Comment: This specimen has been REJECTED due to Laboratory criteria:Contaminated/Leaked.EVANGELIST has been notified of need of recollection.09/07/241741 Eileen Mauricio Performed By: #### L 100.0100, L501.2450, L500.4050 ####[facility] [address] [place], [address] MONO # 0.24 X10 3/uL Normal [facility] Comment on above: Result Comment: This specimen has been REJECTED due to Laboratory criteria:Contaminated/Leaked.PEPPER has been notified of need of recollection.09/07/241741 Eileen Mauricio Performed By: #### L 100.0100, L501.2450, L500.4050 ####[facility] [address] [place], [address] Monocytes/100 WBC (Bld) 5.7 % Normal 0-10 [facility] Comment on above: Result Comment: This specimen has been REJECTED due to Laboratory criteria:Contaminated/Leaked.EVANGELIST has been notified of need of recollection.09/07/241741 Eileen Mauricio Performed By: #### L 100.0100, L501.2450, L500.4050 ####[facility] [address] [place], [address] Neutrophil # 3.26 X10 3/uL Normal 2.7-7.7 [facility] Comment on above: Result Comment: This specimen has been REJECTED due to Laboratory criteria:Contaminated/Leaked.EVANGELIST has been notified of need of recollection.09/07/241741 Eileen Mauricio Performed By: #### L 100.0100, L501.2450, L500.4050 ####[facility] [address] [place], [address] Neutrophils/100 WBC (Bld) 77.2 % High 47-70 [facility] Comment on above: Result Comment: This specimen has been REJECTED due to Laboratory criteria:Contaminated/Leaked.EVANGELIST has been notified of need of recollection.09/07/241741 Eileen Mauricio Performed By: #### L 100.0100, L501.2450, L500.4050 ####[facility] [address] [place], [address] Nucleated RBC (Bld) [#/Vol] 0 10*3/uL Normal 0-5 [facility] Comment on above: Result Comment: This specimen has been REJECTED due to Laboratory criteria:Contaminated/Leaked.EVANGELIST has been notified of need of recollection.09/07/241741 Eileen Mauricio Performed By: #### L 100.0100, L501.2450, L500.4050 ####[facility] [address] [place], [address] Platelet mean volume (Bld) [Entitic vol] 8.8 fL Normal 6.2-12.0 [facility] Comment on above: Result Comment: This specimen has been REJECTED due to Laboratory criteria:Contaminated/Leaked.EVANGELIST has been notified of need of recollection.09/07/241741 Eileen Mauricio Performed By: #### L 100.0100, L501.2450, L500.4050 ####[facility] [address] [place], [address] Platelets (Bld) [#/Vol] 102 10*3/uL Low 150-450 [facility] Comment on above: Result Comment: This specimen has been REJECTED due to Laboratory criteria:Contaminated/Leaked.EVANGELIST has been notified of need of recollection.09/07/241741 Eileen Mauricio Performed By: #### L 100.0100, L501.2450, L500.4050 ####[facility] [address] [place], [address] POSITIVE COUNT YES Abnormal [facility] Comment on above: Result Comment: This specimen has been REJECTED due to Laboratory criteria:Contaminated/Leaked.EVANGELIST has been notified of need of recollection.09/07/241741 Eileen Mauricio Performed By: #### L 100.0100, L501.2450, L500.4050 ####[facility] [address] [place], [address] RBC (Bld) [#/Vol] 1.69 10*6/uL Low 4.2-5.4 [facility] Comment on above: Result Comment: This specimen has been REJECTED due to Laboratory criteria:Contaminated/Leaked.EVANGELIST has been notified of need of recollection.09/07/241741 Eileen Mauricio Performed By: #### L 100.0100, L501.2450, L500.4050 ####[facility] [address] [place], [address] RDW SD 42.5 fl Normal 35.1-43.9 [facility] Comment on above: Result Comment: This specimen has been REJECTED due to Laboratory criteria:Contaminated/Leaked.EVANGELIST has been notified of need of recollection.09/07/241741 Eileen Mauricio Performed By: #### L 100.0100, L501.2450, L500.4050 ####[facility] [address] [place], [address] WBC (Bld) [#/Vol] 4.2 10*3/uL Low 4.4-11.0 [facility] Comment on above: Result Comment: This specimen has been REJECTED due to Laboratory criteria:Contaminated/Leaked.EVANGELIST has been notified of need of recollection.09/07/241741 Eileen Mauricio Performed By: #### L 100.0100, L501.2450, L500.4050 ####[facility] [address] [place], [address] Calcium [Mass/Vol]Ordered By : Davis Ibarra on 09-07-2024 Serum or plasma calcium measurement (mass/volume) 6.5 mg/dL Low 7.6-11.0 [facility] Carbon dioxide, total [Moles /volume] in Central venous bloodOrdered By: Davis Ibarra on 09-07-2024 Carbon dioxide, total [Moles/volume] in Central venous blood 18.5 mmol/L Low 21.0-32.0 [facility] Chloride assayOrdered By: Matt Ibarra on 09-07-2024 Chloride assay 108 mmol/L 98-108 [facility] Comprehensive Metabolic Prof ilon 09-07-2024 Potassium [Moles/Vol] 2.5 mmol/L Invalid Interpretation Code 3.3-5.1 [facility] Comment on above: Order Comment: REUBEN [...] Performed By: #### L 501.2450, L100.0100, L500.4050 ####[facility] [address] [place], [address] ALB Normal 3.5-5.0 [facility] Comment on above: Result Comment: This specimen has been REJECTED due to Laboratory criteria:Contaminated/Leaked.EVANGELIST has been notified of need of recollection.09/07/241741 Eileen Mauricio Performed By: #### L 100.0100, L501.2450, L500.4050 ####[facility] [address] [place], [address] ALK PHOS Normal 35-104 [facility] Comment on above: Result Comment: This specimen has been REJECTED due to Laboratory criteria:Contaminated/Leaked.EVANGELIST has been notified of need of recollection.09/07/241741 Eileen Mauricio Performed By: #### L 100.0100, L501.2450, L500.4050 ####[facility] [address] [place], [address] ALT Normal <=34 [facility] Comment on above: Result Comment: This specimen has been REJECTED due to Laboratory criteria:Contaminated/Leaked.EVANGELIST has been notified of need of recollection.09/07/241741 Eileen Mauricio Performed By: #### L 100.0100, L501.2450, L500.4050 ####[facility] [address] [place], [address] AST Normal <=31 [facility] Comment on above: Result Comment: This specimen has been REJECTED due to Laboratory criteria:Contaminated/Leaked.EVANGELIST has been notified of need of recollection.09/07/241741 Eileen Mauricio Performed By: #### L 100.0100, L501.2450, L500.4050 ####[facility] [address] [place], [address] BUN Normal 4-19 [facility] Comment on above: Result Comment: This specimen has been REJECTED due to Laboratory criteria:Contaminated/Leaked.EVANGELIST has been notified of need of recollection.09/07/241741 Eileen Mauricio Performed By: #### L 100.0100, L501.2450, L500.4050 ####[facility] [address] [place], [address] BUN/CRE Normal 10-20 [facility] Comment on above: Result Comment: This specimen has been REJECTED due to Laboratory criteria:Contaminated/Leaked.EVANGELIST has been notified of need of recollection.09/07/241741 Eileen Mauricio Performed By: #### L 100.0100, L501.2450, L500.4050 ####[facility] [address] [place], [address] Calcium Normal 7.6-11.0 [facility] Comment on above: Result Comment: This specimen has been REJECTED due to Laboratory criteria:Contaminated/Leaked.EVANGELIST has been notified of need of recollection.09/07/241741 Eileen Mauricio Performed By: #### L 100.0100, L501.2450, L500.4050 ####[facility] [address] [place], [address] CL Normal 98-108 [facility] Comment on above: Result Comment: This specimen has been REJECTED due to Laboratory criteria:Contaminated/Leaked.EVANGELIST has been notified of need of recollection.09/07/241741 Eileen Mauricio Performed By: #### L 100.0100, L501.2450, L500.4050 ####[facility] [address] [place], [address] CO2 Normal 21.0-32.0 [facility] Comment on above: Result Comment: This specimen has been REJECTED due to Laboratory criteria:Contaminated/Leaked.EVANGELIST has been notified of need of recollection.09/07/241741 Eileen Mauricio Performed By: #### L 100.0100, L501.2450, L500.4050 ####[facility] [address] [place], [address] CREAT,SERUM Normal 0.70-1.20 [facility] Comment on above: Result Comment: This specimen has been REJECTED due to Laboratory criteria:Contaminated/Leaked.EVANGELIST has been notified of need of recollection.09/07/241741 Eileen Mauricio Performed By: #### L 100.0100, L501.2450, L500.4050 ####[facility] [address] [place], [address] eGFR Normal >60 [facility] Comment on above: Result Comment: This specimen has been REJECTED due to Laboratory criteria:Contaminated/Leaked.EVANGELIST has been notified of need of recollection.09/07/241741 Eileen Mauricio Performed By: #### L 100.0100, L501.2450, L500.4050 ####[facility] [address] [place], [address] GAP Normal 5-15 [facility] Comment on above: Result Comment: This specimen has been REJECTED due to Laboratory criteria:Contaminated/Leaked.EVANGELIST has been notified of need of recollection.09/07/241741 Eileen Mauricio Performed By: #### L 100.0100, L501.2450, L500.4050 ####[facility] [address] [place], [address] GLU Normal 70-99 [facility] Comment on above: Result Comment: This specimen has been REJECTED due to Laboratory criteria:Contaminated/Leaked.EVANGELIST has been notified of need of recollection.09/07/241741 Eileen Mauricio Performed By: #### L 100.0100, L501.2450, L500.4050 ####[facility] [address] [place], [address] Potassium Normal 3.3-5.1 [facility] Comment on above: Result Comment: This specimen has been REJECTED due to Laboratory criteria:Contaminated/Leaked.EVANGELIST has been notified of need of recollection.09/07/241741 Eileen Mauricio Performed By: #### L 100.0100, L501.2450, L500.4050 ####[facility] [address] [place], [address] T BILI Normal 0.00-1.30 [facility] Comment on above: Result Comment: This specimen has been REJECTED due to Laboratory criteria:Contaminated/Leaked.EVANGELIST has been notified of need of recollection.09/07/241741 Eileen Mauricio Performed By: #### L 100.0100, L501.2450, L500.4050 ####[facility] [address] [place], [address] T PROT Normal 5.9-8.4 [facility] Comment on above: Result Comment: This specimen has been REJECTED due to Laboratory criteria:Contaminated/Leaked.EVANGELIST has been notified of need of recollection.09/07/241741 Eileen Mauricio Performed By: #### L 100.0100, L501.2450, L500.4050 ####[facility] [address] [place], [address] Comprehensive Metabolic Profil Normal 133-145 [facility] Comment on above: Result Comment: This specimen has been REJECTED due to Laboratory criteria:Contaminated/Leaked.PEPPER has been notified of need of recollection.09/07/24 1742 Eileen Mauricio Performed By: #### L 100.0100, L501.2450, L500.4050 ####[facility] [address] [place], [address] Creatinine [Mass/Vol]Ordered By: Davis Ibarra on 09-07-2024 Serum creatinine measurement (mass/volume) 0.92 mg/dL 0.70-1.20 [facility] Emergency Department Summary on 09-07-2024 Emergency Department Summary Normal [facility] Eosinophil percentageOrdered By: Davis Ibarra on 09-07-2024 Eosinophil percentage 1.7 % 0-5 [facility] Erythrocyte distribution wid th (RBC) [Ratio]Ordered By: Davis Ibarra on 09-07-2024 Erythrocyte distribution width ratio 13.3 % 11.6-14.6 [facility] Erythrocyte distribution width standard deviation 40.4 fl 35.1-43.9 [facility] Estimation of creatinine sylvain aranceOrdered By: Davis Ibarra on 09-07-2024 Estimation of creatinine clearance 76.05 ml/min 50-250 [facility] GFR/1.73 sq M.predicted estephanie g non-blacks MDRD (S/P/Bld) [Vol rate/Area]Ordered By: Davis Ibarra on 09-07-2024 Glomerular filtration rate (GFR) estimation/1.73 sq m using serum, plasma, or whole b 74 >60 [facility] Glucose [Mass/Vol]Ordered By : Davis Ibarra on 09-07-2024 Serum glucose measurement (mass/volume) 283 mg/dL High 70-99 [facility] H AND P Exam - Hospitaliston 09-07-2024 H&P Exam - Hospitalist Normal [facility] Hematocrit Auto (Bld) [Volum e fraction]Ordered By: Davis Ibarra on 09-07-2024 Automated blood hematocrit (percentage) 31.8 % Low 37-47 [facility] Hemoglobin measurementOrdere d By: Davis Ibarra on 09-07-2024 Hemoglobin measurement 10.8 g/dL Low 12.0-15.0 [facility] Immature granulocytes/100 WB C Auto (Bld)Ordered By: Davis Ibarra on 09-07-2024 Automated immature granulocyte percentage 0.500 % 0.0-0.9 [facility] Lipaseon 09-07-2024 Lipase [Catalytic activity/Vol] 28 U/L Normal 13-75 [facility] Comment on above: Order Comment: REUBEN Gomez PREVIOUS SPECIMEN REJECTED DUE TOPOSSIBLE CONTAMINATION. 09/07/241742 Eileen Mauricio. Result Comment: Gege edgar note:LIPASE revised reference range effective 22.New Lipase methodology. Expected to produce lower valuesthan the previous assay method.NEW Reference Range: 13 - 75 U/L Performed By: #### L 501.2450, L100.0100, L500.4050 ####[facility] [address] [place], [address] Lipase [Catalytic activity/Vol] 12 U/L Low 13-75 [facility] Comment on above: Order Comment: This [...] Performed By: #### L 100.0100, L501.2450, L500.4050 ####[facility] [address] [place], [address] Lipase measurementOrdered By : Davis Ibarra on 09-07-2024 Lipase measurement 28 U/L 13-75 [facility] Lymphocytes Auto (Unsp spec) [#/Vol]Ordered By: Davis Ibarra on 09-07-2024 Absolute lymphocyte count 1.22 X10^3/uL 0.83-4.51 [facility] Lymphocytes/100 WBC Auto (Un sp spec)Ordered By: Davis Ibarra on 09-07-2024 Automated lymphocyte count as percentage of total leukocytes 14.5 % Low 19-41 [facility] MCV (RBC) [Entitic vol]Order ed By: Davis Ibarra on 09-07-2024 MCV (mean corpuscular volume) determination 83.2 fL 81-99 [facility] Magnesiumon 09-07-2024 Magnesium [Mass/Vol] 1.2 mg/dL Low 1.5-2.2 [facility] Comment on above: Performed By: #### L 501.5200 ####[facility] [address] [place], [address] Magnesium (Unsp spec) [Mass/ Vol]Ordered By: Davis Ibarra on 09-07-2024 Magnesium measurement (mass/volume) 1.2 mg/dL Low 1.5-2.2 [facility] Mean corpuscular hemoglobin (MCH) determinationOrdered By: Davis Ibarra on 09-07-2024 Mean corpuscular hemoglobin (MCH) determination 28.3 pg 27.0-32.0 [facility] Mean corpuscular hemoglobin concentration (MCHC) determinationOrdered By: Davis Ibarra on 09-07-2024 Mean corpuscular hemoglobin concentration (MCHC) determination 34.0 g/dL 32-36 [facility] Mean platelet volume determi nationOrdered By: Davis Ibarra on 09-07-2024 Mean platelet volume determination 9.3 fl 6.2-12.0 [facility] Monocyte percentageOrdered B y: Davis Ibarra on 09-07-2024 Monocyte percentage 5.0 % 0-10 [facility] Neutrophil percentageOrdered By: Davis Ibarra on 09-07-2024 Neutrophil percentage 77.8 % High 47-70 [facility] No Panel InformationOrdered By: Davis Ibarra on 09-07-2024 19 U/L <32 [facility] Nucleated red blood cell per centageOrdered By: Davis Ibarra on 09-07-2024 Nucleated red blood cell percentage 0 % 0-5 [facility] Phosphoruson 09-07-2024 Phosphate [Mass/Vol] 2.5 mg/dL Low 2.7-4.5 [facility] Comment on above: Performed By: #### L 501.2300 ####[facility] [address] [place], [address] Platelet countOrdered By: Matt Ibarra on 09-07-2024 Platelet count 235 K/mm3 150-450 [facility] Potassium (Unsp spec) [Mass/ Vol]Ordered By: Davis Ibarra on 09-07-2024 Potassium measurement (mass/volume) 2.5 mmol/L Low 3.3-5.1 [facility] Procalcitonin IA [Mass/Vol]O rdered By: Rosaura Crane on 09-07-2024 Procalcitonin [Mass/volume] in Serum or Plasma by Immunoassay 0.14 ng/mL High <0.11 [facility] Procalcitonin [Mass/volume] in Serum or Plasma by ImmunoassayOrdered By: Rosaura Crane on 09-07-2024 Procalcitonin IA [Mass/Vol] 0.14 ng/mL High <0.11 [facility] RBC Auto (Bld) [#/Vol]Ordere d By: Davis Ibarra on 09-07-2024 Automated blood erythrocyte count 3.82 M/mm3 Low 4.2-5.4 [facility] Serum globulin measurementOr dered By: Davis Ibarra on 09-07-2024 Serum globulin measurement 2.1 g/dL Low 2.2-4.2 [facility] Sodium levelOrdered By: Bhupendra Ibarra on 09-07-2024 Sodium level 136 mmol/L 133-145 [facility] Total proteinOrdered By: Latoya Ibarra on 09-07-2024 Total protein 4.7 g/dL Low 5.9-8.4 [facility] Type AND Screenon 09-07-2024 Ab SCREEN GEL Negative Normal [facility] Comment on above: Order Comment: A Performed By: #### B TS ####[facility] [address] [place], [address] Urea nitrogen [Mass/Vol]Orde red By: Davis Ibarra on 09-07-2024 Serum or plasma urea nitrogen measurement (mass/volume) 17 mg/dL 4- [facility] Urinalysis, Completeon 09-07 BACTERIA Normal None Seen [facility] Comment on above: Order Comment: UA CO MPLETED ON LEAN CATCH Result Comment: @COM PLETED ON 09/12 Performed By: #### L 400.0001 ####[facility] [address] [place], [address] BILIRUBIN URINE Normal Negative [facility] Comment on above: Order Comment: UA CO MPLETED ON LEAN CATCH Result Comment: @COM PLETED ON 09/12 Performed By: #### L 400.0001 ####[facility] [address] [place], [address] Clarity (U) Normal Clear [facility] Comment on above: Order Comment: UA CO MPLETED ON LEAN CATCH Result Comment: @COM PLETED ON 09/12 Performed By: #### L 400.0001 ####[facility] [address] [place], [address] Color (U) Normal Yellow [facility] Comment on above: Order Comment: UA CO MPLETED ON LEAN CATCH Result Comment: @COM PLETED ON 09/12 Performed By: #### L 400.0001 ####[facility] [address] [place], [address] EPI,SQUAMOUS Normal 5-10 [facility] Comment on above: Order Comment: UA CO MPLETED ON 11CLEAN CATCH Result Comment: @COM PLETED ON 09/12 Performed By: #### L 400.0001 ####[facility] [address] [place], [address] GLUCOSE, UR Normal Normal [facility] Comment on above: Order Comment: UA CO MPLETED ON LEAN CATCH Result Comment: @COM PLETED ON 09/12 Performed By: #### L 400.0001 ####[facility] [address] [place], [address] KETONE UR Normal Negative [facility] Comment on above: Order Comment: UA CO MPLETED ON LEAN CATCH Result Comment: @COM PLETED ON 09/12 Performed By: #### L 400.0001 ####[facility] [address] [place], [address] LEUK ESTERASE Normal Negative [facility] Comment on above: Order Comment: UA CO MPLETED ON LEAN CATCH Result Comment: @COM PLETED ON 09/12 Performed By: #### L 400.0001 ####[facility] [address] [place], [address] Mucus Ql (Urine sed) Normal [facility] Comment on above: Order Comment: UA CO MPLETED ON LEAN CATCH Result Comment: @COM PLETED ON 09/12 Performed By: #### L 400.0001 ####[facility] [address] [facility] [address] Nitrite Ql (U) Normal Negative [facility] Comment on above: Order Comment: UA CO MPLETED ON LEAN CATCH Result Comment: @COM PLETED ON 09/12 Performed By: #### L 400.0001 ####[facility] [address] [place], [address] OCCULT BLOOD-UR Normal Negative [facility] Comment on above: Order Comment: UA CO MPLETED ON LEAN CATCH Result Comment: @COM PLETED ON 09/12 Performed By: #### L 400.0001 ####[facility] [address] [place], [address] pH UR Normal 5.0 - 8.0 [facility] Comment on above: Order Comment: UA CO MPLETED ON LEAN CATCH Result Comment: @COM PLETED ON 09/12 Performed By: #### L 400.0001 ####[facility] [address] [place], [address] PROT DIPSTX Normal Negative [facility] Comment on above: Order Comment: UA CO MPLETED ON LEAN CATCH Result Comment: @COM PLETED ON 09/12 Performed By: #### L 400.0001 ####[facility] [address] [place], [address] RBC Normal 0-5 [facility] Comment on above: Order Comment: UA CO MPLETED ON LEAN CATCH Result Comment: @COM PLETED ON 09/12 Performed By: #### L 400.0001 ####[facility] [address] [place], [address] SP.GR. DIPSTX Normal 1.002-1.03 0 [facility] Comment on above: Order Comment: UA CO MPLETED ON LEAN CATCH Result Comment: @COM PLETED ON 09/12 Performed By: #### L 400.0001 ####[facility] [address] [place], [address] UR Preservative Normal [facility] Comment on above: Order Comment: UA CO MPLETED ON LEAN CATCH Result Comment: @COM PLETED ON 09/12 Performed By: #### L 400.0001 ####[facility] [address] [place], [address] UROBILI Normal Normal [facility] Comment on above: Order Comment: UA CO MPLETED ON LEAN CATCH Result Comment: @COM PLETED ON 09/12 Performed By: #### L 400.0001 ####[facility] [address] [place], [address] WBC Normal 0-5 [facility] Comment on above: Order Comment: UA CO MPLETED ON LEAN CATCH Result Comment: @COM PLETED ON 09/12 Performed By: #### L 400.0001 ####[facility] [address] [place], [address] White blood cell (WBC) count Ordered By: Davis Ibarra on 09-07-2024 White blood cell (WBC) count 8.4 K/mm3 4.4-11.0 [facility] ALP [Catalytic activity/Vol] Ordered By: Zack Card on 09-05-2024 Serum or plasma alkaline phosphatase measurement 141 U/L High 35-104 [facility] ALT [Catalytic activity/Vol] Ordered By: Zack Card on 09-05-2024 Serum or plasma alanine aminotransferase (ALT) measurement 22 U/L <35 [facility] Absolute lymphocyte countOrd ered By: Zack Card on 09-05-2024 Lymphocytes Auto (Unsp spec) [#/Vol] 1.39 10*3/uL 0.83-4.51 [facility] Absolute neutrophil countOrd ered By: Zack Card on 09-05-2024 Absolute neutrophil count 7.9 X10^3/uL High 2.0-7.7 [facility] Albumin [Mass/Vol]Ordered By : Zack Card on 09-05-2024 Serum or plasma albumin measurement (mass/volume) 4.2 g/dL 3.5-5.0 [facility] Albumin/Globulin [Mass ratio ]Ordered By: Zack Card on 09-05-2024 Serum or plasma albumin/globulin mass ratio 1.0 RATIO 0.9-2.4 [facility] Anion gap [Moles/Vol]Ordered By: Zack Card on 09-05-2024 Anion gap in Serum or Plasma 15 5-15 [facility] Anion gap in Serum or Plasma Ordered By: Zack Card on 09-05-2024 Anion gap [Moles/Vol] 15 mmol/L 5-15 [facility] Automated lymphocyte count a s percentage of total leukocytesOrdered By: Zack Card on 09-05-2024 Lymphocytes/100 WBC Auto (Unsp spec) 14.1 % Low 19-41 [facility] BUN/creatinine ratioOrdered By: Zack Card on 09-05-2024 Urea nitrogen/Creatinine [Mass ratio] 16.4 mg/mg 10- [facility] BUN/creatinine ratio 16.4 RATIO 10- [facility] Basophil percentageOrdered B y: Zack Card on 09-05-2024 Basophils/100 WBC (Bld) 0.4 % 0-1 [facility] Basophil percentage 0.4 % 0-1 [facility] Bilirubin, totalOrdered By: Zack Card on 09-05-2024 Bilirubin [Mass/Vol] 0.72 mg/dL 0.00-1.30 [facility] Bilirubin, total 0.72 mg/dL 0.00-1.30 [facility] CBC W/Diff, Automatedon Absolute Lymph 1.39 X10 3/uL Normal 0.83-4.51 [facility] Comment on above: Performed By: #### L 500.4050, L100.0100, L501.2450 ####[facility] [address] [place], [address] Absolute Neut 7.9 X10 3/uL High 2.0-7.7 [facility] Comment on above: Performed By: #### L 500.4050, L100.0100, L501.2450 ####[facility] [address] [place], [address] Basophils/100 WBC (Bld) 0.4 % Normal 0-1 [facility] Comment on above: Performed By: #### L 500.4050, L100.0100, L501.2450 ####[facility] [address] [place], [address] Eosinophils/100 WBC (Bld) 0.2 % Normal 0-5 [facility] [facility] Comment on above: Performed By: #### L 500.4050, L100.0100, L501.2450 ####[facility] [address] [place], [address] Erythrocyte distribution width (RBC) [Ratio] 13.3 % Normal 11.6-14.6 [facility] Comment on above: Performed By: #### L 500.4050, L100.0100, L501.2450 ####[facility] [address] [place], [address] Hematocrit (Bld) [Volume fraction] 44.4 % Normal 37-47 [facility] Comment on above: Performed By: #### L 500.4050, L100.0100, L501.2450 ####[facility] [address] [place], [address] Hemoglobin (Bld) [Mass/Vol] 15.1 g/dL High 12.0-15.0 [facility] Comment on above: Performed By: #### L 500.4050, L100.0100, L501.2450 ####[facility] [address] [place], [address] IG% 0.500 Normal 0.0-0.9 [facility] Comment on above: Result Comment: IG% - Immature Granulocytes (promyelocytes, myelocytes andmetamyelocytes) > 1% indicates that a LEFT SHIFT is Present. Performed By: #### L 500.4050, L100.0100, L501.2450 ####[facility] [address] [place], [address] Lymphocytes/100 WBC (Bld) 14.1 % Low 19-41 [facility] Comment on above: Performed By: #### L 500.4050, L100.0100, L501.2450 ####[facility] [address] [place], [address] MCH (RBC) [Entitic mass] 28.1 pg Normal 27.0-32.0 [facility] Comment on above: Performed By: #### L 500.4050, L100.0100, L501.2450 ####[facility] [address] [place], [address] MCHC (RBC) [Mass/Vol] 34.0 g/dL Normal 32-36 [facility] Comment on above: Performed By: #### L 500.4050, L100.0100, L501.2450 ####[facility] [address] [place], [address] MCV (RBC) [Entitic vol] 82.5 fL Normal 81-99 [facility] Comment on above: Performed By: #### L 500.4050, L100.0100, L501.2450 ####[facility] [address] [place], [address] Monocytes/100 WBC (Bld) 5.1 % Normal 0-10 [facility] Comment on above: Performed By: #### L 500.4050, L100.0100, L501.2450 ####[facility] [address] [place], [address] Neutrophils/100 WBC (Bld) 79.7 % High 47-70 [facility] Comment on above: Performed By: #### L 500.4050, L100.0100, L501.2450 ####[facility] [address] [place], [address] Nucleated RBC (Bld) [#/Vol] 0 10*3/uL Normal 0-5 [facility] Comment on above: Performed By: #### L 500.4050, L100.0100, L501.2450 ####[facility] [address] [place], [address] Platelet mean volume (Bld) [Entitic vol] 8.7 fL Normal 6.2-12.0 [facility] Comment on above: Performed By: #### L 500.4050, L100.0100, L501.2450 ####[facility] [address] [place], [address] Platelets (Bld) [#/Vol] 314 10*3/uL Normal 150-450 [facility] Comment on above: Performed By: #### L 500.4050, L100.0100, L501.2450 ####[facility] [address] [place], [address] RBC (Bld) [#/Vol] 5.38 10*6/uL Normal 4.2-5.4 [facility] Comment on above: Performed By: #### L 500.4050, L100.0100, L501.2450 ####[facility] [address] [place], [address] RDW SD 39.7 fl Normal 35.1-43.9 [facility] Comment on above: Performed By: #### L 500.4050, L100.0100, L501.2450 ####[facility] [address] [place], [address] WBC (Bld) [#/Vol] 9.9 10*3/uL Normal 4.4-11.0 [facility] Comment on above: Performed By: #### L 500.4050, L100.0100, L501.2450 ####[facility] [address] [place], [address] Calcium [Mass/Vol]Ordered By : Zack Card on 09-05-2024 Serum or plasma calcium measurement (mass/volume) 10.0 mg/dL 7.6-11.0 [facility] Carbon dioxide, total [Moles /volume] in Central venous bloodOrdered By: Zack Card on 09-05-2024 CO2 [Moles/Vol] 22.0 mmol/L 21.0-32.0 [facility] Carbon dioxide, total [Moles/volume] in Central venous blood 22.0 mmol/L 21.0-32.0 [facility] Chloride assayOrdered By: Butch Card on 09-05-2024 Chloride [Moles/Vol] 95 mmol/L Low 98-108 [facility] Chloride assay 95 mmol/L Low 98-108 [facility] Comprehensive Metabolic Prof ilon 09-05-2024 Albumin [Mass/Vol] 4.2 g/dL Normal 3.5-5.0 [facility] Comment on above: Performed By: #### L 500.4050, L100.0100, L501.2450 ####[facility] [address] [place], [address] Albumin/Globulin [Mass ratio] 1.0 {ratio} Normal 0.9-2.4 [facility] Comment on above: Performed By: #### L 500.4050, L100.0100, L501.2450 ####[facility] [address] [place], [address] ALK PHOS 141 U/L High 35-104 [facility] Comment on above: Performed By: #### L 500.4050, L100.0100, L501.2450 ####[facility] [address] [place], [address] ALT [Catalytic activity/Vol] 22 U/L Normal <=34 [facility] Comment on above: Performed By: #### L 500.4050, L100.0100, L501.2450 ####[facility] [address] [place], [address] AST [Catalytic activity/Vol] 33 U/L High <=31 [facility] Comment on above: Result Comment: Hemo lysis present, Results??could be affected.?? Performed By: #### L 500.4050, L100.0100, L501.2450 ####[facility] [address] [place], [address] Bilirubin [Mass/Vol] 0.72 mg/dL Normal 0.00-1.30 [facility] Comment on above: Performed By: #### L 500.4050, L100.0100, L501.2450 ####[facility] [address] [place], [address] BUN/CRE 16.4 RATIO Normal 10-20 [facility] Comment on above: Performed By: #### L 500.4050, L100.0100, L501.2450 ####[facility] [address] [place], [address] Calcium [Mass/Vol] 10.0 mg/dL Normal 7.6-11.0 [facility] Comment on above: Performed By: #### L 500.4050, L100.0100, L501.2450 ####[facility] [address] [place], [address] Chloride [Moles/Vol] 95 mmol/L Low 98-108 [facility] Comment on above: Performed By: #### L 500.4050, L100.0100, L501.2450 ####[facility] [address] [place], [address] CO2 [Moles/Vol] 22.0 mmol/L Normal 21.0-32.0 [facility] Comment on above: Performed By: #### L 500.4050, L100.0100, L501.2450 ####[facility] [address] [place], [address] Creatinine [Mass/Vol] 0.84 mg/dL Normal 0.70-1.20 [facility] Comment on above: Performed By: #### L 500.4050, L100.0100, L501.2450 ####[facility] [address] [place], [address] ECRCL 83.78 ml/min Normal 50-250 [facility] Comment on above: Performed By: #### L 500.4050, L100.0100, L501.2450 ####[facility] [address] [place], [address] GAP 15 Normal 5-15 [facility] Comment on above: Performed By: #### L 500.4050, L100.0100, L501.2450 ####[facility] [address] [place], [address] GFR/1.73 sq M.predicted among non-blacks MDRD (S/P/Bld) [Vol rate/Area] 83 mL/min/{1.73_m2} Normal >60 [facility] Comment on above: Result Comment: mL/m in/1.73m2 CKD-EPI Creatinine Equation (2020) Performed By: #### L 500.4050, L100.0100, L501.2450 ####[facility] [address] [place], [address] Globulin (S) [Mass/Vol] 4.0 g/dL Normal 2.2-4.2 [facility] Comment on above: Performed By: #### L 500.4050, L100.0100, L501.2450 ####[facility] [address] [place], [address] Glucose [Mass/Vol] 382 mg/dL High 70-99 [facility] Comment on above: Performed By: #### L 500.4050, L100.0100, L501.2450 ####[facility] [address] [place], [address] Potassium [Moles/Vol] 3.6 mmol/L Normal 3.3-5.1 [facility] Comment on above: Result Comment: Hemo lysis present, Results??could be affected.?? Performed By: #### L 500.4050, L100.0100, L501.2450 ####[facility] [address] [place], [address] Sodium [Moles/Vol] 132 mmol/L Low 133-145 [facility] Comment on above: Performed By: #### L 500.4050, L100.0100, L501.2450 ####[facility] [address] [place], [address] T PROT 8.2 g/dL Normal 5.9-8.4 [facility] Comment on above: Performed By: #### L 500.4050, L100.0100, L501.2450 ####[facility] [address] [place], [address] Urea nitrogen [Mass/Vol] 14 mg/dL Normal 4-19 [facility] Comment on above: Performed By: #### L 500.4050, L100.0100, L501.2450 ####[facility] [address] [place], [address] Creatinine [Mass/Vol]Ordered By: Zack Card on 09-05-2024 Serum creatinine measurement (mass/volume) 0.84 mg/dL 0.70-1.20 [facility] Emergency Department Summary on 09-05-2024 Emergency Department Summary Normal [facility] Eosinophil percentageOrdered By: Zack Card on 09-05-2024 Eosinophils/100 WBC (Bld) 0.2 % 0-5 [facility] Eosinophil percentage 0.2 % 0-5 [facility] Erythrocyte distribution wid th (RBC) [Ratio]Ordered By: Zack Card on 09-05-2024 Erythrocyte distribution width ratio 13.3 % 11.6-14.6 [facility] Erythrocyte distribution width standard deviation 39.7 fl 35.1-43.9 [facility] Erythrocyte distribution wid th ratioOrdered By: Zack Card on 09-05-2024 Erythrocyte distribution width (RBC) [Ratio] 13.3 % 11.6-14.6 [facility] Erythrocyte distribution wid th standard deviationOrdered By: Zack Card on 09-05-2024 Erythrocyte distribution width (RBC) [Ratio] 39.7 fl 35.1-43.9 [facility] Estimation of creatinine sylvain aranceOrdered By: Zack Card on 09-05-2024 Estimation of creatinine clearance 83.78 ml/min 50-250 [facility] GFR/1.73 sq M.predicted estephanie g non-blacks MDRD (S/P/Bld) [Vol rate/Area]Ordered By: Zack Card on 09-05-2024 Glomerular filtration rate (GFR) estimation/1.73 sq m using serum, plasma, or whole b 83 >60 [facility] Glomerular filtration rate ( GFR) estimation/1.73 sq m using serum, plasma, or whole bOrdered By: Zack Card on 09-05-2024 GFR/1.73 sq M.predicted among non-blacks MDRD (S/P/Bld) [Vol rate/Area] 83 mL/min/{1.73_m2} >60 [facility] Glucose [Mass/Vol]Ordered By : Zack Card on 09-05-2024 Serum glucose measurement (mass/volume) 382 mg/dL High 70-99 [facility] Hematocrit Auto (Bld) [Volum e fraction]Ordered By: Zack Card on 09-05-2024 Hematocrit (Bld) [Volume fraction] 44.4 % 37-47 [facility] Automated blood hematocrit (percentage) 44.4 % 37-47 [facility] Hemoglobin measurementOrdere d By: Zack Card on 09-05-2024 Hemoglobin (Bld) [Mass/Vol] 15.1 g/dL High 12.0-15.0 [facility] Hemoglobin measurement 15.1 g/dL High 12.0-15.0 [facility] Immature granulocytes/100 WB C Auto (Bld)Ordered By: Zack Card on 09-05-2024 Immature granulocytes/100 WBC (Bld) 0.500 % 0.0-0.9 [facility] Automated immature granulocyte percentage 0.500 % 0.0-0.9 [facility] Lipaseon 09-05-2024 Lipase [Catalytic activity/Vol] 33 U/L Normal 13-75 [facility] Comment on above: Result Comment: Gege edgar note:LIPASE revised reference range effective 22.New Lipase methodology. Expected to produce lower valuesthan the previous assay method.NEW Reference Range: 13 - 75 U/L Performed By: #### L 500.4050, L100.0100, L501.2450 ####[facility] [address] [place], [address] Lipase measurementOrdered By : Zack Card on 09-05-2024 Lipase measurement 33 U/L High <32 [facility] Lymphocytes Auto (Unsp spec) [#/Vol]Ordered By: Zack Card on 09-05-2024 Absolute lymphocyte count 1.39 X10^3/uL 0.83-4.51 [facility] Lymphocytes/100 WBC Auto (Un sp spec)Ordered By: Zack Cadr on 09-05-2024 Automated lymphocyte count as percentage of total leukocytes 14.1 % Low 19-41 [facility] MCV (RBC) [Entitic vol]Order ed By: Zack Card on 09-05-2024 MCV (mean corpuscular volume) determination 82.5 fL 81-99 [facility] MCV (mean corpuscular volume ) determinationOrdered By: Zack Card 09-05-2024 MCV (RBC) [Entitic vol] 82.5 fL 81-99 [facility] Mean corpuscular hemoglobin (MCH) determinationOrdered By: Zack Card 09-05-2024 MCH (RBC) [Entitic mass] 28.1 pg 27.0-32.0 [facility] Mean corpuscular hemoglobin (MCH) determination 28.1 pg 27.0-32.0 [facility] Mean corpuscular hemoglobin concentration (MCHC) determinationOrdered By: Zack Card on 09-05-2024 Mean corpuscular hemoglobin concentration (MCHC) determination 34.0 g/dL 32-36 [facility] Mean platelet volume determi nationOrdered By: Zack Card on 09-05-2024 Mean platelet volume determination 8.7 fl 6.2-12.0 [facility] Monocyte percentageOrdered B y: Zack Card on 09-05-2024 Monocytes/100 WBC (Bld) 5.1 % 0-10 [facility] Monocyte percentage 5.1 % 0-10 [facility] Neutrophil percentageOrdered By: Zack Card on 09-05-2024 Neutrophils/100 WBC (Bld) 79.7 % High 47-70 [place] [facility] Neutrophil percentage 79.7 % High 47-70 [facility] Nucleated red blood cell per centageOrdered By: Zack Card on 09-05-2024 Nucleated red blood cell percentage 0 % 0-5 [facility] Platelet countOrdered By: Butch Card on 09-05-2024 Platelets (Bld) [#/Vol] 314 10*3/uL 150-450 [facility] Platelet count 314 K/mm3 150-450 [facility] Potassium (Unsp spec) [Mass/ Vol]Ordered By: Zack Card on 09-05-2024 Potassium measurement (mass/volume) 3.6 mmol/L 3.3-5.1 [facility] Potassium measurement (mass/ volume)Ordered By: Zack Card on 09-05-2024 Potassium (Unsp spec) [Mass/Vol] 3.6 mmol/L 3.3-5.1 [facility] RBC Auto (Bld) [#/Vol]Ordere d By: Zack Card on 09-05-2024 RBC (Bld) [#/Vol] 5.38 10*6/uL 4.2-5.4 [facility] Automated blood erythrocyte count 5.38 M/mm3 4.2-5.4 [facility] Serum creatinine measurement (mass/volume)Ordered By: Zack Card on 09-05-2024 Creatinine [Mass/Vol] 0.84 mg/dL 0.70-1.20 [facility] Serum globulin measurementOr dered By: Zack Card on 09-05-2024 Globulin (S) [Mass/Vol] 4.0 g/dL 2.2-4.2 [facility] Serum globulin measurement 4.0 g/dL 2.2-4.2 [facility] Serum glucose measurement (m ass/volume)Ordered By: Zack Card on 09-05-2024 Glucose [Mass/Vol] 382 mg/dL High 70-99 [facility] Serum or plasma alanine hamilton otransferase (ALT) measurementOrdered By: Zack Card on 09-05-2024 ALT [Catalytic activity/Vol] 22 U/L <35 [facility] Serum or plasma albumin xiomara urement (mass/volume)Ordered By: Zack Card on 09-05-2024 Albumin [Mass/Vol] 4.2 g/dL 3.5-5.0 [facility] Serum or plasma albumin/glob ulin mass ratioOrdered By: Zack Card on 09-05-2024 Albumin/Globulin [Mass ratio] 1.0 {ratio} 0.9-2.4 [facility] Serum or plasma alkaline sabiha sphatase measurementOrdered By: Zack Card on 09-05-2024 ALP [Catalytic activity/Vol] 141 U/L High 35-104 [facility] Serum or plasma calcium xiomara urement (mass/volume)Ordered By: Zack Card on 09-05-2024 Calcium [Mass/Vol] 10.0 mg/dL 7.6-11.0 [facility] Serum or plasma urea nitroge n measurement (mass/volume)Ordered By: Zack Card on 09-05-2024 Urea nitrogen [Mass/Vol] 14 mg/dL 09-20 [facility] Sodium levelOrdered By: Zack Card on 09-05-2024 Sodium [Moles/Vol] 132 mmol/L Low 133-145 [facility] Sodium level 132 mmol/L Low 133-145 [facility] Total proteinOrdered By: Sanjay Card on 09-05-2024 Protein [Mass/Vol] 8.2 g/dL 5.9-8.4 [facility] Total protein 8.2 g/dL 5.9-8.4 [facility] Urea nitrogen [Mass/Vol]Orde red By: Zack Card on 09-05-2024 Serum or plasma urea nitrogen measurement (mass/volume) 14 mg/dL 09-20 [facility] White blood cell (WBC) count Ordered By: Zack Card on 09-05-2024 WBC (Bld) [#/Vol] 9.9 10*3/uL 4.4-11.0 [facility] White blood cell (WBC) count 9.9 K/mm3 4.4-11.0 [facility] Basic Metabolic Profile (BMP )on 09-04-2024 BUN Normal 09-20 [facility] Comment on above: Result Comment: Canc elled via OM: Order cancelled - Patient discharged Performed By: #### L 500.2500, L100.0100 ####[facility] [address] [place], [address] BUN/CRE Normal 10-20 [facility] Comment on above: Result Comment: Canc elled via OM: Order cancelled - Patient discharged Performed By: #### L 500.2500, L100.0100 ####[facility] [address] [place], [address] Calcium Normal 7.6-11.0 [facility] Comment on above: Result Comment: Canc elled via OM: Order cancelled - Patient discharged Performed By: #### L 500.2500, L100.0100 ####[facility] [address] [place], [address] CL Normal 98-108 [facility] Comment on above: Result Comment: Canc elled via OM: Order cancelled - Patient discharged Performed By: #### L 500.2500, L100.0100 ####[facility] [address] [place], [address] CO2 Normal 21.0-32.0 [facility] Comment on above: Result Comment: Canc elled via OM: Order cancelled - Patient discharged Performed By: #### L 500.2500, L100.0100 ####[facility] [address] [place], [address] CREAT,SERUM Normal 0.70-1.20 [facility] Comment on above: Result Comment: Canc elled via OM: Order cancelled - Patient discharged Performed By: #### L 500.2500, L100.0100 ####[facility] [address] [place], [address] eGFR Normal >60 [facility] Comment on above: Result Comment: Canc elled via OM: Order cancelled - Patient discharged Performed By: #### L 500.2500, L100.0100 ####[facility] [address] [place], [address] GAP Normal 5-15 [facility] Comment on above: Result Comment: Canc elled via OM: Order cancelled - Patient discharged Performed By: #### L 500.2500, L100.0100 ####[facility] [address] [place], [address] GLU Normal 70-99 [facility] Comment on above: Result Comment: Canc elled via OM: Order cancelled - Patient discharged Performed By: #### L 500.2500, L100.0100 ####[facility] [address] [place], [address] Potassium Normal 3.3-5.1 [facility] Comment on above: Result Comment: Canc elled via OM: Order cancelled - Patient discharged Performed By: #### L 500.2500, L100.0100 ####[facility] [address] [place], [address] Basic Metabolic Profile (BMP) Normal 133-145 [facility] Comment on above: Result Comment: Canc elled via OM: Order cancelled - Patient discharged Performed By: #### L 500.2500, L100.0100 ####[facility] [address] [place], [address] CBC W/Diff, Automatedon 04-0 -2024 Absolute Neut Normal 2.0-7.7 [facility] Comment on above: Result Comment: Canc elled via OM: Order cancelled - Patient discharged Performed By: #### L 500.2500, L100.0100 ####[facility] [address] [place], [address] HCT Normal 37-47 [facility] Comment on above: Result Comment: Canc elled via OM: Order cancelled - Patient discharged Performed By: #### L 500.2500, L100.0100 ####[facility] [address] [place], [address] HGB Normal 12.0-15.0 [facility] Comment on above: Result Comment: Canc elled via OM: Order cancelled - Patient discharged Performed By: #### L 500.2500, L100.0100 ####[facility] [address] [place], [address] MCH Normal 27.0-32.0 [facility] Comment on above: Result Comment: Canc elled via OM: Order cancelled - Patient discharged Performed By: #### L 500.2500, L100.0100 ####[facility] [address] [place], [address] MCHC Normal 32-36 [facility] Comment on above: Result Comment: Canc elled via OM: Order cancelled - Patient discharged Performed By: #### L 500.2500, L100.0100 ####[facility] [address] [place], [address] MCV Normal 81-99 [facility] Comment on above: Result Comment: Canc elled via OM: Order cancelled - Patient discharged Performed By: #### L 500.2500, L100.0100 ####[facility] [address] [place], [address] NEUT% Normal 47-70 [facility] Comment on above: Result Comment: Canc elled via OM: Order cancelled - Patient discharged Performed By: #### L 500.2500, L100.0100 ####[facility] [address] [place], [address] PLT Normal 150-450 [facility] Comment on above: Result Comment: Canc elled via OM: Order cancelled - Patient discharged Performed By: #### L 500.2500, L100.0100 ####[facility] [address] [place], [address] RBC Normal 4.2-5.4 [facility] Comment on above: Result Comment: Canc elled via OM: Order cancelled - Patient discharged Performed By: #### L 500.2500, L100.0100 ####[facility] [address] [place], [address] RDW CV Normal 11.6-14.6 [facility] Comment on above: Result Comment: Canc elled via OM: Order cancelled - Patient discharged Performed By: #### L 500.2500, L100.0100 ####[facility] [address] [place], [address] RDW SD Normal 35.1-43.9 [facility] Comment on above: Result Comment: Canc elled via OM: Order cancelled - Patient discharged Performed By: #### L 500.2500, L100.0100 ####[facility] [address] [place], [address] WBC Normal 4.4-11.0 [facility] Comment on above: Result Comment: Canc elled via OM: Order cancelled - Patient discharged Performed By: #### L 500.2500, L100.0100 ####[facility] [address] [place], [address] Basic Metabolic Profile (BMP )on 09-03-2024 BUN Normal 4-19 [facility] Comment on above: Result Comment: Canc elled via OM: Order cancelled - Patient discharged Performed By: #### L 500.2500, L100.0100 ####[facility] [address] [place], [address] BUN/CRE Normal 10-20 [facility] Comment on above: Result Comment: Canc elled via OM: Order cancelled - Patient discharged Performed By: #### L 500.2500, L100.0100 ####[facility] [address] [place], [address] Calcium Normal 7.6-11.0 [facility] Comment on above: Result Comment: Canc elled via OM: Order cancelled - Patient discharged Performed By: #### L 500.2500, L100.0100 ####[facility] [address] [place], [address] CL Normal 98-108 [facility] Comment on above: Result Comment: Canc elled via OM: Order cancelled - Patient discharged Performed By: #### L 500.2500, L100.0100 ####[facility] [address] [place], [address] CO2 Normal 21.0-32.0 [facility] Comment on above: Result Comment: Canc elled via OM: Order cancelled - Patient discharged Performed By: #### L 500.2500, L100.0100 ####[facility] [address] [place], [address] CREAT,SERUM Normal 0.70-1.20 [facility] Comment on above: Result Comment: Canc elled via OM: Order cancelled - Patient discharged Performed By: #### L 500.2500, L100.0100 ####[facility] [address] [place], [address] eGFR Normal >60 [facility] Comment on above: Result Comment: Canc elled via OM: Order cancelled - Patient discharged Performed By: #### L 500.2500, L100.0100 ####[facility] [address] [place], [address] GAP Normal 5-15 [facility] Comment on above: Result Comment: Canc elled via OM: Order cancelled - Patient discharged Performed By: #### L 500.2500, L100.0100 ####[facility] [address] [place], [address] GLU Normal 70-99 [facility] Comment on above: Result Comment: Canc elled via OM: Order cancelled - Patient discharged Performed By: #### L 500.2500, L100.0100 ####[facility] [address] [facility] [place], [address] Potassium Normal 3.3-5.1 [facility] Comment on above: Result Comment: Canc elled via OM: Order cancelled - Patient discharged Performed By: #### L 500.2500, L100.0100 ####[facility] [address] [place], [address] Basic Metabolic Profile (BMP) Normal 133-145 [facility] Comment on above: Result Comment: Canc elled via OM: Order cancelled - Patient discharged Performed By: #### L 500.2500, L100.0100 ####[facility] [address] [place], [address] CBC W/Diff, Automatedon 04-0 Absolute Neut Normal 2.0-7.7 [facility] Comment on above: Result Comment: Canc elled via OM: Order cancelled - Patient discharged Performed By: #### L 500.2500, L100.0100 ####[facility] [address] [place], [address] HCT Normal 37-47 [facility] Comment on above: Result Comment: Canc elled via OM: Order cancelled - Patient discharged Performed By: #### L 500.2500, L100.0100 ####[facility] [address] [place], [address] HGB Normal 12.0-15.0 [facility] Comment on above: Result Comment: Canc elled via OM: Order cancelled - Patient discharged Performed By: #### L 500.2500, L100.0100 ####[facility] [address] [place], [address] MCH Normal 27.0-32.0 [facility] Comment on above: Result Comment: Canc elled via OM: Order cancelled - Patient discharged Performed By: #### L 500.2500, L100.0100 ####[facility] [address] [place], [address] MCHC Normal 32-36 [facility] Comment on above: Result Comment: Canc elled via OM: Order cancelled - Patient discharged Performed By: #### L 500.2500, L100.0100 ####[facility] [address] [place], [address] MCV Normal 81-99 [facility] Comment on above: Result Comment: Canc elled via OM: Order cancelled - Patient discharged Performed By: #### L 500.2500, L100.0100 ####[facility] [address] [place], [address] NEUT% Normal 47-70 [facility] Comment on above: Result Comment: Canc elled via OM: Order cancelled - Patient discharged Performed By: #### L 500.2500, L100.0100 ####[facility] [address] [place], [address] PLT Normal 150-450 [facility] Comment on above: Result Comment: Canc elled via OM: Order cancelled - Patient discharged Performed By: #### L 500.2500, L100.0100 ####[facility] [address] [place], [address] RBC Normal 4.2-5.4 [facility] Comment on above: Result Comment: Canc elled via OM: Order cancelled - Patient discharged Performed By: #### L 500.2500, L100.0100 ####[facility] [address] [place], [address] RDW CV Normal 11.6-14.6 [facility] Comment on above: Result Comment: Canc elled via OM: Order cancelled - Patient discharged Performed By: #### L 500.2500, L100.0100 ####[facility] [address] [place], [address] RDW SD Normal 35.1-43.9 [facility] Comment on above: Result Comment: Canc elled via OM: Order cancelled - Patient discharged Performed By: #### L 500.2500, L100.0100 ####[facility] [address] [place], [address] WBC Normal 4.4-11.0 [facility] Comment on above: Result Comment: Canc elled via OM: Order cancelled - Patient discharged Performed By: #### L 500.2500, L100.0100 ####[facility] [address] [place], [address] Absolute lymphocyte countOrd ered By: Latricia Aaron on 09-02-2024 Lymphocytes Auto (Unsp spec) [#/Vol] 1.33 10*3/uL 0.83-4.51 [facility] Absolute neutrophil countOrd ered By: Latricia Aaron on 09-02-2024 Absolute neutrophil count 7.4 X10^3/uL 2.0-7.7 [facility] Anion gap [Moles/Vol]Ordered By: Latricia Aaron on 09-02-2024 Anion gap in Serum or Plasma 14 5-15 [facility] Anion gap in Serum or Plasma Ordered By: Latricia Aaron on 09-02-2024 Anion gap [Moles/Vol] 14 mmol/L 5- [facility] Automated lymphocyte count a s percentage of total leukocytesOrdered By: Latricia Aaron on 09-02-2024 Lymphocytes/100 WBC Auto (Unsp spec) 14.4 % Low 19-41 [facility] BUN/creatinine ratioOrdered By: Latricia Aaron on 09-02-2024 Urea nitrogen/Creatinine [Mass ratio] 22.6 mg/mg High 10-20 [facility] BUN/creatinine ratio 22.6 RATIO High 10-20 [facility] Basic Metabolic Profile (BMP )on 09-02-2024 BUN/CRE 22.6 RATIO High 10-20 [facility] Comment on above: Performed By: #### L 500.2500, L501.5200, L100.0100, L501.2300 ####[facility] [address] [place], [address] ECRCL 105.77 ml/min Normal 50-250 [facility] Comment on above: Performed By: #### L 500.2500, L501.5200, L100.0100, L501.2300 ####[facility] [address] [place], [address] GAP 14 Normal 5-15 [facility] Comment on above: Performed By: #### L 500.2500, L501.5200, L100.0100, L501.2300 ####[facility] [address] [place], [address] Potassium [Moles/Vol] 3.9 mmol/L Normal 3.3-5.1 [facility] Comment on above: Performed By: #### L 500.2500, L501.5200, L100.0100, L501.2300 ####[facility] [address] [place], [address] Basophil percentageOrdered B y: Latricia Daypeter on 09-02-2024 Basophils/100 WBC (Bld) 0.3 % 0-1 [facility] Basophil percentage 0.3 % 0-1 [facility] Bedside Glucoseon 09-02-2024 FINGERSTICK GLU 229 mg/dL High 74-106 [facility] Comment on above: Result Comment: TALIA GEMENT OF PATIENT CARE PER NURSING PROTOCOL Performed By: #### L 501.080 ####[facility] [address] [place], [address] FINGERSTICK GLU 228 mg/dL High 74-106 [facility] Comment on above: Result Comment: TALIA GEMENT OF PATIENT CARE PER NURSING PROTOCOL Performed By: #### L 501.080 ####[facility] [address] [place], [address] FINGERSTICK GLU 248 mg/dL High 74-106 [facility] Comment on above: Result Comment: TALIA GEMENT OF PATIENT CARE PER NURSING PROTOCOL Performed By: #### L 501.080 ####[facility] [address] [place], [address] CBC W/Diff, Automatedon 04-0 -2024 Absolute Lymph 1.33 X10 3/uL Normal 0.83-4.51 [facility] Comment on above: Performed By: #### L 500.2500, L501.5200, L100.0100, L501.2300 ####[facility] [address] [place], [address] Absolute Neut 7.4 X10 3/uL Normal 2.0-7.7 [facility] Comment on above: Performed By: #### L 500.2500, L501.5200, L100.0100, L501.2300 ####[facility] [address] [place], [address] Basophils/100 WBC (Bld) 0.3 % Normal 0-1 [facility] Comment on above: Performed By: #### L 500.2500, L501.5200, L100.0100, L501.2300 ####[facility] [address] [place], [address] Eosinophils/100 WBC (Bld) 0.2 % Normal 0-5 [facility] Comment on above: Performed By: #### L 500.2500, L501.5200, L100.0100, L501.2300 ####[facility] [address] [place], [address] Erythrocyte distribution width (RBC) [Ratio] 13.8 % Normal 11.6-14.6 [facility] Comment on above: Performed By: #### L 500.2500, L501.5200, L100.0100, L501.2300 ####[facility] [address] [place], [address] Hematocrit (Bld) [Volume fraction] 42.7 % Normal 37-47 [facility] Comment on above: Performed By: #### L 500.2500, L501.5200, L100.0100, L501.2300 ####[facility] [address] [place], [address] Hemoglobin (Bld) [Mass/Vol] 14.0 g/dL Normal 12.0-15.0 [facility] Comment on above: Performed By: #### L 500.2500, L501.5200, L100.0100, L501.2300 ####[facility] [address] [place], [address] IG% 0.400 Normal 0.0-0.9 [facility] Comment on above: Result Comment: IG% - Immature Granulocytes (promyelocytes, myelocytes andmetamyelocytes) > 1% indicates that a LEFT SHIFT is Present. Performed By: #### L 500.2500, L501.5200, L100.0100, L501.2300 ####[facility] [address] [place], [address] Lymphocytes/100 WBC (Bld) 14.4 % Low 19-41 [facility] Comment on above: Performed By: #### L 500.2500, L501.5200, L100.0100, L501.2300 ####[facility] [address] [place], [address] MCH (RBC) [Entitic mass] 27.5 pg Normal 27.0-32.0 [facility] Comment on above: Performed By: #### L 500.2500, L501.5200, L100.0100, L501.2300 ####[facility] [address] [place], [address] MCHC (RBC) [Mass/Vol] 32.8 g/dL Normal 32-36 [facility] Comment on above: Performed By: #### L 500.2500, L501.5200, L100.0100, L501.2300 ####[facility] [address] [place], [address] MCV (RBC) [Entitic vol] 83.7 fL Normal 81-99 [facility] Comment on above: Performed By: #### L 500.2500, L501.5200, L100.0100, L501.2300 ####[facility] [address] [place], [address] Monocytes/100 WBC (Bld) 4.0 % Normal 0-10 [facility] Comment on above: Performed By: #### L 500.2500, L501.5200, L100.0100, L501.2300 ####[facility] [address] [place], [address] Neutrophils/100 WBC (Bld) 80.7 % High 47-70 [facility] Comment on above: Performed By: #### L 500.2500, L501.5200, L100.0100, L501.2300 ####[facility] [address] [place], [address] Nucleated RBC (Bld) [#/Vol] 0 10*3/uL Normal 0-5 [facility] Comment on above: Performed By: #### L 500.2500, L501.5200, L100.0100, L501.2300 ####[facility] [address] [place], [address] Platelet mean volume (Bld) [Entitic vol] 8.8 fL Normal 6.2-12.0 [facility] Comment on above: Performed By: #### L 500.2500, L501.5200, L100.0100, L501.2300 ####[facility] [address] [place], [address] Platelets (Bld) [#/Vol] 269 10*3/uL Normal 150-450 [facility] Comment on above: Performed By: #### L 500.2500, L501.5200, L100.0100, L501.2300 ####[facility] [address] [place], [address] RBC (Bld) [#/Vol] 5.10 10*6/uL Normal 4.2-5.4 [facility] Comment on above: Performed By: #### L 500.2500, L501.5200, L100.0100, L501.2300 ####[facility] [address] [place], [address] RDW SD 42.4 fl Normal 35.1-43.9 [facility] Comment on above: Performed By: #### L 500.2500, L501.5200, L100.0100, L501.2300 ####[facility] [address] [place], [address] WBC (Bld) [#/Vol] 9.2 10*3/uL Normal 4.4-11.0 [facility] Comment on above: Performed By: #### L 500.2500, L501.5200, L100.0100, L501.2300 ####[facility] [address] [place], [address] Calcium [Mass/Vol]Ordered By : Latricia Aaron on 09-02-2024 Serum or plasma calcium measurement (mass/volume) 9.4 mg/dL 7.6-11.0 [facility] Carbon dioxide, total [Moles /volume] in Central venous bloodOrdered By: Latricia Aaron on 09-02-2024 CO2 [Moles/Vol] 20.0 mmol/L Low 21.0-32.0 [facility] Comment on above: Performed By: #### L 500.2500, L501.5200, L100.0100, L501.2300 ####[facility] [address] [place], [address] Carbon dioxide, total [Moles/volume] in Central venous blood 20.0 mmol/L Low 21.0-32.0 [facility] Chloride assayOrdered By: Tristan Aaron on 09-02-2024 Chloride [Moles/Vol] 101 mmol/L Normal 98-108 [facility] Comment on above: Performed By: #### L 500.2500, L501.5200, L100.0100, L501.2300 ####[facility] [address] [place], [place], [address] Chloride assay 101 mmol/L 98-108 [facility] Creatinine [Mass/Vol]Ordered By: Latricia Aaron on 09-02-2024 Serum creatinine measurement (mass/volume) 0.67 mg/dL Low 0.70-1.20 [facility] Eosinophil percentageOrdered By: Latricia Aaron on 09-02-2024 Eosinophils/100 WBC (Bld) 0.2 % 0-5 [facility] Eosinophil percentage 0.2 % 0-5 [facility] Erythrocyte distribution wid th (RBC) [Ratio]Ordered By: Latricia Aaron on 09-02-2024 Erythrocyte distribution width ratio 13.8 % 11.6-14.6 [facility] Erythrocyte distribution wid th ratioOrdered By: Latricia Aaron on 09-02-2024 Erythrocyte distribution width (RBC) [Ratio] 13.8 % 11.6-14.6 [facility] Erythrocyte distribution wid th standard deviationOrdered By: Latricia Aaron on 09-02-2024 Erythrocyte distribution width (RBC) [Ratio] 42.4 fl 35.1-43.9 [facility] Erythrocyte distribution width standard deviation 42.4 fl 35.1-43.9 [facility] Estimation of creatinine sylvain aranceOrdered By: Latricia Aaron on 09-02-2024 Estimation of creatinine clearance 105.77 ml/min 50-250 [facility] GFR/1.73 sq M.predicted estephanie g non-blacks MDRD (S/P/Bld) [Vol rate/Area]Ordered By: Latricia Aaron on 09-02-2024 Glomerular filtration rate (GFR) estimation/1.73 sq m using serum, plasma, or whole b 104 >60 [facility] Glomerular filtration rate ( GFR) estimation/1.73 sq m using serum, plasma, or whole bOrdered By: Latricia Aaron on 09-02-2024 GFR/1.73 sq M.predicted among non-blacks MDRD (S/P/Bld) [Vol rate/Area] 104 mL/min/{1.73_m2} Normal >60 [facility] Comment on above: Result Comment: mL/m in/1.73m2 CKD-EPI Creatinine Equation (2020) Performed By: #### L 500.2500, L501.5200, L100.0100, L501.2300 ####[facility] [address] [place], [address] Glucose [Mass/Vol]Ordered By : Latricia Aaron on 09-02-2024 Serum glucose measurement (mass/volume) 242 mg/dL High 70-99 [facility] Glucose measurement at bedsi deOrdered By: Latricia Aaron on 09-02-2024 Glucose [Mass/Vol] 229 mg/dL High 74-106 [facility] Glucose measurement at bedside 229 mg/dL High 74-106 [facility] Hematocrit Auto (Bld) [Volum e fraction]Ordered By: Latricia Aaron on 09-02-2024 Hematocrit (Bld) [Volume fraction] 42.7 % 37-47 [facility] Automated blood hematocrit (percentage) 42.7 % 37-47 [facility] Hemoglobin measurementOrdere d By: Latricia Aaron on 09-02-2024 Hemoglobin (Bld) [Mass/Vol] 14.0 g/dL 12.0-15.0 [facility] Hemoglobin measurement 14.0 g/dL 12.0-15.0 [facility] Immature granulocytes/100 WB C Auto (Bld)Ordered By: Latricia Aaron on 09-02-2024 Immature granulocytes/100 WBC (Bld) 0.400 % 0.0-0.9 [facility] Automated immature granulocyte percentage 0.400 % 0.0-0.9 [facility] Lymphocytes Auto (Unsp spec) [#/Vol]Ordered By: Latricia Aaron on 09-02-2024 Absolute lymphocyte count 1.33 X10^3/uL 0.83-4.51 [facility] Lymphocytes/100 WBC Auto (Un sp spec)Ordered By: Latricia Aaron on 09-02-2024 Automated lymphocyte count as percentage of total leukocytes 14.4 % Low 19-41 [facility] MCV (RBC) [Entitic vol]Order ed By: Latricia Aaron on 09-02-2024 MCV (mean corpuscular volume) determination 83.7 fL 81-99 [facility] MCV (mean corpuscular volume ) determinationOrdered By: Larticia Aaron on 09-02-2024 MCV (RBC) [Entitic vol] 83.7 fL 81-99 [facility] Magnesiumon 09-02-2024 Magnesium [Mass/Vol] 2.0 mg/dL Normal 1.5-2.2 [facility] Comment on above: Performed By: #### L 500.2500, L501.5200, L100.0100, L501.2300 ####[facility] [address] [place], [address] Magnesium (Unsp spec) [Mass/ Vol]Ordered By: Latricia Aaron on 09-02-2024 Magnesium measurement (mass/volume) 2.0 mg/dL 1.5-2.2 [facility] Magnesium measurement (mass/ volume)Ordered By: Latricia Aaron on 09-02-2024 Magnesium (Unsp spec) [Mass/Vol] 2.0 mg/dL 1.5-2.2 [facility] Mean corpuscular hemoglobin (MCH) determinationOrdered By: Latricia Aaron on 09-02-2024 MCH (RBC) [Entitic mass] 27.5 pg 27.0-32.0 [facility] Mean corpuscular hemoglobin (MCH) determination 27.5 pg 27.0-32.0 [facility] Mean corpuscular hemoglobin concentration (MCHC) determinationOrdered By: Latricia Aaron on 09-02-2024 Mean corpuscular hemoglobin concentration (MCHC) determination 32.8 g/dL 32-36 [facility] Mean platelet volume determi nationOrdered By: Latricia Aaron on 09-02-2024 Mean platelet volume determination 8.8 fl 6.2-12.0 [facility] Monocyte percentageOrdered B y: Latricia Aaron on 09-02-2024 Monocytes/100 WBC (Bld) 4.0 % 0-10 [facility] Monocyte percentage 4.0 % 0-10 [facility] Neutrophil percentageOrdered By: Latricia Aaron on 09-02-2024 Neutrophils/100 WBC (Bld) 80.7 % High 47-70 [facility] Neutrophil percentage 80.7 % High 47-70 [facility] Nucleated red blood cell per centageOrdered By: Latricia Aaron on 09-02-2024 Nucleated red blood cell percentage 0 % 0-5 [facility] Phosphoruson 09-02-2024 Phosphate [Mass/Vol] 2.1 mg/dL Low 2.7-4.5 [facility] Comment on above: Performed By: #### L 500.2500, L501.5200, L100.0100, L501.2300 ####[facility] [address] [place], [address] Platelet countOrdered By: Tristan Aaron on 09-02-2024 Platelets (Bld) [#/Vol] 269 10*3/uL 150-450 [facility] Platelet count 269 K/mm3 150-450 [facility] Potassium (Unsp spec) [Mass/ Vol]Ordered By: Latricia Aaron on 09-02-2024 Potassium measurement (mass/volume) 3.9 mmol/L 3.3-5.1 [facility] Potassium measurement (mass/ volume)Ordered By: Latricia Aaron on 09-02-2024 Potassium (Unsp spec) [Mass/Vol] 3.9 mmol/L 3.3-5.1 [facility] RBC Auto (Bld) [#/Vol]Ordere d By: Latricia Aaron on 09-02-2024 RBC (Bld) [#/Vol] 5.10 10*6/uL 4.2-5.4 [facility] Automated blood erythrocyte count 5.10 M/mm3 4.2-5.4 [facility] Serum creatinine measurement (mass/volume)Ordered By: Latricia Aaron on 09-02-2024 Creatinine [Mass/Vol] 0.67 mg/dL Low 0.70-1.20 [facility] Comment on above: Performed By: #### L 500.2500, L501.5200, L100.0100, L501.2300 ####[facility] [address] [place], [address] Serum glucose measurement (m ass/volume)Ordered By: Latricia Aaron on 09-02-2024 Glucose [Mass/Vol] 242 mg/dL High 70-99 [facility] Comment on above: Performed By: #### L 500.2500, L501.5200, L100.0100, L501.2300 ####[facility] [address] [place], [address] Serum or plasma calcium xiomara urement (mass/volume)Ordered By: Latricia Aaron on 09-02-2024 Calcium [Mass/Vol] 9.4 mg/dL Normal 7.6-11.0 [facility] Comment on above: Performed By: #### L 500.2500, L501.5200, L100.0100, L501.2300 ####[facility] [address] [place], [address] Serum or plasma urea nitroge n measurement (mass/volume)Ordered By: Latricia Aaron on 09-02-2024 Urea nitrogen [Mass/Vol] 15 mg/dL Normal 4-19 [facility] Comment on above: Performed By: #### L 500.2500, L501.5200, L100.0100, L501.2300 ####[facility] [address] [place], [address] Serum phosphorus measurement Ordered By: Latricia Aaron on 09-02-2024 Serum phosphorus measurement 2.1 mg/dL Low 2.7-4.5 [facility] Sodium levelOrdered By: Neymar Aaron on 09-02-2024 Sodium [Moles/Vol] 136 mmol/L Normal 133-145 [facility] Comment on above: Performed By: #### L 500.2500, L501.5200, L100.0100, L501.2300 ####[facility] [address] [place], [address] Sodium level 136 mmol/L 133-145 [facility] Urea nitrogen [Mass/Vol]Orde red By: Latricia Aaron on 09-02-2024 Serum or plasma urea nitrogen measurement (mass/volume) 15 mg/dL - [facility] White blood cell (WBC) count Ordered By: Latricia Aaron on 09-02-2024 WBC (Bld) [#/Vol] 9.2 10*3/uL 4.4-11.0 [facility] White blood cell (WBC) count 9.2 K/mm3 4.4-11.0 [facility] Basic Metabolic Profile (BMP )on 09-01-2024 BUN/CRE 27.7 RATIO High 10-20 [facility] Comment on above: Performed By: #### L 500.2500, L100.0500 ####[facility] [address] [place], [address] Calcium [Mass/Vol] 8.7 mg/dL Normal 7.6-11.0 [facility] Comment on above: Performed By: #### L 500.2500, L100.0500 ####[facility] [address] [place], [address] Chloride [Moles/Vol] 110 mmol/L High 98-108 [facility] Comment on above: Performed By: #### L 500.2500, L100.0500 ####[facility] [address] [place], [address] CO2 [Moles/Vol] 19.8 mmol/L Low 21.0-32.0 [facility] Comment on above: Performed By: #### L 500.2500, L100.0500 ####[facility] [address] [place], [address] Creatinine [Mass/Vol] 0.77 mg/dL Normal 0.70-1.20 [facility] Comment on above: Performed By: #### L 500.2500, L100.0500 ####[facility] [address] [place], [address] ECRCL 91.72 ml/min Normal 50-250 [facility] Comment on above: Performed By: #### L 500.2500, L100.0500 ####[facility] [address] [place], [address] GAP 8 Normal 5-15 [facility] Comment on above: Performed By: #### L 500.2500, L100.0500 ####[facility] [address] [place], [address] GFR/1.73 sq M.predicted among non-blacks MDRD (S/P/Bld) [Vol rate/Area] 93 mL/min/{1.73_m2} Normal >60 [facility] Comment on above: Result Comment: mL/m in/1.73m2 CKD-EPI Creatinine Equation (2020) Performed By: #### L 500.2500, L100.0500 ####[facility] [address] [place], [address] Glucose [Mass/Vol] 93 mg/dL Normal 70-99 [facility] Comment on above: Performed By: #### L 500.2500, L100.0500 ####[facility] [address] [place], [address] Potassium [Moles/Vol] 4.0 mmol/L Normal 3.3-5.1 [facility] Comment on above: Performed By: #### L 500.2500, L100.0500 ####[facility] [address] [place], [address] Sodium [Moles/Vol] 138 mmol/L Normal 133-145 [facility] Comment on above: Performed By: #### L 500.2500, L100.0500 ####[facility] [address] [place], [address] Urea nitrogen [Mass/Vol] 21 mg/dL High 4-19 [facility] Comment on above: Performed By: #### L 500.2500, L100.0500 ####[facility] [address] [place], [address] Bedside Glucoseon 09-01-2024 FINGERSTICK GLU 162 mg/dL High 74-106 [facility] Comment on above: Result Comment: TALIA GEMENT OF PATIENT CARE PER NURSING PROTOCOL Performed By: #### L 501.080 ####[facility] [address] [place], [address] FINGERSTICK GLU 58 mg/dL Low 74-106 [facility] Comment on above: Result Comment: TALIA GEMENT OF PATIENT CARE PER NURSING PROTOCOL Performed By: #### L 501.080 ####[facility] [address] [place], [address] FINGERSTICK GLU 142 mg/dL High 74-106 [facility] Comment on above: Result Comment: TALIA GEMENT OF PATIENT CARE PER NURSING PROTOCOL Performed By: #### L 501.080 ####[facility] [address] [place], [address] FINGERSTICK GLU 80 mg/dL Normal 74-106 [facility] Comment on above: Result Comment: TALIA GEMENT OF PATIENT CARE PER NURSING PROTOCOL Performed By: #### L 501.080 ####[facility] [address] [place], [address] FINGERSTICK GLU 73 mg/dL Low 74-106 [facility] Comment on above: Result Comment: TALIA GEMENT OF PATIENT CARE PER NURSING PROTOCOL Performed By: #### L 501.080 ####[facility] [address] [place], [address] FINGERSTICK GLU 139 mg/dL High 74-106 [facility] Comment on above: Result Comment: TALIA GEMENT OF PATIENT CARE PER NURSING PROTOCOL Performed By: #### L 501.080 ####[facility] [address] [place], [address] FINGERSTICK GLU 90 mg/dL Normal 74-106 [facility] Comment on above: Result Comment: TALIA GEMENT OF PATIENT CARE PER NURSING PROTOCOL Performed By: #### L 501.080 ####[facility] [address] [place], [address] CBC-Complete Blood Cnt No Di ffon 09-01-2024 Erythrocyte distribution width (RBC) [Ratio] 14.2 % Normal 11.6-14.6 [facility] Comment on above: Performed By: #### L 500.2500, L100.0500 ####[facility] [address] [place], [address] Hematocrit (Bld) [Volume fraction] 32.6 % Low 37-47 [facility] Comment on above: Performed By: #### L 500.2500, L100.0500 ####[facility] [address] [place], [address] Hemoglobin (Bld) [Mass/Vol] 10.7 g/dL Low 12.0-15.0 [facility] Comment on above: Performed By: #### L 500.2500, L100.0500 ####[facility] [address] [place], [address] MCH (RBC) [Entitic mass] 28.2 pg Normal 27.0-32.0 [facility] Comment on above: Performed By: #### L 500.2500, L100.0500 ####[facility] [address] [place], [address] MCHC (RBC) [Mass/Vol] 32.8 g/dL Normal 32-36 [facility] Comment on above: Performed By: #### L 500.2500, L100.0500 ####[facility] [address] [place], [address] MCV (RBC) [Entitic vol] 85.8 fL Normal 81-99 [facility] Comment on above: Performed By: #### L 500.2500, L100.0500 ####[facility] [address] [place], [address] Platelet mean volume (Bld) [Entitic vol] 9.0 fL Normal 6.2-12.0 [facility] Comment on above: Performed By: #### L 500.2500, L100.0500 ####[facility] [address] [place], [address] Platelets (Bld) [#/Vol] 238 10*3/uL Normal 150-450 [facility] Comment on above: Performed By: #### L 500.2500, L100.0500 ####[facility] [address] [place], [address] RBC (Bld) [#/Vol] 3.80 10*6/uL Low 4.2-5.4 [facility] Comment on above: Performed By: #### L 500.2500, L100.0500 ####[facility] [address] [place], [address] RDW SD 44.1 fl High 35.1-43.9 [facility] Comment on above: Performed By: #### L 500.2500, L100.0500 ####[facility] [address] [place], [address] WBC (Bld) [#/Vol] 6.6 10*3/uL Normal 4.4-11.0 [facility] Comment on above: Performed By: #### L 500.2500, L100.0500 ####[facility] [address] [place], [address] Echo Complete W/ Contraston 09-01-2024 Echo Complete W/ Contrast Normal [facility] Echocardiogram study reportO rdered By: Alli Brito on 09-01-2024 Study report [facility] Work Phone: Bedside Glucoseon 08-31-2024 FINGERSTICK GLU 228 mg/dL High 74-106 [facility] Comment on above: Result Comment: TALIA GEMENT OF PATIENT CARE PER NURSING PROTOCOL Performed By: #### L 501.080 ####[facility] [address] [place], [address] FINGERSTICK GLU 129 mg/dL High 74-106 [facility] Comment on above: Result Comment: TALIA GEMENT OF PATIENT CARE PER NURSING PROTOCOL Performed By: #### L 501.080 ####[facility] [address] [place], [address] FINGERSTICK GLU 152 mg/dL High 74-106 [facility] Comment on above: Result Comment: TALIA GEMENT OF PATIENT CARE PER NURSING PROTOCOL Performed By: #### L 501.080 ####[facility] [address] [place], [address] FINGERSTICK GLU 126 mg/dL High 74-106 [facility] Comment on above: Result Comment: TALIA GEMENT OF PATIENT CARE PER NURSING PROTOCOL Performed By: #### L 501.080 ####[facility] [address] [place], [address] Bedside Glucoseon 08-30-2024 FINGERSTICK GLU 215 mg/dL High 74-106 [facility] Comment on above: Result Comment: TALIA GEMENT OF PATIENT CARE PER NURSING PROTOCOL Performed By: #### L 501.080 ####[facility] [address] [place], [address] FINGERSTICK GLU 253 mg/dL High 74-106 [facility] Comment on above: Result Comment: TALIA GEMENT OF PATIENT CARE PER NURSING PROTOCOL Performed By: #### L 501.080 ####[facility] [address] [place], [address] FINGERSTICK GLU 152 mg/dL High 74-106 [facility] Comment on above: Result Comment: TALIA GEMENT OF PATIENT CARE PER NURSING PROTOCOL Performed By: #### L 501.080 ####[facility] [address] [place], [address] FINGERSTICK GLU 117 mg/dL High 74-106 [facility] Comment on above: Result Comment: TALIA GEMENT OF PATIENT CARE PER NURSING PROTOCOL Performed By: #### L 501.080 ####[facility] [address] [place], [address] FINGERSTICK GLU 318 mg/dL High 74-106 [facility] Comment on above: Result Comment: TALIA GEMENT OF PATIENT CARE PER NURSING PROTOCOL Performed By: #### L 501.080 ####[facility] [address] [place], [address] CDIFF (PCR)on 08-30-2024 CDIFF Normal [facility] Comment on above: Performed By: #### M 100.637, M100.6796 ####[facility] [address] [place], [address] ENTERIC PATHOGEN PANEL STOOL on 08-30-2024 EP PANEL Normal [facility] Comment on above: Performed By: #### M 100.637, M100.6796 ####[facility] [address] [place], [address] Basic Metabolic Profile (BMP )on 08-29-2024 BUN/CRE 32.2 RATIO High 10-20 [facility] Comment on above: Performed By: #### L 100.0100, L500.2500 ####[facility] [address] [place], [address] Calcium [Mass/Vol] 8.9 mg/dL Normal 7.6-11.0 [facility] Comment on above: Performed By: #### L 100.0100, L500.2500 ####[facility] [address] [place], [address] Chloride [Moles/Vol] 104 mmol/L Normal 98-108 [facility] Comment on above: Performed By: #### L 100.0100, L500.2500 ####[facility] [address] [place], [address] CO2 [Moles/Vol] 21.3 mmol/L Normal 21.0-32.0 [facility] Comment on above: Performed By: #### L 100.0100, L500.2500 ####[facility] [address] [place], [address] Creatinine [Mass/Vol] 0.80 mg/dL Normal 0.70-1.20 [facility] Comment on above: Performed By: #### L 100.0100, L500.2500 ####[facility] [address] [place], [address] ECRCL 88.59 ml/min Normal 50-250 [facility] Comment on above: Performed By: #### L 100.0100, L500.2500 ####[facility] [address] [place], [address] GAP 10 Normal 5-15 [facility] Comment on above: Performed By: #### L 100.0100, L500.2500 ####[facility] [address] [place], [address] GFR/1.73 sq M.predicted among non-blacks MDRD (S/P/Bld) [Vol rate/Area] 89 mL/min/{1.73_m2} Normal >60 [facility] Comment on above: Result Comment: mL/m in/1.73m2 CKD-EPI Creatinine Equation (2020) Performed By: #### L 100.0100, L500.2500 ####[facility] [address] [place], [address] Glucose [Mass/Vol] 104 mg/dL High 70-99 [facility] Comment on above: Performed By: #### L 100.0100, L500.2500 ####[facility] [address] [place], [address] Potassium [Moles/Vol] 3.7 mmol/L Normal 3.3-5.1 [facility] Comment on above: Performed By: #### L 100.0100, L500.2500 ####[facility] [address] [place], [address] Sodium [Moles/Vol] 135 mmol/L Normal 133-145 [facility] Comment on above: Performed By: #### L 100.0100, L500.2500 ####[facility] [address] [place], [address] Urea nitrogen [Mass/Vol] 26 mg/dL High 4-19 [facility] Comment on above: Performed By: #### L 100.0100, L500.2500 ####[facility] [address] [place], [address] Bedside Glucoseon 08-29-2024 FINGERSTICK GLU 160 mg/dL High 74-106 [facility] Comment on above: Result Comment: TALIA GEMENT OF PATIENT CARE PER NURSING PROTOCOL Performed By: #### L 501.080 ####[facility] [address] [place], [address] FINGERSTICK GLU 156 mg/dL High 74-106 [facility] Comment on above: Result Comment: TALIA GEMENT OF PATIENT CARE PER NURSING PROTOCOL Performed By: #### L 501.080 ####[facility] [address] [place], [address] FINGERSTICK GLU 93 mg/dL Normal 74-106 [facility] Comment on above: Result Comment: TALIA CHAMBERS OF PATIENT CARE PER NURSING PROTOCOL Performed By: #### L 501.080 ####[facility] [address] [place], [address] CBC W/Diff, Automatedon 08-03 Absolute Lymph 2.20 X10 3/uL Normal 0.83-4.51 [facility] Comment on above: Performed By: #### L 100.0100, L500.2500 ####[facility] [address] [place], [address] Absolute Neut 5.8 X10 3/uL Normal 2.0-7.7 [facility] Comment on above: Performed By: #### L 100.0100, L500.2500 ####[facility] [address] [place], [address] Basophils/100 WBC (Bld) 0.6 % Normal 0-1 [facility] Comment on above: Performed By: #### L 100.0100, L500.2500 ####[facility] [address] [place], [address] Eosinophils/100 WBC (Bld) 2.4 % Normal 0-5 [facility] Comment on above: Performed By: #### L 100.0100, L500.2500 ####[facility] [address] [place], [address] Erythrocyte distribution width (RBC) [Ratio] 14.0 % Normal 11.6-14.6 [facility] Comment on above: Performed By: #### L 100.0100, L500.2500 ####[facility] [address] [place], [address] Hematocrit (Bld) [Volume fraction] 33.7 % Low 37-47 [facility] Comment on above: Performed By: #### L 100.0100, L500.2500 ####[facility] [address] [place], [address] Hemoglobin (Bld) [Mass/Vol] 11.2 g/dL Low 12.0-15.0 [facility] Comment on above: Performed By: #### L 100.0100, L500.2500 ####[facility] [address] [place], [address] IG% 0.300 Normal 0.0-0.9 [facility] Comment on above: Result Comment: IG% - Immature Granulocytes (promyelocytes, myelocytes andmetamyelocytes) > 1% indicates that a LEFT SHIFT is Present. Performed By: #### L 100.0100, L500.2500 ####[facility] [address] [place], [address] Lymphocytes/100 WBC (Bld) 24.4 % Normal 19-41 [facility] Comment on above: Performed By: #### L 100.0100, L500.2500 ####[facility] [address] [place], [address] MCH (RBC) [Entitic mass] 28.2 pg Normal 27.0-32.0 [facility] Comment on above: Performed By: #### L 100.0100, L500.2500 ####[facility] [address] [place], [address] MCHC (RBC) [Mass/Vol] 33.2 g/dL Normal 32-36 [facility] Comment on above: Performed By: #### L 100.0100, L500.2500 ####[facility] [address] [place], [address] MCV (RBC) [Entitic vol] 84.9 fL Normal 81-99 [facility] Comment on above: Performed By: #### L 100.0100, L500.2500 ####[facility] [address] [place], [address] Monocytes/100 WBC (Bld) 7.6 % Normal 0-10 [facility] Comment on above: Performed By: #### L 100.0100, L500.2500 ####[facility] [address] [place], [address] Neutrophils/100 WBC (Bld) 64.7 % Normal 47-70 [facility] Comment on above: Performed By: #### L 100.0100, L500.2500 ####[facility] [address] [place], [address] Nucleated RBC (Bld) [#/Vol] 0 10*3/uL Normal 0-5 [facility] Comment on above: Performed By: #### L 100.0100, L500.2500 ####[facility] [address] [place], [address] Platelet mean volume (Bld) [Entitic vol] 9.3 fL Normal 6.2-12.0 [facility] Comment on above: Performed By: #### L 100.0100, L500.2500 ####[facility] [address] [place], [address] Platelets (Bld) [#/Vol] 205 10*3/uL Normal 150-450 [facility] Comment on above: Performed By: #### L 100.0100, L500.2500 ####[facility] [address] [place], [address] RBC (Bld) [#/Vol] 3.97 10*6/uL Low 4.2-5.4 [facility] Comment on above: Performed By: #### L 100.0100, L500.2500 ####[facility] [address] [place], [address] RDW SD 43.4 fl Normal 35.1-43.9 [facility] Comment on above: Performed By: #### L 100.0100, L500.2500 ####[facility] [address] [place], [address] WBC (Bld) [#/Vol] 9.0 10*3/uL Normal 4.4-11.0 [facility] Comment on above: Performed By: #### L 100.0100, L500.2500 ####[facility] [address] [place], [address] Clostridium difficile detect ion by polymerase chain reactionOrdered By: Latricia Burdick on 08-29-2024 C. difficile DNA CRISSY+probe Ql (Unsp spec) [facility] ALP [Catalytic activity/Vol] Ordered By: Nicole Trujillo on 08-28-2024 Serum or plasma alkaline phosphatase measurement 115 U/L High 35-104 [facility] ALT [Catalytic activity/Vol] Ordered By: Nicole Trujillo on 08-28-2024 Serum or plasma alanine aminotransferase (ALT) measurement 11 U/L <35 [facility] Albumin [Mass/Vol]Ordered By : Nicole Trujillo on 08-28-2024 Serum or plasma albumin measurement (mass/volume) 3.2 g/dL Low 3.5-5.0 [facility] Albumin/Globulin [Mass ratio ]Ordered By: Nicole Trujillo on 08-28-2024 Serum or plasma albumin/globulin mass ratio 1.1 RATIO 0.9-2.4 [facility] Bedside Glucoseon 08-28-2024 FINGERSTICK GLU 182 mg/dL High 74-106 [facility] Comment on above: Result Comment: TALIA GEMENT OF PATIENT CARE PER NURSING PROTOCOL Performed By: #### L 501.080 ####[facility] [address] [place], [address] FINGERSTICK GLU 176 mg/dL High 74-106 [facility] Comment on above: Result Comment: TALIA GEMENT OF PATIENT CARE PER NURSING PROTOCOL Performed By: #### L 501.080 ####[facility] [address] [place], [address] FINGERSTICK GLU 192 mg/dL High 74-106 [facility] Comment on above: Result Comment: TALIA GEMENT OF PATIENT CARE PER NURSING PROTOCOL Performed By: #### L 501.080 ####[facility] [address] [place], [address] FINGERSTICK GLU 157 mg/dL High 74-106 [facility] Comment on above: Result Comment: TALIA GEMENT OF PATIENT CARE PER NURSING PROTOCOL Performed By: #### L 501.080 ####[facility] [address] [place], [address] Bilirubin, totalOrdered By: Nicole Trujillo on 08-28-2024 Bilirubin [Mass/Vol] 0.53 mg/dL 0.00-1.30 [facility] Bilirubin, total 0.53 mg/dL 0.00-1.30 [facility] CBC W/Diff, Automatedon 08-03 Absolute Lymph 1.79 X10 3/uL Normal 0.83-4.51 [facility] Comment on above: Performed By: #### L 501.2300, L100.0100, L500.4050, L501.5200 ####[facility] [address] [place], [address] Absolute Neut 5.2 X10 3/uL Normal 2.0-7.7 [facility] Comment on above: Performed By: #### L 501.2300, L100.0100, L500.4050, L501.5200 ####[facility] [address] [place], [address] Basophils/100 WBC (Bld) 0.5 % Normal 0-1 [facility] Comment on above: Performed By: #### L 501.2300, L100.0100, L500.4050, L501.5200 ####[facility] [address] [place], [address] Eosinophils/100 WBC (Bld) 3.0 % Normal 0-5 [facility] Comment on above: Performed By: #### L 501.2300, L100.0100, L500.4050, L501.5200 ####[facility] [address] [place], [address] Erythrocyte distribution width (RBC) [Ratio] 14.3 % Normal 11.6-14.6 [facility] Comment on above: Performed By: #### L 501.2300, L100.0100, L500.4050, L501.5200 ####[facility] [address] [place], [address] Hematocrit (Bld) [Volume fraction] 34.8 % Low 37-47 [facility] Comment on above: Performed By: #### L 501.2300, L100.0100, L500.4050, L501.5200 ####[facility] [address] [place], [address] Hemoglobin (Bld) [Mass/Vol] 11.7 g/dL Low 12.0-15.0 [facility] Comment on above: Performed By: #### L 501.2300, L100.0100, L500.4050, L501.5200 ####[facility] [address] [place], [address] IG% 0.400 Normal 0.0-0.9 [facility] Comment on above: Result Comment: IG% - Immature Granulocytes (promyelocytes, myelocytes andmetamyelocytes) > 1% indicates that a LEFT SHIFT is Present. Performed By: #### L 501.2300, L100.0100, L500.4050, L501.5200 ####[facility] [address] [place], [address] Lymphocytes/100 WBC (Bld) 22.7 % Normal 19-41 [facility] Comment on above: Performed By: #### L 501.2300, L100.0100, L500.4050, L501.5200 ####[facility] [address] [place], [address] MCH (RBC) [Entitic mass] 27.8 pg Normal 27.0-32.0 [facility] Comment on above: Performed By: #### L 501.2300, L100.0100, L500.4050, L501.5200 ####[facility] [address] [place], [address] MCHC (RBC) [Mass/Vol] 33.6 g/dL Normal 32-36 [facility] Comment on above: Performed By: #### L 501.2300, L100.0100, L500.4050, L501.5200 ####[facility] [address] [place], [address] MCV (RBC) [Entitic vol] 82.7 fL Normal 81-99 [facility] Comment on above: Performed By: #### L 501.2300, L100.0100, L500.4050, L501.5200 ####[facility] [address] [place], [address] Monocytes/100 WBC (Bld) 6.7 % Normal 0-10 [facility] Comment on above: Performed By: #### L 501.2300, L100.0100, L500.4050, L501.5200 ####[facility] [address] [place], [address] Neutrophils/100 WBC (Bld) 66.7 % Normal 47-70 [facility] Comment on above: Performed By: #### L 501.2300, L100.0100, L500.4050, L501.5200 ####[facility] [address] [place], [address] Nucleated RBC (Bld) [#/Vol] 0.3 10*3/uL Normal 0-5 [facility] Comment on above: Performed By: #### L 501.2300, L100.0100, L500.4050, L501.5200 ####[facility] [address] [place], [address] Platelet mean volume (Bld) [Entitic vol] 9.8 fL Normal 6.2-12.0 [facility] Comment on above: Performed By: #### L 501.2300, L100.0100, L500.4050, L501.5200 ####[facility] [address] [place], [address] Platelets (Bld) [#/Vol] 203 10*3/uL Normal 150-450 [facility] Comment on above: Performed By: #### L 501.2300, L100.0100, L500.4050, L501.5200 ####[facility] [address] [place], [address] RBC (Bld) [#/Vol] 4.21 10*6/uL Normal 4.2-5.4 [facility] Comment on above: Performed By: #### L 501.2300, L100.0100, L500.4050, L501.5200 ####[facility] [address] [place], [address] RDW SD 42.4 fl Normal 35.1-43.9 [facility] Comment on above: Performed By: #### L 501.2300, L100.0100, L500.4050, L501.5200 ####[facility] [address] [place], [address] WBC (Bld) [#/Vol] 7.9 10*3/uL Normal 4.4-11.0 [facility] Comment on above: Performed By: #### L 501.2300, L100.0100, L500.4050, L501.5200 ####[facility] [address] [place], [address] Comprehensive Metabolic Prof ilon 08-28-2024 Albumin [Mass/Vol] 3.2 g/dL Low 3.5-5.0 [facility] Comment on above: Performed By: #### L 501.2300, L100.0100, L500.4050, L501.5200 ####[facility] [address] [place], [address] Albumin/Globulin [Mass ratio] 1.1 {ratio} Normal 0.9-2.4 [facility] Comment on above: Performed By: #### L 501.2300, L100.0100, L500.4050, L501.5200 ####[facility] [address] [place], [address] ALK PHOS 115 U/L High 35-104 [facility] Comment on above: Performed By: #### L 501.2300, L100.0100, L500.4050, L501.5200 ####[facility] [address] [place], [address] ALT [Catalytic activity/Vol] 11 U/L Normal <=34 [facility] Comment on above: Performed By: #### L 501.2300, L100.0100, L500.4050, L501.5200 ####[facility] [address] [place], [address] AST [Catalytic activity/Vol] 20 U/L Normal <=31 [facility] Comment on above: Performed By: #### L 501.2300, L100.0100, L500.4050, L501.5200 ####[facility] [address] [place], [address] Bilirubin [Mass/Vol] 0.53 mg/dL Normal 0.00-1.30 [facility] Comment on above: Performed By: #### L 501.2300, L100.0100, L500.4050, L501.5200 ####[facility] [address] [place], [address] BUN/CRE 27.2 RATIO High 10-20 [facility] Comment on above: Performed By: #### L 501.2300, L100.0100, L500.4050, L501.5200 ####[facility] [address] [place], [address] Calcium [Mass/Vol] 9.1 mg/dL Normal 7.6-11.0 [facility] Comment on above: Performed By: #### L 501.2300, L100.0100, L500.4050, L501.5200 ####[facility] [address] [place], [address] Chloride [Moles/Vol] 104 mmol/L Normal 98-108 [facility] Comment on above: Performed By: #### L 501.2300, L100.0100, L500.4050, L501.5200 ####[facility] [address] [place], [address] CO2 [Moles/Vol] 21.5 mmol/L Normal 21.0-32.0 [facility] Comment on above: Performed By: #### L 501.2300, L100.0100, L500.4050, L501.5200 ####[facility] [address] [place], [address] Creatinine [Mass/Vol] 0.71 mg/dL Normal 0.70-1.20 [facility] Comment on above: Performed By: #### L 501.2300, L100.0100, L500.4050, L501.5200 ####[facility] [address] [place], [address] ECRCL 99.53 ml/min Normal 50-250 [facility] Comment on above: Performed By: #### L 501.2300, L100.0100, L500.4050, L501.5200 ####[facility] [address] [place], [address] GAP 10 Normal 5-15 [facility] Comment on above: Performed By: #### L 501.2300, L100.0100, L500.4050, L501.5200 ####[facility] [address] [place], [address] GFR/1.73 sq M.predicted among non-blacks MDRD (S/P/Bld) [Vol rate/Area] 101 mL/min/{1.73_m2} Normal >60 [facility] Comment on above: Result Comment: mL/m in/1.73m2 CKD-EPI Creatinine Equation (2020) Performed By: #### L 501.2300, L100.0100, L500.4050, L501.5200 ####[facility] [address] [place], [address] Globulin (S) [Mass/Vol] 3.0 g/dL Normal 2.2-4.2 [facility] Comment on above: Performed By: #### L 501.2300, L100.0100, L500.4050, L501.5200 ####[facility] [address] [place], [address] Glucose [Mass/Vol] 159 mg/dL High 70-99 [facility] Comment on above: Performed By: #### L 501.2300, L100.0100, L500.4050, L501.5200 ####[facility] [address] [place], [address] Potassium [Moles/Vol] 3.8 mmol/L Normal 3.3-5.1 [facility] Comment on above: Result Comment: Hemo lysis present, Results??could be affected.?? Performed By: #### L 501.2300, L100.0100, L500.4050, L501.5200 ####[facility] [address] [place], [address] Sodium [Moles/Vol] 135 mmol/L Normal 133-145 [facility] Comment on above: Performed By: #### L 501.2300, L100.0100, L500.4050, L501.5200 ####[facility] [address] [place], [address] T PROT 6.3 g/dL Normal 5.9-8.4 [facility] Comment on above: Performed By: #### L 501.2300, L100.0100, L500.4050, L501.5200 ####[facility] [address] [place], [address] Urea nitrogen [Mass/Vol] 19 mg/dL Normal 4-19 [facility] Comment on above: Performed By: #### L 501.2300, L100.0100, L500.4050, L501.5200 ####[facility] [address] [place], [address] Magnesiumon 08-28-2024 Magnesium [Mass/Vol] 2.1 mg/dL Normal 1.5-2.2 [facility] Comment on above: Performed By: #### L 501.2300, L100.0100, L500.4050, L501.5200 ####[facility] [address] [place], [address] No Panel InformationOrdered By: Nicole Trujillo on 08-28-2024 20 U/L <32 [facility] Phosphoruson 08-28-2024 Phosphate [Mass/Vol] 2.7 mg/dL Normal 2.7-4.5 [facility] Comment on above: Performed By: #### L 501.2300, L100.0100, L500.4050, L501.5200 ####[facility] [address] [place], [address] Serum globulin measurementOr dered By: Nicole Trujillo on 08-28-2024 Globulin (S) [Mass/Vol] 3.0 g/dL 2.2-4.2 [facility] Serum globulin measurement 3.0 g/dL 2.2-4.2 [facility] Serum or plasma alanine hamilton otransferase (ALT) measurementOrdered By: Nicole Trujillo on 08-28-2024 ALT [Catalytic activity/Vol] 11 U/L <35 [facility] Serum or plasma albumin xiomara urement (mass/volume)Ordered By: Nicole Trujillo on 08-28-2024 Albumin [Mass/Vol] 3.2 g/dL Low 3.5-5.0 [facility] Serum or plasma albumin/glob ulin mass ratioOrdered By: Nicole Trujillo on 08-28-2024 Albumin/Globulin [Mass ratio] 1.1 {ratio} 0.9-2.4 [facility] Serum or plasma alkaline sabiha sphatase measurementOrdered By: Nicole Trujillo on 08-28-2024 ALP [Catalytic activity/Vol] 115 U/L High 35-104 [facility] Total proteinOrdered By: Jenae Trujillo on 08-28-2024 Protein [Mass/Vol] 6.3 g/dL 5.9-8.4 [facility] Total protein 6.3 g/dL 5.9-8.4 [facility] Activated partial thrombopla stin time (aPTT) in platelet poor plasma by coagulation aOrdered By: Brenda Posadas on 08-27-2024 aPTT Coag (PPP) [Time] 44.8 s High 24.1-36.2 [facility] Ankle Brachial Indexon 08-27 Ankle Brachial Index Normal [facility] Arterial study reportOrdered By: Riccardo Ng on 08-27-2024 Noninvasive arteriosclerosis study report [facility] Work Phone: Basic Metabolic Profile (BMP )on 08-27-2024 BUN/CRE 15.2 RATIO Normal 10-20 [facility] Comment on above: Performed By: #### L 500.2500 ####[facility] [address] [place], [address] Calcium [Mass/Vol] 8.8 mg/dL Normal 7.6-11.0 [facility] Comment on above: Performed By: #### L 500.2500 ####[facility] [address] [place], [address] Chloride [Moles/Vol] 103 mmol/L Normal 98-108 [facility] Comment on above: Performed By: #### L 500.2500 ####[facility] [address] [place], [address] CO2 [Moles/Vol] 24.9 mmol/L Normal 21.0-32.0 [facility] Comment on above: Performed By: #### L 500.2500 ####[facility] [address] [place], [address] Creatinine [Mass/Vol] 0.79 mg/dL Normal 0.70-1.20 [facility] Comment on above: Performed By: #### L 500.2500 ####[facility] [address] [place], [address] ECRCL 89.03 ml/min Normal 50-250 [facility] Comment on above: Performed By: #### L 500.2500 ####[facility] [address] [place], [address] GAP 10 Normal 5-15 [facility] Comment on above: Performed By: #### L 500.2500 ####[facility] [address] [place], [address] GFR/1.73 sq M.predicted among non-blacks MDRD (S/P/Bld) [Vol rate/Area] 89 mL/min/{1.73_m2} Normal >60 [facility] Comment on above: Result Comment: mL/m in/1.73m2 CKD-EPI Creatinine Equation (2020) Performed By: #### L 500.2500 ####[facility] [address] [place], [address] Glucose [Mass/Vol] 274 mg/dL High 70-99 [facility] Comment on above: Performed By: #### L 500.2500 ####[facility] [address] [place], [address] Potassium [Moles/Vol] 2.8 mmol/L Low 3.3-5.1 [facility] Comment on above: Performed By: #### L 500.2500 ####[facility] [address] [place], [address] Sodium [Moles/Vol] 137 mmol/L Normal 133-145 [facility] Comment on above: Performed By: #### L 500.2500 ####[facility] [address] [place], [address] Urea nitrogen [Mass/Vol] 12 mg/dL Normal 4-19 [facility] Comment on above: Performed By: #### L 500.2500 ####[facility] [address] [place], [address] Bedside Glucoseon 08-27-2024 FINGERSTICK GLU 203 mg/dL High 74-106 [facility] Comment on above: Result Comment: TALIA GEMENT OF PATIENT CARE PER NURSING PROTOCOL Performed By: #### L 501.080 ####[facility] [address] [place], [address] FINGERSTICK GLU 205 mg/dL High 74-106 [facility] Comment on above: Result Comment: TALIA GEMENT OF PATIENT CARE PER NURSING PROTOCOL Performed By: #### L 501.080 ####[facility] [address] [place], [address] FINGERSTICK GLU 225 mg/dL High 74-106 [facility] Comment on above: Result Comment: TALIA CHAMBERS OF PATIENT CARE PER NURSING PROTOCOL Performed By: #### L 501.080 ####[facility] [address] [place], [address] CBC W/Diff, Automatedon 08-03 Absolute Lymph 1.77 X10 3/uL Normal 0.83-4.51 [facility] Comment on above: Performed By: #### L 300.3900, L100.0100, L501.9520, L500.4050 ####[facility] [address] [place], [address] Absolute Neut 6.2 X10 3/uL Normal 2.0-7.7 [facility] Comment on above: Performed By: #### L 300.3900, L100.0100, L501.9520, L500.4050 ####[facility] [address] [place], [address] Basophils/100 WBC (Bld) 0.7 % Normal 0-1 [facility] Comment on above: Performed By: #### L 300.3900, L100.0100, L501.9520, L500.4050 ####[facility] [address] [place], [address] Eosinophils/100 WBC (Bld) 1.6 % Normal 0-5 [facility] Comment on above: Performed By: #### L 300.3900, L100.0100, L501.9520, L500.4050 ####[facility] [address] [place], [address] Erythrocyte distribution width (RBC) [Ratio] 13.7 % Normal 11.6-14.6 [facility] Comment on above: Performed By: #### L 300.3900, L100.0100, L501.9520, L500.4050 ####[facility] [address] [place], [address] Hematocrit (Bld) [Volume fraction] 33.8 % Low 37-47 [facility] Comment on above: Performed By: #### L 300.3900, L100.0100, L501.9520, L500.4050 ####[facility] [address] [place], [address] Hemoglobin (Bld) [Mass/Vol] 11.6 g/dL Low 12.0-15.0 [facility] Comment on above: Performed By: #### L 300.3900, L100.0100, L501.9520, L500.4050 ####[facility] [address] [place], [address] IG% 0.300 Normal 0.0-0.9 [facility] Comment on above: Result Comment: IG% - Immature Granulocytes (promyelocytes, myelocytes andmetamyelocytes) > 1% indicates that a LEFT SHIFT is Present. Performed By: #### L 300.3900, L100.0100, L501.9520, L500.4050 ####[facility] [address] [place], [address] Lymphocytes/100 WBC (Bld) 20.6 % Normal 19-41 [facility] Comment on above: Performed By: #### L 300.3900, L100.0100, L501.9520, L500.4050 ####[facility] [address] [place], [address] MCH (RBC) [Entitic mass] 28.2 pg Normal 27.0-32.0 [facility] Comment on above: Performed By: #### L 300.3900, L100.0100, L501.9520, L500.4050 ####[facility] [address] [place], [address] MCHC (RBC) [Mass/Vol] 34.3 g/dL Normal 32-36 [facility] Comment on above: Performed By: #### L 300.3900, L100.0100, L501.9520, L500.4050 ####[facility] [address] [place], [address] MCV (RBC) [Entitic vol] 82.0 fL Normal 81-99 [facility] Comment on above: Performed By: #### L 300.3900, L100.0100, L501.9520, L500.4050 ####[facility] [address] [place], [address] Monocytes/100 WBC (Bld) 4.4 % Normal 0-10 [facility] Comment on above: Performed By: #### L 300.3900, L100.0100, L501.9520, L500.4050 ####[facility] [address] [place], [address] Neutrophils/100 WBC (Bld) 72.4 % High 47-70 [facility] Comment on above: Performed By: #### L 300.3900, L100.0100, L501.9520, L500.4050 ####[facility] [address] [place], [address] Nucleated RBC (Bld) [#/Vol] 0 10*3/uL Normal 0-5 [facility] Comment on above: Performed By: #### L 300.3900, L100.0100, L501.9520, L500.4050 ####[facility] [address] [place], [address] Platelet mean volume (Bld) [Entitic vol] 9.2 fL Normal 6.2-12.0 [facility] [facility] Comment on above: Performed By: #### L 300.3900, L100.0100, L501.9520, L500.4050 ####[facility] [address] [place], [address] Platelets (Bld) [#/Vol] 229 10*3/uL Normal 150-450 [facility] Comment on above: Performed By: #### L 300.3900, L100.0100, L501.9520, L500.4050 ####[facility] [address] [place], [address] RBC (Bld) [#/Vol] 4.12 10*6/uL Low 4.2-5.4 [facility] Comment on above: Performed By: #### L 300.3900, L100.0100, L501.9520, L500.4050 ####[facility] [address] [place], [address] RDW SD 40.4 fl Normal 35.1-43.9 [facility] Comment on above: Performed By: #### L 300.3900, L100.0100, L501.9520, L500.4050 ####[facility] [address] [place], [address] WBC (Bld) [#/Vol] 8.6 10*3/uL Normal 4.4-11.0 [facility] Comment on above: Performed By: #### L 300.3900, L100.0100, L501.9520, L500.4050 ####[facility] [address] [place], [address] Comprehensive Metabolic Prof ilon 08-27-2024 Albumin [Mass/Vol] 3.1 g/dL Low 3.5-5.0 [facility] Comment on above: Performed By: #### L 300.3900, L100.0100, L501.9520, L500.4050 ####[facility] [address] [place], [address] Albumin/Globulin [Mass ratio] 1.1 {ratio} Normal 0.9-2.4 [facility] Comment on above: Performed By: #### L 300.3900, L100.0100, L501.9520, L500.4050 ####[facility] [address] [place], [address] ALK PHOS 117 U/L High 35-104 [facility] Comment on above: Performed By: #### L 300.3900, L100.0100, L501.9520, L500.4050 ####[facility] [address] [place], [address] ALT [Catalytic activity/Vol] 13 U/L Normal <=34 [facility] Comment on above: Performed By: #### L 300.3900, L100.0100, L501.9520, L500.4050 ####[facility] [address] [place], [address] AST [Catalytic activity/Vol] 20 U/L Normal <=31 [facility] Comment on above: Performed By: #### L 300.3900, L100.0100, L501.9520, L500.4050 ####[facility] [address] [place], [address] Bilirubin [Mass/Vol] 0.61 mg/dL Normal 0.00-1.30 [facility] Comment on above: Performed By: #### L 300.3900, L100.0100, L501.9520, L500.4050 ####[facility] [address] [place], [address] BUN/CRE 16.7 RATIO Normal 10-20 [facility] Comment on above: Performed By: #### L 300.3900, L100.0100, L501.9520, L500.4050 ####[facility] [address] [place], [address] Calcium [Mass/Vol] 8.8 mg/dL Normal 7.6-11.0 [facility] Comment on above: Performed By: #### L 300.3900, L100.0100, L501.9520, L500.4050 ####[facility] [address] [place], [address] Chloride [Moles/Vol] 102 mmol/L Normal 98-108 [facility] Comment on above: Performed By: #### L 300.3900, L100.0100, L501.9520, L500.4050 ####[facility] [address] [place], [address] CO2 [Moles/Vol] 23.8 mmol/L Normal 21.0-32.0 [facility] Comment on above: Performed By: #### L 300.3900, L100.0100, L501.9520, L500.4050 ####[facility] [address] [place], [address] Creatinine [Mass/Vol] 0.65 mg/dL Low 0.70-1.20 [facility] Comment on above: Performed By: #### L 300.3900, L100.0100, L501.9520, L500.4050 ####[facility] [address] [place], [address] ECRCL 107.70 ml/min Normal 50-250 [facility] Comment on above: Performed By: #### L 300.3900, L100.0100, L501.9520, L500.4050 ####[facility] [address] [place], [address] GAP 9 Normal 5-15 [facility] Comment on above: Performed By: #### L 300.3900, L100.0100, L501.9520, L500.4050 ####[facility] [address] [place], [address] GFR/1.73 sq M.predicted among non-blacks MDRD (S/P/Bld) [Vol rate/Area] 105 mL/min/{1.73_m2} Normal >60 [facility] Comment on above: Result Comment: mL/m in/1.73m2 CKD-EPI Creatinine Equation (2020) Performed By: #### L 300.3900, L100.0100, L501.9520, L500.4050 ####[facility] [address] [place], [address] Globulin (S) [Mass/Vol] 2.9 g/dL Normal 2.2-4.2 [facility] Comment on above: Performed By: #### L 300.3900, L100.0100, L501.9520, L500.4050 ####[facility] [address] [place], [address] Glucose [Mass/Vol] 293 mg/dL High 70-99 [facility] Comment on above: Performed By: #### L 300.3900, L100.0100, L501.9520, L500.4050 ####[facility] [address] [place], [address] Potassium [Moles/Vol] 2.5 mmol/L Invalid Interpretation Code 3.3-5.1 [facility] Comment on above: Result Comment: Crit ical Result(s) Called at:0352 by:??MARTITA FARLEY Results read back by same. Performed By: #### L 300.3900, L100.0100, L501.9520, L500.4050 ####[facility] [address] [place], [address] Sodium [Moles/Vol] 136 mmol/L Normal 133-145 [facility] Comment on above: Performed By: #### L 300.3900, L100.0100, L501.9520, L500.4050 ####[facility] [address] [place], [address] T PROT 5.9 g/dL Normal 5.9-8.4 [facility] Comment on above: Performed By: #### L 300.3900, L100.0100, L501.9520, L500.4050 ####[facility] [address] [place], [address] Urea nitrogen [Mass/Vol] 11 mg/dL Normal 4-19 [facility] Comment on above: Performed By: #### L 300.3900, L100.0100, L501.9520, L500.4050 ####[facility] [address] [place], [address] Consultation - Surgicalon Consultation - Surgical Normal [facility] Electrocardiogram reportOrde red By: Alli Brito on 08-27-2024 EKG study [facility] Work Phone: International normalized rat io (INR) calculationOrdered By: Brenda Posadas on 08-27-2024 International normalized ratio (INR) calculation 1.0 [facility] Magnetic resonance imaging r eportOrdered By: Latricia Vargas on 08-27-2024 Study report [facility] Partial Thromboplast Timeon 08-27-2024 aPTT Coag (Bld) [Time] 44.8 s High 24.1-36.2 [facility] Comment on above: Performed By: #### L 300.4310 ####[facility] [address] [place], [address] aPTT Coag (Bld) [Time] 79.3 s High 24.1-36.2 [facility] Comment on above: Performed By: #### L 300.4310 ####[facility] [address] [place], [address] Prothrombin Time w/INRon INR Coag (PPP) [Relative time] 1.0 {INR} Normal [facility] Comment on above: Performed By: #### L 300.3900, L100.0100, L501.9520, L500.4050 ####[facility] [address], [address] PT Coag (PPP) [Time] 13.2 s Normal 11.7-14.9 [facility] Comment on above: Performed By: #### L 300.3900, L100.0100, L501.9520, L500.4050 ####[facility] [address] [place], [address] Prothrombin timeOrdered By: Brenda Posadas on 08-27-2024 PT Coag (PPP) [Time] 13.2 s 11.7-14.9 [facility] Prothrombin time 13.2 SECONDS 11.7-14.9 [facility] Spine Lumbar (Routine)on Spine Lumbar (Routine) Normal [facility] TSH DL <= 0.005 mIU/L QnOrde red By: Brenda Posadas on 08-27-2024 TSH Qn 1.180 uIU/mL 0.300-4.20 0 [facility] Serum or plasma thyroid stimulating hormone (TSH) measurement by high sensitivity met 1.180 uIU/mL 0.300-4.20 0 [facility] Thyroid Stim Hormone (TSH)on 08-27-2024 TSH 1.180 uIU/mL Normal 0.300-4.20 0 [facility] Comment on above: Performed By: #### L 300.3900, L100.0100, L501.9520, L500.4050 ####[facility] [address], [address] aPTT Coag (PPP) [Time]Ordere d By: Brenda Posadas on 08-27-2024 Activated partial thromboplastin time (aPTT) in platelet poor plasma by coagulation a 44.8 Seconds High 24.1-36.2 [facility] 12 Lead EKGon 08-26-2024 12 Lead EKG Normal [facility] ALP [Catalytic activity/Vol] Ordered By: Jeison Abrams on 08-26-2024 Serum or plasma alkaline phosphatase measurement 134 U/L High 35-104 [facility] ALT [Catalytic activity/Vol] Ordered By: Jeison Abrams on 08-26-2024 Serum or plasma alanine aminotransferase (ALT) measurement 14 U/L <35 [facility] Absolute neutrophil countOrd ered By: Jeison Abrams on 08-26-2024 Absolute neutrophil count 5.2 X10^3/uL 2.0-7.7 [facility] Albumin [Mass/Vol]Ordered By : Jeison Abrams on 08-26-2024 Serum or plasma albumin measurement (mass/volume) 3.6 g/dL 3.5-5.0 [facility] Anion gap [Moles/Vol]Ordered By: Jeison Abrams on 08-26-2024 Anion gap in Serum or Plasma 11 5-15 [facility] BUN/creatinine ratioOrdered By: Jeison Abrams on 08-26-2024 BUN/creatinine ratio 14.1 RATIO 10-20 [facility] Basic Metabolic Profile (BMP )on 08-26-2024 BUN/CRE 14.1 RATIO Normal 10-20 [facility] Comment on above: Performed By: #### L 300.3900, L503.7505, L500.2500, L100.0100, L300.4310, L503.6005, L500.3400 ####[facility] [address] [place], [place], [id number] Calcium [Mass/Vol] 9.2 mg/dL Normal 7.6-11.0 [facility] Comment on above: Performed By: #### L 300.3900, L503.7505, L500.2500, L100.0100, L300.4310, L503.6005, L500.3400 ####[facility] [address] [place], [address] Chloride [Moles/Vol] 102 mmol/L Normal 98-108 [facility] Comment on above: Performed By: #### L 300.3900, L503.7505, L500.2500, L100.0100, L300.4310, L503.6005, L500.3400 ####[facility] [address] [place], [address] CO2 [Moles/Vol] 22.3 mmol/L Normal 21.0-32.0 [facility] Comment on above: Performed By: #### L 300.3900, L503.7505, L500.2500, L100.0100, L300.4310, L503.6005, L500.3400 ####[facility] [address] [place], [address] Creatinine [Mass/Vol] 0.74 mg/dL Normal 0.70-1.20 [facility] Comment on above: Performed By: #### L 300.3900, L503.7505, L500.2500, L100.0100, L300.4310, L503.6005, L500.3400 ####[facility] [address] [place], [address] ECRCL 97.71 ml/min Normal 50-250 [facility] Comment on above: Performed By: #### L 300.3900, L503.7505, L500.2500, L100.0100, L300.4310, L503.6005, L500.3400 ####[facility] [address] [place], [address] GAP 11 Normal 5-15 [facility] Comment on above: Performed By: #### L 300.3900, L503.7505, L500.2500, L100.0100, L300.4310, L503.6005, L500.3400 ####[facility] [address] [place], [address] GFR/1.73 sq M.predicted among non-blacks MDRD (S/P/Bld) [Vol rate/Area] 97 mL/min/{1.73_m2} Normal >60 [facility] Comment on above: Result Comment: mL/m in/1.73m2 CKD-EPI Creatinine Equation (2020) Performed By: #### L 300.3900, L503.7505, L500.2500, L100.0100, L300.4310, L503.6005, L500.3400 ####[facility] [address] [place], [address] Glucose [Mass/Vol] 315 mg/dL High 70-99 [facility] Comment on above: Performed By: #### L 300.3900, L503.7505, L500.2500, L100.0100, L300.4310, L503.6005, L500.3400 ####[facility] [address] [place], [address] Potassium [Moles/Vol] 3.4 mmol/L Normal 3.3-5.1 [facility] Comment on above: Result Comment: Hemo lysis present, Results??could be affected.?? Performed By: #### L 300.3900, L503.7505, L500.2500, L100.0100, L300.4310, L503.6005, L500.3400 ####[facility] [address] [place], [address] Sodium [Moles/Vol] 135 mmol/L Normal 133-145 [facility] Comment on above: Performed By: #### L 300.3900, L503.7505, L500.2500, L100.0100, L300.4310, L503.6005, L500.3400 ####[facility] [address] [place], [address] Urea nitrogen [Mass/Vol] 10 mg/dL Normal 4-19 [facility] Comment on above: Performed By: #### L 300.3900, L503.7505, L500.2500, L100.0100, L300.4310, L503.6005, L500.3400 ####[facility] [address] [place], [address] Basophil percentageOrdered B y: Jeison Abrams on 08-26-2024 Basophil percentage 0.7 % 0-1 [facility] Bedside Glucoseon 08-26-2024 FINGERSTICK GLU 193 mg/dL High 74-106 [facility] Comment on above: Result Comment: TALIA CHAMBERS OF PATIENT CARE PER NURSING PROTOCOL Performed By: #### L 501.080 ####[facility] [address] [place], [address] Bilirubin directOrdered By: Jeison Abrams on 08-26-2024 Bilirubin.direct [Mass/Vol] 0.08 mg/dL 0.00-0.30 [facility] Bilirubin, totalOrdered By: Jeison Abrams on 08-26-2024 Bilirubin, total 0.52 mg/dL 0.00-1.30 [facility] Bilirubin.direct [Mass/Vol]O rdered By: Jeison Abrams on 08-26-2024 Bilirubin direct 0.08 mg/dL 0.00-0.30 [facility] CBC W/Diff, Automatedon 08-03 Absolute Lymph 1.57 X10 3/uL Normal 0.83-4.51 [facility] Comment on above: Performed By: #### L 300.3900, L503.7505, L500.2500, L100.0100, L300.4310, L503.6005, L500.3400 ####[facility] [address] [place], [address]) Absolute Neut 5.2 X10 3/uL Normal 2.0-7.7 [facility] Comment on above: Performed By: #### L 300.3900, L503.7505, L500.2500, L100.0100, L300.4310, L503.6005, L500.3400 ####[facility] [address] [place], [address] Basophils/100 WBC (Bld) 0.7 % Normal 0-1 [facility] Comment on above: Performed By: #### L 300.3900, L503.7505, L500.2500, L100.0100, L300.4310, L503.6005, L500.3400 ####[facility] [address] [place], [address] Eosinophils/100 WBC (Bld) 2.8 % Normal 0-5 [facility] Comment on above: Performed By: #### L 300.3900, L503.7505, L500.2500, L100.0100, L300.4310, L503.6005, L500.3400 ####[facility] [address] [place], [address] Erythrocyte distribution width (RBC) [Ratio] 13.6 % Normal 11.6-14.6 [facility] Comment on above: Performed By: #### L 300.3900, L503.7505, L500.2500, L100.0100, L300.4310, L503.6005, L500.3400 ####[facility] [address] [place], [address] Hematocrit (Bld) [Volume fraction] 40.6 % Normal 37-47 [facility] Comment on above: Performed By: #### L 300.3900, L503.7505, L500.2500, L100.0100, L300.4310, L503.6005, L500.3400 ####[facility] [address] [place], [address] Hemoglobin (Bld) [Mass/Vol] 13.7 g/dL Normal 12.0-15.0 [facility] Comment on above: Performed By: #### L 300.3900, L503.7505, L500.2500, L100.0100, L300.4310, L503.6005, L500.3400 ####[facility] [address], [address] IG% 0.300 Normal 0.0-0.9 [facility] Comment on above: Result Comment: IG% - Immature Granulocytes (promyelocytes, myelocytes andmetamyelocytes) > 1% indicates that a LEFT SHIFT is Present. Performed By: #### L 300.3900, L503.7505, L500.2500, L100.0100, L300.4310, L503.6005, L500.3400 ####[facility] [address] [place], [address] Lymphocytes/100 WBC (Bld) 20.9 % Normal 19-41 [facility] Comment on above: Performed By: #### L 300.3900, L503.7505, L500.2500, L100.0100, L300.4310, L503.6005, L500.3400 ####[facility] [address] [place], [address] MCH (RBC) [Entitic mass] 27.8 pg Normal 27.0-32.0 [facility] Comment on above: Performed By: #### L 300.3900, L503.7505, L500.2500, L100.0100, L300.4310, L503.6005, L500.3400 ####[facility] [address] [place], [address] MCHC (RBC) [Mass/Vol] 33.7 g/dL Normal 32-36 [facility] Comment on above: Performed By: #### L 300.3900, L503.7505, L500.2500, L100.0100, L300.4310, L503.6005, L500.3400 ####[facility] [address] [place], [address] MCV (RBC) [Entitic vol] 82.4 fL Normal 81-99 [facility] Comment on above: Performed By: #### L 300.3900, L503.7505, L500.2500, L100.0100, L300.4310, L503.6005, L500.3400 ####[facility] [address] [place], [address] Monocytes/100 WBC (Bld) 5.7 % Normal 0-10 [facility] Comment on above: Performed By: #### L 300.3900, L503.7505, L500.2500, L100.0100, L300.4310, L503.6005, L500.3400 ####[facility] [address] [place], [address] Neutrophils/100 WBC (Bld) 69.6 % Normal 47-70 [facility] Comment on above: Performed By: #### L 300.3900, L503.7505, L500.2500, L100.0100, L300.4310, L503.6005, L500.3400 ####[facility] [address] [place], [address] Nucleated RBC (Bld) [#/Vol] 0 10*3/uL Normal 0-5 [facility] Comment on above: Performed By: #### L 300.3900, L503.7505, L500.2500, L100.0100, L300.4310, L503.6005, L500.3400 ####[facility] [address] [place], [address] Platelet mean volume (Bld) [Entitic vol] 9.1 fL Normal 6.2-12.0 [facility] Comment on above: Performed By: #### L 300.3900, L503.7505, L500.2500, L100.0100, L300.4310, L503.6005, L500.3400 ####[facility] [address] [place], [address] Platelets (Bld) [#/Vol] 225 10*3/uL Normal 150-450 [facility] Comment on above: Performed By: #### L 300.3900, L503.7505, L500.2500, L100.0100, L300.4310, L503.6005, L500.3400 ####[facility] [address] [place], [address] RBC (Bld) [#/Vol] 4.93 10*6/uL Normal 4.2-5.4 [facility] Comment on above: Performed By: #### L 300.3900, L503.7505, L500.2500, L100.0100, L300.4310, L503.6005, L500.3400 ####[facility] [address] [place], [address] RDW SD 40.2 fl Normal 35.1-43.9 [facility] Comment on above: Performed By: #### L 300.3900, L503.7505, L500.2500, L100.0100, L300.4310, L503.6005, L500.3400 ####[facility] [address] [place], [address] WBC (Bld) [#/Vol] 7.5 10*3/uL Normal 4.4-11.0 [facility] Comment on above: Performed By: #### L 300.3900, L503.7505, L500.2500, L100.0100, L300.4310, L503.6005, L500.3400 ####[facility] [address] [place], [address] CTA LWR EXTR W/O W/DYEon CTA LWR EXTR W/O W/DYE Normal [facility] Calcium [Mass/Vol]Ordered By : Jeison Abrams on 08-26-2024 Serum or plasma calcium measurement (mass/volume) 9.2 mg/dL 7.6-11.0 [facility] Carbon dioxide, total [Moles /volume] in Central venous bloodOrdered By: Jeison Abrams on 08-26-2024 Carbon dioxide, total [Moles/volume] in Central venous blood 22.3 mmol/L 21.0-32.0 [facility] Chest 1 View (Portable)on Chest 1 View (Portable) Normal [facility] Chloride assayOrdered By: Tristan Abrams on 08-26-2024 Chloride assay 102 mmol/L 98-108 [facility] Creatinine [Mass/Vol]Ordered By: Jeison Abrams on 08-26-2024 Serum creatinine measurement (mass/volume) 0.74 mg/dL 0.70-1.20 [facility] Emergency Department Summary on 08-26-2024 Emergency Department Summary Normal [facility] Eosinophil percentageOrdered By: Jeison Abrams on 08-26-2024 Eosinophil percentage 2.8 % 0-5 [facility] Erythrocyte distribution wid th (RBC) [Entitic vol]Ordered By: Jeison Abrams on 08-26-2024 Erythrocyte distribution width standard deviation 40.2 fl 35.1-43.9 [facility] Erythrocyte distribution wid th (RBC) [Ratio]Ordered By: Jeison Abrams on 08-26-2024 Erythrocyte distribution width ratio 13.6 % 11.6-14.6 [facility] Estimation of creatinine sylvain aranceOrdered By: Jeison Abrams on 08-26-2024 Estimation of creatinine clearance 97.71 ml/min 50-250 [facility] GFR/1.73 sq M.predicted estephanie g non-blacks MDRD (S/P/Bld) [Vol rate/Area]Ordered By: Jeison Abrams on 08-26-2024 Glomerular filtration rate (GFR) estimation/1.73 sq m using serum, plasma, or whole b 97 >60 [facility] Glucose [Mass/Vol]Ordered By : Jeison Abrams on 08-26-2024 Serum glucose measurement (mass/volume) 315 mg/dL High 70-99 [facility] H AND P Exam - Hospitaliston 08-26-2024 H&P Exam - Hospitalist Normal [facility] Hematocrit Auto (Bld) [Volum e fraction]Ordered By: Jeison Abrams on 08-26-2024 Automated blood hematocrit (percentage) 40.6 % 37-47 [facility] [facility] Hemoglobin measurementOrdere d By: Jeison Abrams on 08-26-2024 Hemoglobin measurement 13.7 g/dL 12.0-15.0 [facility] Immature granulocytes/100 WB C Auto (Bld)Ordered By: Jeison Abrams on 08-26-2024 Automated immature granulocyte percentage 0.300 % 0.0-0.9 [facility] International normalized rat io (INR) calculationOrdered By: Vaughn Daugherty on 08-26-2024 International normalized ratio (INR) calculation 1.0 [facility] L503.7505on 08-26-2024 Natriuretic peptide B (Bld) [Mass/Vol] 1489 pg/mL High <=900 [facility] Comment on above: Result Comment: Hear t Failure Unlikely: < 300 pg/mLHeart Failure Likely< 50 Years: > 450 pg/mL50-75 Years: > 900 pg/mL>75 Years: > 1800 pg/mL Performed By: #### L 300.3900, L503.7505, L500.2500, L100.0100, L300.4310, L503.6005, L500.3400 ####[facility] [address] [place], [place], [id number] Lactic Acidon 08-26-2024 Lactate [Moles/Vol] 1.5 mmol/L Normal 0.0-2.0 [facility] Comment on above: Order Comment: Y Performed By: #### L 300.3900, L503.7505, L500.2500, L100.0100, L300.4310, L503.6005, L500.3400 ####[facility] [address] [place], [address] Lactic acid measurementOrder ed By: Jeison Abrams on 08-26-2024 Lactic acid measurement 1.5 mmol/L 0.0-2.0 [facility] Liver Profileon 08-26-2024 Albumin [Mass/Vol] 3.6 g/dL Normal 3.5-5.0 [facility] Comment on above: Performed By: #### L 300.3900, L503.7505, L500.2500, L100.0100, L300.4310, L503.6005, L500.3400 ####[facility] [address] [place], [place], [id number] ALK PHOS 134 U/L High 35-104 [facility] Comment on above: Performed By: #### L 300.3900, L503.7505, L500.2500, L100.0100, L300.4310, L503.6005, L500.3400 ####[facility] [address] [place], [place], [id number] ALT [Catalytic activity/Vol] 14 U/L Normal <=34 [facility] Comment on above: Performed By: #### L 300.3900, L503.7505, L500.2500, L100.0100, L300.4310, L503.6005, L500.3400 ####[facility] [address] [place], [place], [id number] AST [Catalytic activity/Vol] 27 U/L Normal <=31 [facility] Comment on above: Result Comment: Hemo lysis present, Results??could be affected.?? Performed By: #### L 300.3900, L503.7505, L500.2500, L100.0100, L300.4310, L503.6005, L500.3400 ####[facility] [address] [place], [place], [id number] Bilirubin [Mass/Vol] 0.52 mg/dL Normal 0.00-1.30 [facility] Comment on above: Performed By: #### L 300.3900, L503.7505, L500.2500, L100.0100, L300.4310, L503.6005, L500.3400 ####[facility] [address] [place], [address] Bilirubin.direct [Mass/Vol] 0.08 mg/dL Normal 0.00-0.30 [facility] Comment on above: Result Comment: Hemo lysis present, Results??could be affected.?? Performed By: #### L 300.3900, L503.7505, L500.2500, L100.0100, L300.4310, L503.6005, L500.3400 ####[facility] [address] [place], [address] Globulin (S) [Mass/Vol] 3.4 g/dL Normal 2.2-4.2 [facility] Comment on above: Performed By: #### L 300.3900, L503.7505, L500.2500, L100.0100, L300.4310, L503.6005, L500.3400 ####[facility] [address], [address] T PROT 7.0 g/dL Normal 5.9-8.4 [facility] Comment on above: Performed By: #### L 300.3900, L503.7505, L500.2500, L100.0100, L300.4310, L503.6005, L500.3400 ####[facility] [address] [place], [address] Lymphocytes Auto (Unsp spec) [#/Vol]Ordered By: Jeison bArams on 08-26-2024 Absolute lymphocyte count 1.57 X10^3/uL 0.83-4.51 [facility] Lymphocytes/100 WBC Auto (Un sp spec)Ordered By: Jeison Abrams on 08-26-2024 Automated lymphocyte count as percentage of total leukocytes 20.9 % 19-41 [facility] MCV (RBC) [Entitic vol]Order ed By: Jeisno Abrams on 08-26-2024 MCV (mean corpuscular volume) determination 82.4 fL 81-99 [facility] Mean corpuscular hemoglobin (MCH) determinationOrdered By: Jeison Abrams on 08-26-2024 Mean corpuscular hemoglobin (MCH) determination 27.8 pg 27.0-32.0 [facility] Mean corpuscular hemoglobin concentration (MCHC) determinationOrdered By: Jeison Abrams on 08-26-2024 Mean corpuscular hemoglobin concentration (MCHC) determination 33.7 g/dL 32-36 [facility] Mean platelet volume determi nationOrdered By: Jeison Abrams on 08-26-2024 Mean platelet volume determination 9.1 fl 6.2-12.0 [facility] Monocyte percentageOrdered B y: Jeison Abrams on 08-26-2024 Monocyte percentage 5.7 % 0-10 [facility] Neutrophil percentageOrdered By: Jeison Abrams on 08-26-2024 Neutrophil percentage 69.6 % 47-70 [facility] No Panel InformationOrdered By: Jeison Abrams on 08-26-2024 27 U/L <32 [facility] 1489 pg/mL High <900 [facility] Nucleated red blood cell per centageOrdered By: Jeison Abrams on 08-26-2024 Nucleated red blood cell percentage 0 % 0-5 [facility] Partial Thromboplast Timeon 08-26-2024 aPTT Coag (Bld) [Time] 26.5 s Normal 24.1-36.2 [facility] Comment on above: Performed By: #### L 300.4310, L300.3900 ####[facility] [address] [place], [address] aPTT Coag (Bld) [Time] 26.8 s Normal 24.1-36.2 [facility] Comment on above: Performed By: #### L 300.3900, L503.7505, L500.2500, L100.0100, L300.4310, L503.6005, L500.3400 ####[facility] [address] [place], [address] Platelet countOrdered By: Tristan Abrams on 08-26-2024 Platelet count 225 K/mm3 150-450 [facility] Potassium (Unsp spec) [Mass/ Vol]Ordered By: Jeison Abrams on 08-26-2024 Potassium measurement (mass/volume) 3.4 mmol/L 3.3-5.1 [facility] Prothrombin Time w/INRon INR Coag (PPP) [Relative time] 1.0 {INR} Normal [facility] Comment on above: Performed By: #### L 300.4310, L300.3900 ####[facility] [address] [place], [address] PT Coag (PPP) [Time] 12.8 s Normal 11.7-14.9 [facility] Comment on above: Performed By: #### L 300.4310, L300.3900 ####[facility] [address] [place], [address] INR Coag (PPP) [Relative time] 0.9 {INR} Normal [facility] Comment on above: Performed By: #### L 300.3900, L503.7505, L500.2500, L100.0100, L300.4310, L503.6005, L500.3400 ####[facility] [address] [place], [address] PT Coag (PPP) [Time] 12.3 s Normal 11.7-14.9 [facility] Comment on above: Performed By: #### L 300.3900, L503.7505, L500.2500, L100.0100, L300.4310, L503.6005, L500.3400 ####[facility] [address] [place], [address] Prothrombin timeOrdered By: Vaughn Daugherty on 08-26-2024 Prothrombin time 12.8 SECONDS 11.7-14.9 [facility] RBC Auto (Bld) [#/Vol]Ordere d By: Jeison Abrams on 08-26-2024 Automated blood erythrocyte count 4.93 M/mm3 4.2-5.4 [facility] Serum globulin measurementOr dered By: Jeison Abrams on 08-26-2024 Serum globulin measurement 3.4 g/dL 2.2-4.2 [facility] Sodium levelOrdered By: Sj Abrams on 08-26-2024 Sodium level 135 mmol/L 133-145 [facility] Total proteinOrdered By: Gualberto Abrams on 08-26-2024 Total protein 7.0 g/dL 5.9-8.4 [facility] Urea nitrogen [Mass/Vol]Orde red By: Jeison Abrams on 08-26-2024 Serum or plasma urea nitrogen measurement (mass/volume) 10 mg/dL 4-19 [facility] Venous Duplex US, Unilateral on 08-26-2024 Venous Duplex US, Unilateral Normal [facility] Venous duplex ultrasound rep ortOrdered By: Riccardo Ng on 08-26-2024 US Vein [facility] Work Phone: White blood cell (WBC) count Ordered By: Jeison Abrams on 08-26-2024 White blood cell (WBC) count 7.5 K/mm3 4.4-11.0 [facility] aPTT Coag (PPP) [Time]Ordere d By: Vaughn Daugherty on 08-26-2024 Activated partial thromboplastin time (aPTT) in platelet poor plasma by coagulation a 26.5 Seconds 24.1-36.2 [facility] Urine Cultureon 08-04-2024 URC Normal [facility] Comment on above: Performed By: #### M 100.4228 ####[facility] [address] [place], [address] ALP [Catalytic activity/Vol] Ordered By: Riccardo Hillman on 08-01-2024 Serum or plasma alkaline phosphatase measurement 162 U/L High 35-104 [facility] ALT [Catalytic activity/Vol] Ordered By: Riccardo Hillman on 08-01-2024 Serum or plasma alanine aminotransferase (ALT) measurement 12 U/L <35 [facility] Abdomen/Pelvis W IV Cont ONL Yon 08-01-2024 Abdomen/Pelvis W IV Cont ONLY Normal [facility] Absolute neutrophil countOrd ered By: Riccardo Hillman on 08-01-2024 Absolute neutrophil count 11.1 X10^3/uL High 2.0-7.7 [facility] Acetone Serumon 08-01-2024 ACETONE SERUM Negative Normal NEG [facility] Comment on above: Performed By: #### L 501.6900 ####[facility] [address] [place], [address] Acetone [Mass/Vol]Ordered By : Riccardo Hillman on 08-01-2024 Serum acetone measurement Negative NEG [facility] Albumin [Mass/Vol]Ordered By : Riccardo Hillman on 08-01-2024 Serum or plasma albumin measurement (mass/volume) 4.2 g/dL 3.5-5.0 [facility] Albumin/Globulin [Mass ratio ]Ordered By: Riccardo Hillman on 08-01-2024 Serum or plasma albumin/globulin mass ratio 1.0 RATIO 0.9-2.4 [facility] Anion gap [Moles/Vol]Ordered By: Riccardo Hillman on 08-01-2024 Serum or plasma anion gap determination (moles/volume) 17 High 5-15 [facility] BUN/creatinine ratioOrdered By: Riccardo Hillman on 08-01-2024 BUN/creatinine ratio 11.8 RATIO 10-20 [facility] Bacteria LM.HPF (Urine sed) [#/Area]Ordered By: Riccardo Hillman on 08-01-2024 Urine sediment bacteria count by microscopy (number/high power field) 4+ /hpf None Seen [facility] Basophil percentageOrdered B y: Riccardo Hillman on 08-01-2024 Basophil percentage 0.5 % 0-1 [facility] Bedside Glucoseon 08-01-2024 FINGERSTICK GLU 225 mg/dL High 74-106 [facility] Comment on above: Result Comment: TALIA CHAMBERS OF PATIENT CARE PER NURSING PROTOCOL Performed By: #### L 501.080 ####[facility] [address] [place], [address] Bilirubin, totalOrdered By: Riccardo Hillman on 08-01-2024 Bilirubin, total 1.23 mg/dL 0.00-1.30 [facility] CBC W/Diff, Automatedon 07-06 Absolute Lymph 1.55 X10 3/uL Normal 0.83-4.51 [facility] Comment on above: Performed By: #### L 501.2450, L500.4050, L100.0100 ####[facility] [address] [place], [address] Absolute Neut 11.1 X10 3/uL High 2.0-7.7 [facility] Comment on above: Performed By: #### L 501.2450, L500.4050, L100.0100 ####[facility] [address] [place], [address] Basophils/100 WBC (Bld) 0.5 % Normal 0-1 [facility] Comment on above: Performed By: #### L 501.2450, L500.4050, L100.0100 ####[facility] [address] [place], [address] Eosinophils/100 WBC (Bld) 0.2 % Normal 0-5 [facility] Comment on above: Performed By: #### L 501.2450, L500.4050, L100.0100 ####[facility] [address] [place], [address] Erythrocyte distribution width (RBC) [Ratio] 14.1 % Normal 11.6-14.6 [facility] Comment on above: Performed By: #### L 501.2450, L500.4050, L100.0100 ####[facility] [address] [place], [address] Hematocrit (Bld) [Volume fraction] 40.8 % Normal 37-47 [facility] Comment on above: Performed By: #### L 501.2450, L500.4050, L100.0100 ####[facility] [address] [place], [address] Hemoglobin (Bld) [Mass/Vol] 13.6 g/dL Normal 12.0-15.0 [facility] Comment on above: Performed By: #### L 501.2450, L500.4050, L100.0100 ####[facility] [address] [place], [address] IG% 0.300 Normal 0.0-0.9 [facility] Comment on above: Result Comment: IG% - Immature Granulocytes (promyelocytes, myelocytes andmetamyelocytes) > 1% indicates that a LEFT SHIFT is Present. Performed By: #### L 501.2450, L500.4050, L100.0100 ####[facility] [address] [place], [address] Lymphocytes/100 WBC (Bld) 11.7 % Low 19-41 [facility] Comment on above: Performed By: #### L 501.2450, L500.4050, L100.0100 ####[facility] [address] [place], [address] MCH (RBC) [Entitic mass] 27.7 pg Normal 27.0-32.0 [facility] Comment on above: Performed By: #### L 501.2450, L500.4050, L100.0100 ####[facility] [address] [place], [address] MCHC (RBC) [Mass/Vol] 33.3 g/dL Normal 32-36 [facility] Comment on above: Performed By: #### L 501.2450, L500.4050, L100.0100 ####[facility] [address] [place], [address] MCV (RBC) [Entitic vol] 83.1 fL Normal 81-99 [facility] Comment on above: Performed By: #### L 501.2450, L500.4050, L100.0100 ####[facility] [address] [place], [address] Monocytes/100 WBC (Bld) 3.4 % Normal 0-10 [facility] Comment on above: Performed By: #### L 501.2450, L500.4050, L100.0100 ####[facility] [address] [place], [address] Neutrophils/100 WBC (Bld) 83.9 % High 47-70 [facility] Comment on above: Performed By: #### L 501.2450, L500.4050, L100.0100 ####[facility] [address] [place], [address] Nucleated RBC (Bld) [#/Vol] 0 10*3/uL Normal 0-5 [facility] Comment on above: Performed By: #### L 501.2450, L500.4050, L100.0100 ####[facility] [address] [place], [address] Platelet mean volume (Bld) [Entitic vol] 9.9 fL Normal 6.2-12.0 [facility] Comment on above: Performed By: #### L 501.2450, L500.4050, L100.0100 ####[facility] [address] [place], [address] Platelets (Bld) [#/Vol] 338 10*3/uL Normal 150-450 [facility] Comment on above: Performed By: #### L 501.2450, L500.4050, L100.0100 ####[facility] [address] [place], [address] RBC (Bld) [#/Vol] 4.91 10*6/uL Normal 4.2-5.4 [facility] Comment on above: Performed By: #### L 501.2450, L500.4050, L100.0100 ####[facility] [address] [place], [address] RDW SD 42.2 fl Normal 35.1-43.9 [facility] Comment on above: Performed By: #### L 501.2450, L500.4050, L100.0100 ####[facility] [address] [place], [address] WBC (Bld) [#/Vol] 13.3 10*3/uL High 4.4-11.0 [facility] Comment on above: Performed By: #### L 501.2450, L500.4050, L100.0100 ####[facility] [address] [place], [address] Calcium [Mass/Vol]Ordered By : Riccardo Hillman on 08-01-2024 Serum or plasma calcium measurement (mass/volume) 9.8 mg/dL 7.6-11.0 [facility] Carbon dioxide measurementOr dered By: Riccardo Hillman on 08-01-2024 Carbon dioxide measurement 22.7 mmol/L 22.0-29.0 [facility] Chloride measurementOrdered By: Riccardo Hillman on 08-01-2024 Chloride measurement 93 mmol/L Low 96-108 [facility] Clarity (U)Ordered By: Riccardo Hillman on 08-01-2024 Urine clarity Cloudy Clear [facility] Color (U)Ordered By: Riccardo latham on 08-01-2024 Urine color determination Yellow Yellow [facility] Comprehensive Metabolic Prof ilon 08-01-2024 Albumin [Mass/Vol] 4.2 g/dL Normal 3.5-5.0 [facility] Comment on above: Performed By: #### L 501.2450, L500.4050, L100.0100 ####[facility] [address] [place], [address] Albumin/Globulin [Mass ratio] 1.0 {ratio} Normal 0.9-2.4 [facility] Comment on above: Performed By: #### L 501.2450, L500.4050, L100.0100 ####[facility] [address] [place], [address] ALK PHOS 162 U/L High 35-104 [facility] Comment on above: Performed By: #### L 501.2450, L500.4050, L100.0100 ####[facility] [address] [place], [address] ALT [Catalytic activity/Vol] 12 U/L Normal <=34 [facility] Comment on above: Performed By: #### L 501.2450, L500.4050, L100.0100 ####[facility] [address] [place], [address] Anion gap [Moles/Vol] 17 mmol/L High 5-15 [facility] Comment on above: Performed By: #### L 501.2450, L500.4050, L100.0100 ####[facility] [address] [place], [address] AST [Catalytic activity/Vol] 24 U/L Normal <=31 [facility] Comment on above: Performed By: #### L 501.2450, L500.4050, L100.0100 ####[facility] [address] [place], [address] Bilirubin [Mass/Vol] 1.23 mg/dL Normal 0.00-1.30 [facility] Comment on above: Performed By: #### L 501.2450, L500.4050, L100.0100 ####[facility] [address] [place], [address] BUN/CRE 11.8 RATIO Normal 10-20 [facility] Comment on above: Performed By: #### L 501.2450, L500.4050, L100.0100 ####[facility] [address] [place], [address] Calcium [Mass/Vol] 9.8 mg/dL Normal 7.6-11.0 [facility] Comment on above: Performed By: #### L 501.2450, L500.4050, L100.0100 ####[facility] [address] [place], [address] Chloride [Moles/Vol] 93 mmol/L Low 96-108 [facility] Comment on above: Performed By: #### L 501.2450, L500.4050, L100.0100 ####[facility] [address] [place], [address] CO2 [Moles/Vol] 22.7 mmol/L Normal 22.0-29.0 [facility] Comment on above: Performed By: #### L 501.2450, L500.4050, L100.0100 ####[facility] [address] [place], [address] Creatinine [Mass/Vol] 0.79 mg/dL Normal 0.70-1.20 [facility] Comment on above: Performed By: #### L 501.2450, L500.4050, L100.0100 ####[facility] [address] [place], [address] ECRCL 91.16 ml/min Normal [facility] Comment on above: Performed By: #### L 501.2450, L500.4050, L100.0100 ####[facility] [address] [place], [address] GFR/1.73 sq M.predicted among non-blacks MDRD (S/P/Bld) [Vol rate/Area] 90 mL/min/{1.73_m2} Normal >60 [facility] Comment on above: Result Comment: mL/m in/1.73m2 CKD-EPI Creatinine Equation (2020) Performed By: #### L 501.2450, L500.4050, L100.0100 ####[facility] [address] [place], [address] Globulin (S) [Mass/Vol] 4.0 g/dL Normal 2.2-4.2 [facility] Comment on above: Performed By: #### L 501.2450, L500.4050, L100.0100 ####[facility] [address] [place], [address] Glucose [Mass/Vol] 410 mg/dL High 70-99 [facility] Comment on above: Performed By: #### L 501.2450, L500.4050, L100.0100 ####[facility] [address] [place], [address] Potassium [Moles/Vol] 3.5 mmol/L Normal 3.3-5.1 [facility] Comment on above: Performed By: #### L 501.2450, L500.4050, L100.0100 ####[facility] [address] [place], [address] Sodium [Moles/Vol] 132 mmol/L Low 133-145 [facility] Comment on above: Performed By: #### L 501.2450, L500.4050, L100.0100 ####[facility] [address] [place], [address] T PROT 8.1 g/dL Normal 5.9-8.4 [facility] Comment on above: Performed By: #### L 501.2450, L500.4050, L100.0100 ####[facility] [address] [place], [address] Urea nitrogen [Mass/Vol] 9 mg/dL Normal 4-19 [facility] Comment on above: Performed By: #### L 501.2450, L500.4050, L100.0100 ####[facility] [address] [place], [address] Creatinine [Mass/Vol]Ordered By: Riccardo Hillman on 08-01-2024 Serum creatinine measurement (mass/volume) 0.79 mg/dL 0.70-1.20 [facility] Emergency Department Summary on 08-01-2024 Emergency Department Summary Normal [facility] Eosinophil percentageOrdered By: Riccardo Hillman on 08-01-2024 Eosinophil percentage 0.2 % 0-5 [facility] Erythrocyte distribution wid th (RBC) [Ratio]Ordered By: Riccardo Hillman on 08-01-2024 Erythrocyte distribution width ratio 14.1 % 11.6-14.6 [facility] [facility] Erythrocyte distribution wid th standard deviationOrdered By: Riccardo Hillman on 08-01-2024 Erythrocyte distribution width standard deviation 42.2 fl 35.1-43.9 [facility] Estimation of creatinine sylvain aranceOrdered By: Riccardo Hillman on 08-01-2024 Estimation of creatinine clearance 91.16 ml/min [facility] GFR/1.73 sq M.predicted estephanie g non-blacks MDRD (S/P/Bld) [Vol rate/Area]Ordered By: Riccardo Hillman on 08-01-2024 Glomerular filtration rate (GFR) estimation/1.73 sq m using serum, plasma, or whole b 90 >60 [facility] Glucose Ql (U)Ordered By: Bertram Hillman on 08-01-2024 Urine glucose detection 1000 mg/dl High Normal [facility] Glucose [Mass/Vol]Ordered By : Riccardo Hillman on 08-01-2024 Serum glucose measurement (mass/volume) 410 mg/dL High 70-99 [facility] Glucose measurement at bedsi deOrdered By: Riccardo Hillman on 08-01-2024 Glucose measurement at bedside 225 mg/dL High 74-106 [facility] Hematocrit Auto (Bld) [Volum e fraction]Ordered By: Riccardo Hillman on 08-01-2024 Automated blood hematocrit (percentage) 40.8 % 37-47 [facility] Hemoglobin measurementOrdere d By: Riccardo Hillman on 08-01-2024 Hemoglobin measurement 13.6 g/dL 12.0-15.0 [facility] Immature granulocytes/100 WB C Auto (Bld)Ordered By: Riccardo Hillman on 08-01-2024 Automated immature granulocyte percentage 0.300 % 0.0-0.9 [facility] Leukocyte esterase Test stri p Ql (U)Ordered By: Riccardo Hillman on 08-01-2024 Urine leukocyte esterase detection by dipstick 500 /ul High Negative [facility] Lipaseon 08-01-2024 Lipase [Catalytic activity/Vol] 17 U/L Normal 13-75 [facility] Comment on above: Result Comment: Gege edgar note:LIPASE revised reference range effective 22.New Lipase methodology. Expected to produce lower valuesthan the previous assay method.NEW Reference Range: 13 - 75 U/L Performed By: #### L 501.2450, L500.4050, L100.0100 ####[facility] [address] [place], [address] Lipase measurementOrdered By : Riccardo Hillman on 08-01-2024 Lipase measurement 17 U/L 13-75 [facility] Lymphocytes Auto (Unsp spec) [#/Vol]Ordered By: Riccardo Hillman on 08-01-2024 Absolute lymphocyte count 1.55 X10^3/uL 0.83-4.51 [facility] Lymphocytes/100 WBC Auto (Un sp spec)Ordered By: Riccardo Hillman on 08-01-2024 Automated lymphocyte count as percentage of total leukocytes 11.7 % Low 19-41 [facility] MCV (RBC) [Entitic vol]Order ed By: Riccardo Hillman on 08-01-2024 MCV (mean corpuscular volume) determination 83.1 fL 81-99 [facility] Mean corpuscular hemoglobin (MCH) determinationOrdered By: Riccardo Hillman on 08-01-2024 Mean corpuscular hemoglobin (MCH) determination 27.7 pg 27.0-32.0 [facility] Mean corpuscular hemoglobin concentration (MCHC) determinationOrdered By: Riccardo Hillman on 08-01-2024 Mean corpuscular hemoglobin concentration (MCHC) determination 33.3 g/dL 32-36 [facility] Mean platelet volume determi nationOrdered By: Riccardo Hillman on 08-01-2024 Mean platelet volume determination 9.9 fl 6.2-12.0 [facility] Microscopic analysis of urin e for red blood cells (RBC)Ordered By: Riccardo Hillman on 08-01-2024 Microscopic analysis of urine for red blood cells (RBC) 0-5 SEEN /hpf 5-10 [facility] Monocyte percentageOrdered B y: Riccardo Hillman on 08-01-2024 Monocyte percentage 3.4 % 0-10 [facility] Mucus LM Ql (Urine sed)Order ed By: Riccardo Hillman on 08-01-2024 Mucus detection in urine sediment by light microscopy 0 SEEN /hpf [facility] Neutrophil percentageOrdered By: Riccardo Hillman on 08-01-2024 Neutrophil percentage 83.9 % High 47-70 [facility] No Panel InformationOrdered By: Riccardo Hillman on 08-01-2024 24 U/L <32 [facility] Nucleated red blood cell per centageOrdered By: Riccardo Hillman on 08-01-2024 Nucleated red blood cell percentage 0 % 0-5 [facility] Platelet countOrdered By: Bertram Hillman on 08-01-2024 Platelet count 338 K/mm3 150-450 [facility] Potassium [Moles/Vol]Ordered By: Riccardo Hillman on 08-01-2024 Serum or plasma potassium measurement 3.5 mmol/L 3.3-5.1 [facility] Protein Test strip Ql (U)Ord ered By: Riccardo Hillman on 08-01-2024 Urine protein assay by test strip, semi-quantitative 100 mg/dl High Negative [facility] RBC Auto (Bld) [#/Vol]Ordere d By: Riccardo Hillman on 08-01-2024 Automated blood erythrocyte count 4.91 M/mm3 4.2-5.4 [facility] Serum globulin measurementOr dered By: Riccardo Hillman on 08-01-2024 Serum globulin measurement 4.0 g/dL 2.2-4.2 [facility] Sodium [Moles/Vol]Ordered By : Riccardo Hillman on 08-01-2024 Serum or plasma sodium measurement (moles/volume) 132 mmol/L Low 133-145 [facility] Specific gravity (U) [Rel de nsity]Ordered By: Riccardo Hillman on 08-01-2024 Urine specific gravity measurement 1.010 1.002-1.03 0 [facility] Total proteinOrdered By: Guerita Hillman on 08-01-2024 Total protein 8.1 g/dL 5.9-8.4 [facility] Urea nitrogen [Mass/Vol]Orde red By: Riccardo Hillman on 08-01-2024 Serum or plasma urea nitrogen measurement (mass/volume) 9 mg/dL 4-19 [facility] Urinalysis, Completeon 08-01 BACTERIA 4+ /hpf Normal None Seen [facility] Comment on above: Order Comment: LUISA CTOR TO SPECIFY Performed By: #### L 400.0001 ####[facility] [address] [place], [place], [id number] EPI,SQUAMOUS 0-5 SEEN Normal 5-10 [facility] Comment on above: Order Comment: LUISA CTOR TO SPECIFY Performed By: #### L 400.0001 ####[facility] [address] [place], [address] RBC 0-5 SEEN Normal 0-5 [facility] Comment on above: Order Comment: LUISA CTOR TO SPECIFY Performed By: #### L 400.0001 ####[facility] [address] [place], [address] YEAST 1+ /hpf Normal None Seen [facility] Comment on above: Order Comment: LUISA CTOR TO SPECIFY Performed By: #### L 400.0001 ####[facility] [address] [place], [address] WBC 50-100 SEEN Normal 0-5 [facility] Comment on above: Order Comment: LUISA CTOR TO SPECIFY Performed By: #### L 400.0001 ####[facility] [address] [place], [place], [phone] Mucus Ql (Urine sed) 0 SEEN Normal [facility] Comment on above: Order Comment: LUIAS CTOR TO SPECIFY Performed By: #### L 400.0001 ####[facility] [address] [place], [place], [phone] Urine blood detectionOrdered By: Riccardo Hillman on 08-01-2024 Urine blood detection 50 /ul High Negative [facility] Urine cultureOrdered By: Guerita Hillman on 08-01-2024 Urine culture ESBL Escherichia coli Abnormal [facility] Urine total bilirubin detect ion by test stripOrdered By: Riccardo Hillman on 08-01-2024 Urine total bilirubin detection by test strip Negative Negative [facility] Urobilinogen Ql (U)Ordered B y: Riccardo Hillman on 08-01-2024 Urine urobilinogen measurement Normal mg/dl Normal [facility] White blood cell (WBC) count Ordered By: Riccardo Hillman on 08-01-2024 White blood cell (WBC) count 13.3 K/mm3 High 4.4-11.0 [facility] White blood cell countOrdere d By: Riccardo Hillman on 08-01-2024 White blood cell count 50-100 SEEN /hpf 0-5 [facility] Yeast LM.HPF (Urine sed) [#/ Area]Ordered By: Riccardo Hillman on 08-01-2024 Urine sediment yeast count by microscopy (number/high powered field) 1+ /hpf None Seen [facility] pH (U)Ordered By: Riccardo rondon on 08-01-2024 Urine pH 6.5 5.0 - 8.0 [facility] Absolute neutrophil countOrd ered By: Nicole Trujillo on 07-03-2024 Absolute neutrophil count 2.6 X10^3/uL 2.0-7.7 [facility] Basic Metabolic Profile (BMP )on 07-03-2024 BUN/CRE 24.4 RATIO High 10-20 [facility] Comment on above: Performed By: #### L 500.2500, L100.0100 ####[facility] [address] [place], [address] CA,Total 8.6 mg/dL Normal 8.5-10.1 [facility] Comment on above: Performed By: #### L 500.2500, L100.0100 ####[facility] [address] [place], [address] Chloride [Moles/Vol] 105 mmol/L Normal 98-107 [facility] Comment on above: Performed By: #### L 500.2500, L100.0100 ####[facility] [address] [place], [address] CO2 [Moles/Vol] 27.0 mmol/L Normal 21.0-32.0 [facility] Comment on above: Performed By: #### L 500.2500, L100.0100 ####[facility] [address] [place], [address] Creatinine [Mass/Vol] 0.61 mg/dL Normal 0.55-1.02 [facility] Comment on above: Result Comment: The validity of the calculated GFR GFRAA in patients over70 years has not been determined. Clinical correlation isessential. Performed By: #### L 500.2500, L100.0100 ####[facility] [address] [place], [address] ECRCL 119.69 ml/min Normal [facility] Comment on above: Performed By: #### L 500.2500, L100.0100 ####[facility] [address] [place], [address] EST GFR - AA 131 mL/min Normal >60 [facility] Comment on above: Result Comment: Afri can Swiss GFR Calc Performed By: #### L 500.2500, L100.0100 ####[facility] [address] [place], [address] GAP 5 Normal 5-15 [facility] Comment on above: Performed By: #### L 500.2500, L100.0100 ####[facility] [address] [place], [address] GFR/1.73 sq M.predicted among non-blacks MDRD (S/P/Bld) [Vol rate/Area] 108 mL/min/{1.73_m2} Normal >60 [facility] Comment on above: Result Comment: Non- GFR Calc Performed By: #### L 500.2500, L100.0100 ####[facility] [address] [place], [address] Glucose [Mass/Vol] 163 mg/dL High 74-106 [facility] Comment on above: Result Comment: Fast ing Glucose result greater than or equal to 126 mg/dLsuggests DIABETES MELLITUS per A.D.A. criteria. Performed By: #### L 500.2500, L100.0100 ####[facility] [address] [place], [address] Potassium [Moles/Vol] 3.4 mmol/L Low 3.5-5.1 [facility] Comment on above: Performed By: #### L 500.2500, L100.0100 ####[facility] [address] [place], [address] Sodium [Moles/Vol] 137 mmol/L Normal 136-145 [facility] Comment on above: Performed By: #### L 500.2500, L100.0100 ####[facility] [address] [place], [address] Urea nitrogen [Mass/Vol] 15 mg/dL Normal 7-18 [facility] Comment on above: Performed By: #### L 500.2500, L100.0100 ####[facility] [address] [place], [address] Basophil percentageOrdered B y: Nicole Trujillo on 07-03-2024 Basophil percentage 0.4 % 0-1 [facility] Bedside Glucoseon 07-03-2024 FINGERSTICK GLU 180 mg/dL High 74-106 [facility] Comment on above: Result Comment: TALIA GEMENT OF PATIENT CARE PER NURSING PROTOCOL Performed By: #### L 501.080 ####[facility] [address] [place], [address] FINGERSTICK GLU 137 mg/dL High 74-106 [facility] Comment on above: Result Comment: TALIA GEMENT OF PATIENT CARE PER NURSING PROTOCOL Performed By: #### L 501.080 ####[facility] [address] [place], [address] Blood urea nitrogen (BUN)/cr eatinine ratioOrdered By: Nicole Trujillo on 07-03-2024 Blood urea nitrogen (BUN)/creatinine ratio 24.4 RATIO High 10-20 [facility] CBC W/Diff, Automatedon 06-06 0 Absolute Lymph 1.43 X10 3/uL Normal 0.83-4.51 [facility] Comment on above: Performed By: #### L 500.2500, L100.0100 ####[facility] [address] [place], [address] Absolute Neut 2.6 X10 3/uL Normal 2.0-7.7 [facility] Comment on above: Performed By: #### L 500.2500, L100.0100 ####[facility] [address] [place], [address] Basophils/100 WBC (Bld) 0.4 % Normal 0-1 [facility] Comment on above: Performed By: #### L 500.2500, L100.0100 ####[facility] [address] [place], [address] Eosinophils/100 WBC (Bld) 0.7 % Normal 0-5 [facility] Comment on above: Performed By: #### L 500.2500, L100.0100 ####[facility] [address] [place], [address] Erythrocyte distribution width (RBC) [Ratio] 14.3 % Normal 11.6-14.6 [facility] Comment on above: Performed By: #### L 500.2500, L100.0100 ####[facility] [address] [place], [address] Hematocrit (Bld) [Volume fraction] 32.6 % Low 37-47 [facility] Comment on above: Performed By: #### L 500.2500, L100.0100 ####[facility] [address] [place], [address] Hemoglobin (Bld) [Mass/Vol] 10.8 g/dL Low 12.0-15.0 [facility] Comment on above: Performed By: #### L 500.2500, L100.0100 ####[facility] [address] [place], [address] IG% 0.700 Normal 0.0-0.9 [facility] Comment on above: Result Comment: IG% - Immature Granulocytes (promyelocytes, myelocytes andmetamyelocytes) > 1% indicates that a LEFT SHIFT is Present. Performed By: #### L 500.2500, L100.0100 ####[facility] [address] [place], [address] Lymphocytes/100 WBC (Bld) 32.0 % Normal 19-41 [facility] Comment on above: Performed By: #### L 500.2500, L100.0100 ####[facility] [address] [place], [address] MCH (RBC) [Entitic mass] 27.2 pg Normal 27.0-32.0 [facility] Comment on above: Performed By: #### L 500.2500, L100.0100 ####[facility] [address] [place], [address] MCHC (RBC) [Mass/Vol] 33.1 g/dL Normal 32-36 [facility] Comment on above: Performed By: #### L 500.2500, L100.0100 ####[facility] [address] [place], [address] MCV (RBC) [Entitic vol] 82.1 fL Normal 81-99 [facility] Comment on above: Performed By: #### L 500.2500, L100.0100 ####[facility] [address] [place], [address] Monocytes/100 WBC (Bld) 8.7 % Normal 0-10 [facility] Comment on above: Performed By: #### L 500.2500, L100.0100 ####[facility] [address] [place], [address] Neutrophils/100 WBC (Bld) 57.5 % Normal 47-70 [facility] Comment on above: Performed By: #### L 500.2500, L100.0100 ####[facility] [address] [place], [address] Nucleated RBC (Bld) [#/Vol] 0 10*3/uL Normal 0-5 [facility] Comment on above: Performed By: #### L 500.2500, L100.0100 ####[facility] [address] [place], [address] Platelet mean volume (Bld) [Entitic vol] 10.2 fL Normal 6.2-12.0 [facility] Comment on above: Performed By: #### L 500.2500, L100.0100 ####[facility] [address] [place], [address] Platelets (Bld) [#/Vol] 192 10*3/uL Normal 150-450 [facility] Comment on above: Performed By: #### L 500.2500, L100.0100 ####[facility] [address] [place], [address] RBC (Bld) [#/Vol] 3.97 10*6/uL Low 4.2-5.4 [facility] Comment on above: Performed By: #### L 500.2500, L100.0100 ####[facility] [address] [place], [address] RDW SD 42.9 fl Normal 35.1-43.9 [facility] Comment on above: Performed By: #### L 500.2500, L100.0100 ####[facility] [address] [place], [address] WBC (Bld) [#/Vol] 4.5 10*3/uL Normal 4.4-11.0 [facility] Comment on above: Performed By: #### L 500.2500, L100.0100 ####[facility] [address] [place], [address] Calcium [Mass/Vol]Ordered By : Nicole Trujillo on 07-03-2024 Serum or plasma calcium measurement (mass/volume) 8.6 mg/dL 8.5-10.1 [facility] Carbon dioxide measurementOr dered By: Nicole Trujillo on 07-03-2024 Carbon dioxide measurement 27.0 mmol/L 21.0-32.0 [facility] Chloride measurementOrdered By: Nicole Trujillo on 07-03-2024 Chloride measurement 105 mmol/L 98-107 [facility] Creatinine [Mass/Vol]Ordered By: Nicole Trujillo on 07-03-2024 Serum or plasma creatinine measurement (mass/volume) 0.61 mg/dL 0.55-1.02 [facility] Eosinophil percentageOrdered By: Nicole Trujillo on 07-03-2024 Eosinophil percentage 0.7 % 0-5 [facility] Erythrocyte distribution wid th (RBC) [Ratio]Ordered By: Nicole Trujillo on 07-03-2024 Erythrocyte distribution width ratio 14.3 % 11.6-14.6 [facility] Erythrocyte distribution wid th standard deviationOrdered By: Nicole Trujilol on 07-03-2024 Erythrocyte distribution width standard deviation 42.9 fl 35.1-43.9 [facility] Estimated glomerular filtrat ion rate (GFR) AmericanOrdered By: Nicole Trujillo on 07-03-2024 Estimated glomerular filtration rate (GFR) 131 mL/min >60 [facility] Estimation of creatinine sylvain aranceOrdered By: Nicole Trujillo on 07-03-2024 Estimation of creatinine clearance 119.69 ml/min [facility] Glomerular filtration rate ( GFR) estimationOrdered By: Nicole Trujillo on 07-03-2024 Glomerular filtration rate (GFR) estimation 108 mL/min >60 [facility] Glucose measurementOrdered B y: Nicole Trujillo on 07-03-2024 Glucose measurement 163 mg/dL High 74-106 [facility] Glucose measurement at bedsi deOrdered By: Nicole Trujillo on 07-03-2024 Glucose measurement at bedside 180 mg/dL High 74-106 [facility] Hematocrit Auto (Bld) [Volum e fraction]Ordered By: Nicole Trujillo on 07-03-2024 Automated blood hematocrit (percentage) 32.6 % Low 37-47 [facility] Hemoglobin measurementOrdere d By: Nicole Trujillo on 07-03-2024 Hemoglobin measurement 10.8 g/dL Low 12.0-15.0 [facility] Immature granulocytes/100 WB C Auto (Bld)Ordered By: Nicole Trujillo on 07-03-2024 Automated immature granulocyte percentage 0.700 % 0.0-0.9 [facility] Lymphocytes Auto (Unsp spec) [#/Vol]Ordered By: Nicole Trujillo on 07-03-2024 Absolute lymphocyte count 1.43 X10^3/uL 0.83-4.51 [facility] Lymphocytes/100 WBC Auto (Un sp spec)Ordered By: Nicole Trujillo on 07-03-2024 Automated lymphocyte count as percentage of total leukocytes 32.0 % 19-41 [facility] MCV (RBC) [Entitic vol]Order ed By: Nicole Trujillo on 07-03-2024 MCV (mean corpuscular volume) determination 82.1 fL 81-99 [facility] Mean corpuscular hemoglobin (MCH) determinationOrdered By: Nicole Trujillo on 07-03-2024 Mean corpuscular hemoglobin (MCH) determination 27.2 pg 27.0-32.0 [facility] Mean corpuscular hemoglobin concentration (MCHC) determinationOrdered By: Nicole Trujillo on 07-03-2024 Mean corpuscular hemoglobin concentration (MCHC) determination 33.1 g/dL 32-36 [facility] Mean platelet volume determi nationOrdered By: Nicole Trujillo on 07-03-2024 Mean platelet volume determination 10.2 fl 6.2-12.0 [facility] Monocyte percentageOrdered B y: Nicole Trujillo on 07-03-2024 Monocyte percentage 8.7 % 0-10 [facility] Neutrophil percentageOrdered By: Nicole Trujillo on 07-03-2024 Neutrophil percentage 57.5 % 47-70 [facility] Nucleated red blood cell per centageOrdered By: Nicole Trujillo on 07-03-2024 Nucleated red blood cell percentage 0 % 0-5 [facility] Platelet countOrdered By: Mary Trujillo on 07-03-2024 Platelet count 192 K/mm3 150-450 [facility] Potassium measurementOrdered By: Nicole Trujillo on 07-03-2024 Potassium measurement 3.4 mmol/L Low 3.5-5.1 [facility] RBC Auto (Bld) [#/Vol]Ordere d By: Nicole Trujillo on 07-03-2024 Automated blood erythrocyte count 3.97 M/mm3 Low 4.2-5.4 [facility] Serum anion gap measurementO rdered By: Nicole Trujillo on 07-03-2024 Serum anion gap measurement 5 5-15 [facility] Sodium levelOrdered By: Ifrah Trujillo on 07-03-2024 Sodium level 137 mmol/L 136-145 [facility] Urea nitrogen [Mass/Vol]Orde red By: Nicole Trujillo on 07-03-2024 Serum or plasma urea nitrogen measurement (mass/volume) 15 mg/dL -18 [facility] White blood cell (WBC) count Ordered By: Nicole Trujillo on 07-03-2024 White blood cell (WBC) count 4.5 K/mm3 4.4-11.0 [facility] Abdomen/Pel W ORAL Cont Only on 07-02-2024 Abdomen/Pel W ORAL Cont Only Normal [facility] Basic Metabolic Profile (BMP )on 07-02-2024 BUN/CRE 26.7 RATIO High 10-20 [facility] Comment on above: Performed By: #### L 501.5200, L100.0100, L501.2300, L500.2500 ####[facility] [address] [place], [address] CA,Total 8.3 mg/dL Low 8.5-10.1 [facility] Comment on above: Performed By: #### L 501.5200, L100.0100, L501.2300, L500.2500 ####[facility] [address] [place], [address] Chloride [Moles/Vol] 104 mmol/L Normal 98-107 [facility] Comment on above: Performed By: #### L 501.5200, L100.0100, L501.2300, L500.2500 ####[facility] [address] [place], [address] CO2 [Moles/Vol] 24.0 mmol/L Normal 21.0-32.0 [facility] Comment on above: Performed By: #### L 501.5200, L100.0100, L501.2300, L500.2500 ####[facility] [address] [place], [address] Creatinine [Mass/Vol] 0.94 mg/dL Normal 0.55-1.02 [facility] Comment on above: Result Comment: The validity of the calculated GFR GFRAA in patients over70 years has not been determined. Clinical correlation isessential. Performed By: #### L 501.5200, L100.0100, L501.2300, L500.2500 ####[facility] [address] [place], [address] ECRCL 76.61 ml/min Normal [facility] Comment on above: Performed By: #### L 501.5200, L100.0100, L501.2300, L500.2500 ####[facility] [address] [place], [address] EST GFR - AA 81 mL/min Normal >60 [facility] Comment on above: Result Comment: Afri can Swiss GFR Calc Performed By: #### L 501.5200, L100.0100, L501.2300, L500.2500 ####[facility] [address] [place], [address] GAP 8 Normal 5-15 [facility] Comment on above: Performed By: #### L 501.5200, L100.0100, L501.2300, L500.2500 ####[facility] [address] [place], [address] GFR/1.73 sq M.predicted among non-blacks MDRD (S/P/Bld) [Vol rate/Area] 67 mL/min/{1.73_m2} Normal >60 [facility] Comment on above: Result Comment: Non- GFR Calc Performed By: #### L 501.5200, L100.0100, L501.2300, L500.2500 ####[facility] [address] [place], [address] Glucose [Mass/Vol] 134 mg/dL High 74-106 [facility] Comment on above: Result Comment: Fast ing Glucose result greater than or equal to 126 mg/dLsuggests DIABETES MELLITUS per A.D.A. criteria. Performed By: #### L 501.5200, L100.0100, L501.2300, L500.2500 ####[facility] [address] [place], [address] Potassium [Moles/Vol] 3.6 mmol/L Normal 3.5-5.1 [facility] Comment on above: Performed By: #### L 501.5200, L100.0100, L501.2300, L500.2500 ####[facility] [address] [place], [address] Sodium [Moles/Vol] 137 mmol/L Normal 136-145 [facility] Comment on above: Performed By: #### L 501.5200, L100.0100, L501.2300, L500.2500 ####[facility] [address] [place], [address] Urea nitrogen [Mass/Vol] 25 mg/dL High 7-18 [facility] Comment on above: Performed By: #### L 501.5200, L100.0100, L501.2300, L500.2500 ####[facility] [address] [place], [address] Bedside Glucoseon 07-02-2024 FINGERSTICK GLU 159 mg/dL High 74-106 [facility] Comment on above: Result Comment: TALIA GEMENT OF PATIENT CARE PER NURSING PROTOCOL Performed By: #### L 501.080 ####[facility] [address] [place], [address] FINGERSTICK GLU 190 mg/dL High 74-106 [facility] Comment on above: Result Comment: TALIA GEMENT OF PATIENT CARE PER NURSING PROTOCOL Performed By: #### L 501.080 ####[facility] [address] [place], [address] FINGERSTICK GLU 155 mg/dL High 74-106 [facility] Comment on above: Result Comment: TALIA GEMENT OF PATIENT CARE PER NURSING PROTOCOL Performed By: #### L 501.080 ####[facility] [address] [place], [address] FINGERSTICK GLU 128 mg/dL High 74-106 [facility] Comment on above: Result Comment: TALIA GEMENT OF PATIENT CARE PER NURSING PROTOCOL Performed By: #### L 501.080 ####[facility] [address] [place], [address] FINGERSTICK GLU 215 mg/dL High 74-106 [facility] Comment on above: Result Comment: TALIA GEMENT OF PATIENT CARE PER NURSING PROTOCOL Performed By: #### L 501.080 ####[facility] [address] [place], [address] CBC W/Diff, Automatedon 06-05 Absolute Lymph 2.11 X10 3/uL Normal 0.83-4.51 [facility] Comment on above: Performed By: #### L 501.5200, L100.0100, L501.2300, L500.2500 ####[facility] [address] [place], [address] Absolute Neut 2.4 X10 3/uL Normal 2.0-7.7 [facility] Comment on above: Performed By: #### L 501.5200, L100.0100, L501.2300, L500.2500 ####[facility] [address] [place], [address] Basophils/100 WBC (Bld) 0.4 % Normal 0-1 [facility] Comment on above: Performed By: #### L 501.5200, L100.0100, L501.2300, L500.2500 ####[facility] [address] [place], [address] Eosinophils/100 WBC (Bld) 0.6 % Normal 0-5 [facility] Comment on above: Performed By: #### L 501.5200, L100.0100, L501.2300, L500.2500 ####[facility] [address] [place], [address] Erythrocyte distribution width (RBC) [Ratio] 14.6 % Normal 11.6-14.6 [facility] Comment on above: Performed By: #### L 501.5200, L100.0100, L501.2300, L500.2500 ####[facility] [address] [place], [address] Hematocrit (Bld) [Volume fraction] 29.5 % Low 37-47 [facility] Comment on above: Performed By: #### L 501.5200, L100.0100, L501.2300, L500.2500 ####[facility] [address] [place], [address] Hemoglobin (Bld) [Mass/Vol] 9.5 g/dL Low 12.0-15.0 [facility] Comment on above: Performed By: #### L 501.5200, L100.0100, L501.2300, L500.2500 ####[facility] [address] [place], [address] IG% 0.400 Normal 0.0-0.9 [facility] Comment on above: Result Comment: IG% - Immature Granulocytes (promyelocytes, myelocytes andmetamyelocytes) > 1% indicates that a LEFT SHIFT is Present. Performed By: #### L 501.5200, L100.0100, L501.2300, L500.2500 ####[facility] [address] [place], [address] Lymphocytes/100 WBC (Bld) 42.8 % High 19-41 [facility] Comment on above: Performed By: #### L 501.5200, L100.0100, L501.2300, L500.2500 ####[facility] [address] [place], [address] MCH (RBC) [Entitic mass] 27.1 pg Normal 27.0-32.0 [facility] Comment on above: Performed By: #### L 501.5200, L100.0100, L501.2300, L500.2500 ####[facility] [address] [place], [address] MCHC (RBC) [Mass/Vol] 32.2 g/dL Normal 32-36 [facility] Comment on above: Performed By: #### L 501.5200, L100.0100, L501.2300, L500.2500 ####[facility] [address] [place], [address] MCV (RBC) [Entitic vol] 84.0 fL Normal 81-99 [facility] Comment on above: Performed By: #### L 501.5200, L100.0100, L501.2300, L500.2500 ####[facility] [address] [place], [address] Monocytes/100 WBC (Bld) 8.1 % Normal 0-10 [facility] Comment on above: Performed By: #### L 501.5200, L100.0100, L501.2300, L500.2500 ####[facility] [address] [place], [address] Neutrophils/100 WBC (Bld) 47.7 % Normal 47-70 [facility] Comment on above: Performed By: #### L 501.5200, L100.0100, L501.2300, L500.2500 ####[facility] [address] [place], [address] Nucleated RBC (Bld) [#/Vol] 0 10*3/uL Normal 0-5 [facility] Comment on above: Performed By: #### L 501.5200, L100.0100, L501.2300, L500.2500 ####[facility] [address] [place], [address] Platelet mean volume (Bld) [Entitic vol] 9.9 fL Normal 6.2-12.0 [facility] Comment on above: Performed By: #### L 501.5200, L100.0100, L501.2300, L500.2500 ####[facility] [address] [place], [address] Platelets (Bld) [#/Vol] 174 10*3/uL Normal 150-450 [facility] Comment on above: Performed By: #### L 501.5200, L100.0100, L501.2300, L500.2500 ####[facility] [address] [place], [address] RBC (Bld) [#/Vol] 3.51 10*6/uL Low 4.2-5.4 [facility] Comment on above: Performed By: #### L 501.5200, L100.0100, L501.2300, L500.2500 ####[facility] [address] [place], [address] RDW SD 44.8 fl High 35.1-43.9 [facility] Comment on above: Performed By: #### L 501.5200, L100.0100, L501.2300, L500.2500 ####[facility] [address] [place], [address] WBC (Bld) [#/Vol] 4.9 10*3/uL Normal 4.4-11.0 [facility] Comment on above: Performed By: #### L 501.5200, L100.0100, L501.2300, L500.2500 ####[facility] [address] [place], [address] Consultation - Infectious Dx on 07-02-2024 Consultation - Infectious Dx Normal [facility] Ferritinon 07-02-2024 Ferritin [Mass/Vol] 148 ng/mL Normal 8-252 [facility] Comment on above: Performed By: #### L 503.6030, L503.6550 ####[facility] [address] [place], [address] Ferritin measurementOrdered By: Nicole Trujillo on 07-02-2024 Ferritin measurement 148 ng/mL 8-252 [facility] Iron (Unsp spec) [Mass/Mass] Ordered By: Nicole Trujillo on 07-02-2024 Iron measurement (mass/mass) 106 ug/dL 50-170 [facility] Iron saturation [Mass fracti on]Ordered By: Nicole Trujillo on 07-02-2024 Serum or plasma iron saturation measurement (mass fraction) 39.8 % 15.0-55.0 [facility] Iron+Iron Binding Capacityon 07-02-2024 Iron [Mass/Vol] 106 ug/dL Normal 50-170 [facility] Comment on above: Performed By: #### L 503.6030, L503.6550 ####[facility] [address] [place], [address] IRON SATURATION 39.8 Normal 15.0-55.0 [facility] Comment on above: Performed By: #### L 503.6030, L503.6550 ####[facility] [address] [place], [address] TIBC 266 ug/dL Normal 250-450 [facility] Comment on above: Performed By: #### L 503.6030, L503.6550 ####[facility] [address] [place], [address] Magnesiumon 07-02-2024 Magnesium [Mass/Vol] 2.0 mg/dL Normal 1.6-2.6 [facility] Comment on above: Performed By: #### L 501.5200, L100.0100, L501.2300, L500.2500 ####[facility] [address] [place], [address] Magnesium measurementOrdered By: Nicole Trujillo on 07-02-2024 Magnesium measurement 2.0 mg/dL 1.6-2.6 [facility] Phosphoruson 07-02-2024 Phosphate [Mass/Vol] 2.8 mg/dL Normal 2.5-4.9 [facility] Comment on above: Performed By: #### L 501.5200, L100.0100, L501.2300, L500.2500 ####[facility] [address] [place], [place], [address] Phosphorus measurementOrdere d By: Nicole Trujillo on 07-02-2024 Phosphorus measurement 2.8 mg/dL 2.5-4.9 [facility] TIBCOrdered By: Nicole Trujillo on 07-02-2024 TIBC 266 ug/dL 250-450 [facility] Urine Cultureon 07-02-2024 URC Normal [facility] Comment on above: Performed By: #### M 100.2200 ####[facility] [address] [place], [place], [address] ALP [Catalytic activity/Vol] Ordered By: Nicole Trujillo on 07-01-2024 Serum or plasma alkaline phosphatase measurement 80 U/L 45-117 [facility] ALT [Catalytic activity/Vol] Ordered By: Nicole Trujillo on 07-01-2024 Serum or plasma alanine aminotransferase (ALT) measurement 22 U/L 13-56 [facility] Albumin [Mass/Vol]Ordered By : Nicole Trujillo on 07-01-2024 Serum or plasma albumin measurement (mass/volume) 2.7 g/dL Low 3.2-5.0 [facility] Albumin to globulin ratioOrd ered By: Nicole Trujillo on 07-01-2024 Albumin to globulin ratio 0.8 RATIO Low 0.9-2.4 [facility] Bedside Glucoseon 07-01-2024 FINGERSTICK GLU 254 mg/dL High 74-106 [facility] Comment on above: Result Comment: TALIA GEMENT OF PATIENT CARE PER NURSING PROTOCOL Performed By: #### L 501.080 ####[facility] [address], [address] FINGERSTICK GLU 195 mg/dL High 74-106 [facility] Comment on above: Result Comment: TALIA GEMENT OF PATIENT CARE PER NURSING PROTOCOL Performed By: #### L 501.080 ####[facility] [address] [place], [address] FINGERSTICK GLU 117 mg/dL High 74-106 [facility] Comment on above: Result Comment: TALIA GEMENT OF PATIENT CARE PER NURSING PROTOCOL Performed By: #### L 501.080 ####[facility] [address] [place], [address] Bilirubin, totalOrdered By: Nicole Trujillo on 07-01-2024 Bilirubin, total 1.10 mg/dL High 0.20-1.00 [facility] CBC W/Diff, Automatedon 06-05 Absolute Lymph 1.40 X10 3/uL Normal 0.83-4.51 [facility] Comment on above: Performed By: #### L 500.4050, L501.2300, L100.0100, L501.9520, L501.5200 ####[facility] [address] [place], [address] Absolute Neut 3.1 X10 3/uL Normal 2.0-7.7 [facility] Comment on above: Performed By: #### L 500.4050, L501.2300, L100.0100, L501.9520, L501.5200 ####[facility] [address] [place], [address] Basophils/100 WBC (Bld) 0.4 % Normal 0-1 [facility] Comment on above: Performed By: #### L 500.4050, L501.2300, L100.0100, L501.9520, L501.5200 ####[facility] [address] [place], [address] Eosinophils/100 WBC (Bld) 0.2 % Normal 0-5 [facility] Comment on above: Performed By: #### L 500.4050, L501.2300, L100.0100, L501.9520, L501.5200 ####[facility] [address] [place], [address] Erythrocyte distribution width (RBC) [Ratio] 14.6 % Normal 11.6-14.6 [facility] Comment on above: Performed By: #### L 500.4050, L501.2300, L100.0100, L501.9520, L501.5200 ####[facility] [address] [place], [address] Hematocrit (Bld) [Volume fraction] 33.5 % Low 37-47 [facility] Comment on above: Performed By: #### L 500.4050, L501.2300, L100.0100, L501.9520, L501.5200 ####[facility] [address] [place], [address] Hemoglobin (Bld) [Mass/Vol] 10.7 g/dL Low 12.0-15.0 [facility] Comment on above: Performed By: #### L 500.4050, L501.2300, L100.0100, L501.9520, L501.5200 ####[facility] [address] [place], [address] IG% 0.200 Normal 0.0-0.9 [facility] Comment on above: Result Comment: IG% - Immature Granulocytes (promyelocytes, myelocytes andmetamyelocytes) > 1% indicates that a LEFT SHIFT is Present. Performed By: #### L 500.4050, L501.2300, L100.0100, L501.9520, L501.5200 ####[facility] [address] [place], [address] Lymphocytes/100 WBC (Bld) 28.5 % Normal 19-41 [facility] Comment on above: Performed By: #### L 500.4050, L501.2300, L100.0100, L501.9520, L501.5200 ####[facility] [address] [place], [address] MCH (RBC) [Entitic mass] 26.7 pg Low 27.0-32.0 [facility] Comment on above: Performed By: #### L 500.4050, L501.2300, L100.0100, L501.9520, L501.5200 ####[facility] [address] [place], [address] MCHC (RBC) [Mass/Vol] 31.9 g/dL Low 32-36 [facility] Comment on above: Performed By: #### L 500.4050, L501.2300, L100.0100, L501.9520, L501.5200 ####[facility] [address] [place], [address] MCV (RBC) [Entitic vol] 83.5 fL Normal 81-99 [facility] Comment on above: Performed By: #### L 500.4050, L501.2300, L100.0100, L501.9520, L501.5200 ####[facility] [address] [place], [address] Monocytes/100 WBC (Bld) 6.7 % Normal 0-10 [facility] Comment on above: Performed By: #### L 500.4050, L501.2300, L100.0100, L501.9520, L501.5200 ####[facility] [address] [place], [address] Neutrophils/100 WBC (Bld) 64.0 % Normal 47-70 [facility] Comment on above: Performed By: #### L 500.4050, L501.2300, L100.0100, L501.9520, L501.5200 ####[facility] [address] [place], [address] Nucleated RBC (Bld) [#/Vol] 0 10*3/uL Normal 0-5 [facility] Comment on above: Performed By: #### L 500.4050, L501.2300, L100.0100, L501.9520, L501.5200 ####[facility] [address] [place], [address] Platelet mean volume (Bld) [Entitic vol] 9.6 fL Normal 6.2-12.0 [facility] Comment on above: Performed By: #### L 500.4050, L501.2300, L100.0100, L501.9520, L501.5200 ####[facility] [address] [place], [address] Platelets (Bld) [#/Vol] 184 10*3/uL Normal 150-450 [facility] Comment on above: Performed By: #### L 500.4050, L501.2300, L100.0100, L501.9520, L501.5200 ####[facility] [address] [place], [address] RBC (Bld) [#/Vol] 4.01 10*6/uL Low 4.2-5.4 [facility] Comment on above: Performed By: #### L 500.4050, L501.2300, L100.0100, L501.9520, L501.5200 ####[facility] [address] [place], [address] RDW SD 44.7 fl High 35.1-43.9 [facility] Comment on above: Performed By: #### L 500.4050, L501.2300, L100.0100, L501.9520, L501.5200 ####[facility] [address] [place], [address] WBC (Bld) [#/Vol] 4.9 10*3/uL Normal 4.4-11.0 [facility] Comment on above: Performed By: #### L 500.4050, L501.2300, L100.0100, L501.9520, L501.5200 ####[facility] [address] [place], [address] Comprehensive Metabolic Prof ilon 07-01-2024 Albumin [Mass/Vol] 2.7 g/dL Low 3.2-5.0 [facility] Comment on above: Performed By: #### L 500.4050, L501.2300, L100.0100, L501.9520, L501.5200 ####[facility] [address] [place], [address] Albumin/Globulin [Mass ratio] 0.8 {ratio} Low 0.9-2.4 [facility] Comment on above: Performed By: #### L 500.4050, L501.2300, L100.0100, L501.9520, L501.5200 ####[facility] [address] [place], [address] ALK P 80 U/L Normal 45-117 [facility] Comment on above: Performed By: #### L 500.4050, L501.2300, L100.0100, L501.9520, L501.5200 ####[facility] [address] [place], [address] ALT [Catalytic activity/Vol] 22 U/L Normal 13-56 [facility] Comment on above: Performed By: #### L 500.4050, L501.2300, L100.0100, L501.9520, L501.5200 ####[facility] [address] [place], [address] AST [Catalytic activity/Vol] 24 U/L Normal 15-37 [facility] Comment on above: Performed By: #### L 500.4050, L501.2300, L100.0100, L501.9520, L501.5200 ####[facility] [address] [place], [address] Bilirubin [Mass/Vol] 1.10 mg/dL High 0.20-1.00 [facility] Comment on above: Result Comment: For patients on eltrombopag therapy, use of Dimension Chappell TBIL is not recommended. Performed By: #### L 500.4050, L501.2300, L100.0100, L501.9520, L501.5200 ####[facility] [address] [place], [address] BUN/CRE 22.7 RATIO High 10-20 [facility] Comment on above: Performed By: #### L 500.4050, L501.2300, L100.0100, L501.9520, L501.5200 ####[facility] [address] [place], [address] CA,Total 8.5 mg/dL Normal 8.5-10.1 [facility] Comment on above: Performed By: #### L 500.4050, L501.2300, L100.0100, L501.9520, L501.5200 ####[facility] [address] [place], [address] Chloride [Moles/Vol] 107 mmol/L Normal 98-107 [facility] Comment on above: Performed By: #### L 500.4050, L501.2300, L100.0100, L501.9520, L501.5200 ####[facility] [address] [place], [address] CO2 [Moles/Vol] 21.0 mmol/L Normal 21.0-32.0 [facility] Comment on above: Performed By: #### L 500.4050, L501.2300, L100.0100, L501.9520, L501.5200 ####[facility] [address] [place], [address] Creatinine [Mass/Vol] 1.19 mg/dL High 0.55-1.02 [facility] Comment on above: Result Comment: The validity of the calculated GFR GFRAA in patients over70 years has not been determined. Clinical correlation isessential. Performed By: #### L 500.4050, L501.2300, L100.0100, L501.9520, L501.5200 ####[facility] [address] [place], [address] ECRCL 60.52 ml/min Normal [facility] Comment on above: Performed By: #### L 500.4050, L501.2300, L100.0100, L501.9520, L501.5200 ####[facility] [address] [place], [address] EST GFR - AA 61 mL/min Normal >60 [facility] Comment on above: Result Comment: Afri can Swiss GFR Calc Performed By: #### L 500.4050, L501.2300, L100.0100, L501.9520, L501.5200 ####[facility] [address] [place], [address] GAP 9 Normal 5-15 [facility] Comment on above: Performed By: #### L 500.4050, L501.2300, L100.0100, L501.9520, L501.5200 ####[facility] [address] [place], [address] GFR/1.73 sq M.predicted among non-blacks MDRD (S/P/Bld) [Vol rate/Area] 51 mL/min/{1.73_m2} Low >60 [facility] Comment on above: Result Comment: Non- GFR Calc Performed By: #### L 500.4050, L501.2300, L100.0100, L501.9520, L501.5200 ####[facility] [address] [place], [address] Globulin (S) [Mass/Vol] 3.5 g/dL Normal 2.2-4.2 [facility] Comment on above: Performed By: #### L 500.4050, L501.2300, L100.0100, L501.9520, L501.5200 ####[facility] [address] [place], [address] Glucose [Mass/Vol] 159 mg/dL High 74-106 [facility] Comment on above: Result Comment: Fast ing Glucose result greater than or equal to 126 mg/dLsuggests DIABETES MELLITUS per A.D.A. criteria. Performed By: #### L 500.4050, L501.2300, L100.0100, L501.9520, L501.5200 ####[facility] [address] [place], [address] Potassium [Moles/Vol] 3.4 mmol/L Low 3.5-5.1 [facility] Comment on above: Performed By: #### L 500.4050, L501.2300, L100.0100, L501.9520, L501.5200 ####[facility] [address] [place], [address] Sodium [Moles/Vol] 136 mmol/L Normal 136-145 [facility] Comment on above: Performed By: #### L 500.4050, L501.2300, L100.0100, L501.9520, L501.5200 ####[facility] [address] [place], [address] T PROT 6.2 g/dL Low 6.4-8.2 [facility] Comment on above: Performed By: #### L 500.4050, L501.2300, L100.0100, L501.9520, L501.5200 ####[facility] [address] [place], [address] Urea nitrogen [Mass/Vol] 27 mg/dL High 7-18 [facility] Comment on above: Performed By: #### L 500.4050, L501.2300, L100.0100, L501.9520, L501.5200 ####[facility] [address] [place], [address] Magnesiumon 07-01-2024 Magnesium [Mass/Vol] 2.0 mg/dL Normal 1.6-2.6 [facility] Comment on above: Performed By: #### L 500.4050, L501.2300, L100.0100, L501.9520, L501.5200 ####[facility] [address] [place], [address] No Panel InformationOrdered By: Nicole Trujillo on 07-01-2024 24 U/L 15-37 [facility] Phosphoruson 07-01-2024 Phosphate [Mass/Vol] 2.4 mg/dL Low 2.5-4.9 [facility] Comment on above: Performed By: #### L 500.4050, L501.2300, L100.0100, L501.9520, L501.5200 ####[facility] [address] [place], [address] Serum globulin measurementOr dered By: Nicole Trujillo on 07-01-2024 Serum globulin measurement 3.5 g/dL 2.2-4.2 [facility] TSH QnOrdered By: Nicole Gardiner on 07-01-2024 Serum or plasma thyroid stimulating hormone (TSH) measurement (units/volume) 1.730 uIU/mL 0.358-3.74 0 [facility] Thyroid Stim Hormone (TSH)on 07-01-2024 TSH 1.730 uIU/mL Normal 0.358-3.74 0 [facility] Comment on above: Performed By: #### L 500.4050, L501.2300, L100.0100, L501.9520, L501.5200 ####[facility] [address] [place], [address] Total proteinOrdered By: Jenae Trujillo on 07-01-2024 Total protein 6.2 g/dL Low 6.4-8.2 [facility] Bedside Glucoseon 06-30-2024 FINGERSTICK GLU 149 mg/dL High -106 [facility] Comment on above: Result Comment: TALIA GEMENT OF PATIENT CARE PER NURSING PROTOCOL Performed By: #### L 501.080 ####[facility] [address] [place], [address] FINGERSTICK GLU 216 mg/dL High [address] [place] [address] Comment on above: Result Comment: TALIA GEMENT OF PATIENT CARE PER NURSING PROTOCOL Performed By: #### L 501.080 ####[facility] [address] [place], [address] FINGERSTICK GLU 288 mg/dL High [address] [place] [address] Comment on above: Result Comment: TALIA GEMENT OF PATIENT CARE PER NURSING PROTOCOL Performed By: #### L 501.080 ####[facility] [address] [place], [address] FINGERSTICK GLU 291 mg/dL High [facility]106 [facility] Comment on above: Result Comment: TALIA GEMENT OF PATIENT CARE PER NURSING PROTOCOL Performed By: #### L 501.080 ####[facility] [address] [place], [address] CBC W/Diff, Automatedon - Absolute Lymph 1.35 X10 3/uL Normal 0.83-4.51 [facility] Comment on above: Performed By: #### L 100.0100, L500.4050, L501.5200 ####[facility] [address] [place], [address] Absolute Neut 3.3 X10 3/uL Normal 2.0-7.7 [facility] Comment on above: Performed By: #### L 100.0100, L500.4050, L501.5200 ####[facility] [address] [place], [address] Basophils/100 WBC (Bld) 0.2 % Normal 0-1 [facility] Comment on above: Performed By: #### L 100.0100, L500.4050, L501.5200 ####[facility] [address] [place], [address] Eosinophils/100 WBC (Bld) 0.2 % Normal 0-5 [facility] Comment on above: Performed By: #### L 100.0100, L500.4050, L501.5200 ####[facility] [address] [place], [address] Erythrocyte distribution width (RBC) [Ratio] 14.5 % Normal 11.6-14.6 [facility] Comment on above: Performed By: #### L 100.0100, L500.4050, L501.5200 ####[facility] [address] [place], [address] Hematocrit (Bld) [Volume fraction] 36.7 % Low 37-47 [facility] Comment on above: Performed By: #### L 100.0100, L500.4050, L501.5200 ####[facility] [address] [place], [address] Hemoglobin (Bld) [Mass/Vol] 12.0 g/dL Normal 12.0-15.0 [facility] Comment on above: Performed By: #### L 100.0100, L500.4050, L501.5200 ####[facility] [address] [place], [address] IG% 0.400 Normal 0.0-0.9 [facility] Comment on above: Result Comment: IG% - Immature Granulocytes (promyelocytes, myelocytes andmetamyelocytes) > 1% indicates that a LEFT SHIFT is Present. Performed By: #### L 100.0100, L500.4050, L501.5200 ####[facility] [address] [place], [address] Lymphocytes/100 WBC (Bld) 26.4 % Normal 19-41 [facility] Comment on above: Performed By: #### L 100.0100, L500.4050, L501.5200 ####[facility] [address] [place], [address] MCH (RBC) [Entitic mass] 27.0 pg Normal 27.0-32.0 [facility] Comment on above: Performed By: #### L 100.0100, L500.4050, L501.5200 ####[facility] [address] [place], [address] MCHC (RBC) [Mass/Vol] 32.7 g/dL Normal 32-36 [facility] Comment on above: Performed By: #### L 100.0100, L500.4050, L501.5200 ####[facility] [address] [place], [address] MCV (RBC) [Entitic vol] 82.5 fL Normal 81-99 [facility] Comment on above: Performed By: #### L 100.0100, L500.4050, L501.5200 ####[facility] [address] [place], [address] Monocytes/100 WBC (Bld) 7.8 % Normal 0-10 [facility] Comment on above: Performed By: #### L 100.0100, L500.4050, L501.5200 ####[facility] [address] [place], [address] Neutrophils/100 WBC (Bld) 65.0 % Normal 47-70 [facility] Comment on above: Performed By: #### L 100.0100, L500.4050, L501.5200 ####[facility] [address] [place], [address] Nucleated RBC (Bld) [#/Vol] 0 10*3/uL Normal 0-5 [facility] Comment on above: Performed By: #### L 100.0100, L500.4050, L501.5200 ####[facility] [address] [place], [address] Platelet mean volume (Bld) [Entitic vol] 9.6 fL Normal 6.2-12.0 [facility] Comment on above: Performed By: #### L 100.0100, L500.4050, L501.5200 ####[facility] [address] [place], [address] Platelets (Bld) [#/Vol] 215 10*3/uL Normal 150-450 [facility] Comment on above: Performed By: #### L 100.0100, L500.4050, L501.5200 ####[facility] [address] [place], [address] RBC (Bld) [#/Vol] 4.45 10*6/uL Normal 4.2-5.4 [facility] Comment on above: Performed By: #### L 100.0100, L500.4050, L501.5200 ####[facility] [address] [place], [address] RDW SD 43.2 fl Normal 35.1-43.9 [facility] Comment on above: Performed By: #### L 100.0100, L500.4050, L501.5200 ####[facility] [address] [place], [address] WBC (Bld) [#/Vol] 5.1 10*3/uL Normal 4.4-11.0 [facility] Comment on above: Performed By: #### L 100.0100, L500.4050, L501.5200 ####[facility] [address] [place], [address] Comprehensive Metabolic Prof ilon 06-30-2024 Albumin [Mass/Vol] 2.9 g/dL Low 3.2-5.0 [facility] Comment on above: Performed By: #### L 100.0100, L500.4050, L501.5200 ####[facility] [address] [place], [address] Albumin/Globulin [Mass ratio] 0.7 {ratio} Low 0.9-2.4 [facility] Comment on above: Performed By: #### L 100.0100, L500.4050, L501.5200 ####[facility] [address] [place], [address] ALK P 96 U/L Normal 45-117 [facility] Comment on above: Performed By: #### L 100.0100, L500.4050, L501.5200 ####[facility] [address] [place], [address] ALT [Catalytic activity/Vol] 25 U/L Normal 13-56 [facility] Comment on above: Performed By: #### L 100.0100, L500.4050, L501.5200 ####[facility] [address] [place], [address] AST [Catalytic activity/Vol] 32 U/L Normal 15-37 [facility] Comment on above: Performed By: #### L 100.0100, L500.4050, L501.5200 ####[facility] [address] [place], [address] Bilirubin [Mass/Vol] 0.90 mg/dL Normal 0.20-1.00 [facility] Comment on above: Result Comment: For patients on eltrombopag therapy, use of Dimension Chappell TBIL is not recommended. Performed By: #### L 100.0100, L500.4050, L501.5200 ####[facility] [address] [place], [address] BUN/CRE 27.0 RATIO High 10-20 [facility] Comment on above: Performed By: #### L 100.0100, L500.4050, L501.5200 ####[facility] [address] [place], [address] CA,Total 9.0 mg/dL Normal 8.5-10.1 [facility] Comment on above: Performed By: #### L 100.0100, L500.4050, L501.5200 ####[facility] [address] [place], [address] Chloride [Moles/Vol] 102 mmol/L Normal 98-107 [facility] Comment on above: Performed By: #### L 100.0100, L500.4050, L501.5200 ####[facility] [address] [place], [address] CO2 [Moles/Vol] 27.0 mmol/L Normal 21.0-32.0 [facility] Comment on above: Performed By: #### L 100.0100, L500.4050, L501.5200 ####[facility] [address] [place], [address] Creatinine [Mass/Vol] 0.81 mg/dL Normal 0.55-1.02 [facility] Comment on above: Result Comment: The validity of the calculated GFR GFRAA in patients over70 years has not been determined. Clinical correlation isessential. Performed By: #### L 100.0100, L500.4050, L501.5200 ####[facility] [address] [place], [address] ECRCL 88.19 ml/min Normal [facility] Comment on above: Performed By: #### L 100.0100, L500.4050, L501.5200 ####[facility] [address] [place], [address] EST GFR - AA 95 mL/min Normal >60 [facility] Comment on above: Result Comment: Afri can Swiss GFR Calc Performed By: #### L 100.0100, L500.4050, L501.5200 ####[facility] [address] [place], [address] GAP 5 Normal 5-15 [facility] Comment on above: Performed By: #### L 100.0100, L500.4050, L501.5200 ####[facility] [address] [place], [address] GFR/1.73 sq M.predicted among non-blacks MDRD (S/P/Bld) [Vol rate/Area] 78 mL/min/{1.73_m2} Normal >60 [facility] Comment on above: Result Comment: Non- GFR Calc Performed By: #### L 100.0100, L500.4050, L501.5200 ####[facility] [address] [place], [address] Globulin (S) [Mass/Vol] 4.3 g/dL High 2.2-4.2 [facility] Comment on above: Performed By: #### L 100.0100, L500.4050, L501.5200 ####[facility] [address] [place], [address] Glucose [Mass/Vol] 291 mg/dL High 74-106 [facility] Comment on above: Result Comment: Gluc ose result greater than or equal to 200 mg/dLsuggests DIABETES MELLITUS per A.D.A. criteria. Performed By: #### L 100.0100, L500.4050, L501.5200 ####[facility] [address] [place], [address] Potassium [Moles/Vol] 3.2 mmol/L Low 3.5-5.1 [facility] Comment on above: Performed By: #### L 100.0100, L500.4050, L501.5200 ####[facility] [address] [place], [address] Sodium [Moles/Vol] 134 mmol/L Low 136-145 [facility] Comment on above: Performed By: #### L 100.0100, L500.4050, L501.5200 ####[facility] [address] [place], [address] T PROT 7.2 g/dL Normal 6.4-8.2 [facility] Comment on above: Performed By: #### L 100.0100, L500.4050, L501.5200 ####[facility] [address] [place], [address] Urea nitrogen [Mass/Vol] 22 mg/dL High 7-18 [facility] Comment on above: Performed By: #### L 100.0100, L500.4050, L501.5200 ####[facility] [address] [place], [address] Magnesiumon 06-30-2024 Magnesium [Mass/Vol] 2.1 mg/dL Normal 1.6-2.6 [facility] Comment on above: Performed By: #### L 100.0100, L500.4050, L501.5200 ####[facility] [address] [place], [address] 12 Lead EKGon 06-29-2024 12 Lead EKG Normal [facility] Abdomen/Pelvis W IV Cont ONL Yon 06-29-2024 Abdomen/Pelvis W IV Cont ONLY Normal [facility] Bacteria LM.HPF (Urine sed) [#/Area]Ordered By: Davis Ibarra on 06-29-2024 Urine sediment bacteria count by microscopy (number/high power field) 3+ /hpf None Seen [facility] Bedside Glucoseon 06-29-2024 FINGERSTICK GLU 278 mg/dL High 74-106 [facility] Comment on above: Result Comment: TALIA CHAMBERS OF PATIENT CARE PER NURSING PROTOCOL Performed By: #### L 501.080 ####[facility] [address] [place], [address] Beta HCG ( test) Ql Ordered By: Davis Ibarra on 06-29-2024 Serum beta-hCG test, qualitative Negative [facility] CBC W/Diff, Automatedon 06-05 Absolute Lymph 1.05 X10 3/uL Normal 0.83-4.51 [facility] Comment on above: Performed By: #### L 700.6800, L501.2450, L100.0100, L501.5425, L500.4050 ####[facility] [address] [place], [address] Absolute Neut 4.8 X10 3/uL Normal 2.0-7.7 [facility] Comment on above: Performed By: #### L 700.6800, L501.2450, L100.0100, L501.5425, L500.4050 ####[facility] [address] [place], [address] Basophils/100 WBC (Bld) 0.2 % Normal 0-1 [facility] Comment on above: Performed By: #### L 700.6800, L501.2450, L100.0100, L501.5425, L500.4050 ####[facility] [address] [place], [address] Eosinophils/100 WBC (Bld) 0.5 % Normal 0-5 [facility] Comment on above: Performed By: #### L 700.6800, L501.2450, L100.0100, L501.5425, L500.4050 ####[facility] [address] [place], [address] Erythrocyte distribution width (RBC) [Ratio] 14.3 % Normal 11.6-14.6 [facility] Comment on above: Performed By: #### L 700.6800, L501.2450, L100.0100, L501.5425, L500.4050 ####[facility] [address] [place], [address] Hematocrit (Bld) [Volume fraction] 36.4 % Low 37-47 [facility] Comment on above: Performed By: #### L 700.6800, L501.2450, L100.0100, L501.5425, L500.4050 ####[facility] [address] [place], [address] Hemoglobin (Bld) [Mass/Vol] 12.8 g/dL Normal 12.0-15.0 [facility] Comment on above: Performed By: #### L 700.6800, L501.2450, L100.0100, L501.5425, L500.4050 ####[facility] [address] [place], [address] IG% 0.300 Normal 0.0-0.9 [facility] Comment on above: Result Comment: IG% - Immature Granulocytes (promyelocytes, myelocytes andmetamyelocytes) > 1% indicates that a LEFT SHIFT is Present. Performed By: #### L 700.6800, L501.2450, L100.0100, L501.5425, L500.4050 ####[facility] [address] [place], [address] Lymphocytes/100 WBC (Bld) 16.6 % Low 19-41 [facility] Comment on above: Performed By: #### L 700.6800, L501.2450, L100.0100, L501.5425, L500.4050 ####[facility] [address] [place], [address] MCH (RBC) [Entitic mass] 28.3 pg Normal 27.0-32.0 [facility] Comment on above: Performed By: #### L 700.6800, L501.2450, L100.0100, L501.5425, L500.4050 ####[facility] [address] [place], [address] MCHC (RBC) [Mass/Vol] 35.2 g/dL Normal 32-36 [facility] Comment on above: Performed By: #### L 700.6800, L501.2450, L100.0100, L501.5425, L500.4050 ####[facility] [address] [place], [address] MCV (RBC) [Entitic vol] 80.5 fL Low 81-99 [facility] Comment on above: Performed By: #### L 700.6800, L501.2450, L100.0100, L501.5425, L500.4050 ####[facility] [address] [place], [address] Monocytes/100 WBC (Bld) 6.2 % Normal 0-10 [facility] Comment on above: Performed By: #### L 700.6800, L501.2450, L100.0100, L501.5425, L500.4050 ####[facility] [address] [place], [address] Neutrophils/100 WBC (Bld) 76.2 % High 47-70 [facility] Comment on above: Performed By: #### L 700.6800, L501.2450, L100.0100, L501.5425, L500.4050 ####[facility] [address] [place], [address] Nucleated RBC (Bld) [#/Vol] 0 10*3/uL Normal 0-5 [facility] Comment on above: Performed By: #### L 700.6800, L501.2450, L100.0100, L501.5425, L500.4050 ####[facility] [address] [place], [address] Platelet mean volume (Bld) [Entitic vol] 9.4 fL Normal 6.2-12.0 [facility] Comment on above: Performed By: #### L 700.6800, L501.2450, L100.0100, L501.5425, L500.4050 ####[facility] [address] [place], [address] Platelets (Bld) [#/Vol] 207 10*3/uL Normal 150-450 [facility] Comment on above: Performed By: #### L 700.6800, L501.2450, L100.0100, L501.5425, L500.4050 ####[facility] [address] [place], [address] RBC (Bld) [#/Vol] 4.52 10*6/uL Normal 4.2-5.4 [facility] Comment on above: Performed By: #### L 700.6800, L501.2450, L100.0100, L501.5425, L500.4050 ####[facility] [address] [place], [address] RDW SD 42.1 fl Normal 35.1-43.9 [facility] Comment on above: Performed By: #### L 700.6800, L501.2450, L100.0100, L501.5425, L500.4050 ####[facility] [address] [place], [address] WBC (Bld) [#/Vol] 6.3 10*3/uL Normal 4.4-11.0 [facility] Comment on above: Performed By: #### L 700.6800, L501.2450, L100.0100, L501.5425, L500.4050 ####[facility] [address] [place], [address] Chest 1 View (Portable)on Chest 1 View (Portable) Normal [facility] Clarity (U)Ordered By: Madhav Ibarra on 06-29-2024 Urine clarity Cloudy Clear [facility] Color (U)Ordered By: Davis Ibarra on 06-29-2024 Urine color determination Yellow Yellow [facility] Comprehensive Metabolic Prof ilon 06-29-2024 Albumin [Mass/Vol] 3.3 g/dL Normal 3.2-5.0 [facility] Comment on above: Order Comment: 1Y Performed By: #### L 700.6800, L501.2450, L100.0100, L501.5425, L500.4050 ####[facility] [address] [place], [address] Albumin/Globulin [Mass ratio] 0.8 {ratio} Low 0.9-2.4 [facility] Comment on above: Order Comment: 1Y Performed By: #### L 700.6800, L501.2450, L100.0100, L501.5425, L500.4050 ####[facility] [address] [place], [address] ALK P 113 U/L Normal 45-117 [facility] Comment on above: Order Comment: 1Y Performed By: #### L 700.6800, L501.2450, L100.0100, L501.5425, L500.4050 ####[facility] [address] [place], [address] ALT [Catalytic activity/Vol] 26 U/L Normal 13-56 [facility] Comment on above: Order Comment: 1Y Performed By: #### L 700.6800, L501.2450, L100.0100, L501.5425, L500.4050 ####[facility] [address] [place], [address] AST [Catalytic activity/Vol] 34 U/L Normal 15-37 [facility] Comment on above: Order Comment: 1Y Performed By: #### L 700.6800, L501.2450, L100.0100, L501.5425, L500.4050 ####[facility] [address] [place], [address] Bilirubin [Mass/Vol] 0.80 mg/dL Normal 0.20-1.00 [facility] Comment on above: Order Comment: 1Y Result Comment: For patients on eltrombopag therapy, use of Dimension Chappell TBIL is not recommended. Performed By: #### L 700.6800, L501.2450, L100.0100, L501.5425, L500.4050 ####[facility] [address] [place], [address] BUN/CRE 27.6 RATIO High 10-20 [facility] Comment on above: Order Comment: 1Y Performed By: #### L 700.6800, L501.2450, L100.0100, L501.5425, L500.4050 ####[facility] [address] [place], [address] CA,Total 9.6 mg/dL Normal 8.5-10.1 [facility] Comment on above: Order Comment: 1Y Performed By: #### L 700.6800, L501.2450, L100.0100, L501.5425, L500.4050 ####[facility] [address] [place], [address] Chloride [Moles/Vol] 98 mmol/L Normal 98-107 [facility] Comment on above: Order Comment: 1Y Performed By: #### L 700.6800, L501.2450, L100.0100, L501.5425, L500.4050 ####[facility] [address] [place], [address] CO2 [Moles/Vol] 25.0 mmol/L Normal 21.0-32.0 [facility] Comment on above: Order Comment: 1Y Performed By: #### L 700.6800, L501.2450, L100.0100, L501.5425, L500.4050 ####[facility] [address] [place], [address] Creatinine [Mass/Vol] 0.91 mg/dL Normal 0.55-1.02 [facility] Comment on above: Order Comment: 1Y Result Comment: The validity of the calculated GFR GFRAA in patients over70 years has not been determined. Clinical correlation isessential. Performed By: #### L 700.6800, L501.2450, L100.0100, L501.5425, L500.4050 ####[facility] [address] [place], [address] ECRCL 79.48 ml/min Normal [facility] Comment on above: Order Comment: 1Y Performed By: #### L 700.6800, L501.2450, L100.0100, L501.5425, L500.4050 ####[facility] [address] [place], [address] EST GFR - AA 84 mL/min Normal >60 [facility] Comment on above: Order Comment: 1Y Result Comment: Afri can Swiss GFR Calc Performed By: #### L 700.6800, L501.2450, L100.0100, L501.5425, L500.4050 ####[facility] [address] [place], [address] GAP 9 Normal 5-15 [facility] Comment on above: Order Comment: 1Y Performed By: #### L 700.6800, L501.2450, L100.0100, L501.5425, L500.4050 ####[facility] [address] [place], [address] GFR/1.73 sq M.predicted among non-blacks MDRD (S/P/Bld) [Vol rate/Area] 69 mL/min/{1.73_m2} Normal >60 [facility] Comment on above: Order Comment: 1Y Result Comment: Non- GFR Calc Performed By: #### L 700.6800, L501.2450, L100.0100, L501.5425, L500.4050 ####[facility] [address] [place], [address] Globulin (S) [Mass/Vol] 4.4 g/dL High 2.2-4.2 [facility] Comment on above: Order Comment: 1Y Performed By: #### L 700.6800, L501.2450, L100.0100, L501.5425, L500.4050 ####[facility] [address] [place], [address] Glucose [Mass/Vol] 363 mg/dL High 74-106 [facility] Comment on above: Order Comment: 1Y Result Comment: Gluc ose result greater than or equal to 200 mg/dLsuggests DIABETES MELLITUS per A.D.A. criteria. Performed By: #### L 700.6800, L501.2450, L100.0100, L501.5425, L500.4050 ####[facility] [address] [place], [address] Potassium [Moles/Vol] 3.6 mmol/L Normal 3.5-5.1 [facility] Comment on above: Order Comment: 1Y Performed By: #### L 700.6800, L501.2450, L100.0100, L501.5425, L500.4050 ####[facility] [address] [place], [address] Sodium [Moles/Vol] 131 mmol/L Low 136-145 [facility] Comment on above: Order Comment: 1Y Performed By: #### L 700.6800, L501.2450, L100.0100, L501.5425, L500.4050 ####[facility] [address] [place], [address] T PROT 7.7 g/dL Normal 6.4-8.2 [facility] Comment on above: Order Comment: 1Y Performed By: #### L 700.6800, L501.2450, L100.0100, L501.5425, L500.4050 ####[facility] [address] [place], [address] Urea nitrogen [Mass/Vol] 25 mg/dL High 7-18 [facility] Comment on above: Order Comment: 1Y Performed By: #### L 700.6800, L501.2450, L100.0100, L501.5425, L500.4050 ####[facility] [address] [place], [address] Emergency Department Summary on 06-29-2024 Emergency Department Summary Normal [facility] Glucose Ql (U)Ordered By: Matt Ibarra on 06-29-2024 Urine glucose detection 1000 mg/dl High Normal [facility] H AND P Exam - Hospitaliston 06-29-2024 H&P Exam - Hospitalist Normal [facility] L501.5425on 06-29-2024 TROPONIN-I HS 28 pg/mL Normal 3.0-54.0 [facility] Comment on above: Order Comment: 1Y Result Comment: Plea se Note: New Test Units and Gender Specific Reference Ranges. For more information see Policy Stat Procedure Chappell High Sensitivity Troponin (TNIH) and attachments. Performed By: #### L 700.6800, L501.2450, L100.0100, L501.5425, L500.4050 ####[facility] [address] [place], [place], [id number] Leukocyte esterase Test stri p Ql (U)Ordered By: Davis Ibarra on 06-29-2024 Urine leukocyte esterase detection by dipstick 500 /ul High Negative [facility] Lipaseon 06-29-2024 Lipase [Catalytic activity/Vol] 23 U/L Normal 13-75 [facility] Comment on above: Order Comment: 1Y Result Comment: Plea se note:LIPASE revised reference range effective 22.New Lipase methodology. Expected to produce lower valuesthan the previous assay method.NEW Reference Range: 13 - 75 U/L Performed By: #### L 700.6800, L501.2450, L100.0100, L501.5425, L500.4050 ####[facility] [address] [place], [place], [address] Lipase measurementOrdered By : Davis Ibarra on 06-29-2024 Lipase measurement 23 U/L 13-75 [facility] Microscopic analysis of urin e for red blood cells (RBC)Ordered By: Davis Ibarra on 06-29-2024 Microscopic analysis of urine for red blood cells (RBC) 0-5 SEEN /hpf 5-10 [facility] Mucus LM Ql (Urine sed)Order ed By: Davis Ibarra on 06-29-2024 Mucus detection in urine sediment by light microscopy 1+ /hpf [facility] Nitrite Test strip Ql (U)Ord ered By: Davis Ibarra on 06-29-2024 Urine nitrite test by dipstick Positive High Negative [facility] ,Serum,hCG Quali.on 06-29-2024 HCG, SERUM QUAL Negative Normal [facility] Comment on above: Performed By: #### L 700.6800, L501.2450, L100.0100, L501.5425, L500.4050 ####[facility] [address] [place], [address] Protein Test strip Ql (U)Ord ered By: Davis Ibarra on 06-29-2024 Urine protein assay by test strip, semi-quantitative 100 mg/dl High Negative [facility] Specific gravity (U) [Rel de nsity]Ordered By: Davis Ibarra on 06-29-2024 Urine specific gravity measurement 1.015 1.002-1.03 0 [facility] Tropinin I.cardiac panel Hig h sensitivity methodOrdered By: Davis Ibarra on 06-29-2024 Serum or plasma cardiac troponin I panel by high sensitivity method 28 pg/mL 3.0-54.0 [facility] Urinalysis, Completeon 06-29 BACTERIA 3+ /hpf Normal None Seen [facility] Comment on above: Order Comment: CLEAN CATCH Performed By: #### L 400.0001 ####[facility] [address] [place], [address] EPI,SQUAMOUS 0-5 SEEN Normal 5-10 [facility] Comment on above: Order Comment: CLEAN CATCH Performed By: #### L 400.0001 ####[facility] [address] [place], [address] Mucus Ql (Urine sed) 1+ /hpf Normal [facility] Comment on above: Order Comment: CLEAN CATCH Performed By: #### L 400.0001 ####[facility] [address] [place], [address] RBC 0-5 SEEN Normal 0-5 [facility] Comment on above: Order Comment: CLEAN CATCH Performed By: #### L 400.0001 ####[facility] [address] [place], [place], [address] WBC 10-25 SEEN Normal 0-5 [facility] Comment on above: Order Comment: CLEAN CATCH Performed By: #### L 400.0001 ####[facility] [address] [place], [place], [id number] Urine blood detectionOrdered By: Davis Ibarra on 06-29-2024 Urine blood detection 50 /ul High Negative [facility] Urine cultureOrdered By: [place] on 06-29-2024 Urine culture ESBL Escherichia coli Abnormal [facility] Urine total bilirubin detect ion by test stripOrdered By: Davis Ibarra on 06-29-2024 Urine total bilirubin detection by test strip Negative Negative [facility] Urobilinogen Ql (U)Ordered B y: Davis Ibarra on 06-29-2024 Urine urobilinogen measurement Normal mg/dl Normal [facility] White blood cell countOrdere d By: Davis Ibarra on 06-29-2024 White blood cell count 10-25 SEEN /hpf 0-5 [facility] pH (U)Ordered By: Adrien on 06-29-2024 Urine pH 6.0 5.0 - 8.0 [facility] .Auto Diffon 05-23-2024 Basophil, Absolute 0.1 10 3/mcL Normal 0.0-0.2 [facility] Comment on above: Performed By: #### C BC, MORPH, CMP, TROPHS, ADIFF, GFR, LIP, MDW, ANEU #### [address] [address] Basophils/100 WBC (Bld) 0.8 % Normal 0.0-2.5 [facility] Comment on above: Performed By: #### C BC, MORPH, CMP, TROPHS, ADIFF, GFR, LIP, MDW, ANEU #### [id number] [place], [place] [address] Eosinophil, Absolute 0.2 10 3/mcL Normal 0.0-0.7 [facility] Comment on above: Performed By: #### C BC, MORPH, CMP, TROPHS, ADIFF, GFR, LIP, MDW, ANEU #### [address] [address] Eosinophils/100 WBC (Bld) 1.1 % Normal 0.0-7.0 [facility] Comment on above: Performed By: #### C BC, MORPH, CMP, TROPHS, ADIFF, GFR, LIP, MDW, ANEU #### [address] [address] Lymphocyte, Absolute 1.7 10 3/mcL Normal 0.9-4.3 [facility] Comment on above: Performed By: #### C BC, MORPH, CMP, TROPHS, ADIFF, GFR, LIP, MDW, ANEU #### [address] [address] Lymphocytes/100 WBC (Bld) 11.5 % Low 20.0-40.0 [facility] Comment on above: Performed By: #### C BC, MORPH, CMP, TROPHS, ADIFF, GFR, LIP, MDW, ANEU #### [address] [address] Monocyte, Absolute 0.9 10 3/mcL Normal 0.1-1.4 [facility] Comment on above: Performed By: #### C BC, MORPH, CMP, TROPHS, ADIFF, GFR, LIP, MDW, ANEU #### [address] [address] Monocytes/100 WBC (Bld) 6.2 % Normal 2.0-13.0 [facility] Comment on above: Performed By: #### C BC, MORPH, CMP, TROPHS, ADIFF, GFR, LIP, MDW, ANEU #### [address] [address] Neutrophils/100 WBC (Bld) 80.4 % High 50.0-75.0 [facility] Comment on above: Performed By: #### C BC, MORPH, CMP, TROPHS, ADIFF, GFR, LIP, MDW, ANEU #### [address] [address] .GFRon 05-23-2024 GFR Non- 26 ml/min/1.73sqm Normal [facility] Comment on above: Result Comment: GFR Population [...] TROPHS, ADIFF, GFR, LIP, MDW, ANEU #### [address] [address] GFR 31 ml/min/1.73sqm Normal [facility] Comment on above: Result Comment: GFR Population [...] TROPHS, ADIFF, GFR, LIP, MDW, ANEU #### [address] [address] .MDWon 05-23-2024 Monocyte Distribution Width 18.96 Normal 0.00-20.00 [facility] Comment on above: Result Comment: For ED adult patients suspected of sepsis, MDW<=20.0 does not rule out sepsis or risk of sepsis Performed By: #### C BC, MORPH, CMP, TROPHS, ADIFF, GFR, LIP, MDW, ANEU #### [place] [address] .Morphon 05-23-2024 Platelet Estimate Normal Normal [facility] Comment on above: Performed By: #### C BC, MORPH, CMP, TROPHS, ADIFF, GFR, LIP, MDW, ANEU #### [place] [address] .NEUABSon 05-23-2024 Neutrophil, Absolute 11.7 10 3/mcL High 2.3-8.1 [facility] Comment on above: Performed By: #### C BC, MORPH, CMP, TROPHS, ADIFF, GFR, LIP, MDW, ANEU #### [place] [address] CBCon 05-23-2024 Erythrocyte distribution width (RBC) [Ratio] 15.3 % Normal 11.5-15.5 [facility] Comment on above: Performed By: #### C BC, MORPH, CMP, TROPHS, ADIFF, GFR, LIP, MDW, ANEU #### [place] [address] Hematocrit (Bld) [Volume fraction] 35.1 % Normal 34.0-46.0 [facility] Comment on above: Performed By: #### C BC, MORPH, CMP, TROPHS, ADIFF, GFR, LIP, MDW, ANEU #### [place] [address] Hgb 11.3 G/dL Low 12.0-16.0 [facility] Comment on above: Performed By: #### C BC, MORPH, CMP, TROPHS, ADIFF, GFR, LIP, MDW, ANEU #### [place] [address] MCH (RBC) [Entitic mass] 27.2 pg Normal 27.0-33.0 [facility] Comment on above: Performed By: #### C BC, MORPH, CMP, TROPHS, ADIFF, GFR, LIP, MDW, ANEU #### [address] [address] MCHC 32.3 G/dL Normal 32.0-36.0 [facility] Comment on above: Performed By: #### C BC, MORPH, CMP, TROPHS, ADIFF, GFR, LIP, MDW, ANEU #### [address] [address] MCV (RBC) [Entitic vol] 84.2 fL Normal 80.0-99.0 [facility] Comment on above: Performed By: #### C BC, MORPH, CMP, TROPHS, ADIFF, GFR, LIP, MDW, ANEU #### [address] [address] Platelet 229 10 3/mcL Normal 150-450 [facility] Comment on above: Performed By: #### C BC, MORPH, CMP, TROPHS, ADIFF, GFR, LIP, MDW, ANEU #### [address] [address] Platelet mean volume (Bld) [Entitic vol] 7.3 fL Normal 6.6-10.5 [facility] Comment on above: Performed By: #### C BC, MORPH, CMP, TROPHS, ADIFF, GFR, LIP, MDW, ANEU #### [address] [address] RBC 4.17 10 6/mcL Normal 4.10-5.30 [facility] Comment on above: Performed By: #### C BC, MORPH, CMP, TROPHS, ADIFF, GFR, LIP, MDW, ANEU #### [address] [address] WBC 14.5 10 3/mcL High 4.5-10.8 [facility] Comment on above: Performed By: #### C BC, MORPH, CMP, TROPHS, ADIFF, GFR, LIP, MDW, ANEU #### [address] [address] CMPon 05-23-2024 Albumin Level 2.7 G/dL Low 3.5-5.0 [facility] Comment on above: Order Comment: 05/23 20:12:51 EST hemolyzed. EH Performed By: #### C BC, MORPH, CMP, TROPHS, ADIFF, GFR, LIP, MDW, ANEU #### [address] [address] Albumin/Globulin [Mass ratio] 0.7 {ratio} Low 1.1-2.5 [facility] Comment on above: Order Comment: 05/23 20:12:51 EST hemolyzed. EH Performed By: #### C BC, MORPH, CMP, TROPHS, ADIFF, GFR, LIP, MDW, ANEU #### [address] [address] ALP [Catalytic activity/Vol] 128 U/L Normal 40-135 [facility] Comment on above: Order Comment: 05/23 20:12:51 EST hemolyzed. EH Performed By: #### C BC, MORPH, CMP, TROPHS, ADIFF, GFR, LIP, MDW, ANEU #### [address] [address] ALT [Catalytic activity/Vol] 22 U/L Normal 14-59 [facility] Comment on above: Order Comment: 05/23 20:12:51 EST hemolyzed. EH Performed By: #### C BC, MORPH, CMP, TROPHS, ADIFF, GFR, LIP, MDW, ANEU #### [address] [address] AST [Catalytic activity/Vol] 21 U/L Normal 10-40 [facility] Comment on above: Order Comment: 05/23 20:12:51 EST hemolyzed. EH Performed By: #### C BC, MORPH, CMP, TROPHS, ADIFF, GFR, LIP, MDW, ANEU #### [address] [address] Bili Total 0.9 mg/dL Normal 0.2-1.0 [facility] Comment on above: Order Comment: 05/23 20:12:51 EST hemolyzed. EH Result Comment: Use of this assay is not recommended for patients undergoing treatment with eltrombopag due to the potential for falsely elevated results. Performed By: #### C BC, MORPH, CMP, TROPHS, ADIFF, GFR, LIP, MDW, ANEU #### [address] [address] BUN/Creatinine Ratio 20 ratio Normal 7-27 [facility] Comment on above: Order Comment: 05/23 20:12:51 EST hemolyzed. EH Performed By: #### C BC, MORPH, CMP, TROPHS, ADIFF, GFR, LIP, MDW, ANEU #### [address] [address] Calcium [Mass/Vol] 8.7 mg/dL Normal 8.4-10.2 [facility] Comment on above: Order Comment: 05/23 20:12:51 EST hemolyzed. EH Performed By: #### C BC, MORPH, CMP, TROPHS, ADIFF, GFR, LIP, MDW, ANEU #### [address] [address] Chloride [Moles/Vol] 102 mmol/L Normal 98-107 [facility] Comment on above: Order Comment: 05/23 20:12:51 EST hemolyzed. EH Performed By: #### C BC, MORPH, CMP, TROPHS, ADIFF, GFR, LIP, MDW, ANEU #### [address] [address] CO2 [Moles/Vol] 24 mmol/L Normal 22-29 [facility] Comment on above: Order Comment: 05/23 20:12:51 EST hemolyzed. EH Performed By: #### C BC, MORPH, CMP, TROPHS, ADIFF, GFR, LIP, MDW, ANEU #### [address] [address] Creatinine [Mass/Vol] 2.02 mg/dL High 0.55-1.02 [facility] Comment on above: Order Comment: 05/23 20:12:51 EST hemolyzed. EH Result Comment: Test ing performed on Siemens Dimension EXL analyzer using a modified kinetic Breanne technique. Performed By: #### C BC, MORPH, CMP, TROPHS, ADIFF, GFR, LIP, MDW, ANEU #### [address] [address] Electrolyte Balance 8.0 mEq/L Normal 4.0-15.0 [facility] Comment on above: Order Comment: 05/23 20:12:51 EST hemolyzed. EH Performed By: #### C BC, MORPH, CMP, TROPHS, ADIFF, GFR, LIP, MDW, ANEU #### [address] [address] Globulin 4.0 G/dL Normal [facility] Comment on above: Order Comment: 05/23 20:12:51 EST hemolyzed. EH Performed By: #### C BC, MORPH, CMP, TROPHS, ADIFF, GFR, LIP, MDW, ANEU #### [address] [address] Glucose [Mass/Vol] 181 mg/dL High 70-105 [facility] Comment on above: Order Comment: 05/23 20:12:51 EST hemolyzed. EH Performed By: #### C BC, MORPH, CMP, TROPHS, ADIFF, GFR, LIP, MDW, ANEU #### [address] [address] Potassium [Moles/Vol] 5.2 mmol/L High 3.5-5.1 [facility] Comment on above: Order Comment: 05/23 20:12:51 EST hemolyzed. EH Performed By: #### C BC, MORPH, CMP, TROPHS, ADIFF, GFR, LIP, MDW, ANEU #### [address] [address] Sodium [Moles/Vol] 134 mmol/L Low 136-145 [facility] Comment on above: Order Comment: 05/23 20:12:51 EST hemolyzed. EH Performed By: #### C BC, MORPH, CMP, TROPHS, ADIFF, GFR, LIP, MDW, ANEU #### [address] [address] Total Protein 6.7 G/dL Normal 6.4-8.2 [facility] Comment on above: Order Comment: 05/23 20:12:51 EST hemolyzed. EH Performed By: #### C BC, MORPH, CMP, TROPHS, ADIFF, GFR, LIP, MDW, ANEU #### [address] [address] Urea nitrogen [Mass/Vol] 40 mg/dL High 7-18 [facility] Comment on above: Order Comment: 05/23 20:12:51 EST hemolyzed. EH Performed By: #### C BC, MORPH, CMP, TROPHS, ADIFF, GFR, LIP, MDW, ANEU #### [address] [address] LABORATORYOrdered By: SYSTEM SYSTEM on 05-23-2024 Albumin [...] ng/L Male: 0-76 ng/L Testing performed on [employer] using a homogeneous sandwich chemiluminescent immunoassay based on [employer] technology. LABORATORYOrdered By: Yohana Easley on 05-23-2024 Platelets LM Ql (Bld) Normal (05/23/24 8:06 PM) Normal [facility] Hematology S LIPon 05-23-2024 Lipase Level 56 U/L Normal 16-77 [facility] Comment on above: Performed By: #### C BC, MORPH, CMP, TROPHS, ADIFF, GFR, LIP, MDW, ANEU #### [place] [id number] TROPHSon 05-23-2024 High Sensitivity Troponin I 18 ng/L Normal 0-51 [facility] Comment on above: Result Comment: High Sensitive Troponin I Reference Ranges: Female: 0-51 ng/L Male: 0-76 ng/L Testing performed on [employer] using a homogeneous sandwich chemiluminescent immunoassay based on [employer] technology. Performed By: #### C BC, MORPH, CMP, TROPHS, ADIFF, GFR, LIP, MDW, ANEU #### [address] [place], [place] [address] Basic Metabolic Profile (BMP )on 05-06-2024 BUN Normal 7-18 [facility] Comment on above: Result Comment: Canc elled via OM: Order cancelled - Patient discharged Performed By: #### L 100.0100, L500.2500 ####[facility] [address] [place], [address] BUN/CRE Normal -20 [facility] Comment on above: Result Comment: Canc elled via OM: Order cancelled - Patient discharged Performed By: #### L 100.0100, L500.2500 ####[facility] [address] [place], [address] CA,Total Normal 8.5-10.1 [facility] Comment on above: Result Comment: Canc elled via OM: Order cancelled - Patient discharged Performed By: #### L 100.0100, L500.2500 ####[facility] [address] [place], [address] CL Normal 98-107 [facility] Comment on above: Result Comment: Canc elled via OM: Order cancelled - Patient discharged Performed By: #### L 100.0100, L500.2500 ####[facility] [address] [place], [address] CO2 Normal 21.0-32.0 [facility] Comment on above: Result Comment: Canc elled via OM: Order cancelled - Patient discharged Performed By: #### L 100.0100, L500.2500 ####[facility] [address] [place], [address] CREAT,SERUM Normal 0.55-1.02 [facility] Comment on above: Result Comment: Canc elled via OM: Order cancelled - Patient discharged Performed By: #### L 100.0100, L500.2500 ####[facility] [address] [place], [address] EST GFR Normal >60 [facility] Comment on above: Result Comment: Canc elled via OM: Order cancelled - Patient discharged Performed By: #### L 100.0100, L500.2500 ####[facility] [address] [place], [address] EST GFR - AA Normal >60 [facility] Comment on above: Result Comment: Canc elled via OM: Order cancelled - Patient discharged Performed By: #### L 100.0100, L500.2500 ####[facility] [address] [place], [address] GAP Normal 5-15 [facility] Comment on above: Result Comment: Canc elled via OM: Order cancelled - Patient discharged Performed By: #### L 100.0100, L500.2500 ####[facility] [address] [place], [address] GLU Normal 74-106 [facility] Comment on above: Result Comment: Canc elled via OM: Order cancelled - Patient discharged Performed By: #### L 100.0100, L500.2500 ####[facility] [address] [place], [address] Potassium Normal 3.5-5.1 [facility] Comment on above: Result Comment: Canc elled via OM: Order cancelled - Patient discharged Performed By: #### L 100.0100, L500.2500 ####[facility] [address] [place], [address] Basic Metabolic Profile (BMP) Normal 136-145 [facility] Comment on above: Result Comment: Canc elled via OM: Order cancelled - Patient discharged Performed By: #### L 100.0100, L500.2500 ####[facility] [address] [place], [address] CBC W/Diff, Automatedon 12-0 Absolute Neut Normal 2.0-7.7 [facility] Comment on above: Result Comment: Canc elled via OM: Order cancelled - Patient discharged Performed By: #### L 100.0100, L500.2500 ####[facility] [address] [place], [address] HCT Normal 37-47 [facility] Comment on above: Result Comment: Canc elled via OM: Order cancelled - Patient discharged Performed By: #### L 100.0100, L500.2500 ####[facility] [address] [place], [address] HGB Normal 12.0-15.0 [facility] Comment on above: Result Comment: Canc elled via OM: Order cancelled - Patient discharged Performed By: #### L 100.0100, L500.2500 ####[facility] [address] [place], [address] MCH Normal 27.0-32.0 [facility] Comment on above: Result Comment: Canc elled via OM: Order cancelled - Patient discharged Performed By: #### L 100.0100, L500.2500 ####[facility] [address] [place], [address] MCHC Normal 32-36 [facility] Comment on above: Result Comment: Canc elled via OM: Order cancelled - Patient discharged Performed By: #### L 100.0100, L500.2500 ####[facility] [address] [place], [address] MCV Normal 81-99 [facility] Comment on above: Result Comment: Canc elled via OM: Order cancelled - Patient discharged Performed By: #### L 100.0100, L500.2500 ####[facility] [address] [place], [address] NEUT% Normal 47-70 [facility] Comment on above: Result Comment: Canc elled via OM: Order cancelled - Patient discharged Performed By: #### L 100.0100, L500.2500 ####[facility] [address] [place], [address] PLT Normal 150-450 [facility] Comment on above: Result Comment: Canc elled via OM: Order cancelled - Patient discharged Performed By: #### L 100.0100, L500.2500 ####[facility] [address] [place], [address] RBC Normal 4.2-5.4 [facility] Comment on above: Result Comment: Canc elled via OM: Order cancelled - Patient discharged Performed By: #### L 100.0100, L500.2500 ####[facility] [address] [place], [address] RDW CV Normal 11.6-14.6 [facility] Comment on above: Result Comment: Canc elled via OM: Order cancelled - Patient discharged Performed By: #### L 100.0100, L500.2500 ####[facility] [address] [place], [address] RDW SD Normal 35.1-43.9 [facility] Comment on above: Result Comment: Canc elled via OM: Order cancelled - Patient discharged Performed By: #### L 100.0100, L500.2500 ####[facility] [address] [place], [address] WBC Normal 4.4-11.0 [facility] Comment on above: Result Comment: Canc elled via OM: Order cancelled - Patient discharged Performed By: #### L 100.0100, L500.2500 ####[facility] [address] [place], [address] Basic Metabolic Profile (BMP )on 05-05-2024 BUN Normal 7-18 [facility] Comment on above: Result Comment: Canc elled via OM: Order cancelled - Patient discharged Performed By: #### L 100.0100, L500.2500 ####[facility] [address] [place], [address] BUN/CRE Normal 10-20 [facility] Comment on above: Result Comment: Canc elled via OM: Order cancelled - Patient discharged Performed By: #### L 100.0100, L500.2500 ####[facility] [address] [place], [address] CA,Total Normal 8.5-10.1 [facility] Comment on above: Result Comment: Canc elled via OM: Order cancelled - Patient discharged Performed By: #### L 100.0100, L500.2500 ####[facility] [address] [place], [address] CL Normal 98-107 [facility] Comment on above: Result Comment: Canc elled via OM: Order cancelled - Patient discharged Performed By: #### L 100.0100, L500.2500 ####[facility] [address] [place], [address] CO2 Normal 21.0-32.0 [facility] Comment on above: Result Comment: Canc elled via OM: Order cancelled - Patient discharged Performed By: #### L 100.0100, L500.2500 ####[facility] [address] [place], [address] CREAT,SERUM Normal 0.55-1.02 [facility] Comment on above: Result Comment: Canc elled via OM: Order cancelled - Patient discharged Performed By: #### L 100.0100, L500.2500 ####[facility] [address] [place], [address] EST GFR Normal >60 [facility] Comment on above: Result Comment: Canc elled via OM: Order cancelled - Patient discharged Performed By: #### L 100.0100, L500.2500 ####[facility] [address] [place], [address] EST GFR - AA Normal >60 [facility] Comment on above: Result Comment: Canc elled via OM: Order cancelled - Patient discharged Performed By: #### L 100.0100, L500.2500 ####[facility] [address] [place], [address] GAP Normal 5-15 [facility] Comment on above: Result Comment: Canc elled via OM: Order cancelled - Patient discharged Performed By: #### L 100.0100, L500.2500 ####[facility] [address] [place], [address] GLU Normal 74-106 [facility] Comment on above: Result Comment: Canc elled via OM: Order cancelled - Patient discharged Performed By: #### L 100.0100, L500.2500 ####[facility] [address] [place], [address] Potassium Normal 3.5-5.1 [facility] Comment on above: Result Comment: Canc elled via OM: Order cancelled - Patient discharged Performed By: #### L 100.0100, L500.2500 ####[facility] [address] [place], [address] Basic Metabolic Profile (BMP) Normal 136-145 [facility] Comment on above: Result Comment: Canc elled via OM: Order cancelled - Patient discharged Performed By: #### L 100.0100, L500.2500 ####[facility] [address] [place], [address] CBC W/Diff, Automatedon 12-0 Absolute Neut Normal 2.0-7.7 [facility] Comment on above: Result Comment: Canc elled via OM: Order cancelled - Patient discharged Performed By: #### L 100.0100, L500.2500 ####[facility] [address] [place], [address] HCT Normal 37-47 [facility] Comment on above: Result Comment: Canc elled via OM: Order cancelled - Patient discharged Performed By: #### L 100.0100, L500.2500 ####[facility] [address] [place], [address] HGB Normal 12.0-15.0 [facility] Comment on above: Result Comment: Canc elled via OM: Order cancelled - Patient discharged Performed By: #### L 100.0100, L500.2500 ####[facility] [address] [place], [address] MCH Normal 27.0-32.0 [facility] Comment on above: Result Comment: Canc elled via OM: Order cancelled - Patient discharged Performed By: #### L 100.0100, L500.2500 ####[facility] [address] [place], [address] MCHC Normal 32-36 [facility] Comment on above: Result Comment: Canc elled via OM: Order cancelled - Patient discharged Performed By: #### L 100.0100, L500.2500 ####[facility] [address] [place], [address] MCV Normal 81-99 [facility] Comment on above: Result Comment: Canc elled via OM: Order cancelled - Patient discharged Performed By: #### L 100.0100, L500.2500 ####[facility] [address] [place], [address] NEUT% Normal 47-70 [facility] Comment on above: Result Comment: Canc elled via OM: Order cancelled - Patient discharged Performed By: #### L 100.0100, L500.2500 ####[facility] [address] [place], [address] PLT Normal 150-450 [facility] Comment on above: Result Comment: Canc elled via OM: Order cancelled - Patient discharged Performed By: #### L 100.0100, L500.2500 ####[facility] [address] [place], [address] RBC Normal 4.2-5.4 [facility] Comment on above: Result Comment: Canc elled via OM: Order cancelled - Patient discharged Performed By: #### L 100.0100, L500.2500 ####[facility] [address] [place], [address] RDW CV Normal 11.6-14.6 [facility] Comment on above: Result Comment: Canc elled via OM: Order cancelled - Patient discharged Performed By: #### L 100.0100, L500.2500 ####[facility] [address] [place], [address] RDW SD Normal 35.1-43.9 [facility] Comment on above: Result Comment: Canc elled via OM: Order cancelled - Patient discharged Performed By: #### L 100.0100, L500.2500 ####[facility] [address] [place], [address] WBC Normal 4.4-11.0 [facility] Comment on above: Result Comment: Canc elled via OM: Order cancelled - Patient discharged Performed By: #### L 100.0100, L500.2500 ####[facility] [address] [place], [address] Basic Metabolic Profile (BMP )on 05-04-2024 BUN Normal 7-18 [facility] Comment on above: Result Comment: Canc elled via OM: Order cancelled - Patient discharged Performed By: #### L 100.0100, L500.2500 ####[facility] [address] [place], [address] BUN/CRE Normal 10-20 [facility] Comment on above: Result Comment: Canc elled via OM: Order cancelled - Patient discharged Performed By: #### L 100.0100, L500.2500 ####[facility] [address] [place], [address] CA,Total Normal 8.5-10.1 [facility] Comment on above: Result Comment: Canc elled via OM: Order cancelled - Patient discharged Performed By: #### L 100.0100, L500.2500 ####[facility] [address] [place], [address] CL Normal 98-107 [facility] Comment on above: Result Comment: Canc elled via OM: Order cancelled - Patient discharged Performed By: #### L 100.0100, L500.2500 ####[facility] [address] [place], [address] CO2 Normal 21.0-32.0 [facility] Comment on above: Result Comment: Canc elled via OM: Order cancelled - Patient discharged Performed By: #### L 100.0100, L500.2500 ####[facility] [address] [place], [address] CREAT,SERUM Normal 0.55-1.02 [facility] Comment on above: Result Comment: Canc elled via OM: Order cancelled - Patient discharged Performed By: #### L 100.0100, L500.2500 ####[facility] [address] [place], [address] EST GFR Normal >60 [facility] Comment on above: Result Comment: Canc elled via OM: Order cancelled - Patient discharged Performed By: #### L 100.0100, L500.2500 ####[facility] [address] [place], [address] EST GFR - AA Normal >60 [facility] Comment on above: Result Comment: Canc elled via OM: Order cancelled - Patient discharged Performed By: #### L 100.0100, L500.2500 ####[facility] [address] [place], [address] GAP Normal 5-15 [facility] Comment on above: Result Comment: Canc elled via OM: Order cancelled - Patient discharged Performed By: #### L 100.0100, L500.2500 ####[facility] [address] [place], [address] GLU Normal 74-106 [facility] Comment on above: Result Comment: Canc elled via OM: Order cancelled - Patient discharged Performed By: #### L 100.0100, L500.2500 ####[facility] [address] [place], [address] Potassium Normal 3.5-5.1 [facility] Comment on above: Result Comment: Canc elled via OM: Order cancelled - Patient discharged Performed By: #### L 100.0100, L500.2500 ####[facility] [address] [place], [address] Basic Metabolic Profile (BMP) Normal 136-145 [facility] Comment on above: Result Comment: Canc elled via OM: Order cancelled - Patient discharged Performed By: #### L 100.0100, L500.2500 ####[facility] [address] [place], [address] CBC W/Diff, Automatedon 12-0 Absolute Neut Normal 2.0-7.7 [facility] Comment on above: Result Comment: Canc elled via OM: Order cancelled - Patient discharged Performed By: #### L 100.0100, L500.2500 ####[facility] [address] [place], [address] HCT Normal 37-47 [facility] Comment on above: Result Comment: Canc elled via OM: Order cancelled - Patient discharged Performed By: #### L 100.0100, L500.2500 ####[facility] [address] [place], [address] HGB Normal 12.0-15.0 [facility] Comment on above: Result Comment: Canc elled via OM: Order cancelled - Patient discharged Performed By: #### L 100.0100, L500.2500 ####[facility] [address] [place], [address] MCH Normal 27.0-32.0 [facility] Comment on above: Result Comment: Canc elled via OM: Order cancelled - Patient discharged Performed By: #### L 100.0100, L500.2500 ####[facility] [address] [place], [address] MCHC Normal 32-36 [facility] Comment on above: Result Comment: Canc elled via OM: Order cancelled - Patient discharged Performed By: #### L 100.0100, L500.2500 ####[facility] [address] [place], [address] MCV Normal 81-99 [facility] Comment on above: Result Comment: Canc elled via OM: Order cancelled - Patient discharged Performed By: #### L 100.0100, L500.2500 ####[facility] [address] [place], [address] NEUT% Normal 47-70 [facility] Comment on above: Result Comment: Canc elled via OM: Order cancelled - Patient discharged Performed By: #### L 100.0100, L500.2500 ####[facility] [address] [place], [address] PLT Normal 150-450 [facility] Comment on above: Result Comment: Canc elled via OM: Order cancelled - Patient discharged Performed By: #### L 100.0100, L500.2500 ####[facility] [address] [place], [address] RBC Normal 4.2-5.4 [facility] Comment on above: Result Comment: Canc elled via OM: Order cancelled - Patient discharged Performed By: #### L 100.0100, L500.2500 ####[facility] [address] [place], [address] RDW CV Normal 11.6-14.6 [facility] Comment on above: Result Comment: Canc elled via OM: Order cancelled - Patient discharged Performed By: #### L 100.0100, L500.2500 ####[facility] [address] [place], [address] RDW SD Normal 35.1-43.9 [facility] Comment on above: Result Comment: Canc elled via OM: Order cancelled - Patient discharged Performed By: #### L 100.0100, L500.2500 ####[facility] [address] [place], [address] WBC Normal 4.4-11.0 [facility] Comment on above: Result Comment: Canc elled via OM: Order cancelled - Patient discharged Performed By: #### L 100.0100, L500.2500 ####[facility] [address] [place], [address] Basic Metabolic Profile (BMP )on 05-03-2024 BUN Normal 7-18 [facility] Comment on above: Result Comment: Canc elled via OM: Order cancelled - Patient discharged Performed By: #### L 500.2500, L100.0100 ####[facility] [address] [place], [address] BUN/CRE Normal 10-20 [facility] Comment on above: Result Comment: Canc elled via OM: Order cancelled - Patient discharged Performed By: #### L 500.2500, L100.0100 ####[facility] [address] [place], [address] CA,Total Normal 8.5-10.1 [facility] Comment on above: Result Comment: Canc elled via OM: Order cancelled - Patient discharged Performed By: #### L 500.2500, L100.0100 ####[facility] [address] [place], [address] CL Normal 98-107 [facility] Comment on above: Result Comment: Canc elled via OM: Order cancelled - Patient discharged Performed By: #### L 500.2500, L100.0100 ####[facility] [address] [place], [address] CO2 Normal 21.0-32.0 [facility] Comment on above: Result Comment: Canc elled via OM: Order cancelled - Patient discharged Performed By: #### L 500.2500, L100.0100 ####[facility] [address] [place], [address] CREAT,SERUM Normal 0.55-1.02 [facility] Comment on above: Result Comment: Canc elled via OM: Order cancelled - Patient discharged Performed By: #### L 500.2500, L100.0100 ####[facility] [address] [place], [address] EST GFR Normal >60 [facility] Comment on above: Result Comment: Canc elled via OM: Order cancelled - Patient discharged Performed By: #### L 500.2500, L100.0100 ####[facility] [address] [place], [address] EST GFR - AA Normal >60 [facility] Comment on above: Result Comment: Canc elled via OM: Order cancelled - Patient discharged Performed By: #### L 500.2500, L100.0100 ####[facility] [address] [place], [address] GAP Normal 5-15 [facility] Comment on above: Result Comment: Canc elled via OM: Order cancelled - Patient discharged Performed By: #### L 500.2500, L100.0100 ####[facility] [address] [place], [address] GLU Normal 74-106 [facility] Comment on above: Result Comment: Canc elled via OM: Order cancelled - Patient discharged Performed By: #### L 500.2500, L100.0100 ####[facility] [address] [place], [address] Potassium Normal 3.5-5.1 [facility] [facility] Comment on above: Result Comment: Canc elled via OM: Order cancelled - Patient discharged Performed By: #### L 500.2500, L100.0100 ####[facility] [address] [place], [address] Basic Metabolic Profile (BMP) Normal 136-145 [facility] Comment on above: Result Comment: Canc elled via OM: Order cancelled - Patient discharged Performed By: #### L 500.2500, L100.0100 ####[facility] [address] [place], [address] CBC W/Diff, Automatedon 11-3 0-2023 Absolute Neut Normal 2.0-7.7 [facility] Comment on above: Result Comment: Canc elled via OM: Order cancelled - Patient discharged Performed By: #### L 500.2500, L100.0100 ####[facility] [address] [place], [address] HCT Normal 37-47 [facility] Comment on above: Result Comment: Canc elled via OM: Order cancelled - Patient discharged Performed By: #### L 500.2500, L100.0100 ####[facility] [address] [place], [address] HGB Normal 12.0-15.0 [facility] Comment on above: Result Comment: Canc elled via OM: Order cancelled - Patient discharged Performed By: #### L 500.2500, L100.0100 ####[facility] [address] [place], [address] MCH Normal 27.0-32.0 [facility] Comment on above: Result Comment: Canc elled via OM: Order cancelled - Patient discharged Performed By: #### L 500.2500, L100.0100 ####[facility] [address] [place], [address] MCHC Normal 32-36 [facility] Comment on above: Result Comment: Canc elled via OM: Order cancelled - Patient discharged Performed By: #### L 500.2500, L100.0100 ####[facility] [address] [place], [address] MCV Normal 81-99 [facility] Comment on above: Result Comment: Canc elled via OM: Order cancelled - Patient discharged Performed By: #### L 500.2500, L100.0100 ####[facility] [address] [place], [address] NEUT% Normal 47-70 [facility] Comment on above: Result Comment: Canc elled via OM: Order cancelled - Patient discharged Performed By: #### L 500.2500, L100.0100 ####[facility] [address] [place], [address] PLT Normal 150-450 [facility] Comment on above: Result Comment: Canc elled via OM: Order cancelled - Patient discharged Performed By: #### L 500.2500, L100.0100 ####[facility] [address] [place], [address] RBC Normal 4.2-5.4 [facility] Comment on above: Result Comment: Canc elled via OM: Order cancelled - Patient discharged Performed By: #### L 500.2500, L100.0100 ####[facility] [address] [place], [address] RDW CV Normal 11.6-14.6 [facility] Comment on above: Result Comment: Canc elled via OM: Order cancelled - Patient discharged Performed By: #### L 500.2500, L100.0100 ####[facility] [address] [place], [address] RDW SD Normal 35.1-43.9 [facility] Comment on above: Result Comment: Canc elled via OM: Order cancelled - Patient discharged Performed By: #### L 500.2500, L100.0100 ####[facility] [address] [place], [address] WBC Normal 4.4-11.0 [facility] Comment on above: Result Comment: Canc elled via OM: Order cancelled - Patient discharged Performed By: #### L 500.2500, L100.0100 ####[facility] [address] [place], [address] Basic Metabolic Profile (BMP )on 05-02-2024 BUN Normal 7-18 [facility] Comment on above: Result Comment: Canc elled via OM: Order cancelled - Patient discharged Performed By: #### L 500.2500, L100.0100 ####[facility] [address] [place], [address] BUN/CRE Normal 10-20 [facility] Comment on above: Result Comment: Canc elled via OM: Order cancelled - Patient discharged Performed By: #### L 500.2500, L100.0100 ####[facility] [address] [place], [address] CA,Total Normal 8.5-10.1 [facility] Comment on above: Result Comment: Canc elled via OM: Order cancelled - Patient discharged Performed By: #### L 500.2500, L100.0100 ####[facility] [address] [place], [address] CL Normal 98-107 [facility] Comment on above: Result Comment: Canc elled via OM: Order cancelled - Patient discharged Performed By: #### L 500.2500, L100.0100 ####[facility] [address] [place], [address] CO2 Normal 21.0-32.0 [facility] Comment on above: Result Comment: Canc elled via OM: Order cancelled - Patient discharged Performed By: #### L 500.2500, L100.0100 ####[facility] [address] [place], [address] CREAT,SERUM Normal 0.55-1.02 [facility] Comment on above: Result Comment: Canc elled via OM: Order cancelled - Patient discharged Performed By: #### L 500.2500, L100.0100 ####[facility] [address] [place], [address] EST GFR Normal >60 [facility] Comment on above: Result Comment: Canc elled via OM: Order cancelled - Patient discharged Performed By: #### L 500.2500, L100.0100 ####[facility] [address] [place], [address] EST GFR - AA Normal >60 [facility] Comment on above: Result Comment: Canc elled via OM: Order cancelled - Patient discharged Performed By: #### L 500.2500, L100.0100 ####[facility] [address] [place], [address] GAP Normal 5-15 [facility] Comment on above: Result Comment: Canc elled via OM: Order cancelled - Patient discharged Performed By: #### L 500.2500, L100.0100 ####[facility] [address] [place], [address] GLU Normal 74-106 [facility] Comment on above: Result Comment: Canc elled via OM: Order cancelled - Patient discharged Performed By: #### L 500.2500, L100.0100 ####[facility] [address] [place], [address] Potassium Normal 3.5-5.1 [facility] Comment on above: Result Comment: Canc elled via OM: Order cancelled - Patient discharged Performed By: #### L 500.2500, L100.0100 ####[facility] [address] [place], [address] Basic Metabolic Profile (BMP) Normal 136-145 [facility] Comment on above: Result Comment: Canc elled via OM: Order cancelled - Patient discharged Performed By: #### L 500.2500, L100.0100 ####[facility] [address] [place], [address] CBC W/Diff, Automatedon 11-2 Absolute Neut Normal 2.0-7.7 [facility] Comment on above: Result Comment: Canc elled via OM: Order cancelled - Patient discharged Performed By: #### L 500.2500, L100.0100 ####[facility] [address] [place], [address] HCT Normal 37-47 [facility] Comment on above: Result Comment: Canc elled via OM: Order cancelled - Patient discharged Performed By: #### L 500.2500, L100.0100 ####[facility] [address] [place], [address] HGB Normal 12.0-15.0 [facility] Comment on above: Result Comment: Canc elled via OM: Order cancelled - Patient discharged Performed By: #### L 500.2500, L100.0100 ####[facility] [address] [place], [address] MCH Normal 27.0-32.0 [facility] Comment on above: Result Comment: Canc elled via OM: Order cancelled - Patient discharged Performed By: #### L 500.2500, L100.0100 ####[facility] [address] [place], [address] MCHC Normal 32-36 [facility] Comment on above: Result Comment: Canc elled via OM: Order cancelled - Patient discharged Performed By: #### L 500.2500, L100.0100 ####[facility] [address] [place], [address] MCV Normal 81-99 [facility] Comment on above: Result Comment: Canc elled via OM: Order cancelled - Patient discharged Performed By: #### L 500.2500, L100.0100 ####[facility] [address] [place], [address] NEUT% Normal 47-70 [facility] Comment on above: Result Comment: Canc elled via OM: Order cancelled - Patient discharged Performed By: #### L 500.2500, L100.0100 ####[facility] [address] [place], [address] PLT Normal 150-450 [facility] Comment on above: Result Comment: Canc elled via OM: Order cancelled - Patient discharged Performed By: #### L 500.2500, L100.0100 ####[facility] [address] [place], [address] RBC Normal 4.2-5.4 [facility] Comment on above: Result Comment: Canc elled via OM: Order cancelled - Patient discharged Performed By: #### L 500.2500, L100.0100 ####[facility] [address] [place], [address] RDW CV Normal 11.6-14.6 [facility] Comment on above: Result Comment: Canc elled via OM: Order cancelled - Patient discharged Performed By: #### L 500.2500, L100.0100 ####[facility] [address] [place], [address] RDW SD Normal 35.1-43.9 [facility] Comment on above: Result Comment: Canc elled via OM: Order cancelled - Patient discharged Performed By: #### L 500.2500, L100.0100 ####[facility] [address] [place], [address] WBC Normal 4.4-11.0 [facility] Comment on above: Result Comment: Canc elled via OM: Order cancelled - Patient discharged Performed By: #### L 500.2500, L100.0100 ####[facility] [address] [place], [address] Basic Metabolic Profile (BMP )on 05-01-2024 BUN Normal 7-18 [facility] Comment on above: Result Comment: Canc elled via OM: Order cancelled - Patient discharged Performed By: #### L 100.0100, L500.2500 ####[facility] [address] [place], [address] BUN/CRE Normal 10-20 [facility] Comment on above: Result Comment: Canc elled via OM: Order cancelled - Patient discharged Performed By: #### L 100.0100, L500.2500 ####[facility] [address] [place], [address] CA,Total Normal 8.5-10.1 [facility] Comment on above: Result Comment: Canc elled via OM: Order cancelled - Patient discharged Performed By: #### L 100.0100, L500.2500 ####[facility] [address] [place], [address] CL Normal 98-107 [facility] Comment on above: Result Comment: Canc elled via OM: Order cancelled - Patient discharged Performed By: #### L 100.0100, L500.2500 ####[facility] [address] [place], [address] CO2 Normal 21.0-32.0 [facility] Comment on above: Result Comment: Canc elled via OM: Order cancelled - Patient discharged Performed By: #### L 100.0100, L500.2500 ####[facility] [address] [place], [address] CREAT,SERUM Normal 0.55-1.02 [facility] Comment on above: Result Comment: Canc elled via OM: Order cancelled - Patient discharged Performed By: #### L 100.0100, L500.2500 ####[facility] [address] [place], [address] EST GFR Normal >60 [facility] Comment on above: Result Comment: Canc elled via OM: Order cancelled - Patient discharged Performed By: #### L 100.0100, L500.2500 ####[facility] [address] [place], [address] EST GFR - AA Normal >60 [facility] Comment on above: Result Comment: Canc elled via OM: Order cancelled - Patient discharged Performed By: #### L 100.0100, L500.2500 ####[facility] [address] [place], [address] GAP Normal 5-15 [facility] Comment on above: Result Comment: Canc elled via OM: Order cancelled - Patient discharged Performed By: #### L 100.0100, L500.2500 ####[facility] [address] [place], [address] GLU Normal 74-106 [facility] Comment on above: Result Comment: Canc elled via OM: Order cancelled - Patient discharged Performed By: #### L 100.0100, L500.2500 ####[facility] [address] [place], [address] Potassium Normal 3.5-5.1 [facility] Comment on above: Result Comment: Canc elled via OM: Order cancelled - Patient discharged Performed By: #### L 100.0100, L500.2500 ####[facility] [address] [place], [address] Basic Metabolic Profile (BMP) Normal 136-145 [facility] Comment on above: Result Comment: Canc elled via OM: Order cancelled - Patient discharged Performed By: #### L 100.0100, L500.2500 ####[facility] [address] [place], [address] CBC W/Diff, Automatedon - Absolute Neut Normal 2.0-7.7 [facility] Comment on above: Result Comment: Canc elled via OM: Order cancelled - Patient discharged Performed By: #### L 100.0100, L500.2500 ####[facility] [address] [place], [address] HCT Normal 37-47 [facility] Comment on above: Result Comment: Canc elled via OM: Order cancelled - Patient discharged Performed By: #### L 100.0100, L500.2500 ####[facility] [address] [place], [address] HGB Normal 12.0-15.0 [facility] Comment on above: Result Comment: Canc elled via OM: Order cancelled - Patient discharged Performed By: #### L 100.0100, L500.2500 ####[facility] [address] [place], [address] MCH Normal 27.0-32.0 [facility] Comment on above: Result Comment: Canc elled via OM: Order cancelled - Patient discharged Performed By: #### L 100.0100, L500.2500 ####[facility] [address] [place], [address] MCHC Normal 32-36 [facility] Comment on above: Result Comment: Canc elled via OM: Order cancelled - Patient discharged Performed By: #### L 100.0100, L500.2500 ####[facility] [address] [place], [address] MCV Normal 81-99 [facility] Comment on above: Result Comment: Canc elled via OM: Order cancelled - Patient discharged Performed By: #### L 100.0100, L500.2500 ####[facility] [address] [place], [address] NEUT% Normal 47-70 [facility] Comment on above: Result Comment: Canc elled via OM: Order cancelled - Patient discharged Performed By: #### L 100.0100, L500.2500 ####[facility] [address] [place], [address] PLT Normal 150-450 [facility] Comment on above: Result Comment: Canc elled via OM: Order cancelled - Patient discharged Performed By: #### L 100.0100, L500.2500 ####[facility] [address] [place], [address] RBC Normal 4.2-5.4 [facility] Comment on above: Result Comment: Canc elled via OM: Order cancelled - Patient discharged Performed By: #### L 100.0100, L500.2500 ####[facility] [address] [place], [address] RDW CV Normal 11.6-14.6 [facility] Comment on above: Result Comment: Canc elled via OM: Order cancelled - Patient discharged Performed By: #### L 100.0100, L500.2500 ####[facility] [address] [place], [address] RDW SD Normal 35.1-43.9 [facility] Comment on above: Result Comment: Canc elled via OM: Order cancelled - Patient discharged Performed By: #### L 100.0100, L500.2500 ####[facility] [address] [place], [address] WBC Normal 4.4-11.0 [facility] Comment on above: Result Comment: Canc elled via OM: Order cancelled - Patient discharged Performed By: #### L 100.0100, L500.2500 ####[facility] [address] [place], [address] Basic Metabolic Profile (BMP )on 04-30-2024 BUN Normal 7-18 [facility] Comment on above: Result Comment: Canc elled via OM: Order cancelled - Patient discharged Performed By: #### L 500.2500, L100.0100 ####[facility] [address] [place], [address] BUN/CRE Normal 10-20 [facility] Comment on above: Result Comment: Canc elled via OM: Order cancelled - Patient discharged Performed By: #### L 500.2500, L100.0100 ####[facility] [address] [place], [address] CA,Total Normal 8.5-10.1 [facility] Comment on above: Result Comment: Canc elled via OM: Order cancelled - Patient discharged Performed By: #### L 500.2500, L100.0100 ####[facility] [address] [place], [address] CL Normal 98-107 [facility] Comment on above: Result Comment: Canc elled via OM: Order cancelled - Patient discharged Performed By: #### L 500.2500, L100.0100 ####[facility] [address] [place], [address] CO2 Normal 21.0-32.0 [facility] Comment on above: Result Comment: Canc elled via OM: Order cancelled - Patient discharged Performed By: #### L 500.2500, L100.0100 ####[facility] [address] [place], [address] CREAT,SERUM Normal 0.55-1.02 [facility] Comment on above: Result Comment: Canc elled via OM: Order cancelled - Patient discharged Performed By: #### L 500.2500, L100.0100 ####[facility] [address] [place], [address] EST GFR Normal >60 [facility] Comment on above: Result Comment: Canc elled via OM: Order cancelled - Patient discharged Performed By: #### L 500.2500, L100.0100 ####[facility] [address] [place], [address] EST GFR - AA Normal >60 [facility] Comment on above: Result Comment: Canc elled via OM: Order cancelled - Patient discharged Performed By: #### L 500.2500, L100.0100 ####[facility] [address] [place], [address] GAP Normal 5-15 [facility] Comment on above: Result Comment: Canc elled via OM: Order cancelled - Patient discharged Performed By: #### L 500.2500, L100.0100 ####[facility] [address] [place], [address] GLU Normal 74-106 [facility] Comment on above: Result Comment: Canc elled via OM: Order cancelled - Patient discharged Performed By: #### L 500.2500, L100.0100 ####[facility] [address] [place], [address] Potassium Normal 3.5-5.1 [facility] Comment on above: Result Comment: Canc elled via OM: Order cancelled - Patient discharged Performed By: #### L 500.2500, L100.0100 ####[facility] [address] [place], [address] Basic Metabolic Profile (BMP) Normal 136-145 [facility] Comment on above: Result Comment: Canc elled via OM: Order cancelled - Patient discharged Performed By: #### L 500.2500, L100.0100 ####[facility] [address] [place], [address] CBC W/Diff, Automatedon 11- Absolute Neut Normal 2.0-7.7 [facility] Comment on above: Result Comment: Canc elled via OM: Order cancelled - Patient discharged Performed By: #### L 500.2500, L100.0100 ####[facility] [address] [place], [address] HCT Normal 37-47 [facility] Comment on above: Result Comment: Canc elled via OM: Order cancelled - Patient discharged Performed By: #### L 500.2500, L100.0100 ####[facility] [address] [place], [address] HGB Normal 12.0-15.0 [facility] Comment on above: Result Comment: Canc elled via OM: Order cancelled - Patient discharged Performed By: #### L 500.2500, L100.0100 ####[facility] [address] [place], [address] MCH Normal 27.0-32.0 [facility] Comment on above: Result Comment: Canc elled via OM: Order cancelled - Patient discharged Performed By: #### L 500.2500, L100.0100 ####[facility] [address] [place], [address] MCHC Normal 32-36 [facility] Comment on above: Result Comment: Canc elled via OM: Order cancelled - Patient discharged Performed By: #### L 500.2500, L100.0100 ####[facility] [address] [place], [address] MCV Normal 81-99 [facility] Comment on above: Result Comment: Canc elled via OM: Order cancelled - Patient discharged Performed By: #### L 500.2500, L100.0100 ####[facility] [address] [place], [address] NEUT% Normal 47-70 [facility] Comment on above: Result Comment: Canc elled via OM: Order cancelled - Patient discharged Performed By: #### L 500.2500, L100.0100 ####[facility] [address] [place], [address] PLT Normal 150-450 [facility] Comment on above: Result Comment: Canc elled via OM: Order cancelled - Patient discharged Performed By: #### L 500.2500, L100.0100 ####[facility] [address] [place], [address] RBC Normal 4.2-5.4 [facility] Comment on above: Result Comment: Canc elled via OM: Order cancelled - Patient discharged Performed By: #### L 500.2500, L100.0100 ####[facility] [address] [place], [address] RDW CV Normal 11.6-14.6 [facility] Comment on above: Result Comment: Canc elled via OM: Order cancelled - Patient discharged Performed By: #### L 500.2500, L100.0100 ####[facility] [address] [place], [address] RDW SD Normal 35.1-43.9 [facility] Comment on above: Result Comment: Canc elled via OM: Order cancelled - Patient discharged Performed By: #### L 500.2500, L100.0100 ####[facility] [address] [place], [address] WBC Normal 4.4-11.0 [facility] Comment on above: Result Comment: Canc elled via OM: Order cancelled - Patient discharged Performed By: #### L 500.2500, L100.0100 ####[facility] [address] [place], [address] Absolute neutrophil countOrd ered By: Talisha Boykin on 04-29-2024 Absolute neutrophil count 7.8 X10^3/uL High 2.0-7.7 [facility] Basic Metabolic Profile (BMP )on 04-29-2024 BUN/CRE 31.5 RATIO High 10-20 [facility] Comment on above: Performed By: #### L 100.0100, L500.2500 ####[facility] [address] [place], [address] CA,Total 8.1 mg/dL Low 8.5-10.1 [facility] Comment on above: Performed By: #### L 100.0100, L500.2500 ####[facility] [address] [place], [address] Chloride [Moles/Vol] 104 mmol/L Normal 98-107 [facility] Comment on above: Performed By: #### L 100.0100, L500.2500 ####[facility] [address] [place], [address] CO2 [Moles/Vol] 27.0 mmol/L Normal 21.0-32.0 [facility] Comment on above: Performed By: #### L 100.0100, L500.2500 ####[facility] [address] [place], [address] Creatinine [Mass/Vol] 0.70 mg/dL Normal 0.55-1.02 [facility] Comment on above: Result Comment: The validity of the calculated GFR GFRAA in patients over70 years has not been determined. Clinical correlation isessential. Performed By: #### L 100.0100, L500.2500 ####[facility] [address] [place], [address] ECRCL 91.42 ml/min Normal [facility] Comment on above: Performed By: #### L 100.0100, L500.2500 ####[facility] [address] [place], [address] EST GFR - AA 113 mL/min Normal >60 [facility] Comment on above: Result Comment: Afri can Swiss GFR Calc Performed By: #### L 100.0100, L500.2500 ####[facility] [address] [place], [address] GAP 4 Low 5-15 [facility] Comment on above: Performed By: #### L 100.0100, L500.2500 ####[facility] [address] [place], [address] GFR/1.73 sq M.predicted among non-blacks MDRD (S/P/Bld) [Vol rate/Area] 94 mL/min/{1.73_m2} Normal >60 [facility] Comment on above: Result Comment: Non- GFR Calc Performed By: #### L 100.0100, L500.2500 ####[facility] [address] [place], [address] Glucose [Mass/Vol] 231 mg/dL High 74-106 [facility] Comment on above: Result Comment: Gluc ose result greater than or equal to 200 mg/dLsuggests DIABETES MELLITUS per A.D.A. criteria. Performed By: #### L 100.0100, L500.2500 ####[facility] [address] [place], [address] Potassium [Moles/Vol] 4.7 mmol/L Normal 3.5-5.1 [facility] Comment on above: Performed By: #### L 100.0100, L500.2500 ####[facility] [address] [place], [address] Sodium [Moles/Vol] 134 mmol/L Low 136-145 [facility] Comment on above: Performed By: #### L 100.0100, L500.2500 ####[facility] [address] [place], [address] Urea nitrogen [Mass/Vol] 22 mg/dL High 7-18 [facility] Comment on above: Performed By: #### L 100.0100, L500.2500 ####[facility] [address] [place], [address] Basophil percentageOrdered B y: Tailsha Boykin on 04-29-2024 Basophil percentage 0.5 % 0-1 [facility] Bedside Glucoseon 04-29-2024 FINGERSTICK GLU 277 mg/dL High 74-106 [facility] Comment on above: Result Comment: TALIA CHAMBERS OF PATIENT CARE PER NURSING PROTOCOL Performed By: #### L 501.080 ####[facility] [address] [place], [address] Blood urea nitrogen (BUN)/cr eatinine ratioOrdered By: Talisha Boykin on 04-29-2024 Blood urea nitrogen (BUN)/creatinine ratio 31.5 RATIO High 10-20 [facility] CBC W/Diff, Automatedon 11-2 Absolute Lymph 1.93 X10 3/uL Normal 0.83-4.51 [facility] Comment on above: Performed By: #### L 100.0100, L500.2500 ####[facility] [address] [place], [address] Absolute Neut 7.8 X10 3/uL High 2.0-7.7 [facility] Comment on above: Performed By: #### L 100.0100, L500.2500 ####[facility] [address] [place], [address] Basophils/100 WBC (Bld) 0.5 % Normal 0-1 [facility] Comment on above: Performed By: #### L 100.0100, L500.2500 ####[facility] [address] [place], [address] Eosinophils/100 WBC (Bld) 0.8 % Normal 0-5 [facility] Comment on above: Performed By: #### L 100.0100, L500.2500 ####[facility] [address] [place], [address] Erythrocyte distribution width (RBC) [Ratio] 13.6 % Normal 11.6-14.6 [facility] Comment on above: Performed By: #### L 100.0100, L500.2500 ####[facility] [address] [place], [address] Hematocrit (Bld) [Volume fraction] 34.3 % Low 37-47 [facility] Comment on above: Performed By: #### L 100.0100, L500.2500 ####[facility] [address] [place], [address] Hemoglobin (Bld) [Mass/Vol] 11.2 g/dL Low 12.0-15.0 [facility] Comment on above: Performed By: #### L 100.0100, L500.2500 ####[facility] [address] [place], [address] IG% 1.100 High 0.0-0.9 [facility] Comment on above: Result Comment: IG% - Immature Granulocytes (promyelocytes, myelocytes andmetamyelocytes) > 1% indicates that a LEFT SHIFT is Present. Performed By: #### L 100.0100, L500.2500 ####[facility] [address] [place], [address] Lymphocytes/100 WBC (Bld) 18.4 % Low 19-41 [facility] Comment on above: Performed By: #### L 100.0100, L500.2500 ####[facility] [address] [place], [address] MCH (RBC) [Entitic mass] 27.2 pg Normal 27.0-32.0 [facility] Comment on above: Performed By: #### L 100.0100, L500.2500 ####[facility] [address] [place], [address] MCHC (RBC) [Mass/Vol] 32.7 g/dL Normal 32-36 [facility] Comment on above: Performed By: #### L 100.0100, L500.2500 ####[facility] [address] [place], [address] MCV (RBC) [Entitic vol] 83.3 fL Normal 81-99 [facility] Comment on above: Performed By: #### L 100.0100, L500.2500 ####[facility] [address] [place], [address] Monocytes/100 WBC (Bld) 4.8 % Normal 0-10 [facility] Comment on above: Performed By: #### L 100.0100, L500.2500 ####[facility] [address] [place], [address] Neutrophils/100 WBC (Bld) 74.4 % High 47-70 [facility] Comment on above: Performed By: #### L 100.0100, L500.2500 ####[facility] [address] [place], [address] Nucleated RBC (Bld) [#/Vol] 0 10*3/uL Normal 0-5 [facility] Comment on above: Performed By: #### L 100.0100, L500.2500 ####[facility] [address] [place], [address] Platelet mean volume (Bld) [Entitic vol] 9.6 fL Normal 6.2-12.0 [facility] Comment on above: Performed By: #### L 100.0100, L500.2500 ####[facility] [address] [place], [address] Platelets (Bld) [#/Vol] 312 10*3/uL Normal 150-450 [facility] Comment on above: Performed By: #### L 100.0100, L500.2500 ####[facility] [address] [place], [address] RBC (Bld) [#/Vol] 4.12 10*6/uL Low 4.2-5.4 [facility] Comment on above: Performed By: #### L 100.0100, L500.2500 ####[facility] [address] [place], [address] RDW SD 41.0 fl Normal 35.1-43.9 [facility] Comment on above: Performed By: #### L 100.0100, L500.2500 ####[facility] [address] [place], [address] WBC (Bld) [#/Vol] 10.5 10*3/uL Normal 4.4-11.0 [facility] Comment on above: Performed By: #### L 100.0100, L500.2500 ####[facility] [address] [place], [address] Calcium [Mass/Vol]Ordered By : Talisha Boykin on 04-29-2024 Serum or plasma calcium measurement (mass/volume) 8.1 mg/dL Low 8.5-10.1 [facility] Carbon dioxide measurementOr dered By: Talisha Boykin on 04-29-2024 Carbon dioxide measurement 27.0 mmol/L 21.0-32.0 [facility] Chloride measurementOrdered By: Talisha Boykin on 04-29-2024 Chloride measurement 104 mmol/L 98-107 [facility] Creatinine [Mass/Vol]Ordered By: Talisha Boykin on 04-29-2024 Serum or plasma creatinine measurement (mass/volume) 0.70 mg/dL 0.55-1.02 [facility] Eosinophil percentageOrdered By: Talisha Boykin on 04-29-2024 Eosinophil percentage 0.8 % 0-5 [facility] Erythrocyte distribution wid th (RBC) [Entitic vol]Ordered By: Talisha Boykin on 04-29-2024 Erythrocyte distribution width standard deviation 41.0 fl 35.1-43.9 [facility] Erythrocyte distribution wid th (RBC) [Ratio]Ordered By: Talishaneville Boykin on 04-29-2024 Erythrocyte distribution width ratio 13.6 % 11.6-14.6 [facility] Estimated glomerular filtrat ion rate (GFR) AmericanOrdered By: Talisha Boykin on 04-29-2024 Estimated glomerular filtration rate (GFR) 113 mL/min >60 [facility] Estimation of creatinine sylvain aranceOrdered By: Talisha Boykin on 04-29-2024 Estimation of creatinine clearance 91.42 ml/min [facility] Glomerular filtration rate ( GFR) estimationOrdered By: Talisha Boykin on 04-29-2024 Glomerular filtration rate (GFR) estimation 94 mL/min >60 [facility] Glucose measurementOrdered B y: Talisha Boykin on 04-29-2024 Glucose measurement 231 mg/dL High 74-106 [facility] Glucose measurement at bedsi deOrdered By: Talisha Boykin 04-29-2024 Glucose measurement at bedside 277 mg/dL High 74-106 [facility] Hematocrit Auto (Bld) [Volum e fraction]Ordered By: Talisha Boykin on 04-29-2024 Automated blood hematocrit (percentage) 34.3 % Low 37-47 [facility] Hemoglobin measurementOrdere d By: Talisha Boykin on 04-29-2024 Hemoglobin measurement 11.2 g/dL Low 12.0-15.0 [facility] Immature granulocytes/100 WB C Auto (Bld)Ordered By: Talisha Boykin on 04-29-2024 Automated immature granulocyte percentage 1.100 % High 0.0-0.9 [facility] Lymphocytes Auto (Unsp spec) [#/Vol]Ordered By: Talisha Boykin on 04-29-2024 Absolute lymphocyte count 1.93 X10^3/uL 0.83-4.51 [facility] Lymphocytes/100 WBC Auto (Un sp spec)Ordered By: Talisha Boykin on 04-29-2024 Automated lymphocyte count as percentage of total leukocytes 18.4 % Low 19-41 [facility] MCV (RBC) [Entitic vol]Order ed By: Talisha Boykin on 04-29-2024 MCV (mean corpuscular volume) determination 83.3 fL 81-99 [facility] Mean corpuscular hemoglobin (MCH) determinationOrdered By: Talisha Boykin on 04-29-2024 Mean corpuscular hemoglobin (MCH) determination 27.2 pg 27.0-32.0 [facility] Mean corpuscular hemoglobin concentration (MCHC) determinationOrdered By: Talisha Boykin on 04-29-2024 Mean corpuscular hemoglobin concentration (MCHC) determination 32.7 g/dL 32-36 [facility] Mean platelet volume determi nationOrdered By: Talisha Boykin on 04-29-2024 Mean platelet volume determination 9.6 fl 6.2-12.0 [facility] Monocyte percentageOrdered B y: Talisha Boykin on 04-29-2024 Monocyte percentage 4.8 % 0-10 [facility] Neutrophil percentageOrdered By: Talisha Boykin on 04-29-2024 Neutrophil percentage 74.4 % High 47-70 [facility] Nucleated red blood cell per centageOrdered By: Talisha Boykin on 04-29-2024 Nucleated red blood cell percentage 0 % 0-5 [facility] Platelet countOrdered By: Na na Ashutosh on 04-29-2024 Platelet count 312 K/mm3 150-450 [facility] Potassium measurementOrdered By: Talisha Boykin on 04-29-2024 Potassium measurement 4.7 mmol/L 3.5-5.1 [facility] RBC Auto (Bld) [#/Vol]Ordere d By: Talisha Boykin on 04-29-2024 Automated blood erythrocyte count 4.12 M/mm3 Low 4.2-5.4 [facility] Serum anion gap measurementO rdered By: Talisha Boykin on 04-29-2024 Serum anion gap measurement 4 Low 5-15 [facility] Sodium levelOrdered By: Talisha Boykin on 04-29-2024 Sodium level 134 mmol/L Low 136-145 [facility] Urea nitrogen [Mass/Vol]Orde red By: Talisha Boykin on 04-29-2024 Serum or plasma urea nitrogen measurement (mass/volume) 22 mg/dL High 7-18 [facility] White blood cell (WBC) count Ordered By: Talisha Boykin on 04-29-2024 White blood cell (WBC) count 10.5 K/mm3 4.4-11.0 [facility] Basic Metabolic Profile (BMP )on 04-28-2024 BUN/CRE 28.0 RATIO High 10-20 [facility] Comment on above: Performed By: #### L 100.0100, L500.2500 ####[facility] [address] [place], [address] CA,Total 8.2 mg/dL Low 8.5-10.1 [facility] Comment on above: Performed By: #### L 100.0100, L500.2500 ####[facility] [address] [place], [address] Chloride [Moles/Vol] 102 mmol/L Normal 98-107 [facility] Comment on above: Performed By: #### L 100.0100, L500.2500 ####[facility] [address] [place], [address] CO2 [Moles/Vol] 27.0 mmol/L Normal 21.0-32.0 [facility] Comment on above: Performed By: #### L 100.0100, L500.2500 ####[facility] [address] [place], [address] Creatinine [Mass/Vol] 0.54 mg/dL Low 0.55-1.02 [facility] Comment on above: Result Comment: The validity of the calculated GFR GFRAA in patients over70 years has not been determined. Clinical correlation isessential. Performed By: #### L 100.0100, L500.2500 ####[facility] [address] [place], [address] ECRCL 118.51 ml/min Normal [facility] Comment on above: Performed By: #### L 100.0100, L500.2500 ####[facility] [address] [place], [address] EST GFR - AA 153 mL/min Normal >60 [facility] Comment on above: Result Comment: Afri can Swiss GFR Calc Performed By: #### L 100.0100, L500.2500 ####[facility] [address] [place], [address] GAP 4 Low 5-15 [facility] Comment on above: Performed By: #### L 100.0100, L500.2500 ####[facility] [address] [place], [address] GFR/1.73 sq M.predicted among non-blacks MDRD (S/P/Bld) [Vol rate/Area] 127 mL/min/{1.73_m2} Normal >60 [facility] Comment on above: Result Comment: Non- GFR Calc Performed By: #### L 100.0100, L500.2500 ####[facility] [address] [place], [address] Glucose [Mass/Vol] 134 mg/dL High 74-106 [facility] Comment on above: Result Comment: Fast ing Glucose result greater than or equal to 126 mg/dLsuggests DIABETES MELLITUS per A.D.A. criteria. Performed By: #### L 100.0100, L500.2500 ####[facility] [address] [place], [address] Potassium [Moles/Vol] 4.4 mmol/L Normal 3.5-5.1 [facility] Comment on above: Performed By: #### L 100.0100, L500.2500 ####[facility] [address] [place], [address] Sodium [Moles/Vol] 133 mmol/L Low 136-145 [facility] Comment on above: Performed By: #### L 100.0100, L500.2500 ####[facility] [address] [place], [address] Urea nitrogen [Mass/Vol] 15 mg/dL Normal 7-18 [facility] Comment on above: Performed By: #### L 100.0100, L500.2500 ####[facility] [address] [place], [address] Bedside Glucoseon 04-28-2024 FINGERSTICK GLU 171 mg/dL High 74-106 [facility] Comment on above: Result Comment: TALIA GEMENT OF PATIENT CARE PER NURSING PROTOCOL Performed By: #### L 501.080 ####[facility] [address] [place], [address] FINGERSTICK GLU 158 mg/dL High -106 [facility] Comment on above: Result Comment: TALIA GEMENT OF PATIENT CARE PER NURSING PROTOCOL Performed By: #### L 501.080 ####[facility] [address] [place], [address] FINGERSTICK GLU 147 mg/dL High 74-106 [facility] Comment on above: Result Comment: TALIA GEMENT OF PATIENT CARE PER NURSING PROTOCOL Performed By: #### L 501.080 ####[facility] [address] [place], [address] FINGERSTICK GLU 148 mg/dL High 74-106 [facility] Comment on above: Result Comment: TALIA GEMENT OF PATIENT CARE PER NURSING PROTOCOL Performed By: #### L 501.080 ####[facility] [address] [place], [address] CBC W/Diff, Automatedon 11-2 Absolute Lymph 1.78 X10 3/uL Normal 0.83-4.51 [facility] Comment on above: Performed By: #### L 100.0100, L500.2500 ####[facility] [address] [place], [address] Absolute Neut 5.6 X10 3/uL Normal 2.0-7.7 [facility] Comment on above: Performed By: #### L 100.0100, L500.2500 ####[facility] [address] [place], [address] Basophils/100 WBC (Bld) 0.6 % Normal 0-1 [facility] Comment on above: Performed By: #### L 100.0100, L500.2500 ####[facility] [address] [place], [address] Eosinophils/100 WBC (Bld) 1.4 % Normal 0-5 [facility] Comment on above: Performed By: #### L 100.0100, L500.2500 ####[facility] [address] [place], [address] Erythrocyte distribution width (RBC) [Ratio] 13.3 % Normal 11.6-14.6 [facility] Comment on above: Performed By: #### L 100.0100, L500.2500 ####[facility] [address] [place], [address] Hematocrit (Bld) [Volume fraction] 38.7 % Normal 37-47 [facility] Comment on above: Performed By: #### L 100.0100, L500.2500 ####[facility] [address] [place], [address] Hemoglobin (Bld) [Mass/Vol] 12.4 g/dL Normal 12.0-15.0 [facility] Comment on above: Performed By: #### L 100.0100, L500.2500 ####[facility] [address] [place], [address] IG% 1.500 High 0.0-0.9 [facility] Comment on above: Result Comment: IG% - Immature Granulocytes (promyelocytes, myelocytes andmetamyelocytes) > 1% indicates that a LEFT SHIFT is Present. Performed By: #### L 100.0100, L500.2500 ####[facility] [address] [place], [address] Lymphocytes/100 WBC (Bld) 22.1 % Normal 19-41 [facility] Comment on above: Performed By: #### L 100.0100, L500.2500 ####[facility] [address] [place], [address] MCH (RBC) [Entitic mass] 26.5 pg Low 27.0-32.0 [facility] Comment on above: Performed By: #### L 100.0100, L500.2500 ####[facility] [address] [place], [address] MCHC (RBC) [Mass/Vol] 32.0 g/dL Normal 32-36 [facility] Comment on above: Performed By: #### L 100.0100, L500.2500 ####[facility] [facility] [address] [place], [address] MCV (RBC) [Entitic vol] 82.7 fL Normal 81-99 [facility] Comment on above: Performed By: #### L 100.0100, L500.2500 ####[facility] [address] [place], [address] Monocytes/100 WBC (Bld) 5.3 % Normal 0-10 [facility] Comment on above: Performed By: #### L 100.0100, L500.2500 ####[facility] [address] [place], [address] Neutrophils/100 WBC (Bld) 69.1 % Normal 47-70 [facility] Comment on above: Performed By: #### L 100.0100, L500.2500 ####[facility] [address] [place], [address] Nucleated RBC (Bld) [#/Vol] 0 10*3/uL Normal 0-5 [facility] Comment on above: Performed By: #### L 100.0100, L500.2500 ####[facility] [address] [place], [address] Platelet mean volume (Bld) [Entitic vol] 9.6 fL Normal 6.2-12.0 [facility] Comment on above: Performed By: #### L 100.0100, L500.2500 ####[facility] [address] [place], [address] Platelets (Bld) [#/Vol] 273 10*3/uL Normal 150-450 [facility] Comment on above: Performed By: #### L 100.0100, L500.2500 ####[facility] [address] [place], [address] RBC (Bld) [#/Vol] 4.68 10*6/uL Normal 4.2-5.4 [facility] Comment on above: Performed By: #### L 100.0100, L500.2500 ####[facility] [address] [place], [address] RDW SD 40.3 fl Normal 35.1-43.9 [facility] Comment on above: Performed By: #### L 100.0100, L500.2500 ####[facility] [address] [place], [address] WBC (Bld) [#/Vol] 8.1 10*3/uL Normal 4.4-11.0 [facility] Comment on above: Performed By: #### L 100.0100, L500.2500 ####[facility] [address] [place], [address] Basic Metabolic Profile (BMP )on 04-27-2024 BUN/CRE 25.8 RATIO High 10-20 [facility] Comment on above: Performed By: #### L 500.2500, L100.0100 ####[facility] [address] [place], [address] CA,Total 8.2 mg/dL Low 8.5-10.1 [facility] Comment on above: Performed By: #### L 500.2500, L100.0100 ####[facility] [address] [place], [address] Chloride [Moles/Vol] 98 mmol/L Normal 98-107 [facility] Comment on above: Performed By: #### L 500.2500, L100.0100 ####[facility] [address] [place], [address] CO2 [Moles/Vol] 31.0 mmol/L Normal 21.0-32.0 [facility] Comment on above: Performed By: #### L 500.2500, L100.0100 ####[facility] [address] [place], [address] Creatinine [Mass/Vol] 0.66 mg/dL Normal 0.55-1.02 [facility] Comment on above: Result Comment: The validity of the calculated GFR GFRAA in patients over70 years has not been determined. Clinical correlation isessential. Performed By: #### L 500.2500, L100.0100 ####[facility] [address] [place], [address] ECRCL 96.96 ml/min Normal [facility] Comment on above: Performed By: #### L 500.2500, L100.0100 ####[facility] [address] [place], [address] EST GFR - AA 121 mL/min Normal >60 [facility] Comment on above: Result Comment: Afri can Swiss GFR Calc Performed By: #### L 500.2500, L100.0100 ####[facility] [address] [place], [address] GAP 5 Normal 5-15 [facility] Comment on above: Performed By: #### L 500.2500, L100.0100 ####[facility] [address] [place], [address] GFR/1.73 sq M.predicted among non-blacks MDRD (S/P/Bld) [Vol rate/Area] 100 mL/min/{1.73_m2} Normal >60 [facility] Comment on above: Result Comment: Non- GFR Calc Performed By: #### L 500.2500, L100.0100 ####[facility] [address] [place], [address] Glucose [Mass/Vol] 265 mg/dL High 74-106 [facility] Comment on above: Result Comment: Gluc ose result greater than or equal to 200 mg/dLsuggests DIABETES MELLITUS per A.D.A. criteria. Performed By: #### L 500.2500, L100.0100 ####[facility] [address] [place], [address] Potassium [Moles/Vol] 4.1 mmol/L Normal 3.5-5.1 [facility] Comment on above: Performed By: #### L 500.2500, L100.0100 ####[facility] [address] [place], [address] Sodium [Moles/Vol] 134 mmol/L Low 136-145 [facility] Comment on above: Performed By: #### L 500.2500, L100.0100 ####[facility] [address] [place], [address] Urea nitrogen [Mass/Vol] 17 mg/dL Normal 7-18 [facility] Comment on above: Performed By: #### L 500.2500, L100.0100 ####[facility] [address] [place], [address] Bedside Glucoseon 04-27-2024 FINGERSTICK GLU 188 mg/dL High 74-106 [facility] Comment on above: Result Comment: TALIA GEMENT OF PATIENT CARE PER NURSING PROTOCOL Performed By: #### L 501.080 ####[facility] [address] [place], [address] FINGERSTICK GLU 278 mg/dL High 74-106 [facility] Comment on above: Result Comment: TALIA GEMENT OF PATIENT CARE PER NURSING PROTOCOL Performed By: #### L 501.080 ####[facility] [address] [place], [address] FINGERSTICK GLU 321 mg/dL High 74-106 [facility] Comment on above: Result Comment: TALIA GEMENT OF PATIENT CARE PER NURSING PROTOCOL Performed By: #### L 501.080 ####[facility] [address] [place], [address] FINGERSTICK GLU 185 mg/dL High 74-106 [facility] Comment on above: Result Comment: TALIA GEMENT OF PATIENT CARE PER NURSING PROTOCOL Performed By: #### L 501.080 ####[facility] [address] [place], [address] CBC W/Diff, Automatedon 11-2 -2023 Absolute Lymph 1.39 X10 3/uL Normal 0.83-4.51 [facility] Comment on above: Performed By: #### L 500.2500, L100.0100 ####[facility] [address] [place], [address] Absolute Neut 6.8 X10 3/uL Normal 2.0-7.7 [facility] Comment on above: Performed By: #### L 500.2500, L100.0100 ####[facility] [address] [place], [address] Basophils/100 WBC (Bld) 0.7 % Normal 0-1 [facility] Comment on above: Performed By: #### L 500.2500, L100.0100 ####[facility] [address] [place], [address] Eosinophils/100 WBC (Bld) 1.1 % Normal 0-5 [facility] Comment on above: Performed By: #### L 500.2500, L100.0100 ####[facility] [address] [place], [address] Erythrocyte distribution width (RBC) [Ratio] 13.3 % Normal 11.6-14.6 [facility] Comment on above: Performed By: #### L 500.2500, L100.0100 ####[facility] [address] [place], [address] Hematocrit (Bld) [Volume fraction] 38.1 % Normal 37-47 [facility] Comment on above: Performed By: #### L 500.2500, L100.0100 ####[facility] [address] [place], [address] Hemoglobin (Bld) [Mass/Vol] 12.3 g/dL Normal 12.0-15.0 [facility] Comment on above: Performed By: #### L 500.2500, L100.0100 ####[facility] [address] [place], [address] IG% 1.200 High 0.0-0.9 [facility] Comment on above: Result Comment: IG% - Immature Granulocytes (promyelocytes, myelocytes andmetamyelocytes) > 1% indicates that a LEFT SHIFT is Present. Performed By: #### L 500.2500, L100.0100 ####[facility] [address] [place], [address] Lymphocytes/100 WBC (Bld) 15.7 % Low 19-41 [facility] Comment on above: Performed By: #### L 500.2500, L100.0100 ####[facility] [address] [place], [address] MCH (RBC) [Entitic mass] 26.9 pg Low 27.0-32.0 [facility] Comment on above: Performed By: #### L 500.2500, L100.0100 ####[facility] [address] [place], [address] MCHC (RBC) [Mass/Vol] 32.3 g/dL Normal 32-36 [facility] Comment on above: Performed By: #### L 500.2500, L100.0100 ####[facility] [address] [place], [address] MCV (RBC) [Entitic vol] 83.2 fL Normal 81-99 [facility] Comment on above: Performed By: #### L 500.2500, L100.0100 ####[facility] [address] [place], [address] Monocytes/100 WBC (Bld) 4.9 % Normal 0-10 [facility] Comment on above: Performed By: #### L 500.2500, L100.0100 ####[facility] [address] [place], [address] Neutrophils/100 WBC (Bld) 76.4 % High 47-70 [facility] Comment on above: Performed By: #### L 500.2500, L100.0100 ####[facility] [address] [place], [address] Nucleated RBC (Bld) [#/Vol] 0 10*3/uL Normal 0-5 [facility] Comment on above: Performed By: #### L 500.2500, L100.0100 ####[facility] [address] [place], [address] Platelet mean volume (Bld) [Entitic vol] 9.3 fL Normal 6.2-12.0 [facility] Comment on above: Performed By: #### L 500.2500, L100.0100 ####[facility] [address] [place], [address] Platelets (Bld) [#/Vol] 284 10*3/uL Normal 150-450 [facility] Comment on above: Performed By: #### L 500.2500, L100.0100 ####[facility] [address] [place], [address] RBC (Bld) [#/Vol] 4.58 10*6/uL Normal 4.2-5.4 [facility] Comment on above: Performed By: #### L 500.2500, L100.0100 ####[facility] [address] [place], [address] RDW SD 40.4 fl Normal 35.1-43.9 [facility] Comment on above: Performed By: #### L 500.2500, L100.0100 ####[facility] [address] [place], [address] WBC (Bld) [#/Vol] 8.9 10*3/uL Normal 4.4-11.0 [facility] Comment on above: Performed By: #### L 500.2500, L100.0100 ####[facility] [address] [place], [address] ALP [Catalytic activity/Vol] Ordered By: Nicole Trujillo on 04-26-2024 Serum or plasma alkaline phosphatase measurement 95 U/L 45-117 [facility] ALT [Catalytic activity/Vol] Ordered By: Nicole Trujillo on 04-26-2024 Serum or plasma alanine aminotransferase (ALT) measurement 8 U/L Low 13-56 [facility] Albumin [Mass/Vol]Ordered By : Nicole Trujillo on 04-26-2024 Serum or plasma albumin measurement (mass/volume) 1.7 g/dL Low 3.2-5.0 [facility] Albumin to globulin ratioOrd ered By: Nicole Trujillo on 04-26-2024 Albumin to globulin ratio 0.4 RATIO Low 0.9-2.4 [facility] Bedside Glucoseon 04-26-2024 FINGERSTICK GLU 319 mg/dL High 74-106 [facility] Comment on above: Result Comment: TALIA GEMENT OF PATIENT CARE PER NURSING PROTOCOL Performed By: #### L 501.080 ####[facility] [address] [place], [address] FINGERSTICK GLU 280 mg/dL High 74-[address] [place] [address] Comment on above: Result Comment: TALIA GEMENT OF PATIENT CARE PER NURSING PROTOCOL Performed By: #### L 501.080 ####[facility] [address] [place], [address] FINGERSTICK GLU 150 mg/dL High [address] [place] [address] Comment on above: Result Comment: TALIA GEMENT OF PATIENT CARE PER NURSING PROTOCOL Performed By: #### L 501.080 ####[facility] [address] [place], [address] Bilirubin, totalOrdered By: Nicole Trujillo on 04-26-2024 Bilirubin, total 0.50 mg/dL 0.20-1.00 [facility] CBC W/Diff, Automatedon 04-05 Absolute Lymph 1.72 X10 3/uL Normal 0.83-4.51 [facility] Comment on above: Performed By: #### L 100.0100, L500.4050, L501.2300, L501.5200 ####[facility] [address] [place], [address] Absolute Neut 6.8 X10 3/uL Normal 2.0-7.7 [facility] Comment on above: Performed By: #### L 100.0100, L500.4050, L501.2300, L501.5200 ####[facility] [address] [place], [address] Basophils/100 WBC (Bld) 0.4 % Normal 0-1 [facility] Comment on above: Performed By: #### L 100.0100, L500.4050, L501.2300, L501.5200 ####[facility] [address] [place], [address] Eosinophils/100 WBC (Bld) 1.2 % Normal 0-5 [facility] Comment on above: Performed By: #### L 100.0100, L500.4050, L501.2300, L501.5200 ####[facility] [address] [place], [address] Erythrocyte distribution width (RBC) [Ratio] 13.2 % Normal 11.6-14.6 [facility] Comment on above: Performed By: #### L 100.0100, L500.4050, L501.2300, L501.5200 ####[facility] [address] [place], [address] Hematocrit (Bld) [Volume fraction] 33.4 % Low 37-47 [facility] Comment on above: Performed By: #### L 100.0100, L500.4050, L501.2300, L501.5200 ####[facility] [address] [place], [address] Hemoglobin (Bld) [Mass/Vol] 11.3 g/dL Low 12.0-15.0 [facility] Comment on above: Performed By: #### L 100.0100, L500.4050, L501.2300, L501.5200 ####[facility] [address] [place], [address] IG% 1.200 High 0.0-0.9 [facility] Comment on above: Result Comment: IG% - Immature Granulocytes (promyelocytes, myelocytes andmetamyelocytes) > 1% indicates that a LEFT SHIFT is Present. Performed By: #### L 100.0100, L500.4050, L501.2300, L501.5200 ####[facility] [address] [place], [address] Lymphocytes/100 WBC (Bld) 18.4 % Low 19-41 [facility] Comment on above: Performed By: #### L 100.0100, L500.4050, L501.2300, L501.5200 ####[facility] [address] [place], [address] MCH (RBC) [Entitic mass] 27.6 pg Normal 27.0-32.0 [facility] Comment on above: Performed By: #### L 100.0100, L500.4050, L501.2300, L501.5200 ####[facility] [address] [place], [address] MCHC (RBC) [Mass/Vol] 33.8 g/dL Normal 32-36 [facility] Comment on above: Performed By: #### L 100.0100, L500.4050, L501.2300, L501.5200 ####[facility] [address] [place], [address] MCV (RBC) [Entitic vol] 81.7 fL Normal 81-99 [facility] Comment on above: Performed By: #### L 100.0100, L500.4050, L501.2300, L501.5200 ####[facility] [address] [place], [address] Monocytes/100 WBC (Bld) 5.7 % Normal 0-10 [facility] Comment on above: Performed By: #### L 100.0100, L500.4050, L501.2300, L501.5200 ####[facility] [address] [place], [address] Neutrophils/100 WBC (Bld) 73.1 % High 47-70 [facility] Comment on above: Performed By: #### L 100.0100, L500.4050, L501.2300, L501.5200 ####[facility] [address] [place], [address] Nucleated RBC (Bld) [#/Vol] 0 10*3/uL Normal 0-5 [facility] Comment on above: Performed By: #### L 100.0100, L500.4050, L501.2300, L501.5200 ####[facility] [address] [place], [address] Platelet mean volume (Bld) [Entitic vol] 9.3 fL Normal 6.2-12.0 [facility] Comment on above: Performed By: #### L 100.0100, L500.4050, L501.2300, L501.5200 ####[facility] [address] [place], [address] Platelets (Bld) [#/Vol] 234 10*3/uL Normal 150-450 [facility] Comment on above: Performed By: #### L 100.0100, L500.4050, L501.2300, L501.5200 ####[facility] [address] [place], [address] RBC (Bld) [#/Vol] 4.09 10*6/uL Low 4.2-5.4 [facility] Comment on above: Performed By: #### L 100.0100, L500.4050, L501.2300, L501.5200 ####[facility] [address] [place], [address] RDW SD 39.2 fl Normal 35.1-43.9 [facility] Comment on above: Performed By: #### L 100.0100, L500.4050, L501.2300, L501.5200 ####[facility] [address] [place], [address] WBC (Bld) [#/Vol] 9.3 10*3/uL Normal 4.4-11.0 [facility] Comment on above: Performed By: #### L 100.0100, L500.4050, L501.2300, L501.5200 ####[facility] [address] [place], [address] Comprehensive Metabolic [facility] 04-26-2024 Albumin [Mass/Vol] 1.7 g/dL Low 3.2-5.0 [facility] Comment on above: Performed By: #### L 100.0100, L500.4050, L501.2300, L501.5200 ####[facility] [address] [place], [address] Albumin/Globulin [Mass ratio] 0.4 {ratio} Low 0.9-2.4 [facility] Comment on above: Performed By: #### L 100.0100, L500.4050, L501.2300, L501.5200 ####[facility] [address] [place], [address] ALK P 95 U/L Normal 45-117 [facility] Comment on above: Performed By: #### L 100.0100, L500.4050, L501.2300, L501.5200 ####[facility] [address] [place], [address] ALT [Catalytic activity/Vol] 8 U/L Low 13-56 [facility] Comment on above: Performed By: #### L 100.0100, L500.4050, L501.2300, L501.5200 ####[facility] [address] [place], [address] AST [Catalytic activity/Vol] 13 U/L Low 15-37 [facility] Comment on above: Performed By: #### L 100.0100, L500.4050, L501.2300, L501.5200 ####[facility] [address] [place], [address] Bilirubin [Mass/Vol] 0.50 mg/dL Normal 0.20-1.00 [facility] Comment on above: Result Comment: For patients on eltrombopag therapy, use of Dimension Chappell TBIL is not recommended. Performed By: #### L 100.0100, L500.4050, L501.2300, L501.5200 ####[facility] [address] [place], [address] BUN/CRE 23.5 RATIO High 10-20 [facility] Comment on above: Performed By: #### L 100.0100, L500.4050, L501.2300, L501.5200 ####[facility] [address] [place], [address] CA,Total 8.0 mg/dL Low 8.5-10.1 [facility] Comment on above: Performed By: #### L 100.0100, L500.4050, L501.2300, L501.5200 ####[facility] [address] [place], [address] Chloride [Moles/Vol] 98 mmol/L Normal 98-107 [facility] Comment on above: Performed By: #### L 100.0100, L500.4050, L501.2300, L501.5200 ####[facility] [address] [place], [address] CO2 [Moles/Vol] 30.0 mmol/L Normal 21.0-32.0 [facility] Comment on above: Performed By: #### L 100.0100, L500.4050, L501.2300, L501.5200 ####[facility] [address] [place], [address] Creatinine [Mass/Vol] 0.81 mg/dL Normal 0.55-1.02 [facility] Comment on above: Result Comment: The validity of the calculated GFR GFRAA in patients over70 years has not been determined. Clinical correlation isessential. Performed By: #### L 100.0100, L500.4050, L501.2300, L501.5200 ####[facility] [address] [place], [address] ECRCL 79.01 ml/min Normal [facility] Comment on above: Performed By: #### L 100.0100, L500.4050, L501.2300, L501.5200 ####[facility] [address] [place], [address] EST GFR - AA 96 mL/min Normal >60 [facility] Comment on above: Result Comment: Afri can Swiss GFR Calc Performed By: #### L 100.0100, L500.4050, L501.2300, L501.5200 ####[facility] [address] [place], [address] GAP 4 Low 5-15 [facility] Comment on above: Performed By: #### L 100.0100, L500.4050, L501.2300, L501.5200 ####[facility] [address] [place], [address] GFR/1.73 sq M.predicted among non-blacks MDRD (S/P/Bld) [Vol rate/Area] 79 mL/min/{1.73_m2} Normal >60 [facility] Comment on above: Result Comment: Non- GFR Calc Performed By: #### L 100.0100, L500.4050, L501.2300, L501.5200 ####[facility] [address] [place], [address] Globulin (S) [Mass/Vol] 4.7 g/dL High 2.2-4.2 [facility] Comment on above: Performed By: #### L 100.0100, L500.4050, L501.2300, L501.5200 ####[facility] [address] [place], [address] Glucose [Mass/Vol] 146 mg/dL High 74-106 [facility] Comment on above: Result Comment: Fast ing Glucose result greater than or equal to 126 mg/dLsuggests DIABETES MELLITUS per A.D.A. criteria. Performed By: #### L 100.0100, L500.4050, L501.2300, L501.5200 ####[facility] [address] [place], [address] Potassium [Moles/Vol] 3.2 mmol/L Low 3.5-5.1 [facility] Comment on above: Performed By: #### L 100.0100, L500.4050, L501.2300, L501.5200 ####[facility] [address] [place], [address] Sodium [Moles/Vol] 132 mmol/L Low 136-145 [facility] Comment on above: Performed By: #### L 100.0100, L500.4050, L501.2300, L501.5200 ####[facility] [address] [place], [address] T PROT 6.4 g/dL Normal 6.4-8.2 [facility] Comment on above: Performed By: #### L 100.0100, L500.4050, L501.2300, L501.5200 ####[facility] [address] [place], [address] Urea nitrogen [Mass/Vol] 19 mg/dL High 7-18 [facility] Comment on above: Performed By: #### L 100.0100, L500.4050, L501.2300, L501.5200 ####[facility] [address] [place], [address] M R Staph Aureus DNA by PCRo n 04-26-2024 MRSA DNA ASSAY Negative Normal Negative [facility] Comment on above: Performed By: #### L 8200.1000 ####[facility] [address] [place], [address] MRSA Wound DNA by PCRon 04-05 MRSA DNA ASSAY Negative Normal Negative [facility] Comment on above: Order Comment: left breast Performed By: #### L 8200.1075 ####[facility] [address] [place], [address] SA DNA ASSAY Negative Normal Negative [facility] Comment on above: Order Comment: left breast Performed By: #### L 8200.1075 ####[facility] [address] [place], [address] MRSA detection PCROrdered By : Nicole Trujillo on 04-26-2024 MRSA detection PCR Negative Negative [facility] Magnesiumon 04-26-2024 Magnesium [Mass/Vol] 2.2 mg/dL Normal 1.6-2.6 [facility] Comment on above: Performed By: #### L 100.0100, L500.4050, L501.2300, L501.5200 ####[facility] [address] [place], [address] Magnesium measurementOrdered By: Nicole Trujillo on 04-26-2024 Magnesium measurement 2.2 mg/dL 1.6-2.6 [facility] No Panel InformationOrdered By: Nicole Trujillo on 04-26-2024 13 U/L Low 15-37 [facility] Phosphoruson 04-26-2024 Phosphate [Mass/Vol] 3.2 mg/dL Normal 2.5-4.9 [facility] Comment on above: Performed By: #### L 100.0100, L500.4050, L501.2300, L501.5200 ####[facility] [address] [place], [place], [id number] Phosphorus measurementOrdere d By: Nicole Trujillo on 04-26-2024 Phosphorus measurement 3.2 mg/dL 2.5-4.9 [facility] Serum globulin measurementOr dered By: Nicoel Trujillo on 04-26-2024 Serum globulin measurement 4.7 g/dL High 2.2-4.2 [facility] Total proteinOrdered By: Jenae Trujillo on 04-26-2024 Total protein 6.4 g/dL 6.4-8.2 [facility] Abdomen/Pelvis W IV Cont ONL Yon 04-25-2024 Abdomen/Pelvis W IV Cont ONLY Normal [facility] Bedside Glucoseon 04-25-2024 FINGERSTICK GLU 341 mg/dL High 74-106 [facility] Comment on above: Result Comment: TALIA JIMMIEENT OF PATIENT CARE PER NURSING PROTOCOL Performed By: #### L 501.080 ####[facility] [address] [place], [place], [id number] FINGERSTICK GLU 336 mg/dL High 74-106 [facility] Comment on above: Result Comment: TALIA CHAMBERS OF PATIENT CARE PER NURSING PROTOCOL Performed By: #### L 501.080 ####[facility] [address] [place], [address] CBC W/Diff, Automatedon 11-2 Absolute Lymph 0.97 X10 3/uL Normal 0.83-4.51 [facility] Comment on above: Performed By: #### L 100.0100, L501.2450, L503.6005, L500.4050 ####[facility] [address] [place], [address] Absolute Neut 10.8 X10 3/uL High 2.0-7.7 [facility] Comment on above: Performed By: #### L 100.0100, L501.2450, L503.6005, L500.4050 ####[facility] [address] [place], [address] Basophils/100 WBC (Bld) 0.4 % Normal 0-1 [facility] Comment on above: Performed By: #### L 100.0100, L501.2450, L503.6005, L500.4050 ####[facility] [address] [place], [address] Eosinophils/100 WBC (Bld) 0.5 % Normal 0-5 [facility] Comment on above: Performed By: #### L 100.0100, L501.2450, L503.6005, L500.4050 ####[facility] [address] [place], [address] Erythrocyte distribution width (RBC) [Ratio] 13.0 % Normal 11.6-14.6 [facility] Comment on above: Performed By: #### L 100.0100, L501.2450, L503.6005, L500.4050 ####[facility] [address] [place], [address] Hematocrit (Bld) [Volume fraction] 39.4 % Normal 37-47 [facility] Comment on above: Performed By: #### L 100.0100, L501.2450, L503.6005, L500.4050 ####[facility] [address] [place], [address] Hemoglobin (Bld) [Mass/Vol] 13.3 g/dL Normal 12.0-15.0 [facility] Comment on above: Performed By: #### L 100.0100, L501.2450, L503.6005, L500.4050 ####[facility] [address] [place], [address] IG% 1.100 High 0.0-0.9 [facility] Comment on above: Result Comment: IG% - Immature Granulocytes (promyelocytes, myelocytes andmetamyelocytes) > 1% indicates that a LEFT SHIFT is Present. Performed By: #### L 100.0100, L501.2450, L503.6005, L500.4050 ####[facility] [address] [place], [address] Lymphocytes/100 WBC (Bld) 7.7 % Low 19-41 [facility] Comment on above: Performed By: #### L 100.0100, L501.2450, L503.6005, L500.4050 ####[facility] [address] [place], [address] MCH (RBC) [Entitic mass] 27.0 pg Normal 27.0-32.0 [facility] Comment on above: Performed By: #### L 100.0100, L501.2450, L503.6005, L500.4050 ####[facility] [address] [place], [address] MCHC (RBC) [Mass/Vol] 33.8 g/dL Normal 32-36 [facility] Comment on above: Performed By: #### L 100.0100, L501.2450, L503.6005, L500.4050 ####[facility] [address] [place], [address] MCV (RBC) [Entitic vol] 79.9 fL Low 81-99 [facility] Comment on above: Performed By: #### L 100.0100, L501.2450, L503.6005, L500.4050 ####[facility] [address] [place], [address] Monocytes/100 WBC (Bld) 4.2 % Normal 0-10 [facility] Comment on above: Performed By: #### L 100.0100, L501.2450, L503.6005, L500.4050 ####[facility] [address] [place], [address] Neutrophils/100 WBC (Bld) 86.1 % High 47-70 [facility] Comment on above: Performed By: #### L 100.0100, L501.2450, L503.6005, L500.4050 ####[facility] [address] [place], [address] Nucleated RBC (Bld) [#/Vol] 0 10*3/uL Normal 0-5 [facility] Comment on above: Performed By: #### L 100.0100, L501.2450, L503.6005, L500.4050 ####[facility] [address] [place], [address] Platelet mean volume (Bld) [Entitic vol] 9.4 fL Normal 6.2-12.0 [facility] Comment on above: Performed By: #### L 100.0100, L501.2450, L503.6005, L500.4050 ####[facility] [address] [place], [address] Platelets (Bld) [#/Vol] 259 10*3/uL Normal 150-450 [facility] Comment on above: Performed By: #### L 100.0100, L501.2450, L503.6005, L500.4050 ####[facility] [address] [place], [address] RBC (Bld) [#/Vol] 4.93 10*6/uL Normal 4.2-5.4 [facility] Comment on above: Performed By: #### L 100.0100, L501.2450, L503.6005, L500.4050 ####[facility] [address] [place], [address] RDW SD 37.1 fl Normal 35.1-43.9 [facility] Comment on above: Performed By: #### L 100.0100, L501.2450, L503.6005, L500.4050 ####[facility] [address] [place], [address] WBC (Bld) [#/Vol] 12.6 10*3/uL High 4.4-11.0 [facility] Comment on above: Performed By: #### L 100.0100, L501.2450, L503.6005, L500.4050 ####[facility] [address] [place], [address] Comprehensive Metabolic Prof [facility] 04-25-2024 Albumin [Mass/Vol] 2.0 g/dL Low 3.2-5.0 [facility] Comment on above: Performed By: #### L 100.0100, L501.2450, L503.6005, L500.4050 ####[facility] [address] [place], [address] Albumin/Globulin [Mass ratio] 0.4 {ratio} Low 0.9-2.4 [facility] Comment on above: Performed By: #### L 100.0100, L501.2450, L503.6005, L500.4050 ####[facility] [address] [place], [address] ALK P 124 U/L High 45-117 [facility] Comment on above: Performed By: #### L 100.0100, L501.2450, L503.6005, L500.4050 ####[facility] [address] [place], [address] ALT [Catalytic activity/Vol] 9 U/L Low 13-56 [facility] Comment on above: Performed By: #### L 100.0100, L501.2450, L503.6005, L500.4050 ####[facility] [address] [place], [address] AST [Catalytic activity/Vol] 17 U/L Normal 15-37 [facility] Comment on above: Performed By: #### L 100.0100, L501.2450, L503.6005, L500.4050 ####[facility] [address] [place], [address] Bilirubin [Mass/Vol] 0.80 mg/dL Normal 0.20-1.00 [facility] Comment on above: Result Comment: For patients on eltrombopag therapy, use of Dimension Chappell TBIL is not recommended. Performed By: #### L 100.0100, L501.2450, L503.6005, L500.4050 ####[facility] [address] [place], [address] BUN/CRE 29.4 RATIO High 10-20 [facility] Comment on above: Performed By: #### L 100.0100, L501.2450, L503.6005, L500.4050 ####[facility] [address] [place], [address] CA,Total 8.7 mg/dL Normal 8.5-10.1 [facility] Comment on above: Performed By: #### L 100.0100, L501.2450, L503.6005, L500.4050 ####[facility] [address] [place], [address] Chloride [Moles/Vol] 95 mmol/L Low 98-107 [facility] Comment on above: Performed By: #### L 100.0100, L501.2450, L503.6005, L500.4050 ####[facility] [address] [place], [address] CO2 [Moles/Vol] 29.0 mmol/L Normal 21.0-32.0 [facility] Comment on above: Performed By: #### L 100.0100, L501.2450, L503.6005, L500.4050 ####[facility] [address] [place], [address] Creatinine [Mass/Vol] 0.65 mg/dL Normal 0.55-1.02 [facility] Comment on above: Result Comment: The validity of the calculated GFR GFRAA in patients over70 years has not been determined. Clinical correlation isessential. Performed By: #### L 100.0100, L501.2450, L503.6005, L500.4050 ####[facility] [address] [place], [address] ECRCL 109.13 ml/min Normal [facility] Comment on above: Performed By: #### L 100.0100, L501.2450, L503.6005, L500.4050 ####[facility] [address] [place], [address] EST GFR - AA 123 mL/min Normal >60 [facility] Comment on above: Result Comment: Afri can Swiss GFR Calc Performed By: #### L 100.0100, L501.2450, L503.6005, L500.4050 ####[facility] [address] [place], [address] GAP 6 Normal 5-15 [facility] Comment on above: Performed By: #### L 100.0100, L501.2450, L503.6005, L500.4050 ####[facility] [address] [place], [address] GFR/1.73 sq M.predicted among non-blacks MDRD (S/P/Bld) [Vol rate/Area] 102 mL/min/{1.73_m2} Normal >60 [facility] Comment on above: Result Comment: Non- GFR Calc Performed By: #### L 100.0100, L501.2450, L503.6005, L500.4050 ####[facility] [address] [place], [address] Globulin (S) [Mass/Vol] 5.7 g/dL High 2.2-4.2 [facility] Comment on above: Performed By: #### L 100.0100, L501.2450, L503.6005, L500.4050 ####[facility] [address] [place], [address] Glucose [Mass/Vol] 359 mg/dL High 74-106 [facility] Comment on above: Result Comment: Gluc ose result greater than or equal to 200 mg/dLsuggests DIABETES MELLITUS per A.D.A. criteria. Performed By: #### L 100.0100, L501.2450, L503.6005, L500.4050 ####[facility] [address] [place], [address] Potassium [Moles/Vol] 3.5 mmol/L Normal 3.5-5.1 [facility] Comment on above: Performed By: #### L 100.0100, L501.2450, L503.6005, L500.4050 ####[facility] [address] [place], [address] Sodium [Moles/Vol] 130 mmol/L Low 136-145 [facility] Comment on above: Performed By: #### L 100.0100, L501.2450, L503.6005, L500.4050 ####[facility] [address] [place], [address] T PROT 7.7 g/dL Normal 6.4-8.2 [facility] Comment on above: Performed By: #### L 100.0100, L501.2450, L503.6005, L500.4050 ####[facility] [address] [place], [address] Urea nitrogen [Mass/Vol] 19 mg/dL High 7-18 [facility] Comment on above: Performed By: #### L 100.0100, L501.2450, L503.6005, L500.4050 ####[facility] [address] [place], [address] Emergency Department Summary on 04-25-2024 Emergency Department Summary Normal [facility] H AND P Exam - Hospitaliston 04-25-2024 H&P Exam - Hospitalist Normal [facility] Lactic Acidon 04-25-2024 Lactate [Moles/Vol] 3.0 mmol/L Invalid Interpretation Code 0.4-1.9 [facility] Comment on above: Result Comment: Crit ical Result(s) Called at: 18:55:46 04/25/2024 by:Eneida Caraballo to Sandeep Elizalde. Results read back by same. Performed By: #### L 503.6005 ####[facility] [address] [place], [address] Lactate [Moles/Vol] 2.0 mmol/L Normal 0.4-1.9 [facility] Comment on above: Order Comment: Y Result Comment: Crit ical Result(s) Called at: 14:43:32 04/25/2024 by:Eneida Short. Results read back by same. Performed By: #### L 100.0100, L501.2450, L503.6005, L500.4050 ####[facility] [address] [place], [address] Lactic acid measurementOrder ed By: Jeremiah Rawls on 04-25-2024 Lactic acid measurement 3.0 mmol/L High 0.4-2.0 [facility] Lipaseon 04-25-2024 Lipase [Catalytic activity/Vol] 22 U/L Normal - [facility] Comment on above: Result Comment: Gege edgar note:LIPASE revised reference range effective 22.New Lipase methodology. Expected to produce lower valuesthan the previous assay method.NEW Reference Range: 13 - 75 U/L Performed By: #### L 100.0100, L501.2450, L503.6005, L500.4050 ####[facility] [address] [place], [address] Lipase measurementOrdered By : Jeremiah Rawls on 04-25-2024 Lipase measurement 22 U/L - [facility] Basic Metabolic Profile (BMP )on 02-21-2024 BUN Normal 7-18 [facility] Comment on above: Result Comment: Canc elled via OM: Order cancelled - Patient discharged Performed By: #### L 500.2500 ####[facility] [address] [place], [address] BUN/CRE Normal 10-20 [facility] Comment on above: Result Comment: Canc elled via OM: Order cancelled - Patient discharged Performed By: #### L 500.2500 ####[facility] [address] [place], [address] CA,Total Normal 8.5-10.1 [facility] Comment on above: Result Comment: Canc elled via OM: Order cancelled - Patient discharged Performed By: #### L 500.2500 ####[facility] [address] [place], [address] CL Normal 98-107 [facility] Comment on above: Result Comment: Canc elled via OM: Order cancelled - Patient discharged Performed By: #### L 500.2500 ####[facility] [address] [place], [address] CO2 Normal 21.0-32.0 [facility] Comment on above: Result Comment: Canc elled via OM: Order cancelled - Patient discharged Performed By: #### L 500.2500 ####[facility] [address] [place], [address] CREAT,SERUM Normal 0.55-1.02 [facility] Comment on above: Result Comment: Canc elled via OM: Order cancelled - Patient discharged Performed By: #### L 500.2500 ####[facility] [address] [place], [address] EST GFR Normal >60 [facility] Comment on above: Result Comment: Canc elled via OM: Order cancelled - Patient discharged Performed By: #### L 500.2500 ####[facility] [address] [place], [address] EST GFR - AA Normal >60 [facility] Comment on above: Result Comment: Canc elled via OM: Order cancelled - Patient discharged Performed By: #### L 500.2500 ####[facility] [address] [place], [address] GAP Normal 5-15 [facility] Comment on above: Result Comment: Canc elled via OM: Order cancelled - Patient discharged Performed By: #### L 500.2500 ####[facility] [address] [place], [address] GLU Normal 74-106 [facility] Comment on above: Result Comment: Canc elled via OM: Order cancelled - Patient discharged Performed By: #### L 500.2500 ####[facility] [address] [place], [address] Potassium Normal 3.5-5.1 [facility] Comment on above: Result Comment: Canc elled via OM: Order cancelled - Patient discharged Performed By: #### L 500.2500 ####[facility] [address] [place], [address] Basic Metabolic Profile (BMP) Normal 136-145 [facility] Comment on above: Result Comment: Canc elled via OM: Order cancelled - Patient discharged Performed By: #### L 500.2500 ####[facility] [address] [place], [address] Basic Metabolic Profile (BMP )on 02-19-2024 BUN/CRE 8.7 RATIO Low 10-20 [facility] Comment on above: Performed By: #### L 500.2500 ####[facility] [address] [place], [address] CA,Total 9.0 mg/dL Normal 8.5-10.1 [facility] Comment on above: Performed By: #### L 500.2500 ####[facility] [address] [place], [address] Chloride [Moles/Vol] 103 mmol/L Normal 98-107 [facility] Comment on above: Performed By: #### L 500.2500 ####[facility] [address] [place], [address] CO2 [Moles/Vol] 27.0 mmol/L Normal 21.0-32.0 [facility] Comment on above: Performed By: #### L 500.2500 ####[facility] [address] [place], [address] Creatinine [Mass/Vol] 0.80 mg/dL Normal 0.55-1.02 [facility] Comment on above: Result Comment: The validity of the calculated GFR GFRAA in patients over70 years has not been determined. Clinical correlation isessential. Performed By: #### L 500.2500 ####[facility] [address] [place], [address] ECRCL 89.06 ml/min Normal [facility] Comment on above: Performed By: #### L 500.2500 ####[facility] [address] [place], [address] EST GFR - AA 96 mL/min Normal >60 [facility] Comment on above: Result Comment: Afri can Swiss GFR Calc Performed By: #### L 500.2500 ####[facility] [address] [place], [address] GAP 7 Normal 5-15 [facility] Comment on above: Performed By: #### L 500.2500 ####[facility] [address] [place], [address] GFR/1.73 sq M.predicted among non-blacks MDRD (S/P/Bld) [Vol rate/Area] 79 mL/min/{1.73_m2} Normal >60 [facility] Comment on above: Result Comment: Non- GFR Calc Performed By: #### L 500.2500 ####[facility] [address] [place], [address] Glucose [Mass/Vol] 88 mg/dL Normal 74-106 [facility] Comment on above: Performed By: #### L 500.2500 ####[facility] [address] [place], [address] Potassium [Moles/Vol] 3.2 mmol/L Low 3.5-5.1 [facility] Comment on above: Performed By: #### L 500.2500 ####[facility] [address] [place], [address] Sodium [Moles/Vol] 137 mmol/L Normal 136-145 [facility] Comment on above: Performed By: #### L 500.2500 ####[facility] [address] [place], [address] Urea nitrogen [Mass/Vol] 7 mg/dL Normal 7-18 [facility] Comment on above: Performed By: #### L 500.2500 ####[facility] [address] [place], [address] Bedside Glucoseon 02-18-2023 FINGERSTICK GLU 100 mg/dL Normal 74-106 [facility] Comment on above: Result Comment: TALIA GEMENT OF PATIENT CARE PER NURSING PROTOCOL Performed By: #### L 501.080 ####[facility] [address] [place], [address] FINGERSTICK GLU 90 mg/dL Normal 74-106 [facility] Comment on above: Result Comment: TALIA GEMENT OF PATIENT CARE PER NURSING PROTOCOL Performed By: #### L 501.080 ####[facility] [address] [place], [address] CBC W/Diff, Automatedon - Absolute Lymph 1.46 X10 3/uL Normal 0.83-4.51 [facility] Comment on above: Performed By: #### L 100.0100 ####[facility] [address] [place], [address] Absolute Neut 6.9 X10 3/uL Normal 2.0-7.7 [facility] Comment on above: Performed By: #### L 100.0100 ####[facility] [address] [place], [address] Basophils/100 WBC (Bld) 0.5 % Normal 0-1 [facility] Comment on above: Performed By: #### L 100.0100 ####[facility] [address] [place], [address] Eosinophils/100 WBC (Bld) 0.4 % Normal 0-5 [facility] Comment on above: Performed By: #### L 100.0100 ####[facility] [address] [place], [address] Erythrocyte distribution width (RBC) [Ratio] 14.3 % Normal 11.6-14.6 [facility] Comment on above: Performed By: #### L 100.0100 ####[facility] [address] [place], [address] Hematocrit (Bld) [Volume fraction] 39.6 % Normal 37-47 [facility] Comment on above: Performed By: #### L 100.0100 ####[facility] [address] [place], [address] Hemoglobin (Bld) [Mass/Vol] 12.4 g/dL Normal 12.0-15.0 [facility] Comment on above: Performed By: #### L 100.0100 ####[facility] [address] [place], [address] IG% 0.700 Normal 0.0-0.9 [facility] Comment on above: Result Comment: IG% - Immature Granulocytes (promyelocytes, myelocytes andmetamyelocytes) > 1% indicates that a LEFT SHIFT is Present. Performed By: #### L 100.0100 ####[facility] [address] [place], [address] Lymphocytes/100 WBC (Bld) 16.0 % Low 19-41 [facility] Comment on above: Performed By: #### L 100.0100 ####[facility] [address] [place], [address] MCH (RBC) [Entitic mass] 26.8 pg Low 27.0-32.0 [facility] Comment on above: Performed By: #### L 100.0100 ####[facility] [address] [place], [address] MCHC (RBC) [Mass/Vol] 31.3 g/dL Low 32-36 [facility] Comment on above: Performed By: #### L 100.0100 ####[facility] [address] [place], [address] MCV (RBC) [Entitic vol] 85.7 fL Normal 81-99 [facility] Comment on above: Performed By: #### L 100.0100 ####[facility] [address] [place], [address] Monocytes/100 WBC (Bld) 6.1 % Normal 0-10 [facility] Comment on above: Performed By: #### L 100.0100 ####[facility] [address] [place], [address] Neutrophils/100 WBC (Bld) 76.3 % High 47-70 [facility] Comment on above: Performed By: #### L 100.0100 ####[facility] [address] [place], [address] Nucleated RBC (Bld) [#/Vol] 0 10*3/uL Normal 0-5 [facility] Comment on above: Performed By: #### L 100.0100 ####[facility] [address] [place], [address] Platelet mean volume (Bld) [Entitic vol] 9.3 fL Normal 6.2-12.0 [facility] Comment on above: Performed By: #### L 100.0100 ####[facility] [address] [place], [address] Platelets (Bld) [#/Vol] 306 10*3/uL Normal 150-450 [facility] Comment on above: Performed By: #### L 100.0100 ####[facility] [address] [place], [address] RBC (Bld) [#/Vol] 4.62 10*6/uL Normal 4.2-5.4 [facility] Comment on above: Performed By: #### L 100.0100 ####[facility] [address] [place], [address] RDW SD 44.5 fl High 35.1-43.9 [facility] Comment on above: Performed By: #### L 100.0100 ####[facility] [address] [place], [address] WBC (Bld) [#/Vol] 9.1 10*3/uL Normal 4.4-11.0 [facility] Comment on above: Performed By: #### L 100.0100 ####[facility] [address] [place], [address] Bedside Glucoseon 02-18-2024 FINGERSTICK GLU 165 mg/dL High 74-106 [facility] Comment on above: Result Comment: TALIA GEMENT OF PATIENT CARE PER NURSING PROTOCOL Performed By: #### L 501.080 ####[facility] [address] [place], [address] FINGERSTICK GLU 100 mg/dL Normal 74-106 [facility] Comment on above: Result Comment: TALIA GEMENT OF PATIENT CARE PER NURSING PROTOCOL Performed By: #### L 501.080 ####[facility] [address] [place], [address] FINGERSTICK GLU 102 mg/dL Normal 74-106 [facility] Comment on above: Result Comment: TALIA GEMENT OF PATIENT CARE PER NURSING PROTOCOL Performed By: #### L 501.080 ####[facility] [address] [place], [address] FINGERSTICK GLU 136 mg/dL High 74-106 [facility] Comment on above: Result Comment: TALIA CHAMBERS OF PATIENT CARE PER NURSING PROTOCOL Performed By: #### L 501.080 ####[facility] [address] [place], [address] Basic Metabolic Profile (BMP )on 02-17-2024 BUN/CRE 14.4 RATIO Normal 10-20 [facility] Comment on above: Performed By: #### L 500.2500, L100.0100 ####[facility] [address] [place], [address] CA,Total 8.6 mg/dL Normal 8.5-10.1 [facility] Comment on above: Performed By: #### L 500.2500, L100.0100 ####[facility] [address] [place], [address] Chloride [Moles/Vol] 103 mmol/L Normal 98-107 [facility] Comment on above: Performed By: #### L 500.2500, L100.0100 ####[facility] [address] [place], [address] CO2 [Moles/Vol] 28.0 mmol/L Normal 21.0-32.0 [facility] Comment on above: Performed By: #### L 500.2500, L100.0100 ####[facility] [address] [place], [address] Creatinine [Mass/Vol] 0.62 mg/dL Normal 0.55-1.02 [facility] Comment on above: Result Comment: The validity of the calculated GFR GFRAA in patients over70 years has not been determined. Clinical correlation isessential. Performed By: #### L 500.2500, L100.0100 ####[facility] [address] [place], [address] ECRCL 114.92 ml/min Normal [facility] Comment on above: Performed By: #### L 500.2500, L100.0100 ####[facility] [address] [place], [address] EST GFR - AA 129 mL/min Normal >60 [facility] Comment on above: Result Comment: Afri can Swiss GFR Calc Performed By: #### L 500.2500, L100.0100 ####[facility] [address] [place], [address] GAP 5 Normal 5-15 [facility] Comment on above: Performed By: #### L 500.2500, L100.0100 ####[facility] [address] [place], [address] GFR/1.73 sq M.predicted among non-blacks MDRD (S/P/Bld) [Vol rate/Area] 107 mL/min/{1.73_m2} Normal >60 [facility] Comment on above: Result Comment: Non- GFR Calc Performed By: #### L 500.2500, L100.0100 ####[facility] [address] [place], [address] Glucose [Mass/Vol] 88 mg/dL Normal 74-106 [facility] Comment on above: Performed By: #### L 500.2500, L100.0100 ####[facility] [address] [place], [address] Potassium [Moles/Vol] 3.2 mmol/L Low 3.5-5.1 [facility] Comment on above: Performed By: #### L 500.2500, L100.0100 ####[facility] [address] [place], [address] Sodium [Moles/Vol] 136 mmol/L Normal 136-145 [facility] Comment on above: Performed By: #### L 500.2500, L100.0100 ####[facility] [address] [place], [address] Urea nitrogen [Mass/Vol] 9 mg/dL Normal 7-18 [facility] Comment on above: Performed By: #### L 500.2500, L100.0100 ####[facility] [address] [place], [address] Bedside Glucoseon 02-17-2024 FINGERSTICK GLU 111 mg/dL High 74-106 [facility] Comment on above: Result Comment: TALIA GEMENT OF PATIENT CARE PER NURSING PROTOCOL Performed By: #### L 501.080 ####[facility] [address] [place], [address] FINGERSTICK GLU 113 mg/dL High 74-106 [facility] Comment on above: Result Comment: TALIA GEMENT OF PATIENT CARE PER NURSING PROTOCOL Performed By: #### L 501.080 ####[facility] [address] [place], [address] FINGERSTICK GLU 114 mg/dL High 74-106 [facility] Comment on above: Result Comment: TALIA GEMENT OF PATIENT CARE PER NURSING PROTOCOL Performed By: #### L 501.080 ####[facility] [address] [place], [address] FINGERSTICK GLU 98 mg/dL Normal 74-106 [facility] Comment on above: Result Comment: TALIA GEMENT OF PATIENT CARE PER NURSING PROTOCOL Performed By: #### L 501.080 ####[facility] [address] [place], [address] CBC W/Diff, Automatedon 02-02 Absolute Lymph 1.42 X10 3/uL Normal 0.83-4.51 [facility] Comment on above: Performed By: #### L 500.2500, L100.0100 ####[facility] [address] [place], [address] Absolute Neut 7.4 X10 3/uL Normal 2.0-7.7 [facility] Comment on above: Performed By: #### L 500.2500, L100.0100 ####[facility] [address] [place], [address] Basophils/100 WBC (Bld) 0.7 % Normal 0-1 [facility] Comment on above: Performed By: #### L 500.2500, L100.0100 ####[facility] [address] [place], [address] Eosinophils/100 WBC (Bld) 1.7 % Normal 0-5 [facility] Comment on above: Performed By: #### L 500.2500, L100.0100 ####[facility] [address] [place], [address] Erythrocyte distribution width (RBC) [Ratio] 14.1 % Normal 11.6-14.6 [facility] Comment on above: Performed By: #### L 500.2500, L100.0100 ####[facility] [address] [place], [address] Hematocrit (Bld) [Volume fraction] 36.9 % Low 37-47 [facility] Comment on above: Performed By: #### L 500.2500, L100.0100 ####[facility] [address] [place], [address] Hemoglobin (Bld) [Mass/Vol] 11.6 g/dL Low 12.0-15.0 [facility] Comment on above: Performed By: #### L 500.2500, L100.0100 ####[facility] [address] [place], [address] IG% 0.400 Normal 0.0-0.9 [facility] Comment on above: Result Comment: IG% - Immature Granulocytes (promyelocytes, myelocytes andmetamyelocytes) > 1% indicates that a LEFT SHIFT is Present. Performed By: #### L 500.2500, L100.0100 ####[facility] [address] [place], [address] Lymphocytes/100 WBC (Bld) 14.7 % Low 19-41 [facility] Comment on above: Performed By: #### L 500.2500, L100.0100 ####[facility] [address] [place], [address] MCH (RBC) [Entitic mass] 27.1 pg Normal 27.0-32.0 [facility] Comment on above: Performed By: #### L 500.2500, L100.0100 ####[facility] [address] [place], [address] MCHC (RBC) [Mass/Vol] 31.4 g/dL Low 32-36 [facility] Comment on above: Performed By: #### L 500.2500, L100.0100 ####[facility] [address] [place], [address] MCV (RBC) [Entitic vol] 86.2 fL Normal 81-99 [facility] Comment on above: Performed By: #### L 500.2500, L100.0100 ####[facility] [address] [place], [address] Monocytes/100 WBC (Bld) 6.5 % Normal 0-10 [facility] Comment on above: Performed By: #### L 500.2500, L100.0100 ####[facility] [address] [place], [address] Neutrophils/100 WBC (Bld) 76.0 % High 47-70 [facility] Comment on above: Performed By: #### L 500.2500, L100.0100 ####[facility] [address] [place], [address] Nucleated RBC (Bld) [#/Vol] 0 10*3/uL Normal 0-5 [facility] Comment on above: Performed By: #### L 500.2500, L100.0100 ####[facility] [address] [place], [address] Platelet mean volume (Bld) [Entitic vol] 9.7 fL Normal 6.2-12.0 [facility] Comment on above: Performed By: #### L 500.2500, L100.0100 ####[facility] [address] [place], [address] Platelets (Bld) [#/Vol] 254 10*3/uL Normal 150-450 [facility] Comment on above: Performed By: #### L 500.2500, L100.0100 ####[facility] [address] [place], [address] RBC (Bld) [#/Vol] 4.28 10*6/uL Normal 4.2-5.4 [facility] Comment on above: Performed By: #### L 500.2500, L100.0100 ####[facility] [address] [place], [address] RDW SD 43.9 fl Normal 35.1-43.9 [facility] Comment on above: Performed By: #### L 500.2500, L100.0100 ####[facility] [address] [place], [address] WBC (Bld) [#/Vol] 9.7 10*3/uL Normal 4.4-11.0 [facility] Comment on above: Performed By: #### L 500.2500, L100.0100 ####[facility] [address] [place], [address] Discharge Instructionon 02-02 Discharge Instruction Normal [facility] Basic Metabolic Profile (BMP )on 02-16-2024 BUN/CRE 17.7 RATIO Normal 10-20 [facility] Comment on above: Performed By: #### L 100.0100, L500.2500 ####[facility] [address] [place], [address] CA,Total 8.7 mg/dL Normal 8.5-10.1 [facility] Comment on above: Performed By: #### L 100.0100, L500.2500 ####[facility] [address] [place], [address] Chloride [Moles/Vol] 104 mmol/L Normal 98-107 [facility] Comment on above: Performed By: #### L 100.0100, L500.2500 ####[facility] [address] [place], [address] CO2 [Moles/Vol] 28.0 mmol/L Normal 21.0-32.0 [facility] Comment on above: Performed By: #### L 100.0100, L500.2500 ####[facility] [address] [place], [address] Creatinine [Mass/Vol] 0.73 mg/dL Normal 0.55-1.02 [facility] Comment on above: Result Comment: The validity of the calculated GFR GFRAA in patients over70 years has not been determined. Clinical correlation isessential. Performed By: #### L 100.0100, L500.2500 ####[facility] [address] [place], [address] ECRCL 97.60 ml/min Normal [facility] Comment on above: Performed By: #### L 100.0100, L500.2500 ####[facility] [address] [place], [address] EST GFR - AA 107 mL/min Normal >60 [facility] Comment on above: Result Comment: Afri can Swiss GFR Calc Performed By: #### L 100.0100, L500.2500 ####[facility] [address] [place], [address] GAP 5 Normal 5-15 [facility] Comment on above: Performed By: #### L 100.0100, L500.2500 ####[facility] [address] [place], [address] GFR/1.73 sq M.predicted among non-blacks MDRD (S/P/Bld) [Vol rate/Area] 88 mL/min/{1.73_m2} Normal >60 [facility] Comment on above: Result Comment: Non- GFR Calc Performed By: #### L 100.0100, L500.2500 ####[facility] [address] [place], [address] Glucose [Mass/Vol] 123 mg/dL High 74-106 [facility] Comment on above: Result Comment: Fast ing Glucose result from 100 to 125 mg/dLsuggests IMPAIRED HOMEOSTASIS per A.D.A. criteria. Performed By: #### L 100.0100, L500.2500 ####[facility] [address] [place], [address] Potassium [Moles/Vol] 3.2 mmol/L Low 3.5-5.1 [facility] Comment on above: Performed By: #### L 100.0100, L500.2500 ####[facility] [address] [place], [address] Sodium [Moles/Vol] 137 mmol/L Normal 136-145 [facility] Comment on above: Performed By: #### L 100.0100, L500.2500 ####[facility] [address] [place], [address] Urea nitrogen [Mass/Vol] 13 mg/dL Normal 7-18 [facility] Comment on above: Performed By: #### L 100.0100, L500.2500 ####[facility] [address] [place], [address] Bedside Glucoseon 02-16-2024 FINGERSTICK GLU 174 mg/dL High [address] [place] [address] Comment on above: Result Comment: TALIA GEMENT OF PATIENT CARE PER NURSING PROTOCOL Performed By: #### L 501.080 ####[facility] [address] [place], [address] FINGERSTICK GLU 114 mg/dL High [facility]106 [facility] Comment on above: Result Comment: TALIA GEMENT OF PATIENT CARE PER NURSING PROTOCOL Performed By: #### L 501.080 ####[facility] [address] [place], [address] FINGERSTICK GLU 192 mg/dL High [address] [place] [address] Comment on above: Result Comment: TALIA GEMENT OF PATIENT CARE PER NURSING PROTOCOL Performed By: #### L 501.080 ####[facility] [address] [place], [address] FINGERSTICK GLU 139 mg/dL High [address] [place] [address] Comment on above: Result Comment: TALIA GEMENT OF PATIENT CARE PER NURSING PROTOCOL Performed By: #### L 501.080 ####[facility] [address] [place], [address] CBC W/Diff, Automatedon 02-02 Absolute Lymph 1.44 X10 3/uL Normal 0.83-4.51 [facility] Comment on above: Performed By: #### L 100.0100, L500.2500 ####[facility] [address] [place], [address] Absolute Neut 5.9 X10 3/uL Normal 2.0-7.7 [facility] Comment on above: Performed By: #### L 100.0100, L500.2500 ####[facility] [address] [place], [address] Basophils/100 WBC (Bld) 0.6 % Normal 0-1 [facility] Comment on above: Performed By: #### L 100.0100, L500.2500 ####[facility] [address] [place], [address] Eosinophils/100 WBC (Bld) 2.3 % Normal 0-5 [facility] Comment on above: Performed By: #### L 100.0100, L500.2500 ####[facility] [address] [place], [address] Erythrocyte distribution width (RBC) [Ratio] 14.2 % Normal 11.6-14.6 [facility] Comment on above: Performed By: #### L 100.0100, L500.2500 ####[facility] [address] [place], [address] Hematocrit (Bld) [Volume fraction] 36.3 % Low 37-47 [facility] Comment on above: Performed By: #### L 100.0100, L500.2500 ####[facility] [address] [place], [address] Hemoglobin (Bld) [Mass/Vol] 11.4 g/dL Low 12.0-15.0 [facility] Comment on above: Performed By: #### L 100.0100, L500.2500 ####[facility] [address] [place], [address] IG% 0.600 Normal 0.0-0.9 [facility] Comment on above: Result Comment: IG% - Immature Granulocytes (promyelocytes, myelocytes andmetamyelocytes) > 1% indicates that a LEFT SHIFT is Present. Performed By: #### L 100.0100, L500.2500 ####[facility] [address] [place], [address] Lymphocytes/100 WBC (Bld) 17.5 % Low 19-41 [facility] Comment on above: Performed By: #### L 100.0100, L500.2500 ####[facility] [address] [place], [place], [address] MCH (RBC) [Entitic mass] 26.9 pg Low 27.0-32.0 [facility] Comment on above: Performed By: #### L 100.0100, L500.2500 ####[facility] [address] [place], [address] MCHC (RBC) [Mass/Vol] 31.4 g/dL Low 32-36 [facility] Comment on above: Performed By: #### L 100.0100, L500.2500 ####[facility] [address] [place], [address] MCV (RBC) [Entitic vol] 85.6 fL Normal 81-99 [facility] Comment on above: Performed By: #### L 100.0100, L500.2500 ####[facility] [address] [place], [address] Monocytes/100 WBC (Bld) 7.7 % Normal 0-10 [facility] Comment on above: Performed By: #### L 100.0100, L500.2500 ####[facility] [address] [place], [address] Neutrophils/100 WBC (Bld) 71.3 % High 47-70 [facility] Comment on above: Performed By: #### L 100.0100, L500.2500 ####[facility] [address] [place], [address] Nucleated RBC (Bld) [#/Vol] 0 10*3/uL Normal 0-5 [facility] Comment on above: Performed By: #### L 100.0100, L500.2500 ####[facility] [address] [place], [address] Platelet mean volume (Bld) [Entitic vol] 9.4 fL Normal 6.2-12.0 [facility] Comment on above: Performed By: #### L 100.0100, L500.2500 ####[facility] [address] [place], [address] Platelets (Bld) [#/Vol] 241 10*3/uL Normal 150-450 [facility] Comment on above: Performed By: #### L 100.0100, L500.2500 ####[facility] [address] [place], [address] RBC (Bld) [#/Vol] 4.24 10*6/uL Normal 4.2-5.4 [facility] Comment on above: Performed By: #### L 100.0100, L500.2500 ####[facility] [address] [place], [address] RDW SD 43.9 fl Normal 35.1-43.9 [facility] Comment on above: Performed By: #### L 100.0100, L500.2500 ####[facility] [address] [place], [address] WBC (Bld) [#/Vol] 8.2 10*3/uL Normal 4.4-11.0 [facility] Comment on above: Performed By: #### L 100.0100, L500.2500 ####[facility] [address] [place], [address] Basic Metabolic Profile (BMP )on 02-15-2024 BUN/CRE 11.1 RATIO Normal 10-20 [facility] Comment on above: Performed By: #### L 501.9985, L500.2500 ####[facility] [address] [place], [address] CA,Total 8.7 mg/dL Normal 8.5-10.1 [facility] Comment on above: Performed By: #### L 501.9985, L500.2500 ####[facility] [address] [place], [address] Chloride [Moles/Vol] 102 mmol/L Normal 98-107 [facility] Comment on above: Performed By: #### L 501.9985, L500.2500 ####[facility] [address] [place], [address] CO2 [Moles/Vol] 28.0 mmol/L Normal 21.0-32.0 [facility] Comment on above: Performed By: #### L 501.9985, L500.2500 ####[facility] [address] [place], [address] Creatinine [Mass/Vol] 0.63 mg/dL Normal 0.55-1.02 [facility] Comment on above: Result Comment: The validity of the calculated GFR GFRAA in patients over70 years has not been determined. Clinical correlation isessential. Performed By: #### L 501.9985, L500.2500 ####[facility] [address] [place], [address] ECRCL 113.10 ml/min Normal [facility] Comment on above: Performed By: #### L 501.9985, L500.2500 ####[facility] [address] [place], [address] EST GFR - AA 127 mL/min Normal >60 [facility] Comment on above: Result Comment: Afri can Swiss GFR Calc Performed By: #### L 501.9985, L500.2500 ####[facility] [address] [place], [address] GAP 5 Normal 5-15 [facility] Comment on above: Performed By: #### L 501.9985, L500.2500 ####[facility] [address] [place], [address] GFR/1.73 sq M.predicted among non-blacks MDRD (S/P/Bld) [Vol rate/Area] 105 mL/min/{1.73_m2} Normal >60 [facility] Comment on above: Result Comment: Non- GFR Calc Performed By: #### L 501.9985, L500.2500 ####[facility] [address] [place], [address] Glucose [Mass/Vol] 151 mg/dL High 74-106 [facility] Comment on above: Result Comment: Fast ing Glucose result greater than or equal to 126 mg/dLsuggests DIABETES MELLITUS per A.D.A. criteria. Performed By: #### L 501.9985, L500.2500 ####[facility] [address] [place], [address] Potassium [Moles/Vol] 3.1 mmol/L Low 3.5-5.1 [facility] Comment on above: Performed By: #### L 501.9985, L500.2500 ####[facility] [address] [place], [address] Sodium [Moles/Vol] 135 mmol/L Low 136-145 [facility] Comment on above: Performed By: #### L 501.9985, L500.2500 ####[facility] [address] [place], [address] Urea nitrogen [Mass/Vol] 7 mg/dL Normal 7-18 [facility] Comment on above: Performed By: #### L 501.9985, L500.2500 ####[facility] [address] [place], [address] Bedside Glucoseon 02-15-2024 FINGERSTICK GLU 153 mg/dL High 74-106 [facility] Comment on above: Result Comment: TALIA CHAMBERS OF PATIENT CARE PER NURSING PROTOCOL Performed By: #### L 501.080 ####[facility] [address] [place], [address] FINGERSTICK GLU 191 mg/dL High 74-106 [facility] Comment on above: Result Comment: TALIA GEMENT OF PATIENT CARE PER NURSING PROTOCOL Performed By: #### L 501.080 ####[facility] [address] [place], [address] FINGERSTICK GLU 157 mg/dL High 74-106 [facility] Comment on above: Result Comment: TALIA GEMENT OF PATIENT CARE PER NURSING PROTOCOL Performed By: #### L 501.080 ####[facility] [address] [place], [address] FINGERSTICK GLU 149 mg/dL High 74-106 [facility] Comment on above: Result Comment: TALIA GEMENT OF PATIENT CARE PER NURSING PROTOCOL Performed By: #### L 501.080 ####[facility] [address] [place], [address] Hemoglobin A1con 02-15-2024 HbA1c (Bld) [Mass fraction] 9.8 % High 3.8-5.6 [facility] Comment on above: Result Comment: Norm al < 5.7 % Prediabetic 5.7 - 6.4 % Diabetic >or= 6.5 % Please note range changes. Performed By: #### L 501.9985, L500.2500 ####[facility] [address] [place], [address] Abdomen/Pelvis W IV Cont ONL Yon 02-14-2024 Abdomen/Pelvis W IV Cont ONLY Normal [facility] Basic Metabolic Profile (BMP )on 02-14-2024 BUN/CRE 9.0 RATIO Low 10-20 [facility] Comment on above: Performed By: #### L 500.2500, L100.0100 ####[facility] [address] [place], [address] CA,Total 8.9 mg/dL Normal 8.5-10.1 [facility] Comment on above: Performed By: #### L 500.2500, L100.0100 ####[facility] [address] [place], [address] Chloride [Moles/Vol] 102 mmol/L Normal 98-107 [facility] Comment on above: Performed By: #### L 500.2500, L100.0100 ####[facility] [address] [place], [address] CO2 [Moles/Vol] 24.0 mmol/L Normal 21.0-32.0 [facility] Comment on above: Performed By: #### L 500.2500, L100.0100 ####[facility] [address] [place], [address] Creatinine [Mass/Vol] 0.66 mg/dL Normal 0.55-1.02 [facility] Comment on above: Result Comment: The validity of the calculated GFR GFRAA in patients over70 years has not been determined. Clinical correlation isessential. Performed By: #### L 500.2500, L100.0100 ####[facility] [address] [place], [address] EST GFR - AA 120 mL/min Normal >60 [facility] Comment on above: Result Comment: Afri can Swiss GFR Calc Performed By: #### L 500.2500, L100.0100 ####[facility] [address] [place], [address] GAP 7 Normal 5-15 [facility] Comment on above: Performed By: #### L 500.2500, L100.0100 ####[facility] [address] [place], [address] GFR/1.73 sq M.predicted among non-blacks MDRD (S/P/Bld) [Vol rate/Area] 99 mL/min/{1.73_m2} Normal >60 [facility] Comment on above: Result Comment: Non- GFR Calc Performed By: #### L 500.2500, L100.0100 ####[facility] [address] [place], [address] Glucose [Mass/Vol] 257 mg/dL High 74-106 [facility] Comment on above: Result Comment: Gluc ose result greater than or equal to 200 mg/dLsuggests DIABETES MELLITUS per A.D.A. criteria. Performed By: #### L 500.2500, L100.0100 ####[facility] [address] [place], [address] Potassium [Moles/Vol] 3.2 mmol/L Low 3.5-5.1 [facility] Comment on above: Performed By: #### L 500.2500, L100.0100 ####[facility] [address] [place], [address] Sodium [Moles/Vol] 133 mmol/L Low 136-145 [facility] Comment on above: Performed By: #### L 500.2500, L100.0100 ####[facility] [address] [place], [address] Urea nitrogen [Mass/Vol] 6 mg/dL Low 7-18 [facility] Comment on above: Performed By: #### L 500.2500, L100.0100 ####[facility] [address] [place], [address] Bedside Glucoseon 02-14-2024 FINGERSTICK GLU 300 mg/dL High 74-106 [facility] Comment on above: Result Comment: TALIA JIMMIEENT OF PATIENT CARE PER NURSING PROTOCOL Performed By: #### L 501.080 ####[facility] [address] [place], [address] CBC W/Diff, Automatedon 02-02 Absolute Lymph 0.99 X10 3/uL Normal 0.83-4.51 [facility] Comment on above: Order Comment: REUBEN Gomez PREVIOUS SPECIMEN REJECTED DUE TOSPECIMEN BEING QNS. 02/14/24 1402 Jevon R Stoner. Performed By: #### L 100.0100 ####[facility] [address] [place], [address] Absolute Neut 6.1 X10 3/uL Normal 2.0-7.7 [facility] Comment on above: Order Comment: REDRA W. PREVIOUS SPECIMEN REJECTED DUE TOSPECIMEN BEING QNS. 02/14/24 1402 Jevon Vergarar. Performed By: #### L 100.0100 ####[facility] [address] [place], [address] Basophils/100 WBC (Bld) 0.8 % Normal 0-1 [facility] Comment on above: Order Comment: REDRA W. PREVIOUS SPECIMEN REJECTED DUE TOSPECIMEN BEING QNS. 02/14/24 1402 Jevon Vergarar. Performed By: #### L 100.0100 ####[facility] [address] [place], [address] Eosinophils/100 WBC (Bld) 1.5 % Normal 0-5 [facility] Comment on above: Order Comment: REDRA W. PREVIOUS SPECIMEN REJECTED DUE TOSPECIMEN BEING QNS. 02/14/24 1402 Jevon Vergarar. Performed By: #### L 100.0100 ####[facility] [address] [place], [address] Erythrocyte distribution width (RBC) [Ratio] 13.8 % Normal 11.6-14.6 [facility] Comment on above: Order Comment: REDRA W. PREVIOUS SPECIMEN REJECTED DUE TOSPECIMEN BEING QNS. 02/14/24 1402 Jevon Vergarar. Performed By: #### L 100.0100 ####[facility] [address] [place], [address] Hematocrit (Bld) [Volume fraction] 38.9 % Normal 37-47 [facility] Comment on above: Order Comment: REDRA W. PREVIOUS SPECIMEN REJECTED DUE TOSPECIMEN BEING QNS. 09/05/27 1402 Jevon Squires Performed By: #### L 100.0100 ####[facility] [address] [place], [address] Hemoglobin (Bld) [Mass/Vol] 12.3 g/dL Normal 12.0-15.0 [facility] Comment on above: Order Comment: REDRA W. PREVIOUS SPECIMEN REJECTED DUE TOSPECIMEN BEING QNS. 02/14/241401 Jveon Squires Performed By: #### L 100.0100 ####[facility] [address] [place], [address] IG% 0.400 Normal 0.0-0.9 [facility] Comment on above: Order Comment: REDRA W. PREVIOUS SPECIMEN REJECTED DUE TOSPECIMEN BEING QNS. 02/14/24 1402 Jevon Squires Result Comment: IG% - Immature Granulocytes (promyelocytes, myelocytes andmetamyelocytes) > 1% indicates that a LEFT SHIFT is Present. Performed By: #### L 100.0100 ####[facility] [address] [place], [address] Lymphocytes/100 WBC (Bld) 12.6 % Low 19-41 [facility] Comment on above: Order Comment: REDRA W. PREVIOUS SPECIMEN REJECTED DUE TOSPECIMEN BEING QNS. 02/14/24 1402 Jevon Squires Performed By: #### L 100.0100 ####[facility] [address] [place], [address] MCH (RBC) [Entitic mass] 26.7 pg Low 27.0-32.0 [facility] Comment on above: Order Comment: REDRA W. PREVIOUS SPECIMEN REJECTED DUE TOSPECIMEN BEING QNS. 02/14/24 1402 Jevon Squires Performed By: #### L 100.0100 ####[facility] [address] [place], [address] MCHC (RBC) [Mass/Vol] 31.6 g/dL Low 32-36 [facility] Comment on above: Order Comment: REDRA W. PREVIOUS SPECIMEN REJECTED DUE TOSPECIMEN BEING QNS. 02/14/24 1402 Jevon Squires Performed By: #### L 100.0100 ####[facility] [address] [place], [address] MCV (RBC) [Entitic vol] 84.4 fL Normal 81-99 [facility] Comment on above: Order Comment: REDRA W. PREVIOUS SPECIMEN REJECTED DUE TOSPECIMEN BEING QNS. 02/14/24 1402 Jevon Angeles. Performed By: #### L 100.0100 ####[facility] [address] [place], [address] Monocytes/100 WBC (Bld) 6.9 % Normal 0-10 [facility] Comment on above: Order Comment: REDRA W. PREVIOUS SPECIMEN REJECTED DUE TOSPECIMEN BEING QNS. 02/14/24 1402 Jevon Angeles. Performed By: #### L 100.0100 ####[facility] [address] [place], [address] Neutrophils/100 WBC (Bld) 77.8 % High 47-70 [facility] Comment on above: Order Comment: REDRA W. PREVIOUS SPECIMEN REJECTED DUE TOSPECIMEN BEING QNS. 02/14/24 1402 Jevon Angeles. Performed By: #### L 100.0100 ####[facility] [address] [place], [address] Nucleated RBC (Bld) [#/Vol] 0 10*3/uL Normal 0-5 [facility] Comment on above: Order Comment: REDRA W. PREVIOUS SPECIMEN REJECTED DUE TOSPECIMEN BEING QNS. 02/14/24 1402 Jevon Squires Performed By: #### L 100.0100 ####[facility] [address] [place], [address] Platelet mean volume (Bld) [Entitic vol] 9.4 fL Normal 6.2-12.0 [facility] Comment on above: Order Comment: REDRA W. PREVIOUS SPECIMEN REJECTED DUE TOSPECIMEN BEING QNS. 02/14/24 1402 Jevon Vergarar. Performed By: #### L 100.0100 ####[facility] [address] [place], [address] Platelets (Bld) [#/Vol] 243 10*3/uL Normal 150-450 [facility] Comment on above: Order Comment: REDRA W. PREVIOUS SPECIMEN REJECTED DUE TOSPECIMEN BEING QNS. 02/14/24 1402 Jevon Vergarar. Performed By: #### L 100.0100 ####[facility] [address] [place], [address] RBC (Bld) [#/Vol] 4.61 10*6/uL Normal 4.2-5.4 [facility] Comment on above: Order Comment: REDRA W. PREVIOUS SPECIMEN REJECTED DUE TOSPECIMEN BEING QNS. 02/14/24 1402 Jevon Vergarar. Performed By: #### L 100.0100 ####[facility] [address] [place], [address] RDW SD 42.3 fl Normal 35.1-43.9 [facility] Comment on above: Order Comment: REDRA W. PREVIOUS SPECIMEN REJECTED DUE TOSPECIMEN BEING QNS. 02/14/24 1402 Jevon Vergarar. Performed By: #### L 100.0100 ####[facility] [address] [place], [address] WBC (Bld) [#/Vol] 7.8 10*3/uL Normal 4.4-11.0 [facility] Comment on above: Order Comment: REDRA W. PREVIOUS SPECIMEN REJECTED DUE TOSPECIMEN BEING QNS. 02/14/24 1402 Jevon Vergarar. Performed By: #### L 100.0100 ####[facility] [address] [place], [address] Absolute Neut Normal 2.0-7.7 [facility] Comment on above: Result Comment: This specimen has been REJECTED due to Laboratory criteria:Quanity Not Sufficient.ER has been notified of need of recollection.02/14/241400 Jevon R Stoner Performed By: #### L 500.2500, L100.0100 ####[facility] [address] [place], [address] HCT Normal 37-47 [facility] Comment on above: Result Comment: This specimen has been REJECTED due to Laboratory criteria:Quanity Not Sufficient.ER has been notified of need of recollection.02/14/241400 Jevon R Stoner Performed By: #### L 500.2500, L100.0100 ####[facility] [address] [place], [address] HGB Normal 12.0-15.0 [facility] Comment on above: Result Comment: This specimen has been REJECTED due to Laboratory criteria:Quanity Not Sufficient.ER has been notified of need of recollection.02/14/241400 Jevon R Stoner Performed By: #### L 500.2500, L100.0100 ####[facility] [address] [place], [address] MCH Normal 27.0-32.0 [facility] Comment on above: Result Comment: This specimen has been REJECTED due to Laboratory criteria:Quanity Not Sufficient.ER has been notified of need of recollection.02/14/241400 Jevon R Stoner Performed By: #### L 500.2500, L100.0100 ####[facility] [address] [place], [address] MCHC Normal 32-36 [facility] Comment on above: Result Comment: This specimen has been REJECTED due to Laboratory criteria:Quanity Not Sufficient.ER has been notified of need of recollection.02/14/241400 Jevon R Stoner Performed By: #### L 500.2500, L100.0100 ####[facility] [address] [place], [address] MCV Normal 81-99 [facility] Comment on above: Result Comment: This specimen has been REJECTED due to Laboratory criteria:Quanity Not Sufficient.ER has been notified of need of recollection.02/14/24 140 Jevon R Stoner Performed By: #### L 500.2500, L100.0100 ####[facility] [address] [place], [address] NEUT% Normal 47-70 [facility] Comment on above: Result Comment: This specimen has been REJECTED due to Laboratory criteria:Quanity Not Sufficient.ER has been notified of need of recollection.02/14/241400 Jevon R Stoner Performed By: #### L 500.2500, L100.0100 ####[facility] [address] [place], [address] PLT Normal 150-450 [facility] Comment on above: Result Comment: This specimen has been REJECTED due to Laboratory criteria:Quanity Not Sufficient.ER has been notified of need of recollection.02/14/241400 Jevon R Stoner Performed By: #### L 500.2500, L100.0100 ####[facility] [address] [place], [address] RBC Normal 4.2-5.4 [facility] Comment on above: Result Comment: This specimen has been REJECTED due to Laboratory criteria:Quanity Not Sufficient.ER has been notified of need of recollection.02/14/241400 Jevon R Stoner Performed By: #### L 500.2500, L100.0100 ####[facility] [address] [place], [address] RDW CV Normal 11.6-14.6 [facility] Comment on above: Result Comment: This specimen has been REJECTED due to Laboratory criteria:Quanity Not Sufficient.ER has been notified of need of recollection.02/14/24 1401 Jevon Osborne Stoner Performed By: #### L 500.2500, L100.0100 ####[facility] [address] [place], [address] RDW SD Normal 35.1-43.9 [facility] Comment on above: Result Comment: This specimen has been REJECTED due to Laboratory criteria:Quanity Not Sufficient.ER has been notified of need of recollection.02/14/24 1401 Jevon Osborne Stoner Performed By: #### L 500.2500, L100.0100 ####[facility] [address] [place], [address] WBC Normal 4.4-11.0 [facility] Comment on above: Result Comment: This specimen has been REJECTED due to Laboratory criteria:Quanity Not Sufficient.ER has been notified of need of recollection.02/14/24 140 Jevon Osborne Stoner Performed By: #### L 500.2500, L100.0100 ####[facility] [address] [place], [address] Emergency Department Summary on 02-14-2024 Emergency Department Summary Normal [facility] H AND P Exam - [facility] 02-14-2024 H&P Exam - Hospitalist Normal [facility] 02-06-2024 [facility] Telephone (KAITY) ----- TRENTON JACKSON ([id number]) 1970 F [place] Date Time Provider Department 02/06/24 GERDA RIVERO During your visit today, we recorded the following information about you: Allergies As of Date: 02/06/2024 Noted Allergy Reaction LATEX 01/18/2011 9 - Itching Comments: Red and dry cracking skin Date Reviewed: 10/19/2023 Reviewed by: Jose Antonio Singh APRN.MAIL [employer]UCK [employer]IVER - Fully Assessed Reason for Visit: Appointment [...] all medications X 4 days per her [id number]. Problem List As Of Date 02/06/2024 Noted [...] artery (more content not included)... Normal [facility] Abdomen/Pelvis W IV Cont ONL Yon 01-10-2024 Abdomen/Pelvis W IV Cont ONLY Normal [facility] Basic Metabolic Profile (BMP )on 01-10-2024 BUN/CRE 11.2 RATIO Normal 10-20 [facility] Comment on above: Performed By: #### L 500.2500, L100.0100 ####[facility] [address] [place], [address] CA,Total 9.5 mg/dL Normal 8.5-10.1 [facility] Comment on above: Performed By: #### L 500.2500, L100.0100 ####[facility] [address] [place], [address] Chloride [Moles/Vol] 100 mmol/L Normal 98-107 [facility] Comment on above: Performed By: #### L 500.2500, L100.0100 ####[facility] [address] [place], [address] CO2 [Moles/Vol] 25.0 mmol/L Normal 21.0-32.0 [facility] Comment on above: Performed By: #### L 500.2500, L100.0100 ####[facility] [address] [place], [address] Creatinine [Mass/Vol] 0.89 mg/dL Normal 0.55-1.02 [facility] Comment on above: Result Comment: The validity of the calculated GFR GFRAA in patients over70 years has not been determined. Clinical correlation isessential. Performed By: #### L 500.2500, L100.0100 ####[facility] [address] [place], [address] ECRCL 82.34 ml/min Normal [facility] Comment on above: Performed By: #### L 500.2500, L100.0100 ####[facility] [address] [place], [address] EST GFR - AA 85 mL/min Normal >60 [facility] Comment on above: Result Comment: Afri can Swiss GFR Calc Performed By: #### L 500.2500, L100.0100 ####[facility] [address] [place], [address] GAP 7 Normal 5-15 [facility] Comment on above: Performed By: #### L 500.2500, L100.0100 ####[facility] [address] [place], [address] GFR/1.73 sq M.predicted among non-blacks MDRD (S/P/Bld) [Vol rate/Area] 70 mL/min/{1.73_m2} Normal >60 [facility] Comment on above: Result Comment: Non- GFR Calc Performed By: #### L 500.2500, L100.0100 ####[facility] [address] [place], [address] Glucose [Mass/Vol] 333 mg/dL High 74-106 [facility] Comment on above: Result Comment: Gluc ose result greater than or equal to 200 mg/dLsuggests DIABETES MELLITUS per A.D.A. criteria. Performed By: #### L 500.2500, L100.0100 ####[facility] [address] [place], [address] Potassium [Moles/Vol] 4.0 mmol/L Normal 3.5-5.1 [facility] Comment on above: Performed By: #### L 500.2500, L100.0100 ####[facility] [address] [place], [address] Sodium [Moles/Vol] 132 mmol/L Low 136-145 [facility] Comment on above: Performed By: #### L 500.2500, L100.0100 ####[facility] [address] [place], [address] Urea nitrogen [Mass/Vol] 10 mg/dL Normal 7-18 [facility] Comment on above: Performed By: #### L 500.2500, L100.0100 ####[facility] [address] [place], [address] CBC W/Diff, Automatedon 08-0 8-2024 Absolute Lymph 1.25 X10 3/uL Normal 0.83-4.51 [facility] Comment on above: Performed By: #### L 500.2500, L100.0100 ####[facility] [address] [place], [address] Absolute Neut 8.8 X10 3/uL High 2.0-7.7 [facility] Comment on above: Performed By: #### L 500.2500, L100.0100 ####[facility] [address] [place], [address] Basophils/100 WBC (Bld) 0.4 % Normal 0-1 [facility] Comment on above: Performed By: #### L 500.2500, L100.0100 ####[facility] [address] [place], [address] Eosinophils/100 WBC (Bld) 1.9 % Normal 0-5 [facility] Comment on above: Performed By: #### L 500.2500, L100.0100 ####[facility] [address] [place], [address] Erythrocyte distribution width (RBC) [Ratio] 13.4 % Normal 11.6-14.6 [facility] Comment on above: Performed By: #### L 500.2500, L100.0100 ####[facility] [address] [place], [address] Hematocrit (Bld) [Volume fraction] 37.0 % Normal 37-47 [facility] Comment on above: Performed By: #### L 500.2500, L100.0100 ####[facility] [address] [place], [address] Hemoglobin (Bld) [Mass/Vol] 12.5 g/dL Normal 12.0-15.0 [facility] Comment on above: Performed By: #### L 500.2500, L100.0100 ####[facility] [address] [place], [address] IG% 0.400 Normal 0.0-0.9 [facility] Comment on above: Result Comment: IG% - Immature Granulocytes (promyelocytes, myelocytes andmetamyelocytes) > 1% indicates that a LEFT SHIFT is Present. Performed By: #### L 500.2500, L100.0100 ####[facility] [address] [place], [address] Lymphocytes/100 WBC (Bld) 11.5 % Low 19-41 [facility] Comment on above: Performed By: #### L 500.2500, L100.0100 ####[facility] [address] [place], [address] MCH (RBC) [Entitic mass] 27.6 pg Normal 27.0-32.0 [facility] Comment on above: Performed By: #### L 500.2500, L100.0100 ####[facility] [address] [place], [address] MCHC (RBC) [Mass/Vol] 33.8 g/dL Normal 32-36 [facility] Comment on above: Performed By: #### L 500.2500, L100.0100 ####[facility] [address] [place], [address] MCV (RBC) [Entitic vol] 81.7 fL Normal 81-99 [facility] Comment on above: Performed By: #### L 500.2500, L100.0100 ####[facility] [address] [place], [address] Monocytes/100 WBC (Bld) 5.1 % Normal 0-10 [facility] Comment on above: Performed By: #### L 500.2500, L100.0100 ####[facility] [address] [place], [address] Neutrophils/100 WBC (Bld) 80.7 % High 47-70 [facility] Comment on above: Performed By: #### L 500.2500, L100.0100 ####[facility] [address] [place], [address] Nucleated RBC (Bld) [#/Vol] 0 10*3/uL Normal 0-5 [facility] Comment on above: Performed By: #### L 500.2500, L100.0100 ####[facility] [address] [place], [address] Platelet mean volume (Bld) [Entitic vol] 9.2 fL Normal 6.2-12.0 [facility] Comment on above: Performed By: #### L 500.2500, L100.0100 ####[facility] [address] [place], [address] Platelets (Bld) [#/Vol] 242 10*3/uL Normal 150-450 [facility] Comment on above: Performed By: #### L 500.2500, L100.0100 ####[facility] [address] [place], [address] RBC (Bld) [#/Vol] 4.53 10*6/uL Normal 4.2-5.4 [facility] Comment on above: Performed By: #### L 500.2500, L100.0100 ####[facility] [address] [place], [address] RDW SD 39.7 fl Normal 35.1-43.9 [facility] Comment on above: Performed By: #### L 500.2500, L100.0100 ####[facility] [address] [place], [address] WBC (Bld) [#/Vol] 10.9 10*3/uL Normal 4.4-11.0 [facility] Comment on above: Performed By: #### L 500.2500, L100.0100 ####[facility] [address] [place], [address] Emergency Department Summary on 01-10-2024 Emergency Department Summary Normal [facility] Urinalysis, Completeon 01-09 RBC 0-5 SEEN Normal 0-5 [facility] Comment on above: Order Comment: CLEAN CATCH Performed By: #### L 400.0001 ####[facility] [address] [place], [address] WBC 0-5 SEEN Normal 0-5 [facility] Comment on above: Order Comment: CLEAN CATCH Performed By: #### L 400.0001 ####[facility] [address] [place], [address] BACTERIA 0 SEEN Normal None Seen [facility] Comment on above: Order Comment: CLEAN CATCH Performed By: #### L 400.0001 ####[facility] [address] [place], [address] EPI,SQUAMOUS 0 SEEN Normal 5-10 [facility] Comment on above: Order Comment: CLEAN CATCH Performed By: #### L 400.0001 ####[facility] [address] [place], [address] Mucus Ql (Urine sed) 0 SEEN Normal [facility] Comment on above: Order Comment: CLEAN CATCH Performed By: #### L 400.0001 ####[facility] [address] [place], [address] Basic Metabolic Profile (BMP )on 01-07-2024 BUN Normal 7-18 [facility] Comment on above: Result Comment: Canc elled via OM: Order cancelled - Patient discharged Performed By: #### L 500.2500, L100.0100 ####[facility] [address] [place], [address] BUN/CRE Normal 10-20 [facility] Comment on above: Result Comment: Canc elled via OM: Order cancelled - Patient discharged Performed By: #### L 500.2500, L100.0100 ####[facility] [address] [place], [address] CA,Total Normal 8.5-10.1 [facility] Comment on above: Result Comment: Canc elled via OM: Order cancelled - Patient discharged Performed By: #### L 500.2500, L100.0100 ####[facility] [address] [place], [address] CL Normal 98-107 [facility] Comment on above: Result Comment: Canc elled via OM: Order cancelled - Patient discharged Performed By: #### L 500.2500, L100.0100 ####[facility] [address] [place], [address] CO2 Normal 21.0-32.0 [facility] Comment on above: Result Comment: Canc elled via OM: Order cancelled - Patient discharged Performed By: #### L 500.2500, L100.0100 ####[facility] [address] [place], [address] CREAT,SERUM Normal 0.55-1.02 [facility] Comment on above: Result Comment: Canc elled via OM: Order cancelled - Patient discharged Performed By: #### L 500.2500, L100.0100 ####[facility] [address] [place], [address] EST GFR Normal >60 [facility] Comment on above: Result Comment: Canc elled via OM: Order cancelled - Patient discharged Performed By: #### L 500.2500, L100.0100 ####[facility] [address] [place], [address] EST GFR - AA Normal >60 [facility] Comment on above: Result Comment: Canc elled via OM: Order cancelled - Patient discharged Performed By: #### L 500.2500, L100.0100 ####[facility] [address] [place], [address] GAP Normal 5-15 [facility] Comment on above: Result Comment: Canc elled via OM: Order cancelled - Patient discharged Performed By: #### L 500.2500, L100.0100 ####[facility] [address] [place], [address] GLU Normal 74-106 [facility] Comment on above: Result Comment: Canc elled via OM: Order cancelled - Patient discharged Performed By: #### L 500.2500, L100.0100 ####[facility] [address] [place], [address] Potassium Normal 3.5-5.1 [facility] Comment on above: Result Comment: Canc elled via OM: Order cancelled - Patient discharged Performed By: #### L 500.2500, L100.0100 ####[facility] [address] [place], [address] Basic Metabolic Profile (BMP) Normal 136-145 [facility] Comment on above: Result Comment: Canc elled via OM: Order cancelled - Patient discharged Performed By: #### L 500.2500, L100.0100 ####[facility] [address] [place], [address] CBC W/Diff, Automatedon 08-0 -2023 Absolute Neut Normal 2.0-7.7 [facility] Comment on above: Result Comment: Canc elled via OM: Order cancelled - Patient discharged Performed By: #### L 500.2500, L100.0100 ####[facility] [address] [place], [address] HCT Normal 37-47 [facility] Comment on above: Result Comment: Canc elled via OM: Order cancelled - Patient discharged Performed By: #### L 500.2500, L100.0100 ####[facility] [address] [place], [address] HGB Normal 12.0-15.0 [facility] Comment on above: Result Comment: Canc elled via OM: Order cancelled - Patient discharged Performed By: #### L 500.2500, L100.0100 ####[facility] [address] [place], [address] MCH Normal 27.0-32.0 [facility] Comment on above: Result Comment: Canc elled via OM: Order cancelled - Patient discharged Performed By: #### L 500.2500, L100.0100 ####[facility] [address] [place], [address] MCHC Normal 32-36 [facility] Comment on above: Result Comment: Canc elled via OM: Order cancelled - Patient discharged Performed By: #### L 500.2500, L100.0100 ####[facility] [address] [place], [address] MCV Normal 81-99 [facility] Comment on above: Result Comment: Canc elled via OM: Order cancelled - Patient discharged Performed By: #### L 500.2500, L100.0100 ####[facility] [address] [place], [address] NEUT% Normal 47-70 [facility] Comment on above: Result Comment: Canc elled via OM: Order cancelled - Patient discharged Performed By: #### L 500.2500, L100.0100 ####[facility] [address] [place], [address] PLT Normal 150-450 [facility] Comment on above: Result Comment: Canc elled via OM: Order cancelled - Patient discharged Performed By: #### L 500.2500, L100.0100 ####[facility] [address] [place], [address] RBC Normal 4.2-5.4 [facility] Comment on above: Result Comment: Canc elled via OM: Order cancelled - Patient discharged Performed By: #### L 500.2500, L100.0100 ####[facility] [address] [place], [address] RDW CV Normal 11.6-14.6 [facility] Comment on above: Result Comment: Canc elled via OM: Order cancelled - Patient discharged Performed By: #### L 500.2500, L100.0100 ####[facility] [address] [place], [address] RDW SD Normal 35.1-43.9 [facility] Comment on above: Result Comment: Canc elled via OM: Order cancelled - Patient discharged Performed By: #### L 500.2500, L100.0100 ####[facility] [address] [place], [address] WBC Normal 4.4-11.0 [facility] Comment on above: Result Comment: Canc elled via OM: Order cancelled - Patient discharged Performed By: #### L 500.2500, L100.0100 ####[facility] [address] [place], [address] Basic Metabolic Profile (BMP )on 01-06-2024 BUN Normal 7-18 [facility] Comment on above: Result Comment: Canc elled via OM: Order cancelled - Patient discharged Performed By: #### L 100.0100, L500.2500 ####[facility] [address] [place], [address] BUN/CRE Normal 10-20 [facility] Comment on above: Result Comment: Canc elled via OM: Order cancelled - Patient discharged Performed By: #### L 100.0100, L500.2500 ####[facility] [address] [place], [address] CA,Total Normal 8.5-10.1 [facility] Comment on above: Result Comment: Canc elled via OM: Order cancelled - Patient discharged Performed By: #### L 100.0100, L500.2500 ####[facility] [address] [place], [address] CL Normal 98-107 [facility] Comment on above: Result Comment: Canc elled via OM: Order cancelled - Patient discharged Performed By: #### L 100.0100, L500.2500 ####[facility] [address] [place], [address] CO2 Normal 21.0-32.0 [facility] Comment on above: Result Comment: Canc elled via OM: Order cancelled - Patient discharged Performed By: #### L 100.0100, L500.2500 ####[facility] [address] [place], [address] CREAT,SERUM Normal 0.55-1.02 [facility] Comment on above: Result Comment: Canc elled via OM: Order cancelled - Patient discharged Performed By: #### L 100.0100, L500.2500 ####[facility] [address] [place], [address] EST GFR Normal >60 [facility] Comment on above: Result Comment: Canc elled via OM: Order cancelled - Patient discharged Performed By: #### L 100.0100, L500.2500 ####[facility] [address] [place], [address] EST GFR - AA Normal >60 [facility] Comment on above: Result Comment: Canc elled via OM: Order cancelled - Patient discharged Performed By: #### L 100.0100, L500.2500 ####[facility] [address] [place], [address] GAP Normal 5-15 [facility] Comment on above: Result Comment: Canc elled via OM: Order cancelled - Patient discharged Performed By: #### L 100.0100, L500.2500 ####[facility] [address] [place], [address] GLU Normal 74-106 [facility] Comment on above: Result Comment: Canc elled via OM: Order cancelled - Patient discharged Performed By: #### L 100.0100, L500.2500 ####[facility] [address] [place], [address] Potassium Normal 3.5-5.1 [facility] Comment on above: Result Comment: Canc elled via OM: Order cancelled - Patient discharged Performed By: #### L 100.0100, L500.2500 ####[facility] [address] [place], [address] Basic Metabolic Profile (BMP) Normal 136-145 [facility] Comment on above: Result Comment: Canc elled via OM: Order cancelled - Patient discharged Performed By: #### L 100.0100, L500.2500 ####[facility] [address] [place], [address] CBC W/Diff, Automatedon 08-0 -2023 Absolute Neut Normal 2.0-7.7 [facility] Comment on above: Result Comment: Canc elled via OM: Order cancelled - Patient discharged Performed By: #### L 100.0100, L500.2500 ####[facility] [address] [place], [address] HCT Normal 37-47 [facility] Comment on above: Result Comment: Canc elled via OM: Order cancelled - Patient discharged Performed By: #### L 100.0100, L500.2500 ####[facility] [address] [place], [address] HGB Normal 12.0-15.0 [facility] Comment on above: Result Comment: Canc elled via OM: Order cancelled - Patient discharged Performed By: #### L 100.0100, L500.2500 ####[facility] [address] [place], [address] MCH Normal 27.0-32.0 [facility] Comment on above: Result Comment: Canc elled via OM: Order cancelled - Patient discharged Performed By: #### L 100.0100, L500.2500 ####[facility] [address] [place], [address] MCHC Normal 32-36 [facility] Comment on above: Result Comment: Canc elled via OM: Order cancelled - Patient discharged Performed By: #### L 100.0100, L500.2500 ####[facility] [address] [place], [address] MCV Normal 81-99 [facility] Comment on above: Result Comment: Canc elled via OM: Order cancelled - Patient discharged Performed By: #### L 100.0100, L500.2500 ####[facility] [address] [place], [address] NEUT% Normal 47-70 [facility] Comment on above: Result Comment: Canc elled via OM: Order cancelled - Patient discharged Performed By: #### L 100.0100, L500.2500 ####[facility] [address] [place], [address] PLT Normal 150-450 [facility] Comment on above: Result Comment: Canc elled via OM: Order cancelled - Patient discharged Performed By: #### L 100.0100, L500.2500 ####[facility] [address] [place], [address] RBC Normal 4.2-5.4 [facility] Comment on above: Result Comment: Canc elled via OM: Order cancelled - Patient discharged Performed By: #### L 100.0100, L500.2500 ####[facility] [address] [place], [address] RDW CV Normal 11.6-14.6 [facility] Comment on above: Result Comment: Canc elled via OM: Order cancelled - Patient discharged Performed By: #### L 100.0100, L500.2500 ####[facility] [address] [place], [address] RDW SD Normal 35.1-43.9 [facility] Comment on above: Result Comment: Canc elled via OM: Order cancelled - Patient discharged Performed By: #### L 100.0100, L500.2500 ####[facility] [address] [place], [address] WBC Normal 4.4-11.0 [facility] Comment on above: Result Comment: Canc elled via OM: Order cancelled - Patient discharged Performed By: #### L 100.0100, L500.2500 ####[facility] [address] [place], [address] Basic Metabolic Profile (BMP )on 01-05-2024 BUN Normal 7-18 [facility] Comment on above: Result Comment: Canc elled via OM: Order cancelled - Patient discharged Performed By: #### L 100.0100, L500.2500 ####[facility] [address] [place], [address] BUN/CRE Normal 10-20 [facility] Comment on above: Result Comment: Canc elled via OM: Order cancelled - Patient discharged Performed By: #### L 100.0100, L500.2500 ####[facility] [address] [place], [address] CA,Total Normal 8.5-10.1 [facility] Comment on above: Result Comment: Canc elled via OM: Order cancelled - Patient discharged Performed By: #### L 100.0100, L500.2500 ####[facility] [address] [place], [address] CL Normal 98-107 [facility] Comment on above: Result Comment: Canc elled via OM: Order cancelled - Patient discharged Performed By: #### L 100.0100, L500.2500 ####[facility] [address] [place], [address] CO2 Normal 21.0-32.0 [facility] Comment on above: Result Comment: Canc elled via OM: Order cancelled - Patient discharged Performed By: #### L 100.0100, L500.2500 ####[facility] [address] [place], [address] CREAT,SERUM Normal 0.55-1.02 [facility] Comment on above: Result Comment: Canc elled via OM: Order cancelled - Patient discharged Performed By: #### L 100.0100, L500.2500 ####[facility] [address] [place], [address] EST GFR Normal >60 [facility] Comment on above: Result Comment: Canc elled via OM: Order cancelled - Patient discharged Performed By: #### L 100.0100, L500.2500 ####[facility] [address] [place], [address] EST GFR - AA Normal >60 [facility] Comment on above: Result Comment: Canc elled via OM: Order cancelled - Patient discharged Performed By: #### L 100.0100, L500.2500 ####[facility] [address] [place], [address] GAP Normal 5-15 [facility] Comment on above: Result Comment: Canc elled via OM: Order cancelled - Patient discharged Performed By: #### L 100.0100, L500.2500 ####[facility] [address] [place], [address] GLU Normal 74-106 [facility] Comment on above: Result Comment: Canc elled via OM: Order cancelled - Patient discharged Performed By: #### L 100.0100, L500.2500 ####[facility] [address] [place], [address] Potassium Normal 3.5-5.1 [facility] Comment on above: Result Comment: Canc elled via OM: Order cancelled - Patient discharged Performed By: #### L 100.0100, L500.2500 ####[facility] [address] [place], [address] Basic Metabolic Profile (BMP) Normal 136-145 [facility] Comment on above: Result Comment: Canc elled via OM: Order cancelled - Patient discharged Performed By: #### L 100.0100, L500.2500 ####[facility] [address] [place], [address] CBC W/Diff, Automatedon 08-0 -2023 Absolute Neut Normal 2.0-7.7 [facility] Comment on above: Result Comment: Canc elled via OM: Order cancelled - Patient discharged Performed By: #### L 100.0100, L500.2500 ####[facility] [address] [place], [address] HCT Normal 37-47 [facility] Comment on above: Result Comment: Canc elled via OM: Order cancelled - Patient discharged Performed By: #### L 100.0100, L500.2500 ####[facility] [address] [place], [address] HGB Normal 12.0-15.0 [facility] Comment on above: Result Comment: Canc elled via OM: Order cancelled - Patient discharged Performed By: #### L 100.0100, L500.2500 ####[facility] [address] [place], [address] MCH Normal 27.0-32.0 [facility] Comment on above: Result Comment: Canc elled via OM: Order cancelled - Patient discharged Performed By: #### L 100.0100, L500.2500 ####[facility] [address] [place], [address] MCHC Normal 32-36 [facility] Comment on above: Result Comment: Canc elled via OM: Order cancelled - Patient discharged Performed By: #### L 100.0100, L500.2500 ####[facility] [address] [place], [address] MCV Normal 81-99 [facility] Comment on above: Result Comment: Canc elled via OM: Order cancelled - Patient discharged Performed By: #### L 100.0100, L500.2500 ####[facility] [address] [place], [address] NEUT% Normal 47-70 [facility] Comment on above: Result Comment: Canc elled via OM: Order cancelled - Patient discharged Performed By: #### L 100.0100, L500.2500 ####[facility] [address] [place], [address] PLT Normal 150-450 [facility] Comment on above: Result Comment: Canc elled via OM: Order cancelled - Patient discharged Performed By: #### L 100.0100, L500.2500 ####[facility] [address] [place], [address] RBC Normal 4.2-5.4 [facility] Comment on above: Result Comment: Canc elled via OM: Order cancelled - Patient discharged Performed By: #### L 100.0100, L500.2500 ####[facility] [address] [place], [address] RDW CV Normal 11.6-14.6 [facility] Comment on above: Result Comment: Canc elled via OM: Order cancelled - Patient discharged Performed By: #### L 100.0100, L500.2500 ####[facility] [address] [place], [address] RDW SD Normal 35.1-43.9 [facility] Comment on above: Result Comment: Canc elled via OM: Order cancelled - Patient discharged Performed By: #### L 100.0100, L500.2500 ####[facility] [address] [place], [address] WBC Normal 4.4-11.0 [facility] Comment on above: Result Comment: Canc elled via OM: Order cancelled - Patient discharged Performed By: #### L 100.0100, L500.2500 ####[facility] [address] [place], [address] Basic Metabolic Profile (BMP )on 01-04-2024 BUN Normal 7-18 [facility] Comment on above: Result Comment: Canc elled via OM: Order cancelled - Patient discharged Performed By: #### L 500.2500, L100.0100 ####[facility] [address] [place], [address] BUN/CRE Normal 10-20 [facility] Comment on above: Result Comment: Canc elled via OM: Order cancelled - Patient discharged Performed By: #### L 500.2500, L100.0100 ####[facility] [address] [place], [address] CA,Total Normal 8.5-10.1 [facility] Comment on above: Result Comment: Canc elled via OM: Order cancelled - Patient discharged Performed By: #### L 500.2500, L100.0100 ####[facility] [address] [place], [address] CL Normal 98-107 [facility] Comment on above: Result Comment: Canc elled via OM: Order cancelled - Patient discharged Performed By: #### L 500.2500, L100.0100 ####[facility] [address] [place], [address] CO2 Normal 21.0-32.0 [facility] Comment on above: Result Comment: Canc elled via OM: Order cancelled - Patient discharged Performed By: #### L 500.2500, L100.0100 ####[facility] [address] [place], [address] CREAT,SERUM Normal 0.55-1.02 [facility] Comment on above: Result Comment: Canc elled via OM: Order cancelled - Patient discharged Performed By: #### L 500.2500, L100.0100 ####[facility] [address] [place], [address] EST GFR Normal >60 [facility] Comment on above: Result Comment: Canc elled via OM: Order cancelled - Patient discharged Performed By: #### L 500.2500, L100.0100 ####[facility] [address] [place], [address] EST GFR - AA Normal >60 [facility] Comment on above: Result Comment: Canc elled via OM: Order cancelled - Patient discharged Performed By: #### L 500.2500, L100.0100 ####[facility] [address] [place], [address] GAP Normal 5-15 [facility] Comment on above: Result Comment: Canc elled via OM: Order cancelled - Patient discharged Performed By: #### L 500.2500, L100.0100 ####[facility] [address] [place], [address] GLU Normal 74-106 [facility] Comment on above: Result Comment: Canc elled via OM: Order cancelled - Patient discharged Performed By: #### L 500.2500, L100.0100 ####[facility] [address] [place], [address] Potassium Normal 3.5-5.1 [facility] Comment on above: Result Comment: Canc elled via OM: Order cancelled - Patient discharged Performed By: #### L 500.2500, L100.0100 ####[facility] [address] [place], [address] Basic Metabolic Profile (BMP) Normal 136-145 [facility] Comment on above: Result Comment: Canc elled via OM: Order cancelled - Patient discharged Performed By: #### L 500.2500, L100.0100 ####[facility] [address] [place], [address] CBC W/Diff, Automatedon 08-0 2-2023 Absolute Neut Normal 2.0-7.7 [facility] Comment on above: Result Comment: Canc elled via OM: Order cancelled - Patient discharged Performed By: #### L 500.2500, L100.0100 ####[facility] [address] [place], [address] HCT Normal 37-47 [facility] Comment on above: Result Comment: Canc elled via OM: Order cancelled - Patient discharged Performed By: #### L 500.2500, L100.0100 ####[facility] [address] [place], [address] HGB Normal 12.0-15.0 [facility] Comment on above: Result Comment: Canc elled via OM: Order cancelled - Patient discharged Performed By: #### L 500.2500, L100.0100 ####[facility] [address] [place], [address] MCH Normal 27.0-32.0 [facility] Comment on above: Result Comment: Canc elled via OM: Order cancelled - Patient discharged Performed By: #### L 500.2500, L100.0100 ####[facility] [address] [place], [address] MCHC Normal 32-36 [facility] Comment on above: Result Comment: Canc elled via OM: Order cancelled - Patient discharged Performed By: #### L 500.2500, L100.0100 ####[facility] [address] [place], [address] MCV Normal 81-99 [facility] Comment on above: Result Comment: Canc elled via OM: Order cancelled - Patient discharged Performed By: #### L 500.2500, L100.0100 ####[facility] [address] [place], [address] NEUT% Normal 47-70 [facility] Comment on above: Result Comment: Canc elled via OM: Order cancelled - Patient discharged Performed By: #### L 500.2500, L100.0100 ####[facility] [address] [place], [address] PLT Normal 150-450 [facility] Comment on above: Result Comment: Canc elled via OM: Order cancelled - Patient discharged Performed By: #### L 500.2500, L100.0100 ####[facility] [address] [place], [address] RBC Normal 4.2-5.4 [facility] Comment on above: Result Comment: Canc elled via OM: Order cancelled - Patient discharged Performed By: #### L 500.2500, L100.0100 ####[facility] [address] [place], [address] RDW CV Normal 11.6-14.6 [facility] Comment on above: Result Comment: Canc elled via OM: Order cancelled - Patient discharged Performed By: #### L 500.2500, L100.0100 ####[facility] [address] [place], [address] RDW SD Normal 35.1-43.9 [facility] Comment on above: Result Comment: Canc elled via OM: Order cancelled - Patient discharged Performed By: #### L 500.2500, L100.0100 ####[facility] [address] [place], [address] WBC Normal 4.4-11.0 [facility] Comment on above: Result Comment: Canc elled via OM: Order cancelled - Patient discharged Performed By: #### L 500.2500, L100.0100 ####[facility] [address] [place], [address] Basic Metabolic Profile (BMP )on 01-03-2024 BUN Normal 7-18 [facility] Comment on above: Result Comment: Canc elled via OM: Order cancelled - Patient discharged Performed By: #### L 500.2500, L100.0100 ####[facility] [address] [place], [address] BUN/CRE Normal 10-20 [facility] Comment on above: Result Comment: Canc elled via OM: Order cancelled - Patient discharged Performed By: #### L 500.2500, L100.0100 ####[facility] [address] [place], [address] CA,Total Normal 8.5-10.1 [facility] Comment on above: Result Comment: Canc elled via OM: Order cancelled - Patient discharged Performed By: #### L 500.2500, L100.0100 ####[facility] [address] [place], [address] CL Normal 98-107 [facility] Comment on above: Result Comment: Canc elled via OM: Order cancelled - Patient discharged Performed By: #### L 500.2500, L100.0100 ####[facility] [address] [place], [address] CO2 Normal 21.0-32.0 [facility] Comment on above: Result Comment: Canc elled via OM: Order cancelled - Patient discharged Performed By: #### L 500.2500, L100.0100 ####[facility] [address] [place], [address] CREAT,SERUM Normal 0.55-1.02 [facility] Comment on above: Result Comment: Canc elled via OM: Order cancelled - Patient discharged Performed By: #### L 500.2500, L100.0100 ####[facility] [address] [place], [address] EST GFR Normal >60 [facility] Comment on above: Result Comment: Canc elled via OM: Order cancelled - Patient discharged Performed By: #### L 500.2500, L100.0100 ####[facility] [address] [place], [address] EST GFR - AA Normal >60 [facility] Comment on above: Result Comment: Canc elled via OM: Order cancelled - Patient discharged Performed By: #### L 500.2500, L100.0100 ####[facility] [address] [place], [address] GAP Normal 5-15 [facility] Comment on above: Result Comment: Canc elled via OM: Order cancelled - Patient discharged Performed By: #### L 500.2500, L100.0100 ####[facility] [address] [place], [address] GLU Normal 74-106 [facility] Comment on above: Result Comment: Canc elled via OM: Order cancelled - Patient discharged Performed By: #### L 500.2500, L100.0100 ####[facility] [address] [place], [address] Potassium Normal 3.5-5.1 [facility] Comment on above: Result Comment: Canc elled via OM: Order cancelled - Patient discharged Performed By: #### L 500.2500, L100.0100 ####[facility] [address] [place], [address] Basic Metabolic Profile (BMP) Normal 136-145 [facility] Comment on above: Result Comment: Canc elled via OM: Order cancelled - Patient discharged Performed By: #### L 500.2500, L100.0100 ####[facility] [address] [place], [address] CBC W/Diff, Automatedon 08-0 -2023 Absolute Neut Normal 2.0-7.7 [facility] Comment on above: Result Comment: Canc elled via OM: Order cancelled - Patient discharged Performed By: #### L 500.2500, L100.0100 ####[facility] [address] [place], [address] HCT Normal 37-47 [facility] Comment on above: Result Comment: Canc elled via OM: Order cancelled - Patient discharged Performed By: #### L 500.2500, L100.0100 ####[facility] [address] [place], [address] HGB Normal 12.0-15.0 [facility] Comment on above: Result Comment: Canc elled via OM: Order cancelled - Patient discharged Performed By: #### L 500.2500, L100.0100 ####[facility] [address] [place], [address] MCH Normal 27.0-32.0 [facility] Comment on above: Result Comment: Canc elled via OM: Order cancelled - Patient discharged Performed By: #### L 500.2500, L100.0100 ####[facility] [address] [place], [address] MCHC Normal 32-36 [facility] Comment on above: Result Comment: Canc elled via OM: Order cancelled - Patient discharged Performed By: #### L 500.2500, L100.0100 ####[facility] [address] [place], [address] MCV Normal 81-99 [facility] Comment on above: Result Comment: Canc elled via OM: Order cancelled - Patient discharged Performed By: #### L 500.2500, L100.0100 ####[facility] [address] [place], [address] NEUT% Normal 47-70 [facility] Comment on above: Result Comment: Canc elled via OM: Order cancelled - Patient discharged Performed By: #### L 500.2500, L100.0100 ####[facility] [address] [place], [address] PLT Normal 150-450 [facility] Comment on above: Result Comment: Canc elled via OM: Order cancelled - Patient discharged Performed By: #### L 500.2500, L100.0100 ####[facility] [address] [place], [address] RBC Normal 4.2-5.4 [facility] Comment on above: Result Comment: Canc elled via OM: Order cancelled - Patient discharged Performed By: #### L 500.2500, L100.0100 ####[facility] [address] [place], [address] RDW CV Normal 11.6-14.6 [facility] Comment on above: Result Comment: Canc elled via OM: Order cancelled - Patient discharged Performed By: #### L 500.2500, L100.0100 ####[facility] [address] [place], [address] RDW SD Normal 35.1-43.9 [facility] Comment on above: Result Comment: Canc elled via OM: Order cancelled - Patient discharged Performed By: #### L 500.2500, L100.0100 ####[facility] [address] [place], [address] WBC Normal 4.4-11.0 [facility] Comment on above: Result Comment: Canc elled via OM: Order cancelled - Patient discharged Performed By: #### L 500.2500, L100.0100 ####[facility] [address] [place], [address] Basic Metabolic Profile (BMP )on 01-02-2024 BUN Normal 7-18 [facility] Comment on above: Result Comment: Canc elled via OM: Order cancelled - Patient discharged Performed By: #### L 100.0100, L500.2500 ####[facility] [address] [place], [address] BUN/CRE Normal 10-20 [facility] Comment on above: Result Comment: Canc elled via OM: Order cancelled - Patient discharged Performed By: #### L 100.0100, L500.2500 ####[facility] [address] [place], [address] CA,Total Normal 8.5-10.1 [facility] Comment on above: Result Comment: Canc elled via OM: Order cancelled - Patient discharged Performed By: #### L 100.0100, L500.2500 ####[facility] [address] [place], [address] CL Normal 98-107 [facility] Comment on above: Result Comment: Canc elled via OM: Order cancelled - Patient discharged Performed By: #### L 100.0100, L500.2500 ####[facility] [address] [place], [address] CO2 Normal 21.0-32.0 [facility] Comment on above: Result Comment: Canc elled via OM: Order cancelled - Patient discharged Performed By: #### L 100.0100, L500.2500 ####[facility] [address] [place], [address] CREAT,SERUM Normal 0.55-1.02 [facility] Comment on above: Result Comment: Canc elled via OM: Order cancelled - Patient discharged Performed By: #### L 100.0100, L500.2500 ####[facility] [address] [place], [address] EST GFR Normal >60 [facility] Comment on above: Result Comment: Canc elled via OM: Order cancelled - Patient discharged Performed By: #### L 100.0100, L500.2500 ####[facility] [address] [place], [address] EST GFR - AA Normal >60 [facility] Comment on above: Result Comment: Canc elled via OM: Order cancelled - Patient discharged Performed By: #### L 100.0100, L500.2500 ####[facility] [address] [place], [address] GAP Normal 5-15 [facility] Comment on above: Result Comment: Canc elled via OM: Order cancelled - Patient discharged Performed By: #### L 100.0100, L500.2500 ####[facility] [address] [place], [address] GLU Normal 74-106 [facility] Comment on above: Result Comment: Canc elled via OM: Order cancelled - Patient discharged Performed By: #### L 100.0100, L500.2500 ####[facility] [address] [place], [address] Potassium Normal 3.5-5.1 [facility] Comment on above: Result Comment: Canc elled via OM: Order cancelled - Patient discharged Performed By: #### L 100.0100, L500.2500 ####[facility] [address] [place], [address] Basic Metabolic Profile (BMP) Normal 136-145 [facility] Comment on above: Result Comment: Canc elled via OM: Order cancelled - Patient discharged Performed By: #### L 100.0100, L500.2500 ####[facility] [address] [place], [address] CBC W/Diff, Automatedon 07-3 Absolute Neut Normal 2.0-7.7 [facility] Comment on above: Result Comment: Canc elled via OM: Order cancelled - Patient discharged Performed By: #### L 100.0100, L500.2500 ####[facility] [address] [place], [address] HCT Normal 37-47 [facility] Comment on above: Result Comment: Canc elled via OM: Order cancelled - Patient discharged Performed By: #### L 100.0100, L500.2500 ####[facility] [address] [place], [address] HGB Normal 12.0-15.0 [facility] Comment on above: Result Comment: Canc elled via OM: Order cancelled - Patient discharged Performed By: #### L 100.0100, L500.2500 ####[facility] [address] [place], [address] MCH Normal 27.0-32.0 [facility] Comment on above: Result Comment: Canc elled via OM: Order cancelled - Patient discharged Performed By: #### L 100.0100, L500.2500 ####[facility] [address] [place], [address] MCHC Normal 32-36 [facility] Comment on above: Result Comment: Canc elled via OM: Order cancelled - Patient discharged Performed By: #### L 100.0100, L500.2500 ####[facility] [address] [place], [address] MCV Normal 81-99 [facility] Comment on above: Result Comment: Canc elled via OM: Order cancelled - Patient discharged Performed By: #### L 100.0100, L500.2500 ####[facility] [address] [place], [address] NEUT% Normal 47-70 [facility] Comment on above: Result Comment: Canc elled via OM: Order cancelled - Patient discharged Performed By: #### L 100.0100, L500.2500 ####[facility] [address] [place], [address] PLT Normal 150-450 [facility] Comment on above: Result Comment: Canc elled via OM: Order cancelled - Patient discharged Performed By: #### L 100.0100, L500.2500 ####[facility] [address] [place], [address] RBC Normal 4.2-5.4 [facility] Comment on above: Result Comment: Canc elled via OM: Order cancelled - Patient discharged Performed By: #### L 100.0100, L500.2500 ####[facility] [address] [place], [address] RDW CV Normal 11.6-14.6 [facility] Comment on above: Result Comment: Canc elled via OM: Order cancelled - Patient discharged Performed By: #### L 100.0100, L500.2500 ####[facility] [address] [place], [address] RDW SD Normal 35.1-43.9 [facility] Comment on above: Result Comment: Canc elled via OM: Order cancelled - Patient discharged Performed By: #### L 100.0100, L500.2500 ####[facility] [address] [place], [address] WBC Normal 4.4-11.0 [facility] Comment on above: Result Comment: Canc elled via OM: Order cancelled - Patient discharged Performed By: #### L 100.0100, L500.2500 ####[facility] [address] [place], [address] Basic Metabolic Profile (BMP )on 01-01-2024 BUN/CRE 16.2 RATIO Normal 10-20 [facility] Comment on above: Performed By: #### L 100.0100, L500.2500 ####[facility] [address] [place], [address] CA,Total 9.4 mg/dL Normal 8.5-10.1 [facility] Comment on above: Performed By: #### L 100.0100, L500.2500 ####[facility] [address] [place], [address] Chloride [Moles/Vol] 109 mmol/L High 98-107 [facility] Comment on above: Performed By: #### L 100.0100, L500.2500 ####[facility] [address] [place], [address] CO2 [Moles/Vol] 26.0 mmol/L Normal 21.0-32.0 [facility] Comment on above: Performed By: #### L 100.0100, L500.2500 ####[facility] [address] [place], [address] Creatinine [Mass/Vol] 1.05 mg/dL High 0.55-1.02 [facility] Comment on above: Result Comment: The validity of the calculated GFR GFRAA in patients over70 years has not been determined. Clinical correlation isessential. Performed By: #### L 100.0100, L500.2500 ####[facility] [address] [place], [address] ECRCL 69.62 ml/min Normal [facility] Comment on above: Performed By: #### L 100.0100, L500.2500 ####[facility] [address] [place], [address] EST GFR - AA 71 mL/min Normal >60 [facility] Comment on above: Result Comment: Afri can Swiss GFR Calc Performed By: #### L 100.0100, L500.2500 ####[facility] [address] [place], [address] GAP 5 Normal 5-15 [facility] Comment on above: Performed By: #### L 100.0100, L500.2500 ####[facility] [address] [place], [address] GFR/1.73 sq M.predicted among non-blacks MDRD (S/P/Bld) [Vol rate/Area] 58 mL/min/{1.73_m2} Low >60 [facility] Comment on above: Result Comment: Non- GFR Calc Performed By: #### L 100.0100, L500.2500 ####[facility] [address] [place], [address] Glucose [Mass/Vol] 144 mg/dL High 74-106 [facility] Comment on above: Result Comment: Fast ing Glucose result greater than or equal to 126 mg/dLsuggests DIABETES MELLITUS per A.D.A. criteria. Performed By: #### L 100.0100, L500.2500 ####[facility] [address] [place], [address] Potassium [Moles/Vol] 3.9 mmol/L Normal 3.5-5.1 [facility] Comment on above: Performed By: #### L 100.0100, L500.2500 ####[facility] [address] [place], [address] Sodium [Moles/Vol] 140 mmol/L Normal 136-145 [facility] Comment on above: Performed By: #### L 100.0100, L500.2500 ####[facility] [address] [place], [address] Urea nitrogen [Mass/Vol] 17 mg/dL Normal 7-18 [facility] Comment on above: Performed By: #### L 100.0100, L500.2500 ####[facility] [address] [place], [address] Bedside Glucoseon 01-01-2024 FINGERSTICK GLU 201 mg/dL High [address] [place] [address] Comment on above: Result Comment: TALIA CHAMBERS OF PATIENT CARE PER NURSING PROTOCOL Performed By: #### L 501.080 ####[facility] [address] [place], [address] FINGERSTICK GLU 170 mg/dL High -106 [facility] Comment on above: Result Comment: TALIA GEMENT OF PATIENT CARE PER NURSING PROTOCOL Performed By: #### L 501.080 ####[facility] [address] [place], [address] FINGERSTICK GLU 97 mg/dL Normal 74-106 [facility] Comment on above: Result Comment: TALIA GEMENT OF PATIENT CARE PER NURSING PROTOCOL Performed By: #### L 501.080 ####[facility] [address] [place], [address] CBC W/Diff, Automatedon 07-3 0-4 Absolute Lymph 1.39 X10 3/uL Normal 0.83-4.51 [facility] Comment on above: Performed By: #### L 100.0100, L500.2500 ####[facility] [address] [place], [address] Absolute Neut 3.6 X10 3/uL Normal 2.0-7.7 [facility] Comment on above: Performed By: #### L 100.0100, L500.2500 ####[facility] [address] [place], [address] Basophils/100 WBC (Bld) 0.9 % Normal 0-1 [facility] Comment on above: Performed By: #### L 100.0100, L500.2500 ####[facility] [address] [place], [address] Eosinophils/100 WBC (Bld) 3.2 % Normal 0-5 [facility] Comment on above: Performed By: #### L 100.0100, L500.2500 ####[facility] [address] [place], [address] Erythrocyte distribution width (RBC) [Ratio] 13.2 % Normal 11.6-14.6 [facility] Comment on above: Performed By: #### L 100.0100, L500.2500 ####[facility] [address] [place], [address] Hematocrit (Bld) [Volume fraction] 33.5 % Low 37-47 [facility] Comment on above: Performed By: #### L 100.0100, L500.2500 ####[facility] [address] [place], [address] Hemoglobin (Bld) [Mass/Vol] 10.8 g/dL Low 12.0-15.0 [facility] Comment on above: Performed By: #### L 100.0100, L500.2500 ####[facility] [address] [place], [address] IG% 0.300 Normal 0.0-0.9 [facility] Comment on above: Result Comment: IG% - Immature Granulocytes (promyelocytes, myelocytes andmetamyelocytes) > 1% indicates that a LEFT SHIFT is Present. Performed By: #### L 100.0100, L500.2500 ####[facility] [address] [place], [address] Lymphocytes/100 WBC (Bld) 23.7 % Normal 19-41 [facility] Comment on above: Performed By: #### L 100.0100, L500.2500 ####[facility] [address] [place], [address] MCH (RBC) [Entitic mass] 27.1 pg Normal 27.0-32.0 [facility] Comment on above: Performed By: #### L 100.0100, L500.2500 ####[facility] [address] [place], [address] MCHC (RBC) [Mass/Vol] 32.2 g/dL Normal 32-36 [facility] Comment on above: Performed By: #### L 100.0100, L500.2500 ####[facility] [address] [place], [address] MCV (RBC) [Entitic vol] 84.0 fL Normal 81-99 [facility] Comment on above: Performed By: #### L 100.0100, L500.2500 ####[facility] [address] [place], [address] Monocytes/100 WBC (Bld) 9.9 % Normal 0-10 [facility] Comment on above: Performed By: #### L 100.0100, L500.2500 ####[facility] [address] [place], [address] Neutrophils/100 WBC (Bld) 62.0 % Normal 47-70 [facility] Comment on above: Performed By: #### L 100.0100, L500.2500 ####[facility] [address] [place], [address] Nucleated RBC (Bld) [#/Vol] 0 10*3/uL Normal 0-5 [facility] Comment on above: Performed By: #### L 100.0100, L500.2500 ####[facility] [address] [place], [address] Platelet mean volume (Bld) [Entitic vol] 9.3 fL Normal 6.2-12.0 [facility] Comment on above: Performed By: #### L 100.0100, L500.2500 ####[facility] [address] [place], [address] Platelets (Bld) [#/Vol] 196 10*3/uL Normal 150-450 [facility] Comment on above: Performed By: #### L 100.0100, L500.2500 ####[facility] [address] [place], [address] RBC (Bld) [#/Vol] 3.99 10*6/uL Low 4.2-5.4 [facility] Comment on above: Performed By: #### L 100.0100, L500.2500 ####[facility] [address] [place], [address] RDW SD 40.2 fl Normal 35.1-43.9 [facility] Comment on above: Performed By: #### L 100.0100, L500.2500 ####[facility] [address] [place], [address] WBC (Bld) [#/Vol] 5.9 10*3/uL Normal 4.4-11.0 [facility] Comment on above: Performed By: #### L 100.0100, L500.2500 ####[facility] [address] [place], [address] Discharge Instructionon 12-04 Discharge Instruction Normal [facility] Basic Metabolic Profile (BMP )on 12-31-2023 BUN/CRE 14.0 RATIO Normal 10-20 [facility] Comment on above: Performed By: #### L 100.0100, L500.2500 ####[facility] [address] [place], [address] CA,Total 8.4 mg/dL Low 8.5-10.1 [facility] Comment on above: Performed By: #### L 100.0100, L500.2500 ####[facility] [address] [place], [address] Chloride [Moles/Vol] 106 mmol/L Normal 98-107 [facility] Comment on above: Performed By: #### L 100.0100, L500.2500 ####[facility] [address] [place], [address] CO2 [Moles/Vol] 25.0 mmol/L Normal 21.0-32.0 [facility] Comment on above: Performed By: #### L 100.0100, L500.2500 ####[facility] [address] [place], [address] Creatinine [Mass/Vol] 1.36 mg/dL High 0.55-1.02 [facility] Comment on above: Result Comment: The validity of the calculated GFR GFRAA in patients over70 years has not been determined. Clinical correlation isessential. Performed By: #### L 100.0100, L500.2500 ####[facility] [address] [place], [address] ECRCL 53.66 ml/min Normal [facility] Comment on above: Performed By: #### L 100.0100, L500.2500 ####[facility] [address] [place], [address] EST GFR - AA 52 mL/min Low >60 [facility] Comment on above: Result Comment: Afri can Swiss GFR Calc Performed By: #### L 100.0100, L500.2500 ####[facility] [address] [place], [address] GAP 5 Normal 5-15 [facility] Comment on above: Performed By: #### L 100.0100, L500.2500 ####[facility] [address] [place], [address] GFR/1.73 sq M.predicted among non-blacks MDRD (S/P/Bld) [Vol rate/Area] 43 mL/min/{1.73_m2} Low >60 [facility] Comment on above: Result Comment: Non- GFR Calc Performed By: #### L 100.0100, L500.2500 ####[facility] [address] [place], [address] Glucose [Mass/Vol] 138 mg/dL High 74-106 [facility] Comment on above: Result Comment: Fast ing Glucose result greater than or equal to 126 mg/dLsuggests DIABETES MELLITUS per A.D.A. criteria. Performed By: #### L 100.0100, L500.2500 ####[facility] [address] [place], [address] Potassium [Moles/Vol] 3.6 mmol/L Normal 3.5-5.1 [facility] Comment on above: Performed By: #### L 100.0100, L500.2500 ####[facility] [address] [place], [address] Sodium [Moles/Vol] 136 mmol/L Normal 136-145 [facility] Comment on above: Performed By: #### L 100.0100, L500.2500 ####[facility] [address] [place], [address] Urea nitrogen [Mass/Vol] 19 mg/dL High 7-18 [facility] Comment on above: Performed By: #### L 100.0100, L500.2500 ####[facility] [address] [place], [address] Bedside Glucoseon 12-31-2023 FINGERSTICK GLU 155 mg/dL High 74-106 [facility] Comment on above: Result Comment: TALIA GEMENT OF PATIENT CARE PER NURSING PROTOCOL Performed By: #### L 501.080 ####[facility] [address] [place], [address] FINGERSTICK GLU 153 mg/dL High 74-106 [facility] Comment on above: Result Comment: TALIA GEMENT OF PATIENT CARE PER NURSING PROTOCOL Performed By: #### L 501.080 ####[facility] [address] [place], [address] FINGERSTICK GLU 141 mg/dL High 74-106 [facility] Comment on above: Result Comment: TALIA GEMENT OF PATIENT CARE PER NURSING PROTOCOL Performed By: #### L 501.080 ####[facility] [address] [place], [address] CBC W/Diff, Automatedon - Absolute Lymph 1.79 X10 3/uL Normal 0.83-4.51 [facility] Comment on above: Performed By: #### L 100.0100, L500.2500 ####[facility] [address] [place], [address] Absolute Neut 4.2 X10 3/uL Normal 2.0-7.7 [facility] Comment on above: Performed By: #### L 100.0100, L500.2500 ####[facility] [address] [place], [address] Basophils/100 WBC (Bld) 0.9 % Normal 0-1 [facility] Comment on above: Performed By: #### L 100.0100, L500.2500 ####[facility] [address] [place], [address] Eosinophils/100 WBC (Bld) 3.2 % Normal 0-5 [facility] Comment on above: Performed By: #### L 100.0100, L500.2500 ####[facility] [address] [place], [address] Erythrocyte distribution width (RBC) [Ratio] 13.4 % Normal 11.6-14.6 [facility] Comment on above: Performed By: #### L 100.0100, L500.2500 ####[facility] [address] [place], [address] Hematocrit (Bld) [Volume fraction] 33.5 % Low 37-47 [facility] Comment on above: Performed By: #### L 100.0100, L500.2500 ####[facility] [address] [place], [address] Hemoglobin (Bld) [Mass/Vol] 10.8 g/dL Low 12.0-15.0 [facility] Comment on above: Performed By: #### L 100.0100, L500.2500 ####[facility] [address] [place], [address] IG% 0.100 Normal 0.0-0.9 [facility] Comment on above: Result Comment: IG% - Immature Granulocytes (promyelocytes, myelocytes andmetamyelocytes) > 1% indicates that a LEFT SHIFT is Present. Performed By: #### L 100.0100, L500.2500 ####[facility] [address] [place], [address] Lymphocytes/100 WBC (Bld) 26.0 % Normal 19-41 [facility] Comment on above: Performed By: #### L 100.0100, L500.2500 ####[facility] [address] [place], [address] MCH (RBC) [Entitic mass] 26.8 pg Low 27.0-32.0 [facility] Comment on above: Performed By: #### L 100.0100, L500.2500 ####[facility] [address] [place], [address] MCHC (RBC) [Mass/Vol] 32.2 g/dL Normal 32-36 [facility] Comment on above: Performed By: #### L 100.0100, L500.2500 ####[facility] [address] [place], [address] MCV (RBC) [Entitic vol] 83.1 fL Normal 81-99 [facility] Comment on above: Performed By: #### L 100.0100, L500.2500 ####[facility] [address] [place], [address] Monocytes/100 WBC (Bld) 8.9 % Normal 0-10 [facility] Comment on above: Performed By: #### L 100.0100, L500.2500 ####[facility] [address] [place], [address] Neutrophils/100 WBC (Bld) 60.9 % Normal 47-70 [facility] Comment on above: Performed By: #### L 100.0100, L500.2500 ####[facility] [address] [place], [address] Nucleated RBC (Bld) [#/Vol] 0 10*3/uL Normal 0-5 [facility] Comment on above: Performed By: #### L 100.0100, L500.2500 ####[facility] [address] [place], [address] Platelet mean volume (Bld) [Entitic vol] 9.6 fL Normal 6.2-12.0 [facility] Comment on above: Performed By: #### L 100.0100, L500.2500 ####[facility] [address] [place], [address] Platelets (Bld) [#/Vol] 231 10*3/uL Normal 150-450 [facility] Comment on above: Performed By: #### L 100.0100, L500.2500 ####[facility] [address] [place], [address] RBC (Bld) [#/Vol] 4.03 10*6/uL Low 4.2-5.4 [facility] Comment on above: Performed By: #### L 100.0100, L500.2500 ####[facility] [address] [place], [address] RDW SD 40.5 fl Normal 35.1-43.9 [facility] Comment on above: Performed By: #### L 100.0100, L500.2500 ####[facility] [address] [place], [address] WBC (Bld) [#/Vol] 6.9 10*3/uL Normal 4.4-11.0 [facility] Comment on above: Performed By: #### L 100.0100, L500.2500 ####[facility] [address] [place], [address] Bedside Glucoseon 12-30-2023 FINGERSTICK GLU 173 mg/dL High [facility]106 [facility] Comment on above: Result Comment: TALIA GEMENT OF PATIENT CARE PER NURSING PROTOCOL Performed By: #### L 501.080 ####[facility] [address] [place], [address] FINGERSTICK GLU 168 mg/dL High [facility]106 [facility] Comment on above: Result Comment: TALIA GEMENT OF PATIENT CARE PER NURSING PROTOCOL Performed By: #### L 501.080 ####[facility] [address] [place], [address] FINGERSTICK GLU 193 mg/dL High [address] [place] [address] Comment on above: Result Comment: TALIA GEMENT OF PATIENT CARE PER NURSING PROTOCOL Performed By: #### L 501.080 ####[facility] [address] [place], [address] FINGERSTICK GLU 176 mg/dL High [facility]106 [facility] Comment on above: Result Comment: TALIA GEMENT OF PATIENT CARE PER NURSING PROTOCOL Performed By: #### L 501.080 ####[facility] [address] [place], [address] FINGERSTICK GLU 198 mg/dL High [address] [place] [address] Comment on above: Result Comment: TALIA GEMENT OF PATIENT CARE PER NURSING PROTOCOL Performed By: #### L 501.080 ####[facility] [address] [place], [address] CBC W/Diff, Automatedon -2 Absolute Lymph 1.54 X10 3/uL Normal 0.83-4.51 [facility] Comment on above: Performed By: #### L 100.0100, L500.4050 ####[facility] [address] [place], [address] Absolute Neut 5.1 X10 3/uL Normal 2.0-7.7 [facility] Comment on above: Performed By: #### L 100.0100, L500.4050 ####[facility] [address] [place], [address] Basophils/100 WBC (Bld) 0.8 % Normal 0-1 [facility] Comment on above: Performed By: #### L 100.0100, L500.4050 ####[facility] [address] [place], [address] Eosinophils/100 WBC (Bld) 3.1 % Normal 0-5 [facility] Comment on above: Performed By: #### L 100.0100, L500.4050 ####[facility] [address] [place], [address] Erythrocyte distribution width (RBC) [Ratio] 13.3 % Normal 11.6-14.6 [facility] Comment on above: Performed By: #### L 100.0100, L500.4050 ####[facility] [address] [place], [address] Hematocrit (Bld) [Volume fraction] 36.3 % Low 37-47 [facility] Comment on above: Performed By: #### L 100.0100, L500.4050 ####[facility] [address] [place], [address] Hemoglobin (Bld) [Mass/Vol] 11.6 g/dL Low 12.0-15.0 [facility] Comment on above: Performed By: #### L 100.0100, L500.4050 ####[facility] [address] [place], [address] IG% 0.300 Normal 0.0-0.9 [facility] Comment on above: Result Comment: IG% - Immature Granulocytes (promyelocytes, myelocytes andmetamyelocytes) > 1% indicates that a LEFT SHIFT is Present. Performed By: #### L 100.0100, L500.4050 ####[facility] [address] [place], [address] Lymphocytes/100 WBC (Bld) 20.2 % Normal 19-41 [facility] Comment on above: Performed By: #### L 100.0100, L500.4050 ####[facility] [address] [place], [address] MCH (RBC) [Entitic mass] 27.2 pg Normal 27.0-32.0 [facility] Comment on above: Performed By: #### L 100.0100, L500.4050 ####[facility] [address] [place], [address] MCHC (RBC) [Mass/Vol] 32.0 g/dL Normal 32-36 [facility] Comment on above: Performed By: #### L 100.0100, L500.4050 ####[facility] [address] [place], [address] MCV (RBC) [Entitic vol] 85.0 fL Normal 81-99 [facility] Comment on above: Performed By: #### L 100.0100, L500.4050 ####[facility] [address] [place], [address] Monocytes/100 WBC (Bld) 9.2 % Normal 0-10 [facility] Comment on above: Performed By: #### L 100.0100, L500.4050 ####[facility] [address] [place], [address] Neutrophils/100 WBC (Bld) 66.4 % Normal 47-70 [facility] Comment on above: Performed By: #### L 100.0100, L500.4050 ####[facility] [address] [place], [address] Nucleated RBC (Bld) [#/Vol] 0 10*3/uL Normal 0-5 [facility] Comment on above: Performed By: #### L 100.0100, L500.4050 ####[facility] [address] [place], [address] Platelet mean volume (Bld) [Entitic vol] 9.1 fL Normal 6.2-12.0 [facility] Comment on above: Performed By: #### L 100.0100, L500.4050 ####[facility] [address] [place], [address] Platelets (Bld) [#/Vol] 213 10*3/uL Normal 150-450 [facility] Comment on above: Performed By: #### L 100.0100, L500.4050 ####[facility] [address] [place], [address] RBC (Bld) [#/Vol] 4.27 10*6/uL Normal 4.2-5.4 [facility] Comment on above: Performed By: #### L 100.0100, L500.4050 ####[facility] [address] [place], [address] RDW SD 41.4 fl Normal 35.1-43.9 [facility] Comment on above: Performed By: #### L 100.0100, L500.4050 ####[facility] [address] [place], [address] WBC (Bld) [#/Vol] 7.6 10*3/uL Normal 4.4-11.0 [facility] Comment on above: Performed By: #### L 100.0100, L500.4050 ####[facility] [address] [place], [address] Comprehensive Metabolic Prof ilon 12-30-2023 Albumin [Mass/Vol] 2.4 g/dL Low 3.2-5.0 [facility] Comment on above: Performed By: #### L 100.0100, L500.4050 ####[facility] [address] [place], [address] Albumin/Globulin [Mass ratio] 0.6 {ratio} Low 0.9-2.4 [facility] Comment on above: Performed By: #### L 100.0100, L500.4050 ####[facility] [address] [place], [address] ALK P 114 U/L Normal 45-117 [facility] Comment on above: Performed By: #### L 100.0100, L500.4050 ####[facility] [address] [place], [address] ALT [Catalytic activity/Vol] 18 U/L Normal 13-56 [facility] Comment on above: Performed By: #### L 100.0100, L500.4050 ####[facility] [address] [place], [address] AST [Catalytic activity/Vol] 23 U/L Normal 15-37 [facility] Comment on above: Performed By: #### L 100.0100, L500.4050 ####[facility] [address] [place], [address] Bilirubin [Mass/Vol] 1.70 mg/dL High 0.20-1.00 [facility] Comment on above: Result Comment: For patients on eltrombopag therapy, use of Dimension Chappell TBIL is not recommended. Performed By: #### L 100.0100, L500.4050 ####[facility] [address] [place], [address] BUN/CRE 17.1 RATIO Normal 10-20 [facility] Comment on above: Performed By: #### L 100.0100, L500.4050 ####[facility] [address] [place], [address] CA,Total 8.6 mg/dL Normal 8.5-10.1 [facility] Comment on above: Performed By: #### L 100.0100, L500.4050 ####[facility] [address] [place], [address] Chloride [Moles/Vol] 108 mmol/L High 98-107 [facility] Comment on above: Performed By: #### L 100.0100, L500.4050 ####[facility] [address] [place], [address] CO2 [Moles/Vol] 25.0 mmol/L Normal 21.0-32.0 [facility] Comment on above: Performed By: #### L 100.0100, L500.4050 ####[facility] [address] [place], [address] Creatinine [Mass/Vol] 0.76 mg/dL Normal 0.55-1.02 [facility] Comment on above: Result Comment: The validity of the calculated GFR GFRAA in patients over70 years has not been determined. Clinical correlation isessential. Performed By: #### L 100.0100, L500.4050 ####[facility] [address] [place], [address] ECRCL 95.80 ml/min Normal [facility] Comment on above: Performed By: #### L 100.0100, L500.4050 ####[facility] [address] [place], [address] EST GFR - AA 103 mL/min Normal >60 [facility] Comment on above: Result Comment: Afri can Swiss GFR Calc Performed By: #### L 100.0100, L500.4050 ####[facility] [address] [place], [address] GAP 3 Low 5-15 [facility] Comment on above: Performed By: #### L 100.0100, L500.4050 ####[facility] [address] [place], [address] GFR/1.73 sq M.predicted among non-blacks MDRD (S/P/Bld) [Vol rate/Area] 85 mL/min/{1.73_m2} Normal >60 [facility] Comment on above: Result Comment: Non- GFR Calc Performed By: #### L 100.0100, L500.4050 ####[facility] [address] [place], [address] Globulin (S) [Mass/Vol] 3.9 g/dL Normal 2.2-4.2 [facility] Comment on above: Performed By: #### L 100.0100, L500.4050 ####[facility] [address] [place], [address] Glucose [Mass/Vol] 178 mg/dL High 74-106 [facility] Comment on above: Result Comment: Fast ing Glucose result greater than or equal to 126 mg/dLsuggests DIABETES MELLITUS per A.D.A. criteria. Performed By: #### L 100.0100, L500.4050 ####[facility] [address] [place], [address] Potassium [Moles/Vol] 3.1 mmol/L Low 3.5-5.1 [facility] Comment on above: Performed By: #### L 100.0100, L500.4050 ####[facility] [address] [place], [address] Sodium [Moles/Vol] 136 mmol/L Normal 136-145 [facility] Comment on above: Performed By: #### L 100.0100, L500.4050 ####[facility] [address] [place], [address] T PROT 6.3 g/dL Low 6.4-8.2 [facility] Comment on above: Performed By: #### L 100.0100, L500.4050 ####[facility] [address] [place], [address] Urea nitrogen [Mass/Vol] 13 mg/dL Normal 7-18 [facility] Comment on above: Performed By: #### L 100.0100, L500.4050 ####[facility] [address] [place], [address] Abdomen/Pelvis W IV Cont ONL Yon 12-29-2023 Abdomen/Pelvis W IV Cont ONLY Normal [facility] Alcohol, Blood (Medical)-Ser umon 12-29-2023 SERUM ETOH 4.0 mg/dL Normal [facility] Comment on above: Result Comment: The serum:whole blood ethanol ratio is approximately 1.14and varies slightly with hematocrit.Medical Alcohol reference interval and critical value innon-tolerant individuals; 50 - 100 Impairment 100 Intoxication 100 - 250 Severe Poisoning 250 - 400 Deep/possible fatal coma Performed By: #### L 501.9100 ####[facility] [address] [place], [address] Bedside Glucoseon 12-29-2023 FINGERSTICK GLU 285 mg/dL High 74-106 [facility] Comment on above: Result Comment: TALIA CHAMBERS OF PATIENT CARE PER NURSING PROTOCOL Performed By: #### L 501.080 ####[facility] [address] [place], [address] CBC W/Diff, Automatedon - Absolute Lymph 1.21 X10 3/uL Normal 0.83-4.51 [facility] Comment on above: Performed By: #### L 500.4050, L501.2450, L100.0100 ####[facility] [address] [place], [address] Absolute Neut 7.7 X10 3/uL Normal 2.0-7.7 [facility] Comment on above: Performed By: #### L 500.4050, L501.2450, L100.0100 ####[facility] [address] [place], [address] Basophils/100 WBC (Bld) 0.3 % Normal 0-1 [facility] Comment on above: Performed By: #### L 500.4050, L501.2450, L100.0100 ####[facility] [address] [place], [address] Eosinophils/100 WBC (Bld) 0.7 % Normal 0-5 [facility] Comment on above: Performed By: #### L 500.4050, L501.2450, L100.0100 ####[facility] [address] [place], [address] Erythrocyte distribution width (RBC) [Ratio] 13.3 % Normal 11.6-14.6 [facility] Comment on above: Performed By: #### L 500.4050, L501.2450, L100.0100 ####[facility] [address] [place], [address] Hematocrit (Bld) [Volume fraction] 41.5 % Normal 37-47 [facility] Comment on above: Performed By: #### L 500.4050, L501.2450, L100.0100 ####[facility] [address] [place], [address] Hemoglobin (Bld) [Mass/Vol] 13.9 g/dL Normal 12.0-15.0 [facility] Comment on above: Performed By: #### L 500.4050, L501.2450, L100.0100 ####[facility] [address] [place], [address] IG% 0.200 Normal 0.0-0.9 [facility] Comment on above: Result Comment: IG% - Immature Granulocytes (promyelocytes, myelocytes andmetamyelocytes) > 1% indicates that a LEFT SHIFT is Present. Performed By: #### L 500.4050, L501.2450, L100.0100 ####[facility] [address] [place], [address] Lymphocytes/100 WBC (Bld) 12.6 % Low 19-41 [facility] Comment on above: Performed By: #### L 500.4050, L501.2450, L100.0100 ####[facility] [address] [place], [address] MCH (RBC) [Entitic mass] 27.2 pg Normal 27.0-32.0 [facility] Comment on above: Performed By: #### L 500.4050, L501.2450, L100.0100 ####[facility] [address] [place], [address] MCHC (RBC) [Mass/Vol] 33.5 g/dL Normal 32-36 [facility] Comment on above: Performed By: #### L 500.4050, L501.2450, L100.0100 ####[facility] [address] [place], [address] MCV (RBC) [Entitic vol] 81.2 fL Normal 81-99 [facility] Comment on above: Performed By: #### L 500.4050, L501.2450, L100.0100 ####[facility] [address] [place], [address] Monocytes/100 WBC (Bld) 5.5 % Normal 0-10 [facility] Comment on above: Performed By: #### L 500.4050, L501.2450, L100.0100 ####[facility] [address] [place], [address] Neutrophils/100 WBC (Bld) 80.7 % High 47-70 [facility] Comment on above: Performed By: #### L 500.4050, L501.2450, L100.0100 ####[facility] [address] [place], [address] Nucleated RBC (Bld) [#/Vol] 0 10*3/uL Normal 0-5 [facility] Comment on above: Performed By: #### L 500.4050, L501.2450, L100.0100 ####[facility] [address] [place], [address] Platelet mean volume (Bld) [Entitic vol] 8.9 fL Normal 6.2-12.0 [facility] Comment on above: Performed By: #### L 500.4050, L501.2450, L100.0100 ####[facility] [address] [place], [address] Platelets (Bld) [#/Vol] 255 10*3/uL Normal 150-450 [facility] Comment on above: Performed By: #### L 500.4050, L501.2450, L100.0100 ####[facility] [address] [place], [address] RBC (Bld) [#/Vol] 5.11 10*6/uL Normal 4.2-5.4 [facility] Comment on above: Performed By: #### L 500.4050, L501.2450, L100.0100 ####[facility] [address] [place], [address] RDW SD 39.4 fl Normal 35.1-43.9 [facility] Comment on above: Performed By: #### L 500.4050, L501.2450, L100.0100 ####[facility] [address] [place], [address] WBC (Bld) [#/Vol] 9.6 10*3/uL Normal 4.4-11.0 [facility] Comment on above: Performed By: #### L 500.4050, L501.2450, L100.0100 ####[facility] [address] [place], [address] Comprehensive Metabolic Prof ilon 12-29-2023 Albumin [Mass/Vol] 3.2 g/dL Normal 3.2-5.0 [facility] Comment on above: Performed By: #### L 500.4050, L501.2450, L100.0100 ####[facility] [address] [place], [address] Albumin/Globulin [Mass ratio] 0.7 {ratio} Low 0.9-2.4 [facility] Comment on above: Performed By: #### L 500.4050, L501.2450, L100.0100 ####[facility] [address] [place], [address] ALK P 142 U/L High 45-117 [facility] Comment on above: Performed By: #### L 500.4050, L501.2450, L100.0100 ####[facility] [address] [place], [address] ALT [Catalytic activity/Vol] 23 U/L Normal 13-56 [facility] Comment on above: Performed By: #### L 500.4050, L501.2450, L100.0100 ####[facility] [address] [place], [address] AST [Catalytic activity/Vol] 25 U/L Normal 15-37 [facility] Comment on above: Performed By: #### L 500.4050, L501.2450, L100.0100 ####[facility] [address] [place], [address] Bilirubin [Mass/Vol] 1.30 mg/dL High 0.20-1.00 [facility] Comment on above: Result Comment: For patients on eltrombopag therapy, use of Dimension [employer]appell TBIL is not recommended. Performed By: #### L 500.4050, L501.2450, L100.0100 ####[facility] [address] [place], [address] BUN/CRE 13.9 RATIO Normal 10-20 [facility] Comment on above: Performed By: #### L 500.4050, L501.2450, L100.0100 ####[facility] [address] [place], [address] CA,Total 10.0 mg/dL Normal 8.5-10.1 [facility] Comment on above: Performed By: #### L 500.4050, L501.2450, L100.0100 ####[facility] [address] [place], [address] Chloride [Moles/Vol] 101 mmol/L Normal 98-107 [facility] Comment on above: Performed By: #### L 500.4050, L501.2450, L100.0100 ####[facility] [address] [place], [address] CO2 [Moles/Vol] 27.0 mmol/L Normal 21.0-32.0 [facility] Comment on above: Performed By: #### L 500.4050, L501.2450, L100.0100 ####[facility] [address] [place], [address] Creatinine [Mass/Vol] 1.01 mg/dL Normal 0.55-1.02 [facility] Comment on above: Result Comment: The validity of the calculated GFR GFRAA in patients over70 years has not been determined. Clinical correlation isessential. Performed By: #### L 500.4050, L501.2450, L100.0100 ####[facility] [address] [place], [address] ECRCL 71.55 ml/min Normal [facility] Comment on above: Performed By: #### L 500.4050, L501.2450, L100.0100 ####[facility] [address] [place], [address] EST GFR - AA 74 mL/min Normal >60 [facility] Comment on above: Result Comment: Afri can Swiss GFR Calc Performed By: #### L 500.4050, L501.2450, L100.0100 ####[facility] [address] [place], [address] GAP 7 Normal 5-15 [facility] Comment on above: Performed By: #### L 500.4050, L501.2450, L100.0100 ####[facility] [address] [place], [address] GFR/1.73 sq M.predicted among non-blacks MDRD (S/P/Bld) [Vol rate/Area] 61 mL/min/{1.73_m2} Normal >60 [facility] Comment on above: Result Comment: Non- GFR Calc Performed By: #### L 500.4050, L501.2450, L100.0100 ####[facility] [address] [place], [address] Globulin (S) [Mass/Vol] 4.7 g/dL High 2.2-4.2 [facility] Comment on above: Performed By: #### L 500.4050, L501.2450, L100.0100 ####[facility] [address] [place], [address] Glucose [Mass/Vol] 331 mg/dL High 74-106 [facility] Comment on above: Result Comment: Gluc ose result greater than or equal to 200 mg/dLsuggests DIABETES MELLITUS per A.D.A. criteria. Performed By: #### L 500.4050, L501.2450, L100.0100 ####[facility] [facility] [address] [place], [address] Potassium [Moles/Vol] 3.8 mmol/L Normal 3.5-5.1 [facility] Comment on above: Performed By: #### L 500.4050, L501.2450, L100.0100 ####[facility] [address] [place], [address] Sodium [Moles/Vol] 135 mmol/L Low 136-145 [facility] Comment on above: Performed By: #### L 500.4050, L501.2450, L100.0100 ####[facility] [address] [place], [address] T PROT 7.9 g/dL Normal 6.4-8.2 [facility] Comment on above: Performed By: #### L 500.4050, L501.2450, L100.0100 ####[facility] [address] [place], [address] Urea nitrogen [Mass/Vol] 14 mg/dL Normal 7-18 [facility] Comment on above: Performed By: #### L 500.4050, L501.2450, L100.0100 ####[facility] [address] [place], [address] Emergency Department Summary on 12-29-2023 Emergency Department Summary Normal [facility] Femur Min 2 Viewson 12-29-19 24 Femur Min 2 Views Normal [facility] H AND P Exam - Hospitaliston 12-29-2023 H&P Exam - Hospitalist Normal [facility] Lipaseon 12-29-2023 Lipase [Catalytic activity/Vol] 38 U/L Normal 13-75 [facility] Comment on above: Result Comment: Gege edgar note:LIPASE revised reference range effective 22.New Lipase methodology. Expected to produce lower valuesthan the previous assay method.NEW Reference Range: 13 - 75 U/L Performed By: #### L 500.4050, L501.2450, L100.0100 ####[facility] [address] [place], [address] Magnesiumon 12-29-2023 Magnesium [Mass/Vol] 2.0 mg/dL Normal 1.6-2.6 [facility] Comment on above: Order Comment: Comme nts: May add to ED labsComments: may add to ED labs Performed By: #### L 501.2300, L509.7000, L501.5200 ####[facility] [address] [place], [address] Pelvis 1 or 2 Viewson 2023 Pelvis 1 or 2 Views Normal [facility] Phosphoruson 12-29-2023 Phosphate [Mass/Vol] 2.6 mg/dL Normal 2.5-4.9 [facility] Comment on above: Order Comment: Comme nts: May add to ED labsComments: may add to ED labs Performed By: #### L 501.2300, L509.7000, L501.5200 ####[facility] [address] [place], [address] Procalcitoninon 12-29-2023 Procalcitonin 0.23 ng/mL High 0.00-0.09 [facility] Comment on above: Result Comment: A [...] Performed By: #### L 501.2300, L509.7000, L501.5200 ####[facility] [address] [place], [address] Urinalysis, Completeon 12-28 RBC 10-25 SEEN Normal 0-5 [facility] Comment on above: Order Comment: LUISA CTOR TO SPECIFY Performed By: #### L 400.0001 ####[facility] [address] [place], [address] BACTERIA 0 SEEN Normal None Seen [facility] Comment on above: Order Comment: LUISA CTOR TO SPECIFY Performed By: #### L 400.0001 ####[facility] [address] [place], [address] EPI,SQUAMOUS 0 SEEN Normal 5-10 [facility] Comment on above: Order Comment: LUISA CTOR TO SPECIFY Performed By: #### L 400.0001 ####[facility] [address] [place], [address] Mucus Ql (Urine sed) 0 SEEN Normal [facility] Comment on above: Order Comment: LUISA CTOR TO SPECIFY Performed By: #### L 400.0001 ####[facility] [address] [place], [address] WBC 0 SEEN Normal 0-5 [facility] Comment on above: Order Comment: LUISA CTOR TO SPECIFY Performed By: #### L 400.0001 ####[facility] [address] [place], [address] Urine Drug Screen (VISTA)on 12-29-2023 AMPHETAMINES Negative Normal <1000 ng/mL [facility] Comment on above: Order Comment: Pleas e add to prior urine sample obtained in ED Performed By: #### L 505.5000 ####[facility] [address] [facility] [address] BARBITIURATES Negative Normal < 200 ng/mL [facility] Comment on above: Order Comment: Pleas e add to prior urine sample obtained in ED Performed By: #### L 505.5000 ####[facility] [address] [facility] [address] BENZODIAZIPINE Negative Normal < 200 ng/mL [facility] Comment on above: Order Comment: Pleas e add to prior urine sample obtained in ED Performed By: #### L 505.5000 ####[facility] [address] [place] [address] COCAINE Negative Normal < 300 ng/mL [facility] Comment on above: Order Comment: Pleas e add to prior urine sample obtained in ED Performed By: #### L 505.5000 ####[facility] [address] [place] [address] ECSTACY Negative Normal < 500 ng/mL [facility] Comment on above: Order Comment: Pleas e add to prior urine sample obtained in ED Performed By: #### L 505.5000 ####[facility] [address] [place] [address] METHADONE Negative Normal < 300 ng/mL [facility] Comment on above: Order Comment: Pleas e add to prior urine sample obtained in ED Performed By: #### L 505.5000 ####[facility] [address] [place] [id number] OPIATES Positive Abnormal < 300 ng/mL [facility] Comment on above: Order Comment: Pleas e add to prior urine sample obtained in ED Performed By: #### L 505.5000 ####[facility] [address] [place] [id number] PCP Negative Normal < 25 ng/mL [facility] Comment on above: Order Comment: Pleas e add to prior urine sample obtained in ED Performed By: #### L 505.5000 ####[facility] [address] [facility] [address] THC Positive Abnormal < 50 ng/mL [facility] Comment on above: Order Comment: Pleas e add to prior urine sample obtained in ED Performed By: #### L 505.5000 ####[facility] [address] [facility] [address] VISTA UDS PH 7 Normal [facility] Comment on above: Order Comment: Pleas e add to prior urine sample obtained in ED Performed By: #### L 505.5000 ####[facility] [address] [place] [id number] AMPHETAMINES Normal <1000 ng/mL [facility] Comment on above: Result Comment: Canc elled via OM: Order edited - Discontinuing original order Performed By: #### L 505.5000 ####[facility] [address] [facility] [address] BARBITIURATES Normal < 200 ng/mL [facility] Comment on above: Result Comment: Canc elled via OM: Order edited - Discontinuing original order Performed By: #### L 505.5000 ####[facility] [address] [place] [id number] BENZODIAZIPINE Normal < 200 ng/mL [facility] Comment on above: Result Comment: Canc elled via OM: Order edited - Discontinuing original order Performed By: #### L 505.5000 ####[facility] [address] [place] [address] COCAINE Normal < 300 ng/mL [facility] Comment on above: Result Comment: Canc elled via OM: Order edited - Discontinuing original order Performed By: #### L 505.5000 ####[facility] [address] [place], [address] DRUG CONFIRM Normal [facility] Comment on above: Result Comment: Canc elled via OM: Order edited - Discontinuing original order Performed By: #### L 505.5000 ####[facility] [address] [place], [address] ECSTACY Normal < 500 ng/mL [facility] Comment on above: Result Comment: Canc elled via OM: Order edited - Discontinuing original order Performed By: #### L 505.5000 ####[facility] [address] [place], [address] METHADONE Normal < 300 ng/mL [facility] Comment on above: Result Comment: Canc elled via OM: Order edited - Discontinuing original order Performed By: #### L 505.5000 ####[facility] [address] [place], [address] OPIATES Normal < 300 ng/mL [facility] Comment on above: Result Comment: Canc elled via OM: Order edited - Discontinuing original order Performed By: #### L 505.5000 ####[facility] [address] [place], [address] PCP Normal < 25 ng/mL [facility] Comment on above: Result Comment: Canc elled via OM: Order edited - Discontinuing original order Performed By: #### L 505.5000 ####[facility] [address] [place], [address] THC Normal < 50 ng/mL [facility] Comment on above: Result Comment: Canc elled via OM: Order edited - Discontinuing original order Performed By: #### L 505.5000 ####[facility] [address] [place], [address] VISTA UDS PH Normal [facility] Comment on above: Result Comment: Canc elled via OM: Order edited - Discontinuing original order Performed By: #### L 505.5000 ####[facility] [address] [place], [address] [facility] ----- TRENTON JACKSON ([id number]) 1970 F [facility] Date Time Provider Department 11/20/23 STEPHANIE WHITING [facility] During your visit today, we recorded the following information about you: Stephanie De La Cruz 11/20/2023 8:48 AM Signed The patient was discharged from [facility] 10-20-23 with an order to schedule with the Heart Failure Clinic. The Clinic reached out to the patient with no response. Therefore, this is considered a deferral of the Clinic's services at this time. Allergies As of Date: 11/20/2023 Noted Allergy Reaction LATEX 01/18/2011 9 - Itching Comments: Red and dry cracking skin Date Reviewed: 10/19/2023 Reviewed by: Jose Antonio Singh APRN.[facility] - Fully Assessed Reason for Visit: Orders [671] Cmt: [facility] deferral Prescriptions as of 11/20/2023 - baclofen [...] all medications X 4 days per her [id number]-[id number]. Problem List As Of Date 11/20/2023 Noted [...] (more content not included)... Normal [facility] CNPNadine 10-22-2023 [place] Telephone ([facility]) ----- CORRIETRENTON ([id number]) 1970 F [place] Date Time Provider Department 10/22/23 STEPHANIE WHITING [facility] During your visit today, we recorded the following information about you: Stephanie De La Cruz 10/22/2023 9:37 AM Signed Patient was discharged from [facility] 10-20-23 with an order to schedule with the [facility] Failure Clinic. However, the patient was then immediately admitted to a retirement facility. A letter was mailed to the patient asking them to contact the Clinic upon discharge from the facility. Allergies As of Date: 10/22/2023 Noted Allergy Reaction LATEX 01/18/2011 9 - Itching Comments: Red and dry cracking skin Date Reviewed: 10/19/2023 Reviewed by: Jose Antonio Singh APRN.MAIL TRUCK DRIVER - Fully Assessed Reason for Visit: Orders [191] Cmt: [facility] order contact/SNF ltr Prescriptions as of [...] all medications X 4 days per her [id number]. Problem List As Of Date 10/22/2023 Noted [...] (more content not included)... Normal [facility] Basic metabolic 2000 panelon 10-19-2023 Anion gap [Moles/Vol] 12 mmol/L Normal 9-18 [facility] Comment on above: Order Comment: Speci men Type: BLOOD SPECIMEN Ordering Facility: [facility] Address: [address] [place] [address] Performed By: #### 2 4321-2 #### [facility] CLIA [id number] 1 [place] [address] [place] Calcium [Mass/Vol] 8.9 mg/dL Normal 8.5-10.2 [facility] Comment on above: Order Comment: Speci men Type: BLOOD SPECIMEN Ordering Facility: [facility] Address: [address] [place] [address] Performed By: #### 2 4321-2 #### [facility] CLIA [id number] [address] [place] [address] [place] Chloride [Moles/Vol] 103 mmol/L Normal 97-105 [facility] Comment on above: Order Comment: Speci men Type: BLOOD SPECIMEN Ordering Facility: [facility] Address: [address] [place] [address] Performed By: #### 2 4321-2 #### [facility] CLIA [id number] [address] [place] CO2 [Moles/Vol] 22 mmol/L Normal 22-30 [facility] Comment on above: Order Comment: Speci men Type: BLOOD SPECIMEN Ordering Facility: [facility] Address: [address] [place] [address] Performed By: #### 2 4321-2 #### [facility] CLIA [id number] [address] [place] Creatinine [Mass/Vol] 1.07 mg/dL High 0.58-0.96 [facility] Comment on above: Order Comment: Speci men Type: BLOOD SPECIMEN Ordering Facility: [facility] Address: [address] [place] [address] Performed By: #### 2 4321-2 #### [facility] CLIA [id number] [address] [place] Creatinine and Glomerular filtration rate.predicted panel (S/P/Bld) 63 mL/min/1.73m??? Normal >=60 [facility] Comment on above: Order Comment: Speci men Type: BLOOD SPECIMEN Ordering Facility: [facility] Address: [address] [place] [address] Result Comment: Crissy mated Glomerular Filtration Rate [...] GFR. Performed By: #### 2 4321-2 #### [facility] CLIA [id number] [address] [place] [address] [place] Glucose [Mass/Vol] 104 mg/dL High 74-99 [facility] Comment on above: Order Comment: Speci men Type: BLOOD SPECIMEN Ordering Facility: [facility] Address: [address] [place] [address] Result Comment: The [place] Diabetes Association (ADA) provides guidance for cutoff [...] Standards of Medical Care in Diabetes 2016, [place] Diabetes Association. Diabetes Care. 2016.39(Suppl 1). Performed By: #### 2 4321-2 #### [facility] CLIA [id number] [address] [place] [address] [place] Potassium [Moles/Vol] 4.2 mmol/L Normal 3.7-5.1 [facility] Comment on above: Order Comment: Radha tony Type: BLOOD SPECIMEN Ordering Facility: [facility] Address: [address] [place] [id number] Performed By: #### 2 4321-2 #### [facility] CLIA [id number] [address] [place] [address] [place] Sodium [Moles/Vol] 137 mmol/L Normal 136-144 [facility] Comment on above: Order Comment: Speci men Type: BLOOD SPECIMEN Ordering Facility: [facility] Address: [address] [place] [id number] Performed By: #### 2 4321-2 #### [facility] CLIA [id number] [address] Urea nitrogen [Mass/Vol] 49 mg/dL High 7-21 [facility] Comment on above: Order Comment: Speci men Type: BLOOD SPECIMEN Ordering Facility: [facility] Address: [address] [place] [address] Performed By: #### 2 4321-2 #### [facility] CLIA [id number] [address] CNDSon 10-19-2023 CNDS HNO ID: [id number] Author: TATIANA RAMSAY MD Service: Hospital Medicine Author Type: Nurse Practitioner Type: Discharge Summary Filed: 10/22/2023 09:18 Note Text: ----- Attestation signed by Tatiana Ramsay MD at 10/22/2023 9:18 AM Attending Note I have reviewed the PA/SLIDE DEVELOPER note. Additions or changes: None Signature: Tatiana [...] internal medicine. Schedule an appointment by calling [phone]. You can also be seen at [facility] [place], [place]. Information for this clinic has been attached to your discharge instructions. -Follow-up with Dr. May with orthopedics in 4 weeks -Follow up with the heart failure clinic. AN APPOINTMENT REQUEST HAS BEEN MADE FOR YOU. IF YOU HAVE NOT HEARD FROM THE SCHEDULERS BY SUNDAY PLEASE CALL [phone] TO CONFIRM YOUR APPOINTMENT DATE/TIME -Please work [...] (more content not included)... Normal [facility] CONSULTon 10-19-2023 CONSULT HNO ID: [id number] Author: LATRICIA HERNANDEZ MD Service: Clinical Cardiology Author Type: Physician Type: Consults Filed: 10/19/2023 12:22 Note Text: CONSULT: CARDIOLOGY SERVICE SERVICE DATE: 10/19/2023 SERVICE TIME: 10:30 AM CONSULTING PHYSICIAN: Latricia Hernandez PCP: [facility]aly [facility] ATTENDING: Tatiana Ramsay, * REASON FOR [...] (more content not included)... Normal [facility] CONSULT PROGon 10-19-2023 CONSULT PROG HNO ID: [id number] Author: DARLYN CANTOR APRN.MAIL TRUCK DRIVER Service: Wound/Ostomy Author Type: Nurse Practitioner Type: Consult Progress Note Filed: 10/19/2023 11:27 Note Text: WOUND CARE SERVICE CONSULT DISH NETWORK INSTALLER NOTE SERVICE DATE: 10/19/2023 SERVICE TIME: 849 [...] who is seen today with Emma Parikh Wound/dual rate supervisor, and presented to hospital with complaints of [...] Anterior;Proximal;Right;U pper Leg Routine Active Darlyn Cantor, DISH NETWORK INSTALLER.MAIL TRUCK DRIVER - Sp (more content not included)... Normal [facility] ECHOon 10-19-2023 Echocardiography Echocardiography Rep ort: Transthoracic Echo [facility] Date of service: 10/19/2023 10:23:25 AM [facility] Ordering physician: JOSE ANTONIO SINGH Indication: Limited for pericardial effusion Technologist: Mode Galvez [facility] Interpreting physician: Colin Drake MD PATIENT: [...] * * Final * * * CC [employer] Medical Image : [id number] Normal [facility] ED NOTEon 10-19-2023 ED NOTE HNO ID: [id number] Author: JIMY CHING RN Service: Emergency Medicine Author Type: Registered Nurse Type: ED Notes Filed: 10/19/2023 00:29 Note Text: . Normal [facility] ED NOTE HNO ID: [id number] Author: JIMY CHING RN Service: Emergency Medicine Author Type: Registered Nurse Type: ED Notes Filed: 10/19/2023 00:30 Note Text: Report to floor attempted RN not available to take report Normal [facility] Hepatic function 2000 panelo n 10-19-2023 Albumin [Mass/Vol] 3.4 g/dL Low 3.9-4.9 [facility] Comment on above: Order Comment: Radha tony Type: BLOOD SPECIMEN Ordering Facility: [facility] Address: [address] [place] [address] Performed By: #### 2 4321-2 #### [facility] CLIA [id number] [address] STATES OF [facility] ALP [Catalytic activity/Vol] 134 U/L High 34-123 [facility] Comment on above: Order Comment: Radha tony Type: BLOOD SPECIMEN Ordering Facility: [facility] Address: [address] [place] [address] Performed By: #### 2 4321-2 #### [facility] CLIA [id number] [address] OF [facility] ALT With P-5'-P [Catalytic activity/Vol] 17 U/L Normal 7-38 [facility] Comment on above: Order Comment: Speci men Type: BLOOD SPECIMEN Ordering Facility: [facility] Address: [address] [place] [address] Performed By: #### 2 4321-2 #### [facility] CLIA [id number] [address] OF [facility] AST With P-5'-P [Catalytic activity/Vol] 19 U/L Normal 13-35 [facility] Comment on above: Order Comment: Speci men Type: BLOOD SPECIMEN Ordering Facility: [facility] Address: [address] [place] [address] Performed By: #### 2 4321-2 #### [facility] CLIA [id number] [address] [place] Bilirubin [Mass/Vol] 0.5 mg/dL Normal 0.2-1.3 [facility] Comment on above: Order Comment: Speci men Type: BLOOD SPECIMEN Ordering Facility: [facility] Address: [address] [place] [address] Performed By: #### 2 4321-2 #### [facility] CLIA [id number] [address] Bilirubin.conjugated [Mass/Vol] mg/dL Normal <0.2 [facility] Comment on above: Order Comment: Speci men Type: BLOOD SPECIMEN Ordering Facility: [facility] Address: [address] [place] [address] Performed By: #### 2 4321-2 #### [facility] CLIA [id number] [address] [place] Protein [Mass/Vol] 6.7 g/dL Normal 6.3-8.0 [facility] Comment on above: Order Comment: Speci men Type: BLOOD SPECIMEN Ordering Facility: [facility] Address: [address] [place] [address] Performed By: #### 2 4321-2 #### [facility] CLIA [id number] [address] OF [facility] CBC W Auto Differential pane l (Bld)on 10-18-2023 Basophils (Bld) [#/Vol] 0.05 10*3/uL Normal <0.11 [facility] Comment on above: Order Comment: Speci men Type: BLOOD SPECIMEN Ordering Facility: [facility] Address: [address] [place] [address] Performed By: #### 2 4321-2 #### [facility] CLIA [id number] [address] Basophils/100 WBC (Bld) 0.6 % Normal A [facility] Comment on above: Order Comment: Speci men Type: BLOOD SPECIMEN Ordering Facility: [facility] Address: [address] [place] [address] Performed By: #### 2 4321-2 #### [facility] CLIA [id number] [address] Differential cell count method Nom (Bld) Auto Normal [facility] Comment on above: Order Comment: Speci men Type: BLOOD SPECIMEN Ordering Facility: [facility] Address: [address] [place] [address] Performed By: #### 2 4321-2 #### [facility] CLIA [id number] [address] [place] Eosinophils (Bld) [#/Vol] 0.10 10*3/uL Normal <0.46 [facility] Comment on above: Order Comment: Speci men Type: BLOOD SPECIMEN Ordering Facility: [facility] Address: [address] [place] [address] Performed By: #### 2 4321-2 #### [facility] CLIA [id number] [address] Eosinophils/100 WBC (Bld) 1.2 % Normal [facility] Comment on above: Order Comment: Speci men Type: BLOOD SPECIMEN Ordering Facility: [facility] Address: [address] [place] [address] Performed By: #### 2 4321-2 #### [facility] [facility] CLIA [id number] [address] [place] Erythrocyte distribution width (RBC) [Ratio] 16.2 % High 11.5-15.0 [facility] Comment on above: Order Comment: Speci men Type: BLOOD SPECIMEN Ordering Facility: [facility] Address: [address] [place] [address] Performed By: #### 2 4321-2 #### [facility] CLIA [id number] [address] [place] Hematocrit (Bld) [Volume fraction] 36.5 % Normal 36.0-46.0 [facility] Comment on above: Order Comment: Speci men Type: BLOOD SPECIMEN Ordering Facility: [facility] Address: [address] [place] [address] Performed By: #### 2 4321-2 #### [facility] CLIA [id number] [address] [place] Hemoglobin (Bld) [Mass/Vol] 11.6 g/dL Normal 11.5-15.5 [facility] Comment on above: Order Comment: Speci men Type: BLOOD SPECIMEN Ordering Facility: [facility] Address: [address] [place] [address] Performed By: #### 2 4321-2 #### [facility] CLIA [id number] [address] [place] Immature granulocytes (Bld) [#/Vol] 0.03 10*3/uL Normal <0.10 [facility] Comment on above: Order Comment: Speci men Type: BLOOD SPECIMEN Ordering Facility: [facility] Address: [address] [place] [address] Performed By: #### 2 4321-2 #### [facility] CLIA [id number] [address] Immature granulocytes/100 WBC (Bld) 0.4 % Normal [facility] Comment on above: Order Comment: Speci men Type: BLOOD SPECIMEN Ordering Facility: [facility] Address: [address] [place] [address] Performed By: #### 2 4321-2 #### [facility] CLIA [id number] [address] [place] Lymphocytes (Bld) [#/Vol] 1.82 10*3/uL Normal 1.00-4.00 [facility] Comment on above: Order Comment: Speci men Type: BLOOD SPECIMEN Ordering Facility: [facility] Address: [address] [place] [address] Performed By: #### 2 4321-2 #### [facility] CLIA [id number] [address] Lymphocytes/100 WBC (Bld) 22.3 % Normal [facility] Comment on above: Order Comment: Speci men Type: BLOOD SPECIMEN Ordering Facility: [facility] Address: [address] [place] [address] Performed By: #### 2 4321-2 #### [facility] CLIA [id number] [address] MCH (RBC) [Entitic mass] 27.3 pg Normal 26.0-34.0 [facility] Comment on above: Order Comment: Speci men Type: BLOOD SPECIMEN Ordering Facility: [facility] Address: [address] [place] [address] Performed By: #### 2 4321-2 #### [facility] CLIA [id number] [address] OF [facility] MCHC (RBC) [Mass/Vol] 31.8 g/dL Normal 30.5-36.0 [facility] Comment on above: Order Comment: Speci men Type: BLOOD SPECIMEN Ordering Facility: [facility] Address: [address] [place] [address] Performed By: #### 2 4321-2 #### [facility] CLIA [id number] [address] OF [facility] MCV (RBC) [Entitic vol] 85.9 fL Normal 80.0-100.0 [facility] Comment on above: Order Comment: Speci men Type: BLOOD SPECIMEN Ordering Facility: [facility] Address: [address] [place] [address] Performed By: #### 2 4321-2 #### [facility] CLIA [id number] [address] [place] Monocytes (Bld) [#/Vol] 0.78 10*3/uL Normal <0.87 [facility] Comment on above: Order Comment: Speci men Type: BLOOD SPECIMEN Ordering Facility: [facility] Address: [address] [place] [address] Performed By: #### 2 1-2 #### [facility] CLIA [id number] [address] Monocytes/100 WBC (Bld) 9.6 % Normal [facility] Comment on above: Order Comment: Speci men Type: BLOOD SPECIMEN Ordering Facility: [facility] Address: [address] [place] [address] Performed By: #### 2 1-2 #### [facility] CLIA [id number] [address] [place] Neutrophils (Bld) [#/Vol] 5.38 10*3/uL Normal 1.45-7.50 [facility] Comment on above: Order Comment: Speci men Type: BLOOD SPECIMEN Ordering Facility: [facility] Address: [address] [place] [address] Performed By: #### 2 1-2 #### [facility] CLIA [id number] [address] [place] Neutrophils/100 WBC (Bld) 65.9 % Normal [facility] Comment on above: Order Comment: Speci men Type: BLOOD SPECIMEN Ordering Facility: [facility] Address: [facility] [place] [address] Performed By: #### 2 1-2 #### [facility] CLIA [id number] [address] [place] Nucleated RBC (Bld) [#/Vol] 10*3/uL Normal <0.01 [facility] Comment on above: Order Comment: Speci men Type: BLOOD SPECIMEN Ordering Facility: [facility] Address: [address] [place] [address] Performed By: #### 2 4321-2 #### [facility] CLIA [id number] [address] OF [facility] Nucleated RBC/100 WBC (Bld) [Ratio] 0.0 /100 WBC Normal [facility] Comment on above: Order Comment: Speci men Type: BLOOD SPECIMEN Ordering Facility: [facility] Address: [address] [place] [address] Performed By: #### 2 4321-2 #### [facility] CLIA [id number] [address] [place] Platelet mean volume (Bld) [Entitic vol] 9.1 fL Normal 9.0-12.7 [facility] Comment on above: Order Comment: Speci men Type: BLOOD SPECIMEN Ordering Facility: [facility] Address: [address] [place] [address] Performed By: #### 2 4321-2 #### [facility] CLIA [id number] [address] [place] Platelets (Bld) [#/Vol] 242 10*3/uL Normal 150-400 [facility] Comment on above: Order Comment: Speci men Type: BLOOD SPECIMEN Ordering Facility: [facility] Address: [address] [place] [address] Performed By: #### 2 4321-2 #### [facility] CLIA [id number] [address] [place] RBC (Bld) [#/Vol] 4.25 10*6/uL Normal 3.90-5.20 [facility] Comment on above: Order Comment: Speci men Type: BLOOD SPECIMEN Ordering Facility: [facility] Address: [address] [place] [address] Performed By: #### 2 4321-2 #### [facility] CLIA [id number] [address] [place] [id number] [place] WBC (Bld) [#/Vol] 8.16 10*3/uL Normal 3.70-11.00 [facility] Comment on above: Order Comment: Speci men Type: BLOOD SPECIMEN Ordering Facility: [facility] Address: [place] [address] Performed By: #### 2 4321-2 #### [facility] CLIA [id number] [address] [place] [id number] [facility] [place] C[facility]Non [facility]2023 [facility]) ----- TRENTON JACKSON ([id number]) 1970 [facility] Date Time Provider [facility] During your visit today, we recorded the following information about you: Tenzin Biology Manager Ethel Shah 10/18/2023 11:46 AM Signed Returned Sara's call from [facility] regarding Trenton - last nurse we spoke to (Bryant), they were to take patient to [facility] and follow up with local ortho md. Called and spoke to Cindi - when order was given to Bryant in regards to giving an antibiotic AND taking to [facility] ED for surgical consult if no improvement - there was no follow through on that end. The snf physician did give an antibiotic 09/27/23 - 10/04/23 and nothing was done after that until Cindi saw Trenton on 10/15/23 AND sent her to [facility] ED. The ED gave her pain medication [...] May for review Thank you Ethel Dave [employer] Tenzin Biology Manager Sandra Shahlotalonso Sue 10/18/2023 3:03 PM Signed Spoke to Cindi - she is going to [facility] to arrange for transport. She did state that sometimes they can diamond picker in 15 minutes but sometimes it can take hours. Cindi does have direct phone # and knows I am in office until 530pm should she need to reach the office, after that to call the main office phone #. Also verified [facility] ED address. Thank you Ethel Dave [employer] Manager [employer] Allergies As of Date: 10/18/2023 Noted Allergy Reaction LATEX 01/18/2011 9 - Itching Comments: Red and dry cracking skin Date Reviewed: 09/05/2023 Reviewed by: Arminda Murillo RN - Fully Assessed Reason for Visit: returned snf call [Other] Patient Update [1234] Prescriptions as [...] all medications X 4 days per her esenul-52-9-2017. 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 Normal [facility] CONSULTon 10-18-2023 CONSULT HNO ID: [id number] Author: DIYA MAY MD Service: Orthopaedic Surgery [...] HPI: 53 year old female presented to [facility] due to concern for an infection [...] (more content not included)... Normal [facility] Comprehensive metabolic 2000 panelon 10-18-2023 Albumin [Mass/Vol] 3.5 g/dL Low 3.9-4.9 [facility] Comment on above: Order Comment: Speci men Type: BLOOD SPECIMEN Ordering Facility: [facility] Address: [address] [place] [address] Performed By: #### 2 432-8, #### [facility] CLIA [id number] 1 [place] [address] [place] ALP [Catalytic activity/Vol] 135 U/L High 34-123 [facility] Comment on above: Order Comment: Speci men Type: BLOOD SPECIMEN Ordering Facility: [facility] Address: [address] [place] [address] Performed By: #### 2 4323-, #### [facility] CLIA [id number] [address] ALT With P-5'-P [Catalytic activity/Vol] Normal [facility] Comment on above: Order Comment: Speci men Type: BLOOD SPECIMEN Ordering Facility: [facility] Address: [address] [place] [address] Result Comment: Unab le to assay due to interference from hemolysis. Suggest reorder as clinically indicated. Performed By: #### 2 4328, #### [facility] CLIA [id number] [address] Anion gap [Moles/Vol] 14 mmol/L Normal 9-18 [facility] Comment on above: Order Comment: Radha tony Type: BLOOD SPECIMEN Ordering Facility: [facility] Address: [address] [place] [address] Performed By: #### 2 4328, #### [facility] CLIA [id number] [address] AST With P-5'-P [Catalytic activity/Vol] Normal [facility] Comment on above: Order Comment: Speci men Type: BLOOD SPECIMEN Ordering Facility: [facility] Address: [address] [place] [address] Result Comment: Unab le to assay due to interference from hemolysis. Suggest reorder as clinically indicated. Performed By: #### 2 8, #### [facility] CLIA [id number] [address] [place] Bilirubin [Mass/Vol] 0.5 mg/dL Normal 0.2-1.3 [facility] Comment on above: Order Comment: Speci men Type: BLOOD SPECIMEN Ordering Facility: [facility] Address: [address] [place] [address] Performed By: #### 2 4323-01, #### [facility] CLIA [id number] [address] [place] Calcium [Mass/Vol] 9.0 mg/dL Normal 8.5-10.2 [facility] Comment on above: Order Comment: Speci men Type: BLOOD SPECIMEN Ordering Facility: [facility] Address: [address] [place] [address] Performed By: #### 2 4323-8, #### [facility] CLIA [id number] 1 [place] [address] [place] Chloride [Moles/Vol] 98 mmol/L Normal 97-105 [facility] Comment on above: Order Comment: Speci men Type: BLOOD SPECIMEN Ordering Facility: [facility] Address: [address] [place] [address] Performed By: #### 2 43238, #### [facility] CLIA [id number] 1 [place] [address] [place] CO2 [Moles/Vol] 24 mmol/L Normal 22-30 [facility] Comment on above: Order Comment: Speci men Type: BLOOD SPECIMEN Ordering Facility: [facility] Address: [address] [place] [address] Performed By: #### 2 4328, #### [facility] CLIA [id number] [address] [place] Creatinine [Mass/Vol] 1.61 mg/dL High 0.58-0.96 [facility] Comment on above: Order Comment: Speci men Type: BLOOD SPECIMEN Ordering Facility: [facility] Address: [address] [place] [address] Performed By: #### 2 43238, #### [facility] CLIA [id number] [address] [place] Creatinine and Glomerular filtration rate.predicted panel (S/P/Bld) 38 mL/min/1.73m??? Low >=60 [facility] Comment on above: Order Comment: Speci men Type: BLOOD SPECIMEN Ordering Facility: [facility] Address: [address] [place] [address] Result Comment: Crissy mated Glomerular Filtration Rate [...] GFR. Performed By: #### 2 432-, #### [facility] CLIA [id number] 1 [place] [address] [place] Glucose [Mass/Vol] 160 mg/dL High 74-99 [facility] Comment on above: Order Comment: Speci men Type: BLOOD SPECIMEN Ordering Facility: [facility] Address: [address] [place] [address] Result Comment: The [place] Diabetes Association (ADA) provides guidance for cutoff [...] Standards of Medical Care in Diabetes 2016, [place] Diabetes Association. Diabetes Care. 2016.39(Suppl 1). Performed By: #### 2 4323-01, #### [facility] CLIA [id number] 1 [place] [address] [place] Potassium [Moles/Vol] Normal [facility] Comment on above: Order Comment: Speci men Type: BLOOD SPECIMEN Ordering Facility: [facility] Address: [address] [place], [place] [id number] Result Comment: Unab le to assay due to interference from hemolysis. Suggest reorder as clinically indicated. Performed By: #### 2 43208-09, #### [facility] CLIA [id number] 1 [place] [address] [place] Protein [Mass/Vol] 6.9 g/dL Normal 6.3-8.0 [facility] Comment on above: Order Comment: Speci men Type: BLOOD SPECIMEN Ordering Facility: [facility] Address: [address] [place] [address] Performed By: #### 2 4323-8, #### [facility] CLIA [id number] [address] OF [facility] Sodium [Moles/Vol] 136 mmol/L Normal 136-144 [facility] Comment on above: Order Comment: Speci men Type: BLOOD SPECIMEN Ordering Facility: [facility] Address: [address] [place] [address] Performed By: #### 2 4323-8, #### [facility] CLIA [id number] [address] OF [facility] Urea nitrogen [Mass/Vol] 51 mg/dL High 7-21 [facility] Comment on above: Order Comment: Speci men Type: BLOOD SPECIMEN Ordering Facility: [facility] Address: [address] [place] [address] Performed By: #### 2 4328, #### [facility] CLIA [id number] [address] ED NOTEon 10-18-2023 ED NOTE HNO ID: [id number] Author: JIMY CHING RN Service: Emergency Medicine Author Type: Registered Nurse Type: ED Notes Filed: 10/18/2023 19:40 Note Text: Xray at bedside Normal [facility] ED NOTE HNO ID: [id number] Author: ERVIN RENO RN Service: Emergency Medicine Author Type: Registered Nurse Type: ED Notes Filed: 10/18/2023 18:56 Note Text: XR notified pt is ready for ordered imaging Normal [facility] ED NOTE HNO ID: [id number] Author: ERVIN RENO, RN Service: Emergency Medicine Author Type: Registered Nurse Type: ED Notes Filed: 10/18/2023 18:32 Note Text: Patient's identity verified by patient stating name, Patient's identity verified by patient stating date, Patient's identity verified by hospital ID bracelet. Patient placed on fruit sprayer, patient placed on non-invasive blood pressure monitor, patient placed on continuous pulse oximetry. Alarms set and on, patient tolerating monitoring. Normal [facility] ED NOTE HNO ID: [id number] Author: GARRISON VAUGHAN RN Service: ? Author Type: Registered Nurse Type: ED Notes Filed: 10/18/2023 18:24 Note Text: Bed: 33- Expected date: Expected time: Means of arrival: Comments: BH ONLY Normal [facility] ED PROV NOTEon 10-18-2023 ED PROV NOTE HNO ID: [id number] Author: MARIA E PORTILLO MD Service: Emergency [...] had any recent fevers chills in the snf denies any other concerns. The patient denies [...] disposition details MARIA E PORTILLO 10/19/23 0123 [facility] ED PROV NOTE HNO ID: [id number] Author: MARIA E PORTILLO MD Service: Emergency [...] a fall on and was transferred to [facility] for surgery from [place] [facility]. Pt has been having pain since the [...] (more content not included)... Normal [facility] HISTORY PHYSICALon HISTORY PHYSICAL HNO ID: [id number] Author: JUANCARLOS GRAHAM APRN.MAIL TRUCK DRIVER Service: Hospital Medicine Author Type: Nurse Practitioner Type: H&P Filed: 10/19/2023 01:52 Note Text: [facility]BSERVATION UNIT HISTORY AND PHYSICAL EXAM SERVICE DATE: 10/19/2023 SERVICE TIME: 0152 Primary Care Physician: Nathaly Leonard [facility] [place] NIGHT AND WEEKEND COVERAGE: Unit ext: [phone] Pager [phone] Subjective CHIEF COMPLAINT: Right hip pain HPI: [...] (more content not included)... Normal [facility] Magnesium SerPl-mCncon 10-17 Magnesium [Mass/Vol] 2.2 mg/dL Normal 1.7-2.3 [facility] Comment on above: Order Comment: Speci men Type: BLOOD SPECIMEN Ordering Facility: [facility] Address: [address] [place] [address] Performed By: #### 2 4323-8, 33263-0 #### [facility] CLIA [id number] [address] OF [facility] POTASSIUMon 10-18-2023 Potassium [Moles/Vol] 4.0 mmol/L Normal 3.7-5.1 [facility] Comment on above: Order Comment: Speci men Type: BLOOD SPECIMEN Ordering Facility: [facility] Address: [address] [place] [address] Performed By: #### 5 8410-2 #### [facility] CLIA [id number] [address] [place] XR HIP 3V [...] Hardware is intact. Vascular calcifications are present. Prosthetics Lab Technician: GEORGE Transcribe Date/Time: Oct 18 2023 8:09P Dictated by : CLOVER LINTON MD This examination was interpreted and the report reviewed and electronically signed by: CLOVER LINTON MD on Oct 18 2023 8:13PM EST [id number] Normal [facility] Basophil percentageOrdered B y: Kaylie Trujillo on 10-12-2023 Chloride [Moles/Vol] 104 mmol/L 98-107 [facility] Glucose [Mass/Vol] 112 mg/dL 74-106 [facility] Comment on above: Fasting Glucose resu lt from 100 to 125 mg/dL suggests IMPAIRED HOMEOSTASIS per A.D.A. criteria. Potassium [Moles/Vol] 4.5 mmol/L 3.5-5.1 [facility] Sodium [Moles/Vol] 138 mmol/L 136-145 [facility] - Chemistry and C hemistry - challengeOrdered By: Kaylie Trujillo on 10-12-2023 CO2 [Moles/Vol] 31.0 mmol/L 21.0-32.0 [facility] Urea nitrogen/Creatinine [Mass ratio] 34.1 mg/mg 10-20 [facility] No Panel InformationOrdered By: Kaylie Trujillo on 10-12-2023 Estimated GFR (MDRD) Amer 112 mL/min >60 [facility] Comment on above: GFR Calc Estimated GFR (MDRD) Non-Af Amer 93 mL/min >60 [facility] Comment on above: Non- GFR Calc Serum or plasma calcium xiomara urement (mass/volume)Ordered By: Kaylie Trujillo on 10-12-2023 Calcium [Mass/Vol] 8.7 mg/dL 8.5-10.1 [facility] Serum or plasma creatinine m easurement (mass/volume)Ordered By: Kaylie Trujillo on 10-12-2023 Creatinine [Mass/Vol] 0.70 mg/dL 0.55-1.02 [facility] Comment on above: The validity of the calculated GFR & GFRAA in patients over 70 years has not been determined. Clinical correlation is essential. Serum or plasma urea nitroge n measurement (mass/volume)Ordered By: Kaylie Trujillo on 05-10-2024 Urea nitrogen [Mass/Vol] 24 mg/dL 12-19 [facility] Thin prep Papanicolaou smear with manual screeningOrdered By: Kaylie Trujillo on 10-12-2023 Thin prep Papanicolaou smear with manual screening 3 10-16 [facility] CNPNon 10-09-2023 CNPN Telephone (AGPOB1) ----- TRENTON JACKSON ([id number]) 1970 [facility] Date Time Provider Department 10/09/23 DIYA MAY [...] calling if other than patient: Bryant @ [facility] Return call to if other than patient: same Best contact number: [phone] Thank you, Pauly Heredia October 09, 2023 [...] all medications X 4 days per her lpiznc-19-8-2017. Problem List As Of Date 10/09/2023 Noted [...] (more content not included)... Normal [facility] Absolute lymphocyte countOrd ered By: Kaylie Trujillo on 10-08-2023 Lymphocytes Auto (Unsp spec) [#/Vol] 1.68 10*3/uL 0.83-4.51 [facility] Automated lymphocyte count a s percentage of total leukocytesOrdered By: Kaylie Trujillo on 10-08-2023 Lymphocytes/100 WBC Auto (Unsp spec) 19.2 % 19-41 [facility] Basophil percentageOrdered B y: Kaylie Trujillo on 10-08-2023 Basophils/100 WBC (Bld) 0.7 % 0-1 [facility] Chloride [Moles/Vol] 108 mmol/L 98-107 [facility] Eosinophils/100 WBC (Bld) 1.4 % 0-5 [facility] Glucose [Mass/Vol] 67 mg/dL 74-106 [facility] Hemoglobin (Bld) [Mass/Vol] 12.1 g/dL 12.0-15.0 [facility] Monocytes/100 WBC (Bld) 7.8 % 0-10 [facility] Neutrophils (Bld) [#/Vol] 6.2 10*3/uL 2.0-7.7 [facility] Neutrophils/100 WBC (Bld) 70.6 % 47-70 [facility] Potassium [Moles/Vol] 5.6 mmol/L 3.5-5.1 [facility] Sodium [Moles/Vol] 139 mmol/L 136-145 [facility] WBC (Bld) [#/Vol] 8.7 10*3/uL 4.4-11.0 [facility] Determination of erythrocyte mean corpuscular volume (MCV)Ordered By: Kaylie Trujillo on 10-08-2023 MCV (RBC) [Entitic vol] 86.7 fL 81-99 [facility] Erythrocyte distribution wid th ratioOrdered By: Kaylie Trujillo on 10-08-2023 Erythrocyte distribution width (RBC) [Ratio] 16.6 % 11.6-14.6 [facility] Erythrocyte distribution wid th standard deviationOrdered By: Kaylie Trujillo on 10-08-2023 Erythrocyte distribution width (RBC) [Entitic vol] 52.3 fL 35.1-43.9 [facility] Hematocrit Auto (Bld) [Volum e fraction]Ordered By: Kaylie Trujillo on 10-08-2023 Hematocrit (Bld) [Volume fraction] 39.6 % 37-47 [facility] Immature granulocytes/100 WB C Auto (Bld)Ordered By: Kaylie Trujillo on 10-08-2023 Immature granulocytes/100 WBC (Bld) 0.300 % 0.0-0.9 [facility] Comment on above: IG% - Immature Granu locytes (promyelocytes, myelocytes and metamyelocytes) > 1% indicates that a LEFT SHIFT is Present. Laboratory - Chemistry and C hemistry - challengeOrdered By: Kaylie Trujillo on 10-08-2023 CO2 [Moles/Vol] 27.0 mmol/L 21.0-32.0 [facility] Magnesium [Mass/Vol] 2.5 mg/dL 1.6-2.6 [facility] Urea nitrogen/Creatinine [Mass ratio] 27.6 mg/mg 10-20 [facility] Laboratory - Hematology and Cell countsOrdered By: Kaylie Trujillo on 10-08-2023 MCH (RBC) [Entitic mass] 26.5 pg 27.0-32.0 [facility] MCHC (RBC) [Mass/Vol] 30.6 g/dL 32-36 [facility] Nucleated RBC/100 WBC (Bld) [Ratio] 0 % 0-5 [facility] Platelet mean volume (Bld) [Entitic vol] 9.3 fL 6.2-12.0 [facility] Platelets (Bld) [#/Vol] 243 10*3/uL 150-450 [facility] No Panel InformationOrdered By: Kaylie Trujillo on 10-08-2023 Estimated GFR (MDRD) Amer 102 mL/min >60 [facility] Comment on above: GFR Calc Estimated GFR (MDRD) Non-Af Amer 85 mL/min >60 [facility] Comment on above: Non- GFR Calc RBC Auto (Bld) [#/Vol]Ordere d By: Kaylie Trujillo on 10-08-2023 RBC (Bld) [#/Vol] 4.57 10*6/uL 4.2-5.4 [facility] Serum or plasma calcium xiomara urement (mass/volume)Ordered By: Kaylie Trujillo on 10-08-2023 Calcium [Mass/Vol] 9.3 mg/dL 8.5-10.1 [facility] Serum or plasma creatinine m easurement (mass/volume)Ordered By: Kaylie Trujillo on 10-08-2023 Creatinine [Mass/Vol] 0.76 mg/dL 0.55-1.02 [facility] Comment on above: The validity of the calculated GFR & GFRAA in patients over 70 years has not been determined. Clinical correlation is essential. Serum or plasma urea nitroge n measurement (mass/volume)Ordered By: Kaylie Trujillo on 10-08-2023 Urea nitrogen [Mass/Vol] 21 mg/dL 7-18 [facility] Thin prep Papanicolaou smear with manual screeningOrdered By: Kaylieoskar Trujillo on 10-08-2023 Thin prep Papanicolaou smear with manual screening 4 5-15 [facility] CNPNon 10-04-2023 CNPN Telephone (AGPOB1) ----- TRENTON JACKSON ([id number]) 1970 [facility] Date Time Provider Department 10/04/23 DIYA MAY [facility] During your visit today, we recorded the following information about you: Tenzin Biology Manager Alyssa Ethel J 10/04/2023 2:40 PM Signed [...] which facility was the patient seen at: [facility] Was an appointment scheduled (Y/N): no-unable to schedule per tool Person calling if other than patient: Bryant([facility]) Return call to if other than patient: Bryant Best contact number: [phone] Thank you, Melany Simon October 03, 2023 1:23 PM [facility] Ethel Shah 10/08/2023 3:47 PM Signed Left message for Bryant to get an update on [place]. Last message to her was instructions from Dr. May regarding giving her antibiotics, taking her to [place] emergency department if no improvements for a surgical consult. Thank you Ethel Dave [facility] Allergies As of Date: 10/04/2023 Noted [...] all medications X 4 days per her [id number]. Problem List As Of Date 10/04/2023 Noted Resolved Abdominal pain, other specified site [R10.9] 10/23/2012 Essential hypertension [I10] 02/20/2017 Pericardial cyst [Q24.8] 02/20/2017 Pericardial effusion [I31.39] 02/20/2017 Depression [F32.A] 02/20/2017 Anxiety [F41.9] 02/20/2017 Right-sided low back pain with right-sided scia*02/20/2017 Type 2 diabetes mellitus with complication, w (more content not included)... Normal [facility] CNPNon 10-02-2023 CNPN Telephone (AGPOB1) ----- TRENTON JACKSON ([id number]) 1970 [facility] Date [facility] During your visit today, we recorded the following information about you: Tenzin [facility] Ethel Shah 10/02/2023 12:11 PM Signed ----- [...] Date of : 1970 Previous Provider Seen: [facility] Body Part(s) Identified: r hip Diagnosis/Reason For Visit: post op Reason for the call/escalation: pt would like to schedule post op care center calling on behave of pt If reason for call/escalation is discharge from ED/ER or Hospital, which facility was the patient seen at: na Was an appointment scheduled (Y/N): n Person calling if other than patient: [facility] Return call to if other than patient: bryant Best contact number: [phone] Thank you, Agata Das October 02, 2023 11:16 AM [facility] Ethel Shah 10/03/2023 11:29 AM Signed Left message for Bryant - Dr. May does not want to schedule a follow up appointment at this time. He would like an update of her wound since she has started the antibiotic. If it has not changed, gotten better or is worse - he would like her taken to the [place] Emergency Department for a surgical consult. Left my direct phone number so Bryant can call to let me know status. Thank you Ethel Chongnh [facility] Allergies As of Date: 10/02/2023 Noted Allergy Reaction LATEX 01/18/2011 9 - Itching Comments: Red and dry cracking skin Date Reviewed: 09/05/2023 Reviewed by: Arminda Murillo RN - Fully Assessed Reason for Visit: Contact Center Call [2254] Patient Update [0538] PHYSICIAN INSTRUCTIONS [Other] Prescriptions as of 10/03/2023 [...] all medications X 4 days per her [id number]. Problem List As Of Date 10/02/2023 Noted Resolved Abdominal pain, other specified site [R10.9] 10/23/2012 Essential hypertension [I10] 02/20/2017 Pericardial cyst [Q24.8] 02/20/2017 Pericardial effusion [I31.39] 02/20 (more content not included)... Normal [facility] Absolute lymphocyte countOrd ered By: Kaylie Trujillo on 10-01-2023 Lymphocytes Auto (Unsp spec) [#/Vol] 1.59 10*3/uL 0.83-4.51 [facility] Automated lymphocyte count a s percentage of total leukocytesOrdered By: Kaylie Trujillo on 10-01-2023 Lymphocytes/100 WBC Auto (Unsp spec) 24.4 % 19-41 [facility] Basophil percentageOrdered B y: Kaylie Trujillo on 10-01-2023 Basophils/100 WBC (Bld) 1.1 % 0-1 [facility] Chloride [Moles/Vol] 108 mmol/L 98-107 [facility] Eosinophils/100 WBC (Bld) 2.6 % 0-5 [facility] Glucose [Mass/Vol] 123 mg/dL 74-106 [facility] Comment on above: Fasting Glucose resu lt from 100 to 125 mg/dL suggests IMPAIRED HOMEOSTASIS per A.D.A. criteria. Hemoglobin (Bld) [Mass/Vol] 11.7 g/dL 12.0-15.0 [facility] Monocytes/100 WBC (Bld) 8.8 % 0-10 [facility] Neutrophils (Bld) [#/Vol] 4.1 10*3/uL 2.0-7.7 [facility] Neutrophils/100 WBC (Bld) 62.6 % 47-70 [facility] Potassium [Moles/Vol] 5.4 mmol/L 3.5-5.1 [facility] Sodium [Moles/Vol] 138 mmol/L 136-145 [facility] WBC (Bld) [#/Vol] 6.5 10*3/uL 4.4-11.0 [facility] CNPNon 10-01-2023 [place] Telephone (AGPOB1) ----- TRENTON JACKSON ([id number]) 1970 F [facility] Date Time Provider Department 10/01/23 VRABEC, [...] all medications X 4 days per her [id number]-17-9-2017. Problem List As Of Date 10/01/2023 Noted [...] (more content not included)... Normal [facility] Determination of erythrocyte mean corpuscular volume (MCV)Ordered By: Kaylie Trujillo on 10-01-2023 MCV (RBC) [Entitic vol] 86.3 fL 81-99 [facility] Erythrocyte distribution wid th ratioOrdered By: Kaylie Trujillo on 10-01-2023 Erythrocyte distribution width (RBC) [Ratio] 15.9 % 11.6-14.6 [facility] Erythrocyte distribution wid th standard deviationOrdered By: Kaylie Trujillo on 10-01-2023 Erythrocyte distribution width (RBC) [Entitic vol] 50.4 fL 35.1-43.9 [facility] Hematocrit Auto (Bld) [Volum e fraction]Ordered By: Kaylie Trujillo on 10-01-2023 Hematocrit (Bld) [Volume fraction] 37.8 % 37-47 [facility] Immature granulocytes/100 WB C Auto (Bld)Ordered By: Kaylie Trujillo on 10-01-2023 Immature granulocytes/100 WBC (Bld) 0.500 % 0.0-0.9 [facility] Comment on above: IG% - Immature Granu locytes (promyelocytes, myelocytes and metamyelocytes) > 1% indicates that a LEFT SHIFT is Present. Laboratory - Chemistry and C hemistry - challengeOrdered By: Kaylie Trujillo on 10-01-2023 CO2 [Moles/Vol] 27.0 mmol/L 21.0-32.0 [facility] Magnesium [Mass/Vol] 2.6 mg/dL 1.6-2.6 [facility] Urea nitrogen/Creatinine [Mass ratio] 24.1 mg/mg 10-20 [facility] Laboratory - Hematology and Cell countsOrdered By: Kaylie Trujillo on 10-01-2023 MCH (RBC) [Entitic mass] 26.7 pg 27.0-32.0 [facility] MCHC (RBC) [Mass/Vol] 31.0 g/dL 32-36 [facility] Nucleated RBC/100 WBC (Bld) [Ratio] 0 % 0-5 [facility] Platelet mean volume (Bld) [Entitic vol] 9.1 fL 6.2-12.0 [facility] Platelets (Bld) [#/Vol] 218 10*3/uL 150-450 [facility] No Panel InformationOrdered By: Kaylie Trujillo on 10-01-2023 C-Reactive Protein Extended Range 10.40 mg/L 0.0-3.0 [facility] Comment on above: C-Reactive Protein ( CRP) provides useful information for thediagnosis, therapy and monitoring of inflammatory processesand associated diseases. For the evaluation of Relative Riskfor Cardiovascular Disease, a High Sensitivity CRP (HSCRP)should be ordered. Estimated GFR (MDRD) Amer 83 mL/min >60 [facility] Comment on above: GFR Calc Estimated GFR (MDRD) Non-Af Amer 69 mL/min >60 [facility] Comment on above: Non- GFR Calc RBC Auto (Bld) [#/Vol]Ordere d By: Kaylie Trujillo on 10-01-2023 RBC (Bld) [#/Vol] 4.38 10*6/uL 4.2-5.4 [facility] Serum or plasma calcium xiomara urement (mass/volume)Ordered By: Kaylie Trujillo on 10-01-2023 Calcium [Mass/Vol] 9.0 mg/dL 8.5-10.1 [facility] Serum or plasma creatinine m easurement (mass/volume)Ordered By: Kaylie Trujillo on 10-01-2023 Creatinine [Mass/Vol] 0.91 mg/dL 0.55-1.02 [facility] Comment on above: The validity of the calculated GFR & GFRAA in patients over 70 years has not been determined. Clinical correlation is essential. Serum or plasma trough vanco mycin levelOrdered By: Kaylie Trujillo on 10-01-2023 Vancomycin trough [Mass/Vol] 24.8 ug/mL 5.0-15.0 [facility] Comment on above: VANCOMYCIN STANDARED DRUG THERAPY TROUGH LEVEL: 5.0 - 15.0 mg/L VANCOMYCIN HIGH INTENSITY THERAPY TROUGH LEVEL: 15.0 - 20.0 mg/L High Intensity therapy recommended for serious lifethreatening infections include:- Fdllazebpi-Ndvellbraheo-Mqsmyvjpj (Ventilator/Healtcare Associated)-Sepsis PLEASE CONTACT PHARMACY SERVICES (#[id number]) FOR INTERPRETATIONOF RESULTS. Serum or plasma urea nitroge n measurement (mass/volume)Ordered By: Kaylie Trujillo on 10-01-2023 Urea nitrogen [Mass/Vol] 22 mg/dL 7-18 [facility] Thin prep Papanicolaou smear with manual screeningOrdered By: Kaylie Trujillo on 10-01-2023 Thin prep Papanicolaou smear with manual screening 3 5-15 [facility] Serum or plasma trough vanco mycin levelOrdered By: Kaylie Trujillo on 09-29-2023 Vancomycin trough [Mass/Vol] 17.3 ug/mL 5.0-15.0 [facility] Comment on above: VANCOMYCIN STANDARED DRUG THERAPY TROUGH LEVEL: 5.0 - 15.0 mg/L VANCOMYCIN HIGH INTENSITY THERAPY TROUGH LEVEL: 15.0 - 20.0 mg/L High Intensity therapy recommended for serious lifethreatening infections include:- Znudckcrxp-Axplzegtsmfo-Shhatlkxw (Ventilator/Healtcare Associated)-Sepsis PLEASE CONTACT PHARMACY SERVICES (#[id number]) FOR INTERPRETATIONOF RESULTS. Adriana 09-27-2023 CNPN Telephone (AGPOB1) ----- TRENTON JACKSON ([id number]) 1970 F [facility] Date Time Provider Department 09/27/23 [facility] During your visit today, we recorded the following information about you: Ethel Alonso 09/27/2023 3:54 PM Signed Received message from Stephania at [facility] stating [place] is forming an abscess [...] a local orthopedic since she is in [place]. Dr. Posadas - [phone] He would like if the facility could [...] Fully Assessed Reason for Visit: Patient Question [8937] Abscess [1744] Prescriptions as of 09/27/2023 - [...] all medications X 4 days per her [id number]-42-6-2017. Problem List As Of Date 09/27/2023 Noted [...] (more content not included)... Normal [facility] Absolute lymphocyte countOrd ered By: Kaylie Trujillo on 09-24-2023 Lymphocytes Auto (Unsp spec) [#/Vol] 1.63 10*3/uL 0.83-4.51 [facility] Automated lymphocyte count a s percentage of total leukocytesOrdered By: Kaylie Trujillo on 09-24-2023 Lymphocytes/100 WBC Auto (Unsp spec) 21.3 % 19-41 [facility] Basophil percentageOrdered B y: Kaylie Trujillo on 09-24-2023 Basophils/100 WBC (Bld) 1.0 % 0-1 [facility] Chloride [Moles/Vol] 99 mmol/L 98-107 [facility] Eosinophils/100 WBC (Bld) 2.1 % 0-5 [facility] Glucose [Mass/Vol] 166 mg/dL 74-106 [facility] Comment on above: Fasting Glucose resu lt greater than or equal to 126 mg/dL suggests DIABETES MELLITUS per A.D.A. criteria. Hemoglobin (Bld) [Mass/Vol] 11.8 g/dL 12.0-15.0 [facility] Monocytes/100 WBC (Bld) 9.3 % 0-10 [facility] Neutrophils (Bld) [#/Vol] 5.1 10*3/uL 2.0-7.7 [facility] Neutrophils/100 WBC (Bld) 65.9 % 47-70 [facility] Potassium [Moles/Vol] 4.8 mmol/L 3.5-5.1 [facility] Sodium [Moles/Vol] 134 mmol/L 136-145 [facility] WBC (Bld) [#/Vol] 7.7 10*3/uL 4.4-11.0 [facility] Determination of erythrocyte mean corpuscular volume (MCV)Ordered By: Kaylie Trujillo on 09-24-2023 MCV (RBC) [Entitic vol] 84.3 fL 81-99 [facility] Erythrocyte distribution wid th ratioOrdered By: Kaylieoskar Trujillo on 09-24-2023 Erythrocyte distribution width (RBC) [Ratio] 15.5 % 11.6-14.6 [facility] Erythrocyte distribution wid th standard deviationOrdered By: Kaylie Trujillo on 09-24-2023 Erythrocyte distribution width (RBC) [Entitic vol] 46.9 fL 35.1-43.9 [facility] Hematocrit Auto (Bld) [Volum e fraction]Ordered By: Kaylie Trujillo on 09-24-2023 Hematocrit (Bld) [Volume fraction] 37.7 % 37-47 [facility] Immature granulocytes/100 WB C Auto (Bld)Ordered By: Kaylie Trujillo on 09-24-2023 Immature granulocytes/100 WBC (Bld) 0.400 % 0.0-0.9 [facility] Comment on above: IG% - Immature Granu locytes (promyelocytes, myelocytes and metamyelocytes) > 1% indicates that a LEFT SHIFT is Present. Laboratory - Chemistry and C hemistry - challengeOrdered By: Kaylie Trujillo on 09-24-2023 CO2 [Moles/Vol] 29.0 mmol/L 21.0-32.0 [facility] Magnesium [Mass/Vol] 2.8 mg/dL 1.6-2.6 [facility] Urea nitrogen/Creatinine [Mass ratio] 38.8 mg/mg 10-20 [facility] Laboratory - Hematology and Cell countsOrdered By: Kaylie Trujillo on 09-24-2023 MCH (RBC) [Entitic mass] 26.4 pg 27.0-32.0 [facility] MCHC (RBC) [Mass/Vol] 31.3 g/dL 32-36 [facility] Nucleated RBC/100 WBC (Bld) [Ratio] 0 % 0-5 [facility] Platelet mean volume (Bld) [Entitic vol] 9.4 fL 6.2-12.0 [facility] Platelets (Bld) [#/Vol] 316 10*3/uL 150-450 [facility] No Panel InformationOrdered By: Kaylie Trujillo on 09-24-2023 Estimated GFR (MDRD) Amer 82 mL/min >60 [facility] Comment on above: GFR Calc Estimated GFR (MDRD) Non-Af Amer 67 mL/min >60 [facility] Comment on above: Non- GFR Calc RBC Auto (Bld) [#/Vol]Ordere d By: Kaylie Trujillo on 09-24-2023 RBC (Bld) [#/Vol] 4.47 10*6/uL 4.2-5.4 [facility] Serum or plasma calcium xiomara urement (mass/volume)Ordered By: Kaylie Trujillo on 09-24-2023 Calcium [Mass/Vol] 8.8 mg/dL 8.5-10.1 [facility] Serum or plasma creatinine m easurement (mass/volume)Ordered By: Kaylie Trujillo on 09-24-2023 Creatinine [Mass/Vol] 0.93 mg/dL 0.55-1.02 [facility] Comment on above: The validity of the calculated GFR & GFRAA in patients over 70 years has not been determined. Clinical correlation is essential. Serum or plasma thyroid stim ulating hormone (TSH) measurement (units/volume)Ordered By: Kaylieoskar Trujillo on 09-24-2023 TSH Qn 6.61 uIU/mL 0.358-3.74 [facility] Serum or plasma urea nitroge n measurement (mass/volume)Ordered By: [facility] Ronnie on 09-24-2023 Urea nitrogen [Mass/Vol] 36 mg/dL 7-18 [facility] Thin prep Papanicolaou smear with manual screeningOrdered By: Kaylieoskar Trujillo on 09-24-2023 Thin prep Papanicolaou smear with manual screening 6 5-15 [facility] Absolute lymphocyte countOrd ered By: Kaylieoskar Trujillo on 09-17-2023 Lymphocytes Auto (Unsp spec) [#/Vol] 1.47 10*3/uL 0.83-4.51 [facility] Automated lymphocyte count a s percentage of total leukocytesOrdered By: Kaylie Trujillo on 09-17-2023 Lymphocytes/100 WBC Auto (Unsp spec) 13.5 % 19-41 [facility] Basophil percentageOrdered B y: Kaylie Trujillo on 09-17-2023 Basophils/100 WBC (Bld) 0.9 % 0-1 [facility] Chloride [Moles/Vol] 96 mmol/L 98-107 [facility] Eosinophils/100 WBC (Bld) 1.3 % 0-5 [facility] Glucose [Mass/Vol] 134 mg/dL 74-106 [facility] Comment on above: Fasting Glucose resu lt greater than or equal to 126 mg/dL suggests DIABETES MELLITUS per A.D.A. criteria. Hemoglobin (Bld) [Mass/Vol] 12.8 g/dL 12.0-15.0 [facility] Monocytes/100 WBC (Bld) 5.7 % 0-10 [facility] Neutrophils (Bld) [#/Vol] 8.5 10*3/uL 2.0-7.7 [facility] Neutrophils/100 WBC (Bld) 78.0 % 47-70 [facility] Potassium [Moles/Vol] 4.5 mmol/L 3.5-5.1 [facility] Sodium [Moles/Vol] 133 mmol/L 136-145 [facility] WBC (Bld) [#/Vol] 10.9 10*3/uL 4.4-11.0 [facility] Determination of erythrocyte mean corpuscular volume (MCV)Ordered By: Kaylie Trujillo on 09-17-2023 MCV (RBC) [Entitic vol] 86.0 fL 81-99 [facility] Erythrocyte distribution wid th ratioOrdered By: Kaylie Trujillo on 09-17-2023 Erythrocyte distribution width (RBC) [Ratio] 15.2 % 11.6-14.6 [facility] Erythrocyte distribution wid th standard deviationOrdered By: Kaylie Trujillo on 09-17-2023 Erythrocyte distribution width (RBC) [Entitic vol] 46.5 fL 35.1-43.9 [facility] Hematocrit Auto (Bld) [Volum e fraction]Ordered By: Kaylie Trujillo on 09-17-2023 Hematocrit (Bld) [Volume fraction] 42.9 % 37-47 [facility] Immature granulocytes/100 WB C Auto (Bld)Ordered By: Kaylie Trujillo on 09-17-2023 Immature granulocytes/100 WBC (Bld) 0.600 % 0.0-0.9 [facility] Comment on above: IG% - Immature Granu locytes (promyelocytes, myelocytes and metamyelocytes) > 1% indicates that a LEFT SHIFT is Present. Laboratory - Chemistry and C hemistry - challengeOrdered By: Kaylie Trujillo on 09-17-2023 CO2 [Moles/Vol] 35.0 mmol/L 21.0-32.0 [facility] Magnesium [Mass/Vol] 2.9 mg/dL 1.6-2.6 [facility] Urea nitrogen/Creatinine [Mass ratio] 26.9 mg/mg 10-20 [facility] Laboratory - Hematology and Cell countsOrdered By: Kaylie Trujillo on 09-17-2023 MCH (RBC) [Entitic mass] 25.7 pg 27.0-32.0 [facility] MCHC (RBC) [Mass/Vol] 29.8 g/dL 32-36 [facility] Nucleated RBC/100 WBC (Bld) [Ratio] 0 % 0-5 [facility] Platelet mean volume (Bld) [Entitic vol] 9.6 fL 6.2-12.0 [facility] Platelets (Bld) [#/Vol] 399 10*3/uL 150-450 [facility] No Panel InformationOrdered By: Kaylie Trujillo on 09-17-2023 Estimated GFR (MDRD) Amer 61 mL/min >60 [facility] Comment on above: GFR Calc Estimated GFR (MDRD) Non-Af Amer 51 mL/min >60 [facility] Comment on above: Non- GFR Calc RBC Auto (Bld) [#/Vol]Ordere d By: Kaylie Trujillo on 09-17-2023 RBC (Bld) [#/Vol] 4.99 10*6/uL 4.2-5.4 [facility] Serum or plasma calcium xiomara urement (mass/volume)Ordered By: Kaylie Trujillo on 09-17-2023 Calcium [Mass/Vol] 9.2 mg/dL 8.5-10.1 [facility] Serum or plasma creatinine m easurement (mass/volume)Ordered By: Kaylie Trujillo on 09-17-2023 Creatinine [Mass/Vol] 1.19 mg/dL 0.55-1.02 [facility] Comment on above: The validity of the calculated GFR & GFRAA in patients over 70 years has not been determined. Clinical correlation is essential. Serum or plasma urea nitroge n measurement (mass/volume)Ordered By: Kaylie Trujillo on 09-17-2023 Urea nitrogen [Mass/Vol] 32 mg/dL 7-18 [facility] Thin prep Papanicolaou smear with manual screeningOrdered By: Kaylie Trujillo on 09-17-2023 Thin prep Papanicolaou smear with manual screening 2 10-16 [facility] 09-12-2023 CNPN Telephone (AGPOB1) ----- TRENTON JACKSON ([id number]) 1970 [facility] Date Time Provider Department 09/12/23 DIYA MAY CARLOS During your visit today, we recorded the following information about you: Ethel Alonso 09/12/2023 9:24 AM Signed ----- Message from Evelyne Madsen sent at 09/11/2023 2:07 PM EDT ----- Regarding: Jnhoh-Wseeks-dh follow up post op- hip fracture Subject [...] which facility was the patient seen at: [facility] Was an appointment scheduled (Y/N): N/A Person calling if other than patient: REHAB [facility] Return call to if other than patient: REHAB Best contact number: [phone] Thank you, Evelyne Madsen September 11, 2023 2:07 PM Ethel Alonso 09/14/2023 2:38 PM Signed Left a message for Nurse Mgr Bryant Ruiz at the rehab facility ([phone]) that we do not need to schedule an appointment at this time but we would like to have a disc with an x-ray of [place]'s pelvis for review 09/17/23. Thank you Ethel Dave [facility] Allergies As of Date: 09/12/2023 Noted [...] all medications X 4 days per her rmbias-54-8-2017. Problem List As Of Date 09/12/2023 Noted Resolved Abdominal pain, other specified site [R10.9] 10/23/2012 Essential hypertension [I10] 02/20/2017 Pericardial cyst [Q24.8] 02/20/2017 Pericardial effusion [I31.39] 02/20/2017 Depression [F32.A] 02/20/2017 Anxiety [F41.9] 02/20/2017 Right-sided low back pain with right-sided scia*02/20/2017 Type 2 diabetes mellitus with complication, wit*03/07/2017 Chest pain [R07.9] 11/30/2017 Dysl (more content not included)... Normal [facility] Absolute lymphocyte countOrd ered By: Kaylie Trujillo on 09-10-2023 Lymphocytes Auto (Unsp spec) [#/Vol] 1.61 10*3/uL 0.83-4.51 [facility] Automated lymphocyte count a s percentage of total leukocytesOrdered By: Kaylie Trujillo on 09-10-2023 Lymphocytes/100 WBC Auto (Unsp spec) 25.0 % 19-41 [facility] Basophil percentageOrdered B y: Kaylie Trujillo on 09-10-2023 Basophils/100 WBC (Bld) 0.8 % 0-1 [facility] Chloride [Moles/Vol] 97 mmol/L 98-107 [facility] Cholesterol [Mass/Vol] 140 mg/dL <200 [facility] Comment on above: <200 mg/dL Desirable 200-240 mg/dL Borderline >240 mg/dL High Risk Eosinophils/100 WBC (Bld) 0.8 % 0-5 [facility] Glucose [Mass/Vol] 150 mg/dL 74-106 [facility] Comment on above: Fasting Glucose resu lt greater than or equal to 126 mg/dL suggests DIABETES MELLITUS per A.D.A. criteria. Hemoglobin (Bld) [Mass/Vol] 11.6 g/dL 12.0-15.0 [facility] Monocytes/100 WBC (Bld) 10.6 % 0-10 [facility] Neutrophils (Bld) [#/Vol] 4.0 10*3/uL 2.0-7.7 [facility] Neutrophils/100 WBC (Bld) 62.3 % 47-70 [facility] Potassium [Moles/Vol] 3.7 mmol/L 3.5-5.1 [facility] Sodium [Moles/Vol] 137 mmol/L 136-145 [facility] Triglyceride [Mass/Vol] 227 mg/dL <199 [facility] Comment on above: The drugs N-Acetylcy steine and Metamizole may falsely depress this assay.Serum Triglycerides Reference Interval Normal <150 mg/dL Borderline high 150 - 199 mg/dL High 200 - 499 mg/dL Very High > or = 500 mg/dL WBC (Bld) [#/Vol] 6.4 10*3/uL 4.4-11.0 [facility] Determination of erythrocyte mean corpuscular volume (MCV)Ordered By: Kaylie Trujillo on 09-10-2023 MCV (RBC) [Entitic vol] 82.4 fL 81-99 [facility] Erythrocyte distribution wid th ratioOrdered By: Kaylie Trujillo on 09-10-2023 Erythrocyte distribution width (RBC) [Ratio] 14.3 % 11.6-14.6 [facility] Erythrocyte distribution wid th standard deviationOrdered By: Kaylie Trujlilo on 09-10-2023 Erythrocyte distribution width (RBC) [Entitic vol] 42.5 fL 35.1-43.9 [facility] Hematocrit Auto (Bld) [Volum e fraction]Ordered By: Kaylie Trujillo on 09-10-2023 Hematocrit (Bld) [Volume fraction] 36.6 % 37-47 [facility] Immature granulocytes/100 WB C Auto (Bld)Ordered By: Kaylieoskar Trujillo on 09-10-2023 Immature granulocytes/100 WBC (Bld) 0.500 % 0.0-0.9 [facility] Comment on above: IG% - Immature Granu locytes (promyelocytes, myelocytes and metamyelocytes) > 1% indicates that a LEFT SHIFT is Present. Laboratory - Chemistry and C hemistry - challengeOrdered By: Kaylie Trujillo on 09-10-2023 Cholesterol in HDL [Mass/Vol] 31 mg/dL >40 [facility] Comment on above: The drugs N-Acetylcy steine and Metamizole may falsely depress this assay. Reference Range HDL <40 mg/dL Low HDL Cholesterol HDL >or= 60 mg/dL High HDL Cholesterol Cholesterol in LDL [Mass/Vol] 64 mg/dL 0-130 [facility] CO2 [Moles/Vol] 31.0 mmol/L 21.0-32.0 [facility] Cobalamin (Vitamin B12) [Mass/Vol] 300 pg/mL 211-911 [facility] Magnesium [Mass/Vol] 1.8 mg/dL 1.6-2.6 [facility] Urea nitrogen/Creatinine [Mass ratio] 20.4 mg/mg 10-20 [facility] Laboratory - Hematology and Cell countsOrdered By: Kaylie Trujillo on 09-10-2023 MCH (RBC) [Entitic mass] 26.1 pg 27.0-32.0 [facility] MCHC (RBC) [Mass/Vol] 31.7 g/dL 32-36 [facility] Nucleated RBC/100 WBC (Bld) [Ratio] 0 % 0-5 [facility] Platelet mean volume (Bld) [Entitic vol] 9.8 fL 6.2-12.0 [facility] Platelets (Bld) [#/Vol] 262 10*3/uL 150-450 [facility] No Panel InformationOrdered By: Kaylie Trujillo on 09-10-2023 Estimated GFR (MDRD) Amer 92 mL/min >60 [facility] Comment on above: GFR Calc Estimated GFR (MDRD) Non-Af Amer 76 mL/min >60 [facility] Comment on above: Non- GFR Calc Vitamin D 25-Hydroxy 18.5 ng/mL [facility] Comment on above: Vitamin D 25(OH) Sta tus Range Deficiency <20 ng/mL (50nmol/L) Insufficiency 20 - 30 ng/mL (50 - 75 nmol/L) Sufficiency 30 - 100 ng/mL (75 - 250 nmol/L) Toxicity >100 ng/mL (>250 nmol/L) VLDL Cholesterol 45 mg/dL 5-40 [facility] RBC Auto (Bld) [#/Vol]Ordere d By: Kaylie Trujillo on 09-10-2023 RBC (Bld) [#/Vol] 4.44 10*6/uL 4.2-5.4 [facility] Serum or plasma calcium xiomara urement (mass/volume)Ordered By: Kaylie Trujillo on 09-10-2023 Calcium [Mass/Vol] 8.7 mg/dL 8.5-10.1 [facility] Serum or plasma creatinine m easurement (mass/volume)Ordered By: Kaylie Trujillo on 09-10-2023 Creatinine [Mass/Vol] 0.83 mg/dL 0.55-1.02 [facility] Comment on above: The validity of the calculated GFR & GFRAA in patients over 70 years has not been determined. Clinical correlation is essential. Serum or plasma thyroid stim ulating hormone (TSH) measurement (units/volume)Ordered By: Kaylie Trujillo on 09-10-2023 TSH Qn 5.60 uIU/mL 0.358-3.74 [facility] Serum or plasma urea nitroge n measurement (mass/volume)Ordered By: Kaylie Trujillo on 09-10-2023 Urea nitrogen [Mass/Vol] 17 mg/dL 7-18 [facility] Thin prep Papanicolaou smear with manual screeningOrdered By: Kaylie rTujillo on 09-10-2023 Thin prep Papanicolaou smear with manual screening 9 5-15 [facility] Whole blood hemoglobin A1c/t otal hemoglobin ratio (mass fraction)Ordered By: Kaylie Trujillo on 09-10-2023 HbA1c (Bld) [Mass fraction] 10.8 % 3.8-5.6 [facility] Comment on above: Normal < 5.7 % Predi abetic 5.7 - 6.4 % Diabetic >or= 6.5 % Please note range changes. CASE MANAGEMon 09-07-2023 CASE MANAGEM HNO ID: [id number] Author: JAMESON BARON RN Service: ? Author Type: Registered Nurse Type: Care Mgt Progress Note Filed: 09/07/2023 14:42 Note Text: CARE MANAGEMENT DISCHARGE NOTE SERVICE DATE: September 07, 2023 SERVICE TIME: 2:41 PM Admission Date: 09/02/2023 LOS: 5 days Discharge Arrangement Discharge Arrangement: Fdc Facility Services Arranged Provider Name: [facility] Caregiver Assessment Caregiver is ready, willing and able to meet the patient's needs as recommended by the inter-professional team: Yes Name of Caregiver: SNF Transportation Arrangements Transportation Arrangements: Ambulance Transportation Agency and Phone #:: [facility] ( [facility] ) [phone] / [phone] Date of Trip: 09/07/23 Time of Trip: 1700 Type of Service: BLS Non-emergency Is Patient Medicaid Pending?: No [employer] Recorder Location: [facility] Destination: [facility] Financial Care Management Responsibility: None Handoff Communication: Handoff to: Other Caregiver Other Caregiver Name/Phone: nurse to call report Additional Information: Patient to discharge to [facility]. [facility] transport via cot set up for patient at 5PM. Patient and nurse made aware. Transport folder complete and on the chart. SIGNATURE: Jameson Baron RN PATIENT NAME: Trenton Jackson DATE: September 07, 2023 TIME: 2:41 PM CONTACT #: [phone] Andrea [facility] CARRIEDSdon 09-07-2023 [facility] HNO ID: [id number] Author: FREDA MACEDO MD Service: General Surgery [...] Doctor: Freda Macedo MD Primary Care Provider: [facility] My Medical Team Members: Treatment Team: Attending Provider: Freda Macedo MD Consulting: Jair Gutierrez MD Consulting: Diya May MD MY CONDITION AT DISCHARGE: Stable REASON I WAS IN THE HOSPITAL: Fall SUMMARY OF WHAT HAPPENED WHILE I WAS IN THE HOSPITAL: Ms. Jackson was admitted at [facility] on 09/02/2023 following a fall. She was found to have the following acute traumatic injuries: 1. Right-sided acute comminuted intertrochanteric proximal femur fracture She was evaluated by orthopedic who recommended surgical fixation of her femur fracture, which she underwent on 09/03/2023. She was evaluated by physical and occupational therapy who recommended a Fdc Facility for her ongoing recovery. Ms. Jackson [...] disorder, mild, abuse Coronary artery disease involving unga coronary artery of unga heart without angina pectoris Trauma Fall Resolved Problems: * No resolved hospital problems. * OPERATIONS PERFORMED WHILE IN THE HOSPITAL: 09/03/2023 - Right hip CMN (Dr. May) IMPORTANT TEST/PROCEDURES: No procedures performed TEST RESULTS NOT AVAILABLE AT THIS TIME: No pending results Discharge Disposition Discharge Disposition: Fdc Facility - Less than 30 Days Activity When You Leave the Hospital May bathe and shower Resume pre-hospital activity Diet Instructions Resume your pre-hospital diet For Pain When You Leave the Hospital Continue taking previously prescribed pain medications as directed If you become constipated, you may use any xcwh-xuy-cbpuwus treatment such as Milk of Magnesia, Sennakot, Prune Juice, Suppositories, etc. in addition to the stool softener/fiber supplement Use the dispensed medication (see prescription) You should use an ggsq-lsx-mljqxfr stool softener (Docusate sodium) and/or a fiber [...] call for appointment?: Yes Diya May MD [phone] [address] PCP Requested Referral Follow-Up Appointment Please discuss [...] for appointment?: [facility] [phone] [facility] [address] [facility] [phone] (more content not included)... Normal [facility] ED PROV NOTEon 09-07-2023 ED PROV NOTE HNO ID: [id number] Author: MIRNA SAHU MD Service: Emergency Medicine [...] in her bathroom. She was seen at [facility] where she was noted to have right [...] (more content not included)... Normal [facility] Basic metabolic 2000 panelon 09-06-2023 Anion gap [Moles/Vol] 9 mmol/L Normal 9-18 [facility] Comment on above: Order Comment: Eileeni cecily Type: BLOOD SPECIMEN Ordering Facility: [facility] Address: [address] [place] [address] Performed By: #### 5 8410-2 #### [facility] CLIA [id number] [address] [place] [address] [place] Calcium [Mass/Vol] 8.4 mg/dL Low 8.5-10.2 [facility] Comment on above: Order Comment: Radha tony Type: BLOOD SPECIMEN Ordering Facility: [facility] Address: [address] [place] [address] Performed By: #### 5 8410-2 #### [facility] CLIA [id number] [address] [place] [address] [place] Chloride [Moles/Vol] 97 mmol/L Normal 97-105 [facility] Comment on above: Order Comment: Speci men Type: BLOOD SPECIMEN Ordering Facility: [facility] Address: [address] [place] [address] Performed By: #### 5 8410-2 #### [facility] CLIA [id number] [address] [place] [address] [place] CO2 [Moles/Vol] 29 mmol/L Normal 22-30 [facility] Comment on above: Order Comment: Speckam cecily Type: BLOOD SPECIMEN Ordering Facility: [facility] Address: [address] [place] [address] Performed By: #### 5 8410-2 #### [facility] CLIA [id number] [address] [place] Creatinine [Mass/Vol] 0.69 mg/dL Normal 0.58-0.96 [facility] Comment on above: Order Comment: Eileenkam tony Type: BLOOD SPECIMEN Ordering Facility: [facility] Address: [address] [place] [address] Performed By: #### 5 8410-2 #### [facility] CLIA [id number] [address] Creatinine and Glomerular filtration rate.predicted panel (S/P/Bld) 105 mL/min/1.73m??? Normal >=60 [facility] Comment on above: Order Comment: Eileenkam tony Type: BLOOD SPECIMEN Ordering Facility: [facility] Address: [address] [place] [address] Result Comment: Crissy mated Glomerular Filtration Rate [...] GFR. Performed By: #### 5 8410-2 #### [facility] CLIA [id number] [address] [place] Glucose [Mass/Vol] 120 mg/dL High 74-99 [facility] Comment on above: Order Comment: Radha tony Type: BLOOD SPECIMEN Ordering Facility: [facility] Address: [address] [place] [address] Result Comment: The [place] Diabetes Association (ADA) provides guidance for cutoff [...] Standards of Medical Care in Diabetes 2016, [place] Diabetes Association. Diabetes Care. 2016.39(Suppl 1). Performed By: #### 5 8410-2 #### [facility] CLIA [id number] [address] [place] OF [facility] Potassium [Moles/Vol] 3.8 mmol/L Normal 3.7-5.1 [facility] Comment on above: Order Comment: Speci men Type: BLOOD SPECIMEN Ordering Facility: [facility] Address: [address] [place] [address] Performed By: #### 5 8410-2 #### [facility] CLIA [id number] [address] [facility] Sodium [Moles/Vol] 135 mmol/L Low 136-144 [facility] Comment on above: Order Comment: Speci men Type: BLOOD SPECIMEN Ordering Facility: [facility] Address: [address] [place] [address] Performed By: #### 5 8410-2 #### [facility] CLIA [id number] [address] Urea nitrogen [Mass/Vol] 13 mg/dL Normal 7-21 [facility] Comment on above: Order Comment: Speci men Type: BLOOD SPECIMEN Ordering Facility: [facility] Address: [address] [place] [address] Performed By: #### 5 8410-2 #### [facility] CLIA [id number] [address] [place] CBC panel Auto (Bld)on 09-05 Erythrocyte distribution width (RBC) [Ratio] 14.1 % Normal 11.5-15.0 [facility] Comment on above: Order Comment: Speci men Type: BLOOD SPECIMEN Ordering Facility: [facility] Address: [address] [place] [address] Performed By: #### 5 8410-2 #### [facility] CLIA [id number] [address] Hematocrit (Bld) [Volume fraction] 31.4 % Low 36.0-46.0 [facility] Comment on above: Order Comment: Speci men Type: BLOOD SPECIMEN Ordering Facility: [facility] Address: [address] [place] [address] Performed By: #### 5 8410-2 #### [facility] CLIA [id number] [address] OF [facility] Hemoglobin (Bld) [Mass/Vol] 10.1 g/dL Low 11.5-15.5 [facility] Comment on above: Order Comment: Speci men Type: BLOOD SPECIMEN Ordering Facility: [facility] Address: [address] [place] [address] Performed By: #### 5 8410-2 #### [facility] CLIA [id number] [address] MCH (RBC) [Entitic mass] 26.5 pg Normal 26.0-34.0 [facility] Comment on above: Order Comment: Speci men Type: BLOOD SPECIMEN Ordering Facility: [facility] Address: [address] [place] [address] Performed By: #### 5 8410-2 #### [facility] CLIA [id number] [address] [place] MCHC (RBC) [Mass/Vol] 32.2 g/dL Normal 30.5-36.0 [facility] Comment on above: Order Comment: Speci men Type: BLOOD SPECIMEN Ordering Facility: [facility] Address: [address] [place] [address] Performed By: #### 5 8410-2 #### [facility] CLIA [id number] [address] [place] [address] [place] MCV (RBC) [Entitic vol] 82.4 fL Normal 80.0-100.0 [facility] Comment on above: Order Comment: Speci men Type: BLOOD SPECIMEN Ordering Facility: [facility] Address: [address] [place] [address] Performed By: #### 5 8410-2 #### [facility] CLIA [id number] [address] [place] Nucleated RBC (Bld) [#/Vol] 10*3/uL Normal <0.01 [facility] Comment on above: Order Comment: Speci men Type: BLOOD SPECIMEN Ordering Facility: [facility] Address: [address] [place] [address] Performed By: #### 5 8410-2 #### [facility] CLIA [id number] [address] Platelet mean volume (Bld) [Entitic vol] 10.2 fL Normal 9.0-12.7 [facility] Comment on above: Order Comment: Speci men Type: BLOOD SPECIMEN Ordering Facility: [facility] Address: [address] [place] [address] Performed By: #### 5 8410-2 #### [facility] CLIA [id number] [address] Platelets (Bld) [#/Vol] 135 10*3/uL Low 150-400 [facility] Comment on above: Order Comment: Speci men Type: BLOOD SPECIMEN Ordering Facility: [facility] Address: [address] [place] [address] Result Comment: No c lot detected. Performed By: #### 5 8410-2 #### [facility] CLIA [id number] [address] [place] RBC (Bld) [#/Vol] 3.81 10*6/uL Low 3.90-5.20 [facility] Comment on above: Order Comment: Speci men Type: BLOOD SPECIMEN Ordering Facility: [facility] Address: [address] [place] [address] Performed By: #### 5 8410-2 #### [facility] CLIA [id number] [address] [place] [address] [facility] WBC (Bld) [#/Vol] 9.50 10*3/uL Normal 3.70-11.00 [facility] Comment on above: Order Comment: Speci men Type: BLOOD SPECIMEN Ordering Facility: [facility] Address: [place] [address] Performed By: #### 5 8410-2 #### [facility] CLIA [id number] [address] [place] [address] [facility] THERAPY NTon 09-06-2023 THERAPY NT HNO ID: [id number] Author: EILEEN MACIAS, PT Service: Physical Therapy Author Type: Physical Therapist Type: Therapy (PT/OT/Speech/Resp) Filed: 09/06/2023 13:17 Note Text: Physical Therapy Treatment Summary SERVICE DATE: 09/06/2023 SERVICE TIME: 1030 to 1053 ROOM: [place] [address] PT 6 Clicks Score: 10 DISCHARGE RECOMMENDATIONS [...] Required With: Transportation 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 SUBJECTIVE Agreeable to PT, reports increased pain this session. Emotional, tearful. THERAPY DIAGNOSIS Reduced mobility-other, Muscle Weakness (generalized), Unsteadiness on feet, Abnormalities of gait and mobility-other, General symptoms and signs-other, Difficulty walking-musculoskeletal TREATMENT INTERVENTIONS Therapeutic Activity (86555), Therapeutic Exercise (87411) Timed Code Treatment (minutes): 23 Skilled Treatment Time (minutes): 23 Therapeutic Exercise (49391) Treatment Minutes: 13 $ Therapeutic Exercise (97529) Billed Units: 1 unit Patient completed right hip fracture protocol (ankle pump, quad set, gluteal set, heel slide, hip abd/add to neutral, short arc quad, hip adductor squeeze) x 10 reps with min/mod amount of assist. Patient reports moderate/severe pain. Patient set up with ice to surgical hip and elevated lower extremity as needed. Therapeutic Activity (70080) Treatment Minutes: 10 $ Therapeutic Activity (83739) Billed Units: 1 unit Rolling for hygiene, [...] 2023 TIME: 1:14 PM Normal [facility] Basic metabolic 2000 panelon 09-05-2023 Anion gap [Moles/Vol] 9 mmol/L Normal 9-18 [facility] Comment on above: Order Comment: Speci men Type: BLOOD SPECIMEN Ordering Facility: [facility] Address: [address] [place] [address] Performed By: #### 2 4321-2 #### [facility] CLIA [id number] [address] [place] [address] [place] Calcium [Mass/Vol] 8.5 mg/dL Normal 8.5-10.2 [facility] Comment on above: Order Comment: Speci men Type: BLOOD SPECIMEN Ordering Facility: [facility] Address: [address] [place] [address] Performed By: #### 2 4321-2 #### [facility] CLIA [id number] [address] [place] [address] [place] Chloride [Moles/Vol] 96 mmol/L Low 97-105 [facility] Comment on above: Order Comment: Speci men Type: BLOOD SPECIMEN Ordering Facility: [facility] Address: [address] [place] [address] Performed By: #### 2 4321-2 #### [facility] CLIA [id number] [address] [place] [address] [place] CO2 [Moles/Vol] 28 mmol/L Normal 22-30 [facility] Comment on above: Order Comment: Speci men Type: BLOOD SPECIMEN Ordering Facility: [facility] Address: [address] [place] [address] Performed By: #### 2 4321-2 #### [facility] CLIA [id number] [address] [place] [address] [place] Creatinine [Mass/Vol] 0.63 mg/dL Normal 0.58-0.96 [facility] Comment on above: Order Comment: Speci men Type: BLOOD SPECIMEN Ordering Facility: [facility] Address: [address] [place] [address] Performed By: #### 2 4321-2 #### [facility] CLIA [id number] [address] [place] [address] [place] Creatinine and Glomerular filtration rate.predicted panel (S/P/Bld) 107 mL/min/1.73m??? Normal >=60 [facility] Comment on above: Order Comment: Radha tony Type: BLOOD SPECIMEN Ordering Facility: [facility] Address: [address] [place] [address] Result Comment: Crissy mated Glomerular Filtration Rate [...] GFR. Performed By: #### 2 4321-2 #### [facility] CLIA [id number] [address] [place] [address] [place] Glucose [Mass/Vol] 110 mg/dL High 74-99 [facility] Comment on above: Order Comment: Radha tony Type: BLOOD SPECIMEN Ordering Facility: [facility] Address: [address] [place] [address] Result Comment: The [place] Diabetes Association (ADA) provides guidance for cutoff [...] Standards of Medical Care in Diabetes 2016, [place] Diabetes Association. Diabetes Care. 2016.39(Suppl 1). Performed By: #### 2 4321-2 #### [facility] CLIA [id number] [address] [place] [address] [place] Potassium [Moles/Vol] 3.8 mmol/L Normal 3.7-5.1 [facility] Comment on above: Order Comment: Speci men Type: BLOOD SPECIMEN Ordering Facility: [facility] Address: [address] [place] [address] Performed By: #### 2 4321-2 #### [facility] CLIA [id number] [address] STATES OF [facility] Sodium [Moles/Vol] 133 mmol/L Low 136-144 [facility] Comment on above: Order Comment: Speci men Type: BLOOD SPECIMEN Ordering Facility: [facility] Address: [address] [place] [address] Performed By: #### 2 4321-2 #### [facility] CLIA [id number] [address] STATES OF [facility] Urea nitrogen [Mass/Vol] 13 mg/dL Normal 7-21 [facility] Comment on above: Order Comment: Speci men Type: BLOOD SPECIMEN Ordering Facility: [facility] Address: [address] [place] [address] Performed By: #### 2 4321-2 #### [facility] CLIA [id number] [address] STATES OF [facility] CBC panel Auto (Bld)on 09-04 Erythrocyte distribution width (RBC) [Ratio] 14.0 % Normal 11.5-15.0 [facility] Comment on above: Order Comment: Speci men Type: BLOOD SPECIMEN Ordering Facility: [facility] Address: [address] [place] [address] Performed By: #### 5 8410-2 #### [facility] CLIA [id number] [address] Hematocrit (Bld) [Volume fraction] 35.1 % Low 36.0-46.0 [facility] Comment on above: Order Comment: Speci men Type: BLOOD SPECIMEN Ordering Facility: [facility] Address: [address] [place] [address] Performed By: #### 5 8410-2 #### [facility] CLIA [id number] [address] Hemoglobin (Bld) [Mass/Vol] 11.5 g/dL Normal 11.5-15.5 [facility] Comment on above: Order Comment: Speci men Type: BLOOD SPECIMEN Ordering Facility: [facility] Address: [address] [place] [address] Performed By: #### 5 8410-2 #### [facility] CLIA [id number] [address] MCH (RBC) [Entitic mass] 26.7 pg Normal 26.0-34.0 [facility] Comment on above: Order Comment: Speci men Type: BLOOD SPECIMEN Ordering Facility: [facility] Address: [address] [place] [address] Performed By: #### 5 8410-2 #### [facility] CLIA [id number] [address] MCHC (RBC) [Mass/Vol] 32.8 g/dL Normal 30.5-36.0 [facility] Comment on above: Order Comment: Speci men Type: BLOOD SPECIMEN Ordering Facility: [facility] Address: [address] [place] [address] Performed By: #### 5 8410-2 #### [facility] CLIA [id number] [address] MCV (RBC) [Entitic vol] 81.4 fL Normal 80.0-100.0 [facility] Comment on above: Order Comment: Speci men Type: BLOOD SPECIMEN Ordering Facility: [facility] Address: [address] [place] [address] Performed By: #### 5 8410-2 #### [facility] CLIA [id number] [address] Nucleated RBC (Bld) [#/Vol] 10*3/uL Normal <0.01 [facility] Comment on above: Order Comment: Speci men Type: BLOOD SPECIMEN Ordering Facility: [facility] Address: [address] [place] [address] Performed By: #### 5 8410-2 #### [facility] CLIA [id number] [address] Platelet mean volume (Bld) [Entitic vol] 10.5 fL Normal 9.0-12.7 [facility] Comment on above: Order Comment: Speci men Type: BLOOD SPECIMEN Ordering Facility: [facility] Address: [address] [place] [address] Performed By: #### 5 8410-2 #### [facility] CLIA [id number] [address] Platelets (Bld) [#/Vol] 111 10*3/uL Low 150-400 [facility] Comment on above: Order Comment: Speci men Type: BLOOD SPECIMEN Ordering Facility: [facility] Address: [address] [place] [address] Result Comment: No c lot detected. Performed By: #### 5 8410-2 #### [facility] CLIA [id number] [address] RBC (Bld) [#/Vol] 4.31 10*6/uL Normal 3.90-5.20 [facility] Comment on above: Order Comment: Speci men Type: BLOOD SPECIMEN Ordering Facility: [facility] Address: [address] [place] [address] Performed By: #### 5 8410-2 #### [facility] CLIA [id number] [address] [place] WBC (Bld) [#/Vol] 13.47 10*3/uL High 3.70-11.00 [facility] Comment on above: Order Comment: Speci men Type: BLOOD SPECIMEN Ordering Facility: [facility] Address: [address] [place] [address] Performed By: #### 5 8410-2 #### [facility] CLIA [id number] [address] THERAPY NTon 09-05-2023 THERAPY NT HNO ID: [id number] Author: EILEEN MACIAS, PT Service: Physical Therapy Author Type: Physical Therapist Type: Therapy (PT/OT/Speech/Resp) Filed: 09/05/2023 13:25 Note Text: Physical Therapy Treatment Summary SERVICE DATE: 09/05/2023 SERVICE TIME: 1039 to 1102 ROOM: [place] [address] PT 6 Clicks Score: 10 DISCHARGE RECOMMENDATIONS [...] Required With: Transportation 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 SUBJECTIVE Pleasant and agreeable to PT. THERAPY DIAGNOSIS Reduced mobility-other, Muscle Weakness (generalized), Unsteadiness on feet, Abnormalities of gait and mobility-other, General symptoms and signs-other, Difficulty walking-musculoskeletal TREATMENT INTERVENTIONS Therapeutic Exercise (73478), Therapeutic Activity (09279) Timed Code Treatment (minutes): 23 Skilled Treatment Time (minutes): 23 Therapeutic Exercise (11127) Treatment Minutes: 12 $ Therapeutic Exercise (68486) Billed Units: 1 unit Patient completed right hip fracture protocol (ankle pump, quad set, gluteal set, heel slide, hip abd/add to neutral, short arc quad, long arc quad, hip adductor squeeze) x 10 reps with min amount of assist. Patient reports moderate pain. Patient set up with ice to surgical hip and elevated lower extremity as needed. Therapeutic Activity (70060) Treatment Minutes: 11 $ Therapeutic Activity (88509) Billed Units: 1 unit TRAINING AND EDUCATION [...] 2023 TIME: 1:23 PM Normal [facility] ANES POSTPROC EVALon 024 ANES POSTPROC EVAL HNO ID: [id number] Author: MOODY HODGE DO Service: Anesthesiology Author [...] November 02, 2023 TIME: 10:25 AM CSN: [id number] Normal [facility] Basic metabolic 2000 panelon 09-04-2023 Anion gap [Moles/Vol] 9 mmol/L Normal 9-18 [facility] Comment on above: Order Comment: Speci men Type: BLOOD SPECIMEN Ordering Facility: [facility] Address: [address] [place] [address] Performed By: #### 2 4321-2 #### [facility] CLIA [id number] 1 [place] [address] [place] Calcium [Mass/Vol] 8.5 mg/dL Normal 8.5-10.2 [facility] Comment on above: Order Comment: Speci men Type: BLOOD SPECIMEN Ordering Facility: [facility] Address: [address] [place] [address] Performed By: #### 2 4321-2 #### [facility] CLIA [id number] [address] OF [facility] Chloride [Moles/Vol] 97 mmol/L Normal 97-105 [facility] Comment on above: Order Comment: Speci men Type: BLOOD SPECIMEN Ordering Facility: [facility] Address: [address] [place] [address] Performed By: #### 2 4321-2 #### [facility] CLIA [id number] [address] OF [place] CO2 [Moles/Vol] 30 mmol/L Normal 22-30 [facility] Comment on above: Order Comment: Speci men Type: BLOOD SPECIMEN Ordering Facility: [facility] Address: [address] [place] [address] Performed By: #### 2 4321-2 #### [facility] CLIA [id number] [address] OF [facility] Creatinine [Mass/Vol] 0.78 mg/dL Normal 0.58-0.96 [facility] Comment on above: Order Comment: Speci men Type: BLOOD SPECIMEN Ordering Facility: [facility] Address: [address] [place] [address] Performed By: #### 2 4321-2 #### [facility] CLIA [id number] [address] Creatinine and Glomerular filtration rate.predicted panel (S/P/Bld) 92 mL/min/1.73m??? Normal >=60 [facility] Comment on above: Order Comment: Speci men Type: BLOOD SPECIMEN Ordering Facility: [facility] Address: [address] [place] [address] Result Comment: Crissy mated Glomerular Filtration Rate [...] GFR. Performed By: #### 2 4321-2 #### [facility] CLIA [id number] 1 [place] [address] [place] Glucose [Mass/Vol] 174 mg/dL High 74-99 [facility] Comment on above: Order Comment: Radha tony Type: BLOOD SPECIMEN Ordering Facility: [facility] Address: [address] [place] [address] Result Comment: The [place] Diabetes Association (ADA) provides guidance for cutoff [...] Standards of Medical Care in Diabetes 2016, [place] Diabetes Association. Diabetes Care. 2016.39(Suppl 1). Performed By: #### 2 4321-2 #### [facility] CLIA [id number] 1 [place] [address] [place] Potassium [Moles/Vol] 3.8 mmol/L Normal 3.7-5.1 [facility] Comment on above: Order Comment: Radha tony Type: BLOOD SPECIMEN Ordering Facility: [facility] Address: [address] [place] [address] Performed By: #### 2 4321-2 #### [facility] CLIA [id number] 1 [place] [address] [place] Sodium [Moles/Vol] 136 mmol/L Normal 136-144 [facility] Comment on above: Order Comment: Radha tony Type: BLOOD SPECIMEN Ordering Facility: [facility] Address: [address] [place] [address] Performed By: #### 2 4321-2 #### [facility] CLIA [id number] [address] STATES OF [facility] Urea nitrogen [Mass/Vol] 13 mg/dL Normal 7-21 [facility] Comment on above: Order Comment: Speci men Type: BLOOD SPECIMEN Ordering Facility: [facility] Address: [address] [place] [address] Performed By: #### 2 4321-2 #### [facility] CLIA [id number] [address] OF [facility] CBC panel Auto (Bld)on 09-03 Erythrocyte distribution width (RBC) [Ratio] 14.1 % Normal 11.5-15.0 [facility] Comment on above: Order Comment: Speci men Type: BLOOD SPECIMEN Ordering Facility: [facility] Address: [address] [place] [address] Performed By: #### 2 4321-2 #### [facility] CLIA [id number] [address] Hematocrit (Bld) [Volume fraction] 37.7 % Normal 36.0-46.0 [facility] Comment on above: Order Comment: Speci men Type: BLOOD SPECIMEN Ordering Facility: [facility] Address: [address] [place] [address] Performed By: #### 2 4321-2 #### [facility] CLIA [id number] [address] OF [facility] Hemoglobin (Bld) [Mass/Vol] 12.3 g/dL Normal 11.5-15.5 [facility] Comment on above: Order Comment: Speci men Type: BLOOD SPECIMEN Ordering Facility: [facility] Address: [address] [place] [address] Performed By: #### 2 4321-2 #### [facility] CLIA [id number] [address] MCH (RBC) [Entitic mass] 26.8 pg Normal 26.0-34.0 [facility] Comment on above: Order Comment: Speci men Type: BLOOD SPECIMEN Ordering Facility: [facility] Address: [address] [place] [address] Performed By: #### 2 4321-2 #### [facility] CLIA [id number] [address] MCHC (RBC) [Mass/Vol] 32.6 g/dL Normal 30.5-36.0 [facility] Comment on above: Order Comment: Speci men Type: BLOOD SPECIMEN Ordering Facility: [facility] Address: [address] [place] [address] Performed By: #### 2 4321-2 #### [facility] CLIA [id number] [address] MCV (RBC) [Entitic vol] 82.1 fL Normal 80.0-100.0 [facility] Comment on above: Order Comment: Speci men Type: BLOOD SPECIMEN Ordering Facility: [facility] Address: [address] [place] [address] Performed By: #### 2 4321-2 #### [facility] CLIA [id number] [address] Nucleated RBC (Bld) [#/Vol] 10*3/uL Normal <0.01 [facility] Comment on above: Order Comment: Speci men Type: BLOOD SPECIMEN Ordering Facility: [facility] Address: [address] [place] [address] Performed By: #### 2 4321-2 #### [facility] CLIA [id number] [address] Platelet mean volume (Bld) [Entitic vol] 9.9 fL Normal 9.0-12.7 [facility] Comment on above: Order Comment: Speci men Type: BLOOD SPECIMEN Ordering Facility: [facility] Address: [address] [place] [address] Performed By: #### 2 4321-2 #### [facility] CLIA [id number] [address] [place] Platelets (Bld) [#/Vol] 108 10*3/uL Low 150-400 [facility] Comment on above: Order Comment: Speci men Type: BLOOD SPECIMEN Ordering Facility: [facility] Address: [address] [place] [address] Result Comment: No c lot detected. Performed By: #### 2 4321-2 #### [facility] CLIA [id number] [address] RBC (Bld) [#/Vol] 4.59 10*6/uL Normal 3.90-5.20 [facility] Comment on above: Order Comment: Speci men Type: BLOOD SPECIMEN Ordering Facility: [facility] Address: [address] [place] [address] Performed By: #### 2 4321-2 #### [facility] CLIA [id number] [address] WBC (Bld) [#/Vol] 12.21 10*3/uL High 3.70-11.00 [facility] Comment on above: Order Comment: Speci men Type: BLOOD SPECIMEN Ordering Facility: [facility] Address: [address] [place] [address] Performed By: #### 2 4321-2 #### [facility] CLIA [id number] [address] Comprehensive metabolic 2000 panelon 09-04-2023 Albumin [Mass/Vol] 2.6 g/dL Low 3.9-4.9 [facility] Comment on above: Order Comment: Speci men Type: BLOOD SPECIMEN Ordering Facility: [facility] Address: [address] [place] [address] Performed By: #### 2 4321-2 #### [facility] CLIA [id number] [address] ALP [Catalytic activity/Vol] 92 U/L Normal 34-123 [facility] Comment on above: Order Comment: Speci men Type: BLOOD SPECIMEN Ordering Facility: [facility] Address: [address] [place] [address] Performed By: #### 2 4321-2 #### [facility] CLIA [id number] [address] OF [facility] ALT With P-5'-P [Catalytic activity/Vol] 9 U/L Normal 7-38 [facility] Comment on above: Order Comment: Speci men Type: BLOOD SPECIMEN Ordering Facility: [facility] Address: [address] [place] [address] Performed By: #### 2 4321-2 #### [facility] CLIA [id number] [address] [place] Anion gap [Moles/Vol] 6 mmol/L Low 9-18 [facility] Comment on above: Order Comment: Speci men Type: BLOOD SPECIMEN Ordering Facility: [facility] Address: [address] [place] [address] Performed By: #### 2 4321-2 #### [facility] CLIA [id number] [address] AST With P-5'-P [Catalytic activity/Vol] 13 U/L Normal 13-35 [facility] Comment on above: Order Comment: Speci men Type: BLOOD SPECIMEN Ordering Facility: [facility] Address: [address] [place] [address] Performed By: #### 2 4321-2 #### [facility] CLIA [id number] [address] OF [facility] Bilirubin [Mass/Vol] 0.8 mg/dL Normal 0.2-1.3 [facility] Comment on above: Order Comment: Speci men Type: BLOOD SPECIMEN Ordering Facility: [facility] Address: [address] [place] [address] Performed By: #### 2 4321-2 #### [facility] CLIA [id number] [address] OF [facility] Calcium [Mass/Vol] 8.4 mg/dL Low 8.5-10.2 [facility] Comment on above: Order Comment: Speci men Type: BLOOD SPECIMEN Ordering Facility: [facility] Address: [address] [place] [address] Performed By: #### 2 4321-2 #### [facility] CLIA [id number] [address] [place] Chloride [Moles/Vol] 98 mmol/L Normal 97-105 [facility] Comment on above: Order Comment: Speci men Type: BLOOD SPECIMEN Ordering Facility: [facility] Address: [address] [place] [address] Performed By: #### 2 4321-2 #### [facility] CLIA [id number] [address] [place] CO2 [Moles/Vol] 30 mmol/L Normal 22-30 [facility] Comment on above: Order Comment: Speci men Type: BLOOD SPECIMEN Ordering Facility: [facility] Address: [address] [place] [address] Performed By: #### 2 4321-2 #### [facility] CLIA [id number] [address] [place] [address] OF [facility] Creatinine [Mass/Vol] 0.66 mg/dL Normal 0.58-0.96 [facility] Comment on above: Order Comment: Speci men Type: BLOOD SPECIMEN Ordering Facility: [facility] Address: [address] [place] [address] Performed By: #### 2 4321-2 #### [facility] CLIA [id number] [address] Creatinine and Glomerular filtration rate.predicted panel (S/P/Bld) 106 mL/min/1.73m??? Normal >=60 [facility] Comment on above: Order Comment: Speci men Type: BLOOD SPECIMEN Ordering Facility: [facility] Address: [address] [place] [address] Result Comment: Crissy mated Glomerular Filtration Rate [...] GFR. Performed By: #### 2 4321-2 #### [facility] CLIA [id number] 1 [place] [address] [place] Glucose [Mass/Vol] 160 mg/dL High 74-99 [facility] Comment on above: Order Comment: Radha tony Type: BLOOD SPECIMEN Ordering Facility: [facility] Address: [address] [place] [address] Result Comment: The [place] Diabetes Association (ADA) provides guidance for cutoff [...] Standards of Medical Care in Diabetes 2016, [place] Diabetes Association. Diabetes Care. 2016.39(Suppl 1). Performed By: #### 2 4321-2 #### [facility] CLIA [id number] 1 [place] [address] [place] Potassium [Moles/Vol] 3.7 mmol/L Normal 3.7-5.1 [facility] Comment on above: Order Comment: Radha tony Type: BLOOD SPECIMEN Ordering Facility: [facility] Address: [address] [place] [address] Performed By: #### 2 4321-2 #### [facility] CLIA [id number] 1 [place] [address] [place] Protein [Mass/Vol] 5.8 g/dL Low 6.3-8.0 [facility] Comment on above: Order Comment: Radha tony Type: BLOOD SPECIMEN Ordering Facility: [facility] Address: [address] [place] [id number] Performed By: #### 2 4321-2 #### [facility] CLIA [id number] [address] [place] Sodium [Moles/Vol] 134 mmol/L Low 136-144 [facility] Comment on above: Order Comment: Eileeni men Type: BLOOD SPECIMEN Ordering Facility: [facility] Address: [address] [place] [address] Performed By: #### 2 4321-2 #### [facility] CLIA [id number] [address] [place] Urea nitrogen [Mass/Vol] 13 mg/dL Normal 7-21 [facility] Comment on above: Order Comment: Speci men Type: BLOOD SPECIMEN Ordering Facility: [facility] Address: [address] [place] [address] Performed By: #### 2 4321-2 #### [facility] CLIA [id number] [address] HbA1c (Bld)on 09-04-2023 Average glucose Estimated from glycated hemoglobin (Bld) [Mass/Vol] 272 mg/dL Normal [facility] Comment on above: Order Comment: Speci men Type: BLOOD SPECIMEN Ordering Facility: [facility] Address: [address] [place] [address] Result Comment: eAG: (Estimated average glucose) is a calculated value from HgbA1c and is sales representative girls' apparel of the average blood glucose level in the last 2-3 month period. Performed By: #### 2 4321-2 #### [facility] CLIA [id number] [address] OF [facility] HbA1c (Bld) [Mass fraction] 11.1 % High 4.3-5.6 [facility] Comment on above: Order Comment: Eileeni men Type: BLOOD SPECIMEN Ordering Facility: [facility] Address: [address] [place] [address] Result Comment: Denny ican Diabetes Association guidelines indicate that patients with HgbA1c in the range 5.7-6.4% are at increased risk for development of diabetes, and intervention by lifestyle modification may be beneficial. HgbA1c greater or equal to 6.5% is considered diagnostic of diabetes. 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 SUBJECTIVE Pleasant and agreeable to PT. THERAPY DIAGNOSIS Reduced mobility-other, Muscle Weakness (generalized), Unsteadiness on feet, Abnormalities of gait and mobility-other, General symptoms and signs-other, Difficulty walking-musculoskeletal TREATMENT INTERVENTIONS Evaluation, Therapeutic Activity (74584) Timed Code Treatment (minutes): 8 Skilled Treatment Time (minutes): 23 $ Evaluation-Moderate (16695) Billed Units: 1 unit Therapeutic Activity (97018) Treatment Minutes: 8 $ Therapeutic Activity (81721) Billed Units: 1 unit Instructed weight bearing [...] 2023 TIME: 12:19 PM Normal [facility] THERAPY NT HNO ID: [id number] Author: KEREN CHAN OTR/L Service: Occupational Therapy Author Type: Occupational Therapist Type: Therapy (PT/OT/Speech/Resp) Filed: 09/04/2023 09:28 Note Text: Occupational Therapy Evaluation Summary SERVICE DATE: 09/04/2023 SERVICE TIME: 816 to 845 ROOM: [place] [address] OT 6 Clicks Score: 16 DISCHARGE RECOMMENDATIONS [...] Required With: Transportation 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 Sleeps [...] and signs-other TREATMENT INTERVENTIONS Evaluation, Therapeutic Activity (85691) Timed Code Treatment (minutes): 12 Skilled Treatment Time (minutes): 29 $ Evaluation - Moderate (94121) Billed Units: 1 unit Therapeutic Activity (60492) Treatment Minutes: 12 $ Therapeutic Activity (99629) Billed Units: 1 unit TRAINING AND EDUCATION PROVIDED Assistive Device Use, Bed Mobility, Benefits of In-Hospital Mobility, Discharge Planning, Disease Specific Education, Functional Mobility Involving ADLs, Role of Occupational Therapy, Safety/Judgment, Precautions/Restrictions, Standing Balance to Improve [place] with ADLs/Self-Care, Transfer - Sit to Stand, [...] 2023 TIME: 9:26 AM Normal [facility] ANES PRE-OPon 09-03-2023 ANES PRE-OP HNO ID: [id number] Author: MOODY HODGE DO Service: Anesthesiology Author [...] Problems CARDIO (+) Coronary artery disease involving unga coronary artery of unga heart without angina pectoris (+) Essential hypertension [...] (HCC) -RENAL (+) ROBBIE (acute kidney injury) ([facility]) I - PHYSICAL EVALUATION AIRWAY Patient [...] (more content not included)... Normal [facility] BRIEF OP NOTon 09-03-2023 BRIEF OP NOT HNO ID: [id number] Author: JUANCARLOS ELDRIDGE MD Service: Orthopaedic Surgery Author Type: Resident Type: Brief Op Note Filed: 09/03/2023 13:25 Note Text: BRIEF OPERATIVE / PROCEDURE NOTE LOG ID: [id number] SURGERY/PROCEDURE DATE: 09/03/2023 INCISION/PROCEDURE START TIME: 12:41 PM INCISION CLOSE/PROCEDURE END TIME: SURGEON(S)/PROCEDURALIST( S) AND HR INTERNSHIP(S): Surgeon(s) and Role: * Diya May MD [...] Surgery 09/03/2023 1:21 PM Normal [facility] Basic metabolic 2000 panelon 09-03-2023 Anion gap [Moles/Vol] 7 mmol/L Low 9-18 [facility] Comment on above: Order Comment: Speci men Type: BLOOD SPECIMEN Ordering Facility: [facility] Address: [address] [place] [address] Performed By: #### 5 8410-2 #### [facility] CLIA [id number] 1 [place] [address] [place] Calcium [Mass/Vol] 8.8 mg/dL Normal 8.5-10.2 [facility] Comment on above: Order Comment: Speci men Type: BLOOD SPECIMEN Ordering Facility: [facility] Address: [address] [place] [address] Performed By: #### 5 8410-2 #### [facility] CLIA [id number] [address] [place] Chloride [Moles/Vol] 99 mmol/L Normal 97-105 [facility] Comment on above: Order Comment: Speci men Type: BLOOD SPECIMEN Ordering Facility: [facility] Address: [address] [place] [address] Performed By: #### 5 8410-2 #### [facility] CLIA [id number] [address] [place] CO2 [Moles/Vol] 32 mmol/L High 22-30 [facility] Comment on above: Order Comment: Speci men Type: BLOOD SPECIMEN Ordering Facility: [facility] Address: [address] [place] [address] Performed By: #### 5 8410-2 #### [facility] CLIA [id number] [address] [place] Creatinine [Mass/Vol] 0.56 mg/dL Low 0.58-0.96 [facility] Comment on above: Order Comment: Speci men Type: BLOOD SPECIMEN Ordering Facility: [facility] Address: [address] [place] [address] Performed By: #### 5 8410-2 #### [facility] CLIA [id number] [address] [place] Creatinine and Glomerular filtration rate.predicted panel (S/P/Bld) 110 mL/min/1.73m??? Normal >=60 [facility] Comment on above: Order Comment: Speci men Type: BLOOD SPECIMEN Ordering Facility: [facility] Address: [address] [place] [address] Result Comment: Crissy mated Glomerular Filtration Rate [...] GFR. Performed By: #### 5 8410-2 #### [facility] CLIA [id number] 1 [place] [address] [place] Glucose [Mass/Vol] 130 mg/dL High 74-99 [facility] Comment on above: Order Comment: Speci men Type: BLOOD SPECIMEN Ordering Facility: [facility] Address: [address] [place] [address] Result Comment: The [place] Diabetes Association (ADA) provides guidance for cutoff [...] Standards of Medical Care in Diabetes 2016, [place] Diabetes Association. Diabetes Care. 2016.39(Suppl 1). Performed By: #### 5 8410-2 #### [facility] CLIA [id number] [address] [place] Potassium [Moles/Vol] 3.5 mmol/L Low 3.7-5.1 [facility] Comment on above: Order Comment: Speci men Type: BLOOD SPECIMEN Ordering Facility: [facility] Address: [address] [place] [id number] Performed By: #### 5 8410-2 #### [facility] CLIA [id number] [address] [place] [address] [place] Sodium [Moles/Vol] 138 mmol/L Normal 136-144 [facility] Comment on above: Order Comment: Speci men Type: BLOOD SPECIMEN Ordering Facility: [facility] Address: [address] [place] [address] Performed By: #### 5 8410-2 #### [facility] CLIA [id number] [address] Urea nitrogen [Mass/Vol] 6 mg/dL Low 7-21 [facility] Comment on above: Order Comment: Speci men Type: BLOOD SPECIMEN Ordering Facility: [facility] Address: [address] [place] [address] Performed By: #### 5 8410-2 #### [facility] CLIA [id number] [address] CBC panel Auto (Bld)on 09-02 Erythrocyte distribution width (RBC) [Ratio] 13.6 % Normal 11.5-15.0 [facility] Comment on above: Order Comment: Speci men Type: BLOOD SPECIMEN Ordering Facility: [facility] Address: [address] [place] [address] Performed By: #### 5 8410-2 #### [facility] CLIA [id number] [address] Hematocrit (Bld) [Volume fraction] 39.4 % Normal 36.0-46.0 [facility] Comment on above: Order Comment: Speci men Type: BLOOD SPECIMEN Ordering Facility: [facility] Address: [address] [place] [address] Performed By: #### 5 8410-2 #### [facility] CLIA [id number] [address] Hemoglobin (Bld) [Mass/Vol] 13.2 g/dL Normal 11.5-15.5 [facility] Comment on above: Order Comment: Speci men Type: BLOOD SPECIMEN Ordering Facility: [facility] Address: [address] [place] [address] Performed By: #### 5 8410-2 #### [facility] CLIA [id number] [address] MCH (RBC) [Entitic mass] 26.6 pg Normal 26.0-34.0 [facility] Comment on above: Order Comment: Speci men Type: BLOOD SPECIMEN Ordering Facility: [facility] Address: [address] [place] [address] Performed By: #### 5 8410-2 #### [facility] CLIA [id number] [address] MCHC (RBC) [Mass/Vol] 33.5 g/dL Normal 30.5-36.0 [facility] Comment on above: Order Comment: Speci men Type: BLOOD SPECIMEN Ordering Facility: [facility] Address: [address] [place] [address] Performed By: #### 5 8410-2 #### [facility] CLIA [id number] [address] MCV (RBC) [Entitic vol] 79.4 fL Low 80.0-100.0 [facility] Comment on above: Order Comment: Speci men Type: BLOOD SPECIMEN Ordering Facility: [facility] Address: [address] [place] [address] Performed By: #### 5 8410-2 #### [facility] CLIA [id number] [address] Nucleated RBC (Bld) [#/Vol] 10*3/uL Normal <0.01 [facility] Comment on above: Order Comment: Speci men Type: BLOOD SPECIMEN Ordering Facility: [facility] Address: [address] [place] [address] Performed By: #### 5 8410-2 #### [facility] CLIA [id number] [address] Platelet mean volume (Bld) [Entitic vol] 9.6 fL Normal 9.0-12.7 [facility] Comment on above: Order Comment: Speci men Type: BLOOD SPECIMEN Ordering Facility: [facility] Address: [address] [place] [address] Performed By: #### 5 8410-2 #### [facility] CLIA [id number] [address] Platelets (Bld) [#/Vol] 146 10*3/uL Low 150-400 [facility] Comment on above: Order Comment: Speci men Type: BLOOD SPECIMEN Ordering Facility: [facility] Address: [address] [place] [address] Result Comment: No c lot detected. Performed By: #### 5 8410-2 #### [facility] CLIA [id number] [address] RBC (Bld) [#/Vol] 4.96 10*6/uL Normal 3.90-5.20 [facility] Comment on above: Order Comment: Speci men Type: BLOOD SPECIMEN Ordering Facility: [facility] Address: [address] [place] [address] Performed By: #### 5 8410-2 #### [facility] CLIA [id number] [address] WBC (Bld) [#/Vol] 13.08 10*3/uL High 3.70-11.00 [facility] Comment on above: Order Comment: Speci men Type: BLOOD SPECIMEN Ordering Facility: [facility] Address: [address] [place] [address] Performed By: #### 5 8410-2 #### [facility] CLIA [id number] [address] CONFIRM BLOOD TYPEon 024 ABO O Normal [facility] Comment on above: Order Comment: Speci men Type: BLOOD SPECIMEN Ordering Facility: [facility] Address: [address] [place] [address] Performed By: #### 5 8410-2 #### [facility] CLIA [id number] [address] Rh Nom (Bld) Positive Normal [facility] Comment on above: Order Comment: Speci men Type: BLOOD SPECIMEN Ordering Facility: [facility] Address: [address] [id number] Performed By: #### 5 8410-2 #### [facility] IA [id number] 1 [place] [address] [place] CONSULTon 09-03-2023 CONSULT HNO ID: [id number] Author: NATO RIVERA MD Service: Clinical Cardiology [...] anxiety Prior cardiac hx: - Severe CAD ([facility] showed severe single vessel proximal to mid LAD diffuse disease in [place], sent to [facility] for consideration of high risk PCI [...] CC echocardiographic exam performed on 03/10/2017 (ECHO) [facility] 12/2017: 1. Single-vessel coronary artery disease with a long segment of severe diffuse narrowing in the proximal and midportion of the LAD. Another stenosis in the distal portion. 2. Normal right and circumflex coronary arteries. 3. Normal left heart filling pressures. 4. No evidence of aortic stenosis. 5. The patient will be transferred to [facility] for assessment of myocardial viability and [...] (more content not included)... Normal [facility] HIGH SENSITIVITY TROPONIN T (SECOND)on 09-03-2023 Troponin T.cardiac High sensitivity method [Mass/Vol] 51 ng/L High <12 [facility] Comment on above: Order Comment: Radha tony Type: BLOOD SPECIMEN Ordering Facility: [facility] Address: [address] [place] [address] Result Comment: When assessing risk for acute [...] 30 day MACE. Performed By: #### L [id number] #### [facility] CLIA [id number] [address] [place] OF [facility] HIGH SENSITIVITY TROPONIN T (THIRD) 3 HRS AFTER INITIALon 09-03-2023 Troponin T.cardiac High sensitivity method [Mass/Vol] 63 ng/L High <12 [facility] Comment on above: Order Comment: Radha tony Type: BLOOD SPECIMEN Ordering Facility: [facility] Address: [address] [place] [address] Result Comment: When assessing risk for acute [...] MACE. Performed By: #### 5 8410-2 #### [facility] CLIA [id number] [address] OPERATIVE NOon 09-03-2023 OPERATIVE NO HNO ID: [id number] Author: DIYA MAY MD Service: Orthopaedic Surgery Author Type: Physician Type: Operative Report Filed: 09/03/2023 17:02 Note Text: OPERATIVE/PROCEDURE REPORT LOG ID: [id number] SURGERY/PROCEDURE DATE: 09/03/2023 INCISION/PROCEDURE START TIME: 12:41 PM INCISION CLOSE/PROCEDURE END TIME: 1:21 PM SURGEON(S)/PROCEDURALIST( S) AND HR INTERNSHIP(S): Surgeon(s) and Role: * Diya May MD - Primary * Juancarlos Eldridge MD - Resident - Assisting * Jerry Murray MD - Resident - Assisting No Additional Staff PRE-OP/PRE-PROCEDURE DIAGNOSIS: 1) Right intertrochanteric femur fracture POST-OP/POST-PROCEDURE DIAGNOSIS: 1) Same SURGERY/PROCEDURE(S): 1) Insertion of a Right Hip Intramedullary Femoral Nail for an Intertrochanteric Femur Fracture (CPT 25528) ANESTHESIA: 1) Choice - Anesthesia Consult ANTIBIOTICS: 1) Ancef 2g IV Ancef, 1g IV Vancomycin ESTIMATED BLOOD LOSS: 1) 100 CC SPECIMENS: 1) None CLINICAL INDICATIONS: 53 year old female presented to [facility] for evaluation after a fall. The patient [...] time-out was then conducted in accordance with [facility] policy. Incision along hip was [...] Implant Name Type Inv. Item Serial No. Ch[employer]illa [employer] Lot No. LRB No. Used Action NAIL TFN-ADVANCED 125D SHORT GREEN TITANIUM 170MM INTRAMEDULLARY CANNULATED - [id number] Nail NAIL TFN-ADVANCED 125D SHORT GREEN TITANIU (more content not included)... Normal [facility] THERAPY NTon 09-03-2023 THERAPY NT HNO ID: [id number] Author: KEREN CHAN OTR/Gian Service: Occupational Therapy Author Type: Occupational Therapist Type: Therapy (PT/OT/Speech/Resp) Filed: 09/03/2023 07:59 Note Text: OCCUPATIONAL THERAPY MISSED VISIT SERVICE DATE: 09/03/2023 SERVICE TIME: (P) 0759 ROOM: [place] [address] Patient not seen due to (P) Test / Procedure. OR today, will follow. SIGNATURE: LARRY Crocker/Gian PATIENT NAME: Trenton [place] DATE: September 03, 2023 TIME: 7:59 AM Normal [facility] XR HIP 2V AP/LAT RTon 2023 XR HIP 2V AP/LAT RT * * *Final Report* * * DATE OF EXAM: Sep 03 2023 1:16PM [facility] 5280 - XR HIP 2V AP/LAT RT [...] reduction internal fixation right intertrochanteric femur fracture. Prosthetics Lab Technician: GEORGE Transcribe Date/Time: Sep 03 2023 1:33P Dictated by : JIMY ROMERO MD This examination was interpreted and the report reviewed and electronically signed by: JIMY ROMERO MD on Sep 03 2023 1:34PM EST [id number] [facility] XR PELVIS 1V APon 09-03-2023 [...] internal fixation of right intertrochanteric femur fracture. Prosthetics Lab Technician: GEORGE Transcribe Date/Time: Sep 03 2023 2:42P Dictated by : JIMY ROMERO MD This examination was interpreted and the report reviewed and electronically signed by: JIMY ROMERO MD on Sep 03 2023 2:43PM EST [id number] [facility] ALLIED HEALTHon 09-02-2023 ALLIED HEALTH HNO ID: [id number] Author: TERE HORNER Chaplain Service: ? Author [...] contact the Spiritual Care Department: Please call [phone]. SIGNATURE: Chaplain Christiano PATIENT NAME: Trenton [place] DATE: September 02, 2023 TIME: 11:45 AM PAGER/CONTACT #: [phone] Normal [facility] Absolute lymphocyte countOrd ered By: Griselda Christina on 09-02-2023 Lymphocytes Auto (Unsp spec) [#/Vol] 1.79 10*3/uL 0.83-4.51 [facility] Activated partial thrombopla stin time (aPTT) in platelet poor plasma by coagulation aOrdered By: Griselda Christina on 09-02-2023 aPTT Coag (PPP) [Time] 25.5 s 24.1-36.2 [facility] Automated lymphocyte count a s percentage of total leukocytesOrdered By: Griselda Christina on 09-02-2023 Lymphocytes/100 WBC Auto (Unsp spec) 18.9 % 19-41 [facility] Basophil percentageOrdered B y: Griselda Christina on 09-02-2023 Basophils/100 WBC (Bld) 0.7 % 0-1 [facility] Chloride [Moles/Vol] 102 mmol/L 98-107 [facility] Eosinophils/100 WBC (Bld) 3.9 % 0-5 [facility] Glucose [Mass/Vol] 306 mg/dL 74-106 [facility] Comment on above: Glucose result great er than or equal to 200 mg/dLsuggests DIABETES MELLITUS per A.D.A. criteria. Hemoglobin (Bld) [Mass/Vol] 14.4 g/dL 12.0-15.0 [facility] Monocytes/100 WBC (Bld) 5.2 % 0-10 [facility] Neutrophils (Bld) [#/Vol] 6.5 10*3/uL 2.0-7.7 [facility] Neutrophils/100 WBC (Bld) 69.1 % 47-70 [facility] Potassium [Moles/Vol] 3.3 mmol/L 3.5-5.1 [facility] Sodium [Moles/Vol] 136 mmol/L 136-145 [facility] WBC (Bld) [#/Vol] 9.5 10*3/uL 4.4-11.0 [facility] CBC panel Auto (Bld)on 09-01 Erythrocyte distribution width (RBC) [Ratio] 13.6 % Normal 11.5-15.0 [facility] Comment on above: Order Comment: Speci men Type: BLOOD SPECIMEN Ordering Facility: [facility] Address: [address] [place] [address] Performed By: #### 2 4321-2 #### [facility] CLIA [id number] [address] OF [facility] Hematocrit (Bld) [Volume fraction] 42.9 % Normal 36.0-46.0 [facility] Comment on above: Order Comment: Speci men Type: BLOOD SPECIMEN Ordering Facility: [facility] Address: [address] [place] [address] Performed By: #### 2 4321-2 #### [facility] CLIA [id number] [address] [place] Hemoglobin (Bld) [Mass/Vol] 14.4 g/dL Normal 11.5-15.5 [facility] Comment on above: Order Comment: Speci men Type: BLOOD SPECIMEN Ordering Facility: [facility] Address: [address] [place] [address] Performed By: #### 2 4321-2 #### [facility] CLIA [id number] [address] MCH (RBC) [Entitic mass] 26.7 pg Normal 26.0-34.0 [facility] Comment on above: Order Comment: Speci men Type: BLOOD SPECIMEN Ordering Facility: [facility] Address: [address] [place] [address] Performed By: #### 2 4321-2 #### [facility] CLIA [id number] [address] [place] MCHC (RBC) [Mass/Vol] 33.6 g/dL Normal 30.5-36.0 [facility] Comment on above: Order Comment: Speci men Type: BLOOD SPECIMEN Ordering Facility: [facility] Address: [address] [place] [address] Performed By: #### 2 4321-2 #### [facility] CLIA [id number] [address] [place] MCV (RBC) [Entitic vol] 79.4 fL Low 80.0-100.0 [facility] Comment on above: Order Comment: Speci men Type: BLOOD SPECIMEN Ordering Facility: [facility] Address: [address] [place] [address] Performed By: #### 2 4321-2 #### [facility] CLIA [id number] [address] [place] Nucleated RBC (Bld) [#/Vol] 10*3/uL Normal <0.01 [facility] Comment on above: Order Comment: Speci men Type: BLOOD SPECIMEN Ordering Facility: [facility] Address: [address] [place] [address] Performed By: #### 2 4321-2 #### [facility] CLIA [id number] [address] Platelet mean volume (Bld) [Entitic vol] 9.2 fL Normal 9.0-12.7 [facility] Comment on above: Order Comment: Speci men Type: BLOOD SPECIMEN Ordering Facility: [facility] Address: [address] [place] [address] Performed By: #### 2 4321-2 #### [facility] CLIA [id number] [address] Platelets (Bld) [#/Vol] 172 10*3/uL Normal 150-400 [facility] Comment on above: Order Comment: Speci men Type: BLOOD SPECIMEN Ordering Facility: [facility] Address: [address] [place] [address] Performed By: #### 2 4321-2 #### [facility] CLIA [id number] [address] [place] RBC (Bld) [#/Vol] 5.40 10*6/uL High 3.90-5.20 [facility] Comment on above: Order Comment: Speci men Type: BLOOD SPECIMEN Ordering Facility: [facility] Address: [address] [place] [address] [place] [address] Performed By: #### 2 4321-2 #### [facility] CLIA [id number] [address] [place] [id number] [place] WBC (Bld) [#/Vol] 15.50 10*3/uL High 3.70-11.00 [facility] Comment on above: Order Comment: Speci men Type: BLOOD SPECIMEN Ordering Facility: [facility] Address: [address] [place] [address] Performed By: #### 2 4321-2 #### [facility] CLIA [id number] [address] [place] [id number] [facility] CONSULTon 09-02-2023 CONSULT HNO ID: [id number] Author: DIYA MAY MD Service: Orthopaedic Surgery [...] as a level II trauma activation to [facility] ED as a transfer from [facility] on 09/02/2023 for evaluation of right hip pain. The patient endorses a ground level fall in her bathroom with subsequent immediate and severe right hip pain and the inability to ambulate. She was brought to [facility] ED and was found to have a [...] (more content not included)... Normal [facility] CT ABD/PEL W IVCONon 024 CT ABD/PEL W IVCON * * *Final Report* * * DATE OF EXAM: Sep 02 2023 11:41AM [facility] 0530 - CT ABD/PEL W [...] and pelvis studies, the most recent 04/08/2019, [facility] pelvis and right hip radiographs 09/02/2023. RESULT: [...] thorax: A CT chest is reported separately. Cable Armorer (topogram) images: No additional findings. IMPRESSION: Right-sided [...] be communicated with the ordering provider via [employer] staff message or phone message by [employer] within 2 business days of report finalization. --END OF FINDING-- Prosthetics Lab Technician: GEORGE Transcribe Date/Time: Sep 02 2023 12:26P Dictated by : TORITO PARK MD This examination was interpreted and the report reviewed and electronically signed by: TORITO PARK MD on Sep 02 2023 1:00PM EST [id number] ACTIONABLE Invalid Interpretation Code [facility] CT BRAIN WO IVCONon 09-02-[address] BRAIN WO IVCON * * *Final Report* * * DATE OF EXAM: Sep 02 2023 11:39AM [facility] 0504 - CT BRAIN WO IVCON / PROCEDURE REASON: Head trauma, coagulopathy (Age 19-64y) * * * * Physician Interpretation * * * * EXAMINATION: CT CERVICAL SPINE WO IVCON, CT BRAIN WO IVCON CLINICAL HISTORY: Spine fracture, cervical, traumatic (accession [id number]), Head trauma, coagulopathy (Age 19-64y) (accession [id number]) TECHNIQUE: Serial axial images without IV contrast [...] sinuses and mastoid air cells are clear. Cable Armorer (topogram) images: Unremarkable. CERVICAL SPINE: Counting reference: Craniocervical junction. Anatomic Variants: None. Cable Armorer (topogram) images: Unremarkable. Alignment: Alignment is anatomic. [...] vertebrae with counting from the craniocervical junction. Prosthetics Lab Technician: PSCB Transcribe Date/Time: Sep 02 2023 11:52A Dictated by : RAYMUNDO MULLINS MD This examination was interpreted and the report reviewed and electronically signed by: RAYMUNDO MULLINS MD on Sep 02 2023 12:19PM EST [id number] Normal [facility] CT CERVICAL SPINE WO IVCONon 09-02-2023 CT CERVICAL SPINE WO IVCON * * *Final Report* * * DATE OF EXAM: Sep 02 2023 11:39AM [facility] 0505 - CT CERVICAL SPINE WO IVCON / PROCEDURE REASON: Spine fracture, cervical, traumatic * * * * Physician Interpretation * * * * EXAMINATION: CT CERVICAL SPINE WO IVCON, CT BRAIN WO IVCON CLINICAL HISTORY: Spine fracture, cervical, traumatic (accession [id number]), Head trauma, coagulopathy (Age 19-64y) (accession [id number]) TECHNIQUE: Serial axial images without IV contrast [...] sinuses and mastoid air cells are clear. Cable Armorer (topogram) images: Unremarkable. CERVICAL SPINE: Counting reference: Craniocervical junction. Anatomic Variants: None. Cable Armorer (topogram) images: Unremarkable. Alignment: Alignment is anatomic. [...] vertebrae with counting from the craniocervical junction. Prosthetics Lab Technician: PSCB Transcribe Date/Time: Sep 02 2023 11:52A Dictated by : RAYMUNDO MULLINS MD This examination was interpreted and the report reviewed and electronically signed by: RAYMUNDO MULLINS MD on Sep 02 2023 12:19PM EST [id number] Normal [facility] CT CHEST W IVCONon 4 CT CHEST W IVCON * * *Final Report* * * DATE OF EXAM: Sep 02 2023 11:41AM [facility] 0539 - CT CHEST W [...] abdomen: A CT abdomen is reported separately. Cable Armorer (topogram) images: No additional findings. IMPRESSION: Findings suggesting mild pulmonary edema. Similar small and mild prominent mediastinal and hilar lymph nodes considered likely reactive. Appropriate follow-up is recommended as indicated. Similar nodular densities seen in profile with the left major fissure. Small pericardial effusion. Stable left pericardial cyst. Prosthetics Lab Technician: GEORGE Transcribe Date/Time: Sep 02 2023 12:42P Dictated by : TORITO PARK MD This examination was interpreted and the report reviewed and electronically signed by: TORITO PARK MD on Sep 02 2023 1:00PM EST [id number] Normal [facility] Comprehensive metabolic 2000 panelon 09-02-2023 Albumin [Mass/Vol] 3.5 g/dL Low 3.9-4.9 [facility] Comment on above: Order Comment: Speci men Type: BLOOD SPECIMEN Ordering Facility: [facility] Address: [address] [place] [address] Performed By: #### 5 8410-2 #### [facility] CLIA [id number] [address] STATES OF [facility] ALP [Catalytic activity/Vol] 119 U/L Normal 34-123 [facility] Comment on above: Order Comment: Speci men Type: BLOOD SPECIMEN Ordering Facility: [facility] Address: [address] [place] [address] Performed By: #### 5 8410-2 #### [facility] CLIA [id number] [address] STATES OF [facility] ALT With P-5'-P [Catalytic activity/Vol] 20 U/L Normal 7-38 [facility] Comment on above: Order Comment: Speci men Type: BLOOD SPECIMEN Ordering Facility: [facility] Address: [address] [place] [address] Performed By: #### 5 8410-2 #### [facility] CLIA [id number] [address] STATES OF [facility] Anion gap [Moles/Vol] 13 mmol/L Normal 9-18 [facility] Comment on above: Order Comment: Speci men Type: BLOOD SPECIMEN Ordering Facility: [facility] Address: [address] [place] [address] Performed By: #### 5 8410-2 #### [facility] CLIA [id number] [address] [place] AST With P-5'-P [Catalytic activity/Vol] 21 U/L Normal 13-35 [facility] Comment on above: Order Comment: Speci men Type: BLOOD SPECIMEN Ordering Facility: [facility] Address: [address] [place] [address] Performed By: #### 5 8410-2 #### [facility] CLIA [id number] [address] [place] Bilirubin [Mass/Vol] 0.8 mg/dL Normal 0.2-1.3 [facility] Comment on above: Order Comment: Speci men Type: BLOOD SPECIMEN Ordering Facility: [facility] Address: [address] [place] [address] Performed By: #### 5 8410-2 #### [facility] CLIA [id number] [address] [place] Calcium [Mass/Vol] 9.0 mg/dL Normal 8.5-10.2 [facility] Comment on above: Order Comment: Speci men Type: BLOOD SPECIMEN Ordering Facility: [facility] Address: [address] [place] [address] Performed By: #### 5 8410-2 #### [facility] CLIA [id number] [address] [place] Chloride [Moles/Vol] 94 mmol/L Low 97-105 [facility] Comment on above: Order Comment: Speci men Type: BLOOD SPECIMEN Ordering Facility: [facility] Address: [address] [place] [address] Performed By: #### 5 8410-2 #### [facility] CLIA [id number] [address] [place] CO2 [Moles/Vol] 28 mmol/L Normal 22-30 [facility] Comment on above: Order Comment: Speci men Type: BLOOD SPECIMEN Ordering Facility: [facility] Address: [address] [place] [address] Performed By: #### 5 8410-2 #### [facility] CLIA [id number] [address] [place] Creatinine [Mass/Vol] 0.56 mg/dL Low 0.58-0.96 [facility] Comment on above: Order Comment: Speci men Type: BLOOD SPECIMEN Ordering Facility: [facility] Address: [address] [place] [address] Performed By: #### 5 8410-2 #### [facility] CLIA [id number] [address] [place] Creatinine and Glomerular filtration rate.predicted panel (S/P/Bld) 110 mL/min/1.73m??? Normal >=60 [facility] Comment on above: Order Comment: Radha tony Type: BLOOD SPECIMEN Ordering Facility: [facility] Address: [address] [place] [address] Result Comment: Crissy mated Glomerular Filtration Rate [...] GFR. Performed By: #### 5 8410-2 #### [facility] CLIA [id number] [address] [place] [address] [place] Glucose [Mass/Vol] 312 mg/dL High 74-99 [facility] Comment on above: Order Comment: Radha tony Type: BLOOD SPECIMEN Ordering Facility: [facility] Address: [address] [place] [address] Result Comment: The [place] Diabetes Association (ADA) provides guidance for cutoff [...] Standards of Medical Care in Diabetes 2016, [place] Diabetes Association. Diabetes Care. 2016.39(Suppl 1). Performed By: #### 5 8410-2 #### [facility] CLIA [id number] [address] [place] Potassium [Moles/Vol] 3.7 mmol/L Normal 3.7-5.1 [facility] Comment on above: Order Comment: Speci men Type: BLOOD SPECIMEN Ordering Facility: [facility] Address: [address] [place] [address] Performed By: #### 5 8410-2 #### [facility] CLIA [id number] [address] STATES OF [facility] Protein [Mass/Vol] 7.2 g/dL Normal 6.3-8.0 [facility] Comment on above: Order Comment: Speci men Type: BLOOD SPECIMEN Ordering Facility: [facility] Address: [address] [place] [address] Performed By: #### 5 8410-2 #### [facility] CLIA [id number] [address] Sodium [Moles/Vol] 135 mmol/L Low 136-144 [facility] Comment on above: Order Comment: Speci men Type: BLOOD SPECIMEN Ordering Facility: [facility] Address: [address] [place] [address] Performed By: #### 5 8410-2 #### [facility] CLIA [id number] [address] [facility] Urea nitrogen [Mass/Vol] 5 mg/dL Low 7-21 [facility] Comment on above: Order Comment: Speci men Type: BLOOD SPECIMEN Ordering Facility: [facility] Address: [address] [place] [address] Performed By: #### 5 8410-2 #### [facility] CLIA [id number] [address] Determination of erythrocyte mean corpuscular volume (MCV)Ordered By: Griselda Christina on 09-02-2023 MCV (RBC) [Entitic vol] 79.9 fL 81-99 [facility] ECG COMPLETEon 09-02-2023 ECG COMPLETE Ventricular Rate : 1 09 BPM Atrial Rate : 109 BPM P-R Interval : 168 ms QRS Duration : 128 ms Q-T Interval : 364 ms QTC Calculation(Bazett) : 490 ms Calculated P [place] : 46 degrees Calculated R [place] : -45 degrees Calculated T [place] : 97 degrees SINUS TACHYCARDIA POSSIBLE LEFT ATRIAL ENLARGEMENT LEFT AXIS DEVIATION LEFT VENTRICULAR HYPERTROPHY WITH QRS WIDENING ( Brian product ) CANNOT RULE OUT SEPTAL INFARCT , AGE UNDETERMINED T WAVE ABNORMALITY, CONSIDER LATERAL ISCHEMIA ABNORMAL ECG NO PREVIOUS ECGS AVAILABLE Confirmed by WELLINGTON SPANN ([id number]) on 02/27/2024 5:10:44 PM NAME : TRENTON JACKSON PID : [id number] : 1970 Gender : Female Race : ORD : [id number] Procedure Date : Sep 02 2023 12:10:42 Edit Date : Feb 27 2024 17:10:48 Diagnosis: SINUS TACHYCARDIA POSSIBLE LEFT ATRIAL ENLARGEMENT LEFT AXIS DEVIATION LEFT VENTRICULAR HYPERTROPHY WITH QRS WIDENING ( [place] product ) CANNOT RULE OUT SEPTAL INFARCT , AGE UNDETERMINED T WAVE ABNORMALITY, CONSIDER LATERAL ISCHEMIA ABNORMAL ECG NO PREVIOUS ECGS AVAILABLE Confirmed by WELLINGTON SPANN ([id number]) on 02/27/2024 5:10:44 PM Test Reason : Chest Pain Location : 4 : [facility] EM Overread By : WELLINGTON SPANN Edited By : WELLINGTON SPANN Referred By : , Acquired by : VIKTOR ART [facility] ED NOTEon 09-02-2023 ED NOTE HNO ID: [id number] Author: TESS LA RN Service: Emergency Medicine Author Type: Registered Nurse Type: ED Notes Filed: 09/02/2023 13:10 Note Text: Unable to obtain blood draw, MD aware. [facility] ED NOTE HNO ID: [id number] Author: TESS LA RN Service: Emergency Medicine Author Type: Registered Nurse Type: ED Notes Filed: 09/02/2023 12:53 Note Text: Resident aware of need for pain and nausea meds per pt request [facility] ED NOTE HNO ID: [id number] Author: TESS LA RN Service: Emergency Medicine Author Type: Registered Nurse Type: ED Notes Filed: 09/02/2023 12:19 Note Text: Trauma rns unable to obtain blood, US verified RN able to place US PIV at this time. [facility] ED NOTE HNO ID: [id number] Author: TESS LA RN Service: Emergency Medicine Author Type: Registered Nurse Type: ED Notes Filed: 09/02/2023 11:56 Note Text: Ortho MD at bedside [facility] ED NOTE HNO ID: [id number] Author: MILADIS ESPINOSA RN Service: ? Author Type: Registered Nurse Type: ED Notes Filed: 09/02/2023 11:38 Note Text: Bed: 19-ED Expected date: Expected time: Means of arrival: Comments: T2 [facility] ED NOTE HNO ID: [id number] Author: PENNIE MEDINA RN Service: Emergency Medicine Author Type: Registered Nurse Type: ED Notes Filed: 09/02/2023 11:22 Note Text: To CT [facility] ED NOTE HNO ID: [id number] Author: PENNIE MDEINA RN Service: Emergency Medicine Author Type: Registered Nurse Type: ED Notes Filed: 09/02/2023 11:22 Note Text: Blood bank and OR called [facility] Erythrocyte distribution wid th ratioOrdered By: Griselda Christina on 09-02-2023 Erythrocyte distribution width (RBC) [Ratio] 13.7 % 11.6-14.6 [facility] Erythrocyte distribution wid th standard deviationOrdered By: Griselda Christina on 09-02-2023 Erythrocyte distribution width (RBC) [Entitic vol] 39.7 fL 35.1-43.9 [facility] Ethanol SerPl-mCncon 024 Ethanol [Mass/Vol] mg/dL Normal <11 [facility] Comment on above: Order Comment: Speci men Type: BLOOD SPECIMEN Ordering Facility: [facility] Address: [address] [place] [address] Performed By: #### 5 8410-2 #### [facility] CLIA [id number] [address] STATES OF [facility] HCG QUAL BLDon 09-02-2023 HCG, QUALITATIVE Negative Normal Negative [facility] Comment on above: Order Comment: Speci men Type: BLOOD SPECIMEN Ordering Facility: [facility] Address: [address] [place] [address] Performed By: #### 2 4321-2 #### [facility] CLIA [id number] [address] HIGH SENSITIVITY TROPONIN T (INITIAL)on 09-02-2023 Troponin T.cardiac High sensitivity method [Mass/Vol] 40 ng/L High <12 [facility] Comment on above: Order Comment: Speci men Type: BLOOD SPECIMEN Ordering Facility: [facility] Address: [address] [place] [address] Result Comment: When assessing risk for acute [...] MACE. 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 Per EMS, patient feel on the wet bathroom and landed on her right hip. GCS at Scene was 15. On arrival, patient is moaning in pain. She is neurologically intact and HDS. She has obvious pain to the right hip. At [place], CXR and PXR showed chronic CHF and [...] (more content not included)... Normal [facility] Hematocrit Auto (Bld) [Volum e fraction]Ordered By: Griselda Christina on 09-02-2023 Hematocrit (Bld) [Volume fraction] 44.5 % 37-47 [facility] Immature granulocytes/100 WB C Auto (Bld)Ordered By: Griselda Christina on 09-02-2023 Immature granulocytes/100 WBC (Bld) 2.200 % 0.0-0.9 [facility] Comment on above: IG% - Immature Granu locytes (promyelocytes, myelocytes and metamyelocytes) > 1% indicates that a LEFT SHIFT is Present. Laboratory - Chemistry and C hemistry - challengeOrdered By: Griselda Christina on 09-02-2023 CO2 [Moles/Vol] 28.0 mmol/L 21.0-32.0 [facility] Urea nitrogen/Creatinine [Mass ratio] 6.6 mg/mg 10-20 [facility] Laboratory - CoagulationOrde red By: Griselda Christina on 09-02-2023 INR Coag (Bld) [Relative time] 0.9 {INR} [facility] PT Coag (PPP) [Time] 11.8 s 11.7-14.9 [facility] Laboratory - Hematology and Cell countsOrdered By: Griselda Christina on 09-02-2023 MCH (RBC) [Entitic mass] 25.9 pg 27.0-32.0 [facility] MCHC (RBC) [Mass/Vol] 32.4 g/dL 32-36 [facility] Nucleated RBC/100 WBC (Bld) [Ratio] 0 % 0-5 [facility] Platelet mean volume (Bld) [Entitic vol] 9.3 fL 6.2-12.0 [facility] Platelets (Bld) [#/Vol] 191 10*3/uL 150-450 [facility] Lipase SerPl-cCncon 09-02-19 24 Lipase [Catalytic activity/Vol] 17 U/L Normal 16-61 [facility] Comment on above: Order Comment: Speci men Type: BLOOD SPECIMEN Ordering Facility: [facility] Address: [address] [place] [address] Performed By: #### 5 8410-2 #### [facility] CLIA [id number] [address] [place] [address] [place] NT[facility]NP [facility] Natriuretic peptide.B prohormone N-Terminal [Mass/Vol] 4315 pg/mL High <125 [facility] Comment on above: Order Comment: Speci men Type: BLOOD SPECIMEN Ordering Facility: [facility] Address: [address] [place] [address] Performed By: #### 5 8410-2 #### [facility] CLIA [id number] [address] [place] NURSING PROGon 09-02-2023 NURSING PROG HNO ID: [id number] Author: DANI LAGOS, RN Service: Nursing Author Type: Registered Nurse Type: Nursing Progress Note Filed: 09/02/2023 14:35 Note Text: Other: Dr. Kingston made aware that second troponin unable to be obtained due to multiple sticks and IV unable to draw any blood. Normal [facility] No Panel InformationOrdered By: Griselda Christina on 09-02-2023 Estimated Creatinine Clearance Calc 97.60 ml/min [facility] Estimated GFR (MDRD) Amer 102 mL/min >60 [facility] Comment on above: GFR Calc Estimated GFR (MDRD) Non-Af Amer 85 mL/min >60 [facility] Comment on above: Non- GFR Calc PT panel Coag (PPP)on 2023 INR Coag (PPP) [Relative time] 1.0 {INR} Normal 0.9-1.3 [facility] Comment on above: Order Comment: Speci men Type: BLOOD SPECIMEN Ordering Facility: [facility] Address: [address] [place] [address] Result Comment: Charissa min K Antagonist (VKA) Therapeutic Range: INR 2 to 3 (Target INR of 2.5) Note: For patients treated with VKA drugs, such as warfarin, the [place] [employer] 2012 Guideline recommends [...] 70: 252-289 Performed By: #### 3 4528-0, 32779-2 #### [facility] CLIA [id number] [address] [place] [address] [place] PT Coag (PPP) [Time] 10.3 s Normal 9.7-13.0 [facility] Comment on above: Order Comment: Speci men Type: BLOOD SPECIMEN Ordering Facility: [facility] Address: [address] [place] [address] Performed By: #### 3 4528-0, 48725-8 #### [facility] CLIA [id number] [address] [place] [address] [place] RBC Auto (Bld) [#/Vol]Ordere d By: Griselda Christina on 09-02-2023 RBC (Bld) [#/Vol] 5.57 10*6/uL 4.2-5.4 [facility] Serum or plasma calcium xiomara urement (mass/volume)Ordered By: Griselda Christina on 09-02-2023 Calcium [Mass/Vol] 9.1 mg/dL 8.5-10.1 [facility] Serum or plasma creatinine m easurement (mass/volume)Ordered By: Griselda Christina on 09-02-2023 Creatinine [Mass/Vol] 0.76 mg/dL 0.55-1.02 [facility] Comment on above: The validity of the calculated GFR & GFRAA in patients over 70 years has not been determined. Clinical correlation is essential. Serum or plasma urea nitroge n measurement (mass/volume)Ordered By: Griselda Christina on 09-02-2023 Urea nitrogen [Mass/Vol] 5 mg/dL 7-18 [facility] TOX SCREEN ROUT URon 024 Amphetamines Confirm (U) [Mass/Vol] Negative Normal Negative [facility] Comment on above: Order Comment: Speci men Type: URINE SPECIMEN Ordering Facility: [facility] Address: [address] [place] [address] Result Comment: Cuto ff threshold at 1000 ng/mL. Performed By: #### U TOX2 #### [facility] CLIA [id number] [address] [place] BARBITURATES, URINE Negative Normal Negative [facility] Comment on above: Order Comment: Speci men Type: URINE SPECIMEN Ordering Facility: [facility] Address: [address] [place] [address] Result Comment: Cuto ff threshold at 200 ng/mL. Performed By: #### U TOX2 #### [facility] CLIA [id number] [address] [place] [address] [place] BENZODIAZEPINES, UR Negative Normal Negative [facility] Comment on above: Order Comment: Speci men Type: URINE SPECIMEN Ordering Facility: [facility] Address: [address] [place] [address] Result Comment: Cuto ff threshold at 200 ng/mL. Performed By: #### U TOX2 #### [facility] CLIA [id number] [address] OF [facility] Cannabinoids Screen Ql (U) Positive Abnormal Negative [facility] Comment on above: Order Comment: Speci men Type: URINE SPECIMEN Ordering Facility: [facility] Address: [address] [place] [address] Result Comment: Cuto ff threshold at 50 ng/mL. Performed By: #### U TOX2 #### [facility] CLIA [id number] [address] STATES OF [facility] Cocaine Ql (U) Negative Normal Negative [facility] Comment on above: Order Comment: Speci men Type: URINE SPECIMEN Ordering Facility: [facility] Address: [address] [place] [address] Result Comment: Cuto ff threshold at 300 ng/mL. Performed By: #### U TOX2 #### [facility] CLIA [id number] [address] [place] [address] [place] Ethanol (U) [Mass/Vol] <11 Normal <11 [facility] Comment on above: Order Comment: Speci men Type: URINE SPECIMEN Ordering Facility: [facility] Address: [address] [place] [address] Performed By: #### U TOX2 #### [facility] CLIA [id number] [address] [place] Opiates Screen Ql (U) Positive Abnormal Negative [facility] Comment on above: Order Comment: Speci men Type: URINE SPECIMEN Ordering Facility: [facility] Address: [address] [place] [address] Result Comment: Cuto ff threshold at 300 ng/mL. Performed By: #### U TOX2 #### [facility] CLIA [id number] [address] oxyCODONE cutoff Screen (U) [Mass/Vol] Negative Normal Negative [facility] Comment on above: Order Comment: Speci men Type: URINE SPECIMEN Ordering Facility: [facility] Address: [address] [place] [address] Result Comment: Cuto ff threshold at 100 ng/mL. Performed By: #### U TOX2 #### [facility] CLIA [id number] [address] Phencyclidine Ql (U) Negative Normal Negative [facility] Comment on above: Order Comment: Speci men Type: URINE SPECIMEN Ordering Facility: [facility] Address: [address] [place] [address] Result Comment: Cuto ff threshold at 25 ng/mL. Performed By: #### U TOX2 #### [facility] CLIA [id number] [address] TYPE + SCREENon 09-02-2023 ABO O Normal [facility] Comment on above: Order Comment: Speci men Type: BLOOD SPECIMEN Ordering Facility: [facility] Address: [address] [place] [address] Performed By: #### 5 8410-2 #### [facility] CLIA [id number] [address] HISTORICAL AB SCR STATUS Negative Normal [facility] Comment on above: Order Comment: Speci men Type: BLOOD SPECIMEN Ordering Facility: [facility] Address: [address] [place] [address] Performed By: #### 5 8410-2 #### [facility] CLIA [id number] [address] [place] Rh Nom (Bld) Positive Normal [facility] Comment on above: Order Comment: Speci men Type: BLOOD SPECIMEN Ordering Facility: [facility] Address: [address] [place] [address] Performed By: #### 5 8410-2 #### [facility] CLIA [id number] [address] OF [facility] TYPE AND SCREEN EXPIRATION 09/05/2023 23:59 Normal [facility] Comment on above: Order Comment: Speci men Type: BLOOD SPECIMEN Ordering Facility: [facility] Address: [address] [place] [address] Performed By: #### 5 8410-2 #### [facility] CLIA [id number] [address] Thin prep Papanicolaou smear with manual screeningOrdered By: Griselda Christina on 09-02-2023 Thin prep Papanicolaou smear with manual screening 6 15 [facility] Urinalysis complete panel (U )on 09-02-2023 Bacteria LM.HPF (Urine sed) [#/Area] Rare Abnormal None Seen [facility] Comment on above: Order Comment: Speci men Type: URINE SPECIMEN Ordering Facility: [facility] Address: [address] [place] [address] Performed By: #### 2 4356-8 #### [facility] CLIA [id number] [address] OF [facility] Bilirubin Ql (U) Negative Normal Negative [facility] Comment on above: Order Comment: Speci men Type: URINE SPECIMEN Ordering Facility: [facility] Address: [address] [place] [address] Performed By: #### 2 4356-8 #### [facility] CLIA [id number] [address] Clarity (Unsp spec) Clear Normal Clear [facility] Comment on above: Order Comment: Speci men Type: URINE SPECIMEN Ordering Facility: [facility] Address: [address] [place] [address] Performed By: #### 2 4356-8 #### [facility] CLIA [id number] [address] [facility] Color (U) Light Yellow Normal yellow [facility] Comment on above: Order Comment: Speci men Type: URINE SPECIMEN Ordering Facility: [facility] Address: [address] [place] [address] Performed By: #### 2 4356-8 #### [facility] CLIA [id number] [address] [facility] Glucose Test strip (U) [Mass/Vol] 4+ Abnormal Trace, Negative [facility] Comment on above: Order Comment: Speci men Type: URINE SPECIMEN Ordering Facility: [facility] Address: [address] [place] [address] Performed By: #### 2 4356-8 #### [facility] CLIA [id number] [address] Hemoglobin Ql (U) 3+ Abnormal Negative, Trace [facility] Comment on above: Order Comment: Speci men Type: URINE SPECIMEN Ordering Facility: [facility] Address: [address] [place] [address] Performed By: #### 2 4356-8 #### [facility] CLIA [id number] [address] Ketones Ql (U) Negative Normal Negative, Trace [facility] Comment on above: Order Comment: Speci men Type: URINE SPECIMEN Ordering Facility: [facility] Address: [address] [place] [address] Performed By: #### 2 4356-8 #### [facility] CLIA [id number] [address] Leukocyte esterase Test strip Ql (U) Negative Normal Negative, 25 Jennifer/uL [facility] Comment on above: Order Comment: Speci men Type: URINE SPECIMEN Ordering Facility: [facility] Address: [address] [place] [address] Performed By: #### 2 4356-8 #### [facility] CLIA [id number] [address] Nitrite Ql (U) Negative Normal Negative [facility] Comment on above: Order Comment: Speci men Type: URINE SPECIMEN Ordering Facility: [facility] Address: [address] [place] [address] Performed By: #### 2 4356-8 #### [facility] CLIA [id number] [address] pH (U) 6.5 [pH] Normal 5.0-8.0 [facility] Comment on above: Order Comment: Speci men Type: URINE SPECIMEN Ordering Facility: [facility] Address: [address] [place] [address] Performed By: #### 2 4356-8 #### [facility] CLIA [id number] [address] Protein (U) [Mass/Vol] 2+ Abnormal Trace , Negative [facility] Comment on above: Order Comment: Speci men Type: URINE SPECIMEN Ordering Facility: [facility] Address: [address] [place] [address] Performed By: #### 2 4356-8 #### [facility] CLIA [id number] [address] RBC LM.HPF (Urine sed) [#/Area] /[HPF] Abnormal 0-3 /HPF [facility] Comment on above: Order Comment: Speci men Type: URINE SPECIMEN Ordering Facility: [facility] Address: [address] [place] [address] Performed By: #### 2 4356-8 #### [facility] CLIA [id number] [address] Specific gravity (U) [Rel density] >1.040 High 1.005-1.03 0 [facility] Comment on above: Order Comment: Speci men Type: URINE SPECIMEN Ordering Facility: [facility] Address: [address] [place] [address] Performed By: #### 2 4356-8 #### [facility] CLIA [id number] [address] Urobilinogen Ql (U) Normal Normal Normal [facility] Comment on above: Order Comment: Speci men Type: URINE SPECIMEN Ordering Facility: [facility] Address: [address] [place] [address] Performed By: #### 2 4356-8 #### [facility] CLIA [id number] [address] WBC LM.HPF (Urine sed) [#/Area] 0-5 /HPF Normal 0-5 /HPF [facility] Comment on above: Order Comment: Speci men Type: URINE SPECIMEN Ordering Facility: [facility] Address: [address] [place] [address] Performed By: #### 2 4356-8 #### [facility] CLIA [id number] [address] [facility] XR FEMUR 2V AP/LAT RTon 08-04 [...] angulated intratrochanteric fracture of the right hip Prosthetics Lab Technician: GEORGE Transcribe Date/Time: Sep 02 2023 5:30P Dictated by : MEKA TAYLOR MD This examination was interpreted and the report reviewed and electronically signed by: MEKA TAYLOR MD on Sep 02 2023 5:32PM EST [id number] Normal [facility] aPTT PPPon 09-02-2023 aPTT Coag (PPP) [Time] 26.2 s Normal 23.0-32.4 [facility] Comment on above: Order Comment: Speci men Type: BLOOD SPECIMEN Ordering Facility: [facility] Address: [address] [place] [address] Performed By: #### 3 4528-0, 39475-3 #### [facility] CLIA [id number] [address] [place] [id number] [facility] Absolute lymphocyte countOrd ered By: Ananda Coyle on 06-19-2023 Lymphocytes Auto (Unsp spec) [#/Vol] 0.91 10*3/uL 0.83-4.51 [facility] Automated lymphocyte count a s percentage of total leukocytesOrdered By: Ananda Coyle on 06-19-2023 Lymphocytes/100 WBC Auto (Unsp spec) 8.1 % 19-41 [facility] Basophil percentageOrdered B y: Ananda Coyle on 06-19-2023 Basophils/100 WBC (Bld) 0.7 % 0-1 [facility] Chloride [Moles/Vol] 102 mmol/L 98-107 [facility] Eosinophils/100 WBC (Bld) 1.2 % 0-5 [facility] Glucose [Mass/Vol] 205 mg/dL 74-106 [facility] Comment on above: Glucose result great er than or equal to 200 mg/dLsuggests DIABETES MELLITUS per A.D.A. criteria. Hemoglobin (Bld) [Mass/Vol] 13.6 g/dL 12.0-15.0 [facility] Monocytes/100 WBC (Bld) 3.2 % 0-10 [facility] Neutrophils (Bld) [#/Vol] 9.7 10*3/uL 2.0-7.7 [facility] Neutrophils/100 WBC (Bld) 86.3 % 47-70 [facility] Potassium [Moles/Vol] 4.2 mmol/L 3.5-5.1 [facility] Sodium [Moles/Vol] 137 mmol/L 136-145 [facility] WBC (Bld) [#/Vol] 11.2 10*3/uL 4.4-11.0 [facility] Determination of erythrocyte mean corpuscular volume (MCV)Ordered By: Ananda Coyle on 06-19-2023 MCV (RBC) [Entitic vol] 81.2 fL 81-99 [facility] Erythrocyte distribution wid th ratioOrdered By: Ananda Coyle on 06-19-2023 Erythrocyte distribution width (RBC) [Ratio] 14.6 % 11.6-14.6 [facility] Erythrocyte distribution wid th standard deviationOrdered By: Ananda Coyle on 06-19-2023 Erythrocyte distribution width (RBC) [Entitic vol] 42.7 fL 35.1-43.9 [facility] Hematocrit Auto (Bld) [Volum e fraction]Ordered By: Ananda Coyle on 06-19-2023 Hematocrit (Bld) [Volume fraction] 42.7 % 37-47 [facility] Immature granulocytes/100 WB C Auto (Bld)Ordered By: Ananda Coyle on 06-19-2023 Immature granulocytes/100 WBC (Bld) 0.500 % 0.0-0.9 [facility] Comment on above: IG% - Immature Granu locytes (promyelocytes, myelocytes and metamyelocytes) > 1% indicates that a LEFT SHIFT is Present. Laboratory - Chemistry and C hemistry - challengeOrdered By: Ananda Coyle on 06-19-2023 CO2 [Moles/Vol] 27.0 mmol/L 21.0-32.0 [facility] Urea nitrogen/Creatinine [Mass ratio] 16.5 mg/mg 10-20 [facility] Laboratory - Hematology and Cell countsOrdered By: Ananda Coyle on 06-19-2023 MCH (RBC) [Entitic mass] 25.9 pg 27.0-32.0 [facility] MCHC (RBC) [Mass/Vol] 31.9 g/dL 32-36 [facility] Nucleated RBC/100 WBC (Bld) [Ratio] 0 % 0-5 [facility] Platelets (Bld) [#/Vol] 214 10*3/uL 150-450 [facility] No Panel InformationOrdered By: Ananda Coyle on 06-19-2023 Estimated Creatinine Clearance Calc 83.12 ml/min [facility] Estimated GFR (MDRD) Amer 91 mL/min >60 [facility] Comment on above: GFR Calc Estimated GFR (MDRD) Non-Af Amer 75 mL/min >60 [facility] Comment on above: Non- GFR Calc Platelet mean volume Marco-Ec ker (Bld) [Entitic vol]Ordered By: Ananda Coyle on 06-19-2023 Platelet mean volume (Bld) [Entitic vol] 9.9 fL 6.2-12.0 [facility] RBC Auto (Bld) [#/Vol]Ordere d By: Ananda Coyle on 06-19-2023 RBC (Bld) [#/Vol] 5.26 10*6/uL 4.2-5.4 [facility] Serum or plasma calcium xiomara urement (mass/volume)Ordered By: Ananda Coyle on 06-19-2023 Calcium [Mass/Vol] 9.6 mg/dL 8.5-10.1 [facility] Serum or plasma creatinine m easurement (mass/volume)Ordered By: Ananda Coyle on 06-19-2023 Creatinine [Mass/Vol] 0.85 mg/dL 0.55-1.02 [facility] Comment on above: The validity of the calculated GFR & GFRAA in patients over 70 years has not been determined. Clinical correlation is essential. Serum or plasma urea nitroge n measurement (mass/volume)Ordered By: Ananda Coyle on 06-19-2023 Urea nitrogen [Mass/Vol] 14 mg/dL 7-18 [facility] Thin prep Papanicolaou smear with manual screeningOrdered By: Ananda Coyle on 06-19-2023 Thin prep Papanicolaou smear with manual screening 8 5-15 [facility] Basophil percentageOrdered B y: Jeremy Alexander on 06-16-2023 Chloride [Moles/Vol] 105 mmol/L 98-107 [facility] Glucose [Mass/Vol] 65 mg/dL 74-106 [facility] Potassium [Moles/Vol] 3.7 mmol/L 3.5-5.1 [facility] Sodium [Moles/Vol] 139 mmol/L 136-145 [facility] Glucose Glucometer (BldC) [M ass/Vol]Ordered By: Jeremy Alexander on 06-16-2023 Glucose [Mass/Vol] 161 mg/dL 74-106 [facility] Comment on above: MANAGEMENT OF PATIEN T CARE PER NURSING PROTOCOL Laboratory - Chemistry and C hemistry - challengeOrdered By: Jeremy Alexander on 06-16-2023 CO2 [Moles/Vol] 27.0 mmol/L 21.0-32.0 [facility] Urea nitrogen/Creatinine [Mass ratio] 20.9 mg/mg 10-20 [facility] No Panel InformationOrdered By: Jeremy Alexander on 06-16-2023 Estimated Creatinine Clearance Calc 107.78 ml/min [facility] Estimated GFR (MDRD) Amer 119 mL/min >60 [facility] Comment on above: GFR Calc Estimated GFR (MDRD) Non-Af Amer 98 mL/min >60 [facility] Comment on above: Non- GFR Calc Serum or plasma calcium xiomara urement (mass/volume)Ordered By: Jeremy Alexander on 06-16-2023 Calcium [Mass/Vol] 8.9 mg/dL 8.5-10.1 [facility] Serum or plasma creatinine m easurement (mass/volume)Ordered By: Jeremy Alexander on 06-16-2023 Creatinine [Mass/Vol] 0.67 mg/dL 0.55-1.02 [facility] Comment on above: The validity of the calculated GFR & GFRAA in patients over 70 years has not been determined. Clinical correlation is essential. Serum or plasma urea nitroge n measurement (mass/volume)Ordered By: Jeremy Alexander on 06-16-2023 Urea nitrogen [Mass/Vol] 14 mg/dL 7-18 [facility] Thin prep Papanicolaou smear with manual screeningOrdered By: Jeremy Alexander on 06-16-2023 Thin prep Papanicolaou smear with manual screening 7 5-15 [facility] Absolute lymphocyte countOrd ered By: Jeremy Alexander on 06-15-2023 Lymphocytes Auto (Unsp spec) [#/Vol] 1.49 10*3/uL 0.83-4.51 [facility] Basophil percentageOrdered B y: Jeremy Alexander on 06-15-2023 Basophil percentage 4.9 mg/dL 2.5-4.9 [facility] Basophils/100 WBC (Bld) 0.8 % 0-1 [facility] Eosinophils/100 WBC (Bld) 5.7 % 0-5 [facility] Neutrophils (Bld) [#/Vol] 4.0 10*3/uL 2.0-7.7 [facility] Neutrophils/100 WBC (Bld) 61.2 % 47-70 [facility] WBC (Bld) [#/Vol] 6.5 10*3/uL 4.4-11.0 [facility] Blood erythrocytes count (nu mber/volume)Ordered By: Jeremy Alexander on 06-15-2023 RBC (Bld) [#/Vol] 4.70 10*6/uL 4.2-5.4 [facility] Blood hemoglobin measurement (mass/volume)Ordered By: Jeremy Alexander on 06-15-2023 Hemoglobin (Bld) [Mass/Vol] 12.0 g/dL 12.0-15.0 [facility] Blood lymphocytes/100 leukoc ytesOrdered By: Jeremy Alexander on 06-15-2023 Lymphocytes/100 WBC (Bld) 22.9 % 19-41 [facility] Blood monocytes/100 leukocyt esOrdered By: Jeremy Alexander on 06-15-2023 Monocytes/100 WBC (Bld) 8.9 % 0-10 [facility] Blood platelet mean volumeOr dered By: Jeremy Alexander on 06-15-2023 Platelet mean volume (Bld) [Entitic vol] 10.2 fL 6.2-12.0 [facility] Determination of erythrocyte mean corpuscular volume (MCV)Ordered By: Jeremy Alexander on 06-15-2023 MCV (RBC) [Entitic vol] 81.9 fL 81-99 [facility] Hematocrit Auto (Bld) [Volum e fraction]Ordered By: Jeremy Alexander on 06-15-2023 Hematocrit (Bld) [Volume fraction] 38.5 % 37-47 [facility] Laboratory - Chemistry and C hemistry - challengeOrdered By: Jeremy Alexander on 06-15-2023 Magnesium [Mass/Vol] 2.1 mg/dL 1.6-2.6 [facility] Laboratory - Hematology and Cell countsOrdered By: Jeremy Alexander on 06-15-2023 Erythrocyte distribution width (RBC) [Entitic vol] 41.6 fL 35.1-43.9 [facility] Erythrocyte distribution width (RBC) [Ratio] 14.1 % 11.6-14.6 [facility] Immature granulocytes/100 WBC (Bld) 0.500 % 0.0-0.9 [facility] Comment on above: IG% - Immature Granu locytes (promyelocytes, myelocytes and metamyelocytes) > 1% indicates that a LEFT SHIFT is Present. MCH (RBC) [Entitic mass] 25.5 pg 27.0-32.0 [facility] Nucleated RBC/100 WBC (Bld) [Ratio] 0 % 0-5 [facility] MCHC Auto (RBC) [Mass/Vol]Or dered By: Jeremy Alexander on 06-15-2023 MCHC (RBC) [Mass/Vol] 31.2 g/dL 32-36 [facility] No Panel InformationOrdered By: Jeremy Alexander on 06-15-2023 Troponin I High Sensitivity 17 pg/mL 3.0-54.0 [facility] Comment on above: Please Note: New Junie t Units and Gender Specific Reference Ranges. For more information see Policy Stat Procedure [facility] High Sensitivity Troponin (TNIH) and attachments. Platelets bldOrdered By: Kenia Alexander on 06-15-2023 Platelets (Bld) [#/Vol] 201 10*3/uL 150-450 [facility] Absolute lymphocyte countOrd ered By: Riccardo Hillman on 06-12-2023 Lymphocytes Auto (Unsp spec) [#/Vol] 1.61 10*3/uL 0.83-4.51 [facility] Basophil percentageOrdered B y: Riccardo Hillman on 06-12-2023 Basophils/100 WBC (Bld) 1.0 % 0-1 [facility] Chloride [Moles/Vol] 103 mmol/L 98-107 [facility] Eosinophils/100 WBC (Bld) 3.9 % 0-5 [facility] Glucose [Mass/Vol] 272 mg/dL 74-106 [facility] Comment on above: Glucose result great er than or equal to 200 mg/dLsuggests DIABETES MELLITUS per A.D.A. criteria. Neutrophils (Bld) [#/Vol] 5.5 10*3/uL 2.0-7.7 [facility] Neutrophils/100 WBC (Bld) 68.5 % 47-70 [facility] Potassium [Moles/Vol] 4.0 mmol/L 3.5-5.1 [facility] Comment on above: Moderate Hemolysis, Result may be falsely increased. Sodium [Moles/Vol] 136 mmol/L 136-145 [facility] WBC (Bld) [#/Vol] 8.0 10*3/uL 4.4-11.0 [facility] Blood erythrocytes count (nu mber/volume)Ordered By: Riccardo Hillman on 06-12-2023 RBC (Bld) [#/Vol] 4.92 10*6/uL 4.2-5.4 [facility] Blood hemoglobin measurement (mass/volume)Ordered By: Riccardo Hillman on 06-12-2023 Hemoglobin (Bld) [Mass/Vol] 12.7 g/dL 12.0-15.0 [facility] Blood lymphocytes/100 leukoc ytesOrdered By: Riccardo Hillman on 06-12-2023 Lymphocytes/100 WBC (Bld) 20.3 % 19-41 [facility] Blood manual differential co mment interpretation (narrative result)Ordered By: Riccardo Hillman on 06-12-2023 Manual differential comment Main (Bld) [Interp] SCANNED [facility] Comment on above: AUTO DIFF OK Blood monocytes/100 leukocyt esOrdered By: Riccardo Hillman on 06-12-2023 Monocytes/100 WBC (Bld) 6.0 % 0-10 [facility] Blood platelet mean volumeOr dered By: Riccardo Hillman on 06-12-2023 Platelet mean volume (Bld) [Entitic vol] 11.3 fL 6.2-12.0 [facility] Determination of erythrocyte mean corpuscular volume (MCV)Ordered By: Riccardo Hillman on 06-12-2023 MCV (RBC) [Entitic vol] 81.3 fL 81-99 [facility] Hematocrit Auto (Bld) [Volum e fraction]Ordered By: Riccardo Hillman on 06-12-2023 Hematocrit (Bld) [Volume fraction] 40.0 % 37-47 [facility] INR in Blood by Coagulation assayOrdered By: Riccardo Hillman on 06-12-2023 INR Coag (Bld) [Relative time] 1.0 {INR} [facility] Laboratory - Chemistry and C hemistry - challengeOrdered By: Riccardo Hillman on 06-12-2023 CO2 [Moles/Vol] 27.0 mmol/L 21.0-32.0 [facility] Natriuretic peptide B (Bld) [Mass/Vol] 596.3 pg/mL 0-100 [facility] Urea nitrogen/Creatinine [Mass ratio] 12.0 mg/mg 10-20 [facility] Laboratory - CoagulationOrde red By: Riccardo Hillman on 06-12-2023 aPTT Coag (Bld) [Time] 27.5 s 24.1-36.2 [facility] PT Coag (PPP) [Time] 12.7 s 11.7-14.9 [facility] Laboratory - Hematology and Cell countsOrdered By: Riccardo Hillman on 06-12-2023 Erythrocyte distribution width (RBC) [Entitic vol] 41.9 fL 35.1-43.9 [facility] Erythrocyte distribution width (RBC) [Ratio] 14.4 % 11.6-14.6 [facility] Immature granulocytes/100 WBC (Bld) 0.300 % 0.0-0.9 [facility] Comment on above: IG% - Immature Granu locytes (promyelocytes, myelocytes and metamyelocytes) > 1% indicates that a LEFT SHIFT is Present. MCH (RBC) [Entitic mass] 25.8 pg 27.0-32.0 [facility] Nucleated RBC/100 WBC (Bld) [Ratio] 0 % 0-5 [facility] MCHC Auto (RBC) [Mass/Vol]Or dered By: Riccardo Hillman on 06-12-2023 MCHC (RBC) [Mass/Vol] 31.8 g/dL 32-36 [facility] No Panel InformationOrdered By: Riccardo Hillman on 06-12-2023 Estimated Creatinine Clearance Calc 140.88 ml/min [facility] Estimated GFR (MDRD) Amer 105 mL/min >60 [facility] Comment on above: GFR Calc Estimated GFR (MDRD) Non-Af Amer 86 mL/min >60 [facility] Comment on above: Non- GFR Calc Troponin I High Sensitivity 22 pg/mL 3.0-54.0 [facility] Comment on above: Please Note: New Junie t Units and Gender Specific Reference Ranges. For more information see Policy Stat Procedure [facility] High Sensitivity Troponin (TNIH) and attachments. Platelets bldOrdered By: Guerita Hillman on 06-12-2023 Platelets (Bld) [#/Vol] 150 10*3/uL 150-450 [facility] Serum or plasma calcium xiomara urement (mass/volume)Ordered By: Riccardo Hillman on 06-12-2023 Calcium [Mass/Vol] 9.1 mg/dL 8.5-10.1 [facility] Serum or plasma creatinine m easurement (mass/volume)Ordered By: Riccardo Hillman on 06-12-2023 Creatinine [Mass/Vol] 0.75 mg/dL 0.55-1.02 [facility] Comment on above: The validity of the calculated GFR & GFRAA in patients over 70 years has not been determined. Clinical correlation is essential. Serum or plasma urea nitroge n measurement (mass/volume)Ordered By: Riccardo Hillman on 06-12-2023 Urea nitrogen [Mass/Vol] 9 mg/dL 7-18 [facility] Thin prep Papanicolaou smear with manual screeningOrdered By: Riccardo Hillman on 06-12-2023 Thin prep Papanicolaou smear with manual screening 6 5-15 [facility] Absolute lymphocyte countOrd ered By: Ananda Coyle on 05-26-2023 Lymphocytes Auto (Unsp spec) [#/Vol] 1.00 10*3/uL 0.83-4.51 [facility] Basophil percentageOrdered B y: Ananda Coyle on 05-26-2023 Basophils/100 WBC (Bld) 0.8 % 0-1 [facility] Chloride [Moles/Vol] 103 mmol/L 98-107 [facility] Eosinophils/100 WBC (Bld) 1.3 % 0-5 [facility] Glucose [Mass/Vol] 247 mg/dL 74-106 [facility] Comment on above: Glucose result great er than or equal to 200 mg/dLsuggests DIABETES MELLITUS per A.D.A. criteria. Neutrophils (Bld) [#/Vol] 7.5 10*3/uL 2.0-7.7 [facility] Neutrophils/100 WBC (Bld) 82.1 % 47-70 [facility] Potassium [Moles/Vol] 3.2 mmol/L 3.5-5.1 [facility] Sodium [Moles/Vol] 139 mmol/L 136-145 [facility] WBC (Bld) [#/Vol] 9.1 10*3/uL 4.4-11.0 [facility] Blood erythrocytes count (nu mber/volume)Ordered By: Ananda Coyle on 05-26-2023 RBC (Bld) [#/Vol] 5.34 10*6/uL 4.2-5.4 [facility] Blood hemoglobin measurement (mass/volume)Ordered By: Ananda Coyle on 05-26-2023 Hemoglobin (Bld) [Mass/Vol] 13.9 g/dL 12.0-15.0 [facility] Blood lymphocytes/100 leukoc ytesOrdered By: Ananda Coyle on 05-26-2023 Lymphocytes/100 WBC (Bld) 11.0 % 19-41 [facility] Blood monocytes/100 leukocyt esOrdered By: Ananda Coyle on 05-26-2023 Monocytes/100 WBC (Bld) 4.5 % 0-10 [facility] Blood platelet mean volumeOr dered By: Ananda Coyle on 05-26-2023 Platelet mean volume (Bld) [Entitic vol] 9.8 fL 6.2-12.0 [facility] Determination of erythrocyte mean corpuscular volume (MCV)Ordered By: Ananda Coyle on 05-26-2023 MCV (RBC) [Entitic vol] 82.0 fL 81-99 [facility] Hematocrit Auto (Bld) [Volum e fraction]Ordered By: Ananda Coyle on 05-26-2023 Hematocrit (Bld) [Volume fraction] 43.8 % 37-47 [facility] Laboratory - Chemistry and C hemistry - challengeOrdered By: Ananda Coyle on 05-26-2023 CO2 [Moles/Vol] 31.0 mmol/L 21.0-32.0 [facility] Urea nitrogen/Creatinine [Mass ratio] 7.3 mg/mg 10-20 [facility] Laboratory - Hematology and Cell countsOrdered By: Ananda Coyle on 05-26-2023 Erythrocyte distribution width (RBC) [Entitic vol] 42.0 fL 35.1-43.9 [facility] Erythrocyte distribution width (RBC) [Ratio] 14.4 % 11.6-14.6 [facility] Immature granulocytes/100 WBC (Bld) 0.300 % 0.0-0.9 [facility] Comment on above: IG% - Immature Granu locytes (promyelocytes, myelocytes and metamyelocytes) > 1% indicates that a LEFT SHIFT is Present. MCH (RBC) [Entitic mass] 26.0 pg 27.0-32.0 [facility] Nucleated RBC/100 WBC (Bld) [Ratio] 0 % 0-5 [facility] MCHC Auto (RBC) [Mass/Vol]Or dered By: Ananda Coyle on 05-26-2023 MCHC (RBC) [Mass/Vol] 31.7 g/dL 32-36 [facility] No Panel InformationOrdered By: Ananda Coyle on 05-26-2023 Estimated Creatinine Clearance Calc 95.18 ml/min [facility] Estimated GFR (MDRD) Amer 116 mL/min >60 [facility] Comment on above: GFR Calc Estimated GFR (MDRD) Non-Af Amer 96 mL/min >60 [facility] Comment on above: Non- GFR Calc Platelets bldOrdered By: Andrew Coyle on 05-26-2023 Platelets (Bld) [#/Vol] 220 10*3/uL 150-450 [facility] Serum or plasma calcium xiomara urement (mass/volume)Ordered By: Ananda Coyle on 05-26-2023 Calcium [Mass/Vol] 9.1 mg/dL 8.5-10.1 [facility] Serum or plasma creatinine m easurement (mass/volume)Ordered By: Ananda Coyle on 05-26-2023 Creatinine [Mass/Vol] 0.68 mg/dL 0.55-1.02 [facility] Comment on above: The validity of the calculated GFR & GFRAA in patients over 70 years has not been determined. Clinical correlation is essential. Serum or plasma urea nitroge n measurement (mass/volume)Ordered By: Ananda Coyle on 05-26-2023 Urea nitrogen [Mass/Vol] 5 mg/dL 7-18 [facility] Thin prep Papanicolaou smear with manual screeningOrdered By: Ananda Coyle on 05-26-2023 Thin prep Papanicolaou smear with manual screening 5 5-15 [facility] Absolute lymphocyte countOrd ered By: Vidal Solorio on 05-22-2023 Lymphocytes Auto (Unsp spec) [#/Vol] 1.25 10*3/uL 0.83-4.51 [facility] Basophil percentageOrdered B y: Vidal Solorio on 05-22-2023 Basophils/100 WBC (Bld) 0.7 % 0-1 [facility] Chloride [Moles/Vol] 102 mmol/L 98-107 [facility] Eosinophils/100 WBC (Bld) 2.0 % 0-5 [facility] Glucose [Mass/Vol] 323 mg/dL 74-106 [facility] Comment on above: Glucose result great er than or equal to 200 mg/dLsuggests DIABETES MELLITUS per A.D.A. criteria. Neutrophils (Bld) [#/Vol] 6.3 10*3/uL 2.0-7.7 [facility] Neutrophils/100 WBC (Bld) 76.7 % 47-70 [facility] Potassium [Moles/Vol] 3.9 mmol/L 3.5-5.1 [facility] Sodium [Moles/Vol] 136 mmol/L 136-145 [facility] WBC (Bld) [#/Vol] 8.1 10*3/uL 4.4-11.0 [facility] Blood erythrocytes count (nu mber/volume)Ordered By: Vidal Solorio on 05-22-2023 RBC (Bld) [#/Vol] 4.97 10*6/uL 4.2-5.4 [facility] Blood hemoglobin measurement (mass/volume)Ordered By: Vidal Solorio on 05-22-2023 Hemoglobin (Bld) [Mass/Vol] 12.9 g/dL 12.0-15.0 [facility] Blood lymphocytes/100 leukoc ytesOrdered By: Vidal Solorio on 05-22-2023 Lymphocytes/100 WBC (Bld) 15.4 % 19-41 [facility] Blood monocytes/100 leukocyt esOrdered By: Vidal Solorio on 05-22-2023 Monocytes/100 WBC (Bld) 4.8 % 0-10 [facility] Blood platelet mean volumeOr dered By: Vidal Solorio on 05-22-2023 Platelet mean volume (Bld) [Entitic vol] 10.6 fL 6.2-12.0 [facility] Determination of erythrocyte mean corpuscular volume (MCV)Ordered By: Vidal Solorio on 05-22-2023 MCV (RBC) [Entitic vol] 82.1 fL 81-99 [facility] Hematocrit Auto (Bld) [Volum e fraction]Ordered By: Vidal Solorio on 05-22-2023 Hematocrit (Bld) [Volume fraction] 40.8 % 37-47 [facility] Laboratory - Chemistry and C hemistry - challengeOrdered By: Vidal Solorio on 05-22-2023 CO2 [Moles/Vol] 30.0 mmol/L 21.0-32.0 [facility] Urea nitrogen/Creatinine [Mass ratio] 11.6 mg/mg 10-20 [facility] Laboratory - Hematology and Cell countsOrdered By: Vidal Solorio on 05-22-2023 Erythrocyte distribution width (RBC) [Entitic vol] 41.3 fL 35.1-43.9 [facility] Erythrocyte distribution width (RBC) [Ratio] 14.1 % 11.6-14.6 [facility] Immature granulocytes/100 WBC (Bld) 0.400 % 0.0-0.9 [facility] Comment on above: IG% - Immature Granu locytes (promyelocytes, myelocytes and metamyelocytes) > 1% indicates that a LEFT SHIFT is Present. MCH (RBC) [Entitic mass] 26.0 pg 27.0-32.0 [facility] Nucleated RBC/100 WBC (Bld) [Ratio] 0 % 0-5 [facility] MCHC Auto (RBC) [Mass/Vol]Or dered By: Vidal Solorio on 05-22-2023 MCHC (RBC) [Mass/Vol] 31.6 g/dL 32-36 [facility] No Panel InformationOrdered By: Vidal Solorio on 05-22-2023 Estimated Creatinine Clearance Calc 82.98 ml/min [facility] Estimated GFR (MDRD) Amer 100 mL/min >60 [facility] Comment on above: GFR Calc Estimated GFR (MDRD) Non-Af Amer 83 mL/min >60 [facility] Comment on above: Non- GFR Calc Platelets bldOrdered By: Roxi Solorio on 05-22-2023 Platelets (Bld) [#/Vol] 196 10*3/uL 150-450 [facility] Serum or plasma calcium xiomara urement (mass/volume)Ordered By: Vidal Solorio on 05-22-2023 Calcium [Mass/Vol] 9.2 mg/dL 8.5-10.1 [facility] Serum or plasma creatinine m easurement (mass/volume)Ordered By: Vidal Solorio on 05-22-2023 Creatinine [Mass/Vol] 0.78 mg/dL 0.55-1.02 [facility] Comment on above: The validity of the calculated GFR & GFRAA in patients over 70 years has not been determined. Clinical correlation is essential. Serum or plasma urea nitroge n measurement (mass/volume)Ordered By: Vidal Solorio on 05-22-2023 Urea nitrogen [Mass/Vol] 9 mg/dL 7-18 [facility] Thin prep Papanicolaou smear with manual screeningOrdered By: Vidal Solorio on 05-22-2023 Thin prep Papanicolaou smear with manual screening 4 5-15 [facility] Absolute lymphocyte countOrd ered By: Brenda Posadas on 05-07-2023 Lymphocytes Auto (Unsp spec) [#/Vol] 1.39 10*3/uL 0.83-4.51 [facility] Basophil percentageOrdered B y: Brenda Posadas on 05-07-2023 Basophils/100 WBC (Bld) 1.1 % 0-1 [facility] Chloride [Moles/Vol] 102 mmol/L 98-107 [facility] Eosinophils/100 WBC (Bld) 3.0 % 0-5 [facility] Glucose [Mass/Vol] 85 mg/dL 74-106 [facility] Neutrophils (Bld) [#/Vol] 4.2 10*3/uL 2.0-7.7 [facility] Neutrophils/100 WBC (Bld) 66.3 % 47-70 [facility] Potassium [Moles/Vol] 4.2 mmol/L 3.5-5.1 [facility] Sodium [Moles/Vol] 136 mmol/L 136-145 [facility] WBC (Bld) [#/Vol] 6.3 10*3/uL 4.4-11.0 [facility] Blood erythrocytes count (nu mber/volume)Ordered By: Brenda Posadas on 05-07-2023 RBC (Bld) [#/Vol] 5.19 10*6/uL 4.2-5.4 [facility] Blood hemoglobin measurement (mass/volume)Ordered By: Brenda Posadas on 05-07-2023 Hemoglobin (Bld) [Mass/Vol] 13.5 g/dL 12.0-15.0 [facility] Blood lymphocytes/100 leukoc ytesOrdered By: Brenda Posadas on 05-07-2023 Lymphocytes/100 WBC (Bld) 22.0 % 19-41 [facility] Blood monocytes/100 leukocyt esOrdered By: Brenda Posadas on 05-07-2023 Monocytes/100 WBC (Bld) 7.3 % 0-10 [facility] Blood platelet mean volumeOr dered By: Brenda Posadas on 05-07-2023 Platelet mean volume (Bld) [Entitic vol] 10.5 fL 6.2-12.0 [facility] Determination of erythrocyte mean corpuscular volume (MCV)Ordered By: Brenda Posadas on 05-07-2023 MCV (RBC) [Entitic vol] 83.8 fL 81-99 [facility] Glucose Glucometer (BldC) [M ass/Vol]Ordered By: Latricia Aaron on 05-07-2023 Glucose [Mass/Vol] 229 mg/dL 74-106 [facility] Comment on above: MANAGEMENT OF PATIEN T CARE PER NURSING PROTOCOL Hematocrit Auto (Bld) [Volum e fraction]Ordered By: Brenda Posadas on 05-07-2023 Hematocrit (Bld) [Volume fraction] 43.5 % 37-47 [facility] Laboratory - Chemistry and C hemistry - challengeOrdered By: Brenda Posadas on 05-07-2023 CO2 [Moles/Vol] 26.0 mmol/L 21.0-32.0 [facility] Urea nitrogen/Creatinine [Mass ratio] 20.5 mg/mg 10-20 [facility] Laboratory - Hematology and Cell countsOrdered By: Brenda Posadas on 05-07-2023 Erythrocyte distribution width (RBC) [Entitic vol] 42.9 fL 35.1-43.9 [facility] Erythrocyte distribution width (RBC) [Ratio] 14.1 % 11.6-14.6 [facility] Immature granulocytes/100 WBC (Bld) 0.300 % 0.0-0.9 [facility] Comment on above: IG% - Immature Granu locytes (promyelocytes, myelocytes and metamyelocytes) > 1% indicates that a LEFT SHIFT is Present. MCH (RBC) [Entitic mass] 26.0 pg 27.0-32.0 [facility] Nucleated RBC/100 WBC (Bld) [Ratio] 0 % 0-5 [facility] MCHC Auto (RBC) [Mass/Vol]Or dered By: Brenda Posadas on 05-07-2023 MCHC (RBC) [Mass/Vol] 31.0 g/dL 32-36 [facility] No Panel InformationOrdered By: Brenda Posadas on 05-07-2023 Estimated Creatinine Clearance Calc 88.66 ml/min [facility] Estimated GFR (MDRD) Amer 108 mL/min >60 [facility] Comment on above: GFR Calc Estimated GFR (MDRD) Non-Af Amer 89 mL/min >60 [facility] Comment on above: Non- GFR Calc Platelets bldOrdered By: Lake Posadas on 05-07-2023 Platelets (Bld) [#/Vol] 202 10*3/uL 150-450 [facility] Serum or plasma calcium xiomara urement (mass/volume)Ordered By: Brenda Posadas on 05-07-2023 Calcium [Mass/Vol] 8.7 mg/dL 8.5-10.1 [facility] Serum or plasma creatinine m easurement (mass/volume)Ordered By: Brenda Posadas on 05-07-2023 Creatinine [Mass/Vol] 0.73 mg/dL 0.55-1.02 [facility] Comment on above: The validity of the calculated GFR & GFRAA in patients over 70 years has not been determined. Clinical correlation is essential. Serum or plasma urea nitroge n measurement (mass/volume)Ordered By: Brenda Posadas on 05-07-2023 Urea nitrogen [Mass/Vol] 15 mg/dL 7-18 [facility] Thin prep Papanicolaou smear with manual screeningOrdered By: Brenda Posadas on 05-07-2023 Thin prep Papanicolaou smear with manual screening 8 5-15 [facility] Laboratory - Chemistry and C hemistry - challengeOrdered By: Lei Justin on 05-04-2023 Magnesium [Mass/Vol] 2.1 mg/dL 1.6-2.6 [facility] No Panel InformationOrdered By: Brenda Posadas on 05-04-2023 Troponin I High Sensitivity 13 pg/mL 3.0-54.0 [facility] Comment on above: Please Note: New Junie t Units and Gender Specific Reference Ranges. For more information see Policy Stat Procedure [facility] High Sensitivity Troponin (TNIH) and attachments. Absolute lymphocyte countOrd ered By: Ananda Coyle on 05-03-2023 Lymphocytes Auto (Unsp spec) [#/Vol] 1.07 10*3/uL 0.83-4.51 [facility] Basophil percentageOrdered B y: Ananda Coyle on 05-03-2023 Basophils/100 WBC (Bld) 0.9 % 0-1 [facility] Chloride [Moles/Vol] 106 mmol/L 98-107 [facility] Eosinophils/100 WBC (Bld) 3.4 % 0-5 [facility] Glucose [Mass/Vol] 323 mg/dL 74-106 [facility] Comment on above: Glucose result great er than or equal to 200 mg/dLsuggests DIABETES MELLITUS per A.D.A. criteria. Neutrophils (Bld) [#/Vol] 6.1 10*3/uL 2.0-7.7 [facility] Neutrophils/100 WBC (Bld) 77.6 % 47-70 [facility] Potassium [Moles/Vol] 3.6 mmol/L 3.5-5.1 [facility] Sodium [Moles/Vol] 138 mmol/L 136-145 [facility] WBC (Bld) [#/Vol] 7.9 10*3/uL 4.4-11.0 [facility] Blood erythrocytes count (nu mber/volume)Ordered By: Ananda Coyle on 05-03-2023 RBC (Bld) [#/Vol] 4.86 10*6/uL 4.2-5.4 [facility] Blood hemoglobin measurement (mass/volume)Ordered By: Ananda Coyle on 05-03-2023 Hemoglobin (Bld) [Mass/Vol] 12.6 g/dL 12.0-15.0 [facility] Blood lymphocytes/100 leukoc ytesOrdered By: Ananda Coyle on 05-03-2023 Lymphocytes/100 WBC (Bld) 13.6 % 19-41 [facility] Blood monocytes/100 leukocyt esOrdered By: Ananda Coyle on 05-03-2023 Monocytes/100 WBC (Bld) 3.9 % 0-10 [facility] Blood platelet mean volumeOr dered By: Ananda Coyle on 05-03-2023 Platelet mean volume (Bld) [Entitic vol] 9.8 fL 6.2-12.0 [facility] Determination of erythrocyte mean corpuscular volume (MCV)Ordered By: Ananda Coyle on 05-03-2023 MCV (RBC) [Entitic vol] 82.5 fL 81-99 [facility] Hematocrit Auto (Bld) [Volum e fraction]Ordered By: Ananda Coyle on 05-03-2023 Hematocrit (Bld) [Volume fraction] 40.1 % 37-47 [facility] Influenza virus A and B and SARS-CoV-2 (COVID-19) Ag panel - Upper respiratory specimOrdered By: Ananda Coyle on 05-03-2023 SARS-CoV-2 (COVID-19) RNA CRISSY+probe Ql (Resp) [facility] Laboratory - Chemistry and C hemistry - challengeOrdered By: Ananda Coyle on 05-03-2023 CO2 [Moles/Vol] 29.0 mmol/L 21.0-32.0 [facility] Natriuretic peptide B (Bld) [Mass/Vol] 941.8 pg/mL 0-100 [facility] Urea nitrogen/Creatinine [Mass ratio] 13.0 mg/mg 10-20 [facility] Laboratory - Hematology and Cell countsOrdered By: Ananda Coyle on 05-03-2023 Erythrocyte distribution width (RBC) [Entitic vol] 41.4 fL 35.1-43.9 [facility] Erythrocyte distribution width (RBC) [Ratio] 14.2 % 11.6-14.6 [facility] Immature granulocytes/100 WBC (Bld) 0.600 % 0.0-0.9 [facility] Comment on above: IG% - Immature Granu locytes (promyelocytes, myelocytes and metamyelocytes) > 1% indicates that a LEFT SHIFT is Present. MCH (RBC) [Entitic mass] 25.9 pg 27.0-32.0 [facility] Nucleated RBC/100 WBC (Bld) [Ratio] 0 % 0-5 [facility] MCHC Auto (RBC) [Mass/Vol]Or dered By: Ananda Coyle on 05-03-2023 MCHC (RBC) [Mass/Vol] 31.4 g/dL 32-36 [facility] No Panel InformationOrdered By: Ananda Coyle on 05-03-2023 Estimated Creatinine Clearance Calc 84.06 ml/min [facility] Estimated GFR (MDRD) Amer 102 mL/min >60 [facility] Comment on above: GFR Calc Estimated GFR (MDRD) Non-Af Amer 84 mL/min >60 [facility] Comment on above: Non- GFR Calc Troponin I High Sensitivity 14 pg/mL 3.0-54.0 [facility] Comment on above: Please Note: New Junie t Units and Gender Specific Reference Ranges. For more information see Policy Stat Procedure [facility] High Sensitivity Troponin (TNIH) and attachments. Platelets bldOrdered By: Andrew Coyle on 05-03-2023 Platelets (Bld) [#/Vol] 210 10*3/uL 150-450 [facility] Serum or plasma calcium xiomara urement (mass/volume)Ordered By: Ananda Coyle on 05-03-2023 Calcium [Mass/Vol] 8.6 mg/dL 8.5-10.1 [facility] Serum or plasma creatinine m easurement (mass/volume)Ordered By: Ananda Coyle on 05-03-2023 Creatinine [Mass/Vol] 0.77 mg/dL 0.55-1.02 [facility] Comment on above: The validity of the calculated GFR & GFRAA in patients over 70 years has not been determined. Clinical correlation is essential. Serum or plasma urea nitroge n measurement (mass/volume)Ordered By: Ananda Coyle on 05-03-2023 Urea nitrogen [Mass/Vol] 10 mg/dL 7-18 [facility] Thin prep Papanicolaou smear with manual screeningOrdered By: Ananda Coyle on 05-03-2023 Thin prep Papanicolaou smear with manual screening 3 5-15 [facility] Upper respiratory specimen i nfluenza A virus, influenza B virus, and severe acute resOrdered By: Ananda Coyle on 05-03-2023 Upper respiratory specimen influenza A virus, influenza B virus, and severe acute res [facility] Upper respiratory specimen i nfluenza A virus, influenza B virus, and severe acute respiratory syndromOrdered By: Ananda Coyle on 05-03-2023 Upper respiratory specimen influenza A virus, influenza B virus, and severe acute respiratory syndrom [facility] Whole blood hemoglobin A1c/t otal hemoglobin ratio (mass fraction)Ordered By: Lei Justin on 05-03-2023 HbA1c (Bld) [Mass fraction] 11.0 % 3.8-5.6 [facility] Comment on above: Normal < 5.7 % Predi abetic 5.7 - 6.4 % Diabetic >or= 6.5 % Please note range changes. Basophil percentageOrdered B y: Lino Sousa on 04-18-2023 Amylase [Catalytic activity/Vol] 45 U/L 25-115 [facility] Bilirubin [Mass/Vol] 0.90 mg/dL 0.20-1.00 [facility] Comment on above: For patients on eltr ombopag therapy, use of Dimension [facility] TBIL is not recommended. Chloride [Moles/Vol] 103 mmol/L 98-107 [facility] Glucose [Mass/Vol] 279 mg/dL 74-106 [facility] Comment on above: Glucose result great er than or equal to 200 mg/dLsuggests DIABETES MELLITUS per A.D.A. criteria. Potassium [Moles/Vol] 4.1 mmol/L 3.5-5.1 [facility] Protein [Mass/Vol] 7.5 g/dL 6.4-8.2 [facility] Sodium [Moles/Vol] 137 mmol/L 136-145 [facility] Laboratory - Chemistry and C hemistry - challengeOrdered By: Lino Sousa on 04-18-2023 ALP [Catalytic activity/Vol] 104 U/L 45-117 [facility] ALT [Catalytic activity/Vol] 13 U/L 13-56 [facility] CO2 [Moles/Vol] 30.0 mmol/L 21.0-32.0 [facility] Globulin (S) [Mass/Vol] 4.5 g/dL 2.2-4.2 [facility] Lipase [Catalytic activity/Vol] 27 U/L 13-75 [facility] Comment on above: Please note:LIPASE r evised reference range effective 22. New Lipase methodology. Expected to produce lower values than the previous assay method. NEW Reference Range: 13 - 75 U/L Urea nitrogen/Creatinine [Mass ratio] 12.8 mg/mg 10-20 [facility] No Panel InformationOrdered By: Lino Sousa on 04-18-2023 Estimated GFR (MDRD) Amer 90 mL/min >60 [facility] Comment on above: GFR Calc Estimated GFR (MDRD) Non-Af Amer 74 mL/min >60 [facility] Comment on above: Non- GFR Calc Serum or plasma albumin xiomara urement (mass/volume)Ordered By: Lino Sousa on 04-18-2023 Albumin [Mass/Vol] 3.0 g/dL 3.2-5.0 [facility] Serum or plasma albumin/glob ulin mass ratioOrdered By: Lino Sousa on 04-18-2023 Albumin/Globulin [Mass ratio] 0.7 {ratio} 0.9-2.4 [facility] Serum or plasma calcium xiomara urement (mass/volume)Ordered By: Lino Sousa on 04-18-2023 Calcium [Mass/Vol] 9.0 mg/dL 8.5-10.1 [facility] Serum or plasma creatinine m easurement (mass/volume)Ordered By: Lino Sousa on 04-18-2023 Creatinine [Mass/Vol] 0.86 mg/dL 0.55-1.02 [facility] Comment on above: The validity of the calculated GFR & GFRAA in patients over 70 years has not been determined. Clinical correlation is essential. Serum or plasma urea nitroge n measurement (mass/volume)Ordered By: Lino Sousa on 04-18-2023 Urea nitrogen [Mass/Vol] 11 mg/dL 7-18 [facility] Thin prep Papanicolaou smear with manual screeningOrdered By: Lino Sousa on 04-18-2023 Thin prep Papanicolaou smear with manual screening 12 U/L 15-37 [facility] Thin prep Papanicolaou smear with manual screening 4 5-15 [facility] Absolute lymphocyte countOrd ered By: Brandon Adames on 02-03-2023 Lymphocytes Auto (Unsp spec) [#/Vol] 1.68 10*3/uL 0.83-4.51 [facility] Basophil percentageOrdered B y: Brandon Adames on 02-03-2023 Basophils/100 WBC (Bld) 1.0 % 0-1 [facility] Chloride [Moles/Vol] 106 mmol/L 98-107 [facility] Eosinophils/100 WBC (Bld) 3.2 % 0-5 [facility] Glucose [Mass/Vol] 177 mg/dL 74-106 [facility] Comment on above: Fasting Glucose resu lt greater than or equal to 126 mg/dL suggests DIABETES MELLITUS per A.D.A. criteria. Neutrophils (Bld) [#/Vol] 5.9 10*3/uL 2.0-7.7 [facility] Neutrophils/100 WBC (Bld) 70.1 % 47-70 [facility] Potassium [Moles/Vol] 3.6 mmol/L 3.5-5.1 [facility] Sodium [Moles/Vol] 138 mmol/L 136-145 [facility] WBC (Bld) [#/Vol] 8.4 10*3/uL 4.4-11.0 [facility] Blood erythrocytes count (nu mber/volume)Ordered By: Branodn Adames on 02-03-2023 RBC (Bld) [#/Vol] 4.78 10*6/uL 4.2-5.4 [facility] Blood hemoglobin measurement (mass/volume)Ordered By: Brandon Adames on 02-03-2023 Hemoglobin (Bld) [Mass/Vol] 13.1 g/dL 12.0-15.0 [facility] Blood lymphocytes/100 leukoc ytesOrdered By: Brandon Adames on 02-03-2023 Lymphocytes/100 WBC (Bld) 20.1 % 19-41 [facility] Blood monocytes/100 leukocyt esOrdered By: Brandon Adames on 02-03-2023 Monocytes/100 WBC (Bld) 5.4 % 0-10 [facility] Blood platelet mean volumeOr dered By: Brandon Adames on 02-03-2023 Platelet mean volume (Bld) [Entitic vol] 9.9 fL 6.2-12.0 [facility] Determination of erythrocyte mean corpuscular volume (MCV)Ordered By: Brandon Adames on 02-03-2023 MCV (RBC) [Entitic vol] 86.0 fL 81-99 [facility] Glucose Glucometer (BldC) [M ass/Vol]Ordered By: Sabina Rosenberg on 02-03-2023 Glucose [Mass/Vol] 247 mg/dL 74-106 [facility] Comment on above: MANAGEMENT OF PATIEN T CARE PER NURSING PROTOCOL Hematocrit Auto (Bld) [Volum e fraction]Ordered By: Brandon Adames on 02-03-2023 Hematocrit (Bld) [Volume fraction] 41.1 % 37-47 [facility] Laboratory - Chemistry and C hemistry - challengeOrdered By: Brandon Adames on 02-03-2023 CO2 [Moles/Vol] 27.0 mmol/L 21.0-32.0 [facility] Urea nitrogen/Creatinine [Mass ratio] 12.6 mg/mg 10-20 [facility] Laboratory - Hematology and Cell countsOrdered By: Brandon Adames on 02-03-2023 Erythrocyte distribution width (RBC) [Entitic vol] 40.4 fL 35.1-43.9 [facility] Erythrocyte distribution width (RBC) [Ratio] 13.1 % 11.6-14.6 [facility] Immature granulocytes/100 WBC (Bld) 0.200 % 0.0-0.9 [facility] Comment on above: IG% - Immature Granu locytes (promyelocytes, myelocytes and metamyelocytes) > 1% indicates that a LEFT SHIFT is Present. MCH (RBC) [Entitic mass] 27.4 pg 27.0-32.0 [facility] Nucleated RBC/100 WBC (Bld) [Ratio] 0 % 0-5 [facility] MCHC Auto (RBC) [Mass/Vol]Or dered By: Brandon Adames on 02-03-2023 MCHC (RBC) [Mass/Vol] 31.9 g/dL 32-36 [facility] No Panel InformationOrdered By: Brandon Adames on 02-03-2023 Estimated Creatinine Clearance Calc 115.58 ml/min [facility] Estimated GFR (MDRD) Amer 148 mL/min >60 [facility] Comment on above: GFR Calc Estimated GFR (MDRD) Non-Af Amer 122 mL/min >60 [facility] Comment on above: Non- GFR Calc No Panel InformationOrdered By: Michael Kinsey on 02-03-2023 Troponin I High Sensitivity 26 pg/mL 3.0-54.0 [facility] Comment on above: Please Note: New Junie t Units and Gender Specific Reference Ranges. For more information see Policy Stat Procedure [facility] High Sensitivity Troponin (TNIH) and attachments. Platelets bldOrdered By: Yamil Adames on 02-03-2023 Platelets (Bld) [#/Vol] 226 10*3/uL 150-450 [facility] Serum or plasma calcium xiomara urement (mass/volume)Ordered By: Brandon Adames on 02-03-2023 Calcium [Mass/Vol] 8.3 mg/dL 8.5-10.1 [facility] Serum or plasma creatinine m easurement (mass/volume)Ordered By: Brandon Adames on 02-03-2023 Creatinine [Mass/Vol] 0.56 mg/dL 0.55-1.02 [facility] Comment on above: The validity of the calculated GFR & GFRAA in patients over 70 years has not been determined. Clinical correlation is essential. Serum or plasma urea nitroge n measurement (mass/volume)Ordered By: Brandon Adames on 02-03-2023 Urea nitrogen [Mass/Vol] 7 mg/dL 7-18 [facility] Thin prep Papanicolaou smear with manual screeningOrdered By: Brandon Adames on 02-03-2023 Thin prep Papanicolaou smear with manual screening 5 5-15 [facility] Absolute lymphocyte countOrd ered By: Zack Card on 02-02-2023 Lymphocytes Auto (Unsp spec) [#/Vol] 1.45 10*3/uL 0.83-4.51 [facility] Basophil percentageOrdered B y: Zack Card on 02-02-2023 Basophils/100 WBC (Bld) 1.1 % 0-1 [facility] Chloride [Moles/Vol] 104 mmol/L 98-107 [facility] Eosinophils/100 WBC (Bld) 3.9 % 0-5 [facility] Glucose [Mass/Vol] 249 mg/dL 74-106 [facility] Comment on above: Glucose result great er than or equal to 200 mg/dLsuggests DIABETES MELLITUS per A.D.A. criteria. Neutrophils (Bld) [#/Vol] 5.5 10*3/uL 2.0-7.7 [facility] Neutrophils/100 WBC (Bld) 70.1 % 47-70 [facility] Potassium [Moles/Vol] 3.6 mmol/L 3.5-5.1 [facility] Sodium [Moles/Vol] 138 mmol/L 136-145 [facility] WBC (Bld) [#/Vol] 7.9 10*3/uL 4.4-11.0 [facility] Blood erythrocytes count (nu mber/volume)Ordered By: Zack Card on 02-02-2023 RBC (Bld) [#/Vol] 4.79 10*6/uL 4.2-5.4 [facility] Blood hemoglobin measurement (mass/volume)Ordered By: Zack Card on 02-02-2023 Hemoglobin (Bld) [Mass/Vol] 13.2 g/dL 12.0-15.0 [facility] Blood lymphocytes/100 leukoc ytesOrdered By: Zack Card on 02-02-2023 Lymphocytes/100 WBC (Bld) 18.4 % 19-41 [facility] Blood monocytes/100 leukocyt esOrdered By: Zack Card on 02-02-2023 Monocytes/100 WBC (Bld) 6.1 % 0-10 [facility] Blood platelet mean volumeOr dered By: Zack Card on 02-02-2023 Platelet mean volume (Bld) [Entitic vol] 10.6 fL 6.2-12.0 [facility] Determination of erythrocyte mean corpuscular volume (MCV)Ordered By: Zack Card on 02-02-2023 MCV (RBC) [Entitic vol] 87.3 fL 81-99 [facility] Hematocrit Auto (Bld) [Volum e fraction]Ordered By: Zack Card on 02-02-2023 Hematocrit (Bld) [Volume fraction] 41.8 % 37-47 [facility] Laboratory - Chemistry and C hemistry - challengeOrdered By: Zack Card on 02-02-2023 CO2 [Moles/Vol] 30.0 mmol/L 21.0-32.0 [facility] Natriuretic peptide B (Bld) [Mass/Vol] 498.2 pg/mL 0-100 [facility] Urea nitrogen/Creatinine [Mass ratio] 11.7 mg/mg 10-20 [facility] Laboratory - Hematology and Cell countsOrdered By: Zack Card on 02-02-2023 Erythrocyte distribution width (RBC) [Entitic vol] 41.2 fL 35.1-43.9 [facility] Erythrocyte distribution width (RBC) [Ratio] 13.0 % 11.6-14.6 [facility] Immature granulocytes/100 WBC (Bld) 0.400 % 0.0-0.9 [facility] Comment on above: IG% - Immature Granu locytes (promyelocytes, myelocytes and metamyelocytes) > 1% indicates that a LEFT SHIFT is Present. MCH (RBC) [Entitic mass] 27.6 pg 27.0-32.0 [facility] Nucleated RBC/100 WBC (Bld) [Ratio] 0 % 0-5 [facility] MCHC Auto (RBC) [Mass/Vol]Or dered By: Zack Card on 02-02-2023 MCHC (RBC) [Mass/Vol] 31.6 g/dL 32-36 [facility] No Panel InformationOrdered By: Zack Card on 02-02-2023 Troponin I High Sensitivity 24 pg/mL 3.0-54.0 [facility] Comment on above: Please Note: New Junie t Units and Gender Specific Reference Ranges. For more information see Policy Stat Procedure [facility] High Sensitivity Troponin (TNIH) and attachments. D-Dimer Quantitative (PE/DVT) 0.99 FEU/ug/m 0.27-0.49 [facility] Comment on above: D-Dimer ELEVATED (>0 .49): Additional studies and clinicalassessments are indicated to conclude diagnosis of:Deep Vein Thrombosis (DVT) or Pulmonary Embolism (PE) Estimated Creatinine Clearance Calc 90.30 ml/min [facility] Estimated GFR (MDRD) Amer 116 mL/min >60 [facility] Comment on above: GFR Calc Estimated GFR (MDRD) Non-Af Amer 96 mL/min >60 [facility] Comment on above: Non- GFR Calc Platelets bldOrdered By: Sanjay Card on 02-02-2023 Platelets (Bld) [#/Vol] 238 10*3/uL 150-450 [facility] Serum or plasma calcium xiomara urement (mass/volume)Ordered By: Zack Card on 02-02-2023 Calcium [Mass/Vol] 8.9 mg/dL 8.5-10.1 [facility] Serum or plasma creatinine m easurement (mass/volume)Ordered By: Zack Card on 02-02-2023 Creatinine [Mass/Vol] 0.69 mg/dL 0.55-1.02 [facility] Comment on above: The validity of the calculated GFR & GFRAA in patients over 70 years has not been determined. Clinical correlation is essential. Serum or plasma urea nitroge n measurement (mass/volume)Ordered By: Zack Card on 02-02-2023 Urea nitrogen [Mass/Vol] 8 mg/dL 7-18 [facility] Thin prep Papanicolaou smear with manual screeningOrdered By: Zack Card on 02-02-2023 Thin prep Papanicolaou smear with manual screening 4 5-15 [facility] Glucose Glucometer (BldC) [M ass/Vol]Ordered By: Sabina Rosenberg on 01-03-2023 Glucose [Mass/Vol] 154 mg/dL 74-106 [facility] Comment on above: MANAGEMENT OF PATIEN T CARE PER NURSING PROTOCOL Basophil percentageOrdered B y: Sabina Rosenberg on 01-02-2023 Chloride [Moles/Vol] 100 mmol/L 98-107 [facility] Glucose [Mass/Vol] 293 mg/dL 74-106 [facility] Comment on above: Glucose result great er than or equal to 200 mg/dLsuggests DIABETES MELLITUS per A.D.A. criteria. Potassium [Moles/Vol] 3.7 mmol/L 3.5-5.1 [facility] Sodium [Moles/Vol] 136 mmol/L 136-145 [facility] Laboratory - Chemistry and C hemistry - challengeOrdered By: Sabina Rosenberg on 01-02-2023 CO2 [Moles/Vol] 30.0 mmol/L 21.0-32.0 [facility] Urea nitrogen/Creatinine [Mass ratio] 8.3 mg/mg 10-20 [facility] No Panel InformationOrdered By: Sabina Rosenberg on 01-02-2023 Estimated Creatinine Clearance Calc 86.54 ml/min [facility] Estimated GFR (MDRD) Amer 109 mL/min >60 [facility] Comment on above: GFR Calc Estimated GFR (MDRD) Non-Af Amer 90 mL/min >60 [facility] Comment on above: Non- GFR Calc Serum or plasma calcium xiomara urement (mass/volume)Ordered By: Sabina Rosenberg on 01-02-2023 Calcium [Mass/Vol] 8.7 mg/dL 8.5-10.1 [facility] Serum or plasma creatinine m easurement (mass/volume)Ordered By: Sabina Rosenberg on 01-02-2023 Creatinine [Mass/Vol] 0.72 mg/dL 0.55-1.02 [facility] Comment on above: The validity of the calculated GFR & GFRAA in patients over 70 years has not been determined. Clinical correlation is essential. Serum or plasma urea nitroge n measurement (mass/volume)Ordered By: Sabina Rosenberg on 01-02-2023 Urea nitrogen [Mass/Vol] 6 mg/dL 7-18 [facility] Thin prep Papanicolaou smear with manual screeningOrdered By: Sabina Rosenberg on 01-02-2023 Thin prep Papanicolaou smear with manual screening 6 5-15 [facility] Absolute lymphocyte countOrd ered By: Yvette Hanley on 01-01-2023 Lymphocytes Auto (Unsp spec) [#/Vol] 1.39 10*3/uL 0.83-4.51 [facility] Basophil percentageOrdered B y: Yvette Hanley on 01-01-2023 Basophils/100 WBC (Bld) 0.8 % 0-1 [facility] Chloride [Moles/Vol] 104 mmol/L 98-107 [facility] Eosinophils/100 WBC (Bld) 2.7 % 0-5 [facility] Glucose [Mass/Vol] 344 mg/dL 74-106 [facility] Comment on above: Glucose result great er than or equal to 200 mg/dLsuggests DIABETES MELLITUS per A.D.A. criteria. Neutrophils (Bld) [#/Vol] 6.5 10*3/uL 2.0-7.7 [facility] Neutrophils/100 WBC (Bld) 75.1 % 47-70 [facility] Potassium [Moles/Vol] 4.0 mmol/L 3.5-5.1 [facility] Sodium [Moles/Vol] 136 mmol/L 136-145 [facility] WBC (Bld) [#/Vol] 8.7 10*3/uL 4.4-11.0 [facility] Blood erythrocytes count (nu mber/volume)Ordered By: Yvette Hanley on 01-01-2023 RBC (Bld) [#/Vol] 5.13 10*6/uL 4.2-5.4 [facility] Blood hemoglobin measurement (mass/volume)Ordered By: Yvette Hanley on 01-01-2023 Hemoglobin (Bld) [Mass/Vol] 14.0 g/dL 12.0-15.0 [facility] Blood lymphocytes/100 leukoc ytesOrdered By: Yvette Hanley on 01-01-2023 Lymphocytes/100 WBC (Bld) 16.1 % 19-41 [facility] Blood monocytes/100 leukocyt esOrdered By: Yvette Hanley on 01-01-2023 Monocytes/100 WBC (Bld) 5.0 % 0-10 [facility] Blood platelet mean volumeOr dered By: Yvette Hanley on 01-01-2023 Platelet mean volume (Bld) [Entitic vol] 9.5 fL 6.2-12.0 [facility] Determination of erythrocyte mean corpuscular volume (MCV)Ordered By: Yvette Hanley on 01-01-2023 MCV (RBC) [Entitic vol] 84.2 fL 81-99 [facility] Hematocrit Auto (Bld) [Volum e fraction]Ordered By: Yvette Hanley on 01-01-2023 Hematocrit (Bld) [Volume fraction] 43.2 % 37-47 [facility] Influenza virus A and B and SARS-CoV-2 (COVID-19) Ag panel - Upper respiratory specimOrdered By: Hiram Talon on 01-01-2023 SARS-CoV-2 (COVID-19) RNA CRISSY+probe Ql (Resp) [facility] SARS-CoV-2 (COVID-19) RNA CRISSY+probe Ql (Resp) [facility] Laboratory - Chemistry and C hemistry - challengeOrdered By: Yvette Hanley on 01-01-2023 Natriuretic peptide B (Bld) [Mass/Vol] 573.6 pg/mL 0-100 [facility] CO2 [Moles/Vol] 27.0 mmol/L 21.0-32.0 [facility] Urea nitrogen/Creatinine [Mass ratio] 8.2 mg/mg 10-20 [facility] Laboratory - Hematology and Cell countsOrdered By: Yvette Hanley on 01-01-2023 Erythrocyte distribution width (RBC) [Entitic vol] 42.1 fL 35.1-43.9 [facility] Erythrocyte distribution width (RBC) [Ratio] 13.7 % 11.6-14.6 [facility] Immature granulocytes/100 WBC (Bld) 0.300 % 0.0-0.9 [facility] Comment on above: IG% - Immature Granu locytes (promyelocytes, myelocytes and metamyelocytes) > 1% indicates that a LEFT SHIFT is Present. MCH (RBC) [Entitic mass] 27.3 pg 27.0-32.0 [facility] Nucleated RBC/100 WBC (Bld) [Ratio] 0 % 0-5 [facility] MCHC Auto (RBC) [Mass/Vol]Or dered By: [facility] Talon on 01-01-2023 MCHC (RBC) [Mass/Vol] 32.4 g/dL 32-36 [facility] No Panel InformationOrdered By: Yvette Hanley on 01-01-2023 Troponin I High Sensitivity 12 pg/mL 3.0-54.0 [facility] Comment on above: Please Note: New Junie t Units and Gender Specific Reference Ranges. For more information see Policy Stat Procedure [facility] High Sensitivity Troponin (TNIH) and attachments. Estimated Creatinine Clearance Calc 84.20 ml/min [facility] Estimated GFR (MDRD) Amer 107 mL/min >60 [facility] Comment on above: GFR Calc Estimated GFR (MDRD) Non-Af Amer 88 mL/min >60 [facility] Comment on above: Non- GFR Calc Platelets bldOrdered By: Sallie Talon on 01-01-2023 Platelets (Bld) [#/Vol] 201 10*3/uL 150-450 [facility] Serum or plasma calcium xiomara urement (mass/volume)Ordered By: Yvette Hanley on 01-01-2023 Calcium [Mass/Vol] 8.7 mg/dL 8.5-10.1 [facility] Serum or plasma creatinine m easurement (mass/volume)Ordered By: Yvette Hanley on 01-01-2023 Creatinine [Mass/Vol] 0.74 mg/dL 0.55-1.02 [facility] Comment on above: The validity of the calculated GFR & GFRAA in patients over 70 years has not been determined. Clinical correlation is essential. Serum or plasma urea nitroge n measurement (mass/volume)Ordered By: Yvette Hanley on 01-01-2023 Urea nitrogen [Mass/Vol] 6 mg/dL 7-18 [facility] Thin prep Papanicolaou smear with manual screeningOrdered By: Yvette Hanley on 01-01-2023 Thin prep Papanicolaou smear with manual screening 5 5-15 [facility] Absolute lymphocyte countOrd ered By: Dr. Card on 09-18-2022 Lymphocytes Auto (Unsp spec) [#/Vol] 1.74 10*3/uL 0.83-4.51 [facility] Basophil percentageOrdered B y: Dr. Card on 09-18-2022 Basophil percentage 425 mg/dL 74-106 [facility] Basophil percentage 6.7 g/dL 6.4-8.2 [facility] Basophil percentage 0.70 mg/dL 0.20-1.00 [facility] Basophil percentage 132 mmol/L 136-145 [facility] Basophil percentage 4.7 mmol/L 3.5-5.1 [facility] Basophil percentage 100 mmol/L 98-107 [facility] Basophils (Bld) [#/Vol] 9.5 10*3/uL 4.4-11.0 [facility] Basophils (Bld) [#/Vol] 7.1 10*3/uL 2.0-7.7 [facility] Basophils/100 WBC (Bld) 74.8 % 47-70 [facility] Basophils/100 WBC (Bld) 0.7 % 0-5 [facility] Basophils/100 WBC (Bld) 0.4 % 0-1 [facility] Basophil percentageOrdered B y: Zack Card on 09-18-2022 Bilirubin [Mass/Vol] 0.70 mg/dL 0.20-1.00 [facility] Comment on above: For patients on eltr ombopag therapy, use of Dimension [facility] TBIL is not recommended. Chloride [Moles/Vol] 100 mmol/L 98-107 [facility] Glucose [Mass/Vol] 425 mg/dL 74-106 [facility] Comment on above: Glucose result great er than or equal to 200 mg/dLsuggests DIABETES MELLITUS per A.D.A. criteria. Potassium [Moles/Vol] 4.7 mmol/L 3.5-5.1 [facility] Protein [Mass/Vol] 6.7 g/dL 6.4-8.2 [facility] Sodium [Moles/Vol] 132 mmol/L 136-145 [facility] Eosinophils/100 WBC (Bld) 0.7 % 0-5 [facility] Neutrophils (Bld) [#/Vol] 7.1 10*3/uL 2.0-7.7 [facility] Neutrophils/100 WBC (Bld) 74.8 % 47-70 [facility] WBC (Bld) [#/Vol] 9.5 10*3/uL 4.4-11.0 [facility] Blood erythrocytes count (nu mber/volume)Ordered By: Dr. Card on 09-18-2022 RBC (Bld) [#/Vol] 6.20 10*6/uL 4.2-5.4 [facility] Blood hemoglobin measurement (mass/volume)Ordered By: Dr. Card on 09-18-2022 Hemoglobin (Bld) [Mass/Vol] 17.0 g/dL 12.0-15.0 [facility] Blood lymphocytes/100 leukoc ytesOrdered By: Dr. Card on 09-18-2022 Lymphocytes/100 WBC (Bld) 18.4 % 19-41 [facility] Blood monocytes/100 leukocyt esOrdered By: Dr. Card on 09-18-2022 Monocytes/100 WBC (Bld) 5.3 % 0-10 [facility] Blood platelet mean volumeOr dered By: Dr. Card on 09-18-2022 Platelet mean volume (Bld) [Entitic vol] 9.4 fL 6.2-12.0 [facility] Determination of erythrocyte mean corpuscular volume (MCV)Ordered By: Dr. Card on 09-18-2022 MCV (RBC) [Entitic vol] 82.7 fL 81-99 [facility] Direct bilirubinOrdered By: Dr. Card on 09-18-2022 Bilirubin.direct [Mass/Vol] 0.18 mg/dL 0.00-0.30 [facility] Glucose Glucometer (dC) [M ass/Vol]Ordered By: Dr. Card on 09-18-2022 Glucose [Mass/Vol] 281 mg/dL 74-106 [facility] Comment on above: MANAGEMENT OF PATIEN T CARE PER NURSING PROTOCOL Hematocrit Auto (Bld) [Volum e fraction]Ordered By: Dr. Card on 09-18-2022 Hematocrit (Bld) [Volume fraction] 51.3 % 37-47 [facility] Laboratory - Chemistry and C hemistry - challengeOrdered By: Zack Card on 09-18-2022 ALP [Catalytic activity/Vol] 111 U/L 45-117 [facility] ALT [Catalytic activity/Vol] 19 U/L 13-56 [facility] CO2 [Moles/Vol] 30.0 mmol/L 21.0-32.0 [facility] Globulin (S) [Mass/Vol] 3.9 g/dL 2.2-4.2 [facility] Lipase [Catalytic activity/Vol] 27 U/L 13-75 [facility] Comment on above: Please note:LIPASE r evised reference range effective 22. New Lipase methodology. Expected to produce lower values than the previous assay method. NEW Reference Range: 13 - 75 U/L Urea nitrogen/Creatinine [Mass ratio] 18.2 mg/mg 10-20 [facility] Laboratory - Hematology and Cell countsOrdered By: Zack Card on 09-18-2022 Erythrocyte distribution width (RBC) [Entitic vol] 38.1 fL 35.1-43.9 [facility] Erythrocyte distribution width (RBC) [Ratio] 12.7 % 11.6-14.6 [facility] Immature granulocytes/100 WBC (Bld) 0.400 % 0.0-0.9 [facility] Comment on above: IG% - Immature Granu locytes (promyelocytes, myelocytes and metamyelocytes) > 1% indicates that a LEFT SHIFT is Present. MCH (RBC) [Entitic mass] 27.4 pg 27.0-32.0 [facility] Nucleated RBC/100 WBC (Bld) [Ratio] 0 % 0-5 [facility] MCHC Auto (RBC) [Mass/Vol]Or dered By: Dr. Card on 09-18-2022 MCHC (RBC) [Mass/Vol] 33.1 g/dL 32-36 [facility] No Panel InformationOrdered By: Zack Card on 09-18-2022 Estimated Creatinine Clearance Calc 62.94 ml/min [facility] Estimated GFR (MDRD) Amer 76 mL/min >60 [facility] Comment on above: GFR Calc Estimated GFR (MDRD) Non-Af Amer 63 mL/min >60 [facility] Comment on above: Non- GFR Calc No Panel InformationOrdered By: Dr. Card on 09-18-2022 63 mL/min >60 [facility] 76 mL/min >60 [facility] 62.94 ml/min [facility] 18.2 RATIO 10-20 [facility] 3.9 g/dL 2.2-4.2 [facility] 27 U/L 13-75 [facility] 111 U/L 45-117 [facility] 19 U/L 13-56 [facility] 30.0 mmol/L 21.0-32.0 [facility] 27.4 pg 27.0-32.0 [facility] 12.7 % 11.6-14.6 [facility] 38.1 fl 35.1-43.9 [facility] 0.400 % 0.0-0.9 [facility] 0 % 0-5 [facility] Platelets bldOrdered By: Dr. Card on 09-18-2022 Platelets (Bld) [#/Vol] 268 10*3/uL 150-450 [facility] Serum or plasma albumin xiomara urement (mass/volume)Ordered By: Dr. Card on 09-18-2022 Albumin [Mass/Vol] 2.8 g/dL 3.2-5.0 [facility] Serum or plasma albumin/glob ulin mass ratioOrdered By: Dr. Card on 09-18-2022 Albumin/Globulin [Mass ratio] 0.7 {ratio} 0.9-2.4 [facility] Serum or plasma calcium xiomara urement (mass/volume)Ordered By: Dr. Card on 09-18-2022 Calcium [Mass/Vol] 9.0 mg/dL 8.5-10.1 [facility] Serum or plasma creatinine m easurement (mass/volume)Ordered By: Dr. Card on 09-18-2022 Creatinine [Mass/Vol] 0.99 mg/dL 0.55-1.02 [facility] Comment on above: The validity of the calculated GFR & GFRAA in patients over 70 years has not been determined. Clinical correlation is essential. Serum or plasma urea nitroge n measurement (mass/volume)Ordered By: Dr. Card on 09-18-2022 Urea nitrogen [Mass/Vol] 18 mg/dL 7-18 [facility] Thin prep Papanicolaou smear with manual screeningOrdered By: Dr. Card on 09-18-2022 Thin prep Papanicolaou smear with manual screening 14 U/L 15-37 [facility] Thin prep Papanicolaou smear with manual screening 2 5-15 [facility] Absolute lymphocyte countOrd ered By: Dr. Black on 09-11-2022 Lymphocytes Auto (Unsp spec) [#/Vol] 1.13 10*3/uL 0.83-4.51 [facility] Basophil percentageOrdered B y: Dr. Black on 09-11-2022 Basophil percentage 325 mg/dL 74-106 [facility] Basophil percentage 7.1 g/dL 6.4-8.2 [facility] Basophil percentage 0.60 mg/dL 0.20-1.00 [facility] Basophil percentage 134 mmol/L 136-145 [facility] Basophil percentage 3.9 mmol/L 3.5-5.1 [facility] Basophil percentage 100 mmol/L 98-107 [facility] Basophil percentage 1.2 mmol/L 0.4-2.0 [facility] Basophils (Bld) [#/Vol] 14.8 10*3/uL 4.4-11.0 [facility] Basophils (Bld) [#/Vol] 12.7 10*3/uL 2.0-7.7 [facility] Basophils/100 WBC (Bld) 85.8 % 47-70 [facility] Basophils/100 WBC (Bld) 0.8 % 0-5 [facility] Basophils/100 WBC (Bld) 0.6 % 0-1 [facility] Bilirubin [Mass/Vol] 0.60 mg/dL 0.20-1.00 [facility] Comment on above: For patients on eltr ombopag therapy, use of Dimension [employer] TBIL is not recommended. Chloride [Moles/Vol] 100 mmol/L 98-107 [facility] Eosinophils/100 WBC (Bld) 0.8 % 0-5 [facility] Glucose [Mass/Vol] 325 mg/dL 74-106 [facility] Comment on above: Glucose result great er than or equal to 200 mg/dLsuggests DIABETES MELLITUS per A.D.A. criteria. Lactate [Moles/Vol] 1.2 mmol/L 0.4-2.0 [facility] Neutrophils (Bld) [#/Vol] 12.7 10*3/uL 2.0-7.7 [facility] Neutrophils/100 WBC (Bld) 85.8 % 47-70 [facility] Potassium [Moles/Vol] 3.9 mmol/L 3.5-5.1 [facility] Protein [Mass/Vol] 7.1 g/dL 6.4-8.2 [facility] Sodium [Moles/Vol] 134 mmol/L 136-145 [facility] WBC (Bld) [#/Vol] 14.8 10*3/uL 4.4-11.0 [facility] Basophil percentage 0 SEEN /hpf 0-5 [facility] Bilirubin Test strip Ql (U)O rdered By: Dr. Black on 09-11-2022 Bilirubin Ql (U) Negative Negative [facility] Blood erythrocytes count (nu mber/volume)Ordered By: Dr. Black on 09-11-2022 RBC (Bld) [#/Vol] 5.71 10*6/uL 4.2-5.4 [facility] Blood hemoglobin measurement (mass/volume)Ordered By: Dr. Black on 09-11-2022 Hemoglobin (Bld) [Mass/Vol] 15.7 g/dL 12.0-15.0 [facility] Blood lymphocytes/100 leukoc ytesOrdered By: Dr. Black on 09-11-2022 Lymphocytes/100 WBC (Bld) 7.6 % 19-41 [facility] Blood monocytes/100 leukocyt esOrdered By: Dr. Black on 09-11-2022 Monocytes/100 WBC (Bld) 4.7 % 0-10 [facility] Blood platelet mean volumeOr dered By: Dr. Black on 09-11-2022 Platelet mean volume (Bld) [Entitic vol] 9.3 fL 6.2-12.0 [facility] Determination of erythrocyte mean corpuscular volume (MCV)Ordered By: Dr. Black on 09-11-2022 MCV (RBC) [Entitic vol] 83.7 fL 81-99 [facility] Hematocrit Auto (Bld) [Volum e fraction]Ordered By: Dr. Black on 09-11-2022 Hematocrit (Bld) [Volume fraction] 47.8 % 37-47 [facility] Ketones Test strip Ql (U)Ord ered By: Dr. Black on 09-11-2022 Ketones Ql (U) Negative Negative [facility] Laboratory - Chemistry and C hemistry - challengeOrdered By: Dr. Black on 09-11-2022 ALP [Catalytic activity/Vol] 115 U/L 45-117 [facility] ALT [Catalytic activity/Vol] 21 U/L 13-56 [facility] CO2 [Moles/Vol] 31.0 mmol/L 21.0-32.0 [facility] Globulin (S) [Mass/Vol] 4.1 g/dL 2.2-4.2 [facility] Lipase [Catalytic activity/Vol] 172 U/L 73-393 [facility] Urea nitrogen/Creatinine [Mass ratio] 14.1 mg/mg 10-20 [facility] Laboratory - Hematology and Cell countsOrdered By: Dr. Black on 09-11-2022 Erythrocyte distribution width (RBC) [Entitic vol] 38.4 fL 35.1-43.9 [facility] Erythrocyte distribution width (RBC) [Ratio] 12.8 % 11.6-14.6 [facility] Immature granulocytes/100 WBC (Bld) 0.500 % 0.0-0.9 [facility] Comment on above: IG% - Immature Granu locytes (promyelocytes, myelocytes and metamyelocytes) > 1% indicates that a LEFT SHIFT is Present. MCH (RBC) [Entitic mass] 27.5 pg 27.0-32.0 [facility] Nucleated RBC/100 WBC (Bld) [Ratio] 0 % 0-5 [facility] MCHC Auto (RBC) [Mass/Vol]Or dered By: Dr. Black on 09-11-2022 MCHC (RBC) [Mass/Vol] 32.8 g/dL 32-36 [facility] Mucus LM Ql (Urine sed)Order ed By: Dr. Black on 09-11-2022 Mucus Ql (Urine sed) 0 SEEN /hpf [facility] Nitrite Test strip Ql (U)Ord ered By: Dr. Black on 09-11-2022 Nitrite Ql (U) Negative Negative [facility] No Panel InformationOrdered By: Dr. Black on 09-11-2022 Estimated Creatinine Clearance Calc 91.16 ml/min [facility] Estimated GFR (MDRD) Amer 112 mL/min >60 [facility] Comment on above: GFR Calc Estimated GFR (MDRD) Non-Af Amer 93 mL/min >60 [facility] Comment on above: Non- GFR Calc 27.5 pg 27.0-32.0 [facility] 12.8 % 11.6-14.6 [facility] 38.4 fl 35.1-43.9 [facility] 0.500 % 0.0-0.9 [facility] 0 % 0-5 [facility] 93 mL/min >60 [facility] 112 mL/min >60 [facility] 91.16 ml/min [facility] 14.1 RATIO 10-20 [facility] 4.1 g/dL 2.2-4.2 [facility] 172 U/L 73-393 [facility] 115 U/L 45-117 [facility] 21 U/L 13-56 [facility] 31.0 mmol/L 21.0-32.0 [facility] Platelets bldOrdered By: Dr. Black on 09-11-2022 Platelets (Bld) [#/Vol] 290 10*3/uL 150-450 [facility] Protein Test strip Ql (U)Ord ered By: Dr. Black on 09-11-2022 Protein Ql (U) 100 mg/dl Negative [facility] Serum or plasma albumin xiomara urement (mass/volume)Ordered By: Dr. Black on 09-11-2022 Albumin [Mass/Vol] 3.0 g/dL 3.2-5.0 [facility] Serum or plasma albumin/glob ulin mass ratioOrdered By: Dr. Black on 09-11-2022 Albumin/Globulin [Mass ratio] 0.7 {ratio} 0.9-2.4 [facility] Serum or plasma calcium xiomara urement (mass/volume)Ordered By: Dr. Black on 09-11-2022 Calcium [Mass/Vol] 8.9 mg/dL 8.5-10.1 [facility] Serum or plasma creatinine m easurement (mass/volume)Ordered By: Dr. Black on 09-11-2022 Creatinine [Mass/Vol] 0.71 mg/dL 0.55-1.02 [facility] Comment on above: The validity of the calculated GFR & GFRAA in patients over 70 years has not been determined. Clinical correlation is essential. Serum or plasma urea nitroge n measurement (mass/volume)Ordered By: Dr. Black on 09-11-2022 Urea nitrogen [Mass/Vol] 10 mg/dL 7-18 [facility] Squamous epithelial cells de tection in urine sediment by light microscopyOrdered By: Dr. Black on 09-11-2022 Epithelial cells.squamous LM Ql (Urine sed) 0-5 SEEN /hpf 5-10 [facility] Thin prep Papanicolaou smear with manual screeningOrdered By: Dr. Black on 09-11-2022 Thin prep Papanicolaou smear with manual screening 18 U/L 15-37 [facility] Thin prep Papanicolaou smear with manual screening 3 5-15 [facility] Urine blood detectionOrdered By: Dr. Black on 09-11-2022 RBC Ql (U) 25 /ul Negative [facility] RBC Ql (U) 0 SEEN /hpf 0-5 [facility] Urine clarityOrdered By: Dr. Black on 09-11-2022 Clarity (U) Clear Clear [facility] Urine color determinationOrd ered By: Dr. Black on 09-11-2022 Color (U) Yellow Yellow [facility] Urine glucose detectionOrder ed By: Dr. Black on 09-11-2022 Glucose Ql (U) 1000 mg/dl Normal [facility] Urine leukocyte esterase det ection by dipstickOrdered By: Dr. Black on 09-11-2022 Leukocyte esterase Test strip Ql (U) Negative Negative [facility] Urine pHOrdered By: Dr. Artemio jean on 09-11-2022 pH (U) 7.0 [pH] 5.0 - 8.0 [facility] Urine sediment bacteria coun t by microscopy (number/high power field)Ordered By: Dr. Black on 09-11-2022 Bacteria LM.HPF (Urine sed) [#/Area] 0 /[HPF] None Seen [facility] Urine specific gravity measu rementOrdered By: Dr. Black on 09-11-2022 Specific gravity (U) [Rel density] 1.015 1.002-1.03 0 [facility] Urobilinogen Auto test strip Ql (U)Ordered By: Dr. Black on 09-11-2022 Urobilinogen Ql (U) Normal mg/dl Normal [facility] Absolute lymphocyte countOrd ered By: Dr. Christina on 09-09-2022 Lymphocytes Auto (Unsp spec) [#/Vol] 1.70 10*3/uL 0.83-4.51 [facility] Basophil percentageOrdered B y: Dr. Christina on 09-09-2022 Basophil percentage 0-5 SEEN /hpf 0-5 [facility] Basophil percentage 306 mg/dL 74-106 [facility] Basophil percentage 6.7 g/dL 6.4-8.2 [facility] Basophil percentage 0.70 mg/dL 0.20-1.00 [facility] Basophil percentage 134 mmol/L 136-145 [facility] Basophil percentage 3.5 mmol/L 3.5-5.1 [facility] Basophil percentage 98 mmol/L 98-107 [facility] Basophils (Bld) [#/Vol] 9.0 10*3/uL 4.4-11.0 [facility] Basophils (Bld) [#/Vol] 6.5 10*3/uL 2.0-7.7 [facility] Basophils/100 WBC (Bld) 1.0 % 0-1 [facility] Basophils/100 WBC (Bld) 72.3 % 47-70 [facility] Basophils/100 WBC (Bld) 1.4 % 0-5 [facility] Bilirubin [Mass/Vol] 0.70 mg/dL 0.20-1.00 [facility] Comment on above: For patients on eltr ombopag therapy, use of Dimension [place] TBIL is not recommended. Chloride [Moles/Vol] 98 mmol/L 98-107 [facility] Eosinophils/100 WBC (Bld) 1.4 % 0-5 [facility] Glucose [Mass/Vol] 306 mg/dL 74-106 [facility] Comment on above: Glucose result great er than or equal to 200 mg/dLsuggests DIABETES MELLITUS per A.D.A. criteria. Neutrophils (Bld) [#/Vol] 6.5 10*3/uL 2.0-7.7 [facility] Neutrophils/100 WBC (Bld) 72.3 % 47-70 [facility] Potassium [Moles/Vol] 3.5 mmol/L 3.5-5.1 [facility] Protein [Mass/Vol] 6.7 g/dL 6.4-8.2 [facility] Sodium [Moles/Vol] 134 mmol/L 136-145 [facility] WBC (Bld) [#/Vol] 9.0 10*3/uL 4.4-11.0 [facility] Bilirubin Test strip Ql (U)O rdered By: Dr. Christina on 09-09-2022 Bilirubin Ql (U) Negative Negative [facility] Blood erythrocytes count (nu mber/volume)Ordered By: Dr. Christina on 09-09-2022 RBC (Bld) [#/Vol] 5.26 10*6/uL 4.2-5.4 [facility] Blood hemoglobin measurement (mass/volume)Ordered By: Dr. Christina on 09-09-2022 Hemoglobin (Bld) [Mass/Vol] 14.3 g/dL 12.0-15.0 [facility] Blood lymphocytes/100 leukoc ytesOrdered By: Dr. Christina on 09-09-2022 Lymphocytes/100 WBC (Bld) 19.0 % 19-41 [facility] Blood monocytes/100 leukocyt esOrdered By: Dr. Christina on 09-09-2022 Monocytes/100 WBC (Bld) 6.0 % 0-10 [facility] Blood platelet mean volumeOr dered By: Dr. Christina on 09-09-2022 Platelet mean volume (Bld) [Entitic vol] 9.2 fL 6.2-12.0 [facility] Determination of erythrocyte mean corpuscular volume (MCV)Ordered By: Dr. Christina on 09-09-2022 MCV (RBC) [Entitic vol] 83.1 fL 81-99 [facility] Direct bilirubinOrdered By: Dr. Christina on 09-09-2022 Bilirubin.direct [Mass/Vol] 0.19 mg/dL 0.00-0.30 [facility] Hematocrit Auto (Bld) [Volum e fraction]Ordered By: Dr. Christina on 09-09-2022 Hematocrit (Bld) [Volume fraction] 43.7 % 37-47 [facility] Ketones Test strip Ql (U)Ord ered By: Dr. Christina on 09-09-2022 Ketones Ql (U) Negative Negative [facility] Laboratory - Chemistry and C hemistry - challengeOrdered By: Dr. Christina on 09-09-2022 ALP [Catalytic activity/Vol] 109 U/L 45-117 [facility] ALT [Catalytic activity/Vol] 18 U/L 13-56 [facility] CO2 [Moles/Vol] 31.0 mmol/L 21.0-32.0 [facility] Globulin (S) [Mass/Vol] 3.9 g/dL 2.2-4.2 [facility] Lipase [Catalytic activity/Vol] 47 U/L 73-393 [facility] Urea nitrogen/Creatinine [Mass ratio] 9.0 mg/mg 10-20 [facility] Laboratory - Hematology and Cell countsOrdered By: Dr. Christina on 09-09-2022 Erythrocyte distribution width (RBC) [Entitic vol] 38.2 fL 35.1-43.9 [facility] Erythrocyte distribution width (RBC) [Ratio] 12.7 % 11.6-14.6 [facility] Immature granulocytes/100 WBC (Bld) 0.300 % 0.0-0.9 [facility] Comment on above: IG% - Immature Granu locytes (promyelocytes, myelocytes and metamyelocytes) > 1% indicates that a LEFT SHIFT is Present. MCH (RBC) [Entitic mass] 27.2 pg 27.0-32.0 [facility] Nucleated RBC/100 WBC (Bld) [Ratio] 0 % 0-5 [facility] MCHC Auto (RBC) [Mass/Vol]Or dered By: Dr. Christina on 09-09-2022 MCHC (RBC) [Mass/Vol] 32.7 g/dL 32-36 [facility] Mucus LM Ql (Urine sed)Order ed By: Dr. Christina on 09-09-2022 Mucus Ql (Urine sed) 0 SEEN /hpf [facility] Nitrite Test strip Ql (U)Ord ered By: Dr. Christina on 09-09-2022 Nitrite Ql (U) Negative Negative [facility] No Panel InformationOrdered By: Dr. Christina on 09-09-2022 Estimated Creatinine Clearance Calc 96.60 ml/min [facility] Estimated GFR (MDRD) Amer 120 mL/min >60 [facility] Comment on above: GFR Calc Estimated GFR (MDRD) Non-Af Amer 99 mL/min >60 [facility] Comment on above: Non- GFR Calc Troponin I High Sensitivity 14 pg/mL 3.0-54.0 [facility] Comment on above: Please Note: New Junie t Units and Gender Specific Reference Ranges. For more information see Policy Stat Procedure [employer] High Sensitivity Troponin (TNIH) and attachments. 27.2 pg 27.0-32.0 [facility] 12.7 % 11.6-14.6 [facility] 38.2 fl 35.1-43.9 [facility] 0.300 % 0.0-0.9 [facility] 0 % 0-5 [facility] 99 mL/min >60 [facility] 120 mL/min >60 [facility] 96.60 ml/min [facility] 9.0 RATIO 10-20 [facility] 3.9 g/dL 2.2-4.2 [facility] 47 U/L 73-393 [facility] 14 pg/mL 3.0-54.0 [facility] 109 U/L 45-117 [facility] 18 U/L 13-56 [facility] 31.0 mmol/L 21.0-32.0 [facility] Platelets bldOrdered By: Dr. Christina on 09-09-2022 Platelets (Bld) [#/Vol] 290 10*3/uL 150-450 [facility] Protein Test strip Ql (U)Ord ered By: Dr. Christina on 09-09-2022 Protein Ql (U) 100 mg/dl Negative [facility] Serum or plasma albumin xiomara urement (mass/volume)Ordered By: Dr. Christina on 09-09-2022 Albumin [Mass/Vol] 2.8 g/dL 3.2-5.0 [facility] Serum or plasma calcium xiomara urement (mass/volume)Ordered By: Dr. Christina on 09-09-2022 Calcium [Mass/Vol] 8.8 mg/dL 8.5-10.1 [facility] Serum or plasma creatinine m easurement (mass/volume)Ordered By: Dr. Christina on 09-09-2022 Creatinine [Mass/Vol] 0.67 mg/dL 0.55-1.02 [facility] Comment on above: The validity of the calculated GFR & GFRAA in patients over 70 years has not been determined. Clinical correlation is essential. Serum or plasma urea nitroge n measurement (mass/volume)Ordered By: Dr. Christina on 09-09-2022 Urea nitrogen [Mass/Vol] 6 mg/dL 7-18 [facility] Squamous epithelial cells de tection in urine sediment by light microscopyOrdered By: Dr. Christina on 09-09-2022 Epithelial cells.squamous LM Ql (Urine sed) 5-10 SEEN /hpf 5-10 [facility] Thin prep Papanicolaou smear with manual screeningOrdered By: Dr. Christina on 09-09-2022 Thin prep Papanicolaou smear with manual screening 18 U/L 15-37 [facility] Thin prep Papanicolaou smear with manual screening 5 5-15 [facility] Urine blood detectionOrdered By: Dr. Christina on 09-09-2022 RBC Ql (U) 25 /ul Negative [facility] RBC Ql (U) 0-5 SEEN /hpf 0-5 [facility] Urine clarityOrdered By: Dr. Christina on 09-09-2022 Clarity (U) Sl. Cloudy Clear [facility] Urine color determinationOrd ered By: Dr. Christina on 09-09-2022 Color (U) Yellow Yellow [facility] Urine glucose detectionOrder ed By: Dr. Christina on 09-09-2022 Glucose Ql (U) 1000 mg/dl Normal [facility] Urine leukocyte esterase det ection by dipstickOrdered By: Dr. Christina on 09-09-2022 Leukocyte esterase Test strip Ql (U) 25 /ul Negative [facility] Urine pHOrdered By: Dr. Davis maxwell on 09-09-2022 pH (U) 8.0 [pH] 5.0 - 8.0 [facility] Urine sediment bacteria coun t by microscopy (number/high power field)Ordered By: Dr. Christina on 09-09-2022 Bacteria LM.HPF (Urine sed) [#/Area] 0 /[HPF] None Seen [facility] Urine specific gravity measu rementOrdered By: Dr. Christina on 09-09-2022 Specific gravity (U) [Rel density] 1.015 1.002-1.03 0 [facility] Urobilinogen Auto test strip Ql (U)Ordered By: Dr. Christina on 09-09-2022 Urobilinogen Ql (U) Normal mg/dl Normal [facility] Absolute lymphocyte countOrd ered By: Dr. Hanley on 09-05-2022 Lymphocytes Auto (Unsp spec) [#/Vol] 1.04 10*3/uL 0.83-4.51 [facility] Basophil percentageOrdered B y: Dr. Hanley on 09-05-2022 Basophil percentage 330 mg/dL 74-106 [facility] Basophil percentage 134 mmol/L 136-145 [facility] Basophil percentage 3.7 mmol/L 3.5-5.1 [facility] Basophil percentage 100 mmol/L 98-107 [facility] Basophils (Bld) [#/Vol] 8.5 10*3/uL 4.4-11.0 [facility] Basophils (Bld) [#/Vol] 6.8 10*3/uL 2.0-7.7 [facility] Basophils/100 WBC (Bld) 0.8 % 0-1 [facility] Basophils/100 WBC (Bld) 80.1 % 47-70 [facility] Chloride [Moles/Vol] 100 mmol/L 98-107 [facility] Eosinophils/100 WBC (Bld) 0.8 % 0-5 [facility] Glucose [Mass/Vol] 330 mg/dL 74-106 [facility] Comment on above: Glucose result great er than or equal to 200 mg/dLsuggests DIABETES MELLITUS per A.D.A. criteria. Neutrophils (Bld) [#/Vol] 6.8 10*3/uL 2.0-7.7 [facility] Neutrophils/100 WBC (Bld) 80.1 % 47-70 [facility] Potassium [Moles/Vol] 3.7 mmol/L 3.5-5.1 [facility] Sodium [Moles/Vol] 134 mmol/L 136-145 [facility] WBC (Bld) [#/Vol] 8.5 10*3/uL 4.4-11.0 [facility] Blood erythrocytes count (nu mber/volume)Ordered By: Dr. Hanley on 09-05-2022 RBC (Bld) [#/Vol] 5.21 10*6/uL 4.2-5.4 [facility] Blood hemoglobin measurement (mass/volume)Ordered By: Dr. Hanley on 09-05-2022 Hemoglobin (Bld) [Mass/Vol] 14.3 g/dL 12.0-15.0 [facility] Blood lymphocytes/100 leukoc ytesOrdered By: Dr. Hanley on 09-05-2022 Lymphocytes/100 WBC (Bld) 12.2 % 19-41 [facility] Blood monocytes/100 leukocyt esOrdered By: Dr. Hanley on 09-05-2022 Monocytes/100 WBC (Bld) 5.7 % 0-10 [facility] Blood platelet mean volumeOr dered By: Dr. Hanley on 09-05-2022 Platelet mean volume (Bld) [Entitic vol] 9.6 fL 6.2-12.0 [facility] Determination of erythrocyte mean corpuscular volume (MCV)Ordered By: Dr. Hanley on 09-05-2022 MCV (RBC) [Entitic vol] 84.3 fL 81-99 [facility] Hematocrit Auto (Bld) [Volum e fraction]Ordered By: Dr. Hanley on 09-05-2022 Hematocrit (Bld) [Volume fraction] 43.9 % 37-47 [facility] Laboratory - Chemistry and C hemistry - challengeOrdered By: Dr. Hanley on 09-05-2022 CO2 [Moles/Vol] 30.0 mmol/L 21.0-32.0 [facility] Urea nitrogen/Creatinine [Mass ratio] 5.7 mg/mg 10-20 [facility] Laboratory - Hematology and Cell countsOrdered By: Dr. Hanley on 09-05-2022 Erythrocyte distribution width (RBC) [Entitic vol] 38.6 fL 35.1-43.9 [facility] Erythrocyte distribution width (RBC) [Ratio] 12.6 % 11.6-14.6 [facility] Immature granulocytes/100 WBC (Bld) 0.400 % 0.0-0.9 [facility] Comment on above: IG% - Immature Granu locytes (promyelocytes, myelocytes and metamyelocytes) > 1% indicates that a LEFT SHIFT is Present. MCH (RBC) [Entitic mass] 27.4 pg 27.0-32.0 [facility] Nucleated RBC/100 WBC (Bld) [Ratio] 0 % 0-5 [facility] Laboratory - Microbiology an d Antimicrobial susceptibilityOrdered By: Dr. Rawls on 09-05-2022 Bacteria identified Cx Nom (Bld) No growth in 5 days. [facility] MCHC Auto (RBC) [Mass/Vol]Or dered By: Dr. Hanley on 09-05-2022 MCHC (RBC) [Mass/Vol] 32.6 g/dL 32-36 [facility] No Panel InformationOrdered By: Dr. Hanley on 09-05-2022 Estimated Creatinine Clearance Calc 92.46 ml/min [facility] Estimated GFR (MDRD) Amer 114 mL/min >60 [facility] Comment on above: GFR Calc Estimated GFR (MDRD) Non-Af Amer 94 mL/min >60 [facility] Comment on above: Non- GFR Calc 27.4 pg 27.0-32.0 [facility] 12.6 % 11.6-14.6 [facility] 38.6 fl 35.1-43.9 [facility] 0.400 % 0.0-0.9 [facility] 0 % 0-5 [facility] 94 mL/min >60 [facility] 114 mL/min >60 [facility] 92.46 ml/min [facility] 5.7 RATIO 10-20 [facility] 30.0 mmol/L 21.0-32.0 [facility] No Panel InformationOrdered By: Dr. Rawls on 09-05-2022 No growth in 5 days. [facility] Platelets bldOrdered By: Dr. Hanley on 09-05-2022 Platelets (Bld) [#/Vol] 234 10*3/uL 150-450 [facility] Serum or plasma calcium xiomara urement (mass/volume)Ordered By: Dr. Hanley on 09-05-2022 Calcium [Mass/Vol] 9.1 mg/dL 8.5-10.1 [facility] Serum or plasma creatinine m easurement (mass/volume)Ordered By: Dr. Hanley on 09-05-2022 Creatinine [Mass/Vol] 0.70 mg/dL 0.55-1.02 [facility] Comment on above: The validity of the calculated GFR & GFRAA in patients over 70 years has not been determined. Clinical correlation is essential. Serum or plasma urea nitroge n measurement (mass/volume)Ordered By: Dr. Hanley on 09-05-2022 Urea nitrogen [Mass/Vol] 4 mg/dL 7-18 [facility] Thin prep Papanicolaou smear with manual screeningOrdered By: Dr. Hanley on 09-05-2022 Thin prep Papanicolaou smear with manual screening 4 5-15 [facility] Glucose Glucometer (BldC) [M ass/Vol]Ordered By: Dr. Forde on 09-02-2022 Glucose [Mass/Vol] 211 mg/dL 74-106 [facility] Comment on above: MANAGEMENT OF PATIEN T CARE PER NURSING PROTOCOL Absolute lymphocyte countOrd ered By: Dr. Forde on 08-31-2022 Lymphocytes Auto (Unsp spec) [#/Vol] 1.81 10*3/uL 0.83-4.51 [facility] Bacteria identified Cx Nom ( U)Ordered By: Dr. Rawls on 08-31-2022 Culture, urine Positive [facility] Basophil percentageOrdered B y: Dr. Forde on 08-31-2022 Basophil percentage 221 mg/dL 74-106 [facility] Basophil percentage 137 mmol/L 136-145 [facility] Basophil percentage 3.7 mmol/L 3.5-5.1 [facility] Basophil percentage 108 mmol/L 98-107 [facility] Basophils (Bld) [#/Vol] 6.8 10*3/uL 4.4-11.0 [facility] Basophils (Bld) [#/Vol] 4.4 10*3/uL 2.0-7.7 [facility] Basophils/100 WBC (Bld) 0.7 % 0-1 [facility] Basophils/100 WBC (Bld) 64.6 % 47-70 [facility] Basophils/100 WBC (Bld) 1.3 % 0-5 [facility] Chloride [Moles/Vol] 108 mmol/L 98-107 [facility] Eosinophils/100 WBC (Bld) 1.3 % 0-5 [facility] Glucose [Mass/Vol] 221 mg/dL 74-106 [facility] Comment on above: Glucose result great er than or equal to 200 mg/dLsuggests DIABETES MELLITUS per A.D.A. criteria. Neutrophils (Bld) [#/Vol] 4.4 10*3/uL 2.0-7.7 [facility] Neutrophils/100 WBC (Bld) 64.6 % 47-70 [facility] Potassium [Moles/Vol] 3.7 mmol/L 3.5-5.1 [facility] Sodium [Moles/Vol] 137 mmol/L 136-145 [facility] WBC (Bld) [#/Vol] 6.8 10*3/uL 4.4-11.0 [facility] Blood erythrocytes count (nu mber/volume)Ordered By: Dr. Forde on 08-31-2022 RBC (Bld) [#/Vol] 4.86 10*6/uL 4.2-5.4 [facility] Blood hemoglobin measurement (mass/volume)Ordered By: Dr. Forde on 08-31-2022 Hemoglobin (Bld) [Mass/Vol] 13.6 g/dL 12.0-15.0 [facility] Blood lymphocytes/100 leukoc ytesOrdered By: Dr. Forde on 08-31-2022 Lymphocytes/100 WBC (Bld) 26.6 % 19-41 [facility] Blood monocytes/100 leukocyt esOrdered By: Dr. Forde on 08-31-2022 Monocytes/100 WBC (Bld) 6.5 % 0-10 [facility] Blood platelet mean volumeOr dered By: Dr. Forde on 08-31-2022 Platelet mean volume (Bld) [Entitic vol] 9.1 fL 6.2-12.0 [facility] Culture, urineOrdered By: Dr Carmelo Rawls on 08-31-2022 Bacteria identified Cx Nom (U) Positive [facility] Determination of erythrocyte mean corpuscular volume (MCV)Ordered By: Dr. Forde on 08-31-2022 MCV (RBC) [Entitic vol] 85.4 fL 81-99 [facility] Hematocrit Auto (Bld) [Volum e fraction]Ordered By: Dr. Forde on 08-31-2022 Hematocrit (Bld) [Volume fraction] 41.5 % 37-47 [facility] Laboratory - Chemistry and C hemistry - challengeOrdered By: Dr. Forde on 08-31-2022 CO2 [Moles/Vol] 26.0 mmol/L 21.0-32.0 [facility] Urea nitrogen/Creatinine [Mass ratio] 14.6 mg/mg 10-20 [facility] Laboratory - Hematology and Cell countsOrdered By: Dr. Forde on 08-31-2022 Erythrocyte distribution width (RBC) [Entitic vol] 39.9 fL 35.1-43.9 [facility] Erythrocyte distribution width (RBC) [Ratio] 13.0 % 11.6-14.6 [facility] Immature granulocytes/100 WBC (Bld) 0.300 % 0.0-0.9 [facility] Comment on above: IG% - Immature Granu locytes (promyelocytes, myelocytes and metamyelocytes) > 1% indicates that a LEFT SHIFT is Present. MCH (RBC) [Entitic mass] 28.0 pg 27.0-32.0 [facility] Nucleated RBC/100 WBC (Bld) [Ratio] 0 % 0-5 [facility] MCHC Auto (RBC) [Mass/Vol]Or dered By: Dr. Forde on 08-31-2022 MCHC (RBC) [Mass/Vol] 32.8 g/dL 32-36 [facility] No Panel InformationOrdered By: Dr. Forde on 08-31-2022 Estimated Creatinine Clearance Calc 104.39 ml/min [facility] Estimated GFR (MDRD) Amer 131 mL/min >60 [facility] Comment on above: GFR Calc Estimated GFR (MDRD) Non-Af Amer 109 mL/min >60 [facility] Comment on above: Non- GFR Calc 28.0 pg 27.0-32.0 [facility] 13.0 % 11.6-14.6 [facility] 39.9 fl 35.1-43.9 [facility] 0.300 % 0.0-0.9 [facility] 0 % 0-5 [facility] 109 mL/min >60 [facility] 131 mL/min >60 [facility] 104.39 ml/min [facility] 14.6 RATIO 10-20 [facility] 26.0 mmol/L 21.0-32.0 [facility] Platelets bldOrdered By: Dr. Forde on 08-31-2022 Platelets (Bld) [#/Vol] 227 10*3/uL 150-450 [facility] Serum or plasma calcium xiomara urement (mass/volume)Ordered By: Dr. Forde on 08-31-2022 Calcium [Mass/Vol] 8.8 mg/dL 8.5-10.1 [facility] Serum or plasma creatinine m easurement (mass/volume)Ordered By: Dr. Forde on 08-31-2022 Creatinine [Mass/Vol] 0.62 mg/dL 0.55-1.02 [facility] Comment on above: The validity of the calculated GFR & GFRAA in patients over 70 years has not been determined. Clinical correlation is essential. Serum or plasma urea nitroge n measurement (mass/volume)Ordered By: Dr. Forde on 08-31-2022 Urea nitrogen [Mass/Vol] 9 mg/dL 7-18 [facility] Thin prep Papanicolaou smear with manual screeningOrdered By: Dr. Forde on 08-31-2022 Thin prep Papanicolaou smear with manual screening 3 5-15 [facility] Absolute lymphocyte countOrd ered By: Dr. Rawls on 08-30-2022 Lymphocytes Auto (Unsp spec) [#/Vol] 1.33 10*3/uL 0.83-4.51 [facility] Basophil percentageOrdered B y: Dr. Rawls on 08-30-2022 Basophil percentage 1.1 mmol/L 0.4-2.0 [facility] Lactate [Moles/Vol] 1.1 mmol/L 0.4-2.0 [facility] Basophil percentage 7.1 g/dL 6.4-8.2 [facility] Basophil percentage 0.70 mg/dL 0.20-1.00 [facility] Basophils/100 WBC (Bld) 0.6 % 0-1 [facility] Bilirubin [Mass/Vol] 0.70 mg/dL 0.20-1.00 [facility] Comment on above: For patients on eltr ombopag therapy, use of Dimension [employer] TBIL is not recommended. Chloride [Moles/Vol] 96 mmol/L 98-107 [facility] Eosinophils/100 WBC (Bld) 0.5 % 0-5 [facility] Glucose [Mass/Vol] 400 mg/dL 74-106 [facility] Comment on above: Glucose result great er than or equal to 200 mg/dLsuggests DIABETES MELLITUS per A.D.A. criteria. Lactate [Moles/Vol] 2.2 mmol/L 0.4-2.0 [facility] Comment on above: Critical Result(s) C alled at: 15:31:02 08/30/2022 by: Eileen Mauricio [facility] Results read back by same. Neutrophils (Bld) [#/Vol] 6.7 10*3/uL 2.0-7.7 [facility] Neutrophils/100 WBC (Bld) 77.4 % 47-70 [facility] Potassium [Moles/Vol] 4.0 mmol/L 3.5-5.1 [facility] Protein [Mass/Vol] 7.1 g/dL 6.4-8.2 [facility] Sodium [Moles/Vol] 132 mmol/L 136-145 [facility] WBC (Bld) [#/Vol] 8.6 10*3/uL 4.4-11.0 [facility] Blood erythrocytes count (nu mber/volume)Ordered By: Dr. Rawls on 08-30-2022 RBC (Bld) [#/Vol] 5.43 10*6/uL 4.2-5.4 [facility] Blood hemoglobin measurement (mass/volume)Ordered By: Dr. Rawls on 08-30-2022 Hemoglobin (Bld) [Mass/Vol] 15.0 g/dL 12.0-15.0 [facility] Blood lymphocytes/100 leukoc ytesOrdered By: Dr. Rawls on 08-30-2022 Lymphocytes/100 WBC (Bld) 15.4 % 19-41 [facility] Blood monocytes/100 leukocyt esOrdered By: Dr. Rawls on 08-30-2022 Monocytes/100 WBC (Bld) 5.9 % 0-10 [facility] Blood platelet mean volumeOr dered By: Dr. Rawls on 08-30-2022 Platelet mean volume (Bld) [Entitic vol] 9.1 fL 6.2-12.0 [facility] Determination of erythrocyte mean corpuscular volume (MCV)Ordered By: Dr. Rawls on 08-30-2022 MCV (RBC) [Entitic vol] 83.6 fL 81-99 [facility] Hematocrit Auto (Bld) [Volum e fraction]Ordered By: Dr. Rawls on 08-30-2022 Hematocrit (Bld) [Volume fraction] 45.4 % 37-47 [facility] INR in Blood by Coagulation assayOrdered By: Dr. Rawls on 08-30-2022 INR Coag (Bld) [Relative time] 1.0 {INR} [facility] Laboratory - Chemistry and C hemistry - challengeOrdered By: Dr. Rawls on 08-30-2022 ALP [Catalytic activity/Vol] 133 U/L 45-117 [facility] ALT [Catalytic activity/Vol] 17 U/L 13-56 [facility] CO2 [Moles/Vol] 31.0 mmol/L 21.0-32.0 [facility] Globulin (S) [Mass/Vol] 4.1 g/dL 2.2-4.2 [facility] Urea nitrogen/Creatinine [Mass ratio] 10.1 mg/mg 10-20 [facility] Laboratory - CoagulationOrde red By: Dr. Rawls on 08-30-2022 aPTT Coag (Bld) [Time] 26.7 s 24.1-36.2 [facility] PT Coag (PPP) [Time] 12.6 s 11.7-14.9 [facility] Laboratory - Hematology and Cell countsOrdered By: Dr. Rawls on 08-30-2022 Erythrocyte distribution width (RBC) [Entitic vol] 39.0 fL 35.1-43.9 [facility] Erythrocyte distribution width (RBC) [Ratio] 12.9 % 11.6-14.6 [facility] Immature granulocytes/100 WBC (Bld) 0.200 % 0.0-0.9 [facility] Comment on above: IG% - Immature Granu locytes (promyelocytes, myelocytes and metamyelocytes) > 1% indicates that a LEFT SHIFT is Present. MCH (RBC) [Entitic mass] 27.6 pg 27.0-32.0 [facility] Nucleated RBC/100 WBC (Bld) [Ratio] 0 % 0-5 [facility] MCHC Auto (RBC) [Mass/Vol]Or dered By: Dr. Rawls on 08-30-2022 MCHC (RBC) [Mass/Vol] 33.0 g/dL 32-36 [facility] No Panel InformationOrdered By: Dr. Rawls on 08-30-2022 Estimated Creatinine Clearance Calc 65.38 ml/min [facility] Estimated GFR (MDRD) Amer 76 mL/min >60 [facility] Comment on above: GFR Calc Estimated GFR (MDRD) Non-Af Amer 63 mL/min >60 [facility] Comment on above: Non- GFR Calc 12.6 SECONDS 11.7-14.9 [facility] 26.7 Seconds 24.1-36.2 [facility] 4.1 g/dL 2.2-4.2 [facility] 133 U/L 45-117 [facility] 17 U/L 13-56 [facility] Platelets bldOrdered By: Dr. Rawls on 08-30-2022 Platelets (Bld) [#/Vol] 266 10*3/uL 150-450 [facility] Serum or plasma albumin xiomara urement (mass/volume)Ordered By: Dr. Rawls on 08-30-2022 Albumin [Mass/Vol] 3.0 g/dL 3.2-5.0 [facility] Serum or plasma albumin/glob ulin mass ratioOrdered By: Dr. Rawls on 08-30-2022 Albumin/Globulin [Mass ratio] 0.7 {ratio} 0.9-2.4 [facility] Serum or plasma calcium xiomara urement (mass/volume)Ordered By: Dr. Rawls on 08-30-2022 Calcium [Mass/Vol] 9.1 mg/dL 8.5-10.1 [facility] Serum or plasma creatinine m easurement (mass/volume)Ordered By: Dr. Rawls on 08-30-2022 Creatinine [Mass/Vol] 0.99 mg/dL 0.55-1.02 [facility] Comment on above: The validity of the calculated GFR & GFRAA in patients over 70 years has not been determined. Clinical correlation is essential. Serum or plasma urea nitroge n measurement (mass/volume)Ordered By: Dr. Rawls on 08-30-2022 Urea nitrogen [Mass/Vol] 10 mg/dL 7-18 [facility] Thin prep Papanicolaou smear with manual screeningOrdered By: Dr. Rawls on 08-30-2022 Thin prep Papanicolaou smear with manual screening 15 U/L 15-37 [facility] Thin prep Papanicolaou smear with manual screening 5 5-15 [facility] Whole blood hemoglobin A1c/t otal hemoglobin ratio (mass fraction)Ordered By: Dr. Forde on 08-30-2022 HbA1c (Bld) [Mass fraction] 11.5 % 3.8-5.6 [facility] Comment on above: Normal < 5.7 % Predi abetic 5.7 - 6.4 % Diabetic >or= 6.5 % Please note range changes. Absolute lymphocyte countOrd ered By: Dr. Black on 08-14-2022 Lymphocytes Auto (Unsp spec) [#/Vol] 1.35 10*3/uL 0.83-4.51 [facility] Basophil percentageOrdered B y: Dr. Black on 08-14-2022 Basophil percentage 331 mg/dL 74-106 [facility] Basophil percentage 134 mmol/L 136-145 [facility] Basophil percentage 3.7 mmol/L 3.5-5.1 [facility] Basophil percentage 101 mmol/L 98-107 [facility] Basophils (Bld) [#/Vol] 9.7 10*3/uL 4.4-11.0 [facility] Basophils (Bld) [#/Vol] 7.6 10*3/uL 2.0-7.7 [facility] Basophils/100 WBC (Bld) 0.6 % 0-1 [facility] Basophils/100 WBC (Bld) 78.3 % 47-70 [facility] Basophils/100 WBC (Bld) 0.8 % 0-5 [facility] Chloride [Moles/Vol] 101 mmol/L 98-107 [facility] Eosinophils/100 WBC (Bld) 0.8 % 0-5 [facility] Glucose [Mass/Vol] 331 mg/dL 74-106 [facility] Comment on above: Glucose result great er than or equal to 200 mg/dLsuggests DIABETES MELLITUS per A.D.A. criteria. Neutrophils (Bld) [#/Vol] 7.6 10*3/uL 2.0-7.7 [facility] Neutrophils/100 WBC (Bld) 78.3 % 47-70 [facility] Potassium [Moles/Vol] 3.7 mmol/L 3.5-5.1 [facility] Comment on above: Slight Hemolysis, Re sult may be falsely increased. Sodium [Moles/Vol] 134 mmol/L 136-145 [facility] WBC (Bld) [#/Vol] 9.7 10*3/uL 4.4-11.0 [facility] Blood erythrocytes count (nu mber/volume)Ordered By: Dr. Black on 08-14-2022 RBC (Bld) [#/Vol] 5.16 10*6/uL 4.2-5.4 [facility] Blood hemoglobin measurement (mass/volume)Ordered By: Dr. Black on 08-14-2022 Hemoglobin (Bld) [Mass/Vol] 14.6 g/dL 12.0-15.0 [facility] Blood lymphocytes/100 leukoc ytesOrdered By: Dr. Black on 08-14-2022 Lymphocytes/100 WBC (Bld) 13.9 % 19-41 [facility] Blood monocytes/100 leukocyt esOrdered By: Dr. Black on 08-14-2022 Monocytes/100 WBC (Bld) 5.8 % 0-10 [facility] Blood platelet mean volumeOr dered By: Dr. Black on 08-14-2022 Platelet mean volume (Bld) [Entitic vol] 9.8 fL 6.2-12.0 [facility] Comment on above: FIBRIN NOTED Determination of erythrocyte mean corpuscular volume (MCV)Ordered By: Dr. Black on 08-14-2022 MCV (RBC) [Entitic vol] 83.5 fL 81-99 [facility] Hematocrit Auto (Bld) [Volum e fraction]Ordered By: Dr. Black on 08-14-2022 Hematocrit (Bld) [Volume fraction] 43.1 % 37-47 [facility] Laboratory - Chemistry and C hemistry - challengeOrdered By: Dr. Black on 08-14-2022 CO2 [Moles/Vol] 27.0 mmol/L 21.0-32.0 [facility] Urea nitrogen/Creatinine [Mass ratio] 8.6 mg/mg 10-20 [facility] Laboratory - Hematology and Cell countsOrdered By: Dr. Black on 08-14-2022 Erythrocyte distribution width (RBC) [Entitic vol] 37.5 fL 35.1-43.9 [facility] Erythrocyte distribution width (RBC) [Ratio] 12.3 % 11.6-14.6 [facility] Immature granulocytes/100 WBC (Bld) 0.600 % 0.0-0.9 [facility] Comment on above: IG% - Immature Granu locytes (promyelocytes, myelocytes and metamyelocytes) > 1% indicates that a LEFT SHIFT is Present. MCH (RBC) [Entitic mass] 28.3 pg 27.0-32.0 [facility] Nucleated RBC/100 WBC (Bld) [Ratio] 0.2 % 0-5 [facility] MCHC Auto (RBC) [Mass/Vol]Or dered By: Dr. Black on 08-14-2022 MCHC (RBC) [Mass/Vol] 33.9 g/dL 32-36 [facility] No Panel InformationOrdered By: Dr. Black on 08-14-2022 Estimated Creatinine Clearance Calc 62.33 ml/min [facility] Estimated GFR (MDRD) Amer 71 mL/min >60 [facility] Comment on above: GFR Calc Estimated GFR (MDRD) Non-Af Amer 59 mL/min >60 [facility] Comment on above: Non- GFR Calc 28.3 pg 27.0-32.0 [facility] 12.3 % 11.6-14.6 [facility] 37.5 fl 35.1-43.9 [facility] 0.600 % 0.0-0.9 [facility] 0.2 % 0-5 [facility] 59 mL/min >60 [facility] 71 mL/min >60 [facility] 62.33 ml/min [facility] 8.6 RATIO 10-20 [facility] 27.0 mmol/L 21.0-32.0 [facility] Platelets bldOrdered By: Dr. Black on 08-14-2022 Platelets (Bld) [#/Vol] 220 10*3/uL 150-450 [facility] Serum or plasma calcium xiomara urement (mass/volume)Ordered By: Dr. Black on 08-14-2022 Calcium [Mass/Vol] 8.9 mg/dL 8.5-10.1 [facility] Serum or plasma creatinine m easurement (mass/volume)Ordered By: Dr. Black on 08-14-2022 Creatinine [Mass/Vol] 1.05 mg/dL 0.55-1.02 [facility] Comment on above: The validity of the calculated GFR & GFRAA in patients over 70 years has not been determined. Clinical correlation is essential. Serum or plasma urea nitroge n measurement (mass/volume)Ordered By: Dr. Black on 08-14-2022 Urea nitrogen [Mass/Vol] 9 mg/dL 7-18 [facility] Thin prep Papanicolaou smear with manual screeningOrdered By: Dr. Black on 08-14-2022 Thin prep Papanicolaou smear with manual screening 6 5-15 [facility] Beta hCG serum qualOrdered B y: Dr. Ng on 08-10-2022 Beta HCG ( test) Ql Negative [facility] Absolute lymphocyte countOrd ered By: Darlyn Waleska on 08-06-2022 Lymphocytes Auto (Unsp spec) [#/Vol] 1.46 10*3/uL 0.83-4.51 [facility] Basophil percentageOrdered B y: Darlyn Waleska on 08-06-2022 Basophil percentage 290 mg/dL 74-106 [facility] Basophil percentage 136 mmol/L 136-145 [facility] Basophil percentage 3.5 mmol/L 3.5-5.1 [facility] Basophil percentage 101 mmol/L 98-107 [facility] Basophils (Bld) [#/Vol] 8.7 10*3/uL 4.4-11.0 [facility] Basophils (Bld) [#/Vol] 6.5 10*3/uL 2.0-7.7 [facility] Basophils/100 WBC (Bld) 0.8 % 0-1 [facility] Basophils/100 WBC (Bld) 74.5 % 47-70 [facility] Basophils/100 WBC (Bld) 0.7 % 0-5 [facility] Chloride [Moles/Vol] 101 mmol/L 98-107 [facility] Eosinophils/100 WBC (Bld) 0.7 % 0-5 [facility] Glucose [Mass/Vol] 290 mg/dL 74-106 [facility] Comment on above: Glucose result great er than or equal to 200 mg/dLsuggests DIABETES MELLITUS per A.D.A. criteria. Neutrophils (Bld) [#/Vol] 6.5 10*3/uL 2.0-7.7 [facility] Neutrophils/100 WBC (Bld) 74.5 % 47-70 [facility] Potassium [Moles/Vol] 3.5 mmol/L 3.5-5.1 [facility] Sodium [Moles/Vol] 136 mmol/L 136-145 [facility] WBC (Bld) [#/Vol] 8.7 10*3/uL 4.4-11.0 [facility] Blood erythrocytes count (nu mber/volume)Ordered By: Darlyn Galeano on 08-06-2022 RBC (Bld) [#/Vol] 5.62 10*6/uL 4.2-5.4 [facility] Blood hemoglobin measurement (mass/volume)Ordered By: Darlyn Galeano on 08-06-2022 Hemoglobin (Bld) [Mass/Vol] 15.7 g/dL 12.0-15.0 [facility] Blood lymphocytes/100 leukoc ytesOrdered By: Darlyn Galeano on 08-06-2022 Lymphocytes/100 WBC (Bld) 16.8 % 19-41 [facility] Blood monocytes/100 leukocyt esOrdered By: Darlyn Galeano on 08-06-2022 Monocytes/100 WBC (Bld) 6.9 % 0-10 [facility] Blood platelet mean volumeOr dered By: Darlyn Galeano on 08-06-2022 Platelet mean volume (Bld) [Entitic vol] 9.4 fL 6.2-12.0 [facility] Determination of erythrocyte mean corpuscular volume (MCV)Ordered By: Darlyn Galeano on 08-06-2022 MCV (RBC) [Entitic vol] 85.6 fL 81-99 [facility] Hematocrit Auto (Bld) [Volum e fraction]Ordered By: Darlyn Galeano on 08-06-2022 Hematocrit (Bld) [Volume fraction] 48.1 % 37-47 [facility] Laboratory - Chemistry and C hemistry - challengeOrdered By: Darlyn Galeano on 08-06-2022 CO2 [Moles/Vol] 29.0 mmol/L 21.0-32.0 [facility] Urea nitrogen/Creatinine [Mass ratio] 10.4 mg/mg 10-20 [facility] Laboratory - Hematology and Cell countsOrdered By: Darlyn Galeano on 08-06-2022 Erythrocyte distribution width (RBC) [Entitic vol] 38.5 fL 35.1-43.9 [facility] Erythrocyte distribution width (RBC) [Ratio] 12.2 % 11.6-14.6 [facility] Immature granulocytes/100 WBC (Bld) 0.300 % 0.0-0.9 [facility] Comment on above: IG% - Immature Granu locytes (promyelocytes, myelocytes and metamyelocytes) > 1% indicates that a LEFT SHIFT is Present. MCH (RBC) [Entitic mass] 27.9 pg 27.0-32.0 [facility] Nucleated RBC/100 WBC (Bld) [Ratio] 0 % 0-5 [facility] ([facility]BC) [Mass/Vol]Or dered By: Darlyn Galeano on 08-06-2022 MCHC (RBC) [Mass/Vol] 32.6 g/dL 32-36 [facility] No Panel InformationOrdered By: Darlyn Galeano on 08-06-2022 Estimated Creatinine Clearance Calc 85.00 ml/min [facility] Estimated GFR (MDRD) Amer 101 mL/min >60 [facility] Comment on above: GFR Calc Estimated GFR (MDRD) Non-Af Amer 84 mL/min >60 [facility] Comment on above: Non- GFR Calc 27.9 pg 27.0-32.0 [facility] 12.2 % 11.6-14.6 [facility] 38.5 fl 35.1-43.9 [facility] 0.300 % 0.0-0.9 [facility] 0 % 0-5 [facility] 84 mL/min >60 [facility] 101 mL/min >60 [facility] 85.00 ml/min [facility] 10.4 RATIO 10-20 [facility] 29.0 mmol/L 21.0-32.0 [facility] Platelets bldOrdered By: Renee Galeano on 08-06-2022 Platelets (Bld) [#/Vol] 269 10*3/uL 150-450 [facility] Serum or plasma calcium xiomara urement (mass/volume)Ordered By: Darlyn Galeano on 08-06-2022 Calcium [Mass/Vol] 9.0 mg/dL 8.5-10.1 [facility] Serum or plasma creatinine m easurement (mass/volume)Ordered By: Darlyn Galeano on 08-06-2022 Creatinine [Mass/Vol] 0.77 mg/dL 0.55-1.02 [facility] Comment on above: The validity of the calculated GFR & GFRAA in patients over 70 years has not been determined. Clinical correlation is essential. Serum or plasma urea nitroge n measurement (mass/volume)Ordered By: Darlyn Galeano on 08-06-2022 Urea nitrogen [Mass/Vol] 8 mg/dL 7-18 [facility] Thin prep Papanicolaou smear with manual screeningOrdered By: Darlyn Waleska on 08-06-2022 Thin prep Papanicolaou smear with manual screening 6 5-15 [facility] Absolute lymphocyte countOrd ered By: Vidal Alannils on 08-03-2022 Lymphocytes Auto (Unsp spec) [#/Vol] 0.99 10*3/uL 0.83-4.51 [facility] Basophil percentageOrdered B y: Vidal Solorio on 08-03-2022 Basophil percentage 0-5 SEEN /hpf 0-5 [facility] Basophil percentage 270 mg/dL 74-106 [facility] Basophil percentage 7.6 g/dL 6.4-8.2 [facility] Basophil percentage 1.10 mg/dL 0.20-1.00 [facility] Basophil percentage 135 mmol/L 136-145 [facility] Basophil percentage 4.5 mmol/L 3.5-5.1 [facility] Basophil percentage 99 mmol/L 98-107 [facility] Basophils (Bld) [#/Vol] 12.4 10*3/uL 4.4-11.0 [facility] Basophils (Bld) [#/Vol] 10.8 10*3/uL 2.0-7.7 [facility] Basophils/100 WBC (Bld) 0.6 % 0-1 [facility] Basophils/100 WBC (Bld) 87.4 % 47-70 [facility] Basophils/100 WBC (Bld) 0.4 % 0-5 [facility] Bilirubin [Mass/Vol] 1.10 mg/dL 0.20-1.00 [facility] Comment on above: For patients on eltr ombopag therapy, use of Dimension [place]ell TBIL is not recommended. Chloride [Moles/Vol] 99 mmol/L 98-107 [facility] Eosinophils/100 WBC (Bld) 0.4 % 0-5 [facility] Glucose [Mass/Vol] 270 mg/dL 74-106 [facility] Comment on above: Glucose result great er than or equal to 200 mg/dLsuggests DIABETES MELLITUS per A.D.A. criteria. Neutrophils (Bld) [#/Vol] 10.8 10*3/uL 2.0-7.7 [facility] Neutrophils/100 WBC (Bld) 87.4 % 47-70 [facility] Potassium [Moles/Vol] 4.5 mmol/L 3.5-5.1 [facility] Protein [Mass/Vol] 7.6 g/dL 6.4-8.2 [facility] Sodium [Moles/Vol] 135 mmol/L 136-145 [facility] WBC (Bld) [#/Vol] 12.4 10*3/uL 4.4-11.0 [facility] Bilirubin Test strip Ql (U)O rdered By: Vidal Solorio on 08-03-2022 Bilirubin Ql (U) Negative Negative [facility] Blood erythrocytes count (nu mber/volume)Ordered By: Vidal Solorio on 08-03-2022 RBC (Bld) [#/Vol] 5.73 10*6/uL 4.2-5.4 [facility] Blood hemoglobin measurement (mass/volume)Ordered By: Vidal Solorio on 08-03-2022 Hemoglobin (Bld) [Mass/Vol] 16.2 g/dL 12.0-15.0 [facility] Blood lymphocytes/100 leukoc ytesOrdered By: Vidal Solorio on 08-03-2022 Lymphocytes/100 WBC (Bld) 8.0 % 19-41 [facility] Blood monocytes/100 leukocyt esOrdered By: Vidal Solorio on 08-03-2022 Monocytes/100 WBC (Bld) 3.2 % 0-10 [facility] Blood platelet mean volumeOr dered By: Vidal Solorio on 08-03-2022 Platelet mean volume (Bld) [Entitic vol] 9.9 fL 6.2-12.0 [facility] Determination of erythrocyte mean corpuscular volume (MCV)Ordered By: Vidal Solorio on 08-03-2022 MCV (RBC) [Entitic vol] 84.5 fL 81-99 [facility] Hematocrit Auto (Bld) [Volum e fraction]Ordered By: Vidal Solorio on 08-03-2022 Hematocrit (Bld) [Volume fraction] 48.4 % 37-47 [facility] Ketones Test strip Ql (U)Ord ered By: Vidal Solorio on 08-03-2022 Ketones Ql (U) 15 mg/dl Negative [facility] Laboratory - Chemistry and C hemistry - challengeOrdered By: Vidal Solorio on 08-03-2022 ALP [Catalytic activity/Vol] 120 U/L 45-117 [facility] ALT [Catalytic activity/Vol] 15 U/L 13-56 [facility] CO2 [Moles/Vol] 27.0 mmol/L 21.0-32.0 [facility] Globulin (S) [Mass/Vol] 4.5 g/dL 2.2-4.2 [facility] Lipase [Catalytic activity/Vol] 68 U/L 73-393 [facility] Urea nitrogen/Creatinine [Mass ratio] 15.6 mg/mg 10-20 [facility] Laboratory - Hematology and Cell countsOrdered By: Vidal Solorio on 08-03-2022 Erythrocyte distribution width (RBC) [Entitic vol] 37.5 fL 35.1-43.9 [facility] Erythrocyte distribution width (RBC) [Ratio] 12.3 % 11.6-14.6 [facility] Immature granulocytes/100 WBC (Bld) 0.400 % 0.0-0.9 [facility] Comment on above: IG% - Immature Granu locytes (promyelocytes, myelocytes and metamyelocytes) > 1% indicates that a LEFT SHIFT is Present. MCH (RBC) [Entitic mass] 28.3 pg 27.0-32.0 [facility] Nucleated RBC/100 WBC (Bld) [Ratio] 0 % 0-5 [facility] MCHC Auto (RBC) [Mass/Vol]Or dered By: Vidal Solorio on 08-03-2022 MCHC (RBC) [Mass/Vol] 33.5 g/dL 32-36 [facility] Mucus LM Ql (Urine sed)Order ed By: Vidal Solorio on 08-03-2022 Mucus Ql (Urine sed) 0 SEEN /hpf [facility] Nitrite Test strip Ql (U)Ord ered By: Vidal Solorio on 08-03-2022 Nitrite Ql (U) Negative Negative [facility] No Panel InformationOrdered By: Vidal Solorio on 08-03-2022 Troponin I High Sensitivity 12 pg/mL 3.0-54.0 [facility] Comment on above: Please Note: New Junie t Units and Gender Specific Reference Ranges. For more information see Policy Stat Procedure [facility] High Sensitivity Troponin (TNIH) and attachments. 12 pg/mL 3.0-54.0 [facility] Estimated Creatinine Clearance Calc 102.27 ml/min [facility] Estimated GFR (MDRD) Amer 126 mL/min >60 [facility] Comment on above: GFR Calc Estimated GFR (MDRD) Non-Af Amer 104 mL/min >60 [facility] Comment on above: Non- GFR Calc 28.3 pg 27.0-32.0 [facility] 12.3 % 11.6-14.6 [facility] 37.5 fl 35.1-43.9 [facility] 0.400 % 0.0-0.9 [facility] 0 % 0-5 [facility] 104 mL/min >60 [facility] 126 mL/min >60 [facility] 102.27 ml/min [facility] 15.6 RATIO 10-20 [facility] 4.5 g/dL 2.2-4.2 [facility] 68 U/L 73-393 [facility] 120 U/L 45-117 [facility] 15 U/L 13-56 [facility] 27.0 mmol/L 21.0-32.0 [facility] Platelets bldOrdered By: Roxi Solorio on 08-03-2022 Platelets (Bld) [#/Vol] 233 10*3/uL 150-450 [facility] Protein Test strip Ql (U)Ord ered By: Vidal Solorio on 08-03-2022 Protein Ql (U) 100 mg/dl Negative [facility] Serum or plasma albumin xiomara urement (mass/volume)Ordered By: Vidal Solorio on 08-03-2022 Albumin [Mass/Vol] 3.1 g/dL 3.2-5.0 [facility] Serum or plasma albumin/glob ulin mass ratioOrdered By: Vidal Solorio on 08-03-2022 Albumin/Globulin [Mass ratio] 0.7 {ratio} 0.9-2.4 [facility] Serum or plasma calcium xiomara urement (mass/volume)Ordered By: Vidal Solorio on 08-03-2022 Calcium [Mass/Vol] 9.4 mg/dL 8.5-10.1 [facility] Serum or plasma creatinine m easurement (mass/volume)Ordered By: Vidal Solorio on 08-03-2022 Creatinine [Mass/Vol] 0.64 mg/dL 0.55-1.02 [facility] Comment on above: The validity of the calculated GFR & GFRAA in patients over 70 years has not been determined. Clinical correlation is essential. Serum or plasma urea nitroge n measurement (mass/volume)Ordered By: Vidal Solorio on 08-03-2022 Urea nitrogen [Mass/Vol] 10 mg/dL 7-18 [facility] Squamous epithelial cells de tection in urine sediment by light microscopyOrdered By: Vidal Solorio on 08-03-2022 Epithelial cells.squamous LM Ql (Urine sed) 0-5 SEEN /hpf 5-10 [facility] Thin prep Papanicolaou smear with manual screeningOrdered By: Vidal Solorio on 08-03-2022 Thin prep Papanicolaou smear with manual screening 15 U/L 15-37 [facility] Thin prep Papanicolaou smear with manual screening 9 5-15 [facility] Urine blood detectionOrdered By: Vidal Solorio on 08-03-2022 RBC Ql (U) 50 /ul Negative [facility] RBC Ql (U) 0-5 SEEN /hpf 0-5 [facility] Urine clarityOrdered By: Roxi Solorio on 08-03-2022 Clarity (U) Clear Clear [facility] Urine color determinationOrd ered By: Vidal Solorio on 08-03-2022 Color (U) Yellow Yellow [facility] Urine glucose detectionOrder ed By: Vidal Solorio on 08-03-2022 Glucose Ql (U) 1000 mg/dl Normal [facility] Urine leukocyte esterase det ection by dipstickOrdered By: Vidal Solorio on 08-03-2022 Leukocyte esterase Test strip Ql (U) 100 /ul Negative [facility] Urine pHOrdered By: Vidal wray on 08-03-2022 pH (U) 7.0 [pH] 5.0 - 8.0 [facility] Urine sediment bacteria coun t by microscopy (number/high power field)Ordered By: Vidal Solorio on 08-03-2022 Bacteria LM.HPF (Urine sed) [#/Area] 0 /[HPF] None Seen [facility] Urine specific gravity measu rementOrdered By: Vidal Solorio on 08-03-2022 Specific gravity (U) [Rel density] 1.010 1.002-1.03 0 [facility] Urobilinogen Auto test strip Ql (U)Ordered By: Vidal Solorio on 08-03-2022 Urobilinogen Ql (U) Normal mg/dl Normal [facility] Absolute lymphocyte countOrd ered By: Dr. Mcneal on 07-25-2022 Lymphocytes Auto (Unsp spec) [#/Vol] 1.18 10*3/uL 0.83-4.51 [facility] Basophil percentageOrdered B y: Dr. Mcneal on 07-25-2022 Basophil percentage 415 mg/dL 74-106 [facility] Basophil percentage 6.6 g/dL 6.4-8.2 [facility] Basophil percentage 0.40 mg/dL 0.20-1.00 [facility] Basophil percentage 135 mmol/L 136-145 [facility] Basophil percentage 4.1 mmol/L 3.5-5.1 [facility] Basophil percentage 101 mmol/L 98-107 [facility] Bilirubin [Mass/Vol] 0.40 mg/dL 0.20-1.00 [facility] Comment on above: For patients on eltr ombopag therapy, use of Dimension [place] TBIL is not recommended. Chloride [Moles/Vol] 101 mmol/L 98-107 [facility] Glucose [Mass/Vol] 415 mg/dL 74-106 [facility] Comment on above: Glucose result great er than or equal to 200 mg/dLsuggests DIABETES MELLITUS per A.D.A. criteria. Potassium [Moles/Vol] 4.1 mmol/L 3.5-5.1 [facility] Comment on above: Slight Hemolysis, Re sult may be falsely increased. Protein [Mass/Vol] 6.6 g/dL 6.4-8.2 [facility] Sodium [Moles/Vol] 135 mmol/L 136-145 [facility] Basophils (Bld) [#/Vol] 8.6 10*3/uL 4.4-11.0 [facility] Basophils (Bld) [#/Vol] 6.8 10*3/uL 2.0-7.7 [facility] Basophils/100 WBC (Bld) 0.7 % 0-1 [facility] Basophils/100 WBC (Bld) 78.2 % 47-70 [facility] Basophils/100 WBC (Bld) 1.6 % 0-5 [facility] Eosinophils/100 WBC (Bld) 1.6 % 0-5 [facility] Neutrophils (Bld) [#/Vol] 6.8 10*3/uL 2.0-7.7 [facility] Neutrophils/100 WBC (Bld) 78.2 % 47-70 [facility] WBC (Bld) [#/Vol] 8.6 10*3/uL 4.4-11.0 [facility] Blood erythrocytes count (nu mber/volume)Ordered By: Dr. Mcneal on 07-25-2022 RBC (Bld) [#/Vol] 5.96 10*6/uL 4.2-5.4 [facility] Blood hemoglobin measurement (mass/volume)Ordered By: Dr. Mcneal on 07-25-2022 Hemoglobin (Bld) [Mass/Vol] 16.9 g/dL 12.0-15.0 [facility] Blood lymphocytes/100 leukoc ytesOrdered By: Dr. Mcneal on 07-25-2022 Lymphocytes/100 WBC (Bld) 13.7 % 19-41 [facility] Blood monocytes/100 leukocyt esOrdered By: Dr. Mcneal on 07-25-2022 Monocytes/100 WBC (Bld) 5.2 % 0-10 [facility] Blood platelet mean volumeOr dered By: Dr. Mcneal on 07-25-2022 Platelet mean volume (Bld) [Entitic vol] 10.2 fL 6.2-12.0 [facility] Determination of erythrocyte mean corpuscular volume (MCV)Ordered By: Dr. Mcneal on 07-25-2022 MCV (RBC) [Entitic vol] 84.6 fL 81-99 [facility] Hematocrit Auto (Bld) [Volum e fraction]Ordered By: Dr. Mcneal on 07-25-2022 Hematocrit (Bld) [Volume fraction] 50.4 % 37-47 [facility] Laboratory - Chemistry and C hemistry - challengeOrdered By: Dr. Mcneal on 07-25-2022 ALP [Catalytic activity/Vol] 113 U/L 45-117 [facility] ALT [Catalytic activity/Vol] 15 U/L 13-56 [facility] CO2 [Moles/Vol] 27.0 mmol/L 21.0-32.0 [facility] Globulin (S) [Mass/Vol] 4.0 g/dL 2.2-4.2 [facility] Lipase [Catalytic activity/Vol] 104 U/L 73-393 [facility] Urea nitrogen/Creatinine [Mass ratio] 14.9 mg/mg 10-20 [facility] Laboratory - Hematology and Cell countsOrdered By: Dr. Mcneal on 07-25-2022 Erythrocyte distribution width (RBC) [Entitic vol] 38.3 fL 35.1-43.9 [facility] Erythrocyte distribution width (RBC) [Ratio] 12.4 % 11.6-14.6 [facility] Immature granulocytes/100 WBC (Bld) 0.600 % 0.0-0.9 [facility] Comment on above: IG% - Immature Granu locytes (promyelocytes, myelocytes and metamyelocytes) > 1% indicates that a LEFT SHIFT is Present. MCH (RBC) [Entitic mass] 28.4 pg 27.0-32.0 [facility] Nucleated RBC/100 WBC (Bld) [Ratio] 0 % 0-5 [facility] MCHC Auto (RBC) [Mass/Vol]Or dered By: Dr. Mcneal on 07-25-2022 MCHC (RBC) [Mass/Vol] 33.5 g/dL 32-36 [facility] No Panel InformationOrdered By: Dr. Mcneal on 07-25-2022 Estimated Creatinine Clearance Calc 81.81 ml/min [facility] Estimated GFR (MDRD) Amer 97 mL/min >60 [facility] Comment on above: GFR Calc Estimated GFR (MDRD) Non-Af Amer 80 mL/min >60 [facility] Comment on above: Non- GFR Calc Troponin I High Sensitivity 10 pg/mL 3.0-54.0 [facility] Comment on above: Please Note: New Junie t Units and Gender Specific Reference Ranges. For more information see Policy Stat Procedure [facility] High Sensitivity Troponin (TNIH) and attachments. 80 mL/min >60 [facility] 97 mL/min >60 [facility] 81.81 ml/min [facility] 14.9 RATIO 10-20 [facility] 4.0 g/dL 2.2-4.2 [facility] 104 U/L 73-393 [facility] 10 pg/mL 3.0-54.0 [facility] 113 U/L 45-117 [facility] 15 U/L 13-56 [facility] 27.0 mmol/L 21.0-32.0 [facility] 28.4 pg 27.0-32.0 [facility] 12.4 % 11.6-14.6 [facility] 38.3 fl 35.1-43.9 [facility] 0.600 % 0.0-0.9 [facility] 0 % 0-5 [facility] Platelets bldOrdered By: Dr. Mcneal on 07-25-2022 Platelets (Bld) [#/Vol] 163 10*3/uL 150-450 [facility] Serum or plasma albumin xiomara urement (mass/volume)Ordered By: Dr. Mcneal on 07-25-2022 Albumin [Mass/Vol] 2.6 g/dL 3.2-5.0 [facility] Serum or plasma albumin/glob ulin mass ratioOrdered By: Dr. Mcneal on 07-25-2022 Albumin/Globulin [Mass ratio] 0.6 {ratio} 0.9-2.4 [facility] Serum or plasma calcium xiomara urement (mass/volume)Ordered By: Dr. Mcneal on 07-25-2022 Calcium [Mass/Vol] 8.6 mg/dL 8.5-10.1 [facility] Serum or plasma creatinine m easurement (mass/volume)Ordered By: Dr. Mcneal on 07-25-2022 Creatinine [Mass/Vol] 0.80 mg/dL 0.55-1.02 [facility] Comment on above: The validity of the calculated GFR & GFRAA in patients over 70 years has not been determined. Clinical correlation is essential. Serum or plasma urea nitroge n measurement (mass/volume)Ordered By: Dr. Mcneal on 07-25-2022 Urea nitrogen [Mass/Vol] 12 mg/dL 7-18 [facility] Thin prep Papanicolaou smear with manual screeningOrdered By: Dr. Mcneal on 07-25-2022 Thin prep Papanicolaou smear with manual screening 17 U/L 15-37 [facility] Comment on above: Slight Hemolysis, Re sult may be falsely increased. Thin prep Papanicolaou smear with manual screening 7 5-15 [facility] Absolute lymphocyte countOrd ered By: ED PROVIDER on 05-19-2022 Lymphocytes Auto (Unsp spec) [#/Vol] 1.58 10*3/uL 0.83-4.51 [facility] Basophil percentageOrdered B y: ED PROVIDER on 05-19-2022 Basophil percentage 402 mg/dL 74-106 [facility] Basophil percentage 131 mmol/L 136-145 [facility] Basophil percentage 4.5 mmol/L 3.5-5.1 [facility] Basophil percentage 97 mmol/L 98-107 [facility] Basophils (Bld) [#/Vol] 11.3 10*3/uL 4.4-11.0 [facility] Basophils (Bld) [#/Vol] 9.1 10*3/uL 2.0-7.7 [facility] Basophils/100 WBC (Bld) 0.7 % 0-1 [facility] Basophils/100 WBC (Bld) 79.9 % 47-70 [facility] Basophils/100 WBC (Bld) 1.0 % 0-5 [facility] Chloride [Moles/Vol] 97 mmol/L 98-107 [facility] Eosinophils/100 WBC (Bld) 1.0 % 0-5 [facility] Glucose [Mass/Vol] 402 mg/dL 74-106 [facility] Comment on above: Glucose result great er than or equal to 200 mg/dLsuggests DIABETES MELLITUS per A.D.A. criteria. Neutrophils (Bld) [#/Vol] 9.1 10*3/uL 2.0-7.7 [facility] Neutrophils/100 WBC (Bld) 79.9 % 47-70 [facility] Potassium [Moles/Vol] 4.5 mmol/L 3.5-5.1 [facility] Comment on above: Moderate Hemolysis, Result may be falsely increased. Sodium [Moles/Vol] 131 mmol/L 136-145 [facility] WBC (Bld) [#/Vol] 11.3 10*3/uL 4.4-11.0 [facility] Beta hCG serum qualOrdered B y: ED PROVIDER on 05-19-2022 Beta HCG ( test) Ql Negative [facility] Blood erythrocytes count (nu mber/volume)Ordered By: ED PROVIDER on 05-19-2022 RBC (Bld) [#/Vol] 5.80 10*6/uL 4.2-5.4 [facility] Blood hemoglobin measurement (mass/volume)Ordered By: ED PROVIDER on 05-19-2022 Hemoglobin (Bld) [Mass/Vol] 16.2 g/dL 12.0-15.0 [facility] Blood lymphocytes/100 leukoc ytesOrdered By: ED PROVIDER on 05-19-2022 Lymphocytes/100 WBC (Bld) 13.9 % 19-41 [facility] Blood monocytes/100 leukocyt esOrdered By: ED PROVIDER on 05-19-2022 Monocytes/100 WBC (Bld) 4.0 % 0-10 [facility] Blood platelet mean volumeOr dered By: ED PROVIDER on 05-19-2022 Platelet mean volume (Bld) [Entitic vol] 9.7 fL 6.2-12.0 [facility] Determination of erythrocyte mean corpuscular volume (MCV)Ordered By: ED PROVIDER on 05-19-2022 MCV (RBC) [Entitic vol] 84.3 fL 81-99 [facility] Hematocrit Auto (Bld) [Volum e fraction]Ordered By: ED PROVIDER on 05-19-2022 Hematocrit (Bld) [Volume fraction] 48.9 % 37-47 [facility] Laboratory - Chemistry and C hemistry - challengeOrdered By: ED PROVIDER on 05-19-2022 CO2 [Moles/Vol] 28.0 mmol/L 21.0-32.0 [facility] Urea nitrogen/Creatinine [Mass ratio] 10.2 mg/mg 10- [facility] Laboratory - Hematology and Cell countsOrdered By: ED PROVIDER on 05-19-2022 Erythrocyte distribution width (RBC) [Entitic vol] 41.3 fL 35.1-43.9 [facility] Erythrocyte distribution width (RBC) [Ratio] 13.5 % 11.6-14.6 [facility] Immature granulocytes/100 WBC (Bld) 0.500 % 0.0-0.9 [facility] Comment on above: IG% - Immature Granu locytes (promyelocytes, myelocytes and metamyelocytes) > 1% indicates that a LEFT SHIFT is Present. MCH (RBC) [Entitic mass] 27.9 pg 27.0-32.0 [facility] Nucleated RBC/100 WBC (Bld) [Ratio] 0 % 0-5 [facility] MCHC Auto (RBC) [Mass/Vol]Or dered By: ED PROVIDER on 05-19-2022 MCHC (RBC) [Mass/Vol] 33.1 g/dL 32-36 [facility] No Panel InformationOrdered By: ED PROVIDER on 05-19-2022 Estimated Creatinine Clearance Calc 83.91 ml/min [facility] Estimated GFR (MDRD) Amer 100 mL/min >60 [facility] Comment on above: GFR Calc Estimated GFR (MDRD) Non-Af Amer 82 mL/min >60 [facility] Comment on above: Non- GFR Calc 27.9 pg 27.0-32.0 [facility] 13.5 % 11.6-14.6 [facility] [facility] 41.3 fl 35.1-43.9 [facility] 0.500 % 0.0-0.9 [facility] 0 % 0-5 [facility] 82 mL/min >60 [facility] 100 mL/min >60 [facility] 83.91 ml/min [facility] 10.2 RATIO 10- [facility] 28.0 mmol/L 21.0-32.0 [facility] Platelets bldOrdered By: ED PROVIDER on 05-19-2022 Platelets (Bld) [#/Vol] 260 10*3/uL 150-450 [facility] Serum or plasma calcium xiomara urement (mass/volume)Ordered By: ED PROVIDER on 05-19-2022 Calcium [Mass/Vol] 9.2 mg/dL 8.5-10.1 [facility] Serum or plasma creatinine m easurement (mass/volume)Ordered By: ED PROVIDER on 05-19-2022 Creatinine [Mass/Vol] 0.78 mg/dL 0.55-1.02 [facility] Comment on above: The validity of the calculated GFR & GFRAA in patients over 70 years has not been determined. Clinical correlation is essential. Serum or plasma urea nitroge n measurement (mass/volume)Ordered By: ED PROVIDER on 05-19-2022 Urea nitrogen [Mass/Vol] 8 mg/dL 7-18 [facility] Thin prep Papanicolaou smear with manual screeningOrdered By: ED PROVIDER on 05-19-2022 Thin prep Papanicolaou smear with manual screening 6 5-15 [facility] Absolute lymphocyte countOrd ered By: Conor Martin on 05-09-2022 Lymphocytes Auto (Unsp spec) [#/Vol] 0.43 10*3/uL 0.83-4.51 [facility] Basophil percentageOrdered B y: Conor Martin on 05-09-2022 Basophils/100 WBC (Bld) 0.4 % 0-1 [facility] Bilirubin [Mass/Vol] 1.40 mg/dL 0.20-1.00 [facility] Comment on above: For patients on eltr ombopag therapy, use of Dimension Chappell TBIL is not recommended. Chloride [Moles/Vol] 100 mmol/L 98-107 [facility] Eosinophils/100 WBC (Bld) 0.8 % 0-5 [facility] Glucose [Mass/Vol] 364 mg/dL 74-106 [facility] Comment on above: Glucose result great er than or equal to 200 mg/dLsuggests DIABETES MELLITUS per A.D.A. criteria. Neutrophils (Bld) [#/Vol] 9.6 10*3/uL 2.0-7.7 [facility] Neutrophils/100 WBC (Bld) 89.6 % 47-70 [facility] Potassium [Moles/Vol] 4.6 mmol/L 3.5-5.1 [facility] Comment on above: Moderate Hemolysis, Result may be falsely increased. Protein [Mass/Vol] 7.7 g/dL 6.4-8.2 [facility] Sodium [Moles/Vol] 133 mmol/L 136-145 [facility] WBC (Bld) [#/Vol] 10.7 10*3/uL 4.4-11.0 [facility] Blood erythrocytes count (nu mber/volume)Ordered By: Conor Martin on 05-09-2022 RBC (Bld) [#/Vol] 5.49 10*6/uL 4.2-5.4 [facility] Blood hemoglobin measurement (mass/volume)Ordered By: Conor Martin on 05-09-2022 Hemoglobin (Bld) [Mass/Vol] 15.5 g/dL 12.0-15.0 [facility] Blood lymphocytes/100 leukoc ytesOrdered By: Conor Martin on 05-09-2022 Lymphocytes/100 WBC (Bld) 4.0 % 19-41 [facility] Blood manual differential co mment interpretation (narrative result)Ordered By: Conor Martin on 05-09-2022 Manual differential comment Main (Bld) [Interp] SCANNED [facility] Comment on above: LYMPHOPENIA NOTED Blood monocytes/100 leukocyt esOrdered By: Conor Martin on 05-09-2022 Monocytes/100 WBC (Bld) 4.8 % 0-10 [facility] Blood platelet mean volumeOr dered By: Conor Martin on 05-09-2022 Platelet mean volume (Bld) [Entitic vol] 9.6 fL 6.2-12.0 [facility] Determination of erythrocyte mean corpuscular volume (MCV)Ordered By: Conor Martin on 05-09-2022 MCV (RBC) [Entitic vol] 84.9 fL 81-99 [facility] Direct bilirubinOrdered By: Conor Martin on 05-09-2022 Bilirubin.direct [Mass/Vol] 0.18 mg/dL 0.00-0.30 [facility] Hematocrit Auto (Bld) [Volum e fraction]Ordered By: Conor Martin on 05-09-2022 Hematocrit (Bld) [Volume fraction] 46.6 % 37-47 [facility] Influenza virus A and B and SARS-CoV-2 (COVID-19) Ag panel - Upper respiratory specimOrdered By: Conor Martin on 05-09-2022 SARS-CoV-2 & FLU Antigen (Rapid) Influenzae A [facility] Laboratory - Chemistry and C hemistry - challengeOrdered By: Conor Martin on 05-09-2022 ALP [Catalytic activity/Vol] 142 U/L 45-117 [facility] ALT [Catalytic activity/Vol] 17 U/L 13-56 [facility] CO2 [Moles/Vol] 29.0 mmol/L 21.0-32.0 [facility] Globulin (S) [Mass/Vol] 4.5 g/dL 2.2-4.2 [facility] Lipase [Catalytic activity/Vol] 89 U/L 73-393 [facility] Urea nitrogen/Creatinine [Mass ratio] 15.2 mg/mg 10-20 [facility] Laboratory - Hematology and Cell countsOrdered By: Conor Martin on 05-09-2022 Erythrocyte distribution width (RBC) [Entitic vol] 41.5 fL 35.1-43.9 [facility] Erythrocyte distribution width (RBC) [Ratio] 13.5 % 11.6-14.6 [facility] Immature granulocytes/100 WBC (Bld) 0.400 % 0.0-0.9 [facility] Comment on above: IG% - Immature Granu locytes (promyelocytes, myelocytes and metamyelocytes) > 1% indicates that a LEFT SHIFT is Present. MCH (RBC) [Entitic mass] 28.2 pg 27.0-32.0 [facility] Nucleated RBC/100 WBC (Bld) [Ratio] 0 % 0-5 [facility] MCHC Auto (RBC) [Mass/Vol]Or dered By: Conor Martin on 05-09-2022 MCHC (RBC) [Mass/Vol] 33.3 g/dL 32-36 [facility] No Panel InformationOrdered By: Conor Martin on 05-09-2022 Estimated Creatinine Clearance Calc 90.90 ml/min [facility] Estimated GFR (MDRD) Amer 110 mL/min >60 [facility] Comment on above: GFR Calc Estimated GFR (MDRD) Non-Af Amer 91 mL/min >60 [facility] Comment on above: Non- GFR Calc Platelets bldOrdered By: Jose Martin on 05-09-2022 Platelets (Bld) [#/Vol] 289 10*3/uL 150-450 [facility] Serum or plasma acetone xiomara urement (mass/volume)Ordered By: Conor Martin on 05-09-2022 Acetone [Mass/Vol] Negative NEG [facility] Serum or plasma albumin xiomara urement (mass/volume)Ordered By: Conor Martin on 05-09-2022 Albumin [Mass/Vol] 3.2 g/dL 3.2-5.0 [facility] Serum or plasma calcium xiomara urement (mass/volume)Ordered By: Conor Martin on 05-09-2022 Calcium [Mass/Vol] 9.4 mg/dL 8.5-10.1 [facility] Serum or plasma creatinine m easurement (mass/volume)Ordered By: Conor Martin on 05-09-2022 Creatinine [Mass/Vol] 0.72 mg/dL 0.55-1.02 [facility] Comment on above: The validity of the calculated GFR & GFRAA in patients over 70 years has not been determined. Clinical correlation is essential. Serum or plasma urea nitroge n measurement (mass/volume)Ordered By: Conor Martin on 05-09-2022 Urea nitrogen [Mass/Vol] 11 mg/dL 7-18 [facility] Thin prep Papanicolaou smear with manual screeningOrdered By: Conor Martin on 05-09-2022 Thin prep Papanicolaou smear with manual screening 21 U/L 15-37 [facility] Comment on above: Moderate Hemolysis, Result may be falsely increased. Thin prep Papanicolaou smear with manual screening 4 5-15 [facility] Progress Noteon 05-02-2022 Progress Note CD UPLOADED. IMAGES IN AGFA. Normal [facility] Absolute lymphocyte countOrd ered By: Dr. Mcneal on 04-17-2022 Lymphocytes Auto (Unsp spec) [#/Vol] 1.46 10*3/uL 0.83-4.51 [facility] Basophil percentageOrdered B y: Dr. Mcneal on 04-17-2022 Basophils/100 WBC (Bld) 0.7 % 0-1 [facility] Bilirubin [Mass/Vol] 1.00 mg/dL 0.20-1.00 [facility] Comment on above: For patients on eltr ombopag therapy, use of Dimension [employer] TBIL is not recommended. Chloride [Moles/Vol] 100 mmol/L 98-107 [facility] Eosinophils/100 WBC (Bld) 1.2 % 0-5 [facility] Glucose [Mass/Vol] 368 mg/dL 74-106 [facility] Comment on above: Glucose result great er than or equal to 200 mg/dLsuggests DIABETES MELLITUS per A.D.A. criteria. Neutrophils (Bld) [#/Vol] 9.0 10*3/uL 2.0-7.7 [facility] Neutrophils/100 WBC (Bld) 79.1 % 47-70 [facility] Potassium [Moles/Vol] 3.5 mmol/L 3.5-5.1 [facility] Protein [Mass/Vol] 6.6 g/dL 6.4-8.2 [facility] Sodium [Moles/Vol] 136 mmol/L 136-145 [facility] WBC (Bld) [#/Vol] 11.4 10*3/uL 4.4-11.0 [facility] Blood erythrocytes count (nu mber/volume)Ordered By: Dr. Mcneal on 04-17-2022 RBC (Bld) [#/Vol] 5.50 10*6/uL 4.2-5.4 [facility] Blood hemoglobin measurement (mass/volume)Ordered By: Dr. Mcneal on 04-17-2022 Hemoglobin (Bld) [Mass/Vol] 15.9 g/dL 12.0-15.0 [facility] Blood lymphocytes/100 leukoc ytesOrdered By: Dr. Mcneal on 04-17-2022 Lymphocytes/100 WBC (Bld) 12.8 % 19-41 [facility] Blood monocytes/100 leukocyt esOrdered By: Dr. Mcneal on 04-17-2022 Monocytes/100 WBC (Bld) 5.9 % 0-10 [facility] Blood platelet mean volumeOr dered By: Dr. Mcneal on 04-17-2022 Platelet mean volume (Bld) [Entitic vol] 9.4 fL 6.2-12.0 [facility] Determination of erythrocyte mean corpuscular volume (MCV)Ordered By: Dr. Mcneal on 04-17-2022 MCV (RBC) [Entitic vol] 83.3 fL 81-99 [facility] Hematocrit Auto (Bld) [Volum e fraction]Ordered By: Dr. Mcneal on 04-17-2022 Hematocrit (Bld) [Volume fraction] 45.8 % 37-47 [facility] Laboratory - Chemistry and C hemistry - challengeOrdered By: Dr. Mcneal on 04-17-2022 ALP [Catalytic activity/Vol] 132 U/L 45-117 [facility] ALT [Catalytic activity/Vol] 31 U/L 13-56 [facility] CO2 [Moles/Vol] 28.0 mmol/L 21.0-32.0 [facility] Globulin (S) [Mass/Vol] 3.6 g/dL 2.2-4.2 [facility] Urea nitrogen/Creatinine [Mass ratio] 7.8 mg/mg 10-20 [facility] Laboratory - Hematology and Cell countsOrdered By: Dr. Mcneal on 04-17-2022 Erythrocyte distribution width (RBC) [Entitic vol] 38.7 fL 35.1-43.9 [facility] Erythrocyte distribution width (RBC) [Ratio] 12.8 % 11.6-14.6 [facility] Immature granulocytes/100 WBC (Bld) 0.300 % 0.0-0.9 [facility] Comment on above: IG% - Immature Granu locytes (promyelocytes, myelocytes and metamyelocytes) > 1% indicates that a LEFT SHIFT is Present. MCH (RBC) [Entitic mass] 28.9 pg 27.0-32.0 [facility] Nucleated RBC/100 WBC (Bld) [Ratio] 0 % 0-5 [facility] MCHC Auto (RBC) [Mass/Vol]Or dered By: Dr. Mcneal on 04-17-2022 MCHC (RBC) [Mass/Vol] 34.7 g/dL 32-36 [facility] No Panel InformationOrdered By: Dr. Mcneal on 04-17-2022 Estimated Creatinine Clearance Calc 85.00 ml/min [facility] Estimated GFR (MDRD) Amer 102 mL/min >60 [facility] Comment on above: GFR Calc Estimated GFR (MDRD) Non-Af Amer 84 mL/min >60 [facility] Comment on above: Non- GFR Calc Platelets bldOrdered By: Dr. Mcneal on 04-17-2022 Platelets (Bld) [#/Vol] 234 10*3/uL 150-450 [facility] Serum or plasma albumin xiomara urement (mass/volume)Ordered By: Dr. Mcneal on 04-17-2022 Albumin [Mass/Vol] 3.0 g/dL 3.2-5.0 [facility] Serum or plasma albumin/glob ulin mass ratioOrdered By: Dr. Mcneal on 04-17-2022 Albumin/Globulin [Mass ratio] 0.8 {ratio} 0.9-2.4 [facility] Serum or plasma calcium xiomara urement (mass/volume)Ordered By: Dr. Mcneal on 04-17-2022 Calcium [Mass/Vol] 9.0 mg/dL 8.5-10.1 [facility] Serum or plasma creatinine m easurement (mass/volume)Ordered By: Dr. Mcneal on 04-17-2022 Creatinine [Mass/Vol] 0.77 mg/dL 0.55-1.02 [facility] Comment on above: The validity of the calculated GFR & GFRAA in patients over 70 years has not been determined. Clinical correlation is essential. Serum or plasma urea nitroge n measurement (mass/volume)Ordered By: Dr. Mcneal on 04-17-2022 Urea nitrogen [Mass/Vol] 6 mg/dL 7-18 [facility] Thin prep Papanicolaou smear with manual screeningOrdered By: Dr. Mcneal on 04-17-2022 Thin prep Papanicolaou smear with manual screening 25 U/L 15-37 [facility] Thin prep Papanicolaou smear with manual screening 8 5-15 [facility] Absolute lymphocyte countOrd ered By: Dr. Abrams on 03-27-2022 Lymphocytes Auto (Unsp spec) [#/Vol] 1.61 10*3/uL 0.83-4.51 [facility] Basophil percentageOrdered B y: Dr. Abrams on 03-27-2022 Basophils/100 WBC (Bld) 0.7 % 0-1 [facility] Bilirubin [Mass/Vol] 1.20 mg/dL 0.20-1.00 [facility] Comment on above: For patients on eltr ombopag therapy, use of Dimension [employer] TBIL is not recommended. Chloride [Moles/Vol] 94 mmol/L 98-107 [facility] Eosinophils/100 WBC (Bld) 1.0 % 0-5 [facility] Glucose [Mass/Vol] 477 mg/dL 74-106 [facility] Comment on above: Critical Result(s) C alled at: 11:26:10 03/27/2022 by: Tc Montana RN (ER). Results read back by same.Glucose result greater than or equal to 200 mg/dLsuggests DIABETES MELLITUS per A.D.A. criteria. Neutrophils (Bld) [#/Vol] 8.9 10*3/uL 2.0-7.7 [facility] Neutrophils/100 WBC (Bld) 80.1 % 47-70 [facility] Potassium [Moles/Vol] 4.5 mmol/L 3.5-5.1 [facility] Protein [Mass/Vol] 7.3 g/dL 6.4-8.2 [facility] Sodium [Moles/Vol] 131 mmol/L 136-145 [facility] WBC (Bld) [#/Vol] 11.2 10*3/uL 4.4-11.0 [facility] Blood erythrocytes count (nu mber/volume)Ordered By: Dr. Abrams on 03-27-2022 RBC (Bld) [#/Vol] 5.95 10*6/uL 4.2-5.4 [facility] Blood hemoglobin measurement (mass/volume)Ordered By: Dr. Abrams on 03-27-2022 Hemoglobin (Bld) [Mass/Vol] 16.6 g/dL 12.0-15.0 [facility] Blood lymphocytes/100 leukoc ytesOrdered By: Dr. Abrams on 03-27-2022 Lymphocytes/100 WBC (Bld) 14.4 % 19-41 [facility] Blood monocytes/100 leukocyt esOrdered By: Dr. Abrams on 03-27-2022 Monocytes/100 WBC (Bld) 3.4 % 0-10 [facility] Blood platelet mean volumeOr dered By: Dr. Abrams on 03-27-2022 Platelet mean volume (Bld) [Entitic vol] 9.6 fL 6.2-12.0 [facility] Determination of erythrocyte mean corpuscular volume (MCV)Ordered By: Dr. Abrams on 03-27-2022 MCV (RBC) [Entitic vol] 82.9 fL 81-99 [facility] Hematocrit Auto (Bld) [Volum e fraction]Ordered By: Dr. Abrams on 03-27-2022 Hematocrit (Bld) [Volume fraction] 49.3 % 37-47 [facility] Laboratory - Chemistry and C hemistry - challengeOrdered By: Dr. Abrams on 03-27-2022 ALP [Catalytic activity/Vol] 152 U/L 45-117 [facility] ALT [Catalytic activity/Vol] 22 U/L 13-56 [facility] CO2 [Moles/Vol] 31.0 mmol/L 21.0-32.0 [facility] Globulin (S) [Mass/Vol] 4.2 g/dL 2.2-4.2 [facility] Lipase [Catalytic activity/Vol] 113 U/L 73-393 [facility] Urea nitrogen/Creatinine [Mass ratio] 14.1 mg/mg 10-20 [facility] Laboratory - Hematology and Cell countsOrdered By: Dr. Abrams on 03-27-2022 Erythrocyte distribution width (RBC) [Entitic vol] 38.0 fL 35.1-43.9 [facility] Erythrocyte distribution width (RBC) [Ratio] 12.7 % 11.6-14.6 [facility] Immature granulocytes/100 WBC (Bld) 0.400 % 0.0-0.9 [facility] Comment on above: IG% - Immature Granu locytes (promyelocytes, myelocytes and metamyelocytes) > 1% indicates that a LEFT SHIFT is Present. MCH (RBC) [Entitic mass] 27.9 pg 27.0-32.0 [facility] Nucleated RBC/100 WBC (Bld) [Ratio] 0 % 0-5 [facility] MCHC Auto (RBC) [Mass/Vol]Or dered By: Dr. Abrams on 03-27-2022 MCHC (RBC) [Mass/Vol] 33.7 g/dL 32-36 [facility] No Panel InformationOrdered By: Dr. Abrams on 03-27-2022 Estimated Creatinine Clearance Calc 77.00 ml/min [facility] Estimated GFR (MDRD) Amer 91 mL/min >60 [facility] Comment on above: GFR Calc Estimated GFR (MDRD) Non-Af Amer 75 mL/min >60 [facility] Comment on above: Non- GFR Calc Platelets bldOrdered By: Dr. Abrams on 03-27-2022 Platelets (Bld) [#/Vol] 251 10*3/uL 150-450 [facility] Serum or plasma albumin xiomara urement (mass/volume)Ordered By: Dr. Abrams on 03-27-2022 Albumin [Mass/Vol] 3.1 g/dL 3.2-5.0 [facility] Serum or plasma albumin/glob ulin mass ratioOrdered By: Dr. Abrams on 03-27-2022 Albumin/Globulin [Mass ratio] 0.7 {ratio} 0.9-2.4 [facility] Serum or plasma calcium xiomara urement (mass/volume)Ordered By: Dr. Abrams on 03-27-2022 Calcium [Mass/Vol] 9.5 mg/dL 8.5-10.1 [facility] Serum or plasma creatinine m easurement (mass/volume)Ordered By: Dr. Abrams on 03-27-2022 Creatinine [Mass/Vol] 0.85 mg/dL 0.55-1.02 [facility] Comment on above: The validity of the calculated GFR & GFRAA in patients over 70 years has not been determined. Clinical correlation is essential. Serum or plasma urea nitroge n measurement (mass/volume)Ordered By: Dr. Abrams on 03-27-2022 Urea nitrogen [Mass/Vol] 12 mg/dL 7-18 [facility] Thin prep Papanicolaou smear with manual screeningOrdered By: Dr. Abrams on 03-27-2022 Thin prep Papanicolaou smear with manual screening 17 U/L 15-37 [facility] Thin prep Papanicolaou smear with manual screening 6 5-15 [facility] ABDOMEN AP VIEWon 08-13-2021 ABDOMEN AP VIEW Patient Name: TRENTON JACKSON STUDY: ABDOMEN AP VIEW INDICATION: constipation . COMPARISON: Abdomen radiograph dated 09/22/2019. ACCESSION NUMBER(S): [id number] ORDERING CLINICIAN: ALEX TAPIA FINDINGS: Single AP [...] above. Electronically signed by: STEW CUENCA MD [facility] ANKLE, COMPLETE, MIN 3 VIEWS on 08-13-2021 ANKLE, COMPLETE, MIN 3 VIEWS Patient Name: TRENTON JACKSON STUDY: Left ankle, 3 views. INDICATION: sudden onset pain . COMPARISON: None ACCESSION NUMBER(S): [id number] ORDERING CLINICIAN: ALEX TAPIA FINDINGS: Bones demonstrate [...] Electronically signed by: STEW CUENCA MD Normal [facility] BASIC METABOLIC PANELon - Anion gap [Moles/Vol] 10 mmol/L Normal 10 - 20 [facility] Comment on above: Performed By: #### B MP #### [address] [address] Calcium [Mass/Vol] 8.9 mg/dL Normal 8.6 - 10.3 [facility] Comment on above: Performed By: #### B MP #### [address] [address] Chloride [Moles/Vol] 97 mmol/L Low 98 - 107 [facility] Comment on above: Performed By: #### B MP #### [address] [address] Creatinine [Mass/Vol] 0.61 mg/dL Normal 0.50 - 1.05 [facility] Comment on above: Performed By: #### B MP #### [address] [address] eGFR FEMALE >90 Normal >90 [facility] Comment on above: Result Comment: CALC ULATIONS OF ESTIMATED GFR ARE PERFORMED USING THE 2020 CKD-EPI STUDY REFIT EQUATION WITHOUT THE RACE VARIABLE FOR THE IDMS-TRACEABLE CREATININE METHODS. https://jasn.asnjournals.org/content/early//ASN.2020 998465 Performed By: #### B MP #### [address] [address] Glucose [Mass/Vol] 395 mg/dL High 74 - 99 [facility] Comment on above: Performed By: #### B MP #### [address] [address] HCO3 (Bld) [Moles/Vol] 28 mmol/L Normal 21 - 32 [facility] Comment on above: Performed By: #### B MP #### [address] [address] Potassium [Moles/Vol] 4.0 mmol/L Normal 3.5 - 5.3 [facility] Comment on above: Performed By: #### B MP #### [address] [address] Sodium [Moles/Vol] 131 mmol/L Low 136 - 145 [facility] Comment on above: Performed By: #### B MP #### [address] [address] Urea nitrogen [Mass/Vol] 10 mg/dL Normal 6 - 23 [facility] Comment on above: Performed By: #### B MP #### [address] [address] BETA-HYDROXYBUTYRATEon 08-13 BETA-HYDROXYBUTYRATE 0.20 mmol/L Normal 0.02 - 0.27 [facility] Comment on above: Result Comment: The beta-hydroxybutyrate test performance characteristics have been validated by [facility] laboratory. This test has not been approved by the FDA; however, such approval is not necessary. Performed By: #### B HB2 #### [address] [address] CBC AND DIFFERENTIALon 08-13 Basophils (Bld) [#/Vol] 0.10 10*3/uL Normal 0.00 - 0.10 [facility] Comment on above: Performed By: #### C BCDF #### [address] [address] Basophils/100 WBC (Bld) 0.8 % Normal 0.0 - 2.[address] [facility] Comment on above: Performed By: #### C BCDF #### [address] [address] Eosinophils (Bld) [#/Vol] 0.20 10*3/uL Normal 0.00 - 0.70 [facility] Comment on above: Performed By: #### C BCDF #### [address] [address] Eosinophils/100 WBC (Bld) 2.1 % Normal 0.0 - 6.0 [facility] Comment on above: Performed By: #### C BCDF #### [address] [address] Erythrocyte distribution width (RBC) [Ratio] 13.0 % Normal 11.5 - 14.5 [facility] Comment on above: Performed By: #### C BCDF #### [address] [address] Hematocrit (Bld) [Volume fraction] 43.3 % Normal 36.0 - 46.0 [facility] Comment on above: Performed By: #### C BCDF #### [address] [address] Hemoglobin (Bld) [Mass/Vol] 14.3 g/dL Normal 12.0 - 16.0 [facility] Comment on above: Performed By: #### C BCDF #### [place] [id number] Lymphocytes (Bld) [#/Vol] 1.30 10*3/uL Normal 1.20 - 4.80 [facility] Comment on above: Performed By: #### C BCDF #### [address] [address] Lymphocytes/100 WBC (Bld) 12.0 % Normal 13.0 - 44.0 [facility] Comment on above: Performed By: #### C BCDF #### [address] [address] MCHC (RBC) [Mass/Vol] 33.1 g/dL Normal 32.0 - 36.0 [facility] [facility] Comment on above: Performed By: #### C BCDF #### [address] [address] MCV (RBC) [Entitic vol] 83 fL Normal 80 - [address] [facility] Comment on above: Performed By: #### C BCDF #### [address] [address] Monocytes (Bld) [#/Vol] 0.60 10*3/uL Normal 0.10 - 1.00 [facility] Comment on above: Performed By: #### C BCDF #### [address] [address] Monocytes/100 WBC (Bld) 5.6 % Normal 2.0 - 10.[address] [facility] Comment on above: Performed By: #### C BCDF #### [address] [address] Neutrophils (Bld) [#/Vol] 8.70 10*3/uL High 1.20 - 7.70 [facility] Comment on above: Result Comment: Perc ent differential counts (%) should be interpreted in the context of the absolute cell counts (cells/L). Performed By: #### C BCDF #### [address] [address] Neutrophils/100 WBC (Bld) 79.5 % Normal 40.0 - 80.0 [facility] Comment on above: Performed By: #### C BCDF #### [address] [address] NUCLEATED RBC 0.1 /100 WBC Normal [facility] Comment on above: Performed By: #### C BCDF #### [address] [address] Platelets (Bld) [#/Vol] 276 10*3/uL Normal 150 - 450 [facility] Comment on above: Performed By: #### C BCDF #### [address] [address] RBC 5.22 x10E12/L High 4.00 - 5.20 [facility] Comment on above: Performed By: #### C BCDF #### [address] [address] WBC (Bld) [#/Vol] 10.9 10*3/uL Normal 4.4 - 11.3 [facility] Comment on above: Performed By: #### C BCDF #### [address] [address] LACTATEon 08-13-2021 Lactate [Moles/Vol] 1.2 mmol/L Normal 0.4 - 2.0 [facility] Comment on above: Result Comment: Marisol puncture immediately after or during the administration of Metamizole may lead to falsely low results. Testing should be performed immediately prior to Metamizole dosing. Performed By: #### L ACT #### [id number] [place] [address] Provider Note - ED v3on 08-02 Provider Note - ED v3 Provider Note: Chart Review: ED NOTES ED NOTES: HPI: Patient presents ER today complaining of nausea constipation and left ankle and leg pain. She states that the pain has been going on for several weeks. Denies any strain or trauma. In review of previous notes patient was seen most recently at [facility] emergency department on August 09 and at [...] Alert and oriented x4, GCS 15 , supervisor sign shop II-XII grossly intact. Sensation and motor function of extremities grossly intact. Psych: Appropriate mood and affect. I have reviewed and confirmed nurses/medics notes for patient past, social and family history. Portions of this note were dictated by speech recognition. An attempt at proof reading was made to minimize errors. Minor errors in snack bar cashier may be present. HISTORY OF PRESENTING ILLNESS [...] Drug Name: (more content not included)... Normal [facility] Triage - EDon 08-13-2021 Triage - ED [...] 13-Aug-2021 10:49 by Dayanara Hoyos (RN) Normal [facility] VENOUS BLOOD GASon 2 BASE EXCESS-BLOOD 7.5 mmol/L High -2.0 - 3.0 [facility] Comment on above: Performed By: #### B LGV1 #### [place] [address] BICARB, CALCULATED 32.7 mmol/L High 22.0 - 26.0 [facility] Comment on above: Performed By: #### B LGV1 #### [place] [address] FIO2 21 % Normal [facility] Comment on above: Performed By: #### B LGV1 #### [address] [address] Oxygen (Bld) [Partial pressure] 20 mm[Hg] Low 35 - 45 [facility] Comment on above: Performed By: #### B LGV1 #### [address] [address] PCO2 47 mmHg Normal 41 - 51 [facility] Comment on above: Performed By: #### B LGV1 #### [address] [address] pH (Bld) 7.45 [pH] High 7.33 - 7.43 [facility] Comment on above: Performed By: #### B LGV1 #### [id number] SO2 42 % Low 45 - 75 [facility] Comment on above: Performed By: #### B LGV1 #### [id number] CBCon 10-01-2019 Erythrocyte distribution width (RBC) [Ratio] Canceled Normal [facility] Comment on above: Order Comment: TEST CBC WAS CANCELLED, 10/01/2019 02:09 ?Cancel Reason: Patient Discharged. Performed By: #### C OAGS #### [facility] [address] [place] [address] Hematocrit (Bld) [Volume fraction] Canceled Normal [facility] Comment on above: Order Comment: TEST CBC WAS CANCELLED, 10/01/2019 02:09 ?Cancel Reason: Patient Discharged. Performed By: #### C OAGS #### [facility] [address] [place] [address] Hemoglobin (Bld) [Mass/Vol] Canceled Normal [facility] Comment on above: Order Comment: TEST CBC WAS CANCELLED, 10/01/2019 02:09 ?Cancel Reason: Patient Discharged. Performed By: #### C OAGS #### [facility] [address] [place] [address] MCHC (RBC) [Mass/Vol] Canceled Normal [facility] Comment on above: Order Comment: TEST CBC WAS CANCELLED, 10/01/2019 02:09 ?Cancel Reason: Patient Discharged. Performed By: #### C OAGS #### [facility] [address] [place] [address] MCV (RBC) [Entitic vol] Canceled Normal [facility] Comment on above: Order Comment: TEST CBC WAS CANCELLED, 10/01/2019 02:09 ?Cancel Reason: Patient Discharged. Performed By: #### C OAGS #### [facility] [address] [place] [address] Nucleated RBC/100 WBC (Bld) [Ratio] Canceled Normal [facility] Comment on above: Order Comment: TEST CBC WAS CANCELLED, 10/01/2019 02:09 ?Cancel Reason: Patient Discharged. Performed By: #### C OAGS #### [facility] [address] [place] [address] Platelets (Bld) [#/Vol] Canceled Normal [facility] Comment on above: Order Comment: TEST CBC WAS CANCELLED, 10/01/2019 02:09 ?Cancel Reason: Patient Discharged. Performed By: #### C OAGS #### [facility] [address] [place] [address] RBC (Bld) [#/Vol] Canceled Normal [facility] Comment on above: Order Comment: TEST CBC WAS CANCELLED, 10/01/2019 02:09 ?Cancel Reason: Patient Discharged. Performed By: #### C OAGS #### [facility] [address] [place] [address] WBC (Bld) [#/Vol] Canceled Normal [facility] Comment on above: Order Comment: TEST CBC WAS CANCELLED, 10/01/2019 02:09 ?Cancel Reason: Patient Discharged. Performed By: #### C OAGS #### [facility] [address] [place] [address] RENAL FUNCTION PANELon 09-30 Albumin [Mass/Vol] Canceled Normal [facility] Comment on above: Order Comment: TEST RENAL FUNCTION PANEL WAS CANCELLED, 10/01/2019 02:09 ?Cancel Reason:Patient Discharged. Performed By: #### C OAGS #### [facility] [address] [place] [address] Anion gap [Moles/Vol] Canceled Normal [facility] Comment on above: Order Comment: TEST RENAL FUNCTION PANEL WAS CANCELLED, 10/01/2019 02:09 ?Cancel Reason:Patient Discharged. Performed By: #### C OAGS #### [facility] [address] [place] [address] Calcium [Mass/Vol] Canceled Normal [facility] Comment on above: Order Comment: TEST RENAL FUNCTION PANEL WAS CANCELLED, 10/01/2019 02:09 ?Cancel Reason:Patient Discharged. Performed By: #### C OAGS #### [facility] [address] [place] [address] Chloride [Moles/Vol] Canceled Normal [facility] Comment on above: Order Comment: TEST RENAL FUNCTION PANEL WAS CANCELLED, 10/01/2019 02:09 ?Cancel Reason:Patient Discharged. Performed By: #### C OAGS #### [facility] [address] [place] [address] Creatinine [Mass/Vol] Canceled Normal [facility] Comment on above: Order Comment: TEST RENAL FUNCTION PANEL WAS CANCELLED, 10/01/2019 02:09 ?Cancel Reason:Patient Discharged. Performed By: #### C OAGS #### [facility] [address] [place] [address] GFR- AM. Canceled Normal [facility] Comment on above: Order Comment: TEST RENAL FUNCTION PANEL WAS CANCELLED, 10/01/2019 02:09 ?Cancel Reason:Patient Discharged. Result Comment: CALC ULATIONS OF ESTIMATED GFR ARE PERFORMED USING THE MDRD STUDY EQUATION FOR THE IDMS-TRACEABLE CREATININE METHODS. CLIN CHEM 2007;53:766-72 Performed By: #### C OAGS #### [facility] [address] [place] [address] GFR-NON AM. Canceled Normal [facility] Comment on above: Order Comment: TEST RENAL FUNCTION PANEL WAS CANCELLED, 10/01/2019 02:09 ?Cancel Reason:Patient Discharged. Performed By: #### C OAGS #### [facility] [address] [place] [address] Glucose [Mass/Vol] Canceled Normal [facility] Comment on above: Order Comment: TEST RENAL FUNCTION PANEL WAS CANCELLED, 10/01/2019 02:09 ?Cancel Reason:Patient Discharged. Performed By: #### C OAGS #### [facility] [address] [place] [address] HCO3 (Bld) [Moles/Vol] Canceled Normal [facility] Comment on above: Order Comment: TEST RENAL FUNCTION PANEL WAS CANCELLED, 10/01/2019 02:09 ?Cancel Reason:Patient Discharged. Performed By: #### C OAGS #### [facility] [address] [place] [address] Phosphate [Mass/Vol] Canceled Normal [facility] Comment on above: Order Comment: TEST RENAL FUNCTION PANEL WAS CANCELLED, 10/01/2019 02:09 ?Cancel Reason:Patient Discharged. Result Comment: The performance characteristics of phosphorus testing in heparinized plasma have been validated by the individual laboratory site where testing is performed. Testing on heparinized plasma is not approved by the FDA; however, such approval is not necessary. Performed By: #### C OAGS #### [facility] [address] [place] [address] Potassium [Moles/Vol] Canceled Normal [facility] Comment on above: Order Comment: TEST RENAL FUNCTION PANEL WAS CANCELLED, 10/01/2019 02:09 ?Cancel Reason:Patient Discharged. Performed By: #### C OAGS #### [facility] [address] [place] [address] Sodium [Moles/Vol] Canceled Normal [facility] Comment on above: Order Comment: TEST RENAL FUNCTION PANEL WAS CANCELLED, 10/01/2019 02:09 ?Cancel Reason:Patient Discharged. Performed By: #### C OAGS #### [facility] [address] [place] [address] Urea nitrogen [Mass/Vol] Canceled Normal [facility] Comment on above: Order Comment: TEST RENAL FUNCTION PANEL WAS CANCELLED, 10/01/2019 02:09 ?Cancel Reason:Patient Discharged. Performed By: #### C OAGS #### [facility] [address] [place] [address] C-REACTIVE PROTEINon 020 CRP [Mass/Vol] 0.99 mg/dL Normal [facility] Comment on above: Result Comment: REF VALUE < 1.00 Performed By: #### C OAGS #### [facility] [address] [place] [address] CRP [Mass/Vol] 1.13 mg/dL Abnormal [facility] Comment on above: Result Comment: REF VALUE < 1.00 Performed By: #### C RP #### [facility] [address] [place] [address] CBC AND DIFFERENTIALon 09-29 % AUTOMATED IMMATURE GRAN 0.6 % Normal 0.0 - 0.9 [facility] Comment on above: Result Comment: Vaishali ture Granulocyte Count (IG) includes promyelocytes, myelocytes and metamyelocytes but does not include bands. Percent differential counts (%) should be interpreted in the context of the absolute cell counts (cells/L). Performed By: #### C BCDF #### [facility] [address] [place] [address] Basophils (Bld) [#/Vol] 0.06 10*3/uL Normal 0.00 - 0.10 [facility] Comment on above: Performed By: #### C BCDF #### [facility] [address] [place] [address] Basophils/100 WBC (Bld) 0.8 % Normal 0.0 - 2.0 [facility] Comment on above: Performed By: #### C BCDF #### [facility] [address] [place] [address] Eosinophils (Bld) [#/Vol] 0.15 10*3/uL Normal 0.00 - 0.70 [facility] Comment on above: Performed By: #### C BCDF #### [facility] [address] [place] [address] Eosinophils/100 WBC (Bld) 1.9 % Normal 0.0 - 6.0 [facility] Comment on above: Performed By: #### C BCDF #### [facility] [address] [place] [address] Erythrocyte distribution width (RBC) [Ratio] 14.3 % Normal 11.5 - 14.5 [facility] Comment on above: Performed By: #### C BCDF #### [facility] [address] [place] [address] Hematocrit (Bld) [Volume fraction] 39.8 % Normal 36.0 - 46.0 [facility] Comment on above: Performed By: #### C BCDF #### [facility] [address] [place] [address] Hemoglobin (Bld) [Mass/Vol] 12.9 g/dL Normal 12.0 - 16.0 [facility] Comment on above: Performed By: #### C BCDF #### [facility] [address] [place] [address] Lymphocytes (Bld) [#/Vol] 2.21 10*3/uL Normal 1.20 - 4.80 [facility] Comment on above: Performed By: #### C BCDF #### [facility] [address] [place] [address] Lymphocytes/100 WBC (Bld) 28.1 % Normal 13.0 - 44.0 [facility] Comment on above: Performed By: #### C BCDF #### [facility] [address] [place] [address] MCHC (RBC) [Mass/Vol] 32.4 g/dL Normal 32.0 - 36.0 [facility] Comment on above: Performed By: #### C BCDF #### [facility] [address] [place] [address] MCV (RBC) [Entitic vol] 85 fL Normal 80 - 100 [facility] Comment on above: Performed By: #### C BCDF #### [facility] [address] [place] [address] Monocytes (Bld) [#/Vol] 0.79 10*3/uL Normal 0.10 - 1.00 [facility] Comment on above: Performed By: #### C BCDF #### [facility] [address] [place] [address] Monocytes/100 WBC (Bld) 10.0 % Normal 2.0 - 10.0 [facility] Comment on above: Performed By: #### C BCDF #### [facility] [address] [place] [address] Neutrophils (Bld) [#/Vol] 4.61 10*3/uL Normal 1.20 - 7.70 [facility] Comment on above: Performed By: #### C BCDF #### [facility] [address] [place] [address] Neutrophils/100 WBC (Bld) 58.6 % Normal 40.0 - 80.0 [facility] Comment on above: Performed By: #### C BCDF #### [facility] [address] [place] [address] Nucleated RBC/100 WBC (Bld) [Ratio] 0.0 /100 WBC Normal 0.0-0.0 [facility] Comment on above: Performed By: #### C BCDF #### [facility] [address] [place] [address] Platelets (Bld) [#/Vol] 239 10*3/uL Normal 150 - 450 [facility] Comment on above: Performed By: #### C BCDF #### [facility] [address] [place] [address] RBC (Bld) [#/Vol] 4.70 x10E12/L Normal 4.00 - 5.20 [facility] Comment on above: Performed By: #### C BCDF #### [facility] [address] [place] [address] WBC (Bld) [#/Vol] 7.9 10*3/uL Normal 4.4 - 11.3 [facility] Comment on above: Performed By: #### C BCDF #### [facility] [address] [place] [address] % AUTOMATED IMMATURE GRAN 0.5 % Normal 0.0 - 0.9 [facility] Comment on above: Result Comment: Vaishali ture Granulocyte Count (IG) includes promyelocytes, myelocytes and metamyelocytes but does not include bands. Percent differential counts (%) should be interpreted in the context of the absolute cell counts (cells/L). Performed By: #### C BCDF #### [facility] [address] [place] [address] Basophils (Bld) [#/Vol] 0.06 10*3/uL Normal 0.00 - 0.10 [facility] Comment on above: Performed By: #### C BCDF #### [facility] [address] [place] [address] Basophils/100 WBC (Bld) 0.6 % Normal 0.0 - 2.0 [facility] Comment on above: Performed By: #### C BCDF #### [facility] [address] [place] [address] Eosinophils (Bld) [#/Vol] 0.11 10*3/uL Normal 0.00 - 0.70 [facility] Comment on above: Performed By: #### C BCDF #### [facility] [address] [place] [address] Eosinophils/100 WBC (Bld) 1.1 % Normal 0.0 - 6.0 [facility] Comment on above: Performed By: #### C BCDF #### [facility] [address] [place] [address] Erythrocyte distribution width (RBC) [Ratio] 14.3 % Normal 11.5 - 14.5 [facility] Comment on above: Performed By: #### C BCDF #### [facility] [address] [place] [address] Hematocrit (Bld) [Volume fraction] 39.7 % Normal 36.0 - 46.0 [facility] Comment on above: Performed By: #### C BCDF #### [facility] [address] [place] [address] Hemoglobin (Bld) [Mass/Vol] 12.9 g/dL Normal 12.0 - 16.0 [facility] Comment on above: Performed By: #### C BCDF #### [facility] [address] [place] [address] Lymphocytes (Bld) [#/Vol] 3.06 10*3/uL Normal 1.20 - 4.80 [facility] Comment on above: Performed By: #### C BCDF #### [facility] [address] [place] [address] Lymphocytes/100 WBC (Bld) 30.5 % Normal 13.0 - 44.0 [facility] Comment on above: Performed By: #### C BCDF #### [facility] [address] [place] [address] MCHC (RBC) [Mass/Vol] 32.5 g/dL Normal 32.0 - 36.0 [facility] Comment on above: Performed By: #### C BCDF #### [facility] [address] [place] [address] MCV (RBC) [Entitic vol] 84 fL Normal 80 - 100 [facility] Comment on above: Performed By: #### C BCDF #### [facility] [address] [place] [address] Monocytes (Bld) [#/Vol] 0.96 10*3/uL Normal 0.10 - 1.00 [facility] Comment on above: Performed By: #### C BCDF #### [facility] [address] [place] [address] Monocytes/100 WBC (Bld) 9.6 % Normal 2.0 - 10.0 [facility] Comment on above: Performed By: #### C BCDF #### [facility] [address] [place] [address] Neutrophils (Bld) [#/Vol] 5.78 10*3/uL Normal 1.20 - 7.70 [facility] Comment on above: Performed By: #### C BCDF #### [facility] [address] [place] [address] Neutrophils/100 WBC (Bld) 57.7 % Normal 40.0 - 80.0 [facility] Comment on above: Performed By: #### C BCDF #### [facility] [address] [place] [address] Nucleated RBC/100 WBC (Bld) [Ratio] 0.0 /100 WBC Normal 0.0-0.0 [facility] Comment on above: Performed By: #### C BCDF #### [facility] [address] [place] [address] Platelets (Bld) [#/Vol] 250 10*3/uL Normal 150 - 450 [facility] Comment on above: Performed By: #### C BCDF #### [facility] [address] [place] [address] RBC (Bld) [#/Vol] 4.71 x10E12/L Normal 4.00 - 5.20 [facility] Comment on above: Performed By: #### C BCDF #### [facility] [address] [place] [address] WBC (Bld) [#/Vol] 10.0 10*3/uL Normal 4.4 - 11.3 [facility] Comment on above: Performed By: #### C BCDF #### [facility] [address] [place] [address] COAGULATION SCREENon 020 aPTT Coag (Bld) [Time] 33 s Normal 28 - 38 [facility] Comment on above: Result Comment: THE APTT IS NO LONGER USED FOR MONITORING UNFRACTIONATED HEPARIN THERAPY. FOR MONITORING HEPARIN THERAPY, USE THE HEPARIN ASSAY. Performed By: #### C OAGS #### [facility] [address] [place] [address] INR Coag (PPP) [Relative time] 1.2 {INR} High 0.9 - 1.1 [facility] Comment on above: Performed By: #### C OAGS #### [facility] [address] [place] [address] PT Coag (PPP) [Time] 13.5 s High 9.7 - 12.7 [facility] Comment on above: Performed By: #### C OAGS #### [facility] [address] [place] [address] aPTT Coag (Bld) [Time] 41 s High 28 - 38 [facility] Comment on above: Result Comment: THE APTT IS NO LONGER USED FOR MONITORING UNFRACTIONATED HEPARIN THERAPY. FOR MONITORING HEPARIN THERAPY, USE THE HEPARIN ASSAY. Performed By: #### C OAGS #### [facility] [address] [place] [address] INR Coag (PPP) [Relative time] 2.0 {INR} High 0.9 - 1.1 [facility] Comment on above: Performed By: #### C OAGS #### [facility] [address] [place] [address] PT Coag (PPP) [Time] 22.4 s High 9.7 - 12.7 [facility] Comment on above: Performed By: #### C OAGS #### [facility] [address] [place] [address] COMPREHENSIVE PANELon 2019 Albumin [Mass/Vol] 3.6 g/dL Normal 3.4 - 5.0 [facility] Comment on above: Performed By: #### C MP #### [facility] [address] [place] [address] ALP [Catalytic activity/Vol] 82 U/L Normal 33 - 110 [facility] Comment on above: Performed By: #### C MP #### [facility] [address] [place] [address] ALT [Catalytic activity/Vol] 15 U/L Normal 7 - 45 [facility] Comment on above: Result Comment: Cecily ents treated with Sulfasalazine may generate falsely decreased results for ALT. Performed By: #### C MP #### [facility] [address] [place] [address] Anion gap [Moles/Vol] 16 mmol/L Normal 10 - 20 [facility] Comment on above: Performed By: #### C MP #### [facility] [address] [place] [address] AST [Catalytic activity/Vol] 13 U/L Normal 9 - 39 [facility] Comment on above: Performed By: #### C MP #### [facility] [address] [place] [address] Bilirubin [Mass/Vol] 0.7 mg/dL Normal 0.0 - 1.2 [facility] Comment on above: Performed By: #### C MP #### [facility] [address] [place] [address] Calcium [Mass/Vol] 9.2 mg/dL Normal 8.6 - 10.6 [facility] Comment on above: Performed By: #### C MP #### [facility] [address] [place] [address] Chloride [Moles/Vol] 94 mmol/L Low 98 - 107 [facility] Comment on above: Performed By: #### C MP #### [facility] [address] [place] [address] Creatinine [Mass/Vol] 1.52 mg/dL High 0.50 - 1.05 [facility] Comment on above: Performed By: #### C MP #### [facility] [address] [place] [address] GFR- AM. 44 mL/min/1.73m2 Abnormal >60 [facility] Comment on above: Result Comment: CALC ULATIONS OF ESTIMATED GFR ARE PERFORMED USING THE MDRD STUDY EQUATION FOR THE IDMS-TRACEABLE CREATININE METHODS. CLIN CHEM 2007;53:766-72 Performed By: #### C MP #### [facility] [address] [place] [address] GFR-NON AM. 36 mL/min/1.73m2 Abnormal >60 [facility] Comment on above: Performed By: #### C MP #### [facility] [address] [place] [address] Glucose [Mass/Vol] 161 mg/dL High 74 - 99 [facility] Comment on above: Performed By: #### C MP #### [facility] [address] [place] [address] HCO3 (Bld) [Moles/Vol] 30 mmol/L Normal 21 - 32 [facility] Comment on above: Performed By: #### C MP #### [facility] [address] [place] [address] Potassium [Moles/Vol] 3.7 mmol/L Normal 3.5 - 5.3 [facility] Comment on above: Performed By: #### C MP #### [facility] [address] [place] [address] Protein [Mass/Vol] 6.3 g/dL Low 6.4 - 8.2 [facility] Comment on above: Performed By: #### C MP #### [facility] [address] [place] [address] Sodium [Moles/Vol] 136 mmol/L Normal 136 - 145 [facility] Comment on above: Performed By: #### C MP #### [facility] [address] [place] [address] Urea nitrogen [Mass/Vol] 25 mg/dL High 6 - 23 [facility] Comment on above: Performed By: #### C MP #### [facility] [address] [place] [address] Daily Progress Note-Cardiolo flaco 09-30-2019 Daily Progress [...] above. Objective Data: Objective Information: T PRBPSpO2 [id number]/7995% Date/Time09/29 7: 7: 7: 7: 7:46 Range(35.7C [...] Reference Range: STRAW,YELLOW Appearance, Urine CLEAR Specific [place], Urine 1.014 pH, Urine 5.0 Protein, Urine [...] seg dep or elevation on EKG, normal NE intervals -Pain control: 975mg q8h as needed, [...] lasix - Hx of heart cath in [facility] - report not available #Provoked PE 07/06 [...] the note. I personally evaluated the patient [id number] Electronic Signatures: Quang Chris) (Signed 02-Oct-2019 14:00) Authored: Signature/Cosignature/Att estation Co-Signer: Service, Subjective Data, Objective Data, Assessment and Plan, Signature/Cosignature/Att estation Lilly Barfield (Resident)) (Signed 30-Sep-2019 10:38) Authored: Service, Subjective Data, Objective Data, Assessment and Plan, Signature/Cosignature/Att estation Last Updated: 02-Oct-2019 14:00 by Quang Chris) Normal [facility] Discharge [id number] Discharge Profile2 Discharge Orders: Anticipated Discharge Date: Anticipated Discharge [id number] Anticipated Discharge Time11:33 Problem List: Additional Dx: CHF (congestive heart failure): Catalog Name: Heart failure, unspecified Diabetes mellitus: Catalog Name: Type 2 diabetes mellitus without complications Chest pain: Onset Date: 29-Sep-2019, Catalog Name: Chest pain, unspecified Coronary artery disease: Catalog Name: Atherosclerotic heart disease of unga coronary artery without angina pectoris Ischemic dilated [...] pounds. Diet: Dietlow sodium, diabetic/carbohydrate counted Diabetic/Carbohydrate [id number]/Carb meal, 45gram/Carb snack (1999-2199cals) Fluid RestrictionTry not [...] on anti-viral therapy. -Followup routinely with your laundry housekeeping aide. You have a weak heart and they [...] Appointment 01: Physician/Dept/ServiceDr. Abigail Mascorro, Cardiology Scheduled Date/[id number] 11:00 [facility] Cardiology Phone [phone] CommentsPlease do not come into the office. The will contact the patent VIA phone. Follow-Up Appointment 02: Physician/Dept/ServiceDr. Lexis Scanlon - Family Medicine Reason for ReferralEstablish with Primary Care Provider Scheduled Date/[id number] 10:00 LocationPLEASE DO NOT COME INTO THE OFFICE, WILL CONTACT PATIENT VIA PHONE, OFFICE WILL CALL TO CONFIRM APPOINTMENT Phone [phone] CommentsPlease arrive 10-15 minutes early, bring photo [...] 30-Sep-2019 11:25) Authored: Tatiana, Gold Form - Human Resources Project Manager Summary Lilly Barfield (Resident)) (Signed 30-Sep-2019 11:54) Authored: Discharge Orders, Hospital Course (Home Care/Gold Form), Provider FINAL REVIEW of Orders, Appointments Last Updated: 30-Sep-2019 12:50 by Kam Hassan (PT ACC REP) Normal [facility] EMR ADDONon 09-30-2019 ADDON CONFIRMATION REQUEST REC'D Normal [facility] Comment on above: Performed By: #### C OAGS #### [facility] [address] [place] [address] GLUCOSE-POCTon 09-30-2019 Glucose [Mass/Vol] 210 mg/dL High 74 - 99 [facility] Comment on above: Performed By: #### C BCDF #### [facility] [address] [place] [address] Glucose [Mass/Vol] 230 mg/dL High 74 - 99 [facility] Comment on above: Performed By: #### G EMILY #### [facility] [address] [place] [address] LACTATEon 09-30-2019 Lactate [Moles/Vol] 2.0 mmol/L Normal 0.4 - 2.0 [facility] Comment on above: Result Comment: Marisol puncture immediately after or during the administration of Metamizole may lead to falsely low results. Testing should be performed immediately prior to Metamizole dosing. Performed By: #### L ACT #### [facility] [address] [place] [address] SEDIMENTATION RATE, ERYTHROC YTEon 09-30-2019 SEDIMENTATION RATE, ERYTHROCYTE 30 mm/h High 0 - 20 [facility] Comment on above: Performed By: #### E SRWS #### [facility] [address] [place] [address] TH ABDOMEN AP VIEWon 020 TH ABDOMEN AP VIEW Patient Name: TRENTON JACKSON STUDY: ABDOMEN AP VIEW; 09/30/2019 12:30 am INDICATION: Constipation. COMPARISON: None. ACCESSION NUMBER(S): [id number] ORDERING CLINICIAN: FRANCISCA FERRER FINDINGS: Surgical clips [...] as stated. This study was interpreted at [place], [place]. Electronically signed by: BEV BUCHANAN MD Normal [facility] TROPONIN Ion 09-30-2019 Troponin I.cardiac [Mass/Vol] Canceled Normal [facility] Comment on above: Order Comment: TEST TROPONIN I WAS CANCELLED, 09/30/2019 14:12 DUPLICATE ORDER, SEE [id number]. Result Comment: LESS THAN 0.04 NG/ML: NEGATIVE [...] is performed using different testing methodology at [facility] than at other [facility]. Direct result comparisons should only be made within the same method. . Biotin interference may cause falsely decreased results. Patients taking a Biotin dose of up to 5 mg/day should refrain from taking Biotin for 24 hours before sample collection. Providers may contact their laboratory for further information. Performed By: #### T ROP2 #### [facility] [address] [place] [address] Troponin I.cardiac [Mass/Vol] 0.02 ng/mL Normal 0.00 - 0.03 [facility] Comment on above: Result Comment: LESS THAN [...] is performed using different testing methodology at [facility] than at other [facility]. Direct result comparisons should only be made within the same method. . Biotin interference may cause falsely decreased results. Patients taking a Biotin dose of up to 5 mg/day should refrain from taking Biotin for 24 hours before sample collection. Providers may contact their laboratory for further information. Performed By: #### C OAGS #### [facility] [address] [place] [address] URINALYSISon 09-30-2019 Appearance (U) CLEAR Normal CLEAR [facility] Comment on above: Performed By: #### U A #### [facility] [address] [place] [address] Bilirubin (U) [Mass/Vol] Negative Normal NEGATIVE [facility] Comment on above: Performed By: #### U A #### [facility] [address] [place] [address] BLOOD Negative Normal NEGATIVE [facility] Comment on above: Performed By: #### U A #### [facility] [address] [place] [address] Color (U) YELLOW Normal STRAW,YELL OW [facility] Comment on above: Performed By: #### U A #### [facility] [address] [place] [address] Glucose [Mass/Vol] Negative Normal NEGATIVE [facility] Comment on above: Performed By: #### U A #### [facility] [address] [place] [address] Ketones Ql (U) Negative Normal NEGATIVE [facility] Comment on above: Performed By: #### U A #### [facility] [address] [place] [address] Leukocyte esterase Test strip Ql (U) Negative Normal NEGATIVE [facility] Comment on above: Performed By: #### U A #### [facility] [address] [place] [address] Nitrite Ql (U) Negative Normal NEGATIVE [facility] Comment on above: Performed By: #### U A #### [facility] [address] [place] [address] pH (Bld) 5.0 Normal 5.0 - 8.0 [facility] Comment on above: Performed By: #### U A #### [facility] [address] [place] [address] Protein (U) [Mass/Vol] Negative Normal NEGATIVE [facility] Comment on above: Performed By: #### U A #### [facility] [address] [place] [address] Specific gravity (U) [Rel density] 1.014 Normal 1.005 - 1.035 [facility] Comment on above: Performed By: #### U A #### [facility] [address] [place] [address] Urobilinogen Qn (U) <2.0 Normal 0.0 - 1.9 [facility] Comment on above: Performed By: #### U A #### [facility] [address] [place] [address] Admission Risk Screen - Adul ton 09-29-2019 [...] falls risk with risk for associated injury Crescent Safety InterventionsWDL *orient to call system *instruct [...] instruction; skill demonstration Cultural Considerationsnone Developmental Considerationsnone Adventism Considerationsnone Learning Assessment (Other Learner): Other learner [...] Spiritual Screen: Are there any cultural, spiritual, pentecostal practices/values/needs that are important for us to knowno CAGE: Is this an injured patient at a Trauma Center ([facility]/ [place]): no Vaccinations: Vaccination - Influenza Vaccination Screen: [...] 29-Sep-2019 20:36 by Bina Saunders (RN) Normal [facility] Discharge Planning [id number] 09-29-2019 Discharge Planning Note2 Discharge Planning: Anticipated Discharge [id number] Discharge Planning 09/29/19 2139 Discharge Planning Note: Patient admitted from [facility] with complaints of chest pain. Patient lives at home with - Curry Ellis [facility]- [phone]. Patient is independent of ADLS and uses a walker and cane at home. Will reassess patient's home going needs prior to discharge. Gian Saunders RN 09/30/2019 @1130 Patient Home Health Lvn Note PCN informed per [facility] that pt. would need ride home at discharge. Per medical team pt. can discharge after 12pm. PCN called and spoke with pt. to verify demos. Demos verified. The pt. stated that she is going to call her aunt to see if she can come and pick the pt. up at [facility]. PCN awaiting call back. [facility] aware. UPDATE @1300: PCN called and spoke with the pt. and at this time she was unable to secure a ride home from her aunt. PCN informed her that PCN would contact [facility] and get pt. a ride to her residence. UPDATE @1315: PCN able to secure a ride for pt per Nzuxbsi-W-Rdns for right now to 1415. PCN called [...] be discharged. [facility] aware. Ada Jasmine, Patient Home Health Lvn [phone] 09/30/2019 1400 Patient discharged home with no home care needs, IV removed, acknowledged discharge instructions. Patient left via transport to provide a ride. Vivien Ramesh RN Assessment: Discharge Planning Assessment [id number] Discharge Planning Assessment Completed byJazzmine Villanueva RNphysician extender Coordinator [phone] Primary Contact Name and NumberDarcy Jackson- [phone](1) Stated Reason for Admissionchest pain(1) Arrived Fromhospital [...] Discharge Planning CommentsDenies need to speak to social service director. This information was obtained via telephonic communication [...] Profile - Adult v2 29-Sep-2019 20:36 Normal [facility] GLUCOSE-POCTon 09-29-2019 Glucose [Mass/Vol] 189 mg/dL High 74 - 99 [facility] Comment on above: Performed By: #### G EMILY #### [facility] [address] [place] [address] Patient Profile - Adult v2on 09-29-2019 Patient Profile - Adult v2 Profile: Initial Info: How to be AddressedShelley(1) Spoken Language PreferredEnglish (1) Are you currently using the Personal Electronic Health Record or mydecono (1) Stated Reason for Admissionchest pain Primary Contact Name and All Jackson- [phone] Wants Family/Rep Notified of Admissionno Notify PCPdeferred, unable to answer Informed of Patient Visiting Rightsyes Arrived Fromspital Patient Belongingsremains with patient Medications Brought to Hospitalyes General Health: Weight in kg89.2 kilogram(s) Weight in pkm692.6 pound(s) Height in feet5 feet Height in [...] Significant Exposuresecondhand smoke(1) Resource/Environmental Concernsnone [facility] Anticipated at Transitionnone Significant IndicatorsComplete Information [...] Profile - Adult v2 28-Sep-2019 10:57 Normal [facility] Surgical Pathology Depar tmenton 08-15-2019 [facility] Surgical Pathology Department Name TRENTON JACKSON. Pathologist: [...] bone underlying the necrotic area appears unremarkable. Fish Rod Maker sections are submitted in 5 cassettes following decalcification. MY Summary of Cassettes: Specimen Label Site A 1 section of the necrotic area 2 bone margin of great toe 3 bone margin of second toe 4 bone margin of third toe 5 section of necrotic area with adjacent bone my/08/20/2019 Normal [facility] Comment on above: Performed By: #### C BCDF #### [facility] [address] [place] [address] [facility] Surgical Pathology Depar tmenton 06-23-2019 [facility] Surgical Pathology Department Name TRENTON JACKSON Pathologist: ZOHREH COSTA MD Date of Procedure: 06/23/2019 Date Received: 06/23/2019 Date Reported 06/27/2019 Submitting Physician: QUOC VIRK DPM Location: [facility] Surgical Copy To/Referring/Attending: HALIE RIVERA [...] prior to presentation. She decided to use jytg-aij-ctenmsg aspirin and routine foot care to attend [...] measuring 4 x 3 x 2 cm. Fish Rod Maker sections are submitted in 4 cassettes. SPS Summary of Cassettes: Specimen Label Site A 1 5th toe bone 2 4th toe bone 3-4 soft tissue Normal [facility] Comment on above: Performed By: #### C BCDF #### [facility] [address] [place] [address] CT ABD/PEL W IVCONon 11-05-[address] ABD/PEL W IVCON * * *Final Report* * * DATE OF EXAM: Apr 08 2019 3:29PM [facility] 0530 - CT ABD/PEL W IVCON / [...] of diverticulitis. Chronic findings as detailed above. Prosthetics Lab Technician: PSCB Transcribe Date/Time: Apr 08 2019 3:35P Dictated by : SABINA ODOM MD This examination was interpreted and the report reviewed and electronically signed by: SABINA ODOM MD on Apr 08 2019 3:51PM EST Normal [facility] Comprehensive Panelon 2018 Albumin [Mass/Vol] 3.7 g/dL Normal 3.4-5.0 [facility] Comment on above: Performed By: #### L MACU #### [facility] [address] [place] [address] ALP [Catalytic activity/Vol] 131 U/L High 46-116 [facility] Comment on above: Performed By: #### L MACU #### [facility] [address] [place] [address] ALT-SGPT Blood 21 U/L Normal 14-63 [facility] Comment on above: Performed By: #### L MACU #### [facility] [address] [place] [address] Anion gap [Moles/Vol] 15 mmol/L Normal 8-20 [facility] Comment on above: Performed By: #### L MACU #### [facility] [address] [place] [address] AST-SGOT Blood 16 U/L Normal 15-37 [facility] Comment on above: Performed By: #### L MACU #### [facility] [address] [place] [address] Bilirubin Ql (U) 0.6 mg/dL Normal 0.2-1.0 [facility] Comment on above: Performed By: #### L MACU #### [facility] [address] [place] [address] Calcium [Mass/Vol] 9.4 mg/dL Normal 8.5-10.1 [facility] Comment on above: Performed By: #### L MACU #### [facility] [address] [place] [address] CO2 Blood 29 mEq/L Normal 21-32 [facility] Comment on above: Performed By: #### L MACU #### [facility] [address] [place] [address] Creatinine [Mass/Vol] 0.65 mg/dL Normal 0.51-0.95 [facility] Comment on above: Performed By: #### L MACU #### [place] [address] Glucose [Mass/Vol] 370 mg/dL High 70-99 [facility] Comment on above: Performed By: #### L MACU #### [facility] [address] [place], [place] [address] Protein [Mass/Vol] 8.1 g/dL Normal 6.4-8.2 [facility] Comment on above: Performed By: #### L MACU #### [facility] [address] [place] [address] Urea nitrogen [Mass/Vol] 5 mg/dL Low 7-18 [facility] Comment on above: Performed By: #### L MACU #### [facility] [address] [place] [address] Urea nitrogen/Creatinine [Mass ratio] 8 mg/mg Low 10-20 [facility] Comment on above: Performed By: #### L MACU #### [facility] [address] [place] [address] Chloride [Moles/Vol] 98 mmol/L Normal 98-109 [facility] Comment on above: Result Comment: Test ing performed on an Palacio i-STAT. Performed By: #### L MACU #### [facility] [address] [place] [address] Potassium [Moles/Vol] 4.1 mmol/L Normal 3.5-4.9 [facility] Comment on above: Result Comment: Test ing performed on an Palacio i-STAT. Performed By: #### L MACU #### [place] [address] Sodium [Moles/Vol] 138 mmol/L Normal 138-146 [facility] Comment on above: Result Comment: Test ing performed on an Palacio i-STAT. Performed By: #### L MACU #### [facility] [address] [place] [address] Hemogram/Manual Diffon 04-08 Abs. Baso 0.00 thou/cmm Normal 0.00-0.08 [facility] Comment on above: Performed By: #### L MACU #### [facility] [address] [place] [address] Abs. Eosin 0.39 thou/cmm Normal 0.00-0.41 [facility] Comment on above: Performed By: #### L MACU #### [facility] [address] [place] [address] Abs. Lymph 1.82 thou/cmm Normal 1.50-3.65 [facility] Comment on above: Performed By: #### L MACU #### [facility] [address] [place] [address] Abs. Wilkinson 0.65 thou/cmm Normal 0.20-1.00 [facility] Comment on above: Performed By: #### L MACU #### [place] [address] Abs. Neut (ANC) 10.14 thou/cmm High 3.00-5.67 [facility] Comment on above: Performed By: #### L MACU #### [place] [address] Anisocytosis Ql (Bld) Few Normal [facility] Comment on above: Performed By: #### L MACU #### [place] [address] Basophil 0.0 % Normal [facility] Comment on above: Performed By: #### L MACU #### [place] [address] Eosinophil 3.0 % Normal [facility] Comment on above: Performed By: #### L MACU #### [place] [address] Lymphocyte 14.0 % Normal [facility] Comment on above: Performed By: #### L MACU #### [place] [address] Monocyte 5.0 % Normal [facility] Comment on above: Performed By: #### L MACU #### [place] [address] Platelets (Bld) [#/Vol] Normal Normal [facility] Comment on above: Performed By: #### L MACU #### [place] [address] Seg Neutrophil 78.0 % Normal [facility] Comment on above: Performed By: #### L MACU #### [facility] [address] [place] [address] Toxic Granulation Few Normal [facility] Comment on above: Performed By: #### L MACU #### [facility] [address] [place] [address] Diff Type Manual Diff Normal [facility] Comment on above: Performed By: #### L MACU #### [facility] [address] [place] [address] Erythrocyte distribution width (RBC) [Ratio] 12.8 % Normal 11.5-15.9 [facility] Comment on above: Performed By: #### L MACU #### [place] [address] Hematocrit (Bld) [Volume fraction] 46.9 % Normal 37.0-47.0 [facility] Comment on above: Performed By: #### L MACU #### [place] [address] Hemoglobin (Bld) [Mass/Vol] 15.9 g/dL Normal 12.0-16.0 [facility] Comment on above: Performed By: #### L MACU #### [place] [address] MCH (RBC) [Entitic mass] 27.8 pg Normal 27.0-31.0 [facility] Comment on above: Performed By: #### L MACU #### [place] [address] MCHC (RBC) [Mass/Vol] 33.9 % Normal 32.0-36.0 [facility] Comment on above: Performed By: #### L MACU #### [place] [address] MCV (RBC) [Entitic vol] 82.0 fl Normal 81.0-99.0 [facility] Comment on above: Performed By: #### L MACU #### [place] [address] Platelet mean volume (Bld) [Entitic vol] 9.8 fl Normal 7.1-10.5 [facility] Comment on above: Performed By: #### L MACU #### [facility] [address] [place], [place] [address] Platelets (Bld) [#/Vol] 233 thou/cmm Normal 150-400 [facility] Comment on above: Performed By: #### L MACU #### [place] [address] RBC (Bld) [#/Vol] 5.72 mil/cmm High 4.20-5.40 [facility] Comment on above: Performed By: #### L MACU #### [place] [address] WBC (Bld) [#/Vol] 13.0 thou/cmm High 4.8-10.5 [facility] Comment on above: Performed By: #### L MACU #### [place] [address] Lactic acidon 04-08-2019 Lactate [Moles/Vol] 1.8 mmol/L Normal 0.4-2.0 [facility] Comment on above: Performed By: #### L MACU #### [place] [address] Lipase Bloodon 04-08-2019 Lipase Blood 68 U/L Low 73-393 [facility] Comment on above: Performed By: #### L MACU #### [place] [address] MDRD eGFRon 04-08-2019 GFR/1.73 sq M predicted among non-blacks MDRD (S/P/Bld) [Vol rate/Area] mL/min/{1.73_m2} Normal >60mL/min/ 1.73m2 [facility] Comment on above: Result Comment: If t he patient is , multiply the result by 1.210. Performed By: #### L MACU #### [place] [address] Troponin Ion 04-08-2019 Troponin I.cardiac [Mass/Vol] ng/mL Normal <=0.07 [facility] Comment on above: Performed By: #### L MACU #### [facility] [address] [place] [address] Urinalysis Routineon 019 Appearance (U) CLEAR Normal [facility] Comment on above: Performed By: #### L MACU #### [facility] [address] [place] [address] Bilirubin Urine Negative Normal Negative [facility] Comment on above: Performed By: #### L MACU #### [place] [address] Color (U) YELLOW Normal [facility] Comment on above: Performed By: #### L MACU #### [place] [address] Ep Cells Urine 0-2 Normal 0-5 [facility] Comment on above: Performed By: #### L MACU #### [facility] [address] [place] [address] Glucose Ql (U) 2+ Abnormal Negative [facility] Comment on above: Performed By: #### L MACU #### [place] [address] Hemoglobin,Urine TRACE-INTACT Abnormal Negative [facility] Comment on above: Performed By: #### L MACU #### [place] [address] Ketone Urine Negative Normal Negative [facility] Comment on above: Performed By: #### L MACU #### [place] [address] Leukocytes Esterase Negative Normal Negative [facility] Comment on above: Performed By: #### L MACU #### [place] [address] Nitrites Urine Negative Normal Negative [facility] Comment on above: Performed By: #### L MACU #### [place] [address] pH (U) 5.5 [pH] Normal 5.0-8.0 [facility] Comment on above: Performed By: #### L MACU #### [facility] [address] [place] [address] Protein (U) [Mass/Vol] Negative Normal Negative [facility] Comment on above: Performed By: #### L MACU #### [facility] [address] [place], [place] [address] RBC LM.HPF (Urine sed) [#/Area] 0-3 Normal 0-3 [facility] Comment on above: Performed By: #### L MACU #### [place] [address] Specific [place], Ur 1.010 Normal 1.005-1 .03 0 [facility] Comment on above: Performed By: #### L MACU #### [facility] [address] [place] [address] Urobilinogen,Ur 0.2 EU/dL Normal 0.2-1.0 [facility] Comment on above: Performed By: #### L MACU #### [facility] [address] [place] [address] WBC LM.HPF (Urine sed) [#/Area] 0-2 Normal 0-5 [facility] Comment on above: Performed By: #### L MACU #### [facility] [address] [place] [address] Urine HCG, Qual.on 9 Beta HCG ( test) Ql (U) Negative Normal Negative [facility] Comment on above: Performed By: #### L MACU #### [place] [address] CT ABD/PEL W IVCONon 10-14-[address] ABD/PEL W IVCON * * *Final Report* * * DATE OF EXAM: Mar 17 2019 12:16PM [facility] 0530 - CT ABD/PEL W IVCON / [...] acute inflammation. Other chronic findings, as above. Prosthetics Lab Technician: [email or web address] Transcribe Date/Time: Mar 17 2019 12:22P Dictated by : EDEN CALHOUN MD This examination was interpreted and the report reviewed and electronically signed by: EDEN CALHOUN MD on Mar 17 2019 12:41PM EST Normal [facility] Comprehensive Panelon 2018 Anion gap [Moles/Vol] 13 mmol/L Normal 8-20 [facility] Comment on above: Performed By: #### L MACU #### [place] [address] Chloride [Moles/Vol] 99 mmol/L Normal 98-109 [facility] Comment on above: Result Comment: Test ing performed on an [employer] i-STAT. Performed By: #### L MACU #### [address] [address] Potassium [Moles/Vol] 4.5 mmol/L Normal 3.5-4.9 [facility] Comment on above: Result Comment: Test ing performed on an [employer] i-STAT. Performed By: #### L MACU #### [place] [address] Sodium [Moles/Vol] 135 mmol/L Low 138-146 [facility] Comment on above: Result Comment: Test ing performed on an [employer] i-STAT. Performed By: #### L MACU #### [address] [address] Albumin [Mass/Vol] 3.5 g/dL Normal 3.4-5.0 [facility] Comment on above: Performed By: #### L MACU #### [address] [address] ALP [Catalytic activity/Vol] 109 U/L Normal 46-116 [facility] Comment on above: Performed By: #### L MACU #### [address] [address] ALT-SGPT Blood 22 U/L Normal 14-63 [facility] Comment on above: Performed By: #### L MACU #### [facility] [address] [place], [place] [address] AST-SGOT Blood 21 U/L Normal 15-37 [facility] Comment on above: Performed By: #### L MACU #### [facility] [address] [place], [place] [address] Bilirubin Ql (U) 0.7 mg/dL Normal 0.2-1.0 [facility] Comment on above: Performed By: #### L MACU #### [facility] [address] [place], [place] [address] Calcium [Mass/Vol] 9.0 mg/dL Normal 8.5-10.1 [facility] Comment on above: Performed By: #### L MACU #### [facility] [address] [place], [place] [address] CO2 Blood 28 mEq/L Normal 21-32 [facility] Comment on above: Performed By: #### L MACU #### [facility] [address] [place], [place] [address] Creatinine [Mass/Vol] 0.63 mg/dL Normal 0.51-0.95 [facility] Comment on above: Performed By: #### L MACU #### [facility] [address] [place], [place] [address] Glucose [Mass/Vol] 312 mg/dL High 70-99 [facility] Comment on above: Performed By: #### L MACU #### [facility] [address] [place], [place] [address] Protein [Mass/Vol] 7.5 g/dL Normal 6.4-8.2 [facility] Comment on above: Performed By: #### L MACU #### [facility] [address] [place], [place] [address] Urea nitrogen [Mass/Vol] 5 mg/dL Low 7-18 [facility] Comment on above: Performed By: #### L MACU #### [facility] [address] [place], [place] [address] Urea nitrogen/Creatinine [Mass ratio] 8 mg/mg Low 10-20 [facility] Comment on above: Performed By: #### L MACU #### [facility] [address] [place] [address] Hemogram/Diffon 03-17-2019 Abs. Baso 0.11 thou/cmm High 0.00-0.08 [facility] Comment on above: Performed By: #### L MACU #### [facility] [address] [place] [address] Abs. Wilkinson 0.49 thou/cmm Normal 0.20-1.00 [facility] Comment on above: Performed By: #### L MACU #### [place] [address] Abs. Neut (ANC) 7.08 thou/cmm High 3.00-5.67 [facility] Comment on above: Performed By: #### L MACU #### [place] [address] Basophils/100 WBC (Bld) 1.1 % Normal [facility] Comment on above: Performed By: #### L MACU #### [place] [address] Eosinophils (Bld) [#/Vol] 0.27 thou/cmm Normal 0.00-0.41 [facility] Comment on above: Performed By: #### L MACU #### [place] [address] Eosinophils/100 WBC (Bld) 2.7 % Normal [facility] Comment on above: Performed By: #### L MACU #### [place] [address] Erythrocyte distribution width (RBC) [Ratio] 12.9 % Normal 11.5-15.9 [facility] Comment on above: Performed By: #### L MACU #### [place] [address] Hematocrit (Bld) [Volume fraction] 47.5 % High 37.0-47.0 [facility] Comment on above: Performed By: #### L MACU #### [address] [place], [place] [address] Hemoglobin (Bld) [Mass/Vol] 15.8 g/dL Normal 12.0-16.0 [facility] Comment on above: Performed By: #### L MACU #### [facility] [address] [place], [place] [address] Lymphocytes (Bld) [#/Vol] 2.05 thou/cmm Normal 1.50-3.65 [facility] Comment on above: Performed By: #### L MACU #### [facility] [address] [place], [place] [address] Lymphocytes/100 WBC (Bld) 20.5 % Normal [facility] Comment on above: Performed By: #### L MACU #### [facility] [address] [place], [place] [address] MCH (RBC) [Entitic mass] 27.7 pg Normal 27.0-31.0 [facility] Comment on above: Performed By: #### L MACU #### [facility] [address] [place] [address] MCHC (RBC) [Mass/Vol] 33.3 % Normal 32.0-36.0 [facility] Comment on above: Performed By: #### L MACU #### [facility] [address] [place] [address] MCV (RBC) [Entitic vol] 83.3 fL Normal 81.0-99.0 [facility] Comment on above: Performed By: #### L MACU #### [facility] [address] [place], [place] [address] Monocytes/100 WBC (Bld) 4.9 % Normal [facility] Comment on above: Performed By: #### L MACU #### [place] [address] Platelet mean volume (Bld) [Entitic vol] 9.9 fL Normal 7.1-10.5 [facility] Comment on above: Performed By: #### L MACU #### [place] [id number] Platelets (Bld) [#/Vol] 240 thou/cmm Normal 150-400 [facility] Comment on above: Performed By: #### L MACU #### [facility] [address] [place] [address] RBC (Bld) [#/Vol] 5.70 mil/cmm High 4.20-5.40 [facility] Comment on above: Performed By: #### L MACU #### [facility] [address] [place] [address] Seg Neutrophil 70.8 % Normal [facility] Comment on above: Performed By: #### L MACU #### [facility] [address] [place] [address] WBC (Bld) [#/Vol] 10.0 thou/cmm Normal 4.8-10.5 [facility] Comment on above: Performed By: #### L MACU #### [place] [address] Lipase Bloodon 03-17-2019 Lipase Blood 107 U/L Normal 73-393 [facility] Comment on above: Performed By: #### L MACU #### [place] [address] MDRD eGFRon 03-17-2019 GFR/1.73 sq M predicted among non-blacks MDRD (S/P/Bld) [Vol rate/Area] mL/min/{1.73_m2} Normal >60mL/min/ 1.73m2 [facility] Comment on above: Result Comment: If t he patient is , multiply the result by 1.210. Performed By: #### L MACU #### [facility] [address] [place] [address] Macroscopic Urinalysison Appearance (U) CLEAR Normal [facility] Comment on above: Performed By: #### L MACU #### [place] [address] Bilirubin Urine Negative Normal Negative [facility] Comment on above: Performed By: #### L MACU #### [place] [address] Color (U) YELLOW Normal [facility] Comment on above: Performed By: #### L MACU #### [facility] [address] [place] [address] Glucose Ql (U) 2+ Abnormal Negative [facility] Comment on above: Performed By: #### L MACU #### [place] [address] Hemoglobin,Urine Negative Normal Negative [facility] Comment on above: Performed By: #### L MACU #### [place] [address] Ketone Urine Negative Normal Negative [facility] Comment on above: Performed By: #### L MACU #### [place] [address] Leukocytes Esterase Negative Normal Negative [facility] Comment on above: Performed By: #### L MACU #### [place] [address] Nitrites Urine Negative Normal Negative [facility] Comment on above: Performed By: #### L MACU #### [place] [address] pH (U) 6.0 [pH] Normal 5.0-8.0 [facility] Comment on above: Performed By: #### L MACU #### [place] [address] Protein (U) [Mass/Vol] Negative Normal Negative [facility] Comment on above: Performed By: #### L MACU #### [place] [address] Specific [place], Ur 1.020 Normal 1.005-1 .03 0 [facility] Comment on above: Performed By: #### L MACU #### [place] [address] Urobilinogen,Ur 0.2 EU/dL Normal 0.2-1.0 [facility] Comment on above: Performed By: #### L MACU #### [place] [address] Troponin Ion 03-17-2019 Troponin I.cardiac [Mass/Vol] ng/mL Normal <=0.07 [facility] Comment on above: Performed By: #### L MACU #### [facility] [address] [place] [address] Comprehensive Panelon 2018 Creatinine [Mass/Vol] 0.57 mg/dL Normal 0.51-0.95 [facility] Comment on above: Performed By: #### L MACU #### [facility] [address] [place] [address] ALP [Catalytic activity/Vol] 118 U/L High 45-117 [facility] Comment on above: Performed By: #### L MACU #### [place] [address] Bilirubin [Mass/Vol] 0.6 mg/dL Normal 0.2-1.0 [facility] Comment on above: Performed By: #### L MACU #### [place] [address] Protein [Mass/Vol] 7.6 g/dL Normal 6.4-8.2 [facility] Comment on above: Performed By: #### L MACU #### [address] [address] ALT [Catalytic activity/Vol] 21 U/L Normal 12-78 [facility] Comment on above: Performed By: #### L MACU #### [address] [address] AST [Catalytic activity/Vol] 17 U/L Normal 15-37 [facility] Comment on above: Performed By: #### L MACU #### [facility] [address] [place], [place] [address] Urea nitrogen [Mass/Vol] 8 mg/dL Normal 7-18 [facility] Comment on above: Performed By: #### L MACU #### [place] [address] Glucose [Mass/Vol] 354 mg/dL High 70-99 [facility] Comment on above: Performed By: #### L MACU #### [address] [place], [place] [address] Albumin [Mass/Vol] 3.5 g/dL Normal 3.4-5.0 [facility] Comment on above: Performed By: #### L MACU #### [facility] [address] [place], [place] [address] Anion gap [Moles/Vol] 8 mmol/L Normal 8-16 [facility] Comment on above: Performed By: #### L MACU #### [facility] [address] [place], [place] [address] Calcium [Mass/Vol] 9.1 mg/dL Normal 8.5-10.1 [facility] Comment on above: Performed By: #### L MACU #### [facility] [address] [place] [address] CO2 [Moles/Vol] 29 mmol/L Normal 21-32 [facility] Comment on above: Performed By: #### L MACU #### [place] [address] Chloride [Moles/Vol] 102 mmol/L Normal 98-107 [facility] Comment on above: Performed By: #### L MACU #### [place] [address] Potassium [Moles/Vol] 4.8 mmol/L Normal 3.5-5.1 [facility] Comment on above: Performed By: #### L MACU #### [place] [address] Sodium [Moles/Vol] 134 mmol/L Low 136-145 [facility] Comment on above: Performed By: #### L MACU #### [place] [address] Hemogramon 03-14-2019 Erythrocyte distribution width (RBC) [Ratio] 12.8 % Normal 11.5-15.9 [facility] Comment on above: Performed By: #### L MACU #### [place] [address] Hematocrit (Bld) [Volume fraction] 46.8 % Normal 37.0-47.0 [facility] Comment on above: Performed By: #### L MACU #### [facility] [address] [place], [place] [address] Hemoglobin (Bld) [Mass/Vol] 15.7 g/dL Normal 12.0-16.0 [facility] Comment on above: Performed By: #### L MACU #### [facility] [address] [place], [place] [address] MCH (RBC) [Entitic mass] 27.8 pg Normal 27.0-31.0 [facility] Comment on above: Performed By: #### L MACU #### [facility] [address] [place] [address] MCHC (RBC) [Mass/Vol] 33.5 % Normal 32.0-36.0 [facility] Comment on above: Performed By: #### L MACU #### [facility] [address] [place] [address] MCV (RBC) [Entitic vol] 83.0 fL Normal 81.0-99.0 [facility] Comment on above: Performed By: #### L MACU #### [facility] [address] [place] [address] Platelet mean volume (Bld) [Entitic vol] 9.9 fL Normal 7.1-10.5 [facility] Comment on above: Performed By: #### L MACU #### [facility] [address] [place] [address] Platelets (Bld) [#/Vol] 256 thou/cmm Normal 150-400 [facility] Comment on above: Performed By: #### L MACU #### [facility] [address] [place], [place] [address] RBC (Bld) [#/Vol] 5.64 mil/cmm High 4.20-5.40 [facility] Comment on above: Performed By: #### L MACU #### [facility] [address] [place] [address] WBC (Bld) [#/Vol] 10.6 thou/cmm High 4.8-10.5 [facility] Comment on above: Performed By: #### L MACU #### [facility] [address] [place] [address] Lipase Bloodon 03-14-2019 Lipase Blood 104 U/L Normal 73-393 [facility] Comment on above: Performed By: #### L MACU #### [facility] [address] [place] [address] MDRD GFRon 03-14-2019 GFR/1.73 sq M predicted among non-blacks MDRD (S/P/Bld) [Vol rate/Area] mL/min/{1.73_m2} Normal >60mL/min/ 1.73m2 [facility] Comment on above: Result Comment: If t he patient is , multiply the result by 1.210. Performed By: #### L MACU #### [place] [address] Macroscopic Urinalysison Appearance (U) CLEAR Normal [facility] Comment on above: Performed By: #### L MACU #### [place] [address] Bilirubin Urine Negative Normal Negative [facility] Comment on above: Performed By: #### L MACU #### [place] [address] Color (U) YELLOW Normal [facility] Comment on above: Performed By: #### L MACU #### [place] [address] Glucose Ql (U) 2+ Abnormal Negative [facility] Comment on above: Performed By: #### L MACU #### [place] [address] Hemoglobin,Urine Negative Normal Negative [facility] Comment on above: Performed By: #### L MACU #### [place] [address] Ketone Urine Negative Normal Negative [facility] Comment on above: Performed By: #### L MACU #### [place] [address] Leukocytes Esterase Negative Normal Negative [facility] Comment on above: Performed By: #### L MACU #### [facility] [address] [place] [address] Nitrites Urine Negative Normal Negative [facility] Comment on above: Performed By: #### L MACU #### [facility] [address] [place] [address] pH (U) 5.5 [pH] Normal 5.0-8.0 [facility] Comment on above: Performed By: #### L MACU #### [facility] [address] [place] [address] Protein (U) [Mass/Vol] Negative Normal Negative [facility] Comment on above: Performed By: #### L MACU #### [place] [address] Specific [place], Ur 1.015 Normal 1.005-1 .03 0 [facility] Comment on above: Performed By: #### L MACU #### [place] [address] Urobilinogen,Ur 0.2 EU/dL Normal 0.2-1.0 [facility] Comment on above: Performed By: #### L MACU #### [place] [address] Urine HCG, Qual.on 9 Beta HCG ( test) Ql (U) Negative Normal Negative [facility] Comment on above: Performed By: #### L MACU #### [place] [address] Comprehensive Panelon 2018 Albumin [Mass/Vol] 3.4 g/dL Normal 3.4-5.0 [facility] Comment on above: Performed By: #### L MACU #### [place] [address] ALP [Catalytic activity/Vol] 109 U/L Normal 46-116 [facility] Comment on above: Performed By: #### L MACU #### [place] [address] ALT-SGPT Blood 20 U/L Normal 14-63 [facility] Comment on above: Performed By: #### L MACU #### [facility] [address] [place], [place] [address] Anion gap [Moles/Vol] 15 mmol/L Normal 8-20 [facility] Comment on above: Performed By: #### L MACU #### [facility] [address] [place], [place] [address] AST-SGOT Blood 19 U/L Normal 15-37 [facility] Comment on above: Performed By: #### L MACU #### [facility] [address] [place], [place] [address] Bilirubin Ql (U) 0.8 mg/dL Normal 0.2-1.0 [facility] Comment on above: Performed By: #### L MACU #### [facility] [address] [place], [place] [address] Calcium [Mass/Vol] 9.0 mg/dL Normal 8.5-10.1 [facility] Comment on above: Performed By: #### L MACU #### [facility] [address] [place] [address] CO2 Blood 27 mEq/L Normal 21-32 [facility] Comment on above: Performed By: #### L MACU #### [facility] [address] [place], [place] [address] Creatinine [Mass/Vol] 0.62 mg/dL Normal 0.51-0.95 [facility] Comment on above: Performed By: #### L MACU #### [facility] [address] [place], [place] [address] Glucose [Mass/Vol] 343 mg/dL High 70-99 [facility] Comment on above: Performed By: #### L MACU #### [facility] [address] [place], [place] [address] Protein [Mass/Vol] 7.5 g/dL Normal 6.4-8.2 [facility] Comment on above: Performed By: #### L MACU #### [place] [address] Urea nitrogen [Mass/Vol] 3 mg/dL Low 7-25 [facility] Comment on above: Performed By: #### L MACU #### [facility] [address] [place], [place] [address] Urea nitrogen/Creatinine [Mass ratio] 5 mg/mg Low 10-20 [facility] Comment on above: Performed By: #### L MACU #### [facility] [address] [place], [place] [address] Chloride [Moles/Vol] 100 mmol/L Normal 98-109 [facility] Comment on above: Result Comment: Test ing performed on an [employer] i-STAT. Performed By: #### L MACU #### [facility] [address] [place], [place] [address] Potassium [Moles/Vol] 3.7 mmol/L Normal 3.5-4.9 [facility] Comment on above: Result Comment: Test ing performed on an [employer] i-STAT. Performed By: #### L MACU #### [facility] [address] [place], [place] [address] Sodium [Moles/Vol] 138 mmol/L Normal 138-146 [facility] Comment on above: Result Comment: Test ing performed on an [employer] i-STAT. Performed By: #### L MACU #### [facility] [address] [place], [place] [address] D-Dimer Quantitativeon 10-27 D-Dimer Quantitative 310 ng/mL(FEU) Normal <450 [facility] Comment on above: Result Comment: 500 ng/mL [...] By: #### L MACU #### [facility] [address] [place] [address] Hemogramon 10-27-2018 Erythrocyte distribution width (RBC) [Ratio] 12.5 % Normal 11.5-15.9 [facility] Comment on above: Performed By: #### L MACU #### [facility] [address] [place] [address] Hematocrit (Bld) [Volume fraction] 46.1 % Normal 37.0-47.0 [facility] Comment on above: Performed By: #### L MACU #### [facility] [address] [place] [address] Hemoglobin (Bld) [Mass/Vol] 15.8 g/dL Normal 12.0-16.0 [facility] Comment on above: Performed By: #### L MACU #### [place] [address] MCH (RBC) [Entitic mass] 27.8 pg Normal 27.0-31.0 [facility] Comment on above: Performed By: #### L MACU #### [facility] [address] [place] [address] MCHC (RBC) [Mass/Vol] 34.3 % Normal 32.0-36.0 [facility] Comment on above: Performed By: #### L MACU #### [place] [address] MCV (RBC) [Entitic vol] 81.0 fL Normal 81.0-99.0 [facility] Comment on above: Performed By: #### L MACU #### [facility] [address] [place] [address] Platelet mean volume (Bld) [Entitic vol] 10.0 fL Normal 7.1-10.5 [facility] Comment on above: Performed By: #### L MACU #### [facility] [address] [place] [address] Platelets (Bld) [#/Vol] 223 thou/cmm Normal 150-400 [facility] Comment on above: Performed By: #### L MACU #### [facility] [address] [place], [place] [address] RBC (Bld) [#/Vol] 5.69 mil/cmm High 4.20-5.40 [facility] Comment on above: Performed By: #### L MACU #### [facility] [address] [place], [place] [address] WBC (Bld) [#/Vol] 10.0 thou/cmm Normal 4.8-10.5 [facility] Comment on above: Performed By: #### L MACU #### [place] [address] MDRD eGFRon 10-27-2018 GFR/1.73 sq M predicted among non-blacks MDRD (S/P/Bld) [Vol rate/Area] mL/min/{1.73_m2} Normal >60mL/min/ 1.73m2 [facility] Comment on above: Result Comment: If t he patient is , multiply the result by 1.210. Performed By: #### L MACU #### [place] [address] N-terminal Pro-BNPon 019 Natriuretic peptide B (Bld) [Mass/Vol] 1340.0 pg/mL Normal [facility] Comment on above: Result Comment: Note new reference range: Normal Reference Range: Patients <75 yrs old <125pg/ml Patients >=75 yrs old <450 pg/ml Performed By: #### L MACU #### [facility] [address] [place] [address] Troponin Ion 10-27-2018 Troponin I.cardiac [Mass/Vol] ng/mL Normal <=0.07 [facility] Comment on above: Performed By: #### L MACU #### [place] [address] Troponin I.cardiac [Mass/Vol] ng/mL Normal <=0.07 [facility] Comment on above: Performed By: #### L MACU #### [place] [address] Troponin Ion 10-21-2018 Troponin I.cardiac [Mass/Vol] ng/mL Normal <=0.07 [facility] Comment on above: Performed By: #### L CBCD #### [facility] [address] [place], [place] [address] Basic Panelon 10-20-2018 Anion gap [Moles/Vol] 17 mmol/L Normal 8-20 [facility] Comment on above: Performed By: #### L CBCD #### [facility] [address] [place], [place] [address] Calcium [Mass/Vol] 9.7 mg/dL Normal 8.5-10.1 [facility] Comment on above: Performed By: #### L CBCD #### [address] [address] CO2 Blood 26 mEq/L Normal 21-32 [facility] Comment on above: Performed By: #### L CBCD #### [address] [address] Creatinine [Mass/Vol] 0.77 mg/dL Normal 0.51-0.95 [facility] Comment on above: Performed By: #### L CBCD #### [address] [address] Glucose [Mass/Vol] 328 mg/dL High 70-99 [facility] Comment on above: Performed By: #### L CBCD #### [address] [address] Urea nitrogen [Mass/Vol] 6 mg/dL Low 7-25 [facility] Comment on above: Performed By: #### L CBCD #### [address] [address] Urea nitrogen/Creatinine [Mass ratio] 8 mg/mg Low 10-20 [facility] Comment on above: Performed By: #### L CBCD #### [address] [address] Chloride [Moles/Vol] 100 mmol/L Normal 98-109 [facility] Comment on above: Result Comment: Test ing performed on an BMP [employer] i-STAT. Performed By: #### L CBCD #### [facility] [address] [place], [place] [address] Potassium [Moles/Vol] 3.9 mmol/L Normal 3.5-4.9 [facility] Comment on above: Result Comment: Test ing performed on an [employer] i-STAT. Performed By: #### L CBCD #### [facility] [address] [place], [place] [address] Sodium [Moles/Vol] 139 mmol/L Normal 138-146 [facility] Comment on above: Result Comment: Test ing performed on an [employer] i-STAT. Performed By: #### L CBCD #### [address] [address] D-Dimer Quantitativeon 10-20 D-Dimer Quantitative 310 ng/mL(FEU) Normal <450 [facility] Comment on above: Result Comment: 500 ng/mL [...] By: #### L CBCD #### [facility] [address] [place], [place] [address] Glucose Meteron 10-20-2018 Glucose [Mass/Vol] 284 mg/dL High 70-99 [facility] Comment on above: Result Comment: MD Mccracken OTIFIED Testing performed at [address] [address] Performed By: #### L CBCD #### [address] [address] Hemogram/Manual Diffon 10-20 Abs. Baso 0.00 thou/cmm Normal 0.00-0.08 [facility] Comment on above: Performed By: #### L CBCD #### [facility] [address] [place] [address] Abs. Eosin 0.00 thou/cmm Normal 0.00-0.41 [facility] Comment on above: Performed By: #### L CBCD #### [facility] [address] [place] [address] Abs. Lymph 3.17 thou/cmm Normal 1.50-3.65 [facility] Comment on above: Performed By: #### L CBCD #### [facility] [address] [place] [address] Abs. Wilkinson 0.98 thou/cmm Normal 0.20-1.00 [facility] Comment on above: Performed By: #### L CBCD #### [facility] [address] [place] [address] Abs. Neut (ANC) 8.05 thou/cmm High 3.00-5.67 [facility] Comment on above: Performed By: #### L CBCD #### [facility] [address] [place] [address] Atypical Lymph 4.0 % Normal [facility] Comment on above: Performed By: #### L CBCD #### [facility] [address] [place] [address] Basophil 0.0 % Normal [facility] Comment on above: Performed By: #### L CBCD #### [facility] [address] [place] [address] Eosinophil 0.0 % Normal [facility] Comment on above: Performed By: #### L CBCD #### [facility] [address] [place] [address] Lymphocyte 22.0 % Normal [facility] Comment on above: Performed By: #### L CBCD #### [facility] [address] [place] [address] Monocyte 8.0 % Normal [facility] Comment on above: Performed By: #### L CBCD #### [facility] [address] [place] [address] Platelets (Bld) [#/Vol] Normal Normal [facility] Comment on above: Performed By: #### L CBCD #### [facility] [address] [place] [address] RBC morphology finding Nom (Bld) Normal Normal [facility] Comment on above: Performed By: #### L CBCD #### [facility] [address] [place] [address] Seg Neutrophil 66.0 % Normal [facility] Comment on above: Performed By: #### L CBCD #### [facility] [address] [place] [address] Diff Type Manual Diff Normal [facility] Comment on above: Performed By: #### L CBCD #### [place] [address] Erythrocyte distribution width (RBC) [Ratio] 12.9 % Normal 11.5-15.9 [facility] Comment on above: Performed By: #### L CBCD #### [facility] [address] [place] [address] Hematocrit (Bld) [Volume fraction] 47.6 % High 37.0-47.0 [facility] Comment on above: Performed By: #### L CBCD #### [place] [address] Hemoglobin (Bld) [Mass/Vol] 16.1 g/dL High 12.0-16.0 [facility] Comment on above: Performed By: #### L CBCD #### [facility] [address] [place] [address] MCH (RBC) [Entitic mass] 27.8 pg Normal 27.0-31.0 [facility] Comment on above: Performed By: #### L CBCD #### [facility] [address] [place] [address] MCHC (RBC) [Mass/Vol] 33.8 % Normal 32.0-36.0 [facility] Comment on above: Performed By: #### L CBCD #### [place] [address] MCV (RBC) [Entitic vol] 82.2 fl Normal 81.0-99.0 [facility] Comment on above: Performed By: #### L CBCD #### [facility] [address] [place] [address] Platelet mean volume (Bld) [Entitic vol] 9.9 fl Normal 7.1-10.5 [facility] Comment on above: Performed By: #### L CBCD #### [place] [address] Platelets (Bld) [#/Vol] 250 thou/cmm Normal 150-400 [facility] Comment on above: Performed By: #### L CBCD #### [place] [address] RBC (Bld) [#/Vol] 5.79 mil/cmm High 4.20-5.40 [facility] Comment on above: Performed By: #### L CBCD #### [place] [address] WBC (Bld) [#/Vol] 12.2 thou/cmm High 4.8-10.5 [facility] Comment on above: Performed By: #### L CBCD #### [place] [address] MDRD eGFRon 10-20-2018 GFR/1.73 sq M predicted among non-blacks MDRD (S/P/Bld) [Vol rate/Area] mL/min/{1.73_m2} Normal >60mL/min/ 1.73m2 [facility] Comment on above: Result Comment: If t he patient is , multiply the result by 1.210. Performed By: #### L CBCD #### [place] [address] N-terminal Pro-BNPon 019 Natriuretic peptide B (Bld) [Mass/Vol] 751.0 pg/mL Normal [facility] Comment on above: Result Comment: Note new reference range: Normal Reference Range: Patients <75 yrs old <125pg/ml Patients >=75 yrs old <450 pg/ml Performed By: #### L CBCD #### [facility] [address] [place] [address] Troponin Ion 10-20-2018 Troponin I.cardiac [Mass/Vol] ng/mL Normal <=0.07 [facility] Comment on above: Performed By: #### L CBCD #### [facility] [address] [place] [address] Comprehensive Panelon 2018 Albumin [Mass/Vol] 3.1 g/dL Low 3.4-5.0 [facility] Comment on above: Performed By: #### L P14 ####[place] [address] ALP [Catalytic activity/Vol] 93 U/L Normal 46-116 [facility] Comment on above: Performed By: #### L P14 ####[place] [address] ALT-SGPT Blood 22 U/L Normal 14-63 [facility] Comment on above: Performed By: #### L P14 ####[place] [address] Anion gap [Moles/Vol] 13 mmol/L Normal 8-20 [facility] Comment on above: Performed By: #### L P14 ####[place] [address] AST-SGOT Blood 20 U/L Normal 15-37 [facility] Comment on above: Performed By: #### L P14 ####[place] [address] Bilirubin Ql (U) 0.8 mg/dL Normal 0.2-1.0 [facility] Comment on above: Performed By: #### L P14 ####[place] [address] Calcium [Mass/Vol] 9.2 mg/dL Normal 8.5-10.1 [facility] Comment on above: Performed By: #### L P14 ####[place] [address] CO2 Blood 31 mEq/L Normal 21-32 [facility] Comment on above: Performed By: #### L P14 ####[facility] [place], [place] [address] Creatinine [Mass/Vol] 0.73 mg/dL Normal 0.51-0.95 [facility] Comment on above: Performed By: #### L P14 ####[address] [address] Glucose [Mass/Vol] 228 mg/dL High 70-99 [facility] Comment on above: Performed By: #### L P14 ####[address] [address] Protein [Mass/Vol] 7.0 g/dL Normal 6.4-8.2 [facility] Comment on above: Performed By: #### L P14 ####[address] [address] Urea nitrogen [Mass/Vol] 6 mg/dL Low 7-25 [facility] Comment on above: Performed By: #### L P14 ####[address] [address] Urea nitrogen/Creatinine [Mass ratio] 8 mg/mg Low 10-20 [facility] Comment on above: Performed By: #### L P14 ####[address] [address] Chloride [Moles/Vol] 98 mmol/L Normal 98-109 [facility] Comment on above: Result Comment: Test ing performed on an Palacio i-STAT. Performed By: #### L P14 ####[address] [address] Potassium [Moles/Vol] 4.2 mmol/L Normal 3.5-4.9 [facility] Comment on above: Result Comment: Test ing performed on an Palacio i-STAT. Performed By: #### L P14 ####[address] [address] Sodium [Moles/Vol] 138 mmol/L Normal 138-146 [facility] Comment on above: Result Comment: Test ing performed on an Palacio i-STAT. Performed By: #### L P14 ####[place] [address] Hemogramon 10-04-2018 Erythrocyte distribution width (RBC) [Ratio] 12.6 % Normal 11.5-15.9 [facility] Comment on above: Performed By: #### L CBC ####[address] [address] Hematocrit (Bld) [Volume fraction] 46.2 % Normal 37.0-47.0 [facility] Comment on above: Performed By: #### L CBC ####[place] [address] Hemoglobin (Bld) [Mass/Vol] 15.3 g/dL Normal 12.0-16.0 [facility] Comment on above: Performed By: #### L CBC ####[place] [address] MCH (RBC) [Entitic mass] 27.5 pg Normal 27.0-31.0 [facility] Comment on above: Performed By: #### L CBC ####[place] [address] MCHC (RBC) [Mass/Vol] 33.1 % Normal 32.0-36.0 [facility] Comment on above: Performed By: #### L CBC ####[place] [address] MCV (RBC) [Entitic vol] 83.1 fL Normal 81.0-99.0 [facility] Comment on above: Performed By: #### L CBC ####[address] [address] Platelet mean volume (Bld) [Entitic vol] 9.7 fL Normal 7.1-10.5 [facility] Comment on above: Performed By: #### L CBC ####[place] [address] Platelets (Bld) [#/Vol] 261 thou/cmm Normal 150-400 [facility] Comment on above: Performed By: #### L CBC ####[address] [place] [address] RBC (Bld) [#/Vol] 5.56 mil/cmm High 4.20-5.40 [facility] Comment on above: Performed By: #### L CBC ####[facility] [place], [place] [address] WBC (Bld) [#/Vol] 11.9 thou/cmm High 4.8-10.5 [facility] Comment on above: Performed By: #### L CBC ####[facility] [place] [address] Lactic acidon 10-04-2018 Lactate [Moles/Vol] 1.2 mmol/L Normal 0.4-2.0 [facility] Comment on above: Performed By: #### L CBCD #### [place] [address] Lipase Bloodon 10-04-2018 Lipase Blood 85 U/L Normal 73-393 [facility] Comment on above: Performed By: #### L LIP ####[place] [address] MDRD eGFRon 10-04-2018 GFR/1.73 sq M predicted among non-blacks MDRD (S/P/Bld) [Vol rate/Area] mL/min/{1.73_m2} Normal >60mL/min/ 1.73m2 [facility] Comment on above: Result Comment: If t he patient is , multiply the result by 1.210. Performed By: #### L GFR ####[facility] [place] [address] Macroscopic Urinalysison Appearance (U) CLEAR Normal [facility] Comment on above: Performed By: #### L CBCD #### [place] [address] Bilirubin Urine Negative Normal Negative [facility] Comment on above: Performed By: #### L CBCD #### [place] [address] Color (U) YELLOW Normal [facility] Comment on above: Performed By: #### L CBCD #### [facility] [address] [place] [address] Glucose Ql (U) TRACE Abnormal Negative [facility] Comment on above: Performed By: #### L CBCD #### [facility] [address] [place] [address] Hemoglobin,Urine Negative Normal Negative [facility] Comment on above: Performed By: #### L CBCD #### [place] [address] Ketone Urine Negative Normal Negative [facility] Comment on above: Performed By: #### L CBCD #### [place] [address] Leukocytes Esterase Negative Normal Negative [facility] Comment on above: Performed By: #### L CBCD #### [place] [address] Nitrites Urine Negative Normal Negative [facility] Comment on above: Performed By: #### L CBCD #### [place] [address] pH (U) 7.0 [pH] Normal 5.0-8.0 [facility] Comment on above: Performed By: #### L CBCD #### [place] [address] Protein (U) [Mass/Vol] Negative Normal Negative [facility] Comment on above: Performed By: #### L CBCD #### [place] [address] Specific [place], Ur 1.015 Normal 1.005-1 .03 0 [facility] Comment on above: Performed By: #### L CBCD #### [place] [address] Urobilinogen,Ur 0.2 EU/dL Normal 0.2-1.0 [facility] Comment on above: Performed By: #### L CBCD #### [place] [address] Troponin Ion 10-04-2018 Troponin I.cardiac [Mass/Vol] ng/mL Normal <=0.07 [facility] Comment on above: Performed By: #### L TRP ####[facility] [place], [place] [address] Urine HCG, Qual.on 9 Beta HCG ( test) Ql (U) Negative Normal Negative [facility] Comment on above: Performed By: #### L HCG2 ####[facility] [place], [place] [address] Basic Panelon 09-29-2018 Anion gap [Moles/Vol] 14 mmol/L Normal 8-20 [facility] Comment on above: Performed By: #### L GFR #### [address] [address] Calcium [Mass/Vol] 8.9 mg/dL Normal 8.5-10.1 [facility] Comment on above: Performed By: #### L GFR #### [place] [address] CO2 Blood 28 mEq/L Normal 21-32 [facility] Comment on above: Performed By: #### L GFR #### [address] [address] Creatinine [Mass/Vol] 0.60 mg/dL Normal 0.51-0.95 [facility] Comment on above: Performed By: #### L GFR #### [address] [address] Glucose [Mass/Vol] 154 mg/dL High 70-99 [facility] Comment on above: Performed By: #### L GFR #### [facility] [address] [place], [place] [address] Urea nitrogen [Mass/Vol] 5 mg/dL Low 7-25 [facility] Comment on above: Performed By: #### L GFR #### [address] [address] Urea nitrogen/Creatinine [Mass ratio] 8 mg/mg Low 10-20 [facility] Comment on above: Performed By: #### L GFR #### [address] [address] Chloride [Moles/Vol] 101 mmol/L Normal 98-109 [facility] Comment on above: Result Comment: Test ing performed on an Palacio i-STAT. Performed By: #### L GFR #### [facility] [address] [place], [place] [address] Potassium [Moles/Vol] 3.9 mmol/L Normal 3.5-4.9 [facility] Comment on above: Result Comment: Test ing performed on an Palacio i-STAT. Performed By: #### L GFR #### [facility] [address] [place], [place] [address] Sodium [Moles/Vol] 139 mmol/L Normal 138-146 [facility] Comment on above: Result Comment: Test ing performed on an Palacio i-STAT. Performed By: #### L GFR #### [place] [address] D-Dimer Quantitativeon 09-29 D-Dimer Quantitative 336 ng/mL(FEU) Normal <450 [facility] Comment on above: Result Comment: 500 ng/mL [...] Performed By: #### L DMR ####[facility] [place], [place] [address] Hemogramon 09-29-2018 Erythrocyte distribution width (RBC) [Ratio] 12.8 % Normal 11.5-15.9 [facility] Comment on above: Performed By: #### L GFR #### [facility] [address] [place] [address] Hematocrit (Bld) [Volume fraction] 46.3 % Normal 37.0-47.0 [facility] Comment on above: Performed By: #### L GFR #### [facility] [address] [place], [place] [address] Hemoglobin (Bld) [Mass/Vol] 15.7 g/dL Normal 12.0-16.0 [facility] Comment on above: Performed By: #### L GFR #### [facility] [address] [place], [place] [address] MCH (RBC) [Entitic mass] 27.8 pg Normal 27.0-31.0 [facility] Comment on above: Performed By: #### L GFR #### [facility] [address] [place] [address] MCHC (RBC) [Mass/Vol] 33.9 % Normal 32.0-36.0 [facility] Comment on above: Performed By: #### L GFR #### [place] [address] MCV (RBC) [Entitic vol] 81.9 fL Normal 81.0-99.0 [facility] Comment on above: Performed By: #### L GFR #### [facility] [address] [place] [address] Platelet mean volume (Bld) [Entitic vol] 10.0 fL Normal 7.1-10.5 [facility] Comment on above: Performed By: #### L GFR #### [facility] [address] [place], [place] [address] Platelets (Bld) [#/Vol] 231 thou/cmm Normal 150-400 [facility] Comment on above: Performed By: #### L GFR #### [facility] [address] [place], [place] [address] RBC (Bld) [#/Vol] 5.65 mil/cmm High 4.20-5.40 [facility] Comment on above: Performed By: #### L GFR #### [address] [address] WBC (Bld) [#/Vol] 10.8 thou/cmm High 4.8-10.5 [facility] Comment on above: Performed By: #### L GFR #### [facility] [address] [place], [place] [address] MDRD eGFRon 09-29-2018 GFR/1.73 sq M predicted among non-blacks MDRD (S/P/Bld) [Vol rate/Area] mL/min/{1.73_m2} Normal >60mL/min/ 1.73m2 [facility] Comment on above: Result Comment: If t he patient is , multiply the result by 1.210. Performed By: #### L GFR ####[place] [address] Troponin Ion 09-29-2018 Troponin I.cardiac [Mass/Vol] ng/mL Normal <=0.07 [facility] Comment on above: Performed By: #### L TRP ####[place] [address] Troponin I.cardiac [Mass/Vol] ng/mL Normal <=0.07 [facility] Comment on above: Performed By: #### L TRP ####[place] [address] Basic Panelon 09-25-2018 Creatinine [Mass/Vol] 0.64 mg/dL Normal 0.51-0.95 [facility] Comment on above: Performed By: #### L GFR #### [place] [address] Anion gap [Moles/Vol] 10 mmol/L Normal 8-16 [facility] Comment on above: Performed By: #### L GFR #### [place] [address] CO2 [Moles/Vol] 26 mmol/L Normal 21-32 [facility] Comment on above: Performed By: #### L GFR #### [place] [address] Glucose [Mass/Vol] 87 mg/dL Normal 70-99 [facility] Comment on above: Performed By: #### L GFR #### [place] [address] Urea nitrogen [Mass/Vol] 13 mg/dL Normal 7-18 [facility] Comment on above: Performed By: #### L GFR #### [facility] [address] [place] [address] Calcium [Mass/Vol] 8.9 mg/dL Normal 8.5-10.1 [facility] Comment on above: Performed By: #### L GFR #### [facility] [address] [place] [address] Chloride [Moles/Vol] 104 mmol/L Normal 98-107 [facility] Comment on above: Performed By: #### L GFR #### [place] [address] Potassium [Moles/Vol] 3.6 mmol/L Normal 3.5-5.1 [facility] Comment on above: Performed By: #### L GFR #### [place] [address] Sodium [Moles/Vol] 136 mmol/L Normal 136-145 [facility] Comment on above: Performed By: #### L GFR #### [place] [address] Glucose Meteron 09-25-2018 Glucose [Mass/Vol] 205 mg/dL High 70-99 [facility] Comment on above: Result Comment: CHAYITO MÉNDEZ Performed By: #### L P14 #### [place] [address] Hemogram/Diffon 09-25-2018 Abs Immature Grans 0.04 thou/cmm Normal 0.00-0.05 [facility] Comment on above: Performed By: #### L GFR #### [place] [address] Abs. Baso 0.06 thou/cmm Normal 0.01-0.08 [facility] Comment on above: Result Comment: Smea r scanned; tech agrees with automated differential Performed By: #### L GFR #### [place] [address] Abs. Wilkinson 0.72 thou/cmm High 0.27-0.70 [facility] Comment on above: Performed By: #### L GFR #### [facility] [address] [place], [place] [address] Abs. Neut (ANC) 7.66 thou/cmm High 1.56-6.13 [facility] Comment on above: Performed By: #### L GFR #### [facility] [address] [place], [place] [address] Basophils/100 WBC (Bld) 0.5 % Normal [facility] Comment on above: Performed By: #### L GFR #### [facility] [address] [place], [place] [address] Eosinophils (Bld) [#/Vol] 0.13 thou/cmm Normal 0.00-0.31 [facility] Comment on above: Performed By: #### L GFR #### [address] [address] Eosinophils/100 WBC (Bld) 1.0 % Normal [facility] Comment on above: Performed By: #### L GFR #### [address] [address] Immature Grans 0.30 % Normal [facility] Comment on above: Performed By: #### L GFR #### [address] [address] Lymphocytes (Bld) [#/Vol] 4.07 thou/cmm High 1.18-3.74 [facility] Comment on above: Performed By: #### L GFR #### [facility] [address] [place], [place] [address] Lymphocytes/100 WBC (Bld) 32.1 % Normal [facility] Comment on above: Performed By: #### L GFR #### [facility] [address] [place], [place] [address] Monocytes/100 WBC (Bld) 5.7 % Normal [facility] Comment on above: Performed By: #### L GFR #### [address] [address] Seg Neutrophil 60.4 % Normal [employer] [facility] Comment on above: Performed By: #### L GFR #### [facility] [address] [place], [place] [address] Erythrocyte distribution width (RBC) [Ratio] 12.5 % Normal 11.7-14.4 [facility] Comment on above: Performed By: #### L GFR #### [facility] [address] [place], [place] [address] Hematocrit (Bld) [Volume fraction] 49.4 % High 34.1-44.9 [facility] Comment on above: Performed By: #### L GFR #### [facility] [address] [place], [place] [address] Hemoglobin (Bld) [Mass/Vol] 16.6 g/dL High 11.2-15.7 [facility] Comment on above: Performed By: #### L GFR #### [facility] [address] [place] [address] MCH (RBC) [Entitic mass] 27.8 pg Normal 25.6-32.2 [facility] Comment on above: Performed By: #### L GFR #### [facility] [address] [place] [address] MCHC (RBC) [Mass/Vol] 33.6 % Normal 31.6-34.8 [facility] Comment on above: Performed By: #### L GFR #### [facility] [address] [place] [address] MCV (RBC) [Entitic vol] 82.7 fL Normal 79.4-94.8 [facility] Comment on above: Performed By: #### L GFR #### [facility] [address] [place], [place] [address] Platelet mean volume (Bld) [Entitic vol] 9.8 fL Normal 9.4-12.3 [facility] Comment on above: Performed By: #### L GFR #### [facility] [address] [place], [place] [address] Platelets (Bld) [#/Vol] 241 thou/cmm Normal 182-369 [facility] Comment on above: Performed By: #### L GFR #### [place] [address] RBC (Bld) [#/Vol] 5.97 mil/cmm High 3.93-5.22 [facility] Comment on above: Performed By: #### L GFR #### [facility] [address] [place] [address] RDW SD 37.4 fl Normal 36.4-46.3 [facility] Comment on above: Performed By: #### L GFR #### [facility] [address] [place] [address] WBC (Bld) [#/Vol] 12.69 thou/cmm High 3.98-10.04 [facility] Comment on above: Performed By: #### L GFR #### [place] [address] MDRD GFRon 09-25-2018 GFR/1.73 sq M predicted among non-blacks MDRD (S/P/Bld) [Vol rate/Area] mL/min/{1.73_m2} Normal >60mL/min/ 1.73m2 [facility] Comment on above: Result Comment: If t he patient is , multiply the result by 1.210. Performed By: #### L GFR #### [place] [address] Urinalysis, reflexon 019 Reflex Comment see below Normal [facility] Comment on above: Result Comment: Refl ex to culture is not indicated based on established laboratory criteria. Performed By: #### L GFR #### [place] [address] Bacteria LM.HPF (Urine sed) [#/Area] NONE Normal None [facility] Comment on above: Performed By: #### L GFR #### [facility] [address] [place] [address] Ep Cells Urine 13.9 /hpf High 0.0-5.0 [facility] Comment on above: Performed By: #### L GFR #### [place] [address] Hyaline Cast 2.4 /lpf High 0.0-1.0 [facility] Comment on above: Performed By: #### L GFR #### [facility] [address] [place] [address] RBC LM.HPF (Urine sed) [#/Area] 1.3 /[HPF] Normal 0.0-5.0 [facility] Comment on above: Performed By: #### L GFR #### [place] [address] WBC, reflex 2.90 /hpf Normal 0.00-5.00 [facility] Comment on above: Performed By: #### L GFR #### [place] [address] Appearance (U) CLOUDY Normal [facility] Comment on above: Performed By: #### L GFR #### [place] [address] Bilirubin (U) [Mass/Vol] see below Abnormal Negative [facility] Comment on above: Result Comment: Dete cted (Unable to confirm). Performed By: #### L GFR #### [place] [address] Color (U) DK YELLOW Normal [facility] Comment on above: Performed By: #### L GFR #### [place] [address] Glucose Ql (U) 250 mg/dL Abnormal Negative [facility] Comment on above: Performed By: #### L GFR #### [place] [address] Hemoglobin,Urine Negative Normal Negative [facility] Comment on above: Performed By: #### L GFR #### [place] [address] Ketone Urine TRACE Abnormal Negative [facility] Comment on above: Performed By: #### L GFR #### [place] [address] Leukocyte esterase Test strip Ql (U) TRACE Abnormal Negative [facility] [employer] [facility] Comment on above: Performed By: #### L GFR #### [place] [address] Nitrite reflex Negative Normal Negative [facility] Comment on above: Performed By: #### L GFR #### [facility] [address] [place] [address] pH (U) 6.0 [pH] Normal 5.0-8.0 [facility] Comment on above: Performed By: #### L GFR #### [facility] [address] [place], [place] [address] Protein (U) [Mass/Vol] TRACE Abnormal Negative [facility] Comment on above: Performed By: #### L GFR #### [facility] [address] [place] [address] Specific [place], Ur 1.030 Normal 1.005-1 .03 0 [facility] Comment on above: Performed By: #### L GFR #### [facility] [address] [place] [address] Urobilinogen,Ur 1.0 EU/dL Normal 0.0-1.0 [facility] Comment on above: Performed By: #### L GFR #### [place] [address] Comprehensive Panelon 2018 ALP [Catalytic activity/Vol] 114 U/L Normal 46-116 [facility] Comment on above: Performed By: #### L GFR #### [facility] [address] [place], [place] [address] Bilirubin [Mass/Vol] 1.4 mg/dL High 0.2-1.0 [facility] Comment on above: Performed By: #### L GFR #### [facility] [address] [place] [address] AST [Catalytic activity/Vol] 19 U/L Normal 9-37 [facility] Comment on above: Performed By: #### L GFR #### [facility] [address] [place], [place] [address] Creatinine [Mass/Vol] 0.56 mg/dL Normal 0.51-0.95 [facility] Comment on above: Performed By: #### L GFR #### [place] [address] Protein [Mass/Vol] 6.8 g/dL Normal 6.4-8.2 [facility] Comment on above: Performed By: #### L GFR #### [facility] [address] [place], [place] [address] ALT [Catalytic activity/Vol] 18 U/L Normal 12-78 [facility] Comment on above: Performed By: #### L GFR #### [facility] [address] [place], [place] [address] Glucose [Mass/Vol] 266 mg/dL High 70-99 [facility] Comment on above: Performed By: #### L GFR #### [facility] [address] [place], [place] [address] Albumin [Mass/Vol] 3.2 g/dL Low 3.4-5.0 [facility] Comment on above: Performed By: #### L GFR #### [facility] [address] [place], [place] [address] Anion gap [Moles/Vol] 11 mmol/L Normal 8-16 [facility] Comment on above: Performed By: #### L GFR #### [facility] [address] [place], [place] [address] Calcium [Mass/Vol] 8.9 mg/dL Normal 8.5-10.1 [facility] Comment on above: Performed By: #### L GFR #### [facility] [address] [place], [place] [address] CO2 [Moles/Vol] 25 mmol/L Normal 21-32 [facility] Comment on above: Performed By: #### L GFR #### [facility] [address] [place], [place] [address] Urea nitrogen [Mass/Vol] 8 mg/dL Normal 7-18 [facility] Comment on above: Performed By: #### L GFR #### [facility] [address] [place], [place] [address] Chloride [Moles/Vol] 100 mmol/L Normal 98-107 [facility] Comment on above: Performed By: #### L GFR #### [facility] [address] [place], [place] [address] Potassium [Moles/Vol] 3.9 mmol/L Normal 3.5-5.1 [facility] Comment on above: Performed By: #### L GFR #### [facility] [address] [place] [address] Sodium [Moles/Vol] 132 mmol/L Low 136-145 [facility] Comment on above: Performed By: #### L GFR #### [facility] [address] [place] [address] Hemogramon 09-24-2018 Erythrocyte distribution width (RBC) [Ratio] 12.6 % Normal 11.7-14.4 [facility] Comment on above: Performed By: #### L GFR #### [place] [address] Hematocrit (Bld) [Volume fraction] 47.5 % High 34.1-44.9 [facility] Comment on above: Performed By: #### L GFR #### [place] [address] Hemoglobin (Bld) [Mass/Vol] 15.9 g/dL High 11.2-15.7 [facility] Comment on above: Performed By: #### L GFR #### [place] [address] MCH (RBC) [Entitic mass] 27.7 pg Normal 25.6-32.2 [facility] Comment on above: Performed By: #### L GFR #### [place] [address] MCHC (RBC) [Mass/Vol] 33.5 % Normal 31.6-34.8 [facility] Comment on above: Performed By: #### L GFR #### [place] [address] MCV (RBC) [Entitic vol] 82.8 fL Normal 79.4-94.8 [facility] Comment on above: Performed By: #### L GFR #### [place] [address] Platelet mean volume (Bld) [Entitic vol] 9.9 fL Normal 9.4-12.3 [facility] Comment on above: Performed By: #### L GFR #### [facility] [address] [place], [place] [address] Platelets (Bld) [#/Vol] 248 thou/cmm Normal 182-369 [facility] Comment on above: Performed By: #### L GFR #### [facility] [address] [place], [place] [address] RBC (Bld) [#/Vol] 5.74 mil/cmm High 3.93-5.22 [facility] Comment on above: Performed By: #### L GFR #### [facility] [address] [place], [place] [address] RDW SD 38.0 fl Normal 36.4-46.3 [facility] Comment on above: Performed By: #### L GFR #### [facility] [address] [place], [place] [address] WBC (Bld) [#/Vol] 11.62 thou/cmm High 3.98-10.04 [facility] Comment on above: Performed By: #### L GFR #### [facility] [address] [place], [place] [address] Lipid Profileon 09-24-2018 Cholesterol in HDL [Mass/Vol] 35 mg/dL Normal >40 [facility] Comment on above: Performed By: #### L GFR #### [facility] [address] [place] [address] Cholesterol in LDL [Mass/Vol] 120 mg/dL Normal [facility] Comment on above: Result Comment: No C AD and with fewer than 2 CAD risk factors <160 mg/dL No CAD but with 2 or more CAD risk factors <130 mg/dL Definite CAD or other atherosclerotic disease <100 mg/dL Performed By: #### L GFR #### [facility] [address] [place], [place] [address] Cholesterol in LDL/Cholesterol in HDL [Mass ratio] 3.4 Normal 0.6-3.6 [facility] Comment on above: Result Comment: LDL, VLDL,LDL/HDL, Invalid if Triglyceride >400 Performed By: #### L GFR #### [facility] [address] [place], [place] [address] Cholesterol.total/Pipe sterol in HDL [Mass ratio] 5.9 {ratio} High 1.8-5.3 [facility] Comment on above: Performed By: #### L GFR #### [facility] [address] [place], [place] [address] Cholesterol [Mass/Vol] 205 mg/dL High 0-199 [facility] Comment on above: Result Comment: <200 Desirable 200-240 Borderline >240 High Performed By: #### L GFR #### [facility] [address] [place], [place] [address] Cholesterol in VLDL [Mass/Vol] 50 mg/dL Normal <50 Desired [facility] Comment on above: Performed By: #### L GFR #### [facility] [address] [place], [place] [address] Triglyceride [Mass/Vol] 252 mg/dL High 0-149 [facility] Comment on above: Result Comment: < 20 0 Desirable Result invalid if not a fasting specimen. Performed By: #### L GFR #### [facility] [address] [place], [place] [address] Protimeon 09-24-2018 INR Coag (PPP) [Relative time] 0.97 {INR} Normal 0.90-1.30 [facility] Comment on above: Result Comment: Charissa min K Antagonist (VKA) Therapeutic Range: INR 2 to 3 (Target INR of 2.5) Note: For patients treated with VKA drugs, such as warfarin, the [employer] 2012 Guideline recommends [...] Chest 2012; 141:7S-47S Sampson SOMMERS et al. [facility] 2017; 70: 252-289 Performed By: #### L GFR #### [place] [address] PT Coag (PPP) [Time] 10.1 s Normal 9.7-13.0 [facility] Comment on above: Performed By: #### L GFR #### [place] [address] Beta Hydroxybutyrateon 09-23 Beta Hydroxybutyrate 0.70 mmol/L High <0.10-0.27 [facility] Comment on above: Performed By: #### L LIP #### [place] [address] CPKon 09-23-2018 CK [Catalytic activity/Vol] 58 U/L Normal 26-192 [facility] Comment on above: Performed By: #### L P14 #### [place] [address] Comprehensive Panelon 2018 Anion gap [Moles/Vol] 19 mmol/L Normal 8-20 [facility] Comment on above: Performed By: #### L LIP #### [place] [address] Glucose [Mass/Vol] 422 mg/dL Critically high 70-99 [facility] Comment on above: Result Comment: RESU LT RECHECKED Performed By: #### L LIP #### [place] [address] Chloride [Moles/Vol] 98 mmol/L Normal 98-109 [facility] Comment on above: Result Comment: Test ing performed on an [employer] i-STAT. Performed By: #### L LIP #### [place] [address] Potassium [Moles/Vol] 3.9 mmol/L Normal 3.5-4.9 [facility] Comment on above: Result Comment: Test ing performed on an [employer] i-STAT. Performed By: #### L LIP #### [place] [address] Sodium [Moles/Vol] 135 mmol/L Low 138-146 [facility] Comment on above: Result Comment: Test ing performed on an BMP [employer] i-STAT. Performed By: #### L LIP #### [facility] [address] [place] [address] Albumin [Mass/Vol] 3.6 g/dL Normal 3.4-5.0 [facility] Comment on above: Performed By: #### L LIP #### [facility] [address] [place] [address] ALP [Catalytic activity/Vol] 131 U/L High 46-116 [facility] Comment on above: Performed By: #### L LIP #### [place] [address] ALT-SGPT Blood 21 U/L Normal 14-63 [facility] Comment on above: Performed By: #### L LIP #### [place] [address] AST-SGOT Blood 28 U/L Normal 15-37 [facility] Comment on above: Performed By: #### L LIP #### [place] [address] Bilirubin Ql (U) 1.2 mg/dL High 0.2-1.0 [facility] Comment on above: Performed By: #### L LIP #### [place] [address] Calcium [Mass/Vol] 9.3 mg/dL Normal 8.5-10.1 [facility] Comment on above: Performed By: #### L LIP #### [facility] [address] [place] [address] CO2 Blood 26 mEq/L Normal 21-32 [facility] Comment on above: Performed By: #### L LIP #### [place] [address] Creatinine [Mass/Vol] 0.51 mg/dL Normal 0.51-0.95 [facility] Comment on above: Performed By: #### L LIP #### [place] [address] Protein [Mass/Vol] 7.7 g/dL Normal 6.4-8.2 [facility] Comment on above: Performed By: #### L LIP #### [facility] [address] [place], [place] [address] Urea nitrogen [Mass/Vol] 9 mg/dL Normal 7-25 [facility] Comment on above: Performed By: #### L LIP #### [facility] [address] [place], [place] [address] Urea nitrogen/Creatinine [Mass ratio] 18 mg/mg Normal 10-20 [facility] Comment on above: Performed By: #### L LIP #### [facility] [address] [place], [place] [address] D-Dimer Quantitativeon 09-23 D-Dimer Quantitative 417 ng/mL(FEU) Normal <450 [facility] Comment on above: Result Comment: 500 ng/mL [...] By: #### L P14 #### [facility] [address] [place], [place] [address] Glucose Bloodon 09-23-2018 Glucose [Mass/Vol] 393 mg/dL High 70-99 [facility] Comment on above: Performed By: #### L P14 #### [facility] [address] [place], [place] [address] Glucose Meteron 09-23-2018 Glucose [Mass/Vol] 317 mg/dL High 70-99 [facility] Comment on above: Result Comment: CHAYITO MÉNDEZ MD NOTIFIED [place] [address] Performed By: #### L LIP #### [place] [address] Hemogram/Diffon 09-23-2018 Abs. Baso 0.05 thou/cmm Normal 0.00-0.08 [facility] Comment on above: Performed By: #### L LIP #### [place] [address] Abs. Wilkinson 0.38 thou/cmm Normal 0.20-1.00 [facility] Comment on above: Performed By: #### L LIP #### [place] [address] Abs. Neut (ANC) 8.10 thou/cmm High 3.00-5.67 [facility] Comment on above: Performed By: #### L LIP #### [place] [address] Basophils/100 WBC (Bld) 0.5 % Normal A [facility] Comment on above: Performed By: #### L LIP #### [place] [address] Eosinophils (Bld) [#/Vol] 0.05 thou/cmm Normal 0.00-0.41 [facility] Comment on above: Performed By: #### L LIP #### [place] [address] Eosinophils/100 WBC (Bld) 0.5 % Normal [facility] Comment on above: Performed By: #### L LIP #### [place] [address] Erythrocyte distribution width (RBC) [Ratio] 12.9 % Normal 11.5-15.9 [facility] Comment on above: Performed By: #### L LIP #### [place] [address] Hematocrit (Bld) [Volume fraction] 47.8 % High 37.0-47.0 [facility] Comment on above: Performed By: #### L LIP #### [address], [place] [address] Hemoglobin (Bld) [Mass/Vol] 16.5 g/dL High 12.0-16.0 [facility] Comment on above: Performed By: #### L LIP #### [facility] 1 [place], [place] [address] Lymphocytes (Bld) [#/Vol] 1.52 thou/cmm Normal 1.50-3.65 [facility] Comment on above: Performed By: #### L LIP #### [facility] [address] [place], [place] [address] Lymphocytes/100 WBC (Bld) 15.0 % Normal [facility] Comment on above: Performed By: #### L LIP #### [facility] [address] [place], [place] [address] MCH (RBC) [Entitic mass] 28.0 pg Normal 27.0-31.0 [facility] Comment on above: Performed By: #### L LIP #### [place] [address] MCHC (RBC) [Mass/Vol] 34.5 % Normal 32.0-36.0 [facility] Comment on above: Performed By: #### L LIP #### [address] [address] MCV (RBC) [Entitic vol] 81.0 fL Normal 81.0-99.0 [facility] Comment on above: Performed By: #### L LIP #### [address] [address] Monocytes/100 WBC (Bld) 3.8 % Normal [facility] Comment on above: Performed By: #### L LIP #### [facility] 1 [place], [place] [address] Platelet mean volume (Bld) [Entitic vol] 10.2 fL Normal 7.1-10.5 [facility] Comment on above: Performed By: #### L LIP #### [address] [address] Platelets (Bld) [#/Vol] 202 thou/cmm Normal 150-400 [facility] Comment on above: Performed By: #### L LIP #### [facility] [address] [place], [place] [address] RBC (Bld) [#/Vol] 5.90 mil/cmm High 4.20-5.40 [facility] Comment on above: Performed By: #### L LIP #### [facility] [address] [place], [place] [address] Seg Neutrophil 80.2 % Normal [facility] Comment on above: Performed By: #### L LIP #### [facility] [address] [place], [place] [address] WBC (Bld) [#/Vol] 10.1 thou/cmm Normal 4.8-10.8 [facility] Comment on above: Performed By: #### L LIP #### [place] [address] Hgb A1con 09-23-2018 HbA1c (Bld) [Mass fraction] 11.6 % High 4.2-6.3 [facility] Comment on above: Result Comment: Meth od is National Glycohemoglobin Standardization Program (NGSP) compliant. Performed By: #### L P14 #### [facility] [address] [place] [address] HbA1c (Bld) [Mass fraction] 286 mg/dl Normal [facility] Comment on above: Performed By: #### L P14 #### [place] [address] Lipase Bloodon 09-23-2018 Lipase Blood 131 U/L Normal 73-393 [facility] Comment on above: Performed By: #### L LIP #### [facility] [address] [place] [address] MDRD eGFRon 09-23-2018 GFR/1.73 sq M predicted among non-blacks MDRD (S/P/Bld) [Vol rate/Area] mL/min/{1.73_m2} Normal >60mL/min/ 1.73m2 [facility] Comment on above: Result Comment: If t he patient is , multiply the result by 1.210. Performed By: #### L LIP #### [facility] 1 [place], [place] [address] Magnesium Bloodon 09-23-2018 Magnesium [Mass/Vol] 2.1 mg/dL Normal 1.6-2.6 [facility] Comment on above: Performed By: #### L P14 #### [place] [address] N-terminal Pro-BNPon 019 Natriuretic peptide B (Bld) [Mass/Vol] 2027 pg/mL Normal [facility] Comment on above: Result Comment: Acut e CHF Rule-in <50 yrs old >= 450 pg/ml >50 yrs old >= 900 pg/ml Abnormal Pro-BNP All patients >=300 pg/ml Performed By: #### L P14 #### [place] [address] Troponin Ion 09-23-2018 Troponin I.cardiac [Mass/Vol] ng/mL Normal 0.015-0.04 5 [facility] Comment on above: Performed By: #### L P14 #### [place] [address] Troponin I.cardiac [Mass/Vol] ng/mL Normal 0.015-0.04 5 [facility] Comment on above: Performed By: #### L P14 #### [place] [address] Troponin I.cardiac [Mass/Vol] ng/mL Normal <=0.07 [facility] Comment on above: Performed By: #### L P14 #### [place] [address] Troponin I.cardiac [Mass/Vol] ng/mL Normal <=0.07 [facility] Comment on above: Performed By: #### L LIP #### [place] [address] Comprehensive Panelon 2018 Albumin [Mass/Vol] 3.8 g/dL Normal 3.4-5.0 [facility] Comment on above: Performed By: #### L MCBD #### [place] [address] ALP [Catalytic activity/Vol] 133 U/L High 46-116 [facility] Comment on above: Performed By: #### L MCBD #### [facility] [address] [place], [place] [address] ALT-SGPT Blood 20 U/L Normal 14-63 [facility] Comment on above: Performed By: #### L MCBD #### [facility] [address] [place] [address] AST-SGOT Blood 17 U/L Normal 15-37 [facility] Comment on above: Performed By: #### L MCBD #### [facility] [address] [place] [address] Bilirubin Ql (U) 0.8 mg/dL Normal 0.2-1.0 [facility] Comment on above: Performed By: #### L MCBD #### [facility] [address] [place] [address] Calcium [Mass/Vol] 9.4 mg/dL Normal 8.5-10.1 [facility] Comment on above: Performed By: #### L MCBD #### [facility] [address] [place] [address] Creatinine [Mass/Vol] 0.58 mg/dL Normal 0.51-0.95 [facility] Comment on above: Performed By: #### L MCBD #### [facility] [address] [place] [address] Glucose [Mass/Vol] 375 mg/dL High 70-99 [facility] Comment on above: Performed By: #### L MCBD #### [facility] [address] [place], [place] [address] Protein [Mass/Vol] 7.9 g/dL Normal 6.4-8.2 [facility] Comment on above: Performed By: #### L MCBD #### [facility] [address] [place] [address] Urea nitrogen [Mass/Vol] 5 mg/dL Low 7-25 [facility] Comment on above: Performed By: #### L MCBD #### [facility] [address] [place] [address] Urea nitrogen/Creatinine [Mass ratio] 9 mg/mg Low 10-20 [facility] Comment on above: Performed By: #### L MCBD #### [facility] [address] [place] [address] Anion gap [Moles/Vol] 15 mmol/L Normal 8-20 [facility] Comment on above: Performed By: #### L MCBD #### [facility] [address] [place] [address] CO2 Blood 27 mEq/L Normal 21-32 [facility] Comment on above: Performed By: #### L MCBD #### [facility] [address] [place] [address] Chloride [Moles/Vol] 97 mmol/L Low 98-109 [facility] Comment on above: Result Comment: Test ing performed on an [employer] i-STAT. Performed By: #### L MCBD #### [place] [address] Potassium [Moles/Vol] 4.5 mmol/L Normal 3.5-4.9 [facility] Comment on above: Result Comment: Test ing performed on an [employer] i-STAT. Performed By: #### L MCBD #### [place] [address] Sodium [Moles/Vol] 135 mmol/L Low 138-146 [facility] Comment on above: Result Comment: Test ing performed on an [employer] i-STAT. Performed By: #### L MCBD #### [facility] [address] [place] [address] Hemogram/Diffon 09-06-2018 Abs. Baso 0.05 thou/cmm Normal 0.00-0.08 [facility] Comment on above: Performed By: #### L MCBD #### [place] [address] Abs. Wilkinson 0.43 thou/cmm Normal 0.20-1.00 [facility] Comment on above: Performed By: #### L MCBD #### [place] [address] Abs. Neut (ANC) 5.29 thou/cmm Normal 3.00-5.67 [facility] Comment on above: Performed By: #### L MCBD #### [facility] [address] [place], [place] [address] Basophils/100 WBC (Bld) 0.7 % Normal [facility] Comment on above: Performed By: #### L MCBD #### [facility] [address] [place] [address] Eosinophils (Bld) [#/Vol] 0.11 thou/cmm Normal 0.00-0.41 [facility] Comment on above: Performed By: #### L MCBD #### [facility] [address] [place] [address] Eosinophils/100 WBC (Bld) 1.4 % Normal [facility] Comment on above: Performed By: #### L MCBD #### [place] [address] Erythrocyte distribution width (RBC) [Ratio] 12.9 % Normal 11.5-15.9 [facility] Comment on above: Performed By: #### L MCBD #### [facility] [address] [place] [address] Hematocrit (Bld) [Volume fraction] 48.3 % High 37.0-47.0 [facility] Comment on above: Performed By: #### L MCBD #### [facility] [address] [place] [address] Hemoglobin (Bld) [Mass/Vol] 16.4 g/dL High 12.0-16.0 [facility] Comment on above: Performed By: #### L MCBD #### [facility] [address] [place] [address] Lymphocytes (Bld) [#/Vol] 1.72 thou/cmm Normal 1.50-3.65 [facility] Comment on above: Performed By: #### L MCBD #### [address] [address] Lymphocytes/100 WBC (Bld) 22.6 % Normal [facility] Comment on above: Performed By: #### L MCBD #### [facility] [address] [place], [place] [address] MCH (RBC) [Entitic mass] 27.8 pg Normal 27.0-31.0 [facility] Comment on above: Performed By: #### L MCBD #### [facility] [address] [place], [place] [address] MCHC (RBC) [Mass/Vol] 34.0 % Normal 32.0-36.0 [facility] Comment on above: Performed By: #### L MCBD #### [facility] [address] [place] [address] MCV (RBC) [Entitic vol] 82.0 fL Normal 81.0-99.0 [facility] Comment on above: Performed By: #### L MCBD #### [place] [address] Monocytes/100 WBC (Bld) 5.7 % Normal [facility] Comment on above: Performed By: #### L MCBD #### [facility] [address] [place] [address] Platelet mean volume (Bld) [Entitic vol] 10.2 fL Normal 7.1-10.5 [facility] Comment on above: Performed By: #### L MCBD #### [place] [address] Platelets (Bld) [#/Vol] 211 thou/cmm Normal 150-400 [facility] Comment on above: Performed By: #### L MCBD #### [address] [address] RBC (Bld) [#/Vol] 5.89 mil/cmm High 4.20-5.40 [facility] Comment on above: Performed By: #### L MCBD #### [facility] [address] [place] [address] Seg Neutrophil 69.6 % Normal [facility] Comment on above: Performed By: #### L MCBD #### [place] [address] WBC (Bld) [#/Vol] 7.6 thou/cmm Normal 4.8-10.8 [facility] Comment on above: Performed By: #### L MCBD #### [facility] [address] [place] [address] Ketoneson 09-06-2018 Ketones Ql (U) Negative Normal Negative [facility] Comment on above: Performed By: #### L MCBD #### [place] [address] Lipase Bloodon 09-06-2018 Lipase Blood 112 U/L Normal 73-393 [facility] Comment on above: Performed By: #### L LIP #### [place] [address] MDRD eGFRon 09-06-2018 GFR/1.73 sq M predicted among non-blacks MDRD (S/P/Bld) [Vol rate/Area] mL/min/{1.73_m2} Normal >60mL/min/ 1.73m2 [facility] Comment on above: Result Comment: If t he patient is , multiply the result by 1.210. Performed By: #### L LIP #### [place] [address] Macroscopic Urinalysison Appearance (U) CLEAR Normal [facility] Comment on above: Performed By: #### L LIP #### [place] [address] Bilirubin Urine Negative Normal Negative [facility] Comment on above: Performed By: #### L LIP #### [place] [address] Color (U) YELLOW Normal [facility] Comment on above: Performed By: #### L LIP #### [place] [address] Glucose Ql (U) 2+ Abnormal Negative [facility] Comment on above: Performed By: #### L LIP #### [place] [address] Hemoglobin,Urine Negative Normal Negative [facility] Comment on above: Performed By: #### L LIP #### [facility] [address] [place] [address] Ketone Urine Negative Normal Negative [facility] Comment on above: Performed By: #### L LIP #### [facility] [address] [place] [address] Leukocytes Esterase Negative Normal Negative [facility] Comment on above: Performed By: #### L LIP #### [facility] [address] [place] [address] Nitrites Urine Negative Normal Negative [facility] Comment on above: Performed By: #### L LIP #### [facility] [address] [place] [address] pH (U) 7.0 [pH] Normal 5.0-8.0 [facility] Comment on above: Performed By: #### L LIP #### [facility] [address] [place] [address] Protein (U) [Mass/Vol] Negative Normal Negative [facility] Comment on above: Performed By: #### L LIP #### [facility] [address] [place] [address] Specific [place], Ur 1.020 Normal 1.005-1 .03 0 [facility] Comment on above: Performed By: #### L LIP #### [facility] [address] [place] [address] Urobilinogen,Ur 0.2 EU/dL Normal 0.0-1.0 [facility] Comment on above: Performed By: #### L LIP #### [place] [address] Basic Panelon 08-16-2018 Anion gap [Moles/Vol] 16 mmol/L Normal 8-20 [facility] Comment on above: Performed By: #### L MCBD #### [place] [address] Chloride [Moles/Vol] 99 mmol/L Normal 98-109 [facility] Comment on above: Result Comment: Test ing performed on an BMP [employer] i-STAT. Performed By: #### L MCBD #### [place] [address] Potassium [Moles/Vol] 3.9 mmol/L Normal 3.5-4.9 [facility] Comment on above: Result Comment: Test ing performed on an [employer] i-STAT. Performed By: #### L MCBD #### [facility] [address] [place], [place] [address] Sodium [Moles/Vol] 137 mmol/L Low 138-146 [facility] Comment on above: Result Comment: Test ing performed on an [employer] i-STAT. Performed By: #### L MCBD #### [facility] [address] [place], [place] [address] Calcium [Mass/Vol] 9.3 mg/dL Normal 8.5-10.1 [facility] Comment on above: Performed By: #### L MCBD #### [address] [address] CO2 Blood 26 mEq/L Normal 21-32 [facility] Comment on above: Performed By: #### L MCBD #### [address] [address] Creatinine [Mass/Vol] 0.57 mg/dL Normal 0.51-0.95 [facility] Comment on above: Performed By: #### L MCBD #### [address] [address] Glucose [Mass/Vol] 336 mg/dL High 70-99 [facility] Comment on above: Performed By: #### L MCBD #### [address] [address] Urea nitrogen [Mass/Vol] 7 mg/dL Normal 7-25 [facility] Comment on above: Performed By: #### L MCBD #### [address] [address] Urea nitrogen/Creatinine [Mass ratio] 12 mg/mg Normal 10-20 [facility] Comment on above: Performed By: #### L MCBD #### [address] [address] Hemogram/Diffon 08-16-2018 Abs. Baso 0.08 thou/cmm Normal 0.00-0.08 [facility] Comment on above: Performed By: #### L MCBD #### [facility] [address] [place], [place] [address] Abs. Wilkinson 0.61 thou/cmm Normal 0.20-1.00 [facility] Comment on above: Performed By: #### L MCBD #### [facility] [address] [place] [address] Abs. Neut (ANC) 8.11 thou/cmm High 3.00-5.67 [facility] Comment on above: Performed By: #### L MCBD #### [place] [address] Basophils/100 WBC (Bld) 0.7 % Normal A [facility] Comment on above: Performed By: #### L MCBD #### [place] [address] Eosinophils (Bld) [#/Vol] 0.07 thou/cmm Normal 0.00-0.41 [facility] Comment on above: Performed By: #### L MCBD #### [place] [address] Eosinophils/100 WBC (Bld) 0.6 % Normal [facility] Comment on above: Performed By: #### L MCBD #### [facility] [address] [place] [address] Erythrocyte distribution width (RBC) [Ratio] 12.9 % Normal 11.5-15.9 [facility] Comment on above: Performed By: #### L MCBD #### [facility] [address] [place] [address] Hematocrit (Bld) [Volume fraction] 46.9 % Normal 37.0-47.0 [facility] Comment on above: Performed By: #### L MCBD #### [facility] [address] [place] [address] Hemoglobin (Bld) [Mass/Vol] 16.3 g/dL High 12.0-16.0 [facility] Comment on above: Performed By: #### L MCBD #### [facility] [address] [place], [place] [address] Lymphocytes (Bld) [#/Vol] 2.63 thou/cmm Normal 1.50-3.65 [facility] Comment on above: Performed By: #### L MCBD #### [facility] [address] [place], [place] [address] Lymphocytes/100 WBC (Bld) 22.9 % Normal [facility] Comment on above: Performed By: #### L MCBD #### [facility] [address] [place], [place] [address] MCH (RBC) [Entitic mass] 28.0 pg Normal 27.0-31.0 [facility] Comment on above: Performed By: #### L MCBD #### [facility] [address] [place], [place] [address] MCHC (RBC) [Mass/Vol] 34.8 % Normal 32.0-36.0 [facility] Comment on above: Performed By: #### L MCBD #### [facility] [address] [place], [place] [address] MCV (RBC) [Entitic vol] 80.4 fL Low 81.0-99.0 [facility] Comment on above: Performed By: #### L MCBD #### [facility] [address] [place], [place] [address] Monocytes/100 WBC (Bld) 5.3 % Normal A [facility] Comment on above: Performed By: #### L MCBD #### [facility] [address] [place], [place] [address] Platelet mean volume (Bld) [Entitic vol] 10.1 fL Normal 7.1-10.5 [facility] Comment on above: Performed By: #### L MCBD #### [facility] [address] [place], [place] [address] Platelets (Bld) [#/Vol] 257 thou/cmm Normal 150-400 [facility] Comment on above: Performed By: #### L MCBD #### [facility] [address] [place], [place] [address] RBC (Bld) [#/Vol] 5.83 mil/cmm High 4.20-5.40 [facility] Comment on above: Performed By: #### L MCBD #### [facility] [address] [place] [address] Seg Neutrophil 70.5 % Normal [facility] Comment on above: Performed By: #### L MCBD #### [facility] [address] [place] [address] WBC (Bld) [#/Vol] 11.5 thou/cmm High 4.8-10.8 [facility] Comment on above: Performed By: #### L MCBD #### [facility] [address] [place] [address] MDRD eGFRon 08-16-2018 GFR/1.73 sq M predicted among non-blacks MDRD (S/P/Bld) [Vol rate/Area] mL/min/{1.73_m2} Normal >60mL/min/ 1.73m2 [facility] Comment on above: Result Comment: If t he patient is , multiply the result by 1.210. Performed By: #### L MCBD #### [facility] [address] [place] [address] Basic Panelon 07-31-2018 Anion gap [Moles/Vol] 17 mmol/L Normal 8-20 [facility] Comment on above: Performed By: #### L MCBD #### [facility] [address] [place] [address] Chloride [Moles/Vol] 97 mmol/L Low 98-109 [facility] Comment on above: Result Comment: Test ing performed on an [employer] i-STAT. Performed By: #### L MCBD #### [facility] [address] [place] [address] Potassium [Moles/Vol] 4.4 mmol/L Normal 3.5-4.9 [facility] Comment on above: Result Comment: Test ing performed on an [employer] i-STAT. Performed By: #### L MCBD #### [facility] [address] [place] [address] Sodium [Moles/Vol] 134 mmol/L Low 138-146 [facility] Comment on above: Result Comment: Test ing performed on an BMP [employer] i-STAT. Performed By: #### L MCBD #### [facility] [address] [place], [place] [address] Calcium [Mass/Vol] 9.2 mg/dL Normal 8.5-10.1 [facility] Comment on above: Performed By: #### L MCBD #### [facility] [address] [place], [place] [address] CO2 Blood 24 mEq/L Normal 21-32 [facility] Comment on above: Performed By: #### L MCBD #### [address] [address] Creatinine [Mass/Vol] 0.52 mg/dL Normal 0.51-0.95 [facility] Comment on above: Performed By: #### L MCBD #### [address] [address] Glucose [Mass/Vol] 444 mg/dL Critically high 70-99 [facility] Comment on above: Performed By: #### L MCBD #### [address] [address] Urea nitrogen [Mass/Vol] 7 mg/dL Normal 7-25 [facility] Comment on above: Performed By: #### L MCBD #### [address] [address] Urea nitrogen/Creatinine [Mass ratio] 14 mg/mg Normal 10-20 [facility] Comment on above: Performed By: #### L MCBD #### [facility] [address] [place], [place] [address] Hemogram/Diffon 07-31-2018 Abs. Baso 0.05 thou/cmm Normal 0.00-0.08 [facility] Comment on above: Performed By: #### L SHCG #### [address] [address] Abs. Wilkinson 0.63 thou/cmm Normal 0.20-1.00 [facility] Comment on above: Performed By: #### L SHCG #### [facility] [address] [place], [place] [address] Abs. Neut (ANC) 8.64 thou/cmm High 3.00-5.67 [facility] Comment on above: Performed By: #### L SHCG #### [facility] [address] [place], [place] [address] Basophils/100 WBC (Bld) 0.4 % Normal A [facility] Comment on above: Performed By: #### L SHCG #### [facility] [address] [place], [place] [address] Eosinophils (Bld) [#/Vol] 0.16 thou/cmm Normal 0.00-0.41 [facility] Comment on above: Performed By: #### L SHCG #### [facility] [address] [place], [place] [address] Eosinophils/100 WBC (Bld) 1.4 % Normal [facility] Comment on above: Performed By: #### L SHCG #### [place] [address] Erythrocyte distribution width (RBC) [Ratio] 13.4 % Normal 11.5-15.9 [facility] Comment on above: Performed By: #### L SHCG #### [address] [address] Hematocrit (Bld) [Volume fraction] 49.1 % High 37.0-47.0 [facility] Comment on above: Performed By: #### L SHCG #### [facility] [address] [place], [place] [address] Hemoglobin (Bld) [Mass/Vol] 17.0 g/dL High 12.0-16.0 [facility] Comment on above: Performed By: #### L SHCG #### [facility] [address] [place], [place] [address] Lymphocytes (Bld) [#/Vol] 2.12 thou/cmm Normal 1.50-3.65 [facility] Comment on above: Performed By: #### L SHCG #### [facility] [address] [place], [place] [address] Lymphocytes/100 WBC (Bld) 18.3 % Normal [facility] Comment on above: Performed By: #### L SHCG #### [facility] [address] [place], [place] [address] MCH (RBC) [Entitic mass] 27.8 pg Normal 27.0-31.0 [facility] Comment on above: Performed By: #### L SHCG #### [facility] [address] [place], [place] [address] MCHC (RBC) [Mass/Vol] 34.6 % Normal 32.0-36.0 [facility] Comment on above: Performed By: #### L SHCG #### [address] [address] MCV (RBC) [Entitic vol] 80.4 fL Low 81.0-99.0 [facility] Comment on above: Performed By: #### L SHCG #### [address] [address] Monocytes/100 WBC (Bld) 5.4 % Normal [facility] Comment on above: Performed By: #### L SHCG #### [address] [address] Platelet mean volume (Bld) [Entitic vol] 10.2 fL Normal 7.1-10.5 [facility] Comment on above: Performed By: #### L SHCG #### [address] [address] Platelets (Bld) [#/Vol] 209 thou/cmm Normal 150-400 [facility] Comment on above: Performed By: #### L SHCG #### [facility] [address] [place], [place] [address] RBC (Bld) [#/Vol] 6.11 mil/cmm High 4.20-5.40 [facility] Comment on above: Performed By: #### L SHCG #### [address] [address] Seg Neutrophil 74.5 % Normal [facility] Comment on above: Performed By: #### L SHCG #### [facility] [address] [place] [address] WBC (Bld) [#/Vol] 11.6 thou/cmm High 4.8-10.8 [facility] Comment on above: Performed By: #### L SHCG #### [facility] [address] [place] [address] MDRD eGFRon 07-31-2018 GFR/1.73 sq M predicted among non-blacks MDRD (S/P/Bld) [Vol rate/Area] mL/min/{1.73_m2} Normal >60mL/min/ 1.73m2 [facility] Comment on above: Result Comment: If t he patient is , multiply the result by 1.210. Performed By: #### L MCBD #### [place] [address] Rapid Influenza A/Bon 2018 Rapid Influenza A/B See below Normal Negative [facility] Comment on above: Result Comment: Nega tive for influenza A and B. Performed By: #### L MCBD #### [facility] [address] [place] [address] Urinalysis Routineon 019 Appearance (U) CLEAR Normal [facility] Comment on above: Performed By: #### L MCBD #### [place] [address] Bilirubin Urine Negative Normal Negative [facility] Comment on above: Performed By: #### L MCBD #### [facility] [address] [place] [address] Color (U) YELLOW Normal [facility] Comment on above: Performed By: #### L MCBD #### [facility] [address] [place] [address] Ep Cells Urine 2-5 Normal 0-5 [facility] Comment on above: Performed By: #### L MCBD #### [facility] [address] [place] [address] Glucose Ql (U) 2+ Abnormal Negative [facility] Comment on above: Performed By: #### L MCBD #### [facility] [address] [place] [address] Hemoglobin,Urine Negative Normal Negative [facility] Comment on above: Performed By: #### L MCBD #### [facility] [address] [place] [address] Ketone Urine Negative Normal Negative [facility] Comment on above: Performed By: #### L MCBD #### [facility] [address] [place] [address] Leukocytes Esterase Negative Normal Negative [facility] Comment on above: Performed By: #### L MCBD #### [facility] [address] [place] [address] Nitrites Urine Negative Normal Negative [facility] Comment on above: Performed By: #### L MCBD #### [facility] [address] [place] [address] pH (U) 6.0 [pH] Normal 5.0-8.0 [facility] Comment on above: Performed By: #### L MCBD #### [place] [address] Protein (U) [Mass/Vol] TRACE Abnormal Negative [facility] Comment on above: Performed By: #### L MCBD #### [place] [address] RBC LM.HPF (Urine sed) [#/Area] 0-3 Normal 0-3 [facility] Comment on above: Performed By: #### L MCBD #### [place] [address] Specific [place], Ur 1.015 Normal 1.005-1 .03 0 [facility] Comment on above: Performed By: #### L MCBD #### [place] [address] Urobilinogen,Ur 0.2 EU/dL Normal 0.0-1.0 [facility] Comment on above: Performed By: #### L MCBD #### [place] [address] WBC LM.HPF (Urine sed) [#/Area] 0-2 Normal 0-5 [facility] Comment on above: Performed By: #### L MCBD #### [place] [address] CASE MANAGEMon 07-21-2018 CASE MANAGEM HNO ID: [id number] Author: Jameson Sanders (Lisw) Service: (none) Author Type: Cv Rn Type: Care Mgt Progress Note Filed: 07/21/2018 [...] CONTACT RESOURCES: NARCISA provided financial resources for [facility]. The pt plans to follow up with [facility] for anxiety and depression. NARCISA tasked the [facility] for a f/u apt and they will contact the pt tomorrow. SIGNATURE: NARCISA [facility] PATIENT NAME: Trenton Jackson DATE: July 21, 2018 TIME: 1:10 PM PAGER/CONTACT #: [phone] [facility] CASE MGT INIT [facility] 2018 CASE MGT INIT [facility] HNO ID: [id number] Author: Jameson Sanders (Lisw) Service: (none) Author Type: Cv Rn Type: Care Mgt Initial Assessment Filed: 07/21/2018 1:09 PM Note Text: CARE MANAGEMENT: ASSESSMENT AND DISCHARGE PLAN SERVICE DATE: 07/21/2018 SERVICE TIME: 12:00 PM PRIMARY CARE PHYSICIAN: Uziel Conteh MD - Pt confirmed and is agreeable to [facility] scheduling a f/u apt. NARCISA sent a task. 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 No SOCIAL: Living Arrangement: Home Lives With: Spouse and children Financial Resources: Unemployed Primary Contact: Extended Emergency Contact Information Primary Emergency Contact: Curry Jackson Jr Address: [address] [place] [address] [facility] Mobile Relation: Spouse Secondary Emergency Contact: Rebecca Dueñas Address: [place], [place] [address] [place] [address] Relation: Mother Supportive: Yes Other Important Patient [...] 0 I feel financially burdened by my tkw-yi-yhaxbn expenses for my prescription medication: Disagree completely [...] Home Psych Facility/Counseling [facility] NARCISA met with the pt at bedside [...] did provide a list of resources for [employer]. The pt has been active with [facility] in the past for anxiety and depression and plans to make another appointment as she has been struggling again. SIGNATURE: NARCISA [facility] PATIENT NAME: Trenton Jackson DATE: July 21, 2018 TIME: 1:00 PM PAGER/CONTACT #: [phone] [facility] 07-21-2018 [facility]CO Letter Text July 21, 2018 Trenton Jackson [address] [facility] [address] Dear Ms. Jackson, The nurses and staff of [facility] hope this letter finds you feeling [...] free to contact me, Bety Alcaraz RN ([phone]) or email me at, [email or web address] Additionally, you will receive a survey in [...] participation and thank you for choosing the [facility] for your health needs. Sincerely, Nurse [employer]: Bety Alcaraz RN ([phone]) [facility] Unit: 3 Observation Letter Text July 22, 2018 Department of Hospital Medicine [address] [place] [address] Re: Trenton Jackson Dear Dr. Conteh: A patient of your practice, Trenton Jackson (: 1970) was treated at [facility] under the care of the [facility] Department of Hospital Medicine, and discharged on 07/21/2018. A transcribed discharge summary should be forthcoming promptly. If you need additional information or assistance, you may contact the Department of Hospital Medicine at [phone] during regular business hours, and we?ll be happy to assist you. Best Regards, Juancarlos Ann Normal [facility] HNO ID: [id number] Author: Magda Miller Documentum Consultant Service: Hospital Medicine Author Type: Nurse Practitioner Type: Discharge Summaries Filed: 07/21/2018 11:41 AM Note Text: ----- Attestation signed by Lei Roman at 07/21/2018 12:09 PM [facility] STAFF PHYSICIAN NOTE OF PERSONAL INVOLVEMENT IN CARE I have reviewed the documentation obtained and documented by the team healthcare provider (medical student, fellow, resident, nurse practitioner or physician claims assistant) and I personally participated in the jones components. I have discussed the case and management of the patient's care. 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 We discussed increasing dose of [...] mild, abuse Frailty Coronary artery disease involving unga coronary artery of unga heart without angina pectoris Resolved Problems: * [...] to call for appointment?: Yes Uziel Conteh [phone] [address] [facility] [address] PCP Requested Referral Additional Provider to Provider [...] called for EMS to take her to [facility] ED around 7 am. Patient was recommended to go to a hospital with PCI capacity but the patient declined and said [facility]. Initial work up in the ED [...] disorder, with long-term current use of insulin ([facility]) 12/06/2017 - Present Primary hypertension 12/06/2017 - Present Dyslipidemia 11/30/2017 - Present Smoker 12/02/2017 - Present Frailty 07/20/2018 - Present Coronary artery disease involving unga coronary artery of unga heart without angina pectoris 07/21/2018 - Present Chronic systolic heart failure ([facility]) 06/08/2018 - Present Chest pain at rest 11/30/2017 - Present Cardiomyopathy ([facility]) 12/02/2017 - Present Cannabis use disorder, mild, abuse 07/20/2018 - Present Anxiety 02/20/2017 - Present Resolved Hospital Problems as of 07/21/2018 None Transitions of Care Critical Issues: SPECIALIST FOLLOW-UP: PCP in 1 week, Cardiology as scheduled LABS AND PROCEDURES PENDING AT DISCHARGE: No pending results. FOLLOW-UP APPOINTMENTS ALREADY SCHEDULED WITH A [facility] PROVIDER: No future appointments. ALLERGIES Allergen [...] minutes SIGNATURE: Magda Truong APRN.CNP PAGER/CONTACT #: [phone] DATE: July 21, 2018 TIME: 11:38 AM [facility] CONSULTon 07-21-2018 CONSULT HNO ID: [id number] Author: Torito Foley Service: Cardiovascular Disease Author Type: Physician Type: Consults Filed: 07/21/2018 10:30 AM Note Text: CONSULT: CARDIOLOGY SERVICE SERVICE DATE: 07/21/2018 SERVICE TIME: 8:51 AM CONSULTING PHYSICIAN: Torito Foley MD PCP: Uziel Conteh MD ATTENDING: Lei Roman REASON FOR CONSULT: Chest pain Subjective CHIEF COMPLAINT: CHEST PAIN HISTORY OF PRESENT ILLNESS: Ms. Jakcson is a 47 year old female with [...] including tobacco use. The patient presented to [facility] emergency room with a complaint of a [...] appointments with prior cardiologists. Torito Foley MD, [facility] Obie Richards Department of Cardiovascular Medicine Heart and Vascular [facility]/ [address], [address] [place] [address] Tel. [phone] SIGNATURE: Torito Foley MD PATIENT NAME: Trenton Jackson DATE: July 21, 2018 TIME: 8:51 AM PAGER/CONTACT #: [phone] [facility] Lipaseon 07-21-2018 Lipase enzyme act/vol 21 U/L Normal 16-61 [facility] Comment on above: Performed By: #### L IPA ####[facility] [address] [place] [id number] NURSING PROGon 07-21-2018 Protein mass conc HNO ID: [id number] Author: Dayanara AgudeloRn) CHAYITO Alexander Service: (none) Author Type: Registered Nurse Type: Nursing Progress Note Filed: 07/21/2018 1:30 PM Note Text: Nursing Progress Note Patient Name: Trenton Jackson Patient Location: [place] [address] [address] Daily Note: 0745 RN assumed care of [...] note was completed by: Dayanara Alexander RN [facility] Protein mass conc HNO ID: [id number] Author: Katrina AgudeloRn) CHAYITO Patrick Service: (none) Author Type: Registered Nurse Type: Nursing Progress Note Filed: 07/21/2018 6:50 AM Note Text: Nursing Progress Note Patient Name: Trenton Jackson Patient Location: [id number] Daily Note: 1940: patient observed in bed [...] note was completed by: Katrina Patrick RN [facility] PROGRESSon 07-21-2018 Protein mass conc HNO ID: [id number] Author: Ghassan Logan Service: General Internal Medicine [...] Logan MD July 21, 2018 6:51 AM [facility] Troponin Ton 07-21-2018 Troponin T.cardiac mass conc ug/L Normal 0.000-0.[address] [place] [address] Comment on above: Performed By: #### T NT ####[facility] [address] [place] [phone] Basic Panelon 07-20-2018 Anion gap [Moles/Vol] 17 mmol/L Normal 8-20 [facility] Comment on above: Performed By: #### L SHCG #### [place] [address] Chloride [Moles/Vol] 95 mmol/L Low 98-109 [facility] Comment on above: Result Comment: Test ing performed on an [employer] i[employer]STAT. Performed By: #### L SHCG #### [address] [address] Sodium [Moles/Vol] 135 mmol/L Low 138-146 [facility] Comment on above: Result Comment: Test ing performed on an [employer] i[employer]STAT. Performed By: #### L SHCG #### [address] [address] Calcium [Mass/Vol] 9.4 mg/dL Normal 8.5-10.1 [facility] Comment on above: Performed By: #### L SHCG #### [facility] [address] [place], [place] [address] CO2 Blood 27 mEq/L Normal 21-32 [facility] Comment on above: Performed By: #### L SHCG #### [facility] [address] [place], [place] [address] Creatinine [Mass/Vol] 0.54 mg/dL Normal 0.51-0.95 [facility] Comment on above: Performed By: #### L SHCG #### [facility] 1 [place], [place] [address] Glucose [Mass/Vol] 400 mg/dL High 70-99 [facility] Comment on above: Performed By: #### L SHCG #### [facility] [address] [place] [address] Urea nitrogen [Mass/Vol] 5 mg/dL Low 7-25 [facility] Comment on above: Performed By: #### L SHCG #### [facility] [address] [place] [address] Urea nitrogen/Creatinine [Mass ratio] 9 mg/mg Low 10-20 [facility] Comment on above: Performed By: #### L SHCG #### [facility] [address] [place] [address] CBCon 07-20-2018 Erythrocyte distribution width Ratio (RBC) 13.3 % Normal 11.5-15.0 [facility] Comment on above: Performed By: #### C BC ####[facility] [address] [place] [address] Hematocrit Volume Fraction (Bld) 48.4 % High 36.0-46.0 [facility] Comment on above: Performed By: #### C BC ####[facility] [address] [place] [address] Hemoglobin mass conc (Bld) 16.7 g/dL High 11.5-15.5 [facility] Comment on above: Performed By: #### C BC ####[facility] [address] [place] [address] MCH Entitic mass (RBC) 27.4 pG Normal 26.0-34.0 [facility] Comment on above: Performed By: #### C BC ####[facility] [address] [place] [address] MCHC mass conc (RBC) 34.5 g/dL Normal 30.5-36.0 [facility] Comment on above: Performed By: #### C BC ####[place] [address] MCV Entitic volume (RBC) 79.3 fL Low 80.0-100.0 [facility] Comment on above: Performed By: #### C BC ####[place] [address] Platelet mean volume Entitic volume (Bld) 10.1 fL Normal 9.0-12.7 [facility] Comment on above: Performed By: #### C BC ####[place] [address] Platelets #/vol (Bld) 242 10*3/uL Normal 150-400 [facility] Comment on above: Performed By: #### C BC ####[facility] [address] [place] [address] RBC #/vol (Bld) 6.10 10*6/uL High 3.90-5.20 [facility] Comment on above: Performed By: #### C BC ####[place] [address] WBC #/vol (Bld) 11.50 10*3/uL High 3.70-11.00 [facility] Comment on above: Performed By: #### C BC ####[place] [address] D-Dimer Quantitativeon 07-20 D-Dimer Quantitative 224 ng/mL(FEU) Normal <450 [facility] Comment on above: Result Comment: The D-Dimer [...] By: #### L SHC #### [facility] [address] [place] [address] ECG COMPLETEon 07-20-2018 ECG COMPLETE NAME : SUSI JACKSON PID : [id number] : 1970 Gender : Female Race : ORD : [id number] Procedure Date : Jul 20 2018 17:43:40 Edit Date : Jul 22 2018 11:17:53 Diagnosis:SINUS TACHYCARDIA LEFT AXIS DEVIATION SEPTAL INFARCT (CITED ON OR BEFORE 30-NOV-2017) ABNORMAL ECG WHEN COMPARED WITH ECG OF 14-DEC-2017 14:52, QUESTIONABLE CHANGE IN INITIAL FORCES OF ANTERIOR LEADS Confirmed by MD FAIRCHILD QARAB ([id number]) on 07/22/2018 11:17:50 AM Ventricular Rate : 122 BPM Atrial Rate : 122 BPM P-R Interval : 144 ms QRS Duration : 96 ms Q-T Interval : 336 ms QTC Calculation(Bezet) : 478 ms P [place] : 48 degrees R [place] : -61 degrees T [place] : 65 degrees Test Reason : Chest Pain Location : 15 : 3V 323.1 Overread By : MD FAIRCHILD QARAB Edited By : MD FAIRCHILD QARAB Referred By : ZOHREH HARRINGTON Acquired by : [id number], Normal [facility] Glucose Meteron 07-20-2018 Glucose [Mass/Vol] 330 mg/dL High 70-99 [facility] Comment on above: Result Comment: MD Mccracken OTIFIED [place] [address] Performed By: #### L SHCG #### [place] [address] HISTORY PHYSICALon 9 HISTORY PHYSICAL HNO ID: [id number] Author: Ghassan Logan Service: General Internal Medicine [...] patient directed ED to only come to [facility] despite counseling by day physicians that we [...] h/o ischemic cardiomyopathy, LAD 80% stenosis on [facility] in December 2017, [facility] not intervene - cardiology did not [...] called for EMS to take her to [place] ED around 7 am. Patient htne was recommended to go to a hospital with PCI capacity but the patient declined and said [facility] only. Of note the patient has had [...] 2017. PCP is Uziel Conteh MD in [place]. Patient lives in [place]. Review of the Systems: (positives in bold) [...] 5. The patient will be transferred to [facility] for assessment of myocardial viability and [...] July 20, 2018 Time: 4:18 PM [facility] Normal [facility] Hemoglobin A1con 07-20-2018 Hemoglobin A1c/Hemoglobin.total mass fraction (Bld) 275 mg/dL Normal [facility] Comment on above: Result Comment: eAG: (Estimated average glucose) is a calculated value from HgbA1c and is sales representative girls[employer] of the average blood glucose level in the last 2-3 month period. Performed By: #### H BA1C ####[facility] [place], [place] [phone] Hemoglobin A1c/Hemoglobin.total mass fraction (Bld) 11.2 % High 4.3-5.6 [facility] Comment on above: Result Comment: Amer ican Diabetes Association guidelines indicate that patients with HgbA1c in the range 5.7-6.4% are at increased risk for development of diabetes, and intervention by lifestyle modification may be beneficial. HgbA1c greater or equal to 6.5% is considered diagnostic of diabetes. Performed By: #### H BA1C ####[facility] [place], [place] [phone] Hemogram/Diffon 07-20-2018 Abs. Baso 0.06 thou/cmm Normal 0.00-0.08 [facility] Comment on above: Performed By: #### L SHCG #### [place] [address] Abs. Wilkinson 0.45 thou/cmm Normal 0.20-1.00 [facility] Comment on above: Performed By: #### L SHCG #### [place] [address] Abs. Neut (ANC) 7.40 thou/cmm High 3.00-5.67 [facility] Comment on above: Performed By: #### L SHCG #### [facility] [address] [place], [place] [address] Basophils/100 WBC (Bld) 0.6 % Normal [facility] Comment on above: Performed By: #### L SHCG #### [facility] [address] [place], [place] [address] Eosinophils (Bld) [#/Vol] 0.06 thou/cmm Normal 0.00-0.41 [facility] Comment on above: Performed By: #### L SHCG #### [facility] 1 [place], [place] [address] Eosinophils/100 WBC (Bld) 0.6 % Normal [facility] Comment on above: Performed By: #### L SHCG #### [address] [address] Erythrocyte distribution width (RBC) [Ratio] 13.3 % Normal 11.5-15.9 [facility] Comment on above: Performed By: #### L SHCG #### [facility] [address] [place], [place] [address] Hematocrit (Bld) [Volume fraction] 49.9 % High 37.0-47.0 [facility] Comment on above: Performed By: #### L SHCG #### [facility] [address] [place], [place] [address] Hemoglobin (Bld) [Mass/Vol] 17.3 g/dL High 12.0-16.0 [facility] Comment on above: Performed By: #### L SHCG #### [facility] [address] [place], [place] [address] Lymphocytes (Bld) [#/Vol] 1.53 thou/cmm Normal 1.50-3.65 [facility] Comment on above: Performed By: #### L SHCG #### [facility] [address] [place], [place] [address] Lymphocytes/100 WBC (Bld) 16.1 % Normal [facility] Comment on above: Performed By: #### L SHCG #### [facility] [address] [place], [place] [address] MCH (RBC) [Entitic mass] 27.7 pg Normal 27.0-31.0 [facility] Comment on above: Performed By: #### L SHCG #### [facility] 1 [place], [place] [address] MCHC (RBC) [Mass/Vol] 34.7 % Normal 32.0-36.0 [facility] Comment on above: Performed By: #### L SHCG #### [facility] [address] [place] [address] MCV (RBC) [Entitic vol] 80.0 fL Low 81.0-99.0 [facility] Comment on above: Performed By: #### L SHCG #### [place] [address] Monocytes/100 WBC (Bld) 4.7 % Normal [facility] Comment on above: Performed By: #### L SHCG #### [facility] [address] [place] [address] Platelet mean volume (Bld) [Entitic vol] 9.9 fL Normal 7.1-10.5 [facility] Comment on above: Performed By: #### L SHCG #### [facility] [address] [place] [address] Platelets (Bld) [#/Vol] 209 thou/cmm Normal 150-400 [facility] Comment on above: Performed By: #### L SHCG #### [facility] [address] [place], [place] [address] RBC (Bld) [#/Vol] 6.24 mil/cmm High 4.20-5.40 [facility] Comment on above: Performed By: #### L SHCG #### [facility] [address] [place], [place] [address] Seg Neutrophil 78.0 % Normal [facility] Comment on above: Performed By: #### L SHCG #### [place] [phone] WBC (Bld) [#/Vol] 9.5 thou/cmm Normal 4.8-10.8 [facility] Comment on above: Performed By: #### L SHCG #### [facility] [address] [place] [id number] Ketoneson 07-20-2018 Ketones Ql (U) Negative Normal Negative [facility] Comment on above: Performed By: #### L SHCG #### [place] [address] MDRD eGFRon 07-20-2018 GFR/1.73 sq M predicted among non-blacks MDRD (S/P/Bld) [Vol rate/Area] mL/min/{1.73_m2} Normal >60mL/min/ 1.73m2 [facility] Comment on above: Result Comment: If t he patient is , multiply the result by 1.210. Performed By: #### L SHCG #### [place] [address] NURSING PROGon 07-20-2018 Protein mass conc HNO ID: [id number] Author: Dayanara (Rn) CHAYITO Alexander Service: (none) Author Type: Registered Nurse Type: Nursing Progress Note Filed: 07/20/2018 5:58 PM Note Text: Nursing Progress Note Patient Name: Trenton Jackson Patient Location: [place] [id number] Daily Note: 1550 Patient arrived to unit [...] was completed by: Dayanara Alexander RN Normal [facility] Renal Function Panelon 07-20 Albumin mass conc 3.7 g/dL Low 3.9-4.9 [facility] Comment on above: Performed By: #### R FP ####[facility] [address] [place] [address] Anion gap molar conc 8 mmol/L Low 9-18 [facility] Comment on above: Performed By: #### R FP ####[facility] [address] [place] [address] Calcium mass conc 8.7 mg/dL Normal 8.5-10.2 [facility] Comment on above: Performed By: #### R FP ####[facility] [address] [place] [address] Chloride molar conc 100 mmol/L Normal 97-105 [facility] Comment on above: Performed By: #### R FP ####[facility] [address] [place] [address] CO2 molar conc 25 mmol/L Normal 22-30 [facility] Comment on above: Performed By: #### R FP ####[facility] [address] [place] [address] Creatinine mass conc 0.50 mg/dL Low 0.58-0.96 [facility] Comment on above: Performed By: #### R FP ####[facility] [address] [place] [address] eGFR- Amer. >60 Normal [facility] Comment on above: Performed By: #### R FP ####[facility] [address] [place] [address] GFR/1.73 sq M predicted among non-blacks MDRD vol rate/area (S/P/Bld) mL/min/{1.73_m2} Normal [facility] Comment on above: Result Comment: eGFR [...] actual GFR. Performed By: #### R FP ####[facility] [address] [place] [address] Glucose mass conc 247 mg/dL High 74-99 [facility] Comment on above: Result Comment: The [place] Diabetes Association (ADA) provides guidance for cutoff [...] Standards of Medical Care in Diabetes 2016, Swiss Diabetes Association. Diabetes Care. 2016.39(Suppl 1). Performed By: #### R FP ####[facility] [address] [place] [address] Phosphate mass conc 2.9 mg/dL Normal 2.7-4.8 [facility] Comment on above: Performed By: #### R FP ####[facility] [address] [place] [address] Potassium molar conc 4.2 mmol/L Normal 3.5-4.9 [facility] Comment on above: Performed By: #### R FP ####[facility] [address] [place] [address] Result Comment: Test ing performed on an BMP [employer] i-STAT. Performed By: #### L SHCG #### [place] [address] Sodium molar conc 133 mmol/L Low 136-144 [facility] Comment on above: Performed By: #### R FP ####[facility] [address] [place] [address] Urea nitrogen mass conc 5 mg/dL Low 7-21 [facility] Comment on above: Performed By: #### R FP ####[facility] [address] [place] [address] Troponin Ion 02-16-2019 Troponin I.cardiac [Mass/Vol] ng/mL Normal <=0.07 [facility] Comment on above: Performed By: #### L SHCG #### [facility] [address] [place], [place] [address] Troponin Ton 07-20-2018 Troponin T.cardiac mass conc ug/L Normal 0.000-0.02 9 [facility] Comment on above: Performed By: #### T NT ####[facility] [address] [place] [phone] CT ABDOMEN AND PELVIS WITH C ONTRASTon 06-26-2018 CT ABDOMEN AND PELVIS WITH CONTRAST Performed at [facility] APPROVED BY: Nixon Cortez MD EXAM [...] Multiple chronic findings as detailed above. Normal [facility] Comprehensive Panelon 2018 Albumin [Mass/Vol] 3.9 g/dL Normal 3.4-5.0 [facility] Comment on above: Performed By: #### L ACET #### [place] [address] ALP [Catalytic activity/Vol] 118 U/L High 46-116 [facility] Comment on above: Performed By: #### L ACET #### [place] [address] ALT-SGPT Blood 18 U/L Normal 14-63 [facility] Comment on above: Performed By: #### L ACET #### [place] [address] Anion gap [Moles/Vol] 18 mmol/L Normal 8-20 [facility] Comment on above: Performed By: #### L ACET #### [place] [address] AST-SGOT Blood 19 U/L Normal 15-37 [facility] Comment on above: Performed By: #### L ACET #### [place] [address] Bilirubin Ql (U) 1.5 mg/dL High 0.2-1.0 [facility] Comment on above: Performed By: #### L ACET #### [facility] [address] [place], [place] [address] Calcium [Mass/Vol] 9.4 mg/dL Normal 8.5-10.1 [facility] Comment on above: Performed By: #### L ACET #### [facility] 1 [place], [place] [address] Chloride [Moles/Vol] 93 mmol/L Low 98-107 [facility] Comment on above: Performed By: #### L ACET #### [facility] 1 [place], [place] [address] CO2 Blood 25 mEq/L Normal 21-32 [facility] Comment on above: Performed By: #### L ACET #### [facility] [address] [place], [place] [address] Creatinine [Mass/Vol] 0.64 mg/dL Normal 0.51-0.95 [facility] Comment on above: Performed By: #### L ACET #### [facility] [address] [place], [place] [address] Glucose [Mass/Vol] 443 mg/dL Critically high 70-99 [facility] Comment on above: Performed By: #### L ACET #### [facility] [address] [place], [place] [address] Potassium [Moles/Vol] 4.0 mmol/L Normal 3.5-5.1 [facility] Comment on above: Performed By: #### L ACET #### [address] [address] Protein [Mass/Vol] 8.0 g/dL Normal 6.4-8.2 [facility] Comment on above: Performed By: #### L ACET #### [facility] [address] [place], [place] [address] Sodium [Moles/Vol] 132 mmol/L Low 136-145 [facility] Comment on above: Performed By: #### L ACET #### [address] [address] Urea nitrogen [Mass/Vol] 8 mg/dL Normal 7-25 [facility] Comment on above: Performed By: #### L ACET #### [facility] [address] [place] [address] Urea nitrogen/Creatinine [Mass ratio] 13 mg/mg Normal 10-20 [facility] Comment on above: Performed By: #### L ACET #### [facility] [address] [place] [address] Hemogram/Manual Diffon 06-26 Abs. Baso 0.00 thou/cmm Normal 0.00-0.08 [facility] Comment on above: Performed By: #### L ACET #### [facility] [address] [place] [address] Abs. Eosin 0.00 thou/cmm Normal 0.00-0.41 [facility] Comment on above: Performed By: #### L ACET #### [facility] [address] [place] [address] Abs. Lymph 2.58 thou/cmm Normal 1.50-3.65 [facility] Comment on above: Performed By: #### L ACET #### [facility] [address] [place] [address] Abs. Wilkinson 0.78 thou/cmm Normal 0.20-1.00 [facility] Comment on above: Performed By: #### L ACET #### [facility] [address] [place] [address] Abs. Neut (ANC) 7.84 thou/cmm High 3.00-5.67 [facility] Comment on above: Performed By: #### L ACET #### [facility] [address] [place] [address] Basophil 0.0 % Normal [facility] Comment on above: Performed By: #### L ACET #### [facility] [address] [place] [address] Eosinophil 0.0 % Normal [facility] Comment on above: Performed By: #### L ACET #### [place] [address] Lymphocyte 23.0 % Normal [facility] Comment on above: Performed By: #### L ACET #### [facility] [address] [place] [address] Monocyte 7.0 % Normal [facility] Comment on above: Performed By: #### L ACET #### [facility] [address] [place] [address] Platelets (Bld) [#/Vol] Normal Normal [facility] Comment on above: Performed By: #### L ACET #### [facility] [address] [place] [address] RBC morphology finding Nom (Bld) Normal Normal [facility] Comment on above: Performed By: #### L ACET #### [facility] [address] [place] [address] Seg Neutrophil 70.0 % Normal [facility] Comment on above: Performed By: #### L ACET #### [place] [address] Diff Type Manual Diff Normal [facility] Comment on above: Performed By: #### L ACET #### [place] [address] Erythrocyte distribution width (RBC) [Ratio] 13.1 % Normal 11.5-15.9 [facility] Comment on above: Performed By: #### L ACET #### [place] [address] Hematocrit (Bld) [Volume fraction] 49.0 % High 37.0-47.0 [facility] Comment on above: Performed By: #### L ACET #### [place] [address] Hemoglobin (Bld) [Mass/Vol] 16.9 g/dL High 12.0-16.0 [facility] Comment on above: Performed By: #### L ACET #### [place] [address] MCH (RBC) [Entitic mass] 27.6 pg Normal 27.0-31.0 [facility] Comment on above: Performed By: #### L ACET #### [place] [address] MCHC (RBC) [Mass/Vol] 34.5 % Normal 32.0-36.0 [facility] Comment on above: Performed By: #### L ACET #### [facility] [address] [place] [address] MCV (RBC) [Entitic vol] 79.9 fl Low 81.0-99.0 [facility] Comment on above: Performed By: #### L ACET #### [place] [address] Platelet mean volume (Bld) [Entitic vol] 9.9 fl Normal 7.1-10.5 [facility] Comment on above: Performed By: #### L ACET #### [place] [address] Platelets (Bld) [#/Vol] 276 thou/cmm Normal 150-400 [facility] Comment on above: Performed By: #### L ACET #### [place] [address] RBC (Bld) [#/Vol] 6.13 mil/cmm High 4.20-5.40 [facility] Comment on above: Performed By: #### L ACET #### [place] [address] WBC (Bld) [#/Vol] 11.2 thou/cmm High 4.8-10.8 [facility] Comment on above: Performed By: #### L ACET #### [place] [address] Ketoneson 06-26-2018 Ketones Ql (U) Negative Normal Negative [facility] Comment on above: Performed By: #### L SHCG #### [place] [address] Lipase Bloodon 06-26-2018 Lipase Blood 161 U/L Normal 73-393 [facility] Comment on above: Performed By: #### L ACET #### [place] [address] MDRD eGFRon 06-26-2018 GFR/1.73 sq M predicted among non-blacks MDRD (S/P/Bld) [Vol rate/Area] mL/min/{1.73_m2} Normal >60mL/min/ 1.73m2 [facility] Comment on above: Result Comment: If t he patient is , multiply the result by 1.210. Performed By: #### L ACET #### [place] [address] Macroscopic Urinalysison Appearance (U) CLEAR Normal [facility] Comment on above: Performed By: #### L ACET #### [place] [address] Bilirubin Urine Negative Normal Negative [facility] Comment on above: Performed By: #### L ACET #### [place] [address] Color (U) YELLOW Normal [facility] Comment on above: Performed By: #### L ACET #### [place] [address] Glucose Ql (U) 3+ Abnormal Negative [facility] Comment on above: Performed By: #### L ACET #### [place] [address] Hemoglobin,Urine Negative Normal Negative [facility] Comment on above: Performed By: #### L ACET #### [place] [address] Ketone Urine Negative Normal Negative [facility] Comment on above: Performed By: #### L ACET #### [place] [address] Leukocytes Esterase Negative Normal Negative [facility] Comment on above: Performed By: #### L ACET #### [place] [address] Nitrites Urine Negative Normal Negative [facility] Comment on above: Performed By: #### L ACET #### [place] [address] pH (U) 6.0 [pH] Normal 5.0-8.0 [facility] Comment on above: Performed By: #### L ACET #### [place] [address] Protein (U) [Mass/Vol] Negative Normal Negative [facility] Comment on above: Performed By: #### L ACET #### [facility] [address] [place] [address] Specific [place], Ur 1.015 Normal 1.005-1 .03 0 [facility] Comment on above: Performed By: #### L ACET #### [facility] [address] [place] [address] Urobilinogen,Ur 0.2 EU/dL Normal 0.0-1.0 [facility] Comment on above: Performed By: #### L ACET #### [facility] [address] [place] [address] CASE MANAGEMon 06-12-2018 CASE MANAGEM HNO ID: [id number] Author: Rey Markham (Sw) Service: Care Management Author Type: Cv Rn Type: Care Mgt Progress Note Filed: 06/12/2018 [...] discharge planning needs arise. SIGNATURE: Rey Markham GENERAL FARMWORKER, [employer] EXAMINER, ESTEFANIA-KIKE PATIENT NAME: Trenton Jackson DATE: June 12, 2018 TIME: 3:21 PM PAGER/CONTACT #: Normal [facility] 06-12-2018 Erythrocyte distribution width Ratio (RBC) 13.1 % Normal 11.5-15.0 [facility] Comment on above: Performed By: #### C BC, CMP, MG1 ####[facility] [address] [place] [address] Hematocrit Volume Fraction (Bld) 39.0 % Normal 36.0-46.0 [facility] Comment on above: Performed By: #### C BC, CMP, MG1 ####[facility] [address] [place] [address] Hemoglobin mass conc (Bld) 13.0 g/dL Normal 11.5-15.5 [facility] Comment on above: Performed By: #### C BC, CMP, MG1 ####[facility] [address] [place] [address] MCH Entitic mass (RBC) 27.5 pG Normal 26.0-34.0 [facility] Comment on above: Performed By: #### C BC, CMP, MG1 ####[facility] [address] [place] [address] MCHC mass conc (RBC) 33.3 g/dL Normal 30.5-36.0 [facility] Comment on above: Performed By: #### C BC, CMP, MG1 ####[facility] [address] [place] [address] MCV Entitic volume (RBC) 82.5 fL Normal 80.0-100.0 [facility] Comment on above: Performed By: #### C BC, CMP, MG1 ####[facility] [address] [place] [address] Platelet mean volume Entitic volume (Bld) 9.6 fL Normal 9.0-12.7 [facility] Comment on above: Performed By: #### C BC, CMP, MG1 ####[facility] [address] [place] [address] Platelets #/vol (Bld) 202 10*3/uL Normal 150-400 [facility] Comment on above: Performed By: #### C BC, CMP, MG1 ####[facility] [address] [place] [address] RBC #/vol (Bld) 4.73 10*6/uL Normal 3.90-5.20 [facility] Comment on above: Performed By: #### C BC, CMP, MG1 ####[facility] [phone] WBC #/vol (Bld) 9.75 10*3/uL Normal 3.70-11.00 [facility] Comment on above: Performed By: #### C BC, CMP, MG1 ####[facility] [phone] CONSULT PROGon 06-12-2018 Protein mass conc HNO ID: [id number] Author: Jasvir Kumar Service: Gastroenterology Author Type: Physician Type: Consult Progress Note Filed: 06/12/2018 12:18 PM Note Text: GASTROENTEROLOGY CONSULT PROGRESS NOTE Patient Name: Trenton aJckson SERVICE DATE: June 12, 2018 SERVICE TIME: [...] ~6 weeks. 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 Patient seen [...] 80 93 76 TBILI 0.5 0.8 0.6 [facility] LABS: Component Latest Ref Rng AND Units [...] colon Bx: unavailable ? SIGNATURE: Prudence Edwards, DISH NETWORK INSTALLER DATE: June 12, 2018 TIME: 10:40 AM Normal [facility] Comp Metabolic Panelon 06-12 Albumin mass conc 3.0 g/dL Low 3.9-4.9 [facility] Comment on above: Performed By: #### C BC, CMP, MG1 ####[facility] [address] [place] [phone] ALP enzyme act/vol 80 U/L Normal 34-123 [facility] Comment on above: Performed By: #### C BC, CMP, MG1 ####[facility] [address] [place] [address] ALT enzyme act/vol 17 U/L Normal 7-38 [facility] Comment on above: Performed By: #### C BC, CMP, MG1 ####[facility] [address] [place] [address] Anion gap molar conc 8 mmol/L Low 9-18 [facility] Comment on above: Performed By: #### C BC, CMP, MG1 ####[facility] [address] [place] [address] AST enzyme act/vol 25 U/L Normal 13-35 [facility] Comment on above: Performed By: #### C BC, CMP, MG1 ####[facility] [address] [place] [address] Bilirubin mass conc 0.5 mg/dL Normal 0.2-1.3 [facility] Comment on above: Performed By: #### C BC, CMP, MG1 ####[facility] [address] [place] [address] Calcium mass conc 9.0 mg/dL Normal 8.5-10.2 [facility] Comment on above: Performed By: #### C BC, CMP, MG1 ####[facility] [address] [place] [address] Chloride molar conc 101 mmol/L Normal 97-105 [facility] Comment on above: Performed By: #### C BC, CMP, MG1 ####[facility] [address] [place] [address] CO2 molar conc 28 mmol/L Normal 22-30 [facility] Comment on above: Performed By: #### C BC, CMP, MG1 ####[facility] [address] [place] [address] Creatinine mass conc 0.64 mg/dL Normal 0.58-0.96 [facility] Comment on above: Performed By: #### C BC, CMP, MG1 ####[facility] [address] [place] [address] eGFR- Amer. >60 Normal [facility] Comment on above: Performed By: #### C DELIA WILSON MG1 ####[facility] Sccrqxqhge9741 [address] GFR/1.73 sq M predicted among non-blacks MDRD vol rate/area (S/P/Bld) mL/min/{1.73_m2} Normal [facility] Comment on above: Result Comment: eGFR [...] Performed By: #### C DELIA WILSON, MG1 ####[facility] [address]ib[address]ego[address] [place] [phone] Glucose mass conc 162 mg/dL High 74-99 [facility] Comment on above: Result Comment: The [place] Diabetes Association (ADA) provides guidance for cutoff [...] Standards of Medical Care in Diabetes 2016, [place] Diabetes Association. Diabetes Care. 2016.39(Suppl 1). Performed By: #### C DELIA WILSON, MG1 ####[facility] [address] [place] [phone] Potassium molar conc 4.2 mmol/L Normal 3.7-5.1 [facility] Comment on above: Performed By: #### C DELIA WILSON, MG1 ####[facility] [address] [place] [phone] Protein mass conc 5.6 g/dL Low 6.3-8.0 [facility] Comment on above: Performed By: #### C BC, CMP, MG1 ####[facility] [address]br[address] [place] [address] Sodium molar conc 137 mmol/L Normal 136-144 [facility] Comment on above: Performed By: #### C BC, CMP, MG1 ####[facility] [address]om[address] [place] [address] Urea nitrogen mass conc 5 mg/dL Low 7-21 [facility] Comment on above: Performed By: #### C BC, CMP, MG1 ####[facility] [address] [place] [address] Magnesiumon 06-12-2018 Magnesium mass conc 1.6 mg/dL Low 1.7-2.3 [facility] Comment on above: Performed By: #### C BC, CMP, MG1 ####[facility] [address] [place] [address] NURSING PROGon 06-12-2018 Protein mass conc HNO ID: [id number] Author: Bina (Rn) CHAYITO Montiel Service: (none) Author Type: Registered Nurse Type: Nursing Progress Note Filed: 06/12/2018 6:50 AM Note Text: Nursing Progress Note Patient Name: Trenton Jackson Patient Location: [address] Daily Note: Paged the hospital list regarding patient's magnesium level this AM. This note was completed by: Bina Montiel RN [facility] CBCon 06-11-2018 Erythrocyte distribution width Ratio (RBC) 13.4 % Normal 11.5-15.0 [facility] Comment on above: Performed By: #### C BC, CMP, MG1 ####[facility] [address] [place] [address] Hematocrit Volume Fraction (Bld) 45.8 % Normal 36.0-46.0 [facility] Comment on above: Performed By: #### C BC, CMP, MG1 ####[facility] [address] [place] [address] Hemoglobin mass conc (Bld) 15.4 g/dL Normal 11.5-15.5 [facility] Comment on above: Performed By: #### C BC, CMP, MG1 ####[facility] [address] [place] [address] MCH Entitic mass (RBC) 27.5 pG Normal 26.0-34.0 [facility] Comment on above: Performed By: #### C BC, CMP, MG1 ####[facility] [address] [place] [address] MCHC mass conc (RBC) 33.6 g/dL Normal 30.5-36.0 [facility] Comment on above: Performed By: #### C BC, CMP, MG1 ####[facility] [address] [place] [address] MCV Entitic volume (RBC) 81.8 fL Normal 80.0-100.0 [facility] Comment on above: Performed By: #### C BC, CMP, MG1 ####[facility] [address] [place] [address] Platelet mean volume Entitic volume (Bld) 10.0 fL Normal 9.0-12.7 [facility] Comment on above: Performed By: #### C BC, CMP, MG1 ####[facility] [address]ys[address] [place] [address] Platelets #/vol (Bld) 260 10*3/uL Normal 150-400 [facility] Comment on above: Performed By: #### C BC, CMP, MG1 ####[facility] Qsicgcznrv2723 [place] [address] RBC #/vol (Bld) 5.60 10*6/uL High 3.90-5.20 [facility] Comment on above: Performed By: #### C BC, CMP, MG1 ####[facility] [address]ylct[address] [place] [address] WBC #/vol (Bld) 13.52 10*3/uL High 3.70-11.00 [facility] Comment on above: Performed By: #### C BC, CMP, MG1 ####[facility] [address] [place] [phone] CONSULT Josephn 06-11-2018 Protein mass conc HNO ID: [id number] Author: Jasvir Kumar Service: Gastroenterology Author Type: [...] descending colon Bx: unavailable SIGNATURE: Prudence Edwards, D[employer] NETWORK INSTALLER DATE: June 11, 2018 TIME: 10:11 AM Normal [facility] Comp Metabolic Panelon 06-11 Albumin mass conc 3.4 g/dL Low 3.9-4.9 [facility] Comment on above: Performed By: #### C BC, CMP, MG1 ####[facility] [address] [place] [address] ALP enzyme act/vol 93 U/L Normal 34-123 [facility] Comment on above: Performed By: #### C BC, CMP, MG1 ####[facility] [address] [place] [address] ALT enzyme act/vol 18 U/L Normal 7-38 [facility] Comment on above: Performed By: #### C BC, CMP, MG1 ####[facility] [address] [place] [address] Anion gap molar conc 11 mmol/L Normal 9-18 [facility] Comment on above: Performed By: #### C BC, CMP, MG1 ####[facility] [address] [place] [address] AST enzyme act/vol 31 U/L Normal 13-35 [facility] Comment on above: Performed By: #### C BC, CMP, MG1 ####[facility] [address] [place] [address] Bilirubin mass conc 0.8 mg/dL Normal 0.2-1.3 [facility] Comment on above: Performed By: #### C BC, CMP, MG1 ####[facility] [address] [place] [address] Calcium mass conc 9.0 mg/dL Normal 8.5-10.2 [facility] Comment on above: Performed By: #### C BC, CMP, MG1 ####[facility] [address] [place] [address] Chloride molar conc 101 mmol/L Normal 97-105 [facility] Comment on above: Performed By: #### C BC, CMP, MG1 ####[facility] [address] [place] [address] CO2 molar conc 25 mmol/L Normal 22-30 [facility] Comment on above: Performed By: #### C BC, CMP, MG1 ####[facility] [address] [place] [phone] Creatinine mass conc 0.61 mg/dL Normal 0.58-0.96 [facility] Comment on above: Performed By: #### C DELIA WILSON, MG1 ####[facility] Rddbtmfmyp0020 [address] eGFR- Amer. >60 Normal [facility] Comment on above: Performed By: #### C DELIA WILSON, MG1 ####[facility] [address]iasyrc022[address] [place] [phone] GFR/1.73 sq M predicted among non-blacks MDRD vol rate/area (S/P/Bld) mL/min/{1.73_m2} Normal [facility] Comment on above: Result Comment: eGFR [...] Performed By: #### C DELIA WILSON, MG1 ####[facility] [address] [place] [phone] Glucose mass conc 123 mg/dL High 74-99 [facility] Comment on above: Result Comment: The [place] Diabetes Association (ADA) provides guidance for cutoff [...] Standards of Medical Care in Diabetes 2016, [place] Diabetes Association. Diabetes Care. 2016.39(Suppl 1). Performed By: #### C BC, CMP, MG1 ####[facility] [address] [place] [address] Potassium molar conc 3.9 mmol/L Normal 3.7-5.1 [facility] Comment on above: Performed By: #### C BC, CMP, MG1 ####[facility] [address]xd[address] [place] [address] Protein mass conc 6.5 g/dL Normal 6.3-8.0 [facility] Comment on above: Performed By: #### C BC, CMP, MG1 ####[facility] [address] [place] [address] Sodium molar conc 137 mmol/L Normal 136-144 [facility] Comment on above: Performed By: #### C BC, CMP, MG1 ####[facility] [address] [place] [address] Urea nitrogen mass conc 5 mg/dL Low 7-21 [facility] Comment on above: Performed By: #### C BC, CMP, MG1 ####[facility] [address]uptvn4[address] [place] [address] Magnesiumon 06-11-2018 Magnesium mass conc 1.8 mg/dL Normal 1.7-2.3 [facility] Comment on above: Performed By: #### C BC, CMP, MG1 ####[facility] [address] [place] [address] PROGRESSon 06-11-2018 Protein mass conc HNO ID: [id number] Author: Fredo Morrow Service: Hospital Medicine Author Type: Physician Type: Progress Notes Filed: 06/11/2018 1:58 PM Note Text: SERVICE DATE: 06/11/2018 SERVICE TIME: 1:58 PM HOSPITAL MEDICINE PROGRESS NOTE NIGHT AND WEEKEND COVERAGE: Nights: Please contact pager [phone]. HPI Patient is a 47 year old [...] hyperglycemia, with long-term current use of insulin ([facility]) 06/08/2018 - Present Current Assessment AND [...] dose Chronic systolic CHF (congestive heart failure) ([facility]) 06/08/2018 - Present Current Assessment AND [...] 1615 vte non-pharmacologic prophylaxis - none indicated ([place]) 06/08/18 1615 activity - mobilize patient ([place]) VTE Prophylaxis: VTE prophylaxis appropriate Plan of care discussed with: Patient SIGNATURE: Fredo Morrow MD PATIENT NAME: Trenton Jackson DATE: June 11, 2018 TIME: 1:58 PM PAGER/CONTACT #: [phone] Normal [facility] CBCon 06-10-2018 Erythrocyte distribution width Ratio (RBC) 13.1 % Normal 11.5-15.0 [facility] Comment on above: Performed By: #### C DELIA WILSON, MG1 ####[facility] [address] [place] [phone] Hematocrit Volume Fraction (Bld) 41.1 % Normal 36.0-46.0 [facility] Comment on above: Performed By: #### C DELIA WILSON, MG1 ####[facility] [address]in[address] [place] [phone] Hemoglobin mass conc (Bld) 13.4 g/dL Normal 11.5-15.5 [facility] Comment on above: Performed By: #### C DELIA WILSON, MG1 ####[facility] [address] [place] [phone] MCH Entitic mass (RBC) 26.9 pG Normal 26.0-34.0 [facility] Comment on above: Performed By: #### Gideon BC, CMP, MG1 ####[facility] [address]xs[address] [place] [address] MCHC mass conc (RBC) 32.6 g/dL Normal 30.5-36.0 [facility] Comment on above: Performed By: #### Gideon BC, CMP, MG1 ####[facility] Q[address]jldy7[address] [place] [address] MCV Entitic volume (RBC) 82.4 fL Normal 80.0-100.0 [facility] Comment on above: Performed By: #### Gideon BC, CMP, MG1 ####[facility] [address] [place] [address] Platelet mean volume Entitic volume (Bld) 10.0 fL Normal 9.0-12.7 [facility] Comment on above: Performed By: #### Gideon BC, CMP, MG1 ####[facility] [address]ec[address]qpa[address] [place] [address] Platelets #/vol (Bld) 202 10*3/uL Normal 150-400 [facility] Comment on above: Performed By: #### Gideon BC, CMP, MG1 ####[facility] I[address]jojny13[address] [place] [address] RBC #/vol (Bld) 4.99 10*6/uL Normal 3.90-5.20 [facility] Comment on above: Performed By: #### Gideon BC, CMP, MG1 ####[facility] Tuefreamje0322 [place] [address] WBC #/vol (Bld) 10.93 10*3/uL Normal 3.70-11.00 [facility] Comment on above: Performed By: #### Gideon BC, CMP, MG1 ####[facility] [address]cpdk[address] [place] [address] CONSULT PROGon 06-10-2018 Protein mass conc HNO ID: [id number] Author: Jasvir Kumar Service: Gastroenterology Author Type: [...] June 10, 2018 TIME: 12:53 PM Normal [facility] Comp Metabolic Panelon 06-10 Albumin mass conc 3.0 g/dL Low 3.9-4.9 [facility] Comment on above: Performed By: #### C BC, CMP, MG1 ####[facility] [address] [place] [phone] ALP enzyme act/vol 76 U/L Normal 34-123 [facility] Comment on above: Performed By: #### C BC, CMP, MG1 ####[facility] [address] [place] [address] ALT enzyme act/vol 11 U/L Normal 7-38 [facility] Comment on above: Performed By: #### C BC, CMP, MG1 ####[facility] [address]uxs[address] [place] [address] Anion gap molar conc 8 mmol/L Low 9-18 [facility] Comment on above: Performed By: #### C BC, CMP, MG1 ####[facility] [address] [place] [address] AST enzyme act/vol 16 U/L Normal 13-35 [facility] Comment on above: Performed By: #### C BC, CMP, MG1 ####[facility] [address] [place] [address] Bilirubin mass conc 0.6 mg/dL Normal 0.2-1.3 [facility] Comment on above: Performed By: #### C BC, CMP, MG1 ####[facility] [address] [place] [address] Calcium mass conc 8.8 mg/dL Normal 8.5-10.2 [facility] Comment on above: Performed By: #### C BC, CMP, MG1 ####[place] [address] Chloride molar conc 102 mmol/L Normal 97-105 [facility] Comment on above: Performed By: #### C BC, CMP, MG1 ####[facility] [address]ms[address] [place] [address] CO2 molar conc 28 mmol/L Normal 22-30 [facility] Comment on above: Performed By: #### C BC, CMP, MG1 ####[facility] [address] [place] [address] Creatinine mass conc 0.62 mg/dL Normal 0.58-0.96 [facility] Comment on above: Performed By: #### C BC, CMP, MG1 ####[facility] [address] [place] [address] eGFR- Amer. >60 Normal [facility] Comment on above: Performed By: #### C DELIA WILSON MG1 ####[facility] Ijqeaulauv7684 [address] GFR/1.73 sq M predicted among non-blacks MDRD vol rate/area (S/P/Bld) mL/min/{1.73_m2} Normal [facility] Comment on above: Result Comment: eGFR [...] Performed By: #### C DELIA WILSON, MG1 ####[facility] [address] [place] [phone] Glucose mass conc 142 mg/dL High 74-99 [facility] Comment on above: Result Comment: The [place] Diabetes Association (ADA) provides guidance for cutoff [...] Standards of Medical Care in Diabetes 2016, [place] Diabetes Association. Diabetes Care. 2016.39(Suppl 1). Performed By: #### C DELIA WILSON, MG1 ####[facility] [address] [place] [phone] Potassium molar conc 3.4 mmol/L Low 3.7-5.1 [facility] Comment on above: Performed By: #### C DELIA WILSON, MG1 ####[facility] Ek[address]msf35[address] [place] [phone] Protein mass conc 5.5 g/dL Low 6.3-8.0 [facility] Comment on above: Performed By: #### C BC, CMP, MG1 ####[facility] Hpljvqzsfi4402 [address] Sodium molar conc 138 mmol/L Normal 136-144 [facility] Comment on above: Performed By: #### C BC, CMP, MG1 ####[facility] Jwooehhkwq6786 [address] Urea nitrogen mass conc 6 mg/dL Low 7-21 [facility] Comment on above: Performed By: #### C BC, CMP, MG1 ####[facility] Wywagqgelu0301 [address] Magnesiumon 06-10-2018 Magnesium mass conc 1.8 mg/dL Normal 1.7-2.3 [facility] Comment on above: Performed By: #### C BC, CMP, MG1 ####[facility] Scrqulgjlu1557 [address] PROGRESSon 06-10-2018 Protein mass conc HNO ID: [id number] Author: Fredo Morrow Service: Hospital Medicine Author Type: Physician Type: Progress Notes Filed: 06/10/2018 4:22 PM Note Text: SERVICE DATE: 06/10/2018 SERVICE TIME: 4:22 PM HOSPITAL MEDICINE PROGRESS NOTE NIGHT AND WEEKEND COVERAGE: Nights: Please contact pager [phone]. HPI Patient is a 47 year old [...] dose Chronic systolic CHF (congestive heart failure) ([facility]) 06/08/2018 - Present Current Assessment AND [...] ([place]) 06/08/18 1615 activity - mobilize patient ([place]) VTE Prophylaxis: VTE prophylaxis appropriate Plan of care discussed with: Patient SIGNATURE: Fredo Morrow MD PATIENT NAME: Trenton Jackson DATE: June 10, 2018 TIME: 4:22 PM PAGER/CONTACT #: [phone] [facility] CASE MGT INIT [place] 2018 CASE MGT INIT [facility] HNO ID: [id number] Author: Donna AgudeloRn) CHAYITO Gupta Service: Case Management Author Type: Registered Nurse Type: Care Mgt Initial Assessment Filed: 06/09/2018 4:47 PM Note Text: CARE MANAGEMENT: ASSESSMENT AND DISCHARGE PLAN SERVICE DATE: 06/09/2018 SERVICE TIME: 4:45 PM PRIMARY CARE PHYSICIAN: Uziel Conteh MD - Confirmed with the patient ADMISSION STATUS: Observation Needs Prior to Discharge: To Be Determined 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 No SOCIAL: Living Arrangement: Home Lives With: Spouse Financial Resources: N/A Primary Contact: Extended Emergency Contact Information Primary Emergency Contact: Curry Jackson Jr Address: [address] [place] [address] [facility] Mobile Relation: Spouse Secondary Emergency Contact: Rebecca Dueñas Address: [place] [address] [facility] Relation: Mother Supportive: Yes Other Important Patient [...] 0 I feel financially burdened by my khj-yb-moegbr expenses for my prescription medication: Disagree completely [...] patient. 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 Lives with her . CM department will continue to follow for DC needs. SIGNATURE: Donna Gupta PATIENT NAME: Trenton Jackson DATE: June 09, 2018 TIME: 4:45 PM PAGER/CONTACT #: [phone] Normal [facility] CBCon 06-09-2018 Erythrocyte distribution width Ratio (RBC) 13.0 % Normal 11.5-15.0 [facility] Comment on above: Performed By: #### H STNT #### [facility] [address] [place] [address] Hematocrit Volume Fraction (Bld) 42.5 % Normal 36.0-46.0 [facility] Comment on above: Performed By: #### H STNT #### [facility] [address] [place] [address] Hemoglobin mass conc (Bld) 14.0 g/dL Normal 11.5-15.5 [facility] Comment on above: Performed By: #### H STNT #### [facility] [address] [place] [address] MCH Entitic mass (RBC) 27.0 pG Normal 26.0-34.0 [facility] Comment on above: Performed By: #### H STNT #### [facility] [address] [place], [place] [phone] MCHC mass conc (RBC) 32.9 g/dL Normal 30.5-36.0 [facility] Comment on above: Performed By: #### H STNT #### [facility] [address] MCV Entitic volume (RBC) 82.0 fL Normal 80.0-100.0 [facility] Comment on above: Performed By: #### H STNT #### [facility] [address] [place] [phone] Platelet mean volume Entitic volume (Bld) 9.6 fL Normal 9.0-12.7 [facility] Comment on above: Performed By: #### H STNT #### [facility] [address] Platelets #/vol (Bld) 217 10*3/uL Normal 150-400 [facility] Comment on above: Performed By: #### H STNT #### [facility] [address] RBC #/vol (Bld) 5.18 10*6/uL Normal 3.90-5.20 [facility] Comment on above: Performed By: #### H STNT #### [facility] [address] [place] [phone] WBC #/vol (Bld) 8.16 10*3/uL Normal 3.70-11.00 [facility] Comment on above: Performed By: #### H STNT #### [facility] [address] [place] [phone] CONSULTon 06-09-2018 CONSULT HNO ID: [id number] Author: Jasvir Kumar Service: Gastroenterology Author Type: [...] 09, 2018 TIME: 8:21 AM PAGER: Normal [facility] Comp Metabolic Panelon 06-09 Albumin mass conc 3.5 g/dL Low 3.9-4.9 [facility] Comment on above: Performed By: #### C MP ####[facility] [address] [place] [address] ALP enzyme act/vol 83 U/L Normal 34-123 [facility] Comment on above: Performed By: #### C MP ####[facility] [address] [place] [address] ALT enzyme act/vol 12 U/L Normal 7-38 [facility] Comment on above: Performed By: #### C MP ####[place] [address] Anion gap molar conc 14 mmol/L Normal 9-18 [facility] Comment on above: Performed By: #### C MP ####[facility] [address] [place] [address] AST enzyme act/vol 14 U/L Normal 13-35 [facility] Comment on above: Performed By: #### C MP ####[facility] [address] [place] [address] Bilirubin mass conc 0.7 mg/dL Normal 0.2-1.3 [facility] Comment on above: Performed By: #### C MP ####[facility] [address] [place] [address] Calcium mass conc 8.6 mg/dL Normal 8.5-10.2 [facility] Comment on above: Performed By: #### C MP ####[facility] [address] [place] [address] Chloride molar conc 98 mmol/L Normal 97-105 [facility] Comment on above: Performed By: #### C MP ####[facility] [address] [place] [address] CO2 molar conc 22 mmol/L Normal 22-30 [facility] Comment on above: Performed By: #### C MP ####[facility] [address] [place], [place] [id number] Creatinine mass conc 0.60 mg/dL Normal 0.58-0.96 [facility] Comment on above: Performed By: #### C MP ####[facility] Snvtryjxza3463 [address] eGFR- Amer. >60 Normal [facility] Comment on above: Performed By: #### C MP ####[facility] Hvpiveerkk1002 [address] GFR/1.73 sq M predicted among non-blacks MDRD vol rate/area (S/P/Bld) mL/min/{1.73_m2} Normal [facility] Comment on above: Result Comment: eGFR [...] actual GFR. Performed By: #### C MP ####[facility] [address] [place] [address] Glucose mass conc 313 mg/dL High 74-99 [facility] Comment on above: Result Comment: The [place] Diabetes Association (ADA) provides guidance for cutoff [...] Standards of Medical Care in Diabetes 2016, [place] Diabetes Association. Diabetes Care. 2016.39(Suppl 1). Performed By: #### C MP ####[facility] Rtxlifdvif1462 [address] Potassium molar conc 3.6 mmol/L Low 3.7-5.1 [facility] Comment on above: Performed By: #### C MP ####[facility] [id number] [place] [phone] Protein mass conc 5.6 g/dL Low 6.3-8.0 [facility] Comment on above: Performed By: #### C MP ####[facility] [id number] [phone] Sodium molar conc 134 mmol/L Low 136-144 [facility] Comment on above: Performed By: #### C MP ####[facility] [id number] [place] [phone] Urea nitrogen mass conc 5 mg/dL Low 7-21 M [facility] Comment on above: Performed By: #### C MP ####[facility] [id number] [place] [phone] Magnesiumon 06-09-2018 Magnesium mass conc 1.8 mg/dL Normal 1.7-2.3 [facility] Comment on above: Performed By: #### H STNT #### [facility] [address] [facility] [phone] PROGRESSon 06-09-2018 Protein mass conc HNO ID: [id number] Author: Lisa Bocanegra Service: Hospital Medicine Author [...] 1615 vte non-pharmacologic prophylaxis - none indicated (nd,nc) 06/08/18 1615 activity - mobilize patient (nd,nc) VTE Prophylaxis: VTE prophylaxis appropriate SIGNATURE: Lisa Bocanegra MD PATIENT NAME: Trenton Jackson DATE: June 09, 2018 TIME: 4:55 PM PAGER: [phone] Normal [facility] ABD COMPL WITH UPRIGHT PA CH ESTon 06-08-2018 ABD COMPL WITH UPRIGHT PA CHEST Performed at [facility] APPROVED BY: Jose Elias Cabrera MD [...] of fecal material throughout the colon. Normal [facility] Comp Metabolic Panelon 06-08 Albumin mass conc 3.5 g/dL Low 3.9-4.9 [facility] Comment on above: Performed By: #### H STNT #### [facility] [address] [place] [address] ALP enzyme act/vol 95 U/L Normal 34-123 [facility] Comment on above: Performed By: #### H STNT #### [facility] [address] [place] [address] ALT enzyme act/vol 10 U/L Normal 7-38 [facility] Comment on above: Performed By: #### H STNT #### [facility] [address] [place] [address] Anion gap molar conc 9 mmol/L Normal 9-18 [facility] Comment on above: Performed By: #### H STNT #### [facility] [address] [place] [address] AST enzyme act/vol 14 U/L Normal 13-35 [facility] Comment on above: Performed By: #### H STNT #### [facility] [address] [place] [address] Bilirubin mass conc 0.9 mg/dL Normal 0.2-1.3 [facility] Comment on above: Performed By: #### H STNT #### [facility] [address] [address] Calcium mass conc 8.9 mg/dL Normal 8.5-10.2 [facility] Comment on above: Performed By: #### H STNT #### [facility] [address] [place] [address] Chloride molar conc 100 mmol/L Normal 97-105 [facility] Comment on above: Performed By: #### H STNT #### [facility] [address] [place] [address] CO2 molar conc 26 mmol/L Normal 22-30 [facility] Comment on above: Performed By: #### H STNT #### [facility] [address] [address] Creatinine mass conc 0.56 mg/dL Low 0.58-0.96 [facility] Comment on above: Performed By: #### H STNT #### [facility] [address] [place] [address] eGFR- Amer. >60 Normal [facility] Comment on above: Performed By: #### H STNT #### [facility] [address] [address] GFR/1.73 sq M predicted among non-blacks MDRD vol rate/area (S/P/Bld) mL/min/{1.73_m2} Normal [facility] Comment on above: Result Comment: eGFR [...] GFR. Performed By: #### H STNT #### [facility] [address] Glucose mass conc 219 mg/dL High 74-99 [facility] Comment on above: Result Comment: The [place] Diabetes Association (ADA) provides guidance for cutoff [...] Standards of Medical Care in Diabetes 2016, [place] Diabetes Association. Diabetes Care. 2016.39(Suppl 1). Performed By: #### H STNT #### [facility] [address] [place] [address] Potassium molar conc 4.0 mmol/L Normal 3.7-5.1 [facility] Comment on above: Performed By: #### H STNT #### [facility] [address] [place] [address] Protein mass conc 5.9 g/dL Low 6.3-8.0 [facility] Comment on above: Performed By: #### H STNT #### [facility] [address] [place] [address] Sodium molar conc 135 mmol/L Low 136-144 [facility] Comment on above: Performed By: #### H STNT #### [facility] [address] [place] [address] Urea nitrogen mass conc 3 mg/dL Low 7-21 M [facility] Comment on above: Performed By: #### H STNT #### [facility] [address] [place] [address] Comprehensive Panelon 2018 ALT-SGPT Blood 20 U/L Normal 14-63 [facility] Comment on above: Performed By: #### L MACU #### [address] [address] Albumin [Mass/Vol] 3.3 g/dL Low 3.4-5.0 [facility] Comment on above: Performed By: #### L MACU #### [address] [address] ALP [Catalytic activity/Vol] 111 U/L Normal 46-116 [facility] Comment on above: Performed By: #### L MACU #### [facility] [address] [place] [address] Anion gap [Moles/Vol] 15 mmol/L Normal 8-20 [facility] Comment on above: Performed By: #### L MACU #### [facility] [address] [place] [address] AST-SGOT Blood 20 U/L Normal 15-37 [facility] Comment on above: Performed By: #### L MACU #### [facility] [address] [place] [address] Bilirubin Ql (U) 1.1 mg/dL High 0.2-1.0 [facility] Comment on above: Performed By: #### L MACU #### [place] [address] Calcium [Mass/Vol] 8.9 mg/dL Normal 8.5-10.1 [facility] Comment on above: Performed By: #### L MACU #### [facility] [address] [place] [address] Chloride [Moles/Vol] 97 mmol/L Low 98-107 [facility] Comment on above: Performed By: #### L MACU #### [place] [address] CO2 Blood 25 mEq/L Normal 21-32 [facility] Comment on above: Performed By: #### L MACU #### [facility] [address] [place] [address] Creatinine [Mass/Vol] 0.52 mg/dL Normal 0.51-0.95 [facility] Comment on above: Performed By: #### L MACU #### [facility] [address] [place] [address] Glucose [Mass/Vol] 354 mg/dL High 70-99 [facility] Comment on above: Performed By: #### L MACU #### [place] [address] Potassium [Moles/Vol] 4.0 mmol/L Normal 3.5-5.1 [facility] Comment on above: Performed By: #### L MACU #### [facility] [address] [place], [place] [address] Protein [Mass/Vol] 7.0 g/dL Normal 6.4-8.2 [facility] Comment on above: Performed By: #### L MACU #### [facility] 1 [place], [place] [address] Sodium [Moles/Vol] 133 mmol/L Low 136-145 [facility] Comment on above: Performed By: #### L MACU #### [facility] 1 [place], [place] [address] Urea nitrogen [Mass/Vol] 4 mg/dL Low 7-25 [facility] Comment on above: Performed By: #### L MACU #### [facility] 1 [place], [place] [address] Urea nitrogen/Creatinine [Mass ratio] 8 mg/mg Low 10-20 [facility] Comment on above: Performed By: #### L MACU #### [facility] 1 [place], [place] [address] Glucose Meteron 06-08-2018 Glucose [Mass/Vol] 224 mg/dL High 70-99 [facility] Comment on above: Result Comment: CHAYITO Mccracken OTIFIED [place] [address] Performed By: #### L ACET #### [address] [address] HISTORY PHYSICALon 9 HISTORY PHYSICAL HNO ID: [id number] Author: Lisa Bocanegra Service: Hospital Medicine Author Type: Physician Type: HANDP Filed: 06/08/2018 8:28 PM Note Text: SERVICE DATE: 06/08/2018 SERVICE TIME: 8:28 PM HOSPITAL MEDICINE HISTORY AND PHYSICAL PCP: Uziel Conteh MD NIGHT AND WEEKEND COVERAGE: Nights: Please contact pager [phone]. SUBJECTIVE Chief Complaint: abd pain- 4 days [...] 1615 vte non-pharmacologic prophylaxis - none indicated (nd,nc) 06/08/18 1615 activity - mobilize patient ([place]) VTE Prophylaxis: VTE prophylaxis appropriate SIGNATURE: Lisa Bocanegra MD PATIENT NAME: Trenton Jackson DATE: June 08, 2018 TIME: 8:28 PM PAGER/CONTACT #: [phone] [facility] Hemoglobin A1con 06-08-2018 Hemoglobin A1c/Hemoglobin.total mass fraction (Bld) Unable to assay. No specimen received. [facility] Comment on above: Performed By: #### H STNT #### [facility] [address] [facility] [phone] Hemogram/Diffon 06-08-2018 Erythrocyte distribution width (RBC) [Ratio] 12.8 % Normal 11.5-15.9 [facility] Comment on above: Performed By: #### L MACU #### [address] [address] Hemoglobin (Bld) [Mass/Vol] 16.0 g/dL Normal 12.0-16.0 [facility] Comment on above: Performed By: #### L MACU #### [place] [address] MCHC (RBC) [Mass/Vol] 34.4 % Normal 32.0-36.0 [facility] Comment on above: Performed By: #### L MACU #### [place] [address] MCV (RBC) [Entitic vol] 80.3 fL Low 81.0-99.0 [facility] Comment on above: Performed By: #### L MACU #### [place] [address] WBC (Bld) [#/Vol] 14.0 thou/cmm High 4.8-10.8 [facility] Comment on above: Performed By: #### L MACU #### [place] [address] Hemogram/Manual Diffon 06-08 Abs. Baso 0.00 thou/cmm Normal 0.00-0.08 [facility] Comment on above: Performed By: #### L MACU #### [place] [address] Abs. Eosin 0.00 thou/cmm Normal 0.00-0.41 [facility] Comment on above: Performed By: #### L MACU #### [place] [address] Abs. Lymph 2.24 thou/cmm Normal 1.50-3.65 [facility] Comment on above: Performed By: #### L MACU #### [place] [address] Abs. Wilkinson 0.28 thou/cmm Normal 0.20-1.00 [facility] Comment on above: Performed By: #### L MACU #### [place] [address] Abs. Neut (ANC) 11.48 thou/cmm High 3.00-5.67 [facility] Comment on above: Performed By: #### L MACU #### [facility] [address] [place] [address] Basophil 0.0 % Normal [facility] Comment on above: Performed By: #### L MACU #### [facility] [address] [place] [address] Eosinophil 0.0 % Normal [facility] Comment on above: Performed By: #### L MACU #### [facility] [address] [place] [address] Lymphocyte 16.0 % Normal [facility] Comment on above: Performed By: #### L MACU #### [facility] [address] [place] [address] Monocyte 2.0 % Normal [facility] Comment on above: Performed By: #### L MACU #### [place] [address] Platelets (Bld) [#/Vol] Normal Normal [facility] Comment on above: Performed By: #### L MACU #### [place] [address] RBC morphology finding Nom (Bld) Normal Normal [facility] Comment on above: Performed By: #### L MACU #### [place] [address] Seg Neutrophil 82.0 % Normal [facility] Comment on above: Performed By: #### L MACU #### [facility] [address] [place] [address] Toxic Granulation Few Normal [facility] Comment on above: Performed By: #### L MACU #### [place] [address] WBC Morphology see below Normal [facility] Comment on above: Result Comment: Toxi c vacuoles present Performed By: #### L MACU #### [place] [address] Diff Type Manual Diff Normal [facility] Comment on above: Performed By: #### L MACU #### [facility] [address] [place] [address] Hematocrit (Bld) [Volume fraction] 46.5 % Normal 37.0-47.0 [facility] Comment on above: Performed By: #### L MACU #### [facility] [address] [place] [address] MCH (RBC) [Entitic mass] 27.6 pg Normal 27.0-31.0 [facility] Comment on above: Performed By: #### L MACU #### [place] [address] Platelet mean volume (Bld) [Entitic vol] 9.5 fl Normal 7.1-10.5 [facility] Comment on above: Performed By: #### L MACU #### [place] [address] Platelets (Bld) [#/Vol] 197 thou/cmm Normal 150-400 [facility] Comment on above: Performed By: #### L MACU #### [place] [address] RBC (Bld) [#/Vol] 5.79 mil/cmm High 4.20-5.40 [facility] Comment on above: Performed By: #### L MACU #### [place] [address] Lactic acidon 06-08-2018 Lactate [Moles/Vol] 1.2 mmol/L Normal 0.4-2.0 [facility] Comment on above: Performed By: #### L MACU #### [place] [address] MDRD eGFRon 06-08-2018 GFR/1.73 sq M predicted among non-blacks MDRD (S/P/Bld) [Vol rate/Area] mL/min/{1.73_m2} Normal >60mL/min/ 1.73m2 [facility] Comment on above: Result Comment: If t he patient is , multiply the result by 1.210. Performed By: #### L ACET #### [place] [address] NT Pro BNPon 06-08-2018 Protein mass conc 763 pg/mL High <125 [facility] Comment on above: Performed By: #### H STNT #### [facility] [address] [facility] [phone] PROGRESSon 06-08-2018 Protein mass conc HNO ID: [id number] Author: Abbi Valencia (Pharmacist) Service: Pharmacy Author [...] patient is on atorvastatin ABBI VALENCIA, PHARMD, [facility] PAGER / Extension: [phone] Normal [facility] Urinalysis Routineon 019 Appearance (U) 1+ (HAZY) Normal [facility] Comment on above: Performed By: #### L ACET #### [place] [address] Bilirubin Urine Negative Normal Negative [facility] Comment on above: Performed By: #### L ACET #### [place] [address] Color (U) YELLOW Normal [facility] Comment on above: Performed By: #### L ACET #### [place] [address] Ep Cells Urine 2-5 Normal 0-5 [facility] Comment on above: Performed By: #### L ACET #### [place] [address] Glucose Ql (U) 2+ Abnormal Negative [facility] Comment on above: Performed By: #### L ACET #### [place] [address] Hemoglobin,Urine Negative Normal Negative [facility] Comment on above: Performed By: #### L ACET #### [place] [address] Ketone Urine 1+ Abnormal Negative [facility] Comment on above: Performed By: #### L ACET #### [place] [address] Leukocytes Esterase Negative Normal Negative [facility] Comment on above: Performed By: #### L ACET #### [place] [address] Nitrites Urine Negative Normal Negative [facility] Comment on above: Performed By: #### L ACET #### [place] [address] pH (U) 7.0 [pH] Normal 5.0-8.0 [facility] Comment on above: Performed By: #### L ACET #### [place] [address] Protein (U) [Mass/Vol] Negative Normal Negative [facility] Comment on above: Performed By: #### L ACET #### [place] [address] RBC LM.HPF (Urine sed) [#/Area] 0-3 Normal 0-3 [facility] Comment on above: Performed By: #### L ACET #### [place] [address] Specific [place], Ur 1.015 Normal 1.005-1 .03 0 [facility] Comment on above: Performed By: #### L ACET #### [place] [address] Urobilinogen,Ur 0.2 EU/dL Normal 0.0-1.0 [facility] Comment on above: Performed By: #### L ACET #### [place] [address] WBC LM.HPF (Urine sed) [#/Area] NONE Normal 0-5 [facility] Comment on above: Performed By: #### L ACET #### [place] [address] Urine HCG, Qual.on 9 Beta HCG ( test) Ql (U) Negative Normal Negative [facility] Comment on above: Performed By: #### L ACET #### [facility] [id number] ABDOMEN AND PELVIS WITH C ONTRASTon 06-07-2018 CT ABDOMEN AND PELVIS WITH CONTRAST Performed at [facility] APPROVED BY: Chalo Russell MD EXAMINATION: [...] evidence of an abscess or pneumoperitoneum Normal [facility] Comprehensive Panelon 2018 Albumin [Mass/Vol] 3.5 g/dL Normal 3.4-5.0 [facility] Comment on above: Performed By: #### L MACU #### [facility] [address] [place] [address] ALP [Catalytic activity/Vol] 112 U/L Normal 46-116 [facility] Comment on above: Performed By: #### L MACU #### [facility] [address] [place] [address] ALT-SGPT Blood 17 U/L Normal 14-63 [facility] Comment on above: Performed By: #### L MACU #### [facility] [address] [place] [address] Anion gap [Moles/Vol] 14 mmol/L Normal 8-20 [facility] Comment on above: Performed By: #### L MACU #### [facility] [address] [place] [address] AST-SGOT Blood 16 U/L Normal 15-37 [facility] Comment on above: Performed By: #### L MACU #### [facility] [address] [place] [address] Bilirubin Ql (U) 0.7 mg/dL Normal 0.2-1.0 [facility] Comment on above: Performed By: #### L MACU #### [facility] [address] [place] [address] Calcium [Mass/Vol] 9.1 mg/dL Normal 8.5-10.1 [facility] Comment on above: Performed By: #### L MACU #### [facility] [address] [place] [address] Chloride [Moles/Vol] 97 mmol/L Low 98-107 [facility] Comment on above: Performed By: #### L MACU #### [facility] [address] [place] [address] CO2 Blood 27 mEq/L Normal 21-32 [facility] Comment on above: Performed By: #### L MACU #### [facility] 1 [place], [place] [address] Creatinine [Mass/Vol] 0.57 mg/dL Normal 0.51-0.95 [facility] Comment on above: Performed By: #### L MACU #### [facility] [address] [place], [place] [address] Glucose [Mass/Vol] 416 mg/dL Critically high 70-99 [facility] Comment on above: Performed By: #### L MACU #### [facility] [address] [place], [place] [address] Potassium [Moles/Vol] 3.9 mmol/L Normal 3.5-5.1 [facility] Comment on above: Performed By: #### L MACU #### [facility] [address] [place], [place] [address] Protein [Mass/Vol] 7.4 g/dL Normal 6.4-8.2 [facility] Comment on above: Performed By: #### L MACU #### [facility] [address] [place], [place] [address] Sodium [Moles/Vol] 134 mmol/L Low 136-145 [facility] Comment on above: Performed By: #### L MACU #### [facility] [address] [place], [place] [address] Urea nitrogen [Mass/Vol] 7 mg/dL Normal 7-25 [facility] Comment on above: Performed By: #### L MACU #### [address] [address] Urea nitrogen/Creatinine [Mass ratio] 12 mg/mg Normal 10-20 [facility] Comment on above: Performed By: #### L MACU #### [facility] [address] [place], [place] [address] Glucose Meteron 06-07-2018 Glucose [Mass/Vol] 326 mg/dL High 70-99 [facility] Comment on above: Result Comment: CHAYITO MÉNDEZ MD NOTIFIED Testing performed at [address] [address] Performed By: #### L MACU #### [facility] [address] [place] [address] Hemogram/Diffon 06-07-2018 Abs. Baso 0.07 thou/cmm Normal 0.00-0.08 [facility] Comment on above: Performed By: #### L CBCD #### [facility] [address] [place] [address] Abs. Wilkinson 0.43 thou/cmm Normal 0.20-1.00 [facility] Comment on above: Performed By: #### L CBCD #### [place] [address] Abs. Neut (ANC) 9.53 thou/cmm High 3.00-5.67 [facility] Comment on above: Performed By: #### L CBCD #### [place] [address] Basophils/100 WBC (Bld) 0.6 % Normal [facility] Comment on above: Performed By: #### L CBCD #### [place] [address] Eosinophils (Bld) [#/Vol] 0.17 thou/cmm Normal 0.00-0.41 [facility] Comment on above: Performed By: #### L CBCD #### [place] [address] Eosinophils/100 WBC (Bld) 1.4 % Normal [facility] Comment on above: Performed By: #### L CBCD #### [place] [address] Erythrocyte distribution width (RBC) [Ratio] 12.8 % Normal 11.5-15.9 [facility] Comment on above: Performed By: #### L CBCD #### [place] [address] Hematocrit (Bld) [Volume fraction] 47.7 % High 37.0-47.0 [facility] Comment on above: Performed By: #### L CBCD #### [place] [address] Hemoglobin (Bld) [Mass/Vol] 16.1 g/dL High 12.0-16.0 [facility] Comment on above: Performed By: #### L CBCD #### [facility] 1 [place], [place] [address] Lymphocytes (Bld) [#/Vol] 2.00 thou/cmm Normal 1.50-3.65 [facility] Comment on above: Performed By: #### L CBCD #### [facility] 1 [place], [place] [address] Lymphocytes/100 WBC (Bld) 16.4 % Normal [facility] Comment on above: Performed By: #### L CBCD #### [facility] [address] [place] [address] MCH (RBC) [Entitic mass] 27.3 pg Normal 27.0-31.0 [facility] Comment on above: Performed By: #### L CBCD #### [place] [address] MCHC (RBC) [Mass/Vol] 33.8 % Normal 32.0-36.0 [facility] Comment on above: Performed By: #### L CBCD #### [place] [address] MCV (RBC) [Entitic vol] 81.0 fL Normal 81.0-99.0 [facility] Comment on above: Performed By: #### L CBCD #### [place] [address] Monocytes/100 WBC (Bld) 3.5 % Normal [facility] Comment on above: Performed By: #### L CBCD #### [place] [address] Platelet mean volume (Bld) [Entitic vol] 9.5 fL Normal 7.1-10.5 [facility] Comment on above: Performed By: #### L CBCD #### [address] [address] Platelets (Bld) [#/Vol] 235 thou/cmm Normal 150-400 [facility] Comment on above: Performed By: #### L CBCD #### [facility] [address] [place] [address] RBC (Bld) [#/Vol] 5.89 mil/cmm High 4.20-5.40 [facility] Comment on above: Performed By: #### L CBCD #### [facility] [address] [place] [address] Seg Neutrophil 78.1 % Normal [facility] Comment on above: Performed By: #### L CBCD #### [facility] [address] [place] [address] WBC (Bld) [#/Vol] 12.2 thou/cmm High 4.8-10.8 [facility] Comment on above: Performed By: #### L CBCD #### [place] [address] Lactic acidon 06-07-2018 Lactate [Moles/Vol] 1.6 mmol/L Normal 0.4-2.0 [facility] Comment on above: Performed By: #### L MACU #### [place] [address] MDRD eGFRon 06-07-2018 GFR/1.73 sq M predicted among non-blacks MDRD (S/P/Bld) [Vol rate/Area] mL/min/{1.73_m2} Normal >60mL/min/ 1.73m2 [facility] Comment on above: Result Comment: If t he patient is , multiply the result by 1.210. Performed By: #### L MACU #### [facility] [address] [place] [address] Macroscopic Urinalysison Appearance (U) CLEAR Normal [facility] Comment on above: Performed By: #### L MACU #### [facility] [address] [place] [address] Bilirubin Urine Negative Normal Negative [facility] Comment on above: Performed By: #### L MACU #### [place] [address] Color (U) YELLOW Normal [facility] Comment on above: Performed By: #### L MACU #### [facility] [address] [place] [address] Glucose Ql (U) 3+ Abnormal Negative [facility] Comment on above: Performed By: #### L MACU #### [place] [address] Hemoglobin,Urine Negative Normal Negative [facility] Comment on above: Performed By: #### L MACU #### [place] [address] Ketone Urine TRACE Abnormal Negative [facility] Comment on above: Performed By: #### L MACU #### [place] [address] Leukocytes Esterase Negative Normal Negative [facility] Comment on above: Performed By: #### L MACU #### [place] [address] Nitrites Urine Negative Normal Negative [facility] Comment on above: Performed By: #### L MACU #### [place] [address] pH (U) 6.5 [pH] Normal 5.0-8.0 [facility] Comment on above: Performed By: #### L MACU #### [place] [address] Protein (U) [Mass/Vol] Negative Normal Negative [facility] Comment on above: Performed By: #### L MACU #### [place] [address] Specific [place], Ur <=1.005 Normal 1.005-1 .03 0 [facility] Comment on above: Performed By: #### L MACU #### [place] [address] Urobilinogen,Ur 0.2 EU/dL Normal 0.0-1.0 [facility] Comment on above: Performed By: #### L MACU #### [place] [address] [address] ABDOMEN AND PELVIS WITH C ONTRASTon 06-04-2018 CT ABDOMEN AND PELVIS WITH CONTRAST Performed at [facility] APPROVED BY: Nixon Cortez MD EXAM [...] additional stable chronic findings as above Normal [facility] Comprehensive Panelon 2018 Albumin [Mass/Vol] 3.9 g/dL Normal 3.4-5.0 [facility] Comment on above: Performed By: #### L P14 #### [facility] [address] [place] [address] ALP [Catalytic activity/Vol] 139 U/L High 46-116 [facility] Comment on above: Performed By: #### L P14 #### [place] [address] ALT-SGPT Blood 22 U/L Normal 14-63 [facility] Comment on above: Performed By: #### L P14 #### [place] [address] Anion gap [Moles/Vol] 13 mmol/L Normal 8-20 [facility] Comment on above: Performed By: #### L P14 #### [place] [address] AST-SGOT Blood 19 U/L Normal 15-37 [facility] Comment on above: Performed By: #### L P14 #### [place] [address] Bilirubin Ql (U) 0.7 mg/dL Normal 0.2-1.0 [facility] Comment on above: Performed By: #### L P14 #### [facility] [address] [place] [address] Calcium [Mass/Vol] 9.5 mg/dL Normal 8.5-10.1 [facility] Comment on above: Performed By: #### L P14 #### [facility] [address] [place] [address] Chloride [Moles/Vol] 97 mmol/L Low 98-107 [facility] Comment on above: Performed By: #### L P14 #### [place] [address] CO2 Blood 23 mEq/L Normal 21-32 [facility] Comment on above: Performed By: #### L P14 #### [facility] [address] [place], [place] [address] Creatinine [Mass/Vol] 0.56 mg/dL Normal 0.51-0.95 [facility] Comment on above: Performed By: #### L P14 #### [facility] [address] [place], [place] [address] Glucose [Mass/Vol] 323 mg/dL High 70-99 [facility] Comment on above: Performed By: #### L P14 #### [facility] [address] [place], [place] [address] Potassium [Moles/Vol] 4.5 mmol/L Normal 3.5-5.1 [facility] Comment on above: Performed By: #### L P14 #### [address] [address] Protein [Mass/Vol] 8.0 g/dL Normal 6.4-8.2 [facility] Comment on above: Performed By: #### L P14 #### [address] [address] Sodium [Moles/Vol] 129 mmol/L Low 136-145 [facility] Comment on above: Performed By: #### L P14 #### [address] [address] Urea nitrogen [Mass/Vol] 9 mg/dL Normal 7-25 [facility] Comment on above: Performed By: #### L P14 #### [address] [address] Urea nitrogen/Creatinine [Mass ratio] 16 mg/mg Normal 10-20 [facility] Comment on above: Performed By: #### L P14 #### [address] [address] HCG, Qual. Serumon 9 HCG, Qual. Serum Negative Normal Negative [facility] Comment on above: Performed By: #### L SHCG #### [address] [address] Hemogram/Manual Diffon 06-04 Abs. Baso 0.00 thou/cmm Normal 0.00-0.08 [facility] Comment on above: Performed By: #### L MCBD #### [facility] [address] [place] [address] Abs. Eosin 0.17 thou/cmm Normal 0.00-0.41 [facility] Comment on above: Performed By: #### L MCBD #### [facility] [address] [place] [address] Abs. Lymph 3.46 thou/cmm Normal 1.50-3.65 [facility] Comment on above: Performed By: #### L MCBD #### [facility] [address] [place] [address] Abs. Wilkinson 0.69 thou/cmm Normal 0.20-1.00 [facility] Comment on above: Performed By: #### L MCBD #### [facility] [address] [place] [address] Abs. Neut (ANC) 12.98 thou/cmm High 3.00-5.67 [facility] Comment on above: Performed By: #### L MCBD #### [facility] [address] [place] [address] Atypical Lymph 3.0 % Normal [facility] Comment on above: Performed By: #### L MCBD #### [place] [address] Basophil 0.0 % Normal [facility] Comment on above: Performed By: #### L MCBD #### [facility] [address] [place] [address] Eosinophil 1.0 % Normal [facility] Comment on above: Performed By: #### L MCBD #### [facility] [address] [place] [address] Lymphocyte 17.0 % Normal [facility] Comment on above: Performed By: #### L MCBD #### [place] [address] Metamyelocytes 2.0 % Normal [facility] Comment on above: Performed By: #### L MCBD #### [facility] [address] [place] [address] Monocyte 4.0 % Normal [facility] Comment on above: Performed By: #### L MCBD #### [facility] [address] [place] [address] Platelets (Bld) [#/Vol] Normal Normal [facility] Comment on above: Performed By: #### L MCBD #### [facility] [address] [place] [address] RBC morphology finding Nom (Bld) Normal Normal [facility] Comment on above: Performed By: #### L MCBD #### [facility] [address] [place] [address] Seg Neutrophil 73.0 % Normal [facility] Comment on above: Performed By: #### L MCBD #### [place] [address] Toxic Granulation Few Normal [facility] Comment on above: Performed By: #### L MCBD #### [place] [address] WBC Morphology see below Normal [facility] Comment on above: Result Comment: Toxi c vacuoles present Performed By: #### L MCBD #### [place] [address] Diff Type Manual Diff Normal [facility] Comment on above: Performed By: #### L MCBD #### [place] [address] Erythrocyte distribution width (RBC) [Ratio] 13.2 % Normal 11.5-15.9 [facility] Comment on above: Performed By: #### L MCBD #### [facility] [address] [place] [address] Hematocrit (Bld) [Volume fraction] 51.8 % High 37.0-47.0 [facility] Comment on above: Performed By: #### L MCBD #### [place] [address] Hemoglobin (Bld) [Mass/Vol] 17.7 g/dL High 12.0-16.0 [facility] Comment on above: Performed By: #### L MCBD #### [facility] [address] [place], [place] [address] MCH (RBC) [Entitic mass] 27.5 pg Normal 27.0-31.0 [facility] Comment on above: Performed By: #### L MCBD #### [facility] [address] [place], [place] [address] MCHC (RBC) [Mass/Vol] 34.2 % Normal 32.0-36.0 [facility] Comment on above: Performed By: #### L MCBD #### [facility] [address] [place] [address] MCV (RBC) [Entitic vol] 80.4 fl Low 81.0-99.0 [facility] Comment on above: Performed By: #### L MCBD #### [facility] [address] [place] [address] Platelet mean volume (Bld) [Entitic vol] 10.3 fl Normal 7.1-10.5 [facility] Comment on above: Performed By: #### L MCBD #### [facility] [address] [place] [address] Platelets (Bld) [#/Vol] 224 thou/cmm Normal 150-400 [facility] Comment on above: Performed By: #### L MCBD #### [facility] [address] [place] [address] RBC (Bld) [#/Vol] 6.44 mil/cmm High 4.20-5.40 [facility] Comment on above: Performed By: #### L MCBD #### [facility] [address] [place] [address] WBC (Bld) [#/Vol] 17.3 thou/cmm High 4.8-10.8 [facility] Comment on above: Performed By: #### L MCBD #### [facility] [address] [place] [address] Ketoneson 06-04-2018 Ketones Ql (U) Negative Normal Negative [facility] Comment on above: Performed By: #### L ACET #### [facility] [address] [place] [address] Lipase Bloodon 06-04-2018 Lipase Blood 85 U/L Normal 73-393 [facility] Comment on above: Performed By: #### L LIP #### [place] [address] MDRD eGFRon 06-04-2018 GFR/1.73 sq M predicted among non-blacks MDRD (S/P/Bld) [Vol rate/Area] mL/min/{1.73_m2} Normal >60mL/min/ 1.73m2 [facility] Comment on above: Result Comment: If t he patient is , multiply the result by 1.210. Performed By: #### L GFR #### [place] [address] Macroscopic Urinalysison Appearance (U) CLEAR Normal [facility] Comment on above: Performed By: #### L MACU #### [place] [address] Bilirubin Urine Negative Normal Negative [facility] Comment on above: Performed By: #### L MACU #### [place] [address] Color (U) YELLOW Normal [facility] Comment on above: Performed By: #### L MACU #### [place] [address] Glucose Ql (U) 2+ Abnormal Negative [facility] Comment on above: Performed By: #### L MACU #### [place] [address] Hemoglobin,Urine Negative Normal Negative [facility] Comment on above: Performed By: #### L MACU #### [place] [address] Ketone Urine Negative Normal Negative [facility] Comment on above: Performed By: #### L MACU #### [place] [address] Leukocytes Esterase Negative Normal Negative [facility] Comment on above: Performed By: #### L MACU #### [facility] [address] [place] [address] Nitrites Urine Negative Normal Negative [facility] Comment on above: Performed By: #### L MACU #### [facility] [address] [place] [address] pH (U) 5.0 [pH] Normal 5.0-8.0 [facility] Comment on above: Performed By: #### L MACU #### [place] [address] Protein (U) [Mass/Vol] Negative Normal Negative [facility] Comment on above: Performed By: #### L MACU #### [place] [address] Specific [place], Ur 1.020 Normal 1.005-1 .03 0 [facility] Comment on above: Performed By: #### L MACU #### [place] [address] Urobilinogen,Ur 0.2 EU/dL Normal 0.0-1.0 [facility] Comment on above: Performed By: #### L MACU #### [place] [address] Macroscopic Urinalysison Appearance (U) CLEAR Normal [facility] Comment on above: Performed By: #### L MACU #### [place] [address] Bilirubin Urine Negative Normal Negative [facility] Comment on above: Performed By: #### L MACU #### [place] [address] Color (U) YELLOW Normal [facility] Comment on above: Performed By: #### L MACU #### [place] [address] Glucose Ql (U) 2+ Abnormal Negative [facility] Comment on above: Performed By: #### L MACU #### [place] [address] Hemoglobin,Urine Negative Normal Negative [facility] Comment on above: Performed By: #### L MACU #### [facility] [address] [place] [address] Ketone Urine Negative Normal Negative [facility] Comment on above: Performed By: #### L MACU #### [facility] [address] [place] [address] Leukocytes Esterase Negative Normal Negative [facility] Comment on above: Performed By: #### L MACU #### [facility] [address] [place] [address] Nitrites Urine Negative Normal Negative [facility] Comment on above: Performed By: #### L MACU #### [place] [address] pH (U) 6.0 [pH] Normal 5.0-8.0 [facility] Comment on above: Performed By: #### L MACU #### [place] [address] Protein (U) [Mass/Vol] Negative Normal Negative [facility] Comment on above: Performed By: #### L MACU #### [facility] [address] [place] [address] Specific [place], Ur 1.020 Normal 1.005-1 .03 0 [facility] Comment on above: Performed By: #### L MACU #### [place] [address] Urobilinogen,Ur 0.2 EU/dL Normal 0.0-1.0 [facility] Comment on above: Performed By: #### L MACU #### [place] [address] CBC and Differentialon 12-14 Abs Baso 0.06 k/uL Normal <0.11 [facility] Comment on above: Performed By: #### N MENDEZ VELÁSQUEZMB #### [facility] [address] [place] [address] Abs Wilkinson 0.69 k/uL Normal <0.87 [facility] Comment on above: Performed By: #### N DIDIER CKAMARILISMB #### [facility] [address] [place] [address] Abs Neut 8.14 k/uL High 1.45-7.50 [facility] Comment on above: Performed By: #### N TBAMOR CKCKMB #### [facility] [address] Basophils/100 WBC (Bld) 0.5 % Normal [facility] Comment on above: Performed By: #### N TBNP CKCKMB #### [facility] [address] [place] [address] Eosinophils #/vol (Bld) 0.14 10*3/uL Normal <0.46 [facility] Comment on above: Performed By: #### N TBAMOR CKCKMB #### [facility] [address] [place] [address] Eosinophils/100 WBC (Bld) 1.2 % Normal [facility] Comment on above: Performed By: #### N TBAMOR CKCKMB #### [facility] [address] [place] [address] Erythrocyte distribution width Ratio (RBC) 13.1 % Normal 11.5-15.0 [facility] Comment on above: Performed By: #### N TBAMOR CKCKMB #### [facility] [address] [place] [address] Hematocrit Volume Fraction (Bld) 46.6 % High 36.0-46.0 [facility] Comment on above: Performed By: #### N TBAMOR CKCKMB #### [facility] [address] [place] [address] Hemoglobin mass conc (Bld) 15.9 g/dL High 11.5-15.5 [facility] Comment on above: Performed By: #### N TBNP, CKCKMB #### [facility] [address] [place] [address] Lymphocytes #/vol (Bld) 2.69 10*3/uL Normal 1.00-4.00 [facility] Comment on above: Performed By: #### N TBNP, CKCKMB #### [facility] [address] [place], [place] [id number] Lymphocytes/100 WBC (Bld) 23.0 % Normal [facility] Comment on above: Performed By: #### N TBNP CKCKMB #### [facility] [address] [place] [address] MCH Entitic mass (RBC) 28.0 pG Normal 26.0-34.0 [facility] Comment on above: Performed By: #### N DIDIER CKCKMB #### [facility] [address] [place] [address] MCHC mass conc (RBC) 34.1 g/dL Normal 30.5-36.0 [facility] Comment on above: Performed By: #### N DIDIER CKCKMB #### [facility] [address] [place] [address] MCV Entitic volume (RBC) 82.0 fL Normal 80.0-100.0 [facility] Comment on above: Performed By: #### N DIDIER CKAMARILISMB #### [facility] [address] [place] [address] Monocytes/100 WBC (Bld) 5.9 % Normal [facility] Comment on above: Performed By: #### N DIDIER CKAMARILISMB #### [facility] [address] [place] [address] Neutrophils/100 WBC (Bld) 69.4 % Normal [facility] Comment on above: Performed By: #### N DIDIER CKAMARILISMB #### [facility] [address] [place] [address] Platelet mean volume Entitic volume (Bld) 10.5 fL Normal 9.0-12.7 [facility] Comment on above: Performed By: #### N DIDIER CKCKMB #### [facility] [address] [place] [address] Platelets #/vol (Bld) 236 10*3/uL Normal 150-400 [facility] Comment on above: Performed By: #### N DIDIER CKCKMB #### [facility] [address] [place] [address] RBC #/vol (Bld) 5.68 10*6/uL High 3.90-5.20 [facility] Comment on above: Performed By: #### N DIDIER CKCKMB #### [facility] [address] [place] [address] WBC #/vol (Bld) 11.72 10*3/uL High 3.70-11.00 [facility] Comment on above: Performed By: #### N TBNP, CKCKMB #### [facility] [address] [place] [phone] CK, Total and CKMBon 018 CK enzyme act/vol 41 U/L Low 42-196 [facility] Comment on above: Performed By: #### N TBNP, CKCKMB #### [facility] [address] [place] [phone] CK MB % CK MB % not reported with CK <100 U/L. Normal 0.0-4.0 [facility] Comment on above: Performed By: #### N TBNP, CKCKMB #### [facility] [address] [place] [phone] MB 1.5 ng/mL Normal <4.3 [facility] Comment on above: Performed By: #### N TBNP, CKCKMB #### [facility] [address] [place] [phone] CT CHEST W IVCON PEon 2017 CT CHEST W IVCON PE * * *Final Report* * * DATE OF EXAM: Dec 14 2017 6:46PM [facility] 0540 - CT CHEST W IVCON PE [...] nodes. Cholecystectomy. Bilateral adrenal nodules, possibly adenomas. Prosthetics Lab Technician: GEORGE Transcribe Date/Time: Dec 14 2017 7:14P Dictated by : WILLA VELASCO MD This examination was interpreted and the report reviewed and electronically signed by: WILLA VELASCO MD on Dec 14 2017 7:21PM EST [id number] Normal [facility] Metabolic Panelon 12-14 Albumin mass conc 3.8 g/dL Low 3.9-4.9 [facility] Comment on above: Performed By: #### N DIDIER CKCKMB #### [facility] [address] [place] [address] ALP enzyme act/vol 82 U/L Normal 32-117 [facility] Comment on above: Performed By: #### N DIDIER CKCKMB #### [facility] [address] [place] [address] ALT enzyme act/vol 17 U/L Normal 7-38 [facility] Comment on above: Performed By: #### N DIDIER CKCKMB #### [facility] [address] [place] [address] Anion gap molar conc 10 mmol/L Normal 9-18 [facility] Comment on above: Performed By: #### N TBAMOR CKCKMB #### [facility] [address] [place] [address] AST enzyme act/vol 17 U/L Normal 13-35 [facility] Comment on above: Performed By: #### N TBAMOR CKCKMB #### [facility] [address] [place] [address] Bilirubin mass conc 0.6 mg/dL Normal 0.2-1.3 [facility] Comment on above: Performed By: #### N TBAMOR CKCKMB #### [facility] [address] [place] [address] Calcium mass conc 8.9 mg/dL Normal 8.5-10.2 [facility] Comment on above: Performed By: #### N TBAMOR CKCKMB #### [facility] [address] [place] [address] Chloride molar conc 99 mmol/L Normal 97-105 [facility] Comment on above: Performed By: #### N TBAMOR CKCKMB #### [facility] [address] [place] [address] CO2 molar conc 28 mmol/L Normal 22-30 [facility] Comment on above: Performed By: #### N TBAMOR CKCKMB #### [facility] [address] [place] [address] Creatinine mass conc 0.67 mg/dL Normal 0.58-0.96 [facility] Comment on above: Performed By: #### N TBAMOR CKCKMB #### [facility] [address] [place] [address] eGFR- Amer. >60 Normal [facility] Comment on above: Performed By: #### N TBAMOR CKCKMB #### [facility] [address] [place] [address] GFR/1.73 sq M predicted among non-blacks MDRD vol rate/area (S/P/Bld) mL/min/{1.73_m2} Normal [facility] Comment on above: Result Comment: eGFR [...] Performed By: #### N HITESH VELÁSQUEZ #### [facility] [address] [place] [address] Glucose mass conc 180 mg/dL High 74-99 [facility] Comment on above: Result Comment: The [place] Diabetes Association (ADA) provides guidance for cutoff [...] Standards of Medical Care in Diabetes 2016, [place] Diabetes Association. Diabetes Care. 2016.39(Suppl 1). Performed By: #### N DIDIER CKAMARILISMB #### [facility] [address] [place] [address] Potassium molar conc 4.2 mmol/L Normal 3.7-5.1 [facility] Comment on above: Performed By: #### N DIDIER CKCKMB #### [facility] [address] [place] [address] Protein mass conc 6.9 g/dL Normal 6.3-8.0 [facility] Comment on above: Performed By: #### N DIDIER CKCKMB #### [facility] [address] [place] [address] Sodium molar conc 137 mmol/L Normal 136-144 [facility] Comment on above: Performed By: #### N DIDIER CKCKMB #### [facility] [address] [place] [address] Urea nitrogen mass conc 9 mg/dL Normal 7-21 [facility] Comment on above: Performed By: #### N DIDIER CKCKMB #### [facility] [address] [place] [address] D dimeron 12-14-2017 D dimer 600 ng/mL FEU High 0-500 [facility] Comment on above: Result Comment: The [...] Performed By: #### N TBNP, CKCKMB #### [facility] [address] [facility] [phone] ED NOTEon 12-14-2017 ED NOTE HNO ID: [id number] Author: Stacey Sloano) CHAYITO Godinez Service: (none) Author Type: Registered Nurse Type: ED Notes Filed: 12/14/2017 7:58 PM Note Text: Patient in stable condition upon discharge. resp even and unlabored. No distress noted. Patient states she is feeling much better. Discharge and follow up reviewed, plan of care is agreed upon. Patient thankful for care upon discharge. [facility] ED NOTE HNO ID: [id number] Author: Lyla Ramírez RN Service: Nursing Author Type: Registered Nurse Type: ED Notes Filed: 12/14/2017 6:43 PM Note Text: Patient returned to the Emergency Department. [facility] ED NOTE HNO ID: [id number] Author: Lyla Ramírez RN Service: Nursing Author Type: Registered Nurse Type: ED Notes Filed: 12/14/2017 6:31 PM Note Text: Pt to CT with tech via wheelchair [facility] ED NOTE HNO ID: [id number] Author: Lyla Ramírez RN Service: Nursing Author Type: Registered Nurse Type: ED Notes Filed: 12/14/2017 6:14 PM Note Text: Dr. Conway rounding on pt at bedside [facility] ED NOTE HNO ID: [id number] Author: Lyla Ramírez RN Service: Nursing Author Type: Registered Nurse Type: ED Notes Filed: 12/14/2017 3:31 PM Note Text: Patient returned to the Emergency Department. [facility] ED NOTE HNO ID: [id number] Author: Lyla (Rn) CHAYITO Ramírez Service: Nursing Author Type: Registered Nurse Type: ED Notes Filed: 12/14/2017 3:25 PM Note Text: Pt to xray with tech. [facility] ED NOTE HNO ID: [id number] Author: Jazzmine AgudeloRn) CHAYITO Jarrett Service: Emergency Medicine Author Type: Registered Nurse Type: ED Notes Filed: 12/14/2017 3:28 PM Note Text: Report off care to Racquel STRATTON [facility] ED NOTE HNO ID: [id number] Author: Stacey AgudeloRn) CHAYITO Godinez Service: (none) Author Type: Registered Nurse Type: ED Notes Filed: 12/14/2017 2:57 PM Note Text: Patient presents to ED with chest pain x 4 days. Seen at [facility] and recently dc from [facility] ED PROV NOTEon 12-14-2017 Protein mass conc HNO ID: [id number] Author: Jimmie Conway DO Service: Emergency Medicine Author Type: Physician Type: ED Provider Notes Filed: 12/14/2017 7:42 PM Note Text: ED Provider Note Patient Name: Trenton Jackson SERVICE DATE: 12/14/17 History Patient presents with: Chest Pain 47-year-old female past medical history of diabetes hypertension hyperlipidemia tobacco abuse presents with chest pain. 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 Beyer Consultation recommendations unlikely to be related to recently diagnosed coronary artery dissection Stable upon arrival. EKG shows chronic abnormalities unchanged from recent EKGs.. Treated with aspirin followed by Toradol. Cardiac enzymes including troponin T and CK-MB within normal limits. Minimal leukocytosis noted. Chest x-ray negative. D-dimer mildly elevated. CT chest negative. Discussed with on-call laundry housekeeping aide, chest pain unlikely to be related to recently diagnosed coronary artery dissection. Patient with significant improvement pain post analgesia as noted above. Will be discharged home in stable condition with continued use of previously prescribed tramadol and new prescription for Flexeril thoroughly notified of sedating effects. Referral provided to painter apprentice, will follow-up with both laundry housekeeping aide and primary care physician as soon as [...] DO Jimmie Helm DO 12/14/17 194 Normal [facility] Magnesiumon 12-14-2017 Magnesium mass conc 1.9 mg/dL Normal 1.7-2.3 [facility] Comment on above: Performed By: #### N TBAMOR, CKCKMB #### [facility] [address] [facility] [phone] Troponin Ton 12-14-2017 Troponin T.cardiac mass conc ug/L Normal 0.000-0.02 9 [facility] Comment on above: Performed By: #### N TBNP, CKCKMB #### [facility] [address] [facility] [phone] XR CHEST 2V FRONTAL/LATon XR CHEST 2V [...] Other: . IMPRESSION: No acute radiographic abnormality. Prosthetics Lab Technician: GEORGE Transcribe Date/Time: Dec 14 2017 3:44P Dictated by : WILLA VELASCO MD This examination was interpreted and the report reviewed and electronically signed by: WILLA VELASCO MD on Dec 14 2017 3:44PM EST [id number] Normal [facility] CBCon 12-04-2017 Erythrocyte distribution width Ratio (RBC) 13.1 % Normal 11.5-15.0 [facility] Comment on above: Performed By: #### C BCDIF, PT, PTT, CMP #### [facility] [address] [address] Hematocrit Volume Fraction (Bld) 44.2 % Normal 36.0-46.0 [facility] Comment on above: Performed By: #### C BCDIF, PT, PTT, CMP #### [facility] [address] [place] [address] Hemoglobin mass conc (Bld) 14.8 g/dL Normal 11.5-15.5 [facility] Comment on above: Performed By: #### C BCDIF, PT, PTT, CMP #### [facility] [address] [place] [address] MCH Entitic mass (RBC) 27.5 pG Normal 26.0-34.0 [facility] Comment on above: Performed By: #### C BCDIF, PT, PTT, CMP #### [facility] [address] [place] [address] MCHC mass conc (RBC) 33.5 g/dL Normal 30.5-36.0 [facility] Comment on above: Performed By: #### C BCDIF, PT, PTT, CMP #### [facility] [address] [place] [address] MCV Entitic volume (RBC) 82.0 fL Normal 80.0-100.0 [facility] Comment on above: Performed By: #### C BCDIF, PT, PTT, CMP #### [facility] [address] [place], [place] [id number] Platelet mean volume Entitic volume (Bld) 10.1 fL Normal 9.0-12.7 [facility] Comment on above: Performed By: #### C BCDIF, PT, PTT, CMP #### [facility] [address] [place], [place] [id number] Platelets #/vol (Bld) 227 10*3/uL Normal 150-400 [facility] Comment on above: Performed By: #### C BCDIF, PT, PTT, CMP #### [facility] [address] [facility] [phone] RBC #/vol (Bld) 5.39 10*6/uL High 3.90-5.20 [facility] Comment on above: Performed By: #### C BCDIF, PT, PTT, CMP #### [facility] [address] [phone] WBC #/vol (Bld) 9.07 10*3/uL Normal 3.70-11.00 [facility] Comment on above: Performed By: #### C BCDIF, PT, PTT, CMP #### [facility] [address] [phone] CNCOon 12-04-2017 CNCO Letter Text December 04, 2017 Trenton Jackson [address] [facility] [address] Dear Ms. Jackson, The nurses and staff of [facility] hope this letter finds you feeling [...] free to contact me, Bety Alcaraz RN ([phone]) or email me at, [email or web address] Additionally, you will receive a survey in [...] participation and thank you for choosing the [facility] for your health needs. Sincerely, [employer]: Bety Alcaraz RN ([phone]) [facility] Unit: 3 [facility] CONSULT PROGon 12-04-2017 Protein mass conc HNO ID: [id number] Author: Jevon Sherman Service: Clinical Cardiology Author [...] has anginal chest pain - transfer to [facility] for viability study with MRI or PET, and consider CABG with BRUCE-LAD if there is evidence of viability - continue aspirin and statin - continue ACEI - continue metoprolol - smoking cessation ? SIGNATURE: Jevon Sherman MD PATIENT NAME: Trenton Jackson DATE: December 04, 2017 TIME: 2:26 PM PAGER/CONTACT #: Normal [facility] Comp Metabolic Panelon 12-04 Albumin mass conc 3.3 g/dL Low 3.9-4.9 [facility] Comment on above: Performed By: #### C BCDIF, PT, PTT, CMP #### [facility] [address] [place] [address] ALP enzyme act/vol 77 U/L Normal 32-117 [facility] Comment on above: Performed By: #### C BCDIF, PT, PTT, CMP #### [facility] [address] [place] [address] ALT enzyme act/vol 13 U/L Normal 7-38 [facility] Comment on above: Performed By: #### C BCDIF, PT, PTT, CMP #### [facility] [address] [place] [address] Anion gap molar conc 10 mmol/L Normal 9-18 [facility] Comment on above: Performed By: #### C BCDIF, PT, PTT, CMP #### [facility] [address] [place] [address] AST enzyme act/vol 15 U/L Normal 13-35 [facility] Comment on above: Performed By: #### C BCDIF, PT, PTT, CMP #### [facility] [address] [place] [address] Bilirubin mass conc 0.4 mg/dL Normal 0.2-1.3 [facility] Comment on above: Performed By: #### C BCDIF, PT, PTT, CMP #### [facility] [address] [place] [address] Calcium mass conc 8.7 mg/dL Normal 8.5-10.2 [facility] Comment on above: Performed By: #### C BCDIF, PT, PTT, CMP #### [facility] [address] [place] [address] Chloride molar conc 101 mmol/L Normal 97-105 [facility] Comment on above: Performed By: #### C BCDIF, PT, PTT, CMP #### [facility] [address] CO2 molar conc 29 mmol/L Normal 22-30 [facility] Comment on above: Performed By: #### C BCDIF, PT, PTT, CMP #### [facility] [address] [address] Creatinine mass conc 0.66 mg/dL Normal 0.58-0.96 [facility] Comment on above: Performed By: #### C BCDIF, PT, PTT, CMP #### [facility] [address] [address] eGFR- Amer. >60 Normal [facility] Comment on above: Performed By: #### C BCDIF, PT, PTT, CMP #### [facility] [address] [place] [address] GFR/1.73 sq M predicted among non-blacks MDRD vol rate/area (S/P/Bld) mL/min/{1.73_m2} Normal [facility] Comment on above: Result Comment: eGFR [...] #### C BCDIF, PT, PTT, CMP #### [facility] [address] [phone] Glucose mass conc 88 mg/dL Normal 74-99 [facility] Comment on above: Result Comment: The [place] Diabetes Association (ADA) provides guidance for cutoff [...] Standards of Medical Care in Diabetes 2016, [employer] Diabetes Association. Diabetes Care. 2016.39(Suppl 1). Performed By: #### C BCDIF, PT, PTT, CMP #### [facility] [address] [place] [address] Potassium molar conc 4.1 mmol/L Normal 3.7-5.1 [facility] Comment on above: Performed By: #### C BCDIF, PT, PTT, CMP #### [facility] [address] [place] [address] Protein mass conc 5.9 g/dL Low 6.3-8.0 [facility] Comment on above: Performed By: #### C BCDIF, PT, PTT, CMP #### [facility] [address] [place] [address] Sodium molar conc 140 mmol/L Normal 136-144 [facility] Comment on above: Performed By: #### C BCDIF, PT, PTT, CMP #### [facility] [address] [place] [address] Urea nitrogen mass conc 12 mg/dL Normal 7-21 [facility] Comment on above: Performed By: #### C BCDIF, PT, PTT, CMP #### [facility] [address] [place] [address] Magnesiumon 12-04-2017 Magnesium mass conc 1.8 mg/dL Normal 1.7-2.3 [facility] Comment on above: Performed By: #### C BCDIF, PT, PTT, CMP #### [facility] [address] [place] [address] NURSING PROGon 12-04-2017 Protein mass conc HNO ID: [id number] Author: Patricio (Rn) CHAYITO Tate Service: Nursing Author Type: Registered Nurse Type: Nursing Progress Note Filed: 12/04/2017 10:43 PM Note Text: Nursing Progress Note Patient Name: Trenton Jackson Patient Location: [facility] [id number] Daily Note: 1900: Assumed care of pt. [...] note was completed by: Patricio Tate RN [facility] Protein mass conc HNO ID: [id number] Author: Melissa AgudeloRn) CHAYITO Jeffries Service: Nursing Author Type: Registered Nurse Type: Nursing Progress Note Filed: 12/04/2017 3:11 PM Note Text: Nursing Progress Note Patient Name: Trenton Jackson Patient Location: CT Assistant Manager Airside Operations/CT Assistant Manager [employer]side Operations 1500 Final air removed from right radial site. No bleeding noted. Bandaid applied. Report called to Jazzmine STRATTON on 3S. Pt transferred to floor on bed accomp by staff in stable cond. This note was completed by: Melissa Jeffries RN [facility] Protein mass conc HNO ID: [id number] Author: Brett AgudeloRn) CHAYITO Castorena Service: Nursing Author Type: Registered Nurse Type: Nursing Progress Note Filed: 12/04/2017 2:18 PM Note Text: Pt eating and drinking denies any complaints at this time. @1417 Report to Melissa STRATTON. [facility] Protein mass conc HNO ID: [id number] Author: Jazzmine Solano) CHAYITO Galvan Service: Nursing Author Type: Registered Nurse Type: Nursing Progress Note Filed: 12/04/2017 6:40 PM Note Text: Nursing Progress Note Patient Name: Trenton Jackson Patient Location: CT Assistant Manager Airside Operations/CT Assistant Manager Airside Operations Daily Note: 0730: Assumed care of pt. [...] was completed by: Jazzmine Galvan RN Normal [facility] PROCEDUREon 12-04-2017 Protein mass conc HNO ID: [id number] Author: Jevon Sherman Service: Clinical Cardiology Author Type: Physician Type: Procedures Filed: 12/10/2017 1:25 AM Note Text: [facility]- Cardiac Catheterization TRENTON JACKSON : 1970 AGE: 47 SEX: F ACCTNUM: [id number] [place] [facility] [place] [facility] LOCATION: [address] ATTENDING PHYSICIAN: DEX HANDY SURGEON: Jevon Sherman [...] PROCEDURE: The patient was brought to the woodworking shop laborer, and she had mild chest pain at [...] sheath, and this was upsized to a 5-Yoruba short sheath. We then advanced a [place] catheter over a Wholey wire to the [...] 5. The patient will be transferred to [facility] for assessment of myocardial viability and consideration of revascularization of the LAD possibly with bypass grafting. Jevon Sherman M.D. Cardiovascular Medicine [id number] [facility] PROGRESSon 12-04-2017 Protein mass conc HNO ID: [id number] Author: Jevon Sherman Service: Clinical Cardiology Author [...] TIME: 11:14 AM The following are the [facility] Criteria for High Risk Catheterization: Patients with high-risk conditions listed above may require emergency catheter-based therapeutic interventions or open heart surgery. Hence, they shall undergo cardiac catheterization only in a catheterization laboratory that has open heart surgical support available on-site, (i.e., accessible from the catheterization laboratory or by [facility]). [facility] CASE MANAGEMon 12-03-2017 CASE MANAGEM HNO ID: [id number] Author: Iqra Solano) CHAYITO Webster Service: Case [...] 03, 2017 TIME: 11:44 AM PAGER/CONTACT #: [phone] [facility] CBCon 12-03-2017 Erythrocyte distribution width Ratio (RBC) 13.2 % Normal 11.5-15.0 [facility] Comment on above: Performed By: #### C BCDIF, PT, PTT, CMP #### [facility] [address] [place] [address] Hematocrit Volume Fraction (Bld) 46.0 % Normal 36.0-46.0 [facility] Comment on above: Performed By: #### C BCDIF, PT, PTT, CMP #### [facility] [address] [address] Hemoglobin mass conc (Bld) 15.3 g/dL Normal 11.5-15.5 [facility] Comment on above: Performed By: #### C BCDIF, PT, PTT, CMP #### [facility] [address] [place] [address] MCH Entitic mass (RBC) 27.4 pG Normal 26.0-34.0 [facility] Comment on above: Performed By: #### C BCDIF, PT, PTT, CMP #### [facility] [address] [place] [address] MCHC mass conc (RBC) 33.3 g/dL Normal 30.5-36.0 [facility] Comment on above: Performed By: #### C BCDIF, PT, PTT, CMP #### [facility] [address] [place] [address] MCV Entitic volume (RBC) 82.4 fL Normal 80.0-100.0 [facility] Comment on above: Performed By: #### C BCDIF, PT, PTT, CMP #### [facility] [address] [place] [address] Platelet mean volume Entitic volume (Bld) 10.1 fL Normal 9.0-12.7 [facility] Comment on above: Performed By: #### C BCDIF, PT, PTT, CMP #### [facility] [address] [place] [address] Platelets #/vol (Bld) 224 10*3/uL Normal 150-400 [facility] Comment on above: Performed By: #### C BCDIF, PT, PTT, CMP #### [facility] [address] [place] [address] RBC #/vol (Bld) 5.58 10*6/uL High 3.90-5.20 [facility] Comment on above: Performed By: #### C BCDIF, PT, PTT, CMP #### [facility] [address] [phone] WBC #/vol (Bld) 9.13 10*3/uL Normal 3.70-11.00 [facility] Comment on above: Performed By: #### C BCDIF, PT, PTT, CMP #### [facility] [address] [phone] CONSULT PROGon 12-03-2017 Protein mass conc HNO ID: [id number] Author: Jevon Sherman Service: Clinical Cardiology Author [...] 2017 TIME: 5:25 PM PAGER/CONTACT #: Normal [facility] Comp Metabolic Panelon 12-03 Albumin mass conc 3.3 g/dL Low 3.9-4.9 [facility] Comment on above: Performed By: #### C BCDIF, PT, PTT, CMP #### [facility] [address] [place] [address] ALP enzyme act/vol 83 U/L Normal 32-117 [facility] Comment on above: Performed By: #### C BCDIF, PT, PTT, CMP #### [facility] [address] [place] [address] ALT enzyme act/vol 13 U/L Normal 7-38 [facility] Comment on above: Performed By: #### C BCDIF, PT, PTT, CMP #### [facility] [address] [place] [address] Anion gap molar conc 10 mmol/L Normal 9-18 [facility] Comment on above: Performed By: #### C BCDIF, PT, PTT, CMP #### [facility] [address] [place] [address] AST enzyme act/vol 15 U/L Normal 13-35 [facility] Comment on above: Performed By: #### C BCDIF, PT, PTT, CMP #### [facility] [address] [place] [address] Bilirubin mass conc 0.5 mg/dL Normal 0.2-1.3 [facility] Comment on above: Performed By: #### C BCDIF, PT, PTT, CMP #### [facility] [address] [place] [address] Calcium mass conc 9.0 mg/dL Normal 8.5-10.2 [facility] Comment on above: Performed By: #### C BCDIF, PT, PTT, CMP #### [facility] [address] [facility] [phone] Chloride molar conc 99 mmol/L Normal 97-105 [facility] Comment on above: Performed By: #### C BCDIF, PT, PTT, CMP #### [facility] [address] [facility] [phone] CO2 molar conc 30 mmol/L Normal 22-30 [facility] Comment on above: Performed By: #### C BCDIF, PT, PTT, CMP #### [facility] [address] [facility] [phone] Creatinine mass conc 0.70 mg/dL Normal 0.58-0.96 [facility] Comment on above: Performed By: #### C BCDIF, PT, PTT, CMP #### [facility] [address] [phone] eGFR- Amer. >60 Normal [facility] Comment on above: Performed By: #### C BCDIF, PT, PTT, CMP #### [facility] [address] [phone] GFR/1.73 sq M predicted among non-blacks MDRD vol rate/area (S/P/Bld) mL/min/{1.73_m2} Normal [facility] Comment on above: Result Comment: eGFR [...] #### C BCDIF, PT, PTT, CMP #### [facility] [address] [facility] [phone] Glucose mass conc 76 mg/dL Normal 74-99 [facility] Comment on above: Result Comment: The [place] Diabetes Association (ADA) provides guidance for cutoff [...] Standards of Medical Care in Diabetes 2016, [place] Diabetes Association. Diabetes Care. 2016.39(Suppl 1). Performed By: #### C BCDIF, PT, PTT, CMP #### [facility] [address] [place] [address] Potassium molar conc 4.3 mmol/L Normal 3.7-5.1 [facility] Comment on above: Performed By: #### C BCDIF, PT, PTT, CMP #### [facility] [address] [place] [address] Protein mass conc 6.0 g/dL Low 6.3-8.0 [facility] Comment on above: Performed By: #### C BCDIF, PT, PTT, CMP #### [facility] [address] [place] [address] Sodium molar conc 139 mmol/L Normal 136-144 [facility] Comment on above: Performed By: #### C BCDIF, PT, PTT, CMP #### [facility] [address] [place] [address] Urea nitrogen mass conc 11 mg/dL Normal 7-21 [facility] Comment on above: Performed By: #### C BCDIF, PT, PTT, CMP #### [facility] [address] [place], [place] [address] Magnesiumon 12-03-2017 Magnesium mass conc 1.8 mg/dL Normal 1.7-2.3 [facility] Comment on above: Performed By: #### C BCDIF, PT, PTT, CMP #### [facility] [address] [place], [place] [id number] [place] CARDIAC PERF STRESS/EXERC ISEon 12-03-2017 NM [...] 60 minutes later. See administered doses below. [facility] Date of service: 12/03/2017 11:12:42 AM [...] ST segment response. Stress complications: none. Final Prosthetics Lab Technician: JEREMIAS Transcribe Date/Time: Dec 03 2017 11:12A Dictated by : JEVON SHERMAN MD This examination was interpreted and the report reviewed and electronically signed by: JEVON SHERMAN MD on Dec 03 2017 5:11PM EST [id number] [facility] NUCLEAR STRESS LEXISCAN (CAR D)on 12-03-2017 NUCLEAR STRESS LEXISCAN (CARD) NAME : TRENTON JACKSON PID : [id number] : 1970 Gender : Female Race : ORD : [id number] Procedure Date : Dec 03 2017 12:15:58 Edit Date : Dec 17 2017 14:02:26 Conclusions:PLEASE REFER TO IMAGING SECTION IN [facility] FOR COMPLETE INTERPRETATION OF STRESS TEST [...] Protocol Test Reason : Chest Pain Location :[id number] Overread By : JEVON SHERMAN M.D. Edited By : Violet Mcnulty Referred By : , Acquired by : [facility] NUCLEAR STRESS TEST EXERCISE (CARD)on 12-03-2017 NUCLEAR STRESS TEST EXERCISE (CARD) NAME : TRENTON JACKSON PID : [id number] : 1970 Gender : Female Race : ORD : [id number] Procedure Date : Dec 03 2017 11:56:57 Edit Date : Dec 17 2017 14:02:19 Conclusions:PLEASE REFER TO IMAGING SECTION IN [facility] FOR COMPLETE INTERPRETATION OF STRESS TEST [...] Treadmill Test Reason : Chest Pain Location :[id number] Overread By : JEVON SHERMAN M.D. Edited By : Violet Mcnulty Referred By : , Acquired by : [facility] NURSING PROGon 12-03-2017 Protein mass conc HNO ID: [id number] Author: Barb AgudeloRn) CHAYITO Ramey Service: (none) Author Type: Registered Nurse Type: Nursing Progress Note Filed: 12/03/2017 9:59 PM Note Text: Nursing Progress Note Patient Name: Trenton Jackson Patient Location: CT4/[id number] Daily Note: 2155- Dr Nava updated on pt medication request and HS blood sugar. New orders received. This note was completed by: Barb Ramey RN [facility] Protein mass conc HNO ID: [id number] Author: Jazzmine (Rn) CHAYITO Galvan Service: Nursing Author Type: Registered Nurse Type: Nursing Progress Note Filed: 12/03/2017 6:59 PM Note Text: Nursing Progress Note Patient Name: Trenton Jackson Patient Location: [facility] [place]/[id number]- Daily Note: 0700: Assumed care of pt. [...] note was completed by: Jazzmine Galvan RN [facility] PROCEDUREon 12-03-2017 Protein mass conc HNO ID: [id number] Author: Jevon Sherman Service: Clinical Cardiology Author Type: Physician Type: Procedures Filed: 12/10/2017 1:16 AM Note Text: [facility]- Stress Test TRENTON JACKSON : 1970 AGE: 47 SEX: F ACCTNUM: [id number] [place] [facility] [place] [facility] LOCATION: [address] ATTENDING PHYSICIAN: Dex Fernandez M.D. DATE OF [...] nuclear imaging. Jevon Sherman M.D. Cardiovascular Medicine [id number] [facility] PROGRESSon 12-03-2017 Protein mass conc HNO ID: [id number] Author: Dex Farooq) Lizz Service: Hospital Medicine Author Type: Physician Type: Progress Notes Filed: 12/03/2017 9:03 PM Note Text: HOSPITAL MEDICINE PROGRESS NOTE Name: Trenton Jackson SERVICE DATE: 12/03/2017 SERVICE TIME: 8:36 PM LOCATION / ROOM: [place] [place] [id number]/YS-[id number] Hospital Medicine/Primary Attending: Dex Handy MD NIGHT COVERAGE BETWEEN 5.30P-7.30A Page 80551 ASSESSMENT AND PLAN Active Hospital Problems Diagnosis [...] might need to be transferred to [facility] for further work up - pending LV [...] December 03, 2017 TIME: 8:36 PM Normal [facility] Sed Rate Westergrenon 2017 Sed Rate Westergren Unable to assay. No specimen received. Normal 0-20 [facility] Comment on above: Performed By: #### C BCDIF, PT, PTT, CMP #### [facility] [address] [place] [address] C-Reactive Proteinon 018 CRP mass conc 0.2 mg/dL Normal <0.9 [facility] Comment on above: Performed By: #### C BCDIF, PT, PTT, CMP #### [facility] [address] [place] [address] CBCon 12-02-2017 Erythrocyte distribution width Ratio (RBC) 13.4 % Normal 11.5-15.0 [facility] Comment on above: Performed By: #### C BCDIF, PT, PTT, CMP #### [facility] [address] [place] [address] Hematocrit Volume Fraction (Bld) 48.7 % High 36.0-46.0 [facility] Comment on above: Performed By: #### C BCDIF, PT, PTT, CMP #### [facility] [address] [place] [address] Hemoglobin mass conc (Bld) 16.9 g/dL High 11.5-15.5 [facility] Comment on above: Performed By: #### C BCDIF, PT, PTT, CMP #### [facility] [address] [place] [address] MCH Entitic mass (RBC) 27.6 pG Normal 26.0-34.0 [facility] Comment on above: Performed By: #### C BCDIF, PT, PTT, CMP #### [facility] [address] [place] [address] MCHC mass conc (RBC) 34.7 g/dL Normal 30.5-36.0 [facility] Comment on above: Performed By: #### C BCDIF, PT, PTT, CMP #### [facility] [address] [place] [address] MCV Entitic volume (RBC) 79.4 fL Low 80.0-100.0 [facility] Comment on above: Performed By: #### C BCDIF, PT, PTT, CMP #### [facility] [address] [place] [address] Platelet mean volume Entitic volume (Bld) 10.7 fL Normal 9.0-12.7 [facility] Comment on above: Performed By: #### C BCDIF, PT, PTT, CMP #### [facility] [address] [place] [address] Platelets #/vol (Bld) 215 10*3/uL Normal 150-400 [facility] Comment on above: Performed By: #### C BCDIF, PT, PTT, CMP #### [facility] [address] [place] [address] RBC #/vol (Bld) 6.13 10*6/uL High 3.90-5.20 [facility] Comment on above: Performed By: #### C BCDIF, PT, PTT, CMP #### [facility] [address] [place] [address] WBC #/vol (Bld) 12.44 10*3/uL High 3.70-11.00 [facility] Comment on above: Performed By: #### C BCDIF, PT, PTT, CMP #### [facility] [address] [place] [address] CONSULT PROGon 12-02-2017 Protein mass conc HNO ID: [id number] Author: Jevon Sherman Service: Clinical Cardiology Author [...] 2017 TIME: 4:49 PM PAGER/CONTACT #: Normal [facility] Comp Metabolic Panelon 12-02 Albumin mass conc 3.2 g/dL Low 3.9-4.9 [facility] Comment on above: Performed By: #### C BCDIF, PT, PTT, CMP #### [facility] [address] [place] [address] ALP enzyme act/vol 92 U/L Normal 32-117 [facility] Comment on above: Performed By: #### C BCDIF, PT, PTT, CMP #### [facility] [address] [address] ALT enzyme act/vol 14 U/L Normal 7-38 [facility] Comment on above: Performed By: #### C BCDIF, PT, PTT, CMP #### [facility] [address] [place] [address] Anion gap molar conc 13 mmol/L Normal 9-18 [facility] Comment on above: Performed By: #### C BCDIF, PT, PTT, CMP #### [facility] [address] [place] [address] AST enzyme act/vol 23 U/L Normal 13-35 [facility] [facility] Comment on above: Result Comment: Resu lts may be falsely increased due to interference by hemolysis. Suggest reorder as clinically indicated. Performed By: #### C BCDIF, PT, PTT, CMP #### [facility] [address] [address] Bilirubin mass conc 0.7 mg/dL Normal 0.2-1.3 [facility] Comment on above: Performed By: #### C BCDIF, PT, PTT, CMP #### [facility] [address] Calcium mass conc 9.2 mg/dL Normal 8.5-10.2 [facility] Comment on above: Performed By: #### C BCDIF, PT, PTT, CMP #### [facility] [address] Chloride molar conc 99 mmol/L Normal 97-105 [facility] Comment on above: Performed By: #### C BCDIF, PT, PTT, CMP #### [facility] [address] CO2 molar conc 23 mmol/L Normal 22-30 [facility] Comment on above: Performed By: #### C BCDIF, PT, PTT, CMP #### [facility] [address] [address] Creatinine mass conc 0.61 mg/dL Normal 0.58-0.96 [facility] Comment on above: Performed By: #### C BCDIF, PT, PTT, CMP #### [facility] [address] [address] eGFR- Amer. >60 Normal [facility] Comment on above: Performed By: #### C BCDIF, PT, PTT, CMP #### [facility] [address] GFR/1.73 sq M predicted among non-blacks MDRD vol rate/area (S/P/Bld) mL/min/{1.73_m2} Normal [facility] Comment on above: Result Comment: eGFR [...] #### C BCDIF, PT, PTT, CMP #### [facility] [address] Glucose mass conc 185 mg/dL High 74-99 [facility] Comment on above: Result Comment: The [place] Diabetes Association (ADA) provides guidance for cutoff [...] Standards of Medical Care in Diabetes 2016, [place] Diabetes Association. Diabetes Care. 2016.39(Suppl 1). Performed By: #### C BCDIF, PT, PTT, CMP #### [facility] [address] [place] [address] Potassium molar conc 4.8 mmol/L Normal 3.7-5.1 [facility] Comment on above: Performed By: #### C BCDIF, PT, PTT, CMP #### [facility] [address] [place] [address] Protein mass conc 6.2 g/dL Low 6.3-8.0 [facility] Comment on above: Performed By: #### C BCDIF, PT, PTT, CMP #### [facility] [address] [place] [address] Sodium molar conc 135 mmol/L Low 136-144 [facility] Comment on above: Performed By: #### C BCDIF, PT, PTT, CMP #### [facility] [address] [place], [place] [id number] Urea nitrogen mass conc 8 mg/dL Normal 7-21 [facility] Comment on above: Performed By: #### C BCDIF, PT, PTT, CMP #### [facility] [address] [place], [place] [id number] Magnesiumon 12-02-2017 Magnesium mass conc 1.9 mg/dL Normal 1.7-2.3 [facility] Comment on above: Performed By: #### C BCDIF, PT, PTT, CMP #### [facility] 1000 [facility] [phone] NURSING PROGon 12-02-2017 Protein mass conc HNO ID: [id number] Author: Flora (Rn) CHAYITO Varela Service: (none) Author Type: Registered Nurse Type: Nursing Progress Note Filed: 12/03/2017 4:25 AM Note Text: Nursing Progress Note Patient Name: Trenton Jackson Patient Location: [facility] [place]/[id number] Daily Note:2009-Pt on phone, requesting pain med, [...] note was completed by: Flora Varela RN [facility] Protein mass conc HNO ID: [id number] Author: Sara AgudeloRn) CHAYITO Johnson Service: Nursing Author Type: Registered Nurse Type: Nursing Progress Note Filed: 12/02/2017 6:26 PM Note Text: Nursing Progress Note Patient Name: Trenton Jackson Patient Location: [facility] – [place]/[id number]- Daily Note:1555 - Assumed care of pt. [...] note was completed by: Sara Johnson RN [facility] Protein mass conc HNO ID: [id number] Author: Jonna AgudeloRn) CHAYITO Boothe Service: Nursing Author Type: Registered Nurse Type: Nursing Progress Note Filed: 12/02/2017 2:09 PM Note Text: Nursing Progress Note Patient Name: Trenton Jackson Patient Location: [facility]0304/[id number] Daily Note: 0715: Assumed care of patient. [...] note was completed by: Jonna Boothe RN [facility] Protein mass conc HNO ID: [id number] Author: Patricio Solano) CHAYITO Tate Service: Nursing Author Type: Registered Nurse Type: Nursing Progress Note Filed: 12/02/2017 4:59 AM Note Text: Nursing Progress Note Patient Name: Trenton Jackson Patient Location: [facility] – [place]0304/[id number] Event(s) / Intervention Note: The patient was [...] note was completed by: Patricio Tate RN [facility] PROGRESSon 12-02-2017 Protein mass conc HNO ID: [id number] Author: Lisa Bocanegra Service: Hospital Medicine Author [...] December 02, 2017 TIME: 1:07 PM PAGER: [phone] Normal [facility] Procalcitoninon 12-02-2017 Protein mass conc g/dL Normal <0.09 [facility] Comment on above: Result Comment: For a guided interpretation of test results, please visit the Change in Procalcitonin Calculator, [email or web address]. Performed By: #### C BCDIF, PT, PTT, CMP #### [facility] [address] [phone] Sed Rate Westergrenon 2017 Sed Rate Westergren Unable to assay. Spe cimen grossly hemolyzed. Specimen may have been stored or transported frozen. Normal 0-20 [facility] Comment on above: Result Comment: Acco unt Credited Called to [id number] 7.1.18 NB Performed By: #### C BCDIF, PT, PTT, CMP #### [facility] [address] [phone] [facility] HNO ID: [id number] Author: Bety Lozada (Rn) CHAYITO Dempsey Service: Case Management Author Type: Registered Nurse Type: Care Mgt Initial Assessment Filed: 12/01/2017 9:52 AM Note Text: CARE MANAGEMENT: ASSESSMENT AND DISCHARGE PLAN SERVICE DATE: 12/01/2017 SERVICE TIME: 9:48 AM PRIMARY CARE PHYSICIAN: Uziel Conteh MD Confirmed. Likes am any day for follow ups. 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 No SOCIAL: Living Arrangement: Home Lives With: Spouse and two children Financial Resources: Employed: [employer] Primary Contact: Extended Emergency Contact Information Primary Emergency Contact: Curry Jackson Jr Address: [address] [place] [address] [facility] Mobile Relation: Spouse Secondary Emergency Contact: Rebecca Dueñas Address: [place] [address] [facility] Relation: Mother Supportive: Yes Other Important Patient [...] 0 I feel financially burdened by my [id number] expenses for my prescription medication: Disagree somewhat - 0 Patient is categorized as low risk < 2 Are you interested in bedside delivery of your medications? Yes , uses [facility] [place] [facility] Concerns: In the Last Month, Have [...] 01, 2017 TIME: 9:48 AM PAGER/CONTACT #: [phone] [facility] CONSULTon 12-01-2017 CONSULT HNO ID: [id number] Author: Jevon Sherman Service: Clinical Cardiology Author [...] associated with exertion. In the ER at [facility] yesterday she had no ischemic changes on ECG, NSR, and negative Tn. She has a history of DM, is an active smoker, and had an abnormal echocardiogram last year showing LVEF 30% with an LAD territory wall motion abnormality with a dyskinetic apex. She has not seen a laundry housekeeping aide about this problem and was unaware of [...] 2017 TIME: 10:17 AM PAGER/CONTACT #: Normal [facility] Lipid Panel, [place] 12-01- 018 Cholesterol in HDL mass conc 31 mg/dL Low >39 [facility] Comment on above: Result Comment: 40-5 9 mg/dL, Acceptable >59 mg/dL, High: Negative risk factor for coronary heart disease <40 mg/dL, Low: Positive risk factor for coronary heart disease Performed By: #### C BCDIF, PT, PTT, CMP #### [facility] [address] [place], [place] [phone] Cholesterol in LDL mass conc 110 mg/dL High <100 [facility] Comment on above: Result Comment: <100 mg/dL, Optimal 100-129 mg/dL, Near optimal/above optimal 130-159 mg/dL, Borderline high 160-189 mg/dL, High >189 mg/dL, Very high Secondary prevention optimal LDL Cholesterol levels are recommended to be < 70 mg/dL Performed By: #### C BCDIF, PT, PTT, CMP #### [facility] [address] [place], [place] [phone] Cholesterol mass conc 177 mg/dL Normal <200 [facility] Comment on above: Result Comment: <200 mg/dL, Desirable 200-239 mg/dL, Borderline high >239 mg/dL, High Performed By: #### C BCDIF, PT, PTT, CMP #### [facility] [address] Fasting Time Unknown Normal [facility] Comment on above: Performed By: #### C BCDIF, PT, PTT, CMP #### [facility] [address] [place], [place] [phone] LDL:HDL Ratio 3.55 High <2.54 [facility] Comment on above: Result Comment: Refe rence: 1. National Cholesterol Education Program ATP III Guideline At-A-Glance Quick Desk Reference: National Heart, Lung, and Blood [place]. National Institutes of Health. 2001: NIH Publication No. 01-3305. 2. An International Atherosclerosis Society position paper: global recommendations for the management of dyslipidemia: executive summary, Atherosclerosis. 2014: 232(2):410-413. Performed By: #### C BCDIF, PT, PTT, CMP #### [facility] [address] [address] Non HDL Cholesterol 146 mg/dL High <130 [facility] Comment on above: Result Comment: <130 mg/dL, Optimal 130-159 mg/dL, Near optimal/above optimal 160-189 mg/dL, Borderline high 190-219 mg/dL, High >219 mg/dL, Very high Secondary prevention optimal non HDL Cholesterol levels are recommended to be < 100 mg/dL Performed By: #### C BCDIF, PT, PTT, CMP #### [facility] [address] [place] [address] TC:HDL Ratio 5.71 High <5.10 [facility] Comment on above: Performed By: #### C BCDIF, PT, PTT, CMP #### [facility] [address] [address] Triglyceride mass conc 179 mg/dL High <150 [facility] Comment on above: Result Comment: <150 mg/dL, Normal 150-199 mg/dL, Borderline high 200-499 mg/dL, High >499 mg/dL, Very high Performed By: #### C BCDIF, PT, PTT, CMP #### [facility] [address] [place] [address] VLDL Cholesterol 36 mg/dL High <30 [facility] Comment on above: Performed By: #### C BCDIF, PT, PTT, CMP #### [facility] [address] [place] [address] NURSING PROGon 12-01-2017 Protein mass conc HNO ID: [id number] Author: Patricio (Rn) CHAYITO Tate Service: Nursing Author Type: Registered Nurse Type: Nursing Progress Note Filed: 12/02/2017 6:32 AM Note Text: Nursing Progress Note Patient Name: Trenton Jackson Patient [facility]: [facility]4/[id number] Daily Note: 1915: Assumed care of pt. [...] observed sweating profusely. Glucose 84, normally 200's. [place] juice and johnson crackers given. Glucose up to 149. Pt feeling slightly better. Will continue to monitor. 0500: Pt observed sleeping. Unable to obtain oral or axillary temp to this point. Will obtain rectal temp. Call light within reach. This note was completed by: Patricio Tate RN [facility] Protein mass conc HNO ID: [id number] Author: Jonna (Rn) CHAYITO Boothe Service: Nursing Author Type: Registered Nurse Type: Nursing Progress Note Filed: 12/01/2017 5:58 PM Note Text: Nursing Progress Note Patient Name: Trenton Jackson Patient Location: CT4/[id number] Daily Note: 714: Assumed care of patient. [...] note was completed by: Jonna Boothe RN [facility] Protein mass conc HNO ID: [id number] Author: Patricio (Rn) CHAYITO Tate Service: Nursing Author Type: Registered Nurse Type: Nursing Progress Note Filed: 12/01/2017 5:01 AM Note Text: Nursing Progress Note Patient Name: Trenton Jackson Patient Location: [facility]0304/[id number] Daily Note: 2200: Assumed care of pt. [...] note was completed by: Patricio Tate RN [facility] PROGRESSon 12-01-2017 Protein mass conc HNO ID: [id number] Author: Lisa Bocanegra Service: Hospital Medicine Author [...] 11/30/176 -- 11/30/17 2200 pneumatic compression stockings (nd,oh) VTE Prophylaxis: VTE prophylaxis appropriate SIGNATURE: Lisa Bocanegra MD PATIENT NAME: Trenton Jackson DATE: December 01, 2017 TIME: 2:46 PM PAGER: [phone] Normal [facility] Troponin Ton 12-01-2017 Troponin T.cardiac mass conc ug/L Normal 0.000-0.[address] [place] [address] Comment on above: Performed By: #### T NT ####[facility] [address] [place] [phone] Troponin T.cardiac mass conc ug/L Normal 0.000-0.[address] [place] [address] Comment on above: Performed By: #### T NT ####[facility] [address] [place] [phone] APTTon 11-30-2017 aPTT Coag time (Bld) 26.7 s Normal 23.0-32.4 [facility] Comment on above: Result Comment: Unfr [...] laboratory APTT reagent in use throughout the [facility]. Performed By: #### C BCDIF, PT, PTT, CMP #### [facility] [address] [place] [address] CBC and Differentialon 11-30 Abs Baso 0.05 k/uL Normal <0.11 [facility] Comment on above: Performed By: #### C BCDIF, PT, PTT, CMP #### [facility] [address] [place] [address] Abs Wilkinson 0.56 k/uL Normal <0.87 [facility] Comment on above: Performed By: #### C BCDIF, PT, PTT, CMP #### [facility] [address] [place] [address] Abs Neut 5.45 k/uL Normal 1.45-7.50 [facility] Comment on above: Performed By: #### C BCDIF, PT, PTT, CMP #### [facility] [address] [place] [address] Basophils/100 WBC (Bld) 0.6 % Normal [facility] Comment on above: Performed By: #### C BCDIF, PT, PTT, CMP #### [facility] [address] [place] [address] Eosinophils #/vol (Bld) 0.13 10*3/uL Normal <0.46 [facility] Comment on above: Performed By: #### C BCDIF, PT, PTT, CMP #### [facility] [address] [place] [address] Eosinophils/100 WBC (Bld) 1.4 % Normal [facility] Comment on above: Performed By: #### C BCDIF, PT, PTT, CMP #### [facility] [address] [place] [address] Erythrocyte distribution width Ratio (RBC) 13.3 % Normal 11.5-15.0 [facility] Comment on above: Performed By: #### C BCDIF, PT, PTT, CMP #### [facility] [address] [place] [address] Hematocrit Volume Fraction (Bld) 46.8 % High 36.0-46.0 [facility] Comment on above: Performed By: #### C BCDIF, PT, PTT, CMP #### [facility] [address] [place] [address] Hemoglobin mass conc (Bld) 16.2 g/dL High 11.5-15.5 [facility] Comment on above: Performed By: #### C BCDIF, PT, PTT, CMP #### [facility] [address] [place] [address] Lymphocytes #/vol (Bld) 2.83 10*3/uL Normal 1.00-4.00 [facility] Comment on above: Performed By: #### C BCDIF, PT, PTT, CMP #### [facility] [address] Lymphocytes/100 WBC (Bld) 31.4 % Normal [facility] Comment on above: Performed By: #### C BCDIF, PT, PTT, CMP #### [facility] [address] [phone] MCH Entitic mass (RBC) 27.8 pG Normal 26.0-34.0 [facility] Comment on above: Performed By: #### C BCDIF, PT, PTT, CMP #### [facility] [address] [phone] MCHC mass conc (RBC) 34.6 g/dL Normal 30.5-36.0 [facility] Comment on above: Performed By: #### C BCDIF, PT, PTT, CMP #### [facility] [address] [address] MCV Entitic volume (RBC) 80.4 fL Normal 80.0-100.0 [facility] Comment on above: Performed By: #### C BCDIF, PT, PTT, CMP #### [facility] [address] [address] Monocytes/100 WBC (Bld) 6.2 % Normal [facility] Comment on above: Performed By: #### C BCDIF, PT, PTT, CMP #### [facility] [address] [phone] Neutrophils/100 WBC (Bld) 60.4 % Normal [facility] Comment on above: Performed By: #### C BCDIF, PT, PTT, CMP #### [facility] [address] Platelet mean volume Entitic volume (Bld) 9.9 fL Normal 9.0-12.7 [facility] Comment on above: Performed By: #### C BCDIF, PT, PTT, CMP #### [facility] [address] [phone] Platelets #/vol (Bld) 247 10*3/uL Normal 150-400 [facility] Comment on above: Performed By: #### C BCDIF, PT, PTT, CMP #### [facility] [address] [address] RBC #/vol (Bld) 5.82 10*6/uL High 3.90-5.20 [facility] Comment on above: Performed By: #### C BCDIF, PT, PTT, CMP #### [facility] [address] [address] WBC #/vol (Bld) 9.02 10*3/uL Normal 3.70-11.00 [facility] Comment on above: Performed By: #### C BCDIF, PT, PTT, CMP #### [facility] [address] [address] CK, Total and CKMBon 018 CK enzyme act/vol 41 U/L Low 42-196 [facility] Comment on above: Performed By: #### N TBNP, CKCKMB #### [facility] [address] [address] CK MB % CK MB % not reported with CK <100 U/L. Normal 0.0-4.0 [facility] Comment on above: Performed By: #### N TBNP, CKCKMB #### [facility] [address] [place] [address] MB 1.7 ng/mL Normal <4.3 [facility] Comment on above: Performed By: #### N TBNP, CKCKMB #### [facility] [address] [address] Comp Metabolic Panelon 11-30 Albumin mass conc 3.5 g/dL Low 3.9-4.9 [facility] Comment on above: Performed By: #### C BCDIF, PT, PTT, CMP #### [facility] [address] [address] ALP enzyme act/vol 97 U/L Normal 32-117 [facility] Comment on above: Performed By: #### C BCDIF, PT, PTT, CMP #### [facility] [address] [address] ALT enzyme act/vol 17 U/L Normal 7-38 [facility] Comment on above: Performed By: #### C BCDIF, PT, PTT, CMP #### [facility] [address] [address] Anion gap molar conc 12 mmol/L Normal 9-18 [facility] Comment on above: Performed By: #### C BCDIF, PT, PTT, CMP #### [facility] [address] [address] AST enzyme act/vol 26 U/L Normal 13-35 [facility] Comment on above: Performed By: #### C BCDIF, PT, PTT, CMP #### [facility] [address] [address] Bilirubin mass conc 0.7 mg/dL Normal 0.2-1.3 [facility] Comment on above: Performed By: #### C BCDIF, PT, PTT, CMP #### [facility] [address] [place] [address] Calcium mass conc 8.5 mg/dL Normal 8.5-10.2 [facility] Comment on above: Performed By: #### C BCDIF, PT, PTT, CMP #### [facility] [address] [place] [address] Chloride molar conc 102 mmol/L Normal 97-105 [facility] Comment on above: Performed By: #### C BCDIF, PT, PTT, CMP #### [facility] [address] [place] [address] CO2 molar conc 23 mmol/L Normal 22-30 [facility] Comment on above: Performed By: #### C BCDIF, PT, PTT, CMP #### [facility] [address] [place] [address] Creatinine mass conc 0.61 mg/dL Normal 0.58-0.96 [facility] Comment on above: Performed By: #### C BCDIF, PT, PTT, CMP #### [facility] [address] [place] [address] eGFR- Amer. >60 Normal [facility] Comment on above: Performed By: #### C BCDIF, PT, PTT, CMP #### [facility] [address] [place] [address] GFR/1.73 sq M predicted among non-blacks MDRD vol rate/area (S/P/Bld) mL/min/{1.73_m2} Normal [facility] Comment on above: Result Comment: eGFR [...] #### C BCDIF, PT, PTT, CMP #### [facility] [address] [place] [address] Glucose mass conc 260 mg/dL High 74-99 [facility] Comment on above: Result Comment: The [place] Diabetes Association (ADA) provides guidance for cutoff [...] Standards of Medical Care in Diabetes 2016, [place] Diabetes Association. Diabetes Care. 2016.39(Suppl 1). Performed By: #### C BCDIF, PT, PTT, CMP #### [facility] [address] [place] [address] Potassium molar conc 4.1 mmol/L Normal 3.7-5.1 [facility] Comment on above: Performed By: #### C BCDIF, PT, PTT, CMP #### [facility] [address] [place] [address] Protein mass conc 6.5 g/dL Normal 6.3-8.0 [facility] Comment on above: Performed By: #### C BCDIF, PT, PTT, CMP #### [facility] [address] [place] [address] Sodium molar conc 137 mmol/L Normal 136-144 [facility] Comment on above: Performed By: #### C BCDIF, PT, PTT, CMP #### [facility] [address] [phone] Urea nitrogen mass conc 5 mg/dL Low 7-21 [facility] Comment on above: Performed By: #### C BCDIF, PT, PTT, CMP #### [facility] [address] [phone] ED NOTEon 11-30-2017 ED NOTE HNO ID: [id number] Author: Sara AgudeloRn) CHAYITO Bryson Service: Nursing Author Type: Registered Nurse Type: ED Notes Filed: 11/30/2017 9:26 PM Note Text: Report called to Patricio on 3S [facility] ED NOTE HNO ID: [id number] Author: Sara AgudeloRn) Braydon, RN Service: Nursing Author Type: Registered Nurse Type: ED Notes Filed: 11/30/2017 7:18 PM Note Text: Pt reports no relief of chest pain with nitro. SBP 125 to 109. [facility] ED NOTE HNO ID: [id number] Author: Sara Solano) Braydon, RN Service: Nursing Author Type: Registered Nurse Type: ED Notes Filed: 11/30/2017 6:45 PM Note Text: Pt presents to the ER tearful about being scared of chest pain she is having. Onset was 0200 this a.m. She was seen at [facility] ER earlier today and advised to be admitted for observation. Pt states she wanted to drive herself in after settling family arrangements. She indicates mid-sternal pain that is stabbing, aching, sharp, dull, and pressure all at the same time. She was given 4 baby ASA and morphine at [facility], per pt. Medic at the bedside to lab and line. [facility] ED NOTE HNO ID: [id number] Author: Evelyne AgudeloRn) Vivien RN Service: (none) Author Type: Registered Nurse Type: ED Notes Filed: 11/30/2017 6:13 PM Note Text: Pt presents to ED with c/o chest pain. Pt explains she was seen at [facility] ED earlier today and Ed wanted to transfer her to [facility] for obs but refused at that time Normal [facility] ED PROV NOTEon 11-30-2017 Protein mass conc HNO ID: [id number] Author: Rafy Cavanaugh III Service: (none) Author Type: Physician Refrigerator Assembler Type: ED Provider Notes Filed: 11/30/2017 9:05 PM Note Text: ED Provider Note Patient Name: Trenton Jackson SERVICE DATE: 11/30/17 History Patient presents with: Chest Pain ca HPI: 47-year-old female with a history of diabetes, hyperlipidemia, hypertension, psychiatric disorder, diverticulitis, ejection fraction of 35 and 35% presents to the emergency department for evaluation of chest pain. The patient was in [facility] ED earlier and was seen and evaluated [...] Abs Lymph 2.83 1.00 - 4.00 k/uL Wilkinson% 6.2 % Abs Wilkinson 0.56 <0.87 k/uL Eosin% 1.4 % Abs [...] Other: No acute osseous abnormality is identified. Prosthetics Lab Technician: GEORGE Transcribe Date/Time: Nov 30 2017 7:15P Dictated by : BRAD BALKE MD This examination was interpreted and the [...] of the patient and have reviewed the PA/SLIDE DEVELOPER note. My jones findings include: History - Ms. Jackson is a 47 yo F w/ h/o HTN and hyperlipidemia and DM and smoking, likely DC (EF lower and ? Dyskinesis in LAD) w/out rx previously, now here w/ chest pain/dyspnea/LH/nausea, intermittently sweaty, nearly 24 hrs now. Went to [facility] trop initially ok, ECG NSST changes, advised [...] 7:05 PM Rafy Cavanaugh III 11/30/172104 [facility] HISTORY PHYSICALon HISTORY PHYSICAL HNO ID: [id number] Author: Fercho Osborne Service: Hospital Medicine Author Type: Physician Type: HANDP Filed: 11/30/2017 10:37 PM Note Text: DEPARTMENT OF HOSPITAL MEDICINE HISTORY AND PHYSICAL EXAM SERVICE DATE: 11/30/2017 SERVICE TIME: 9:48 PM Primary Care Physician: Uziel Conteh MD NIGHT AND WEEKEND COVERAGE: Nights: Please contact pager [phone]. Subjective HPI 47 Y F with PMH of diabetes, hyperlipidemia, hypertension, anxiety, depression, H/O pericardial effusion, systolic dysfunction, EF of 35 and 35% in 03/20, presents to the ED for evaluation of chest pain. The patient was seen in [facility] ED earlier today and they wanted to [...] CXR unremarkable Never Had stress test or [facility] Had abnormal ECHO in mar 2017 [...] 30, 2017 TIME: 9:48 PM PAGER/CONTACT #: [phone] Normal [facility] HOSPon 11-30-2017 HOSP Patient:Olamide Jackson MRN: [...] pain. Pt explains she was seen at [facility] ED earlier today and Ed wanted to transfer her to [facility] for obs but refused at that time [...] of chest pain. The patient was in [facility] ED earlier and was seen and evaluated [...] Abs Lymph 2.83 1.00 - 4.00 k/uL Wilkinson% 6.2 % Abs Wilkinson 0.56 <0.87 k/uL Eosin% 1.4 % Abs [...] Other: No acute osseous abnormality is identified. Prosthetics Lab Technician: [facility] Transcribe Date/Time: Nov 30 2017 7:15P [...] of the patient and have reviewed the PA/SLIDE DEVELOPER note. My jones findings include: History - Ms. Jackson is a 47 yo F w/ h/o HTN and hyperlipidemia and DM and smoking, likely DC (EF lower and ? Dyskinesis in LAD) w/out rx previously, now here w/ chest pain/dyspnea/LH/nausea, intermittently sweaty, nearly 24 hrs now. Went to [facility] trop initially ok, ECG NSST changes, advised [...] Jarrett MD Date: 11/30/2017 Time: 7:05 PM aRfy Rashid (Lauren) Mao ROBLEDO 11/30/172104 Previous Version Sara Bryson, RN, RN 11/30/2017 6:45 PM Signed Pt presents to the ER tearful about being scared of chest pain she is having. Onset was 0200 this a.m. She was seen at [facility] ER earlier today and advised to be admitted for observation. Pt states she wanted to drive herself in after settling family arrangements. She indicates mid-sternal pain that is stabbing, aching, sharp, dull, and pressure all at the same time. She was given 4 baby ASA and morphine at [facility], per pt. Medic at the bedside to [...] AND WEEKEND COVERAGE: Nights: Please contact pager [phone]. Subjective HPI 47 Y F with PMH of diabetes, hyperlipidemia, hypertension, anxiety, depression, H/O pericardial effusion, systolic dysfunction, EF of 35 and 35% in 03/20, presents to the ED for evaluation of chest pain. The patient was seen in [facility] ED earlier today and they wanted to [...] CXR unremarkable Never Had stress test or [facility] Had abnormal ECHO in mar 2017 [...] 30, 2017 TIME: 9:48 PM PAGER/CONTACT #: [phone] Patricio Tate, RN, RN 12/01/2017 5:01 AM Addendum Nursing Progress Note Patient Name: Trenton Jackson Patient Location: [facility] [place]-0304/[id number] Daily Note: 2200: Assumed care of pt. [...] Patient Name: Trenton Jackson [facility]4/[id number] Daily Note: 0715: Assumed care of patient. 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 No SOCIAL: Living Arrangement: Home Lives With: Spouse and two children Financial Resources: Employed: [employer] Primary Contact: Extended Emergency Contact Information Primary Emergency Contact: Curry Jackson Jr Address: [address] [place] [address] [facility] Mobile Relation: Spouse Secondary Emergency Contact: Rebecca Dueñas Address: [place] [address] [facility] Relation: Mother Supportive: Yes Other Important Patient [...] 0 I feel financially burdened by my ric-kz-[id number] expenses for my prescription medication: Disagree somewhat - 0 Patient is categorized as low risk < 2 Are you interested in bedside delivery of your medications? Yes , uses [facility] [place] [facility] Concerns: In the Last Month, Have [...] 01, 2017 TIME: 9:48 AM PAGER/CONTACT #: [phone] Jevon Sherman MD 12/01/2017 10:32 AM Signed [...] associated with exertion. In the ER at [facility] yesterday she had no ischemic changes on ECG, NSR, and negative Tn. She has a history of DM, is an active smoker, and had an abnormal echocardiogram last year showing LVEF 30% with an LAD territory wall motion abnormality with a dyskinetic apex. 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 [...] observed sweating profusely. Glucose 84, normally 200's. [place] juice and johnson crackers given. Glucose up [...] Patient Name: Trenton Jackson Patient Location: [facility]4/[id number] Event(s) / Intervention Note: The patient was [...] Patient Name: Trenton Jackson Patient Location: [facility]4/PV-[id number] Daily Note: 0715: Assumed care of patient. [...] December 02, 2017 TIME: 1:07 PM PAGER: [phone] Previous Version Sara Johnson, RN, RN 12/02/2017 6:26 PM Addendum Nursing Progress Note Patient Name: Trenton Jackson Patient Location: [place] [address]584/[id number] Daily Note:1555 - Assumed care of pt. [...] Note Patient Name: Trenton Jackson Patient Location: [facility] – [place]/PG-[id number]- Daily Note:2009-Pt on phone, requesting pain med, [...] CHAYITO López MD 12/03/2017 8:34 PM Unsigned [facility]- Stress Test TRENTON JACKSON : 1970 AGE: 47 SEX: F ACCTNUM: [id number] [facility]: [facility] LOCATION: [address] ATTENDING PHYSICIAN: Dex Fernandez M.D. DATE OF [...] nuclear imaging. Jevon Sherman M.D. Cardiovascular Medicine [id number] /[id number] Jazzmine Galvan RN, RN 12/03/2017 6:59 PM Addendum Nursing Progress Note Patient Name: Trenton Jackson Patient Location: [place] [address]/[id number] Daily Note: 0700: Assumed care of pt. [...] 03, 2017 TIME: 11:44 AM PAGER/CONTACT #: [phone] Jevon Sherman MD 12/03/2017 5:30 PM Signed [...] 12/03/17 0605 12/02/17 0724 12/01/17 0755 11/30/17 2425 CK -- -- -- -- -- 41* [...] SERVICE TIME: 8:36 PM LOCATION / ROOM: [place] [address]/[id number] Hospital Medicine/Primary Attending: Dex Handy MD NIGHT COVERAGE BETWEEN 5.30P-7.30A Page [phone] ASSESSMENT AND PLAN Active Hospital Problems Diagnosis [...] Patient might need to be transferred to [facility] for further work up - pending LV [...] Note Patient Name: Trenton Jackson Patient Location: [address]- Daily Note: 2155- Dr Nava updated [...] TIME: 11:14 AM The following are the [facility] Criteria for High Risk Catheterization: Patients with high-risk conditions listed above may require emergency catheter-based therapeutic interventions or open heart surgery. Hence, they shall undergo cardiac catheterization only in a catheterization laboratory that has open heart surgical support available on-site, (i.e., accessible from the catheterization laboratory or by [facility]). Progress Notes (INTM AG LODI ): Bhumi Junior LPN 11/23/2017 9:11 AM Signed Message left on pt's voicemail following up on ER visit 11/20/17. Requested return call for update, to schedule appt, if pt desires. Bhumi Junior LPN Normal [facility] High Sens Troponin Ton 11-30 High Sensitivity THEO 9 ng/L Normal <12 [facility] Comment on above: Result Comment: When [...] day MACE. Performed By: #### H STNT ####[facility] [address] [place], [place] [phone] High Sensitivity THEO 10 ng/L Normal <12 [facility] Comment on above: Result Comment: When [...] MACE. Performed By: #### H STNT #### [facility] [address] [place] [address] NT Pro BNPon 11-30-2017 Protein mass conc 517 pg/mL High <125 [facility] Comment on above: Performed By: #### N TBNP, CKCKMB #### [facility] [address] [facility] [phone] Protimeon 11-30-2017 Prothrombin time (PT) Coag time (PPP) 10.2 s Normal 9.7-13.0 [facility] Comment on above: Performed By: #### C BCDIF, PT, PTT, CMP #### [facility] [address] [facility] [phone] Prothrombin time (PT) Coag time (PPP) 1.0 s Normal 0.9-1.3 [facility] Comment on above: Result Comment: Charissa min K Antagonist (VKA) Therapeutic Range: INR 2 to 3 (Target INR of 2.5) Note: For patients treated with VKA drugs, such as warfarin, the [employer] 2012 Guideline recommends [...] Chest 2012, 141:7S-47S Sampson SOMMERS, et al. [facility] 2017, 70: 252-289 Performed By: #### C BCDIF, PT, PTT, CMP #### [facility] [address] [facility] [phone] XR CHEST 1V FRONTAL PORTon 0 11-30-2017 [...] Other: No acute osseous abnormality is identified. Prosthetics Lab Technician: [facility] Transcribe Date/Time: Nov 30 2017 7:15P Dictated by : BRAD BLAKE MD This examination was interpreted and the report reviewed and electronically signed by: BRAD BLAKE MD on Nov 30 2017 7:16PM EST [id number] Normal [facility] Influenza virus A and B and SARS-CoV-2 (COVID-19) Ag panel - Upper respiratory specim SARS-CoV-2 & FLU Antigen (Rapid) Influenzae A [facility] Work Phone: Vital Signs Date Time Vital Sign Value Performing Clinician Facility 12-12-2024 18:17-0400 Body temperature 98.5 [degF] Zohreh Mckeon [facility] Work Phone: 9(128)023-805015 [place] [address] 12-12-2024 18:17-0400 Diastolic blood pressure 91 mm[Hg] Zohreh Mckeon [facility] Work Phone: 1(054)247-413115 [place] [address] 12-12-2024 18:17-0400 Heart rate 97 /min Zohreh Mckeon [facility] Work Phone: 0(957)831-336450 [place] [address] 12-12-2024 18:17-0400 Respiratory rate 18 /min Zohreh Mckeon [facility] Work Phone: 4(328)394-486015 [place] [address] 12-12-2024 18:17-0400 SaO2% (BldA) [Mass fraction] 98 % Zohreh Mckeon [facility] Work Phone: 2(610)915-044115 [place] [address] 12-12-2024 18:17-0400 Systolic blood pressure 152 mm[Hg] Zohreh Mckeon [facility] Work Phone: 5(746)115-392550 [place] [address] 12-12-2024 13:08-0400 Body height 167.64 cm Zohreh Mckeon [facility] Work Phone: 2(210)990-853115 [place] [address] 09-29-2024 16:59-0400 Body temperature 97.7 [degF] [facility] Work Phone: 4(287)372-257115 [place] [address] 09-29-2024 16:59-0400 Diastolic blood pressure 80 mm[Hg] [facility] Work Phone: 5(306)851-814050 [place] [address] 09-29-2024 16:59-0400 Heart rate 133 /min [facility] Work Phone: 1(753)772-283115 [place] [address] 09-29-2024 16:59-0400 Respiratory rate 15 /min [facility] Work Phone: 6(603)309-124015 [place] [address] 09-29-2024 16:59-0400 SaO2% (BldA) [Mass fraction] 95 % [facility] Work Phone: 0(021)002-821850 [place] [address] 09-29-2024 16:59-0400 Systolic blood pressure 149 mm[Hg] [facility] Work Phone: 6(906)999-740150 [place] [address] 09-29-2024 10:16-0400 Body height 170.18 cm [facility] Work Phone: 6(632)703-656850 [place] [address] 09-29-2024 10:16-0400 Body mass index (BMI) [Ratio] 28 kg/m2 [facility] Work Phone: 3(578)988-716550 [place] [address] 09-29-2024 10:16-0400 Body weight 81.4 kg [facility] Work Phone: 7(412)698-343350 [place] [address] 09-21-2024 17:11-0400 Body temperature 97.9 [degF] [facility] Work Phone: 4(814)986-951450 [place] [address] 09-21-2024 17:11-0400 Diastolic blood pressure 102 mm[Hg] [facility] Work Phone: 4(078)008-895750 [place] [address] 09-21-2024 17:11-0400 Heart rate 110 /min [facility] Work Phone: 9(816)797-868250 [place] [address] 09-21-2024 17:11-0400 Respiratory rate 16 /min [facility] Work Phone: 7(016)471-567650 [place] [address] 09-21-2024 17:11-0400 SaO2% (BldA) [Mass fraction] 98 % [facility] Work Phone: 7(189)910-455650 [place] [address] 09-21-2024 17:11-0400 Systolic blood pressure 139 mm[Hg] [facility] Work Phone: 4(650)277-352650 [place] [address] 09-21-2024 12:16-0400 Body height 170.18 cm [facility] Work Phone: 3(259)525-029950 [place] [address] 09-21-2024 12:16-0400 Body mass index (BMI) [Ratio] 28.4 kg/m2 [facility] Work Phone: 1(457)659-285750 [place] [address] 09-21-2024 12:16-0400 Body weight 82.3 kg [facility] Work Phone: 7(968)098-658850 [place] [address] 09-16-2024 15:35-0400 Diastolic blood pressure 94 mm[Hg] [facility] Work Phone: 3(876)896-893550 [place] [address] 09-16-2024 15:35-0400 Heart rate 110 /min [facility] Work Phone: 9(077)425-853850 [place] [address] 09-16-2024 15:35-0400 SaO2% (BldA) [Mass fraction] 98 % [facility] Work Phone: 1(793)489-548050 [place] [address] 09-16-2024 15:35-0400 Systolic blood pressure 160 mm[Hg] [facility] Work Phone: 4(786)086-933750 [place] [address] 09-16-2024 14:31-0400 Body temperature 97.2 [degF] [facility] Work Phone: 3(261)526-707550 [place] [address] 09-16-2024 14:31-0400 Respiratory rate 18 /min [facility] Work Phone: 1(820)156-713950 [place] [address] 09-16-2024 03:10-0400 Body mass index (BMI) [Ratio] 28.7 kg/m2 [facility] Work Phone: 6(864)082-636150 [place] [address] 09-16-2024 03:10-0400 Body weight 83.1 kg [facility] Work Phone: 2(448)117-696550 [place] [address] 09-11-2024 10:56-0400 Body height 170.18 cm [facility] Work Phone: 0(571)022-418150 [place] [address] 09-07-2024 21:00-0400 Diastolic blood pressure 79 mm[Hg] [facility] Work Phone: 9(975)364-954550 [place] [address] 09-07-2024 21:00-0400 Heart rate 101 /min [facility] Work Phone: 6(205)189-165550 [place] [address] 09-07-2024 21:00-0400 Respiratory rate 10 /min [facility] Work Phone: 6(594)210-693550 [place] [address] 09-07-2024 21:00-0400 SaO2% (BldA) [Mass fraction] 99 % [facility] Work Phone: 6(911)177-471450 [place] [address] 09-07-2024 21:00-0400 Systolic blood pressure 143 mm[Hg] [facility] Work Phone: 4(748)537-737850 [place] [address] 09-07-2024 15:52-0400 Body height 170.18 cm [facility] Work Phone: 5(864)533-031250 [place] [address] 09-07-2024 15:52-0400 Body mass index (BMI) [Ratio] 26.9 kg/m2 [facility] Work Phone: 4(534)602-892850 [place] [address] 09-07-2024 15:52-0400 Body temperature 97.4 [degF] [facility] Work Phone: 8(568)601-589750 [place] [address] 09-07-2024 15:52-0400 Body weight 77.9 kg [facility] Work Phone: 1(977)621-867350 [place] [address] 09-05-2024 15:24-0400 Body temperature 97.7 [degF] [facility] Work Phone: 1(980)487-944250 [place] [address] 09-05-2024 15:24-0400 Diastolic blood pressure 62 mm[Hg] [facility] Work Phone: 4(617)872-050950 [place] [address] 09-05-2024 15:24-0400 Heart rate 90 /min [facility] Work Phone: 9(835)492-431650 [place] [address] 09-05-2024 15:24-0400 Respiratory rate 15 /min [facility] Work Phone: 4(616)995-581150 [place] [address] 09-05-2024 15:24-0400 SaO2% (BldA) [Mass fraction] 96 % [facility] Work Phone: 2(083)094-783750 [place] [address] 09-05-2024 15:24-0400 Systolic blood pressure 100 mm[Hg] [facility] Work Phone: 6(331)166-738350 [place] [address] 09-05-2024 10:29-0400 Body height 170.18 cm [facility] Work Phone: 1(856)232-796150 [place] [address] 09-05-2024 10:29-0400 Body mass index (BMI) [Ratio] 27.2 kg/m2 [facility] Work Phone: 2(007)713-991450 [place] [address] 09-05-2024 10:29-0400 Body weight 78.9 kg [facility] Work Phone: 2(003)931-987050 [place] [address] 09-02-2024 12:46-0400 Body temperature 98 [degF] [facility] Work Phone: 7(276)106-029350 [place] [address] 09-02-2024 12:46-0400 Diastolic blood pressure 78 mm[Hg] [facility] Work Phone: 4(396)933-060650 [place] [address] 09-02-2024 12:46-0400 Heart rate 60 /min [facility] Work Phone: 8(189)244-304550 [place] [address] 09-02-2024 12:46-0400 Respiratory rate 13 /min [facility] Work Phone: 9(713)198-437450 [place] [address] 09-02-2024 12:46-0400 SaO2% (BldA) [Mass fraction] 95 % [facility] Work Phone: 8(049)322-708450 [place] [address] 09-02-2024 12:46-0400 Systolic blood pressure 112 mm[Hg] [facility] Work Phone: 2(508)020-994150 [place] [address] 09-02-2024 12:00-0400 Heart rate 96 /min [facility] Work Phone: 3(638)562-469050 [place] [address] 09-02-2024 12:00-0400 Respiratory rate 17 /min [facility] Work Phone: 4(281)602-231250 [place] [address] 09-02-2024 12:00-0400 SaO2% (BldA) [Mass fraction] 97 % [facility] Work Phone: 0(248)945-629650 [place] [address] 09-02-2024 12:00-0400 Systolic blood pressure 144 mm[Hg] [facility] Work Phone: 9(811)559-187150 [place] [address] 09-02-2024 06:00-0400 Body mass index (BMI) [Ratio] 27.7 kg/m2 [facility] Work Phone: 1(065)861-518250 [place] [address] 09-02-2024 06:00-0400 Body weight 80.1 kg [facility] Work Phone: 5(318)868-885050 [place] [address] 08-30-2024 15:46-0400 Body height 170.18 cm [facility] Work Phone: 5(347)061-961150 [place] [address] 08-26-2024 20:00-0400 Diastolic blood pressure 69 mm[Hg] [facility] Work Phone: 9(357)377-702150 [place] [address] 08-26-2024 20:00-0400 Heart rate 98 /min [facility] Work Phone: 7(529)345-628150 [place] [address] 08-26-2024 20:00-0400 Systolic blood pressure 129 mm[Hg] [facility] Work Phone: 7(202)338-036850 [place] [address] 08-26-2024 19:09-0400 Body temperature 98 [degF] [facility] Work Phone: 4(011)098-428850 [place] [address] 08-26-2024 19:09-0400 Respiratory rate 16 /min [facility] Work Phone: 7(922)508-155850 [place] [address] 08-26-2024 19:09-0400 SaO2% (BldA) [Mass fraction] 97 % [facility] Work Phone: 6(446)251-009950 [place] [address] 08-26-2024 10:08-0400 Body height 170.18 cm [facility] Work Phone: 2(468)551-642750 [place] [address] 08-26-2024 10:08-0400 Body mass index (BMI) [Ratio] 28.8 kg/m2 [facility] Work Phone: 1(988)458-782050 [place] [address] 08-26-2024 10:08-0400 Body weight 83.6 kg [facility] Work Phone: 9(984)866-265650 [place] [address] 08-01-2024 20:58-0500 Heart rate 101 /min [facility] Work Phone: 8(607)463-035150 [place] [address] 08-01-2024 20:58-0500 Respiratory rate 22 /min [facility] Work Phone: 7(218)225-812450 [place] [address] 08-01-2024 20:58-0500 SaO2% (BldA) [Mass fraction] 99 % [facility] Work Phone: 9(210)666-846750 [place] [address] 08-01-2024 19:00-0500 Diastolic blood pressure 76 mm[Hg] [facility] Work Phone: 7(680)370-618250 [place] [address] 08-01-2024 19:00-0500 Systolic blood pressure 134 mm[Hg] [facility] Work Phone: 8(485)555-522350 [place] [address] 08-01-2024 17:00-0500 Body temperature 98.4 [degF] [facility] Work Phone: 6(352)645-303850 [place] [address] 08-01-2024 13:46-0500 Body mass index (BMI) [Ratio] 27.9 kg/m2 [facility] Work Phone: 3(716)456-285150 [place] [address] 08-01-2024 13:46-0500 Body weight 80.9 kg [facility] Work Phone: 1(519)931-475750 [place] [address] 07-11-2024 12:40-0500 Body mass index (BMI) [Ratio] 26.6 kg/m2 [facility] Work Phone: 4(482)292-891650 [place] [address] 07-11-2024 12:40-0500 Body temperature 96 [degF] [facility] Work Phone: 1(791)578-658350 [place] [address] 07-11-2024 12:40-0500 Body weight 77.11 kg [facility] Work Phone: 0(807)484-574950 [place] [address] 07-11-2024 12:40-0500 Diastolic blood pressure 83 mm[Hg] [facility] Work Phone: 4(210)725-511750 [place] [address] 07-11-2024 12:40-0500 Heart rate 94 /min [facility] Work Phone: 7(471)410-084450 [place] [address] 07-11-2024 12:40-0500 Respiratory rate 16 /min [facility] Work Phone: 3(910)240-157850 [place] [address] 07-11-2024 12:40-0500 SaO2% (BldA) [Mass fraction] 98 % [facility] Work Phone: 9(730)938-382350 [place] [address] 07-11-2024 12:40-0500 Systolic blood pressure 154 mm[Hg] [facility] Work Phone: 6(665)901-991350 [place] [address] 07-10-2024 12:46-0500 Body temperature 96.4 [degF] [facility] Work Phone: 3(952)172-164450 [place] [address] 07-10-2024 12:46-0500 Diastolic blood pressure 63 mm[Hg] [facility] Work Phone: 2(832)637-360850 [place] [address] 07-10-2024 12:46-0500 Heart rate 91 /min [facility] Work Phone: 8(879)045-476550 [place] [address] 07-10-2024 12:46-0500 Respiratory rate 16 /min [facility] Work Phone: 8(277)978-428250 [place] [address] 07-10-2024 12:46-0500 SaO2% (BldA) [Mass fraction] 97 % [facility] Work Phone: 7(372)466-943650 [place] [address] 07-10-2024 12:46-0500 Systolic blood pressure 118 mm[Hg] [facility] Work Phone: 7(753)057-577350 [place] [address] 07-07-2024 12:29-0500 Body temperature 97 [degF] [facility] Work Phone: 7(099)931-441150 [place] [address] 07-07-2024 12:29-0500 Diastolic blood pressure 59 mm[Hg] [facility] Work Phone: 7(567)371-068250 [place] [address] 07-07-2024 12:29-0500 Heart rate 65 /min [facility] Work Phone: 1(014)771-409450 [place] [address] 07-07-2024 12:29-0500 Respiratory rate 16 /min [facility] Work Phone: 8(145)258-370150 [place] [address] 07-07-2024 12:29-0500 SaO2% (BldA) [Mass fraction] 99 % [facility] Work Phone: 3(893)681-119150 [place] [address] 07-07-2024 12:29-0500 Systolic blood pressure 107 mm[Hg] [facility] Work Phone: 7(710)142-654250 [place] [address] 07-05-2024 11:27-0500 Body temperature 95.9 [degF] [facility] Work Phone: 7(141)902-851550 [place] [address] 07-05-2024 11:27-0500 Diastolic blood pressure 83 mm[Hg] [facility] Work Phone: 1(979)251-222450 [place] [address] 07-05-2024 11:27-0500 Heart rate 96 /min [facility] Work Phone: 1(303)053-996950 [place] [address] 07-05-2024 11:27-0500 Respiratory rate 16 /min [facility] Work Phone: 4(948)679-088850 [place] [address] 07-05-2024 11:27-0500 SaO2% (BldA) [Mass fraction] 94 % [facility] Work Phone: 0(258)007-501150 [place] [address] 07-05-2024 11:27-0500 Systolic blood pressure 142 mm[Hg] [facility] Work Phone: 0(498)912-396650 [place] [address] 07-04-2024 12:57-0500 Body mass index (BMI) [Ratio] 26.6 kg/m2 [facility] Work Phone: 3(786)167-775450 [place] [address] 07-04-2024 12:57-0500 Body temperature 96.5 [degF] [facility] Work Phone: 1(178)685-693350 [place] [address] 07-04-2024 12:57-0500 Body weight 77.11 kg [facility] Work Phone: 6(914)866-678950 [place] [address] 07-04-2024 12:57-0500 Diastolic blood pressure 69 mm[Hg] [facility] Work Phone: 5(442)527-981050 [place] [address] 07-04-2024 12:57-0500 Heart rate 97 /min [facility] Work Phone: 4(494)078-734550 [place] [address] 07-04-2024 12:57-0500 Respiratory rate 16 /min [facility] Work Phone: 3(648)110-762850 [place] [address] 07-04-2024 12:57-0500 SaO2% (BldA) [Mass fraction] 100 % [facility] Work Phone: 7(153)881-962850 [place] [address] 07-04-2024 12:57-0500 Systolic blood pressure 128 mm[Hg] [facility] Work Phone: 3(088)178-768150 [place] [address] 07-03-2024 13:17-0500 Body temperature 97.3 [degF] [facility] Work Phone: 5(757)683-097050 [place] [address] 07-03-2024 13:17-0500 Diastolic blood pressure 57 mm[Hg] [facility] Work Phone: 9(681)062-379550 [place] [address] 07-03-2024 13:17-0500 Heart rate 85 /min [facility] Work Phone: 4(876)034-175050 [place] [address] 07-03-2024 13:17-0500 Respiratory rate 18 /min [facility] Work Phone: 7(341)570-264350 [place] [address] 07-03-2024 13:17-0500 SaO2% (BldA) [Mass fraction] 100 % [facility] Work Phone: 1(036)165-616750 [place] [address] 07-03-2024 13:17-0500 Systolic blood pressure 107 mm[Hg] [facility] Work Phone: 0(104)918-052550 [place] [address] 07-03-2024 03:57-0500 Body mass index (BMI) [Ratio] 28.8 kg/m2 [facility] Work Phone: 7(565)007-075250 [place] [address] 07-03-2024 03:57-0500 Body weight 83.3 kg [facility] Work Phone: 7(952)310-703050 [place] [address] 05-24-2024 14:00-0500 Diastolic Blood Pressure Non-Invasive 69 mm[Hg] DR RAYMUNDO VIEIRA DO [facility] 05-24-2024 14:00-0500 Heart rate 91 /min DR RAYMUNDO VIEIRA DO [facility] 05-24-2024 14:00-0500 Respiratory rate 16 /min DR RAYMUNDO VIEIRA DO [facility] 05-24-2024 14:00-0500 Systolic Blood Pressure Non-Invasive 113 mm[Hg] DR RAYMUNDO VIEIRA DO [facility] 05-23-2024 22:49-0500 Diastolic Blood Pressure Non-Invasive 72 mm[Hg] DR RAYMUNDO VIEIRA DO [facility] 05-23-2024 22:49-0500 Heart rate 93 /min DR RAYMUNDO VIEIRA DO [facility] 05-23-2024 22:49-0500 Respiratory rate 18 /min DR RAYMUNDO VIEIRA DO [facility] 05-23-2024 22:49-0500 Systolic Blood Pressure Non-Invasive 124 mm[Hg] DR RAYMUNDO VIEIRA DO [facility] 05-23-2024 20:03-0500 Diastolic Blood Pressure Non-Invasive 59 mm[Hg] DR RAYMUNDO VIEIRA DO [facility] 05-23-2024 20:03-0500 Heart rate 91 /min DR RAYMUNDO VIEIRA DO [facility] 05-23-2024 20:03-0500 Mean blood pressure 67 mm[Hg] DR RAYMUNDO VIEIRA DO [facility] 05-23-2024 20:03-0500 Respiratory rate 14 /min DR RAYMUNDO VIEIRA DO [facility] 05-23-2024 20:03-0500 Systolic Blood Pressure Non-Invasive 83 mm[Hg] DR RAYMUNDO VIEIRA DO [facility] 05-23-2024 19:34-05[address] Blood Pressure Cuff Size DR RAYMUNDO VIEIRA DO [facility] 05-23-2024 19:34-[address] RAYMUNDO VIEIRA DO [facility] 05-23-2024 19:34-[address] RAYMUNDO VIEIRA DO [facility] 05-23-2024 19:34-0500 Body temperature 98.06 [degF] DR RAYMUNDO VIEIRA DO [facility] 05-23-2024 19:34-0500 Heart rate 95 /min DR RAYMUNDO VIEIRA DO [facility] 04-29-2024 13:31-0500 Body temperature 98.2 [degF] [facility] Work Phone: 5(830)402-324715 [place] [address] 04-29-2024 13:31-0500 Diastolic blood pressure 70 mm[Hg] [facility] Work Phone: 8(598)664-838250 [place] [address] 04-29-2024 13:31-0500 Heart rate 89 /min [facility] Work Phone: 7(719)822-408050 [place] [address] 04-29-2024 13:31-0500 Respiratory rate 16 /min [facility] Work Phone: 6(064)686-318315 [place] [address] 04-29-2024 13:31-0500 SaO2% (BldA) [Mass fraction] 97 % [facility] Work Phone: 2(435)043-839515 [place] [address] 04-29-2024 13:31-0500 Systolic blood pressure 121 mm[Hg] [facility] Work Phone: 1(158)904-178450 [place] [address] 04-29-2024 10:26-0500 Body weight 73.66 kg [facility] Work Phone: 1(957)731-892850 [place] [address] 04-25-2024 16:40-0500 Body mass index (BMI) [Ratio] 25.4 kg/m2 [facility] Work Phone: 2(726)812-120750 [place] [address] 10-15-2023 17:28-0400 Body temperature 97.2 [degF] [facility] 10-15-2023 17:28-0400 Diastolic blood pressure 75 mm[Hg] [facility] 10-15-2023 17:28-0400 Heart rate 87 /min [facility] 10-15-2023 17:28-0400 Respiratory rate 17 /min [facility] 10-15-2023 17:28-0400 SaO2% (BldA) [Mass fraction] 98 % [facility] 10-15-2023 17:28-0400 Systolic blood pressure 131 mm[Hg] [facility] 10-15-2023 15:35-0400 Body height 170.18 cm [facility] 09-02-2023 09:42-0400 Body temperature 97.6 [degF] [facility] Work Phone: 9(447)915-044550 [place] [address] 09-02-2023 09:42-0400 Diastolic blood pressure 76 mm[Hg] [facility] Work Phone: 0(531)169-180450 [place] [address] 09-02-2023 09:42-0400 Heart rate 101 /min [facility] Work Phone: 5(429)428-668450 [place] [address] 09-02-2023 09:42-0400 Respiratory rate 16 /min [facility] Work Phone: 3(664)264-196950 [place] [address] 09-02-2023 09:42-0400 SaO2% (BldA) [Mass fraction] 95 % [facility] Work Phone: 2(016)890-916650 [place] [address] 09-02-2023 09:42-0400 Systolic blood pressure 148 mm[Hg] [facility] Work Phone: 3(186)108-259650 [place] [address] 09-02-2023 07:42-0400 Body height 170.18 cm [facility] Work Phone: 2(048)238-858850 [place] [address] 09-02-2023 07:42-0400 Body mass index (BMI) [Ratio] 29.7 kg/m2 [facility] Work Phone: 6(676)882-051750 [place] [address] 09-02-2023 07:42-0400 Body weight 86.1 kg [facility] Work Phone: 5(907)465-305550 [place] [address] 09-02-2023 07:42-0400 Inhaled oxygen flow rate 2 L/min [facility] Work Phone: 5(026)937-037750 [place] [address] 06-19-2023 09:59-0500 Respiratory rate 14 /min [facility] Work Phone: 6(290)862-040250 [place] [address] 06-19-2023 09:12-0500 Body mass index (BMI) [Ratio] 26.2 kg/m2 [facility] Work Phone: 4(488)003-991750 [place] [address] 06-19-2023 09:12-0500 Body weight 75.7 kg [facility] Work Phone: 4(352)961-805850 [place] [address] 06-19-2023 09:03-0500 Body height 170.18 cm [facility] Work Phone: 6(421)790-190550 [place] [address] 06-19-2023 09:03-0500 Body temperature 95 [degF] [facility] Work Phone: 1(543)752-588550 [place] [address] 06-19-2023 09:03-0500 Diastolic blood pressure 94 mm[Hg] [facility] Work Phone: 0(705)458-130050 [place] [address] 06-19-2023 09:03-0500 Heart rate 102 /min [facility] Work Phone: 6(370)007-829350 [place] [address] 06-19-2023 09:03-0500 SaO2% (BldA) [Mass fraction] 97 % [facility] Work Phone: 0(152)401-222450 [place] [address] 06-19-2023 09:03-0500 Systolic blood pressure 142 mm[Hg] [facility] Work Phone: 5(556)512-402550 [place] [address] 06-16-2023 11:30-0500 SaO2% (BldA) [Mass fraction] 93 % [facility] Work Phone: 5(088)685-963350 [place] [address] 06-16-2023 07:49-0500 Body temperature 97.6 [degF] [facility] Work Phone: 4(569)696-072950 [place] [address] 06-16-2023 07:49-0500 Diastolic blood pressure 80 mm[Hg] [facility] Work Phone: 4(435)151-589650 [place] [address] 06-16-2023 07:49-0500 Heart rate 79 /min [facility] Work Phone: 3(468)288-099450 [place] [address] 06-16-2023 07:49-0500 Respiratory rate 18 /min [facility] Work Phone: 4(284)465-083250 [place] [address] 06-16-2023 07:49-0500 Systolic blood pressure 119 mm[Hg] [facility] Work Phone: 4(941)286-358050 [place] [address] 06-15-2023 20:35-0500 Inhaled oxygen flow rate 2 L/min [facility] Work Phone: 0(762)381-133950 [place] [address] 06-13-2023 14:21-0500 Body height 170.18 cm [facility] Work Phone: 8(472)300-757450 [place] [address] 06-13-2023 14:21-0500 Body weight 79.42 kg [facility] Work Phone: 9(132)138-048650 [place] [address] 06-13-2023 03:00-0500 Body mass index (BMI) [Ratio] 27.4 kg/m2 [facility] Work Phone: 2(882)132-915750 [place] [address] 06-13-2023 01:36-0500 Diastolic blood pressure 92 mm[Hg] [facility] Work Phone: 7(960)778-895650 [place] [address] 06-13-2023 01:36-0500 Heart rate 98 /min [facility] Work Phone: 3(578)733-941150 [place] [address] 06-13-2023 01:36-0500 Respiratory rate 15 /min [facility] Work Phone: 6(089)600-214850 [place] [address] 06-13-2023 01:36-0500 SaO2% (BldA) [Mass fraction] 95 % [facility] Work Phone: 1(817)121-416250 [place] [address] 06-13-2023 01:36-0500 Systolic blood pressure 131 mm[Hg] [facility] Work Phone: 8(356)252-644050 [place] [address] 06-12-2023 23:01-0500 Inhaled oxygen flow rate 4 L/min [facility] Work Phone: 4(718)575-736050 [place] [address] 06-12-2023 19:59-0500 Body temperature 98.9 [degF] [facility] Work Phone: 3(537)582-225850 [place] [address] 05-26-2023 12:07-0500 Diastolic blood pressure 74 mm[Hg] [facility] Work Phone: 9(581)509-022450 [place] [address] 05-26-2023 12:07-0500 Heart rate 82 /min [facility] Work Phone: 5(709)480-446050 [place] [address] 05-26-2023 12:07-0500 Respiratory rate 16 /min [facility] Work Phone: 5(303)835-357750 [place] [address] 05-26-2023 12:07-0500 SaO2% (BldA) [Mass fraction] 96 % [facility] Work Phone: 7(532)902-584950 [place] [address] 05-26-2023 12:07-0500 Systolic blood pressure 138 mm[Hg] [facility] Work Phone: 5(507)652-617150 [place] [address] 05-26-2023 10:44-0500 Body mass index (BMI) [Ratio] 26.3 kg/m2 [facility] Work Phone: 1(676)992-216950 [place] [address] 05-26-2023 10:44-0500 Body weight 76.1 kg [facility] Work Phone: 8(608)322-336750 [place] [address] 05-26-2023 09:50-0500 Body temperature 96.6 [degF] [facility] Work Phone: 8(323)720-384150 [place] [address] 05-22-2023 16:02-0500 Respiratory rate 16 /min [facility] Work Phone: 2(540)828-802550 [place] [address] 05-22-2023 14:33-0500 Body mass index (BMI) [Ratio] 26.6 kg/m2 [facility] Work Phone: 1(752)096-714250 [place] [address] 05-22-2023 14:33-0500 Body weight 77.2 kg [facility] Work Phone: 9(835)166-544350 [place] [address] 05-22-2023 13:51-0500 Body height 170.18 cm [facility] Work Phone: 1(245)866-813650 [place] [address] 05-22-2023 13:51-0500 Body temperature 97.3 [degF] [facility] Work Phone: 2(278)243-461850 [place] [address] 05-22-2023 13:51-0500 Diastolic blood pressure 82 mm[Hg] [facility] Work Phone: 4(521)668-826850 [place] [address] 05-22-2023 13:51-0500 Heart rate 107 /min [facility] Work Phone: 4(754)328-845650 [place] [address] 05-22-2023 13:51-0500 SaO2% (BldA) [Mass fraction] 98 % [facility] Work Phone: 1(653)927-507450 [place] [address] 05-22-2023 13:51-0500 Systolic blood pressure 150 mm[Hg] [facility] Work Phone: 5(430)805-258350 [place] [address] 05-07-2023 16:50-0500 Body temperature 98.3 [degF] [facility] Work Phone: 1(566)875-864750 [place] [address] 05-07-2023 16:50-0500 Diastolic blood pressure 68 mm[Hg] [facility] Work Phone: 7(371)988-444050 [place] [address] 05-07-2023 16:50-0500 Heart rate 84 /min [facility] Work Phone: 1(591)739-432150 [place] [address] 05-07-2023 16:50-0500 Respiratory rate 16 /min [facility] Work Phone: 0(460)509-495550 [place] [address] 05-07-2023 16:50-0500 SaO2% (BldA) [Mass fraction] 99 % [facility] Work Phone: 6(760)578-613950 [place] [address] 05-07-2023 16:50-0500 Systolic blood pressure 101 mm[Hg] [facility] Work Phone: 4(686)410-968950 [place] [address] 05-07-2023 12:30-0500 Body temperature 98.4 [degF] [facility] Work Phone: 0(744)582-415650 [place] [address] 05-07-2023 12:30-0500 Diastolic blood pressure 63 mm[Hg] [facility] Work Phone: 1(164)024-613950 [place] [address] 05-07-2023 12:30-0500 Heart rate 85 /min [facility] Work Phone: 2(403)368-229650 [place] [address] 05-07-2023 12:30-0500 Respiratory rate 16 /min [facility] Work Phone: 0(831)394-017850 [place] [address] 05-07-2023 12:30-0500 SaO2% (BldA) [Mass fraction] 92 % [facility] Work Phone: 8(738)552-273950 [place] [address] 05-07-2023 12:30-0500 Systolic blood pressure 94 mm[Hg] [facility] Work Phone: 4(196)314-535350 [place] [address] 05-07-2023 06:00-0500 Body mass index (BMI) [Ratio] 26.4 kg/m2 [facility] Work Phone: 5(852)596-744650 [place] [address] 05-07-2023 06:00-0500 Body weight 76.5 kg [facility] Work Phone: 2(704)270-404450 [place] [address] 05-05-2023 07:53-0500 Inhaled oxygen flow rate 5 L/min [facility] Work Phone: 8(096)332-573050 [place] [address] 05-04-2023 15:22-0500 Body height 170.18 cm [facility] Work Phone: 0(585)178-748350 [place] [address] 05-03-2023 17:00-0500 Heart rate 110 /min [facility] Work Phone: 4(038)055-724450 [place] [address] 05-03-2023 17:00-0500 Inhaled oxygen flow rate 5 L/min [facility] Work Phone: 1(815)238-126450 [place] [address] 05-03-2023 17:00-0500 Respiratory rate 16 /min [facility] Work Phone: 5(988)919-415550 [place] [address] 05-03-2023 17:00-0500 SaO2% (BldA) [Mass fraction] 93 % [facility] Work Phone: 3(932)978-831250 [place] [address] 05-03-2023 16:23-0500 Diastolic blood pressure 84 mm[Hg] [facility] Work Phone: 4(839)026-218450 [place] [address] 05-03-2023 16:23-0500 Systolic blood pressure 134 mm[Hg] [facility] Work Phone: 6(329)086-266150 [place] [address] 05-03-2023 13:37-0500 Body height 170.18 cm [facility] Work Phone: 7(795)179-422450 [place] [address] 05-03-2023 13:37-0500 Body mass index (BMI) [Ratio] 26.6 kg/m2 [facility] Work Phone: 6(834)772-954650 [place] [address] 05-03-2023 13:37-0500 Body temperature 97.1 [degF] [facility] Work Phone: 4(419)780-083250 [place] [address] 05-03-2023 13:37-0500 Body weight 77.1 kg [facility] Work Phone: 2(742)397-742550 [place] [address] 04-18-2023 14:40-0500 Body height 170.18 cm [facility] Work Phone: 2(012)349-025450 [place] [address] 04-18-2023 14:40-0500 Body mass index (BMI) [Ratio] 25.8 kg/m2 [facility] Work Phone: 7(765)802-347150 [place] [address] 04-18-2023 14:40-0500 Body weight 74.84 kg [facility] Work Phone: 5(600)162-380050 [place] [address] 04-18-2023 14:40-0500 Diastolic blood pressure 87 mm[Hg] [facility] Work Phone: 4(624)196-948550 [place] [address] 04-18-2023 14:40-0500 Heart rate 91 /min [facility] Work Phone: 4(841)526-248350 [place] [address] 04-18-2023 14:40-0500 Respiratory rate 17 /min [facility] Work Phone: 3(496)065-722350 [place] [address] 04-18-2023 14:40-0500 SaO2% (BldA) [Mass fraction] 98 % [facility] Work Phone: 4(940)516-233750 [place] [address] 04-18-2023 14:40-0500 Systolic blood pressure 138 mm[Hg] [facility] Work Phone: 7(452)649-262850 [place] [address] 03-22-2023 13:40-0400 Body height 170.18 cm [facility] Work Phone: 9(426)897-457450 [place] [address] 03-22-2023 13:40-0400 Body mass index (BMI) [Ratio] 25.5 kg/m2 [facility] Work Phone: 6(178)113-492450 [place] [address] 03-22-2023 13:40-0400 Body weight 73.93 kg [facility] Work Phone: 9(156)154-896350 [place] [address] 03-22-2023 13:40-0400 Diastolic blood pressure 77 mm[Hg] [facility] Work Phone: 1(770)090-329150 [place] [address] 03-22-2023 13:40-0400 Heart rate 89 /min [facility] Work Phone: 6(413)284-340750 [place] [address] 03-22-2023 13:40-0400 Respiratory rate 18 /min [facility] Work Phone: 3(663)467-353050 [place] [address] 03-22-2023 13:40-0400 SaO2% (BldA) [Mass fraction] 99 % [facility] Work Phone: 7(407)755-533550 [place] [address] 03-22-2023 13:40-0400 Systolic blood pressure 114 mm[Hg] [facility] Work Phone: 5(584)710-966650 [place] [address] 02-28-2023 11:12-0400 Body mass index (BMI) [Ratio] 24.9 kg/m2 [facility] Work Phone: 0(528)411-789850 [place] [address] 02-28-2023 11:12-0400 Body weight 72.12 kg [facility] Work Phone: 3(125)490-888950 [place] [address] 02-28-2023 11:12-0400 Diastolic blood pressure 74 mm[Hg] [facility] Work Phone: 4(512)112-837150 [place] [address] 02-28-2023 11:12-0400 Heart rate 103 /min [facility] Work Phone: 2(316)980-120250 [place] [address] 02-28-2023 11:12-0400 Respiratory rate 18 /min [facility] Work Phone: 2(884)163-842650 [place] [address] 02-28-2023 11:12-0400 Systolic blood pressure 109 mm[Hg] [facility] Work Phone: 7(912)878-320750 [place] [address] 02-03-2023 15:12-0400 SaO2% (BldA) [Mass fraction] 97 % [facility] Work Phone: 4(118)803-112850 [place] [address] 02-03-2023 14:58-0400 Body temperature 97 [degF] [facility] Work Phone: 7(138)966-671650 [place] [address] 02-03-2023 14:58-0400 Diastolic blood pressure 71 mm[Hg] [facility] Work Phone: 3(453)[phone] [place] [address] 02-03-2023 14:58-0400 Heart rate 92 /min [facility] Work Phone: [phone])[phone] [place] [address] 02-03-2023 14:58-0400 Respiratory rate 18 /min [facility] Work Phone: 6(217)[phone] [place] [address] 02-03-2023 14:58-0400 Systolic blood pressure 99 mm[Hg] [facility] Work Phone: [phone] [place] [address] 02-03-2023 13:19-0400 Body height 170.18 cm [facility] Work Phone: 3(002)620-022950 [place] [address] 02-03-2023 13:19-0400 Body weight 71.1 kg [facility] Work Phone: 1(291)668-035050 [place] [address] 02-03-2023 10:30-0400 Inhaled oxygen flow rate 2 L/min [facility] Work Phone: 9(044)081-171250 [place] [address] 02-03-2023 03:59-0400 Body mass index (BMI) [Ratio] 24.5 kg/m2 [facility] Work Phone: 5(020)057-278250 [place] [address] 02-02-2023 21:45-0400 Inhaled oxygen concentration 2 % [facility] Work Phone: 3(369)893-607150 [place] [address] 02-02-2023 17:59-0400 Heart rate 112 /min [facility] Work Phone: 7(509)560-445350 [place] [address] 02-02-2023 17:59-0400 Inhaled oxygen flow rate 2 L/min [facility] Work Phone: 8(692)417-855650 [place] [address] 02-02-2023 17:59-0400 Respiratory rate 18 /min [facility] Work Phone: 2(054)137-536450 [place] [address] 02-02-2023 17:59-0400 SaO2% (BldA) [Mass fraction] 95 % [facility] Work Phone: 4(482)098-646950 [place] [address] 02-02-2023 16:00-0400 Body temperature 97 [degF] [facility] Work Phone: 6(307)792-791250 [place] [address] 02-02-2023 16:00-0400 Diastolic blood pressure 97 mm[Hg] [facility] Work Phone: 2(321)116-957450 [place] [address] 02-02-2023 16:00-0400 Systolic blood pressure 134 mm[Hg] [facility] Work Phone: 9(971)096-480650 [place] [address] 02-02-2023 11:21-0400 Body height 167.64 cm [facility] Work Phone: 8(799)778-039250 [place] [address] 02-02-2023 11:21-0400 Body mass index (BMI) [Ratio] 27.1 kg/m2 [facility] Work Phone: 9(072)172-252250 [place] [address] 02-02-2023 11:21-0400 Body weight 76.2 kg [facility] Work Phone: 4(356)849-575450 [place] [address] 01-03-2023 11:42-0400 Body temperature 98 [degF] [facility] Work Phone: 6(224)497-752950 [place] [address] 01-03-2023 11:42-0400 Diastolic blood pressure 66 mm[Hg] [facility] Work Phone: 9(474)368-629350 [place] [address] 01-03-2023 11:42-0400 Heart rate 92 /min [facility] Work Phone: 3(509)237-134050 [place] [address] 01-03-2023 11:42-0400 Respiratory rate 15 /min [facility] Work Phone: 2(660)877-285950 [place] [address] 01-03-2023 11:42-0400 SaO2% (BldA) [Mass fraction] 100 % [facility] Work Phone: 4(620)749-091950 [place] [address] 01-03-2023 11:42-0400 Systolic blood pressure 101 mm[Hg] [facility] Work Phone: 4(503)810-251250 [place] [address] 01-03-2023 05:29-0400 Body mass index (BMI) [Ratio] 25.9 kg/m2 [facility] Work Phone: 7(473)906-103250 [place] [address] 01-03-2023 05:29-0400 Body weight 73.1 kg [facility] Work Phone: 5(201)008-468050 [place] [address] 01-02-2023 12:06-0400 Body height 167.64 cm [facility] Work Phone: 2(998)673-474250 [place] [address] 01-02-2023 08:20-0400 Inhaled oxygen flow rate 2 L/min [facility] Work Phone: 7(608)259-319850 [place] [address] 01-01-2023 16:36-0400 Body temperature 98.2 [degF] [facility] Work Phone: 1(914)101-742750 [place] [address] 01-01-2023 16:36-0400 Diastolic blood pressure 96 mm[Hg] [facility] Work Phone: 9(163)264-637050 [place] [address] 01-01-2023 16:36-0400 Heart rate 105 /min [facility] Work Phone: 3(134)951-036750 [place] [address] 01-01-2023 16:36-0400 Inhaled oxygen flow rate 2 L/min [facility] Work Phone: 7(765)439-196150 [place] [address] 01-01-2023 16:36-0400 Respiratory rate 18 /min [facility] Work Phone: 6(989)476-642450 [place] [address] 01-01-2023 16:36-0400 SaO2% (BldA) [Mass fraction] 98 % [facility] Work Phone: 4(691)492-251650 [place] [address] 01-01-2023 16:36-0400 Systolic blood pressure 140 mm[Hg] [facility] Work Phone: 1(671)552-382850 [place] [address] 01-01-2023 12:11-0400 Body height 167.64 cm [facility] Work Phone: 4(106)898-851450 [place] [address] 01-01-2023 12:11-0400 Body mass index (BMI) [Ratio] 27.1 kg/m2 [facility] Work Phone: 2(110)403-112650 [place] [address] 01-01-2023 12:11-0400 Body weight 76.3 kg [facility] Work Phone: 8(810)428-932750 [place] [address] 10-01-2022 11:09-0400 Body height 167.[address] Nathaly Lainez Work Phone: 3(017)686-632350 [place] [address] 10-01-2022 11:09-0400 Body mass index (BMI) [Ratio] 25.2 kg/m2 Dr. Nathaly Lainez Work Phone: 5(562)337-396050 [place] [address] 10-01-2022 11:09-0400 Body temperature 95.7 [degF] Dr. Nathaly Lainez Work Phone: 4(729)671-621450 [place] [address] 10-01-2022 11:09-0400 Body weight 70.[address] Nathaly Lainez Work Phone: 3(703)825-475150 [place] [address] 10-01-2022 11:09-0400 Diastolic blood pressure 80 mm[Hg] Dr. Nathaly Lainez Work Phone: 8(416)702-595350 [place] [address] 10-01-2022 11:09-0400 Heart rate 102 /min Dr. Nathaly Lainez Work Phone: 3(894)519-020050 [place] [address] 10-01-2022 11:09-0400 Respiratory rate 24 /min Dr. Nathaly Lainez Work Phone: 0(236)034-009550 [place] [address] 10-01-2022 11:09-0400 SaO2% (BldA) [Mass fraction] 100 % Dr. Nathaly Lainez Work Phone: 7(788)226-037350 [place] [address] 10-01-2022 11:09-0400 Systolic blood pressure 119 mm[Hg] Dr. Nathaly Lainez Work Phone: 1(816)464-476950 [place] [address] 09-18-2022 18:57-0400 Diastolic blood pressure 83 mm[Hg] Dr. Nathaly Lainez Work Phone: 1(805)887-778250 [place] [address] 09-18-2022 18:57-0400 Heart rate 74 /min Dr. Nathaly Lainez Work Phone: 6(878)528-636450 [place] [address] 09-18-2022 18:57-0400 Respiratory rate 16 /min Dr. Nathaly Lainez Work Phone: 0(831)299-020250 [place] [address] 09-18-2022 18:57-0400 SaO2% (BldA) [Mass fraction] 98 % Dr. Nathaly Lainez Work Phone: 7(846)552-051450 [place] [address] 09-18-2022 18:57-0400 Systolic blood pressure 126 mm[Hg] Dr. Nathaly Lainez Work Phone: 8(162)245-494450 [place] [address] 09-18-2022 14:13-0400 Body height 167.[address] Nathaly Lainez Work Phone: 6(353)159-520250 [place] [address] 09-18-2022 14:13-0400 Body mass index (BMI) [Ratio] 25.2 kg/m2 Dr. Nathaly Lainez Work Phone: 5(743)182-997650 [place] [address] 09-18-2022 14:13-0400 Body temperature 97.6 [degF] Dr. Nathaly Lainez Work Phone: 1(375)649-132850 [place] [address] 09-18-2022 14:13-0400 Body weight 70.[address] Nathaly Lainez Work Phone: 1(434)417-286950 [place] [address] 09-11-2022 20:19-0400 Diastolic blood pressure 92 mm[Hg] Dr. Nathaly Lainez Work Phone: 4(685)805-500250 [place] [address] 09-11-2022 20:19-0400 Heart rate 101 /min Dr. Nathaly Lainez Work Phone: 6(216)347-762750 [place] [address] 09-11-2022 20:19-0400 Respiratory rate 17 /min Dr. Nathaly Lainez Work Phone: 1(299)753-386350 [place] [address] 09-11-2022 20:19-0400 SaO2% (BldA) [Mass fraction] 96 % Dr. Nathaly Lainez Work Phone: 2(808)185-368350 [place] [address] 09-11-2022 20:19-0400 Systolic blood pressure 142 mm[Hg] Dr. Nathaly Lainez Work Phone: 5(564)502-460350 [place] [address] 09-11-2022 14:27-0400 Body height 170.[address] Nathaly Lainez Work Phone: 4(270)477-894950 [place] [address] 09-11-2022 14:27-0400 Body mass index (BMI) [Ratio] 24.4 kg/m2 Dr. Nathaly Lainez Work Phone: 7(485)614-844150 [place] [address] 09-11-2022 14:27-0400 Body temperature 97.2 [degF] Dr. Nathaly Lainez Work Phone: 4(916)273-158950 [place] [address] 09-11-2022 14:27-0400 Body weight 70.[address] Nathaly Lainez Work Phone: 5(742)728-287950 [place] [address] 09-09-2022 23:43-0400 Diastolic blood pressure 74 mm[Hg] Dr. Nathaly Lainez Work Phone: 1(802)523-618150 [place] [address] 09-09-2022 23:43-0400 Systolic blood pressure 123 mm[Hg] Dr. Nathaly Lainez Work Phone: 7(473)572-823250 [place] [address] 09-09-2022 18:22-0400 Body height 170.[address] Nathaly Lainez Work Phone: 6(846)903-356050 [place] [address] 09-09-2022 18:22-0400 Body mass index (BMI) [Ratio] 24.4 kg/m2 Dr. Nathaly Lainez Work Phone: 6(129)985-371650 [place] [address] 09-09-2022 18:22-0400 Body temperature 97.4 [degF] Dr. Nathaly Lainez Work Phone: 0(395)826-804150 [place] [address] 09-09-2022 18:22-0400 Body weight 70.[address] Nathaly Lainez Work Phone: 3(339)326-858350 [place] [address] 09-09-2022 18:22-0400 Heart rate 111 /min Dr. Nathaly Lainez Work Phone: 6(426)792-447350 [place] [address] 09-09-2022 18:22-0400 Respiratory rate 16 /min Dr. Nathaly Lainez Work Phone: 2(890)336-056950 [place] [address] 09-09-2022 18:22-0400 SaO2% (BldA) [Mass fraction] 99 % Dr. Nathaly Lainez Work Phone: 8(096)348-525350 [place] [address] 09-05-2022 15:02-0400 Respiratory rate 18 /min Dr. Nathaly Lainez Work Phone: 7(452)569-915250 [place] [address] 09-05-2022 12:29-0400 Body height 170.[address] Nathaly Lainez Work Phone: 0(002)799-427850 [place] [address] 09-05-2022 12:29-0400 Body mass index (BMI) [Ratio] 26.3 kg/m2 Dr. Nathaly Lainez Work Phone: 1(020)300-792550 [place] [address] 09-05-2022 12:29-0400 Body temperature 98.3 [degF] Dr. Nathaly Lainez Work Phone: 6(200)496-095150 [place] [address] 09-05-2022 12:29-0400 Body weight 76.[address] Nathayl Lainez Work Phone: 3(198)997-790550 [place] [address] 09-05-2022 12:29-0400 Diastolic blood pressure 90 mm[Hg] Dr. Nathaly Lainez Work Phone: 7(322)265-380850 [place] [address] 09-05-2022 12:29-0400 Heart rate 111 /min Dr. Nathaly Lainez Work Phone: 5(113)625-343550 [place] [address] 09-05-2022 12:29-0400 SaO2% (BldA) [Mass fraction] 98 % Dr. Nathaly Lainez Work Phone: 5(196)732-355250 [place] [address] 09-05-2022 12:29-0400 Systolic blood pressure 139 mm[Hg] Dr. Nathaly Lainez Work Phone: 8(485)598-974950 [place] [address] 09-02-2022 13:40-0400 Body temperature 97.9 [degF] Dr. Nathaly Lainez Work Phone: 3(229)802-310850 [place] [address] 09-02-2022 13:40-0400 Diastolic blood pressure 66 mm[Hg] Dr. Nathaly Lainez Work Phone: 2(031)967-141250 [place] [address] 09-02-2022 13:40-0400 Heart rate 98 /min Dr. Nathaly Lainez Work Phone: 7(756)262-305450 [place] [address] 09-02-2022 13:40-0400 Respiratory rate 18 /min Dr. Nathaly Lainez Work Phone: 4(349)582-062950 [place] [address] 09-02-2022 13:40-0400 SaO2% (BldA) [Mass fraction] 96 % Dr. Nathaly Lainez Work Phone: 4(391)855-251050 [place] [address] 09-02-2022 13:40-0400 Systolic blood pressure 108 mm[Hg] Dr. Nathaly Lainez Work Phone: 7(289)437-720550 [place] [address] 08-31-2022 16:10-0400 Inhaled oxygen flow rate 4 L/min Dr. Nathaly Lainez Work Phone: 2(725)164-318550 [place] [address] 08-31-2022 14:32-0400 Body height 170.[address] Nathaly Lainez Work Phone: 0(537)298-077950 [place] [address] 08-31-2022 14:32-0400 Body weight 70.[address] Nathaly Lainez Work Phone: 5(024)959-608550 [place] [address] 08-31-2022 09:14-0400 Body mass index (BMI) [Ratio] 24.4 kg/m2 Dr. Nathaly Lainez Work Phone: 9(053)406-240650 [place] [address] 08-30-2022 17:01-0400 Diastolic blood pressure 101 mm[Hg] Dr. Nahtaly Lainez Work Phone: 6(792)637-444050 [place] [address] 08-30-2022 17:01-0400 Heart rate 118 /min Dr. Nathaly Lainez Work Phone: 5(305)293-710850 [place] [address] 08-30-2022 17:01-0400 Respiratory rate 18 /min Dr. Nathaly Lainez Work Phone: 9(940)308-447650 [place] [address] 08-30-2022 17:01-0400 SaO2% (BldA) [Mass fraction] 97 % Dr. Nathaly Lainez Work Phone: 5(948)568-374150 [place] [address] 08-30-2022 17:01-0400 Systolic blood pressure 142 mm[Hg] Dr. Nathaly Lainez Work Phone: 3(419)922-323250 [place] [address] 08-30-2022 16:13-0400 Body temperature 98.4 [degF] Dr. Nathaly Lainez Work Phone: 6(284)147-017323 [address] 08-30-2022 13:53-0400 Body height 170.[address] Nathaly Lainez Work Phone: 1(727)468-544450 [place] [address] 08-30-2022 13:53-0400 Body mass index (BMI) [Ratio] 24.4 kg/m2 Dr. Nathaly Lainez Work Phone: 1(565)756-452423 [address] 08-30-2022 13:53-0400 Body weight 70.[address] Nathaly Lainez Work Phone: 2(065)052-062650 [place] [address] 08-23-2022 13:03-0400 Body weight 73.[address] Nathaly Lainez Work Phone: 6(996)958-490250 [place] [address] 08-23-2022 13:03-0400 Diastolic blood pressure 81 mm[Hg] Dr. Nathaly Lainez Work Phone: 6(961)156-348950 [place] [address] 08-23-2022 13:03-0400 Heart rate 110 /min Dr. Nathaly Lainez Work Phone: 3(413)703-233650 [place] [address] 08-23-2022 13:03-0400 Respiratory rate 16 /min Dr. Nathaly Lainez Work Phone: 0(274)944-189650 [place] [address] 08-23-2022 13:03-0400 SaO2% (BldA) [Mass fraction] 99 % Dr. Nathaly Lainez Work Phone: 7(055)270-070123 [address] 08-23-2022 13:03-0400 Systolic blood pressure 124 mm[Hg] Dr. Nathaly Lainez Work Phone: 5(508)768-444923 [address] 08-14-2022 16:50-0400 Diastolic blood pressure 68 mm[Hg] Dr. Nathaly Lainez Work Phone: 5(777)139-700350 [place] [address] 08-14-2022 16:50-0400 Heart rate 89 /min Dr. Nathaly Lainez Work Phone: 2(243)710-998315 [place] [address] 08-14-2022 16:50-0400 Respiratory rate 16 /min Dr. Nathaly Lainez Work Phone: 5(539)117-840550 [place] [address] 08-14-2022 16:50-0400 SaO2% (BldA) [Mass fraction] 95 % Dr. Nathaly Lainez Work Phone: 9(977)172-867150 [place] [address] 08-14-2022 16:50-0400 Systolic blood pressure 142 mm[Hg] Dr. Nathaly Lainez Work Phone: 9(499)110-874550 [place] [address] 08-14-2022 13:51-0400 Body temperature 97.8 [degF] Dr. Nathaly Lainez Work Phone: 7(429)382-856250 [place] [address] 08-14-2022 13:37-0400 Body height 170.[address] Nathaly Lainez Work Phone: 9(526)627-837850 [place] [address] 08-14-2022 13:37-0400 Body mass index (BMI) [Ratio] 24.7 kg/m2 Dr. Nathaly Lainez Work Phone: 1(450)693-453950 [place] [address] 08-14-2022 13:37-0400 Body weight 71.[address] Nathaly Lainez Work Phone: 2(781)349-119050 [place] [address] 08-10-2022 07:07-0500 Body height 170.[address] Nathaly Lainez Work Phone: 6(308)901-487450 [place] [address] 08-10-2022 07:07-0500 Body weight 69.[address] Nathaly Lainez Work Phone: 5(996)059-143050 [place] [address] 08-09-2022 15:33-0500 Body mass index (BMI) [Ratio] 24.1 kg/m2 Dr. Nathaly Lainez Work Phone: 0(302)310-860250 [place] [address] 08-09-2022 10:47-0500 Body temperature 98 [degF] Dr. Nathaly Lainez Work Phone: 4(939)515-703850 [place] [address] 08-09-2022 10:47-0500 Diastolic blood pressure 89 mm[Hg] Dr. Nathaly Lainez Work Phone: 4(884)704-572150 [place] [address] 08-09-2022 10:47-0500 Heart rate 103 /min Dr. Nathaly Lainez Work Phone: 4(369)351-535750 [place] [address] 08-09-2022 10:47-0500 Respiratory rate 18 /min Dr. Nathaly Lainez Work Phone: 1(184)426-012550 [place] [address] 08-09-2022 10:47-0500 SaO2% (BldA) [Mass fraction] 97 % Dr. Nathaly Lainez Work Phone: 5(816)891-472250 [place] [address] 08-09-2022 10:47-0500 Systolic blood pressure 136 mm[Hg] Dr. Nathaly Lainez Work Phone: 2(623)490-795450 [place] [address] 08-06-2022 16:45-0500 Body temperature 97.8 [degF] Dr. Nathaly Lainez Work Phone: 3(801)902-891750 [place] [address] 08-06-2022 16:45-0500 Diastolic blood pressure 78 mm[Hg] Dr. Nathaly Lainez Work Phone: 7(186)279-630550 [place] [address] 08-06-2022 16:45-0500 Heart rate 76 /min Dr. Nathaly Lainez Work Phone: 5(484)232-761550 [place] [address] 08-06-2022 16:45-0500 Respiratory rate 16 /min Dr. Nathaly Lainez Work Phone: 7(921)727-026850 [place] [address] 08-06-2022 16:45-0500 SaO2% (BldA) [Mass fraction] 99 % Dr. Nathaly Lainez Work Phone: 4(749)473-961850 [place] [address] 08-06-2022 16:45-0500 Systolic blood pressure 143 mm[Hg] Dr. Nathaly Lainez Work Phone: 9(952)815-508850 [place] [address] 08-06-2022 14:43-0500 Body mass index (BMI) [Ratio] 24.2 kg/m2 Dr. Nathaly Lainez Work Phone: 6(410)059-417650 [place] [address] 08-06-2022 14:43-0500 Body weight 70.[address] Nathaly Lainez Work Phone: 7(475)739-232550 [place] [address] 08-03-2022 16:26-0500 Diastolic blood pressure 74 mm[Hg] Dr. Nathaly Lainez Work Phone: 0(786)031-632250 [place] [address] 08-03-2022 16:26-0500 Heart rate 107 /min Dr. Nathaly Lainez Work Phone: 9(826)978-520350 [place] [address] 08-03-2022 16:26-0500 Respiratory rate 18 /min Dr. Nathaly Lainez Work Phone: 0(685)948-925650 [place] [address] 08-03-2022 16:26-0500 SaO2% (BldA) [Mass fraction] 94 % Dr. Nathaly Lainez Work Phone: 0(820)332-138850 [place] [address] 08-03-2022 16:26-0500 Systolic blood pressure 114 mm[Hg] Dr. Nathaly Lainez Work Phone: 4(402)576-668150 [place] [address] 08-03-2022 12:19-0500 Body height 170.[address] Nathaly Lainez Work Phone: 1(153)127-745950 [place] [address] 08-03-2022 12:19-0500 Body mass index (BMI) [Ratio] 25.2 kg/m2 Dr. Nathaly Lainez Work Phone: 0(050)855-007950 [place] [address] 08-03-2022 12:19-0500 Body temperature 97.7 [degF] Dr. Nathaly Lainez Work Phone: 3(451)450-023250 [place] [address] 08-03-2022 12:19-0500 Body weight 73.[address] Nathaly Lainez Work Phone: 6(440)570-490450 [place] [address] 07-25-2022 12:13-0500 Diastolic blood pressure 90 mm[Hg] Dr. Nathaly Lainez Work Phone: 2(209)254-134150 [place] [address] 07-25-2022 12:13-0500 Heart rate 78 /min Dr. Nathaly Lainez Work Phone: 1(946)569-730950 [place] [address] 07-25-2022 12:13-0500 Respiratory rate 18 /min Dr. Nathaly Lainez Work Phone: 6(968)381-850350 [place] [address] 07-25-2022 12:13-0500 SaO2% (BldA) [Mass fraction] 98 % Dr. Nathaly Lainez Work Phone: [facility] 07-25-2022 12:13-0500 Systolic blood pressure 142 mm[Hg] Dr. Nathaly Lainez Work Phone: [facility] 07-25-2022 09:16-0500 Body height 170.[address] Nathaly Lainez Work Phone: [facility] 07-25-2022 09:16-0500 Body mass index (BMI) [Ratio] 26.3 kg/m2 Dr. Nathaly Lainez Work Phone: [facility] 07-25-2022 09:16-0500 Body temperature 97.4 [degF] Dr. Nathaly Lainez Work Phone: [facility] 07-25-2022 09:16-0500 Body weight 76.[address] Nathaly Lainez Work Phone: [facility] 06-08-2022 14:09-0500 Body height 167.6 cm Jerry Robert PA-C Work Phone: [facility] 06-08-2022 14:09-0500 Body mass index (BMI) [Ratio] 25.02 kg/m2 Jerry Robert PA-C Work Phone: [facility] 06-08-2022 14:09-0500 Body weight 70.31 kg Jerry Robert PA-C Work Phone: [facility] 06-08-2022 14:09-0500 Diastolic blood pressure 95 mm[Hg] Jerry Robert PA-C Work Phone: [facility] 06-08-2022 14:09-0500 Heart rate 117 /min Jerry Robert PA-C Work Phone: [facility] 06-08-2022 14:09-0500 Systolic blood pressure 135 mm[Hg] Jerry Robert PA-C Work Phone: [facility] [employer] 05-19-2022 19:29-0500 Heart rate 102 /min Dr. Nathaly Lainez Work Phone: 1(080)174-973523 [address] 05-19-2022 19:29-0500 SaO2% (BldA) [Mass fraction] 97 % Dr. Nathaly Lainez Work Phone: 0(489)000-712250 [place] [address] 05-19-2022 14:45-0500 Body height 170.[address] Nathaly Lainez Work Phone: 7(335)248-819823 [address] Work Phone: 05-19-2022 14:45-0500 Body mass index (BMI) [Ratio] 24.3 kg/m2 Dr. Nathaly Lainez Work Phone: 2(462)446-384250 [place] [address] 05-19-2022 14:45-0500 Body temperature 96 [degF] Dr. Nathaly Lainez Work Phone: 5(750)[phone] [place] [address] 05-19-2022 14:45-0500 Body weight 70.[address] Nathaly Lainez Work Phone: 7(952)252-054450 [place] [address] 05-19-2022 14:45-0500 Diastolic blood pressure 87 mm[Hg] Dr. Nathaly Lainez Work Phone: 9(225)[phone] [place] [address] 05-19-2022 14:45-0500 Respiratory rate 18 /min Dr. Nathaly Lainez Work Phone: 0(270)542-316450 [place] [address] 05-19-2022 14:45-0500 Systolic blood pressure 127 mm[Hg] Dr. Nathaly Lainez Work Phone: 7(210)863-824050 [place] [address] 05-10-2022 00:56-0500 Diastolic blood pressure 75 mm[Hg] Dr. Nathaly Lainez Work Phone: 9(539)339-171550 [place] [address] 05-10-2022 00:56-0500 Heart rate 101 /min Dr. Nathaly Lainez Work Phone: 1(633)109-166150 [place] [address] 05-10-2022 00:56-0500 Respiratory rate 17 /min Dr. Nathaly Lainez Work Phone: 3(106)425-508650 [place] [address] 05-10-2022 00:56-0500 SaO2% (BldA) [Mass fraction] 94 % Dr. Nathaly Lainez Work Phone: [facility] 05-10-2022 00:56-0500 Systolic blood pressure 118 mm[Hg] Dr. Nathaly Lainez Work Phone: [facility] 05-09-2022 19:01-0500 Body height 170.[address] Nathaly Lainez Work Phone: [facility] Work Phone: 05-09-2022 19:01-0500 Body mass index (BMI) [Ratio] 24.3 kg/m2 Dr. Nathaly Lainez Work Phone: [facility] 05-09-2022 19:01-0500 Body temperature 97.5 [degF] Dr. Nathaly Lainez Work Phone: [facility] 05-09-2022 19:01-0500 Body weight 70.[address] Nathaly Lainez Work Phone: [facility] 04-18-2022 14:04-0500 Body height 170.18 cm [facility] Work Phone: 04-18-2022 14:04-0500 Body mass index (BMI) [Ratio] 24.7 kg/m2 [facility] 04-18-2022 14:04-0500 Body temperature 97.2 [degF] [facility] 04-18-2022 14:04-0500 Body weight 71.6 kg [facility] 04-18-2022 14:04-0500 Diastolic blood pressure 88 mm[Hg] [facility] 04-18-2022 14:04-0500 Heart rate 115 /min [facility] 04-18-2022 14:04-0500 Respiratory rate 16 /min [facility] 04-18-2022 14:04-0500 SaO2% (BldA) [Mass fraction] 97 % [facility] 04-18-2022 14:04-0500 Systolic blood pressure 139 mm[Hg] [facility] 04-17-2022 13:53-0500 Body height 170.18 cm [facility] Work Phone: 04-17-2022 13:53-0500 Body mass index (BMI) [Ratio] 24.3 kg/m2 [facility] 04-17-2022 13:53-0500 Body temperature 97.9 [degF] [facility] 04-17-2022 13:53-0500 Body weight 70.3 kg [facility] 04-17-2022 13:53-0500 Diastolic blood pressure 80 mm[Hg] [facility] 04-17-2022 13:53-0500 Heart rate 130 /min [facility] 04-17-2022 13:53-0500 Respiratory rate 18 /min [facility] 04-17-2022 13:53-0500 SaO2% (BldA) [Mass fraction] 97 % [facility] 04-17-2022 13:53-0500 Systolic blood pressure 125 mm[Hg] [facility] 03-27-2022 12:26-0400 Diastolic blood pressure 90 mm[Hg] [facility] 03-27-2022 12:26-0400 Heart rate 103 /min [facility] 03-27-2022 12:26-0400 Respiratory rate 16 /min [facility] 03-27-2022 12:26-0400 SaO2% (BldA) [Mass fraction] 96 % [facility] 03-27-2022 12:26-0400 Systolic blood pressure 130 mm[Hg] [facility] 03-27-2022 10:29-0400 Body height 170.18 cm [facility] Work Phone: 03-27-2022 10:29-0400 Body mass index (BMI) [Ratio] 24.8 kg/m2 [facility] 03-27-2022 10:29-0400 Body temperature 96.7 [degF] [facility] 03-27-2022 10:29-0400 Body weight 72.07 kg [facility] 08-13-2021 15:21-0500 Diastolic blood pressure 80 mm[Hg] Pcp [facility] 08-13-2021 15:21-0500 Heart rate 73 /min Pcp Unknown [facility] 08-13-2021 15:21-0500 Respiratory rate 16 /min Pcp Unknown [facility] 08-13-2021 15:21-0500 SaO2% (BldA) [Mass fraction] 99 % Pcp Unknown [facility] 08-13-2021 15:21-0500 Systolic blood pressure 131 mm[Hg] Pcp Unknown [facility] 08-13-2021 12:41-0500 Body temperature 97.52 [degF] Pcp Unknown [facility] Encounters Encounter Date Encounter Type Care Provider Facility Start: 12-12-2024 End: 12-12-2024 Zohreh Mckeon SHANK ARCHER-C Work Phone: -Emergency Department Work Phone: Start: 12-12-2024 End: 12-12-2024 Emergency department patient visit Zohreh Mckeon SHANK ARCHER-C Work Phone: -Emergency Department Start: 09-29-2024 End: 09-29-2024 [facility] Work Phone: -Emergency Department Work Phone: Start: 09-29-2024 End: 09-29-2024 Emergency department patient visit [facility] Work Phone: [facility] Work Phone: Start: 09-24-2024 ambulatory Nichelle Mcneil Facili ty:[facility] Start: 09-23-2024 ambulatory Nichelle Mcneil Facili ty:[facility] Start: 09-22-2024 [facility] Start: 09-21-2024 End: 09-21-2024 [facility] Work Phone: -Emergency Department Work Phone: Start: 09-21-2024 End: 09-21-2024 Emergency department patient visit [facility] Work Phone: [facility] Work Phone: Start: 09-21-2024 ambulatory Nichelle Tarun Facili ty:[facility] Start: 09-20-2024 [facility] Start: 09-19-2024 [facility] Start: 09-18-2024 ambulatory [facility] Fa cility:[facility] Start: 09-17-2024 [facility] Start: 09-16-2024 Dr. Latricia Aaron MD [...] Inpatient Physicians Work Phone: Start: 09-09-2024 ambulatory [facility] Fa cility:[facility] Start: 09-09-2024 End: 09-16-2024 Evaluation and management of inpatient [facility] Work Phone: [facility] Work Phone: Start: 09-09-2024 End: 09-16-2024 Dr. Latricia Aaron MD -[facility] Un it Work Phone: Start: 09-08-2024 Dr. Brenda Posadas MD -[facility] Work Phone: Start: 09-07-2024 ambulatory [facility] Fa cility:[facility] Start: 09-07-2024 observation encounter [facility] Work Phone: [facility] Work Phone: Start: 09-07-2024 Dr. Rosaura friedman MD -Progressive Care Unit Work Phone: Start: 09-05-2024 End: 09-05-2024 [facility] Work Phone: -Emergency Department Work Phone: Start: 09-05-2024 End: 09-05-2024 Emergency department patient visit [facility] Work Phone: [facility] Work Phone: Start: 09-02-2024 Dr. Latricia Aaron MD - [facility] Work Phone: Start: 09-01-2024 ambulatory Zohrehdmitriy Mckeon [facility] Fa cility:[facility] Start: 09-01-2024 Dr. Alli Brito MD -[facility] Start: 09-01-2024 Dr. Latricia Aaron MD -[facility] Work Phone: Start: 08-31-2024 Dr. iNcole Trujillo DO -[facility] Work [...] End: 09-02-2024 Evaluation and management of inpatient [facility] Work Phone: [facility] Work Phone: Start: 08-26-2024 End: 09-02-2024 Dr. Brenda Posadas MD -Intensive Care Unit Work Phone: Start: 08-26-2024 ambulatory Nicole Trujillo Facility:[facility] Start: 08-26-2024 ambulatory Riccardo Ng Facility:[facility] Start: 08-26-2024 Dr. Riccardo Ng MD -[facility] Start: 08-01-2024 End: 08-01-2024 Dr. Riccardo Hillman DO -Emergency Departme nt Work Phone: Start: 08-01-2024 End: 08-01-2024 Emergency department patient visit [facility] Facility:[facility] Start: 07-17-2024 ambulatory [facility] Fa cility:[facility] Start: 07-11-2024 End: 07-11-2024 Dr. Nicole Trujillo DO -Medical Out Work Phone: Start: 07-11-2024 End: 07-11-2024 ambulatory Nicole Trujillo Facility:[facility] Start: 07-10-2024 End: 07-10-2024 Dr. Nicole Trujillo DO -Medical Out Work Phone: Start: 07-10-2024 End: 07-10-2024 ambulatory Nicole Trujillo Facility:[facility] Start: 07-09-2024 ambulatory Nicole Trujillo Facility:[facility] Start: 07-08-2024 ambulatory Nicole Trujillo Facility:[facility] Start: 07-07-2024 End: 07-07-2024 Dr. Nicole Trujillo DO -Medical Out Work Phone: Start: 07-07-2024 End: 07-07-2024 ambulatory Nicole Trujillo Facility:[facility] Start: 07-06-2024 End: 07-06-2024 Dr. Nicole Trujillo DO -Medical Out Work Phone: Start: 07-06-2024 End: 07-06-2024 ambulatory Nicole Trujillo Facility:[facility] Start: 07-05-2024 End: 07-05-2024 Dr. Nicole Trujillo DO -Medical Out Work Phone: Start: 07-05-2024 End: 07-05-2024 ambulatory Nicole Trujillo Facility:[facility] Start: 07-04-2024 End: 07-04-2024 Dr. Nicole Trujillo DO -Medical Out Work Phone: Start: 07-04-2024 End: 07-04-2024 ambulatory Nicole Trujillo Facility:[facility] Start: 07-03-2024 Dr. Nicole Trujillo DO -[facility] Work Phone: Start: 07-02-2024 Dr. Nicole Trujillo DO -[facility] Work Phone: Start: 07-01-2024 Dr. Nicole Trujillo DO -[facility] Work Phone: Start: 06-30-2024 Dr. Nicole Trujillo DO -[facility] Work Phone: Start: 06-29-2024 End: 07-03-2024 Evaluation and management of inpatient Nicole Trujillo Facility:[facility] Start: 06-29-2024 End: 07-03-2024 Dr. Nicole Trujillo DO -Medical Surgical 3 Work Phone: Start: 06-29-2024 ambulatory Nicole Trujillo Facility:[facility] Start: 05-23-2024 End: 05-24-2024 Emergency department patient visit DR RAYMUNDO VIEIRA DO [facility] Start: 04-29-2024 Dr. Talisha chen MD -[facility] Work Phone: Start: 04-28-2024 Dr. Talisha chen MD -[facility] Work Phone: Start: 04-25-2024 ambulatory Nicole Trujillo Facility:[facility] Start: 04-25-2024 End: 04-29-2024 Evaluation and management of inpatient Nicole Trujillo Facility:[facility] Start: 04-25-2024 End: 04-29-2024 Dr. Talisha Boykin MD -Medical Surgical 3 Work Phone: Start: 02-14-2024 End: 02-19-2024 ambulatory Brandon Adames Facility:[facility] Start: 02-06-2024 End: 02-06-2024 Telephone encounter Gerda Rivero MD Work Phone: Endocrine Surgery Comment on above: Appointment ( Jimena trejo attempts to contact patient to schedule appointment with regarding incidental growth found in adrenal gland, not able to contact. Scheduled appointment with for 02/20 at 1:30 PM and mailed out appointment reminder.) Start: 01-10-2024 End: 01-10-2024 Emergency department patient visit [facility] Facility:[facility] Start: 12-29-2023 [facility] Start: 12-29-2023 End: 01-01-2024 Evaluation and management of inpatient [facility] Facility:[facility] Start: 11-20-2023 Telephone encounter Stephanie Whiting [facility] Comment on above: Orders (AG HFC defer ral) Start: 10-22-2023 Telephone encounter Stephanie Whiting [facility] Comment on above: Orders (AG HFC order contact/SNF ltr) Start: 10-18-2023 End: 10-19-2023 ambulatory ALFREDOERICKA CALDWELLL Facility:[facility] Start: 10-18-2023 Telephone encounter Diya Patten MD Work Phone: [facility] Comment on above: returned nursing hair e call; Patient Update Start: 10-15-2023 End: 10-15-2023 Emergency department patient visit [facility]-Emergency Department Work Phone: Start: 10-12-[address] [facility] Start: 10-09-2023 Telephone encounter Diya Patten MD Work Phone: [facility] Start: 10-08-[address] [facility] Start: 10-04-2023 Telephone encounter Diya Patten MD Work Phone: [facility] Comment on above: Patient Update Start: 10-02-2023 Telephone encounter Diya Patten MD Work Phone: [facility] Comment on above: Contact Center Call; Patient Update; PHYSICIAN INSTRUCTIONS Start: 10-01-2023 Telephone encounter Diya Patten MD Work Phone: [facility] Comment on above: Patient Update Start: 10-01-[address] [facility] Start: 09-29-[address] [facility] Start: 09-27-2023 Telephone encounter Diya Patten MD Work Phone: [facility] Comment on above: Patient Question; Ab scess Start: 09-24-[address] [facility] Start: 09-17-2023 Registered Referred [facility] Work Phone: [facility] Start: 09-12-2023 Telephone encounter Diya Patten MD Work Phone: [facility] Comment on above: Appointment; Radiolo gy XR Start: 09-10-2023 End: 09-10-2023 amb[address] [facility] Work Phone: [facility] Work Phone: Start: 09-10-2023 End: 09-10-2023 Departed Referred [facility] Work Phone: [facility] Start: 09-02-2023 End: 09-07-2023 Evaluation and management of inpatient [facility] Facility:[facility] Start: 09-02-2023 End: 09-02-2023 Emergency department patient visit [facility] Start: 06-19-2023 End: 06-19-2023 Emergency department patient visit [facility] Work Phone: [facility]-Emergency Department Work Phone: Start: 06-18-2023 Registered Rec[facility]ring [facility] Work Phone: [facility]-Patient Link Work Phone: Start: 06-16-2023 Non-patient / Non-visit [facility] Work Phone: [facility] Work Phone: Start: 06-15-2023 Non-patient / Non-visit [facility] Work Phone: [facility] Work Phone: Start: 06-14-2023 Non-patient / Non-visit [facility] Work Phone: [facility] Work Phone: Start: 06-13-2023 Non-patient / Non-visit [facility] Work Phone: [facility] Work Phone: Start: 06-13-2023 End: 06-16-2023 Evaluation and management of inpatient [facility] Work Phone: [facility]-Progressive Care Unit Work Phone: Start: 05-26-2023 End: 05-26-2023 Emergency department patient visit [facility] Work Phone: [facility]-Emergency Department Work Phone: Start: 05-22-2023 End: 05-22-2023 Emergency department patient visit [facility] Work Phone: [facility]-Emergency Department Work Phone: Start: 05-07-2023 Non-patient / Non-visit [facility] Work Phone: [facility] Work Phone: Start: 05-06-2023 Non-patient / Non-visit [facility] Work Phone: [facility] Start: 05-06-2023 Non-patient / Non-visit [facility] Work Phone: [facility] Work Phone: Start: 05-05-2023 Non-patient / Non-visit [facility] Work Phone: [facility] Start: 05-05-2023 Non-patient / Non-visit [facility] Work Phone: [facility] Work Phone: Start: 05-04-2023 Non-patient / Non-visit [facility] Work Phone: [facility] Work Phone: Start: 05-04-2023 Non-patient / Non-visit [facility] Work Phone: [facility] Start: 05-03-2023 End: 05-07-2023 Evaluation and management of inpatient [facility] Work Phone: [facility]-Progressive Care Unit Work Phone: Start: 04-18-2023 End: 04-18-2023 ambulatory [facility] Work Phone: [facility] Work Phone: Start: 04-18-2023 End: 04-18-2023 Patient encounter procedure [facility] Work Phone: [facility] Work Phone: Start: 04-05-2023 End: 04-05-2023 ambulatory [facility] Work Phone: [facility] Work Phone: Start: 04-05-2023 End: 04-05-2023 Patient encounter procedure [facility] Work Phone: [facility]-Sleep Lab Work Phone: Start: 03-22-2023 End: 03-22-2023 Patient encounter procedure [facility] Work Phone: [facility] Work Phone: Start: 02-28-2023 End: 02-28-2023 Patient encounter procedure [facility] Work Phone: [facility] Work Phone: Start: 02-06-2023 Non-patient / Non-visit [facility] Work Phone: [facility] Work Phone: Start: 02-02-2023 Non-patient / Non-visit [facility] Work Phone: [facility] Work Phone: Start: 02-02-2023 End: 02-03-2023 Evaluation and management of inpatient [facility] Work Phone: [facility]-Progressive Care Unit Work Phone: Start: 02-02-2023 End: 02-03-2023 observation encounter [facility] Work Phone: [facility] Work Phone: Start: 01-03-2023 Non-patient / Non-visit [facility] Work Phone: [facility] Work Phone: Start: 01-02-2023 Non-patient / Non-visit [facility] Work Phone: [facility] Work Phone: Start: 01-01-2023 Non-patient / Non-visit [facility] Work Phone: [facility] Work Phone: Start: 01-01-2023 End: 01-03-2023 Evaluation and management of inpatient [facility] Work Phone: [facility]-Progressive Care Unit Work Phone: Start: 10-01-2022 End: 10-01-2022 Emergency department patient visit Dr. Nathaly Lainez Work Phone: [facility] Work Phone: Start: 10-01-2022 End: 10-01-2022 Dr. Nathaly Lainez Work Phone: [facility]-Emergency Department Start: 09-18-2022 End: 09-18-2022 Emergency department patient visit Dr. Nathaly Lainez Work Phone: [facility] Work Phone: Start: 09-18-2022 End: 09-18-2022 Dr. Nathaly Lainez Work Phone: [facility]-Emergency Department Start: 09-11-2022 End: 09-11-2022 Emergency department patient visit Dr. Nathaly Lainez Work Phone: [facility] Work Phone: Start: 09-11-2022 End: 09-11-2022 Dr. Nathaly Lainez Work Phone: [facility]-Emergency Department Start: 09-09-2022 End: 09-10-2022 Emergency department patient visit Dr. Nathaly Lainez Work Phone: [facility]-Emergency Department Start: 09-09-2022 End: 09-10-2022 Dr. Nathaly Lainez Work Phone: [facility]-Emergency Department Start: 09-08-2022 Non-patient / Non-visit Dr. Rashida Lainez Work Phone: [facility] Start: 09-08-2022 End: 09-08-[address] Nathaly Lainez Work Phone: [facility] Work Phone: Start: 09-08-2022 End: 09-08-[address] Nathaly Lainez Work Phone: [facility]-Cardiovascular Services Start: 09-08-2022 End: 09-08-2022 Dr. Nathaly Lainez Work Phone: [facility] Start: 09-05-2022 Non-patient / Non-visit Dr. Rashida Lainez Work Phone: [facility] Start: 09-05-2022 End: 09-05-2022 Emergency department patient visit Dr. Nathaly Lainez Work Phone: [facility]-Emergency Department Start: 09-05-2022 End: 09-05-2022 Dr. Nathaly Lainez Work Phone: [facility]-Emergency Department Start: 09-04-2022 ambulatory JEISON FORDE DPM Faci lity:R Start: 09-02-2022 Non-patient / Non-visit Dr. Rashida Lainez Work Phone: [facility] Inpatient Physicians Start: 09-02-2022 Dr. Nathaly reyes Work Phone: [facility] Start: 09-01-2022 Non-patient / Non-visit Dr. Rashida Lainez Work Phone: [facility] Start: 09-01-2022 Dr. Nathaly reyes Work Phone: [facility]patient [facility]icians Start: 08-31-2022 Non-patient / Non-visit Dr. Rashida Lainez Work Phone: [facility] Inpatient Physicians Start: 08-31-2022 Dr. Nathaly reyes Work Phone: [facility] Inpatient Physicians Start: 08-31-2022 Non-patient / Non-visit Dr. Rashida Lainez Work Phone: [facility] Start: 08-31-2022 Dr. Nathaly reyes Work Phone: [facility] Start: 08-30-2022 Non-patient / Non-visit Dr. Rashida Lainez Work Phone: [facility] Inpatient Physicians Start: 08-30-2022 Dr. Nathaly reyes Work Phone: [phone] [place] [address] Inpatient Physicians Start: 08-30-2022 End: 09-02-2022 Evaluation and management of inpatient Dr. Nathaly Lainez Work Phone: [phone] [address] [place], [place] [address]Medical Surgical 3 Start: 08-30-2022 End: 09-02-2022 Dr. Nathaly Lainez Work Phone: [phone] [address] [place], [place] [address]Medical Surgical 3 Start: 08-23-2022 End: 08-23-[address] Nathaly Lainez Work Phone: [phone] [place] [address] Vascular Surgery Start: 08-23-2022 End: 08-23-2022 Dr. Nathaly Lainez Work Phone: [phone] [place] [address] Vascular Surgery Start: 08-17-2022 Non-patient / Non-visit Dr. Rashida Lainez Work Phone: [phone] [place] [address]-BVS Start: 08-17-2022 End: 08-17-[address] Nathaly Lainez Work Phone: [phone] [place] [address]-Cardiovascular Services Start: 08-17-2022 End: 08-17-2022 Dr. Nathaly Lainez Work Phone: [phone] [place] [address]-[facility]S Start: 08-14-2022 End: 08-14-2022 Emergency department patient visit Dr. Nathaly Lainez Work Phone: [phone] [place] [address]-Emergency Department Start: 08-14-2022 End: 08-14-2022 Dr. Nathaly Lainez Work Phone: [phone] [place] [address]-Emergency Department Start: 08-10-2022 Non-patient / Non-visit Dr. Rashida Lainez Work Phone: [phone] [place] [address]-[facility]S Start: 08-10-2022 Dr. [facility] Start: 08-10-2022 End: 08-10-2022 Admission to same day surgery center Dr. Nathaly Lainez Work Phone: [facility]-Assistant Manager Airside Operations/Special Procedures Start: 08-10-2022 End: 08-10-[address] Nathaly Lainez Work Phone: [facility] Work Phone: Start: 08-10-2022 End: 08-10-2022 Dr. Nathaly Lainez Work Phone: [facility]-Assistant Manager Airside Operations/Special Procedures Start: 08-09-2022 End: 08-09-[address] Nathaly Lainez Work Phone: [facility] Vascular Surgery Start: 08-09-2022 End: 08-09-2022 Dr. Nathaly Lainez Work Phone: [facility] Vascular Surgery Start: 08-06-2022 End: 08-06-2022 Emergency department patient visit Dr. Nathaly Lainez Work Phone: [facility]-Emergency Department Start: 08-06-2022 End: 08-06-2022 Dr. Nathaly Lainez Work Phone: [facility]-Emergency Department Start: 08-03-2022 End: 08-03-2022 Emergency department patient visit Dr. Nathaly Lainez Work Phone: [facility]-Emergency Department Start: 08-03-2022 End: 08-03-2022 Dr. Nathaly Lainez Work Phone: [facility]-Emergency Department Start: 07-25-2022 End: 07-25-2022 Emergency department patient visit Dr. Nathaly Lainez Work Phone: [facility]-Emergency Department Start: 07-25-2022 End: 07-25-2022 Dr. Nathaly Lainez Work Phone: [facility]-Emergency Department Start: 06-29-2022 End: 06-29-[address] Nathaly Lainez Work Phone: [facility]-Outpatient Bone Densitometry Start: 06-29-2022 End: 06-29-2022 Dr. Nathaly Lainez Work Phone: [facility]-Outpatient Bone Densitometry Start: 06-21-[address] Nathaly Lainez Work Phone: [facility]-Physical Therapy Start: 06-21-2022 Dr. Nathaly reyes Work Phone: [facility]-Physical Therapy Start: 06-08-2022 End: 06-08-2022 Postop follow up visit related to original px Jerry Jones PA-C Work Phone: [facility] [place] Comment on above: Closed 3-part fractu re of proximal humerus, right, with routine healing, subsequent encounter (Primary Dx) Start: 05-19-2022 End: 05-19-2022 Emergency department patient visit Dr. Nathaly Lainez Work Phone: [facility]-Emergency Department Start: 05-19-2022 End: 05-19-2022 Dr. Nathaly Lainez Work Phone: [facility]-Emergency Department Start: 05-09-2022 End: 05-10-2022 Emergency department patient visit Dr. Nathaly Lainez Work Phone: [facility]-Emergency Department Start: 05-02-2022 End: 05-03-2022 ambulatory [facility] Start: 04-24-2022 End: 04-24-[address] Nathaly Lainez Work Phone: [facility] Start: 04-18-2022 End: 04-18-2022 Emergency department patient visit [facility]gency [facility] Start: 04-17-2022 End: 04-17-2022 Emergency department patient visit [facility] Start: 03-27-2022 End: 03-27-2022 Emergency department patient visit [facility] Start: 08-13-2021 End: 08-13-2021 Emergency department patient visit Alex Tapia [facility] Emergency 16 Start: 08-25-2019 End: 08-25-2019 Patient encounter procedure [facility] Start: 07-20-2018 End: 07-21-2018 Patient encounter procedure [facility] Start: 06-08-2018 End: 06-12-2018 Evaluation and management of inpatient [facility] Start: 12-14-2017 End: 12-14-2017 Emergency department patient visit UNKNOWN PROVIDER [facility] Start: 11-30-2017 End: 12-05-2017 Patient encounter procedure [facility] Procedures Date Procedure Procedure Detail Performing Clinician Start: 12-12-2024 X-ray of ankle, three or more views Zohreh Terence SHANK ARCHER-C Work Phone: Start: 12-12-2024 X-ray of foot, three or more views Zohreh Terence [employer]CHER-C Work Phone: Start: 09-29-2024 Blood count smear mcrscp w/mnl difrntl wbc count Zohreh Mckeon [employer]CHER-C Work Phone: Start: 09-29-2024 Estimated creatinine clearance Zohreh Mckeon [employer]-C Work Phone: Start: 09-29-2024 Mean corpuscular hemoglobin concentration determination Zohreh Terence [employer]CHER-C Work Phone: Start: 09-29-2024 Nucleated red blood cell count procedure Zohreh Terence [employer]-C Work Phone: Start: 09-29-2024 Platelet mean volume determination Zohreh Terence [employer]CHER-C Work Phone: Start: 09-29-2024 Triacylglycerol lipase measurement Zohreh Terence [employer]-C Work Phone: Start: 09-29-2024 Urine microscopy: red cells Zohrehdmitriy Mckeon [employer]CHER-C Work Phone: Start: 09-29-2024 Urnls dip stick/tablet reagent auto microscopy Zohreh Terence [employer]ER-C Work Phone: Start: 09-21-2024 Urine microscopy: red cells Zohreh Mckeon [employer]-C Work Phone: Start: 09-21-2024 Urnls dip stick/tablet reagent auto microscopy Zohreh Mckeon [employer]-C Work Phone: Start: 09-21-2024 Estimated creatinine clearance Zohreh Mckeon [employer]-C Work Phone: Start: 09-21-2024 Triacylglycerol lipase measurement Zohreh Mckeon [employer]-C Work Phone: Start: 09-21-2024 Blood count smear mcrscp w/mnl difrntl wbc count Zohreh Mckeon [employer]-C Work Phone: Start: 09-21-2024 Mean corpuscular hemoglobin concentration determination Zohreh Mckeon [employer]-C Work Phone: Start: 09-21-2024 Nucleated red blood cell count procedure Zohreh Mckeon [employer]-C Work Phone: Start: 09-21-2024 Platelet mean volume determination Zohreh Mckeon [employer]-C Work Phone: Start: 09-16-2024 Blood count smear mcrscp w/mnl difrntl wbc count Zohreh Mckeon [employer]-C Work Phone: Start: 09-16-2024 Mean corpuscular hemoglobin concentration determination Zohreh Mckeon [employer]-C Work Phone: Start: 09-16-2024 Nucleated red blood cell count procedure Zohreh Mckeon [employer]-C Work Phone: Start: 09-16-2024 Platelet mean volume determination Zohreh Mckeon [employer] Work Phone: Start: 09-16-2024 Estimated creatinine clearance Zohreh Mckeon [employer] Work Phone: Start: 09-12-2024 Urine microscopy: red cells Zohreh Mckeon [employer] Work Phone: Start: 09-12-2024 Urnls dip stick/tablet reagent auto microscopy Zohreh Mckeon [employer]-C Work Phone: Start: 09-12-2024 Urine culture [facility] Work Phone: Start: 09-11-2024 Plain X-ray abdomen [facility] Work Phone: Start: 09-09-2024 Urine culture [facility] Work Phone: Start: 09-09-2024 Serum inorganic phosphate measurement Zohreh Mckeon [employer]-C Work Phone: Start: 09-08-2024 Blood culture [facility] Work Phone: Start: 09-08-2024 Clostridium difficile detection [facility] Work Phone: Start: 09-08-2024 Nucleic acid assay [facility] Work Phone: Start: 09-08-2024 Iadna-dna/rna gi pthgn multiplex probe tq 6-11 Zohreh Mckeon [employer]-C Work Phone: Start: 09-08-2024 Parathyroid hormone measurement Zohreh Mckeon [employer] Work Phone: Start: 09-08-2024 Vitamin D, 25-hydroxy measurement Zohreh Mckeon [employer] Work Phone: Start: 09-08-2024 Calcium measurement Zohreh Mckeon [employer] Work Phone: Start: 09-07-2024 Computed tomography of abdomen and pelvis with intravenous contrast [facility] Work Phone: Start: 09-07-2024 Triacylglycerol lipase measurement Zohreh Mckeon [employer]-C Work Phone: Start: 09-05-2024 Blood count smear mcrscp w/mnl difrntl wbc count Zohreh Mckeon [employer] Work Phone: Start: 09-05-2024 Estimated creatinine clearance Zohreh Mckeon [employer] Work Phone: Start: 09-05-2024 Mean corpuscular hemoglobin concentration determination Zohreh Mckeon [employer] Work Phone: Start: 09-05-2024 Nucleated red blood cell count procedure Zohreh Mckeon [employer]-C Work Phone: Start: 09-05-2024 Platelet mean volume [...] pthgn multiplex probe tq 6-11 Zohreh Mckeon [facility] Work Phone: Start: 08-29-2024 Clostridium difficile detection [facility] Work Phone: Start: 08-29-2024 Nucleic acid assay [facility] Work Phone: Start: 08-27-2024 MRI of lumbar spine [facility] Work Phone: Start: 08-27-2024 Calculation of international normalized ratio Zohreh WOOD Work Phone: Start: 08-26-2024 CT angiography of lower limb [facility] Work Phone: Start: 08-26-2024 Assay of lactate Zohreh Mckeon [facility] Work Phone: Start: 08-26-2024 Plain chest X-ray [facility] Work Phone: Start: 08-01-2024 Computed tomography of abdomen and pelvis with intravenous contrast [facility] Work Phone: Start: 08-01-2024 Urine culture [facility] Work Phone: Start: 07-02-2024 CT of abdomen and pelvis with oral contrast [facility] Work Phone: Start: 06-29-2024 Plain chest X-ray [facility] Work Phone: Start: 06-29-2024 Computed tomography of abdomen and pelvis with intravenous contrast [facility] Work Phone: Start: 06-29-2024 Urine culture [facility] Work Phone: Start: 04-25-2024 Computed tomography of abdomen and pelvis with intravenous contrast [facility] Work Phone: Start: 10-15-2023 Plain x-ray of pelvis and lower extremity Start: 09-02-2023 Antibody screen IBETH ALEJANDRO Comment on above: Order Comment: Specimen Type: BLOOD SPEC IMEN Ordering Facility: [facility] Address: [address] [place] [address] Performed By: #### [id number] #### [facility] CLIA [id number] [address] [place] [address] [place] Start: 09-02-2023 Plain chest X-ray [facility] Work Phone: Start: 09-02-2023 Plain x-ray of pelvis and lower extremity [facility] Work Phone: Start: 06-19-2023 Plain x-ray of pelvis and lower extremity [facility] Work Phone: Start: 06-19-2023 Radiologic examination of knee [facility] Work Phone: Start: 06-15-2023 Radiography of ankle [facility] Work Phone: Start: 06-12-2023 CT angiography of chest with contrast [facility] Work Phone: Start: 05-26-2023 Plain chest X-ray [facility] Work Phone: Start: 05-22-2023 X-ray of both feet [facility] Work Phone: Start: 05-03-2023 SARS-CoV-2 & FLU Antigen (Rapid) [facility] Work Phone: Start: 05-03-2023 Viral antigen assay [facility] Work Phone: Start: 05-03-2023 Plain chest X-ray [facility] Work Phone: Start: 02-02-2023 CT angiography of chest with contrast [facility] Work Phone: Start: 02-02-2023 Plain chest X-ray [facility] Work Phone: Start: 01-01-2023 SARS-CoV-2 & FLU Antigen (Rapid) [facility] Work Phone: Start: 01-01-2023 CT angiography of chest with contrast [facility] Work Phone: Start: 10-01-2022 Diagnostic radiography [...] DTaP,Tdap,Td Vaccine (2 - Td or Tdap) [facility] Start: 12-12-2024 [facility] Start: 09-29-2024 End: 09-29-2024 [facility] Start: 09-21-2024 [facility] Start: 09-16-2024 Patient discharge [facility] Start: 09-16-2024 [facility] Start: 09-14-2024 Consultation [facility] Start: 09-14-2024 Care planning and pr oblem solving actions [facility] Start: 09-11-2024 Consultation [facility] Start: 09-09-2024 Admission procedure [facility] Start: 09-08-2024 [facility] Start: 09-07-2024 Following clinical pathway protocol [facility] Start: 09-07-2024 Assessment of risk o f venous thromboembolism [facility] Start: 09-07-2024 Care regimes management [facility] Start: 09-07-2024 Fall prevention [facility] Start: 09-07-2024 Inhalation therapy procedure [facility] Start: 09-07-2024 Insertion of cathete r into peripheral vein [facility] Start: 09-07-2024 Measuring intake and output [facility] Start: 09-07-2024 Notification of physician [facility] Start: 09-07-2024 Providing care accor ding to standard [facility] Start: 09-07-2024 Provision of activit y privileges [facility] Start: 09-07-2024 Referral to occupati onal therapist [facility] Start: 09-07-2024 Referral to service [facility] Start: 09-07-2024 Tobacco use cessatio n education [facility] Start: 09-07-2024 End: 09-07-2024 [facility] Start: 09-07-2024 Verification routine [facility] Start: 09-07-2024 Admission procedure [facility] Start: 09-07-2024 Hospital admission, emergency, from emergency room, medical nature [facility] Start: 09-07-2024 Serum inorganic phos phate measurement [facility] Start: 09-07-2024 Patient referral to dietitian [facility] Start: 09-05-2024 [facility] Start: 09-02-2024 Referral to service [facility] Start: 09-02-2024 Patient discharge [facility] Start: 09-01-2024 [facility] Start: 08-27-2024 [facility] Start: 08-26-2024 Following clinical pathway protocol [facility] Start: 08-26-2024 Assessment of risk o f venous thromboembolism [facility] Start: 08-26-2024 Care regimes management [facility] Start: 08-26-2024 Incentive spirometry [facility] Start: 08-26-2024 Insertion of cathete r into peripheral vein [facility] Start: 08-26-2024 Measuring intake and output [facility] Start: 08-26-2024 Notification of physician [facility] Start: 08-26-2024 Providing care accor ding to [facility] Start: 08-26-2024 Referral to occupati onal therapist [facility] Start: 08-26-2024 Referral to service [facility] Start: 08-26-2024 Referral to vascular surgeon [facility] Start: 08-26-2024 Vital signs measurements [facility] Start: 08-26-2024 End: 08-26-2024 [facility] Start: 08-26-2024 Verification routine [facility] Start: 08-26-2024 Admission procedure [facility] Start: 08-26-2024 Hospital admission, emergency, from emergency room, medical nature [facility] Start: 08-26-2024 Patient referral to dietitian [facility] Start: 08-01-2024 [facility] Start: 07-03-2024 Patient discharge [facility] Start: 07-01-2024 Consultation [facility] Start: 06-30-2024 [facility] Start: 06-30-2024 [facility] Start: 06-30-2024 Referral to occupati onal therapist [facility] Start: 06-30-2024 Referral to service [facility] Start: 06-29-2024 Assessment of risk o f venous thromboembolism [facility] Start: 06-29-2024 Care regimes management [facility] Start: 06-29-2024 Insertion of cathete r into peripheral vein [facility] Start: 06-29-2024 Measuring intake and output [facility] Start: 06-29-2024 Notification of physician [facility] Start: 06-29-2024 Providing care accor ding to [facility] Start: 06-29-2024 Provision of activit y privileges [facility] Start: 06-29-2024 End: 06-29-2024 [facility] Start: 06-29-2024 End: 06-29-2024 Following clinical pathway protocol [facility] Start: 06-29-2024 Admission procedure [facility] Start: 04-29-2024 Patient discharge [facility] Start: 04-29-2024 Care planning and pr oblem solving actions [facility] Start: 04-29-2024 [facility] Start: 04-28-2024 Wound care [facility] Start: 04-26-2024 End: 04-27-2024 [facility] Start: 04-25-2024 Care planning and pr oblem solving actions [facility] Start: 04-25-2024 Assessment of risk o f venous thromboembolism [facility] Start: 04-25-2024 Care regimes management [facility] Start: 04-25-2024 Consultation for treatment [facility] Start: 04-25-2024 Inhalation therapy procedure [facility] Start: 04-25-2024 Insertion of cathete r into peripheral vein [facility] Start: 04-25-2024 Notification of physician [facility] Start: 04-25-2024 Patient referral to dietitian [facility] Start: 04-25-2024 Providing care accor ding to standard [facility] Start: 04-25-2024 Provision of activit y privileges [facility] Start: 04-25-2024 Referral to occupati onal therapist [facility] Start: 04-25-2024 Referral to service [facility] Start: 04-25-2024 End: 04-25-2024 [facility] Start: 04-25-2024 Care of central veno us catheter [facility] Start: 04-25-2024 Following clinical pathway protocol [facility] Start: 04-25-2024 Admission procedure [facility] Start: 04-25-2024 Patient referral to dietitian [facility] Start: 02-21-2024 End: 02-21-2024 Patient encounter procedure 02/21/2024 1:30 PM EDT Office Visit Endocrine Surgery [address] [place] [address] Gerda Rivero MD [address] [address] [facility] Comment on above: [facility] Start: 02-03-2024 Covid-19 Vaccine ( season) Covid-19 Vaccine ( season) [facility] Start: 02-03-2024 Influenza vaccination Influenza Vacc ine (#1) [facility] Start: 12-04-2023 Hemoglobin A1c measurement HbA1C [facility] Start: 10-23-2023 End: 10-23-2023 Patient encounter procedure 10/23/2023 1:15 PM EDT Office Visit [facility] [address] [place] [address] Gadiel Washington PA-C [address] [place] [address] PO [facility] Comment on above: PO Start: 09-02-2023 End: 09-02-2023 [facility] Start: 06-19-2023 [facility] Start: 06-16-2023 Patient discharge [facility] Start: 06-15-2023 Referral to manager foreign [facility] Start: 06-15-2023 Care regimes management [facility] Start: 06-13-2023 Blood chemistry [facility] Start: 06-13-2023 Following clinical pathway protocol [facility] Start: 06-13-2023 Assessment of risk o f venous thromboembolism [facility] Start: 06-13-2023 Fluid restriction [facility] Start: 06-13-2023 Insertion of cathete r into peripheral vein [facility] Start: 06-13-2023 Measuring intake and output [facility] Start: 06-13-2023 Oxygen therapy [facility] Start: 06-13-2023 Providing care accor ding to standard [facility] Start: 06-13-2023 Provision of activit y privileges [facility] Start: 06-13-2023 Referral to occupati onal therapist [facility] Start: 06-13-2023 Referral to service [facility] Start: 06-13-2023 End: 06-13-2023 [facility] Start: 06-13-2023 Verification routine [facility] Start: 06-13-2023 Admission procedure [facility] Start: 06-13-2023 Patient referral to dietitian [facility] Start: 06-12-2023 [facility] Start: 05-26-2023 [facility] Start: 05-11-2023 Blood chemistry [facility] Start: 05-10-2023 Blood chemistry [facility] Start: 05-09-2023 Blood chemistry [facility] Start: 05-08-2023 Blood chemistry [facility] Start: 05-07-2023 Patient discharge [facility] Start: 05-04-2023 Patient referral [facility] Work Phone: Start: 05-03-2023 [facility] Start: 05-03-2023 Referral to laundry housekeeping aide [facility] Start: 05-03-2023 Ambulation without limitation [facility] Start: 05-03-2023 Assessment of risk o f venous thromboembolism [facility] Start: 05-03-2023 Care regimes management [facility] Start: 05-03-2023 Inhalation therapy procedure [facility] Start: 05-03-2023 Insertion of cathete r into peripheral vein [facility] Start: 05-03-2023 Measuring intake and output [facility] Start: 05-03-2023 Notification of physician [facility] Start: 05-03-2023 Oxygen therapy [facility] Start: 05-03-2023 Providing care accor ding to standard [facility] Start: 05-03-2023 Referral to occupati onal therapist [facility] Start: 05-03-2023 Referral to service [facility] Start: 05-03-2023 [facility] Start: 05-03-2023 Following clinical pathway protocol [facility] Start: 05-03-2023 Verification routine [facility] Start: 05-03-2023 Admission procedure [facility] Start: 05-03-2023 Hospital admission, emergency, from emergency room, medical nature [facility] Start: 05-03-2023 [facility] Start: 05-03-2023 [facility] Start: 05-03-2023 Consultation [facility] Start: 05-03-2023 Patient referral to dietitian [facility] Start: 02-03-2023 Patient discharge [facility] Start: 02-02-2023 Following clinical pathway protocol [facility] Start: 02-02-2023 Ambulation without limitation [facility] Start: 02-02-2023 Assessment of risk o f venous thromboembolism [facility] Start: 02-02-2023 Care regimes management [facility] Start: 02-02-2023 Insertion of cathete r into peripheral vein [facility] Start: 02-02-2023 Measuring intake and output [facility] Start: 02-02-2023 Notification of physician [facility] Start: 02-02-2023 Providing care accor ding to standard [facility] Start: 02-02-2023 [facility] Start: 02-02-2023 Oxygen therapy [facility] Start: 02-02-2023 Verification routine [facility] Start: 02-02-2023 Admission procedure [facility] Start: 02-02-2023 [facility] Start: 02-02-2023 Covid-19 Vaccine () Covid-19 Vaccine () [facility] Start: 02-02-2023 Brain natriuretic pe ptide measurement [facility] Start: 02-02-2023 Patient referral to [facility] Start: 01-03-2023 Patient discharge [facility] Start: 01-01-2023 Ambulation without limitation [facility] Start: 01-01-2023 Assessment of risk o f venous thromboembolism [facility] Start: 01-01-2023 Care regimes management [facility] Start: 01-01-2023 Catheterization of vein [facility] Start: 01-01-2023 Insertion of cathete r into peripheral vein [facility] Start: 01-01-2023 Measuring intake and output [facility] Start: 01-01-2023 Notification of physician [facility] Start: 01-01-2023 Providing care accor ding to standard [facility] Start: 01-01-2023 [facility] Start: 01-01-2023 Admission procedure [facility] Start: 01-01-2023 Following clinical pathway protocol [facility] Start: 01-01-2023 [facility] Start: 09-02-2022 Patient discharge [facility] Start: 09-01-2022 Referral to service [facility] Start: 09-01-2022 Wound care [facility] Start: 09-01-2022 [facility] Start: 08-31-2022 Amputation of toe Amputation T oe/Foot (Right) [facility] Start: 08-31-2022 [facility] Start: 08-31-2022 Blood chemistry [facility] Start: 08-30-2022 Care regimes management [facility] Start: 08-30-2022 Notification of physician [facility] Start: 08-30-2022 [facility] Start: 08-30-2022 Assessment of risk o f venous thromboembolism [facility] Start: 08-30-2022 Consultation [facility] Start: 08-30-2022 Consultation for treatment [facility] Start: 08-30-2022 Insertion of cathete r into peripheral vein [facility] Start: 08-30-2022 Patient referral to [facility] Start: 08-30-2022 Providing care accor ding to standard [facility] Start: 08-30-2022 Referral to service [facility] Start: 08-30-2022 Tobacco use cessatio n education [facility] Start: 08-30-2022 [facility] Start: 08-30-2022 Following clinical pathway protocol [facility] Start: 08-30-2022 Admission procedure [facility] Start: 08-30-2022 Verification routine [facility] Start: 08-30-2022 [facility] Start: 08-30-2022 End: 08-30-2022 Blood culture [facility] Start: 08-09-2022 Patient referral [facility] Work Phone: Start: 07-20-2022 End: 07-20-2022 Patient encounter procedure 07/20/2022 Office Visit Orthopedic Surgery Jerry Jones PA-C [facility] [place] [address] [place] [address] [facility] [place] Start: 07-20-2022 End: 07-20-2022 Documentation procedure 07/20/2022 Documentation Orthopedic Surgery [facility] [place] Start: 05-19-2022 [facility] Start: 02-02-2022 Influenza vaccination Influenza Vacc ine (#1) [facility] Start: 08-23-2021 Shingrix Vaccine (1 of 2) Mcmillan grix Vaccine (1 of 2) [facility] Start: 08-23-2021 Zoster Vaccines (1 of 2) Zoste r Vaccines (1 of 2) [facility] Start: 02-23-2021 COVID-19 Vaccine (3 - Booster for Moderna series) COVID-19 Vaccine (3 - Booster for Moderna series) [facility] Start: 2020 Hepatitis B surface antibody level LDL Cholesterol [facility] Start: 03-14-2020 Annual PCP Team [place] yamil Disease Visit Annual PCP Team Chronic Disease Visit [facility] Start: 06-19-2019 Screening for malign ant neoplasm of cervix [facility] Start: 06-18-2019 Screening for malign ant neoplasm of cervix Pap Testing [facility] Start: 01-31-2019 Screening for malign ant neoplasm of colon [facility] Start: 08-23-2016 Screening for malign ant neoplasm of colon [facility] Start: 10-14-2013 Screening for malign ant neoplasm of breast Mammogram Screening [facility] Start: 2011 Screening for malign ant neoplasm of breast Mammogram [facility] Start: 08-23-2001 Screening for malign ant neoplasm of cervix [facility] Start: 08-23-1992 Screening for malign ant neoplasm of cervix Pap Smear [facility] Start: 08-23-1990 DTaP/Tdap/Td Vaccine s (1 - Tdap) DTaP/Tdap/Td Vaccines (1 - Tdap) [facility] Start: 08-23-1990 Hepatitis B Vaccine (1 of 3 - 19+ 3-dose series) Hepatitis B Vaccine (1 of 3 - 19+ 3-dose series) [facility] Start: 08-23-1990 Urine screening for protein Diabetes: Urine Protein Screening [facility] Start: 08-23-1989 BP Controlled (<130/80) BP Controlle d (<130/80) [facility] Start: 08-23-1989 Hepatitis C screening Hepatitis C Sc reening [facility] Start: 08-23-1989 HIV screening HIV Screening [facility] Start: 08-23-1981 Diabetic foot examination [facility] Start: 08-23-1981 Glaucoma screening [facility] Start: 08-23-1981 Hepatitis B screening Urine Albumin:Creatinine Ratio [facility] Start: 08-23-1981 Preventive dental service Diabetes: Dental Exam [facility] Start: 08-23-1977 Pneumococcal vaccination Pneum ococcal Vaccine (1 of 2 - PCV) [facility] Start: 08-23-1977 Pneumococcal Vaccine : Pediatrics (0 to 5 Years) and At-Risk Patients (6 to 64 Years) (1 - PCV) Pneumococcal Vaccine: Pediatrics (0 to 5 Years) and At-Risk Patients (6 to 64 Years) (1 - PCV) [facility] Start: 08-23-1972 MMR Vaccines (1 of 1 - Standard series) MMR Vaccines (1 of 1 - Standard series) [facility] Start: 1971 Hemoglobin A1c measurement Diabetes: Hemoglobin A1C [facility] Start: 1971 Hepatitis B Vaccines (1 of 3 - 3-dose series) Hepatitis B Vaccines (1 of 3 - 3-dose series) [facility] Start: 1971 HIV screening HIV Screening [facility] Start: 1971 Lipid panel Lipid Panel [facility] Start: 1971 Screening for malign ant neoplasm of colon [facility] Anion gap measurement [facility] Anion gap measurement [facility] Ankle brachial press ure index [facility] Ankle brachial press ure index [facility] Bacteria identified in Blood by Culture Blood Culture [facility] Bacteria identified in Blood by Culture Blood Culture [facility] Bacteria identified in Urine by Culture Urine Culture [facility] Bilirubin measuremen t, urine [facility] BUN/Creatinine ratio [facility] BUN/Creatinine ratio [facility] Calcium [Mass/volume ] in 24 hour Urine [facility] Calcium [Mass/volume ] in Serum or Plasma [facility] Calcium [Mass/volume ] in Serum or Plasma [facility] Carbon dioxide, tota l [Moles/volume] in Serum or Plasma [facility] Carbon dioxide, tota l [Moles/volume] in Serum or Plasma [facility] Chloride [Moles/volu me] in Serum or Plasma [facility] Chloride [Moles/volu me] in Serum or Plasma [facility] Creatinine [Moles/vo lume] in Serum or Plasma [facility] Creatinine [Moles/vo lume] in Serum or Plasma [facility] Glucose [Mass/volume ] in Serum or Plasma [facility] Glucose [Mass/volume ] in Serum or Plasma [facility] Hematocrit [Volume Fraction] of Blood [facility] Hematocrit [Volume Fraction] of Blood [facility] Hemoglobin [Mass/vol ume] in Blood [facility] Hemoglobin [Mass/vol ume] in Blood [facility] Hemoglobin [Presence ] in Urine [facility] Hemoglobin A1c/Hemoglobin.total in Blood [facility] Lactic acid measurement [facility] Leukocytes [#/volume ] in Blood [facility] Leukocytes [#/volume ] in Blood [facility] Magnesium [Mass/volu me] in Serum or Plasma [facility] Mean corpuscular hemoglobin concentration determination [facility] Mean corpuscular hemoglobin concentration determination [facility] Mean corpuscular hemoglobin determination [facility] Mean corpuscular hemoglobin determination [facility] Measurement of keton es in urine using dipstick [facility] Measurement of renal function [facility] Measurement of renal function [facility] Microscopic urinalysis [facility] Neutrophil count [facility] Neutrophil count [facility] Neutrophil percent differential count [facility] Neutrophil percent differential count [facility] Patient Education [facility] Work Phone: Patient referral [facility] Work Phone: pH of Urine [facility] Platelets [#/volume] in Blood [facility] Platelets [#/volume] in Blood [facility] Potassium [Moles/vol ume] in Serum or Plasma [facility] Potassium [Moles/vol ume] in Serum or Plasma [facility] Radionuclide gastric emptying study [facility] Red blood cell count [facility] Red blood cell count [facility] Red cell distributio n width determination [facility] Red cell distributio n width determination [facility] Sodium [Moles/volume ] in Serum or Plasma [facility] Sodium [Moles/volume ] in Serum or Plasma [facility] Specific gravity of Urine [facility] Urea nitrogen [Mass/volume] in Serum or Plasma [facility] Urea nitrogen [Mass/volume] in Serum or Plasma [facility] Urine blood test [facility] Urine dipstick for glucose [facility] Urine dipstick for leukocyte esterase [facility] Urine dipstick for nitrite [facility] Urine dipstick for protein [facility] Urine examination [facility] Urine microscopy: epithelial cells [facility] Urine Microscopy: wh ite cells [facility] Urobilinogen [Presen ce] in Urine [facility] US Lower extremity artery [facility] Immunizations Immunization Date Immunization Notes Care Provider [facility] 06-14-2023 influenza, injectabl e, quadrivalent, preservative free [facility] Work Phone: [facility] 06-14-2023 influenza virus vaccine, unspecified formulation Gerda Rivero MD Work Phone: [facility] 09-01-2022 influenza, injectabl e, quadrivalent, preservative free [facility] Work Phone: [facility] 09-01-2022 influenza, seasonal, injectable Dr. Nathaly Lainez Work Phone: [facility] 08-05-2021 influenza, injectabl e, quadrivalent, preservative free [facility] Work Phone: [facility] 08-05-2021 influenza, seasonal, injectable [facility] 08-05-2021 influenza virus vaccine, unspecified formulation Jerry Jones PA-C Work Phone: [facility] 12-29-2020 Covid (Moderna) Dr. Nathaly Lowery Work Phone: [facility] 11-30-2020 Covid (Moderna) Dr. Nathaly Lowery Work Phone: [facility] 07-20-2018 influenza, injectabl e, quadrivalent, preservative free [facility] Work Phone: [facility] 07-20-2018 influenza, seasonal, injectable Dr. Nathaly Lainez Work Phone: [facility] Payers Date Payer Category Payer Self-pay [id number] 2022 Medicaid [id number] 2012 Medicaid [id number] 2012 Unknown [id number] 1971 Unknown [id number] 2.840.1.725789.3.579.2.903 1971 Unknown [id number] .16840.1.124404.3.579.2.627 1971 Unknown [id number] .840.1.438131.3.579.2.627 Unknown [employer] Unknown [id number] 2.16840.1.879253.3.579.2.462 Unknown [id number] 2.16840.1.713089.3.579.2.462 Unknown [id number] 2.16.840.1.854287.3.579.2.462 Unknown [id number] 2.16.840.1.116617.3.579.2.462 Unknown [id number] 2.16.840.1.084989.3.579.2.462 Unknown [id number] 2.16.840.1.582724.3.579.2.462 Unknown [id number] 2.16840.1.884369.3.579.2.462 Unknown [id number] 2.16840.1.847787.3.579.2.462 Unknown [id number] 2.16.840.1.797639.3.579.2.462 Unknown [id number] 2.16.840.1.089006.3.579.2.462 Unknown [id number] 2.16.840.1.750647.3.579.2.462 Unknown [id number] 2.16.840.1.211129.3.579.2.462 Unknown [id number] 2.16.840.1.153039.3.579.2.462 Unknown [id number] 2.16.840.1.603710.3.579.2.462 Unknown [id number] 2.16.840.1.890939.3.579.2.462 Unknown [id number] 2.16.840.1.361798.3.579.2.462 Unknown [id number] 2.16.840.1.035782.3.579.2.462 Unknown [id number] 2.16.840.1.804829.3.579.2.462 Unknown [id number] 2.16.840.1.084928.3.579.2.462 Unknown [id number] 2.16.840.1.063204.3.579.2.462 Unknown [id number] 2.16.840.1.262660.3.579.2.462 Unknown [id number] 2.16.840.1.394524.3.579.2.462 Unknown [id number] 2.16.840.1.581782.3.579.2.462 Unknown [id number] 2.16.840.1.378028.3.579.2.462 Unknown [id number] 2.16.840.1.357584.3.579.2.462 Unknown [id number] 2.16.840.1.269465.3.579.2.462 Unknown [id number] 2.16.840.1.651472.3.579.2.462 Unknown [id number] 2.16.840.1.825924.3.579.2.462 Unknown [id number] 2.16.840.1.297167.3.579.2.462 Unknown [id number] 2.16.840.1.917498.3.579.2.462 Unknown [id number] 2.16.840.1.399390.3.579.2.462 Unknown [id number] 2.16.840.1.305183.3.579.2.462 Unknown [id number] 2.16.840.1.629635.3.579.2.462 Unknown [id number] 2.16.840.1.923096.3.579.2.462 Unknown [id number] 2.16.840.1.979483.3.579.2.462 Unknown [id number] 2.16.840.1.884998.3.579.2.462 Unknown [id number] 2.16.840.1.198483.3.579.2.462 Unknown [id number] 2.16.840.1.816012.3.579.2.462 Unknown [id number] 2.16.840.1.375951.3.579.2.462 Unknown [id number] 2.16.840.1.931768.3.579.2.462 Unknown [id number] 2.16.840.1.221737.3.579.2.462 Unknown [id number] 2.16.840.1.284921.3.579.2.462 Unknown [id number] 2.16.840.1.911495.3.579.2.462 Unknown [id number] 2.16.840.1.042691.3.579.2.462 Unknown [id number] 2.16.840.1.598940.3.579.2.462 Unknown [id number] 2.840.1.606945.3.579.2.462 Unknown [id number] 2.840.1.227637.3.579.2.462 Unknown [id number] 2.840.1.704647.3.579.2.462 Unknown [id number] 2.840.1.378658.3.579.2.462 Unknown [id number] 2.840.1.304442.3.579.2.462 Unknown [id number] 2.840.1.062640.3.579.2.462 Unknown [id number] 2.840.1.062960.3.579.2.462 Unknown [id number] 2.840.1.201978.3.579.2.462 Unknown [id number] 2.840.1.709677.3.579.2.462 Unknown [id number] .840.1.143310.3.579.2.462 Unknown [id number] .840.1.023199.3.579.2.462 Unknown [id number] 2.840.1.411902.3.579.2.462 Unknown [id number] 2.840.1.847318.3.579.2.462 Unknown [id number] 2.840.1.960095.3.579.2.462 Unknown [id number] .840.1.554419.3.579.2.462 Unknown [id number] 2.840.1.515351.3.579.2.462 Unknown [id number] 2.840.1.052517.3.579.2.462 Unknown [id number] 2.840.1.490302.3.579.2.462 Unknown [id number] 2.16840.1.294154.3.579.2.462 Unknown [id number] 2.16.840.1.231365.3.579.2.462 Unknown [id number] 2.16.840.1.164465.3.579.2.462 Unknown [id number] 2.16.840.1.466268.3.579.2.462 Unknown [id number] 2.16840.1.667087.3.579.2.462 Unknown [id number] 2.16840.1.181218.3.579.2.462 Unknown [id number] 2.0.1.998850.3.579.2.462 Social History Date Type Detail Facility [facility] Start: 03-27-2022 End: 10-15-2023 Tobacco smoking consumption unknown [facility] Start: 08-13-2020 None [facility] Start: 08-13-2020 Spouse/ Signif icant Other [facility] Start: 08-11-2020 Cigarettes [facility] Start: 1970 Sex Assigned At Female [facility] Start: 12-06-2018 End: 12-12-2024 Tobacco smoking status NHIS Smokes tobacco daily [facility] History of tobacco use Cigarette Smoker [facility] Start: 12-06-2018 End: 09-03-2023 Cigarettes smoked current (pack per day) - Reported 0.5 [facility] Start: 12-06-2018 Tobacco use and exposure Smokeless tobacco non-user [facility] Start: 09-03-2023 End: 10-19-2023 Alcohol intake Current non-drinker of alcohol (finding) [facility] Start: 08-31-2020 End: 09-03-2023 [facility] Utilities [facility] Has the [employer], or [employer] threatened to shut off services in your home in past 12Mo No [facility] Attends [employer] Not on file [facility] Are you now , , , , never or living with a partner? [facility] How often to you hav e a drink containing alcohol? Never [facility] Do you feel stress - tense, restless, nervous, or anxious, or unable to sleep at night because your mind is troubled all the time - these days [OSQ] Very much [facility] (I/We) worried hugo er (my/our) food would run out before (I/we) got money to buy more. Never true [facility] Start: 10-18-2018 Education 12 [facility] Start: 1970 Sex Assigned At Not on file [facility] Start: 05-29-2022 End: 06-08-2022 Exposure to SARS-CoV-2 (event) Not sure [facility] [employer] Start: 05-23-2024 Tobacco smoking status Never s moked tobacco (finding) [facility] Sexual Orientation [facility] Start: 09-04-2022 End: 09-29-2024 Sex Female (finding) [facility] Start: 08-26-2024 End: 08-28-2024 Tobacco smoking status NHIS Current Heavy tobacco smoker [facility] NEGATED: Highlighted row [facility] Medical Equipment Procedure Code Equipment Code Equipment Origin al Text Equipment Identifier Dates ([id number]) [id number] FDA Start: 08-10-2022 [id number] FDA Start: 08-10-2022 ([id number]) [id number] FDA Start: 08-10-2022 Nail Tfn-Advance d 125d Short Green Titanium 170mm Intramedullary Cannulated - [id number] Start: 09-03-2023 Screw Tfn-Advanc ed 85mm Bone Sterile - [id number] Start: 09-03-2023 Screw 5mm 4.3mm T25 Full Thread Titanium 34mm Bone Lock Self Tap Blunt Tip - [id number] Start: 09-03-2023 Comment on above: Description: Was on worksheet and verified on intra-op x-ray. [id number], [id number], [id number], [id number], [id number], [id number] Start: 10-08-2018 Comment on above: Check sugars [...] Facility 09-16-2024 Functional status Ambulates;Bathroom Priv ilege [facility] Work Phone: 09-02-2024 Functional status Ambulates [facility] Work Phone: 07-03-2024 Functional status Ambulates [facility] Work Phone: 05-24-2024 Functional Status Activity Status ADL Leslie ke [facility] 05-23-2024 Functional Status Standard Safet y ID band on, Allergy Band on, Call device within reach, Bed in low position, Wheels locked, personal items within reach, Safety level maintained [facility] 04-29-2024 Functional status Ambulates [facility] Work Phone: 06-16-2023 Functional status Ambulates;Bedside Commo de [facility] Work Phone: 05-07-2023 Functional status Bedside Commode [facility] Work Phone: 02-03-2023 Functional status Activity Ability Indepe ndent [facility] Work Phone: 01-03-2023 Functional status Patient Activi ty Ambulates;Up ad maria m [facility] Work Phone: 01-03-2023 Functional status Standby Assist [facility] Work Phone: 01-02-2023 Functional status Tolerates Activity Well [facility] Work Phone: 09-02-2022 Functional status Ambulates;Bedside Commo de [facility] Work Phone: Mental Status Date Assessment Result Facility 09-29-2024 Cognitive function Awake;Alert;A ppropriate;Follow s Commands [facility] Work Phone: 09-16-2024 Cognitive function Voice/Name [facility] Work Phone: 09-02-2024 Cognitive function Voice/Name [facility] Work Phone: 07-11-2024 Cognitive function Voice/Name [facility] Work Phone: 07-10-2024 Cognitive function Awake;Alert;A ppropriate;Follow s Commands [facility] Work Phone: 07-07-2024 Cognitive function Awake;Alert;A ppropriate;Follow s Commands [facility] Work Phone: 07-05-2024 Cognitive function Voice/Name [facility] Work Phone: 07-04-2024 Cognitive function Voice/Name [facility] Work Phone: 07-03-2024 Cognitive function Voice/Name [facility] Work Phone: 05-23-2024 Mental Status Orientation Oriented x 4 [facility] 04-29-2024 Cognitive function Voice/Name [facility] Work Phone: 06-16-2023 Cognitive function Voice/Name [facility] Work Phone: 06-12-2023 Cognitive function Level Of Cons ciousness Awake;Alert;Appropriate [facility] Work Phone: 05-07-2023 Cognitive function Voice/Name [facility] Work Phone: 09-02-2023 Cognitive function Voice/Name [facility] Work Phone: 02-02-2023 Cognitive function Level Of Cons ciousness Awake;Alert;Appropriate [facility] Work Phone: 01-03-2023 Cognitive function Appropriate;Cooperativ e [facility] Work Phone: 01-01-2023 Cognitive function Level Of Cons ciousness Awake;Alert;Appropriate;Follow s Commands [facility] Work Phone: 09-02-2022 Cognitive function Voice/Name [facility] Work Phone: 04-17-2022 Cognitive function Level Of Cons ciousness Awake;Alert;Appropriate [facility] Work Phone: 03-27-2022 Cognitive function Level Of Cons ciousness Awake;Alert;Appropriate [facility] Work Phone: Clinical Notes 06-08-2022 to 12-12-2024 Note Date & Type Note Facility 12-12-2024 Radiology Diagnostic study note [facility] 12-12-2024 Radiology Diagnostic study note [facility] 09-21-2024 Hospital Discharg e instructions Additional Instructions Follow-up with GI. Stay well-hydrated. Return for any other concerns. Can also follow-up with your PCP in the next 5 to 7 days. [facility] Work Phone: 09-16-2024 Consult note Note Date/Time September 16, 2024 2:16pm [facility] Medical Records Department [address] [place] [address] Counseling Note - Pharmacy 09/16/24 1415 MR#: [id number] Acct: [id number] Name: TRENTON JACKSON Rep #:[id number] : 1970 54 From: Josse Garcia PCP: RUTH Lawrence, SHANK ARCHER-C Statu s:ADM IN Y Location: [place] [address] Pharmacy [facility] has performed discharge medication reconciliation [...] was counselled on new medications by pharmacy technician assistant Balta. Medications at Discharge Home Medications aspirin [...] Signature (if applicable): Date CC: ~ Signed [facility] Work Phone: 1(560) 111-555404-15-2025 Discharge summary Author Latricia Aaron [facility] Note Date/Time September 16, 2024 12: 41pm [facility] Medical Records Department [address] [place] [address] Discharge Summary 09/16/24 1201 MR#: [id number] Acct: [id number] Name: TRENTON JACKSON Rep #:[id number] : 1970 54 From: Latricia Aaron MD PCP: RUTH Lawrence, GLENN Statu s:ADM IN Location: [place] [address] Providers Date of Admission: 09/09/24 Date of Discharge: 09/16/24 Primary Care Physician: RUTH Lawrence, SHANK ARCHERRamilaC Consultations 09/11/24 12:37 Consult: Infectious Disease Routine [...] % (Auto) Cancelled, Lymph % (Auto) Cancelled, Wilkinson % (Auto) Cancelled, Eos % (Auto) Cancelled, [...] Drop Cells Cancelled, Ovalocytes Cancelled, Stomatocytes Cancelled, [place] Bodies Cancelled, Lore Cells Cancelled, Bite Cells [...] (Auto) 79.4 H, Lymph % (Auto) 13.0L, Wilkinson % (Auto) 6.2, Eos % (Auto) 0.5, [...] Primary Care Provider: Zohreh Mckeon [facility] Consulting Providers: Rosaura Crane; Nichelle Mcneil; Brenda Posadas; Amish Tariq Discharge Orders/Prescriptions Prescriptions: New ertapenem 1 gram recon soln 1 g IV Q24H 7 Days Qty: 7 0RF Rx Instructions: Dx: emphysematous cystitis. Weekly bmp, LFT, and cbc while on iv abx. Fax to [phone]. acetaminophen 325 mg Tablet 650 mg PO [...] 0RF Referrals / Follow Up: Zohreh Mckeon, SHANK ARCHER-C [Primary Care Provider] - Within 1 Week Disposition Disposition (needs filled in before D/C Order can be placed): Home, Self Care Charges/Coding Visit Charges Inpatient E&M: 01898 Disch Hosp >30min 09/16/24 1241 <Electronically signed by Latricia Aaron MD> Cosigner Signature (if applicable): CC: RUTH SHANK ARCHER-C Zohreh Mckeon; Dr. Latricia Aaron MD~ Signed [facility] Work Phone: 1(671) 208-444604-15-2025 Progress note Author Latricia Aaron [facility] Note Date/Time September 16, 2024 12: 01pm [facility] Medical Records Department [address] [place] [address] Progress Note - Hospitalist 09/16/24812 MR#: [id number] Acct: [id number] Name: TRENTON JACKSON Rep #:[id number] : 1970 54 From: Latricia Aaron MD PCP: RUTH Lawrence, SHANK ARCHER-C Statu s:ADM IN Location: [place] [address] Reason for Visit Reason for Visit: Diagnoses [...] Nicoletteigner Signature (if applicable): CC: ~ Signed [facility] Work Phone: 1(341) 765-914204-15-2025 Progress note Author Nichelle Mcneil [facility] Note Date/Time September 16, 2024 10: 18am [facility] Medical Records Department [address] [place] [address] Progress Note - Infect Disease 09/16/24 1017 MR#: [id number] Acct: [id number] Name: TRENTON JACKSON Rep #:[id number] : 1970 54 From: Nichelle osborne MD PCP: RUTH Lawrence, GLENN Statu s:ADM IN Location: [place] [address] Physical Exam Narrative Not feeling well, ongoing [...] Cosigner Signature (if applicable): CC: ~ Signed [facility] Work Phone: 1(497) 931-547904-15-2025 [facility]04-14-2025 Progress [facility] Note Date/Time September 15, 2024 2:2 7pm [facility] Medical Records Department [address] [place] [address] Progress Note - Infect Disease 09/15/24 1426 MR#: [id number] Acct: [id number] Name: TRENTON JACKSON Rep #:[id number] : 1970 54 From: Nichelle osborne MD PCP: RUTH Lawrence, GLENN Statu s:ADM IN Location: [place] [address] Physical Exam Narrative Ongoing bladder pain, concerned [...] Cosigner Signature (if applicable): CC: ~ Signed [facility] Work Phone: 1(743) 688-244404-14-2025 Progress note Author Latricia Aaron [facility] Note Date/Time September 15, 2024 11: 29am [facility] Medical Records Department [address] [place] [address] Progress Note - Hospitalist 09/15/24 0722 MR#: [id number] Acct: [id number] Name: TRENTON JACKSON Rep #:[id number] : 1970 54 From: Latricia Aaron MD PCP: RUTH Lawrence, SHANK ARCHER-C Statu s:ADM IN Location: [place] [address] Reason for Visit Reason for Visit: Diagnoses [...] (Auto) 74.8 H, Lymph % (Auto) 14.8 L,Wilkinson % (Auto) 8.1, Eos % (Auto) 1.2, [...] documentation, 38minutes Charges/Coding Visit Charges Inpatient E&M: 03442 Subs Hosp L2 09/15/24 1129 <Electronically signed by Latricia Aaron MD> Cosigner Signature (if applicable): CC: ~ Signed [facility] Work Phone: [phone]) 590-860204-14-2025 Consult note Author Amish Tariq [facility] Note Date/Time September 15, 2024 11: 13am [facility] Medical Records Department [address] [place] [address] Consultation - Urology 09/15/24 1112 MR#: [id number] Acct: [id number] Name: TRENTON JACKSON Rep #:[id number] : 1970 54 From: Amish Tariq MD PCP: RUTH Lawrence, SHANK ARCHER-C Statu s:ADM IN Location: [place] [address] HPI Consult Data Date of Consult: 09/15/24 [...] intervention necessary from urology. Call w questions. [facility] Medical History L5 vertebral fracture ESBL (extended [...] (congestive heart failure) CAD (coronary artery disease), unga coronary artery Home Medications ?Medication ?Instructions ?Recorded [...] IN 1 - 2 pump subdermal Q6H NE N FOR 02/14/24 09/06/24 History saltsable FEET [...] (Auto) 74.8 H, Lymph % (Auto) 14.8 L,Wilkinson % (Auto) 8.1, Eos % (Auto) 1.2, [...] MD> Cosigner Signature (if applicable): CC: RUTH SHANK ARCHER-C Zohreh Mckeon~ Signed [facility] Work Phone: 1(428) 913-173404-13-2025 Progress note Author Brenda Posadas [facility] Note Date/Time September 14, 2024 4:3 5pm [facility] Medical Records Department [address] [place] [address] Progress Note - Hospitalist 09/14/24 0910 MR#: [id number] Acct: [id number] Name: TRENTON JACKSON Rep #:[id number] : 1970 54 From: Brenda Posadas MD PCP: RUTH Lawrence, SHANK ARCHER-C Statu s:ADM IN Location: [place] [id number]- 1 Reason for Visit Reason for Visit: [...] (Auto) 72.3 H, Lymph % (Auto) 19.3, Wilkinson % (Auto) 6.0, Eos % (Auto) 1.3, [...] documentation, 38Minutes Charges/Coding Visit Charges Inpatient E&M: 73901 Subs Hosp L2 09/14/24 1689 <Electronically signed by Brenda Posadas MD> Cosigner Signature (if applicable): CC: ~ Signed [facility] Work Phone: [phone]) 870-894304-12-2025 Progress note Author Brenda Posadas [facility] Note Date/Time September 13, 2024 5:3 4pm [facility] Medical Records Department [address] [place] [address] Progress Note - Hospitalist 09/13/24937 MR#: [id number] Acct: [id number] Name: TRENTON JACKSON Rep #:[id number] : 1970 54 From: Brenda Posadas MD PCP: Zohreh Mckeon, FERNANDOC, SHANK ARCHER-C Statu s:ADM IN Location: [place] [address] Reason for Visit Reason for Visit: Diagnoses [...] Clarity Clear, Urine pH 6.0, Ur Specific [place] 1.010, Urine Protein 15 H, Urine Glucose [...] 75.6 H, Lymph % (Auto) 14.4 L, Wilkinson % (Auto) 6.9, Eos % (Auto) 1.6, [...] documentation, 40Minutes Charges/Coding Visit Charges Inpatient E&M: 70551 Subs Hosp L2 09/13/24 1734 <Electronically signed by Brenda Posadas MD> Cosigner Signature (if applicable): CC: ~ Signed [facility] Work Phone: [phone]) [phone] Progress note Author Brenda Posadas [facility] Note Date/Time September 12, 2024 4:2 3pm [facility] Medical Records Department [address] [place] [address] Progress Note - Hospitalist 09/12/24 1615 MR#: [id number] Acct: [id number] Name: TRENTON JACKSON Rep #:[id number] : 1970 54 From: Brenda Posadas MD PCP: RUTH Lawrence, SHANK ARCHER-C Statu s:ADM IN Location: [place] [address] Reason for Visit Reason for Visit: Diagnoses [...] Neut % (Auto) 67.6, Lymph % (Auto) 23.2,Wilkinson % (Auto) 5.8, Eos % (Auto) 1.8, [...] documentation, 38Minutes Charges/Coding Visit Charges Inpatient E&M: 76446 Subs Hosp L2 09/12/24 1623 <Electronically signed by Brenda Posadas MD> Cosigner Signature (if applicable): CC: ~ Signed [facility] Work Phone: [phone]) 500-746804-11-2025 Consult note Author Nichelle Mcneil [facility] Note Date/Time September 12, 2024 2:5 8pm [facility] Medical Records Department [address] [place] [address] Consultation - Infectious Dx 09/12/24 1453 MR#: [id number] Acct: [id number] Name: TRENTON JACKSON Rep #:[id number] : 1970 54 From: Nichelle osborne MD PCP: RUTH Lawrence, SHANK ARCHER-C Statu s:ADM IN Location: [place] [address] Assessment & Plan Assessment/Plan (1) Emphysematous cystitis: [...] performed and neg except as noted above. [facility] Medical History L5 vertebral fracture ESBL (extended [...] (congestive heart failure) CAD (coronary artery disease), unga coronary artery Home Medications ?Medication ?Instructions ?Recorded [...] IN 1 - 2 pump subdermal Q6H NE N FOR 02/14/24 09/06/24 History saltsable FEET [...] Neut % (Auto) 67.6, Lymph % (Auto) 23.2,Wilkinson % (Auto) 5.8, Eos % (Auto) 1.8, [...] MD> Cosigner Signature (if applicable): CC: RUTH SHANK ARCHERBrian Mckeon~ Signed [facility] Work Phone: [phone]) 557-680404-10-2025 Progress note Author Brenda Posadas [facility] Note Date/Time September 11, 2024 4:1 0pm [facility] Medical Records Department [address] [place] [address] Progress Note - Hospitalist 09/11/24 1606 MR#: [id number] Acct: [id number] Name: TRENTON JACKSON Rep #:[id number] : 1970 54 From: Brenda Posadas MD PCP: Zohreh Mckeon, VSC, SHANK ARCHER-C Statu s:ADM IN Location: [place] [address] Reason for Visit Reason for Visit: Diagnoses [...] % (Auto) 68.0, Lymph % (Auto) 22.6, Wilkinson % (Auto) 6.3, Eos % (Auto) 1.9, [...] the colon consistent with constipation. Reading Location: [facility] Physical Exam Narrative General: Alert, oriented, [...] documentation, 37Minutes Charges/Coding Visit Charges Inpatient E&M: 01999 Subs Hosp L2 09/11/24 1610 <Electronically signed by Brenda Posadas MD> Cosigner Signature (if applicable): CC: ~ Signed [facility] Work Phone: [phone]) 713-521104-10-2025 Radiology Diagnostic study [facility]04-09-2025 Progress note Author Brenda Posadas [facility] Note Date/Time September 10, 2024 5:34 pm [facility] Medical Records Department [address] [place] [address] Progress Note - Hospitalist 09/10/24 1731 MR#: [id number] Acct: [id number] Name: TRENTON JACKSON Rep #:[id number] : 1970 54 From: Brenda Posadas MD PCP: RUTH Lawrence, SHANK ARCHER-C Statu s:ADM IN Location: [place] [address] Reason for Visit Reason for Visit: Diagnoses [...] (Auto) 72.8 H, Lymph % (Auto) 18.5L, Wilkinson % (Auto) 6.0, Eos % (Auto) 1.6, [...] Posadas MD Charges/Coding Visit Charges Inpatient E&M: 18053 Subs Hosp L1 09/10/24 6237 <Electronically signed by Brenda Posadas MD> Cosigner Signature (if applicable): CC: ~ Signed [facility] Work Phone: [phone]) 182-394904-08-2025 Progress note Author Brenda Posadas [facility] Note Date/Time September 09, 2024 6:46 pm [facility] Medical Records Department [address] [place] [address] Progress Note - Hospitalist 09/09/24 2830 MR#: [id number] Acct: [id number] Name: TRENTON JACKSON Rep #:[id number] : 1970 54 From: Brenda Posadas MD PCP: Zohreh Mckeon, VSC, SHANK ARCHER-C Statu s:ADM REHAN Location: [place] [address] Reason for Visit Reason for Visit: Diagnoses [...] Clarity Clear, Urine pH 6.0, Ur Specific [place] 1.010, Urine Protein 30 H, Urine Glucose [...] % (Auto) 67.1, Lymph % (Auto) 23.9, Wilkinson % (Auto) 5.5, Eos % (Auto) 2.3, [...] documentation, 40Minutes Charges/Coding Visit Charges Inpatient E&M: 96090 Subs Hosp L2 09/09/24 1846 <Electronically signed by Brenda Posadas MD> Cosigner Signature (if applicable): CC: ~ Signed [facility] Work Phone: [phone]) 439-498104-07-2025 Progress note Author Brenda Posadas [facility] Note Date/Time September 08, 2024 7:37 pm [facility] Medical Records Department [address] [place] [address] Progress Note - Hospitalist 09/08/24999 MR#: [id number] Acct: [id number] Name: TRENTON JACKSON Rep #:[id number] : 1970 54 From: Brenda Posadas MD PCP: RUTH Lawrence, SHANK ARCHER-C Statu s:ADM REHAN Location: [place] [address] Reason for Visit Reason for Visit: Diagnoses [...] % (Auto) Cancelled, Lymph % (Auto) Cancelled, Wilkinson % (Auto) Cancelled, Eos % (Auto) Cancelled, [...] Drop Cells Cancelled, Ovalocytes Cancelled, Stomatocytes Cancelled, [place] Bodies Cancelled, Castell Cells Cancelled, Bite Cells Cancelled, Crenated Cell [...] 77.8 H, Lymph % (Auto) 14.5 L, Wilkinson % (Auto) 5.0, Eos % (Auto) 1.7, [...] % (Auto) 64.6, Lymph % (Auto) 25.7, Wilkinson% (Auto) 6.0, Eos % (Auto) 2.4, Baso [...] recommend MRI for further characterization. Reading [facility] Physical Exam Narrative General: Resting comfortably but [...] documentation, 52Minutes Charges/Coding Visit Charges Inpatient E&M: 68727 Subs Hosp L3 09/08/24 1640 <Electronically signed [...] Cosigner Signature (if applicable): cc: ~* Signed [facility] Work Phone: 1(185) 782-301404-07-2025 History and physical note Author Rosaura Crane [facility] Note Date/Time September 07, 2024 10:0 0pm [facility] Medical Records Department [address] [place] [address] H&P Exam - Hospitalist 09/07/242133 MR#: [id number] Acct: [id number] Name: TRENTON JACKSON Rep #:[id number] : 1970 54 From: Rosaura Crane MD PCP: Zohreh Mckeon Gideon, SHANK ARCHER-C Statu s:ADM REHAN Location: [place] [address] HPI - General General Date of Admission: [...] which resolved who re- presents to the [facility] ED on 09/07/24 with history of [...] not obtained upon requested evaluation of patient. [facility] Medical History L5 vertebral fracture ESBL (extended [...] (congestive heart failure) CAD (coronary artery disease), unga coronary artery Home Medications ?Medication ?Instructions ?Recorded [...] IN 1 - 2 pump subdermal Q6H NE N FOR 02/14/24 Unknown History saltsable FEET [...] % (Auto) Cancelled, Lymph % (Auto) Cancelled, Wilkinson % (Auto) Cancelled, Eos % (Auto) Cancelled, [...] Drop Cells Cancelled, Ovalocytes Cancelled, Stomatocytes Cancelled, [place] Bodies Cancelled, Lore Cells Cancelled, Bite Cells [...] 77.8 H, Lymph % (Auto) 14.5 L, Wilkinson % (Auto) 5.0, Eos % (Auto) 1.7, [...] which resolved who re- presents to the [facility] ED on 09/07/24 with history of [...] 16 minutes. Charges/Coding Visit Charges Inpatient E&M: 48575 Init Hosp L3 Procedures Hospitalists Procedures: 73667 Advncd Care Plan 30 Min 09/07/24 2200 <Electronically signed by Rosaura Crane MD> Cosigner Signature (if applicable): CC: RUTH SHANK ARCHER-C Zohreh Mckeon; Dr. Rosaura Crane MD~ Signed [facility] Work Phone: [phone]) 242-995904-06-2025 Discharge summary [facility] Note Date/Time September 07, 2024 9:32 pm [facility] Medical Records Department [address] [place] [address] Emergency Department Summary 09/07/24 MR#: [id number] Acct: [id number] Name: TRENTON JACKSON Rep #:[id number] : 1970 54 From: Davis Gibson PCP: RUTH Lawrence, SHANK ARCHER-C Statu s:REG ER Location: ED HPI History [...] (congestive heart failure) CAD (coronary artery disease), unga coronary artery Home Medications ?Medication ?Instructions ?Recorded [...] IN 1 - 2 pump subdermal Q6H NE N FOR 02/14/24 Unknown History saltsable FEET [...] History obtained from others: none Consults: none [facility] Narrative: The patient was initially tachycardic, [...] PCU oBS This note was generated with [employer] software. It may contain incorrectwords, spelling, and [...] H Lymph % (Auto) Cancelled 14.5 L Wilkinson % (Auto) Cancelled 5.0 Eos % (Auto) [...] Drop Cells Cancelled Ovalocytes Cancelled Stomatocytes Cancelled [place] Bodies Cancelled Lore Cells Cancelled Bite Cells [...] Care Provider: Zohreh Mckeon Referrals: Zohreh Mckeon, SHANK ARCHER-C [Primary Care Provider] - Print Language: Cuban What to do if you have Problems For any increased pain, shortness of breath, bleeding, nausea or vomiting, chestpain, or any unexpected problems, contact your Primary Care Provider. Call [facility] ([phone]) or report to the closest Emergency Room. Call 911 if necessary. 09/07/242131 <Electronically signed by Davis Ibarra DO> Cosigner Signature (if applicable): CC: RUTH SHANK ARCHER-C Zohreh Mckeon ~ Signed [facility] Work Phone: [phone]) 192-181704-06-2025 Radiology Diagnostic study [facility]04-06-2025 Discharge summary Author Davis Ibarra [facility] Note Date/Time September 07, 2024 9:32 pm [facility] Medical Records Department [address] [place] [address] Emergency Department Summary 09/07/24 MR#: [id number] Acct: [id number] Name: TRENTON JACKSON Rep #:[id number] : 1970 54 From: Davis Gibson PCP: RUTH Lawrence, SHANK ARCHER-C Statu s:REG ER Location: ED HPI History of Present Illness Chief Complaint: Nausea/Vomiting [facility] Medical History L5 vertebral fracture ESBL (extended [...] (congestive heart failure) CAD (coronary artery disease), unga coronary artery Home Medications ?Medication ?Instructions ?Recorded [...] IN 1 - 2 pump subdermal Q6H NE N FOR 02/14/24 Unknown History saltsable FEET [...] History obtained from others: none Consults: none [facility] Narrative: The patient was initially tachycardic, [...] PCU oBS This note was generated with [employer] dictation software. It may contain incorrectwords, spelling, [...] H Lymph % (Auto) Cancelled 14.5 L Wilkinson % (Auto) Cancelled 5.0 Eos % (Auto) [...] Drop Cells Cancelled Ovalocytes Cancelled Stomatocytes Cancelled [place] Bodies Cancelled Lore Cells Cancelled Bite Cells [...] recommend MRI for further characterization. [facility] Triage Chief Complaint: Nausea/Vomiting [...] Care Provider: Zohreh Mckeon Referrals: Zohreh Mckeon, SHANK ARCHER-C [Primary Care Provider] - Print Language: Cuban What to do if you have Problems For any increased pain, shortness of breath, bleeding, nausea or vomiting, chestpain, or any unexpected problems, contact your Primary Care Provider. Call [facility] ([phone]) or report to the closest Emergency Room. Call 911 if necessary. 09/07/242131 <Electronically signed by Davis Ibarra DO> Cosigner Signature (if applicable): CC: RUTH SHANK ARCHER-Gideon Mckeon ~ Signed [facility] Work Phone: 1(866) 111-849004-04-2025 Discharge summary Author Zack Card [facility] Note Date/Time September 05, 2024 3:35 pm [facility] Medical Records Department [address] [place] [address] Emergency Department Summary 09/05/24 MR#: [id number] Acct: [id number] Name: TRENTON JACKSON Rep #:[id number] : 1970 54 From: Zack Han PCP: [...] to latex. History of cholecystectomy and appendectomy. [facility] Medical History L5 vertebral fracture ESBL (extended [...] (congestive heart failure) CAD (coronary artery disease), unga coronary artery Home Medications ?Medication ?Instructions ?Recorded [...] IN 1 - 2 pump subdermal Q6H NE N FOR 02/14/24 Unknown History saltsable FEET [...] I discussed her MRI review noting her L3-H1npbmupi disc. Discussed likely causing her radicular symptoms. [...] clinician: N/A This note was generated with [employer] dictation software. It may contain incorrectwords, spelling, [...] 79.7 H Lymph % (Auto) 14.1 L Wilkinson % (Auto) 5.1 Eos % (Auto) 0.2 [...] Primary Care Provider: Zohreh Mckeon [facility] Referrals: Vel Swartz MD [Med Staff - Active Staff] - 1-2 Weeks Prakristen,Brandon, MD [Med Staff - Active Staff] - 3-5 Days Zohreh Mckeon, SHANK ARCHER-C [Primary Care Provider] - Activity Restrictions/Additional Instructions: [...] your glucose with your insulin. Print Language: Cuban Disposition Disposition: Home, Self Care What to do if you have Problems For any increased pain, shortness of breath, bleeding, nausea or vomiting, chestpain, or any unexpected problems, contact your Primary Care Provider. Call [facility] ([phone]) or report to the closest Emergency Room. Call 911 if necessary. 09/05/24 1532 <Electronically signed by Zack Han> Cosigner Signature (if applicable): CC: RUTH SHANK ARCHER-Gideon Mckeon ~ Signed [facility] Work Phone: 1(681) 238-236104-01-2025 Consult note Author Haven Viramontes [facility] Note Date/Time September 02, 2024 2:33 pm [facility] Medical Records Department [address] [place] [address] Counseling Note - Pharmacy 09/02/24 1432 MR#: [id number] Acct: [id number] Name: TRENTON JACKSON Rep #:[id number] : 1970 54 From: Haven Viramontes PCP: RUTH Lawrence, SHANK ARCHER-Gideon Statu s:ADM IN Y [facility] has performed discharge medication reconciliation and counseling for this patient. 1. ACETAMINOPHEN 1000MG PO Q8 2. OXYCODONE 5MG Q4H PRN PAIN - Do not take with [place] 3. STOP GABAPENTIN The patient's discharge medication [...] Signature (if applicable): Date CC: ~ Signed [facility] Work Phone: 1(542) 744-307404-01-2025 Discharge summary Author Latricia Aaron [facility] Note Date/Time September 02, 2024 12:4 7pm [facility] Medical Records Department [address] [place] [address] Discharge Summary 09/02/24 1232 MR#: [id number] Acct: [id number] Name: TRENTON JACKSON Rep #:[id number] : 1970 54 From: Latricia Aaron MD PCP: Zohreh Mckeon, RUTH, SHANK ARCHER-C Statu s:ADM IN Location: [facility] [id number] Providers Date of Admission: 08/26/24 Date of Discharge: 09/02/24 Primary Care Physician: Zohreh Mckeon, [facility], SHANK ARCHER-C Consultations 08/26/24 20:30 Consult: Vascular Surgery Routine [...] pain. Requested for PT OT eval and nursing home social worker to assist with discharge planning ? 09/02/2024 patient was denied transfer to retirement facility by her insurance company since she [...] 80.7 H, Lymph % (Auto) 14.4 L, Wilkinson % (Auto) 4.0, Eos % (Auto) 0.2, [...] Primary Care Provider: Zohreh Mckeon [facility] Consulting Providers: Brenda Posadas; Riccardo Ng; Nicole [...] 3XD Referrals / Follow Up: Zohreh Mckeon, SHANK ARCHER-C [Primary Care Provider] - Within 1 Week Disposition Disposition (needs filled in before D/C Order can be placed): Home Health Service Charges/Coding Visit Charges Inpatient E&M: 92866 Disch Hosp >30min 09/02/24 1247 <Electronically signed by Latricia Aaron MD> Cosigner Signature (if applicable): CC: RUTH SHANK ARCHER-C Zohreh Mckeon; Dr. Latricia Aaron MD~ Signed [facility] Work Phone: 1(883) 491-420004-01-2025 [facility]04-01-2025 Progress note Author Latricia Aaron [facility] Note Date/Time September 02, 2024 9:14 am [facility] Medical Records Department [address] [place] [address] Progress Note - Hospitalist 09/02/24 0751 MR#: [id number] Acct: [id number] Name: TRENTON JACKSON Rep #:[id number] : 1970 54 From: Latricia Aaron MD PCP: Zohreh Mckeon [facility], SHANK ARCHER-C Statu s:ADM IN [facility] Reason for Visit Reason for Visit: Diagnoses [...] 80.7 H, Lymph % (Auto) 14.4 L, Wilkinson % (Auto) 4.0, Eos % (Auto) 0.2, [...] pain. Requested for PT OT eval and nursing home social worker to assist with discharge planning 3. Peripheral [...] documentation, 36minutes Charges/Coding Visit Charges Inpatient E&M: 46659 Subs Hosp L2 09/02/24 0914 <Electronically signed by Latricia Aaron MD> Cosigner Signature (if applicable): CC: ~ Signed [facility] Work Phone: 1(574) 116-433403-31-2025 Progress note Author Latricia Aaron [facility] Note Date/Time September 01, 2024 12: 47pm [facility] Medical Records Department [address] [place] [address] Progress Note - Hospitalist 09/01/24 0819 MR#: [id number] Acct: [id number] Name: TRENTON JACKSON Rep #:[id number] : 1970 54 From: Latricia Aaron MD PCP: RUTH Lawrence, SHANK ARCHER-C Statu s:ADM IN Location: [place] [address]344-1 Reason for Visit Reason for Visit: Diagnoses [...] pain. Requested for PT OT eval and nursing home social worker to assist with discharge planning 3. Peripheral [...] 38 minutes Charges/Coding Visit Charges Inpatient E&M: 91032 Subs Hosp L2 09/01/24 7263 <Electronically signed by Latricia Aaron MD> Cosigner Signature (if applicable): CC: ~ Signed [facility] Work Phone: 1(938) 813-852503-30-2025 Progress note Author Nciole Trujillo [facility] Note Date/Time August 31, 2024 2:1 2pm [facility] Medical Records Department [address] [place] [address] Progress Note - Hospitalist 08/31/24 0854 MR#: [id number] Acct: [id number] Name: TRENTON JACKSON Rep #:[id number] : 1970 54 From: Nicole Trujillo DO PCP: RUTH Lawrence, SHANK ARCHER-C Statu s:ADM IN Location: [place] [address]344-1 Reason for Visit Reason for Visit: Left [...] for tomorrow Charges/Coding Visit Charges Inpatient E&M: 66529 Subs Hosp L1 08/31/24 1412 <Electronically signed by Nicole Trujillo DO> Cosigner Signature (if applicable): CC: ~ Signed [facility] Work Phone: 1(815) 554-823103-29-2025 Progress note Author Nicole Trujillo [facility] Note Date/Time August 30, 2024 3:3 1pm [facility] Medical Records Department [address] [place] [address] Progress Note - Hospitalist 08/30/24 1528 MR#: [id number] Acct: [id number] Name: TRENTON JACKSON Rep #:[id number] : 1970 54 From: Nicole Trujillo DO PCP: RUTH Lawrence, SHANK ARCHER-C Statu s:ADM IN Location: [place] [address]-1 Reason for Visit Reason for Visit: Left [...] awaiting pre-CERT. Charges/Coding Visit Charges Inpatient E&M: 02297 Subs Hosp L1 08/30/24 1531 <Electronically signed by Nicole Trujillo DO> Cosigner Signature (if applicable): CC: ~ Signed [facility] Work Phone: 1(319) 677-210203-28-2025 Progress note Author Nicole Trujillo [facility] Note Date/Time August 29, 2024 5:0 3pm [facility] Medical Records Department [address] [place] [address] Progress Note - Hospitalist 08/29/24 1647 MR#: [id number] Acct: [id number] Name: TRENTON JACKSON Rep #:[id number] : 1970 54 From: Nicole Trujillo DO PCP: RUTH Lawrence, SHANK ARCHER-C Statu s:ADM IN [facility] Reason for Visit Reason for Visit: Left [...] % (Auto) 64.7, Lymph % (Auto) 24.4, Wilkinson% (Auto) 7.6, Eos % (Auto) 2.4, Baso [...] awaiting pre-CERT. Charges/Coding Visit Charges Inpatient E&M: 74830 Subs Hosp L1 08/29/24 1703 <Electronically signed by Nicole Trujillo DO> Cosigner Signature (if applicable): CC: ~ Signed [facility] Work Phone: 1(188) 236-378903-28-2025 Discharge summary Author Nicole Trujillo [facility] Note Date/Time August 29, 2024 9:5 0am [facility] Medical Records Department [address] [place] [address] Transfer to [facility] MR#: [id number] Acct: [id number] Name: TRENTON JACKSON Rep #:[id number] : 1970 54 From: Nicole Trujillo DO PCP: RUTH Lawrence, SHANK ARCHER-C Statu s:ADM IN Certification of patient admission REQUIRED AT TIME OF ADMISSION. I CERTIFY THAT POST-HOSPITAL ECF SERVICES ARE REQUIRED TO BE GIVEN ON AN IN-PATIENT BASIS BECAUSE OF THE ABOVE NAMED PATIENT'S NEED FOR PRISON CARE ON A CONTINUING BASIS FOR THE CONDITION(S) FOR WHICH HE/SHE WAS RECEIVING IN-PATIENT HOSPITAL SERVICES PRIOR TO HIS/HER TRANSFER TO THE ECF. 08/29/24 0997<Electronically signed by Nicole Trujillo DO> Diet Diet [...] Primary Care Provider: Zohreh Mckeon [facility] Consulting Providers: Brenda Posadas; Riccardo Ng Discharge [...] 0RF Referrals / Follow Up: Zohreh Mckeon, SHANK ARCHER-C [Primary Care Provider] - 08/29/24 1096 <Electronically signed by Nicole Trujillo DO> Cosigner Signature (if applicable): CC: RUTH SHANK ARCHERBrian Mckeon; Dr. Riccardo Ng MD; Dr. Brenda Posadas MD ~ [facility] Work Phone: [phone]) 941-971203-27-2025 Progress note Author Nicole Ronnie [facility] Note Date/Time August 28, 2024 6:0 1pm [facility] Medical Records Department [address] [place] [address] Progress Note - Hospitalist 08/28/241754 MR#: [id number] Acct: [id number] Name: TRENTON JACKSON Rep #:[id number] : 1970 54 From: Nicole Trujillo DO PCP: RUTH Lawrence, SHANK ARCHER-C Statu s:ADM IN Location: MS3 BR283-5 Reason for Visit Reason for Visit: Left [...] % (Auto) 66.7, Lymph % (Auto) 22.7, Wilkinson% (Auto) 6.7, Eos % (Auto) 3.0, Baso [...] age, lying in bed dozing off watching [employer], appears comfortable, nontoxic HEENT head/scalp atraumatic [...] -Full code Charges/Coding Visit Charges Inpatient E&M: 22162 Subs Hosp L2 08/28/24 1801 <Electronically signed by Nicole Trujillo DO> Cosigner Signature (if applicable): CC: ~ Signed [facility] Work Phone: 1(438) 409-734803-26-2025 Progress note Author Nicole Trujillo [facility] Note Date/Time August 27, 2024 2:5 8pm [facility] Medical Records Department [address] [place] [address] Progress Note - Hospitalist 08/27/24 0725 MR#: [id number] Acct: [id number] Name: TRENTON JACKSON Rep #:[id number] : 1970 54 From: Nicole Trujillo DO PCP: Zohreh Mckeon, Gideon, SHANK ARCHER-C Statu s:ADM IN Location: ICU CVICU20 2-1 Reason for Visit Reason for Visit: Left leg pain Subjective Subjective Patient is a 54-year-old white female with multiple comorbidities and complianceissues who presented to the emergency department at [facility] on 08/26/2024 with a chief complaint [...] % (Auto) 69.6, Lymph % (Auto) 20.9, Wilkinson % (Auto) 5.7, Eos % (Auto) 2.8, [...] (Auto) 72.4 H, Lymph % (Auto) 20.6, Wilkinson % (Auto) 4.4, Eos % (Auto) 1.6, [...] IMPRESSION: No acute cardiopulmonary process. Reading Location: [facility] Venous Doppler Study 08/26/24 10:40 Interpretation Summary Deep veins of the left lower extremity are patent and compressible segmentally. There is no evidence of left lower extremity deep vein thrombosis. The left great saphenous vein appears patent andcompressible segmentally. Incidental finding, right SFA stent occlusion Ordering Physician: Jeison Abrams [facility] Performed By: Héctor Ayoub RVT Lower Extremity CTA 08/26/24 14:00 IMPRESSION: Technically limited study as described. Severe multilevel disease as described level by level above. Interventional radiology consultation may be appropriate. Reading Location: [place] [address] Physical Exam Const alert, oriented x3 and [...] -Full code Charges/Coding Visit Charges Inpatient E&M: 86110 Subs Hosp L2 08/27/24 5438 <Electronically signed by Nicole Trujillo DO> Cosigner Signature (if applicable): CC: ~ Signed [facility] Work Phone: 1(509) 800-649603-26-2025 Consult note Author Riccardo Ng [facility] Note Date/Time August 27, 2024 7:3 3am [facility] Medical Records Department [address] [place] [address] Consultation - Surgical 08/27/24 0705 MR#: [id number] Acct: [id number] Name: TRENTON JACKSON Rep #:[id number] : 1970 54 From: Riccardo Ng MD PCP: Zohreh Mckeon Gideon, SHANK ARCHER-C Statu s:ADM IN Location: ICU CVICU20 2-1 [...] change and minimal relief with pain medications. [facility] Medical History ESBL (extended spectrum beta-lactamase) producing [...] (congestive heart failure) CAD (coronary artery disease), unga coronary artery Home Medications ?Medication ?Instructions ?Recorded [...] IN 1 - 2 pump subdermal Q6H NE N FOR 02/14/24 Unknown History saltsable FEET [...] % (Auto) 69.6, Lymph % (Auto) 20.9, Wilkinson % (Auto) 5.7, Eos % (Auto) 2.8, [...] (Auto) 72.4 H, Lymph % (Auto) 20.6, Wilkinson % (Auto) 4.4, Eos % (Auto) 1.6, [...] IMPRESSION: No acute cardiopulmonary process. Reading Location: [facility] Venous Doppler Study 08/26/24 10:40 Interpretation [...] radiology consultation may be appropriate. Reading Location: [facility] Charges/Coding Visit Charges Inpatient E&M: 52480 Init Hosp L3 08/27/24 1784 <Electronically signed by Riccardo Ng MD> Cosigner Signature (if applicable): CC: RUTH SHANK ARCHERBrian Mckeon~ Signed [facility] Work Phone: 1([phone]) 394-577303-26-2025 Discharge summary Author Jeison Abrams [facility] Note Date/Time August 27, 2024 7:0 7am [facility] Medical Records Department [address] [place] [address] Emergency Department Summary 08/26/24 MR#: [id number] Acct: [id number] Name: TRENTON JACKSON Rep #:[id number] : 1970 54 From: Jeison Gibson PCP: RUTH Lawrence, SHANK ARCHER-C Statu s:ADM IN Location: ICU CVICU20 2-1 [...] failure but states she has heart problems. [facility] <Dr. Jeison Abrams DO - Last Filed: 08/26/24 15:33> [facility] Medical History ESBL (extended spectrum beta-lactamase) producing [...] (congestive heart failure) CAD (coronary artery disease), unga coronary artery Home Medications ?Medication ?Instructions ?Recorded [...] IN 1 - 2 pump subdermal Q6H NE N FOR 02/14/24 Unknown History saltsable FEET [...] 89 Pulse Ox 97 Oxygen Delivery Method [facility] <Dr. Jeison Abrams, DO - Last Filed: 08/26/24 15:33> [facility] Narrative Medical decision making narrative: Differential diagnosis [...] % (Auto) 69.6 Lymph % (Auto) 20.9 Wilkinson % (Auto) 5.7 Eos % (Auto) 2.8 [...] IMPRESSION: No acute cardiopulmonary process. Reading Location: [facility] Venous Doppler Study 08/26/24 10:40 Interpretation Summary Deep veins of the left lower extremity are patent and compressible segmentally. There is no evidence of left lower extremity deep vein thrombosis. The left great saphenous vein appears patent andcompressible segmentally. Incidental finding, right SFA stent occlusion Ordering Physician: Jeison Abrams Referring Physician: Nathaly Lainez [facility] Performed By: Héctor Ayoub, RVT Lower Extremity CTA 08/26/24 14:00 IMPRESSION: Technically limited study as described. Severe multilevel disease as described level by level above. Interventional radiology consultation may be appropriate. Reading Location: [facility] <Dr. Vaughn Louise-Frantz, DO - Last Filed: 08/27/24 03:29> [facility] Narrative Medical decision making narrative: Differential diagnosis [...] % (Auto) 69.6 Lymph % (Auto) 20.9 Wilkinson % (Auto) 5.7 Eos % (Auto) 2.8 [...] IMPRESSION: No acute cardiopulmonary process. Reading Location: [facility] Venous Doppler Study 08/26/24 10:40 Interpretation [...] radiology consultation may be appropriate. Reading Location: [place] [address] Discharge Plan Disposition Disposition: Acute Care Hospital [facility] Discharge Date/Time: 08/26/24 20:14 What to do if you have Problems For any increased pain, shortness of breath, bleeding, nausea or vomiting, chestpain, or any unexpected problems, contact your Primary Care Provider. Call [facility] ([phone]) or report to the closest Emergency Room. Call 911 if necessary. 08/27/24 0707 <Electronically signed by Jeison Abrams DO> Cosigner Signature (if applicable): 08/27/24 0329 <Electronically signed by Vaughn Daugherty DO> CC: RUTH SHANK ARCHER-C Zohreh Mckeon ~ Signed [facility] Work Phone: [phone] 656-231303-25-2025 History and physical note Author Brenda Posdaas [facility] Note Date/Time August 26, 2024 8:1 8pm [facility] Medical Records Department [address] [place] [address] H&P Exam - Hospitalist 08/26/242002 MR#: [id number] Acct: [id number] Name: TRENTON JACKSON Rep #:[id number] : 1970 54 From: Brenda Posadas MD PCP: RUTH Lawrence, SHANK ARCHERBrian Statu s:ADM IN Location: ICU CVICU20 2-1 HPI - General General Date of Admission: 08/26/24 Date of Service: 08/26/24 Chief Complaint: Left lower extremity pain HPI Narrative TRENTON JACKSON, is a 54-year-old female with history of coronary artery disease, combined heart failure, hypertension, diabetes presented to [facility] ED 08/26/2024 due to pain and [...] and is not sure what is what [facility] Medical History ESBL (extended spectrum beta-lactamase) producing [...] (congestive heart failure) CAD (coronary artery disease), unga coronary artery Home Medications ?Medication ?Instructions ?Recorded [...] IN 1 - 2 pump subdermal Q6H NE N FOR 02/14/24 Unknown History saltsable FEET [...] % (Auto) 69.6, Lymph % (Auto) 20.9, Wilkinson % (Auto) 5.7, Eos % (Auto) 2.8, [...] IMPRESSION: No acute cardiopulmonary process. Reading Location: [facility] Venous Doppler Study 08/26/24 10:40 Interpretation Summary Deep veins of the left lower extremity are patent and compressible segmentally. There is no evidence of left lower extremity deep vein thrombosis. The left great saphenous vein appears patent andcompressible segmentally. Incidental finding, right SFA stent occlusion Ordering Physician: Jeison Abrams Referring Physician: Nathaly Lainez [facility] Performed By: Héctor Ayoub, RVT Lower Extremity CTA 08/26/24 14:00 IMPRESSION: Technically limited study as described. Severe multilevel disease as described level by level above. Interventional radiology consultation may be appropriate. Reading Location: [facility] Assessment & Plan Assessment/Plan (1) Acute pain [...] 76 Minutes Charges/Coding Visit Charges Inpatient E&M: 50111 Init Hosp L3 08/26/242017 <Electronically signed by Brenda Posadas MD> Cosigner Signature (if applicable): CC: RUTH SHANK ARCHERBrian Mckeon; Dr. Brenda Posadas MD~ Signed [facility] Work Phone: 1(740) [phone] Evaluation note* Diagnosis Onset Date Resolution Status [...] vomiting reso lved September 09, 2024 7:01pm [facility] Work Phone: 1(232) 966-639303-25-2025 Radiology Diagnostic study [facility]03-25-2025 Radiology Diagnostic study [facility]01-30-2025 [facility]01-26-2025 Evaluation note* Diagnosis Onset Date Resolution [...] diabetes mellitus acute August 26, 2024 8:03pm [facility] Work Phone: 1(290) 414-574701-26-2025 Evaluation note* Diagnosis Onset Date Resolution Status [...] and vomiting acute September 07, 2024 9:35pm [facility] Work Phone: 1([phone]) 708-226701-26-2025 Evaluation note* Diagnosis Onset Date Resolution Status [...] and vomiting acute September 09, 2024 7:01pm [facility] Work Phone: 1([phone]) 747-574701-26-2025 Evaluation note* Diagnosis Onset Date Resolution Status [...] and vomiting resolved September 09, 2024 7:01pm [facility] Work Phone: 1(425) 815-161312-21-2024 Hospital Discharge instructions Patient Education 05/23/2024 23:02:36 [...] for heart disease or after a stroke) Mves-xuq-puslveh medicines for diarrhea, nausea, and vomiting are generally OK unless you have bleeding, fever, or severe abdominal pain. General care If symptoms are severe, rest at home for the next 24 hours, or until you are feeling better. Washing your hands with soap and water, or using alcohol-based hand silver chaser is the best way to stop the [...] after. Wash your hands or use alcohol-based silver chaser after using cutting boards, countertops, and knives that have been in contact with raw food. Dry your hands with a single use towel. Keep uncooked meats away from cooked and rnwps-sp-flx foods. Follow-up care Follow up with your [...] every 6 hours), or very dark urine 5407-5[address] [employer] [place] [address]. All rights reserved. This information is not intended as a substitute for professional medical care. Always follow yourhealthcare professional's instructions. Follow Up Care 05/23/2024 19:13:17 With:BRITTANEY PEARSON MD Address: [address] [place] [address] [id number]:2-4 days [facility] 12-20-2024 Note Discharge Instructions Thank you for allowing [facility] to assist you with your healthcare needs. The following is importantdischarge information regarding your hospital visit. Diagnosis from Today's Visit Vomiting What to Do Next Instructions from Your Care Team No qualifying data available. Post Acute Orders No qualifying data available. You Need to Schedule the Following Appointments Follow Up with BRITTANEY PEARSON MD When:Within 2-4 days Where:[address] [place] [address] [id number]- Allergies Latex Medications Please ask your primary [...] for heart disease or after a stroke) Cckk-fks-niviwet medicines for diarrhea, nausea, and vomiting are generally OK unless you have bleeding, fever, or severe abdominal pain. General care If symptoms are severe, rest at home for the next 24 hours, or until you are feeling better. Washing your hands with soap and water, or using alcohol-based hand silver chaser is the best way to stop the [...] after. Wash your hands or use alcohol-based silver chaser after using cutting boards, countertops, and knives that have been in contact with raw food. Dry your hands with a single use towel. Keep uncooked meats away from cooked and ddvjg-ze-eij foods. Follow-up care Follow up with your [...] every 6 hours), or very dark urine 1030-2897 [employer]. [address] [place] [address]. All rights reserved. This information is not intended as a substitute for professional medical care. Always follow yourhealthcare professional's instructions. Additional Information VACCINATE! IT SAVES LIVES! Members of the community who have not yet received the COVID-19 vaccine and would like to receive it can visit one of [facility] vaccine clinics. There are many vaccine clinic locations within the [facility]. For locations and available times, please visit www.gettheshot.coronavirus.[place].gov/. It is important to note that some COVID mobile vaccine clinics are held outdoors and may be canceled in rainy or stormy conditions. To learn more about pediatric vaccinations (ages 5-11), we invite you to visit the [facility] webpage. https://www.[facility].org/pages/6657-Jmsbm-Surxujidbvg-Pvqgnlmkca-Txmdv-Psd stions.htmlTo learn more about the COVID-19 vaccine, we invite you to visit the CDC website for a list of frequently asked questions. https://www.cdc.gov/coronavirus/2019-ncov/vaccines/faq.html [facility] [facility] Patient Portal Access Instructions: Stay connected with your healthcare team and access your personal medical information anytime with the [facility] Patient Portal. If you would like a full copy of your medical records please contact the [facility] Medical Records Department Sunday through Sunday between 8a.m. and 4:30p.m. Please follow the directions below to access the portal: 1.Access the email account you provided upon registration to the [facility].2.Look for an invitation email from [facility].3.Open the email and access the invitation link: Accept Invitation to [facility] [employer]4.Fill in the required stephens to create your account. Sign into [email or web address] with your username and password that you [...] you will allow to register on the [employer] [employer] Patient Portal for access to your information. You can also access the [employer] Patient Portal on the [employer] kati. Simply click on Health Records under mon.kita and then click on the [facility] logo. [...] Call your local pharmacy or go to http://bit.ly/2J0Do4v to find one close to you.3.Make use of household items: Use cat litter or old coffee grounds to dispose medications if other options arenot available. Mix your drugs with these household products, seal them in an airtight container andthrow it into the garbage. Call [facility]: [phone] to be sure your drugs can be [...] aware that I should contact my doctor. 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: Date/Time: Relationship to Patient: Witness Name/Signature: Date/Time: [facility]12-20-2024 Note* Exam Date Time Procedure Performing Provider Status 05/23/24 7:51 PM EKG [ED A[facility]] - CV RAYMUNDO VIEIRA DO; Auth (Verified) ECG Final Report Sinus rhythm Incomplete left bundle branch block Left ventricular hypertrophy Anterior Q waves, possibly due to LVH Electronic Signature: RAYMUNDO VIEIRA DO 05/23/2024 20:06:14 [facility]11-26-2024 [facility] 04-25-2024 Evaluation note* Diagnosis Onset Date Resolution Status Admit Date Chronic pain resolved April 3:52pm Dehydration resolved April 3:52pm Hyperglycemia resolved April 252023 3:52pm Hyponatremia resolved April 3:52pm Leukocytosis resolved April 3:52pm Nausea vomiting and diarrhea resolve d April 25, 2024 3:52pm Tachycardia resolved April 3:52pm Candidiasis of breast inactive [facility] 2023 3:52pm Colitis inactive April 25, 2024 3:52pm Debility inactive April 25, 2024 3:52pm Generalized weakness inactive [facility] 2023 3:52pm UTI (urinary tract infection) acute June 29, 2024 8:31pm Colitis deleted June 29, 2024 8:31pm Dehydration resolved June 29, 2024 8:31pm Sepsis due to gram-negative UTI deleted June 29 8:31pm [facility] Work Phone: 1(107) 671-162309-17-2024 [facility]07-30-2024 [facility]06-18-2024 Telephone encounter Note* Telephone Encounter - Stephanie De La Cruz - 11/20/2023 8:48 AM EDT The patient was discharged from [facility] 10-20-23 with an order to schedule with the Heart Failure Clinic. The Clinic reached out to the patient with no response. Therefore, this is considered a deferral of the Clinic's services at this time. [facility]06-18-2024 Miscellaneous Notes* Telephone Encounter - Stephanie De La Cruz - 11/20/2023 8:48 AM EDT The patient was discharged from [facility] 10-20-23 with an order to schedule with the Heart Failure Clinic. The Clinic reached out to the patient with no response. Therefore, this is considered a deferral of the Clinic's services at this time. documented in this encounterMarion Hospital05-20-2024 Telephone encounter Note * Telephone Encounter - Stephanie De La Cruz - 10/22/2023 9:35 AM EDT Patient was discharged from [facility] 10-20-23 with an order to schedule with the Heart Failure Clinic. However, the patient was then immediately admitted to a retirement facility. A letter was mailedto the patient asking them to contact the Clinic upon discharge from the facility. [facility]05-20-2024 Miscellaneous Notes* Telephone Encounter - Stephanie De La Cruz - 10/22/2023 9:35 AM EDT Patient was discharged from [facility] 10-20-23 with an order to schedule with the Heart Failure Clinic. However, the patient was then immediately admitted to a retirement facility. A letter was mailedto the patient asking them to contact the Clinic upon discharge from the facility. documented in this encounterMarion Hospital05-17-2024 NoteHNO ID: [id number] Author: MICHAEL NGUYỄN LSW Service: Care Management Author Type: Cv Rn Type: Care Mgt Progress Note Filed: 10/19/2023 14:54 Note Text: CARE MANAGEMENT DISCHARGE NOTE SERVICE DATE: October 19, 2023 SERVICE TIME: 1:56 PM Admission Date: 10/18/2023 LOS: 0 days Discharge Arrangement Discharge Arrangement: Fdc Facility Was an expedited discharge program used?: No Services Arranged Return to SNF Provider Name: [facility] Caregiver Assessment Caregiver is ready, willing and able to meet the patient's needs as recommended by the inter-professional team: No Caregiver needed Transportation Arrangements Transportation Arrangements: Ambulance Transportation Agency and Phone #:: [facility] ( [facility] ) [phone] / [phone] Date of Trip: 10/19/23 Time of Trip: 0800 Type of Service: BLS Non-emergency Is Patient Medicaid Pending?: No Was transportation financial coverage discussed with family?: Patient Video And Sound Recorder Location: [facility] Destination: [facility] Handoff Communication: Handoff to: Primary Care Physician [...] ED to Hosp-Admission (Current) from 10/18/2023 in [facility] Fdc Facility Agency [facility] SIGNATURE: SANDRA Kennedy PATIENT NAME: Trenton Jackson DATE: October 19, 2023 TIME: 1:56 PM CONTACT #: [phone]-17-[facility]24 Note HNO ID: [id number] Author: MICHAEL NGUYỄN LSW Service: Care Management Author Type: Cv Rn Type: Care Mgt Initial Assessment Filed: 10/19/2023 15:16 Note Text: CARE MANAGEMENT: ASSESSMENT AND DISCHARGE PLAN SERVICE DATE: October 19, 2023 SERVICE TIME: 1:00 PM PCP: Nathaly Leonard Primary Contact: Extended Emergency Contact Information Primary Emergency Contact: Curry Jackson Jr Address: [address] [place] [address] [place] Mobile Relation: Spouse Secondary Emergency Contact: Rebecca Dueñas Address: [place] [address] [facility] Relation: Mother Admission Status: Observation Insurance Provider: [employer] Discharge Planning requested by: Per Department Practice Potential Transition Plans Fdc Facility/Intermediate Care Facility Advance Directives Current Advance Directive: 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 No Discharge Planning Participant(s): Patient Patient/Family Comments: Caregiver Assessment: Caregiver is ready, willing and able to meet the patient's needs as recommended by the inter-professional team: No Caregiver needed Transport at Discharge: Transportation Arrangements: Ambulance Transportation Agency and Phone #:: [facility] ( [facility] ) [phone] / [phone] Date of Trip: 10/19/23 Time of Trip: 0800 Type of Service: BLS Non-emergency Is Patient Medicaid Pending?: No Was transportation financial coverage discussed with family?: Patient Video And Sound Recorder Location: [facility] Destination: [facility] Needs Prior to Discharge: Needs Prior to [...] her hospital bed. Support: Rebecca Dueñas (mother) [phone] and Curry Jackson Jr (Spouse) [phone] Pharmacy: [facility] [address] [place] [id number] PCP: Nathaly Leonard, Nathaly Leonard The patient was at [facility] 09-02-23 till 09-08-23 after fall and found to have Closed displaced intertrochanteric fracture of right femur. Ortho did surgery and the patient went to [facility]. The patient reports she wants return [...] 19, 2023 TIME: 2:59 PM CONTACT #: [phone] [facility]05-16-2024 Telephone encounter Note* Telephone Encounter - Ethel Alonso - 10/18/2023 3:00 PM EDT Spoke to Cindi - she is going [facility] to arrange for transport. She did state that sometimes they can diamond picker in 15 minutes but sometimes it can take hours. Cindi does have direct phone # and knows I am in office until 530pm should she need to reach the office, after that to call the main office phone #. Also verified [facility] ED address. Thank you Ethel Shah [facility]05-16-2024 Miscellaneous Notes* Telephone Encounter - Ethel Alonso - 10/18/2023 3:00 PM EDT Spoke to Cindi - she is going to contact [facility] to arrange for transport. She did state that sometimes they can diamond picker in 15 minutes but sometimes it can take hours. Cindi does have direct phone # and knows I am in office until 530pm should she need to reach the office, after that to call the main office phone #. Also verified [facility] ED address. Thank you Ethel Shah * Telephone Encounter - Ethel Alonso - 10/18/2023 10:41 AM EDT Returned Sara's call from [employer] regarding Trenton - last nurse we spoke to (Bryant), they were to take patient to [facility] ED and follow up with local ortho md. Called and spoke to Cindi - when order was given to Bryant in regards to giving an antibiotic & taking to [facility] ED for surgical consult if no improvement - there was no follow through on that end. The snf physician did give an antibiotic 09/27/23 - 10/04/23 and nothing was done after that until Cindi saw Trenton on 10/15/23 & sent her to [facility] ED. The ED gave her pain medication [...] Thank you Ethel Shah documented in this encounterMarion Hospital05-16-2024 Telephone encounter Note * Telephone Encounter - Ethel Alonso - 10/18/2023 10:41 AM EDT Returned Sara's call from [employer] regarding Trenton - last nurse we spoke to (Bryant), they were to take patient to [facility] ED and follow up with local ortho md. Called and spoke to Cindi - when order was given to Bryant in regards to giving an antibiotic & taking to [facility] ED for surgical consult if no improvement - there was no follow through on that end. The snf physician did give an antibiotic 09/27/23 - 10/04/23 and nothing was done after that until Cindi saw Trenton on 10/15/23 & sent her to [facility] ED. The ED gave her pain medication [...] May for review Thank you Ethel Shah [facility]05-15-2024 Telephone encounter Note* Telephone Encounter - Ethel Alonso - 10/17/2023 4:43 PM EDT Left 2 messages [facility]05-15-2024 Miscellaneous Notes* Telephone Encounter - Ethel [...] calling if other than patient: Bryant @ [facility] Return call to if other than patient: same Best contact number: [phone] Thank you, Pauly Heredia October 09, 2023 9:46 AM documented in this encounterMarion Hospital05-13-2024 Discharge summary Author Jeremiah Rawls [facility] October 15, 2023 5:33pm Note Date/Time October 15, 2023 4:51p [facility] Medical Records Department [address] [place] [address] Emergency Department Summary 10/15/23 MR#: [id number] Acct: [id number] Name: TRENTON JACKSON Rep #:[id number] : 1970 53 From: Jeremiah Rawls MD PCP: [facility] St atus:[facility] ER Location: ED HPI History of Present Illness Chief Complaint: Lower Extremity Injury Narrative Narrative: 53-year-old female past medical history of right hip arthroplasty status post fracture at the end of September around [facility]. She states that she was trying to go to the bathroom, but did not make it and had fallen. She sustained a fracture of her right hip. She states that she was sent to [place] for surgery. She is now to retirement facility locally for rehabilitation. She takes oxycodone and a muscle relaxer. She denies any recent falls but states she is continuing to have right hip pain. She also states that she has history of a surgical wound infection for which she was on antibiotics for 7 days intravenously. She states that retirement facility wants her wound evaluated as well. [facility] Medical History Acute dyspnea Aftercare following surgery of the circulatory system Alcohol abuse Amputation toe CAD (coronary artery disease), unga coronary artery CHF (congestive heart failure) Depression [...] she can be discharged back to the retirement facility. She will continue her oxycodone and muscle relaxer. She will continue her rehabilitation of her right hip. Disposition is discharged to retirement facility in stable condition. Radiography Diagnostic Testing: [...] come pick it up Primary Care Provider: [facility] Nathaly Finney Referrals: [facility] Nathaly Finney [Primary Care Provider] - Activity Restrictions/Additional Instructions: Continue your previous pain medications. Your postoperative wound does not appear to be acutely infected. Disposition Disposition: Home, Self Care What to do if you have Problems For any increased pain, shortness of breath, bleeding, nausea or vomiting, chestpain, or any unexpected problems, contact your Primary Care Provider. Call [facility] ([phone]) or report to the closest Emergency Room. Call 911 if necessary. 10/15/23 1733 <Electronically signed by Jeremiah Rawls MD> Cosigner Signature (if applicable): CC: [facility] ~ Signed [facility] Work Phone: [phone] Telephone encounter Note* Telephone Encounter - Ethel [...] calling if other than patient: Bryant @ [facility] Return call to if other than patient: same Best contact number: [phone] Thank you, Pauly Heredia October 09, 2023 9:46 AM [facility]05-06-2024 Telephone encounter Note* Telephone Encounter - Ethel Alonso - 10/08/2023 3:45 PM EDT Left message for Bryant to get an update on Trenton. Last message to her was instructions from Dr. May regarding giving her antibiotics, taking her to [facility] emergency department if no improvements for a surgical consult. Thank you Ethel Dave [facility]05-06-2024 Miscellaneous Notes* Telephone Encounter - Ethel Alonso - 10/08/2023 3:45 PM EDT Left message for Bryant to get an update on Trenton. Last message to her was instructions from Dr. May regarding giving her antibiotics, taking her to [facility] emergency department if no improvements for a [...] which facility was the patient seen at: [facility] Was an appointment scheduled (Y/N): no-unable to schedule per tool [facility] Return call to if other than patient: Bryant Best contact number: [phone] Thank you, Melany Simon October 03, 2023 1:23 PM documented in this encounterMarion Hospital05-02-2024 Telephone encounter Note * Telephone Encounter [...] which facility was the patient seen at: [facility] Was an appointment scheduled (Y/N): no-unable to schedule per tool Person calling if other than patient: Bryant([facility]) Return call to if other than patient: Bryant Best contact number: [phone] Thank you, Melany Alfred October 03, 2023 1:23 PM [facility]05-01-2024 Telephone encounter Note* Telephone Encounter - [...] he would like her taken to the [facility] Emergency Department for a surgical consult. Left my direct phone number so Bryant can call to let me know status. Thank you Ethel Shah [facility]05-01-2024 Miscellaneous Notes* Telephone Encounter - Ethel [...] he would like her taken to the [facility] Emergency Department for a surgical consult. Left [...] n Person calling if other than patient: [facility] Return call to if other than patient: bryant Chuck contact number: [phone] Thank you, Agata Das October 02, 2023 11:16 AM documented in this encounterMarion Hospital04-30-2024 Telephone encounter Note * Telephone Encounter [...] n Person calling if other than patient: [facility] Return call to if other than patient: bryant Chuck contact number: [phone] Thank you, Agata Das October 02, 2023 11:16 AM [facility]04-29-2024 Telephone encounter Note* Telephone Encounter - Ethel Alonso - 10/01/2023 11:04 AM EDT Left message w/Clare. She will have Stephania call me when she is back on the floor with an update on Trenton. All Clare can say is that she knows Trenton is still on the antibiotics. Gave Clare my direct phone #. Thank you Ethel Shah [facility]04-29-2024 Miscellaneous Notes* Telephone Encounter - Ethel [...] wound to review. thx documented in this encounterMarion Hospital04-29-2024 Telephone encounter Note * Telephone Encounter - Ethel Alonso - 10/01/2023 10:38 AM EDT ----- Message from Diya May MD sent at 09/30/2023 1:53 PM EDT ----- Please get me an update on her status. Also, a new picture of the wound to review. thx [facility]04-25-2024 Telephone encounter Note* Telephone Encounter - Ethel Alonso - 09/27/2023 3:34 PM EDTSummary: ABSCESS AT INCISION Received message from Stephania at [facility] stating Trenton is forming an abscess [...] she is in [place]. Dr. Posadas - [phone] He would like if the facility could send a picture of the incision and to start her on Doxycycline 100mg BID. Called Stephania with instructions and Dr. Posadas' phone number. Thank you Ethel Shah [facility]04-25-2024 Miscellaneous Notes* Telephone Encounter - Ethel Alonso - 09/27/2023 3:34 PM EDTSummary: ABSCESS AT INCISION Received message from Stephania at [facility] stating Trenton is forming an abscess [...] she is in [place]. Dr. Posadas - [phone] He would like if the facility could send a picture of the incision and to start her on Doxycycline 100mg BID. Called Stephania with instructions and Dr. Posadas' phone number. Thank you Ethel Shah documented in this encounterMarion Hospital04-12-2024 Miscellaneous Notes* Telephone Encounter - Ethel Alonso - 09/14/2023 2:37 PM EDT Left a message for Nurse Mgdylon Ruiz at the rehab facility ([phone]) that we do not need toschedule an appointment at this time but we would like to have a disc with an x-ray of Trenton's pelvis for review 09/17/23. Thank you Ethel Shah * Telephone Encounter - Ethel Alonso - 09/12/2023 9:24 AM EDT ----- Message from Evelyne Madsen sent at 09/11/2023 2:07 PM EDT ----- Regarding: Ecqod-Hocjoi-yj follow up post op- hip fracture Subject [...] which facility was the patient seen at: [facility] Was an appointment scheduled (Y/N): N/A Person calling if other than patient: REHAB [facility] Return call to if other than patient: REHAB Best contact number: [phone] Thank you, Evelyne Madsen September 11, 2023 2:07 PM documented in this encounterMarion Hospital04-05-2024 NoteHNO ID: [id number] Author: DANI LAGOS, CHAYITO Service: Nursing Author Type: Registered Nurse Type: Nursing Progress Note Filed: 09/07/2023 15:39 Note Text: Other: Okay to give oxy early prior to 1700 d/c per [facility]04-05-2024 NoteHNO ID: [id number] Author: KAYLA JOHNSON, Roscoe Service: Care Management Author Type: ? Type: Care Mgt Progress Note Filed: 09/07/2023 14:05 Note Text: [facility] PRECERT NOTE [facility] approved Fdc Facility for [facility]/. Precert approved through 09/18. The [facility] Medicaid precert for [facility] in CS portal is approved for 09/06 to 09/18 Reference #: [id number] --[id number] -- ID: [id number] For any additional questions regarding approvals, transport or care management needs, please contact the CM assigned to this patient in the Treatment Team. SIGNATURE: Kayla Johnson DATE: September 07, 2023 TIME: 2:05 [facility]04-05-2024 NoteHNO ID: [id number] Author: MONICA CHAPARRO APRN.CNP Service: General Surgery Author Type: Nurse Practitioner Type: Progress Notes Filed: 09/07/2023 09:11 Note Text: Trauma Surgery Progress Note SERVICE DATE: 09/07/2023 Trauma Service Pager: For questions or concerns Mon-Fri 6a-5p please page [phone]. After 5pm and on Weekends and Holidays, please page [phone] if in ICU or [phone] if on RNF. SUBJECTIVE: NAEON. Patient nauseated [...] 0659 09/07/23 0700 - 09/08/23 0659 Shift 3832-5310 3924-8053 1142-3904 24 Hour Total 6339-1048 2455-8701 5388-7862 24 Hour Total INTAKE Shift Total OUTPUT Urine 900 1000 1900 Urine Not Saved. 1 x 1 x Output ( External Collection Device 09/04/23 3448) 280 4445 1900 Emesis 50 50 Emesis (ml) 50 [...] 09/02/2023 Fall 09/02/2023 Coronary artery disease involving unga coronary artery of unga heart without angina pectoris 07/21/2018 Cannabis use disorder, mild, abuse 07/20/2018 Chronic Uncontrolled type 2 diabetes mellitus with hyperglycemia, with long-term current use of insulin (HCC) 06/08/2018 Chronic systolic heart failure (HCC) 06/08/2018 Anxiety and depression 06/08/2018 Cardiomyopathy (HCC) 12/02/2017 Essential hypertension 02/20/2017 Assessment: 53 year old female s/p mechanical GLF ([place] trans (more content not included)...[facility]04-04-2024 NoteHNO ID: [id number] Author: MELISSA PHAM PA-C Service: General Surgery Author Type: Physician Refrigerator Assembler Type: Progress Notes Filed: 09/06/2023 14:41 Note [...] fracture as result of trauma [facility]04-04-2024 NoteHNO ID: [id number] Author: MELISSA PHAM PA-C Service: General Surgery Author Type: Physician Refrigerator Assembler Type: Progress Notes Filed: 09/06/2023 11:21 Note Text: Trauma Surgery Progress Note SERVICE DATE: 09/06/2023 Trauma Service Pager: For questions or concerns Mon-Fri 6a-5p please page [phone]. After 5pm and on Weekends and Holidays, please page [phone] if in ICU or [phone] if on [...] 09/05/23699 - 09/06/2365809/06/23699 - 09/07/23 0659 Shift 6246-9330 0557-1558 3902-0037 24 Hour Total 9212-9257 7070-7430 3250-6792 24 Hour Total INTAKE Shift Total OUTPUT Urine 5520 816 6873 Output ( External Collection Device 09/04/23 1025) 7368 498 1104 Shift Total 7303 536 9690 Weight (kg) 72.6 72.6 72.6 72.6 72.6 [...] 09/02/2023 Fall 09/02/2023 Coronary artery disease involving unga coronary artery of unga heart without angina pectoris 07/21/2018 Cannabis use disorder, mild, abuse 07/20/2018 Chronic Uncontrolled type 2 diabetes mellitus with hyperglycemia, with long-term current use of insulin ([facility]) 06/08/2018 Chronic systolic heart failure ([facility]) 06/08/2018 Anxiety and depression 06/08/2018 Cardiomy (more content not included)...[facility]04-03-2024 NoteHNO ID: [id number] Author: TERRIE URIOSTEGUI RN Service: Care Management [...] disorder, mild, abuse Coronary artery disease involving unga coronary artery of unga heart without angina pectoris Trauma Fall Resolved Problems: * No resolved hospital problems. * Physician: Jozef Barros DO SIGNATURE: Terrie Uriostegui RN PATIENT NAME: Trenton Jackson DATE: September 05, 2023 TIME: 4:09 PM PAGER/CONTACT #: [phone] Light Mercy Hospital04-03-2024 NoteHNO ID: [id number] Author: TERRIE URIOSTEGUI RN Service: Care Management Author Type: Registered Nurse Type: Care Mgt Progress Note Filed: 09/05/2023 15:44 Note Text: CARE MANAGEMENT PROGRESS NOTE SERVICE DATE: 09/05/2023 SERVICE TIME: 2:52 PM LOS: 3 days [place] of Choice Given: Yes Level of Care Discussed: Fdc Facility Financial Disclosure Provided: No Provider List: Fdc Facility Provider list within the patient's requested geographic area shared with the patient/family: Yes within: 15 miles of zip code: [address] Quality and resource use metrics shared with the patient that are relevant to the patient's goals of care and treatment preferences:: Yes DC Plan: SNF , discussed pt/ot recs for SNF, pt agreeable to snf list, snf list provided, FOC is [facility]; agreeable to sending additional referrals to [facility], [facility] , and [facility] ; referrals sent Barriers to dc: precert needs to be initiated Anticipated dc date: 09/05-09/06 Transportation: pt [place] likely need [place] arrangements [place] ADDENDUM: [facility] still has not accepted, pt agreeable to starting precert with [facility], precert requested; Attestation note in place on 09/04 still needs cosigned SIGNATURE: Terrie Uriostegui RN PATIENT NAME: Trenton Jackson DATE: September 05, 2023 TIME: 2:52 PM PAGER/CONTACT #: [phone] Light Mercy Hospital04-03-2024 NoteHNO ID: [id number] Author: DIYA MAY MD Service: Care Management [...] disorder, mild, abuse Coronary artery disease involving unga coronary artery of unga heart without angina pectoris Trauma Fall Resolved Problems: * No resolved hospital problems. * Physician: Jahaira Alfaro MD SIGNATURE: Terrie Uriostegui RN PATIENT NAME: Trenton Jackson DATE: September 05, 2023 TIME: 11:55 AM PAGER/CONTACT #: [phone] Light Mercy Hospital04-03-2024 NoteHNO ID: [id number] Author: ROBERTO DAS PA-C Service: General Surgery Author Type: Physician Refrigerator Assembler Type: Progress Notes Filed: 09/05/2023 07:58 Note [...] 0659 09/05/23 07 - 09/06/23 0659 Shift 8671-2488 7381-3672 0552-3203 24 Hour Total 8832-7745 0749-9510 8354-8243 24 Hour Total INTAKE PO 120 120 [...] 09/02/2023 Dyslipidemia (more content not included)...[facility] 09-05-2023 NoteHNO ID: [id number] Author: NICHELLE VIRAMONTES MD Service: Orthopaedic Surgery [...] and on weekends for any issues.[facility]04-02-2024 NoteHNO ID: [id number] Author: NORM RUEDA LSW Service: Care Management Author Type: Cv Rn Type: Care Mgt Progress Note Filed: 09/04/2023 [...] or get rid of a hangover (eye animal trainer)? No 6. CAGE Screening? No 7. If [...] 04, 2023 TIME: 10:39 AM PAGER/CONTACT #: [phone]23 NoteHNO ID: [id number] Author: ROBERTO DAS PA-C Service: General Surgery Author Type: Physician Refrigerator Assembler Type: Progress Notes Filed: 09/04/2023 08:51 Note [...] 09/03/23699 - 09/04/2365809/04/23699 - 09/05/23 0659 Shift 1234-1465 7520-9055 2608-4490 24 Hour Total 2116-1358 2831-7147 9176-9169 24 Hour Total INTAKE PO 120 120 [...] jaundiced. Neuro: AANDOx3. Strength and sensation normal. KNTOT. GCS15. Psych: Normal mood. Normal affect. Appropriate insight into current situa (more content not included)...[facility]04-02-2024 NoteHNO ID: [id number] Author: DIYA MAY MD Service: Orthopaedic Surgery [...] and on weekends for any issues.[facility]04-01-2024 NoteHNO ID: [id number] Author: SAVANNA FREEMAN LSW Service: Care Management Author Type: Cv Rn Type: Care Mgt Progress Note Filed: 09/03/2023 16:06 Note Text: CARE MANAGEMENT PROGRESS NOTE SERVICE DATE: 09/03/2023 SERVICE TIME: 4:05 PM LOS: 1 day SW Consult SW attempted to see pt to complete trauma assessment, pt off the floor. SIGNATURE: SANDRA Barbosa PATIENT NAME: Trenton Jackson DATE: September 03, 2023 TIME: 4:05 PM PAGER/CONTACT #: [phone]23 NoteHNO ID: [id number] Author: GHASSAN PÉREZ APRN.CRNA Service: Anesthesiology Author Type: Nurse Cardiac Cath Tech Type: Anesthesia Procedure Notes Filed: 09/03/2023 12:36 [...] September 03, 2023 TIME: 12:35 PM CSN: [id number]04-01-2024 NoteHNO ID: [id number] Author: MOODY HODGE DO Service: Anesthesiology Author [...] September 03, 2023 TIME: 12:34 PM CSN: [id number]04-01-2024 NoteHNO ID: [id number] Author: GHASSAN PÉREZ APRN.CARDIOLOGY ASSOCIATE Service: Anesthesiology Author Type: Nurse Cardiac Cath Tech Type: Anesthesia Procedure Notes Filed: 09/03/2023 12:34 Note Text: ANESTHESIOLOGY PROCEDURE NOTE Airway General Information Procedure Start Time/Medication Administration: 09/03/2023 12:10 PM Patient location during procedure: OR Timeout Performed Pre-procedure: timeout performed Consent Obtained: Yes Patient identity confirmed: arm band and patient Staffing CARDIOLOGY ASSOCIATE: Ghassan Pérez APRN.CARDIOLOGY ASSOCIATE Performed by: REGINA Indications and Patient Condition [...] September 03, 2023 TIME: 12:34 PM CSN: [id number]04-01-2024 NoteHNO ID: [id number] Author: DARLYN JASSO RN Service: Care Management Author Type: Registered Nurse Type: Care Mgt Initial Assessment Filed: 09/03/2023 11:08 Note Text: CARE MANAGEMENT: ASSESSMENT AND DISCHARGE PLAN SERVICE DATE: September 03, 2023 SERVICE TIME: 10:55 AM PCP: Nathaly Leonard Primary Contact: Extended Emergency Contact Information Primary Emergency Contact: Curry Jackson Jr Address: [address] [place], [place] [id number] [facility] Mobile Relation: Spouse Secondary Emergency Contact: Rebecca Dueñas Address: [place] [address] [facility] Relation: Mother Admission Status: Inpatient Insurance [facility] Discharge Planning requested by: Per Department Practice Potential Transition Plans To Be Determined Advance Directives Current Advance Directive: 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 Per EMS, patient feel on the wet [...] this. She wants to go close to [place] where she and her family lives. The patient will need transportation arranged at d/c. SIGNATURE: Darlyn Jasso RN PATIENT NAME: Trenton Jackson DATE: September 03, 2023 TIME: 10:54 AM CONTACT #: [phone]04-01-2024 NoteHNO ID: [id number] Author: MONICA CHAPARRO APRN.CNP Service: General Surgery [...] 09/03/23 0659 09/03/23699 - 09/04/23 0659 Shift 8566-4157 0863-4921 4045-6943 24 Hour Total 6267-8900 5287-5418 0848-4562 24 Hour Total INTAKE Shift Total OUTPUT [...] femur (HCC) 09/02/2023 Coronary artery disease involving unga coronary artery of unga heart without angina pectoris 07/21/2018 Uncontrolled type 2 diabetes mellitus with hyperglycemia, with long-term current use of i (more content not included)...[facility] 09-03-2023 NoteHNO ID: [id number] Author: ALLI GARCÍA MD Service: Orthopaedic Surgery [...] 06/08/2018 Alli García MD Orthopaedic Surgery Pager #[phone] September 02[facility]03[facility] NoteHNO ID: [id number] Author: VIRGINIA BOSE [facility] Service: Pharmacy Author Type: Pharmacist Type: Plan of Care Filed: 09/06/2023 15:35 Note Text: PHARMACY MEDICATION REVIEW Patient Name: Trenton Jackson : 1970 The following medications were updated within the JBOSS DEVELOPER medication list based on discharge note from [place] 06/2023 - patient likely nonadherent with medications prior to admission based on fill history: Medications ADDED to [employer] medication list Carvedilol 12.5 mg tablet; Take [...] Take 50 gm daily Medications CHANGED on [employer]EL[employer] medication list Escitalopram 10 mg tablet; Take 10 mg daily Medications REMOVED from [employer] medication list Acetaminophen (no recent fills) Baclofen (from 2019, no recent fills) Benzocaine (from 2015, no recent fills) Buspirone (from 2019, no recent fills) Dicyclomine (from 2017, no recent fills) Ibuprofen Insulin lispro (from 2018, no recent fills) Lisinopril (now on Entresto) Metoprolol (more recently on carvedilol) Omeprazole (pt on pantoprazole per [place] 06/2023 discharge summary) Oxycodone-acetaminophen (last fill #14 tabs in 05/2023 per [facility]) Ranolazine (from 2018, no recent fills) Additional comments: N/A The below information represents the best possible medication history: Yes, but would recommend confirming prescriptions with patient/family when able. Patient declined to answer questions and the number for in chart would not connect on 09/02/23. Medication history completed by: Pharmacist: Virginia Bose [facility] Source of history: Care Everywhere records Medication nonadherence identified: Unable to assess Reconciliation completed: Yes Completed by: YOLANDA Patient interested in Bedside Delivery Services or using OP Pharmacy at discharge? Unable to assess Preferred outpatient pharmacy: [facility] [address] [place] [address] [address] [facility] [phone] [facility] [address] [place] [address] - [facility] - [phone] Allergies: Latex Itching Comment:Red and dry cracking [...] Medications: None (more content not included)...[facility]03-31-2024 History of Past illness Narrative* Problem [...] of this encounter (statuses as of 09/14/2023) [facility]01-13-2024 Discharge summary Author Jeremy Alexander [facility] June 16, 2023 9:45am Note Date/Time June 16, 2023 9 :20am [facility] Medical Records Department [address] [place] [address] Discharge Summary 06/16/23 0920 MR#: [id number] Acct: [id number] Name: TRENTON JACKSON Rep #:[id number] : 1970 52 From: Jeremy Ahuja PCP: [facility] St atus:ADM IN Location: [place] [id number]- [id number] Providers Date of Admission: 06/13/23 Date of Discharge: 06/16/23 Primary Care Physician: [facility] Consultations 06/15/23 15:32 Consult: Podiatry Routine [...] was 100 yesterday and 65 today in buttermaker continuous churn. Lantus insulin dose decreased From 25 to [...] Normal S2, no murmur. Decreased pulsation of JBOSS DEVELOPER and dorsalis artery left more than right. [...] Provider: Jeremy Alexander [facility] Providers: Talisha Boykin; Moody Gallagher [...] Practice Prof] - Within [address] [facility] [Primary Care Provider] - Moody Gallagher DPM [Med Staff - Active Staff] - Within 2 Weeks (For left ankle fracture. Status post TMA.) Disposition Disposition (needs filled in before D/C Order can be placed): Home, Self Care Charges/Coding Visit Charges Inpatient E&M: 00178 Disch Hosp >30min 06/16/23 0945 <Electronically signed by Jeremy Alexander MD> Cosigner Signature (if applicable): CC: Dr. Jeremy Alexander MD; [facility]~ Signed [facility] Work Phone: 1(752) 975-122101-13-2024 Discharge summary Author Jeremy Alexander [facility] June 16, 2023 9:20am Note Date/Time June 16, 2023 8 :42am [facility] Medical Records Department [address] [place] [address] Discharge Summary 06/16/23 0842 MR#: [id number] Acct: [id number] Name: TRENTON JACKSON Rep #:[id number] : 1970 52 From: Jeremy Ahuja PCP: [facility] St atus:ADM IN Location: [place] [address] Providers Date of Admission: 06/13/23 Primary Care Physician: [facility] Consultations 06/15/23 15:32 Consult: Podiatry Routine [...] % (Auto) 61.2, Lymph % (Auto) 22.9, Wilkinson % (Auto) 8.9, Eos % (Auto) 5.7 [...] % (Auto) 68.5, Lymph % (Auto) 20.3, Wilkinson % (Auto) 6.0, Eos % (Auto) 3.9, [...] 79.1 H, Lymph % (Auto) 11.4 L, Wilkinson % (Auto) 4.9, Eos % (Auto) 3.2, [...] 12:33 EST Reading Location ID and State: [facility] / [place] , Service support , D/C Instructions Discharge [...] Provider: Jeremy Alexander [facility] Providers: Talisha Boykin; Moody Gallagher [...] Practice Prof] - Within [address] [facility] [Primary Care Provider] - Disposition Disposition (needs filled in before D/C Order can be placed): Home, Self Care Charges/Coding Visit Charges Inpatient E&M: 16649 Disch Hosp >30min 06/16/23 0920 <Electronically signed by Jeremy Alexander MD> Cosigner Signature (if applicable): CC: Dr. Jeremy Alexander MD; [facility]~ Signed [facility] Work Phone: 1(391) 795-274901-13-2024 Discharge summary Author Jeremy Alexander [facility] June 16, 2023 9:19am Note Date/Time June 16, 2023 8 :42am [facility] Medical Records Department [address] [place] [address] Instructions for Home/Discharge Instructions 06/16/23 0841 MR#: [id number] Acct: [id number] Name: TRENTON JACKSON Rep #:[id number] : 1970 52 From: Jeremy Ahuja PCP: [...] Attending Provider: Jeremy Alexander Primary Care Provider: [facility] Consulting Providers: Talisha Boykin; Moody [...] Qty: 30 0RF Referrals / Follow Up: [facility] [Primary Care Provider] - Yesenia Zambrano PA [Med Staff - Adv Practice Prof] - Within 2 Weeks Disposition Disposition (needs filled in before D/C Order can be placed): Home, Self Care 06/16/23918<Electronically signed by Jeremy Alexander MD>Jeremy Alexander MD CC: ALEK Gallagher; Dr. Talisha Boykin MD; [facility] ~ Signed [facility] Work Phone: 1(884) 887-149001-12-2024 Progress note Author Jeremy Alexander [facility] June 15, 2023 5:50pm Note Date/Time June 15, 2023 5 :50pm [facility] Medical Records Department [facility] [place] [address] Progress Note - Hospitalist 06/15/23 1532 MR#: [id number] Acct: [id number] Name: TRENTON JACKSON Rep #:[id number] : 1970 52 From: Jeremy Ahuja PCP: [facility] atus:ADM IN Location: [place] [address] Reason for Visit Reason for Visit: Diagnoses [...] % (Auto) 61.2, Lymph % (Auto) 22.9, Wilkinson % (Auto) 8.9, Eos % (Auto) 5.7 [...] Normal S2, no murmur. Decreased pulsation of JBOSS DEVELOPER and dorsalis artery left more than right. [...] % (Auto) 61.2, Lymph % (Auto) 22.9, Wilkinson % (Auto) 8.9, Eos % (Auto) 5.7 [...] % (Auto) 68.5, Lymph % (Auto) 20.3, Wilkinson % (Auto) 6.0, Eos % (Auto) 3.9, [...] 79.1 H, Lymph % (Auto) 11.4 L, Wilkinson % (Auto) 4.9, Eos % (Auto) 3.2, [...] Sens 17 Charges/Coding Visit Charges Inpatient E&M: 72574 Subs Hosp L2 06/15/23 2800 <Electronically signed by Jeremy Alexander MD> Cosigner Signature (if applicable): CC: ~ Signed [facility] Work Phone: 1(365) 192-281301-11-2024 Progress note Author Jeremy Alexander [facility] June 14, 2023 3:46pm Note Date/Time June 14, 2023 3 :46pm [facility] Medical Records Department [address] [place] [address] [place] [address] Progress Note - Hospitalist 06/14/23 4709 MR#: [id number] Acct: [id number] Name: TRENTON JACKSON Rep #:[id number] : 1970 52 From: Jeremy Ahuja PCP: [facility] atus:ADM IN Location: [place] [address] Reason for Visit Reason for Visit: Diagnoses [...] (Auto) 76.1 H, Lymph % (Auto) 14.9 L,Wilkinson % (Auto) 5.5, Eos % (Auto) 2.3, [...] Normal S2, no murmur. Decreased pulsation of JBOSS DEVELOPER and dorsalis artery left more than right. [...] % (Auto) 68.5, Lymph % (Auto) 20.3, Wilkinson % (Auto) 6.0, Eos % (Auto) 3.9, [...] 79.1 H, Lymph % (Auto) 11.4 L, Wilkinson % (Auto) 4.9, Eos % (Auto) 3.2, [...] Sens 17 Charges/Coding Visit Charges Inpatient E&M: 34767 Subs Hosp L2 06/14/23 1546 <Electronically signed by Jeremy Alexander MD> Cosigner Signature (if applicable): CC: ~ Signed [facility] Work Phone: 1(232) 123-432001-10-2024 History and physical note Author [facility] June 13, 2023 7:02pm Note Date/Time June 13, 2023 1 2:24[facility] Medical Records Department [address] [place] [address] History & Physical Exam 06/13/23 0012 MR#: [id number] Acct: [id number] Name: TRENTON JACKSON Rep #:[id number] : 1970 52 From: Talisha Boykin MD PCP: [facility] atus:ADM IN Location: [facility] [id number]- 1 HPI - General General Date of [...] managed for acute exacerbation of heart failure. [facility] Medical History Acute dyspnea Aftercare following surgery of the circulatory system Alcohol abuse Amputation toe CAD (coronary artery disease), unga coronary artery CHF (congestive heart failure) Depression [...] % (Auto) 68.5, Lymph % (Auto) 20.3, Wilkinson % (Auto) 6.0, Eos % (Auto) 3.9, [...] elects to be full code. * Total cdgo-zo-kzer time 16 minutes. Total time spent on evaluation and management of patient, reviewing chart and specialist notes, discussing plan with patient, discussion with nursing and ancillary staff as well as documentation: 76 mins Charges/Coding Visit Charges Inpatient E&M: 37127 Init Hosp L3 Procedures Hospitalists Procedures: 45060 Advncd Care Plan 30 Min 06/13/23 1902 <Electronically signed by Talisha Boykin MD> Cosigner Signature (if applicable): CC: Dr. Talisha Boykin MD; [facility]~ Signed [facility] Work Phone: 1(629) 520-311101-10-2024 Progress note Author Jeremy Alexander [facility] June 13, 2023 2:49pm Note Date/Time June 13, 2023 2 :26pm [facility] Medical Records Department [address] [place] [address] Progress Note - Hospitalist 06/13/23 1312 MR#: [id number] Acct: [id number] Name: TRENTON JACKSON Rep #:[id number] : 1970 52 From: Jeremy Ahuja PCP: [facility] atus:ADM IN Location: [facility] Objective Data Objective Data Vital Signs: Vital [...] % (Auto) 68.5, Lymph % (Auto) 20.3, Wilkinson % (Auto) 6.0, Eos % (Auto) 3.9, [...] 79.1 H, Lymph % (Auto) 11.4 L, Wilkinson % (Auto) 4.9, Eos % (Auto) 3.2, [...] Normal S2, no murmur. Decreased pulsation of JBOSS DEVELOPER and dorsalis artery left more than right. [...] % (Auto) 68.5, Lymph % (Auto) 20.3, Wilkinson % (Auto) 6.0, Eos % (Auto) 3.9, [...] 79.1 H, Lymph % (Auto) 11.4 L, Wilkinson % (Auto) 4.9, Eos % (Auto) 3.2, [...] Sens 17 Charges/Coding Visit Charges Inpatient E&M: 19174 Subs Hosp L2 06/13/23 1449 <Electronically signed by Jeremy Alexander MD> Cosigner Signature (if applicable): CC: ~ Signed [facility] Work Phone: 1(545) 574-782601-10-2024 Discharge summary Author Riccardo Hillman [facility] June 13, 2023 12:46am Note Date/Time June 12, 2023 8: 15pm [facility] Medical Records Department [address] [place] [address] Emergency Department Summary 06/12/23 MR#: [id number] Acct: [id number] Name: TRENTON JACKSON Rep #:[id number] : 1970 52 From: Riccardo Gibson [facility] St atus:REG ER Location: ED HPI [...] a cough but denies any sputum production. [facility] Medical History Acute dyspnea Aftercare following surgery of the circulatory system Alcohol abuse Amputation toe CAD (coronary artery disease), unga coronary artery CHF (congestive heart failure) Depression [...] % (Auto) 68.5 Lymph % (Auto) 20.3 Wilkinson % (Auto) 6.0 Eos % (Auto) 3.9 [...] sinus rhythm with a rate of 97. NE interval was normal at 178 ms. QRS [...] effusion, Hypoxia Disposition Disposition: Acute Care Hospital [facility] What to do if you have Problems For any increased pain, shortness of breath, bleeding, nausea or vomiting, chestpain, or any unexpected problems, contact your Primary Care Provider. Call [facility] ([phone]) or report to the closest Emergency Room. Call 911 if necessary. 06/13/2345 <Electronically signed by Riccardo Hillman DO> Cosigner Signature (if applicable): CC: [facility] ~ Signed [facility] Work Phone: 1(494) 630-499712-04-2023 Discharge summary Author Latricia Aaron [facility] May 07, 2023 12:08pm Note Date/Time May 07, 2023 1 2:02pm [facility] Medical Records Department [address] [place] [address] Discharge Summary 05/07/23 1121 MR#: [id number] Acct: [id number] Name: TRENTON JACKSON Rep #:[id number] : 1970 52 From: Latricia Aaron MD PCP: [facility] St atus[facility]AD[facility] Providers Date of Admission: 05/03/23 Date of Discharge: 05/07/23 Primary Care Physician: Nathaly [facility] Consultations 05/03/23 21:00 Consult: Cardiology Routine [...] is a 52-year-old female who presented to [facility] ED on 05/03/2023 with worsening shortness [...] - Requested for PT OT eval and nursing home social worker to assist with discharge planning 4. Constipation [...] % (Auto) 66.3, Lymph % (Auto) 22.0, Wilkinson % (Auto) 7.3, Eos % (Auto) 3.0, [...] Provider: Latricia Aaron [facility] Providers: Alli Brito; Lei Justin; [...] Qty: 30 0RF Referrals / Follow Up: [facility] [Primary Care Provider] - 05/07/23 3:30 pm Disposition Disposition (needs filled in before D/C Order can be placed): Home, Self Care Charges/Coding Visit Charges Inpatient E&M: 19289 Disch Hosp >30min 05/07/23 1208 <Electronically signed by Latricia Aaron MD> Cosigner Signature (if applicable): CC: Dr. Latricia Aaron MD; [facility]~ Signed [facility] Work Phone: 1(697) 267-327812-04-2023 Consult note Author Josse Garcia [facility] May 07, 2023 11:50am Note Date/Time May 07, 2023 1 1:50am [facility] Medical Records Department [address] [place] [address] Counseling Note - Pharmacy 05/07/23 1149 MR#: [id number] Acct: [id number] Name: TRENTON JACKSON Rep #:[id number] : 1970 52 From: Josse Garcia [facility] St atus:ADM IN Y Location: [place] [address] Pharmacy [facility] has performed discharge medication reconciliation [...] Signature (if applicable): Date CC: ~ Signed [facility] Work Phone: 1(150) 363-414312-03-2023 Progress note Author Brenda Posadas [facility] May 06, 2023 4:01pm Note Date/Time May 06, 2023 8 :07am [facility] Medical Records Department [address] [place] [address] Progress Note - Hospitalist 05/06/23802 MR#: [id number] Acct: [id number] Name: TRENTON JACKSON Rep #:[id number] : 1970 52 From: Brenda Posadas MD PCP: [facility] St atus:ADM IN Location: [place] [id number]- 1 Reason for Visit Reason for Visit: [...] % (Auto) 62.7, Lymph % (Auto) 24.3, Wilkinson % (Auto) 7.5, Eos % (Auto) 4.1, [...] is a 52-year-old female who presented to [facility] ED on 05/03/2023 with worsening shortness [...] 35 minutes. Charges/Coding Visit Charges Inpatient E&M: 23269 Subs Hosp L2 05/06/23 1601 <Electronically signed by Brenda Posadas MD> Cosigner Signature (if applicable): CC: ~ Signed [facility] Work Phone: [phone]) 664-362512-03-2023 Progress note Author Alli Brito [facility] May 06, 2023 10:31am Note Date/Time May 06, 2023 1 0:31am [facility] Medical Records Department [address] [place] [address] Progress Note - Cardiology 05/06/23 1030 MR#: [id number] Acct: [id number] Name: TRENTON JACKSON Rep #:[id number] : 1970 52 From: Alli Brito MD PCP: [facility] atus:ADM IN Location: [place] [address] Subjective Subjective Patient seen and evaluated. Appears [...] % (Auto) 62.7, Lymph % (Auto) 24.3, Wilkinson % (Auto) 7.5, Eos % (Auto) 4.1, [...] % (Auto) 62.7, Lymph % (Auto) 24.3, Wilkinson % (Auto) 7.5, Eos % (Auto) 4.1, [...] of congestive heart failure which is systolic [place] Heart Association class III. 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 (2) History of coronary artery disease: PLAN: [...] Cosigner Signature (if applicable): CC: ~ Signed [facility] Work Phone: 1(934) 987-976412-02-2023 Progress note Author Brenda Posadas [facility] May 05, 2023 3:29pm Note Date/Time May 05, 2023 9 :59am [facility] Medical Records Department [address] [place] [address] Progress Note - Hospitalist 05/05/23 0958 MR#: [id number] Acct: [id number] Name: TRENTON JACKSON Rep #:[id number] : 1970 52 From: Brenda Posadas MD PCP: [facility] atus:ADM IN Location: [place] [address] Reason for Visit Reason for Visit: Diagnoses [...] % (Auto) 61.2, Lymph % (Auto) 23.6, Wilkinson % (Auto) 7.4, Eos % (Auto) 6.5 [...] insufficiency. Ordering Physician: Lei Justin Referring Physician: [facility] Performed By: Jyoti Pandey, EDMOND, RVT [...] is a 52-year-old female who presented to [facility] ED on 05/03/2023 with worsening shortness [...] 35 minutes. Charges/Coding Visit Charges Inpatient E&M: 89513 Subs Hosp L2 05/05/23 2314 <Electronically signed by Brenda Posadas MD> Cosigner Signature (if applicable): CC: ~ Signed [facility] Work Phone: 1(996) 124-160912-02-2023 Progress note Author Alli Brito [facility] May 05, 2023 11:03am Note Date/Time May 05, 2023 1 1:03am [facility] Medical Records Department [address] [place] [address] Progress Note - Cardiology 05/05/23 1102 MR#: [id number] Acct: [id number] Name: TRENTON JACKSON Rep #:[id number] : 1970 52 From: Alli Brito MD PCP: [facility] atus:ADM [place] Location: [place] [address] Subjective Subjective Patient seen and evaluated. Appears [...] % (Auto) 61.2, Lymph % (Auto) 23.6, Wilkinson % (Auto) 7.4, Eos % (Auto) 6.5 [...] % (Auto) 61.2, Lymph % (Auto) 23.6, Wilkinson % (Auto) 7.4, Eos % (Auto) 6.5 [...] insufficiency. Ordering Physician: Lei Justin Referring Physician: [facility] Performed By: Jyoti Pandey, EDMOND, RVT [...] of congestive heart failure which is systolic [place] Heart Association class III. 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 (2) History of coronary artery disease: PLAN: [...] Cosigner Signature (if applicable): CC: ~ Signed [facility] Work Phone: 1(842) 818-951112-01-2023 Progress note Author Brenda Posadas [facility] May 04, 2023 5:51pm Note Date/Time May 04, 2023 8 :34am [facility] Medical Records Department [address] [place] [address] Progress Note - Hospitalist 05/04/23825 MR#: [id number] Acct: [id number] Name: TRENTON JACKSON Rep #:[id number] : 1970 52 From: Brenda Posadas MD PCP: [facility] atus:ADM [place] Location: [place] [address] Reason for Visit Reason for Visit: Diagnoses [...] 77.6 H, Lymph % (Auto) 13.6 L, Wilkinson % (Auto) 3.9, Eos % (Auto) 3.4, [...] is a 52-year-old female who presented to [facility] ED on 05/03/2023 with worsening shortness [...] 35 minutes. Charges/Coding Visit Charges Inpatient E&M: 31313 Subs Hosp L2 05/04/23 1751 <Electronically signed by Brenda Posadas MD> Cosigner Signature (if applicable): CC: ~ Signed [facility] Work Phone: 1([phone]) 596-571112-01-2023 Consult note Author Alli Brito [facility] May 04, 2023 7:21am Note Date/Time May 04, 2023 6 :53am [facility] Medical Records Department [address] [place] [address] Consultation - Cardiology 05/04/23 0651 MR#: [id number] Acct: [id number] Name: TRENTON JACKSON Rep #:[id number] : 1970 52 From: Alli Brito MD PCP: [facility] atus:ADM IN Location: [place] [address] Assessment & Plan Assessment/Plan (1) CHF (congestive heart failure): PLAN: She does have evidence of congestive heart failure which is systolic [place] Heart Association class III. 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 (2) History of coronary artery disease: PLAN: [...] demonstrated this and had been evaluated in [place] and had a stress test which demonstrated [...] of this [facility] of [facility] discomfort coughing as [...] shewas admitted for further evaluation and management. [facility] Medical History (Updated 05/03/23 @ 17:53 by Paula Clayton) Acute dyspnea Aftercare following surgery of the circulatory system Alcohol abuse Amputation toe CAD (coronary artery disease), unga coronary artery CHF (congestive heart failure) Depression [...] 77.6 H, Lymph % (Auto) 13.6 L, Wilkinson % (Auto) 3.9, Eos % (Auto) 3.4, [...] (Auto)77.6 H, Lymph % (Auto) 13.6 L, Wilkinson % (Auto) 3.9, Eos % (Auto) 3.4, [...] Alli Brito MD; [facility]~ Signed [facility] Work Phone: 1(663) 289-214511-30-2023 History and physical note Author Lei Justin [facility] May 03, 2023 9:30pm Note Date/Time May 03, 2023 4:26pm [facility] Medical Records Department [address] [place] [address] H&P Exam - Hospitalist 05/03/23 1624 MR#: [id number] Acct: [id number] Name: TRENTON JACKSON Rep #:[id number] : 1970 52 From: Lei swanson DO PCP: [facility] St atus:ADM [place] Location: [place] [address] HPI - General General Date of Admission: 05/03/23 Date of Service: 05/03/23 Chief Complaint: Worsening shortness of breath HPI Narrative TRENTON JACKSON, is a 52 F who presented to [facility] ED on 05/03/2023 with 3 to [...] discomfort. No other acute concerns this time. [facility] Medical History (Updated 05/03/23 @ 17:53 by Paula Clayton) Acute dyspnea Aftercare following surgery of the circulatory system Alcohol abuse Amputation toe CAD (coronary artery disease), unga coronary artery CHF (congestive heart failure) Depression [...] 77.6 H, Lymph % (Auto) 13.6 L, Wilkinson % (Auto) 3.9, Eos % (Auto) 3.4, [...] is a 52-year-old female who presented to [facility] ED on 05/03/2023 with worsening shortness [...] 55 minutes. Charges/Coding Visit Charges Inpatient E&M: 46442 Init Hosp L2 05/03/232129 <Electronically signed by Lei Justin DO> Cosigner Signature (if applicable): CC: Dr. Lei Justin, ; [facility]~ Signed [facility] Work Phone: 1(398) 874-202911-30-2023 Discharge summary Author Ananda Coyle [facility] May 03, 2023 3:42pm Note Date/Time May 03, 2023 2:03pm [facility] Medical Records Department [address] [place] [address] Emergency Department Summary 05/03/23 MR#: [id number] Acct: [id number] Name: TRENTON JACKSON Rep #:[id number] : 1970 52 From: Ananda Coyle MD [...] abuse Amputation toe CAD (coronary artery disease), unga coronary artery CHF (congestive heart failure) Depression [...] CHF or pleural effusions. Differential would alsoinclude DC, anemia etc. Cardiac workup is underway. Repeat [...] 77.6 H Lymph % (Auto) 13.6 L Wilkinson % (Auto) 3.9 Eos % (Auto) 3.4 [...] rate of 97. No acute signs of DC or ischemia. Interventricular conduction delay. Discharge Plan [...] DAILY Qty: 90 3RF Primary Care Provider: [facility] Nathaly Finney Referrals: [facility] Nathaly Finney [Primary Care Provider] - Disposition Disposition: [facility] What to do if you have Problems For any increased pain, shortness of breath, bleeding, nausea or vomiting, chestpain, or any unexpected problems, contact your Primary Care Provider. Call [facility] ([phone]) or report to the closest Emergency Room. Call 911 if necessary. 05/03/23 1542 <Electronically signed by Ananda Coyle MD> Cosigner Signature (if applicable): CC: [facility] ~ Signed [facility] Work Phone: 1(337) 391-960211-30-2023 Discharge summary Author Ananda Coyle [facility] May 03, 2023 3:42pm Note Date/Time May 03, 2023 2:03pm [facility] Medical Records Department [address] [place] [address] Emergency Department Summary 05/03/23 MR#: [id number] Acct: [id number] Name: TRENTON JACKSON Rep #:[id number] : 1970 52 From: Ananda Coyle MD [...] abuse Amputation toe CAD (coronary artery disease), unga coronary artery CHF (congestive heart failure) Depression [...] CHF or pleural effusions. Differential would alsoinclude DC, anemia etc. Cardiac workup is underway. Repeat [...] 77.6 H Lymph % (Auto) 13.6 L Wilkinson % (Auto) 3.9 Eos % (Auto) 3.4 [...] rate of 97. No acute signs of DC or ischemia. Interventricular conduction delay. Discharge Plan [...] DAILY Qty: 90 3RF Primary Care Provider: [facility] Nathaly Finney Referrals: [facility] Chaz,Nathaly Lainez [Primary Care Provider] - Disposition Disposition: Acute [facility] What to do if you have Problems For any increased pain, shortness of breath, bleeding, nausea or vomiting, chestpain, or any unexpected problems, contact your Primary Care Provider. Call [facility] ([phone]) or report to the closest Emergency Room. Call 911 if necessary. 05/03/23 1542 <Electronically signed by Ananda Coyle MD> Cosigner Signature (if applicable): CC: [facility] ~ Signed [facility] Work Phone: 1([phone]) 439-879109-02-2023 Discharge summary Author Sabina Rosenberg [facility] February 03, 2023 4:02pm Note Date/Time February 03, 2023 3:30pm [facility] Medical Records Department [address] [place] [address] Instructions for Home/Discharge Instructions 02/03/23 1530 MR#: [id number] Acct: [id number] Name: TRENTON JACKSON Rep #:[id number] : 1970 52 From: Sabina Rosenberg DO [facility] atus:ADM REHAN Discharge Instructions [...] Attending Provider: Sabina Rosenberg Primary Care Provider: [facility] Nathaly Finney Consulting Providers: Brandon [...] 30 0RF Referrals / Follow Up: [facility],Nathaly Lainez [Primary Care Provider] - Within 2 Weeks Disposition Disposition (needs filled in before D/C Order can be placed): Home, Self Care 02/03/23 1602<Electronically signed by Sabina Rosenberg DO>Sabina Rosenberg DO CC: Dr. Brandon Adames MD; [facility] ~ Signed [facility] Work Phone: 1(754) 982-632709-01-2023 History and physical note Author Brandon Adames [facility] February 02, 2023 5:56pm Note Date/Time February 02, 2023 5:08pm [facility] Medical Records Department [address] [place] [address] H&P Exam - Hospitalist 02/02/23 1627 MR#: [id number] Acct: [id number] Name: TRENTON JACKSON Rep #:[id number] : 1970 52 From: Brandon talavera MD PCP: [facility] atus:ADM REHAN Location: [place] [address] HPI - General General Date of Admission: [...] has been unable to follow-up with a laundry housekeeping aide since that time but states that she has been taking her medications appropriately and watching her diet. She comes in today because she is also been having some shortness of breath, she did drop heroxygen down to 88% and is managing on 2 L nasal cannula. She did receive a doseof Lasix in the ER. [facility] Medical History Acute dyspnea Aftercare following surgery of the circulatory system Alcohol abuse CAD (coronary artery disease), unga coronary artery CHF (congestive heart failure) Depression [...] 70.1 H, Lymph % (Auto) 18.4 L, Wilkinson % (Auto) 6.1, Eos % (Auto) 3.9, [...] with colleagues Charges/Coding Visit Charges Inpatient E&M: 53557 Init Hosp L3 02/02/23 1756 <Electronically signed by Brandon Adames MD> Cosigner Signature (if applicable): CC: Dr. Brandon Adames MD; [facility]~ Signed [facility] Work Phone: 1(450) 423-251909-01-2023 History and physical note Author Brandon Adames [facility] February 02, 2023 5:56pm Note Date/Time February 02, 2023 5:08pm [facility] Medical Records Department [address] [place] [address] H&P Exam - Hospitalist 02/02/23 1627 MR#: [id number] Acct: [id number] Name: TRENTON JACKSON Rep #:[id number] : 1970 52 From: Brandon [facility]avera [facility] St atus:ADM REHAN Location: [place] [id number] 1 HPI - General General Date of [...] has been unable to follow-up with a laundry housekeeping aide since that time but states that she has been taking her medications appropriately and watching her diet. She comes in today because she is also been having some shortness of breath, she did drop heroxygen down to 88% and is managing on 2 L nasal cannula. She did receive a doseof Lasix in the ER. [facility] Medical History Acute dyspnea Aftercare following surgery of the circulatory system Alcohol abuse CAD (coronary artery disease), unga coronary artery CHF (congestive heart failure) Depression [...] 70.1 H, Lymph % (Auto) 18.4 L, Wilkinson % (Auto) 6.1, Eos % (Auto) 3.9, [...] with colleagues Charges/Coding Visit Charges Inpatient E&M: 20600 Init Hosp L3 02/02/23 1756 <Electronically signed by rBandon Adames MD> Cosigner Signature (if applicable): CC: Dr. Brandon Adames MD; [facility]~ Signed [facility] Work Phone: 1(171) 845-506109-01-2023 Discharge summary Author Zack Card [facility] February 02, 2023 3:56pm Note Date/Time February 02, 2023 12:13pm [facility] Medical Records Department [address] [place] [address] Emergency Department Summary 02/02/23 MR#: [id number] Acct: [id number] Name: TRENTON JACKSON Rep #:[id number] : 1970 52 From: Zack Han PCP: [...] Factors: Positive for Prior DVT or PE [facility] Medical History Acute dyspnea Aftercare following surgery of the circulatory system Alcohol abuse CAD (coronary artery disease), unga coronary artery CHF (congestive heart failure) Depression [...] clinician: Hospitalist This note was generated with NeuroDermation software. It may contain incorrectwords, spelling, and [...] 70.1 H Lymph % (Auto) 18.4 L Wilkinson % (Auto) 6.1 Eos % (Auto) 3.9 [...] pleural effusion Disposition Disposition: Acute Care Hospital [facility] What to do if you have Problems For any increased pain, shortness of breath, bleeding, nausea or vomiting, chestpain, or any unexpected problems, contact your Primary Care Provider. Call [facility] ([phone]) or report to the closest Emergency Room. Call 911 if necessary. 02/02/23 1556 <Electronically signed by Zack Han> Cosigner Signature (if applicable): CC: [facility] ~ Signed [facility] Work Phone: 1(260) 785-993908-02-2023 Consult note Author Josse Garcia [facility] January 03, 2023 11:29am Note Date/Time January 03, 2023 11: 09am [facility] Medical Records Department [address] [place] [address] Counseling Note - Pharmacy 01/03/23 1106 MR#: [id number] Acct: [id number] Name: RTENTON JACKSON Rep #:[id number] : 1970 52 From: Josse Garcia PCP: [facility] St atus[facility]ADM [facility] has performed discharge medication reconciliation [...] Josse Garcia on 01/03/23 at 1129 The case management director Paula is discussing with patient if they have adequate pen needles at home for their long-acting insulin, and will discuss with MD if more are needed. 01/03/23 1129 <Electronically signed by Josse osborne> Date _ Josse Garcia Signature (if applicable): _ cc: ~* Signed [facility] Work Phone: 1(863) 362-904108-02-2023 Discharge summary Author Sabina Rosenberg [facility] January 03, 2023 10:26am Note Date/Time January 03, 2023 10: 18am [facility] Medical Records Department [address] [address] [address] Instructions for Home/Discharge Instructions 01/03/23 1018 MR#: [id number] Acct: [id number] Name: ROSEMARYLJTRENTON DEON Rep #:[id number] : 1970 52 From: Sabina Rosenberg DO [...] Attending Provider: Sabina Rosenberg Primary Care Provider: [facility] Discharge Orders/Prescriptions Prescriptions: New lisinopril [...] Active Staff] - 02/28/23 11:00 [facility] [Primary Care Provider] - Within 2 Weeks Disposition Disposition (needs filled in before D/C Order can be placed): Home, Self Care 01/03/23 1026<Electronically signed by Sabina Rosenberg DO>Sabina Rosenberg DO CC: [facility] ~ Signed [facility] Work Phone: [phone] Progress note Author Sabina [facility] January 02, 2023 5:29pm Note Date/Time January 02, 2023 5:3 0pm [facility] Medical Records Department [address] [place] [address] Progress Note - Hospitalist 01/02/23 1726 MR#: [id number] Acct: [id number] Name: TRENTON JACKSON Rep #:[id number] : 1970 52 From: Sabina Rosenberg DO PCP: [facility] atus:ADM IN Location: [place] [id number]- 1 Reason for Visit Reason for Visit: [...] that I would get an appointment at [facility] for the patient to follow-up with [...] with her physicians as directed, I contacted [facility] and they will make an appointment for the patient to follow-up for ongoing care. #3 cardiomyopathy, probably ischemic in nature-patient will need close follow- upwith a laundry housekeeping aide after her discharge from the hospital, I [...] 50 minutes Charges/Coding Visit Charges Inpatient E&M: 17324 Subs Hosp L3 01/02/23 3441 <Electronically signed by Sabina Rosenberg DO> Cosigner Signature (if applicable): CC: ~ Signed [facility] Work Phone: 1([phone]) 662-193707-31-2023 History and physical note Author Sabina Rosenberg [facility] January 01, 2023 9:28pm Note Date/Time January 01, 2023 9:28 pm [facility] Medical Records Department [address] [place] [address] H&P Exam - Hospitalist 01/01/232112 MR#: [id number] Acct: [id number] Name: TRENTON JACKSON Rep #:[id number] : 1970 52 From: Sabina Rosenberg DO PCP: [facility] atus:ADM IN Location: [facility] AJL453- 1 HPI - General General Date of Admission: 01/01/23 Date of Service: 01/01/23 Chief Complaint: Shortness of breath, cough, chest pain on coughing and deep breathing HPI Narrative TRENTON JACKSON, is a 52 F who presents to the emergency room at [facility] with complaints of cough productive of [...] [facility] [...] she feels causes her to be unwell. [facility] Medical History (Updated 01/01/23 @ 17:18 by Elisabeth Elizalde) Alcohol abuse CAD (coronary artery disease), unga coronary artery CHF (congestive heart failure) Congestive [...] 75.1 H, Lymph % (Auto) 16.1 L, Wilkinson % (Auto) 5.0, Eos % (Auto) 2.7, [...] nature-patient will need close follow- upwith a laundry housekeeping aide after her discharge from the hospital, I [...] 75 minutes Charges/Coding Visit Charges Inpatient E&M: 73806 Init Hosp L3 01/01/232127 <Electronically signed by Sabina Rosenberg DO> Cosigner Signature (if applicable): CC: Dr. Sabina Rosenberg, ; [facility]~ Signed [facility] Work Phone: 1(635) 491-566807-31-2023 Discharge summary Author Yvette Hanley [facility] January 01, 2023 4:35pm Note Date/Time January 01, 2023 1:15 pm [facility] Medical Records Department [address] [place] [address] Emergency Department Summary 01/01/23 MR#: [id number] Acct: [id number] Name: TRENTON JACKSON Rep #:[id number] : 1970 52 From: Yvette Hanley DO [facility] St atus:REG ER Location: ED HPI [...] to 3 days and has been taking Renetta-Waverly cold relief. Patient denies nausea or vomiting. [...] from the knee down to the foot. [facility] Medical History CAD (coronary artery disease), unga coronary artery CHF (congestive heart failure) GERD (gastroesophageal reflux disease) HTN (hypertension) Hx of fracture of humerus Hyperlipidemia Toe amputee Home Medications alendronate 70 mg tablet 70 mg PO SolePower BONE Terapio 07/25/22 [History Last Taken Unknown] cholecalciferol (vitamin [...] established on arrival. Patient placed on a fruit sprayer. EKG obtained on arrival showed sinus rhythm [...] 75.1 H Lymph % (Auto) 16.1 L Wilkinson % (Auto) 5.0 Eos % (Auto) 2.7 [...] Nausea) Qty: 10 0RF Primary Care Provider: [facility] Nathaly Finney Referrals: [facility],Nathaly Lainez [Primary Care Provider] - Disposition Disposition: Acute Care Hospital [facility] What to do if you have Problems For any increased pain, shortness of breath, bleeding, nausea or vomiting, chestpain, or any unexpected problems, contact your Primary Care Provider. Call [facility] ([phone]) or report to the closest Emergency Room. Call 911 if necessary. 01/01/23 1635 <Electronically signed by Yvette Hanley DO> Cosigner Signature (if applicable): CC: [facility] ~ Signed [facility] Work Phone: 1(925) 509-607807-31-2023 Discharge summary Author Yvette [facility] January 01, 2023 4:35pm Note Date/Time January 01, 2023 1:15 pm [facility] Medical Records Department [address] [place] [address] Emergency Department Summary 01/01/23 MR#: [id number] Acct: [id number] Name: TRENTON JACKSON Rep #:[id number] : 1970 52 From: Yvette Hanley DO [...] to 3 days and has been taking Renetta-Waverly cold relief. Patient denies nausea or vomiting. [...] from the knee down to the foot. [facility] Medical History CAD (coronary artery disease), unga coronary artery CHF (congestive heart failure) GERD (gastroesophageal reflux disease) HTN (hypertension) Hx of fracture of humerus Hyperlipidemia Toe amputee Home Medications alendronate 70 mg tablet 70 mg PO BONE [facility] 07/25/22 [History Last Taken Unknown] [...] established on arrival. Patient placed on a fruit sprayer. EKG obtained on arrival showed sinus rhythm [...] 75.1 H Lymph % (Auto) 16.1 L Wilkinson % (Auto) 5.0 Eos % (Auto) 2.7 [...] Nausea) Qty: 10 0RF Primary Care Provider: [facility] Nathaly Finney [facility] - Disposition Disposition: [facility] What to do if you have Problems For any increased pain, shortness of breath, bleeding, nausea or vomiting, chestpain, or any unexpected problems, contact your Primary Care Provider. Call [facility] ([phone]) or report to the closest Emergency Room. Call 911 if necessary. 01/01/23 3828 <Electronically signed by Yvette Hanley DO> Cosigner Signature (if applicable): CC: [facility] ~ Signed [facility] Work Phone: 1(170) 822-654006-26-2023 Hospital Discharge instructions Additional Instructions Plenty of fluids such as water, prune juice and fruits, vegetables and fiber to help with constipation. GoLytely: Drink 6 to 8 ounce is every hour as needed and to have a bowel movement.[facility] Work Phone: 1(544) 879-959204-30-2023 Hospital Discharge instructions Additional Instructions Plenty of fluids such as water, prune juice and fruits, vegetables and fiber to help with constipation. GoLytely: Drink 6 to 8 ounce is every hour as needed and to have a bowel movement.[facility] Work Phone: 1(442) [phone] Card [facility] September 18, 2022 6:48pm Note Date/Time September 18, 2022 2:3 5pm [facility] Medical Records Department [address] [place] [address] Emergency Department Summary 09/18/22 MR#: [id number] Acct: [id number] Name: TRENTON JACKSON Rep #:[id number] : 1970 52 From: Zack Han PCP: [...] PFSH Medical History CAD (coronary artery disease), unga coronary artery CHF (congestive heart failure) GERD [...] 74.8 H Lymph % (Auto) 18.4 L Wilkinson % (Auto) 5.3 Eos % (Auto) 0.7 [...] (Auto) Neut % (Auto) Lymph % (Auto) Wilkinson % (Auto) Eos % (Auto) Baso % [...] EDT Reading Location ID and State: / [place] , Service support , Discharge Plan Triage [...] Qty: 10 0RF [facility] - 3-5 Days Activity Restrictions/Additional Instructions: Hip x-ray negative. Labs are stable. Follow-up with your doctor. Disposition Disposition: Home, Self Care What to do if you have Problems For any increased pain, shortness of breath, bleeding, nausea or vomiting, chestpain, or any unexpected problems, contact your Primary Care Provider. Call [facility] ([phone]) or report to the closest Emergency Room. Call 911 if necessary. 04/1847 <Electronically signed by Zack Han> Cosigner Signature (if applicable): CC: [facility] ~ Signed [facility] Work Phone: 1(642) 697-309304-01-[address] Forde [facility] September 02, 2022 11:17am Note Date/Time September 02, 2022 11:1 7am [facility] Medical Records Department [address] [place] [address] Discharge Summary 09/02/22 1115 MR#: [id number] Acct: [id number] Name: TRENTON JACKSON Rep #:[id number] : 1970 52 From: Jeison Forde DPM PCP: [facility] atus:ADM [place] Location: [address] Providers Date of Admission: 08/30/22 Primary Care Physician: [facility] Consultations 08/30/22 17:15 Consult: Hospitalist Routine Consulting Provider: Sabina Rosenberg Reason for Consult: medical management/pre operative clearance EMERGENT Consult: No MD Notified: Yes Date Notified: 08/30/22 Time Notified: 17:55 Method of Notification: Verbal Consult: Onc/Wound/dual rate supervisor Routine Comment: Reason For Visit: GANGRENE RIGH 2ND TOE Diagnosis Discharge Diagnosis (1) Cellulitis of right foot: Status: Acute Code(s): L03.115 - Cellulitis of right lower limb (2) Diabetes mellitus, type 2: Status: Chronic Code(s): E11.9 - Type 2 diabetes mellitus without complications (3) Atherosclerosis of lower extremity: Status: Acute Code(s): I70.209 - Unspecified atherosclerosis of unga arteries of extremities, unspecified extremity (4) Dry [...] 70 mg tablet 70 mg PO BONE [facility] 07/25/22 cholecalciferol (vitamin D3) 25 [...] Attending Provider: Jeison Forde Primary Care Provider: [facility] Nathaly Finney Consulting Providers: Sabina [...] CC: ALEK Forde; [facility]~ Signed [facility] Work Phone: 1(862) 542-826004-01-[address] Rosenberg [facility] September 02, 2022 10:21am Note Date/Time September 02, 2022 10:2 1am [facility] Medical Records Department [address] [place] [address] Progress Note - Hospitalist 09/02/22 1018 MR#: [id number] Acct: [id number] Name: TRENTON JACKSON Rep #:[id number] : 1970 52 From: Sabina Rosenberg DO PCP: [facility] St atus:ADM IN Location: [facility] IM707-9 Reason for Visit Reason for Visit: Diagnoses Type 2 diabetes mellitus without complications (08/30/22) Unspecified atherosclerosis of unga arteries of extremities, unspecified extremity (08/30/22) Peripheral [...] 35 minutes Charges/Coding Visit Charges Inpatient E&M: 14202 Subs Hosp L2 04/01/23 1021 <Electronically signed by Sabina Rosenberg DO> Cosigner Signature (if applicable): CC: ~ Signed [facility] Work Phone: 1(250) 390-250504-01-[address] Forde [facility] September 02, 2022 10:20am Note Date/Time September 02, 2022 10:2 0am [facility] Medical Records Department [address] [place] [address] Progress Note 09/02/22 1018 MR#: [id number] Acct: [id number] Name: TRENTON JACKSON Rep #:[id number] : 1970 52 From: Jeison Forde DPM PCP: [facility] atus:ADM [place] Location: [address] Subjective Subjective Patient denies constitutional symptoms. [...] 1020 <Electronically signed by Jeison Forde DPM> Jieson Forde DPM Cosigner Signature (if applicable): CC: ~ Signed [facility] Work Phone: 1(127) 394-862404-01-[address] Rosenberg [facility] September 02, 2022 10:18am Note Date/Time September 02, 2022 9:45 am [facility] Medical Records Department [address] [place] [address] Instructions for Home/Discharge Instructions 09/02/22 0941 MR#: [id number] Acct: [id number] Name: TRENTON JACKSON Rep #:[id number] : 1970 52 From: Sabina Rosenberg DO [...] Attending Provider: Jeison Forde Primary Care Provider: [facility] Nathaly Finney Consulting Providers: Sabina [...] Rosenberg DO; [facility] ~ Signed [facility] Work Phone: 1(511) 221-911803-31-[address] Rosenberg [facility] September 01, 2022 6:58pm Note Date/Time September 01, 2022 3:2 3pm [facility] Medical Records Department [address] [place] [address] Progress Note - Hospitalist 09/01/22 1518 MR#: [id number] Acct: [id number] Name: TRENTON JACKSON Rep #:[id number] : 1970 52 From: Sabina Rosenberg DO PCP: [facility] St atus:ADM [place] Location: [place] EH708-3 Reason for Visit Reason for Visit: Diagnoses Type 2 diabetes mellitus without complications (08/30/22) Unspecified atherosclerosis of unga arteries of extremities, unspecified extremity (08/30/22) Peripheral [...] 35 minutes Charges/Coding Visit Charges Inpatient E&M: 98292 Subs Hosp L2 09/01/22 1858 <Electronically signed by Sabina Rosenberg DO> Cosigner Signature (if applicable): CC: ~ Signed [facility] Work Phone: 1(774) 616-635203-31-[address] Forde [facility] September 01, 2022 12:02pm Note Date/Time September 01, 2022 12: 02pm [facility] Medical Records Department [address] [place] [address] Progress Note 09/01/22 1200 MR#: [id number] Acct: [id number] Name: TRENTON JACKSON Rep #:[id number] : 1970 52 From: Jeison Forde DPM PCP: [facility] atus:ADM IN Location: [address] Subjective Subjective 52-year-old female 1 day [...] Cosigner Signature (if applicable): CC: ~ Signed [facility] Work Phone: 1(103) 553-965303-30-[address] Rosenberg [facility] August 31, 2022 5:17pm Note Date/Time August 31, 2022 4:5 9pm [facility] Medical Records Department [address] [place] [address] Progress Note - Hospitalist 08/31/22 1658 MR#: [id number] Acct: [id number] Name: TRENTON JACKSON Rep #:[id number] : 1970 52 From: Sabina Rosenberg DO PCP: [facility] atus:ADM IN Location: [place] [address] Reason for Visit Reason for Visit: Diagnoses [...] an outpatient, I called her primarycare office ([facility]) and talk to Lory who is the [...] % (Auto) 64.6, Lymph % (Auto) 26.6, Wilkinson % (Auto) 6.5, Eos % (Auto) 1.3, [...] stated that she was sent to the [facility] for further evaluation and it was [...] 35 minutes Charges/Coding Visit Charges Inpatient E&M: 03696 Subs Hosp L2 08/31/22 7149 <Electronically signed by Sabina Rosenberg DO> Cosigner Signature (if applicable): CC: ~ Signed [facility] Work Phone: 1(812) 349-816703-30-2023 Procedure [facility] 08-30-[address] Rosenberg [facility] August 30, 2022 8:00pm Note Date/Time August 30, 2022 7:5 0pm [facility] Medical Records Department [address] [place] [address] Progress Note - Hospitalist 08/30/221943 MR#: [id number] Acct: [id number] Name: TRENTON JACKSON Rep #:[id number] : 1970 52 From: Sabina Rosenberg DO PCP: [facility] atus:ADM IN [facility] Reason for Visit Reason for Visit: Diagnoses Peripheral vascular disease, unspecified (08/30/22) Cellulitis of right lower limb (08/30/22) Pain in right foot (08/30/22) Subjective Subjective Patient was seen and examined today at request of podiatry, she is a 11-zury-sangukwb female came to the ER today with complaints of pain and dry gangrene to the distal area of her right second toe. Patient's chronic medical problems include type 2 diabetes, peripheral vascular disease, essential hypertension, hyperlipidemia, GERD, and a history of congestive heart failure. 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 [...] 77.4 H, Lymph % (Auto) 15.4 L, Wilkinson % (Auto) 5.9, Eos % (Auto) 0.5, [...] stated that she was sent to the [facility] for further evaluation and it was [...] 50 minutes Charges/Coding Visit Charges Inpatient E&M: 99530 [facility] Hosp 08/30/221999 <Electronically signed by Sabina Rosenberg DO> Cosigner Signature (if applicable): CC: ~ Signed [facility] Work Phone: 1(332) 569-538603-29-2023 History and physical note Author Dr. Forde [facility] August 30, 2022 4:09pm Note Date/Time August 30, 2022 4:0 9pm [facility] Medical Records Department [address] [place] [address] History & Physical Exam 08/30/22 1600 MR#: [id number] Acct: [id number] Name: TRENTON JACKSON Rep #:[id number] : 1970 52 From: Jeison Forde DPM [...] foot pain. Patient has no other complaints. [facility] Medical History CAD (coronary artery disease), unga coronary artery CHF (congestive heart failure) GERD [...] 77.4 H, Lymph % (Auto) 15.4 L, Wilkinson % (Auto) 5.9, Eos % (Auto) 0.5, [...] CC: ALEK Forde; [facility]~ Signed [facility] Work Phone: 1(768) [phone] History and physical note Author Dr. Forde [facility] August 30, 2022 4:09pm Note Date/Time August 30, 2022 4:0 9pm [facility] Medical Records Department [address] [place] [address] History & Physical Exam 08/30/22 1600 MR#: [id number] Acct: [id number] Name: TRENTON JACKSON Rep #:[id number] : 1970 52 From: Jeison Forde DPM [...] foot pain. Patient has no other complaints. [facility] Medical History CAD (coronary artery disease), unga coronary artery CHF (congestive heart failure) GERD [...] 77.4 H, Lymph % (Auto) 15.4 L, Wilkinson % (Auto) 5.9, Eos % (Auto) 0.5, [...] unspecified: (3) Cellulitis of right foot: 08/30/22 1607 <Electronically signed by Jeison Forde DPM> Cosigner Signature (if applicable): CC: ALEK Forde; [facility]~ Signed [facility] Work Phone: [phone]) [phone] Rawls [facility] August 30, 2022 4:06pm Note Date/Time August 30, 2022 2:0 7pm [facility] Medical Records Department [address] [place] [address] Emergency Department Summary 08/30/22 MR#: [id number] Acct: [id number] Name: TRENTON JACKSON Rep #:[id number] : 1970 52 From: Jeremiah Rawls MD [...] other symptoms. Chief Complaint: [facility] Medical History CAD (coronary artery disease), unga coronary artery CHF (congestive heart failure) GERD [...] 77.4 H Lymph % (Auto) 15.4 L Wilkinson % (Auto) 5.9 Eos % (Auto) 0.5 [...] (Auto) Neut % (Auto) Lymph % (Auto) Wilkinson % (Auto) Eos % (Auto) Baso % [...] EDT , Management Discussion w/another healthcare provider: Cloud Subject Matter Expert (Dr. Riccardo Ng with vascular surgery, Dr. [...] Qty: 30 0RF [facility]: [facility] - What to do if you have Problems For any increased pain, shortness of breath, bleeding, nausea or vomiting, chestpain, or any unexpected problems, contact your Primary Care Provider. Call [facility] ([phone]) or report to the closest Emergency Room. [...] applicable): cc: [facility] ~* Signed [facility] Work Phone: [phone]) [phone] Black [facility] August 14, 2022 4:44pm Note Date/Time August 14, 2022 2:3 8pm [facility] Medical Records Department [address] [place] [address] Emergency Department Summary 08/14/22 MR#: [id number] Acct: [id number] Name: TRENTON JACKSON Rep #:[id number] : 1970 51 From: Roberto Black MD [...] stopping this with poor vascular flow distally. [facility] Medical History CAD (coronary artery disease), unga coronary artery CHF (congestive heart failure) GERD [...] 78.3 H Lymph % (Auto) 13.9 L Wilkinson % (Auto) 5.8 Eos % (Auto) 0.8 [...] mg PO DAILY [facility] Referrals: Riccardo Ng MD [Med Staff - Active Staff] - Keep Diandra appointment [facility] Lainez [Primary Care Provider] - Disposition Disposition: Home, Self Care What to do if you have Problems For any increased pain, shortness of breath, bleeding, nausea or vomiting, chestpain, or any unexpected problems, contact your Primary Care Provider. Call [facility] ([phone]) or report to the closest Emergency Room. Call 911 if necessary. 08/14/22 1644 <Electronically signed by Roberto Black MD> Cosigner Signature (if applicable): CC: [facility] ~ Signed [facility] Work Phone: [phone]) 277-861803-09-2023 Procedure [facility] 07-25-[address] Mcneal [facility] July 25, 2022 11:38am Note Date/Time July 25, 2022 9:21am [facility] Medical Records Department [address] [place] [address] Emergency Department Summary 07/25/22 MR#: [id number] Acct: [id number] Name: TRENTON JACKSON Rep #:[id number] : 1970 51 From: Vidal Mcneal MD [...] chills. She is denying any urinary symptoms. [facility] Medical History CAD (coronary artery disease), unga coronary artery CHF (congestive heart failure) Diabetes [...] 78.2 H Lymph % (Auto) 13.7 L Wilkinson % (Auto) 5.2 Eos % (Auto) 1.6 [...] rhythm with a rate of 115. Normal NE interval. QTc is 478. Nonspecific changes throughout, [...] your Primary Care Provider. Call [facility] ([phone]) or report to the closest Emergency Room. Call 911 if necessary. 07/25/22 1138 <Electronically signed by Vidal Mcneal MD> Cosigner Signature (if applicable): CC: Dr. 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 acute [facility] Work Phone: Evaluation note* Diagnosis Onset [...] acidosis acute Peripheral vascular disease, unspecified acute [facility] Work Phone: Evaluation note* Diagnosis Onset [...] acute Diabetes mellitus, type 2 ch ronic [facility] Work Phone: Evaluation note* Diagnosis Onset [...] Foot pain, right resolved Lactic acidosis resolved [facility] Work Phone: Evaluation note* Diagnosis Onset Date Resolution Status Acute dyspnea acute Chest pain acute Hypoxemia acute Pericardial effusion acute Pleural effusion acute [facility] Work Phone: Evaluation note* Diagnosis Onset Date Resolution Status Chest pain resolved Pleural effusion resolved Bilateral pleural effusion a cute Chest pain acute Hypoxia acute Acute exacerbation of CHF (congestive heart failure) chronic [facility] Work Phone: Evaluation note* Diagnosis Onset Date Resolution Status Chest pain resolved Pleural effusion resolved Bilateral pleural effusion a cute Acute exacerbation of CHF (congestive heart failure) resolved Chest pain resolved Hypoxia resolved CAD (coronary artery disease), unga coronary artery acute Essential hypertension acute 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 CAD (coronary artery disease), unga coronary artery acute Essential hypertension acute Hypersomnolence acute 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 [facility] Work Phone: Evaluation note* Diagnosis Onset Date Resolution Status Chest pain resolved Pleural effusion resolved Bilateral pleural effusion a cute Acute exacerbation of CHF (congestive heart failure) resolved Chest pain resolved Hypoxia resolved CAD (coronary artery disease), unga coronary artery acute Essential hypertension acute 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 CAD (coronary artery disease), unga coronary artery acute Essential hypertension acute Hypersomnolence acute 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 Epigastric pain acute GERD (gastroesophageal reflux disease) acute Acute dyspnea acute CHF (congestive heart failure) acute History of cardiomyopathy ac [place] History of coronary artery disease acute Hyperglycemia due to diabetes mellitus acute Hypoxia acute [facility] Work Phone: Evaluation note* Diagnosis Onset Date Resolution Status Bilateral pleural effusion a cute Acute exacerbation of CHF (congestive heart failure) resolved Chest pain resolved Hypoxia resolved CAD (coronary artery disease), unga coronary artery acute Essential hypertension acute 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 CAD (coronary artery disease), unga coronary artery acute Essential hypertension acute Hypersomnolence acute 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 Epigastric pain acute GERD (gastroesophageal reflux disease) acute Acute dyspnea acute CHF (congestive heart failure) acute History of cardiomyopathy [place] History of coronary artery disease acute Hyperglycemia due to diabetes mellitus acute Hypoxia acute [facility] Work Phone: Evaluation note* Diagnosis Onset Date Resolution Status CAD (coronary artery disease), unga coronary artery acute Essential hypertension acute 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 CAD (coronary artery disease), unga coronary artery acute Essential hypertension acute Hypersomnolence acute 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 Epigastric pain acute GERD (gastroesophageal reflux disease) acute Acute dyspnea acute CHF (congestive heart failure) acute History of cardiomyopathy [place] History of coronary artery disease acute Hyperglycemia due to diabetes mellitus acute Hypoxia acute Acute dyspnea acute Bilateral pleural effusion a cute CHF (congestive heart failure) acute Hypoxia acute [facility] Work Phone: Evaluation note* Diagnosis Onset Date Resolution Status Acute dyspnea acute History of cardiomyopathy [place] History of coronary artery disease acute Hyperglycemia due to diabetes mellitus acute Hypoxia resolved Acute dyspnea acute Bilateral pleural effusion a cute Hypoxia resolved [facility] Work Phone: Evaluation note* Diagnosis Onset Date Resolution Status Acute dyspnea acute Bilateral pleural effusion a cute Hypoxia resolved [facility] Work Phone: Evaluation note* Diagnosis Closed 3-part fracture of proximal humerus, right, with routine healing, subsequent encounter- Primary [facility] Author Rosaura Crane [facility] Note Date/Time September 07, 2024 10:0 0pm [facility] Medical Records Department [address] [place] [address] H&P Exam - Hospitalist 09/07/242133 MR#: [id number] Acct: [id number] Name: TRENTON JACKSON Rep #:[id number] : 1970 54 From: Rosaura Crane MD PCP: RUTH Lawrence, SHANK ARCHER-C Statu s:ADM REHAN Location: [place] [address] HPI - General General Date of Admission: [...] which resolved who re- presents to the [facility] ED on 09/07/24 with history of [...] not obtained upon requested evaluation of patient. [facility] Medical History L5 vertebral fracture ESBL (extended [...] (congestive heart failure) CAD (coronary artery disease), unga coronary artery Home Medications ?Medication ?Instructions ?Recorded [...] IN 1 - 2 pump subdermal Q6H NE N FOR 02/14/24 Unknown History saltsable FEET [...] % (Auto) Cancelled, Lymph % (Auto) Cancelled, Wilkinson % (Auto) Cancelled, Eos % (Auto) Cancelled, [...] Drop Cells Cancelled, Ovalocytes Cancelled, Stomatocytes Cancelled, [place] Bodies Cancelled, Castell Cells Cancelled, Bite Cells Cancelled, Crenated Cell [...] 77.8 H, Lymph % (Auto) 14.5 L, Wilkinson % (Auto) 5.0, Eos % (Auto) 1.7, [...] recommend MRI for further characterization. [facility] Assessment & Plan Assessment/Plan (1) Intractable [...] which resolved who re- presents to the [facility] ED on 09/07/24 with history of [...] 16 minutes. Charges/Coding Visit Charges Inpatient E&M: 63565 Init Hosp L3 Procedures Hospitalists Procedures: 94983 Advncd Care Plan 30 Min 09/07/24 2200 <Electronically signed by Rosaura Crane MD> Cosigner Signature (if applicable): CC: [facility] SHANK ARCHER-C Zohreh Mckeon; Dr. Rosaura Crane MD~ Signed [facility] Work Phone: Hospital Discharge instructions Additional Instructions Continue oral fluids. Zofran as needed. Take pain medicines as prescribed for your fracture. Future prescriptions for pain medicines need to be provided by your PCP or your specialist. Glucose is 402, normal gap, you are not in DKA. Take your medications at home. Follow-up with your doctor.[facility] Work Phone: Hospital Discharge instructions Additional Instructions Hip x-ray negative. Labs are stable. Follow-up with your doctor.[facility] Work Phone: Hospital Discharge instructions Additional Instructions I given you a month supply of gabapentin. You will take 300 mg twice a day for the first 3 days, then you may continue 300 mg 3 times a day for the remainder of the prescription. You need to follow-up with your PCP, I also gave you pain management.[facility] Work Phone: Hospital Discharge instructions Additional Instructions Plenty of fluids and rest. Slowly increase your diet as tolerated. Zofran as needed for nausea. You may swallow or let it dissolve under your tongue. Follow-up with your primary care provider if not improving or return if feeling worse or unable to keep fluids down. Tylenol for hip and knee pain. Follow-up if not improving.[facility] Work Phone: Hospital Discharge instructions Additional Instructions Continue your previous pain medications. Your postoperative wound does not appear to be acutely infected.[facility] Work Phone: Hospital Discharge instructions Additional Instructions Reviewed your MRI and patient recently. Stable L3 fracture, stable L5 fracture. Noted disc herniation L3-L4, this is likely culprit of your pain on your left leg. Continue your gabapentin 300 g 3 times a day as you have at home. support specialist your oxycodone that was written on discharge to take as needed. Use Zofran as needed. Follow-up with pain management and orthopedic spine for outpatient evaluation. Monitor your glucose with your insulin.[facility] Work Phone: Hospital Discharge instructions Additional Instructions Workup negative for DKA. continue toAvoid marijuana use. Use your nausea medicines as needed. Follow-up was given.[facility] Work Phone: Hospital Discharge instructionsAdditional Instructions You were given IV fluids and insulin to treat your high blood sugar. I think the pain you have in your legs is neuropathy. This means it is nerve pain. It is treated with medications like gabapentin. I recommend you talk to your prescribing doctor for further care. [facility] Work Phone: Reason for referral (narrative)* Consultation (Routine) - Pending Review Specialty Diagnoses / Procedures Referred By Angelo sapp Referred To Contact Physical Therapy Diagnoses Closed 3-part fracture of proximal humerus, right, with routine healing, subsequent encounter Procedures NE OFFICE/OUTPATIENT NEW HIGH MDM 60-74 MINUTES Jerry Jones PA-C [address] [place] [id number] Referral ID Status Reason Start Date Expiration Date Visits Requested Visits Authorized [id number] Pending Review Specialty Services Required 06/08/2022 12/05/2022 99 99 [facility] for referral (narrative)No reason for referral information availableWLouis Stokes [facility] Work Phone: Summary Purpose Family History No [...] Will No March 27 10:33am Power of Lead Caster No March 27, 2022 10:33am Advance Directive Response Recorded Date/ Time Advance Directives No February 01, 2016 5:21am Living Will No April 17 4:47pm Power of Lead Caster No April 17, 2022 4:47pm Advance Directive Response Recorded Date/ Time Advance Directives No February 01, 2016 5:21am Living Will No April 18 022 3:36pm Power of Lead Caster No April 18, 2022 3:36pm Advance Directive Response Recorded Date/ Time Advance Directives No February 01, 2016 5:21am Living Will No May 09 9:47pm Power of Lead Caster No May 09, 2022 9:47pm Advance Directive Response Recorded Date/ Time Advance Directives No February 01, 2016 5:21am Living Will No May 19 5:31pm Power of Lead Caster No Jasiel 16th, 2022 5:31pm Advance Directive Response Recorded Date/ Time Advance Directives No February 01, 2016 5:21am Living Will No July 25, 2 023 9:18am Power of Lead Caster No July 25, 2022 9:18am Advance Directive Response Recorded Date/ Time Advance Directives No February 01, 2016 5:21am Living Will No August 03, 2022 12:21pm Power of Lead Caster No August 03 12:21pm Advance Directive Response Recorded Date/ Time Advance Directives No August 10 7:07am Living Will No August 10, 2022 7:07am Power of Lead Caster No August 10 7:07am Advance Directive Response Recorded Date/ Time Advance Directives No August 10 8:07am Living Will No August 14, 2022 1:53pm Power of Lead Caster No August 14 1:53pm Advance Directive Response Recorded Date/ Time Advance Directives No August 10 8:07am Living Will No August 30, 2022 4:44pm Power of Lead Caster No August 30 4:44pm Advance Directive Response Recorded Date/ Time Advance Directives No August 10 8:07am Living Will No September 05, 2022 12:31pm Power of Lead Caster No September 05 12:31pm Advance Directive Response Recorded Date/ Time Advance Directives No August 10 8:07am Living Will No September 09, 2022 7:25pm Power of Lead Caster No September 09 7:25pm Advance Directive Response Recorded Date/ Time Advance Directives No August 10 8:07am Living Will No September 11, 2022 3:01pm Power of Lead Caster No September 11 3:01pm Advance Directive Response Recorded Date/ Time Advance Directives No August 10 8:07am Living Will No September 18, 2022 2:32pm Power of Lead Caster No September 18 2:32pm Advance Directive Response Recorded Date/ Time Advance Directives No August 10 8:07am Living Will No October 01, 2022 11:14am Power of Lead Caster No October 01 11:14am Advance Directive Response Recorded Date/ Time Advance Directives No August 10 8:07am Living Will No January 01, 2023 12:13pm Power of Lead Caster No January 01 12:13pm Advance Directive Response Recorded Date/ Time Advance Directives No August 10 8:07am Living Will No January 01, 2023 5:09pm Power of Lead Caster No January 01 5:09pm Advance Directive Response Recorded Date/ Time Advance Directives No August 10 8:07am Living Will No February 02, 2 023 11:25am Power of Lead Caster No February 02, 2023 11:25am Advance Directive Response Recorded Date/ Time Advance Directives No August 10 8:07am Living Will No February 02, 2 023 8:41pm Power of Lead Caster No February 02, 2023 8:41pm Advance Directive Response Recorded Date/ Time Advance Directives No August 10 7:07am Living Will No February 02, 2 023 7:41pm Power of Lead Caster No February 02, 2023 7:41pm Advance Directive Response Recorded Date/ Time Advance Directives No August 10 7:07am Living Will No May 03, 2 023 1:37pm Power of Lead Caster No May 03, 2023 1:37pm Advance Directive Response Recorded Date/ Time Advance Directives No August 10 7:07am Living Will No May 03, 2 023 5:41pm Power of Lead Caster No May 03, 2023 5:41pm Advance Directive Response Recorded Date/ Time Advance Directives No August 10 7:07am Living Will No May 22, 2 023 2:33pm Power of Lead Caster No May 22, 2023 2:33pm Advance Directive Response Recorded Date/ Time Advance Directives No August 10 7:07am Living Will No June 13 3:00am Power of Lead Caster No June 13, 2023 3:00am Advance Directive Response Recorded Date/ Time Advance Directives No August 10 7:07am Living Will No June 19 9:35am Power of Lead Caster No June 19, 2023 9:35am Advance Directive Response Recorded Date/ Time Advance Directives No August 10 8:07am Living Will No September 02, 2023 7:42am Power of Lead Caster No September 01 7:42am Date Activated Date [...] October 15, 2023 5 :10pm Power of Lead Caster No October 15, 2023 5:10pm Advance Directive Response Recorded Date/ Time Living Will No April 25 024 5:40pm Do you have a Healthcare Power of Lead Caster? No April 25, 2024 5:40pm Living Will No June 29 10:04pm Do you have a Healthcare Power of Lead Caster? No June 29, 2024 10:04pm Living Will No August 26, 2024 10:15am Do you have a Healthcare Power of Lead Caster? No August 26, 2024 10:15am Living Will No August 01 025 2:53pm Do you have a Healthcare Power of Lead Caster? No August 01, 2024 2:53pm Advance Directives No August 10 8:07am Advance Directive Response Recorded Date/ Time Living Will No June 29 10:04pm Do you have a Healthcare Power of Lead Caster? No June 29, 2024 10:04pm Living Will No August 26, 2024 8:30pm Do you have a Healthcare Power of Lead Caster? No August 26, 2024 8:30pm Living Will No August 01 025 2:53pm Do you have a Healthcare Power of Lead Caster? No August 01, 2024 2:53pm Advance Directives No August 10 8:07am Advance Directive Response Recorded Date/ Time Living Will No June 29 10:04pm Do you have a Healthcare Power of Lead Caster? No June 29, 2024 10:04pm Living Will No August 26, 2024 8:30pm Do you have a Healthcare Power of Lead Caster? No August 26, 2024 8:30pm Living Will No August 01, 2 025 2:53pm Do you have a Healthcare Power of Lead Caster? No August 01, 2024 2:53pm Living Will No September 05, 2024 10:31am Do you have a Healthcare Power of Lead Caster? No September 05, 2024 10:31am Advance Directives No August 10 8:07am Advance Directive Response Recorded Date/ Time Living Will No June 29 10:04pm Do you have a Healthcare Power of Lead Caster? No June 29, 2024 10:04pm Living Will No August 26, 2024 8:30pm Do you have a Healthcare Power of Lead Caster? No August 26, 2024 8:30pm Living Will No September 07, 2024 3:55pm Do you have a Healthcare Power of Lead Caster? No September 07, 2024 3:55pm Living Will No August 01, 2 025 2:53pm Do you have a Healthcare Power of Lead Caster? No August 01, 2024 2:53pm Living Will No September 05, 2024 10:31am Do you have a Healthcare Power of Lead Caster? No September 05, 2024 10:31am Advance Directives No August 10 8:07am Advance Directive Response Recorded Date/ Time Living Will No June 29 10:04pm Do you have a Healthcare Power of Lead Caster? No June 29, 2024 10:04pm Living Will No August 26, 2024 8:30pm Do you have a Healthcare Power of Lead Caster? No August 26, 2024 8:30pm Living Will No September 07, 2024 10:21pm Do you have a Healthcare Power of Lead Caster? No September 07, 2024 10:21pm Living Will No August 01, 2 025 2:53pm Do you have a Healthcare Power of Lead Caster? No August 01, 2024 2:53pm Living Will No September 05, 2024 10:31am Do you have a Healthcare Power of Lead Caster? No September 05, 2024 10:31am Advance Directives No August 10 8:07am Advance Directive Response Recorded Date/ Time Living Will No June 29 10:04pm Do you have a Healthcare Power of Lead Caster? No June 29, 2024 10:04pm Living Will No August 26, 2024 8:30pm Do you have a Healthcare Power of Lead Caster? No August 26, 2024 8:30pm Living Will No September 07, 2024 10:21pm Do you have a Healthcare Power of Lead Caster? No September 07, 2024 10:21pm Living Will No September 21, 2024 12:25pm Do you have a Healthcare Power of Lead Caster? No September 21, 2024 12:25pm Living Will No August 01, 025 2:53pm Do you have a Healthcare Power of Lead Caster? No August 01, 2024 2:53pm Living Will No September 05, 2024 10:31am Do you have a Healthcare Power of Lead Caster? No September 05, 2024 10:31am Advance Directives No August 10 8:07am Advance Directive Response Recorded Date/ Time Living Will No June 29 10:04pm Do you have a Healthcare Power of Lead Caster? No June 29, 2024 10:04pm Living Will No August 26, 2024 8:30pm Do you have a Healthcare Power of Lead Caster? No August 26, 2024 8:30pm Living Will No September 07, 2024 10:21pm Do you have a Healthcare Power of Lead Caster? No September 07, 2024 10:21pm Living Will No September 21, 2024 12:25pm Do you have a Healthcare Power of Lead Caster? No September 21, 2024 12:25pm Do you have a Healthcare Power of Lead Caster? No September 29, 2024 10:26am Living Will No August 01 2:53pm Do you have a Healthcare Power of Lead Caster? No August 01, 2024 2:53pm Living Will No September 05, 2024 10:31am Do you have a Healthcare Power of Lead Caster? No September 05, 2024 10:31am Advance Directives No August 10 8:07am Advance Directive Response Recorded Date/ Time Living Will No August 26, 2024 8:30pm Do you have a Healthcare Power of Lead Caster? No August 26, 2024 8:30pm Living Will No September 07, 2024 10:21pm Do you have a Healthcare Power of Lead Caster? No September 07, 2024 10:21pm Living Will No September 21, 2024 12:25pm Do you have a Healthcare Power of Lead Caster? No September 21, 2024 12:25pm Do you have a Healthcare Power of Lead Caster? No September 29, 2024 10:26am Living Will No September 05, 2024 10:31am Do you have a Healthcare Power of Lead Caster? No September 05, 2024 10:31am Do you have a Healthcare Power of Lead Caster? No December 12, 2024 4:18pm Advance Directives No August 10 8:07am Hospital Course Note HNO ID: [id number] Author: Paige Yao) Lizz Service: Hospital Medicine [...] (more content not included)... Note HNO ID: [id number] Author: Rosi Morrow Service: Hospital Medicine Author [...] (more content not included)... Note HNO ID: [id number] Author: Maria Isabel Sherman Service: Clinical Cardiology [...] at Discharge: .Home Vital Signs: T [id number] [id number]% Date/Time09/29 11: 11: 11: 11: 11:35 Range(36.1C [...] not included)... Procedure Findings Note HNO ID: [id number] Author: Maria Isabel Sherman Service: Clinical Cardiology [...] N/V, BACK PAIN, ARM PAIN CHEST PAIN [facility] Hospital POSSIBLE INTERVENTION POSSIBLE INTERVENTION Reason [...] Congestive heart failure Congestive heart failure EST ([facility]) 2 wk fu per VIDEO CONFERENCE SPECIALIST G47.10 Reason for Visit Chest pain Pleural effusion Bilateral pleural effusion Acute exacerbation of CHF (congestive heart failure) Chest pain Hypoxia CAD (coronary artery disease), unga coronary artery Essential hypertension Ischemic cardiomyopathy CAD (coronary artery disease), unga coronary artery Essential hypertension Hypersomnolence Ischemic cardiomyopathy Chief Complaint CHF, PLEURITIC CHEST PAIN CHF, PLEURITIC CHEST PAIN CHF, PLEURITIC CHEST PAIN CHF, PLEURITIC CHEST PAIN CHF Congestive heart failure Congestive heart failure EST ([facility]) 2 wk fu per VIDEO CONFERENCE SPECIALIST G47.10 Epigastric Pain/Recurrent Vomiting Reason for Visit Chest pain Pleural effusion Bilateral pleural effusion Acute exacerbation of CHF (congestive heart failure) Chest pain Hypoxia CAD (coronary artery disease), unga coronary artery Essential hypertension Ischemic cardiomyopathy CAD (coronary artery disease), unga coronary artery Essential hypertension Hypersomnolence Ischemic cardiomyopathy Chief Complaint CHF, PLEURITIC CHEST PAIN CHF, PLEURITIC CHEST PAIN CHF Congestive heart failure Congestive heart failure EST ([facility]) 2 wk fu per VIDEO CONFERENCE SPECIALIST G47.10 Epigastric Pain/Recurrent Vomiting CHF EXACERBATION Reason for Visit Chest pain Pleural effusion Bilateral pleural effusion Acute exacerbation of CHF (congestive heart failure) Chest pain Hypoxia CAD (coronary artery disease), unga coronary artery Essential hypertension Ischemic cardiomyopathy CAD (coronary artery disease), unga coronary artery Essential hypertension Hypersomnolence Ischemic cardiomyopathy Epigastric pain GERD (gastroesophageal reflux disease) Acute dyspnea CHF (congestive heart failure) History of cardiomyopathy History of coronary artery disease Hyperglycemia due to diabetes mellitus Hypoxia Chief Complaint CHF Congestive heart failure Congestive heart failure EST ([facility]) 2 wk fu per VIDEO CONFERENCE SPECIALIST G47.10 Epigastric Pain/Recurrent Vomiting CHF EXACERBATION CHF EXACERBATION CHF EXACERBATION CHF EXACERBATION CHF EXACERBATION CHF EXACERBATION CHF EXACERBATION CHF EXACERBATION Reason for Visit Bilateral pleural ef fusion Acute exacerbation of CHF (congestive heart failure) Chest pain Hypoxia CAD (coronary artery disease), unga coronary artery Essential hypertension Ischemic cardiomyopathy CAD (coronary artery disease), unga coronary artery Essential hypertension Hypersomnolence Ischemic cardiomyopathy Epigastric pain GERD (gastroesophageal reflux disease) Acute dyspnea CHF (congestive heart failure) History of cardiomyopathy History of coronary artery disease Hyperglycemia due to diabetes mellitus Hypoxia Chief Complaint CHF Congestive heart failure Congestive heart failure EST ([facility]) 2 wk fu per VIDEO CONFERENCE SPECIALIST G47.10 Epigastric Pain/Recurrent Vomiting CHF EXACERBATION CHF EXACERBATION CHF EXACERBATION CHF EXACERBATION CHF EXACERBATION CHF EXACERBATION CHF EXACERBATION CHF EXACERBATION foot pain Reason for Visit Bilateral pleural ef fusion Acute exacerbation of CHF (congestive heart failure) Chest pain Hypoxia CAD (coronary artery disease), unga coronary artery Essential hypertension Ischemic cardiomyopathy CAD (coronary artery disease), unga coronary artery Essential hypertension Hypersomnolence Ischemic cardiomyopathy Epigastric pain GERD (gastroesophageal reflux disease) Acute dyspnea CHF (congestive heart failure) History of cardiomyopathy History of coronary artery disease Hyperglycemia due to diabetes mellitus Hypoxia Chief Complaint EST ([facility]) 2 wk fu per VIDEO CONFERENCE SPECIALIST G47.10 Epigastric Pain/Recurrent Vomiting CHF EXACERBATION CHF EXACERBATION CHF EXACERBATION CHF EXACERBATION CHF EXACERBATION CHF EXACERBATION CHF EXACERBATION CHF EXACERBATION foot pain n/v ACUTE ON CHRONIC HFREF Reason for Visit CAD (coronary artery disease), unga coronary artery Essential hypertension Ischemic cardiomyopathy CAD (coronary artery disease), unga coronary artery Essential hypertension Hypersomnolence Ischemic cardiomyopathy Epigastric pain GERD (gastroesophageal reflux disease) Acute dyspnea CHF (congestive heart failure) History of cardiomyopathy History of coronary artery disease Hyperglycemia due to diabetes mellitus Hypoxia Acute dyspnea Bilateral pleural effusion CHF (congestive heart failure) Hypoxia Chief Complaint EST ([facility]) 2 wk fu per VIDEO CONFERENCE SPECIALIST G47.10 Epigastric Pain/Recurrent Vomiting CHF EXACERBATION CHF EXACERBATION CHF EXACERBATION CHF EXACERBATION CHF EXACERBATION CHF EXACERBATION CHF EXACERBATION CHF EXACERBATION foot pain n/v ACUTE ON CHRONIC HFREF ACUTE ON CHRONIC HFREF ACUTE ON CHRONIC HFREF ACUTE ON CHRONIC HFREF ACUTE ON CHRONIC HFREF Reason for Visit CAD (coronary artery disease), unga coronary artery Essential hypertension Ischemic cardiomyopathy CAD (coronary artery disease), unga coronary artery Essential hypertension Hypersomnolence Ischemic cardiomyopathy Epigastric pain GERD (gastroesophageal reflux disease) Acute dyspnea CHF (congestive heart failure) History of cardiomyopathy History of coronary artery disease Hyperglycemia due to diabetes mellitus Hypoxia Acute dyspnea Bilateral pleural effusion CHF (congestive heart failure) Hypoxia Chief Complaint EST ([facility]) 2 wk fu per VIDEO CONFERENCE SPECIALIST G47.10 Epigastric Pain/Recurrent Vomiting CHF EXACERBATION CHF EXACERBATION CHF EXACERBATION CHF EXACERBATION CHF EXACERBATION CHF EXACERBATION CHF EXACERBATION CHF EXACERBATION foot pain n/v ACUTE ON CHRONIC HFREF ACUTE ON CHRONIC HFREF ACUTE ON CHRONIC HFREF ACUTE ON CHRONIC HFREF ACUTE ON CHRONIC HFREF fall Reason for Visit CAD (coronary artery disease), unga coronary artery Essential hypertension Ischemic cardiomyopathy CAD (coronary artery disease), unga coronary artery Essential hypertension Hypersomnolence Ischemic cardiomyopathy [...] effusion Hypoxia Chief Complaint fall [employer] WORK [employer] WORK HIP PAIN Chief Complaint Admit [...] 2024 8:03pm PERIPHERAL [facility] August 27, 2024 7:05am PERIPHERAL [employer] [facility] August 27, 2024 7:25am PERIPHERAL [employer]ERIAL [employer] [facility] August 28, 2024 5:55pm PERIPHERAL [employer]ERIAL CR[employer] August 29, 2024 9:45am PERIPHERAL ARTERIAL CR[employer] [facility] August 30, 2024 3:28pm PERIPHERAL [employer] [facility] August 31, 2024 8:54am PERIPHERAL [employer] September 01, 2024 8:19am PERIP[employer] [facility] September 02, 2024 7:51am n/v/d, abd [...] 2024 1:45pm PERIP[employer] [facility] August 26, 2024 8:03pm PERIPHERAL [employer] [facility] August 27, 2024 7:05am PERIPHERAL [employer] CR[employer] [facility] August 27, 2024 7:25am PERIPHERAL [employer] CR[employer] [facility] August 28, 2024 5:55pm PERIPHERAL ARTERIAL CRITICAL STENOSIS [facility] August 29, 2024 9:45am PERIPHERAL ARTERIAL CRITICAL ST[facility]OS[facility] August 30, 2024 3:28pm PERIPHERAL ARTERIAL CRITICAL STENOSIS [facility] August 31, 2024 8:54am PERIPHERAL ARTERIAL CRITICAL STENOSIS [facility] September 01, 2024 8:19am PERIPHERAL ARTERIAL CRITICAL STENOSIS [facility] September 02, 2024 7:51am n/v/d, abd [...] 2024 3:28pm PERIPHERAL [employer] CR[employer] [facility] August 31, 2024 8:54am PERIPHERAL ARTERIAL CRITICAL [facility] September 01, 2024 8:19am PERIPHERAL ART[employer] CRITICAL [facility] September 02, 2024 7:51am n/v/d, abd [...] Complaint Admit Date PERIPHERAL [employer] CRITICAL STENOSIS [facility] August 26, 2024 8:03pm PERIPHERAL [employer]ERIAL CRITICAL STENOSIS [facility] August 27, 2024 7:05am PERIPHERAL ARTERIAL CRITICAL STENOSIS [facility] August 27, 2024 7:25am PERIPHERAL ARTERIAL CRITICAL STENOSIS [facility] August 28, 2024 5:55pm PERIPHERAL ARTERIAL CRITICAL STENOSIS [facility] August 29, 2024 9:45am PERIPHERAL ARTERIAL CRITICAL STENOSIS [facility] August 30, 2024 3:28pm PERIPHERAL ARTERIAL CRITICAL STENOSIS [facility] August 31, 2024 8:54am PERIPHERAL ARTERIAL CRITICAL STENOSIS [facility] September 01, 2024 8:19am PERIPHERAL ARTERIAL CRITICAL STENOSIS [facility] September 02, 2024 7:51am n/v/d, abd [...] section and content) DATE CREATED AUTHOR 07/24/2018 [facility] DATE CREATED AUTHOR AUTHOR'S ORGANIZ ATION 04/08/2019 [facility] DATE CREATED AUTHOR AUTHOR'S ORGANIZ ATION 08/28/2019 [facility] DATE CREATED AUTHOR AUTHOR'S ORGANIZ ATION 06/09/2020 [facility] DATE CREATED AUTHOR AUTHOR'S ORGANIZ ATION 06/09/2020 [employer] DATE CREATED AUTHOR AUTHOR'S ORGANIZ ATION 08/17/2021 [facility] DATE CREATED AUTHOR AUTHOR'S ORGANIZ ATION 05/06/2022 [facility] DATE CREATED AUTHOR AUTHOR'S ORGANIZ ATION 09/07/2022 [facility] DATE CREATED AUTHOR AUTHOR'S ORGANIZ ATION 05/30/2024 [facility] DATE CREATED AUTHOR AUTHOR'S ORGANIZ ATION 07/07/2024 [facility] DATE CREATED AUTHOR AUTHOR'S ORGANIZ ATION 09/14/2024 [facility] DATE CREATED AUTHOR AUTHOR'S ORGANIZ ATION 12/24/2024 [facility] <item> Privacy Markings (unrecogniz ed section and [...] Team Status: Active Member Role Status Dates [place] [facility] Primary Care Provider Active ROBERT HERNANDEZ [...] Lainez Primary Care Provider Active Zohreh Mckeon SHANK ARCHER, SHANK ARCHER-C Attending Provider Active Team Status: Inactive Member Role Status Dates Dr. Nathaly Lainez Primary Care Provider Active Dr. Vidal Mcneal MD Emergency Provider Active Team Status: Inactive Member Role Status Dates Dr. Nathaly Lainez Primary Care Provider Active Dr. Riccardo Hillman DO Emergency Provider Active Team Status: Active Member Role Status Dates Dr. Uziel Conteh MD Family Provider Active [facility] Primary Care Provider A ctive Team Status: Inactive Member Role Status Dates Dr. Nathaly Lainez Primary Care Provider, Referring P rovider Active Veda SALAZAR, PA Attending Provider Active Team Status: Active Member Role Status Dates Dr. Riccardo Ng MD Attending Provider, Referring Provider, Other Provider Active [facility] Primary Care Provider A ctive Team [...] MD Attending Provider, Referring Pro vider Active [facility] Primary Care Provider A ctive Team Status: Inactive Member Role Status Dates [facility] Primary Care Provider A ctive Dr. Roberto Black MD Emergency Provider Active Team Status: Inactive Member Role Status Dates [facility] Primary Care Provider, Referring Provider Active Veda Mathis PA, PA Attending Provider Active Team Status: Active Member Role Status Dates [facility] Primary Care Provider A ctive Dr. Riccardo Ng MD Attending Provider Active Team Status: Inactive Member Role Status Dates Dr. Serrato [facility] Primary Care Provider Active Dr. Ananda Coyle MD Attending Provider, Emergency Pro vider Active Team Status: Inactive Member Role Status Dates MARTIN Sheldon Attending Provider, Referrin g Provider Active [facility] Primary Care Provider A ctive Team Status: Inactive Member Role Status Dates [facility] Primary Care Provider A ctive Dr. Roberto Black MD Attending Provider, Emergency Provider Active Team Status: Active Member Role Status Dates [facility] Primary Care Provider A ctchristianne Rawls MD Emergency Provider Active Dr. Jeison Forde , DPM Admit Provider, Attending Pro vider Active Dr. Sabina Rosenberg DO Other Provider Active Team Status: Active Member Role Status Dates [facility] Primary Care Provider A dayday Rawls MD Emergency Provider Active Dr. Jeison Forde , DPM Admit Provider, Other Provide r Active Dr. Sabina Rosenberg DO Attending Provider, Other Pro vider Active Team Status: Active Member Role Status Dates [facility] Primary Care Provider A ctive Dr. Sanjiv Alcantar MD Attending Provider Activ e Team Status: Inactive Member Role Status Dates [facility] Primary Care Provider A ctchristianne Rawls MD Emergency Provider Active Dr. Jeison Forde , DPM Admit Provider, Attending Pro vider Active Dr. Sabina Rosenberg DO Other Provider Active Team Status: Active Member Role Status [facility] Primary Care Provider A dayday Rawls MD Emergency Provider Active Dr. Jeison Forde , DPM Admit Provider, Referring Provider, Other Provider Active Dr. Sabina Rosenberg DO Attending Provider, Other Pro vider Active Team Status: Inactive Member Role Status [facility] Primary Care Provider A ctive Dr. Yvette Hanley , Emergency Provider Active Team Status: Active Member Role Status [facility] Primary Care Provider A ctive Dr. Riccardo Ng MD Attending Provider Active MARTIN Sheldon Referring Provider Active Team Status: Active Member Role Status Dates [facility] Primary Care Provider A ctive MARTIN Sheldon Attending Provider, Referrin g Provider Active Team Status: Inactive Member Role Status Dates [facility] Primary Care Provider A ctive Dr. Griselda Christina MD Emergency Provider Active Team Status: Inactive Member Role Status Dates [facility] Primary Care Provider A ctive MARTIN Sheldon Attending Provider, Referrin g Provider Active Team Status: Inactive Member Role Status Dates [facility] Primary Care Provider A ctive Dr. Yvette Hanley DO Attending Provider, Emergency Pro vider Active Team Status: Inactive Member Role Status Dates [facility] Primary Care Provider A ctive Dr. Griselda Christina MD Attending Provider, Emergency Provider Active Team Status: Inactive Member Role Status Dates [facility] Primary Care Provider A ctive Dr. Zack Card DO Emergency Provider Active Team Status: Inactive Member Role Status Dates [facility] Primary Care Provider A ctive Dr. Zack Card DO Attending Provider, Emergency Provide r Active Team Status: Inactive Member Role Status Dates [facility] Primary Care Provider A ctive Dr. Ananda Coyle MD Referring Provider, Emergency Pro vider Active Team Status: Inactive Member Role Status Dates Dr. Serrato [facility] Primary Care Provider, Referring P rovider Active MARTIN Horn Attending Provider Active Team Status: Inactive Member Role Status Dates [facility] Primary Care Provider, Referring Provider Active MARTIN Horn Attending Provider Active Team Status: Active Member Role Status Dates [facility] Primary Care Provider A ctive Dr. Riccardo Ng MD Attending Provider Active MARTIN Horn Referring Provider Active Team Status: Active Member Role Status Dates [facility] Primary Care Provider A ctive Dr. Riccardo Ng MD Attending Provider Active Dr. Yvette Hanley DO Referring Provider Active Team Status: Inactive Member Role Status Dates MARTIN Horn Attending Provider, Referring Provider Active [facility] Primary Care Provider A ctive Team Status: Inactive Member Role Status Dates [facility] Primary Care Provider A ctive MARITN Horn Attending Provider, Referring Provider Active Team Status: Inactive Member Role Status Dates [facility] Primary Care Provider A ctive Dr. Ananda Coyle MD Attending Provider, Referring Provider, Emergency Provider Active Team Status: Active Member Role Status Dates [facility] Primary Care Provider A ctive Dr. Yvette Hanley , DO Emergency Provider Active Dr. Sabina Rosenberg DO Admit Provider, Attending Pro vider Active Team Status: Active Member Role Status [facility] Primary Care Provider A ctive Dr. Yvette Hanley , DO Emergency Provider Active Dr. Sabina Rosenberg , Admit Provider, Attending Provider, Other Provider Active Team Status: Inactive Member Role Status Dates [facility] Primary Care Provider A ctive Dr. Yvette Hanley , DO Emergency Provider Active Dr. Sabina Rosenberg , Admit Provider, Attending Pro vider Active Team Status: Active Member Role Status [facility] Primary Care Provider A ctive Dr. Zack Card , DO Emergency Provider Active Dr. Brandon Adames MD Admit Provi dianelys, Attending Provider, Other Provider Active Team Status: Active Member Role Status [facility] Primary Care Provider A ctive Dr. Zack Card , DO Emergency Provider Active Dr. Brandon Adames MD Admit Provider, Attending Provider Active Team Status: Inactive Member Role Status [facility] Primary Care Provider A ctive Dr. Zack Card , DO Emergency Provider Active Dr. Brandon Adames MD Admit Provider, Other Pro vider Active Dr. Sabina Rosenberg , Attending Provider Active Team Status: Inactive Member Role Status [facility] Primary Care Provider, Referring Provider Active Dr. Alli Brito MD Attending Provider Active Team Status: Active Member Role Status [facility] Primary Care Provider A ctive Dr. Zack Card , DO Emergency Provider Active Dr. Brandon Adames MD Admit Provider, Other Pro vider Active Dr. Sabina Rosenberg DO Attending Provider, Other Pro vider Active Team Status: Inactive Member Role Status [facility] Primary Care Provider, Referring Provider Active Juancarlos Pandey SHANK ARCHER, SHANK ARCHER-C Attending Provider Active Team Status: Inactive Member Role Status [facility] Primary Care Provider A ctive Juancarlos Pandey SHANK ARCHER, SHANK ARCHER-C Attending Provider, Referring Pro vider Active Team Status: Inactive Member Role Status Dates [facility] Primary Care Provider, Referring Provider Active Dr. Lino Sousa MD Attending Provider Active Team Status: Inactive Member Role Status [facility] Primary Care Provider A ctive Dr. Lino Sousa MD Attending Provider, Referr ing Provider Active Team Status: Active Member Role Status [facility] Primary Care Provider A ctive Dr. Ananda Coyle MD Emergency Provider Active Dr. Lei Justin DO Admit Provider, Attending Provider Active Team Status: Active Member Role Status Dates [facility] Primary Care Provider A ctive Dr. Ananda Coyle MD Emergency Provider Active Dr. Lei Justin DO Admit Provider, Other Pro vider Active Dr. Alli Brito MD Attending Provider, Other Provide r Active Dr. Brenda Posadas MD Other Provider Active Team Status: Active Member Role Status [facility] Primary Care Provider A ctive Dr. Ananda Coyle MD Emergency Provider Active Dr. Lei Justin DO Admit Provider, Other Pro vider Active Dr. Alli Brito MD Other Provider Active Dr. Brenda Posadas MD Attending Provider, Other Provid er Active Team Status: Active Member Role Status [facility] Primary Care Provider A ctive Dr. Ananda Coyle MD Emergency Provider Active Dr. Lei Justin DO Admit Provider, Other Pro vider Active Dr. Alli Brito MD Other Provider Active Dr. Latricia Aaron MD Attending Provider, Other Provid er Active Dr. Brenda Posadas MD Other Provider Active Team Status: Inactive Member Role Status Dates [facility] Primary Care Provider A ctive Dr. Ananda Coyle MD Emergency Provider Active Dr. Lei Justin DO Admit Provider, Other Pro vider Active Dr. Alli Brito MD Other Provider Active Dr. Latricia Aaron MD Attending Provider Active Dr. Brenda Posadas MD Other Provider Active Team Status: Active Member Role Status Dates [facility] Primary Care Provider A ctive Dr. Ananda Coyle MD Emergency Provider Active Dr. Lei Justin DO Admit Provi dianelys, Referring Provider, Other Provider Active Dr. Alli Brito MD Attending Provider, Other Provide r Active Dr. Brenda Posadas MD Other Provider Active Team Status: Inactive Member Role Status Dates [facility] Primary Care Provider A ctive Dr. Derek Paniagua MD Emergency Provider Active Team Status: Inactive Member Role Status Dates [facility] Primary Care Provider A ctive Dr. Derek Paniagua MD Attending Provider, Emergency Provi dianelys Active Team Status: Active Member Role Status Dates [facility] Primary Care Provider A ctive Dr. Riccardo Hillman , DO Emergency Provider Active Dr. Talisha Boykin MD Admit Provider, Attending Prov ider Active Team Status: Inactive Member Role Status Dates [facility] Primary Care Provider A ctive Dr. Ananda Coyle MD Attending Provider, Emergency Pro vider Active Team Status: Active Member Role Status Dates [facility] Primary Care Provider A ctive Dr. Riccardo Hillman , DO Emergency Provider Active Dr. Talisha Boykin MD Admit Provider, Other Provider Active Dr. Jeremy Alexander MD Attending Provider, Other Provi dianelys Active Team Status: Active Member Role Status Dates [facility] Primary Care Provider A ctive Dr. Riccardo Hillman , DO Emergency Provider Active Dr. Talisha Boykin MD Admit Provider, Other Provider Active Dr. Jeremy Alexander MD Attending Provider, Other Provi dianelys Active Dr. Moody Gallagher DPM Other Provider Active Team Status: Inactive Member Role Status Dates [facility] Primary Care Provider A ctive Dr. Riccardo Hillman , DO Emergency Provider Active Dr. Talisha Boykin MD Admit Provider, Other Provider Active Dr. Jeremy Alexander MD Attending Provider Active Dr. Moody Gallagher DPM Other Provider Active Team Status: Active Member Role Status Dates [facility] Primary Care Provider A ctive Dr. Riccardo Hillman , DO Emergency Provider Active Dr. Talisha Boykin MD Admit Provider, Attending Provider, Other Provider Active Dr. Jeremy Alexander MD Other Provider Active Team Status: Active Member Role Status [facility] Primary Care Provider A ctive Patient Link Program Attending Provider, Referring Pro vider Active Team Status: Inactive Member Role Status Dates [facility] Primary Care Provider A ctive Dr. Ananda Coyle MD Emergency Provider Active Valve Inspector Relationship Specialty Start Date End Date [facility], [facility] [address] [place] [address] PCP - General 09/02/23 Zohreh Mckeon NP [address] [place] [phone] Referring Family Medicine 10/18/22 Team Status: Inactive Member Role Status Dates [facility] Primary Care Provider A ctive Dr. Kaylie PEMBERTON MD Attending Provider Active Team Status: Active Member Role Status Dates [facility] Primary Care Provider A ctive Dr. Kaylie PEMBERTON MD Attending Provider Active Valve Inspector Relationship Specialty Start Date End Date [facility], [facility] [address] [place] [address] PCP - General 09/02/23 Zohreh Mckeon NP [address] [place] [address] Referring Family Medicine 10/18/22 Team Status: Active Member Role Status Dates [facility] Primary Care Provider A ctive Dr. Kaylie PEMBERTON MD Attending Provider, Referring Provider Active Team Status: Inactive Member Role Status Dates [facility] Primary Care Provider A ctive Jeremiah Rawls MD Emergency Provider Active Valve Inspector Relationship Specialty Start Date End Date [facility] [address] [place] [address] PCP - General 09/02/23 Zohreh Mckeon NP [address] [place] [phone] Referring Family Medicine 10/18/22 Valve Inspector Relationship Specialty Start Date End Date [facility], [facility] [address] [place] [phone] PCP - General 09/02/23 Zohreh Mckeon NP [address] [place] [phone] Referring Family Medicine 10/18/22 Valve Inspector Relationship Specialty Start Date End Date [facility], [facility] [address] [place] [phone] PCP - General 09/02/23 Zohreh Mckeon NP [facility] [place] [phone] Referring Family Medicine 10/18/22 Valve Inspector Relationship Specialty Start Date End Date [facility], [facility] [place] [phone] PCP - General 09/02/23 Zohreh Mckeon NP [facility] [place] [address] Referring Family Medicine 10/18/22 Valve Inspector Relationship Specialty Start Date End Date No, Pcp [address] [place] [address] PCP - General 05/02/22 Team Status: Active Member Role Status Dates Zohreh Mckeon [facility], SHANK ARCHER-C Primary Care Provider Activ e Team Status: Inactive Member Role Status Dates [facility] Primary Care Provider Active Start: April [...] Team Status: Active Member Role Status Dates [facility] Primary Care Provider Active Start: April [...] Team Status: Active Member Role Status Dates [facility] Primary Care Provider Active Start: April [...] Team Status: Inactive Member Role Status Dates [facility] Primary Care Provider A ctive Start: [...] Team Status: Active Member Role Status Dates [facility] Primary Care Provider A ctive Start: [...] Team Status: Active Member Role Status Dates [facility] Primary Care Provider A ctive Start: [...] Team Status: Active Member Role Status Dates [facility] Primary Care Provider A ctive Start: [...] Team Status: Active Member Role Status Dates [facility] Primary Care Provider A ctive Start: [...] Team Status: Inactive Member Role Status Dates [facility] Primary Care Provider A ctive Start: [...] July 05, 2024 Zohreh Mckeon [facility], SHANK ARCHER-C Primary Care Provider Activ e Start: July 05, 2024 End: July 05, 2024 Team Status: Inactive Member Role Status Dates Dr. Nicole Trujillo DO Attending Provider Active S tart: July 06, 2024 End: July 06, 2024 Dr. Nicole Trujillo DO Referring Provider Active S tart: July 06, 2024 End: July 06, 2024 [facility], SHANK ARCHER-C Primary Care Provider Activ e Start: July 06, 2024 End: July 06, 2024 Team Status: Inactive Member Role Status Dates Dr. Nicole Trujillo DO Attending Provider Active S tart: July 07, 2024 End: July 07, 2024 Dr. Nicole Trujillo DO Referring Provider Active S tart: July 07, 2024 End: July 07, 2024 Zohreh Terence [facility], SHANK ARCHER-C Primary Care Provider Activ e Start: July 07, 2024 End: July 07, 2024 Team Status: Inactive Member Role Status Dates Dr. Nicole Trujillo DO Attending Provider Active S tart: July 10, 2024 End: July 10, 2024 Dr. Nicole Trujillo DO Referring Provider Active S tart: July 10, 2024 End: July 10, 2024 Zohreh MIRANDA, SHANK ARCHER-C Primary Care Provider Activ e Start: July 10, 2024 End: July 10, 2024 Team Status: Inactive Member Role Status Dates Zohreh KINGC, SHANK ARCHER-C Primary Care Provider Activ e Start: July 11, 2024 End: July 11, 2024 Dr. Nicole Trujillo , Attending Provider Active S tart: July 11, 2024 End: July 11, 2024 Dr. Nicole Trujillo , Referring Provider Active S tart: July 11, 2024 End: July 11, 2024 Team Status: Inactive Member Role Status Dates Zohreh MIRANDA, SHANK ARCHER-C Primary Care Provider Activ e Start: August 01, 2024 End: August 01, 2024 Dr. Riccardo Hillman , Attending Provider Active Start: August 01, 2024 End: August 01, 2024 Dr. Riccardo Hillman DO Emergency Provider Active Start: August 01, 2024 End: August 01, 2024 Team Status: Active Member Role Status Dates Zohreh MIRANDA, SHANK ARCHER-C Primary Care Provider Activ e Start: August 26, 2024 Dr. Riccardo Ng MD Attending Provider Active S tart: August 26, 2024 Team Status: Active Member Role Status Dates Zohreh MIRANDA, SHANK ARCHER-C Primary Care Provider Activ e Start: August 26, 2024 Dr. Vaughn Daugherty DO Emergency Provider Activ e Start: August 26, 2024 Dr. Brenda Posadas MD Admit Provider Active Star t: August 26, 2024 Dr. Brenda Posadas MD Attending Provider Active Start: August 26, 2024 Team Status: Inactive Member Role Status Dates Zohreh MIRANDA, SHANK ARCHER-C Primary Care Provider Activ e Start: August [...] Member Role Status Dates Zohreh Terence [facility], SHANK ARCHER-C Primary Care Provider Activ e Start: August [...] Member Role Status Dates Zohreh Terence [facility], SHANK ARCHER-C Primary Care Provider Activ e Start: August [...] Member Role Status Dates Zohreh Terence MIRANDA, SHANK ARCHER-C Primary Care Provider Activ e Start: August [...] Active Member Role Status Dates Zohreh MIRANDA, SHANK ARCHER-C Primary Care Provider Activ e Start: August [...] Active Member Role Status Dates Zohreh MIRANDA, SHANK ARCHER-C Primary Care Provider Activ e Start: August [...] Active Member Role Status Dates Zohreh MIRANDA, SHANK ARCHER-C Primary Care Provider Activ e Start: August [...] Member Role Status Dates Zohreh Terence [facility], SHANK ARCHER-C Primary Care Provider Activ e Start: September [...] Member Role Status Dates Zohreh Terence [facility]ING[facility], SHANK ARCHER-C Primary Care Provider Activ e Start: September 01, 2024 Dr. Alli Brito MD Attending Provider Active S tart: September 01, 2024 Team Status: Active Member Role Status Dates Zohrehdmitriy [facility]INGC, SHANK ARCHER-C Primary Care Provider Activ e Start: September [...] Member Role Status Dates Zohreh Terence [facility], SHANK ARCHER-C Primary Care Provider Activ e Start: August 26, 2024 Dr. Riccardo Ng MD Attending Provider Active S tart: August 26, 2024 Dr. Jeison Abrams , Referring Provider Active Start: August 26, 2024 Team Status: Active Member Role Status Dates Zohrehdmitriy MIRANDA, SHANK ARCHER-C Primary Care Provider Activ e Start: August [...] Member Role Status Dates Zohreh Terence [facility], SHANK ARCHER-C Primary Care Provider Activ e Start: September 05, 2024 End: September 05, 2024 Dr. Zack Card DO Emergency Provider Active Start : September 05, 2024 End: September 05, 2024 Team Status: Active Member Role Status Dates Zohreh Terence [facility], SHANK ARCHER-C Primary Care Provider Activ e Start: September [...] Member Role Status Dates Zohreh Terence MIRANDA, SHANK ARCHER-C Primary Care Provider Activ e Start: September 05, 2024 End: September 05, 2024 Dr. Zack Card DO Attending Provider Active Start : September 05, 2024 End: September 05, 2024 Dr. Zack Card DO Emergency Provider Active Start : September 05, 2024 End: September 05, 2024 Team Status: Active Member Role Status Dates Zohreh Terence [facility], SHANK ARCHER-C Primary Care Provider Activ e Start: September [...] Active Member Role Status Dates Zohrehdmitriy [facility]INGC, SHANK ARCHER-C Primary Care Provider Activ e Start: September [...] Role Status Dates Zohreh Mckeon [facility], SHANK ARCHER-C Primary Care Provider Activ e Start: September [...] Active Member Role Status Dates Zohreh KING, SHANK ARCHER-C Primary Care Provider Activ e Start: September [...] Active Member Role Status Dates Zohreh KING, SHANK ARCHER-C Primary Care Provider Activ e Start: September [...] Active Member Role Status Dates Zohreh MIRANDA, SHANK ARCHER-C Primary Care Provider Activ e Start: September 12, 2024 Dr. Davis Ibarra DO Emergency Provider Active Start: September 12, 2024 Dr. Rosaura Crane MD Admit Provider Active St art: September 12, 2024 Dr. Rosaura Crane MD Other Provider Active St art: September 12, 2024 Dr. Bredna Posadas MD Attending Provider Active Start: September 12, 2024 Dr. Brenda Posadas MD Other Provider Active Star t: September 12, 2024 Dr. Nichelle Mcneil MD Other Provider Active Start: September 12, 2024 Team Status: Active Member Role Status Dates Zohreh MIRANDA, SHANK ARCHER-C Primary Care Provider Activ e Start: September [...] Active Member Role Status Dates Zohreh MIRANDA, SHANK ARCHER-C Primary Care Provider Activ e Start: September [...] Active Member Role Status Dates Zohreh MIRANDA, SHANK ARCHER-C Primary Care Provider Activ e Start: September [...] Active Member Role Status Dates Zohreh MIRANDA, SHANK ARCHER-C Primary Care Provider Activ e Start: September [...] Inactive Member Role Status Dates Zohreh MIRANDA, SHANK ARCHER-C Primary Care Provider Activ e Start: September [...] Member Role Status Dates Zohreh Terence [facility], SHANK ARCHER-C Primary Care Provider Activ e Start: September 21, 2024 End: September 21, 2024 Dr. Riccardo Hillman , Emergency Provider Active Start: September 21, 2024 End: September 21, 2024 Team Status: Inactive Member Role Status Dates Zohreh Terence [facility], SHANK ARCHER-C Primary Care Provider Activ e Start: September 21, 2024 End: September 21, 2024 Dr. Riccardo Hillman DO Attending Provider Active Start: September 21, 2024 End: September 21, 2024 Dr. Riccardo Hillman DO Emergency Provider Active Start: September 21, 2024 End: September 21, 2024 Team Status: Inactive Member Role Status Dates Zohreh Terence [facility], SHANK ARCHER-C Primary Care Provider Activ e Start: September 29, 2024 End: September 29, 2024 Dr. Zack Card , Emergency Provider Active Start : September 29, 2024 End: September 29, 2024 Team Status: Active Member Role/Relationship Status Dates Zohreh Mckeon [facility], SHANK ARCHER-C Primary Care Provider Activ e Team Status: Active Member Role/Relationship Status Dates Zohreh Mckeon [facility], SHANK ARCHER-C Primary Care Provider Activ e Start: August 26, 2024 Dr. Riccardo Ng MD Attending Provider Active S tart: August 26, 2024 Dr. Jeison Abrams , Referring Provider Active Start: August 26, 2024 Team Status: Inactive Member Role/Relationship Status Dates Zohreh Terence [facility], SHANK ARCHER-C Primary Care Provider Activ e Start: August [...] Active Member Role/Relationship Status Dates Zohreh MIRANDA, SHANK ARCHER-C Primary Care Provider Activ e Start: August [...] Active Member Role/Relationship Status Dates Zohreh MIRANDA, SHANK ARCHER-C Primary Care Provider Activ e Start: August 27, 2024 Dr. Vaughn Daugherty DO Emergency Provider Activ e Start: August 27, 2024 Dr. Brenda Posdaas MD Admit Provider Active Star t: August [...] Active Member Role/Relationship Status Dates Zohreh MIRANDA, SHANK ARCHER-C Primary Care Provider Activ e Start: August [...] Active Member Role/Relationship Status Dates Zohreh KING, SHANK ARCHER-C Primary Care Provider Activ e Start: August [...] Active Member Role/Relationship Status Dates Zohrehdmitriy KING, SHANK ARCHER-C Primary Care Provider Activ e Start: August [...] Active Member Role/Relationship Status Dates Zohrehdmitriy MIRANDA, SHANK ARCHER-C Primary Care Provider Activ e Start: August [...] Active Member Role/Relationship Status Dates Zohreh KINGC, SHANK ARCHER-C Primary Care Provider Activ e Start: September [...] Active Member Role/Relationship Status Dates Zohrehlurdes [facility]INGC, SHANK ARCHER-C Primary Care Provider Activ e Start: September 01, 2024 Dr. Alli Brito MD Attending Provider Active S tart: September 01, 2024 Team Status: Active Member Role/Relationship Status Dates Zohrehlurdes [facility], SHANK ARCHER-C Primary Care Provider Activ e Start: September 02, 2024 Dr. Vaughn Daugherty DO Emergency Provider Activ e Start: September 02, 2024 Dr. Brenda Posadas MD Admit Provider Active Star t: September 02, 2024 Dr. Brenda Posadas MD Other Provider Active Star t: September 02, 2024 Dr. Riccardo Ng MD Other Provider Active Start : September 02, 2024 Dr. Latricia Araon MD Attending Provider Active Start: September 02, 2024 Dr. Latricia Aaron MD Other Provider Active Star t: September 02, 2024 Dr. Nicole Trujillo DO Other Provider Active Start : September 02, 2024 Team Status: Inactive Member Role/Relationship Status Dates Zohreh MIRANDA, SHANK ARCHER-C Primary Care Provider Activ e Start: September 05, 2024 End: September 05, 2024 Dr. Zack Card DO Attending Provider Active Start : September 05, 2024 End: September 05, 2024 Dr. Zack Card DO Emergency Provider Active Start : September 05, 2024 End: September 05, 2024 Team Status: Active Member Role/Relationship Status Dates Zohreh KING, SHANK ARCHER-C Primary Care Provider Activ e Start: September [...] Active Member Role/Relationship Status Dates Zohreh KING, SHANK ARCHER-C Primary Care Provider Activ e Start: September [...] Active Member Role/Relationship Status Dates Zohreh KING, SHANK ARCHER-C Primary Care Provider Activ e Start: September [...] Role/Relationship Status Dates Zohreh Mckeon [facility], SHANK ARCHER-C Primary Care Provider Activ e Start: September [...] Active Member Role/Relationship Status Dates Zohreh MIRANDA, SHANK ARCHER-C Primary Care Provider Activ e Start: September [...] Active Member Role/Relationship Status Dates Zohreh MIRANDA, SHANK ARCHER-C Primary Care Provider Activ e Start: September [...] Active Member Role/Relationship Status Dates Zohreh MIRANDA, SHANK ARCHER-C Primary Care Provider Activ e Start: September [...] Role/Relationship Status Dates Zohreh Mckeon [facility], SHANK ARCHER-C Primary Care Provider Activ e Start: September [...] Role/Relationship Status Dates Zohreh Mckeon [facility], SHANK ARCHER-C Primary Care Provider Activ e Start: September [...] Role/Relationship Status Dates Zohreh Mckeon [facility], SHANK ARCHER-C Primary Care Provider Activ e Start: September [...] Active Member Role/Relationship Status Dates Zohreh KINGC, SHANK ARCHER-C Primary Care Provider Activ e Start: September [...] Inactive Member Role/Relationship Status Dates Zohreh KINGC, SHANK ARCHER-C Primary Care Provider Activ e Start: September 21, 2024 End: September 21, 2024 Dr. Riccardo Hillman DO Attending Provider Active Start: September 21, 2024 End: September 21, 2024 Dr. Riccardo Hillman DO Emergency Provider Active Start: September 21, 2024 End: September 21, 2024 Team Status: Inactive Member Role/Relationship Status Dates Zohreh Mckeon [facility], SHANK ARCHER-C Primary Care Provider Activ e Start: September 29, 2024 End: September 29, 2024 Dr. Zack Card DO Attending Provider Active Start : September 29, 2024 End: September 29, 2024 Dr. Zack Card DO Emergency Provider Active Start : September 29, 2024 End: September 29, 2024 Team Status: Inactive Member Role/Relationship Status Dates Zohreh Mckeon [facility], SHANK ARCHER-C Primary Care Provider Activ e Start: December [...] or prosecute any alcohol or drug abuse patient.[facility] the event this information is protected by the Federal Confidentiality of Alcohol and Drug Abuse Patient Records regulations: The Federal rules restrict any use of the information to criminally investigate or prosecute any alcohol or drug abuse patient.[facility] the event this information is protected by the Federal Confidentiality of Alcohol and Drug Abuse Patient Records regulations: The Federal rules restrict any use of the information to criminally investigate or prosecute any alcohol or drug abuse patient.[facility] the event this information is protected by the Federal Confidentiality of Alcohol and Drug Abuse Patient Records regulations: The Federal rules restrict any use of the information to criminally investigate or prosecute any alcohol or drug abuse patient.[facility] HospitalIn the event this information is protected by the Federal Confidentiality of Alcohol and Drug Abuse Patient Records regulations: The Federal rules restrict any use of the information to criminally investigate or prosecute any alcohol or drug abuse patient.[facility] Hospital[facility] the event this information is protected by the Federal Confidentiality of Alcohol and Drug Abuse Patient Records regulations: The Federal rules restrict any use of the information to criminally investigate or prosecute any alcohol or drug abuse patient.[facility] HospitalIn the event this information is protected by the Federal Confidentiality of Alcohol and Drug Abuse Patient Records regulations: The Federal rules restrict any use of the information to criminally investigate or prosecute any alcohol or drug abuse patient.[facility] Hospital[facility] the event this information is protected by the Federal Confidentiality of Alcohol and Drug Abuse Patient Records regulations: The Federal rules restrict any use of the information to criminally investigate or prosecute any alcohol or drug abuse patient.[facility] Hospital[facility] the event this information is protected by the Federal Confidentiality of Alcohol and Drug Abuse Patient Records regulations: The Federal rules restrict any use of the information to criminally investigate or prosecute any alcohol or drug abuse patient.[facility] Hospital[facility] the event this information is protected by the Federal Confidentiality of Alcohol and Drug Abuse Patient Records regulations: The Federal rules restrict any use of the information to criminally investigate or prosecute any alcohol or drug abuse patient.[facility] Reason for Visit (unrecogniz ed section and content) Reason Comments Appointment Radiology XR Reason Comments Patient Question Abscess Reason Comments Patient Update Reason Comments Contact Center Call Patient Update PHYSICIAN INSTRUCTIONS Reason Comments returned snf call Patient Update Reason Comments Orders AG [...] BE BASED ON THE PRIMARY CLINICAL RECORDS. [employer] [facility]. provides no warranty or guarantee of the accuracy or completeness of information in this document.
--- NOTE | 2025-01-29 21:14 | ED.VIS.LOWEX ---
HPI History of Present Illness Chief Complaint: Lower Extremity Injury Informant: patient Narrative Narrative: Patient is a 54-year-old female with mostly complex medical history including poorly controlled type 2 diabetes mellitus, hypertension, amputation of toe on the right foot, transmetatarsal amputation on the left foot, prior right hip fracture status post ORIF, cardiomyopathy and peripheral vascular disease presenting with worsening right hip pain. Patient states has been out of rehab facilities for various reasons over the past few months. She states she previously had been taking gabapentin for her pain as well as oxycodone and was getting it from her nursing facility most recently. She states she lost her primary care doctor because she been in out of the hospital and not been able to follow-up. She states that she ran out of her gabapentin 3 days ago did have and having worsening pain. The pain is in her right groin and right hip and radiates down towards her right knee. She denies any acute trauma or injury but does note that she had a relatively low velocity fall about a month ago. She has had some mild numbness tingling down her legs since yesterday on the right side. Pain is worse with movement. She lives at home with her daughter. She states she has a hospital bed but the mattress is much too hard and is causing her more pain. Does report some associated nausea secondary to the pain. No other complaints or concerns at this time. [facility] Medical History L5 vertebral fracture ESBL (extended spectrum beta-lactamase) producing bacteria infection Generalized weakness Candidiasis of breast Colitis Debility PTSD (post-traumatic stress disorder) Closed compression fracture of L3 vertebra Hypokalemia Colitis BiPAP (biphasic positive airway pressure) dependence Coronary artery disease On home oxygen therapy Rheumatoid arthritis Sleep apnea Smoker DVT (deep venous thrombosis) Seizures Amputation toe Psychiatric disorder Ischemic cardiomyopathy Diabetes type 2, uncontrolled Essential hypertension Substance abuse Alcohol abuse Depression Osteoporosis GERD (gastroesophageal reflux disease) Pulmonary embolism Myocardial infarct Pericardial effusion Hypoxemia Acute dyspnea Aftercare following surgery of the circulatory system Hx of fracture of humerus Toe amputee Hyperlipidemia CHF (congestive heart failure) CAD (coronary artery disease), morongo coronary artery Home Medications ?Medication ?Instructions ?Recorded ?Last Taken ?Type aspirin 81 mg capsule 81 mg PO DAILY heart health 08/10/22 09/06/24 History clopidogrel 75 mg tablet 75 mg PO DAILY anti platelet #30 02/03/23 09/06/24 Rx tabs pantoprazole 40 mg tablet,delayed 40 mg PO DAILY reflux 04/18/23 09/06/24 History release sacubitril 24 mg-valsartan 26 mg 1 tab PO BID . 30 days #60 tabs 05/07/23 09/06/24 Rx tablet (Entresto) atorvastatin 80 mg tablet 80 mg PO QHS cholesterol 12/29/23 09/06/24 History gabapentin 300 mg capsule 300 mg PO TID nerve pain 12/29/23 09/06/24 History insulin lispro 100 unit/mL 1 sliding scale dose subcut TIDCM 12/29/23 09/06/24 History subcutaneous half-unit pen glucose DIC 2%/RINKU 6%/LIDOC 2% IN 1 - 2 pump subdermal Q6H PRN FOR 02/14/24 09/06/24 History saltsable FEET cholecalciferol (vitamin D3) 1,250 1,250 mcg PO WE supplement 02/14/24 09/03/24 History mcg (50,000 unit) tablet spironolactone 25 mg tablet 25 mg PO DAILY water pill 30 days 02/17/24 09/06/24 Rx #0 tabs carvedilol 3.125 mg tablet 6.25 mg (2 x 3.125 mg) PO BID 02/19/24 09/06/24 Rx blood pressure 30 days #0 tabs ergocalciferol (vitamin D2) 1,250 1,250 mcg PO We@1000 #0 caps 02/19/24 09/03/24 Rx mcg (50,000 unit) capsule (Vitamin D2) insulin glargine 100 unit/mL (3 20 unit (0.2 mL) subcut QPM 30 02/19/24 09/06/24 Rx mL) subcutaneous pen (Lantus days #0 mL Solostar U-100 Insulin) escitalopram oxalate 20 mg tablet 20 mg PO DAILY depression 06/29/24 09/06/24 History furosemide 20 mg tablet 20 mg PO DAILY water pill 06/29/24 09/06/24 History midodrine 2.5 mg tablet 2.5 mg PO DAILY blood pressure 06/29/24 09/06/24 History polyethylene glycol 3350 17 17 g PO BID PRN constipation 06/29/24 Unknown History gram/dose oral powder (Miralax) sennosides 8.6 mg-docusate sodium 2 tab PO BID PRN constipation 06/29/24 Unknown History 50 mg tablet (Stimulant Laxative Plus) tizanidine 4 mg tablet 4 mg PO 3XD spasm 06/29/24 09/06/24 History acetaminophen 500 mg tablet 1,000 mg (2 x 500 mg) PO Q8 #0 tabs 09/02/24 09/06/24 Rx ondansetron 4 mg disintegrating 4 mg PO Q8H PRN PRN Nausea #10 tabs 09/05/24 Unknown Rx tablet acetaminophen 325 mg tablet 650 mg (2 x 325 mg) PO Q4H PRN PRN 09/16/24 Unknown Rx Fever, pain 1-03/13 #0 tabs ertapenem 1 gram solution for 1 g IV Q24H 7 days #7 ea 09/16/24 Unknown Rx injection lidocaine 5 % topical patch 1 patch topical DAILY #30 ea 09/16/24 Unknown Rx ondansetron 4 mg disintegrating 4 mg PO Q6H PRN nausea and 09/16/24 Unknown Rx tablet vomiting #30 tabs oxycodone 5 mg tablet 5 mg PO Q4H PRN PRN pain 4-10 3 09/16/24 Unknown Rx days #14 tabs sennosides 8.6 mg-docusate sodium 2 tab PO BID #60 tabs 09/16/24 Unknown Rx 50 mg tablet (Stimulant Laxative Plus) metoclopramide HCl 10 mg tablet 10 mg PO Q6H PRN nausea and 09/21/24 Unknown Rx (Reglan) vomiting 5 days #20 tabs metoclopramide HCl 5 mg tablet 5 mg PO TID PRN PRN nausea and 09/29/24 Unknown Rx (Reglan) vomiting #14 tabs Allergy/AdvReac Type Severity Reaction Status Date / Time latex Allergy Hives Verified 01/29/25 15:41 Family History Mother Thyroid disorder Diabetes Hypertension Grandmother Diabetes Uncle Diabetes Aunt Diabetes Other Heart disease Surgical History History of cholecystectomy History of appendectomy History of cholecystectomy Social History household members: spouse and children housing: house Smoking Status: Current every day smoker tobacco type: cigarettes alcohol intake: never substance use type: marijuana what type of physical activity do you participate in: none do you feel safe at home: Yes ROS ROS ED Constitutional Constitutional ED: Denies chills or fever(s) Cardiovascular Cardiovascular: Denies chest pain Respiratory/Chest Respiratory/Chest: Denies dyspnea Gastrointestinal Gastrointestinal: Reports nausea; Denies abdominal pain or vomiting Genitourinary Genitourinary ED: Denies dysuria Musculoskeletal Musculoskeletal: Reports other Details: Right hip and groin pain Integumentary Denies Abrasions or rash Neurologic Neurologic: Reports paresthesias RLE; Denies weakness Psychiatric Psychiatric: Reports anxiety Hematologic/Lymphatic Hematologic/Lymphatic: Denies easy bleeding or easy bruising EXAM Physical Exam Const Vital Signs: 01/29/25 15:40 01/29/25 17:31 01/29/25 19:33 Temperature 98.3 F 98 F Temperature Source Oral Pulse Rate 123 H 106 H 103 H Respiratory Rate 20 H 14 18 Blood Pressure 135/97 H 145/87 H 133/69 H Blood Pressure Mean 109 106 90 Pulse Ox 100 99 97 Oxygen Delivery Method Room Air Room Air Positive well nourished and well developed Constitutional Narrative: In mild distress secondary to pain General Appearance ED: well developed HEENT Reports moist mucous membranes normocephalic and atraumatic Neck full ROM and supple Chest Wall inspection of chest normal Resp normal respiratory effort and clear to auscultation bilaterally Cardio regular rate and regular rhythm GI non-tender and non-distended Palpation: soft; Negative for tender or guarding Back/Spine Back/Spine Narrative: Mild pain over the right SI joint. No midline spinal tenderness. Patient unable to tolerate straight leg test or movement of the hip on the right. Negative straight leg test on the left. Extremity Extremity Narrative: No obvious deformity. Significant tenderness to palpation of the right hip. Pain with range of motion of the right hip on logroll. No obvious joint effusion present. Neuro oriented x3 and no sensory deficits noted Neuro Narrative: Decreased range of motion of the right lower extremity and seems to be secondary to right hip pain Sensorium / Orientation: alert Sensory Exam: sensory level loss detected Psych mental status grossly normal Mood & Affect: anxious Skin no wounds Lesions: no lesions Rashes: no rashes MDM MDM MDM Narrative Medical decision making narrative: Patient evaluated for worsening right hip pain that she states is triggered by running out of her gabapentin. Patient has significant pain with attempted range of motion of her right hip has had prior ORIF of that hip. Differential includes septic joint, acute on chronic pain, sciatica, bursitis, periprosthetic hip fracture and pelvic fracture. Labs obtained to look for any signs of inflammation which be consistent with an infected joint. Patient given IV morphine for pain control. Lab work shows a normal white blood cell count and largely normal CBC. BMP does show an elevated glucose of 344 however she has a normal anion gap and normal bicarb suggestive of chronic and compensated hyperglycemia. Her CRP is less than 3. Lab work is not consistent with infection or septic joint. Hip x-ray does show read out as acute nondisplaced fracture of the right inferior and superior pubic process. On my interpretation I do appreciate what appears to be right inferior rami fracture. Patient requires further pain control is given additional morphine and Toradol. She does not feel comfortable going home and with ambulation. Will be admitted for debility and assistance with ambulation. Case discussed with hospitalist, Dr. Ruano. Lab Data Attestation: I reviewed the patient's lab results. Labs: Laboratory Results - last 24 hr 01/29/25 17:00 WBC 7.8 RBC 5.24 Hgb 14.3 Hct 43.4 MCV 82.8 MCH 27.3 MCHC 32.9 RDW Std Deviation 42.9 RDW Coeff of Spencer 14.4 Plt Count 240 MPV 10.1 Immature Gran % (Auto) 0.500 Neut % (Auto) 74.5 H Lymph % (Auto) 18.4 L Cecil % (Auto) 5.4 Eos % (Auto) 0.4 Baso % (Auto) 0.8 Absolute Neuts (auto) 5.9 Absolute Lymphs (auto) 1.44 Nucleated RBC % 0 Sodium 134 Potassium 4.1 Chloride 99 Carbon Dioxide 23.8 Anion Gap 10 BUN 6 Creatinine 0.65 L Estim Creat Clear Calc 104.07 Est GFR (MDRD) Non-Af 105 BUN/Creatinine Ratio 9.0 L Glucose 344 H Calcium 8.9 C-React Prot Ext Range < 3.00 Radiography Diagnostic Testing: Clinical Impression(s) from Imaging Studies Hip/Pelvis X-Ray 01/29/25 17:44 IMPRESSION: Acute nondisplaced fracture of the right inferior and superior pubic processes. Reading Location: [facility] Management Discussion w/another healthcare provider: Hospitalist Discharge Plan Triage Chief Complaint: Lower Extremity Injury ED Provider: Martina Martínez Dx/Rx/DC Orders Clinical Impression: Fracture of pubic ramus, Severe pain, Ambulatory dysfunction, Hyperglycemia Primary Care Provider: Zohreh Pratt [facility] Disposition Disposition: Acute Care Hospital [facility]
[2025-01-29 21:51] LABS: Magnesium 2.0 mg/dL (1.5-2.2)
[2025-01-29] MEDS: Nicotine (PBKC) 14 MG Patch TD (23:33)
[2025-01-29] MEDS: 0.9% Normal Saline (1000mL) 1,000 ML 70 ML IV (23:34)
[2025-01-29] MEDS: 0.9% Saline Lock 10 ML Syringe IV (23:34)
[2025-01-29] MEDS: Senna/Docusate Sodium 1 Tablet 2 TABLET PO (23:35)
[2025-01-29] MEDS: SACUBITRIL/VALSARTAN 24/26 MG TABLET 1 EACH PO (23:36)
[2025-01-29] MEDS: Insulin Glargine-YFGN 100 UNIT/ML Pen 20 UNIT SC (23:52)
[2025-01-30] VITALS (9 sets, daily range): BP systolic 95–121; BP diastolic 51–80; PULSE 75–94; RESP 15–16; TEMP 36.7–37.1; O2SAT 98–100; BMI 28.5
[2025-01-30 00:08] LABS: Alcohol, Blood (Medical)-Serum < 10.1 mg/dL (<=10.0)
[2025-01-30 00:22] LABS: FOLATES,SERUM (FOLIC ACID) 11.90 ng/mL (4.60-34.80)
[2025-01-30 00:23] LABS: Vitamin B12 344 pg/mL (180-914)
--- NOTE | 2025-01-30 00:34 | CPS ---
PATIENT REFUSED PAP THERAPY FOR NIGHT TIME USE. STATED SHE ONLY WEARS O2 AT NIGHT. RT PLACED PATIENT ON 2L FOR THE NIGHT 98% AT THIS TIME.
[2025-01-30 06:23] LABS: Hematocrit 39.6 % (37-47); Hemoglobin 12.7 g/dL (12.0-15.0); Immature Granulocytes Count 0.020 X10^3/uL (0.0-0.0); Mean Corp Hgb Conc 32.1 g/dL (32-36); Mean Corpuscular Volume 84.8 fL (81-99); Mean Platelet Vol. 10.2 fl (6.2-12.0); NRBC Flagged by Analyzer 0 % (0-5); Platelet Count 209 K/mm3 (150-450); RBC Distribution Width CV 14.6 % (11.6-14.6); RBC Distribution Width SD 44.7 fl (35.1-43.9); Red Blood Count 4.67 M/mm3 (4.2-5.4); White Blood Count 6.7 K/mm3 (4.4-11.0)
[2025-01-30 06:55] LABS: AST(SGOT) 17 U/L (<=31); Alanine Aminotransfer ALT/SGPT 11 U/L (<=34); Albumin, Serum 3.0 g/dL (3.5-5.0); Alkaline Phosphatase 110 U/L (35-104); Anion Gap 10 (5-15); BUN 8 mg/dL (4-19); BUN/Creat Ratio 12.6 RATIO (10-20); Calcium,Total 8.4 mg/dL (7.6-11.0); Carbon Dioxide 22.7 mmol/L (21.0-32.0); Chloride 99 mmol/L (98-108); Cholesterol 178 mg/dL (<=200); Estimated Creatinine Clearance 107.23 ml/min (50-250); Globulin 2.6 g/dL (2.2-4.2); Glucose 385 mg/dL (70-99); Low Density Lipoprotein Calc. 82 mg/dL; Potassium 3.9 mmol/L (3.3-5.1); Triglycerides 284 mg/dL; Very Low Density Lipoprotein 57 mg/dL (5-40); cholesterol:hdl ratio screen 4.53
--- NOTE | 2025-01-30 07:28 | PN.HOSP_ITS ---
Reason for Visit Chief Complaint: Severe Right Hip Pain and Inability to Ambulate. Subjective Subjective Patient complaining of pretty significant pain related to her fracture. States she is not sure what she did. Is agreeable to placement at discharge. I noted to her we would discussed with case management. I did let her know we would schedule some p.o. pain medication and attempt to avoid IV pain medicine. She voiced understanding. Objective Data Objective Data Vital Signs: Vital Signs Temp Pulse Resp BP Pulse Ox O2 Del Method O2 Flow Rate 98.1 F 75 15 117/51 L 100 Nasal Cannula 2 01/30/25 04:00 01/30/25 04:00 01/30/25 04:00 01/30/25 04:00 01/30/25 04:00 01/30/25 04:00 01/30/25 04:00 Oxygen Flow Rate (L/min) 2 Oxygen Delivery Method Nasal Cannula Weight: 80.7 kg Body Mass Index (BMI) 28.5 Intake & Output: Intake and Output for Last 24 Hours 01/28/25 01/29/25 01/30/25 23:59 23:59 23:59 Intake Total 150 / 150 Balance 150 / 150 Lab / Micro Data 01/30/25 05:39 01/30/25 05:39 Labs: Laboratory Results - last 24 hr 01/29/25 17:00: WBC 7.8, RBC 5.24, Hgb 14.3, Hct 43.4, MCV 82.8, MCH 27.3, MCHC 32.9, RDW Std Deviation 42.9, RDW Coeff of Spencer 14.4, Plt Count 240, MPV 10.1, Immature Gran % (Auto) 0.500, Neut % (Auto) 74.5 H, Lymph % (Auto) 18.4 L, Mcmullen % (Auto) 5.4, Eos % (Auto) 0.4, Baso % (Auto) 0.8, Absolute Neuts (auto) 5.9, Absolute Lymphs (auto) 1.44, Nucleated RBC % 0, Sodium 134, Potassium 4.1, Chloride 99, Carbon Dioxide 23.8, Anion Gap 10, BUN 6, Creatinine 0.65 L, Estim Creat Clear Calc 104.07, Est GFR (MDRD) Non-Af 105, BUN/Creatinine Ratio 9.0 L, Glucose 344 H, Hemoglobin A1c 13.2 H, Calcium 8.9, Magnesium 2.0, C-React Prot Ext Range < 3.00, TSH 1.870 01/29/25 21:55: POC Glucose 241 H 01/29/25 22:24: Vitamin B12 344, Serum Folate 11.90, Ethyl Alcohol < 10.1 01/30/25 05:39: WBC 6.7, RBC 4.67, Hgb 12.7, Hct 39.6, MCV 84.8, MCH 27.2, MCHC 32.1, RDW Std Deviation 44.7 H, RDW Coeff of Spencer 14.6, Plt Count 209, MPV 10.2, Immature Gran % (Auto) 0.300, Neut % (Auto) 59.7, Lymph % (Auto) 31.3, Mcmullen % (Auto) 6.7, Eos % (Auto) 1.3, Baso % (Auto) 0.7, Absolute Neuts (auto) 4.0, Absolute Lymphs (auto) 2.10, Nucleated RBC % 0, Sodium 132 L, Potassium 3.9, Chloride 99, Carbon Dioxide 22.7, Anion Gap 10, BUN 8, Creatinine 0.65 L, Estim Creat Clear Calc 107.23, Est GFR (MDRD) Non-Af 105, BUN/Creatinine Ratio 12.6, G lucose 385 H, Calcium 8.4, Phosphorus 3.2, Total Bilirubin 0.54, AST 17, ALT 11, Alkaline Phosphatase 110 H, Total Protein 5.5 L, Albumin 3.0 L, Globulin 2.6, Albumin/Globulin Ratio 1.2, Triglycerides 284 H, Cholesterol 178, LDL Cholesterol, Calc 82, VLDL Cholesterol 57 H, HDL Cholesterol 39 L, Cholesterol/HDL Ratio 4.53 01/30/25 06:15: POC Glucose 395 H Radiography Diagnostic Testing: Radiology Impression Hip/Pelvis X-Ray 01/29/25 17:44 IMPRESSION: Acute nondisplaced fracture of the right inferior and superior pubic processes. Reading Location: [facility] Physical Exam Const alert, oriented x3, no apparent distress and well nourished; Negative for average body habitus or healthy appearing Constitutional Narrative: Unkept, overweight, middle-aged, white female, appears much older than stated age, sitting up in bed, currently appears comfortable, does not look toxic, nursing at bedside HEENT head/scalp atraumatic and moist oral mucous membranes HEENT Narrative: Dentition is poor, Mallampati is 3, no thrush Head and Scalp: normocephalic Resp normal respiratory effort, no retractions, no use of accessory muscles and clear to auscultation bilaterally Resp Narrative: Mildly diminished diffusely Auscultation: Negative for rales, rhonchi or wheezes Cardio regular rate, regular rhythm, S1 normal heart sound, S2 normal heart sound, no murmurs, no rub, no gallops and no clicks GI normal to inspection, nondistended, normoactive bowel sounds, soft to palpation and non-tender Extremity no clubbing, cyanosis or edema Neuro oriented x3 and no focal motor deficits Neuro Narrative: Moves all extremities but painful with lower extremity movement Speech: speech normal Psych affect normal Psych Narrative: Eye contact is good, patient interacts appropriately Assessment & Plan Assessment/Plan (1) Fracture of pubic ramus: QUALIFIERS: Encounter type: initial encounter Fracture type: c losed Laterality: right Qualified Code(s): S32.591A - Other specified fracture of right pubis, initial encounter for closed fracture (2) Hyperglycemia due to type 2 diabetes mellitus: QUALIFIERS: Diabetes mellitus manager long term care insulin use: with correction use Qualified Code(s): E11.65 - Type 2 diabetes mellitus with hyperglycemia; 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 twice daily--> would recommend use for limited time due to GI implications and cardiac issues at baseline - Start as needed oxycodone - Bowel regimen as ordered - PT/OT consultation - Anticipate placement needed at discharge--> case management/social work aware History of compression fractures of L3 and L5 - Old fractures - No acute issues Possible esophagitis/chronic GERD - Continue home PPI DM-2 - A1c is 13.2 -AM fasting blood sugar was greater than 300 - Continue subcu Lantus but increase from 20 daily to 20 twice daily - Change SSI to high dose -Accu-Cheks as ordered -Cardiac/carb controlled diet Gastroparesis - Continue home Reglan Diabetic neuropathy - Continue home gabapentin Vitamin D deficiency - Continue home ergocalciferol/cholecalciferol CAD/chronic combined heart failure/chronic hypotension/hyperlipidemia -It appears medication compliance is an issue -Last echocardiogram on 05/04/2023 showed EF of 15% with severe segmental systolic dysfunction-, stage III diastolic dysfunction and moderate eccentric mitral valve insufficiency - Continue home midodrine - Continue home goal-directed therapy with hold parameters - Continue home statin Severe peripheral vascular disease -Previous stent about 2 year ago -Continue outpatient follow-up with vascular surgery -continue aspirin and Plavix - No current acute issues Depression -Continue home medications Tobacco abuse -Recommend cessation -Nicotine patch if patient desires DVT prophylaxis -Continue enoxaparin 40 daily CODE STATUS -Full code Charges/Coding Visit Charges Inpatient E&M: 58024 Subs Hosp L2
[2025-01-30] MEDS: Polyethylene Glycol 3350 17 GM PACKET PO (08:58)
[2025-01-30] MEDS: Senna/Docusate Sodium 1 Tablet 2 TABLET PO ×2 (09:04→23:02)
[2025-01-30] MEDS: Nicotine (PBKC) 14 MG Patch TD (09:04)
[2025-01-30] MEDS: SACUBITRIL/VALSARTAN 24/26 MG TABLET 1 EACH PO ×2 (09:06→23:04)
[2025-01-30] MEDS: Insulin Glargine-YFGN 100 UNIT/ML Pen 20 UNIT SC ×2 (09:07→23:05)
[2025-01-30] MEDS: Lidocaine 5% Patch 1 PATCH TOPICAL (09:08)
--- NOTE | 2025-01-30 10:51 | CASEMGMT ---
Social Work A list of?home health providers including quality and resource use data and consistent with the patient's preferred geographic region, medical needs, and insurance network was created in [employer].? This list was provided to the patient. NARCISA Felton
--- NOTE | 2025-01-30 10:53 | CASEMGMT ---
Social Work SW spoke with the patient in her room. Patient reported she lives at home with her daughter and her daughters boyfriend. Patient reported she can walk very little. Patient reported she has a WC, rollator and FWW at home. She reported she is able to dress herself and takes sponge baths. She reported she is not able to complete steps. SW spoke with the patient about going to a SNF at discharge. Patient was in agreement with going to a SNF. Patient was provided a list of SNF. Patients first choice was [facility]. Referral will be made to [facility] after the patient has therapy. NARCISA Miranda
[2025-01-30] MEDS: 0.9% Saline Lock 10 ML Syringe IV (11:07)
--- NOTE | 2025-01-30 14:53 | CASEMGMT ---
Social Work Referral has been made to [facility]. NARCISA Miranda
--- NOTE | 2025-01-30 15:49 | CASEMGMT ---
Social Work SW notified the patient that [facility] facility accepted her and we are waiting on insurance approval. [facility] call [facility] unit if precert is obtained over the weekend. Green sheet is on the chart to facilitate weekend discharge. NARCISA Miranda
[2025-01-31] VITALS (7 sets, daily range): BP systolic 87–126; BP diastolic 53–92; PULSE 81–90; RESP 15–18; TEMP 36.2–36.5; O2SAT 95–100; BMI 28.5
[2025-01-31] MEDS: 0.9% Saline Lock 10 ML Syringe IV ×3 (06:43→22:56)
[2025-01-31 06:54] LABS: Hematocrit 39.6 % (37-47); Hemoglobin 12.6 g/dL (12.0-15.0); Immature Granulocytes Count 0.030 X10^3/uL (0.0-0.0); Mean Corp Hgb Conc 31.8 g/dL (32-36); Mean Corpuscular Volume 84.8 fL (81-99); Mean Platelet Vol. 9.5 fl (6.2-12.0); NRBC Flagged by Analyzer 0 % (0-5); Platelet Count 228 K/mm3 (150-450); RBC Distribution Width CV 14.5 % (11.6-14.6); RBC Distribution Width SD 44.3 fl (35.1-43.9); Red Blood Count 4.67 M/mm3 (4.2-5.4); White Blood Count 7.7 K/mm3 (4.4-11.0)
[2025-01-31 07:41] LABS: Magnesium 2.0 mg/dL (1.5-2.2)
[2025-01-31 07:42] LABS: Anion Gap 7 (5-15); BUN 15 mg/dL (4-19); BUN/Creat Ratio 21.4 RATIO (10-20); Calcium,Total 8.8 mg/dL (7.6-11.0); Carbon Dioxide 23.9 mmol/L (21.0-32.0); Chloride 103 mmol/L (98-108); Estimated Creatinine Clearance 96.75 ml/min (50-250); Glucose 132 mg/dL (70-99); Potassium 5.0 mmol/L (3.3-5.1)
[2025-01-31 07:42] LABS: Mucous, Urine 0 SEEN /hpf (<or=2+); Red Blood Cells-Urine 0 SEEN /hpf (0-5)
[2025-01-31 08:07] LABS: Color, Urine Yellow (Yellow); Glucose, Dipstick Normal (Normal); Ketone-Dipstick Negative (Negative); Leukocyte Esterase-Dipstick 25 /ul (Negative); Nitrite-Dipstick Negative (Negative); Occult Blood-Urine 10 /ul (Negative); Protein-Dipstick 30 mg/dl (Negative); Specific Gravity, Urine 1.010 (1.002-1.030); Urine Bilirubin Dipstick Negative (Negative)
[2025-01-31 08:09] LABS: Barbiturate Urine NEGATIVE (< 200 ng/mL); Benzodiazepine Urine NEGATIVE (< 200 ng/mL); PCP Urine NEGATIVE (< 25 ng/mL); THC Urine PRESUMPTIVE POSITIVE (< 50 ng/mL)
[2025-01-31 08:15] LABS: Squamous Epithelial Cells - UA 5-10 SEEN /hpf (5-10); Transitional Epithelial - Ur 0-5 SEEN /hpf (0-5); Yeast-Urine 1+ /hpf (None Seen)
--- NOTE | 2025-01-31 09:19 | PCM.PN.HOSP ---
Reason for Visit Chief Complaint: Severe Right Hip Pain and Inability to Ambulate. Subjective Subjective Saw patient at bedside this morning. PT/OT were about to work with the patient when I saw her. Patient was sitting back in bed and appeared fairly comfortable but noted that she continued to have significant pain in her right pubic area. Had gotten doses of both IV morphine and p.o. oxycodone yesterday evening and overnight with moderate relief of pain. Denies any other new concerns this morning. Objective Data Objective Data Vital Signs: Vital Signs Temp Pulse Resp BP Pulse Ox O2 Del Method O2 Flow Rate 97.6 F L 82 17 106/61 100 Nasal Cannula 2 01/31/25 06:37 01/31/25 06:37 01/31/25 06:37 01/31/25 06:37 01/31/25 06:37 01/31/25 06:37 01/31/25 06:37 Oxygen Flow Rate (L/min) 2 Oxygen Delivery Method Nasal Cannula Weight: 80.6 kg Body Mass Index (BMI) 28.5 Intake & Output: Intake and Output for Last 24 Hours 01/29/25 01/30/25 01/31/25 23:59 23:59 23:59 Intake Total 2400 / 2400 300 / 300 Output Total 900 / 900 400 / 400 Balance 1500 / 1500 -100 / -100 Lab / Micro Data 01/31/25 06:32 01/31/25 06:32 Labs: Laboratory Results - last 24 hr 01/30/25 12:01: POC Glucose 259 H 01/30/25 16:10: POC Glucose 136 H 01/30/25 23:03: POC Glucose 233 H 01/31/25 06:32: WBC 7.7, RBC 4.67, Hgb 12.6, Hct 39.6, MCV 84.8, MCH 27.0, MCHC 31.8 L, RDW Std Deviation 44.3 H, RDW Coeff of Spencer 14.5, Plt Count 228, MPV 9.5, Immature Gran % (Auto) 0.400, Neut % (Auto) 60.2, Lymph % (Auto) 30.6, [place] % (Auto) 7.0, Eos % (Auto) 1.2, Baso % (Auto) 0.6, Absolute Neuts (auto) 4.7, Absolute Lymphs (auto) 2.36, Nucleated RBC % 0, Sodium 133, Potassium 5.0, Chloride 103, Carbon Dioxide 23.9, Anion Gap 7, BUN 15, Creatinine 0.72, Estim Creat Clear Calc 96.75, Est GFR (MDRD) Non-Af 101, BUN/Creatinine Ratio 21.4 H, Glucose 132 H, Calcium 8.8, Phosphorus 4.0, Magnesium 2.0, POC Glucose 155 H 01/31/25 07:30: Urine Color Yellow, Urine Clarity Clear, Urine pH 6.5, Ur Specific [place] 1.010, Urine Protein 30 H, Urine Glucose (UA) Normal, Urine Ketones Negative, Urine Occult Blood 10 H, Urine Nitrite Negative, Urine Bilirubin Negative, Urine Urobilinogen Normal, Ur Leukocyte Esterase 25 H, Urine RBC 0 SEEN, Urine WBC 0-5 SEEN, Ur Squamous Epith Cells 5-10 SEEN, Ur Transition Epith Cell 0-5 SEEN, Urine Bacteria 1+, Urine Mucus 0 SEEN, Urine Yeast 1+, Urine Opiates Screen PRESUMPTIVE POSITIVE, U Buprenorphine Qual NEGATIVE, Ur Oxycodone Screen PRESUMPTIVE POSITIVE, Urine Methadone Screen NEGATIVE, Urine Fentanyl Screen NEGATIVE, Ur Barbiturates Screen NEGATIVE, Ur Phencyclidine Scrn NEGATIVE, Ur Amphetamines Screen NEGATIVE, U Benzodiazepines Scrn NEGATIVE, Urine Cocaine Screen NEGATIVE, U Cannabinoids Screen PRESUMPTIVE POSITIVE Physical Exam Const alert, oriented x3, no apparent distress and average body habitus Constitutional Narrative: Middle-age female, appears older than stated age, mildly fatigued appearing, otherwise sitting back fairly comfortably in bed, conversing normally, in no acute distress. General Appearance: cooperative and comfortable HEENT normocephalic, head/scalp atraumatic, hearing grossly normal bilaterally, nasal mucous membranes and turbinates normal and moist oral mucous membranes Eyes PERRL, EOMs intact bilaterally and conjunctivae normal Neck full ROM Chest inspection of chest normal Resp normal respiratory effort, normal air movement, no use of accessory muscles and clear to auscultation bilaterally Cardio regular rate, regular rhythm, no murmurs and peripheral pulses 2+ throughout GI normal to inspection, nondistended, normoactive bowel sounds, soft to palpation, non-tender and non-distended Back/Spine normal ROM Extremity normal to inspection and no pedal edema Extremity Narrative: Tenderness to palpation noted in the right groin/pubic bone area. Skin no rashes or lesions noted Psych mental status grossly normal Assessment & Plan Assessment/Plan (1) Fracture of pubic ramus: QUALIFIERS: Encounter type: initial encounter Fracture type: closed Laterality: right Qualified Code(s): S32.591A - Other specified fracture of right pubis, initial encounter for closed fracture (2) Ambulatory dysfunction: PLAN: Plan Patient is a 54-year-old female who presented to [facility] ED on 01/29/2025 with right hip/groin pain and inability to ambulate. 1. Inability to ambulate secondary to acute nondisplaced right inferior and superior pubic process fracture ? PT/OT/case management consulted. Hip/Pelvis x-ray on admit showed acute nondisplaced fracture of right inferior and superior pubic processes along with osteopenia. Mechanism of injury unclear. Pain control with scheduled Tylenol, p.o. oxycodone as needed and IV morphine as needed. Notably patient has reported significant pain and is been utilizing both oxycodone and morphine. P.o. Celebrex 100 mg twice daily added on 01/30; notably will only use for limited time due to GI implications and cardiac issues at baseline. Will decrease p.o. oxycodone and IV morphine to every 6 hours as needed, with plan to taper off morphine by tomorrow or Sunday. Bowel regimen ordered. Plan is for SNF placement on discharge. Not medically ready yet due to ongoing pain and need for IV pain medication; should be medically ready in the next 1 to 2 days. 2. Poorly controlled type 2 diabetes mellitus with diabetic neuropathy and gastroparesis ? A1c 13.2% on admit. Blood glucose in the high 300s. Increased home Lantus from 20 units daily to 20 units twice daily with improved blood sugar control. Continue Lantus 20 twice daily and Humalog sliding scale with meals as needed. Continue home gabapentin and Reglan as needed. 3. History of nonobstructive CAD, chronic combined CHF, chronic hypertension, hyperlipidemia, severe peripheral vascular disease ? Stable and euvolemic on admit. Most recent echo on 09/01/2024 showed EF 30%, which is improved from prior EF of 15% in 2022. Has been hypotensive to the 80s to 90s systolic since admission and asymptomatic. History of peripheral artery stenting about 2 years ago. Continue home aspirin, Plavix, statin, Coreg, Lasix, Entresto, spironolactone and midodrine. Hold parameters in place. 4. Tobacco dependence ? Nicotine patch in place per patient request. Discussed cessation of discharge. Chronic medical conditions: ? GERD: Continue home PPI. ? Vitamin D deficiency: Continue home supplement. ? Depression: Stable. Continue home escitalopram ? History of compression fractures of L3 and L5: Complicates hospital course and care. DVT prophylaxis: Lovenox CODE STATUS: Full code, verified Expected disposition: SNF, 1 to 2 days Total clinical time spent by myself addressing the patient's medical issues, reviewing all the data, and collaborating with patient's care team: 35 minutes. Charges/Coding Visit Charges Inpatient E&M: 71099 Subs Hosp L2
[2025-01-31] MEDS: Nicotine (PBKC) 14 MG Patch TD (09:52)
[2025-01-31] MEDS: Senna/Docusate Sodium 1 Tablet 2 TABLET PO ×2 (09:52→21:35)
[2025-01-31] MEDS: Lidocaine 5% Patch 1 PATCH TOPICAL (09:53)
[2025-01-31] MEDS: Insulin Glargine-YFGN 100 UNIT/ML Pen 20 UNIT SC ×2 (09:53→21:44)
--- NOTE | 2025-01-31 14:37 | NURSING ---
Pt sleeping or resting quietly until staff goes into room then pt begins moaning/crying. Offers to reposition are refused because pt states she will fall asleep and she wants to stay awake for pain medicine. Routine meds for pain/muscle spasm administered. Pt states they dont help. PRN oxy administered and will evaluate for effectiveness before administering morphine.
[2025-01-31] MEDS: SACUBITRIL/VALSARTAN 24/26 MG TABLET 1 EACH PO (21:36)
[2025-02-01 03:04] VITALS: BP 124/74; PULSE 85; RESP 16; TEMP 36.4; O2SAT 94
[2025-02-01 04:30] VITALS: BMI 28.5
[2025-02-01 06:34] VITALS: BP 117/71; PULSE 84; RESP 16; TEMP 36.3; O2SAT 97
[2025-02-01] MEDS: Lidocaine 5% Patch 1 PATCH TOPICAL (07:38)
[2025-02-01] MEDS: Senna/Docusate Sodium 1 Tablet 2 TABLET PO ×2 (07:40→22:39)
[2025-02-01] MEDS: Insulin Glargine-YFGN 100 UNIT/ML Pen 20 UNIT SC ×2 (07:41→22:37)
[2025-02-01] MEDS: Nicotine (PBKC) 14 MG Patch TD (07:44)
[2025-02-01 08:34] VITALS: BP 93/75; PULSE 84; RESP 16; TEMP 36.6; O2SAT 100
--- NOTE | 2025-02-01 09:11 | PCM.PN.HOSP ---
Reason for Visit Chief Complaint: Severe Right Hip Pain and Inability to Ambulate. Subjective Subjective Saw patient at bedside this morning. Patient appeared similar today to yesterday. She has continued to utilize both IV morphine and p.o. oxycodone about every 6 hours for pain control. Notes that her pain has been significant with movement and also kept her from sleeping well last night. Notably she does appear fairly comfortable at rest on my encounter. She denies any other acute concerns this morning. Objective Data Objective Data Vital Signs: Vital Signs Temp Pulse Resp BP Pulse Ox O2 Del Method O2 Flow Rate 97.8 F 84 16 93/75 100 Room Air 2 02/01/25 08:34 02/01/25 08:34 02/01/25 08:34 02/01/25 08:34 02/01/25 08:34 02/01/25 08:34 01/31/25 06:37 Oxygen Flow Rate (L/min) 2 Oxygen Delivery Method Room Air Weight: 80.4 kg Body Mass Index (BMI) 28.5 Intake & Output: Intake and Output for Last 24 Hours 01/30/25 01/31/25 02/01/25 23:59 23:59 23:59 Intake Total 2400 / 2400 1140 / 1390 250 / 250 Output Total 900 / 900 650 / 650 300 / 300 Balance 1500 / 1500 490 / 740 -50 / -50 Lab / Micro Data 01/31/25 06:32 01/31/25 06:32 Labs: Laboratory Results - last 24 hr 01/31/25 11:53: POC Glucose 155 H 01/31/25 16:43: POC Glucose 165 H 01/31/25 21:43: POC Glucose 164 H 02/01/25 06:31: POC Glucose 172 H Physical Exam Const alert, oriented x3, no apparent distress and average body habitus Constitutional Narrative: Middle-age female, appears older than stated age, mildly fatigued appearing, otherwise sitting back fairly comfortably in bed, conversing normally, in no acute distress. Stable. General Appearance: cooperative and comfortable HEENT normocephalic, head/scalp atraumatic, hearing grossly normal bilaterally, nasal mucous membranes and turbinates normal and moist oral mucous membranes Eyes PERRL, EOMs intact bilaterally and conjunctivae normal Neck full ROM Chest inspection of chest normal Resp normal respiratory effort, normal air movement, no use of accessory muscles and clear to auscultation bilaterally Cardio regular rate, regular rhythm, no murmurs and peripheral pulses 2+ throughout GI normal to inspection, nondistended, normoactive bowel sounds, soft to palpation, non-tender and non-distended Back/Spine normal ROM Extremity normal to inspection and no pedal edema Extremity Narrative: Tenderness to palpation noted in the right groin/pubic bone area. Stable. Skin no rashes or lesions noted Psych mental status grossly normal Assessment & Plan Assessment/Plan (1) Fracture of pubic ramus: QUALIFIERS: Encounter type: initial encounter Fracture type: closed Laterality: right Qualified Code(s): S32.591A - Other specified fracture of right pubis, initial encounter for closed fracture (2) Ambulatory dysfunction: PLAN: Plan Patient is a 54-year-old female who presented to [facility] ED on 01/29/2025 with right hip/groin pain and inability to ambulate. 1. Inability to ambulate secondary to acute nondisplaced right inferior and superior pubic process fracture ? PT/OT/case management following. Hip/Pelvis x-ray on admit showed acute nondisplaced fracture of right inferior and superior pubic processes along with osteopenia. Mechanism of injury unclear. Pain control with scheduled Tylenol, p.o. oxycodone as needed and IV morphine as needed. Notably patient has reported significant pain and has been utilizing both oxycodone and morphine about every 6 hours. P.o. Celebrex 100 mg twice daily added on 01/30; notably will only use for limited time due to GI implications and cardiac issues at baseline. Will keep p.o. oxycodone on every 4 hours as needed and IV morphine on every 6 hours as needed, but I noted to patient that we will need to begin tapering down the IV morphine over the next 1 to 2 days, with tentative plan to have patient medically ready for discharge to SNF on Saturday 02/03. She was understanding of this. Bowel regimen is in place. 2. Poorly controlled type 2 diabetes mellitus with diabetic neuropathy and gastroparesis ? A1c 13.2% on admit. Blood glucose in the high 300s. Increased home Lantus from 20 units daily to 20 units twice daily with improved blood sugar control. Continue Lantus 20 twice daily and Humalog sliding scale with meals as needed. Continue home gabapentin and Reglan as needed. 3. History of nonobstructive CAD, chronic combined CHF, chronic hypertension, hyperlipidemia, severe peripheral vascular disease ? Stable and euvolemic on admit. Most recent echo on 09/01/2024 showed EF 30%, which is improved from prior EF of 15% in 2022. Has been hypotensive to the 80s to 90s systolic since admission and asymptomatic. History of peripheral artery stenting about 2 years ago. Continue home aspirin, Plavix, statin, Coreg, Lasix, Entresto, spironolactone and midodrine. Hold parameters in place. 4. Tobacco dependence ? Nicotine patch in place per patient request. Discussed cessation of discharge. Chronic medical conditions: ? GERD: Continue home PPI. ? Vitamin D deficiency: Continue home supplement. ? Depression: Stable. Continue home escitalopram ? History of compression fractures of L3 and L5: Complicates hospital course and care. DVT prophylaxis: Lovenox CODE STATUS: Full code, verified Expected disposition: SNF, 1 to 2 days Total clinical time spent by myself addressing the patient's medical issues, reviewing all the data, and collaborating with patient's care team: 35 minutes. Charges/Coding Visit Charges Inpatient E&M: 78923 Subs Hosp L2
[2025-02-01 11:00] VITALS: BP 105/53; PULSE 81; RESP 16; TEMP 36.6; O2SAT 99
[2025-02-01] MEDS: 0.9% Saline Lock 10 ML Syringe IV ×3 (12:25→22:46)
[2025-02-01 15:08] VITALS: BP 119/68; PULSE 85; RESP 16; TEMP 36.6; O2SAT 98
[2025-02-01 22:25] VITALS: BP 118/74; PULSE 97; RESP 17; TEMP 36.6; O2SAT 99
[2025-02-01] MEDS: SACUBITRIL/VALSARTAN 24/26 MG TABLET 1 EACH PO (22:36)
[2025-02-02] VITALS (7 sets, daily range): BP systolic 93–127; BP diastolic 51–81; PULSE 79–87; RESP 15–18; TEMP 36.3–36.9; O2SAT 94–99; BMI 28.8
[2025-02-02 04:45] LABS: Hematocrit 33.3 % (37-47); Hemoglobin 10.6 g/dL (12.0-15.0); Mean Corp Hgb Conc 31.8 g/dL (32-36); Mean Corpuscular Volume 85.4 fL (81-99); Mean Platelet Vol. 9.6 fl (6.2-12.0); Platelet Count 189 K/mm3 (150-450); RBC Distribution Width CV 15.0 % (11.6-14.6); RBC Distribution Width SD 46.7 fl (35.1-43.9); Red Blood Count 3.90 M/mm3 (4.2-5.4); White Blood Count 5.5 K/mm3 (4.4-11.0)
[2025-02-02 05:30] LABS: Anion Gap 9 (5-15); BUN 25 mg/dL (4-19); BUN/Creat Ratio 29.0 RATIO (10-20); Calcium,Total 8.4 mg/dL (7.6-11.0); Carbon Dioxide 20.3 mmol/L (21.0-32.0); Chloride 107 mmol/L (98-108); Estimated Creatinine Clearance 81.38 ml/min (50-250); Glucose 116 mg/dL (70-99); Potassium 5.0 mmol/L (3.3-5.1)
--- NOTE | 2025-02-02 08:33 | NURSING ---
Pt agitated and taking it out on this RN that The Doctor told me that if my blood sugar is less then 180 I can have regular coke. Pt states she drinks regular pepsi at home all the time and I have been a diabetic for a long time and I'm fine. This Rn tried to educate pt and pt did not want to hear it. Pt stayed agitated until this RN took her blood sugar which was 121 and pt asked again if she could have the regular coke. This RN agreed since pt has a 6 pack of pepsi that has not been open and she is saving for when she goes to the detention:. This RN took pts vital signs and then pt states, oh good I can have my morphine. Pt is watching tv, eating breakfast and chuckling but when my attention is on her she moans and says shes in so much pain. Pt states the oxy worked but wore off already.
[2025-02-02] MEDS: SACUBITRIL/VALSARTAN 24/26 MG TABLET 1 EACH PO ×2 (08:46→21:37)
[2025-02-02] MEDS: Nicotine (PBKC) 14 MG Patch TD (08:46)
[2025-02-02] MEDS: Lidocaine 5% Patch 1 PATCH TOPICAL (08:47)
[2025-02-02] MEDS: Senna/Docusate Sodium 1 Tablet 2 TABLET PO (08:47)
[2025-02-02] MEDS: Insulin Glargine-YFGN 100 UNIT/ML Pen 20 UNIT SC (09:21)
--- NOTE | 2025-02-02 12:11 | PN_ITS ---
Subjective Subjective Patient seen and examined. She still complained of generalised pain though she was lying calmly in bed at time of review. Review of systems is otherwise negative. SHe has remained hemodynamically stable. Objective Data Objective Data Vital Signs: Vital Signs Temp Pulse Resp BP Pulse Ox O2 Del Method O2 Flow Rate 97.4 F L 79 18 114/68 96 Room Air 2 02/02/25 08:37 02/02/25 08:37 02/02/25 08:37 02/02/25 08:37 02/02/25 08:37 02/02/25 08:37 02/02/25 04:25 Oxygen Flow Rate (L/min) 2 Oxygen Delivery Method Room Air Weight: 179 lb 7.3 oz Body Mass Index (BMI) 28.8 Intake & Output: Intake and Output for Last 24 Hours 01/31/25 02/01/25 02/02/25 23:59 23:59 23:59 Intake Total 1140 / 1390 1900 / 2230 680 / 680 Output Total 650 / 650 300 / 300 700 / 700 Balance 490 / 740 1600 / 1930 -20 / -20 Lab / Micro Data 02/02/25 04:25 02/02/25 04:25 Labs: Laboratory Results - last 24 hr 02/01/25 15:41: POC Glucose 179 H 02/01/25 22:20: POC Glucose 158 H 02/02/25 04:25: WBC 5.5, RBC 3.90 L, Hgb 10.6 L, Hct 33.3 L, MCV 85.4, MCH 27.2, MCHC 31.8 L, RDW Std Deviation 46.7 H, RDW Coeff of [place] 15.0 H, Plt Count 189, MPV 9.6, Sodium 137, Potassium 5.0, Chloride 107, Carbon Dioxide 20.3 L, Anion Gap 9, BUN 25 H, Creatinine 0.86, Estim Creat Clear Calc 81.38, Est GFR (MDRD) Non-Af 81, BUN/Creatinine Ratio 29.0 H, Glucose 116 H, Calcium 8.4 02/02/25 06:32: POC Glucose 120 H 02/02/25 08:30: POC Glucose 121 H Physical Exam Const alert, oriented x3 and no apparent distress General Appearance: cooperative HEENT normocephalic, head/scalp atraumatic, moist oral mucous membranes and oropharynx normal Eyes EOMs intact bilaterally Neck no lymphadenopathy and supple Lymph Lymphatic: no lymphedema noted Resp normal respiratory effort, normal air movement and clear to auscultation bilaterally Cardio regular rate, regular rhythm, S1 normal heart sound, S2 normal heart sound and no murmurs GI normal to inspection, nondistended, normoactive bowel sounds, soft to palpation, non-tender and non-distended Extremity normal capillary refill, no clubbing, cyanosis or edema and no calf tenderness General Extremity: no tenderness to palpation of joints or extremities Skin General Skin Exam: no breakdown Neuro no focal motor deficits and no sensory deficits noted Motor Exam: general weakness Psych thought process normal, cooperative and affect normal Appearance: appropriate Assessment & Plan Assessment/Plan (1) Severe pain: (2) Fracture of pubic ramus: QUALIFIERS: Encounter type: initial encounter Fracture type: c losed Laterality: right Qualified Code(s): S32.591A - Other specified fracture of right pubis, initial encounter for closed fracture PLAN: Plan #Debililty and weakness due to acute nondisplaced right inferior and superior pubic process fracture * admitted with a compliant of right hip pain and inability to ambulate. Denied any history of mechanical fall. * imaging shoed the acute nondisplaced fracture of right inferior and superior pubic processes along with osteopenia. * on PO tylenol, POO oxycodone and IV morphine prn for pain. * fall precautions. * #Type 2 diabetes mellitus with diabetic neuropathy and gastroparesis * A1C was 13.2 on admission * on lantus which was increased from 20 units daily to 20 units bid. * ISS. Accuchecks ACHS. * #History of nonobstructive CAD * on aspirin, high intensity statin and plavix. On Coreg. * #HFrEF: * not in exacerbation. Has known EF of 30% on 09/01/2024, improved from previous EF of 15%. * on lasix, entresto, spironolactone and midodrine. * #History of PAD s/p stents: on aspirin, plavix and statin. #Nicotine dependence: counseled to quit. Nicotine patch prn #GERD: on PPI #Depression: on escitalopram. #History of compression fracture of L3 and L5: PT/OT On board. Fall precuations. DVT prophylaxis: lovenox Disposition: awaiting placement, pending precert. Charges/Coding Visit Charges Inpatient E&M: 37696 Subs Hosp L2
--- NOTE | 2025-02-02 19:07 | NURSING ---
Pt agitated that RN gave her oxycodone po and not Morphine. Despite education regarding low BP and morphine administration pt wants to see this RN.
[2025-02-03 05:21] VITALS: BMI 28.8
[2025-02-03 06:19] LABS: Hematocrit 34.0 % (37-47); Hemoglobin 10.8 g/dL (12.0-15.0); Immature Granulocytes Count 0.030 X10^3/uL (0.0-0.0); Mean Corp Hgb Conc 31.8 g/dL (32-36); Mean Corpuscular Volume 87.6 fL (81-99); Mean Platelet Vol. 10.3 fl (6.2-12.0); NRBC Flagged by Analyzer 0 % (0-5); Platelet Count 188 K/mm3 (150-450); RBC Distribution Width CV 15.2 % (11.6-14.6); RBC Distribution Width SD 48.6 fl (35.1-43.9); Red Blood Count 3.88 M/mm3 (4.2-5.4); White Blood Count 6.4 K/mm3 (4.4-11.0)
[2025-02-03 06:47] LABS: Anion Gap 7 (5-15); BUN 30 mg/dL (4-19); BUN/Creat Ratio 32.2 RATIO (10-20); Calcium,Total 8.5 mg/dL (7.6-11.0); Carbon Dioxide 22.1 mmol/L (21.0-32.0); Chloride 107 mmol/L (98-108); Estimated Creatinine Clearance 76.12 ml/min (50-250); Glucose 119 mg/dL (70-99); Potassium 5.2 mmol/L (3.3-5.1)
[2025-02-03 09:01] VITALS: BP 105/61; PULSE 84; RESP 18; TEMP 36.3; O2SAT 99
[2025-02-03] MEDS: Nicotine (PBKC) 14 MG Patch TD (09:09)
[2025-02-03] MEDS: SACUBITRIL/VALSARTAN 24/26 MG TABLET 1 EACH PO ×2 (09:09→21:26)
--- NOTE | 2025-02-03 09:09 | CASEMGMT ---
Discharge Planning Clinical updates sent to [facility]. Arelis Ngo DC Planning Asst.
[2025-02-03] MEDS: Senna/Docusate Sodium 1 Tablet 2 TABLET PO ×2 (09:11→21:19)
[2025-02-03] MEDS: Lidocaine 5% Patch 1 PATCH TOPICAL (09:11)
[2025-02-03] MEDS: Insulin Glargine-YFGN 100 UNIT/ML Pen 20 UNIT SC ×2 (09:12→21:23)
--- NOTE | 2025-02-03 10:19 | PN_ITS ---
Subjective Subjective Patient seen and examined with her nurse by her bedside. She still complained of pain and wanted her pain meds. REview of systems is otherwise negative. She is awaiting placement. Objective Data Objective Data Vital Signs: Vital Signs Temp Pulse Resp BP Pulse Ox O2 Del Method O2 Flow Rate 97.3 F L 84 18 105/61 99 Room Air 2 02/03/25 09:01 02/03/25 09:01 02/03/25 09:01 02/03/25 09:01 02/03/25 09:01 02/03/25 09:06 02/03/25 04:00 Oxygen Flow Rate (L/min) 2 Oxygen Delivery Method Room Air Weight: 179 lb 10.828 oz Body Mass Index (BMI) 28.8 Intake & Output: Intake and Output for Last 24 Hours 02/01/25 02/02/25 02/03/25 23:59 23:59 23:59 Intake Total 1900 / 2230 1440 / 1440 Output Total 300 / 300 2300 / 2300 300 / 300 Balance 1600 / 1930 -860 / -860 -300 / -300 Lab / Micro Data 02/03/25 05:24 02/03/25 05:24 Labs: Laboratory Results - last 24 hr 02/02/25 12:00: POC Glucose 206 H 02/02/25 16:53: POC Glucose 190 H 02/02/25 21:44: POC Glucose 127 H 02/03/25 05:24: WBC 6.4, RBC 3.88 L, Hgb 10.8 L, Hct 34.0 L, MCV 87.6, MCH 27.8, MCHC 31.8 L, RDW Std Deviation 48.6 H, RDW Coeff of Spencer 15.2 H, Plt Count 188, MPV 10.3, Immature Gran % (Auto) 0.500, Neut % (Auto) 60.5, Lymph % (Auto) 29.2, [place] % (Auto) 7.8, Eos % (Auto) 1.4, Baso % (Auto) 0.6, Absolute Neuts (auto) 3.9, Absolute Lymphs (auto) 1.87, Nucleated RBC % 0, Sodium 136, Potassium 5.2 H , Chloride 107, Carbon Dioxide 22.1, Anion Gap 7, BUN 30 H, Creatinine 0.92, Estim Creat Clear Calc 76.12, Est GFR (MDRD) Non-Af 74, BUN/Creatinine Ratio 32.2 H, Glucose 119 H, Calcium 8.5 02/03/25 06:27: POC Glucose 159 H Physical Exam Const alert, oriented x3, no apparent distress and average body habitus General Appearance: cooperative and comfortable HEENT normocephalic, head/scalp atraumatic, hearing grossly normal bilaterally, nasal mucous membranes and turbinates normal, moist oral mucous membranes and oropharynx normal Eyes PERRL, EOMs intact bilaterally and conjunctivae normal Neck full ROM and supple Lymph Lymphatic: no lymphedema noted Chest inspection of chest normal Resp normal respiratory effort, normal air movement, no retractions, no use of accessory muscles and clear to auscultation bilaterally Cardio regular rate, regular rhythm, S1 normal heart sound, S2 normal heart sound, no murmurs, no rub, no gallops, no clicks and peripheral pulses 2+ throughout GI normal to inspection, nondistended, normoactive bowel sounds, soft to palpation, non-tender and non-distended Back/Spine normal ROM Extremity normal to inspection, normal capillary refill, no clubbing, cyanosis or edema, no calf tenderness and no pedal edema General Extremity: no tenderness to palpation of joints or extremities Skin no rashes or lesions noted General Skin Exam: no breakdown Neuro oriented x3, CN's II-XII intact bilaterally, moves all extremities, no focal motor deficits and no sensory deficits noted Sensorium / Orientation: awake and alert Speech: speech normal Motor Exam: general weakness Psych mental status grossly normal, thought process normal, cooperative and affect normal Appearance: appropriate Assessment & Plan Assessment/Plan (1) Severe pain: (2) Fracture of pubic ramus: PLAN: Plan #Debililty and weakness due to acute nondisplaced right inferior and superior pubic process fracture * admitted with a compliant of right hip pain and inability to ambulate. Denied any history of mechanical fall. * imaging showed the acute nondisplaced fracture of right inferior and superior pubic processes along with osteopenia. * on PO tylenol, PO oxycodone prn for pain. * fall precautions. * #Type 2 diabetes mellitus with diabetic neuropathy and gastroparesis * A1C was 13.2 on admission * on lantus which was increased from 20 units daily to 20 units bid. * ISS. Accuchecks ACHS. * #History of nonobstructive CAD * on aspirin, high intensity statin and plavix. On Coreg. * #HYperkalemia: K is 5.2. WIll give kayexalate, and hold spironolactone today. #HFrEF: * not in exacerbation. Has known EF of 30% on 09/01/2024, improved from previous EF of 15%. * on lasix, entresto, spironolactone and midodrine. * spironolactone held due to hyperkalemia. * #History of PAD s/p stents: on aspirin, plavix and statin. #Nicotine dependence: counseled to quit. Nicotine patch prn #GERD: on PPI #Depression: on escitalopram. #History of compression fracture of L3 and L5: PT/OT On board. Fall precuations. DVT prophylaxis: lovenox Disposition: awaiting placement, pending precert. Charges/Coding Visit Charges Inpatient E&M: 91330 Subs Hosp L2
[2025-02-03 14:19] VITALS: BP 130/71; PULSE 93; RESP 18; TEMP 36.6; O2SAT 97
[2025-02-03 20:50] VITALS: BP 107/61; PULSE 86; RESP 16; TEMP 37; O2SAT 96
[2025-02-03 23:43] VITALS: BP 102/67; PULSE 84; RESP 16; TEMP 36.9; O2SAT 97
[2025-02-04 03:49] VITALS: BP 110/60; PULSE 81; RESP 18; TEMP 36.6; O2SAT 98
[2025-02-04 06:20] LABS: Hematocrit 33.7 % (37-47); Hemoglobin 10.5 g/dL (12.0-15.0); Immature Granulocytes Count 0.020 X10^3/uL (0.0-0.0); Mean Corp Hgb Conc 31.2 g/dL (32-36); Mean Corpuscular Volume 86.6 fL (81-99); Mean Platelet Vol. 9.5 fl (6.2-12.0); NRBC Flagged by Analyzer 0 % (0-5); Platelet Count 194 K/mm3 (150-450); RBC Distribution Width CV 15.1 % (11.6-14.6); RBC Distribution Width SD 48.1 fl (35.1-43.9); Red Blood Count 3.89 M/mm3 (4.2-5.4); White Blood Count 7.2 K/mm3 (4.4-11.0)
[2025-02-04 07:49] LABS: Anion Gap 7 (5-15); BUN 31 mg/dL (4-19); BUN/Creat Ratio 34.9 RATIO (10-20); Calcium,Total 8.7 mg/dL (7.6-11.0); Carbon Dioxide 25.4 mmol/L (21.0-32.0); Chloride 106 mmol/L (98-108); Estimated Creatinine Clearance 80.49 ml/min (50-250); Glucose 160 mg/dL (70-99); Potassium 5.2 mmol/L (3.3-5.1)
[2025-02-04 08:06] VITALS: BP 102/68; PULSE 78; RESP 18; TEMP 36.4; O2SAT 98
[2025-02-04] MEDS: Lidocaine 5% Patch 1 PATCH TOPICAL (08:14)
[2025-02-04] MEDS: SACUBITRIL/VALSARTAN 24/26 MG TABLET 1 EACH PO ×2 (08:14→22:54)
[2025-02-04] MEDS: Nicotine (PBKC) 14 MG Patch TD (08:15)
[2025-02-04] MEDS: Ergocalciferol 1.25 MG (50, 000 UNIT) Capsule PO (08:15)
[2025-02-04] MEDS: Senna/Docusate Sodium 1 Tablet 2 TABLET PO (08:16)
[2025-02-04] MEDS: Insulin Glargine-YFGN 100 UNIT/ML Pen 20 UNIT SC ×2 (08:16→21:04)
--- NOTE | 2025-02-04 11:24 | PCM.PROGNOTE ---
Subjective Subjective Patient seen and examined with her nurse by her bedside. SHe is complaining of pain and constipation. Review of systems is otherwise negative. Objective Data Objective Data Vital Signs: Vital Signs Temp Pulse Resp BP Pulse Ox O2 Del Method O2 Flow Rate 97.5 F L 78 18 102/68 98 Room Air 2 02/04/25 08:06 02/04/25 08:06 02/04/25 08:06 02/04/25 08:06 02/04/25 08:06 02/04/25 08:09 02/03/25 04:00 Oxygen Flow Rate (L/min) 2 Oxygen Delivery Method Room Air Weight: 179 lb 10.828 oz Body Mass Index (BMI) 28.8 Intake & Output: Intake and Output for Last 24 Hours 02/02/25 02/03/25 02/04/25 23:59 23:59 23:59 Intake Total 1440 / 1440 240 / 240 Output Total 2300 / 2300 2200 / 2200 Balance -860 / -860 -1960 / -1960 Lab / Micro Data 02/04/25 06:10 02/04/25 06:10 Labs: Laboratory Results - last 24 hr 02/03/25 11:10: POC Glucose 225 H 02/03/25 16:25: POC Glucose 172 H 02/03/25 21:22: POC Glucose 288 H 02/04/25 06:10: WBC 7.2, RBC 3.89 L, Hgb 10.5 L, Hct 33.7 L, MCV 86.6, MCH 27.0, MCHC 31.2 L, RDW Std Deviation 48.1 H, RDW Coeff of Spencer 15.1 H, Plt Count 194, MPV 9.5, Immature Gran % (Auto) 0.300, Neut % (Auto) 62.7, Lymph % (Auto) 26.4, [place] % (Auto) 8.5, Eos % (Auto) 1.4, Baso % (Auto) 0.7, Absolute Neuts (auto) 4.5, Absolute Lymphs (auto) 1.89, Nucleated RBC % 0, Sodium 139, Potassium 5.2 H, Chloride 106, Carbon Dioxide 25.4, Anion Gap 7, BUN 31 H, Creatinine 0.87, Estim Creat Clear Calc 80.49, Est GFR (MDRD) Non-Af 79, BUN/Creatinine Ratio 34.9 H, Glucose 160 H, Calcium 8.7 02/04/25 06:47: POC Glucose 301 H Physical Exam Const alert, oriented x3, no apparent distress and average body habitus General Appearance: cooperative and comfortable HEENT normocephalic, head/scalp atraumatic, hearing grossly normal bilaterally, nasal mucous membranes and turbinates normal, moist oral mucous membranes and oropharynx normal Eyes PERRL, EOMs intact bilaterally and conjunctivae normal Neck full ROM, no lymphadenopathy and supple Lymph Lymphatic: no lymphedema noted Chest inspection of chest normal Resp normal respiratory effort, normal air movement, no retractions, no use of accessory muscles and clear to auscultation bilaterally Cardio regular rate, regular rhythm, S1 normal heart sound, S2 normal heart sound and no murmurs GI normal to inspection, nondistended, normoactive bowel sounds, soft to palpation, non-tender and non-distended Back/Spine normal ROM Extremity normal to inspection, normal capillary refill, no clubbing, cyanosis or edema, no calf tenderness and no pedal edema Extremity Narrative: Tenderness to palpation noted in the right groin/pubic bone area. Stable. General Extremity: no tenderness to palpation of joints or extremities Skin no rashes or lesions noted General Skin Exam: no breakdown Neuro oriented x3, CN's II-XII intact bilaterally, moves all extremities, no focal motor deficits and no sensory deficits noted Neuro Narrative: Moves all extremities but painful with lower extremity movement Sensorium / Orientation: awake, alert, oriented to person, oriented to place and oriented to time Speech: speech normal Motor Exam: general weakness Psych mental status grossly normal, thought process normal, cooperative and affect normal Appearance: appropriate Assessment & Plan Assessment/Plan (1) Severe pain: (2) Fracture of pubic ramus: QUALIFIERS: Encounter type: initial encounter Fracture type: closed Laterality: right Qualified Code(s): S32.591A - Other specified fracture of right pubis, initial encounter for closed fracture PLAN: Plan #Debililty and weakness due to acute nondisplaced right inferior and superior pubic process fracture admitted with a compliant of right hip pain and inability to ambulate. Denied any history of mechanical fall. imaging showed the acute nondisplaced fracture of right inferior and superior pubic processes along with osteopenia. on PO tylenol, PO oxycodone prn for pain. fall precautions. #Type 2 diabetes mellitus with diabetic neuropathy and gastroparesis A1C was 13.2 on admission on lantus which was increased from 20 units daily to 20 units bid. ISS. Accuchecks ACHS. #History of nonobstructive CAD on aspirin, high intensity statin and plavix. On Coreg. #HYperkalemia: K is still 5.2. REceived kayexalate yesterday, but is yet to have a bowel movement. Spironolactone still on hold. WIll give another dose of kayexalate today. #HFrEF: not in exacerbation. Has known EF of 30% on 09/01/2024, improved from previous EF of 15%. on lasix, entresto, spironolactone and midodrine. spironolactone held due to hyperkalemia. #History of PAD s/p stents: on aspirin, plavix and statin. #Nicotine dependence: counseled to quit. Nicotine patch prn #GERD: on PPI #Depression: on escitalopram. #History of compression fracture of L3 and L5: PT/OT On board. Fall precuations. DVT prophylaxis: lovenox Disposition: awaiting placement, pending precert. Charges/Coding Visit Charges Inpatient E&M: 25618 Subs Hosp L2
[2025-02-04] MEDS: Polyethylene Glycol 3350 17 GM PACKET PO (13:22)
[2025-02-04 14:03] VITALS: BP 112/75; PULSE 98; RESP 18; TEMP 36.6; O2SAT 97
[2025-02-04 20:56] VITALS: BP 104/73; PULSE 93; RESP 18; TEMP 36.9; O2SAT 98
[2025-02-04] MEDS: 0.9% Saline Lock 10 ML Syringe IV (21:11)
[2025-02-04 22:51] VITALS: BP 114/68; PULSE 96; RESP 18; TEMP 36.8; O2SAT 96
[2025-02-05 02:06] VITALS: BP 110/66; PULSE 88; RESP 18; TEMP 36.5; O2SAT 98
[2025-02-05 03:37] VITALS: BMI 29.9
[2025-02-05 06:50] LABS: Hematocrit 33.8 % (37-47); Hemoglobin 10.5 g/dL (12.0-15.0); Immature Granulocytes Count 0.030 X10^3/uL (0.0-0.0); Mean Corp Hgb Conc 31.1 g/dL (32-36); Mean Corpuscular Volume 87.3 fL (81-99); Mean Platelet Vol. 9.9 fl (6.2-12.0); NRBC Flagged by Analyzer 0 % (0-5); Platelet Count 206 K/mm3 (150-450); RBC Distribution Width CV 15.2 % (11.6-14.6); RBC Distribution Width SD 48.6 fl (35.1-43.9); Red Blood Count 3.87 M/mm3 (4.2-5.4); White Blood Count 5.8 K/mm3 (4.4-11.0)
[2025-02-05 07:14] LABS: Anion Gap 8 (5-15); BUN 23 mg/dL (4-19); BUN/Creat Ratio 30.6 RATIO (10-20); Calcium,Total 8.5 mg/dL (7.6-11.0); Carbon Dioxide 26.9 mmol/L (21.0-32.0); Chloride 105 mmol/L (98-108); Estimated Creatinine Clearance 96.41 ml/min (50-250); Glucose 169 mg/dL (70-99); Potassium 4.7 mmol/L (3.3-5.1)
[2025-02-05 07:37] VITALS: BP 123/77; PULSE 89; RESP 15; TEMP 36; O2SAT 97
[2025-02-05] MEDS: Lidocaine 5% Patch 1 PATCH TOPICAL (07:46)
[2025-02-05] MEDS: SACUBITRIL/VALSARTAN 24/26 MG TABLET 1 EACH PO ×2 (07:46→22:02)
[2025-02-05] MEDS: Insulin Glargine-YFGN 100 UNIT/ML Pen 20 UNIT SC ×2 (07:47→22:04)
[2025-02-05] MEDS: Nicotine (PBKC) 14 MG Patch TD (07:47)
--- NOTE | 2025-02-05 08:24 | CASEMGMT ---
Discharge Planning Clinical updates sent to [facility] with request to check on status of precert. Arelis Ngo DC Planning Asst.
--- NOTE | 2025-02-05 13:32 | PN_ITS ---
Subjective Subjective Patient seen and examined with her nurse by her bedside. She was comfortably eating breakfast, but complained of severe pain during my review. SHe denied any fever, chills, cough, chest pain, palpitations, dizziness, nausea, vomiting or any other symptoms. Review of systems is otherwie negative. Objective Data Objective Data Vital Signs: Vital Signs Temp Pulse Resp BP Pulse Ox O2 Del Method O2 Flow Rate 96.8 F L 89 15 123/77 H 97 Room Air 2 02/05/25 07:37 02/05/25 07:37 02/05/25 07:37 02/05/25 07:37 02/05/25 07:37 02/05/25 07:37 02/05/25 02:09 Oxygen Flow Rate (L/min) 2 Oxygen Delivery Method Room Air Weight: 186 lb 11.704 oz Body Mass Index (BMI) 29.9 Intake & Output: Intake and Output for Last 24 Hours 02/03/25 02/04/25 02/05/25 23:59 23:59 23:59 Intake Total 240 / 240 480 / 480 Output Total 2200 / 2200 850 / 850 500 / 500 Balance -1960 / -1960 -370 / -370 -500 / -500 Lab / Micro Data 02/05/25 05:53 02/05/25 05:53 Labs: Laboratory Results - last 24 hr 02/04/25 16:47: POC Glucose 179 H 02/04/25 21:03: POC Glucose 151 H 02/05/25 05:53: WBC 5.8, RBC 3.87 L, Hgb 10.5 L, Hct 33.8 L, MCV 87.3, MCH 27.1, MCHC 31.1 L, RDW Std Deviation 48.6 H, RDW Coeff of Spencer 15.2 H, Plt Count 206, MPV 9.9, Immature Gran % (Auto) 0.500, Neut % (Auto) 56.0, Lymph % (Auto) 33.6, [place] % (Auto) 7.8, Eos % (Auto) 1.4, Baso % (Auto) 0.7, Absolute Neuts (auto) 3.3, Absolute Lymphs (auto) 1.95, Nucleated RBC % 0, Sodium 140, Potassium 4.7, Chloride 105, Carbon Dioxide 26.9, Anion Gap 8, BUN 23 H, Creatinine 0.74, Estim Creat Clear Calc 96.41, Est GFR (MDRD) Non-Af 97, BUN/Creatinine Ratio 30.6 H, G lucose 169 H, Calcium 8.5 02/05/25 06:40: POC Glucose 291 H 02/05/25 11:23: POC Glucose 109 H Physical Exam Const alert, oriented x3, no apparent distress and average body habitus General Appearance: cooperative and comfortable HEENT normocephalic, head/scalp atraumatic, hearing grossly normal bilaterally, nasal mucous membranes and turbinates normal, moist oral mucous membranes and oropharynx normal Eyes PERRL, EOMs intact bilaterally and conjunctivae normal Neck full ROM, no lymphadenopathy and supple Lymph Lymphatic: no lymphedema noted Chest inspection of chest normal Resp normal respiratory effort, normal air movement, no retractions, no use of accessory muscles and clear to auscultation bilaterally Cardio regular rate, regular rhythm, S1 normal heart sound, S2 normal heart sound, no murmurs, no rub, no gallops, no clicks and peripheral pulses 2+ throughout GI normal to inspection, nondistended, normoactive bowel sounds, soft to palpation, non-tender and non-distended Back/Spine normal ROM Extremity normal to inspection, normal capillary refill, no clubbing, cyanosis or edema, no calf tenderness and no pedal edema General Extremity: no tenderness to palpation of joints or extremities Skin no rashes or lesions noted General Skin Exam: no breakdown Neuro oriented x3, CN's II-XII intact bilaterally, moves all extremities, no focal motor deficits and no sensory deficits noted Sensorium / Orientation: awake and alert Speech: speech normal Motor Exam: general weakness Psych mental status grossly normal, thought process normal, cooperative and affect normal Appearance: appropriate Assessment & Plan Assessment/Plan (1) Severe pain: (2) Fracture of pubic ramus: QUALIFIERS: Encounter type: initial encounter Fracture type: c losed Laterality: right Qualified Code(s): S32.591A - Other specified fracture of right pubis, initial encounter for closed fracture PLAN: Plan #Debililty and weakness due to acute nondisplaced right inferior and superior pubic process fracture * admitted with a compliant of right hip pain and inability to ambulate. Denied any history of mechanical fall. * imaging showed the acute nondisplaced fracture of right inferior and superior pubic processes along with osteopenia. * on PO tylenol, PO oxycodone prn for pain. * fall precautions. * #Type 2 diabetes mellitus with diabetic neuropathy and gastroparesis * A1C was 13.2 on admission * on lantus which was increased from 20 units daily to 20 units bid. * ISS. Accuchecks ACHS. * #History of nonobstructive CAD * on aspirin, high intensity statin and plavix. On Coreg. * #HYperkalemia: potassium is down to 4.7. Continue holding spironolactone. #HFrEF: * not in exacerbation. Has known EF of 30% on 09/01/2024, improved from previous EF of 15%. * on lasix, entresto, spironolactone and midodrine. * spironolactone held due to hyperkalemia. * #History of PAD s/p stents: on aspirin, plavix and statin. #Nicotine dependence: counseled to quit. Nicotine patch prn #GERD: on PPI #Depression: on escitalopram. #History of compression fracture of L3 and L5: PT/OT On board. Fall precautions. DVT prophylaxis: lovenox Disposition: awaiting placement, pending precert. Charges/Coding Visit Charges Inpatient E&M: 66380 Subs Hosp L2
[2025-02-05 13:55] VITALS: BP 122/73; PULSE 89; RESP 16; TEMP 36.1; O2SAT 97
[2025-02-05] MEDS: 0.9% Saline Lock 10 ML Syringe IV (13:58)
[2025-02-05 16:48] VITALS: BP 123/72; PULSE 80
[2025-02-05 20:00] VITALS: BP 132/74; PULSE 85; RESP 16; TEMP 36.9; O2SAT 97
[2025-02-06] VITALS (7 sets, daily range): BP systolic 99–149; BP diastolic 58–86; PULSE 69–92; RESP 16; TEMP 36–37.1; O2SAT 97–99
[2025-02-06 06:41] LABS: Hematocrit 32.7 % (37-47); Hemoglobin 10.4 g/dL (12.0-15.0); Immature Granulocytes Count 0.020 X10^3/uL (0.0-0.0); Mean Corp Hgb Conc 31.8 g/dL (32-36); Mean Corpuscular Volume 85.6 fL (81-99); Mean Platelet Vol. 9.6 fl (6.2-12.0); NRBC Flagged by Analyzer 0 % (0-5); Platelet Count 206 K/mm3 (150-450); RBC Distribution Width CV 14.7 % (11.6-14.6); RBC Distribution Width SD 46.6 fl (35.1-43.9); Red Blood Count 3.82 M/mm3 (4.2-5.4); White Blood Count 5.5 K/mm3 (4.4-11.0)
[2025-02-06 08:26] LABS: Anion Gap 10 (5-15); BUN 24 mg/dL (4-19); BUN/Creat Ratio 32.2 RATIO (10-20); Calcium,Total 8.5 mg/dL (7.6-11.0); Carbon Dioxide 24.1 mmol/L (21.0-32.0); Chloride 103 mmol/L (98-108); Estimated Creatinine Clearance 93.87 ml/min (50-250); Glucose 221 mg/dL (70-99); Potassium 4.4 mmol/L (3.3-5.1)
[2025-02-06] MEDS: SACUBITRIL/VALSARTAN 24/26 MG TABLET 1 EACH PO ×2 (08:52→21:44)
[2025-02-06] MEDS: Lidocaine 5% Patch 1 PATCH TOPICAL (08:52)
[2025-02-06] MEDS: Nicotine (PBKC) 14 MG Patch TD (08:53)
[2025-02-06] MEDS: Polyethylene Glycol 3350 17 GM PACKET PO (08:57)
[2025-02-06] MEDS: Insulin Glargine-YFGN 100 UNIT/ML Pen 20 UNIT SC ×2 (10:41→21:46)
--- NOTE | 2025-02-06 10:43 | PN_ITS ---
Subjective Subjective Patient seen and examined with her nurse by her bedside. She still complained of pain. She had no other complaints. SHe is awaiting placement. Review of systems is otherwise negative. She has remained hemodynamically stable. Objective Data Objective Data Vital Signs: Vital Signs Temp Pulse Resp BP Pulse Ox O2 Del Method O2 Flow Rate 97.8 F 89 16 149/86 H 99 Room Air 2 02/06/25 08:47 02/06/25 10:38 02/06/25 08:47 02/06/25 10:38 02/06/25 08:47 02/06/25 08:47 02/05/25 02:09 Oxygen Flow Rate (L/min) 2 Oxygen Delivery Method Room Air Weight: 186 lb 11.704 oz Body Mass Index (BMI) 29.9 Intake & Output: Intake and Output for Last 24 Hours 02/04/25 02/05/25 02/06/25 23:59 23:59 23:59 Intake Total 480 / 480 Output Total 850 / 850 1600 / 1600 650 / 650 Balance -370 / -370 -1600 / -1600 -650 / -650 Lab / Micro Data 02/06/25 06:04 02/06/25 06:04 Labs: Laboratory Results - last 24 hr 02/05/25 11:23: POC Glucose 109 H 02/05/25 16:47: POC Glucose 146 H 02/05/25 21:59: POC Glucose 215 H 02/06/25 06:04: WBC 5.5, RBC 3.82 L, Hgb 10.4 L, Hct 32.7 L, MCV 85.6, MCH 27.2, MCHC 31.8 L, RDW Std Deviation 46.6 H, RDW Coeff of Spencer 14.7 H, Plt Count 206, MPV 9.6, Immature Gran % (Auto) 0.400, Neut % (Auto) 60.3, Lymph % (Auto) 28.8, [place] % (Auto) 7.8, Eos % (Auto) 1.6, Baso % (Auto) 1.1 H, Absolute Neuts (auto) 3.3, Absolute Lymphs (auto) 1.58, Nucleated RBC % 0, Sodium 137, Potassium 4.4, Chloride 103, Carbon Dioxide 24.1, Anion Gap 10, BUN 24 H, Creatinine 0.76, Estim Creat Clear Calc 93.87, Est GFR (MDRD) Non-Af 94, BUN/Creatinine Ratio 32.2 H, Glucose 221 H, Calcium 8.5 02/06/25 06:48: POC Glucose 236 H Physical Exam Const alert, oriented x3, no apparent distress and average body habitus General Appearance: cooperative and comfortable HEENT normocephalic, head/scalp atraumatic, hearing grossly normal bilaterally, nasal mucous membranes and turbinates normal, moist oral mucous membranes and oropharynx normal Eyes PERRL, EOMs intact bilaterally and conjunctivae normal Neck full ROM, no lymphadenopathy and supple Lymph Lymphatic: no lymphedema noted Chest inspection of chest normal Resp normal respiratory effort, normal air movement, no retractions, no use of accessory muscles and clear to auscultation bilaterally Auscultation: Negative for rales, rhonchi or wheezes Cardio regular rate, regular rhythm, S1 normal heart sound, S2 normal heart sound and no murmurs GI normal to inspection, nondistended, normoactive bowel sounds, soft to palpation, non-tender and non-distended Back/Spine normal ROM Extremity normal to inspection, normal capillary refill, no clubbing, cyanosis or edema, no calf tenderness and no pedal edema General Extremity: no tenderness to palpation of joints or extremities Skin no rashes or lesions noted Skin Narrative: Patient has evidence of rash, abscess, wounds or jaundice. General Skin Exam: no breakdown Neuro oriented x3, CN's II-XII intact bilaterally, moves all extremities, no focal motor deficits and no sensory deficits noted Sensorium / Orientation: awake, alert, oriented to person, oriented to place and oriented to time Speech: speech normal Motor Exam: general weakness Psych mental status grossly normal, thought process normal, cooperative and affect normal Appearance: appropriate Assessment & Plan Assessment/Plan (1) Severe pain: (2) Fracture of pubic ramus: QUALIFIERS: Encounter type: initial encounter Fracture type: c losed Laterality: right Qualified Code(s): S32.591A - Other specified fracture of right pubis, initial encounter for closed fracture PLAN: Plan #Debililty and weakness due to acute nondisplaced right inferior and superior pubic process fracture * admitted with a compliant of right hip pain and inability to ambulate. Denied any history of mechanical fall. * imaging showed the acute nondisplaced fracture of right inferior and superior pubic processes along with osteopenia. * on PO tylenol, PO oxycodone prn for pain. * fall precautions. * #Type 2 diabetes mellitus with diabetic neuropathy and gastroparesis * A1C was 13.2 on admission * on lantus which was increased from 20 units daily to 20 units bid. * ISS. Accuchecks ACHS. * #History of nonobstructive CAD * on aspirin, high intensity statin and plavix. On Coreg. * #HYperkalemia:resolved.. Continue holding spironolactone. #HFrEF: * not in exacerbation. Has known EF of 30% on 09/01/2024, improved from previous EF of 15%. * on lasix, entresto, spironolactone and midodrine. * spironolactone held due to hyperkalemia. * * #Hypertension: on carvedilol. Spironolactone on hold due to hyperkalemia. Also on entresto #History of PAD s/p stents: on aspirin, plavix and statin. #Nicotine dependence: counseled to quit. Nicotine patch prn #GERD: on PPI #Depression: on escitalopram. #History of compression fracture of L3 and L5: PT/OT On board. Fall precautions. DVT prophylaxis: lovenox Disposition: still awaiting placement, pending precert. Charges/Coding Visit Charges Inpatient E&M: 95188 Subs Hosp L2
--- NOTE | 2025-02-06 14:10 | CASEMGMT ---
Social Work- SW collaborated with hospitalist to complete LOC/SNF form provided by [facility] for precert and sent via [facility]. SW placed original on chart. SW met with pt to have pt sign form. Pt updated on status of precert. SW remains available to follow. Plan: [facility]; pend precert [facility] Duncan
[2025-02-06] MEDS: Senna/Docusate Sodium 1 Tablet 2 TABLET PO (14:46)
[2025-02-07 02:49] VITALS: BP 106/73; PULSE 90; RESP 16; TEMP 36.7; O2SAT 94
[2025-02-07 06:00] VITALS: BMI 30.1
[2025-02-07 06:43] LABS: Hematocrit 33.0 % (37-47); Hemoglobin 10.4 g/dL (12.0-15.0); Immature Granulocytes Count 0.030 X10^3/uL (0.0-0.0); Mean Corp Hgb Conc 31.5 g/dL (32-36); Mean Corpuscular Volume 86.6 fL (81-99); Mean Platelet Vol. 9.6 fl (6.2-12.0); NRBC Flagged by Analyzer 0 % (0-5); Platelet Count 216 K/mm3 (150-450); RBC Distribution Width CV 15.0 % (11.6-14.6); RBC Distribution Width SD 47.6 fl (35.1-43.9); Red Blood Count 3.81 M/mm3 (4.2-5.4); White Blood Count 5.3 K/mm3 (4.4-11.0)
[2025-02-07 07:05] LABS: Anion Gap 10 (5-15); BUN 23 mg/dL (4-19); BUN/Creat Ratio 24.5 RATIO (10-20); Calcium,Total 8.6 mg/dL (7.6-11.0); Carbon Dioxide 24.8 mmol/L (21.0-32.0); Chloride 104 mmol/L (98-108); Estimated Creatinine Clearance 77.68 ml/min (50-250); Glucose 179 mg/dL (70-99); Potassium 4.5 mmol/L (3.3-5.1)
[2025-02-07 08:56] VITALS: BP 137/69; PULSE 83; RESP 16; TEMP 36.6; O2SAT 95
[2025-02-07] MEDS: Lidocaine 5% Patch 1 PATCH TOPICAL (09:00)
[2025-02-07] MEDS: Nicotine (PBKC) 14 MG Patch TD (09:10)
[2025-02-07] MEDS: SACUBITRIL/VALSARTAN 24/26 MG TABLET 1 EACH PO ×2 (09:12→22:42)
[2025-02-07] MEDS: Insulin Glargine-YFGN 100 UNIT/ML Pen 20 UNIT SC ×2 (09:21→22:49)
--- NOTE | 2025-02-07 14:28 | PN_ITS ---
Subjective Subjective Patient seen and examined. She still complains of pain. She has no other complaints and had an uneventful night. Review of systems otherwise negative. She has remained hemodynamically stable. Objective Data Objective Data Vital Signs: Vital Signs Temp Pulse Resp BP Pulse Ox O2 Del Method O2 Flow Rate 97.9 F 83 16 137/69 H 95 Room Air 2 02/07/25 08:56 02/07/25 08:56 02/07/25 08:56 02/07/25 08:56 02/07/25 08:56 02/07/25 08:56 02/05/25 02:09 Oxygen Flow Rate (L/min) 2 Oxygen Delivery Method Room Air Weight: 187 lb 6.287 oz Body Mass Index (BMI) 30.1 Intake & Output: Intake and Output for Last 24 Hours 02/05/25 02/06/25 02/07/25 23:59 23:59 23:59 Output Total 1599 / 1599 2049 / 2049 Balance -1600 / -1600 -2049 / Lab / Micro Data 02/07/25 06:10 02/07/25 06:10 Labs: Laboratory Results - last 24 hr 02/06/25 16:41: POC Glucose 170 H 02/06/25 21:42: POC Glucose 181 H 02/07/25 06:10: WBC 5.3, RBC 3.81 L, Hgb 10.4 L, Hct 33.0 L, MCV 86.6, MCH 27.3, MCHC 31.5 L, RDW Std Deviation 47.6 H, RDW Coeff of Spencer 15.0 H, Plt Count 216, MPV 9.6, Immature Gran % (Auto) 0.600, Neut % (Auto) 53.2, Lymph % (Auto) 35.5, [place] % (Auto) 8.5, Eos % (Auto) 1.3, Baso % (Auto) 0.9, Absolute Neuts (auto) 2.8, Absolute Lymphs (auto) 1.88, Nucleated RBC % 0, Sodium 139, Potassium 4.5, Chloride 104, Carbon Dioxide 24.8, Anion Gap 10, BUN 23 H, Creatinine 0.92, Estim Creat Clear Calc 77.68, Est GFR (MDRD) Non-Af 74, BUN/Creatinine Ratio 24.5 H, Glucose 179 H, Calcium 8.6 02/07/25 06:45: POC Glucose 176 H 02/07/25 11:47: POC Glucose 160 H Physical Exam Const alert, oriented x3, no apparent distress and average body habitus General Appearance: cooperative and comfortable HEENT normocephalic, head/scalp atraumatic, hearing grossly normal bilaterally, nasal mucous membranes and turbinates normal, moist oral mucous membranes and oropharynx normal Eyes PERRL, EOMs intact bilaterally and conjunctivae normal Neck full ROM and supple Lymph Lymphatic: no lymphedema noted Chest inspection of chest normal Resp normal respiratory effort, normal air movement, no retractions and no use of accessory muscles Cardio regular rate, regular rhythm, S1 normal heart sound, S2 normal heart sound and no murmurs GI normal to inspection, nondistended, normoactive bowel sounds, soft to palpation, non-tender and non-distended Back/Spine normal ROM Extremity normal to inspection, normal capillary refill, no clubbing, cyanosis or edema, no calf tenderness and no pedal edema General Extremity: no tenderness to palpation of joints or extremities Skin no rashes or lesions noted General Skin Exam: no breakdown Neuro oriented x3, CN's II-XII intact bilaterally, moves all extremities, no focal motor deficits and no sensory deficits noted Neuro Narrative: M Sensorium / Orientation: awake and alert Speech: speech normal Motor Exam: general weakness Psych mental status grossly normal, thought process normal, cooperative and affect normal Appearance: appropriate Assessment & Plan Assessment/Plan (1) Severe pain: (2) Fracture of pubic ramus: QUALIFIERS: Encounter type: initial encounter Fracture type: c losed Laterality: right Qualified Code(s): S32.591A - Other specified fracture of right pubis, initial encounter for closed fracture PLAN: Plan #Debililty and weakness due to acute nondisplaced right inferior and superior pubic process fracture * admitted with a compliant of right hip pain and inability to ambulate. Denied any history of mechanical fall. * imaging showed the acute nondisplaced fracture of right inferior and superior pubic processes along with osteopenia. * on PO tylenol, PO oxycodone prn for pain. * fall precautions. * #Type 2 diabetes mellitus with diabetic neuropathy and gastroparesis * A1C was 13.2 on admission * on lantus 20 units bid. * ISS. Accuchecks ACHS. * #History of nonobstructive CAD * on aspirin, high intensity statin and plavix. On Coreg. * #HYperkalemia:resolved.. Continue holding spironolactone. #HFrEF: * not in exacerbation. Has known EF of 30% on 09/01/2024, improved from previous EF of 15%. * on lasix, entresto, spironolactone and midodrine. * spironolactone held due to hyperkalemia. * * #Hypertension: on carvedilol. Spironolactone on hold due to hyperkalemia. Also on entresto #History of PAD s/p stents: on aspirin, plavix and statin. #Nicotine dependence: counseled to quit. Nicotine patch prn #GERD: on PPI #Depression: on escitalopram. #History of compression fracture of L3 and L5: PT/OT On board. Fall precautions. DVT prophylaxis: lovenox Disposition: still awaiting placement, pending precert. Charges/Coding Visit Charges Inpatient E&M: 53655 Subs Hosp L2
[2025-02-07 15:42] VITALS: BP 123/68; PULSE 87; RESP 16; TEMP 36.8; O2SAT 98
[2025-02-07 22:00] VITALS: BP 131/66; PULSE 92; RESP 16; TEMP 37; O2SAT 95; O2SAT 96
[2025-02-07] MEDS: Senna/Docusate Sodium 1 Tablet 2 TABLET PO (22:42)
[2025-02-08 04:00] VITALS: BP 126/71; PULSE 86; RESP 16; TEMP 36.9; O2SAT 94
[2025-02-08 06:00] VITALS: BMI 29.5
[2025-02-08 07:38] LABS: Hematocrit 33.3 % (37-47); Hemoglobin 10.6 g/dL (12.0-15.0); Immature Granulocytes Count 0.040 X10^3/uL (0.0-0.0); Mean Corp Hgb Conc 31.8 g/dL (32-36); Mean Corpuscular Volume 86.5 fL (81-99); Mean Platelet Vol. 9.6 fl (6.2-12.0); NRBC Flagged by Analyzer 0 % (0-5); Platelet Count 211 K/mm3 (150-450); RBC Distribution Width CV 15.0 % (11.6-14.6); RBC Distribution Width SD 47.4 fl (35.1-43.9); Red Blood Count 3.85 M/mm3 (4.2-5.4); White Blood Count 5.7 K/mm3 (4.4-11.0)
[2025-02-08 07:56] LABS: Anion Gap 9 (5-15); BUN 27 mg/dL (4-19); BUN/Creat Ratio 38.6 RATIO (10-20); Calcium,Total 9.0 mg/dL (7.6-11.0); Carbon Dioxide 24.7 mmol/L (21.0-32.0); Chloride 105 mmol/L (98-108); Estimated Creatinine Clearance 101.04 ml/min (50-250); Glucose 102 mg/dL (70-99); Potassium 4.3 mmol/L (3.3-5.1)
[2025-02-08 07:59] VITALS: BP 132/78; PULSE 84; RESP 16; TEMP 36.6; O2SAT 99
[2025-02-08] MEDS: Senna/Docusate Sodium 1 Tablet 2 TABLET PO ×2 (08:31→22:12)
[2025-02-08] MEDS: SACUBITRIL/VALSARTAN 24/26 MG TABLET 1 EACH PO ×2 (08:32→22:14)
[2025-02-08] MEDS: Lidocaine 5% Patch 1 PATCH TOPICAL (08:33)
[2025-02-08] MEDS: Nicotine (PBKC) 14 MG Patch TD (08:33)
[2025-02-08] MEDS: Polyethylene Glycol 3350 17 GM PACKET PO (08:37)
--- NOTE | 2025-02-08 13:22 | PN_ITS ---
Subjective Subjective Patient seen and examined with her nurse by her bedside. She complained of abdominal pain due to constipation, and also of a fungal rash beneath her breasts. She is still awaiting placement. Review of systems is otherwise negative. Objective Data Objective Data Vital Signs: Vital Signs Temp Pulse Resp BP Pulse Ox O2 Del Method O2 Flow Rate 97.9 F 84 16 132/78 H 99 Room Air 2 02/08/25 07:59 02/08/25 07:59 02/08/25 07:59 02/08/25 07:59 02/08/25 07:59 02/08/25 07:59 02/05/25 02:09 Oxygen Flow Rate (L/min) 2 Oxygen Delivery Method Room Air Weight: 183 lb 6.793 oz Body Mass Index (BMI) 29.5 Intake & Output: Intake and Output for Last 24 Hours 02/06/25 02/07/25 02/08/25 23:59 23:59 23:59 Intake Total 450 / 450 Output Total 2049 / 2049 700 / 700 Balance -2049 / -2049 -250 / -250 Lab / Micro Data 02/08/25 06:28 02/08/25 06:28 Labs: Laboratory Results - last 24 hr 02/07/25 16:01: POC Glucose 99 02/07/25 22:48: POC Glucose 122 H 02/08/25 06:28: WBC 5.7, RBC 3.85 L, Hgb 10.6 L, Hct 33.3 L, MCV 86.5, MCH 27.5, MCHC 31.8 L, RDW Std Deviation 47.4 H, RDW Coeff of Spencer 15.0 H, Plt Count 211, MPV 9.6, Immature Gran % (Auto) 0.700, Neut % (Auto) 59.9, Lymph % (Auto) 28.0, [place] % (Auto) 9.3, Eos % (Auto) 1.2, Baso % (Auto) 0.9, Absolute Neuts (auto) 3.4, Absolute Lymphs (auto) 1.60, Nucleated RBC % 0, Sodium 139, Potassium 4.3, Chloride 105, Carbon Dioxide 24.7, Anion Gap 9, BUN 27 H, Creatinine 0.70, Estim Creat Clear Calc 101.04, Est GFR (MDRD) Non-Af 103, BUN/Creatinine Ratio 38.6 H, Glucose 102 H, Calcium 9.0 02/08/25 06:31: POC Glucose 107 H 02/08/25 11:38: POC Glucose 151 H Physical Exam Const alert, oriented x3 and no apparent distress General Appearance: cooperative and comfortable HEENT normocephalic, head/scalp atraumatic, hearing grossly normal bilaterally, moist oral mucous membranes and oropharynx normal Eyes EOMs intact bilaterally and conjunctivae normal Neck full ROM and supple Lymph Lymphatic: no lymphedema noted Chest inspection of chest normal Resp normal respiratory effort, normal air movement, no use of accessory muscles and clear to auscultation bilaterally Cardio regular rate, regular rhythm, S1 normal heart sound, S2 normal heart sound and no murmurs GI normal to inspection, nondistended, normoactive bowel sounds, soft to palpation, non-tender and non-distended Back/Spine normal ROM and normal to inspection Extremity normal to inspection, normal capillary refill, no clubbing, cyanosis or edema, no calf tenderness and no pedal edema General Extremity: no tenderness to palpation of joints or extremities Skin Skin Narrative: Inframammary fungal rash General Skin Exam: no breakdown Neuro oriented x3, CN's II-XII intact bilaterally, moves all extremities, no focal motor deficits and no sensory deficits noted Sensorium / Orientation: awake and alert Motor Exam: general weakness Psych mental status grossly normal, thought process normal, cooperative and affect normal Appearance: appropriate Assessment & Plan Assessment/Plan (1) Severe pain: (2) Fracture of pubic ramus: QUALIFIERS: Encounter type: initial encounter Fracture type: c losed Laterality: right Qualified Code(s): S32.591A - Other specified fracture of right pubis, initial encounter for closed fracture PLAN: Plan #Debililty and weakness due to acute nondisplaced right inferior and superior pubic process fracture * admitted with a compliant of right hip pain and inability to ambulate. Denied any history of mechanical fall. * imaging showed the acute nondisplaced fracture of right inferior and superior pubic processes along with osteopenia. * on PO tylenol, PO oxycodone prn for pain. * fall precautions. * #Type 2 diabetes mellitus with diabetic neuropathy and gastroparesis * A1C was 13.2 on admission * on lantus 20 units bid. * ISS. Accuchecks ACHS. * #History of nonobstructive CAD * on aspirin, high intensity statin and plavix. On Coreg. * #Fungal rash * Has inframammary fungal rash. On nystatin powder * #HYperkalemia:resolved.. Continue holding spironolactone. #HFrEF: * not in exacerbation. Has known EF of 30% on 09/01/2024, improved from previous EF of 15%. * on lasix, entresto, spironolactone and midodrine. * spironolactone held due to hyperkalemia. * * #Hypertension: on carvedilol. Spironolactone on hold due to hyperkalemia. Also on entresto #History of PAD s/p stents: on aspirin, plavix and statin. #Nicotine dependence: counseled to quit. Nicotine patch prn #GERD: on PPI #Depression: on escitalopram. #History of compression fracture of L3 and L5: PT/OT On board. Fall precautions. DVT prophylaxis: lovenox Disposition: still awaiting placement, pending precert. Charges/Coding Visit Charges Inpatient E&M: 25708 Subs Hosp L2
[2025-02-08 14:13] VITALS: BP 122/84; PULSE 93; RESP 16; TEMP 36.8; O2SAT 97
[2025-02-08] MEDS: Insulin Glargine-YFGN 100 UNIT/ML Pen 20 UNIT SC (22:21)
[2025-02-08 23:00] VITALS: RESP 16; O2SAT 95
[2025-02-09 04:00] VITALS: BP 136/81; PULSE 82; RESP 16; TEMP 36.5; O2SAT 98
[2025-02-09 05:24] VITALS: BMI 29.5
[2025-02-09 06:35] LABS: Hematocrit 34.4 % (37-47); Hemoglobin 10.8 g/dL (12.0-15.0); Immature Granulocytes Count 0.040 X10^3/uL (0.0-0.0); Mean Corp Hgb Conc 31.4 g/dL (32-36); Mean Corpuscular Volume 86.2 fL (81-99); Mean Platelet Vol. 9.3 fl (6.2-12.0); NRBC Flagged by Analyzer 0 % (0-5); Platelet Count 221 K/mm3 (150-450); RBC Distribution Width CV 15.0 % (11.6-14.6); RBC Distribution Width SD 47.5 fl (35.1-43.9); Red Blood Count 3.99 M/mm3 (4.2-5.4); White Blood Count 6.0 K/mm3 (4.4-11.0)
[2025-02-09 07:30] LABS: Anion Gap 9 (5-15); BUN 23 mg/dL (4-19); BUN/Creat Ratio 33.2 RATIO (10-20); Calcium,Total 9.0 mg/dL (7.6-11.0); Carbon Dioxide 26.5 mmol/L (21.0-32.0); Chloride 104 mmol/L (98-108); Estimated Creatinine Clearance 101.09 ml/min (50-250); Glucose 113 mg/dL (70-99); Potassium 4.4 mmol/L (3.3-5.1)
[2025-02-09 08:52] VITALS: BP 125/77; PULSE 81; RESP 16; TEMP 36.3; O2SAT 99
[2025-02-09] MEDS: SACUBITRIL/VALSARTAN 24/26 MG TABLET 1 EACH PO ×2 (08:54→22:33)
[2025-02-09] MEDS: Lidocaine 5% Patch 1 PATCH TOPICAL (08:55)
[2025-02-09] MEDS: Nicotine (PBKC) 14 MG Patch TD (08:56)
[2025-02-09] MEDS: Senna/Docusate Sodium 1 Tablet 2 TABLET PO ×2 (08:57→22:31)
--- NOTE | 2025-02-09 09:04 | PN.HOSP_ITS ---
Reason for Visit Chief Complaint: Severe Right Hip Pain and Inability to Ambulate. Subjective Subjective Upset that some physician told her that if her blood sugar stayed less than 180 that she could have cokes. Says she cannot tolerate diet Coke, Coke Zero and Pepsi-Cola equivalents. She does have a regular Pepsi at her bedside table which she said that she has been drinking very slowly over the past few days. Objective Data Objective Data Vital Signs: Vital Signs Temp Pulse Resp BP Pulse Ox O2 Del Method O2 Flow Rate 36.3 C L 81 16 125/77 H 99 Room Air 2 02/09/25 08:52 02/09/25 08:52 02/09/25 08:52 02/09/25 08:52 02/09/25 08:52 02/09/25 08:52 02/05/25 02:09 Oxygen Flow Rate (L/min) 2 Oxygen Delivery Method Room Air Weight: 83.3 kg Body Mass Index (BMI) 29.5 Intake & Output: Intake and Output for Last 24 Hours 02/07/25 02/08/25 02/09/25 23:59 23:59 23:59 Intake Total 450 / 450 Output Total 700 / 700 800 / 800 Balance -250 / -250 -800 / -800 Lab / Micro Data 02/09/25 06:02 02/09/25 06:02 Labs: Laboratory Results - last 24 hr 02/08/25 11:38: POC Glucose 151 H 02/08/25 16:55: POC Glucose 153 H 02/08/25 22:21: POC Glucose 172 H 02/09/25 05:42: POC Glucose 102 02/09/25 06:02: WBC 6.0, RBC 3.99 L, Hgb 10.8 L, Hct 34.4 L, MCV 86.2, MCH 27.1, MCHC 31.4 L, RDW Std Deviation 47.5 H, RDW Coeff of Spencer 15.0 H, Plt Count 221, MPV 9.3, Immature Gran % (Auto) 0.700, Neut % (Auto) 58.7, Lymph % (Auto) 30.8, [place] % (Auto) 7.7, Eos % (Auto) 1.3, Baso % (Auto) 0.8, Absolute Neuts (auto) 3.5, Absolute Lymphs (auto) 1.83, Nucleated RBC % 0, Sodium 139, Potassium 4.4, Chloride 104, Carbon Dioxide 26.5, Anion Gap 9, BUN 23 H, Creatinine 0.70, Estim Creat Clear Calc 101.09, Est GFR (MDRD) Non-Af 103, BUN/Creatinine Ratio 33.2 H, Glucose 113 H, Calcium 9.0 Physical Exam Const alert and oriented x3; Negative for healthy appearing General Appearance: cooperative and comfortable HEENT normocephalic and head/scalp atraumatic Resp normal respiratory effort, no retractions and no use of accessory muscles Neuro oriented x3 and moves all extremities Neuro Narrative: M Sensorium / Orientation: awake and alert Speech: speech normal Psych Psych Narrative: Began yelling Assessment & Plan Assessment/Plan (1) Severe pain: (2) Fracture of pubic ramus: QUALIFIERS: Encounter type: initial encounter Fracture type: c losed Laterality: right Qualified Code(s): S32.591A - Other specified fracture of right pubis, initial encounter for closed fracture PLAN: Plan Debililty and weakness * due to acute nondisplaced right inferior and superior pubic process fracture * PT OT evaluation and treat. * Anticipated placement, currently waiting on insurance authorization. Pelvic fracture * Atraumatic. X-ray shows acute nondisplaced fracture of the right inferior and superior pubic processes. * Has history of left hip fracture. * Check 25-hydroxy 13. Will start ergocalciferol. Chronic medical conditions: * Type 2 diabetes mellitus with diabetic neuropathy and gastroparesis: A1C was 13.2 on admission. on lantus 20 units bid. ISS. Accuchecks ACHS. Fair control. * History of nonobstructive CAD: on aspirin, high intensity statin and plavix. On Coreg. * Fungal rash: Has inframammary fungal rash. On nystatin powder * HFrEF: not in exacerbation. Has known EF of 30% on 09/01/2024, improved from previous EF of 15%. on lasix, entresto, spironolactone and midodrine.spironolactone held due to hyperkalemia. * Hypertension: on carvedilol. Spironolactone on hold due to hyperkalemia. Also on entresto * History of PAD s/p stents: on aspirin, plavix and statin. * Nicotine dependence: counseled to quit. Nicotine patch prn * GERD: on PPI * Depression: on escitalopram. * History of compression fracture of L3 and L5: PT/OT On board. Fall precautions. DVT prophylaxis: lovenox Disposition: still awaiting placement, pending precert. Had long discussion with the patient as she was very upset the fact that she was not getting regular Coke while she was here. I reviewed through [employer] her A1c being 13.2. She initially said that she did not know what that meant but I told started told her what a normal number was and then she said it has been higher. Patient eventually got to the point where she was actually yelling at me despite calm measured communication on my behalf. I told her that I will come back and talk with her further later on the day once she started yelling at me. Charges/Coding Visit Charges Inpatient E&M: 52017 Subs Hosp L2
--- NOTE | 2025-02-09 10:37 | CASEMGMT ---
Social Work- SW checked in with [facility] on precert status. No new information available at this time; [facility] reports they will reach out on determination. SW available to follow. SANDRA Duncan
[2025-02-09] MEDS: Insulin Glargine-YFGN 100 UNIT/ML Pen 20 UNIT SC ×2 (11:03→22:33)
[2025-02-09 11:39] LABS: Vitamin D,25 Hydroxy 13.2 ng/mL (30-100)
[2025-02-09 13:36] VITALS: BP 126/72; PULSE 83; RESP 15; TEMP 36.5; O2SAT 97
[2025-02-09] MEDS: 0.9% Saline Lock 10 ML Syringe IV (13:39)
--- NOTE | 2025-02-09 15:54 | CASEMGMT ---
SNF Prior Authorization Follow-up: Call made to [facility]'s admission coordinator Blake who states he has called [facility] 7 times today and [facility] has also been calling [facility] to check on the status of the authorization. Blake states he left a voicemail on a paper testing supervisor's phone requesting assistance without a return call being received. [facility] Rev Business Solution Analyst has e-mailed Tammy Marinelli and Shaun Kincaid with [facility] on this date requesting assistance with no response received at this time. Will continue to follow-up with [facility]ACBOS on prior auth determination. Adam Arroyo, RN ACM Director of Care Management
--- NOTE | 2025-02-09 15:56 | CASEMGMT ---
Social Work- SW collaborated with [facility] admissions who reports that they are calling [place] every hour on the hour. SW updated hospitalist. SW collaborated with case change management facilitator on discharge planing. SW met with pt to provide updates. Pt reports that she is having issues with her son and daughter and reports that her son has been calling pt berating her. SW and pt discussed situation, coping skills, and self-care techniques. Pt reports feeling better after talking with SW. SW remains available to follow. Plan: [facility]; pend precert SANDRA Duncan
[2025-02-09 17:44] VITALS: BP 131/75; PULSE 85; RESP 14; TEMP 36.4; O2SAT 96
[2025-02-09 22:57] VITALS: BP 146/84; PULSE 89; RESP 16; TEMP 36.6; O2SAT 97
[2025-02-10 04:28] VITALS: BP 104/64; PULSE 82; RESP 16; TEMP 36.5; O2SAT 100
[2025-02-10 04:49] LABS: Hematocrit 30.9 % (37-47); Hemoglobin 10.0 g/dL (12.0-15.0); Immature Granulocytes Count 0.030 X10^3/uL (0.0-0.0); Mean Corp Hgb Conc 32.4 g/dL (32-36); Mean Corpuscular Volume 84.9 fL (81-99); Mean Platelet Vol. 9.4 fl (6.2-12.0); NRBC Flagged by Analyzer 0 % (0-5); Platelet Count 220 K/mm3 (150-450); RBC Distribution Width CV 14.9 % (11.6-14.6); RBC Distribution Width SD 46.4 fl (35.1-43.9); Red Blood Count 3.64 M/mm3 (4.2-5.4); White Blood Count 6.7 K/mm3 (4.4-11.0)
[2025-02-10 05:13] LABS: Anion Gap 10 (5-15); BUN 25 mg/dL (4-19); BUN/Creat Ratio 32.8 RATIO (10-20); Calcium,Total 8.7 mg/dL (7.6-11.0); Carbon Dioxide 23.4 mmol/L (21.0-32.0); Chloride 104 mmol/L (98-108); Estimated Creatinine Clearance 93.11 ml/min (50-250); Glucose 157 mg/dL (70-99); Potassium 4.3 mmol/L (3.3-5.1)
[2025-02-10 06:00] VITALS: BMI 29.9
[2025-02-10 07:56] VITALS: BP 121/72; PULSE 80; RESP 14; TEMP 36.3; O2SAT 96
[2025-02-10] MEDS: Senna/Docusate Sodium 1 Tablet 2 TABLET PO (08:02)
[2025-02-10] MEDS: SACUBITRIL/VALSARTAN 24/26 MG TABLET 1 EACH PO ×2 (08:02→22:30)
[2025-02-10] MEDS: Insulin Glargine-YFGN 100 UNIT/ML Pen 20 UNIT SC ×2 (08:03→22:30)
[2025-02-10] MEDS: Nicotine (PBKC) 14 MG Patch TD (08:03)
[2025-02-10] MEDS: Lidocaine 5% Patch 1 PATCH TOPICAL (08:03)
[2025-02-10] MEDS: Polyethylene Glycol 3350 17 GM PACKET PO (08:11)
--- NOTE | 2025-02-10 09:59 | PN.HOSP_ITS ---
Reason for Visit Chief Complaint: Severe Right Hip Pain and Inability to Ambulate. Subjective Subjective Was having back pain, to which was provided oxycodone by nursing. Complaining of headache. Objective Data Objective Data Vital Signs: Vital Signs Temp Pulse Resp BP Pulse Ox O2 Del Method O2 Flow Rate 36.3 C L 80 14 121/72 H 96 Room Air 2 02/10/25 07:56 02/10/25 07:56 02/10/25 07:56 02/10/25 07:56 02/10/25 07:56 02/10/25 07:56 02/05/25 02:09 Oxygen Flow Rate (L/min) 2 Oxygen Delivery Method Room Air Weight: 84.6 kg Body Mass Index (BMI) 29.9 Intake & Output: Intake and Output for Last 24 Hours 02/08/25 02/09/25 02/10/25 23:59 23:59 23:59 Output Total 800 / 800 550 / 550 Balance -800 / -800 -550 / -550 Lab / Micro Data 02/10/25 04:17 02/10/25 04:17 Labs: Laboratory Results - last 24 hr 02/09/25 06:02: Vitamin D 25-Hydroxy 13.2 L 02/09/25 11:01: POC Glucose 218 H 02/09/25 16:50: POC Glucose 103 02/09/25 22:44: POC Glucose 168 H 02/10/25 04:17: WBC 6.7, RBC 3.64 L, Hgb 10.0 L, Hct 30.9 L, MCV 84.9, MCH 27.5, MCHC 32.4, RDW Std Deviation 46.4 H, RDW Coeff of Spencer 14.9 H, Plt Count 220, MPV 9.4, Immature Gran % (Auto) 0.500, Neut % (Auto) 64.4, Lymph % (Auto) 26.3, [place] % (Auto) 7.2, Eos % (Auto) 1.1, Baso % (Auto) 0.5, Absolute Neuts (auto) 4.3, Absolute Lymphs (auto) 1.75, Nucleated RBC % 0, Sodium 138, Potassium 4.3, Chloride 104, Carbon Dioxide 23.4, Anion Gap 10, BUN 25 H, Creatinine 0.76, Estim Creat Clear Calc 93.11, Est GFR (MDRD) Non-Af 93, BUN/Creatinine Ratio 32.8 H, Glucose 157 H, Calcium 8.7 02/10/25 06:18: POC Glucose 135 H Physical Exam Const alert and no apparent distress Constitutional Narrative: sitting up in bed eating breakfast. HEENT head/scalp atraumatic and moist oral mucous membranes Neck no lymphadenopathy and supple Resp normal respiratory effort and no retractions Assessment & Plan Assessment/Plan (1) Severe pain: (2) Fracture of pubic ramus: QUALIFIERS: Encounter type: initial encounter Fracture type: c losed Laterality: right Qualified Code(s): S32.591A - Other specified fracture of right pubis, initial encounter for closed fracture PLAN: Plan Debililty and weakness * due to acute nondisplaced right inferior and superior pubic process fracture * PT OT evaluation and treat. * Anticipated placement, still waiting on insurance authorization. Case has been escalated given the protracted approval process. Pelvic fracture * Atraumatic. X-ray shows acute nondisplaced fracture of the right inferior and superior pubic processes. * Has history of left hip fracture. * Check 25-hydroxy 13. Continue ergocalciferol. Chronic medical conditions: * Type 2 diabetes mellitus with diabetic neuropathy and gastroparesis: A1C was 13.2 on admission. on lantus 20 units bid. ISS. Accuchecks ACHS. Fair control. * History of nonobstructive CAD: on aspirin, high intensity statin and plavix. On Coreg. * Fungal rash: Has inframammary fungal rash. On nystatin powder * HFrEF: not in exacerbation. Has known EF of 30% on 09/01/2024, improved from previous EF of 15%. on lasix, entresto, spironolactone and midodrine.spironolactone held due to hyperkalemia. * Hypertension: on carvedilol. Spironolactone on hold due to hyperkalemia. Also on entresto * History of PAD s/p stents: on aspirin, plavix and statin. * Nicotine dependence: counseled to quit. Nicotine patch prn * GERD: on PPI * Depression: on escitalopram. * History of compression fracture of L3 and L5: PT/OT On board. Fall precautions. DVT prophylaxis: lovenox Disposition: still awaiting placement, pending precert. Charges/Coding Visit Charges Inpatient E&M: 14058 Subs Hosp L1
--- NOTE | 2025-02-10 13:42 | NURSING ---
PT HAS BEEN AGREEABLE TO GETTING OUT OF BED TODAY AND GOING INTO THE BATHROOM. SHE WAS ALSO REMINDED TO TURN FREQUENTLY D/T RED BOTTOM. PT HAS BEEN UP TO BATHROOM X2 SO FAR TODAY AND ASSURED THIS NURSE THAT SHE IS REPOSITIONING SELF IN BED TO PREVENT BREAKDOWN
[2025-02-10] MEDS: 0.9% Saline Lock 10 ML Syringe IV (15:58)
[2025-02-10 16:00] VITALS: BP 135/75; PULSE 84; RESP 15; TEMP 36.6; O2SAT 96
[2025-02-10 22:50] VITALS: BP 120/64; PULSE 92; RESP 16; TEMP 36.7; O2SAT 97
[2025-02-11 04:42] VITALS: BMI 29.7
[2025-02-11 06:45] VITALS: BP 135/70; PULSE 84; RESP 16; TEMP 36.1; O2SAT 97
[2025-02-11 08:35] VITALS: BP 128/64; PULSE 78; RESP 16; TEMP 36.6; O2SAT 97
--- NOTE | 2025-02-11 09:46 | CASEMGMT ---
Discharge Planning Updates sent to [facility]. Precert remains pending. Arelis Ngo DC Planning Asst.
--- NOTE | 2025-02-11 09:50 | CASEMGMT ---
Social Work- Pt referral status continues to be escalated and collaboration between case fire management technician, [facility], liaisons, and SNF. SW updated pt on precert status and collaboration on referral. Pt pleasant and cooperative; excitedly telling SW about her participation in therapy. SW remains available to follow. SANDRA Duncan
[2025-02-11] MEDS: Lidocaine 5% Patch 1 PATCH TOPICAL (10:31)
[2025-02-11] MEDS: SACUBITRIL/VALSARTAN 24/26 MG TABLET 1 EACH PO (10:31)
[2025-02-11] MEDS: Nicotine (PBKC) 14 MG Patch TD (10:31)
[2025-02-11] MEDS: Ergocalciferol 1.25 MG (50, 000 UNIT) Capsule PO (10:33)
[2025-02-11] MEDS: Insulin Glargine-YFGN 100 UNIT/ML Pen 20 UNIT SC (10:45)
--- NOTE | 2025-02-11 12:14 | PN.HOSP_ITS ---
Reason for Visit Chief Complaint: Severe Right Hip Pain and Inability to Ambulate. Subjective Subjective No new events/complaints. Still waiting on insurance authorization. Objective Data Objective Data Vital Signs: Vital Signs Temp Pulse Resp BP Pulse Ox O2 Del Method O2 Flow Rate 36.1 C L 84 16 135/70 H 97 Room Air 2 02/11/25 06:45 02/11/25 06:45 02/11/25 06:45 02/11/25 06:45 02/11/25 06:45 02/11/25 08:30 02/05/25 02:09 Oxygen Flow Rate (L/min) 2 Oxygen Delivery Method Room Air Weight: 83.9 kg Body Mass Index (BMI) 29.7 Intake & Output: Intake and Output for Last 24 Hours 02/09/25 02/10/25 02/11/25 23:59 23:59 23:59 Output Total 800 / 800 1400 / 1400 450 / 450 Balance -800 / -800 -1400 / -1400 -450 / -450 Lab / Micro Data 02/10/25 04:17 02/10/25 04:17 Labs: Laboratory Results - last 24 hr 02/10/25 12:21: POC Glucose 201 H 02/10/25 15:56: POC Glucose 154 H 02/10/25 22:34: POC Glucose 229 H 02/11/25 06:36: POC Glucose 149 H 02/11/25 10:43: POC Glucose 153 H Physical Exam Const alert and no apparent distress HEENT head/scalp atraumatic and moist oral mucous membranes Resp normal respiratory effort and no retractions Assessment & Plan Assessment/Plan (1) Severe pain: (2) Fracture of pubic ramus: QUALIFIERS: Encounter type: initial encounter Fracture type: c losed Laterality: right Qualified Code(s): S32.591A - Other specified fracture of right pubis, initial encounter for closed fracture PLAN: Plan Debililty and weakness * due to acute nondisplaced right inferior and superior pubic process fracture * PT OT evaluation and treat. * Anticipated placement, still waiting on insurance authorization. Case has been escalated given the protracted approval process. Pelvic fracture * Atraumatic. X-ray shows acute nondisplaced fracture of the right inferior and superior pubic processes. * Has history of left hip fracture. * 25-hydroxy 13. Continue ergocalciferol. Chronic medical conditions: * Type 2 diabetes mellitus with diabetic neuropathy and gastroparesis: A1C was 13.2 on admission. on lantus 20 units bid. ISS. Accuchecks ACHS. Fair control. * History of nonobstructive CAD: on aspirin, high intensity statin and plavix. On Coreg. * Fungal rash: Has inframammary fungal rash. On nystatin powder * HFrEF: not in exacerbation. Has known EF of 30% on 09/01/2024, improved from previous EF of 15%. on lasix, entresto, spironolactone and midodrine.spironolactone held due to hyperkalemia. * Hypertension: on carvedilol. Spironolactone on hold due to hyperkalemia. Also on entresto * History of PAD s/p stents: on aspirin, plavix and statin. * Nicotine dependence: counseled to quit. Nicotine patch prn * GERD: on PPI * Depression: on escitalopram. * History of compression fracture of L3 and L5: PT/OT On board. Fall precautions. DVT prophylaxis: lovenox Disposition: still awaiting placement, pending precert. I have discussed with SW and case has been escalated to case enrollment management coordinator. Charges/Coding Visit Charges Inpatient E&M: 70551 Subs Hosp L1
--- NOTE | 2025-02-11 14:26 | TREXTCAR_ITS ---
Diet Diet Order/Speech Therapy: INPATIENT Hospital Diet / Speech Therapy Order(s) 01/29/25 21:53 Diet: Consistent Carb - Calorie Controlled Food consistency:: Regular Liquid Consistency:: Regular/Thin Dietary Modifications:: Cardiac / Heart Healthy How many daily calories?: 1800 calorie Routine Orders/Code Status Code Status: Full Code DC O2, CPAP, BIPAP needs Home O2 Discharge instructions: No Therapies Weight Bearing: Full weight bearing Physical Therapy: Eval and Treat Occupational Therapy: Eval and Treat Problem/Diagnosis (1) Severe pain: Status: Acute Code(s): R52 - Pain, unspecified (2) Fracture of pubic ramus: Status: Acute Code(s): S32.599A - Other specified fracture of unspecified pubis, initial encounter for closed fracture Plan Debililty and weakness * due to acute nondisplaced right inferior and superior pubic process fracture * PT OT evaluation and treat. * Anticipated placement, still waiting on insurance authorization. Case has been escalated given the protracted approval process. Pelvic fracture * Atraumatic. X-ray shows acute nondisplaced fracture of the right inferior and superior pubic processes. * Has history of left hip fracture. * 25-hydroxy 13. Continue ergocalciferol. Chronic medical conditions: * Type 2 diabetes mellitus with diabetic neuropathy and gastroparesis: A1C was 13.2 on admission. on lantus 20 units bid. ISS. Accuchecks ACHS. Fair control. * History of nonobstructive CAD: on aspirin, high intensity statin and plavix. On Coreg. * Fungal rash: Has inframammary fungal rash. On nystatin powder * HFrEF: not in exacerbation. Has known EF of 30% on 09/01/2024, improved from previous EF of 15%. on lasix, entresto, spironolactone and midodrine.spironolactone held due to hyperkalemia. * Hypertension: on carvedilol. Spironolactone on hold due to hyperkalemia. Also on entresto * History of PAD s/p stents: on aspirin, plavix and statin. * Nicotine dependence: counseled to quit. Nicotine patch prn * GERD: on PPI * Depression: on escitalopram. * History of compression fracture of L3 and L5: PT/OT On board. Fall precautions. DVT prophylaxis: lovenox Disposition: still awaiting placement, pending precert. I have discussed with SW and case has been escalated to case knowledge management consultant. Allergies/Procedures Done in Hospital Allergies latex Allergy (Verified 01/29/25 15:41) Hives Type of Care/Length of Stay Estimated LOS: Convalescent Care Less Than 30 days Type of Care Needed: Skilled Rehab Potential: Fair Prognosis: Good Additional Orders/Day of Discharge Day of Discharge: 02/11/25 Dietary and Speech Recommendations Dietitian Recommendations/Changes: Will continue 1800 trevon Consistent CHO/ Cardiac diet as ordered Will discontinue glucerna shake tid w/ medpass as not indicated at this time. Please consult again if pt willing to have diet education while at [facility] Discharge Plan Admission Admit Date/Time: 01/31/25 13:49 Primary Reason for Your Visit: pelvic fractures Attending Provider: Riccardo Shaikh Primary Care Provider: Zohreh Pratt [facility] Consulting Providers: Morro Yao; Nicole Trujillo; Jonas Justin; Talisha Boykin Discharge Orders/Prescriptions Prescriptions: New nystatin 100,000 unit/gram Powder 1 applic topical TID Qty: 0 0RF Protocol: *Topical Application Instructions APPLICATION INSTRUCTIONS: UNDER alok BREAST insulin lispro [Humalog KwikPen Insulin] 100 unit/mL Insulin Pen See Protocol subcut ACHS Qty: 0 0RF Protocol: 5. Sliding Scale Insulin High Dosing Condition: 150-209 mg/dl = 3 units Condition: 210-259 mg/dl = 6 units Condition: 260-324 mg/dl = 9 units Condition: 325-374 mg/dl = 12 units Condition: 375-409 mg/dl = 14 units Condition: 410-449 mg/dl = 16 units Condition: Greater than 449 call physician Protocol Text: Suggested for: - Patients on Total Daily Insulin Dose of 81-120 units - Very insulin resistant patients HIGH DOSING ALGORITHM insulin glargine-yfgn 100 unit/mL (3 mL) Insulin Pen 20 unit subcut BID Qty: 0 0RF Continued pantoprazole 40 mg tablet,delayed release (DR/EC) 40 mg PO DAILY aspirin 81 mg Capsule 81 mg PO DAILY clopidogrel 75 mg Tablet 75 mg PO DAILY Qty: 30 0RF Patient Comments: patient stated pretty sure I still take that sacubitril-valsartan [Entresto] 24-26 mg Tablet 1 tab PO BID 30 Days Qty: 60 0RF atorvastatin 80 mg tablet 80 mg PO QHS gabapentin 300 mg Capsule 300 mg PO TID tizanidine 4 mg tablet 4 mg PO 3XD midodrine 2.5 mg tablet 2.5 mg PO DAILY furosemide 20 mg tablet 20 mg PO DAILY escitalopram oxalate 20 mg tablet 20 mg PO DAILY sennosides-docusate sodium [Stimulant Laxative Plus] 8.6-50 mg Tablet 2 tab PO BID PRN (Reason: constipation) polyethylene glycol 3350 [Miralax] 17 gram/dose powder 17 g PO BID PRN (Reason: constipation) acetaminophen 500 mg Tablet 1,000 mg PO Q8 Qty: 0 0RF sennosides-docusate sodium [Stimulant Laxative Plus] 8.6-50 mg Tablet 2 tab PO BID Qty: 60 0RF lidocaine 5 % Adhesive Patch,Medicated 1 patch topical DAILY Qty: 30 0RF Protocol: *Topical Application Instructions APPLICATION INSTRUCTIONS: to lower back ondansetron 4 mg tablet,disintegrating 4 mg PO Q6H PRN (Reason: nausea and vomiting) Qty: 30 0RF metoclopramide HCl [Reglan] 10 mg tablet 10 mg PO Q6H PRN (Reason: nausea and vomiting) 5 Days Qty: 20 0RF cholecalciferol (vitamin D3) 1,250 mcg (50,000 unit) tablet 1,250 mcg PO WE DIC 2%/RINKU 6%/LIDOC 2% IN saltsable cream 1 - 2 pump subdermal Q6H PRN (Reason: FOR FEET) spironolactone 25 mg tablet 25 mg PO DAILY 30 Days Qty: 0 0RF ergocalciferol (vitamin D2) [Vitamin D2] 1,250 mcg (50,000 unit) Capsule 1,250 mcg PO We@1000 Qty: 0 0RF carvedilol 3.125 mg tablet 6.25 mg PO BID 30 Days Qty: 0 0RF Rx Instructions: Hold for heart less than 50 or systolic blood pressure less than 100 mmHg. ondansetron 4 mg tablet,disintegrating 4 mg PO Q8H PRN PRN (Reason: Nausea) Qty: 10 0RF oxycodone 5 mg Tablet 5 mg PO Q4H PRN PRN (Reason: pain 4-10) 3 Days Qty: 12 0RF Discontinued insulin lispro 100 unit/mL insulin pen, half-unit 1 sliding scale dose subcut TIDCM Patient Comments: patient does not know sliding scale ertapenem 1 gram recon soln 1 g IV Q24H 7 Days Qty: 7 0RF Rx Instructions: Dx: emphysematous cystitis. Weekly bmp, LFT, and cbc while on iv abx. Fax to [phone]. acetaminophen 325 mg Tablet 650 mg PO Q4H PRN PRN (Reason: Fever, pain 1-03/13) Qty: 0 0RF metoclopramide HCl [Reglan] 5 mg tablet 5 mg PO TID PRN PRN (Reason: nausea and vomiting) Qty: 14 0RF insulin glargine [Lantus Solostar U-100 Insulin] 100 unit/mL (3 mL) insulin pen 20 unit subcut QPM 30 Days Qty: 0 0RF Rx Instructions: Hold if glucose less than 130 mg/dl (DME) OXYGEN - Supplemental ([facility] INFORMATIONAL USE ONLY) Gas See Rx Instructions .ROUTE Patient Comments: wears 2lpm @HS provided by [facility] Rx Instructions: As directed Referrals / Follow Up: Zohreh Pratt, PROPERTY TECHNICIAN-C [Primary Care Provider] - Within 2 Weeks Disposition Disposition (needs filled in before D/C Order can be placed): [facility] (2) Fracture of pubic ramus Qualifiers: Encounter type: initial encounter Fracture type: closed Laterality: right Qualified Code(s): S32.591A - Other specified fracture of right pubis, initial encounter for closed fracture
[2025-02-11 14:45] VITALS: BP 137/68; PULSE 89; RESP 16; TEMP 36.6; O2SAT 100
[2025-02-11 17:05] VITALS: BP 133/66; PULSE 93; RESP 16; TEMP 36.8; O2SAT 99
--- NOTE | 2025-02-11 17:15 | CASEMGMT ---
Addendum entered by Fallon Lee 02/11/25 17:24: Green sheet, PASRR, transport on chart for nursing to complete final arrangements and notifications. SANDRA Duncan Original Note: Social Work Precert has been obtained.? Physician updated and pt is ready for discharge today.? PASRR form completed in [facility]. SW met with pt and they are agreeable to discharge plan as stated above.? Bedside nurse notified of discharge. Disposition:Divine, skilled level of care SANDRA Duncan
--- NOTE | 2025-02-11 18:00 | DS.PCM_ITS ---
Providers Date of Admission: 01/31/25 Primary Care Physician: Zohreh Pratt [facility], FIRE TECHNOLOGY INSTRUCTOR-C Reason For Visit: RIGHT PUBLIC FRATURES WITH SEVERE PAIN AND Diagnosis Discharge Diagnosis (1) Severe pain: Status: Acute Code(s): R52 - Pain, unspecified (2) Fracture of pubic ramus: Status: Acute Code(s): S32.599A - Other specified fracture of unspecified pubis, initial encounter for closed fracture Qualifiers: Encounter type: initial encounter Fracture type: closed Laterality: r ight Qualified Code(s): S32.591A - Other specified fracture of right pubis, initial encounter for closed fracture Plan Debililty and weakness * due to acute nondisplaced right inferior and superior pubic process fracture * PT OT evaluation and treat. * Anticipated placement, still waiting on insurance authorization. Case has been escalated given the protracted approval process. Pelvic fracture * Atraumatic. X-ray shows acute nondisplaced fracture of the right inferior and superior pubic processes. * Has history of left hip fracture. * 25-hydroxy 13. Continue ergocalciferol. Chronic medical conditions: * Type 2 diabetes mellitus with diabetic neuropathy and gastroparesis: A1C was 13.2 on admission. on lantus 20 units bid. ISS. Accuchecks ACHS. Fair control. * History of nonobstructive CAD: on aspirin, high intensity statin and plavix. On Coreg. * Fungal rash: Has inframammary fungal rash. On nystatin powder * HFrEF: not in exacerbation. Has known EF of 30% on 09/01/2024, improved from previous EF of 15%. on lasix, entresto, spironolactone and midodrine.spironolactone held due to hyperkalemia. * Hypertension: on carvedilol. Spironolactone on hold due to hyperkalemia. Also on entresto * History of PAD s/p stents: on aspirin, plavix and statin. * Nicotine dependence: counseled to quit. Nicotine patch prn * GERD: on PPI * Depression: on escitalopram. * History of compression fracture of L3 and L5: PT/OT On board. Fall precautions. DVT prophylaxis: lovenox Disposition: still awaiting placement, pending precert. I have discussed with KIKE and case has been escalated to case sales management trainee. Medications at Discharge Home Medications aspirin 81 mg capsule 81 mg PO DAILY heart health 08/10/22 clopidogrel 75 mg tablet 75 mg PO DAILY anti platelet #30 tabs 02/03/23 pantoprazole 40 mg tablet,delayed release 40 mg PO DAILY reflux 04/18/23 sacubitril 24 mg-valsartan 26 mg tablet (Entresto) 1 tab PO BID .bp 30 days #60 tabs 05/07/23 atorvastatin 80 mg tablet 80 mg PO QHS cholesterol 12/29/23 gabapentin 300 mg capsule 300 mg PO TID nerve pain 12/29/23 DIC 2%/RINKU 6%/LIDOC 2% IN saltsable 1 - 2 pump subdermal Q6H PRN FOR FEET 02/14/24 cholecalciferol (vitamin D3) 1,250 mcg (50,000 unit) tablet 1,250 mcg PO WE supplement 02/14/24 spironolactone 25 mg tablet 25 mg PO DAILY water pill 30 days #0 tabs 02/17/24 carvedilol 3.125 mg tablet 6.25 mg (2 x 3.125 mg) PO BID blood pressure 30 days #0 tabs 02/19/24 ergocalciferol (vitamin D2) 1,250 mcg (50,000 unit) capsule (Vitamin D2) 1,250 mcg PO We@1000 #0 caps 02/19/24 escitalopram oxalate 20 mg tablet 20 mg PO DAILY depression 06/29/24 furosemide 20 mg tablet 20 mg PO DAILY water pill 06/29/24 midodrine 2.5 mg tablet 2.5 mg PO DAILY blood pressure 06/29/24 polyethylene glycol 3350 17 gram/dose oral powder (Miralax) 17 g PO BID PRN constipation 06/29/24 sennosides 8.6 mg-docusate sodium 50 mg tablet (Stimulant Laxative Plus) 2 tab PO BID PRN constipation 06/29/24 tizanidine 4 mg tablet 4 mg PO 3XD spasm 06/29/24 acetaminophen 500 mg tablet 1,000 mg (2 x 500 mg) PO Q8 #0 tabs 09/02/24 ondansetron 4 mg disintegrating tablet 4 mg PO Q8H PRN PRN Nausea #10 tabs 09/05/24 lidocaine 5 % topical patch 1 patch topical DAILY #30 ea 09/16/24 ondansetron 4 mg disintegrating tablet 4 mg PO Q6H PRN nausea and vomiting #30 tabs 09/16/24 sennosides 8.6 mg-docusate sodium 50 mg tablet (Stimulant Laxative Plus) 2 tab PO BID #60 tabs 09/16/24 metoclopramide HCl 10 mg tablet (Reglan) 10 mg PO Q6H PRN nausea and vomiting 5 days #20 tabs 09/21/24 insulin glargine-yfgn 100 unit/mL (3 mL) subcutaneous pen 20 unit (0.2 mL) subcut BID #0 mL 02/11/25 insulin lispro 100 unit/mL subcutaneous pen (Humalog KwikPen (U-100) Insulin) See Protocol subcut ACHS #0 mL 02/11/25 nystatin 100,000 unit/gram topical powder 1 applic topical TID #0 grams 02/11/25 oxycodone 5 mg tablet 5 mg PO Q4H PRN PRN pain 4-10 3 days #12 tabs 02/11/25 Hospital Course Operations None Procedures None Summary of Care Provided Hospital Course: Patient had pain in her hip and was found to have inferior superior right pubic rami fracture. Apparently this was atraumatic. Likely osteoporotic. Patient was weak and unable to go home safely so longterm facility was evaluated. Apparently there was some clerical error, as described to me, and this was not picked up until the following week. So patient had a very lengthy hospitalization due to this error, apparently. Patient was discharged on the in stable condition. Weight / BMI Weight Weight: 83.9 kg Body Mass Index (BMI) 29.7 ABG / Lab / Microbiology Data 02/10/25 04:17 02/10/25 04:17 Laboratory: Laboratory Results - last 24 hr 02/11/25 10:43: POC Glucose 153 H 02/11/25 16:39: POC Glucose 158 H D/C Instructions DC O2, CPAP, BIPAP Needs Home O2 Discharge instructions: No Meaningful Use Info Meaningful Use Meaningful Use Diagnoses (Choose all that apply): None applicable Discharge Plan Admission Admit Date/Time: 01/31/25 13:49 Primary Reason for Your Visit: pelvic fractures Attending Provider: Riccardo Shaikh Primary Care Provider: Zohreh Pratt [facility] Consulting Providers: Morro Yao; Nicole Trujillo; Jonas Justin; Talisha Boykin Discharge Orders/Prescriptions Prescriptions: New nystatin 100,000 unit/gram Powder 1 applic topical TID Qty: 0 0RF Protocol: *Topical Application Instructions APPLICATION INSTRUCTIONS: UNDER alok BREAST insulin lispro [Humalog KwikPen Insulin] 100 unit/mL Insulin Pen See Protocol subcut ACHS Qty: 0 0RF Protocol: 5. Sliding Scale Insulin High Dosing Condition: 150-209 mg/dl = 3 units Condition: 210-259 mg/dl = 6 units Condition: 260-324 mg/dl = 9 units Condition: 325-374 mg/dl = 12 units Condition: 375-409 mg/dl = 14 units Condition: 410-449 mg/dl = 16 units Condition: Greater than 449 call physician Protocol Text: Suggested for: - Patients on Total Daily Insulin Dose of 81-120 units - Very insulin resistant patients HIGH DOSING ALGORITHM insulin glargine-yfgn 100 unit/mL (3 mL) Insulin Pen 20 unit subcut BID Qty: 0 0RF Continued pantoprazole 40 mg tablet,delayed release (DR/EC) 40 mg PO DAILY aspirin 81 mg Capsule 81 mg PO DAILY clopidogrel 75 mg Tablet 75 mg PO DAILY Qty: 30 0RF Patient Comments: patient stated pretty sure I still take that sacubitril-valsartan [Entresto] 24-26 mg Tablet 1 tab PO BID 30 Days Qty: 60 0RF atorvastatin 80 mg tablet 80 mg PO QHS gabapentin 300 mg Capsule 300 mg PO TID tizanidine 4 mg tablet 4 mg PO 3XD midodrine 2.5 mg tablet 2.5 mg PO DAILY furosemide 20 mg tablet 20 mg PO DAILY escitalopram oxalate 20 mg tablet 20 mg PO DAILY sennosides-docusate sodium [Stimulant Laxative Plus] 8.6-50 mg Tablet 2 tab PO BID PRN (Reason: constipation) polyethylene glycol 3350 [Miralax] 17 gram/dose powder 17 g PO BID PRN (Reason: constipation) acetaminophen 500 mg Tablet 1,000 mg PO Q8 Qty: 0 0RF sennosides-docusate sodium [Stimulant Laxative Plus] 8.6-50 mg Tablet 2 tab PO BID Qty: 60 0RF lidocaine 5 % Adhesive Patch,Medicated 1 patch topical DAILY Qty: 30 0RF Protocol: *Topical Application Instructions APPLICATION INSTRUCTIONS: to lower back ondansetron 4 mg tablet,disintegrating 4 mg PO Q6H PRN (Reason: nausea and vomiting) Qty: 30 0RF metoclopramide HCl [Reglan] 10 mg tablet 10 mg PO Q6H PRN (Reason: nausea and vomiting) 5 Days Qty: 20 0RF cholecalciferol (vitamin D3) 1,250 mcg (50,000 unit) tablet 1,250 mcg PO WE DIC 2%/RINKU 6%/LIDOC 2% IN saltsable cream 1 - 2 pump subdermal Q6H PRN (Reason: FOR FEET) spironolactone 25 mg tablet 25 mg PO DAILY 30 Days Qty: 0 0RF ergocalciferol (vitamin D2) [Vitamin D2] 1,250 mcg (50,000 unit) Capsule 1,250 mcg PO We@1000 Qty: 0 0RF carvedilol 3.125 mg tablet 6.25 mg PO BID 30 Days Qty: 0 0RF Rx Instructions: Hold for heart less than 50 or systolic blood pressure less than 100 mmHg. ondansetron 4 mg tablet,disintegrating 4 mg PO Q8H PRN PRN (Reason: Nausea) Qty: 10 0RF oxycodone 5 mg Tablet 5 mg PO Q4H PRN PRN (Reason: pain 4-10) 3 Days Qty: 12 0RF Discontinued insulin lispro 100 unit/mL insulin pen, half-unit 1 sliding scale dose subcut TIDCM Patient Comments: patient does not know sliding scale ertapenem 1 gram recon soln 1 g IV Q24H 7 Days Qty: 7 0RF Rx Instructions: Dx: emphysematous cystitis. Weekly bmp, LFT, and cbc while on iv abx. Fax to [phone]. acetaminophen 325 mg Tablet 650 mg PO Q4H PRN PRN (Reason: Fever, pain 1-10/10) Qty: 0 0RF metoclopramide HCl [Reglan] 5 mg tablet 5 mg PO TID PRN PRN (Reason: nausea and vomiting) Qty: 14 0RF insulin glargine [Lantus Solostar U-100 Insulin] 100 unit/mL (3 mL) insulin pen 20 unit subcut QPM 30 Days Qty: 0 0RF Rx Instructions: Hold if glucose less than 130 mg/dl (DME) OXYGEN - Supplemental ([facility] INFORMATIONAL USE ONLY) Gas See Rx Instructions .ROUTE Patient Comments: wears 2lpm @HS provided by [facility] Rx Instructions: As directed Referrals / Follow Up: Zohreh Pratt, FIRE TECHNOLOGY INSTRUCTOR-C [Primary Care Provider] - Within 2 Weeks Disposition Disposition (needs filled in before D/C Order can be placed): Intermediate Facility Charges/Coding Visit Charges Inpatient E&M: 37444 Disch Hosp
--- NOTE | 2025-02-11 18:55 | NURSING ---
report called to chris jarrett
== END 2025-02-11 18:45 | disposition skilled nursing facility (03) | DRG 341 ==
LOC: ED 16:09 → MS3 20:19
PROVIDERS: Hospitalist; Internal Medicine; Student in an Organized Health Care Education/Training Program; Admitting Provider Internal Medicine; Emergency Provider Emergency Medicine; PCP Nurse Practitioner Family
DX: S32.591A Other specified fracture of right pubis, initial encounter for closed fracture (principal); I95.89 Other hypotension; I11.0 Hypertensive heart disease with heart failure; I50.22 Chronic systolic (congestive) heart failure; E11.43 Type 2 diabetes mellitus with diabetic autonomic (poly)neuropathy; F32.A Depression, unspecified; I34.0 Nonrheumatic mitral (valve) insufficiency; E11.65 Type 2 diabetes mellitus with hyperglycemia; M54.30 Sciatica, unspecified side; K31.84 Gastroparesis; G47.30 Sleep apnea, unspecified; I25.10 Atherosclerotic heart disease of native coronary artery without angina pectoris; F17.210 Nicotine dependence, cigarettes, uncomplicated; K21.00 Gastro-esophageal reflux disease with esophagitis, without bleeding; M16.11 Unilateral primary osteoarthritis, right hip; E11.51 Type 2 diabetes mellitus with diabetic peripheral angiopathy without gangrene; E55.9 Vitamin D deficiency, unspecified; E78.5 Hyperlipidemia, unspecified; Z79.4 Long term (current) use of insulin; I25.5 Ischemic cardiomyopathy; E87.5 Hyperkalemia; K59.09 Other constipation; M62.838 Other muscle spasm; F12.90 Cannabis use, unspecified, uncomplicated; W19.XXXA Unspecified fall, initial encounter; R26.89 Other abnormalities of gait and mobility; Z79.01 Long term (current) use of anticoagulants; Z86.718 Personal history of other venous thrombosis and embolism; E66.3 Overweight; Z68.26 Body mass index [BMI] 26.0-26.9, adult; Z86.711 Personal history of pulmonary embolism; Z79.82 Long term (current) use of aspirin; Z79.02 Long term (current) use of antithrombotics/antiplatelets; M85.80 Other specified disorders of bone density and structure, unspecified site; R21 Rash and other nonspecific skin eruption
CPT/HCPCS: 36415; 73502; 80048; 80053; 80061; 80307; 81001; 82077; 82306; 82607; 82746; 82962; 83036; 83735; 84100; 84443; 85025; 85027; 86140; 94668; 94762; 97110; 97116; 97162; 97166; 97530; 97535; 97802; 99285; A4216

== ENCOUNTER 2025-03-30 10:17 | Inpatient (IN) | payer MEDICAID, SELFPAY ==
[2025-03-30] VITALS (35 sets, daily range): BP systolic 107–159; BP diastolic 67–99; PULSE 94–114; RESP 12–38; TEMP 35.7–37.8; O2SAT 63–100; BMI 33.6; BMI 31.2
--- NOTE | 2025-03-30 10:26 | RAD_ITS ---
PROCEDURE: CHEST 1 VIEW (PORTABLE) 03/30/2025 REASON FOR EXAM: SOB TECHNIQUE: Frontal view of the chest. COMPARISON: Chest x-ray of 08/26/2024. RAD/Chest 1 View (Portable) IMPRESSION: Prominent bilateral airspace disease is seen, predominantly in the mid to lower lung zones. Findings are most concerning for Pulmonary Edema; cannot exclude superimposed p neumonitis. No definite pleural effusion is seen. No pneumothorax is noted. The cardiomediastinal silhouette is stable, without evidence of cardiomegaly. Generalized osteopenia is seen. No interval osseous change is noted. Reading Location: [place] [id number]
--- NOTE | 2025-03-30 10:30 | EX.ED.DYSGE1 ---
HPI History of Present Illness Chief Complaint: Shortness of Breath Narrative Narrative: 54-year-old female history of diabetes, CAD, ischemic cardiomyopathy, hypertension presents emergency department for complaint of shortness of breath. Patient brought in by EMS after patient states that she felt short of breath since last night. EMS states that when they arrived she was satting in the 60s on room air. Patient was placed on nonrebreather. Denying any chills, fever, chest pain, falls. Alert and oriented x 3. PFSH PFSH Medical History L5 vertebral fracture ESBL (extended spectrum beta-lactamase) producing bacteria infection Generalized weakness Candidiasis of breast Colitis Debility PTSD (post-traumatic stress disorder) Closed compression fracture of L3 vertebra Hypokalemia Colitis BiPAP (biphasic positive airway pressure) dependence Coronary artery disease On home oxygen therapy Rheumatoid arthritis Sleep apnea Smoker DVT (deep venous thrombosis) Seizures Amputation toe Psychiatric disorder Ischemic cardiomyopathy Diabetes type 2, uncontrolled Essential hypertension Substance abuse Alcohol abuse Depression Osteoporosis GERD (gastroesophageal reflux disease) Pulmonary embolism Myocardial infarct Pericardial effusion Hypoxemia Acute dyspnea Aftercare following surgery of the circulatory system Hx of fracture of humerus Toe amputee Hyperlipidemia CHF (congestive heart failure) CAD (coronary artery disease), [place] coronary artery Home Medications ?Medication ?Instructions ?Recorded ?Last Taken ?Type aspirin 81 mg capsule 81 mg PO DAILY heart health 08/10/22 09/06/24 History clopidogrel 75 mg tablet 75 mg PO DAILY anti platelet #30 02/03/23 09/06/24 Rx tabs pantoprazole 40 mg tablet,delayed 40 mg PO DAILY reflux 04/18/23 09/06/24 History release sacubitril 24 mg-valsartan 26 mg 1 tab PO BID .bp 30 days #60 tabs 05/07/23 09/06/24 Rx tablet (Entresto) atorvastatin 80 mg tablet 80 mg PO QHS cholesterol 12/29/23 09/06/24 History gabapentin 300 mg capsule 300 mg PO TID nerve pain 12/29/23 09/06/24 History DIC 2%/RINKU 6%/LIDOC 2% IN 1 - 2 pump subdermal Q6H PRN FOR 02/14/24 09/06/24 History saltsable FEET cholecalciferol (vitamin D3) 1,250 1,250 mcg PO WE supplement 02/14/24 09/03/24 History mcg (50,000 unit) tablet spironolactone 25 mg tablet 25 mg PO DAILY water pill 30 days 02/17/24 09/06/24 Rx #0 tabs ergocalciferol (vitamin D2) 1,250 1,250 mcg PO We@1000 #0 caps 02/19/24 09/03/24 Rx mcg (50,000 unit) capsule (Vitamin D2) escitalopram oxalate 20 mg tablet 20 mg PO DAILY depression 06/29/24 09/06/24 History furosemide 20 mg tablet 20 mg PO DAILY water pill 06/29/24 09/06/24 History midodrine 2.5 mg tablet 2.5 mg PO DAILY blood pressure 06/29/24 09/06/24 History polyethylene glycol 3350 17 17 g PO BID PRN constipation 06/29/24 Unknown History gram/dose oral powder (Miralax) sennosides 8.6 mg-docusate sodium 2 tab PO BID PRN constipation 06/29/24 Unknown History 50 mg tablet (Stimulant Laxative Plus) tizanidine 4 mg tablet 4 mg PO 3XD spasm 06/29/24 09/06/24 History acetaminophen 500 mg tablet 1,000 mg (2 x 500 mg) PO Q8 #0 tabs 09/02/24 09/06/24 Rx sennosides 8.6 mg-docusate sodium 2 tab PO BID #60 tabs 09/16/24 Unknown Rx 50 mg tablet (Stimulant Laxative Plus) metoclopramide HCl 10 mg tablet 10 mg PO Q6H PRN nausea and 09/21/24 Unknown Rx (Reglan) vomiting 5 days #20 tabs nystatin 100,000 unit/gram topical 1 applic topical TID #0 grams 02/11/25 Unknown Rx powder oxycodone 5 mg tablet 5 mg PO Q4H PRN PRN pain 4-10 3 02/11/25 Unknown Rx days #12 tabs insulin glargine 100 unit/mL (3 unit subcut DM 03/30/25 Unknown History mL) subcutaneous pen (Lantus Solostar U-100 Insulin) insulin lispro 100 unit/mL 20 unit subcut DAILY DM 03/30/25 Unknown History subcutaneous pen (Humalog KwikPen (U-100) Insulin) insulin lispro 100 unit/mL 27 unit subcut DAILY DM 03/30/25 Unknown History subcutaneous pen (Humalog KwikPen (U-100) Insulin) Allergy/AdvReac Type Severity Reaction Status Date / Time latex Allergy Hives Verified 01/29/25 15:41 Family History Mother Thyroid disorder Diabetes Hypertension Grandmother Diabetes Uncle Diabetes Aunt Diabetes Other Heart disease Surgical History History of cholecystectomy History of appendectomy History of cholecystectomy Social History household members: spouse and children housing: house Smoking Status: Current every day smoker tobacco type: cigarettes alcohol intake: never substance use type: marijuana what type of physical activity do you participate in: none do you feel safe at home: Yes EXAM Physical Exam Narrative Exam Narrative: Acute respiratory distress, cyanosis, lethargy. Alert and oriented x 3 Const Vital Signs: 03/30/25 10:18 03/30/25 10:26 03/30/25 10:28 Temperature 97.7 F L Temperature Source Temporal Pulse Rate 109 H Respiratory Rate 27 H Respiratory Effort Short of Breath Labored Respiratory Pattern Tachypnea Blood Pressure 156/99 H Blood Pressure Mean 118 Pulse Ox 93 Oxygen Delivery Method Room Air Bi-pap Bi-pap Oxygen Flow Rate (L/min) Fraction of Inspired Oxygen (FIO2) 03/30/25 10:30 03/30/25 11:05 03/30/25 11:05 Temperature 97.7 F L Temperature Source Temporal Pulse Rate 110 H 108 H 108 H Respiratory Rate 31 H 35 H 35 H Respiratory Effort Respiratory Pattern Tachypnea Tachypnea Blood Pressure 156/99 H Blood Pressure Mean 118 Pulse Ox 81 97 Oxygen Delivery Method Non-Rebreather Oxygen Flow Rate (L/min) 15 Fraction of Inspired Oxygen (FIO2) 100 03/30/25 11:18 03/30/25 11:27 03/30/25 12:00 Temperature Temperature Source Pulse Rate 104 H 110 H Respiratory Rate 32 H 29 H Respiratory Effort Respiratory Pattern Blood Pressure 149/87 H 143/93 H Blood Pressure Mean 107 109 Pulse Ox 98 94 Oxygen Delivery Method Bi-pap Bi-pap Oxygen Flow Rate (L/min) Fraction of Inspired Oxygen (FIO2) 60 03/30/25 12:00 03/30/25 13:00 03/30/25 13:48 Temperature 96.3 F L 98.2 F 98.7 F Temperature Source Core Core Core Pulse Rate 110 H 110 H 110 H Respiratory Rate 29 H 31 H Respiratory Effort Respiratory Pattern Blood Pressure 143/93 H 159/91 H 141/92 H Blood Pressure Mean 109 113 108 Pulse Ox 93 93 97 Oxygen Delivery Method Bi-pap Bi-pap Bi-pap Oxygen Flow Rate (L/min) Fraction of Inspired Oxygen (FIO2) Neck supple and no JVD Chest Wall inspection of chest normal and palpation of chest normal Resp Effort and Inspection: retractions sternal and subcostal Auscultation: rales, wheezes throughout and diminished lung sounds Cardio regular rate and no murmurs Rate: tachycardic GI Palpation: soft; Negative for tender or guarding Extremity Extremity Narrative: 2+ pitting edema bilateral lower extremities General Extremety ED: Yes edema General Extremity: edema Sepsis Attestation Sepsis Alert: Yes Sepsis Attestation: Agree w/Sepsis Date exam was performed: 03/30/25 Time exam was performed: 10:45 Possible Source of Sepsis: Pulmonary Sepsis Organ Dysfunction Criteria Present: Acute Respiratory Failure (New need for BiPAP/CPAP or MV) Fluid Resuscitation Fluid resuscitation indicated?: Yes Fluid Resuscitation ordered: Lesser volume fluid bolus ordered Amount of fluid ordered: 500 Reason for lesser fluid bolus:: Concern for fluid overload and Heart failure Sepsis Note Date exam was performed: 03/30/25 Sepsis Attestation: Sepsis re-evaluation was performed (no need for additional fluids) MDM MDM MDM Narrative Medical decision making narrative: 54-year-old female history of diabetes, CAD, ischemic cardiomyopathy, hypertension presents emergency department for complaint of shortness of breath. Patient brought in by EMS after patient states that she felt short of breath since last night. EMS states that when they arrived she was satting in the 60s on room air. Patient was placed on nonrebreather. Denying any chills, fever, chest pain, falls. Alert and oriented x 3. On my physical exam patient having retractions with obvious respiratory distress and accessory muscle use. Patient saturating 70% on nonrebreather with cyanotic extremities. Wheezing and coarse breath sounds noted throughout. Patient alert and orient x 3. Tachycardic with no murmurs. Chest x-ray showing some pulmonary edema unsure of any superimposed pneumonia based off of the imaging. Leukocytosis noted patient meeting SIRS criteria and sepsis alert started. Patient started on community-acquired pneumonia antibiotics with Zithromax and Rocephin. Patient given 500 cc IV fluid bolus did not get the full 30 cc/kg fluid due to concern of fluid overload as patient did have significant peripheral edema and chest x-ray findings. CT angiogram showed pulmonary embolus bilaterally no evidence of right heart strain. Heparin started. Patient was placed on BiPAP due to respiratory distress and hypoxia and was complaining of nausea. Given IV Zofran. Spoke to hospitalist, Dr. Chaney who agrees admit the patient to ICU for further workup and admission in the setting of acute hypoxic respiratory distress, pulmonary embolus requiring heparin drip and IV antibiotics. Lab Data Attestation: I reviewed the patient's lab results. Lab results narrative: Lab results showing leukocytosis with left shift, elevated lactic acid with ABG showing respiratory acidosis. Troponin elevated likely secondary to pulmonary edema. Labs: Laboratory Results - last 24 hr 03/30/25 03/30/25 03/30/25 10:53 11:00 11:20 WBC 17.6 H RBC 3.82 L Hgb 10.5 L Hct 32.4 L MCV 84.8 MCH 27.5 MCHC 32.4 RDW Std Deviation 44.3 H RDW Coeff of Spencer 14.2 Plt Count 255 MPV 9.4 Immature Gran % (Auto) 0.500 Neut % (Auto) 90.0 H Lymph % (Auto) 4.7 L Dare % (Auto) 4.5 Eos % (Auto) 0.1 Baso % (Auto) 0.2 Absolute Neuts (auto) 15.8 H Absolute Lymphs (auto) 0.83 Nucleated RBC % 0 PT 14.0 INR 1.1 APTT 27.8 Sodium 136 Potassium 4.0 Chloride 102 Carbon Dioxide 20.0 L Anion Gap 13 BUN 32 H Creatinine 0.78 Estim Creat Clear Calc 96.68 Est GFR (MDRD) Non-Af 90 BUN/Creatinine Ratio 41.4 H Glucose 450 H Lactic Acid 3.6 H* Calcium 9.7 Total Bilirubin 1.75 H AST 37 H ALT 19 Alkaline Phosphatase 130 H Troponin T High Sens 88 H* Troponin T Hi [place] 2 [place] [address] H Total Protein 7.6 Albumin 4.1 Globulin 3.5 Albumin/Globulin Ratio 1.2 Procalcitonin Urine Color Urine Clarity Urine pH Ur Specific [place] Urine Protein Urine Glucose (UA) Urine Ketones Urine Occult Blood Urine Nitrite Urine Bilirubin Urine Urobilinogen Ur Leukocyte Esterase Urine RBC Urine WBC Ur Squamous Epith Cells Urine Bacteria Urine Mucus 03/30/25 03/30/25 11:46 13:21 WBC RBC Hgb Hct MCV MCH MCHC RDW Std Deviation RDW Coeff of Spencer Plt Count MPV Immature Gran % (Auto) Neut % (Auto) Lymph % (Auto) Dare % (Auto) Eos % (Auto) Baso % (Auto) Absolute Neuts (auto) Absolute Lymphs (auto) Nucleated RBC % PT 13.9 INR 1.1 APTT 27.7 Sodium Potassium Chloride Carbon Dioxide Anion Gap BUN Creatinine Estim Creat Clear Calc Est GFR (MDRD) Non-Af BUN/Creatinine Ratio Glucose Lactic Acid Calcium Total Bilirubin AST ALT Alkaline Phosphatase Troponin T High Sens Troponin T Hi Sens 2 Hr 109 H* NT pro BNP II Total Protein Albumin Globulin Albumin/Globulin Ratio Procalcitonin 0.16 H Urine Color Yellow Urine Clarity Sl. Cloudy Urine pH 6.0 Ur Specific [place] 1.020 Urine Protein 500 H Urine Glucose (UA) 1000 H Urine Ketones Negative Urine Occult Blood 150 H Urine Nitrite Negative Urine Bilirubin Negative Urine Urobilinogen Normal Ur Leukocyte Esterase Negative Urine RBC 0-5 SEEN Urine WBC 0 SEEN Ur Squamous Epith Cells 0 SEEN Urine Bacteria 0 SEEN Urine Mucus 0 SEEN ABG Data ABG results: ABG 03/30/25 10:38 Specimen Type ART Sample Site L Radial pH 7.36 Bicarbonate Actual 20.5 L Total CO2 22 Base Excess -5 L O2 Saturation 94 O2 % 100.0 ABG pCO2 36.0 ABG pO2 74 L Wilbert Test Positive O2 Delivery Device BiPAP Vent Mode Not entered Radiography Diagnostic Testing: Clinical Impression(s) from Imaging Studies Chest X-Ray 03/30/25 10:26 IMPRESSION: Prominent bilateral airspace disease is seen, predominantly in the mid to lower lung zones. Findings are most concerning for Pulmonary Edema; cannot exclude superimposed pneumonitis. No definite pleural effusion is seen. No pneumothorax is noted. The cardiomediastinal silhouette is stable, without evidence of cardiomegaly. Generalized osteopenia is seen. No interval osseous change is noted. Reading Location: [facility] Chest CTA 03/30/25 11:55 IMPRESSION: There is an enlarged precarinal lymph node measuring 2.3 x 1.4 cm, image 179/265. There is partly occlusive thrombus visible in the proximal right lower lobe pulmonary arteries, image 129-149/265. There is partly occlusive clot visible to the right upper lobe pulmonary vessels, image 143/265. There is nonocclusive clot visible in the left upper lobe proximal branch vessels, image 161/265. There is diffuse patchy interstitial and alveolar infiltrate with peripheral wedge-shaped consolidation, most severe at the bases. There is a 2.3 cm right pleural effusion. There is a 3.4 cm left pleural effusion. There is a 2 cm right adrenal nodule, Hounsfield units = 43. There is a 1.9 cm left adrenal nodule, Hounsfield units = 28. There is a 2.1 cm cyst at the upper pole of the left kidney. Critical results were discussed with Dr. Thomas by Dr. Gaytan at the time of dictation. Reading Location: [facility] Chest x-ray showing pulmonary edema with likely superimposed pneumonia. CT angiogram showing evidence of pulmonary embolism no evidence of right heart strain with pulmonary infarction EKG Initial EKG: Attestation: I personally reviewed and interpreted this EKG as follows: Comments: EKG independently interpreted by myself showing sinus tachycardia, ventricular rate 108, AL 176, QTc 477. Left axis deviation. Incomplete right bundle branch block noted, unchanged from previous on 09/29/2024. No signs of ST elevation depression or T wave inversions consistent with acute ischemia Management Discussion w/another healthcare provider: Hospitalist Critical Care Time Critical Care Time: Yes Critical care time (excluding procedures): 30-74 minutes, Including time spent: (40), Discussing w/Patient &/or Family/Public Relations Senior Associate, Arranging Admission or Transfer and Performing Direct Patient Care at Bedside Discharge Plan Dx/Rx/DC Orders Clinical Impression: Acute hypoxemic respiratory failure, Pulmonary edema, Bilateral pulmonary embolism, Pulmonary infarction Disposition Disposition: [facility] Discharge Date/Time: 03/30/25 14:55
[2025-03-30] MEDS: 0.9% Normal Saline (500mL Bag) 500 ML 999 ML IV (10:39)
[2025-03-30 10:42] LABS: Allen Test Positive; Base Excess -5 mmol/L (-2 to +2); FI02 100.0; PO2 74 mmHG (75-100); SITE L Radial; SO2 94 % (94-98)
[2025-03-30 11:02] LABS: Hematocrit 32.4 % (37-47); Hemoglobin 10.5 g/dL (12.0-15.0); Immature Granulocytes Count 0.090 X10^3/uL (0.0-0.0); Mean Corp Hgb Conc 32.4 g/dL (32-36); Mean Corpuscular Volume 84.8 fL (81-99); Mean Platelet Vol. 9.4 fl (6.2-12.0); NRBC Flagged by Analyzer 0 % (0-5); Platelet Count 255 K/mm3 (150-450); RBC Distribution Width CV 14.2 % (11.6-14.6); RBC Distribution Width SD 44.3 fl (35.1-43.9); Red Blood Count 3.82 M/mm3 (4.2-5.4); White Blood Count 17.6 K/mm3 (4.4-11.0)
[2025-03-30 11:22] LABS: Prothrombin Time (Protime)PT. 14.0 SECONDS (11.7-14.9)
[2025-03-30 11:23] LABS: Partial Thromboplast Time 27.8 Seconds (24.1-36.2)
[2025-03-30 11:28] LABS: AST(SGOT) 37 U/L (<=31); Alanine Aminotransfer ALT/SGPT 19 U/L (<=34); Albumin, Serum 4.1 g/dL (3.5-5.0); Alkaline Phosphatase 130 U/L (35-104); Anion Gap 13 (5-15); BUN 32 mg/dL (4-19); BUN/Creat Ratio 41.4 RATIO (10-20); Calcium,Total 9.7 mg/dL (7.6-11.0); Carbon Dioxide 20.0 mmol/L (21.0-32.0); Chloride 102 mmol/L (98-108); Estimated Creatinine Clearance 96.68 ml/min (50-250); Globulin 3.5 g/dL (2.2-4.2); Glucose 450 mg/dL (70-99); Potassium 4.0 mmol/L (3.3-5.1)
[2025-03-30 11:54] LABS: Mucous, Urine 0 SEEN /hpf (<or=2+); Squamous Epithelial Cells - UA 0 SEEN /hpf (5-10)
--- NOTE | 2025-03-30 11:55 | CT_ITS ---
PROCEDURE: CTA CHEST W/WO CONTRAST 03/30/2025 REASON FOR EXAM: SHORTNESS OF BREATH, CONCERN PE TECHNIQUE: Procedure Code: [id number] Modality: CT Procedure: CTA CHEST W/WO CONTRAST Multiplanar Sagittal and Coronal images were obtained. CONTRAST: Not reported One or more dose reduction techniques were used (e.g., Automated exposure control, adjustment of the mA and/or kV according to patient size, use of iterative reconstruction technique). RADIATION DOSE SUMMARY: DLP: 554 mGycm COMPARISON: None FINDINGS: Hardware: None Lymph nodes: There is an enlarged precarinal lymph node measuring 2.3 x 1.4 cm, image 179/265. Heart: Atherosclerotic calcifications are noted RV/LV Diameter Ratio: 0.8 Thoracic Aorta: Within normal limits Pulmonary Vessels: Main pulmonary artery Hounsfield units = 279. There is partly occlusive thrombus visible in the proximal right lower lobe pulmonary arteries, image 129-149/265. There is partly occlusive clot visible to the right upper lobe pulmonary vessels, image 143/265. There is nonocclusive clot visible in the left upper lobe proximal branch vessels, image 161/265. Lungs and Airways: There is diffuse patchy interstitial and alveolar infiltrate with peripheral wedge-shaped consolidation, most severe at the bases. Pleura: There is a 2.3 cm right pleural effusion. There is a 3.4 cm left pleural effusion. Upper Abdomen: There is a 2 cm right adrenal nodule, Hounsfield units = 43. There is a 1.9 cm left adrenal nodule, Hounsfield units = 28. There is a 2.1 cm cyst at the upper pole of the left kidney. Bones: CT/CTA Chest W/WO Contrast IMPRESSION: There is an enlarged precarinal lymph node measuring 2.3 x 1.4 cm, image 179/26 5. There is partly occlusive thrombus visible in the proximal right lower lobe pul monary arteries, image 129-149/265. There is partly occlusive clot visible to the right upper lobe pulmonary vessels, image 143/265. There is nonocclusive clot visible in the left upper lobe proximal branch vesse ls, image 161/265. There is diffuse patchy interstitial and alveolar infiltrate with peripheral wedge-shaped consolidation , most severe at the bases. There is a 2.3 cm right pleural effusion. There is a 3.4 cm left pleural effusi on. There is a 2 cm right adrenal nodule, Hounsfield units = 43. There is a 1.9 cm left adrenal nodule, Hounsfield units = 28. There is a 2.1 cm cyst at the upper pole of the left kidney. Critical results were discussed with Dr. Thomas by Dr. Gaytan at the time o f dictation. Reading Location: [facility]
[2025-03-30 12:00] LABS: Troponin T High Sensitivity 88 ng/L (<=14)
[2025-03-30 12:06] LABS: Color, Urine Yellow (Yellow); Glucose, Dipstick 1000 mg/dl (Normal); Ketone-Dipstick Negative (Negative); Leukocyte Esterase-Dipstick Negative /ul (Negative); Nitrite-Dipstick Negative (Negative); Occult Blood-Urine 150 /ul (Negative); Protein-Dipstick 500 mg/dl (Negative); Specific Gravity, Urine 1.020 (1.002-1.030); Urine Bilirubin Dipstick Negative (Negative)
[2025-03-30 12:14] LABS: Red Blood Cells-Urine 0-5 SEEN /hpf (0-5)
[2025-03-30 12:16] LABS: Pro- Brain NATRIURETIC PEPTIDE 18735 pg/mL (<=900)
[2025-03-30] MEDS: Azithromycin 500 MG in 0.9% Normal Saline (250mL Bag) 250 ML 250 MG IV (13:11)
--- NOTE | 2025-03-30 13:29 | PCM.HP.STD ---
HPI - General General Date of Admission: 03/30/25 Date of Service: 03/30/25 Chief Complaint: Shortness of breath HPI Narrative TRENTON DENTON, is a 54 F who presented to [facility] ED on 03/30/2025 with shortness of breath. Medical history significant for chronic HFrEF with most recent EF 30%, poorly controlled type 2 diabetes mellitus with neuropathy and gastroparesis, nonobstructive CAD, severe PVD s/p stenting, hypertension, hyperlipidemia, GERD and depression. Patient was recently hospitalized here from 01/29-02/11 for acute on chronic debility and inability to ambulate secondary to acute nondisplaced fractures of the right inferior and superior pubic processes due to a recent fall. That hospital course was prolonged as it took over a week to obtain insurance authorization for placement. Unclear how long patient was at SNF but she presented to the ED from home today. On arrival to the ED she was noted to be hypoxic to the 60s on room air at rest and was placed on BiPAP for this. CTA chest showed bilateral PE, diffuse patchy interstitial alveolar infiltrates with peripheral wedge-shaped consolidation most severe at lung bases, and bilateral mild to moderate pleural effusions. BNP over 18,000. Troponin trend 88 > 109. Lactic acid 3.6. ABG on BiPAP at 100% FiO2 showed pH 7.36, pO2 74, pCO2 36. Labs otherwise notable for WBC count 17 and glucose 450. Patient was given doses of IV antibiotics, IV Lasix, IV Solu-Medrol and placed on heparin drip. Hospitalist was then contacted for admission. I saw the patient at bedside in the ED. Patient was laying back in bed and breathing comfortably on BiPAP. BiPAP was at 50% FiO2 and she was maintaining saturations in the low to mid 90s. She was in sinus tachycardia to 110s but was hypertensive to the 140s to 150s systolic. She was fatigued but was answering questions appropriately for me. Noted that she felt mildly short of breath currently but improved from earlier today. She otherwise felt quite nauseous. No other acute concerns currently. Will be admitted for further management. Shortly after patient arrived up to the ICU, I was notified by nursing staff that patient felt very nauseous and like she needed to vomit. BiPAP was removed for this and patient desaturated to the 70s. She was placed on a nonrebreather but her oxygenation only improved up to the high 70s to low 80s. I saw the patient at bedside and she was slightly more fatigued appearing than in the ED and had mild increased work of breathing on nonrebreather. Her saturations remained right around 80%. Given her nausea and inability to tolerate BiPAP due to this, decision made to intubate the patient. See bedside procedure note for further details. [facility] Medical History L5 vertebral fracture ESBL (extended spectrum beta-lactamase) producing bacteria infection Generalized weakness Candidiasis of breast Colitis Debility PTSD (post-traumatic stress disorder) Closed compression fracture of L3 vertebra Hypokalemia Colitis BiPAP (biphasic positive airway pressure) dependence Coronary artery disease On home oxygen therapy Rheumatoid arthritis Sleep apnea Smoker DVT (deep venous thrombosis) Seizures Amputation toe Psychiatric disorder Ischemic cardiomyopathy Diabetes type 2, uncontrolled Essential hypertension Substance abuse Alcohol abuse Depression Osteoporosis GERD (gastroesophageal reflux disease) Pulmonary embolism Myocardial infarct Pericardial effusion Hypoxemia Acute dyspnea Aftercare following surgery of the circulatory system Hx of fracture of humerus Toe amputee Hyperlipidemia CHF (congestive heart failure) CAD (coronary artery disease), [place] coronary artery Home Medications ?Medication ?Instructions ?Recorded ?Last Taken ?Type aspirin 81 mg capsule 81 mg PO DAILY heart health 08/10/22 09/06/24 History clopidogrel 75 mg tablet 75 mg PO DAILY anti platelet #30 02/03/23 09/06/24 Rx tabs pantoprazole 40 mg tablet,delayed 40 mg PO DAILY reflux 04/18/23 09/06/24 History release sacubitril 24 mg-valsartan 26 mg 1 tab PO BID .bp 30 days #60 tabs 05/07/23 09/06/24 Rx tablet (Entresto) atorvastatin 80 mg tablet 80 mg PO QHS cholesterol 12/29/23 09/06/24 History gabapentin 300 mg capsule 300 mg PO TID nerve pain 12/29/23 09/06/24 History DIC 2%/RINKU 6%/LIDOC 2% IN 1 - 2 pump subdermal Q6H PRN FOR 02/14/24 09/06/24 History saltsable FEET cholecalciferol (vitamin D3) 1,250 1,250 mcg PO WE supplement 02/14/24 09/03/24 History mcg (50,000 unit) tablet spironolactone 25 mg tablet 25 mg PO DAILY water pill 30 days 02/17/24 09/06/24 Rx #0 tabs ergocalciferol (vitamin D2) 1,250 1,250 mcg PO We@1000 #0 caps 02/19/24 09/03/24 Rx mcg (50,000 unit) capsule (Vitamin D2) escitalopram oxalate 20 mg tablet 20 mg PO DAILY depression 06/29/24 09/06/24 History furosemide 20 mg tablet 20 mg PO DAILY water pill 06/29/24 09/06/24 History midodrine 2.5 mg tablet 2.5 mg PO DAILY blood pressure 06/29/24 09/06/24 History polyethylene glycol 3350 17 17 g PO BID PRN constipation 06/29/24 Unknown History gram/dose oral powder (Miralax) sennosides 8.6 mg-docusate sodium 2 tab PO BID PRN constipation 06/29/24 Unknown History 50 mg tablet (Stimulant Laxative Plus) tizanidine 4 mg tablet 4 mg PO 3XD spasm 06/29/24 09/06/24 History acetaminophen 500 mg tablet 1,000 mg (2 x 500 mg) PO Q8 #0 tabs 09/02/24 09/06/24 Rx sennosides 8.6 mg-docusate sodium 2 tab PO BID #60 tabs 09/16/24 Unknown Rx 50 mg tablet (Stimulant Laxative Plus) metoclopramide HCl 10 mg tablet 10 mg PO Q6H PRN nausea and 09/21/24 Unknown Rx (Reglan) vomiting 5 days #20 tabs nystatin 100,000 unit/gram topical 1 applic topical TID #0 grams 02/11/25 Unknown Rx powder oxycodone 5 mg tablet 5 mg PO Q4H PRN PRN pain 4-10 3 02/11/25 Unknown Rx days #12 tabs insulin glargine 100 unit/mL (3 unit subcut DM 03/30/25 Unknown History mL) subcutaneous pen (Lantus Solostar U-100 Insulin) insulin lispro 100 unit/mL 20 unit subcut DAILY DM 03/30/25 Unknown History subcutaneous pen (Humalog KwikPen (U-100) Insulin) insulin lispro 100 unit/mL 27 unit subcut DAILY DM 03/30/25 Unknown History subcutaneous pen (Humalog KwikPen (U-100) Insulin) Allergy/AdvReac Type Severity Reaction Status Date / Time latex Allergy Hives Verified 01/29/25 15:41 Family History Mother Thyroid disorder Diabetes Hypertension Grandmother Diabetes Uncle Diabetes Aunt Diabetes Other Heart disease Surgical History History of cholecystectomy History of appendectomy History of cholecystectomy Social History household members: spouse and children housing: house Smoking Status: Current every day smoker tobacco type: cigarettes alcohol intake: never substance use type: marijuana what type of physical activity do you participate in: none do you feel safe at home: Yes ROS Constitutional Constitutional: Reports fatigue and weakness; Denies chills or fever(s) Eyes Eyes: Denies change in vision Cardiovascular Cardiovascular: Reports dyspnea on exertion and edema; Denies chest pain, lightheadedness, orthopnea or palpitations Respiratory/Chest Respiratory/Chest: Reports shortness of breath at rest; Denies cough, productive cough or wheezing Gastrointestinal Gastrointestinal: Reports nausea; Denies abdominal pain, constipation, diarrhea or vomiting Musculoskeletal Musculoskeletal: Denies arthralgias or myalgias Neurologic Neurologic: Denies dizziness, focal weakness or headache(s) Vital Signs Vital Signs Vital Signs: 03/30/25 10:18 03/30/25 10:26 03/30/25 10:28 Temperature 97.7 F L Temperature Source Temporal Pulse Rate 109 H Respiratory Rate 27 H Respiratory Effort Short of Breath Labored Respiratory Pattern Tachypnea Blood Pressure 156/99 H Blood Pressure Mean 118 Pulse Ox 93 Oxygen Delivery Method Room Air Bi-pap Bi-pap Oxygen Flow Rate (L/min) Fraction of Inspired Oxygen (FIO2) 03/30/25 10:30 03/30/25 11:05 03/30/25 11:05 Temperature 97.7 F L Temperature Source Temporal Pulse Rate 110 H 108 H 108 H Respiratory Rate 31 H 35 H 35 H Respiratory Effort Respiratory Pattern Tachypnea Tachypnea Blood Pressure 156/99 H Blood Pressure Mean 118 Pulse Ox 81 97 Oxygen Delivery Method Non-Rebreather Oxygen Flow Rate (L/min) 15 Fraction of Inspired Oxygen (FIO2) 100 03/30/25 11:18 03/30/25 11:27 03/30/25 12:00 Temperature Temperature Source Pulse Rate 104 H 110 H Respiratory Rate 32 H 29 H Respiratory Effort Respiratory Pattern Blood Pressure 149/87 H 143/93 H Blood Pressure Mean 107 109 Pulse Ox 98 94 Oxygen Delivery Method Bi-pap Bi-pap Oxygen Flow Rate (L/min) Fraction of Inspired Oxygen (FIO2) 60 03/30/25 12:00 03/30/25 13:00 Temperature 96.3 F L 98.2 F Temperature Source Core Core Pulse Rate 110 H 110 H Respiratory Rate 29 H 31 H Respiratory Effort Respiratory Pattern Blood Pressure 143/93 H 159/91 H Blood Pressure Mean 109 113 Pulse Ox 93 93 Oxygen Delivery Method Bi-pap Bi-pap Oxygen Flow Rate (L/min) Fraction of Inspired Oxygen (FIO2) Weight Weight: 94.6 kg Body Mass Index (BMI) 33.6 Physical Exam Const Constitutional Narrative: Intubated and sedated, not following commands. Class I obesity. HEENT normocephalic, head/scalp atraumatic, moist oral mucous membranes and oropharynx normal HEENT Narrative: ET tube in place. Eyes PERRL, EOMs intact bilaterally and conjunctivae normal Neck supple Resp Resp Narrative: Diminished breath sounds bilaterally throughout with crackles noted throughout as well. No wheezing noted. Cardio no murmurs Cardio Narrative: Tachycardic, regular rhythm. GI normal to inspection, nondistended, normoactive bowel sounds, soft to palpation and non-distended Extremity Extremity Narrative: +2-3 pitting edema in right lower extremity from knee down. +1 pitting edema in left lower extremity from knee down. Results Lab / Micro Data 03/30/25 10:53 03/30/25 10:53 Labs: Laboratory Results - last 24 hr 03/30/25 10:53: WBC 17.6 H, RBC 3.82 L, Hgb 10.5 L, Hct 32.4 L, MCV 84.8, MCH 27.5, MCHC 32.4, RDW Std Deviation 44.3 H, RDW Coeff of [place] 14.2, Plt Count 255, MPV 9.4, Immature Gran % (Auto) 0.500, Neut % (Auto) 90.0 H, Lymph % (Auto) 4.7 L, [place] % (Auto) 4.5, Eos % (Auto) 0.1, Baso % (Auto) 0.2, Absolute Neuts (auto) 15.8 H, Absolute Lymphs (auto) 0.83, Nucleated RBC % 0, Sodium 136, Potassium 4.0, Chloride 102, Carbon Dioxide 20.0 L, Anion Gap 13, BUN 32 H, Creatinine 0.78, Estim Creat Clear Calc 96.68, Est GFR (MDRD) Non-Af 90, BUN/Creatinine Ratio 41.4 H, Glucose 450 H, Calcium 9.7, Total Bilirubin 1.75 H, AST 37 H, ALT 19, Alkaline Phosphatase 130 H, [place] [address] H, Total Protein 7.6, Albumin 4.1, Globulin 3.5, Albumin/Globulin Ratio 1.2 03/30/25 11:00: PT 14.0, INR 1.1, APTT 27.8 03/30/25 11:20: Lactic Acid 3.6 H*, Troponin T High Sens 88 H* 03/30/25 11:46: Urine Color Yellow, Urine Clarity Sl. Cloudy, Urine pH 6.0, Ur Specific [place] 1.020, Urine Protein 500 H, Urine Glucose (UA) 1000 H, Urine Ketones Negative, Urine Occult Blood 150 H, Urine Nitrite Negative, Urine Bilirubin Negative, Urine Urobilinogen Normal, Ur Leukocyte Esterase Negative, Urine RBC 0-5 SEEN, Urine WBC 0 SEEN, Ur Squamous Epith Cells 0 SEEN, Urine Bacteria 0 SEEN, Urine Mucus 0 SEEN Micro: Microbiology 03/30/25 10:41 Mucosa - Nose SARS-CoV-2, Influenza & RSV (PCR) - Final ABG Data ABG results: ABG 03/30/25 10:38 Specimen Type ART Sample Site L Radial pH 7.36 Bicarbonate Actual 20.5 L Total CO2 22 Base Excess -5 L O2 Saturation 94 O2 % 100.0 ABG pCO2 36.0 ABG pO2 74 L Wilbert Test Positive O2 Delivery Device BiPAP Vent Mode Not entered Imaging Radiology Impression Chest X-Ray 03/30/25 10:26 IMPRESSION: Prominent bilateral airspace disease is seen, predominantly in the mid to lower lung zones. Findings are most concerning for Pulmonary Edema; cannot exclude superimposed pneumonitis. No definite pleural effusion is seen. No pneumothorax is noted. The cardiomediastinal silhouette is stable, without evidence of cardiomegaly. Generalized osteopenia is seen. No interval osseous change is noted. Reading Location: [id number] Chest CTA 03/30/25 11:55 IMPRESSION: There is an enlarged precarinal lymph node measuring 2.3 x 1.4 cm, image [id number]. There is partly occlusive thrombus visible in the proximal right lower lobe pulmonary arteries, image [id number]. There is partly occlusive clot visible to the right upper lobe pulmonary vessels, image 143/265. There is nonocclusive clot visible in the left upper lobe proximal branch vessels, image 161/265. There is diffuse patchy interstitial and alveolar infiltrate with peripheral wedge-shaped consolidation, most severe at the bases. There is a 2.3 cm right pleural effusion. There is a 3.4 cm left pleural effusion. There is a 2 cm right adrenal nodule, Hounsfield units = 43. There is a 1.9 cm left adrenal nodule, Hounsfield units = 28. There is a 2.1 cm cyst at the upper pole of the left kidney. Critical results were discussed with Dr. Thomas by Dr. Gaytan at the time of dictation. Reading Location: [facility] Assessment & Plan Assessment/Plan (1) Acute hypoxemic respiratory failure: (2) Acute on chronic HFrEF (heart failure with reduced ejection fraction): (3) Bilateral pulmonary embolism: PLAN: Plan Patient is a 54-year-old female who presented to [facility] ED on 03/30/2025 with shortness of breath. 1. Acute hypoxic respiratory failure secondary to acute HFrEF exacerbation in setting of bilateral PE ? Admit under inpatient as to ICU. Plastic Surgery Manager and nitroglycerin supervisor consulted. Not on home oxygen. Was requiring BiPAP on admit to maintain appropriate oxygen saturations. ABG on BiPAP at 100% with pH 7.36, pO2 74, pCO2 36. CTA chest showed bilateral PE, diffuse patchy interstitial alveolar infiltrates with peripheral wedge-shaped consolidation most severe at lung bases, and bilateral mild to moderate pleural effusions. BNP over 18,000. Troponin trend 88 > 109. Repeat echo on admit showed worsened EF of 20%, moderately dilated LV, severe generalized hypokinesis with apical akinesis, stage I diastolic dysfunction, notably normal RV and no evidence of right heart strain. Unfortunately did not tolerate BiPAP due to nausea and required mechanical intubation shortly after arrival to the ICU. Will treat with IV Lasix 60 mg every 8 hours for now, monitor daily BMP and urine output. Will also treat with heparin drip for PE as above. Lower extremity duplex ultrasound ordered. Will hold home aspirin, Plavix, Entresto and spironolactone. Okay to continue home atorvastatin. Appreciate further human resources partner and cardiology recommendations. 2. Elevated lactic acid ? Lactic acid 3.6 on admit. No lactic acidosis noted. Suspect primarily due to hypoxia. Notably with mild leukocytosis noted on admit but no evidence of pneumonia on imaging and procalcitonin normal. Will hold on antibiotics at this time. Lactic acid improved to 2.1 after intubation, no need to monitor further. 3. Poorly controlled type 2 diabetes mellitus with hyperglycemia, history of diabetic neuropathy and gastroparesis ? Blood glucose 450 on admit. Most recent A1c 13.2% on 01/29. Blood sugars were better controlled during recent hospitalization in late January?early February on increased insulin regimen. Will treat with Lantus 20 units twice daily and Humalog 5 units every 6 hours plus sliding scale insulin for now, adjust as needed. Continue home gabapentin. 4. History of nonobstructive CAD, history of PVD s/p stenting, hypertension, hyperlipidemia ? History of peripheral arterial stenting about 2 to 3 years ago. Holding aspirin, Plavix, Entresto and spironolactone on admit as above. Continue home statin. 5. Acute on chronic debility with recent pelvic fractures ? PT/OT/case management consulted. Patient recently hospitalized here from 01/29-02/11 for inability to ambulate secondary to fall with pelvic fractures. She was discharged to SNF at that time. Unclear how long she was at SNF but she came from home for this hospitalization. Suspect she will need SNF placement again on discharge. Chronic medical conditions: ? Class I obesity: BMI 33 on admit. Complicates hospital course and care. ? GERD: Continue home PPI. ? Anxiety/depression: Continue home escitalopram. ? Vitamin D deficiency: Continue home vitamin D supplement. ? Chronic normocytic anemia: Hemoglobin stable at baseline 10-11 on admission. DVT prophylaxis: Not indicated, on heparin drip CODE STATUS: Full code, verified Expected disposition: TBD Total clinical time spent by myself addressing the patient's medical issues, reviewing all the data, and collaborating with patient's care team: 86 minutes. Charges/Coding Visit Charges Inpatient E&M: 98233 Init Hosp L3
[2025-03-30] MEDS: Heparin Injection (Vial) 5,000 UNIT/ML VIAL 4000 UNIT IV (13:30)
[2025-03-30] MEDS: HEPARIN/D5w 25,000 UNITS 25,000 UNITS/250 ML IV.SOLN. 11.4 UNITS CONT INF (13:32)
[2025-03-30 13:42] LABS: Prothrombin Time (Protime)PT. 13.9 SECONDS (11.7-14.9)
[2025-03-30 13:43] LABS: Partial Thromboplast Time 27.7 Seconds (24.1-36.2)
[2025-03-30 13:58] LABS: Troponin T High Sens 2 HR 109 ng/L (<=14)
--- NOTE | 2025-03-30 14:01 | ECHOCS_ITS ---
Reason For Study Reason For Study: Emboli Procedure This was a 2D Doppler, Color Flow transthoracic echocardiogram. The study was technically difficult. Contrast injection was performed. Echo done with patient sitting up and on BIPAP due to SOB. Exam performed portable in ED. Left Ventricle Moderately dilated left ventricular cavity. Severe generalized hypokinesis with apical akinesis. Estimated LVEF 20%. At least stage I diastolic dysfunction. Right Ventricle Normal right ventricle. Atria The left atrium is moderately enlarged. Normal right atrium. Mitral Valve Moderate (2+) mitral valve insufficiency. Tricuspid Valve The tricuspid valve is not well visualized. Aortic Valve The aortic valve is not well visualized in the short axis view. There is no aortic stenosis. Pulmonic Valve The pulmonic valve is not well visualized. Great Vessels Normal sized aortic root. Pericardium/Pleural Trivial pericardial effusion. Medication Diluted definity 2ml given slow IV push to enhance endocardial definition. MMode/2D Measurements & Calculations LVIDd: 6.0 cm IVSd: 0.69 cm Ao root diam: 2.8 cm LVIDs: 5.3 cm LVPWd: 1.1 cm FS: 12.7 % LAV(MOD-bp): 50.3 ml LVAd ap4: 46.5 cm2 LVAd ap2: 45.0 cm2 LAV(MOD-bp) Indexed: 24.7 ml/m2 LVLd ap4: 9.3 cm LVLd ap2: 9.0 cm LAV(MOD-sp2): 53.4 ml EDV(MOD-sp4): 193.7 ml EDV(MOD-sp2): 185.3 ml LAV(MOD-sp4): 45.2 ml EDV(sp4-el): 197.9 ml EDV(sp2-el): 191.6 ml LVAs ap4: 40.9 cm2 LVAs ap2: 39.3 cm2 LVLs ap4: 8.7 cm LVLs ap2: 8.3 cm ESV(MOD-sp4): 154.8 ml ESV(MOD-sp2): 147.5 ml ESV(sp4-el): 162.7 ml ESV(sp2-el): 158.1 ml EF(MOD-sp4): 20.1 % EF(MOD-sp2): 20.4 % EF(sp4-el): 17.8 % SV(MOD-sp4): 38.9 ml SV(MOD-sp2): 37.7 ml SV(sp4-el): 35.2 ml SI(MOD-sp4): 19.1 ml/m2 SI(MOD-sp2): 18.6 ml/m2 LA A4 area: 16.2 cm2 LA dimension(2D): 4.5 cm Doppler Measurements & Calculations MV E max disha: 156.8 cm/sec MV V2 max: 190.6 cm/sec Ao V2 max: 117.0 cm/sec MV max P.5 mmHg Ao max P.5 mmHg MV V2 mean: 112.3 cm/sec Ao V2 mean: 87.1 cm/sec MV mean P.1 mmHg Ao mean P.3 mmHg MV V2 VTI: 27.1 cm Ao V2 VTI: 22.9 cm AV (velocity ratio): 0.79 LV V1 max: 79.3 cm/sec MR max disha: 457.3 cm/sec PA V2 max: 70.8 cm/sec LV V1 max P.5 mmHg MR max P.9 mmHg LV V1 mean P.3 mmHg LV V1 mean: 53.1 cm/sec LV V1 VTI: 18.2 cm ECHO/Echo Complete W/ Contrast Interpretation Summary Moderately dilated left ventricular cavity. Severe generalized hypokinesis with apical akinesis. Estimated LVEF 20%. At least stage I diastolic dysfunction. The left atrium is moderately enlarged. Moderate (2+) mitral valve insufficiency. Trivial pericardial effusion. The study was technically difficult. Ordering Physician: Jonas Justin Performed By: Vaughn Waters RCS
--- NOTE | 2025-03-30 14:04 | VDLE_ITS ---
Reason For Study Reason For Study: pulmonary embolism RIGHT LEFT GSV is normal. GSV is normal. CFV is compressible, spontaneous, phasic, competent CFV is compressible, spontaneous, phasic, competent, and demonstrates normal augmentation. and demonstrates normal augmentation. FV is compressible, spontaneous, phasic, competent FV is compressible, spontaneous, phasic, competent and demonstrates normal augmentation. and demonstrates normal augmentation. POP V is compressible, spontaneous, phasic, competent POP V is compressible, spontaneous, phasic, competent and demonstrates normal augmentation. and demonstrates normal augmentation. T/P Trunk is compressible. T/P Trunk is compressible. PTV is compressible. PTV is compressible. RT PerV is compressible. LT PerV is compressible. Procedure This is a venous duplex using B-mode, color flow and spectral Doppler. Exam performed portable in patient room. A preliminary report was called and/or faxed to ICU @ 07:35 am. PT on vent. VL/Venous Duplex US - Geovani Extrem Interpretation Summary Deep veins of the bilateral lower extremities are patent and compressible segme ntally. There is no evidence of bilateral lower extremity deep vein thrombosis. The bilateral great saphenous veins appea r patent and compressible segmentally. Ordering Physician: Jonas Justin Referring Physician: Zohreh Pratt Performed By: Tiffany Rosado, EDMOND, RVT
--- NOTE | 2025-03-30 14:23 | ED.RN ---
Report called to ICU
[2025-03-30 15:09] LABS: Procalcitonin 0.16 ng/mL (<=0.10)
--- NOTE | 2025-03-30 15:20 | NURSING ---
1535: Dr. Cabrera at bedside to intubate at 1535. Versed and etomidate given at 1431, see MAR for further documentation. Patient successfully intubated at 1548, with color change and equal bilateral breath sounds. Vitals stable 7.5 ET tube, 22 at lip.
[2025-03-30 15:26] LABS: Reflex Lactate? Y
--- NOTE | 2025-03-30 15:39 | NURSING ---
1520: Pt c/o feeling nausea and needing the bipap mask off. Bipap contraindicated with nausea and vomiting. Upon removing bipap mask and placing pt on 100% NRB mask, sats noted to drop into 60's and 70's. Dr. Justin updated immediately and requested to pt's bedside. ICU staff prepping for intubation.
--- NOTE | 2025-03-30 15:43 | NURSING ---
Pt's daughter Ashlee updated on pt's pending intubation. States,I will be in.
[2025-03-30] MEDS: fentaNYL drip 100 ML 5 MCG CONT INF (15:45)
[2025-03-30] MEDS: Propofol 10MG/Ml 1,000 MG/100 ML Bottle 5.7 MG CONT INF (15:45)
[2025-03-30] MEDS: Midazolam 2 MG/2 ML Syringe 4 MG IV (15:56)
--- NOTE | 2025-03-30 16:05 | RAD_ITS ---
PROCEDURE: CHEST 1 VIEW (PORTABLE) 03/30/2025 REASON FOR EXAM: ET TUBE PLACEMENT TECHNIQUE: Frontal view of the chest. COMPARISON: Earlier same day 03/30/2025. FINDINGS: Endotracheal tube tip projects 5.1 cm above the keanu. Enteric tube courses midline and appears to extend below the diaphragm into the left upper abdomen, with the distal tip not well-visualized on this exam due to patient body habitus. Unchanged lung aeration. Small bilateral pleural effusions and probable perihilar pulmonary edema. Coexisting consolidation not excluded. No pneumothorax. RAD/Chest 1 View (Portable) IMPRESSION: 1. Endotracheal tube tip 5.1 cm above the keanu. 2. Enteric tube appears appropriately positioned, but distal tip not well-visua lized. 3. Unchanged small bilateral pleural effusions and perihilar edema/consolidatio n. Reading Location: [id number]
[2025-03-30] MEDS: Furosemide 500 MG in Empty Viaflex 50 mL 1 EACH CONT INF (16:22)
--- NOTE | 2025-03-30 16:55 | PCM.OP.PRO2 ---
Procedures Hospitalists Procedures: [id number] Insert Emergency Airway Bedside Procedural Bedside Procedure Information Date of Procedure: 03/30/25 Pre-Procedure Diagnosis: acute hypoxic respiratory failure Post-Procedure Diagnosis: acute hypoxic respiratory failure Procedure Performed:: endotracheal intubation Procedure Time Out: 15:45 Procedure Start Time: 15:45 Procedure Stop Time: 15:50 Special Medications: Etomidate 30 mg, Versed 2 mg Description of procedure: Patient with evidence of respiratory distress and hypoxia on nonrebreather mask. Consent obtained from patient for endotracheal ovation. Patient intubated in standard fashion with visualization of the vocal cords with glide scope and passage of the ET tube. 7.5mm ET tube used. Positioning verified with auscultation and end-tidal CO2 monitoring. Postintubation chest x-ray with appropriate ET tube and OG tube placement. Spinning Lathe Operator Automatic consult placed. Sedation with propofol and fentanyl drips. Complications Complications: No
[2025-03-30 17:35] LABS: Allen Test Positive; Base Excess -3 mmol/L (-2 to +2); FI02 60.0; PEEP 5; PO2 52 mmHG (75-100); RR 16; SITE L Radial; SO2 87 % (94-98)
[2025-03-30 19:36] LABS: CPK Total, Creatine Kinase 303 U/L (24-195); Triglycerides 145 mg/dL
[2025-03-30] MEDS: 0.9% Saline Lock 10 ML Syringe IV (19:45)
[2025-03-30] MEDS: Chlorhexidine 15 ML PO (19:46)
--- NOTE | 2025-03-30 20:34 | NURSING ---
This RN received a the patient's aptt results via the phone at 2037 due to results not populating in the chart. Resulted aptt 75.4 from joaquin in hematology.
[2025-03-30 20:43] LABS: Partial Thromboplast Time 75.4 Seconds (24.1-36.2)
[2025-03-30] MEDS: Insulin Glargine-YFGN 100 UNIT/ML Pen 20 UNIT SC (21:51)
--- NOTE | 2025-03-30 23:30 | RAD_ITS ---
PROCEDURE: CHEST 1 VIEW (PORTABLE) 03/30/2025 REASON FOR EXAM: OG TUBE PLACEMENT TECHNIQUE: Frontal view of the chest. COMPARISON: Earlier same day 03/30/2025 FINDINGS: Endotracheal tube tip projects approximately 4.5 cm above the keanu. Enteric tube courses midline, extending below the diaphragm terminating in the expected location of the stomach in the left upper abdomen. Left upper extremity PICC, catheter tip at the right atrium. Similar small bibasilar pleural effusions/atelectasis, greater on the right. Stable cardiomegaly. Bilateral patchy airspace opacities likely reflecting multifocal pneumonia and/or edema. RAD/Chest 1 View (Portable) IMPRESSION: Support lines/tubes in appropriate positioning, as above. Unchanged small pleural effusions and bilateral patchy airspace opacities. Reading Location: [id number]
[2025-03-31] VITALS (33 sets, daily range): BP systolic 96–137; BP diastolic 56–77; PULSE 16–97; RESP 16–23; TEMP 36.4–37.7; O2SAT 92–99; BMI 31.4
[2025-03-31] MEDS: Propofol 10MG/Ml 1,000 MG/100 ML Bottle 5.7 MG CONT INF (00:24)
[2025-03-31] MEDS: Senna/Docusate Sodium 1 Tablet 2 TABLET PO ×3 (00:24→22:21)
[2025-03-31] MEDS: 0.9% Saline Lock 10 ML Syringe IV ×6 (00:39→22:33)
--- NOTE | 2025-03-31 01:06 | NURSING ---
2200 PO meds given late d/t clogged OG tube, this RN contacted Dr Cameron for an order to replace and verify the OG tube. New OG was placed and it was verified via cxr. 2200 PO meds given.
[2025-03-31] MEDS: CHLORHEXIDINE GLUC 2% CLOTH 1 EACH TOWELETTE TOPICAL ×2 (02:30→08:30)
[2025-03-31] MEDS: fentaNYL drip 100 ML 5 MCG CONT INF (03:11)
[2025-03-31 03:18] LABS: Hematocrit 27.6 % (37-47); Hemoglobin 9.0 g/dL (12.0-15.0); Immature Granulocytes Count 0.060 X10^3/uL (0.0-0.0); Mean Corp Hgb Conc 32.6 g/dL (32-36); Mean Corpuscular Volume 83.6 fL (81-99); Mean Platelet Vol. 9.6 fl (6.2-12.0); NRBC Flagged by Analyzer 0 % (0-5); Platelet Count 210 K/mm3 (150-450); RBC Distribution Width CV 14.3 % (11.6-14.6); RBC Distribution Width SD 43.8 fl (35.1-43.9); Red Blood Count 3.30 M/mm3 (4.2-5.4); White Blood Count 10.8 K/mm3 (4.4-11.0)
[2025-03-31 03:43] LABS: Partial Thromboplast Time 108.8 Seconds (24.1-36.2)
[2025-03-31 03:52] LABS: AST(SGOT) 30 U/L (<=31); Alanine Aminotransfer ALT/SGPT 14 U/L (<=34); Albumin, Serum 3.6 g/dL (3.5-5.0); Alkaline Phosphatase 101 U/L (35-104); Anion Gap 10 (5-15); BUN 39 mg/dL (4-19); BUN/Creat Ratio 38.6 RATIO (10-20); Calcium,Total 9.2 mg/dL (7.6-11.0); Carbon Dioxide 23.9 mmol/L (21.0-32.0); Chloride 106 mmol/L (98-108); Estimated Creatinine Clearance 72.18 ml/min (50-250); Globulin 2.9 g/dL (2.2-4.2); Glucose 286 mg/dL (70-99); Potassium 3.8 mmol/L (3.3-5.1)
--- NOTE | 2025-03-31 05:58 | EX.PCM.CONCC ---
Assessment & Plan Assessment/Plan (1) Acute on chronic HFrEF (heart failure with reduced ejection fraction): (2) Bilateral pulmonary embolism: (3) Acute hypoxemic respiratory failure: PLAN: Plan RECOMMENDATIONS: 1. Continue assist-control mode of mechanical ventilation. Continue to wean FiO2 and PEEP as tolerated. 2. Initiate empiric antimicrobials, pending infectious workup. 3. Ongoing diuresis, as tolerated by hemodynamics and renal function. 4. Check strep and urine Legionella antigens. 5. Continue weight-based heparin infusion. 6. Continue propofol and fentanyl for sedation. Goal to maintain a RASS of -1 to 1. 7. Continue appropriate GI prophylaxis. IMPRESSIONS: 1. Acute hypoxemic respiratory failure Most likely multifactorial in etiology with acute decompensated heart failure, pulmonary emboli and possible pneumonia contributing. The patient was ultimately intubated as a consequence of the aforementioned presentation. She will be maintained on assist-control mode of mechanical ventilation, with a goal to wean FiO2 and PEEP to maintain saturations at or above 90%. She will be continued on a weight-based heparin infusion with ongoing diuresis, as tolerated by hemodynamics and renal function. Given that I cannot definitively rule out infection at the present time, we will plan to initiate empiric antimicrobials, pending culture data. 2. Acute decompensated heart failure Continue current medical management with diuretics, as tolerated by hemodynamics and renal function. The patient has a longstanding history of chronic combined congestive heart failure. 3. Sepsis The patient presented with sepsis due to possible pneumonia with acute sepsis related organ dysfunction as evidenced by lactic acidemia and acute respiratory failure requiring invasive mechanical ventilatory support. The patient did not receive full sepsis related volume resuscitation over concerns for volume overload in the setting of CHF. Will plan to restart antimicrobials today, pending further infectious workup. The patient remains otherwise hemodynamically stable. 4. History of chronic GERD/diabetes mellitus/gastroparesis/diabetic neuropathy/coronary artery disease/hyperlipidemia/peripheral vascular disease/depression Complicates care, management, recovery and prognosis. Continue supportive care as noted above. Will continue to monitor blood glucose levels and initiate basal and sliding scale insulin coverage, as needed. TIME: 40 minutes of critical care time, independent of procedures, was spent addressing the patient's acute hypoxemic respiratory failure, acute decompensated heart failure, sepsis, review of all data and collaboration with the care team. HPI Consult Data Date of Consult: 03/31/25 HPI Narrative Reason for Consultation: Acute hypoxemic respiratory failure HPI Narrative: The patient is a 54-year-old female, with a history as outlined below, who presented to the emergency department via EMS on March 30 with complaints of progressive dyspnea. History pertinent to the patient's hospitalization was obtained primarily via chart review, the patient is currently intubated and mechanically ventilated. She does have a known history of diabetes mellitus along with associated gastroparesis, nonobstructive coronary artery disease, peripheral vascular disease, GERD and chronic combined heart failure. On presentation to the emergency department, the patient was noted to be afebrile hemodynamically stable. She was, however, documented to be tachycardic and tachypneic. The patient presented to the emergency department with respiratory distress and was subsequently placed on noninvasive positive pressure ventilatory support. Laboratory evaluation revealed an elevated white blood cell count to 18,000. Coagulation profile was unremarkable. Initial arterial blood gas was notable for a pH of 7.36 with a pCO2 of 36 and pO2 of 74. Glucose was elevated at 450 with a lactate of 3.6. Troponin was increased at 109. BNP was elevated 18,735. Urine analysis was unremarkable. CTA demonstrated small PE bilaterally with diffuse patchy interstitial infiltrate and pleural effusions. COVID, influenza and RSV PCR's were negative. Blood and urine cultures were collected. The patient did also receive IV antimicrobial therapy over concerns for sepsis. She was placed on a weight-based heparin infusion and admitted to the medical intensive care unit. Shortly after the patient's arrival to the medical intensive care unit, the patient decompensated from a respiratory perspective and was ultimately intubated. She was placed on propofol and fentanyl for sedation. A stat echocardiogram was obtained which demonstrated severe generalized hypokinesis of the LV with an ejection fraction of 20% and stage I diastolic dysfunction. The left atrium was moderately enlarged. It should be noted that the patient also had an echo completed in August 2024 which demonstrated an ejection fraction of 30%. [facility] Medical History L5 vertebral fracture ESBL (extended spectrum beta-lactamase) producing bacteria infection Generalized weakness Candidiasis of breast Colitis Debility PTSD (post-traumatic stress disorder) Closed compression fracture of L3 vertebra Hypokalemia Colitis BiPAP (biphasic positive airway pressure) dependence Coronary artery disease On home oxygen therapy Rheumatoid arthritis Sleep apnea Smoker DVT (deep venous thrombosis) Seizures Amputation toe Psychiatric disorder Ischemic cardiomyopathy Diabetes type 2, uncontrolled Essential hypertension Substance abuse Alcohol abuse Depression Osteoporosis GERD (gastroesophageal reflux disease) Pulmonary embolism Myocardial infarct Pericardial effusion Hypoxemia Acute dyspnea Aftercare following surgery of the circulatory system Hx of fracture of humerus Toe amputee Hyperlipidemia CHF (congestive heart failure) CAD (coronary artery disease), [place] coronary artery Home Medications ?Medication ?Instructions ?Recorded ?Last Taken ?Type aspirin 81 mg capsule 81 mg PO DAILY heart health 08/10/22 09/06/24 History clopidogrel 75 mg tablet 75 mg PO DAILY anti platelet #30 02/03/23 09/06/24 Rx tabs pantoprazole 40 mg tablet,delayed 40 mg PO DAILY reflux 04/18/23 09/06/24 History release sacubitril 24 mg-valsartan 26 mg 1 tab PO BID .bp 30 days #60 tabs 05/07/23 09/06/24 Rx tablet (Entresto) atorvastatin 80 mg tablet 80 mg PO QHS cholesterol 12/29/23 09/06/24 History gabapentin 300 mg capsule 300 mg PO TID nerve pain 12/29/23 09/06/24 History DIC 2%/RINKU 6%/LIDOC 2% IN 1 - 2 pump subdermal Q6H PRN FOR 02/14/24 09/06/24 History saltsable FEET cholecalciferol (vitamin D3) 1,250 1,250 mcg PO WE supplement 02/14/24 09/03/24 History mcg (50,000 unit) tablet spironolactone 25 mg tablet 25 mg PO DAILY water pill 30 days 02/17/24 09/06/24 Rx #0 tabs ergocalciferol (vitamin D2) 1,250 1,250 mcg PO We@1000 #0 caps 02/19/24 09/03/24 Rx mcg (50,000 unit) capsule (Vitamin D2) escitalopram oxalate 20 mg tablet 20 mg PO DAILY depression 06/29/24 09/06/24 History furosemide 20 mg tablet 20 mg PO DAILY water pill 06/29/24 09/06/24 History midodrine 2.5 mg tablet 2.5 mg PO DAILY blood pressure 06/29/24 09/06/24 History polyethylene glycol 3350 17 17 g PO BID PRN constipation 06/29/24 Unknown History gram/dose oral powder (Miralax) sennosides 8.6 mg-docusate sodium 2 tab PO BID PRN constipation 06/29/24 Unknown History 50 mg tablet (Stimulant Laxative Plus) tizanidine 4 mg tablet 4 mg PO 3XD spasm 06/29/24 09/06/24 History acetaminophen 500 mg tablet 1,000 mg (2 x 500 mg) PO Q8 #0 tabs 09/02/24 09/06/24 Rx sennosides 8.6 mg-docusate sodium 2 tab PO BID #60 tabs 09/16/24 Unknown Rx 50 mg tablet (Stimulant Laxative Plus) metoclopramide HCl 10 mg tablet 10 mg PO Q6H PRN nausea and 09/21/24 Unknown Rx (Reglan) vomiting 5 days #20 tabs nystatin 100,000 unit/gram topical 1 applic topical TID #0 grams 02/11/25 Unknown Rx powder oxycodone 5 mg tablet 5 mg PO Q4H PRN PRN pain 4-10 3 02/11/25 Unknown Rx days #12 tabs insulin glargine 100 unit/mL (3 unit subcut DM 03/30/25 Unknown History mL) subcutaneous pen (Lantus Solostar U-100 Insulin) insulin lispro 100 unit/mL 20 unit subcut DAILY DM 03/30/25 Unknown History subcutaneous pen (Humalog KwikPen (U-100) Insulin) insulin lispro 100 unit/mL 27 unit subcut DAILY DM 03/30/25 Unknown History subcutaneous pen (Humalog KwikPen (U-100) Insulin) Allergy/AdvReac Type Severity Reaction Status Date / Time latex Allergy Hives Verified 01/29/25 15:41 Family History Mother Thyroid disorder Diabetes Hypertension Grandmother Diabetes Uncle Diabetes Aunt Diabetes Other Heart disease Surgical History History of cholecystectomy History of appendectomy History of cholecystectomy Social History household members: spouse and children housing: house Smoking Status: Unknown if ever smoked alcohol intake: never substance use type: marijuana what type of physical activity do you participate in: none do you feel safe at home: Yes ROS Review of Systems ROS Unobtainable: due to endotracheal tube Physical Exam Const Constitutional Narrative: Intubated, sedated and mechanically ventilated. No ventilator dyssynchrony noted. HEENT normocephalic and head/scalp atraumatic Mouth: endotracheal tube in place and OG tube in place Eyes PERRL, conjunctivae normal and no scleral icterus Neck supple General: trachea midline Chest inspection of chest normal Resp Auscultation: diminished lung sounds; Negative for rales, rhonchi or wheezes Cardio regular rate and regular rhythm GI normal to inspection, nondistended, normoactive bowel sounds Extremity General Extremity: edema bilateral lower extremity; Negative for clubbing Skin no rashes or lesions noted Neuro Sensorium / Orientation: sedated on vent Lab / Micro Data 03/31/25 03:05 03/31/25 03:05 Labs: Laboratory Results - last 24 hr 03/30/25 08:00: APTT 75.4 H 03/30/25 10:53: WBC 17.6 H, RBC 3.82 L, Hgb 10.5 L, Hct 32.4 L, MCV 84.8, MCH 27.5, MCHC 32.4, RDW Std Deviation 44.3 H, RDW Coeff of Spencer 14.2, Plt Count 255, MPV 9.4, Immature Gran % (Auto) 0.500, Neut % (Auto) 90.0 H, Lymph % (Auto) 4.7 L, Stephenson % (Auto) 4.5, Eos % (Auto) 0.1, Baso % (Auto) 0.2, Absolute Neuts (auto) 15.8 H, Absolute Lymphs (auto) 0.83, Nucleated RBC % 0, Sodium 136, Potassium 4.0, Chloride 102, Carbon Dioxide 20.0 L, Anion Gap 13, BUN 32 H, Creatinine 0.78, Estim Creat Clear Calc 96.68, Est GFR (MDRD) Non-Af 90, BUN/Creatinine Ratio 41.4 H, Glucose 450 H, Calcium 9.7, Total Bilirubin 1.75 H, AST 37 H, ALT 19, Alkaline Phosphatase 130 H, Total Creatine Kinase 303 H, [place] [address] H, Total Protein 7.6, Albumin 4.1, Globulin 3.5, Albumin/Globulin Ratio 1.2, Triglycerides 145 03/30/25 11:00: PT 14.0, INR 1.1, APTT 27.8 03/30/25 11:20: Lactic Acid 3.6 H*, Troponin T High Sens 88 H* 03/30/25 11:46: Urine Color Yellow, Urine Clarity Sl. Cloudy, Urine pH 6.0, Ur Specific Markle 1.020, Urine Protein 500 H, Urine Glucose (UA) 1000 H, Urine Ketones Negative, Urine Occult Blood 150 H, Urine Nitrite Negative, Urine Bilirubin Negative, Urine Urobilinogen Normal, Ur Leukocyte Esterase Negative, Urine RBC 0-5 SEEN, Urine WBC 0 SEEN, Ur Squamous Epith Cells 0 SEEN, Urine Bacteria 0 SEEN, Urine Mucus 0 SEEN 03/30/25 13:21: PT 13.9, INR 1.1, APTT 27.7, Troponin T Hi Sens 2 Hr 109 H*, Procalcitonin 0.16 H 03/30/25 16:10: Lactic Acid 2.1 H* 03/30/25 16:55: POC Glucose 406 H 03/30/25 18:41: POC Glucose 389 H 03/30/25 19:30: APTT Cancelled 03/30/25 19:39: POC Glucose 374 H 03/30/25 21:46: POC Glucose 338 H 03/31/25 00:11: POC Glucose 299 H 03/31/25 03:05: WBC 10.8, RBC 3.30 L, Hgb 9.0 L, Hct 27.6 L, MCV 83.6, MCH 27.3, MCHC 32.6, RDW Std Deviation 43.8, RDW Coeff of Spencer 14.3, Plt Count 210, MPV 9.6, Immature Gran % (Auto) 0.600, Neut % (Auto) 85.9 H, Lymph % (Auto) 6.9 L, Stephenson % (Auto) 6.5, Eos % (Auto) 0.0, Baso % (Auto) 0.1, Absolute Neuts (auto) 9.3 H, Absolute Lymphs (auto) 0.74 L, Nucleated RBC % 0, APTT 108.8 H*, Sodium 141, Potassium 3.8, Chloride 106, Carbon Dioxide 23.9, Anion Gap 10, BUN 39 H, Creatinine 1.01, Estim Creat Clear Calc 72.18, Est GFR (MDRD) Non-Af 67, BUN/Creatinine Ratio 38.6 H, Glucose 286 H, Calcium 9.2, Total Bilirubin 1.06, AST 30, ALT 14, Alkaline Phosphatase 101, Total Protein 6.5, Albumin 3.6, Globulin 2.9, Albumin/Globulin Ratio 1.2 Micro: Microbiology 03/30/25 10:41 Mucosa - Nose SARS-CoV-2, Influenza & RSV (PCR) - Final ABG Data ABG results: ABG 03/30/25 03/30/25 10:38 17:32 Specimen Type ART ART Sample Site L Radial L Radial pH 7.36 7.40 Bicarbonate Actual 20.5 L 21.8 L Total CO2 22 23 Base Excess -5 L -3 L O2 Saturation 94 87 L O2 % 100.0 60.0 ABG pCO2 36.0 35.2 ABG pO2 74 L 52 L Wilbert Test Positive Positive Respiration Rate 16 O2 Delivery Device BiPAP Adult Vent Vent Mode Not entered AC Tidal Volume 400.0 POC PEEP 5 Imaging Radiology Impression Chest X-Ray 03/30/25 10:26 IMPRESSION: Prominent bilateral airspace disease is seen, predominantly in the mid to lower lung zones. Findings are most concerning for Pulmonary Edema; cannot exclude superimposed pneumonitis. No definite pleural effusion is seen. No pneumothorax is noted. The cardiomediastinal silhouette is stable, without evidence of cardiomegaly. Generalized osteopenia is seen. No interval osseous change is noted. Reading Location: [facility] Chest CTA 03/30/25 11:55 IMPRESSION: There is an enlarged precarinal lymph node measuring 2.3 x 1.4 cm, image 179/265. There is partly occlusive thrombus visible in the proximal right lower lobe pulmonary arteries, image [id number]. There is partly occlusive clot visible to the right upper lobe pulmonary vessels, image 143/265. There is nonocclusive clot visible in the left upper lobe proximal branch vessels, image 161/265. There is diffuse patchy interstitial and alveolar infiltrate with peripheral wedge-shaped consolidation, most severe at the bases. There is a 2.3 cm right pleural effusion. There is a 3.4 cm left pleural effusion. There is a 2 cm right adrenal nodule, Hounsfield units = 43. There is a 1.9 cm left adrenal nodule, Hounsfield units = 28. There is a 2.1 cm cyst at the upper pole of the left kidney. Critical results were discussed with Dr. Thomas by Dr. Gaytan at the time of dictation. Reading [facility] Ech[facility] 03/30/25 14:01 Interpretation Summary Moderately dilated left ventricular cavity. Severe generalized hypokinesis with apical akinesis. Estimated LVEF 20%. At least stage I diastolic dysfunction. The left atrium is moderately enlarged. Moderate (2+) mitral valve insufficiency. Trivial pericardial effusion. The study was technically difficult. Ordering Physician: Jonas Justin Performed By: Vaughn Waters RCS Chest X-Ray 03/30/25 16:05 IMPRESSION: 1. Endotracheal tube tip 5.1 cm above the keanu. 2. Enteric tube appears appropriately positioned, but distal tip not well-visualized. 3. Unchanged small bilateral pleural effusions and perihilar edema/consolidation. Reading Location: [id number] Chest X-Ray 03/30/25 23:30 IMPRESSION: Support lines/tubes in appropriate positioning, as above. Unchanged small pleural effusions and bilateral patchy airspace opacities. Reading Location: [facility] Charges/Coding Procedures Hospitalists Procedures: 15114 Critical Care 1st Hr
--- NOTE | 2025-03-31 07:17 | PCM.PN.HOSP ---
Reason for Visit Chief Complaint: Shortness of breath Subjective Subjective Patient is a 54-year-old lady who presented to the emergency department with progressive shortness of breath studies demonstrated bilateral PE with diffuse patchy interstitial alveolar infiltrates with peripheral wedge-shaped consolidation most severe at the lung bases. Patient was initially placed on noninvasive ventilation BiPAP however respiratory status deteriorated resulting in patient being intubated and admitted to the intensive care unit Objective Data Objective Data Vital Signs: Vital Signs Temp Pulse Resp BP Pulse Ox O2 Del Method O2 Flow Rate 98.6 F 88 16 127/70 H 96 Mechanical Ventilator 15 03/31/25 07:00 03/31/25 07:00 03/31/25 07:00 03/31/25 07:00 03/31/25 07:00 03/31/25 07:00 03/30/25 15:45 FiO2 30 03/31/25 07:00 Oxygen Flow Rate (L/min) 15 Oxygen Delivery Method Mechanical Ventilator Weight: 88.5 kg Body Mass Index (BMI) 31.4 Intake & Output: Intake and Output for Last 24 Hours 03/29/25 03/30/25 03/31/25 23:59 23:59 23:59 Intake Total 967.48 / 1076.93 350.85 / 350.85 Output Total 1300 / 1300 Balance -332.52 / -223.07 350.85 / 350.85 Lab / Micro Data 03/31/25 03:05 03/31/25 03:05 Labs: Laboratory Results - last 24 hr 03/30/25 08:00: APTT 75.4 H 03/30/25 10:53: WBC 17.6 H, RBC 3.82 L, Hgb 10.5 L, Hct 32.4 L, MCV 84.8, MCH 27.5, MCHC 32.4, RDW Std Deviation 44.3 H, RDW Coeff of Spencer 14.2, Plt Count 255, MPV 9.4, Immature Gran % (Auto) 0.500, Neut % (Auto) 90.0 H, Lymph % (Auto) 4.7 L, [place] % (Auto) 4.5, Eos % (Auto) 0.1, Baso % (Auto) 0.2, Absolute Neuts (auto) 15.8 H, Absolute Lymphs (auto) 0.83, Nucleated RBC % 0, Sodium 136, Potassium 4.0, Chloride 102, Carbon Dioxide 20.0 L, Anion Gap 13, BUN 32 H, Creatinine 0.78, Estim Creat Clear Calc 96.68, Est GFR (MDRD) Non-Af 90, BUN/Creatinine Ratio 41.4 H, Glucose 450 H, Calcium 9.7, Total Bilirubin 1.75 H, AST 37 H, ALT 19, Alkaline Phosphatase 130 H, Total Creatine Kinase 303 H, [place] [address] H, Total Protein 7.6, Albumin 4.1, Globulin 3.5, Albumin/Globulin Ratio 1.2, Triglycerides 145 03/30/25 11:00: PT 14.0, INR 1.1, APTT 27.8 03/30/25 11:20: Lactic Acid 3.6 H*, Troponin T High Sens 88 H* 03/30/25 11:46: Urine Color Yellow, Urine Clarity Sl. Cloudy, Urine pH 6.0, Ur Specific [place] 1.020, Urine Protein 500 H, Urine Glucose (UA) 1000 H, Urine Ketones Negative, Urine Occult Blood 150 H, Urine Nitrite Negative, Urine Bilirubin Negative, Urine Urobilinogen Normal, Ur Leukocyte Esterase Negative, Urine RBC 0-5 SEEN, Urine WBC 0 SEEN, Ur Squamous Epith Cells 0 SEEN, Urine Bacteria 0 SEEN, Urine Mucus 0 SEEN 03/30/25 13:21: PT 13.9, INR 1.1, APTT 27.7, Troponin T Hi Sens 2 Hr 109 H*, Procalcitonin 0.16 H 03/30/25 16:10: Lactic Acid 2.1 H* 03/30/25 16:55: POC Glucose 406 H 03/30/25 18:41: POC Glucose 389 H 03/30/25 19:30: APTT Cancelled 03/30/25 19:39: POC Glucose 374 H 03/30/25 21:46: POC Glucose 338 H 03/31/25 00:11: POC Glucose 299 H 03/31/25 03:05: WBC 10.8, RBC 3.30 L, Hgb 9.0 L, Hct 27.6 L, MCV 83.6, MCH 27.3, MCHC 32.6, RDW Std Deviation 43.8, RDW Coeff of Spencer 14.3, Plt Count 210, MPV 9.6, Immature Gran % (Auto) 0.600, Neut % (Auto) 85.9 H, Lymph % (Auto) 6.9 L, [place] % (Auto) 6.5, Eos % (Auto) 0.0, Baso % (Auto) 0.1, Absolute Neuts (auto) 9.3 H, Absolute Lymphs (auto) 0.74 L, Nucleated RBC % 0, APTT 108.8 H*, Sodium 141, Potassium 3.8, Chloride 106, Carbon Dioxide 23.9, Anion Gap 10, BUN 39 H, Creatinine 1.01, Estim Creat Clear Calc 72.18, Est GFR (MDRD) Non-Af 67, BUN/Creatinine Ratio 38.6 H, Glucose 286 H, Calcium 9.2, Total Bilirubin 1.06, AST 30, ALT 14, Alkaline Phosphatase 101, Total Protein 6.5, Albumin 3.6, Globulin 2.9, Albumin/Globulin Ratio 1.2 Micro: Microbiology 03/30/25 10:41 Mucosa - Nose SARS-CoV-2, Influenza & RSV (PCR) - Final ABG Data ABG results: ABG 03/30/25 03/30/25 10:38 17:32 Specimen Type ART ART Sample Site L Radial L Radial pH 7.36 7.40 Bicarbonate Actual 20.5 L 21.8 L Total CO2 22 23 Base Excess -5 L -3 L O2 Saturation 94 87 L O2 % 100.0 60.0 ABG pCO2 36.0 35.2 ABG pO2 74 L 52 L Wilbert Test Positive Positive Respiration Rate 16 O2 Delivery Device BiPAP Adult Vent Vent Mode Not entered AC Tidal Volume 400.0 POC PEEP 5 Radiography Diagnostic Testing: Radiology Impression Chest X-Ray 03/30/25 10:26 IMPRESSION: Prominent bilateral airspace disease is seen, predominantly in the mid to lower lung zones. Findings are most concerning for Pulmonary Edema; cannot exclude superimposed pneumonitis. No definite pleural effusion is seen. No pneumothorax is noted. The cardiomediastinal silhouette is stable, without evidence of cardiomegaly. Generalized osteopenia is seen. No interval osseous change is noted. Reading Location: [facility] Chest CTA 03/30/25 11:55 IMPRESSION: There is an enlarged precarinal lymph node measuring 2.3 x 1.4 cm, image 179/265. There is partly occlusive thrombus visible in the proximal right lower lobe pulmonary arteries, image 129-149/[id number]. There is partly occlusive clot visible to the right upper lobe pulmonary vessels, image 143/265. There is nonocclusive clot visible in the left upper lobe proximal branch vessels, image 161/265. There is diffuse patchy interstitial and alveolar infiltrate with peripheral wedge-shaped consolidation, most severe at the bases. There is a 2.3 cm right pleural effusion. There is a 3.4 cm left pleural effusion. There is a 2 cm right adrenal nodule, Hounsfield units = 43. There is a 1.9 cm left adrenal nodule, Hounsfield units = 28. There is a 2.1 cm cyst at the upper pole of the left kidney. Critical results were discussed with Dr. Thomas by Dr. Gaytan at the time of dictation. Reading Location: [facility] Echocardiogram 03/30/25 14:01 Interpretation Summary Moderately dilated left ventricular cavity. Severe generalized hypokinesis with apical akinesis. Estimated LVEF 20%. At least stage I diastolic dysfunction. The left atrium is moderately enlarged. Moderate (2+) mitral valve insufficiency. Trivial pericardial effusion. The study was technically difficult. Ordering Physician: Jonas Justin Performed By: Vaughn Waters RCS Chest X-Ray 03/30/25 16:05 IMPRESSION: 1. Endotracheal tube tip 5.1 cm above the keanu. 2. Enteric tube appears appropriately positioned, but distal tip not well-visualized. 3. Unchanged small bilateral pleural effusions and perihilar edema/consolidation. Reading Location: [facility] Chest X-Ray 03/30/25 23:30 IMPRESSION: Support lines/tubes in appropriate positioning, as above. Unchanged small pleural effusions and bilateral patchy airspace opacities. Reading Location: [facility] Physical Exam Narrative GENERAL: Sedated on the vent HEENT: Atraumatic; normocephalic EYES; Anicteric, Normal Conjunctiva NECK; supple, normal thyroid, RESPIRATORY: Diminished to auscultation CARDIOVASCULAR: Regular S1 S2, GI: soft, normoactive bowel sounds, : No Renal angle tenderness; EXTREMITIES: Bipedal edema, no clubbing, MUSCULOSKELETAL: no muscle wasting NEURO: Unable to assess SKIN: No Rash Assessment & Plan Assessment/Plan (1) Acute hypoxemic respiratory failure: (2) Acute on chronic HFrEF (heart failure with reduced ejection fraction): (3) Bilateral pulmonary embolism: PLAN: Plan Patient is a 54-year-old lady who presented to the emergency department with progressive shortness of breath studies demonstrated bilateral PE with diffuse patchy interstitial alveolar infiltrates with peripheral wedge-shaped consolidation most severe at the lung bases. Patient was initially placed on noninvasive ventilation BiPAP however respiratory status deteriorated resulting in patient being intubated and admitted to the intensive care unit 1. Acute hypoxic respiratory failure ? Due to combination of bilateral pulmonary embolism, acute congestive heart failure with reduced ejection fraction, suspected pneumonia. Patient was initially manage on BiPAP however respiratory status continued to deteriorate resulting in patient being intubated and subsequently admitted to the intensive care unit. Consult was placed to flaking roll operator/pulmonary medicine. Management of patient events deferred 2. Acute bilateral pulmonary embolism ? With suspected pulmonary infarction. CT of the chest obtained did show partly occlusive thrombus visible in the proximal right lower lobe pulmonary arteries, partly occlusive clot visible to the right upper lobe pulmonary vessels, nonocclusive clot visible in the left upper lobe proximal branch vessels, diffuse patchy interstitial and alveolar infiltrate with peripheral wedge-shaped consolidation, most severe at the bases.Patient started on heparin 3. Acute on chronic congestive heart failure with reduced ejection fraction ?2D echo demonstrated estimated LVEF of 20% with moderately enlarged left atrium, moderate mitral valve insufficiency and trivial pericardial effusion. Patient previous EF was 30%. Patient is on Aldactone as well as furosemide. Consult placed to cardiology 4. Sepsis secondary to pneumonia ? Patient was found to have elevated lactic acid level with evidence of endorgan dysfunction?respiratory failure. Patient did receive IV antibiotics cultures sent continued with antibiotics pending receipt of culture results 5. Diabetes mellitus type 2 with complications including diabetic neuropathy as well as gastroparesis ? Patient recent hemoglobin A1c was 13.2 on 01/29/2025. Glucose levels were markedly elevated on admission. Patient was started on long-acting insulin in addition to Accu-Cheks every 6 hours with sliding scale coverage. Subsequent adjustment made to patient long-acting insulin 6. Peripheral arterial disease ? Previous stent about 1 year ago Patient is on recommended medications including dual antiplatelet therapy as well as statin therapy. Plan is for patient to follow-up as outpatient 7. GERD/possible esophagitis ? Patient is on PPI 8. Chronic hypotension ? Patient is on midodrine. Held on admission 9. Dyslipidemia ?Patient is on statin therapy, continued at home dose 10. Tobacco dependence Plan is to clinical mental health counselor patient on cessation once of the event 11. Chronic back pain ? Secondary to chronic compression fractures plan is to continue with PT OT as tolerated 12. Anemia ? Secondary to chronic disorder monitoring H&H and transfuse if patient becomes symptomatic or hemoglobin falls below 7 13. History of depression with anxiety ? Patient is on escitalopram plan is to resume following extubation 14. Vitamin D deficiency ? Patient is on vitamin D supplementation Time spent in the patient's overall evaluation,decision-making process, review of diagnostic data, adjustment of management, discussion with other providers, nursing nursing and ancillary staff involved in patient's care documentation, 55 Minutes Charges/Coding Visit Charges Inpatient E&M: 51050 [facility] L3
--- NOTE | 2025-03-31 08:25 | RAD_ITS ---
PROCEDURE: CHEST 1 VIEW (PORTABLE) 03/31/2025 REASON FOR EXAM: RESPIRATORY FAILURE TECHNIQUE: Frontal view of the chest. COMPARISON: 03/30/2025. FINDINGS: No significant interval change. Hazy opacification is noted within the right lower lung as well as the left infrahilar region, concerning for ongoing infiltrates. The cardiac silhouette remains enlarged. Stable positioning of the ET and nasogastric tubes. No acute osseous abnormality. RAD/Chest 1 View (Portable) IMPRESSION: As above. Reading Location: [id number]
[2025-03-31] MEDS: Chlorhexidine 15 ML PO ×2 (08:30→22:17)
[2025-03-31] MEDS: Pantoprazole Sodium 40 MG in 0.9% Normal Saline (100mL MB+) 100 ML 330 MG IV (08:31)
[2025-03-31 09:08] LABS: Partial Thromboplast Time 51.4 Seconds (24.1-36.2)
[2025-03-31] MEDS: Vancomycin HCl 2,000 MG in 0.9% Normal Saline (500mL Bag) 500 ML 250 MG IV (09:08)
[2025-03-31] MEDS: 0.9% Normal Saline (250mL Bag) 250 ML 15 ML IV (09:10)
[2025-03-31] MEDS: Insulin Glargine-YFGN 100 UNIT/ML Pen 40 UNIT SC (09:13)
[2025-03-31] MEDS: Piperacil/Tazobactam 3.375 GM in 0.9% Normal Saline (50mL MB+) 50 ML IV ×3 (09:16→22:30)
--- NOTE | 2025-03-31 09:24 | PCM.RX.CS ---
Consult Antibiotic Management Pharmacy has been consulted to manage selected antibiotic: Vancomycin Type of Intervention Type of Consult: New start Suspected Infection Suspected Infection: Pneumonia Labs Labs: Sodium 141 mmol/L (133-145) 03/31/25 03:05 Potassium 3.8 mmol/L (3.3-5.1) 03/31/25 03:05 Chloride 106 mmol/L (98-108) 03/31/25 03:05 Carbon Dioxide 23.9 mmol/L (21.0-32.0) 03/31/25 03:05 Anion Gap 10 (5-15) 03/31/25 03:05 BUN 39 mg/dL (4-19) H 03/31/25 03:05 Creatinine 1.01 mg/dL (0.70-1.20) 03/31/25 03:05 Est GFR (MDRD) Non-Af 67 (>60) 03/31/25 03:05 BUN/Creatinine Ratio 38.6 RATIO (10-20) H 03/31/25 03:05 Glucose 286 mg/dL (70-99) H 03/31/25 03:05 Microbiology Microbiology: Microbiology 03/30/25 16:00 Sputum, Induced/Lukens Gram Stain - Final 03/30/25 11:46 Urine Catheter - [place] Legionella Antigen - Final 03/30/25 11:46 Urine Catheter - [place] Streptococcus pneumoniae Antigen (M - Final 03/30/25 10:41 Mucosa - Nose SARS-CoV-2, Influenza & RSV (PCR) - Final Pharmacy Plan for Drug Dosing Pharmacy Plan for Drug Dosing: NEW START IV VANCOMYCIN Consulting Physician: Yves Indication: pneumonia Goal Trough: 15-20 mg/dL SrCr: 1.01 mg/dL CrCl: 72 mL/min Comments: loading dose of 2000mg given 03/31 @ 0908 Vancomycin Dose: Will start 1250mg Q12 (@2100) and get a level prior to the 4th total dose per policy. Pending Level: 04/01/25 @ 2029 Pharmacy Service will continue to monitor and adjust dosing as required.
--- NOTE | 2025-03-31 10:11 | CASEMGMT ---
RN CM Assessment Face to Face with patient for initial transition planning/care coordination assessment. Pt is currently sedated and intubated and is unable to answer this RN CM questions for assessment. There is no family at the bedside. TC to pt's NOK on file, Ashlee (daughter). Ashlee is agreeable to answering this RN CM questions for assessment. Care providers, pharmacy, and demographics verified. Admitting dx: Acute Hypoxic RF LACE Strata: 3 PCP: C Specialists: Ashlee states that the pt is not currently seeing any specialists Preferred Pharmacy: [facility] Insurance: [employer] Prescription Benefit: Yes LNOK: Ashlee (Daughter), (Mother) Living Arrangements: Pt lives with her daughter & daughter's SO (Ke) in 2 story apartment with a FFSU and one small step to enter ADLs/IADLs: Ashlee states that the pt is mainly indep at baseline but that she and Ke are able to assist the pt as needed Transportation: Pt and pt's daughter do not drive. Ke provides transportation DME: [employer] with sufficient supplies and pen needles for insulin shots. WC. Rollator. FWW. RTS. Shower chair. Home oxygen through [employer]. [facility] reports that the pt's home oxygen states 2L HS via [place] only. Ashlee reports that the pt has a concentrator and x1 portable tank. Ashlee reports that the pt does not have a pulse ox. Informed daughter on affordable purchasing options. HHC/SNF:Daughter reports the pt has been to [facility]. Daughter reports that the pt has had skilled HHC in the past but cannot recall the name of the agency. Pt has been to for OP Tx in the past. Pt?s goal: TBD Plan: TBD. Today is VD#2. Per ICU rounds, SBT to start tomorrow. CM to continue to follow. Pt's daughter denies further questions or concerns at this time. Zulay [employer] RN, CM
--- NOTE | 2025-03-31 11:06 | PCM.CONS.C ---
Assessment & Plan Assessment/Plan (1) Acute hypoxemic respiratory failure: PLAN: Secondary to bilateral pulmonary embolism. Presently intubated. On heparin. (2) Bilateral pulmonary embolism: PLAN: On heparin. (3) Acute on chronic HFrEF (heart failure with reduced ejection fraction): PLAN: EF 15 to 20% on echocardiogram. Continue diuresis. Recommend resuming patient's Entresto when hemodynamically stable. Also then resume patient's beta-blockers. (4) Coronary artery disease: PLAN: Troponin elevation likely type II. Monitor. HPI Consult Data Date of Consult: 03/31/25 HPI Narrative Reason for Consultation: Heart failure HPI Narrative: 54-year-old female with past medical history significant for chronic systolic congestive heart failure with cardiomyopathy thought to be combination of ischemic cardiomyopathy with severe LAD disease, not amenable to revascularization and hypertensive heart disease. She presented to the hospital this time with shortness of breath. She was noted to be hypoxic. CT scan of the chest revealed bilateral pulmonary embolism. She has been intubated. An echocardiogram was done. It showed LV ejection fraction 15 to 20%. [facility] [place] Medical History (Updated 03/31/25 @ 11:[address] Abdirizak Fajardo MD) Tobacco abuse Overweight (BMI 25.0-29.9) L5 vertebral fracture ESBL (extended spectrum beta-lactamase) producing bacteria infection Generalized weakness Candidiasis of breast Colitis Debility PTSD (post-traumatic stress disorder) Closed compression fracture of L3 vertebra Hypokalemia Colitis BiPAP (biphasic positive airway pressure) dependence Coronary artery disease On home oxygen therapy Rheumatoid arthritis Sleep apnea Smoker DVT (deep venous thrombosis) Seizures Amputation toe Psychiatric disorder Ischemic cardiomyopathy Diabetes type 2, uncontrolled Essential hypertension Substance abuse Alcohol abuse Depression Osteoporosis GERD (gastroesophageal reflux disease) Pulmonary embolism Myocardial infarct Pericardial effusion Hypoxemia Acute dyspnea Aftercare following surgery of the circulatory system Hx of fracture of humerus Toe amputee Hyperlipidemia CHF (congestive heart failure) CAD (coronary artery disease), [place] coronary artery Medical History unable to obtain Home Medications ?Medication ?Instructions ?Recorded ?Last Taken ?Type aspirin 81 mg capsule 81 mg PO DAILY heart health 08/10/22 09/06/24 History clopidogrel 75 mg tablet 75 mg PO DAILY anti platelet #30 02/03/23 09/06/24 Rx tabs pantoprazole 40 mg tablet,delayed 40 mg PO DAILY reflux 04/18/23 09/06/24 History release sacubitril 24 mg-valsartan 26 mg 1 tab PO BID .bp 30 days #60 tabs 05/07/23 09/06/24 Rx tablet (Entresto) atorvastatin 80 mg tablet 80 mg PO QHS cholesterol 12/29/23 09/06/24 History gabapentin 300 mg capsule 300 mg PO TID nerve pain 12/29/23 09/06/24 History DIC 2%/RINKU 6%/LIDOC 2% IN 1 - 2 pump subdermal Q6H PRN FOR 02/14/24 09/06/24 History saltsable FEET cholecalciferol (vitamin D3) 1,250 1,250 mcg PO WE supplement 02/14/24 09/03/24 History mcg (50,000 unit) tablet spironolactone 25 mg tablet 25 mg PO DAILY water pill 30 days 02/17/24 09/06/24 Rx #0 tabs ergocalciferol (vitamin D2) 1,250 1,250 mcg PO We@1000 #0 caps 02/19/24 09/03/24 Rx mcg (50,000 unit) capsule (Vitamin D2) escitalopram oxalate 20 mg tablet 20 mg PO DAILY depression 06/29/24 09/06/24 History furosemide 20 mg tablet 20 mg PO DAILY water pill 06/29/24 09/06/24 History midodrine 2.5 mg tablet 2.5 mg PO DAILY blood pressure 06/29/24 09/06/24 History polyethylene glycol 3350 17 17 g PO BID PRN constipation 06/29/24 Unknown History gram/dose oral powder (Miralax) sennosides 8.6 mg-docusate sodium 2 tab PO BID PRN constipation 06/29/24 Unknown History 50 mg tablet (Stimulant Laxative Plus) tizanidine 4 mg tablet 4 mg PO 3XD spasm 06/29/24 09/06/24 History acetaminophen 500 mg tablet 1,000 mg (2 x 500 mg) PO Q8 #0 tabs 09/02/24 09/06/24 Rx sennosides 8.6 mg-docusate sodium 2 tab PO BID #60 tabs 09/16/24 Unknown Rx 50 mg tablet (Stimulant Laxative Plus) metoclopramide HCl 10 mg tablet 10 mg PO Q6H PRN nausea and 09/21/24 Unknown Rx (Reglan) vomiting 5 days #20 tabs nystatin 100,000 unit/gram topical 1 applic topical TID #0 grams 02/11/25 Unknown Rx powder oxycodone 5 mg tablet 5 mg PO Q4H PRN PRN pain 4-10 3 02/11/25 Unknown Rx days #12 tabs insulin glargine 100 unit/mL (3 unit subcut DM 03/30/25 Unknown History mL) subcutaneous pen (Lantus Solostar U-100 Insulin) insulin lispro 100 unit/mL 20 unit subcut DAILY DM 03/30/25 Unknown History subcutaneous pen (Humalog KwikPen (U-100) Insulin) insulin lispro 100 unit/mL 27 unit subcut DAILY DM 03/30/25 Unknown History subcutaneous pen (Humalog KwikPen (U-100) Insulin) Allergy/AdvReac Type Severity Reaction Status Date / Time latex Allergy Hives Verified 01/29/25 15:41 Family History Mother Thyroid disorder Diabetes Hypertension Grandmother Diabetes Uncle Diabetes Aunt Diabetes Other Heart disease Surgical History History of cholecystectomy History of appendectomy History of cholecystectomy Surgical History unable to obtain Social History household members: spouse and children housing: house Smoking Status: Unknown if ever smoked alcohol intake: never substance use type: marijuana what type of physical activity do you participate in: none do you feel safe at home: Yes Physical Exam Narrative Intubated. Sedated on vent. Heart sounds 1 and 2 noted. Chest clear to auscultation anteriorly. 2+ bilateral lower extremity edema. Objective Data Vital Signs: Vital Signs Temp Pulse Resp BP Pulse Ox O2 Del Method O2 Flow Rate 98.5 F 16 L 16 124/69 H 96 Mechanical Ventilator 15 03/31/25 10:00 03/31/25 10:00 03/31/25 10:00 03/31/25 10:00 03/31/25 10:00 03/31/25 10:00 03/30/25 15:45 FiO2 30 03/31/25 10:00 Oxygen Flow Rate (L/min) 15 Oxygen Delivery Method Mechanical Ventilator Weight: 195 lb 1.745 oz Body Mass Index (BMI) 31.4 Intake & Output: Intake and Output for Last 24 Hours 03/29/25 03/30/25 03/31/25 23:59 23:59 23:59 Intake Total 967.48 / 1076.93 606.44 / 606.44 Output Total 1300 / 1300 Balance -332.52 / -223.07 606.44 / 606.44 Lab / Micro Data Attestation: I reviewed the patient's lab results. 03/31/25 03:05 03/31/25 03:05 Labs: Laboratory Results - last 24 hr 03/30/25 08:00: APTT 75.4 H 03/30/25 10:53: Sodium 136, Potassium 4.0, Chloride 102, Carbon Dioxide 20.0 L, Anion Gap 13, BUN 32 H, Creatinine 0.78, Estim Creat Clear Calc 96.68, Est GFR (MDRD) Non-Af 90, BUN/Creatinine Ratio 41.4 H, Glucose 450 H, Calcium 9.7, Total Bilirubin 1.75 H, AST 37 H, ALT 19, Alkaline Phosphatase 130 H, Total Creatine Kinase 303 H, [place] [address] H, Total Protein 7.6, Albumin 4.1, Globulin 3.5, Albumin/Globulin Ratio 1.2, Triglycerides 145 03/30/25 11:00: PT 14.0, INR 1.1, APTT 27.8 03/30/25 11:20: Lactic Acid 3.6 H*, Troponin T High Sens 88 H* 03/30/25 11:46: Urine Color Yellow, Urine Clarity Sl. Cloudy, Urine pH 6.0, Ur Specific [place] 1.020, Urine Protein 500 H, Urine Glucose (UA) 1000 H, Urine Ketones Negative, Urine Occult Blood 150 H, Urine Nitrite Negative, Urine Bilirubin Negative, Urine Urobilinogen Normal, Ur Leukocyte Esterase Negative, Urine RBC 0-5 SEEN, Urine WBC 0 SEEN, Ur Squamous Epith Cells 0 SEEN, Urine Bacteria 0 SEEN, Urine Mucus 0 SEEN 03/30/25 13:21: PT 13.9, INR 1.1, APTT 27.7, Troponin T Hi Sens 2 Hr 109 H*, Procalcitonin 0.16 H 03/30/25 16:10: Lactic Acid 2.1 H* 03/30/25 16:55: POC Glucose 406 H 03/30/25 18:41: POC Glucose 389 H 03/30/25 19:30: APTT Cancelled 03/30/25 19:39: POC Glucose 374 H 03/30/25 21:46: POC Glucose 338 H 03/31/25 00:11: POC Glucose 299 H 03/31/25 03:05: WBC 10.8, RBC 3.30 L, Hgb 9.0 L, Hct 27.6 L, MCV 83.6, MCH 27.3, MCHC 32.6, RDW Std Deviation 43.8, RDW Coeff of [place] 14.3, Plt Count 210, MPV 9.6, Immature Gran % (Auto) 0.600, Neut % (Auto) 85.9 H, Lymph % (Auto) 6.9 L, [place] % (Auto) 6.5, Eos % (Auto) 0.0, Baso % (Auto) 0.1, Absolute Neuts (auto) 9.3 H, Absolute Lymphs (auto) 0.74 L, Nucleated RBC % 0, APTT 108.8 H*, Sodium 141, Potassium 3.8, Chloride 106, Carbon Dioxide 23.9, Anion Gap 10, BUN 39 H, Creatinine 1.01, Estim Creat Clear Calc 72.18, Est GFR (MDRD) Non-Af 67, BUN/Creatinine Ratio 38.6 H, Glucose 286 H, Calcium 9.2, Total Bilirubin 1.06, AST 30, ALT 14, Alkaline Phosphatase 101, Total Protein 6.5, Albumin 3.6, Globulin 2.9, Albumin/Globulin Ratio 1.2 03/31/25 05:21: POC Glucose 227 H 03/31/25 08:28: POC Glucose 179 H 03/31/25 08:30: APTT 51.4 H Micro: Microbiology 03/31/25 08:30 Nasal Secretion MRSA (PCR) - Final 03/30/25 16:00 Sputum, Induced/Lukens Gram Stain - Final 03/30/25 11:46 Urine Catheter - Hathaway Legionella Antigen - Final 03/30/25 11:46 Urine Catheter - Hathaway Streptococcus pneumoniae Antigen (M - Final 03/30/25 10:41 Mucosa - Nose SARS-CoV-2, Influenza & RSV (PCR) - Final ABG Data ABG results: ABG 03/30/25 17:32 Specimen Type ART Sample Site L Radial pH 7.40 Bicarbonate Actual 21.8 L Total CO2 23 Base Excess -3 L O2 Saturation 87 L O2 % 60.0 ABG pCO2 35.2 ABG pO2 52 L Wilbert Test Positive Respiration Rate 16 O2 Delivery Device Adult Vent Vent Mode AC Tidal Volume 400.0 POC PEEP 5 Rhythm Strip Rhythm Strip: Sinus Rhythm Cardiology Labs/Tests 03/30/25 08:00: APTT 75.4 H 03/30/25 10:53: Sodium 136, Potassium 4.0, Chloride 102, Carbon Dioxide 20.0 L, Anion Gap 13, BUN 32 H, Creatinine 0.78, Est GFR (MDRD) Non-Af 90, BUN/Creatinine Ratio 41.4 H, Glucose 450 H, Calcium 9.7, Total Bilirubin 1.75 H, Triglycerides 145 03/30/25 11:00: PT 14.0, INR 1.1, APTT 27.8 03/30/25 11:20: Lactic Acid 3.6 H* 03/30/25 11:46: Urine Color Yellow, Urine Clarity Sl. Cloudy, Urine pH 6.0, Ur Specific [place] 1.020, Urine Protein 500 H, Urine Glucose (UA) 1000 H, Urine Ketones Negative, Urine Occult Blood 150 H, Urine Nitrite Negative, Urine Bilirubin Negative, Urine Urobilinogen Normal, Ur Leukocyte Esterase Negative, Urine RBC 0-5 SEEN, Urine WBC 0 SEEN 03/30/25 13:21: PT 13.9, INR 1.1, APTT 27.7 03/30/25 16:10: Lactic Acid 2.1 H* 03/30/25 17:32: pH 7.40, Bicarbonate Actual 21.8 L, Base Excess -3 L, O2 Saturation 87 L, ABG pCO2 35.2, ABG pO2 52 L, Wilbert Test Positive 03/30/25 19:30: APTT Cancelled 03/31/25 03:05: WBC 10.8, RBC 3.30 L, Hgb 9.0 L, Hct 27.6 L, MCV 83.6, MCH 27.3, MCHC 32.6, Plt Count 210, MPV 9.6, Immature Gran % (Auto) 0.600, Neut % (Auto) 85.9 H, Lymph % (Auto) 6.9 L, [place] % (Auto) 6.5, Eos % (Auto) 0.0, Baso % (Auto) 0.1, Absolute Neuts (auto) 9.3 H, Nucleated RBC % 0, APTT 108.8 H*, Sodium 141, Potassium 3.8, Chloride 106, Carbon Dioxide 23.9, Anion Gap 10, BUN 39 H, Creatinine 1.01, Est GFR (MDRD) Non-Af 67, BUN/Creatinine Ratio 38.6 H, Glucose 286 H, Calcium 9.2, Total Bilirubin 1.06 03/31/25 08:30: APTT 51.4 H Rhythm: EKG: Admission EKG showed sinus tachycardia with nonspecific intraventricular conduction delay. ECHO: EF 15%. Normal RV. Moderate mitral valve regurgitation. Stress Test: Cardiac Cath: PCI: CT Surgery: Holter monitor: EPS: PPM: CXR: Chest CT Scan: Radiography Diagnostic Testing: Radiology Impression Chest X-Ray 03/30/25 10:26 IMPRESSION: Prominent bilateral airspace disease is seen, predominantly in the mid to lower lung zones. Findings are most concerning for Pulmonary Edema; cannot exclude superimposed pneumonitis. No definite pleural effusion is seen. No pneumothorax is noted. The cardiomediastinal silhouette is stable, without evidence of cardiomegaly. Generalized osteopenia is seen. No interval osseous change is noted. Reading Location: [facility] Chest CTA 03/30/25 11:55 IMPRESSION: There is an enlarged precarinal lymph node measuring 2.3 x 1.4 cm, image 179/265. There is partly occlusive thrombus visible in the proximal right lower lobe pulmonary arteries, image [id number]. There is partly occlusive clot visible to the right upper lobe pulmonary vessels, image 143/265. There is nonocclusive clot visible in the left upper lobe proximal branch vessels, image 161/265. There is diffuse patchy interstitial and alveolar infiltrate with peripheral wedge-shaped consolidation, most severe at the bases. There is a 2.3 cm right pleural effusion. There is a 3.4 cm left pleural effusion. There is a 2 cm right adrenal nodule, Hounsfield units = 43. There is a 1.9 cm left adrenal nodule, Hounsfield units = 28. There is a 2.1 cm cyst at the upper pole of the left kidney. Critical results were discussed with Dr. Thomas by Dr. Gaytan at the time of dictation. [facility] 03/30/25 14:01 Interpretation Summary Moderately dilated left ventricular cavity. Severe generalized hypokinesis with apical akinesis. Estimated LVEF 20%. At least stage I diastolic dysfunction. The left atrium is moderately enlarged. Moderate (2+) mitral valve insufficiency. Trivial pericardial effusion. The study was technically difficult. Ordering Physician: Jonas Justin Performed By: Vaughn Waters RCS Chest X-Ray 03/30/25 16:05 IMPRESSION: 1. Endotracheal tube tip 5.1 cm above the keanu. 2. Enteric tube appears appropriately positioned, but distal tip not well-visualized. 3. Unchanged small bilateral pleural effusions and perihilar edema/consolidation. Reading Location: [facility] Chest X-Ray 03/30/25 23:30 IMPRESSION: Support lines/tubes in appropriate positioning, as above. Unchanged small pleural effusions and bilateral patchy airspace opacities. Reading Location: [facility] Chest X-Ray 03/31/25 08:25 IMPRESSION: As above. Reading Location: [id number] Risk Score for UA/STEMI Assesmment (YES = 1) Risk Stratification Applicable: No
[2025-03-31] MEDS: Propofol 10MG/Ml 1,000 MG/100 ML Bottle 10.6 MG CONT INF (13:40)
--- NOTE | 2025-03-31 14:16 | CHAPLAIN ---
Type of Pastoral Visit _x__ Initial Visit ___ Follow-up Visit ___ On-call Visit ___ General Patient Visit ___ Spiritual Assessment ___ Family Conference ___ Bereavement ___ Rapid Response ___ Code Blue ___ Other (describe below) Pastoral Care Referral From ___ Patient ___ Family ___ Nurse ___ Physician ___ Manager Relocation ___ Line Haul Driver _x__ Other (describe below) Sacrament/Intervention ___ Active listening ___ Anointing ___ Christianity ___ Bereavement ___ Communion ___ Luz exploration ___ ___ Life review _x__ Prayer ___ Reconciliation ___ Sacrament of Sick ___ Supportive presence ___ Wedding ___ Other (describe below) Pastoral Comments patient is intubated; no family is present; left a calling card; silent prayer given
[2025-03-31] MEDS: HEPARIN/D5w 25,000 UNITS 25,000 UNITS/250 ML IV.SOLN. 8.4 UNITS CONT INF (15:09)
[2025-03-31 15:39] LABS: Partial Thromboplast Time 60.0 Seconds (24.1-36.2)
[2025-03-31] MEDS: Propofol 10MG/Ml 1,000 MG/100 ML Bottle 13.3 MG CONT INF (21:14)
[2025-03-31] MEDS: fentaNYL drip 100 ML 10 MCG CONT INF (21:22)
[2025-03-31 21:52] LABS: Partial Thromboplast Time 56.7 Seconds (24.1-36.2)
[2025-04-01] VITALS (35 sets, daily range): BP systolic 77–159; BP diastolic 52–80; PULSE 66–105; RESP 16–25; TEMP 36–37.3; O2SAT 94–99; BMI 31.1
[2025-04-01] MEDS: CHLORHEXIDINE GLUC 2% CLOTH 1 EACH TOWELETTE TOPICAL (00:46)
[2025-04-01] MEDS: Propofol 10MG/Ml 1,000 MG/100 ML Bottle 13.3 MG CONT INF (03:21)
[2025-04-01] MEDS: 0.9% Saline Lock 10 ML Syringe IV ×4 (03:21→23:10)
[2025-04-01 03:34] LABS: Hematocrit 25.9 % (37-47); Hemoglobin 8.4 g/dL (12.0-15.0); Immature Granulocytes Count 0.040 X10^3/uL (0.0-0.0); Mean Corp Hgb Conc 32.4 g/dL (32-36); Mean Corpuscular Volume 83.8 fL (81-99); Mean Platelet Vol. 9.7 fl (6.2-12.0); NRBC Flagged by Analyzer 0 % (0-5); Platelet Count 200 K/mm3 (150-450); RBC Distribution Width CV 14.6 % (11.6-14.6); RBC Distribution Width SD 45.0 fl (35.1-43.9); Red Blood Count 3.09 M/mm3 (4.2-5.4); White Blood Count 11.2 K/mm3 (4.4-11.0)
[2025-04-01 03:50] LABS: Partial Thromboplast Time 58.1 Seconds (24.1-36.2)
[2025-04-01 04:08] LABS: Anion Gap 11 (5-15); BUN 53 mg/dL (4-19); BUN/Creat Ratio 40.2 RATIO (10-20); Calcium,Total 8.9 mg/dL (7.6-11.0); Carbon Dioxide 25.0 mmol/L (21.0-32.0); Chloride 107 mmol/L (98-108); Estimated Creatinine Clearance 55.04 ml/min (50-250); Glucose 81 mg/dL (70-99); Magnesium 2.1 mg/dL (1.5-2.2)
[2025-04-01] MEDS: Piperacil/Tazobactam 3.375 GM in 0.9% Normal Saline (50mL MB+) 50 ML IV ×3 (05:20→22:16)
[2025-04-01] MEDS: Potassium Chloride 20mEq/100mL 20 MEQ/100 ML IV.SOLN. 100 MEQ IV BOLUS ×2 (05:20→06:21)
--- NOTE | 2025-04-01 05:49 | PCM.PN.INT ---
Assessment & Plan Assessment/Plan (1) Acute on chronic HFrEF (heart failure with reduced ejection fraction): (2) Bilateral pulmonary embolism: (3) Acute hypoxemic respiratory failure: PLAN: Plan RECOMMENDATIONS: 1. Continue assist-control mode of mechanical ventilation. Continue to wean FiO2 and PEEP as tolerated. 2. Continue empiric antimicrobials, pending infectious workup. 3. Hold diuretics given interval increase in creatinine. Continue with aggressive electrolyte repletion. 4. Continue weight-based heparin infusion. 5. Continue propofol and fentanyl for sedation. Goal to maintain a RASS of -1 to 1. 6. Continue appropriate GI prophylaxis. 7. Plan to repeat spontaneous awakening and breathing trial again tomorrow morning. IMPRESSIONS: 1. Acute hypoxemic respiratory failure Most likely multifactorial in etiology with acute decompensated heart failure, pulmonary emboli and possible pneumonia contributing. The patient was ultimately intubated as a consequence of the aforementioned presentation. She will be maintained on assist-control mode of mechanical ventilation, with a goal to wean FiO2 and PEEP to maintain saturations at or above 90%. She will be continued on a weight-based heparin infusion. Given the patient's significant diuresis over the last 24 hours coupled with her interval increase in creatinine, will hold Lasix today. Given that underlying pneumonia remains a possibility, we will continue empiric antimicrobials, pending culture data. Will proceed with another attempt at a spontaneous awakening and breathing trial again tomorrow morning. 2. Acute decompensated heart failure Continue current medical management, as outlined above. The patient has a longstanding history of chronic combined congestive heart failure. 3. Sepsis The patient presented with sepsis due to possible pneumonia with acute sepsis related organ dysfunction as evidenced by lactic acidemia and acute respiratory failure requiring invasive mechanical ventilatory support. The patient did not receive full sepsis related volume resuscitation over concerns for volume overload in the setting of CHF. Antimicrobials will be continued, pending further infectious workup. The patient remains otherwise hemodynamically stable. 4. History of chronic GERD/diabetes mellitus/gastroparesis/diabetic neuropathy/coronary artery disease/hyperlipidemia/peripheral vascular disease/depression Complicates care, management, recovery and prognosis. Continue supportive care as noted above. Will continue to monitor blood glucose levels and continue basal and sliding scale insulin coverage, as needed. TIME: 34 minutes of critical care time, independent of procedures, was spent addressing the patient's acute hypoxemic respiratory failure, acute decompensated heart failure, sepsis, review of all data and collaboration with the care team. Subjective Subjective The patient was seen and examined at the bedside this morning. Events from the last 24 hours have been reviewed. The patient is currently afebrile, hemodynamically stable and maintaining appropriate oxygen saturations on assist-control mode of mechanical ventilation with an FiO2 requirement of 30% and PEEP of 5. White blood cell count this morning was noted to be 11,000 with a hemoglobin of 8.4 g/dL. Potassium is low at 2.7 with a creatinine of 1.32. While the patient initially did okay with a spontaneous breathing trial this morning, she eventually developed emesis around the endotracheal tube and became increasingly tachycardic and hypoxemic. Therefore, the spontaneous breathing trial was terminated. Objective Data Objective Data The patient's most recent lab work, culture data and imaging studies have all been personally reviewed. Sputum, blood and urine cultures are pending. Surface echocardiogram demonstrated moderately dilated LV with severe global hypokinesis and an ejection fraction of 20%. Vital Signs: Vital Signs Temp Pulse Resp BP Pulse Ox O2 Del Method O2 Flow Rate 97.0 F L 67 16 91/53 L 96 Mechanical Ventilator 15 04/01/25 05:00 04/01/25 05:00 04/01/25 05:00 04/01/25 05:00 04/01/25 05:00 04/01/25 05:00 03/30/25 15:45 FiO2 30 04/01/25 05:00 Oxygen Flow Rate (L/min) 15 Oxygen Delivery Method Mechanical Ventilator Weight: 193 lb 12.581 oz Body Mass Index (BMI) 31.1 Intake & Output: Intake and Output for Last 24 Hours 03/30/25 03/31/25 04/01/25 23:59 23:59 23:59 Intake Total 967.48 / 1076.93 2086.86 / 2120.16 252.69 / 252.69 Output Total 1300 / 1300 1750 / 1750 1100 / 1100 Balance -332.52 / -223.07 336.86 / 370.16 -847.31 / -847.31 Lab / Micro Data Attestation: I reviewed the patient's lab results. 04/01/25 03:26 04/01/25 03:26 Labs: Laboratory Results - last 24 hr 03/31/25 05:21: POC Glucose 227 H 03/31/25 08:28: POC Glucose 179 H 03/31/25 08:30: APTT 51.4 H 03/31/25 11:31: POC Glucose 157 H 03/31/25 15:15: APTT 60.0 H 03/31/25 17:03: POC Glucose 108 H 03/31/25 21:31: APTT 56.7 H 03/31/25 22:28: POC Glucose 89 04/01/25 00:27: POC Glucose 84 04/01/25 03:26: WBC 11.2 H, RBC 3.09 L, Hgb 8.4 L, Hct 25.9 L, MCV 83.8, MCH 27.2, MCHC 32.4, RDW Std Deviation 45.0 H, RDW Coeff of [place] 14.6, Plt Count 200, MPV 9.7, Immature Gran % (Auto) 0.400, Neut % (Auto) 71.9 H, Lymph % (Auto) 18.8 L, [place] % (Auto) 7.9, Eos % (Auto) 0.6, Baso % (Auto) 0.4, Absolute Neuts (auto) 8.1 H, Absolute Lymphs (auto) 2.11, Nucleated RBC % 0, APTT 58.1 H, Sodium 143, Potassium 2.7 L*, Chloride 107, Carbon Dioxide 25.0, Anion Gap 11, BUN 53 H, Creatinine 1.32 H, Estim Creat Clear Calc 55.04, Est GFR (MDRD) Non-Af 48 L, BUN/Creatinine Ratio 40.2 H, Glucose 81, Calcium 8.9, Phosphorus 3.6, Magnesium 2.1 Micro: Microbiology 03/31/25 08:30 Nasal Secretion MRSA (PCR) - Final 03/30/25 16:00 Sputum, Induced/Lukens Gram Stain - Final 03/30/25 11:46 Urine Catheter - Hathaway Legionella Antigen - Final 03/30/25 11:46 Urine Catheter - [place]athaway Streptococcus pneumoniae Antigen (M - Final 03/30/25 10:41 Mucosa - Nose SARS-CoV-2, Influenza & RSV (PCR) - Final Radiography Diagnostic Testing: Radiology Impression Venous Doppler Study 03/30/25 14:04 Interpretation Summary Deep veins of the bilateral lower extremities are patent and compressible segmentally. There is no evidence of bilateral lower extremity deep vein thrombosis. The bilateral great saphenous veins appear patent and compressible segmentally. Ordering Physician: Jonas Justin Referring Physician: Zohreh Pratt Performed By: Tiffany Rosado, EDMOND, RVT Chest X-Ray 03/31/25 08:25 IMPRESSION: As above. Reading Location: [id number] Rhythm Strip Rhythm Strip: Sinus Rhythm Physical Exam Const Constitutional Narrative: Intubated, sedated and mechanically ventilated. No ventilator dyssynchrony noted. HEENT normocephalic and head/scalp atraumatic Mouth: endotracheal tube in place and OG tube in place Eyes PERRL, conjunctivae normal and no scleral icterus Neck supple General: trachea midline Chest inspection of chest normal Resp Auscultation: diminished lung sounds; Negative for rales, rhonchi or wheezes Cardio regular rate and regular rhythm GI normal to inspection, nondistended, normoactive bowel sounds Extremity General Extremity: edema bilateral lower extremity; Negative for clubbing Skin no rashes or lesions noted Neuro Sensorium / Orientation: sedated on vent Charges/Coding Procedures Hospitalists Procedures: 02243 Critical Care 1st Hr
--- NOTE | 2025-04-01 07:16 | PCM.PN.HOSP ---
Reason for Visit Chief Complaint: Shortness of breath Subjective Subjective Patient seen remains on the vent. Attempt at weaning this morning was unsuccessful after patient apparently had an emesis. WBC count remains elevated at 11.2 hemoglobin down to 8.4 with potassium of 2.7 Objective Data Objective Data Vital Signs: Vital Signs Temp Pulse Resp BP Pulse Ox O2 Del Method O2 Flow Rate 97.3 F L 67 16 87/53 L 95 Mechanical Ventilator 15 04/01/25 07:00 04/01/25 07:00 04/01/25 07:00 04/01/25 07:00 04/01/25 07:00 04/01/25 07:00 03/30/25 15:45 FiO2 30 04/01/25 07:00 Oxygen Flow Rate (L/min) 15 Oxygen Delivery Method Mechanical Ventilator Weight: 87.9 kg Body Mass Index (BMI) 31.1 Intake & Output: Intake and Output for Last 24 Hours 03/30/25 03/31/25 04/01/25 23:59 23:59 23:59 Intake Total 967.48 / 1076.93 2086.86 / 2120.16 524.09 / 524.09 Output Total 1300 / 1300 1750 / 1750 1100 / 1100 Balance -332.52 / -223.07 336.86 / 370.16 -575.91 / -575.91 Lab / Micro Data 04/01/25 03:26 04/01/25 03:26 Labs: Laboratory Results - last 24 hr 03/31/25 05:21: POC Glucose 227 H 03/31/25 08:28: POC Glucose 179 H 03/31/25 08:30: APTT 51.4 H 03/31/25 11:31: POC Glucose 157 H 03/31/25 15:15: APTT 60.0 H 03/31/25 17:03: POC Glucose 108 H 03/31/25 21:31: APTT 56.7 H 03/31/25 22:28: POC Glucose 89 04/01/25 00:27: POC Glucose 84 04/01/25 03:26: WBC 11.2 H, RBC 3.09 L, Hgb 8.4 L, Hct 25.9 L, MCV 83.8, MCH 27.2, MCHC 32.4, RDW Std Deviation 45.0 H, RDW Coeff of Spencer 14.6, Plt Count 200, MPV 9.7, Immature Gran % (Auto) 0.400, Neut % (Auto) 71.9 H, Lymph % (Auto) 18.8 L, [place] % (Auto) 7.9, Eos % (Auto) 0.6, Baso % (Auto) 0.4, Absolute Neuts (auto) 8.1 H, Absolute Lymphs (auto) 2.11, Nucleated RBC % 0, APTT 58.1 H, Sodium 143, Potassium 2.7 L*, Chloride 107, Carbon Dioxide 25.0, Anion Gap 11, BUN 53 H, Creatinine 1.32 H, Estim Creat Clear Calc 55.04, Est GFR (MDRD) Non-Af 48 L, BUN/Creatinine Ratio 40.2 H, Glucose 81, Calcium 8.9, Phosphorus 3.6, Magnesium 2.1 04/01/25 05:24: POC Glucose 69 L 04/01/25 05:55: POC Glucose 124 H Micro: Microbiology 03/31/25 08:30 Nasal Secretion MRSA (PCR) - Final 03/30/25 16:00 Sputum, Induced/Lukens Gram Stain - Final 03/30/25 11:46 Urine Catheter - Hathaway Legionella Antigen - Final 03/30/25 11:46 Urine Catheter - Hathaway Streptococcus pneumoniae Antigen (M - Final 03/30/25 10:41 Mucosa - Nose SARS-CoV-2, Influenza & RSV (PCR) - Final Radiography Diagnostic Testing: Radiology Impression Venous Doppler Study 03/30/25 14:04 Interpretation Summary Deep veins of the bilateral lower extremities are patent and compressible segmentally. There is no evidence of bilateral lower extremity deep vein thrombosis. The bilateral great saphenous veins appear patent and compressible segmentally. Ordering Physician: Jonas Justin Referring Physician: Zohreh Pratt Performed By: Tiffany Rosado, RUDDYCS, RVT Chest X-Ray 03/31/25 08:25 IMPRESSION: As above. Reading Location: [id number] Rhythm Strip Rhythm Strip: Sinus Rhythm Physical Exam Narrative GENERAL: Awake on the vent on the vent HEENT: Atraumatic; normocephalic EYES; Anicteric, Normal Conjunctiva NECK; supple, normal thyroid, RESPIRATORY: Diminished to auscultation CARDIOVASCULAR: Regular S1 S2, GI: soft, normoactive bowel sounds, : No Renal angle tenderness; EXTREMITIES: Bipedal edema, no clubbing, MUSCULOSKELETAL: Transmetatarsal amputation of the left foot NEURO: Unable to assess SKIN: No Rash Assessment & Plan Assessment/Plan (1) Acute hypoxemic respiratory failure: (2) Acute on chronic HFrEF (heart failure with reduced ejection fraction): (3) Bilateral pulmonary embolism: PLAN: Plan Patient is a 54-year-old lady who presented to the emergency department with progressive shortness of breath studies demonstrated bilateral PE with diffuse patchy interstitial alveolar infiltrates with peripheral wedge-shaped consolidation most severe at the lung bases. Patient was initially placed on noninvasive ventilation BiPAP however respiratory status deteriorated resulting in patient being intubated and admitted to the intensive care unit 1. Acute hypoxic respiratory failure ? Due to combination of bilateral pulmonary embolism, acute congestive heart failure with reduced ejection fraction, suspected pneumonia. Patient was initially manage on BiPAP however respiratory status continued to deteriorate resulting in patient being intubated and subsequently admitted to the intensive care unit. Consult was placed to client manager/pulmonary medicine. Management of patient events deferred ? 04/01/2025; attempt at weaning this morning was unsuccessful after patient had a bout of emesis. 2. Acute bilateral pulmonary embolism ? With suspected pulmonary infarction. CT of the chest obtained did show partly occlusive thrombus visible in the proximal right lower lobe pulmonary arteries, partly occlusive clot visible to the right upper lobe pulmonary vessels, nonocclusive clot visible in the left upper lobe proximal branch vessels, diffuse patchy interstitial and alveolar infiltrate with peripheral wedge-shaped consolidation, most severe at the bases.Patient started on heparin ? 04/01/2025; patient remains on heparin 3. Acute on chronic congestive heart failure with reduced ejection fraction ?2D echo demonstrated estimated LVEF of 20% with moderately enlarged left atrium, moderate mitral valve insufficiency and trivial pericardial effusion. Patient previous EF was 30%. Patient is on Aldactone as well as furosemide. Consult placed to cardiology ? 04/01/2025; patient was seen in consultation by Dr. Fajardo with cardiology case discussed with him plan is to resume patient Entresto when hemodynamically stable 4. Sepsis secondary to pneumonia ? Patient was found to have elevated lactic acid level with evidence of endorgan dysfunction?respiratory failure. Patient did receive IV antibiotics cultures sent continued with antibiotics pending receipt of culture results 5. Diabetes mellitus type 2 with complications including diabetic neuropathy as well as gastroparesis ? Patient recent hemoglobin A1c was 13.2 on 01/29/2025. Glucose levels were markedly elevated on admission. Patient was started on long-acting insulin in addition to Accu-Cheks every 6 hours with sliding scale coverage. Subsequent adjustment made to patient long-acting insulin ? 04/01/2025; patient did develop hypoglycemia following adjustments of her insulin regimen made further adjustment by decreasing her dose. Plan is to continue to monitor and adjust dose as needed 6. Peripheral arterial disease ? Previous stent about 1 year ago Patient is on recommended medications including dual antiplatelet therapy as well as statin therapy. Plan is for patient to follow-up as outpatient 7. GERD/possible esophagitis ? Patient is on PPI 8. Chronic hypotension ? Patient is on midodrine. Held on admission 9. Dyslipidemia ?Patient is on statin therapy, continued at home dose 10. Tobacco dependence Plan is to counsellors patient on cessation once of the event 11. Chronic back pain ? Secondary to chronic compression fractures plan is to continue with PT OT as tolerated 12. Anemia ? Secondary to chronic disorder monitoring H&H and transfuse if patient becomes symptomatic or hemoglobin falls below 7 13. History of depression with anxiety ? Patient is on escitalopram plan is to resume following extubation 14. Vitamin D deficiency ? Patient is on vitamin D supplementation 15. Hypokalemia ? Corrected per protocol repeat potassium levels ordered for a.m. Time spent in the patient's overall evaluation,decision-making process, review of diagnostic data, adjustment of management, discussion with other providers, nursing nursing and ancillary staff involved in patient's care documentation, 50 Minutes Charges/Coding Visit Charges Inpatient E&M: 82056 Subs Hosp L3
[2025-04-01] MEDS: Chlorhexidine 15 ML PO ×2 (07:26→22:19)
[2025-04-01] MEDS: Senna/Docusate Sodium 1 Tablet 2 TABLET PO ×2 (07:26→22:20)
[2025-04-01] MEDS: Pantoprazole Sodium 40 MG in 0.9% Normal Saline (100mL MB+) 100 ML 330 MG IV (07:26)
[2025-04-01] MEDS: Potassium Chloride Oral Tablet 20 MEQ 40 MEQ GT (08:05)
--- NOTE | 2025-04-01 08:38 | CPS ---
Dr. Marinelli placed patient on SBT, called by RN to place patient back on AC due to patient throwing up and getting aggitated.
[2025-04-01 09:19] LABS: Potassium 3.3 mmol/L (3.3-5.1)
[2025-04-01] MEDS: fentaNYL drip 100 ML 12.5 MCG CONT INF ×2 (09:20→17:45)
[2025-04-01] MEDS: Vital High Protein 1,000 ML 10 ML GT (10:49)
[2025-04-01] MEDS: Propofol 10MG/Ml 1,000 MG/100 ML Bottle 13.2 MG CONT INF ×3 (11:00→23:07)
--- NOTE | 2025-04-01 11:48 | CHAPLAIN ---
Type of Pastoral Visit ___ Initial Visit ___ Follow-up Visit ___ On-call Visit ___ General Patient Visit ___ Spiritual Assessment ___ Family Conference ___ Bereavement ___ Rapid Response ___ Code Blue ___ Other (describe below) Pastoral Care Referral From ___ Patient ___ Family ___ Nurse ___ Physician ___ Store Loss Prevention Manager ___ Sustainable Landscape Architect ___ Other (describe below) Sacrament/Intervention ___ Active listening ___ Anointing ___ Yazdanism ___ Bereavement ___ Communion ___ Luz exploration ___ ___ Life review ___ Prayer ___ Reconciliation ___ Sacrament of Sick ___ Supportive presence ___ Wedding ___ Other (describe below) Pastoral Comments patient continues on the vent; family members are not present today and have not come in since yesterday morning per RN
[2025-04-01] MEDS: HEPARIN/D5w 25,000 UNITS 25,000 UNITS/250 ML IV.SOLN. 8.4 UNITS CONT INF (17:50)
[2025-04-01] MEDS: 0.9% Normal Saline (250mL Bag) 250 ML 15 ML IV (22:15)
[2025-04-02] VITALS (33 sets, daily range): BP systolic 100–170; BP diastolic 54–87; PULSE 75–106; RESP 13–24; TEMP 36.8–37.8; O2SAT 88–98; BMI 30.9
[2025-04-02 00:19] LABS: Potassium 2.7 mmol/L (3.3-5.1)
[2025-04-02] MEDS: fentaNYL drip 100 ML 12.5 MCG CONT INF (01:46)
[2025-04-02] MEDS: CHLORHEXIDINE GLUC 2% CLOTH 1 EACH TOWELETTE TOPICAL (01:47)
[2025-04-02 03:33] LABS: Hematocrit 25.7 % (37-47); Hemoglobin 8.3 g/dL (12.0-15.0); Immature Granulocytes Count 0.030 X10^3/uL (0.0-0.0); Mean Corp Hgb Conc 32.3 g/dL (32-36); Mean Corpuscular Volume 84.5 fL (81-99); Mean Platelet Vol. 9.4 fl (6.2-12.0); NRBC Flagged by Analyzer 0 % (0-5); Platelet Count 183 K/mm3 (150-450); RBC Distribution Width CV 14.5 % (11.6-14.6); RBC Distribution Width SD 44.7 fl (35.1-43.9); Red Blood Count 3.04 M/mm3 (4.2-5.4); White Blood Count 9.2 K/mm3 (4.4-11.0)
[2025-04-02 03:58] LABS: Anion Gap 12 (5-15); BUN 55 mg/dL (4-19); BUN/Creat Ratio 42.2 RATIO (10-20); Calcium,Total 8.5 mg/dL (7.6-11.0); Carbon Dioxide 22.4 mmol/L (21.0-32.0); Chloride 106 mmol/L (98-108); Estimated Creatinine Clearance 56.32 ml/min (50-250); Glucose 167 mg/dL (70-99); Potassium 3.3 mmol/L (3.3-5.1)
[2025-04-02 04:46] LABS: Partial Thromboplast Time 40.3 Seconds (24.1-36.2)
[2025-04-02] MEDS: Propofol 10MG/Ml 1,000 MG/100 ML Bottle 13.2 MG CONT INF (05:00)
[2025-04-02] MEDS: 0.9% Saline Lock 10 ML Syringe IV ×2 (05:01→07:00)
[2025-04-02] MEDS: Piperacil/Tazobactam 3.375 GM in 0.9% Normal Saline (50mL MB+) 50 ML IV (05:02)
[2025-04-02] MEDS: Heparin Nomogram Adjustment 5,000 UNIT/ML VIAL IV (05:02)
--- NOTE | 2025-04-02 05:47 | PN.CC_ITS ---
Assessment & Plan Assessment/Plan (1) Acute on chronic HFrEF (heart failure with reduced ejection fraction): (2) Bilateral pulmonary embolism: (3) Acute hypoxemic respiratory failure: PLAN: Plan RECOMMENDATIONS: 1. Proceed with a trial of extubation this morning. 2. Once extubated, wean supplemental oxygen to maintain saturations at or above 90%. 3. Continue antimicrobials, based upon cultures and sensitivities. 4. Perform bedside swallow evaluation with dietary advancement as tolerated. 5. Continue weight-based heparin infusion for now. 6. Encourage incentive spirometer use and mobilize patient as tolerated. IMPRESSIONS: 1. Acute hypoxemic respiratory failure Most likely multifactorial in etiology with acute decompensated heart failure, pulmonary emboli and pneumonia contributing. The patient was ultimately intubated as a consequence of the aforementioned presentation. With supportive care, including invasive mechanical ventilatory support along with antimicrobials and volume optimization with diuretics, the patient was able to be extubated on April 02. Plan to continue supplemental oxygen to maintain saturations at or above 90%. Antimicrobials will be continued based upon cultures and sensitivities. For now, the patient will be continued on a weight- based heparin infusion. She can be transition to a Xa inhibitor once the patient's diet has been advanced. 2. Acute decompensated heart failure Continue current medical management, as outlined above. The patient has a longstanding history of chronic combined congestive heart failure. 3. Sepsis The patient presented with sepsis due to possible pneumonia with acute sepsis related organ dysfunction as evidenced by lactic acidemia and acute respiratory failure requiring invasive mechanical ventilatory support. The patient did not receive full sepsis related volume resuscitation over concerns for volume overload in the setting of CHF. Antimicrobials will be continued, based upon cultures and sensitivities. The patient remains otherwise hemodynamically stable. 4. History of chronic GERD/diabetes mellitus/gastroparesis/diabetic neuropathy/coronary artery disease/hyperlipidemia/peripheral vascular disease/depression Complicates care, management, recovery and prognosis. Continue supportive care as noted above. Will continue to monitor blood glucose levels and continue basal and sliding scale insulin coverage, as needed. Bedside swallow evaluation will be completed with dietary advancement as tolerated. Physical therapy to work with the patient. TIME: 36 minutes of critical care time, independent of procedures, was spent addressing the patient's acute hypoxemic respiratory failure, acute decompensated heart failure, sepsis, review of all data and collaboration with the care team. Subjective Subjective The patient was seen and examined at the bedside this morning. Events from the last 24 hours have been reviewed. The patient is currently afebrile, hemodynamically stable and maintaining appropriate oxygen saturations on assist- control mode of mechanical ventilation with an FiO2 requirement of 30% and PEEP of 5. No overnight issues were identified. White blood cell count is normal. Hemoglobin and platelet count are stable. Creatinine is stable at 1.29. The patient did complete a spontaneous awakening trial this morning. She is alert and appropriately able to follow simple commands. Therefore, a spontaneous breathing trial was completed, which the patient passed without complication. Accordingly, the patient was extubated and placed on nasal cannula oxygen. Objective Data Objective Data The patient's most recent lab work, culture data and imaging studies have all been personally reviewed. Sputum, blood and urine cultures are pending. Surface echocardiogram demonstrated moderately dilated LV with severe global hypokinesis and an ejection fraction of 20%. Vital Signs: Vital Signs Temp Pulse Resp BP Pulse Ox O2 Del Method O2 Flow Rate 98.4 F 79 15 122/62 H 98 Mechanical Ventilator 15 04/02/25 05:00 04/02/25 05:00 04/02/25 05:00 04/02/25 05:00 04/02/25 05:00 04/02/25 05:00 03/30/25 15:45 FiO2 30 04/02/25 05:00 Oxygen Flow Rate (L/min) 15 Oxygen Delivery Method Mechanical Ventilator Weight: 192 lb 14.472 oz Body Mass Index (BMI) 30.9 Intake & Output: Intake and Output for Last 24 Hours 03/31/25 04/01/25 04/02/25 23:59 23:59 23:59 Intake Total 2086.86 / 2120.16 1911.54 / 2000.70 413.19 / 413.19 Output Total 1750 / 1750 3095 / 3095 250 / 250 Balance 336.86 / 370.16 -1183.46 / -1094.30 163.19 / 163.19 Lab / Micro Data Attestation: I reviewed the patient's lab results. 04/02/25 03:28 04/02/25 03:28 Labs: Laboratory Results - last 24 hr 04/01/25 03:26: Potassium 2.7 L* 04/01/25 05:24: POC Glucose 69 L 04/01/25 05:55: POC Glucose 124 H 04/01/25 08:50: Potassium 3.3 04/01/25 10:51: POC Glucose 97 04/01/25 16:31: POC Glucose 113 H 04/01/25 22:24: POC Glucose 118 H 04/02/25 03:28: WBC 9.2, RBC 3.04 L, Hgb 8.3 L, Hct 25.7 L, MCV 84.5, MCH 27.3, MCHC 32.3, RDW Std Deviation 44.7 H, RDW Coeff of Spencer 14.5, Plt Count 183, MPV 9.4, Immature Gran % (Auto) 0.300, Neut % (Auto) 71.2 H, Lymph % (Auto) 18.3 L, [place] % (Auto) 8.5, Eos % (Auto) 1.2, Baso % (Auto) 0.5, Absolute Neuts (auto) 6.5, Absolute Lymphs (auto) 1.67, Nucleated RBC % 0, APTT 40.3 H, Sodium 141, Potassium 3.3, Chloride 106, Carbon Dioxide 22.4, Anion Gap 12, BUN 55 H, C reatinine 1.29 H, Estim Creat Clear Calc 56.32, Est GFR (MDRD) Non-Af 50 L, B UN/Creatinine Ratio 42.2 H, Glucose 167 H, Calcium 8.5 04/02/25 05:01: POC Glucose 151 H Micro: Microbiology 03/30/25 11:20 Blood Culture (Wb) - Left Wrist Blood Culture - Preliminary No growth in 48 hours. 03/30/25 11:00 Blood Culture (Wb) - Chest Blood Culture - Preliminary No growth in 48 hours. 03/30/25 11:46 Urine, Catheterized Urine Culture - Final Culture exhibits no growth. 03/30/25 16:00 Sputum, Induced/Lukens Gram Stain - Final 03/30/25 16:00 Sputum, Induced/Lukens Respiratory Culture - Preliminary Staphylococcus aureus 03/31/25 08:30 Nasal Secretion MRSA (PCR) - Final 03/30/25 11:46 Urine Catheter - Hathaway Legionella Antigen - Final 03/30/25 11:46 Urine Catheter - Hathaway Streptococcus pneumoniae Antigen (M - Final 03/30/25 10:41 Mucosa - Nose SARS-CoV-2, Influenza & RSV (PCR) - Final Radiography Diagnostic Testing: Radiology Impression Venous Doppler Study 03/30/25 14:04 Interpretation Summary Deep veins of the bilateral lower extremities are patent and compressible segmentally. There is no evidence of bilateral lower extremity deep vein thrombosis. The bilateral great saphenous veins appear patent and compressible segmentally. Ordering Physician: Jonas Justin Referring Physician: Zohreh Pratt Performed By: Tiffany Rosado, EDMOND, RVT Chest X-Ray 03/31/25 08:25 IMPRESSION: As above. Reading Location: [facility] Rhythm Strip Rhythm Strip: Sinus Rhythm Physical Exam Const Constitutional Narrative: Remains intubated and mechanically ventilated. Currently tolerating spontaneous mode of mechanical ventilation. HEENT normocephalic and head/scalp atraumatic Mouth: endotracheal tube in place and OG tube in place Eyes PERRL, conjunctivae normal and no scleral icterus Neck supple General: trachea midline Chest inspection of chest normal Resp Auscultation: diminished lung sounds; Negative for rales, rhonchi or wheezes Cardio regular rate and regular rhythm GI normal to inspection, nondistended, normoactive bowel sounds Extremity General Extremity: edema bilateral lower extremity; Negative for clubbing Skin no rashes or lesions noted Neuro Neuro Narrative: Alert and able to follow simple commands appropriately. Charges/Coding Procedures Hospitalists Procedures: 45946 Critical Care 1st Hr
--- NOTE | 2025-04-02 07:20 | PCM.PN.HOSP ---
Reason for Visit Chief Complaint: Shortness of breath Subjective Subjective Patient seen remains on the vent. Currently undergoing weaning trial Objective Data Objective Data Vital Signs: Vital Signs Temp Pulse Resp BP Pulse Ox O2 Del Method O2 Flow Rate 98.5 F 78 16 106/56 L 97 Mechanical Ventilator 15 04/02/25 06:00 04/02/25 06:00 04/02/25 06:00 04/02/25 06:00 04/02/25 06:00 04/02/25 06:00 03/30/25 15:45 FiO2 30 04/02/25 06:00 Oxygen Flow Rate (L/min) 15 Oxygen Delivery Method Mechanical Ventilator Weight: 87.5 kg Body Mass Index (BMI) 30.9 Intake & Output: Intake and Output for Last 24 Hours 03/31/25 04/01/25 04/02/25 23:59 23:59 23:59 Intake Total 2086.86 / 2120.16 1911.54 / 2000.70 650.22 / 650.22 Output Total 1750 / 1750 3095 / 3095 250 / 250 Balance 336.86 / 370.16 -1183.46 / -1094.30 400.22 / 400.22 Lab / Micro Data 04/02/25 03:28 04/02/25 03:28 Labs: Laboratory Results - last 24 hr 04/01/25 03:26: Potassium 2.7 L* 04/01/25 08:50: Potassium 3.3 04/01/25 10:51: POC Glucose 97 04/01/25 16:31: POC Glucose 113 H 04/01/25 22:24: POC Glucose 118 H 04/02/25 03:28: WBC 9.2, RBC 3.04 L, Hgb 8.3 L, Hct 25.7 L, MCV 84.5, MCH 27.3, MCHC 32.3, RDW Std Deviation 44.7 H, RDW Coeff of Spencer 14.5, Plt Count 183, MPV 9.4, Immature Gran % (Auto) 0.300, Neut % (Auto) 71.2 H, Lymph % (Auto) 18.3 L, Jay % (Auto) 8.5, Eos % (Auto) 1.2, Baso % (Auto) 0.5, Absolute Neuts (auto) 6.5, Absolute Lymphs (auto) 1.67, Nucleated RBC % 0, APTT 40.3 H, Sodium 141, Potassium 3.3, Chloride 106, Carbon Dioxide 22.4, Anion Gap 12, BUN 55 H, Creatinine 1.29 H, Estim Creat Clear Calc 56.32, Est GFR (MDRD) Non-Af 50 L, BUN/Creatinine Ratio 42.2 H, Glucose 167 H, Calcium 8.5 04/02/25 05:01: POC Glucose 151 H Micro: Microbiology 03/30/25 11:20 Blood Culture (Wb) - Left Wrist Blood Culture - Preliminary No growth in 48 hours. 03/30/25 11:00 Blood Culture (Wb) - Chest Blood Culture - Preliminary No growth in 48 hours. 03/30/25 11:46 Urine, Catheterized Urine Culture - Final Culture exhibits no growth. 03/30/25 16:00 Sputum, Induced/Lukens Gram Stain - Final 03/30/25 16:00 Sputum, Induced/Lukens Respiratory Culture - Preliminary Staphylococcus aureus 03/31/25 08:30 Nasal Secretion MRSA (PCR) - Final 03/30/25 11:46 Urine Catheter - Hathaway Legionella Antigen - Final 03/30/25 11:46 Urine Catheter - Hathaway Streptococcus pneumoniae Antigen (M - Final 03/30/25 10:41 Mucosa - Nose SARS-CoV-2, Influenza & RSV (PCR) - Final Rhythm Strip Rhythm Strip: Sinus Rhythm Physical Exam Narrative GENERAL: Awake on the vent on the vent HEENT: Atraumatic; normocephalic EYES; Anicteric, Normal Conjunctiva NECK; supple, normal thyroid, RESPIRATORY: Diminished to auscultation CARDIOVASCULAR: Regular S1 S2, GI: soft, normoactive bowel sounds, : No Renal angle tenderness; EXTREMITIES: Bipedal edema, no clubbing, MUSCULOSKELETAL: Transmetatarsal amputation of the left foot NEURO: Unable to assess SKIN: No Rash Assessment & Plan Assessment/Plan (1) Acute hypoxemic respiratory failure: (2) Acute on chronic HFrEF (heart failure with reduced ejection fraction): (3) Bilateral pulmonary embolism: PLAN: Plan Patient is a 54-year-old lady who presented to the emergency department with progressive shortness of breath studies demonstrated bilateral PE with diffuse patchy interstitial alveolar infiltrates with peripheral wedge-shaped consolidation most severe at the lung bases. Patient was initially placed on noninvasive ventilation BiPAP however respiratory status deteriorated resulting in patient being intubated and admitted to the intensive care unit 1. Acute hypoxic respiratory failure ? Due to combination of bilateral pulmonary embolism, acute congestive heart failure with reduced ejection fraction, suspected pneumonia. Patient was initially manage on BiPAP however respiratory status continued to deteriorate resulting in patient being intubated and subsequently admitted to the intensive care unit. Consult was placed to hasher operator/pulmonary medicine. Management of patient events deferred ? 04/01/2025; attempt at weaning this morning was unsuccessful after patient had a bout of emesis. ? 04/02/2025; patient awake on the vent currently undergoing weaning trial 2. Acute bilateral pulmonary embolism ? With suspected pulmonary infarction. CT of the chest obtained did show partly occlusive thrombus visible in the proximal right lower lobe pulmonary arteries, partly occlusive clot visible to the right upper lobe pulmonary vessels, nonocclusive clot visible in the left upper lobe proximal branch vessels, diffuse patchy interstitial and alveolar infiltrate with peripheral wedge-shaped consolidation, most severe at the bases.Patient started on heparin ? 04/01/2025; patient remains on heparin ? 04/02/2025; patient remains on heparin with plans to transition to DOAC once patient is extubated 3. Acute on chronic congestive heart failure with reduced ejection fraction ?2D echo demonstrated estimated LVEF of 20% with moderately enlarged left atrium, moderate mitral valve insufficiency and trivial pericardial effusion. Patient previous EF was 30%. Patient is on Aldactone as well as furosemide. Consult placed to cardiology ? 04/01/2025; patient was seen in consultation by Dr. Fajardo with cardiology case discussed with him plan is to resume patient Entresto when hemodynamically stable 4. Sepsis secondary to pneumonia ? Patient was found to have elevated lactic acid level with evidence of endorgan dysfunction?respiratory failure. Patient did receive IV antibiotics cultures sent continued with antibiotics pending receipt of culture results ? 04/01/2025 patient sputum cultures positive for MRSA added vancomycin to treatment 5. Diabetes mellitus type 2 with complications including diabetic neuropathy as well as gastroparesis ? Patient recent hemoglobin A1c was 13.2 on 01/29/2025. Glucose levels were markedly elevated on admission. Patient was started on long-acting insulin in addition to Accu-Cheks every 6 hours with sliding scale coverage. Subsequent adjustment made to patient long-acting insulin ? 04/01/2025; patient did develop hypoglycemia following adjustments of her insulin regimen made further adjustment by decreasing her dose. Plan is to continue to monitor and adjust dose as needed 6. Peripheral arterial disease ? Previous stent about 1 year ago Patient is on recommended medications including dual antiplatelet therapy as well as statin therapy. Plan is for patient to follow-up as outpatient 7. GERD/possible esophagitis ? Patient is on PPI 8. Chronic hypotension ? Patient is on midodrine. Held on admission 9. Dyslipidemia ?Patient is on statin therapy, continued at home dose 10. Tobacco dependence Plan is to industrial relations counselor patient on cessation once of the event 11. Chronic back pain ? Secondary to chronic compression fractures plan is to continue with PT OT as tolerated 12. Anemia ? Secondary to chronic disorder monitoring H&H and transfuse if patient becomes symptomatic or hemoglobin falls below 7 ? 04/02/2025; patient hemoglobin remains low at 8.3 13. History of depression with anxiety ? Patient is on escitalopram plan is to resume following extubation 14. Vitamin D deficiency ? Patient is on vitamin D supplementation 15. Hypokalemia ? Corrected per protocol repeat potassium levels ordered for a.m. ? 04/02/2025; potassium remains low additional potassium given Time spent in the patient's overall evaluation,decision-making process, review of diagnostic data, adjustment of management, discussion with other providers, nursing nursing and ancillary staff involved in patient's care documentation, 40 Minutes Charges/Coding Visit Charges Inpatient E&M: 63699 Subs Hosp L2
--- NOTE | 2025-04-02 10:01 | PCM.RX.CS ---
Consult Antibiotic Management Pharmacy has been consulted to manage selected antibiotic: Vancomycin Type of Intervention Type of Consult: New start Suspected Infection Suspected Infection: Pneumonia Prior Doses of Antibiotics Prior Doses of Antibiotics Received/Current Regimen: Previous vancomycin loading dose of 2000 mg given 03/31/25 @ 0900 Labs Labs: Sodium 141 mmol/L (133-145) 04/02/25 03:28 Potassium 3.3 mmol/L (3.3-5.1) 04/02/25 03:28 Chloride 106 mmol/L (98-108) 04/02/25 03:28 Carbon Dioxide 22.4 mmol/L (21.0-32.0) 04/02/25 03:28 Anion Gap 12 (5-15) 04/02/25 03:28 BUN 55 mg/dL (4-19) H 04/02/25 03:28 Creatinine 1.29 mg/dL (0.70-1.20) H 04/02/25 03:28 Est GFR (MDRD) Non-Af 50 (>60) L 04/02/25 03:28 BUN/Creatinine Ratio 42.2 RATIO (10-20) H 04/02/25 03:28 Glucose 167 mg/dL (70-99) H 04/02/25 03:28 Microbiology Microbiology: Microbiology 03/30/25 16:00 Sputum, Induced/Lukens Gram Stain - Final 03/30/25 16:00 Sputum, Induced/Lukens Respiratory Culture - Final Staphylococcus aureus 03/30/25 11:20 Blood Culture (Wb) - Left Wrist Blood Culture - Preliminary No growth in 48 hours. 03/30/25 11:00 Blood Culture (Wb) - Chest Blood Culture - Preliminary No growth in 48 hours. 03/30/25 11:46 Urine, Catheterized Urine Culture - Final Culture exhibits no growth. 03/31/25 08:30 Nasal Secretion MRSA (PCR) - Final 03/30/25 11:46 Urine Catheter - Hathaway Legionella Antigen - Final 03/30/25 11:46 Urine Catheter - Hathaway Streptococcus pneumoniae Antigen (M - Final 03/30/25 10:41 Mucosa - Nose SARS-CoV-2, Influenza & RSV (PCR) - Final Dosing Weight Weight used for dosin.6 kg Estimated Creatinine Clearance Estimated Creatinine Clearance: 56.3 Goal Trough Goal Trough: 15-20 mcg/mL Pharmacy Plan for Drug Dosing Pharmacy Plan for Drug Dosing: Pharmacy Service will continue to monitor and adjust dosing as required. NEW START IV VANCOMYCIN Consulting Physician: Dr. Aaron Indication: Pneumonia Goal Trough: 15-20 SrCr: 1.29 CrCl: 56.3 Comments: Initial MRSA nares resulted negative, but sputum culture resulted with an oxacillin resistant organism. Will restart vancomycin at this time to cover culture results. Vancomycin Dose: 1000 mg Q12H with first dose @ 2200 Pending Level: 04/03/25 @ 2130 Date/Time Labs Ordered Labs to be done on [date and time ordered]: 04/03/25 @ 2130
[2025-04-02] MEDS: Insulin Glargine-YFGN 100 UNIT/ML Pen 20 UNIT SC (10:17)
[2025-04-02] MEDS: Pantoprazole Sodium 40 MG in 0.9% Normal Saline (100mL MB+) 100 ML 330 MG IV (10:19)
[2025-04-02] MEDS: Senna/Docusate Sodium 1 Tablet 2 TABLET PO ×2 (10:20→20:59)
[2025-04-02] MEDS: Vancomycin HCl 1,500 MG in 0.9% Normal Saline (500mL Bag) 500 ML 250 MG IV (10:22)
--- NOTE | 2025-04-02 10:39 | PN.CARD_ITS ---
Subjective Subjective Patient seen and evaluated. Undergoing vent weaning parameters Objective Data Vital Signs: Vital Signs Temp Pulse Resp BP Pulse Ox O2 Del Method O2 Flow Rate 98.8 F 94 14 140/67 H 96 Nasal Cannula 2 04/02/25 09:00 04/02/25 09:00 04/02/25 09:00 04/02/25 09:00 04/02/25 09:00 04/02/25 09:00 04/02/25 09:00 FiO2 30 04/02/25 08:00 Oxygen Flow Rate (L/min) 2 Oxygen Delivery Method Nasal Cannula Weight: 192 lb 14.472 oz Body Mass Index (BMI) 30.9 Intake & Output: Intake and Output for Last 24 Hours 03/31/25 04/01/25 04/02/25 23:59 23:59 23:59 Intake Total 2086.86 / 2120.16 1911.54 / 2000.70 675.92 / 675.92 Output Total 1750 / 1750 3095 / 3095 575 / 575 Balance 336.86 / 370.16 -1183.46 / -1094.30 100.92 / 100.92 Lab / Micro Data 04/02/25 03:28 04/02/25 03:28 Labs: Laboratory Results - last 24 hr 04/01/25 03:26: Potassium 2.7 L* 04/01/25 10:51: POC Glucose 97 04/01/25 16:31: POC Glucose 113 H 04/01/25 22:24: POC Glucose 118 H 04/02/25 03:28: WBC 9.2, RBC 3.04 L, Hgb 8.3 L, Hct 25.7 L, MCV 84.5, MCH 27.3, MCHC 32.3, RDW Std Deviation 44.7 H, RDW Coeff of Spencer 14.5, Plt Count 183, MPV 9.4, Immature Gran % (Auto) 0.300, Neut % (Auto) 71.2 H, Lymph % (Auto) 18.3 L, [place] % (Auto) 8.5, Eos % (Auto) 1.2, Baso % (Auto) 0.5, Absolute Neuts (auto) 6.5, Absolute Lymphs (auto) 1.67, Nucleated RBC % 0, APTT 40.3 H, Sodium 141, Potassium 3.3, Chloride 106, Carbon Dioxide 22.4, Anion Gap 12, BUN 55 H, C reatinine 1.29 H, Estim Creat Clear Calc 56.32, Est GFR (MDRD) Non-Af 50 L, B UN/Creatinine Ratio 42.2 H, Glucose 167 H, Calcium 8.5 04/02/25 05:01: POC Glucose 151 H 04/02/25 10:05: POC Glucose 120 H Micro: Microbiology 03/30/25 16:00 Sputum, Induced/Lukens Gram Stain - Final 03/30/25 16:00 Sputum, Induced/Lukens Respiratory Culture - Final Staphylococcus aureus 03/30/25 11:20 Blood Culture (Wb) - Left Wrist Blood Culture - Preliminary No growth in 48 hours. 03/30/25 11:00 Blood Culture (Wb) - Chest Blood Culture - Preliminary No growth in 48 hours. 03/30/25 11:46 Urine, Catheterized Urine Culture - Final Culture exhibits no growth. Rhythm Strip Rhythm Strip: Sinus Rhythm Cardiology Labs/Tests 04/01/25 03:26: Potassium 2.7 L* 04/02/25 03:28: WBC 9.2, RBC 3.04 L, Hgb 8.3 L, Hct 25.7 L, MCV 84.5, MCH 27.3, MCHC 32.3, Plt Count 183, MPV 9.4, Immature Gran % (Auto) 0.300, Neut % (Auto) 71.2 H, Lymph % (Auto) 18.3 L, [place] % (Auto) 8.5, Eos % (Auto) 1.2, Baso % (Auto) 0.5, Absolute Neuts (auto) 6.5, Nucleated RBC % 0, APTT 40.3 H, Sodium 141, Potassium 3.3, Chloride 106, Carbon Dioxide 22.4, Anion Gap 12, BUN 55 H, C reatinine 1.29 H, Est GFR (MDRD) Non-Af 50 L, BUN/Creatinine Ratio 42.2 H, G lucose 167 H, Calcium 8.5 Rhythm: EKG: ECHO: Stress Test: Cardiac Cath: PCI: CT Surgery: Holter monitor: EPS: PPM: CXR: Chest CT Scan: Physical Exam Const Constitutional Narrative: Remains intubated and mechanically ventilated. Currently tolerating spontaneous mode of mechanical ventilation. HEENT normocephalic and head/scalp atraumatic Mouth: endotracheal tube in place and OG tube in place Eyes PERRL, conjunctivae normal and no scleral icterus Neck supple General: trachea midline Chest inspection of chest normal Resp Auscultation: diminished lung sounds; Negative for rales, rhonchi or wheezes Cardio regular rate and regular rhythm GI normal to inspection, nondistended, normoactive bowel sounds Extremity General Extremity: edema bilateral lower extremity; Negative for clubbing Skin no rashes or lesions noted Neuro Neuro Narrative: Alert and able to follow simple commands appropriately. Assessment & Plan Assessment/Plan (1) Cardiac LV ejection fraction 10-20%: PLAN: She does have evidence of a nonischemic cardiomyopathy. The plan to be to continue with guideline directed medical therapy after she is extubated. (2) Acute on chronic HFrEF (heart failure with reduced ejection fraction): PLAN: She does have evidence of acute on chronic congestive heart failure. She will continue with intravenous diuretics and will be on guideline directed medical therapy.
[2025-04-02 11:23] LABS: Partial Thromboplast Time 55.3 Seconds (24.1-36.2)
--- NOTE | 2025-04-02 13:12 | CHAPLAIN ---
Type of Pastoral Visit ___ Initial Visit _x__ Follow-up Visit ___ On-call Visit ___ General Patient Visit ___ Spiritual Assessment ___ Family Conference ___ Bereavement ___ Rapid Response ___ Code Blue ___ Other (describe below) Pastoral Care Referral From ___ Patient ___ Family ___ Nurse ___ Physician ___ Cutter Aluminum Sheet ___ Route Vending Machine Servicer _x__ Other (describe below) Sacrament/Intervention ___ Active listening ___ Anointing ___ Advent ___ Bereavement ___ Communion ___ Luz exploration ___ ___ Life review _x__ Prayer ___ Reconciliation ___ Sacrament of Sick _x__ Supportive presence ___ Wedding ___ Other (describe below) Pastoral Comments patient is awake after being extubated this morning; pt is able to speak but is slow and with hoarse voice; pt is reminded of this improvement and being thankful for progress made; pt is offered supportive presence and interventions; pt welcomes a prayer and time to continue resting
[2025-04-02 18:25] LABS: Partial Thromboplast Time 131.6 Seconds (24.1-36.2)
[2025-04-02] MEDS: Vancomycin HCl 1,000 MG in 0.9% Normal Saline (250mL Bag) 250 ML 250 MG IV (20:57)
[2025-04-02] MEDS: SACUBITRIL/VALSARTAN 24/26 MG TABLET 1 EACH PO (21:00)
[2025-04-02] MEDS: HEPARIN/D5w 25,000 UNITS 25,000 UNITS/250 ML IV.SOLN. 7.4 UNITS CONT INF (21:41)
[2025-04-03] VITALS (19 sets, daily range): BP systolic 134–172; BP diastolic 57–96; PULSE 87–111; RESP 12–20; TEMP 36–37.1; O2SAT 93–100; BMI 31.4
[2025-04-03 02:13] LABS: Hematocrit 27.9 % (37-47); Hemoglobin 8.8 g/dL (12.0-15.0); Immature Granulocytes Count 0.040 X10^3/uL (0.0-0.0); Mean Corp Hgb Conc 31.5 g/dL (32-36); Mean Corpuscular Volume 85.1 fL (81-99); Mean Platelet Vol. 9.1 fl (6.2-12.0); NRBC Flagged by Analyzer 0 % (0-5); Platelet Count 206 K/mm3 (150-450); RBC Distribution Width CV 14.1 % (11.6-14.6); RBC Distribution Width SD 44.1 fl (35.1-43.9); Red Blood Count 3.28 M/mm3 (4.2-5.4); White Blood Count 10.3 K/mm3 (4.4-11.0)
[2025-04-03 02:29] LABS: Anion Gap 10 (5-15); BUN 31 mg/dL (4-19); BUN/Creat Ratio 36.7 RATIO (10-20); Calcium,Total 8.7 mg/dL (7.6-11.0); Carbon Dioxide 22.9 mmol/L (21.0-32.0); Chloride 106 mmol/L (98-108); Estimated Creatinine Clearance 86.30 ml/min (50-250); Glucose 122 mg/dL (70-99); Potassium 3.4 mmol/L (3.3-5.1)
[2025-04-03 02:35] LABS: Partial Thromboplast Time 36.2 Seconds (24.1-36.2)
[2025-04-03] MEDS: 0.9% Saline Lock 10 ML Syringe IV ×4 (02:41→21:29)
[2025-04-03] MEDS: Heparin Nomogram Adjustment 5,000 UNIT/ML VIAL IV (02:42)
[2025-04-03] MEDS: CHLORHEXIDINE GLUC 2% CLOTH 1 EACH TOWELETTE TOPICAL (05:13)
--- NOTE | 2025-04-03 05:36 | PCM.PN.INT ---
Assessment & Plan Assessment/Plan (1) Acute on chronic HFrEF (heart failure with reduced ejection fraction): (2) Bilateral pulmonary embolism: (3) Acute hypoxemic respiratory failure: PLAN: Plan RECOMMENDATIONS: 1. Continue supplemental oxygen to maintain saturations at or above 90%. 2. Continue antimicrobials. 3. Okay to transition from heparin to either Eliquis or Xarelto. 4. Encourage incentive spirometer use and mobilize patient as tolerated. 5. The patient is stable for transfer out of the intensive care unit. Will sign off from a critical care perspective. IMPRESSIONS: 1. Acute hypoxemic respiratory failure Improved. Most likely multifactorial in etiology with acute decompensated heart failure, pulmonary emboli and pneumonia contributing. The patient was ultimately intubated as a consequence of the aforementioned presentation. With supportive care, including invasive mechanical ventilatory support along with antimicrobials and volume optimization with diuretics, the patient was able to be extubated on April 02. Plan to continue supplemental oxygen to maintain saturations at or above 90%. Continue antimicrobials. The patient can be transition from a weight-based heparin infusion to either Eliquis or Xarelto from my perspective. 2. Acute decompensated heart failure Continue current medical management, as outlined above. Cardiology is following to assist with medical management. The patient has a longstanding history of chronic combined congestive heart failure. 3. Sepsis The patient presented with sepsis due to possible pneumonia with acute sepsis related organ dysfunction as evidenced by lactic acidemia and acute respiratory failure requiring invasive mechanical ventilatory support. The patient did not receive full sepsis related volume resuscitation over concerns for volume overload in the setting of CHF. Antimicrobials will be continued, based upon cultures and sensitivities. The patient remains otherwise hemodynamically stable. 4. History of chronic GERD/diabetes mellitus/gastroparesis/diabetic neuropathy/coronary artery disease/hyperlipidemia/peripheral vascular disease/depression Complicates care, management, recovery and prognosis. Continue supportive care as noted above. Physical therapy to work with the patient. This note was generated with [employer] dictation software. It may contain incorrect words, spelling, and punctuation that were not noted in checking the note before signing. Subjective Subjective The patient was seen and examined at the bedside this morning. Events from the last 24 hours have been reviewed. The patient is currently afebrile, hemodynamically stable and maintaining appropriate oxygen saturations on 2 L/min via nasal cannula. The patient has done well following extubation yesterday. She does report mild residual nausea this morning. White blood cell count is normal. Hemoglobin is stable at 8.8 g/dL. Chemistry profile was unremarkable. Objective Data Objective Data The patient's most recent lab work, culture data and imaging studies have all been personally reviewed. Sputum cultures demonstrating growth of Staphylococcus aureus. Surface echocardiogram demonstrated moderately dilated LV with severe global hypokinesis and an ejection fraction of 20%. Vital Signs: Vital Signs Temp Pulse Resp BP Pulse Ox O2 Del Method O2 Flow Rate 98.0 F 91 16 156/86 H 98 Nasal Cannula 3 04/03/25 04:00 04/03/25 05:00 04/03/25 05:00 04/03/25 05:00 04/03/25 05:00 04/03/25 05:00 04/03/25 05:00 FiO2 30 04/02/25 08:00 Oxygen Flow Rate (L/min) 3 Oxygen Delivery Method Nasal Cannula Weight: 195 lb 1.745 oz Body Mass Index (BMI) 31.4 Intake & Output: Intake and Output for Last 24 Hours 04/01/25 04/02/25 04/03/25 23:59 23:59 23:59 Intake Total 1911.54 / 2000.70 2709.32 / 2709.32 136.88 / 136.88 Output Total 3095 / 3095 1775 / 1775 350 / 350 Balance -1183.46 / -1094.30 934.32 / 934.32 -213.12 / -213.12 Lab / Micro Data Attestation: I reviewed the patient's lab results. 04/03/25 02:00 04/03/25 02:00 Labs: Laboratory Results - last 24 hr 04/02/25 10:05: POC Glucose 120 H 04/02/25 10:55: APTT 55.3 H 04/02/25 16:32: POC Glucose 129 H 04/02/25 16:55: APTT 131.6 H* 04/02/25 23:31: POC Glucose 135 H 04/03/25 02:00: WBC 10.3, RBC 3.28 L, Hgb 8.8 L, Hct 27.9 L, MCV 85.1, MCH 26.8 L, MCHC 31.5 L, RDW Std Deviation 44.1 H, RDW Coeff of Spencer 14.1, Plt Count 206, MPV 9.1, Immature Gran % (Auto) 0.400, Neut % (Auto) 75.0 H, Lymph % (Auto) 14.7 L, [place] % (Auto) 7.3, Eos % (Auto) 2.2, Baso % (Auto) 0.4, Absolute Neuts (auto) 7.7, Absolute Lymphs (auto) 1.51, Nucleated RBC % 0, APTT 36.2, Sodium 139, Potassium 3.4, Chloride 106, Carbon Dioxide 22.9, Anion Gap 10, BUN 31 H, Creatinine 0.84, Estim Creat Clear Calc 86.30, Est GFR (MDRD) Non-Af 83, BUN/Creatinine Ratio 36.7 H, Glucose 122 H, Calcium 8.7 04/03/25 04:59: POC Glucose 121 H Micro: Microbiology 03/30/25 16:00 Sputum, Induced/Lukens Gram Stain - Final 03/30/25 16:00 Sputum, Induced/Lukens Respiratory Culture - Final Staphylococcus aureus 03/30/25 11:20 Blood Culture (Wb) - Left Wrist Blood Culture - Preliminary No growth in 48 hours. 03/30/25 11:00 Blood Culture (Wb) - Chest Blood Culture - Preliminary No growth in 48 hours. 03/30/25 11:46 Urine, Catheterized Urine Culture - Final Culture exhibits no growth. 03/31/25 08:30 Nasal Secretion MRSA (PCR) - Final 03/30/25 11:46 Urine Catheter - Hathaway Legionella Antigen - Final 03/30/25 11:46 Urine Catheter - Hathaway Streptococcus pneumoniae Antigen (M - Final 03/30/25 10:41 Mucosa - Nose SARS-CoV-2, Influenza & RSV (PCR) - Final Radiography Diagnostic Testing: Radiology Impression Venous Doppler Study 03/30/25 14:04 Interpretation Summary Deep veins of the bilateral lower extremities are patent and compressible segmentally. There is no evidence of bilateral lower extremity deep vein thrombosis. The bilateral great saphenous veins appear patent and compressible segmentally. Ordering Physician: Jonas Justin Referring Physician: Zohreh Pratt Performed By: Tiffany Rosado, EDMOND, RVT Chest X-Ray 03/31/25 08:25 IMPRESSION: As above. Reading Location: [facility] Rhythm Strip Rhythm Strip: Sinus Rhythm Physical Exam Const alert and no apparent distress General Appearance: cooperative HEENT normocephalic and head/scalp atraumatic Eyes PERRL, EOMs intact bilaterally, conjunctivae normal and no scleral icterus Neck supple General: trachea midline Chest inspection of chest normal Resp Auscultation: diminished lung sounds; Negative for rales, rhonchi or wheezes Cardio regular rate and regular rhythm GI normal to inspection, nondistended, normoactive bowel sounds Extremity General Extremity: edema bilateral lower extremity; Negative for clubbing Skin no rashes or lesions noted Neuro oriented x3, CN's II-XII intact bilaterally, moves all extremities and no focal motor deficits Psych Mood & Affect: flat affect Charges/Coding Visit Charges Inpatient E&M: 68253 Subs Hosp L3
[2025-04-03] MEDS: SACUBITRIL/VALSARTAN 24/26 MG TABLET 1 EACH PO (08:29)
[2025-04-03] MEDS: Insulin Glargine-YFGN 100 UNIT/ML Pen 20 UNIT SC (08:33)
[2025-04-03] MEDS: Senna/Docusate Sodium 1 Tablet 2 TABLET PO (08:34)
[2025-04-03] MEDS: Pantoprazole Sodium 40 MG in 0.9% Normal Saline (100mL MB+) 100 ML 330 MG IV (08:58)
[2025-04-03] MEDS: Vancomycin HCl 1,000 MG in 0.9% Normal Saline (250mL Bag) 250 ML 250 MG IV ×2 (08:59→22:28)
--- NOTE | 2025-04-03 09:05 | PCM.PN.HOSP ---
Reason for Visit Chief Complaint: Shortness of breath Objective Data Objective Data Vital Signs: Vital Signs Temp Pulse Resp BP Pulse Ox O2 Del Method O2 Flow Rate 97.1 F L 98 16 159/78 H 93 Nasal Cannula 1 04/03/25 08:00 04/03/25 08:00 04/03/25 08:00 04/03/25 08:00 04/03/25 08:00 04/03/25 08:00 04/03/25 08:00 FiO2 30 04/02/25 08:00 Oxygen Flow Rate (L/min) 1 Oxygen Delivery Method Nasal Cannula Weight: 195 lb 1.745 oz Body Mass Index (BMI) 31.4 Intake & Output: Intake and Output for Last 24 Hours 04/01/25 04/02/25 04/03/25 23:59 23:59 23:59 Intake Total 1911.54 / 2000.70 2709.32 / 2709.32 136.88 / 136.88 Output Total 3095 / 3095 1775 / 1775 350 / 350 Balance -1183.46 / -1094.30 934.32 / 934.32 -213.12 / -213.12 Lab / Micro Data 04/03/25 02:00 04/03/25 02:00 Labs: Laboratory Results - last 24 hr 04/02/25 10:05: POC Glucose 120 H 04/02/25 10:55: APTT 55.3 H 04/02/25 16:32: POC Glucose 129 H 04/02/25 16:55: APTT 131.6 H* 04/02/25 23:31: POC Glucose 135 H 04/03/25 02:00: WBC 10.3, RBC 3.28 L, Hgb 8.8 L, Hct 27.9 L, MCV 85.1, MCH 26.8 L, MCHC 31.5 L, RDW Std Deviation 44.1 H, RDW Coeff of Spencer 14.1, Plt Count 206, MPV 9.1, Immature Gran % (Auto) 0.400, Neut % (Auto) 75.0 H, Lymph % (Auto) 14.7 L, [place] % (Auto) 7.3, Eos % (Auto) 2.2, Baso % (Auto) 0.4, Absolute Neuts (auto) 7.7, Absolute Lymphs (auto) 1.51, Nucleated RBC % 0, APTT 36.2, Sodium 139, Potassium 3.4, Chloride 106, Carbon Dioxide 22.9, Anion Gap 10, BUN 31 H, Creatinine 0.84, Estim Creat Clear Calc 86.30, Est GFR (MDRD) Non-Af 83, BUN/Creatinine Ratio 36.7 H, Glucose 122 H, Calcium 8.7 04/03/25 04:59: POC Glucose 121 H Micro: Microbiology 03/30/25 16:00 Sputum, Induced/Lukens Gram Stain - Final 03/30/25 16:00 Sputum, Induced/Lukens Respiratory Culture - Final Staphylococcus aureus 03/30/25 11:20 Blood Culture (Wb) - Left Wrist Blood Culture - Preliminary No growth in 48 hours. 03/30/25 11:00 Blood Culture (Wb) - Chest Blood Culture - Preliminary No growth in 48 hours. 03/30/25 11:46 Urine, Catheterized Urine Culture - Final Culture exhibits no growth. 03/31/25 08:30 Nasal Secretion MRSA (PCR) - Final 03/30/25 11:46 Urine Catheter - Hathaway Legionella Antigen - Final 03/30/25 11:46 Urine Catheter - Hathaway Streptococcus pneumoniae Antigen (M - Final 03/30/25 10:41 Mucosa - Nose SARS-CoV-2, Influenza & RSV (PCR) - Final Rhythm Strip Rhythm Strip: Sinus Rhythm Physical Exam Narrative Patient is vomiting, nauseated. She has been doing since yesterday. Throat irritation after intubation Physical exam Seen and examined General: Alert, Oriented x3, Cooperative HEENT: Atraumatic, PERRLA, EOMI, Normocephalic. Oral: No Gingival or Mucosal Lesions/ Ulcerations Neck: Supple, No JVD, Negative Carotid Bruits Chest wall/Lungs: Air entry diminished in bilateral lung bases. No crepitation/rhonchi Cardiovascular: Regular rate and rhythm, Normal S1,S2, systolic murmur Abdomen: Bowel Sounds Present, Soft, Non Tender, Non-Distended : No dysuria. No renal angle tenderness. No suprapubic tenderness. Extremities: Left foot transmetatarsal amputation. Mild edema, Capillary Refill Less than 3 Seconds Skin: No rashes, No breakdown Musculoskeletal: ROM limited with pain in the joints. No Tenderness to Palpation of Joints or Extremities Neurological: Cranial nerves II-XII grossly intact, DTR 2+/4. No acute focal neurological deficit. Psych/Mental Status: Flat affect Assessment & Plan Assessment/Plan (1) Acute hypoxemic respiratory failure: (2) Acute on chronic HFrEF (heart failure with reduced ejection fraction): (3) Bilateral pulmonary embolism: PLAN: Plan Patient is a 54-year-old lady who presented to the emergency department with progressive shortness of breath studies demonstrated bilateral PE with diffuse patchy interstitial alveolar infiltrates with peripheral wedge-shaped consolidation most severe at the lung bases. Patient was initially placed on noninvasive ventilation BiPAP however respiratory status deteriorated resulting in patient being intubated and admitted to the intensive care unit 1. Acute hypoxic respiratory failure ? Due to combination of bilateral pulmonary embolism, acute congestive heart failure with reduced ejection fraction, suspected pneumonia. Patient was initially manage on BiPAP however respiratory status continued to deteriorate resulting in patient being intubated and subsequently admitted to the intensive care unit. Consult was placed to memory care program resident/pulmonary medicine. Management of patient events deferred ? 04/01/2025; attempt at weaning this morning was unsuccessful after patient had a bout of emesis. ? 04/02/2025; patient awake on the vent currently undergoing weaning trial 04/03: Patient extubated yesterday.. She is nauseated and vomiting. Throat irritation. Speech therapy ordered 2. Acute bilateral pulmonary embolism ? With suspected pulmonary infarction. CT of the chest obtained did show partly occlusive thrombus visible in the proximal right lower lobe pulmonary arteries, partly occlusive clot visible to the right upper lobe pulmonary vessels, nonocclusive clot visible in the left upper lobe proximal branch vessels, diffuse patchy interstitial and alveolar infiltrate with peripheral wedge-shaped consolidation, most severe at the bases.Patient started on heparin ? 04/01/2025; patient remains on heparin ? 04/02/2025; patient remains on heparin with plans to transition to DOAC once patient is extubated 04/03: H&H 8.28//27.9%. Transition IV heparin drip to enoxaparin 1 mg Q12 hourly subcu. 3. Acute on chronic congestive heart failure with reduced ejection fraction ?2D echo demonstrated estimated LVEF of 20% with moderately enlarged left atrium, moderate mitral valve insufficiency and trivial pericardial effusion. Patient previous EF was 30%. Patient is on Aldactone as well as furosemide. Consult placed to cardiology ? 04/01/2025; patient was seen in consultation by Dr. Fajardo with cardiology case discussed with him plan is to resume patient Entresto when hemodynamically stable 04/03: Heart rate and blood pressure control 4. Sepsis secondary to pneumonia ? Patient was found to have elevated lactic acid level with evidence of endorgan dysfunction?respiratory failure. Patient did receive IV antibiotics cultures sent continued with antibiotics pending receipt of culture results ? 04/01/2025 patient sputum cultures positive for MRSA added vancomycin to treatment 04/03: Sputum culture growing rare Staph aureus, 1+ GPC, 1+ GPR and yeastlike organism. 5. Diabetes mellitus type 2 with complications including diabetic neuropathy as well as gastroparesis ? Patient recent hemoglobin A1c was 13.2 on 01/29/2025. Glucose levels were markedly elevated on admission. Patient was started on long-acting insulin in addition to Accu-Cheks every 6 hours with sliding scale coverage. Subsequent adjustment made to patient long-acting insulin ? 04/01/2025; patient did develop hypoglycemia following adjustments of her insulin regimen made further adjustment by decreasing her dose. Plan is to continue to monitor and adjust dose as needed 6. Peripheral arterial disease ? Previous stent about 1 year ago Patient is on recommended medications including dual antiplatelet therapy as well as statin therapy. Plan is for patient to follow-up as outpatient 7. GERD/possible esophagitis ? Patient is on PPI 8. Chronic hypotension ? Patient is on midodrine. Held on admission 9. Dyslipidemia ?Patient is on statin therapy, continued at home dose 10. Tobacco dependence Plan is to recreational counselor patient on cessation once of the event 11. Chronic back pain ? Secondary to chronic compression fractures plan is to continue with PT OT as tolerated 12. Anemia ? Secondary to chronic disorder monitoring H&H and transfuse if patient becomes symptomatic or hemoglobin falls below 7 ? 04/02/2025; patient hemoglobin remains low at 8.3 13. History of depression with anxiety ? Patient is on escitalopram plan is to resume following extubation 14. Vitamin D deficiency ? Patient is on vitamin D supplementation 15. Hypokalemia ? Corrected per protocol repeat potassium levels ordered for a.m. ? 04/02/2025; potassium remains low additional potassium given Microbiology Past 72 Hours 03/30/25 16:00 Sputum, Induced/Lukens Gram Stain - Final 03/30/25 16:00 Sputum, Induced/Lukens Respiratory Culture - Final Staphylococcus aureus 03/30/25 11:20 Blood Culture (Wb) - Left Wrist Blood Culture - Preliminary No growth in 48 hours. 03/30/25 11:00 Blood Culture (Wb) - Chest Blood Culture - Preliminary No growth in 48 hours. 03/30/25 11:46 Urine, Catheterized Urine Culture - Final Culture exhibits no growth. 03/31/25 08:30 Nasal Secretion MRSA (PCR) - Final 03/30/25 11:46 Urine Catheter - Hathaway Legionella Antigen - Final 03/30/25 11:46 Urine Catheter - Hathaway Streptococcus pneumoniae Antigen (M - Final Laboratory Results 04/02/25 10:05: POC Glucose 120 H 04/02/25 10:55: APTT 55.3 H 04/02/25 16:32: POC Glucose 129 H 04/02/25 16:55: APTT 131.6 H* 04/02/25 23:31: POC Glucose 135 H 04/03/25 02:00: WBC 10.3, RBC 3.28 L, Hgb 8.8 L, Hct 27.9 L, MCV 85.1, MCH 26.8 L, MCHC 31.5 L, RDW Std Deviation 44.1 H, RDW Coeff of Spencer 14.1, Plt Count 206, MPV 9.1, Immature Gran % (Auto) 0.400, Neut % (Auto) 75.0 H, Lymph % (Auto) 14.7 L, [place] % (Auto) 7.3, Eos % (Auto) 2.2, Baso % (Auto) 0.4, Absolute Neuts (auto) 7.7, Absolute Lymphs (auto) 1.51, Nucleated RBC % 0, APTT 36.2, Sodium 139, Potassium 3.4, Chloride 106, Carbon Dioxide 22.9, Anion Gap 10, BUN 31 H, Creatinine 0.84, Estim Creat Clear Calc 86.30, Est GFR (MDRD) Non-Af 83, BUN/Creatinine Ratio 36.7 H, Glucose 122 H, Calcium 8.7 04/03/25 04:59: POC Glucose 121 H 04/03/25 08:45: APTT Pending Charges/Coding Visit Charges Inpatient E&M: 51792 Subs Hosp L3
[2025-04-03 09:22] LABS: Partial Thromboplast Time 58.2 Seconds (24.1-36.2)
--- NOTE | 2025-04-03 10:02 | CT_ITS ---
PROCEDURE: ABDOMEN/PELVIS WITHOUT CONT 04/03/2025 REASON FOR EXAM: PERSISTENT NAUSEA/VOMITING TECHNIQUE: Procedure Code: CTABDPEL Modality: CT Procedure: ABDOMEN/PELVIS WITHOUT CONT Noncontrast technique limits evaluation of the abdominal and pelvic viscera. Coronal and Sagittal reconstruction series were provided. One or more dose reduction techniques were used (e.g., Automated exposure control, adjustment of the mA and/or kV according to patient size, use of iterative reconstruction technique). RADIATION DOSE SUMMARY: CTDlvol: 20 mGy DLP: 1065 mGycm COMPARISON: September 07, 2024 FINDINGS: Lung bases: Dependent subsegmental atelectasis, scant pleural fluid. Liver: Normal Gallbladder: Cholecystectomy Spleen: Normal Pancreas: Normal Adrenals: Right adrenal mass is 1.9 x 2.1 cm with a density suggestive of an adrenal adenoma. A similar adenoma is seen in the left adrenal body and posterior limb measuring 1.8 x 1.8 cm. Kidneys: Simple cyst posterior left upper pole is 2.3 cm. No collecting system dilation is seen. Punctate calculus left mid to upper pole, left midpole. Increased density of the renal parenchyma may represent some retained contrast material from a prior contrast-enhanced exam. Bladder: Normal Reproductive Organs: Uterus and ovaries are normal. Bowel: The stomach is normal. Small bowel is normal. A few scattered colonic diverticula are seen without diverticulitis. Most of the colon is evacuated. Some fluid is seen within the colon that contains increased density that may represent some contrast material. Appendix: Surgically absent Lymph nodes: None appear enlarged. Vasculature: [id number] atherosclerotic plaque without aneurysm. Peritoneum / Retroperitoneum: No free air, free fluid or mass. Bones: Decreased bone mineralization. Grade 3 compression fracture of L3 vertebral body. Sclerosis, vacuum disc phenomenon is present there along with some mild retropulsion of the posterior superior aspect of the L3 superior endplate. Grade 1 central depression L4 and also depression of the superior endplate of L5. Facet hypertrophy is seen. CT/Abdomen/Pelvis without Cont IMPRESSION: 1. Cholecystectomy 2. Bilateral adrenal adenomas are benign. 3. Fluid contents of the colon suggesting a diarrheal state. No wall thickeni ng or pericholecystic fluid. Diverticulosis without diverticulitis. Appendectomy. 4. Decreased bone mineralization. Compression fracture L3, L4 and L5. Severe compression fracture of L3. 5. Slight increased density of the renal nephrogram suggesting some retained c ontrast material. Correlate with renal function to ensure no evidence of contrast induced nephropathy. No collecting system di lation is present. Incidental simple cyst left upper pole, Bosniak 1. No follow-up required. Reading Location: [id number]
--- NOTE | 2025-04-03 12:01 | CASEMGMT ---
Addendum entered by Nancy Duenas 04/03/25 14:28: Social Work [facility] and precert is started at this time. Pt notified and agreeable. Green sheet placed on chart to facilitate a weekend discharge in the event precert is obtained. [facility] to call the unit if precert obtained. Plan: [facility], pending precert SANDRA Cotton Addendum entered by Nancy Duenas 04/03/25 14:03: Social Work Referral sent to [facility]. SANDRA Garcia Original Note: Social Work SW met with pt and introduced self and role of SW. PT laying in bed with eyes closed and moaning. Pt agreeable to talk with SW but did not open eyes. SW spoke to pt regarding advance directives and pt states she has not completed and is not interested in doing so at this time. SW spoke with pt regarding discharge plans. Pt is currently mod-max x2 A with therapy. Pt lives at home with her dgt Ashlee. KIKE discussed with pt the ability to return home or more likely need for short term SNF stay to regain strength. Pt is agreeable to SNF. A list of SNF providers including quality and resource use data and consistent with the patient?s preferred geographic region, medical needs, and insurance network were provided from the [employer] Guide. Pt states she has been to [facility] previously and would want to return here. Pt gave permission to call her dgt Ashlee and update on the discharge plan. Phone call to Ashlee who states [facility]. Pt had been at [facility] for a couple months after she had a pelvic fracture. Ashlee is agreeable to md plan of returning to [facility]. [place] senior it assistant updated and requested referral be sent. Plan: [facility], pending acceptance and precert SANDRA Cotton
--- NOTE | 2025-04-03 13:17 | PCM.CONS.GEN ---
Assessment & Plan Assessment/Plan (1) Bilateral pulmonary embolism: (2) Acute hypoxemic respiratory failure: PLAN: Sputum cx with rare MRSA. Cont iv vanc. Plan on short course po doxy at discharge to complete 7 days total. Will follow, thank you (3) Uncontrolled diabetes mellitus: HPI Consult Data Date of Consult: 04/03/25 HPI Narrative Reason for Consultation: pneumonia HPI Narrative: TRENTON DENTON, is a 54 F with h/o CHF, DM, PVD, presented 03/30 with acute onset dyspnea, cough, not feeling well, nausea. Admitted to icu with hypoxia. Now on iv vanc, feeling a little better, no fever or chills. No new rash. Full ROS performed and neg except as noted above. [facility] Medical History Cardiac LV ejection fraction 10-20% Tobacco abuse Overweight (BMI 25.0-29.9) L5 vertebral fracture ESBL (extended spectrum beta-lactamase) producing bacteria infection Generalized weakness Candidiasis of breast Colitis Debility PTSD (post-traumatic stress disorder) Closed compression fracture of L3 vertebra Hypokalemia Colitis BiPAP (biphasic positive airway pressure) dependence Coronary artery disease On home oxygen therapy Rheumatoid arthritis Sleep apnea Smoker DVT (deep venous thrombosis) Seizures Amputation toe Psychiatric disorder Ischemic cardiomyopathy Diabetes type 2, uncontrolled Essential hypertension Substance abuse Alcohol abuse Depression Osteoporosis GERD (gastroesophageal reflux disease) Pulmonary embolism Myocardial infarct Pericardial effusion Hypoxemia Acute dyspnea Aftercare following surgery of the circulatory system Hx of fracture of humerus Toe amputee Hyperlipidemia CHF (congestive heart failure) CAD (coronary artery disease), [place] coronary artery Medical History unable to obtain Home Medications ?Medication ?Instructions ?Recorded ?Last Taken ?Type aspirin 81 mg capsule 81 mg PO DAILY heart health 08/10/22 09/06/24 History clopidogrel 75 mg tablet 75 mg PO DAILY anti platelet #30 02/03/23 09/06/24 Rx tabs pantoprazole 40 mg tablet,delayed 40 mg PO DAILY reflux 04/18/23 09/06/24 History release sacubitril 24 mg-valsartan 26 mg 1 tab PO BID .bp 30 days #60 tabs 05/07/23 09/06/24 Rx tablet (Entresto) atorvastatin 80 mg tablet 80 mg PO QHS cholesterol 12/29/23 09/06/24 History gabapentin 300 mg capsule 300 mg PO TID nerve pain 12/29/23 09/06/24 History DIC 2%/RINKU 6%/LIDOC 2% IN 1 - 2 pump subdermal Q6H PRN FOR 02/14/24 09/06/24 History saltsable FEET cholecalciferol (vitamin D3) 1,250 1,250 mcg PO WE supplement 02/14/24 09/03/24 History mcg (50,000 unit) tablet spironolactone 25 mg tablet 25 mg PO DAILY water pill 30 days 02/17/24 09/06/24 Rx #0 tabs ergocalciferol (vitamin D2) 1,250 1,250 mcg PO We@1000 #0 caps 02/19/24 09/03/24 Rx mcg (50,000 unit) capsule (Vitamin D2) escitalopram oxalate 20 mg tablet 20 mg PO DAILY depression 06/29/24 09/06/24 History furosemide 20 mg tablet 20 mg PO DAILY water pill 06/29/24 09/06/24 History midodrine 2.5 mg tablet 2.5 mg PO DAILY blood pressure 06/29/24 09/06/24 History polyethylene glycol 3350 17 17 g PO BID PRN constipation 06/29/24 Unknown History gram/dose oral powder (Miralax) sennosides 8.6 mg-docusate sodium 2 tab PO BID PRN constipation 06/29/24 Unknown History 50 mg tablet (Stimulant Laxative Plus) tizanidine 4 mg tablet 4 mg PO 3XD spasm 06/29/24 09/06/24 History acetaminophen 500 mg tablet 1,000 mg (2 x 500 mg) PO Q8 #0 tabs 09/02/24 09/06/24 Rx sennosides 8.6 mg-docusate sodium 2 tab PO BID #60 tabs 09/16/24 Unknown Rx 50 mg tablet (Stimulant Laxative Plus) metoclopramide HCl 10 mg tablet 10 mg PO Q6H PRN nausea and 09/21/24 Unknown Rx (Reglan) vomiting 5 days #20 tabs nystatin 100,000 unit/gram topical 1 applic topical TID #0 grams 02/11/25 Unknown Rx powder oxycodone 5 mg tablet 5 mg PO Q4H PRN PRN pain 4-10 3 02/11/25 Unknown Rx days #12 tabs insulin glargine 100 unit/mL (3 unit subcut DM 03/30/25 Unknown History mL) subcutaneous pen (Lantus Solostar U-100 Insulin) insulin lispro 100 unit/mL 20 unit subcut DAILY DM 03/30/25 Unknown History subcutaneous pen (Humalog KwikPen (U-100) Insulin) insulin lispro 100 unit/mL 27 unit subcut DAILY DM 03/30/25 Unknown History subcutaneous pen (Humalog KwikPen (U-100) Insulin) OXYGEN - Supplemental ([facility] Pulmonary Information 04/01/25 Unknown History INFORMATIONAL USE ONLY) Allergy/AdvReac Type Severity Reaction Status Date / Time latex Allergy Hives Verified 01/29/25 15:41 Family History Mother Thyroid disorder Diabetes Hypertension Grandmother Diabetes Uncle Diabetes Aunt Diabetes Other Heart disease Family History unable to obtain Surgical History History of cholecystectomy History of appendectomy History of cholecystectomy Surgical History unable to obtain Social History household members: spouse and children housing: house Smoking Status: Unknown if ever smoked alcohol intake: never substance use type: marijuana what type of physical activity do you participate in: none do you feel safe at home: Yes Physical Exam Const alert and no apparent distress General Appearance: cooperative HEENT normocephalic and head/scalp atraumatic Eyes PERRL and EOMs intact bilaterally Neck supple and No nodes Resp Auscultation: diminished lung sounds Cardio regular rate, regular rhythm and no murmurs GI soft to palpation, non-tender and non-distended Extremity General Extremity: edema Skin no rashes or lesions noted Neuro CN's II-XII intact bilaterally Lab / Micro Data Attestation: I reviewed the patient's lab results. 04/03/25 02:00 04/03/25 02:00 Labs: Laboratory Results - last 24 hr 04/02/25 16:32: POC Glucose 129 H 04/02/25 16:55: APTT 131.6 H* 04/02/25 23:31: POC Glucose 135 H 04/03/25 02:00: WBC 10.3, RBC 3.28 L, Hgb 8.8 L, Hct 27.9 L, MCV 85.1, MCH 26.8 L, MCHC 31.5 L, RDW Std Deviation 44.1 H, RDW Coeff of Spencer 14.1, Plt Count 206, MPV 9.1, Immature Gran % (Auto) 0.400, Neut % (Auto) 75.0 H, Lymph % (Auto) 14.7 L, [place] % (Auto) 7.3, Eos % (Auto) 2.2, Baso % (Auto) 0.4, Absolute Neuts (auto) 7.7, Absolute Lymphs (auto) 1.51, Nucleated RBC % 0, APTT 36.2, Sodium 139, Potassium 3.4, Chloride 106, Carbon Dioxide 22.9, Anion Gap 10, BUN 31 H, Creatinine 0.84, Estim Creat Clear Calc 86.30, Est GFR (MDRD) Non-Af 83, BUN/Creatinine Ratio 36.7 H, Glucose 122 H, Calcium 8.7 04/03/25 04:59: POC Glucose 121 H 04/03/25 08:45: APTT 58.2 H 04/03/25 11:06: POC Glucose 141 H Rhythm Strip Rhythm Strip: Sinus Rhythm Imaging Radiology Impression Abdomen/Pelvis CT 04/03/25 10:02 IMPRESSION: 1. Cholecystectomy 2. Bilateral adrenal adenomas are benign. 3. Fluid contents of the colon suggesting a diarrheal state. No wall thickening or pericholecystic fluid. Diverticulosis without diverticulitis. Appendectomy. 4. Decreased bone mineralization. Compression fracture L3, L4 and L5. Severe compression fracture of L3. 5. Slight increased density of the renal nephrogram suggesting some retained contrast material. Correlate with renal function to ensure no evidence of contrast induced nephropathy. No collecting system dilation is present. Incidental simple cyst left upper pole, Bosniak 1. No follow-up required. Reading Location: [id number]
[2025-04-03 14:46] LABS: Hematocrit 30.0 % (37-47); Hemoglobin 9.7 g/dL (12.0-15.0); Immature Granulocytes Count 0.050 X10^3/uL (0.0-0.0); Mean Corp Hgb Conc 32.3 g/dL (32-36); Mean Corpuscular Volume 83.6 fL (81-99); Mean Platelet Vol. 9.4 fl (6.2-12.0); NRBC Flagged by Analyzer 0 % (0-5); Platelet Count 195 K/mm3 (150-450); RBC Distribution Width CV 13.8 % (11.6-14.6); RBC Distribution Width SD 41.7 fl (35.1-43.9); Red Blood Count 3.59 M/mm3 (4.2-5.4); White Blood Count 11.8 K/mm3 (4.4-11.0)
--- NOTE | 2025-04-03 15:10 | ST.MBS ---
Modified Barium Swallow Patient Information Study Date: 04/03/25 Study Time: 13:30 Direct Billable Minutes: 90 Total Minutes procedure & reportin Diagnosis: J96.01 - Acute respiratory failure with hypoxia Referring Physician: Jeremy Alexander Medical History: The patient is a 54-year-old female who presented with progressive shortness of breath. Imaging revealed bilateral pulmonary emboli with diffuse infiltrates and peripheral wedge-shaped consolidation at the lung bases. She was initially managed on BiPAP but required intubation and ICU admission. The patient was extubated on 04/02/25 and now reports nausea, vomiting, and throat irritation. Speech therapy was consulted for dysphagia evaluation given recent extubation and aspiration concern. Her medical course is significant for acute hypoxic respiratory failure secondary to bilateral PE, CHF with EF 20%, and suspected pneumonia. 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 At evaluation, the patient was on 1 L O2 via nasal cannula (SpO? 98?100%) with persistent nausea and throat discomfort. During CBSE, the patient was positioned upright and provided with oral care; she is edentulous without dentures. Administration of the Tonya 3 oz water protocol elicited immediate and delayed coughing, and she declined solid trials due to nausea. An MBSS is scheduled for 04/03 at 1330; CHAYITO Decker was notified. Recommend NPO with medications allowed pending instrumental assessment. Dentition: Edentulous Mental Status: Impaired Respiratory Status: Oxygenating on 2L/M nasal cannula (1L/M) Penetration-Aspiration Scale Penetration-Aspiration Scale: OBJECTIVE ASSESSMENT OF SWALLOW FUNCTION (QUANTITATIVE ? PER TRIAL): PENETRATION / ASPIRATION SCALE (ZAVALA): 1 = does not enter airway 2 = enters airway/above vocal folds/ejected 3 = enters airway/above vocal folds/not ejected 4 = enters airway/contacts vocal folds/ejected 5 = enters airway/contacts vocal folds/not ejected 6 = enters airway/below vocal folds/ejected 7 = enters airway/below vocal folds/not ejected despite effort 8 = enters airway/below vocal folds/no effort VIDEOFLOROSCOPIC SCALE SCORE (ZAVALA): Grade I = aspiration of material that has penetrated into the laryngeal vestibule, intact cough reflex Grade II = aspiration < 10 % of the bolus, intact cough reflex Grade III = aspiration of < 10 % of the bolus, reduced cough reflex or aspiration of > 10 % of the bolus, intact cough reflex Grade IV = aspiration of > 10 % of the bolus, reduced cough reflex Penetration-Aspiration Scale Score Thin Liquid via teaspoon: Result: 1= does not enter airway Thin Liquid via teaspoon Trial 2: Result: 1= does not enter airway Thin Liquid via small single sip: cup: Result: 1= does not enter airway Thin Liquid via sequential sips: cup: Result: 1= does not enter airway Thin Liquid via small single sip: cup Trial 2: Result: 1= does not enter airway Pudding: Result: 1= does not enter airway Cookie: Result: 1= does not enter airway Thin Liquid via small single sip: cup Trial 3: Result: 2= enter airway/above vocal folds/ejected Barium Tablet: Result: 1= does not enter airway Oral Phase Labial Seal: No Labial Escape Tongue Control During Bolus Hold: Cohesive bolus between tongue to palatal seal Bolus Preparation/Mastication: Minimal chewing/mashing with majority of bolus unchewed Bolus Transport/Lingual Motion: Repetitive/disorganized tongue motion Oral Residue: Residue collection on oral structures Pharyngeal Phase Initiation of Pharyngeal Swallow: Bolus head in valleculae Soft Palate Elevation: No bolus between soft palate and pharyngeal wall Laryngeal Elevation: Partial superior movement thyroid cart/partial apprx aryt-epig petiole Anterior Hyoid Excursion: Partial anterior movement Epiglottic Movement: Complete inversion Laryngeal Vestibule Closure at Height of Swallow: Complete; no air/contrast in laryngeal vestibule Pharyngeal Stripping Wave: Present - diminished Pharyngoesophageal Segment Opening: Parital distension and partial duration; parital obstruction of flow Tongue Base Retraction: Narrow column of contrast between tongue base & post. pharyngeal wall Pharyngeal Residue: Collection of residue within or on pharyngeal structures Esophageal Phase Esophageal Clearance: Complete clearance Diagnosis/Impression Diagnosis: MILD OROPHARYNGEAL DYSPHAGIA R13.12 .: Patient presents with oropharyngeal dysphagia characterized by delayed [id number] bolus transit and repetitive tongue movements during pudding trials. Minimal mastication was observed; the majority of the small Ernestina Doone cookie remained unmasticated and was not propelled posteriorly despite repeated tongue movements, requiring removal from the oral cavity. Edentulous status likely contributed to reduced bolus formation and propulsion. No aspiration was observed during the study. One instance of laryngeal penetration was noted, which was fully ejected and likely related to incomplete laryngeal elevation. An excrescence was visualized (see image below), appearing to impact pharyngoesophageal motility. Nursing was notified and GI consultation recommended for further evaluation. Diminished pharyngeal stripping and reduced tongue base retraction resulted in pharyngeal residue within the valleculae, which worsened with pudding and cookie trials. Recommendations Diet: Minced and Moist Textures and Thin Liquids Compensatory Strategies: Small Bites, Small Sips, Slow Rate, Feed only when alert, Multiple Swallows, Alternate bites/solids and sips/liquids and Remain sitting upright for 30 minutes after PO intake Supervision: 1:1 Direct Supervision Recommend Repeat Modified Barium Swallow: TBD Need for Skilled Speech Therapy Services: Yes Recommended Referrals: GI Consult Education Completed: 1. Described result of evaluation. and 4. Family/caregivers understand evaluation & agree w/ goals & tx plan. Status Active ST Patient: Active Contact Information [facility] Speech Therapy:: Kiarra Howard M.A., CCC-MANUFACTURING WORKER Speech-Language Pathologist [facility] [phone] FAX [phone] [email or web address] [address] [place] [address] ?[place] [address]
[2025-04-03 15:23] LABS: Anion Gap 11 (5-15); BUN 21 mg/dL (4-19); BUN/Creat Ratio 31.6 RATIO (10-20); Calcium,Total 9.1 mg/dL (7.6-11.0); Carbon Dioxide 23.3 mmol/L (21.0-32.0); Chloride 103 mmol/L (98-108); Estimated Creatinine Clearance 110.46 ml/min (50-250); Glucose 155 mg/dL (70-99); Potassium 3.2 mmol/L (3.3-5.1)
[2025-04-03] MEDS: proMETHazine 25 MG/ML Syringe 12.5 MG IM (17:18)
[2025-04-03] MEDS: Vancomycin Trough/Random Due 1 LAB MC (21:31)
[2025-04-03 22:05] LABS: Vancomycin, Trough Level 17.4 ug/mL (5.0-15.0)
--- NOTE | 2025-04-03 22:13 | PCM.RX.CS ---
Consult Antibiotic Management Pharmacy has been consulted to manage selected antibiotic: Vancomycin Type of Intervention Type of Consult: Follow-up Labs Labs: Sodium 137 mmol/L (133-145) 04/03/25 14:30 Potassium 3.2 mmol/L (3.3-5.1) L 04/03/25 14:30 Chloride 103 mmol/L (98-108) 04/03/25 14:30 Carbon Dioxide 23.3 mmol/L (21.0-32.0) 04/03/25 14:30 Anion Gap 11 (5-15) 04/03/25 14:30 BUN 21 mg/dL (4-19) H 04/03/25 14:30 Creatinine 0.66 mg/dL (0.70-1.20) L 04/03/25 14:30 Est GFR (MDRD) Non-Af 105 (>60) 04/03/25 14:30 BUN/Creatinine Ratio 31.6 RATIO (10-20) H 04/03/25 14:30 Glucose 155 mg/dL (70-99) H 04/03/25 14:30 Vancomycin Trough 17.4 ug/mL (5.0-15.0) H 04/03/25 21:30 Microbiology Microbiology: Microbiology 03/30/25 16:00 Sputum, Induced/Lukens Gram Stain - Final 03/30/25 16:00 Sputum, Induced/Lukens Respiratory Culture - Final Staphylococcus aureus 03/30/25 11:20 Blood Culture (Wb) - Left Wrist Blood Culture - Preliminary No growth in 48 hours. 03/30/25 11:00 Blood Culture (Wb) - Chest Blood Culture - Preliminary No growth in 48 hours. 03/30/25 11:46 Urine, Catheterized Urine Culture - Final Culture exhibits no growth. 03/31/25 08:30 Nasal Secretion MRSA (PCR) - Final 03/30/25 11:46 Urine Catheter - [place] Legionella Antigen - Final 03/30/25 11:46 Urine Catheter - [place] Streptococcus pneumoniae Antigen (M - Final 03/30/25 10:41 Mucosa - Nose SARS-CoV-2, Influenza & RSV (PCR) - Final Goal Trough Goal Trough: 15-20 mcg/mL Pharmacy Plan for Drug Dosing Pharmacy Plan for Drug Dosing: Pharmacy Service will continue to monitor and adjust dosing as required. TROUGH 17.4 @ 12.5 HOURS. NO CHANGES, FOLLOW UP TROUGH IN 2 DAYS Follow-Up Labs Follow-Up Labs: Trough: Vancomycin Date/Time Labs Ordered Labs to be done on [date and time ordered]: 04/05 @ 2883
--- NOTE | 2025-04-04 00:45 | EX.PCM.CON.G ---
HPI Consult Data Date of Consult: 04/04/25 HPI Narrative Reason for Consultation: Esophageal dysphagia HPI Narrative: TRENTON DENTON, is a 54-year-old female with a complex medical history significant for chronic HFrEF (EF 30%), poorly controlled type 2 diabetes mellitus with neuropathy and gastroparesis, nonobstructive CAD, severe PVD s/p stenting, HTN, HLD, GERD, and depression. She was recently re-admitted to [facility] ED on 03/30/2025 due to shortness of breath. She was previously hospitalized from 01/29-02/11 for acute on chronic debility secondary to pubic fractures sustained in a fall. During the current admission, she was diagnosed with bilateral pulmonary emboli, diffuse patchy interstitial alveolar infiltrates with peripheral wedge-shaped consolidation, and bilateral mild to moderate pleural effusions on CTA chest. She also presented with significantly elevated BNP (>18,000), a rising troponin trend (88 > 109), and lactic acid of 3.6. She required intubation during this hospitalization and was successfully extubated two days prior to this consultation. The patient reports nausea and vomiting with eating, which prompted this consultation. She was evaluated by speech pathology who diagnosed mild oropharyngeal dysphagia in addition to esophageal dysphagia [facility] Medical History Cardiac LV ejection fraction 10-20% Tobacco abuse Overweight (BMI 25.0-29.9) L5 vertebral fracture ESBL (extended spectrum beta-lactamase) producing bacteria infection Generalized weakness Candidiasis of breast Colitis Debility PTSD (post-traumatic stress disorder) Closed compression fracture of L3 vertebra Hypokalemia Colitis BiPAP (biphasic positive airway pressure) dependence Coronary artery disease On home oxygen therapy Rheumatoid arthritis Sleep apnea Smoker DVT (deep venous thrombosis) Seizures Amputation toe Psychiatric disorder Ischemic cardiomyopathy Diabetes type 2, uncontrolled Essential hypertension Substance abuse Alcohol abuse Depression Osteoporosis GERD (gastroesophageal reflux disease) Pulmonary embolism Myocardial infarct Pericardial effusion Hypoxemia Acute dyspnea Aftercare following surgery of the circulatory system Hx of fracture of humerus Toe amputee Hyperlipidemia CHF (congestive heart failure) CAD (coronary artery disease), mohegan coronary artery Medical History unable to obtain Home Medications ?Medication ?Instructions ?Recorded ?Last Taken ?Type aspirin 81 mg capsule 81 mg PO DAILY heart health 08/10/22 09/06/24 History clopidogrel 75 mg tablet 75 mg PO DAILY anti platelet #30 02/03/23 09/06/24 Rx tabs pantoprazole 40 mg tablet,delayed 40 mg PO DAILY reflux 04/18/23 09/06/24 History release sacubitril 24 mg-valsartan 26 mg 1 tab PO BID .bp 30 days #60 tabs 05/07/23 09/06/24 Rx tablet (Entresto) atorvastatin 80 mg tablet 80 mg PO QHS cholesterol 12/29/23 09/06/24 History gabapentin 300 mg capsule 300 mg PO TID nerve pain 12/29/23 09/06/24 History DIC 2%/RINKU 6%/LIDOC 2% IN 1 - 2 pump subdermal Q6H PRN FOR 02/14/24 09/06/24 History saltsable FEET cholecalciferol (vitamin D3) 1,250 1,250 mcg PO WE supplement 02/14/24 09/03/24 History mcg (50,000 unit) tablet spironolactone 25 mg tablet 25 mg PO DAILY water pill 30 days 02/17/24 09/06/24 Rx #0 tabs ergocalciferol (vitamin D2) 1,250 1,250 mcg PO We@1000 #0 caps 02/19/24 09/03/24 Rx mcg (50,000 unit) capsule (Vitamin D2) escitalopram oxalate 20 mg tablet 20 mg PO DAILY depression 06/29/24 09/06/24 History furosemide 20 mg tablet 20 mg PO DAILY water pill 06/29/24 09/06/24 History midodrine 2.5 mg tablet 2.5 mg PO DAILY blood pressure 06/29/24 09/06/24 History polyethylene glycol 3350 17 17 g PO BID PRN constipation 06/29/24 Unknown History gram/dose oral powder (Miralax) sennosides 8.6 mg-docusate sodium 2 tab PO BID PRN constipation 06/29/24 Unknown History 50 mg tablet (Stimulant Laxative Plus) tizanidine 4 mg tablet 4 mg PO 3XD spasm 06/29/24 09/06/24 History acetaminophen 500 mg tablet 1,000 mg (2 x 500 mg) PO Q8 #0 tabs 09/02/24 09/06/24 Rx sennosides 8.6 mg-docusate sodium 2 tab PO BID #60 tabs 09/16/24 Unknown Rx 50 mg tablet (Stimulant Laxative Plus) metoclopramide HCl 10 mg tablet 10 mg PO Q6H PRN nausea and 09/21/24 Unknown Rx (Reglan) vomiting 5 days #20 tabs nystatin 100,000 unit/gram topical 1 applic topical TID #0 grams 02/11/25 Unknown Rx powder oxycodone 5 mg tablet 5 mg PO Q4H PRN PRN pain 4-10 3 02/11/25 Unknown Rx days #12 tabs insulin glargine 100 unit/mL (3 unit subcut DM 03/30/25 Unknown History mL) subcutaneous pen (Lantus Solostar U-100 Insulin) insulin lispro 100 unit/mL 20 unit subcut DAILY DM 03/30/25 Unknown History subcutaneous pen (Humalog KwikPen (U-100) Insulin) insulin lispro 100 unit/mL 27 unit subcut DAILY DM 03/30/25 Unknown History subcutaneous pen (Humalog KwikPen (U-100) Insulin) OXYGEN - Supplemental ([facility] Pulmonary Information 04/01/25 Unknown History INFORMATIONAL USE ONLY) Allergy/AdvReac Type Severity Reaction Status Date / Time latex Allergy Hives Verified 01/29/25 15:41 Family History Mother Thyroid disorder Diabetes Hypertension Grandmother Diabetes Uncle Diabetes Aunt Diabetes Other Heart disease Family History unable to obtain Surgical History History of cholecystectomy History of appendectomy History of cholecystectomy Surgical History unable to obtain Social History household members: spouse and children housing: house Smoking Status: Unknown if ever smoked alcohol intake: never substance use type: marijuana what type of physical activity do you participate in: none do you feel safe at home: Yes ROS Constitutional Constitutional: Denies fatigue, fever(s), poor appetite, weight gain or weight loss Gastrointestinal Gastrointestinal: Denies belching, bloating, change in bowel habits, change in stool character, chewing difficulty, coffee ground emesis, constipation, cramping, diarrhea, dyspepsia, dysphagia, early satiety, excessive flatus, fecal incontinence, heartburn, hematemesis, hematochezia, hemorrhoids, loose stools, melena, nausea, odynophagia, rectal bleeding, tenesmus, vomiting or weight changes Physical Exam Const alert, oriented x3, no apparent distress and healthy appearing General Appearance: cooperative GI normal to inspection, nondistended, normoactive bowel sounds, soft to palpation, non-tender and non-distended Percussion: normal to percussion Rectal Exam: deferred Lab / Micro Data 04/03/25 14:30 04/03/25 14:30 Labs: Laboratory Results - last 24 hr 04/03/25 02:00: WBC 10.3, RBC 3.28 L, Hgb 8.8 L, Hct 27.9 L, MCV 85.1, MCH 26.8 L, MCHC 31.5 L, RDW Std Deviation 44.1 H, RDW Coeff of Spencer 14.1, Plt Count 206, MPV 9.1, Immature Gran % (Auto) 0.400, Neut % (Auto) 75.0 H, Lymph % (Auto) 14.7 L, [place] % (Auto) 7.3, Eos % (Auto) 2.2, Baso % (Auto) 0.4, Absolute Neuts (auto) 7.7, Absolute Lymphs (auto) 1.51, Nucleated RBC % 0, APTT 36.2, Sodium 139, Potassium 3.4, Chloride 106, Carbon Dioxide 22.9, Anion Gap 10, BUN 31 H, Creatinine 0.84, Estim Creat Clear Calc 86.30, Est GFR (MDRD) Non-Af 83, BUN/Creatinine Ratio 36.7 H, Glucose 122 H, Calcium 8.7 04/03/25 04:59: POC Glucose 121 H 04/03/25 08:45: APTT 58.2 H 04/03/25 11:06: POC Glucose 141 H 04/03/25 14:30: WBC 11.8 H, RBC 3.59 L, Hgb 9.7 L, Hct 30.0 L, MCV 83.6, MCH 27.0, MCHC 32.3, RDW Std Deviation 41.7, RDW Coeff of Spencer 13.8, Plt Count 195, MPV 9.4, Immature Gran % (Auto) 0.400, Neut % (Auto) 86.1 H, Lymph % (Auto) 7.8 L, [place] % (Auto) 4.8, Eos % (Auto) 0.6, Baso % (Auto) 0.3, Absolute Neuts (auto) 10.2 H, Absolute Lymphs (auto) 0.92, Nucleated RBC % 0, Sodium 137, Potassium 3.2 L, Chloride 103, Carbon Dioxide 23.3, Anion Gap 11, BUN 21 H, Creatinine 0.66 L, Estim Creat Clear Calc 110.46, Est GFR (MDRD) Non-Af 105, BUN/Creatinine Ratio 31.6 H, Glucose 155 H, Calcium 9.1 04/03/25 16:35: POC Glucose 126 H 04/03/25 21:30: Vancomycin Trough 17.4 H 04/03/25 23:52: POC Glucose 108 H Rhythm Strip Rhythm Strip: Sinus Rhythm Imaging Radiology Impression Abdomen/Pelvis CT 04/03/25 10:02 IMPRESSION: 1. Cholecystectomy 2. Bilateral adrenal adenomas are benign. 3. Fluid contents of the colon suggesting a diarrheal state. No wall thickening or pericholecystic fluid. Diverticulosis without diverticulitis. Appendectomy. 4. Decreased bone mineralization. Compression fracture L3, L4 and L5. Severe compression fracture of L3. 5. Slight increased density of the renal nephrogram suggesting some retained contrast material. Correlate with renal function to ensure no evidence of contrast induced nephropathy. No collecting system dilation is present. Incidental simple cyst left upper pole, Bosniak 1. No follow-up required. Reading Location: [id number] Assessment & Plan Assessment/Plan (1) Esophageal dysphagia: (2) Oropharyngeal dysphagia: (3) Cardiac LV ejection fraction 10-20%: (4) Coronary artery disease: (5) Acute on chronic HFrEF (heart failure with reduced ejection fraction): (6) Pulmonary infarction: (7) Bilateral pulmonary embolism: (8) Pulmonary edema: PLAN: ?54-year-old female with multiple comorbidities presenting with nausea and vomiting upon eating. The primary concern is potential contribution of her pre-existing severe diabetic gastroparesis, which is likely exacerbated by her current critical illness, recent intubation, and potential underlying diabetic neuropathy progression . The recent extubation may also be a contributing factor to swallowing difficulties. Craig issues: Nausea and vomiting with eating:?Likely secondary to underlying diabetic gastroparesis, potentially worsened by recent critical illness. Esophageal and mild oropharyngeal dysphagia:?Confirmed by speech pathology, requiring careful management of diet and swallowing techniques. Poorly controlled diabetes mellitus:?Contributes significantly to long-term complications, including neuropathy and gastroparesis . Acute on chronic heart failure:?Stable since recent acute exacerbation management. Recent bilateral PE:?Management per primary team. Differential diagnoses for current symptoms include: Diabetic gastroparesis (most likely given history) . Medication side effects (e.g., pain medications). GERD exacerbation. Mechanical obstruction (less likely given history). Post-extubation swallowing dysfunction. Plan Diagnostic: Review all current medications for potential side effects contributing to nausea/vomiting. Consider a gastric emptying study (GES) once the patient is medically stable and off all medications that could affect motility, to objectively assess the severity of gastroparesis if clinical picture is unclear or symptoms persist despite medical management. Therapeutic: Continue diet as recommended by speech pathology (e.g., pureed diet, thickened liquids, small frequent meals). Initiate pro-motility agent (e.g., metoclopramide) to improve gastric emptying, monitoring for potential side effects . Initiate antiemetics (e.g., ondansetron) for symptomatic relief of nausea and vomiting. Strict glycemic control is crucial for managing diabetic complications; collaborate with the endocrinology team/primary team on optimizing her glucose management . Ensure appropriate hydration status Upper endoscopy to evaluate upper GI tract.. Charges/Coding Visit Charges Inpatient E&M: 63995 Init Hosp L3
[2025-04-04 03:00] VITALS: BP 133/61; PULSE 85; PULSE 90; RESP 19; TEMP 36.2; O2SAT 97
[2025-04-04] MEDS: 0.9% Saline Lock 10 ML Syringe IV ×5 (03:45→22:03)
[2025-04-04 06:00] VITALS: BMI 30.8
[2025-04-04 06:07] LABS: Hematocrit 28.9 % (37-47); Hemoglobin 9.3 g/dL (12.0-15.0); Immature Granulocytes Count 0.070 X10^3/uL (0.0-0.0); Mean Corp Hgb Conc 32.2 g/dL (32-36); Mean Corpuscular Volume 83.5 fL (81-99); Mean Platelet Vol. 9.5 fl (6.2-12.0); NRBC Flagged by Analyzer 0 % (0-5); Platelet Count 196 K/mm3 (150-450); RBC Distribution Width CV 13.5 % (11.6-14.6); RBC Distribution Width SD 40.6 fl (35.1-43.9); Red Blood Count 3.46 M/mm3 (4.2-5.4); White Blood Count 11.6 K/mm3 (4.4-11.0)
[2025-04-04 06:33] LABS: Anion Gap 11 (5-15); BUN 21 mg/dL (4-19); BUN/Creat Ratio 27.2 RATIO (10-20); Calcium,Total 9.0 mg/dL (7.6-11.0); Carbon Dioxide 22.3 mmol/L (21.0-32.0); Chloride 104 mmol/L (98-108); Estimated Creatinine Clearance 91.55 ml/min (50-250); Glucose 101 mg/dL (70-99); Potassium 3.2 mmol/L (3.3-5.1)
[2025-04-04 08:00] VITALS: PULSE 95
--- NOTE | 2025-04-04 08:04 | PN.CARD_ITS ---
Subjective Subjective Patient seen and evaluated. Doing well successfully extubated. Objective Data Vital Signs: Vital Signs Temp Pulse Resp BP Pulse Ox O2 Del Method O2 Flow Rate 97.2 F L 90 19 H 133/61 H 97 Nasal Cannula 1 04/04/25 03:00 04/04/25 03:00 04/04/25 03:00 04/04/25 03:00 04/04/25 03:00 04/04/25 03:00 04/04/25 03:00 FiO2 30 04/02/25 08:00 Oxygen Flow Rate (L/min) 1 Oxygen Delivery Method Nasal Cannula Weight: 192 lb 0.362 oz Body Mass Index (BMI) 30.8 Intake & Output: Intake and Output for Last 24 Hours 04/02/25 04/03/25 04/04/25 23:59 23:59 23:59 Intake Total 2709.32 / 2709.32 1390.00 / 1390.00 Output Total 1775 / 1775 1000 / 1000 Balance 934.32 / 934.32 390 / 390.00 Lab / Micro Data 04/04/25 05:55 04/04/25 05:55 Labs: Laboratory Results - last 24 hr 04/03/25 08:45: APTT 58.2 H 04/03/25 11:06: POC Glucose 141 H 04/03/25 14:30: WBC 11.8 H, RBC 3.59 L, Hgb 9.7 L, Hct 30.0 L, MCV 83.6, MCH 27.0, MCHC 32.3, RDW Std Deviation 41.7, RDW Coeff of Spencer 13.8, Plt Count 195, MPV 9.4, Immature Gran % (Auto) 0.400, Neut % (Auto) 86.1 H, Lymph % (Auto) 7.8 L, Stoddard % (Auto) 4.8, Eos % (Auto) 0.6, Baso % (Auto) 0.3, Absolute Neuts (auto) 10.2 H, Absolute Lymphs (auto) 0.92, Nucleated RBC % 0, Sodium 137, Potassium 3.2 L, Chloride 103, Carbon Dioxide 23.3, Anion Gap 11, BUN 21 H, Creatinine 0.66 L, Estim Creat Clear Calc 110.46, Est GFR (MDRD) Non-Af 105, BUN/Creatinine Ratio 31.6 H, Glucose 155 H, Calcium 9.1 04/03/25 16:35: POC Glucose 126 H 04/03/25 21:30: Vancomycin Trough 17.4 H 04/03/25 23:52: POC Glucose 108 H 04/04/25 05:55: WBC 11.6 H, RBC 3.46 L, Hgb 9.3 L, Hct 28.9 L, MCV 83.5, MCH 26.9 L, MCHC 32.2, RDW Std Deviation 40.6, RDW Coeff of Spencer 13.5, Plt Count 196, MPV 9.5, Immature Gran % (Auto) 0.600, Neut % (Auto) 81.2 H, Lymph % (Auto) 9.4 L, Stoddard % (Auto) 7.4, Eos % (Auto) 1.0, Baso % (Auto) 0.4, Absolute Neuts (auto) 9.4 H, Absolute Lymphs (auto) 1.09, Nucleated RBC % 0, Sodium 137, Potassium 3.2 L, Chloride 104, Carbon Dioxide 22.3, Anion Gap 11, BUN 21 H, Creatinine 0.79, Estim Creat Clear Calc 91.55, Est GFR (MDRD) Non-Af 90, BUN/Creatinine Ratio 27.2 H, Glucose 101 H, Calcium 9.0 04/04/25 06:00: POC Glucose 83 Rhythm Strip Rhythm Strip: Sinus Rhythm Cardiology Labs/Tests 04/03/25 08:45: APTT 58.2 H 04/03/25 14:30: WBC 11.8 H, RBC 3.59 L, Hgb 9.7 L, Hct 30.0 L, MCV 83.6, MCH 27.0, MCHC 32.3, Plt Count 195, MPV 9.4, Immature Gran % (Auto) 0.400, Neut % (Auto) 86.1 H, Lymph % (Auto) 7.8 L, Stoddard % (Auto) 4.8, Eos % (Auto) 0.6, Baso % (Auto) 0.3, Absolute Neuts (auto) 10.2 H, Nucleated RBC % 0, Sodium 137, P otassium 3.2 L, Chloride 103, Carbon Dioxide 23.3, Anion Gap 11, BUN 21 H, C reatinine 0.66 L, Est GFR (MDRD) Non-Af 105, BUN/Creatinine Ratio 31.6 H, G lucose 155 H, Calcium 9.1 04/04/25 05:55: WBC 11.6 H, RBC 3.46 L, Hgb 9.3 L, Hct 28.9 L, MCV 83.5, MCH 26.9 L, MCHC 32.2, Plt Count 196, MPV 9.5, Immature Gran % (Auto) 0.600, Neut % (Auto) 81.2 H, Lymph % (Auto) 9.4 L, Stoddard % (Auto) 7.4, Eos % (Auto) 1.0, Baso % (Auto) 0.4, Absolute Neuts (auto) 9.4 H, Nucleated RBC % 0, Sodium 137, P otassium 3.2 L, Chloride 104, Carbon Dioxide 22.3, Anion Gap 11, BUN 21 H, Creatinine 0.79, Est GFR (MDRD) Non-Af 90, BUN/Creatinine Ratio 27.2 H, Glucose 101 H, Calcium 9.0 Rhythm: EKG: ECHO: Stress Test: Cardiac Cath: PCI: CT Surgery: Holter monitor: EPS: PPM: CXR: Chest CT Scan: Radiography Diagnostic Testing: Radiology Impression Abdomen/Pelvis CT 04/03/25 10:02 IMPRESSION: 1. Cholecystectomy 2. Bilateral adrenal adenomas are benign. 3. Fluid contents of the colon suggesting a diarrheal state. No wall thickening or pericholecystic fluid. Diverticulosis without diverticulitis. Appendectomy. 4. Decreased bone mineralization. Compression fracture L3, L4 and L5. Severe compression fracture of L3. 5. Slight increased density of the renal nephrogram suggesting some retained contrast material. Correlate with renal function to ensure no evidence of contrast induced nephropathy. No collecting system dilation is present. Incidental simple cyst left upper pole, Bosniak 1. No follow-up required. Reading Location: [facility] Physical Exam HEENT normocephalic and head/scalp atraumatic Mouth: endotracheal tube in place and OG tube in place Eyes PERRL, conjunctivae normal and no scleral icterus Neck supple General: trachea midline Chest inspection of chest normal Resp Auscultation: diminished lung sounds; Negative for rales, rhonchi or wheezes Cardio regular rate and regular rhythm GI normal to inspection, nondistended, normoactive bowel sounds Extremity General Extremity: edema bilateral lower extremity; Negative for clubbing Skin no rashes or lesions noted Neuro Neuro Narrative: Alert and able to follow simple commands appropriately. Assessment & Plan Assessment/Plan (1) Cardiac LV ejection fraction 10-20%: PLAN: She does have evidence of a nonischemic cardiomyopathy. The plan to be to continue with guideline directed medical therapy * I will recommend starting a beta-linda with carvedilol 6.25 mg twice a day * Continue sacubitril * Continue low-dose Lasix * SGLT2 inhibitor * Statin (2) Acute on chronic HFrEF (heart failure with reduced ejection fraction): PLAN: She does have evidence of acute on chronic congestive heart failure. She will continue with intravenous diuretics and subsequently oral diuretics in the therapy as noted above. After she is discharged she will follow-up in the office. Thank you for allowing me to participate in the care of your patient. Please don't hesitate to call if any issues arise.
--- NOTE | 2025-04-04 08:13 | PCM.PN.HOSP ---
Reason for Visit Chief Complaint: Shortness of breath Objective Data Objective Data Vital Signs: Vital Signs Temp Pulse Resp BP Pulse Ox O2 Del Method O2 Flow Rate 97.2 F L 90 19 H 133/61 H 97 Nasal Cannula 1 04/04/25 03:00 04/04/25 03:00 04/04/25 03:00 04/04/25 03:00 04/04/25 03:00 04/04/25 03:00 04/04/25 03:00 FiO2 30 04/02/25 08:00 Oxygen Flow Rate (L/min) 1 Oxygen Delivery Method Nasal Cannula Weight: 192 lb 0.362 oz Body Mass Index (BMI) 30.8 Intake & Output: Intake and Output for Last 24 Hours 04/02/25 04/03/25 04/04/25 23:59 23:59 23:59 Intake Total 2709.32 / 2709.32 1390.00 / 1390.00 Output Total 1775 / 1775 1000 / 1000 Balance 934.32 / 934.32 390 / 390.00 Lab / Micro Data 04/04/25 05:55 04/04/25 05:55 Labs: Laboratory Results - last 24 hr 04/03/25 08:45: APTT 58.2 H 04/03/25 11:06: POC Glucose 141 H 04/03/25 14:30: WBC 11.8 H, RBC 3.59 L, Hgb 9.7 L, Hct 30.0 L, MCV 83.6, MCH 27.0, MCHC 32.3, RDW Std Deviation 41.7, RDW Coeff of Spencer 13.8, Plt Count 195, MPV 9.4, Immature Gran % (Auto) 0.400, Neut % (Auto) 86.1 H, Lymph % (Auto) 7.8 L, Green % (Auto) 4.8, Eos % (Auto) 0.6, Baso % (Auto) 0.3, Absolute Neuts (auto) 10.2 H, Absolute Lymphs (auto) 0.92, Nucleated RBC % 0, Sodium 137, Potassium 3.2 L, Chloride 103, Carbon Dioxide 23.3, Anion Gap 11, BUN 21 H, Creatinine 0.66 L, Estim Creat Clear Calc 110.46, Est GFR (MDRD) Non-Af 105, BUN/Creatinine Ratio 31.6 H, Glucose 155 H, Calcium 9.1 04/03/25 16:35: POC Glucose 126 H 04/03/25 21:30: Vancomycin Trough 17.4 H 04/03/25 23:52: POC Glucose 108 H 04/04/25 05:55: WBC 11.6 H, RBC 3.46 L, Hgb 9.3 L, Hct 28.9 L, MCV 83.5, MCH 26.9 L, MCHC 32.2, RDW Std Deviation 40.6, RDW Coeff of Spencer 13.5, Plt Count 196, MPV 9.5, Immature Gran % (Auto) 0.600, Neut % (Auto) 81.2 H, Lymph % (Auto) 9.4 L, Green % (Auto) 7.4, Eos % (Auto) 1.0, Baso % (Auto) 0.4, Absolute Neuts (auto) 9.4 H, Absolute Lymphs (auto) 1.09, Nucleated RBC % 0, Sodium 137, Potassium 3.2 L, Chloride 104, Carbon Dioxide 22.3, Anion Gap 11, BUN 21 H, Creatinine 0.79, Estim Creat Clear Calc 91.55, Est GFR (MDRD) Non-Af 90, BUN/Creatinine Ratio 27.2 H, Glucose 101 H, Calcium 9.0 04/04/25 06:00: POC Glucose 83 Micro: Microbiology 03/30/25 16:00 Sputum, Induced/Lukens Gram Stain - Final 03/30/25 16:00 Sputum, Induced/Lukens Respiratory Culture - Final Staphylococcus aureus 03/30/25 11:20 Blood Culture (Wb) - Left Wrist Blood Culture - Preliminary No growth in 48 hours. 03/30/25 11:00 Blood Culture (Wb) - Chest Blood Culture - Preliminary No growth in 48 hours. 03/30/25 11:46 Urine, Catheterized Urine Culture - Final Culture exhibits no growth. 03/31/25 08:30 Nasal Secretion MRSA (PCR) - Final 03/30/25 11:46 Urine Catheter - Hathaway Legionella Antigen - Final 03/30/25 11:46 Urine Catheter - Hathaway Streptococcus pneumoniae Antigen (M - Final 03/30/25 10:41 Mucosa - Nose SARS-CoV-2, Influenza & RSV (PCR) - Final Radiography Diagnostic Testing: Radiology Impression Abdomen/Pelvis CT 04/03/25 10:02 IMPRESSION: 1. Cholecystectomy 2. Bilateral adrenal adenomas are benign. 3. Fluid contents of the colon suggesting a diarrheal state. No wall thickening or pericholecystic fluid. Diverticulosis without diverticulitis. Appendectomy. 4. Decreased bone mineralization. Compression fracture L3, L4 and L5. Severe compression fracture of L3. 5. Slight increased density of the renal nephrogram suggesting some retained contrast material. Correlate with renal function to ensure no evidence of contrast induced nephropathy. No collecting system dilation is present. Incidental simple cyst left upper pole, Bosniak 1. No follow-up required. Reading Location: [id number] Rhythm Strip Rhythm Strip: Sinus Rhythm Physical Exam Narrative Seen and examined. Patient is nauseated but no vomiting has subsided. BMS was done and found suspicion of soft tissue excrescence was visualized at pharyngoesophageal level to impact its motility She is able to swallow pills. Physical exam Seen and examined General: Alert, Oriented x3, Cooperative. BMI 30.9 kg/m? HEENT: Atraumatic, PERRLA, EOMI, Normocephalic. Oral: No Gingival or Mucosal Lesions/ Ulcerations Neck: Supple, No JVD, Negative Carotid Bruits Chest wall/Lungs: Air entry diminished in bilateral lung bases. No crepitation/rhonchi Cardiovascular: Regular rate and rhythm, Normal S1,S2, systolic murmur Abdomen: Bowel Sounds Present, Soft, Non Tender, Non-Distended : No dysuria. No renal angle tenderness. No suprapubic tenderness. Extremities: Left foot transmetatarsal amputation. Mild edema, Capillary Refill Less than 3 Seconds Skin: No rashes, No breakdown Musculoskeletal: ROM limited with pain in the joints. No Tenderness to Palpation of Joints or Extremities Neurological: Cranial nerves II-XII grossly intact, DTR 2+/4. No acute focal neurological deficit. Psych/Mental Status: Flat affect Assessment & Plan Assessment/Plan (1) Acute hypoxemic respiratory failure: (2) Acute on chronic HFrEF (heart failure with reduced ejection fraction): (3) Bilateral pulmonary embolism: PLAN: Plan Patient is a 54-year-old lady who presented to the emergency department with progressive shortness of breath studies demonstrated bilateral PE with diffuse patchy interstitial alveolar infiltrates with peripheral wedge-shaped consolidation most severe at the lung bases. Patient was initially placed on noninvasive ventilation BiPAP however respiratory status deteriorated resulting in patient being intubated and admitted to the intensive care unit 1. Acute hypoxic respiratory failure ? Due to combination of bilateral pulmonary embolism, acute congestive heart failure with reduced ejection fraction, suspected pneumonia. Patient was initially manage on BiPAP however respiratory status continued to deteriorate resulting in patient being intubated and subsequently admitted to the intensive care unit. Consult was placed to park manager/pulmonary medicine. Management of patient events deferred ? 04/01/2025; attempt at weaning this morning was unsuccessful after patient had a bout of emesis. ? 04/02/2025; patient awake on the vent currently undergoing weaning trial 04/03: Patient extubated yesterday.. She is nauseated and vomiting. Throat irritation. Speech therapy ordered 04/04: Vomiting has subsided. Transferred to PCU. Currently 97% on room air. Acute hypoxic respiratory failure resolved. 2. Acute bilateral pulmonary embolism ? With suspected pulmonary infarction. CT of the chest obtained did show partly occlusive thrombus visible in the proximal right lower lobe pulmonary arteries, partly occlusive clot visible to the right upper lobe pulmonary vessels, nonocclusive clot visible in the left upper lobe proximal branch vessels, diffuse patchy interstitial and alveolar infiltrate with peripheral wedge-shaped consolidation, most severe at the bases.Patient started on heparin ? 04/01/2025; patient remains on heparin ? 04/02/2025; patient remains on heparin with plans to transition to DOAC once patient is extubated 04/03: H&H 8.28//27.9%. Transition IV heparin drip to enoxaparin 1 mg Q12 hourly subcu. 04/04: H&H 9.3/28.9%. Enoxaparin replaced with Eliquis therapeutic dose of PE dose; 10 mg twice daily for 1 week and then 5 mg twice daily to continue 3. Acute on chronic congestive heart failure with reduced ejection fraction ?2D echo demonstrated estimated LVEF of 20% with moderately enlarged left atrium, moderate mitral valve insufficiency and trivial pericardial effusion. Patient previous EF was 30%. Patient is on Aldactone as well as furosemide. Consult placed to cardiology ? 04/01/2025; patient was seen in consultation by Dr. Fajardo with cardiology case discussed with him plan is to resume patient Entresto when hemodynamically stable 04/03: Heart rate and blood pressure control 04/04: Discussed with coordinate measuring machine technician. Started on carvedilol 6.25 mg twice daily. Continue above medications including low-dose Lasix, Entresto, SGLT2 inhibitor and statin 4. Sepsis secondary to pneumonia ? Patient was found to have elevated lactic acid level with evidence of endorgan dysfunction?respiratory failure. Patient did receive IV antibiotics cultures sent continued with antibiotics pending receipt of culture results ? 04/01/2025 patient sputum cultures positive for MRSA added vancomycin to treatment 04/03: Sputum culture growing rare Staph aureus, 1+ GPC, 1+ GPR and yeastlike organism. 04/04: Patient was seen by ID. Sputum culture with rare MRSA. Continue IV vancomycin. Plan on short course of p.o. doxycycline at discharge to complete total of 7 days of antibiotics. 5. Diabetes mellitus type 2 with complications including diabetic neuropathy as well as gastroparesis ? Patient recent hemoglobin A1c was 13.2 on 01/29/2025. Glucose levels were markedly elevated on admission. Patient was started on long-acting insulin in addition to Accu-Cheks every 6 hours with sliding scale coverage. Subsequent adjustment made to patient long-acting insulin ? 04/01/2025; patient did develop hypoglycemia following adjustments of her insulin regimen made further adjustment by decreasing her dose. Plan is to continue to monitor and adjust dose as needed 04/03: Accu-Cheks, glucose profile is low. Lantus dose decreased. Humalog scheduled dose discontinued. Accu-Chek before meals and at bedtime with Humalog sliding scale coverage and hypoglycemia protocol. 6. Peripheral arterial disease ? Previous stent about 1 year ago Patient is on recommended medications including dual antiplatelet therapy as well as statin therapy. Plan is for patient to follow-up as outpatient 7. GERD/possible esophagitis ? Patient is on PPI 8. Chronic hypotension ? Patient is on midodrine. Held on admission 9. Dyslipidemia ?Patient is on statin therapy, continued at home dose 10. Tobacco dependence Plan is to halfway house counselor patient on cessation once of the event 11. Chronic back pain ? Secondary to chronic compression fractures plan is to continue with PT OT as tolerated 12. Anemia ? Secondary to chronic disorder monitoring H&H and transfuse if patient becomes symptomatic or hemoglobin falls below 7 ? 04/02/2025; patient hemoglobin remains low at 8.3 13. History of depression with anxiety ? Patient is on escitalopram plan is to resume following extubation 14. Vitamin D deficiency ? Patient is on vitamin D supplementation 15. Hypokalemia ? Corrected per protocol repeat potassium levels ordered for a.m. ? 04/02/2025; potassium remains low additional potassium given Microbiology Past 72 Hours 03/30/25 16:00 Sputum, Induced/Lukens Gram Stain - Final 03/30/25 16:00 Sputum, Induced/Lukens Respiratory Culture - Final Staphylococcus aureus 03/30/25 11:20 Blood Culture (Wb) - Left Wrist Blood Culture - Preliminary No growth in 48 hours. 03/30/25 11:00 Blood Culture (Wb) - Chest Blood Culture - Preliminary No growth in 48 hours. 03/30/25 11:46 Urine, Catheterized Urine Culture - Final Culture exhibits no growth. Laboratory Results 04/03/25 08:45: APTT 58.2 H 04/03/25 11:06: POC Glucose 141 H 04/03/25 14:30: WBC 11.8 H, RBC 3.59 L, Hgb 9.7 L, Hct 30.0 L, MCV 83.6, MCH 27.0, MCHC 32.3, RDW Std Deviation 41.7, RDW Coeff of Spencer 13.8, Plt Count 195, MPV 9.4, Immature Gran % (Auto) 0.400, Neut % (Auto) 86.1 H, Lymph % (Auto) 7.8 L, Green % (Auto) 4.8, Eos % (Auto) 0.6, Baso % (Auto) 0.3, Absolute Neuts (auto) 10.2 H, Absolute Lymphs (auto) 0.92, Nucleated RBC % 0, Sodium 137, Potassium 3.2 L, Chloride 103, Carbon Dioxide 23.3, Anion Gap 11, BUN 21 H, Creatinine 0.66 L, Estim Creat Clear Calc 110.46, Est GFR (MDRD) Non-Af 105, BUN/Creatinine Ratio 31.6 H, Glucose 155 H, Calcium 9.1 04/03/25 16:35: POC Glucose 126 H 04/03/25 21:30: Vancomycin Trough 17.4 H 04/03/25 23:52: POC Glucose 108 H 04/04/25 05:55: WBC 11.6 H, RBC 3.46 L, Hgb 9.3 L, Hct 28.9 L, MCV 83.5, MCH 26.9 L, MCHC 32.2, RDW Std Deviation 40.6, RDW Coeff of Spencer 13.5, Plt Count 196, MPV 9.5, Immature Gran % (Auto) 0.600, Neut % (Auto) 81.2 H, Lymph % (Auto) 9.4 L, Green % (Auto) 7.4, Eos % (Auto) 1.0, Baso % (Auto) 0.4, Absolute Neuts (auto) 9.4 H, Absolute Lymphs (auto) 1.09, Nucleated RBC % 0, Sodium 137, Potassium 3.2 L, Chloride 104, Carbon Dioxide 22.3, Anion Gap 11, BUN 21 H, Creatinine 0.79, Estim Creat Clear Calc 91.55, Est GFR (MDRD) Non-Af 90, BUN/Creatinine Ratio 27.2 H, Glucose 101 H, Calcium 9.0 04/04/25 06:00: POC Glucose 83 Clinical Impression(s) from Imaging Studies Chest X-Ray 03/30/25 10:26 IMPRESSION: Prominent bilateral airspace disease is seen, predominantly in the mid to lower lung zones. Findings are most concerning for Pulmonary Edema; cannot exclude superimposed pneumonitis. No definite pleural effusion is seen. No pneumothorax is noted. The cardiomediastinal silhouette is stable, without evidence of cardiomegaly. Generalized osteopenia is seen. No interval osseous change is noted. Reading Location: [facility] Chest CTA 03/30/25 11:55 IMPRESSION: There is an enlarged precarinal lymph node measuring 2.3 x 1.4 cm, image 179/[id number]. There is partly occlusive thrombus visible in the proximal right lower lobe pulmonary arteries, image [id number]. There is partly occlusive clot visible to the right upper lobe pulmonary vessels, image 143/265. There is nonocclusive clot visible in the left upper lobe proximal branch vessels, image 161/265. There is diffuse patchy interstitial and alveolar infiltrate with peripheral wedge-shaped consolidation, most severe at the bases. There is a 2.3 cm right pleural effusion. There is a 3.4 cm left pleural effusion. There is a 2 cm right adrenal nodule, Hounsfield units = 43. There is a 1.9 cm left adrenal nodule, Hounsfield units = 28. There is a 2.1 cm cyst at the upper pole of the left kidney. Critical results were discussed with Dr. Thomas by Dr. Gaytan at the time of dictation. Reading Location: [facility] Echocardiogram 03/30/25 14:01 Interpretation Summary Moderately dilated left ventricular cavity. Severe generalized hypokinesis with apical akinesis. Estimated LVEF 20%. At least stage I diastolic dysfunction. The left atrium is moderately enlarged. Moderate (2+) mitral valve insufficiency. Trivial pericardial effusion. The study was technically difficult. Ordering Physician: Jonas Justin Performed By: Vaughn Waters, [facility] Venous Doppler Study 03/30/25 14:04 Interpretation Summary Deep veins of the bilateral lower extremities are patent and compressible segmentally. There is no evidence of bilateral lower extremity deep vein thrombosis. The bilateral great saphenous veins appear patent and compressible segmentally. Ordering Physician: Jonas Justin Referring Physician: Zohreh Pratt Performed By: Tiffany Rosado, EDMOND, RVT Chest X-Ray 03/30/25 16:05 IMPRESSION: 1. Endotracheal tube tip 5.1 cm above the keanu. 2. Enteric tube appears appropriately positioned, but distal tip not well-visualized. 3. Unchanged small bilateral pleural effusions and perihilar edema/consolidation. Reading Location: [id number] Chest X-Ray 03/30/25 23:30 IMPRESSION: Support lines/tubes in appropriate positioning, as above. Unchanged small pleural effusions and bilateral patchy airspace opacities. Reading Location: [id number] Chest X-Ray 03/31/25 08:25 IMPRESSION: As above. Reading Location: [id number] Abdomen/Pelvis CT 04/03/25 10:02 IMPRESSION: 1. Cholecystectomy 2. Bilateral adrenal adenomas are benign. 3. Fluid contents of the colon suggesting a diarrheal state. No wall thickening or pericholecystic fluid. Diverticulosis without diverticulitis. Appendectomy. 4. Decreased bone mineralization. Compression fracture L3, L4 and L5. Severe compression fracture of L3. 5. Slight increased density of the renal nephrogram suggesting some retained contrast material. Correlate with renal function to ensure no evidence of contrast induced nephropathy. No collecting system dilation is present. Incidental simple cyst left upper pole, Bosniak 1. No follow-up required. Reading Location: [id number] Charges/Coding Visit Charges Inpatient E&M: 20792 Subs Hosp L3
[2025-04-04 08:20] VITALS: BP 156/90; PULSE 95; RESP 20; TEMP 35.8; O2SAT 97
[2025-04-04] MEDS: 0.9% Normal Saline (250mL Bag) 250 ML 15 ML IV ×2 (08:30→21:02)
[2025-04-04] MEDS: Pantoprazole Sodium 40 MG in 0.9% Normal Saline (100mL MB+) 100 ML 330 MG IV (08:51)
[2025-04-04] MEDS: APIXABAN 5 MG TABLET 10 MG PO ×2 (09:12→21:01)
[2025-04-04] MEDS: SACUBITRIL/VALSARTAN 24/26 MG TABLET 1 EACH PO ×2 (09:13→21:01)
[2025-04-04] MEDS: Vancomycin HCl 1,000 MG in 0.9% Normal Saline (250mL Bag) 250 ML 250 MG IV ×2 (09:15→21:03)
[2025-04-04 11:34] VITALS: BP 136/76; PULSE 88; RESP 14; TEMP 36.6; O2SAT 99
[2025-04-04] MEDS: proMETHazine 25 MG/ML Syringe 12.5 MG IM (11:53)
[2025-04-04 17:18] VITALS: BP 144/79; PULSE 90; RESP 16; TEMP 36.6; O2SAT 97
[2025-04-04 21:00] VITALS: BP 106/56; PULSE 84; RESP 18; TEMP 36.4; O2SAT 94
[2025-04-04] MEDS: MELATONIN 3 MG TABLET PO (22:03)
[2025-04-05 03:15] VITALS: BP 103/58; PULSE 77; RESP 18; TEMP 36.4; O2SAT 98
[2025-04-05] MEDS: 0.9% Saline Lock 10 ML Syringe IV ×3 (04:04→11:25)
[2025-04-05 04:34] LABS: Hematocrit 27.6 % (37-47); Hemoglobin 8.9 g/dL (12.0-15.0); Immature Granulocytes Count 0.060 X10^3/uL (0.0-0.0); Mean Corp Hgb Conc 32.2 g/dL (32-36); Mean Corpuscular Volume 82.9 fL (81-99); Mean Platelet Vol. 9.7 fl (6.2-12.0); NRBC Flagged by Analyzer 0 % (0-5); Platelet Count 201 K/mm3 (150-450); RBC Distribution Width CV 13.3 % (11.6-14.6); RBC Distribution Width SD 40.5 fl (35.1-43.9); Red Blood Count 3.33 M/mm3 (4.2-5.4); White Blood Count 10.6 K/mm3 (4.4-11.0)
[2025-04-05 04:51] LABS: Anion Gap 10 (5-15); BUN 24 mg/dL (4-19); BUN/Creat Ratio 20.6 RATIO (10-20); Calcium,Total 8.4 mg/dL (7.6-11.0); Carbon Dioxide 23.1 mmol/L (21.0-32.0); Chloride 103 mmol/L (98-108); Estimated Creatinine Clearance 62.89 ml/min (50-250); Glucose 162 mg/dL (70-99); Potassium 2.8 mmol/L (3.3-5.1)
[2025-04-05 04:58] VITALS: BMI 30.4
--- NOTE | 2025-04-05 08:53 | PN.CARD_ITS ---
Subjective Subjective Patient feels better however mild nausea post breakfast. Afebrile. Rhythm stable on the monitor without any hemodynamic changes or arrhythmia Objective Data Vital Signs: Vital Signs Temp Pulse Resp BP Pulse Ox O2 Del Method O2 Flow Rate 97.6 F L 77 18 103/58 L 98 Room Air 1 04/05/25 03:15 04/05/25 03:15 04/05/25 03:15 04/05/25 03:15 04/05/25 03:15 04/05/25 08:21 04/04/25 03:00 FiO2 30 04/02/25 08:00 Oxygen Flow Rate (L/min) 1 Oxygen Delivery Method Room Air Weight: 189 lb 9.561 oz Body Mass Index (BMI) 30.4 Intake & Output: Intake and Output for Last 24 Hours 04/03/25 04/04/25 04/05/25 23:59 23:59 22:59 Intake Total 1390.00 / 1390.00 1867.0 / 1867.0 480 / 480 Output Total 1000 / 1000 500 / 500 Balance 390 / 390.00 1367.0 / 1367.0 480 / 480 Lab / Micro Data Attestation: I reviewed the patient's lab results. 04/05/25 04:09 04/05/25 04:09 Labs: Laboratory Results - last 24 hr 04/04/25 11:57: POC Glucose 135 H 04/04/25 17:12: POC Glucose 146 H 04/04/25 21:09: POC Glucose 249 H 04/05/25 04:09: WBC 10.6, RBC 3.33 L, Hgb 8.9 L, Hct 27.6 L, MCV 82.9, MCH 26.7 L, MCHC 32.2, RDW Std Deviation 40.5, RDW Coeff of Spencer 13.3, Plt Count 201, MPV 9.7, Immature Gran % (Auto) 0.600, Neut % (Auto) 75.4 H, Lymph % (Auto) 13.0 L, Morrison % (Auto) 9.2, Eos % (Auto) 1.5, Baso % (Auto) 0.3, Absolute Neuts (auto) 8.0 H, Absolute Lymphs (auto) 1.38, Nucleated RBC % 0, Sodium 137, Potassium 2.8 L, Chloride 103, Carbon Dioxide 23.1, Anion Gap 10, BUN 24 H, Creatinine 1.15, Estim Creat Clear Calc 62.89, Est GFR (MDRD) Non-Af 57 L, BUN/Creatinine Ratio 20.6 H, Glucose 162 H, Calcium 8.4 04/05/25 06:12: POC Glucose 146 H Micro: Microbiology 03/30/25 11:20 Blood Culture (Wb) - Left Wrist Blood Culture - Final No growth in 5 days. 03/30/25 11:00 Blood Culture (Wb) - Chest Blood Culture - Final No growth in 5 days. Rhythm Strip Rhythm Strip: Sinus Rhythm Rate: 80 Ectopy: None Cardiology Labs/Tests 04/05/25 04:09: WBC 10.6, RBC 3.33 L, Hgb 8.9 L, Hct 27.6 L, MCV 82.9, MCH 26.7 L, MCHC 32.2, Plt Count 201, MPV 9.7, Immature Gran % (Auto) 0.600, Neut % (Auto) 75.4 H, Lymph % (Auto) 13.0 L, Morrison % (Auto) 9.2, Eos % (Auto) 1.5, Baso % (Auto) 0.3, Absolute Neuts (auto) 8.0 H, Nucleated RBC % 0, Sodium 137, P otassium 2.8 L, Chloride 103, Carbon Dioxide 23.1, Anion Gap 10, BUN 24 H, Creatinine 1.15, Est GFR (MDRD) Non-Af 57 L, BUN/Creatinine Ratio 20.6 H, G lucose 162 H, Calcium 8.4 Rhythm: EKG: ECHO: y Moderately dilated left ventricular cavity. Severe generalized hypokinesis with apical akinesis. Estimated LVEF 20%. At least stage I diastolic dysfunction. The left atrium is moderately enlarged. Moderate (2+) mitral valve insufficiency. Trivial pericardial effusion. The study was technically difficult. Stress Test: Cardiac Cath: PCI: CT Surgery: Holter monitor: EPS: PPM: CXR: Chest CT Scan: There is an enlarged precarinal lymph node measuring 2.3 x 1.4 cm, image 179/265. There is partly occlusive thrombus visible in the proximal right lower lobe pulmonary arteries, image 129-149/265. There is partly occlusive clot visible to the right upper lobe pulmonary vessels, image 143/265. There is nonocclusive clot visible in the left upper lobe proximal branch vessels, image 161/265. There is diffuse patchy interstitial and alveolar infiltrate with peripheral wedge-shaped consolidation, most severe at the bases. There is a 2.3 cm right pleural effusion. There is a 3.4 cm left pleural effusion. There is a 2 cm right adrenal nodule, Hounsfield units = 43. There is a 1.9 cm left adrenal nodule, Hounsfield units = 28. There is a 2.1 cm cyst at the upper pole of the left kidney. Physical Exam Const alert and oriented x3 HEENT normocephalic and head/scalp atraumatic Eyes PERRL and EOMs intact bilaterally Neck full ROM and no lymphadenopathy Chest inspection of chest normal Resp normal respiratory effort Cardio regular rate and regular rhythm GI normal to inspection, nondistended, normoactive bowel sounds no CVA tenderness Extremity normal to inspection Psych mental status grossly normal Assessment & Plan Assessment/Plan (1) Cardiac LV ejection fraction 10-20%: PLAN: Nonischemic, will continue to optimize GDMT including carvedilol, Entresto, furosemide, spironolactone, and SGLT2 receptor antagonist. Will need repeat echocardiographic study as an outpatient in the next 1 to 2 months to ensure reversal back to her baseline LVEF 30% following the above insult with a current admission and acute hypoxic respiratory failure. On today's exam she appears euvolemic for which continue the current medical regimen (2) Acute on chronic HFrEF (heart failure with reduced ejection fraction): PLAN: Likely secondary to the PE and hypoxic respiratory failure for which we will continue GDMT and reassess LVEF in the next 4 to 6 weeks as an outpatient (3) Bilateral pulmonary embolism: PLAN: Continue long-term anticoagulation with Eliquis at the PE dose recommended and recheck right sided pressures in the future by repeat echocardiographic study (4) Acute hypoxemic respiratory failure: PLAN: Improving currently on 1 L nasal cannula (5) Peripheral vascular disease, unspecified: PLAN: Stable continue statins and antiplatelet therapy in the future (6) Essential hypertension: PLAN: Stable
[2025-04-05 09:31] VITALS: BP 112/52; PULSE 82; RESP 16; TEMP 36.7; O2SAT 99
[2025-04-05] MEDS: SACUBITRIL/VALSARTAN 24/26 MG TABLET 1 EACH PO ×2 (09:36→21:10)
[2025-04-05] MEDS: APIXABAN 5 MG TABLET 10 MG PO ×2 (09:36→21:10)
[2025-04-05] MEDS: Insulin Glargine-YFGN 100 UNIT/ML Pen 10 UNIT SC (09:37)
[2025-04-05] MEDS: Ketorolac 30 MG/ML Syringe IV (10:38)
[2025-04-05] MEDS: Pantoprazole Sodium 40 MG in 0.9% Normal Saline (100mL MB+) 100 ML 330 MG IV (10:46)
[2025-04-05] MEDS: Vancomycin HCl 1,000 MG in 0.9% Normal Saline (250mL Bag) 250 ML 250 MG IV (11:25)
[2025-04-05 15:00] VITALS: BP 117/56; PULSE 83; RESP 16; TEMP 36.9; O2SAT 97
--- NOTE | 2025-04-05 15:11 | PN.HOSP_ITS ---
Reason for Visit Chief Complaint: Shortness of breath Objective Data Objective Data Vital Signs: Vital Signs Temp Pulse Resp BP Pulse Ox O2 Del Method O2 Flow Rate 98.1 F 82 16 112/52 L 99 Room Air 1 04/05/25 09:31 04/05/25 09:31 04/05/25 09:31 04/05/25 09:31 04/05/25 09:31 04/05/25 14:38 04/04/25 03:00 FiO2 30 04/02/25 08:00 Oxygen Flow Rate (L/min) 1 Oxygen Delivery Method Room Air Weight: 189 lb 9.561 oz Body Mass Index (BMI) 30.4 Intake & Output: Intake and Output for Last 24 Hours 04/03/25 04/04/25 04/05/25 23:59 23:59 22:59 Intake Total 1390.00 / 1390.00 1867.0 / 1867.0 1330 / 1330 Output Total 1000 / 1000 500 / 500 Balance 390 / 390.00 1367.0 / 1367.0 1330 / 1330 Lab / Micro Data 04/05/25 04:09 04/05/25 04:09 Labs: Laboratory Results - last 24 hr 04/04/25 17:12: POC Glucose 146 H 04/04/25 21:09: POC Glucose 249 H 04/05/25 04:09: WBC 10.6, RBC 3.33 L, Hgb 8.9 L, Hct 27.6 L, MCV 82.9, MCH 26.7 L, MCHC 32.2, RDW Std Deviation 40.5, RDW Coeff of Spencer 13.3, Plt Count 201, MPV 9.7, Immature Gran % (Auto) 0.600, Neut % (Auto) 75.4 H, Lymph % (Auto) 13.0 L, Hand % (Auto) 9.2, Eos % (Auto) 1.5, Baso % (Auto) 0.3, Absolute Neuts (auto) 8.0 H, Absolute Lymphs (auto) 1.38, Nucleated RBC % 0, Sodium 137, Potassium 2.8 L, Chloride 103, Carbon Dioxide 23.1, Anion Gap 10, BUN 24 H, Creatinine 1.15, Estim Creat Clear Calc 62.89, Est GFR (MDRD) Non-Af 57 L, BUN/Creatinine Ratio 20.6 H, Glucose 162 H, Calcium 8.4 04/05/25 06:12: POC Glucose 146 H 04/05/25 11:27: POC Glucose 155 H Micro: Microbiology 03/30/25 11:20 Blood Culture (Wb) - Left Wrist Blood Culture - Final No growth in 5 days. 03/30/25 11:00 Blood Culture (Wb) - Chest Blood Culture - Final No growth in 5 days. 03/30/25 16:00 Sputum, Induced/Lukens Gram Stain - Final 03/30/25 16:00 Sputum, Induced/Lukens Respiratory Culture - Final Staphylococcus aureus 03/30/25 11:46 Urine, Catheterized Urine Culture - Final Culture exhibits no growth. 03/31/25 08:30 Nasal Secretion MRSA (PCR) - Final 03/30/25 11:46 Urine Catheter - Hathaway Legionella Antigen - Final 03/30/25 11:46 Urine Catheter - Hathaway Streptococcus pneumoniae Antigen (M - Final 03/30/25 10:41 Mucosa - Nose SARS-CoV-2, Influenza & RSV (PCR) - Final Rhythm Strip Rhythm Strip: Sinus Rhythm Rate: 80 Ectopy: None Physical Exam Narrative Seen and examined. No acute issues overnight. Patient not on oxygen. She can swallow minced and moist foods. Physical exam Seen and examined General: Alert, Oriented x3, Cooperative. BMI 30.9 kg/m? HEENT: Atraumatic, PERRLA, EOMI, Normocephalic. Oral: No Gingival or Mucosal Lesions/ Ulcerations Neck: Supple, No JVD, Negative Carotid Bruits Chest wall/Lungs: Air entry diminished in bilateral lung bases. No crepitation/rhonchi Cardiovascular: Regular rate and rhythm, Normal S1,S2, systolic murmur Abdomen: Bowel Sounds Present, Soft, Non Tender, Non-Distended : No dysuria. No renal angle tenderness. No suprapubic tenderness. Extremities: Left foot transmetatarsal amputation. Mild edema, Capillary Refill Less than 3 Seconds Skin: No rashes, No breakdown Musculoskeletal: ROM limited with pain in the joints. No Tenderness to Palpation of Joints or Extremities Neurological: Cranial nerves II-XII grossly intact, DTR 2+/4. No acute focal neurological deficit. Psych/Mental Status: Flat affect Assessment & Plan Assessment/Plan (1) Acute hypoxemic respiratory failure: (2) Acute on chronic HFrEF (heart failure with reduced ejection fraction): (3) Bilateral pulmonary embolism: PLAN: Plan Patient is a 54-year-old lady who presented to the emergency department with progressive shortness of breath studies demonstrated bilateral PE with diffuse patchy interstitial alveolar infiltrates with peripheral wedge-shaped consolidation most severe at the lung bases. Patient was initially placed on noninvasive ventilation BiPAP however respiratory status deteriorated resulting in patient being intubated and admitted to the intensive care unit 1. Acute hypoxic respiratory failure ? Due to combination of bilateral pulmonary embolism, acute congestive heart failure with reduced ejection fraction, suspected pneumonia. Patient was initially manage on BiPAP however respiratory status continued to deteriorate resulting in patient being intubated and subsequently admitted to the intensive care unit. Consult was placed to training engineer/pulmonary medicine. Management of patient events deferred ? 04/01/2025; attempt at weaning this morning was unsuccessful after patient had a bout of emesis. ? 04/02/2025; patient awake on the vent currently undergoing weaning trial 04/03: Patient extubated yesterday.. She is nauseated and vomiting. Throat irritation. Speech therapy ordered 04/04: Vomiting has subsided. Transferred to PCU. Currently 97% on room air. Acute hypoxic respiratory failure resolved. 04/05: Patient oxygenation is better, 98% on room. Acute hypoxic respiratory failure resolved. 2. Acute bilateral pulmonary embolism ? With suspected pulmonary infarction. CT of the chest obtained did show partly occlusive thrombus visible in the proximal right lower lobe pulmonary arteries, partly occlusive clot visible to the right upper lobe pulmonary vessels, nonocclusive clot visible in the left upper lobe proximal branch vessels, diffuse patchy interstitial and alveolar infiltrate with peripheral wedge-shaped consolidation, most severe at the bases.Patient started on heparin ? 04/01/2025; patient remains on heparin ? 04/02/2025; patient remains on heparin with plans to transition to DOAC once patient is extubated 04/03: H&H 8.28//27.9%. Transition IV heparin drip to enoxaparin 1 mg Q12 hourly subcu. 04/04: H&H 9.3/28.9%. Enoxaparin replaced with Eliquis therapeutic dose of PE dose; 10 mg twice daily for 1 week and then 5 mg twice daily to continue 04/05 H&H holding up. 8.9/27.6% Persistent nausea and vomiting/dysphagia: Mild nausea but vomiting has subsided. BMS was done and found suspicion of soft tissue excrescence was visualized at pharyngoesophageal level to impact its motility She is able to swallow pills. Plan for EGD tomorrow. 3. Acute on chronic congestive heart failure with reduced ejection fraction ?2D echo demonstrated estimated LVEF of 20% with moderately enlarged left atrium, moderate mitral valve insufficiency and trivial pericardial effusion. Patient previous EF was 30%. Patient is on Aldactone as well as furosemide. Consult placed to cardiology ? 04/01/2025; patient was seen in consultation by Dr. Fajardo with cardiology case discussed with him plan is to resume patient Entresto when hemodynamically stable 04/03: Heart rate and blood pressure control 04/04: Discussed with extension edger. Started on carvedilol 6.25 mg twice daily. Continue above medications including low-dose Lasix, Entresto, SGLT2 inhibitor and statin 04/05: Heart failure symptoms have resolved. Hypokalemia, potassium replacement ordered. Patient on Entresto and spironolactone. Serum magnesium and phosphorus also ordered 4. Sepsis secondary to pneumonia ? Patient was found to have elevated lactic acid level with evidence of endorgan dysfunction?respiratory failure. Patient did receive IV antibiotics cultures sent continued with antibiotics pending receipt of culture results ? 04/01/2025 patient sputum cultures positive for MRSA added vancomycin to treatment 04/03: Sputum culture growing rare Staph aureus, 1+ GPC, 1+ GPR and yeastlike organism. 04/04: Patient was seen by ID. Sputum culture with rare MRSA. Continue IV vancomycin. Plan on short course of p.o. doxycycline at discharge to complete total of 7 days of antibiotics. 5. Diabetes mellitus type 2 with complications including diabetic neuropathy as well as gastroparesis ? Patient recent hemoglobin A1c was 13.2 on 01/29/2025. Glucose levels were markedly elevated on admission. Patient was started on long-acting insulin in addition to Accu-Cheks every 6 hours with sliding scale coverage. Subsequent adjustment made to patient long-acting insulin ? 04/01/2025; patient did develop hypoglycemia following adjustments of her insulin regimen made further adjustment by decreasing her dose. Plan is to continue to monitor and adjust dose as needed 04/03: Accu-Cheks, glucose profile is low. Lantus dose decreased. Humalog scheduled dose discontinued. Accu-Chek before meals and at bedtime with Humalog sliding scale coverage and hypoglycemia protocol. 6. Peripheral arterial disease ? Previous stent about 1 year ago Patient is on recommended medications including dual antiplatelet therapy as well as statin therapy. Plan is for patient to follow-up as outpatient 7. GERD/possible esophagitis ? Patient is on PPI 8. Chronic hypotension ? Patient is on midodrine. Held on admission 9. Dyslipidemia ?Patient is on statin therapy, continued at home dose 10. Tobacco dependence Plan is to mortgage loan counselor patient on cessation once of the event 11. Chronic back pain ? Secondary to chronic compression fractures plan is to continue with PT OT as tolerated 12. Anemia ? Secondary to chronic disorder monitoring H&H and transfuse if patient becomes symptomatic or hemoglobin falls below 7 ? 04/02/2025; patient hemoglobin remains low at 8.3 13. History of depression with anxiety ? Patient is on escitalopram plan is to resume following extubation 14. Vitamin D deficiency ? Patient is on vitamin D supplementation 15. Hypokalemia ? Corrected per protocol repeat potassium levels ordered for a.m. ? 04/02/2025; potassium remains low additional potassium given Microbiology Past 72 Hours 03/30/25 16:00 Sputum, Induced/Lukens Gram Stain - Final 03/30/25 16:00 Sputum, Induced/Lukens Respiratory Culture - Final Staphylococcus aureus 03/30/25 11:20 Blood Culture (Wb) - Left Wrist Blood Culture - Preliminary No growth in 48 hours. 03/30/25 11:00 Blood Culture (Wb) - Chest Blood Culture - Preliminary No growth in 48 hours. 03/30/25 11:46 Urine, Catheterized Urine Culture - Final Culture exhibits no growth. Laboratory Results 04/03/25 08:45: APTT 58.2 H 04/03/25 11:06: POC Glucose 141 H 04/03/25 14:30: WBC 11.8 H, RBC 3.59 L, Hgb 9.7 L, Hct 30.0 L, MCV 83.6, MCH 27.0, MCHC 32.3, RDW Std Deviation 41.7, RDW Coeff of Spencer 13.8, Plt Count 195, MPV 9.4, Immature Gran % (Auto) 0.400, Neut % (Auto) 86.1 H, Lymph % (Auto) 7.8 L, Hand % (Auto) 4.8, Eos % (Auto) 0.6, Baso % (Auto) 0.3, Absolute Neuts (auto) 10.2 H, Absolute Lymphs (auto) 0.92, Nucleated RBC % 0, Sodium 137, Potassium 3.2 L, Chloride 103, Carbon Dioxide 23.3, Anion Gap 11, BUN 21 H, Creatinine 0.66 L, Estim Creat Clear Calc 110.46, Est GFR (MDRD) Non-Af 105, BUN/Creatinine Ratio 31.6 H, Glucose 155 H, Calcium 9.1 04/03/25 16:35: POC Glucose 126 H 04/03/25 21:30: Vancomycin Trough 17.4 H 04/03/25 23:52: POC Glucose 108 H 04/04/25 05:55: WBC 11.6 H, RBC 3.46 L, Hgb 9.3 L, Hct 28.9 L, MCV 83.5, MCH 26.9 L, MCHC 32.2, RDW Std Deviation 40.6, RDW Coeff of Spencer 13.5, Plt Count 196, MPV 9.5, Immature Gran % (Auto) 0.600, Neut % (Auto) 81.2 H, Lymph % (Auto) 9.4 L, Hand % (Auto) 7.4, Eos % (Auto) 1.0, Baso % (Auto) 0.4, Absolute Neuts (auto) 9.4 H, Absolute Lymphs (auto) 1.09, Nucleated RBC % 0, Sodium 137, Potassium 3.2 L, Chloride 104, Carbon Dioxide 22.3, Anion Gap 11, BUN 21 H, Creatinine 0.79, Estim Creat Clear Calc 91.55, Est GFR (MDRD) Non-Af 90, BUN/Creatinine Ratio 27.2 H, Glucose 101 H, Calcium 9.0 04/04/25 06:00: POC Glucose 83 Clinical Impression(s) from Imaging Studies Chest X-Ray 03/30/25 10:26 IMPRESSION: Prominent bilateral airspace disease is seen, predominantly in the mid to lower lung zones. Findings are most concerning for Pulmonary Edema; cannot exclude superimposed pneumonitis. No definite pleural effusion is seen. No pneumothorax is noted. The cardiomediastinal silhouette is stable, without evidence of cardiomegaly. Generalized osteopenia is seen. No interval osseous change is noted. Reading Location: [facility] Chest CTA 03/30/25 11:55 IMPRESSION: There is an enlarged precarinal lymph node measuring 2.3 x 1.4 cm, image 179/265. There is partly occlusive thrombus visible in the proximal right lower lobe pulmonary arteries, image 129-149/265. There is partly occlusive clot visible to the right upper lobe pulmonary vessels, image 143/265. There is nonocclusive clot visible in the left upper lobe proximal branch vessels, image 161/265. There is diffuse patchy interstitial and alveolar infiltrate with peripheral wedge-shaped consolidation, most severe at the bases. There is a 2.3 cm right pleural effusion. There is a 3.4 cm left pleural effusion. There is a 2 cm right adrenal nodule, Hounsfield units = 43. There is a 1.9 cm left adrenal nodule, Hounsfield units = 28. There is a 2.1 cm cyst at the upper pole of the left kidney. Critical results were discussed with Dr. Thomas by Dr. Gaytan at the time of dictation. Reading Location: [facility] Echocardiogram 03/30/25 14:01 Interpretation Summary Moderately dilated left ventricular cavity. Severe generalized hypokinesis with apical akinesis. Estimated LVEF 20%. At least stage I diastolic dysfunction. The left atrium is moderately enlarged. Moderate (2+) mitral valve insufficiency. Trivial pericardial effusion. The study was technically difficult. Ordering Physician: Jonas Justin Performed By: Vaughn Waters RCS Venous Doppler Study 03/30/25 14:04 Interpretation Summary Deep veins of the bilateral lower extremities are patent and compressible segmentally. There is no evidence of bilateral lower extremity deep vein thrombosis. The bilateral great saphenous veins appear patent and compressible segmentally. Ordering Physician: Jonas Justin Referring Physician: Zohreh Pratt Performed By: Tiffany Rosado, RDCS, RVT Chest X-Ray 03/30/25 16:05 IMPRESSION: 1. Endotracheal tube tip 5.1 cm above the keanu. 2. Enteric tube appears appropriately positioned, but distal tip not well- visualized. 3. Unchanged small bilateral pleural effusions and perihilar edema/consolidation. Reading Location: [facility] Chest X-Ray 03/30/25 23:30 IMPRESSION: Support lines/tubes in appropriate positioning, as above. Unchanged small pleural effusions and bilateral patchy airspace opacities. Reading Location: [facility] Chest X-Ray 03/31/25 08:25 IMPRESSION: As above. Reading Location: [facility] Abdomen/Pelvis CT 04/03/25 10:02 IMPRESSION: 1. Cholecystectomy 2. Bilateral adrenal adenomas are benign. 3. Fluid contents of the colon suggesting a diarrheal state. No wall thickening or pericholecystic fluid. Diverticulosis without diverticulitis. Appendectomy. 4. Decreased bone mineralization. Compression fracture L3, L4 and L5. Severe compression fracture of L3. 5. Slight increased density of the renal nephrogram suggesting some retained contrast material. Correlate with renal function to ensure no evidence of contrast induced nephropathy. No collecting system dilation is present. Incidental simple cyst left upper pole, Bosniak 1. No follow-up required. Reading Location: [facility] Charges/Coding Visit Charges Inpatient E&M: 18012 Subs Hosp L2
[2025-04-05] MEDS: Potassium Chloride Oral Tablet 20 MEQ 40 MEQ PO ×2 (16:34→19:07)
[2025-04-05 20:00] VITALS: PULSE 86
[2025-04-05 21:00] VITALS: BP 126/68; PULSE 86; RESP 15; TEMP 36.6; O2SAT 96
[2025-04-05] MEDS: MELATONIN 3 MG TABLET PO (21:16)
[2025-04-05 21:56] LABS: Vancomycin, Trough Level 31.0 ug/mL (5.0-15.0)
--- NOTE | 2025-04-05 22:03 | PCM.RX.CS ---
Consult Antibiotic Management Pharmacy has been consulted to manage selected antibiotic: Vancomycin Type of Intervention Type of Consult: Follow-up Labs Labs: Sodium 137 mmol/L (133-145) 04/05/25 04:09 Potassium 2.8 mmol/L (3.3-5.1) L 04/05/25 04:09 Chloride 103 mmol/L (98-108) 04/05/25 04:09 Carbon Dioxide 23.1 mmol/L (21.0-32.0) 04/05/25 04:09 Anion Gap 10 (5-15) 04/05/25 04:09 BUN 24 mg/dL (4-19) H 04/05/25 04:09 Creatinine 1.15 mg/dL (0.70-1.20) 04/05/25 04:09 Est GFR (MDRD) Non-Af 57 (>60) L 04/05/25 04:09 BUN/Creatinine Ratio 20.6 RATIO (10-20) H 04/05/25 04:09 Glucose 162 mg/dL (70-99) H 04/05/25 04:09 Vancomycin Trough 31.0 ug/mL (5.0-15.0) H 04/05/25 21:27 Microbiology Microbiology: Microbiology 03/30/25 11:20 Blood Culture (Wb) - Left Wrist Blood Culture - Final No growth in 5 days. 03/30/25 11:00 Blood Culture (Wb) - Chest Blood Culture - Final No growth in 5 days. 03/30/25 16:00 Sputum, Induced/Lukens Gram Stain - Final 03/30/25 16:00 Sputum, Induced/Lukens Respiratory Culture - Final Staphylococcus aureus 03/30/25 11:46 Urine, Catheterized Urine Culture - Final Culture exhibits no growth. 03/31/25 08:30 Nasal Secretion MRSA (PCR) - Final 03/30/25 11:46 Urine Catheter - Hathaway Legionella Antigen - Final 03/30/25 11:46 Urine Catheter - Hathaway Streptococcus pneumoniae Antigen (M - Final 03/30/25 10:41 Mucosa - Nose SARS-CoV-2, Influenza & RSV (PCR) - Final Goal Trough Goal Trough: 15-20 mcg/mL Pharmacy Plan for Drug Dosing Pharmacy Plan for Drug Dosing: Pharmacy Service will continue to monitor and adjust dosing as required. TROUGH 31 @ 10 HOURS. HOLD DOSE AND DRAW RANDOM LEVEL IN 12 HOURS Follow-Up Labs Follow-Up Labs: Trough: Vancomycin Date/Time Labs Ordered Labs to be done on [date and time ordered]: 04/06 @ 4603
[2025-04-06] VITALS (14 sets, daily range): BP systolic 114–146; BP diastolic 60–77; PULSE 79–85; RESP 15–18; TEMP 36.3–36.8; O2SAT 95–100; BMI 31.4
[2025-04-06] MEDS: 0.9% Saline Lock 10 ML Syringe IV ×2 (02:39→21:38)
[2025-04-06 04:54] LABS: Hematocrit 27.8 % (37-47); Hemoglobin 9.2 g/dL (12.0-15.0); Immature Granulocytes Count 0.020 X10^3/uL (0.0-0.0); Mean Corp Hgb Conc 33.1 g/dL (32-36); Mean Corpuscular Volume 82.0 fL (81-99); Mean Platelet Vol. 9.6 fl (6.2-12.0); NRBC Flagged by Analyzer 0 % (0-5); Platelet Count 197 K/mm3 (150-450); RBC Distribution Width CV 13.5 % (11.6-14.6); RBC Distribution Width SD 40.5 fl (35.1-43.9); Red Blood Count 3.39 M/mm3 (4.2-5.4); White Blood Count 9.4 K/mm3 (4.4-11.0)
[2025-04-06 05:16] LABS: Anion Gap 10 (5-15); BUN 23 mg/dL (4-19); BUN/Creat Ratio 20.9 RATIO (10-20); Calcium,Total 8.4 mg/dL (7.6-11.0); Carbon Dioxide 21.9 mmol/L (21.0-32.0); Chloride 106 mmol/L (98-108); Estimated Creatinine Clearance 64.75 ml/min (50-250); Glucose 136 mg/dL (70-99); Magnesium 1.8 mg/dL (1.5-2.2); Potassium 3.7 mmol/L (3.3-5.1)
--- NOTE | 2025-04-06 07:38 | PCM.PN.HOSP ---
Reason for Visit Chief Complaint: Shortness of breath Subjective Subjective Patient scheduled to undergo EGD this a.m. Objective Data Objective Data Vital Signs: Vital Signs Temp Pulse Resp BP Pulse Ox O2 Del Method O2 Flow Rate 97.9 F 85 15 136/71 H 98 Room Air 1 04/06/25 02:45 04/06/25 04:00 04/06/25 02:45 04/06/25 02:45 04/06/25 02:45 04/06/25 02:45 04/04/25 03:00 FiO2 30 04/02/25 08:00 Oxygen Flow Rate (L/min) 1 Oxygen Delivery Method Room Air Weight: 88.6 kg Body Mass Index (BMI) 31.4 Intake & Output: Intake and Output for Last 24 Hours 04/04/25 04/05/25 04/06/25 23:59 22:59 23:59 Intake Total 1867.0 / 1867.0 1690 / 1990 300 / 300 Output Total 500 / 500 350 / 350 100 / 100 Balance 1367.0 / 1367.0 1340 / 1640 200 / 200 Lab / Micro Data 04/06/25 04:19 04/06/25 04:19 Labs: Laboratory Results - last 24 hr 04/05/25 11:27: POC Glucose 155 H 04/05/25 16:38: POC Glucose 189 H 04/05/25 21:27: Vancomycin Trough 31.0 H 04/05/25 22:58: POC Glucose 194 H 04/06/25 04:19: WBC 9.4, RBC 3.39 L, Hgb 9.2 L, Hct 27.8 L, MCV 82.0, MCH 27.1, MCHC 33.1, RDW Std Deviation 40.5, RDW Coeff of Spencer 13.5, Plt Count 197, MPV 9.6, Immature Gran % (Auto) 0.200, Neut % (Auto) 70.6 H, Lymph % (Auto) 17.2 L, [facility] % (Auto) 10.5 H, Eos % (Auto) 1.2, Baso % (Auto) 0.3, Absolute Neuts (auto) 6.6, Absolute Lymphs (auto) 1.62, Nucleated RBC % 0, Sodium 138, Potassium 3.7, Chloride 106, Carbon Dioxide 21.9, Anion Gap 10, BUN 23 H, Creatinine 1.11, Estim Creat Clear Calc 64.75, Est GFR (MDRD) Non-Af 59 L, BUN/Creatinine Ratio 20.9 H, Glucose 136 H, Calcium 8.4, Phosphorus 3.3, Magnesium 1.8 04/06/25 06:48: POC Glucose 148 H Micro: Microbiology 03/30/25 11:20 Blood Culture (Wb) - Left Wrist Blood Culture - Final No growth in 5 days. 03/30/25 11:00 Blood Culture (Wb) - Chest Blood Culture - Final No growth in 5 days. 03/30/25 16:00 Sputum, Induced/Lukens Gram Stain - Final 03/30/25 16:00 Sputum, Induced/Lukens Respiratory Culture - Final Staphylococcus aureus 03/30/25 11:46 Urine, Catheterized Urine Culture - Final Culture exhibits no growth. 03/31/25 08:30 Nasal Secretion MRSA (PCR) - Final 03/30/25 11:46 Urine Catheter - Hathaway Legionella Antigen - Final 03/30/25 11:46 Urine Catheter - Hathaway Streptococcus pneumoniae Antigen (M - Final 03/30/25 10:41 Mucosa - Nose SARS-CoV-2, Influenza & RSV (PCR) - Final Rhythm Strip Rhythm Strip: Sinus Rhythm Rate: 80 Ectopy: None Physical Exam Narrative GENERAL: Patient is cooperative HEENT: Atraumatic; normocephalic EYES; Anicteric, Normal Conjunctiva NECK; supple, normal thyroid, RESPIRATORY: Diminished to auscultation CARDIOVASCULAR: Regular S1 S2, GI: soft, normoactive bowel sounds, : No Renal angle tenderness; EXTREMITIES: Bipedal edema, no clubbing, MUSCULOSKELETAL: Transmetatarsal amputation of the left foot NEURO: Awake, no lateralizing SKIN: No Rash Const Constitutional Narrative: I Assessment & Plan Assessment/Plan (1) Acute hypoxemic respiratory failure: (2) Acute on chronic HFrEF (heart failure with reduced ejection fraction): (3) Bilateral pulmonary embolism: PLAN: Plan Patient is a 54-year-old lady who presented to the emergency department with progressive shortness of breath studies demonstrated bilateral PE with diffuse patchy interstitial alveolar infiltrates with peripheral wedge-shaped consolidation most severe at the lung bases. Patient was initially placed on noninvasive ventilation BiPAP however respiratory status deteriorated resulting in patient being intubated and admitted to the intensive care unit 1. Acute hypoxic respiratory failure ? Due to combination of bilateral pulmonary embolism, acute congestive heart failure with reduced ejection fraction, suspected pneumonia. Patient was initially manage on BiPAP however respiratory status continued to deteriorate resulting in patient being intubated and subsequently admitted to the intensive care unit. Consult was placed to management coordinator/pulmonary medicine. Management of patient events deferred ? 04/01/2025; attempt at weaning this morning was unsuccessful after patient had a bout of emesis. ? 04/02/2025; patient awake on the vent currently undergoing weaning trial ? 04/06/2025; patient remains on oxygen nasal cannula 2. Acute bilateral pulmonary embolism ? With suspected pulmonary infarction. CT of the chest obtained did show partly occlusive thrombus visible in the proximal right lower lobe pulmonary arteries, partly occlusive clot visible to the right upper lobe pulmonary vessels, nonocclusive clot visible in the left upper lobe proximal branch vessels, diffuse patchy interstitial and alveolar infiltrate with peripheral wedge-shaped consolidation, most severe at the bases.Patient started on heparin ? 04/01/2025; patient remains on heparin ? 04/02/2025; patient remains on heparin with plans to transition to DOAC once patient is extubated ? 04/06/2025; patient is on apixaban 3. Acute on chronic congestive heart failure with reduced ejection fraction ?2D echo demonstrated estimated LVEF of 20% with moderately enlarged left atrium, moderate mitral valve insufficiency and trivial pericardial effusion. Patient previous EF was 30%. Patient is on Aldactone as well as furosemide. Consult placed to cardiology ? 04/01/2025; patient was seen in consultation by Dr. Fajardo with cardiology case discussed with him plan is to resume patient Entresto when hemodynamically stable 4. Sepsis secondary to pneumonia ? Patient was found to have elevated lactic acid level with evidence of endorgan dysfunction?respiratory failure. Patient did receive IV antibiotics cultures sent continued with antibiotics pending receipt of culture results ? 04/01/2025 patient sputum cultures positive for MRSA added vancomycin to treatment 5. Diabetes mellitus type 2 with complications including diabetic neuropathy as well as gastroparesis ? Patient recent hemoglobin A1c was 13.2 on 01/29/2025. Glucose levels were markedly elevated on admission. Patient was started on long-acting insulin in addition to Accu-Cheks every 6 hours with sliding scale coverage. Subsequent adjustment made to patient long-acting insulin ? 04/01/2025; patient did develop hypoglycemia following adjustments of her insulin regimen made further adjustment by decreasing her dose. Plan is to continue to monitor and adjust dose as needed 6. Peripheral arterial disease ? Previous stent about 1 year ago Patient is on recommended medications including dual antiplatelet therapy as well as statin therapy. Plan is for patient to follow-up as outpatient 7. GERD/possible esophagitis ? Patient is on PPI 8. Chronic hypotension ? Patient is on midodrine. Held on admission 9. Dyslipidemia ?Patient is on statin therapy, continued at home dose 10. Tobacco dependence Plan is to mental health counselor patient on cessation once of the event 11. Chronic back pain ? Secondary to chronic compression fractures plan is to continue with PT OT as tolerated 12. Anemia ? Secondary to chronic disorder monitoring H&H and transfuse if patient becomes symptomatic or hemoglobin falls below 7 ? 04/02/2025; patient hemoglobin remains low at 8.3 13. History of depression with anxiety ? Patient is on escitalopram plan is to resume following extubation 14. Vitamin D deficiency ? Patient is on vitamin D supplementation 15. Hypokalemia ? Corrected per protocol repeat potassium levels ordered for a.m. ? 04/02/2025; potassium remains low additional potassium given 16. Suspected aspiration ? Modified barium swallow found soft tissue excrescence on pharyngoesophageal region. Consult subsequently placed to GI. Plans for patient to undergo EGD 17. Physical deconditioning ? Requested for PT OT eval and social sciences lecturer to assist with discharge planning Time spent in the patient's overall evaluation,decision-making process, review of diagnostic data, adjustment of management, discussion with other providers, nursing nursing and ancillary staff involved in patient's care documentation, 38 Minutes Charges/Coding Visit Charges Inpatient E&M: 38488 Subs Hosp L2
--- NOTE | 2025-04-06 08:55 | CASEMGMT ---
Discharge Planning Updates sent via [facility] to [facility]. Precert remains pending. Arelis Ngo DC Planning Asst.
[2025-04-06] MEDS: Pantoprazole Sodium 40 MG in 0.9% Normal Saline (100mL MB+) 100 ML 330 MG IV (10:24)
[2025-04-06 10:27] LABS: Vancomycin, Random Level 22.7 ug/mL (0.0-15.0)
--- NOTE | 2025-04-06 10:52 | PCM.RX.CS ---
Consult Antibiotic Management Pharmacy has been consulted to manage selected antibiotic: Vancomycin Type of Intervention Type of Consult: Follow-up Suspected Infection Suspected Infection: Pneumonia Prior Doses of Antibiotics Prior Doses of Antibiotics Received/Current Regimen: Vancomycin 1000 mg IV given 04/05 @ 1125 Labs Labs: Sodium 138 mmol/L (133-145) 04/06/25 04:19 Potassium 3.7 mmol/L (3.3-5.1) 04/06/25 04:19 Chloride 106 mmol/L (98-108) 04/06/25 04:19 Carbon Dioxide 21.9 mmol/L (21.0-32.0) 04/06/25 04:19 Anion Gap 10 (5-15) 04/06/25 04:19 BUN 23 mg/dL (4-19) H 04/06/25 04:19 Creatinine 1.11 mg/dL (0.70-1.20) 04/06/25 04:19 Est GFR (MDRD) Non-Af 59 (>60) L 04/06/25 04:19 BUN/Creatinine Ratio 20.9 RATIO (10-20) H 04/06/25 04:19 Glucose 136 mg/dL (70-99) H 04/06/25 04:19 Vancomycin Trough 31.0 ug/mL (5.0-15.0) H 04/05/25 21:27 Random Vancomycin 22.7 ug/mL (0.0-15.0) H 04/06/25 09:24 Microbiology Microbiology: Microbiology 03/30/25 11:20 Blood Culture (Wb) - Left Wrist Blood Culture - Final No growth in 5 days. 03/30/25 11:00 Blood Culture (Wb) - Chest Blood Culture - Final No growth in 5 days. 03/30/25 16:00 Sputum, Induced/Lukens Gram Stain - Final 03/30/25 16:00 Sputum, Induced/Lukens Respiratory Culture - Final Staphylococcus aureus 03/30/25 11:46 Urine, Catheterized Urine Culture - Final Culture exhibits no growth. 03/31/25 08:30 Nasal Secretion MRSA (PCR) - Final 03/30/25 11:46 Urine Catheter - Hathaway Legionella Antigen - Final 03/30/25 11:46 Urine Catheter - Hathaway Streptococcus pneumoniae Antigen (M - Final 03/30/25 10:41 Mucosa - Nose SARS-CoV-2, Influenza & RSV (PCR) - Final Dosing Weight Weight used for dosin.6 kg Estimated Creatinine Clearance Estimated Creatinine Clearance: ~65 Goal Trough Goal Trough: 15-20 mcg/mL Pharmacy Plan for Drug Dosing Pharmacy Plan for Drug Dosing: Vancomycin random level = 22.7, continue to hold, random in 10 hours Pharmacy Service will continue to monitor and adjust dosing as required. Follow-Up Labs Follow-Up Labs: Trough: Vancomycin Date/Time Labs Ordered Labs to be done on [date and time ordered]: 04/06/25 @ 5698
--- NOTE | 2025-04-06 11:27 | WOUNDNOTE ---
wound photo: bobby
[2025-04-06] MEDS: SACUBITRIL/VALSARTAN 24/26 MG TABLET 1 EACH PO ×2 (11:31→21:38)
--- NOTE | 2025-04-06 14:00 | EGD_PTH ---
PATIENT: TRENTON DENTON LOC: [facility] U#:[id number] AGE/SX: 54/F ROOM: [facility] RE03/30/[address]: Dr. Riccardo Shaikh DO : 1970 BED: 1 DIS: 04/20/2025 SPEC #: [id number] RECD: 04/07/25 07:16 STATUS: JEFFREY LENI #: [id number] ZINA: 04/06/25 14:[address]: Jeevan De Jesus DEPT: SURGICAL PATHOLOGY RECD BY: Hai Dempsey ENTERED: 04/07/25 11:06 SP TYPE: EGD BIOPSY OT DR: DO Dr. Abdirizak Kuhn MD Dr. David Kittoe, MD Dr. Prakash Chand, MD Dr. Robert Leininger, MD Heather Evans, LITIGATION ATTORNEY-C Griselda Huynh, LITIGATION ATTORNEY-C MARTIN Tillman, [facility], LITIGATION ATTORNEY-C Tissues: A - Esophagus, NOS B - Gastric mucous membrane Procedures: Surgery Specimen Level IV HEADER OPERATION: EGD with dilation, biopsy PRE-OP DIAGNOSIS: Dysphagia TISSUE SUBMITTED: A- Distal esophagus biopsy, B- Gastric body biopsy MICROSCOPIC DIAGNOSIS A. Distal esophagus, biopsy: - No specific pathologic change. B. Gastric body, biopsy: - No specific pathologic change. - Negative for Helicobacter-like organisms (H&E). MICROSCOPIC DESCRIPTION Slides are reviewed. GROSS DESCRIPTION A. Received in fixative is one container labeled with the patient's name and designated Distal esophagus biopsy. The specimen consists of two irregular fragments of owens tissue, each measuring 0.3 cm. The specimen is totally submitted in one cassette. B. Received in fixative is one container labeled with the patient's name and designated Gastric body biopsy. The specimen consists of two irregular fragments of owens tissue, each measuring 0.5 cm. The specimen is totally submitted in one cassette. ME 04/07/2025 CPT:04140e5
--- NOTE | 2025-04-06 14:21 | PCM.PRE.AN2 ---
ASA Classification* ASA Classification ASA Classification: 4 Assessment & Plan Anesthesia* Anesthesia Assessment Anesthesia Assessment: Discussed sedation and/or anesthesia options, risks, benefits, and alternatives with patient/parents/legal guardian/POA. Questions invited. The patient/parents/legal guardian/POA seems to understand and agrees to proceed with anesthesia plan. Reviewed the physical assessment, medical history, allergy history and patient home medications list prior to surgery/procedure/anesthetic and documented any changes. Performed airway and anesthesia risk assessments. Anesthesia Type Anesthesia Type: MAC Anesthesia Focused Assessment* Temperature: 97.4 F Pulse Rate: 85 Blood Pressure: 146/72 Respiratory Rate: 16 Pulse Ox: 97 Oxygen Flow Rate (L/min): 1 Fraction of Inspired Oxygen (FIO2): 30 Airway Assessment Mouth opens: >3 cm Mallampati Score: II Labs Anesthesia Preop lab: CBC WBC, (4.4-11.0) 9.4 K/mm3 Today, 04:19 RBC, (4.2-5.4) 3.39 M/mm3 L Today, 04:19 Hgb, (12.0-15.0) 9.2 g/dL L Today, 04:19 Hct, (37-47) 27.8 % L Today, 04:19 Plt Count, (150-450) 197 K/mm3 Today, 04:19 CHEMISTRY Potassium, (3.3-5.1) 3.7 mmol/L Today, 04:19 Sodium, (133-145) 138 mmol/L Today, 04:19 Magnesium, (1.5-2.2) 1.8 mg/dL Today, 04:19 Phosphorus, (2.7-4.5) 3.3 mg/dL Today, 04:19 BUN, (4-19) 23 mg/dL H Today, 04:19 Creatinine, (0.70-1.20) 1.11 mg/dL Today, 04:19 Glucose, (70-99) 136 mg/dL H Today, 04:19 POC Glucose, (74-106) 138 mg/dL H Today, 11:13 TSH, (0.300-4.200) 1.870 uIU/mL 01/29/25, 17:00 COAG PT, (11.7-14.9) 13.9 SECONDS 03/30/25, 13:21 HCG, Quant, (1-3) 3 mIU/mL 08/26/21, 17:40 Pre-Assessment Diagnosis/Proposed Procedure Planned Operative Procedure(s): EGD Anesthesia History Anesthesia History - government professor: Anesthesia History - government professor Hx Hospitalization No 08/13/20 07:59 Any Problems With Anesthesia No 08/30/22 22:00 Cholinesterase deficiency No 08/30/22 22:00 You/Your Family Experience No 08/30/22 22:00 fever (hyperthermia) with Relationship Recent Exposure to Contagious No 08/30/22 22:00 Disease Does patient have nerve No 08/30/22 22:00 stimulator Patient instructed to have device shut off --Does patient have Pacemaker or ICD? When Was Last Pacemaker Check QUESTION #4 FULL TEXT: You/Your Family Experience fever (hyperthermia) with Anesthesia Last Oral Intake Last Oral intake: Last Oral Intake NPO since Meds taken in AM with sips of water? Meds patient instructed to take am of surgery PONV PONV - government professor: PONV - government professor Female HX of Motion Sickness HX of N/V After Surgery Non-Smoker Duration of Surgery greater than 60 minutes Number of Risk Factors PONV Score Height & Weight Height & Weight: Anesthesia: Height & Weight Height 5 ft 6.14 in 04/06/25 10:09 Weight: 88.6 kg 04/06/25 10:09 Body Mass Index (BMI) 31.4 04/06/25 05:42 Respiratory Assessment Respiratory Assessment - government professor: Respiratory Tract Infection Hx - government professor Hx Respiratory Tract Infection No 08/30/22 22:00 STOP Sleep Apnea STOP Sleep Apnea - government professor: STOP Sleep Apnea - government professor Hx Hypertension No: unable to obtain 04/01/25 14:30 Hx Sleep Apnea No: unable to obtain 03/30/25 17:09 CPAP No 01/29/25 21:51 BIPAP No 01/29/25 21:51 Do you snore loudly (louder No 03/30/25 17:09 than talking or can be heard Do you often feel tired/ No 03/30/25 17:09 fatigued/ sleepy during daytime? Has anyone observed you stop No 03/30/25 17:09 breathing during sleep? STOP Results Negative 03/30/25 17:09 QUESTION #5 FULL TEXT : Do you snore loudly (louder than talking or can be heard through closed doors)? Tobacco Use History Tobacco Use History - government professor: Tobacco Use History - government professor Tobacco Use Smoking Status Unknown if ever smoked 03/30/25 17:09 Hx Tobacco Use No 03/30/25 17:09 Years Smoking Packs Smoked per Day Smoking Cessation Date was within the last 15 years Hx Smoking Cessation Date Hx Smoking Cessation Counseling Hematologic Medial History Hematologic Hx - government professor: Hematologic Medical Hx - folder machine Hx of Blood Transfusion Hx of Transfusion in last 3 Months Date of Last Transfusion (if within last 3 months) Ever experience any problems with transfusion(s)? Specify any problems Hx of Preganancy in last 3 N/A 03/30/25 17:09 Months Nurse Filling Out Transfusion & Questions: Date: Time: Patient unable to answer at Yes 03/30/25 17:09 this time (ie. confused, unrespo /Reproduction History /Reproductive History - government professor: /Reproductive Hx- government professor Hx Now Gestational Age (in weeks): EDC: Hx Hx Para Hx Section SAB No 08/30/22 22:00 Active Medications Active Medications: Current Medications Generic Name Dose Route Start Last Admin Trade Name Freq PRN Reason Stop Dose Admin Acetaminophen 650 mg 04/02/25 14:55 04/06/25 08:04 Acetaminophen 325 Mg Tablet PO 650 mg Q6H PRN PRN Administration Pain 1-10 Or Fever>100.7 Albuterol/Ipratropium 3 ml 04/03/25 13:12 Ipratropium/Albuterol Sulfate 3 Ml Ampul.Neb INHALATION Q6H PRN PRN SHORTNESS OF BREATH Apixaban 10 mg 04/04/25 10:00 04/05/25 21:10 Apixaban 5 Mg Tablet PO 04/10/25 22:01 10 mg BID KATIE Administration Apixaban 5 mg 04/11/25 10:00 Apixaban 5 Mg Tablet PO BID KATIE Atorvastatin Calcium 80 mg 04/02/25 22:00 04/05/25 21:10 Atorvastatin Calcium 80 Mg Tablet PO 80 mg QHS KATIE Administration Calamine/Phenol 1 applic 04/04/25 22:00 04/06/25 11:32 Menthol/Lanolin/Calamine/Znox 113 Gm Tube TOPICAL 1 applic BID KATIE Administration Protocol Carvedilol 6.25 mg 04/04/25 08:26 04/06/25 11:31 Carvedilol 6.25 Mg Tablet PO 6.25 mg BIDCM KATIE Administration Protocol Empagliflozin 10 mg 04/04/25 10:00 04/05/25 09:37 Empagliflozin 10 Mg Tablet PO 10 mg DAILY KATIE Administration Furosemide 40 mg 04/04/25 10:00 04/06/25 11:31 Furosemide 40 Mg Tablet PO 40 mg DAILY KATIE Administration Protocol Glucagon 1 mg 03/30/25 15:25 Glucagon 1 Mg/Ml Syringe IM X1 PRN Hypoglycemia Protocol Hydralazine HCl 10 mg 04/02/25 13:28 04/03/25 17:12 Hydralazine 20 Mg/Ml Vial IV 10 mg Q4H PRN PRN Administration Hypertensive Emergency/SBP>180 Protocol Dextrose 250 mls @ 0 mls/hr 03/30/25 15:25 04/01/25 05:35 Dextrose 10%-Water IV Infused .Q0M PRN Infusion HYPOGLYCEMIA Protocol As Directed Pantoprazole Sodium 40 mg/ 100 mls @ 330 mls/hr 03/31/25 10:00 04/06/25 10:24 Sodium Chloride IV 330 mls/hr Q24 KATIE Administration Sodium Chloride 250 mls @ 15 mls/hr 03/31/25 08:58 04/04/25 11:20 IV Infused .[id number] PRN Infusion Saline Flush Sodium Chloride 250 mls @ 15 mls/hr 03/31/25 08:58 04/04/25 21:20 IV 0 mls/hr .[id number] PRN Infusion Additional IVPB Infusion Vancomycin IV-PHARMACY TO DOSE 500 mls @ 250 mls/hr 04/02/25 08:17 1 each/ Sodium Chloride IV X1 PRN Rx to Dose Protocol Insulin Glargine 10 unit 04/04/25 10:00 04/06/25 11:26 Insulin Glargine-Yfgn 100 Unit/Ml Pen SC Not Given DAILY KATIE Protocol Insulin Human Lispro 0 unit 04/04/25 22:00 04/06/25 11:28 Insulin Lispro 100 Unit/Ml Insuln.Pen SC Not Given ACHS [facility] Protocol Melatonin 3 mg 04/02/25 14:56 04/05/25 21:16 Melatonin 3 Mg Tablet PO 3 mg QHS PRN PRN Administration INSOMNIA Nystatin 1 applic 03/30/25 22:00 04/06/25 11:32 Nystatin Powder 15gm Bottle TOPICAL 1 applic BID KATIE Administration Protocol Ondansetron HCl 8 mg 04/03/25 09:15 04/06/25 02:39 Ondansetron 4 Mg/2 Ml Vial IV 8 mg Q4H PRN Administration BREAKTHROUGH NAUSEA Polyethylene Glycol 17 gm 04/02/25 14:57 Polyethylene Glycol 3350 17 Gm Packet PO DAILY PRN constipation Promethazine HCl 12.5 mg 04/03/25 11:13 04/04/25 11:53 Promethazine 25 Mg/Ml Syringe IM 12.5 mg Q4H PRN PRN Administration NAUSEA/VOMITING Sacubitril/Valsartan 1 each 04/02/25 22:00 04/06/25 11:31 Sacubitril/Valsartan 24/26 Mg Tablet PO 1 each BID KATIE Administration Senna/Docusate Sodium 2 tablet 04/02/25 22:00 04/06/25 11:28 Senna/Docusate Sodium 1 Tablet PO Not Given BID [facility] Sodium Chloride 10 - 40 ml 03/30/25 18:23 04/06/25 02:39 0.9% Saline Lock 10 Ml Syringe IV 10 ml UD PRN Administration SALINE FLUSH Sodium Chloride 10 - 40 ml 03/31/25 08:58 0.9% Saline Lock 10 Ml Syringe IV UD PRN Closed End PICC Flush Spironolactone 50 mg 04/04/25 10:00 04/06/25 11:30 Spironolactone 50 Mg Tablet PO 50 mg DAILY [facility] Administration Protocol Vancomycin Protocol 1 lab 04/07/25 18:30 Vancomycin Trough/Random Due 04/07/25 20:30 DAILY [facility] PFSH Medical History Cardiac LV ejection fraction 10-20% Tobacco abuse Overweight (BMI 25.0-29.9) L5 vertebral fracture ESBL (extended spectrum beta-lactamase) producing bacteria infection Generalized weakness Candidiasis of breast Colitis Debility PTSD (post-traumatic stress disorder) Closed compression fracture of L3 vertebra Hypokalemia Colitis BiPAP (biphasic positive airway pressure) dependence Coronary artery disease On home oxygen therapy Rheumatoid arthritis Sleep apnea Smoker DVT (deep venous thrombosis) Seizures Amputation toe Psychiatric disorder Ischemic cardiomyopathy Diabetes type 2, uncontrolled Essential hypertension Substance abuse Alcohol abuse Depression Osteoporosis GERD (gastroesophageal reflux disease) Pulmonary embolism Myocardial infarct Pericardial effusion Hypoxemia Acute dyspnea Aftercare following surgery of the circulatory system Hx of fracture of humerus Toe amputee Hyperlipidemia CHF (congestive heart failure) CAD (coronary artery disease), [place] coronary artery Medical History unable to obtain Home Medications ?Medication ?Instructions ?Recorded ?Last Taken ?Type aspirin 81 mg capsule 81 mg PO DAILY heart health 08/10/22 09/06/24 History clopidogrel 75 mg tablet 75 mg PO DAILY anti platelet #30 02/03/23 09/06/24 Rx tabs pantoprazole 40 mg tablet,delayed 40 mg PO DAILY reflux 04/18/23 09/06/24 History release sacubitril 24 mg-valsartan 26 mg 1 tab PO BID .bp 30 days #60 tabs 05/07/23 09/06/24 Rx tablet (Entresto) atorvastatin 80 mg tablet 80 mg PO QHS cholesterol 12/29/23 09/06/24 History gabapentin 300 mg capsule 300 mg PO TID nerve pain 12/29/23 09/06/24 History DIC 2%/RINKU 6%/LIDOC 2% IN 1 - 2 pump subdermal Q6H PRN FOR 02/14/24 09/06/24 History saltsable FEET cholecalciferol (vitamin D3) 1,250 1,250 mcg PO WE supplement 02/14/24 09/03/24 History mcg (50,000 unit) tablet spironolactone 25 mg tablet 25 mg PO DAILY water pill 30 days 02/17/24 09/06/24 Rx #0 tabs ergocalciferol (vitamin D2) 1,250 1,250 mcg PO We@1000 #0 caps 02/19/24 09/03/24 Rx mcg (50,000 unit) capsule (Vitamin D2) escitalopram oxalate 20 mg tablet 20 mg PO DAILY depression 06/29/24 09/06/24 History furosemide 20 mg tablet 20 mg PO DAILY water pill 06/29/24 09/06/24 History midodrine 2.5 mg tablet 2.5 mg PO DAILY blood pressure 06/29/24 09/06/24 History polyethylene glycol 3350 17 17 g PO BID PRN constipation 06/29/24 Unknown History gram/dose oral powder (Miralax) sennosides 8.6 mg-docusate sodium 2 tab PO BID PRN constipation 06/29/24 Unknown History 50 mg tablet (Stimulant Laxative Plus) tizanidine 4 mg tablet 4 mg PO 3XD spasm 06/29/24 09/06/24 History acetaminophen 500 mg tablet 1,000 mg (2 x 500 mg) PO Q8 #0 tabs 09/02/24 09/06/24 Rx sennosides 8.6 mg-docusate sodium 2 tab PO BID #60 tabs 09/16/24 Unknown Rx 50 mg tablet (Stimulant Laxative Plus) metoclopramide HCl 10 mg tablet 10 mg PO Q6H PRN nausea and 09/21/24 Unknown Rx (Reglan) vomiting 5 days #20 tabs nystatin 100,000 unit/gram topical 1 applic topical TID #0 grams 02/11/25 Unknown Rx powder oxycodone 5 mg tablet 5 mg PO Q4H PRN PRN pain 4-10 3 02/11/25 Unknown Rx days #12 tabs insulin glargine 100 unit/mL (3 unit subcut DM 03/30/25 Unknown History mL) subcutaneous pen (Lantus Solostar U-100 Insulin) insulin lispro 100 unit/mL 20 unit subcut DAILY DM 03/30/25 Unknown History subcutaneous pen (Humalog KwikPen (U-100) Insulin) insulin lispro 100 unit/mL 27 unit subcut DAILY DM 03/30/25 Unknown History subcutaneous pen (Humalog KwikPen (U-100) Insulin) OXYGEN - Supplemental ([facility] Pulmonary Information 04/01/25 Unknown History INFORMATIONAL USE ONLY) Allergy/AdvReac Type Severity Reaction Status Date / Time latex Allergy Hives Verified 01/29/25 15:41 Family History Mother Thyroid disorder Diabetes Hypertension Grandmother Diabetes Uncle Diabetes Aunt Diabetes Other Heart disease Family History unable to obtain Surgical History History of cholecystectomy History of appendectomy History of cholecystectomy Surgical History unable to obtain Social History household members: spouse and children housing: house Smoking Status: Unknown if ever smoked alcohol intake: never substance use type: marijuana what type of physical activity do you participate in: none do you feel safe at home: Yes Review of Systems (Anesthesia) ROS Narrative System reviewed and no additional complaints, except as documented.
[2025-04-06] MEDS: Lactated Ringers 1,000 ML 15 ML IV (15:21)
--- NOTE | 2025-04-06 16:23 | PN_ITS ---
Progress Note Patient is still having esophageal dysphagia and will undergo an egd today. Physical Exam Const alert, oriented x3, no apparent distress and healthy appearing General Appearance: cooperative GI normal to inspection, nondistended, normoactive bowel sounds, soft to palpation, non-tender and non-distended Percussion: normal to percussion Rectal Exam: deferred Assessment & Plan Assessment/Plan (1) Esophageal dysphagia: (2) Oropharyngeal dysphagia: (3) Cardiac LV ejection fraction 10-20%: (4) Coronary artery disease: (5) Acute on chronic HFrEF (heart failure with reduced ejection fraction): (6) Pulmonary infarction: (7) Bilateral pulmonary embolism: (8) Pulmonary edema: PLAN: ?54-year-old female with multiple comorbidities presenting with nausea and vomiting upon eating. The primary concern is potential contribution of her pre- existing severe diabetic gastroparesis, which is likely exacerbated by her current critical illness, recent intubation, and potential underlying diabetic neuropathy progression . The recent extubation may also be a contributing factor to swallowing difficulties. Craig issues: * Nausea and vomiting with eating:?Likely secondary to underlying diabetic gastroparesis, potentially worsened by recent critical illness. * Esophageal and mild oropharyngeal dysphagia:?Confirmed by speech pathology, requiring careful management of diet and swallowing techniques. * Poorly controlled diabetes mellitus:?Contributes significantly to long-term complications, including neuropathy and gastroparesis . * Acute on chronic heart failure:?Stable since recent acute exacerbation management. * Recent bilateral PE:?Management per primary team. Differential diagnoses for current symptoms include: * Diabetic gastroparesis (most likely given history) . * Medication side effects (e.g., pain medications). * GERD exacerbation. * Mechanical obstruction (less likely given history). * Post-extubation swallowing dysfunction. Plan * Diagnostic: * Review all current medications for potential side effects contributing to nausea/vomiting. * Consider a gastric emptying study (GES) once the patient is medically stable and off all medications that could affect motility, to objectively assess the severity of gastroparesis if clinical picture is unclear or symptoms persist despite medical management. * Therapeutic: * Continue diet as recommended by speech pathology (e.g., pureed diet, thickened liquids, small frequent meals). * Initiate pro-motility agent (e.g., metoclopramide) to improve gastric emptying, monitoring for potential side effects . * Initiate antiemetics (e.g., ondansetron) for symptomatic relief of nausea and vomiting. * Strict glycemic control is crucial for managing diabetic complications; collaborate with the endocrinology team/primary team on optimizing her glucose management . * Ensure appropriate hydration status * Upper endoscopy to evaluate upper GI tract.. Visit Charges Inpatient E&M: [id number] [facility] Hosp L3
--- NOTE | 2025-04-06 16:23 | PCM.PN.BLA ---
Progress Note Patient is still having esophageal dysphagia and will undergo an egd today. Physical Exam Const alert, oriented x3, no apparent distress and healthy appearing General Appearance: cooperative GI normal to inspection, nondistended, normoactive bowel sounds, soft to palpation, non-tender and non-distended Percussion: normal to percussion Rectal Exam: deferred Assessment & Plan Assessment/Plan (1) Esophageal dysphagia: (2) Oropharyngeal dysphagia: (3) Cardiac LV ejection fraction 10-20%: (4) Coronary artery disease: (5) Acute on chronic HFrEF (heart failure with reduced ejection fraction): (6) Pulmonary infarction: (7) Bilateral pulmonary embolism: (8) Pulmonary edema: PLAN: ?54-year-old female with multiple comorbidities presenting with nausea and vomiting upon eating. The primary concern is potential contribution of her pre-existing severe diabetic gastroparesis, which is likely exacerbated by her current critical illness, recent intubation, and potential underlying diabetic neuropathy progression . The recent extubation may also be a contributing factor to swallowing difficulties. Craig issues: Nausea and vomiting with eating:?Likely secondary to underlying diabetic gastroparesis, potentially worsened by recent critical illness. Esophageal and mild oropharyngeal dysphagia:?Confirmed by speech pathology, requiring careful management of diet and swallowing techniques. Poorly controlled diabetes mellitus:?Contributes significantly to long-term complications, including neuropathy and gastroparesis . Acute on chronic heart failure:?Stable since recent acute exacerbation management. Recent bilateral PE:?Management per primary team. Differential diagnoses for current symptoms include: Diabetic gastroparesis (most likely given history) . Medication side effects (e.g., pain medications). GERD exacerbation. Mechanical obstruction (less likely given history). Post-extubation swallowing dysfunction. Plan Diagnostic: Review all current medications for potential side effects contributing to nausea/vomiting. Consider a gastric emptying study (GES) once the patient is medically stable and off all medications that could affect motility, to objectively assess the severity of gastroparesis if clinical picture is unclear or symptoms persist despite medical management. Therapeutic: Continue diet as recommended by speech pathology (e.g., pureed diet, thickened liquids, small frequent meals). Initiate pro-motility agent (e.g., metoclopramide) to improve gastric emptying, monitoring for potential side effects . Initiate antiemetics (e.g., ondansetron) for symptomatic relief of nausea and vomiting. Strict glycemic control is crucial for managing diabetic complications; collaborate with the endocrinology team/primary team on optimizing her glucose management . Ensure appropriate hydration status Upper endoscopy to evaluate upper GI tract.. Visit Charges Inpatient E&M: [id number] [facility] L3
[2025-04-06] MEDS: Lactated Ringers 500 ML IV (16:38)
[2025-04-06] MEDS: Lidocaine 1% (5 ml sdv) 5 ML Vial 10 ML IV (16:45)
--- NOTE | 2025-04-06 17:01 | PCM.POST.ANE ---
Anesthesia: Postop Eval I Current Vital Signs Temperature: 98.2 F Pulse Rate: 79 Blood Pressure: 114/73 Respiratory Rate: 16 Pulse Ox: 100 Assessment Airway patent: Yes Spontaneous unlabored respirations: Yes nausea: No Vomiting: No Anesthesia Complication: No Fluid Hydration Crystalloid volume administer (ml): 200 Total IV fluid infused: 200 Progress Note Anesthesia document: Postop Eval 1 completed: Yes
--- NOTE | 2025-04-06 17:05 | POSTOPAN2_ITS ---
Anesthesia Postop Eval I Sum Postop Eval Completion status Anesthesia document: Postop Eval 1 completed: Yes Anesthesia Postop Eval I Summary Anesthesia Postop Eval I Summary: Anesthesia Postop Eval I: Assessment Summary Airway patent Yes 04/06/25 17:01 ADDICTION SOCIAL WORKER.TNES Spontaneous unlabored Yes 04/06/25 17:01 ADDICTION SOCIAL WORKER.TNES respirations Mental status nausea No 04/06/25 17:01 ADDICTION SOCIAL WORKER.TNES Vomiting No 04/06/25 17:01 ADDICTION SOCIAL WORKER.TNES Anesthesia Postop Eval I: Fluid Summary Crystalloid volume administer 200 04/06/25 17:01 ADDICTION SOCIAL WORKER.TNES (ml) Colloids volume administered ( ml) Blood Product volume administered (ml) Total IV fluid infused 200 04/06/25 17:01 ADDICTION SOCIAL WORKER.TNES Anesthesia Postop Eval I: Summary Notes Anesthesia Complication No 04/06/25 17:01 ADDICTION SOCIAL WORKER.TNES Anesthesia Complication Comment: Post-operative progress note Anesthesia: Postop Eval II Evaluation Mental status: Awake Pain Level: 0 nausea: No Vomiting: No
--- NOTE | 2025-04-06 17:05 | PCM.POSTANE2 ---
Anesthesia Postop Eval I Sum Postop Eval Completion status Anesthesia document: Postop Eval 1 completed: Yes Anesthesia Postop Eval I Summary Anesthesia Postop Eval I Summary: Anesthesia Postop Eval I: Assessment Summary Airway patent Yes 04/06/25 17:01 HOME [email or web address] Spontaneous unlabored Yes 04/06/25 17:01 HOME ADVISOR.TNES respirations Mental status nausea No 04/06/25 17:01 HOME ADVISOR.TNES Vomiting No 04/06/25 17:01 HOME ADVISOR.[email or web address] Anesthesia Postop Eval I: Fluid Summary Crystalloid volume administer 200 04/06/25 17:01 HOME ADVISOR.TNES (ml) Colloids volume administered ( ml) Blood Product volume administered (ml) Total IV fluid infused 200 04/06/25 17:01 HOME ADVISOR.TNES Anesthesia Postop Eval I: Summary Notes Anesthesia Complication No 04/06/25 17:01 HOME ADVISOR.TNES Anesthesia Complication Comment: Post-operative progress note Anesthesia: Postop Eval II Evaluation Mental status: Awake Pain Level: 0 nausea: No Vomiting: No
--- NOTE | 2025-04-06 17:06 | OP.PROVAT_ITS ---
04/06/2025 Zohreh Pratt [facility], Key Account Director-c Re : Upper GI endoscopy procedure for Giuliana Jackson Dear Terence This procedure was performed on Sunday, April 06, 2025. My impressions and recommendations are as follows: Impressions : - Moderately severe erosive esophagitis with no bleeding. Biopsied. - Benign-appearing esophageal stenosis. Dilated. - Medium-sized hiatal hernia. - Chronic gastritis. Biopsied. - No gross lesions in the entire examined duodenum. Recommendations : - [facility]. - Advance diet as tolerated. - Continue present medications. - Await pathology results. My findings are described in the full procedure note, which is enclosed. If I can be of further assistance, please feel free to contact me at . Sincerely, Jeevan De Jesus, 04/06/2025 5:05:59 PM This report has been signed electronically.
--- NOTE | 2025-04-06 17:06 | OP.EGD_ITS ---
Patient Name: Giuliana Jackson Procedure Date: 04/06/2025 4:33 PM Date of : 1970 Age: 54 Procedure: Upper GI endoscopy Indications: Epigastric abdominal pain, Unexplained iron deficiency anemia, Functional Dyspepsia, Failure to respond to medical treatment Providers: Jeevan De Jesus DO Medicines: Monitored Anesthesia Care Patient Profile: This is a 54 year old female. This is a 54 year old female. Refer to note in patient chart for documentation of history and physical. Patient has symptoms of dysphagia with both liquids and solids, chronic nausea, chronic throat burning and chronic vomiting. Complications: No immediate complications. Procedure: Pre-Anesthesia Assessment: - Prior to the procedure, a History and Physical was performed, and patient medications and allergies were reviewed. The patient is competent. The risks and benefits of the procedure and the sedation options and risks were discussed with the patient. All questions were answered and informed consent was obtained. Patient identification and proposed procedure were verified in the pre-procedure area. Mental Status Examination: alert and oriented. Airway Examination: normal oropharyngeal airway and neck mobility. Respiratory Examination: clear to auscultation. CV Examination: normal. Prophylactic Antibiotics: The patient does not require prophylactic antibiotics. Prior Anticoagulants: The patient has taken no anticoagulant or antiplatelet agents. ASA Grade Assessment: III - A patient with severe systemic disease. After reviewing the risks and benefits, the patient was deemed in satisfactory condition to undergo the procedure. The anesthesia plan was to use monitored anesthesia care (MAC). Immediately prior to administration of medications, the patient was re-assessed for adequacy to receive sedatives. The heart rate, respiratory rate, oxygen saturations, blood pressure, adequacy of pulmonary ventilation, and response to care were monitored throughout the procedure. The physical status of the patient was re-assessed after the procedure. After obtaining informed consent, the endoscope was passed under direct vision. Throughout the procedure, the patient's blood pressure, pulse, and oxygen saturations were monitored continuously. The Endoscope was introduced through the mouth, and advanced to the third part of the duodenum. Small bowel enteroscopy was deemed necessary. The upper GI endoscopy was accomplished with ease. The patient tolerated the procedure well. Scope In: 4:47:52 PM Scope Out: 4:53:43 PM Total Procedure Duration Time 0 hours 5 minutes 51 seconds Findings: Moderately severe esophagitis with no bleeding was found 34 to 39 cm from the incisors. Biopsies were taken with a cold forceps for histology. Verification of patient identification for the specimen was done. Estimated blood loss was minimal. One benign-appearing, intrinsic moderate stenosis was found 21 to 26 cm from the incisors. This stenosis measured 6 cm (in length). The stenosis was traversed after dilation. A guidewire was placed and the scope was withdrawn. Dilation was performed with a Savary dilator with no resistance at 60 Fr. The dilation site was examined and showed moderate mucosal disruption. Estimated blood loss was minimal. A medium-sized hiatal hernia was present. Patchy moderate inflammation characterized by erosions and erythema was found in the gastric body. Biopsies were taken with a cold forceps for histology. Biopsies were taken with a cold forceps for Helicobacter pylori testing. Verification of patient identification for the specimen was done. Estimated blood loss was minimal. No gross lesions were noted in the entire examined duodenum. Impression: - Moderately severe erosive esophagitis with no bleeding. Biopsied. - Benign-appearing esophageal stenosis. Dilated. - Medium-sized hiatal hernia. - Chronic gastritis. Biopsied. - No gross lesions in the entire examined duodenum. Recommendation: - [facility]. - Advance diet as tolerated. - Continue present medications. - Await pathology results. Procedure Code(s): --- Professional --- 57987, Esophagogastroduodenoscopy, flexible, transoral; with insertion of guide wire followed by passage of dilator(s) through esophagus over guide wire [id number], 59,51, Small intestinal endoscopy, enteroscopy beyond second portion of duodenum, not including ileum; with biopsy, single or multiple CPT copyright 2021 [employer]. All rights reserved. The codes documented in this report are preliminary and upon medical record coder review may be revised to meet current compliance requirements. Jeevan De Jesus DO 04/06/2025 5:05:59 PM This report has been signed electronically. Number of Addenda: 0 Note Initiated On: 04/06/2025 4:33 PM
[2025-04-06 20:41] LABS: Vancomycin, Random Level 18.5 ug/mL (0.0-15.0)
--- NOTE | 2025-04-06 21:06 | PCM.RX.CS ---
Consult Antibiotic Management Pharmacy has been consulted to manage selected antibiotic: Vancomycin Type of Intervention Type of Consult: Follow-up Suspected Infection Suspected Infection: Pneumonia Labs Labs: Sodium 138 mmol/L (133-145) 04/06/25 04:19 Potassium 3.7 mmol/L (3.3-5.1) 04/06/25 04:19 Chloride 106 mmol/L (98-108) 04/06/25 04:19 Carbon Dioxide 21.9 mmol/L (21.0-32.0) 04/06/25 04:19 Anion Gap 10 (5-15) 04/06/25 04:19 BUN 23 mg/dL (4-19) H 04/06/25 04:19 Creatinine 1.11 mg/dL (0.70-1.20) 04/06/25 04:19 Est GFR (MDRD) Non-Af 59 (>60) L 04/06/25 04:19 BUN/Creatinine Ratio 20.9 RATIO (10-20) H 04/06/25 04:19 Glucose 136 mg/dL (70-99) H 04/06/25 04:19 Vancomycin Trough 31.0 ug/mL (5.0-15.0) H 04/05/25 21:27 Random Vancomycin 18.5 ug/mL (0.0-15.0) H 04/06/25 19:29 Microbiology Microbiology: Microbiology 03/30/25 11:20 Blood Culture (Wb) - Left Wrist Blood Culture - Final No growth in 5 days. 03/30/25 11:00 Blood Culture (Wb) - Chest Blood Culture - Final No growth in 5 days. 03/30/25 16:00 Sputum, Induced/Lukens Gram Stain - Final 03/30/25 16:00 Sputum, Induced/Lukens Respiratory Culture - Final Staphylococcus aureus 03/30/25 11:46 Urine, Catheterized Urine Culture - Final Culture exhibits no growth. 03/31/25 08:30 Nasal Secretion MRSA (PCR) - Final 03/30/25 11:46 Urine Catheter - Hathaway Legionella Antigen - Final 03/30/25 11:46 Urine Catheter - Hathaway Streptococcus pneumoniae Antigen (M - Final 03/30/25 10:41 Mucosa - Nose SARS-CoV-2, Influenza & RSV (PCR) - Final Estimated Creatinine Clearance Estimated Creatinine Clearance: 65 Goal Trough Goal Trough: 15-20 mcg/mL Pharmacy Plan for Drug Dosing Pharmacy Plan for Drug Dosing: Pharmacy Service will continue to monitor and adjust dosing as required. VANCOMYCIN LEVEL RECEIVED Current Vancomycin Dose: Held Number of Doses Received: 15-20 Vancomycin Level: 18.5 Hours Since Last Dose: 32 Renal Function: SCr: 1.11, CrCl: 65 Vancomycin Plan/Comments: Will restart regimen with 1000 mg Q24H regimen Pending Level: 04/09/25 @ 2130 Date/Time Labs Ordered Labs to be done on [date and time ordered]: 04/09/25 @ 2130
[2025-04-06] MEDS: Vancomycin HCl 1,000 MG in 0.9% Normal Saline (250mL Bag) 250 ML 250 MG IV (21:35)
[2025-04-06] MEDS: Senna/Docusate Sodium 1 Tablet 2 TABLET PO (21:38)
[2025-04-06] MEDS: APIXABAN 5 MG TABLET 10 MG PO (21:38)
[2025-04-06] MEDS: MELATONIN 3 MG TABLET PO (21:43)
[2025-04-07 03:30] VITALS: BP 126/60; PULSE 78; RESP 16; TEMP 36.4; O2SAT 98
[2025-04-07 06:03] LABS: Hematocrit 30.5 % (37-47); Hemoglobin 10.0 g/dL (12.0-15.0); Immature Granulocytes Count 0.060 X10^3/uL (0.0-0.0); Mean Corp Hgb Conc 32.8 g/dL (32-36); Mean Corpuscular Volume 82.9 fL (81-99); Mean Platelet Vol. 9.6 fl (6.2-12.0); NRBC Flagged by Analyzer 0 % (0-5); Platelet Count 237 K/mm3 (150-450); RBC Distribution Width CV 13.8 % (11.6-14.6); RBC Distribution Width SD 41.1 fl (35.1-43.9); Red Blood Count 3.68 M/mm3 (4.2-5.4); White Blood Count 9.8 K/mm3 (4.4-11.0)
[2025-04-07 06:29] LABS: Anion Gap 11 (5-15); BUN 20 mg/dL (4-19); BUN/Creat Ratio 20.2 RATIO (10-20); Calcium,Total 8.7 mg/dL (7.6-11.0); Carbon Dioxide 23.4 mmol/L (21.0-32.0); Chloride 103 mmol/L (98-108); Estimated Creatinine Clearance 72.94 ml/min (50-250); Glucose 156 mg/dL (70-99); Potassium 3.7 mmol/L (3.3-5.1)
[2025-04-07 07:53] VITALS: BMI 30.2
--- NOTE | 2025-04-07 07:55 | PCM.PN.HOSP ---
Reason for Visit Chief Complaint: Shortness of breath Subjective Subjective Patient underwent EGD today prior findings as documented below. Objective Data Objective Data Vital Signs: Vital Signs Temp Pulse Resp BP Pulse Ox O2 Del Method O2 Flow Rate 97.5 F L 78 16 126/60 H 98 Room Air 1 04/07/25 03:30 04/07/25 03:30 04/07/25 03:30 04/07/25 03:30 04/07/25 03:30 04/07/25 03:30 04/06/25 14:22 FiO2 30 04/06/25 14:22 Oxygen Flow Rate (L/min) 1 Oxygen Delivery Method Room Air Weight: 88.6 kg Body Mass Index (BMI) 31.4 Intake & Output: Intake and Output for Last 24 Hours 04/05/25 04/06/25 04/07/25 22:59 23:59 23:59 Intake Total 0 / 1990 1070 / 1070 Output Total 350 / 350 1250 / 1250 Balance 1340 / 1640 -180 / -180 Lab / Micro Data 04/07/25 05:31 04/07/25 05:31 Labs: Laboratory Results - last 24 hr 04/06/25 09:24: Random Vancomycin 22.7 H 04/06/25 11:13: POC Glucose 138 H 04/06/25 17:54: POC Glucose 120 H 04/06/25 19:29: Random Vancomycin 18.5 H 04/06/25 21:34: POC Glucose 282 H 04/07/25 05:31: WBC 9.8, RBC 3.68 L, Hgb 10.0 L, Hct 30.5 L, MCV 82.9, MCH 27.2, MCHC 32.8, RDW Std Deviation 41.1, RDW Coeff of Spencer 13.8, Plt Count 237, MPV 9.6, Immature Gran % (Auto) 0.600, Neut % (Auto) 70.8 H, Lymph % (Auto) 19.0, [place] % (Auto) 7.9, Eos % (Auto) 1.1, Baso % (Auto) 0.6, Absolute Neuts (auto) 6.9, Absolute Lymphs (auto) 1.87, Nucleated RBC % 0, Sodium 137, Potassium 3.7, Chloride 103, Carbon Dioxide 23.4, Anion Gap 11, BUN 20 H, Creatinine 1.00, Estim Creat Clear Calc 72.94, Est GFR (MDRD) Non-Af 67, BUN/Creatinine Ratio 20.2 H, Glucose 156 H, Calcium 8.7 04/07/25 06:55: POC Glucose 152 H Micro: Microbiology 03/30/25 11:20 Blood Culture (Wb) - Left Wrist Blood Culture - Final No growth in 5 days. 03/30/25 11:00 Blood Culture (Wb) - Chest Blood Culture - Final No growth in 5 days. 03/30/25 16:00 Sputum, Induced/Lukens Gram Stain - Final 03/30/25 16:00 Sputum, Induced/Lukens Respiratory Culture - Final Staphylococcus aureus 03/30/25 11:46 Urine, Catheterized Urine Culture - Final Culture exhibits no growth. 03/31/25 08:30 Nasal Secretion MRSA (PCR) - Final 03/30/25 11:46 Urine Catheter - Hathaway Legionella Antigen - Final 03/30/25 11:46 Urine Catheter - Hathaway Streptococcus pneumoniae Antigen (M - Final 03/30/25 10:41 Mucosa - Nose SARS-CoV-2, Influenza & RSV (PCR) - Final Rhythm Strip Rhythm Strip: Sinus Rhythm Rate: 80 Ectopy: None Physical Exam Narrative GENERAL: Patient is cooperative HEENT: Atraumatic; normocephalic EYES; Anicteric, Normal Conjunctiva NECK; supple, normal thyroid, RESPIRATORY: Diminished to auscultation CARDIOVASCULAR: Regular S1 S2, GI: soft, normoactive bowel sounds, : No Renal angle tenderness; EXTREMITIES: Bipedal edema, no clubbing, MUSCULOSKELETAL: Transmetatarsal amputation of the left foot NEURO: Awake, no lateralizing SKIN: No Rash Assessment & Plan Assessment/Plan (1) Acute hypoxemic respiratory failure: (2) Acute on chronic HFrEF (heart failure with reduced ejection fraction): (3) Bilateral pulmonary embolism: PLAN: Plan Patient is a 54-year-old lady who presented to the emergency department with progressive shortness of breath studies demonstrated bilateral PE with diffuse patchy interstitial alveolar infiltrates with peripheral wedge-shaped consolidation most severe at the lung bases. Patient was initially placed on noninvasive ventilation BiPAP however respiratory status deteriorated resulting in patient being intubated and admitted to the intensive care unit 1. Acute hypoxic respiratory failure ? Due to combination of bilateral pulmonary embolism, acute congestive heart failure with reduced ejection fraction, suspected pneumonia. Patient was initially manage on BiPAP however respiratory status continued to deteriorate resulting in patient being intubated and subsequently admitted to the intensive care unit. Consult was placed to hospitality recruiter/pulmonary medicine. Management of patient events deferred ? 04/01/2025; attempt at weaning this morning was unsuccessful after patient had a bout of emesis. ? 04/02/2025; patient awake on the vent currently undergoing weaning trial ? 04/06/2025; patient remains on oxygen nasal cannula 2. Acute bilateral pulmonary embolism ? With suspected pulmonary infarction. CT of the chest obtained did show partly occlusive thrombus visible in the proximal right lower lobe pulmonary arteries, partly occlusive clot visible to the right upper lobe pulmonary vessels, nonocclusive clot visible in the left upper lobe proximal branch vessels, diffuse patchy interstitial and alveolar infiltrate with peripheral wedge-shaped consolidation, most severe at the bases.Patient started on heparin ? 04/01/2025; patient remains on heparin ? 04/02/2025; patient remains on heparin with plans to transition to DOAC once patient is extubated ? 04/06/2025; patient is on apixaban 3. Acute on chronic congestive heart failure with reduced ejection fraction ?2D echo demonstrated estimated LVEF of 20% with moderately enlarged left atrium, moderate mitral valve insufficiency and trivial pericardial effusion. Patient previous EF was 30%. Patient is on Aldactone as well as furosemide. Consult placed to cardiology ? 04/01/2025; patient was seen in consultation by Dr. Fajardo with cardiology case discussed with him plan is to resume patient Entresto when hemodynamically stable 4. Sepsis secondary to pneumonia ? Patient was found to have elevated lactic acid level with evidence of endorgan dysfunction?respiratory failure. Patient did receive IV antibiotics cultures sent continued with antibiotics pending receipt of culture results ? 04/01/2025 patient sputum cultures positive for MRSA added vancomycin to treatment 5. Diabetes mellitus type 2 with complications including diabetic neuropathy as well as gastroparesis ? Patient recent hemoglobin A1c was 13.2 on 01/29/2025. Glucose levels were markedly elevated on admission. Patient was started on long-acting insulin in addition to Accu-Cheks every 6 hours with sliding scale coverage. Subsequent adjustment made to patient long-acting insulin ? 04/01/2025; patient did develop hypoglycemia following adjustments of her insulin regimen made further adjustment by decreasing her dose. Plan is to continue to monitor and adjust dose as needed 6. Peripheral arterial disease ? Previous stent about 1 year ago Patient is on recommended medications including dual antiplatelet therapy as well as statin therapy. Plan is for patient to follow-up as outpatient 7. GERD/possible esophagitis ? Patient is on PPI 8. Chronic hypotension ? Patient is on midodrine. Held on admission 9. Dyslipidemia ?Patient is on statin therapy, continued at home dose 10. Tobacco dependence Plan is to vp & general counsel patient on cessation once of the event 11. Chronic back pain ? Secondary to chronic compression fractures plan is to continue with PT OT as tolerated 12. Anemia ? Secondary to chronic disorder monitoring H&H and transfuse if patient becomes symptomatic or hemoglobin falls below 7 ? 04/02/2025; patient hemoglobin remains low at 8.3 13. History of depression with anxiety ? Patient is on escitalopram plan is to resume following extubation 14. Vitamin D deficiency ? Patient is on vitamin D supplementation 15. Hypokalemia ? Corrected per protocol repeat potassium levels ordered for a.m. ? 04/02/2025; potassium remains low additional potassium given 16. Suspected aspiration ? Modified barium swallow found soft tissue excrescence on pharyngoesophageal region. Consult subsequently placed to GI. Plans for patient to undergo EGD ? EGD demonstrated - Moderately severe erosive esophagitis with no bleeding. Biopsied. - Benign-appearing esophageal stenosis. Dilated. - Medium-sized hiatal hernia. - Chronic gastritis. Biopsied. - No gross lesions in the entire examined duodenum. 17. Physical deconditioning ? Requested for PT OT eval and social media content manager to assist with discharge planning Time spent in the patient's overall evaluation,decision-making process, review of diagnostic data, adjustment of management, discussion with other providers, nursing nursing and ancillary staff involved in patient's care documentation, 38 Minutes Charges/Coding Visit Charges Inpatient E&M: 74630 Subs Hosp L2
[2025-04-07] MEDS: SACUBITRIL/VALSARTAN 24/26 MG TABLET 1 EACH PO ×2 (08:04→22:58)
[2025-04-07] MEDS: Senna/Docusate Sodium 1 Tablet 2 TABLET PO (08:05)
[2025-04-07] MEDS: APIXABAN 5 MG TABLET 10 MG PO ×2 (08:06→22:58)
[2025-04-07 08:10] VITALS: BP 123/63; PULSE 80; RESP 14; TEMP 36.5; O2SAT 99
[2025-04-07] MEDS: Insulin Glargine-YFGN 100 UNIT/ML Pen 10 UNIT SC (09:43)
[2025-04-07 15:37] VITALS: BP 135/79; PULSE 83; RESP 14; TEMP 36.8; O2SAT 98
[2025-04-07 22:56] VITALS: BP 111/59; PULSE 83; RESP 16; TEMP 36.6; O2SAT 100
[2025-04-07] MEDS: Vancomycin HCl 1,000 MG in 0.9% Normal Saline (250mL Bag) 250 ML 250 MG IV (22:58)
[2025-04-07] MEDS: 0.9% Saline Lock 10 ML Syringe IV (23:01)
[2025-04-08 04:07] VITALS: BP 133/71; PULSE 78; RESP 16; TEMP 36.6; O2SAT 97
[2025-04-08 04:54] VITALS: BMI 30.1
--- NOTE | 2025-04-08 08:06 | PCM.PN.HOSP ---
Reason for Visit Chief Complaint: Shortness of breath Subjective Subjective Patient seen complains of not having had enough rest. Transferred to alf facility still pending Objective Data Objective Data Vital Signs: Vital Signs Temp Pulse Resp BP Pulse Ox O2 Del Method O2 Flow Rate 98 F 78 16 133/71 H 97 Room Air 1 04/08/25 04:07 04/08/25 04:07 04/08/25 04:07 04/08/25 04:07 04/08/25 04:07 04/08/25 04:07 04/06/25 14:22 FiO2 30 04/06/25 14:22 Oxygen Flow Rate (L/min) 1 Oxygen Delivery Method Room Air Weight: 85 kg Body Mass Index (BMI) 30.1 Intake & Output: Intake and Output for Last 24 Hours 04/06/25 04/07/25 04/08/25 23:59 23:59 23:59 Intake Total 1070 / 1070 1384.75 / 1384.75 270 / 270 Output Total 1250 / 1250 800 / 800 450 / 450 Balance -180 / -180 584.75 / 584.75 -180 / -180 Lab / Micro Data 04/07/25 05:31 04/07/25 05:31 Labs: Laboratory Results - last 24 hr 04/07/25 12:22: POC Glucose 158 H 04/07/25 17:13: POC Glucose 249 H 04/07/25 22:54: POC Glucose 195 H 04/08/25 06:53: POC Glucose 179 H Micro: Microbiology 03/30/25 11:20 Blood Culture (Wb) - Left Wrist Blood Culture - Final No growth in 5 days. 03/30/25 11:00 Blood Culture (Wb) - Chest Blood Culture - Final No growth in 5 days. 03/30/25 16:00 Sputum, Induced/Lukens Gram Stain - Final 03/30/25 16:00 Sputum, Induced/Lukens Respiratory Culture - Final Staphylococcus aureus 03/30/25 11:46 Urine, Catheterized Urine Culture - Final Culture exhibits no growth. 03/31/25 08:30 Nasal Secretion MRSA (PCR) - Final 03/30/25 11:46 Urine Catheter - Hathaway Legionella Antigen - Final 03/30/25 11:46 Urine Catheter - Hathaway Streptococcus pneumoniae Antigen (M - Final 03/30/25 10:41 Mucosa - Nose SARS-CoV-2, Influenza & RSV (PCR) - Final Rhythm Strip Rhythm Strip: Sinus Rhythm Rate: 80 Ectopy: None Physical Exam Narrative GENERAL: Patient is cooperative HEENT: Atraumatic; normocephalic EYES; Anicteric, Normal Conjunctiva NECK; supple, normal thyroid, RESPIRATORY: Diminished to auscultation CARDIOVASCULAR: Regular S1 S2, GI: soft, normoactive bowel sounds, : No Renal angle tenderness; EXTREMITIES: Bipedal edema, no clubbing, MUSCULOSKELETAL: Transmetatarsal amputation of the left foot NEURO: Awake, no lateralizing SKIN: No Rash Assessment & Plan Assessment/Plan (1) Acute hypoxemic respiratory failure: (2) Acute on chronic HFrEF (heart failure with reduced ejection fraction): (3) Bilateral pulmonary embolism: PLAN: Plan Patient is a 54-year-old lady who presented to the emergency department with progressive shortness of breath studies demonstrated bilateral PE with diffuse patchy interstitial alveolar infiltrates with peripheral wedge-shaped consolidation most severe at the lung bases. Patient was initially placed on noninvasive ventilation BiPAP however respiratory status deteriorated resulting in patient being intubated and admitted to the intensive care unit 1. Acute hypoxic respiratory failure ? Due to combination of bilateral pulmonary embolism, acute congestive heart failure with reduced ejection fraction, suspected pneumonia. Patient was initially manage on BiPAP however respiratory status continued to deteriorate resulting in patient being intubated and subsequently admitted to the intensive care unit. Consult was placed to hot car operator/pulmonary medicine. Management of patient events deferred ? 04/01/2025; attempt at weaning this morning was unsuccessful after patient had a bout of emesis. ? 04/02/2025; patient awake on the vent currently undergoing weaning trial ? 04/06/2025; patient remains on oxygen nasal cannula ? 04/08/2025; patient back on room air. Awaiting insurance precertification prior to transfer to alf facility 2. Acute bilateral pulmonary embolism ? With suspected pulmonary infarction. CT of the chest obtained did show partly occlusive thrombus visible in the proximal right lower lobe pulmonary arteries, partly occlusive clot visible to the right upper lobe pulmonary vessels, nonocclusive clot visible in the left upper lobe proximal branch vessels, diffuse patchy interstitial and alveolar infiltrate with peripheral wedge-shaped consolidation, most severe at the bases.Patient started on heparin ? 04/01/2025; patient remains on heparin ? 04/02/2025; patient remains on heparin with plans to transition to DOAC once patient is extubated ? 04/06/2025; patient is on apixaban 3. Acute on chronic congestive heart failure with reduced ejection fraction ?2D echo demonstrated estimated LVEF of 20% with moderately enlarged left atrium, moderate mitral valve insufficiency and trivial pericardial effusion. Patient previous EF was 30%. Patient is on Aldactone as well as furosemide. Consult placed to cardiology ? 04/01/2025; patient was seen in consultation by Dr. Fajardo with cardiology case discussed with him plan is to resume patient Entresto when hemodynamically stable 4. Sepsis secondary to pneumonia ? Patient was found to have elevated lactic acid level with evidence of endorgan dysfunction?respiratory failure. Patient did receive IV antibiotics cultures sent continued with antibiotics pending receipt of culture results ? 04/01/2025 patient sputum cultures positive for MRSA added vancomycin to treatment 5. Diabetes mellitus type 2 with complications including diabetic neuropathy as well as gastroparesis ? Patient recent hemoglobin A1c was 13.2 on 01/29/2025. Glucose levels were markedly elevated on admission. Patient was started on long-acting insulin in addition to Accu-Cheks every 6 hours with sliding scale coverage. Subsequent adjustment made to patient long-acting insulin ? 04/01/2025; patient did develop hypoglycemia following adjustments of her insulin regimen made further adjustment by decreasing her dose. Plan is to continue to monitor and adjust dose as needed 6. Peripheral arterial disease ? Previous stent about 1 year ago Patient is on recommended medications including dual antiplatelet therapy as well as statin therapy. Plan is for patient to follow-up as outpatient 7. GERD/possible esophagitis ? Patient is on PPI 8. Chronic hypotension ? Patient is on midodrine. Held on admission 9. Dyslipidemia ?Patient is on statin therapy, continued at home dose 10. Tobacco dependence Plan is to drug counselor patient on cessation once of the event 11. Chronic back pain ? Secondary to chronic compression fractures plan is to continue with PT OT as tolerated 12. Anemia ? Secondary to chronic disorder monitoring H&H and transfuse if patient becomes symptomatic or hemoglobin falls below 7 ? 04/02/2025; patient hemoglobin remains low at 8.3 13. History of depression with anxiety ? Patient is on escitalopram plan is to resume following extubation 14. Vitamin D deficiency ? Patient is on vitamin D supplementation 15. Hypokalemia ? Corrected per protocol repeat potassium levels ordered for a.m. ? 04/02/2025; potassium remains low additional potassium given 16. Suspected aspiration ? Modified barium swallow found soft tissue excrescence on pharyngoesophageal region. Consult subsequently placed to GI. Plans for patient to undergo EGD ? EGD demonstrated - Moderately severe erosive esophagitis with no bleeding. Biopsied. - Benign-appearing esophageal stenosis. Dilated. - Medium-sized hiatal hernia. - Chronic gastritis. Biopsied. - No gross lesions in the entire examined duodenum. 17. Physical deconditioning ? Requested for PT OT eval and delinquency prevention social worker to assist with discharge planning Time spent in the patient's overall evaluation,decision-making process, review of diagnostic data, adjustment of management, discussion with other providers, nursing nursing and ancillary staff involved in patient's care documentation, 35 Minutes Charges/Coding Visit Charges Inpatient E&M: 05937 Subs Hosp L2
--- NOTE | 2025-04-08 08:40 | CASEMGMT ---
Discharge Planning Updates sent via [facility] to [facility] with note to forward to insurance and request to check on status of precert. Arelis Ngo DC Planning Asst
--- NOTE | 2025-04-08 09:01 | CASEMGMT ---
Social Work SW spoke with the patient and informed her that the insurance has not approved the referral to [facility] yet. SW informed the patient SW will let her know when there is an update. Patient reported she is able to use her wheelchair in her home. NARCISA Miranda
[2025-04-08 09:20] VITALS: BP 127/72; PULSE 84; RESP 14; TEMP 36.6; O2SAT 99
[2025-04-08] MEDS: SACUBITRIL/VALSARTAN 24/26 MG TABLET 1 EACH PO ×2 (09:24→22:58)
[2025-04-08] MEDS: APIXABAN 5 MG TABLET 10 MG PO ×2 (09:24→22:57)
[2025-04-08] MEDS: Senna/Docusate Sodium 1 Tablet 2 TABLET PO (09:24)
[2025-04-08] MEDS: Insulin Glargine-YFGN 100 UNIT/ML Pen 10 UNIT SC (09:27)
--- NOTE | 2025-04-08 12:43 | CASEMGMT ---
Social Work KIKE called the daughter Ashlee. KIKE informed her that the insurance company has not approved the patient yet to DC to [facility]. The daughter reported she does not work. KIKE discussed HH if the patient DC home. Ashlee is concerned her mother will not be compliant with her meds or comply with HH. KIKE discussed a referral to [facility] and the daughter was open to a referral. Ashlee reported she does not think her mother will want to go to [facility]. NARCISA Greer
--- NOTE | 2025-04-08 12:59 | CASEMGMT ---
Social Work SW spoke with the patient and she was agreeable to a referral to [facility]. SW made the referral. NARCISA Miranda
--- NOTE | 2025-04-08 14:36 | CASEMGMT ---
Discharge Planning A list of HH providers including quality and resource use data and consistent with the patient's preferred geographic region, medical needs, and insurance network was created in [employer] Guide.? This list was provided to the SW. Arelis Ngo Discharge Planning Asst.
--- NOTE | 2025-04-08 15:35 | CASEMGMT ---
Social Work A list of?HH?providers including quality and resource use data and consistent with the patient's preferred geographic region, medical needs, and insurance network was created in [employer] Guide.? This list was provided to the patient. NARCISA Felton
[2025-04-08 17:03] VITALS: BP 118/59; PULSE 84; RESP 14; TEMP 36.6; O2SAT 100
[2025-04-08 22:55] VITALS: BP 94/53; PULSE 84; RESP 16; TEMP 36.8; O2SAT 97
[2025-04-08 23:04] VITALS: BP 126/62
[2025-04-09 02:21] VITALS: BP 117/65; PULSE 78; RESP 16; TEMP 36.6; O2SAT 98
[2025-04-09 05:45] VITALS: BMI 30.9
[2025-04-09 08:20] VITALS: BP 116/63; PULSE 83; RESP 17; TEMP 37; O2SAT 98
[2025-04-09] MEDS: SACUBITRIL/VALSARTAN 24/26 MG TABLET 1 EACH PO ×2 (09:01→20:59)
[2025-04-09] MEDS: APIXABAN 5 MG TABLET 10 MG PO ×2 (09:01→20:59)
[2025-04-09] MEDS: Insulin Glargine-YFGN 100 UNIT/ML Pen 10 UNIT SC (09:05)
--- NOTE | 2025-04-09 09:25 | PCM.PN.HOSP ---
Reason for Visit Chief Complaint: Shortness of breath Subjective Subjective Patient seen had an uneventful night. Still waiting for insurance pre-CERT prior to transfer to [facility] facility Objective Data Objective Data Vital Signs: Vital Signs Temp Pulse Resp BP Pulse Ox O2 Del Method O2 Flow Rate 98.6 F 83 17 116/63 98 Room Air 1 04/09/25 08:20 04/09/25 08:20 04/09/25 08:20 04/09/25 08:20 04/09/25 08:20 04/09/25 08:20 04/06/25 14:22 FiO2 30 04/06/25 14:22 Oxygen Flow Rate (L/min) 1 Oxygen Delivery Method Room Air Weight: 87.5 kg Body Mass Index (BMI) 30.9 Intake & Output: Intake and Output for Last 24 Hours 04/07/25 04/08/25 04/09/25 23:59 23:59 23:59 Intake Total 1384.75 / 1384.75 1590 / 1590 Output Total 800 / 800 2350 / 2350 Balance 584.75 / 584.75 -760 / -760 Lab / Micro Data 04/07/25 05:31 04/07/25 05:31 Labs: Laboratory Results - last 24 hr 04/08/25 11:52: POC Glucose 303 H 04/08/25 17:05: POC Glucose 164 H 04/08/25 20:14: POC Glucose 169 H 04/08/25 22:55: POC Glucose 172 H 04/09/25 05:36: POC Glucose 153 H Micro: Microbiology 03/30/25 11:20 Blood Culture (Wb) - Left Wrist Blood Culture - Final No growth in 5 days. 03/30/25 11:00 Blood Culture (Wb) - Chest Blood Culture - Final No growth in 5 days. 03/30/25 16:00 Sputum, Induced/Lukens Gram Stain - Final 03/30/25 16:00 Sputum, Induced/Lukens Respiratory Culture - Final Staphylococcus aureus 03/30/25 11:46 Urine, Catheterized Urine Culture - Final Culture exhibits no growth. 03/31/25 08:30 Nasal Secretion MRSA (PCR) - Final 03/30/25 11:46 Urine Catheter - Hathaway Legionella Antigen - Final 03/30/25 11:46 Urine Catheter - Hathaway Streptococcus pneumoniae Antigen (M - Final 03/30/25 10:41 Mucosa - Nose SARS-CoV-2, Influenza & RSV (PCR) - Final Rhythm Strip Rhythm Strip: Sinus Rhythm Rate: 80 Ectopy: None Physical Exam Narrative GENERAL: Patient is cooperative HEENT: Atraumatic; normocephalic EYES; Anicteric, Normal Conjunctiva NECK; supple, normal thyroid, RESPIRATORY: Diminished to auscultation CARDIOVASCULAR: Regular S1 S2, GI: soft, normoactive bowel sounds, : No Renal angle tenderness; EXTREMITIES: Bipedal edema, no clubbing, MUSCULOSKELETAL: Transmetatarsal amputation of the left foot NEURO: Awake, no lateralizing SKIN: No Rash Assessment & Plan Assessment/Plan (1) Acute hypoxemic respiratory failure: (2) Acute on chronic HFrEF (heart failure with reduced ejection fraction): (3) Bilateral pulmonary embolism: PLAN: Plan Patient is a 54-year-old lady who presented to the emergency department with progressive shortness of breath studies demonstrated bilateral PE with diffuse patchy interstitial alveolar infiltrates with peripheral wedge-shaped consolidation most severe at the lung bases. Patient was initially placed on noninvasive ventilation BiPAP however respiratory status deteriorated resulting in patient being intubated and admitted to the intensive care unit 1. Acute hypoxic respiratory failure ? Due to combination of bilateral pulmonary embolism, acute congestive heart failure with reduced ejection fraction, suspected pneumonia. Patient was initially manage on BiPAP however respiratory status continued to deteriorate resulting in patient being intubated and subsequently admitted to the intensive care unit. Consult was placed to fiber machine tender/pulmonary medicine. Management of patient events deferred ? 04/01/2025; attempt at weaning this morning was unsuccessful after patient had a bout of emesis. ? 04/02/2025; patient awake on the vent currently undergoing weaning trial ? 04/06/2025; patient remains on oxygen nasal cannula ? 04/08/2025; patient back on room air. Awaiting insurance precertification prior to transfer to [facility] facility 2. Acute bilateral pulmonary embolism ? With suspected pulmonary infarction. CT of the chest obtained did show partly occlusive thrombus visible in the proximal right lower lobe pulmonary arteries, partly occlusive clot visible to the right upper lobe pulmonary vessels, nonocclusive clot visible in the left upper lobe proximal branch vessels, diffuse patchy interstitial and alveolar infiltrate with peripheral wedge-shaped consolidation, most severe at the bases.Patient started on heparin ? 04/01/2025; patient remains on heparin ? 04/02/2025; patient remains on heparin with plans to transition to DOAC once patient is extubated ? 04/06/2025; patient is on apixaban 3. Acute on chronic congestive heart failure with reduced ejection fraction ?2D echo demonstrated estimated LVEF of 20% with moderately enlarged left atrium, moderate mitral valve insufficiency and trivial pericardial effusion. Patient previous EF was 30%. Patient is on Aldactone as well as furosemide. Consult placed to cardiology ? 04/01/2025; patient was seen in consultation by Dr. Fajardo with cardiology case discussed with him plan is to resume patient Entresto when hemodynamically stable 4. Sepsis secondary to pneumonia ? Patient was found to have elevated lactic acid level with evidence of endorgan dysfunction?respiratory failure. Patient did receive IV antibiotics cultures sent continued with antibiotics pending receipt of culture results ? 04/01/2025 patient sputum cultures positive for MRSA added vancomycin to treatment 5. Diabetes mellitus type 2 with complications including diabetic neuropathy as well as gastroparesis ? Patient recent hemoglobin A1c was 13.2 on 01/29/2025. Glucose levels were markedly elevated on admission. Patient was started on long-acting insulin in addition to Accu-Cheks every 6 hours with sliding scale coverage. Subsequent adjustment made to patient long-acting insulin ? 04/01/2025; patient did develop hypoglycemia following adjustments of her insulin regimen made further adjustment by decreasing her dose. Plan is to continue to monitor and adjust dose as needed 6. Peripheral arterial disease ? Previous stent about 1 year ago Patient is on recommended medications including dual antiplatelet therapy as well as statin therapy. Plan is for patient to follow-up as outpatient 7. GERD/possible esophagitis ? Patient is on PPI 8. Chronic hypotension ? Patient is on midodrine. Held on admission 9. Dyslipidemia ?Patient is on statin therapy, continued at home dose 10. Tobacco dependence Plan is to financial aid counselor patient on cessation once of the event 11. Chronic back pain ? Secondary to chronic compression fractures plan is to continue with PT OT as tolerated 12. Anemia ? Secondary to chronic disorder monitoring H&H and transfuse if patient becomes symptomatic or hemoglobin falls below 7 ? 04/02/2025; patient hemoglobin remains low at 8.3 13. History of depression with anxiety ? Patient is on escitalopram plan is to resume following extubation 14. Vitamin D deficiency ? Patient is on vitamin D supplementation 15. Hypokalemia ? Corrected per protocol repeat potassium levels ordered for a.m. ? 04/02/2025; potassium remains low additional potassium given 16. Suspected aspiration ? Modified barium swallow found soft tissue excrescence on pharyngoesophageal region. Consult subsequently placed to GI. Plans for patient to undergo EGD ? EGD demonstrated - Moderately severe erosive esophagitis with no bleeding. Biopsied. - Benign-appearing esophageal stenosis. Dilated. - Medium-sized hiatal hernia. - Chronic gastritis. Biopsied. - No gross lesions in the entire examined duodenum. 04/09/2025; On PPI 17. Physical deconditioning ? Requested for PT OT eval and executive secretary social welfare to assist with discharge planning -04/09/2025; Patient seen had an uneventful night. Still waiting for insurance pre-CERT prior to transfer to [facility] facility Time spent in the patient's overall evaluation,decision-making process, review of diagnostic data, adjustment of management, discussion with other providers, nursing nursing and ancillary staff involved in patient's care documentation, 35 Minutes Charges/Coding Visit Charges Inpatient E&M: 53141 Subs Hosp L2
--- NOTE | 2025-04-09 10:54 | CASEMGMT ---
Discharge Planning Contact information for Harshil REYNALDO rec'd from [facility]. [phone], auth ref# [id number]. Harshil reports that auth was rec'd on 04/06 and is still pending, waiting review. and Sanjana updated. Arelis Ngo DC Planning Asst.
[2025-04-09 14:20] VITALS: BP 97/52; PULSE 78; RESP 15; TEMP 36.7; O2SAT 94
--- NOTE | 2025-04-09 15:58 | CASEMGMT ---
Addendum entered by Arelis Ngo 04/10/25 08:08: VM rec'd from Laurel @ [facility]. Confirmed that case was rec'd 04/06/25. Laurel states that they have until 04/16/25 to review. SW updated. Arelis Ngo DC Planning Asst. Original Note: Discharge Planning VM left for [facility] dept. Arelis Ngo DC Planning Asst.
[2025-04-09 20:54] VITALS: BP 100/50; PULSE 74; RESP 18; TEMP 35.9; O2SAT 100
[2025-04-10 03:33] VITALS: BMI 30.8
[2025-04-10 04:18] VITALS: BP 123/55; PULSE 75; RESP 18; TEMP 35.8; O2SAT 99
[2025-04-10 06:25] LABS: Hematocrit 28.0 % (37-47); Hemoglobin 9.1 g/dL (12.0-15.0); Immature Granulocytes Count 0.060 X10^3/uL (0.0-0.0); Mean Corp Hgb Conc 32.5 g/dL (32-36); Mean Corpuscular Volume 83.6 fL (81-99); Mean Platelet Vol. 9.6 fl (6.2-12.0); NRBC Flagged by Analyzer 0 % (0-5); Platelet Count 236 K/mm3 (150-450); RBC Distribution Width CV 13.8 % (11.6-14.6); RBC Distribution Width SD 41.3 fl (35.1-43.9); Red Blood Count 3.35 M/mm3 (4.2-5.4); White Blood Count 10.0 K/mm3 (4.4-11.0)
[2025-04-10 06:52] LABS: Anion Gap 10 (5-15); BUN 30 mg/dL (4-19); BUN/Creat Ratio 23.3 RATIO (10-20); Calcium,Total 8.5 mg/dL (7.6-11.0); Carbon Dioxide 21.9 mmol/L (21.0-32.0); Chloride 104 mmol/L (98-108); Estimated Creatinine Clearance 56.04 ml/min (50-250); Glucose 192 mg/dL (70-99); Potassium 3.9 mmol/L (3.3-5.1)
[2025-04-10] MEDS: SACUBITRIL/VALSARTAN 24/26 MG TABLET 1 EACH PO ×2 (09:13→20:53)
[2025-04-10] MEDS: APIXABAN 5 MG TABLET 10 MG PO ×2 (09:13→20:51)
[2025-04-10] MEDS: Insulin Glargine-YFGN 100 UNIT/ML Pen 10 UNIT SC (09:14)
[2025-04-10 09:57] VITALS: O2SAT 97
[2025-04-10 10:00] VITALS: BP 126/68; PULSE 82; RESP 15; TEMP 36.7; O2SAT 98
--- NOTE | 2025-04-10 12:23 | CASEMGMT ---
Discharge Planning Updates sent to [facility]. Precert remains pending. Arelis Ngo DC Planning Asst.
--- NOTE | 2025-04-10 13:35 | PN_ITS ---
Subjective Subjective Patient seen and examined with her nurse by her bedside. She complained of nausea, which is chronic. Review of systems is otherwise negative. She has remained hemodynamically stable. She is on room air. She is awaiting placement. Objective Data Objective Data Vital Signs: Vital Signs Temp Pulse Resp BP Pulse Ox O2 Del Method O2 Flow Rate 98.0 F 82 15 126/68 H 98 Room Air 1 04/10/25 10:00 04/10/25 10:00 04/10/25 10:00 04/10/25 10:00 04/10/25 10:00 04/10/25 13:32 04/06/25 14:22 FiO2 30 04/06/25 14:22 Oxygen Flow Rate (L/min) 1 Oxygen Delivery Method Room Air Weight: 191 lb 12.835 oz Body Mass Index (BMI) 30.8 Intake & Output: Intake and Output for Last 24 Hours 04/08/25 04/09/25 04/10/25 23:59 23:59 23:59 Intake Total 1590 / 1590 1120 / 1120 360 / 360 Output Total 2350 / 2350 1550 / 1550 850 / 850 Balance -760 / -760 -430 / -430 -490 / -490 Lab / Micro Data 04/10/25 06:00 04/10/25 06:00 Labs: Laboratory Results - last 24 hr 04/09/25 16:32: POC Glucose 243 H 04/09/25 21:02: POC Glucose 200 H 04/10/25 06:00: WBC 10.0, RBC 3.35 L, Hgb 9.1 L, Hct 28.0 L, MCV 83.6, MCH 27.2, MCHC 32.5, RDW Std Deviation 41.3, RDW Coeff of Spencer 13.8, Plt Count 236, MPV 9.6, Immature Gran % (Auto) 0.600, Neut % (Auto) 73.1 H, Lymph % (Auto) 17.2 L, Kinney % (Auto) 7.0, Eos % (Auto) 1.4, Baso % (Auto) 0.7, Absolute Neuts (auto) 7.3, Absolute Lymphs (auto) 1.72, Nucleated RBC % 0, Sodium 136, Potassium 3.9, Chloride 104, Carbon Dioxide 21.9, Anion Gap 10, BUN 30 H, Creatinine 1.29 H, Estim Creat Clear Calc 56.04, Est GFR (MDRD) Non-Af 50 L, BUN/Creatinine Ratio 23.3 H, Glucose 192 H, Calcium 8.5 04/10/25 06:25: POC Glucose 210 H 04/10/25 11:24: POC Glucose 198 H Micro: Microbiology 03/30/25 11:20 Blood Culture (Wb) - Left Wrist Blood Culture - Final No growth in 5 days. 03/30/25 11:00 Blood Culture (Wb) - Chest Blood Culture - Final No growth in 5 days. 03/30/25 16:00 Sputum, Induced/Lukens Gram Stain - Final 03/30/25 16:00 Sputum, Induced/Lukens Respiratory Culture - Final Staphylococcus aureus 03/30/25 11:46 Urine, Catheterized Urine Culture - Final Culture exhibits no growth. 03/31/25 08:30 Nasal Secretion MRSA (PCR) - Final 03/30/25 11:46 Urine Catheter - Hathaway Legionella Antigen - Final 03/30/25 11:46 Urine Catheter - Hathaway Streptococcus pneumoniae Antigen (M - Final 03/30/25 10:41 Mucosa - Nose SARS-CoV-2, Influenza & RSV (PCR) - Final Rhythm Strip Rhythm Strip: Sinus Rhythm Rate: 80 Ectopy: None Physical Exam Const alert, oriented x3 and no apparent distress Constitutional Narrative: flat affect General Appearance: cooperative HEENT normocephalic, head/scalp atraumatic, moist oral mucous membranes and oropharynx normal Eyes EOMs intact bilaterally Neck supple and no JVD Lymph Lymphatic: no lymphedema noted Resp Resp Narrative: mildly diminished breath sounds bibasally, no wheezes or crackles. on room air. Cardio regular rate, regular rhythm, S1 normal heart sound, S2 normal heart sound and no murmurs GI normal to inspection, nondistended, normoactive bowel sounds, soft to palpation, non-tender and non-distended Extremity normal capillary refill, no clubbing, cyanosis or edema and no calf tenderness General Extremity: no tenderness to palpation of joints or extremities Skin General Skin Exam: no breakdown Neuro no focal motor deficits and no sensory deficits noted Motor Exam: general weakness Psych thought process normal and cooperative Mood & Affect: flat affect Assessment & Plan Assessment/Plan (1) Acute on chronic HFrEF (heart failure with reduced ejection fraction): (2) Oropharyngeal dysphagia: PLAN: Plan #Acute hypoxic respiratory failure due to bilateral PE, ac elizabeth HFrEF and pneumonia * Now weaned off of BiPAP. Had a protracted hospital course which required him to be intubated and admitted to the ICU. She was eventually extubated onto nasal cannula oxygen and is now on room air. * On Eliquis. Also on Lasix. * Titrate oxygen to maintain saturation above 90%. * #Acute bilateral PE * CT chest showed partially occlusive thrombus within the proximal right lower lobe pulmonary arteries and partly occlusive clot visible to the right upper lobe pulmonary vessels and nonocclusive clot visible in the left upper lobe proximal branch vessels with diffuse patchy interstitial and alveolar infiltrates with peripheral wedge-shaped consolidation with severe the bases. * Was initially on heparin drip but is now on Eliquis. * #Acute on chronic heart failure with reduced ejection fraction: * Has known EF of 20% with moderately enlarged left atrium, moderate mitral valve insufficiency and trivial pericardial effusion. * On Aldactone and furosemide. Cardiology on board. * also on carvedilol and entresto #Probable aspiration * Had modified barium swallow which showed soft tissue excretions on phrenoesophageal region. She had EGD after GI was consulted and EGD showed moderately severe erosive esophagitis with no bleeding and benign-appearing esophageal stenosis which was dilated as well as medium size hiatal hernia and chronic gastritis which was biopsied with no gross lesions in the entire examined duodenum. On pantoprazole. * #Sepsis due to pneumonia: Sputum cultures grew MRSA. 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 On Lantus. * Insulin sliding scale. Accu-Cheks ACHS. She did develop hypoglycemia during this admission. Lantus therefore decreased. * #Hyperlipidemia: On statin #History of peripheral artery disease: Had stents placed in the lower extremities about a year ago. On dual antiplatelet therapy and high intensity statin #Chronic hypotension: On midodrine but this was held on admission. Resume as needed #Chronic back pain due to chronic compression fractures: PT OT on board. On pain meds as needed. #Chronic anemia: Monitor hemoglobin and transfuse if hemoglobin is less than 7. #History of depression with anxiety: On escitalopram #Hypokalemia: Resolved #Vitamin D deficiency: On vitamin D supplementation #DVT prophylaxis: Not indicated as patient on Eliquis. Disposition: Awaiting placement pending pre-CERT. Charges/Coding Visit Charges Inpatient E&M: 76630 Subs Hosp L2
[2025-04-10 14:44] VITALS: BMI 30.8
--- NOTE | 2025-04-10 15:46 | CASEMGMT ---
Social Work Patient will DC to [facility] if approved. Precert is pending. ?7000 needs completed prior to discharge. ?Cannot do PASRR as pt has a seizure diagnosis. transport form started, green sheet in the chart. NARCISA Miranda
[2025-04-10 16:00] VITALS: BP 114/69; PULSE 82; RESP 16; TEMP 36.1; O2SAT 98
--- NOTE | 2025-04-10 17:06 | CASEMGMT ---
CM Director: Call placed to Harshil JACOBS to discuss delay in prior authorization receipt for this patients transfer to SNF level of care at [facility]. Confidential VM message left requesting a return call at approximately [phone] with a return call received from Laurel at [phone]. Per Laurel, the review nurse is awaiting the PASRR or 7000 to finish process the auth. Stated it could be uploaded to the portal with the case or faxed to [phone]. Per Laurel, once available the case will likely be reviewed on Sunday although the nurse do check on the weekends on some cases. Will request weekend staff to facilitate 7000 submission as able. Adam Arroyo RN AC
[2025-04-10 20:47] VITALS: BP 117/66; PULSE 79; RESP 18; TEMP 36.6; O2SAT 98
[2025-04-11 03:15] VITALS: BP 121/63; PULSE 76; RESP 16; TEMP 36.4; O2SAT 95
[2025-04-11 03:37] VITALS: PULSE 78
[2025-04-11 05:40] LABS: Hematocrit 28.6 % (37-47); Hemoglobin 9.2 g/dL (12.0-15.0); Immature Granulocytes Count 0.040 X10^3/uL (0.0-0.0); Mean Corp Hgb Conc 32.2 g/dL (32-36); Mean Corpuscular Volume 84.1 fL (81-99); Mean Platelet Vol. 10.3 fl (6.2-12.0); NRBC Flagged by Analyzer 0 % (0-5); Platelet Count 234 K/mm3 (150-450); RBC Distribution Width CV 13.9 % (11.6-14.6); RBC Distribution Width SD 42.5 fl (35.1-43.9); Red Blood Count 3.40 M/mm3 (4.2-5.4); White Blood Count 9.8 K/mm3 (4.4-11.0)
[2025-04-11 05:53] VITALS: BMI 30.4
[2025-04-11 06:17] LABS: Anion Gap 11 (5-15); BUN 27 mg/dL (4-19); BUN/Creat Ratio 22.8 RATIO (10-20); Calcium,Total 8.7 mg/dL (7.6-11.0); Carbon Dioxide 22.3 mmol/L (21.0-32.0); Chloride 103 mmol/L (98-108); Estimated Creatinine Clearance 60.95 ml/min (50-250); Glucose 157 mg/dL (70-99); Potassium 3.8 mmol/L (3.3-5.1)
--- NOTE | 2025-04-11 08:00 | CASEMGMT ---
Addendum entered by Irma Jean Baptiste 04/11/25 09:19: KIKE faxed the 7000 to [facility]. Original Note: Social Work As per director of care management [facility] is requesting the 7000 for hospital exemptions be completed prior to approval. KIKE requested the physician to complete a transfer to extended care and the physician responded she would. NARCISA Miranda
--- NOTE | 2025-04-11 08:29 | PCM.TXEXTCAR ---
Diet Diet Order/Speech Therapy: INPATIENT Hospital Diet / Speech Therapy Order(s) 04/07/25 05:41 Diet: Carbohydrate Controlled Food consistency:: Soft & Bite Sized Liquid Consistency:: Regular/Thin Dietary Modifications:: Cardiac / Heart Healthy Speech Therapy Comments: Distant sup, ok for pt preference food: chips. Routine Orders/Code Status Enema Type: Fleetz Enema Frequency: Daily PRN Suppository Type: Dulcolax 10mg Suppository Frequency: Daily PRN DC O2, CPAP, BIPAP needs Home O2 Discharge instructions: No Wound(s) Coccyx: Wound Type: Pressure Injury Therapies Weight Bearing: Weight bearing as tolerated Physical Therapy: Eval and Treat Occupational Therapy: Eval and Treat Problem/Diagnosis (1) Acute on chronic HFrEF (heart failure with reduced ejection fraction): Status: Chronic Code(s): I50.23 - Acute on chronic systolic (congestive) heart failure (2) Oropharyngeal dysphagia: Status: Acute Code(s): R13.12 - Dysphagia, oropharyngeal phase Plan #Acute hypoxic respiratory failure due to bilateral PE, ac elizabeth HFrEF and pneumonia Now weaned off of BiPAP. Had a protracted hospital course which required him to be intubated and admitted to the ICU. She was eventually extubated onto nasal cannula oxygen and is now on room air. On Eliquis. Also on Lasix. Titrate oxygen to maintain saturation above 90%. #Acute bilateral PE CT chest showed partially occlusive thrombus within the proximal right lower lobe pulmonary arteries and partly occlusive clot visible to the right upper lobe pulmonary vessels and nonocclusive clot visible in the left upper lobe proximal branch vessels with diffuse patchy interstitial and alveolar infiltrates with peripheral wedge-shaped consolidation with severe the bases. Was initially on heparin drip but is now on Eliquis. #Acute on chronic heart failure with reduced ejection fraction: Has known EF of 20% with moderately enlarged left atrium, moderate mitral valve insufficiency and trivial pericardial effusion. On Aldactone and furosemide. Cardiology on board. also on carvedilol and entresto #Probable aspiration Had modified barium swallow which showed soft tissue excretions on phrenoesophageal region. She had EGD after GI was consulted and EGD showed moderately severe erosive esophagitis with no bleeding and benign-appearing esophageal stenosis which was dilated as well as medium size hiatal hernia and chronic gastritis which was biopsied with no gross lesions in the entire examined duodenum. On pantoprazole. #Sepsis due to pneumonia: Sputum cultures grew MRSA. 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 On Lantus. Insulin sliding scale. Accu-Cheks ACHS. She did develop hypoglycemia during this admission. Lantus therefore decreased. #Hyperlipidemia: On statin #History of peripheral artery disease: Had stents placed in the lower extremities about a year ago. On dual antiplatelet therapy and high intensity statin #Chronic hypotension: On midodrine but this was held on admission. Resume as needed #Chronic back pain due to chronic compression fractures: PT OT on board. On pain meds as needed. #Chronic anemia: Monitor hemoglobin and transfuse if hemoglobin is less than 7. #History of depression with anxiety: On escitalopram #Hypokalemia: Resolved #Vitamin D deficiency: On vitamin D supplementation #DVT prophylaxis: Not indicated as patient on Eliquis. Disposition: Awaiting placement pending pre-CERT. Allergies/Procedures Done in Hospital Allergies latex Allergy (Verified 01/29/25 15:41) Hives Procedures: None Type of Care/Length of Stay Estimated LOS: Convalescent Care Less Than 30 days Type of Care Needed: Skilled Rehab Potential: Fair Prognosis: Fair Additional Orders/Day of Discharge Day of Discharge: 04/11/25 Dietary and Speech Recommendations Dietitian Recommendations/Changes: Continue cardiac; consistent carbohydrate per [employer] recommendations. Will monitor weight trends. At time of discharge recommend advanced diet as tolerated to cardiac; consistent carbohydrate per [employer] recommendations. Discharge Plan Admission Admit Date/Time: 03/30/25 13:57 Primary Reason for Your Visit: acute respiratory failure Attending Provider: Talisha Boykin Primary Care Provider: Zohreh Pratt [facility] Consulting Providers: Jonas Justin; Morro Aaron; Abdirizak Fajardo; Jeremy Alexander; Jeevan De Jesus; Evelyne Salvador; Griselda Huynh; Bina Saldana; Dominguez Mcneil Instructions Patient Instructions: Coping with Heart Failure Discharge Orders/Prescriptions Prescriptions: New furosemide 40 mg Tablet 40 mg PO DAILY Qty: 30 2RF carvedilol 6.25 mg Tablet 6.25 mg PO BIDCM Qty: 60 2RF spironolactone 50 mg Tablet 50 mg PO DAILY Qty: 30 1RF Eliquis 5 mg Tablet 5 mg PO BID Qty: 60 2RF Jardiance 10 mg Tablet 10 mg PO DAILY Qty: 30 2RF Continued pantoprazole 40 mg tablet,delayed release (DR/EC) 40 mg PO DAILY clopidogrel 75 mg Tablet 75 mg PO DAILY Qty: 30 0RF Patient Comments: patient stated pretty sure I still take that sacubitril-valsartan [Entresto] 24-26 mg Tablet 1 tab PO BID 30 Days Qty: 60 0RF atorvastatin 80 mg tablet 80 mg PO QHS gabapentin 300 mg Capsule 300 mg PO TID tizanidine 4 mg tablet 4 mg PO 3XD midodrine 2.5 mg tablet 2.5 mg PO DAILY escitalopram oxalate 20 mg tablet 20 mg PO DAILY sennosides-docusate sodium [Stimulant Laxative Plus] 8.6-50 mg Tablet 2 tab PO BID PRN (Reason: constipation) polyethylene glycol 3350 [Miralax] 17 gram/dose powder 17 g PO BID PRN (Reason: constipation) acetaminophen 500 mg Tablet 1,000 mg PO Q8 Qty: 0 0RF sennosides-docusate sodium [Stimulant Laxative Plus] 8.6-50 mg Tablet 2 tab PO BID Qty: 60 0RF metoclopramide HCl [Reglan] 10 mg tablet 10 mg PO Q6H PRN (Reason: nausea and vomiting) 5 Days Qty: 20 0RF cholecalciferol (vitamin D3) 1,250 mcg (50,000 unit) tablet 1,250 mcg PO WE DIC 2%/RINKU 6%/LIDOC 2% IN saltsable cream 1 - 2 pump subdermal Q6H PRN (Reason: FOR FEET) ergocalciferol (vitamin D2) [Vitamin D2] 1,250 mcg (50,000 unit) Capsule 1,250 mcg PO We@1000 Qty: 0 0RF nystatin 100,000 unit/gram Powder 1 applic topical TID Qty: 0 0RF Protocol: *Topical Application Instructions APPLICATION INSTRUCTIONS: UNDER alok BREAST oxycodone 5 mg Tablet 5 mg PO Q4H PRN PRN (Reason: pain 4-10) 3 Days Qty: 12 0RF insulin glargine [Lantus Solostar U-100 Insulin] 100 unit/mL (3 mL) insulin pen subcut Patient Comments: PT STATES USES LANTUS ON A SLIDING SCALE ONLY BUT UNSURE OF WHAT THAT IS insulin lispro [Humalog KwikPen Insulin] 100 unit/mL insulin pen 27 unit subcut DAILY Patient Comments: 20U IN THE AM AND 27U PM PER PT insulin lispro [Humalog KwikPen Insulin] 100 unit/mL Insulin Pen 20 unit subcut DAILY Protocol: 5. Sliding Scale Insulin High Dosing Condition: 150-209 mg/dl = 3 units Condition: 210-259 mg/dl = 6 units Condition: 260-324 mg/dl = 9 units Condition: 325-374 mg/dl = 12 units Condition: 375-409 mg/dl = 14 units Condition: 410-449 mg/dl = 16 units Condition: Greater than 449 call physician Protocol Text: Suggested for: - Patients on Total Daily Insulin Dose of 81-120 units - Very insulin resistant patients HIGH DOSING ALGORITHM Patient Comments: 20U IN THE AM AND 27U PM PER PT OXYGEN - Supplemental ([facility] INFORMATIONAL USE ONLY) Patient Comments: 2 LPM @ HS Rx Instructions: As Directed Discontinued aspirin 81 mg Capsule 81 mg PO DAILY furosemide 20 mg tablet 20 mg PO DAILY spironolactone 25 mg tablet 25 mg PO DAILY 30 Days Qty: 0 0RF Referrals / Follow Up: Alli Brito MD [Med Staff - Active Staff, Cardiology] - Within 1 Month Zohreh Pratt [employer] [Primary Care Provider, Family Practice] - Within 1 Week Disposition Disposition (needs filled in before D/C Order can be placed): Senior Living Facility
[2025-04-11 09:00] VITALS: BP 101/61; PULSE 79; RESP 16; TEMP 36.9; O2SAT 100
[2025-04-11] MEDS: SACUBITRIL/VALSARTAN 24/26 MG TABLET 1 EACH PO ×2 (09:22→21:56)
[2025-04-11] MEDS: APIXABAN 5 MG TABLET PO ×2 (09:22→21:56)
[2025-04-11] MEDS: Insulin Glargine-YFGN 100 UNIT/ML Pen 10 UNIT SC (09:23)
[2025-04-11] MEDS: Senna/Docusate Sodium 1 Tablet 2 TABLET PO (09:26)
--- NOTE | 2025-04-11 12:41 | PN_ITS ---
Subjective Subjective Patient seen and examined. She was complaining of back pain. She had no other active complaints. Review of systems otherwise negative. She is still awaiting placement. Objective Data Objective Data Vital Signs: Vital Signs Temp Pulse Resp BP Pulse Ox O2 Del Method O2 Flow Rate 98.5 F 79 16 101/61 100 Room Air 1 04/11/25 09:00 04/11/25 09:00 04/11/25 09:00 04/11/25 09:00 04/11/25 09:00 04/11/25 09:00 04/06/25 14:22 FiO2 30 04/06/25 14:22 Oxygen Flow Rate (L/min) 1 Oxygen Delivery Method Room Air Weight: 189 lb 13.088 oz Body Mass Index (BMI) 30.4 Intake & Output: Intake and Output for Last 24 Hours 04/09/25 04/10/25 04/11/25 23:59 23:59 23:59 Intake Total 1120 / 1120 840 / 840 545.5 / 545.5 Output Total 1550 / 1550 1300 / 1300 200 / 200 Balance -430 / -430 -460 / -460 345.5 / 345.5 Lab / Micro Data 04/11/25 04:40 04/11/25 04:40 Labs: Laboratory Results - last 24 hr 04/10/25 16:43: POC Glucose 224 H 04/10/25 20:49: POC Glucose 129 H 04/11/25 04:40: WBC 9.8, RBC 3.40 L, Hgb 9.2 L, Hct 28.6 L, MCV 84.1, MCH 27.1, MCHC 32.2, RDW Std Deviation 42.5, RDW Coeff of Spencer 13.9, Plt Count 234, MPV 10.3, Immature Gran % (Auto) 0.400, Neut % (Auto) 74.2 H, Lymph % (Auto) 17.4 L, Twiggs % (Auto) 6.2, Eos % (Auto) 1.2, Baso % (Auto) 0.6, Absolute Neuts (auto) 7.2, Absolute Lymphs (auto) 1.70, Nucleated RBC % 0, Sodium 136, Potassium 3.8, Chloride 103, Carbon Dioxide 22.3, Anion Gap 11, BUN 27 H, Creatinine 1.18, Estim Creat Clear Calc 60.95, Est GFR (MDRD) Non-Af 55 L, BUN/Creatinine Ratio 22.8 H, Glucose 157 H, Calcium 8.7 04/11/25 06:09: POC Glucose 171 H Micro: Microbiology 03/30/25 11:20 Blood Culture (Wb) - Left Wrist Blood Culture - Final No growth in 5 days. 03/30/25 11:00 Blood Culture (Wb) - Chest Blood Culture - Final No growth in 5 days. 03/30/25 16:00 Sputum, Induced/Lukens Gram Stain - Final 03/30/25 16:00 Sputum, Induced/Lukens Respiratory Culture - Final Staphylococcus aureus 03/30/25 11:46 Urine, Catheterized Urine Culture - Final Culture exhibits no growth. 03/31/25 08:30 Nasal Secretion MRSA (PCR) - Final 03/30/25 11:46 Urine Catheter - Hathaway Legionella Antigen - Final 03/30/25 11:46 Urine Catheter - Hathaway Streptococcus pneumoniae Antigen (M - Final 03/30/25 10:41 Mucosa - Nose SARS-CoV-2, Influenza & RSV (PCR) - Final Rhythm Strip Rhythm Strip: Sinus Rhythm Rate: 80 Ectopy: None Physical Exam Const alert and oriented x3 Constitutional Narrative: tearful due to back pain General Appearance: cooperative HEENT normocephalic, head/scalp atraumatic, hearing grossly normal bilaterally, moist oral mucous membranes and oropharynx normal Eyes PERRL, EOMs intact bilaterally and conjunctivae normal Neck full ROM, supple and no JVD Lymph Lymphatic: no lymphedema noted Chest inspection of chest normal Resp Resp Narrative: mildly diminished breath sounds bibasally, no wheezes or crackles. on room air. Cardio regular rate, regular rhythm, S1 normal heart sound, S2 normal heart sound, no murmurs and peripheral pulses 2+ throughout GI normal to inspection, nondistended, normoactive bowel sounds, soft to palpation, non-tender and non-distended Back/Spine normal ROM Extremity normal capillary refill, no clubbing, cyanosis or edema and no calf tenderness General Extremity: no tenderness to palpation of joints or extremities Skin no rashes or lesions noted General Skin Exam: no breakdown Neuro moves all extremities, no focal motor deficits and no sensory deficits noted Motor Exam: general weakness Psych mental status grossly normal, thought process normal and cooperative Mood & Affect: anxious and flat affect Assessment & Plan Assessment/Plan (1) Acute on chronic HFrEF (heart failure with reduced ejection fraction): (2) Oropharyngeal dysphagia: PLAN: Plan #Acute hypoxic respiratory failure due to bilateral PE, ac circle HFrEF and pneumonia * Now weaned off of BiPAP. Had a protracted hospital course which required him to be intubated and admitted to the ICU. She was eventually extubated onto nasal cannula oxygen and is now on room air. * On Eliquis. Also on Lasix. * Titrate oxygen to maintain saturation above 90%. * #Acute bilateral PE * CT chest showed partially occlusive thrombus within the proximal right lower lobe pulmonary arteries and partly occlusive clot visible to the right upper lobe pulmonary vessels and nonocclusive clot visible in the left upper lobe proximal branch vessels with diffuse patchy interstitial and alveolar infiltrates with peripheral wedge-shaped consolidation with severe the bases. * Was initially on heparin drip but is now on Eliquis. * #Acute on chronic heart failure with reduced ejection fraction: * Has known EF of 20% with moderately enlarged left atrium, moderate mitral valve insufficiency and trivial pericardial effusion. * On Aldactone and furosemide. Cardiology on board. * also on carvedilol and entresto #Probable aspiration * Had modified barium swallow which showed soft tissue excretions on phrenoesophageal region. She had EGD after GI was consulted and EGD showed moderately severe erosive esophagitis with no bleeding and benign-appearing esophageal stenosis which was dilated as well as medium size hiatal hernia and chronic gastritis which was biopsied with no gross lesions in the entire examined duodenum. On pantoprazole. * #Sepsis due to pneumonia: Sputum cultures grew MRSA. 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 On Lantus. * Insulin sliding scale. Accu-Cheks ACHS. She did develop hypoglycemia during this admission. Lantus therefore decreased. * #Hyperlipidemia: On statin #History of peripheral artery disease: Had stents placed in the lower extremities about a year ago. On dual antiplatelet therapy and high intensity statin #Chronic hypotension: On midodrine but this was held on admission. Resume as needed #Chronic back pain due to chronic compression fractures: PT OT on board. On pain meds as needed. #Chronic anemia: Monitor hemoglobin and transfuse if hemoglobin is less than 7. #History of depression with anxiety: On escitalopram #Hypokalemia: Resolved #Vitamin D deficiency: On vitamin D supplementation #DVT prophylaxis: Not indicated as patient on Eliquis. Disposition: Awaiting placement pending pre-CERT. Charges/Coding Visit Charges Inpatient E&M: 21927 Subs Hosp L2
[2025-04-11 15:00] VITALS: BP 109/54; PULSE 77; RESP 16; TEMP 36.8; O2SAT 99
[2025-04-11 17:00] VITALS: BP 107/49; PULSE 79; RESP 16; TEMP 37.1; O2SAT 99
[2025-04-11 21:50] VITALS: BP 123/69; PULSE 79; RESP 16; TEMP 36.8; O2SAT 100
[2025-04-12 03:17] VITALS: BP 119/63; PULSE 78; RESP 16; TEMP 36.3; O2SAT 100
[2025-04-12 06:54] LABS: Hematocrit 27.7 % (37-47); Hemoglobin 9.4 g/dL (12.0-15.0); Immature Granulocytes Count 0.030 X10^3/uL (0.0-0.0); Mean Corp Hgb Conc 33.9 g/dL (32-36); Mean Corpuscular Volume 83.9 fL (81-99); Mean Platelet Vol. 9.7 fl (6.2-12.0); NRBC Flagged by Analyzer 0 % (0-5); Platelet Count 237 K/mm3 (150-450); RBC Distribution Width CV 13.5 % (11.6-14.6); RBC Distribution Width SD 41.2 fl (35.1-43.9); Red Blood Count 3.30 M/mm3 (4.2-5.4); White Blood Count 9.6 K/mm3 (4.4-11.0)
[2025-04-12 07:21] LABS: Anion Gap 11 (5-15); BUN 29 mg/dL (4-19); BUN/Creat Ratio 24.0 RATIO (10-20); Calcium,Total 8.9 mg/dL (7.6-11.0); Carbon Dioxide 21.1 mmol/L (21.0-32.0); Chloride 101 mmol/L (98-108); Estimated Creatinine Clearance 59.44 ml/min (50-250); Glucose 284 mg/dL (70-99); Potassium 4.0 mmol/L (3.3-5.1)
[2025-04-12 09:33] VITALS: BP 134/58; PULSE 80; RESP 16; TEMP 36.9; O2SAT 100
[2025-04-12] MEDS: Senna/Docusate Sodium 1 Tablet 2 TABLET PO (09:36)
[2025-04-12] MEDS: SACUBITRIL/VALSARTAN 24/26 MG TABLET 1 EACH PO ×2 (09:36→20:56)
[2025-04-12] MEDS: APIXABAN 5 MG TABLET PO ×2 (09:36→20:56)
[2025-04-12] MEDS: Insulin Glargine-YFGN 100 UNIT/ML Pen 10 UNIT SC (09:37)
--- NOTE | 2025-04-12 11:51 | PN_ITS ---
Subjective Subjective Patient seen and examined with her nurse by her bedside. She complained of feeling weak and having chronic back pain. Review of systems otherwise negative. She is still awaiting placement. She has remained hemodynamically stable. Objective Data Objective Data Vital Signs: Vital Signs Temp Pulse Resp BP Pulse Ox O2 Del Method O2 Flow Rate 98.5 F 80 16 134/58 H 100 Room Air 1 04/12/25 09:33 04/12/25 09:33 04/12/25 09:33 04/12/25 09:33 04/12/25 09:33 04/12/25 09:33 04/06/25 14:22 FiO2 30 04/06/25 14:22 Oxygen Flow Rate (L/min) 1 Oxygen Delivery Method Room Air Weight: 189 lb 13.088 oz Body Mass Index (BMI) 30.4 Intake & Output: Intake and Output for Last 24 Hours 04/10/25 04/11/25 04/12/25 23:59 23:59 23:59 Intake Total 840 / 840 545.5 / 545.5 Output Total 1300 / 1300 200 / 200 Balance -460 / -460 345.5 / 345.5 Lab / Micro Data 04/12/25 06:06 04/12/25 06:06 Labs: Laboratory Results - last 24 hr 04/11/25 12:25: POC Glucose 232 H 04/11/25 17:22: POC Glucose 250 H 04/11/25 22:01: POC Glucose 184 H 04/12/25 06:06: WBC 9.6, RBC 3.30 L, Hgb 9.4 L, Hct 27.7 L, MCV 83.9, MCH 28.5, MCHC 33.9 D, RDW Std Deviation 41.2, RDW Coeff of Spencer 13.5, Plt Count 237, MPV 9.7, Immature Gran % (Auto) 0.300, Neut % (Auto) 75.5 H, Lymph % (Auto) 16.1 L, Mckean % (Auto) 6.3, Eos % (Auto) 1.3, Baso % (Auto) 0.5, Absolute Neuts (auto) 7.3, Absolute Lymphs (auto) 1.55, Nucleated RBC % 0, Sodium 134, Potassium 4.0, Chloride 101, Carbon Dioxide 21.1, Anion Gap 11, BUN 29 H, Creatinine 1.21 H, Estim Creat Clear Calc 59.44, Est GFR (MDRD) Non-Af 54 L, BUN/Creatinine Ratio 24.0 H, Glucose 284 H, Calcium 8.9 04/12/25 07:03: POC Glucose 219 H 04/12/25 11:22: POC Glucose 207 H Micro: Microbiology 03/30/25 11:20 Blood Culture (Wb) - Left Wrist Blood Culture - Final No growth in 5 days. 03/30/25 11:00 Blood Culture (Wb) - Chest Blood Culture - Final No growth in 5 days. 03/30/25 16:00 Sputum, Induced/Lukens Gram Stain - Final 03/30/25 16:00 Sputum, Induced/Lukens Respiratory Culture - Final Staphylococcus aureus 03/30/25 11:46 Urine, Catheterized Urine Culture - Final Culture exhibits no growth. 03/31/25 08:30 Nasal Secretion MRSA (PCR) - Final 03/30/25 11:46 Urine Catheter - Hathaway Legionella Antigen - Final 03/30/25 11:46 Urine Catheter - Hathaway Streptococcus pneumoniae Antigen (M - Final 03/30/25 10:41 Mucosa - Nose SARS-CoV-2, Influenza & RSV (PCR) - Final Rhythm Strip Rhythm Strip: Sinus Rhythm Rate: 80 Ectopy: None Physical Exam Const alert and oriented x3 Constitutional Narrative: tearful due to back pain General Appearance: cooperative and comfortable HEENT normocephalic, head/scalp atraumatic, hearing grossly normal bilaterally, nasal mucous membranes and turbinates normal and moist oral mucous membranes Eyes EOMs intact bilaterally and conjunctivae normal Neck full ROM, supple and no JVD Lymph Lymphatic: no lymphedema noted Chest inspection of chest normal Resp normal respiratory effort and no use of accessory muscles Resp Narrative: mildly diminished breath sounds bibasally, no wheezes or crackles. on room air. Cardio regular rhythm, S1 normal heart sound, S2 normal heart sound, no murmurs and peripheral pulses 2+ throughout Cardio Narrative: Tachycardic, regular rhythm. GI normal to inspection, nondistended, normoactive bowel sounds, soft to palpation, non-tender and non-distended Back/Spine normal ROM Extremity normal capillary refill, no clubbing, cyanosis or edema and no calf tenderness General Extremity: no tenderness to palpation of joints or extremities Skin no rashes or lesions noted General Skin Exam: no breakdown Neuro moves all extremities, no focal motor deficits and no sensory deficits noted Motor Exam: general weakness Psych mental status grossly normal, thought process normal and cooperative Mood & Affect: anxious Assessment & Plan Assessment/Plan (1) Acute on chronic HFrEF (heart failure with reduced ejection fraction): (2) Oropharyngeal dysphagia: PLAN: Plan #Acute hypoxic respiratory failure due to bilateral PE, ac elizabeth HFrEF and pneumonia * Now weaned off of BiPAP. Had a protracted hospital course which required him to be intubated and admitted to the ICU. She was eventually extubated onto nasal cannula oxygen and is now on room air. * On Eliquis. Also on Lasix. * Titrate oxygen to maintain saturation above 90%. * #Acute bilateral PE * CT chest showed partially occlusive thrombus within the proximal right lower lobe pulmonary arteries and partly occlusive clot visible to the right upper lobe pulmonary vessels and nonocclusive clot visible in the left upper lobe proximal branch vessels with diffuse patchy interstitial and alveolar infiltrates with peripheral wedge-shaped consolidation with severe the bases. * Was initially on heparin drip but is now on Eliquis. * #Acute on chronic heart failure with reduced ejection fraction: * Has known EF of 20% with moderately enlarged left atrium, moderate mitral valve insufficiency and trivial pericardial effusion. * On Aldactone and furosemide. Cardiology on board. * also on carvedilol and entresto #Probable aspiration * Had modified barium swallow which showed soft tissue excretions on phrenoesophageal region. She had EGD after GI was consulted and EGD showed moderately severe erosive esophagitis with no bleeding and benign-appearing esophageal stenosis which was dilated as well as medium size hiatal hernia and chronic gastritis which was biopsied with no gross lesions in the entire examined duodenum. On pantoprazole. * #Sepsis due to pneumonia: Sputum cultures grew MRSA. 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 On Lantus. * Insulin sliding scale. Accu-Cheks ACHS. She did develop hypoglycemia during this admission. Lantus therefore decreased. * #Hyperlipidemia: On statin #History of peripheral artery disease: Had stents placed in the lower extremities about a year ago. On dual antiplatelet therapy and high intensity statin #Chronic hypotension: On midodrine but this was held on admission. Resume as needed #Chronic back pain due to chronic compression fractures: PT OT on board. On pain meds as needed. #Chronic anemia: Monitor hemoglobin and transfuse if hemoglobin is less than 7. #History of depression with anxiety: On escitalopram #Hypokalemia: Resolved #Vitamin D deficiency: On vitamin D supplementation #DVT prophylaxis: Not indicated as patient on Eliquis. Disposition: Awaiting placement pending pre-CERT. Charges/Coding Visit Charges Inpatient E&M: 96855 Subs Hosp L2
[2025-04-12 16:22] VITALS: BP 119/57; PULSE 79; RESP 18; TEMP 36.8; O2SAT 98
[2025-04-12 20:47] VITALS: BP 129/68; PULSE 83; RESP 18; TEMP 36.7; O2SAT 98
[2025-04-13 02:43] VITALS: BP 119/67; PULSE 76; RESP 18; TEMP 36.8; O2SAT 100
[2025-04-13 05:22] VITALS: BMI 30.9
[2025-04-13 08:48] VITALS: BP 129/73; PULSE 77; RESP 18; TEMP 36.1; O2SAT 98
[2025-04-13] MEDS: Insulin Glargine-YFGN 100 UNIT/ML Pen 10 UNIT SC (08:54)
[2025-04-13] MEDS: APIXABAN 5 MG TABLET PO ×2 (08:56→22:24)
[2025-04-13] MEDS: SACUBITRIL/VALSARTAN 24/26 MG TABLET 1 EACH PO ×2 (08:57→22:24)
--- NOTE | 2025-04-13 10:17 | CASEMGMT ---
Social Work Patient was denied by her insurance company to DC to [facility] for SNF. Patient wanted to file an appeal. SW provided the patient with the form to sign and SW faxed it back to [facility]. Plan: SW will wait for the decision from the insurance company. NARCISA Miranda
--- NOTE | 2025-04-13 10:24 | PN_ITS ---
Subjective Subjective Patient seen and examined. She still complaining of nausea and back pain. These are chronic issues. Review of systems otherwise negative. She has remained hemodynamically stable. She is still awaiting placement. Objective Data Objective Data Vital Signs: Vital Signs Temp Pulse Resp BP Pulse Ox O2 Del Method O2 Flow Rate 97.0 F L 77 18 129/73 H 98 Room Air 1 04/13/25 08:48 04/13/25 08:48 04/13/25 08:48 04/13/25 08:48 04/13/25 08:48 04/13/25 08:48 04/06/25 14:22 FiO2 30 04/06/25 14:22 Oxygen Flow Rate (L/min) 1 Oxygen Delivery Method Room Air Weight: 192 lb 3.889 oz Body Mass Index (BMI) 30.9 Intake & Output: Intake and Output for Last 24 Hours 04/11/25 04/12/25 04/13/25 23:59 23:59 23:59 Intake Total 545.5 / 545.5 Output Total 200 / 200 Balance 345.5 / 345.5 Lab / Micro Data 04/12/25 06:06 04/12/25 06:06 Labs: Laboratory Results - last 24 hr 04/12/25 11:22: POC Glucose 207 H 04/12/25 16:24: POC Glucose 237 H 04/12/25 20:53: POC Glucose 197 H 04/13/25 06:19: POC Glucose 217 H Micro: Microbiology 03/30/25 11:20 Blood Culture (Wb) - Left Wrist Blood Culture - Final No growth in 5 days. 03/30/25 11:00 Blood Culture (Wb) - Chest Blood Culture - Final No growth in 5 days. 03/30/25 16:00 Sputum, Induced/Lukens Gram Stain - Final 03/30/25 16:00 Sputum, Induced/Lukens Respiratory Culture - Final Staphylococcus aureus 03/30/25 11:46 Urine, Catheterized Urine Culture - Final Culture exhibits no growth. 03/31/25 08:30 Nasal Secretion MRSA (PCR) - Final 03/30/25 11:46 Urine Catheter - Hathaway Legionella Antigen - Final 03/30/25 11:46 Urine Catheter - Hathaway Streptococcus pneumoniae Antigen (M - Final 03/30/25 10:41 Mucosa - Nose SARS-CoV-2, Influenza & RSV (PCR) - Final Rhythm Strip Rhythm Strip: Sinus Rhythm Rate: 80 Ectopy: None Physical Exam Const alert, oriented x3 and no apparent distress Constitutional Narrative: tearful due to back pain General Appearance: cooperative and comfortable HEENT normocephalic, head/scalp atraumatic, hearing grossly normal bilaterally, moist oral mucous membranes and oropharynx normal Eyes PERRL, EOMs intact bilaterally and conjunctivae normal Neck full ROM, supple and no JVD Lymph Lymphatic: no lymphedema noted Chest inspection of chest normal Resp normal respiratory effort and no use of accessory muscles Resp Narrative: mildly diminished breath sounds bibasally, no wheezes or crackles. on room air. Cardio regular rate, regular rhythm, S1 normal heart sound, S2 normal heart sound, no murmurs and peripheral pulses 2+ throughout GI normal to inspection, nondistended, normoactive bowel sounds, soft to palpation, non-tender and non-distended Back/Spine normal ROM Extremity normal capillary refill, no clubbing, cyanosis or edema and no calf tenderness General Extremity: no tenderness to palpation of joints or extremities Skin no rashes or lesions noted General Skin Exam: no breakdown Neuro moves all extremities, no focal motor deficits and no sensory deficits noted Motor Exam: general weakness Psych mental status grossly normal, thought process normal and cooperative Mood & Affect: anxious and flat affect Assessment & Plan Assessment/Plan (1) Acute on chronic HFrEF (heart failure with reduced ejection fraction): (2) Oropharyngeal dysphagia: PLAN: Plan #Acute hypoxic respiratory failure due to bilateral PE, ac elizabeth HFrEF and pneumonia * Now weaned off of BiPAP. Had a protracted hospital course which required him to be intubated and admitted to the ICU. She was eventually extubated onto nasal cannula oxygen and is now on room air. * On Eliquis. Also on Lasix. * Titrate oxygen to maintain saturation above 90%. * #Acute bilateral PE * CT chest showed partially occlusive thrombus within the proximal right lower lobe pulmonary arteries and partly occlusive clot visible to the right upper lobe pulmonary vessels and nonocclusive clot visible in the left upper lobe proximal branch vessels with diffuse patchy interstitial and alveolar infiltrates with peripheral wedge-shaped consolidation with severe the bases. * Was initially on heparin drip but is now on Eliquis. * #Acute on chronic heart failure with reduced ejection fraction: * Has known EF of 20% with moderately enlarged left atrium, moderate mitral valve insufficiency and trivial pericardial effusion. * On Aldactone and furosemide. Cardiology on board. * also on carvedilol and entresto #Probable aspiration * Had modified barium swallow which showed soft tissue excretions on phrenoesophageal region. She had EGD after GI was consulted and EGD showed moderately severe erosive esophagitis with no bleeding and benign-appearing esophageal stenosis which was dilated as well as medium size hiatal hernia and chronic gastritis which was biopsied with no gross lesions in the entire examined duodenum * . On pantoprazole. * #Sepsis due to pneumonia: Sputum cultures grew MRSA. Completed a course of antibiotics. 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 On Lantus. * Insulin sliding scale. Accu-Cheks ACHS. She did develop hypoglycemia during this admission. Lantus therefore decreased. * #Hyperlipidemia: On statin #History of peripheral artery disease: Had stents placed in the lower extremities about a year ago. On dual antiplatelet therapy and high intensity statin #Chronic hypotension: On midodrine but this was held on admission. Resume as needed #Chronic back pain due to chronic compression fractures: PT OT on board. On pain meds as needed. #Chronic anemia: Monitor hemoglobin and transfuse if hemoglobin is less than 7. #History of depression with anxiety: On escitalopram #Hypokalemia: Resolved #Vitamin D deficiency: On vitamin D supplementation #DVT prophylaxis: Not indicated as patient on Eliquis. Disposition: Awaiting placement pending pre-CERT. Charges/Coding Visit Charges Inpatient E&M: 46314 Subs Hosp L2
[2025-04-13 15:48] VITALS: BP 137/80; PULSE 70; RESP 18; TEMP 36.4; O2SAT 98
[2025-04-13 22:11] VITALS: BP 110/57; PULSE 78; RESP 16; TEMP 36.7; O2SAT 98
[2025-04-14 02:56] VITALS: BP 93/43; PULSE 77; RESP 16; TEMP 36.5; O2SAT 95
--- NOTE | 2025-04-14 09:32 | CASEMGMT ---
Discharge Planning Updates sent via [facility] to [facility]. Arelis Ngo DC Planning Asst.
[2025-04-14 09:45] VITALS: BP 113/64; PULSE 81; RESP 16; TEMP 36.7; O2SAT 100
[2025-04-14] MEDS: APIXABAN 5 MG TABLET PO ×2 (09:55→23:02)
[2025-04-14] MEDS: SACUBITRIL/VALSARTAN 24/26 MG TABLET 1 EACH PO ×2 (09:55→23:01)
[2025-04-14] MEDS: Insulin Glargine-YFGN 100 UNIT/ML Pen 10 UNIT SC (09:55)
--- NOTE | 2025-04-14 12:39 | PN_ITS ---
Subjective Subjective Patient seen and examined with her nurse by her bedside. She still complained of nausea and back pain. Previous labs otherwise negative. Her placement in SNF was denied by her insurance and so she is appealing. Objective Data Objective Data Vital Signs: Vital Signs Temp Pulse Resp BP Pulse Ox O2 Del Method O2 Flow Rate 98.0 F 81 16 113/64 100 Room Air 1 04/14/25 09:45 04/14/25 09:45 04/14/25 09:45 04/14/25 09:45 04/14/25 09:45 04/14/25 09:45 04/06/25 14:22 FiO2 30 04/06/25 14:22 Oxygen Flow Rate (L/min) 1 Oxygen Delivery Method Room Air Weight: 192 lb 3.889 oz Body Mass Index (BMI) 30.9 Intake & Output: Intake and Output for Last 24 Hours 04/12/25 04/13/25 04/14/25 23:59 23:59 23:59 Intake Total 800 / 800 100 / 100 Output Total Balance 800 / 799 99 / 99 Lab / Micro Data 04/12/25 06:06 04/12/25 06:06 Labs: Laboratory Results - last 24 hr 04/13/25 16:19: POC Glucose 308 H 04/13/25 22:16: POC Glucose 219 H 04/14/25 06:38: POC Glucose 184 H 04/14/25 09:54: POC Glucose 212 H Micro: Microbiology 03/30/25 11:20 Blood Culture (Wb) - Left Wrist Blood Culture - Final No growth in 5 days. 03/30/25 11:00 Blood Culture (Wb) - Chest Blood Culture - Final No growth in 5 days. 03/30/25 16:00 Sputum, Induced/Lukens Gram Stain - Final 03/30/25 16:00 Sputum, Induced/Lukens Respiratory Culture - Final Staphylococcus aureus 03/30/25 11:46 Urine, Catheterized Urine Culture - Final Culture exhibits no growth. 03/31/25 08:30 Nasal Secretion MRSA (PCR) - Final 03/30/25 11:46 Urine Catheter - Hathaway Legionella Antigen - Final 03/30/25 11:46 Urine Catheter - Hathaway Streptococcus pneumoniae Antigen (M - Final 03/30/25 10:41 Mucosa - Nose SARS-CoV-2, Influenza & RSV (PCR) - Final Rhythm Strip Rhythm Strip: Sinus Rhythm Rate: 80 Ectopy: None Physical Exam Const alert, oriented x3 and no apparent distress General Appearance: cooperative and comfortable HEENT normocephalic, head/scalp atraumatic, hearing grossly normal bilaterally, nasal mucous membranes and turbinates normal, moist oral mucous membranes and oropharynx normal Eyes PERRL, EOMs intact bilaterally and conjunctivae normal Neck full ROM, supple and no JVD Lymph Lymphatic: no lymphedema noted Chest inspection of chest normal Resp Resp Narrative: mildly diminished breath sounds bibasally, no wheezes or crackles. on room air. Cardio regular rate, regular rhythm, S1 normal heart sound, S2 normal heart sound, no murmurs and peripheral pulses 2+ throughout GI normal to inspection, nondistended, normoactive bowel sounds, soft to palpation, non-tender and non-distended Back/Spine normal ROM Extremity normal capillary refill, no clubbing, cyanosis or edema and no calf tenderness Extremity Narrative: +2-3 pitting edema in right lower extremity from knee down. +1 pitting edema in left lower extremity from knee down. General Extremity: no tenderness to palpation of joints or extremities Skin no rashes or lesions noted General Skin Exam: no breakdown Neuro moves all extremities, no focal motor deficits and no sensory deficits noted Motor Exam: general weakness Psych mental status grossly normal, thought process normal and cooperative Mood & Affect: flat affect Assessment & Plan Assessment/Plan (1) Acute on chronic HFrEF (heart failure with reduced ejection fraction): (2) Oropharyngeal dysphagia: PLAN: Plan #Acute hypoxic respiratory failure due to bilateral PE, ac elizabeth HFrEF and pneumonia * Now weaned off of BiPAP. Had a protracted hospital course which required him to be intubated and admitted to the ICU. She was eventually extubated onto nasal cannula oxygen and is now on room air. * On Eliquis. Also on Lasix. * Titrate oxygen to maintain saturation above 90%. * #Acute bilateral PE * CT chest showed partially occlusive thrombus within the proximal right lower lobe pulmonary arteries and partly occlusive clot visible to the right upper lobe pulmonary vessels and nonocclusive clot visible in the left upper lobe proximal branch vessels with diffuse patchy interstitial and alveolar infiltrates with peripheral wedge-shaped consolidation with severe the bases. * Was initially on heparin drip but is now on Eliquis. * #Acute on chronic heart failure with reduced ejection fraction: * Has known EF of 20% with moderately enlarged left atrium, moderate mitral valve insufficiency and trivial pericardial effusion. * On Aldactone and furosemide. Cardiology on board. * also on carvedilol and entresto #Probable aspiration * Had modified barium swallow which showed soft tissue excretions on phrenoesophageal region. She had EGD after GI was consulted and EGD showed moderately severe erosive esophagitis with no bleeding and benign-appearing esophageal stenosis which was dilated as well as medium size hiatal hernia and chronic gastritis which was biopsied with no gross lesions in the entire examined duodenum * . On pantoprazole. * #Sepsis due to pneumonia: Sputum cultures grew MRSA. Completed a course of antibiotics. 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 On Lantus. * Insulin sliding scale. Accu-Cheks ACHS. She did develop hypoglycemia during this admission. Lantus therefore decreased. * #Hyperlipidemia: On statin #History of peripheral artery disease: Had stents placed in the lower extremities about a year ago. On dual antiplatelet therapy and high intensity statin #Chronic hypotension: On midodrine but this was held on admission. Resume as needed #Chronic back pain due to chronic compression fractures: PT OT on board. On pain meds as needed. #Chronic anemia: Monitor hemoglobin and transfuse if hemoglobin is less than 7. #History of depression with anxiety: On escitalopram #Hypokalemia: Resolved #Vitamin D deficiency: On vitamin D supplementation #DVT prophylaxis: Not indicated as patient on Eliquis. Disposition: Insurance denied SNF placement. Patient on the process of appeal. Disposition will be predicated on outcome of appeal. Charges/Coding Visit Charges Inpatient E&M: 51063 Subs Hosp L2
[2025-04-14 16:05] VITALS: BP 110/54; PULSE 77; RESP 16; TEMP 36.6; O2SAT 98
[2025-04-14 17:34] VITALS: BP 128/77; PULSE 83
[2025-04-14 23:00] VITALS: BP 123/70; PULSE 83; RESP 16; TEMP 36.7; O2SAT 99
[2025-04-14] MEDS: 0.9% Saline Lock 10 ML Syringe IV (23:03)
[2025-04-15 03:38] VITALS: BMI 30.6
[2025-04-15 05:15] VITALS: BP 98/50; PULSE 79; RESP 18; TEMP 36.7; O2SAT 98
[2025-04-15] MEDS: SACUBITRIL/VALSARTAN 24/26 MG TABLET 1 EACH PO ×2 (08:52→21:38)
[2025-04-15] MEDS: APIXABAN 5 MG TABLET PO ×2 (08:52→21:38)
--- NOTE | 2025-04-15 09:22 | CASEMGMT ---
Social Work SW spoke with the patient. Patient reported she wants to wait for the appeal decision to come back before DC. Patient has told the physician she wanted to DC today home. SW spoke with the patient about setting up HH at DC if the appeal is denied. Patient has not looked at the HH list given to her last week Plan: SW will follow regarding HH choice. NARCISA Miranda
[2025-04-15] MEDS: Insulin Glargine-YFGN 100 UNIT/ML Pen 10 UNIT SC (10:20)
[2025-04-15 10:29] VITALS: BP 108/68; PULSE 81; RESP 18; TEMP 36.2; O2SAT 98
--- NOTE | 2025-04-15 10:58 | WOUNDNOTE ---
wound photo: sacrum
[2025-04-15 10:59] LABS: Hematocrit 27.3 % (37-47); Hemoglobin 8.9 g/dL (12.0-15.0); Immature Granulocytes Count 0.020 X10^3/uL (0.0-0.0); Mean Corp Hgb Conc 32.6 g/dL (32-36); Mean Corpuscular Volume 85.0 fL (81-99); Mean Platelet Vol. 9.2 fl (6.2-12.0); NRBC Flagged by Analyzer 0 % (0-5); Platelet Count 252 K/mm3 (150-450); RBC Distribution Width CV 13.4 % (11.6-14.6); RBC Distribution Width SD 41.5 fl (35.1-43.9); Red Blood Count 3.21 M/mm3 (4.2-5.4); White Blood Count 8.5 K/mm3 (4.4-11.0)
[2025-04-15 11:26] LABS: Anion Gap 15 (5-15); BUN 29 mg/dL (4-19); BUN/Creat Ratio 20.9 RATIO (10-20); Calcium,Total 9.1 mg/dL (7.6-11.0); Carbon Dioxide 18.7 mmol/L (21.0-32.0); Chloride 100 mmol/L (98-108); Estimated Creatinine Clearance 52.58 ml/min (50-250); Glucose 249 mg/dL (70-99); Potassium 3.9 mmol/L (3.3-5.1)
--- NOTE | 2025-04-15 12:26 | PCM.PROGNOTE ---
Subjective Subjective Objective Data Objective Data Vital Signs: Vital Signs Temp Pulse Resp BP Pulse Ox O2 Del Method O2 Flow Rate 97.2 F L 81 18 108/68 98 Room Air 1 04/15/25 10:29 04/15/25 10:29 04/15/25 10:29 04/15/25 10:29 04/15/25 10:29 04/15/25 10:29 04/06/25 14:22 FiO2 30 04/06/25 14:22 Oxygen Flow Rate (L/min) 1 Oxygen Delivery Method Room Air Weight: 190 lb 7.67 oz Body Mass Index (BMI) 30.6 Intake & Output: Intake and Output for Last 24 Hours 04/13/25 04/14/25 04/15/25 23:59 23:59 23:59 Intake Total 800 / 800 340 / 340 480 / 480 Output Total Balance 800 / 799 339 / 339 480 / 480 Lab / Micro Data 04/15/25 10:31 04/15/25 10:31 Labs: Laboratory Results - last 24 hr 04/14/25 12:56: POC Glucose 225 H 04/14/25 17:35: POC Glucose 263 H 04/14/25 22:59: POC Glucose 201 H 04/15/25 06:24: POC Glucose 216 H 04/15/25 10:31: WBC 8.5, RBC 3.21 L, Hgb 8.9 L, Hct 27.3 L, MCV 85.0, MCH 27.7, MCHC 32.6, RDW Std Deviation 41.5, RDW Coeff of Spencer 13.4, Plt Count 252, MPV 9.2, Immature Gran % (Auto) 0.200, Neut % (Auto) 70.0, Lymph % (Auto) 20.3, [place] % (Auto) 7.3, Eos % (Auto) 1.3, Baso % (Auto) 0.9, Absolute Neuts (auto) 5.9, Absolute Lymphs (auto) 1.72, Nucleated RBC % 0, Sodium 134, Potassium 3.9, Chloride 100, Carbon Dioxide 18.7 L, Anion Gap 15, BUN 29 H, Creatinine 1.37 H, Estim Creat Clear Calc 52.58, Est GFR (MDRD) Non-Af 46 L, BUN/Creatinine Ratio 20.9 H, Glucose 249 H, Calcium 9.1 Micro: Microbiology 03/30/25 11:20 Blood Culture (Wb) - Left Wrist Blood Culture - Final No growth in 5 days. 03/30/25 11:00 Blood Culture (Wb) - Chest Blood Culture - Final No growth in 5 days. 03/30/25 16:00 Sputum, Induced/Lukens Gram Stain - Final 03/30/25 16:00 Sputum, Induced/Lukens Respiratory Culture - Final Staphylococcus aureus 03/30/25 11:46 Urine, Catheterized Urine Culture - Final Culture exhibits no growth. 03/31/25 08:30 Nasal Secretion MRSA (PCR) - Final 03/30/25 11:46 Urine Catheter - Hathaway Legionella Antigen - Final 03/30/25 11:46 Urine Catheter - Hathaway Streptococcus pneumoniae Antigen (M - Final 03/30/25 10:41 Mucosa - Nose SARS-CoV-2, Influenza & RSV (PCR) - Final Rhythm Strip Rhythm Strip: Sinus Rhythm Rate: 80 Ectopy: None
--- NOTE | 2025-04-15 13:18 | PN_ITS ---
Subjective Subjective Patient seen and examined today. She still complained of nausea. Review of systems otherwise negative. She is awaiting the results of her appeal for denial of SNF placement. She will remain hemodynamically stable. Objective Data Objective Data Vital Signs: Vital Signs Temp Pulse Resp BP Pulse Ox O2 Del Method O2 Flow Rate 97.2 F L 81 18 108/68 98 Room Air 1 04/15/25 10:29 04/15/25 10:29 04/15/25 10:29 04/15/25 10:29 04/15/25 10:29 04/15/25 10:29 04/06/25 14:22 FiO2 30 04/06/25 14:22 Oxygen Flow Rate (L/min) 1 Oxygen Delivery Method Room Air Weight: 190 lb 7.67 oz Body Mass Index (BMI) 30.6 Intake & Output: Intake and Output for Last 24 Hours 04/13/25 04/14/25 04/15/25 23:59 23:59 23:59 Intake Total 800 / 800 340 / 340 480 / 480 Output Total Balance 800 / 799 339 / 339 480 / 480 Lab / Micro Data 04/15/25 10:31 04/15/25 10:31 Labs: Laboratory Results - last 24 hr 04/14/25 12:56: POC Glucose 225 H 04/14/25 17:35: POC Glucose 263 H 04/14/25 22:59: POC Glucose 201 H 04/15/25 06:24: POC Glucose 216 H 04/15/25 10:31: WBC 8.5, RBC 3.21 L, Hgb 8.9 L, Hct 27.3 L, MCV 85.0, MCH 27.7, MCHC 32.6, RDW Std Deviation 41.5, RDW Coeff of Spencer 13.4, Plt Count 252, MPV 9.2, Immature Gran % (Auto) 0.200, Neut % (Auto) 70.0, Lymph % (Auto) 20.3, Hand % (Auto) 7.3, Eos % (Auto) 1.3, Baso % (Auto) 0.9, Absolute Neuts (auto) 5.9, Absolute Lymphs (auto) 1.72, Nucleated RBC % 0, Sodium 134, Potassium 3.9, Chloride 100, Carbon Dioxide 18.7 L, Anion Gap 15, BUN 29 H, Creatinine 1.37 H, Estim Creat Clear Calc 52.58, Est GFR (MDRD) Non-Af 46 L, BUN/Creatinine Ratio 20.9 H, Glucose 249 H, Calcium 9.1 04/15/25 12:27: POC Glucose 263 H Micro: Microbiology 03/30/25 11:20 Blood Culture (Wb) - Left Wrist Blood Culture - Final No growth in 5 days. 03/30/25 11:00 Blood Culture (Wb) - Chest Blood Culture - Final No growth in 5 days. 03/30/25 16:00 Sputum, Induced/Lukens Gram Stain - Final 03/30/25 16:00 Sputum, Induced/Lukens Respiratory Culture - Final Staphylococcus aureus 03/30/25 11:46 Urine, Catheterized Urine Culture - Final Culture exhibits no growth. 03/31/25 08:30 Nasal Secretion MRSA (PCR) - Final 03/30/25 11:46 Urine Catheter - Hathaway Legionella Antigen - Final 03/30/25 11:46 Urine Catheter - Hathaway Streptococcus pneumoniae Antigen (M - Final 03/30/25 10:41 Mucosa - Nose SARS-CoV-2, Influenza & RSV (PCR) - Final Rhythm Strip Rhythm Strip: Sinus Rhythm Rate: 80 Ectopy: None Physical Exam Const alert, oriented x3 and no apparent distress General Appearance: cooperative and comfortable HEENT normocephalic, head/scalp atraumatic, hearing grossly normal bilaterally, moist oral mucous membranes and oropharynx normal Eyes EOMs intact bilaterally and conjunctivae normal Neck full ROM, supple and no JVD Lymph Lymphatic: no lymphedema noted Chest inspection of chest normal Resp normal respiratory effort, normal air movement and no use of accessory muscles Cardio regular rate, regular rhythm, S1 normal heart sound, S2 normal heart sound and no murmurs GI normal to inspection, nondistended, normoactive bowel sounds, soft to palpation, non-tender and non-distended Back/Spine normal ROM Extremity normal capillary refill, no clubbing, cyanosis or edema and no calf tenderness General Extremity: no tenderness to palpation of joints or extremities Skin no rashes or lesions noted General Skin Exam: no breakdown Neuro moves all extremities, no focal motor deficits and no sensory deficits noted Motor Exam: general weakness Psych mental status grossly normal, thought process normal and cooperative Mood & Affect: anxious Assessment & Plan Assessment/Plan (1) Acute on chronic HFrEF (heart failure with reduced ejection fraction): (2) Oropharyngeal dysphagia: PLAN: Plan #Acute hypoxic respiratory failure due to bilateral PE, ac elizabeth HFrEF and pneumonia * Now weaned off of BiPAP. Had a protracted hospital course which required him to be intubated and admitted to the ICU. She was eventually extubated onto nasal cannula oxygen and is now on room air. * On Eliquis. Also on Lasix. * Titrate oxygen to maintain saturation above 90%. * #Acute bilateral PE * CT chest showed partially occlusive thrombus within the proximal right lower lobe pulmonary arteries and partly occlusive clot visible to the right upper lobe pulmonary vessels and nonocclusive clot visible in the left upper lobe proximal branch vessels with diffuse patchy interstitial and alveolar infiltrates with peripheral wedge-shaped consolidation with severe the bases. * on eliquis * #Acute on chronic heart failure with reduced ejection fraction: * Has known EF of 20% with moderately enlarged left atrium, moderate mitral valve insufficiency and trivial pericardial effusion. * On Aldactone and furosemide. Cardiology on board. * also on carvedilol and entresto #Probable aspiration * Had modified barium swallow which showed soft tissue excretions on phrenoesophageal region. She had EGD after GI was consulted and EGD showed moderately severe erosive esophagitis with no bleeding and benign-appearing esophageal stenosis which was dilated as well as medium size hiatal hernia and chronic gastritis which was biopsied with no gross lesions in the entire examined duodenum * . On pantoprazole. * #Sepsis due to pneumonia: Sputum cultures grew MRSA. Completed a course of antibiotics. 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 On Lantus. * Insulin sliding scale. Accu-Cheks ACHS. She did develop hypoglycemia during this admission. Lantus therefore decreased. * #Hyperlipidemia: On statin #History of peripheral artery disease: Had stents placed in the lower extremities about a year ago. On dual antiplatelet therapy and high intensity statin #Chronic hypotension: On midodrine but this was held on admission. Resume as needed #Chronic back pain due to chronic compression fractures: PT OT on board. On pain meds as needed. #Chronic anemia: Monitor hemoglobin and transfuse if hemoglobin is less than 7. #History of depression with anxiety: On escitalopram #Hypokalemia: Resolved #Vitamin D deficiency: On vitamin D supplementation #DVT prophylaxis: Not indicated as patient on Eliquis. Disposition: Insurance denied SNF placement. Patient on the process of appeal. Disposition will be predicated on outcome of appeal. Charges/Coding Visit Charges Inpatient E&M: 22014 Subs Hosp L2
--- NOTE | 2025-04-15 13:57 | CASEMGMT ---
Social Work SW spoke with the patient. Patient chose [facility] if she DC home. NARCISA Miranda
[2025-04-15] MEDS: 0.9% Saline Lock 10 ML Syringe IV (14:41)
[2025-04-15 16:30] VITALS: BP 113/77; PULSE 84; RESP 16; TEMP 36.6; O2SAT 100
[2025-04-15 21:35] VITALS: BP 126/59; PULSE 80; RESP 18; TEMP 36.8; O2SAT 99
[2025-04-15] MEDS: Senna/Docusate Sodium 1 Tablet 2 TABLET PO (21:39)
[2025-04-16 02:44] VITALS: BMI 30.4
[2025-04-16 04:37] VITALS: BP 125/62; PULSE 81; RESP 18; TEMP 36.1; O2SAT 95
[2025-04-16 09:00] VITALS: BP 100/59; PULSE 76; RESP 16; TEMP 36.4; O2SAT 99
[2025-04-16] MEDS: APIXABAN 5 MG TABLET PO ×2 (09:08→21:22)
[2025-04-16] MEDS: Insulin Glargine-YFGN 100 UNIT/ML Pen 10 UNIT SC (09:09)
[2025-04-16 09:13] LABS: Anion Gap 12 (5-15); BUN 33 mg/dL (4-19); BUN/Creat Ratio 24.5 RATIO (10-20); Calcium,Total 9.2 mg/dL (7.6-11.0); Carbon Dioxide 22.6 mmol/L (21.0-32.0); Chloride 101 mmol/L (98-108); Estimated Creatinine Clearance 53.27 ml/min (50-250); Glucose 217 mg/dL (70-99); Potassium 4.4 mmol/L (3.3-5.1)
[2025-04-16] MEDS: SACUBITRIL/VALSARTAN 24/26 MG TABLET 1 EACH PO ×2 (09:46→21:22)
--- NOTE | 2025-04-16 11:06 | PN_ITS ---
Subjective Subjective Patient seen and examined with her nurse by her bedside. She had no active complaints. Review of systems otherwise negative. Objective Data Objective Data Vital Signs: Vital Signs Temp Pulse Resp BP Pulse Ox O2 Del Method O2 Flow Rate 97.6 F L 76 16 100/59 L 99 Room Air 1 04/16/25 09:00 04/16/25 09:00 04/16/25 09:00 04/16/25 09:00 04/16/25 09:00 04/16/25 10:00 04/06/25 14:22 FiO2 30 04/06/25 14:22 Oxygen Flow Rate (L/min) 1 Oxygen Delivery Method Room Air Weight: 189 lb 13.088 oz Body Mass Index (BMI) 30.4 Intake & Output: Intake and Output for Last 24 Hours 04/14/25 04/15/25 04/16/25 23:59 23:59 23:59 Intake Total 340 / 340 840 / 840 Output Total 250 / 250 Balance 339 / 339 590 / 590 Lab / Micro Data 04/15/25 10:31 04/16/25 08:38 Labs: Laboratory Results - last 24 hr 04/15/25 10:31: Sodium 134, Potassium 3.9, Chloride 100, Carbon Dioxide 18.7 L, Anion Gap 15, BUN 29 H, Creatinine 1.37 H, Estim Creat Clear Calc 52.58, Est GFR (MDRD) Non-Af 46 L, BUN/Creatinine Ratio 20.9 H, Glucose 249 H, Calcium 9.1 04/15/25 12:27: POC Glucose 263 H 04/15/25 16:45: POC Glucose 225 H 04/15/25 21:36: POC Glucose 157 H 04/16/25 06:31: POC Glucose 214 H 04/16/25 08:38: Sodium 135, Potassium 4.4, Chloride 101, Carbon Dioxide 22.6, Anion Gap 12, BUN 33 H, Creatinine 1.35 H, Estim Creat Clear Calc 53.27, Est GFR (MDRD) Non-Af 47 L, BUN/Creatinine Ratio 24.5 H, Glucose 217 H, Calcium 9.2 04/16/25 09:02: POC Glucose 198 H Micro: Microbiology 03/30/25 11:20 Blood Culture (Wb) - Left Wrist Blood Culture - Final No growth in 5 days. 03/30/25 11:00 Blood Culture (Wb) - Chest Blood Culture - Final No growth in 5 days. 03/30/25 16:00 Sputum, Induced/Lukens Gram Stain - Final 03/30/25 16:00 Sputum, Induced/Lukens Respiratory Culture - Final Staphylococcus aureus 03/30/25 11:46 Urine, Catheterized Urine Culture - Final Culture exhibits no growth. 03/31/25 08:30 Nasal Secretion MRSA (PCR) - Final 03/30/25 11:46 Urine Catheter - Hathaway Legionella Antigen - Final 03/30/25 11:46 Urine Catheter - Hathaway Streptococcus pneumoniae Antigen (M - Final 03/30/25 10:41 Mucosa - Nose SARS-CoV-2, Influenza & RSV (PCR) - Final Rhythm Strip Rhythm Strip: Sinus Rhythm Rate: 80 Ectopy: None Physical Exam Const alert, oriented x3 and no apparent distress Constitutional Narrative: tearful due to back pain General Appearance: cooperative and comfortable HEENT normocephalic, head/scalp atraumatic, hearing grossly normal bilaterally, nasal mucous membranes and turbinates normal, moist oral mucous membranes and oropharynx normal Eyes PERRL, EOMs intact bilaterally and conjunctivae normal Neck full ROM, supple and no JVD Lymph Lymphatic: no lymphedema noted Chest inspection of chest normal Resp normal respiratory effort, normal air movement and no use of accessory muscles Cardio regular rhythm, S1 normal heart sound, S2 normal heart sound, no murmurs and peripheral pulses 2+ throughout GI normal to inspection, nondistended, normoactive bowel sounds, soft to palpation, non-tender and non-distended Back/Spine normal ROM Extremity normal capillary refill, no clubbing, cyanosis or edema and no calf tenderness General Extremity: no tenderness to palpation of joints or extremities Skin no rashes or lesions noted General Skin Exam: no breakdown Neuro moves all extremities, no focal motor deficits and no sensory deficits noted Motor Exam: general weakness Psych mental status grossly normal, thought process normal and cooperative Mood & Affect: anxious and flat affect Assessment & Plan Assessment/Plan (1) Acute on chronic HFrEF (heart failure with reduced ejection fraction): (2) Oropharyngeal dysphagia: PLAN: Plan #Acute hypoxic respiratory failure due to bilateral PE, ac elizabeth HFrEF and pneumonia * Now weaned off of BiPAP. Had a protracted hospital course which required him to be intubated and admitted to the ICU. She was eventually extubated onto nasal cannula oxygen and is now on room air. * On Eliquis. Also on Lasix. * Titrate oxygen to maintain saturation above 90%. * #Acute bilateral PE * CT chest showed partially occlusive thrombus within the proximal right lower lobe pulmonary arteries and partly occlusive clot visible to the right upper lobe pulmonary vessels and nonocclusive clot visible in the left upper lobe proximal branch vessels with diffuse patchy interstitial and alveolar infiltrates with peripheral wedge-shaped consolidation with severe the bases. * on eliquis * #Acute on chronic heart failure with reduced ejection fraction: * Has known EF of 20% with moderately enlarged left atrium, moderate mitral valve insufficiency and trivial pericardial effusion. * On Aldactone and furosemide. Cardiology on board. * also on carvedilol and entresto * BP running low today so blood pressure medications held. #Probable aspiration * Had modified barium swallow which showed soft tissue excretions on phrenoesophageal region. She had EGD after GI was consulted and EGD showed moderately severe erosive esophagitis with no bleeding and benign-appearing esophageal stenosis which was dilated as well as medium size hiatal hernia and chronic gastritis which was biopsied with no gross lesions in the entire examined duodenum * . On pantoprazole. * #Sepsis due to pneumonia: Sputum cultures grew MRSA. Completed a course of antibiotics. 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 On Lantus. * Insulin sliding scale. Accu-Cheks ACHS. She did develop hypoglycemia during this admission. Lantus therefore decreased. * #Hyperlipidemia: On statin #History of peripheral artery disease: Had stents placed in the lower extremities about a year ago. On dual antiplatelet therapy and high intensity statin #Chronic hypotension: On midodrine but this was held on admission. Resume as needed #Chronic back pain due to chronic compression fractures: PT OT on board. On pain meds as needed. #Chronic anemia: Monitor hemoglobin and transfuse if hemoglobin is less than 7. #History of depression with anxiety: On escitalopram #Hypokalemia: Resolved #Vitamin D deficiency: On vitamin D supplementation #DVT prophylaxis: Not indicated as patient on Eliquis. Disposition: Insurance denied SNF placement. Patient on the process of appeal. Disposition will be predicated on outcome of appeal. Charges/Coding Visit Charges Inpatient E&M: 31391 Subs Hosp L2
--- NOTE | 2025-04-16 13:06 | CASEMGMT ---
Social Work SW spoke with the patient. The patient was crying. Patient reported she does not know what to do. She reported she wants to go home and her daughter wants her home. SW informed the patient she can DC home. Patient reported if the appeal is not back by tomorrow she wants to DC home with HH. Plan: SW will follow up with the patient in the morning regarding her DC decision. Patient chose [facility] for HH if she DC home. NARCISA Miranda
[2025-04-16 14:39] VITALS: BP 109/64; PULSE 78; RESP 16; TEMP 36.6; O2SAT 99
[2025-04-16 17:15] VITALS: BP 132/68; PULSE 80
[2025-04-16 21:11] VITALS: BP 115/61; PULSE 79; RESP 18; TEMP 36.7; O2SAT 98
[2025-04-17] MEDS: 0.9% Saline Lock 10 ML Syringe IV ×3 (03:23→18:45)
[2025-04-17 03:31] VITALS: BP 144/73; PULSE 78; RESP 18; TEMP 35.9; O2SAT 98
[2025-04-17 05:15] VITALS: BMI 31.0
[2025-04-17 09:00] VITALS: BP 145/74; PULSE 82; RESP 18; TEMP 36.3; O2SAT 100
[2025-04-17] MEDS: APIXABAN 5 MG TABLET PO ×2 (09:03→23:44)
[2025-04-17] MEDS: SACUBITRIL/VALSARTAN 24/26 MG TABLET 1 EACH PO ×2 (09:03→23:45)
[2025-04-17] MEDS: Insulin Glargine-YFGN 100 UNIT/ML Pen 10 UNIT SC (09:10)
--- NOTE | 2025-04-17 12:56 | PN_ITS ---
Subjective Subjective Patient seen and examined. SHe still complains of nausea and says she vomited 2x overnight. She has not vomited this morning. Review of systems is otherwise negtive. Objective Data Objective Data Vital Signs: Vital Signs Temp Pulse Resp BP Pulse Ox O2 Del Method O2 Flow Rate 97.3 F L 82 18 145/74 H 100 Room Air 1 04/17/25 09:00 04/17/25 09:00 04/17/25 09:00 04/17/25 09:00 04/17/25 09:00 04/17/25 09:16 04/06/25 14:22 FiO2 30 04/06/25 14:22 Oxygen Flow Rate (L/min) 1 Oxygen Delivery Method Room Air Weight: 193 lb Body Mass Index (BMI) 31.0 Intake & Output: Intake and Output for Last 24 Hours 04/15/25 04/16/25 04/17/25 23:59 23:59 23:59 Intake Total 840 / 840 360 / 360 Output Total 250 / 250 Balance 590 / 590 360 / 360 Lab / Micro Data 04/15/25 10:31 04/16/25 08:38 Labs: Laboratory Results - last 24 hr 04/16/25 16:38: POC Glucose 231 H 04/16/25 21:20: POC Glucose 200 H 04/17/25 09:00: POC Glucose 269 H 04/17/25 11:52: POC Glucose 237 H Micro: Microbiology 03/30/25 11:20 Blood Culture (Wb) - Left Wrist Blood Culture - Final No growth in 5 days. 03/30/25 11:00 Blood Culture (Wb) - Chest Blood Culture - Final No growth in 5 days. 03/30/25 16:00 Sputum, Induced/Lukens Gram Stain - Final 03/30/25 16:00 Sputum, Induced/Lukens Respiratory Culture - Final Staphylococcus aureus 03/30/25 11:46 Urine, Catheterized Urine Culture - Final Culture exhibits no growth. 03/31/25 08:30 Nasal Secretion MRSA (PCR) - Final 03/30/25 11:46 Urine Catheter - Hathaway Legionella Antigen - Final 03/30/25 11:46 Urine Catheter - Hathaway Streptococcus pneumoniae Antigen (M - Final 03/30/25 10:41 Mucosa - Nose SARS-CoV-2, Influenza & RSV (PCR) - Final Rhythm Strip Rhythm Strip: Sinus Rhythm Rate: 80 Ectopy: None Physical Exam Const alert, oriented x3 and no apparent distress Constitutional Narrative: tearful due to back pain General Appearance: cooperative and comfortable HEENT normocephalic, head/scalp atraumatic, hearing grossly normal bilaterally, nasal mucous membranes and turbinates normal, moist oral mucous membranes and oropharynx normal Eyes PERRL, EOMs intact bilaterally and conjunctivae normal Neck full ROM, supple and no JVD Lymph Lymphatic: no lymphedema noted Chest inspection of chest normal Resp normal respiratory effort, normal air movement and no use of accessory muscles Resp Narrative: mildly diminished breath sounds bibasally, no wheezes or crackles. on room air. Cardio regular rate, regular rhythm, S1 normal heart sound, S2 normal heart sound, no murmurs and peripheral pulses 2+ throughout Cardio Narrative: Tachycardic, regular rhythm. GI normal to inspection, nondistended, normoactive bowel sounds, soft to palpation, non-tender and non-distended Back/Spine normal ROM Extremity normal capillary refill, no clubbing, cyanosis or edema and no calf tenderness Extremity Narrative: +2-3 pitting edema in right lower extremity from knee down. +1 pitting edema in left lower extremity from knee down. General Extremity: no tenderness to palpation of joints or extremities Skin no rashes or lesions noted General Skin Exam: no breakdown Neuro moves all extremities, no focal motor deficits and no sensory deficits noted Motor Exam: general weakness Psych mental status grossly normal, thought process normal and cooperative Mood & Affect: anxious and flat affect Assessment & Plan Assessment/Plan (1) Acute on chronic HFrEF (heart failure with reduced ejection fraction): (2) Oropharyngeal dysphagia: PLAN: Plan #Acute hypoxic respiratory failure due to bilateral PE, ac elizabeth HFrEF and pneumonia * Now weaned off of BiPAP. Had a protracted hospital course which required him to be intubated and admitted to the ICU. She was eventually extubated onto nasal cannula oxygen and is now on room air. * On Eliquis. Also on Lasix. * Titrate oxygen to maintain saturation above 90%. * #Acute bilateral PE * CT chest showed partially occlusive thrombus within the proximal right lower lobe pulmonary arteries and partly occlusive clot visible to the right upper lobe pulmonary vessels and nonocclusive clot visible in the left upper lobe proximal branch vessels with diffuse patchy interstitial and alveolar infiltrates with peripheral wedge-shaped consolidation with severe the bases. * on eliquis * #Acute on chronic heart failure with reduced ejection fraction: * Has known EF of 20% with moderately enlarged left atrium, moderate mitral valve insufficiency and trivial pericardial effusion. * On Aldactone and furosemide. Cardiology on board. * also on carvedilol and entresto * BP running low today so blood pressure medications held. #Probable aspiration * Had modified barium swallow which showed soft tissue excretions on phrenoesophageal region. She had EGD after GI was consulted and EGD showed moderately severe erosive esophagitis with no bleeding and benign-appearing esophageal stenosis which was dilated as well as medium size hiatal hernia and chronic gastritis which was biopsied with no gross lesions in the entire examined duodenum * . On pantoprazole. * #Sepsis due to pneumonia: Sputum cultures grew MRSA. Completed a course of antibiotics. 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 On Lantus. * Insulin sliding scale. Accu-Cheks ACHS. She did develop hypoglycemia during this admission. Lantus therefore decreased. * #Hyperlipidemia: On statin #History of peripheral artery disease: Had stents placed in the lower extremities about a year ago. On dual antiplatelet therapy and high intensity statin #Chronic hypotension: On midodrine but this was held on admission. Resume as needed #Chronic back pain due to chronic compression fractures: PT OT on board. On pain meds as needed. #Chronic anemia: Monitor hemoglobin and transfuse if hemoglobin is less than 7. #History of depression with anxiety: On escitalopram #Hypokalemia: Resolved #Vitamin D deficiency: On vitamin D supplementation #DVT prophylaxis: Not indicated as patient on Eliquis. Disposition: Insurance denied SNF placement. Patient on the process of appeal. Disposition will be predicated on outcome of appeal.
[2025-04-17 15:00] VITALS: BP 125/72; PULSE 81; RESP 18; TEMP 36.6; O2SAT 98
--- NOTE | 2025-04-17 15:31 | CASEMGMT ---
Social Work Patient still waiting on the appeal. Patient has been accepted at [facility]. 7000 completed, transport form started. Patient wants [facility] if she DC home. Green sheet in the chart.? NARCISA Miranda
[2025-04-17 22:30] VITALS: BP 98/61; PULSE 82; RESP 16; TEMP 36.6; O2SAT 98
[2025-04-18 05:00] VITALS: BP 111/78; PULSE 79; RESP 16; TEMP 36.4; O2SAT 98
[2025-04-18] MEDS: 0.9% Saline Lock 10 ML Syringe IV ×2 (05:53→19:37)
[2025-04-18 06:00] VITALS: BMI 30.9
[2025-04-18 08:54] VITALS: BP 109/61; PULSE 74; RESP 12; TEMP 36.4; O2SAT 100
[2025-04-18] MEDS: Insulin Glargine-YFGN 100 UNIT/ML Pen 10 UNIT SC (08:56)
[2025-04-18] MEDS: SACUBITRIL/VALSARTAN 24/26 MG TABLET 1 EACH PO ×2 (08:58→21:36)
[2025-04-18] MEDS: APIXABAN 5 MG TABLET PO ×2 (08:58→21:35)
--- NOTE | 2025-04-18 10:16 | PN_ITS ---
Subjective Subjective Patient seen and examined. She had no complaints. She had an uneventful night. Review of systems is otherwise negative. She is awaiting appeal result. Objective Data Objective Data Vital Signs: Vital Signs Temp Pulse Resp BP Pulse Ox O2 Del Method O2 Flow Rate 97.5 F L 74 12 109/61 100 Room Air 1 04/18/25 08:54 04/18/25 08:54 04/18/25 08:54 04/18/25 08:54 04/18/25 08:54 04/18/25 09:39 04/06/25 14:22 FiO2 30 04/06/25 14:22 Oxygen Flow Rate (L/min) 1 Oxygen Delivery Method Room Air Weight: 192 lb 3.889 oz Body Mass Index (BMI) 30.9 Intake & Output: Intake and Output for Last 24 Hours 04/16/25 04/17/25 04/18/25 23:59 23:59 23:59 Intake Total 720 / 720 Balance 720 / 720 Lab / Micro Data 04/15/25 10:31 04/16/25 08:38 Labs: Laboratory Results - last 24 hr 04/17/25 11:52: POC Glucose 237 H 04/17/25 16:39: POC Glucose 238 H 04/17/25 23:50: POC Glucose 244 H 04/18/25 06:04: POC Glucose 222 H Micro: Microbiology 03/30/25 11:20 Blood Culture (Wb) - Left Wrist Blood Culture - Final No growth in 5 days. 03/30/25 11:00 Blood Culture (Wb) - Chest Blood Culture - Final No growth in 5 days. 03/30/25 16:00 Sputum, Induced/Lukens Gram Stain - Final 03/30/25 16:00 Sputum, Induced/Lukens Respiratory Culture - Final Staphylococcus aureus 03/30/25 11:46 Urine, Catheterized Urine Culture - Final Culture exhibits no growth. 03/31/25 08:30 Nasal Secretion MRSA (PCR) - Final 03/30/25 11:46 Urine Catheter - Hathaway Legionella Antigen - Final 03/30/25 11:46 Urine Catheter - Hathaway Streptococcus pneumoniae Antigen (M - Final 03/30/25 10:41 Mucosa - Nose SARS-CoV-2, Influenza & RSV (PCR) - Final Rhythm Strip Rhythm Strip: Sinus Rhythm Rate: 80 Ectopy: None Physical Exam Const alert and oriented x3 General Appearance: cooperative and comfortable HEENT normocephalic, head/scalp atraumatic, hearing grossly normal bilaterally, moist oral mucous membranes and oropharynx normal Eyes PERRL, EOMs intact bilaterally and conjunctivae normal Neck full ROM, supple and no JVD Lymph Lymphatic: no lymphedema noted Chest inspection of chest normal Resp normal respiratory effort, normal air movement and no use of accessory muscles Cardio regular rate, regular rhythm, S1 normal heart sound, S2 normal heart sound and no murmurs GI normal to inspection, nondistended, normoactive bowel sounds, soft to palpation, non-tender and non-distended Back/Spine normal ROM Extremity normal capillary refill, no clubbing, cyanosis or edema and no calf tenderness Extremity Narrative: +2-3 pitting edema in right lower extremity from knee down. General Extremity: no tenderness to palpation of joints or extremities Skin no rashes or lesions noted General Skin Exam: no breakdown Neuro moves all extremities, no focal motor deficits and no sensory deficits noted Motor Exam: general weakness Psych mental status grossly normal, thought process normal and cooperative Mood & Affect: flat affect Assessment & Plan Assessment/Plan (1) Acute on chronic HFrEF (heart failure with reduced ejection fraction): (2) Oropharyngeal dysphagia: PLAN: Plan #Acute hypoxic respiratory failure due to bilateral PE, ac elizabeth HFrEF and pneumonia * Now weaned off of BiPAP. Had a protracted hospital course which required him to be intubated and admitted to the ICU. She was eventually extubated onto nasal cannula oxygen and is now on room air. * On Eliquis. Also on Lasix. * Titrate oxygen to maintain saturation above 90%. * #Acute bilateral PE * CT chest showed partially occlusive thrombus within the proximal right lower lobe pulmonary arteries and partly occlusive clot visible to the right upper lobe pulmonary vessels and nonocclusive clot visible in the left upper lobe proximal branch vessels with diffuse patchy interstitial and alveolar infiltrates with peripheral wedge-shaped consolidation with severe the bases. * on eliquis * #Acute on chronic heart failure with reduced ejection fraction: * Has known EF of 20% with moderately enlarged left atrium, moderate mitral valve insufficiency and trivial pericardial effusion. * On Aldactone and furosemide. Cardiology on board. * also on carvedilol and entresto * BP running low today so blood pressure medications held. #Probable aspiration * Had modified barium swallow which showed soft tissue excretions on phrenoesophageal region. She had EGD after GI was consulted and EGD showed moderately severe erosive esophagitis with no bleeding and benign-appearing esophageal stenosis which was dilated as well as medium size hiatal hernia and chronic gastritis which was biopsied with no gross lesions in the entire examined duodenum * . On pantoprazole. * #Sepsis due to pneumonia: Sputum cultures grew MRSA. Completed a course of antibiotics. 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 On Lantus. * Insulin sliding scale. Accu-Cheks ACHS. She did develop hypoglycemia during this admission. Lantus therefore decreased. * #Hyperlipidemia: On statin #History of peripheral artery disease: Had stents placed in the lower extremities about a year ago. On dual antiplatelet therapy and high intensity statin #Chronic hypotension: On midodrine but this was held on admission. Resume as needed #Chronic back pain due to chronic compression fractures: PT OT on board. On pain meds as needed. #Chronic anemia: Monitor hemoglobin and transfuse if hemoglobin is less than 7. #History of depression with anxiety: On escitalopram #Hypokalemia: Resolved #Vitamin D deficiency: On vitamin D supplementation #DVT prophylaxis: Not indicated as patient on Eliquis. Disposition: Insurance denied SNF placement. Patient on the process of appeal. Disposition will be predicated on outcome of appeal. Outcome of appeal is still pending. Charges/Coding Visit Charges Inpatient E&M: 74664 Subs Hosp L2
[2025-04-18 15:49] VITALS: BP 125/64; PULSE 83; RESP 16; TEMP 36.9; O2SAT 99
[2025-04-18 21:30] VITALS: BP 108/56; PULSE 82; RESP 18; TEMP 36.7; O2SAT 99
[2025-04-18] MEDS: Senna/Docusate Sodium 1 Tablet 2 TABLET PO (21:34)
[2025-04-19 03:55] VITALS: BP 102/51; PULSE 77; RESP 16; TEMP 36.4; O2SAT 98
[2025-04-19 05:14] VITALS: BMI 30.9
[2025-04-19 08:33] VITALS: BP 94/43; PULSE 81; RESP 16; TEMP 36.6; O2SAT 100
[2025-04-19 08:35] LABS: Anion Gap 12 (5-15); BUN 34 mg/dL (4-19); BUN/Creat Ratio 24.3 RATIO (10-20); Calcium,Total 9.3 mg/dL (7.6-11.0); Carbon Dioxide 22.7 mmol/L (21.0-32.0); Chloride 101 mmol/L (98-108); Estimated Creatinine Clearance 51.33 ml/min (50-250); Glucose 249 mg/dL (70-99); Potassium 4.4 mmol/L (3.3-5.1)
[2025-04-19] MEDS: Insulin Glargine-YFGN 100 UNIT/ML Pen 10 UNIT SC (08:35)
[2025-04-19] MEDS: APIXABAN 5 MG TABLET PO ×2 (08:36→21:13)
[2025-04-19] MEDS: SACUBITRIL/VALSARTAN 24/26 MG TABLET 1 EACH PO ×2 (08:37→21:13)
--- NOTE | 2025-04-19 11:25 | PN_ITS ---
Subjective Subjective Patient seen and examined. Still complains of nausea. She had no other active complaints. She is still awaiting the outcome of the appeal. Review of systems otherwise negative. Creatinine is up to 1.41 today. She has remained hemodynamically stable. Objective Data Objective Data Vital Signs: Vital Signs Temp Pulse Resp BP Pulse Ox O2 Del Method O2 Flow Rate 97.8 F 81 16 94/43 L 100 Room Air 1 04/19/25 08:33 04/19/25 08:33 04/19/25 08:33 04/19/25 08:33 04/19/25 08:33 04/19/25 08:50 04/06/25 14:22 FiO2 30 04/06/25 14:22 Oxygen Flow Rate (L/min) 1 Oxygen Delivery Method Room Air Weight: 192 lb 3.889 oz Body Mass Index (BMI) 30.9 Intake & Output: Intake and Output for Last 24 Hours 04/17/25 04/18/25 04/19/25 23:59 23:59 23:59 Intake Total 720 / 720 1000 / 1240 240 / 240 Balance 720 / 720 1000 / 1240 240 / 240 Lab / Micro Data 04/15/25 10:31 04/19/25 08:05 Labs: Laboratory Results - last 24 hr 04/18/25 12:02: POC Glucose 304 H 04/18/25 17:12: POC Glucose 284 H 04/18/25 21:34: POC Glucose 220 H 04/19/25 06:16: POC Glucose 224 H 04/19/25 08:05: Sodium 135, Potassium 4.4, Chloride 101, Carbon Dioxide 22.7, Anion Gap 12, BUN 34 H, Creatinine 1.41 H, Estim Creat Clear Calc 51.33, Est GFR (MDRD) Non-Af 45 L, BUN/Creatinine Ratio 24.3 H, Glucose 249 H, Calcium 9.3 Micro: Microbiology 03/30/25 11:20 Blood Culture (Wb) - Left Wrist Blood Culture - Final No growth in 5 days. 03/30/25 11:00 Blood Culture (Wb) - Chest Blood Culture - Final No growth in 5 days. 03/30/25 16:00 Sputum, Induced/Lukens Gram Stain - Final 03/30/25 16:00 Sputum, Induced/Lukens Respiratory Culture - Final Staphylococcus aureus 03/30/25 11:46 Urine, Catheterized Urine Culture - Final Culture exhibits no growth. 03/31/25 08:30 Nasal Secretion MRSA (PCR) - Final 03/30/25 11:46 Urine Catheter - Hathaway Legionella Antigen - Final 03/30/25 11:46 Urine Catheter - Hathaway Streptococcus pneumoniae Antigen (M - Final 03/30/25 10:41 Mucosa - Nose SARS-CoV-2, Influenza & RSV (PCR) - Final Rhythm Strip Rhythm Strip: Sinus Rhythm Rate: 80 Ectopy: None Physical Exam Const alert, oriented x3 and no apparent distress General Appearance: cooperative and comfortable HEENT normocephalic, head/scalp atraumatic, hearing grossly normal bilaterally, nasal mucous membranes and turbinates normal, moist oral mucous membranes and oropharynx normal Eyes PERRL, EOMs intact bilaterally and conjunctivae normal Neck full ROM, supple and no JVD Lymph Lymphatic: no lymphedema noted Chest inspection of chest normal Resp normal respiratory effort, normal air movement and no use of accessory muscles Cardio regular rate, regular rhythm, S1 normal heart sound, S2 normal heart sound, no murmurs and peripheral pulses 2+ throughout Cardio Narrative: GI normal to inspection, nondistended, normoactive bowel sounds, soft to palpation, non-tender and non-distended Back/Spine normal ROM Extremity normal capillary refill, no clubbing, cyanosis or edema and no calf tenderness General Extremity: no tenderness to palpation of joints or extremities Skin no rashes or lesions noted General Skin Exam: no breakdown Neuro moves all extremities, no focal motor deficits and no sensory deficits noted Motor Exam: general weakness Psych mental status grossly normal, thought process normal and cooperative Appearance: appropriate Mood & Affect: anxious and flat affect Assessment & Plan Assessment/Plan (1) Acute on chronic HFrEF (heart failure with reduced ejection fraction): (2) Oropharyngeal dysphagia: PLAN: Plan #Acute hypoxic respiratory failure due to bilateral PE, ac [place] HFrEF and pneumonia * Now weaned off of BiPAP. Had a protracted hospital course which required him to be intubated and admitted to the ICU. She was eventually extubated onto nasal cannula oxygen and is now on room air. * On Eliquis. Also on Lasix. * Titrate oxygen to maintain saturation above 90%. * #Acute bilateral PE * CT chest showed partially occlusive thrombus within the proximal right lower lobe pulmonary arteries and partly occlusive clot visible to the right upper lobe pulmonary vessels and nonocclusive clot visible in the left upper lobe proximal branch vessels with diffuse patchy interstitial and alveolar infiltrates with peripheral wedge-shaped consolidation with severe the bases. * on eliquis * #Acute on chronic heart failure with reduced ejection fraction: * Has known EF of 20% with moderately enlarged left atrium, moderate mitral valve insufficiency and trivial pericardial effusion. * On Aldactone and furosemide. Cardiology on board. * also on carvedilol and entresto * BP running low today so blood pressure medications held. #Probable aspiration * Had modified barium swallow which showed soft tissue excretions on phrenoesophageal region. She had EGD after GI was consulted and EGD showed moderately severe erosive esophagitis with no bleeding and benign-appearing esophageal stenosis which was dilated as well as medium size hiatal hernia and chronic gastritis which was biopsied with no gross lesions in the entire examined duodenum * . On pantoprazole. * #Sepsis due to pneumonia: Sputum cultures grew MRSA. Completed a course of antibiotics. 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 On Lantus. * Insulin sliding scale. Accu-Cheks ACHS. She did develop hypoglycemia during this admission. Lantus therefore decreased. * #ROBBIE: Creatinine is 1.41 today. Baseline is around 1. Hydrate gently with IV fluids overnight and trend creatinine. #Hyperlipidemia: On statin #History of peripheral artery disease: Had stents placed in the lower extremities about a year ago. On dual antiplatelet therapy and high intensity statin #Chronic hypotension: On midodrine but this was held on admission. Resume as needed #Chronic back pain due to chronic compression fractures: PT OT on board. On pain meds as needed. #Chronic anemia: Monitor hemoglobin and transfuse if hemoglobin is less than 7. #History of depression with anxiety: On escitalopram #Hypokalemia: Resolved #Vitamin D deficiency: On vitamin D supplementation #DVT prophylaxis: Not indicated as patient on Eliquis. Disposition: Insurance denied SNF placement. Patient on the process of appeal. Disposition will be predicated on outcome of appeal. Outcome of appeal is still pending. Charges/Coding Visit Charges Inpatient E&M: 01598 Subs Hosp L2
[2025-04-19] MEDS: 0.9% Normal Saline (1000mL) 1,000 ML 100 ML IV (14:30)
[2025-04-19 14:55] VITALS: BP 104/64; PULSE 74; RESP 16; TEMP 36.8; O2SAT 96
[2025-04-19 21:09] VITALS: BP 110/59; PULSE 77; RESP 16; TEMP 36.6; O2SAT 100
[2025-04-20 04:15] VITALS: BP 119/57; PULSE 80; RESP 16; TEMP 36.8; O2SAT 99
[2025-04-20] MEDS: 0.9% Saline Lock 10 ML Syringe IV ×2 (04:18→07:55)
[2025-04-20 05:58] VITALS: BMI 30.7
--- NOTE | 2025-04-20 08:44 | PCM.PN.HOSP ---
Reason for Visit Chief Complaint: Shortness of breath Subjective Subjective Upset that it took so long to get her insurance authorization to go to a long-term facility. Objective Data Objective Data Vital Signs: Vital Signs Temp Pulse Resp BP Pulse Ox O2 Del Method O2 Flow Rate 36.8 C 80 16 119/57 L 99 Room Air 1 04/20/25 04:15 04/20/25 04:15 04/20/25 04:15 04/20/25 04:15 04/20/25 04:15 04/20/25 07:44 04/06/25 14:22 FiO2 30 04/06/25 14:22 Oxygen Flow Rate (L/min) 1 Oxygen Delivery Method Room Air Weight: 86.7 kg Body Mass Index (BMI) 30.7 Intake & Output: Intake and Output for Last 24 Hours 04/18/25 04/19/25 04/20/25 23:59 23:59 23:59 Intake Total 1000 / 1240 1140 / 1380 1240 / 1240 Balance 1000 / 1240 1140 / 1380 1240 / 1240 Lab / Micro Data 04/15/25 10:31 04/19/25 08:05 Labs: Laboratory Results - last 24 hr 04/19/25 11:43: POC Glucose 209 H 04/19/25 16:33: POC Glucose 273 H 04/19/25 21:11: POC Glucose 217 H 04/20/25 07:39: POC Glucose 234 H Micro: Microbiology 03/30/25 11:20 Blood Culture (Wb) - Left Wrist Blood Culture - Final No growth in 5 days. 03/30/25 11:00 Blood Culture (Wb) - Chest Blood Culture - Final No growth in 5 days. 03/30/25 16:00 Sputum, Induced/Lukens Gram Stain - Final 03/30/25 16:00 Sputum, Induced/Lukens Respiratory Culture - Final Staphylococcus aureus 03/30/25 11:46 Urine, Catheterized Urine Culture - Final Culture exhibits no growth. 03/31/25 08:30 Nasal Secretion MRSA (PCR) - Final 03/30/25 11:46 Urine Catheter - Hathaway Legionella Antigen - Final 03/30/25 11:46 Urine Catheter - Hathaway Streptococcus pneumoniae Antigen (M - Final 03/30/25 10:41 Mucosa - Nose SARS-CoV-2, Influenza & RSV (PCR) - Final Rhythm Strip Rhythm Strip: Sinus Rhythm Rate: 80 Ectopy: None Physical Exam Const Constitutional Narrative: Up in bed. Nontoxic. On room air. No respiratory distress. No conversational dyspnea. GI normal to inspection, nondistended, normoactive bowel sounds, soft to palpation, non-tender and non-distended Assessment & Plan Assessment/Plan (1) Acute on chronic HFrEF (heart failure with reduced ejection fraction): (2) Oropharyngeal dysphagia: PLAN: Plan Acute hypoxic respiratory failure due to bilateral PE, ac [place] HFrEF and pneumonia Now weaned off of BiPAP. Had a protracted hospital course which required him to be intubated and admitted to the ICU. She was eventually extubated onto nasal cannula oxygen and is now on room air. On Eliquis. Also on Lasix. On room air Acute bilateral PE CT chest showed partially occlusive thrombus within the proximal right lower lobe pulmonary arteries and partly occlusive clot visible to the right upper lobe pulmonary vessels and nonocclusive clot visible in the left upper lobe proximal branch vessels with diffuse patchy interstitial and alveolar infiltrates with peripheral wedge-shaped consolidation with severe the bases. on eliquis Acute on chronic heart failure with reduced ejection fraction: Has known EF of 20% with moderately enlarged left atrium, moderate mitral valve insufficiency and trivial pericardial effusion. On Aldactone and furosemide. Cardiology on board. on carvedilol and entresto and empagliflozin, spironolatone BP running low today so blood pressure medications held. MRSA pneumonia Had modified barium swallow which showed soft tissue excretions on phrenoesophageal region. She had EGD after GI was consulted and EGD showed moderately severe erosive esophagitis with no bleeding and benign-appearing esophageal stenosis which was dilated as well as medium size hiatal hernia and chronic gastritis which was biopsied with no gross lesions in the entire examined duodenum On pantoprazole. 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 Last A1c was 13.2 on 01/29/2025. On Lantus. Insulin sliding scale. Accu-Cheks ACHS. She did develop hypoglycemia during this admission. Lantus therefore decreased. Hyperlipidemia: On statin History of peripheral artery disease: Had stents placed in the lower extremities about a year ago. On dual antiplatelet therapy and high intensity statin Chronic hypotension: On midodrine but this was held on admission. Resume as needed Chronic back pain due to chronic compression fractures: PT OT on board. On pain meds as needed. Chronic anemia: Monitor hemoglobin and transfuse if hemoglobin is less than 7. History of depression with anxiety: On escitalopram Vitamin D deficiency: On vitamin D supplementation DVT prophylaxis: Not indicated as patient on Eliquis. Disposition: Patient finally excepted for long-term facility placement
--- NOTE | 2025-04-20 09:15 | CASEMGMT ---
Discharge Planning Updates sent via [facility] to [facility]. Appeal remains pending. Arelis Ngo DC Planning Asst.
[2025-04-20 09:20] VITALS: BP 143/71; PULSE 88; RESP 18; TEMP 36.5; O2SAT 94
[2025-04-20] MEDS: SACUBITRIL/VALSARTAN 24/26 MG TABLET 1 EACH PO (09:22)
[2025-04-20] MEDS: APIXABAN 5 MG TABLET PO (09:22)
[2025-04-20] MEDS: Insulin Glargine-YFGN 100 UNIT/ML Pen 10 UNIT SC (09:25)
--- NOTE | 2025-04-20 11:06 | CASEMGMT ---
Sanjana has obtained auth to admit. SW and physician updated. Arelis Ngo DC Planning Asst.
--- NOTE | 2025-04-20 11:11 | CASEMGMT ---
Social Work SW spoke with the patient and informed her she is approved to CO to [facility]. SW informed her SW will get transportation set up once her DC is completed. Patient reported she does not have clothes to wear at CO. SW informed SW can get her some clothes from a clothes closet and patient said she no she wants new clothes. Patient plans on asking her daughter to bring her clothes. NARCISA Miranda
--- NOTE | 2025-04-20 11:46 | PCM.TXEXTCAR ---
Diet Diet Order/Speech Therapy: INPATIENT Hospital Diet / Speech Therapy Order(s) 04/07/25 05:41 Diet: Carbohydrate Controlled Food consistency:: Easy to Chew Liquid Consistency:: Regular/Thin Dietary Modifications:: Cardiac / Heart Healthy Speech Therapy Comments: Distant sup, Ok for pt preference food: chips. Routine Orders/Code Status Enema Type: Fleetz Enema Frequency: Daily PRN Suppository Type: Dulcolax 10mg Suppository Frequency: Daily PRN DC O2, CPAP, BIPAP needs Home O2 Discharge instructions: No Wound(s) Coccyx: Wound Type: Pressure Injury Therapies Physical Therapy: Eval and Treat Occupational Therapy: Eval and Treat Problem/Diagnosis (1) Acute on chronic HFrEF (heart failure with reduced ejection fraction): Status: Chronic Code(s): I50.23 - Acute on chronic systolic (congestive) heart failure (2) Oropharyngeal dysphagia: Status: Acute Code(s): R13.12 - Dysphagia, oropharyngeal phase Plan Acute hypoxic respiratory failure due to bilateral PE, ac [place] HFrEF and pneumonia Now weaned off of BiPAP. Had a protracted hospital course which required him to be intubated and admitted to the ICU. She was eventually extubated onto nasal cannula oxygen and is now on room air. On Eliquis. Also on Lasix. Titrate oxygen to maintain saturation above 90%. Acute bilateral PE CT chest showed partially occlusive thrombus within the proximal right lower lobe pulmonary arteries and partly occlusive clot visible to the right upper lobe pulmonary vessels and nonocclusive clot visible in the left upper lobe proximal branch vessels with diffuse patchy interstitial and alveolar infiltrates with peripheral wedge-shaped consolidation with severe the bases. on eliquis Acute on chronic heart failure with reduced ejection fraction: Has known EF of 20% with moderately enlarged left atrium, moderate mitral valve insufficiency and trivial pericardial effusion. On Aldactone and furosemide. Cardiology on board. on carvedilol and entresto and empagliflozin, spironolatone BP running low today so blood pressure medications held. MRSA pneumonia Had modified barium swallow which showed soft tissue excretions on phrenoesophageal region. She had EGD after GI was consulted and EGD showed moderately severe erosive esophagitis with no bleeding and benign-appearing esophageal stenosis which was dilated as well as medium size hiatal hernia and chronic gastritis which was biopsied with no gross lesions in the entire examined duodenum On pantoprazole. 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 Last A1c was 13.2 on 01/29/2025. On Lantus. Insulin sliding scale. Accu-Cheks ACHS. She did develop hypoglycemia during this admission. Lantus therefore decreased. Hyperlipidemia: On statin History of peripheral artery disease: Had stents placed in the lower extremities about a year ago. On dual antiplatelet therapy and high intensity statin Chronic hypotension: On midodrine but this was held on admission. Resume as needed Chronic back pain due to chronic compression fractures: PT OT on board. On pain meds as needed. Chronic anemia: Monitor hemoglobin and transfuse if hemoglobin is less than 7. History of depression with anxiety: On escitalopram Vitamin D deficiency: On vitamin D supplementation DVT prophylaxis: Not indicated as patient on Eliquis. Allergies/Procedures Done in Hospital Allergies latex Allergy (Verified 01/29/25 15:41) Hives Procedures: None Type of Care/Length of Stay Estimated LOS: Convalescent Care Less Than 30 days Type of Care Needed: Skilled Rehab Potential: Fair Prognosis: Fair Additional Orders/Day of Discharge Day of Discharge: 04/11/25 Dietary and Speech Recommendations Dietitian Recommendations/Changes: Continue cardiac; consistent carbohydrate per [employer] REPA[employer]ER recommendations. Will monitor weight trends. At time of discharge recommend advanced diet as tolerated to cardiac; consistent carbohydrate per [employer] REPAIRER recommendations. Discharge Plan Admission Admit Date/Time: 03/30/25 13:57 Primary Reason for Your Visit: acute respiratory failure Attending Provider: Riccardo Shaikh Primary Care Provider: Zohreh Pratt [facility] Consulting Providers: Jonas Justin; Morro Aaron; Abdirizak Fajardo; Jeremy Alexander; Jeevan De Jesus; Evelyne Salvador; Griselda Huynh; Bina Saldana; Dominguez Mcneil; Talisha Boykin Instructions Patient Instructions: Coping with Heart Failure Discharge Orders/Prescriptions Prescriptions: New furosemide 40 mg Tablet 40 mg PO DAILY Qty: 30 2RF carvedilol 6.25 mg Tablet 6.25 mg PO BIDCM Qty: 60 2RF spironolactone 50 mg Tablet 50 mg PO DAILY Qty: 30 1RF Eliquis 5 mg Tablet 5 mg PO BID Qty: 60 2RF Jardiance 10 mg Tablet 10 mg PO DAILY Qty: 30 2RF melatonin 3 mg Tablet 3 mg PO QHS PRN PRN (Reason: Insomnia) Qty: 0 0RF oxycodone 5 mg Tablet 5 mg PO Q6H PRN (Reason: pain (scale score 7-10)) 2 Days Qty: 8 0RF insulin lispro [Humalog KwikPen Insulin] 100 unit/mL Insulin Pen See Protocol subcut ACHS Qty: 0 0RF Protocol: 5. Sliding Scale Insulin High Dosing Condition: 150-209 mg/dl = 3 units Condition: 210-259 mg/dl = 6 units Condition: 260-324 mg/dl = 9 units Condition: 325-374 mg/dl = 12 units Condition: 375-409 mg/dl = 14 units Condition: 410-449 mg/dl = 16 units Condition: Greater than 449 call physician Protocol Text: Suggested for: - Patients on Total Daily Insulin Dose of 81-120 units - Very insulin resistant patients HIGH DOSING ALGORITHM insulin glargine-yfgn 100 unit/mL (3 mL) Insulin Pen 20 unit subcut DAILY Qty: 0 0RF Continued pantoprazole 40 mg tablet,delayed release (DR/EC) 40 mg PO DAILY clopidogrel 75 mg Tablet 75 mg PO DAILY Qty: 30 0RF Patient Comments: patient stated pretty sure I still take that sacubitril-valsartan [Entresto] 24-26 mg Tablet 1 tab PO BID 30 Days Qty: 60 0RF atorvastatin 80 mg tablet 80 mg PO QHS gabapentin 300 mg Capsule 300 mg PO TID tizanidine 4 mg tablet 4 mg PO 3XD midodrine 2.5 mg tablet 2.5 mg PO DAILY escitalopram oxalate 20 mg tablet 20 mg PO DAILY sennosides-docusate sodium [Stimulant Laxative Plus] 8.6-50 mg Tablet 2 tab PO BID PRN (Reason: constipation) polyethylene glycol 3350 [Miralax] 17 gram/dose powder 17 g PO BID PRN (Reason: constipation) acetaminophen 500 mg Tablet 1,000 mg PO Q8 Qty: 0 0RF sennosides-docusate sodium [Stimulant Laxative Plus] 8.6-50 mg Tablet 2 tab PO BID Qty: 60 0RF metoclopramide HCl [Reglan] 10 mg tablet 10 mg PO Q6H PRN (Reason: nausea and vomiting) 5 Days Qty: 20 0RF cholecalciferol (vitamin D3) 1,250 mcg (50,000 unit) tablet 1,250 mcg PO WE DIC 2%/RINKU 6%/LIDOC 2% IN saltsable cream 1 - 2 pump subdermal Q6H PRN (Reason: FOR FEET) ergocalciferol (vitamin D2) [Vitamin D2] 1,250 mcg (50,000 unit) Capsule 1,250 mcg PO We@1000 Qty: 0 0RF nystatin 100,000 unit/gram Powder 1 applic topical TID Qty: 0 0RF Protocol: *Topical Application Instructions APPLICATION INSTRUCTIONS: UNDER alok BREAST oxycodone 5 mg Tablet 5 mg PO Q4H PRN PRN (Reason: pain 4-10) 3 Days Qty: 12 0RF OXYGEN - Supplemental ([facility] INFORMATIONAL USE ONLY) Patient Comments: 2 LPM @ HS Rx Instructions: As Directed Discontinued aspirin 81 mg Capsule 81 mg PO DAILY furosemide 20 mg tablet 20 mg PO DAILY spironolactone 25 mg tablet 25 mg PO DAILY 30 Days Qty: 0 0RF insulin glargine [Lantus Solostar U-100 Insulin] 100 unit/mL (3 mL) insulin pen subcut Patient Comments: PT STATES USES LANTUS ON A SLIDING SCALE ONLY BUT UNSURE OF WHAT THAT IS insulin lispro [Humalog KwikPen Insulin] 100 unit/mL insulin pen 27 unit subcut DAILY Patient Comments: 20U IN THE AM AND 27U PM PER PT insulin lispro [Humalog KwikPen Insulin] 100 unit/mL Insulin Pen 20 unit subcut DAILY Protocol: 5. Sliding Scale Insulin High Dosing Condition: 150-209 mg/dl = 3 units Condition: 210-259 mg/dl = 6 units Condition: 260-324 mg/dl = 9 units Condition: 325-374 mg/dl = 12 units Condition: 375-409 mg/dl = 14 units Condition: 410-449 mg/dl = 16 units Condition: Greater than 449 call physician Protocol Text: Suggested for: - Patients on Total Daily Insulin Dose of 81-120 units - Very insulin resistant patients HIGH DOSING ALGORITHM Patient Comments: 20U IN THE AM AND 27U PM PER PT Referrals / Follow Up: Alli Brito MD [Med Staff - Active Staff, Cardiology] - Within 1 Month Zohreh Pratt, [employer]ERSON[employer] [Primary Care Provider, Family Practice] - Within 1 Week Disposition Disposition (needs filled in before D/C Order can be placed): [facility] Facility
--- NOTE | 2025-04-20 12:09 | CASEMGMT ---
Discharge Planning Discharge orders, signed med list, and transport time sent via [facility] to [facility]. Physicians will transport pt by wheelchair at 12:30p. Nursing, SW, pt, and her daughter (Ashlee) updated. Arelis Ngo DC Planning Asst.
[2025-04-20 12:18] VITALS: BP 143/71; PULSE 88; RESP 18; TEMP 36.5; O2SAT 94
--- NOTE | 2025-04-20 12:52 | PHA.DC_ITS ---
Pharmacy [place] Med Reconciliation Pharmacy Service has performed discharge medication reconciliation for this patient. The patient's discharge medication list was reviewed for discrepancies and discrepancies were resolved. Medications at Discharge Home Medications clopidogrel 75 mg tablet 75 mg PO DAILY anti platelet #30 tabs 02/03/23 pantoprazole 40 mg tablet,delayed release 40 mg PO DAILY reflux 04/18/23 sacubitril 24 mg-valsartan 26 mg tablet (Entresto) 1 tab PO BID .bp 30 days #60 tabs 05/07/23 atorvastatin 80 mg tablet 80 mg PO QHS cholesterol 12/29/23 gabapentin 300 mg capsule 300 mg PO TID nerve pain 12/29/23 DIC 2%/RINKU 6%/LIDOC 2% IN saltsable 1 - 2 pump subdermal Q6H PRN FOR FEET 02/14/24 cholecalciferol (vitamin D3) 1,250 mcg (50,000 unit) tablet 1,250 mcg PO WE supplement 02/14/24 ergocalciferol (vitamin D2) 1,250 mcg (50,000 unit) capsule (Vitamin D2) 1,250 mcg PO We@1000 #0 caps 02/19/24 escitalopram oxalate 20 mg tablet 20 mg PO DAILY depression 06/29/24 midodrine 2.5 mg tablet 2.5 mg PO DAILY blood pressure 06/29/24 polyethylene glycol 3350 17 gram/dose oral powder (Miralax) 17 g PO BID PRN constipation 06/29/24 sennosides 8.6 mg-docusate sodium 50 mg tablet (Stimulant Laxative Plus) 2 tab PO BID PRN constipation 06/29/24 tizanidine 4 mg tablet 4 mg PO 3XD spasm 06/29/24 acetaminophen 500 mg tablet 1,000 mg (2 x 500 mg) PO Q8 #0 tabs 09/02/24 sennosides 8.6 mg-docusate sodium 50 mg tablet (Stimulant Laxative Plus) 2 tab PO BID #60 tabs 09/16/24 metoclopramide HCl 10 mg tablet (Reglan) 10 mg PO Q6H PRN nausea and vomiting 5 days #20 tabs 09/21/24 nystatin 100,000 unit/gram topical powder 1 applic topical TID #0 grams 02/11/25 OXYGEN - Supplemental ([facility] INFORMATIONAL USE ONLY) Pulmonary Information 10/29/25 apixaban 5 mg tablet (Eliquis) 5 mg PO BID #60 tabs 04/11/25 carvedilol 6.25 mg tablet 6.25 mg PO BIDCM #60 tabs 04/11/25 empagliflozin 10 mg tablet (Jardiance) 10 mg PO DAILY #30 tabs 04/11/25 furosemide 40 mg tablet 40 mg PO DAILY #30 tabs 04/11/25 spironolactone 50 mg tablet 50 mg PO DAILY #30 tabs 04/11/25 insulin glargine-yfgn 100 unit/mL (3 mL) subcutaneous pen 20 unit (0.2 mL) subcut DAILY #0 mL 04/20/25 insulin lispro 100 unit/mL subcutaneous pen (Humalog KwikPen (U-100) Insulin) See Protocol subcut ACHS #0 mL 04/20/25 melatonin 3 mg tablet 3 mg PO QHS PRN PRN Insomnia #0 tabs 04/20/25 oxycodone 5 mg tablet 5 mg PO Q6H PRN pain (scale score 7-10) 2 days #8 tabs 04/20/25
--- NOTE | 2025-04-20 16:02 | DS.PCM_ITS ---
Providers Date of Admission: 03/30/25 Primary Care Physician: RUTH Lawrence, ACCREDITED PHARMACY TECHNICIAN-C Consultations 03/30/25 15:45 Consult: Terminal Make Up Operator / Pulmonary Medicine Routine Consulting Provider: [facility] Reason for Consult: Vent management EMERGENT Consult: No MD Notified: Yes Date Notified: 03/30/25 Time Notified: 16:54 Method of Notification: Text 03/30/25 17:26 Consult: Cardiology Routine Consulting Provider: Abdirizak Fajardo Reason for Consult: acute on chronic HFrEF w/ worsened EF and wall motion abnormal EMERGENT Consult: No MD Notified: Yes Date Notified: 03/31/25 Time Notified: 07:42 Method of Notification: Verbal 04/03/25 09:18 Consult: Infectious Disease Routine Consulting Provider: Dominguez Mcneil Reason for Consult: MRSA in sputum, pneumonia, on vanc EMERGENT Consult: No MD Notified: Yes Date Notified: 04/03/25 Time Notified: 09:18 Method of Notification: Text 04/03/25 11:14 Consult: Gastroenterology Routine Consulting Provider: [facility] Reason for Consult: Intractable nausea vomiting since yesterday after extubation EMERGENT Consult: No MD Notified: Yes Date Notified: 04/03/25 Time Notified: 11:14 Method of Notification: Verbal Reason For Visit: ACUTE HYPOXIC RESPIRATORY FAILURE Diagnosis Discharge Diagnosis (1) Acute on chronic HFrEF (heart failure with reduced ejection fraction): Status: Chronic Code(s): I50.23 - Acute on chronic systolic (congestive) heart failure (2) Oropharyngeal dysphagia: Status: Acute Code(s): R13.12 - Dysphagia, oropharyngeal phase Plan Acute hypoxic respiratory failure due to bilateral PE, ac elizabeth HFrEF and pneumonia * Now weaned off of BiPAP. Had a protracted hospital course which required him to be intubated and admitted to the ICU. She was eventually extubated onto nasal cannula oxygen and is now on room air. * On Eliquis. Also on Lasix. * On room air Acute bilateral PE * CT chest showed partially occlusive thrombus within the proximal right lower lobe pulmonary arteries and partly occlusive clot visible to the right upper lobe pulmonary vessels and nonocclusive clot visible in the left upper lobe proximal branch vessels with diffuse patchy interstitial and alveolar infiltrates with peripheral wedge-shaped consolidation with severe the bases. * on eliquis Acute on chronic heart failure with reduced ejection fraction: * Has known EF of 20% with moderately enlarged left atrium, moderate mitral valve insufficiency and trivial pericardial effusion. * On Aldactone and furosemide. Cardiology on board. * on carvedilol and entresto and empagliflozin, spironolatone * BP running low today so blood pressure medications held. MRSA pneumonia * Had modified barium swallow which showed soft tissue excretions on phrenoesophageal region. She had EGD after GI was consulted and EGD showed moderately severe erosive esophagitis with no bleeding and benign-appearing esophageal stenosis which was dilated as well as medium size hiatal hernia and chronic gastritis which was biopsied with no gross lesions in the entire examined duodenum * On pantoprazole. 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 Last A1c was 13.2 on 01/29/2025. On Lantus. Insulin sliding scale. Accu-Cheks ACHS. She did develop hypoglycemia during this admission. Lantus therefore decreased. * Hyperlipidemia: On statin * History of peripheral artery disease: Had stents placed in the lower extremities about a year ago. On dual antiplatelet therapy and high intensity statin * Chronic hypotension: On midodrine but this was held on admission. Resume as needed * Chronic back pain due to chronic compression fractures: PT OT on board. On pain meds as needed. * Chronic anemia: Monitor hemoglobin and transfuse if hemoglobin is less than 7. * History of depression with anxiety: On escitalopram * Vitamin D deficiency: On vitamin D supplementation DVT prophylaxis: Not indicated as patient on Eliquis. Disposition: Patient finally excepted for [facility] facility placement Medications at Discharge Home Medications clopidogrel 75 mg tablet 75 mg PO DAILY anti platelet #30 tabs 02/03/23 pantoprazole 40 mg tablet,delayed release 40 mg PO DAILY reflux 04/18/23 sacubitril 24 mg-valsartan 26 mg tablet (Entresto) 1 tab PO BID .bp 30 days #60 tabs 05/07/23 atorvastatin 80 mg tablet 80 mg PO QHS cholesterol 12/29/23 gabapentin 300 mg capsule 300 mg PO TID nerve pain 12/29/23 DIC 2%/RINKU 6%/LIDOC 2% IN saltsable 1 - 2 pump subdermal Q6H PRN FOR FEET 02/14/24 cholecalciferol (vitamin D3) 1,250 mcg (50,000 unit) tablet 1,250 mcg PO WE supplement 02/14/24 ergocalciferol (vitamin D2) 1,250 mcg (50,000 unit) capsule (Vitamin D2) 1,250 mcg PO We@1000 #0 caps 02/19/24 escitalopram oxalate 20 mg tablet 20 mg PO DAILY depression 06/29/24 midodrine 2.5 mg tablet 2.5 mg PO DAILY blood pressure 06/29/24 polyethylene glycol 3350 17 gram/dose oral powder (Miralax) 17 g PO BID PRN constipation 06/29/24 sennosides 8.6 mg-docusate sodium 50 mg tablet (Stimulant Laxative Plus) 2 tab PO BID PRN constipation 06/29/24 tizanidine 4 mg tablet 4 mg PO 3XD spasm 06/29/24 acetaminophen 500 mg tablet 1,000 mg (2 x 500 mg) PO Q8 #0 tabs 09/02/24 sennosides 8.6 mg-docusate sodium 50 mg tablet (Stimulant Laxative Plus) 2 tab PO BID #60 tabs 09/16/24 metoclopramide HCl 10 mg tablet (Reglan) 10 mg PO Q6H PRN nausea and vomiting 5 days #20 tabs 09/21/24 nystatin 100,000 unit/gram topical powder 1 applic topical TID #0 grams 02/11/25 OXYGEN - Supplemental ([facility] INFORMATIONAL USE ONLY) Pulmonary Information 04/01/25 apixaban 5 mg tablet (Eliquis) 5 mg PO BID #60 tabs 04/11/25 carvedilol 6.25 mg tablet 6.25 mg PO BIDCM #60 tabs 04/11/25 empagliflozin 10 mg tablet (Jardiance) 10 mg PO DAILY #30 tabs 04/11/25 furosemide 40 mg tablet 40 mg PO DAILY #30 tabs 04/11/25 spironolactone 50 mg tablet 50 mg PO DAILY #30 tabs 04/11/25 insulin glargine-yfgn 100 unit/mL (3 mL) subcutaneous pen 20 unit (0.2 mL) subcut DAILY #0 mL 04/20/25 insulin lispro 100 unit/mL subcutaneous pen (Humalog KwikPen (U-100) Insulin) See Protocol subcut ACHS #0 mL 04/20/25 melatonin 3 mg tablet 3 mg PO QHS PRN PRN Insomnia #0 tabs 04/20/25 oxycodone 5 mg tablet 5 mg PO Q6H PRN pain (scale score 7-10) 2 days #8 tabs 04/20/25 Hospital Course Procedures 2-D Echocardiogram Weight / BMI Weight Weight: 86.7 kg Body Mass Index (BMI) 30.7 ABG / Lab / Microbiology Data 04/15/25 10:31 04/19/25 08:05 Laboratory: Laboratory Results - last 24 hr 04/19/25 16:33: POC Glucose 273 H 04/19/25 21:11: POC Glucose 217 H 04/20/25 07:39: POC Glucose 234 H 04/20/25 10:07: POC Glucose 289 H Microbiology: Microbiology 03/30/25 11:20 Blood Culture (Wb) - Left Wrist Blood Culture - Final No growth in 5 days. 03/30/25 11:00 Blood Culture (Wb) - Chest Blood Culture - Final No growth in 5 days. 03/30/25 16:00 Sputum, Induced/[place] Gram Stain - Final 03/30/25 16:00 Sputum, Induced/[place] Respiratory Culture - Final Staphylococcus aureus 03/30/25 11:46 Urine, Catheterized Urine Culture - Final Culture exhibits no growth. 03/31/25 08:30 Nasal Secretion MRSA (PCR) - Final 03/30/25 11:46 Urine Catheter - [place] Legionella Antigen - Final 03/30/25 11:46 Urine Catheter - [place] Streptococcus pneumoniae Antigen (M - Final 03/30/25 10:41 Mucosa - Nose SARS-CoV-2, Influenza & RSV (PCR) - Final D/C Instructions DC O2, CPAP, BIPAP Needs Home O2 Discharge instructions: No Meaningful Use Info Meaningful Use Meaningful Use Diagnoses (Choose all that apply): None applicable Discharge Plan Admission Admit Date/Time: 03/30/25 13:57 Primary Reason for Your Visit: acute respiratory failure Attending Provider: Riccardo Shaikh Primary Care Provider: Zohreh Pratt [facility] Consulting Providers: Jonas Justin; Morro Aaron; Abdirizak Fajardo; Jeremy Alexander; Jeevan De Jesus; Evelyne Salvador; Griselda Huynh; Bina Saldana; Dominguez Mcneil; Talisha Boykin Instructions Patient Instructions: Coping with Heart Failure Discharge Orders/Prescriptions Prescriptions: New furosemide 40 mg Tablet 40 mg PO DAILY Qty: 30 2RF carvedilol 6.25 mg Tablet 6.25 mg PO BIDCM Qty: 60 2RF spironolactone 50 mg Tablet 50 mg PO DAILY Qty: 30 1RF Eliquis 5 mg Tablet 5 mg PO BID Qty: 60 2RF Jardiance 10 mg Tablet 10 mg PO DAILY Qty: 30 2RF melatonin 3 mg Tablet 3 mg PO QHS PRN PRN (Reason: Insomnia) Qty: 0 0RF oxycodone 5 mg Tablet 5 mg PO Q6H PRN (Reason: pain (scale score 7-10)) 2 Days Qty: 8 0RF insulin lispro [Humalog KwikPen Insulin] 100 unit/mL Insulin Pen See Protocol subcut ACHS Qty: 0 0RF Protocol: 5. Sliding Scale Insulin High Dosing Condition: 150-209 mg/dl = 3 units Condition: 210-259 mg/dl = 6 units Condition: 260-324 mg/dl = 9 units Condition: 325-374 mg/dl = 12 units Condition: 375-409 mg/dl = 14 units Condition: 410-449 mg/dl = 16 units Condition: Greater than 449 call physician Protocol Text: Suggested for: - Patients on Total Daily Insulin Dose of 81-120 units - Very insulin resistant patients HIGH DOSING ALGORITHM insulin glargine-yfgn 100 unit/mL (3 mL) Insulin Pen 20 unit subcut DAILY Qty: 0 0RF Continued pantoprazole 40 mg tablet,delayed release (DR/EC) 40 mg PO DAILY clopidogrel 75 mg Tablet 75 mg PO DAILY Qty: 30 0RF Patient Comments: patient stated pretty sure I still take that sacubitril-valsartan [Entresto] 24-26 mg Tablet 1 tab PO BID 30 Days Qty: 60 0RF atorvastatin 80 mg tablet 80 mg PO QHS gabapentin 300 mg Capsule 300 mg PO TID tizanidine 4 mg tablet 4 mg PO 3XD midodrine 2.5 mg tablet 2.5 mg PO DAILY escitalopram oxalate 20 mg tablet 20 mg PO DAILY sennosides-docusate sodium [Stimulant Laxative Plus] 8.6-50 mg Tablet 2 tab PO BID PRN (Reason: constipation) polyethylene glycol 3350 [Miralax] 17 gram/dose powder 17 g PO BID PRN (Reason: constipation) acetaminophen 500 mg Tablet 1,000 mg PO Q8 Qty: 0 0RF sennosides-docusate sodium [Stimulant Laxative Plus] 8.6-50 mg Tablet 2 tab PO BID Qty: 60 0RF metoclopramide HCl [Reglan] 10 mg tablet 10 mg PO Q6H PRN (Reason: nausea and vomiting) 5 Days Qty: 20 0RF cholecalciferol (vitamin D3) 1,250 mcg (50,000 unit) tablet 1,250 mcg PO WE DIC 2%/RINKU 6%/LIDOC 2% IN saltsable cream 1 - 2 pump subdermal Q6H PRN (Reason: FOR FEET) ergocalciferol (vitamin D2) [Vitamin D2] 1,250 mcg (50,000 unit) Capsule 1,250 mcg PO We@1000 Qty: 0 0RF nystatin 100,000 unit/gram Powder 1 applic topical TID Qty: 0 0RF Protocol: *Topical Application Instructions APPLICATION INSTRUCTIONS: UNDER alok BREAST OXYGEN - Supplemental ([facility] INFORM[facility] USE ONLY) Patient Comments: 2 LPM @ HS Rx Instructions: As Directed Discontinued aspirin 81 mg Capsule 81 mg PO DAILY furosemide 20 mg tablet 20 mg PO DAILY spironolactone 25 mg tablet 25 mg PO DAILY 30 Days Qty: 0 0RF insulin glargine [Lantus Solostar U-100 Insulin] 100 unit/mL (3 mL) insulin pen subcut Patient Comments: PT STATES USES LANTUS ON A SLIDING SCALE ONLY BUT UNSURE OF WHAT THAT IS insulin lispro [Humalog KwikPen Insulin] 100 unit/mL insulin pen 27 unit subcut DAILY Patient Comments: 20U IN THE AM AND 27U PM PER PT insulin lispro [Humalog KwikPen Insulin] 100 unit/mL Insulin Pen 20 unit subcut DAILY Protocol: 5. Sliding Scale Insulin High Dosing Condition: 150-209 mg/dl = 3 units Condition: 210-259 mg/dl = 6 units Condition: 260-324 mg/dl = 9 units Condition: 325-374 mg/dl = 12 units Condition: 375-409 mg/dl = 14 units Condition: 410-449 mg/dl = 16 units Condition: Greater than 449 call physician Protocol Text: Suggested for: - Patients on Total Daily Insulin Dose of 81-120 units - Very insulin resistant patients HIGH DOSING ALGORITHM Patient Comments: 20U IN THE AM AND 27U PM PER PT Referrals / Follow Up: Alli Brito MD [Med Staff - Active Staff, Cardiology] - Within 1 Month Zohreh Pratt ACCREDITED PHARMACY TECHNICIAN-C [Primary Care Provider, Family Practice] - Within 1 Week Disposition Disposition (needs filled in before D/C Order can be placed): Long Term Facility Charges/Coding Visit Charges Inpatient E&M: 34587 Disch Hosp
== END 2025-04-20 12:57 | disposition skilled nursing facility (03) | DRG 720 ==
LOC: ED 13:51 → ICU 14:11 → PCU 04-04 11:33
PROVIDERS: Family Medicine; Internal Medicine; Internal Medicine Critical Care Medicine; Internal Medicine Gastroenterology; Internal Medicine Infectious Disease; Student in an Organized Health Care Education/Training Program; Admitting Provider Hospitalist; Emergency Provider Student in an Organized Health Care Education/Training Program; PCP Nurse Practitioner Family
PROC: 0DJ08ZZ Inspection of Upper Intestinal Tract, Via Natural or Artificial Opening Endoscopic (ICD-10-PCS; CPT 43235; principal; 2025-04-06 13:55)
DX: A41.02 Sepsis due to Methicillin resistant Staphylococcus aureus (principal); I26.99 Other pulmonary embolism without acute cor pulmonale; I50.23 Acute on chronic systolic (congestive) heart failure; J96.01 Acute respiratory failure with hypoxia; J15.212 Pneumonia due to Methicillin resistant Staphylococcus aureus; J90 Pleural effusion, not elsewhere classified; E11.43 Type 2 diabetes mellitus with diabetic autonomic (poly)neuropathy; D64.9 Anemia, unspecified; I11.0 Hypertensive heart disease with heart failure; I34.0 Nonrheumatic mitral (valve) insufficiency; I73.9 Peripheral vascular disease, unspecified; E66.811 Obesity, class 1; I24.89 Other forms of acute ischemic heart disease; M48.56XA Collapsed vertebra, not elsewhere classified, lumbar region, initial encounter for fracture; E87.20 Acidosis, unspecified; E11.51 Type 2 diabetes mellitus with diabetic peripheral angiopathy without gangrene; I25.5 Ischemic cardiomyopathy; F41.9 Anxiety disorder, unspecified; Z79.4 Long term (current) use of insulin; F17.210 Nicotine dependence, cigarettes, uncomplicated; E78.5 Hyperlipidemia, unspecified; I25.10 Atherosclerotic heart disease of native coronary artery without angina pectoris; E55.9 Vitamin D deficiency, unspecified; K31.84 Gastroparesis; K21.00 Gastro-esophageal reflux disease with esophagitis, without bleeding; E11.65 Type 2 diabetes mellitus with hyperglycemia; I95.89 Other hypotension; E87.6 Hypokalemia; E11.649 Type 2 diabetes mellitus with hypoglycemia without coma; K44.9 Diaphragmatic hernia without obstruction or gangrene; G62.9 Polyneuropathy, unspecified; K29.50 Unspecified chronic gastritis without bleeding; K22.2 Esophageal obstruction; E11.42 Type 2 diabetes mellitus with diabetic polyneuropathy; N17.9 Acute kidney failure, unspecified; F12.90 Cannabis use, unspecified, uncomplicated; Z68.33 Body mass index [BMI] 33.0-33.9, adult; Z86.718 Personal history of other venous thrombosis and embolism; Z79.02 Long term (current) use of antithrombotics/antiplatelets; Z83.3 Family history of diabetes mellitus; Z86.711 Personal history of pulmonary embolism; Z79.01 Long term (current) use of anticoagulants; R13.12 Dysphagia, oropharyngeal phase; N28.1 Cyst of kidney, acquired; M85.80 Other specified disorders of bone density and structure, unspecified site; K22.10 Ulcer of esophagus without bleeding; G89.29 Other chronic pain; Z90.49 Acquired absence of other specified parts of digestive tract; D35.01 Benign neoplasm of right adrenal gland; D35.02 Benign neoplasm of left adrenal gland; R13.19 Other dysphagia
CPT/HCPCS: 31500; 31720; 36415; 36569; 36600; 51702; 71045; 71275; 74176; 74230; 80048; 80053; 80202; 81001; 82550; 82803; 82962; 83605; 83735; 83880; 84100; 84132; 84145; 84478; 84484; 85025; 85610; 85730; 87040; 87070; 87077; 87086; 87186; 87205; 87449; 87631; 87641; 88305; 92526; 92610; 92611; 93005; 93306; 93970; 94002; 94003; 94640; 94660; 94668; 94762; 94799; 97110; 97116; 97163; 97167; 97530; 97535; 97802; 97803; 99252; 99285; Q9957; A4216; C1769; C8929; G0463; J1938; J2405

== ENCOUNTER 2025-05-19 17:43 | Inpatient (IN) | payer MEDICAID, SELFPAY ==
[2025-05-19 18:02] VITALS: BP 148/68; PULSE 114; RESP 16; TEMP 36.7; O2SAT 99; BMI 30.4
--- NOTE | 2025-05-19 18:30 | CT_ITS ---
PROCEDURE: ABDOMEN/PELVIS W IV CONT ONLY 05/19/2025 REASON FOR EXAM: LOWER ABD PAIN, V/D TECHNIQUE: Procedure Code: [id number] Modality: CT Procedure: ABDOMEN/PELVIS W IV CONT ONLY Coronal and Sagittal reconstruction series were provided. CONTRAST: 100 cc of Isovue 370 One or more dose reduction techniques were used (e.g., Automated exposure control, adjustment of the mA and/or kV according to patient size, use of iterative reconstruction technique. COMPARISON: CT abdomen and pelvis 04/03/2025. FINDINGS: Lung bases: Unremarkable. Liver: Mildly enlarged measuring 18.5 cm craniocaudally. Mild diffuse hepatic steatosis. No obvious hepatic mass. Gallbladder: Surgically absent. No biliary ductal dilatation. Spleen: Normal size. Pancreas: Normal size without evidence of mass surrounding inflammation or ductal dilation. Adrenals: Redemonstrated bilateral adrenal nodules measuring 1.6 x 1.4 cm on the right and 1.7 x 1.5 cm on the left. Kidneys: Stable left renal cyst measures 2.3 x 2.5 cm. Bladder: Unremarkable. Reproductive Organs: Normal uterine size and contour. Ovaries are unremarkable. Bowel: Colonic diverticulosis without diverticulitis. No bowel obstruction. Appendix: Surgically absent. Lymph nodes: Unremarkable. Vasculature: Moderate atherosclerotic calcifications. No aneurysm. Peritoneum / Retroperitoneum: No free fluid or air. Bones: Degenerative changes of the spine. Stable compression deformities of L3, L4, and L5, most pronounced at L3 with greater than 50% height loss. CT/Abdomen/Pelvis W IV Cont ONLY IMPRESSION: 1. No acute findings in the abdomen or pelvis. 2. Mild hepatomegaly and mild diffuse hepatic steatosis. 3. Redemonstrated cholecystectomy and appendectomy. 4. Stable bilateral adrenal nodules. 5. Redemonstrated compression deformities of L3, L4, and L5. Reading [facility]
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
[2025-05-19] MEDS: 0.9% Normal Saline (500mL Bag) 500 ML IV (19:16)
[2025-05-19 19:46] LABS: SITE Not entered; VBG BASE EXCESS -6 mmol/L (-1.0-3.5); VBG PO2 27 mmHg (25-40); VBG SO2 46 % (50-70); VBG TCO2 22 mmol/L (23-33)
[2025-05-19 19:46] LABS: Lipase 69 U/L (13-75)
[2025-05-19 19:49] LABS: Hematocrit 29.9 % (37-47); Hemoglobin 10.0 g/dL (12.0-15.0); Immature Granulocytes Count 0.040 X10^3/uL (0.0-0.0); Mean Corp Hgb Conc 33.4 g/dL (32-36); Mean Corpuscular Volume 81.0 fL (81-99); Mean Platelet Vol. 9.6 fl (6.2-12.0); NRBC Flagged by Analyzer 0 % (0-5); Platelet Count 232 K/mm3 (150-450); RBC Distribution Width CV 12.4 % (11.6-14.6); RBC Distribution Width SD 36.7 fl (35.1-43.9); Red Blood Count 3.69 M/mm3 (4.2-5.4); White Blood Count 10.8 K/mm3 (4.4-11.0)
[2025-05-19 19:53] LABS: AST(SGOT) 22 U/L (<=31); Alanine Aminotransfer ALT/SGPT 16 U/L (<=34); Albumin, Serum 4.0 g/dL (3.5-5.0); Alkaline Phosphatase 138 U/L (35-104); Anion Gap 15 (5-15); BUN 33 mg/dL (4-19); BUN/Creat Ratio 27.8 RATIO (10-20); Calcium,Total 9.7 mg/dL (7.6-11.0); Carbon Dioxide 18.7 mmol/L (21.0-32.0); Chloride 94 mmol/L (98-108); Estimated Creatinine Clearance 61.33 ml/min (50-250); Globulin 3.5 g/dL (2.2-4.2); Glucose 482 mg/dL (70-99); Potassium 3.5 mmol/L (3.3-5.1)
[2025-05-19 20:00] VITALS: BP 137/62; PULSE 105; O2SAT 98
[2025-05-19] MEDS: Insulin NPH Human 100 UNITS/ML PEN 10 UNITS SC ×2 (20:20→23:45)
--- NOTE | 2025-05-19 21:08 | ED.RN ---
Pt refusing to attempt giving a urinal or stool sample
--- NOTE | 2025-05-19 21:52 | ED.RN ---
Lab called to come redraw lactic
[2025-05-19 22:00] VITALS: BP 132/77; PULSE 102; O2SAT 100
[2025-05-19 22:12] LABS: Reflex Lactate? Y
[2025-05-19 22:26] LABS: Anion Gap 13 (5-15); BUN 32 mg/dL (4-19); BUN/Creat Ratio 31.3 RATIO (10-20); Calcium,Total 9.2 mg/dL (7.6-11.0); Carbon Dioxide 18.6 mmol/L (21.0-32.0); Chloride 96 mmol/L (98-108); Estimated Creatinine Clearance 70.35 ml/min (50-250); Glucose 432 mg/dL (70-99); Potassium 3.6 mmol/L (3.3-5.1)
[2025-05-19 23:16] VITALS: BP 127/72; PULSE 101; RESP 18; TEMP 37.1; O2SAT 95
--- OUTSIDE RECORDS SUMMARY | 2025-05-19 23:34 | XMS RPT_ITS | CCD ---
Author Organization [facility] Care Team Providers Care Road Production General Manager Name Role Phone FERCHO OSBORNE Admitting Unavailable DEX HANDY () Attending Unavailable WHIT, JEVON Lozada Consulting Unavailable PROVIDER, ALMA DELIA Attending Unavailable LISA BOCANEGRA Admitting Unavailable PHAN, LO PICKERING Referring Unavailabl e ALYSA, JASVIR Lozada Consulting Unavailable FREDO MORROW Attending Unavailable LISA BOCANEGRA Admitting Unavailable CONKLEZOHREH Referring Unavailable ROMAN, LEI HDZ Attending Unavailable BREANATORITO MONCADA Consulting Unavailab MARY Merlos Attending Unavailable Unknown, Pcp Unavailable Unavailable Moomaw, Alex I Unavailable Unavailable RICCARDO MCLAIN Attending Unavailable RICCARDO MCLAIN Referring Unavailable Dr. Nathaly Lainez Primary Care Provider [phone] Dr. Nathaly Lainez Referring Provider [phone] MARTIN Stephen Attending Provider [phone] Dr. Alli Brito Attending Provider [phone] MARTIN Montero Attending Provider [phone] Dr. Riccardo Ng Attending Provider [phone] Dr. Riccardo Ng Referring Provider [phone] Dr. Riccardo Ng Other Provider [facility] Nathaly Lainez Primary Care Pro vider Dr. Nathaly Lainez Primary Care Provider Dr. Nathaly Lainez Referring Provider Cirot MARTIN PA Jevon Attending Provider Dr. Alli Brito Attending Provider MARTIN Montero Attending Provider [phone] Dr. Riccardo Ng Attending Provider Dr. Riccardo Ng Referring Provider [phone] Riccardo Ng Other Provider [facility], [place] Primary Care Pro vider Dr. Nathaly Lainez Primary Care Provider Dr. Nathaly Lainez Referring Provider [facility], Nathaly Lainez Referring Provid er MD Jeremiah Rawls Emergency Provider Dr. Jeison Forde Admit Provider Dr. Jeison Forde Other Provider Dr. Sabina Rosenberg Attending Provider Dr. Sabina Rosenberg Other Provider Dr. Sanjiv Alcantar Attending Provider Dr. Jeison Forde Referring Provider JEISON FORDE DPM Attending Unavailable PHYSICIAN, NONE Primary Care Unavailable Del SALAZAR PA Veda Referring Provider Dr. Nathaly Lainez Primary Care Provider Dr. Nathaly Lainez Referring Provider Del SALAZAR, PA Veda Attending Provider Dr. Riccardo Ng Attending Provider Dr. Riccardo Ng Referring Provider [phone] Riccardo Ng Other Provider [facility], Nathaly Lainez Primary Care Pro vider MARTIN Montero Referring Provider [facility], [place] Referring Provid er MD Jeremiah Rawls Emergency Provider Dr. Jeison Forde Admit Provider Dr. Jeison Forde Referring Provider Dr. Jeison Forde Other Provider Dr. Sabina Rosenberg Attending Provider Dr. Saibna Rosenberg Other Provider Dr. Sanjiv Alcantar Attending Provider MARTIN Mathis Attending Provider MARTIN Mathis Referring Provider Dr. Yvette Hanley Referring Provider [facility] Pro vider Dr. Riccardo Ng Attending Provider Dr. Yvette Hanley Referring Provider MARTIN Mathis Referring Provider Dr. Yvette Hanley Emergency Provider Dr. Sabina Rosenberg Admit Provider Dr. Sabina Rosenberg Attending Provider TerDr. Sabina hammond Other Provider [facility] Care Pro vider Dr. Zack Card Emergency Provider Dr. Brandon Adames Admit Provider Dr. Brandon Adames Attending Provider Dr. Brandon Adames Other Provider [facility] Pro vider Dr. Yvette Hanley Emergency Provider Dr. Sabina Rosenberg Admit Provider Dr. Sabina Rosenberg Attending Provider Dr. Sabina Rosenberg Other Provider Dr. Zack Card Emergency Provider Dr. Brandon Adames Admit Provider Dr. Brandon Adames Attending Provider Dr. Brandon Adames Other Provider [facility], [facility] Referring Provid er Dr. Alli Brito Attending Provider Roof NON LICENSED NUCLEAR PLANT OPERATOR, NON LICENSED NUCLEAR PLANT OPERATOR-C Juancarlos Rashid Attending Provider Dr. Lino Sousa Attending Provider [facility] Primary Care Pro vider Dr. Yvette Hanley Emergency Provider Dr. Sabina Rosenberg Admit Provider Dr. Sabina Rosenberg Attending Provider Dr. Sabina Rosenberg Other Provider [facility] Primary Care Pro vider Dr. Sabina Rosenberg Attending Provider Dr. Sabina Rosenberg Other Provider Dr. Ananda Coyle Emergency Provider Dr. Lei Justin Admit Provider Dr. Lei Justin Other Provider Dr. Alli Brito Other Provider Dr. Brenda Posadas Other Provider Dr. Brenda Posadas Attending Provider Dr. Latricia Aaron Attending Provider Unavailable Dr. Latricia Aaron Other Provider Unavailable Dr. Lei Justin Referring Provider [facility], [facility] Primary Care Pro vider Dr. Riccardo Hillman Emergency Provider Dr. Talisha Boykin Admit Provider Korjaycee, Dr. Talisha Landry Other Provider Dr. Jeremy Alexander Attending Provider Dr. Jeremy Alexander Other Provider Dr. Moody Gallagher Other Provider Ashutosh, Dr. Talisha Landry Attending Provider Dr. Jeremy Alexander Attending Provider [facility] Primary Care Pro vider Dr. Ananda Coyle Emergency Provider Dr. Lei Jsutin Admit Provider [phone] Dr. Lei Justin Other Provider [phone] Dr. Alli Brito Other Provider Dr. Brenda Posadas Attending Provider Dr. Brenda Posadas Other Provider Dr. Alli Brito Attending Provider Dr. Latricia Aaron Attending Provider Unavailable Dr. Latricia Aaron Other Provider Unavailable Dr. iRccardo Hillman Emergency Provider Korjaycee, Dr. Talisha Landry Admit Provider Koram, Dr. Talisha Landry Attending Provider Ashutosh, Dr. Talisha Landry Other Provider Dr. Jeremy Alexander Other Provider Dr. Jeremy Alexander Attending Provider Dr. Moody Gallagher Other Provider Terence NON LICENSED NUCLEAR PLANT OPERATOR, Zohreh Unavailable [facility], [facility] Care Provider [facility] Primary Care Pro vider [facility], [facility] Care Provider No, Pcp Primary Care Provider Cadence PEARSON MD, BRITTANEY Sue Primary Care Physician [phone] MICHEL HERNANDEZ, BRITTANEY Sue Primary Care Unavailable DARIEL SANCHEZ, DR RAYMUNDO Springer Attending Unavailabl e IBETH ALEJANDRO Consulting Unavailable [facility], [facility] Care Unavailable LASH-RITTER, TATIANA A Admitting Unavailab le LASH-RITTER, TATIANA A Attending Unavailab le [facility], [facility] Care Unavailable MUAKKASSA, FARID ANU Admitting Unavailabl e MUAKKASSA, FARID ANU Attending Unavailabl e DIYA MAY Consulting Unavailable [facility], [facility] Primary Care Pro vider Jeremiah Rawls MD Emergency Provider Ronnie SANCHEZ, Dr. Rivera Admit Provider Ronnie SANCHEZ, Dr. Rivera Other Provider Benjamin HERNANDEZ, Dr. Luna Other Provider Ashutosh HERNANDEZ, Dr. Talisha Landry Attending Provider Dr. Talisha Boykin MD Other Provider Dr. Davis Ibarra DO Emergency Provider Dr. Brenda Posadas MD Admit Provider Dr. Brenda Posadas MD Other Provider Dr. Nicole Trujillo DO Attending Provider Tarun HERNANDEZ, Dr. Mix Other Provider Dr. Nicole Trujillo DO Referring Provider Terence NON LICENSED NUCLEAR PLANT OPERATOR-CZohreh Primary Care Provider Dr. Riccardo Hillman DO Attending Provider Dr. Riccardo Hillman DO Emergency Provider Dr. Riccardo Ng MD Attending Provider Dr. Vaughn Daugherty DO Emergency Provider Cuauhtemoc HERNANDEZ, Dr. Gutierrez Attending Provider [facility] [place] [facility] Primary Care Pro vider Dr. Nicole Trujillo DO Other Provider Willow SANCHEZ, Dr. Mendes Emergency Provider Berenice HERNANDEZ, Dr. Gu Other Provider Agnieszka HERNANDEZ, Dr. Hooker Attending Provider Unavaila [facility] Agnieszka HERNANDEZ, Dr. Hooker Other Provider Unavailable Daryl HERNANDEZ, Dr. Carson Attending Provider Dr. Jeison Abrams DO Referring Provider Berenice HERNANDEZ, Dr. Gu Referring Provider Stephie SANCHEZ, Dr. Dixon Emergency Provider Rosa Maria HERNANDEZ, Dr. Rosaura Springer Admit Provider Rosa Maria HERNANDEZ, Dr. Rosaura Srpinger Attending Provider Stephie SANCHEZ, Dr. Dixon Attending Provider Dr. Rosaura Crane MD Other Provider Cuauhtemoc HERNANDEZ, Dr. Gutierrez Attending Provider Chandni HERNANDEZ, Dr. Amish Bashir Other Provider Terence NON LICENSED NUCLEAR PLANT OPERATOR-C, [facility] Care Provider Cuauhtemoc HERNANDEZ, Dr. Gutierrez Admit Provider Cuauhtemoc HERNANDEZ, Dr. Gutierrez Other Provider Dr. Nicole Trujillo DO Other Provider Dr. Nicole Trujillo DO Attending Provider Dr. Davis Ibarra DO Emergency Provider [phone] Nichelle Mcneil MD Other Provider Dr. Riccardo Hillman DO Attending Provider Dr. Riccardo Hillman DO Emergency Provider Siva HERNANDEZ, Dr. Reed Referring Provider Dr. Derek Paniagua MD Emergency Provider Terence NON LICENSED NUCLEAR PLANT OPERATOR-C, [facility] Provider Siva HERNANDEZ, Dr. Reed Attending Provider Siva HERNANDEZ, Dr. Reed Referring Provider Siva HERNANDEZ, Dr. Reed Emergency Provider Tanya SANCHEZ, Dr. Mack Emergency Provider de Gennaro DO, Dr. Hooker Admit Provider Unavail able de Gennaro DO, Dr. Hooker Attending Provider Unav ailable Terence NON LICENSED NUCLEAR PLANT OPERATOR-C, [facility] Provider Siva HERNANDEZ, Dr. Reed Attending Provider Tanya SANCHEZ, Dr. Mack Emergency Provider de Gennaro DO, Dr. Hooker Admit Provider Unavail able de Gennaro DO, Dr. Hooker Attending Provider Unav ailable de Gennaro DO, Dr. Hooker Other Provider Unavail able Dr. Nicole Trujillo DO Attending Provider Ronnie SANCHEZ, Dr. Rivera Other Provider Dr. Lei Justin DO Attending Provider Dr. Lei Justin DO Other Provider Dr. Riccardo Shaikh DO Attending Provider [phone] Ashutosh HERNANDEZ, Dr. Talisha Landry Other Provider Ashutosh HERNANDEZ, Dr. Talisha Landry Attending Provider Dr. Riccardo Shaikh DO Other Provider [facility] Unavailabl e Nichelle Mcneil Referring Unavailable Nichelle Mcneil Attending Unavailable [facility] Unavailmir e Derek Paniagua Referring Unavailable Derek Paniagua Attending Unavailable Brenda Posadas Admitting Unavailable [facility] Unavailable Nicole Trujillo Attending Unavailable Brenda Posadas Consulting Unavailable Nichelle Mcneil Consulting Unavailable Lei Justin Admitting Unavailable Lei Justin Consulting Unavailable [facility] Unavailabl e Talisha Boykin Attending Unavailable Latricia Aaron Consulting Unavailable ScottyAbdirizak roland Consulting Unavailable Jeremy Alexander Consulting Unavailable Friend, Jeevan Consulting Unavailable Evelyne Salvador Consulting Unavailable Griselda Huynh Consulting Unavailable Bina Saldana Consulting Unavailable Nichelle Mcneil Consulting Unavailable [facility] Unavailabl e Nichelle Mcneil Attending Unavailable Nichelle Mcneil Referring Unavailable [facility] Unavailabl e Nichelle Mcneil Referring Unavailable Nichelle Mcneil Attending Unavailable Nicole Trujillo Referring Unavailable Nicole Trujillo Attending Unavailable [facility] Unavailabl e Nichelle Mcneil Attending Unavailable [facility] Unavailabl e Nichelle Mcneil Referring Unavailable Zack Card Attending Unavailable [facility] Nicole Trujillo Referring Unavailable Nicole Trujillo Attending Unavailable [facility] Unavailabl e Nicole Trujillo Attending Unavailable Nicole Trujillo Referring Unavailable [facility] Unavailabl e Nicole Trujillo Attending Unavailable Nicole Trujillo Referring Unavailable [facility] Unavailabl e Nicole Trujillo Attending Unavailable Nicole Trujillo Referring Unavailable Zack Card Attending Unavailable [facility] Unavailabl e [facility] Unavailabl e Nicole Trujillo Attending Unavailable Nicole Trujillo Referring Unavailable [facility] Unavailmir e Nichelle Mcneil Referring Unavailable Nichelle Mcneil Attending Unavailable [facility] Unavailabl e Nichelle Mcneil Referring Unavailable Nichelle Mcneil Attending Unavailable Lei Justin Attending Unavailable [facility] Unavailmir e Latricia Yao Admitting Unavailable Latricia Yao Consulting Unavailable Nicole Trujillo Consulting Unavailable Lei Justin Consulting Unavailable Lei Justin Attending Unavailable [facility] Unavailmir e Latricia Yao Admitting Unavailable Latricia Yao Consulting Unavailable Nicole Trujillo Consulting Unavailable Lei Justin Consulting Unavailable Talisha Boykin Attending Unavailable Talisha Boykin Consulting Unavailable [facility] Unavailable Nicole Trujillo Consulting Unavailable Nicole Trujillo Admitting Unavailable Talisha Boykin Attending Unavailable Benjamin Jeremy Consulting Unavailable Rosie Boykina Gris Consulting Unavailable Rosaura Crane Admitting Unavailable Rosaura Crane Consulting Unavailable Latricia Aaron Attending Unavailable Terence Zohreh Meneses Primary Care UnavailNichelle Holly Consulting Unavailable Brenda Posadas Consulting Unavailable Amish Tariq Consulting Unavailable Latricia Aaron Referring Unavailable Brittaney Ernandez Consulting Unavailable Brendan Marinelli Attending Unavailable Basilio Rawls Consulting Unavailable Cale Hernandez Consulting Unavailable Brendan Marinelli Consulting Unavailable Latricia Conway Consulting Unavailable Kiarra Clifton Consulting Unavailable Allan Cody Consulting Unavailable Yodit Charles Consulting Unavailable Sanju Moreno Consulting Unavailable Deborah Artis Consulting UnavailJean-Pierre Taveras Consulting Unavailable Anoop Mckeon Consulting Unavailable Evelin Garcia Consulting Unavailable Alex Teixeira Consulting UnavailMode Miller Consulting Unavailable Conor Yo Consulting Unavailable Maddy Brooks Consulting Unavailable Susie Padilla Consulting Unavailable Zuleyma Wolf Consulting Unavailable Mary Jane Perez Consulting Unavailable Sin Mustafmaggie Consulting UnavailSabina Lock Consulting Unavailable Baljit, Billy Consulting Unavailable Heather Antonio Consulting Unavailable Cierra Shepherd Consulting Unavailable Gina Dent Consulting Unavailable Abimael, Billy Consulting Unavailable Brandon Hoyt Consulting Unavailable Marcos, Yaya Consulting Unavailable King Leroy Consulting Unavailable Amanuel Figueroa Consulting Unav ailable Luke, Chele Consulting Unavailable Dhesi, Prasad Consulting Unavailable Aranza Asher Consulting Unavailable Joaquin Padilla Consulting Unavailable Kimberley Keys Consulting Unavailable Shahla Conroy Consulting Unavailable Benjamin Charlton Consulting Unavailable Moose Causey Consulting Unavailable Danny Gallego Consulting Unavailable Vince Lemos Consulting Unavailable Noreen Fatima Consulting UnavailRoberto Shepherd Consulting Unavailable Sarah Woods NP Consulting Unavailable Bhumi Mccain Consulting Unavailable Alli Brito Attending Unavailable Jeremy Alexander Attending Unavailable Jeevan De Jesus Attending Unavailable Benjamin, Jeremy Referring Unavailable Shailesh Ledesma Attending Unavailable Latricia Aaron Attending Unavailable Abdirizak Fajardo Attending Unavailable Patriciaam, Talisha Gris Consulting Unavailable [facility] Unavailabl e Abdirizak Fajardo Attending Unavailable Nicole Trujillo Referring Unavailable Nicole Trujillo Attending Unavailable [facility], [facility] Unavailabl e [facility], [facility] UnavailNichelle Holly Referring Unavailable Nichelle Mcneil Attending Unavailable [facility], [facility] Care Unavailable Nicole Trujillo Consulting Unavailable Jenae Trujillohryn Admitting Unavailable Koram, Talisha Gris Attending Unavailable Benjamin, Jeremy Consulting Unavailable [facility], [facility] Unavailmir e Brenda Posadas Consulting Unavailable Brenda Posadas Admitting Unavailable Latricia Aaron Attending Unavailable Riccardo Ng Consulting Unavailable Nicole Trujillo Consulting Unavailable [facility], [facility] UnavailRiccardo Hutchinson Attending Unavailable Riccardo Shaikh Attending Unavailable [facility] UnavailLatricia Terrazas Consulting Unavailable Latricia Yao Admitting Unavailable Nicole Trujillo Consulting Unavailable Lei Justin Consulting Unavailable Koram, Talisha Gris Consulting Unavailable Nicole Trujillo Referring Unavailable Nicole Trujillo Attending Unavailable [facility], [facility] UnavailLei Jamison Referring Unavailable Riccardo Ng Attending Unavailable [facility], [facility] UnavailRiccardo Hutchinson Attending Unavailable [facility] Unavailabl e [facility], [facility] Unavailabl e Alli Brito Attending Unavailable [facility], [facility] Unavailabl [facility] Referring Unavailable Bina Saldana Attending Unavailable [facility] UnavailRiccardo Bourne Attending Unavailable Jeison Abrams Referring Unavailable Rosaura Crane Admitting Unavailable Rosaura Crane Consulting Unavailable Latricia Aaron Attending Unavailable [facility], [facility] UnavailNichelle Holly Consulting Unavailable Cuauhtemoc Brenda Consulting Unavailable Amish Tariq Consulting Unavailable Latricia Aaron Consulting Unavailable Brenda Posadas Consulting Unavailable [facility] Unavailable Nicole Trujillo Attending Unavailable Brenda Posadas Admitting Unavailable Nicole Trujillo Consulting Unavailable Nichelle Mcneil Consulting Unavailable Nicole Trujillo Attending Unavailable Nicole Trujillo Attending Unavailable Posadas, Brenda Admitting Unavailable Riccardo Ng Consulting Unavailable [facility] Unavailabl e Posadas, Brenda Consulting Unavailable Nicole Trujillo Consulting Unavailable Riccardo Shaikh Attending Unavailable Riccardo Shaikh Consulting Unavailable Lei Justin Attending Unavailable Brenda Posadas Consulting Unavailable Posadas, Brenda Admitting Unavailable Brenda Posadas Attending Unavailable [facility] UnavailRiccardo Bourne Attending Unavailable Riccardo Ng Referring Unavailable Jeremy Alexander Attending Unavailable Brenda Posadas Attending Unavailable Brenda Posadas Attending Unavailable Rosaura Crane Admitting Unavailable Rosaura Crane Consulting Unavailable [facility] Unavailmir e Cuauhtemoc, Brenda Consulting Unavailable Latricia Aaron Attending Unavailable Latricia Aaron Consulting Unavailable Cuauhtemoc Brenda Admitting Unavailable [facility] Unavailable Brenda Posadas Attending Unavailable Brenda Posadas Consulting Unavailable Rosaura Crane Attending Unavailable Latricia Yao Attending Unavailable Nicole Trujillo Attending Unavailable [facility] UnavailNichelle Holly Referring Unavailable Nichelle Mcneil Attending Unavailable Allergies Allergy Classification Reported Allergen(s) Allergy Type Date of Onset Reaction(s) Facility (20 sources) Latex; Translations: [LATEX] Propensity to adverse reactions to drug (disorder) 1 Itching [facility] Other [place] [facility] Medications Current Medications Medication Drug Class(es) Dates Sig (Normalized) Sig (Original) [id number] 200 actuat albuterol 0.09 mg/actuat metered dose inhaler (11 sources) beta2-Adrenergic Agonist Start: 01-14-2018 take 2 puff(s) by inhalation every four hours as needed for wheezing VENTOLIN HFA 90 mcg/actuation inhaler Inhale 2 Puffs as instructed every 4 hours as needed for Wheezing/Shortnes s of Breath. 18 g 01/14/2018 Active Start: [...] 4 mg/ml oral suspension (1 source) Start: 020 take 30 mL by mouth every six hours as needed magnesium hydroxide/aluminum hydroxide/simethico ne 200 mg-200 mg-20 mg/5 mL oral suspension ; 30 milliliter(s) orally every 6 hours, As needed, Dyspepsia Quantity: 0 Refills: 0 Ordered: 21-Aug-2019 Sara Willis Start: 21-Aug-2019 Status: Discontinued Generic Substitution Allowed Aspirin (20 sources) Platelet Aggregation Inhibitor, Nonsteroidal Anti-inflammatory Drug Start: 023 take 1 capsule by mouth once daily Aspirin 81 mg Capsule Active 81 mg PO DAILY August 10, 2022 1:00am Tagged Start: 08-10-2022 Start: 12-09-2017 take 1 tablet by gurvinder th once daily aspirin, enteric coated (ASPIRIN, ENTERIC COATED) 81 mg EC tablet Take 1 tablet by mouth once daily. 30 tablet 2 12/09/2017 Active take 1 tablet by gurvinder th once daily aspirin 81 mg oral tablet, chewable ; 1 tab(s) orally once a day Quantity: 0 Refills: 0 Ordered: 29-Sep-2019 AlleyFrancisca pelayo Generic Substitution Allowed Comment on above: Take [...] days Quantity: 21 Refills: 0 Ordered: 13-Aug-2021 Alex Tapia I [...] days Quantity: 21 Refills: 0 Ordered: 04-Aug-2019 Alex Tapia I Start: 04-Aug-2019 End: 10-Aug-2019 Status: Discontinued Generic Substitution Allowed Comments: Finish all this medication unless otherwise directed by prescriber. Comment on above: Finish all this medi cation unless otherwise directed by prescriber. Cholecalciferol (20 sources) Vitamin D Start: 02-14-2024 Cholecalciferol (Vitamin D3) 1,250 mcg (50,000 unit) tablet Active 1250 ug PO WE February 14, 2024 12:00am supplement Start: 12-29-2023 End: 02-14-2024 take 31842 [IU] by mouth every week cholecalciferol (vitamin D3) Discontinued 61013 U PO EVERY WEEK December 29, 2023 12:00am February 14, 2024 3:50pm Start: 07-25-2022 End: 12-29-2023 Comment on above: Take 1,000 Units by mouth once daily. DIC 2%/RINKU 6%/LIDOC 2% IN saltsable cream (1 source) Start: 02-14-2024 DIC 2%/RINKU 6%/LIDOC 2% IN saltsable cream Active 1 - 2 NMA subdermal EVERY 6 HOURS as needed for FOR FEET February 14, 2024 12:00am docusate sodium 50 mg / sennosides, retirement 8.6 mg oral tablet (20 sources) Start: 09-16-2024 Start: 02-17-2024 End: 06-29-2024 Start: 02-17-2024 End: 06-29-2024 Sennosides-Docusate Sodium (Stimulant Laxative Plus) 8.6-50 mg Tablet Active 2 {tbl} PO TWICE A DAY 60 0 September 16, 2024 12:00am Start: 09-07-2023 take 1 tablet by gurvinder th twice daily senna-docusate (SENNA-S) 8.6-50 mg per tablet Take 1 tablet by mouth two times a day. 09/07/2023 Active Comment on above: Take 1 tablet by gurvinder th two times a day. ergocalciferol 1.25 mg oral capsule (11 sources) Provitamin D2 Compound Start: 02-19-2024 Start: 02-19-2024 Ergocalciferol (Vitamin D2) (Vitamin D2) 1,250 mcg (50,000 unit) Capsule Active 1250 ug PO We@1000 0 0 February 19, 2024 12:00am escitalopram 20 mg oral tabl et (20 [...] tablet (1 source) Histamine-2 Receptor Antagonist Start: take 1 tablet by mouth twice daily famotidine 20 mg oral tablet ; 1 tab(s) orally 2 times a day Quantity: 0 Refills: 0 Ordered: 21-Aug-2019 Sara Willis Start: 21-Aug-2019 Status: Discontinued Generic Substitution Allowed furosemide 20 mg oral tablet (20 sources) Loop Diuretic Start: Start: 02-03-2023 End: 02-17-2024 Start: 02-03-2023 End: 02-17-2024 take 1 tablet by mouth twice daily Furosemide 40 mg Tablet Discontinued 40 mg PO TWICE DAILY 60 0 May 07, 2023 1:00am December 29, 2023 12:51pm Start: 01-03-2023 End: 02-28-2023 Start: 01-03-2023 End: 02-28-2023 take 2 tablets by mouth once daily Furosemide (Lasix) 20 mg tablet Discontinued 40 mg PO DAILY 60 0 February 03, 2023 3:34pm February 28, 2023 11:15am diuretic Start: 09-30-2019 End: 10-29-2019 take 1 tablet [...] week 0 04/12/2022 Active 3 ml insulin lispro 100 unt/ml pen injector (20 sources) Insulin Analog Start: 02-11-2025 Start: 12-29-2023 End: 02-11-2025 Start: 12-29-2023 Insulin Lispro 100 unit/mL insulin pen, half-unit Active 1 sliding scale dose SC 3 TIMES DAILY WITH MEALS December 29, 2023 12:00am glucose Start: 11-14-2023 End: 11-19-2023 Start: 08-05-2021 insulin [...] 2022 1:00am lidocaine 0.05 mg/mg medicated patch (7 sources) Antiarrhythmic, Amide Local Anesthetic Start: 09-16-2024 LORazepam 0.5 mg oral tablet (1 source) Benzodiazepine Start: 08-21-2019 take 1 tablet by mouth every six hours as needed LORazepam 0.5 mg oral tablet ; 1 tab(s) orally every 6 hours, As needed, acute anxietyDX: F41.1 Quantity: 10 Refills: 0 Ordered: 21-Aug-2019 Sara Willis Start: 21-Aug-2019 Generic Substitution Allowed 24 hr metoprolol succinate 25 mg extended release oral tablet (2 sources) beta-Adrenergic Linda Start: 12-08-2017 take 1 tablet by mouth once daily metoprolol succinate XL (Toprol-XL) 25 MG 24 hr tablet Take 1 tablet by mouth Nightly. 0 12/08/2017 Active midodrine hydrochloride 2.5 mg oral tablet (20 sources) alpha-Adrenergic Agonist Start: 06-29-2024 Start: 11-14-2023 End: 04-25-2024 Start: 10-07-2023 End: 04-25-2024 take 1 tablet by mouth twice daily Midodrine 2.5 mg tablet Discontinued 2.5 mg PO TWICE A DAY November 14, 2023 12:00am April 25, 2024 1:39pm nystatin 100 unt/mg topical powder (18 sources) Polyene Antifungal Start: 02-11-2025 Start: 11-19-2023 End: 12-29-2023 Start: 11-19-2023 End: 12-29-2023 Nystatin (Nyamyc) 100,000 un it/gram Powder Discontinued 1 NMA TOPICAL TWICE A DAY 0 0 November 19, 2023 12:00am December 29, 2023 12:49pm Please contact the information source for Protocol details. Start: 03-27-2022 Nyamyc [id number] UNIT/GM powder APPLY THREE TIMES DAILY 0 03/27/2022 Active ondansetron 4 mg disintegrat ing oral tablet (20 sources) Serotonin-3 Receptor Antagonist Start: 09-05-2024 Start: 09-05-2024 take 1 tablet by gurvinder th every eight hours as needed for nausea Ondansetron 4 mg tablet,disintegrating Active 4 mg PO EVERY 8 HOURS NEEDED as needed for Nausea 10 0 September 05, 2024 12:00am Start: 06-29-2024 End: 09-07-2024 Start: 05-23-2024 End: 05-28-2024 Zofran 4 mg oral tablet Dose : 4 mg = 1 tab(s), Oral, q8h, X 5 day(s), # 15 tab(s), 0 Refill(s), 05/28/24 11:02:00 PM EST Start Date: 05/23/24 Stop Date: 05/28/24 Status: Ordered Quantity: 15.0 Unit: tab(s) Repeat number: 1 Start: 01-10-2024 End: 02-14-2024 Start: 01-10-2024 End: 02-14-2024 take 1 tablet by mouth every eight hours as needed for nausea Ondansetron 4 mg tablet,disintegrating Discontinued 4 mg PO EVERY 8 HOURS NEEDED as needed for Nausea 15 0 January 10, 2024 12:00am February 14, 2024 3:51pm Start: 06-19-2023 End: 11-14-2023 Start: 06-19-2023 End: 11-14-2023 take 1 tablet by mouth every eight hours as needed for nausea and vomiting Ondansetron 4 mg tablet,disintegrating Discontinued 4 mg PO Q8H as needed for nausea and vomiting 7 0 June 19, 2023 1:00am November 14, 2023 5:06pm Start: 05-22-2023 End: 06-13-2023 take 1 tablet by mouth every eight hours as needed for nausea Ondansetron 4 mg tablet,disintegrating Discontinued 4 mg PO EVERY 8 HOURS NEEDED as needed for Nausea 10 0 May 22, 2023 1:00am June 13, 2023 1:08am Start: 09-10-2022 End: 01-03-2023 take 1 tablet by mouth every eight hours as needed for nausea Ondansetron 4 mg tablet,disintegrating Discontinued 4 mg PO EVERY 8 HOURS NEEDED as needed for Nausea 10 0 September 18, 2022 12:00am January 03, 2023 10:19am Start: 05-10-2022 take 4 mg by mouth t hree times daily Ondansetron Active 4 MG PO THREE TIMES A DAY May 10, 2022 12:37am Start: 03-27-2022 take 4 mg by mouth e very six hours Ondansetron Hcl Active 4 MG PO EVERY 6 HOURS March 26, 2022 11:00pm Start: 08-26-2021 End: 08-09-2022 take 1 tablet by mouth every eight hours as needed for nausea Ondansetron 4 mg tablet,disintegrating Discontinued 4 mg PO EVERY 8 HOURS NEEDED as needed for Nausea 10 0 August 03, 2022 1:00am August 09, 2022 12:26pm Start: 07-01-2019 take 1 tablet by gurvinder th three times daily as needed for nausea Zofran ODT 4 mg oral tablet, disintegrating ; 1 tab(s) orally 3 times a day, As Needed for nausea/vomiting Quantity: 20 Refills: 0 Ordered: 01-Jul-2019 Sara Willis Start: 01-Jul-2019 Status: Discontinued Generic Substitution Allowed Start: 10-04-2018 End: 06-13-2023 Comment on above: Take 1 tablet by gurvinder th every 6 hours as needed. oseltamivir 75 mg oral capsule (2 sources) Neuraminidase Inhibitor Start: 05-10-20 take 1 capsule by mouth twice daily Oseltamivir (Tamiflu) 75 mg capsule Active 75 MG PO TWICE A DAY 10 May 10, 2022 12:00am oxyCODONE hydrochloride 5 mg oral tablet (20 sources) Opioid Agonist Start: 09-17-19 End: 02-12-20 Start: 09-02-2024 End: 09-05-2024 Start: 02-19-2024 End: 04-25-2024 Start: 02-19-2024 End: 04-25-2024 Oxycodone 5 mg tablet Discon tinued 2.5 - 5 mg PO EVERY 4 HOURS NEEDED as needed for Pain Score 4-10 7 3 0 February 19, 2024 April 25, 2024 1:39pm Closed compression fracture of L3 vertebra 2.5 mg for moderate pain 5 mg for severe pain respectively Start: 11-19-2023 End: 12-29-2023 Start: 11-19-2023 End: 12-29-2023 take 1 tablet by mouth every six hours as needed for pain Oxycodone 5 mg Tablet Discontinued 5 mg PO EVERY 6 HOURS NEEDED as needed for Pain Score 4-10 7 3 0 November 19, 2023 December 29, 2023 12:49pm Chronic pain Other chronic pain Start: 10-15-2023 End: 12-29-2023 Start: 01-03-2023 End: 02-02-2023 Start: 01-03-2023 End: 02-02-2023 take 2 tablets by mouth every six hours as needed for pain Oxycodone 5 mg Tablet Discontinued 10 mg PO EVERY 6 HOURS NEEDED as needed for Pain Score 6-10 20 4 0 January 03, 2023 February 02, 2023 3:46pm Pleurisy Pleurisy Start: 01-03-2023 End: 02-02-2023 take 10 mg by mouth every six hours as needed Oxycodone Discontinued 10 MG PO EVERY 6 HOURS NEEDED 20 4 January 03, 2023 February 02, 2023 3:46pm Start: 09-02-2022 End: 01-01-2023 Start: 09-02-2022 End: 01-01-2023 Oxycodone 5 mg Tablet Discon tinued 5 - 10 mg PO EVERY 6 HOURS as needed for Pain (Scale Score 7-10) 30 5 0 September 02, 2022 January 01, 2023 4:11pm Dry gangrene Gangrene, not elsewhere classified may take with 650 mg Tylenol four times a day Start: 09-02-2022 End: 01-01-2023 take 650 mg by mouth four times daily Oxycodone Discontinued 5 - 10 MG PO EVERY 6 HOURS 30 5 September 02, 2022 January 01, 2023 4:11pm may [...] water. 0 04/12/2022 Active polyethylene glycol 3350 24952 mg powder for oral solution (20 sources) Osmotic Laxative Start: 02-19-2024 End: 06-29-2024 Start: 09-07-2023 polyethylene g lycol 3350 17 gram packet Take 1 Packet by mouth once daily. Dissolve dose in 4 - 8 ounces of liquid and take as directed. 09/07/2023 Active Comment on above: Take 1 Packet by gurvinder once daily. Dissolve dose in 4 - 8 ounces of liquid and take as directed. prochlorperazine 5 mg oral tablet (20 sources) Phenothiazine Start: take 1 tablet by mouth every six [...] in the evening. 0 09/25/2018 Active sacubitril / valsartan (19 sources) Angiotensin 2 Receptor Linda Start: 05-07-20 23 Sacubitril-Valsart an (Entresto) 24-26 mg Tablet Active 1 {tbl} PO TWICE A DAY 60 30 0 May 07, 2023 1:00am . Start: 05-07-2023 take 1 tablet by gurvinder th twice daily ENTRESTO 24-26 mg tablet Take 1 tablet by mouth two times a day. 05/07/2023 Active Comment on above: Take 1 tablet by gurvinder th two times a day. spironolactone 25 mg oral ta blet (20 sources) Aldosterone Antagonist Start: 12-29-2023 End: 02-17-2024 Start: 12-29-2023 End: 02-17-2024 Spironolactone 25 mg tablet Discontinued 12.5 mg PO DAILY December 29, 2023 12:00am February 17, 2024 11:31am Start: 11-19-2023 End: 12-29-2023 Start: 11-14-2023 End: 11-19-2023 Start: 11-14-2023 End: 11-19-2023 Spironolactone 25 mg tablet Discontinued 12.5 mg PO DAILY November 14, 2023 12:00am November 19, 2023 12:44pm Start: 06-16-2023 End: 11-14-2023 Start: 06-16-2023 End: 11-14-2023 take 5 tablets by mouth once daily Spironolactone 50 mg Tablet Discontinued 50 mg PO DAILY 30 30 2 June 16, 2023 1:00am November 14, 2023 5:06pm Hold for hyperkalemia, serum potassium more than [...] of water. tiZANidine 4 mg oral tablet (11 sources) Central alpha-2 Adrenergic Agonist Start: 06-29-2024 (20 sources) Start: 02-11-2025 Start: 01-30-2025 End: 02-11-2025 Start: 02-14-2024 Start: 12-29-2023 End: 02-14-2024 Start: 11-19-2023 End: 12-29-2023 Start: 11-19-2023 End: 12-29-2023 Start: 06-16-2023 End: 11-14-2023 Start: 05-07-2023 Start: 02-27-2023 End: 06-16-2023 Completed/Discontinued Medications Medication Drug Class(es) Dates Sig (Normalized) Sig (Original) acetaminophen 325 mg oral tablet (20 sources) Start: 09-16-2024 End: 02-11-2025 Start: 09-02-2024 Start: 09-07-2023 take 3 tablets [...] on above: Take 3 tablets by mo uth every 6 hours as needed for pain. acetaminophen 325 mg / HYDRO codone bitartrate 5 mg oral tablet (20 sources) Opioid Agonist Start: 08-01-2024 End: 09-05-2024 Start: 08-01-2024 End: 09-05-2024 Hydrocodone-Acetaminophen 5- 325 mg tablet Discontinued 1 {tbl} PO EVERY 6 HOURS as needed for Pain August 26, 2024 12:00am September 05, 2024 10:33am Start: 04-18-2022 take 1 tablet by gurvinder th every six hours as needed HYDROcodone-acetaminophen ([place]) 5-325 MG tablet Take 1 tablet by mouth every 6 hours as needed. 0 04/18/2022 Active Start: 04-18-2022 take 1 tablet by gurvinder th every six hours Hydrocodone-Acetaminophen Active 1 TABLE T PO EVERY 6 HOURS 12 3 April 18, 2022 Start: 06-11-2019 End: 06-13-2019 [...] 1 tablet by mouth every eight hours as needed for pain Oxycodone-Acetaminophen (Percocet) 5-325 mg tablet Discontinued 1 {tbl} PO Q8H as needed for pain 14 5 0 May 26, 2023 June 13, 2023 1:08am Fracture of rib Fracture of one rib, unspecified side, initial encounter for closed fracture Start: 09-10-2022 End: 01-01-2023 Oxycodone-Acetaminophen (Per cocet) 5-325 mg tablet Discontinued 1 {tbl} PO Q8H as needed for pain 10 4 0 September 18, 2022 January 01, 2023 4:12pm Pain of right hip Pain in right hip Start: 09-05-2022 End: 01-01-2023 Start: 09-05-2022 End: 01-01-2023 Oxycodone-Acetaminophen 5-32 5 mg tablet Discontinued 1 {tbl} PO EVERY 6 HOURS NEEDED as needed for Pain 12 3 0 September 05, 2022 January 01, 2023 4:11pm Postoperative pain Other acute postprocedural pain Start: 09-05-2022 End: 01-01-2023 take 1 tablet by mouth every six hours as needed Oxycodone-Acetaminophen Discontinued 1 TABLET PO EVERY 6 HOURS NEEDED 12 September 05, 2022 January 01, 2023 4:11pm Start: 09-05-2022 Start: 08-14-2022 take 1 tablet by gurvinder th every six hours Oxycodone-Acetaminophen (Percocet) 5-325 mg tablet Active 1 TABLET PO EVERY 6 HOURS 12 August 14, 2022 Start: 04-24-2022 End: 04-26-2022 Start: 04-24-2022 End: 04-26-2022 take 1-2 tablets by mouth every six hours as needed for pain Oxycodone-Acetaminophen 5-325 mg tablet Discontinued 0 PO EVERY 6 HOURS as needed for pain 12 2 0 April 24, 2022 April 25, 2022 1:00am April 26, 2022 1:03am Fracture of proximal end of right humerus 1-2 tablets orally every 6 hours PRN; Start: 04-24-2022 End: 04-26-2022 take 1-2 tablets by mouth every six hours as needed Oxycodone-Acetaminophen Discontinued 0 P O EVERY 6 HOURS 12 2 April 24, 2022 April 26, 2022 1:03am 1-2 tablets orally every 6 hours PRN; Start: 04-24-2022 End: 04-26-2022 Start: 08-13-2021 take 1 tablet by gurvinder [...] Start: 08-21-2019 take 2 tablets by mo [facility] every four hours as needed oxycodone-acetaminophen 5 [...] 09-02-2022 End: 01-01-2023 Start: 09-02-2022 End: 01-01-2023 Amoxicillin-Pot Clavulanate 875-125 mg tablet Discontinued 1 {tbl} PO TWICE A DAY 15 0 September 02, 2022 12:00am January 01, 2023 4:09pm take with food, start with dinner tonite Start: 09-02-2022 End: 01-01-2023 take 1 tablet [...] at bedtime. baclofen 10 mg oral tablet (15 sources) gamma-Aminobutyric Acid-ergic Agonist Start: 11-19-2023 End: [...] 11-19-2023 End: 12-29-2023 Start: 08-09-2022 End: 11-14-2023 carvedilol 12.5 mg oral tablet (20 sources) alpha-Adrenergic Linda, beta-Adrenergic Linda Start: 01-10-2024 End: 02-19-2024 Start: 12-29-2023 End: 02-19-2024 Start: 12-29-2023 End: 02-19-2024 take 1 tablet by mouth twice daily Carvedilol 3.125 mg tablet Discontinued 3.125 mg PO TWICE A DAY December 29, 2023 12:00am February 19, 2024 11:35am blood pressure Start: 11-14-2023 End: 11-19-2023 Start: 11-14-2023 End: 11-19-2023 take 1 tablet by mouth twice daily Carvedilol 3.125 mg tablet Discontinued 3.125 mg PO TWICE A DAY November 14, 2023 12:00am November 19, 2023 12:39pm blood pressure Start: 05-07-2023 End: 12-29-2023 Start: 05-07-2023 End: 12-29-2023 take 1 tablet by mouth twice daily at mealtime Carvedilol 12.5 mg Tablet Discontinued 12.5 mg PO TWICE DAILY WITH MEALS 0 0 November 19, 2023 12:00am December 29, 2023 12:37pm Start: 03-22-2023 End: 05-07-2023 Start: 02-28-2023 End: 03-22-2023 Start: 02-28-2023 End: 03-22-2023 take 1 tablet by mouth twice daily at mealtime Carvedilol 12.5 mg tablet Discontinued 12.5 mg PO TWICE DAILY WITH MEALS 60 3 February 28, 2023 5:23pm March 22, 2023 1:56pm Start: 02-03-2023 End: 02-28-2023 Start: 09-02-2022 End: 02-03-2023 Start: 09-02-2022 End: 02-03-2023 take 1 tablet by mouth twice daily Carvedilol 3.125 mg Tablet Discontinued 3.125 mg PO TWICE A DAY 60 0 September 02, 2022 12:00am February 03, 2023 3:31pm blood pressure Comment on above: Take 12.5 mg by mout h two times a day. cilostazol 50 mg oral tablet (20 sources) Phosphodiesterase 3 Inhibitor Start: 08-09-2022 End: 01-03-2023 ciprofloxacin 500 mg oral ta blet (11 sources) Quinolone Antimicrobial Start: 04-29-2024 End: 06-29-2024 clopidogrel 75 mg oral table t (20 sources) P2Y12 Platelet Inhibitor Start: 08-09-2022 End: 02-27-2023 Comment on above: Take 75 mg by mouth once daily. cyclobenzaprine hydrochlorid e 5 mg oral tablet (11 sources) Muscle Relaxant Start: 01-01-2024 End: 02-17-2024 dapagliflozin 10 mg oral tab let (20 sources) Sodium-Glucose Cotransporter 2 Inhibitor Start: 03-26-2023 End: 04-25-2024 Comment on above: Take 10 mg by mouth once daily. 24 hr desvenlafaxine succina te 25 mg extended release oral tablet (20 sources) Serotonin and Norepinephrine Reuptake Inhibitor Start: 08-09-2022 End: 01-03-2023 Start: 08-09-2022 End: 01-03-2023 Desvenlafaxine Succinate 25 mg tablet extended release 24 hr Discontinued 1 NMA PO DAILY August 09, 2022 1:00am January 03, 2023 10:19am Start: 08-09-2022 End: 01-03-2023 Desvenlafaxine Succinate Dis [...] Active docusate sodium 100 mg oral capsule (12 sources) Start: 11-19-2023 End: 12-29-2023 Start: 07-01-2019 take 1 capsule by mo ut twice daily, then take 1 capsule by [...] GLP-1 Receptor Agonist Start: 02-02-2023 End: 06-13-2023 Dulaglutide (Trulicity) 3 mg/0.5 mL pen injector Discontinued 3 mg SC EVERY WEEK February 02, 2023 12:00am June 13, 2023 1:08am diabetes Start: 02-02-2023 End: 06-13-2023 Start: 02-02-2023 End: [...] SC EVERY WEEK February 02, 2023 12:00am ertapenem 1000 mg injection (7 sources) Penem Antibacterial Start: 09-16-2024 End: 02-11-2025 fluconazole 100 mg oral tabl et (11 sources) Azole Antifungal Start: 04-29-2024 End: 06-29-2024 gabapentin 400 mg oral capsu le (20 sources) Anti-epileptic Agent Start: 06-29-2024 End: 09-02-2024 Start: 05-22-2023 End: 12-29-2023 Start: 05-22-2023 End: 12-29-2023 take 1 capsule by mouth twice daily at mealtime Gabapentin 300 mg Capsule Discontinued 300 mg PO TWICE DAILY WITH MEALS 0 0 November 19, 2023 12:00am December 29, 2023 12:51pm Start: 02-27-2023 End: 02-28-2023 Start: 02-27-2023 End: 02-28-2023 Start: 08-14-2022 End: 01-01-2023 Start: 08-05-2021 take 100 mg by mouth [...] Start: 25-Jun-2019 End: 24-Jul-2019 Generic Substitution Allowed Comment on above: Take 300 mg by mouth three times daily. glimepiride 4 mg oral tablet (20 sources) Sulfonylurea Start: 08-09-2022 End: 03-26-2023 Start: 08-09-2022 End: 03-26-2023 take 1 tablet by mouth twice daily Glimepiride 4 mg tablet Discontinued 4 mg PO TWICE A DAY 60 0 February 03, 2023 12:00am February 27, 2023 4:32pm haloperidol 1 mg oral tablet (11 sources) Typical Antipsychotic Start: 07-03-2024 End: 09-05-2024 3 ml insulin glargine 100 unt/ml pen injector (20 sources) Insulin Analog Start: 02-19-2024 Insulin Glargi ne (Lantus Solostar U-100 Insulin) 100 unit/mL (3 mL) insulin pen Active 20 U SC EVERY EVENING 0 30 0 February 19, 2024 11:35am Hold if glucose less than 130 mg/dl Start: 12-29-2023 End: 02-11-2025 Start: 12-29-2023 End: 09-07-2024 Insulin Glargine (Lantus Tabby ostar U-100 Insulin) 100 unit/mL (3 mL) insulin pen Discontinued 25 U SC DAILY December 29, 2023 12:00am September 07, 2024 8:48pm dm Start: 12-29-2023 End: 02-19-2024 Insulin Glargine (Lantus Tabby ostar U-100 Insulin) 100 unit/mL (3 mL) insulin pen Discontinued 24 U SC EVERY EVENING December 29, 2023 12:00am February 19, 2024 11:35am Start: 11-14-2023 End: 11-19-2023 Start: 11-14-2023 End: 11-19-2023 Insulin Glargine (Lantus Tabby ostar U-100 Insulin) 100 unit/mL (3 mL) insulin pen Discontinued U SC November 14, 2023 12:00am November 19, 2023 12:42pm Start: 07-25-2022 End: 01-03-2023 Insulin Glargine (Lantus Tabby ostar U-100 Insulin) 100 unit/mL (3 mL) insulin pen Discontinued 10 U SC TWICE A DAY July 25, 2022 10:23am January 03, 2023 10:20am Start: 08-05-2021 End: 01-03-2023 Start: 08-05-2021 End: 07-25-2022 Insulin Glargine (Lantus Tabby ostar U-100 Insulin) 100 unit/mL (3 mL) Insulin Pen Discontinued 10 U SC AT BEDTIME 3 30 0 August 05, 2021 1:00am July 25, 2022 10:24am [...] 3 Refills: 0 Ordered: 25-Jun-2019 Sara Willis Gian Start: 25-Jun-2019 End: 24-Jul-2019 Status: Discontinued Generic [...] Glargine (Lantus U-100 Insulin) 100 unit/mL solution (18 sources) Start: 06-16-2023 End: 11-14-2023 Insulin Glargine (Lantus U-100 Insulin) 100 unit/mL solution Discontinued 20 U SC TWICE A DAY 03 05June 16, 2023 10:18am November 14, 2023 5:05pm diabetes Hold if glucose less than 130 mg/dl [...] 00 Insulin) 100 unit/mL solution Discontinued 25 U SC TWICE A DAY February 27, 2023 12:00am June 16, 2023 10:18am diabetes Start: 02-27-2023 End: 06-16-2023 Insulin Glargine (Lantus [...] TWICE A DAY February 26, 2023 11:00pm Insulin Glargine-Yfgn (20 sources) Start: 01-03-2023 End: 02-02-2023 Insulin Glargine-Yfgn 100 un it/mL (3 mL) Insulin Pen Discontinued 15 U SC TWICE A DAY 0 0 January 03, 2023 12:00am February 02, 2023 3:46pm Start: 01-03-2023 End: 02-02-2023 Start: 01-03-2023 End: [...] A DAY 0 January 03, 2023 12:00am Insulin Glargine-Yfgn 100 unit/mL (3 mL) Insulin Pen (1 source) Start: 11-19-2023 End: 12-29-2023 Insulin Glargine-Yfgn 100 unit/mL (3 mL) Insulin Pen Discontinued 20 U SC TWICE A DAY 0 0 November 19, 2023 12:00am December 29, 2023 12:48pm 100 ml levoFLOXacin 5 mg/ml injection (1 source) Quinolone Antimicrobial Start: 08-21-2019 End: 09-19-2019 take 500 mg intravenously once daily levoFLOXacin 500 mg/100 mL-D5% intravenous solution ; 500 milligram(s) intravenously once a day x 30 days Quantity: 30 Refills: 0 Ordered: 21-Aug-2019 Sara Willis Start: 21-Aug-2019 End: 19-Sep-2019 Status: Discontinued Generic [...] loperamide hydrochloride 2 m g oral capsule (11 sources) Opioid Agonist Start: 11-19-2023 End: 12-29-2023 losartan potassium 25 mg ora l tablet (20 sources) Angiotensin 2 Receptor Linda Start: 08-30-2022 End: 09-02-2022 Start: 04-12-2022 take 1 tablet by gurvinder th once daily losartan (Cozaar) 25 MG tablet take 1 by mouth every day 0 04/12/2022 Active Menthol / Zinc Oxide (1 source) Start: 11-19-2023 End: 12-29-2023 Menthol-Zinc Oxide (Calmoseptine) 0.44-20.6 % Ointment Discontinued 1 NMA TOPICAL TWICE A DAY 0 0 November 19, 2023 12:00am December 29, 2023 12:49pm Please contact the information source for Protocol details. metoclopramide 5 mg oral tablet (10 sources) Dopamine-2 Receptor Antagonist Start: 09-29-2024 End: 02-11-2025 Start: 09-21-2024 Start: 08-21-2019 take 1 tablet by gurvinder th three times daily before mealtime metoclopramide 10 mg oral tablet ; 1 tab(s) orally 3 times a day (before meals) Quantity: 0 Refills: 0 Ordered: 21-Aug-2019 Sara Willis Start: 21-Aug-2019 Status: Discontinued Generic Substitution Allowed metroNIDAZOLE 500 mg oral ta blet (11 sources) Nitroimidazole Antimicrobial Start: 04-29-2024 End: 06-29-2024 24 hr nicotine 0.583 mg/hr transdermal system (20 sources) Cholinergic Nicotinic Agonist Start: 02-19-2024 End: 04-25-2024 Start: 09-08-2023 nicotine (CARISSA DERM) 7 mg/24 hr Apply 1 Patch as directed once daily. 09/08/2023 Active Start: 09-02-2022 End: 12-29-2023 Start: 09-02-2022 Nicotine Activ e 21 MG TD DAILY September 02, 2022 12:00am Start: 06-25-2019 End: 07-24-2019 apply 1 dose [...] / nitrofurantoin, monohydrate 75 mg oral capsule (11 sources) Nitrofuran Antibacterial Start: 08-01-2024 End: 08-26-2024 nitroglycerin 0.02 mg/mg top ical ointment (20 sources) Nitrate Vasodilator Start: 08-09-2022 End: 09-02-2022 Start: 09-25-2018 nitroglycerin sublingual (NITROQUICK) 0.4 mg SL tablet Dissolve 1 tablet under the tongue every 5 minutes as needed for Chest Pain for up to 3 doses. 1 Bottle of 25 09/25/2018 Active Comment on above: Dissolve 1 tablet un dianelys the tongue every 5 minutes as needed for Chest Pain for up to 3 doses. omeprazole 40 mg delayed rel ease oral capsule (20 sources) Proton Pump Inhibitor Start: 02-03-2023 End: 04-18-2023 Start: 01-29-2023 End: 02-27-2023 Start: 07-25-2022 End: 01-29-2023 Start: 03-17-2019 take 1 capsule by [facility] in the morning omeprazole (PriLOSEC) 20 MG [...] [Unspecified abdominal pain] Onset: 3 01-15-2021 Episodic Anxiety disorders (20 sources) Anxiety disorder, unspecified; [...] Ischemic cardiomyopathy; Translations: [Atherosclerotic heart disease of [place] coronary artery without angina pectoris] Onset: 8 12-13-2020 Chronic Comment on above: EF 15% Delirium dementia and amnestic and other cognitive [...] depressive disorder, single episode, unspecified] Onset: 8 Nonspecific chest pain (20 sources) Chest pain, unspecified; Translations: [Chest pain] Onset: 8 12-30-2020 Episodic Other aftercare (2 sources) longterm (current) use of insulin; Translations: [longterm (current) use of insulin] Onset: 9 Episodic Other aftercare (20 sources) Surgical follow-up; Translations: [Encounter for surgical aftercare following surgery on the circulatory system] 09-12-2022 Episodic Other aftercare (15 sources) Long-term current use of anticoagulant; Translations: [equipment [employer] (current) use of anticoagulants] 06-19-2023 Episodic Other aftercare (12 sources) Wound ; Translations: [Encounter for other specified surgical aftercare] 10-15-2023 Episodic Other and ill-defined heart disease (10 sources) Mural thrombus of left ventricle; Translations: [Intracardiac thrombosis, not elsewhere classified] Onset: 9 09-25-2018 Chronic Other bone disease and musculoskeletal deformities (20 sources) Absence of toe; Translations: [Acquired absence of other toe(s), unspecified side] 01-13-2021 Episodic Comment on above: left toes removed Other circulatory disease (20 sources) History of cardiomyopathy; Translations: [Personal history of other diseases of the circulatory system] 05-03-2023 Episodic Other circulatory disease (20 sources) H/O: heart disorder; Translations: [Personal history [...] limb] 08-30-2022 Episodic Other connective tissue disease (17 sources) History of osteoporosis; Translations: [Personal history of other diseases of the musculoskeletal system and connective tissue] 06-03-2023 Episodic Other connective tissue disease (18 sources) Peripheral neuropathic pain; Translations: [Neuralgia and neuritis, unspecified] 08-27-2024 Episodic Other disorders of stomach and duodenum (5 sources) Cyclical vomiting syndrome; Translations: [Cyclical vomiting syndrome unrelated to migraine] 09-21-2024 Episodic Other fractures (20 sources) Fracture of rib; Translations: [Fracture of one rib, right side, initial encounter for closed fracture] 06-03-2023 Episodic Other fractures (14 sources) Fracture of right rib; Translations: [Fracture of one rib, right side, initial encounter for closed fracture] 06-03-2023 Episodic Other fractures (11 sources) Compression fracture of lumbar spine; Translations: [Wedge compression fracture of third lumbar vertebra, initial encounter for closed fracture] 02-27-2024 Episodic Other fractures (20 sources) Fracture of fifth lumbar vertebra; Translations: [Unspecified fracture of fifth lumbar vertebra, initial encounter for closed fracture] 01-09-2024 Episodic Other fractures (5 sources) Other specified fracture of unspecified pubis, initial encounter for closed fracture; Translations: [Fracture of pubic ramus] Onset: 5 01-29-2025 Episodic Other fractures (2 sources) Other specified fracture of right pubis, initial encounter for closed fracture; Translations: [Other specified fracture of right pubis, initial encounter for closed fracture] Onset: 5 Episodic Other gastrointestinal disorders (20 sources) Constipation; Translations: [Constipation, unspecified] Onset: 9 Resolved: 9 08-13-2021 Episodic Other gastrointestinal disorders (20 sources) Burping; Translations: [Eructation] 03-07-2014 Episodic Other gastrointestinal disorders (11 sources) Diarrhea; Translations: [Diarrhea, unspecified] 02-27-2024 Episodic Other gastrointestinal disorders (1 source) Other dysphagia; Translations: [Other dysphagia] Onset: 5 Episodic Other gastrointestinal disorders (1 source) Dysphagia, oropharyngeal phase; Translations: [Dysphagia, oropharyngeal phase] Onset: 5 Episodic Other injuries and conditions due to external causes (20 sources) Injury of left shoulder; Translations: [Unspecified injury of left shoulder and upper arm, initial encounter] 01-13-2021 Episodic Other lower respiratory disease (1 source) Chronic pulmonary edema; Translations: [Chronic pulmonary edema] Onset: 5 Chronic Other lower respiratory disease (20 sources) Dyspnea; Translations: [Dyspnea, unspecified] 01-01-2023 Episodic Other lower respiratory disease (20 sources) Hypoxemia; Translations: [Hypoxemia] 01-01-2023 Episodic Other lower respiratory disease (14 sources) Dyspnea, unspecified; Translations: [Other respiratory abnormalities] 01-01-2023 Episodic Other lower respiratory disease (20 sources) Hypoxia; Translations: [Hypoxemia] 02-02-2023 Episodic Other nervous system disorders (12 sources) Chronic pain; Translations: [Other chronic pain] 05-07-2024 Chronic Other nervous system disorders (3 sources) Left leg peripheral neuropathy; Translations: [Unspecified mononeuropathy of left lower limb] 12-12-2024 Chronic Other nervous system disorders (3 sources) Right leg peripheral neuropathy; Translations: [Unspecified mononeuropathy of right lower limb] 12-12-2024 Chronic Other nervous system disorders (4 sources) Walking disability; Translations: [Difficulty in walking, not elsewhere classified] 01-29-2025 Chronic Other nervous system disorders (1 source) Difficulty in walking, not elsewhere classified; Translations: [Difficulty in walking, not elsewhere classified] Onset: 5 Chronic Other nervous system disorders (20 sources) Postoperative pain ; Translations: [Other acute postprocedural pain] 09-05-2022 Episodic Other nervous system disorders (3 sources) History of clinical finding in subject; Translations: [Personal history of other diseases of the nervous system and sense organs] 12-12-2024 Episodic Other non-traumatic joint disorders (20 sources) Shoulder pain; Translations: [Pain in left shoulder] 04-26-2022 Episodic Other non-traumatic joint disorders (2 sources) Pain in right shoulder; Translations: [Pain in right shoulder] Onset: 2 Episodic Other non-traumatic joint disorders (20 sources) Hip pain; Translations: [Pain in right hip] 09-18-2022 Episodic Other non-traumatic joint disorders (20 sources) Pain in left shoulder; Translations: [Acute pain of left shoulder] 01-08-2021 Episodic Other nutritional; endocrine; and metabolic disorders (20 sources) H/O: diabetes mellitus; Translations: [Personal history of other endocrine, nutritional and metabolic disease] 08-16-2021 Episodic Other nutritional; endocrine; and metabolic disorders (4 sources) Body mass index 25-29 - overweight; Translations: [Overweight] 01-29-2025 Episodic Other nutritional; endocrine; and metabolic disorders (1 source) Overweight; Translations: [Overweight] Onset: 5 Episodic Other screening for suspected conditions (not [...] and due to atherosclerosis; Translations: [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, right leg] Onset: 5 08-09-2022 Chronic Pleurisy; pneumothorax; pulmonary collapse (20 sources) Pleural effusion; Translations: [Pleural effusion, not elsewhere classified] 01-01-2023 Episodic Pulmonary heart disease (1 source) Other pulmonary embolism without acute cor pulmonale; Translations: [Other pulmonary embolism without acute cor pulmonale] Onset: Episodic Residual codes; unclassified (20 sources) Hypersomnia; Translations: [Hypersomnia, unspecified] 03-22-2023 Chronic Residual codes; unclassified (8 sources) Hypersomnia, unspecified; Translations: [Hypersomnia, unspecified] 03-22-2023 Chronic Residual codes; unclassified (4 sources) Sleep apnea; Translations: [Sleep apnea, unspecified] 01-29-2025 Chronic Residual codes; unclassified (1 source) Sleep apnea, unspecified; Translations: [Sleep apnea, unspecified] Onset: Chronic Residual codes; unclassified (20 sources) H/O: gastrointestinal disease; Translations: [Personal history of other specified conditions] 09-11-2022 Episodic Residual codes; unclassified (4 sources) Severe pain; Translations: [Pain, unspecified] 01-29-2025 Episodic Residual codes; unclassified (4 sources) Tobacco user; Translations: [Tobacco use] 01-29-2025 Episodic Residual codes; unclassified (1 source) Pain, unspecified; Translations: [Pain, unspecified] Onset: Episodic Residual codes; unclassified (1 source) Tobacco use; Translations: [Tobacco use] Onset: 09-11-202 5 Episodic Respiratory failure; insufficiency; arrest (adult) (1 source) Acute respiratory failure with hypoxia; Translations: [Acute respiratory failure with hypoxia] Onset: 5 Episodic Skin and subcutaneous tissue infections (20 sources) Cellulitis of lower limb; Translations: [Cellulitis and abscess of leg, except foot] 08-13-2021 Episodic Spondylosis; intervertebral disc disorders; other back problems (9 sources) Prolapsed lumbar intervertebral disc; Translations: [Other intervertebral disc displacement, lumbar region] 09-05-2024 Chronic Spondylosis; intervertebral disc disorders; other back problems (19 sources) Lumbago co-occurrent with right-side sciatica; Translations: [Lumbago with sciatica, right side] Onset: 7 02-20-2017 Episodic Sprains and strains (20 sources) Sprain of [...] source) Fracture of third lumbar vertebra 02-22-2024 Past or Other Problems Problem Classification Problem Date Documented Da te Episodic/Chronic Acute and unspecified renal failure (4 sources) Acute renal failure syndrome; Translations: [Acute kidney failure, unspecified] Onset: 4 10-18-2023 Episodic Cardiac dysrhythmias (13 sources) Tachycardia; Translations: [Tachycardia, unspecified] Onset: 4 [...] skin and nail] Onset: 4 04-04-2022 Episodic Nausea and vomiting (20 sources) Diarrhea and vomiting; Translations: [Vomiting, unspecified] Onset: 4 12-30-2020 Episodic Noninfectious gastroenteritis (20 sources) Colitis; Translations: [Noninfective gastroenteritis and colitis, unspecified] Onset: 5 01-18-2021 Episodic Other circulatory disease (10 sources) Low blood pressure; Translations: [Hypotension, unspecified] Onset: 8 12-03-2017 Episodic Other circulatory disease (1 source) Hypotension, unspecified; Translations: [Hypotension, unspecified hypotension type] Onset: 8 Episodic Other connective tissue disease (2 sources) Pain in left leg; Translations: [Pain in left leg] Onset: 5 Episodic Other connective tissue disease (1 source) Neuralgia and neuritis, unspecified; Translations: [Neuralgia and neuritis, unspecified] Onset: 5 Episodic Other gastrointestinal disorders (1 source) Diarrhea, [...] [Gram-negative sepsis, unspecified] Onset: 5 07-03-2024 Episodic Urinary tract infections (20 sources) Urinary tract infectious disease; Translations: [Urinary tract infection, site not specified] Onset: 5 06-30-2024 Episodic Results Test Name Value Interpretation Reference Range [facility] By: Riccardo Shaikh on 02-11-2025 Glucose [Mass/Vol] 158 mg/dL High 74-106 [facility] Absolute lymphocyte countOrd ered By: Talisha Boykin on 02-10-2025 Lymphocytes Auto (Unsp spec) [#/Vol] 1.75 10*3/uL 0.83-4.51 [facility] Anion gap in Serum or Plasma Ordered By: Talisha Boykin on 02-10-2025 Anion gap [Moles/Vol] 10 mmol/L 5-15 [facility] Automated lymphocyte count a s percentage of total leukocytesOrdered By: Talisha Boykin on 02-10-2025 Lymphocytes/100 WBC Auto (Unsp spec) 26.3 % 19-41 [facility] BUN/creatinine ratioOrdered By: Talisha Boykin on 02-10-2025 Urea nitrogen/Creatinine [Mass ratio] 32.8 mg/mg High 10-20 [facility] Basophil percentageOrdered B y: Talisha Boykin on 02-10-2025 Basophils/100 WBC (Bld) 0.5 % 0-1 [facility] Carbon dioxide, total [Moles /volume] in Central venous bloodOrdered By: Talisha Boykin on 02-10-2025 CO2 [Moles/Vol] 23.4 mmol/L 21.0-32.0 [facility] Chloride assayOrdered By: Na na Ashutosh on 02-10-2025 Chloride [Moles/Vol] 104 mmol/L 98-108 [facility] Eosinophil percentageOrdered By: Talisha Boykin 02-10-2025 Eosinophils/100 WBC (Bld) 1.1 % 0-5 [facility] Erythrocyte distribution wid th ratioOrdered By: Talisha Boykin on 02-10-2025 Erythrocyte distribution width (RBC) [Ratio] 14.9 % High 11.6-14.6 [facility] Erythrocyte distribution wid th standard deviationOrdered By: Talisha Boykin 02-10-2025 Erythrocyte distribution width (RBC) [Ratio] 46.4 fl High 35.1-43.9 [facility] Glomerular filtration rate ( GFR) estimation/1.73 sq m using serum, plasma, or whole bOrdered By: Talisha Boykin 02-10-2025 GFR/1.73 sq M.predicted among non-blacks MDRD (S/P/Bld) [Vol rate/Area] 93 mL/min/{1.73_m2} >60 [facility] Hematocrit Auto (Bld) [Volum e fraction]Ordered By: Talisha Boykin 02-10-2025 Hematocrit (Bld) [Volume fraction] 30.9 % Low 37-47 [facility] Hemoglobin measurementOrdere d By: Talisha Boykin 02-10-2025 Hemoglobin (Bld) [Mass/Vol] 10.0 g/dL Low 12.0-15.0 [facility] Immature granulocytes/100 WB C Auto (Bld)Ordered By: Talisha Boykin 02-10-2025 Immature granulocytes/100 WBC (Bld) 0.500 % 0.0-0.9 [facility] MCV (mean corpuscular volume ) determinationOrdered By: Talisha Boykin 02-10-2025 MCV (RBC) [Entitic vol] 84.9 fL 81-99 [facility] Mean corpuscular hemoglobin (MCH) determinationOrdered By: Talisha Boykin 02-10-2025 MCH (RBC) [Entitic mass] 27.5 pg 27.0-32.0 [facility] Monocyte percentageOrdered B y: Talishaneville Boykin on 02-10-2025 Monocytes/100 WBC (Bld) 7.2 % 0-10 [facility] Neutrophil percentageOrdered By: Talisha Boykin on 02-10-2025 Neutrophils/100 WBC (Bld) 64.4 % 47-70 [facility] Platelet countOrdered By: Helen Boykin on 02-10-2025 Platelets (Bld) [#/Vol] 220 10*3/uL 150-450 [facility] Potassium measurement (mass/ volume)Ordered By: Talisha Boykin on 02-10-2025 Potassium (Unsp spec) [Mass/Vol] 4.3 mmol/L 3.3-5.1 [facility] RBC Auto (Bld) [#/Vol]Ordere d By: Talisha Boykin on 02-10-2025 RBC (Bld) [#/Vol] 3.64 10*6/uL Low 4.2-5.4 [facility] Serum creatinine measurement (mass/volume)Ordered By: Talisha Boykin on 02-10-2025 Creatinine [Mass/Vol] 0.76 mg/dL 0.70-1.20 [facility] Serum glucose measurement (m ass/volume)Ordered By: Talisha Boykin on 02-10-2025 Glucose [Mass/Vol] 157 mg/dL High 70-99 [facility] Serum or plasma calcium xiomara urement (mass/volume)Ordered By: Talisha Boykin on 02-10-2025 Calcium [Mass/Vol] 8.7 mg/dL 7.6-11.0 [facility] Serum or plasma urea nitroge n measurement (mass/volume)Ordered By: Talisha Boykin on 02-10-2025 Urea nitrogen [Mass/Vol] 25 mg/dL High 4-19 [facility] Sodium levelOrdered By: Talisha Boykin on 02-10-2025 Sodium [Moles/Vol] 138 mmol/L 133-145 [facility] White blood cell (WBC) count Ordered By: Talisha Boykin on 02-10-2025 WBC (Bld) [#/Vol] 6.7 10*3/uL 4.4-11.0 [facility] Basic Metabolic Profile (BMP )on 02-09-2025 BUN/CRE 33.2 RATIO High 10-20 [facility] Comment on above: Performed By: #### L 100.0100, L500.2500 ####[facility] [address] [place], [address] Calcium [Mass/Vol] 9.0 mg/dL Normal 7.6-11.0 [facility] Comment on above: Performed By: #### L 100.0100, L500.2500 ####[facility] [address] [place], [address] Chloride [Moles/Vol] 104 mmol/L Normal 98-108 [facility] Comment on above: Performed By: #### L 100.0100, L500.2500 ####[facility] [address] [place], [address] CO2 [Moles/Vol] 26.5 mmol/L Normal 21.0-32.0 [facility] Comment on above: Performed By: #### L 100.0100, L500.2500 ####[facility] [address] [place], [address] Creatinine [Mass/Vol] 0.70 mg/dL Normal 0.70-1.20 [facility] Comment on above: Performed By: #### L 100.0100, L500.2500 ####[facility] [address] [place], [address] ECRCL 101.09 ml/min Normal 50-250 [facility] Comment on above: Performed By: #### L 100.0100, L500.2500 ####[facility] [address] [place], [address] GAP 9 Normal 5-15 [facility] Comment on above: Performed By: #### L 100.0100, L500.2500 ####[facility] [address] [place], [address] GFR/1.73 sq M.predicted among non-blacks MDRD (S/P/Bld) [Vol rate/Area] 103 mL/min/{1.73_m2} Normal >60 [facility] Comment on above: Result Comment: mL/m in/1.73m2 CKD-EPI Creatinine Equation (2020) Performed By: #### L 100.0100, L500.2500 ####[facility] [address] [place], [address] Glucose [Mass/Vol] 113 mg/dL High 70-99 [facility] Comment on above: Performed By: #### L 100.0100, L500.2500 ####[facility] [address] [place], [address] Potassium [Moles/Vol] 4.4 mmol/L Normal 3.3-5.1 [facility] Comment on above: Result Comment: Hemo lysis present, Results??could be affected.?? Performed By: #### L 100.0100, L500.2500 ####[facility] [address] [place], [address] Sodium [Moles/Vol] 139 mmol/L Normal 133-145 [facility] Comment on above: Performed By: #### L 100.0100, L500.2500 ####[facility] [address] [place], [address] Urea nitrogen [Mass/Vol] 23 mg/dL High 4-19 [facility] Comment on above: Performed By: #### L 100.0100, L500.2500 ####[facility] [address] [place], [address] Bedside Glucoseon 02-09-2025 FINGERSTICK GLU 103 mg/dL Normal 74-106 [facility] Comment on above: Result Comment: TALIA CHAMBERS OF PATIENT CARE PER NURSING PROTOCOL Performed By: #### L 501.080 ####[facility] [address] [place], [address] FINGERSTICK GLU 218 mg/dL High 74-106 [facility] Comment on above: Result Comment: TALIA GEMENT OF PATIENT CARE PER NURSING PROTOCOL Performed By: #### L 501.080 ####[facility] [address] [place], [address] FINGERSTICK GLU 102 mg/dL Normal 74-106 [facility] Comment on above: Result Comment: TALIA GEMENT OF PATIENT CARE PER NURSING PROTOCOL Performed By: #### L 501.080 ####[facility] [address] [place], [address] CBC W/Diff, Automatedon 09-0 8-2025 Absolute Lymph 1.83 X10 3/uL Normal 0.83-4.51 [facility] Comment on above: Performed By: #### L 100.0100, L500.2500 ####[facility] [address] [place], [address] Absolute Neut 3.5 X10 3/uL Normal 2.0-7.7 [facility] Comment on above: Performed By: #### L 100.0100, L500.2500 ####[facility] [address] [place], [address] Basophils/100 WBC (Bld) 0.8 % Normal 0-1 [facility] Comment on above: Performed By: #### L 100.0100, L500.2500 ####[facility] [address] [place], [address] Eosinophils/100 WBC (Bld) 1.3 % Normal 0-5 [facility] Comment on above: Performed By: #### L 100.0100, L500.2500 ####[facility] [address] [place], [address] Erythrocyte distribution width (RBC) [Ratio] 15.0 % High 11.6-14.6 [facility] Comment on above: Performed By: #### L 100.0100, L500.2500 ####[facility] [address] [place], [address] Hematocrit (Bld) [Volume fraction] 34.4 % Low 37-47 [facility] Comment on above: Performed By: #### L 100.0100, L500.2500 ####[facility] [address] [place], [address] Hemoglobin (Bld) [Mass/Vol] 10.8 g/dL Low 12.0-15.0 [facility] Comment on above: Performed By: #### L 100.0100, L500.2500 ####[facility] [address] [place], [address] IG% 0.700 Normal 0.0-0.9 [facility] Comment on above: Result Comment: IG% - Immature Granulocytes (promyelocytes, myelocytes andmetamyelocytes) > 1% indicates that a LEFT SHIFT is Present. Performed By: #### L 100.0100, L500.2500 ####[facility] [address] [place], [address] Lymphocytes/100 WBC (Bld) 30.8 % Normal 19-41 [facility] Comment on above: Performed By: #### L 100.0100, L500.2500 ####[facility] [address] [place], [address] MCH (RBC) [Entitic mass] 27.1 pg Normal 27.0-32.0 [facility] Comment on above: Performed By: #### L 100.0100, L500.2500 ####[facility] [address] [place], [address] MCHC (RBC) [Mass/Vol] 31.4 g/dL Low 32-36 [facility] Comment on above: Performed By: #### L 100.0100, L500.2500 ####[facility] [address] [place], [address] MCV (RBC) [Entitic vol] 86.2 fL Normal 81-99 [facility] Comment on above: Performed By: #### L 100.0100, L500.2500 ####[facility] [address] [place], [address] Monocytes/100 WBC (Bld) 7.7 % Normal 0-10 [facility] Comment on above: Performed By: #### L 100.0100, L500.2500 ####[facility] [address] [place], [address] Neutrophils/100 WBC (Bld) 58.7 % Normal 47-70 [facility] Comment on above: Performed By: #### L 100.0100, L500.2500 ####[facility] [address] [place], [address] Nucleated RBC (Bld) [#/Vol] 0 10*3/uL Normal 0-5 [facility] Comment on above: Performed By: #### L 100.0100, L500.2500 ####[facility] [address] [place], [address] Platelet mean volume (Bld) [Entitic vol] 9.3 fL Normal 6.2-12.0 [facility] Comment on above: Performed By: #### L 100.0100, L500.2500 ####[facility] [address] [place], [address] Platelets (Bld) [#/Vol] 221 10*3/uL Normal 150-450 [facility] Comment on above: Performed By: #### L 100.0100, L500.2500 ####[facility] [address] [place], [address] RBC (Bld) [#/Vol] 3.99 10*6/uL Low 4.2-5.4 [facility] Comment on above: Performed By: #### L 100.0100, L500.2500 ####[facility] [address] [place], [address] RDW SD 47.5 fl High 35.1-43.9 [facility] Comment on above: Performed By: #### L 100.0100, L500.2500 ####[facility] [address] [place], [address] WBC (Bld) [#/Vol] 6.0 10*3/uL Normal 4.4-11.0 [facility] Comment on above: Performed By: #### L 100.0100, L500.2500 ####[facility] [address] [place], [address] Vitamin D,25 Hydroxyon 02-09 Vitamin D 25-OH 13.2 ng/mL Low 30-100 [facility] Comment on above: Result Comment: Charissa min D StatusDeficiency: <20 ng/mL (50nmol/L)Insufficiency: 20-30 ng/mL (50-75 nmol/L)Sufficiency: 30-100 ng/mL (75-250 nmol/L)Toxicity: >100 ng/mL (>250 nmol/L) Performed By: #### L 506.1001 ####[facility] [address] [place], [address] Basic Metabolic Profile (BMP )on 02-08-2025 BUN/CRE 38.6 RATIO High 10-20 [facility] Comment on above: Performed By: #### L 500.2500, L100.0100 ####[facility] [address] [place], [address] Calcium [Mass/Vol] 9.0 mg/dL Normal 7.6-11.0 [facility] Comment on above: Performed By: #### L 500.2500, L100.0100 ####[facility] [address] [place], [address] Chloride [Moles/Vol] 105 mmol/L Normal 98-108 [facility] Comment on above: Performed By: #### L 500.2500, L100.0100 ####[facility] [address] [place], [address] CO2 [Moles/Vol] 24.7 mmol/L Normal 21.0-32.0 [facility] Comment on above: Performed By: #### L 500.2500, L100.0100 ####[facility] [address] [place], [address] Creatinine [Mass/Vol] 0.70 mg/dL Normal 0.70-1.20 [facility] Comment on above: Performed By: #### L 500.2500, L100.0100 ####[facility] [address] [place], [address] ECRCL 101.04 ml/min Normal 50-250 [facility] Comment on above: Performed By: #### L 500.2500, L100.0100 ####[facility] [address] [place], [address] GAP 9 Normal 5-15 [facility] Comment on above: Performed By: #### L 500.2500, L100.0100 ####[facility] [address] [place], [address] GFR/1.73 sq M.predicted among non-blacks MDRD (S/P/Bld) [Vol rate/Area] 103 mL/min/{1.73_m2} Normal >60 [facility] Comment on above: Result Comment: mL/m in/1.73m2 CKD-EPI Creatinine Equation (2020) Performed By: #### L 500.2500, L100.0100 ####[facility] [address] [place], [address] Glucose [Mass/Vol] 102 mg/dL High 70-99 [facility] Comment on above: Performed By: #### L 500.2500, L100.0100 ####[facility] [address] [place], [address] Potassium [Moles/Vol] 4.3 mmol/L Normal 3.3-5.1 [facility] Comment on above: Performed By: #### L 500.2500, L100.0100 ####[facility] [address] [place], [address] Sodium [Moles/Vol] 139 mmol/L Normal 133-145 [facility] Comment on above: Performed By: #### L 500.2500, L100.0100 ####[facility] [address] [place], [address] Urea nitrogen [Mass/Vol] 27 mg/dL High 4-19 [facility] Comment on above: Performed By: #### L 500.2500, L100.0100 ####[facility] [address] [place], [address] Bedside Glucoseon 02-08-2025 FINGERSTICK GLU 172 mg/dL High 74-106 [facility] Comment on above: Result Comment: TALIA GEMENT OF PATIENT CARE PER NURSING PROTOCOL Performed By: #### L 501.080 ####[facility] [address] [place], [address] FINGERSTICK GLU 153 mg/dL High 74-106 [facility] Comment on above: Result Comment: TALIA GEMENT OF PATIENT CARE PER NURSING PROTOCOL Performed By: #### L 501.080 ####[facility] [address] [place], [address] FINGERSTICK GLU 151 mg/dL High 74-106 [facility] Comment on above: Result Comment: TALIA GEMENT OF PATIENT CARE PER NURSING PROTOCOL Performed By: #### L 501.080 ####[facility] [address] [place], [address] FINGERSTICK GLU 107 mg/dL High 74-106 [facility] Comment on above: Result Comment: TALIA GEMENT OF PATIENT CARE PER NURSING PROTOCOL Performed By: #### L 501.080 ####[facility] [address] [place], [address] CBC W/Diff, Automatedon 09-0 7-2024 Absolute Lymph 1.60 X10 3/uL Normal 0.83-4.51 [facility] Comment on above: Performed By: #### L 500.2500, L100.0100 ####[facility] [address] [place], [address] Absolute Neut 3.4 X10 3/uL Normal 2.0-7.7 [facility] Comment on above: Performed By: #### L 500.2500, L100.0100 ####[facility] [address] [place], [address] Basophils/100 WBC (Bld) 0.9 % Normal 0-1 [facility] Comment on above: Performed By: #### L 500.2500, L100.0100 ####[facility] [address] [place], [address] Eosinophils/100 WBC (Bld) 1.2 % Normal 0-5 [facility] Comment on above: Performed By: #### L 500.2500, L100.0100 ####[facility] [address] [place], [address] Erythrocyte distribution width (RBC) [Ratio] 15.0 % High 11.6-14.6 [facility] Comment on above: Performed By: #### L 500.2500, L100.0100 ####[facility] [address] [place], [address] Hematocrit (Bld) [Volume fraction] 33.3 % Low 37-47 [facility] Comment on above: Performed By: #### L 500.2500, L100.0100 ####[facility] [address] [place], [address] Hemoglobin (Bld) [Mass/Vol] 10.6 g/dL Low 12.0-15.0 [facility] Comment on above: Performed By: #### L 500.2500, L100.0100 ####[facility] [address] [place], [address] IG% 0.700 Normal 0.0-0.9 [facility] Comment on above: Result Comment: IG% - Immature Granulocytes (promyelocytes, myelocytes andmetamyelocytes) > 1% indicates that a LEFT SHIFT is Present. Performed By: #### L 500.2500, L100.0100 ####[facility] [address] [place], [address] Lymphocytes/100 WBC (Bld) 28.0 % Normal 19-41 [facility] Comment on above: Performed By: #### L 500.2500, L100.0100 ####[facility] [address] [place], [address] MCH (RBC) [Entitic mass] 27.5 pg Normal 27.0-32.0 [facility] Comment on above: Performed By: #### L 500.2500, L100.0100 ####[facility] [address] [place], [address] MCHC (RBC) [Mass/Vol] 31.8 g/dL Low 32-36 [facility] Comment on above: Performed By: #### L 500.2500, L100.0100 ####[facility] [address] [place], [address] MCV (RBC) [Entitic vol] 86.5 fL Normal 81-99 [facility] Comment on above: Performed By: #### L 500.2500, L100.0100 ####[facility] [address] [place], [address] Monocytes/100 WBC (Bld) 9.3 % Normal 0-10 [facility] Comment on above: Performed By: #### L 500.2500, L100.0100 ####[facility] [address] [place], [address] Neutrophils/100 WBC (Bld) 59.9 % Normal 47-70 [facility] Comment on above: Performed By: #### L 500.2500, L100.0100 ####[facility] [address] [place], [address] Nucleated RBC (Bld) [#/Vol] 0 10*3/uL Normal 0-5 [facility] Comment on above: Performed By: #### L 500.2500, L100.0100 ####[facility] [address] [place], [address] Platelet mean volume (Bld) [Entitic vol] 9.6 fL Normal 6.2-12.0 [facility] Comment on above: Performed By: #### L 500.2500, L100.0100 ####[facility] [address] [place], [address] Platelets (Bld) [#/Vol] 211 10*3/uL Normal 150-450 [facility] Comment on above: Performed By: #### L 500.2500, L100.0100 ####[facility] [address] [place], [address] RBC (Bld) [#/Vol] 3.85 10*6/uL Low 4.2-5.4 [facility] Comment on above: Performed By: #### L 500.2500, L100.0100 ####[facility] [address] [place], [address] RDW SD 47.4 fl High 35.1-43.9 [facility] Comment on above: Performed By: #### L 500.2500, L100.0100 ####[facility] [address] [place], [address] WBC (Bld) [#/Vol] 5.7 10*3/uL Normal 4.4-11.0 [facility] Comment on above: Performed By: #### L 500.2500, L100.0100 ####[facility] [address] [place], [address] Basic Metabolic Profile (BMP )on 02-07-2025 BUN/CRE 24.5 RATIO High 10-20 [facility] Comment on above: Performed By: #### L 100.0100, L500.2500 ####[facility] [address] [place], [address] Calcium [Mass/Vol] 8.6 mg/dL Normal 7.6-11.0 [facility] Comment on above: Performed By: #### L 100.0100, L500.2500 ####[facility] [address] [place], [address] Chloride [Moles/Vol] 104 mmol/L Normal 98-108 [facility] Comment on above: Performed By: #### L 100.0100, L500.2500 ####[facility] [address] [place], [address] CO2 [Moles/Vol] 24.8 mmol/L Normal 21.0-32.0 [facility] Comment on above: Performed By: #### L 100.0100, L500.2500 ####[facility] [address] [place], [address] Creatinine [Mass/Vol] 0.92 mg/dL Normal 0.70-1.20 [facility] Comment on above: Performed By: #### L 100.0100, L500.2500 ####[facility] [address] [place], [address] ECRCL 77.68 ml/min Normal 50-250 [facility] Comment on above: Performed By: #### L 100.0100, L500.2500 ####[facility] [address] [place], [address] GAP 10 Normal 5-15 [facility] Comment on above: Performed By: #### L 100.0100, L500.2500 ####[facility] [address] [place], [address] GFR/1.73 sq M.predicted among non-blacks MDRD (S/P/Bld) [Vol rate/Area] 74 mL/min/{1.73_m2} Normal >60 [facility] Comment on above: Result Comment: mL/m in/1.73m2 CKD-EPI Creatinine Equation (2020) Performed By: #### L 100.0100, L500.2500 ####[facility] [address] [place], [address] Glucose [Mass/Vol] 179 mg/dL High 70-99 [facility] Comment on above: Performed By: #### L 100.0100, L500.2500 ####[facility] [address] [place], [address] Potassium [Moles/Vol] 4.5 mmol/L Normal 3.3-5.1 [facility] Comment on above: Result Comment: Hemo lysis present, Results??could be affected.?? Performed By: #### L 100.0100, L500.2500 ####[facility] [address] [place], [address] Sodium [Moles/Vol] 139 mmol/L Normal 133-145 [facility] Comment on above: Performed By: #### L 100.0100, L500.2500 ####[facility] [address] [place], [address] Urea nitrogen [Mass/Vol] 23 mg/dL High 4-19 [facility] Comment on above: Performed By: #### L 100.0100, L500.2500 ####[facility] [address] [place], [address] Bedside Glucoseon 02-07-2025 FINGERSTICK GLU 122 mg/dL High 74-106 [facility] Comment on above: Result Comment: TALIA GEMENT OF PATIENT CARE PER NURSING PROTOCOL Performed By: #### L 501.080 ####[facility] [address] [place], [address] FINGERSTICK GLU 99 mg/dL Normal 74-106 [facility] Comment on above: Result Comment: TALIA GEMENT OF PATIENT CARE PER NURSING PROTOCOL Performed By: #### L 501.080 ####[facility] [address] [place], [address] FINGERSTICK GLU 160 mg/dL High 74-106 [facility] Comment on above: Result Comment: TALIA GEMENT OF PATIENT CARE PER NURSING PROTOCOL Performed By: #### L 501.080 ####[facility] [address] [place], [address] FINGERSTICK GLU 176 mg/dL High 74-106 [facility] Comment on above: Result Comment: TALIA GEMENT OF PATIENT CARE PER NURSING PROTOCOL Performed By: #### L 501.080 ####[facility] [address] [place], [address] CBC W/Diff, Automatedon 09-0 Absolute Lymph 1.88 X10 3/uL Normal 0.83-4.51 [facility] Comment on above: Performed By: #### L 100.0100, L500.2500 ####[facility] [address] [place], [address] Absolute Neut 2.8 X10 3/uL Normal 2.0-7.7 [facility] Comment on above: Performed By: #### L 100.0100, L500.2500 ####[facility] [address] [place], [address] Basophils/100 WBC (Bld) 0.9 % Normal 0-1 [facility] Comment on above: Performed By: #### L 100.0100, L500.2500 ####[facility] [address] [place], [address] Eosinophils/100 WBC (Bld) 1.3 % Normal 0-5 [facility] Comment on above: Performed By: #### L 100.0100, L500.2500 ####[facility] [address] [place], [address] Erythrocyte distribution width (RBC) [Ratio] 15.0 % High 11.6-14.6 [facility] Comment on above: Performed By: #### L 100.0100, L500.2500 ####[facility] [address] [place], [address] Hematocrit (Bld) [Volume fraction] 33.0 % Low 37-47 [facility] Comment on above: Performed By: #### L 100.0100, L500.2500 ####[facility] [address] [place], [address] Hemoglobin (Bld) [Mass/Vol] 10.4 g/dL Low 12.0-15.0 [facility] Comment on above: Performed By: #### L 100.0100, L500.2500 ####[facility] [address] [place], [address] IG% 0.600 Normal 0.0-0.9 [facility] Comment on above: Result Comment: IG% - Immature Granulocytes (promyelocytes, myelocytes andmetamyelocytes) > 1% indicates that a LEFT SHIFT is Present. Performed By: #### L 100.0100, L500.2500 ####[facility] [address] [place], [address] Lymphocytes/100 WBC (Bld) 35.5 % Normal 19-41 [facility] Comment on above: Performed By: #### L 100.0100, L500.2500 ####[facility] [address] [place], [address] MCH (RBC) [Entitic mass] 27.3 pg Normal 27.0-32.0 [facility] Comment on above: Performed By: #### L 100.0100, L500.2500 ####[facility] [address] [place], [address] MCHC (RBC) [Mass/Vol] 31.5 g/dL Low 32-36 [facility] Comment on above: Performed By: #### L 100.0100, L500.2500 ####[facility] [address] [place], [address] MCV (RBC) [Entitic vol] 86.6 fL Normal 81-99 [facility] Comment on above: Performed By: #### L 100.0100, L500.2500 ####[facility] [address] [place], [address] Monocytes/100 WBC (Bld) 8.5 % Normal 0-10 [facility] Comment on above: Performed By: #### L 100.0100, L500.2500 ####[facility] [address] [place], [address] Neutrophils/100 WBC (Bld) 53.2 % Normal 47-70 [facility] Comment on above: Performed By: #### L 100.0100, L500.2500 ####[facility] [address] [place], [address] Nucleated RBC (Bld) [#/Vol] 0 10*3/uL Normal 0-5 [facility] Comment on above: Performed By: #### L 100.0100, L500.2500 ####[facility] [address] [place], [address] Platelet mean volume (Bld) [Entitic vol] 9.6 fL Normal 6.2-12.0 [facility] Comment on above: Performed By: #### L 100.0100, L500.2500 ####[facility] [address] [place], [address] Platelets (Bld) [#/Vol] 216 10*3/uL Normal 150-450 [facility] Comment on above: Performed By: #### L 100.0100, L500.2500 ####[facility] [address] [place], [address] RBC (Bld) [#/Vol] 3.81 10*6/uL Low 4.2-5.4 [facility] Comment on above: Performed By: #### L 100.0100, L500.2500 ####[facility] [address] [place], [address] RDW SD 47.6 fl High 35.1-43.9 [facility] Comment on above: Performed By: #### L 100.0100, L500.2500 ####[facility] [address] [place], [address] WBC (Bld) [#/Vol] 5.3 10*3/uL Normal 4.4-11.0 [facility] Comment on above: Performed By: #### L 100.0100, L500.2500 ####[facility] [address] [place], [address] Basic Metabolic Profile (BMP )on 02-06-2025 BUN/CRE 32.2 RATIO High 10-20 [facility] Comment on above: Performed By: #### L 500.2500, L100.0100 ####[facility] [address] [place], [address] Calcium [Mass/Vol] 8.5 mg/dL Normal 7.6-11.0 [facility] Comment on above: Performed By: #### L 500.2500, L100.0100 ####[facility] [address] [place], [address] Chloride [Moles/Vol] 103 mmol/L Normal 98-108 [facility] Comment on above: Performed By: #### L 500.2500, L100.0100 ####[facility] [address] [place], [address] CO2 [Moles/Vol] 24.1 mmol/L Normal 21.0-32.0 [facility] Comment on above: Performed By: #### L 500.2500, L100.0100 ####[facility] [address] [place], [address] Creatinine [Mass/Vol] 0.76 mg/dL Normal 0.70-1.20 [facility] Comment on above: Performed By: #### L 500.2500, L100.0100 ####[facility] [address] [place], [address] ECRCL 93.87 ml/min Normal 50-250 [facility] Comment on above: Performed By: #### L 500.2500, L100.0100 ####[facility] [address] [place], [address] GAP 10 Normal 5-15 [facility] Comment on above: Performed By: #### L 500.2500, L100.0100 ####[facility] [address] [place], [address] GFR/1.73 sq M.predicted among non-blacks MDRD (S/P/Bld) [Vol rate/Area] 94 mL/min/{1.73_m2} Normal >60 [facility] Comment on above: Result Comment: mL/m in/1.73m2 CKD-EPI Creatinine Equation (2020) Performed By: #### L 500.2500, L100.0100 ####[facility] [address] [place], [address] Glucose [Mass/Vol] 221 mg/dL High 70-99 [facility] Comment on above: Performed By: #### L 500.2500, L100.0100 ####[facility] [address] [place], [address] Potassium [Moles/Vol] 4.4 mmol/L Normal 3.3-5.1 [facility] Comment on above: Result Comment: Hemo lysis present, Results??could be affected.?? Performed By: #### L 500.2500, L100.0100 ####[facility] [address] [place], [address] Sodium [Moles/Vol] 137 mmol/L Normal 133-145 [facility] Comment on above: Performed By: #### L 500.2500, L100.0100 ####[facility] [address] [place], [address] Urea nitrogen [Mass/Vol] 24 mg/dL High 4-19 [facility] Comment on above: Performed By: #### L 500.2500, L100.0100 ####[facility] [address] [place], [address] Bedside Glucoseon 02-06-2025 FINGERSTICK GLU 181 mg/dL High 74-106 [facility] Comment on above: Result Comment: TALIA TRISH OF PATIENT CARE PER NURSING PROTOCOL Performed By: #### L 501.080 ####[facility] [address] [place], [address] FINGERSTICK GLU 170 mg/dL High 74-106 [facility] Comment on above: Result Comment: TALIA GEMENT OF PATIENT CARE PER NURSING PROTOCOL Performed By: #### L 501.080 ####[facility] [address] [place], [address] FINGERSTICK GLU 159 mg/dL High 74-106 [facility] Comment on above: Result Comment: TALIA GEMENT OF PATIENT CARE PER NURSING PROTOCOL Performed By: #### L 501.080 ####[facility] [address] [place], [address] FINGERSTICK GLU 236 mg/dL High 74-106 [facility] Comment on above: Result Comment: TALIA GEMENT OF PATIENT CARE PER NURSING PROTOCOL Performed By: #### L 501.080 ####[facility] [address] [place], [address] CBC W/Diff, Automatedon 09-0 5-2025 Absolute Lymph 1.58 X10 3/uL Normal 0.83-4.51 [facility] Comment on above: Performed By: #### L 500.2500, L100.0100 ####[facility] [address] [place], [address] Absolute Neut 3.3 X10 3/uL Normal 2.0-7.7 [facility] Comment on above: Performed By: #### L 500.2500, L100.0100 ####[facility] [address] [place], [address] Basophils/100 WBC (Bld) 1.1 % High 0-1 [facility] Comment on above: Performed By: #### L 500.2500, L100.0100 ####[facility] [address] [place], [address] Eosinophils/100 WBC (Bld) 1.6 % Normal 0-5 [facility] Comment on above: Performed By: #### L 500.2500, L100.0100 ####[facility] [address] [place], [address] Erythrocyte distribution width (RBC) [Ratio] 14.7 % High 11.6-14.6 [facility] Comment on above: Performed By: #### L 500.2500, L100.0100 ####[facility] [address] [place], [address] Hematocrit (Bld) [Volume fraction] 32.7 % Low 37-47 [facility] Comment on above: Performed By: #### L 500.2500, L100.0100 ####[facility] [address] [place], [address] Hemoglobin (Bld) [Mass/Vol] 10.4 g/dL Low 12.0-15.0 [facility] Comment on above: Performed By: #### L 500.2500, L100.0100 ####[facility] [address] [place], [address] IG% 0.400 Normal 0.0-0.9 [facility] Comment on above: Result Comment: IG% - Immature Granulocytes (promyelocytes, myelocytes andmetamyelocytes) > 1% indicates that a LEFT SHIFT is Present. Performed By: #### L 500.2500, L100.0100 ####[facility] [address] [place], [address] Lymphocytes/100 WBC (Bld) 28.8 % Normal 19-41 [facility] Comment on above: Performed By: #### L 500.2500, L100.0100 ####[facility] [address] [place], [address] MCH (RBC) [Entitic mass] 27.2 pg Normal 27.0-32.0 [facility] Comment on above: Performed By: #### L 500.2500, L100.0100 ####[facility] [address] [place], [address] MCHC (RBC) [Mass/Vol] 31.8 g/dL Low 32-36 [facility] Comment on above: Performed By: #### L 500.2500, L100.0100 ####[facility] [address] [place], [address] MCV (RBC) [Entitic vol] 85.6 fL Normal 81-99 [facility] Comment on above: Performed By: #### L 500.2500, L100.0100 ####[facility] [address] [place], [address] Monocytes/100 WBC (Bld) 7.8 % Normal 0-10 [facility] Comment on above: Performed By: #### L 500.2500, L100.0100 ####[facility] [address] [place], [address] Neutrophils/100 WBC (Bld) 60.3 % Normal 47-70 [facility] Comment on above: Performed By: #### L 500.2500, L100.0100 ####[facility] [address] [place], [address] Nucleated RBC (Bld) [#/Vol] 0 10*3/uL Normal 0-5 [facility] Comment on above: Performed By: #### L 500.2500, L100.0100 ####[facility] [address] [place], [address] Platelet mean volume (Bld) [Entitic vol] 9.6 fL Normal 6.2-12.0 [facility] Comment on above: Performed By: #### L 500.2500, L100.0100 ####[facility] [address] [place], [address] Platelets (Bld) [#/Vol] 206 10*3/uL Normal 150-450 [facility] Comment on above: Performed By: #### L 500.2500, L100.0100 ####[facility] [address] [place], [address] RBC (Bld) [#/Vol] 3.82 10*6/uL Low 4.2-5.4 [facility] Comment on above: Performed By: #### L 500.2500, L100.0100 ####[facility] [address] [place], [address] RDW SD 46.6 fl High 35.1-43.9 [facility] Comment on above: Performed By: #### L 500.2500, L100.0100 ####[facility] [address] [place], [address] WBC (Bld) [#/Vol] 5.5 10*3/uL Normal 4.4-11.0 [facility] Comment on above: Performed By: #### L 500.2500, L100.0100 ####[facility] [address] [place], [address] Basic Metabolic Profile (BMP )on 02-05-2025 BUN/CRE 30.6 RATIO High 10-20 [facility] Comment on above: Performed By: #### L 500.2500, L100.0100 ####[facility] [address] [place], [address] Calcium [Mass/Vol] 8.5 mg/dL Normal 7.6-11.0 [facility] Comment on above: Performed By: #### L 500.2500, L100.0100 ####[facility] [address] [place], [address] Chloride [Moles/Vol] 105 mmol/L Normal 98-108 [facility] Comment on above: Performed By: #### L 500.2500, L100.0100 ####[facility] [address] [place], [address] CO2 [Moles/Vol] 26.9 mmol/L Normal 21.0-32.0 [facility] Comment on above: Performed By: #### L 500.2500, L100.0100 ####[facility] [address] [place], [address] Creatinine [Mass/Vol] 0.74 mg/dL Normal 0.70-1.20 [facility] Comment on above: Performed By: #### L 500.2500, L100.0100 ####[facility] [address] [place], [address] ECRCL 96.41 ml/min Normal 50-250 [facility] Comment on above: Performed By: #### L 500.2500, L100.0100 ####[facility] [address] [place], [address] GAP 8 Normal 5-15 [facility] Comment on above: Performed By: #### L 500.2500, L100.0100 ####[facility] [address] [place], [address] GFR/1.73 sq M.predicted among non-blacks MDRD (S/P/Bld) [Vol rate/Area] 97 mL/min/{1.73_m2} Normal >60 [facility] Comment on above: Result Comment: mL/m in/1.73m2 CKD-EPI Creatinine Equation (2020) Performed By: #### L 500.2500, L100.0100 ####[facility] [address] [place], [address] Glucose [Mass/Vol] 169 mg/dL High 70-99 [facility] Comment on above: Performed By: #### L 500.2500, L100.0100 ####[facility] [address] [place], [address] Potassium [Moles/Vol] 4.7 mmol/L Normal 3.3-5.1 [facility] Comment on above: Performed By: #### L 500.2500, L100.0100 ####[facility] [address] [place], [address] Sodium [Moles/Vol] 140 mmol/L Normal 133-145 [facility] Comment on above: Performed By: #### L 500.2500, L100.0100 ####[facility] [address] [place], [address] Urea nitrogen [Mass/Vol] 23 mg/dL High 4-19 [facility] Comment on above: Performed By: #### L 500.2500, L100.0100 ####[facility] [address] [place], [address] Bedside Glucoseon 02-05-2025 FINGERSTICK GLU 215 mg/dL High 74-106 [facility] Comment on above: Result Comment: TALIA GEMENT OF PATIENT CARE PER NURSING PROTOCOL Performed By: #### L 501.080 ####[facility] [address] [place], [address] FINGERSTICK GLU 146 mg/dL High 74-106 [facility] Comment on above: Result Comment: TALIA GEMENT OF PATIENT CARE PER NURSING PROTOCOL Performed By: #### L 501.080 ####[facility] [address] [place], [address] FINGERSTICK GLU 109 mg/dL High 74-106 [facility] Comment on above: Result Comment: TALIA GEMENT OF PATIENT CARE PER NURSING PROTOCOL Performed By: #### L 501.080 ####[facility] [address] [place], [address] FINGERSTICK GLU 291 mg/dL High 74-106 [facility] Comment on above: Result Comment: TALIA GEMENT OF PATIENT CARE PER NURSING PROTOCOL Performed By: #### L 501.080 ####[facility] [address] [place], [address] CBC W/Diff, Automatedon 09-0 -2024 Absolute Lymph 1.95 X10 3/uL Normal 0.83-4.51 [facility] Comment on above: Performed By: #### L 500.2500, L100.0100 ####[facility] [address] [place], [address] Absolute Neut 3.3 X10 3/uL Normal 2.0-7.7 [facility] Comment on above: Performed By: #### L 500.2500, L100.0100 ####[facility] [address] [place], [address] Basophils/100 WBC (Bld) 0.7 % Normal 0-1 [facility] Comment on above: Performed By: #### L 500.2500, L100.0100 ####[facility] [address] [place], [address] Eosinophils/100 WBC (Bld) 1.4 % Normal 0-5 [facility] Comment on above: Performed By: #### L 500.2500, L100.0100 ####[facility] [address] [place], [address] Erythrocyte distribution width (RBC) [Ratio] 15.2 % High 11.6-14.6 [facility] Comment on above: Performed By: #### L 500.2500, L100.0100 ####[facility] [address] [place], [address] Hematocrit (Bld) [Volume fraction] 33.8 % Low 37-47 [facility] Comment on above: Performed By: #### L 500.2500, L100.0100 ####[facility] [address] [place], [address] Hemoglobin (Bld) [Mass/Vol] 10.5 g/dL Low 12.0-15.0 [facility] Comment on above: Performed By: #### L 500.2500, L100.0100 ####[facility] [address] [place], [address] IG% 0.500 Normal 0.0-0.9 [facility] Comment on above: Result Comment: IG% - Immature Granulocytes (promyelocytes, myelocytes andmetamyelocytes) > 1% indicates that a LEFT SHIFT is Present. Performed By: #### L 500.2500, L100.0100 ####[facility] [address] [place], [address] Lymphocytes/100 WBC (Bld) 33.6 % Normal 19-41 [facility] Comment on above: Performed By: #### L 500.2500, L100.0100 ####[facility] [address] [place], [address] MCH (RBC) [Entitic mass] 27.1 pg Normal 27.0-32.0 [facility] Comment on above: Performed By: #### L 500.2500, L100.0100 ####[facility] [address] [place], [address] MCHC (RBC) [Mass/Vol] 31.1 g/dL Low 32-36 [facility] Comment on above: Performed By: #### L 500.2500, L100.0100 ####[facility] [address] [place], [address] MCV (RBC) [Entitic vol] 87.3 fL Normal 81-99 [facility] Comment on above: Performed By: #### L 500.2500, L100.0100 ####[facility] [address] [place], [address] Monocytes/100 WBC (Bld) 7.8 % Normal 0-10 [facility] Comment on above: Performed By: #### L 500.2500, L100.0100 ####[facility] [address] [place], [address] Neutrophils/100 WBC (Bld) 56.0 % Normal 47-70 [facility] Comment on above: Performed By: #### L 500.2500, L100.0100 ####[facility] [address] [place], [address] Nucleated RBC (Bld) [#/Vol] 0 10*3/uL Normal 0-5 [facility] Comment on above: Performed By: #### L 500.2500, L100.0100 ####[facility] [address] [place], [address] Platelet mean volume (Bld) [Entitic vol] 9.9 fL Normal 6.2-12.0 [facility] Comment on above: Performed By: #### L 500.2500, L100.0100 ####[facility] [address] [place], [address] Platelets (Bld) [#/Vol] 206 10*3/uL Normal 150-450 [facility] Comment on above: Performed By: #### L 500.2500, L100.0100 ####[facility] [address] [place], [address] RBC (Bld) [#/Vol] 3.87 10*6/uL Low 4.2-5.4 [facility] Comment on above: Performed By: #### L 500.2500, L100.0100 ####[facility] [address] [place], [address] RDW SD 48.6 fl High 35.1-43.9 [facility] Comment on above: Performed By: #### L 500.2500, L100.0100 ####[facility] [address] [place], [address] WBC (Bld) [#/Vol] 5.8 10*3/uL Normal 4.4-11.0 [facility] Comment on above: Performed By: #### L 500.2500, L100.0100 ####[facility] [address] [place], [address] Basic Metabolic Profile (BMP )on 02-04-2025 BUN/CRE 34.9 RATIO High 10-20 [facility] Comment on above: Performed By: #### L 100.0100, L500.2500 ####[facility] [address] [place], [address] Calcium [Mass/Vol] 8.7 mg/dL Normal 7.6-11.0 [facility] Comment on above: Performed By: #### L 100.0100, L500.2500 ####[facility] [address] [place], [address] Chloride [Moles/Vol] 106 mmol/L Normal 98-108 [facility] Comment on above: Performed By: #### L 100.0100, L500.2500 ####[facility] [address] [place], [address] CO2 [Moles/Vol] 25.4 mmol/L Normal 21.0-32.0 [facility] Comment on above: Performed By: #### L 100.0100, L500.2500 ####[facility] [address] [place], [address] Creatinine [Mass/Vol] 0.87 mg/dL Normal 0.70-1.20 [facility] Comment on above: Performed By: #### L 100.0100, L500.2500 ####[facility] [address] [place], [address] ECRCL 80.49 ml/min Normal 50-250 [facility] Comment on above: Performed By: #### L 100.0100, L500.2500 ####[facility] [address] [place], [address] GAP 7 Normal 5-15 [facility] Comment on above: Performed By: #### L 100.0100, L500.2500 ####[facility] [address] [place], [address] GFR/1.73 sq M.predicted among non-blacks MDRD (S/P/Bld) [Vol rate/Area] 79 mL/min/{1.73_m2} Normal >60 [facility] Comment on above: Result Comment: mL/m in/1.73m2 CKD-EPI Creatinine Equation (2020) Performed By: #### L 100.0100, L500.2500 ####[facility] [address] [place], [address] Glucose [Mass/Vol] 160 mg/dL High 70-99 [facility] Comment on above: Performed By: #### L 100.0100, L500.2500 ####[facility] [address] [place], [address] Potassium [Moles/Vol] 5.2 mmol/L High 3.3-5.1 [facility] Comment on above: Performed By: #### L 100.0100, L500.2500 ####[facility] [address] [place], [address] Sodium [Moles/Vol] 139 mmol/L Normal 133-145 [facility] Comment on above: Performed By: #### L 100.0100, L500.2500 ####[facility] [address] [place], [address] Urea nitrogen [Mass/Vol] 31 mg/dL High 4-19 [facility] Comment on above: Performed By: #### L 100.0100, L500.2500 ####[facility] [address] [place], [address] Bedside Glucoseon 02-04-2025 FINGERSTICK GLU 151 mg/dL High 74-106 [facility] Comment on above: Result Comment: TALIA GEMENT OF PATIENT CARE PER NURSING PROTOCOL Performed By: #### L 501.080 ####[facility] [address] [place], [address] FINGERSTICK GLU 179 mg/dL High 74-106 [facility] Comment on above: Result Comment: TALIA GEMENT OF PATIENT CARE PER NURSING PROTOCOL Performed By: #### L 501.080 ####[facility] [address] [place], [address] FINGERSTICK GLU 123 mg/dL High -106 [facility] Comment on above: Result Comment: TALIA GEMENT OF PATIENT CARE PER NURSING PROTOCOL Performed By: #### L 501.080 ####[facility] [address] [place], [address] FINGERSTICK GLU 301 mg/dL High [facility] Comment on above: Result Comment: TALIA GEMENT OF PATIENT CARE PER NURSING PROTOCOL Performed By: #### L 501.080 ####[facility] [address] [place], [address] CBC W/Diff, Automatedon Absolute Lymph 1.89 X10 3/uL Normal 0.83-4.51 [facility] Comment on above: Performed By: #### L 100.0100, L500.2500 ####[facility] [address] [place], [address] Absolute Neut 4.5 X10 3/uL Normal 2.0-7.7 [facility] Comment on above: Performed By: #### L 100.0100, L500.2500 ####[facility] [address] [place], [address] Basophils/100 WBC (Bld) 0.7 % Normal 0-1 [facility] Comment on above: Performed By: #### L 100.0100, L500.2500 ####[facility] [address] [place], [address] Eosinophils/100 WBC (Bld) 1.4 % Normal 0-5 [facility] Comment on above: Performed By: #### L 100.0100, L500.2500 ####[facility] [address] [place], [address] Erythrocyte distribution width (RBC) [Ratio] 15.1 % High 11.6-14.6 [facility] Comment on above: Performed By: #### L 100.0100, L500.2500 ####[facility] [address] [place], [address] Hematocrit (Bld) [Volume fraction] 33.7 % Low 37-47 [facility] Comment on above: Performed By: #### L 100.0100, L500.2500 ####[facility] [address] [place], [address] Hemoglobin (Bld) [Mass/Vol] 10.5 g/dL Low 12.0-15.0 [facility] Comment on above: Performed By: #### L 100.0100, L500.2500 ####[facility] [address] [place], [address] IG% 0.300 Normal 0.0-0.9 [facility] Comment on above: Result Comment: IG% - Immature Granulocytes (promyelocytes, myelocytes andmetamyelocytes) > 1% indicates that a LEFT SHIFT is Present. Performed By: #### L 100.0100, L500.2500 ####[facility] [address] [place], [address] Lymphocytes/100 WBC (Bld) 26.4 % Normal 19-41 [facility] Comment on above: Performed By: #### L 100.0100, L500.2500 ####[facility] [address] [place], [address] MCH (RBC) [Entitic mass] 27.0 pg Normal 27.0-32.0 [facility] Comment on above: Performed By: #### L 100.0100, L500.2500 ####[facility] [address] [place], [address] MCHC (RBC) [Mass/Vol] 31.2 g/dL Low 32-36 [facility] Comment on above: Performed By: #### L 100.0100, L500.2500 ####[facility] [address] [place], [address] MCV (RBC) [Entitic vol] 86.6 fL Normal 81-99 [facility] Comment on above: Performed By: #### L 100.0100, L500.2500 ####[facility] [address] [place], [address] Monocytes/100 WBC (Bld) 8.5 % Normal 0-10 [facility] Comment on above: Performed By: #### L 100.0100, L500.2500 ####[facility] [address] [place], [address] Neutrophils/100 WBC (Bld) 62.7 % Normal 47-70 [facility] Comment on above: Performed By: #### L 100.0100, L500.2500 ####[facility] [address] [place], [address] Nucleated RBC (Bld) [#/Vol] 0 10*3/uL Normal 0-5 [facility] Comment on above: Performed By: #### L 100.0100, L500.2500 ####[facility] [address] [place], [address] Platelet mean volume (Bld) [Entitic vol] 9.5 fL Normal 6.2-12.0 [facility] Comment on above: Performed By: #### L 100.0100, L500.2500 ####[facility] [address] [place], [address] Platelets (Bld) [#/Vol] 194 10*3/uL Normal 150-450 [facility] Comment on above: Performed By: #### L 100.0100, L500.2500 ####[facility] [address] [place], [address] RBC (Bld) [#/Vol] 3.89 10*6/uL Low 4.2-5.4 [facility] Comment on above: Performed By: #### L 100.0100, L500.2500 ####[facility] [address] [place], [address] RDW SD 48.1 fl High 35.1-43.9 [facility] Comment on above: Performed By: #### L 100.0100, L500.2500 ####[facility] [address] [place], [address] WBC (Bld) [#/Vol] 7.2 10*3/uL Normal 4.4-11.0 [facility] Comment on above: Performed By: #### L 100.0100, L500.2500 ####[facility] [address] [place], [address] Basic Metabolic Profile (BMP )on 02-03-2025 BUN/CRE 32.2 RATIO High 10-20 [facility] Comment on above: Performed By: #### L 500.2500, L100.0100 ####[facility] [address] [place], [address] Calcium [Mass/Vol] 8.5 mg/dL Normal 7.6-11.0 [facility] Comment on above: Performed By: #### L 500.2500, L100.0100 ####[facility] [address] [place], [address] Chloride [Moles/Vol] 107 mmol/L Normal 98-108 [facility] Comment on above: Performed By: #### L 500.2500, L100.0100 ####[facility] [address] [place], [address] CO2 [Moles/Vol] 22.1 mmol/L Normal 21.0-32.0 [facility] Comment on above: Performed By: #### L 500.2500, L100.0100 ####[facility] [address] [place], [address] Creatinine [Mass/Vol] 0.92 mg/dL Normal 0.70-1.20 [facility] Comment on above: Performed By: #### L 500.2500, L100.0100 ####[facility] [address] [place], [address] ECRCL 76.12 ml/min Normal 50-250 [facility] Comment on above: Performed By: #### L 500.2500, L100.0100 ####[facility] [address] [place], [address] GAP 7 Normal 5-15 [facility] Comment on above: Performed By: #### L 500.2500, L100.0100 ####[facility] [address] [place], [address] GFR/1.73 sq M.predicted among non-blacks MDRD (S/P/Bld) [Vol rate/Area] 74 mL/min/{1.73_m2} Normal >60 [facility] Comment on above: Result Comment: mL/m in/1.73m2 CKD-EPI Creatinine Equation (2020) Performed By: #### L 500.2500, L100.0100 ####[facility] [address] [place], [address] Glucose [Mass/Vol] 119 mg/dL High 70-99 [facility] Comment on above: Performed By: #### L 500.2500, L100.0100 ####[facility] [address] [place], [address] Potassium [Moles/Vol] 5.2 mmol/L High 3.3-5.1 [facility] Comment on above: Result Comment: Hemo lysis present, Results??could be affected.?? Performed By: #### L 500.2500, L100.0100 ####[facility] [address] [place], [address] Sodium [Moles/Vol] 136 mmol/L Normal 133-145 [facility] Comment on above: Performed By: #### L 500.2500, L100.0100 ####[facility] [address] [place], [address] Urea nitrogen [Mass/Vol] 30 mg/dL High 4-19 [facility] Comment on above: Performed By: #### L 500.2500, L100.0100 ####[facility] [address] [place], [address] Bedside Glucoseon 02-03-2025 FINGERSTICK GLU 288 mg/dL High 74-106 [facility] Comment on above: Result Comment: TALIA GEMENT OF PATIENT CARE PER NURSING PROTOCOL Performed By: #### L 501.080 ####[facility] [address] [place], [address] FINGERSTICK GLU 172 mg/dL High 74-106 [facility] Comment on above: Result Comment: TALIA GEMENT OF PATIENT CARE PER NURSING PROTOCOL Performed By: #### L 501.080 ####[facility] [address] [place], [address] FINGERSTICK GLU 225 mg/dL High 74-106 [facility] Comment on above: Result Comment: TALIA GEMENT OF PATIENT CARE PER NURSING PROTOCOL Performed By: #### L 501.080 ####[facility] [address] [place], [address] FINGERSTICK GLU 159 mg/dL High 74-106 [facility] Comment on above: Result Comment: TALIA GEMENT OF PATIENT CARE PER NURSING PROTOCOL Performed By: #### L 501.080 ####[facility] [address] [place], [address] CBC W/Diff, Automatedon 09-0 2-2024 Absolute Lymph 1.87 X10 3/uL Normal 0.83-4.51 [facility] Comment on above: Performed By: #### L 500.2500, L100.0100 ####[facility] [address] [place], [address] Absolute Neut 3.9 X10 3/uL Normal 2.0-7.7 [facility] Comment on above: Performed By: #### L 500.2500, L100.0100 ####[facility] [address] [place], [address] Basophils/100 WBC (Bld) 0.6 % Normal 0-1 [facility] Comment on above: Performed By: #### L 500.2500, L100.0100 ####[facility] [address] [place], [address] Eosinophils/100 WBC (Bld) 1.4 % Normal 0-5 [facility] Comment on above: Performed By: #### L 500.2500, L100.0100 ####[facility] [address] [place], [address] Erythrocyte distribution width (RBC) [Ratio] 15.2 % High 11.6-14.6 [facility] Comment on above: Performed By: #### L 500.2500, L100.0100 ####[facility] [address] [place], [address] Hematocrit (Bld) [Volume fraction] 34.0 % Low 37-47 [facility] Comment on above: Performed By: #### L 500.2500, L100.0100 ####[facility] [address] [place], [address] Hemoglobin (Bld) [Mass/Vol] 10.8 g/dL Low 12.0-15.0 [facility] Comment on above: Performed By: #### L 500.2500, L100.0100 ####[facility] [address] [place], [address] IG% 0.500 Normal 0.0-0.9 [facility] Comment on above: Result Comment: IG% - Immature Granulocytes (promyelocytes, myelocytes andmetamyelocytes) > 1% indicates that a LEFT SHIFT is Present. Performed By: #### L 500.2500, L100.0100 ####[facility] [address] [place], [address] Lymphocytes/100 WBC (Bld) 29.2 % Normal 19-41 [facility] Comment on above: Performed By: #### L 500.2500, L100.0100 ####[facility] [address] [place], [address] MCH (RBC) [Entitic mass] 27.8 pg Normal 27.0-32.0 [facility] Comment on above: Performed By: #### L 500.2500, L100.0100 ####[facility] [address] [place], [address] MCHC (RBC) [Mass/Vol] 31.8 g/dL Low 32-36 [facility] Comment on above: Performed By: #### L 500.2500, L100.0100 ####[facility] [address] [place], [address] MCV (RBC) [Entitic vol] 87.6 fL Normal 81-99 [facility] Comment on above: Performed By: #### L 500.2500, L100.0100 ####[facility] [address] [place], [address] Monocytes/100 WBC (Bld) 7.8 % Normal 0-10 [facility] Comment on above: Performed By: #### L 500.2500, L100.0100 ####[facility] [address] [place], [address] Neutrophils/100 WBC (Bld) 60.5 % Normal 47-70 [facility] Comment on above: Performed By: #### L 500.2500, L100.0100 ####[facility] [address] [place], [address] Nucleated RBC (Bld) [#/Vol] 0 10*3/uL Normal 0-5 [facility] Comment on above: Performed By: #### L 500.2500, L100.0100 ####[facility] [address] [place], [address] Platelet mean volume (Bld) [Entitic vol] 10.3 fL Normal 6.2-12.0 [facility] Comment on above: Performed By: #### L 500.2500, L100.0100 ####[facility] [address] [place], [address] Platelets (Bld) [#/Vol] 188 10*3/uL Normal 150-450 [facility] Comment on above: Performed By: #### L 500.2500, L100.0100 ####[facility] [address] [place], [address] RBC (Bld) [#/Vol] 3.88 10*6/uL Low 4.2-5.4 [facility] Comment on above: Performed By: #### L 500.2500, L100.0100 ####[facility] [address] [place], [address] RDW SD 48.6 fl High 35.1-43.9 [facility] Comment on above: Performed By: #### L 500.2500, L100.0100 ####[facility] [address] [place], [address] WBC (Bld) [#/Vol] 6.4 10*3/uL Normal 4.4-11.0 [facility] Comment on above: Performed By: #### L 500.2500, L100.0100 ####[facility] [address] [place], [address] Basic Metabolic Profile (BMP )on 02-02-2025 BUN/CRE 29.0 RATIO High 10-20 [facility] Comment on above: Performed By: #### L 500.2500, L100.0500 ####[facility] [address] [place], [address] Calcium [Mass/Vol] 8.4 mg/dL Normal 7.6-11.0 [facility] Comment on above: Performed By: #### L 500.2500, L100.0500 ####[facility] [address] [place], [address] Chloride [Moles/Vol] 107 mmol/L Normal 98-108 [facility] Comment on above: Performed By: #### L 500.2500, L100.0500 ####[facility] [address] [place], [address] CO2 [Moles/Vol] 20.3 mmol/L Low 21.0-32.0 [facility] Comment on above: Performed By: #### L 500.2500, L100.0500 ####[facility] [address] [place], [address] Creatinine [Mass/Vol] 0.86 mg/dL Normal 0.70-1.20 [facility] Comment on above: Performed By: #### L 500.2500, L100.0500 ####[facility] [address] [place], [address] ECRCL 81.38 ml/min Normal 50-250 [facility] Comment on above: Performed By: #### L 500.2500, L100.0500 ####[facility] [address] [place], [address] GAP 9 Normal 5-15 [facility] Comment on above: Performed By: #### L 500.2500, L100.0500 ####[facility] [address] [place], [address] GFR/1.73 sq M.predicted among non-blacks MDRD (S/P/Bld) [Vol rate/Area] 81 mL/min/{1.73_m2} Normal >60 [facility] Comment on above: Result Comment: mL/m in/1.73m2 CKD-EPI Creatinine Equation (2020) Performed By: #### L 500.2500, L100.0500 ####[facility] [address] [place], [address] Glucose [Mass/Vol] 116 mg/dL High 70-99 [facility] Comment on above: Performed By: #### L 500.2500, L100.0500 ####[facility] [address] [place], [address] Potassium [Moles/Vol] 5.0 mmol/L Normal 3.3-5.1 [facility] Comment on above: Performed By: #### L 500.2500, L100.0500 ####[facility] [address] [place], [address] Sodium [Moles/Vol] 137 mmol/L Normal 133-145 [facility] Comment on above: Performed By: #### L 500.2500, L100.0500 ####[facility] [address] [place], [address] Urea nitrogen [Mass/Vol] 25 mg/dL High 4-19 [facility] Comment on above: Performed By: #### L 500.2500, L100.0500 ####[facility] [address] [place], [address] Bedside Glucoseon 02-02-2025 FINGERSTICK GLU 127 mg/dL High 74-106 [facility] Comment on above: Result Comment: TALIA GEMENT OF PATIENT CARE PER NURSING PROTOCOL Performed By: #### L 501.080 ####[facility] [address] [place], [address] FINGERSTICK GLU 190 mg/dL High 74-106 [facility] Comment on above: Result Comment: TALIA GEMENT OF PATIENT CARE PER NURSING PROTOCOL Performed By: #### L 501.080 ####[facility] [address] [place], [address] FINGERSTICK GLU 206 mg/dL High 74-106 [facility] Comment on above: Result Comment: TALIA GEMENT OF PATIENT CARE PER NURSING PROTOCOL Performed By: #### L 501.080 ####[facility] [address] [place], [address] FINGERSTICK GLU 121 mg/dL High 74-106 [facility] Comment on above: Result Comment: TALIA GEMENT OF PATIENT CARE PER NURSING PROTOCOL Performed By: #### L 501.080 ####[facility] [address] [place], [address] FINGERSTICK GLU 120 mg/dL High 74-106 [facility] Comment on above: Result Comment: TALIA GEMENT OF PATIENT CARE PER NURSING PROTOCOL Performed By: #### L 501.080 ####[facility] [address] [place], [address] CBC-Complete Blood Cnt No Di rachael 02-02-2025 Erythrocyte distribution width (RBC) [Ratio] 15.0 % High 11.6-14.6 [facility] Comment on above: Performed By: #### L 500.2500, L100.0500 ####[facility] [address] [place], [address] Hematocrit (Bld) [Volume fraction] 33.3 % Low 37-47 [facility] Comment on above: Performed By: #### L 500.2500, L100.0500 ####[facility] [address] [place], [address] Hemoglobin (Bld) [Mass/Vol] 10.6 g/dL Low 12.0-15.0 [facility] Comment on above: Performed By: #### L 500.2500, L100.0500 ####[facility] [address] [place], [address] MCH (RBC) [Entitic mass] 27.2 pg Normal 27.0-32.0 [facility] Comment on above: Performed By: #### L 500.2500, L100.0500 ####[facility] [address] [place], [address] MCHC (RBC) [Mass/Vol] 31.8 g/dL Low 32-36 [facility] Comment on above: Performed By: #### L 500.2500, L100.0500 ####[facility] [address] [place], [address] MCV (RBC) [Entitic vol] 85.4 fL Normal 81-99 [facility] Comment on above: Performed By: #### L 500.2500, L100.0500 ####[facility] [address] [place], [address] Platelet mean volume (Bld) [Entitic vol] 9.6 fL Normal 6.2-12.0 [facility] Comment on above: Performed By: #### L 500.2500, L100.0500 ####[facility] [address] [place], [address] Platelets (Bld) [#/Vol] 189 10*3/uL Normal 150-450 [facility] Comment on above: Performed By: #### L 500.2500, L100.0500 ####[facility] [address] [place], [address] RBC (Bld) [#/Vol] 3.90 10*6/uL Low 4.2-5.4 [facility] Comment on above: Performed By: #### L 500.2500, L100.0500 ####[facility] [address] [place], [address] RDW SD 46.7 fl High 35.1-43.9 [facility] Comment on above: Performed By: #### L 500.2500, L100.0500 ####[facility] [address] [place], [address] WBC (Bld) [#/Vol] 5.5 10*3/uL Normal 4.4-11.0 [facility] Comment on above: Performed By: #### L 500.2500, L100.0500 ####[facility] [address] [place], [address] Bedside Glucoseon 02-01-2025 FINGERSTICK GLU 158 mg/dL High 74-106 [facility] Comment on above: Result Comment: TALIA GEMENT OF PATIENT CARE PER NURSING PROTOCOL Performed By: #### L 501.080 ####[facility] [address] [place], [address] FINGERSTICK GLU 179 mg/dL High 74-106 [facility] Comment on above: Result Comment: TALIA GEMENT OF PATIENT CARE PER NURSING PROTOCOL Performed By: #### L 501.080 ####[facility] [address] [place], [address] FINGERSTICK GLU 203 mg/dL High 74-106 [facility] Comment on above: Result Comment: TALIA GEMENT OF PATIENT CARE PER NURSING PROTOCOL Performed By: #### L 501.080 ####[facility] [address] [place], [address] FINGERSTICK GLU 172 mg/dL High 74-106 [facility] Comment on above: Result Comment: TALIA GEMENT OF PATIENT CARE PER NURSING PROTOCOL Performed By: #### L 501.080 ####[facility] [address] [place], [address] Amphetamine detection with 1 000 ng/mL as cutoffOrdered By: Latricia Burdick on 01-31-2025 Amphetamines Screen method >1000 ng/mL Ql (U) Negative < 200 ng/mL [facility] Basic Metabolic Profile (BMP )on 01-31-2025 BUN/CRE 21.4 RATIO High 10-20 [facility] Comment on above: Performed By: #### L 501.2300, L501.5200, L500.2500 ####[facility] [address] [place], [address] Calcium [Mass/Vol] 8.8 mg/dL Normal 7.6-11.0 [facility] Comment on above: Performed By: #### L 501.2300, L501.5200, L500.2500 ####[facility] [address] [place], [address] Chloride [Moles/Vol] 103 mmol/L Normal 98-108 [facility] Comment on above: Performed By: #### L 501.2300, L501.5200, L500.2500 ####[facility] [address] [place], [address] CO2 [Moles/Vol] 23.9 mmol/L Normal 21.0-32.0 [facility] Comment on above: Performed By: #### L 501.2300, L501.5200, L500.2500 ####[facility] [address] [place], [address] Creatinine [Mass/Vol] 0.72 mg/dL Normal 0.70-1.20 [facility] Comment on above: Performed By: #### L 501.2300, L501.5200, L500.2500 ####[facility] [address] [place], [address] ECRCL 96.75 ml/min Normal 50-250 [facility] Comment on above: Performed By: #### L 501.2300, L501.5200, L500.2500 ####[facility] [address] [place], [address] GAP 7 Normal 5-15 [facility] Comment on above: Performed By: #### L 501.2300, L501.5200, L500.2500 ####[facility] [address] [place], [address] GFR/1.73 sq M.predicted among non-blacks MDRD (S/P/Bld) [Vol rate/Area] 101 mL/min/{1.73_m2} Normal >60 [facility] Comment on above: Result Comment: mL/m in/1.73m2 CKD-EPI Creatinine Equation (2020) Performed By: #### L 501.2300, L501.5200, L500.2500 ####[facility] [address] [place], [address] Glucose [Mass/Vol] 132 mg/dL High 70-99 [facility] Comment on above: Performed By: #### L 501.2300, L501.5200, L500.2500 ####[facility] [address] [place], [address] Potassium [Moles/Vol] 5.0 mmol/L Normal 3.3-5.1 [facility] Comment on above: Performed By: #### L 501.2300, L501.5200, L500.2500 ####[facility] [address] [place], [address] Sodium [Moles/Vol] 133 mmol/L Normal 133-145 [facility] Comment on above: Performed By: #### L 501.2300, L501.5200, L500.2500 ####[facility] [address] [place], [address] Urea nitrogen [Mass/Vol] 15 mg/dL Normal 4-19 [facility] Comment on above: Performed By: #### L 501.2300, L501.5200, L500.2500 ####[facility] [address] [place], [address] Bedside Glucoseon 01-31-2025 FINGERSTICK GLU 164 mg/dL High 74-106 [facility] Comment on above: Result Comment: TALIA GEMENT OF PATIENT CARE PER NURSING PROTOCOL Performed By: #### L 501.080 ####[facility] [address] [place], [address] FINGERSTICK GLU 165 mg/dL High 74-106 [facility] Comment on above: Result Comment: TALIA GEMENT OF PATIENT CARE PER NURSING PROTOCOL Performed By: #### L 501.080 ####[facility] [address] [place], [address] FINGERSTICK GLU 155 mg/dL High 74-106 [facility] Comment on above: Result Comment: TALIA GEMENT OF PATIENT CARE PER NURSING PROTOCOL Performed By: #### L 501.080 ####[facility] [address] [place], [address] FINGERSTICK GLU 155 mg/dL High 74-106 [facility] Comment on above: Result Comment: TALIA GEMENT OF PATIENT CARE PER NURSING PROTOCOL Performed By: #### L 501.080 ####[facility] [address] [place], [address] Bilirubin Test strip Ql (U)O rdered By: Latricia Burdick on 01-31-2025 Bilirubin Ql (U) Negative Negative [facility] CBC W/Diff, Automatedon 01-04 Absolute Lymph 2.36 X10 3/uL Normal 0.83-4.51 [facility] Comment on above: Performed By: #### L 100.0100 ####[facility] [address] [place], [address] Absolute Neut 4.7 X10 3/uL Normal 2.0-7.7 [facility] Comment on above: Performed By: #### L 100.0100 ####[facility] [address] [place], [address] Basophils/100 WBC (Bld) 0.6 % Normal 0-1 [facility] Comment on above: Performed By: #### L 100.0100 ####[facility] [address] [place], [address] Eosinophils/100 WBC (Bld) 1.2 % Normal 0-5 [facility] Comment on above: Performed By: #### L 100.0100 ####[facility] [address] [place], [address] Erythrocyte distribution width (RBC) [Ratio] 14.5 % Normal 11.6-14.6 [facility] Comment on above: Performed By: #### L 100.0100 ####[facility] [address] [place], [address] Hematocrit (Bld) [Volume fraction] 39.6 % Normal 37-47 [facility] Comment on above: Performed By: #### L 100.0100 ####[facility] [address] [place], [address] Hemoglobin (Bld) [Mass/Vol] 12.6 g/dL Normal 12.0-15.0 [facility] Comment on above: Performed By: #### L 100.0100 ####[facility] [address] [place], [address] IG% 0.400 Normal 0.0-0.9 [facility] Comment on above: Result Comment: IG% - Immature Granulocytes (promyelocytes, myelocytes andmetamyelocytes) > 1% indicates that a LEFT SHIFT is Present. Performed By: #### L 100.0100 ####[facility] [address] [place], [address] Lymphocytes/100 WBC (Bld) 30.6 % Normal 19-41 [facility] Comment on above: Performed By: #### L 100.0100 ####[facility] [address] [place], [address] MCH (RBC) [Entitic mass] 27.0 pg Normal 27.0-32.0 [facility] Comment on above: Performed By: #### L 100.0100 ####[facility] [address] [place], [address] MCHC (RBC) [Mass/Vol] 31.8 g/dL Low 32-36 [facility] Comment on above: Performed By: #### L 100.0100 ####[facility] [address] [place], [address] MCV (RBC) [Entitic vol] 84.8 fL Normal 81-99 [facility] Comment on above: Performed By: #### L 100.0100 ####[facility] [address] [place], [address] Monocytes/100 WBC (Bld) 7.0 % Normal 0-10 [facility] Comment on above: Performed By: #### L 100.0100 ####[facility] [address] [place], [address] Neutrophils/100 WBC (Bld) 60.2 % Normal 47-70 [facility] Comment on above: Performed By: #### L 100.0100 ####[facility] [address] [place], [address] Nucleated RBC (Bld) [#/Vol] 0 10*3/uL Normal 0-5 [facility] Comment on above: Performed By: #### L 100.0100 ####[facility] [address] [place], [address] Platelet mean volume (Bld) [Entitic vol] 9.5 fL Normal 6.2-12.0 [facility] Comment on above: Performed By: #### L 100.0100 ####[facility] [address] [place], [address] Platelets (Bld) [#/Vol] 228 10*3/uL Normal 150-450 [facility] Comment on above: Performed By: #### L 100.0100 ####[facility] [address] [place], [address] RBC (Bld) [#/Vol] 4.67 10*6/uL Normal 4.2-5.4 [facility] Comment on above: Performed By: #### L 100.0100 ####[facility] [address] [place], [address] RDW SD 44.3 fl High 35.1-43.9 [facility] Comment on above: Performed By: #### L 100.0100 ####[facility] [address] [place], [address] WBC (Bld) [#/Vol] 7.7 10*3/uL Normal 4.4-11.0 [facility] Comment on above: Performed By: #### L 100.0100 ####[facility] [address] [place], [address] Ketones Test strip Ql (U)Ord ered By: Latricia Burdick on 01-31-2025 Ketones Ql (U) Negative Negative [facility] Magnesiumon 01-31-2025 Magnesium [Mass/Vol] 2.0 mg/dL Normal 1.5-2.2 [facility] Comment on above: Performed By: #### L 501.2300, L501.5200, L500.2500 ####[facility] [address] [place], [address] Magnesium measurement (mass/ volume)Ordered By: Nicole Trujillo on 01-31-2025 Magnesium (Unsp spec) [Mass/Vol] 2.0 mg/dL 1.5-2.2 [facility] Mucus LM Ql (Urine sed)Order ed By: Latricia Burdick on 01-31-2025 Mucus Ql (Urine sed) 0 SEEN /hpf [facility] Nitrite Test strip Ql (U)Ord ered By: Latricia Burdick on 01-31-2025 Nitrite Ql (U) Negative Negative [facility] No Panel InformationOrdered By: Latricia Burdick on 01-31-2025 Positive < 100 ng/mL [facility] Negative < 200 ng/mL [facility] Phosphoruson 01-31-2025 Phosphate [Mass/Vol] 4.0 mg/dL Normal 2.7-4.5 [facility] Comment on above: Performed By: #### L 501.2300, L501.5200, L500.2500 ####[facility] [address], [address] Protein Test strip Ql (U)Ord ered By: Latricia Burdick on 01-31-2025 Protein Ql (U) 30 mg/dl High Negative [facility] Screening urine fentanyl trudi surementOrdered By: Latricia Burdick on 01-31-2025 fentaNYL Screen Ql (U) Negative <5 ng/mL [facility] Squamous epithelial cells de tection in urine sediment by light microscopyOrdered By: Latricia Burdick on 01-31-2025 Epithelial cells.squamous LM Ql (Urine sed) 5-10 SEEN /hpf 5-10 [facility] Transitional cells detection in urine sediment by light microscopyOrdered By: Latricia Burdick on 01-31-2025 Transitional cells LM Ql (Urine sed) 0-5 SEEN /hpf 0-5 [facility] Urinalysis, Completeon 01-31 BACTERIA 1+ /hpf Normal None Seen [facility] Comment on above: Order Comment: CLEAN CATCH Performed By: #### L 400.0001 ####[facility] [address] [place], [address] EPI,SQUAMOUS 5-10 SEEN Normal 5-10 [facility] Comment on above: Order Comment: CLEAN CATCH Performed By: #### L 400.0001 ####[facility] [address] [place], [address] EPI,TRANSITION 0-5 SEEN Normal 0-5 [facility] Comment on above: Order Comment: CLEAN CATCH Performed By: #### L 400.0001 ####[facility] [address] [place], [address] WBC 0-5 SEEN Normal 0-5 [facility] Comment on above: Order Comment: CLEAN CATCH Performed By: #### L 400.0001 ####[facility] [address] [place], [address] YEAST 1+ /hpf Normal None Seen [facility] Comment on above: Order Comment: CLEAN CATCH Performed By: #### L 400.0001 ####[facility] [address] [place], [address] Mucus Ql (Urine sed) 0 SEEN Normal [facility] Comment on above: Order Comment: CLEAN CATCH Performed By: #### L 400.0001 ####[facility] [address] [place], [address] RBC 0 SEEN Normal 0-5 [facility] Comment on above: Order Comment: CLEAN CATCH Performed By: #### L 400.0001 ####[facility] [address] [place], [address] Urine Drug Screen (VISTA)on 01-31-2025 AMPHETAMINES Negative Normal <1000 ng/mL [facility] Comment on above: Performed By: #### L 505.5000, L501.9100, L503.0106 ####[facility] [address] [facility] [address] BARBITIURATES Negative Normal < 200 ng/mL [facility] Comment on above: Performed By: #### L 505.5000, L501.9100, L503.0106 ####[facility] [address] [facility] [address] BENZODIAZIPINE Negative Normal < 200 ng/mL [facility] Comment on above: Performed By: #### L 505.5000, L501.9100, L503.0106 ####[facility] [address] [place], [address] BUP Ur Drug Scr Negative Normal < 200 ng/mL [facility] Comment on above: Performed By: #### L 505.5000, L501.9100, L503.0106 ####[facility] [address] [place], [address] COCAINE Negative Normal < 300 ng/mL [facility] Comment on above: Performed By: #### L 505.5000, L501.9100, L503.0106 ####[facility] [address] [facility] [address] Fentanyl Negative Normal <5 ng/mL [facility] Comment on above: Result Comment: CONF IRMATORY TESTING FOR ALL POSITIVE URINE DRUG SCREENRESULTS WILL ONLY BE SENT OUT UPON PHYSICIAN ORDER.[place] Pro Urine Drug Screen methods provide only preliminaryanalytical test results. A more specific alternate chemicalmethod must be used in order to obtain a confirmedanalytical result. Gas chromatography/mass spectrometery(GC/MS) is the preferred confirmatory method. Clinicalconsideration and professional judgement should be appliedto any drug of abuse test result, particularly whenpreliminary positive results are used.Urine TCA testing must be ordered separately. Use testmnemonic: UTCA Performed By: #### L 505.5000, L501.9100, L503.0106 ####[facility] [address] [facility] [address] METHADONE Negative Normal < 300 ng/mL [facility] Comment on above: Performed By: #### L 505.5000, L501.9100, L503.0106 ####[facility] [address] [place] [id number] OPIATES Positive Normal < 300 ng/mL [facility] Comment on above: Result Comment: If c onfirmation testing is needed, a separate order will berequired to send out testing to the reference laboratory. Performed By: #### L 505.5000, L501.9100, L503.0106 ####[facility] [address] [place] [id number] OXYCODONE Positive Normal < 100 ng/mL [facility] Comment on above: Result Comment: If c onfirmation testing is needed, a separate order will berequired to send out testing to the reference laboratory. Performed By: #### L 505.5000, L501.9100, L503.0106 ####[facility] [address] [facility] [address] PCP Negative Normal < 25 ng/mL [facility] Comment on above: Performed By: #### L 505.5000, L501.9100, L503.0106 ####[facility] [address] [place] [id number] THC Positive Normal < 50 ng/mL [facility] Comment on above: Result Comment: If c onfirmation testing is needed, a separate order will berequired to send out testing to the reference laboratory. Performed By: #### L 505.5000, L501.9100, L503.0106 ####[facility] [address] [place], [address] Urine clarityOrdered By: Cuco Burdick on 01-31-2025 Clarity (U) Clear Clear [facility] Urine color determinationOrd ered By: Latricia Burdick on 01-31-2025 Color (U) Yellow Yellow [facility] Urine glucose detectionOrder ed By: Latricia Burdick on 01-31-2025 Glucose Ql (U) Normal mg/dl Normal [facility] Urine leukocyte esterase det ection by dipstickOrdered By: Latricia Burdick on 01-31-2025 Leukocyte esterase Test strip Ql (U) 25 /ul High Negative [facility] Urine pHOrdered By: Latricia mack on 01-31-2025 pH (U) 6.5 [pH] 5.0 - 8.0 [facility] Urine phencyclidine (PCP) de tectionOrdered By: Latricia Burdick on 01-31-2025 Phencyclidine Ql (U) Negative < 25 ng/mL [facility] Urine sediment bacteria coun t by microscopy (number/high power field)Ordered By: Latricia Burdick on 01-31-2025 Bacteria LM.HPF (Urine sed) [#/Area] 1 /[HPF] None Seen [facility] Urine sediment yeast count b y microscopy (number/high powered field)Ordered By: Latricia Burdick on 01-31-2025 Yeast LM.HPF (Urine sed) [#/Area] 1 /[HPF] None Seen [facility] Urine specific gravity measu rementOrdered By: Latricia Burdick on 01-31-2025 Specific gravity (U) [Rel density] 1.010 1.002-1.03 0 [facility] Urine urobilinogen measureme ntOrdered By: Latricia Burdick on 01-31-2025 Urobilinogen Ql (U) Normal mg/dl Normal [facility] White blood cell countOrdere d By: Latricia Burdick on 01-31-2025 White blood cell count 0-5 SEEN /hpf 0-5 [facility] Alcohol, Blood (Medical)-Ser umon 01-30-2025 SERUM ETOH < 10.1 Normal <=10.0 [facility] Comment on above: Result Comment: This test is for medical purposes only. The legaldefinition of intoxication varies according to local law. Performed By: #### L 505.5000, L501.9100, L503.0106 ####[facility] [address] [place], [address] Bedside Glucoseon 01-30-2025 FINGERSTICK GLU 233 mg/dL High [address] [place] [address] Comment on above: Result Comment: TALIA GEMENT OF PATIENT CARE PER NURSING PROTOCOL Performed By: #### L 501.080 ####[facility] [address] [place], [address] FINGERSTICK GLU 136 mg/dL High [address] [place] [address] Comment on above: Result Comment: TALIA GEMENT OF PATIENT CARE PER NURSING PROTOCOL Performed By: #### L 501.080 ####[facility] [address] [place], [address] FINGERSTICK GLU 259 mg/dL High [address] [place] [address] Comment on above: Result Comment: TALIA GEMENT OF PATIENT CARE PER NURSING PROTOCOL Performed By: #### L 501.080 ####[facility] [address] [place], [address] FINGERSTICK GLU 395 mg/dL High [address] [place] [address] Comment on above: Result Comment: TALIA GEMENT OF PATIENT CARE PER NURSING PROTOCOL Performed By: #### L 501.080 ####[facility] [address] [place], [address] Bilirubin, totalOrdered By: Latricia Burdick on 01-30-2025 Bilirubin [Mass/Vol] 0.54 mg/dL 0.00-1.30 [facility] CBC W/Diff, Automatedon 01-03 Absolute Lymph 2.10 X10 3/uL Normal 0.83-4.51 [facility] Comment on above: Performed By: #### L 100.0100, L500.4050, L501.2300, L500.4100 ####[facility] [address] [place], [address] Absolute Neut 4.0 X10 3/uL Normal 2.0-7.7 [facility] Comment on above: Performed By: #### L 100.0100, L500.4050, L501.2300, L500.4100 ####[facility] [address] [place], [address] Basophils/100 WBC (Bld) 0.7 % Normal 0-1 [facility] Comment on above: Performed By: #### L 100.0100, L500.4050, L501.2300, L500.4100 ####[facility] [address] [place], [address] Eosinophils/100 WBC (Bld) 1.3 % Normal 0-5 [facility] Comment on above: Performed By: #### L 100.0100, L500.4050, L501.2300, L500.4100 ####[facility] [address] [place], [address] Erythrocyte distribution width (RBC) [Ratio] 14.6 % Normal 11.6-14.6 [facility] Comment on above: Performed By: #### L 100.0100, L500.4050, L501.2300, L500.4100 ####[facility] [address] [place], [address] Hematocrit (Bld) [Volume fraction] 39.6 % Normal 37-47 [facility] Comment on above: Performed By: #### L 100.0100, L500.4050, L501.2300, L500.4100 ####[facility] [address] [place], [address] Hemoglobin (Bld) [Mass/Vol] 12.7 g/dL Normal 12.0-15.0 [facility] Comment on above: Performed By: #### L 100.0100, L500.4050, L501.2300, L500.4100 ####[facility] [address] [place], [address] IG% 0.300 Normal 0.0-0.9 [facility] Comment on above: Result Comment: IG% - Immature Granulocytes (promyelocytes, myelocytes andmetamyelocytes) > 1% indicates that a LEFT SHIFT is Present. Performed By: #### L 100.0100, L500.4050, L501.2300, L500.4100 ####[facility] [address] [place], [address] Lymphocytes/100 WBC (Bld) 31.3 % Normal 19-41 [facility] Comment on above: Performed By: #### L 100.0100, L500.4050, L501.2300, L500.4100 ####[facility] [address] [place], [address] MCH (RBC) [Entitic mass] 27.2 pg Normal 27.0-32.0 [facility] Comment on above: Performed By: #### L 100.0100, L500.4050, L501.2300, L500.4100 ####[facility] [address] [place], [address] MCHC (RBC) [Mass/Vol] 32.1 g/dL Normal 32-36 [facility] Comment on above: Performed By: #### L 100.0100, L500.4050, L501.2300, L500.4100 ####[facility] [address] [place], [address] MCV (RBC) [Entitic vol] 84.8 fL Normal 81-99 [facility] Comment on above: Performed By: #### L 100.0100, L500.4050, L501.2300, L500.4100 ####[facility] [address] [place], [address] Monocytes/100 WBC (Bld) 6.7 % Normal 0-10 [facility] Comment on above: Performed By: #### L 100.0100, L500.4050, L501.2300, L500.4100 ####[facility] [address] [place], [address] Neutrophils/100 WBC (Bld) 59.7 % Normal 47-70 [facility] Comment on above: Performed By: #### L 100.0100, L500.4050, L501.2300, L500.4100 ####[facility] [address] [place], [address] Nucleated RBC (Bld) [#/Vol] 0 10*3/uL Normal 0-5 [facility] Comment on above: Performed By: #### L 100.0100, L500.4050, L501.2300, L500.4100 ####[facility] [address] [place], [address] Platelet mean volume (Bld) [Entitic vol] 10.2 fL Normal 6.2-12.0 [facility] Comment on above: Performed By: #### L 100.0100, L500.4050, L501.2300, L500.4100 ####[facility] [address] [place], [address] Platelets (Bld) [#/Vol] 209 10*3/uL Normal 150-450 [facility] Comment on above: Performed By: #### L 100.0100, L500.4050, L501.2300, L500.4100 ####[facility] [address] [place], [address] RBC (Bld) [#/Vol] 4.67 10*6/uL Normal 4.2-5.4 [facility] Comment on above: Performed By: #### L 100.0100, L500.4050, L501.2300, L500.4100 ####[facility] [address] [place], [address] RDW SD 44.7 fl High 35.1-43.9 [facility] Comment on above: Performed By: #### L 100.0100, L500.4050, L501.2300, L500.4100 ####[facility] [address] [place], [address] WBC (Bld) [#/Vol] 6.7 10*3/uL Normal 4.4-11.0 [facility] Comment on above: Performed By: #### L 100.0100, L500.4050, L501.2300, L500.4100 ####[facility] [address] [place], [address] Calculated very low density lipoprotein (VLDL) cholesterol measurementOrdered By: Latricia Burdick on 01-30-2025 Calculated very low density lipoprotein (VLDL) cholesterol measurement 57 mg/dL High 5-40 [facility] Comprehensive Metabolic Prof ilon 01-30-2025 Albumin [Mass/Vol] 3.0 g/dL Low 3.5-5.0 [facility] Comment on above: Performed By: #### L 100.0100, L500.4050, L501.2300, L500.4100 ####[facility] [address] [place], [address] Albumin/Globulin [Mass ratio] 1.2 {ratio} Normal 0.9-2.4 [facility] Comment on above: Performed By: #### L 100.0100, L500.4050, L501.2300, L500.4100 ####[facility] [address] [place], [address] ALK PHOS 110 U/L High 35-104 [facility] Comment on above: Performed By: #### L 100.0100, L500.4050, L501.2300, L500.4100 ####[facility] [address] [place], [address] ALT [Catalytic activity/Vol] 11 U/L Normal <=34 [facility] Comment on above: Performed By: #### L 100.0100, L500.4050, L501.2300, L500.4100 ####[facility] [address] [place], [address] AST [Catalytic activity/Vol] 17 U/L Normal <=31 [facility] Comment on above: Performed By: #### L 100.0100, L500.4050, L501.2300, L500.4100 ####[facility] [address] [place], [address] Bilirubin [Mass/Vol] 0.54 mg/dL Normal 0.00-1.30 [facility] Comment on above: Performed By: #### L 100.0100, L500.4050, L501.2300, L500.4100 ####[facility] [address] [place], [address] BUN/CRE 12.6 RATIO Normal 10-20 [facility] Comment on above: Performed By: #### L 100.0100, L500.4050, L501.2300, L500.4100 ####[facility] [address] [place], [address] Calcium [Mass/Vol] 8.4 mg/dL Normal 7.6-11.0 [facility] Comment on above: Performed By: #### L 100.0100, L500.4050, L501.2300, L500.4100 ####[facility] [address] [place], [address] Chloride [Moles/Vol] 99 mmol/L Normal 98-108 [facility] Comment on above: Performed By: #### L 100.0100, L500.4050, L501.2300, L500.4100 ####[facility] [address] [place], [address] CO2 [Moles/Vol] 22.7 mmol/L Normal 21.0-32.0 [facility] Comment on above: Performed By: #### L 100.0100, L500.4050, L501.2300, L500.4100 ####[facility] [address] [place], [address] Creatinine [Mass/Vol] 0.65 mg/dL Low 0.70-1.20 [facility] Comment on above: Performed By: #### L 100.0100, L500.4050, L501.2300, L500.4100 ####[facility] [address] [place], [address] ECRCL 107.23 ml/min Normal 50-250 [facility] Comment on above: Performed By: #### L 100.0100, L500.4050, L501.2300, L500.4100 ####[facility] [address] [place], [address] GAP 10 Normal 5-15 [facility] Comment on above: Performed By: #### L 100.0100, L500.4050, L501.2300, L500.4100 ####[facility] [address] [place], [address] GFR/1.73 sq M.predicted among non-blacks MDRD (S/P/Bld) [Vol rate/Area] 105 mL/min/{1.73_m2} Normal >60 [facility] Comment on above: Result Comment: mL/m in/1.73m2 CKD-EPI Creatinine Equation (2020) Performed By: #### L 100.0100, L500.4050, L501.2300, L500.4100 ####[facility] [address] [place], [address] Globulin (S) [Mass/Vol] 2.6 g/dL Normal 2.2-4.2 [facility] Comment on above: Performed By: #### L 100.0100, L500.4050, L501.2300, L500.4100 ####[facility] [address] [place], [address] Glucose [Mass/Vol] 385 mg/dL High 70-99 [facility] Comment on above: Performed By: #### L 100.0100, L500.4050, L501.2300, L500.4100 ####[facility] [address] [place], [address] Potassium [Moles/Vol] 3.9 mmol/L Normal 3.3-5.1 [facility] Comment on above: Performed By: #### L 100.0100, L500.4050, L501.2300, L500.4100 ####[facility] [address] [place], [address] Sodium [Moles/Vol] 132 mmol/L Low 133-145 [facility] Comment on above: Performed By: #### L 100.0100, L500.4050, L501.2300, L500.4100 ####[facility] [address] [place], [address] T PROT 5.5 g/dL Low 5.9-8.4 [facility] Comment on above: Performed By: #### L 100.0100, L500.4050, L501.2300, L500.4100 ####[facility] [address] [place], [address] Urea nitrogen [Mass/Vol] 8 mg/dL Normal 4-19 [facility] Comment on above: Performed By: #### L 100.0100, L500.4050, L501.2300, L500.4100 ####[facility] [address] [place], [address] Folates,Serum (Folic Acid)on 01-30-2025 FOLATES,SERUM 11.90 ng/mL Normal 4.60-34.80 [facility] Comment on above: Result Comment: Hemo lysis, Results will be affected, Requires Recollection. Performed By: #### L 506.0200 ####[facility] [address] [place], [address] LDL calc ser/plasOrdered By: Latricia Burdick on 01-30-2025 Cholesterol in LDL [Mass/Vol] 82 mg/dL [facility] Lipid Profileon 01-30-2025 CHOL:HDL 4.53 Normal [facility] Comment on above: Performed By: #### L 100.0100, L500.4050, L501.2300, L500.4100 ####[facility] [address], [address] Cholesterol [Mass/Vol] 178 mg/dL Normal <=200 [facility] Comment on above: Result Comment: Chol esterol level, Desirable <200 mg/dLBorderline high cholesterol 200-239 mg/dLHigh cholesterol >=240 mg/dLRecommendations of the NCEP Adult Treatment Panel for thefollowing risk-cutoff thresholds for the [place] Americanpulation. Performed By: #### L 100.0100, L500.4050, L501.2300, L500.4100 ####[facility] [address] [place], [address] Cholesterol in HDL [Mass/Vol] 39 mg/dL Low [facility] Comment on above: Result Comment: Aleyda onal Cholesterol Education Program (NCEP) guidelines:<40 mg/dL: Low HDL-cholesterol (major risk factor for CHD)>= 60 mg/dL: High HDL-cholesterol (negative risk factor forCHD)HDL-cholesterol is affected by a number of factors, e.g.smoking, exercise, hormones, sex and age. Performed By: #### L 100.0100, L500.4050, L501.2300, L500.4100 ####[facility] [address] [place], [address] Cholesterol in LDL [Mass/Vol] 82 mg/dL Normal [facility] Comment on above: Result Comment: Bord hvnykw=141-910 mg/dL Higher Hfgb=782 mg/dL or greaterFriedwald Equation for LDL-C Performed By: #### L 100.0100, L500.4050, L501.2300, L500.4100 ####[facility] [address] [place], [address] Cholesterol in VLDL [Mass/Vol] 57 mg/dL High 5-40 [facility] Comment on above: Performed By: #### L 100.0100, L500.4050, L501.2300, L500.4100 ####[facility] [address] [place], [address] Triglyceride [Mass/Vol] 284 mg/dL High [facility] Comment on above: Result Comment: The drugs N-Acetylcysteine and Metamizole may falselydepress this assay.Normal range: <150 mg/dLBorderline High: 150-199 mg/dLHigh: 200-499 mg/dLVery High: >500 mg/dL Performed By: #### L 100.0100, L500.4050, L501.2300, L500.4100 ####[facility] [address] [place], [address] No Panel InformationOrdered By: Latricia Burdick on 01-30-2025 17 U/L <32 [facility] Phosphoruson 01-30-2025 Phosphate [Mass/Vol] 3.2 mg/dL Normal 2.7-4.5 [facility] Comment on above: Performed By: #### L 100.0100, L500.4050, L501.2300, L500.4100 ####[facility] [address] [place], [address] Serum globulin measurementOr dered By: Latricia Burdick on 01-30-2025 Globulin (S) [Mass/Vol] 2.6 g/dL 2.2-4.2 [facility] Serum or plasma alanine hamilton otransferase (ALT) measurementOrdered By: Latricia Burdick on 01-30-2025 ALT [Catalytic activity/Vol] 11 U/L <35 [facility] Serum or plasma albumin xiomara urement (mass/volume)Ordered By: Latricia Burdick on 01-30-2025 Albumin [Mass/Vol] 3.0 g/dL Low 3.5-5.0 [facility] Serum or plasma albumin/glob ulin mass ratioOrdered By: Latricia Burdick on 01-30-2025 Albumin/Globulin [Mass ratio] 1.2 {ratio} 0.9-2.4 [facility] Serum or plasma alkaline sabiha sphatase measurementOrdered By: Latricia Burdick on 01-30-2025 ALP [Catalytic activity/Vol] 110 U/L High 35-104 [facility] Serum or plasma cholesterol in HDL measurement (mass/volume)Ordered By: Latricia Burdick on 01-30-2025 Cholesterol in HDL [Mass/Vol] 39 mg/dL Low >40 [facility] Serum or plasma cholesterol measurement (mass/volume)Ordered By: Latricia Burdick on 01-30-2025 Cholesterol [Mass/Vol] 178 mg/dL <201 [facility] Total proteinOrdered By: Cuco Burdick on 01-30-2025 Protein [Mass/Vol] 5.5 g/dL Low 5.9-8.4 [facility] Vitamin B12on 01-30-2025 Cobalamin (Vitamin B12) [Mass/Vol] 344 pg/mL Normal 180-914 [facility] Comment on above: Performed By: #### L 505.5000, L501.9100, L503.0106 ####[facility] [address] [place], [address] Absolute lymphocyte countOrd ered By: Martina Martínez on 01-29-2025 Lymphocytes Auto (Unsp spec) [#/Vol] 1.44 10*3/uL 0.83-4.51 [facility] Absolute neutrophil countOrd ered By: Martina Martínez on 01-29-2025 Neutrophils (Bld) [#/Vol] 5.9 10*3/uL 2.0-7.7 [facility] Anion gap in Serum or Plasma Ordered By: Martina Martínez on 01-29-2025 Anion gap [Moles/Vol] 10 mmol/L 5-15 [facility] Automated blood erythrocyte countOrdered By: Martina Martínez on 01-29-2025 RBC (Bld) [#/Vol] 5.24 10*6/uL Normal 4.2-5.4 [facility] Comment on above: Performed By: #### L 501.6710, L500.2500, L100.0100 ####[facility] [address] [place], [address] Automated blood hematocrit ( percentage)Ordered By: Martina Martínez on 01-29-2025 Hematocrit (Bld) [Volume fraction] 43.4 % Normal 37-47 [facility] Comment on above: Performed By: #### L 501.6710, L500.2500, L100.0100 ####[facility] [address] [place], [address] Automated lymphocyte count a s percentage of total leukocytesOrdered By: Martina Martínez on 01-29-2025 Lymphocytes/100 WBC Auto (Unsp spec) 18.4 % Low 19-41 [facility] BUN/creatinine ratioOrdered By: Martina Martínez on 01-29-2025 Urea nitrogen/Creatinine [Mass ratio] 9.0 mg/mg Low 10-20 [facility] Basic Metabolic Profile (BMP )on 01-29-2025 BUN/CRE 9.0 RATIO Low 10- [facility] Comment on above: Performed By: #### L 501.6710, L500.2500, L100.0100 ####[facility] [address] [place], [address] ECRCL 104.07 ml/min Normal 50-250 [facility] Comment on above: Performed By: #### L 501.6710, L500.2500, L100.0100 ####[facility] [address] [place], [address] GAP 10 Normal 5-15 [facility] Comment on above: Performed By: #### L 501.6710, L500.2500, L100.0100 ####[facility] [address] [place], [address] Potassium [Moles/Vol] 4.1 mmol/L Normal 3.3-5.1 [facility] Comment on above: Performed By: #### L 501.6710, L500.2500, L100.0100 ####[facility] [address] [place], [address] Basophil percentageOrdered B y: Martina Martínez on 01-29-2025 Basophils/100 WBC (Bld) 0.8 % Normal 0-1 [facility] Comment on above: Performed By: #### L 501.6710, L500.2500, L100.0100 ####[facility] [address] [place], [address] Bedside Glucoseon 01-29-2025 FINGERSTICK GLU 241 mg/dL High 74-106 [facility] Comment on above: Result Comment: TALIA CHAMBERS OF PATIENT CARE PER NURSING PROTOCOL Performed By: #### L 501.080 ####[facility] [address] [place], [address] CBC W/Diff, Automatedon 08- Absolute Lymph 1.44 X10 3/uL Normal 0.83-4.51 [facility] Comment on above: Performed By: #### L 501.6710, L500.2500, L100.0100 ####[facility] [address] [place], [address] Absolute Neut 5.9 X10 3/uL Normal 2.0-7.7 [facility] Comment on above: Performed By: #### L 501.6710, L500.2500, L100.0100 ####[facility] [address] [place], [address] IG% 0.500 Normal 0.0-0.9 [facility] Comment on above: Result Comment: IG% - Immature Granulocytes (promyelocytes, myelocytes andmetamyelocytes) > 1% indicates that a LEFT SHIFT is Present. Performed By: #### L 501.6710, L500.2500, L100.0100 ####[facility] [address] [place], [address] Lymphocytes/100 WBC (Bld) 18.4 % Low 19-41 [facility] Comment on above: Performed By: #### L 501.6710, L500.2500, L100.0100 ####[facility] [address] [place], [address] Nucleated RBC (Bld) [#/Vol] 0 10*3/uL Normal 0-5 [facility] Comment on above: Performed By: #### L 501.6710, L500.2500, L100.0100 ####[facility] [address] [place], [address] RDW SD 42.9 fl Normal 35.1-43.9 [facility] Comment on above: Performed By: #### L 501.6710, L500.2500, L100.0100 ####[facility] [address] [place], [address] CRPon 01-29-2025 C-REACTIVE PROT < 3.00 Normal 0.0-3.0 [facility] Comment on above: Performed By: #### L 501.6710, L500.2500, L100.0100 ####[facility] [address] [place], [address] Carbon dioxide, total [Moles /volume] in Central venous bloodOrdered By: Martina Martínez on 01-29-2025 CO2 [Moles/Vol] 23.8 mmol/L Normal 21.0-32.0 [facility] Comment on above: Performed By: #### L 501.6710, L500.2500, L100.0100 ####[facility] [address] [place], [address] Chloride assayOrdered By: Rickey Martínez on 01-29-2025 Chloride [Moles/Vol] 99 mmol/L Normal 98-108 [facility] Comment on above: Performed By: #### L 501.6710, L500.2500, L100.0100 ####[facility] [address] [place], [address] Emergency Department Summary on 01-29-2025 Emergency Department Summary Normal [facility] Eosinophil percentageOrdered By: Martina Martínez on 01-29-2025 Eosinophils/100 WBC (Bld) 0.4 % Normal 0-5 [facility] Comment on above: Performed By: #### L 501.6710, L500.2500, L100.0100 ####[facility] [address] [place], [address] Erythrocyte distribution wid th ratioOrdered By: Martina Martínez on 01-29-2025 Erythrocyte distribution width (RBC) [Ratio] 14.4 % Normal 11.6-14.6 [facility] Comment on above: Performed By: #### L 501.6710, L500.2500, L100.0100 ####[facility] [address] [place], [address] Erythrocyte distribution wid th standard deviationOrdered By: Martina Martínez on 01-29-2025 Erythrocyte distribution width (RBC) [Ratio] 42.9 fl 35.1-43.9 [facility] Folate [Moles/volume] in Ser um or PlasmaOrdered By: Latricia Burdick on 01-29-2025 Folate [Moles/Vol] 11.90 ng/mL 4.60-34.80 [facility] Glomerular filtration rate ( GFR) estimation/1.73 sq m using serum, plasma, or whole bOrdered By: Martina Martínez on 01-29-2025 GFR/1.73 sq M.predicted among non-blacks MDRD (S/P/Bld) [Vol rate/Area] 105 mL/min/{1.73_m2} Normal >60 [facility] Comment on above: mL/min/1.73m2 CKD-EP I Creatinine Equation (2020) Result Comment: mL/m in/1.73m2 CKD-EPI Creatinine Equation (2020) Performed By: #### L 501.6710, L500.2500, L100.0100 ####[facility] [address] [place], [place], [address] H AND P Exam - Hospitaliston 01-29-2025 H&P Exam - Hospitalist Normal [facility] HIP, UNI W/ Pelvis 2-3 Views on 01-29-2025 HIP, UNI W/ Pelvis 2-3 Views Normal [facility] Hemoglobin A1c percentageOrd ered By: Latricia Burdick on 01-29-2025 HbA1c (Bld) [Mass fraction] 13.2 % High <=5.6 [facility] Comment on above: Normal < 5.7 % Predi abetic 5.7 - 6.4 % Diabetic >or= 6.5 % Please note range changes. Result Comment: Norm al < 5.7 % Prediabetic 5.7 - 6.4 % Diabetic >or= 6.5 % Please note range changes. Performed By: #### L 501.9520, L501.5200, L501.9991 ####[facility] [address] [place], [place], [address] Hemoglobin measurementOrdere d By: Martina Martínez on 01-29-2025 Hemoglobin (Bld) [Mass/Vol] 14.3 g/dL Normal 12.0-15.0 [facility] Comment on above: Performed By: #### L 501.6710, L500.2500, L100.0100 ####[facility] [address] [place], [address] Immature granulocytes/100 WB C Auto (Bld)Ordered By: Martina Martínez on 01-29-2025 Immature granulocytes/100 WBC (Bld) 0.500 % 0.0-0.9 [facility] Comment on above: IG% - Immature Granu locytes (promyelocytes, myelocytes and metamyelocytes) > 1% indicates that a LEFT SHIFT is Present. MCV (mean corpuscular volume ) determinationOrdered By: Martina Martínez on 01-29-2025 MCV (RBC) [Entitic vol] 82.8 fL Normal 81-99 [facility] Comment on above: Performed By: #### L 501.6710, L500.2500, L100.0100 ####[facility] [address] [place], [address] Magnesiumon 01-29-2025 Magnesium [Mass/Vol] 2.0 mg/dL Normal 1.5-2.2 [facility] Comment on above: Performed By: #### L 501.9520, L501.5200, L501.9985 ####[facility] [address] [place], [address] Mean corpuscular hemoglobin (MCH) determinationOrdered By: Martina Martínez on 01-29-2025 MCH (RBC) [Entitic mass] 27.3 pg Normal 27.0-32.0 [facility] Comment on above: Performed By: #### L 501.6710, L500.2500, L100.0100 ####[facility] [address] [place], [address] Mean corpuscular hemoglobin concentration (MCHC) determinationOrdered By: Martina Martínez on 01-29-2025 MCHC (RBC) [Mass/Vol] 32.9 g/dL Normal 32-36 [facility] Comment on above: Performed By: #### L 501.6710, L500.2500, L100.0100 ####[facility] [address] [place], [address] Mean platelet volume determi nationOrdered By: Martina Martínez on 01-29-2025 Platelet mean volume (Bld) [Entitic vol] 10.1 fL Normal 6.2-12.0 [facility] Comment on above: Performed By: #### L 501.6710, L500.2500, L100.0100 ####[facility] [address] [place], [address] Monocyte percentageOrdered B y: Martina Martínez on 01-29-2025 Monocytes/100 WBC (Bld) 5.4 % Normal 0-10 [facility] Comment on above: Performed By: #### L 501.6710, L500.2500, L100.0100 ####[facility] [address] [place], [address] Neutrophil percentageOrdered By: Martina Martínez on 01-29-2025 Neutrophils/100 WBC (Bld) 74.5 % High 47-70 [facility] Comment on above: Performed By: #### L 501.6710, L500.2500, L100.0100 ####[facility] [address] [place], [address] Nucleated red blood cell per centageOrdered By: Martina Martínez on 01-29-2025 Nucleated RBC/100 WBC (Bld) [Ratio] 0 % 0-5 [facility] Platelet countOrdered By: Rickey Martínez on 01-29-2025 Platelets (Bld) [#/Vol] 240 10*3/uL Normal 150-450 [facility] Comment on above: Performed By: #### L 501.6710, L500.2500, L100.0100 ####[facility] [address] [place], [address] Potassium measurement (mass/ volume)Ordered By: Martina Martínez on 01-29-2025 Potassium (Unsp spec) [Mass/Vol] 4.1 mmol/L 3.3-5.1 [facility] Serum creatinine measurement (mass/volume)Ordered By: Martina Martínez on 01-29-2025 Creatinine [Mass/Vol] 0.65 mg/dL Low 0.70-1.20 [facility] Comment on above: Performed By: #### L 501.6710, L500.2500, L100.0100 ####[facility] [address] [place], [address] Serum glucose measurement (m ass/volume)Ordered By: Martina Martínez on 01-29-2025 Glucose [Mass/Vol] 344 mg/dL High 70-99 [facility] Comment on above: Performed By: #### L 501.6710, L500.2500, L100.0100 ####[facility] [address] [place], [address] Serum or plasma C reactive p rotein measurement (mass/volume)Ordered By: Martina Martínez on 01-29-2025 CRP [Mass/Vol] mg/L 0.0-3.0 [facility] Serum or plasma calcium xiomara urement (mass/volume)Ordered By: Martina Martínez on 01-29-2025 Calcium [Mass/Vol] 8.9 mg/dL Normal 7.6-11.0 [facility] Comment on above: Performed By: #### L 501.6710, L500.2500, L100.0100 ####[facility] [address] [place], [address] Serum or plasma ethanol xiomara urement (mass/volume)Ordered By: Latricia Burdick on 01-29-2025 Ethanol [Mass/Vol] mg/dL <10.1 [facility] Serum or plasma urea nitroge n measurement (mass/volume)Ordered By: Martina Martínez on 01-29-2025 Urea nitrogen [Mass/Vol] 6 mg/dL Normal 4-19 [facility] Comment on above: Performed By: #### L 501.6710, L500.2500, L100.0100 ####[facility] [address] [place], [address] Sodium levelOrdered By: Libby Martínez on 01-29-2025 Sodium [Moles/Vol] 134 mmol/L Normal 133-145 [facility] Comment on above: Performed By: #### L 501.6710, L500.2500, L100.0100 ####[facility] [address] [place], [address] TSH DL <= 0.005 mIU/L QnOrde red By: Latricia Burdick on 01-29-2025 TSH Qn 1.870 uIU/mL 0.300-4.20 0 [facility] Thyroid Stim Hormone (TSH)on 01-29-2025 TSH 1.870 uIU/mL Normal 0.300-4.20 0 [facility] Comment on above: Performed By: #### L 501.9520, L501.5200, L501.9985 ####[facility] [address] [place], [place], [address] Vitamin B12 ser/plasOrdered By: Latricia Burdick on 01-29-2025 Cobalamin (Vitamin B12) [Mass/Vol] 344 pg/mL 180-914 [facility] White blood cell (WBC) count Ordered By: Martina Martínez on 01-29-2025 WBC (Bld) [#/Vol] 7.8 10*3/uL Normal 4.4-11.0 [facility] Comment on above: Performed By: #### L 501.6710, L500.2500, L100.0100 ####[facility] [address] [place], [address] Anion gap in Serum or Plasma Ordered By: Darlyn Galeano on 12-12-2024 Anion gap [Moles/Vol] 11 mmol/L 5-15 [facility] Ankle min 3 Viewson 12-13-19 25 Ankle min 3 Views Normal [facility] BUN/creatinine ratioOrdered By: Darlyn Galeano on 12-12-2024 Urea nitrogen/Creatinine [Mass ratio] 8.9 mg/mg Low - [facility] Basic Metabolic Profile (BMP )on 12-12-2024 BUN/CRE 8.9 RATIO Low 03-23 [facility] Comment on above: Performed By: #### L 500.2500 ####[facility] [address] [place], [address] GAP 11 Normal - [facility] Comment on above: Performed By: #### L 500.2500 ####[facility] [address] [place], [address] Potassium [Moles/Vol] 3.9 mmol/L Normal 3.3-5.1 [facility] Comment on above: Performed By: #### L 500.2500 ####[facility] [address] [place], [address] Bedside Glucoseon 12-12-2024 FINGERSTICK GLU 346 mg/dL High 74-106 [facility] Comment on above: Result Comment: TALIA CHAMBERS OF PATIENT CARE PER NURSING PROTOCOL Performed By: #### L 501.080 ####[facility] [address] [place], [address] Carbon dioxide, total [Moles /volume] in Central venous bloodOrdered By: Darlyn Galeano on 12-12-2024 CO2 [Moles/Vol] 23.3 mmol/L Normal 21.0-32.0 [facility] Comment on above: Performed By: #### L 500.2500 ####[facility] [address] [place], [place], [address] Chloride assayOrdered By: Dipika Galeano on 12-12-2024 Chloride [Moles/Vol] 98 mmol/L Normal 98-108 [facility] Comment on above: Performed By: #### L 500.2500 ####[facility] [address] [place], [place], [address] Emergency Department Summary on 12-12-2024 Emergency Department Summary Normal [facility] Foot min 3 Viewson Foot min 3 Views Normal [facility] Glomerular filtration rate ( GFR) estimation/1.73 sq m using serum, plasma, or whole bOrdered By: Darlyn Galeano on 12-12-2024 GFR/1.73 sq M.predicted among non-blacks MDRD (S/P/Bld) [Vol rate/Area] 105 mL/min/{1.73_m2} Normal >60 [facility] Comment on above: mL/min/1.73m2 CKD-EP I Creatinine Equation (2020) Result Comment: mL/m in/1.73m2 CKD-EPI Creatinine Equation (2020) Performed By: #### L 500.2500 ####[facility] [address] [place], [place], [address] [facility] By: Derek Paniagua on 12-12-2024 Glucose [Mass/Vol] 346 mg/dL High 74-106 [facility] Comment on above: MANAGEMENT OF PATIEN T CARE PER NURSING PROTOCOL Potassium measurement (mass/ volume)Ordered By: Darlyn Galeano on 12-12-2024 Potassium (Unsp spec) [Mass/Vol] 3.9 mmol/L 3.3-5.1 [facility] Serum creatinine measurement (mass/volume)Ordered By: Darlyn Galeano on 12-12-2024 Creatinine [Mass/Vol] 0.66 mg/dL Low 0.70-1.20 [facility] Comment on above: Performed By: #### L 500.2500 ####[facility] [address] [place], [address] Serum glucose measurement (m ass/volume)Ordered By: Darlynneville Galeano on 12-12-2024 Glucose [Mass/Vol] 327 mg/dL High 70-99 [facility] Comment on above: Performed By: #### L 500.2500 ####[facility] [address], [address] Serum or plasma calcium xiomara urement (mass/volume)Ordered By: Darlyn Galeano on 12-12-2024 Calcium [Mass/Vol] 9.2 mg/dL Normal 7.6-11.0 [facility] Comment on above: Performed By: #### L 500.2500 ####[facility] [address] [place], [address] Serum or plasma urea nitroge n measurement (mass/volume)Ordered By: Darlyn Galeano on 12-12-2024 Urea nitrogen [Mass/Vol] 6 mg/dL Normal 4-19 [facility] Comment on above: Performed By: #### L 500.2500 ####[facility] [address] [place], [address] Sodium levelOrdered By: Darlynneville Galeano on 12-12-2024 Sodium [Moles/Vol] 132 mmol/L Low 133-145 [facility] Comment on above: Performed By: #### L 500.2500 ####[facility] [address] [place], [address] 12 Lead EKGon 09-29-2024 12 Lead EKG Normal [facility] ALP [Catalytic activity/Vol] Ordered By: Nina Richardson on 09-29-2024 Serum or plasma alkaline phosphatase measurement 179 U/L High 35-104 [facility] ALT [Catalytic activity/Vol] Ordered By: Nina Richardson on 09-29-2024 Serum or plasma alanine aminotransferase (ALT) measurement 12 U/L <35 [facility] Absolute lymphocyte countOrd ered By: Nina Richardson on 09-29-2024 Lymphocytes Auto (Unsp spec) [#/Vol] 0.91 10*3/uL 0.83-4.51 [facility] Absolute neutrophil countOrd ered By: Nina Ricahrdson on 09-29-2024 Absolute neutrophil count 14.1 X10^3/uL High 2.0-7.7 [facility] Albumin [Mass/Vol]Ordered By : Nina Richardson on 09-29-2024 Serum or plasma albumin measurement (mass/volume) 3.7 g/dL 3.5-5.0 [facility] Albumin/Globulin [Mass ratio ]Ordered By: Nina Richardson on 09-29-2024 Serum or plasma albumin/globulin mass ratio 1.0 RATIO 0.9-2.4 [facility] Anion gap [Moles/Vol]Ordered By: Nina Richardson on 09-29-2024 Anion gap in Serum or Plasma 15 5-15 [facility] Anion gap in Serum or Plasma Ordered By: Nina Richardson on 09-29-2024 Anion gap [Moles/Vol] 15 mmol/L - [facility] Automated lymphocyte count a s percentage of total leukocytesOrdered By: Nina Richardson on 09-29-2024 Lymphocytes/100 WBC Auto (Unsp spec) 5.8 % Low 19-41 [facility] BUN/creatinine ratioOrdered By: Nina Richardson on 09-29-2024 Urea nitrogen/Creatinine [Mass ratio] 20.5 mg/mg High 10-20 [facility] BUN/creatinine ratio 20.5 RATIO High 10-20 [facility] Basophil percentageOrdered B y: Nina Richardson on 09-29-2024 Basophils/100 WBC (Bld) 0.4 % 0-1 [facility] Basophil percentage 0.4 % 0-1 [facility] Bedside Glucoseon 09-29-2024 FINGERSTICK GLU 382 mg/dL High 74-106 [facility] Comment on above: Result Comment: TALIA CHAMBERS OF PATIENT CARE PER NURSING PROTOCOL Performed By: #### L 501.080 ####[facility] [address] [place], [address] FINGERSTICK GLU 412 mg/dL High 74-106 [facility] Comment on above: Result Comment: TALIA GEMENT OF PATIENT CARE PER NURSING PROTOCOL Performed By: #### L 501.080 ####[facility] [address] [place], [place], [id number] FINGERSTICK GLU 412 mg/dL High 74-106 [facility] Comment on above: Result Comment: TALIA GEMENT OF PATIENT CARE PER NURSING PROTOCOL Performed By: #### L 501.080 ####[facility] [address] [place], [address] Beta hydroxybutyrate [Mass/V ol]Ordered By: Nina Richardson on 09-29-2024 Beta-hydroxybutyrate 1.3 mmol/L 0.0-0.3 [facility] Beta-Hydroxbytyrateon 2024 BETA-HYDROXYBUT 1.3 mmol/L Normal 0.0-0.3 [facility] Comment on above: Performed By: #### L 501.6901 ####[facility] [address] [place], [place], [id number] Beta-hydroxybutyrateOrdered By: Nina Richardson on 09-29-2024 Beta hydroxybutyrate [Mass/Vol] 1.3 mmol/L 0.0-0.3 [facility] Bilirubin Test strip Ql (U)O rdered By: Nina Richardson on 09-29-2024 Bilirubin Ql (U) Negative Negative [facility] Bilirubin, totalOrdered By: Nina Richardson on 09-29-2024 Bilirubin [Mass/Vol] 0.90 mg/dL 0.00-1.30 [facility] Bilirubin, total 0.90 mg/dL 0.00-1.30 [facility] CBC W/Diff, Automatedon 09-03 Absolute Lymph 0.91 X10 3/uL Normal 0.83-4.51 [facility] Comment on above: Performed By: #### L 500.4050, L501.2450, L100.0100 ####[facility] [address] [place], [place], [phone]) Absolute Neut 14.1 X10 3/uL High 2.0-7.7 [facility] Comment on above: Performed By: #### L 500.4050, L501.2450, L100.0100 ####[facility] [address] [place], [address] Basophils/100 WBC (Bld) 0.4 % Normal 0-1 [facility] Comment on above: Performed By: #### L 500.4050, L501.2450, L100.0100 ####[facility] [address] [place], [address] Eosinophils/100 WBC (Bld) 0.1 % Normal 0-5 [facility] Comment on above: Performed By: #### L 500.4050, L501.2450, L100.0100 ####[facility] [address] [place], [address] Erythrocyte distribution width (RBC) [Ratio] 13.2 % Normal 11.6-14.6 [facility] Comment on above: Performed By: #### L 500.4050, L501.2450, L100.0100 ####[facility] [address] [place], [address] Hematocrit (Bld) [Volume fraction] 38.0 % Normal 37-47 [facility] Comment on above: Performed By: #### L 500.4050, L501.2450, L100.0100 ####[facility] [address] [place], [address] Hemoglobin (Bld) [Mass/Vol] 12.9 g/dL Normal 12.0-15.0 [facility] Comment on above: Performed By: #### L 500.4050, L501.2450, L100.0100 ####[facility] [address] [place], [address] IG% 0.600 Normal 0.0-0.9 [facility] Comment on above: Result Comment: IG% - Immature Granulocytes (promyelocytes, myelocytes andmetamyelocytes) > 1% indicates that a LEFT SHIFT is Present. Performed By: #### L 500.4050, L501.2450, L100.0100 ####[facility] [address] [place], [address] Lymphocytes/100 WBC (Bld) 5.8 % Low 19-41 [facility] Comment on above: Performed By: #### L 500.4050, L501.2450, L100.0100 ####[facility] [address] [place], [address] MCH (RBC) [Entitic mass] 27.9 pg Normal 27.0-32.0 [facility] Comment on above: Performed By: #### L 500.4050, L501.2450, L100.0100 ####[facility] [address] [place], [address] MCHC (RBC) [Mass/Vol] 33.9 g/dL Normal 32-36 [facility] Comment on above: Performed By: #### L 500.4050, L501.2450, L100.0100 ####[facility] [address] [place], [address] MCV (RBC) [Entitic vol] 82.3 fL Normal 81-99 [facility] Comment on above: Performed By: #### L 500.4050, L501.2450, L100.0100 ####[facility] [address] [place], [address] Monocytes/100 WBC (Bld) 3.3 % Normal 0-10 [facility] Comment on above: Performed By: #### L 500.4050, L501.2450, L100.0100 ####[facility] [address] [place], [address] Neutrophils/100 WBC (Bld) 89.8 % High 47-70 [facility] Comment on above: Performed By: #### L 500.4050, L501.2450, L100.0100 ####[facility] [address] [place], [address] Nucleated RBC (Bld) [#/Vol] 0 10*3/uL Normal 0-5 [facility] Comment on above: Performed By: #### L 500.4050, L501.2450, L100.0100 ####[facility] [address] [place], [address] Platelet mean volume (Bld) [Entitic vol] 9.6 fL Normal 6.2-12.0 [facility] Comment on above: Performed By: #### L 500.4050, L501.2450, L100.0100 ####[facility] [address] [place], [address] Platelets (Bld) [#/Vol] 313 10*3/uL Normal 150-450 [facility] Comment on above: Performed By: #### L 500.4050, L501.2450, L100.0100 ####[facility] [address] [place], [address] RBC (Bld) [#/Vol] 4.62 10*6/uL Normal 4.2-5.4 [facility] Comment on above: Performed By: #### L 500.4050, L501.2450, L100.0100 ####[facility] [address] [place], [address] RDW SD 39.4 fl Normal 35.1-43.9 [facility] Comment on above: Performed By: #### L 500.4050, L501.2450, L100.0100 ####[facility] [address] [place], [address] WBC (Bld) [#/Vol] 15.7 10*3/uL High 4.4-11.0 [facility] Comment on above: Performed By: #### L 500.4050, L501.2450, L100.0100 ####[facility] [address], [address] Calcium [Mass/Vol]Ordered By : Nina Richardson on 09-29-2024 Serum or plasma calcium measurement (mass/volume) 9.5 mg/dL 7.6-11.0 [facility] Carbon dioxide, total [Moles /volume] in Central venous bloodOrdered By: Nina Richardson on 09-29-2024 CO2 [Moles/Vol] 23.7 mmol/L 21.0-32.0 [facility] Carbon dioxide, total [Moles/volume] in Central venous blood 23.7 mmol/L 21.0-32.0 [facility] Chloride assayOrdered By: Es Richardson on 09-29-2024 Chloride [Moles/Vol] 97 mmol/L Low 98-108 [facility] Chloride assay 97 mmol/L Low 98-108 [facility] Clarity (U)Ordered By: Tara Richardson on 09-29-2024 Urine clarity Clear Clear [facility] Color (U)Ordered By: Billy Livingston on 09-29-2024 Urine color determination Yellow Yellow [facility] Comprehensive Metabolic Prof ilon 09-29-2024 Albumin [Mass/Vol] 3.7 g/dL Normal 3.5-5.0 [facility] Comment on above: Performed By: #### L 500.4050, L501.2450, L100.0100 ####[facility] [address] [place], [address] Albumin/Globulin [Mass ratio] 1.0 {ratio} Normal 0.9-2.4 [facility] Comment on above: Performed By: #### L 500.4050, L501.2450, L100.0100 ####[facility] [address] [place], [address] ALK PHOS 179 U/L High 35-104 [facility] Comment on above: Performed By: #### L 500.4050, L501.2450, L100.0100 ####[facility] [address] [place], [address] ALT [Catalytic activity/Vol] 12 U/L Normal <=34 [facility] Comment on above: Performed By: #### L 500.4050, L501.2450, L100.0100 ####[facility] [address] [place], [address] AST [Catalytic activity/Vol] 19 U/L Normal <=31 [facility] Comment on above: Performed By: #### L 500.4050, L501.2450, L100.0100 ####[facility] [address] [place], [address] Bilirubin [Mass/Vol] 0.90 mg/dL Normal 0.00-1.30 [facility] Comment on above: Performed By: #### L 500.4050, L501.2450, L100.0100 ####[facility] [address] [place], [address] BUN/CRE 20.5 RATIO High 10-20 [facility] Comment on above: Performed By: #### L 500.4050, L501.2450, L100.0100 ####[facility] [address] [place], [address] Calcium [Mass/Vol] 9.5 mg/dL Normal 7.6-11.0 [facility] Comment on above: Performed By: #### L 500.4050, L501.2450, L100.0100 ####[facility] [address] [place], [address] Chloride [Moles/Vol] 97 mmol/L Low 98-108 [facility] Comment on above: Performed By: #### L 500.4050, L501.2450, L100.0100 ####[facility] [address] [place], [address] CO2 [Moles/Vol] 23.7 mmol/L Normal 21.0-32.0 [facility] Comment on above: Performed By: #### L 500.4050, L501.2450, L100.0100 ####[facility] [address] [place], [address] Creatinine [Mass/Vol] 0.68 mg/dL Low 0.70-1.20 [facility] Comment on above: Performed By: #### L 500.4050, L501.2450, L100.0100 ####[facility] [address] [place], [address] ECRCL 105.00 ml/min Normal 50-250 [facility] Comment on above: Performed By: #### L 500.4050, L501.2450, L100.0100 ####[facility] [address] [place], [address] GAP 15 Normal 5-15 [facility] Comment on above: Performed By: #### L 500.4050, L501.2450, L100.0100 ####[facility] [address] [place], [address] GFR/1.73 sq M.predicted among non-blacks MDRD (S/P/Bld) [Vol rate/Area] 104 mL/min/{1.73_m2} Normal >60 [facility] Comment on above: Result Comment: mL/m in/1.73m2 CKD-EPI Creatinine Equation (2020) Performed By: #### L 500.4050, L501.2450, L100.0100 ####[facility] [address] [place], [address] Globulin (S) [Mass/Vol] 3.8 g/dL Normal 2.2-4.2 [facility] Comment on above: Performed By: #### L 500.4050, L501.2450, L100.0100 ####[facility] [address] [place], [address] Glucose [Mass/Vol] 442 mg/dL High 70-99 [facility] Comment on above: Performed By: #### L 500.4050, L501.2450, L100.0100 ####[facility] [address] [place], [address] Potassium [Moles/Vol] 3.5 mmol/L Normal 3.3-5.1 [facility] Comment on above: Performed By: #### L 500.4050, L501.2450, L100.0100 ####[facility] [address] [place], [address] Sodium [Moles/Vol] 135 mmol/L Normal 133-145 [facility] Comment on above: Performed By: #### L 500.4050, L501.2450, L100.0100 ####[facility] [address] [place], [address] T PROT 7.5 g/dL Normal 5.9-8.4 [facility] Comment on above: Performed By: #### L 500.4050, L501.2450, L100.0100 ####[facility] [address] [place], [address] Urea nitrogen [Mass/Vol] 14 mg/dL Normal 4-19 [facility] Comment on above: Performed By: #### L 500.4050, L501.2450, L100.0100 ####[facility] [address] [place], [address] Creatinine [Mass/Vol]Ordered By: Nina Richardson on 09-29-2024 Serum creatinine measurement (mass/volume) 0.68 mg/dL Low 0.70-1.20 [facility] Emergency Department Summary on 09-29-2024 Emergency Department Summary Normal [facility] Eosinophil percentageOrdered By: Nina Richardson on 09-29-2024 Eosinophils/100 WBC (Bld) 0.1 % 0-5 [facility] Eosinophil percentage 0.1 % 0-5 [facility] Erythrocyte distribution wid th (RBC) [Ratio]Ordered By: Nina Richardson on 09-29-2024 Erythrocyte distribution width ratio 13.2 % 11.6-14.6 [facility] Erythrocyte distribution width standard deviation 39.4 fl 35.1-43.9 [facility] Erythrocyte distribution wid th ratioOrdered By: Nina Richardson on 09-29-2024 Erythrocyte distribution width (RBC) [Ratio] 13.2 % 11.6-14.6 [facility] Erythrocyte distribution wid th standard deviationOrdered By: Nina Richardson on 09-29-2024 Erythrocyte distribution width (RBC) [Ratio] 39.4 fl 35.1-43.9 [facility] Estimation of creatinine sylvain aranceOrdered By: Nina Richardson on 09-29-2024 Estimation of creatinine clearance 105.00 ml/min 50-250 [facility] GFR/1.73 sq M.predicted estephanie g non-blacks MDRD (S/P/Bld) [Vol rate/Area]Ordered By: Nina Richardson on 09-29-2024 Glomerular filtration rate (GFR) estimation/1.73 sq m using serum, plasma, or whole b 104 >60 [facility] Glomerular filtration rate ( GFR) estimation/1.73 sq m using serum, plasma, or whole bOrdered By: Nina Richardson on 09-29-2024 GFR/1.73 sq M.predicted among non-blacks MDRD (S/P/Bld) [Vol rate/Area] 104 mL/min/{1.73_m2} >60 [facility] Glucose Ql (U)Ordered By: Es Richardson on 09-29-2024 Urine glucose detection 1000 mg/dl High Normal [facility] Glucose [Mass/Vol]Ordered By : Nina Richardson on 09-29-2024 Serum glucose measurement (mass/volume) 442 mg/dL High 70-99 [facility] Glucose measurement at bedsi deOrdered By: Zack Card on 09-29-2024 Glucose [Mass/Vol] 382 mg/dL High 74-106 [facility] Glucose measurement at bedside 382 mg/dL High 74-106 [facility] Hematocrit Auto (Bld) [Volum e fraction]Ordered By: Nina Richardson on 09-29-2024 Hematocrit (Bld) [Volume fraction] 38.0 % 37-47 [facility] Automated blood hematocrit (percentage) 38.0 % 37-47 [facility] Hemoglobin measurementOrdere d By: Nina Richardson on 09-29-2024 Hemoglobin (Bld) [Mass/Vol] 12.9 g/dL 12.0-15.0 [facility] Hemoglobin measurement 12.9 g/dL 12.0-15.0 [facility] Immature granulocytes/100 WB C Auto (Bld)Ordered By: Nina Richardson on 09-29-2024 Immature granulocytes/100 WBC (Bld) 0.600 % 0.0-0.9 [facility] Automated immature granulocyte percentage 0.600 % 0.0-0.9 [facility] Ketones Test strip Ql (U)Ord ered By: Nina Richardson on 09-29-2024 Ketones Ql (U) 15 mg/dl High Negative [facility] Urine ketones detection by test strip 15 mg/dl High Negative [facility] Lipaseon 09-29-2024 Lipase [Catalytic activity/Vol] 30 U/L Normal 13-75 [facility] Comment on above: Result Comment: Gege edgar note:LIPASE revised reference range effective 22.New Lipase methodology. Expected to produce lower valuesthan the previous assay method.NEW Reference Range: 13 - 75 U/L Performed By: #### L 500.4050, L501.2450, L100.0100 ####[facility] [address] [place], [address] Lipase measurementOrdered By : Nina Richardson on 09-29-2024 Lipase measurement 30 U/L 13-75 [facility] Lymphocytes Auto (Unsp spec) [#/Vol]Ordered By: Nina Richardson on 09-29-2024 Absolute lymphocyte count 0.91 X10^3/uL 0.83-4.51 [facility] Lymphocytes/100 WBC Auto (Un sp spec)Ordered By: Nina Richardson on 09-29-2024 Automated lymphocyte count as percentage of total leukocytes 5.8 % Low 19-41 [facility] MCV (RBC) [Entitic vol]Order ed By: Nina Richardson on 09-29-2024 MCV (mean corpuscular volume) determination 82.3 fL 81-99 [facility] MCV (mean corpuscular volume ) determinationOrdered By: Nina Richardson on 09-29-2024 MCV (RBC) [Entitic vol] 82.3 fL 81-99 [facility] Mean corpuscular hemoglobin (MCH) determinationOrdered By: Nina Richardson on 09-29-2024 MCH (RBC) [Entitic mass] 27.9 pg 27.0-32.0 [facility] Mean corpuscular hemoglobin (MCH) determination 27.9 pg 27.0-32.0 [facility] Mean corpuscular hemoglobin concentration (MCHC) determinationOrdered By: Nina Richardson on 09-29-2024 Mean corpuscular hemoglobin concentration (MCHC) determination 33.9 g/dL 32-36 [facility] Mean platelet volume determi nationOrdered By: Nina Richardson on 09-29-2024 Mean platelet volume determination 9.6 fl 6.2-12.0 [facility] Monocyte percentageOrdered B y: Nina Richardson on 09-29-2024 Monocytes/100 WBC (Bld) 3.3 % 0-10 [facility] Monocyte percentage 3.3 % 0-10 [facility] Mucus LM Ql (Urine sed)Order ed By: Nina Richardson on 09-29-2024 Mucus Ql (Urine sed) 0 SEEN /hpf [facility] Neutrophil percentageOrdered By: Nina Richardson on 09-29-2024 Neutrophils/100 WBC (Bld) 89.8 % High 47-70 [facility] Neutrophil percentage 89.8 % High 47-70 [facility] Nitrite Test strip Ql (U)Ord ered By: Nina Richardson on 09-29-2024 Nitrite Ql (U) Negative Negative [facility] No Panel InformationOrdered By: Nina Richardson on 09-29-2024 19 U/L <32 [facility] Nucleated red blood cell per centageOrdered By: Nina Richardson on 09-29-2024 Nucleated red blood cell percentage 0 % 0-5 [facility] Platelet countOrdered By: Es Richardson on 09-29-2024 Platelets (Bld) [#/Vol] 313 10*3/uL 150-450 [facility] Platelet count 313 K/mm3 150-450 [facility] Potassium (Unsp spec) [Mass/ Vol]Ordered By: Nina Richardson on 09-29-2024 Potassium measurement (mass/volume) 3.5 mmol/L 3.3-5.1 [facility] Potassium measurement (mass/ volume)Ordered By: Nina Richardson on 09-29-2024 Potassium (Unsp spec) [Mass/Vol] 3.5 mmol/L 3.3-5.1 [facility] Protein Test strip Ql (U)Ord ered By: Nina Richardson on 09-29-2024 Protein Ql (U) 100 mg/dl High Negative [facility] Urine protein assay by test strip, semi-quantitative 100 mg/dl High Negative [facility] RBC Auto (Bld) [#/Vol]Ordere d By: Nina Richardson on 09-29-2024 RBC (Bld) [#/Vol] 4.62 10*6/uL 4.2-5.4 [facility] Automated blood erythrocyte count 4.62 M/mm3 4.2-5.4 [facility] Serum creatinine measurement (mass/volume)Ordered By: Nina Richardson on 09-29-2024 Creatinine [Mass/Vol] 0.68 mg/dL Low 0.70-1.20 [facility] Serum globulin measurementOr dered By: Nina Richardson on 09-29-2024 Globulin (S) [Mass/Vol] 3.8 g/dL 2.2-4.2 [facility] Serum globulin measurement 3.8 g/dL 2.2-4.2 [facility] Serum glucose measurement (m ass/volume)Ordered By: Nina Richardson on 09-29-2024 Glucose [Mass/Vol] 442 mg/dL High 70-99 [facility] Serum or plasma alanine hamilton otransferase (ALT) measurementOrdered By: Nina Richardson on 09-29-2024 ALT [Catalytic activity/Vol] 12 U/L <35 [facility] Serum or plasma albumin xiomara urement (mass/volume)Ordered By: Nina Richardson on 09-29-2024 Albumin [Mass/Vol] 3.7 g/dL 3.5-5.0 [facility] Serum or plasma albumin/glob ulin mass ratioOrdered By: Nina Richardson on 09-29-2024 Albumin/Globulin [Mass ratio] 1.0 {ratio} 0.9-2.4 [facility] Serum or plasma alkaline sabiha sphatase measurementOrdered By: Nina Richardson on 09-29-2024 ALP [Catalytic activity/Vol] 179 U/L High 35-104 [facility] Serum or plasma calcium xiomara urement (mass/volume)Ordered By: Nina Richardson on 09-29-2024 Calcium [Mass/Vol] 9.5 mg/dL 7.6-11.0 [facility] Serum or plasma urea nitroge n measurement (mass/volume)Ordered By: Nina Richardson on 09-29-2024 Urea nitrogen [Mass/Vol] 14 mg/dL 4-19 [facility] Sodium levelOrdered By: Carissa Richardson on 09-29-2024 Sodium [Moles/Vol] 135 mmol/L 133-145 [facility] Sodium level 135 mmol/L 133-145 [facility] Specific gravity (U) [Rel de nsity]Ordered By: Nina Richardson on 09-29-2024 Urine specific gravity measurement 1.010 1.002-1.03 0 [facility] Squamous epithelial cells de tection in urine sediment by light microscopyOrdered By: Nina Richardson on 09-29-2024 Epithelial cells.squamous LM Ql (Urine sed) 0-5 SEEN /hpf 5-10 [facility] Total proteinOrdered By: Yamil Richardson on 09-29-2024 Protein [Mass/Vol] 7.5 g/dL 5.9-8.4 [facility] Total protein 7.5 g/dL 5.9-8.4 [facility] Urea nitrogen [Mass/Vol]Orde red By: Nina Richardson on 09-29-2024 Serum or plasma urea nitrogen measurement (mass/volume) 14 mg/dL 4-19 [facility] Urinalysis, Completeon 09-29 EPI,SQUAMOUS 0-5 SEEN Normal 5-10 [facility] Comment on above: Order Comment: CLEAN CATCH Performed By: #### L 400.0001 ####[facility] [address] [facility] [address] RBC 0-5 SEEN Normal 0-5 [facility] Comment on above: Order Comment: CLEAN CATCH Performed By: #### L 400.0001 ####[facility] [address] [place], [address] WBC 0-5 SEEN Normal 0-5 [facility] Comment on above: Order Comment: CLEAN CATCH Performed By: #### L 400.0001 ####[facility] [address] [place], [address] BACTERIA 0 SEEN Normal None Seen [facility] Comment on above: Order Comment: CLEAN CATCH Performed By: #### L 400.0001 ####[facility] [address] [place], [address] Mucus Ql (Urine sed) 0 SEEN Normal [facility] Comment on above: Order Comment: CLEAN CATCH Performed By: #### L 400.0001 ####[facility] [address] [place], [address] Urine blood detectionOrdered By: Nina Richardson on 09-29-2024 Urine blood detection 25 /ul High Negative [facility] Urine clarityOrdered By: Yamil Richardson on 09-29-2024 Clarity (U) Clear Clear [facility] Urine color determinationOrd ered By: Nina Richardson on 09-29-2024 Color (U) Yellow Yellow [facility] Urine glucose detectionOrder ed By: Nina Richardson on 09-29-2024 Glucose Ql (U) 1000 mg/dl High Normal [facility] Urine leukocyte esterase det ection by dipstickOrdered By: Nina Richardson on 09-29-2024 Leukocyte esterase Test strip Ql (U) Negative Negative [facility] Urine pHOrdered By: Martin Richardson on 09-29-2024 pH (U) 7.0 [pH] 5.0 - 8.0 [facility] Urine sediment bacteria coun t by microscopy (number/high power field)Ordered By: Nina Richardson on 09-29-2024 Bacteria LM.HPF (Urine sed) [#/Area] 0 /[HPF] None Seen [facility] Urine sediment bacteria count by microscopy (number/high power field) 0 SEEN /hpf [facility] Urine specific gravity measu rementOrdered By: Nina Richardson on 09-29-2024 Specific gravity (U) [Rel density] 1.010 1.002-1.03 0 [facility] Urine total bilirubin detect ion by test stripOrdered By: Nina Richardson on 09-29-2024 Urine total bilirubin detection by test strip Negative Negative [facility] Urine urobilinogen measureme ntOrdered By: Nina Richardson on 09-29-2024 Urobilinogen Ql (U) Normal mg/dl Normal [facility] Urobilinogen Ql (U)Ordered B y: Nina Richardson on 09-29-2024 Urine urobilinogen measurement Normal mg/dl Normal [facility] White blood cell (WBC) count Ordered By: Nina Richardson on 09-29-2024 WBC (Bld) [#/Vol] 15.7 10*3/uL High 4.4-11.0 [facility] White blood cell (WBC) count 15.7 K/mm3 High 4.4-11.0 [facility] White blood cell countOrdere d By: Nina Richardson on 09-29-2024 White blood cell count 0-5 SEEN /hpf 0-5 [facility] White blood cell count 0-5 SEEN /hpf 5-10 [facility] pH (U)Ordered By: Nina Richardson on 09-29-2024 Urine pH 7.0 5.0 - 8.0 [facility] ALP [Catalytic activity/Vol] Ordered By: Riccardo Hillman on 09-21-2024 Serum or plasma alkaline phosphatase measurement 128 U/L High 35-104 [facility] ALT [Catalytic activity/Vol] Ordered By: Riccardo Hillman on 09-21-2024 Serum or plasma alanine aminotransferase (ALT) measurement 13 U/L <35 [facility] Absolute lymphocyte countOrd ered By: Nina Richardson on 09-21-2024 Lymphocytes Auto (Unsp spec) [#/Vol] 1.03 10*3/uL 0.83-4.51 [facility] Absolute neutrophil countOrd ered By: Nina Richardson on 09-21-2024 Absolute neutrophil count 8.9 X10^3/uL High 2.0-7.7 [facility] Albumin [Mass/Vol]Ordered By : Riccardo Hillman on 09-21-2024 Serum or plasma albumin measurement (mass/volume) 3.6 g/dL 3.5-5.0 [facility] Albumin/Globulin [Mass ratio ]Ordered By: Riccardo Hillman on 09-21-2024 Serum or plasma albumin/globulin mass ratio 1.1 RATIO 0.9-2.4 [facility] Anion gap [Moles/Vol]Ordered By: Riccardo Hillman on 09-21-2024 Anion gap in Serum or Plasma 11 5-15 [facility] Anion gap in Serum or Plasma Ordered By: Riccardo Hillman on 09-21-2024 Anion gap [Moles/Vol] 11 mmol/L 5-15 [facility] Automated lymphocyte count a s percentage of total leukocytesOrdered By: Nina Richardson on 09-21-2024 Lymphocytes/100 WBC Auto (Unsp spec) 9.8 % Low 19-41 [facility] BUN/creatinine ratioOrdered By: Riccardo Hillman on 09-21-2024 Urea nitrogen/Creatinine [Mass ratio] 13.7 mg/mg 10-20 [facility] BUN/creatinine ratio 13.7 RATIO 10-20 [facility] Basophil percentageOrdered B y: Nina Richardson on 09-21-2024 Basophils/100 WBC (Bld) 0.4 % 0-1 [facility] Basophil percentage 0.4 % 0-1 [facility] Bilirubin Test strip Ql (U)O rdered By: Nina Richardson on 09-21-2024 Bilirubin Ql (U) Negative Negative [facility] Bilirubin, totalOrdered By: Riccardo Hillman on 09-21-2024 Bilirubin [Mass/Vol] 1.08 mg/dL 0.00-1.30 [facility] Bilirubin, total 1.08 mg/dL 0.00-1.30 [facility] CBC W/Diff, Automatedon - Absolute Lymph 1.03 X10 3/uL Normal 0.83-4.51 [facility] Comment on above: Performed By: #### L 100.0100, L500.4050 ####[facility] [address] [place], [address] Absolute Neut 8.9 X10 3/uL High 2.0-7.7 [facility] Comment on above: Performed By: #### L 100.0100, L500.4050 ####[facility] [address] [place], [address] Basophils/100 WBC (Bld) 0.4 % Normal 0-1 [facility] Comment on above: Performed By: #### L 100.0100, L500.4050 ####[facility] [address] [place], [address] Eosinophils/100 WBC (Bld) 0.6 % Normal 0-5 [facility] Comment on above: Performed By: #### L 100.0100, L500.4050 ####[facility] [address] [place], [address] Erythrocyte distribution width (RBC) [Ratio] 13.0 % Normal 11.6-14.6 [facility] Comment on above: Performed By: #### L 100.0100, L500.4050 ####[facility] [address] [place], [address] Hematocrit (Bld) [Volume fraction] 37.7 % Normal 37-47 [facility] Comment on above: Performed By: #### L 100.0100, L500.4050 ####[facility] [address] [place], [address] Hemoglobin (Bld) [Mass/Vol] 13.0 g/dL Normal 12.0-15.0 [facility] Comment on above: Performed By: #### L 100.0100, L500.4050 ####[facility] [address] [place], [address] IG% 0.300 Normal 0.0-0.9 [facility] Comment on above: Result Comment: IG% - Immature Granulocytes (promyelocytes, myelocytes andmetamyelocytes) > 1% indicates that a LEFT SHIFT is Present. Performed By: #### L 100.0100, L500.4050 ####[facility] [address] [place], [address] Lymphocytes/100 WBC (Bld) 9.8 % Low 19-41 [facility] Comment on above: Performed By: #### L 100.0100, L500.4050 ####[facility] [address] [place], [address] MCH (RBC) [Entitic mass] 29.0 pg Normal 27.0-32.0 [facility] Comment on above: Performed By: #### L 100.0100, L500.4050 ####[facility] [address] [place], [address] MCHC (RBC) [Mass/Vol] 34.5 g/dL Normal 32-36 [facility] Comment on above: Performed By: #### L 100.0100, L500.4050 ####[facility] [address] [place], [address] MCV (RBC) [Entitic vol] 84.0 fL Normal 81-99 [facility] Comment on above: Performed By: #### L 100.0100, L500.4050 ####[facility] [address] [place], [address] Monocytes/100 WBC (Bld) 4.3 % Normal 0-10 [facility] Comment on above: Performed By: #### L 100.0100, L500.4050 ####[facility] [address] [place], [address] Neutrophils/100 WBC (Bld) 84.6 % High 47-70 [facility] Comment on above: Performed By: #### L 100.0100, L500.4050 ####[facility] [address] [place], [address] Nucleated RBC (Bld) [#/Vol] 0 10*3/uL Normal 0-5 [facility] Comment on above: Performed By: #### L 100.0100, L500.4050 ####[facility] [address] [place], [address] Platelet mean volume (Bld) [Entitic vol] 9.3 fL Normal 6.2-12.0 [facility] Comment on above: Performed By: #### L 100.0100, L500.4050 ####[facility] [address] [place], [address] Platelets (Bld) [#/Vol] 275 10*3/uL Normal 150-450 [facility] Comment on above: Performed By: #### L 100.0100, L500.4050 ####[facility] [address] [place], [address] RBC (Bld) [#/Vol] 4.49 10*6/uL Normal 4.2-5.4 [facility] Comment on above: Performed By: #### L 100.0100, L500.4050 ####[facility] [address] [place], [address] RDW SD 39.7 fl Normal 35.1-43.9 [facility] Comment on above: Performed By: #### L 100.0100, L500.4050 ####[facility] [address] [place], [address] WBC (Bld) [#/Vol] 10.5 10*3/uL Normal 4.4-11.0 [facility] Comment on above: Performed By: #### L 100.0100, L500.4050 ####[facility] [address] [place], [address] Calcium [Mass/Vol]Ordered By : Riccardo Hillman on 09-21-2024 Serum or plasma calcium measurement (mass/volume) 9.3 mg/dL 7.6-11.0 [facility] Carbon dioxide, total [Moles /volume] in Central venous bloodOrdered By: Riccardo Hillman on 09-21-2024 CO2 [Moles/Vol] 25.8 mmol/L 21.0-32.0 [facility] Carbon dioxide, total [Moles/volume] in Central venous blood 25.8 mmol/L 21.0-32.0 [facility] Chloride assayOrdered By: Bertram Hillman on 09-21-2024 Chloride [Moles/Vol] 95 mmol/L Low 98-108 [facility] Chloride assay 95 mmol/L Low 98-108 [facility] Clarity (U)Ordered By: Tara Richardson on 09-21-2024 Urine clarity Clear Clear [facility] Color (U)Ordered By: Billy Livingston on 09-21-2024 Urine color determination Yellow Yellow [facility] Comprehensive Metabolic Prof ilon 09-21-2024 Albumin [Mass/Vol] 3.6 g/dL Normal 3.5-5.0 [facility] Comment on above: Order Comment: REDRA W. PREVIOUS SPECIMEN REJECTED DUE TOSPECIMEN BEING HEMOLYZED. 09/21/245 Jevon Vergarar. Performed By: #### L 500.4050, L501.2450 ####[facility] [address] [place], [address] Albumin/Globulin [Mass ratio] 1.1 {ratio} Normal 0.9-2.4 [facility] Comment on above: Order Comment: REDRA W. PREVIOUS SPECIMEN REJECTED DUE TOSPECIMEN BEING HEMOLYZED. 09/21/241314 Jevon Vergarar. Performed By: #### L 500.4050, L501.2450 ####[facility] [address] [place], [address] ALK PHOS 128 U/L High 35-104 [facility] Comment on above: Order Comment: REDRA W. PREVIOUS SPECIMEN REJECTED DUE TOSPECIMEN BEING HEMOLYZED. 09/21/241314 Jevon Vergarar. Performed By: #### L 500.4050, L501.2450 ####[facility] [address] [place], [address] ALT [Catalytic activity/Vol] 13 U/L Normal <=34 [facility] Comment on above: Order Comment: REDRA W. PREVIOUS SPECIMEN REJECTED DUE TOSPECIMEN BEING HEMOLYZED. 09/21/241314 Jevon Vergarar. Performed By: #### L 500.4050, L501.2450 ####[facility] [address] [place], [address] AST [Catalytic activity/Vol] 19 U/L Normal <=31 [facility] Comment on above: Order Comment: REDRA W. PREVIOUS SPECIMEN REJECTED DUE TOSPECIMEN BEING HEMOLYZED. 09/21/245 Jevon Vergarar. Performed By: #### L 500.4050, L501.2450 ####[facility] [address] [place], [address] Bilirubin [Mass/Vol] 1.08 mg/dL Normal 0.00-1.30 [facility] Comment on above: Order Comment: REDRA W. PREVIOUS SPECIMEN REJECTED DUE TOSPECIMEN BEING HEMOLYZED. 09/21/241314 Jevon Angeles. Performed By: #### L 500.4050, L501.2450 ####[facility] [address] [place], [address] BUN/CRE 13.7 RATIO Normal 10-20 [facility] Comment on above: Order Comment: REDRA W. PREVIOUS SPECIMEN REJECTED DUE TOSPECIMEN BEING HEMOLYZED. 09/21/241314 Jevon Angeles. Performed By: #### L 500.4050, L501.2450 ####[facility] [address] [place], [address] Calcium [Mass/Vol] 9.3 mg/dL Normal 7.6-11.0 [facility] Comment on above: Order Comment: REDRA W. PREVIOUS SPECIMEN REJECTED DUE TOSPECIMEN BEING HEMOLYZED. 09/21/241314 Jevon Angeles. Performed By: #### L 500.4050, L501.2450 ####[facility] [address] [place], [address] Chloride [Moles/Vol] 95 mmol/L Low 98-108 [facility] Comment on above: Order Comment: REDRA W. PREVIOUS SPECIMEN REJECTED DUE TOSPECIMEN BEING HEMOLYZED. 09/21/241314 Jevon Squires Performed By: #### L 500.4050, L501.2450 ####[facility] [address] [place], [address] CO2 [Moles/Vol] 25.8 mmol/L Normal 21.0-32.0 [facility] Comment on above: Order Comment: REDRA W. PREVIOUS SPECIMEN REJECTED DUE TOSPECIMEN BEING HEMOLYZED. 09/21/241314 Jevon Angeles. Performed By: #### L 500.4050, L501.2450 ####[facility] [address] [place], [address] Creatinine [Mass/Vol] 0.67 mg/dL Low 0.70-1.20 [facility] Comment on above: Order Comment: REDRA W. PREVIOUS SPECIMEN REJECTED DUE TOSPECIMEN BEING HEMOLYZED. 09/21/24 1315 Jevon Angeles. Performed By: #### L 500.4050, L501.2450 ####[facility] [address] [place], [address] ECRCL 107.12 ml/min Normal 50-250 [facility] Comment on above: Order Comment: REDRA W. PREVIOUS SPECIMEN REJECTED DUE TOSPECIMEN BEING HEMOLYZED. 09/21/245 Jevon Squires Performed By: #### L 500.4050, L501.2450 ####[facility] [address] [place], [address] GAP 11 Normal 5-15 [facility] Comment on above: Order Comment: REDRA W. PREVIOUS SPECIMEN REJECTED DUE TOSPECIMEN BEING HEMOLYZED. 09/21/245 Jevon Squires Performed By: #### L 500.4050, L501.2450 ####[facility] [address] [place], [address] GFR/1.73 sq M.predicted among non-blacks MDRD (S/P/Bld) [Vol rate/Area] 105 mL/min/{1.73_m2} Normal >60 [facility] Comment on above: Order Comment: REDRA W. PREVIOUS SPECIMEN REJECTED DUE TOSPECIMEN BEING HEMOLYZED. 09/21/245 Jevon Squires Result Comment: mL/m in/1.73m2 CKD-EPI Creatinine Equation (2020) Performed By: #### L 500.4050, L501.2450 ####[facility] [address] [place], [address] Globulin (S) [Mass/Vol] 3.3 g/dL Normal 2.2-4.2 [facility] Comment on above: Order Comment: REDRA W. PREVIOUS SPECIMEN REJECTED DUE TOSPECIMEN BEING HEMOLYZED. 09/21/241314 Jevon Angeles. Performed By: #### L 500.4050, L501.2450 ####[facility] [address] [place], [address] Glucose [Mass/Vol] 336 mg/dL High 70-99 [facility] Comment on above: Order Comment: REDRA W. PREVIOUS SPECIMEN REJECTED DUE TOSPECIMEN BEING HEMOLYZED. 09/21/241314 Jevon Angeles. Performed By: #### L 500.4050, L501.2450 ####[facility] [address] [place], [address] Potassium [Moles/Vol] 3.3 mmol/L Normal 3.3-5.1 [facility] Comment on above: Order Comment: REDRA W. PREVIOUS SPECIMEN REJECTED DUE TOSPECIMEN BEING HEMOLYZED. 09/21/241314 Jevon Angeles. Performed By: #### L 500.4050, L501.2450 ####[facility] [address] [place], [address] Sodium [Moles/Vol] 132 mmol/L Low 133-145 [facility] Comment on above: Order Comment: REDRA W. PREVIOUS SPECIMEN REJECTED DUE TOSPECIMEN BEING HEMOLYZED. 09/21/241314 Jevon Squires Performed By: #### L 500.4050, L501.2450 ####[facility] [address] [place], [address] T PROT 6.9 g/dL Normal 5.9-8.4 [facility] Comment on above: Order Comment: REDRA W. PREVIOUS SPECIMEN REJECTED DUE TOSPECIMEN BEING HEMOLYZED. 09/21/241314 Jevon R Stoner. Performed By: #### L 500.4050, L501.2450 ####[facility] [address] [place], [address] Urea nitrogen [Mass/Vol] 9 mg/dL Normal 4-19 [facility] Comment on above: Order Comment: REDRA W. PREVIOUS SPECIMEN REJECTED DUE TOSPECIMEN BEING HEMOLYZED. 09/21/24 1315 Jevon Vergarar. Performed By: #### L 500.4050, L501.2450 ####[facility] [address] [place], [address] ALB Normal 3.5-5.0 [facility] Comment on above: Result Comment: This specimen has been REJECTED due to Laboratory criteria:Hemolyzed.ED STAFF has been notified of need of recollection.09/21/24 1314 Jevon Vergarar Performed By: #### L 100.0100, L500.4050 ####[facility] [address] [place], [address] ALK PHOS Normal 35-104 [facility] Comment on above: Result Comment: This specimen has been REJECTED due to Laboratory criteria:Hemolyzed.ED STAFF has been notified of need of recollection.09/21/24 1314 Jevon Vergarar Performed By: #### L 100.0100, L500.4050 ####[facility] [address] [place], [address] ALT Normal <=34 [facility] Comment on above: Result Comment: This specimen has been REJECTED due to Laboratory criteria:Hemolyzed.ED STAFF has been notified of need of recollection.09/21/24 1314 Jevon Vergarar Performed By: #### L 100.0100, L500.4050 ####[facility] [address] [place], [address] AST Normal <=31 [facility] Comment on above: Result Comment: This specimen has been REJECTED due to Laboratory criteria:Hemolyzed.ED STAFF has been notified of need of recollection.09/21/24 1314 Jevon R Stoner Performed By: #### L 100.0100, L500.4050 ####[facility] [address] [place], [address] BUN Normal 4-19 [facility] Comment on above: Result Comment: This specimen has been REJECTED due to Laboratory criteria:Hemolyzed.ED STAFF has been notified of need of recollection.09/21/244 Jevon R Stoner Performed By: #### L 100.0100, L500.4050 ####[facility] [address] [place], [address] BUN/CRE Normal 10-20 [facility] Comment on above: Result Comment: This specimen has been REJECTED due to Laboratory criteria:Hemolyzed.ED STAFF has been notified of need of recollection.09/21/244 Jevon R Stoner Performed By: #### L 100.0100, L500.4050 ####[facility] [address] [place], [address] Calcium Normal 7.6-11.0 [facility] Comment on above: Result Comment: This specimen has been REJECTED due to Laboratory criteria:Hemolyzed.ED STAFF has been notified of need of recollection.09/21/241313 Jevon R Stoner Performed By: #### L 100.0100, L500.4050 ####[facility] [address] [place], [address] CL Normal 98-108 [facility] Comment on above: Result Comment: This specimen has been REJECTED due to Laboratory criteria:Hemolyzed.ED STAFF has been notified of need of recollection.09/21/241313 Jevon R Stoner Performed By: #### L 100.0100, L500.4050 ####[facility] [address] [place], [address] CO2 Normal 21.0-32.0 [facility] Comment on above: Result Comment: This specimen has been REJECTED due to Laboratory criteria:Hemolyzed.ED STAFF has been notified of need of recollection.09/21/24 1314 Jevon R Stoner Performed By: #### L 100.0100, L500.4050 ####[facility] [address] [place], [address] CREAT,SERUM Normal 0.70-1.20 [facility] Comment on above: Result Comment: This specimen has been REJECTED due to Laboratory criteria:Hemolyzed.ED STAFF has been notified of need of recollection.09/21/24 1314 Jevon R Stoner Performed By: #### L 100.0100, L500.4050 ####[facility] [address] [place], [address] eGFR Normal >60 [facility] Comment on above: Result Comment: This specimen has been REJECTED due to Laboratory criteria:Hemolyzed.ED STAFF has been notified of need of recollection.09/21/244 Jevon R Stoner Performed By: #### L 100.0100, L500.4050 ####[facility] [address] [place], [address] GAP Normal 5-15 [facility] Comment on above: Result Comment: This specimen has been REJECTED due to Laboratory criteria:Hemolyzed.ED STAFF has been notified of need of recollection.09/21/24 1314 Jevon R Stoner Performed By: #### L 100.0100, L500.4050 ####[facility] [address] [place], [address] GLU Normal 70-99 [facility] Comment on above: Result Comment: This specimen has been REJECTED due to Laboratory criteria:Hemolyzed.ED STAFF has been notified of need of recollection.09/21/24 1314 Jevon R Stoner Performed By: #### L 100.0100, L500.4050 ####[facility] [address] [place], [address] Potassium Normal 3.3-5.1 [facility] Comment on above: Result Comment: This specimen has been REJECTED due to Laboratory criteria:Hemolyzed.ED STAFF has been notified of need of recollection.09/21/241313 Jevon R Stoner Performed By: #### L 100.0100, L500.4050 ####[facility] [address] [place], [address] T BILI Normal 0.00-1.30 [facility] Comment on above: Result Comment: This specimen has been REJECTED due to Laboratory criteria:Hemolyzed.ED STAFF has been notified of need of recollection.09/21/241313 Jevon R Stoner Performed By: #### L 100.0100, L500.4050 ####[facility] [address] [place], [address] T PROT Normal 5.9-8.4 [facility] Comment on above: Result Comment: This specimen has been REJECTED due to Laboratory criteria:Hemolyzed.ED STAFF has been notified of need of recollection.09/21/241313 Jevon R Stoner Performed By: #### L 100.0100, L500.4050 ####[facility] [address] [place], [address] Comprehensive Metabolic Profil Normal 133-145 [facility] Comment on above: Result Comment: This specimen has been REJECTED due to Laboratory criteria:Hemolyzed.ED STAFF has been notified of need of recollection.09/21/241313 Jevon R Stoner Performed By: #### L 100.0100, L500.4050 ####[facility] [address] [place], [address] Creatinine [Mass/Vol]Ordered By: Riccardo Hillman on 09-21-2024 Serum creatinine measurement (mass/volume) 0.67 mg/dL Low 0.70-1.20 [facility] Emergency Department Summary on 09-21-2024 Emergency Department Summary Normal [facility] Eosinophil percentageOrdered By: Nina Richardson on 09-21-2024 Eosinophils/100 WBC (Bld) 0.6 % 0-5 [facility] Eosinophil percentage 0.6 % 0-5 [facility] Erythrocyte distribution wid th (RBC) [Ratio]Ordered By: Nina Richardson on 09-21-2024 Erythrocyte distribution width ratio 13.0 % 11.6-14.6 [facility] Erythrocyte distribution width standard deviation 39.7 fl 35.1-43.9 [facility] Erythrocyte distribution wid th ratioOrdered By: Nina Richardson on 09-21-2024 Erythrocyte distribution width (RBC) [Ratio] 13.0 % 11.6-14.6 [facility] Erythrocyte distribution wid th standard deviationOrdered By: Nina Richardson on 09-21-2024 Erythrocyte distribution width (RBC) [Ratio] 39.7 fl 35.1-43.9 [facility] Estimation of creatinine sylvain aranceOrdered By: Riccardo Hillman on 09-21-2024 Estimation of creatinine clearance 107.12 ml/min 50-250 [facility] GFR/1.73 sq M.predicted estephanie g non-blacks MDRD (S/P/Bld) [Vol rate/Area]Ordered By: Riccardo Hillman on 09-21-2024 Glomerular filtration rate (GFR) estimation/1.73 sq m using serum, plasma, or whole b 105 >60 [facility] Glomerular filtration rate ( GFR) estimation/1.73 sq m using serum, plasma, or whole bOrdered By: Riccardo Hillman on 09-21-2024 GFR/1.73 sq M.predicted among non-blacks MDRD (S/P/Bld) [Vol rate/Area] 105 mL/min/{1.73_m2} >60 [facility] Glucose Ql (U)Ordered By: Es Richardson on 09-21-2024 Urine glucose detection 1000 mg/dl High Normal [facility] Glucose [Mass/Vol]Ordered By : Riccardo Hillman on 09-21-2024 Serum glucose measurement (mass/volume) 336 mg/dL High 70-99 [facility] Hematocrit Auto (Bld) [Volum e fraction]Ordered By: Nina Richardson on 09-21-2024 Hematocrit (Bld) [Volume fraction] 37.7 % 37- [facility] Automated blood hematocrit (percentage) 37.7 % 37- [facility] Hemoglobin measurementOrdere d By: Nina Richardson on 09-21-2024 Hemoglobin (Bld) [Mass/Vol] 13.0 g/dL 12.0-15.0 [facility] Hemoglobin measurement 13.0 g/dL 12.0-15.0 [facility] Immature granulocytes/100 WB C Auto (Bld)Ordered By: Nina Richardson on 09-21-2024 Immature granulocytes/100 WBC (Bld) 0.300 % 0.0-0.9 [facility] Automated immature granulocyte percentage 0.300 % 0.0-0.9 [facility] Ketones Test strip Ql (U)Ord ered By: Nina Richardson on 09-21-2024 Ketones Ql (U) Negative Negative [facility] Lipaseon 09-21-2024 Lipase [Catalytic activity/Vol] 16 U/L Normal - [facility] Comment on above: Order Comment: REUBEN W. PREVIOUS SPECIMEN REJECTED DUE TOSPECIMEN BEING HEMOLYZED. 09/21/24 1315 Jevon Angeles. Result Comment: Gege edgar note:LIPASE revised reference range effective 22.New Lipase methodology. Expected to produce lower valuesthan the previous assay method.NEW Reference Range: 13 - 75 U/L Performed By: #### L 500.4050, L501.2450 ####[facility] [address] [place], [address] Lipase measurementOrdered By : Riccardo Hillman on 09-21-2024 Lipase measurement 16 U/L 13-75 [facility] Lymphocytes Auto (Unsp spec) [#/Vol]Ordered By: Nina Richardson on 09-21-2024 Absolute lymphocyte count 1.03 X10^3/uL 0.83-4.51 [facility] Lymphocytes/100 WBC Auto (Un sp spec)Ordered By: Nina Richardson on 09-21-2024 Automated lymphocyte count as percentage of total leukocytes 9.8 % Low 19-41 [facility] MCV (RBC) [Entitic vol]Order ed By: Nina Richardson on 09-21-2024 MCV (mean corpuscular volume) determination 84.0 fL 81-99 [facility] MCV (mean corpuscular volume ) determinationOrdered By: Nina Richardson on 09-21-2024 MCV (RBC) [Entitic vol] 84.0 fL 81-99 [facility] Mean corpuscular hemoglobin (MCH) determinationOrdered By: Nina Richardson on 09-21-2024 MCH (RBC) [Entitic mass] 29.0 pg 27.0-32.0 [facility] Mean corpuscular hemoglobin (MCH) determination 29.0 pg 27.0-32.0 [facility] Mean corpuscular hemoglobin concentration (MCHC) determinationOrdered By: Nina Richardson on 09-21-2024 Mean corpuscular hemoglobin concentration (MCHC) determination 34.5 g/dL 32-36 [facility] Mean platelet volume determi nationOrdered By: Nina Richardson on 09-21-2024 Mean platelet volume determination 9.3 fl 6.2-12.0 [facility] Microscopic analysis of urin e for red blood cells (RBC)Ordered By: Nina Richardson on 09-21-2024 Microscopic analysis of urine for red blood cells (RBC) 0-5 SEEN /hpf 5-10 [facility] Monocyte percentageOrdered B y: Nina Richardson on 09-21-2024 Monocytes/100 WBC (Bld) 4.3 % 0-10 [facility] Monocyte percentage 4.3 % 0-10 [facility] Mucus LM Ql (Urine sed)Order ed By: Nina Richardson on 09-21-2024 Mucus Ql (Urine sed) 0 SEEN /hpf [facility] Neutrophil percentageOrdered By: Nina Richardson on 09-21-2024 Neutrophils/100 WBC (Bld) 84.6 % High 47-70 [facility] Neutrophil percentage 84.6 % High 47-70 [facility] Nitrite Test strip Ql (U)Ord ered By: Nina Richardson on 09-21-2024 Nitrite Ql (U) Negative Negative [facility] No Panel InformationOrdered By: Riccardo Hillman on 09-21-2024 19 U/L <32 [facility] Nucleated red blood cell per centageOrdered By: Nina Richardson on 09-21-2024 Nucleated red blood cell percentage 0 % 0-5 [facility] Platelet countOrdered By: Es Richardson on 09-21-2024 Platelets (Bld) [#/Vol] 275 10*3/uL 150-450 [facility] Platelet count 275 K/mm3 150-450 [facility] Potassium (Unsp spec) [Mass/ Vol]Ordered By: Riccardo Hillman on 09-21-2024 Potassium measurement (mass/volume) 3.3 mmol/L 3.3-5.1 [facility] Potassium measurement (mass/ volume)Ordered By: Riccardo Hillman on 09-21-2024 Potassium (Unsp spec) [Mass/Vol] 3.3 mmol/L 3.3-5.1 [facility] Protein Test strip Ql (U)Ord ered By: Nina Richardson on 09-21-2024 Protein Ql (U) 100 mg/dl High Negative [facility] Urine protein assay by test strip, semi-quantitative 100 mg/dl High Negative [facility] RBC Auto (Bld) [#/Vol]Ordere d By: Nina Richardson on 09-21-2024 RBC (Bld) [#/Vol] 4.49 10*6/uL 4.2-5.4 [facility] Automated blood erythrocyte count 4.49 M/mm3 4.2-5.4 [facility] Serum creatinine measurement (mass/volume)Ordered By: Riccardo Hillman on 09-21-2024 Creatinine [Mass/Vol] 0.67 mg/dL Low 0.70-1.20 [facility] Serum globulin measurementOr dered By: Riccardo Hillman on 09-21-2024 Globulin (S) [Mass/Vol] 3.3 g/dL 2.2-4.2 [facility] Serum globulin measurement 3.3 g/dL 2.2-4.2 [facility] Serum glucose measurement (m ass/volume)Ordered By: Riccardo Hillman on 09-21-2024 Glucose [Mass/Vol] 336 mg/dL High 70-99 [facility] Serum or plasma alanine hamilton otransferase (ALT) measurementOrdered By: Riccardo Hillman on 09-21-2024 ALT [Catalytic activity/Vol] 13 U/L <35 [facility] Serum or plasma albumin xiomara urement (mass/volume)Ordered By: Riccardo Hillman on 09-21-2024 Albumin [Mass/Vol] 3.6 g/dL 3.5-5.0 [facility] Serum or plasma albumin/glob ulin mass ratioOrdered By: Riccardo Hillman on 09-21-2024 Albumin/Globulin [Mass ratio] 1.1 {ratio} 0.9-2.4 [facility] Serum or plasma alkaline sabiha sphatase measurementOrdered By: Riccardo Hillman on 09-21-2024 ALP [Catalytic activity/Vol] 128 U/L High 35-104 [facility] Serum or plasma calcium xiomara urement (mass/volume)Ordered By: Riccardo Hillman on 09-21-2024 Calcium [Mass/Vol] 9.3 mg/dL 7.6-11.0 [facility] Serum or plasma urea nitroge n measurement (mass/volume)Ordered By: Riccardo Hillman on 09-21-2024 Urea nitrogen [Mass/Vol] 9 mg/dL 4-19 [facility] Sodium levelOrdered By: Riccardo Hillman on 09-21-2024 Sodium [Moles/Vol] 132 mmol/L Low 133-145 [facility] Sodium level 132 mmol/L Low 133-145 [facility] Specific gravity (U) [Rel de nsity]Ordered By: Nina Richardson on 09-21-2024 Urine specific gravity measurement 1.010 1.002-1.03 0 [facility] Squamous epithelial cells de tection in urine sediment by light microscopyOrdered By: Nina Richardson on 09-21-2024 Epithelial cells.squamous LM Ql (Urine sed) 0-5 SEEN /hpf 5-10 [facility] Total proteinOrdered By: Guerita Hillman on 09-21-2024 Protein [Mass/Vol] 6.9 g/dL 5.9-8.4 [facility] Total protein 6.9 g/dL 5.9-8.4 [facility] Urea nitrogen [Mass/Vol]Orde red By: Riccardo Hillman on 09-21-2024 Serum or plasma urea nitrogen measurement (mass/volume) 9 mg/dL 4-19 [facility] Urinalysis, Completeon 09-21 EPI,SQUAMOUS 0-5 SEEN Normal 5-10 [facility] Comment on above: Order Comment: LUISA CTOR TO SPECIFY Performed By: #### L 400.0001 ####[facility] [address] [place], [address] RBC 0-5 SEEN Normal 0-5 [facility] Comment on above: Order Comment: LUISA CTOR TO SPECIFY Performed By: #### L 400.0001 ####[facility] [address] [place], [address] YEAST RARE Normal None Seen [facility] Comment on above: Order Comment: LUISA CTOR TO SPECIFY Performed By: #### L 400.0001 ####[facility] [address] [place], [address] BACTERIA 0 SEEN Normal None Seen [facility] Comment on above: Order Comment: LUISA CTOR TO SPECIFY Performed By: #### L 400.0001 ####[facility] [address] [place], [address] Mucus Ql (Urine sed) 0 SEEN Normal [facility] Comment on above: Order Comment: LUISA CTOR TO SPECIFY Performed By: #### L 400.0001 ####[facility] [address] [place], [address] WBC 0 SEEN Normal 0-5 [facility] Comment on above: Order Comment: LUISA CTOR TO SPECIFY Performed By: #### L 400.0001 ####[facility] [address] [place], [address] Urine blood detectionOrdered By: Nina Richardson on 09-21-2024 Urine blood detection 25 /ul High Negative [facility] Urine clarityOrdered By: Yamil Richardson on 09-21-2024 Clarity (U) Clear Clear [facility] Urine color determinationOrd ered By: Nina Richardson on 09-21-2024 Color (U) Yellow Yellow [facility] Urine glucose detectionOrder ed By: Nina Richardson on 09-21-2024 Glucose Ql (U) 1000 mg/dl High Normal [facility] Urine leukocyte esterase det ection by dipstickOrdered By: Nina Richardson on 09-21-2024 Leukocyte esterase Test strip Ql (U) Negative Negative [facility] Urine pHOrdered By: Martin Richardson on 09-21-2024 pH (U) 7.0 [pH] 5.0 - 8.0 [facility] Urine sediment bacteria coun t by microscopy (number/high power field)Ordered By: Nina Richardson on 09-21-2024 Bacteria LM.HPF (Urine sed) [#/Area] 0 /[HPF] None Seen [facility] Urine sediment yeast count b y microscopy (number/high powered field)Ordered By: Nina Richardsno on 09-21-2024 Yeast LM.HPF (Urine sed) [#/Area] RARE /hpf None Seen [facility] Urine specific gravity measu rementOrdered By: Nina Richardson on 09-21-2024 Specific gravity (U) [Rel density] 1.010 1.002-1.03 0 [facility] Urine total bilirubin detect ion by test stripOrdered By: Nina Richardson on 09-21-2024 Urine total bilirubin detection by test strip Negative Negative [facility] Urine urobilinogen measureme ntOrdered By: Nina Richardson on 09-21-2024 Urobilinogen Ql (U) Normal mg/dl Normal [facility] Urobilinogen Ql (U)Ordered B y: Nina Richardson on 09-21-2024 Urine urobilinogen measurement Normal mg/dl Normal [facility] White blood cell (WBC) count Ordered By: Nina Richardson on 09-21-2024 WBC (Bld) [#/Vol] 10.5 10*3/uL 4.4-11.0 [facility] White blood cell (WBC) count 10.5 K/mm3 4.4-11.0 [facility] White blood cell countOrdere d By: Nina Rihcardson on 09-21-2024 White blood cell count 0 SEEN /hpf 0-5 [facility] White blood cell count 0 SEEN /hpf [facility] Yeast LM.HPF (Urine sed) [#/ Area]Ordered By: Nina Richardson on 09-21-2024 Urine sediment yeast count by microscopy (number/high powered field) RARE /hpf None Seen [facility] pH (U)Ordered By: Nina Richardson on 09-21-2024 Urine pH 7.0 5.0 - 8.0 [facility] Absolute lymphocyte countOrd ered By: Latricia Aaron on 09-16-2024 Lymphocytes Auto (Unsp spec) [#/Vol] 1.72 10*3/uL 0.83-4.51 [facility] Absolute neutrophil countOrd ered By: Latricia Aaron on 09-16-2024 Absolute neutrophil count 10.5 X10^3/uL High 2.0-7.7 [facility] Anion gap [Moles/Vol]Ordered By: Brenda Posadas on 09-16-2024 Anion gap in Serum or Plasma 10 10-16 [facility] Anion gap in Serum or Plasma Ordered By: Brenda Posadas on 09-16-2024 Anion gap [Moles/Vol] 10 mmol/L 10-16 [facility] Automated lymphocyte count a s percentage of total leukocytesOrdered By: Latricia Aaron on 09-16-2024 Lymphocytes/100 WBC Auto (Unsp spec) 13.0 % Low 19-41 [facility] BUN/creatinine ratioOrdered By: Brenda Posadas on 09-16-2024 Urea nitrogen/Creatinine [Mass ratio] 24.8 mg/mg High 10 [facility] BUN/creatinine ratio 24.8 RATIO High - [facility] Basic Metabolic Profile (BMP )on 09-16-2024 BUN/CRE 24.8 RATIO High 03-23 [facility] Comment on above: Performed By: #### L 500.2500, L100.0100 ####[facility] [address] [place], [place], [id number] Calcium [Mass/Vol] 9.3 mg/dL Normal 7.6-11.0 [facility] Comment on above: Performed By: #### L 500.2500, L100.0100 ####[facility] [address] [place], [address] Chloride [Moles/Vol] 101 mmol/L Normal 98-108 [facility] Comment on above: Performed By: #### L 500.2500, L100.0100 ####[facility] [address] [place], [address] CO2 [Moles/Vol] 27.0 mmol/L Normal 21.0-32.0 [facility] Comment on above: Performed By: #### L 500.2500, L100.0100 ####[facility] [address] [place], [address] Creatinine [Mass/Vol] 0.69 mg/dL Low 0.70-1.20 [facility] Comment on above: Performed By: #### L 500.2500, L100.0100 ####[facility] [address] [place], [address] ECRCL 104.49 ml/min Normal 50-250 [facility] Comment on above: Performed By: #### L 500.2500, L100.0100 ####[facility] [address] [place], [address] GAP 10 Normal 5-15 [facility] Comment on above: Performed By: #### L 500.2500, L100.0100 ####[facility] [address] [place], [address] GFR/1.73 sq M.predicted among non-blacks MDRD (S/P/Bld) [Vol rate/Area] 104 mL/min/{1.73_m2} Normal >60 [facility] Comment on above: Result Comment: mL/m in/1.73m2 CKD-EPI Creatinine Equation (2020) Performed By: #### L 500.2500, L100.0100 ####[facility] [address] [place], [address] Glucose [Mass/Vol] 195 mg/dL High 70-99 [facility] Comment on above: Performed By: #### L 500.2500, L100.0100 ####[facility] [address] [place], [address] Potassium [Moles/Vol] 4.1 mmol/L Normal 3.3-5.1 [facility] Comment on above: Performed By: #### L 500.2500, L100.0100 ####[facility] [address] [place], [address] Sodium [Moles/Vol] 138 mmol/L Normal 133-145 [facility] Comment on above: Performed By: #### L 500.2500, L100.0100 ####[facility] [address] [place], [address] Urea nitrogen [Mass/Vol] 17 mg/dL Normal 4-19 [facility] Comment on above: Performed By: #### L 500.2500, L100.0100 ####[facility] [address] [place], [address] Basophil percentageOrdered B y: Latricia Aaron on 09-16-2024 Basophils/100 WBC (Bld) 0.4 % 0-1 [facility] Basophil percentage 0.4 % 0-1 [facility] Bedside Glucoseon 09-16-2024 FINGERSTICK GLU 204 mg/dL High 74-106 [facility] Comment on above: Result Comment: TALIA GEMENT OF PATIENT CARE PER NURSING PROTOCOL Performed By: #### L 501.080 ####[facility] [address] [place], [address] FINGERSTICK GLU 215 mg/dL High 74-106 [facility] Comment on above: Result Comment: TALIA GEMENT OF PATIENT CARE PER NURSING PROTOCOL Performed By: #### L 501.080 ####[facility] [address] [place], [address] CBC W/Diff, Automatedon 09-02-2024 Absolute Lymph 1.72 X10 3/uL Normal 0.83-4.51 [facility] Comment on above: Performed By: #### L 100.0100 ####[facility] [address] [place], [address] Absolute Neut 10.5 X10 3/uL High 2.0-7.7 [facility] Comment on above: Performed By: #### L 100.0100 ####[facility] [address] [place], [address] Basophils/100 WBC (Bld) 0.4 % Normal 0-1 [facility] Comment on above: Performed By: #### L 100.0100 ####[facility] [address] [place], [address] Eosinophils/100 WBC (Bld) 0.5 % Normal 0-5 [facility] Comment on above: Performed By: #### L 100.0100 ####[facility] [address] [place], [address] Erythrocyte distribution width (RBC) [Ratio] 13.8 % Normal 11.6-14.6 [facility] Comment on above: Performed By: #### L 100.0100 ####[facility] [address] [place], [address] Hematocrit (Bld) [Volume fraction] 35.1 % Low 37-47 [facility] Comment on above: Performed By: #### L 100.0100 ####[facility] [address] [place], [address] Hemoglobin (Bld) [Mass/Vol] 11.4 g/dL Low 12.0-15.0 [facility] Comment on above: Performed By: #### L 100.0100 ####[facility] [address] [place], [address] IG% 0.500 Normal 0.0-0.9 [facility] Comment on above: Result Comment: IG% - Immature Granulocytes (promyelocytes, myelocytes andmetamyelocytes) > 1% indicates that a LEFT SHIFT is Present. Performed By: #### L 100.0100 ####[facility] [address] [place], [address] Lymphocytes/100 WBC (Bld) 13.0 % Low 19-41 [facility] Comment on above: Performed By: #### L 100.0100 ####[facility] [address] [place], [address] MCH (RBC) [Entitic mass] 27.9 pg Normal 27.0-32.0 [facility] Comment on above: Performed By: #### L 100.0100 ####[facility] [address] [place], [address] MCHC (RBC) [Mass/Vol] 32.5 g/dL Normal 32-36 [facility] Comment on above: Performed By: #### L 100.0100 ####[facility] [address] [place], [address] MCV (RBC) [Entitic vol] 85.8 fL Normal 81-99 [facility] Comment on above: Performed By: #### L 100.0100 ####[facility] [address] [place], [address] Monocytes/100 WBC (Bld) 6.2 % Normal 0-10 [facility] Comment on above: Performed By: #### L 100.0100 ####[facility] [address] [place], [address] Neutrophils/100 WBC (Bld) 79.4 % High 47-70 [facility] Comment on above: Performed By: #### L 100.0100 ####[facility] [address] [place], [address] Nucleated RBC (Bld) [#/Vol] 0 10*3/uL Normal 0-5 [facility] Comment on above: Performed By: #### L 100.0100 ####[facility] [address] [place], [address] Platelet mean volume (Bld) [Entitic vol] 9.9 fL Normal 6.2-12.0 [facility] Comment on above: Performed By: #### L 100.0100 ####[facility] [address] [place], [address] Platelets (Bld) [#/Vol] 229 10*3/uL Normal 150-450 [facility] Comment on above: Performed By: #### L 100.0100 ####[facility] [address] [place], [address] RBC (Bld) [#/Vol] 4.09 10*6/uL Low 4.2-5.4 [facility] Comment on above: Performed By: #### L 100.0100 ####[facility] [address] [place], [address] RDW SD 43.5 fl Normal 35.1-43.9 [facility] Comment on above: Performed By: #### L 100.0100 ####[facility] [address] [place], [address] WBC (Bld) [#/Vol] 13.2 10*3/uL High 4.4-11.0 [facility] Comment on above: Performed By: #### L 100.0100 ####[facility] [address] [place], [address] Absolute Neut Normal 2.0-7.7 [facility] Comment on above: Result Comment: CLOT FREDDY, SPOKE WITH RANGLE Performed By: #### L 500.2500, L100.0100 ####[facility] [address] [place], [address] HCT Normal 37-47 [facility] Comment on above: Result Comment: CLOT FREDDY, SPOKE WITH RANGLE Performed By: #### L 500.2500, L100.0100 ####[facility] [address] [place], [address] HGB Normal 12.0-15.0 [facility] Comment on above: Result Comment: CLOT FREDDY, SPOKE WITH RANGLE Performed By: #### L 500.2500, L100.0100 ####[facility] [address] [place], [address] MCH Normal 27.0-32.0 [facility] Comment on above: Result Comment: CLOT FREDDY, SPOKE WITH RANGLE Performed By: #### L 500.2500, L100.0100 ####[facility] [address] [place], [address] MCHC Normal 32-36 [facility] Comment on above: Result Comment: CLOT FREDDY, SPOKE WITH RANGLE Performed By: #### L 500.2500, L100.0100 ####[facility] [address] [place], [address] MCV Normal 81-99 [facility] Comment on above: Result Comment: CLOT FREDDY, SPOKE WITH RANGLE Performed By: #### L 500.2500, L100.0100 ####[facility] [address] [place], [address] NEUT% Normal 47-70 [facility] Comment on above: Result Comment: CLOT FREDDY, SPOKE WITH RANGLE Performed By: #### L 500.2500, L100.0100 ####[facility] [address] [place], [address] PLT Normal 150-450 [facility] Comment on above: Result Comment: CLOT FREDDY, SPOKE WITH RANGLE Performed By: #### L 500.2500, L100.0100 ####[facility] [address] [place], [address] RBC Normal 4.2-5.4 [facility] Comment on above: Result Comment: CLOT FREDDY, SPOKE WITH RANGLE Performed By: #### L 500.2500, L100.0100 ####[facility] [address] [place], [address] RDW CV Normal 11.6-14.6 [facility] Comment on above: Result Comment: CLOT FREDDY, SPOKE WITH RANGLE Performed By: #### L 500.2500, L100.0100 ####[facility] [address] [place], [address] RDW SD Normal 35.1-43.9 [facility] Comment on above: Result Comment: CLOT FREDDY, SPOKE WITH RANGLE Performed By: #### L 500.2500, L100.0100 ####[facility] [address] [place], [address] WBC Normal 4.4-11.0 [facility] Comment on above: Result Comment: CLOT FREDDY, SPOKE WITH RANGLE Performed By: #### L 500.2500, L100.0100 ####[facility] [address] [place], [address] Calcium [Mass/Vol]Ordered By : Brenda Posadas on 09-16-2024 Serum or plasma calcium measurement (mass/volume) 9.3 mg/dL 7.6-11.0 [facility] Carbon dioxide, total [Moles /volume] in Central venous bloodOrdered By: Brenda Posadas on 09-16-2024 CO2 [Moles/Vol] 27.0 mmol/L 21.0-32.0 [facility] Carbon dioxide, total [Moles/volume] in Central venous blood 27.0 mmol/L 21.0-32.0 [facility] Chloride assayOrdered By: Martin Posadas on 09-16-2024 Chloride [Moles/Vol] 101 mmol/L 98-108 [facility] Chloride assay 101 mmol/L 98-108 [facility] Creatinine [Mass/Vol]Ordered By: Brenda Posadas on 09-16-2024 Serum creatinine measurement (mass/volume) 0.69 mg/dL Low 0.70-1.20 [facility] Eosinophil percentageOrdered By: Latricia Aaron on 09-16-2024 Eosinophils/100 WBC (Bld) 0.5 % 0-5 [facility] [facility] 0.5 % 0-5 [facility] Erythrocyte distribution wid th (RBC) [Ratio]Ordered By: Latricia Aaron on 09-16-2024 Erythrocyte distribution width ratio 13.8 % 11.6-14.6 [facility] Erythrocyte distribution width standard deviation 43.5 fl 35.1-43.9 [facility] Erythrocyte distribution wid th ratioOrdered By: Latricia Aaron on 09-16-2024 Erythrocyte distribution width (RBC) [Ratio] 13.8 % 11.6-14.6 [facility] Erythrocyte distribution wid th standard deviationOrdered By: Latricia Aaron on 09-16-2024 Erythrocyte distribution width (RBC) [Ratio] 43.5 fl 35.1-43.9 [facility] Estimation of creatinine sylvain aranceOrdered By: Brenda Posadas on 09-16-2024 Estimation of creatinine clearance 104.49 ml/min 50-250 [facility] GFR/1.73 sq M.predicted estephanie g non-blacks MDRD (S/P/Bld) [Vol rate/Area]Ordered By: Brenda Posadas on 09-16-2024 Glomerular filtration rate (GFR) estimation/1.73 sq m using serum, plasma, or whole b 104 >60 [facility] Glomerular filtration rate ( GFR) estimation/1.73 sq m using serum, plasma, or whole bOrdered By: Brenda Posadas on 09-16-2024 GFR/1.73 sq M.predicted among non-blacks MDRD (S/P/Bld) [Vol rate/Area] 104 mL/min/{1.73_m2} >60 [facility] Glucose [Mass/Vol]Ordered By : Brenda Posadas on 09-16-2024 Serum glucose measurement (mass/volume) 195 mg/dL High 70-99 [facility] Glucose measurement at bedsi deOrdered By: Latricia Aaron on 09-16-2024 Glucose [Mass/Vol] 204 mg/dL High 74-106 [facility] Glucose measurement at bedside 204 mg/dL High 74-106 [facility] Hematocrit Auto (Bld) [Volum e fraction]Ordered By: Latricia Aaron on 09-16-2024 Hematocrit (Bld) [Volume fraction] 35.1 % Low 37-47 [facility] Automated blood hematocrit (percentage) 35.1 % Low 37-47 [facility] Hemoglobin measurementOrdere d By: Latricia Aaron on 09-16-2024 Hemoglobin (Bld) [Mass/Vol] 11.4 g/dL Low 12.0-15.0 [facility] Hemoglobin measurement 11.4 g/dL Low 12.0-15.0 [facility] Immature granulocytes/100 WB C Auto (Bld)Ordered By: Latricia Aaron on 09-16-2024 Immature granulocytes/100 WBC (Bld) 0.500 % 0.0-0.9 [facility] Automated immature granulocyte percentage 0.500 % 0.0-0.9 [facility] Lymphocytes Auto (Unsp spec) [#/Vol]Ordered By: Latricia Aaron on 09-16-2024 Absolute lymphocyte count 1.72 X10^3/uL 0.83-4.51 [facility] Lymphocytes/100 WBC Auto (Un sp spec)Ordered By: Latricia Aaron on 09-16-2024 Automated lymphocyte count as percentage of total leukocytes 13.0 % Low 19-41 [facility] MCV (RBC) [Entitic vol]Order ed By: Latricia Aaron on 09-16-2024 MCV (mean corpuscular volume) determination 85.8 fL 81-99 [facility] MCV (mean corpuscular volume ) determinationOrdered By: Latricia Aaron on 09-16-2024 MCV (RBC) [Entitic vol] 85.8 fL 81-99 [facility] Mean corpuscular hemoglobin (MCH) determinationOrdered By: Latricia Aaron on 09-16-2024 MCH (RBC) [Entitic mass] 27.9 pg 27.0-32.0 [facility] Mean corpuscular hemoglobin (MCH) determination 27.9 pg 27.0-32.0 [facility] Mean corpuscular hemoglobin concentration (MCHC) determinationOrdered By: Latricia Aaron on 09-16-2024 Mean corpuscular hemoglobin concentration (MCHC) determination 32.5 g/dL 32-36 [facility] Mean platelet volume determi nationOrdered By: Latricia Aaron on 09-16-2024 Mean platelet volume determination 9.9 fl 6.2-12.0 [facility] Monocyte percentageOrdered B y: Latricia Aaron on 09-16-2024 Monocytes/100 WBC (Bld) 6.2 % 0-10 [facility] Monocyte percentage 6.2 % 0-10 [facility] Neutrophil percentageOrdered By: Latricia Aaron on 09-16-2024 Neutrophils/100 WBC (Bld) 79.4 % High 47-70 [facility] Neutrophil percentage 79.4 % High 47-70 [facility] Nucleated red blood cell per centageOrdered By: Latricia Aaron on 09-16-2024 Nucleated red blood cell percentage 0 % 0-5 [facility] Platelet countOrdered By: Tristan Aaron on 09-16-2024 Platelets (Bld) [#/Vol] 229 10*3/uL 150-450 [facility] Platelet count 229 K/mm3 150-450 [facility] Potassium (Unsp spec) [Mass/ Vol]Ordered By: Brenda Posadas on 09-16-2024 Potassium measurement (mass/volume) 4.1 mmol/L 3.3-5.1 [facility] Potassium measurement (mass/ volume)Ordered By: Brenda Posadas on 09-16-2024 Potassium (Unsp spec) [Mass/Vol] 4.1 mmol/L 3.3-5.1 [facility] RBC Auto (Bld) [#/Vol]Ordere d By: Latricia Aaron on 09-16-2024 RBC (Bld) [#/Vol] 4.09 10*6/uL Low 4.2-5.4 [facility] Automated blood erythrocyte count 4.09 M/mm3 Low 4.2-5.4 [facility] Serum creatinine measurement (mass/volume)Ordered By: Brenda Posadas on 09-16-2024 Creatinine [Mass/Vol] 0.69 mg/dL Low 0.70-1.20 [facility] Serum glucose measurement (m ass/volume)Ordered By: Brenda Posadas on 09-16-2024 Glucose [Mass/Vol] 195 mg/dL High 70-99 [facility] Serum or plasma calcium xiomara urement (mass/volume)Ordered By: Brenda Posadas on 09-16-2024 Calcium [Mass/Vol] 9.3 mg/dL 7.6-11.0 [facility] Serum or plasma urea nitroge n measurement (mass/volume)Ordered By: Brenda Posadas on 09-16-2024 Urea nitrogen [Mass/Vol] 17 mg/dL 09-20 [facility] Sodium levelOrdered By: Gavi Posadas on 09-16-2024 Sodium [Moles/Vol] 138 mmol/L 133-145 [facility] Sodium level 138 mmol/L 133-145 [facility] Urea nitrogen [Mass/Vol]Orde red By: Brenda Posadas on 09-16-2024 Serum or plasma urea nitrogen measurement (mass/volume) 17 mg/dL 09-20 [facility] White blood cell (WBC) count Ordered By: Latricia Aaron on 09-16-2024 WBC (Bld) [#/Vol] 13.2 10*3/uL High 4.4-11.0 [facility] White blood cell (WBC) count 13.2 K/mm3 High 4.4-11.0 [facility] Basic Metabolic Profile (BMP )on 09-15-2024 BUN/CRE 19.5 RATIO Normal 10-20 [facility] Comment on above: Performed By: #### L 500.2500, L100.0100 ####[facility] [address] [place], [place], [id number] Calcium [Mass/Vol] 9.1 mg/dL Normal 7.6-11.0 [facility] Comment on above: Performed By: #### L 500.2500, L100.0100 ####[facility] [address] [place], [address] Chloride [Moles/Vol] 100 mmol/L Normal 98-108 [facility] Comment on above: Performed By: #### L 500.2500, L100.0100 ####[facility] [address] [place], [address] CO2 [Moles/Vol] 27.6 mmol/L Normal 21.0-32.0 [facility] Comment on above: Performed By: #### L 500.2500, L100.0100 ####[facility] [address] [place], [address] Creatinine [Mass/Vol] 0.79 mg/dL Normal 0.70-1.20 [facility] Comment on above: Performed By: #### L 500.2500, L100.0100 ####[facility] [address] [place], [address] ECRCL 93.04 ml/min Normal 50-250 [facility] Comment on above: Performed By: #### L 500.2500, L100.0100 ####[facility] [address] [place], [address] GAP 8 Normal 5-15 [facility] Comment on above: Performed By: #### L 500.2500, L100.0100 ####[facility] [address] [place], [address] GFR/1.73 sq M.predicted among non-blacks MDRD (S/P/Bld) [Vol rate/Area] 89 mL/min/{1.73_m2} Normal >60 [facility] Comment on above: Result Comment: mL/m in/1.73m2 CKD-EPI Creatinine Equation (2020) Performed By: #### L 500.2500, L100.0100 ####[facility] [address] [place], [address] Glucose [Mass/Vol] 172 mg/dL High 70-99 [facility] Comment on above: Performed By: #### L 500.2500, L100.0100 ####[facility] [address] [place], [address] Potassium [Moles/Vol] 3.9 mmol/L Normal 3.3-5.1 [facility] Comment on above: Performed By: #### L 500.2500, L100.0100 ####[facility] [address] [place], [address] Sodium [Moles/Vol] 136 mmol/L Normal 133-145 [facility] Comment on above: Performed By: #### L 500.2500, L100.0100 ####[facility] [address] [place], [address] Urea nitrogen [Mass/Vol] 15 mg/dL Normal 4-19 [facility] Comment on above: Performed By: #### L 500.2500, L100.0100 ####[facility] [address] [place], [address] Bedside Glucoseon 09-15-2024 FINGERSTICK GLU 278 mg/dL High 74-106 [facility] Comment on above: Result Comment: TALIA GEMENT OF PATIENT CARE PER NURSING PROTOCOL Performed By: #### L 501.080 ####[facility] [address] [place], [address] FINGERSTICK GLU 218 mg/dL High 74-106 [facility] Comment on above: Result Comment: TALIA GEMENT OF PATIENT CARE PER NURSING PROTOCOL Performed By: #### L 501.080 ####[facility] [address] [place], [address] FINGERSTICK GLU 234 mg/dL High 74-106 [facility] Comment on above: Result Comment: TLAIA GEMENT OF PATIENT CARE PER NURSING PROTOCOL Performed By: #### L 501.080 ####[facility] [address] [place], [address] FINGERSTICK GLU 188 mg/dL High 74-106 [facility] Comment on above: Result Comment: TALIA CHAMBERS OF PATIENT CARE PER NURSING PROTOCOL Performed By: #### L 501.080 ####[facility] [address] [place], [address] CBC W/Diff, Automatedon 09-02 Absolute Lymph 1.34 X10 3/uL Normal 0.83-4.51 [facility] Comment on above: Performed By: #### L 500.2500, L100.0100 ####[facility] [address] [place], [address] Absolute Neut 6.8 X10 3/uL Normal 2.0-7.7 [facility] Comment on above: Performed By: #### L 500.2500, L100.0100 ####[facility] [address] [place], [address] Basophils/100 WBC (Bld) 0.7 % Normal 0-1 [facility] Comment on above: Performed By: #### L 500.2500, L100.0100 ####[facility] [address] [place], [address] Eosinophils/100 WBC (Bld) 1.2 % Normal 0-5 [facility] Comment on above: Performed By: #### L 500.2500, L100.0100 ####[facility] [address] [place], [address] Erythrocyte distribution width (RBC) [Ratio] 14.0 % Normal 11.6-14.6 [facility] Comment on above: Performed By: #### L 500.2500, L100.0100 ####[facility] [address] [place], [address] Hematocrit (Bld) [Volume fraction] 32.2 % Low 37-47 [facility] Comment on above: Performed By: #### L 500.2500, L100.0100 ####[facility] [address] [place], [address] Hemoglobin (Bld) [Mass/Vol] 10.3 g/dL Low 12.0-15.0 [facility] Comment on above: Performed By: #### L 500.2500, L100.0100 ####[facility] [address] [place], [address] IG% 0.400 Normal 0.0-0.9 [facility] Comment on above: Result Comment: IG% - Immature Granulocytes (promyelocytes, myelocytes andmetamyelocytes) > 1% indicates that a LEFT SHIFT is Present. Performed By: #### L 500.2500, L100.0100 ####[facility] [address] [place], [address] Lymphocytes/100 WBC (Bld) 14.8 % Low 19-41 [facility] Comment on above: Performed By: #### L 500.2500, L100.0100 ####[facility] [address] [place], [address] MCH (RBC) [Entitic mass] 27.5 pg Normal 27.0-32.0 [facility] Comment on above: Performed By: #### L 500.2500, L100.0100 ####[facility] [address] [place], [address] MCHC (RBC) [Mass/Vol] 32.0 g/dL Normal 32-36 [facility] Comment on above: Performed By: #### L 500.2500, L100.0100 ####[facility] [address] [place], [address] MCV (RBC) [Entitic vol] 86.1 fL Normal 81-99 [facility] Comment on above: Performed By: #### L 500.2500, L100.0100 ####[facility] [address] [place], [address] Monocytes/100 WBC (Bld) 8.1 % Normal 0-10 [facility] Comment on above: Performed By: #### L 500.2500, L100.0100 ####[facility] [address] [place], [address] Neutrophils/100 WBC (Bld) 74.8 % High 47-70 [facility] Comment on above: Performed By: #### L 500.2500, L100.0100 ####[facility] [address] [place], [address] Nucleated RBC (Bld) [#/Vol] 0 10*3/uL Normal 0-5 [facility] Comment on above: Performed By: #### L 500.2500, L100.0100 ####[facility] [address] [place], [address] Platelet mean volume (Bld) [Entitic vol] 10.0 fL Normal 6.2-12.0 [facility] Comment on above: Performed By: #### L 500.2500, L100.0100 ####[facility] [address] [place], [address] Platelets (Bld) [#/Vol] 211 10*3/uL Normal 150-450 [facility] Comment on above: Performed By: #### L 500.2500, L100.0100 ####[facility] [address] [place], [address] RBC (Bld) [#/Vol] 3.74 10*6/uL Low 4.2-5.4 [facility] Comment on above: Performed By: #### L 500.2500, L100.0100 ####[facility] [address] [place], [address] RDW SD 43.8 fl Normal 35.1-43.9 [facility] Comment on above: Performed By: #### L 500.2500, L100.0100 ####[facility] [address] [place], [address] WBC (Bld) [#/Vol] 9.0 10*3/uL Normal 4.4-11.0 [facility] Comment on above: Performed By: #### L 500.2500, L100.0100 ####[facility] [address] [place], [address] Consultation - Urologyon Consultation - Urology Normal [facility] Urine Cultureon 09-15-2024 URC Below infection leve l. Yeast, not Ashley albicans [place] Count 1000-10,000 Normal [facility] Comment on above: Performed By: #### L 400.0001, M100.2200 ####[facility] [address] [place], [address] Basic Metabolic Profile (BMP )on 09-14-2024 BUN/CRE 25.9 RATIO High 10-20 [facility] Comment on above: Performed By: #### L 500.2500, L100.0100 ####[facility] [address] [place], [address] Calcium [Mass/Vol] 9.0 mg/dL Normal 7.6-11.0 [facility] Comment on above: Performed By: #### L 500.2500, L100.0100 ####[facility] [address] [place], [address] Chloride [Moles/Vol] 103 mmol/L Normal 98-108 [facility] Comment on above: Performed By: #### L 500.2500, L100.0100 ####[facility] [address] [place], [address] CO2 [Moles/Vol] 20.0 mmol/L Low 21.0-32.0 [facility] Comment on above: Performed By: #### L 500.2500, L100.0100 ####[facility] [address] [place], [address] Creatinine [Mass/Vol] 0.81 mg/dL Normal 0.70-1.20 [facility] Comment on above: Performed By: #### L 500.2500, L100.0100 ####[facility] [address] [place], [address] ECRCL 90.18 ml/min Normal 50-250 [facility] Comment on above: Performed By: #### L 500.2500, L100.0100 ####[facility] [address] [place], [address] GAP 11 Normal 5-15 [facility] Comment on above: Performed By: #### L 500.2500, L100.0100 ####[facility] [address] [place], [address] GFR/1.73 sq M.predicted among non-blacks MDRD (S/P/Bld) [Vol rate/Area] 87 mL/min/{1.73_m2} Normal >60 [facility] Comment on above: Result Comment: mL/m in/1.73m2 CKD-EPI Creatinine Equation (2020) Performed By: #### L 500.2500, L100.0100 ####[facility] [address] [place], [address] Glucose [Mass/Vol] 181 mg/dL High 70-99 [facility] Comment on above: Performed By: #### L 500.2500, L100.0100 ####[facility] [address] [place], [address] Potassium [Moles/Vol] 4.6 mmol/L Normal 3.3-5.1 [facility] Comment on above: Result Comment: Hemo lysis present, Results??could be affected.?? Performed By: #### L 500.2500, L100.0100 ####[facility] [address] [place], [address] Sodium [Moles/Vol] 134 mmol/L Normal 133-145 [facility] Comment on above: Performed By: #### L 500.2500, L100.0100 ####[facility] [address] [place], [address] Urea nitrogen [Mass/Vol] 21 mg/dL High 4-19 [facility] Comment on above: Performed By: #### L 500.2500, L100.0100 ####[facility] [address] [place], [address] Bedside Glucoseon 09-14-2024 FINGERSTICK GLU 188 mg/dL High 74-106 [facility] Comment on above: Result Comment: TALIA GEMENT OF PATIENT CARE PER NURSING PROTOCOL Performed By: #### L 501.080 ####[facility] [address] [place], [address] FINGERSTICK GLU 248 mg/dL High 74-106 [facility] Comment on above: Result Comment: TALIA GEMENT OF PATIENT CARE PER NURSING PROTOCOL Performed By: #### L 501.080 ####[facility] [address] [place], [address] FINGERSTICK GLU 288 mg/dL High 74-106 [facility] Comment on above: Result Comment: TALIA GEMENT OF PATIENT CARE PER NURSING PROTOCOL Performed By: #### L 501.080 ####[facility] [address] [place], [address] FINGERSTICK GLU 172 mg/dL High 74-106 [facility] Comment on above: Result Comment: TALIA GEMENT OF PATIENT CARE PER NURSING PROTOCOL Performed By: #### L 501.080 ####[facility] [address] [place], [address] CBC W/Diff, Automatedon 09-02 Platelets (Bld) [#/Vol] 129 10*3/uL Low 150-450 [facility] Comment on above: Performed By: #### L 500.2500, L100.0100 ####[facility] [address] [place], [address] Culture, Blood (WB)on 2024 CUB LHAND Blood cultures x2, from two different sites No growth in 5 days. Normal [facility] Comment on above: Performed By: #### M 200.1000 ####[facility] [address] [place], [address] Basic Metabolic Profile (BMP )on 09-13-2024 BUN/CRE 17.6 RATIO Normal 10-20 [facility] Comment on above: Performed By: #### L 500.2500, L100.0100 ####[facility] [address] [place], [address] Calcium [Mass/Vol] 9.1 mg/dL Normal 7.6-11.0 [facility] Comment on above: Performed By: #### L 500.2500, L100.0100 ####[facility] [address] [place], [address] Chloride [Moles/Vol] 104 mmol/L Normal 98-108 [facility] Comment on above: Performed By: #### L 500.2500, L100.0100 ####[facility] [address] [place], [address] CO2 [Moles/Vol] 21.1 mmol/L Normal 21.0-32.0 [facility] Comment on above: Performed By: #### L 500.2500, L100.0100 ####[facility] [address] [place], [address] Creatinine [Mass/Vol] 1.02 mg/dL Normal 0.70-1.20 [facility] Comment on above: Performed By: #### L 500.2500, L100.0100 ####[facility] [address] [place], [address] ECRCL 71.49 ml/min Normal 50-250 [facility] Comment on above: Performed By: #### L 500.2500, L100.0100 ####[facility] [address] [place], [address] GAP 11 Normal 5-15 [facility] Comment on above: Performed By: #### L 500.2500, L100.0100 ####[facility] [address] [place], [address] GFR/1.73 sq M.predicted among non-blacks MDRD (S/P/Bld) [Vol rate/Area] 66 mL/min/{1.73_m2} Normal >60 [facility] Comment on above: Result Comment: mL/m in/1.73m2 CKD-EPI Creatinine Equation (2020) Performed By: #### L 500.2500, L100.0100 ####[facility] [address] [place], [address] Glucose [Mass/Vol] 223 mg/dL High 70-99 [facility] Comment on above: Performed By: #### L 500.2500, L100.0100 ####[facility] [address] [place], [address] Potassium [Moles/Vol] 4.2 mmol/L Normal 3.3-5.1 [facility] Comment on above: Performed By: #### L 500.2500, L100.0100 ####[facility] [address] [place], [address] Sodium [Moles/Vol] 136 mmol/L Normal 133-145 [facility] Comment on above: Performed By: #### L 500.2500, L100.0100 ####[facility] [address] [place], [address] Urea nitrogen [Mass/Vol] 18 mg/dL Normal 4-19 [facility] Comment on above: Performed By: #### L 500.2500, L100.0100 ####[facility] [address] [place], [address] Bedside Glucoseon 09-13-2024 FINGERSTICK GLU 207 mg/dL High 74-106 [facility] Comment on above: Result Comment: TALIA GEMENT OF PATIENT CARE PER NURSING PROTOCOL Performed By: #### L 501.080 ####[facility] [address] [place], [address] FINGERSTICK GLU 249 mg/dL High 74-106 [facility] Comment on above: Result Comment: TALIA GEMENT OF PATIENT CARE PER NURSING PROTOCOL Performed By: #### L 501.080 ####[facility] [address] [place], [address] FINGERSTICK GLU 181 mg/dL High -106 [facility] Comment on above: Result Comment: TALIA GEMENT OF PATIENT CARE PER NURSING PROTOCOL Performed By: #### L 501.080 ####[facility] [address] [place], [address] FINGERSTICK GLU 214 mg/dL High 74-106 [facility] Comment on above: Result Comment: TALIA GEMENT OF PATIENT CARE PER NURSING PROTOCOL Performed By: #### L 501.080 ####[facility] [address] [place], [address] CBC W/Diff, Automatedon 09-02 Absolute Lymph 1.69 X10 3/uL Normal 0.83-4.51 [facility] Comment on above: Performed By: #### L 500.2500, L100.0100 ####[facility] [address] [place], [address] Absolute Neut 8.9 X10 3/uL High 2.0-7.7 [facility] Comment on above: Performed By: #### L 500.2500, L100.0100 ####[facility] [address] [place], [address] Basophils/100 WBC (Bld) 0.9 % Normal 0-1 [facility] Comment on above: Performed By: #### L 500.2500, L100.0100 ####[facility] [address] [place], [address] Eosinophils/100 WBC (Bld) 1.6 % Normal 0-5 [facility] Comment on above: Performed By: #### L 500.2500, L100.0100 ####[facility] [address] [place], [address] Erythrocyte distribution width (RBC) [Ratio] 14.0 % Normal 11.6-14.6 [facility] Comment on above: Performed By: #### L 500.2500, L100.0100 ####[facility] [address] [place], [address] Hematocrit (Bld) [Volume fraction] 35.1 % Low 37-47 [facility] Comment on above: Performed By: #### L 500.2500, L100.0100 ####[facility] [address] [place], [address] Hemoglobin (Bld) [Mass/Vol] 11.3 g/dL Low 12.0-15.0 [facility] Comment on above: Performed By: #### L 500.2500, L100.0100 ####[facility] [address] [place], [address] IG% 0.600 Normal 0.0-0.9 [facility] Comment on above: Result Comment: IG% - Immature Granulocytes (promyelocytes, myelocytes andmetamyelocytes) > 1% indicates that a LEFT SHIFT is Present. Performed By: #### L 500.2500, L100.0100 ####[facility] [address] [place], [address] Lymphocytes/100 WBC (Bld) 14.4 % Low 19-41 [facility] Comment on above: Performed By: #### L 500.2500, L100.0100 ####[facility] [address] [place], [address] MCH (RBC) [Entitic mass] 28.2 pg Normal 27.0-32.0 [facility] Comment on above: Performed By: #### L 500.2500, L100.0100 ####[facility] [address] [place], [address] MCHC (RBC) [Mass/Vol] 32.2 g/dL Normal 32-36 [facility] Comment on above: Performed By: #### L 500.2500, L100.0100 ####[facility] [address] [place], [address] MCV (RBC) [Entitic vol] 87.5 fL Normal 81-99 [facility] Comment on above: Performed By: #### L 500.2500, L100.0100 ####[facility] [address] [place], [address] Monocytes/100 WBC (Bld) 6.9 % Normal 0-10 [facility] Comment on above: Performed By: #### L 500.2500, L100.0100 ####[facility] [address] [place], [address] Neutrophils/100 WBC (Bld) 75.6 % High 47-70 [facility] Comment on above: Performed By: #### L 500.2500, L100.0100 ####[facility] [address] [place], [address] Nucleated RBC (Bld) [#/Vol] 0 10*3/uL Normal 0-5 [facility] Comment on above: Performed By: #### L 500.2500, L100.0100 ####[facility] [address] [place], [address] Platelet mean volume (Bld) [Entitic vol] 10.1 fL Normal 6.2-12.0 [facility] Comment on above: Performed By: #### L 500.2500, L100.0100 ####[facility] [address] [place], [address] Platelets (Bld) [#/Vol] 232 10*3/uL Normal 150-450 [facility] Comment on above: Performed By: #### L 500.2500, L100.0100 ####[facility] [address] [place], [address] RBC (Bld) [#/Vol] 4.01 10*6/uL Low 4.2-5.4 [facility] Comment on above: Performed By: #### L 500.2500, L100.0100 ####[facility] [address] [place], [address] RDW SD 44.9 fl High 35.1-43.9 [facility] Comment on above: Performed By: #### L 500.2500, L100.0100 ####[facility] [address] [place], [address] WBC (Bld) [#/Vol] 11.7 10*3/uL High 4.4-11.0 [facility] Comment on above: Performed By: #### L 500.2500, L100.0100 ####[facility] [address] [place], [address] Basic Metabolic Profile (BMP )on 09-12-2024 BUN/CRE 24.0 RATIO High 10-20 [facility] Comment on above: Performed By: #### L 100.0100, L500.2500 ####[facility] [address] [place], [address] Calcium [Mass/Vol] 9.0 mg/dL Normal 7.6-11.0 [facility] Comment on above: Performed By: #### L 100.0100, L500.2500 ####[facility] [address] [place], [address] Chloride [Moles/Vol] 105 mmol/L Normal 98-108 [facility] Comment on above: Performed By: #### L 100.0100, L500.2500 ####[facility] [address] [place], [address] CO2 [Moles/Vol] 17.3 mmol/L Low 21.0-32.0 [facility] Comment on above: Performed By: #### L 100.0100, L500.2500 ####[facility] [address] [place], [address] Creatinine [Mass/Vol] 0.86 mg/dL Normal 0.70-1.20 [facility] Comment on above: Performed By: #### L 100.0100, L500.2500 ####[facility] [address] [place], [address] ECRCL 84.22 ml/min Normal 50-250 [facility] Comment on above: Performed By: #### L 100.0100, L500.2500 ####[facility] [address] [place], [address] GAP 11 Normal 5-15 [facility] Comment on above: Performed By: #### L 100.0100, L500.2500 ####[facility] [address] [place], [address] GFR/1.73 sq M.predicted among non-blacks MDRD (S/P/Bld) [Vol rate/Area] 81 mL/min/{1.73_m2} Normal >60 [facility] Comment on above: Result Comment: mL/m in/1.73m2 CKD-EPI Creatinine Equation (2020) Performed By: #### L 100.0100, L500.2500 ####[facility] [address] [place], [address] Glucose [Mass/Vol] 213 mg/dL High 70-99 [facility] Comment on above: Performed By: #### L 100.0100, L500.2500 ####[facility] [address] [place], [address] Potassium [Moles/Vol] 4.7 mmol/L Normal 3.3-5.1 [facility] Comment on above: Result Comment: Hemo lysis present, Results??could be affected.?? Performed By: #### L 100.0100, L500.2500 ####[facility] [address] [place], [address] Sodium [Moles/Vol] 134 mmol/L Normal 133-145 [facility] Comment on above: Performed By: #### L 100.0100, L500.2500 ####[facility] [address] [place], [address] Urea nitrogen [Mass/Vol] 21 mg/dL High 4-19 [facility] Comment on above: Performed By: #### L 100.0100, L500.2500 ####[facility] [address] [place], [address] Bedside Glucoseon 09-12-2024 FINGERSTICK GLU 271 mg/dL High 74-106 [facility] Comment on above: Result Comment: TALIA CHAMBERS OF PATIENT CARE PER NURSING PROTOCOL Performed By: #### L 501.080 ####[facility] [address] [place], [address] FINGERSTICK GLU 352 mg/dL High 74-106 [facility] Comment on above: Result Comment: TALIA GEMENT OF PATIENT CARE PER NURSING PROTOCOL Performed By: #### L 501.080 ####[facility] [address] [place], [address] FINGERSTICK GLU 195 mg/dL High [address] [facility] Comment on above: Result Comment: TALIA GEMENT OF PATIENT CARE PER NURSING PROTOCOL Performed By: #### L 501.080 ####[facility] [address] [place], [address] FINGERSTICK GLU 210 mg/dL High -106 [facility] Comment on above: Result Comment: TALIA GEMENT OF PATIENT CARE PER NURSING PROTOCOL Performed By: #### L 501.080 ####[facility] [address] [place], [address] FINGERSTICK GLU 331 mg/dL High [address] [place] [address] Comment on above: Result Comment: TALIA GEMENT OF PATIENT CARE PER NURSING PROTOCOL Performed By: #### L 501.080 ####[facility] [address] [place], [address] Bilirubin Test strip Ql (U)O rdered By: Nichelle Mcneil on 09-12-2024 Bilirubin Ql (U) Negative Negative [facility] CBC W/Diff, Automatedon 09-02 PLT EST ADEQUATE Normal ADEQ [facility] Comment on above: Performed By: #### L 100.0100, L500.2500 ####[facility] [address] [place], [address] CNCOon 09-12-2024 CNCO Letter Text Normal [facility] Clarity (U)Ordered By: Juan Mcneil on 09-12-2024 Urine clarity Clear Clear [facility] Color (U)Ordered By: Nichelle Mcneil on 09-12-2024 Urine color determination Straw Yellow [facility] Consultation - Infectious Dx on 09-12-2024 Consultation - Infectious Dx Normal [facility] Epithelial cells.squamous LM Ql (Urine sed)Ordered By: Nichelle Mcneil on 09-12-2024 Squamous epithelial cells detection in urine sediment by light microscopy 0-5 SEEN /hpf 5- [facility] Glucose Ql (U)Ordered By: Olamide Mcneil on 09-12-2024 Urine glucose detection 1000 mg/dl High Normal [facility] Ketones Test strip Ql (U)Ord ered By: Nichelle Mcneil on 09-12-2024 Ketones Ql (U) Negative Negative [facility] Mucus LM Ql (Urine sed)Order ed By: Nichelle Mcneil on 09-12-2024 Mucus Ql (Urine sed) 0 SEEN /hpf [facility] Nitrite Test strip Ql (U)Ord ered By: Nichelle Mcneil on 09-12-2024 Nitrite Ql (U) Negative Negative [facility] Platelet estimateOrdered By: Brenda Posadas on 09-12-2024 Platelets LM Ql (Bld) ADEQUATE ADEQ [facility] Platelets LM Ql (Bld)Ordered By: Brenda Posadas on 09-12-2024 [facility] Protein Test strip Ql (U)Ord ered By: Nichelle Mcneil on 09-12-2024 Protein Ql (U) 15 mg/dl High Negative [facility] Urine protein assay by test strip, semi-quantitative 15 mg/dl High Negative [facility] Specific gravity (U) [Rel de nsity]Ordered By: Nichelle Mcneil on 09-12-2024 Urine specific gravity measurement 1.010 1.002-1.03 0 [facility] Squamous epithelial cells de tection in urine sediment by light microscopyOrdered By: Nichelle Mcneil on 09-12-2024 Epithelial cells.squamous LM Ql (Urine sed) 0-5 SEEN /hpf 5-10 [facility] Urinalysis, Completeon 09-12 EPI,SQUAMOUS 0-5 SEEN Normal - [facility] Comment on above: Order Comment: CLEAN CATCH Performed By: #### L 400.0001, M100.2200 ####[facility] [address] [place], [address] YEAST 1+ /hpf Normal None Seen [facility] Comment on above: Order Comment: CLEAN CATCH Performed By: #### L 400.0001, M100.2200 ####[facility] [address] [place], [address] BACTERIA 0 SEEN Normal None Seen [facility] Comment on above: Order Comment: CLEAN CATCH Performed By: #### L 400.0001, M100.2200 ####[facility] [address] [place], [address] Mucus Ql (Urine sed) 0 SEEN Normal [facility] Comment on above: Order Comment: CLEAN CATCH Performed By: #### L 400.0001, M100.2200 ####[facility] [address] [place], [address] RBC 0 SEEN Normal 0-5 [facility] Comment on above: Order Comment: CLEAN CATCH Performed By: #### L 400.0001, M100.0 ####[facility] [address] [place], [address] WBC 0 SEEN Normal 0-5 [facility] Comment on above: Order Comment: CLEAN CATCH Performed By: #### L 400.0001, M100.2200 ####[facility] [address] [place], [address] Urine clarityOrdered By: Travis Mcneil on 09-12-2024 Clarity (U) Clear Clear [facility] Urine color determinationOrd ered By: Nichelle Mcneil on 09-12-2024 Color (U) Straw Yellow [facility] Urine cultureOrdered By: Travis Mcneil on 09-12-2024 Bacteria identified Cx Nom (U) Yeast, not Ashley albicans Abnormal [facility] Urine culture Yeast, not Ashley albicans Abnormal [facility] Urine glucose detectionOrder ed By: Nichelle Mcneil on 09-12-2024 Glucose Ql (U) 1000 mg/dl High Normal [facility] Urine leukocyte esterase det ection by dipstickOrdered By: Nichelle Mcneil on 09-12-2024 Leukocyte esterase Test strip Ql (U) Negative Negative [facility] Urine pHOrdered By: Nichelle pacheco on 09-12-2024 pH (U) 6.0 [pH] 5.0 - 8.0 [facility] Urine sediment bacteria coun t by microscopy (number/high power field)Ordered By: Nichelle Mcneil on 09-12-2024 Bacteria LM.HPF (Urine sed) [#/Area] 0 /[HPF] None Seen [facility] Urine sediment yeast count b y microscopy (number/high powered field)Ordered By: Nichelle Mcneil on 09-12-2024 Yeast LM.HPF (Urine sed) [#/Area] 1 /[HPF] None Seen [facility] Urine specific gravity measu rementOrdered By: Nichelle Mcneil on 09-12-2024 Specific gravity (U) [Rel density] 1.010 1.002-1.03 0 [facility] Urine total bilirubin detect ion by test stripOrdered By: Nichelle Mcneil on 09-12-2024 Urine total bilirubin detection by test strip Negative Negative [facility] Urine urobilinogen measureme ntOrdered By: Nichelle Mcneil on 09-12-2024 Urobilinogen Ql (U) Normal mg/dl Normal [facility] Urobilinogen Ql (U)Ordered B y: Nichelle Mcneil on 09-12-2024 Urine urobilinogen measurement Normal mg/dl Normal [facility] White blood cell countOrdere d By: Nichelle Mcneil on 09-12-2024 White blood cell count 0 SEEN /hpf 0-5 [facility] White blood cell count 0 SEEN /hpf [facility] Yeast LM.HPF (Urine sed) [#/ Area]Ordered By: Nichelle Mcneil on 09-12-2024 Urine sediment yeast count by microscopy (number/high powered field) 1+ /hpf None Seen [facility] pH (U)Ordered By: Nichelle butler on 09-12-2024 Urine pH 6.0 5.0 - 8.0 [facility] Abdomen Single View (Portabl e)on 09-11-2024 Abdomen Single View (Portable) Normal [facility] Basic Metabolic Profile (BMP )on 09-11-2024 BUN/CRE 21.7 RATIO High 10-20 [facility] Comment on above: Performed By: #### L 500.2500, L100.0100 ####[facility] [address] [place], [address] Calcium [Mass/Vol] 9.0 mg/dL Normal 7.6-11.0 [facility] Comment on above: Performed By: #### L 500.2500, L100.0100 ####[facility] [address] [place], [address] Chloride [Moles/Vol] 104 mmol/L Normal 98-108 [facility] Comment on above: Performed By: #### L 500.2500, L100.0100 ####[facility] [address] [place], [address] CO2 [Moles/Vol] 21.7 mmol/L Normal 21.0-32.0 [facility] Comment on above: Performed By: #### L 500.2500, L100.0100 ####[facility] [address] [place], [address] Creatinine [Mass/Vol] 0.84 mg/dL Normal 0.70-1.20 [facility] Comment on above: Performed By: #### L 500.2500, L100.0100 ####[facility] [address] [place], [address] ECRCL 85.20 ml/min Normal 50-250 [facility] Comment on above: Performed By: #### L 500.2500, L100.0100 ####[facility] [address] [place], [address] GAP 11 Normal 5-15 [facility] Comment on above: Performed By: #### L 500.2500, L100.0100 ####[facility] [address] [place], [address] GFR/1.73 sq M.predicted among non-blacks MDRD (S/P/Bld) [Vol rate/Area] 84 mL/min/{1.73_m2} Normal >60 [facility] Comment on above: Result Comment: mL/m in/1.73m2 CKD-EPI Creatinine Equation (2020) Performed By: #### L 500.2500, L100.0100 ####[facility] [address] [place], [address] Glucose [Mass/Vol] 171 mg/dL High 70-99 [facility] Comment on above: Performed By: #### L 500.2500, L100.0100 ####[facility] [address] [place], [address] Potassium [Moles/Vol] 4.0 mmol/L Normal 3.3-5.1 [facility] Comment on above: Performed By: #### L 500.2500, L100.0100 ####[facility] [address] [place], [address] Sodium [Moles/Vol] 136 mmol/L Normal 133-145 [facility] Comment on above: Performed By: #### L 500.2500, L100.0100 ####[facility] [address] [place], [address] Urea nitrogen [Mass/Vol] 18 mg/dL Normal 4-19 [facility] Comment on above: Performed By: #### L 500.2500, L100.0100 ####[facility] [address] [place], [address] Bedside Glucoseon 09-11-2024 FINGERSTICK GLU 114 mg/dL High 74-106 [facility] Comment on above: Result Comment: TALIA CHAMBERS OF PATIENT CARE PER NURSING PROTOCOL Performed By: #### L 501.080 ####[facility] [address] [place], [address] FINGERSTICK GLU 338 mg/dL High 74-106 [facility] Comment on above: Result Comment: TALIA GEMENT OF PATIENT CARE PER NURSING PROTOCOL Performed By: #### L 501.080 ####[facility] [address] [place], [address] FINGERSTICK GLU 142 mg/dL High 74-106 [facility] Comment on above: Result Comment: TALIA GEMENT OF PATIENT CARE PER NURSING PROTOCOL Performed By: #### L 501.080 ####[facility] [address] [place], [address] CBC W/Diff, Automatedon 09-02 0-2024 Absolute Lymph 2.26 X10 3/uL Normal 0.83-4.51 [facility] Comment on above: Performed By: #### L 500.2500, L100.0100 ####[facility] [address] [place], [address] Absolute Neut 6.8 X10 3/uL Normal 2.0-7.7 [facility] Comment on above: Performed By: #### L 500.2500, L100.0100 ####[facility] [address] [place], [address] Basophils/100 WBC (Bld) 0.6 % Normal 0-1 [facility] Comment on above: Performed By: #### L 500.2500, L100.0100 ####[facility] [address] [place], [address] Eosinophils/100 WBC (Bld) 1.9 % Normal 0-5 [facility] Comment on above: Performed By: #### L 500.2500, L100.0100 ####[facility] [address] [place], [address] Erythrocyte distribution width (RBC) [Ratio] 14.0 % Normal 11.6-14.6 [facility] Comment on above: Performed By: #### L 500.2500, L100.0100 ####[facility] [address] [place], [address] Hematocrit (Bld) [Volume fraction] 33.1 % Low 37-47 [facility] Comment on above: Performed By: #### L 500.2500, L100.0100 ####[facility] [address] [place], [address] Hemoglobin (Bld) [Mass/Vol] 11.0 g/dL Low 12.0-15.0 [facility] Comment on above: Performed By: #### L 500.2500, L100.0100 ####[facility] [address] [place], [address] IG% 0.600 Normal 0.0-0.9 [facility] Comment on above: Result Comment: IG% - Immature Granulocytes (promyelocytes, myelocytes andmetamyelocytes) > 1% indicates that a LEFT SHIFT is Present. Performed By: #### L 500.2500, L100.0100 ####[facility] [address] [place], [address] Lymphocytes/100 WBC (Bld) 22.6 % Normal 19-41 [facility] Comment on above: Performed By: #### L 500.2500, L100.0100 ####[facility] [address] [place], [address] MCH (RBC) [Entitic mass] 28.1 pg Normal 27.0-32.0 [facility] Comment on above: Performed By: #### L 500.2500, L100.0100 ####[facility] [address] [place], [address] MCHC (RBC) [Mass/Vol] 33.2 g/dL Normal 32-36 [facility] Comment on above: Performed By: #### L 500.2500, L100.0100 ####[facility] [address] [place], [address] MCV (RBC) [Entitic vol] 84.4 fL Normal 81-99 [facility] Comment on above: Performed By: #### L 500.2500, L100.0100 ####[facility] [address] [place], [address] Monocytes/100 WBC (Bld) 6.3 % Normal 0-10 [facility] Comment on above: Performed By: #### L 500.2500, L100.0100 ####[facility] [address] [place], [address] Neutrophils/100 WBC (Bld) 68.0 % Normal 47-70 [facility] Comment on above: Performed By: #### L 500.2500, L100.0100 ####[facility] [address] [place], [address] Nucleated RBC (Bld) [#/Vol] 0 10*3/uL Normal 0-5 [facility] Comment on above: Performed By: #### L 500.2500, L100.0100 ####[facility] [address] [place], [address] Platelet mean volume (Bld) [Entitic vol] 9.9 fL Normal 6.2-12.0 [facility] Comment on above: Performed By: #### L 500.2500, L100.0100 ####[facility] [address] [place], [address] Platelets (Bld) [#/Vol] 252 10*3/uL Normal 150-450 [facility] Comment on above: Performed By: #### L 500.2500, L100.0100 ####[facility] [address] [place], [address] RBC (Bld) [#/Vol] 3.92 10*6/uL Low 4.2-5.4 [facility] Comment on above: Performed By: #### L 500.2500, L100.0100 ####[facility] [address] [place], [address] RDW SD 43.2 fl Normal 35.1-43.9 [facility] Comment on above: Performed By: #### L 500.2500, L100.0100 ####[facility] [address] [place], [address] WBC (Bld) [#/Vol] 10.0 10*3/uL Normal 4.4-11.0 [facility] Comment on above: Performed By: #### L 500.2500, L100.0100 ####[facility] [address] [place], [address] Urine Cultureon 09-11-2024 URC Below infection leve l. Presumptive E. coli [place] Count <1000 Normal [facility] Comment on above: Performed By: #### M 100.2200 ####[facility] [address] [place], [address] Vitamin D 1,25-Dihydroxyon 0 09-11-2024 VIT D 1,25 DIHY 29.9 pg/mL Normal 24.8-81.5 [facility] Comment on above: Result Comment: Perf ormed at: BN - [facility] [address] [id number] Director: Karlee Oro MD, Phone: [phone] Performed By: #### L 3300.0960, L501.9520, L506.1001, L100.0100, L500.4050, L509.1000 ####[facility] [address] [place], [address] Basic Metabolic Profile (BMP )on 09-10-2024 BUN/CRE 18.2 RATIO Normal 10-20 [facility] Comment on above: Performed By: #### L 100.0100, L500.2500 ####[facility] [address] [place], [address] Calcium [Mass/Vol] 8.7 mg/dL Normal 7.6-11.0 [facility] Comment on above: Performed By: #### L 100.0100, L500.2500 ####[facility] [address] [place], [address] Chloride [Moles/Vol] 105 mmol/L Normal 98-108 [facility] Comment on above: Performed By: #### L 100.0100, L500.2500 ####[facility] [address] [place], [address] CO2 [Moles/Vol] 23.5 mmol/L Normal 21.0-32.0 [facility] Comment on above: Performed By: #### L 100.0100, L500.2500 ####[facility] [address] [place], [address] Creatinine [Mass/Vol] 1.00 mg/dL Normal 0.70-1.20 [facility] Comment on above: Performed By: #### L 100.0100, L500.2500 ####[facility] [address] [place], [address] ECRCL 71.49 ml/min Normal 50-250 [facility] Comment on above: Performed By: #### L 100.0100, L500.2500 ####[facility] [address] [place], [address] GAP 8 Normal 5-15 [facility] Comment on above: Performed By: #### L 100.0100, L500.2500 ####[facility] [address] [place], [address] GFR/1.73 sq M.predicted among non-blacks MDRD (S/P/Bld) [Vol rate/Area] 68 mL/min/{1.73_m2} Normal >60 [facility] Comment on above: Result Comment: mL/m in/1.73m2 CKD-EPI Creatinine Equation (2020) Performed By: #### L 100.0100, L500.2500 ####[facility] [address] [place], [address] Glucose [Mass/Vol] 251 mg/dL High 70-99 [facility] Comment on above: Performed By: #### L 100.0100, L500.2500 ####[facility] [address] [place], [address] Potassium [Moles/Vol] 4.4 mmol/L Normal 3.3-5.1 [facility] Comment on above: Performed By: #### L 100.0100, L500.2500 ####[facility] [address] [place], [address] Sodium [Moles/Vol] 136 mmol/L Normal 133-145 [facility] Comment on above: Performed By: #### L 100.0100, L500.2500 ####[facility] [address] [place], [address] Urea nitrogen [Mass/Vol] 18 mg/dL Normal 4-19 [facility] Comment on above: Performed By: #### L 100.0100, L500.2500 ####[facility] [address] [place], [address] Bedside Glucoseon 09-10-2024 FINGERSTICK GLU 241 mg/dL High 74-106 [facility] Comment on above: Result Comment: TALIA GEMENT OF PATIENT CARE PER NURSING PROTOCOL Performed By: #### L 501.080 ####[facility] [address] [place], [address] FINGERSTICK GLU 149 mg/dL High 74-106 [facility] Comment on above: Result Comment: TALIA GEMENT OF PATIENT CARE PER NURSING PROTOCOL Performed By: #### L 501.080 ####[facility] [address] [place], [address] FINGERSTICK GLU 250 mg/dL High 74-106 [facility] Comment on above: Result Comment: TALIA GEMENT OF PATIENT CARE PER NURSING PROTOCOL Performed By: #### L 501.080 ####[facility] [address] [place], [address] FINGERSTICK GLU 234 mg/dL High 74-106 [facility] Comment on above: Result Comment: TALIA GEMENT OF PATIENT CARE PER NURSING PROTOCOL Performed By: #### L 501.080 ####[facility] [address] [place], [address] CBC W/Diff, Automatedon 04-0 9-2024 Absolute Lymph 1.84 X10 3/uL Normal 0.83-4.51 [facility] Comment on above: Performed By: #### L 100.0100, L500.2500 ####[facility] [address] [place], [address] Absolute Neut 7.2 X10 3/uL Normal 2.0-7.7 [facility] Comment on above: Performed By: #### L 100.0100, L500.2500 ####[facility] [address] [place], [address] Basophils/100 WBC (Bld) 0.6 % Normal 0-1 [facility] Comment on above: Performed By: #### L 100.0100, L500.2500 ####[facility] [address] [place], [address] Eosinophils/100 WBC (Bld) 1.6 % Normal 0-5 [facility] Comment on above: Performed By: #### L 100.0100, L500.2500 ####[facility] [address] [place], [address] Erythrocyte distribution width (RBC) [Ratio] 14.1 % Normal 11.6-14.6 [facility] Comment on above: Performed By: #### L 100.0100, L500.2500 ####[facility] [address] [place], [address] Hematocrit (Bld) [Volume fraction] 33.4 % Low 37-47 [facility] Comment on above: Performed By: #### L 100.0100, L500.2500 ####[facility] [address] [place], [address] Hemoglobin (Bld) [Mass/Vol] 11.0 g/dL Low 12.0-15.0 [facility] Comment on above: Performed By: #### L 100.0100, L500.2500 ####[facility] [address] [place], [address] IG% 0.500 Normal 0.0-0.9 [facility] Comment on above: Result Comment: IG% - Immature Granulocytes (promyelocytes, myelocytes andmetamyelocytes) > 1% indicates that a LEFT SHIFT is Present. Performed By: #### L 100.0100, L500.2500 ####[facility] [address] [place], [address] Lymphocytes/100 WBC (Bld) 18.5 % Low 19-41 [facility] Comment on above: Performed By: #### L 100.0100, L500.2500 ####[facility] [address] [place], [address] MCH (RBC) [Entitic mass] 27.9 pg Normal 27.0-32.0 [facility] Comment on above: Performed By: #### L 100.0100, L500.2500 ####[facility] [address] [place], [address] MCHC (RBC) [Mass/Vol] 32.9 g/dL Normal 32-36 [facility] Comment on above: Performed By: #### L 100.0100, L500.2500 ####[facility] [address] [place], [address] MCV (RBC) [Entitic vol] 84.8 fL Normal 81-99 [facility] Comment on above: Performed By: #### L 100.0100, L500.2500 ####[facility] [address] [place], [address] Monocytes/100 WBC (Bld) 6.0 % Normal 0-10 [facility] Comment on above: Performed By: #### L 100.0100, L500.2500 ####[facility] [address] [place], [address] Neutrophils/100 WBC (Bld) 72.8 % High 47-70 [facility] Comment on above: Performed By: #### L 100.0100, L500.2500 ####[facility] [address] [place], [address] Nucleated RBC (Bld) [#/Vol] 0 10*3/uL Normal 0-5 [facility] Comment on above: Performed By: #### L 100.0100, L500.2500 ####[facility] [address] [place], [address] Platelet mean volume (Bld) [Entitic vol] 9.9 fL Normal 6.2-12.0 [facility] Comment on above: Performed By: #### L 100.0100, L500.2500 ####[facility] [address] [place], [address] Platelets (Bld) [#/Vol] 245 10*3/uL Normal 150-450 [facility] Comment on above: Performed By: #### L 100.0100, L500.2500 ####[facility] [address] [place], [address] RBC (Bld) [#/Vol] 3.94 10*6/uL Low 4.2-5.4 [facility] Comment on above: Performed By: #### L 100.0100, L500.2500 ####[facility] [address] [place], [address] RDW SD 43.5 fl Normal 35.1-43.9 [facility] Comment on above: Performed By: #### L 100.0100, L500.2500 ####[facility] [address] [place], [address] WBC (Bld) [#/Vol] 10.0 10*3/uL Normal 4.4-11.0 [facility] Comment on above: Performed By: #### L 100.0100, L500.2500 ####[facility] [address] [place], [address] Basic Metabolic Profile (BMP )on 09-09-2024 BUN/CRE 14.8 RATIO Normal 10-20 [facility] Comment on above: Performed By: #### L 500.2500, L100.0100, L501.5200 ####[facility] [address] [place], [address] Calcium [Mass/Vol] 8.5 mg/dL Normal 7.6-11.0 [facility] Comment on above: Performed By: #### L 500.2500, L100.0100, L501.5200 ####[facility] [address] [place], [address] Chloride [Moles/Vol] 104 mmol/L Normal 98-108 [facility] Comment on above: Performed By: #### L 500.2500, L100.0100, L501.5200 ####[facility] [address] [place], [address] CO2 [Moles/Vol] 16.0 mmol/L Low 21.0-32.0 [facility] Comment on above: Performed By: #### L 500.2500, L100.0100, L501.5200 ####[facility] [address] [place], [address] Creatinine [Mass/Vol] 0.99 mg/dL Normal 0.70-1.20 [facility] Comment on above: Performed By: #### L 500.2500, L100.0100, L501.5200 ####[facility] [address] [place], [address] ECRCL 72.12 ml/min Normal 50-250 [facility] Comment on above: Performed By: #### L 500.2500, L100.0100, L501.5200 ####[facility] [address] [place], [address] GAP 13 Normal 5-15 [facility] Comment on above: Performed By: #### L 500.2500, L100.0100, L501.5200 ####[facility] [address] [place], [address] GFR/1.73 sq M.predicted among non-blacks MDRD (S/P/Bld) [Vol rate/Area] 68 mL/min/{1.73_m2} Normal >60 [facility] Comment on above: Result Comment: mL/m in/1.73m2 CKD-EPI Creatinine Equation (2020) Performed By: #### L 500.2500, L100.0100, L501.5200 ####[facility] [address] [place], [address] Glucose [Mass/Vol] 156 mg/dL High 70-99 [facility] Comment on above: Performed By: #### L 500.2500, L100.0100, L501.5200 ####[facility] [address] [place], [address] Potassium [Moles/Vol] 3.7 mmol/L Normal 3.3-5.1 [facility] Comment on above: Performed By: #### L 500.2500, L100.0100, L501.5200 ####[facility] [address] [place], [address] Sodium [Moles/Vol] 132 mmol/L Low 133-145 [facility] Comment on above: Performed By: #### L 500.2500, L100.0100, L501.5200 ####[facility] [address] [place], [address] Urea nitrogen [Mass/Vol] 15 mg/dL Normal 4-19 [facility] Comment on above: Performed By: #### L 500.2500, L100.0100, L501.5200 ####[facility] [address] [place], [address] Bedside Glucoseon 09-09-2024 FINGERSTICK GLU 193 mg/dL High 74-106 [facility] Comment on above: Result Comment: TALIA GEMENT OF PATIENT CARE PER NURSING PROTOCOL Performed By: #### L 501.080 ####[facility] [address] [place], [address] FINGERSTICK GLU 227 mg/dL High 74-106 [facility] Comment on above: Result Comment: TALIA GEMENT OF PATIENT CARE PER NURSING PROTOCOL Performed By: #### L 501.080 ####[facility] [address] [place], [address] FINGERSTICK GLU 228 mg/dL High 74-106 [facility] Comment on above: Result Comment: TALIA GEMENT OF PATIENT CARE PER NURSING PROTOCOL Performed By: #### L 501.080 ####[facility] [address] [place], [address] FINGERSTICK GLU 194 mg/dL High 74-106 [facility] Comment on above: Result Comment: TALIA GEMENT OF PATIENT CARE PER NURSING PROTOCOL Performed By: #### L 501.080 ####[facility] [address] [place], [address] CBC W/Diff, Automatedon 04-0 8-2024 Absolute Lymph 2.64 X10 3/uL Normal 0.83-4.51 [facility] Comment on above: Performed By: #### L 500.2500, L100.0100, L501.5200 ####[facility] [address] [place], [address] Absolute Neut 7.4 X10 3/uL Normal 2.0-7.7 [facility] Comment on above: Performed By: #### L 500.2500, L100.0100, L501.5200 ####[facility] [address] [place], [address] Basophils/100 WBC (Bld) 0.7 % Normal 0-1 [facility] Comment on above: Performed By: #### L 500.2500, L100.0100, L501.5200 ####[facility] [address] [place], [address] Eosinophils/100 WBC (Bld) 2.3 % Normal 0-5 [facility] Comment on above: Performed By: #### L 500.2500, L100.0100, L501.5200 ####[facility] [address] [place], [address] Erythrocyte distribution width (RBC) [Ratio] 14.0 % Normal 11.6-14.6 [facility] Comment on above: Performed By: #### L 500.2500, L100.0100, L501.5200 ####[facility] [address] [place], [address] Hematocrit (Bld) [Volume fraction] 32.6 % Low 37-47 [facility] Comment on above: Performed By: #### L 500.2500, L100.0100, L501.5200 ####[facility] [address] [place], [address] Hemoglobin (Bld) [Mass/Vol] 10.9 g/dL Low 12.0-15.0 [facility] Comment on above: Performed By: #### L 500.2500, L100.0100, L501.5200 ####[facility] [address] [place], [address] IG% 0.500 Normal 0.0-0.9 [facility] Comment on above: Result Comment: IG% - Immature Granulocytes (promyelocytes, myelocytes andmetamyelocytes) > 1% indicates that a LEFT SHIFT is Present. Performed By: #### L 500.2500, L100.0100, L501.5200 ####[facility] [address] [place], [address] Lymphocytes/100 WBC (Bld) 23.9 % Normal 19-41 [facility] Comment on above: Performed By: #### L 500.2500, L100.0100, L501.5200 ####[facility] [address] [place], [address] MCH (RBC) [Entitic mass] 28.5 pg Normal 27.0-32.0 [facility] Comment on above: Performed By: #### L 500.2500, L100.0100, L501.5200 ####[facility] [address] [place], [address] MCHC (RBC) [Mass/Vol] 33.4 g/dL Normal 32-36 [facility] Comment on above: Performed By: #### L 500.2500, L100.0100, L501.5200 ####[facility] [address] [place], [address] MCV (RBC) [Entitic vol] 85.1 fL Normal 81-99 [facility] Comment on above: Performed By: #### L 500.2500, L100.0100, L501.5200 ####[facility] [address] [place], [address] Monocytes/100 WBC (Bld) 5.5 % Normal 0-10 [facility] Comment on above: Performed By: #### L 500.2500, L100.0100, L501.5200 ####[facility] [address] [place], [address] Neutrophils/100 WBC (Bld) 67.1 % Normal 47-70 [facility] Comment on above: Performed By: #### L 500.2500, L100.0100, L501.5200 ####[facility] [address] [place], [address] Nucleated RBC (Bld) [#/Vol] 0 10*3/uL Normal 0-5 [facility] Comment on above: Performed By: #### L 500.2500, L100.0100, L501.5200 ####[facility] [address] [place], [address] Platelet mean volume (Bld) [Entitic vol] 9.6 fL Normal 6.2-12.0 [facility] Comment on above: Performed By: #### L 500.2500, L100.0100, L501.5200 ####[facility] [address] [place], [address] Platelets (Bld) [#/Vol] 247 10*3/uL Normal 150-450 [facility] Comment on above: Performed By: #### L 500.2500, L100.0100, L501.5200 ####[facility] [address] [place], [address] RBC (Bld) [#/Vol] 3.83 10*6/uL Low 4.2-5.4 [facility] Comment on above: Performed By: #### L 500.2500, L100.0100, L501.5200 ####[facility] [address] [place], [address] RDW SD 43.3 fl Normal 35.1-43.9 [facility] Comment on above: Performed By: #### L 500.2500, L100.0100, L501.5200 ####[facility] [address] [place], [address] WBC (Bld) [#/Vol] 11.0 10*3/uL Normal 4.4-11.0 [facility] Comment on above: Performed By: #### L 500.2500, L100.0100, L501.5200 ####[facility] [address] [place], [address] Magnesiumon 09-09-2024 Magnesium [Mass/Vol] 2.9 mg/dL High 1.5-2.2 [facility] Comment on above: Performed By: #### L 500.2500, L100.0100, L501.5200 ####[facility] [address] [place], [address] Magnesium (Unsp spec) [Mass/ Vol]Ordered By: Brenda Posadas on 09-09-2024 Magnesium measurement (mass/volume) 2.9 mg/dL High 1.5-2.2 [facility] Magnesium measurement (mass/ volume)Ordered By: Brenda Posadas on 09-09-2024 Magnesium (Unsp spec) [Mass/Vol] 2.9 mg/dL High 1.5-2.2 [facility] Phosphoruson 09-09-2024 Phosphate [Mass/Vol] 3.2 mg/dL Normal 2.7-4.5 [facility] Comment on above: Performed By: #### L 501.2300 ####[facility] [address] [place], [address] Serum phosphorus measurement Ordered By: Brenda Posadas on 09-09-2024 Serum phosphorus measurement 3.2 mg/dL 2.7-4.5 [facility] Urinalysis, Completeon 09-09 BACTERIA 1+ /hpf Normal None Seen [facility] Comment on above: Order Comment: CLEAN CATCH Performed By: #### L 400.0001 ####[facility] [address] [place], [address] WBC 0-5 SEEN Normal 0-5 [facility] Comment on above: Order Comment: CLEAN CATCH Performed By: #### L 400.0001 ####[facility] [address] [place], [address] EPI,SQUAMOUS 0 SEEN Normal 5-10 [facility] Comment on above: Order Comment: CLEAN CATCH Performed By: #### L 400.0001 ####[facility] [address] [place], [address] Mucus Ql (Urine sed) 0 SEEN Normal [facility] Comment on above: Order Comment: CLEAN CATCH Performed By: #### L 400.0001 ####[facility] [address] [place], [address] RBC 0 SEEN Normal 0-5 [facility] Comment on above: Order Comment: CLEAN CATCH Performed By: #### L 400.0001 ####[facility] [address] [place], [address] Urine cultureOrdered By: [place] Posadas on 09-09-2024 Bacteria identified Cx Nom (U) Presumptive E. coli Abnormal [facility] Urine culture Presumptive E. coli Abnormal [facility] 1,25-dihydroxyvitamin D3 [Ma ss/Vol]Ordered By: Rosaura Crane on 09-08-2024 Serum or plasma calcitriol measurement (mass/volume) 29.9 pg/mL 24.8-81.5 [facility] ALP [Catalytic activity/Vol] Ordered By: Rosaura Crane on 09-08-2024 Serum or plasma alkaline phosphatase measurement 105 U/L High 35-104 [facility] ALT [Catalytic activity/Vol] Ordered By: Rosaura Crane on 09-08-2024 Serum or plasma alanine aminotransferase (ALT) measurement 14 U/L <35 [facility] Albumin [Mass/Vol]Ordered By : Rosaura Crane on 09-08-2024 Serum or plasma albumin measurement (mass/volume) 3.1 g/dL Low 3.5-5.0 [facility] Albumin/Globulin [Mass ratio ]Ordered By: Rosaura Crane on 09-08-2024 Serum or plasma albumin/globulin mass ratio 1.2 RATIO 0.9-2.4 [facility] Basic Metabolic Profile (BMP )on 09-08-2024 BUN/CRE 17.5 RATIO Normal 10-20 [facility] Comment on above: Performed By: #### L 500.2500 ####[facility] [address] [facility] [address] Calcium [Mass/Vol] 9.2 mg/dL Normal 7.6-11.0 [facility] Comment on above: Performed By: #### L 500.2500 ####[facility] [address] [place], [address] Chloride [Moles/Vol] 100 mmol/L Normal 98-108 [facility] Comment on above: Performed By: #### L 500.2500 ####[facility] [address] [place], [address] CO2 [Moles/Vol] 21.1 mmol/L Normal 21.0-32.0 [facility] Comment on above: Performed By: #### L 500.2500 ####[facility] [address] [place], [address] Creatinine [Mass/Vol] 0.89 mg/dL Normal 0.70-1.20 [facility] Comment on above: Performed By: #### L 500.2500 ####[facility] [address] [place], [address] ECRCL 77.55 ml/min Normal 50-250 [facility] Comment on above: Performed By: #### L 500.2500 ####[facility] [address] [place], [address] GAP 13 Normal 5-15 [facility] Comment on above: Performed By: #### L 500.2500 ####[facility] [address], [address] GFR/1.73 sq M.predicted among non-blacks MDRD (S/P/Bld) [Vol rate/Area] 78 mL/min/{1.73_m2} Normal >60 [facility] Comment on above: Result Comment: mL/m in/1.73m2 CKD-EPI Creatinine Equation (2020) Performed By: #### L 500.2500 ####[facility] [address], [address] Glucose [Mass/Vol] 266 mg/dL High 70-99 [facility] Comment on above: Performed By: #### L 500.2500 ####[facility] [address] [place], [address] Potassium [Moles/Vol] 3.2 mmol/L Low 3.3-5.1 [facility] Comment on above: Performed By: #### L 500.2500 ####[facility] [address] [place], [address] Sodium [Moles/Vol] 134 mmol/L Normal 133-145 [facility] Comment on above: Performed By: #### L 500.2500 ####[facility] [address] [place], [address] Urea nitrogen [Mass/Vol] 16 mg/dL Normal 4-19 [facility] Comment on above: Performed By: #### L 500.2500 ####[facility] [address] [place], [address] Bedside Glucoseon 09-08-2024 FINGERSTICK GLU 245 mg/dL High 74-106 [facility] Comment on above: Result Comment: TALIA CHAMBERS OF PATIENT CARE PER NURSING PROTOCOL Performed By: #### L 501.080 ####[facility] [address] [place], [address] FINGERSTICK GLU 245 mg/dL High 74-106 [facility] Comment on above: Result Comment: TALIA GEMENT OF PATIENT CARE PER NURSING PROTOCOL Performed By: #### L 501.080 ####[facility] [address] [place], [address] FINGERSTICK GLU 418 mg/dL High 74-106 [facility] Comment on above: Result Comment: TALIA GEMENT OF PATIENT CARE PER NURSING PROTOCOL Performed By: #### L 501.080 ####[facility] [address] [place], [address] FINGERSTICK GLU 211 mg/dL High -106 [facility] Comment on above: Result Comment: TALIA GEMENT OF PATIENT CARE PER NURSING PROTOCOL Performed By: #### L 501.080 ####[facility] [address] [place], [address] FINGERSTICK GLU 249 mg/dL High [facility] Comment on above: Result Comment: TALIA GEMENT OF PATIENT CARE PER NURSING PROTOCOL Performed By: #### L 501.080 ####[facility] [address] [place], [address] FINGERSTICK GLU 205 mg/dL High [address] [place] [address] Comment on above: Result Comment: TALIA GEMENT OF PATIENT CARE PER NURSING PROTOCOL Performed By: #### L 501.080 ####[facility] [address] [place], [address] FINGERSTICK GLU 250 mg/dL High -106 [facility] Comment on above: Result Comment: TALIA GEMENT OF PATIENT CARE PER NURSING PROTOCOL Performed By: #### L 501.080 ####[facility] [address] [place], [address] Bilirubin, totalOrdered By: Rosaura Crane on 09-08-2024 Bilirubin [Mass/Vol] 0.65 mg/dL 0.00-1.30 [facility] Bilirubin, total 0.65 mg/dL 0.00-1.30 [facility] Blood cultureOrdered By: [place] Posadas on 09-08-2024 Bacteria identified Cx Nom (Bld) No growth in 5 days. [facility] Blood culture No growth in [address] [facility] Bacteria identified Cx Nom (Bld) No growth in 5 days. [facility] Blood culture No growth in [address] [facility] CBC W/Diff, Automatedon 04-0 Absolute Lymph 2.06 X10 3/uL Normal 0.83-4.51 [facility] Comment on above: Performed By: #### L 3300.0960, L501.9520, L506.1001, L100.0100, L500.4050, L509.1000 ####[facility] [address] [place], [address] Absolute Neut 5.2 X10 3/uL Normal 2.0-7.7 [facility] Comment on above: Performed By: #### L 3300.0960, L501.9520, L506.1001, L100.0100, L500.4050, L509.1000 ####[facility] [address] [place], [address] Basophils/100 WBC (Bld) 0.9 % Normal 0-1 [facility] Comment on above: Performed By: #### L 3300.0960, L501.9520, L506.1001, L100.0100, L500.4050, L509.1000 ####[facility] [address] [place], [address] Eosinophils/100 WBC (Bld) 2.4 % Normal 0-5 [facility] Comment on above: Performed By: #### L 3300.0960, L501.9520, L506.1001, L100.0100, L500.4050, L509.1000 ####[facility] [address] [place], [address] Erythrocyte distribution width (RBC) [Ratio] 13.5 % Normal 11.6-14.6 [facility] Comment on above: Performed By: #### L 3300.0960, L501.9520, L506.1001, L100.0100, L500.4050, L509.1000 ####[facility] [address] [place], [address] Hematocrit (Bld) [Volume fraction] 36.8 % Low 37-47 [facility] Comment on above: Performed By: #### L 3300.0960, L501.9520, L506.1001, L100.0100, L500.4050, L509.1000 ####[facility] [address] [place], [address] Hemoglobin (Bld) [Mass/Vol] 12.2 g/dL Normal 12.0-15.0 [facility] Comment on above: Performed By: #### L 3300.0960, L501.9520, L506.1001, L100.0100, L500.4050, L509.1000 ####[facility] [address] [place], [address] IG% 0.400 Normal 0.0-0.9 [facility] Comment on above: Result Comment: IG% - Immature Granulocytes (promyelocytes, myelocytes andmetamyelocytes) > 1% indicates that a LEFT SHIFT is Present. Performed By: #### L 3300.0960, L501.9520, L506.1001, L100.0100, L500.4050, L509.1000 ####[facility] [address] [place], [address] Lymphocytes/100 WBC (Bld) 25.7 % Normal 19-41 [facility] Comment on above: Performed By: #### L 3300.0960, L501.9520, L506.1001, L100.0100, L500.4050, L509.1000 ####[facility] [address] [place], [address] MCH (RBC) [Entitic mass] 27.6 pg Normal 27.0-32.0 [facility] Comment on above: Performed By: #### L 3300.0960, L501.9520, L506.1001, L100.0100, L500.4050, L509.1000 ####[facility] [address] [place], [address] MCHC (RBC) [Mass/Vol] 33.2 g/dL Normal 32-36 [facility] Comment on above: Performed By: #### L 3300.0960, L501.9520, L506.1001, L100.0100, L500.4050, L509.1000 ####[facility] [address] [place], [address] MCV (RBC) [Entitic vol] 83.3 fL Normal 81-99 [facility] Comment on above: Performed By: #### L 3300.0960, L501.9520, L506.1001, L100.0100, L500.4050, L509.1000 ####[facility] [address] [place], [address] Monocytes/100 WBC (Bld) 6.0 % Normal 0-10 [facility] Comment on above: Performed By: #### L 3300.0960, L501.9520, L506.1001, L100.0100, L500.4050, L509.1000 ####[facility] [address] [place], [address] Neutrophils/100 WBC (Bld) 64.6 % Normal 47-70 [facility] Comment on above: Performed By: #### L 3300.0960, L501.9520, L506.1001, L100.0100, L500.4050, L509.1000 ####[facility] [address] [place], [address] Nucleated RBC (Bld) [#/Vol] 0 10*3/uL Normal 0-5 [facility] Comment on above: Performed By: #### L 3300.0960, L501.9520, L506.1001, L100.0100, L500.4050, L509.1000 ####[facility] [address] [place], [address] Platelet mean volume (Bld) [Entitic vol] 9.5 fL Normal 6.2-12.0 [facility] Comment on above: Performed By: #### L 3300.0960, L501.9520, L506.1001, L100.0100, L500.4050, L509.1000 ####[facility] [address] [place], [address] Platelets (Bld) [#/Vol] 275 10*3/uL Normal 150-450 [facility] Comment on above: Performed By: #### L 3300.0960, L501.9520, L506.1001, L100.0100, L500.4050, L509.1000 ####[facility] [address] [place], [address] RBC (Bld) [#/Vol] 4.42 10*6/uL Normal 4.2-5.4 [facility] Comment on above: Performed By: #### L 3300.0960, L501.9520, L506.1001, L100.0100, L500.4050, L509.1000 ####[facility] [address] [place], [address] RDW SD 40.7 fl Normal 35.1-43.9 [facility] Comment on above: Performed By: #### L 3300.0960, L501.9520, L506.1001, L100.0100, L500.4050, L509.1000 ####[facility] [address] [place], [address] WBC (Bld) [#/Vol] 8.0 10*3/uL Normal 4.4-11.0 [facility] Comment on above: Performed By: #### L 3300.0960, L501.9520, L506.1001, L100.0100, L500.4050, L509.1000 ####[facility] [address], [address] CDIFF (PCR)on 09-08-2024 CDIFF Pending [phone] NAP1-B1 Presumptive Negative *for epidemiolologic???use C. Diff PCR Negative- No toxigenic C. Diff Detected Normal [facility] Comment on above: Performed By: #### M 100.637, M100.6796 ####[facility] [address], [address] Calcium ionizedOrdered By: Keerthi Posadas on 09-08-2024 Calcium ionized 1.25 mmol/L 1.09-1.30 [facility] Clostridium difficile detect ion by polymerase chain reactionOrdered By: Rosaura Crane on 09-08-2024 C. difficile DNA CRISSY+probe Ql (Unsp spec) [facility] Comprehensive Metabolic Prof ilon 09-08-2024 Albumin [Mass/Vol] 3.1 g/dL Low 3.5-5.0 [facility] Comment on above: Performed By: #### L 3300.0960, L501.9520, L506.1001, L100.0100, L500.4050, L509.1000 ####[facility] [address] [place], [address] Albumin/Globulin [Mass ratio] 1.2 {ratio} Normal 0.9-2.4 [facility] Comment on above: Performed By: #### L 3300.0960, L501.9520, L506.1001, L100.0100, L500.4050, L509.1000 ####[facility] [address] [place], [address] ALK PHOS 105 U/L High 35-104 [facility] Comment on above: Performed By: #### L 3300.0960, L501.9520, L506.1001, L100.0100, L500.4050, L509.1000 ####[facility] [address] [place], [address] ALT [Catalytic activity/Vol] 14 U/L Normal <=34 [facility] Comment on above: Performed By: #### L 3300.0960, L501.9520, L506.1001, L100.0100, L500.4050, L509.1000 ####[facility] [address] [place], [address] AST [Catalytic activity/Vol] 23 U/L Normal <=31 [facility] Comment on above: Performed By: #### L 3300.0960, L501.9520, L506.1001, L100.0100, L500.4050, L509.1000 ####[facility] [address] [place], [address] Bilirubin [Mass/Vol] 0.65 mg/dL Normal 0.00-1.30 [facility] Comment on above: Performed By: #### L 3300.0960, L501.9520, L506.1001, L100.0100, L500.4050, L509.1000 ####[facility] [address] [place], [address] BUN/CRE 16.9 RATIO Normal 10-20 [facility] Comment on above: Performed By: #### L 3300.0960, L501.9520, L506.1001, L100.0100, L500.4050, L509.1000 ####[facility] [address] [place], [address] Calcium [Mass/Vol] 8.8 mg/dL Normal 7.6-11.0 [facility] Comment on above: Performed By: #### L 3300.0960, L501.9520, L506.1001, L100.0100, L500.4050, L509.1000 ####[facility] [address] [place], [address] Chloride [Moles/Vol] 105 mmol/L Normal 98-108 [facility] Comment on above: Performed By: #### L 3300.0960, L501.9520, L506.1001, L100.0100, L500.4050, L509.1000 ####[facility] [address] [place], [address] CO2 [Moles/Vol] 20.3 mmol/L Low 21.0-32.0 [facility] Comment on above: Performed By: #### L 3300.0960, L501.9520, L506.1001, L100.0100, L500.4050, L509.1000 ####[facility] [address] [place], [address] Creatinine [Mass/Vol] 0.88 mg/dL Normal 0.70-1.20 [facility] Comment on above: Performed By: #### L 3300.0960, L501.9520, L506.1001, L100.0100, L500.4050, L509.1000 ####[facility] [address] [place], [address] ECRCL 78.43 ml/min Normal 50-250 [facility] Comment on above: Performed By: #### L 3300.0960, L501.9520, L506.1001, L100.0100, L500.4050, L509.1000 ####[facility] [address] [place], [address] GAP 11 Normal 5-15 [facility] Comment on above: Performed By: #### L 3300.0960, L501.9520, L506.1001, L100.0100, L500.4050, L509.1000 ####[facility] [address] [place], [address] GFR/1.73 sq M.predicted among non-blacks MDRD (S/P/Bld) [Vol rate/Area] 78 mL/min/{1.73_m2} Normal >60 [facility] Comment on above: Result Comment: mL/m in/1.73m2 CKD-EPI Creatinine Equation (2020) Performed By: #### L 3300.0960, L501.9520, L506.1001, L100.0100, L500.4050, L509.1000 ####[facility] [address] [place], [address] Globulin (S) [Mass/Vol] 2.7 g/dL Normal 2.2-4.2 [facility] Comment on above: Performed By: #### L 3300.0960, L501.9520, L506.1001, L100.0100, L500.4050, L509.1000 ####[facility] [address] [place], [address] Glucose [Mass/Vol] 203 mg/dL High 70-99 [facility] Comment on above: Performed By: #### L 3300.0960, L501.9520, L506.1001, L100.0100, L500.4050, L509.1000 ####[facility] [address] [place], [address] Potassium [Moles/Vol] 3.1 mmol/L Low 3.3-5.1 [facility] Comment on above: Performed By: #### L 3300.0960, L501.9520, L506.1001, L100.0100, L500.4050, L509.1000 ####[facility] [address] [place], [address] Sodium [Moles/Vol] 136 mmol/L Normal 133-145 [facility] Comment on above: Performed By: #### L 3300.0960, L501.9520, L506.1001, L100.0100, L500.4050, L509.1000 ####[facility] [address] [place], [address] T PROT 5.9 g/dL Normal 5.9-8.4 [facility] Comment on above: Performed By: #### L 3300.0960, L501.9520, L506.1001, L100.0100, L500.4050, L509.1000 ####[facility] [address] [place], [address] Urea nitrogen [Mass/Vol] 15 mg/dL Normal 4-19 [facility] Comment on above: Performed By: #### L 3300.0960, L501.9520, L506.1001, L100.0100, L500.4050, L509.1000 ####[facility] [address] [place], [address] ENTERIC PATHOGEN PANEL STOOL on 09-08-2024 EP PANEL CAMPYLOBACTER Not Detected Norovirus Not Detected Rotavirus Not Detected Salmonella Not Detected Shiga Toxin Not Detected Shigella sp. Not Detected VIBRIO Not Detected Yersinia Not Detected Normal [facility] Comment on above: Performed By: #### M 100.637, M100.6796 ####[facility] [address] [place], [address] Electrocardiogram reportOrde red By: Alli Brito on 09-08-2024 EKG study [facility] Work Phone: [phone] 09-08-2024 Ionized Calcium 1.08 mmol/L Low 1.09-1.30 [facility] Comment on above: Performed By: #### L 501.2276 ####[facility] [address] [place], [address] Ionized Calcium 1.25 mmol/L Normal 1.09-1.30 [facility] Comment on above: Performed By: #### L 501.2276 ####[facility] [address] [place], [address] L509.7001on 09-08-2024 Procalcitonin 0.14 ng/mL High <=0.10 [facility] Comment on above: Result Comment: Inte rpretation:<0.10-0.25 ng/mL: Antibiotic therapy discouraged. Bacterialinfection unlikely.0.25-0.50 ng/mL: Antibiotic therapy encouraged. Bacterialinfection possible.>0.50 ng/mL: Antibiotic therapy strongly encouraged.Suggestive of presence of bacterial infection.PCT should always be interpreted in the clinical context ofthe patient. Therefore, clinicians should use the PCTresults in conjunction with other laboratory findings andclinical signs of the patient. Performed By: #### L 509.7001 ####[facility] [address] [place], [place], [address] No Panel InformationOrdered By: Rosaura Rosa Maria on 09-08-2024 23 U/L <32 [facility] PTH intactOrdered By: Rosa Maria on 09-08-2024 PTH intact 28 pg/mL [facility] PTHINon 09-08-2024 PTH 28 pg/mL Normal [facility] Comment on above: Performed By: #### L 3300.0960, L501.9520, L506.1001, L100.0100, L500.4050, L509.1000 ####[facility] [address] [place], [place], [address] Serum globulin measurementOr dered By: Rosaura Crane on 09-08-2024 Globulin (S) [Mass/Vol] 2.7 g/dL 2.2-4.2 [facility] Serum globulin measurement 2.7 g/dL 2.2-4.2 [facility] Serum or plasma alanine hamilton otransferase (ALT) measurementOrdered By: Rosaura Crane on 09-08-2024 ALT [Catalytic activity/Vol] 14 U/L <35 [facility] Serum or plasma albumin xiomara urement (mass/volume)Ordered By: Rosaura Crane on 09-08-2024 Albumin [Mass/Vol] 3.1 g/dL Low 3.5-5.0 [facility] Serum or plasma albumin/glob ulin mass ratioOrdered By: Rosaura Crane on 09-08-2024 Albumin/Globulin [Mass ratio] 1.2 {ratio} 0.9-2.4 [facility] Serum or plasma alkaline sabiha sphatase measurementOrdered By: Rosaura Crane on 09-08-2024 ALP [Catalytic activity/Vol] 105 U/L High 35-104 [facility] Serum or plasma calcitriol m easurement (mass/volume)Ordered By: Rosaura Crane on 09-08-2024 1,25-dihydroxyvitamin D3 [Mass/Vol] 29.9 pg/mL 24.8-81.5 [facility] TSH DL <= 0.005 mIU/L QnOrde red By: Rosaura Crane on 09-08-2024 TSH Qn 2.460 uIU/mL 0.300-4.20 0 [facility] Serum or plasma thyroid stimulating hormone (TSH) measurement by high sensitivity met 2.460 uIU/mL 0.300-4.20 0 [facility] Thyroid Stim Hormone (TSH)on 09-08-2024 TSH 2.460 uIU/mL Normal 0.300-4.20 0 [facility] Comment on above: Performed By: #### L 3300.0960, L501.9520, L506.1001, L100.0100, L500.4050, L509.1000 ####[facility] [address] [place], [place], [address] Total proteinOrdered By: Castro Crane on 09-08-2024 Protein [Mass/Vol] 5.9 g/dL 5.9-8.4 [facility] Total protein 5.9 g/dL 5.9-8.4 [facility] Vitamin D, 25-hydroxyOrdered By: Rosaura Crane on 09-08-2024 Vitamin D, 25-hydroxy 14.3 ng/mL Low 30-100 [facility] Vitamin D,25 Hydroxyon 09-08 Vitamin D 25-OH 14.3 ng/mL Low 30-100 [facility] Comment on above: Result Comment: Charissa min D StatusDeficiency: <20 ng/mL (50nmol/L)Insufficiency: 20-30 ng/mL (50-75 nmol/L)Sufficiency: 30-100 ng/mL (75-250 nmol/L)Toxicity: >100 ng/mL (>250 nmol/L) Performed By: #### L 3300.0960, L501.9520, L506.1001, L100.0100, L500.4050, L509.1000 ####[facility] [address] [place], [address] 12 Lead EKGon 09-07-2024 12 Lead EKG Normal [facility] ALP [Catalytic activity/Vol] Ordered By: Davis Ibarra on 09-07-2024 Serum or plasma alkaline phosphatase measurement 85 U/L 35-104 [facility] ALT [Catalytic activity/Vol] Ordered By: Davis Ibarra on 09-07-2024 Serum or plasma alanine aminotransferase (ALT) measurement 11 U/L <35 [facility] Abdomen/Pelvis W IV Cont ONL Yon 09-07-2024 Abdomen/Pelvis W IV Cont ONLY Normal [facility] Absolute neutrophil countOrd ered By: Davis Ibarra on 09-07-2024 Absolute neutrophil count 6.6 X10^3/uL 2.0-7.7 [facility] Albumin [Mass/Vol]Ordered By : Davis Ibarra on 09-07-2024 Serum or plasma albumin measurement (mass/volume) 2.6 g/dL Low 3.5-5.0 [facility] Albumin/Globulin [Mass ratio ]Ordered By: Davis bIarra on 09-07-2024 Serum or plasma albumin/globulin mass ratio 1.3 RATIO 0.9-2.4 [facility] Anion gap [Moles/Vol]Ordered By: Davis Ibarra on 09-07-2024 Anion gap in Serum or Plasma 9 5-15 [facility] BUN/creatinine ratioOrdered By: Davis Ibarra on 09-07-2024 BUN/creatinine ratio 18.5 RATIO 10-20 [facility] Basophil percentageOrdered B y: Davis Ibarra on 09-07-2024 Basophil percentage 0.5 % 0-1 [facility] Bilirubin, totalOrdered By: Davis Ibarra on 09-07-2024 Bilirubin, total 0.40 mg/dL 0.00-1.30 [facility] CBC W/Diff, Automatedon Absolute Lymph 1.22 X10 3/uL Normal 0.83-4.51 [facility] Comment on above: Order Comment: RED W. PREVIOUS SPECIMEN REJECTED DUE TOPOSSIBLE CONTAMINATION. 09/07/241742 Eileen Mauricio. Performed By: #### L 501.2450, L100.0100, L500.4050 ####[facility] [address] [place], [address] Absolute Neut 6.6 X10 3/uL Normal 2.0-7.7 [facility] Comment on above: Order Comment: RED W. PREVIOUS SPECIMEN REJECTED DUE TOPOSSIBLE CONTAMINATION. 09/07/241742 Eileen Mauricio. Performed By: #### L 501.2450, L100.0100, L500.4050 ####[facility] [address] [place], [address] Basophils/100 WBC (Bld) 0.5 % Normal 0-1 [facility] Comment on above: Order Comment: RED W. PREVIOUS SPECIMEN REJECTED DUE TOPOSSIBLE CONTAMINATION. 09/07/241742 Eileen Mauricio. Performed By: #### L 501.2450, L100.0100, L500.4050 ####[facility] [address] [place], [address] Eosinophils/100 WBC (Bld) 1.7 % Normal 0-5 [facility] Comment on above: Order Comment: REDRA W. PREVIOUS SPECIMEN REJECTED DUE TOPOSSIBLE CONTAMINATION. 09/07/241742 Eileen Mauricio. Performed By: #### L 501.2450, L100.0100, L500.4050 ####[facility] [address] [place], [address] Erythrocyte distribution width (RBC) [Ratio] 13.3 % Normal 11.6-14.6 [facility] Comment on above: Order Comment: REDRA W. PREVIOUS SPECIMEN REJECTED DUE TOPOSSIBLE CONTAMINATION. 09/07/241742 Eileen Mauricio. Performed By: #### L 501.2450, L100.0100, L500.4050 ####[facility] [address] [place], [address] Hematocrit (Bld) [Volume fraction] 31.8 % Low 37-47 [facility] Comment on above: Order Comment: REDRA W. PREVIOUS SPECIMEN REJECTED DUE TOPOSSIBLE CONTAMINATION. 09/07/241742 Eileen Mauricio. Performed By: #### L 501.2450, L100.0100, L500.4050 ####[facility] [address] [place], [address] Hemoglobin (Bld) [Mass/Vol] 10.8 g/dL Low 12.0-15.0 [facility] Comment on above: Order Comment: REDRA W. PREVIOUS SPECIMEN REJECTED DUE TOPOSSIBLE CONTAMINATION. 09/07/241742 Eileen Mauricio. Performed By: #### L 501.2450, L100.0100, L500.4050 ####[facility] [address] [place], [address] IG% 0.500 Normal 0.0-0.9 [facility] Comment on above: Order Comment: REDRA W. PREVIOUS SPECIMEN REJECTED DUE TOPOSSIBLE CONTAMINATION. 09/07/241742 Eileen Mauricio. Result Comment: IG% - Immature Granulocytes (promyelocytes, myelocytes andmetamyelocytes) > 1% indicates that a LEFT SHIFT is Present. Performed By: #### L 501.2450, L100.0100, L500.4050 ####[facility] [address] [place], [address] Lymphocytes/100 WBC (Bld) 14.5 % Low 19-41 [facility] Comment on above: Order Comment: REDRA W. PREVIOUS SPECIMEN REJECTED DUE TOPOSSIBLE CONTAMINATION. 09/07/241742 Eileen Mauricio. Performed By: #### L 501.2450, L100.0100, L500.4050 ####[facility] [address] [place], [address] MCH (RBC) [Entitic mass] 28.3 pg Normal 27.0-32.0 [facility] Comment on above: Order Comment: REDRA W. PREVIOUS SPECIMEN REJECTED DUE TOPOSSIBLE CONTAMINATION. 09/07/241742 Eileen Mauricio. Performed By: #### L 501.2450, L100.0100, L500.4050 ####[facility] [address] [place], [address] MCHC (RBC) [Mass/Vol] 34.0 g/dL Normal 32-36 [facility] Comment on above: Order Comment: REDRA W. PREVIOUS SPECIMEN REJECTED DUE TOPOSSIBLE CONTAMINATION. 09/07/241742 Eileen Mauricio. Performed By: #### L 501.2450, L100.0100, L500.4050 ####[facility] [address] [place], [address] MCV (RBC) [Entitic vol] 83.2 fL Normal 81-99 [facility] Comment on above: Order Comment: REDRA W. PREVIOUS SPECIMEN REJECTED DUE TOPOSSIBLE CONTAMINATION. 09/07/241742 Eileen Mauricio. Performed By: #### L 501.2450, L100.0100, L500.4050 ####[facility] [address] [place], [address] Monocytes/100 WBC (Bld) 5.0 % Normal 0-10 [facility] Comment on above: Order Comment: REDRA W. PREVIOUS SPECIMEN REJECTED DUE TOPOSSIBLE CONTAMINATION. 09/07/241742 Eileen Mauricio. Performed By: #### L 501.2450, L100.0100, L500.4050 ####[facility] [address] [place], [address] Neutrophils/100 WBC (Bld) 77.8 % High 47-70 [facility] Comment on above: Order Comment: REDRA W. PREVIOUS SPECIMEN REJECTED DUE TOPOSSIBLE CONTAMINATION. 09/07/241742 Eileen Mauricio. Performed By: #### L 501.2450, L100.0100, L500.4050 ####[facility] [address] [place], [address] Nucleated RBC (Bld) [#/Vol] 0 10*3/uL Normal 0-5 [facility] Comment on above: Order Comment: REDRA W. PREVIOUS SPECIMEN REJECTED DUE TOPOSSIBLE CONTAMINATION. 09/07/241742 Eileen Mauricio. Performed By: #### L 501.2450, L100.0100, L500.4050 ####[facility] [address] [place], [address] Platelet mean volume (Bld) [Entitic vol] 9.3 fL Normal 6.2-12.0 [facility] Comment on above: Order Comment: REDRA W. PREVIOUS SPECIMEN REJECTED DUE TOPOSSIBLE CONTAMINATION. 09/07/241742 Eileen Mauricio. Performed By: #### L 501.2450, L100.0100, L500.4050 ####[facility] [address] [place], [address] Platelets (Bld) [#/Vol] 235 10*3/uL Normal 150-450 [facility] Comment on above: Order Comment: REDRA W. PREVIOUS SPECIMEN REJECTED DUE TOPOSSIBLE CONTAMINATION. 09/07/241742 Eileen Mauricio. Performed By: #### L 501.2450, L100.0100, L500.4050 ####[facility] [address] [place], [address] RBC (Bld) [#/Vol] 3.82 10*6/uL Low 4.2-5.4 [facility] Comment on above: Order Comment: REDRA W. PREVIOUS SPECIMEN REJECTED DUE TOPOSSIBLE CONTAMINATION. 09/07/241742 Eileen Mauricio. Performed By: #### L 501.2450, L100.0100, L500.4050 ####[facility] [address] [place], [address] RDW SD 40.4 fl Normal 35.1-43.9 [facility] Comment on above: Order Comment: REDRA W. PREVIOUS SPECIMEN REJECTED DUE TOPOSSIBLE CONTAMINATION. 09/07/241742 Eileen Mauricio. Performed By: #### L 501.2450, L100.0100, L500.4050 ####[facility] [address] [place], [address] WBC (Bld) [#/Vol] 8.4 10*3/uL Normal 4.4-11.0 [facility] Comment on above: Order Comment: RED W. PREVIOUS SPECIMEN REJECTED DUE TOPOSSIBLE CONTAMINATION. 09/07/241742 Eileen Mauricio. Performed By: #### L 501.2450, L100.0100, L500.4050 ####[facility] [address] [place], [address] Hemoglobin (Bld) [Mass/Vol] 4.8 g/dL Invalid Interpretation Code 12.0-15.0 [facility] Comment on above: Result Comment: This specimen has been REJECTED due to Laboratory criteria:Contaminated/Leaked.PEPPER has been notified of need of recollection.09/07/241741 Eileen LozanoCRITICAL VALUE CALLED TO César BUTTERFIELDUVKOIIBKP48/06/25 1717 Li Coronel.RESULTS READ BACK BY SAME. Performed By: #### L 100.0100, L501.2450, L500.4050 ####[facility] [address] [place], [address] Absolute Lymph 0.64 X10 3/uL Low 0.83-4.51 [facility] Comment on above: Result Comment: This specimen has been REJECTED due to Laboratory criteria:Contaminated/Leaked.EVANGELIST has been notified of need of recollection.09/07/241741 Eileen Mauricio Performed By: #### L 100.0100, L501.2450, L500.4050 ####[facility] [address] [place], [address] Absolute Neut 3.3 X10 3/uL Normal 2.0-7.7 [facility] Comment on above: Result Comment: This specimen has been REJECTED due to Laboratory criteria:Contaminated/Leaked.EVANGELIST has been notified of need of recollection.09/07/241741 Eileen Mauricio Performed By: #### L 100.0100, L501.2450, L500.4050 ####[facility] [address] [place], [address] BASO# 0.00 X10 3/uL Normal [facility] Comment on above: Result Comment: This specimen has been REJECTED due to Laboratory criteria:Contaminated/Leaked.EVANGELIST has been notified of need of recollection.09/07/241741 Eileen Mauricio Performed By: #### L 100.0100, L501.2450, L500.4050 ####[facility] [address] [place], [address] Basophils/100 WBC (Bld) 0.0 % Normal 0-1 [facility] Comment on above: Result Comment: This specimen has been REJECTED due to Laboratory criteria:Contaminated/Leaked.EVANGELIST has been notified of need of recollection.09/07/241741 Eileen Mauricio Performed By: #### L 100.0100, L501.2450, L500.4050 ####[facility] [address] [place], [address] EOS# 0.05 X10 3/uL Normal [facility] Comment on above: Result Comment: This specimen has been REJECTED due to Laboratory criteria:Contaminated/Leaked.EVANGELIST has been notified of need of recollection.09/07/241741 Eileen Mauricio Performed By: #### L 100.0100, L501.2450, L500.4050 ####[facility] [address] [place], [address] Eosinophils/100 WBC (Bld) 1.2 % Normal 0-5 [facility] Comment on above: Result Comment: This specimen has been REJECTED due to Laboratory criteria:Contaminated/Leaked.EVANGELIST has been notified of need of recollection.09/07/241741 Eileen Mauricio Performed By: #### L 100.0100, L501.2450, L500.4050 ####[facility] [address] [place], [address] Erythrocyte distribution width (RBC) [Ratio] 13.4 % Normal 11.6-14.6 [facility] Comment on above: Result Comment: This specimen has been REJECTED due to Laboratory criteria:Contaminated/Leaked.EVANGELIST has been notified of need of recollection.09/07/241741 Eileen Mauricio Performed By: #### L 100.0100, L501.2450, L500.4050 ####[facility] [address] [place], [address] Hematocrit (Bld) [Volume fraction] 14.7 % Low 37-47 [facility] Comment on above: Result Comment: This specimen has been REJECTED due to Laboratory criteria:Contaminated/Leaked.EVANGELIST has been notified of need of recollection.09/07/241741 Eileen Mauricio Performed By: #### L 100.0100, L501.2450, L500.4050 ####[facility] [address] [place], [address] IG# 0.030 X10 3/uL High 0.0-0.0 [facility] Comment on above: Result Comment: This specimen has been REJECTED due to Laboratory criteria:Contaminated/Leaked.EVANGELIST has been notified of need of recollection.09/07/241741 Eileen Mauricio Performed By: #### L 100.0100, L501.2450, L500.4050 ####[facility] [address] [place], [address] IG% 0.700 Normal 0.0-0.9 [facility] Comment on above: Result Comment: This specimen has been REJECTED due to Laboratory criteria:Contaminated/Leaked.EVANGELIST has been notified of need of recollection.09/07/241741 Eileen LozanoIG% - Immature Granulocytes (promyelocytes, myelocytes andmetamyelocytes) > 1% indicates that a LEFT SHIFT is Present. Performed By: #### L 100.0100, L501.2450, L500.4050 ####[facility] [address] [place], [address] LYMPH# 0.64 X10 3/ul Low 0.83-4.51 [facility] Comment on above: Result Comment: This specimen has been REJECTED due to Laboratory criteria:Contaminated/Leaked.EVANGELIST has been notified of need of recollection.09/07/241741 Eileen Mauricio Performed By: #### L 100.0100, L501.2450, L500.4050 ####[facility] [address] [place], [address] Lymphocytes/100 WBC (Bld) 15.2 % Low 19-41 [facility] Comment on above: Result Comment: This specimen has been REJECTED due to Laboratory criteria:Contaminated/Leaked.EVANGELIST has been notified of need of recollection.09/07/241741 Eileen Mauricio Performed By: #### L 100.0100, L501.2450, L500.4050 ####[facility] [address] [place], [address] MCH (RBC) [Entitic mass] 28.4 pg Normal 27.0-32.0 [facility] Comment on above: Result Comment: This specimen has been REJECTED due to Laboratory criteria:Contaminated/Leaked.EVANGELIST has been notified of need of recollection.09/07/241741 Eileen Mauricio Performed By: #### L 100.0100, L501.2450, L500.4050 ####[facility] [address] [place], [address] MCHC (RBC) [Mass/Vol] 32.7 g/dL Normal 32-36 [facility] Comment on above: Result Comment: This specimen has been REJECTED due to Laboratory criteria:Contaminated/Leaked.EVANGELIST has been notified of need of recollection.09/07/241741 Eileen Mauricio Performed By: #### L 100.0100, L501.2450, L500.4050 ####[facility] [address], [address] MCV (RBC) [Entitic vol] 87.0 fL Normal 81-99 [facility] Comment on above: Result Comment: This specimen has been REJECTED due to Laboratory criteria:Contaminated/Leaked.EVANGELIST has been notified of need of recollection.09/07/241741 Eileen Mauricio Performed By: #### L 100.0100, L501.2450, L500.4050 ####[facility] [address] [place], [address] MONO # 0.24 X10 3/uL Normal [facility] Comment on above: Result Comment: This specimen has been REJECTED due to Laboratory criteria:Contaminated/Leaked.EVANGELIST has been notified of need of recollection.09/07/241741 Eileen Mauricio Performed By: #### L 100.0100, L501.2450, L500.4050 ####[facility] [address] [place], [address] Monocytes/100 WBC (Bld) 5.7 % Normal 0-10 [facility] Comment on above: Result Comment: This specimen has been REJECTED due to Laboratory criteria:Contaminated/Leaked.PEPPER has been notified of need of recollection.09/07/241741 Eileen Mauricio Performed By: #### L 100.0100, L501.2450, L500.4050 ####[facility] [address] [place], [address] Neutrophil # 3.26 X10 3/uL Normal 2.7-7.7 [facility] Comment on above: Result Comment: This specimen has been REJECTED due to Laboratory criteria:Contaminated/Leaked.EVANGELIST has been notified of need of recollection.09/07/241741 Eileen Mauricio Performed By: #### L 100.0100, L501.2450, L500.4050 ####[facility] [address] [place], [address] Neutrophils/100 WBC (Bld) 77.2 % High 47-70 [facility] Comment on above: Result Comment: This specimen has been REJECTED due to Laboratory criteria:Contaminated/Leaked.EVANGELIST has been notified of need of recollection.09/07/241741 Eileen Mauricio Performed By: #### L 100.0100, L501.2450, L500.4050 ####[facility] [address] [place], [address] Nucleated RBC (Bld) [#/Vol] 0 10*3/uL Normal 0-5 [facility] Comment on above: Result Comment: This specimen has been REJECTED due to Laboratory criteria:Contaminated/Leaked.EVANGELIST has been notified of need of recollection.09/07/241741 Eileen Mauricio Performed By: #### L 100.0100, L501.2450, L500.4050 ####[facility] [address] [place], [address] Platelet mean volume (Bld) [Entitic vol] 8.8 fL Normal 6.2-12.0 [facility] Comment on above: Result Comment: This specimen has been REJECTED due to Laboratory criteria:Contaminated/Leaked.EVANGELIST has been notified of need of recollection.09/07/241741 Eileen Mauricio Performed By: #### L 100.0100, L501.2450, L500.4050 ####[facility] [address] [place], [address] Platelets (Bld) [#/Vol] 102 10*3/uL Low 150-450 [facility] Comment on above: Result Comment: This specimen has been REJECTED due to Laboratory criteria:Contaminated/Leaked.EVANGELIST has been notified of need of recollection.09/07/241741 Eileen Mauricio Performed By: #### L 100.0100, L501.2450, L500.4050 ####[facility] [address] [place], [address] POSITIVE COUNT YES Abnormal [facility] Comment on above: Result Comment: This specimen has been REJECTED due to Laboratory criteria:Contaminated/Leaked.EVANGELIST has been notified of need of recollection.09/07/241741 Eileen Mauricio Performed By: #### L 100.0100, L501.2450, L500.4050 ####[facility] [address] [place], [address] RBC (Bld) [#/Vol] 1.69 10*6/uL Low 4.2-5.4 [facility] Comment on above: Result Comment: This specimen has been REJECTED due to Laboratory criteria:Contaminated/Leaked.EVANGELIST has been notified of need of recollection.09/07/241741 Eileen Mauricio Performed By: #### L 100.0100, L501.2450, L500.4050 ####[facility] [address] [place], [address] RDW SD 42.5 fl Normal 35.1-43.9 [facility] Comment on above: Result Comment: This specimen has been REJECTED due to Laboratory criteria:Contaminated/Leaked.EVANGELIST has been notified of need of recollection.09/07/241741 Eileen Mauricio Performed By: #### L 100.0100, L501.2450, L500.4050 ####[facility] [address] [place], [address] WBC (Bld) [#/Vol] 4.2 10*3/uL Low 4.4-11.0 [facility] Comment on above: Result Comment: This specimen has been REJECTED due to Laboratory criteria:Contaminated/Leaked.EVANGELIST has been notified of need of recollection.09/07/241741 Ieleen Mauricio Performed By: #### L 100.0100, L501.2450, L500.4050 ####[facility] [address] [place], [address] Calcium [Mass/Vol]Ordered By : Davis Ibarra on 09-07-2024 Serum or plasma calcium measurement (mass/volume) 6.5 mg/dL Low 7.6-11.0 [facility] Carbon dioxide, total [Moles /volume] in Central venous bloodOrdered By: Davis Ibarra on 09-07-2024 Carbon dioxide, total [Moles/volume] in Central venous blood 18.5 mmol/L Low 21.0-32.0 [facility] Chloride assayOrdered By: Matt Ibarra on 09-07-2024 Chloride assay 108 mmol/L 98-108 [facility] Comprehensive Metabolic Prof ilon 09-07-2024 Potassium [Moles/Vol] 2.5 mmol/L Invalid Interpretation Code 3.3-5.1 [facility] Comment on above: Order Comment: REUBEN [...] Performed By: #### L 501.2450, L100.0100, L500.4050 ####[facility] [address] [place], [address] ALB Normal 3.5-5.0 [facility] Comment on above: Result Comment: This specimen has been REJECTED due to Laboratory criteria:Contaminated/Leaked.EVANGELIST has been notified of need of recollection.09/07/241741 Eileen Mauricio Performed By: #### L 100.0100, L501.2450, L500.4050 ####[facility] [address] [place], [address] ALK PHOS Normal 35-104 [facility] Comment on above: Result Comment: This specimen has been REJECTED due to Laboratory criteria:Contaminated/Leaked.EVANGLEIST has been notified of need of recollection.09/07/241741 Eileen Mauricio Performed By: #### L 100.0100, L501.2450, L500.4050 ####[facility] [address] [place], [address] ALT Normal <=34 [facility] Comment on above: Result Comment: This specimen has been REJECTED due to Laboratory criteria:Contaminated/Leaked.EVANGELIST has been notified of need of recollection.09/07/241741 Eileen Mauricio Performed By: #### L 100.0100, L501.2450, L500.4050 ####[facility] [address] [place], [address] AST Normal <=31 [facility] Comment on above: Result Comment: This specimen has been REJECTED due to Laboratory criteria:Contaminated/Leaked.EVANGELIST has been notified of need of recollection.09/07/241741 Eileen Mauricio Performed By: #### L 100.0100, L501.2450, L500.4050 ####[facility] [address] [place], [address] BUN Normal 4-19 [facility] Comment on above: Result Comment: This specimen has been REJECTED due to Laboratory criteria:Contaminated/Leaked.EVANGELIST has been notified of need of recollection.09/07/241741 Eileen Mauricio Performed By: #### L 100.0100, L501.2450, L500.4050 ####[facility] [address] [place], [address] BUN/CRE Normal 10-20 [facility] Comment on above: Result Comment: This specimen has been REJECTED due to Laboratory criteria:Contaminated/Leaked.EVANGELIST has been notified of need of recollection.09/07/241741 Eileen Mauricio Performed By: #### L 100.0100, L501.2450, L500.4050 ####[facility] [address] [place], [address] Calcium Normal 7.6-11.0 [facility] Comment on above: Result Comment: This specimen has been REJECTED due to Laboratory criteria:Contaminated/Leaked.EVANGELIST has been notified of need of recollection.09/07/241741 Eileen Mauricio Performed By: #### L 100.0100, L501.2450, L500.4050 ####[facility] [address] [place], [address] CL Normal 98-108 [facility] Comment on above: Result Comment: This specimen has been REJECTED due to Laboratory criteria:Contaminated/Leaked.EVANGELIST has been notified of need of recollection.09/07/241741 Eileen Mauricio Performed By: #### L 100.0100, L501.2450, L500.4050 ####[facility] [address] [place], [address] CO2 Normal 21.0-32.0 [facility] Comment on above: Result Comment: This specimen has been REJECTED due to Laboratory criteria:Contaminated/Leaked.EVANGELIST has been notified of need of recollection.09/07/241741 Eileen Mauricio Performed By: #### L 100.0100, L501.2450, L500.4050 ####[facility] [address] [place], [address] CREAT,SERUM Normal 0.70-1.20 [facility] Comment on above: Result Comment: This specimen has been REJECTED due to Laboratory criteria:Contaminated/Leaked.EVANGELIST has been notified of need of recollection.09/07/241741 Eileen Mauricio Performed By: #### L 100.0100, L501.2450, L500.4050 ####[facility] [address] [place], [address] eGFR Normal >60 [facility] Comment on above: Result Comment: This specimen has been REJECTED due to Laboratory criteria:Contaminated/Leaked.EVANGELIST has been notified of need of recollection.09/07/241741 Eileen Mauricio Performed By: #### L 100.0100, L501.2450, L500.4050 ####[facility] [address] [place], [address] GAP Normal 5-15 [facility] Comment on above: Result Comment: This specimen has been REJECTED due to Laboratory criteria:Contaminated/Leaked.EVANGELIST has been notified of need of recollection.09/07/241741 Eileen Mauricio Performed By: #### L 100.0100, L501.2450, L500.4050 ####[facility] [address] [place], [address] GLU Normal 70-99 [facility] Comment on above: Result Comment: This specimen has been REJECTED due to Laboratory criteria:Contaminated/Leaked.EVANGELIST has been notified of need of recollection.09/07/241741 Eileen Mauricio Performed By: #### L 100.0100, L501.2450, L500.4050 ####[facility] [address] [place], [address] Potassium Normal 3.3-5.1 [facility] Comment on above: Result Comment: This specimen has been REJECTED due to Laboratory criteria:Contaminated/Leaked.EVANGELIST has been notified of need of recollection.09/07/241741 Eileen Mauricio Performed By: #### L 100.0100, L501.2450, L500.4050 ####[facility] [address] [place], [address] T BILI Normal 0.00-1.30 [facility] Comment on above: Result Comment: This specimen has been REJECTED due to Laboratory criteria:Contaminated/Leaked.EVANGELIST has been notified of need of recollection.09/07/241741 Eileen Mauricio Performed By: #### L 100.0100, L501.2450, L500.4050 ####[facility] [address] [place], [address] T PROT Normal 5.9-8.4 [facility] Comment on above: Result Comment: This specimen has been REJECTED due to Laboratory criteria:Contaminated/Leaked.EVANGELIST has been notified of need of recollection.09/07/241741 Eileen Mauricio Performed By: #### L 100.0100, L501.2450, L500.4050 ####[facility] [address] [place], [address] Comprehensive Metabolic Profil Normal 133-145 [facility] Comment on above: Result Comment: This specimen has been REJECTED due to Laboratory criteria:Contaminated/Leaked.EVANGELIST has been notified of need of recollection.09/07/241741 Eielen Mauricio Performed By: #### L 100.0100, L501.2450, L500.4050 ####[facility] [address] [place], [address] Creatinine [Mass/Vol]Ordered By: Davis Ibarra on 09-07-2024 Serum creatinine measurement (mass/volume) 0.92 mg/dL 0.70-1.20 [facility] Emergency Department Summary on 09-07-2024 Emergency Department Summary Normal [facility] Eosinophil percentageOrdered By: Davis Ibarra on 09-07-2024 Eosinophil percentage 1.7 % 0-5 [facility] Erythrocyte distribution wid th (RBC) [Ratio]Ordered By: Davis Ibarra on 09-07-2024 Erythrocyte distribution width ratio 13.3 % 11.6-14.6 [facility] Erythrocyte distribution width standard deviation 40.4 fl 35.1-43.9 [facility] Estimation of creatinine sylvain aranceOrdered By: Davis Ibarra on 09-07-2024 Estimation of creatinine clearance 76.05 ml/min 50-250 [facility] GFR/1.73 sq M.predicted estephanie g non-blacks MDRD (S/P/Bld) [Vol rate/Area]Ordered By: Davis Ibarra on 09-07-2024 Glomerular filtration rate (GFR) estimation/1.73 sq m using serum, plasma, or whole b 74 >60 [facility] Glucose [Mass/Vol]Ordered By : Davis Ibarra on 09-07-2024 Serum glucose measurement (mass/volume) 283 mg/dL High 70-99 [facility] H AND P Exam - Hospitaliston 09-07-2024 H&P Exam - Hospitalist Normal [facility] Hematocrit Auto (Bld) [Volum e fraction]Ordered By: Davis Ibarra on 09-07-2024 Automated blood hematocrit (percentage) 31.8 % Low 37-47 [facility] Hemoglobin measurementOrdere d By: Davis Ibarra on 09-07-2024 Hemoglobin measurement 10.8 g/dL Low 12.0-15.0 [facility] Immature granulocytes/100 WB C Auto (Bld)Ordered By: Davis Ibarra on 09-07-2024 Automated immature granulocyte percentage 0.500 % 0.0-0.9 [facility] Lipaseon 09-07-2024 Lipase [Catalytic activity/Vol] 28 U/L Normal 13-75 [facility] Comment on above: Order Comment: FLORIDALMA W. PREVIOUS SPECIMEN REJECTED DUE TOPOSSIBLE CONTAMINATION. 09/07/241742 Eileen Mauricio. Result Comment: Gege edgar note:LIPASE revised reference range effective 22.New Lipase methodology. Expected to produce lower valuesthan the previous assay method.NEW Reference Range: 13 - 75 U/L Performed By: #### L 501.2450, L100.0100, L500.4050 ####[facility] [address] [place], [place], [id number] Lipase [Catalytic activity/Vol] 12 U/L Low -75 [facility] Comment on above: Order Comment: This specimen has been REJECTED due to Laboratory criteria:Contaminated/Leaked.EVANGELIST has been notified of need of recollection.09/07/241741 Eileen Mauricio Result Comment: This specimen has been REJECTED due to Laboratory criteria:Contaminated/Leaked.EVANGELIST has been notified of need of recollection.09/07/241741 Eileen McguirezanoPlease note:LIPASE revised reference range effective 22.New Lipase methodology. Expected to produce lower valuesthan the previous assay method.NEW Reference Range: 13 - 75 U/L Performed By: #### L 100.0100, L501.2450, L500.4050 ####[facility] [address] [place], [address] Lipase measurementOrdered By : Davis Ibarra on 09-07-2024 Lipase measurement 28 U/L 13-75 [facility] Lymphocytes Auto (Unsp spec) [#/Vol]Ordered By: Davis Ibarra on 09-07-2024 Absolute lymphocyte count 1.22 X10^3/uL 0.83-4.51 [facility] Lymphocytes/100 WBC Auto (Un sp spec)Ordered By: Davis Ibarra on 09-07-2024 Automated lymphocyte count as percentage of total leukocytes 14.5 % Low 19-41 [facility] MCV (RBC) [Entitic vol]Order ed By: Davis Ibarra on 09-07-2024 MCV (mean corpuscular volume) determination 83.2 fL 81-99 [facility] Magnesiumon 09-07-2024 Magnesium [Mass/Vol] 1.2 mg/dL Low 1.5-2.2 [facility] Comment on above: Performed By: #### L 501.9234 ####[facility] [address] [place], [place], [address] Magnesium (Unsp spec) [Mass/ Vol]Ordered By: Davis Ibarra on 09-07-2024 Magnesium measurement (mass/volume) 1.2 mg/dL Low 1.5-2.2 [facility] Mean corpuscular hemoglobin (MCH) determinationOrdered By: Davis Ibarra on 09-07-2024 Mean corpuscular hemoglobin (MCH) determination 28.3 pg 27.0-32.0 [facility] Mean corpuscular hemoglobin concentration (MCHC) determinationOrdered By: Davis Ibarra on 09-07-2024 Mean corpuscular hemoglobin concentration (MCHC) determination 34.0 g/dL 32-36 [facility] Mean platelet volume determi nationOrdered By: Davis Ibarra on 09-07-2024 Mean platelet volume determination 9.3 fl 6.2-12.0 [facility] Monocyte percentageOrdered B y: Davis Ibarra on 09-07-2024 Monocyte percentage 5.0 % 0-10 [facility] Neutrophil percentageOrdered By: Davis Ibarra on 09-07-2024 Neutrophil percentage 77.8 % High 47-70 [facility] No Panel InformationOrdered By: Davis Ibarra on 09-07-2024 19 U/L <32 [facility] Nucleated red blood cell per centageOrdered By: Davis Ibarra on 09-07-2024 Nucleated red blood cell percentage 0 % 0-5 [facility] Phosphoruson 09-07-2024 Phosphate [Mass/Vol] 2.5 mg/dL Low 2.7-4.5 [facility] Comment on above: Performed By: #### L 501.6467 ####[facility] [address] [place], [place], [id number] Platelet countOrdered By: Matt Ibarra on 09-07-2024 Platelet count 235 K/mm3 150-450 [facility] Potassium (Unsp spec) [Mass/ Vol]Ordered By: Davis Ibarra on 09-07-2024 Potassium measurement (mass/volume) 2.5 mmol/L Low 3.3-5.1 [facility] Procalcitonin IA [Mass/Vol]O rdered By: Rosaura Crane on 09-07-2024 Procalcitonin [Mass/volume] in Serum or Plasma by Immunoassay 0.14 ng/mL High <0.11 [facility] Procalcitonin [Mass/volume] in Serum or Plasma by ImmunoassayOrdered By: Rosaura Crane on 09-07-2024 Procalcitonin IA [Mass/Vol] 0.14 ng/mL High <0.11 [facility] RBC Auto (Bld) [#/Vol]Ordere d By: Davis Ibarra on 09-07-2024 Automated blood erythrocyte count 3.82 M/mm3 Low 4.2-5.4 [facility] Serum globulin measurementOr dered By: Davis Ibarra on 09-07-2024 Serum globulin measurement 2.1 g/dL Low 2.2-4.2 [facility] Sodium levelOrdered By: Bhupendra Ibarra on 09-07-2024 Sodium level 136 mmol/L 133-145 [facility] Total proteinOrdered By: Latoya Ibarra on 09-07-2024 Total protein 4.7 g/dL Low 5.9-8.4 [facility] Type AND Screenon 09-07-2024 Ab SCREEN GEL Negative Normal [facility] Comment on above: Order Comment: A Performed By: #### B TS ####[facility] [address] [place], [place], [id number] Urea nitrogen [Mass/Vol]Orde red By: Davis Ibarra on 09-07-2024 Serum or plasma urea nitrogen measurement (mass/volume) 17 mg/dL 4-19 [facility] Urinalysis, Completeon 09-07 BACTERIA Normal None Seen [facility] Comment on above: Order Comment: UA CO MPLETED ON LEAN CATCH Result Comment: @COM PLETED ON 09/12 Performed By: #### L 400.0001 ####[facility] [address] [place], [address] BILIRUBIN URINE Normal Negative [facility] Comment on above: Order Comment: UA CO MPLETED ON LEAN CATCH Result Comment: @COM PLETED ON 09/12 Performed By: #### L 400.0001 ####[facility] [address] [place], [address] Clarity (U) Normal Clear [facility] Comment on above: Order Comment: UA CO MPLETED ON LEAN CATCH Result Comment: @COM PLETED ON 09/12 Performed By: #### L 400.0001 ####[facility] [address] [place], [address] Color (U) Normal Yellow [facility] Comment on above: Order Comment: UA CO MPLETED ON LEAN CATCH Result Comment: @COM PLETED ON 09/12 Performed By: #### L 400.0001 ####[facility] [address] [place], [address] EPI,SQUAMOUS Normal 5-10 [facility] Comment on above: Order Comment: UA CO MPLETED ON LEAN CATCH Result Comment: @COM PLETED ON 09/12 Performed By: #### L 400.0001 ####[facility] [address] [place], [address] GLUCOSE, UR Normal Normal [facility] Comment on above: Order Comment: UA CO MPLETED ON LEAN CATCH Result Comment: @COM PLETED ON 09/12 Performed By: #### L 400.0001 ####[facility] [address] [place], [address] KETONE UR Normal Negative [facility] Comment on above: Order Comment: UA CO MPLETED ON LEAN CATCH Result Comment: @COM PLETED ON 09/12 Performed By: #### L 400.0001 ####[facility] [address] [place], [address] LEUK ESTERASE Normal Negative [facility] Comment on above: Order Comment: UA CO MPLETED ON LEAN CATCH Result Comment: @COM PLETED ON 09/12 Performed By: #### L 400.0001 ####[facility] [address] [place], [address] Mucus Ql (Urine sed) Normal [facility] Comment on above: Order Comment: UA CO MPLETED ON LEAN CATCH Result Comment: @COM PLETED ON 09/12 Performed By: #### L 400.0001 ####[facility] [address] [place], [address] Nitrite Ql (U) Normal Negative [facility] Comment on above: Order Comment: UA CO MPLETED ON LEAN CATCH Result Comment: @COM PLETED ON 09/12 Performed By: #### L 400.0001 ####[facility] [address] [place], [address] OCCULT BLOOD-UR Normal Negative [facility] Comment on above: Order Comment: UA CO MPLETED ON LEAN CATCH Result Comment: @COM PLETED ON 09/12 Performed By: #### L 400.0001 ####[facility] [address] [place], [address] pH UR Normal 5.0 - 8.0 [facility] Comment on above: Order Comment: UA CO MPLETED ON LEAN CATCH Result Comment: @COM PLETED ON 09/12 Performed By: #### L 400.0001 ####[facility] [address] [place], [address] PROT DIPSTX Normal Negative [facility] Comment on above: Order Comment: UA CO MPLETED ON 4/11CLEAN CATCH Result Comment: @COM PLETED ON 09/12 Performed By: #### L 400.0001 ####[facility] [address] [place], [address] RBC Normal 0-5 [facility] Comment on above: Order Comment: UA CO MPLETED ON LEAN CATCH Result Comment: @COM PLETED ON 09/12 Performed By: #### L 400.0001 ####[facility] [address] [place], [address] SP.GR. DIPSTX Normal 1.002-1.03 0 [facility] Comment on above: Order Comment: UA CO MPLETED ON LEAN CATCH Result Comment: @COM PLETED ON 09/12 Performed By: #### L 400.0001 ####[facility] [address] [place], [address] UR Preservative Normal [facility] Comment on above: Order Comment: UA CO MPLETED ON LEAN CATCH Result Comment: @COM PLETED ON 09/12 Performed By: #### L 400.0001 ####[facility] [address] [place], [address] UROBILI Normal Normal [facility] Comment on above: Order Comment: UA CO MPLETED ON LEAN CATCH Result Comment: @COM PLETED ON 09/12 Performed By: #### L 400.0001 ####[facility] [address] [place], [address] WBC Normal 0-5 [facility] Comment on above: Order Comment: UA CO MPLETED ON LEAN CATCH Result Comment: @COM PLETED ON 09/12 Performed By: #### L 400.0001 ####[facility] [address] [place], [address] White blood cell (WBC) count Ordered By: Davis Ibarra on 09-07-2024 White blood cell (WBC) count 8.4 K/mm3 4.4-11.0 [facility] ALP [Catalytic activity/Vol] Ordered By: Zack Card on 09-05-2024 Serum or plasma alkaline phosphatase measurement 141 U/L High 35-104 [facility] ALT [Catalytic activity/Vol] Ordered By: Zack Card on 09-05-2024 Serum or plasma alanine aminotransferase (ALT) measurement 22 U/L <35 [facility] Absolute lymphocyte countOrd ered By: Zack Card on 09-05-2024 Lymphocytes Auto (Unsp spec) [#/Vol] 1.39 10*3/uL 0.83-4.51 [facility] Absolute neutrophil countOrd ered By: Zack Card on 09-05-2024 Absolute neutrophil count 7.9 X10^3/uL High 2.0-7.7 [facility] Albumin [Mass/Vol]Ordered By : Zack Card on 09-05-2024 Serum or plasma albumin measurement (mass/volume) 4.2 g/dL 3.5-5.0 [facility] Albumin/Globulin [Mass ratio ]Ordered By: Zack Card on 09-05-2024 Serum or plasma albumin/globulin mass ratio 1.0 RATIO 0.9-2.4 [facility] Anion gap [Moles/Vol]Ordered By: Zack Card on 09-05-2024 Anion gap in Serum or Plasma 15 5-15 [facility] Anion gap in Serum or Plasma Ordered By: Zack Card on 09-05-2024 Anion gap [Moles/Vol] 15 mmol/L 5-15 [facility] Automated lymphocyte count a s percentage of total leukocytesOrdered By: Zack Card on 09-05-2024 Lymphocytes/100 WBC Auto (Unsp spec) 14.1 % Low 19-41 [facility] BUN/creatinine ratioOrdered By: Zack Card on 09-05-2024 Urea nitrogen/Creatinine [Mass ratio] 16.4 mg/mg 10-20 [facility] BUN/creatinine ratio 16.4 RATIO 10-20 [facility] Basophil percentageOrdered B y: Zack Card on 09-05-2024 Basophils/100 WBC (Bld) 0.4 % 0-1 [facility] Basophil percentage 0.4 % 0-1 [facility] Bilirubin, totalOrdered By: Zack Card on 09-05-2024 Bilirubin [Mass/Vol] 0.72 mg/dL 0.00-1.30 [facility] Bilirubin, total 0.72 mg/dL 0.00-1.30 [facility] CBC W/Diff, Automatedon Absolute Lymph 1.39 X10 3/uL Normal 0.83-4.51 [facility] Comment on above: Performed By: #### L 500.4050, L100.0100, L501.2450 ####[facility] [address] [place], [address] Absolute Neut 7.9 X10 3/uL High 2.0-7.7 [facility] Comment on above: Performed By: #### L 500.4050, L100.0100, L501.2450 ####[facility] [address] [place], [address] Basophils/100 WBC (Bld) 0.4 % Normal 0-1 [facility] Comment on above: Performed By: #### L 500.4050, L100.0100, L501.2450 ####[facility] [address] [place], [address] Eosinophils/100 WBC (Bld) 0.2 % Normal 0-5 [facility] Comment on above: Performed By: #### L 500.4050, L100.0100, L501.2450 ####[facility] [address] [place], [address] Erythrocyte distribution width (RBC) [Ratio] 13.3 % Normal 11.6-14.6 [facility] Comment on above: Performed By: #### L 500.4050, L100.0100, L501.2450 ####[facility] [address] [place], [address] Hematocrit (Bld) [Volume fraction] 44.4 % Normal 37-47 [facility] Comment on above: Performed By: #### L 500.4050, L100.0100, L501.2450 ####[facility] [address] [place], [address] Hemoglobin (Bld) [Mass/Vol] 15.1 g/dL High 12.0-15.0 [facility] Comment on above: Performed By: #### L 500.4050, L100.0100, L501.2450 ####[facility] [address] [place], [address] IG% 0.500 Normal 0.0-0.9 [facility] Comment on above: Result Comment: IG% - Immature Granulocytes (promyelocytes, myelocytes andmetamyelocytes) > 1% indicates that a LEFT SHIFT is Present. Performed By: #### L 500.4050, L100.0100, L501.2450 ####[facility] [address] [place], [address] Lymphocytes/100 WBC (Bld) 14.1 % Low 19-41 [facility] Comment on above: Performed By: #### L 500.4050, L100.0100, L501.2450 ####[facility] [address] [place], [address] MCH (RBC) [Entitic mass] 28.1 pg Normal 27.0-32.0 [facility] Comment on above: Performed By: #### L 500.4050, L100.0100, L501.2450 ####[facility] [address] [place], [address] MCHC (RBC) [Mass/Vol] 34.0 g/dL Normal 32-36 [facility] Comment on above: Performed By: #### L 500.4050, L100.0100, L501.2450 ####[facility] [address] [place], [address] MCV (RBC) [Entitic vol] 82.5 fL Normal 81-99 [facility] Comment on above: Performed By: #### L 500.4050, L100.0100, L501.2450 ####[facility] [address] [place], [address] Monocytes/100 WBC (Bld) 5.1 % Normal 0-10 [facility] Comment on above: Performed By: #### L 500.4050, L100.0100, L501.2450 ####[facility] [address] [place], [address] Neutrophils/100 WBC (Bld) 79.7 % High 47-70 [facility] Comment on above: Performed By: #### L 500.4050, L100.0100, L501.2450 ####[facility] [address] [place], [address] Nucleated RBC (Bld) [#/Vol] 0 10*3/uL Normal 0-5 [facility] Comment on above: Performed By: #### L 500.4050, L100.0100, L501.2450 ####[facility] [address] [place], [address] Platelet mean volume (Bld) [Entitic vol] 8.7 fL Normal 6.2-12.0 [facility] Comment on above: Performed By: #### L 500.4050, L100.0100, L501.2450 ####[facility] [address] [place], [address] Platelets (Bld) [#/Vol] 314 10*3/uL Normal 150-450 [facility] Comment on above: Performed By: #### L 500.4050, L100.0100, L501.2450 ####[facility] [address] [place], [address] RBC (Bld) [#/Vol] 5.38 10*6/uL Normal 4.2-5.4 [facility] Comment on above: Performed By: #### L 500.4050, L100.0100, L501.2450 ####[facility] [address] [place], [address] RDW SD 39.7 fl Normal 35.1-43.9 [facility] Comment on above: Performed By: #### L 500.4050, L100.0100, L501.2450 ####[facility] [address] [place], [address] WBC (Bld) [#/Vol] 9.9 10*3/uL Normal 4.4-11.0 [facility] Comment on above: Performed By: #### L 500.4050, L100.0100, L501.2450 ####[facility] [address] [place], [address] Calcium [Mass/Vol]Ordered By : Zack Card on 09-05-2024 Serum or plasma calcium measurement (mass/volume) 10.0 mg/dL 7.6-11.0 [facility] Carbon dioxide, total [Moles /volume] in Central venous bloodOrdered By: Zack Card on 09-05-2024 CO2 [Moles/Vol] 22.0 mmol/L 21.0-32.0 [facility] Carbon dioxide, total [Moles/volume] in Central venous blood 22.0 mmol/L 21.0-32.0 [facility] Chloride assayOrdered By: Butch Card on 09-05-2024 Chloride [Moles/Vol] 95 mmol/L Low 98-108 [facility] Chloride assay 95 mmol/L Low 98-108 [facility] Comprehensive Metabolic Prof ilon 09-05-2024 Albumin [Mass/Vol] 4.2 g/dL Normal 3.5-5.0 [facility] Comment on above: Performed By: #### L 500.4050, L100.0100, L501.2450 ####[facility] [address] [place], [address] Albumin/Globulin [Mass ratio] 1.0 {ratio} Normal 0.9-2.4 [facility] Comment on above: Performed By: #### L 500.4050, L100.0100, L501.2450 ####[facility] [address] [place], [address] ALK PHOS 141 U/L High 35-104 [facility] Comment on above: Performed By: #### L 500.4050, L100.0100, L501.2450 ####[facility] [address] [place], [address] ALT [Catalytic activity/Vol] 22 U/L Normal <=34 [facility] Comment on above: Performed By: #### L 500.4050, L100.0100, L501.2450 ####[facility] [address] [place], [address] AST [Catalytic activity/Vol] 33 U/L High <=31 [facility] Comment on above: Result Comment: Hemo lysis present, Results??could be affected.?? Performed By: #### L 500.4050, L100.0100, L501.2450 ####[facility] [address] [place], [address] Bilirubin [Mass/Vol] 0.72 mg/dL Normal 0.00-1.30 [facility] Comment on above: Performed By: #### L 500.4050, L100.0100, L501.2450 ####[facility] [address] [place], [address] BUN/CRE 16.4 RATIO Normal 10-20 [facility] Comment on above: Performed By: #### L 500.4050, L100.0100, L501.2450 ####[facility] [address] [place], [address] Calcium [Mass/Vol] 10.0 mg/dL Normal 7.6-11.0 [facility] Comment on above: Performed By: #### L 500.4050, L100.0100, L501.2450 ####[facility] [address] [place], [address] Chloride [Moles/Vol] 95 mmol/L Low 98-108 [facility] Comment on above: Performed By: #### L 500.4050, L100.0100, L501.2450 ####[facility] [address] [place], [address] CO2 [Moles/Vol] 22.0 mmol/L Normal 21.0-32.0 [facility] Comment on above: Performed By: #### L 500.4050, L100.0100, L501.2450 ####[facility] [address] [place], [address] Creatinine [Mass/Vol] 0.84 mg/dL Normal 0.70-1.20 [facility] Comment on above: Performed By: #### L 500.4050, L100.0100, L501.2450 ####[facility] [address] [place], [address] ECRCL 83.78 ml/min Normal 50-250 [facility] Comment on above: Performed By: #### L 500.4050, L100.0100, L501.2450 ####[facility] [address] [place], [address] GAP 15 Normal 5-15 [facility] Comment on above: Performed By: #### L 500.4050, L100.0100, L501.2450 ####[facility] [address] [place], [address] GFR/1.73 sq M.predicted among non-blacks MDRD (S/P/Bld) [Vol rate/Area] 83 mL/min/{1.73_m2} Normal >60 [facility] Comment on above: Result Comment: mL/m in/1.73m2 CKD-EPI Creatinine Equation (2020) Performed By: #### L 500.4050, L100.0100, L501.2450 ####[facility] [address] [place], [address] Globulin (S) [Mass/Vol] 4.0 g/dL Normal 2.2-4.2 [facility] Comment on above: Performed By: #### L 500.4050, L100.0100, L501.2450 ####[facility] [address] [place], [address] Glucose [Mass/Vol] 382 mg/dL High 70-99 [facility] Comment on above: Performed By: #### L 500.4050, L100.0100, L501.2450 ####[facility] [address] [place], [address] Potassium [Moles/Vol] 3.6 mmol/L Normal 3.3-5.1 [facility] Comment on above: Result Comment: Hemo lysis present, Results??could be affected.?? Performed By: #### L 500.4050, L100.0100, L501.2450 ####[facility] [address] [place], [address] Sodium [Moles/Vol] 132 mmol/L Low 133-145 [facility] Comment on above: Performed By: #### L 500.4050, L100.0100, L501.2450 ####[facility] [address] [place], [address] T PROT 8.2 g/dL Normal 5.9-8.4 [facility] Comment on above: Performed By: #### L 500.4050, L100.0100, L501.2450 ####[facility] [address] [place], [address] Urea nitrogen [Mass/Vol] 14 mg/dL Normal 4-19 [facility] Comment on above: Performed By: #### L 500.4050, L100.0100, L501.2450 ####[facility] [address] [place], [address] Creatinine [Mass/Vol]Ordered By: Zack Card on 09-05-2024 Serum creatinine measurement (mass/volume) 0.84 mg/dL 0.70-1.20 [facility] Emergency Department Summary on 09-05-2024 Emergency Department Summary Normal [facility] Eosinophil percentageOrdered By: Zack Card on 09-05-2024 Eosinophils/100 WBC (Bld) 0.2 % 0-5 [facility] Eosinophil percentage 0.2 % 0-5 [facility] Erythrocyte distribution wid th (RBC) [Ratio]Ordered By: Zack Card on 09-05-2024 Erythrocyte distribution width ratio 13.3 % 11.6-14.6 [facility] Erythrocyte distribution width standard deviation 39.7 fl 35.1-43.9 [facility] Erythrocyte distribution wid th ratioOrdered By: Zack Card on 09-05-2024 Erythrocyte distribution width (RBC) [Ratio] 13.3 % 11.6-14.6 [facility] Erythrocyte distribution wid th standard deviationOrdered By: Zack Card on 09-05-2024 Erythrocyte distribution width (RBC) [Ratio] 39.7 fl 35.1-43.9 [facility] Estimation of creatinine sylvain aranceOrdered By: Zack Card on 09-05-2024 Estimation of creatinine clearance 83.78 ml/min 50-250 [facility] GFR/1.73 sq M.predicted estephanie g non-blacks MDRD (S/P/Bld) [Vol rate/Area]Ordered By: Zack Card on 09-05-2024 Glomerular filtration rate (GFR) estimation/1.73 sq m using serum, plasma, or whole b 83 >60 [facility] Glomerular filtration rate ( GFR) estimation/1.73 sq m using serum, plasma, or whole bOrdered By: Zack Card on 09-05-2024 GFR/1.73 sq M.predicted among non-blacks MDRD (S/P/Bld) [Vol rate/Area] 83 mL/min/{1.73_m2} >60 [facility] Glucose [Mass/Vol]Ordered By : Zcak Card on 09-05-2024 Serum glucose measurement (mass/volume) 382 mg/dL High 70-99 [facility] Hematocrit Auto (Bld) [Volum e fraction]Ordered By: Zack Card on 09-05-2024 Hematocrit (Bld) [Volume fraction] 44.4 % 37-47 [facility] Automated blood hematocrit (percentage) 44.4 % 37-47 [facility] Hemoglobin measurementOrdere d By: Zack Card on 09-05-2024 Hemoglobin (Bld) [Mass/Vol] 15.1 g/dL High 12.0-15.0 [facility] Hemoglobin measurement 15.1 g/dL High 12.0-15.0 [facility] Immature granulocytes/100 WB C Auto (Bld)Ordered By: Zack Card on 09-05-2024 Immature granulocytes/100 WBC (Bld) 0.500 % 0.0-0.9 [facility] Automated immature granulocyte percentage 0.500 % 0.0-0.9 [facility] Lipaseon 09-05-2024 Lipase [Catalytic activity/Vol] 33 U/L Normal 13-75 [facility] Comment on above: Result Comment: Gege edgar note:LIPASE revised reference range effective 22.New Lipase methodology. Expected to produce lower valuesthan the previous assay method.NEW Reference Range: 13 - 75 U/L Performed By: #### L 500.4050, L100.0100, L501.2450 ####[facility] [address] [place], [place], [address] Lipase measurementOrdered By : Zack Card on 09-05-2024 Lipase measurement 33 U/L High <32 [facility] Lymphocytes Auto (Unsp spec) [#/Vol]Ordered By: Zack Card on 09-05-2024 Absolute lymphocyte count 1.39 X10^3/uL 0.83-4.51 [facility] Lymphocytes/100 WBC Auto (Un sp spec)Ordered By: Zack Card on 09-05-2024 Automated lymphocyte count as percentage of total leukocytes 14.1 % Low 19-41 [facility] MCV (RBC) [Entitic vol]Order ed By: Zack Card on 09-05-2024 MCV (mean corpuscular volume) determination 82.5 fL 81-99 [facility] MCV (mean corpuscular volume ) determinationOrdered By: Zack Card on 09-05-2024 MCV (RBC) [Entitic vol] 82.5 fL 81-99 [facility] Mean corpuscular hemoglobin (MCH) determinationOrdered By: Zack Card on 09-05-2024 MCH (RBC) [Entitic mass] 28.1 pg 27.0-32.0 [facility] Mean corpuscular hemoglobin (MCH) determination 28.1 pg 27.0-32.0 [facility] Mean corpuscular hemoglobin concentration (MCHC) determinationOrdered By: Zack Card on 09-05-2024 Mean corpuscular hemoglobin concentration (MCHC) determination 34.0 g/dL 32-36 [facility] Mean platelet volume determi nationOrdered By: Zack Card on 09-05-2024 Mean platelet volume determination 8.7 fl 6.2-12.0 [facility] Monocyte percentageOrdered B y: Zack Card on 09-05-2024 Monocytes/100 WBC (Bld) 5.1 % 0-10 [facility] Monocyte percentage 5.1 % 0-10 [facility] Neutrophil percentageOrdered By: Zack Card on 09-05-2024 Neutrophils/100 WBC (Bld) 79.7 % High 47-70 [facility] Neutrophil percentage 79.7 % High 47-70 [facility] Nucleated red blood cell per centageOrdered By: Zack Card on 09-05-2024 Nucleated red blood cell percentage 0 % 0-5 [facility] Platelet countOrdered By: Butch Card on 09-05-2024 Platelets (Bld) [#/Vol] 314 10*3/uL 150-450 [facility] Platelet count 314 K/mm3 150-450 [facility] Potassium (Unsp spec) [Mass/ Vol]Ordered By: Zack Card on 09-05-2024 Potassium measurement (mass/volume) 3.6 mmol/L 3.3-5.1 [facility] Potassium measurement (mass/ volume)Ordered By: Zack Card on 09-05-2024 Potassium (Unsp spec) [Mass/Vol] 3.6 mmol/L 3.3-5.1 [facility] RBC Auto (Bld) [#/Vol]Ordere d By: Zack Card on 09-05-2024 RBC (Bld) [#/Vol] 5.38 10*6/uL 4.2-5.4 [facility] Automated blood erythrocyte count 5.38 M/mm3 4.2-5.4 [facility] Serum creatinine measurement (mass/volume)Ordered By: Zack Card on 09-05-2024 Creatinine [Mass/Vol] 0.84 mg/dL 0.70-1.20 [facility] Serum globulin measurementOr dered By: Zack Card 09-05-2024 Globulin (S) [Mass/Vol] 4.0 g/dL 2.2-4.2 [facility] Serum globulin measurement 4.0 g/dL 2.2-4.2 [facility] Serum glucose measurement (m ass/volume)Ordered By: Zack Card on 09-05-2024 Glucose [Mass/Vol] 382 mg/dL High 70-99 [facility] Serum or plasma alanine hamilton otransferase (ALT) measurementOrdered By: Zack Card 09-05-2024 ALT [Catalytic activity/Vol] 22 U/L <35 [facility] Serum or plasma albumin xiomara urement (mass/volume)Ordered By: Zack Card on 09-05-2024 Albumin [Mass/Vol] 4.2 g/dL 3.5-5.0 [facility] Serum or plasma albumin/glob ulin mass ratioOrdered By: Zack Card 09-05-2024 Albumin/Globulin [Mass ratio] 1.0 {ratio} 0.9-2.4 [facility] Serum or plasma alkaline sabiha sphatase measurementOrdered By: Zack Card 09-05-2024 ALP [Catalytic activity/Vol] 141 U/L High 35-104 [facility] Serum or plasma calcium xiomara urement (mass/volume)Ordered By: Zack Card on 09-05-2024 Calcium [Mass/Vol] 10.0 mg/dL 7.6-11.0 [facility] Serum or plasma urea nitroge n measurement (mass/volume)Ordered By: Zack Card on 09-05-2024 Urea nitrogen [Mass/Vol] 14 mg/dL 09-20 [facility] Sodium levelOrdered By: Zack Card on 09-05-2024 Sodium [Moles/Vol] 132 mmol/L Low 133-145 [facility] Sodium level 132 mmol/L Low 133-145 [facility] Total proteinOrdered By: Sanjay Card on 09-05-2024 Protein [Mass/Vol] 8.2 g/dL 5.9-8.4 [facility] Total protein 8.2 g/dL 5.9-8.4 [facility] Urea nitrogen [Mass/Vol]Orde red By: Zack Card on 09-05-2024 Serum or plasma urea nitrogen measurement (mass/volume) 14 mg/dL 09-20 [facility] White blood cell (WBC) count Ordered By: Zack Card on 09-05-2024 WBC (Bld) [#/Vol] 9.9 10*3/uL 4.4-11.0 [facility] White blood cell (WBC) count 9.9 K/mm3 4.4-11.0 [facility] Basic Metabolic Profile (BMP )on 09-04-2024 BUN Normal - [facility] Comment on above: Result Comment: Canc elled via OM: Order cancelled - Patient discharged Performed By: #### L 500.2500, L100.0100 ####[facility] [address] [place], [address] BUN/CRE Normal 10-20 [facility] Comment on above: Result Comment: Canc elled via OM: Order cancelled - Patient discharged Performed By: #### L 500.2500, L100.0100 ####[facility] [address] [place], [address] Calcium Normal 7.6-11.0 [facility] Comment on above: Result Comment: Canc elled via OM: Order cancelled - Patient discharged Performed By: #### L 500.2500, L100.0100 ####[facility] [address] [place], [address] CL Normal 98-108 [facility] Comment on above: Result Comment: Canc elled via OM: Order cancelled - Patient discharged Performed By: #### L 500.2500, L100.0100 ####[facility] [address] [place], [address] CO2 Normal 21.0-32.0 [facility] Comment on above: Result Comment: Canc elled via OM: Order cancelled - Patient discharged Performed By: #### L 500.2500, L100.0100 ####[facility] [address] [place], [address] CREAT,SERUM Normal 0.70-1.20 [facility] Comment on above: Result Comment: Canc elled via OM: Order cancelled - Patient discharged Performed By: #### L 500.2500, L100.0100 ####[facility] [address] [place], [address] eGFR Normal >60 [facility] Comment on above: Result Comment: Canc elled via OM: Order cancelled - Patient discharged Performed By: #### L 500.2500, L100.0100 ####[facility] [address] [place], [address] GAP Normal 5-15 [facility] Comment on above: Result Comment: Canc elled via OM: Order cancelled - Patient discharged Performed By: #### L 500.2500, L100.0100 ####[facility] [address] [place], [address] GLU Normal 70-99 [facility] Comment on above: Result Comment: Canc elled via OM: Order cancelled - Patient discharged Performed By: #### L 500.2500, L100.0100 ####[facility] [address] [place], [address] Potassium Normal 3.3-5.1 [facility] Comment on above: Result Comment: Canc elled via OM: Order cancelled - Patient discharged Performed By: #### L 500.2500, L100.0100 ####[facility] [address] [place], [address] Basic Metabolic Profile (BMP) Normal 133-145 [facility] Comment on above: Result Comment: Canc elled via OM: Order cancelled - Patient discharged Performed By: #### L 500.2500, L100.0100 ####[facility] [address] [place], [address] CBC W/Diff, Automatedon 04-0 Absolute Neut Normal 2.0-7.7 [facility] Comment on above: Result Comment: Canc elled via OM: Order cancelled - Patient discharged Performed By: #### L 500.2500, L100.0100 ####[facility] [address] [place], [address] HCT Normal 37-47 [facility] Comment on above: Result Comment: Canc elled via OM: Order cancelled - Patient discharged Performed By: #### L 500.2500, L100.0100 ####[facility] [address] [place], [address] HGB Normal 12.0-15.0 [facility] Comment on above: Result Comment: Canc elled via OM: Order cancelled - Patient discharged Performed By: #### L 500.2500, L100.0100 ####[facility] [address] [place], [address] MCH Normal 27.0-32.0 [facility] Comment on above: Result Comment: Canc elled via OM: Order cancelled - Patient discharged Performed By: #### L 500.2500, L100.0100 ####[facility] [address] [place], [address] MCHC Normal 32-36 [facility] Comment on above: Result Comment: Canc elled via OM: Order cancelled - Patient discharged Performed By: #### L 500.2500, L100.0100 ####[facility] [address] [place], [address] MCV Normal 81-99 [facility] Comment on above: Result Comment: Canc elled via OM: Order cancelled - Patient discharged Performed By: #### L 500.2500, L100.0100 ####[facility] [address] [place], [address] NEUT% Normal 47-70 [facility] Comment on above: Result Comment: Canc elled via OM: Order cancelled - Patient discharged Performed By: #### L 500.2500, L100.0100 ####[facility] [address] [place], [address] PLT Normal 150-450 [facility] Comment on above: Result Comment: Canc elled via OM: Order cancelled - Patient discharged Performed By: #### L 500.2500, L100.0100 ####[facility] [address] [place], [address] RBC Normal 4.2-5.4 [facility] Comment on above: Result Comment: Canc elled via OM: Order cancelled - Patient discharged Performed By: #### L 500.2500, L100.0100 ####[facility] [address] [place], [address] RDW CV Normal 11.6-14.6 [facility] Comment on above: Result Comment: Canc elled via OM: Order cancelled - Patient discharged Performed By: #### L 500.2500, L100.0100 ####[facility] [address] [place], [address] RDW SD Normal 35.1-43.9 [facility] Comment on above: Result Comment: Canc elled via OM: Order cancelled - Patient discharged Performed By: #### L 500.2500, L100.0100 ####[facility] [address] [place], [address] WBC Normal 4.4-11.0 [facility] Comment on above: Result Comment: Canc elled via OM: Order cancelled - Patient discharged Performed By: #### L 500.2500, L100.0100 ####[facility] [address] [place], [address] Basic Metabolic Profile (BMP )on 09-03-2024 BUN Normal 4-19 [facility] Comment on above: Result Comment: Canc elled via OM: Order cancelled - Patient discharged Performed By: #### L 500.2500, L100.0100 ####[facility] [address] [place], [address] BUN/CRE Normal 10-20 [facility] Comment on above: Result Comment: Canc elled via OM: Order cancelled - Patient discharged Performed By: #### L 500.2500, L100.0100 ####[facility] [address] [place], [address] Calcium Normal 7.6-11.0 [facility] Comment on above: Result Comment: Canc elled via OM: Order cancelled - Patient discharged Performed By: #### L 500.2500, L100.0100 ####[facility] [address] [place], [address] CL Normal 98-108 [facility] Comment on above: Result Comment: Canc elled via OM: Order cancelled - Patient discharged Performed By: #### L 500.2500, L100.0100 ####[facility] [address] [place], [address] CO2 Normal 21.0-32.0 [facility] Comment on above: Result Comment: Canc elled via OM: Order cancelled - Patient discharged Performed By: #### L 500.2500, L100.0100 ####[facility] [address] [place], [address] CREAT,SERUM Normal 0.70-1.20 [facility] Comment on above: Result Comment: Canc elled via OM: Order cancelled - Patient discharged Performed By: #### L 500.2500, L100.0100 ####[facility] [address] [place], [address] eGFR Normal >60 [facility] Comment on above: Result Comment: Canc elled via OM: Order cancelled - Patient discharged Performed By: #### L 500.2500, L100.0100 ####[facility] [address] [place], [address] GAP Normal 5-15 [facility] Comment on above: Result Comment: Canc elled via OM: Order cancelled - Patient discharged Performed By: #### L 500.2500, L100.0100 ####[facility] [address] [place], [address] GLU Normal 70-99 [facility] Comment on above: Result Comment: Canc elled via OM: Order cancelled - Patient discharged Performed By: #### L 500.2500, L100.0100 ####[facility] [address] [place], [address] Potassium Normal 3.3-5.1 [facility] Comment on above: Result Comment: Canc elled via OM: Order cancelled - Patient discharged Performed By: #### L 500.2500, L100.0100 ####[facility] [address] [place], [address] Basic Metabolic Profile (BMP) Normal 133-145 [facility] Comment on above: Result Comment: Canc elled via OM: Order cancelled - Patient discharged Performed By: #### L 500.2500, L100.0100 ####[facility] [address] [place], [address] CBC W/Diff, Automatedon 04-0 Absolute Neut Normal 2.0-7.7 [facility] Comment on above: Result Comment: Canc elled via OM: Order cancelled - Patient discharged Performed By: #### L 500.2500, L100.0100 ####[facility] [address] [place], [address] HCT Normal 37-47 [facility] Comment on above: Result Comment: Canc elled via OM: Order cancelled - Patient discharged Performed By: #### L 500.2500, L100.0100 ####[facility] [address] [place], [address] HGB Normal 12.0-15.0 [facility] Comment on above: Result Comment: Canc elled via OM: Order cancelled - Patient discharged Performed By: #### L 500.2500, L100.0100 ####[facility] [address] [place], [address] MCH Normal 27.0-32.0 [facility] Comment on above: Result Comment: Canc elled via OM: Order cancelled - Patient discharged Performed By: #### L 500.2500, L100.0100 ####[facility] [address] [place], [address] MCHC Normal 32-36 [facility] Comment on above: Result Comment: Canc elled via OM: Order cancelled - Patient discharged Performed By: #### L 500.2500, L100.0100 ####[facility] [address] [place], [address] MCV Normal 81-99 [facility] Comment on above: Result Comment: Canc elled via OM: Order cancelled - Patient discharged Performed By: #### L 500.2500, L100.0100 ####[facility] [address] [place], [address] NEUT% Normal 47-70 [facility] Comment on above: Result Comment: Canc elled via OM: Order cancelled - Patient discharged Performed By: #### L 500.2500, L100.0100 ####[facility] [address] [place], [address] PLT Normal 150-450 [facility] Comment on above: Result Comment: Canc elled via OM: Order cancelled - Patient discharged Performed By: #### L 500.2500, L100.0100 ####[facility] [address] [place], [address] RBC Normal 4.2-5.4 [facility] Comment on above: Result Comment: Canc elled via OM: Order cancelled - Patient discharged Performed By: #### L 500.2500, L100.0100 ####[facility] [address] [place], [address] RDW CV Normal 11.6-14.6 [facility] Comment on above: Result Comment: Canc elled via OM: Order cancelled - Patient discharged Performed By: #### L 500.2500, L100.0100 ####[facility] [address] [place], [address] RDW SD Normal 35.1-43.9 [facility] Comment on above: Result Comment: Canc elled via OM: Order cancelled - Patient discharged Performed By: #### L 500.2500, L100.0100 ####[facility] [address] [place], [address] WBC Normal 4.4-11.0 [facility] Comment on above: Result Comment: Canc elled via OM: Order cancelled - Patient discharged Performed By: #### L 500.2500, L100.0100 ####[facility] [address] [place], [address] Absolute lymphocyte countOrd ered By: Latricia Aaron on 09-02-2024 Lymphocytes Auto (Unsp spec) [#/Vol] 1.33 10*3/uL 0.83-4.51 [facility] Absolute neutrophil countOrd ered By: Latricia Aaron on 09-02-2024 Absolute neutrophil count 7.4 X10^3/uL 2.0-7.7 [facility] Anion gap [Moles/Vol]Ordered By: Latricia Aaron on 09-02-2024 Anion gap in Serum or Plasma 14 5-15 [facility] Anion gap in Serum or Plasma Ordered By: Latricia Aaron on 09-02-2024 Anion gap [Moles/Vol] 14 mmol/L 10-16 [facility] Automated lymphocyte count a s percentage of total leukocytesOrdered By: Latricia Aaron on 09-02-2024 Lymphocytes/100 WBC Auto (Unsp spec) 14.4 % Low 19-41 [facility] BUN/creatinine ratioOrdered By: Latricia Aaron on 09-02-2024 Urea nitrogen/Creatinine [Mass ratio] 22.6 mg/mg High 10-20 [facility] BUN/creatinine ratio 22.6 RATIO High 10-20 [facility] Basic Metabolic Profile (BMP )on 09-02-2024 BUN/CRE 22.6 RATIO High 10-20 [facility] Comment on above: Performed By: #### L 500.2500, L501.5200, L501.2300, L100.0100 ####[facility] [address] [place], [address] ECRCL 105.77 ml/min Normal 50-250 [facility] Comment on above: Performed By: #### L 500.2500, L501.5200, L501.2300, L100.0100 ####[facility] [address] [place], [address] GAP 14 Normal -15 [facility] Comment on above: Performed By: #### L 500.2500, L501.5200, L501.2300, L100.0100 ####[facility] [address] [place], [address] Potassium [Moles/Vol] 3.9 mmol/L Normal 3.3-5.1 [facility] Comment on above: Performed By: #### L 500.2500, L501.5200, L501.2300, L100.0100 ####[facility] [address] [place], [address] Basophil percentageOrdered B y: Latricia Aaron on 09-02-2024 Basophils/100 WBC (Bld) 0.3 % 0-1 [facility] Basophil percentage 0.3 % 0-1 [facility] Bedside Glucoseon 09-02-2024 FINGERSTICK GLU 229 mg/dL High [address] [place] [address] Comment on above: Result Comment: TALIA GEMENT OF PATIENT CARE PER NURSING PROTOCOL Performed By: #### L 501.080 ####[facility] [address] [place], [address] FINGERSTICK GLU 228 mg/dL High [address] [place] [address] Comment on above: Result Comment: TALIA GEMENT OF PATIENT CARE PER NURSING PROTOCOL Performed By: #### L 501.080 ####[facility] [address] [place], [address] FINGERSTICK GLU 248 mg/dL High [address] [place] [address] Comment on above: Result Comment: TALIA GEMENT OF PATIENT CARE PER NURSING PROTOCOL Performed By: #### L 501.080 ####[facility] [address] [place], [address] CBC W/Diff, Automatedon 04- Absolute Lymph 1.33 X10 3/uL Normal 0.83-4.51 [facility] Comment on above: Performed By: #### L 500.2500, L501.5200, L501.2300, L100.0100 ####[facility] [address] [place], [address] Absolute Neut 7.4 X10 3/uL Normal 2.0-7.7 [facility] Comment on above: Performed By: #### L 500.2500, L501.5200, L501.2300, L100.0100 ####[facility] [address] [place], [address] Basophils/100 WBC (Bld) 0.3 % Normal 0-1 [facility] Comment on above: Performed By: #### L 500.2500, L501.5200, L501.2300, L100.0100 ####[facility] [address] [place], [address] Eosinophils/100 WBC (Bld) 0.2 % Normal 0-5 [facility] Comment on above: Performed By: #### L 500.2500, L501.5200, L501.2300, L100.0100 ####[facility] [address] [place], [address] Erythrocyte distribution width (RBC) [Ratio] 13.8 % Normal 11.6-14.6 [facility] Comment on above: Performed By: #### L 500.2500, L501.5200, L501.2300, L100.0100 ####[facility] [address] [place], [address] Hematocrit (Bld) [Volume fraction] 42.7 % Normal 37-47 [facility] Comment on above: Performed By: #### L 500.2500, L501.5200, L501.2300, L100.0100 ####[facility] [address] [place], [address] Hemoglobin (Bld) [Mass/Vol] 14.0 g/dL Normal 12.0-15.0 [facility] Comment on above: Performed By: #### L 500.2500, L501.5200, L501.2300, L100.0100 ####[facility] [address] [place], [address] IG% 0.400 Normal 0.0-0.9 [facility] Comment on above: Result Comment: IG% - Immature Granulocytes (promyelocytes, myelocytes andmetamyelocytes) > 1% indicates that a LEFT SHIFT is Present. Performed By: #### L 500.2500, L501.5200, L501.2300, L100.0100 ####[facility] [address] [place], [address] Lymphocytes/100 WBC (Bld) 14.4 % Low 19-41 [facility] Comment on above: Performed By: #### L 500.2500, L501.5200, L501.2300, L100.0100 ####[facility] [address] [place], [address] MCH (RBC) [Entitic mass] 27.5 pg Normal 27.0-32.0 [facility] Comment on above: Performed By: #### L 500.2500, L501.5200, L501.2300, L100.0100 ####[facility] [address] [place], [address] MCHC (RBC) [Mass/Vol] 32.8 g/dL Normal 32-36 [facility] Comment on above: Performed By: #### L 500.2500, L501.5200, L501.2300, L100.0100 ####[facility] [address] [place], [address] MCV (RBC) [Entitic vol] 83.7 fL Normal 81-99 [facility] Comment on above: Performed By: #### L 500.2500, L501.5200, L501.2300, L100.0100 ####[facility] [address] [place], [address] Monocytes/100 WBC (Bld) 4.0 % Normal 0-10 [facility] Comment on above: Performed By: #### L 500.2500, L501.5200, L501.2300, L100.0100 ####[facility] [address] [place], [address] Neutrophils/100 WBC (Bld) 80.7 % High 47-70 [facility] Comment on above: Performed By: #### L 500.2500, L501.5200, L501.2300, L100.0100 ####[facility] [address] [place], [address] Nucleated RBC (Bld) [#/Vol] 0 10*3/uL Normal 0-5 [facility] Comment on above: Performed By: #### L 500.2500, L501.5200, L501.2300, L100.0100 ####[facility] [address] [place], [address] Platelet mean volume (Bld) [Entitic vol] 8.8 fL Normal 6.2-12.0 [facility] Comment on above: Performed By: #### L 500.2500, L501.5200, L501.2300, L100.0100 ####[facility] [address] [place], [address] Platelets (Bld) [#/Vol] 269 10*3/uL Normal 150-450 [facility] Comment on above: Performed By: #### L 500.2500, L501.5200, L501.2300, L100.0100 ####[facility] [address] [place], [address] RBC (Bld) [#/Vol] 5.10 10*6/uL Normal 4.2-5.4 [facility] Comment on above: Performed By: #### L 500.2500, L501.5200, L501.2300, L100.0100 ####[facility] [address] [place], [address] RDW SD 42.4 fl Normal 35.1-43.9 [facility] Comment on above: Performed By: #### L 500.2500, L501.5200, L501.2300, L100.0100 ####[facility] [address] [place], [address] WBC (Bld) [#/Vol] 9.2 10*3/uL Normal 4.4-11.0 [facility] Comment on above: Performed By: #### L 500.2500, L501.5200, L501.2300, L100.0100 ####[facility] [address] [place], [address] Calcium [Mass/Vol]Ordered By : Latricia Aaron on 09-02-2024 Serum or plasma calcium measurement (mass/volume) 9.4 mg/dL 7.6-11.0 [facility] Carbon dioxide, total [Moles /volume] in Central venous bloodOrdered By: Latricia Aaron on 09-02-2024 CO2 [Moles/Vol] 20.0 mmol/L Low 21.0-32.0 [facility] Comment on above: Performed By: #### L 500.2500, L501.5200, L501.2300, L100.0100 ####[facility] [address] [place], [address] Carbon dioxide, total [Moles/volume] in Central venous blood 20.0 mmol/L Low 21.0-32.0 [facility] Chloride assayOrdered By: Tristan Aaron on 09-02-2024 Chloride [Moles/Vol] 101 mmol/L Normal 98-108 [facility] Comment on above: Performed By: #### L 500.2500, L501.5200, L501.2300, L100.0100 ####[facility] [address] [place], [address] Chloride assay 101 mmol/L 98-108 [facility] Creatinine [Mass/Vol]Ordered By: Latricia Aaron on 09-02-2024 Serum creatinine measurement (mass/volume) 0.67 mg/dL Low 0.70-1.20 [facility] Eosinophil percentageOrdered By: Latricia Aaron on 09-02-2024 Eosinophils/100 WBC (Bld) 0.2 % 0-5 [facility] Eosinophil percentage 0.2 % 0-5 [facility] Erythrocyte distribution wid th (RBC) [Ratio]Ordered By: Latricia Aaron on 09-02-2024 Erythrocyte distribution width ratio 13.8 % 11.6-14.6 [facility] Erythrocyte distribution wid th ratioOrdered By: Latricia Aaron on 09-02-2024 Erythrocyte distribution width (RBC) [Ratio] 13.8 % 11.6-14.6 [facility] Erythrocyte distribution wid th standard deviationOrdered By: Latricia Aaron on 09-02-2024 Erythrocyte distribution width (RBC) [Ratio] 42.4 fl 35.1-43.9 [facility] Erythrocyte distribution width standard deviation 42.4 fl 35.1-43.9 [facility] Estimation of creatinine sylvain aranceOrdered By: Latricia Aaron on 09-02-2024 Estimation of creatinine clearance 105.77 ml/min 50-250 [facility] GFR/1.73 sq M.predicted estephanie g non-blacks MDRD (S/P/Bld) [Vol rate/Area]Ordered By: Latricia Aaron on 09-02-2024 Glomerular filtration rate (GFR) estimation/1.73 sq m using serum, plasma, or whole b 104 >60 [facility] Glomerular filtration rate ( GFR) estimation/1.73 sq m using serum, plasma, or whole bOrdered By: Latricia Aaron on 09-02-2024 GFR/1.73 sq M.predicted among non-blacks MDRD (S/P/Bld) [Vol rate/Area] 104 mL/min/{1.73_m2} Normal >60 [facility] Comment on above: Result Comment: mL/m in/1.73m2 CKD-EPI Creatinine Equation (2020) Performed By: #### L 500.2500, L501.5200, L501.2300, L100.0100 ####[facility] [address] [place], [address] Glucose [Mass/Vol]Ordered By : Latricia Aaron on 09-02-2024 Serum glucose measurement (mass/volume) 242 mg/dL High 70-99 [facility] Glucose measurement at bedsi deOrdered By: Latricia Aaron on 09-02-2024 Glucose [Mass/Vol] 229 mg/dL High 74-106 [facility] Glucose measurement at bedside 229 mg/dL High 74-106 [facility] Hematocrit Auto (Bld) [Volum e fraction]Ordered By: Latricia Aaron on 09-02-2024 Hematocrit (Bld) [Volume fraction] 42.7 % 37-47 [facility] Automated blood hematocrit (percentage) 42.7 % 37-47 [facility] Hemoglobin measurementOrdere d By: Latricia Aaron on 09-02-2024 Hemoglobin (Bld) [Mass/Vol] 14.0 g/dL 12.0-15.0 [facility] Hemoglobin measurement 14.0 g/dL 12.0-15.0 [facility] Immature granulocytes/100 WB C Auto (Bld)Ordered By: Latricia Aaron on 09-02-2024 Immature granulocytes/100 WBC (Bld) 0.400 % 0.0-0.9 [facility] Automated immature granulocyte percentage 0.400 % 0.0-0.9 [facility] Lymphocytes Auto (Unsp spec) [#/Vol]Ordered By: Latricia Aaron on 09-02-2024 Absolute lymphocyte count 1.33 X10^3/uL 0.83-4.51 [facility] Lymphocytes/100 WBC Auto (Un sp spec)Ordered By: Latricia Aaron on 09-02-2024 Automated lymphocyte count as percentage of total leukocytes 14.4 % Low 19-41 [facility] MCV (RBC) [Entitic vol]Order ed By: Latricia Aaron on 09-02-2024 MCV (mean corpuscular volume) determination 83.7 fL 81-99 [facility] MCV (mean corpuscular volume ) determinationOrdered By: Latricia Aaron on 09-02-2024 MCV (RBC) [Entitic vol] 83.7 fL 81-99 [facility] Magnesiumon 09-02-2024 Magnesium [Mass/Vol] 2.0 mg/dL Normal 1.5-2.2 [facility] Comment on above: Performed By: #### L 500.2500, L501.5200, L501.2300, L100.0100 ####[facility] [address] [place], [address] Magnesium (Unsp spec) [Mass/ Vol]Ordered By: Latricia Aaron on 09-02-2024 Magnesium measurement (mass/volume) 2.0 mg/dL 1.5-2.2 [facility] Magnesium measurement (mass/ volume)Ordered By: Latricia Aaron on 09-02-2024 Magnesium (Unsp spec) [Mass/Vol] 2.0 mg/dL 1.5-2.2 [facility] Mean corpuscular hemoglobin (MCH) determinationOrdered By: Latricia Aaron on 09-02-2024 MCH (RBC) [Entitic mass] 27.5 pg 27.0-32.0 [facility] Mean corpuscular hemoglobin (MCH) determination 27.5 pg 27.0-32.0 [facility] Mean corpuscular hemoglobin concentration (MCHC) determinationOrdered By: Latricia Aaron on 09-02-2024 Mean corpuscular hemoglobin concentration (MCHC) determination 32.8 g/dL 32-36 [facility] Mean platelet volume determi nationOrdered By: Latricia Aaron on 09-02-2024 Mean platelet volume determination 8.8 fl 6.2-12.0 [facility] Monocyte percentageOrdered B y: Latricia Aaron on 09-02-2024 Monocytes/100 WBC (Bld) 4.0 % 0-10 [facility] Monocyte percentage 4.0 % 0-10 [facility] Neutrophil percentageOrdered By: Latricia Aaron on 09-02-2024 Neutrophils/100 WBC (Bld) 80.7 % High 47-70 [facility] Neutrophil percentage 80.7 % High 47-70 [facility] Nucleated red blood cell per centageOrdered By: Latricia Aaron on 09-02-2024 Nucleated red blood cell percentage 0 % 0-5 [facility] Phosphoruson 09-02-2024 Phosphate [Mass/Vol] 2.1 mg/dL Low 2.7-4.5 [facility] Comment on above: Performed By: #### L 500.2500, L501.5200, L501.2300, L100.0100 ####[facility] [address] [place], [address] Platelet countOrdered By: Tristan Aaron on 09-02-2024 Platelets (Bld) [#/Vol] 269 10*3/uL 150-450 [facility] Platelet count 269 K/mm3 150-450 [facility] Potassium (Unsp spec) [Mass/ Vol]Ordered By: Latricia Aaron on 09-02-2024 Potassium measurement (mass/volume) 3.9 mmol/L 3.3-5.1 [facility] Potassium measurement (mass/ volume)Ordered By: Latricia Aaron on 09-02-2024 Potassium (Unsp spec) [Mass/Vol] 3.9 mmol/L 3.3-5.1 [facility] RBC Auto (Bld) [#/Vol]Ordere d By: Latricia Aaron on 09-02-2024 RBC (Bld) [#/Vol] 5.10 10*6/uL 4.2-5.4 [facility] Automated blood erythrocyte count 5.10 M/mm3 4.2-5.4 [facility] Serum creatinine measurement (mass/volume)Ordered By: Latricia Aaron on 09-02-2024 Creatinine [Mass/Vol] 0.67 mg/dL Low 0.70-1.20 [facility] Comment on above: Performed By: #### L 500.2500, L501.5200, L501.2300, L100.0100 ####[facility] [address] [place], [place], [address] Serum glucose measurement (m ass/volume)Ordered By: Latricia Aaron on 09-02-2024 Glucose [Mass/Vol] 242 mg/dL High 70-99 [facility] Comment on above: Performed By: #### L 500.2500, L501.5200, L501.2300, L100.0100 ####[facility] [address] [place], [address] Serum or plasma calcium xiomara urement (mass/volume)Ordered By: Latricia Aaron on 09-02-2024 Calcium [Mass/Vol] 9.4 mg/dL Normal 7.6-11.0 [facility] Comment on above: Performed By: #### L 500.2500, L501.5200, L501.2300, L100.0100 ####[facility] [address] [place], [address] Serum or plasma urea nitroge n measurement (mass/volume)Ordered By: Latricia Aaron on 09-02-2024 Urea nitrogen [Mass/Vol] 15 mg/dL Normal 4-19 [facility] Comment on above: Performed By: #### L 500.2500, L501.5200, L501.2300, L100.0100 ####[facility] [address] [place], [address] Serum phosphorus measurement Ordered By: Latricia Aaron on 09-02-2024 Serum phosphorus measurement 2.1 mg/dL Low 2.7-4.5 [facility] Sodium levelOrdered By: Neymar Aaron on 09-02-2024 Sodium [Moles/Vol] 136 mmol/L Normal 133-145 [facility] Comment on above: Performed By: #### L 500.2500, L501.5200, L501.2300, L100.0100 ####[facility] [address], [address] Sodium level 136 mmol/L 133-145 [facility] Urea nitrogen [Mass/Vol]Orde red By: Latricia Aaron on 09-02-2024 Serum or plasma urea nitrogen measurement (mass/volume) 15 mg/dL - [facility] White blood cell (WBC) count Ordered By: Latricia Aaron on 09-02-2024 WBC (Bld) [#/Vol] 9.2 10*3/uL 4.4-11.0 [facility] White blood cell (WBC) count 9.2 K/mm3 4.4-11.0 [facility] Basic Metabolic Profile (BMP )on 09-01-2024 BUN/CRE 27.7 RATIO High 10-20 [facility] Comment on above: Performed By: #### L 500.2500, L100.0500 ####[facility] [address] [place], [address] Calcium [Mass/Vol] 8.7 mg/dL Normal 7.6-11.0 [facility] Comment on above: Performed By: #### L 500.2500, L100.0500 ####[facility] [address] [place], [address] Chloride [Moles/Vol] 110 mmol/L High 98-108 [facility] Comment on above: Performed By: #### L 500.2500, L100.0500 ####[facility] [address] [place], [address] CO2 [Moles/Vol] 19.8 mmol/L Low 21.0-32.0 [facility] Comment on above: Performed By: #### L 500.2500, L100.0500 ####[facility] [address] [place], [address] Creatinine [Mass/Vol] 0.77 mg/dL Normal 0.70-1.20 [facility] Comment on above: Performed By: #### L 500.2500, L100.0500 ####[facility] [address] [place], [address] ECRCL 91.72 ml/min Normal 50-250 [facility] Comment on above: Performed By: #### L 500.2500, L100.0500 ####[facility] [address] [place], [address] GAP 8 Normal 5-15 [facility] Comment on above: Performed By: #### L 500.2500, L100.0500 ####[facility] [address] [place], [address] GFR/1.73 sq M.predicted among non-blacks MDRD (S/P/Bld) [Vol rate/Area] 93 mL/min/{1.73_m2} Normal >60 [facility] Comment on above: Result Comment: mL/m in/1.73m2 CKD-EPI Creatinine Equation (2020) Performed By: #### L 500.2500, L100.0500 ####[facility] [address] [place], [address] Glucose [Mass/Vol] 93 mg/dL Normal 70-99 [facility] Comment on above: Performed By: #### L 500.2500, L100.0500 ####[facility] [address] [place], [address] Potassium [Moles/Vol] 4.0 mmol/L Normal 3.3-5.1 [facility] Comment on above: Performed By: #### L 500.2500, L100.0500 ####[facility] [address] [place], [address] Sodium [Moles/Vol] 138 mmol/L Normal 133-145 [facility] Comment on above: Performed By: #### L 500.2500, L100.0500 ####[facility] [address] [place], [address] Urea nitrogen [Mass/Vol] 21 mg/dL High 4-19 [facility] Comment on above: Performed By: #### L 500.2500, L100.0500 ####[facility] [address] [place], [address] Bedside Glucoseon 09-01-2024 FINGERSTICK GLU 162 mg/dL High 74-106 [facility] Comment on above: Result Comment: TALIA GEMENT OF PATIENT CARE PER NURSING PROTOCOL Performed By: #### L 501.080 ####[facility] [address] [place], [address] FINGERSTICK GLU 142 mg/dL High 74-106 [facility] Comment on above: Result Comment: TALIA GEMENT OF PATIENT CARE PER NURSING PROTOCOL Performed By: #### L 501.080 ####[facility] [address] [place], [address] FINGERSTICK GLU 58 mg/dL Low 74-106 [facility] Comment on above: Result Comment: TALIA GEMENT OF PATIENT CARE PER NURSING PROTOCOL Performed By: #### L 501.080 ####[facility] [address] [place], [address] FINGERSTICK GLU 80 mg/dL Normal 74-106 [facility] Comment on above: Result Comment: TALIA GEMENT OF PATIENT CARE PER NURSING PROTOCOL Performed By: #### L 501.080 ####[facility] [address] [place], [address] FINGERSTICK GLU 73 mg/dL Low 74-106 [facility] Comment on above: Result Comment: TALIA GEMENT OF PATIENT CARE PER NURSING PROTOCOL Performed By: #### L 501.080 ####[facility] [address] [place], [address] FINGERSTICK GLU 139 mg/dL High 74-106 [facility] Comment on above: Result Comment: TALIA GEMENT OF PATIENT CARE PER NURSING PROTOCOL Performed By: #### L 501.080 ####[facility] [address] [place], [address] FINGERSTICK GLU 90 mg/dL Normal 74-106 [facility] Comment on above: Result Comment: TALIA GEMENT OF PATIENT CARE PER NURSING PROTOCOL Performed By: #### L 501.080 ####[facility] [address] [place], [address] CBC-Complete Blood Cnt No Di ffon 09-01-2024 Erythrocyte distribution width (RBC) [Ratio] 14.2 % Normal 11.6-14.6 [facility] Comment on above: Performed By: #### L 500.2500, L100.0500 ####[facility] [address] [place], [address] Hematocrit (Bld) [Volume fraction] 32.6 % Low 37-47 [facility] Comment on above: Performed By: #### L 500.2500, L100.0500 ####[facility] [address] [place], [address] Hemoglobin (Bld) [Mass/Vol] 10.7 g/dL Low 12.0-15.0 [facility] Comment on above: Performed By: #### L 500.2500, L100.0500 ####[facility] [address] [place], [address] MCH (RBC) [Entitic mass] 28.2 pg Normal 27.0-32.0 [facility] Comment on above: Performed By: #### L 500.2500, L100.0500 ####[facility] [address] [place], [address] MCHC (RBC) [Mass/Vol] 32.8 g/dL Normal 32-36 [facility] Comment on above: Performed By: #### L 500.2500, L100.0500 ####[facility] [address] [place], [address] MCV (RBC) [Entitic vol] 85.8 fL Normal 81-99 [facility] Comment on above: Performed By: #### L 500.2500, L100.0500 ####[facility] [address] [place], [address] Platelet mean volume (Bld) [Entitic vol] 9.0 fL Normal 6.2-12.0 [facility] Comment on above: Performed By: #### L 500.2500, L100.0500 ####[facility] [address] [place], [address] Platelets (Bld) [#/Vol] 238 10*3/uL Normal 150-450 [facility] Comment on above: Performed By: #### L 500.2500, L100.0500 ####[facility] [address] [place], [address] RBC (Bld) [#/Vol] 3.80 10*6/uL Low 4.2-5.4 [facility] Comment on above: Performed By: #### L 500.2500, L100.0500 ####[facility] [address] [place], [address] RDW SD 44.1 fl High 35.1-43.9 [facility] Comment on above: Performed By: #### L 500.2500, L100.0500 ####[facility] [address] [place], [address] WBC (Bld) [#/Vol] 6.6 10*3/uL Normal 4.4-11.0 [facility] Comment on above: Performed By: #### L 500.2500, L100.0500 ####[facility] [address] [place], [address] Echo Complete W/ Contraston 09-01-2024 Echo Complete W/ Contrast Normal [facility] Echocardiogram study reportO rdered By: Alil Brito on 09-01-2024 Study report [facility] Work Phone: Bedside Glucoseon 08-31-2024 FINGERSTICK GLU 228 mg/dL High 74-106 [facility] Comment on above: Result Comment: TALIA GEMENT OF PATIENT CARE PER NURSING PROTOCOL Performed By: #### L 501.080 ####[facility] [address] [place], [address] FINGERSTICK GLU 129 mg/dL High [facility] Comment on above: Result Comment: TALIA GEMENT OF PATIENT CARE PER NURSING PROTOCOL Performed By: #### L 501.080 ####[facility] [address] [place], [address] FINGERSTICK GLU 152 mg/dL High -106 [facility] Comment on above: Result Comment: TALIA GEMENT OF PATIENT CARE PER NURSING PROTOCOL Performed By: #### L 501.080 ####[facility] [address] [place], [address] FINGERSTICK GLU 126 mg/dL High -[address] [place] [address] Comment on above: Result Comment: TALIA GEMENT OF PATIENT CARE PER NURSING PROTOCOL Performed By: #### L 501.080 ####[facility] [address] [place], [address] Bedside Glucoseon 08-30-2024 FINGERSTICK GLU 215 mg/dL High -[address] [place] [address] Comment on above: Result Comment: TALIA GEMENT OF PATIENT CARE PER NURSING PROTOCOL Performed By: #### L 501.080 ####[facility] [address] [place], [address] FINGERSTICK GLU 253 mg/dL High [address] [place] [address] Comment on above: Result Comment: TALIA GEMENT OF PATIENT CARE PER NURSING PROTOCOL Performed By: #### L 501.080 ####[facility] [address] [place], [address] FINGERSTICK GLU 152 mg/dL High [address] [place] [address] Comment on above: Result Comment: TALIA GEMENT OF PATIENT CARE PER NURSING PROTOCOL Performed By: #### L 501.080 ####[facility] [address] [place], [address] FINGERSTICK GLU 117 mg/dL High 74-106 [facility] Comment on above: Result Comment: TALIA GEMENT OF PATIENT CARE PER NURSING PROTOCOL Performed By: #### L 501.080 ####[facility] [address] [place], [address] FINGERSTICK GLU 318 mg/dL High 74-106 [facility] Comment on above: Result Comment: TALIA GEMENT OF PATIENT CARE PER NURSING PROTOCOL Performed By: #### L 501.080 ####[facility] [address] [place], [address] CDIFF (PCR)on 08-30-2024 CDIFF Normal [facility] Comment on above: Performed By: #### M 100.6796, M100.637 ####[facility] [address] [place], [address] ENTERIC PATHOGEN PANEL STOOL on 08-30-2024 EP PANEL Normal [facility] Comment on above: Performed By: #### M 100.6796, M100.637 ####[facility] [address] [place], [address] Basic Metabolic Profile (BMP )on 08-29-2024 BUN/CRE 32.2 RATIO High 10-20 [facility] Comment on above: Performed By: #### L 100.0100, L500.2500 ####[facility] [address] [place], [address] Calcium [Mass/Vol] 8.9 mg/dL Normal 7.6-11.0 [facility] Comment on above: Performed By: #### L 100.0100, L500.2500 ####[facility] [address] [place], [address] Chloride [Moles/Vol] 104 mmol/L Normal 98-108 [facility] Comment on above: Performed By: #### L 100.0100, L500.2500 ####[facility] [address] [place], [address] CO2 [Moles/Vol] 21.3 mmol/L Normal 21.0-32.0 [facility] Comment on above: Performed By: #### L 100.0100, L500.2500 ####[facility] [address] [place], [address] Creatinine [Mass/Vol] 0.80 mg/dL Normal 0.70-1.20 [facility] Comment on above: Performed By: #### L 100.0100, L500.2500 ####[facility] [address] [place], [address] ECRCL 88.59 ml/min Normal 50-250 [facility] Comment on above: Performed By: #### L 100.0100, L500.2500 ####[facility] [address] [place], [address] GAP 10 Normal 5-15 [facility] Comment on above: Performed By: #### L 100.0100, L500.2500 ####[facility] [address] [place], [address] GFR/1.73 sq M.predicted among non-blacks MDRD (S/P/Bld) [Vol rate/Area] 89 mL/min/{1.73_m2} Normal >60 [facility] Comment on above: Result Comment: mL/m in/1.73m2 CKD-EPI Creatinine Equation (2020) Performed By: #### L 100.0100, L500.2500 ####[facility] [address] [place], [address] Glucose [Mass/Vol] 104 mg/dL High 70-99 [facility] Comment on above: Performed By: #### L 100.0100, L500.2500 ####[facility] [address] [place], [address] Potassium [Moles/Vol] 3.7 mmol/L Normal 3.3-5.1 [facility] Comment on above: Performed By: #### L 100.0100, L500.2500 ####[facility] [address] [place], [address] Sodium [Moles/Vol] 135 mmol/L Normal 133-145 [facility] Comment on above: Performed By: #### L 100.0100, L500.2500 ####[facility] [address] [place], [address] Urea nitrogen [Mass/Vol] 26 mg/dL High 4-19 [facility] Comment on above: Performed By: #### L 100.0100, L500.2500 ####[facility] [address] [place], [address] Bedside Glucoseon 08-29-2024 FINGERSTICK GLU 160 mg/dL High 74-106 [facility] Comment on above: Result Comment: TALIA GEMENT OF PATIENT CARE PER NURSING PROTOCOL Performed By: #### L 501.080 ####[facility] [address] [place], [address] FINGERSTICK GLU 156 mg/dL High 74-106 [facility] Comment on above: Result Comment: TALIA GEMENT OF PATIENT CARE PER NURSING PROTOCOL Performed By: #### L 501.080 ####[facility] [address] [place], [address] FINGERSTICK GLU 93 mg/dL Normal 74-106 [facility] Comment on above: Result Comment: TALIA GEMENT OF PATIENT CARE PER NURSING PROTOCOL Performed By: #### L 501.080 ####[facility] [address] [place], [address] CBC W/Diff, Automatedon - Absolute Lymph 2.20 X10 3/uL Normal 0.83-4.51 [facility] Comment on above: Performed By: #### L 100.0100, L500.2500 ####[facility] [address] [place], [address] Absolute Neut 5.8 X10 3/uL Normal 2.0-7.7 [facility] Comment on above: Performed By: #### L 100.0100, L500.2500 ####[facility] [address] [place], [address] Basophils/100 WBC (Bld) 0.6 % Normal 0-1 [facility] Comment on above: Performed By: #### L 100.0100, L500.2500 ####[facility] [address] [place], [address] Eosinophils/100 WBC (Bld) 2.4 % Normal 0-5 [facility] Comment on above: Performed By: #### L 100.0100, L500.2500 ####[facility] [address] [place], [address] Erythrocyte distribution width (RBC) [Ratio] 14.0 % Normal 11.6-14.6 [facility] Comment on above: Performed By: #### L 100.0100, L500.2500 ####[facility] [address] [place], [address] Hematocrit (Bld) [Volume fraction] 33.7 % Low 37-47 [facility] Comment on above: Performed By: #### L 100.0100, L500.2500 ####[facility] [address] [place], [address] Hemoglobin (Bld) [Mass/Vol] 11.2 g/dL Low 12.0-15.0 [facility] Comment on above: Performed By: #### L 100.0100, L500.2500 ####[facility] [address] [place], [address] IG% 0.300 Normal 0.0-0.9 [facility] Comment on above: Result Comment: IG% - Immature Granulocytes (promyelocytes, myelocytes andmetamyelocytes) > 1% indicates that a LEFT SHIFT is Present. Performed By: #### L 100.0100, L500.2500 ####[facility] [address] [place], [address] Lymphocytes/100 WBC (Bld) 24.4 % Normal 19-41 [facility] Comment on above: Performed By: #### L 100.0100, L500.2500 ####[facility] [address] [place], [address] MCH (RBC) [Entitic mass] 28.2 pg Normal 27.0-32.0 [facility] Comment on above: Performed By: #### L 100.0100, L500.2500 ####[facility] [address] [place], [address] MCHC (RBC) [Mass/Vol] 33.2 g/dL Normal 32-36 [facility] Comment on above: Performed By: #### L 100.0100, L500.2500 ####[facility] [address] [place], [address] MCV (RBC) [Entitic vol] 84.9 fL Normal 81-99 [facility] Comment on above: Performed By: #### L 100.0100, L500.2500 ####[facility] [address] [place], [address] Monocytes/100 WBC (Bld) 7.6 % Normal 0-10 [facility] Comment on above: Performed By: #### L 100.0100, L500.2500 ####[facility] [address] [place], [address] Neutrophils/100 WBC (Bld) 64.7 % Normal 47-70 [facility] Comment on above: Performed By: #### L 100.0100, L500.2500 ####[facility] [address] [place], [address] Nucleated RBC (Bld) [#/Vol] 0 10*3/uL Normal 0-5 [facility] Comment on above: Performed By: #### L 100.0100, L500.2500 ####[facility] [address] [place], [address] Platelet mean volume (Bld) [Entitic vol] 9.3 fL Normal 6.2-12.0 [facility] Comment on above: Performed By: #### L 100.0100, L500.2500 ####[facility] [address] [place], [address] Platelets (Bld) [#/Vol] 205 10*3/uL Normal 150-450 [facility] Comment on above: Performed By: #### L 100.0100, L500.2500 ####[facility] [address] [place], [address] RBC (Bld) [#/Vol] 3.97 10*6/uL Low 4.2-5.4 [facility] Comment on above: Performed By: #### L 100.0100, L500.2500 ####[facility] [address] [place], [address] RDW SD 43.4 fl Normal 35.1-43.9 [facility] Comment on above: Performed By: #### L 100.0100, L500.2500 ####[facility] [address] [place], [address] WBC (Bld) [#/Vol] 9.0 10*3/uL Normal 4.4-11.0 [facility] Comment on above: Performed By: #### L 100.0100, L500.2500 ####[facility] [address] [place], [address] Clostridium difficile detect ion by polymerase chain reactionOrdered By: Latricia Burdick on 08-29-2024 C. difficile DNA CRISSY+probe Ql (Unsp spec) [facility] ALP [Catalytic activity/Vol] Ordered By: Nicole Trujillo on 08-28-2024 Serum or plasma alkaline phosphatase measurement 115 U/L High 35-104 [facility] ALT [Catalytic activity/Vol] Ordered By: Nicole Trujillo on 08-28-2024 Serum or plasma alanine aminotransferase (ALT) measurement 11 U/L <35 [facility] Albumin [Mass/Vol]Ordered By : Nicole Trujillo on 08-28-2024 Serum or plasma albumin measurement (mass/volume) 3.2 g/dL Low 3.5-5.0 [facility] Albumin/Globulin [Mass ratio ]Ordered By: Nicole Trujillo on 08-28-2024 Serum or plasma albumin/globulin mass ratio 1.1 RATIO 0.9-2.4 [facility] Bedside Glucoseon 08-28-2024 FINGERSTICK GLU 182 mg/dL High 74-106 [facility] Comment on above: Result Comment: TALIA GEMENT OF PATIENT CARE PER NURSING PROTOCOL Performed By: #### L 501.080 ####[facility] [address] [place], [address] FINGERSTICK GLU 176 mg/dL High 74-106 [facility] Comment on above: Result Comment: TALIA GEMENT OF PATIENT CARE PER NURSING PROTOCOL Performed By: #### L 501.080 ####[facility] [address] [facility] [address] FINGERSTICK GLU 192 mg/dL High 74-106 [facility] Comment on above: Result Comment: TALIA GEMENT OF PATIENT CARE PER NURSING PROTOCOL Performed By: #### L 501.080 ####[facility] [address] [place], [address] FINGERSTICK GLU 157 mg/dL High 74-106 [facility] Comment on above: Result Comment: TALIA CHAMBERS OF PATIENT CARE PER NURSING PROTOCOL Performed By: #### L 501.080 ####[facility] [address] [place], [address] Bilirubin, totalOrdered By: Nicole Trujillo on 08-28-2024 Bilirubin [Mass/Vol] 0.53 mg/dL 0.00-1.30 [facility] Bilirubin, total 0.53 mg/dL 0.00-1.30 [facility] CBC W/Diff, Automatedon 08-03 Absolute Lymph 1.79 X10 3/uL Normal 0.83-4.51 [facility] Comment on above: Performed By: #### L 501.2300, L100.0100, L500.4050, L501.5200 ####[facility] [address] [place], [address] Absolute Neut 5.2 X10 3/uL Normal 2.0-7.7 [facility] Comment on above: Performed By: #### L 501.2300, L100.0100, L500.4050, L501.5200 ####[facility] [address] [place], [address] Basophils/100 WBC (Bld) 0.5 % Normal 0-1 [facility] Comment on above: Performed By: #### L 501.2300, L100.0100, L500.4050, L501.5200 ####[facility] [address] [place], [address] Eosinophils/100 WBC (Bld) 3.0 % Normal 0-5 [facility] Comment on above: Performed By: #### L 501.2300, L100.0100, L500.4050, L501.5200 ####[facility] [address] [place], [address] Erythrocyte distribution width (RBC) [Ratio] 14.3 % Normal 11.6-14.6 [facility] Comment on above: Performed By: #### L 501.2300, L100.0100, L500.4050, L501.5200 ####[facility] [address] [place], [address] Hematocrit (Bld) [Volume fraction] 34.8 % Low 37-47 [facility] Comment on above: Performed By: #### L 501.2300, L100.0100, L500.4050, L501.5200 ####[facility] [address] [place], [address] Hemoglobin (Bld) [Mass/Vol] 11.7 g/dL Low 12.0-15.0 [facility] Comment on above: Performed By: #### L 501.2300, L100.0100, L500.4050, L501.5200 ####[facility] [address] [place], [address] IG% 0.400 Normal 0.0-0.9 [facility] Comment on above: Result Comment: IG% - Immature Granulocytes (promyelocytes, myelocytes andmetamyelocytes) > 1% indicates that a LEFT SHIFT is Present. Performed By: #### L 501.2300, L100.0100, L500.4050, L501.5200 ####[facility] [address] [place], [address] Lymphocytes/100 WBC (Bld) 22.7 % Normal 19-41 [facility] Comment on above: Performed By: #### L 501.2300, L100.0100, L500.4050, L501.5200 ####[facility] [address] [place], [address] MCH (RBC) [Entitic mass] 27.8 pg Normal 27.0-32.0 [facility] Comment on above: Performed By: #### L 501.2300, L100.0100, L500.4050, L501.5200 ####[facility] [address] [place], [address] MCHC (RBC) [Mass/Vol] 33.6 g/dL Normal 32-36 [facility] Comment on above: Performed By: #### L 501.2300, L100.0100, L500.4050, L501.5200 ####[facility] [address] [place], [address] MCV (RBC) [Entitic vol] 82.7 fL Normal 81-99 [facility] Comment on above: Performed By: #### L 501.2300, L100.0100, L500.4050, L501.5200 ####[facility] [address] [place], [address] Monocytes/100 WBC (Bld) 6.7 % Normal 0-10 [facility] Comment on above: Performed By: #### L 501.2300, L100.0100, L500.4050, L501.5200 ####[facility] [address] [place], [address] Neutrophils/100 WBC (Bld) 66.7 % Normal 47-70 [facility] Comment on above: Performed By: #### L 501.2300, L100.0100, L500.4050, L501.5200 ####[facility] [address] [place], [address] Nucleated RBC (Bld) [#/Vol] 0.3 10*3/uL Normal 0-5 [facility] Comment on above: Performed By: #### L 501.2300, L100.0100, L500.4050, L501.5200 ####[facility] [address] [place], [address] Platelet mean volume (Bld) [Entitic vol] 9.8 fL Normal 6.2-12.0 [facility] Comment on above: Performed By: #### L 501.2300, L100.0100, L500.4050, L501.5200 ####[facility] [address] [place], [address] Platelets (Bld) [#/Vol] 203 10*3/uL Normal 150-450 [facility] Comment on above: Performed By: #### L 501.2300, L100.0100, L500.4050, L501.5200 ####[facility] [address] [place], [address] RBC (Bld) [#/Vol] 4.21 10*6/uL Normal 4.2-5.4 [facility] Comment on above: Performed By: #### L 501.2300, L100.0100, L500.4050, L501.5200 ####[facility] [address] [place], [address] RDW SD 42.4 fl Normal 35.1-43.9 [facility] Comment on above: Performed By: #### L 501.2300, L100.0100, L500.4050, L501.5200 ####[facility] [address] [place], [address] WBC (Bld) [#/Vol] 7.9 10*3/uL Normal 4.4-11.0 [facility] Comment on above: Performed By: #### L 501.2300, L100.0100, L500.4050, L501.5200 ####[facility] [address] [place], [address] Comprehensive Metabolic Prof [facility] 08-28-2024 Albumin [Mass/Vol] 3.2 g/dL Low 3.5-5.0 [facility] Comment on above: Performed By: #### L 501.2300, L100.0100, L500.4050, L501.5200 ####[facility] [address] [place], [address] Albumin/Globulin [Mass ratio] 1.1 {ratio} Normal 0.9-2.4 [facility] Comment on above: Performed By: #### L 501.2300, L100.0100, L500.4050, L501.5200 ####[facility] [address] [place], [address] ALK PHOS 115 U/L High 35-104 [facility] Comment on above: Performed By: #### L 501.2300, L100.0100, L500.4050, L501.5200 ####[facility] [address] [place], [address] ALT [Catalytic activity/Vol] 11 U/L Normal <=34 [facility] Comment on above: Performed By: #### L 501.2300, L100.0100, L500.4050, L501.5200 ####[facility] [address] [place], [address] AST [Catalytic activity/Vol] 20 U/L Normal <=31 [facility] Comment on above: Performed By: #### L 501.2300, L100.0100, L500.4050, L501.5200 ####[facility] [address] [place], [address] Bilirubin [Mass/Vol] 0.53 mg/dL Normal 0.00-1.30 [facility] Comment on above: Performed By: #### L 501.2300, L100.0100, L500.4050, L501.5200 ####[facility] [address] [place], [address] BUN/CRE 27.2 RATIO High 10-20 [facility] Comment on above: Performed By: #### L 501.2300, L100.0100, L500.4050, L501.5200 ####[facility] [address] [place], [address] Calcium [Mass/Vol] 9.1 mg/dL Normal 7.6-11.0 [facility] Comment on above: Performed By: #### L 501.2300, L100.0100, L500.4050, L501.5200 ####[facility] [address] [place], [address] Chloride [Moles/Vol] 104 mmol/L Normal 98-108 [facility] Comment on above: Performed By: #### L 501.2300, L100.0100, L500.4050, L501.5200 ####[facility] [address] [place], [address] CO2 [Moles/Vol] 21.5 mmol/L Normal 21.0-32.0 [facility] Comment on above: Performed By: #### L 501.2300, L100.0100, L500.4050, L501.5200 ####[facility] [address] [place], [address] Creatinine [Mass/Vol] 0.71 mg/dL Normal 0.70-1.20 [facility] Comment on above: Performed By: #### L 501.2300, L100.0100, L500.4050, L501.5200 ####[facility] [address] [place], [address] ECRCL 99.53 ml/min Normal 50-250 [facility] Comment on above: Performed By: #### L 501.2300, L100.0100, L500.4050, L501.5200 ####[facility] [address] [place], [address] GAP 10 Normal 5-15 [facility] Comment on above: Performed By: #### L 501.2300, L100.0100, L500.4050, L501.5200 ####[facility] [address] [place], [address] GFR/1.73 sq M.predicted among non-blacks MDRD (S/P/Bld) [Vol rate/Area] 101 mL/min/{1.73_m2} Normal >60 [facility] Comment on above: Result Comment: mL/m in/1.73m2 CKD-EPI Creatinine Equation (2020) Performed By: #### L 501.2300, L100.0100, L500.4050, L501.5200 ####[facility] [address] [place], [address] Globulin (S) [Mass/Vol] 3.0 g/dL Normal 2.2-4.2 [facility] Comment on above: Performed By: #### L 501.2300, L100.0100, L500.4050, L501.5200 ####[facility] [address] [place], [address] Glucose [Mass/Vol] 159 mg/dL High 70-99 [facility] Comment on above: Performed By: #### L 501.2300, L100.0100, L500.4050, L501.5200 ####[facility] [address] [place], [address] Potassium [Moles/Vol] 3.8 mmol/L Normal 3.3-5.1 [facility] Comment on above: Result Comment: Hemo lysis present, Results??could be affected.?? Performed By: #### L 501.2300, L100.0100, L500.4050, L501.5200 ####[facility] [address] [place], [address] Sodium [Moles/Vol] 135 mmol/L Normal 133-145 [facility] Comment on above: Performed By: #### L 501.2300, L100.0100, L500.4050, L501.5200 ####[facility] [address] [place], [address] T PROT 6.3 g/dL Normal 5.9-8.4 [facility] Comment on above: Performed By: #### L 501.2300, L100.0100, L500.4050, L501.5200 ####[facility] [address] [place], [address] Urea nitrogen [Mass/Vol] 19 mg/dL Normal 4-19 [facility] Comment on above: Performed By: #### L 501.2300, L100.0100, L500.4050, L501.5200 ####[facility] [address] [place], [address] Magnesiumon 08-28-2024 Magnesium [Mass/Vol] 2.1 mg/dL Normal 1.5-2.2 [facility] Comment on above: Performed By: #### L 501.2300, L100.0100, L500.4050, L501.5200 ####[facility] [address] [place], [address] No Panel InformationOrdered By: Nicole Trujillo on 08-28-2024 20 U/L <32 [facility] Phosphoruson 08-28-2024 Phosphate [Mass/Vol] 2.7 mg/dL Normal 2.7-4.5 [facility] Comment on above: Performed By: #### L 501.2300, L100.0100, L500.4050, L501.5200 ####[facility] [address] [place], [address] Serum globulin measurementOr dered By: Nicole Trujillo on 08-28-2024 Globulin (S) [Mass/Vol] 3.0 g/dL 2.2-4.2 [facility] Serum globulin measurement 3.0 g/dL 2.2-4.2 [facility] Serum or plasma alanine hamilton otransferase (ALT) measurementOrdered By: Nicole Trujillo on 08-28-2024 ALT [Catalytic activity/Vol] 11 U/L <35 [facility] Serum or plasma albumin xiomraa urement (mass/volume)Ordered By: Nicole Trujillo on 08-28-2024 Albumin [Mass/Vol] 3.2 g/dL Low 3.5-5.0 [facility] Serum or plasma albumin/glob ulin mass ratioOrdered By: Nicole Trujillo on 08-28-2024 Albumin/Globulin [Mass ratio] 1.1 {ratio} 0.9-2.4 [facility] Serum or plasma alkaline sabiha sphatase measurementOrdered By: Nicole Trujillo on 08-28-2024 ALP [Catalytic activity/Vol] 115 U/L High 35-104 [facility] Total proteinOrdered By: Jenae Trujillo on 08-28-2024 Protein [Mass/Vol] 6.3 g/dL 5.9-8.4 [facility] Total protein 6.3 g/dL 5.9-8.4 [facility] Activated partial thrombopla stin time (aPTT) in platelet poor plasma by coagulation aOrdered By: Brenda Posadas on 08-27-2024 aPTT Coag (PPP) [Time] 44.8 s High 24.1-36.2 [facility] Ankle Brachial Indexon 08-27 Ankle Brachial Index Normal [facility] Arterial study reportOrdered By: Riccardo Ng on 08-27-2024 Noninvasive arteriosclerosis study report [facility] Work Phone: Basic Metabolic Profile (BMP )on 08-27-2024 BUN/CRE 15.2 RATIO Normal 10-20 [facility] Comment on above: Performed By: #### L 500.2500 ####[facility] [address] [place], [place], [address] Calcium [Mass/Vol] 8.8 mg/dL Normal 7.6-11.0 [facility] Comment on above: Performed By: #### L 500.2500 ####[facility] [address] [place], [address] Chloride [Moles/Vol] 103 mmol/L Normal 98-108 [facility] Comment on above: Performed By: #### L 500.2500 ####[facility] [address] [place], [address] CO2 [Moles/Vol] 24.9 mmol/L Normal 21.0-32.0 [facility] Comment on above: Performed By: #### L 500.2500 ####[facility] [address] [place], [address] Creatinine [Mass/Vol] 0.79 mg/dL Normal 0.70-1.20 [facility] Comment on above: Performed By: #### L 500.2500 ####[facility] [address] [place], [address] ECRCL 89.03 ml/min Normal 50-250 [facility] Comment on above: Performed By: #### L 500.2500 ####[facility] [address] [place], [address] GAP 10 Normal 5-15 [facility] Comment on above: Performed By: #### L 500.2500 ####[facility] [address] [place], [address] GFR/1.73 sq M.predicted among non-blacks MDRD (S/P/Bld) [Vol rate/Area] 89 mL/min/{1.73_m2} Normal >60 [facility] Comment on above: Result Comment: mL/m in/1.73m2 CKD-EPI Creatinine Equation (2020) Performed By: #### L 500.2500 ####[facility] [address] [place], [address] Glucose [Mass/Vol] 274 mg/dL High 70-99 [facility] Comment on above: Performed By: #### L 500.2500 ####[facility] [address] [place], [address] Potassium [Moles/Vol] 2.8 mmol/L Low 3.3-5.1 [facility] Comment on above: Performed By: #### L 500.2500 ####[facility] [address] [place], [address] Sodium [Moles/Vol] 137 mmol/L Normal 133-145 [facility] Comment on above: Performed By: #### L 500.2500 ####[facility] [address] [place], [address] Urea nitrogen [Mass/Vol] 12 mg/dL Normal 4-19 [facility] Comment on above: Performed By: #### L 500.2500 ####[facility] [address] [place], [address] Bedside Glucoseon 08-27-2024 FINGERSTICK GLU 203 mg/dL High 74-106 [facility] Comment on above: Result Comment: TALIA GEMENT OF PATIENT CARE PER NURSING PROTOCOL Performed By: #### L 501.080 ####[facility] [address] [place], [address] FINGERSTICK GLU 205 mg/dL High 74-106 [facility] Comment on above: Result Comment: TALIA GEMENT OF PATIENT CARE PER NURSING PROTOCOL Performed By: #### L 501.080 ####[facility] [address] [place], [address] FINGERSTICK GLU 225 mg/dL High 74-106 [facility] Comment on above: Result Comment: TALIA GEMENT OF PATIENT CARE PER NURSING PROTOCOL Performed By: #### L 501.080 ####[facility] [address] [place], [address] CBC W/Diff, Automatedon 03-2 Absolute Lymph 1.77 X10 3/uL Normal 0.83-4.51 [facility] Comment on above: Performed By: #### L 300.3900, L100.0100, L501.9520, L500.4050 ####[facility] [address] [place], [address] Absolute Neut 6.2 X10 3/uL Normal 2.0-7.7 [facility] Comment on above: Performed By: #### L 300.3900, L100.0100, L501.9520, L500.4050 ####[facility] [address] [place], [address] Basophils/100 WBC (Bld) 0.7 % Normal 0-1 [facility] Comment on above: Performed By: #### L 300.3900, L100.0100, L501.9520, L500.4050 ####[facility] [address] [place], [address] Eosinophils/100 WBC (Bld) 1.6 % Normal 0-5 [facility] Comment on above: Performed By: #### L 300.3900, L100.0100, L501.9520, L500.4050 ####[facility] [address] [place], [address] Erythrocyte distribution width (RBC) [Ratio] 13.7 % Normal 11.6-14.6 [facility] Comment on above: Performed By: #### L 300.3900, L100.0100, L501.9520, L500.4050 ####[facility] [address] [place], [address] Hematocrit (Bld) [Volume fraction] 33.8 % Low 37-47 [facility] Comment on above: Performed By: #### L 300.3900, L100.0100, L501.9520, L500.4050 ####[facility] [address] [place], [address] Hemoglobin (Bld) [Mass/Vol] 11.6 g/dL Low 12.0-15.0 [facility] Comment on above: Performed By: #### L 300.3900, L100.0100, L501.9520, L500.4050 ####[facility] [address] [place], [address] IG% 0.300 Normal 0.0-0.9 [facility] Comment on above: Result Comment: IG% - Immature Granulocytes (promyelocytes, myelocytes andmetamyelocytes) > 1% indicates that a LEFT SHIFT is Present. Performed By: #### L 300.3900, L100.0100, L501.9520, L500.4050 ####[facility] [address] [place], [address] Lymphocytes/100 WBC (Bld) 20.6 % Normal 19-41 [facility] Comment on above: Performed By: #### L 300.3900, L100.0100, L501.9520, L500.4050 ####[facility] [address] [place], [address] MCH (RBC) [Entitic mass] 28.2 pg Normal 27.0-32.0 [facility] Comment on above: Performed By: #### L 300.3900, L100.0100, L501.9520, L500.4050 ####[facility] [address] [place], [address] MCHC (RBC) [Mass/Vol] 34.3 g/dL Normal 32-36 [facility] Comment on above: Performed By: #### L 300.3900, L100.0100, L501.9520, L500.4050 ####[facility] [address] [place], [address] MCV (RBC) [Entitic vol] 82.0 fL Normal 81-99 [facility] Comment on above: Performed By: #### L 300.3900, L100.0100, L501.9520, L500.4050 ####[facility] [address] [place], [address] Monocytes/100 WBC (Bld) 4.4 % Normal 0-10 [facility] Comment on above: Performed By: #### L 300.3900, L100.0100, L501.9520, L500.4050 ####[facility] [address] [place], [address] Neutrophils/100 WBC (Bld) 72.4 % High 47-70 [facility] Comment on above: Performed By: #### L 300.3900, L100.0100, L501.9520, L500.4050 ####[facility] [address] [place], [address] Nucleated RBC (Bld) [#/Vol] 0 10*3/uL Normal 0-5 [facility] Comment on above: Performed By: #### L 300.3900, L100.0100, L501.9520, L500.4050 ####[facility] [address] [place], [address] Platelet mean volume (Bld) [Entitic vol] 9.2 fL Normal 6.2-12.0 [facility] Comment on above: Performed By: #### L 300.3900, L100.0100, L501.9520, L500.4050 ####[facility] [address] [place], [address] Platelets (Bld) [#/Vol] 229 10*3/uL Normal 150-450 [facility] Comment on above: Performed By: #### L 300.3900, L100.0100, L501.9520, L500.4050 ####[facility] [address] [place], [address] RBC (Bld) [#/Vol] 4.12 10*6/uL Low 4.2-5.4 [facility] Comment on above: Performed By: #### L 300.3900, L100.0100, L501.9520, L500.4050 ####[facility] [address] [place], [address] RDW SD 40.4 fl Normal 35.1-43.9 [facility] Comment on above: Performed By: #### L 300.3900, L100.0100, L501.9520, L500.4050 ####[facility] [address] [place], [address] WBC (Bld) [#/Vol] 8.6 10*3/uL Normal 4.4-11.0 [facility] Comment on above: Performed By: #### L 300.3900, L100.0100, L501.9520, L500.4050 ####[facility] [address] [place], [address] Comprehensive Metabolic Prof [facility] 08-27-2024 Albumin [Mass/Vol] 3.1 g/dL Low 3.5-5.0 [facility] Comment on above: Performed By: #### L 300.3900, L100.0100, L501.9520, L500.4050 ####[facility] [address] [place], [address] Albumin/Globulin [Mass ratio] 1.1 {ratio} Normal 0.9-2.4 [facility] Comment on above: Performed By: #### L 300.3900, L100.0100, L501.9520, L500.4050 ####[facility] [address] [place], [address] ALK PHOS 117 U/L High 35-104 [facility] Comment on above: Performed By: #### L 300.3900, L100.0100, L501.9520, L500.4050 ####[facility] [address] [place], [address] ALT [Catalytic activity/Vol] 13 U/L Normal <=34 [facility] Comment on above: Performed By: #### L 300.3900, L100.0100, L501.9520, L500.4050 ####[facility] [address] [place], [address] AST [Catalytic activity/Vol] 20 U/L Normal <=31 [facility] Comment on above: Performed By: #### L 300.3900, L100.0100, L501.9520, L500.4050 ####[facility] [address] [place], [address] Bilirubin [Mass/Vol] 0.61 mg/dL Normal 0.00-1.30 [facility] Comment on above: Performed By: #### L 300.3900, L100.0100, L501.9520, L500.4050 ####[facility] [address] [place], [address] BUN/CRE 16.7 RATIO Normal 10-20 [facility] Comment on above: Performed By: #### L 300.3900, L100.0100, L501.9520, L500.4050 ####[facility] [address] [place], [address] Calcium [Mass/Vol] 8.8 mg/dL Normal 7.6-11.0 [facility] Comment on above: Performed By: #### L 300.3900, L100.0100, L501.9520, L500.4050 ####[facility] [address] [place], [address] Chloride [Moles/Vol] 102 mmol/L Normal 98-108 [facility] Comment on above: Performed By: #### L 300.3900, L100.0100, L501.9520, L500.4050 ####[facility] [address] [place], [address] CO2 [Moles/Vol] 23.8 mmol/L Normal 21.0-32.0 [facility] Comment on above: Performed By: #### L 300.3900, L100.0100, L501.9520, L500.4050 ####[facility] [address] [place], [address] Creatinine [Mass/Vol] 0.65 mg/dL Low 0.70-1.20 [facility] Comment on above: Performed By: #### L 300.3900, L100.0100, L501.9520, L500.4050 ####[facility] [address] [place], [address] ECRCL 107.70 ml/min Normal 50-250 [facility] Comment on above: Performed By: #### L 300.3900, L100.0100, L501.9520, L500.4050 ####[facility] [address] [place], [address] GAP 9 Normal 5-15 [facility] Comment on above: Performed By: #### L 300.3900, L100.0100, L501.9520, L500.4050 ####[facility] [address] [place], [address] GFR/1.73 sq M.predicted among non-blacks MDRD (S/P/Bld) [Vol rate/Area] 105 mL/min/{1.73_m2} Normal >60 [facility] Comment on above: Result Comment: mL/m in/1.73m2 CKD-EPI Creatinine Equation (2020) Performed By: #### L 300.3900, L100.0100, L501.9520, L500.4050 ####[facility] [address] [place], [address] Globulin (S) [Mass/Vol] 2.9 g/dL Normal 2.2-4.2 [facility] Comment on above: Performed By: #### L 300.3900, L100.0100, L501.9520, L500.4050 ####[facility] [address] [place], [address] Glucose [Mass/Vol] 293 mg/dL High 70-99 [facility] Comment on above: Performed By: #### L 300.3900, L100.0100, L501.9520, L500.4050 ####[facility] [address] [place], [address] Potassium [Moles/Vol] 2.5 mmol/L Invalid Interpretation Code 3.3-5.1 [facility] Comment on above: Result Comment: Crit ical Result(s) Called at:0352 by:??MARTITA FARLEY Results read back by same. Performed By: #### L 300.3900, L100.0100, L501.9520, L500.4050 ####[facility] [address] [place], [address] Sodium [Moles/Vol] 136 mmol/L Normal 133-145 [facility] Comment on above: Performed By: #### L 300.3900, L100.0100, L501.9520, L500.4050 ####[facility] [address] [place], [address] T PROT 5.9 g/dL Normal 5.9-8.4 [facility] Comment on above: Performed By: #### L 300.3900, L100.0100, L501.9520, L500.4050 ####[facility] [address] [place], [address] Urea nitrogen [Mass/Vol] 11 mg/dL Normal 4-19 [facility] Comment on above: Performed By: #### L 300.3900, L100.0100, L501.9520, L500.4050 ####[facility] [address] [place], [address] Consultation - Surgicalon Consultation - Surgical Normal [facility] Electrocardiogram reportOrde red By: Alli Brito on 08-27-2024 EKG study [facility] Work Phone: International normalized rat io (INR) calculationOrdered By: Brenda Posadas on 08-27-2024 International normalized ratio (INR) calculation 1.0 [facility] Magnetic resonance imaging r eportOrdered By: Latricia Vargas on 08-27-2024 Study report [facility] Partial Thromboplast Timeon 08-27-2024 aPTT Coag (Bld) [Time] 44.8 s High 24.1-36.2 [facility] Comment on above: Performed By: #### L 300.4310 ####[facility] [address] [place], [address] aPTT Coag (Bld) [Time] 79.3 s High 24.1-36.2 [facility] Comment on above: Performed By: #### L 300.4310 ####[facility] [address] [place], [address] Prothrombin Time w/INRon INR Coag (PPP) [Relative time] 1.0 {INR} Normal [facility] Comment on above: Performed By: #### L 300.3900, L100.0100, L501.9520, L500.4050 ####[facility] [address] [place], [address] PT Coag (PPP) [Time] 13.2 s Normal 11.7-14.9 [facility] Comment on above: Performed By: #### L 300.3900, L100.0100, L501.9520, L500.4050 ####[facility] [address] [place], [place], [address] Prothrombin timeOrdered By: Brenda Posadas on 08-27-2024 PT Coag (PPP) [Time] 13.2 s 11.7-14.9 [facility] Prothrombin time 13.2 SECONDS 11.7-14.9 [facility] Spine Lumbar (Routine)on Spine Lumbar (Routine) Normal [facility] TSH DL <= 0.005 mIU/L QnOrde red By: Brenda Posadas on 08-27-2024 TSH Qn 1.180 uIU/mL 0.300-4.20 0 [facility] Serum or plasma thyroid stimulating hormone (TSH) measurement by high sensitivity met 1.180 uIU/mL 0.300-4.20 0 [facility] Thyroid Stim Hormone (TSH)on 08-27-2024 TSH 1.180 uIU/mL Normal 0.300-4.20 0 [facility] Comment on above: Performed By: #### L 300.3900, L100.0100, L501.9520, L500.4050 ####[facility] [address] [place], [place], [address] aPTT Coag (PPP) [Time]Ordere d By: Brenda Posadas on 08-27-2024 Activated partial thromboplastin time (aPTT) in platelet poor plasma by coagulation a 44.8 Seconds High 24.1-36.2 [facility] 12 Lead EKGon 08-26-2024 12 Lead EKG Normal [facility] ALP [Catalytic activity/Vol] Ordered By: Jeison Abrams on 08-26-2024 Serum or plasma alkaline phosphatase measurement 134 U/L High 35-104 [facility] ALT [Catalytic activity/Vol] Ordered By: Jeison Abrams on 08-26-2024 Serum or plasma alanine aminotransferase (ALT) measurement 14 U/L <35 [facility] Absolute neutrophil countOrd ered By: Jeison Abrams on 08-26-2024 Absolute neutrophil count 5.2 X10^3/uL 2.0-7.7 [facility] Albumin [Mass/Vol]Ordered By : Jeison Abrams on 08-26-2024 Serum or plasma albumin measurement (mass/volume) 3.6 g/dL 3.5-5.0 [facility] Anion gap [Moles/Vol]Ordered By: Jeison Abrams on 08-26-2024 Anion gap in Serum or Plasma 11 - [facility] BUN/creatinine ratioOrdered By: Jeison Abrams on 08-26-2024 BUN/creatinine ratio 14.1 RATIO - [facility] Basic Metabolic Profile (BMP )on 08-26-2024 BUN/CRE 14.1 RATIO Normal - [facility] Comment on above: Performed By: #### L 300.3900, L503.7505, L500.2500, L100.0100, L300.4310, L503.6005, L500.3400 ####[facility] [address] [place], [address] Calcium [Mass/Vol] 9.2 mg/dL Normal 7.6-11.0 [facility] Comment on above: Performed By: #### L 300.3900, L503.7505, L500.2500, L100.0100, L300.4310, L503.6005, L500.3400 ####[facility] [address] [place], [address] Chloride [Moles/Vol] 102 mmol/L Normal 98-108 [facility] Comment on above: Performed By: #### L 300.3900, L503.7505, L500.2500, L100.0100, L300.4310, L503.6005, L500.3400 ####[facility] [address] [place], [address] CO2 [Moles/Vol] 22.3 mmol/L Normal 21.0-32.0 [facility] Comment on above: Performed By: #### L 300.3900, L503.7505, L500.2500, L100.0100, L300.4310, L503.6005, L500.3400 ####[facility] [address] [place], [address] Creatinine [Mass/Vol] 0.74 mg/dL Normal 0.70-1.20 [facility] Comment on above: Performed By: #### L 300.3900, L503.7505, L500.2500, L100.0100, L300.4310, L503.6005, L500.3400 ####[facility] [address] [place], [address] ECRCL 97.71 ml/min Normal 50-250 [facility] Comment on above: Performed By: #### L 300.3900, L503.7505, L500.2500, L100.0100, L300.4310, L503.6005, L500.3400 ####[facility] [address] [place], [place], [phone] GAP 11 Normal 5-15 [facility] Comment on above: Performed By: #### L 300.3900, L503.7505, L500.2500, L100.0100, L300.4310, L503.6005, L500.3400 ####[facility] [address] [place], [address] GFR/1.73 sq M.predicted among non-blacks MDRD (S/P/Bld) [Vol rate/Area] 97 mL/min/{1.73_m2} Normal >60 [facility] Comment on above: Result Comment: mL/m in/1.73m2 CKD-EPI Creatinine Equation (2020) Performed By: #### L 300.3900, L503.7505, L500.2500, L100.0100, L300.4310, L503.6005, L500.3400 ####[facility] [address] [place], [address] Glucose [Mass/Vol] 315 mg/dL High 70-99 [facility] Comment on above: Performed By: #### L 300.3900, L503.7505, L500.2500, L100.0100, L300.4310, L503.6005, L500.3400 ####[facility] [address] [place], [address] Potassium [Moles/Vol] 3.4 mmol/L Normal 3.3-5.1 [facility] Comment on above: Result Comment: Hemo lysis present, Results??could be affected.?? Performed By: #### L 300.3900, L503.7505, L500.2500, L100.0100, L300.4310, L503.6005, L500.3400 ####[facility] [address] [place], [address] Sodium [Moles/Vol] 135 mmol/L Normal 133-145 [facility] Comment on above: Performed By: #### L 300.3900, L503.7505, L500.2500, L100.0100, L300.4310, L503.6005, L500.3400 ####[facility] [address] [place], [address] Urea nitrogen [Mass/Vol] 10 mg/dL Normal 4-19 [facility] Comment on above: Performed By: #### L 300.3900, L503.7505, L500.2500, L100.0100, L300.4310, L503.6005, L500.3400 ####[facility] [address] [place], [address] Basophil percentageOrdered B y: Jeison Abrams on 08-26-2024 Basophil percentage 0.7 % 0-1 [facility] Bedside Glucoseon 08-26-2024 FINGERSTICK GLU 193 mg/dL High 74-106 [facility] Comment on above: Result Comment: TALIA CHAMBERS OF PATIENT CARE PER NURSING PROTOCOL Performed By: #### L 501.080 ####[facility] [address] [place], [place], [phone] Bilirubin directOrdered By: Jeison Abrams on 08-26-2024 Bilirubin.direct [Mass/Vol] 0.08 mg/dL 0.00-0.30 [facility] Bilirubin, totalOrdered By: Jeison Abrams on 08-26-2024 Bilirubin, total 0.52 mg/dL 0.00-1.30 [facility] Bilirubin.direct [Mass/Vol]O rdered By: Jeison Abrams on 08-26-2024 Bilirubin direct 0.08 mg/dL 0.00-0.30 [facility] CBC W/Diff, Automatedon 08-03 Absolute Lymph 1.57 X10 3/uL Normal 0.83-4.51 [facility] Comment on above: Performed By: #### L 300.3900, L503.7505, L500.2500, L100.0100, L300.4310, L503.6005, L500.3400 ####[facility] [address] [place], [place], [phone] Absolute Neut 5.2 X10 3/uL Normal 2.0-7.7 [facility] Comment on above: Performed By: #### L 300.3900, L503.7505, L500.2500, L100.0100, L300.4310, L503.6005, L500.3400 ####[facility] [address], [address] Basophils/100 WBC (Bld) 0.7 % Normal 0-1 [facility] Comment on above: Performed By: #### L 300.3900, L503.7505, L500.2500, L100.0100, L300.4310, L503.6005, L500.3400 ####[facility] [address] [place], [address] Eosinophils/100 WBC (Bld) 2.8 % Normal 0-5 [facility] Comment on above: Performed By: #### L 300.3900, L503.7505, L500.2500, L100.0100, L300.4310, L503.6005, L500.3400 ####[facility] [address] [place], [address] Erythrocyte distribution width (RBC) [Ratio] 13.6 % Normal 11.6-14.6 [facility] Comment on above: Performed By: #### L 300.3900, L503.7505, L500.2500, L100.0100, L300.4310, L503.6005, L500.3400 ####[facility] [address] [place], [address] Hematocrit (Bld) [Volume fraction] 40.6 % Normal 37-47 [facility] Comment on above: Performed By: #### L 300.3900, L503.7505, L500.2500, L100.0100, L300.4310, L503.6005, L500.3400 ####[facility] [address] [place], [address] Hemoglobin (Bld) [Mass/Vol] 13.7 g/dL Normal 12.0-15.0 [facility] Comment on above: Performed By: #### L 300.3900, L503.7505, L500.2500, L100.0100, L300.4310, L503.6005, L500.3400 ####[facility] [address] [place], [address] IG% 0.300 Normal 0.0-0.9 [facility] Comment on above: Result Comment: IG% - Immature Granulocytes (promyelocytes, myelocytes andmetamyelocytes) > 1% indicates that a LEFT SHIFT is Present. Performed By: #### L 300.3900, L503.7505, L500.2500, L100.0100, L300.4310, L503.6005, L500.3400 ####[facility] [address] [place], [address] Lymphocytes/100 WBC (Bld) 20.9 % Normal 19-41 [facility] Comment on above: Performed By: #### L 300.3900, L503.7505, L500.2500, L100.0100, L300.4310, L503.6005, L500.3400 ####[facility] [address] [place], [address] MCH (RBC) [Entitic mass] 27.8 pg Normal 27.0-32.0 [facility] Comment on above: Performed By: #### L 300.3900, L503.7505, L500.2500, L100.0100, L300.4310, L503.6005, L500.3400 ####[facility] [address] [place], [address] MCHC (RBC) [Mass/Vol] 33.7 g/dL Normal 32-36 [facility] Comment on above: Performed By: #### L 300.3900, L503.7505, L500.2500, L100.0100, L300.4310, L503.6005, L500.3400 ####[facility] [address] [place], [address] MCV (RBC) [Entitic vol] 82.4 fL Normal 81-99 [facility] Comment on above: Performed By: #### L 300.3900, L503.7505, L500.2500, L100.0100, L300.4310, L503.6005, L500.3400 ####[facility] [address] [place], [address] Monocytes/100 WBC (Bld) 5.7 % Normal 0-10 [facility] Comment on above: Performed By: #### L 300.3900, L503.7505, L500.2500, L100.0100, L300.4310, L503.6005, L500.3400 ####[facility] [address] [place], [address] Neutrophils/100 WBC (Bld) 69.6 % Normal 47-70 [facility] Comment on above: Performed By: #### L 300.3900, L503.7505, L500.2500, L100.0100, L300.4310, L503.6005, L500.3400 ####[facility] [address] [place], [address] Nucleated RBC (Bld) [#/Vol] 0 10*3/uL Normal 0-5 [facility] Comment on above: Performed By: #### L 300.3900, L503.7505, L500.2500, L100.0100, L300.4310, L503.6005, L500.3400 ####[facility] [address] [place], [address] Platelet mean volume (Bld) [Entitic vol] 9.1 fL Normal 6.2-12.0 [facility] Comment on above: Performed By: #### L 300.3900, L503.7505, L500.2500, L100.0100, L300.4310, L503.6005, L500.3400 ####[facility] [address] [place], [address] Platelets (Bld) [#/Vol] 225 10*3/uL Normal 150-450 [facility] Comment on above: Performed By: #### L 300.3900, L503.7505, L500.2500, L100.0100, L300.4310, L503.6005, L500.3400 ####[facility] [address] [place], [address] RBC (Bld) [#/Vol] 4.93 10*6/uL Normal 4.2-5.4 [facility] Comment on above: Performed By: #### L 300.3900, L503.7505, L500.2500, L100.0100, L300.4310, L503.6005, L500.3400 ####[facility] [address] [place], [address] RDW SD 40.2 fl Normal 35.1-43.9 [facility] Comment on above: Performed By: #### L 300.3900, L503.7505, L500.2500, L100.0100, L300.4310, L503.6005, L500.3400 ####[facility] [address] [place], [address] WBC (Bld) [#/Vol] 7.5 10*3/uL Normal 4.4-11.0 [facility] Comment on above: Performed By: #### L 300.3900, L503.7505, L500.2500, L100.0100, L300.4310, L503.6005, L500.3400 ####[facility] [address] [place], [address] CTA LWR EXTR W/O W/DYEon CTA LWR EXTR W/O W/DYE Normal [facility] Calcium [Mass/Vol]Ordered By : Jeison Abrams on 08-26-2024 Serum or plasma calcium measurement (mass/volume) 9.2 mg/dL 7.6-11.0 [facility] Carbon dioxide, total [Moles /volume] in Central venous bloodOrdered By: Jeison Abrams on 08-26-2024 Carbon dioxide, total [Moles/volume] in Central venous blood 22.3 mmol/L 21.0-32.0 [facility] Chest 1 View (Portable)on Chest 1 View (Portable) Normal [facility] Chloride assayOrdered By: Tristan Abrams on 08-26-2024 Chloride assay 102 mmol/L 98-108 [facility] Creatinine [Mass/Vol]Ordered By: Jeison Abrams on 08-26-2024 Serum creatinine measurement (mass/volume) 0.74 mg/dL 0.70-1.20 [facility] Emergency Department Summary on 08-26-2024 Emergency Department Summary Normal [facility] Eosinophil percentageOrdered By: Jeison Abrams on 08-26-2024 Eosinophil percentage 2.8 % 0-5 [facility] Erythrocyte distribution wid th (RBC) [Entitic vol]Ordered By: Jeison Abrams on 08-26-2024 Erythrocyte distribution width standard deviation 40.2 fl 35.1-43.9 [facility] Erythrocyte distribution wid th (RBC) [Ratio]Ordered By: Jeison Abrams on 08-26-2024 Erythrocyte distribution width ratio 13.6 % 11.6-14.6 [facility] Estimation of creatinine sylvain aranceOrdered By: Jeison Abrams on 08-26-2024 Estimation of creatinine clearance 97.71 ml/min 50-250 [facility] GFR/1.73 sq M.predicted estephanie g non-blacks MDRD (S/P/Bld) [Vol rate/Area]Ordered By: Jeison Abrams on 08-26-2024 Glomerular filtration rate (GFR) estimation/1.73 sq m using serum, plasma, or whole b 97 >60 [facility] Glucose [Mass/Vol]Ordered By : Jeison Abrams on 08-26-2024 Serum glucose measurement (mass/volume) 315 mg/dL High 70-99 [facility] H AND P Exam - Hospitaliston 08-26-2024 H&P Exam - Hospitalist Normal [facility] Hematocrit Auto (Bld) [Volum e fraction]Ordered By: Jeison Abrams on 08-26-2024 Automated blood hematocrit (percentage) 40.6 % 37-47 [facility] Hemoglobin measurementOrdere d By: Jeison Abrams on 08-26-2024 Hemoglobin measurement 13.7 g/dL 12.0-15.0 [facility] Immature granulocytes/100 WB C Auto (Bld)Ordered By: Jeison Abrams on 08-26-2024 Automated immature granulocyte percentage 0.300 % 0.0-0.9 [facility] International normalized rat io (INR) calculationOrdered By: Vaughn Daugherty on 08-26-2024 International normalized ratio (INR) calculation 1.0 [facility] L503.7505on 08-26-2024 Natriuretic peptide B (Bld) [Mass/Vol] 1489 pg/mL High <=900 [facility] Comment on above: Result Comment: Hear t Failure Unlikely: < 300 pg/mLHeart Failure Likely< 50 Years: > 450 pg/mL50-75 Years: > 900 pg/mL>75 Years: > 1800 pg/mL Performed By: #### L 300.3900, L503.7505, L500.2500, L100.0100, L300.4310, L503.6005, L500.3400 ####[facility] [address] [place], [address] Lactic Acidon 08-26-2024 Lactate [Moles/Vol] 1.5 mmol/L Normal 0.0-2.0 [facility] Comment on above: Order Comment: Y Performed By: #### L 300.3900, L503.7505, L500.2500, L100.0100, L300.4310, L503.6005, L500.3400 ####[facility] [address] [facility] [place], [place], [phone] Lactic acid measurementOrder ed By: Jeison Abrams on 08-26-2024 Lactic acid measurement 1.5 mmol/L 0.0-2.0 [facility] Liver Profileon 08-26-2024 Albumin [Mass/Vol] 3.6 g/dL Normal 3.5-5.0 [facility] Comment on above: Performed By: #### L 300.3900, L503.7505, L500.2500, L100.0100, L300.4310, L503.6005, L500.3400 ####[facility] [address] [place], [address] ALK PHOS 134 U/L High 35-104 [facility] Comment on above: Performed By: #### L 300.3900, L503.7505, L500.2500, L100.0100, L300.4310, L503.6005, L500.3400 ####[facility] [address] [place], [address] ALT [Catalytic activity/Vol] 14 U/L Normal <=34 [facility] Comment on above: Performed By: #### L 300.3900, L503.7505, L500.2500, L100.0100, L300.4310, L503.6005, L500.3400 ####[facility] [address] [place], [address] AST [Catalytic activity/Vol] 27 U/L Normal <=31 [facility] Comment on above: Result Comment: Hemo lysis present, Results??could be affected.?? Performed By: #### L 300.3900, L503.7505, L500.2500, L100.0100, L300.4310, L503.6005, L500.3400 ####[facility] [address] [place], [address] Bilirubin [Mass/Vol] 0.52 mg/dL Normal 0.00-1.30 [facility] Comment on above: Performed By: #### L 300.3900, L503.7505, L500.2500, L100.0100, L300.4310, L503.6005, L500.3400 ####[facility] [address] [place], [address] Bilirubin.direct [Mass/Vol] 0.08 mg/dL Normal 0.00-0.30 [facility] Comment on above: Result Comment: Hemo lysis present, Results??could be affected.?? Performed By: #### L 300.3900, L503.7505, L500.2500, L100.0100, L300.4310, L503.6005, L500.3400 ####[facility] [address] [place], [address] Globulin (S) [Mass/Vol] 3.4 g/dL Normal 2.2-4.2 [facility] Comment on above: Performed By: #### L 300.3900, L503.7505, L500.2500, L100.0100, L300.4310, L503.6005, L500.3400 ####[facility] [address], [address] T PROT 7.0 g/dL Normal 5.9-8.4 [facility] Comment on above: Performed By: #### L 300.3900, L503.7505, L500.2500, L100.0100, L300.4310, L503.6005, L500.3400 ####[facility] [address] [place], [place], [phone] Lymphocytes Auto (Unsp spec) [#/Vol]Ordered By: Jeison Abarms on 08-26-2024 Absolute lymphocyte count 1.57 X10^3/uL 0.83-4.51 [facility] Lymphocytes/100 WBC Auto (Un sp spec)Ordered By: Jeison Abrams on 08-26-2024 Automated lymphocyte count as percentage of total leukocytes 20.9 % 19-41 [facility] MCV (RBC) [Entitic vol]Order ed By: Jeison Abrams on 08-26-2024 MCV (mean corpuscular volume) determination 82.4 fL 81-99 [facility] Mean corpuscular hemoglobin (MCH) determinationOrdered By: Jeison Abrams on 08-26-2024 Mean corpuscular hemoglobin (MCH) determination 27.8 pg 27.0-32.0 [facility] Mean corpuscular hemoglobin concentration (MCHC) determinationOrdered By: Jeison Abrams on 08-26-2024 Mean corpuscular hemoglobin concentration (MCHC) determination 33.7 g/dL 32-36 [facility] Mean platelet volume determi nationOrdered By: Jeison Abrams on 08-26-2024 Mean platelet volume determination 9.1 fl 6.2-12.0 [facility] Monocyte percentageOrdered B y: Jeison Abrams on 08-26-2024 Monocyte percentage 5.7 % 0-10 [facility] Neutrophil percentageOrdered By: Jeison Abrams on 08-26-2024 Neutrophil percentage 69.6 % 47-70 [facility] No Panel InformationOrdered By: Jeison Abrams on 08-26-2024 27 U/L <32 [facility] 1489 pg/mL High <900 [facility] Nucleated red blood cell per centageOrdered By: Jeison Abrams on 08-26-2024 Nucleated red blood cell percentage 0 % 0-5 [facility] Partial Thromboplast Timeon 08-26-2024 aPTT Coag (Bld) [Time] 26.5 s Normal 24.1-36.2 [facility] Comment on above: Performed By: #### L 300.3900, L300.4310 ####[facility] [address] [place], [place], [phone] aPTT Coag (Bld) [Time] 26.8 s Normal 24.1-36.2 [facility] Comment on above: Performed By: #### L 300.3900, L503.7505, L500.2500, L100.0100, L300.4310, L503.6005, L500.3400 ####[facility] [address], [address] Platelet countOrdered By: Tristan Abrams on 08-26-2024 Platelet count 225 K/mm3 150-450 [facility] Potassium (Unsp spec) [Mass/ Vol]Ordered By: Jeison Abrams on 08-26-2024 Potassium measurement (mass/volume) 3.4 mmol/L 3.3-5.1 [facility] Prothrombin Time w/INRon INR Coag (PPP) [Relative time] 1.0 {INR} Normal [facility] Comment on above: Performed By: #### L 300.3900, L300.4310 ####[facility] [address] [place], [address] PT Coag (PPP) [Time] 12.8 s Normal 11.7-14.9 [facility] Comment on above: Performed By: #### L 300.3900, L300.4310 ####[facility] [address] [place], [address] INR Coag (PPP) [Relative time] 0.9 {INR} Normal [facility] Comment on above: Performed By: #### L 300.3900, L503.7505, L500.2500, L100.0100, L300.4310, L503.6005, L500.3400 ####[facility] [address] [place], [address] PT Coag (PPP) [Time] 12.3 s Normal 11.7-14.9 [facility] Comment on above: Performed By: #### L 300.3900, L503.7505, L500.2500, L100.0100, L300.4310, L503.6005, L500.3400 ####[facility] [address] [place], [address] Prothrombin timeOrdered By: Vaughn Daugherty on 08-26-2024 Prothrombin time 12.8 SECONDS 11.7-14.9 [facility] RBC Auto (Bld) [#/Vol]Ordere d By: Jeison Abrams on 08-26-2024 Automated blood erythrocyte count 4.93 M/mm3 4.2-5.4 [facility] Serum globulin measurementOr dered By: Jeison Abrams on 08-26-2024 Serum globulin measurement 3.4 g/dL 2.2-4.2 [facility] Sodium levelOrdered By: Sj Abrams on 08-26-2024 Sodium level 135 mmol/L 133-145 [facility] Total proteinOrdered By: Gualberto Abrams on 08-26-2024 Total protein 7.0 g/dL 5.9-8.4 [facility] Urea nitrogen [Mass/Vol]Orde red By: Jeison Abrams on 08-26-2024 Serum or plasma urea nitrogen measurement (mass/volume) 10 mg/dL 4-19 [facility] Venous Duplex US, Unilateral on 08-26-2024 Venous Duplex US, Unilateral Normal [facility] Venous duplex ultrasound rep ortOrdered By: Riccardo Ng on 08-26-2024 US Vein [facility] Work Phone: White blood cell (WBC) count Ordered By: Jeison Abrams on 08-26-2024 White blood cell (WBC) count 7.5 K/mm3 4.4-11.0 [facility] aPTT Coag (PPP) [Time]Ordere d By: Vaughn Daugherty on 08-26-2024 Activated partial thromboplastin time (aPTT) in platelet poor plasma by coagulation a 26.5 Seconds 24.1-36.2 [facility] Urine Cultureon 08-04-2024 URC Normal [facility] Comment on above: Performed By: #### M 100.2200 ####[facility] [address] [place], [address] ALP [Catalytic activity/Vol] Ordered By: Riccardo Hillman on 08-01-2024 Serum or plasma alkaline phosphatase measurement 162 U/L High 35-104 [facility] ALT [Catalytic activity/Vol] Ordered By: Riccardo Hillman on 08-01-2024 Serum or plasma alanine aminotransferase (ALT) measurement 12 U/L <35 [facility] Abdomen/Pelvis W IV Cont ONL Yon 08-01-2024 Abdomen/Pelvis W IV Cont ONLY Normal [facility] Absolute neutrophil countOrd ered By: Riccardo Hillman on 08-01-2024 Absolute neutrophil count 11.1 X10^3/uL High 2.0-7.7 [facility] Acetone Serumon 08-01-2024 ACETONE SERUM Negative Normal NEG [facility] Comment on above: Performed By: #### L 501.6900 ####[facility] [address] [place], [address] Acetone [Mass/Vol]Ordered By : Riccardo Hillman on 08-01-2024 Serum acetone measurement Negative NEG [facility] Albumin [Mass/Vol]Ordered By : Riccardo Hillman on 08-01-2024 Serum or plasma albumin measurement (mass/volume) 4.2 g/dL 3.5-5.0 [facility] Albumin/Globulin [Mass ratio ]Ordered By: Riccardoting Hillman on 08-01-2024 Serum or plasma albumin/globulin mass ratio 1.0 RATIO 0.9-2.4 [facility] Anion gap [Moles/Vol]Ordered By: Riccardo Hillman on 08-01-2024 Serum or plasma anion gap determination (moles/volume) 17 High 5-15 [facility] BUN/creatinine ratioOrdered By: Riccardo Hillman on 08-01-2024 BUN/creatinine ratio 11.8 RATIO 10-20 [facility] Bacteria LM.HPF (Urine sed) [#/Area]Ordered By: Riccardo Hillman on 08-01-2024 Urine sediment bacteria count by microscopy (number/high power field) 4+ /hpf None Seen [facility] Basophil percentageOrdered B y: Riccardo Hillman on 08-01-2024 Basophil percentage 0.5 % 0-1 [facility] Bedside Glucoseon 08-01-2024 FINGERSTICK GLU 225 mg/dL High 74-106 [facility] Comment on above: Result Comment: TALIA CHAMBERS OF PATIENT CARE PER NURSING PROTOCOL Performed By: #### L 501.080 ####[facility] [address] [place], [place], [id number] Bilirubin, totalOrdered By: Riccardo Hillman on 08-01-2024 Bilirubin, total 1.23 mg/dL 0.00-1.30 [facility] CBC W/Diff, Automatedon 02-2 8-2025 Absolute Lymph 1.55 X10 3/uL Normal 0.83-4.51 [facility] Comment on above: Performed By: #### L 501.2450, L500.4050, L100.0100 ####[facility] [address] [place], [address] Absolute Neut 11.1 X10 3/uL High 2.0-7.7 [facility] Comment on above: Performed By: #### L 501.2450, L500.4050, L100.0100 ####[facility] [address] [place], [address] Basophils/100 WBC (Bld) 0.5 % Normal 0-1 [facility] Comment on above: Performed By: #### L 501.2450, L500.4050, L100.0100 ####[facility] [address] [place], [address] Eosinophils/100 WBC (Bld) 0.2 % Normal 0-5 [facility] Comment on above: Performed By: #### L 501.2450, L500.4050, L100.0100 ####[facility] [address] [place], [address] Erythrocyte distribution width (RBC) [Ratio] 14.1 % Normal 11.6-14.6 [facility] Comment on above: Performed By: #### L 501.2450, L500.4050, L100.0100 ####[facility] [address] [place], [address] Hematocrit (Bld) [Volume fraction] 40.8 % Normal 37-47 [facility] Comment on above: Performed By: #### L 501.2450, L500.4050, L100.0100 ####[facility] [address] [place], [address] Hemoglobin (Bld) [Mass/Vol] 13.6 g/dL Normal 12.0-15.0 [facility] Comment on above: Performed By: #### L 501.2450, L500.4050, L100.0100 ####[facility] [address] [place], [address] IG% 0.300 Normal 0.0-0.9 [facility] Comment on above: Result Comment: IG% - Immature Granulocytes (promyelocytes, myelocytes andmetamyelocytes) > 1% indicates that a LEFT SHIFT is Present. Performed By: #### L 501.2450, L500.4050, L100.0100 ####[facility] [address] [place], [address] Lymphocytes/100 WBC (Bld) 11.7 % Low 19-41 [facility] Comment on above: Performed By: #### L 501.2450, L500.4050, L100.0100 ####[facility] [address] [place], [address] MCH (RBC) [Entitic mass] 27.7 pg Normal 27.0-32.0 [facility] Comment on above: Performed By: #### L 501.2450, L500.4050, L100.0100 ####[facility] [address] [place], [address] MCHC (RBC) [Mass/Vol] 33.3 g/dL Normal 32-36 [facility] Comment on above: Performed By: #### L 501.2450, L500.4050, L100.0100 ####[facility] [address] [place], [address] MCV (RBC) [Entitic vol] 83.1 fL Normal 81-99 [facility] Comment on above: Performed By: #### L 501.2450, L500.4050, L100.0100 ####[facility] [address] [place], [address] Monocytes/100 WBC (Bld) 3.4 % Normal 0-10 [facility] Comment on above: Performed By: #### L 501.2450, L500.4050, L100.0100 ####[facility] [address] [place], [address] Neutrophils/100 WBC (Bld) 83.9 % High 47-70 [facility] Comment on above: Performed By: #### L 501.2450, L500.4050, L100.0100 ####[facility] [address] [place], [address] Nucleated RBC (Bld) [#/Vol] 0 10*3/uL Normal 0-5 [facility] Comment on above: Performed By: #### L 501.2450, L500.4050, L100.0100 ####[facility] [address] [place], [address] Platelet mean volume (Bld) [Entitic vol] 9.9 fL Normal 6.2-12.0 [facility] Comment on above: Performed By: #### L 501.2450, L500.4050, L100.0100 ####[facility] [address] [place], [address] Platelets (Bld) [#/Vol] 338 10*3/uL Normal 150-450 [facility] Comment on above: Performed By: #### L 501.2450, L500.4050, L100.0100 ####[facility] [address] [place], [address] RBC (Bld) [#/Vol] 4.91 10*6/uL Normal 4.2-5.4 [facility] Comment on above: Performed By: #### L 501.2450, L500.4050, L100.0100 ####[facility] [address] [place], [address] RDW SD 42.2 fl Normal 35.1-43.9 [facility] Comment on above: Performed By: #### L 501.2450, L500.4050, L100.0100 ####[facility] [address] [place], [address] WBC (Bld) [#/Vol] 13.3 10*3/uL High 4.4-11.0 [facility] Comment on above: Performed By: #### L 501.2450, L500.4050, L100.0100 ####[facility] [address] [place], [address] Calcium [Mass/Vol]Ordered By : Riccardo Hillman on 08-01-2024 Serum or plasma calcium measurement (mass/volume) 9.8 mg/dL 7.6-11.0 [facility] Carbon dioxide measurementOr dered By: Riccardo Hillman on 08-01-2024 Carbon dioxide measurement 22.7 mmol/L 22.0-29.0 [facility] Chloride measurementOrdered By: Riccardo Hillman on 08-01-2024 Chloride measurement 93 mmol/L Low 96-108 [facility] Clarity (U)Ordered By: Riccardo Hillman on 08-01-2024 Urine clarity Cloudy Clear [facility] Color (U)Ordered By: Riccardo latham on 08-01-2024 Urine color determination Yellow Yellow [facility] Comprehensive Metabolic Prof ilon 08-01-2024 Albumin [Mass/Vol] 4.2 g/dL Normal 3.5-5.0 [facility] Comment on above: Performed By: #### L 501.2450, L500.4050, L100.0100 ####[facility] [address] [place], [address] Albumin/Globulin [Mass ratio] 1.0 {ratio} Normal 0.9-2.4 [facility] Comment on above: Performed By: #### L 501.2450, L500.4050, L100.0100 ####[facility] [address] [place], [address] ALK PHOS 162 U/L High 35-104 [facility] Comment on above: Performed By: #### L 501.2450, L500.4050, L100.0100 ####[facility] [address] [place], [address] ALT [Catalytic activity/Vol] 12 U/L Normal <=34 [facility] Comment on above: Performed By: #### L 501.2450, L500.4050, L100.0100 ####[facility] [address] [place], [address] Anion gap [Moles/Vol] 17 mmol/L High 5-15 [facility] Comment on above: Performed By: #### L 501.2450, L500.4050, L100.0100 ####[facility] [address] [place], [address] AST [Catalytic activity/Vol] 24 U/L Normal <=31 [facility] Comment on above: Performed By: #### L 501.2450, L500.4050, L100.0100 ####[facility] [address] [place], [address] Bilirubin [Mass/Vol] 1.23 mg/dL Normal 0.00-1.30 [facility] Comment on above: Performed By: #### L 501.2450, L500.4050, L100.0100 ####[facility] [address] [place], [address] BUN/CRE 11.8 RATIO Normal 10-20 [facility] Comment on above: Performed By: #### L 501.2450, L500.4050, L100.0100 ####[facility] [address] [place], [address] Calcium [Mass/Vol] 9.8 mg/dL Normal 7.6-11.0 [facility] Comment on above: Performed By: #### L 501.2450, L500.4050, L100.0100 ####[facility] [address] [place], [address] Chloride [Moles/Vol] 93 mmol/L Low 96-108 [facility] Comment on above: Performed By: #### L 501.2450, L500.4050, L100.0100 ####[facility] [address] [place], [address] CO2 [Moles/Vol] 22.7 mmol/L Normal 22.0-29.0 [facility] Comment on above: Performed By: #### L 501.2450, L500.4050, L100.0100 ####[facility] [address] [place], [address] Creatinine [Mass/Vol] 0.79 mg/dL Normal 0.70-1.20 [facility] Comment on above: Performed By: #### L 501.2450, L500.4050, L100.0100 ####[facility] [address] [place], [address] ECRCL 91.16 ml/min Normal [facility] Comment on above: Performed By: #### L 501.2450, L500.4050, L100.0100 ####[facility] [address] [place], [address] GFR/1.73 sq M.predicted among non-blacks MDRD (S/P/Bld) [Vol rate/Area] 90 mL/min/{1.73_m2} Normal >60 [facility] Comment on above: Result Comment: mL/m in/1.73m2 CKD-EPI Creatinine Equation (2020) Performed By: #### L 501.2450, L500.4050, L100.0100 ####[facility] [address] [place], [address] Globulin (S) [Mass/Vol] 4.0 g/dL Normal 2.2-4.2 [facility] Comment on above: Performed By: #### L 501.2450, L500.4050, L100.0100 ####[facility] [address] [place], [address] Glucose [Mass/Vol] 410 mg/dL High 70-99 [facility] Comment on above: Performed By: #### L 501.2450, L500.4050, L100.0100 ####[facility] [address] [place], [address] Potassium [Moles/Vol] 3.5 mmol/L Normal 3.3-5.1 [facility] Comment on above: Performed By: #### L 501.2450, L500.4050, L100.0100 ####[facility] [address] [place], [address] Sodium [Moles/Vol] 132 mmol/L Low 133-145 [facility] Comment on above: Performed By: #### L 501.2450, L500.4050, L100.0100 ####[facility] [address] [place], [address] T PROT 8.1 g/dL Normal 5.9-8.4 [facility] Comment on above: Performed By: #### L 501.2450, L500.4050, L100.0100 ####[facility] [address] [place], [address] Urea nitrogen [Mass/Vol] 9 mg/dL Normal 4-19 [facility] Comment on above: Performed By: #### L 501.2450, L500.4050, L100.0100 ####[facility] [address] [place], [address] Creatinine [Mass/Vol]Ordered By: Riccardo Hillman on 08-01-2024 Serum creatinine measurement (mass/volume) 0.79 mg/dL 0.70-1.20 [facility] Emergency Department Summary on 08-01-2024 Emergency Department Summary Normal [facility] Eosinophil percentageOrdered By: Riccardo Hillman on 08-01-2024 Eosinophil percentage 0.2 % 0-5 [facility] Erythrocyte distribution wid th (RBC) [Ratio]Ordered By: Riccardo Hillman on 08-01-2024 Erythrocyte distribution width ratio 14.1 % 11.6-14.6 [facility] Erythrocyte distribution wid th standard deviationOrdered By: Riccardo Hillman on 08-01-2024 Erythrocyte distribution width standard deviation 42.2 fl 35.1-43.9 [facility] Estimation of creatinine sylvain aranceOrdered By: Riccardo Hillman on 08-01-2024 Estimation of creatinine clearance 91.16 ml/min [facility] GFR/1.73 sq M.predicted estephanie g non-blacks MDRD (S/P/Bld) [Vol rate/Area]Ordered By: Riccardo Hillman on 08-01-2024 Glomerular filtration rate (GFR) estimation/1.73 sq m using serum, plasma, or whole b 90 >60 [facility] Glucose Ql (U)Ordered By: Bertram Hillman on 08-01-2024 Urine glucose detection 1000 mg/dl High Normal [facility] Glucose [Mass/Vol]Ordered By : Riccardo Hillman on 08-01-2024 Serum glucose measurement (mass/volume) 410 mg/dL High 70-99 [facility] Glucose measurement at bedsi deOrdered By: Riccardo Hillman on 08-01-2024 Glucose measurement at bedside 225 mg/dL High 74-106 [facility] Hematocrit Auto (Bld) [Volum e fraction]Ordered By: Riccardo Hillman on 08-01-2024 Automated blood hematocrit (percentage) 40.8 % 37-47 [facility] Hemoglobin measurementOrdere d By: Riccardo Hillman on 08-01-2024 Hemoglobin measurement 13.6 g/dL 12.0-15.0 [facility] Immature granulocytes/100 WB C Auto (Bld)Ordered By: Riccardo Hillman on 08-01-2024 Automated immature granulocyte percentage 0.300 % 0.0-0.9 [facility] Leukocyte esterase Test stri p Ql (U)Ordered By: Riccardo Hillman on 08-01-2024 Urine leukocyte esterase detection by dipstick 500 /ul High Negative [facility] Lipaseon 08-01-2024 Lipase [Catalytic activity/Vol] 17 U/L Normal 13-75 [facility] Comment on above: Result Comment: Gege edgar note:LIPASE revised reference range effective 22.New Lipase methodology. Expected to produce lower valuesthan the previous assay method.NEW Reference Range: 13 - 75 U/L Performed By: #### L 501.2450, L500.4050, L100.0100 ####[facility] [address] [place], [address] Lipase measurementOrdered By : Riccardo Hillman on 08-01-2024 Lipase measurement 17 U/L 13-75 [facility] Lymphocytes Auto (Unsp spec) [#/Vol]Ordered By: Riccardo Hillman on 08-01-2024 Absolute lymphocyte count 1.55 X10^3/uL 0.83-4.51 [facility] Lymphocytes/100 WBC Auto (Un sp spec)Ordered By: Riccardo Hillman on 08-01-2024 Automated lymphocyte count as percentage of total leukocytes 11.7 % Low 19-41 [facility] MCV (RBC) [Entitic vol]Order ed By: Riccardo Hillman on 08-01-2024 MCV (mean corpuscular volume) determination 83.1 fL 81-99 [facility] Mean corpuscular hemoglobin (MCH) determinationOrdered By: Riccardo Hillman on 08-01-2024 Mean corpuscular hemoglobin (MCH) determination 27.7 pg 27.0-32.0 [facility] Mean corpuscular hemoglobin concentration (MCHC) determinationOrdered By: Riccardo Hillman on 08-01-2024 Mean corpuscular hemoglobin concentration (MCHC) determination 33.3 g/dL 32-36 [facility] Mean platelet volume determi nationOrdered By: Riccardo Hillman on 08-01-2024 Mean platelet volume determination 9.9 fl 6.2-12.0 [facility] Microscopic analysis of urin e for red blood cells (RBC)Ordered By: Riccardo Hillman on 08-01-2024 Microscopic analysis of urine for red blood cells (RBC) 0-5 SEEN /hpf 5-10 [facility] Monocyte percentageOrdered B y: Riccardo Hillman on 08-01-2024 Monocyte percentage 3.4 % 0-10 [facility] Mucus LM Ql (Urine sed)Order ed By: Riccardo Hillman on 08-01-2024 Mucus detection in urine sediment by light microscopy 0 SEEN /hpf [facility] Neutrophil percentageOrdered By: Riccardo Hillman on 08-01-2024 Neutrophil percentage 83.9 % High 47-70 [facility] No Panel InformationOrdered By: Riccardo Hillman on 08-01-2024 24 U/L <32 [facility] Nucleated red blood cell per centageOrdered By: Riccardo Hillman on 08-01-2024 Nucleated red blood cell percentage 0 % 0-5 [facility] Platelet countOrdered By: Bertram Hillman on 08-01-2024 Platelet count 338 K/mm3 150-450 [facility] Potassium [Moles/Vol]Ordered By: Riccardo Hillman on 08-01-2024 Serum or plasma potassium measurement 3.5 mmol/L 3.3-5.1 [facility] Protein Test strip Ql (U)Ord ered By: Riccardo Hillman on 08-01-2024 Urine protein assay by test strip, semi-quantitative 100 mg/dl High Negative [facility] RBC Auto (Bld) [#/Vol]Ordere d By: Riccardo Hillman on 08-01-2024 Automated blood erythrocyte count 4.91 M/mm3 4.2-5.4 [facility] Serum globulin measurementOr dered By: Riccardo Hillman on 08-01-2024 Serum globulin measurement 4.0 g/dL 2.2-4.2 [facility] Sodium [Moles/Vol]Ordered By : Riccardo Hillman on 08-01-2024 Serum or plasma sodium measurement (moles/volume) 132 mmol/L Low 133-145 [facility] Specific gravity (U) [Rel de nsity]Ordered By: Riccardo Hillman on 08-01-2024 Urine specific gravity measurement 1.010 1.002-1.03 0 [facility] Total proteinOrdered By: Guerita meneses Rafy on 08-01-2024 Total protein 8.1 g/dL 5.9-8.4 [facility] Urea nitrogen [Mass/Vol]Orde red By: Riccardo Hillman on 08-01-2024 Serum or plasma urea nitrogen measurement (mass/volume) 9 mg/dL 4-19 [facility] Urinalysis, Completeon 08-01 BACTERIA 4+ /hpf Normal None Seen [facility] Comment on above: Order Comment: LUISA CTOR TO SPECIFY Performed By: #### L 400.0001 ####[facility] [address] [place] [address] EPI,SQUAMOUS 0-5 SEEN Normal 5-10 [facility] Comment on above: Order Comment: LUISA CTOR TO SPECIFY Performed By: #### L 400.0001 ####[facility] [address] [place] [address] RBC 0-5 SEEN Normal 0-5 [facility] Comment on above: Order Comment: LUISA CTOR TO SPECIFY Performed By: #### L 400.0001 ####[facility] [address] [place] [address] YEAST 1+ /hpf Normal None Seen [facility] Comment on above: Order Comment: LUISA CTOR TO SPECIFY Performed By: #### L 400.0001 ####[facility] [address] [place] [address] WBC 50-100 SEEN Normal 0-5 [facility] Comment on above: Order Comment: LUISA CTOR TO SPECIFY Performed By: #### L 400.0001 ####[facility] [address] [place] [address] Mucus Ql (Urine sed) 0 SEEN Normal [facility] Comment on above: Order Comment: LUISA CTOR TO SPECIFY Performed By: #### L 400.0001 ####[facility] [address] [place], [place], [id number] Urine blood detectionOrdered By: Riccardo Hillman on 08-01-2024 Urine blood detection 50 /ul High Negative [facility] Urine cultureOrdered By: Guerita Hillman on 08-01-2024 Urine culture ESBL Escherichia coli Abnormal [facility] Urine total bilirubin detect ion by test stripOrdered By: Riccardo Hillman on 08-01-2024 Urine total bilirubin detection by test strip Negative Negative [facility] Urobilinogen Ql (U)Ordered B y: Riccardo Hillman on 08-01-2024 Urine urobilinogen measurement Normal mg/dl Normal [facility] White blood cell (WBC) count Ordered By: Riccardo Hillman on 08-01-2024 White blood cell (WBC) count 13.3 K/mm3 High 4.4-11.0 [facility] White blood cell countOrdere d By: Riccardo Hillman on 08-01-2024 White blood cell count 50-100 SEEN /hpf 0-5 [facility] Yeast LM.HPF (Urine sed) [#/ Area]Ordered By: Riccardo Hillman on 08-01-2024 Urine sediment yeast count by microscopy (number/high powered field) 1+ /hpf None Seen [facility] pH (U)Ordered By: Riccardo rondon on 08-01-2024 Urine pH 6.5 5.0 - 8.0 [facility] Absolute neutrophil countOrd ered By: Nicole Trujillo on 07-03-2024 Absolute neutrophil count 2.6 X10^3/uL 2.0-7.7 [facility] Basic Metabolic Profile (BMP )on 07-03-2024 BUN/CRE 24.4 RATIO High 10-20 [facility] Comment on above: Performed By: #### L 500.2500, L100.0100 ####[facility] [address] [facility] [place], [place], [id number] CA,Total 8.6 mg/dL Normal 8.5-10.1 [facility] Comment on above: Performed By: #### L 500.2500, L100.0100 ####[facility] [address] [place], [address] Chloride [Moles/Vol] 105 mmol/L Normal 98-107 [facility] Comment on above: Performed By: #### L 500.2500, L100.0100 ####[facility] [address] [place], [address] CO2 [Moles/Vol] 27.0 mmol/L Normal 21.0-32.0 [facility] Comment on above: Performed By: #### L 500.2500, L100.0100 ####[facility] [address] [place], [address] Creatinine [Mass/Vol] 0.61 mg/dL Normal 0.55-1.02 [facility] Comment on above: Result Comment: The validity of the calculated GFR GFRAA in patients over70 years has not been determined. Clinical correlation isessential. Performed By: #### L 500.2500, L100.0100 ####[facility] [address] [place], [address] ECRCL 119.69 ml/min Normal [facility] Comment on above: Performed By: #### L 500.2500, L100.0100 ####[facility] [address] [place], [address] EST GFR - AA 131 mL/min Normal >60 [facility] Comment on above: Result Comment: Afri can [place] GFR Calc Performed By: #### L 500.2500, L100.0100 ####[facility] [address] [place], [address] GAP 5 Normal 5-15 [facility] Comment on above: Performed By: #### L 500.2500, L100.0100 ####[facility] [address] [place], [address] GFR/1.73 sq M.predicted among non-blacks MDRD (S/P/Bld) [Vol rate/Area] 108 mL/min/{1.73_m2} Normal >60 [facility] Comment on above: Result Comment: Non- GFR Calc Performed By: #### L 500.2500, L100.0100 ####[facility] [address] [place], [address] Glucose [Mass/Vol] 163 mg/dL High 74-106 [facility] Comment on above: Result Comment: Fast ing Glucose result greater than or equal to 126 mg/dLsuggests DIABETES MELLITUS per A.D.A. criteria. Performed By: #### L 500.2500, L100.0100 ####[facility] [address] [place], [address] Potassium [Moles/Vol] 3.4 mmol/L Low 3.5-5.1 [facility] Comment on above: Performed By: #### L 500.2500, L100.0100 ####[facility] [address] [place], [address] Sodium [Moles/Vol] 137 mmol/L Normal 136-145 [facility] Comment on above: Performed By: #### L 500.2500, L100.0100 ####[facility] [address] [place], [address] Urea nitrogen [Mass/Vol] 15 mg/dL Normal 7-18 [facility] Comment on above: Performed By: #### L 500.2500, L100.0100 ####[facility] [address] [place], [address] Basophil percentageOrdered B y: Nicole Trujillo on 07-03-2024 Basophil percentage 0.4 % 0-1 [facility] Bedside Glucoseon 07-03-2024 FINGERSTICK GLU 180 mg/dL High 74-106 [facility] Comment on above: Result Comment: TALIA CHAMBERS OF PATIENT CARE PER NURSING PROTOCOL Performed By: #### L 501.080 ####[facility] [address] [place], [address] FINGERSTICK GLU 137 mg/dL High 74-106 [facility] Comment on above: Result Comment: TALIA CHAMBERS OF PATIENT CARE PER NURSING PROTOCOL Performed By: #### L 501.080 ####[facility] [address] [place], [address] Blood urea nitrogen (BUN)/cr eatinine ratioOrdered By: Nicole Trujillo on 07-03-2024 Blood urea nitrogen (BUN)/creatinine ratio 24.4 RATIO High 10-20 [facility] CBC W/Diff, Automatedon 06-06 Absolute Lymph 1.43 X10 3/uL Normal 0.83-4.51 [facility] Comment on above: Performed By: #### L 500.2500, L100.0100 ####[facility] [address] [place], [address] Absolute Neut 2.6 X10 3/uL Normal 2.0-7.7 [facility] Comment on above: Performed By: #### L 500.2500, L100.0100 ####[facility] [address] [place], [address] Basophils/100 WBC (Bld) 0.4 % Normal 0-1 [facility] Comment on above: Performed By: #### L 500.2500, L100.0100 ####[facility] [address] [place], [address] Eosinophils/100 WBC (Bld) 0.7 % Normal 0-5 [facility] Comment on above: Performed By: #### L 500.2500, L100.0100 ####[facility] [address] [place], [address] Erythrocyte distribution width (RBC) [Ratio] 14.3 % Normal 11.6-14.6 [facility] Comment on above: Performed By: #### L 500.2500, L100.0100 ####[facility] [address] [place], [address] Hematocrit (Bld) [Volume fraction] 32.6 % Low 37-47 [facility] Comment on above: Performed By: #### L 500.2500, L100.0100 ####[facility] [address] [place], [address] Hemoglobin (Bld) [Mass/Vol] 10.8 g/dL Low 12.0-15.0 [facility] Comment on above: Performed By: #### L 500.2500, L100.0100 ####[facility] [address] [place], [address] IG% 0.700 Normal 0.0-0.9 [facility] Comment on above: Result Comment: IG% - Immature Granulocytes (promyelocytes, myelocytes andmetamyelocytes) > 1% indicates that a LEFT SHIFT is Present. Performed By: #### L 500.2500, L100.0100 ####[facility] [address] [place], [address] Lymphocytes/100 WBC (Bld) 32.0 % Normal 19-41 [facility] Comment on above: Performed By: #### L 500.2500, L100.0100 ####[facility] [address] [place], [address] MCH (RBC) [Entitic mass] 27.2 pg Normal 27.0-32.0 [facility] Comment on above: Performed By: #### L 500.2500, L100.0100 ####[facility] [address] [place], [address] MCHC (RBC) [Mass/Vol] 33.1 g/dL Normal 32-36 [facility] Comment on above: Performed By: #### L 500.2500, L100.0100 ####[facility] [address] [place], [address] MCV (RBC) [Entitic vol] 82.1 fL Normal 81-99 [facility] Comment on above: Performed By: #### L 500.2500, L100.0100 ####[facility] [address] [place], [address] Monocytes/100 WBC (Bld) 8.7 % Normal 0-10 [facility] Comment on above: Performed By: #### L 500.2500, L100.0100 ####[facility] [address] [place], [address] Neutrophils/100 WBC (Bld) 57.5 % Normal 47-70 [facility] Comment on above: Performed By: #### L 500.2500, L100.0100 ####[facility] [address] [place], [address] Nucleated RBC (Bld) [#/Vol] 0 10*3/uL Normal 0-5 [facility] Comment on above: Performed By: #### L 500.2500, L100.0100 ####[facility] [address] [place], [address] Platelet mean volume (Bld) [Entitic vol] 10.2 fL Normal 6.2-12.0 [facility] Comment on above: Performed By: #### L 500.2500, L100.0100 ####[facility] [address] [place], [address] Platelets (Bld) [#/Vol] 192 10*3/uL Normal 150-450 [facility] Comment on above: Performed By: #### L 500.2500, L100.0100 ####[facility] [address] [place], [address] RBC (Bld) [#/Vol] 3.97 10*6/uL Low 4.2-5.4 [facility] Comment on above: Performed By: #### L 500.2500, L100.0100 ####[facility] [address] [place], [address] RDW SD 42.9 fl Normal 35.1-43.9 [facility] Comment on above: Performed By: #### L 500.2500, L100.0100 ####[facility] [address] [place], [address] WBC (Bld) [#/Vol] 4.5 10*3/uL Normal 4.4-11.0 [facility] Comment on above: Performed By: #### L 500.2500, L100.0100 ####[facility] [address] [place], [address] Calcium [Mass/Vol]Ordered By : Nicole Trujillo on 07-03-2024 Serum or plasma calcium measurement (mass/volume) 8.6 mg/dL 8.5-10.1 [facility] Carbon dioxide measurementOr dered By: Nicole Trujillo on 07-03-2024 Carbon dioxide measurement 27.0 mmol/L 21.0-32.0 [facility] Chloride measurementOrdered By: Nicole Trujillo on 07-03-2024 Chloride measurement 105 mmol/L 98-107 [facility] Creatinine [Mass/Vol]Ordered By: Nicole Trujillo on 07-03-2024 Serum or plasma creatinine measurement (mass/volume) 0.61 mg/dL 0.55-1.02 [facility] Eosinophil percentageOrdered By: Nicole Trujillo on 07-03-2024 Eosinophil percentage 0.7 % 0-5 [facility] Erythrocyte distribution wid th (RBC) [Ratio]Ordered By: Nicole Trujillo on 07-03-2024 Erythrocyte distribution width ratio 14.3 % 11.6-14.6 [facility] Erythrocyte distribution wid th standard deviationOrdered By: Nicole Trujillo on 07-03-2024 Erythrocyte distribution width standard deviation 42.9 fl 35.1-43.9 [facility] Estimated glomerular filtrat ion rate (GFR) AmericanOrdered By: Nicole Trujillo on 07-03-2024 Estimated glomerular filtration rate (GFR) 131 mL/min >60 [facility] Estimation of creatinine sylvain aranceOrdered By: Nicole Trujillo on 07-03-2024 Estimation of creatinine clearance 119.69 ml/min [facility] Glomerular filtration rate ( GFR) estimationOrdered By: Nicole Trujillo on 07-03-2024 Glomerular filtration rate (GFR) estimation 108 mL/min >60 [facility] Glucose measurementOrdered B y: Nicole Trujillo on 07-03-2024 Glucose measurement 163 mg/dL High 74-106 [facility] Glucose measurement at bedsi deOrdered By: Nicole Trujillo on 07-03-2024 Glucose measurement at bedside 180 mg/dL High 74-106 [facility] Hematocrit Auto (Bld) [Volum e fraction]Ordered By: Nicole Trujillo on 07-03-2024 Automated blood hematocrit (percentage) 32.6 % Low 37-47 [facility] Hemoglobin measurementOrdere d By: Nicole Trujillo on 07-03-2024 Hemoglobin measurement 10.8 g/dL Low 12.0-15.0 [facility] Immature granulocytes/100 WB C Auto (Bld)Ordered By: Nicole Trujillo on 07-03-2024 Automated immature granulocyte percentage 0.700 % 0.0-0.9 [facility] Lymphocytes Auto (Unsp spec) [#/Vol]Ordered By: Nicole Trujillo on 07-03-2024 Absolute lymphocyte count 1.43 X10^3/uL 0.83-4.51 [facility] Lymphocytes/100 WBC Auto (Un sp spec)Ordered By: Nicole Trujillo on 07-03-2024 Automated lymphocyte count as percentage of total leukocytes 32.0 % 19-41 [facility] MCV (RBC) [Entitic vol]Order ed By: Nicole Trujillo on 07-03-2024 MCV (mean corpuscular volume) determination 82.1 fL 81-99 [facility] Mean corpuscular hemoglobin (MCH) determinationOrdered By: Nicole Trujillo on 07-03-2024 Mean corpuscular hemoglobin (MCH) determination 27.2 pg 27.0-32.0 [facility] Mean corpuscular hemoglobin concentration (MCHC) determinationOrdered By: Nicole Trujillo on 07-03-2024 Mean corpuscular hemoglobin concentration (MCHC) determination 33.1 g/dL 32-36 [facility] Mean platelet volume determi nationOrdered By: Nicole Trujillo on 07-03-2024 Mean platelet volume determination 10.2 fl 6.2-12.0 [facility] Monocyte percentageOrdered B y: Nicole Trujillo on 07-03-2024 Monocyte percentage 8.7 % 0-10 [facility] Neutrophil percentageOrdered By: Nicole Trujillo on 07-03-2024 Neutrophil percentage 57.5 % 47-70 [facility] Nucleated red blood cell per centageOrdered By: Nicole Trujillo on 07-03-2024 Nucleated red blood cell percentage 0 % 0-5 [facility] Platelet countOrdered By: Mary Trujillo on 07-03-2024 Platelet count 192 K/mm3 150-450 [facility] Potassium measurementOrdered By: Nicole Trujillo on 07-03-2024 Potassium measurement 3.4 mmol/L Low 3.5-5.1 [facility] RBC Auto (Bld) [#/Vol]Ordere d By: Nicole Trujillo on 07-03-2024 Automated blood erythrocyte count 3.97 M/mm3 Low 4.2-5.4 [facility] Serum anion gap measurementO rdered By: Nicole Trjuillo on 07-03-2024 Serum anion gap measurement 5 5-15 [facility] Sodium levelOrdered By: Ifrah Trujillo on 07-03-2024 Sodium level 137 mmol/L 136-145 [facility] Urea nitrogen [Mass/Vol]Orde red By: Nicole Trujillo on 07-03-2024 Serum or plasma urea nitrogen measurement (mass/volume) 15 mg/dL 7-18 [facility] White blood cell (WBC) count Ordered By: Nicole Trujillo on 07-03-2024 White blood cell (WBC) count 4.5 K/mm3 4.4-11.0 [facility] Abdomen/Pel W ORAL Cont Only on 07-02-2024 Abdomen/Pel W ORAL Cont Only Normal [facility] Basic Metabolic Profile (BMP )on 07-02-2024 BUN/CRE 26.7 RATIO High 10-20 [facility] Comment on above: Performed By: #### L 501.5200, L100.0100, L501.2300, L500.2500 ####[facility] [address] [place], [address] CA,Total 8.3 mg/dL Low 8.5-10.1 [facility] Comment on above: Performed By: #### L 501.5200, L100.0100, L501.2300, L500.2500 ####[facility] [address] [place], [address] Chloride [Moles/Vol] 104 mmol/L Normal 98-107 [facility] Comment on above: Performed By: #### L 501.5200, L100.0100, L501.2300, L500.2500 ####[facility] [address] [place], [address] CO2 [Moles/Vol] 24.0 mmol/L Normal 21.0-32.0 [facility] Comment on above: Performed By: #### L 501.5200, L100.0100, L501.2300, L500.2500 ####[facility] [address] [place], [address] Creatinine [Mass/Vol] 0.94 mg/dL Normal 0.55-1.02 [facility] Comment on above: Result Comment: The validity of the calculated GFR GFRAA in patients over70 years has not been determined. Clinical correlation isessential. Performed By: #### L 501.5200, L100.0100, L501.2300, L500.2500 ####[facility] [address] [place], [address] ECRCL 76.61 ml/min Normal [facility] Comment on above: Performed By: #### L 501.5200, L100.0100, L501.2300, L500.2500 ####[facility] [address] [place], [address] EST GFR - AA 81 mL/min Normal >60 [facility] Comment on above: Result Comment: Afri can [place] GFR Calc Performed By: #### L 501.5200, L100.0100, L501.2300, L500.2500 ####[facility] [address] [place], [address] GAP 8 Normal 5-15 [facility] Comment on above: Performed By: #### L 501.5200, L100.0100, L501.2300, L500.2500 ####[facility] [address] [place], [address] GFR/1.73 sq M.predicted among non-blacks MDRD (S/P/Bld) [Vol rate/Area] 67 mL/min/{1.73_m2} Normal >60 [facility] Comment on above: Result Comment: Non- GFR Calc Performed By: #### L 501.5200, L100.0100, L501.2300, L500.2500 ####[facility] [address] [place], [address] Glucose [Mass/Vol] 134 mg/dL High 74-106 [facility] Comment on above: Result Comment: Fast ing Glucose result greater than or equal to 126 mg/dLsuggests DIABETES MELLITUS per A.D.A. criteria. Performed By: #### L 501.5200, L100.0100, L501.2300, L500.2500 ####[facility] [address] [place], [address] Potassium [Moles/Vol] 3.6 mmol/L Normal 3.5-5.1 [facility] Comment on above: Performed By: #### L 501.5200, L100.0100, L501.2300, L500.2500 ####[facility] [address] [place], [address] Sodium [Moles/Vol] 137 mmol/L Normal 136-145 [facility] Comment on above: Performed By: #### L 501.5200, L100.0100, L501.2300, L500.2500 ####[facility] [address] [place], [address] Urea nitrogen [Mass/Vol] 25 mg/dL High 7-18 [facility] Comment on above: Performed By: #### L 501.5200, L100.0100, L501.2300, L500.2500 ####[facility] [address] [place], [address] Bedside Glucoseon 07-02-2024 FINGERSTICK GLU 159 mg/dL High 74-106 [facility] Comment on above: Result Comment: TALIA GEMENT OF PATIENT CARE PER NURSING PROTOCOL Performed By: #### L 501.080 ####[facility] [address] [place], [address] FINGERSTICK GLU 190 mg/dL High 74-106 [facility] Comment on above: Result Comment: TALIA GEMENT OF PATIENT CARE PER NURSING PROTOCOL Performed By: #### L 501.080 ####[facility] [address] [place], [address] FINGERSTICK GLU 155 mg/dL High 74-106 [facility] Comment on above: Result Comment: TALIA GEMENT OF PATIENT CARE PER NURSING PROTOCOL Performed By: #### L 501.080 ####[facility] [address] [place], [address] FINGERSTICK GLU 128 mg/dL High 74-106 [facility] Comment on above: Result Comment: TALIA GEMENT OF PATIENT CARE PER NURSING PROTOCOL Performed By: #### L 501.080 ####[facility] [address] [place], [address] FINGERSTICK GLU 215 mg/dL High 74-106 [facility] Comment on above: Result Comment: TALIA GEMENT OF PATIENT CARE PER NURSING PROTOCOL Performed By: #### L 501.080 ####[facility] [address] [place], [address] CBC W/Diff, Automatedon 01-2 Absolute Lymph 2.11 X10 3/uL Normal 0.83-4.51 [facility] Comment on above: Performed By: #### L 501.5200, L100.0100, L501.2300, L500.2500 ####[facility] [address] [place], [address] Absolute Neut 2.4 X10 3/uL Normal 2.0-7.7 [facility] Comment on above: Performed By: #### L 501.5200, L100.0100, L501.2300, L500.2500 ####[facility] [address] [place], [address] Basophils/100 WBC (Bld) 0.4 % Normal 0-1 [facility] Comment on above: Performed By: #### L 501.5200, L100.0100, L501.2300, L500.2500 ####[facility] [address] [place], [address] Eosinophils/100 WBC (Bld) 0.6 % Normal 0-5 [facility] Comment on above: Performed By: #### L 501.5200, L100.0100, L501.2300, L500.2500 ####[facility] [address] [place], [address] Erythrocyte distribution width (RBC) [Ratio] 14.6 % Normal 11.6-14.6 [facility] Comment on above: Performed By: #### L 501.5200, L100.0100, L501.2300, L500.2500 ####[facility] [address] [place], [address] Hematocrit (Bld) [Volume fraction] 29.5 % Low 37-47 [facility] Comment on above: Performed By: #### L 501.5200, L100.0100, L501.2300, L500.2500 ####[facility] [address] [place], [address] Hemoglobin (Bld) [Mass/Vol] 9.5 g/dL Low 12.0-15.0 [facility] Comment on above: Performed By: #### L 501.5200, L100.0100, L501.2300, L500.2500 ####[facility] [address] [place], [address] IG% 0.400 Normal 0.0-0.9 [facility] Comment on above: Result Comment: IG% - Immature Granulocytes (promyelocytes, myelocytes andmetamyelocytes) > 1% indicates that a LEFT SHIFT is Present. Performed By: #### L 501.5200, L100.0100, L501.2300, L500.2500 ####[facility] [address] [place], [address] Lymphocytes/100 WBC (Bld) 42.8 % High 19-41 [facility] Comment on above: Performed By: #### L 501.5200, L100.0100, L501.2300, L500.2500 ####[facility] [address] [place], [address] MCH (RBC) [Entitic mass] 27.1 pg Normal 27.0-32.0 [facility] Comment on above: Performed By: #### L 501.5200, L100.0100, L501.2300, L500.2500 ####[facility] [address] [place], [address] MCHC (RBC) [Mass/Vol] 32.2 g/dL Normal 32-36 [facility] Comment on above: Performed By: #### L 501.5200, L100.0100, L501.2300, L500.2500 ####[facility] [address] [place], [address] MCV (RBC) [Entitic vol] 84.0 fL Normal 81-99 [facility] Comment on above: Performed By: #### L 501.5200, L100.0100, L501.2300, L500.2500 ####[facility] [address] [place], [address] Monocytes/100 WBC (Bld) 8.1 % Normal 0-10 [facility] Comment on above: Performed By: #### L 501.5200, L100.0100, L501.2300, L500.2500 ####[facility] [address] [place], [address] Neutrophils/100 WBC (Bld) 47.7 % Normal 47-70 [facility] Comment on above: Performed By: #### L 501.5200, L100.0100, L501.2300, L500.2500 ####[facility] [address] [place], [address] Nucleated RBC (Bld) [#/Vol] 0 10*3/uL Normal 0-5 [facility] Comment on above: Performed By: #### L 501.5200, L100.0100, L501.2300, L500.2500 ####[facility] [address] [place], [address] Platelet mean volume (Bld) [Entitic vol] 9.9 fL Normal 6.2-12.0 [facility] Comment on above: Performed By: #### L 501.5200, L100.0100, L501.2300, L500.2500 ####[facility] [address] [place], [address] Platelets (Bld) [#/Vol] 174 10*3/uL Normal 150-450 [facility] Comment on above: Performed By: #### L 501.5200, L100.0100, L501.2300, L500.2500 ####[facility] [address] [place], [address] RBC (Bld) [#/Vol] 3.51 10*6/uL Low 4.2-5.4 [facility] Comment on above: Performed By: #### L 501.5200, L100.0100, L501.2300, L500.2500 ####[facility] [address] [place], [address] RDW SD 44.8 fl High 35.1-43.9 [facility] Comment on above: Performed By: #### L 501.5200, L100.0100, L501.2300, L500.2500 ####[facility] [address] [place], [address] WBC (Bld) [#/Vol] 4.9 10*3/uL Normal 4.4-11.0 [facility] Comment on above: Performed By: #### L 501.5200, L100.0100, L501.2300, L500.2500 ####[facility] [address] [place], [address] Consultation - Infectious Dx on 07-02-2024 Consultation - Infectious Dx Normal [facility] Ferritinon 07-02-2024 Ferritin [Mass/Vol] 148 ng/mL Normal 8-252 [facility] Comment on above: Performed By: #### L 503.6030, L503.6550 ####[facility] [address] [place], [address] Ferritin measurementOrdered By: Nicole Trujillo on 07-02-2024 Ferritin measurement 148 ng/mL 8-252 [facility] Iron (Unsp spec) [Mass/Mass] Ordered By: Nicole Trujillo on 07-02-2024 Iron measurement (mass/mass) 106 ug/dL 50-170 [facility] Iron saturation [Mass fracti on]Ordered By: Nicole Trujillo on 07-02-2024 Serum or plasma iron saturation measurement (mass fraction) 39.8 % 15.0-55.0 [facility] Iron+Iron Binding Capacityon 07-02-2024 Iron [Mass/Vol] 106 ug/dL Normal 50-170 [facility] Comment on above: Performed By: #### L 503.6030, L503.6550 ####[facility] [address] [place], [address] IRON SATURATION 39.8 Normal 15.0-55.0 [facility] Comment on above: Performed By: #### L 503.6030, L503.6550 ####[facility] [address] [place], [address] TIBC 266 ug/dL Normal 250-450 [facility] Comment on above: Performed By: #### L 503.6030, L503.6550 ####[facility] [address] [place], [address] Magnesiumon 07-02-2024 Magnesium [Mass/Vol] 2.0 mg/dL Normal 1.6-2.6 [facility] Comment on above: Performed By: #### L 501.5200, L100.0100, L501.2300, L500.2500 ####[facility] [address] [place], [address] Magnesium measurementOrdered By: Nicole Trujillo on 07-02-2024 Magnesium measurement 2.0 mg/dL 1.6-2.6 [facility] Phosphoruson 07-02-2024 Phosphate [Mass/Vol] 2.8 mg/dL Normal 2.5-4.9 [facility] Comment on above: Performed By: #### L 501.5200, L100.0100, L501.2300, L500.2500 ####[facility] [address] [place], [address] Phosphorus measurementOrdere d By: Nicole Trujillo on 07-02-2024 Phosphorus measurement 2.8 mg/dL 2.5-4.9 [facility] TIBCOrdered By: Nicole Trujillo on 07-02-2024 TIBC 266 ug/dL 250-450 [facility] Urine Cultureon 07-02-2024 URC Normal [facility] Comment on above: Performed By: #### M 100.2200 ####[facility] [address] [place], [address] ALP [Catalytic activity/Vol] Ordered By: Nicole Trujillo on 07-01-2024 Serum or plasma alkaline phosphatase measurement 80 U/L 45-117 [facility] ALT [Catalytic activity/Vol] Ordered By: Nicole Trujillo on 07-01-2024 Serum or plasma alanine aminotransferase (ALT) measurement 22 U/L 13-56 [facility] Albumin [Mass/Vol]Ordered By : Nicole Trujillo on 07-01-2024 Serum or plasma albumin measurement (mass/volume) 2.7 g/dL Low 3.2-5.0 [facility] Albumin to globulin ratioOrd ered By: Nicole Trujillo on 07-01-2024 Albumin to globulin ratio 0.8 RATIO Low 0.9-2.4 [facility] Bedside Glucoseon 07-01-2024 FINGERSTICK GLU 254 mg/dL High 74-106 [facility] Comment on above: Result Comment: TALIA GEMENT OF PATIENT CARE PER NURSING PROTOCOL Performed By: #### L 501.080 ####[facility] [address] [place], [address] FINGERSTICK GLU 195 mg/dL High 74-106 [facility] Comment on above: Result Comment: TALIA GEMENT OF PATIENT CARE PER NURSING PROTOCOL Performed By: #### L 501.080 ####[facility] [address] [place], [address] FINGERSTICK GLU 117 mg/dL High 74-106 [facility] Comment on above: Result Comment: TALIA GEMENT OF PATIENT CARE PER NURSING PROTOCOL Performed By: #### L 501.080 ####[facility] [address] [place], [address] Bilirubin, totalOrdered By: Nicole Trujillo on 07-01-2024 Bilirubin, total 1.10 mg/dL High 0.20-1.00 [facility] CBC W/Diff, Automatedon 06-05 Absolute Lymph 1.40 X10 3/uL Normal 0.83-4.51 [facility] Comment on above: Performed By: #### L 500.4050, L501.2300, L100.0100, L501.9520, L501.5200 ####[facility] [address] [place], [address] Absolute Neut 3.1 X10 3/uL Normal 2.0-7.7 [facility] Comment on above: Performed By: #### L 500.4050, L501.2300, L100.0100, L501.9520, L501.5200 ####[facility] [address] [place], [address] Basophils/100 WBC (Bld) 0.4 % Normal 0-1 [facility] Comment on above: Performed By: #### L 500.4050, L501.2300, L100.0100, L501.9520, L501.5200 ####[facility] [address] [place], [address] Eosinophils/100 WBC (Bld) 0.2 % Normal 0-5 [facility] Comment on above: Performed By: #### L 500.4050, L501.2300, L100.0100, L501.9520, L501.5200 ####[facility] [address] [place], [address] Erythrocyte distribution width (RBC) [Ratio] 14.6 % Normal 11.6-14.6 [facility] Comment on above: Performed By: #### L 500.4050, L501.2300, L100.0100, L501.9520, L501.5200 ####[facility] [address] [place], [address] Hematocrit (Bld) [Volume fraction] 33.5 % Low 37-47 [facility] Comment on above: Performed By: #### L 500.4050, L501.2300, L100.0100, L501.9520, L501.5200 ####[facility] [address] [place], [address] Hemoglobin (Bld) [Mass/Vol] 10.7 g/dL Low 12.0-15.0 [facility] Comment on above: Performed By: #### L 500.4050, L501.2300, L100.0100, L501.9520, L501.5200 ####[facility] [address] [place], [address] IG% 0.200 Normal 0.0-0.9 [facility] Comment on above: Result Comment: IG% - Immature Granulocytes (promyelocytes, myelocytes andmetamyelocytes) > 1% indicates that a LEFT SHIFT is Present. Performed By: #### L 500.4050, L501.2300, L100.0100, L501.9520, L501.5200 ####[facility] [address] [place], [address] Lymphocytes/100 WBC (Bld) 28.5 % Normal 19-41 [facility] Comment on above: Performed By: #### L 500.4050, L501.2300, L100.0100, L501.9520, L501.5200 ####[facility] [address] [place], [address] MCH (RBC) [Entitic mass] 26.7 pg Low 27.0-32.0 [facility] Comment on above: Performed By: #### L 500.4050, L501.2300, L100.0100, L501.9520, L501.5200 ####[facility] [address] [place], [address] MCHC (RBC) [Mass/Vol] 31.9 g/dL Low 32-36 [facility] Comment on above: Performed By: #### L 500.4050, L501.2300, L100.0100, L501.9520, L501.5200 ####[facility] [address] [place], [address] MCV (RBC) [Entitic vol] 83.5 fL Normal 81-99 [facility] Comment on above: Performed By: #### L 500.4050, L501.2300, L100.0100, L501.9520, L501.5200 ####[facility] [address] [place], [address] Monocytes/100 WBC (Bld) 6.7 % Normal 0-10 [facility] Comment on above: Performed By: #### L 500.4050, L501.2300, L100.0100, L501.9520, L501.5200 ####[facility] [address] [place], [address] Neutrophils/100 WBC (Bld) 64.0 % Normal 47-70 [facility] Comment on above: Performed By: #### L 500.4050, L501.2300, L100.0100, L501.9520, L501.5200 ####[facility] [address] [place], [address] Nucleated RBC (Bld) [#/Vol] 0 10*3/uL Normal 0-5 [facility] Comment on above: Performed By: #### L 500.4050, L501.2300, L100.0100, L501.9520, L501.5200 ####[facility] [address] [place], [address] Platelet mean volume (Bld) [Entitic vol] 9.6 fL Normal 6.2-12.0 [facility] Comment on above: Performed By: #### L 500.4050, L501.2300, L100.0100, L501.9520, L501.5200 ####[facility] [address] [place], [address] Platelets (Bld) [#/Vol] 184 10*3/uL Normal 150-450 [facility] Comment on above: Performed By: #### L 500.4050, L501.2300, L100.0100, L501.9520, L501.5200 ####[facility] [address] [place], [address] RBC (Bld) [#/Vol] 4.01 10*6/uL Low 4.2-5.4 [facility] Comment on above: Performed By: #### L 500.4050, L501.2300, L100.0100, L501.9520, L501.5200 ####[facility] [address] [place], [address] RDW SD 44.7 fl High 35.1-43.9 [facility] Comment on above: Performed By: #### L 500.4050, L501.2300, L100.0100, L501.9520, L501.5200 ####[facility] [address] [place], [address] WBC (Bld) [#/Vol] 4.9 10*3/uL Normal 4.4-11.0 [facility] Comment on above: Performed By: #### L 500.4050, L501.2300, L100.0100, L501.9520, L501.5200 ####[facility] [address] [place], [address] Comprehensive Metabolic Prof ilon 07-01-2024 Albumin [Mass/Vol] 2.7 g/dL Low 3.2-5.0 [facility] Comment on above: Performed By: #### L 500.4050, L501.2300, L100.0100, L501.9520, L501.5200 ####[facility] [address] [place], [address] Albumin/Globulin [Mass ratio] 0.8 {ratio} Low 0.9-2.4 [facility] Comment on above: Performed By: #### L 500.4050, L501.2300, L100.0100, L501.9520, L501.5200 ####[facility] [address] [place], [address] ALK P 80 U/L Normal 45-117 [facility] Comment on above: Performed By: #### L 500.4050, L501.2300, L100.0100, L501.9520, L501.5200 ####[facility] [address] [place], [address] ALT [Catalytic activity/Vol] 22 U/L Normal 13-56 [facility] Comment on above: Performed By: #### L 500.4050, L501.2300, L100.0100, L501.9520, L501.5200 ####[facility] [address] [place], [address] AST [Catalytic activity/Vol] 24 U/L Normal 15-37 [facility] Comment on above: Performed By: #### L 500.4050, L501.2300, L100.0100, L501.9520, L501.5200 ####[facility] [address] [place], [address] Bilirubin [Mass/Vol] 1.10 mg/dL High 0.20-1.00 [facility] Comment on above: Result Comment: For patients on eltrombopag therapy, use of Dimension Sonoita TBIL is not recommended. Performed By: #### L 500.4050, L501.2300, L100.0100, L501.9520, L501.5200 ####[facility] [address] [place], [address] BUN/CRE 22.7 RATIO High 10-20 [facility] Comment on above: Performed By: #### L 500.4050, L501.2300, L100.0100, L501.9520, L501.5200 ####[facility] [address] [place], [address] CA,Total 8.5 mg/dL Normal 8.5-10.1 [facility] Comment on above: Performed By: #### L 500.4050, L501.2300, L100.0100, L501.9520, L501.5200 ####[facility] [address] [place], [address] Chloride [Moles/Vol] 107 mmol/L Normal 98-107 [facility] Comment on above: Performed By: #### L 500.4050, L501.2300, L100.0100, L501.9520, L501.5200 ####[facility] [address] [place], [address] CO2 [Moles/Vol] 21.0 mmol/L Normal 21.0-32.0 [facility] Comment on above: Performed By: #### L 500.4050, L501.2300, L100.0100, L501.9520, L501.5200 ####[facility] [address] [place], [address] Creatinine [Mass/Vol] 1.19 mg/dL High 0.55-1.02 [facility] Comment on above: Result Comment: The validity of the calculated GFR GFRAA in patients over70 years has not been determined. Clinical correlation isessential. Performed By: #### L 500.4050, L501.2300, L100.0100, L501.9520, L501.5200 ####[facility] [address] [place], [address] ECRCL 60.52 ml/min Normal [facility] Comment on above: Performed By: #### L 500.4050, L501.2300, L100.0100, L501.9520, L501.5200 ####[facility] [address] [place], [address] EST GFR - AA 61 mL/min Normal >60 [facility] Comment on above: Result Comment: Afri can [place] GFR Calc Performed By: #### L 500.4050, L501.2300, L100.0100, L501.9520, L501.5200 ####[facility] [address] [place], [address] GAP 9 Normal 5-15 [facility] Comment on above: Performed By: #### L 500.4050, L501.2300, L100.0100, L501.9520, L501.5200 ####[facility] [address] [place], [address] GFR/1.73 sq M.predicted among non-blacks MDRD (S/P/Bld) [Vol rate/Area] 51 mL/min/{1.73_m2} Low >60 [facility] Comment on above: Result Comment: Non- GFR Calc Performed By: #### L 500.4050, L501.2300, L100.0100, L501.9520, L501.5200 ####[facility] [address] [place], [address] Globulin (S) [Mass/Vol] 3.5 g/dL Normal 2.2-4.2 [facility] Comment on above: Performed By: #### L 500.4050, L501.2300, L100.0100, L501.9520, L501.5200 ####[facility] [address] [place], [address] Glucose [Mass/Vol] 159 mg/dL High 74-106 [facility] Comment on above: Result Comment: Fast ing Glucose result greater than or equal to 126 mg/dLsuggests DIABETES MELLITUS per A.D.A. criteria. Performed By: #### L 500.4050, L501.2300, L100.0100, L501.9520, L501.5200 ####[facility] [address] [place], [address] Potassium [Moles/Vol] 3.4 mmol/L Low 3.5-5.1 [facility] Comment on above: Performed By: #### L 500.4050, L501.2300, L100.0100, L501.9520, L501.5200 ####[facility] [address] [place], [address] Sodium [Moles/Vol] 136 mmol/L Normal 136-145 [facility] Comment on above: Performed By: #### L 500.4050, L501.2300, L100.0100, L501.9520, L501.5200 ####[facility] [address] [place], [address] T PROT 6.2 g/dL Low 6.4-8.2 [facility] Comment on above: Performed By: #### L 500.4050, L501.2300, L100.0100, L501.9520, L501.5200 ####[facility] [address] [place], [address] Urea nitrogen [Mass/Vol] 27 mg/dL High 7-18 [facility] Comment on above: Performed By: #### L 500.4050, L501.2300, L100.0100, L501.9520, L501.5200 ####[facility] [address] [place], [address] Magnesiumon 07-01-2024 Magnesium [Mass/Vol] 2.0 mg/dL Normal 1.6-2.6 [facility] Comment on above: Performed By: #### L 500.4050, L501.2300, L100.0100, L501.9520, L501.5200 ####[facility] [address] [place], [address] No Panel InformationOrdered By: Nicole Trujillo on 07-01-2024 24 U/L 15-37 [facility] Phosphoruson 07-01-2024 Phosphate [Mass/Vol] 2.4 mg/dL Low 2.5-4.9 [facility] Comment on above: Performed By: #### L 500.4050, L501.2300, L100.0100, L501.9520, L501.5200 ####[facility] [address] [place], [address] Serum globulin measurementOr dered By: Nicole Trujillo on 07-01-2024 Serum globulin measurement 3.5 g/dL 2.2-4.2 [facility] TSH QnOrdered By: Nicole Gardiner on 07-01-2024 Serum or plasma thyroid stimulating hormone (TSH) measurement (units/volume) 1.730 uIU/mL 0.358-3.74 0 [facility] Thyroid Stim Hormone (TSH)on 07-01-2024 TSH 1.730 uIU/mL Normal 0.358-3.74 0 [facility] Comment on above: Performed By: #### L 500.4050, L501.2300, L100.0100, L501.9520, L501.5200 ####[facility] [address], [address] Total proteinOrdered By: Jenae stephen Ronnie on 07-01-2024 Total protein 6.2 g/dL Low 6.4-8.2 [facility] Bedside Glucoseon 06-30-2024 FINGERSTICK GLU 149 mg/dL High 74-106 [facility] Comment on above: Result Comment: TALIA GEMENT OF PATIENT CARE PER NURSING PROTOCOL Performed By: #### L 501.080 ####[facility] [address] [place], [address] FINGERSTICK GLU 216 mg/dL High 74-106 [facility] Comment on above: Result Comment: TALIA GEMENT OF PATIENT CARE PER NURSING PROTOCOL Performed By: #### L 501.080 ####[facility] [address] [place], [address] FINGERSTICK GLU 288 mg/dL High 74-106 [facility] Comment on above: Result Comment: TALIA GEMENT OF PATIENT CARE PER NURSING PROTOCOL Performed By: #### L 501.080 ####[facility] [address] [place], [address] FINGERSTICK GLU 291 mg/dL High 74-106 [facility] Comment on above: Result Comment: TALIA GEMENT OF PATIENT CARE PER NURSING PROTOCOL Performed By: #### L 501.080 ####[facility] [address] [place], [address] CBC W/Diff, Automatedon 06-05 Absolute Lymph 1.35 X10 3/uL Normal 0.83-4.51 [facility] Comment on above: Performed By: #### L 100.0100, L500.4050, L501.5200 ####[facility] [address] [place], [address] Absolute Neut 3.3 X10 3/uL Normal 2.0-7.7 [facility] Comment on above: Performed By: #### L 100.0100, L500.4050, L501.5200 ####[facility] [address] [place], [address] Basophils/100 WBC (Bld) 0.2 % Normal 0-1 [facility] Comment on above: Performed By: #### L 100.0100, L500.4050, L501.5200 ####[facility] [address] [place], [address] Eosinophils/100 WBC (Bld) 0.2 % Normal 0-5 [facility] Comment on above: Performed By: #### L 100.0100, L500.4050, L501.5200 ####[facility] [address] [place], [address] Erythrocyte distribution width (RBC) [Ratio] 14.5 % Normal 11.6-14.6 [facility] Comment on above: Performed By: #### L 100.0100, L500.4050, L501.5200 ####[facility] [address] [place], [address] Hematocrit (Bld) [Volume fraction] 36.7 % Low 37-47 [facility] Comment on above: Performed By: #### L 100.0100, L500.4050, L501.5200 ####[facility] [address] [place], [address] Hemoglobin (Bld) [Mass/Vol] 12.0 g/dL Normal 12.0-15.0 [facility] Comment on above: Performed By: #### L 100.0100, L500.4050, L501.5200 ####[facility] [address] [place], [address] IG% 0.400 Normal 0.0-0.9 [facility] Comment on above: Result Comment: IG% - Immature Granulocytes (promyelocytes, myelocytes andmetamyelocytes) > 1% indicates that a LEFT SHIFT is Present. Performed By: #### L 100.0100, L500.4050, L501.5200 ####[facility] [address] [place], [address] Lymphocytes/100 WBC (Bld) 26.4 % Normal 19-41 [facility] Comment on above: Performed By: #### L 100.0100, L500.4050, L501.5200 ####[facility] [address] [place], [address] MCH (RBC) [Entitic mass] 27.0 pg Normal 27.0-32.0 [facility] Comment on above: Performed By: #### L 100.0100, L500.4050, L501.5200 ####[facility] [address] [place], [address] MCHC (RBC) [Mass/Vol] 32.7 g/dL Normal 32-36 [facility] Comment on above: Performed By: #### L 100.0100, L500.4050, L501.5200 ####[facility] [address] [place], [address] MCV (RBC) [Entitic vol] 82.5 fL Normal 81-99 [facility] Comment on above: Performed By: #### L 100.0100, L500.4050, L501.5200 ####[facility] [address] [place], [address] Monocytes/100 WBC (Bld) 7.8 % Normal 0-10 [facility] Comment on above: Performed By: #### L 100.0100, L500.4050, L501.5200 ####[facility] [address] [place], [address] Neutrophils/100 WBC (Bld) 65.0 % Normal 47-70 [facility] Comment on above: Performed By: #### L 100.0100, L500.4050, L501.5200 ####[facility] [address] [place], [address] Nucleated RBC (Bld) [#/Vol] 0 10*3/uL Normal 0-5 [facility] Comment on above: Performed By: #### L 100.0100, L500.4050, L501.5200 ####[facility] [address] [place], [address] Platelet mean volume (Bld) [Entitic vol] 9.6 fL Normal 6.2-12.0 [facility] Comment on above: Performed By: #### L 100.0100, L500.4050, L501.5200 ####[facility] [address] [place], [address] Platelets (Bld) [#/Vol] 215 10*3/uL Normal 150-450 [facility] Comment on above: Performed By: #### L 100.0100, L500.4050, L501.5200 ####[facility] [address] [place], [address] RBC (Bld) [#/Vol] 4.45 10*6/uL Normal 4.2-5.4 [facility] Comment on above: Performed By: #### L 100.0100, L500.4050, L501.5200 ####[facility] [address] [place], [address] RDW SD 43.2 fl Normal 35.1-43.9 [facility] Comment on above: Performed By: #### L 100.0100, L500.4050, L501.5200 ####[facility] [address] [place], [address] WBC (Bld) [#/Vol] 5.1 10*3/uL Normal 4.4-11.0 [facility] Comment on above: Performed By: #### L 100.0100, L500.4050, L501.5200 ####[facility] [address] [place], [address] Comprehensive Metabolic [facility] Ed ilon 06-30-2024 Albumin [Mass/Vol] 2.9 g/dL Low 3.2-5.0 [facility] Comment on above: Performed By: #### L 100.0100, L500.4050, L501.5200 ####[facility] [address] [place], [address] Albumin/Globulin [Mass ratio] 0.7 {ratio} Low 0.9-2.4 [facility] Comment on above: Performed By: #### L 100.0100, L500.4050, L501.5200 ####[facility] [address] [place], [address] ALK P 96 U/L Normal 45-117 [facility] Comment on above: Performed By: #### L 100.0100, L500.4050, L501.5200 ####[facility] [address] [place], [address] ALT [Catalytic activity/Vol] 25 U/L Normal 13-56 [facility] Comment on above: Performed By: #### L 100.0100, L500.4050, L501.5200 ####[facility] [address] [place], [address] AST [Catalytic activity/Vol] 32 U/L Normal 15-37 [facility] Comment on above: Performed By: #### L 100.0100, L500.4050, L501.5200 ####[facility] [address] [place], [address] Bilirubin [Mass/Vol] 0.90 mg/dL Normal 0.20-1.00 [facility] Comment on above: Result Comment: For patients on eltrombopag therapy, use of Dimension [place] TBIL is not recommended. Performed By: #### L 100.0100, L500.4050, L501.5200 ####[facility] [address] [place], [address] BUN/CRE 27.0 RATIO High 10-20 [facility] [facility] Comment on above: Performed By: #### L 100.0100, L500.4050, L501.5200 ####[facility] [address] [place], [address] CA,Total 9.0 mg/dL Normal 8.5-10.1 [facility] Comment on above: Performed By: #### L 100.0100, L500.4050, L501.5200 ####[facility] [address] [place], [address] Chloride [Moles/Vol] 102 mmol/L Normal 98-107 [facility] Comment on above: Performed By: #### L 100.0100, L500.4050, L501.5200 ####[facility] [address] [place], [address] CO2 [Moles/Vol] 27.0 mmol/L Normal 21.0-32.0 [facility] Comment on above: Performed By: #### L 100.0100, L500.4050, L501.5200 ####[facility] [address] [place], [address] Creatinine [Mass/Vol] 0.81 mg/dL Normal 0.55-1.02 [facility] Comment on above: Result Comment: The validity of the calculated GFR GFRAA in patients over70 years has not been determined. Clinical correlation isessential. Performed By: #### L 100.0100, L500.4050, L501.5200 ####[facility] [address] [place], [address] ECRCL 88.19 ml/min Normal [facility] Comment on above: Performed By: #### L 100.0100, L500.4050, L501.5200 ####[facility] [address] [place], [address] EST GFR - AA 95 mL/min Normal >60 [facility] Comment on above: Result Comment: Afri can [place]an GFR Calc Performed By: #### L 100.0100, L500.4050, L501.5200 ####[facility] [address] [place], [address] GAP 5 Normal 5-15 [facility] Comment on above: Performed By: #### L 100.0100, L500.4050, L501.5200 ####[facility] [address] [place], [address] GFR/1.73 sq M.predicted among non-blacks MDRD (S/P/Bld) [Vol rate/Area] 78 mL/min/{1.73_m2} Normal >60 [facility] Comment on above: Result Comment: Non- GFR Calc Performed By: #### L 100.0100, L500.4050, L501.5200 ####[facility] [address] [place], [address] Globulin (S) [Mass/Vol] 4.3 g/dL High 2.2-4.2 [facility] Comment on above: Performed By: #### L 100.0100, L500.4050, L501.5200 ####[facility] [address] [place], [address] Glucose [Mass/Vol] 291 mg/dL High 74-106 [facility] Comment on above: Result Comment: Gluc ose result greater than or equal to 200 mg/dLsuggests DIABETES MELLITUS per A.D.A. criteria. Performed By: #### L 100.0100, L500.4050, L501.5200 ####[facility] [address] [place], [address] Potassium [Moles/Vol] 3.2 mmol/L Low 3.5-5.1 [facility] Comment on above: Performed By: #### L 100.0100, L500.4050, L501.5200 ####[facility] [address] [place], [address] Sodium [Moles/Vol] 134 mmol/L Low 136-145 [facility] Comment on above: Performed By: #### L 100.0100, L500.4050, L501.5200 ####[facility] [address] [place], [address] T PROT 7.2 g/dL Normal 6.4-8.2 [facility] Comment on above: Performed By: #### L 100.0100, L500.4050, L501.5200 ####[facility] [address] [place], [address] Urea nitrogen [Mass/Vol] 22 mg/dL High 7-18 [facility] Comment on above: Performed By: #### L 100.0100, L500.4050, L501.5200 ####[facility] [address] [place], [address] Magnesiumon 06-30-2024 Magnesium [Mass/Vol] 2.1 mg/dL Normal 1.6-2.6 [facility] Comment on above: Performed By: #### L 100.0100, L500.4050, L501.5200 ####[facility] [address] [place], [address] 12 Lead EKGon 06-29-2024 12 Lead EKG Normal [facility] Abdomen/Pelvis W IV Cont ONL Yon 06-29-2024 Abdomen/Pelvis W IV Cont ONLY Normal [facility] Bacteria LM.HPF (Urine sed) [#/Area]Ordered By: Davis Ibarra on 06-29-2024 Urine sediment bacteria count by microscopy (number/high power field) 3+ /hpf None Seen [facility] Bedside Glucoseon 06-29-2024 FINGERSTICK GLU 278 mg/dL High 74-106 [facility] Comment on above: Result Comment: TALIA CHAMBERS OF PATIENT CARE PER NURSING PROTOCOL Performed By: #### L 501.080 ####[facility] [address] [place], [address] Beta HCG ( test) Ql Ordered By: Davis Ibarra on 06-29-2024 Serum beta-hCG test, qualitative Negative [facility] CBC W/Diff, Automatedon 06-05 Absolute Lymph 1.05 X10 3/uL Normal 0.83-4.51 [facility] Comment on above: Performed By: #### L 700.6800, L501.2450, L100.0100, L501.5425, L500.4050 ####[facility] [address] [place], [address] Absolute Neut 4.8 X10 3/uL Normal 2.0-7.7 [facility] Comment on above: Performed By: #### L 700.6800, L501.2450, L100.0100, L501.5425, L500.4050 ####[facility] [address] [place], [address] Basophils/100 WBC (Bld) 0.2 % Normal 0-1 [facility] Comment on above: Performed By: #### L 700.6800, L501.2450, L100.0100, L501.5425, L500.4050 ####[facility] [address] [place], [address] Eosinophils/100 WBC (Bld) 0.5 % Normal 0-5 [facility] Comment on above: Performed By: #### L 700.6800, L501.2450, L100.0100, L501.5425, L500.4050 ####[facility] [address] [place], [address] Erythrocyte distribution width (RBC) [Ratio] 14.3 % Normal 11.6-14.6 [facility] Comment on above: Performed By: #### L 700.6800, L501.2450, L100.0100, L501.5425, L500.4050 ####[facility] [address] [place], [address] Hematocrit (Bld) [Volume fraction] 36.4 % Low 37-47 [facility] Comment on above: Performed By: #### L 700.6800, L501.2450, L100.0100, L501.5425, L500.4050 ####[facility] [address] [place], [address] Hemoglobin (Bld) [Mass/Vol] 12.8 g/dL Normal 12.0-15.0 [facility] Comment on above: Performed By: #### L 700.6800, L501.2450, L100.0100, L501.5425, L500.4050 ####[facility] [address] [place], [address] IG% 0.300 Normal 0.0-0.9 [facility] Comment on above: Result Comment: IG% - Immature Granulocytes (promyelocytes, myelocytes andmetamyelocytes) > 1% indicates that a LEFT SHIFT is Present. Performed By: #### L 700.6800, L501.2450, L100.0100, L501.5425, L500.4050 ####[facility] [address] [place], [address] Lymphocytes/100 WBC (Bld) 16.6 % Low 19-41 [facility] Comment on above: Performed By: #### L 700.6800, L501.2450, L100.0100, L501.5425, L500.4050 ####[facility] [address] [place], [address] MCH (RBC) [Entitic mass] 28.3 pg Normal 27.0-32.0 [facility] Comment on above: Performed By: #### L 700.6800, L501.2450, L100.0100, L501.5425, L500.4050 ####[facility] [address] [place], [address] MCHC (RBC) [Mass/Vol] 35.2 g/dL Normal 32-36 [facility] Comment on above: Performed By: #### L 700.6800, L501.2450, L100.0100, L501.5425, L500.4050 ####[facility] [address] [place], [address] MCV (RBC) [Entitic vol] 80.5 fL Low 81-99 [facility] Comment on above: Performed By: #### L 700.6800, L501.2450, L100.0100, L501.5425, L500.4050 ####[facility] [address] [place], [address] Monocytes/100 WBC (Bld) 6.2 % Normal 0-10 [facility] Comment on above: Performed By: #### L 700.6800, L501.2450, L100.0100, L501.5425, L500.4050 ####[facility] [address] [place], [address] Neutrophils/100 WBC (Bld) 76.2 % High 47-70 [facility] Comment on above: Performed By: #### L 700.6800, L501.2450, L100.0100, L501.5425, L500.4050 ####[facility] [address] [place], [address] Nucleated RBC (Bld) [#/Vol] 0 10*3/uL Normal 0-5 [facility] Comment on above: Performed By: #### L 700.6800, L501.2450, L100.0100, L501.5425, L500.4050 ####[facility] [address] [place], [address] Platelet mean volume (Bld) [Entitic vol] 9.4 fL Normal 6.2-12.0 [facility] Comment on above: Performed By: #### L 700.6800, L501.2450, L100.0100, L501.5425, L500.4050 ####[facility] [address] [place], [address] Platelets (Bld) [#/Vol] 207 10*3/uL Normal 150-450 [facility] Comment on above: Performed By: #### L 700.6800, L501.2450, L100.0100, L501.5425, L500.4050 ####[facility] [address] [place], [address] RBC (Bld) [#/Vol] 4.52 10*6/uL Normal 4.2-5.4 [facility] Comment on above: Performed By: #### L 700.6800, L501.2450, L100.0100, L501.5425, L500.4050 ####[facility] [address] [place], [address] RDW SD 42.1 fl Normal 35.1-43.9 [facility] Comment on above: Performed By: #### L 700.6800, L501.2450, L100.0100, L501.5425, L500.4050 ####[facility] [address] [place], [address] WBC (Bld) [#/Vol] 6.3 10*3/uL Normal 4.4-11.0 [facility] Comment on above: Performed By: #### L 700.6800, L501.2450, L100.0100, L501.5425, L500.4050 ####[facility] [address] [place], [address] Chest 1 View (Portable)on Chest 1 View (Portable) Normal [facility] Clarity (U)Ordered By: Madhav Ibarra on 06-29-2024 Urine clarity Cloudy Clear [facility] Color (U)Ordered By: Davis Ibarra on 06-29-2024 Urine color determination Yellow Yellow [facility] Comprehensive Metabolic Prof ilon 06-29-2024 Albumin [Mass/Vol] 3.3 g/dL Normal 3.2-5.0 [facility] Comment on above: Order Comment: 1Y Performed By: #### L 700.6800, L501.2450, L100.0100, L501.5425, L500.4050 ####[facility] [address] [place], [address] Albumin/Globulin [Mass ratio] 0.8 {ratio} Low 0.9-2.4 [facility] Comment on above: Order Comment: 1Y Performed By: #### L 700.6800, L501.2450, L100.0100, L501.5425, L500.4050 ####[facility] [address] [place], [address] ALK P 113 U/L Normal 45-117 [facility] Comment on above: Order Comment: 1Y Performed By: #### L 700.6800, L501.2450, L100.0100, L501.5425, L500.4050 ####[facility] [address] [place], [address] ALT [Catalytic activity/Vol] 26 U/L Normal 13-56 [facility] Comment on above: Order Comment: 1Y Performed By: #### L 700.6800, L501.2450, L100.0100, L501.5425, L500.4050 ####[facility] [address] [place], [address] AST [Catalytic activity/Vol] 34 U/L Normal 15-37 [facility] Comment on above: Order Comment: 1Y Performed By: #### L 700.6800, L501.2450, L100.0100, L501.5425, L500.4050 ####[facility] [address] [place], [address] Bilirubin [Mass/Vol] 0.80 mg/dL Normal 0.20-1.00 [facility] Comment on above: Order Comment: 1Y Result Comment: For patients on eltrombopag therapy, use of Dimension [place] TBIL is not recommended. Performed By: #### L 700.6800, L501.2450, L100.0100, L501.5425, L500.4050 ####[facility] [address] [place], [address] BUN/CRE 27.6 RATIO High 10-20 [facility] Comment on above: Order Comment: 1Y Performed By: #### L 700.6800, L501.2450, L100.0100, L501.5425, L500.4050 ####[facility] [address] [place], [address] CA,Total 9.6 mg/dL Normal 8.5-10.1 [facility] Comment on above: Order Comment: 1Y Performed By: #### L 700.6800, L501.2450, L100.0100, L501.5425, L500.4050 ####[facility] [address] [place], [address] Chloride [Moles/Vol] 98 mmol/L Normal 98-107 [facility] Comment on above: Order Comment: 1Y Performed By: #### L 700.6800, L501.2450, L100.0100, L501.5425, L500.4050 ####[facility] [address] [place], [address] CO2 [Moles/Vol] 25.0 mmol/L Normal 21.0-32.0 [facility] Comment on above: Order Comment: 1Y Performed By: #### L 700.6800, L501.2450, L100.0100, L501.5425, L500.4050 ####[facility] [address] [place], [address] Creatinine [Mass/Vol] 0.91 mg/dL Normal 0.55-1.02 [facility] Comment on above: Order Comment: 1Y Result Comment: The validity of the calculated GFR GFRAA in patients over70 years has not been determined. Clinical correlation isessential. Performed By: #### L 700.6800, L501.2450, L100.0100, L501.5425, L500.4050 ####[facility] [address] [place], [address] ECRCL 79.48 ml/min Normal [facility] Comment on above: Order Comment: 1Y Performed By: #### L 700.6800, L501.2450, L100.0100, L501.5425, L500.4050 ####[facility] [address] [place], [address] EST GFR - AA 84 mL/min Normal >60 [facility] Comment on above: Order Comment: 1Y Result Comment: Afri can [place]an GFR Calc Performed By: #### L 700.6800, L501.2450, L100.0100, L501.5425, L500.4050 ####[facility] [address] [place], [address] GAP 9 Normal 5-15 [facility] Comment on above: Order Comment: 1Y Performed By: #### L 700.6800, L501.2450, L100.0100, L501.5425, L500.4050 ####[facility] [address] [place], [address] GFR/1.73 sq M.predicted among non-blacks MDRD (S/P/Bld) [Vol rate/Area] 69 mL/min/{1.73_m2} Normal >60 [facility] Comment on above: Order Comment: 1Y Result Comment: Non- GFR Calc Performed By: #### L 700.6800, L501.2450, L100.0100, L501.5425, L500.4050 ####[facility] [address] [place], [address] Globulin (S) [Mass/Vol] 4.4 g/dL High 2.2-4.2 [facility] Comment on above: Order Comment: 1Y Performed By: #### L 700.6800, L501.2450, L100.0100, L501.5425, L500.4050 ####[facility] [address] [place], [address] Glucose [Mass/Vol] 363 mg/dL High 74-106 [facility] Comment on above: Order Comment: 1Y Result Comment: Gluc ose result greater than or equal to 200 mg/dLsuggests DIABETES MELLITUS per A.D.A. criteria. Performed By: #### L 700.6800, L501.2450, L100.0100, L501.5425, L500.4050 ####[facility] [address] [place], [address] Potassium [Moles/Vol] 3.6 mmol/L Normal 3.5-5.1 [facility] Comment on above: Order Comment: 1Y Performed By: #### L 700.6800, L501.2450, L100.0100, L501.5425, L500.4050 ####[facility] [address] [place], [address] Sodium [Moles/Vol] 131 mmol/L Low 136-145 [facility] Comment on above: Order Comment: 1Y Performed By: #### L 700.6800, L501.2450, L100.0100, L501.5425, L500.4050 ####[facility] [address] [place], [address] T PROT 7.7 g/dL Normal 6.4-8.2 [facility] Comment on above: Order Comment: 1Y Performed By: #### L 700.6800, L501.2450, L100.0100, L501.5425, L500.4050 ####[facility] [address] [place], [address] Urea nitrogen [Mass/Vol] 25 mg/dL High 7-18 [facility] Comment on above: Order Comment: 1Y Performed By: #### L 700.6800, L501.2450, L100.0100, L501.5425, L500.4050 ####[facility] [address] [place], [address] Emergency Department Summary on 06-29-2024 Emergency Department Summary Normal [facility] Glucose Ql (U)Ordered By: Matt Ibarra on 06-29-2024 Urine glucose detection 1000 mg/dl High Normal [facility] H AND P Exam - Hospitaliston 06-29-2024 H&P Exam - Hospitalist Normal [facility] L501.5425on 06-29-2024 TROPONIN-I HS 28 pg/mL Normal 3.0-54.0 [facility] Comment on above: Order Comment: 1Y Result Comment: Plea Note: New Test Units and Gender Specific Reference Ranges. For more information see Policy Stat Procedure [place] High Sensitivity Troponin (TNIH) and attachments. Performed By: #### L 700.6800, L501.2450, L100.0100, L501.5425, L500.4050 ####[facility] [address] [place], [place], [id number] Leukocyte esterase Test stri p Ql (U)Ordered By: Davis Ibarra on 06-29-2024 Urine leukocyte esterase detection by dipstick 500 /ul High Negative [facility] Lipaseon 06-29-2024 Lipase [Catalytic activity/Vol] 23 U/L Normal 13-75 [facility] Comment on above: Order Comment: 1Y Result Comment: Gege edgar note:LIPASE revised reference range effective 22.New Lipase methodology. Expected to produce lower valuesthan the previous assay method.NEW Reference Range: 13 - 75 U/L Performed By: #### L 700.6800, L501.2450, L100.0100, L501.5425, L500.4050 ####[facility] [address] [place], [place], [id number] Lipase measurementOrdered By : Davis Ibarra on 06-29-2024 Lipase measurement 23 U/L 13-75 [facility] Microscopic analysis of urin e for red blood cells (RBC)Ordered By: Davis Ibarra on 06-29-2024 Microscopic analysis of urine for red blood cells (RBC) 0-5 SEEN /hpf 5-10 [facility] Mucus LM Ql (Urine sed)Order ed By: Davis Ibarra on 06-29-2024 Mucus detection in urine sediment by light microscopy 1+ /hpf [facility] Nitrite Test strip Ql (U)Ord ered By: Davis Ibarra on 06-29-2024 Urine nitrite test by dipstick Positive High Negative [facility] ,Serum,hCG Quali.on 06-29-2024 HCG, SERUM QUAL Negative Normal [facility] Comment on above: Performed By: #### L 700.6800, L501.2450, L100.0100, L501.5425, L500.4050 ####[facility] [address] [place], [place], [id number] Protein Test strip Ql (U)Ord ered By: Davis Ibarra on 06-29-2024 Urine protein assay by test strip, semi-quantitative 100 mg/dl High Negative [facility] Specific gravity (U) [Rel de nsity]Ordered By: Davis Ibarra on 06-29-2024 Urine specific gravity measurement 1.015 1.002-1.03 0 [facility] Tropinin I.cardiac panel Hig h sensitivity methodOrdered By: Davis Ibarra on 06-29-2024 Serum or plasma cardiac troponin I panel by high sensitivity method 28 pg/mL 3.0-54.0 [facility] Urinalysis, Completeon 06-29 BACTERIA 3+ /hpf Normal None Seen [facility] Comment on above: Order Comment: CLEAN CATCH Performed By: #### L 400.0001 ####[facility] [address] [place], [address] EPI,SQUAMOUS 0-5 SEEN Normal 5-10 [facility] Comment on above: Order Comment: CLEAN CATCH Performed By: #### L 400.0001 ####[facility] [address] [place], [address] Mucus Ql (Urine sed) 1+ /hpf Normal [facility] Comment on above: Order Comment: CLEAN CATCH Performed By: #### L 400.0001 ####[facility] [address] [place], [address] RBC 0-5 SEEN Normal 0-5 [facility] Comment on above: Order Comment: CLEAN CATCH Performed By: #### L 400.0001 ####[facility] [address] [place], [address] WBC 10-25 SEEN Normal 0-5 [facility] Comment on above: Order Comment: CLEAN CATCH Performed By: #### L 400.0001 ####[facility] [address] [place], [address] Urine blood detectionOrdered By: Davis Ibarra on 06-29-2024 Urine blood detection 50 /ul High Negative [facility] Urine cultureOrdered By: [place] on 06-29-2024 Urine culture ESBL Escherichia coli Abnormal [facility] Urine total bilirubin detect ion by test stripOrdered By: Davis Ibarra on 06-29-2024 Urine total bilirubin detection by test strip Negative Negative [facility] Urobilinogen Ql (U)Ordered B y: Davis Ibarra on 06-29-2024 Urine urobilinogen measurement Normal mg/dl Normal [facility] White blood cell countOrdere d By: Davis Ibarra on 06-29-2024 White blood cell count 10-25 SEEN /hpf 0-5 [facility] pH (U)Ordered By: Adrien on 06-29-2024 Urine pH 6.0 5.0 - 8.0 [facility] .Auto Diffon 05-23-2024 Basophil, Absolute 0.1 10 3/mcL Normal 0.0-0.2 [facility] Comment on above: Performed By: #### C BC, MORPH, CMP, TROPHS, ADIFF, GFR, LIP, MDW, ANEU #### [address] [address] Basophils/100 WBC (Bld) 0.8 % Normal 0.0-2.5 [facility] Comment on above: Performed By: #### C BC, MORPH, CMP, TROPHS, ADIFF, GFR, LIP, MDW, ANEU #### [address] [address] Eosinophil, Absolute 0.2 10 3/mcL Normal 0.0-0.[address] [facility] Comment on above: Performed By: #### C BC, MORPH, CMP, TROPHS, ADIFF, GFR, LIP, MDW, ANEU #### [address] [address] Eosinophils/100 WBC (Bld) 1.1 % Normal 0.0-7.0 [facility] Comment on above: Performed By: #### C BC, MORPH, CMP, TROPHS, ADIFF, GFR, LIP, MDW, ANEU #### [address] [place] [address] Lymphocyte, Absolute 1.7 10 3/mcL Normal 0.9-4.[address] [facility] Comment on above: Performed By: #### C BC, MORPH, CMP, TROPHS, ADIFF, GFR, LIP, MDW, ANEU #### [address] [address] Lymphocytes/100 WBC (Bld) 11.5 % Low 20.0-40.0 [facility] Comment on above: Performed By: #### C BC, MORPH, CMP, TROPHS, ADIFF, GFR, LIP, MDW, ANEU #### [address] [address] Monocyte, Absolute 0.9 10 3/mcL Normal 0.1-1.4 [facility] Comment on above: Performed By: #### C BC, MORPH, CMP, TROPHS, ADIFF, GFR, LIP, MDW, ANEU #### [address] [address] Monocytes/100 WBC (Bld) 6.2 % Normal 2.0-13.0 [facility] Comment on above: Performed By: #### C BC, MORPH, CMP, TROPHS, ADIFF, GFR, LIP, MDW, ANEU #### [address] [address] Neutrophils/100 WBC (Bld) 80.4 % High 50.0-75.0 [facility] Comment on above: Performed By: #### C BC, MORPH, CMP, TROPHS, ADIFF, GFR, LIP, MDW, ANEU #### [address] [address] .GFRon 05-23-2024 GFR Non- 26 ml/min/1.73sqm Normal [facility] Comment on above: Result Comment: GFR Population [...] TROPHS, ADIFF, GFR, LIP, MDW, ANEU #### [address] [address] GFR 31 ml/min/1.73sqm Normal [facility] Comment on above: Result Comment: GFR Population [...] TROPHS, ADIFF, GFR, LIP, MDW, ANEU #### [address] [address] .MDWon 05-23-2024 Monocyte Distribution Width 18.96 Normal 0.00-20.00 [facility] Comment on above: Result Comment: For ED adult patients suspected of sepsis, MDW<=20.0 does not rule out sepsis or risk of sepsis Performed By: #### C BC, MORPH, CMP, TROPHS, ADIFF, GFR, LIP, MDW, ANEU #### [address] [address] .Morphon 05-23-2024 Platelet Estimate Normal Normal [facility] Comment on above: Performed By: #### C BC, MORPH, CMP, TROPHS, ADIFF, GFR, LIP, MDW, ANEU #### [place] [address] .NEUABSon 05-23-2024 Neutrophil, Absolute 11.7 10 3/mcL High 2.3-8.1 [facility] Comment on above: Performed By: #### C BC, MORPH, CMP, TROPHS, ADIFF, GFR, LIP, MDW, ANEU #### [place] [address] CBCon 05-23-2024 Erythrocyte distribution width (RBC) [Ratio] 15.3 % Normal 11.5-15.5 [facility] Comment on above: Performed By: #### C BC, MORPH, CMP, TROPHS, ADIFF, GFR, LIP, MDW, ANEU #### [place] [address] Hematocrit (Bld) [Volume fraction] 35.1 % Normal 34.0-46.0 [facility] Comment on above: Performed By: #### C BC, MORPH, CMP, TROPHS, ADIFF, GFR, LIP, MDW, ANEU #### [place] [address] Hgb 11.3 G/dL Low 12.0-16.0 [facility] Comment on above: Performed By: #### C BC, MORPH, CMP, TROPHS, ADIFF, GFR, LIP, MDW, ANEU #### [place] [address] MCH (RBC) [Entitic mass] 27.2 pg Normal 27.0-33.0 [facility] Comment on above: Performed By: #### C BC, MORPH, CMP, TROPHS, ADIFF, GFR, LIP, MDW, ANEU #### [place] [address] MCHC 32.3 G/dL Normal 32.0-36.0 [facility] Comment on above: Performed By: #### C BC, MORPH, CMP, TROPHS, ADIFF, GFR, LIP, MDW, ANEU #### [address] [address] MCV (RBC) [Entitic vol] 84.2 fL Normal 80.0-99.0 [facility] Comment on above: Performed By: #### C BC, MORPH, CMP, TROPHS, ADIFF, GFR, LIP, MDW, ANEU #### [address] [address] Platelet 229 10 3/mcL Normal 150-450 [facility] Comment on above: Performed By: #### C BC, MORPH, CMP, TROPHS, ADIFF, GFR, LIP, MDW, ANEU #### [place] [address] Platelet mean volume (Bld) [Entitic vol] 7.3 fL Normal 6.6-10.5 [facility] Comment on above: Performed By: #### C BC, MORPH, CMP, TROPHS, ADIFF, GFR, LIP, MDW, ANEU #### [place] [address] RBC 4.17 10 6/mcL Normal 4.10-5.30 [facility] Comment on above: Performed By: #### C BC, MORPH, CMP, TROPHS, ADIFF, GFR, LIP, MDW, ANEU #### [address] [address] WBC 14.5 10 3/mcL High 4.5-10.8 [facility] Comment on above: Performed By: #### C BC, MORPH, CMP, TROPHS, ADIFF, GFR, LIP, MDW, ANEU #### [address] [address] CMPon 05-23-2024 Albumin Level 2.7 G/dL Low 3.5-5.0 [facility] Comment on above: Order Comment: 05/23 20:12:51 EST hemolyzed. EH Performed By: #### C BC, MORPH, CMP, TROPHS, ADIFF, GFR, LIP, MDW, ANEU #### [address] [address] Albumin/Globulin [Mass ratio] 0.7 {ratio} Low 1.1-2.5 [facility] Comment on above: Order Comment: 05/23 20:12:51 EST hemolyzed. EH Performed By: #### C BC, MORPH, CMP, TROPHS, ADIFF, GFR, LIP, MDW, ANEU #### [address] [address] ALP [Catalytic activity/Vol] 128 U/L Normal 40-135 [facility] Comment on above: Order Comment: 05/23 20:12:51 EST hemolyzed. EH Performed By: #### C BC, MORPH, CMP, TROPHS, ADIFF, GFR, LIP, MDW, ANEU #### [address] [address] ALT [Catalytic activity/Vol] 22 U/L Normal 14-59 [facility] Comment on above: Order Comment: 05/23 20:12:51 EST hemolyzed. EH Performed By: #### C BC, MORPH, CMP, TROPHS, ADIFF, GFR, LIP, MDW, ANEU #### [address] [address] AST [Catalytic activity/Vol] 21 U/L Normal 10-40 [facility] Comment on above: Order Comment: 05/23 20:12:51 EST hemolyzed. EH Performed By: #### C BC, MORPH, CMP, TROPHS, ADIFF, GFR, LIP, MDW, ANEU #### [address] [address] Bili Total 0.9 mg/dL Normal 0.2-1.0 [facility] Comment on above: Order Comment: 05/23 20:12:51 EST hemolyzed. EH Result Comment: Use of this assay is not recommended for patients undergoing treatment with eltrombopag due to the potential for falsely elevated results. Performed By: #### C BC, MORPH, CMP, TROPHS, ADIFF, GFR, LIP, MDW, ANEU #### [address] [address] BUN/Creatinine Ratio 20 ratio Normal 7-27 [facility] Comment on above: Order Comment: 05/23 20:12:51 EST hemolyzed. EH Performed By: #### C BC, MORPH, CMP, TROPHS, ADIFF, GFR, LIP, MDW, ANEU #### [address] [address] Calcium [Mass/Vol] 8.7 mg/dL Normal 8.4-10.[address] [facility] Comment on above: Order Comment: 05/23 20:12:51 EST hemolyzed. EH Performed By: #### C BC, MORPH, CMP, TROPHS, ADIFF, GFR, LIP, MDW, ANEU #### [address] [address] Chloride [Moles/Vol] 102 mmol/L Normal 98-107 [facility] Comment on above: Order Comment: 05/23 20:12:51 EST hemolyzed. EH Performed By: #### C BC, MORPH, CMP, TROPHS, ADIFF, GFR, LIP, MDW, ANEU #### [address] [address] CO2 [Moles/Vol] 24 mmol/L Normal 22-29 [facility] Comment on above: Order Comment: 05/23 20:12:51 EST hemolyzed. EH Performed By: #### C BC, MORPH, CMP, TROPHS, ADIFF, GFR, LIP, MDW, ANEU #### [address] [address] Creatinine [Mass/Vol] 2.02 mg/dL High 0.55-1.02 [facility] Comment on above: Order Comment: 05/23 20:12:51 EST hemolyzed. EH Result Comment: Test ing performed on Siemens Dimension EXL analyzer using a modified kinetic Breanne technique. Performed By: #### C BC, MORPH, CMP, TROPHS, ADIFF, GFR, LIP, MDW, ANEU #### [address] [address] Electrolyte Balance 8.0 mEq/L Normal 4.0-15.0 [facility] Comment on above: Order Comment: 05/23 20:12:51 EST hemolyzed. EH Performed By: #### C BC, MORPH, CMP, TROPHS, ADIFF, GFR, LIP, MDW, ANEU #### [address] [address] Globulin 4.0 G/dL Normal [facility] Comment on above: Order Comment: 05/23 20:12:51 EST hemolyzed. EH Performed By: #### C BC, MORPH, CMP, TROPHS, ADIFF, GFR, LIP, MDW, ANEU #### [address] [address] Glucose [Mass/Vol] 181 mg/dL High 70-[address] [facility] Comment on above: Order Comment: 05/23 20:12:51 EST hemolyzed. EH Performed By: #### C BC, MORPH, CMP, TROPHS, ADIFF, GFR, LIP, MDW, ANEU #### [address] [address] Potassium [Moles/Vol] 5.2 mmol/L High 3.5-5.1 [facility] Comment on above: Order Comment: 05/23 20:12:51 EST hemolyzed. EH Performed By: #### C BC, MORPH, CMP, TROPHS, ADIFF, GFR, LIP, MDW, ANEU #### [address] [address] Sodium [Moles/Vol] 134 mmol/L Low 136-[address] [facility] Comment on above: Order Comment: 05/23 20:12:51 EST hemolyzed. EH Performed By: #### C BC, MORPH, CMP, TROPHS, ADIFF, GFR, LIP, MDW, ANEU #### [address] [address] Total Protein 6.7 G/dL Normal 6.4-8.2 [facility] Comment on above: Order Comment: 05/23 20:12:51 EST hemolyzed. EH Performed By: #### C BC, MORPH, CMP, TROPHS, ADIFF, GFR, LIP, MDW, ANEU #### [place] [place] [id number] [place], [place] [address] Urea nitrogen [Mass/Vol] 40 mg/dL High 7-18 [facility] Comment on above: Order Comment: 05/23 20:12:51 EST hemolyzed. EH Performed By: #### C BC, MORPH, CMP, TROPHS, ADIFF, GFR, LIP, MDW, ANEU #### [place] [id number] [place], [place] [address] LABORATORYOrdered By: SYSTEM SYSTEM on 05-23-2024 Albumin [...] ng/L Male: 0-76 ng/L Testing performed on Dimension EXL using a homogeneous sandwich chemiluminescent immunoassay based on Optics 1 technology. LABORATORYOrdered By: Yohana Easley on 05-23-2024 Platelets LM Ql (Bld) Normal (05/23/24 8:06 PM) Normal AO Hematology S LIPon 05-23-2024 Lipase Level 56 U/L Normal 16-77 [facility] Comment on above: Performed By: #### C BC, MORPH, CMP, TROPHS, ADIFF, GFR, LIP, MDW, ANEU #### [address] [address] TROPHSon 05-23-2024 High Sensitivity Troponin I 18 ng/L Normal 0-51 [facility] Comment on above: Result Comment: High Sensitive Troponin I Reference Ranges: Female: 0-51 ng/L Male: 0-76 ng/L Testing performed on Dimension EXL using a homogeneous sandwich chemiluminescent immunoassay based on Optics 1 technology. Performed By: #### C BC, MORPH, CMP, TROPHS, ADIFF, GFR, LIP, MDW, ANEU #### [place] [id number] [place], [place] [address] Basic Metabolic Profile (BMP )on 05-06-2024 BUN Normal 7-18 [facility] Comment on above: Result Comment: Canc elled via OM: Order cancelled - Patient discharged Performed By: #### L 100.0100, L500.2500 ####[facility] [address] [place], [address] BUN/CRE Normal 10-20 [facility] Comment on above: Result Comment: Canc elled via OM: Order cancelled - Patient discharged Performed By: #### L 100.0100, L500.2500 ####[facility] [address] [place], [address] CA,Total Normal 8.5-10.1 [facility] Comment on above: Result Comment: Canc elled via OM: Order cancelled - Patient discharged Performed By: #### L 100.0100, L500.2500 ####[facility] [address] [place], [address] CL Normal 98-107 [facility] Comment on above: Result Comment: Canc elled via OM: Order cancelled - Patient discharged Performed By: #### L 100.0100, L500.2500 ####[facility] [address] [place], [address] CO2 Normal 21.0-32.0 [facility] Comment on above: Result Comment: Canc elled via OM: Order cancelled - Patient discharged Performed By: #### L 100.0100, L500.2500 ####[facility] [address] [place], [address] CREAT,SERUM Normal 0.55-1.02 [facility] Comment on above: Result Comment: Canc elled via OM: Order cancelled - Patient discharged Performed By: #### L 100.0100, L500.2500 ####[facility] [address] [place], [address] EST GFR Normal >60 [facility] Comment on above: Result Comment: Canc elled via OM: Order cancelled - Patient discharged Performed By: #### L 100.0100, L500.2500 ####[facility] [address] [place], [address] EST GFR - AA Normal >60 [facility] Comment on above: Result Comment: Canc elled via OM: Order cancelled - Patient discharged Performed By: #### L 100.0100, L500.2500 ####[facility] [address] [place], [address] GAP Normal 5-15 [facility] Comment on above: Result Comment: Canc elled via OM: Order cancelled - Patient discharged Performed By: #### L 100.0100, L500.2500 ####[facility] [address] [place], [address] GLU Normal 74-106 [facility] Comment on above: Result Comment: Canc elled via OM: Order cancelled - Patient discharged Performed By: #### L 100.0100, L500.2500 ####[facility] [address] [place], [address] Potassium Normal 3.5-5.1 [facility] Comment on above: Result Comment: Canc elled via OM: Order cancelled - Patient discharged Performed By: #### L 100.0100, L500.2500 ####[facility] [address] [place], [address] Basic Metabolic Profile (BMP) Normal 136-145 [facility] Comment on above: Result Comment: Canc elled via OM: Order cancelled - Patient discharged Performed By: #### L 100.0100, L500.2500 ####[facility] [address] [place], [address] CBC W/Diff, Automatedon 12-0 Absolute Neut Normal 2.0-7.7 [facility] Comment on above: Result Comment: Canc elled via OM: Order cancelled - Patient discharged Performed By: #### L 100.0100, L500.2500 ####[facility] [address] [place], [address] HCT Normal 37-47 [facility] Comment on above: Result Comment: Canc elled via OM: Order cancelled - Patient discharged Performed By: #### L 100.0100, L500.2500 ####[facility] [address] [place], [address] HGB Normal 12.0-15.0 [facility] Comment on above: Result Comment: Canc elled via OM: Order cancelled - Patient discharged Performed By: #### L 100.0100, L500.2500 ####[facility] [address] [place], [address] MCH Normal 27.0-32.0 [facility] Comment on above: Result Comment: Canc elled via OM: Order cancelled - Patient discharged Performed By: #### L 100.0100, L500.2500 ####[facility] [address] [place], [address] MCHC Normal 32-36 [facility] Comment on above: Result Comment: Canc elled via OM: Order cancelled - Patient discharged Performed By: #### L 100.0100, L500.2500 ####[facility] [address] [place], [address] MCV Normal 81-99 [facility] Comment on above: Result Comment: Canc elled via OM: Order cancelled - Patient discharged Performed By: #### L 100.0100, L500.2500 ####[facility] [address] [place], [address] NEUT% Normal 47-70 [facility] Comment on above: Result Comment: Canc elled via OM: Order cancelled - Patient discharged Performed By: #### L 100.0100, L500.2500 ####[facility] [address] [place], [address] PLT Normal 150-450 [facility] Comment on above: Result Comment: Canc elled via OM: Order cancelled - Patient discharged Performed By: #### L 100.0100, L500.2500 ####[facility] [address] [place], [address] RBC Normal 4.2-5.4 [facility] Comment on above: Result Comment: Canc elled via OM: Order cancelled - Patient discharged Performed By: #### L 100.0100, L500.2500 ####[facility] [address] [place], [address] RDW CV Normal 11.6-14.6 [facility] Comment on above: Result Comment: Canc elled via OM: Order cancelled - Patient discharged Performed By: #### L 100.0100, L500.2500 ####[facility] [address] [place], [address] RDW SD Normal 35.1-43.9 [facility] Comment on above: Result Comment: Canc elled via OM: Order cancelled - Patient discharged Performed By: #### L 100.0100, L500.2500 ####[facility] [address] [place], [address] WBC Normal 4.4-11.0 [facility] Comment on above: Result Comment: Canc elled via OM: Order cancelled - Patient discharged Performed By: #### L 100.0100, L500.2500 ####[facility] [address] [place], [address] Basic Metabolic Profile (BMP )on 05-05-2024 BUN Normal 7-18 [facility] Comment on above: Result Comment: Canc elled via OM: Order cancelled - Patient discharged Performed By: #### L 100.0100, L500.2500 ####[facility] [address] [place], [address] BUN/CRE Normal 10-20 [facility] Comment on above: Result Comment: Canc elled via OM: Order cancelled - Patient discharged Performed By: #### L 100.0100, L500.2500 ####[facility] [address] [place], [address] CA,Total Normal 8.5-10.1 [facility] Comment on above: Result Comment: Canc elled via OM: Order cancelled - Patient discharged Performed By: #### L 100.0100, L500.2500 ####[facility] [address] [place], [address] CL Normal 98-107 [facility] Comment on above: Result Comment: Canc elled via OM: Order cancelled - Patient discharged Performed By: #### L 100.0100, L500.2500 ####[facility] [address] [place], [address] CO2 Normal 21.0-32.0 [facility] Comment on above: Result Comment: Canc elled via OM: Order cancelled - Patient discharged Performed By: #### L 100.0100, L500.2500 ####[facility] [address] [place], [address] CREAT,SERUM Normal 0.55-1.02 [facility] Comment on above: Result Comment: Canc elled via OM: Order cancelled - Patient discharged Performed By: #### L 100.0100, L500.2500 ####[facility] [address] [place], [address] EST GFR Normal >60 [facility] Comment on above: Result Comment: Canc elled via OM: Order cancelled - Patient discharged Performed By: #### L 100.0100, L500.2500 ####[facility] [address] [place], [address] EST GFR - AA Normal >60 [facility] Comment on above: Result Comment: Canc elled via OM: Order cancelled - Patient discharged Performed By: #### L 100.0100, L500.2500 ####[facility] [address] [place], [address] GAP Normal 5-15 [facility] Comment on above: Result Comment: Canc elled via OM: Order cancelled - Patient discharged Performed By: #### L 100.0100, L500.2500 ####[facility] [address] [place], [address] GLU Normal 74-106 [facility] Comment on above: Result Comment: Canc elled via OM: Order cancelled - Patient discharged Performed By: #### L 100.0100, L500.2500 ####[facility] [address] [place], [address] Potassium Normal 3.5-5.1 [facility] Comment on above: Result Comment: Canc elled via OM: Order cancelled - Patient discharged Performed By: #### L 100.0100, L500.2500 ####[facility] [address] [place], [address] Basic Metabolic Profile (BMP) Normal 136-145 [facility] Comment on above: Result Comment: Canc elled via OM: Order cancelled - Patient discharged Performed By: #### L 100.0100, L500.2500 ####[facility] [address] [place], [address] CBC W/Diff, Automatedon 12-0 Absolute Neut Normal 2.0-7.7 [facility] Comment on above: Result Comment: Canc elled via OM: Order cancelled - Patient discharged Performed By: #### L 100.0100, L500.2500 ####[facility] [address] [place], [address] HCT Normal 37-47 [facility] Comment on above: Result Comment: Canc elled via OM: Order cancelled - Patient discharged Performed By: #### L 100.0100, L500.2500 ####[facility] [address] [place], [address] HGB Normal 12.0-15.0 [facility] Comment on above: Result Comment: Canc elled via OM: Order cancelled - Patient discharged Performed By: #### L 100.0100, L500.2500 ####[facility] [address] [place], [address] MCH Normal 27.0-32.0 [facility] Comment on above: Result Comment: Canc elled via OM: Order cancelled - Patient discharged Performed By: #### L 100.0100, L500.2500 ####[facility] [address] [place], [address] MCHC Normal 32-36 [facility] Comment on above: Result Comment: Canc elled via OM: Order cancelled - Patient discharged Performed By: #### L 100.0100, L500.2500 ####[facility] [address] [place], [address] MCV Normal 81-99 [facility] Comment on above: Result Comment: Canc elled via OM: Order cancelled - Patient discharged Performed By: #### L 100.0100, L500.2500 ####[facility] [address] [place], [address] NEUT% Normal 47-70 [facility] Comment on above: Result Comment: Canc elled via OM: Order cancelled - Patient discharged Performed By: #### L 100.0100, L500.2500 ####[facility] [address] [place], [address] PLT Normal 150-450 [facility] Comment on above: Result Comment: Canc elled via OM: Order cancelled - Patient discharged Performed By: #### L 100.0100, L500.2500 ####[facility] [address] [place], [address] RBC Normal 4.2-5.4 [facility] Comment on above: Result Comment: Canc elled via OM: Order cancelled - Patient discharged Performed By: #### L 100.0100, L500.2500 ####[facility] [address] [place], [address] RDW CV Normal 11.6-14.6 [facility] Comment on above: Result Comment: Canc elled via OM: Order cancelled - Patient discharged Performed By: #### L 100.0100, L500.2500 ####[facility] [address] [place], [address] RDW SD Normal 35.1-43.9 [facility] Comment on above: Result Comment: Canc elled via OM: Order cancelled - Patient discharged Performed By: #### L 100.0100, L500.2500 ####[facility] [address] [place], [address] WBC Normal 4.4-11.0 [facility] Comment on above: Result Comment: Canc elled via OM: Order cancelled - Patient discharged Performed By: #### L 100.0100, L500.2500 ####[facility] [address] [place], [address] Basic Metabolic Profile (BMP )on 05-04-2024 BUN Normal 7-18 [facility] Comment on above: Result Comment: Canc elled via OM: Order cancelled - Patient discharged Performed By: #### L 100.0100, L500.2500 ####[facility] [address] [place], [address] BUN/CRE Normal 10-20 [facility] Comment on above: Result Comment: Canc elled via OM: Order cancelled - Patient discharged Performed By: #### L 100.0100, L500.2500 ####[facility] [address] [place], [address] CA,Total Normal 8.5-10.1 [facility] Comment on above: Result Comment: Canc elled via OM: Order cancelled - Patient discharged Performed By: #### L 100.0100, L500.2500 ####[facility] [address] [place], [address] CL Normal 98-107 [facility] Comment on above: Result Comment: Canc elled via OM: Order cancelled - Patient discharged Performed By: #### L 100.0100, L500.2500 ####[facility] [address] [place], [address] CO2 Normal 21.0-32.0 [facility] Comment on above: Result Comment: Canc elled via OM: Order cancelled - Patient discharged Performed By: #### L 100.0100, L500.2500 ####[facility] [address] [place], [address] CREAT,SERUM Normal 0.55-1.02 [facility] Comment on above: Result Comment: Canc elled via OM: Order cancelled - Patient discharged Performed By: #### L 100.0100, L500.2500 ####[facility] [address] [place], [address] EST GFR Normal >60 [facility] Comment on above: Result Comment: Canc elled via OM: Order cancelled - Patient discharged Performed By: #### L 100.0100, L500.2500 ####[facility] [address] [place], [address] EST GFR - AA Normal >60 [facility] Comment on above: Result Comment: Canc elled via OM: Order cancelled - Patient discharged Performed By: #### L 100.0100, L500.2500 ####[facility] [address] [place], [address] GAP Normal 5-15 [facility] Comment on above: Result Comment: Canc elled via OM: Order cancelled - Patient discharged Performed By: #### L 100.0100, L500.2500 ####[facility] [address] [place], [address] GLU Normal 74-106 [facility] Comment on above: Result Comment: Canc elled via OM: Order cancelled - Patient discharged Performed By: #### L 100.0100, L500.2500 ####[facility] [address] [place], [address] Potassium Normal 3.5-5.1 [facility] Comment on above: Result Comment: Canc elled via OM: Order cancelled - Patient discharged Performed By: #### L 100.0100, L500.2500 ####[facility] [address] [place], [address] Basic Metabolic Profile (BMP) Normal 136-145 [facility] Comment on above: Result Comment: Canc elled via OM: Order cancelled - Patient discharged Performed By: #### L 100.0100, L500.2500 ####[facility] [address] [place], [address] CBC W/Diff, Automatedon 12-0 Absolute Neut Normal 2.0-7.7 [facility] Comment on above: Result Comment: Canc elled via OM: Order cancelled - Patient discharged Performed By: #### L 100.0100, L500.2500 ####[facility] [address] [place], [address] HCT Normal 37-47 [facility] Comment on above: Result Comment: Canc elled via OM: Order cancelled - Patient discharged Performed By: #### L 100.0100, L500.2500 ####[facility] [address] [place], [address] HGB Normal 12.0-15.0 [facility] Comment on above: Result Comment: Canc elled via OM: Order cancelled - Patient discharged Performed By: #### L 100.0100, L500.2500 ####[facility] [address] [place], [address] MCH Normal 27.0-32.0 [facility] Comment on above: Result Comment: Canc elled via OM: Order cancelled - Patient discharged Performed By: #### L 100.0100, L500.2500 ####[facility] [address] [place], [address] MCHC Normal 32-36 [facility] Comment on above: Result Comment: Canc elled via OM: Order cancelled - Patient discharged Performed By: #### L 100.0100, L500.2500 ####[facility] [address] [place], [address] MCV Normal 81-99 [facility] Comment on above: Result Comment: Canc elled via OM: Order cancelled - Patient discharged Performed By: #### L 100.0100, L500.2500 ####[facility] [address] [place], [address] NEUT% Normal 47-70 [facility] Comment on above: Result Comment: Canc elled via OM: Order cancelled - Patient discharged Performed By: #### L 100.0100, L500.2500 ####[facility] [address] [place], [address] PLT Normal 150-450 [facility] Comment on above: Result Comment: Canc elled via OM: Order cancelled - Patient discharged Performed By: #### L 100.0100, L500.2500 ####[facility] [address] [place], [address] RBC Normal 4.2-5.4 [facility] Comment on above: Result Comment: Canc elled via OM: Order cancelled - Patient discharged Performed By: #### L 100.0100, L500.2500 ####[facility] [address] [place], [address] RDW CV Normal 11.6-14.6 [facility] Comment on above: Result Comment: Canc elled via OM: Order cancelled - Patient discharged Performed By: #### L 100.0100, L500.2500 ####[facility] [address] [place], [address] RDW SD Normal 35.1-43.9 [facility] Comment on above: Result Comment: Canc elled via OM: Order cancelled - Patient discharged Performed By: #### L 100.0100, L500.2500 ####[facility] [address] [place], [address] WBC Normal 4.4-11.0 [facility] Comment on above: Result Comment: Canc elled via OM: Order cancelled - Patient discharged Performed By: #### L 100.0100, L500.2500 ####[facility] [address] [place], [address] Basic Metabolic Profile (BMP )on 05-03-2024 BUN Normal 7-18 [facility] Comment on above: Result Comment: Canc elled via OM: Order cancelled - Patient discharged Performed By: #### L 100.0100, L500.2500 ####[facility] [address] [place], [address] BUN/CRE Normal 10-20 [facility] Comment on above: Result Comment: Canc elled via OM: Order cancelled - Patient discharged Performed By: #### L 100.0100, L500.2500 ####[facility] [address] [place], [address] CA,Total Normal 8.5-10.1 [facility] Comment on above: Result Comment: Canc elled via OM: Order cancelled - Patient discharged Performed By: #### L 100.0100, L500.2500 ####[facility] [address] [place], [address] CL Normal 98-107 [facility] Comment on above: Result Comment: Canc elled via OM: Order cancelled - Patient discharged Performed By: #### L 100.0100, L500.2500 ####[facility] [address] [place], [address] CO2 Normal 21.0-32.0 [facility] Comment on above: Result Comment: Canc elled via OM: Order cancelled - Patient discharged Performed By: #### L 100.0100, L500.2500 ####[facility] [address] [place], [address] CREAT,SERUM Normal 0.55-1.02 [facility] Comment on above: Result Comment: Canc elled via OM: Order cancelled - Patient discharged Performed By: #### L 100.0100, L500.2500 ####[facility] [address] [place], [address] EST GFR Normal >60 [facility] Comment on above: Result Comment: Canc elled via OM: Order cancelled - Patient discharged Performed By: #### L 100.0100, L500.2500 ####[facility] [address] [place], [address] EST GFR - AA Normal >60 [facility] Comment on above: Result Comment: Canc elled via OM: Order cancelled - Patient discharged Performed By: #### L 100.0100, L500.2500 ####[facility] [address] [place], [address] GAP Normal 5-15 [facility] Comment on above: Result Comment: Canc elled via OM: Order cancelled - Patient discharged Performed By: #### L 100.0100, L500.2500 ####[facility] [address] [place], [address] GLU Normal 74-106 [facility] Comment on above: Result Comment: Canc elled via OM: Order cancelled - Patient discharged Performed By: #### L 100.0100, L500.2500 ####[facility] [address] [place], [address] Potassium Normal 3.5-5.1 [facility] Comment on above: Result Comment: Canc elled via OM: Order cancelled - Patient discharged Performed By: #### L 100.0100, L500.2500 ####[facility] [address] [place], [address] Basic Metabolic Profile (BMP) Normal 136-145 [facility] Comment on above: Result Comment: Canc elled via OM: Order cancelled - Patient discharged Performed By: #### L 100.0100, L500.2500 ####[facility] [address] [place], [address] CBC W/Diff, Automatedon 11-3 0-2023 Absolute Neut Normal 2.0-7.7 [facility] Comment on above: Result Comment: Canc elled via OM: Order cancelled - Patient discharged Performed By: #### L 100.0100, L500.2500 ####[facility] [address] [place], [address] HCT Normal 37-47 [facility] Comment on above: Result Comment: Canc elled via OM: Order cancelled - Patient discharged Performed By: #### L 100.0100, L500.2500 ####[facility] [address] [place], [address] HGB Normal 12.0-15.0 [facility] Comment on above: Result Comment: Canc elled via OM: Order cancelled - Patient discharged Performed By: #### L 100.0100, L500.2500 ####[facility] [address] [place], [address] MCH Normal 27.0-32.0 [facility] Comment on above: Result Comment: Canc elled via OM: Order cancelled - Patient discharged Performed By: #### L 100.0100, L500.2500 ####[facility] [address] [place], [address] MCHC Normal 32-36 [facility] Comment on above: Result Comment: Canc elled via OM: Order cancelled - Patient discharged Performed By: #### L 100.0100, L500.2500 ####[facility] [address] [place], [address] MCV Normal 81-99 [facility] Comment on above: Result Comment: Canc elled via OM: Order cancelled - Patient discharged Performed By: #### L 100.0100, L500.2500 ####[facility] [address] [place], [address] NEUT% Normal 47-70 [facility] Comment on above: Result Comment: Canc elled via OM: Order cancelled - Patient discharged Performed By: #### L 100.0100, L500.2500 ####[facility] [address] [place], [address] PLT Normal 150-450 [facility] Comment on above: Result Comment: Canc elled via OM: Order cancelled - Patient discharged Performed By: #### L 100.0100, L500.2500 ####[facility] [address] [place], [address] RBC Normal 4.2-5.4 [facility] Comment on above: Result Comment: Canc elled via OM: Order cancelled - Patient discharged Performed By: #### L 100.0100, L500.2500 ####[facility] [address] [place], [address] RDW CV Normal 11.6-14.6 [facility] Comment on above: Result Comment: Canc elled via OM: Order cancelled - Patient discharged Performed By: #### L 100.0100, L500.2500 ####[facility] [address] [place], [address] RDW SD Normal 35.1-43.9 [facility] Comment on above: Result Comment: Canc elled via OM: Order cancelled - Patient discharged Performed By: #### L 100.0100, L500.2500 ####[facility] [address] [place], [address] WBC Normal 4.4-11.0 [facility] Comment on above: Result Comment: Canc elled via OM: Order cancelled - Patient discharged Performed By: #### L 100.0100, L500.2500 ####[facility] [address] [place], [address] Basic Metabolic Profile (BMP )on 05-02-2024 BUN Normal 7-18 [facility] Comment on above: Result Comment: Canc elled via OM: Order cancelled - Patient discharged Performed By: #### L 500.2500, L100.0100 ####[facility] [address] [place], [address] BUN/CRE Normal 10-20 [facility] Comment on above: Result Comment: Canc elled via OM: Order cancelled - Patient discharged Performed By: #### L 500.2500, L100.0100 ####[facility] [address] [place], [address] CA,Total Normal 8.5-10.1 [facility] Comment on above: Result Comment: Canc elled via OM: Order cancelled - Patient discharged Performed By: #### L 500.2500, L100.0100 ####[facility] [address] [place], [address] CL Normal 98-107 [facility] Comment on above: Result Comment: Canc elled via OM: Order cancelled - Patient discharged Performed By: #### L 500.2500, L100.0100 ####[facility] [address] [place], [address] CO2 Normal 21.0-32.0 [facility] Comment on above: Result Comment: Canc elled via OM: Order cancelled - Patient discharged Performed By: #### L 500.2500, L100.0100 ####[facility] [address] [place], [address] CREAT,SERUM Normal 0.55-1.02 [facility] Comment on above: Result Comment: Canc elled via OM: Order cancelled - Patient discharged Performed By: #### L 500.2500, L100.0100 ####[facility] [address] [place], [address] EST GFR Normal >60 [facility] Comment on above: Result Comment: Canc elled via OM: Order cancelled - Patient discharged Performed By: #### L 500.2500, L100.0100 ####[facility] [address] [place], [address] EST GFR - AA Normal >60 [facility] Comment on above: Result Comment: Canc elled via OM: Order cancelled - Patient discharged Performed By: #### L 500.2500, L100.0100 ####[facility] [address] [place], [address] GAP Normal 5-15 [facility] Comment on above: Result Comment: Canc elled via OM: Order cancelled - Patient discharged Performed By: #### L 500.2500, L100.0100 ####[facility] [address] [place], [address] GLU Normal 74-106 [facility] Comment on above: Result Comment: Canc elled via OM: Order cancelled - Patient discharged Performed By: #### L 500.2500, L100.0100 ####[facility] [address] [place], [address] Potassium Normal 3.5-5.1 [facility] Comment on above: Result Comment: Canc elled via OM: Order cancelled - Patient discharged Performed By: #### L 500.2500, L100.0100 ####[facility] [address] [place], [address] Basic Metabolic Profile (BMP) Normal 136-145 [facility] Comment on above: Result Comment: Canc elled via OM: Order cancelled - Patient discharged Performed By: #### L 500.2500, L100.0100 ####[facility] [address] [place], [address] CBC W/Diff, Automatedon 11-2 Absolute Neut Normal 2.0-7.7 [facility] Comment on above: Result Comment: Canc elled via OM: Order cancelled - Patient discharged Performed By: #### L 500.2500, L100.0100 ####[facility] [address] [place], [address] HCT Normal 37-47 [facility] Comment on above: Result Comment: Canc elled via OM: Order cancelled - Patient discharged Performed By: #### L 500.2500, L100.0100 ####[facility] [address] [place], [address] HGB Normal 12.0-15.0 [facility] Comment on above: Result Comment: Canc elled via OM: Order cancelled - Patient discharged Performed By: #### L 500.2500, L100.0100 ####[facility] [address] [place], [address] MCH Normal 27.0-32.0 [facility] Comment on above: Result Comment: Canc elled via OM: Order cancelled - Patient discharged Performed By: #### L 500.2500, L100.0100 ####[facility] [address] [place], [address] MCHC Normal 32-36 [facility] Comment on above: Result Comment: Canc elled via OM: Order cancelled - Patient discharged Performed By: #### L 500.2500, L100.0100 ####[facility] [address] [place], [address] MCV Normal 81-99 [facility] Comment on above: Result Comment: Canc elled via OM: Order cancelled - Patient discharged Performed By: #### L 500.2500, L100.0100 ####[facility] [address] [place], [address] NEUT% Normal 47-70 [facility] Comment on above: Result Comment: Canc elled via OM: Order cancelled - Patient discharged Performed By: #### L 500.2500, L100.0100 ####[facility] [address] [place], [address] PLT Normal 150-450 [facility] Comment on above: Result Comment: Canc elled via OM: Order cancelled - Patient discharged Performed By: #### L 500.2500, L100.0100 ####[facility] [address] [place], [address] RBC Normal 4.2-5.4 [facility] Comment on above: Result Comment: Canc elled via OM: Order cancelled - Patient discharged Performed By: #### L 500.2500, L100.0100 ####[facility] [address] [place], [address] RDW CV Normal 11.6-14.6 [facility] Comment on above: Result Comment: Canc elled via OM: Order cancelled - Patient discharged Performed By: #### L 500.2500, L100.0100 ####[facility] [address] [place], [address] RDW SD Normal 35.1-43.9 [facility] Comment on above: Result Comment: Canc elled via OM: Order cancelled - Patient discharged Performed By: #### L 500.2500, L100.0100 ####[facility] [address] [place], [address] WBC Normal 4.4-11.0 [facility] Comment on above: Result Comment: Canc elled via OM: Order cancelled - Patient discharged Performed By: #### L 500.2500, L100.0100 ####[facility] [address] [place], [address] Basic Metabolic Profile (BMP )on 05-01-2024 BUN Normal 7-18 [facility] Comment on above: Result Comment: Canc elled via OM: Order cancelled - Patient discharged Performed By: #### L 100.0100, L500.2500 ####[facility] [address] [place], [address] BUN/CRE Normal 10-20 [facility] Comment on above: Result Comment: Canc elled via OM: Order cancelled - Patient discharged Performed By: #### L 100.0100, L500.2500 ####[facility] [address] [place], [address] CA,Total Normal 8.5-10.1 [facility] Comment on above: Result Comment: Canc elled via OM: Order cancelled - Patient discharged Performed By: #### L 100.0100, L500.2500 ####[facility] [address] [place], [address] CL Normal 98-107 [facility] Comment on above: Result Comment: Canc elled via OM: Order cancelled - Patient discharged Performed By: #### L 100.0100, L500.2500 ####[facility] [address] [place], [address] CO2 Normal 21.0-32.0 [facility] Comment on above: Result Comment: Canc elled via OM: Order cancelled - Patient discharged Performed By: #### L 100.0100, L500.2500 ####[facility] [address] [place], [address] CREAT,SERUM Normal 0.55-1.02 [facility] Comment on above: Result Comment: Canc elled via OM: Order cancelled - Patient discharged Performed By: #### L 100.0100, L500.2500 ####[facility] [address] [place], [address] EST GFR Normal >60 [facility] Comment on above: Result Comment: Canc elled via OM: Order cancelled - Patient discharged Performed By: #### L 100.0100, L500.2500 ####[facility] [address] [place], [address] EST GFR - AA Normal >60 [facility] Comment on above: Result Comment: Canc elled via OM: Order cancelled - Patient discharged Performed By: #### L 100.0100, L500.2500 ####[facility] [address] [place], [address] GAP Normal 5-15 [facility] Comment on above: Result Comment: Canc elled via OM: Order cancelled - Patient discharged Performed By: #### L 100.0100, L500.2500 ####[facility] [address] [place], [address] GLU Normal 74-106 [facility] Comment on above: Result Comment: Canc elled via OM: Order cancelled - Patient discharged Performed By: #### L 100.0100, L500.2500 ####[facility] [address] [place], [address] Potassium Normal 3.5-5.1 [facility] Comment on above: Result Comment: Canc elled via OM: Order cancelled - Patient discharged Performed By: #### L 100.0100, L500.2500 ####[facility] [address] [place], [address] Basic Metabolic Profile (BMP) Normal 136-145 [facility] Comment on above: Result Comment: Canc elled via OM: Order cancelled - Patient discharged Performed By: #### L 100.0100, L500.2500 ####[facility] [address] [place], [address] CBC W/Diff, Automatedon 11-2 Absolute Neut Normal 2.0-7.7 [facility] Comment on above: Result Comment: Canc elled via OM: Order cancelled - Patient discharged Performed By: #### L 100.0100, L500.2500 ####[facility] [address] [place], [address] HCT Normal 37-47 [facility] Comment on above: Result Comment: Canc elled via OM: Order cancelled - Patient discharged Performed By: #### L 100.0100, L500.2500 ####[facility] [address] [place], [address] HGB Normal 12.0-15.0 [facility] Comment on above: Result Comment: Canc elled via OM: Order cancelled - Patient discharged Performed By: #### L 100.0100, L500.2500 ####[facility] [address] [place], [address] MCH Normal 27.0-32.0 [facility] Comment on above: Result Comment: Canc elled via OM: Order cancelled - Patient discharged Performed By: #### L 100.0100, L500.2500 ####[facility] [address] [place], [address] MCHC Normal 32-36 [facility] Comment on above: Result Comment: Canc elled via OM: Order cancelled - Patient discharged Performed By: #### L 100.0100, L500.2500 ####[facility] [address] [place], [address] MCV Normal 81-99 [facility] Comment on above: Result Comment: Canc elled via OM: Order cancelled - Patient discharged Performed By: #### L 100.0100, L500.2500 ####[facility] [address] [place], [address] NEUT% Normal 47-70 [facility] Comment on above: Result Comment: Canc elled via OM: Order cancelled - Patient discharged Performed By: #### L 100.0100, L500.2500 ####[facility] [address] [place], [address] PLT Normal 150-450 [facility] Comment on above: Result Comment: Canc elled via OM: Order cancelled - Patient discharged Performed By: #### L 100.0100, L500.2500 ####[facility] [address] [place], [address] RBC Normal 4.2-5.4 [facility] Comment on above: Result Comment: Canc elled via OM: Order cancelled - Patient discharged Performed By: #### L 100.0100, L500.2500 ####[facility] [address] [place], [address] RDW CV Normal 11.6-14.6 [facility] Comment on above: Result Comment: Canc elled via OM: Order cancelled - Patient discharged Performed By: #### L 100.0100, L500.2500 ####[facility] [address] [place], [address] RDW SD Normal 35.1-43.9 [facility] Comment on above: Result Comment: Canc elled via OM: Order cancelled - Patient discharged Performed By: #### L 100.0100, L500.2500 ####[facility] [address] [place], [address] WBC Normal 4.4-11.0 [facility] Comment on above: Result Comment: Canc elled via OM: Order cancelled - Patient discharged Performed By: #### L 100.0100, L500.2500 ####[facility] [address] [place], [address] Basic Metabolic Profile (BMP )on 04-30-2024 BUN Normal -18 [facility] Comment on above: Result Comment: Canc elled via OM: Order cancelled - Patient discharged Performed By: #### L 500.2500, L100.0100 ####[facility] [address] [place], [address] BUN/CRE Normal 10-20 [facility] Comment on above: Result Comment: Canc elled via OM: Order cancelled - Patient discharged Performed By: #### L 500.2500, L100.0100 ####[facility] [address] [place], [address] CA,Total Normal 8.5-10.1 [facility] Comment on above: Result Comment: Canc elled via OM: Order cancelled - Patient discharged Performed By: #### L 500.2500, L100.0100 ####[facility] [address] [place], [address] CL Normal 98-107 [facility] Comment on above: Result Comment: Canc elled via OM: Order cancelled - Patient discharged Performed By: #### L 500.2500, L100.0100 ####[facility] [address] [place], [address] CO2 Normal 21.0-32.0 [facility] Comment on above: Result Comment: Canc elled via OM: Order cancelled - Patient discharged Performed By: #### L 500.2500, L100.0100 ####[facility] [address] [place], [address] CREAT,SERUM Normal 0.55-1.02 [facility] Comment on above: Result Comment: Canc elled via OM: Order cancelled - Patient discharged Performed By: #### L 500.2500, L100.0100 ####[facility] [address] [place], [address] EST GFR Normal >60 [facility] Comment on above: Result Comment: Canc elled via OM: Order cancelled - Patient discharged Performed By: #### L 500.2500, L100.0100 ####[facility] [address] [place], [address] EST GFR - AA Normal >60 [facility] Comment on above: Result Comment: Canc elled via OM: Order cancelled - Patient discharged Performed By: #### L 500.2500, L100.0100 ####[facility] [address] [place], [address] GAP Normal 5-15 [facility] Comment on above: Result Comment: Canc elled via OM: Order cancelled - Patient discharged Performed By: #### L 500.2500, L100.0100 ####[facility] [address] [place], [address] GLU Normal 74-106 [facility] Comment on above: Result Comment: Canc elled via OM: Order cancelled - Patient discharged Performed By: #### L 500.2500, L100.0100 ####[facility] [address] [place], [address] Potassium Normal 3.5-5.1 [facility] Comment on above: Result Comment: Canc elled via OM: Order cancelled - Patient discharged Performed By: #### L 500.2500, L100.0100 ####[facility] [address] [place], [address] Basic Metabolic Profile (BMP) Normal 136-145 [facility] Comment on above: Result Comment: Canc elled via OM: Order cancelled - Patient discharged Performed By: #### L 500.2500, L100.0100 ####[facility] [address] [place], [address] CBC W/Diff, Automatedon 11-2 Absolute Neut Normal 2.0-7.7 [facility] Comment on above: Result Comment: Canc elled via OM: Order cancelled - Patient discharged Performed By: #### L 500.2500, L100.0100 ####[facility] [address] [place], [address] HCT Normal 37-47 [facility] Comment on above: Result Comment: Canc elled via OM: Order cancelled - Patient discharged Performed By: #### L 500.2500, L100.0100 ####[facility] [address] [place], [address] HGB Normal 12.0-15.0 [facility] Comment on above: Result Comment: Canc elled via OM: Order cancelled - Patient discharged Performed By: #### L 500.2500, L100.0100 ####[facility] [address] [place], [address] MCH Normal 27.0-32.0 [facility] Comment on above: Result Comment: Canc elled via OM: Order cancelled - Patient discharged Performed By: #### L 500.2500, L100.0100 ####[facility] [address] [place], [address] MCHC Normal 32-36 [facility] Comment on above: Result Comment: Canc elled via OM: Order cancelled - Patient discharged Performed By: #### L 500.2500, L100.0100 ####[facility] [address] [place], [address] MCV Normal 81-99 [facility] Comment on above: Result Comment: Canc elled via OM: Order cancelled - Patient discharged Performed By: #### L 500.2500, L100.0100 ####[facility] [address] [place], [address] NEUT% Normal 47-70 [facility] Comment on above: Result Comment: Canc elled via OM: Order cancelled - Patient discharged Performed By: #### L 500.2500, L100.0100 ####[facility] [address] [place], [address] PLT Normal 150-450 [facility] Comment on above: Result Comment: Canc elled via OM: Order cancelled - Patient discharged Performed By: #### L 500.2500, L100.0100 ####[facility] [address] [place], [address] RBC Normal 4.2-5.4 [facility] Comment on above: Result Comment: Canc elled via OM: Order cancelled - Patient discharged Performed By: #### L 500.2500, L100.0100 ####[facility] [address] [place], [address] RDW CV Normal 11.6-14.6 [facility] Comment on above: Result Comment: Canc elled via OM: Order cancelled - Patient discharged Performed By: #### L 500.2500, L100.0100 ####[facility] [address] [place], [address] RDW SD Normal 35.1-43.9 [facility] Comment on above: Result Comment: Canc elled via OM: Order cancelled - Patient discharged Performed By: #### L 500.2500, L100.0100 ####[facility] [address] [place], [address] WBC Normal 4.4-11.0 [facility] Comment on above: Result Comment: Canc elled via OM: Order cancelled - Patient discharged Performed By: #### L 500.2500, L100.0100 ####[facility] [address] [place], [address] Absolute neutrophil countOrd ered By: Talisha Boykin on 04-29-2024 Absolute neutrophil count 7.8 X10^3/uL High 2.0-7.7 [facility] Basic Metabolic Profile (BMP )on 04-29-2024 BUN/CRE 31.5 RATIO High 10-20 [facility] Comment on above: Performed By: #### L 100.0100, L500.2500 ####[facility] [address] [place], [address] CA,Total 8.1 mg/dL Low 8.5-10.1 [facility] Comment on above: Performed By: #### L 100.0100, L500.2500 ####[facility] [address] [place], [address] Chloride [Moles/Vol] 104 mmol/L Normal 98-107 [facility] Comment on above: Performed By: #### L 100.0100, L500.2500 ####[facility] [address] [place], [address] CO2 [Moles/Vol] 27.0 mmol/L Normal 21.0-32.0 [facility] Comment on above: Performed By: #### L 100.0100, L500.2500 ####[facility] [address] [place], [address] Creatinine [Mass/Vol] 0.70 mg/dL Normal 0.55-1.02 [facility] Comment on above: Result Comment: The validity of the calculated GFR GFRAA in patients over70 years has not been determined. Clinical correlation isessential. Performed By: #### L 100.0100, L500.2500 ####[facility] [address] [place], [address] ECRCL 91.42 ml/min Normal [facility] Comment on above: Performed By: #### L 100.0100, L500.2500 ####[facility] [address] [place], [address] EST GFR - AA 113 mL/min Normal >60 [facility] Comment on above: Result Comment: Afri can [place] GFR Calc Performed By: #### L 100.0100, L500.2500 ####[facility] [address] [place], [address] GAP 4 Low 5-15 [facility] Comment on above: Performed By: #### L 100.0100, L500.2500 ####[facility] [address] [place], [address] GFR/1.73 sq M.predicted among non-blacks MDRD (S/P/Bld) [Vol rate/Area] 94 mL/min/{1.73_m2} Normal >60 [facility] Comment on above: Result Comment: Non- GFR Calc Performed By: #### L 100.0100, L500.2500 ####[facility] [address] [place], [address] Glucose [Mass/Vol] 231 mg/dL High 74-106 [facility] Comment on above: Result Comment: Gluc ose result greater than or equal to 200 mg/dLsuggests DIABETES MELLITUS per A.D.A. criteria. Performed By: #### L 100.0100, L500.2500 ####[facility] [address] [place], [address] Potassium [Moles/Vol] 4.7 mmol/L Normal 3.5-5.1 [facility] Comment on above: Performed By: #### L 100.0100, L500.2500 ####[facility] [address] [place], [address] Sodium [Moles/Vol] 134 mmol/L Low 136-145 [facility] Comment on above: Performed By: #### L 100.0100, L500.2500 ####[facility] [address] [place], [address] Urea nitrogen [Mass/Vol] 22 mg/dL High 7-18 [facility] Comment on above: Performed By: #### L 100.0100, L500.2500 ####[facility] [address] [place], [address] Basophil percentageOrdered B y: Talishaneville Boykin on 04-29-2024 Basophil percentage 0.5 % 0-1 [facility] Bedside Glucoseon 04-29-2024 FINGERSTICK GLU 277 mg/dL High 74-106 [facility] Comment on above: Result Comment: TALIA CHAMBERS OF PATIENT CARE PER NURSING PROTOCOL Performed By: #### L 501.080 ####[facility] [address] [place], [address] Blood urea nitrogen (BUN)/cr eatinine ratioOrdered By: Talisha Ashutosh on 04-29-2024 Blood urea nitrogen (BUN)/creatinine ratio 31.5 RATIO High 10-20 [facility] CBC W/Diff, Automatedon 04-05 Absolute Lymph 1.93 X10 3/uL Normal 0.83-4.51 [facility] Comment on above: Performed By: #### L 100.0100, L500.2500 ####[facility] [address] [place], [address] Absolute Neut 7.8 X10 3/uL High 2.0-7.7 [facility] Comment on above: Performed By: #### L 100.0100, L500.2500 ####[facility] [address] [place], [address] Basophils/100 WBC (Bld) 0.5 % Normal 0-1 [facility] Comment on above: Performed By: #### L 100.0100, L500.2500 ####[facility] [address] [place], [address] Eosinophils/100 WBC (Bld) 0.8 % Normal 0-5 [facility] Comment on above: Performed By: #### L 100.0100, L500.2500 ####[facility] [address] [place], [address] Erythrocyte distribution width (RBC) [Ratio] 13.6 % Normal 11.6-14.6 [facility] Comment on above: Performed By: #### L 100.0100, L500.2500 ####[facility] [address] [place], [address] Hematocrit (Bld) [Volume fraction] 34.3 % Low 37-47 [facility] Comment on above: Performed By: #### L 100.0100, L500.2500 ####[facility] [address] [place], [address] Hemoglobin (Bld) [Mass/Vol] 11.2 g/dL Low 12.0-15.0 [facility] Comment on above: Performed By: #### L 100.0100, L500.2500 ####[facility] [address] [place], [address] IG% 1.100 High 0.0-0.9 [facility] Comment on above: Result Comment: IG% - Immature Granulocytes (promyelocytes, myelocytes andmetamyelocytes) > 1% indicates that a LEFT SHIFT is Present. Performed By: #### L 100.0100, L500.2500 ####[facility] [address] [place], [address] Lymphocytes/100 WBC (Bld) 18.4 % Low 19-41 [facility] Comment on above: Performed By: #### L 100.0100, L500.2500 ####[facility] [address] [place], [address] MCH (RBC) [Entitic mass] 27.2 pg Normal 27.0-32.0 [facility] Comment on above: Performed By: #### L 100.0100, L500.2500 ####[facility] [address] [place], [address] MCHC (RBC) [Mass/Vol] 32.7 g/dL Normal 32-36 [facility] Comment on above: Performed By: #### L 100.0100, L500.2500 ####[facility] [address] [place], [address] MCV (RBC) [Entitic vol] 83.3 fL Normal 81-99 [facility] Comment on above: Performed By: #### L 100.0100, L500.2500 ####[facility] [address] [place], [address] Monocytes/100 WBC (Bld) 4.8 % Normal 0-10 [facility] Comment on above: Performed By: #### L 100.0100, L500.2500 ####[facility] [address] [place], [address] Neutrophils/100 WBC (Bld) 74.4 % High 47-70 [facility] Comment on above: Performed By: #### L 100.0100, L500.2500 ####[facility] [address] [place], [address] Nucleated RBC (Bld) [#/Vol] 0 10*3/uL Normal 0-5 [facility] Comment on above: Performed By: #### L 100.0100, L500.2500 ####[facility] [address] [place], [address] Platelet mean volume (Bld) [Entitic vol] 9.6 fL Normal 6.2-12.0 [facility] Comment on above: Performed By: #### L 100.0100, L500.2500 ####[facility] [address] [place], [address] Platelets (Bld) [#/Vol] 312 10*3/uL Normal 150-450 [facility] Comment on above: Performed By: #### L 100.0100, L500.2500 ####[facility] [address] [place], [address] RBC (Bld) [#/Vol] 4.12 10*6/uL Low 4.2-5.4 [facility] Comment on above: Performed By: #### L 100.0100, L500.2500 ####[facility] [address] [place], [address] RDW SD 41.0 fl Normal 35.1-43.9 [facility] Comment on above: Performed By: #### L 100.0100, L500.2500 ####[facility] [address] [place], [address] WBC (Bld) [#/Vol] 10.5 10*3/uL Normal 4.4-11.0 [facility] Comment on above: Performed By: #### L 100.0100, L500.2500 ####[facility] [address] [place], [address] Calcium [Mass/Vol]Ordered By : Talisha Boykin on 04-29-2024 Serum or plasma calcium measurement (mass/volume) 8.1 mg/dL Low 8.5-10.1 [facility] Carbon dioxide measurementOr dered By: Talisha Boykin on 04-29-2024 Carbon dioxide measurement 27.0 mmol/L 21.0-32.0 [facility] Chloride measurementOrdered By: Talisha Boykin on 04-29-2024 Chloride measurement 104 mmol/L 98-107 [facility] Creatinine [Mass/Vol]Ordered By: Talisha Boykin on 04-29-2024 Serum or plasma creatinine measurement (mass/volume) 0.70 mg/dL 0.55-1.02 [facility] Eosinophil percentageOrdered By: Talisha Boykin on 04-29-2024 Eosinophil percentage 0.8 % 0-5 [facility] Erythrocyte distribution wid th (RBC) [Entitic vol]Ordered By: Talisha Boykin on 04-29-2024 Erythrocyte distribution width standard deviation 41.0 fl 35.1-43.9 [facility] Erythrocyte distribution wid th (RBC) [Ratio]Ordered By: Talisha Boykin on 04-29-2024 Erythrocyte distribution width ratio 13.6 % 11.6-14.6 [facility] Estimated glomerular filtrat ion rate (GFR) AmericanOrdered By: Talisha Boykin on 04-29-2024 Estimated glomerular filtration rate (GFR) 113 mL/min >60 [facility] Estimation of creatinine sylvain aranceOrdered By: Talisha Boykin on 04-29-2024 Estimation of creatinine clearance 91.42 ml/min [facility] Glomerular filtration rate ( GFR) estimationOrdered By: Talisha Boykin on 04-29-2024 Glomerular filtration rate (GFR) estimation 94 mL/min >60 [facility] Glucose measurementOrdered B y: Talisha Boykin on 04-29-2024 Glucose measurement 231 mg/dL High 74-106 [facility] Glucose measurement at bedsi deOrdered By: Talisha Boykin on 04-29-2024 Glucose measurement at bedside 277 mg/dL High 74-106 [facility] Hematocrit Auto (Bld) [Volum e fraction]Ordered By: Talisha Boykin on 04-29-2024 Automated blood hematocrit (percentage) 34.3 % Low 37-47 [facility] Hemoglobin measurementOrdere d By: Talisha Boykin on 04-29-2024 Hemoglobin measurement 11.2 g/dL Low 12.0-15.0 [facility] Immature granulocytes/100 WB C Auto (Bld)Ordered By: Talisha Boykin on 04-29-2024 Automated immature granulocyte percentage 1.100 % High 0.0-0.9 [facility] Lymphocytes Auto (Unsp spec) [#/Vol]Ordered By: Talisha Boykin on 04-29-2024 Absolute lymphocyte count 1.93 X10^3/uL 0.83-4.51 [facility] Lymphocytes/100 WBC Auto (Un sp spec)Ordered By: Talisha Boykin on 04-29-2024 Automated lymphocyte count as percentage of total leukocytes 18.4 % Low 19-41 [facility] MCV (RBC) [Entitic vol]Order ed By: Talisha Boykin on 04-29-2024 MCV (mean corpuscular volume) determination 83.3 fL 81-99 [facility] Mean corpuscular hemoglobin (MCH) determinationOrdered By: Talisha Boykin on 04-29-2024 Mean corpuscular hemoglobin (MCH) determination 27.2 pg 27.0-32.0 [facility] Mean corpuscular hemoglobin concentration (MCHC) determinationOrdered By: Talisha Boykin on 04-29-2024 Mean corpuscular hemoglobin concentration (MCHC) determination 32.7 g/dL 32-36 [facility] Mean platelet volume determi nationOrdered By: Talisha Boykin on 04-29-2024 Mean platelet volume determination 9.6 fl 6.2-12.0 [facility] Monocyte percentageOrdered B y: Talisha Boykin on 04-29-2024 Monocyte percentage 4.8 % 0-10 [facility] Neutrophil percentageOrdered By: Talisha Boykin on 04-29-2024 Neutrophil percentage 74.4 % High 47-70 [facility] Nucleated red blood cell per centageOrdered By: Talisha Boykin on 04-29-2024 Nucleated red blood cell percentage 0 % 0-5 [facility] Platelet countOrdered By: Na helen Boykin on 04-29-2024 Platelet count 312 K/mm3 150-450 [facility] Potassium measurementOrdered By: Talisha Boykin on 04-29-2024 Potassium measurement 4.7 mmol/L 3.5-5.1 [facility] RBC Auto (Bld) [#/Vol]Ordere d By: Talisha Boykin on 04-29-2024 Automated blood erythrocyte count 4.12 M/mm3 Low 4.2-5.4 [facility] Serum anion gap measurementO rdered By: Talisha Boykin on 04-29-2024 Serum anion gap measurement 4 Low 5-15 [facility] Sodium levelOrdered By: Talisha Boykin on 04-29-2024 Sodium level 134 mmol/L Low 136-145 [facility] Urea nitrogen [Mass/Vol]Orde red By: Talisha Boykin on 04-29-2024 Serum or plasma urea nitrogen measurement (mass/volume) 22 mg/dL High 7-18 [facility] White blood cell (WBC) count Ordered By: Talisha Boykin on 04-29-2024 White blood cell (WBC) count 10.5 K/mm3 4.4-11.0 [facility] Basic Metabolic Profile (BMP )on 04-28-2024 BUN/CRE 28.0 RATIO High 10-20 [facility] Comment on above: Performed By: #### L 100.0100, L500.2500 ####[facility] [address] [place], [address] CA,Total 8.2 mg/dL Low 8.5-10.1 [facility] Comment on above: Performed By: #### L 100.0100, L500.2500 ####[facility] [address] [place], [address] Chloride [Moles/Vol] 102 mmol/L Normal 98-107 [facility] Comment on above: Performed By: #### L 100.0100, L500.2500 ####[facility] [address] [place], [address] CO2 [Moles/Vol] 27.0 mmol/L Normal 21.0-32.0 [facility] Comment on above: Performed By: #### L 100.0100, L500.2500 ####[facility] [address] [place], [address] Creatinine [Mass/Vol] 0.54 mg/dL Low 0.55-1.02 [facility] Comment on above: Result Comment: The validity of the calculated GFR GFRAA in patients over70 years has not been determined. Clinical correlation isessential. Performed By: #### L 100.0100, L500.2500 ####[facility] [address] [place], [address] ECRCL 118.51 ml/min Normal [facility] Comment on above: Performed By: #### L 100.0100, L500.2500 ####[facility] [address] [place], [address] EST GFR - AA 153 mL/min Normal >60 [facility] Comment on above: Result Comment: Afri can [place]an GFR Calc Performed By: #### L 100.0100, L500.2500 ####[facility] [address] [place], [address] GAP 4 Low 5-15 [facility] Comment on above: Performed By: #### L 100.0100, L500.2500 ####[facility] [address] [place], [address] GFR/1.73 sq M.predicted among non-blacks MDRD (S/P/Bld) [Vol rate/Area] 127 mL/min/{1.73_m2} Normal >60 [facility] Comment on above: Result Comment: Non- GFR Calc Performed By: #### L 100.0100, L500.2500 ####[facility] [address] [place], [address] Glucose [Mass/Vol] 134 mg/dL High 74-106 [facility] Comment on above: Result Comment: Fast ing Glucose result greater than or equal to 126 mg/dLsuggests DIABETES MELLITUS per A.D.A. criteria. Performed By: #### L 100.0100, L500.2500 ####[facility] [address] [place], [address] Potassium [Moles/Vol] 4.4 mmol/L Normal 3.5-5.1 [facility] Comment on above: Performed By: #### L 100.0100, L500.2500 ####[facility] [address] [place], [address] Sodium [Moles/Vol] 133 mmol/L Low 136-145 [facility] Comment on above: Performed By: #### L 100.0100, L500.2500 ####[facility] [address] [place], [address] Urea nitrogen [Mass/Vol] 15 mg/dL Normal 7-18 [facility] Comment on above: Performed By: #### L 100.0100, L500.2500 ####[facility] [address] [place], [address] Bedside Glucoseon 04-28-2024 FINGERSTICK GLU 171 mg/dL High [facility] Comment on above: Result Comment: TALIA GEMENT OF PATIENT CARE PER NURSING PROTOCOL Performed By: #### L 501.080 ####[facility] [address] [place], [address] FINGERSTICK GLU 158 mg/dL High -106 [facility] Comment on above: Result Comment: TALIA GEMENT OF PATIENT CARE PER NURSING PROTOCOL Performed By: #### L 501.080 ####[facility] [address] [place], [address] FINGERSTICK GLU 147 mg/dL High 74-106 [facility] Comment on above: Result Comment: TALIA GEMENT OF PATIENT CARE PER NURSING PROTOCOL Performed By: #### L 501.080 ####[facility] [address] [place], [address] FINGERSTICK GLU 148 mg/dL High -106 [facility] Comment on above: Result Comment: TALIA GEMENT OF PATIENT CARE PER NURSING PROTOCOL Performed By: #### L 501.080 ####[facility] [address] [place], [address] CBC W/Diff, Automatedon 11-2 5-2023 Absolute Lymph 1.78 X10 3/uL Normal 0.83-4.51 [facility] Comment on above: Performed By: #### L 100.0100, L500.2500 ####[facility] [address] [place], [address] Absolute Neut 5.6 X10 3/uL Normal 2.0-7.7 [facility] Comment on above: Performed By: #### L 100.0100, L500.2500 ####[facility] [address] [place], [address] Basophils/100 WBC (Bld) 0.6 % Normal 0-1 [facility] Comment on above: Performed By: #### L 100.0100, L500.2500 ####[facility] [address] [place], [address] Eosinophils/100 WBC (Bld) 1.4 % Normal 0-5 [facility] Comment on above: Performed By: #### L 100.0100, L500.2500 ####[facility] [address] [place], [address] Erythrocyte distribution width (RBC) [Ratio] 13.3 % Normal 11.6-14.6 [facility] Comment on above: Performed By: #### L 100.0100, L500.2500 ####[facility] [address] [place], [address] Hematocrit (Bld) [Volume fraction] 38.7 % Normal 37-47 [facility] Comment on above: Performed By: #### L 100.0100, L500.2500 ####[facility] [address] [place], [address] Hemoglobin (Bld) [Mass/Vol] 12.4 g/dL Normal 12.0-15.0 [facility] Comment on above: Performed By: #### L 100.0100, L500.2500 ####[facility] [address] [place], [address] IG% 1.500 High 0.0-0.9 [facility] Comment on above: Result Comment: IG% - Immature Granulocytes (promyelocytes, myelocytes andmetamyelocytes) > 1% indicates that a LEFT SHIFT is Present. Performed By: #### L 100.0100, L500.2500 ####[facility] [address] [place], [address] Lymphocytes/100 WBC (Bld) 22.1 % Normal 19-41 [facility] Comment on above: Performed By: #### L 100.0100, L500.2500 ####[facility] [address] [place], [address] MCH (RBC) [Entitic mass] 26.5 pg Low 27.0-32.0 [facility] Comment on above: Performed By: #### L 100.0100, L500.2500 ####[facility] [address] [place], [address] MCHC (RBC) [Mass/Vol] 32.0 g/dL Normal 32-36 [facility] Comment on above: Performed By: #### L 100.0100, L500.2500 ####[facility] [address] [place], [address] MCV (RBC) [Entitic vol] 82.7 fL Normal 81-99 [facility] Comment on above: Performed By: #### L 100.0100, L500.2500 ####[facility] [address] [place], [address] Monocytes/100 WBC (Bld) 5.3 % Normal 0-10 [facility] Comment on above: Performed By: #### L 100.0100, L500.2500 ####[facility] [address] [place], [address] Neutrophils/100 WBC (Bld) 69.1 % Normal 47-70 [facility] Comment on above: Performed By: #### L 100.0100, L500.2500 ####[facility] [address] [place], [address] Nucleated RBC (Bld) [#/Vol] 0 10*3/uL Normal 0-5 [facility] Comment on above: Performed By: #### L 100.0100, L500.2500 ####[facility] [address] [place], [address] Platelet mean volume (Bld) [Entitic vol] 9.6 fL Normal 6.2-12.0 [facility] Comment on above: Performed By: #### L 100.0100, L500.2500 ####[facility] [address] [place], [address] Platelets (Bld) [#/Vol] 273 10*3/uL Normal 150-450 [facility] Comment on above: Performed By: #### L 100.0100, L500.2500 ####[facility] [address] [place], [address] RBC (Bld) [#/Vol] 4.68 10*6/uL Normal 4.2-5.4 [facility] Comment on above: Performed By: #### L 100.0100, L500.2500 ####[facility] [address] [place], [address] RDW SD 40.3 fl Normal 35.1-43.9 [facility] Comment on above: Performed By: #### L 100.0100, L500.2500 ####[facility] [address] [place], [address] WBC (Bld) [#/Vol] 8.1 10*3/uL Normal 4.4-11.0 [facility] Comment on above: Performed By: #### L 100.0100, L500.2500 ####[facility] [address] [place], [address] Basic Metabolic Profile (BMP )on 04-27-2024 BUN/CRE 25.8 RATIO High 10-20 [facility] Comment on above: Performed By: #### L 500.2500, L100.0100 ####[facility] [address] [place], [address] CA,Total 8.2 mg/dL Low 8.5-10.1 [facility] Comment on above: Performed By: #### L 500.2500, L100.0100 ####[facility] [address] [place], [address] Chloride [Moles/Vol] 98 mmol/L Normal 98-107 [facility] Comment on above: Performed By: #### L 500.2500, L100.0100 ####[facility] [address] [place], [address] CO2 [Moles/Vol] 31.0 mmol/L Normal 21.0-32.0 [facility] Comment on above: Performed By: #### L 500.2500, L100.0100 ####[facility] [address] [place], [address] Creatinine [Mass/Vol] 0.66 mg/dL Normal 0.55-1.02 [facility] Comment on above: Result Comment: The validity of the calculated GFR GFRAA in patients over70 years has not been determined. Clinical correlation isessential. Performed By: #### L 500.2500, L100.0100 ####[facility] [address] [place], [address] ECRCL 96.96 ml/min Normal [facility] Comment on above: Performed By: #### L 500.2500, L100.0100 ####[facility] [address] [place], [address] EST GFR - AA 121 mL/min Normal >60 [facility] Comment on above: Result Comment: Afri can [place] GFR Calc Performed By: #### L 500.2500, L100.0100 ####[facility] [address] [place], [address] GAP 5 Normal 5-15 [facility] Comment on above: Performed By: #### L 500.2500, L100.0100 ####[facility] [address] [place], [address] GFR/1.73 sq M.predicted among non-blacks MDRD (S/P/Bld) [Vol rate/Area] 100 mL/min/{1.73_m2} Normal >60 [facility] Comment on above: Result Comment: Non- GFR Calc Performed By: #### L 500.2500, L100.0100 ####[facility] [address] [place], [address] Glucose [Mass/Vol] 265 mg/dL High 74-106 [facility] Comment on above: Result Comment: Gluc ose result greater than or equal to 200 mg/dLsuggests DIABETES MELLITUS per A.D.A. criteria. Performed By: #### L 500.2500, L100.0100 ####[facility] [address] [place], [address] Potassium [Moles/Vol] 4.1 mmol/L Normal 3.5-5.1 [facility] Comment on above: Performed By: #### L 500.2500, L100.0100 ####[facility] [address] [place], [address] Sodium [Moles/Vol] 134 mmol/L Low 136-145 [facility] Comment on above: Performed By: #### L 500.2500, L100.0100 ####[facility] [address] [place], [address] Urea nitrogen [Mass/Vol] 17 mg/dL Normal 7-18 [facility] Comment on above: Performed By: #### L 500.2500, L100.0100 ####[facility] [address] [place], [address] Bedside Glucoseon 04-27-2024 FINGERSTICK GLU 188 mg/dL High 74-106 [facility] Comment on above: Result Comment: TALIA GEMENT OF PATIENT CARE PER NURSING PROTOCOL Performed By: #### L 501.080 ####[facility] [address] [place], [address] FINGERSTICK GLU 278 mg/dL High [facility] Comment on above: Result Comment: TALIA GEMENT OF PATIENT CARE PER NURSING PROTOCOL Performed By: #### L 501.080 ####[facility] [address] [place], [address] FINGERSTICK GLU 321 mg/dL High -106 [facility] Comment on above: Result Comment: TALIA GEMENT OF PATIENT CARE PER NURSING PROTOCOL Performed By: #### L 501.080 ####[facility] [address] [place], [address] FINGERSTICK GLU 185 mg/dL High -106 [facility] Comment on above: Result Comment: TALIA GEMENT OF PATIENT CARE PER NURSING PROTOCOL Performed By: #### L 501.080 ####[facility] [address] [place], [address] CBC W/Diff, Automatedon 11- Absolute Lymph 1.39 X10 3/uL Normal 0.83-4.51 [facility] Comment on above: Performed By: #### L 500.2500, L100.0100 ####[facility] [address] [place], [address] Absolute Neut 6.8 X10 3/uL Normal 2.0-7.7 [facility] Comment on above: Performed By: #### L 500.2500, L100.0100 ####[facility] [address] [place], [address] Basophils/100 WBC (Bld) 0.7 % Normal 0-1 [facility] Comment on above: Performed By: #### L 500.2500, L100.0100 ####[facility] [address] [place], [address] Eosinophils/100 WBC (Bld) 1.1 % Normal 0-5 [facility] Comment on above: Performed By: #### L 500.2500, L100.0100 ####[facility] [address] [place], [address] Erythrocyte distribution width (RBC) [Ratio] 13.3 % Normal 11.6-14.6 [facility] Comment on above: Performed By: #### L 500.2500, L100.0100 ####[facility] [address] [place], [address] Hematocrit (Bld) [Volume fraction] 38.1 % Normal 37-47 [facility] Comment on above: Performed By: #### L 500.2500, L100.0100 ####[facility] [address] [place], [address] Hemoglobin (Bld) [Mass/Vol] 12.3 g/dL Normal 12.0-15.0 [facility] Comment on above: Performed By: #### L 500.2500, L100.0100 ####[facility] [address] [place], [address] IG% 1.200 High 0.0-0.9 [facility] Comment on above: Result Comment: IG% - Immature Granulocytes (promyelocytes, myelocytes andmetamyelocytes) > 1% indicates that a LEFT SHIFT is Present. Performed By: #### L 500.2500, L100.0100 ####[facility] [address] [place], [address] Lymphocytes/100 WBC (Bld) 15.7 % Low 19-41 [facility] Comment on above: Performed By: #### L 500.2500, L100.0100 ####[facility] [address] [place], [address] MCH (RBC) [Entitic mass] 26.9 pg Low 27.0-32.0 [facility] Comment on above: Performed By: #### L 500.2500, L100.0100 ####[facility] [address] [place], [address] MCHC (RBC) [Mass/Vol] 32.3 g/dL Normal 32-36 [facility] Comment on above: Performed By: #### L 500.2500, L100.0100 ####[facility] [address] [place], [address] MCV (RBC) [Entitic vol] 83.2 fL Normal 81-99 [facility] Comment on above: Performed By: #### L 500.2500, L100.0100 ####[facility] [address] [place], [address] Monocytes/100 WBC (Bld) 4.9 % Normal 0-10 [facility] Comment on above: Performed By: #### L 500.2500, L100.0100 ####[facility] [address] [place], [address] Neutrophils/100 WBC (Bld) 76.4 % High 47-70 [facility] Comment on above: Performed By: #### L 500.2500, L100.0100 ####[facility] [address] [place], [address] Nucleated RBC (Bld) [#/Vol] 0 10*3/uL Normal 0-5 [facility] Comment on above: Performed By: #### L 500.2500, L100.0100 ####[facility] [address] [place], [address] Platelet mean volume (Bld) [Entitic vol] 9.3 fL Normal 6.2-12.0 [facility] Comment on above: Performed By: #### L 500.2500, L100.0100 ####[facility] [address] [place], [address] Platelets (Bld) [#/Vol] 284 10*3/uL Normal 150-450 [facility] Comment on above: Performed By: #### L 500.2500, L100.0100 ####[facility] [address] [place], [address] RBC (Bld) [#/Vol] 4.58 10*6/uL Normal 4.2-5.4 [facility] Comment on above: Performed By: #### L 500.2500, L100.0100 ####[facility] [address] [place], [address] RDW SD 40.4 fl Normal 35.1-43.9 [facility] Comment on above: Performed By: #### L 500.2500, L100.0100 ####[facility] [address] [place], [address] WBC (Bld) [#/Vol] 8.9 10*3/uL Normal 4.4-11.0 [facility] Comment on above: Performed By: #### L 500.2500, L100.0100 ####[facility] [address] [place], [address] ALP [Catalytic activity/Vol] Ordered By: Nicole Trujillo on 04-26-2024 Serum or plasma alkaline phosphatase measurement 95 U/L 45-117 [facility] ALT [Catalytic activity/Vol] Ordered By: Nicole Trujillo on 04-26-2024 Serum or plasma alanine aminotransferase (ALT) measurement 8 U/L Low 13-56 [facility] Albumin [Mass/Vol]Ordered By : Nicole Trujillo on 04-26-2024 Serum or plasma albumin measurement (mass/volume) 1.7 g/dL Low 3.2-5.0 [facility] Albumin to globulin ratioOrd ered By: Nicole Trujillo on 04-26-2024 Albumin to globulin ratio 0.4 RATIO Low 0.9-2.4 [facility] Bedside Glucoseon 04-26-2024 FINGERSTICK GLU 319 mg/dL High 74-106 [facility] Comment on above: Result Comment: TALIA GEMENT OF PATIENT CARE PER NURSING PROTOCOL Performed By: #### L 501.080 ####[facility] [address] [place], [address] FINGERSTICK GLU 280 mg/dL High 74-106 [facility] Comment on above: Result Comment: TALIA GEMENT OF PATIENT CARE PER NURSING PROTOCOL Performed By: #### L 501.080 ####[facility] [address] [place], [address] FINGERSTICK GLU 150 mg/dL High 74-106 [facility] Comment on above: Result Comment: TALIA GEMENT OF PATIENT CARE PER NURSING PROTOCOL Performed By: #### L 501.080 ####[facility] [address] [place], [address] Bilirubin, totalOrdered By: Nicole Trujillo on 04-26-2024 Bilirubin, total 0.50 mg/dL 0.20-1.00 [facility] CBC W/Diff, Automatedon 04-05 Absolute Lymph 1.72 X10 3/uL Normal 0.83-4.51 [facility] Comment on above: Performed By: #### L 100.0100, L500.4050, L501.2300, L501.5200 ####[facility] [address] [place], [address] Absolute Neut 6.8 X10 3/uL Normal 2.0-7.7 [facility] Comment on above: Performed By: #### L 100.0100, L500.4050, L501.2300, L501.5200 ####[facility] [address] [place], [address] Basophils/100 WBC (Bld) 0.4 % Normal 0-1 [facility] Comment on above: Performed By: #### L 100.0100, L500.4050, L501.2300, L501.5200 ####[facility] [address] [place], [address] Eosinophils/100 WBC (Bld) 1.2 % Normal 0-5 [facility] Comment on above: Performed By: #### L 100.0100, L500.4050, L501.2300, L501.5200 ####[facility] [address] [place], [address] Erythrocyte distribution width (RBC) [Ratio] 13.2 % Normal 11.6-14.6 [facility] Comment on above: Performed By: #### L 100.0100, L500.4050, L501.2300, L501.5200 ####[facility] [address] [place], [address] Hematocrit (Bld) [Volume fraction] 33.4 % Low 37-47 [facility] Comment on above: Performed By: #### L 100.0100, L500.4050, L501.2300, L501.5200 ####[facility] [address] [place], [address] Hemoglobin (Bld) [Mass/Vol] 11.3 g/dL Low 12.0-15.0 [facility] Comment on above: Performed By: #### L 100.0100, L500.4050, L501.2300, L501.5200 ####[facility] [address] [place], [address] IG% 1.200 High 0.0-0.9 [facility] Comment on above: Result Comment: IG% - Immature Granulocytes (promyelocytes, myelocytes andmetamyelocytes) > 1% indicates that a LEFT SHIFT is Present. Performed By: #### L 100.0100, L500.4050, L501.2300, L501.5200 ####[facility] [address] [place], [address] Lymphocytes/100 WBC (Bld) 18.4 % Low 19-41 [facility] Comment on above: Performed By: #### L 100.0100, L500.4050, L501.2300, L501.5200 ####[facility] [address] [place], [address] MCH (RBC) [Entitic mass] 27.6 pg Normal 27.0-32.0 [facility] Comment on above: Performed By: #### L 100.0100, L500.4050, L501.2300, L501.5200 ####[facility] [address] [place], [address] MCHC (RBC) [Mass/Vol] 33.8 g/dL Normal 32-36 [facility] Comment on above: Performed By: #### L 100.0100, L500.4050, L501.2300, L501.5200 ####[facility] [address] [place], [address] MCV (RBC) [Entitic vol] 81.7 fL Normal 81-99 [facility] Comment on above: Performed By: #### L 100.0100, L500.4050, L501.2300, L501.5200 ####[facility] [address] [place], [address] Monocytes/100 WBC (Bld) 5.7 % Normal 0-10 [facility] Comment on above: Performed By: #### L 100.0100, L500.4050, L501.2300, L501.5200 ####[facility] [address] [place], [address] Neutrophils/100 WBC (Bld) 73.1 % High 47-70 [facility] Comment on above: Performed By: #### L 100.0100, L500.4050, L501.2300, L501.5200 ####[facility] [address] [place], [address] Nucleated RBC (Bld) [#/Vol] 0 10*3/uL Normal 0-5 [facility] Comment on above: Performed By: #### L 100.0100, L500.4050, L501.2300, L501.5200 ####[facility] [address] [place], [address] Platelet mean volume (Bld) [Entitic vol] 9.3 fL Normal 6.2-12.0 [facility] Comment on above: Performed By: #### L 100.0100, L500.4050, L501.2300, L501.5200 ####[facility] [address] [place], [address] Platelets (Bld) [#/Vol] 234 10*3/uL Normal 150-450 [facility] Comment on above: Performed By: #### L 100.0100, L500.4050, L501.2300, L501.5200 ####[facility] [address] [place], [address] RBC (Bld) [#/Vol] 4.09 10*6/uL Low 4.2-5.4 [facility] Comment on above: Performed By: #### L 100.0100, L500.4050, L501.2300, L501.5200 ####[facility] [address] [place], [address] RDW SD 39.2 fl Normal 35.1-43.9 [facility] Comment on above: Performed By: #### L 100.0100, L500.4050, L501.2300, L501.5200 ####[facility] [address] [place], [address] WBC (Bld) [#/Vol] 9.3 10*3/uL Normal 4.4-11.0 [facility] Comment on above: Performed By: #### L 100.0100, L500.4050, L501.2300, L501.5200 ####[facility] [address] [place], [address] Comprehensive Metabolic Prof [facility] 04-26-2024 Albumin [Mass/Vol] 1.7 g/dL Low 3.2-5.0 [facility] Comment on above: Performed By: #### L 100.0100, L500.4050, L501.2300, L501.5200 ####[facility] [address] [place], [address] Albumin/Globulin [Mass ratio] 0.4 {ratio} Low 0.9-2.4 [facility] Comment on above: Performed By: #### L 100.0100, L500.4050, L501.2300, L501.5200 ####[facility] [address] [place], [address] ALK P 95 U/L Normal 45-117 [facility] Comment on above: Performed By: #### L 100.0100, L500.4050, L501.2300, L501.5200 ####[facility] [address] [place], [address] ALT [Catalytic activity/Vol] 8 U/L Low 13-56 [facility] Comment on above: Performed By: #### L 100.0100, L500.4050, L501.2300, L501.5200 ####[facility] [address] [place], [address] AST [Catalytic activity/Vol] 13 U/L Low 15-37 [facility] Comment on above: Performed By: #### L 100.0100, L500.4050, L501.2300, L501.5200 ####[facility] [address] [place], [address] Bilirubin [Mass/Vol] 0.50 mg/dL Normal 0.20-1.00 [facility] Comment on above: Result Comment: For patients on eltrombopag therapy, use of Dimension [place] TBIL is not recommended. Performed By: #### L 100.0100, L500.4050, L501.2300, L501.5200 ####[facility] [address] [place], [address] BUN/CRE 23.5 RATIO High 10-20 [facility] Comment on above: Performed By: #### L 100.0100, L500.4050, L501.2300, L501.5200 ####[facility] [address] [place], [address] CA,Total 8.0 mg/dL Low 8.5-10.1 [facility] Comment on above: Performed By: #### L 100.0100, L500.4050, L501.2300, L501.5200 ####[facility] [address] [place], [address] Chloride [Moles/Vol] 98 mmol/L Normal 98-107 [facility] Comment on above: Performed By: #### L 100.0100, L500.4050, L501.2300, L501.5200 ####[facility] [address] [place], [address] CO2 [Moles/Vol] 30.0 mmol/L Normal 21.0-32.0 [facility] Comment on above: Performed By: #### L 100.0100, L500.4050, L501.2300, L501.5200 ####[facility] [address] [place], [address] Creatinine [Mass/Vol] 0.81 mg/dL Normal 0.55-1.02 [facility] Comment on above: Result Comment: The validity of the calculated GFR GFRAA in patients over70 years has not been determined. Clinical correlation isessential. Performed By: #### L 100.0100, L500.4050, L501.2300, L501.5200 ####[facility] [address] [place], [address] ECRCL 79.01 ml/min Normal [facility] Comment on above: Performed By: #### L 100.0100, L500.4050, L501.2300, L501.5200 ####[facility] [address] [place], [address] EST GFR - AA 96 mL/min Normal >60 [facility] Comment on above: Result Comment: Afri can [place]an GFR Calc Performed By: #### L 100.0100, L500.4050, L501.2300, L501.5200 ####[facility] [address] [place], [address] GAP 4 Low 5-15 [facility] Comment on above: Performed By: #### L 100.0100, L500.4050, L501.2300, L501.5200 ####[facility] [address] [place], [address] GFR/1.73 sq M.predicted among non-blacks MDRD (S/P/Bld) [Vol rate/Area] 79 mL/min/{1.73_m2} Normal >60 [facility] Comment on above: Result Comment: Non- GFR Calc Performed By: #### L 100.0100, L500.4050, L501.2300, L501.5200 ####[facility] [address] [place], [address] Globulin (S) [Mass/Vol] 4.7 g/dL High 2.2-4.2 [facility] Comment on above: Performed By: #### L 100.0100, L500.4050, L501.2300, L501.5200 ####[facility] [address] [place], [address] Glucose [Mass/Vol] 146 mg/dL High 74-106 [facility] Comment on above: Result Comment: Fast ing Glucose result greater than or equal to 126 mg/dLsuggests DIABETES MELLITUS per A.D.A. criteria. Performed By: #### L 100.0100, L500.4050, L501.2300, L501.5200 ####[facility] [address] [place], [address] Potassium [Moles/Vol] 3.2 mmol/L Low 3.5-5.1 [facility] Comment on above: Performed By: #### L 100.0100, L500.4050, L501.2300, L501.5200 ####[facility] [address] [place], [address] Sodium [Moles/Vol] 132 mmol/L Low 136-145 [facility] Comment on above: Performed By: #### L 100.0100, L500.4050, L501.2300, L501.5200 ####[facility] [address] [place], [address] T PROT 6.4 g/dL Normal 6.4-8.2 [facility] Comment on above: Performed By: #### L 100.0100, L500.4050, L501.2300, L501.5200 ####[facility] [address] [place], [address] Urea nitrogen [Mass/Vol] 19 mg/dL High 7-18 [facility] Comment on above: Performed By: #### L 100.0100, L500.4050, L501.2300, L501.5200 ####[facility] [address] [place], [address] M R Staph Aureus DNA by PCRo n 04-26-2024 MRSA DNA ASSAY Negative Normal Negative [facility] Comment on above: Performed By: #### L 8200.1000 ####[facility] [address] [place], [address] MRSA Wound DNA by PCRon 04-05 MRSA DNA ASSAY Negative Normal Negative [facility] Comment on above: Order Comment: left breast Performed By: #### L 8200.1075 ####[facility] [address] [place], [address] SA DNA ASSAY Negative Normal Negative [facility] Comment on above: Order Comment: left breast Performed By: #### L 8200.1075 ####[facility] [address] [place], [address] MRSA detection PCROrdered By : Nicole Trujillo on 04-26-2024 MRSA detection PCR Negative Negative [facility] Magnesiumon 04-26-2024 Magnesium [Mass/Vol] 2.2 mg/dL Normal 1.6-2.6 [facility] Comment on above: Performed By: #### L 100.0100, L500.4050, L501.2300, L501.5200 ####[facility] [address] [place], [address] Magnesium measurementOrdered By: Nicole Trujillo on 04-26-2024 Magnesium measurement 2.2 mg/dL 1.6-2.6 [facility] No Panel InformationOrdered By: Nicole Trujillo on 04-26-2024 13 U/L Low 15-37 [facility] Phosphoruson 04-26-2024 Phosphate [Mass/Vol] 3.2 mg/dL Normal 2.5-4.9 [facility] Comment on above: Performed By: #### L 100.0100, L500.4050, L501.2300, L501.5200 ####[facility] [address] [place], [address] Phosphorus measurementOrdere d By: Nicole Trujillo on 04-26-2024 Phosphorus measurement 3.2 mg/dL 2.5-4.9 [facility] Serum globulin measurementOr dered By: Nicole Trujillo on 04-26-2024 Serum globulin measurement 4.7 g/dL High 2.2-4.2 [facility] Total proteinOrdered By: Jenae Trujillo on 04-26-2024 Total protein 6.4 g/dL 6.4-8.2 [facility] Abdomen/Pelvis W IV Cont ONL Yon 04-25-2024 Abdomen/Pelvis W IV Cont ONLY Normal [facility] Bedside Glucoseon 04-25-2024 FINGERSTICK GLU 341 mg/dL High 74-106 [facility] Comment on above: Result Comment: TALIA GEMENT OF PATIENT CARE PER NURSING PROTOCOL Performed By: #### L 501.080 ####[facility] [address] [place], [address] FINGERSTICK GLU 336 mg/dL High 74-106 [facility] Comment on above: Result Comment: TALIA GEMENT OF PATIENT CARE PER NURSING PROTOCOL Performed By: #### L 501.080 ####[facility] [address] [place], [address] CBC W/Diff, Automatedon 04-05 Absolute Lymph 0.97 X10 3/uL Normal 0.83-4.51 [facility] Comment on above: Performed By: #### L 100.0100, L501.2450, L503.6005, L500.4050 ####[facility] [address] [place], [address] Absolute Neut 10.8 X10 3/uL High 2.0-7.7 [facility] Comment on above: Performed By: #### L 100.0100, L501.2450, L503.6005, L500.4050 ####[facility] [address] [place], [address] Basophils/100 WBC (Bld) 0.4 % Normal 0-1 [facility] Comment on above: Performed By: #### L 100.0100, L501.2450, L503.6005, L500.4050 ####[facility] [address] [place], [address] Eosinophils/100 WBC (Bld) 0.5 % Normal 0-5 [facility] Comment on above: Performed By: #### L 100.0100, L501.2450, L503.6005, L500.4050 ####[facility] [address] [place], [address] Erythrocyte distribution width (RBC) [Ratio] 13.0 % Normal 11.6-14.6 [facility] Comment on above: Performed By: #### L 100.0100, L501.2450, L503.6005, L500.4050 ####[facility] [address] [place], [address] Hematocrit (Bld) [Volume fraction] 39.4 % Normal 37-47 [facility] Comment on above: Performed By: #### L 100.0100, L501.2450, L503.6005, L500.4050 ####[facility] [address] [place], [address] Hemoglobin (Bld) [Mass/Vol] 13.3 g/dL Normal 12.0-15.0 [facility] Comment on above: Performed By: #### L 100.0100, L501.2450, L503.6005, L500.4050 ####[facility] [address] [place], [address] IG% 1.100 High 0.0-0.9 [facility] Comment on above: Result Comment: IG% - Immature Granulocytes (promyelocytes, myelocytes andmetamyelocytes) > 1% indicates that a LEFT SHIFT is Present. Performed By: #### L 100.0100, L501.2450, L503.6005, L500.4050 ####[facility] [address] [place], [address] Lymphocytes/100 WBC (Bld) 7.7 % Low 19-41 [facility] Comment on above: Performed By: #### L 100.0100, L501.2450, L503.6005, L500.4050 ####[facility] [address] [place], [address] MCH (RBC) [Entitic mass] 27.0 pg Normal 27.0-32.0 [facility] Comment on above: Performed By: #### L 100.0100, L501.2450, L503.6005, L500.4050 ####[facility] [address] [place], [address] MCHC (RBC) [Mass/Vol] 33.8 g/dL Normal 32-36 [facility] Comment on above: Performed By: #### L 100.0100, L501.2450, L503.6005, L500.4050 ####[facility] [address] [place], [address] MCV (RBC) [Entitic vol] 79.9 fL Low 81-99 [facility] Comment on above: Performed By: #### L 100.0100, L501.2450, L503.6005, L500.4050 ####[facility] [address] [place], [address] Monocytes/100 WBC (Bld) 4.2 % Normal 0-10 [facility] Comment on above: Performed By: #### L 100.0100, L501.2450, L503.6005, L500.4050 ####[facility] [address] [place], [address] Neutrophils/100 WBC (Bld) 86.1 % High 47-70 [facility] Comment on above: Performed By: #### L 100.0100, L501.2450, L503.6005, L500.4050 ####[facility] [address] [place], [address] Nucleated RBC (Bld) [#/Vol] 0 10*3/uL Normal 0-5 [facility] Comment on above: Performed By: #### L 100.0100, L501.2450, L503.6005, L500.4050 ####[facility] [address] [place], [address] Platelet mean volume (Bld) [Entitic vol] 9.4 fL Normal 6.2-12.0 [facility] Comment on above: Performed By: #### L 100.0100, L501.2450, L503.6005, L500.4050 ####[facility] [address] [place], [address] Platelets (Bld) [#/Vol] 259 10*3/uL Normal 150-450 [facility] Comment on above: Performed By: #### L 100.0100, L501.2450, L503.6005, L500.4050 ####[facility] [address] [place], [address] RBC (Bld) [#/Vol] 4.93 10*6/uL Normal 4.2-5.4 [facility] Comment on above: Performed By: #### L 100.0100, L501.2450, L503.6005, L500.4050 ####[facility] [address] [place], [address] RDW SD 37.1 fl Normal 35.1-43.9 [facility] Comment on above: Performed By: #### L 100.0100, L501.2450, L503.6005, L500.4050 ####[facility] [address] [place], [address] WBC (Bld) [#/Vol] 12.6 10*3/uL High 4.4-11.0 [facility] Comment on above: Performed By: #### L 100.0100, L501.2450, L503.6005, L500.4050 ####[facility] [address] [place], [address] Comprehensive Metabolic Prof [facility] 04-25-2024 Albumin [Mass/Vol] 2.0 g/dL Low 3.2-5.0 [facility] Comment on above: Performed By: #### L 100.0100, L501.2450, L503.6005, L500.4050 ####[facility] [address] [place], [address] Albumin/Globulin [Mass ratio] 0.4 {ratio} Low 0.9-2.4 [facility] Comment on above: Performed By: #### L 100.0100, L501.2450, L503.6005, L500.4050 ####[facility] [address] [place], [address] ALK P 124 U/L High 45-117 [facility] Comment on above: Performed By: #### L 100.0100, L501.2450, L503.6005, L500.4050 ####[facility] [address] [place], [address] ALT [Catalytic activity/Vol] 9 U/L Low 13-56 [facility] Comment on above: Performed By: #### L 100.0100, L501.2450, L503.6005, L500.4050 ####[facility] [address] [place], [address] AST [Catalytic activity/Vol] 17 U/L Normal 15-37 [facility] Comment on above: Performed By: #### L 100.0100, L501.2450, L503.6005, L500.4050 ####[facility] [address] [place], [address] Bilirubin [Mass/Vol] 0.80 mg/dL Normal 0.20-1.00 [facility] Comment on above: Result Comment: For patients on eltrombopag therapy, use of Dimension [place] TBIL is not recommended. Performed By: #### L 100.0100, L501.2450, L503.6005, L500.4050 ####[facility] [address] [place], [address] BUN/CRE 29.4 RATIO High 10-20 [facility] Comment on above: Performed By: #### L 100.0100, L501.2450, L503.6005, L500.4050 ####[facility] [address] [place], [address] CA,Total 8.7 mg/dL Normal 8.5-10.1 [facility] Comment on above: Performed By: #### L 100.0100, L501.2450, L503.6005, L500.4050 ####[facility] [address] [place], [address] Chloride [Moles/Vol] 95 mmol/L Low 98-107 [facility] Comment on above: Performed By: #### L 100.0100, L501.2450, L503.6005, L500.4050 ####[facility] [address] [place], [address] CO2 [Moles/Vol] 29.0 mmol/L Normal 21.0-32.0 [facility] Comment on above: Performed By: #### L 100.0100, L501.2450, L503.6005, L500.4050 ####[facility] [address] [place], [address] Creatinine [Mass/Vol] 0.65 mg/dL Normal 0.55-1.02 [facility] Comment on above: Result Comment: The validity of the calculated GFR GFRAA in patients over70 years has not been determined. Clinical correlation isessential. Performed By: #### L 100.0100, L501.2450, L503.6005, L500.4050 ####[facility] [address] [place], [address] ECRCL 109.13 ml/min Normal [facility] Comment on above: Performed By: #### L 100.0100, L501.2450, L503.6005, L500.4050 ####[facility] [address] [place], [address] EST GFR - AA 123 mL/min Normal >60 [facility] Comment on above: Result Comment: Afri can [place]an GFR Calc Performed By: #### L 100.0100, L501.2450, L503.6005, L500.4050 ####[facility] [address] [place], [address] GAP 6 Normal 5-15 [facility] Comment on above: Performed By: #### L 100.0100, L501.2450, L503.6005, L500.4050 ####[facility] [address] [place], [address] GFR/1.73 sq M.predicted among non-blacks MDRD (S/P/Bld) [Vol rate/Area] 102 mL/min/{1.73_m2} Normal >60 [facility] Comment on above: Result Comment: Non- GFR Calc Performed By: #### L 100.0100, L501.2450, L503.6005, L500.4050 ####[facility] [address] [place], [address] Globulin (S) [Mass/Vol] 5.7 g/dL High 2.2-4.2 [facility] Comment on above: Performed By: #### L 100.0100, L501.2450, L503.6005, L500.4050 ####[facility] [address] [place], [address] Glucose [Mass/Vol] 359 mg/dL High 74-106 [facility] Comment on above: Result Comment: Gluc ose result greater than or equal to 200 mg/dLsuggests DIABETES MELLITUS per A.D.A. criteria. Performed By: #### L 100.0100, L501.2450, L503.6005, L500.4050 ####[facility] [address] [place], [address] Potassium [Moles/Vol] 3.5 mmol/L Normal 3.5-5.1 [facility] Comment on above: Performed By: #### L 100.0100, L501.2450, L503.6005, L500.4050 ####[facility] [address] [place], [address] Sodium [Moles/Vol] 130 mmol/L Low 136-145 [facility] Comment on above: Performed By: #### L 100.0100, L501.2450, L503.6005, L500.4050 ####[facility] [address] [place], [address] T PROT 7.7 g/dL Normal 6.4-8.2 [facility] Comment on above: Performed By: #### L 100.0100, L501.2450, L503.6005, L500.4050 ####[facility] [address] [place], [address] Urea nitrogen [Mass/Vol] 19 mg/dL High 7-18 [facility] Comment on above: Performed By: #### L 100.0100, L501.2450, L503.6005, L500.4050 ####[facility] [address] [place], [address] Emergency Department Summary on 04-25-2024 Emergency Department Summary Normal [facility] H AND P Exam - Hospitaliston 04-25-2024 H&P Exam - Hospitalist Normal [facility] Lactic Acidon 04-25-2024 Lactate [Moles/Vol] 3.0 mmol/L Invalid Interpretation Code 0.4-1.9 [facility] Comment on above: Result Comment: Crit ical Result(s) Called at: 18:55:46 04/25/2024 by:Eneida Elizalde. Results read back by same. Performed By: #### L 503.6005 ####[facility] [address] [place], [address] Lactate [Moles/Vol] 2.0 mmol/L Normal 0.4-1.9 [facility] Comment on above: Order Comment: Y Result Comment: Crit ical Result(s) Called at: 14:43:32 04/25/2024 by:Eneida Short. Results read back by same. Performed By: #### L 100.0100, L501.2450, L503.6005, L500.4050 ####[facility] [address] [place], [address] Lactic acid measurementOrder ed By: Jeremiah Rawls on 04-25-2024 Lactic acid measurement 3.0 mmol/L High 0.4-2.0 [facility] Lipaseon 04-25-2024 Lipase [Catalytic activity/Vol] 22 U/L Normal 13-75 [facility] Comment on above: Result Comment: Gege edgar note:LIPASE revised reference range effective 22.New Lipase methodology. Expected to produce lower valuesthan the previous assay method.NEW Reference Range: 13 - 75 U/L Performed By: #### L 100.0100, L501.2450, L503.6005, L500.4050 ####[facility] [address] [place], [address] Lipase measurementOrdered By : Jeremiah Rawls on 04-25-2024 Lipase measurement 22 U/L 13- [facility] Telephone ([facility]) ----- TRENTON JACKSON ([id number]) 1970 [facility] Date Time Provider Department 02/06/24 GERDA RIVERO During your visit today, we recorded the following information about you: Allergies As of Date: 02/06/2024 Noted Allergy Reaction LATEX 01/18/2011 9 - Itching Comments: Red and dry cracking skin Date Reviewed: 10/19/2023 Reviewed by: Jose Antonio Singh APRN.[employer] DELIVERER - Fully Assessed Reason for Visit: Appointment [...] all medications X 4 days per her [id number]. Problem List As Of Date 02/06/2024 Noted [...] Coronary artery (more content not included)... Normal [facility] 11-20-2023 [facility] ----- TRENTON JACKSON ([id number]) 1970 [facility] Date Time Provider Department 11/20/[address] [facility] During your visit today, we recorded the following information about you: Stephanie De La Cruz 11/20/2023 8:48 AM Signed The patient was discharged from [facility] 10-20-23 with an order to schedule with the Heart Failure Clinic. The Clinic reached out to the patient with no response. Therefore, this is considered a deferral of the Clinic's services at this time. Allergies As of Date: 11/20/2023 Noted Allergy Reaction LATEX 01/18/2011 9 - Itching Comments: Red and dry cracking skin Date Reviewed: 10/19/2023 Reviewed by: Jose Antonio Singh APRN.CAR DELIVERER - Fully Assessed Reason for Visit: Orders [461] Cmt: [facility] deferral Prescriptions as of 11/20/2023 [...] all medications X 4 days per her [id number]. Problem List As Of Date 11/20/2023 Noted [...] 07/20/2018 Frailty (more content not included)... Normal [facility] CNPNon 10-22-2023 [facility] Telephone ([facility]) ----- TRENTON JACKSON ([id number]) 1970 [facility] Date Time Provider Department 10/22/[address] [facility] During your visit today, we recorded the following information about you: Stephanie De La Cruz 10/22/2023 9:37 AM Signed Patient was discharged from [facility] 10-20-23 with an order to schedule with the Heart Failure Clinic. However, the patient was then immediately admitted to a long term facility. A letter was mailed to the patient asking them to contact the Clinic upon discharge from the facility. Allergies As of Date: 10/22/2023 Noted Allergy Reaction LATEX 01/18/2011 9 - Itching Comments: Red and dry cracking skin Date Reviewed: 10/19/2023 Reviewed by: Jose Antonio Singh APRN.[facility] - Fully Assessed Reason for Visit: Orders [681] Cmt: [facility] order contact/SNF ltr Prescriptions as [...] all medications X 4 days per her [id number]. Problem List As Of Date 10/22/2023 Noted [...] 06/08/2018 Avinash (more content not included)... Normal [facility] Basic metabolic 2000 panelon 10-19-2023 Anion gap [Moles/Vol] 12 mmol/L Normal 9-18 [facility] Comment on above: Order Comment: Speci men Type: BLOOD SPECIMEN Ordering Facility: [facility] Address: [address] [place] [address] Performed By: #### 2 4321-2 #### [facility] CLIA [id number] 1 [place] [address] [place] Calcium [Mass/Vol] 8.9 mg/dL Normal 8.5-10.2 [facility] Comment on above: Order Comment: Speci men Type: BLOOD SPECIMEN Ordering Facility: [facility] Address: [address] [place] [address] Performed By: #### 2 4321-2 #### [facility] CLIA [id number] 1 [place] [address] [place] Chloride [Moles/Vol] 103 mmol/L Normal 97-105 [facility] Comment on above: Order Comment: Speci men Type: BLOOD SPECIMEN Ordering Facility: [facility] Address: [address] [place] [address] Performed By: #### 2 4321-2 #### [facility] CLIA [id number] [address] [place] CO2 [Moles/Vol] 22 mmol/L Normal 22-30 [facility] Comment on above: Order Comment: Speci men Type: BLOOD SPECIMEN Ordering Facility: [facility] Address: [address] [place] [address] Performed By: #### 2 4321-2 #### [facility] CLIA [id number] 1 [place] [address] [place] Creatinine [Mass/Vol] 1.07 mg/dL High 0.58-0.96 [facility] Comment on above: Order Comment: Speci men Type: BLOOD SPECIMEN Ordering Facility: [facility] Address: [address] [place] [address] Performed By: #### 2 4321-2 #### [facility] CLIA [id number] 1 [place] [address] [place] Creatinine and Glomerular filtration rate.predicted panel (S/P/Bld) 63 mL/min/1.73m??? Normal >=60 [facility] Comment on above: Order Comment: Radha tony Type: BLOOD SPECIMEN Ordering Facility: [facility] Address: [address] [place] [address] Result Comment: Crissy mated Glomerular Filtration Rate [...] GFR. Performed By: #### 2 4321-2 #### [facility] CLIA [id number] [address] [place] [address] [place] Glucose [Mass/Vol] 104 mg/dL High 74-99 [facility] Comment on above: Order Comment: Radha tony Type: BLOOD SPECIMEN Ordering Facility: [facility] Address: [address] [place] [address] Result Comment: The [place] [employer] Association (ADA) provides guidance for cutoff [...] Standards of Medical Care in Diabetes 2016, [place] [employer]. Diabetes Care. 2016.39(Suppl 1). Performed By: #### 2 4321-2 #### [facility] CLIA [id number] [address] [place] [address] [place] Potassium [Moles/Vol] 4.2 mmol/L Normal 3.7-5.1 [facility] Comment on above: Order Comment: Radha tony Type: BLOOD SPECIMEN Ordering Facility: [facility] Address: [address] [address] Performed By: #### 2 4321-2 #### [facility] CLIA [id number] [address] Sodium [Moles/Vol] 137 mmol/L Normal 136-144 [facility] Comment on above: Order Comment: Speci men Type: BLOOD SPECIMEN Ordering Facility: [facility] Address: [address] [place] [address] Performed By: #### 2 4321-2 #### [facility] CLIA [id number] [address] Urea nitrogen [Mass/Vol] 49 mg/dL High 7-21 [facility] Comment on above: Order Comment: Speci men Type: BLOOD SPECIMEN Ordering Facility: [facility] Address: [address] [place] [address] Performed By: #### 2 4321-2 #### [facility] CLIA [id number] [address] OF [facility] CNDSon 10-19-2023 [facility] HNO ID: [id number] Author: TATIANA RAMSAY MD Service: Hospital Medicine Author Type: Nurse Practitioner Type: Discharge Summary Filed: 10/22/2023 09:18 Note Text: ----- Attestation signed by Tatiana Ramsay MD at 10/22/2023 9:18 AM Attending Note I have reviewed the PA/PAINTINGS RESTORER note. Additions or changes: None Signature: Tatiana Ramsay MD Date: 10/22/2023 Time: 9:18 AM ----- DISCHARGE SUMMARY PATIENT NAME: Trenton Jackson ADMISSION DATE: 10/18/2023 DISCHARGE DATE: 10/19/2023 Attending Physician: Tatiana Ramsay, Bindu Code Status: Prior Highest Readmission Risk Score: [...] internal medicine. Schedule an appointment by calling [phone]. You can also be seen at [facility]. Information for this clinic has been attached to your discharge instructions. -Follow-up with Dr. May with orthopedics in 4 weeks -Follow up with the heart failure clinic. AN APPOINTMENT REQUEST HAS BEEN MADE FOR YOU. IF YOU HAVE NOT HEARD FROM THE SCHEDULERS BY SUNDAY PLEASE CALL [phone] TO CONFIRM YOUR APPOINTMENT DATE/TIME -Please work [...] Cleanse with (more content not included)... Normal [facility] CONSULTon 10-19-2023 CONSULT HNO ID: [id number] Author: LATRICIA HERNANDEZ MD Service: Clinical Cardiology Author Type: Physician Type: Consults Filed: 10/19/2023 12:22 Note Text: CONSULT: CARDIOLOGY SERVICE SERVICE DATE: 10/19/2023 SERVICE TIME: 10:30 AM CONSULTING PHYSICIAN: Latricia Hernandez PCP: Nathaly Leonard ATTENDING: Tatiana Ramsay, * REASON FOR CONSULT: [...] daily. insulin (more content not included)... 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 PMH chest pain, DM, HTN. PERTINENT REVIEW OF SYSTEMS: GENERAL: denies fever PAIN ASSESSMENT: endorses 8/10 pain to right hip SKIN: wound on [...] Incision Anterior;Proximal;Right;U pper Leg Routine Active Darlyn aCntor, PEDIATRICIAN/MEDICAL DOCTOR.CAR DELIVERER - Sp (more content not included)... Normal [facility] ECHOon 10-19-2023 Echocardiography Echocardiography Rep ort: Transthoracic Echo [facility] Date of service: 10/19/2023 10:23:25 AM [facility] Ordering physician: JOSE ANTONIO SINGH Indication: Limited for pericardial effusion Technologist: Mode Galvez [facility] Interpreting physician: Colin Drake MD [...] * * Final * * * CC [employer] : [id number] Normal [facility] ED NOTEon 10-19-2023 ED NOTE HNO ID: [id number] Author: JIMY CHING RN Service: Emergency Medicine Author Type: Registered Nurse Type: ED Notes Filed: 10/19/2023 00:29 Note Text: . Normal [facility] ED NOTE HNO ID: [id number] Author: JIMY CHING RN Service: Emergency Medicine Author Type: Registered Nurse Type: ED Notes Filed: 10/19/2023 00:30 Note Text: Report to floor attempted RN not available to take report Normal [facility] Hepatic function 2000 panelo n 10-19-2023 Albumin [Mass/Vol] 3.4 g/dL Low 3.9-4.9 [facility] Comment on above: Order Comment: Speci men Type: BLOOD SPECIMEN Ordering Facility: [facility] Address: [address] [place] [address] Performed By: #### 2 4321-2 #### [facility] CLIA [id number] 1 [place] [address] [place] ALP [Catalytic activity/Vol] 134 U/L High 34-123 [facility] Comment on above: Order Comment: Speci men Type: BLOOD SPECIMEN Ordering Facility: [facility] Address: [address] [place] [address] Performed By: #### 2 4321-2 #### [facility] CLIA [id number] [address] OF [facility] ALT With P-5'-P [Catalytic activity/Vol] 17 U/L Normal 7-38 [facility] Comment on above: Order Comment: Speci men Type: BLOOD SPECIMEN Ordering Facility: [facility] Address: [address] [place] [address] Performed By: #### 2 4321-2 #### [facility] CLIA [id number] [address] AST With P-5'-P [Catalytic activity/Vol] 19 U/L Normal 13-35 [facility] Comment on above: Order Comment: Speci men Type: BLOOD SPECIMEN Ordering Facility: [facility] Address: [address] [place] [address] Performed By: #### 2 4321-2 #### [facility] CLIA [id number] [address] Bilirubin [Mass/Vol] 0.5 mg/dL Normal 0.2-1.3 [facility] Comment on above: Order Comment: Speci men Type: BLOOD SPECIMEN Ordering Facility: [facility] Address: [address] [place] [address] Performed By: #### 2 4321-2 #### [facility] CLIA [id number] [address] Bilirubin.conjugated [Mass/Vol] mg/dL Normal <0.2 [facility] Comment on above: Order Comment: Speci men Type: BLOOD SPECIMEN Ordering Facility: [facility] Address: [address] [place] [address] Performed By: #### 2 4321-2 #### [facility] CLIA [id number] [address] [place] [address] [place] Protein [Mass/Vol] 6.7 g/dL Normal 6.3-8.0 [facility] Comment on above: Order Comment: Speci men Type: BLOOD SPECIMEN Ordering Facility: [facility] Address: [address] [place] [address] Performed By: #### 2 4321-2 #### [facility] CLIA [id number] [address] [place] CBC W Auto Differential pane l (Bld)on 10-18-2023 Basophils (Bld) [#/Vol] 0.05 10*3/uL Normal <0.11 [facility] Comment on above: Order Comment: Speci men Type: BLOOD SPECIMEN Ordering Facility: [facility] Address: [address] [place] [address] Performed By: #### 2 4321-2 #### [facility] CLIA [id number] [address] [place] Basophils/100 WBC (Bld) 0.6 % Normal [facility] Comment on above: Order Comment: Speci men Type: BLOOD SPECIMEN Ordering Facility: [facility] Address: [address] [place] [address] Performed By: #### 2 4321-2 #### [facility] CLIA [id number] [address] Differential cell count method Nom (Bld) Auto Normal [facility] Comment on above: Order Comment: Speci men Type: BLOOD SPECIMEN Ordering Facility: [facility] Address: [address] [place] [address] Performed By: #### 2 4321-2 #### [facility] CLIA [id number] 1 [place] [address] [place] Eosinophils (Bld) [#/Vol] 0.10 10*3/uL Normal <0.46 [facility] Comment on above: Order Comment: Speci men Type: BLOOD SPECIMEN Ordering Facility: [facility] Address: [address] [place] [address] Performed By: #### 2 4321-2 #### [facility] CLIA [id number] [address] [place] Eosinophils/100 WBC (Bld) 1.2 % Normal [facility] Comment on above: Order Comment: Speci men Type: BLOOD SPECIMEN Ordering Facility: [facility] Address: [address] [place] [address] Performed By: #### 2 4321-2 #### [facility] CLIA [id number] [address] [place] Erythrocyte distribution width (RBC) [Ratio] 16.2 % High 11.5-15.0 [facility] Comment on above: Order Comment: Speci men Type: BLOOD SPECIMEN Ordering Facility: [facility] Address: [address] [place] [address] Performed By: #### 2 4321-2 #### [facility] CLIA [id number] [address] [place] Hematocrit (Bld) [Volume fraction] 36.5 % Normal 36.0-46.0 [facility] Comment on above: Order Comment: Speci men Type: BLOOD SPECIMEN Ordering Facility: [facility] Address: [address] [place] [address] Performed By: #### 2 4321-2 #### [facility] CLIA [id number] [address] [place] Hemoglobin (Bld) [Mass/Vol] 11.6 g/dL Normal 11.5-15.5 [facility] Comment on above: Order Comment: Speci men Type: BLOOD SPECIMEN Ordering Facility: [facility] Address: [address] [place] [address] Performed By: #### 2 4321-2 #### [facility] CLIA [id number] [address] [place] Immature granulocytes (Bld) [#/Vol] 0.03 10*3/uL Normal <0.10 [facility] Comment on above: Order Comment: Speci men Type: BLOOD SPECIMEN Ordering Facility: [facility] Address: [address] [place] [address] Performed By: #### 2 4321-2 #### [facility] CLIA [id number] [address] Immature granulocytes/100 WBC (Bld) 0.4 % Normal [facility] Comment on above: Order Comment: Speci men Type: BLOOD SPECIMEN Ordering Facility: [facility] Address: [address] [place] [address] Performed By: #### 2 4321-2 #### [facility] CLIA [id number] [address] [place] Lymphocytes (Bld) [#/Vol] 1.82 10*3/uL Normal 1.00-4.00 [facility] Comment on above: Order Comment: Speci men Type: BLOOD SPECIMEN Ordering Facility: [facility] Address: [address] [place] [address] Performed By: #### 2 1-2 #### [facility] CLIA [id number] [address] Lymphocytes/100 WBC (Bld) 22.3 % Normal [facility] Comment on above: Order Comment: Speci men Type: BLOOD SPECIMEN Ordering Facility: [facility] Address: [address] [place] [address] Performed By: #### 2 4321-2 #### [facility] CLIA [id number] [address] [place] MCH (RBC) [Entitic mass] 27.3 pg Normal 26.0-34.0 [facility] Comment on above: Order Comment: Speci men Type: BLOOD SPECIMEN Ordering Facility: [facility] Address: [address] [place] [address] Performed By: #### 2 4321-2 #### [facility] CLIA [id number] [address] [place] MCHC (RBC) [Mass/Vol] 31.8 g/dL Normal 30.5-36.0 [facility] Comment on above: Order Comment: Speci men Type: BLOOD SPECIMEN Ordering Facility: [facility] Address: [address] [place] [address] Performed By: #### 2 4321-2 #### [facility] CLIA [id number] [address] [place] MCV (RBC) [Entitic vol] 85.9 fL Normal 80.0-100.0 [facility] Comment on above: Order Comment: Speci men Type: BLOOD SPECIMEN Ordering Facility: [facility] Address: [address] [place] [address] Performed By: #### 2 4321-2 #### [facility] CLIA [id number] [address] [place] Monocytes (Bld) [#/Vol] 0.78 10*3/uL Normal <0.87 [facility] Comment on above: Order Comment: Speci men Type: BLOOD SPECIMEN Ordering Facility: [facility] Address: [address] [place] [address] Performed By: #### 2 1-2 #### [facility] CLIA [id number] [address] [place] Monocytes/100 WBC (Bld) 9.6 % Normal [facility] Comment on above: Order Comment: Speci men Type: BLOOD SPECIMEN Ordering Facility: [facility] Address: [address] [place] [address] Performed By: #### 2 4321-2 #### [facility] CLIA [id number] [address] [place] Neutrophils (Bld) [#/Vol] 5.38 10*3/uL Normal 1.45-7.50 [facility] Comment on above: Order Comment: Speci men Type: BLOOD SPECIMEN Ordering Facility: [facility] Address: [address] [place] [address] Performed By: #### 2 4321-2 #### [facility] CLIA [id number] [address] [place] Neutrophils/100 WBC (Bld) 65.9 % Normal [facility] Comment on above: Order Comment: Speci men Type: BLOOD SPECIMEN Ordering Facility: [facility] Address: [address] [place] [address] Performed By: #### 2 4321-2 #### [facility] CLIA [id number] [address] Nucleated RBC (Bld) [#/Vol] 10*3/uL Normal <0.01 [facility] Comment on above: Order Comment: Speci men Type: BLOOD SPECIMEN Ordering Facility: [facility] Address: [address] [place] [address] Performed By: #### 2 1-2 #### [facility] CLIA [id number] [address] Nucleated RBC/100 WBC (Bld) [Ratio] 0.0 /100 WBC Normal [facility] Comment on above: Order Comment: Speci men Type: BLOOD SPECIMEN Ordering Facility: [facility] Address: [address] [place] [address] Performed By: #### 2 1-2 #### [facility] CLIA [id number] [address] [place] Platelet mean volume (Bld) [Entitic vol] 9.1 fL Normal 9.0-12.7 [facility] Comment on above: Order Comment: Speci men Type: BLOOD SPECIMEN Ordering Facility: [facility] Address: [address] [place] [address] Performed By: #### 2 1-2 #### [facility] CLIA [id number] [address] [place] Platelets (Bld) [#/Vol] 242 10*3/uL Normal 150-400 [facility] Comment on above: Order Comment: Speci men Type: BLOOD SPECIMEN Ordering Facility: [facility] Address: [address] [place] [address] Performed By: #### 2 1-2 #### [facility] CLIA [id number] [address] OF [facility] RBC (Bld) [#/Vol] 4.25 10*6/uL Normal 3.90-5.20 [facility] Comment on above: Order Comment: Speci men Type: BLOOD SPECIMEN Ordering Facility: [facility] Address: [address] [place] [address] Performed By: #### 2 4321-2 #### [facility] CLIA [id number] [address] OF [facility] WBC (Bld) [#/Vol] 8.16 10*3/uL Normal 3.70-11.00 [facility] Comment on above: Order Comment: Speckam tony Type: BLOOD SPECIMEN Ordering Facility: [facility] Address: [address] [place] [address] Performed By: #### 2 4321-2 #### [facility] CLIA [id number] [address] OF [facility] Adri[id number] ----- TRENTON JACKSON ([id number]) 1970 [facility] Date Time Provider Department [facility] During your visit today, we recorded the following information about you: Tenzin Resist Coater Developer Ethel Shah 10/18/2023 11:46 AM Signed Returned Sara's call from [facility] regarding [place] - last nurse we spoke to (Bryant), they were to take patient to [place] [facility] and follow up with local ortho md. Called and spoke to Cindi - when order was given to Bryant in regards to giving an antibiotic AND taking to [place] ED for surgical consult if no improvement - there was no follow through on that end. The jail physician did give an antibiotic 09/27/23 - 10/04/23 and nothing was done after that until Cindi saw Trenton on 10/15/23 AND sent her to [place] ED. The ED gave her pain medication and sent her back to the facility. Cindi said Trenton has had some recent labs AND rose mary fax them to us, I did give the fax number to her. The lower incision is red and warm as well. Appointment scheduled for Sunday10/23/23 at 1:15pm w/PA Gaidel [place]. Sending to Dr. May for review Thank you Ethel Dave Resist Coater Developer [facility] [place] Ethel Shah 10/18/2023 3:03 PM Signed Spoke to Cindi - she is going to [facility] to arrange for transport. She did state that sometimes they can garbage pick up man in 15 minutes but sometimes it can take hours. Cindi does have direct phone # and knows I am in office until 530pm should she need to reach the office, after that to call the main office phone #. Also verified [facility] ED address. Thank you Ethel Dave [place] [employer] Allergies As of Date: 10/18/2023 Noted Allergy Reaction LATEX 01/18/2011 9 - Itching Comments: Red and dry cracking skin Date Reviewed: 09/05/2023 Reviewed by: Arminda Murillo, CHAYITO - Fully Assessed Reason for Visit: returned jail call [Other] Patient Update [1234] Prescriptions as [...] all medications X 4 days per her [id number]. Problem List As Of Date 10/18/2023 Noted Resolved Abdominal pain, other specified site [R10.9] 10/23/2012 Essential hypertension [I10] 02/20/2017 Pericardial cyst [Q24.8] 02/20/2017 Pericardial effusion [I31.39] 02/20/2017 Depression [F32.A] 02/20/2017 Anxiety [F41.9] 02/20/2017 [employer]sparkle (more content not included)... Normal [facility] CONSULTon 10-18-2023 CONSULT HNO ID: [id number] Author: DIYA MAY MD Service: Orthopaedic Surgery [...] HPI: 53 year old female presented to [facility] due to concern for an infection [...] 3 dose (more content not included)... Normal [facility] Comprehensive metabolic 2000 panelon 10-18-2023 Albumin [Mass/Vol] 3.5 g/dL Low 3.9-4.9 [facility] Comment on above: Order Comment: Speci men Type: BLOOD SPECIMEN Ordering Facility: [facility] Address: [address] [place] [address] Performed By: #### 2 4323-8, 52981-8 #### [facility] CLIA [id number] [address] [place] [id number] [place] ALP [Catalytic activity/Vol] 135 U/L High 34-123 [facility] Comment on above: Order Comment: Speci men Type: BLOOD SPECIMEN Ordering Facility: [facility] Address: [address] [place] [address] Performed By: #### 2 8, #### [facility] CLIA [id number] [address] ALT With P-5'-P [Catalytic activity/Vol] Normal [facility] Comment on above: Order Comment: Speci men Type: BLOOD SPECIMEN Ordering Facility: [facility] Address: [address] [place] [address] Result Comment: Unab le to assay due to interference from hemolysis. Suggest reorder as clinically indicated. Performed By: #### 2 4322-8, #### [facility] CLIA [id number] [address] Anion gap [Moles/Vol] 14 mmol/L Normal 9-18 [facility] Comment on above: Order Comment: Speci men Type: BLOOD SPECIMEN Ordering Facility: [facility] Address: [address] [place] [address] Performed By: #### 2 4323-01, #### [facility] CLIA [id number] [address] AST With P-5'-P [Catalytic activity/Vol] Normal [facility] Comment on above: Order Comment: Speci men Type: BLOOD SPECIMEN Ordering Facility: [facility] Address: [address] [place] [address] Result Comment: Unab le to assay due to interference from hemolysis. Suggest reorder as clinically indicated. Performed By: #### 2 4323-01, #### [facility] CLIA [id number] [address] [place] Bilirubin [Mass/Vol] 0.5 mg/dL Normal 0.2-1.3 [facility] Comment on above: Order Comment: Speci men Type: BLOOD SPECIMEN Ordering Facility: [facility] Address: [address] [place] [address] Performed By: #### 2 4323-01, #### [facility] CLIA [id number] [address] [place] [address] [place] Calcium [Mass/Vol] 9.0 mg/dL Normal 8.5-10.2 [facility] Comment on above: Order Comment: Speci men Type: BLOOD SPECIMEN Ordering Facility: [facility] Address: [address] [place] [address] Performed By: #### 2 4323-01, #### [facility] CLIA [id number] [address] [place] [address] [place] Chloride [Moles/Vol] 98 mmol/L Normal 97-105 [facility] Comment on above: Order Comment: Speci men Type: BLOOD SPECIMEN Ordering Facility: [facility] Address: [address] [place] [address] Performed By: #### 2 4323-01, #### [facility] CLIA [id number] [address] [place] [address] [place] CO2 [Moles/Vol] 24 mmol/L Normal 22-30 [facility] Comment on above: Order Comment: Speci men Type: BLOOD SPECIMEN Ordering Facility: [facility] Address: [address] [place] [address] Performed By: #### 2 4323-01, #### [facility] CLIA [id number] [address] [place] [address] [place] Creatinine [Mass/Vol] 1.61 mg/dL High 0.58-0.96 [facility] Comment on above: Order Comment: Speci men Type: BLOOD SPECIMEN Ordering Facility: [facility] Address: [address] [place] [address] Performed By: #### 2 4323-01, #### [facility] CLIA [id number] [address] [place] [address] [place] Creatinine and Glomerular filtration rate.predicted panel (S/P/Bld) 38 mL/min/1.73m??? Low >=60 [facility] Comment on above: Order Comment: Radha tony Type: BLOOD SPECIMEN Ordering Facility: [facility] Address: [address] [place] [address] Result Comment: Crissy mated Glomerular Filtration Rate [...] reflect actual GFR. Performed By: #### 2 4323-8, 25467-4 #### [facility] CLIA [id number] [address] [place] [address] [place] Glucose [Mass/Vol] 160 mg/dL High 74-99 [facility] Comment on above: Order Comment: Radha tony Type: BLOOD SPECIMEN Ordering Facility: [facility] Address: [address] [place] [address] Result Comment: The [place] [employer] (ADA) provides guidance for cutoff [...] Standards of Medical Care in Diabetes 2016, [place] [employer]. Diabetes Care. 2016.39(Suppl 1). Performed By: #### 2 4323-8, 11834-4 #### [facility] CLIA [id number] [address] [place] [address] [place] Potassium [Moles/Vol] Normal [facility] Comment on above: Order Comment: Radha tony Type: BLOOD SPECIMEN Ordering Facility: [facility] Address: [address] [place] [address] Result Comment: Unab le to assay due to interference from hemolysis. Suggest reorder as clinically indicated. Performed By: #### 2 4322-8, #### [facility] CLIA [id number] [address] STATES OF [facility] Protein [Mass/Vol] 6.9 g/dL Normal 6.3-8.0 [facility] Comment on above: Order Comment: Speci men Type: BLOOD SPECIMEN Ordering Facility: [facility] Address: [address] [place] [address] Performed By: #### 2 8, #### [facility] CLIA [id number] [address] Sodium [Moles/Vol] 136 mmol/L Normal 136-144 [facility] Comment on above: Order Comment: Speci men Type: BLOOD SPECIMEN Ordering Facility: [facility] Address: [address] [place] [address] Performed By: #### 2 4323-01, #### [facility] CLIA [id number] [address] STATES [facility] Urea nitrogen [Mass/Vol] 51 mg/dL High 7-21 [facility] Comment on above: Order Comment: Speci men Type: BLOOD SPECIMEN Ordering Facility: [facility] Address: [address] [place] [address] Performed By: #### 2 4323-01, #### [facility] CLIA [id number] [address] [place] ED NOTEon 10-18-2023 ED NOTE HNO ID: [id number] Author: JIMY CHING RN Service: Emergency Medicine Author Type: Registered Nurse Type: ED Notes Filed: 10/18/2023 19:40 Note Text: Xray at bedside Normal [facility] ED NOTE HNO ID: [id number] Author: ERVIN RENO RN Service: Emergency Medicine Author Type: Registered Nurse Type: ED Notes Filed: 10/18/2023 18:56 Note Text: XR notified pt is ready for ordered imaging Normal [facility] ED NOTE HNO ID: [id number] Author: ERVIN RENO RN Service: Emergency Medicine Author Type: Registered Nurse Type: ED Notes Filed: 10/18/2023 18:32 Note Text: Patient's identity verified by patient stating name, Patient's identity verified by patient stating date, Patient's identity verified by hospital ID jonah. Patient placed on court monitor, patient placed on non-invasive blood pressure monitor, patient placed on continuous pulse oximetry. Alarms set and on, patient tolerating monitoring. Normal [facility] ED NOTE HNO ID: [id number] Author: GARRISON VAUGHAN, CHAYITO Service: ? Author Type: Registered Nurse Type: ED Notes Filed: 10/18/2023 18:24 Note Text: Bed: [facility] Expected date: Expected time: Means of arrival: Comments: ONLY Normal [facility] ED PROV NOTEon 10-18-2023 ED PROV NOTE HNO ID: [id number] Author: MARIA E PORTILLO MD Service: Emergency [...] had any recent fevers [facility] denies any other concerns. The patient denies [...] disposition details MARIA E PORTILLO 10/19/23 0123 Normal [facility] ED PROV NOTE HNO ID: [id number] Author: MARIA E PORTILLO MD Service: Emergency [...] Hip Pain: Pt arrives via EMS from [facility] for c/o R hip pain. Pt had a fall on and was transferred to [facility] for surgery from [place]. Pt has been having pain since the surgery, worsening recently. Pt endorses ambulation with walker in PT/ OT. Pt AANDO3. 53-year-old female presenting from [facility] for complaint of right hip pain. Patient [...] Normal range (more content not included)... Normal [facility] HISTORY PHYSICALon 05-16-202 4 HISTORY PHYSICAL HNO ID: [id number] Author: JUANCARLOS GRAHAM APRN.CNP Service: Hospital Medicine Author Type: Nurse Practitioner Type: H&P Filed: 10/19/2023 01:52 Note Text: [facility] HISTORY AND PHYSICAL EXAM SERVICE DATE: 10/19/2023 SERVICE TIME: 0152 Primary Care Physician: Nathaly [facility] NIGHT AND WEEKEND COVERAGE: Unit ext: [phone] Pager [phone] Subjective CHIEF COMPLAINT: Right hip pain HPI: [...] obtained by others. Upon arrival to the [facility], patient is complaining of right lateral hip [...] 1 Bottle, Rfl: 2 insulin needles, DISPOSABLE, (ICS MobileFINE PENTIPS) 31 gauge x 10/17 ndle, Use with insulin in (more content not included)... Normal [facility] Magnesium SerPl-mCncon 10-17 Magnesium [Mass/Vol] 2.2 mg/dL Normal 1.7-2.3 [facility] Comment on above: Order Comment: Speci men Type: BLOOD SPECIMEN Ordering Facility: [facility] Address: [address] [place] [address] Performed By: #### 2 4323-8, 60448-7 #### [facility] CLIA [id number] [address] POTASSIUMon 10-18-2023 Potassium [Moles/Vol] 4.0 mmol/L Normal 3.7-5.1 [facility] Comment on above: Order Comment: Speci men Type: BLOOD SPECIMEN Ordering Facility: [facility] Address: [address] [place] [address] Performed By: #### 5 8410-2 #### [facility] CLIA [id number] [address] [place] XR HIP 3V [...] Hardware is intact. Vascular calcifications are present. Control Tower Operator: GEORGE Transcribe Date/Time: Oct 18 2023 8:09P Dictated by : CLOVER LINTON MD This examination was interpreted and the report reviewed and electronically signed by: CLOVER LINTON MD on Oct 18 2023 8:13PM EST [id number] Normal [facility] Basophil percentageOrdered B y: Kaylie Trujillo on 10-12-2023 Chloride [Moles/Vol] 104 mmol/L 98-107 [facility] Glucose [Mass/Vol] 112 mg/dL 74-106 [facility] Comment on above: Fasting Glucose resu lt from 100 to 125 mg/dL suggests IMPAIRED HOMEOSTASIS per A.D.A. criteria. Potassium [Moles/Vol] 4.5 mmol/L 3.5-5.1 [facility] Sodium [Moles/Vol] 138 mmol/L 136-145 [facility] Laboratory - Chemistry and C hemistry - challengeOrdered By: Kaylie Trujillo on 10-12-2023 CO2 [Moles/Vol] 31.0 mmol/L 21.0-32.0 [facility] Urea nitrogen/Creatinine [Mass ratio] 34.1 mg/mg 10-20 [facility] No Panel InformationOrdered By: Kaylie Trujillo on 10-12-2023 Estimated GFR (MDRD) Amer 112 mL/min >60 [facility] Comment on above: GFR Calc Estimated GFR (MDRD) Non-Af Amer 93 mL/min >60 [facility] Comment on above: Non- GFR Calc Serum or plasma calcium xiomara urement (mass/volume)Ordered By: Kaylie Trujillo on 10-12-2023 Calcium [Mass/Vol] 8.7 mg/dL 8.5-10.1 [facility] Serum or plasma creatinine m easurement (mass/volume)Ordered By: Kaylie Trujillo on 10-12-2023 Creatinine [Mass/Vol] 0.70 mg/dL 0.55-1.02 [facility] Comment on above: The validity of the calculated GFR & GFRAA in patients over 70 years has not been determined. Clinical correlation is essential. Serum or plasma urea nitroge n measurement (mass/volume)Ordered By: Kaylie Trujillo on 10-12-2023 Urea nitrogen [Mass/Vol] 24 mg/dL 7-18 [facility] Thin prep Papanicolaou smear with manual screeningOrdered By: Kaylie Trujillo on 10-12-2023 Thin prep Papanicolaou smear with manual screening 3 5-15 [facility] CNPNon 10-09-2023 CNPN Telephone (AGPOB1) ----- TRENTON JACKSON ([id number]) 1970 [facility] Date Time Provider Department 10/09/23 DIYA MAY [id number] During your visit today, we recorded the following information about you: Tenzin Resist Coater Developer Ethel Shah 10/09/2023 10:51 AM Signed ----- Message from Pauly Heredia sent at 10/09/2023 9:45 AM EDT ----- Regarding: Orthopedics/Vrabec/Hip/Po st-Op Within 90-Day Period Contact: Orthopedics/Vrabec/Hip/Po st-Op Within 90-Day Period Patient has been identified by name and Date of (Y/N): y Patient: [place]on Ahuja Rosemarygabo Date of : 1970 Previous Provider Seen: [...] calling if other than patient: Bryant @ [facility] Return call to if other than patient: same Best contact number: [phone] Thank you, Pauly Heredia October 09, 2023 9:46 AM Giaconj Rosholt AlyssaEthel Vikram 10/17/2023 4:44 PM Signed Left 2 messages Allergies As of Date: 10/09/2023 Noted Allergy Reaction LATEX 01/18/2011 9 - Itching Comments: Red and dry cracking skin Date Reviewed: 09/05/2023 Reviewed by: Arminda Murillo RN - Fully Assessed Prescriptions as of 10/17/2023 [...] all medications X 4 days per her [id number]. Problem List As Of Date 10/09/2023 Noted [...] diabetes mellitus (more content not included)... Normal [facility] Absolute lymphocyte countOrd ered By: Kaylie Trujillo on 10-08-2023 Lymphocytes Auto (Unsp spec) [#/Vol] 1.68 10*3/uL 0.83-4.51 [facility] Automated lymphocyte count a s percentage of total leukocytesOrdered By: Kaylie Trujillo on 10-08-2023 Lymphocytes/100 WBC Auto (Unsp spec) 19.2 % 19-41 [facility] Basophil percentageOrdered B y: Kaylie Trujillo on 10-08-2023 Basophils/100 WBC (Bld) 0.7 % 0-1 [facility] Chloride [Moles/Vol] 108 mmol/L 98-107 [facility] Eosinophils/100 WBC (Bld) 1.4 % 0-5 [facility] Glucose [Mass/Vol] 67 mg/dL 74-106 [facility] Hemoglobin (Bld) [Mass/Vol] 12.1 g/dL 12.0-15.0 [facility] Monocytes/100 WBC (Bld) 7.8 % 0-10 [facility] Neutrophils (Bld) [#/Vol] 6.2 10*3/uL 2.0-7.7 [facility] Neutrophils/100 WBC (Bld) 70.6 % 47-70 [facility] Potassium [Moles/Vol] 5.6 mmol/L 3.5-5.1 [facility] Sodium [Moles/Vol] 139 mmol/L 136-145 [facility] WBC (Bld) [#/Vol] 8.7 10*3/uL 4.4-11.0 [facility] Determination of erythrocyte mean corpuscular volume (MCV)Ordered By: Kaylie Trujillo on 10-08-2023 MCV (RBC) [Entitic vol] 86.7 fL 81-99 [facility] Erythrocyte distribution wid th ratioOrdered By: Kaylie Trujillo on 10-08-2023 Erythrocyte distribution width (RBC) [Ratio] 16.6 % 11.6-14.6 [facility] Erythrocyte distribution wid th standard deviationOrdered By: Kaylieoskar Trujillo on 10-08-2023 Erythrocyte distribution width (RBC) [Entitic vol] 52.3 fL 35.1-43.9 [facility] Hematocrit Auto (Bld) [Volum e fraction]Ordered By: Kaylie Trujillo on 10-08-2023 Hematocrit (Bld) [Volume fraction] 39.6 % 37-47 [facility] Immature granulocytes/100 WB C Auto (Bld)Ordered By: Kaylieoskar Trujillo on 10-08-2023 Immature granulocytes/100 WBC (Bld) 0.300 % 0.0-0.9 [facility] Comment on above: IG% - Immature Granu locytes (promyelocytes, myelocytes and metamyelocytes) > 1% indicates that a LEFT SHIFT is Present. Laboratory - Chemistry and C hemistry - challengeOrdered By: Kaylieoskar Trujillo on 10-08-2023 CO2 [Moles/Vol] 27.0 mmol/L 21.0-32.0 [facility] Magnesium [Mass/Vol] 2.5 mg/dL 1.6-2.6 [facility] Urea nitrogen/Creatinine [Mass ratio] 27.6 mg/mg 10-20 [facility] Laboratory - Hematology and Cell countsOrdered By: Kaylie Trujillo on 10-08-2023 MCH (RBC) [Entitic mass] 26.5 pg 27.0-32.0 [facility] MCHC (RBC) [Mass/Vol] 30.6 g/dL 32-36 [facility] Nucleated RBC/100 WBC (Bld) [Ratio] 0 % 0-5 [facility] Platelet mean volume (Bld) [Entitic vol] 9.3 fL 6.2-12.0 [facility] Platelets (Bld) [#/Vol] 243 10*3/uL 150-450 [facility] No Panel InformationOrdered By: Kaylie Trujillo on 10-08-2023 Estimated GFR (MDRD) Amer 102 mL/min >60 [facility] Comment on above: GFR Calc Estimated GFR (MDRD) Non-Af Amer 85 mL/min >60 [facility] Comment on above: Non- GFR Calc RBC Auto (Bld) [#/Vol]Ordere d By: Kaylie Trujillo on 10-08-2023 RBC (Bld) [#/Vol] 4.57 10*6/uL 4.2-5.4 [facility] Serum or plasma calcium xiomara urement (mass/volume)Ordered By: Kaylie Trujillo on 10-08-2023 Calcium [Mass/Vol] 9.3 mg/dL 8.5-10.1 [facility] Serum or plasma creatinine m easurement (mass/volume)Ordered By: Kaylie Trujillo on 10-08-2023 Creatinine [Mass/Vol] 0.76 mg/dL 0.55-1.02 [facility] Comment on above: The validity of the calculated GFR & GFRAA in patients over 70 years has not been determined. Clinical correlation is essential. Serum or plasma urea nitroge n measurement (mass/volume)Ordered By: Kaylie Trujillo on 10-08-2023 Urea nitrogen [Mass/Vol] 21 mg/dL 7-18 [facility] Thin prep Papanicolaou smear with manual screeningOrdered By: Kaylie Trujillo on 10-08-2023 Thin prep Papanicolaou smear with manual screening 4 5-15 [facility] CNPNon 10-04-2023 [place] Telephone (AGPOB1) ----- TRENTON JACKSON ([id number]) 1970 F [place] Date Time Provider Department 10/04/23 DIYA MAY During your visit today, we recorded the following information about you: Tenzin Resist Co[employer] Developer Ethel Shah 10/04/2023 2:40 PM Signed ----- Message from [...] which facility was the patient seen at: [facility] Was an appointment scheduled (Y/N): no-unable to schedule per tool Person calling if other than patient: Bryant([facility]) Return call to if other than patient: Bryant Best contact number: [phone] Thank you, Melany Simon October 03, 2023 1:23 PM Arlettenj [employer] Co[employer] Developer Ethel Shah 10/08/2023 3:47 PM Signed Left message for Bryant to get an update on [place]. Last message to her was instructions from Dr. May regarding giving her antibiotics, taking her to [place] emergency department if no improvements for a surgical consult. Thank you Ethel Dave Resist Coater Developer Ppg Allergies As of Date: 10/04/2023 Noted [...] all medications X 4 days per her [id number]. Problem List As Of Date 10/04/2023 Noted Resolved Abdominal pain, other specified site [R10.9] 10/23/2012 Essential hypertension [I10] 02/20/2017 Pericardial cyst [Q24.8] 02/20/2017 Pericardial effusion [I31.39] 02/20/2017 Depression [F32.A] 02/20/2017 Anxiety [F41.9] 02/20/2017 Right-sided low back pain with right-sided scia*02/20/2017 Type 2 diabetes mellitus with complication, w (more content not included)... Normal [facility] CNPNon 10-02-2023 [facility] Telephone (AGPOB1) ----- TRENTON JACKSON ([id number]) 1970 [facility] Date Time Provider Department 10/02/23 DIYA MAY [facility] During your visit today, we recorded the following information about you: Tenzin Resist Coater Developer Ethel Shah 10/02/2023 12:11 PM Signed ----- [...] Date of : 1970 Previous Provider Seen: lalo Body Part(s) Identified: r hip Diagnosis/Reason For Visit: post op Reason for the call/escalation: pt would like to schedule post op care center calling on behave of pt If reason for call/escalation is discharge from ED/ER or Hospital, which facility was the patient seen at: na Was an appointment scheduled (Y/N): n Person calling if other than patient: BRYANT [facility] Return call to if other than patient: bryant Best contact number: [phone] Thank you, Agata Das October 02, 2023 11:16 AM Tenzin Rosholt Ethel Shah 10/03/2023 11:29 AM Signed Left message for Bryant - Dr. May does not want to schedule a follow up appointment at this time. He would like an update of her wound since she has started the antibiotic. If it has not changed, gotten better or is worse - he would like her taken to the [place] Emergency [facility] for a surgical consult. Left my direct phone number so Bryant can call to let me know status. Thank you Ethel Dave Resist Coater Developer Ppg Allergies As of Date: 10/02/2023 Noted Allergy Reaction LATEX 01/18/2011 9 - Itching Comments: Red and dry cracking skin Date Reviewed: 09/05/2023 Reviewed by: Arminda Murillo RN - Fully Assessed Reason for Visit: Contact Center Call [[id number]] Patient Update [1234] PHYSICIAN INSTRUCTIONS [Other] Prescriptions as of 10/03/2023 [...] all medications X 4 days per her [id number]. Problem List As Of Date 10/02/2023 Noted Resolved Abdominal pain, other specified site [R10.9] 10/23/2012 Essential hypertension [I10] 02/20/2017 Pericardial cyst [Q24.8] 02/20/2017 Pericardial effusion [I31.39] 02/20 (more content not included)... Normal [facility] Absolute lymphocyte countOrd ered By: Kaylie Trujillo on 10-01-2023 Lymphocytes Auto (Unsp spec) [#/Vol] 1.59 10*3/uL 0.83-4.51 [facility] Automated lymphocyte count a s percentage of total leukocytesOrdered By: Kaylie Trujillo on 10-01-2023 Lymphocytes/100 WBC Auto (Unsp spec) 24.4 % 19-41 [facility] Basophil percentageOrdered B y: Kaylie Trujillo on 10-01-2023 Basophils/100 WBC (Bld) 1.1 % 0-1 [facility] Chloride [Moles/Vol] 108 mmol/L 98-107 [facility] Eosinophils/100 WBC (Bld) 2.6 % 0-5 [facility] Glucose [Mass/Vol] 123 mg/dL 74-106 [facility] Comment on above: Fasting Glucose resu lt from 100 to 125 mg/dL suggests IMPAIRED HOMEOSTASIS per A.D.A. criteria. Hemoglobin (Bld) [Mass/Vol] 11.7 g/dL 12.0-15.0 [facility] Monocytes/100 WBC (Bld) 8.8 % 0-10 [facility] Neutrophils (Bld) [#/Vol] 4.1 10*3/uL 2.0-7.7 [facility] Neutrophils/100 WBC (Bld) 62.6 % 47-70 [facility] Potassium [Moles/Vol] 5.4 mmol/L 3.5-5.1 [facility] Sodium [Moles/Vol] 138 mmol/L 136-145 [facility] WBC (Bld) [#/Vol] 6.5 10*3/uL 4.4-11.0 [facility] CNPNon 10-01-2023 CNPN Telephone (AGPOB1) ----- ROSEMARYTRENTON CALHOUN ([id number]) 1970 F [place] Date Time Provider Department 10/01/23 DIYA MAY During your visit today, we recorded the following information about you: Ethel Alonso 10/01/2023 10:38 AM Signed ----- Message from Diya May MD sent at 09/30/2023 1:53 PM EDT ----- Please get me an update on her status. Also, a new picture of the wound to review. Ethel Stapleton 10/01/2023 11:05 AM Signed Left message w/Clare. She will have Stephania call me when she is back on the floor with an update on Trenton. All Clare can say is that she knows Trenton is still on the antibiotics. Gave Clare my direct phone #. Thank you Ethel Shah Allergies As of Date: 10/01/2023 Noted Allergy Reaction LATEX 01/18/2011 9 - Itching Comments: Red and dry cracking skin Date Reviewed: 09/05/2023 Reviewed by: Arminda Murillo, RN - Fully Assessed Reason for Visit: [...] all medications X 4 days per her thmfun-02-7-2017. Problem List As Of Date 10/01/2023 Noted [...] Frailty [ (more content not included)... Normal [facility] Determination of erythrocyte mean corpuscular volume (MCV)Ordered By: Kaylie Trujillo on 10-01-2023 MCV (RBC) [Entitic vol] 86.3 fL 81-99 [facility] Erythrocyte distribution wid th ratioOrdered By: Kaylie Trujillo on 10-01-2023 Erythrocyte distribution width (RBC) [Ratio] 15.9 % 11.6-14.6 [facility] Erythrocyte distribution wid th standard deviationOrdered By: Kaylie Trujillo on 10-01-2023 Erythrocyte distribution width (RBC) [Entitic vol] 50.4 fL 35.1-43.9 [facility] Hematocrit Auto (Bld) [Volum e fraction]Ordered By: Kaylie Trujillo on 10-01-2023 Hematocrit (Bld) [Volume fraction] 37.8 % 37-47 [facility] Immature granulocytes/100 WB C Auto (Bld)Ordered By: Kaylie Trujillo on 10-01-2023 Immature granulocytes/100 WBC (Bld) 0.500 % 0.0-0.9 [facility] Comment on above: IG% - Immature Granu locytes (promyelocytes, myelocytes and metamyelocytes) > 1% indicates that a LEFT SHIFT is Present. Laboratory - Chemistry and C hemistry - challengeOrdered By: Kaylieoskar Trujillo on 10-01-2023 CO2 [Moles/Vol] 27.0 mmol/L 21.0-32.0 [facility] Magnesium [Mass/Vol] 2.6 mg/dL 1.6-2.6 [facility] Urea nitrogen/Creatinine [Mass ratio] 24.1 mg/mg 10-20 [facility] Laboratory - Hematology and Cell countsOrdered By: Kaylie Trujillo on 10-01-2023 MCH (RBC) [Entitic mass] 26.7 pg 27.0-32.0 [facility] MCHC (RBC) [Mass/Vol] 31.0 g/dL 32-36 [facility] Nucleated RBC/100 WBC (Bld) [Ratio] 0 % 0-5 [facility] Platelet mean volume (Bld) [Entitic vol] 9.1 fL 6.2-12.0 [facility] Platelets (Bld) [#/Vol] 218 10*3/uL 150-450 [facility] No Panel InformationOrdered By: Kaylie Trujillo on 10-01-2023 C-Reactive Protein Extended Range 10.40 mg/L 0.0-3.0 [facility] Comment on above: C-Reactive Protein ( CRP) provides useful information for thediagnosis, therapy and monitoring of inflammatory processesand associated diseases. For the evaluation of Relative Riskfor Cardiovascular Disease, a High Sensitivity CRP (HSCRP)should be ordered. Estimated GFR (MDRD) Amer 83 mL/min >60 [facility] Comment on above: GFR Calc Estimated GFR (MDRD) Non-Af Amer 69 mL/min >60 [facility] Comment on above: Non- GFR Calc RBC Auto (Bld) [#/Vol]Ordere d By: Kaylie Trujillo on 10-01-2023 RBC (Bld) [#/Vol] 4.38 10*6/uL 4.2-5.4 [facility] Serum or plasma calcium xiomara urement (mass/volume)Ordered By: Kaylie Trujillo on 10-01-2023 Calcium [Mass/Vol] 9.0 mg/dL 8.5-10.1 [facility] Serum or plasma creatinine m easurement (mass/volume)Ordered By: Kaylie Trujillo on 10-01-2023 Creatinine [Mass/Vol] 0.91 mg/dL 0.55-1.02 [facility] Comment on above: The validity of the calculated GFR & GFRAA in patients over 70 years has not been determined. Clinical correlation is essential. Serum or plasma trough vanco mycin levelOrdered By: Kaylie Trujillo on 10-01-2023 Vancomycin trough [Mass/Vol] 24.8 ug/mL 5.0-15.0 [facility] Comment on above: VANCOMYCIN STANDARED DRUG THERAPY TROUGH LEVEL: 5.0 - 15.0 mg/L VANCOMYCIN HIGH INTENSITY THERAPY TROUGH LEVEL: 15.0 - 20.0 mg/L High Intensity therapy recommended for serious lifethreatening infections include:- Kqqirertjg-Nqiesexvbcfz-Owrmlgssj (Ventilator/Healtcare Associated)-Sepsis PLEASE CONTACT PHARMACY SERVICES (#[id number]) FOR INTERPRETATIONOF RESULTS. Serum or plasma urea nitroge n measurement (mass/volume)Ordered By: Kaylie Trujillo on 10-01-2023 Urea nitrogen [Mass/Vol] 22 mg/dL 7-18 [facility] Thin prep Papanicolaou smear with manual screeningOrdered By: Kaylie Trujillo on 10-01-2023 Thin prep Papanicolaou smear with manual screening 3 5-15 [facility] Serum or plasma trough vanco mycin levelOrdered By: Kaylie Trujillo on 09-29-2023 Vancomycin trough [Mass/Vol] 17.3 ug/mL 5.0-15.0 [facility] Comment on above: VANCOMYCIN STANDARED DRUG THERAPY TROUGH LEVEL: 5.0 - 15.0 mg/L VANCOMYCIN HIGH INTENSITY THERAPY TROUGH LEVEL: 15.0 - 20.0 mg/L High Intensity therapy recommended for serious lifethreatening infections include:- Ripgnfapak-Qekeivysvtta-Udbrhqizm (Ventilator/Healtcare Associated)-Sepsis PLEASE CONTACT PHARMACY SERVICES (#[id number]) FOR INTERPRETATIONOF RESULTS. Adriana 09-27-2023 CNPN Telephone (AGPOB1) ----- TRENTON JACKSON ([id number]) 1970 [facility] Date Time Provider Department 09/27/23 DIYA MAY AGPOB1 During your visit today, [...] a local orthopedic since she is in [place]. Dr. Posadas - [phone] He would like if the facility could send a picture of the incision and to start her on Doxycycline 100mg BID. Called Stephania with instructions and Dr. Posadas' phone number. Thank you Ethel Dave [employer] Allergies As of Date: 09/27/2023 Noted Allergy Reaction LATEX 01/18/2011 9 - Itching Comments: Red and dry cracking skin Date Reviewed: 09/05/2023 Reviewed by: Arminda Murillo, CHAYITO - Fully Assessed Reason for Visit: Patient Question [1477] Abscess [1744] Prescriptions as of 09/27/2023 - [...] all medications X 4 days per her [id number]-26-9-2017. Problem List As Of Date 09/27/2023 Noted [...] Chronic systo (more content not included)... Normal [facility] Absolute lymphocyte countOrd ered By: Kaylie Trujillo on 09-24-2023 Lymphocytes Auto (Unsp spec) [#/Vol] 1.63 10*3/uL 0.83-4.51 [facility] Automated lymphocyte count a s percentage of total leukocytesOrdered By: Kaylie Trujillo on 09-24-2023 Lymphocytes/100 WBC Auto (Unsp spec) 21.3 % 19-41 [facility] Basophil percentageOrdered B y: Kaylie Trujillo on 09-24-2023 Basophils/100 WBC (Bld) 1.0 % 0-1 [facility] Chloride [Moles/Vol] 99 mmol/L 98-107 [facility] Eosinophils/100 WBC (Bld) 2.1 % 0-5 [facility] Glucose [Mass/Vol] 166 mg/dL 74-106 [facility] Comment on above: Fasting Glucose resu lt greater than or equal to 126 mg/dL suggests DIABETES MELLITUS per A.D.A. criteria. Hemoglobin (Bld) [Mass/Vol] 11.8 g/dL 12.0-15.0 [facility] Monocytes/100 WBC (Bld) 9.3 % 0-10 [facility] Neutrophils (Bld) [#/Vol] 5.1 10*3/uL 2.0-7.7 [facility] Neutrophils/100 WBC (Bld) 65.9 % 47-70 [facility] Potassium [Moles/Vol] 4.8 mmol/L 3.5-5.1 [facility] Sodium [Moles/Vol] 134 mmol/L 136-145 [facility] WBC (Bld) [#/Vol] 7.7 10*3/uL 4.4-11.0 [facility] Determination of erythrocyte mean corpuscular volume (MCV)Ordered By: Kaylie Trujillo on 09-24-2023 MCV (RBC) [Entitic vol] 84.3 fL 81-99 [facility] Erythrocyte distribution wid th ratioOrdered By: Kaylie Trujillo on 09-24-2023 Erythrocyte distribution width (RBC) [Ratio] 15.5 % 11.6-14.6 [facility] Erythrocyte distribution wid th standard deviationOrdered By: Kaylie Trujillo on 09-24-2023 Erythrocyte distribution width (RBC) [Entitic vol] 46.9 fL 35.1-43.9 [facility] Hematocrit Auto (Bld) [Volum e fraction]Ordered By: Kaylie Trujillo on 09-24-2023 Hematocrit (Bld) [Volume fraction] 37.7 % 37-47 [facility] Immature granulocytes/100 WB C Auto (Bld)Ordered By: Kaylie Trujillo on 09-24-2023 Immature granulocytes/100 WBC (Bld) 0.400 % 0.0-0.9 [facility] Comment on above: IG% - Immature Granu locytes (promyelocytes, myelocytes and metamyelocytes) > 1% indicates that a LEFT SHIFT is Present. Laboratory - Chemistry and C hemistry - challengeOrdered By: Kaylie Trujillo on 09-24-2023 CO2 [Moles/Vol] 29.0 mmol/L 21.0-32.0 [facility] Magnesium [Mass/Vol] 2.8 mg/dL 1.6-2.6 [facility] Urea nitrogen/Creatinine [Mass ratio] 38.8 mg/mg 10-20 [facility] Laboratory - Hematology and Cell countsOrdered By: Kaylie Trujillo on 09-24-2023 MCH (RBC) [Entitic mass] 26.4 pg 27.0-32.0 [facility] MCHC (RBC) [Mass/Vol] 31.3 g/dL 32-36 [facility] Nucleated RBC/100 WBC (Bld) [Ratio] 0 % 0-5 [facility] Platelet mean volume (Bld) [Entitic vol] 9.4 fL 6.2-12.0 [facility] Platelets (Bld) [#/Vol] 316 10*3/uL 150-450 [facility] No Panel InformationOrdered By: Kaylie Trujillo on 09-24-2023 Estimated GFR (MDRD) Amer 82 mL/min >60 [facility] Comment on above: GFR Calc Estimated GFR (MDRD) Non-Af Amer 67 mL/min >60 [facility] Comment on above: Non- GFR Calc RBC Auto (Bld) [#/Vol]Ordere d By: Kaylie Trujillo on 09-24-2023 RBC (Bld) [#/Vol] 4.47 10*6/uL 4.2-5.4 [facility] Serum or plasma calcium xiomara urement (mass/volume)Ordered By: Kaylie Trujillo on 09-24-2023 Calcium [Mass/Vol] 8.8 mg/dL 8.5-10.1 [facility] Serum or plasma creatinine m easurement (mass/volume)Ordered By: Kaylie Trujillo on 09-24-2023 Creatinine [Mass/Vol] 0.93 mg/dL 0.55-1.02 [facility] Comment on above: The validity of the calculated GFR & GFRAA in patients over 70 years has not been determined. Clinical correlation is essential. Serum or plasma thyroid stim ulating hormone (TSH) measurement (units/volume)Ordered By: Kaylie Trujillo on 09-24-2023 TSH Qn 6.61 uIU/mL 0.358-3.74 [facility] Serum or plasma urea nitroge n measurement (mass/volume)Ordered By: Kaylie Trujillo on 09-24-2023 Urea nitrogen [Mass/Vol] 36 mg/dL 7-18 [facility] Thin prep Papanicolaou smear with manual screeningOrdered By: Kaylie Trujillo on 09-24-2023 Thin prep Papanicolaou smear with manual screening 6 5-15 [facility] Absolute lymphocyte countOrd ered By: Kaylie Trujillo on 09-17-2023 Lymphocytes Auto (Unsp spec) [#/Vol] 1.47 10*3/uL 0.83-4.51 [facility] Automated lymphocyte count a s percentage of total leukocytesOrdered By: Kaylie Trujillo on 09-17-2023 Lymphocytes/100 WBC Auto (Unsp spec) 13.5 % 19-41 [facility] Basophil percentageOrdered B y: Kaylie Trujillo on 09-17-2023 Basophils/100 WBC (Bld) 0.9 % 0-1 [facility] Chloride [Moles/Vol] 96 mmol/L 98-107 [facility] Eosinophils/100 WBC (Bld) 1.3 % 0-5 [facility] Glucose [Mass/Vol] 134 mg/dL 74-106 [facility] Comment on above: Fasting Glucose resu lt greater than or equal to 126 mg/dL suggests DIABETES MELLITUS per A.D.A. criteria. Hemoglobin (Bld) [Mass/Vol] 12.8 g/dL 12.0-15.0 [facility] Monocytes/100 WBC (Bld) 5.7 % 0-10 [facility] Neutrophils (Bld) [#/Vol] 8.5 10*3/uL 2.0-7.7 [facility] Neutrophils/100 WBC (Bld) 78.0 % 47-70 [facility] Potassium [Moles/Vol] 4.5 mmol/L 3.5-5.1 [facility] Sodium [Moles/Vol] 133 mmol/L 136-145 [facility] WBC (Bld) [#/Vol] 10.9 10*3/uL 4.4-11.0 [facility] Determination of erythrocyte mean corpuscular volume (MCV)Ordered By: Kaylie Trujillo on 09-17-2023 MCV (RBC) [Entitic vol] 86.0 fL 81-99 [facility] Erythrocyte distribution wid th ratioOrdered By: Kaylie Trujillo on 09-17-2023 Erythrocyte distribution width (RBC) [Ratio] 15.2 % 11.6-14.6 [facility] Erythrocyte distribution wid th standard deviationOrdered By: Kaylie Trujillo on 09-17-2023 Erythrocyte distribution width (RBC) [Entitic vol] 46.5 fL 35.1-43.9 [facility] Hematocrit Auto (Bld) [Volum e fraction]Ordered By: Kaylie Trujillo on 09-17-2023 Hematocrit (Bld) [Volume fraction] 42.9 % 37-47 [facility] Immature granulocytes/100 WB C Auto (Bld)Ordered By: Kaylie Trujillo on 09-17-2023 Immature granulocytes/100 WBC (Bld) 0.600 % 0.0-0.9 [facility] Comment on above: IG% - Immature Granu locytes (promyelocytes, myelocytes and metamyelocytes) > 1% indicates that a LEFT SHIFT is Present. Laboratory - Chemistry and C hemistry - challengeOrdered By: Kaylie Trujillo on 09-17-2023 CO2 [Moles/Vol] 35.0 mmol/L 21.0-32.0 [facility] Magnesium [Mass/Vol] 2.9 mg/dL 1.6-2.6 [facility] Urea nitrogen/Creatinine [Mass ratio] 26.9 mg/mg 10-20 [facility] Laboratory - Hematology and Cell countsOrdered By: Kaylie Trujillo on 09-17-2023 MCH (RBC) [Entitic mass] 25.7 pg 27.0-32.0 [facility] MCHC (RBC) [Mass/Vol] 29.8 g/dL 32-36 [facility] Nucleated RBC/100 WBC (Bld) [Ratio] 0 % 0-5 [facility] Platelet mean volume (Bld) [Entitic vol] 9.6 fL 6.2-12.0 [facility] Platelets (Bld) [#/Vol] 399 10*3/uL 150-450 [facility] No Panel InformationOrdered By: Kaylie Trujillo on 09-17-2023 Estimated GFR (MDRD) Amer 61 mL/min >60 [facility] Comment on above: GFR Calc Estimated GFR (MDRD) Non-Af Amer 51 mL/min >60 [facility] Comment on above: Non- GFR Calc RBC Auto (Bld) [#/Vol]Ordere d By: Kaylie Trujillo on 09-17-2023 RBC (Bld) [#/Vol] 4.99 10*6/uL 4.2-5.4 [facility] Serum or plasma calcium xiomara urement (mass/volume)Ordered By: Kaylie Trujillo on 09-17-2023 Calcium [Mass/Vol] 9.2 mg/dL 8.5-10.1 [facility] Serum or plasma creatinine m easurement (mass/volume)Ordered By: Kaylie Trujillo on 09-17-2023 Creatinine [Mass/Vol] 1.19 mg/dL 0.55-1.02 [facility] Comment on above: The validity of the calculated GFR & GFRAA in patients over 70 years has not been determined. Clinical correlation is essential. Serum or plasma urea nitroge n measurement (mass/volume)Ordered By: Kaylie Trujillo on 09-17-2023 Urea nitrogen [Mass/Vol] 32 mg/dL 7-18 [facility] Thin prep Papanicolaou smear with manual screeningOrdered By: Kaylie Trujillo on 09-17-2023 Thin prep Papanicolaou smear with manual screening 2 - [facility] CNPNon 09-12-2023 CNPN Telephone (AGPOB1) ----- TRENTON JACKSON ([id number]) 1970 [facility] Date Time Provider Department 09/12/23 [facility] During your visit today, we recorded the following information about you: Tenzin Rosholt Ethel Shah 09/12/2023 9:24 AM Signed ----- Message from Evelyne Madsen sent at 09/11/2023 2:07 PM EDT ----- Regarding: [id number] follow up post op- hip fracture Subject Line Format: Orthopedics / [Provider Name or Open AND Body Part] / [Issue] Patient has been identified by name and Date of (Y/N): Y Patient: Trenton Jackson Date of : 1970 Previous Provider Seen: LALO Body Part(s) Identified: R HIP Diagnosis/Reason For Visit: ER FOLLOW UP POST OP Reason for the call/escalation: ER FOLLOW UP POST OP- HIP FRACTURE If reason for call/escalation is discharge from ED/ER or Hospital, which facility was the patient seen at: [facility] Was an appointment scheduled (Y/N): N/A Person calling if other than patient: REHAB [facility] Return call to if other than patient: REHAB Best contact number: [phone] Thank you, Evelyne Tena September 11, 2023 2:07 PM Tenzin Rosholt Alyssa, Ethel J 09/14/2023 2:38 PM Signed Left a message for Nurse Mgr Bryant Ruiz at the rehab facility ([phone]) that we do not need to schedule an appointment at this time but we would like to have a disc with an x-ray of Trenton's pelvis for review 09/17/23. Thank you Ethel Dave [employer] Allergies As of Date: 09/12/2023 Noted [...] all medications X 4 days per her iigpwg-24-2-2017. Problem List As Of Date 09/12/2023 Noted Resolved Abdominal pain, other specified site [R10.9] 10/23/2012 Essential hypertension [I10] 02/20/2017 Pericardial cyst [Q24.8] 02/20/2017 Pericardial effusion [I31.39] 02/20/2017 Depression [F32.A] 02/20/2017 Anxiety [F41.9] 02/20/2017 Right-sided low back pain with right-sided scia*02/20/2017 Type 2 diabetes mellitus with complication, wit*03/07/2017 Chest pain [R07.9] 11/30/2017 Dysl (more content not included)... Normal [facility] Absolute lymphocyte countOrd ered By: Kaylie Trujillo on 09-10-2023 Lymphocytes Auto (Unsp spec) [#/Vol] 1.61 10*3/uL 0.83-4.51 [facility] Automated lymphocyte count a s percentage of total leukocytesOrdered By: Kaylie Trujillo on 09-10-2023 Lymphocytes/100 WBC Auto (Unsp spec) 25.0 % 19-41 [facility] Basophil percentageOrdered B y: Kaylie Trujillo on 09-10-2023 Basophils/100 WBC (Bld) 0.8 % 0-1 [facility] Chloride [Moles/Vol] 97 mmol/L 98-107 [facility] Cholesterol [Mass/Vol] 140 mg/dL <200 [facility] Comment on above: <200 mg/dL Desirable 200-240 mg/dL Borderline >240 mg/dL High Risk Eosinophils/100 WBC (Bld) 0.8 % 0-5 [facility] Glucose [Mass/Vol] 150 mg/dL 74-106 [facility] Comment on above: Fasting Glucose resu lt greater than or equal to 126 mg/dL suggests DIABETES MELLITUS per A.D.A. criteria. Hemoglobin (Bld) [Mass/Vol] 11.6 g/dL 12.0-15.0 [facility] Monocytes/100 WBC (Bld) 10.6 % 0-10 [facility] Neutrophils (Bld) [#/Vol] 4.0 10*3/uL 2.0-7.7 [facility] Neutrophils/100 WBC (Bld) 62.3 % 47-70 [facility] Potassium [Moles/Vol] 3.7 mmol/L 3.5-5.1 [facility] Sodium [Moles/Vol] 137 mmol/L 136-145 [facility] Triglyceride [Mass/Vol] 227 mg/dL <199 [facility] Comment on above: The drugs N-Acetylcy steine and Metamizole may falsely depress this assay.Serum Triglycerides Reference Interval Normal <150 mg/dL Borderline high 150 - 199 mg/dL High 200 - 499 mg/dL Very High > or = 500 mg/dL WBC (Bld) [#/Vol] 6.4 10*3/uL 4.4-11.0 [facility] Determination of erythrocyte mean corpuscular volume (MCV)Ordered By: Kaylie Trujillo on 09-10-2023 MCV (RBC) [Entitic vol] 82.4 fL 81-99 [facility] Erythrocyte distribution wid th ratioOrdered By: Kaylieoskar Trujillo on 09-10-2023 Erythrocyte distribution width (RBC) [Ratio] 14.3 % 11.6-14.6 [facility] Erythrocyte distribution wid th standard deviationOrdered By: Kaylie Ronnie on 09-10-2023 Erythrocyte distribution width (RBC) [Entitic vol] 42.5 fL 35.1-43.9 [facility] Hematocrit Auto (Bld) [Volum e fraction]Ordered By: Kaylie Trujillo on 09-10-2023 Hematocrit (Bld) [Volume fraction] 36.6 % 37-47 [facility] Immature granulocytes/100 WB C Auto (Bld)Ordered By: Kaylie Trujillo on 09-10-2023 Immature granulocytes/100 WBC (Bld) 0.500 % 0.0-0.9 [facility] Comment on above: IG% - Immature Granu locytes (promyelocytes, myelocytes and metamyelocytes) > 1% indicates that a LEFT SHIFT is Present. Laboratory - Chemistry and C hemistry - challengeOrdered By: Kaylieoskar Trujillo on 09-10-2023 Cholesterol in HDL [Mass/Vol] 31 mg/dL >40 [facility] Comment on above: The drugs N-Acetylcy steine and Metamizole may falsely depress this assay. Reference Range HDL <40 mg/dL Low HDL Cholesterol HDL >or= 60 mg/dL High HDL Cholesterol Cholesterol in LDL [Mass/Vol] 64 mg/dL 0-130 [facility] CO2 [Moles/Vol] 31.0 mmol/L 21.0-32.0 [facility] Cobalamin (Vitamin B12) [Mass/Vol] 300 pg/mL 211-911 [facility] Magnesium [Mass/Vol] 1.8 mg/dL 1.6-2.6 [facility] Urea nitrogen/Creatinine [Mass ratio] 20.4 mg/mg 10-20 [facility] Laboratory - Hematology and Cell countsOrdered By: Kaylie Trujillo on 09-10-2023 MCH (RBC) [Entitic mass] 26.1 pg 27.0-32.0 [facility] MCHC (RBC) [Mass/Vol] 31.7 g/dL 32-36 [facility] Nucleated RBC/100 WBC (Bld) [Ratio] 0 % 0-5 [facility] Platelet mean volume (Bld) [Entitic vol] 9.8 fL 6.2-12.0 [facility] Platelets (Bld) [#/Vol] 262 10*3/uL 150-450 [facility] No Panel InformationOrdered By: Kaylie Trujillo on 09-10-2023 Estimated GFR (MDRD) Amer 92 mL/min >60 [facility] Comment on above: GFR Calc Estimated GFR (MDRD) Non-Af Amer 76 mL/min >60 [facility] Comment on above: Non- GFR Calc Vitamin D 25-Hydroxy 18.5 ng/mL [facility] Comment on above: Vitamin D 25(OH) Sta tus Range Deficiency <20 ng/mL (50nmol/L) Insufficiency 20 - 30 ng/mL (50 - 75 nmol/L) Sufficiency 30 - 100 ng/mL (75 - 250 nmol/L) Toxicity >100 ng/mL (>250 nmol/L) VLDL Cholesterol 45 mg/dL 5-40 [facility] RBC Auto (Bld) [#/Vol]Ordere d By: Kaylie Trujillo on 09-10-2023 RBC (Bld) [#/Vol] 4.44 10*6/uL 4.2-5.4 [facility] Serum or plasma calcium xiomara urement (mass/volume)Ordered By: Kaylie Trujillo on 09-10-2023 Calcium [Mass/Vol] 8.7 mg/dL 8.5-10.1 [facility] Serum or plasma creatinine m easurement (mass/volume)Ordered By: Kaylie Trujillo on 09-10-2023 Creatinine [Mass/Vol] 0.83 mg/dL 0.55-1.02 [facility] Comment on above: The validity of the calculated GFR & GFRAA in patients over 70 years has not been determined. Clinical correlation is essential. Serum or plasma thyroid stim ulating hormone (TSH) measurement (units/volume)Ordered By: Kaylie Trujillo on 09-10-2023 TSH Qn 5.60 uIU/mL 0.358-3.74 [facility] Serum or plasma urea nitroge n measurement (mass/volume)Ordered By: Kaylieoskar Trujillo on 09-10-2023 Urea nitrogen [Mass/Vol] 17 mg/dL 7-18 [facility] Thin prep Papanicolaou smear with manual screeningOrdered By: [facility] on 09-10-2023 Thin prep Papanicolaou smear with manual screening 9 5-15 [facility] Whole blood hemoglobin A1c/t otal hemoglobin ratio (mass fraction)Ordered By: Kaylieoskar Trujillo on 09-10-2023 HbA1c (Bld) [Mass fraction] 10.8 % 3.8-5.6 [facility] Comment on above: Normal < 5.7 % Predi abetic 5.7 - 6.4 % Diabetic >or= 6.5 % Please note range changes. CASE MANAGEMon 09-07-2023 CASE MANAGEM HNO ID: [id number] Author: JAMESON BARON RN Service: ? Author Type: Registered Nurse Type: Care Mgt Progress Note Filed: 09/07/2023 14:42 Note Text: CARE MANAGEMENT DISCHARGE NOTE SERVICE DATE: September 07, 2023 SERVICE TIME: 2:41 PM Admission Date: 09/02/2023 LOS: 5 days Discharge Arrangement Discharge Arrangement: Nursing Home Facility Services Arranged Provider Name: [facility] Caregiver Assessment Caregiver is ready, willing and able to meet the patient's needs as recommended by the inter-professional team: Yes Name of Caregiver: SNF Transportation Arrangements Transportation Arrangements: Ambulance Transportation Agency and Phone #:: [facility] ( [facility] ) [phone] / [phone] Date of Trip: 09/07/23 Time of Trip: 1700 Type of Service: BLS Non-emergency Is Patient Medicaid Pending?: No Screen Tacker Location: [facility] Destination: [facility] Care Management Responsibility: None Handoff Communication: Handoff to: Other Caregiver Other Caregiver Name/Phone: nurse to call report Additional Information: Patient to discharge to [facility]. [facility] transport via cot set up for patient at 5PM. Patient and nurse made aware. Transport folder complete and on the chart. SIGNATURE: Jameson Baron RN PATIENT NAME: Trenton Jackson DATE: September 07, 2023 TIME: 2:41 PM CONTACT #: [phone] [facility] HNO ID: [id number] Author: FREDA MACEDO MD Service: General Surgery [...] Doctor: Freda Macedo MD Primary Care Provider: [facility] My Medical Team Members: Treatment Team: Attending Provider: Freda Macedo MD Consulting: Jair Gutierrez MD Consulting: Diya May MD MY CONDITION AT DISCHARGE: Stable REASON I WAS IN THE HOSPITAL: Fall SUMMARY OF WHAT HAPPENED WHILE I WAS IN THE HOSPITAL: Ms. Jackson was admitted at [facility] on 09/02/2023 following a fall. She was found to have the following acute traumatic injuries: 1. Right-sided acute comminuted intertrochanteric proximal femur fracture She was evaluated by orthopedic who recommended surgical fixation of her femur fracture, which she underwent on 09/03/2023. She was evaluated by physical and occupational therapy who recommended a Nursing Home Facility for her ongoing recovery. Ms. Jackson [...] disorder, mild, abuse Coronary artery disease involving jamul coronary artery of jamul heart without angina pectoris Trauma Fall Resolved Problems: * No resolved hospital problems. * OPERATIONS PERFORMED WHILE IN THE HOSPITAL: 09/03/2023 - Right hip CMN (Dr. May) IMPORTANT TEST/PROCEDURES: No procedures performed TEST RESULTS NOT AVAILABLE AT THIS TIME: No pending results Discharge Disposition Discharge Disposition: Nursing Home Facility - Less than 30 Days Activity When You Leave the Hospital May bathe and shower Resume pre-hospital activity Diet Instructions Resume your pre-hospital diet For Pain When You Leave the Hospital Continue taking previously prescribed pain medications as directed If you become constipated, you may use any lvxt-jfc-zccicsy treatment such as Milk of Magnesia, Sennakot, Prune Juice, Suppositories, etc. in addition to the stool softener/fiber supplement Use the dispensed medication (see prescription) You should use an qwnn-rbo-swduult stool softener (Docusate sodium) and/or a fiber [...] call for appointment?: Yes Diya May MD [phone] [facility] [address] [facility] [address] PCP Requested Referral Follow-Up Appointment Please discuss [...] weeks Patient/Parents to call for appointment?: Yes [facility] [phone] [facility] [address] [facility] [address] (more content not included)... Normal [facility] ED PROV NOTEon 09-07-2023 ED PROV NOTE HNO ID: [id number] Author: MIRNA SAHU MD Service: Emergency Medicine [...] Normal ra (more content not included)... Normal [facility] Basic metabolic 2000 panelon 09-06-2023 Anion gap [Moles/Vol] 9 mmol/L Normal 9-18 [facility] Comment on above: Order Comment: Radha tony Type: BLOOD SPECIMEN Ordering Facility: [facility] Address: [address] [place] [address] Performed By: #### 5 8410-2 #### [facility] CLIA [id number] 1 [place] [address] [place] Calcium [Mass/Vol] 8.4 mg/dL Low 8.5-10.2 [facility] Comment on above: Order Comment: Speci men Type: BLOOD SPECIMEN Ordering Facility: [facility] Address: [facility] [place] [address] Performed By: #### 5 8410-2 #### [facility] CLIA [id number] 1 [place] [address] [place] Chloride [Moles/Vol] 97 mmol/L Normal 97-105 [facility] Comment on above: Order Comment: Speci men Type: BLOOD SPECIMEN Ordering Facility: [facility] Address: [address] [place] [address] Performed By: #### 5 8410-2 #### [facility] CLIA [id number] [address] [facility] CO2 [Moles/Vol] 29 mmol/L Normal 22-30 [facility] Comment on above: Order Comment: Speci men Type: BLOOD SPECIMEN Ordering Facility: [facility] Address: [address] [place] [address] Performed By: #### 5 8410-2 #### [facility] CLIA [id number] [address] Creatinine [Mass/Vol] 0.69 mg/dL Normal 0.58-0.96 [facility] Comment on above: Order Comment: Speci men Type: BLOOD SPECIMEN Ordering Facility: [facility] Address: [address] [place] [address] Performed By: #### 5 8410-2 #### [facility] CLIA [id number] [address] Creatinine and Glomerular filtration rate.predicted panel (S/P/Bld) 105 mL/min/1.73m??? Normal >=60 [facility] Comment on above: Order Comment: Speci men Type: BLOOD SPECIMEN Ordering Facility: [facility] Address: [address] [place] [address] Result Comment: Crissy mated Glomerular Filtration Rate [...] [facility] CLIA [id number] [address] Glucose [Mass/Vol] 120 mg/dL High 74-99 [facility] Comment on above: Order Comment: Radha tony Type: BLOOD SPECIMEN Ordering Facility: [facility] Address: [address] [place] [address] Result Comment: The [place] [employer] Association (ADA) provides guidance for cutoff [...] Standards of Medical Care in Diabetes 2016, [place] [employer]. Diabetes Care. 2016.39(Suppl 1). Performed By: #### 5 8410-2 #### [facility] CLIA [id number] 1 [place] [address] [place] Potassium [Moles/Vol] 3.8 mmol/L Normal 3.7-5.1 [facility] Comment on above: Order Comment: Radha tony Type: BLOOD SPECIMEN Ordering Facility: [facility] Address: [address] [place] [address] Performed By: #### 5 8410-2 #### [facility] CLIA [id number] [address] [place] [address] [place] Sodium [Moles/Vol] 135 mmol/L Low 136-144 [facility] Comment on above: Order Comment: Radha tony Type: BLOOD SPECIMEN Ordering Facility: [facility] Address: [address] [place] [address] Performed By: #### 5 8410-2 #### [facility] CLIA [id number] 1 [place] [address] [place] Urea nitrogen [Mass/Vol] 13 mg/dL Normal 7-21 [facility] Comment on above: Order Comment: Radha tony Type: BLOOD SPECIMEN Ordering Facility: [facility] Address: [address] [place], [place] [address] Performed By: #### 5 8410-2 #### [facility] CLIA [id number] [address] CBC panel Auto (Bld)on 09-05 Erythrocyte distribution width (RBC) [Ratio] 14.1 % Normal 11.5-15.0 [facility] Comment on above: Order Comment: Speci men Type: BLOOD SPECIMEN Ordering Facility: [facility] Address: [address] [place] [address] Performed By: #### 5 8410-2 #### [facility] CLIA [id number] [address] Hematocrit (Bld) [Volume fraction] 31.4 % Low 36.0-46.0 [facility] Comment on above: Order Comment: Speci men Type: BLOOD SPECIMEN Ordering Facility: [facility] Address: [address] [place] [address] Performed By: #### 5 8410-2 #### [facility] CLIA [id number] [address] Hemoglobin (Bld) [Mass/Vol] 10.1 g/dL Low 11.5-15.5 [facility] Comment on above: Order Comment: Speci men Type: BLOOD SPECIMEN Ordering Facility: [facility] Address: [address] [place] [address] Performed By: #### 5 8410-2 #### [facility] CLIA [id number] [address] MCH (RBC) [Entitic mass] 26.5 pg Normal 26.0-34.0 [facility] Comment on above: Order Comment: Speci men Type: BLOOD SPECIMEN Ordering Facility: [facility] Address: [facility] [place] [address] Performed By: #### 5 8410-2 #### [facility] CLIA [id number] [address] MCHC (RBC) [Mass/Vol] 32.2 g/dL Normal 30.5-36.0 [facility] Comment on above: Order Comment: Speci men Type: BLOOD SPECIMEN Ordering Facility: [facility] Address: [facility] [place] [address] Performed By: #### 5 8410-2 #### [facility] CLIA [id number] [address] MCV (RBC) [Entitic vol] 82.4 fL Normal 80.0-100.0 [facility] Comment on above: Order Comment: Speci men Type: BLOOD SPECIMEN Ordering Facility: [facility] Address: [address] [place] [address] Performed By: #### 5 8410-2 #### [facility] CLIA [id number] [address] OF [facility] Nucleated RBC (Bld) [#/Vol] 10*3/uL Normal <0.01 [facility] Comment on above: Order Comment: Speci men Type: BLOOD SPECIMEN Ordering Facility: [facility] Address: [address] [place] [address] Performed By: #### 5 8410-2 #### [facility] CLIA [id number] [address] Platelet mean volume (Bld) [Entitic vol] 10.2 fL Normal 9.0-12.7 [facility] Comment on above: Order Comment: Speci men Type: BLOOD SPECIMEN Ordering Facility: [facility] Address: [address] [place] [address] Performed By: #### 5 8410-2 #### [facility] CLIA [id number] [address] OF [place] Platelets (Bld) [#/Vol] 135 10*3/uL Low 150-400 [facility] Comment on above: Order Comment: Speci men Type: BLOOD SPECIMEN Ordering Facility: [facility] Address: [address] [place] [address] Result Comment: No c lot detected. Performed By: #### 5 8410-2 #### [facility] CLIA [id number] [address] [place] RBC (Bld) [#/Vol] 3.81 10*6/uL Low 3.90-5.20 [facility] Comment on above: Order Comment: Speci men Type: BLOOD SPECIMEN Ordering Facility: [facility] Address: [address] [place] [address] Performed By: #### 5 8410-2 #### [facility] CLIA [id number] [address] OF [facility] WBC (Bld) [#/Vol] 9.50 10*3/uL Normal 3.70-11.00 [facility] Comment on above: Order Comment: Speci men Type: BLOOD SPECIMEN Ordering Facility: [facility] Address: [address] [place] [address] Performed By: #### 5 8410-2 #### [facility] CLIA [id number] [address] THERAPY NTon 09-06-2023 THERAPY NT HNO ID: [id number] Author: EILEEN MACIAS, PT Service: Physical Therapy Author Type: Physical Therapist Type: Therapy (PT/OT/Speech/Resp) Filed: 09/06/2023 13:17 Note Text: Physical Therapy Treatment Summary SERVICE DATE: 09/06/2023 SERVICE TIME: 1030 to 1053 ROOM: [place] [address] PT 6 Clicks Score: 10 DISCHARGE RECOMMENDATIONS [...] R hip fracture, s/p: CMN R femur / Relevant Past Medical History: DM, HTN, anx/depression HOME LIVING Patient Lives With: Family (daughter and daughter's boyfriend) Assistance Available: Part-Time Entry To Home: Stairs Number Of Stairs Into Home: 1 Number Of Stairs To Bed/Bath: 0 Tub/Shower Type: sponge bathes Equipment Owned: Rollator PRIOR FUNCTIONAL LEVEL Required Assistance Assistance Required With: Transportation 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 SUBJECTIVE Agreeable to PT, reports increased pain this session. Emotional, tearful. THERAPY DIAGNOSIS Reduced mobility-other, Muscle Weakness (generalized), Unsteadiness on feet, Abnormalities of gait and mobility-other, General symptoms and signs-other, Difficulty walking-musculoskeletal TREATMENT INTERVENTIONS Therapeutic Activity (59830), Therapeutic Exercise (02192) Timed Code Treatment (minutes): 23 Skilled Treatment Time (minutes): 23 Therapeutic Exercise (86724) Treatment Minutes: 13 $ Therapeutic Exercise (04801) Billed Units: 1 unit Patient completed right hip fracture protocol (ankle pump, quad set, gluteal set, heel slide, hip abd/add to neutral, short arc quad, hip adductor squeeze) x 10 reps with min/mod amount of assist. Patient reports moderate/severe pain. Patient set up with ice to surgical hip and elevated lower extremity as needed. Therapeutic Activity (27778) Treatment Minutes: 10 $ Therapeutic Activity (33992) Billed Units: 1 unit Rolling for hygiene, [...] Training, Balance Training, Neuromuscular Re-education SIGNATURE: Eileen Macias, NAINA PATIENT NAME: Trenton Jackson DATE: September 06, 2023 TIME: 1:14 PM Normal [facility] Basic metabolic 2000 panelon 09-05-2023 Anion gap [Moles/Vol] 9 mmol/L Normal 9-18 [facility] Comment on above: Order Comment: Speci men Type: BLOOD SPECIMEN Ordering Facility: [facility] Address: [address] [place] [address] Performed By: #### 2 4321-2 #### [facility] CLIA [id number] 1 [place] [address] [place] Calcium [Mass/Vol] 8.5 mg/dL Normal 8.5-10.2 [facility] Comment on above: Order Comment: Speci men Type: BLOOD SPECIMEN Ordering Facility: [facility] Address: [address] [place] [address] Performed By: #### 2 4321-2 #### [facility] CLIA [id number] 1 [place] [address] [place] Chloride [Moles/Vol] 96 mmol/L Low 97-105 [facility] Comment on above: Order Comment: Speci men Type: BLOOD SPECIMEN Ordering Facility: [facility] Address: [address] [place] [address] Performed By: #### 2 4321-2 #### [facility] CLIA [id number] 1 [place] [address] [place] CO2 [Moles/Vol] 28 mmol/L Normal 22-30 [facility] Comment on above: Order Comment: Speci men Type: BLOOD SPECIMEN Ordering Facility: [facility] Address: [address] [place] [address] Performed By: #### 2 4321-2 #### [facility] CLIA [id number] [address] [place] Creatinine [Mass/Vol] 0.63 mg/dL Normal 0.58-0.96 [facility] Comment on above: Order Comment: Radha tony Type: BLOOD SPECIMEN Ordering Facility: [facility] Address: [address] [place] [address] Performed By: #### 2 4321-2 #### [facility] CLIA [id number] [address] Creatinine and Glomerular filtration rate.predicted panel (S/P/Bld) 107 mL/min/1.73m??? Normal >=60 [facility] Comment on above: Order Comment: Radha tony Type: BLOOD SPECIMEN Ordering Facility: [facility] Address: [address] [place] [address] Result Comment: Crissy mated Glomerular Filtration Rate [...] GFR. Performed By: #### 2 4321-2 #### [facility] CLIA [id number] [address] [place] [address] [place] [facility] Glucose [Mass/Vol] 110 mg/dL High 74-99 [facility] Comment on above: Order Comment: Radha tony Type: BLOOD SPECIMEN Ordering Facility: [facility] Address: [address] [place] [address] Result Comment: The [place] Diabetes Association (ADA) provides guidance for cutoff [...] Standards of Medical Care in Diabetes 2016, [place] [employer]. Diabetes Care. 2016.39(Suppl 1). Performed By: #### 2 4321-2 #### [facility] CLIA [id number] [address] Potassium [Moles/Vol] 3.8 mmol/L Normal 3.7-5.1 [facility] Comment on above: Order Comment: Speci men Type: BLOOD SPECIMEN Ordering Facility: [facility] Address: [address] [place] [address] Performed By: #### 2 4321-2 #### [facility] CLIA [id number] [address] Sodium [Moles/Vol] 133 mmol/L Low 136-144 [facility] Comment on above: Order Comment: Speci men Type: BLOOD SPECIMEN Ordering Facility: [facility] Address: [address] [place] [address] Performed By: #### 2 4321-2 #### [facility] CLIA [id number] [address] Urea nitrogen [Mass/Vol] 13 mg/dL Normal 7-21 [facility] Comment on above: Order Comment: Speci men Type: BLOOD SPECIMEN Ordering Facility: [facility] Address: [address] [place] [address] Performed By: #### 2 4321-2 #### [facility] CLIA [id number] [address] CBC panel Auto (Bld)on 09-04 Erythrocyte distribution width (RBC) [Ratio] 14.0 % Normal 11.5-15.0 [facility] Comment on above: Order Comment: Speci men Type: BLOOD SPECIMEN Ordering Facility: [facility] Address: [address] [place] [address] Performed By: #### 5 8410-2 #### [facility] CLIA [id number] [address] [place] [address] [place] Hematocrit (Bld) [Volume fraction] 35.1 % Low 36.0-46.0 [facility] Comment on above: Order Comment: Speci men Type: BLOOD SPECIMEN Ordering Facility: [facility] Address: [address] [place] [address] Performed By: #### 5 8410-2 #### [facility] CLIA [id number] [address] Hemoglobin (Bld) [Mass/Vol] 11.5 g/dL Normal 11.5-15.5 [facility] Comment on above: Order Comment: Speci men Type: BLOOD SPECIMEN Ordering Facility: [facility] Address: [address] [place] [address] Performed By: #### 5 8410-2 #### [facility] CLIA [id number] [address] OF [facility] MCH (RBC) [Entitic mass] 26.7 pg Normal 26.0-34.0 [facility] Comment on above: Order Comment: Speci men Type: BLOOD SPECIMEN Ordering Facility: [facility] Address: [address] [place] [address] Performed By: #### 5 8410-2 #### [facility] CLIA [id number] [address] MCHC (RBC) [Mass/Vol] 32.8 g/dL Normal 30.5-36.0 [facility] Comment on above: Order Comment: Speci men Type: BLOOD SPECIMEN Ordering Facility: [facility] Address: [address] [place] [address] Performed By: #### 5 8410-2 #### [facility] CLIA [id number] [address] MCV (RBC) [Entitic vol] 81.4 fL Normal 80.0-100.0 [facility] Comment on above: Order Comment: Speci men Type: BLOOD SPECIMEN Ordering Facility: [facility] Address: [address] [place] [address] Performed By: #### 5 8410-2 #### [facility] CLIA [id number] [address] Nucleated RBC (Bld) [#/Vol] 10*3/uL Normal <0.01 [facility] Comment on above: Order Comment: Speci men Type: BLOOD SPECIMEN Ordering Facility: [facility] Address: [address] [place] [address] Performed By: #### 5 8410-2 #### [facility] CLIA [id number] [address] OF [facility] Platelet mean volume (Bld) [Entitic vol] 10.5 fL Normal 9.0-12.7 [facility] Comment on above: Order Comment: Speci men Type: BLOOD SPECIMEN Ordering Facility: [facility] Address: [address] [place] [address] Performed By: #### 5 8410-2 #### [facility] CLIA [id number] [address] Platelets (Bld) [#/Vol] 111 10*3/uL Low 150-400 [facility] Comment on above: Order Comment: Speci men Type: BLOOD SPECIMEN Ordering Facility: [facility] Address: [address] [place] [address] Result Comment: No c lot detected. Performed By: #### 5 8410-2 #### [facility] CLIA [id number] [address] RBC (Bld) [#/Vol] 4.31 10*6/uL Normal 3.90-5.20 [facility] Comment on above: Order Comment: Speci men Type: BLOOD SPECIMEN Ordering Facility: [facility] Address: [address] [place] [address] Performed By: #### 5 8410-2 #### [facility] CLIA [id number] [address] OF [place] WBC (Bld) [#/Vol] 13.47 10*3/uL High 3.70-11.00 [facility] Comment on above: Order Comment: Speci men Type: BLOOD SPECIMEN Ordering Facility: [facility] Address: [facility] [place] [address] Performed By: #### 5 8410-2 #### [facility] CLIA [id number] [address] [place] [address] [place] THERAPY NTon 09-05-2023 THERAPY NT HNO ID: [id number] Author: EILEEN MACIAS, PT Service: Physical Therapy Author Type: Physical Therapist Type: Therapy (PT/OT/Speech/Resp) Filed: 09/05/2023 13:25 Note Text: Physical Therapy Treatment Summary SERVICE DATE: 09/05/2023 SERVICE TIME: 1039 to 1102 ROOM: [place] [address] PT 6 Clicks Score: 10 DISCHARGE RECOMMENDATIONS [...] R hip fracture, s/p: CMN R femur 4/ Relevant Past Medical History: DM, HTN, psych, TMA left foot HOME LIVING Patient Lives With: Family (daughter and daughter's boyfriend) Assistance Available: Part-Time Entry To Home: Stairs Number Of Stairs Into Home: 1 Number Of Stairs To Bed/Bath: 0 Tub/Shower Type: sponge bathes Equipment Owned: Rollator PRIOR FUNCTIONAL LEVEL Required Assistance Assistance Required With: Transportation 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 SUBJECTIVE Pleasant and agreeable to PT. THERAPY DIAGNOSIS Reduced mobility-other, Muscle Weakness (generalized), Unsteadiness on feet, Abnormalities of gait and mobility-other, General symptoms and signs-other, Difficulty walking-musculoskeletal TREATMENT INTERVENTIONS Therapeutic Exercise (32368), Therapeutic Activity (34306) Timed Code Treatment (minutes): 23 Skilled Treatment Time (minutes): 23 Therapeutic Exercise (39439) Treatment Minutes: 12 $ Therapeutic Exercise (44874) Billed Units: 1 unit Patient completed right hip fracture protocol (ankle pump, quad set, gluteal set, heel slide, hip abd/add to neutral, short arc quad, long arc quad, hip adductor squeeze) x 10 reps with min amount of assist. Patient reports moderate pain. Patient set up with ice to surgical hip and elevated lower extremity as needed. Therapeutic Activity (84290) Treatment Minutes: 11 $ Therapeutic Activity (23893) Billed Units: 1 unit TRAINING AND EDUCATION [...] September 05, 2023 TIME: 1:23 PM Normal [facility] ANES POSTPROC EVALon 024 ANES POSTPROC EVAL HNO ID: [id number] Author: MOODY HODGE DO Service: Anesthesiology Author [...] November 02, 2023 TIME: 10:25 AM CSN: [id number] Normal [facility] Basic metabolic 2000 panelon 09-04-2023 Anion gap [Moles/Vol] 9 mmol/L Normal 9-18 [facility] Comment on above: Order Comment: Speci men Type: BLOOD SPECIMEN Ordering Facility: [facility] Address: [address] [place] [address] Performed By: #### 2 4321-2 #### [facility] CLIA [id number] [address] [place] Calcium [Mass/Vol] 8.5 mg/dL Normal 8.5-10.2 [facility] Comment on above: Order Comment: Speci men Type: BLOOD SPECIMEN Ordering Facility: [facility] Address: [address] [place] [address] Performed By: #### 2 4321-2 #### [facility] CLIA [id number] 1 [place] [address] [place] Chloride [Moles/Vol] 97 mmol/L Normal 97-105 [facility] Comment on above: Order Comment: Speci men Type: BLOOD SPECIMEN Ordering Facility: [facility] Address: [address] [place] [address] Performed By: #### 2 4321-2 #### [facility] CLIA [id number] [address] [place] CO2 [Moles/Vol] 30 mmol/L Normal 22-30 [facility] Comment on above: Order Comment: Speci men Type: BLOOD SPECIMEN Ordering Facility: [facility] Address: [address] [place] [address] Performed By: #### 2 4321-2 #### [facility] CLIA [id number] [address] [place] Creatinine [Mass/Vol] 0.78 mg/dL Normal 0.58-0.96 [facility] Comment on above: Order Comment: Speci men Type: BLOOD SPECIMEN Ordering Facility: [facility] Address: [address] [place] [address] Performed By: #### 2 4321-2 #### [facility] CLIA [id number] [address] [place] Creatinine and Glomerular filtration rate.predicted panel (S/P/Bld) 92 mL/min/1.73m??? Normal >=60 [facility] Comment on above: Order Comment: Radha tony Type: BLOOD SPECIMEN Ordering Facility: [facility] Address: [address] [place] [address] Result Comment: Crissy mated Glomerular Filtration Rate [...] [facility] CLIA [id number] 1 [place] [address] [place] Glucose [Mass/Vol] 174 mg/dL High 74-99 [facility] Comment on above: Order Comment: Radha tony Type: BLOOD SPECIMEN Ordering Facility: [facility] Address: [address] [place] [address] Result Comment: The [place] Diabetes Association (ADA) provides guidance for cutoff [...] Standards of Medical Care in Diabetes 2016, [place] [employer]. Diabetes Care. 2016.39(Suppl 1). Performed By: #### 2 4321-2 #### [facility] CLIA [id number] [address] [place] [address] [place] Potassium [Moles/Vol] 3.8 mmol/L Normal 3.7-5.1 [facility] Comment on above: Order Comment: Radha tony Type: BLOOD SPECIMEN Ordering Facility: [facility] Address: [address] [place] [id number] Performed By: #### 2 4321-2 #### [facility] CLIA [id number] [address] [place] [facility] Sodium [Moles/Vol] 136 mmol/L Normal 136-144 [facility] Comment on above: Order Comment: Speci men Type: BLOOD SPECIMEN Ordering Facility: [facility] Address: [address] [place] [address] Performed By: #### 2 4321-2 #### [facility] CLIA [id number] [address] [place] Urea nitrogen [Mass/Vol] 13 mg/dL Normal 7-21 [facility] Comment on above: Order Comment: Speci men Type: BLOOD SPECIMEN Ordering Facility: [facility] Address: [address] [place] [address] Performed By: #### 2 4321-2 #### [facility] CLIA [id number] [address] [place] CBC panel Auto (Bld)on 09-03 Erythrocyte distribution width (RBC) [Ratio] 14.1 % Normal 11.5-15.0 [facility] Comment on above: Order Comment: Speci men Type: BLOOD SPECIMEN Ordering Facility: [facility] Address: [address] [place] [address] Performed By: #### 2 4321-2 #### [facility] CLIA [id number] [address] [place] Hematocrit (Bld) [Volume fraction] 37.7 % Normal 36.0-46.0 [facility] Comment on above: Order Comment: Speci men Type: BLOOD SPECIMEN Ordering Facility: [facility] Address: [address] [place] [address] Performed By: #### 2 4321-2 #### [facility] CLIA [id number] [address] [place] Hemoglobin (Bld) [Mass/Vol] 12.3 g/dL Normal 11.5-15.5 [facility] Comment on above: Order Comment: Speci men Type: BLOOD SPECIMEN Ordering Facility: [facility] Address: [address] [place] [address] Performed By: #### 2 4321-2 #### [facility] CLIA [id number] [address] MCH (RBC) [Entitic mass] 26.8 pg Normal 26.0-34.0 [facility] Comment on above: Order Comment: Speci men Type: BLOOD SPECIMEN Ordering Facility: [facility] Address: [address] [place] [address] Performed By: #### 2 4321-2 #### [facility] CLIA [id number] [address] MCHC (RBC) [Mass/Vol] 32.6 g/dL Normal 30.5-36.0 [facility] Comment on above: Order Comment: Speci men Type: BLOOD SPECIMEN Ordering Facility: [facility] Address: [address] [place] [address] Performed By: #### 2 4321-2 #### [facility] CLIA [id number] [address] MCV (RBC) [Entitic vol] 82.1 fL Normal 80.0-100.0 [facility] Comment on above: Order Comment: Speci men Type: BLOOD SPECIMEN Ordering Facility: [facility] Address: [address] [place] [address] Performed By: #### 2 4321-2 #### [facility] CLIA [id number] [address] Nucleated RBC (Bld) [#/Vol] 10*3/uL Normal <0.01 [facility] Comment on above: Order Comment: Speci men Type: BLOOD SPECIMEN Ordering Facility: [facility] Address: [address] [place] [address] Performed By: #### 2 4321-2 #### [facility] CLIA [id number] [address] [place] Platelet mean volume (Bld) [Entitic vol] 9.9 fL Normal 9.0-12.7 [facility] Comment on above: Order Comment: Speci men Type: BLOOD SPECIMEN Ordering Facility: [facility] Address: [address] [place] [address] Performed By: #### 2 4321-2 #### [facility] CLIA [id number] [address] OF [facility] Platelets (Bld) [#/Vol] 108 10*3/uL Low 150-400 [facility] Comment on above: Order Comment: Speci men Type: BLOOD SPECIMEN Ordering Facility: [facility] Address: [address] [place] [address] Result Comment: No c lot detected. Performed By: #### 2 4321-2 #### [facility] CLIA [id number] [address] RBC (Bld) [#/Vol] 4.59 10*6/uL Normal 3.90-5.20 [facility] Comment on above: Order Comment: Speci men Type: BLOOD SPECIMEN Ordering Facility: [facility] Address: [address] [place] [address] Performed By: #### 2 4321-2 #### [facility] CLIA [id number] [address] OF [facility] WBC (Bld) [#/Vol] 12.21 10*3/uL High 3.70-11.00 [facility] Comment on above: Order Comment: Speci men Type: BLOOD SPECIMEN Ordering Facility: [facility] Address: [address] [place] [address] Performed By: #### 2 4321-2 #### [facility] CLIA [id number] [address] Comprehensive metabolic 2000 panelon 09-04-2023 Albumin [Mass/Vol] 2.6 g/dL Low 3.9-4.9 [facility] Comment on above: Order Comment: Speci men Type: BLOOD SPECIMEN Ordering Facility: [facility] Address: [address] [place] [address] Performed By: #### 2 4321-2 #### [facility] CLIA [id number] [address] [place] ALP [Catalytic activity/Vol] 92 U/L Normal 34-123 [facility] Comment on above: Order Comment: Speci men Type: BLOOD SPECIMEN Ordering Facility: [facility] Address: [address] [place] [address] Performed By: #### 2 4321-2 #### [facility] CLIA [id number] [address] OF [facility] ALT With P-5'-P [Catalytic activity/Vol] 9 U/L Normal 7-38 [facility] Comment on above: Order Comment: Speci men Type: BLOOD SPECIMEN Ordering Facility: [facility] Address: [address] [place] [address] Performed By: #### 2 4321-2 #### [facility] CLIA [id number] [address] Anion gap [Moles/Vol] 6 mmol/L Low 9-18 [facility] Comment on above: Order Comment: Speci men Type: BLOOD SPECIMEN Ordering Facility: [facility] Address: [address] [place] [address] Performed By: #### 2 4321-2 #### [facility] CLIA [id number] [address] AST With P-5'-P [Catalytic activity/Vol] 13 U/L Normal 13-35 [facility] Comment on above: Order Comment: Speci men Type: BLOOD SPECIMEN Ordering Facility: [facility] Address: [address] [place] [address] Performed By: #### 2 4321-2 #### [facility] CLIA [id number] [address] Bilirubin [Mass/Vol] 0.8 mg/dL Normal 0.2-1.3 [facility] Comment on above: Order Comment: Speci men Type: BLOOD SPECIMEN Ordering Facility: [facility] Address: [address] [place], [place] [address] Performed By: #### 2 4321-2 #### [facility] CLIA [id number] [address] [place] Calcium [Mass/Vol] 8.4 mg/dL Low 8.5-10.2 [facility] Comment on above: Order Comment: Speci men Type: BLOOD SPECIMEN Ordering Facility: [facility] Address: [address] [place] [address] Performed By: #### 2 4321-2 #### [facility] CLIA [id number] 1 [place] [address] [place] Chloride [Moles/Vol] 98 mmol/L Normal 97-105 [facility] Comment on above: Order Comment: Speci men Type: BLOOD SPECIMEN Ordering Facility: [facility] Address: [address] [place] [address] Performed By: #### 2 4321-2 #### [facility] CLIA [id number] [address] [place] CO2 [Moles/Vol] 30 mmol/L Normal 22-30 [facility] Comment on above: Order Comment: Speci men Type: BLOOD SPECIMEN Ordering Facility: [facility] Address: [address] [place] [address] Performed By: #### 2 4321-2 #### [facility] CLIA [id number] [address] [place] Creatinine [Mass/Vol] 0.66 mg/dL Normal 0.58-0.96 [facility] Comment on above: Order Comment: Speci men Type: BLOOD SPECIMEN Ordering Facility: [facility] Address: [address] [place] [address] Performed By: #### 2 4321-2 #### [facility] CLIA [id number] [address] [place] Creatinine and Glomerular filtration rate.predicted panel (S/P/Bld) 106 mL/min/1.73m??? Normal >=60 [facility] Comment on above: Order Comment: Speci men Type: BLOOD SPECIMEN Ordering Facility: [facility] Address: [address] [place] [address] Result Comment: Crissy mated Glomerular Filtration Rate [...] GFR. Performed By: #### 2 4321-2 #### [facility] CLIA [id number] [address] [place] [address] [place] Glucose [Mass/Vol] 160 mg/dL High 74-99 [facility] Comment on above: Order Comment: Radha tony Type: BLOOD SPECIMEN Ordering Facility: [facility] Address: [address] [place] [address] Result Comment: The [place] Diabetes Association (ADA) provides guidance for cutoff [...] Standards of Medical Care in Diabetes 2016, [place] [employer]. Diabetes Care. 2016.39(Suppl 1). Performed By: #### 2 4321-2 #### [facility] CLIA [id number] 1 [place] [address] [place] Potassium [Moles/Vol] 3.7 mmol/L Normal 3.7-5.1 [facility] Comment on above: Order Comment: Radha tony Type: BLOOD SPECIMEN Ordering Facility: [facility] Address: [address] [id number] Performed By: #### 2 4321-2 #### [facility] CLIA [id number] [address] [place] Protein [Mass/Vol] 5.8 g/dL Low 6.3-8.0 [facility] Comment on above: Order Comment: Speci men Type: BLOOD SPECIMEN Ordering Facility: [facility] Address: [address] [place] [address] Performed By: #### 2 4321-2 #### [facility] CLIA [id number] [address] [place] Sodium [Moles/Vol] 134 mmol/L Low 136-144 [facility] Comment on above: Order Comment: Speci men Type: BLOOD SPECIMEN Ordering Facility: [facility] Address: [address] [place] [address] Performed By: #### 2 4321-2 #### [facility] CLIA [id number] [address] [place] [address] [place] Urea nitrogen [Mass/Vol] 13 mg/dL Normal 7-21 [facility] Comment on above: Order Comment: Speci men Type: BLOOD SPECIMEN Ordering Facility: [facility] Address: [address] [place] [address] Performed By: #### 2 4321-2 #### [facility] CLIA [id number] [address] [place] [address] HbA1c (Bld)on 09-04-2023 Average glucose Estimated from glycated hemoglobin (Bld) [Mass/Vol] 272 mg/dL Normal [facility] Comment on above: Order Comment: Speci men Type: BLOOD SPECIMEN Ordering Facility: [facility] Address: [address] [place] [address] Result Comment: eAG: (Estimated average glucose) is a calculated value from HgbA1c and is financial services sales representative of the average blood glucose level in the last 2-3 month period. Performed By: #### 2 4321-2 #### [facility] CLIA [id number] [address] [place] HbA1c (Bld) [Mass fraction] 11.1 % High 4.3-5.6 [facility] Comment on above: Order Comment: Speci men Type: BLOOD SPECIMEN Ordering Facility: [facility] Address: [address] [place] [address] Result Comment: Denny ican Diabetes Association guidelines indicate that patients with HgbA1c in the range 5.7-6.4% are at increased risk for development of diabetes, and intervention by lifestyle modification may be beneficial. HgbA1c greater or equal to 6.5% is considered diagnostic of diabetes. Performed By: #### 2 4321-2 #### [facility] CLIA [id number] [address] THERAPY NTon 09-04-2023 THERAPY NT HNO ID: [id number] Author: EILEEN MACIAS PT Service: Physical Therapy Author Type: Physical Therapist Type: Therapy (PT/OT/Speech/Resp) Filed: 09/04/2023 12:19 Note Text: Physical Therapy Evaluation Summary SERVICE DATE: 09/04/2023 SERVICE TIME: 0930 to 09 ROOM: [place] [address] PT 6 Clicks Score: 10 DISCHARGE RECOMMENDATIONS [...] R hip fracture, s/p: CMN R femur / Relevant Past Medical History: DM, HTN, psych HOME LIVING Patient Lives With: Family (daughter and daughter's boyfriend) Assistance Available: Part-Time Entry To Home: Stairs Number Of Stairs Into Home: 1 Number Of Stairs To Bed/Bath: 0 Tub/Shower Type: sponge bathes Equipment Owned: Rollator PRIOR FUNCTIONAL LEVEL Required Assistance Assistance Required With: Transportation 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 SUBJECTIVE Pleasant and agreeable to PT. THERAPY DIAGNOSIS Reduced mobility-other, Muscle Weakness (generalized), Unsteadiness on feet, Abnormalities of gait and mobility-other, General symptoms and signs-other, Difficulty walking-musculoskeletal TREATMENT INTERVENTIONS Evaluation, Therapeutic Activity (38609) Timed Code Treatment (minutes): 8 Skilled Treatment Time (minutes): 23 $ Evaluation-Moderate (41521) Billed Units: 1 unit Therapeutic Activity (45819) Treatment Minutes: 8 $ Therapeutic Activity (96057) Billed Units: 1 unit Instructed weight bearing [...] September 04, 2023 TIME: 12:19 PM Normal [facility] THERAPY NT HNO ID: [id number] Author: LEWIS CARPIO OTR/Gian Service: Occupational Therapy Author Type: Occupational Therapist Type: Therapy (PT/OT/Speech/Resp) Filed: 09/04/2023 09:28 Note Text: Occupational Therapy Evaluation Summary SERVICE DATE: 09/04/2023 SERVICE TIME: 816 to 08 ROOM: [place] [address] OT 6 Clicks Score: 16 DISCHARGE RECOMMENDATIONS [...] Required With: Transportation 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 Sleeps [...] and signs-other TREATMENT INTERVENTIONS Evaluation, Therapeutic Activity (05591) Timed Code Treatment (minutes): 12 Skilled Treatment Time (minutes): 29 $ Evaluation - Moderate (91580) Billed Units: 1 unit Therapeutic Activity (04282) Treatment Minutes: 12 $ Therapeutic Activity (57592) Billed Units: 1 unit TRAINING AND EDUCATION PROVIDED Assistive Device Use, Bed Mobility, Benefits of In-Hospital Mobility, Discharge Planning, Disease Specific Education, Functional Mobility Involving ADLs, Role of Occupational Therapy, Safety/Judgment, Precautions/Restrictions, Standing Balance to Improve [place] with ADLs/Self-Care, Transfer - Sit to Stand, [...] Next Visit: Bathing Training, Dressing Training SIGNATURE: LARRY Crocker/Gian PATIENT NAME: Trenton Jackson DATE: September 04, 2023 TIME: 9:[address] [facility] ANES PRE-OPon 09-03-2023 ANES PRE-OP HNO ID: [id number] Author: MOODY HODGE DO Service: Anesthesiology Author [...] Problems CARDIO (+) Coronary artery disease involving jamul coronary artery of jamul heart without angina pectoris (+) Essential hypertension [...] (HCC) -RENAL (+) ROBBIE (acute kidney injury) ([facility]) I - PHYSICAL EVALUATION AIRWAY Patient [...] 4 times (more content not included)... Normal [facility] BRIEF OP NOTon 09-03-2023 BRIEF OP NOT HNO ID: [id number] Author: JUANCARLOS ELDRIDGE MD Service: Orthopaedic Surgery Author Type: Resident Type: Brief Op Note Filed: 09/03/2023 13:25 Note Text: BRIEF OPERATIVE / PROCEDURE NOTE LOG ID: [id number] SURGERY/PROCEDURE DATE: 09/03/2023 INCISION/PROCEDURE START TIME: 12:41 PM INCISION CLOSE/PROCEDURE END TIME: SURGEON(S)/PROCEDURALIST( S) AND MARBLE SUPERVISOR(S): Surgeon(s) and Role: * Diya May [...] Eldridge MD Orthopaedic Surgery 09/03/2023 1:[address] [facility] Basic metabolic 2000 panelon 09-03-2023 Anion gap [Moles/Vol] 7 mmol/L Low 9-18 [facility] Comment on above: Order Comment: Speci men Type: BLOOD SPECIMEN Ordering Facility: [facility] Address: [address] [place] [address] Performed By: #### 5 8410-2 #### [facility] CLIA [id number] [address] [place] Calcium [Mass/Vol] 8.8 mg/dL Normal 8.5-10.2 [facility] Comment on above: Order Comment: Speci men Type: BLOOD SPECIMEN Ordering Facility: [facility] Address: [address] [place] [address] Performed By: #### 5 8410-2 #### [facility] CLIA [id number] [address] [place] Chloride [Moles/Vol] 99 mmol/L Normal 97-105 [facility] Comment on above: Order Comment: Speci men Type: BLOOD SPECIMEN Ordering Facility: [facility] Address: [address] [place] [address] Performed By: #### 5 8410-2 #### [facility] CLIA [id number] [address] [place] CO2 [Moles/Vol] 32 mmol/L High 22-30 [facility] Comment on above: Order Comment: Speci men Type: BLOOD SPECIMEN Ordering Facility: [facility] Address: [address] [place] [address] Performed By: #### 5 8410-2 #### [facility] CLIA [id number] [address] [place] Creatinine [Mass/Vol] 0.56 mg/dL Low 0.58-0.96 [facility] Comment on above: Order Comment: Speci men Type: BLOOD SPECIMEN Ordering Facility: [facility] Address: [address] [place] [address] Performed By: #### 5 8410-2 #### [facility] CLIA [id number] [address] [place] Creatinine and Glomerular filtration rate.predicted panel (S/P/Bld) 110 mL/min/1.73m??? Normal >=60 [facility] Comment on above: Order Comment: Radha tony Type: BLOOD SPECIMEN Ordering Facility: [facility] Address: [address] [place] [address] Result Comment: Crissy mated Glomerular Filtration Rate [...] GFR. Performed By: #### 5 8410-2 #### [facility] CLIA [id number] [address] [place] [address] [place] Glucose [Mass/Vol] 130 mg/dL High 74-99 [facility] Comment on above: Order Comment: Radha tony Type: BLOOD SPECIMEN Ordering Facility: [facility] Address: [address] [place] [address] Result Comment: The [place] [employer] (ADA) provides guidance for cutoff [...] Standards of Medical Care in Diabetes 2016, [place] [employer]. Diabetes Care. 2016.39(Suppl 1). Performed By: #### 5 8410-2 #### [facility] CLIA [id number] 1 [place] [address] [place] Potassium [Moles/Vol] 3.5 mmol/L Low 3.7-5.1 [facility] Comment on above: Order Comment: Speci men Type: BLOOD SPECIMEN Ordering Facility: [facility] Address: [address] [place] [address] Performed By: #### 5 8410-2 #### [facility] CLIA [id number] [address] Sodium [Moles/Vol] 138 mmol/L Normal 136-144 [facility] Comment on above: Order Comment: Speci men Type: BLOOD SPECIMEN Ordering Facility: [facility] Address: [address] [place] [address] Performed By: #### 5 8410-2 #### [facility] CLIA [id number] [address] STATES [facility] Urea nitrogen [Mass/Vol] 6 mg/dL Low 7-21 [facility] Comment on above: Order Comment: Speci men Type: BLOOD SPECIMEN Ordering Facility: [facility] Address: [address] [place] [address] Performed By: #### 5 8410-2 #### [facility] CLIA [id number] [address] [facility] CBC panel Auto (Bld)on 09-02 Erythrocyte distribution width (RBC) [Ratio] 13.6 % Normal 11.5-15.0 [facility] Comment on above: Order Comment: Speci men Type: BLOOD SPECIMEN Ordering Facility: [facility] Address: [address] [place] [address] Performed By: #### 5 8410-2 #### [facility] CLIA [id number] [address] Hematocrit (Bld) [Volume fraction] 39.4 % Normal 36.0-46.0 [facility] Comment on above: Order Comment: Speci men Type: BLOOD SPECIMEN Ordering Facility: [facility] Address: [address] [place] [address] Performed By: #### 5 8410-2 #### [facility] CLIA [id number] [address] Hemoglobin (Bld) [Mass/Vol] 13.2 g/dL Normal 11.5-15.5 [facility] Comment on above: Order Comment: Speci men Type: BLOOD SPECIMEN Ordering Facility: [facility] Address: [address] [place] [address] Performed By: #### 5 8410-2 #### [facility] CLIA [id number] [address] MCH (RBC) [Entitic mass] 26.6 pg Normal 26.0-34.0 [facility] Comment on above: Order Comment: Speci men Type: BLOOD SPECIMEN Ordering Facility: [facility] Address: [address] [place] [address] Performed By: #### 5 8410-2 #### [facility] CLIA [id number] [address] MCHC (RBC) [Mass/Vol] 33.5 g/dL Normal 30.5-36.0 [facility] Comment on above: Order Comment: Speci men Type: BLOOD SPECIMEN Ordering Facility: [facility] Address: [address] [place] [address] Performed By: #### 5 8410-2 #### [facility] CLIA [id number] [address] MCV (RBC) [Entitic vol] 79.4 fL Low 80.0-100.0 [facility] Comment on above: Order Comment: Speci men Type: BLOOD SPECIMEN Ordering Facility: [facility] Address: [address] [place] [address] Performed By: #### 5 8410-2 #### [facility] CLIA [id number] [address] Nucleated RBC (Bld) [#/Vol] 10*3/uL Normal <0.01 [facility] Comment on above: Order Comment: Speci men Type: BLOOD SPECIMEN Ordering Facility: [facility] Address: [address] [place] [address] Performed By: #### 5 8410-2 #### [facility] CLIA [id number] [address] Platelet mean volume (Bld) [Entitic vol] 9.6 fL Normal 9.0-12.7 [facility] Comment on above: Order Comment: Speci men Type: BLOOD SPECIMEN Ordering Facility: [facility] Address: [address] [place] [address] Performed By: #### 5 8410-2 #### [facility] CLIA [id number] [address] [facility] Platelets (Bld) [#/Vol] 146 10*3/uL Low 150-400 [facility] Comment on above: Order Comment: Speci men Type: BLOOD SPECIMEN Ordering Facility: [facility] Address: [address] [place] [address] Result Comment: No c lot detected. Performed By: #### 5 8410-2 #### [facility] CLIA [id number] [address] RBC (Bld) [#/Vol] 4.96 10*6/uL Normal 3.90-5.20 [facility] Comment on above: Order Comment: Speci men Type: BLOOD SPECIMEN Ordering Facility: [facility] Address: [address] [place] [address] Performed By: #### 5 8410-2 #### [facility] CLIA [id number] [address] [facility] WBC (Bld) [#/Vol] 13.08 10*3/uL High 3.70-11.00 [facility] Comment on above: Order Comment: Speci men Type: BLOOD SPECIMEN Ordering Facility: [facility] Address: [address] [place] [address] Performed By: #### 5 8410-2 #### [facility] CLIA [id number] [address] CONFIRM BLOOD TYPEon 024 ABO O Normal [facility] Comment on above: Order Comment: Speci men Type: BLOOD SPECIMEN Ordering Facility: [facility] Address: [address] [place] [id number] Performed By: #### 5 8410-2 #### [facility] CLIA [id number] [address] Rh Nom (Bld) Positive Normal [facility] Comment on above: Order Comment: Speci men Type: BLOOD SPECIMEN Ordering Facility: [facility] Address: [address] [place] [address] Performed By: #### 5 8410-2 #### [facility] CLIA [id number] [address] CONSULTon 09-03-2023 CONSULT HNO ID: [id number] Author: NATO RIVERA MD Service: Clinical Cardiology [...] anxiety Prior cardiac hx: - Severe CAD ([facility] showed severe single vessel proximal to mid LAD diffuse disease in [place], sent to [facility] for consideration of high risk PCI [...] CC echocardiographic exam performed on 03/10/2017 (ECHO) [facility] 12/2017: 1. Single-vessel coronary artery disease with a long segment of severe diffuse narrowing in the proximal and midportion of the LAD. Another stenosis in the distal portion. 2. Normal right and circumflex coronary arteries. 3. Normal left heart filling pressures. 4. No evidence of aortic stenosis. 5. The patient will be transferred to [facility] for assessment of myocardial viability and [...] 11.2 06/08/19 (more content not included)... Normal [facility] HIGH SENSITIVITY TROPONIN T (SECOND)on 09-03-2023 Troponin T.cardiac High sensitivity method [Mass/Vol] 51 ng/L High <12 [facility] Comment on above: Order Comment: Speci men Type: BLOOD SPECIMEN Ordering Facility: [facility] Address: [address] [place] [address] Result Comment: When assessing risk for acute [...] 30 day MACE. Performed By: #### L [id number] #### [facility] CLIA [id number] [address] [facility] HIGH SENSITIVITY TROPONIN T (THIRD) 3 HRS AFTER INITIALon 09-03-2023 Troponin T.cardiac High sensitivity method [Mass/Vol] 63 ng/L High <12 [facility] Comment on above: Order Comment: Speci men Type: BLOOD SPECIMEN Ordering Facility: [facility] Address: [address] [place] [address] Result Comment: When assessing risk for acute [...] MACE. Performed By: #### 5 8410-2 #### [facility] CLIA [id number] [address] OPERATIVE NOon 09-03-2023 OPERATIVE NO HNO ID: [id number] Author: DIYA MAY MD Service: Orthopaedic Surgery Author Type: Physician Type: Operative Report Filed: 09/03/2023 17:02 Note Text: OPERATIVE/PROCEDURE REPORT LOG ID: [id number] SURGERY/PROCEDURE DATE: 09/03/2023 INCISION/PROCEDURE START TIME: 12:41 PM INCISION CLOSE/PROCEDURE END TIME: 1:21 PM SURGEON(S)/PROCEDURALIST( S) AND MARBLE SUPERVISOR(S): Surgeon(s) and Role: * Diya May MD - Primary * Juancarlos Eldridge MD - Resident - Assisting * Jerry Murray MD - Resident - Assisting No Additional Staff PRE-OP/PRE-PROCEDURE DIAGNOSIS: 1) Right intertrochanteric femur fracture POST-OP/POST-PROCEDURE DIAGNOSIS: 1) Same SURGERY/PROCEDURE(S): 1) Insertion of a Right Hip Intramedullary Femoral Nail for an Intertrochanteric Femur Fracture (CPT 83284) ANESTHESIA: 1) Choice - Anesthesia Consult ANTIBIOTICS: 1) Ancef 2g IV Ancef, 1g IV Vancomycin ESTIMATED BLOOD LOSS: 1) 100 CC SPECIMENS: 1) None CLINICAL INDICATIONS: 53 year old female presented to [facility] for evaluation after a fall. The patient [...] time-out was then conducted in accordance with [facility] policy. Incision along hip was [...] Implant Name Type Inv. Item Serial No. Border Guard Lot No. LRB No. Used Action NAIL TFN-ADVANCED 125D SHORT GREEN TITANIUM 170MM INTRAMEDULLARY CANNULATED - [id number] Nail NAIL TFN-ADVANCED 125D SHORT GREEN TITANIU (more content not included)... Normal [facility] THERAPY NTon 09-03-2023 THERAPY NT HNO ID: [id number] Author: LEWIS CARPIO OTR/Gian Service: Occupational Therapy Author Type: Occupational Therapist Type: Therapy (PT/OT/Speech/Resp) Filed: 09/03/2023 07:59 Note Text: OCCUPATIONAL THERAPY MISSED VISIT SERVICE DATE: 09/03/2023 SERVICE TIME: (P) 0759 ROOM: [place] [address] Patient not seen due to (P) Test / Procedure. OR today, will follow. SIGNATURE: LARRY Crocker/Gian PATIENT NAME: Trenton Jackson DATE: September 03, 2023 TIME: 7:59 AM Normal [facility] XR HIP 2V AP/LAT RTon 2023 XR HIP 2V AP/LAT RT * * *Final Report* * * DATE OF EXAM: Sep 03 2023 1:16PM [facility] 5280 - XR HIP 2V AP/LAT RT [...] reduction internal fixation right intertrochanteric femur fracture. Control Tower Operator: GEORGE Transcribe Date/Time: Sep 03 2023 1:33P Dictated by : JIMY ROMERO MD This examination was interpreted and the report reviewed and electronically signed by: JIMY ROMERO MD on Sep 03 2023 1:34PM EST [id number] [facility] XR PELVIS 1V APon 09-03-2023 XR [...] internal fixation of right intertrochanteric femur fracture. Control Tower Operator: [facility] Transcribe Date/Time: Sep 03 2023 2:42P Dictated by : JIMY ROMERO MD This examination was interpreted and the report reviewed and electronically signed by: JIMY ROMERO MD on Sep 03 2023 2:43PM EST [id number] [facility] ALLIED HEALTHon 09-02-2023 ALLIED HEALTH HNO ID: [id number] Author: TERE HORNER Chaplain Service: ? Author Type: Beauty Counselor Type: Allied Health Filed: 09/02/2023 11:46 Note Text: SPIRITUAL CARE PROGRESS NOTE SERVICE DATE: 09/02/2023 SERVICE TIME: 11:45 am Beauty Counselor called ED upon receiving page to inquire about family of patient. No family were present at the time. Should needs arise for patient or family, please call spiritual care. To contact the Spiritual Care Department: Please call [phone]. SIGNATURE: Chaplain Christiano PATIENT NAME: Trenton Jackson DATE: September 02, 2023 TIME: 11:45 AM PAGER/CONTACT #: [phone] Normal [facility] Absolute lymphocyte countOrd ered By: Griselda Christina on 09-02-2023 Lymphocytes Auto (Unsp spec) [#/Vol] 1.79 10*3/uL 0.83-4.51 [facility] Activated partial thrombopla stin time (aPTT) in platelet poor plasma by coagulation aOrdered By: Griselda Christina on 09-02-2023 aPTT Coag (PPP) [Time] 25.5 s 24.1-36.2 [facility] Automated lymphocyte count a s percentage of total leukocytesOrdered By: Griselda Christina on 09-02-2023 Lymphocytes/100 WBC Auto (Unsp spec) 18.9 % 19-41 [facility] Basophil percentageOrdered B y: Griselda Christina on 09-02-2023 Basophils/100 WBC (Bld) 0.7 % 0-1 [facility] Chloride [Moles/Vol] 102 mmol/L 98-107 [facility] Eosinophils/100 WBC (Bld) 3.9 % 0-5 [facility] Glucose [Mass/Vol] 306 mg/dL 74-106 [facility] Comment on above: Glucose result great er than or equal to 200 mg/dLsuggests DIABETES MELLITUS per A.D.A. criteria. Hemoglobin (Bld) [Mass/Vol] 14.4 g/dL 12.0-15.0 [facility] Monocytes/100 WBC (Bld) 5.2 % 0-10 [facility] Neutrophils (Bld) [#/Vol] 6.5 10*3/uL 2.0-7.7 [facility] Neutrophils/100 WBC (Bld) 69.1 % 47-70 [facility] Potassium [Moles/Vol] 3.3 mmol/L 3.5-5.1 [facility] Sodium [Moles/Vol] 136 mmol/L 136-145 [facility] WBC (Bld) [#/Vol] 9.5 10*3/uL 4.4-11.0 [facility] CBC panel Auto (Bld)on 09-01 Erythrocyte distribution width (RBC) [Ratio] 13.6 % Normal 11.5-15.0 [facility] Comment on above: Order Comment: Speci men Type: BLOOD SPECIMEN Ordering Facility: [facility] Address: [address] [place] [address] Performed By: #### 2 4321-2 #### [facility] CLIA [id number] [address] Hematocrit (Bld) [Volume fraction] 42.9 % Normal 36.0-46.0 [facility] Comment on above: Order Comment: Speci men Type: BLOOD SPECIMEN Ordering Facility: [facility] Address: [address] [place] [address] Performed By: #### 2 4321-2 #### [facility] CLIA [id number] [address] Hemoglobin (Bld) [Mass/Vol] 14.4 g/dL Normal 11.5-15.5 [facility] Comment on above: Order Comment: Speci men Type: BLOOD SPECIMEN Ordering Facility: [facility] Address: [address] [place] [address] Performed By: #### 2 4321-2 #### [facility] CLIA [id number] [address] MCH (RBC) [Entitic mass] 26.7 pg Normal 26.0-34.0 [facility] Comment on above: Order Comment: Speci men Type: BLOOD SPECIMEN Ordering Facility: [facility] Address: [address] [place] [address] Performed By: #### 2 4321-2 #### [employer] [facility] CLIA [id number] [address] MCHC (RBC) [Mass/Vol] 33.6 g/dL Normal 30.5-36.0 [facility] Comment on above: Order Comment: Speci men Type: BLOOD SPECIMEN Ordering Facility: [facility] Address: [address] [place] [address] Performed By: #### 2 4321-2 #### [facility] CLIA [id number] [address] [place] MCV (RBC) [Entitic vol] 79.4 fL Low 80.0-100.0 [facility] Comment on above: Order Comment: Speci men Type: BLOOD SPECIMEN Ordering Facility: [facility] Address: [address] [place] [address] Performed By: #### 2 4321-2 #### [facility] CLIA [id number] [address] Nucleated RBC (Bld) [#/Vol] 10*3/uL Normal <0.01 [facility] Comment on above: Order Comment: Speci men Type: BLOOD SPECIMEN Ordering Facility: [facility] Address: [address] [place] [address] Performed By: #### 2 4321-2 #### [facility] CLIA [id number] [address] [place] Platelet mean volume (Bld) [Entitic vol] 9.2 fL Normal 9.0-12.7 [facility] Comment on above: Order Comment: Speci men Type: BLOOD SPECIMEN Ordering Facility: [facility] Address: [address] [place] [address] Performed By: #### 2 1-2 #### [facility] CLIA [id number] [address] [place] Platelets (Bld) [#/Vol] 172 10*3/uL Normal 150-400 [facility] Comment on above: Order Comment: Speci men Type: BLOOD SPECIMEN Ordering Facility: [facility] Address: [address] [place] [address] Performed By: #### 2 1-2 #### [facility] CLIA [id number] [address] [place] RBC (Bld) [#/Vol] 5.40 10*6/uL High 3.90-5.20 [facility] Comment on above: Order Comment: Speci men Type: BLOOD SPECIMEN Ordering Facility: [facility] Address: [address] [place] [address] Performed By: #### 2 4321-2 #### [facility] CLIA [id number] [address] OF [facility] WBC (Bld) [#/Vol] 15.50 10*3/uL High 3.70-11.00 [facility] Comment on above: Order Comment: Speci men Type: BLOOD SPECIMEN Ordering Facility: [facility] Address: [address] [place] [address] Performed By: #### 2 4321-2 #### [facility] CLIA [id number] [address] CONSULTon 09-02-2023 CONSULT HNO ID: [id number] Author: DIYA MAY MD Service: Orthopaedic Surgery [...] 11:07 AM ORTHOPAEDIC SURGERY CONSULT Pt: TRENTON JACKOSN Physician consulted: Dr. May Chief Complaint: Right Hip Pain HPI: 53 year old female presented as a level II trauma activation to [facility] as a transfer from [place] ED on 09/02/2023 for evaluation of right hip pain. The patient endorses a ground level fall in her bathroom with subsequent immediate and severe right hip pain and the inability to ambulate. She was brought to [place] ED and was found to have a [...] units 3 (more content not included)... Normal [facility] CT ABD/PEL W IVCONon 024 CT ABD/PEL W IVCON * * *Final Report* * * DATE OF EXAM: Sep 02 2023 11:41AM [facility] 0530 - CT ABD/PEL W IVCON [...] and pelvis studies, the most recent 04/08/2019, OSH pelvis and right hip radiographs 09/02/2023. RESULT: [...] thorax: A CT chest is reported separately. Civil Engineer (topogram) images: No additional findings. IMPRESSION: Right-sided [...] be communicated with the ordering provider via [employer] staff message or phone message by [employer] within 2 business days of report finalization. --END OF FINDING-- Control Tower Operator: GEORGE Transcribe Date/Time: Sep 02 2023 12:26P Dictated by : TORITO PARK MD This examination was interpreted and the report reviewed and electronically signed by: TORITO PARK MD on Sep 02 2023 1:00PM EST [id number] ACTIONABLE Invalid Interpretation Code [facility] CT BRAIN WO IVCONon 09-02-19 CT BRAIN WO IVCON * * *Final Report* * * DATE OF EXAM: Sep 02 2023 11:39AM [facility] 0504 - CT BRAIN WO IVCON / PROCEDURE REASON: Head trauma, coagulopathy (Age 19-64y) * * * * Physician Interpretation * * * * EXAMINATION: CT CERVICAL SPINE WO IVCON, CT BRAIN WO IVCON CLINICAL HISTORY: Spine fracture, cervical, traumatic (accession [id number]), Head trauma, coagulopathy (Age 19-64y) (accession [id number]) TECHNIQUE: Serial axial images without IV contrast [...] sinuses and mastoid air cells are clear. Civil Engineer (topogram) images: Unremarkable. CERVICAL SPINE: Counting reference: Craniocervical junction. Anatomic Variants: None. Civil Engineer (topogram) images: Unremarkable. Alignment: Alignment is anatomic. [...] vertebrae with counting from the craniocervical junction. Control Tower Operator: PSCB Transcribe Date/Time: Sep 02 2023 11:52A Dictated by : RAYMUNDO MULLINS MD This examination was interpreted and the report reviewed and electronically signed by: RAYMUNDO MULLINS MD on Sep 02 2023 12:19PM EST [id number] Normal [facility] CT CERVICAL SPINE WO IVCONon 09-02-2023 CT CERVICAL SPINE WO IVCON * * *Final Report* * * DATE OF EXAM: Sep 02 2023 11:39AM [facility] 0505 - CT CERVICAL SPINE WO IVCON / PROCEDURE REASON: Spine fracture, cervical, traumatic * * * * Physician Interpretation * * * * EXAMINATION: CT CERVICAL SPINE WO IVCON, CT BRAIN WO IVCON CLINICAL HISTORY: Spine fracture, cervical, traumatic (accession [id number]), Head trauma, coagulopathy (Age 19-64y) (accession [id number]) TECHNIQUE: Serial axial images without IV contrast [...] sinuses and mastoid air cells are clear. Civil Engineer (topogram) images: Unremarkable. CERVICAL SPINE: Counting reference: Craniocervical junction. Anatomic Variants: None. Civil Engineer (topogram) images: Unremarkable. Alignment: Alignment is anatomic. [...] vertebrae with counting from the craniocervical junction. Control Tower Operator: GEORGE Transcribe Date/Time: Sep 02 2023 11:52A Dictated by : RAYMUNDO MULLINS MD This examination was interpreted and the report reviewed and electronically signed by: RAYMUNDO MULLINS MD on Sep 02 2023 12:19PM EST [id number] Normal [facility] CT CHEST W IVCONon 4 CT CHEST W IVCON * * *Final Report* * * DATE OF EXAM: Sep 02 2023 11:41AM [facility] 0539 - CT CHEST W IVCON [...] abdomen: A CT abdomen is reported separately. Civil Engineer (topogram) images: No additional findings. IMPRESSION: Findings suggesting mild pulmonary edema. Similar small and mild prominent mediastinal and hilar lymph nodes considered likely reactive. Appropriate follow-up is recommended as indicated. Similar nodular densities seen in profile with the left major fissure. Small pericardial effusion. Stable left pericardial cyst. Control Tower Operator: GEORGE Transcribe Date/Time: Sep 02 2023 12:42P Dictated by : TORITO PARK MD This examination was interpreted and the report reviewed and electronically signed by: TORITO PARK MD on Sep 02 2023 1:00PM EST [id number] Normal [facility] Comprehensive metabolic 2000 panelon 09-02-2023 Albumin [Mass/Vol] 3.5 g/dL Low 3.9-4.9 [facility] Comment on above: Order Comment: Speci men Type: BLOOD SPECIMEN Ordering Facility: [facility] Address: [address] [place] [address] Performed By: #### 5 8410-2 #### [facility] CLIA [id number] [address] [place] [facility] ALP [Catalytic activity/Vol] 119 U/L Normal 34-123 [facility] Comment on above: Order Comment: Speci men Type: BLOOD SPECIMEN Ordering Facility: [facility] Address: [address] [place] [address] Performed By: #### 5 8410-2 #### [facility] CLIA [id number] [address] [place] ALT With P-5'-P [Catalytic activity/Vol] 20 U/L Normal 7-38 [facility] Comment on above: Order Comment: Speci men Type: BLOOD SPECIMEN Ordering Facility: [facility] Address: [address] [place] [address] Performed By: #### 5 8410-2 #### [facility] CLIA [id number] [address] STATES OF [facility] Anion gap [Moles/Vol] 13 mmol/L Normal 9-18 [facility] Comment on above: Order Comment: Speci men Type: BLOOD SPECIMEN Ordering Facility: [facility] Address: [address] [place] [address] Performed By: #### 5 8410-2 #### [facility] CLIA [id number] [address] [place] With P-5'-P [Catalytic activity/Vol] 21 U/L Normal 13-35 [facility] Comment on above: Order Comment: Speci men Type: BLOOD SPECIMEN Ordering Facility: [facility] Address: [address] [place] [address] Performed By: #### 5 8410-2 #### [facility] CLIA [id number] [address] [place] [address] [place] Bilirubin [Mass/Vol] 0.8 mg/dL Normal 0.2-1.3 [facility] Comment on above: Order Comment: Speci men Type: BLOOD SPECIMEN Ordering Facility: [facility] Address: [address] [place] [address] Performed By: #### 5 8410-2 #### [facility] CLIA [id number] [address] [place] Calcium [Mass/Vol] 9.0 mg/dL Normal 8.5-10.2 [facility] Comment on above: Order Comment: Speci men Type: BLOOD SPECIMEN Ordering Facility: [facility] Address: [address] [place] [address] Performed By: #### 5 8410-2 #### [facility] CLIA [id number] [address] [place] [address] [place] Chloride [Moles/Vol] 94 mmol/L Low 97-105 [facility] Comment on above: Order Comment: Speci men Type: BLOOD SPECIMEN Ordering Facility: [facility] Address: [address] [place] [address] Performed By: #### 5 8410-2 #### [facility] CLIA [id number] 1 [place] [address] [place] CO2 [Moles/Vol] 28 mmol/L Normal 22-30 [facility] Comment on above: Order Comment: Speci men Type: BLOOD SPECIMEN Ordering Facility: [facility] Address: [address] [place] [address] Performed By: #### 5 8410-2 #### [facility] CLIA [id number] [address] STATES OF [facility] Creatinine [Mass/Vol] 0.56 mg/dL Low 0.58-0.96 [facility] Comment on above: Order Comment: Speci men Type: BLOOD SPECIMEN Ordering Facility: [facility] Address: [address] [place] [address] Performed By: #### 5 8410-2 #### [facility] CLIA [id number] [address] Creatinine and Glomerular filtration rate.predicted panel (S/P/Bld) 110 mL/min/1.73m??? Normal >=60 [facility] Comment on above: Order Comment: Speci men Type: BLOOD SPECIMEN Ordering Facility: [facility] Address: [address] [place] [address] Result Comment: Crissy mated Glomerular Filtration Rate [...] GFR. Performed By: #### 5 8410-2 #### [facility] CLIA [id number] [address] [place] [address] [place] Glucose [Mass/Vol] 312 mg/dL High 74-99 [facility] Comment on above: Order Comment: Speci men Type: BLOOD SPECIMEN Ordering Facility: [facility] Address: [address] [place] [address] Result Comment: The [place] [employer] (ADA) provides guidance for cutoff [...] Standards of Medical Care in Diabetes 2016, [place] [employer]. Diabetes Care. 2016.39(Suppl 1). Performed By: #### 5 8410-2 #### [facility] CLIA [id number] 1 [place] [address] [place] Potassium [Moles/Vol] 3.7 mmol/L Normal 3.7-5.1 [facility] Comment on above: Order Comment: Speci men Type: BLOOD SPECIMEN Ordering Facility: [facility] Address: [address] [place] [address] Performed By: #### 5 8410-2 #### [facility] CLIA [id number] 1 [place] [address] [place] Protein [Mass/Vol] 7.2 g/dL Normal 6.3-8.0 [facility] Comment on above: Order Comment: Speci men Type: BLOOD SPECIMEN Ordering Facility: [facility] Address: [address] [place] [address] Performed By: #### 5 8410-2 #### [facility] CLIA [id number] [address] [place] Sodium [Moles/Vol] 135 mmol/L Low 136-144 [facility] Comment on above: Order Comment: Speci men Type: BLOOD SPECIMEN Ordering Facility: [facility] Address: [address] [place] [address] Performed By: #### 5 8410-2 #### [facility] CLIA [id number] 1 [place] [address] [place] Urea nitrogen [Mass/Vol] 5 mg/dL Low 7-21 [facility] Comment on above: Order Comment: Speci men Type: BLOOD SPECIMEN Ordering Facility: [facility] Address: [address] [place] [address] Performed By: #### 5 8410-2 #### [facility] CLIA [id number] [address] [place] [address] [place] Determination of erythrocyte mean corpuscular volume (MCV)Ordered By: Griselda Christina on 09-02-2023 MCV (RBC) [Entitic vol] 79.9 fL 81-99 [facility] ECG COMPLETEon 09-02-2023 ECG COMPLETE Ventricular Rate : 1 09 BPM Atrial Rate : 109 BPM P-R Interval : 168 ms QRS Duration : 128 ms Q-T Interval : 364 ms QTC Calculation(Bazett) : 490 ms Calculated P [place] : 46 degrees Calculated R [place] : -45 degrees Calculated T [place] : 97 degrees SINUS TACHYCARDIA POSSIBLE LEFT ATRIAL ENLARGEMENT LEFT AXIS DEVIATION LEFT VENTRICULAR HYPERTROPHY WITH QRS WIDENING ( Paxton product ) CANNOT RULE OUT SEPTAL INFARCT , AGE UNDETERMINED T WAVE ABNORMALITY, CONSIDER LATERAL ISCHEMIA ABNORMAL ECG NO PREVIOUS ECGS AVAILABLE Confirmed by WELLINGTON SPANN ([id number]) on 02/27/2024 5:10:44 PM NAME : TRENTON JACKSON PID : [id number] : 1970 Gender : Female Race : ORD : [id number] Procedure Date : Sep 02 2023 12:10:42 Edit Date : Feb 27 2024 17:10:48 Diagnosis: SINUS TACHYCARDIA POSSIBLE LEFT ATRIAL ENLARGEMENT LEFT AXIS DEVIATION LEFT VENTRICULAR HYPERTROPHY WITH QRS WIDENING ( Brian product ) CANNOT RULE OUT SEPTAL INFARCT , AGE UNDETERMINED T WAVE ABNORMALITY, CONSIDER LATERAL ISCHEMIA ABNORMAL ECG NO PREVIOUS ECGS AVAILABLE Confirmed by WELLINGTON SPANN ([id number]) on 02/27/2024 5:10:44 PM Test Reason : Chest Pain Location : 4 : [facility] EM Overread By : WELLINGTON SPANN Edited By : WELLINGTON SPANN Referred By : , Acquired by : VIKTOR ART [facility] ED NOTEon 09-02-2023 ED NOTE HNO ID: [id number] Author: TESS LA RN Service: Emergency Medicine Author Type: Registered Nurse Type: ED Notes Filed: 09/02/2023 13:10 Note Text: Unable to obtain blood draw, aware. [facility] ED NOTE HNO ID: [id number] Author: TESS LA RN Service: Emergency Medicine Author Type: Registered Nurse Type: ED Notes Filed: 09/02/2023 12:53 Note Text: Resident aware of need for pain and nausea meds per pt request Normal [facility] ED NOTE HNO ID: [id number] Author: TESS LA RN Service: Emergency Medicine Author Type: Registered Nurse Type: ED Notes Filed: 09/02/2023 12:19 Note Text: Trauma rns unable to obtain blood, US verified RN able to place US PIV at this time. Normal [facility] ED NOTE HNO ID: [id number] Author: TESS LA, CHAYITO Service: Emergency Medicine Author Type: Registered Nurse Type: ED Notes Filed: 09/02/2023 11:56 Note Text: Ortho MD at bedside Normal [facility] ED NOTE HNO ID: [id number] Author: MILADIS ESPINOSA, CHAYITO Service: ? Author Type: Registered Nurse Type: ED Notes Filed: 09/02/2023 11:38 Note Text: Bed: 19-ED Expected date: Expected time: Means of arrival: Comments: T2 Normal [facility] ED NOTE HNO ID: [id number] Author: PENNIE MEDINA RN Service: Emergency Medicine Author Type: Registered Nurse Type: ED Notes Filed: 09/02/2023 11:22 Note Text: To CT Normal [facility] ED NOTE HNO ID: [id number] Author: PENNIE MEDINA RN Service: Emergency Medicine Author Type: Registered Nurse Type: ED Notes Filed: 09/02/2023 11:22 Note Text: Blood bank and OR called Normal [facility] Erythrocyte distribution wid th ratioOrdered By: Griselda Christina on 09-02-2023 Erythrocyte distribution width (RBC) [Ratio] 13.7 % 11.6-14.6 [facility] Erythrocyte distribution wid th standard deviationOrdered By: Griselda Christina on 09-02-2023 Erythrocyte distribution width (RBC) [Entitic vol] 39.7 fL 35.1-43.9 [facility] Ethanol SerPl-mCncon 024 Ethanol [Mass/Vol] mg/dL Normal <11 [facility] Comment on above: Order Comment: Speci men Type: BLOOD SPECIMEN Ordering Facility: [facility] Address: [address] [place] [address] Performed By: #### 5 8410-2 #### [facility] CLIA [id number] [address] HCG QUAL BLDon 09-02-2023 HCG, QUALITATIVE Negative Normal Negative [facility] Comment on above: Order Comment: Speci men Type: BLOOD SPECIMEN Ordering Facility: [facility] Address: [address] [place] [address] Performed By: #### 2 4321-2 #### [facility] CLIA [id number] [address] HIGH SENSITIVITY TROPONIN T (INITIAL)on 09-02-2023 Troponin T.cardiac High sensitivity method [Mass/Vol] 40 ng/L High <12 [facility] Comment on above: Order Comment: Speci men Type: BLOOD SPECIMEN Ordering Facility: [facility] Address: [address] [place] [address] Result Comment: When assessing risk for acute [...] MACE. 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 Per EMS, patient feel on the wet bathroom and landed on her right hip. GCS at Scene was 15. On arrival, patient is moaning in pain. She is neurologically intact and HDS. She has obvious pain to the right hip. At [place], CXR and PXR showed chronic CHF and [...] No o (more content not included)... Normal [facility] Hematocrit Auto (Bld) [Volum e fraction]Ordered By: Griselda Christina on 09-02-2023 Hematocrit (Bld) [Volume fraction] 44.5 % 37-47 [facility] Immature granulocytes/100 WB C Auto (Bld)Ordered By: Griselda Christina on 09-02-2023 Immature granulocytes/100 WBC (Bld) 2.200 % 0.0-0.9 [facility] Comment on above: IG% - Immature Granu locytes (promyelocytes, myelocytes and metamyelocytes) > 1% indicates that a LEFT SHIFT is Present. Laboratory - Chemistry and C hemistry - challengeOrdered By: Griselda Christina on 09-02-2023 CO2 [Moles/Vol] 28.0 mmol/L 21.0-32.0 [facility] Urea nitrogen/Creatinine [Mass ratio] 6.6 mg/mg 10-20 [facility] Laboratory - CoagulationOrde red By: Griselda Christina on 09-02-2023 INR Coag (Bld) [Relative time] 0.9 {INR} [facility] PT Coag (PPP) [Time] 11.8 s 11.7-14.9 [facility] Laboratory - Hematology and Cell countsOrdered By: Griselda Christina on 09-02-2023 MCH (RBC) [Entitic mass] 25.9 pg 27.0-32.0 [facility] MCHC (RBC) [Mass/Vol] 32.4 g/dL 32-36 [facility] Nucleated RBC/100 WBC (Bld) [Ratio] 0 % 0-5 [facility] Platelet mean volume (Bld) [Entitic vol] 9.3 fL 6.2-12.0 [facility] Platelets (Bld) [#/Vol] 191 10*3/uL 150-450 [facility] Lipase SerPl-cCncon 09-02-19 24 Lipase [Catalytic activity/Vol] 17 U/L Normal 16-61 [facility] Comment on above: Order Comment: Speci men Type: BLOOD SPECIMEN Ordering Facility: [facility] Address: [address] [place] [address] Performed By: #### 5 8410-2 #### [facility] CLIA [id number] 1 [place] [address] [place] NT-proBNP SerPl-mCncon 09-01 Natriuretic peptide.B prohormone N-Terminal [Mass/Vol] 4315 pg/mL High <125 [facility] Comment on above: Order Comment: Radha tony Type: BLOOD SPECIMEN Ordering Facility: [facility] Address: [address] [place] [address] [place] [address] Performed By: #### 5 8410-2 #### [facility] CLIA [id number] [address] NURSING PROGon 09-02-2023 NURSING PROG HNO ID: [id number] Author: DANI LAGOS, RN Service: Nursing Author Type: Registered Nurse Type: Nursing Progress Note Filed: 09/02/2023 14:35 Note Text: Other: Dr. Kingston made aware that second troponin unable to be obtained due to multiple sticks and IV unable to draw any blood. Normal [facility] No Panel InformationOrdered By: Griselda Christina on 09-02-2023 Estimated Creatinine Clearance Calc 97.60 ml/min [facility] Estimated GFR (MDRD) Amer 102 mL/min >60 [facility] Comment on above: GFR Calc Estimated GFR (MDRD) Non-Af Amer 85 mL/min >60 [facility] Comment on above: Non- GFR Calc PT panel Coag (PPP)on 2023 INR Coag (PPP) [Relative time] 1.0 {INR} Normal 0.9-1.3 [facility] Comment on above: Order Comment: Radha tony Type: BLOOD SPECIMEN Ordering Facility: [facility] Address: [address] [place] [address] Result Comment: Charissa min K Antagonist (VKA) Therapeutic Range: INR 2 to 3 (Target INR of 2.5) Note: For patients treated with VKA drugs, such as warfarin, the [place] [employer] 2012 Guideline recommends [...] MATHEW, et al. Chest 2012, 141:7S-47S Sampson SOMMERS et al. [facility] 2017, 70: 252-289 Performed By: #### 3 4528-0, 89275-1 #### [facility] CLIA [id number] [address] [place] PT Coag (PPP) [Time] 10.3 s Normal 9.7-13.0 [facility] Comment on above: Order Comment: Speci men Type: BLOOD SPECIMEN Ordering Facility: [facility] Address: [address] [place] [address] [place] [address] Performed By: #### 3 4528-0, 38225-4 #### [facility] CLIA [id number] [address] [place] [id number] [place] RBC Auto (Bld) [#/Vol]Ordere d By: Griselda Christina on 09-02-2023 RBC (Bld) [#/Vol] 5.57 10*6/uL 4.2-5.4 [facility] Serum or plasma calcium xiomara urement (mass/volume)Ordered By: Griselda Christina on 09-02-2023 Calcium [Mass/Vol] 9.1 mg/dL 8.5-10.1 [facility] Serum or plasma creatinine m easurement (mass/volume)Ordered By: Griselda Christina on 09-02-2023 Creatinine [Mass/Vol] 0.76 mg/dL 0.55-1.02 [facility] Comment on above: The validity of the calculated GFR & GFRAA in patients over 70 years has not been determined. Clinical correlation is essential. Serum or plasma urea nitroge n measurement (mass/volume)Ordered By: Griselda Christina on 09-02-2023 Urea nitrogen [Mass/Vol] 5 mg/dL 7-18 [facility] TOX SCREEN ROUT URon 024 Amphetamines Confirm (U) [Mass/Vol] Negative Normal Negative [facility] Comment on above: Order Comment: Speci men Type: URINE SPECIMEN Ordering Facility: [facility] Address: [facility] [place] [address] Result Comment: Cuto ff threshold at 1000 ng/mL. Performed By: #### U TOX2 #### [facility] CLIA [id number] [address] BARBITURATES, URINE Negative Normal Negative [facility] Comment on above: Order Comment: Speci men Type: URINE SPECIMEN Ordering Facility: [facility] Address: [address] [place] [address] Result Comment: Cuto ff threshold at 200 ng/mL. Performed By: #### U TOX2 #### [facility] CLIA [id number] [address] [place], UR Negative Normal Negative [facility] Comment on above: Order Comment: Speci men Type: URINE SPECIMEN Ordering Facility: [facility] Address: [address] [place] [address] Result Comment: Cuto ff threshold at 200 ng/mL. Performed By: #### U TOX2 #### [facility] CLIA [id number] [address] Cannabinoids Screen Ql (U) Positive Abnormal Negative [facility] Comment on above: Order Comment: Speci men Type: URINE SPECIMEN Ordering Facility: [facility] Address: [address] [place] [address] Result Comment: Cuto ff threshold at 50 ng/mL. Performed By: #### U TOX2 #### [facility] CLIA [id number] [address] [place] Cocaine Ql (U) Negative Normal Negative [facility] Comment on above: Order Comment: Speci men Type: URINE SPECIMEN Ordering Facility: [facility] Address: [address] [place] [address] Result Comment: Cuto ff threshold at 300 ng/mL. Performed By: #### U TOX2 #### [facility] CLIA [id number] [address] [place] Ethanol (U) [Mass/Vol] <11 Normal <11 [facility] Comment on above: Order Comment: Speci men Type: URINE SPECIMEN Ordering Facility: [facility] Address: [address] [place] [address] Performed By: #### U TOX2 #### [facility] CLIA [id number] [address] Opiates Screen Ql (U) Positive Abnormal Negative [facility] Comment on above: Order Comment: Speci men Type: URINE SPECIMEN Ordering Facility: [facility] Address: [address] [place] [address] Result Comment: Cuto ff threshold at 300 ng/mL. Performed By: #### U TOX2 #### [facility] CLIA [id number] [address] oxyCODONE cutoff Screen (U) [Mass/Vol] Negative Normal Negative [facility] Comment on above: Order Comment: Speci men Type: URINE SPECIMEN Ordering Facility: [facility] Address: [address] [place] [address] Result Comment: Cuto ff threshold at 100 ng/mL. Performed By: #### U TOX2 #### [facility] CLIA [id number] [address] Phencyclidine Ql (U) Negative Normal Negative [facility] Comment on above: Order Comment: Speci men Type: URINE SPECIMEN Ordering Facility: [facility] Address: [address] [place] [address] Result Comment: Cuto ff threshold at 25 ng/mL. Performed By: #### U TOX2 #### [facility] CLIA [id number] [address] OF [facility] TYPE + SCREENon 09-02-2023 ABO O Normal [facility] Comment on above: Order Comment: Speci men Type: BLOOD SPECIMEN Ordering Facility: [facility] Address: [address] [place] [address] Performed By: #### 5 8410-2 #### [facility] CLIA [id number] [address] HISTORICAL AB SCR STATUS Negative Normal [facility] Comment on above: Order Comment: Speci men Type: BLOOD SPECIMEN Ordering Facility: [facility] Address: [address] [place] [address] Performed By: #### 5 8410-2 #### [facility] CLIA [id number] [address] [place] Rh Nom (Bld) Positive Normal [facility] Comment on above: Order Comment: Speci men Type: BLOOD SPECIMEN Ordering Facility: [facility] Address: [address] [place] [address] Performed By: #### 5 8410-2 #### [facility] CLIA [id number] [address] TYPE AND SCREEN EXPIRATION 09/05/2023 23:59 Normal [facility] Comment on above: Order Comment: Speci men Type: BLOOD SPECIMEN Ordering Facility: [facility] Address: [address] [place] [address] Performed By: #### 5 8410-2 #### [facility] CLIA [id number] [address] OF [facility] Thin prep Papanicolaou smear with manual screeningOrdered By: Griselda Christina on 09-02-2023 Thin prep Papanicolaou smear with manual screening 6 5-15 [facility] Urinalysis complete panel (U )on 09-02-2023 Bacteria LM.HPF (Urine sed) [#/Area] Rare Abnormal None Seen [facility] Comment on above: Order Comment: Speci men Type: URINE SPECIMEN Ordering Facility: [facility] Address: [address] [place] [address] Performed By: #### 2 4356-8 #### [facility] CLIA [id number] [address] [place] Bilirubin Ql (U) Negative Normal Negative [facility] Comment on above: Order Comment: Speci men Type: URINE SPECIMEN Ordering Facility: [facility] Address: [address] [place] [address] Performed By: #### 2 4356-8 #### [facility] CLIA [id number] [address] [place] Clarity (Unsp spec) Clear Normal Clear [facility] Comment on above: Order Comment: Speci men Type: URINE SPECIMEN Ordering Facility: [facility] Address: [address] [place] [address] Performed By: #### 2 4356-8 #### [facility] CLIA [id number] [address] [place] Color (U) Light Yellow Normal yellow [facility] Comment on above: Order Comment: Speci men Type: URINE SPECIMEN Ordering Facility: [facility] Address: [address] [place] [address] Performed By: #### 2 4356-8 #### [facility] CLIA [id number] [address] [place] Glucose Test strip (U) [Mass/Vol] 4+ Abnormal Trace, Negative [facility] Comment on above: Order Comment: Speci men Type: URINE SPECIMEN Ordering Facility: [facility] Address: [address] [place] [address] Performed By: #### 2 4356-8 #### [facility] CLIA [id number] [address] [place] Hemoglobin Ql (U) 3+ Abnormal Negative, Trace [facility] Comment on above: Order Comment: Speci men Type: URINE SPECIMEN Ordering Facility: [facility] Address: [address] [place] [address] Performed By: #### 2 4356-8 #### [facility] [facility] CLIA [id number] [address] [place] Ketones Ql (U) Negative Normal Negative, Trace [facility] Comment on above: Order Comment: Speci men Type: URINE SPECIMEN Ordering Facility: [facility] Address: [address] [place] [address] Performed By: #### 2 4356-8 #### [facility] CLIA [id number] [address] Leukocyte esterase Test strip Ql (U) Negative Normal Negative, 25 Jennifer/uL [facility] Comment on above: Order Comment: Speci men Type: URINE SPECIMEN Ordering Facility: [facility] Address: [address] [place] [address] Performed By: #### 2 4356-8 #### [facility] CLIA [id number] [address] Nitrite Ql (U) Negative Normal Negative [facility] Comment on above: Order Comment: Speci men Type: URINE SPECIMEN Ordering Facility: [facility] Address: [address] [place] [address] Performed By: #### 2 4356-8 #### [facility] CLIA [id number] [address] pH (U) 6.5 [pH] Normal 5.0-8.0 [facility] Comment on above: Order Comment: Speci men Type: URINE SPECIMEN Ordering Facility: [facility] Address: [address] [place] [address] Performed By: #### 2 4356-8 #### [facility] CLIA [id number] [address] Protein (U) [Mass/Vol] 2+ Abnormal Trace , Negative [facility] Comment on above: Order Comment: Speci men Type: URINE SPECIMEN Ordering Facility: [facility] Address: [address] [place] [address] Performed By: #### 2 4356-8 #### [facility] CLIA [id number] [address] RBC LM.HPF (Urine sed) [#/Area] /[HPF] Abnormal 0-3 /HPF [facility] Comment on above: Order Comment: Speci men Type: URINE SPECIMEN Ordering Facility: [facility] Address: [address] [place] [address] Performed By: #### 2 4356-8 #### [facility] CLIA [id number] [address] [place] Specific gravity (U) [Rel density] >1.040 High 1.005-1.03 0 [facility] Comment on above: Order Comment: Speci men Type: URINE SPECIMEN Ordering Facility: [facility] Address: [address] [place] [address] Performed By: #### 2 4356-8 #### [facility] CLIA [id number] [address] [place] Urobilinogen Ql (U) Normal Normal Normal [facility] Comment on above: Order Comment: Speci men Type: URINE SPECIMEN Ordering Facility: [facility] Address: [address] [place] [address] Performed By: #### 2 4356-8 #### [facility] CLIA [id number] [address] WBC LM.HPF (Urine sed) [#/Area] 0-5 /HPF Normal 0-5 /HPF [facility] Comment on above: Order Comment: Speci men Type: URINE SPECIMEN Ordering Facility: [facility] Address: [address] [place] [address] Performed By: #### 2 4356-8 #### [facility] CLIA [id number] [address] [place] XR FEMUR 2V AP/LAT RTon 08-04 XR [...] angulated intratrochanteric fracture of the right hip Control Tower Operator: GEORGE Transcribe Date/Time: Sep 02 2023 5:30P Dictated by : MEKA TAYLOR MD This examination was interpreted and the report reviewed and electronically signed by: MEKA TAYLOR MD on Sep 02 2023 5:32PM EST [id number] Normal [facility] aPTT PPPon 09-02-2023 aPTT Coag (PPP) [Time] 26.2 s Normal 23.0-32.4 [facility] Comment on above: Order Comment: Speci men Type: BLOOD SPECIMEN Ordering Facility: [facility] Address: [address] [place] [address] Performed By: #### 3 4528-0, 74132-8 #### [facility] CLIA [id number] [address] OF [facility] Absolute lymphocyte countOrd ered By: Ananda Coyle on 06-19-2023 Lymphocytes Auto (Unsp spec) [#/Vol] 0.91 10*3/uL 0.83-4.51 [facility] Automated lymphocyte count a s percentage of total leukocytesOrdered By: Ananda Coyle on 06-19-2023 Lymphocytes/100 WBC Auto (Unsp spec) 8.1 % 19-41 [facility] Basophil percentageOrdered B y: Ananda Coyle on 06-19-2023 Basophils/100 WBC (Bld) 0.7 % 0-1 [facility] Chloride [Moles/Vol] 102 mmol/L 98-107 [facility] Eosinophils/100 WBC (Bld) 1.2 % 0-5 [facility] Glucose [Mass/Vol] 205 mg/dL 74-106 [facility] Comment on above: Glucose result great er than or equal to 200 mg/dLsuggests DIABETES MELLITUS per A.D.A. criteria. Hemoglobin (Bld) [Mass/Vol] 13.6 g/dL 12.0-15.0 [facility] Monocytes/100 WBC (Bld) 3.2 % 0-10 [facility] Neutrophils (Bld) [#/Vol] 9.7 10*3/uL 2.0-7.7 [facility] Neutrophils/100 WBC (Bld) 86.3 % 47-70 [facility] Potassium [Moles/Vol] 4.2 mmol/L 3.5-5.1 [facility] Sodium [Moles/Vol] 137 mmol/L 136-145 [facility] WBC (Bld) [#/Vol] 11.2 10*3/uL 4.4-11.0 [facility] Determination of erythrocyte mean corpuscular volume (MCV)Ordered By: Ananda Coyle on 06-19-2023 MCV (RBC) [Entitic vol] 81.2 fL 81-99 [facility] Erythrocyte distribution wid th ratioOrdered By: Ananda Coyle on 06-19-2023 Erythrocyte distribution width (RBC) [Ratio] 14.6 % 11.6-14.6 [facility] Erythrocyte distribution wid th standard deviationOrdered By: Ananda Coyle on 06-19-2023 Erythrocyte distribution width (RBC) [Entitic vol] 42.7 fL 35.1-43.9 [facility] Hematocrit Auto (Bld) [Volum e fraction]Ordered By: Ananda Coyle on 06-19-2023 Hematocrit (Bld) [Volume fraction] 42.7 % 37-47 [facility] Immature granulocytes/100 WB C Auto (Bld)Ordered By: Ananda Coyle on 06-19-2023 Immature granulocytes/100 WBC (Bld) 0.500 % 0.0-0.9 [facility] Comment on above: IG% - Immature Granu locytes (promyelocytes, myelocytes and metamyelocytes) > 1% indicates that a LEFT SHIFT is Present. Laboratory - Chemistry and C hemistry - challengeOrdered By: Ananda Coyle on 06-19-2023 CO2 [Moles/Vol] 27.0 mmol/L 21.0-32.0 [facility] Urea nitrogen/Creatinine [Mass ratio] 16.5 mg/mg 10-20 [facility] Laboratory - Hematology and Cell countsOrdered By: Ananda Coyle on 06-19-2023 MCH (RBC) [Entitic mass] 25.9 pg 27.0-32.0 [facility] MCHC (RBC) [Mass/Vol] 31.9 g/dL 32-36 [facility] Nucleated RBC/100 WBC (Bld) [Ratio] 0 % 0-5 [facility] Platelets (Bld) [#/Vol] 214 10*3/uL 150-450 [facility] No Panel InformationOrdered By: Ananda Coyle on 06-19-2023 Estimated Creatinine Clearance Calc 83.12 ml/min [facility] Estimated GFR (MDRD) Amer 91 mL/min >60 [facility] Comment on above: GFR Calc Estimated GFR (MDRD) Non-Af Amer 75 mL/min >60 [facility] Comment on above: Non- GFR Calc Platelet mean volume Marco-Ec ker (Bld) [Entitic vol]Ordered By: Ananda Coyle on 06-19-2023 Platelet mean volume (Bld) [Entitic vol] 9.9 fL 6.2-12.0 [facility] RBC Auto (Bld) [#/Vol]Ordere d By: Ananda Coyle on 06-19-2023 RBC (Bld) [#/Vol] 5.26 10*6/uL 4.2-5.4 [facility] Serum or plasma calcium xiomara urement (mass/volume)Ordered By: Ananda Coyle on 06-19-2023 Calcium [Mass/Vol] 9.6 mg/dL 8.5-10.1 [facility] Serum or plasma creatinine m easurement (mass/volume)Ordered By: Ananda Coyle on 06-19-2023 Creatinine [Mass/Vol] 0.85 mg/dL 0.55-1.02 [facility] Comment on above: The validity of the calculated GFR & GFRAA in patients over 70 years has not been determined. Clinical correlation is essential. Serum or plasma urea nitroge n measurement (mass/volume)Ordered By: Ananda Coyle on 06-19-2023 Urea nitrogen [Mass/Vol] 14 mg/dL 7-18 [facility] Thin prep Papanicolaou smear with manual screeningOrdered By: Ananda Coyle on 06-19-2023 Thin prep Papanicolaou smear with manual screening 8 5-15 [facility] Basophil percentageOrdered B y: Jeremy Alexander on 06-16-2023 Chloride [Moles/Vol] 105 mmol/L 98-107 [facility] Glucose [Mass/Vol] 65 mg/dL 74-106 [facility] Potassium [Moles/Vol] 3.7 mmol/L 3.5-5.1 [facility] Sodium [Moles/Vol] 139 mmol/L 136-145 [facility] Glucose Glucometer (BldC) [M ass/Vol]Ordered By: Jeremy Alexander on 06-16-2023 Glucose [Mass/Vol] 161 mg/dL 74-106 [facility] Comment on above: MANAGEMENT OF PATIEN T CARE PER NURSING PROTOCOL Laboratory - Chemistry and C hemistry - challengeOrdered By: Jeremy Alexander on 06-16-2023 CO2 [Moles/Vol] 27.0 mmol/L 21.0-32.0 [facility] Urea nitrogen/Creatinine [Mass ratio] 20.9 mg/mg 10-20 [facility] No Panel InformationOrdered By: Jeremy Alexander on 06-16-2023 Estimated Creatinine Clearance Calc 107.78 ml/min [facility] Estimated GFR (MDRD) Amer 119 mL/min >60 [facility] Comment on above: GFR Calc Estimated GFR (MDRD) Non-Af Amer 98 mL/min >60 [facility] Comment on above: Non- GFR Calc Serum or plasma calcium xiomara urement (mass/volume)Ordered By: Jeremy Alexander on 06-16-2023 Calcium [Mass/Vol] 8.9 mg/dL 8.5-10.1 [facility] Serum or plasma creatinine m easurement (mass/volume)Ordered By: Jeremy Alexander on 06-16-2023 Creatinine [Mass/Vol] 0.67 mg/dL 0.55-1.02 [facility] Comment on above: The validity of the calculated GFR & GFRAA in patients over 70 years has not been determined. Clinical correlation is essential. Serum or plasma urea nitroge n measurement (mass/volume)Ordered By: Jeremy Alexander on 06-16-2023 Urea nitrogen [Mass/Vol] 14 mg/dL 7-18 [facility] Thin prep Papanicolaou smear with manual screeningOrdered By: Jeremy Alexander on 06-16-2023 Thin prep Papanicolaou smear with manual screening 7 5-15 [facility] Absolute lymphocyte countOrd ered By: Jeremy Alexander on 06-15-2023 Lymphocytes Auto (Unsp spec) [#/Vol] 1.49 10*3/uL 0.83-4.51 [facility] Basophil percentageOrdered B y: Jeremy Alexander on 06-15-2023 Basophil percentage 4.9 mg/dL 2.5-4.9 [facility] Basophils/100 WBC (Bld) 0.8 % 0-1 [facility] Eosinophils/100 WBC (Bld) 5.7 % 0-5 [facility] Neutrophils (Bld) [#/Vol] 4.0 10*3/uL 2.0-7.7 [facility] Neutrophils/100 WBC (Bld) 61.2 % 47-70 [facility] WBC (Bld) [#/Vol] 6.5 10*3/uL 4.4-11.0 [facility] Blood erythrocytes count (nu mber/volume)Ordered By: Jeremy Alexander on 06-15-2023 RBC (Bld) [#/Vol] 4.70 10*6/uL 4.2-5.4 [facility] Blood hemoglobin measurement (mass/volume)Ordered By: Jeremy Alexander on 06-15-2023 Hemoglobin (Bld) [Mass/Vol] 12.0 g/dL 12.0-15.0 [facility] Blood lymphocytes/100 leukoc ytesOrdered By: Jeremy Alexander on 06-15-2023 Lymphocytes/100 WBC (Bld) 22.9 % 19-41 [facility] Blood monocytes/100 leukocyt esOrdered By: Jeremy Alexander on 06-15-2023 Monocytes/100 WBC (Bld) 8.9 % 0-10 [facility] Blood platelet mean volumeOr dered By: Jeremy Alexander on 06-15-2023 Platelet mean volume (Bld) [Entitic vol] 10.2 fL 6.2-12.0 [facility] Determination of erythrocyte mean corpuscular volume (MCV)Ordered By: Jeremy Alexander on 06-15-2023 MCV (RBC) [Entitic vol] 81.9 fL 81-99 [facility] Hematocrit Auto (Bld) [Volum e fraction]Ordered By: Jeremy Alexander on 06-15-2023 Hematocrit (Bld) [Volume fraction] 38.5 % 37-47 [facility] Laboratory - Chemistry and C hemistry - challengeOrdered By: Jeremy Alexander on 06-15-2023 Magnesium [Mass/Vol] 2.1 mg/dL 1.6-2.6 [facility] Laboratory - Hematology and Cell countsOrdered By: Jeremy Alexander on 06-15-2023 Erythrocyte distribution width (RBC) [Entitic vol] 41.6 fL 35.1-43.9 [facility] Erythrocyte distribution width (RBC) [Ratio] 14.1 % 11.6-14.6 [facility] Immature granulocytes/100 WBC (Bld) 0.500 % 0.0-0.9 [facility] Comment on above: IG% - Immature Granu locytes (promyelocytes, myelocytes and metamyelocytes) > 1% indicates that a LEFT SHIFT is Present. MCH (RBC) [Entitic mass] 25.5 pg 27.0-32.0 [facility] Nucleated RBC/100 WBC (Bld) [Ratio] 0 % 0-5 [facility] MCHC Auto (RBC) [Mass/Vol]Or dered By: Jeremy Alexander on 06-15-2023 MCHC (RBC) [Mass/Vol] 31.2 g/dL 32-36 [facility] No Panel InformationOrdered By: Jeremy Alexander on 06-15-2023 Troponin I High Sensitivity 17 pg/mL 3.0-54.0 [facility] Comment on above: Please Note: New Junie t Units and Gender Specific Reference Ranges. For more information see Policy Stat Procedure [place] High Sensitivity Troponin (TNIH) and attachments. Platelets bldOrdered By: Kenia Alexander on 06-15-2023 Platelets (Bld) [#/Vol] 201 10*3/uL 150-450 [facility] Absolute lymphocyte countOrd ered By: Riccardo Hillman on 06-12-2023 Lymphocytes Auto (Unsp spec) [#/Vol] 1.61 10*3/uL 0.83-4.51 [facility] Basophil percentageOrdered B y: Riccardo Hillman on 06-12-2023 Basophils/100 WBC (Bld) 1.0 % 0-1 [facility] Chloride [Moles/Vol] 103 mmol/L 98-107 [facility] Eosinophils/100 WBC (Bld) 3.9 % 0-5 [facility] Glucose [Mass/Vol] 272 mg/dL 74-106 [facility] Comment on above: Glucose result great er than or equal to 200 mg/dLsuggests DIABETES MELLITUS per A.D.A. criteria. Neutrophils (Bld) [#/Vol] 5.5 10*3/uL 2.0-7.7 [facility] Neutrophils/100 WBC (Bld) 68.5 % 47-70 [facility] Potassium [Moles/Vol] 4.0 mmol/L 3.5-5.1 [facility] Comment on above: Moderate Hemolysis, Result may be falsely increased. Sodium [Moles/Vol] 136 mmol/L 136-145 [facility] WBC (Bld) [#/Vol] 8.0 10*3/uL 4.4-11.0 [facility] Blood erythrocytes count (nu mber/volume)Ordered By: Riccardo Hillman on 06-12-2023 RBC (Bld) [#/Vol] 4.92 10*6/uL 4.2-5.4 [facility] Blood hemoglobin measurement (mass/volume)Ordered By: Riccardo Hillman on 06-12-2023 Hemoglobin (Bld) [Mass/Vol] 12.7 g/dL 12.0-15.0 [facility] Blood lymphocytes/100 leukoc ytesOrdered By: Riccardo Hillman on 06-12-2023 Lymphocytes/100 WBC (Bld) 20.3 % 19-41 [facility] Blood manual differential co mment interpretation (narrative result)Ordered By: Riccardo Hillman on 06-12-2023 Manual differential comment Main (Bld) [Interp] SCANNED [facility] Comment on above: AUTO DIFF OK Blood monocytes/100 leukocyt esOrdered By: Riccardo Hillman on 06-12-2023 Monocytes/100 WBC (Bld) 6.0 % 0-10 [facility] Blood platelet mean volumeOr dered By: Riccardo Hillman on 06-12-2023 Platelet mean volume (Bld) [Entitic vol] 11.3 fL 6.2-12.0 [facility] Determination of erythrocyte mean corpuscular volume (MCV)Ordered By: Riccardo Hillman on 06-12-2023 MCV (RBC) [Entitic vol] 81.3 fL 81-99 [facility] Hematocrit Auto (Bld) [Volum e fraction]Ordered By: Riccardo Hillman on 06-12-2023 Hematocrit (Bld) [Volume fraction] 40.0 % 37-47 [facility] INR in Blood by Coagulation assayOrdered By: Riccardo Hillman on 06-12-2023 INR Coag (Bld) [Relative time] 1.0 {INR} [facility] Laboratory - Chemistry and C hemistry - challengeOrdered By: Riccardo Hillman on 06-12-2023 CO2 [Moles/Vol] 27.0 mmol/L 21.0-32.0 [facility] Natriuretic peptide B (Bld) [Mass/Vol] 596.3 pg/mL 0-100 [facility] Urea nitrogen/Creatinine [Mass ratio] 12.0 mg/mg 10-20 [facility] Laboratory - CoagulationOrde red By: Riccardo Hillman on 06-12-2023 aPTT Coag (Bld) [Time] 27.5 s 24.1-36.2 [facility] PT Coag (PPP) [Time] 12.7 s 11.7-14.9 [facility] Laboratory - Hematology and Cell countsOrdered By: Riccardo Hillman on 06-12-2023 Erythrocyte distribution width (RBC) [Entitic vol] 41.9 fL 35.1-43.9 [facility] Erythrocyte distribution width (RBC) [Ratio] 14.4 % 11.6-14.6 [facility] Immature granulocytes/100 WBC (Bld) 0.300 % 0.0-0.9 [facility] Comment on above: IG% - Immature Granu locytes (promyelocytes, myelocytes and metamyelocytes) > 1% indicates that a LEFT SHIFT is Present. MCH (RBC) [Entitic mass] 25.8 pg 27.0-32.0 [facility] Nucleated RBC/100 WBC (Bld) [Ratio] 0 % 0-5 [facility] MCHC Auto (RBC) [Mass/Vol]Or dered By: Riccardo Hillman on 06-12-2023 MCHC (RBC) [Mass/Vol] 31.8 g/dL 32-36 [facility] No Panel InformationOrdered By: Riccardo Hillman on 06-12-2023 Estimated Creatinine Clearance Calc 140.88 ml/min [facility] Estimated GFR (MDRD) Amer 105 mL/min >60 [facility] Comment on above: GFR Calc Estimated GFR (MDRD) Non-Af Amer 86 mL/min >60 [facility] Comment on above: Non- GFR Calc Troponin I High Sensitivity 22 pg/mL 3.0-54.0 [facility] Comment on above: Please Note: New Junie t Units and Gender Specific Reference Ranges. For more information see Policy Stat Procedure [place] High Sensitivity Troponin (TNIH) and attachments. Platelets bldOrdered By: Guerita Hillman on 06-12-2023 Platelets (Bld) [#/Vol] 150 10*3/uL 150-450 [facility] Serum or plasma calcium xiomara urement (mass/volume)Ordered By: Riccardo Hillman on 06-12-2023 Calcium [Mass/Vol] 9.1 mg/dL 8.5-10.1 [facility] Serum or plasma creatinine m easurement (mass/volume)Ordered By: Riccardo Hillman on 06-12-2023 Creatinine [Mass/Vol] 0.75 mg/dL 0.55-1.02 [facility] Comment on above: The validity of the calculated GFR & GFRAA in patients over 70 years has not been determined. Clinical correlation is essential. Serum or plasma urea nitroge n measurement (mass/volume)Ordered By: Riccardo Hillman on 06-12-2023 Urea nitrogen [Mass/Vol] 9 mg/dL 7-18 [facility] Thin prep Papanicolaou smear with manual screeningOrdered By: Riccardo Hillman on 06-12-2023 Thin prep Papanicolaou smear with manual screening 6 5-15 [facility] Absolute lymphocyte countOrd ered By: Ananda Coyle on 05-26-2023 Lymphocytes Auto (Unsp spec) [#/Vol] 1.00 10*3/uL 0.83-4.51 [facility] Basophil percentageOrdered B y: Ananda Coyle on 05-26-2023 Basophils/100 WBC (Bld) 0.8 % 0-1 [facility] Chloride [Moles/Vol] 103 mmol/L 98-107 [facility] Eosinophils/100 WBC (Bld) 1.3 % 0-5 [facility] Glucose [Mass/Vol] 247 mg/dL 74-106 [facility] Comment on above: Glucose result great er than or equal to 200 mg/dLsuggests DIABETES MELLITUS per A.D.A. criteria. Neutrophils (Bld) [#/Vol] 7.5 10*3/uL 2.0-7.7 [facility] Neutrophils/100 WBC (Bld) 82.1 % 47-70 [facility] Potassium [Moles/Vol] 3.2 mmol/L 3.5-5.1 [facility] Sodium [Moles/Vol] 139 mmol/L 136-145 [facility] WBC (Bld) [#/Vol] 9.1 10*3/uL 4.4-11.0 [facility] Blood erythrocytes count (nu mber/volume)Ordered By: Ananda Coyle on 05-26-2023 RBC (Bld) [#/Vol] 5.34 10*6/uL 4.2-5.4 [facility] Blood hemoglobin measurement (mass/volume)Ordered By: Ananda Coyle on 05-26-2023 Hemoglobin (Bld) [Mass/Vol] 13.9 g/dL 12.0-15.0 [facility] Blood lymphocytes/100 leukoc ytesOrdered By: Ananda Coyle on 05-26-2023 Lymphocytes/100 WBC (Bld) 11.0 % 19-41 [facility] Blood monocytes/100 leukocyt esOrdered By: Ananda Coyle on 05-26-2023 Monocytes/100 WBC (Bld) 4.5 % 0-10 [facility] Blood platelet mean volumeOr dered By: Ananda Coyle on 05-26-2023 Platelet mean volume (Bld) [Entitic vol] 9.8 fL 6.2-12.0 [facility] Determination of erythrocyte mean corpuscular volume (MCV)Ordered By: Ananda Coyle on 05-26-2023 MCV (RBC) [Entitic vol] 82.0 fL 81-99 [facility] Hematocrit Auto (Bld) [Volum e fraction]Ordered By: Ananda Coyle on 05-26-2023 Hematocrit (Bld) [Volume fraction] 43.8 % 37-47 [facility] Laboratory - Chemistry and C hemistry - challengeOrdered By: Ananda Coyle on 05-26-2023 CO2 [Moles/Vol] 31.0 mmol/L 21.0-32.0 [facility] Urea nitrogen/Creatinine [Mass ratio] 7.3 mg/mg 10-20 [facility] Laboratory - Hematology and Cell countsOrdered By: Ananda Coyle on 05-26-2023 Erythrocyte distribution width (RBC) [Entitic vol] 42.0 fL 35.1-43.9 [facility] Erythrocyte distribution width (RBC) [Ratio] 14.4 % 11.6-14.6 [facility] Immature granulocytes/100 WBC (Bld) 0.300 % 0.0-0.9 [facility] Comment on above: IG% - Immature Granu locytes (promyelocytes, myelocytes and metamyelocytes) > 1% indicates that a LEFT SHIFT is Present. MCH (RBC) [Entitic mass] 26.0 pg 27.0-32.0 [facility] Nucleated RBC/100 WBC (Bld) [Ratio] 0 % 0-5 [facility] MCHC Auto (RBC) [Mass/Vol]Or dered By: Ananda Coyle on 05-26-2023 MCHC (RBC) [Mass/Vol] 31.7 g/dL 32-36 [facility] No Panel InformationOrdered By: Ananda Coyle on 05-26-2023 Estimated Creatinine Clearance Calc 95.18 ml/min [facility] Estimated GFR (MDRD) Amer 116 mL/min >60 [facility] Comment on above: GFR Calc Estimated GFR (MDRD) Non-Af Amer 96 mL/min >60 [facility] Comment on above: Non- GFR Calc Platelets bldOrdered By: Andrew Coyle on 05-26-2023 Platelets (Bld) [#/Vol] 220 10*3/uL 150-450 [facility] Serum or plasma calcium xiomara urement (mass/volume)Ordered By: Ananda Coyle on 05-26-2023 Calcium [Mass/Vol] 9.1 mg/dL 8.5-10.1 [facility] Serum or plasma creatinine m easurement (mass/volume)Ordered By: Ananda Coyle on 05-26-2023 Creatinine [Mass/Vol] 0.68 mg/dL 0.55-1.02 [facility] Comment on above: The validity of the calculated GFR & GFRAA in patients over 70 years has not been determined. Clinical correlation is essential. Serum or plasma urea nitroge n measurement (mass/volume)Ordered By: Ananda Coyle on 05-26-2023 Urea nitrogen [Mass/Vol] 5 mg/dL 7-18 [facility] Thin prep Papanicolaou smear with manual screeningOrdered By: Ananda Coyle on 05-26-2023 Thin prep Papanicolaou smear with manual screening 5 5-15 [facility] Absolute lymphocyte countOrd ered By: Vidal Solorio on 05-22-2023 Lymphocytes Auto (Unsp spec) [#/Vol] 1.25 10*3/uL 0.83-4.51 [facility] Basophil percentageOrdered B y: Vidal Solorio on 05-22-2023 Basophils/100 WBC (Bld) 0.7 % 0-1 [facility] Chloride [Moles/Vol] 102 mmol/L 98-107 [facility] Eosinophils/100 WBC (Bld) 2.0 % 0-5 [facility] Glucose [Mass/Vol] 323 mg/dL 74-106 [facility] Comment on above: Glucose result great er than or equal to 200 mg/dLsuggests DIABETES MELLITUS per A.D.A. criteria. Neutrophils (Bld) [#/Vol] 6.3 10*3/uL 2.0-7.7 [facility] Neutrophils/100 WBC (Bld) 76.7 % 47-70 [facility] Potassium [Moles/Vol] 3.9 mmol/L 3.5-5.1 [facility] Sodium [Moles/Vol] 136 mmol/L 136-145 [facility] WBC (Bld) [#/Vol] 8.1 10*3/uL 4.4-11.0 [facility] Blood erythrocytes count (nu mber/volume)Ordered By: Vidal Solorio on 05-22-2023 RBC (Bld) [#/Vol] 4.97 10*6/uL 4.2-5.4 [facility] Blood hemoglobin measurement (mass/volume)Ordered By: Vidal Solorio on 05-22-2023 Hemoglobin (Bld) [Mass/Vol] 12.9 g/dL 12.0-15.0 [facility] Blood lymphocytes/100 leukoc ytesOrdered By: Vidal Solorio on 05-22-2023 Lymphocytes/100 WBC (Bld) 15.4 % 19-41 [facility] Blood monocytes/100 leukocyt esOrdered By: Vidal Solorio on 05-22-2023 Monocytes/100 WBC (Bld) 4.8 % 0-10 [facility] Blood platelet mean volumeOr dered By: Vidal Solorio on 05-22-2023 Platelet mean volume (Bld) [Entitic vol] 10.6 fL 6.2-12.0 [facility] Determination of erythrocyte mean corpuscular volume (MCV)Ordered By: Vidal Solorio on 05-22-2023 MCV (RBC) [Entitic vol] 82.1 fL 81-99 [facility] Hematocrit Auto (Bld) [Volum e fraction]Ordered By: Vidal Solorio on 05-22-2023 Hematocrit (Bld) [Volume fraction] 40.8 % 37-47 [facility] Laboratory - Chemistry and C hemistry - challengeOrdered By: Vidal Solorio on 05-22-2023 CO2 [Moles/Vol] 30.0 mmol/L 21.0-32.0 [facility] Urea nitrogen/Creatinine [Mass ratio] 11.6 mg/mg 10-20 [facility] Laboratory - Hematology and Cell countsOrdered By: Vidal Solorio on 05-22-2023 Erythrocyte distribution width (RBC) [Entitic vol] 41.3 fL 35.1-43.9 [facility] Erythrocyte distribution width (RBC) [Ratio] 14.1 % 11.6-14.6 [facility] Immature granulocytes/100 WBC (Bld) 0.400 % 0.0-0.9 [facility] Comment on above: IG% - Immature Granu locytes (promyelocytes, myelocytes and metamyelocytes) > 1% indicates that a LEFT SHIFT is Present. MCH (RBC) [Entitic mass] 26.0 pg 27.0-32.0 [facility] Nucleated RBC/100 WBC (Bld) [Ratio] 0 % 0-5 [facility] MCHC Auto (RBC) [Mass/Vol]Or dered By: Vidal Solorio on 05-22-2023 MCHC (RBC) [Mass/Vol] 31.6 g/dL 32-36 [facility] No Panel InformationOrdered By: Vidal Solorio on 05-22-2023 Estimated Creatinine Clearance Calc 82.98 ml/min [facility] Estimated GFR (MDRD) Amer 100 mL/min >60 [facility] Comment on above: GFR Calc Estimated GFR (MDRD) Non-Af Amer 83 mL/min >60 [facility] Comment on above: Non- GFR Calc Platelets bldOrdered By: Roxi Solorio on 05-22-2023 Platelets (Bld) [#/Vol] 196 10*3/uL 150-450 [facility] Serum or plasma calcium xiomara urement (mass/volume)Ordered By: Vidal Solorio on 05-22-2023 Calcium [Mass/Vol] 9.2 mg/dL 8.5-10.1 [facility] Serum or plasma creatinine m easurement (mass/volume)Ordered By: Vidal Solorio on 05-22-2023 Creatinine [Mass/Vol] 0.78 mg/dL 0.55-1.02 [facility] Comment on above: The validity of the calculated GFR & GFRAA in patients over 70 years has not been determined. Clinical correlation is essential. Serum or plasma urea nitroge n measurement (mass/volume)Ordered By: Vidal Solorio on 05-22-2023 Urea nitrogen [Mass/Vol] 9 mg/dL 7-18 [facility] Thin prep Papanicolaou smear with manual screeningOrdered By: Vidal Solorio on 05-22-2023 Thin prep Papanicolaou smear with manual screening 4 5-15 [facility] Absolute lymphocyte countOrd ered By: Brenda Posadas on 05-07-2023 Lymphocytes Auto (Unsp spec) [#/Vol] 1.39 10*3/uL 0.83-4.51 [facility] Basophil percentageOrdered B y: Brenda Posadas on 05-07-2023 Basophils/100 WBC (Bld) 1.1 % 0-1 [facility] Chloride [Moles/Vol] 102 mmol/L 98-107 [facility] Eosinophils/100 WBC (Bld) 3.0 % 0-5 [facility] Glucose [Mass/Vol] 85 mg/dL 74-106 [facility] Neutrophils (Bld) [#/Vol] 4.2 10*3/uL 2.0-7.7 [facility] Neutrophils/100 WBC (Bld) 66.3 % 47-70 [facility] Potassium [Moles/Vol] 4.2 mmol/L 3.5-5.1 [facility] Sodium [Moles/Vol] 136 mmol/L 136-145 [facility] WBC (Bld) [#/Vol] 6.3 10*3/uL 4.4-11.0 [facility] Blood erythrocytes count (nu mber/volume)Ordered By: Brenda Posadas on 05-07-2023 RBC (Bld) [#/Vol] 5.19 10*6/uL 4.2-5.4 [facility] Blood hemoglobin measurement (mass/volume)Ordered By: Brenda Posadas on 05-07-2023 Hemoglobin (Bld) [Mass/Vol] 13.5 g/dL 12.0-15.0 [facility] Blood lymphocytes/100 leukoc ytesOrdered By: Brenda Posadas on 05-07-2023 Lymphocytes/100 WBC (Bld) 22.0 % 19-41 [facility] Blood monocytes/100 leukocyt esOrdered By: Brenda Posadas on 05-07-2023 Monocytes/100 WBC (Bld) 7.3 % 0-10 [facility] Blood platelet mean volumeOr dered By: Brenda Posadas on 05-07-2023 Platelet mean volume (Bld) [Entitic vol] 10.5 fL 6.2-12.0 [facility] Determination of erythrocyte mean corpuscular volume (MCV)Ordered By: Brenda Posadas on 05-07-2023 MCV (RBC) [Entitic vol] 83.8 fL 81-99 [facility] Glucose Glucometer (BldC) [M ass/Vol]Ordered By: Latricia Aaron on 05-07-2023 Glucose [Mass/Vol] 229 mg/dL 74-106 [facility] Comment on above: MANAGEMENT OF PATIEN T CARE PER NURSING PROTOCOL Hematocrit Auto (Bld) [Volum e fraction]Ordered By: Brenda Posadas on 05-07-2023 Hematocrit (Bld) [Volume fraction] 43.5 % 37-47 [facility] Laboratory - Chemistry and C hemistry - challengeOrdered By: Brenda Posadas on 05-07-2023 CO2 [Moles/Vol] 26.0 mmol/L 21.0-32.0 [facility] Urea nitrogen/Creatinine [Mass ratio] 20.5 mg/mg 10-20 [facility] Laboratory - Hematology and Cell countsOrdered By: Brenda Posadas on 05-07-2023 Erythrocyte distribution width (RBC) [Entitic vol] 42.9 fL 35.1-43.9 [facility] Erythrocyte distribution width (RBC) [Ratio] 14.1 % 11.6-14.6 [facility] Immature granulocytes/100 WBC (Bld) 0.300 % 0.0-0.9 [facility] Comment on above: IG% - Immature Granu locytes (promyelocytes, myelocytes and metamyelocytes) > 1% indicates that a LEFT SHIFT is Present. MCH (RBC) [Entitic mass] 26.0 pg 27.0-32.0 [facility] Nucleated RBC/100 WBC (Bld) [Ratio] 0 % 0-5 [facility] MCHC Auto (RBC) [Mass/Vol]Or dered By: Brenda Posadas on 05-07-2023 MCHC (RBC) [Mass/Vol] 31.0 g/dL 32-36 [facility] No Panel InformationOrdered By: Brenda Posadas on 05-07-2023 Estimated Creatinine Clearance Calc 88.66 ml/min [facility] Estimated GFR (MDRD) Amer 108 mL/min >60 [facility] Comment on above: GFR Calc Estimated GFR (MDRD) Non-Af Amer 89 mL/min >60 [facility] Comment on above: Non- GFR Calc Platelets bldOrdered By: [place] Posadas on 05-07-2023 Platelets (Bld) [#/Vol] 202 10*3/uL 150-450 [facility] Serum or plasma calcium xiomara urement (mass/volume)Ordered By: Brenda Posadas on 05-07-2023 Calcium [Mass/Vol] 8.7 mg/dL 8.5-10.1 [facility] Serum or plasma creatinine m easurement (mass/volume)Ordered By: Brenda Posadas on 05-07-2023 Creatinine [Mass/Vol] 0.73 mg/dL 0.55-1.02 [facility] Comment on above: The validity of the calculated GFR & GFRAA in patients over 70 years has not been determined. Clinical correlation is essential. Serum or plasma urea nitroge n measurement (mass/volume)Ordered By: Brenda Posadas on 05-07-2023 Urea nitrogen [Mass/Vol] 15 mg/dL 7-18 [facility] Thin prep Papanicolaou smear with manual screeningOrdered By: Brenda Posadas on 05-07-2023 Thin prep Papanicolaou smear with manual screening 8 5-15 [facility] Laboratory - Chemistry and C hemistry - challengeOrdered By: Lei Justin on 05-04-2023 Magnesium [Mass/Vol] 2.1 mg/dL 1.6-2.6 [facility] No Panel InformationOrdered By: Brenda Posadas on 05-04-2023 Troponin I High Sensitivity 13 pg/mL 3.0-54.0 [facility] Comment on above: Please Note: New Junie t Units and Gender Specific Reference Ranges. For more information see Policy Stat Procedure [place] High Sensitivity Troponin (TNIH) and attachments. Absolute lymphocyte countOrd ered By: Ananda Coyle on 05-03-2023 Lymphocytes Auto (Unsp spec) [#/Vol] 1.07 10*3/uL 0.83-4.51 [facility] Basophil percentageOrdered B y: Ananda Coyle on 05-03-2023 Basophils/100 WBC (Bld) 0.9 % 0-1 [facility] Chloride [Moles/Vol] 106 mmol/L 98-107 [facility] Eosinophils/100 WBC (Bld) 3.4 % 0-5 [facility] Glucose [Mass/Vol] 323 mg/dL 74-106 [facility] Comment on above: Glucose result great er than or equal to 200 mg/dLsuggests DIABETES MELLITUS per A.D.A. criteria. Neutrophils (Bld) [#/Vol] 6.1 10*3/uL 2.0-7.7 [facility] Neutrophils/100 WBC (Bld) 77.6 % 47-70 [facility] Potassium [Moles/Vol] 3.6 mmol/L 3.5-5.1 [facility] Sodium [Moles/Vol] 138 mmol/L 136-145 [facility] WBC (Bld) [#/Vol] 7.9 10*3/uL 4.4-11.0 [facility] Blood erythrocytes count (nu mber/volume)Ordered By: Ananda Coyle on 05-03-2023 RBC (Bld) [#/Vol] 4.86 10*6/uL 4.2-5.4 [facility] Blood hemoglobin measurement (mass/volume)Ordered By: Ananda Coyle on 05-03-2023 Hemoglobin (Bld) [Mass/Vol] 12.6 g/dL 12.0-15.0 [facility] Blood lymphocytes/100 leukoc ytesOrdered By: Ananda Coyle on 05-03-2023 Lymphocytes/100 WBC (Bld) 13.6 % 19-41 [facility] Blood monocytes/100 leukocyt esOrdered By: Ananda Coyle on 05-03-2023 Monocytes/100 WBC (Bld) 3.9 % 0-10 [facility] Blood platelet mean volumeOr dered By: Ananda Coyle on 05-03-2023 Platelet mean volume (Bld) [Entitic vol] 9.8 fL 6.2-12.0 [facility] Determination of erythrocyte mean corpuscular volume (MCV)Ordered By: Ananda Coyle on 05-03-2023 MCV (RBC) [Entitic vol] 82.5 fL 81-99 [facility] Hematocrit Auto (Bld) [Volum e fraction]Ordered By: Ananda Coyle on 05-03-2023 Hematocrit (Bld) [Volume fraction] 40.1 % 37-47 [facility] Influenza virus A and B and SARS-CoV-2 (COVID-19) Ag panel - Upper respiratory specimOrdered By: Ananda Coyle on 05-03-2023 SARS-CoV-2 (COVID-19) RNA CRISSY+probe Ql (Resp) [facility] Laboratory - Chemistry and C hemistry - challengeOrdered By: Ananda Coyle on 05-03-2023 CO2 [Moles/Vol] 29.0 mmol/L 21.0-32.0 [facility] Natriuretic peptide B (Bld) [Mass/Vol] 941.8 pg/mL 0-100 [facility] Urea nitrogen/Creatinine [Mass ratio] 13.0 mg/mg 10-20 [facility] Laboratory - Hematology and Cell countsOrdered By: Ananda Coyle on 05-03-2023 Erythrocyte distribution width (RBC) [Entitic vol] 41.4 fL 35.1-43.9 [facility] Erythrocyte distribution width (RBC) [Ratio] 14.2 % 11.6-14.6 [facility] Immature granulocytes/100 WBC (Bld) 0.600 % 0.0-0.9 [facility] Comment on above: IG% - Immature Granu locytes (promyelocytes, myelocytes and metamyelocytes) > 1% indicates that a LEFT SHIFT is Present. MCH (RBC) [Entitic mass] 25.9 pg 27.0-32.0 [facility] Nucleated RBC/100 WBC (Bld) [Ratio] 0 % 0-5 [facility] MCHC Auto (RBC) [Mass/Vol]Or dered By: Ananda Coyle on 05-03-2023 MCHC (RBC) [Mass/Vol] 31.4 g/dL 32-36 [facility] No Panel InformationOrdered By: Ananda Coyle on 05-03-2023 Estimated Creatinine Clearance Calc 84.06 ml/min [facility] Estimated GFR (MDRD) Amer 102 mL/min >60 [facility] Comment on above: GFR Calc Estimated GFR (MDRD) Non-Af Amer 84 mL/min >60 [facility] Comment on above: Non- GFR Calc Troponin I High Sensitivity 14 pg/mL 3.0-54.0 [facility] Comment on above: Please Note: New Junie t Units and Gender Specific Reference Ranges. For more information see Policy Stat Procedure [place] High Sensitivity Troponin (TNIH) and attachments. Platelets bldOrdered By: Andrew Coyle on 05-03-2023 Platelets (Bld) [#/Vol] 210 10*3/uL 150-450 [facility] Serum or plasma calcium xiomara urement (mass/volume)Ordered By: Ananda Coyle on 05-03-2023 Calcium [Mass/Vol] 8.6 mg/dL 8.5-10.1 [facility] Serum or plasma creatinine m easurement (mass/volume)Ordered By: Ananda Coyle on 05-03-2023 Creatinine [Mass/Vol] 0.77 mg/dL 0.55-1.02 [facility] Comment on above: The validity of the calculated GFR & GFRAA in patients over 70 years has not been determined. Clinical correlation is essential. Serum or plasma urea nitroge n measurement (mass/volume)Ordered By: Ananda Coyle on 05-03-2023 Urea nitrogen [Mass/Vol] 10 mg/dL 7-18 [facility] Thin prep Papanicolaou smear with manual screeningOrdered By: Ananda Coyle on 05-03-2023 Thin prep Papanicolaou smear with manual screening 3 - [facility] Upper respiratory specimen i nfluenza A virus, influenza B virus, and severe acute resOrdered By: Ananda Coyle on 05-03-2023 Upper respiratory specimen influenza A virus, influenza B virus, and severe acute res [facility] Upper respiratory specimen i nfluenza A virus, influenza B virus, and severe acute respiratory syndromOrdered By: Ananda Coyle on 05-03-2023 Upper respiratory specimen influenza A virus, influenza B virus, and severe acute respiratory syndrom [facility] Whole blood hemoglobin A1c/t otal hemoglobin ratio (mass fraction)Ordered By: Lei Justin on 05-03-2023 HbA1c (Bld) [Mass fraction] 11.0 % 3.8-5.6 [facility] Comment on above: Normal < 5.7 % Predi abetic 5.7 - 6.4 % Diabetic >or= 6.5 % Please note range changes. Basophil percentageOrdered B y: Lino Sousa on 04-18-2023 Amylase [Catalytic activity/Vol] 45 U/L 25-115 [facility] Bilirubin [Mass/Vol] 0.90 mg/dL 0.20-1.00 [facility] Comment on above: For patients on eltr ombopag therapy, use of Dimension [place] TBIL is not recommended. Chloride [Moles/Vol] 103 mmol/L 98-107 [facility] Glucose [Mass/Vol] 279 mg/dL 74-106 [facility] Comment on above: Glucose result great er than or equal to 200 mg/dLsuggests DIABETES MELLITUS per A.D.A. criteria. Potassium [Moles/Vol] 4.1 mmol/L 3.5-5.1 [facility] Protein [Mass/Vol] 7.5 g/dL 6.4-8.2 [facility] Sodium [Moles/Vol] 137 mmol/L 136-145 [facility] Laboratory - Chemistry and C hemistry - challengeOrdered By: Lino Sousa on 04-18-2023 ALP [Catalytic activity/Vol] 104 U/L 45-117 [facility] ALT [Catalytic activity/Vol] 13 U/L 13-56 [facility] CO2 [Moles/Vol] 30.0 mmol/L 21.0-32.0 [facility] Globulin (S) [Mass/Vol] 4.5 g/dL 2.2-4.2 [facility] Lipase [Catalytic activity/Vol] 27 U/L 13-75 [facility] Comment on above: Please note:LIPASE r evised reference range effective 22. New Lipase methodology. Expected to produce lower values than the previous assay method. NEW Reference Range: 13 - 75 U/L Urea nitrogen/Creatinine [Mass ratio] 12.8 mg/mg 10-20 [facility] No Panel InformationOrdered By: Lino Sousa on 04-18-2023 Estimated GFR (MDRD) Amer 90 mL/min >60 [facility] Comment on above: GFR Calc Estimated GFR (MDRD) Non-Af Amer 74 mL/min >60 [facility] Comment on above: Non- GFR Calc Serum or plasma albumin xiomara urement (mass/volume)Ordered By: Lino Sousa on 04-18-2023 Albumin [Mass/Vol] 3.0 g/dL 3.2-5.0 [facility] Serum or plasma albumin/glob ulin mass ratioOrdered By: Lino Sousa on 04-18-2023 Albumin/Globulin [Mass ratio] 0.7 {ratio} 0.9-2.4 [facility] Serum or plasma calcium xiomara urement (mass/volume)Ordered By: Lino Sousa on 04-18-2023 Calcium [Mass/Vol] 9.0 mg/dL 8.5-10.1 [facility] Serum or plasma creatinine m easurement (mass/volume)Ordered By: Lino Sousa on 04-18-2023 Creatinine [Mass/Vol] 0.86 mg/dL 0.55-1.02 [facility] Comment on above: The validity of the calculated GFR & GFRAA in patients over 70 years has not been determined. Clinical correlation is essential. Serum or plasma urea nitroge n measurement (mass/volume)Ordered By: Lino Sousa on 04-18-2023 Urea nitrogen [Mass/Vol] 11 mg/dL 7-18 [facility] Thin prep Papanicolaou smear with manual screeningOrdered By: Lino Sousa on 04-18-2023 Thin prep Papanicolaou smear with manual screening 12 U/L 15-37 [facility] Thin prep Papanicolaou smear with manual screening 4 - [facility] Absolute lymphocyte countOrd ered By: Brandon Adames on 02-03-2023 Lymphocytes Auto (Unsp spec) [#/Vol] 1.68 10*3/uL 0.83-4.51 [facility] Basophil percentageOrdered B y: Brandon Adames on 02-03-2023 Basophils/100 WBC (Bld) 1.0 % 0-1 [facility] Chloride [Moles/Vol] 106 mmol/L 98-107 [facility] Eosinophils/100 WBC (Bld) 3.2 % 0-5 [facility] Glucose [Mass/Vol] 177 mg/dL 74-106 [facility] Comment on above: Fasting Glucose resu lt greater than or equal to 126 mg/dL suggests DIABETES MELLITUS per A.D.A. criteria. Neutrophils (Bld) [#/Vol] 5.9 10*3/uL 2.0-7.7 [facility] Neutrophils/100 WBC (Bld) 70.1 % 47-70 [facility] Potassium [Moles/Vol] 3.6 mmol/L 3.5-5.1 [facility] Sodium [Moles/Vol] 138 mmol/L 136-145 [facility] WBC (Bld) [#/Vol] 8.4 10*3/uL 4.4-11.0 [facility] Blood erythrocytes count (nu mber/volume)Ordered By: Brandon Adames on 02-03-2023 RBC (Bld) [#/Vol] 4.78 10*6/uL 4.2-5.4 [facility] Blood hemoglobin measurement (mass/volume)Ordered By: Brandon Adames on 02-03-2023 Hemoglobin (Bld) [Mass/Vol] 13.1 g/dL 12.0-15.0 [facility] Blood lymphocytes/100 leukoc ytesOrdered By: Brandon Adames on 02-03-2023 Lymphocytes/100 WBC (Bld) 20.1 % 19-41 [facility] Blood monocytes/100 leukocyt esOrdered By: Brandon Adames on 02-03-2023 Monocytes/100 WBC (Bld) 5.4 % 0-10 [facility] Blood platelet mean volumeOr dered By: Brandon Adames on 02-03-2023 Platelet mean volume (Bld) [Entitic vol] 9.9 fL 6.2-12.0 [facility] Determination of erythrocyte mean corpuscular volume (MCV)Ordered By: Brandon Adames on 02-03-2023 MCV (RBC) [Entitic vol] 86.0 fL 81-99 [facility] Glucose Glucometer (dC) [M ass/Vol]Ordered By: Sabina Rosenberg on 02-03-2023 Glucose [Mass/Vol] 247 mg/dL 74-106 [facility] Comment on above: MANAGEMENT OF PATIEN T CARE PER NURSING PROTOCOL Hematocrit Auto (Bld) [Volum e fraction]Ordered By: Brandon Adames on 02-03-2023 Hematocrit (Bld) [Volume fraction] 41.1 % 37-47 [facility] Laboratory - Chemistry and C hemistry - challengeOrdered By: Brandon Adames on 02-03-2023 CO2 [Moles/Vol] 27.0 mmol/L 21.0-32.0 [facility] Urea nitrogen/Creatinine [Mass ratio] 12.6 mg/mg 10-20 [facility] Laboratory - Hematology and Cell countsOrdered By: Brandon Adames on 02-03-2023 Erythrocyte distribution width (RBC) [Entitic vol] 40.4 fL 35.1-43.9 [facility] Erythrocyte distribution width (RBC) [Ratio] 13.1 % 11.6-14.6 [facility] Immature granulocytes/100 WBC (Bld) 0.200 % 0.0-0.9 [facility] Comment on above: IG% - Immature Granu locytes (promyelocytes, myelocytes and metamyelocytes) > 1% indicates that a LEFT SHIFT is Present. MCH (RBC) [Entitic mass] 27.4 pg 27.0-32.0 [facility] Nucleated RBC/100 WBC (Bld) [Ratio] 0 % 0-5 [facility] MCHC Auto (RBC) [Mass/Vol]Or dered By: Brandon Adames on 02-03-2023 MCHC (RBC) [Mass/Vol] 31.9 g/dL 32-36 [facility] No Panel InformationOrdered By: Brandon Adames on 02-03-2023 Estimated Creatinine Clearance Calc 115.58 ml/min [facility] Estimated GFR (MDRD) Amer 148 mL/min >60 [facility] Comment on above: GFR Calc Estimated GFR (MDRD) Non-Af Amer 122 mL/min >60 [facility] Comment on above: Non- GFR Calc No Panel InformationOrdered By: Michael Kinsey on 02-03-2023 Troponin I High Sensitivity 26 pg/mL 3.0-54.0 [facility] Comment on above: Please Note: New Junie t Units and Gender Specific Reference Ranges. For more information see Policy Stat Procedure [place] High Sensitivity Troponin (TNIH) and attachments. Platelets bldOrdered By: Yamil Adames on 02-03-2023 Platelets (Bld) [#/Vol] 226 10*3/uL 150-450 [facility] Serum or plasma calcium xiomara urement (mass/volume)Ordered By: Brandon Adames on 02-03-2023 Calcium [Mass/Vol] 8.3 mg/dL 8.5-10.1 [facility] Serum or plasma creatinine m easurement (mass/volume)Ordered By: Brandon Adames on 02-03-2023 Creatinine [Mass/Vol] 0.56 mg/dL 0.55-1.02 [facility] Comment on above: The validity of the calculated GFR & GFRAA in patients over 70 years has not been determined. Clinical correlation is essential. Serum or plasma urea nitroge n measurement (mass/volume)Ordered By: Brandon Adames on 02-03-2023 Urea nitrogen [Mass/Vol] 7 mg/dL 7-18 [facility] Thin prep Papanicolaou smear with manual screeningOrdered By: Brandon Adames on 02-03-2023 Thin prep Papanicolaou smear with manual screening 5 5-15 [facility] Absolute lymphocyte countOrd ered By: Zack Card on 02-02-2023 Lymphocytes Auto (Unsp spec) [#/Vol] 1.45 10*3/uL 0.83-4.51 [facility] Basophil percentageOrdered B y: Zack Card on 02-02-2023 Basophils/100 WBC (Bld) 1.1 % 0-1 [facility] Chloride [Moles/Vol] 104 mmol/L 98-107 [facility] Eosinophils/100 WBC (Bld) 3.9 % 0-5 [facility] Glucose [Mass/Vol] 249 mg/dL 74-106 [facility] Comment on above: Glucose result great er than or equal to 200 mg/dLsuggests DIABETES MELLITUS per A.D.A. criteria. Neutrophils (Bld) [#/Vol] 5.5 10*3/uL 2.0-7.7 [facility] Neutrophils/100 WBC (Bld) 70.1 % 47-70 [facility] Potassium [Moles/Vol] 3.6 mmol/L 3.5-5.1 [facility] Sodium [Moles/Vol] 138 mmol/L 136-145 [facility] WBC (Bld) [#/Vol] 7.9 10*3/uL 4.4-11.0 [facility] Blood erythrocytes count (nu mber/volume)Ordered By: Zack Card on 02-02-2023 RBC (Bld) [#/Vol] 4.79 10*6/uL 4.2-5.4 [facility] Blood hemoglobin measurement (mass/volume)Ordered By: Zack Card on 02-02-2023 Hemoglobin (Bld) [Mass/Vol] 13.2 g/dL 12.0-15.0 [facility] Blood lymphocytes/100 leukoc ytesOrdered By: Zack Card on 02-02-2023 Lymphocytes/100 WBC (Bld) 18.4 % 19-41 [facility] Blood monocytes/100 leukocyt esOrdered By: Zack Card on 02-02-2023 Monocytes/100 WBC (Bld) 6.1 % 0-10 [facility] Blood platelet mean volumeOr dered By: Zack Card on 02-02-2023 Platelet mean volume (Bld) [Entitic vol] 10.6 fL 6.2-12.0 [facility] Determination of erythrocyte mean corpuscular volume (MCV)Ordered By: Zack Card on 02-02-2023 MCV (RBC) [Entitic vol] 87.3 fL 81-99 [facility] Hematocrit Auto (Bld) [Volum e fraction]Ordered By: Zack Card on 02-02-2023 Hematocrit (Bld) [Volume fraction] 41.8 % 37-47 [facility] Laboratory - Chemistry and C hemistry - challengeOrdered By: Zack Card on 02-02-2023 CO2 [Moles/Vol] 30.0 mmol/L 21.0-32.0 [facility] Natriuretic peptide B (Bld) [Mass/Vol] 498.2 pg/mL 0-100 [facility] Urea nitrogen/Creatinine [Mass ratio] 11.7 mg/mg 10-20 [facility] Laboratory - Hematology and Cell countsOrdered By: Zack Card on 02-02-2023 Erythrocyte distribution width (RBC) [Entitic vol] 41.2 fL 35.1-43.9 [facility] Erythrocyte distribution width (RBC) [Ratio] 13.0 % 11.6-14.6 [facility] Immature granulocytes/100 WBC (Bld) 0.400 % 0.0-0.9 [facility] Comment on above: IG% - Immature Granu locytes (promyelocytes, myelocytes and metamyelocytes) > 1% indicates that a LEFT SHIFT is Present. MCH (RBC) [Entitic mass] 27.6 pg 27.0-32.0 [facility] Nucleated RBC/100 WBC (Bld) [Ratio] 0 % 0-5 [facility] MCHC Auto (RBC) [Mass/Vol]Or dered By: Zack Card on 02-02-2023 MCHC (RBC) [Mass/Vol] 31.6 g/dL 32-36 [facility] No Panel InformationOrdered By: Zack Card on 02-02-2023 Troponin I High Sensitivity 24 pg/mL 3.0-54.0 [facility] Comment on above: Please Note: New Junie t Units and Gender Specific Reference Ranges. For more information see Policy Stat Procedure [place] High Sensitivity Troponin (TNIH) and attachments. D-Dimer Quantitative (PE/DVT) 0.99 FEU/ug/m 0.27-0.49 [facility] Comment on above: D-Dimer ELEVATED (>0 .49): Additional studies and clinicalassessments are indicated to conclude diagnosis of:Deep Vein Thrombosis (DVT) or Pulmonary Embolism (PE) Estimated Creatinine Clearance Calc 90.30 ml/min [facility] Estimated GFR (MDRD) Amer 116 mL/min >60 [facility] Comment on above: GFR Calc Estimated GFR (MDRD) Non-Af Amer 96 mL/min >60 [facility] Comment on above: Non- GFR Calc Platelets bldOrdered By: Sanjay Card on 02-02-2023 Platelets (Bld) [#/Vol] 238 10*3/uL 150-450 [facility] Serum or plasma calcium xiomara urement (mass/volume)Ordered By: Zack Card on 02-02-2023 Calcium [Mass/Vol] 8.9 mg/dL 8.5-10.1 [facility] Serum or plasma creatinine m easurement (mass/volume)Ordered By: Zack Card on 02-02-2023 Creatinine [Mass/Vol] 0.69 mg/dL 0.55-1.02 [facility] Comment on above: The validity of the calculated GFR & GFRAA in patients over 70 years has not been determined. Clinical correlation is essential. Serum or plasma urea nitroge n measurement (mass/volume)Ordered By: Zack Card on 02-02-2023 Urea nitrogen [Mass/Vol] 8 mg/dL 7-18 [facility] Thin prep Papanicolaou smear with manual screeningOrdered By: Zack Card on 02-02-2023 Thin prep Papanicolaou smear with manual screening 4 5-15 [facility] Glucose Glucometer (BldC) [M ass/Vol]Ordered By: Sabina Rosenberg on 01-03-2023 Glucose [Mass/Vol] 154 mg/dL 74-106 [facility] Comment on above: MANAGEMENT OF PATIEN T CARE PER NURSING PROTOCOL Basophil percentageOrdered B y: Sabina Rosenberg on 01-02-2023 Chloride [Moles/Vol] 100 mmol/L 98-107 [facility] Glucose [Mass/Vol] 293 mg/dL 74-106 [facility] Comment on above: Glucose result great er than or equal to 200 mg/dLsuggests DIABETES MELLITUS per A.D.A. criteria. Potassium [Moles/Vol] 3.7 mmol/L 3.5-5.1 [facility] Sodium [Moles/Vol] 136 mmol/L 136-145 [facility] Laboratory - Chemistry and C hemistry - challengeOrdered By: Sabina Rosenberg on 01-02-2023 CO2 [Moles/Vol] 30.0 mmol/L 21.0-32.0 [facility] Urea nitrogen/Creatinine [Mass ratio] 8.3 mg/mg 10-20 [facility] No Panel InformationOrdered By: Sabina Rosenberg on 01-02-2023 Estimated Creatinine Clearance Calc 86.54 ml/min [facility] Estimated GFR (MDRD) Amer 109 mL/min >60 [facility] Comment on above: GFR Calc Estimated GFR (MDRD) Non-Af Amer 90 mL/min >60 [facility] Comment on above: Non- GFR Calc Serum or plasma calcium xiomara urement (mass/volume)Ordered By: Sabina Rosenberg on 01-02-2023 Calcium [Mass/Vol] 8.7 mg/dL 8.5-10.1 [facility] Serum or plasma creatinine m easurement (mass/volume)Ordered By: Sabina Rosenberg on 01-02-2023 Creatinine [Mass/Vol] 0.72 mg/dL 0.55-1.02 [facility] Comment on above: The validity of the calculated GFR & GFRAA in patients over 70 years has not been determined. Clinical correlation is essential. Serum or plasma urea nitroge n measurement (mass/volume)Ordered By: Sabina Rosenberg on 01-02-2023 Urea nitrogen [Mass/Vol] 6 mg/dL 7-18 [facility] Thin prep Papanicolaou smear with manual screeningOrdered By: Sabina Rosenberg on 01-02-2023 Thin prep Papanicolaou smear with manual screening 6 5-15 [facility] Absolute lymphocyte countOrd ered By: Yvette Hanley on 01-01-2023 Lymphocytes Auto (Unsp spec) [#/Vol] 1.39 10*3/uL 0.83-4.51 [facility] Basophil percentageOrdered B y: Yvette Hanley on 01-01-2023 Basophils/100 WBC (Bld) 0.8 % 0-1 [facility] Chloride [Moles/Vol] 104 mmol/L 98-107 [facility] Eosinophils/100 WBC (Bld) 2.7 % 0-5 [facility] Glucose [Mass/Vol] 344 mg/dL 74-106 [facility] Comment on above: Glucose result great er than or equal to 200 mg/dLsuggests DIABETES MELLITUS per A.D.A. criteria. Neutrophils (Bld) [#/Vol] 6.5 10*3/uL 2.0-7.7 [facility] Neutrophils/100 WBC (Bld) 75.1 % 47-70 [facility] Potassium [Moles/Vol] 4.0 mmol/L 3.5-5.1 [facility] Sodium [Moles/Vol] 136 mmol/L 136-145 [facility] WBC (Bld) [#/Vol] 8.7 10*3/uL 4.4-11.0 [facility] Blood erythrocytes count (nu mber/volume)Ordered By: Yvette Hanley on 01-01-2023 RBC (Bld) [#/Vol] 5.13 10*6/uL 4.2-5.4 [facility] Blood hemoglobin measurement (mass/volume)Ordered By: Yvette Hanley on 01-01-2023 Hemoglobin (Bld) [Mass/Vol] 14.0 g/dL 12.0-15.0 [facility] Blood lymphocytes/100 leukoc ytesOrdered By: Sallie Talon on 01-01-2023 Lymphocytes/100 WBC (Bld) 16.1 % 19-41 [facility] Blood monocytes/100 leukocyt esOrdered By: Yvette Hanley on 01-01-2023 Monocytes/100 WBC (Bld) 5.0 % 0-10 [facility] Blood platelet mean volumeOr dered By: Yvette Hanley on 01-01-2023 Platelet mean volume (Bld) [Entitic vol] 9.5 fL 6.2-12.0 [facility] Determination of erythrocyte mean corpuscular volume (MCV)Ordered By: Yvette Hanley on 01-01-2023 MCV (RBC) [Entitic vol] 84.2 fL 81-99 [facility] Hematocrit Auto (Bld) [Volum e fraction]Ordered By: Yvette Hanley on 01-01-2023 Hematocrit (Bld) [Volume fraction] 43.2 % 37-47 [facility] Influenza virus A and B and SARS-CoV-2 (COVID-19) Ag panel - Upper respiratory specimOrdered By: Ideal Talon on 01-01-2023 SARS-CoV-2 (COVID-19) RNA CRISSY+probe Ql (Resp) [facility] SARS-CoV-2 (COVID-19) RNA CRISSY+probe Ql (Resp) [facility] Laboratory - Chemistry and C hemistry - challengeOrdered By: Yvette Hanley on 01-01-2023 Natriuretic peptide B (Bld) [Mass/Vol] 573.6 pg/mL 0-100 [facility] CO2 [Moles/Vol] 27.0 mmol/L 21.0-32.0 [facility] Urea nitrogen/Creatinine [Mass ratio] 8.2 mg/mg 10-20 [facility] Laboratory - Hematology and Cell countsOrdered By: Yvette Hanley on 01-01-2023 Erythrocyte distribution width (RBC) [Entitic vol] 42.1 fL 35.1-43.9 [facility] Erythrocyte distribution width (RBC) [Ratio] 13.7 % 11.6-14.6 [facility] Immature granulocytes/100 WBC (Bld) 0.300 % 0.0-0.9 [facility] Comment on above: IG% - Immature Granu locytes (promyelocytes, myelocytes and metamyelocytes) > 1% indicates that a LEFT SHIFT is Present. MCH (RBC) [Entitic mass] 27.3 pg 27.0-32.0 [facility] Nucleated RBC/100 WBC (Bld) [Ratio] 0 % 0-5 [facility] MCHC Auto (RBC) [Mass/Vol]Or dered By: Yvette Hanley on 01-01-2023 MCHC (RBC) [Mass/Vol] 32.4 g/dL 32-36 [facility] No Panel InformationOrdered By: Yvette Hanley on 01-01-2023 Troponin I High Sensitivity 12 pg/mL 3.0-54.0 [facility] Comment on above: Please Note: New Junie t Units and Gender Specific Reference Ranges. For more information see Policy Stat Procedure [place] High Sensitivity Troponin (TNIH) and attachments. Estimated Creatinine Clearance Calc 84.20 ml/min [facility] Estimated GFR (MDRD) Amer 107 mL/min >60 [facility] Comment on above: GFR Calc Estimated GFR (MDRD) Non-Af Amer 88 mL/min >60 [facility] Comment on above: Non- GFR Calc Platelets bldOrdered By: Sallie Hanley on 01-01-2023 Platelets (Bld) [#/Vol] 201 10*3/uL 150-450 [facility] Serum or plasma calcium xiomara urement (mass/volume)Ordered By: Yvette Hanley on 01-01-2023 Calcium [Mass/Vol] 8.7 mg/dL 8.5-10.1 [facility] Serum or plasma creatinine m easurement (mass/volume)Ordered By: Yvette Hanley on 01-01-2023 Creatinine [Mass/Vol] 0.74 mg/dL 0.55-1.02 [facility] Comment on above: The validity of the calculated GFR & GFRAA in patients over 70 years has not been determined. Clinical correlation is essential. Serum or plasma urea nitroge n measurement (mass/volume)Ordered By: Yvette Hanley on 01-01-2023 Urea nitrogen [Mass/Vol] 6 mg/dL 7-18 [facility] Thin prep Papanicolaou smear with manual screeningOrdered By: Yvette Hanley on 01-01-2023 Thin prep Papanicolaou smear with manual screening 5 5-15 [facility] Absolute lymphocyte countOrd ered By: Dr. Card on 09-18-2022 Lymphocytes Auto (Unsp spec) [#/Vol] 1.74 10*3/uL 0.83-4.51 [facility] Basophil percentageOrdered B y: Dr. Card on 09-18-2022 Basophil percentage 425 mg/dL 74-106 [facility] Basophil percentage 6.7 g/dL 6.4-8.2 [facility] Basophil percentage 0.70 mg/dL 0.20-1.00 [facility] Basophil percentage 132 mmol/L 136-145 [facility] Basophil percentage 4.7 mmol/L 3.5-5.1 [facility] Basophil percentage 100 mmol/L 98-107 [facility] Basophils (Bld) [#/Vol] 9.5 10*3/uL 4.4-11.0 [facility] Basophils (Bld) [#/Vol] 7.1 10*3/uL 2.0-7.7 [facility] Basophils/100 WBC (Bld) 74.8 % 47-70 [facility] Basophils/100 WBC (Bld) 0.7 % 0-5 [facility] Basophils/100 WBC (Bld) 0.4 % 0-1 [facility] Basophil percentageOrdered B y: Zack Card on 09-18-2022 Bilirubin [Mass/Vol] 0.70 mg/dL 0.20-1.00 [facility] Comment on above: For patients on eltr ombopag therapy, use of Dimension [place] TBIL is not recommended. Chloride [Moles/Vol] 100 mmol/L 98-107 [facility] Glucose [Mass/Vol] 425 mg/dL 74-106 [facility] Comment on above: Glucose result great er than or equal to 200 mg/dLsuggests DIABETES MELLITUS per A.D.A. criteria. Potassium [Moles/Vol] 4.7 mmol/L 3.5-5.1 [facility] Protein [Mass/Vol] 6.7 g/dL 6.4-8.2 [facility] Sodium [Moles/Vol] 132 mmol/L 136-145 [facility] Eosinophils/100 WBC (Bld) 0.7 % 0-5 [facility] Neutrophils (Bld) [#/Vol] 7.1 10*3/uL 2.0-7.7 [facility] Neutrophils/100 WBC (Bld) 74.8 % 47-70 [facility] WBC (Bld) [#/Vol] 9.5 10*3/uL 4.4-11.0 [facility] Blood erythrocytes count (nu mber/volume)Ordered By: Dr. Card on 09-18-2022 RBC (Bld) [#/Vol] 6.20 10*6/uL 4.2-5.4 [facility] Blood hemoglobin measurement (mass/volume)Ordered By: Dr. Card on 09-18-2022 Hemoglobin (Bld) [Mass/Vol] 17.0 g/dL 12.0-15.0 [facility] Blood lymphocytes/100 leukoc ytesOrdered By: Dr. Card on 09-18-2022 Lymphocytes/100 WBC (Bld) 18.4 % 19-41 [facility] Blood monocytes/100 leukocyt esOrdered By: Dr. Card on 09-18-2022 Monocytes/100 WBC (Bld) 5.3 % 0-10 [facility] Blood platelet mean volumeOr dered By: Dr. Card on 09-18-2022 Platelet mean volume (Bld) [Entitic vol] 9.4 fL 6.2-12.0 [facility] Determination of erythrocyte mean corpuscular volume (MCV)Ordered By: Dr. Card on 09-18-2022 MCV (RBC) [Entitic vol] 82.7 fL 81-99 [facility] Direct bilirubinOrdered By: Dr. Card on 09-18-2022 Bilirubin.direct [Mass/Vol] 0.18 mg/dL 0.00-0.30 [facility] Glucose Glucometer (BldC) [M ass/Vol]Ordered By: Dr. Card on 09-18-2022 Glucose [Mass/Vol] 281 mg/dL 74-106 [facility] Comment on above: MANAGEMENT OF PATIEN T CARE PER NURSING PROTOCOL Hematocrit Auto (Bld) [Volum e fraction]Ordered By: Dr. Card on 09-18-2022 Hematocrit (Bld) [Volume fraction] 51.3 % 37-47 [facility] Laboratory - Chemistry and C hemistry - challengeOrdered By: Zack Card on 09-18-2022 ALP [Catalytic activity/Vol] 111 U/L 45-117 [facility] ALT [Catalytic activity/Vol] 19 U/L 13-56 [facility] CO2 [Moles/Vol] 30.0 mmol/L 21.0-32.0 [facility] Globulin (S) [Mass/Vol] 3.9 g/dL 2.2-4.2 [facility] Lipase [Catalytic activity/Vol] 27 U/L 13-75 [facility] Comment on above: Please note:LIPASE r evised reference range effective 22. New Lipase methodology. Expected to produce lower values than the previous assay method. NEW Reference Range: 13 - 75 U/L Urea nitrogen/Creatinine [Mass ratio] 18.2 mg/mg 10-20 [facility] Laboratory - Hematology and Cell countsOrdered By: Zack Card on 09-18-2022 Erythrocyte distribution width (RBC) [Entitic vol] 38.1 fL 35.1-43.9 [facility] Erythrocyte distribution width (RBC) [Ratio] 12.7 % 11.6-14.6 [facility] Immature granulocytes/100 WBC (Bld) 0.400 % 0.0-0.9 [facility] Comment on above: IG% - Immature Granu locytes (promyelocytes, myelocytes and metamyelocytes) > 1% indicates that a LEFT SHIFT is Present. MCH (RBC) [Entitic mass] 27.4 pg 27.0-32.0 [facility] Nucleated RBC/100 WBC (Bld) [Ratio] 0 % 0-5 [facility] MCHC Auto (RBC) [Mass/Vol]Or dered By: Dr. Card on 09-18-2022 MCHC (RBC) [Mass/Vol] 33.1 g/dL 32-36 [facility] No Panel InformationOrdered By: Zack Card on 09-18-2022 Estimated Creatinine Clearance Calc 62.94 ml/min [facility] Estimated GFR (MDRD) Amer 76 mL/min >60 [facility] Comment on above: GFR Calc Estimated GFR (MDRD) Non-Af Amer 63 mL/min >60 [facility] Comment on above: Non- GFR Calc No Panel InformationOrdered By: Dr. Card on 09-18-2022 63 mL/min >60 [facility] 76 mL/min >60 [facility] 62.94 ml/min [facility] 18.2 RATIO 10-20 [facility] 3.9 g/dL 2.2-4.2 [facility] 27 U/L 13-75 [facility] 111 U/L 45-117 [facility] 19 U/L 13-56 [facility] 30.0 mmol/L 21.0-32.0 [facility] 27.4 pg 27.0-32.0 [facility] 12.7 % 11.6-14.6 [facility] 38.1 fl 35.1-43.9 [facility] 0.400 % 0.0-0.9 [facility] 0 % 0-5 [facility] Platelets bldOrdered By: Dr. Card on 09-18-2022 Platelets (Bld) [#/Vol] 268 10*3/uL 150-450 [facility] Serum or plasma albumin xiomara urement (mass/volume)Ordered By: Dr. Card on 09-18-2022 Albumin [Mass/Vol] 2.8 g/dL 3.2-5.0 [facility] Serum or plasma albumin/glob ulin mass ratioOrdered By: Dr. Card on 09-18-2022 Albumin/Globulin [Mass ratio] 0.7 {ratio} 0.9-2.4 [facility] Serum or plasma calcium xiomara urement (mass/volume)Ordered By: Dr. Card on 09-18-2022 Calcium [Mass/Vol] 9.0 mg/dL 8.5-10.1 [facility] Serum or plasma creatinine m easurement (mass/volume)Ordered By: Dr. Card on 09-18-2022 Creatinine [Mass/Vol] 0.99 mg/dL 0.55-1.02 [facility] Comment on above: The validity of the calculated GFR & GFRAA in patients over 70 years has not been determined. Clinical correlation is essential. Serum or plasma urea nitroge n measurement (mass/volume)Ordered By: Dr. Card on 09-18-2022 Urea nitrogen [Mass/Vol] 18 mg/dL 7-18 [facility] Thin prep Papanicolaou smear with manual screeningOrdered By: Dr. Card on 09-18-2022 Thin prep Papanicolaou smear with manual screening 14 U/L 15-37 [facility] Thin prep Papanicolaou smear with manual screening 2 5-15 [facility] Absolute lymphocyte countOrd ered By: Dr. Black on 09-11-2022 Lymphocytes Auto (Unsp spec) [#/Vol] 1.13 10*3/uL 0.83-4.51 [facility] Basophil percentageOrdered B y: Dr. Black on 09-11-2022 Basophil percentage 325 mg/dL 74-106 [facility] Basophil percentage 7.1 g/dL 6.4-8.2 [facility] Basophil percentage 0.60 mg/dL 0.20-1.00 [facility] Basophil percentage 134 mmol/L 136-145 [facility] Basophil percentage 3.9 mmol/L 3.5-5.1 [facility] Basophil percentage 100 mmol/L 98-107 [facility] Basophil percentage 1.2 mmol/L 0.4-2.0 [facility] Basophils (Bld) [#/Vol] 14.8 10*3/uL 4.4-11.0 [facility] Basophils (Bld) [#/Vol] 12.7 10*3/uL 2.0-7.7 [facility] Basophils/100 WBC (Bld) 85.8 % 47-70 [facility] Basophils/100 WBC (Bld) 0.8 % 0-5 [facility] Basophils/100 WBC (Bld) 0.6 % 0-1 [facility] Bilirubin [Mass/Vol] 0.60 mg/dL 0.20-1.00 [facility] Comment on above: For patients on eltr ombopag therapy, use of Dimension [place] TBIL is not recommended. Chloride [Moles/Vol] 100 mmol/L 98-107 [facility] Eosinophils/100 WBC (Bld) 0.8 % 0-5 [facility] Glucose [Mass/Vol] 325 mg/dL 74-106 [facility] Comment on above: Glucose result great er than or equal to 200 mg/dLsuggests DIABETES MELLITUS per A.D.A. criteria. Lactate [Moles/Vol] 1.2 mmol/L 0.4-2.0 [facility] Neutrophils (Bld) [#/Vol] 12.7 10*3/uL 2.0-7.7 [facility] Neutrophils/100 WBC (Bld) 85.8 % 47-70 [facility] Potassium [Moles/Vol] 3.9 mmol/L 3.5-5.1 [facility] Protein [Mass/Vol] 7.1 g/dL 6.4-8.2 [facility] Sodium [Moles/Vol] 134 mmol/L 136-145 [facility] WBC (Bld) [#/Vol] 14.8 10*3/uL 4.4-11.0 [facility] Basophil percentage 0 SEEN /hpf 0-5 [facility] Bilirubin Test strip Ql (U)O rdered By: Dr. Black on 09-11-2022 Bilirubin Ql (U) Negative Negative [facility] Blood erythrocytes count (nu mber/volume)Ordered By: Dr. Black on 09-11-2022 RBC (Bld) [#/Vol] 5.71 10*6/uL 4.2-5.4 [facility] Blood hemoglobin measurement (mass/volume)Ordered By: Dr. Black on 09-11-2022 Hemoglobin (Bld) [Mass/Vol] 15.7 g/dL 12.0-15.0 [facility] Blood lymphocytes/100 leukoc ytesOrdered By: Dr. Black on 09-11-2022 Lymphocytes/100 WBC (Bld) 7.6 % 19-41 [facility] Blood monocytes/100 leukocyt esOrdered By: Dr. Black on 09-11-2022 Monocytes/100 WBC (Bld) 4.7 % 0-10 [facility] Blood platelet mean volumeOr dered By: Dr. Black on 09-11-2022 Platelet mean volume (Bld) [Entitic vol] 9.3 fL 6.2-12.0 [facility] Determination of erythrocyte mean corpuscular volume (MCV)Ordered By: Dr. Black on 09-11-2022 MCV (RBC) [Entitic vol] 83.7 fL 81-99 [facility] Hematocrit Auto (Bld) [Volum e fraction]Ordered By: Dr. Black on 09-11-2022 Hematocrit (Bld) [Volume fraction] 47.8 % 37-47 [facility] Ketones Test strip Ql (U)Ord ered By: Dr. Black on 09-11-2022 Ketones Ql (U) Negative Negative [facility] Laboratory - Chemistry and C hemistry - challengeOrdered By: Dr. Black on 09-11-2022 ALP [Catalytic activity/Vol] 115 U/L 45-117 [facility] ALT [Catalytic activity/Vol] 21 U/L 13-56 [facility] CO2 [Moles/Vol] 31.0 mmol/L 21.0-32.0 [facility] Globulin (S) [Mass/Vol] 4.1 g/dL 2.2-4.2 [facility] Lipase [Catalytic activity/Vol] 172 U/L 73-393 [facility] Urea nitrogen/Creatinine [Mass ratio] 14.1 mg/mg 10-20 [facility] Laboratory - Hematology and Cell countsOrdered By: Dr. Black on 09-11-2022 Erythrocyte distribution width (RBC) [Entitic vol] 38.4 fL 35.1-43.9 [facility] Erythrocyte distribution width (RBC) [Ratio] 12.8 % 11.6-14.6 [facility] Immature granulocytes/100 WBC (Bld) 0.500 % 0.0-0.9 [facility] Comment on above: IG% - Immature Granu locytes (promyelocytes, myelocytes and metamyelocytes) > 1% indicates that a LEFT SHIFT is Present. MCH (RBC) [Entitic mass] 27.5 pg 27.0-32.0 [facility] Nucleated RBC/100 WBC (Bld) [Ratio] 0 % 0-5 [facility] MCHC Auto (RBC) [Mass/Vol]Or dered By: Dr. Black on 09-11-2022 MCHC (RBC) [Mass/Vol] 32.8 g/dL 32-36 [facility] Mucus LM Ql (Urine sed)Order ed By: Dr. Black on 09-11-2022 Mucus Ql (Urine sed) 0 SEEN /hpf [facility] Nitrite Test strip Ql (U)Ord ered By: Dr. Black on 09-11-2022 Nitrite Ql (U) Negative Negative [facility] No Panel InformationOrdered By: Dr. Black on 09-11-2022 Estimated Creatinine Clearance Calc 91.16 ml/min [facility] Estimated GFR (MDRD) Amer 112 mL/min >60 [facility] Comment on above: GFR Calc Estimated GFR (MDRD) Non-Af Amer 93 mL/min >60 [facility] Comment on above: Non- GFR Calc 27.5 pg 27.0-32.0 [facility] 12.8 % 11.6-14.6 [facility] 38.4 fl 35.1-43.9 [facility] 0.500 % 0.0-0.9 [facility] 0 % 0-5 [facility] 93 mL/min >60 [facility] 112 mL/min >60 [facility] 91.16 ml/min [facility] 14.1 RATIO 10-20 [facility] 4.1 g/dL 2.2-4.2 [facility] 172 U/L 73-393 [facility] 115 U/L 45-117 [facility] 21 U/L 13-56 [facility] 31.0 mmol/L 21.0-32.0 [facility] Platelets bldOrdered By: Dr. Black on 09-11-2022 Platelets (Bld) [#/Vol] 290 10*3/uL 150-450 [facility] Protein Test strip Ql (U)Ord ered By: Dr. Black on 09-11-2022 Protein Ql (U) 100 mg/dl Negative [facility] Serum or plasma albumin xiomara urement (mass/volume)Ordered By: Dr. Black on 09-11-2022 Albumin [Mass/Vol] 3.0 g/dL 3.2-5.0 [facility] Serum or plasma albumin/glob ulin mass ratioOrdered By: Dr. Black on 09-11-2022 Albumin/Globulin [Mass ratio] 0.7 {ratio} 0.9-2.4 [facility] Serum or plasma calcium xiomara urement (mass/volume)Ordered By: Dr. Black on 09-11-2022 Calcium [Mass/Vol] 8.9 mg/dL 8.5-10.1 [facility] Serum or plasma creatinine m easurement (mass/volume)Ordered By: Dr. Black on 09-11-2022 Creatinine [Mass/Vol] 0.71 mg/dL 0.55-1.02 [facility] Comment on above: The validity of the calculated GFR & GFRAA in patients over 70 years has not been determined. Clinical correlation is essential. Serum or plasma urea nitroge n measurement (mass/volume)Ordered By: Dr. Black on 09-11-2022 Urea nitrogen [Mass/Vol] 10 mg/dL 7-18 [facility] Squamous epithelial cells de tection in urine sediment by light microscopyOrdered By: Dr. Blcak on 09-11-2022 Epithelial cells.squamous LM Ql (Urine sed) 0-5 SEEN /hpf 5-10 [facility] Thin prep Papanicolaou smear with manual screeningOrdered By: Dr. Black on 09-11-2022 Thin prep Papanicolaou smear with manual screening 18 U/L 15-37 [facility] Thin prep Papanicolaou smear with manual screening 3 5-15 [facility] Urine blood detectionOrdered By: Dr. Black on 09-11-2022 RBC Ql (U) 25 /ul Negative [facility] RBC Ql (U) 0 SEEN /hpf 0-5 [facility] Urine clarityOrdered By: Dr. Black on 09-11-2022 Clarity (U) Clear Clear [facility] Urine color determinationOrd ered By: Dr. Black on 09-11-2022 Color (U) Yellow Yellow [facility] Urine glucose detectionOrder ed By: Dr. Black on 09-11-2022 Glucose Ql (U) 1000 mg/dl Normal [facility] Urine leukocyte esterase det ection by dipstickOrdered By: Dr. Black on 09-11-2022 Leukocyte esterase Test strip Ql (U) Negative Negative [facility] Urine pHOrdered By: Dr. Artemio jean on 09-11-2022 pH (U) 7.0 [pH] 5.0 - 8.0 [facility] Urine sediment bacteria coun t by microscopy (number/high power field)Ordered By: Dr. Black on 09-11-2022 Bacteria LM.HPF (Urine sed) [#/Area] 0 /[HPF] None Seen [facility] Urine specific gravity measu rementOrdered By: Dr. Black on 09-11-2022 Specific gravity (U) [Rel density] 1.015 1.002-1.03 0 [facility] Urobilinogen Auto test strip Ql (U)Ordered By: Dr. Black on 09-11-2022 Urobilinogen Ql (U) Normal mg/dl Normal [facility] Absolute lymphocyte countOrd ered By: Dr. Christina on 09-09-2022 Lymphocytes Auto (Unsp spec) [#/Vol] 1.70 10*3/uL 0.83-4.51 [facility] Basophil percentageOrdered B y: Dr. Christina on 09-09-2022 Basophil percentage 0-5 SEEN /hpf 0-5 [facility] Basophil percentage 306 mg/dL 74-106 [facility] Basophil percentage 6.7 g/dL 6.4-8.2 [facility] Basophil percentage 0.70 mg/dL 0.20-1.00 [facility] Basophil percentage 134 mmol/L 136-145 [facility] Basophil percentage 3.5 mmol/L 3.5-5.1 [facility] Basophil percentage 98 mmol/L 98-107 [facility] Basophils (Bld) [#/Vol] 9.0 10*3/uL 4.4-11.0 [facility] Basophils (Bld) [#/Vol] 6.5 10*3/uL 2.0-7.7 [facility] Basophils/100 WBC (Bld) 1.0 % 0-1 [facility] Basophils/100 WBC (Bld) 72.3 % 47-70 [facility] Basophils/100 WBC (Bld) 1.4 % 0-5 [facility] Bilirubin [Mass/Vol] 0.70 mg/dL 0.20-1.00 [facility] Comment on above: For patients on eltr ombopag therapy, use of Dimension [place] TBIL is not recommended. Chloride [Moles/Vol] 98 mmol/L 98-107 [facility] Eosinophils/100 WBC (Bld) 1.4 % 0-5 [facility] Glucose [Mass/Vol] 306 mg/dL 74-106 [facility] Comment on above: Glucose result great er than or equal to 200 mg/dLsuggests DIABETES MELLITUS per A.D.A. criteria. Neutrophils (Bld) [#/Vol] 6.5 10*3/uL 2.0-7.7 [facility] Neutrophils/100 WBC (Bld) 72.3 % 47-70 [facility] Potassium [Moles/Vol] 3.5 mmol/L 3.5-5.1 [facility] Protein [Mass/Vol] 6.7 g/dL 6.4-8.2 [facility] Sodium [Moles/Vol] 134 mmol/L 136-145 [facility] WBC (Bld) [#/Vol] 9.0 10*3/uL 4.4-11.0 [facility] Bilirubin Test strip Ql (U)O rdered By: Dr. Christina on 09-09-2022 Bilirubin Ql (U) Negative Negative [facility] Blood erythrocytes count (nu mber/volume)Ordered By: Dr. Christina on 09-09-2022 RBC (Bld) [#/Vol] 5.26 10*6/uL 4.2-5.4 [facility] Blood hemoglobin measurement (mass/volume)Ordered By: Dr. Christina on 09-09-2022 Hemoglobin (Bld) [Mass/Vol] 14.3 g/dL 12.0-15.0 [facility] Blood lymphocytes/100 leukoc ytesOrdered By: Dr. Christina on 09-09-2022 Lymphocytes/100 WBC (Bld) 19.0 % 19-41 [facility] Blood monocytes/100 leukocyt esOrdered By: Dr. Christina on 09-09-2022 Monocytes/100 WBC (Bld) 6.0 % 0-10 [facility] Blood platelet mean volumeOr dered By: Dr. Christina on 09-09-2022 Platelet mean volume (Bld) [Entitic vol] 9.2 fL 6.2-12.0 [facility] Determination of erythrocyte mean corpuscular volume (MCV)Ordered By: Dr. Christina on 09-09-2022 MCV (RBC) [Entitic vol] 83.1 fL 81-99 [facility] Direct bilirubinOrdered By: Dr. Christina on 09-09-2022 Bilirubin.direct [Mass/Vol] 0.19 mg/dL 0.00-0.30 [facility] Hematocrit Auto (Bld) [Volum e fraction]Ordered By: Dr. Christina on 09-09-2022 Hematocrit (Bld) [Volume fraction] 43.7 % 37-47 [facility] Ketones Test strip Ql (U)Ord ered By: Dr. Christina on 09-09-2022 Ketones Ql (U) Negative Negative [facility] Laboratory - Chemistry and C hemistry - challengeOrdered By: Dr. Christina on 09-09-2022 ALP [Catalytic activity/Vol] 109 U/L 45-117 [facility] ALT [Catalytic activity/Vol] 18 U/L 13-56 [facility] CO2 [Moles/Vol] 31.0 mmol/L 21.0-32.0 [facility] Globulin (S) [Mass/Vol] 3.9 g/dL 2.2-4.2 [facility] Lipase [Catalytic activity/Vol] 47 U/L 73-393 [facility] Urea nitrogen/Creatinine [Mass ratio] 9.0 mg/mg 10-20 [facility] Laboratory - Hematology and Cell countsOrdered By: Dr. Christina on 09-09-2022 Erythrocyte distribution width (RBC) [Entitic vol] 38.2 fL 35.1-43.9 [facility] Erythrocyte distribution width (RBC) [Ratio] 12.7 % 11.6-14.6 [facility] Immature granulocytes/100 WBC (Bld) 0.300 % 0.0-0.9 [facility] Comment on above: IG% - Immature Granu locytes (promyelocytes, myelocytes and metamyelocytes) > 1% indicates that a LEFT SHIFT is Present. MCH (RBC) [Entitic mass] 27.2 pg 27.0-32.0 [facility] Nucleated RBC/100 WBC (Bld) [Ratio] 0 % 0-5 [facility] MCHC Auto (RBC) [Mass/Vol]Or dered By: Dr. Christina on 09-09-2022 MCHC (RBC) [Mass/Vol] 32.7 g/dL 32-36 [facility] Mucus LM Ql (Urine sed)Order ed By: Dr. Christina on 09-09-2022 Mucus Ql (Urine sed) 0 SEEN /hpf [facility] Nitrite Test strip Ql (U)Ord ered By: Dr. Christina on 09-09-2022 Nitrite Ql (U) Negative Negative [facility] No Panel InformationOrdered By: Dr. Christina on 09-09-2022 Estimated Creatinine Clearance Calc 96.60 ml/min [facility] Estimated GFR (MDRD) Amer 120 mL/min >60 [facility] Comment on above: GFR Calc Estimated GFR (MDRD) Non-Af Amer 99 mL/min >60 [facility] Comment on above: Non- GFR Calc Troponin I High Sensitivity 14 pg/mL 3.0-54.0 [facility] Comment on above: Please Note: New Junie t Units and Gender Specific Reference Ranges. For more information see Policy Stat Procedure [place] High Sensitivity Troponin (TNIH) and attachments. 27.2 pg 27.0-32.0 [facility] 12.7 % 11.6-14.6 [facility] 38.2 fl 35.1-43.9 [facility] 0.300 % 0.0-0.9 [facility] 0 % 0-5 [facility] 99 mL/min >60 [facility] 120 mL/min >60 [facility] 96.60 ml/min [facility] 9.0 RATIO 10-20 [facility] 3.9 g/dL 2.2-4.2 [facility] 47 U/L 73-393 [facility] 14 pg/mL 3.0-54.0 [facility] 109 U/L 45-117 [facility] 18 U/L 13-56 [facility] 31.0 mmol/L 21.0-32.0 [facility] Platelets bldOrdered By: Dr. Christina on 09-09-2022 Platelets (Bld) [#/Vol] 290 10*3/uL 150-450 [facility] Protein Test strip Ql (U)Ord ered By: Dr. Christina on 09-09-2022 Protein Ql (U) 100 mg/dl Negative [facility] Serum or plasma albumin xiomara urement (mass/volume)Ordered By: Dr. Christina on 09-09-2022 Albumin [Mass/Vol] 2.8 g/dL 3.2-5.0 [facility] Serum or plasma calcium xiomara urement (mass/volume)Ordered By: Dr. Christina on 09-09-2022 Calcium [Mass/Vol] 8.8 mg/dL 8.5-10.1 [facility] Serum or plasma creatinine m easurement (mass/volume)Ordered By: Dr. Christina on 09-09-2022 Creatinine [Mass/Vol] 0.67 mg/dL 0.55-1.02 [facility] Comment on above: The validity of the calculated GFR & GFRAA in patients over 70 years has not been determined. Clinical correlation is essential. Serum or plasma urea nitroge n measurement (mass/volume)Ordered By: Dr. Christina on 09-09-2022 Urea nitrogen [Mass/Vol] 6 mg/dL 7-18 [facility] Squamous epithelial cells de tection in urine sediment by light microscopyOrdered By: Dr. Christina on 09-09-2022 Epithelial cells.squamous LM Ql (Urine sed) 5-10 SEEN /hpf 5-10 [facility] Thin prep Papanicolaou smear with manual screeningOrdered By: Dr. Christina on 09-09-2022 Thin prep Papanicolaou smear with manual screening 18 U/L 15-37 [facility] Thin prep Papanicolaou smear with manual screening 5 5-15 [facility] Urine blood detectionOrdered By: Dr. Christina on 09-09-2022 RBC Ql (U) 25 /ul Negative [facility] RBC Ql (U) 0-5 SEEN /hpf 0-5 [facility] Urine clarityOrdered By: Dr. Christina on 09-09-2022 Clarity (U) Sl. Cloudy Clear [facility] Urine color determinationOrd ered By: Dr. Christina on 09-09-2022 Color (U) Yellow Yellow [facility] Urine glucose detectionOrder ed By: Dr. Christina on 09-09-2022 Glucose Ql (U) 1000 mg/dl Normal [facility] Urine leukocyte esterase det ection by dipstickOrdered By: Dr. Christina on 09-09-2022 Leukocyte esterase Test strip Ql (U) 25 /ul Negative [facility] Urine pHOrdered By: Dr. Davis maxwell on 09-09-2022 pH (U) 8.0 [pH] 5.0 - 8.0 [facility] Urine sediment bacteria coun t by microscopy (number/high power field)Ordered By: Dr. Christina on 09-09-2022 Bacteria LM.HPF (Urine sed) [#/Area] 0 /[HPF] None Seen [facility] Urine specific gravity measu rementOrdered By: Dr. Christina on 09-09-2022 Specific gravity (U) [Rel density] 1.015 1.002-1.03 0 [facility] Urobilinogen Auto test strip Ql (U)Ordered By: Dr. Christina on 09-09-2022 Urobilinogen Ql (U) Normal mg/dl Normal [facility] Absolute lymphocyte countOrd ered By: Dr. Hanley on 09-05-2022 Lymphocytes Auto (Unsp spec) [#/Vol] 1.04 10*3/uL 0.83-4.51 [facility] Basophil percentageOrdered B y: Dr. Hanley on 09-05-2022 Basophil percentage 330 mg/dL 74-106 [facility] Basophil percentage 134 mmol/L 136-145 [facility] Basophil percentage 3.7 mmol/L 3.5-5.1 [facility] Basophil percentage 100 mmol/L 98-107 [facility] Basophils (Bld) [#/Vol] 8.5 10*3/uL 4.4-11.0 [facility] Basophils (Bld) [#/Vol] 6.8 10*3/uL 2.0-7.7 [facility] Basophils/100 WBC (Bld) 0.8 % 0-1 [facility] Basophils/100 WBC (Bld) 80.1 % 47-70 [facility] Chloride [Moles/Vol] 100 mmol/L 98-[address] [facility] Eosinophils/100 WBC (Bld) 0.8 % 0-5 [facility] Glucose [Mass/Vol] 330 mg/dL 74-106 [facility] Comment on above: Glucose result great er than or equal to 200 mg/dLsuggests DIABETES MELLITUS per A.D.A. criteria. Neutrophils (Bld) [#/Vol] 6.8 10*3/uL 2.0-7.7 [facility] Neutrophils/100 WBC (Bld) 80.1 % 47-70 [facility] Potassium [Moles/Vol] 3.7 mmol/L 3.5-5.1 [facility] Sodium [Moles/Vol] 134 mmol/L 136-145 [facility] WBC (Bld) [#/Vol] 8.5 10*3/uL 4.4-11.0 [facility] Blood erythrocytes count (nu mber/volume)Ordered By: Dr. Hanley on 09-05-2022 RBC (Bld) [#/Vol] 5.21 10*6/uL 4.2-5.4 [facility] Blood hemoglobin measurement (mass/volume)Ordered By: Dr. Hanley on 09-05-2022 Hemoglobin (Bld) [Mass/Vol] 14.3 g/dL 12.0-15.0 [facility] Blood lymphocytes/100 leukoc ytesOrdered By: Dr. Hanley on 09-05-2022 Lymphocytes/100 WBC (Bld) 12.2 % 19-41 [facility] Blood monocytes/100 leukocyt esOrdered By: Dr. Hanley on 09-05-2022 Monocytes/100 WBC (Bld) 5.7 % 0-10 [facility] Blood platelet mean volumeOr dered By: Dr. Hanley on 09-05-2022 Platelet mean volume (Bld) [Entitic vol] 9.6 fL 6.2-12.0 [facility] Determination of erythrocyte mean corpuscular volume (MCV)Ordered By: Dr. Hanley on 09-05-2022 MCV (RBC) [Entitic vol] 84.3 fL 81-99 [facility] Hematocrit Auto (Bld) [Volum e fraction]Ordered By: Dr. Hanley on 09-05-2022 Hematocrit (Bld) [Volume fraction] 43.9 % 37-47 [facility] Laboratory - Chemistry and C hemistry - challengeOrdered By: Dr. Hanley on 09-05-2022 CO2 [Moles/Vol] 30.0 mmol/L 21.0-32.0 [facility] Urea nitrogen/Creatinine [Mass ratio] 5.7 mg/mg 10-20 [facility] Laboratory - Hematology and Cell countsOrdered By: Dr. Hanley on 09-05-2022 Erythrocyte distribution width (RBC) [Entitic vol] 38.6 fL 35.1-43.9 [facility] Erythrocyte distribution width (RBC) [Ratio] 12.6 % 11.6-14.6 [facility] Immature granulocytes/100 WBC (Bld) 0.400 % 0.0-0.9 [facility] Comment on above: IG% - Immature Granu locytes (promyelocytes, myelocytes and metamyelocytes) > 1% indicates that a LEFT SHIFT is Present. MCH (RBC) [Entitic mass] 27.4 pg 27.0-32.0 [facility] Nucleated RBC/100 WBC (Bld) [Ratio] 0 % 0-5 [facility] Laboratory - Microbiology an d Antimicrobial susceptibilityOrdered By: Dr. Rawls on 09-05-2022 Bacteria identified Cx Nom (Bld) No growth in 5 days. [facility] MCHC Auto (RBC) [Mass/Vol]Or dered By: Dr. Hanley on 09-05-2022 MCHC (RBC) [Mass/Vol] 32.6 g/dL 32-36 [facility] No Panel InformationOrdered By: Dr. Hanley on 09-05-2022 Estimated Creatinine Clearance Calc 92.46 ml/min [facility] Estimated GFR (MDRD) Amer 114 mL/min >60 [facility] Comment on above: GFR Calc Estimated GFR (MDRD) Non-Af Amer 94 mL/min >60 [facility] Comment on above: Non- GFR Calc 27.4 pg 27.0-32.0 [facility] 12.6 % 11.6-14.6 [facility] 38.6 fl 35.1-43.9 [facility] 0.400 % 0.0-0.9 [facility] 0 % 0-5 [facility] 94 mL/min >60 [facility] 114 mL/min >60 [facility] 92.46 ml/min [facility] 5.7 RATIO 10-20 [facility] 30.0 mmol/L 21.0-32.0 [facility] No Panel InformationOrdered By: Dr. Rawls on 09-05-2022 No growth in 5 days. [facility] Platelets bldOrdered By: Dr. Hanley on 09-05-2022 Platelets (Bld) [#/Vol] 234 10*3/uL 150-450 [facility] Serum or plasma calcium xiomara urement (mass/volume)Ordered By: Dr. Hanley on 09-05-2022 Calcium [Mass/Vol] 9.1 mg/dL 8.5-10.1 [facility] Serum or plasma creatinine m easurement (mass/volume)Ordered By: Dr. Hanley on 09-05-2022 Creatinine [Mass/Vol] 0.70 mg/dL 0.55-1.02 [facility] Comment on above: The validity of the calculated GFR & GFRAA in patients over 70 years has not been determined. Clinical correlation is essential. Serum or plasma urea nitroge n measurement (mass/volume)Ordered By: Dr. Hanley on 09-05-2022 Urea nitrogen [Mass/Vol] 4 mg/dL 7-18 [facility] Thin prep Papanicolaou smear with manual screeningOrdered By: Dr. Hanley on 09-05-2022 Thin prep Papanicolaou smear with manual screening 4 5-15 [facility] Glucose Glucometer (BldC) [M ass/Vol]Ordered By: Dr. Forde on 09-02-2022 Glucose [Mass/Vol] 211 mg/dL 74-106 [facility] Comment on above: MANAGEMENT OF PATIEN T CARE PER NURSING PROTOCOL Absolute lymphocyte countOrd ered By: Dr. Forde on 08-31-2022 Lymphocytes Auto (Unsp spec) [#/Vol] 1.81 10*3/uL 0.83-4.51 [facility] Bacteria identified Cx Nom ( U)Ordered By: Dr. Rawls on 08-31-2022 Culture, urine Positive [facility] Basophil percentageOrdered B y: Dr. Forde on 08-31-2022 Basophil percentage 221 mg/dL 74-106 [facility] Basophil percentage 137 mmol/L 136-145 [facility] Basophil percentage 3.7 mmol/L 3.5-5.1 [facility] Basophil percentage 108 mmol/L 98-107 [facility] Basophils (Bld) [#/Vol] 6.8 10*3/uL 4.4-11.0 [facility] Basophils (Bld) [#/Vol] 4.4 10*3/uL 2.0-7.7 [facility] Basophils/100 WBC (Bld) 0.7 % 0-1 [facility] Basophils/100 WBC (Bld) 64.6 % 47-70 [facility] Basophils/100 WBC (Bld) 1.3 % 0-5 [facility] Chloride [Moles/Vol] 108 mmol/L 98-107 [facility] Eosinophils/100 WBC (Bld) 1.3 % 0-5 [facility] Glucose [Mass/Vol] 221 mg/dL 74-106 [facility] Comment on above: Glucose result great er than or equal to 200 mg/dLsuggests DIABETES MELLITUS per A.D.A. criteria. Neutrophils (Bld) [#/Vol] 4.4 10*3/uL 2.0-7.7 [facility] Neutrophils/100 WBC (Bld) 64.6 % 47-70 [facility] Potassium [Moles/Vol] 3.7 mmol/L 3.5-5.1 [facility] Sodium [Moles/Vol] 137 mmol/L 136-145 [facility] WBC (Bld) [#/Vol] 6.8 10*3/uL 4.4-11.0 [facility] Blood erythrocytes count (nu mber/volume)Ordered By: Dr. Forde on 08-31-2022 RBC (Bld) [#/Vol] 4.86 10*6/uL 4.2-5.4 [facility] Blood hemoglobin measurement (mass/volume)Ordered By: Dr. Forde on 08-31-2022 Hemoglobin (Bld) [Mass/Vol] 13.6 g/dL 12.0-15.0 [facility] Blood lymphocytes/100 leukoc ytesOrdered By: Dr. Forde on 08-31-2022 Lymphocytes/100 WBC (Bld) 26.6 % 19-41 [facility] Blood monocytes/100 leukocyt esOrdered By: Dr. Forde on 08-31-2022 Monocytes/100 WBC (Bld) 6.5 % 0-10 [facility] Blood platelet mean volumeOr dered By: Dr. Forde on 08-31-2022 Platelet mean volume (Bld) [Entitic vol] 9.1 fL 6.2-12.0 [facility] Culture, urineOrdered By: Dr Carmelo Rawls on 08-31-2022 Bacteria identified Cx Nom (U) Positive [facility] Determination of erythrocyte mean corpuscular volume (MCV)Ordered By: Dr. Forde on 08-31-2022 MCV (RBC) [Entitic vol] 85.4 fL 81-99 [facility] Hematocrit Auto (Bld) [Volum e fraction]Ordered By: Dr. Forde on 08-31-2022 Hematocrit (Bld) [Volume fraction] 41.5 % 37-47 [facility] Laboratory - Chemistry and C hemistry - challengeOrdered By: Dr. Forde on 08-31-2022 CO2 [Moles/Vol] 26.0 mmol/L 21.0-32.0 [facility] Urea nitrogen/Creatinine [Mass ratio] 14.6 mg/mg 10-20 [facility] Laboratory - Hematology and Cell countsOrdered By: Dr. Forde on 08-31-2022 Erythrocyte distribution width (RBC) [Entitic vol] 39.9 fL 35.1-43.9 [facility] Erythrocyte distribution width (RBC) [Ratio] 13.0 % 11.6-14.6 [facility] Immature granulocytes/100 WBC (Bld) 0.300 % 0.0-0.9 [facility] Comment on above: IG% - Immature Granu locytes (promyelocytes, myelocytes and metamyelocytes) > 1% indicates that a LEFT SHIFT is Present. MCH (RBC) [Entitic mass] 28.0 pg 27.0-32.0 [facility] Nucleated RBC/100 WBC (Bld) [Ratio] 0 % 0-5 [facility] MCHC Auto (RBC) [Mass/Vol]Or dered By: Dr. Forde on 08-31-2022 MCHC (RBC) [Mass/Vol] 32.8 g/dL 32-36 [facility] No Panel InformationOrdered By: Dr. Forde on 08-31-2022 Estimated Creatinine Clearance Calc 104.39 ml/min [facility] Estimated GFR (MDRD) Amer 131 mL/min >60 [facility] Comment on above: GFR Calc Estimated GFR (MDRD) Non-Af Amer 109 mL/min >60 [facility] Comment on above: Non- GFR Calc 28.0 pg 27.0-32.0 [facility] 13.0 % 11.6-14.6 [facility] 39.9 fl 35.1-43.9 [facility] 0.300 % 0.0-0.9 [facility] 0 % 0-5 [facility] 109 mL/min >60 [facility] 131 mL/min >60 [facility] 104.39 ml/min [facility] 14.6 RATIO 10-20 [facility] 26.0 mmol/L 21.0-32.0 [facility] Platelets bldOrdered By: Dr. Forde on 08-31-2022 Platelets (Bld) [#/Vol] 227 10*3/uL 150-450 [facility] Serum or plasma calcium xiomara urement (mass/volume)Ordered By: Dr. Forde on 08-31-2022 Calcium [Mass/Vol] 8.8 mg/dL 8.5-10.1 [facility] Serum or plasma creatinine m easurement (mass/volume)Ordered By: Dr. Forde on 08-31-2022 Creatinine [Mass/Vol] 0.62 mg/dL 0.55-1.02 [facility] Comment on above: The validity of the calculated GFR & GFRAA in patients over 70 years has not been determined. Clinical correlation is essential. Serum or plasma urea nitroge n measurement (mass/volume)Ordered By: Dr. Forde on 08-31-2022 Urea nitrogen [Mass/Vol] 9 mg/dL 7-18 [facility] Thin prep Papanicolaou smear with manual screeningOrdered By: Dr. Forde on 08-31-2022 Thin prep Papanicolaou smear with manual screening 3 5-15 [facility] Absolute lymphocyte countOrd ered By: Dr. Rawls on 08-30-2022 Lymphocytes Auto (Unsp spec) [#/Vol] 1.33 10*3/uL 0.83-4.51 [facility] Basophil percentageOrdered B y: Dr. Rawls on 08-30-2022 Basophil percentage 1.1 mmol/L 0.4-2.0 [facility] Lactate [Moles/Vol] 1.1 mmol/L 0.4-2.0 [facility] Basophil percentage 7.1 g/dL 6.4-8.2 [facility] Basophil percentage 0.70 mg/dL 0.20-1.00 [facility] Basophils/100 WBC (Bld) 0.6 % 0-1 [facility] Bilirubin [Mass/Vol] 0.70 mg/dL 0.20-1.00 [facility] Comment on above: For patients on eltr ombopag therapy, use of Dimension [place] TBIL is not recommended. Chloride [Moles/Vol] 96 mmol/L 98-107 [facility] Eosinophils/100 WBC (Bld) 0.5 % 0-5 [facility] Glucose [Mass/Vol] 400 mg/dL 74-106 [facility] Comment on above: Glucose result great er than or equal to 200 mg/dLsuggests DIABETES MELLITUS per A.D.A. criteria. Lactate [Moles/Vol] 2.2 mmol/L 0.4-2.0 [facility] Comment on above: Critical Result(s) C alled at: 15:31:02 08/30/2022 by: Eileen Mauricio to [employer]. Results read back by same. Neutrophils (Bld) [#/Vol] 6.7 10*3/uL 2.0-7.7 [facility] Neutrophils/100 WBC (Bld) 77.4 % 47-70 [facility] Potassium [Moles/Vol] 4.0 mmol/L 3.5-5.1 [facility] Protein [Mass/Vol] 7.1 g/dL 6.4-8.2 [facility] Sodium [Moles/Vol] 132 mmol/L 136-145 [facility] WBC (Bld) [#/Vol] 8.6 10*3/uL 4.4-11.0 [facility] Blood erythrocytes count (nu mber/volume)Ordered By: Dr. Rawls on 08-30-2022 RBC (Bld) [#/Vol] 5.43 10*6/uL 4.2-5.4 [facility] Blood hemoglobin measurement (mass/volume)Ordered By: Dr. Rawls on 08-30-2022 Hemoglobin (Bld) [Mass/Vol] 15.0 g/dL 12.0-15.0 [facility] Blood lymphocytes/100 leukoc ytesOrdered By: Dr. Rawls on 08-30-2022 Lymphocytes/100 WBC (Bld) 15.4 % 19-41 [facility] Blood monocytes/100 leukocyt esOrdered By: Dr. Rawls on 08-30-2022 Monocytes/100 WBC (Bld) 5.9 % 0-10 [facility] Blood platelet mean volumeOr dered By: Dr. Rawls on 08-30-2022 Platelet mean volume (Bld) [Entitic vol] 9.1 fL 6.2-12.0 [facility] Determination of erythrocyte mean corpuscular volume (MCV)Ordered By: Dr. Rawls on 08-30-2022 MCV (RBC) [Entitic vol] 83.6 fL 81-99 [facility] Hematocrit Auto (Bld) [Volum e fraction]Ordered By: Dr. Rawls on 08-30-2022 Hematocrit (Bld) [Volume fraction] 45.4 % 37-47 [facility] INR in Blood by Coagulation assayOrdered By: Dr. Rawls on 08-30-2022 INR Coag (Bld) [Relative time] 1.0 {INR} [facility] Laboratory - Chemistry and C hemistry - challengeOrdered By: Dr. Rawls on 08-30-2022 ALP [Catalytic activity/Vol] 133 U/L 45-117 [facility] ALT [Catalytic activity/Vol] 17 U/L 13-56 [facility] CO2 [Moles/Vol] 31.0 mmol/L 21.0-32.0 [facility] Globulin (S) [Mass/Vol] 4.1 g/dL 2.2-4.2 [facility] Urea nitrogen/Creatinine [Mass ratio] 10.1 mg/mg 10-20 [facility] Laboratory - CoagulationOrde red By: Dr. Rawls on 08-30-2022 aPTT Coag (Bld) [Time] 26.7 s 24.1-36.2 [facility] PT Coag (PPP) [Time] 12.6 s 11.7-14.9 [facility] Laboratory - Hematology and Cell countsOrdered By: Dr. Rawls on 08-30-2022 Erythrocyte distribution width (RBC) [Entitic vol] 39.0 fL 35.1-43.9 [facility] Erythrocyte distribution width (RBC) [Ratio] 12.9 % 11.6-14.6 [facility] Immature granulocytes/100 WBC (Bld) 0.200 % 0.0-0.9 [facility] Comment on above: IG% - Immature Granu locytes (promyelocytes, myelocytes and metamyelocytes) > 1% indicates that a LEFT SHIFT is Present. MCH (RBC) [Entitic mass] 27.6 pg 27.0-32.0 [facility] Nucleated RBC/100 WBC (Bld) [Ratio] 0 % 0-5 [facility] MCHC Auto (RBC) [Mass/Vol]Or dered By: Dr. Rawls on 08-30-2022 MCHC (RBC) [Mass/Vol] 33.0 g/dL 32-36 [facility] No Panel InformationOrdered By: Dr. Rawls on 08-30-2022 Estimated Creatinine Clearance Calc 65.38 ml/min [facility] Estimated GFR (MDRD) Amer 76 mL/min >60 [facility] Comment on above: GFR Calc Estimated GFR (MDRD) Non-Af Amer 63 mL/min >60 [facility] Comment on above: Non- GFR Calc 12.6 SECONDS 11.7-14.9 [facility] 26.7 Seconds 24.1-36.2 [facility] 4.1 g/dL 2.2-4.2 [facility] 133 U/L 45-117 [facility] 17 U/L 13-56 [facility] Platelets bldOrdered By: Dr. Rawls on 08-30-2022 Platelets (Bld) [#/Vol] 266 10*3/uL 150-450 [facility] Serum or plasma albumin xiomara urement (mass/volume)Ordered By: Dr. Rawls on 08-30-2022 Albumin [Mass/Vol] 3.0 g/dL 3.2-5.0 [facility] Serum or plasma albumin/glob ulin mass ratioOrdered By: Dr. Rawls on 08-30-2022 Albumin/Globulin [Mass ratio] 0.7 {ratio} 0.9-2.4 [facility] Serum or plasma calcium xiomara urement (mass/volume)Ordered By: Dr. Rawls on 08-30-2022 Calcium [Mass/Vol] 9.1 mg/dL 8.5-10.1 [facility] Serum or plasma creatinine m easurement (mass/volume)Ordered By: Dr. Rawls on 08-30-2022 Creatinine [Mass/Vol] 0.99 mg/dL 0.55-1.02 [facility] Comment on above: The validity of the calculated GFR & GFRAA in patients over 70 years has not been determined. Clinical correlation is essential. Serum or plasma urea nitroge n measurement (mass/volume)Ordered By: Dr. Rawls on 08-30-2022 Urea nitrogen [Mass/Vol] 10 mg/dL 7-18 [facility] Thin prep Papanicolaou smear with manual screeningOrdered By: Dr. Rawls on 08-30-2022 Thin prep Papanicolaou smear with manual screening 15 U/L 15-37 [facility] Thin prep Papanicolaou smear with manual screening 5 5-15 [facility] Whole blood hemoglobin A1c/t otal hemoglobin ratio (mass fraction)Ordered By: Dr. Forde on 08-30-2022 HbA1c (Bld) [Mass fraction] 11.5 % 3.8-5.6 [facility] Comment on above: Normal < 5.7 % Predi abetic 5.7 - 6.4 % Diabetic >or= 6.5 % Please note range changes. Absolute lymphocyte countOrd ered By: Dr. Black on 08-14-2022 Lymphocytes Auto (Unsp spec) [#/Vol] 1.35 10*3/uL 0.83-4.51 [facility] Basophil percentageOrdered B y: Dr. Black on 08-14-2022 Basophil percentage 331 mg/dL 74-106 [facility] Basophil percentage 134 mmol/L 136-145 [facility] Basophil percentage 3.7 mmol/L 3.5-5.1 [facility] Basophil percentage 101 mmol/L 98-107 [facility] Basophils (Bld) [#/Vol] 9.7 10*3/uL 4.4-11.0 [facility] Basophils (Bld) [#/Vol] 7.6 10*3/uL 2.0-7.7 [facility] Basophils/100 WBC (Bld) 0.6 % 0-1 [facility] Basophils/100 WBC (Bld) 78.3 % 47-70 [facility] Basophils/100 WBC (Bld) 0.8 % 0-5 [facility] Chloride [Moles/Vol] 101 mmol/L 98-107 [facility] Eosinophils/100 WBC (Bld) 0.8 % 0-5 [facility] Glucose [Mass/Vol] 331 mg/dL 74-106 [facility] Comment on above: Glucose result great er than or equal to 200 mg/dLsuggests DIABETES MELLITUS per A.D.A. criteria. Neutrophils (Bld) [#/Vol] 7.6 10*3/uL 2.0-7.7 [facility] Neutrophils/100 WBC (Bld) 78.3 % 47-70 [facility] Potassium [Moles/Vol] 3.7 mmol/L 3.5-5.1 [facility] Comment on above: Slight Hemolysis, Re sult may be falsely increased. Sodium [Moles/Vol] 134 mmol/L 136-145 [facility] WBC (Bld) [#/Vol] 9.7 10*3/uL 4.4-11.0 [facility] Blood erythrocytes count (nu mber/volume)Ordered By: Dr. Black on 08-14-2022 RBC (Bld) [#/Vol] 5.16 10*6/uL 4.2-5.4 [facility] Blood hemoglobin measurement (mass/volume)Ordered By: Dr. Black on 08-14-2022 Hemoglobin (Bld) [Mass/Vol] 14.6 g/dL 12.0-15.0 [facility] Blood lymphocytes/100 leukoc ytesOrdered By: Dr. Black on 08-14-2022 Lymphocytes/100 WBC (Bld) 13.9 % 19-41 [facility] Blood monocytes/100 leukocyt esOrdered By: Dr. Black on 08-14-2022 Monocytes/100 WBC (Bld) 5.8 % 0-10 [facility] Blood platelet mean volumeOr dered By: Dr. Black on 08-14-2022 Platelet mean volume (Bld) [Entitic vol] 9.8 fL 6.2-12.0 [facility] Comment on above: FIBRIN NOTED Determination of erythrocyte mean corpuscular volume (MCV)Ordered By: Dr. Black on 08-14-2022 MCV (RBC) [Entitic vol] 83.5 fL 81-99 [facility] Hematocrit Auto (Bld) [Volum e fraction]Ordered By: Dr. Black on 08-14-2022 Hematocrit (Bld) [Volume fraction] 43.1 % 37-47 [facility] Laboratory - Chemistry and C hemistry - challengeOrdered By: Dr. Black on 08-14-2022 CO2 [Moles/Vol] 27.0 mmol/L 21.0-32.0 [facility] Urea nitrogen/Creatinine [Mass ratio] 8.6 mg/mg 10-20 [facility] Laboratory - Hematology and Cell countsOrdered By: Dr. Black on 08-14-2022 Erythrocyte distribution width (RBC) [Entitic vol] 37.5 fL 35.1-43.9 [facility] Erythrocyte distribution width (RBC) [Ratio] 12.3 % 11.6-14.6 [facility] Immature granulocytes/100 WBC (Bld) 0.600 % 0.0-0.9 [facility] Comment on above: IG% - Immature Granu locytes (promyelocytes, myelocytes and metamyelocytes) > 1% indicates that a LEFT SHIFT is Present. MCH (RBC) [Entitic mass] 28.3 pg 27.0-32.0 [facility] Nucleated RBC/100 [facility] (Bld) [[facility]] 0.2 % [facility] [Mass/Vol]Or dered By: Dr. Black on 08-14-2022 MCHC (RBC) [Mass/Vol] 33.9 g/dL 32-36 [facility] No Panel InformationOrdered By: Dr. Black on 08-14-2022 Estimated Creatinine Clearance Calc 62.33 ml/min [facility] Estimated GFR (MDRD) Amer 71 mL/min >60 [facility] Comment on above: GFR Calc Estimated GFR (MDRD) Non-Af Amer 59 mL/min >60 [facility] Comment on above: Non- GFR Calc 28.3 pg 27.0-32.0 [facility] 12.3 % 11.6-14.6 [facility] 37.5 fl 35.1-43.9 [facility] 0.600 % 0.0-0.9 [facility] 0.2 % 0-5 [facility] 59 mL/min >60 [facility] 71 mL/min >60 [facility] 62.33 ml/min [facility] 8.6 RATIO 10-20 [facility] 27.0 mmol/L 21.0-32.0 [facility] Platelets bldOrdered By: Dr. Black on 08-14-2022 Platelets (Bld) [#/Vol] 220 10*3/uL 150-450 [facility] Serum or plasma calcium xiomara urement (mass/volume)Ordered By: Dr. Black on 08-14-2022 Calcium [Mass/Vol] 8.9 mg/dL 8.5-10.1 [facility] Serum or plasma creatinine m easurement (mass/volume)Ordered By: Dr. Black on 08-14-2022 Creatinine [Mass/Vol] 1.05 mg/dL 0.55-1.02 [facility] Comment on above: The validity of the calculated GFR & GFRAA in patients over 70 years has not been determined. Clinical correlation is essential. Serum or plasma urea nitroge n measurement (mass/volume)Ordered By: Dr. Black on 08-14-2022 Urea nitrogen [Mass/Vol] 9 mg/dL 7-18 [facility] Thin prep Papanicolaou smear with manual screeningOrdered By: Dr. Black on 08-14-2022 Thin prep Papanicolaou smear with manual screening 6 5-15 [facility] Beta hCG serum qualOrdered B y: Dr. Ng on 08-10-2022 Beta HCG ( test) Ql Negative [facility] Absolute lymphocyte countOrd ered By: Darlyn Galeano on 08-06-2022 Lymphocytes Auto (Unsp spec) [#/Vol] 1.46 10*3/uL 0.83-4.51 [facility] Basophil percentageOrdered B y: Darlyn Galeano on 08-06-2022 Basophil percentage 290 mg/dL 74-106 [facility] Basophil percentage 136 mmol/L 136-145 [facility] Basophil percentage 3.5 mmol/L 3.5-5.1 [facility] Basophil percentage 101 mmol/L 98-107 [facility] Basophils (Bld) [#/Vol] 8.7 10*3/uL 4.4-11.0 [facility] Basophils (Bld) [#/Vol] 6.5 10*3/uL 2.0-7.7 [facility] Basophils/100 WBC (Bld) 0.8 % 0-1 [facility] Basophils/100 WBC (Bld) 74.5 % 47-70 [facility] Basophils/100 WBC (Bld) 0.7 % 0-5 [facility] Chloride [Moles/Vol] 101 mmol/L 98-107 [facility] Eosinophils/100 WBC (Bld) 0.7 % 0-5 [facility] Glucose [Mass/Vol] 290 mg/dL 74-106 [facility] Comment on above: Glucose result great er than or equal to 200 mg/dLsuggests DIABETES MELLITUS per A.D.A. criteria. Neutrophils (Bld) [#/Vol] 6.5 10*3/uL 2.0-7.7 [facility] Neutrophils/100 WBC (Bld) 74.5 % 47-70 [facility] Potassium [Moles/Vol] 3.5 mmol/L 3.5-5.1 [facility] Sodium [Moles/Vol] 136 mmol/L 136-145 [facility] WBC (Bld) [#/Vol] 8.7 10*3/uL 4.4-11.0 [facility] Blood erythrocytes count (nu mber/volume)Ordered By: Darlyn Galeano on 08-06-2022 RBC (Bld) [#/Vol] 5.62 10*6/uL 4.2-5.4 [facility] Blood hemoglobin measurement (mass/volume)Ordered By: Darlyn Galeano on 08-06-2022 Hemoglobin (Bld) [Mass/Vol] 15.7 g/dL 12.0-15.0 [facility] Blood lymphocytes/100 leukoc ytesOrdered By: Darlyn Galeano on 08-06-2022 Lymphocytes/100 WBC (Bld) 16.8 % 19-41 [facility] Blood monocytes/100 leukocyt esOrdered By: Darlyn Galeano on 08-06-2022 Monocytes/100 WBC (Bld) 6.9 % 0-10 [facility] Blood platelet mean volumeOr dered By: Darlyn Galeano on 08-06-2022 Platelet mean volume (Bld) [Entitic vol] 9.4 fL 6.2-12.0 [facility] Determination of erythrocyte mean corpuscular volume (MCV)Ordered By: Darlyn Galeano on 08-06-2022 MCV (RBC) [Entitic vol] 85.6 fL 81-99 [facility] Hematocrit Auto (Bld) [Volum e fraction]Ordered By: Darlyn Galeano on 08-06-2022 Hematocrit (Bld) [Volume fraction] 48.1 % 37-47 [facility] Laboratory - Chemistry and C hemistry - challengeOrdered By: Darlyn Galeano on 08-06-2022 CO2 [Moles/Vol] 29.0 mmol/L 21.0-32.0 [facility] Urea nitrogen/Creatinine [Mass ratio] 10.4 mg/mg 10-20 [facility] Laboratory - Hematology and Cell countsOrdered By: Darlyn Galeano on 08-06-2022 Erythrocyte distribution width (RBC) [Entitic vol] 38.5 fL 35.1-43.9 [facility] Erythrocyte distribution width (RBC) [Ratio] 12.2 % 11.6-14.6 [facility] Immature granulocytes/100 WBC (Bld) 0.300 % 0.0-0.9 [facility] Comment on above: IG% - Immature Granu locytes (promyelocytes, myelocytes and metamyelocytes) > 1% indicates that a LEFT SHIFT is Present. MCH (RBC) [Entitic mass] 27.9 pg 27.0-32.0 [facility] Nucleated RBC/100 WBC (Bld) [Ratio] 0 % 0-5 [facility] MCHC Auto (RBC) [Mass/Vol]Or dered By: Darlyn Galeano on 08-06-2022 MCHC (RBC) [Mass/Vol] 32.6 g/dL 32-36 [facility] No Panel InformationOrdered By: Darlyn Galeano on 08-06-2022 Estimated Creatinine Clearance Calc 85.00 ml/min [facility] Estimated GFR (MDRD) Amer 101 mL/min >60 [facility] Comment on above: GFR Calc Estimated GFR (MDRD) Non-Af Amer 84 mL/min >60 [facility] Comment on above: Non- GFR Calc 27.9 pg 27.0-32.0 [facility] 12.2 % 11.6-14.6 [facility] 38.5 fl 35.1-43.9 [facility] 0.300 % 0.0-0.9 [facility] 0 % 0-5 [facility] 84 mL/min >60 [facility] 101 mL/min >60 [facility] 85.00 ml/min [facility] 10.4 RATIO 10-20 [facility] 29.0 mmol/L 21.0-32.0 [facility] Platelets bldOrdered By: Renee Galeano on 08-06-2022 Platelets (Bld) [#/Vol] 269 10*3/uL 150-450 [facility] Serum or plasma calcium xiomara urement (mass/volume)Ordered By: Darlyn Galeano on 08-06-2022 Calcium [Mass/Vol] 9.0 mg/dL 8.5-10.1 [facility] Serum or plasma creatinine m easurement (mass/volume)Ordered By: Darlyn Galeano on 08-06-2022 Creatinine [Mass/Vol] 0.77 mg/dL 0.55-1.02 [facility] Comment on above: The validity of the calculated GFR & GFRAA in patients over 70 years has not been determined. Clinical correlation is essential. Serum or plasma urea nitroge n measurement (mass/volume)Ordered By: Darlyn Galeano on 08-06-2022 Urea nitrogen [Mass/Vol] 8 mg/dL 7-18 [facility] Thin prep Papanicolaou smear with manual screeningOrdered By: Darlyn Galeano on 08-06-2022 Thin prep Papanicolaou smear with manual screening 6 5-15 [facility] Absolute lymphocyte countOrd ered By: Vidal Solorio on 08-03-2022 Lymphocytes Auto (Unsp spec) [#/Vol] 0.99 10*3/uL 0.83-4.51 [facility] Basophil percentageOrdered B y: Vidal Solorio on 08-03-2022 Basophil percentage 0-5 SEEN /hpf 0-5 [facility] Basophil percentage 270 mg/dL 74-106 [facility] Basophil percentage 7.6 g/dL 6.4-8.2 [facility] Basophil percentage 1.10 mg/dL 0.20-1.00 [facility] Basophil percentage 135 mmol/L 136-145 [facility] Basophil percentage 4.5 mmol/L 3.5-5.1 [facility] Basophil percentage 99 mmol/L 98-107 [facility] Basophils (Bld) [#/Vol] 12.4 10*3/uL 4.4-11.0 [facility] Basophils (Bld) [#/Vol] 10.8 10*3/uL 2.0-7.7 [facility] Basophils/100 WBC (Bld) 0.6 % 0-1 [facility] Basophils/100 WBC (Bld) 87.4 % 47-70 [facility] Basophils/100 WBC (Bld) 0.4 % 0-5 [facility] Bilirubin [Mass/Vol] 1.10 mg/dL 0.20-1.00 [facility] Comment on above: For patients on eltr ombopag therapy, use of Dimension [place] TBIL is not recommended. Chloride [Moles/Vol] 99 mmol/L 98-107 [facility] Eosinophils/100 WBC (Bld) 0.4 % 0-5 [facility] Glucose [Mass/Vol] 270 mg/dL 74-106 [facility] Comment on above: Glucose result great er than or equal to 200 mg/dLsuggests DIABETES MELLITUS per A.D.A. criteria. Neutrophils (Bld) [#/Vol] 10.8 10*3/uL 2.0-7.7 [facility] Neutrophils/100 WBC (Bld) 87.4 % 47-70 [facility] Potassium [Moles/Vol] 4.5 mmol/L 3.5-5.1 [facility] Protein [Mass/Vol] 7.6 g/dL 6.4-8.2 [facility] Sodium [Moles/Vol] 135 mmol/L 136-145 [facility] WBC (Bld) [#/Vol] 12.4 10*3/uL 4.4-11.0 [facility] Bilirubin Test strip Ql (U)O rdered By: Vidal Solorio on 08-03-2022 Bilirubin Ql (U) Negative Negative [facility] Blood erythrocytes count (nu mber/volume)Ordered By: iVdal Solorio on 08-03-2022 RBC (Bld) [#/Vol] 5.73 10*6/uL 4.2-5.4 [facility] Blood hemoglobin measurement (mass/volume)Ordered By: Vidal Solorio on 08-03-2022 Hemoglobin (Bld) [Mass/Vol] 16.2 g/dL 12.0-15.0 [facility] Blood lymphocytes/100 leukoc ytesOrdered By: Vidal Solorio on 08-03-2022 Lymphocytes/100 WBC (Bld) 8.0 % 19-41 [facility] Blood monocytes/100 leukocyt esOrdered By: Vidal Solorio on 08-03-2022 Monocytes/100 WBC (Bld) 3.2 % 0-10 [facility] Blood platelet mean volumeOr dered By: Vidal Solorio on 08-03-2022 Platelet mean volume (Bld) [Entitic vol] 9.9 fL 6.2-12.0 [facility] Determination of erythrocyte mean corpuscular volume (MCV)Ordered By: Vidal Solorio on 08-03-2022 MCV (RBC) [Entitic vol] 84.5 fL 81-99 [facility] Hematocrit Auto (Bld) [Volum e fraction]Ordered By: Vidal Solorio on 08-03-2022 Hematocrit (Bld) [Volume fraction] 48.4 % 37-47 [facility] Ketones Test strip Ql (U)Ord ered By: Vidal Solorio on 08-03-2022 Ketones Ql (U) 15 mg/dl Negative [facility] Laboratory - Chemistry and C hemistry - challengeOrdered By: Vidal Solorio on 08-03-2022 ALP [Catalytic activity/Vol] 120 U/L 45-117 [facility] ALT [Catalytic activity/Vol] 15 U/L 13-56 [facility] CO2 [Moles/Vol] 27.0 mmol/L 21.0-32.0 [facility] Globulin (S) [Mass/Vol] 4.5 g/dL 2.2-4.2 [facility] Lipase [Catalytic activity/Vol] 68 U/L 73-393 [facility] Urea nitrogen/Creatinine [Mass ratio] 15.6 mg/mg 10-20 [facility] Laboratory - Hematology and Cell countsOrdered By: Vidal Solorio on 08-03-2022 Erythrocyte distribution width (RBC) [Entitic vol] 37.5 fL 35.1-43.9 [facility] Erythrocyte distribution width (RBC) [Ratio] 12.3 % 11.6-14.6 [facility] Immature granulocytes/100 WBC (Bld) 0.400 % 0.0-0.9 [facility] Comment on above: IG% - Immature Granu locytes (promyelocytes, myelocytes and metamyelocytes) > 1% indicates that a LEFT SHIFT is Present. MCH (RBC) [Entitic mass] 28.3 pg 27.0-32.0 [facility] Nucleated RBC/100 WBC (Bld) [Ratio] 0 % 0-5 [facility] MCHC Auto (RBC) [Mass/Vol]Or dered By: Vidal Solorio on 08-03-2022 MCHC (RBC) [Mass/Vol] 33.5 g/dL 32-36 [facility] Mucus LM Ql (Urine sed)Order ed By: Vidal Solorio on 08-03-2022 Mucus Ql (Urine sed) 0 SEEN /hpf [facility] Nitrite Test strip Ql (U)Ord ered By: Vidal Solorio on 08-03-2022 Nitrite Ql (U) Negative Negative [facility] No Panel InformationOrdered By: Vidal Solorio on 08-03-2022 Troponin I High Sensitivity 12 pg/mL 3.0-54.0 [facility] Comment on above: Please Note: New Junie t Units and Gender Specific Reference Ranges. For more information see Policy Stat Procedure [place] High Sensitivity Troponin (TNIH) and attachments. 12 pg/mL 3.0-54.0 [facility] Estimated Creatinine Clearance Calc 102.27 ml/min [facility] Estimated GFR (MDRD) Amer 126 mL/min >60 [facility] Comment on above: GFR Calc Estimated GFR (MDRD) Non-Af Amer 104 mL/min >60 [facility] Comment on above: Non- GFR Calc 28.3 pg 27.0-32.0 [facility] 12.3 % 11.6-14.6 [facility] 37.5 fl 35.1-43.9 [facility] 0.400 % 0.0-0.9 [facility] 0 % 0-5 [facility] 104 mL/min >60 [facility] 126 mL/min >60 [facility] 102.27 ml/min [facility] 15.6 RATIO 10-20 [facility] 4.5 g/dL 2.2-4.2 [facility] 68 U/L 73-393 [facility] 120 U/L 45-117 [facility] 15 U/L 13-56 [facility] 27.0 mmol/L 21.0-32.0 [facility] Platelets bldOrdered By: Roxi Solorio on 08-03-2022 Platelets (Bld) [#/Vol] 233 10*3/uL 150-450 [facility] Protein Test strip Ql (U)Ord ered By: Vidal Solorio on 08-03-2022 Protein Ql (U) 100 mg/dl Negative [facility] Serum or plasma albumin xiomara urement (mass/volume)Ordered By: Vidal Solorio on 08-03-2022 Albumin [Mass/Vol] 3.1 g/dL 3.2-5.0 [facility] Serum or plasma albumin/glob ulin mass ratioOrdered By: Vidal Solorio on 08-03-2022 Albumin/Globulin [Mass ratio] 0.7 {ratio} 0.9-2.4 [facility] Serum or plasma calcium xiomara urement (mass/volume)Ordered By: Vidal Solorio on 08-03-2022 Calcium [Mass/Vol] 9.4 mg/dL 8.5-10.1 [facility] Serum or plasma creatinine m easurement (mass/volume)Ordered By: Vidal Solorio on 08-03-2022 Creatinine [Mass/Vol] 0.64 mg/dL 0.55-1.02 [facility] Comment on above: The validity of the calculated GFR & GFRAA in patients over 70 years has not been determined. Clinical correlation is essential. Serum or plasma urea nitroge n measurement (mass/volume)Ordered By: Vidal Solorio on 08-03-2022 Urea nitrogen [Mass/Vol] 10 mg/dL 7-18 [facility] Squamous epithelial cells de tection in urine sediment by light microscopyOrdered By: Vidal Solorio on 08-03-2022 Epithelial cells.squamous LM Ql (Urine sed) 0-5 SEEN /hpf 5-10 [facility] Thin prep Papanicolaou smear with manual screeningOrdered By: Vidal Solorio on 08-03-2022 Thin prep Papanicolaou smear with manual screening 15 U/L 15-37 [facility] Thin prep Papanicolaou smear with manual screening 9 5-15 [facility] Urine blood detectionOrdered By: Vidal Solorio on 08-03-2022 RBC Ql (U) 50 /ul Negative [facility] RBC Ql (U) 0-5 SEEN /hpf 0-5 [facility] Urine clarityOrdered By: Roxi Solorio on 08-03-2022 Clarity (U) Clear Clear [facility] Urine color determinationOrd ered By: Vidal Solorio on 08-03-2022 Color (U) Yellow Yellow [facility] Urine glucose detectionOrder ed By: Vidal Solorio on 08-03-2022 Glucose Ql (U) 1000 mg/dl Normal [facility] Urine leukocyte esterase det ection by dipstickOrdered By: Vidal Solorio on 08-03-2022 Leukocyte esterase Test strip Ql (U) 100 /ul Negative [facility] Urine pHOrdered By: Vidal wray on 08-03-2022 pH (U) 7.0 [pH] 5.0 - 8.0 [facility] Urine sediment bacteria coun t by microscopy (number/high power field)Ordered By: Vidal Solorio on 08-03-2022 Bacteria LM.HPF (Urine sed) [#/Area] 0 /[HPF] None Seen [facility] Urine specific gravity measu rementOrdered By: Vidal Solorio on 08-03-2022 Specific gravity (U) [Rel density] 1.010 1.002-1.03 0 [facility] Urobilinogen Auto test strip Ql (U)Ordered By: Vidal Solorio on 08-03-2022 Urobilinogen Ql (U) Normal mg/dl Normal [facility] Absolute lymphocyte countOrd ered By: Dr. Mcneal on 07-25-2022 Lymphocytes Auto (Unsp spec) [#/Vol] 1.18 10*3/uL 0.83-4.51 [facility] Basophil percentageOrdered B y: Dr. Mcneal on 07-25-2022 Basophil percentage 415 mg/dL 74-106 [facility] Basophil percentage 6.6 g/dL 6.4-8.2 [facility] Basophil percentage 0.40 mg/dL 0.20-1.00 [facility] Basophil percentage 135 mmol/L 136-145 [facility] Basophil percentage 4.1 mmol/L 3.5-5.1 [facility] Basophil percentage 101 mmol/L 98-107 [facility] Bilirubin [Mass/Vol] 0.40 mg/dL 0.20-1.00 [facility] Comment on above: For patients on eltr ombopag therapy, use of Dimension [place] TBIL is not recommended. Chloride [Moles/Vol] 101 mmol/L 98-[address] [facility] Glucose [Mass/Vol] 415 mg/dL 74-106 [facility] Comment on above: Glucose result great er than or equal to 200 mg/dLsuggests DIABETES MELLITUS per A.D.A. criteria. Potassium [Moles/Vol] 4.1 mmol/L 3.5-5.1 [facility] Comment on above: Slight Hemolysis, Re sult may be falsely increased. Protein [Mass/Vol] 6.6 g/dL 6.4-8.2 [facility] Sodium [Moles/Vol] 135 mmol/L 136-145 [facility] Basophils (Bld) [#/Vol] 8.6 10*3/uL 4.4-11.0 [facility] Basophils (Bld) [#/Vol] 6.8 10*3/uL 2.0-7.7 [facility] Basophils/100 WBC (Bld) 0.7 % 0-1 [facility] Basophils/100 WBC (Bld) 78.2 % 47-70 [facility] Basophils/100 WBC (Bld) 1.6 % 0-5 [facility] Eosinophils/100 WBC (Bld) 1.6 % 0-5 [facility] Neutrophils (Bld) [#/Vol] 6.8 10*3/uL 2.0-7.7 [facility] Neutrophils/100 WBC (Bld) 78.2 % 47-70 [facility] WBC (Bld) [#/Vol] 8.6 10*3/uL 4.4-11.0 [facility] Blood erythrocytes count (nu mber/volume)Ordered By: Dr. Mcneal on 07-25-2022 RBC (Bld) [#/Vol] 5.96 10*6/uL 4.2-5.4 [facility] Blood hemoglobin measurement (mass/volume)Ordered By: Dr. Mcneal on 07-25-2022 Hemoglobin (Bld) [Mass/Vol] 16.9 g/dL 12.0-15.0 [facility] Blood lymphocytes/100 leukoc ytesOrdered By: Dr. Mcneal on 07-25-2022 Lymphocytes/100 WBC (Bld) 13.7 % 19-41 [facility] Blood monocytes/100 leukocyt esOrdered By: Dr. Mcneal on 07-25-2022 Monocytes/100 WBC (Bld) 5.2 % 0-10 [facility] Blood platelet mean volumeOr dered By: Dr. Mcneal on 07-25-2022 Platelet mean volume (Bld) [Entitic vol] 10.2 fL 6.2-12.0 [facility] Determination of erythrocyte mean corpuscular volume (MCV)Ordered By: Dr. Mcneal on 07-25-2022 MCV (RBC) [Entitic vol] 84.6 fL 81-99 [facility] Hematocrit Auto (Bld) [Volum e fraction]Ordered By: Dr. Mcneal on 07-25-2022 Hematocrit (Bld) [Volume fraction] 50.4 % 37-47 [facility] Laboratory - Chemistry and C hemistry - challengeOrdered By: Dr. Mcneal on 07-25-2022 ALP [Catalytic activity/Vol] 113 U/L 45-117 [facility] ALT [Catalytic activity/Vol] 15 U/L 13-56 [facility] CO2 [Moles/Vol] 27.0 mmol/L 21.0-32.0 [facility] Globulin (S) [Mass/Vol] 4.0 g/dL 2.2-4.2 [facility] Lipase [Catalytic activity/Vol] 104 U/L 73-393 [facility] Urea nitrogen/Creatinine [Mass ratio] 14.9 mg/mg 10-20 [facility] Laboratory - Hematology and Cell countsOrdered By: Dr. Mcneal on 07-25-2022 Erythrocyte distribution width (RBC) [Entitic vol] 38.3 fL 35.1-43.9 [facility] Erythrocyte distribution width (RBC) [Ratio] 12.4 % 11.6-14.6 [facility] Immature granulocytes/100 WBC (Bld) 0.600 % 0.0-0.9 [facility] Comment on above: IG% - Immature Granu locytes (promyelocytes, myelocytes and metamyelocytes) > 1% indicates that a LEFT SHIFT is Present. MCH (RBC) [Entitic mass] 28.4 pg 27.0-32.0 [facility] Nucleated RBC/100 WBC (Bld) [Ratio] 0 % 0-5 [facility] MCHC Auto (RBC) [Mass/Vol]Or dered By: Dr. Mcneal on 07-25-2022 MCHC (RBC) [Mass/Vol] 33.5 g/dL 32-36 [facility] No Panel InformationOrdered By: Dr. Mcneal on 07-25-2022 Estimated Creatinine Clearance Calc 81.81 ml/min [facility] Estimated GFR (MDRD) Amer 97 mL/min >60 [facility] Comment on above: GFR Calc Estimated GFR (MDRD) Non-Af Amer 80 mL/min >60 [facility] Comment on above: Non- GFR Calc Troponin I High Sensitivity 10 pg/mL 3.0-54.0 [facility] Comment on above: Please Note: New Junie t Units and Gender Specific Reference Ranges. For more information see Policy Stat Procedure [place] High Sensitivity Troponin (TNIH) and attachments. 80 mL/min >60 [facility] 97 mL/min >60 [facility] 81.81 ml/min [facility] 14.9 RATIO 10-20 [facility] 4.0 g/dL 2.2-4.2 [facility] 104 U/L 73-393 [facility] 10 pg/mL 3.0-54.0 [facility] 113 U/L 45-117 [facility] 15 U/L 13-56 [facility] 27.0 mmol/L 21.0-32.0 [facility] 28.4 pg 27.0-32.0 [facility] 12.4 % 11.6-14.6 [facility] 38.3 fl 35.1-43.9 [facility] 0.600 % 0.0-0.9 [facility] 0 % 0-5 [facility] Platelets bldOrdered By: Dr. Mcneal on 07-25-2022 Platelets (Bld) [#/Vol] 163 10*3/uL 150-450 [facility] Serum or plasma albumin xiomara urement (mass/volume)Ordered By: Dr. Mcneal on 07-25-2022 Albumin [Mass/Vol] 2.6 g/dL 3.2-5.0 [facility] Serum or plasma albumin/glob ulin mass ratioOrdered By: Dr. Mcneal on 07-25-2022 Albumin/Globulin [Mass ratio] 0.6 {ratio} 0.9-2.4 [facility] Serum or plasma calcium xiomara urement (mass/volume)Ordered By: Dr. Mcneal on 07-25-2022 Calcium [Mass/Vol] 8.6 mg/dL 8.5-10.1 [facility] Serum or plasma creatinine m easurement (mass/volume)Ordered By: Dr. Mcneal on 07-25-2022 Creatinine [Mass/Vol] 0.80 mg/dL 0.55-1.02 [facility] Comment on above: The validity of the calculated GFR & GFRAA in patients over 70 years has not been determined. Clinical correlation is essential. Serum or plasma urea nitroge n measurement (mass/volume)Ordered By: Dr. Mcneal on 07-25-2022 Urea nitrogen [Mass/Vol] 12 mg/dL 7-18 [facility] Thin prep Papanicolaou smear with manual screeningOrdered By: Dr. Mcneal on 07-25-2022 Thin prep Papanicolaou smear with manual screening 17 U/L 15-37 [facility] Comment on above: Slight Hemolysis, Re sult may be falsely increased. Thin prep Papanicolaou smear with manual screening 7 5-15 [facility] Absolute lymphocyte countOrd ered By: ED PROVIDER on 05-19-2022 Lymphocytes Auto (Unsp spec) [#/Vol] 1.58 10*3/uL 0.83-4.51 [facility] Basophil percentageOrdered B y: ED PROVIDER on 05-19-2022 Basophil percentage 402 mg/dL 74-106 [facility] Basophil percentage 131 mmol/L 136-145 [facility] Basophil percentage 4.5 mmol/L 3.5-5.1 [facility] Basophil percentage 97 mmol/L 98-107 [facility] Basophils (Bld) [#/Vol] 11.3 10*3/uL 4.4-11.0 [facility] Basophils (Bld) [#/Vol] 9.1 10*3/uL 2.0-7.7 [facility] Basophils/100 WBC (Bld) 0.7 % 0-1 [facility] Basophils/100 WBC (Bld) 79.9 % 47-70 [facility] Basophils/100 WBC (Bld) 1.0 % 0-5 [facility] Chloride [Moles/Vol] 97 mmol/L 98-107 [facility] Eosinophils/100 WBC (Bld) 1.0 % 0-5 [facility] Glucose [Mass/Vol] 402 mg/dL 74-106 [facility] Comment on above: Glucose result great er than or equal to 200 mg/dLsuggests DIABETES MELLITUS per A.D.A. criteria. Neutrophils (Bld) [#/Vol] 9.1 10*3/uL 2.0-7.7 [facility] Neutrophils/100 WBC (Bld) 79.9 % 47-70 [facility] Potassium [Moles/Vol] 4.5 mmol/L 3.5-5.1 [facility] Comment on above: Moderate Hemolysis, Result may be falsely increased. Sodium [Moles/Vol] 131 mmol/L 136-145 [facility] WBC (Bld) [#/Vol] 11.3 10*3/uL 4.4-11.0 [facility] Beta hCG serum qualOrdered B y: ED PROVIDER on 05-19-2022 Beta HCG ( test) Ql Negative [facility] Blood erythrocytes count (nu mber/volume)Ordered By: ED PROVIDER on 05-19-2022 RBC (Bld) [#/Vol] 5.80 10*6/uL 4.2-5.4 [facility] Blood hemoglobin measurement (mass/volume)Ordered By: ED PROVIDER on 05-19-2022 Hemoglobin (Bld) [Mass/Vol] 16.2 g/dL 12.0-15.0 [facility] Blood lymphocytes/100 leukoc ytesOrdered By: ED PROVIDER on 05-19-2022 Lymphocytes/100 WBC (Bld) 13.9 % 19-41 [facility] Blood monocytes/100 leukocyt esOrdered By: ED PROVIDER on 05-19-2022 Monocytes/100 WBC (Bld) 4.0 % 0-10 [facility] Blood platelet mean volumeOr dered By: ED PROVIDER on 05-19-2022 Platelet mean volume (Bld) [Entitic vol] 9.7 fL 6.2-12.0 [facility] Determination of erythrocyte mean corpuscular volume (MCV)Ordered By: ED PROVIDER on 05-19-2022 MCV (RBC) [Entitic vol] 84.3 fL 81-99 [facility] Hematocrit Auto (Bld) [Volum e fraction]Ordered By: ED PROVIDER on 05-19-2022 Hematocrit (Bld) [Volume fraction] 48.9 % 37-47 [facility] Laboratory - Chemistry and C hemistry - challengeOrdered By: ED PROVIDER on 05-19-2022 CO2 [Moles/Vol] 28.0 mmol/L 21.0-32.0 [facility] Urea nitrogen/Creatinine [Mass ratio] 10.2 mg/mg 10-20 [facility] Laboratory - Hematology and Cell countsOrdered By: ED PROVIDER on 05-19-2022 Erythrocyte distribution width (RBC) [Entitic vol] 41.3 fL 35.1-43.9 [facility] Erythrocyte distribution width (RBC) [Ratio] 13.5 % 11.6-14.6 [facility] Immature granulocytes/100 WBC (Bld) 0.500 % 0.0-0.9 [facility] Comment on above: IG% - Immature Granu locytes (promyelocytes, myelocytes and metamyelocytes) > 1% indicates that a LEFT SHIFT is Present. MCH (RBC) [Entitic mass] 27.9 pg 27.0-32.0 [facility] Nucleated RBC/100 WBC (Bld) [Ratio] 0 % 0-5 [facility] MCHC Auto (RBC) [Mass/Vol]Or dered By: ED PROVIDER on 05-19-2022 MCHC (RBC) [Mass/Vol] 33.1 g/dL 32-36 [facility] No Panel InformationOrdered By: ED PROVIDER on 05-19-2022 Estimated Creatinine Clearance Calc 83.91 ml/min [facility] Estimated GFR (MDRD) Amer 100 mL/min >60 [facility] Comment on above: GFR Calc Estimated GFR (MDRD) Non-Af Amer 82 mL/min >60 [facility] Comment on above: Non- GFR Calc 27.9 pg 27.0-32.0 [facility] 13.5 % 11.6-14.6 [facility] 41.3 fl 35.1-43.9 [facility] 0.500 % 0.0-0.9 [facility] 0 % 0-5 [facility] 82 mL/min >60 [facility] 100 mL/min >60 [facility] 83.91 ml/min [facility] 10.2 RATIO 10-20 [facility] 28.0 mmol/L 21.0-32.0 [facility] Platelets bldOrdered By: ED PROVIDER on 05-19-2022 Platelets (Bld) [#/Vol] 260 10*3/uL 150-450 [facility] Serum or plasma calcium xiomara urement (mass/volume)Ordered By: ED PROVIDER on 05-19-2022 Calcium [Mass/Vol] 9.2 mg/dL 8.5-10.1 [facility] Serum or plasma creatinine m easurement (mass/volume)Ordered By: ED PROVIDER on 05-19-2022 Creatinine [Mass/Vol] 0.78 mg/dL 0.55-1.02 [facility] Comment on above: The validity of the calculated GFR & GFRAA in patients over 70 years has not been determined. Clinical correlation is essential. Serum or plasma urea nitroge n measurement (mass/volume)Ordered By: ED PROVIDER on 05-19-2022 Urea nitrogen [Mass/Vol] 8 mg/dL 7-18 [facility] Thin prep Papanicolaou smear with manual screeningOrdered By: ED PROVIDER on 05-19-2022 Thin prep Papanicolaou smear with manual screening 6 5-15 [facility] Absolute lymphocyte countOrd ered By: Conor Martin on 05-09-2022 Lymphocytes Auto (Unsp spec) [#/Vol] 0.43 10*3/uL 0.83-4.51 [facility] Basophil percentageOrdered B y: Conor Martin on 05-09-2022 Basophils/100 WBC (Bld) 0.4 % 0-1 [facility] Bilirubin [Mass/Vol] 1.40 mg/dL 0.20-1.00 [facility] Comment on above: For patients on eltr ombopag therapy, use of Dimension [place] TBIL is not recommended. Chloride [Moles/Vol] 100 mmol/L 98-107 [facility] Eosinophils/100 WBC (Bld) 0.8 % 0-5 [facility] Glucose [Mass/Vol] 364 mg/dL 74-106 [facility] Comment on above: Glucose result great er than or equal to 200 mg/dLsuggests DIABETES MELLITUS per A.D.A. criteria. Neutrophils (Bld) [#/Vol] 9.6 10*3/uL 2.0-7.7 [facility] Neutrophils/100 WBC (Bld) 89.6 % 47-70 [facility] Potassium [Moles/Vol] 4.6 mmol/L 3.5-5.1 [facility] Comment on above: Moderate Hemolysis, Result may be falsely increased. Protein [Mass/Vol] 7.7 g/dL 6.4-8.2 [facility] Sodium [Moles/Vol] 133 mmol/L 136-145 [facility] WBC (Bld) [#/Vol] 10.7 10*3/uL 4.4-11.0 [facility] Blood erythrocytes count (nu mber/volume)Ordered By: Conor Martin on 05-09-2022 RBC (Bld) [#/Vol] 5.49 10*6/uL 4.2-5.4 [facility] Blood hemoglobin measurement (mass/volume)Ordered By: Conor Martin on 05-09-2022 Hemoglobin (Bld) [Mass/Vol] 15.5 g/dL 12.0-15.0 [facility] Blood lymphocytes/100 leukoc ytesOrdered By: Conor Martin on 05-09-2022 Lymphocytes/100 WBC (Bld) 4.0 % 19-41 [facility] Blood manual differential co mment interpretation (narrative result)Ordered By: Conor Martin on 05-09-2022 Manual differential comment Main (Bld) [Interp] SCANNED [facility] Comment on above: LYMPHOPENIA NOTED Blood monocytes/100 leukocyt esOrdered By: Conor Martin on 05-09-2022 Monocytes/100 WBC (Bld) 4.8 % 0-10 [facility] Blood platelet mean volumeOr dered By: Conor Martin on 05-09-2022 Platelet mean volume (Bld) [Entitic vol] 9.6 fL 6.2-12.0 [facility] Determination of erythrocyte mean corpuscular volume (MCV)Ordered By: Conor Martin on 05-09-2022 MCV (RBC) [Entitic vol] 84.9 fL 81-99 [facility] Direct bilirubinOrdered By: Conor Martin on 05-09-2022 Bilirubin.direct [Mass/Vol] 0.18 mg/dL 0.00-0.30 [facility] Hematocrit Auto (Bld) [Volum e fraction]Ordered By: Conor Martin on 05-09-2022 Hematocrit (Bld) [Volume fraction] 46.6 % 37-47 [facility] Influenza virus A and B and SARS-CoV-2 (COVID-19) Ag panel - Upper respiratory specimOrdered By: Conor Martin on 05-09-2022 SARS-CoV-2 & FLU Antigen (Rapid) Influenzae A [facility] Laboratory - Chemistry and C hemistry - challengeOrdered By: Conor Martin on 05-09-2022 ALP [Catalytic activity/Vol] 142 U/L 45-117 [facility] ALT [Catalytic activity/Vol] 17 U/L 13-56 [facility] CO2 [Moles/Vol] 29.0 mmol/L 21.0-32.0 [facility] Globulin (S) [Mass/Vol] 4.5 g/dL 2.2-4.2 [facility] Lipase [Catalytic activity/Vol] 89 U/L 73-393 [facility] Urea nitrogen/Creatinine [Mass ratio] 15.2 mg/mg 10-20 [facility] Laboratory - Hematology and Cell countsOrdered By: Conor Martin on 05-09-2022 Erythrocyte distribution width (RBC) [Entitic vol] 41.5 fL 35.1-43.9 [facility] Erythrocyte distribution width (RBC) [Ratio] 13.5 % 11.6-14.6 [facility] Immature granulocytes/100 WBC (Bld) 0.400 % 0.0-0.9 [facility] Comment on above: IG% - Immature Granu locytes (promyelocytes, myelocytes and metamyelocytes) > 1% indicates that a LEFT SHIFT is Present. MCH (RBC) [Entitic mass] 28.2 pg 27.0-32.0 [facility] Nucleated RBC/100 WBC (Bld) [Ratio] 0 % 0-5 [facility] MCHC Auto (RBC) [Mass/Vol]Or dered By: Conor Martin on 05-09-2022 MCHC (RBC) [Mass/Vol] 33.3 g/dL 32-36 [facility] No Panel InformationOrdered By: Conor Matrin on 05-09-2022 Estimated Creatinine Clearance Calc 90.90 ml/min [facility] Estimated GFR (MDRD) Amer 110 mL/min >60 [facility] Comment on above: GFR Calc Estimated GFR (MDRD) Non-Af Amer 91 mL/min >60 [facility] Comment on above: Non- GFR Calc Platelets bldOrdered By: Jose Martin on 05-09-2022 Platelets (Bld) [#/Vol] 289 10*3/uL 150-450 [facility] Serum or plasma acetone xiomara urement (mass/volume)Ordered By: Conor Martin on 05-09-2022 Acetone [Mass/Vol] Negative NEG [facility] Serum or plasma albumin xiomara urement (mass/volume)Ordered By: Conor Martin on 05-09-2022 Albumin [Mass/Vol] 3.2 g/dL 3.2-5.0 [facility] Serum or plasma calcium xiomara urement (mass/volume)Ordered By: Conor Martin on 05-09-2022 Calcium [Mass/Vol] 9.4 mg/dL 8.5-10.1 [facility] Serum or plasma creatinine m easurement (mass/volume)Ordered By: Conor Martin on 05-09-2022 Creatinine [Mass/Vol] 0.72 mg/dL 0.55-1.02 [facility] Comment on above: The validity of the calculated GFR & GFRAA in patients over 70 years has not been determined. Clinical correlation is essential. Serum or plasma urea nitroge n measurement (mass/volume)Ordered By: Conor Martin on 05-09-2022 Urea nitrogen [Mass/Vol] 11 mg/dL 7-18 [facility] Thin prep Papanicolaou smear with manual screeningOrdered By: Conor Martin on 05-09-2022 Thin prep Papanicolaou smear with manual screening 21 U/L 15-37 [facility] Comment on above: Moderate Hemolysis, Result may be falsely increased. Thin prep Papanicolaou smear with manual screening 4 5-15 [facility] Progress Noteon 05-02-2022 Progress Note CD UPLOADED. IMAGES IN AGFA. Normal [facility] Absolute lymphocyte countOrd ered By: Dr. Mcneal on 04-17-2022 Lymphocytes Auto (Unsp spec) [#/Vol] 1.46 10*3/uL 0.83-4.51 [facility] Basophil percentageOrdered B y: Dr. Mcneal on 04-17-2022 Basophils/100 WBC (Bld) 0.7 % 0-1 [facility] Bilirubin [Mass/Vol] 1.00 mg/dL 0.20-1.00 [facility] Comment on above: For patients on eltr ombopag therapy, use of Dimension [place] TBIL is not recommended. Chloride [Moles/Vol] 100 mmol/L 98-107 [facility] Eosinophils/100 WBC (Bld) 1.2 % 0-5 [facility] Glucose [Mass/Vol] 368 mg/dL 74-106 [facility] Comment on above: Glucose result great er than or equal to 200 mg/dLsuggests DIABETES MELLITUS per A.D.A. criteria. Neutrophils (Bld) [#/Vol] 9.0 10*3/uL 2.0-7.7 [facility] Neutrophils/100 WBC (Bld) 79.1 % 47-70 [facility] Potassium [Moles/Vol] 3.5 mmol/L 3.5-5.1 [facility] Protein [Mass/Vol] 6.6 g/dL 6.4-8.2 [facility] Sodium [Moles/Vol] 136 mmol/L 136-145 [facility] WBC (Bld) [#/Vol] 11.4 10*3/uL 4.4-11.0 [facility] Blood erythrocytes count (nu mber/volume)Ordered By: Dr. Mcneal on 04-17-2022 RBC (Bld) [#/Vol] 5.50 10*6/uL 4.2-5.4 [facility] Blood hemoglobin measurement (mass/volume)Ordered By: Dr. Mcneal on 04-17-2022 Hemoglobin (Bld) [Mass/Vol] 15.9 g/dL 12.0-15.0 [facility] Blood lymphocytes/100 leukoc ytesOrdered By: Dr. Mcneal on 04-17-2022 Lymphocytes/100 WBC (Bld) 12.8 % 19-41 [facility] Blood monocytes/100 leukocyt esOrdered By: Dr. Mcneal on 04-17-2022 Monocytes/100 WBC (Bld) 5.9 % 0-10 [facility] Blood platelet mean volumeOr dered By: Dr. Mcneal on 04-17-2022 Platelet mean volume (Bld) [Entitic vol] 9.4 fL 6.2-12.0 [facility] Determination of erythrocyte mean corpuscular volume (MCV)Ordered By: Dr. Mcneal on 04-17-2022 MCV (RBC) [Entitic vol] 83.3 fL 81-99 [facility] Hematocrit Auto (Bld) [Volum e fraction]Ordered By: Dr. Mcneal on 04-17-2022 Hematocrit (Bld) [Volume fraction] 45.8 % 37-47 [facility] Laboratory - Chemistry and C hemistry - challengeOrdered By: Dr. Mcneal on 04-17-2022 ALP [Catalytic activity/Vol] 132 U/L 45-117 [facility] ALT [Catalytic activity/Vol] 31 U/L 13-56 [facility] CO2 [Moles/Vol] 28.0 mmol/L 21.0-32.0 [facility] Globulin (S) [Mass/Vol] 3.6 g/dL 2.2-4.2 [facility] Urea nitrogen/Creatinine [Mass ratio] 7.8 mg/mg 10-20 [facility] Laboratory - Hematology and Cell countsOrdered By: Dr. Mcneal on 04-17-2022 Erythrocyte distribution width (RBC) [Entitic vol] 38.7 fL 35.1-43.9 [facility] Erythrocyte distribution width (RBC) [Ratio] 12.8 % 11.6-14.6 [facility] Immature granulocytes/100 WBC (Bld) 0.300 % 0.0-0.9 [facility] Comment on above: IG% - Immature Granu locytes (promyelocytes, myelocytes and metamyelocytes) > 1% indicates that a LEFT SHIFT is Present. MCH (RBC) [Entitic mass] 28.9 pg 27.0-32.0 [facility] Nucleated RBC/100 WBC (Bld) [Ratio] 0 % 0-5 [facility] MCHC Auto (RBC) [Mass/Vol]Or dered By: Dr. Mcneal on 04-17-2022 MCHC (RBC) [Mass/Vol] 34.7 g/dL 32-36 [facility] No Panel InformationOrdered By: Dr. Mcneal on 04-17-2022 Estimated Creatinine Clearance Calc 85.00 ml/min [facility] Estimated GFR (MDRD) Amer 102 mL/min >60 [facility] Comment on above: GFR Calc Estimated GFR (MDRD) Non-Af Amer 84 mL/min >60 [facility] Comment on above: Non- GFR Calc Platelets bldOrdered By: Dr. Mcneal on 04-17-2022 Platelets (Bld) [#/Vol] 234 10*3/uL 150-450 [facility] Serum or plasma albumin xiomara urement (mass/volume)Ordered By: Dr. Mcneal on 04-17-2022 Albumin [Mass/Vol] 3.0 g/dL 3.2-5.0 [facility] Serum or plasma albumin/glob ulin mass ratioOrdered By: Dr. Mcneal on 04-17-2022 Albumin/Globulin [Mass ratio] 0.8 {ratio} 0.9-2.4 [facility] Serum or plasma calcium xiomara urement (mass/volume)Ordered By: Dr. Mcneal on 04-17-2022 Calcium [Mass/Vol] 9.0 mg/dL 8.5-10.1 [facility] Serum or plasma creatinine m easurement (mass/volume)Ordered By: Dr. Mcneal on 04-17-2022 Creatinine [Mass/Vol] 0.77 mg/dL 0.55-1.02 [facility] Comment on above: The validity of the calculated GFR & GFRAA in patients over 70 years has not been determined. Clinical correlation is essential. Serum or plasma urea nitroge n measurement (mass/volume)Ordered By: Dr. Mcneal on 04-17-2022 Urea nitrogen [Mass/Vol] 6 mg/dL 7-18 [facility] Thin prep Papanicolaou smear with manual screeningOrdered By: Dr. Mcneal on 04-17-2022 Thin prep Papanicolaou smear with manual screening 25 U/L 15-37 [facility] Thin prep Papanicolaou smear with manual screening 8 5-15 [facility] Absolute lymphocyte countOrd ered By: Dr. Abrams on 03-27-2022 Lymphocytes Auto (Unsp spec) [#/Vol] 1.61 10*3/uL 0.83-4.51 [facility] Basophil percentageOrdered B y: Dr. Abrams on 03-27-2022 Basophils/100 WBC (Bld) 0.7 % 0-1 [facility] Bilirubin [Mass/Vol] 1.20 mg/dL 0.20-1.00 [facility] Comment on above: For patients on eltr ombopag therapy, use of Dimension [place] TBIL is not recommended. Chloride [Moles/Vol] 94 mmol/L 98-107 [facility] Eosinophils/100 WBC (Bld) 1.0 % 0-5 [facility] Glucose [Mass/Vol] 477 mg/dL 74-106 [facility] Comment on above: Critical Result(s) C alled at: 11:26:10 03/27/2022 by: Tc Angeles to Rubén STRATTON (ER). Results read back by same.Glucose result greater than or equal to 200 mg/dLsuggests DIABETES MELLITUS per A.D.A. criteria. Neutrophils (Bld) [#/Vol] 8.9 10*3/uL 2.0-7.7 [facility] Neutrophils/100 WBC (Bld) 80.1 % 47-70 [facility] Potassium [Moles/Vol] 4.5 mmol/L 3.5-5.1 [facility] Protein [Mass/Vol] 7.3 g/dL 6.4-8.2 [facility] Sodium [Moles/Vol] 131 mmol/L 136-145 [facility] WBC (Bld) [#/Vol] 11.2 10*3/uL 4.4-11.0 [facility] Blood erythrocytes count (nu mber/volume)Ordered By: Dr. Abrams on 03-27-2022 RBC (Bld) [#/Vol] 5.95 10*6/uL 4.2-5.4 [facility] Blood hemoglobin measurement (mass/volume)Ordered By: Dr. Abrams on 03-27-2022 Hemoglobin (Bld) [Mass/Vol] 16.6 g/dL 12.0-15.0 [facility] Blood lymphocytes/100 leukoc ytesOrdered By: Dr. Abrams on 03-27-2022 Lymphocytes/100 WBC (Bld) 14.4 % 19-41 [facility] Blood monocytes/100 leukocyt esOrdered By: Dr. Abrams on 03-27-2022 Monocytes/100 WBC (Bld) 3.4 % 0-10 [facility] Blood platelet mean volumeOr dered By: Dr. Abrams on 03-27-2022 Platelet mean volume (Bld) [Entitic vol] 9.6 fL 6.2-12.0 [facility] Determination of erythrocyte mean corpuscular volume (MCV)Ordered By: Dr. Abrams on 03-27-2022 MCV (RBC) [Entitic vol] 82.9 fL 81-99 [facility] Hematocrit Auto (Bld) [Volum e fraction]Ordered By: Dr. Abrams on 03-27-2022 Hematocrit (Bld) [Volume fraction] 49.3 % 37-47 [facility] Laboratory - Chemistry and C hemistry - challengeOrdered By: Dr. Abrams on 03-27-2022 ALP [Catalytic activity/Vol] 152 U/L 45-117 [facility] ALT [Catalytic activity/Vol] 22 U/L 13-56 [facility] CO2 [Moles/Vol] 31.0 mmol/L 21.0-32.0 [facility] Globulin (S) [Mass/Vol] 4.2 g/dL 2.2-4.2 [facility] Lipase [Catalytic activity/Vol] 113 U/L 73-393 [facility] Urea nitrogen/Creatinine [Mass ratio] 14.1 mg/mg 10-20 [facility] Laboratory - Hematology and Cell countsOrdered By: Dr. Abrams on 03-27-2022 Erythrocyte distribution width (RBC) [Entitic vol] 38.0 fL 35.1-43.9 [facility] Erythrocyte distribution width (RBC) [Ratio] 12.7 % 11.6-14.6 [facility] Immature granulocytes/100 WBC (Bld) 0.400 % 0.0-0.9 [facility] Comment on above: IG% - Immature Granu locytes (promyelocytes, myelocytes and metamyelocytes) > 1% indicates that a LEFT SHIFT is Present. MCH (RBC) [Entitic mass] 27.9 pg 27.0-32.0 [facility] Nucleated RBC/100 WBC (Bld) [Ratio] 0 % 0-5 [facility] MCHC Auto (RBC) [Mass/Vol]Or dered By: Dr. Abrams on 03-27-2022 MCHC (RBC) [Mass/Vol] 33.7 g/dL 32-36 [facility] No Panel InformationOrdered By: Dr. Abrams on 03-27-2022 Estimated Creatinine Clearance Calc 77.00 ml/min [facility] Estimated GFR (MDRD) Amer 91 mL/min >60 [facility] Comment on above: GFR Calc Estimated GFR (MDRD) Non-Af Amer 75 mL/min >60 [facility] Comment on above: Non- GFR Calc Platelets bldOrdered By: Dr. Abrams on 03-27-2022 Platelets (Bld) [#/Vol] 251 10*3/uL 150-450 [facility] Serum or plasma albumin xiomara urement (mass/volume)Ordered By: Dr. Abrams on 03-27-2022 Albumin [Mass/Vol] 3.1 g/dL 3.2-5.0 [facility] Serum or plasma albumin/glob ulin mass ratioOrdered By: Dr. Abrasm on 03-27-2022 Albumin/Globulin [Mass ratio] 0.7 {ratio} 0.9-2.4 [facility] Serum or plasma calcium xiomara urement (mass/volume)Ordered By: Dr. Abrams on 03-27-2022 Calcium [Mass/Vol] 9.5 mg/dL 8.5-10.1 [facility] Serum or plasma creatinine m easurement (mass/volume)Ordered By: Dr. Abrams on 03-27-2022 Creatinine [Mass/Vol] 0.85 mg/dL 0.55-1.02 [facility] Comment on above: The validity of the calculated GFR & GFRAA in patients over 70 years has not been determined. Clinical correlation is essential. Serum or plasma urea nitroge n measurement (mass/volume)Ordered By: Dr. Abrams on 03-27-2022 Urea nitrogen [Mass/Vol] 12 mg/dL 7-18 [facility] Thin prep Papanicolaou smear with manual screeningOrdered By: Dr. Abrams on 03-27-2022 Thin prep Papanicolaou smear with manual screening 17 U/L 15-37 [facility] Thin prep Papanicolaou smear with manual screening 6 5-15 [facility] ABDOMEN AP VIEWon 08-13-2021 ABDOMEN AP VIEW Patient Name: TRENTON JACKSON STUDY: ABDOMEN AP VIEW INDICATION: constipation . COMPARISON: Abdomen radiograph dated 09/22/2019. ACCESSION NUMBER(S): [id number] ORDERING CLINICIAN: ALEX TAPIA FINDINGS: Single AP [...] above. Electronically signed by: STEW CUENCA MD [facility] ANKLE, COMPLETE, MIN 3 VIEWS on 08-13-2021 ANKLE, COMPLETE, MIN 3 VIEWS Patient Name: TRENTON JACKSON STUDY: Left ankle, 3 views. INDICATION: sudden onset pain . COMPARISON: None ACCESSION NUMBER(S): [id number] ORDERING CLINICIAN: ALEX TAPIA FINDINGS: Bones demonstrate [...] Electronically signed by: STEW CUENCA MD Normal [facility] BASIC METABOLIC PANELon 08-02 Anion gap [Moles/Vol] 10 mmol/L Normal 10 - 20 [facility] Comment on above: Performed By: #### B MP #### [address] [address] Calcium [Mass/Vol] 8.9 mg/dL Normal 8.6 - 10.3 [facility] Comment on above: Performed By: #### B MP #### [address] [address] Chloride [Moles/Vol] 97 mmol/L Low 98 - 107 [facility] Comment on above: Performed By: #### B MP #### [address] [address] Creatinine [Mass/Vol] 0.61 mg/dL Normal 0.50 - 1.05 [facility] Comment on above: Performed By: #### B MP #### [address] [address] eGFR FEMALE >90 Normal >90 [facility] Comment on above: Result Comment: CALC ULATIONS OF ESTIMATED GFR ARE PERFORMED USING THE 2020 CKD-EPI STUDY REFIT EQUATION WITHOUT THE RACE VARIABLE FOR THE IDMS-TRACEABLE CREATININE METHODS. https://jasn.asnjournals.org/content//ASN.2020 102188 Performed By: #### B MP #### [address] [address] Glucose [Mass/Vol] 395 mg/dL High 74 - 99 [facility] Comment on above: Performed By: #### B MP #### [address] [address] HCO3 (Bld) [Moles/Vol] 28 mmol/L Normal 21 - 32 [facility] Comment on above: Performed By: #### B MP #### [address] [address] Potassium [Moles/Vol] 4.0 mmol/L Normal 3.5 - 5.3 [facility] Comment on above: Performed By: #### B MP #### [address] [address] Sodium [Moles/Vol] 131 mmol/L Low 136 - 145 [facility] Comment on above: Performed By: #### B MP #### [address] [address] Urea nitrogen [Mass/Vol] 10 mg/dL Normal 6 - 23 [facility] Comment on above: Performed By: #### B MP #### [address] [address] BETA-HYDROXYBUTYRATEon 08-13 BETA-HYDROXYBUTYRATE 0.20 mmol/L Normal 0.02 - 0.27 [facility] Comment on above: Result Comment: The beta-hydroxybutyrate test performance characteristics have been validated by [facility] laboratory. This test has not been approved by the FDA; however, such approval is not necessary. Performed By: #### B HB2 #### [address] [address] CBC AND DIFFERENTIALon 08-13 Basophils (Bld) [#/Vol] 0.10 10*3/uL Normal 0.00 - 0.10 [facility] Comment on above: Performed By: #### C BCDF #### [address] [address] Basophils/100 WBC (Bld) 0.8 % Normal 0.0 - 2.0 [facility] Comment on above: Performed By: #### C BCDF #### [address] [address] Eosinophils (Bld) [#/Vol] 0.20 10*3/uL Normal 0.00 - 0.70 [facility] Comment on above: Performed By: #### C BCDF #### [address] [address] Eosinophils/100 WBC (Bld) 2.1 % Normal 0.0 - 6.0 [facility] Comment on above: Performed By: #### C BCDF #### [address] [address] Erythrocyte distribution width (RBC) [Ratio] 13.0 % Normal 11.5 - 14.5 [facility] Comment on above: Performed By: #### C BCDF #### [address] [address] Hematocrit (Bld) [Volume fraction] 43.3 % Normal 36.0 - 46.0 [facility] Comment on above: Performed By: #### C BCDF #### [address] [address] Hemoglobin (Bld) [Mass/Vol] 14.3 g/dL Normal 12.0 - 16.0 [facility] Comment on above: Performed By: #### C BCDF #### [address] [address] Lymphocytes (Bld) [#/Vol] 1.30 10*3/uL Normal 1.20 - 4.80 [facility] Comment on above: Performed By: #### C BCDF #### [address] [address] Lymphocytes/100 WBC (Bld) 12.0 % Normal 13.0 - 44.0 [facility] Comment on above: Performed By: #### C BCDF #### [address] [address] MCHC (RBC) [Mass/Vol] 33.1 g/dL Normal 32.0 - 36.0 [facility] Comment on above: Performed By: #### C BCDF #### [address] [address] MCV (RBC) [Entitic vol] 83 fL Normal 80 - 100 [facility] Comment on above: Performed By: #### C BCDF #### [address] [address] Monocytes (Bld) [#/Vol] 0.60 10*3/uL Normal 0.10 - 1.00 [facility] Comment on above: Performed By: #### C BCDF #### [address] [address] Monocytes/100 WBC (Bld) 5.6 % Normal 2.0 - 10.0 [facility] Comment on above: Performed By: #### C BCDF #### [address] [address] Neutrophils (Bld) [#/Vol] 8.70 10*3/uL High 1.20 - 7.70 [facility] Comment on above: Result Comment: Perc ent differential counts (%) should be interpreted in the context of the absolute cell counts (cells/L). Performed By: #### C BCDF #### [address] [address] Neutrophils/100 WBC (Bld) 79.5 % Normal 40.0 - 80.0 [facility] Comment on above: Performed By: #### C BCDF #### [address] [address] NUCLEATED RBC 0.1 /100 WBC Normal [facility] Comment on above: Performed By: #### C BCDF #### [address] [address] Platelets (Bld) [#/Vol] 276 10*3/uL Normal 150 - 450 [facility] Comment on above: Performed By: #### C BCDF #### [address] [address] RBC 5.22 x10E12/L High 4.00 - 5.20 [facility] Comment on above: Performed By: #### C BCDF #### [address] [address] WBC (Bld) [#/Vol] 10.9 10*3/uL Normal 4.4 - 11.3 [facility] Comment on above: Performed By: #### C BCDF #### [address] [address] LACTATEon 08-13-2021 Lactate [Moles/Vol] 1.2 mmol/L Normal 0.4 - 2.0 [facility] Comment on above: Result Comment: Marisol puncture immediately after or during the administration of Metamizole may lead to falsely low results. Testing should be performed immediately prior to Metamizole dosing. Performed By: #### L ACT #### [address] [address] Provider Note - ED v3on 08-02 Provider Note - ED v3 Provider Note: Chart Review: ED NOTES ED NOTES: HPI: Patient presents ER today complaining of nausea constipation and left ankle and leg pain. She states that the pain has been going on for several weeks. Denies any strain or trauma. 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 Sensation and motor function of extremities grossly intact. Psych: Appropriate mood and affect. I have reviewed and confirmed nurses/medics notes for patient past, social and family history. Portions of this note were dictated by speech recognition. An attempt at proof reading was made to minimize errors. Minor errors in transcriber may be present. HISTORY OF PRESENTING ILLNESS [...] Drug Name: (more content not included)... Normal [facility] Triage - EDon 08-13-2021 Triage - ED [...] obeys commands Best Verbal Response: (V5) oriented [place] Score: 15 Allergies: no Mask applied: yes [...] 13-Aug-2021 10:49 by Dayanara Hoyos (RN) Normal [facility] VENOUS BLOOD GASon 2 BASE EXCESS-BLOOD 7.5 mmol/L High -2.0 - 3.0 [facility] Comment on above: Performed By: #### B LGV1 #### [place] [address] BICARB, CALCULATED 32.7 mmol/L High 22.0 - 26.0 [facility] Comment on above: Performed By: #### B LGV1 #### [place] [address] FIO2 21 % Normal [facility] Comment on above: Performed By: #### B LGV1 #### [place] [address] Oxygen (Bld) [Partial pressure] 20 mm[Hg] Low 35 - 45 [facility] Comment on above: Performed By: #### B LGV1 #### [place] [address] PCO2 47 mmHg Normal 41 - 51 [facility] Comment on above: Performed By: #### B LGV1 #### [place] [address] pH (Bld) 7.45 [pH] High 7.33 - 7.43 [facility] Comment on above: Performed By: #### B LGV1 #### [place] [address] SO2 42 % Low 45 - 75 [facility] Comment on above: Performed By: #### B LGV1 #### [place] [address] CBCon 10-01-2019 Erythrocyte distribution width (RBC) [Ratio] Canceled Normal [facility] Comment on above: Order Comment: TEST CBC WAS CANCELLED, 10/01/2019 02:09 ?Cancel Reason: Patient Discharged. Performed By: #### C OAGS #### [facility] [address] [place] [address] Hematocrit (Bld) [Volume fraction] Canceled Normal [facility] Comment on above: Order Comment: TEST CBC WAS CANCELLED, 10/01/2019 02:09 ?Cancel Reason: Patient Discharged. Performed By: #### C OAGS #### [facility] [address] [place] [address] Hemoglobin (Bld) [Mass/Vol] Canceled Normal [facility] Comment on above: Order Comment: TEST CBC WAS CANCELLED, 10/01/2019 02:09 ?Cancel Reason: Patient Discharged. Performed By: #### C OAGS #### [facility] [address] [place] [address] MCHC (RBC) [Mass/Vol] Canceled Normal [facility] [place] Comment on above: Order Comment: TEST CBC WAS CANCELLED, 10/01/2019 02:09 ?Cancel Reason: Patient Discharged. Performed By: #### C OAGS #### [facility] [address] [place] [address] MCV (RBC) [Entitic vol] Canceled Normal [facility] Comment on above: Order Comment: TEST CBC WAS CANCELLED, 10/01/2019 02:09 ?Cancel Reason: Patient Discharged. Performed By: #### C OAGS #### [facility] [address] [place] [address] Nucleated RBC/100 WBC (Bld) [Ratio] Canceled Normal [facility] [place] Comment on above: Order Comment: TEST CBC WAS CANCELLED, 10/01/2019 02:09 ?Cancel Reason: Patient Discharged. Performed By: #### C OAGS #### [facility] [address] [place] [address] Platelets (Bld) [#/Vol] Canceled Normal [facility] Comment on above: Order Comment: TEST CBC WAS CANCELLED, 10/01/2019 02:09 ?Cancel Reason: Patient Discharged. Performed By: #### C OAGS #### [facility] [address] [place] [address] RBC (Bld) [#/Vol] Canceled Normal [facility] [place] Comment on above: Order Comment: TEST CBC WAS CANCELLED, 10/01/2019 02:09 ?Cancel Reason: Patient Discharged. Performed By: #### C OAGS #### [facility] [address] [place] [address] WBC (Bld) [#/Vol] Canceled Normal [facility] [place] Comment on above: Order Comment: TEST CBC WAS CANCELLED, 10/01/2019 02:09 ?Cancel Reason: Patient Discharged. Performed By: #### C OAGS #### [facility] [address] [place] [address] RENAL FUNCTION PANELon 09-30 Albumin [Mass/Vol] Canceled Normal [facility] [place] Comment on above: Order Comment: TEST RENAL FUNCTION PANEL WAS CANCELLED, 10/01/2019 02:09 ?Cancel Reason:Patient Discharged. Performed By: #### C OAGS #### [facility] [address] [place] [address] Anion gap [Moles/Vol] Canceled Normal [facility] [place] Comment on above: Order Comment: TEST RENAL FUNCTION PANEL WAS CANCELLED, 10/01/2019 02:09 ?Cancel Reason:Patient Discharged. Performed By: #### C OAGS #### [facility] [address] [place] [address] Calcium [Mass/Vol] Canceled Normal [facility] [place] Comment on above: Order Comment: TEST RENAL FUNCTION PANEL WAS CANCELLED, 10/01/2019 02:09 ?Cancel Reason:Patient Discharged. Performed By: #### C OAGS #### [facility] [address] [place] [address] Chloride [Moles/Vol] Canceled Normal [facility] [place] Comment on above: Order Comment: TEST RENAL FUNCTION PANEL WAS CANCELLED, 10/01/2019 02:09 ?Cancel Reason:Patient Discharged. Performed By: #### C OAGS #### [facility] [address] [place] [address] Creatinine [Mass/Vol] Canceled Normal [facility] [place] Comment on above: Order Comment: TEST RENAL FUNCTION PANEL WAS CANCELLED, 10/01/2019 02:09 ?Cancel Reason:Patient Discharged. Performed By: #### C OAGS #### [facility] [address] [place] [address] GFR- AM. Canceled Normal [facility] [place] Comment on above: Order Comment: TEST RENAL FUNCTION PANEL WAS CANCELLED, 10/01/2019 02:09 ?Cancel Reason:Patient Discharged. Result Comment: CALC ULATIONS OF ESTIMATED GFR ARE PERFORMED USING THE MDRD STUDY EQUATION FOR THE IDMS-TRACEABLE CREATININE METHODS. CLIN CHEM 2007;53:766-72 Performed By: #### C OAGS #### [facility] [address] [place] [address] GFR-NON AM. Canceled Normal [facility] [place] Comment on above: Order Comment: TEST RENAL FUNCTION PANEL WAS CANCELLED, 10/01/2019 02:09 ?Cancel Reason:Patient Discharged. Performed By: #### C OAGS #### [facility] [address] [place] [address] Glucose [Mass/Vol] Canceled Normal [facility] [place] Comment on above: Order Comment: TEST RENAL FUNCTION PANEL WAS CANCELLED, 10/01/2019 02:09 ?Cancel Reason:Patient Discharged. Performed By: #### C OAGS #### [facility] [address] [place] [address] HCO3 (Bld) [Moles/Vol] Canceled Normal [facility] [place] Comment on above: Order Comment: TEST RENAL FUNCTION PANEL WAS CANCELLED, 10/01/2019 02:09 ?Cancel Reason:Patient Discharged. Performed By: #### C OAGS #### [facility] [address] [place] [address] Phosphate [Mass/Vol] Canceled Normal [facility] [place] Comment on above: Order Comment: TEST RENAL FUNCTION PANEL WAS CANCELLED, 10/01/2019 02:09 ?Cancel Reason:Patient Discharged. Result Comment: The performance characteristics of phosphorus testing in heparinized plasma have been validated by the individual laboratory site where testing is performed. Testing on heparinized plasma is not approved by the FDA; however, such approval is not necessary. Performed By: #### C OAGS #### [facility] [address] [place] [address] Potassium [Moles/Vol] Canceled Normal [facility] [place] Comment on above: Order Comment: TEST RENAL FUNCTION PANEL WAS CANCELLED, 10/01/2019 02:09 ?Cancel Reason:Patient Discharged. Performed By: #### C OAGS #### [facility] [address] [place] [address] Sodium [Moles/Vol] Canceled Normal [facility] [place] Comment on above: Order Comment: TEST RENAL FUNCTION PANEL WAS CANCELLED, 10/01/2019 02:09 ?Cancel Reason:Patient Discharged. Performed By: #### C OAGS #### [facility] [address] [place] [address] Urea nitrogen [Mass/Vol] Canceled Normal [facility] [place] Comment on above: Order Comment: TEST RENAL FUNCTION PANEL WAS CANCELLED, 10/01/2019 02:09 ?Cancel Reason:Patient Discharged. Performed By: #### C OAGS #### [facility] [address] [place] [address] C-REACTIVE PROTEINon 020 CRP [Mass/Vol] 0.99 mg/dL Normal [facility] [place] Comment on above: Result Comment: REF VALUE < 1.00 Performed By: #### C OAGS #### [facility] [address] [place] [address] CRP [Mass/Vol] 1.13 mg/dL Abnormal [facility] [place] Comment on above: Result Comment: REF VALUE < 1.00 Performed By: #### C RP #### [facility] [address] [place] [address] CBC AND DIFFERENTIALon 09-29 % AUTOMATED IMMATURE GRAN 0.6 % Normal 0.0 - 0.9 [facility] [place] Comment on above: Result Comment: Vaishali ture Granulocyte Count (IG) includes promyelocytes, myelocytes and metamyelocytes but does not include bands. Percent differential counts (%) should be interpreted in the context of the absolute cell counts (cells/L). Performed By: #### C BCDF #### [facility] [address] [place] [address] Basophils (Bld) [#/Vol] 0.06 10*3/uL Normal 0.00 - 0.10 [facility] [place] Comment on above: Performed By: #### C BCDF #### [facility] [address] [place] [address] Basophils/100 WBC (Bld) 0.8 % Normal 0.0 - 2.0 [facility] Comment on above: Performed By: #### C BCDF #### [facility] [address] [place] [address] Eosinophils (Bld) [#/Vol] 0.15 10*3/uL Normal 0.00 - 0.70 [facility] [place] Comment on above: Performed By: #### C BCDF #### [facility] [address] [place] [address] Eosinophils/100 WBC (Bld) 1.9 % Normal 0.0 - 6.0 [facility] [place] Comment on above: Performed By: #### C BCDF #### [facility] [address] [place] [address] Erythrocyte distribution width (RBC) [Ratio] 14.3 % Normal 11.5 - 14.5 [facility] [place] Comment on above: Performed By: #### C BCDF #### [facility] [address] [place] [address] Hematocrit (Bld) [Volume fraction] 39.8 % Normal 36.0 - 46.0 [facility] [place] Comment on above: Performed By: #### C BCDF #### [facility] [address] [place] [address] Hemoglobin (Bld) [Mass/Vol] 12.9 g/dL Normal 12.0 - 16.0 [facility] [place] Comment on above: Performed By: #### C BCDF #### [facility] [address] [place] [address] Lymphocytes (Bld) [#/Vol] 2.21 10*3/uL Normal 1.20 - 4.80 [facility] [place] Comment on above: Performed By: #### C BCDF #### [facility] [address] [place] [address] Lymphocytes/100 WBC (Bld) 28.1 % Normal 13.0 - 44.0 [facility] [place] Comment on above: Performed By: #### C BCDF #### [facility] [address] [place] [address] MCHC (RBC) [Mass/Vol] 32.4 g/dL Normal 32.0 - 36.0 [facility] [place] Comment on above: Performed By: #### C BCDF #### [facility] [address] [place] [address] MCV (RBC) [Entitic vol] 85 fL Normal 80 - 100 [facility] Comment on above: Performed By: #### C BCDF #### [facility] [address] [place] [address] Monocytes (Bld) [#/Vol] 0.79 10*3/uL Normal 0.10 - 1.00 [facility] [place] Comment on above: Performed By: #### C BCDF #### [facility] [address] [place] [address] Monocytes/100 WBC (Bld) 10.0 % Normal 2.0 - 10.0 [facility] Comment on above: Performed By: #### C BCDF #### [facility] [address] [place] [address] Neutrophils (Bld) [#/Vol] 4.61 10*3/uL Normal 1.20 - 7.70 [facility] [place] Comment on above: Performed By: #### C BCDF #### [facility] [address] [place] [address] Neutrophils/100 WBC (Bld) 58.6 % Normal 40.0 - 80.0 [facility] [place] Comment on above: Performed By: #### C BCDF #### [facility] [address] [place] [address] Nucleated RBC/100 WBC (Bld) [Ratio] 0.0 /100 WBC Normal 0.0-0.0 [facility] [place] Comment on above: Performed By: #### C BCDF #### [facility] [address] [place] [address] Platelets (Bld) [#/Vol] 239 10*3/uL Normal 150 - 450 [facility] [place] Comment on above: Performed By: #### C BCDF #### [facility] [address] [place] [address] RBC (Bld) [#/Vol] 4.70 x10E12/L Normal 4.00 - 5.20 [facility] [place] Comment on above: Performed By: #### C BCDF #### [facility] [address] [place] [address] WBC (Bld) [#/Vol] 7.9 10*3/uL Normal 4.4 - 11.3 [facility] [place] Comment on above: Performed By: #### C BCDF #### [facility] [address] [place] [address] % AUTOMATED IMMATURE GRAN 0.5 % Normal 0.0 - 0.9 [facility] [place] Comment on above: Result Comment: Vaishali ture Granulocyte Count (IG) includes promyelocytes, myelocytes and metamyelocytes but does not include bands. Percent differential counts (%) should be interpreted in the context of the absolute cell counts (cells/L). Performed By: #### C BCDF #### [facility] [address] [place] [address] Basophils (Bld) [#/Vol] 0.06 10*3/uL Normal 0.00 - 0.10 [facility] [place] Comment on above: Performed By: #### C BCDF #### [facility] [address] [place] [address] Basophils/100 WBC (Bld) 0.6 % Normal 0.0 - 2.0 [facility] Comment on above: Performed By: #### C BCDF #### [facility] [address] [place] [address] Eosinophils (Bld) [#/Vol] 0.11 10*3/uL Normal 0.00 - 0.70 [facility] [place] Comment on above: Performed By: #### C BCDF #### [facility] [address] [place] [address] Eosinophils/100 WBC (Bld) 1.1 % Normal 0.0 - 6.0 [facility] [place] Comment on above: Performed By: #### C BCDF #### [facility] [address] [place] [address] Erythrocyte distribution width (RBC) [Ratio] 14.3 % Normal 11.5 - 14.5 [facility] [place] Comment on above: Performed By: #### C BCDF #### [facility] [address] [place] [address] Hematocrit (Bld) [Volume fraction] 39.7 % Normal 36.0 - 46.0 [facility] [place] Comment on above: Performed By: #### C BCDF #### [facility] [address] [place] [address] Hemoglobin (Bld) [Mass/Vol] 12.9 g/dL Normal 12.0 - 16.0 [facility] [place] Comment on above: Performed By: #### C BCDF #### [facility] [address] [place] [address] Lymphocytes (Bld) [#/Vol] 3.06 10*3/uL Normal 1.20 - 4.80 [facility] [place] Comment on above: Performed By: #### C BCDF #### [facility] [address] [place] [address] Lymphocytes/100 WBC (Bld) 30.5 % Normal 13.0 - 44.0 [facility] [place] Comment on above: Performed By: #### C BCDF #### [facility] [address] [place] [address] MCHC (RBC) [Mass/Vol] 32.5 g/dL Normal 32.0 - 36.0 [facility] [place] Comment on above: Performed By: #### C BCDF #### [facility] [address] [place] [address] MCV (RBC) [Entitic vol] 84 fL Normal 80 - 100 [facility] Comment on above: Performed By: #### C BCDF #### [facility] [address] [place] [address] Monocytes (Bld) [#/Vol] 0.96 10*3/uL Normal 0.10 - 1.00 [facility] [place] Comment on above: Performed By: #### C BCDF #### [facility] [address] [place] [address] Monocytes/100 WBC (Bld) 9.6 % Normal 2.0 - 10.0 [facility] Comment on above: Performed By: #### C BCDF #### [facility] [address] [place] [address] Neutrophils (Bld) [#/Vol] 5.78 10*3/uL Normal 1.20 - 7.70 [facility] [place] Comment on above: Performed By: #### C BCDF #### [facility] [address] [place] [address] Neutrophils/100 WBC (Bld) 57.7 % Normal 40.0 - 80.0 [facility] [place] Comment on above: Performed By: #### C BCDF #### [facility] [address] [place] [address] Nucleated RBC/100 WBC (Bld) [Ratio] 0.0 /100 WBC Normal 0.0-0.0 [facility] [place] Comment on above: Performed By: #### C BCDF #### [facility] [address] [place] [address] Platelets (Bld) [#/Vol] 250 10*3/uL Normal 150 - 450 [facility] [place] Comment on above: Performed By: #### C BCDF #### [facility] [address] [place] [address] RBC (Bld) [#/Vol] 4.71 x10E12/L Normal 4.00 - 5.20 [facility] [place] Comment on above: Performed By: #### C BCDF #### [facility] [address] [place] [address] WBC (Bld) [#/Vol] 10.0 10*3/uL Normal 4.4 - 11.3 [facility] [place] Comment on above: Performed By: #### C BCDF #### [facility] [address] [place] [address] COAGULATION SCREENon 020 aPTT Coag (Bld) [Time] 33 s Normal 28 - 38 [facility] [place] Comment on above: Result Comment: THE APTT IS NO LONGER USED FOR MONITORING UNFRACTIONATED HEPARIN THERAPY. FOR MONITORING HEPARIN THERAPY, USE THE HEPARIN ASSAY. Performed By: #### C OAGS #### [facility] [address] [place] [address] INR Coag (PPP) [Relative time] 1.2 {INR} High 0.9 - 1.1 [facility] [place] Comment on above: Performed By: #### C OAGS #### [facility] [address] [place] [address] PT Coag (PPP) [Time] 13.5 s High 9.7 - 12.7 [facility] [place] Comment on above: Performed By: #### C OAGS #### [facility] [address] [place] [address] aPTT Coag (Bld) [Time] 41 s High 28 - 38 [facility] [place] Comment on above: Result Comment: THE APTT IS NO LONGER USED FOR MONITORING UNFRACTIONATED HEPARIN THERAPY. FOR MONITORING HEPARIN THERAPY, USE THE HEPARIN ASSAY. Performed By: #### C OAGS #### [facility] [address] [place] [address] INR Coag (PPP) [Relative time] 2.0 {INR} High 0.9 - 1.1 [facility] [place] Comment on above: Performed By: #### C OAGS #### [facility] [address] [place] [address] PT Coag (PPP) [Time] 22.4 s High 9.7 - 12.7 [facility] [place] Comment on above: Performed By: #### C OAGS #### [facility] [address] [place] [address] COMPREHENSIVE PANELon 2019 Albumin [Mass/Vol] 3.6 g/dL Normal 3.4 - 5.0 [facility] [place] Comment on above: Performed By: #### C MP #### [facility] [address] [place] [address] ALP [Catalytic activity/Vol] 82 U/L Normal 33 - 110 [facility] [place] Comment on above: Performed By: #### C MP #### [facility] [address] [place] [address] ALT [Catalytic activity/Vol] 15 U/L Normal 7 - 45 [facility] [place] Comment on above: Result Comment: Cecily ents treated with Sulfasalazine may generate falsely decreased results for ALT. Performed By: #### C MP #### [facility] [address] [place] [address] Anion gap [Moles/Vol] 16 mmol/L Normal 10 - 20 [facility] [place] Comment on above: Performed By: #### C MP #### [facility] [address] [place] [address] AST [Catalytic activity/Vol] 13 U/L Normal 9 - 39 [facility] [place] Comment on above: Performed By: #### C MP #### [facility] [address] [place] [address] Bilirubin [Mass/Vol] 0.7 mg/dL Normal 0.0 - 1.2 [facility] [place] Comment on above: Performed By: #### C MP #### [facility] [address] [place] [address] Calcium [Mass/Vol] 9.2 mg/dL Normal 8.6 - 10.6 [facility] [place] Comment on above: Performed By: #### C MP #### [facility] [address] [place] [address] Chloride [Moles/Vol] 94 mmol/L Low 98 - 107 [facility] [place] Comment on above: Performed By: #### C MP #### [facility] [address] [place] [address] Creatinine [Mass/Vol] 1.52 mg/dL High 0.50 - 1.05 [facility] [place] Comment on above: Performed By: #### C MP #### [facility] [address] [place] [address] GFR- AM. 44 mL/min/1.73m2 Abnormal >60 [facility] [place] Comment on above: Result Comment: CALC ULATIONS OF ESTIMATED GFR ARE PERFORMED USING THE MDRD STUDY EQUATION FOR THE IDMS-TRACEABLE CREATININE METHODS. CLIN CHEM 2007;53:766-72 Performed By: #### C MP #### [facility] [address] [place] [address] GFR-NON AM. 36 mL/min/1.73m2 Abnormal >60 [facility] [place] Comment on above: Performed By: #### C MP #### [facility] [address] [place] [address] Glucose [Mass/Vol] 161 mg/dL High 74 - 99 [facility] [place] Comment on above: Performed By: #### C MP #### [facility] [address] [place] [address] HCO3 (Bld) [Moles/Vol] 30 mmol/L Normal 21 - 32 [facility] [place] Comment on above: Performed By: #### C MP #### [facility] [address] [place] [address] Potassium [Moles/Vol] 3.7 mmol/L Normal 3.5 - 5.3 [facility] [place] Comment on above: Performed By: #### C MP #### [place] [address] [place] [address] Protein [Mass/Vol] 6.3 g/dL Low 6.4 - 8.2 [facility] [place] Comment on above: Performed By: #### C MP #### [facility] [address] [place] [address] Sodium [Moles/Vol] 136 mmol/L Normal 136 - 145 [facility] [place] Comment on above: Performed By: #### C MP #### [facility] [address] [place] [address] Urea nitrogen [Mass/Vol] 25 mg/dL High 6 - 23 [facility] [place] Comment on above: Performed By: #### C MP #### [facility] [address] [place] [address] Daily Progress Note-Cardiolo gyon 09-30-2019 Daily Progress Note-Cardiology Service: Cardiology Subjective [...] above. Objective Data: Objective Information: T PRBPSpO2 [id number]/7995% Date/Time09/29 7: 7: 7: 7: 7:46 Range(35.7C [...] Reference Range: STRAW,YELLOW Appearance, Urine CLEAR Specific Metter, Urine 1.014 pH, Urine 5.0 Protein, Urine [...] seg dep or elevation on EKG, normal NV intervals -Pain control: 975mg q8h as needed, [...] lasix - Hx of heart cath in [facility] - report not available #Provoked PE 2/ immobility - CT chest 09/27: small PE [...] Note Completion: I am a: Resident/Fellow Attending AttestationI saw and evaluated the patient. I personally obtained the jones and critical portions of the history and physical exam or was physically present for jones and critical portions performed by the resident/fellow. I reviewed the resident/fellows documentation and discussed the patient with the resident/fellow. I agree with the resident/fellows medical decision making as documented in the note. I personally evaluated the patient [id number] Electronic Signatures: Quang Chris) (Signed 02-Oct-2019 14:00) Authored: Signature/Cosignature/Att estation Co-Signer: Service, Subjective Data, Objective Data, Assessment and Plan, Signature/Cosignature/Att estation Lilly Barfield (Resident)) (Signed 30-Sep-2019 10:38) Authored: Service, Subjective Data, Objective Data, Assessment and Plan, Signature/Cosignature/Att estation Last Updated: 02-Oct-2019 14:00 by Quang Chris) Normal [facility] Discharge [id number] Discharge Profile2 Discharge Orders: Anticipated Discharge Date: Anticipated Discharge [id number] Anticipated Discharge Time11:33 Problem List: Additional Dx: CHF (congestive heart failure): Catalog Name: Heart failure, unspecified Diabetes mellitus: Catalog Name: Type 2 diabetes mellitus without complications Chest pain: Onset Date: 29-Sep-2019, Catalog Name: Chest pain, unspecified Coronary artery disease: Catalog Name: Atherosclerotic heart disease of jamul coronary artery without angina pectoris Ischemic dilated [...] Medical History Hospital Providers: Provider RoleProvider Name AttendingQuang Chris PrimaryRequired, No Pcp DNAR: DNAR Statusnone Activity: activity as tolerated. Side rails up x 2. May shower. May return to school/work Instructions: May drive. No pushing, pulling, or lifting objects greater than 5 pounds. Diet: Dietlow sodium, diabetic/carbohydrate counted Diabetic/Carbohydrate [id number]/Carb meal, 45gram/Carb snack (1999-s) Fluid RestrictionTry not to drink more than [...] on anti-viral therapy. -Followup routinely with your [employer]. You have a weak heart and they [...] Appointment 01: Physician/Dept/ServiceDr. Abigail Mascorro, Cardiology Scheduled Date/[id number] 11:00 [facility] Cardiology Phone [phone] CommentsPlease do not come into the office. The will contact the patent VIA phone. Follow-Up Appointment 02: Physician/Dept/ServiceDr. Lexis Scanlon - Family Medicine Reason for ReferralEstablish with Primary Care Provider Scheduled Date/[id number] 10:00 LocationPLEASE DO NOT COME INTO THE OFFICE, WILL CONTACT PATIENT VIA PHONE, OFFICE WILL CALL TO CONFIRM APPOINTMENT Phone [phone] CommentsPlease arrive 10-15 minutes early, bring photo ID, current list of medications & dosages, insurance cards and any copay that may apply. If unable to keep this appointment, please call to cancel at least 24 hrs prior to appointment. Electronic Signatures: Kam Hassan (PT ACC REP) (Signed 30-Sep-2019 12:50) Authored: Alyx Martines (PT ACC REP) (Signed 30-Sep-2019 11:25) Authored: Brandon Simpson Form - Coal Bagger Summary Lilly Barfield (Resident)) (Signed 30-Sep-2019 11:54) Authored: Discharge Orders, Hospital Course (Home Care/Gold Form), Provider FINAL REVIEW of Orders, Appointments Last Updated: 30-Sep-2019 12:50 by Kam Hassan (PT ACC REP) Normal [facility] EMR ADDONon 09-30-2019 ADDON CONFIRMATION REQUEST REC'D Normal [facility] Comment on above: Performed By: #### C OAGS #### [facility] [address] [place] [address] GLUCOSE-POCTon 09-30-2019 Glucose [Mass/Vol] 210 mg/dL High 74 - 99 [facility] Comment on above: Performed By: #### C BCDF #### [facility] [address] [place] [address] Glucose [Mass/Vol] 230 mg/dL High 74 - 99 [facility] Comment on above: Performed By: #### G EMILY #### [facility] [address] [place] [address] LACTATEon 09-30-2019 Lactate [Moles/Vol] 2.0 mmol/L Normal 0.4 - 2.0 [facility] Comment on above: Result Comment: Marisol puncture immediately after or during the administration of Metamizole may lead to falsely low results. Testing should be performed immediately prior to Metamizole dosing. Performed By: #### L ACT #### [facility] [address] [place] [address] SEDIMENTATION RATE, ERYTHROC YTEon 09-30-2019 SEDIMENTATION RATE, ERYTHROCYTE 30 mm/h High 0 - 20 [facility] Comment on above: Performed By: #### E SRWS #### [facility] [address] [place] [address] TH ABDOMEN AP VIEWon 020 TH ABDOMEN AP VIEW Patient Name: TRENTON JACKSON STUDY: ABDOMEN AP VIEW; 09/30/2019 12:30 am INDICATION: Constipation. COMPARISON: None. ACCESSION NUMBER(S): [id number] ORDERING CLINICIAN: FRANCISCA FERRER FINDINGS: Surgical clips [...] as stated. This study was interpreted at [facility], [place], [place]. Electronically signed by: BEV BUCHANAN MD Normal [facility] TROPONIN Ion 09-30-2019 Troponin I.cardiac [Mass/Vol] Canceled Normal [facility] Comment on above: Order Comment: TEST TROPONIN I WAS CANCELLED, 09/30/2019 14:12 DUPLICATE ORDER, SEE [id number]. Result Comment: LESS THAN 0.04 NG/ML: NEGATIVE [...] is performed using different testing methodology at [facility] than at other [facility]. Direct result comparisons should only be made within the same method. . Biotin interference may cause falsely decreased results. Patients taking a Biotin dose of up to 5 mg/day should refrain from taking Biotin for 24 hours before sample collection. Providers may contact their laboratory for further information. Performed By: #### T ROP2 #### [facility] [address] [place] [address] Troponin I.cardiac [Mass/Vol] 0.02 ng/mL Normal 0.00 - 0.03 [facility] Comment on above: Result Comment: LESS THAN [...] is performed using different testing methodology at [facility] than at [facility]. Direct result comparisons should only be made within the same method. . Biotin interference may cause falsely decreased results. Patients taking a Biotin dose of up to 5 mg/day should refrain from taking Biotin for 24 hours before sample collection. Providers may contact their laboratory for further information. Performed By: #### C OAGS #### [facility] [address] [place] [address] URINALYSISon 09-30-2019 Appearance (U) CLEAR Normal CLEAR [facility] Comment on above: Performed By: #### U A #### [facility] [address] [place] [address] Bilirubin (U) [Mass/Vol] Negative Normal NEGATIVE [facility] Comment on above: Performed By: #### U A #### [facility] [address] [place] [address] BLOOD Negative Normal NEGATIVE [facility] Comment on above: Performed By: #### U A #### [facility] [address] [place] [address] Color (U) YELLOW Normal STRAW,YELL OW [facility] Comment on above: Performed By: #### U A #### [facility] [address] [place] [address] Glucose [Mass/Vol] Negative Normal NEGATIVE [facility] Comment on above: Performed By: #### U A #### [facility] [address] [place] [address] Ketones Ql (U) Negative Normal NEGATIVE [facility] Comment on above: Performed By: #### U A #### [facility] [address] [place] [address] Leukocyte esterase Test strip Ql (U) Negative Normal NEGATIVE [facility] Comment on above: Performed By: #### U A #### [facility] [address] [place] [address] Nitrite Ql (U) Negative Normal NEGATIVE [facility] Comment on above: Performed By: #### U A #### [facility] [address] [place] [address] pH (Bld) 5.0 Normal 5.0 - 8.0 [facility] Comment on above: Performed By: #### U A #### [facility] [address] [place] [address] Protein (U) [Mass/Vol] Negative Normal NEGATIVE [facility] Comment on above: Performed By: #### U A #### [facility] [address] [place] [address] Specific gravity (U) [Rel density] 1.014 Normal 1.005 - 1.035 [facility] Comment on above: Performed By: #### U A #### [facility] [address] [place] [address] Urobilinogen Qn (U) <2.0 Normal 0.0 - 1.9 [facility] Comment on above: Performed By: #### U A #### [facility] [address] [place] [address] Admission Risk Screen - Adul ton 09-29-2019 [...] falls risk with risk for associated injury Taft Safety InterventionsWDL *orient to call system *instruct [...] instruction; skill demonstration Cultural Considerationsnone Developmental Considerationsnone Holiness Considerationsnone Learning Assessment (Other Learner): Other learner [...] Spiritual Screen: Are there any cultural, spiritual, pentecostalism practices/values/needs that are important for us to knowno CAGE: Is this an injured patient at a Trauma Center ([facility]/[place]/ [place]): no Vaccinations: Vaccination - Influenza Vaccination Screen: [...] 29-Sep-2019 20:36 by Bina Saunders (RN) Normal [facility] Discharge Planning [id number] 09-29-2019 Discharge Planning Note2 Discharge Planning: Anticipated Discharge [id number] Discharge Planning 09/29/192138 Discharge Planning Note: Patient admitted from [facility] with complaints of chest pain. Patient lives at home with - Curry Ellis [employer] [facility]- [phone]. Patient is independent of ADLS and uses a walker and cane at home. Will reassess patient's home going needs prior to discharge. Gian Saunders RN 09/30/2019 @1130 Patient [employer] Note PCN informed per [facility] that pt. would need ride home at discharge. Per medical team pt. can discharge after 12pm. PCN called and spoke with pt. to verify demos. Demos verified. The pt. stated that she is going to call her aunt to see if she can come and pick the pt. up at [facility]. PCN awaiting call back. T[facility] aware. UPDATE @1300: PCN called and spoke with the pt. and at this time she was unable to secure a ride home from her aunt. PCN informed her that [facility] and get [facility] a ride to her residence. UPDATE @1315: PCN able to secure a ride for pt per [employer]-G[employer] for right now to 1415. PCN called and informed Yuko nichols 5 Juancarlos and informed him that he will be receiving a call for pickup. Juancarlos then transferred PCN to bedside nurse Vivien and PCN informed her as well to have pt. ready for pickup. PCN contacted Sheila (resident) to make sure discharge orders are in for pt. to be discharged. T[facility] aware. Ada Jasmine, Patient Owner [employer] [phone] 09/30/2019 1400 Patient discharged home with no home care needs, IV removed, acknowledged discharge instructions. Patient left via transport to provide a ride. Vivien Ramesh RN Assessment: Discharge Planning Assessment [id number] Discharge Planning Assessment Completed byJazzmine Villanueva RNton container filler Coordinator [phone] Primary Contact Name and NumberHusashley- Curry Jackson- [phone](1) Stated Reason for Admissionchest pain(1) Arrived Fromhospital [...] Planning CommentsDenies need to speak to social work therapist. This information was obtained via telephonic communication to maintain safe distancing for COVID-19 precautionary measures Electronic Signatures: Bina Saunders (RN) (Signed 29-Sep-2019 21:44) Authored: Discharge Planning Note2 Jazzmine Villanueva) (Signed 30-Sep-2019 10:34) Authored: Discharge Planning Note2 Vivien Ramesh (RN) (Signed 30-Sep-2019 14:52) Authored: Discharge Planning Note2 Ada Jamsine (PCN) (Signed 30-Sep-2019 13:48) Authored: Discharge Planning Note2 Last Updated: 30-Sep-2019 14:52 by Vivien Ramesh (RN) References: 1. Data Referenced From Patient Profile - Adult v2 29-Sep-2019 20:36 Normal [facility] GLUCOSE-POCTon 09-29-2019 Glucose [Mass/Vol] 189 mg/dL High 74 - 99 [facility] Comment on above: Performed By: #### G EMILY #### [facility] [address] [address] Patient Profile - Adult v2on 09-29-2019 Patient Profile - Adult v2 Profile: Initial Info: How to be AddressedShelley(1) Spoken Language PreferredEnglish (1) Are you currently using the Personal Electronic Health Record or LED OpticsUHCAREno (1) Stated Reason for Admissionchest pain Primary Contact Name and NumberGomezssonia Ellis [facility] [phone] Wants Family/Rep Notified of Admissionno Notify PCPdeferred, unable to answer [facility] Medications Brought to Hospitalyes General Health: Weight in kg89.2 kilogram(s) Weight in jgu368.6 pound(s) Height in feet5 feet Height in [...] Significant Exposuresecondhand smoke(1) Resource/Environmental Concernsnone Anticipated Transition [facility] Anticipated at Transitionnone Significant IndicatorsComplete Information [...] Profile - Adult v2 28-Sep-2019 10:57 Normal [facility] Surgical Pathology Depar tmenton 08-15-2019 [facility] Surgical Pathology Department Name TRENTON JACKSON. [...] M.D. Electronically Signed Out By PETR RAYA MD/Jagdeep By the signature on this report, the [...] bone underlying the necrotic area appears unremarkable. Machine Sizer sections are submitted in 5 cassettes following decalcification. MY Summary of Cassettes: Specimen Label Site A 1 section of the necrotic area 2 bone margin of great toe 3 bone margin of second toe 4 bone margin of third toe 5 section of necrotic area with adjacent bone my/08/20/2019 Normal [facility] Comment on above: Performed By: #### C [facility] #### [facility] [address] [place] [address] [facility] Surgical Pathology Depar tmenton 06-23-2019 [facility] Surgical Pathology Department Name TRENTON JACKSON. Pathologist: ZOHREH COSTA MD Date of Procedure: 06/23/2019 Date Received: 06/23/2019 Date Reported 06/27/2019 Submitting Physician: QUOC VIRK DPM Location: [facility] To/Referring/Attending: HALIE RIVERA MD Other [...] prior to presentation. She decided to use ljfs-hzl-marsdgq aspirin and routine foot care to attend [...] measuring 4 x 3 x 2 cm. Machine Sizer sections are submitted in 4 cassettes. SPS Summary of Cassettes: Specimen Label Site A 1 5th toe bone 2 4th toe bone 3-4 soft tissue Normal [facility] Comment on above: Performed By: #### C BCDF #### [facility] [address] 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 IMPRESSION: No CT evidence of acute process within the abdomen or pelvis. Mild descending and sigmoid colon diverticulosis without definite CT evidence of diverticulitis. Chronic findings as detailed above. Control Tower Operator: PSCB Transcribe Date/Time: Apr 08 2019 3:35P Dictated by : SABINA ODOM MD This examination was interpreted and the report reviewed and electronically signed by: SABINA ODOM MD on Apr 08 2019 3:51PM EST Normal [facility] 2018 Albumin [Mass/Vol] 3.7 g/dL Normal 3.4-5.0 [facility] Comment on above: Performed By: #### L MACU #### [place] [address] ALP [Catalytic activity/Vol] 131 U/L High 46-116 [facility] Comment on above: Performed By: #### L MACU #### [place] [address] ALT-SGPT Blood 21 U/L Normal 14-63 [facility] Comment on above: Performed By: #### L MACU #### [place] [address] Anion gap [Moles/Vol] 15 mmol/L Normal 8-20 [facility] Comment on above: Performed By: #### L MACU #### [place] [address] AST-SGOT Blood 16 U/L Normal 15-37 [facility] Comment on above: Performed By: #### L MACU #### [place] [address] Bilirubin Ql (U) 0.6 mg/dL Normal 0.2-1.0 [facility] Comment on above: Performed By: #### L MACU #### [place] [address] Calcium [Mass/Vol] 9.4 mg/dL Normal 8.5-10.1 [facility] Comment on above: Performed By: #### L MACU #### [place] [address] CO2 Blood 29 mEq/L Normal 21-32 [facility] Comment on above: Performed By: #### L MACU #### [facility] [address] [place], [place] [address] Creatinine [Mass/Vol] 0.65 mg/dL Normal 0.51-0.95 [facility] Comment on above: Performed By: #### L MACU #### [facility] [address] [place], [place] [address] Glucose [Mass/Vol] 370 mg/dL High 70-99 [facility] Comment on above: Performed By: #### L MACU #### [facility] [address] [place], [place] [address] Protein [Mass/Vol] 8.1 g/dL Normal 6.4-8.2 [facility] Comment on above: Performed By: #### L MACU #### [facility] [address] [place], [place] [address] Urea nitrogen [Mass/Vol] 5 mg/dL Low 7-18 [facility] Comment on above: Performed By: #### L MACU #### [facility] [address] [place], [place] [address] Urea nitrogen/Creatinine [Mass ratio] 8 mg/mg Low 10-20 [facility] Comment on above: Performed By: #### L MACU #### [address] [address] Chloride [Moles/Vol] 98 mmol/L Normal 98-109 [facility] Comment on above: Result Comment: Test ing performed on an Palacio i-STAT. Performed By: #### L MACU #### [address] [address] Potassium [Moles/Vol] 4.1 mmol/L Normal 3.5-4.9 [facility] Comment on above: Result Comment: Test ing performed on an Palacio i-STAT. Performed By: #### L MACU #### [address] [address] Sodium [Moles/Vol] 138 mmol/L Normal 138-146 [facility] Comment on above: Result Comment: Test ing performed on an Palacio i-STAT. Performed By: #### L MACU #### [address], [place] [address] Hemogram/Manual Diffon 04-08 Abs. Baso 0.00 thou/cmm Normal 0.00-0.08 [facility] Comment on above: Performed By: #### L MACU #### [facility] [address] [place] [address] Abs. Eosin 0.39 thou/cmm Normal 0.00-0.41 [facility] Comment on above: Performed By: #### L MACU #### [facility] [address] [place] [address] Abs. Lymph 1.82 thou/cmm Normal 1.50-3.65 [facility] Comment on above: Performed By: #### L MACU #### [facility] [address] [place] [address] Abs. [place] 0.65 thou/cmm Normal 0.20-1.00 [facility] Comment on above: Performed By: #### L MACU #### [place] [address] Abs. Neut (ANC) 10.14 thou/cmm High 3.00-5.67 [facility] Comment on above: Performed By: #### L MACU #### [place] [address] Anisocytosis Ql (Bld) Few Normal [facility] Comment on above: Performed By: #### L MACU #### [place] [address] Basophil 0.0 % Normal [facility] Comment on above: Performed By: #### L MACU #### [place] [address] Eosinophil 3.0 % Normal [facility] Comment on above: Performed By: #### L MACU #### [place] [address] Lymphocyte 14.0 % Normal [facility] Comment on above: Performed By: #### L MACU #### [place] [address] Monocyte 5.0 % Normal [facility] Comment on above: Performed By: #### L MACU #### [facility] [address] [place] [address] Platelets (Bld) [#/Vol] Normal Normal [facility] Comment on above: Performed By: #### L MACU #### [facility] [address] [place] [address] Seg Neutrophil 78.0 % Normal [facility] Comment on above: Performed By: #### L MACU #### [facility] [address] [place] [address] Toxic Granulation Few Normal [facility] Comment on above: Performed By: #### L MACU #### [facility] [address] [place] [address] Diff Type Manual Diff Normal [facility] Comment on above: Performed By: #### L MACU #### [place] [address] Erythrocyte distribution width (RBC) [Ratio] 12.8 % Normal 11.5-15.9 [facility] Comment on above: Performed By: #### L MACU #### [place] [address] Hematocrit (Bld) [Volume fraction] 46.9 % Normal 37.0-47.0 [facility] Comment on above: Performed By: #### L MACU #### [place] [address] Hemoglobin (Bld) [Mass/Vol] 15.9 g/dL Normal 12.0-16.0 [facility] Comment on above: Performed By: #### L MACU #### [place] [address] MCH (RBC) [Entitic mass] 27.8 pg Normal 27.0-31.0 [facility] Comment on above: Performed By: #### L MACU #### [place] [address] MCHC (RBC) [Mass/Vol] 33.9 % Normal 32.0-36.0 [facility] Comment on above: Performed By: #### L MACU #### [facility] [address] [place] [address] MCV (RBC) [Entitic vol] 82.0 fl Normal 81.0-99.0 [facility] Comment on above: Performed By: #### L MACU #### [facility] [address] [place] [address] Platelet mean volume (Bld) [Entitic vol] 9.8 fl Normal 7.1-10.5 [facility] Comment on above: Performed By: #### L MACU #### [facility] [address] [place] [address] Platelets (Bld) [#/Vol] 233 thou/cmm Normal 150-400 [facility] Comment on above: Performed By: #### L MACU #### [place] [address] RBC (Bld) [#/Vol] 5.72 mil/cmm High 4.20-5.40 [facility] Comment on above: Performed By: #### L MACU #### [place] [address] WBC (Bld) [#/Vol] 13.0 thou/cmm High 4.8-10.5 [facility] Comment on above: Performed By: #### L MACU #### [place] [address] Lactic acidon 04-08-2019 Lactate [Moles/Vol] 1.8 mmol/L Normal 0.4-2.0 [facility] Comment on above: Performed By: #### L MACU #### [place] [address] Lipase Bloodon 04-08-2019 Lipase Blood 68 U/L Low 73-393 [facility] Comment on above: Performed By: #### L MACU #### [place] [address] MDRD eGFRon 04-08-2019 GFR/1.73 sq M predicted among non-blacks MDRD (S/P/Bld) [Vol rate/Area] mL/min/{1.73_m2} Normal >60mL/min/ 1.73m2 [facility] Comment on above: Result Comment: If t he patient is , multiply the result by 1.210. Performed By: #### L MACU #### [facility] [address] [place] [address] Troponin Ion 04-08-2019 Troponin I.cardiac [Mass/Vol] ng/mL Normal <=0.07 [facility] Comment on above: Performed By: #### L MACU #### [place] [address] Urinalysis Routineon 019 Appearance (U) CLEAR Normal [facility] Comment on above: Performed By: #### L MACU #### [place] [address] Bilirubin Urine Negative Normal Negative [facility] Comment on above: Performed By: #### L MACU #### [place] [address] Color (U) YELLOW Normal [facility] Comment on above: Performed By: #### L MACU #### [place] [address] Ep Cells Urine 0-2 Normal 0-5 [facility] Comment on above: Performed By: #### L MACU #### [place] [address] Glucose Ql (U) 2+ Abnormal Negative [facility] Comment on above: Performed By: #### L MACU #### [place] [address] Hemoglobin,Urine TRACE-INTACT Abnormal Negative [facility] Comment on above: Performed By: #### L MACU #### [place] [address] Ketone Urine Negative Normal Negative [facility] Comment on above: Performed By: #### L MACU #### [place] [address] Leukocytes Esterase Negative Normal Negative [facility] Comment on above: Performed By: #### L MACU #### [facility] [address] [place] [address] Nitrites Urine Negative Normal Negative [facility] Comment on above: Performed By: #### L MACU #### [facility] [address] [place] [address] pH (U) 5.5 [pH] Normal 5.0-8.0 [facility] Comment on above: Performed By: #### L MACU #### [place] [address] Protein (U) [Mass/Vol] Negative Normal Negative [facility] Comment on above: Performed By: #### L MACU #### [place] [address] RBC LM.HPF (Urine sed) [#/Area] 0-3 Normal 0-3 [facility] Comment on above: Performed By: #### L MACU #### [place] [address] Specific Metter, Ur 1.010 Normal 1.005-1 .03 0 [facility] Comment on above: Performed By: #### L MACU #### [place] [address] Urobilinogen,Ur 0.2 EU/dL Normal 0.2-1.0 [facility] Comment on above: Performed By: #### L MACU #### [place] [address] WBC LM.HPF (Urine sed) [#/Area] 0-2 Normal 0-5 [facility] Comment on above: Performed By: #### L MACU #### [place] [address] Urine HCG, Qual.on 9 Beta HCG ( test) Ql (U) Negative Normal Negative [facility] Comment on above: Performed By: #### L MACU #### [place] [address] CT ABD/PEL W IVCONon 019 CT ABD/PEL W IVCON * * *Final Report* * * DATE OF EXAM: Mar 17 2019 12:16PM [facility] 0530 - CT ABD/PEL W IVCON [...] acute inflammation. Other chronic findings, as above. Control Tower Operator: PSCZulay Transcribe Date/Time: Mar 17 2019 12:22P Dictated by : EDEN CALHOUN MD This examination was interpreted and the report reviewed and electronically signed by: EDEN CALHOUN MD on Mar 17 2019 12:41PM EST Normal [facility] 2018 Anion gap [Moles/Vol] 13 mmol/L Normal 8-20 [facility] Comment on above: Performed By: #### L MACU #### [address] [address] Chloride [Moles/Vol] 99 mmol/L Normal 98-109 [facility] Comment on above: Result Comment: Test ing performed on an Palacio i-STAT. Performed By: #### L MACU #### [address] [address] Potassium [Moles/Vol] 4.5 mmol/L Normal 3.5-4.9 [facility] Comment on above: Result Comment: Test ing performed on an Palacio i-STAT. Performed By: #### L MACU #### [address] [address] Sodium [Moles/Vol] 135 mmol/L Low 138-146 [facility] Comment on above: Result Comment: Test ing performed on an Palacio i-STAT. Performed By: #### L MACU #### [address] [address] Albumin [Mass/Vol] 3.5 g/dL Normal 3.4-5.0 [facility] Comment on above: Performed By: #### L MACU #### [facility] [address] [place] [address] ALP [Catalytic activity/Vol] 109 U/L Normal 46-116 [facility] Comment on above: Performed By: #### L MACU #### [facility] [address] [place] [address] ALT-SGPT Blood 22 U/L Normal 14-63 [facility] Comment on above: Performed By: #### L MACU #### [facility] [address] [place] [address] AST-SGOT Blood 21 U/L Normal 15-37 [facility] Comment on above: Performed By: #### L MACU #### [facility] [address] [place] [address] Bilirubin Ql (U) 0.7 mg/dL Normal 0.2-1.0 [facility] Comment on above: Performed By: #### L MACU #### [facility] [address] [place] [address] Calcium [Mass/Vol] 9.0 mg/dL Normal 8.5-10.1 [facility] Comment on above: Performed By: #### L MACU #### [facility] [address] [place] [address] CO2 Blood 28 mEq/L Normal 21-32 [facility] Comment on above: Performed By: #### L MACU #### [facility] [address] [place] [address] Creatinine [Mass/Vol] 0.63 mg/dL Normal 0.51-0.95 [facility] Comment on above: Performed By: #### L MACU #### [facility] [address] [place] [address] Glucose [Mass/Vol] 312 mg/dL High 70-99 [facility] Comment on above: Performed By: #### L MACU #### [facility] [address] [place] [address] Protein [Mass/Vol] 7.5 g/dL Normal 6.4-8.2 [facility] Comment on above: Performed By: #### L MACU #### [facility] [address] [place] [address] Urea nitrogen [Mass/Vol] 5 mg/dL Low 7-18 [facility] Comment on above: Performed By: #### L MACU #### [facility] [address] [place] [address] Urea nitrogen/Creatinine [Mass ratio] 8 mg/mg Low 10-20 [facility] Comment on above: Performed By: #### L MACU #### [facility] [address] [place] [address] Hemogram/Diffon 03-17-2019 Abs. Baso 0.11 thou/cmm High 0.00-0.08 [facility] Comment on above: Performed By: #### L MACU #### [facility] [address] [place] [address] Abs. [place] 0.49 thou/cmm Normal 0.20-1.00 [facility] Comment on above: Performed By: #### L MACU #### [facility] [address] [place] [address] Abs. Neut (ANC) 7.08 thou/cmm High 3.00-5.67 [facility] Comment on above: Performed By: #### L MACU #### [facility] [address] [place] [address] Basophils/100 WBC (Bld) 1.1 % Normal A [facility] Comment on above: Performed By: #### L MACU #### [place] [address] Eosinophils (Bld) [#/Vol] 0.27 thou/cmm Normal 0.00-0.41 [facility] Comment on above: Performed By: #### L MACU #### [place] [address] Eosinophils/100 WBC (Bld) 2.7 % Normal [facility] Comment on above: Performed By: #### L MACU #### [place] [address] Erythrocyte distribution width (RBC) [Ratio] 12.9 % Normal 11.5-15.9 [facility] Comment on above: Performed By: #### L MACU #### [facility] [address] [place], [place] [address] Hematocrit (Bld) [Volume fraction] 47.5 % High 37.0-47.0 [facility] Comment on above: Performed By: #### L MACU #### [facility] [address] [place], [place] [address] Hemoglobin (Bld) [Mass/Vol] 15.8 g/dL Normal 12.0-16.0 [facility] Comment on above: Performed By: #### L MACU #### [facility] [address] [place], [place] [address] Lymphocytes (Bld) [#/Vol] 2.05 thou/cmm Normal 1.50-3.65 [facility] Comment on above: Performed By: #### L MACU #### [address] [address] Lymphocytes/100 WBC (Bld) 20.5 % Normal [facility] Comment on above: Performed By: #### L MACU #### [facility] 1 [place], [place] [address] MCH (RBC) [Entitic mass] 27.7 pg Normal 27.0-31.0 [facility] Comment on above: Performed By: #### L MACU #### [address] [address] MCHC (RBC) [Mass/Vol] 33.3 % Normal 32.0-36.0 [facility] Comment on above: Performed By: #### L MACU #### [facility] [address] [place], [place] [address] MCV (RBC) [Entitic vol] 83.3 fL Normal 81.0-99.0 [facility] Comment on above: Performed By: #### L MACU #### [address] [address] Monocytes/100 WBC (Bld) 4.9 % Normal [facility] Comment on above: Performed By: #### L MACU #### [facility] [address] [place] [address] Platelet mean volume (Bld) [Entitic vol] 9.9 fL Normal 7.1-10.5 [facility] Comment on above: Performed By: #### L MACU #### [facility] [address] [place], [place] [address] Platelets (Bld) [#/Vol] 240 thou/cmm Normal 150-400 [facility] Comment on above: Performed By: #### L MACU #### [facility] [address] [place] [address] RBC (Bld) [#/Vol] 5.70 mil/cmm High 4.20-5.40 [facility] Comment on above: Performed By: #### L MACU #### [place] [address] Seg Neutrophil 70.8 % Normal [facility] Comment on above: Performed By: #### L MACU #### [facility] [address] [place] [address] WBC (Bld) [#/Vol] 10.0 thou/cmm Normal 4.8-10.5 [facility] Comment on above: Performed By: #### L MACU #### [place] [address] Lipase Bloodon 03-17-2019 Lipase Blood 107 U/L Normal 73-393 [facility] Comment on above: Performed By: #### L MACU #### [facility] [address] [place] [address] MDRD eGFRon 03-17-2019 GFR/1.73 sq M predicted among non-blacks MDRD (S/P/Bld) [Vol rate/Area] mL/min/{1.73_m2} Normal >60mL/min/ 1.73m2 [facility] Comment on above: Result Comment: If t he patient is , multiply the result by 1.210. Performed By: #### L MACU #### [place] [address] Macroscopic Urinalysison Appearance (U) CLEAR Normal [facility] Comment on above: Performed By: #### L MACU #### [facility] [address] [place] [address] Bilirubin Urine Negative Normal Negative [facility] Comment on above: Performed By: #### L MACU #### [facility] [address] [place] [address] Color (U) YELLOW Normal [facility] Comment on above: Performed By: #### L MACU #### [facility] [address] [place] [address] Glucose Ql (U) 2+ Abnormal Negative [facility] Comment on above: Performed By: #### L MACU #### [place] [address] Hemoglobin,Urine Negative Normal Negative [facility] Comment on above: Performed By: #### L MACU #### [place] [address] Ketone Urine Negative Normal Negative [facility] Comment on above: Performed By: #### L MACU #### [place] [address] Leukocytes Esterase Negative Normal Negative [facility] Comment on above: Performed By: #### L MACU #### [place] [address] Nitrites Urine Negative Normal Negative [facility] Comment on above: Performed By: #### L MACU #### [place] [address] pH (U) 6.0 [pH] Normal 5.0-8.0 [facility] Comment on above: Performed By: #### L MACU #### [place] [address] Protein (U) [Mass/Vol] Negative Normal Negative [facility] Comment on above: Performed By: #### L MACU #### [place] [address] Specific Metter, Ur 1.020 Normal 1.005-1 .03 0 [facility] Comment on above: Performed By: #### L MACU #### [facility] [address] [place] [address] Urobilinogen,Ur 0.2 EU/dL Normal 0.2-1.0 [facility] Comment on above: Performed By: #### L MACU #### [facility] [address] [place] [address] Troponin Ion 03-17-2019 Troponin I.cardiac [Mass/Vol] ng/mL Normal <=0.07 [facility] Comment on above: Performed By: #### L MACU #### [place] [address] Comprehensive Panelon 2018 Creatinine [Mass/Vol] 0.57 mg/dL Normal 0.51-0.95 [facility] Comment on above: Performed By: #### L MACU #### [place] [address] ALP [Catalytic activity/Vol] 118 U/L High 45-117 [facility] Comment on above: Performed By: #### L MACU #### [place] [address] Bilirubin [Mass/Vol] 0.6 mg/dL Normal 0.2-1.0 [facility] Comment on above: Performed By: #### L MACU #### [place] [address] Protein [Mass/Vol] 7.6 g/dL Normal 6.4-8.2 [facility] Comment on above: Performed By: #### L MACU #### [place] [address] ALT [Catalytic activity/Vol] 21 U/L Normal 12-78 [facility] Comment on above: Performed By: #### L MACU #### [facility] [address] [place] [address] AST [Catalytic activity/Vol] 17 U/L Normal 15-37 [facility] Comment on above: Performed By: #### L MACU #### [place] [address] Urea nitrogen [Mass/Vol] 8 mg/dL Normal 7-18 [facility] Comment on above: Performed By: #### L MACU #### [facility] [address] [place], [place] [address] Glucose [Mass/Vol] 354 mg/dL High 70-99 [facility] Comment on above: Performed By: #### L MACU #### [facility] [address] [place], [place] [address] Albumin [Mass/Vol] 3.5 g/dL Normal 3.4-5.0 [facility] Comment on above: Performed By: #### L MACU #### [facility] [address] [place], [place] [address] Anion gap [Moles/Vol] 8 mmol/L Normal 8-16 [facility] Comment on above: Performed By: #### L MACU #### [address] [address] Calcium [Mass/Vol] 9.1 mg/dL Normal 8.5-10.1 [facility] Comment on above: Performed By: #### L MACU #### [facility] [address] [place], [place] [address] CO2 [Moles/Vol] 29 mmol/L Normal 21-32 [facility] Comment on above: Performed By: #### L MACU #### [facility] [address] [place], [place] [address] Chloride [Moles/Vol] 102 mmol/L Normal 98-107 [facility] Comment on above: Performed By: #### L MACU #### [facility] [address] [place], [place] [address] Potassium [Moles/Vol] 4.8 mmol/L Normal 3.5-5.1 [facility] Comment on above: Performed By: #### L MACU #### [facility] [address] [place], [place] [address] Sodium [Moles/Vol] 134 mmol/L Low 136-145 [facility] Comment on above: Performed By: #### L MACU #### [facility] [address] [place] [address] Hemogramon 03-14-2019 Erythrocyte distribution width (RBC) [Ratio] 12.8 % Normal 11.5-15.9 [facility] Comment on above: Performed By: #### L MACU #### [facility] [address] [place] [address] Hematocrit (Bld) [Volume fraction] 46.8 % Normal 37.0-47.0 [facility] Comment on above: Performed By: #### L MACU #### [place] [address] Hemoglobin (Bld) [Mass/Vol] 15.7 g/dL Normal 12.0-16.0 [facility] Comment on above: Performed By: #### L MACU #### [place] [address] MCH (RBC) [Entitic mass] 27.8 pg Normal 27.0-31.0 [facility] Comment on above: Performed By: #### L MACU #### [place] [address] MCHC (RBC) [Mass/Vol] 33.5 % Normal 32.0-36.0 [facility] Comment on above: Performed By: #### L MACU #### [place] [address] MCV (RBC) [Entitic vol] 83.0 fL Normal 81.0-99.0 [facility] Comment on above: Performed By: #### L MACU #### [place] [address] Platelet mean volume (Bld) [Entitic vol] 9.9 fL Normal 7.1-10.5 [facility] Comment on above: Performed By: #### L MACU #### [place] [address] Platelets (Bld) [#/Vol] 256 thou/cmm Normal 150-400 [facility] Comment on above: Performed By: #### L MACU #### [place] [address] RBC (Bld) [#/Vol] 5.64 mil/cmm High 4.20-5.40 [facility] Comment on above: Performed By: #### L MACU #### [place] [address] WBC (Bld) [#/Vol] 10.6 thou/cmm High 4.8-10.5 [facility] Comment on above: Performed By: #### L MACU #### [place] [address] Lipase Bloodon 03-14-2019 Lipase Blood 104 U/L Normal 73-393 [facility] Comment on above: Performed By: #### L MACU #### [place] [address] MDRD GFRon 03-14-2019 GFR/1.73 sq M predicted among non-blacks MDRD (S/P/Bld) [Vol rate/Area] mL/min/{1.73_m2} Normal >60mL/min/ 1.73m2 [facility] Comment on above: Result Comment: If t he patient is , multiply the result by 1.210. Performed By: #### L MACU #### [place] [address] Macroscopic Urinalysison Appearance (U) CLEAR Normal [facility] Comment on above: Performed By: #### L MACU #### [place] [address] Bilirubin Urine Negative Normal Negative [facility] Comment on above: Performed By: #### L MACU #### [place] [address] Color (U) YELLOW Normal [facility] Comment on above: Performed By: #### L MACU #### [place] [address] Glucose Ql (U) 2+ Abnormal Negative [facility] Comment on above: Performed By: #### L MACU #### [place] [address] Hemoglobin,Urine Negative Normal Negative [facility] Comment on above: Performed By: #### L MACU #### [facility] [address] [place] [address] Ketone Urine Negative Normal Negative [facility] Comment on above: Performed By: #### L MACU #### [place] [address] Leukocytes Esterase Negative Normal Negative [facility] Comment on above: Performed By: #### L MACU #### [facility] [address] [place] [address] Nitrites Urine Negative Normal Negative [facility] Comment on above: Performed By: #### L MACU #### [place] [address] pH (U) 5.5 [pH] Normal 5.0-8.0 [facility] Comment on above: Performed By: #### L MACU #### [place] [address] Protein (U) [Mass/Vol] Negative Normal Negative [facility] Comment on above: Performed By: #### L MACU #### [place] [address] Specific Metter, Ur 1.015 Normal 1.005-1 .03 0 [facility] Comment on above: Performed By: #### L MACU #### [place] [address] Urobilinogen,Ur 0.2 EU/dL Normal 0.2-1.0 [facility] Comment on above: Performed By: #### L MACU #### [place] [address] Urine HCG, Qual.on 9 Beta HCG ( test) Ql (U) Negative Normal Negative [facility] Comment on above: Performed By: #### L MACU #### [place] [address] Comprehensive Panelon 2018 Albumin [Mass/Vol] 3.4 g/dL Normal 3.4-5.0 [facility] Comment on above: Performed By: #### L MACU #### [facility] [address] [place], [place] [address] ALP [Catalytic activity/Vol] 109 U/L Normal 46-116 [facility] Comment on above: Performed By: #### L MACU #### [facility] [address] [place] [address] ALT-SGPT Blood 20 U/L Normal 14-63 [facility] Comment on above: Performed By: #### L MACU #### [facility] [address] [place] [address] Anion gap [Moles/Vol] 15 mmol/L Normal 8-20 [facility] Comment on above: Performed By: #### L MACU #### [facility] [address] [place] [address] AST-SGOT Blood 19 U/L Normal 15-37 [facility] Comment on above: Performed By: #### L MACU #### [facility] [address] [place] [address] Bilirubin Ql (U) 0.8 mg/dL Normal 0.2-1.0 [facility] Comment on above: Performed By: #### L MACU #### [facility] [address] [place] [address] Calcium [Mass/Vol] 9.0 mg/dL Normal 8.5-10.1 [facility] Comment on above: Performed By: #### L MACU #### [facility] [address] [place] [address] CO2 Blood 27 mEq/L Normal 21-32 [facility] Comment on above: Performed By: #### L MACU #### [facility] [address] [place] [address] Creatinine [Mass/Vol] 0.62 mg/dL Normal 0.51-0.95 [facility] Comment on above: Performed By: #### L MACU #### [place] [address] Glucose [Mass/Vol] 343 mg/dL High 70-99 [facility] Comment on above: Performed By: #### L MACU #### [facility] [address] [place], [place] [address] Protein [Mass/Vol] 7.5 g/dL Normal 6.4-8.2 [facility] Comment on above: Performed By: #### L MACU #### [facility] [address] [place], [place] [address] Urea nitrogen [Mass/Vol] 3 mg/dL Low 7-25 [facility] Comment on above: Performed By: #### L MACU #### [facility] [address] [place], [place] [address] Urea nitrogen/Creatinine [Mass ratio] 5 mg/mg Low 10-20 [facility] Comment on above: Performed By: #### L MACU #### [facility] [address] [place], [place] [address] Chloride [Moles/Vol] 100 mmol/L Normal 98-109 [facility] Comment on above: Result Comment: Test ing performed on an Palacio i-STAT. Performed By: #### L MACU #### [facility] [address] [place], [place] [address] Potassium [Moles/Vol] 3.7 mmol/L Normal 3.5-4.9 [facility] Comment on above: Result Comment: Test ing performed on an Palacio i-STAT. Performed By: #### L MACU #### [address] [address] Sodium [Moles/Vol] 138 mmol/L Normal 138-146 [facility] Comment on above: Result Comment: Test ing performed on an Palacio i-STAT. Performed By: #### L MACU #### [facility] [address] [place], [place] [address] D-Dimer Quantitativeon 10-27 D-Dimer Quantitative 310 ng/mL(FEU) Normal <450 [facility] Comment on above: Result Comment: 500 ng/mL [...] >=35.8%. Performed By: #### L MACU #### [place] [address] Hemogramon 10-27-2018 Erythrocyte distribution width (RBC) [Ratio] 12.5 % Normal 11.5-15.9 [facility] Comment on above: Performed By: #### L MACU #### [place] [address] Hematocrit (Bld) [Volume fraction] 46.1 % Normal 37.0-47.0 [facility] Comment on above: Performed By: #### L MACU #### [place] [address] Hemoglobin (Bld) [Mass/Vol] 15.8 g/dL Normal 12.0-16.0 [facility] Comment on above: Performed By: #### L MACU #### [place] [address] MCH (RBC) [Entitic mass] 27.8 pg Normal 27.0-31.0 [facility] Comment on above: Performed By: #### L MACU #### [place] [address] MCHC (RBC) [Mass/Vol] 34.3 % Normal 32.0-36.0 [facility] Comment on above: Performed By: #### L MACU #### [place] [address] MCV (RBC) [Entitic vol] 81.0 fL Normal 81.0-99.0 [facility] Comment on above: Performed By: #### L MACU #### [place] [address] Platelet mean volume (Bld) [Entitic vol] 10.0 fL Normal 7.1-10.5 [facility] Comment on above: Performed By: #### L MACU #### [facility] [address] [place], [place] [address] Platelets (Bld) [#/Vol] 223 thou/cmm Normal 150-400 [facility] Comment on above: Performed By: #### L MACU #### [facility] [address] [place], [place] [address] RBC (Bld) [#/Vol] 5.69 mil/cmm High 4.20-5.40 [facility] Comment on above: Performed By: #### L RADHAU #### [address] [address] WBC (Bld) [#/Vol] 10.0 thou/cmm Normal 4.8-10.5 [facility] Comment on above: Performed By: #### L MACU #### [address] [address] MDRD eGFRon 10-27-2018 GFR/1.73 sq M predicted among non-blacks MDRD (S/P/Bld) [Vol rate/Area] mL/min/{1.73_m2} Normal >60mL/min/ 1.73m2 [facility] Comment on above: Result Comment: If t he patient is , multiply the result by 1.210. Performed By: #### L MACU #### [address] [address] N-terminal Pro-BNPon 019 Natriuretic peptide B (Bld) [Mass/Vol] 1340.0 pg/mL Normal [facility] Comment on above: Result Comment: Note new reference range: Normal Reference Range: Patients <75 yrs old <125pg/ml Patients >=75 yrs old <450 pg/ml Performed By: #### L MACU #### [facility] [address] [place], [place] [address] Troponin Ion 10-27-2018 Troponin I.cardiac [Mass/Vol] ng/mL Normal <=0.07 [facility] Comment on above: Performed By: #### L MACU #### [facility] [address] [place], [place] [address] Troponin I.cardiac [Mass/Vol] ng/mL Normal <=0.07 [facility] Comment on above: Performed By: #### L MACU #### [facility] [address] [place], [place] [address] Troponin Ion 10-21-2018 Troponin I.cardiac [Mass/Vol] ng/mL Normal <=0.07 [facility] Comment on above: Performed By: #### L CBCD #### [place] [address] Basic Panelon 10-20-2018 Anion gap [Moles/Vol] 17 mmol/L Normal 8-20 [facility] Comment on above: Performed By: #### L CBCD #### [place] [address] Calcium [Mass/Vol] 9.7 mg/dL Normal 8.5-10.1 [facility] Comment on above: Performed By: #### L CBCD #### [place] [address] CO2 Blood 26 mEq/L Normal 21-32 [facility] Comment on above: Performed By: #### L CBCD #### [place] [address] Creatinine [Mass/Vol] 0.77 mg/dL Normal 0.51-0.95 [facility] Comment on above: Performed By: #### L CBCD #### [place] [address] Glucose [Mass/Vol] 328 mg/dL High 70-99 [facility] Comment on above: Performed By: #### L CBCD #### [place] [address] Urea nitrogen [Mass/Vol] 6 mg/dL Low 7-25 [facility] Comment on above: Performed By: #### L CBCD #### [place] [address] Urea nitrogen/Creatinine [Mass ratio] 8 mg/mg Low 10-20 [facility] Comment on above: Performed By: #### L CBCD #### [facility] [address] [place], [place] [address] Chloride [Moles/Vol] 100 mmol/L Normal 98-109 [facility] Comment on above: Result Comment: Test ing performed on an Palacio i-STAT. Performed By: #### L CBCD #### [facility] [address] [place], [place] [address] Potassium [Moles/Vol] 3.9 mmol/L Normal 3.5-4.9 [facility] Comment on above: Result Comment: Test ing performed on an Palacio i-STAT. Performed By: #### L CBCD #### [address] [address] Sodium [Moles/Vol] 139 mmol/L Normal 138-146 [facility] Comment on above: Result Comment: Test ing performed on an Palacio i-STAT. Performed By: #### L CBCD #### [address] [address] D-Dimer Quantitativeon 10-20 D-Dimer Quantitative 310 ng/mL(FEU) Normal <450 [facility] Comment on above: Result Comment: 500 ng/mL [...] >=35.8%. Performed By: #### L CBCD #### [address] [address] Glucose Meteron 10-20-2018 Glucose [Mass/Vol] 284 mg/dL High 70-99 [facility] Comment on above: Result Comment: MD Flores OTIFIED [place] [address] Performed By: #### L CBCD #### [facility] [address] [place] [address] Hemogram/Manual Diffon 10-20 Abs. Baso 0.00 thou/cmm Normal 0.00-0.08 [facility] Comment on above: Performed By: #### L CBCD #### [facility] [address] [place] [address] Abs. Eosin 0.00 thou/cmm Normal 0.00-0.41 [facility] Comment on above: Performed By: #### L CBCD #### [place] [address] Abs. Lymph 3.17 thou/cmm Normal 1.50-3.65 [facility] Comment on above: Performed By: #### L CBCD #### [facility] [address] [place] [address] Abs. [place] 0.98 thou/cmm Normal 0.20-1.00 [facility] Comment on above: Performed By: #### L CBCD #### [place] [address] Abs. Neut (ANC) 8.05 thou/cmm High 3.00-5.67 [facility] Comment on above: Performed By: #### L CBCD #### [facility] [address] [place] [address] Atypical Lymph 4.0 % Normal [facility] Comment on above: Performed By: #### L CBCD #### [facility] [address] [place] [address] Basophil 0.0 % Normal [facility] Comment on above: Performed By: #### L CBCD #### [place] [address] Eosinophil 0.0 % Normal [facility] Comment on above: Performed By: #### L CBCD #### [address] [place], [place] [address] Lymphocyte 22.0 % Normal [facility] Comment on above: Performed By: #### L CBCD #### [facility] [address] [place] [address] Monocyte 8.0 % Normal [facility] Comment on above: Performed By: #### L CBCD #### [facility] [address] [place] [address] Platelets (Bld) [#/Vol] Normal Normal A [facility] Comment on above: Performed By: #### L CBCD #### [facility] [address] [place] [address] RBC morphology finding Nom (Bld) Normal Normal [facility] Comment on above: Performed By: #### L CBCD #### [facility] [address] [place] [address] Seg Neutrophil 66.0 % Normal [facility] Comment on above: Performed By: #### L CBCD #### [facility] [address] [place] [address] Diff Type Manual Diff Normal [facility] Comment on above: Performed By: #### L CBCD #### [facility] [address] [place] [address] Erythrocyte distribution width (RBC) [Ratio] 12.9 % Normal 11.5-15.9 [facility] Comment on above: Performed By: #### L CBCD #### [facility] [address] [place] [address] Hematocrit (Bld) [Volume fraction] 47.6 % High 37.0-47.0 [facility] Comment on above: Performed By: #### L CBCD #### [facility] [address] [place] [address] Hemoglobin (Bld) [Mass/Vol] 16.1 g/dL High 12.0-16.0 [facility] Comment on above: Performed By: #### L CBCD #### [place] [address] MCH (RBC) [Entitic mass] 27.8 pg Normal 27.0-31.0 [facility] Comment on above: Performed By: #### L CBCD #### [facility] [address] [place], [place] [address] MCHC (RBC) [Mass/Vol] 33.8 % Normal 32.0-36.0 [facility] Comment on above: Performed By: #### L CBCD #### [facility] [address] [place], [place] [address] MCV (RBC) [Entitic vol] 82.2 fl Normal 81.0-99.0 [facility] Comment on above: Performed By: #### L CBCD #### [facility] [address] [place], [place] [address] Platelet mean volume (Bld) [Entitic vol] 9.9 fl Normal 7.1-10.5 [facility] Comment on above: Performed By: #### L CBCD #### [facility] [address] [place] [id number] Platelets (Bld) [#/Vol] 250 thou/cmm Normal 150-400 [facility] Comment on above: Performed By: #### L CBCD #### [facility] [address] [place], [place] [address] RBC (Bld) [#/Vol] 5.79 mil/cmm High 4.20-5.40 [facility] Comment on above: Performed By: #### L CBCD #### [facility] [address] [place], [place] [address] WBC (Bld) [#/Vol] 12.2 thou/cmm High 4.8-10.5 [facility] Comment on above: Performed By: #### L CBCD #### [facility] [address] [place], [place] [address] MDRD eGFRon 10-20-2018 GFR/1.73 sq M predicted among non-blacks MDRD (S/P/Bld) [Vol rate/Area] mL/min/{1.73_m2} Normal >60mL/min/ 1.73m2 [facility] Comment on above: Result Comment: If t he patient is , multiply the result by 1.210. Performed By: #### L CBCD #### [facility] [address] [place] [address] N-terminal Pro-BNPon 019 Natriuretic peptide B (Bld) [Mass/Vol] 751.0 pg/mL Normal [facility] Comment on above: Result Comment: Note new reference range: Normal Reference Range: Patients <75 yrs old <125pg/ml Patients >=75 yrs old <450 pg/ml Performed By: #### L CBCD #### [facility] [address] [place] [address] Troponin Ion 10-20-2018 Troponin I.cardiac [Mass/Vol] ng/mL Normal <=0.07 [facility] Comment on above: Performed By: #### L CBCD #### [place] [address] Comprehensive Panelon 2018 Albumin [Mass/Vol] 3.1 g/dL Low 3.4-5.0 [facility] Comment on above: Performed By: #### L P14 ####[place] [address] ALP [Catalytic activity/Vol] 93 U/L Normal 46-116 [facility] Comment on above: Performed By: #### L P14 ####[place] [address] ALT-SGPT Blood 22 U/L Normal 14-63 [facility] Comment on above: Performed By: #### L P14 ####[place] [address] Anion gap [Moles/Vol] 13 mmol/L Normal 8-20 [facility] Comment on above: Performed By: #### L P14 ####[place] [address] AST-SGOT Blood 20 U/L Normal 15-37 [facility] Comment on above: Performed By: #### L P14 ####[address] [address] Bilirubin Ql (U) 0.8 mg/dL Normal 0.2-1.0 [facility] Comment on above: Performed By: #### L P14 ####[facility] [place], [place] [address] Calcium [Mass/Vol] 9.2 mg/dL Normal 8.5-10.1 [facility] Comment on above: Performed By: #### L P14 ####[address] [address] CO2 Blood 31 mEq/L Normal 21-32 [facility] Comment on above: Performed By: #### L P14 ####[facility] [place], [place] [address] Creatinine [Mass/Vol] 0.73 mg/dL Normal 0.51-0.95 [facility] Comment on above: Performed By: #### L P14 ####[address] [address] Glucose [Mass/Vol] 228 mg/dL High 70-99 [facility] Comment on above: Performed By: #### L P14 ####[address] [address] Protein [Mass/Vol] 7.0 g/dL Normal 6.4-8.2 [facility] Comment on above: Performed By: #### L P14 ####[address] [address] Urea nitrogen [Mass/Vol] 6 mg/dL Low 7-25 [facility] Comment on above: Performed By: #### L P14 ####[address] [address] Urea nitrogen/Creatinine [Mass ratio] 8 mg/mg Low 10-20 [facility] Comment on above: Performed By: #### L P14 ####[address] [address] Chloride [Moles/Vol] 98 mmol/L Normal 98-109 [facility] Comment on above: Result Comment: Test ing performed on an [employer] i-STAT. Performed By: #### L P14 ####[address] [address] Potassium [Moles/Vol] 4.2 mmol/L Normal 3.5-4.9 [facility] Comment on above: Result Comment: Test ing performed on an [employer] i-STAT. Performed By: #### L P14 ####[place] [address] Sodium [Moles/Vol] 138 mmol/L Normal 138-146 [facility] Comment on above: Result Comment: Test ing performed on an [employer] i-STAT. Performed By: #### L P14 ####[place] [address] Hemogramon 10-04-2018 Erythrocyte distribution width (RBC) [Ratio] 12.6 % Normal 11.5-15.9 [facility] Comment on above: Performed By: #### L CBC ####[place] [address] Hematocrit (Bld) [Volume fraction] 46.2 % Normal 37.0-47.0 [facility] Comment on above: Performed By: #### L CBC ####[place] [address] Hemoglobin (Bld) [Mass/Vol] 15.3 g/dL Normal 12.0-16.0 [facility] Comment on above: Performed By: #### L CBC ####[place] [address] MCH (RBC) [Entitic mass] 27.5 pg Normal 27.0-31.0 [facility] Comment on above: Performed By: #### L CBC ####[place] [address] MCHC (RBC) [Mass/Vol] 33.1 % Normal 32.0-36.0 [facility] Comment on above: Performed By: #### L CBC ####[place] [address] MCV (RBC) [Entitic vol] 83.1 fL Normal 81.0-99.0 [facility] Comment on above: Performed By: #### L CBC ####[place] [address] Platelet mean volume (Bld) [Entitic vol] 9.7 fL Normal 7.1-10.5 [facility] Comment on above: Performed By: #### L CBC ####[facility] [place] [address] Platelets (Bld) [#/Vol] 261 thou/cmm Normal 150-400 [facility] Comment on above: Performed By: #### L CBC ####[facility] [place] [address] RBC (Bld) [#/Vol] 5.56 mil/cmm High 4.20-5.40 [facility] Comment on above: Performed By: #### L CBC ####[place] [address] WBC (Bld) [#/Vol] 11.9 thou/cmm High 4.8-10.5 [facility] Comment on above: Performed By: #### L CBC ####[place] [address] Lactic acidon 10-04-2018 Lactate [Moles/Vol] 1.2 mmol/L Normal 0.4-2.0 [facility] Comment on above: Performed By: #### L CBCD #### [place] [address] Lipase Bloodon 10-04-2018 Lipase Blood 85 U/L Normal 73-393 [facility] Comment on above: Performed By: #### L LIP ####[place] [address] MDRD eGFRon 10-04-2018 GFR/1.73 sq M predicted among non-blacks MDRD (S/P/Bld) [Vol rate/Area] mL/min/{1.73_m2} Normal >60mL/min/ 1.73m2 [facility] Comment on above: Result Comment: If t he patient is , multiply the result by 1.210. Performed By: #### L GFR ####[place] [address] Macroscopic Urinalysison Appearance (U) CLEAR Normal [facility] Comment on above: Performed By: #### L CBCD #### [facility] [place] [address] Bilirubin Urine Negative Normal Negative [facility] Comment on above: Performed By: #### L CBCD #### [facility] [place] [address] Color (U) YELLOW Normal [facility] Comment on above: Performed By: #### L CBCD #### [facility] [place] [address] Glucose Ql (U) TRACE Abnormal Negative [facility] Comment on above: Performed By: #### L CBCD #### [facility] [place] [address] Hemoglobin,Urine Negative Normal Negative [facility] Comment on above: Performed By: #### L CBCD #### [place] [address] Ketone Urine Negative Normal Negative [facility] Comment on above: Performed By: #### L CBCD #### [facility] [place] [address] Leukocytes Esterase Negative Normal Negative [facility] Comment on above: Performed By: #### L CBCD #### [place] [address] Nitrites Urine Negative Normal Negative [facility] Comment on above: Performed By: #### L CBCD #### [place] [address] pH (U) 7.0 [pH] Normal 5.0-8.0 [facility] Comment on above: Performed By: #### L CBCD #### [facility] 1 [place] [address] Protein (U) [Mass/Vol] Negative Normal Negative [facility] Comment on above: Performed By: #### L CBCD #### [place] [address] Specific Metter, Ur 1.015 Normal 1.005-1 .03 0 [facility] Comment on above: Performed By: #### L CBCD #### [place] [id number] Urobilinogen,Ur 0.2 EU/dL Normal 0.2-1.0 [facility] Comment on above: Performed By: #### L CBCD #### [facility] [address] [place] [address] Troponin Ion 10-04-2018 Troponin I.cardiac [Mass/Vol] ng/mL Normal <=0.07 [facility] Comment on above: Performed By: #### L TRP ####[facility] [place] [address] Urine HCG, Qual.on 9 Beta HCG ( test) Ql (U) Negative Normal Negative [facility] Comment on above: Performed By: #### L HCG2 ####[facility] [place] [address] Basic Panelon 09-29-2018 Anion gap [Moles/Vol] 14 mmol/L Normal 8-20 [facility] Comment on above: Performed By: #### L GFR #### [facility] 1 [place] [address] Calcium [Mass/Vol] 8.9 mg/dL Normal 8.5-10.1 [facility] Comment on above: Performed By: #### L GFR #### [facility] 1 [place] [address] CO2 Blood 28 mEq/L Normal 21-32 [facility] Comment on above: Performed By: #### L GFR #### [place] [address] Creatinine [Mass/Vol] 0.60 mg/dL Normal 0.51-0.95 [facility] Comment on above: Performed By: #### L GFR #### [facility] [place] [address] Glucose [Mass/Vol] 154 mg/dL High 70-99 [facility] Comment on above: Performed By: #### L GFR #### [facility] [address] [place] [address] Urea nitrogen [Mass/Vol] 5 mg/dL Low 7-25 [facility] Comment on above: Performed By: #### L GFR #### [facility] 1 [place], [place] [address] Urea nitrogen/Creatinine [Mass ratio] 8 mg/mg Low 10-20 [facility] Comment on above: Performed By: #### L GFR #### [facility] 1 [place], [place] [address] Chloride [Moles/Vol] 101 mmol/L Normal 98-109 [facility] Comment on above: Result Comment: Test ing performed on an [employer] i-STAT. Performed By: #### L GFR #### [facility] 1 [place], [place] [address] Potassium [Moles/Vol] 3.9 mmol/L Normal 3.5-4.9 [facility] Comment on above: Result Comment: Test ing performed on an [employer]STAT. Performed By: #### L GFR #### [address] [address] Sodium [Moles/Vol] 139 mmol/L Normal 138-146 [facility] Comment on above: Result Comment: Test ing performed on an [employer] i[employer]STAT. Performed By: #### L GFR #### [address] [address] D-Dimer Quantitativeon 09-29 D-Dimer Quantitative 336 ng/mL(FEU) Normal <450 [facility] Comment on above: Result Comment: 500 ng/mL [...] of >=35.8%. Performed By: #### L DMR ####[address], [place] [address] Hemogramon 09-29-2018 Erythrocyte distribution width (RBC) [Ratio] 12.8 % Normal 11.5-15.9 [facility] Comment on above: Performed By: #### L GFR #### [facility] 1 [place], [place] [address] Hematocrit (Bld) [Volume fraction] 46.3 % Normal 37.0-47.0 [facility] Comment on above: Performed By: #### L GFR #### [facility] 1 [place] [address] Hemoglobin (Bld) [Mass/Vol] 15.7 g/dL Normal 12.0-16.0 [facility] Comment on above: Performed By: #### L GFR #### [place] [address] MCH (RBC) [Entitic mass] 27.8 pg Normal 27.0-31.0 [facility] Comment on above: Performed By: #### L GFR #### [place] [address] MCHC (RBC) [Mass/Vol] 33.9 % Normal 32.0-36.0 [facility] Comment on above: Performed By: #### L GFR #### [place] [address] MCV (RBC) [Entitic vol] 81.9 fL Normal 81.0-99.0 [facility] Comment on above: Performed By: #### L GFR #### [address] [address] Platelet mean volume (Bld) [Entitic vol] 10.0 fL Normal 7.1-10.5 [facility] Comment on above: Performed By: #### L GFR #### [address] [address] Platelets (Bld) [#/Vol] 231 thou/cmm Normal 150-400 [facility] Comment on above: Performed By: #### L GFR #### [place] [address] RBC (Bld) [#/Vol] 5.65 mil/cmm High 4.20-5.40 [facility] Comment on above: Performed By: #### L GFR #### [place] [address] WBC (Bld) [#/Vol] 10.8 thou/cmm High 4.8-10.5 [facility] Comment on above: Performed By: #### L GFR #### [place] [address] MDRD eGFRon 09-29-2018 GFR/1.73 sq M predicted among non-blacks MDRD (S/P/Bld) [Vol rate/Area] mL/min/{1.73_m2} Normal >60mL/min/ 1.73m2 [facility] Comment on above: Result Comment: If t he patient is , multiply the result by 1.210. Performed By: #### L GFR ####[place] [address] Troponin Ion 09-29-2018 Troponin I.cardiac [Mass/Vol] ng/mL Normal <=0.07 [facility] Comment on above: Performed By: #### L TRP ####[place] [address] Troponin I.cardiac [Mass/Vol] ng/mL Normal <=0.07 [facility] Comment on above: Performed By: #### L TRP ####[place] [address] Basic Panelon 09-25-2018 Creatinine [Mass/Vol] 0.64 mg/dL Normal 0.51-0.95 [facility] Comment on above: Performed By: #### L GFR #### [place] [address] Anion gap [Moles/Vol] 10 mmol/L Normal 8-16 [facility] Comment on above: Performed By: #### L GFR #### [place] [address] CO2 [Moles/Vol] 26 mmol/L Normal 21-32 [facility] Comment on above: Performed By: #### L GFR #### [facility] 1 [place], [place] [address] Glucose [Mass/Vol] 87 mg/dL Normal 70-99 [facility] Comment on above: Performed By: #### L GFR #### [facility] 1 [place], [place] [address] Urea nitrogen [Mass/Vol] 13 mg/dL Normal 7-18 [facility] Comment on above: Performed By: #### L GFR #### [facility] 1 [place], [place] [address] Calcium [Mass/Vol] 8.9 mg/dL Normal 8.5-10.1 [facility] Comment on above: Performed By: #### L GFR #### [address] [address] Chloride [Moles/Vol] 104 mmol/L Normal 98-107 [facility] Comment on above: Performed By: #### L GFR #### [address] [address] Potassium [Moles/Vol] 3.6 mmol/L Normal 3.5-5.1 [facility] Comment on above: Performed By: #### L GFR #### [address] [address] Sodium [Moles/Vol] 136 mmol/L Normal 136-145 [facility] Comment on above: Performed By: #### L GFR #### [address] [address] Glucose Meteron 09-25-2018 Glucose [Mass/Vol] 205 mg/dL High 70-99 [facility] Comment on above: Result Comment: CHAYITO MÉNDEZ Performed By: #### L P14 #### [address] [address] Hemogram/Diffon 09-25-2018 Abs Immature Grans 0.04 thou/cmm Normal 0.00-0.05 [facility] Comment on above: Performed By: #### L GFR #### [place] [address] Abs. Baso 0.06 thou/cmm Normal 0.01-0.08 [facility] Comment on above: Result Comment: Smea r scanned; tech agrees with automated differential Performed By: #### L GFR #### [place] [address] Abs. [place] 0.72 thou/cmm High 0.27-0.70 [facility] Comment on above: Performed By: #### L GFR #### [place] [address] Abs. Neut (ANC) 7.66 thou/cmm High 1.56-6.13 [facility] Comment on above: Performed By: #### L GFR #### [place] [address] Basophils/100 WBC (Bld) 0.5 % Normal [facility] Comment on above: Performed By: #### L GFR #### [place] [address] Eosinophils (Bld) [#/Vol] 0.13 thou/cmm Normal 0.00-0.31 [facility] Comment on above: Performed By: #### L GFR #### [place] [address] Eosinophils/100 WBC (Bld) 1.0 % Normal [facility] Comment on above: Performed By: #### L GFR #### [place] [address] Immature Grans 0.30 % Normal [facility] Comment on above: Performed By: #### L GFR #### [place] [address] Lymphocytes (Bld) [#/Vol] 4.07 thou/cmm High 1.18-3.74 [facility] Comment on above: Performed By: #### L GFR #### [place] [address] Lymphocytes/100 WBC (Bld) 32.1 % Normal [facility] Comment on above: Performed By: #### L GFR #### [facility] 1 [place] [address] Monocytes/100 WBC (Bld) 5.7 % Normal [facility] Comment on above: Performed By: #### L GFR #### [facility] 1 [place] [address] Seg Neutrophil 60.4 % Normal [facility] Comment on above: Performed By: #### L GFR #### [facility] 1 [place] [address] Erythrocyte distribution width (RBC) [Ratio] 12.5 % Normal 11.7-14.4 [facility] Comment on above: Performed By: #### L GFR #### [place] [address] Hematocrit (Bld) [Volume fraction] 49.4 % High 34.1-44.9 [facility] Comment on above: Performed By: #### L GFR #### [place] [address] Hemoglobin (Bld) [Mass/Vol] 16.6 g/dL High 11.2-15.7 [facility] Comment on above: Performed By: #### L GFR #### [place] [address] MCH (RBC) [Entitic mass] 27.8 pg Normal 25.6-32.2 [facility] Comment on above: Performed By: #### L GFR #### [place] [address] MCHC (RBC) [Mass/Vol] 33.6 % Normal 31.6-34.8 [facility] Comment on above: Performed By: #### L GFR #### [place] [address] MCV (RBC) [Entitic vol] 82.7 fL Normal 79.4-94.8 [facility] Comment on above: Performed By: #### L GFR #### [place] [address] Platelet mean volume (Bld) [Entitic vol] 9.8 fL Normal 9.4-12.3 [facility] Comment on above: Performed By: #### L GFR #### [facility] 1 [place], [place] [address] Platelets (Bld) [#/Vol] 241 thou/cmm Normal 182-369 [facility] Comment on above: Performed By: #### L GFR #### [facility] 1 [place], [place] [address] RBC (Bld) [#/Vol] 5.97 mil/cmm High 3.93-5.22 [facility] Comment on above: Performed By: #### L GFR #### [place] [address] RDW SD 37.4 fl Normal 36.4-46.3 [facility] Comment on above: Performed By: #### L GFR #### [facility] 1 [place], [place] [address] WBC (Bld) [#/Vol] 12.69 thou/cmm High 3.98-10.04 [facility] Comment on above: Performed By: #### L GFR #### [place] [address] MDRD GFRon 09-25-2018 GFR/1.73 sq M predicted among non-blacks MDRD (S/P/Bld) [Vol rate/Area] mL/min/{1.73_m2} Normal >60mL/min/ 1.73m2 [facility] Comment on above: Result Comment: If t he patient is , multiply the result by 1.210. Performed By: #### L GFR #### [facility] 1 [place] [id number] Urinalysis, reflexon 019 Reflex Comment see below Normal [facility] Comment on above: Result Comment: Refl ex to culture is not indicated based on established laboratory criteria. Performed By: #### L GFR #### [facility] 1 [place], [place] [address] Bacteria LM.HPF (Urine sed) [#/Area] NONE Normal None [facility] Comment on above: Performed By: #### L GFR #### [facility] 1 [place] [address] Ep Cells Urine 13.9 /hpf High 0.0-5.0 [facility] Comment on above: Performed By: #### L GFR #### [facility] 1 [place] [address] Hyaline Cast 2.4 /lpf High 0.0-1.0 [facility] Comment on above: Performed By: #### L GFR #### [place] [address] RBC LM.HPF (Urine sed) [#/Area] 1.3 /[HPF] Normal 0.0-5.0 [facility] Comment on above: Performed By: #### L GFR #### [place] [address] WBC, reflex 2.90 /hpf Normal 0.00-5.00 [facility] Comment on above: Performed By: #### L GFR #### [place] [address] Appearance (U) CLOUDY Normal [facility] Comment on above: Performed By: #### L GFR #### [place] [address] Bilirubin (U) [Mass/Vol] see below Abnormal Negative [facility] Comment on above: Result Comment: Dete cted (Unable to confirm). Performed By: #### L GFR #### [place] [address] Color (U) DK YELLOW Normal [facility] Comment on above: Performed By: #### L GFR #### [place] [address] Glucose Ql (U) 250 mg/dL Abnormal Negative [facility] Comment on above: Performed By: #### L GFR #### [place] [address] Hemoglobin,Urine Negative Normal Negative [facility] Comment on above: Performed By: #### L GFR #### [place] [address] Ketone Urine TRACE Abnormal Negative [facility] Comment on above: Performed By: #### L GFR #### [facility] 1 [place] [address] Leukocyte esterase Test strip Ql (U) TRACE Abnormal Negative [facility] Comment on above: Performed By: #### L GFR #### [facility] 1 [place] [address] Nitrite reflex Negative Normal Negative [facility] Comment on above: Performed By: #### L GFR #### [facility] 1 [place] [address] pH (U) 6.0 [pH] Normal 5.0-8.0 [facility] Comment on above: Performed By: #### L GFR #### [facility] 1 [place] [address] Protein (U) [Mass/Vol] TRACE Abnormal Negative [facility] Comment on above: Performed By: #### L GFR #### [place] [address] Specific Metter, Ur 1.030 Normal 1.005-1 .03 0 [facility] Comment on above: Performed By: #### L GFR #### [place] [address] Urobilinogen,Ur 1.0 EU/dL Normal 0.0-1.0 [facility] Comment on above: Performed By: #### L GFR #### [place] [address] Comprehensive Panelon 2018 ALP [Catalytic activity/Vol] 114 U/L Normal 46-116 [facility] Comment on above: Performed By: #### L GFR #### [facility] 1 [place] [address] Bilirubin [Mass/Vol] 1.4 mg/dL High 0.2-1.0 [facility] Comment on above: Performed By: #### L GFR #### [place] [address] AST [Catalytic activity/Vol] 19 U/L Normal 9-37 [facility] Comment on above: Performed By: #### L GFR #### [facility] 1 [place], [place] [address] Creatinine [Mass/Vol] 0.56 mg/dL Normal 0.51-0.95 [facility] Comment on above: Performed By: #### L GFR #### [facility] 1 [place], [place] [address] Protein [Mass/Vol] 6.8 g/dL Normal 6.4-8.2 [facility] Comment on above: Performed By: #### L GFR #### [facility] 1 [place], [place] [address] ALT [Catalytic activity/Vol] 18 U/L Normal 12-78 [facility] Comment on above: Performed By: #### L GFR #### [facility] 1 [place], [place] [address] Glucose [Mass/Vol] 266 mg/dL High 70-99 [facility] Comment on above: Performed By: #### L GFR #### [facility] [place], [place] [address] Albumin [Mass/Vol] 3.2 g/dL Low 3.4-5.0 [facility] Comment on above: Performed By: #### L GFR #### [facility] 1 [place], [place] [address] Anion gap [Moles/Vol] 11 mmol/L Normal 8-16 [facility] Comment on above: Performed By: #### L GFR #### [facility] 1 [place], [place] [address] Calcium [Mass/Vol] 8.9 mg/dL Normal 8.5-10.1 [facility] Comment on above: Performed By: #### L GFR #### [facility] 1 [place], [place] [address] CO2 [Moles/Vol] 25 mmol/L Normal 21-32 [facility] Comment on above: Performed By: #### L GFR #### [facility] [place], [place] [address] Urea nitrogen [Mass/Vol] 8 mg/dL Normal 7-18 [facility] Comment on above: Performed By: #### L GFR #### [facility] 1 [place] [address] Chloride [Moles/Vol] 100 mmol/L Normal 98-107 [facility] Comment on above: Performed By: #### L GFR #### [facility] [address] [place] [address] Potassium [Moles/Vol] 3.9 mmol/L Normal 3.5-5.1 [facility] Comment on above: Performed By: #### L GFR #### [facility] [address] [place] [address] Sodium [Moles/Vol] 132 mmol/L Low 136-145 [facility] Comment on above: Performed By: #### L GFR #### [place] [address] Hemogramon 09-24-2018 Erythrocyte distribution width (RBC) [Ratio] 12.6 % Normal 11.7-14.4 [facility] Comment on above: Performed By: #### L GFR #### [place] [address] Hematocrit (Bld) [Volume fraction] 47.5 % High 34.1-44.9 [facility] Comment on above: Performed By: #### L GFR #### [place] [address] Hemoglobin (Bld) [Mass/Vol] 15.9 g/dL High 11.2-15.7 [facility] Comment on above: Performed By: #### L GFR #### [place] [address] MCH (RBC) [Entitic mass] 27.7 pg Normal 25.6-32.2 [facility] Comment on above: Performed By: #### L GFR #### [place] [address] MCHC (RBC) [Mass/Vol] 33.5 % Normal 31.6-34.8 [facility] Comment on above: Performed By: #### L GFR #### [place] [address] MCV (RBC) [Entitic vol] 82.8 fL Normal 79.4-94.8 [facility] Comment on above: Performed By: #### L GFR #### [place] [address] Platelet mean volume (Bld) [Entitic vol] 9.9 fL Normal 9.4-12.3 [facility] Comment on above: Performed By: #### L GFR #### [place] [address] Platelets (Bld) [#/Vol] 248 thou/cmm Normal 182-369 [facility] Comment on above: Performed By: #### L GFR #### [place] [address] RBC (Bld) [#/Vol] 5.74 mil/cmm High 3.93-5.22 [facility] Comment on above: Performed By: #### L GFR #### [place] [address] RDW SD 38.0 fl Normal 36.4-46.3 [facility] Comment on above: Performed By: #### L GFR #### [place] [address] WBC (Bld) [#/Vol] 11.62 thou/cmm High 3.98-10.04 [facility] Comment on above: Performed By: #### L GFR #### [place] [address] Lipid Profileon 09-24-2018 Cholesterol in HDL [Mass/Vol] 35 mg/dL Normal >40 [facility] Comment on above: Performed By: #### L GFR #### [place] [address] Cholesterol in LDL [Mass/Vol] 120 mg/dL Normal [facility] Comment on above: Result Comment: No C AD and with fewer than 2 CAD risk factors <160 mg/dL No CAD but with 2 or more CAD risk factors <130 mg/dL Definite CAD or other atherosclerotic disease <100 mg/dL Performed By: #### L GFR #### [address], [place] [address] Cholesterol in LDL/Cholesterol in HDL [Mass ratio] 3.4 Normal 0.6-3.6 [facility] Comment on above: Result Comment: LDL, VLDL,LDL/HDL, Invalid if Triglyceride >400 Performed By: #### L GFR #### [facility] 1 [place], [place] [address] Cholesterol.total/Pipe sterol in HDL [Mass ratio] 5.9 {ratio} High 1.8-5.3 [facility] Comment on above: Performed By: #### L GFR #### [facility] 1 [place], [place] [address] Cholesterol [Mass/Vol] 205 mg/dL High 0-199 [facility] Comment on above: Result Comment: <200 Desirable 200-240 Borderline >240 High Performed By: #### L GFR #### [address] [address] Cholesterol in VLDL [Mass/Vol] 50 mg/dL Normal <50 Desired [facility] Comment on above: Performed By: #### L GFR #### [address] [address] Triglyceride [Mass/Vol] 252 mg/dL High 0-149 [facility] Comment on above: Result Comment: < 20 0 Desirable Result invalid if not a fasting specimen. Performed By: #### L GFR #### [address] [address] Protimeon 09-24-2018 INR Coag (PPP) [Relative time] 0.97 {INR} Normal 0.90-1.30 [facility] Comment on above: Result Comment: Charissa min K Antagonist (VKA) Therapeutic Range: INR 2 to 3 (Target INR of 2.5) Note: For patients treated with VKA drugs, such as warfarin, the [employer] 2012 Guideline recommends [...] to 3.5 target INR of 3). Rowan GH, et al. Chest 2012; 141:7S-47S Sampson RA, et al. [facility] 2017; 70: 252-289 Performed By: #### L GFR #### [place] [address] PT Coag (PPP) [Time] 10.1 s Normal 9.7-13.0 [facility] Comment on above: Performed By: #### L GFR #### [place] [address] Beta Hydroxybutyrateon 09-23 Beta Hydroxybutyrate 0.70 mmol/L High <0.10-0.27 [facility] Comment on above: Performed By: #### L LIP #### [place] [address] CPKon 09-23-2018 CK [Catalytic activity/Vol] 58 U/L Normal 26-192 [facility] Comment on above: Performed By: #### L P14 #### [place] [address] Comprehensive Panelon 2018 Anion gap [Moles/Vol] 19 mmol/L Normal 8-20 [facility] Comment on above: Performed By: #### L LIP #### [place] [address] Glucose [Mass/Vol] 422 mg/dL Critically high 70-99 [facility] Comment on above: Result Comment: RESU LT RECHECKED Performed By: #### L LIP #### [place] [address] Chloride [Moles/Vol] 98 mmol/L Normal 98-109 [facility] Comment on above: Result Comment: Test ing performed on an [employer] i-STAT. Performed By: #### L LIP #### [facility] [address] [place] [address] Potassium [Moles/Vol] 3.9 mmol/L Normal 3.5-4.9 [facility] Comment on above: Result Comment: Test ing performed on an [employer] i-STAT. Performed By: #### L LIP #### [facility] [address] [place] [address] Sodium [Moles/Vol] 135 mmol/L Low 138-146 [facility] Comment on above: Result Comment: Test ing performed on an [employer] i-STAT. Performed By: #### L LIP #### [place] [address] Albumin [Mass/Vol] 3.6 g/dL Normal 3.4-5.0 [facility] Comment on above: Performed By: #### L LIP #### [place] [address] ALP [Catalytic activity/Vol] 131 U/L High 46-116 [facility] Comment on above: Performed By: #### L LIP #### [facility] [address] [place] [address] ALT-SGPT Blood 21 U/L Normal 14-63 [facility] Comment on above: Performed By: #### L LIP #### [place] [address] AST-SGOT Blood 28 U/L Normal 15-37 [facility] Comment on above: Performed By: #### L LIP #### [facility] [address] [place] [address] Bilirubin Ql (U) 1.2 mg/dL High 0.2-1.0 [facility] Comment on above: Performed By: #### L LIP #### [facility] [address] [place] [address] Calcium [Mass/Vol] 9.3 mg/dL Normal 8.5-10.1 [facility] Comment on above: Performed By: #### L LIP #### [place] [address] CO2 Blood 26 mEq/L Normal 21-32 [facility] Comment on above: Performed By: #### L LIP #### [facility] [address] [place], [place] [address] Creatinine [Mass/Vol] 0.51 mg/dL Normal 0.51-0.95 [facility] Comment on above: Performed By: #### L LIP #### [facility] 1 [place], [place] [address] Protein [Mass/Vol] 7.7 g/dL Normal 6.4-8.2 [facility] Comment on above: Performed By: #### L LIP #### [facility] 1 [place], [place] [address] Urea nitrogen [Mass/Vol] 9 mg/dL Normal 7-25 [facility] Comment on above: Performed By: #### L LIP #### [facility] 1 [place], [place] [address] Urea nitrogen/Creatinine [Mass ratio] 18 mg/mg Normal 10-20 [facility] Comment on above: Performed By: #### L LIP #### [facility] [address] [place], [place] [address] D-Dimer Quantitativeon 09-23 D-Dimer Quantitative 417 ng/mL(FEU) Normal <450 [facility] Comment on above: Result Comment: 500 ng/mL [...] >=35.8%. Performed By: #### L P14 #### [facility] 1 [place], [place] [address] Glucose Bloodon 09-23-2018 Glucose [Mass/Vol] 393 mg/dL High 70-99 [facility] Comment on above: Performed By: #### L P14 #### [facility] [address] [place], [place] [address] Glucose Meteron 09-23-2018 Glucose [Mass/Vol] 317 mg/dL High 70-99 [facility] Comment on above: Result Comment: CHAYITO MÉNDEZ MD NOTIFIED [place] [address] Performed By: #### L LIP #### [address] [address] Hemogram/Diffon 09-23-2018 Abs. Baso 0.05 thou/cmm Normal 0.00-0.08 [facility] Comment on above: Performed By: #### L LIP #### [place] [address] Abs. [place] 0.38 thou/cmm Normal 0.20-1.00 [facility] Comment on above: Performed By: #### L LIP #### [place] [address] Abs. Neut (ANC) 8.10 thou/cmm High 3.00-5.67 [facility] Comment on above: Performed By: #### L LIP #### [address] [address] Basophils/100 WBC (Bld) 0.5 % Normal [facility] Comment on above: Performed By: #### L LIP #### [address] [address] Eosinophils (Bld) [#/Vol] 0.05 thou/cmm Normal 0.00-0.41 [facility] Comment on above: Performed By: #### L LIP #### [address] [address] Eosinophils/100 WBC (Bld) 0.5 % Normal [facility] Comment on above: Performed By: #### L LIP #### [place] [address] Erythrocyte distribution width (RBC) [Ratio] 12.9 % Normal 11.5-15.9 [facility] Comment on above: Performed By: #### L LIP #### [facility] 1 [place], [place] [address] Hematocrit (Bld) [Volume fraction] 47.8 % High 37.0-47.0 [facility] Comment on above: Performed By: #### L LIP #### [address] [address] Hemoglobin (Bld) [Mass/Vol] 16.5 g/dL High 12.0-16.0 [facility] Comment on above: Performed By: #### L LIP #### [address] [address] Lymphocytes (Bld) [#/Vol] 1.52 thou/cmm Normal 1.50-3.65 [facility] Comment on above: Performed By: #### L LIP #### [address] [address] Lymphocytes/100 WBC (Bld) 15.0 % Normal [facility] Comment on above: Performed By: #### L LIP #### [address] [address] MCH (RBC) [Entitic mass] 28.0 pg Normal 27.0-31.0 [facility] Comment on above: Performed By: #### L LIP #### [address] [address] MCHC (RBC) [Mass/Vol] 34.5 % Normal 32.0-36.0 [facility] Comment on above: Performed By: #### L LIP #### [address] [address] MCV (RBC) [Entitic vol] 81.0 fL Normal 81.0-99.0 [facility] Comment on above: Performed By: #### L LIP #### [address] [address] Monocytes/100 WBC (Bld) 3.8 % Normal [facility] Comment on above: Performed By: #### L LIP #### [facility] [address] [place] [address] Platelet mean volume (Bld) [Entitic vol] 10.2 fL Normal 7.1-10.5 [facility] Comment on above: Performed By: #### L LIP #### [facility] 1 [place], [place] [address] Platelets (Bld) [#/Vol] 202 thou/cmm Normal 150-400 [facility] Comment on above: Performed By: #### L LIP #### [facility] [address] [place] [address] RBC (Bld) [#/Vol] 5.90 mil/cmm High 4.20-5.40 [facility] Comment on above: Performed By: #### L LIP #### [place] [address] Seg Neutrophil 80.2 % Normal [facility] Comment on above: Performed By: #### L LIP #### [place] [address] WBC (Bld) [#/Vol] 10.1 thou/cmm Normal 4.8-10.8 [facility] Comment on above: Performed By: #### L LIP #### [place] [address] Hgb A1con 09-23-2018 HbA1c (Bld) [Mass fraction] 11.6 % High 4.2-6.3 [facility] Comment on above: Result Comment: Meth od is National Glycohemoglobin Standardization Program (NGSP) compliant. Performed By: #### L P14 #### [place] [address] HbA1c (Bld) [Mass fraction] 286 mg/dl Normal [facility] Comment on above: Performed By: #### L P14 #### [facility] [address] [place] [address] Lipase Bloodon 09-23-2018 Lipase Blood 131 U/L Normal 73-393 [facility] Comment on above: Performed By: #### L LIP #### [place] [address] MDRD eGFRon 09-23-2018 GFR/1.73 sq M predicted among non-blacks MDRD (S/P/Bld) [Vol rate/Area] mL/min/{1.73_m2} Normal >60mL/min/ 1.73m2 [facility] Comment on above: Result Comment: If t he patient is , multiply the result by 1.210. Performed By: #### L LIP #### [place] [address] Magnesium Bloodon 09-23-2018 Magnesium [Mass/Vol] 2.1 mg/dL Normal 1.6-2.6 [facility] Comment on above: Performed By: #### L P14 #### [place] [address] N-terminal Pro-BNPon 019 Natriuretic peptide B (Bld) [Mass/Vol] 2027 pg/mL Normal [facility] Comment on above: Result Comment: Acut e CHF Rule-in <50 yrs old >= 450 pg/ml >50 yrs old >= 900 pg/ml Abnormal Pro-BNP All patients >=300 pg/ml Performed By: #### L P14 #### [place] [address] Troponin Ion 09-23-2018 Troponin I.cardiac [Mass/Vol] ng/mL Normal 0.015-0.[address] [place] [address] Comment on above: Performed By: #### L P14 #### [place] [address] Troponin I.cardiac [Mass/Vol] ng/mL Normal 0.015-0.04 5 [facility] Comment on above: Performed By: #### L P14 #### [place] [address] Troponin I.cardiac [Mass/Vol] ng/mL Normal <=0.07 [facility] Comment on above: Performed By: #### L P14 #### [place] [address] Troponin I.cardiac [Mass/Vol] ng/mL Normal <=0.07 [facility] Comment on above: Performed By: #### L LIP #### [facility] [address] [place] [address] Comprehensive Panelon 2018 Albumin [Mass/Vol] 3.8 g/dL Normal 3.4-5.0 [facility] Comment on above: Performed By: #### L MCBD #### [facility] [address] [place] [address] ALP [Catalytic activity/Vol] 133 U/L High 46-116 [facility] Comment on above: Performed By: #### L MCBD #### [facility] [address] [place] [address] ALT-SGPT Blood 20 U/L Normal 14-63 [facility] Comment on above: Performed By: #### L MCBD #### [facility] [address] [place] [address] AST-SGOT Blood 17 U/L Normal 15-37 [facility] Comment on above: Performed By: #### L MCBD #### [facility] [address] [place] [address] Bilirubin Ql (U) 0.8 mg/dL Normal 0.2-1.0 [facility] Comment on above: Performed By: #### L MCBD #### [facility] [address] [place] [address] Calcium [Mass/Vol] 9.4 mg/dL Normal 8.5-10.1 [facility] Comment on above: Performed By: #### L MCBD #### [facility] [address] [place] [address] Creatinine [Mass/Vol] 0.58 mg/dL Normal 0.51-0.95 [facility] Comment on above: Performed By: #### L MCBD #### [facility] [address] [place] [address] Glucose [Mass/Vol] 375 mg/dL High 70-99 [facility] Comment on above: Performed By: #### L MCBD #### [facility] [address] [place] [address] Protein [Mass/Vol] 7.9 g/dL Normal 6.4-8.2 [facility] Comment on above: Performed By: #### L MCBD #### [facility] 1 [place], [place] [address] Urea nitrogen [Mass/Vol] 5 mg/dL Low 7-25 [facility] Comment on above: Performed By: #### L MCBD #### [facility] 1 [place], [place] [address] Urea nitrogen/Creatinine [Mass ratio] 9 mg/mg Low 10-20 [facility] Comment on above: Performed By: #### L MCBD #### [facility] 1 [place], [place] [address] Anion gap [Moles/Vol] 15 mmol/L Normal 8-20 [facility] Comment on above: Performed By: #### L MCBD #### [facility] 1 [place], [place] [address] CO2 Blood 27 mEq/L Normal 21-32 [facility] Comment on above: Performed By: #### L MCBD #### [facility] 1 [place], [place] [address] Chloride [Moles/Vol] 97 mmol/L Low 98-109 [facility] Comment on above: Result Comment: Test ing performed on an [employer]STAT. Performed By: #### L MCBD #### [address] [address] Potassium [Moles/Vol] 4.5 mmol/L Normal 3.5-4.9 [facility] Comment on above: Result Comment: Test ing performed on an [employer]STAT. Performed By: #### L MCBD #### [facility] 1 [place], [place] [address] Sodium [Moles/Vol] 135 mmol/L Low 138-146 [facility] Comment on above: Result Comment: Test ing performed on an [employer]STAT. Performed By: #### L MCBD #### [address] [address] Hemogram/Diffon 09-06-2018 Abs. Baso 0.05 thou/cmm Normal 0.00-0.08 [facility] Comment on above: Performed By: #### L MCBD #### [facility] 1 [place], [place] [address] Abs. [place] 0.43 thou/cmm Normal 0.20-1.00 [facility] Comment on above: Performed By: #### L MCBD #### [facility] 1 [place], [place] [address] Abs. Neut (ANC) 5.29 thou/cmm Normal 3.00-5.67 [facility] Comment on above: Performed By: #### L MCBD #### [facility] 1 [place], [place] [address] Basophils/100 WBC (Bld) 0.7 % Normal A [facility] Comment on above: Performed By: #### L MCBD #### [address] [address] Eosinophils (Bld) [#/Vol] 0.11 thou/cmm Normal 0.00-0.41 [facility] Comment on above: Performed By: #### L MCBD #### [place] [address] Eosinophils/100 WBC (Bld) 1.4 % Normal [facility] Comment on above: Performed By: #### L MCBD #### [address] [address] Erythrocyte distribution width (RBC) [Ratio] 12.9 % Normal 11.5-15.9 [facility] Comment on above: Performed By: #### L MCBD #### [facility] [address] [place] [address] Hematocrit (Bld) [Volume fraction] 48.3 % High 37.0-47.0 [facility] Comment on above: Performed By: #### L MCBD #### [facility] 1 [place], [place] [address] Hemoglobin (Bld) [Mass/Vol] 16.4 g/dL High 12.0-16.0 [facility] Comment on above: Performed By: #### L MCBD #### [facility] 1 [place], [place] [address] Lymphocytes (Bld) [#/Vol] 1.72 thou/cmm Normal 1.50-3.65 [facility] Comment on above: Performed By: #### L MCBD #### [facility] 1 [place], [place] [address] Lymphocytes/100 WBC (Bld) 22.6 % Normal [facility] Comment on above: Performed By: #### L MCBD #### [facility] 1 [place], [place] [address] MCH (RBC) [Entitic mass] 27.8 pg Normal 27.0-31.0 [facility] Comment on above: Performed By: #### L MCBD #### [facility] [address] [place] [address] MCHC (RBC) [Mass/Vol] 34.0 % Normal 32.0-36.0 [facility] Comment on above: Performed By: #### L MCBD #### [facility] [address] [place] [address] MCV (RBC) [Entitic vol] 82.0 fL Normal 81.0-99.0 A [facility] Comment on above: Performed By: #### L MCBD #### [place] [address] Monocytes/100 WBC (Bld) 5.7 % Normal [facility] Comment on above: Performed By: #### L MCBD #### [facility] [address] [place] [address] Platelet mean volume (Bld) [Entitic vol] 10.2 fL Normal 7.1-10.5 [facility] Comment on above: Performed By: #### L MCBD #### [facility] 1 [place], [place] [address] Platelets (Bld) [#/Vol] 211 thou/cmm Normal 150-400 [facility] Comment on above: Performed By: #### L MCBD #### [place] [address] RBC (Bld) [#/Vol] 5.89 mil/cmm High 4.20-5.40 [facility] Comment on above: Performed By: #### L MCBD #### [facility] [address] [place] [address] Seg Neutrophil 69.6 % Normal [facility] Comment on above: Performed By: #### L MCBD #### [facility] [address] [place] [address] WBC (Bld) [#/Vol] 7.6 thou/cmm Normal 4.8-10.8 [facility] Comment on above: Performed By: #### L MCBD #### [place] [address] Ketoneson 09-06-2018 Ketones Ql (U) Negative Normal Negative [facility] Comment on above: Performed By: #### L MCBD #### [place] [address] Lipase Bloodon 09-06-2018 Lipase Blood 112 U/L Normal 73-393 [facility] Comment on above: Performed By: #### L LIP #### [place] [address] MDRD eGFRon 09-06-2018 GFR/1.73 sq M predicted among non-blacks MDRD (S/P/Bld) [Vol rate/Area] mL/min/{1.73_m2} Normal >60mL/min/ 1.73m2 [facility] Comment on above: Result Comment: If t he patient is , multiply the result by 1.210. Performed By: #### L LIP #### [facility] [address] [place] [address] Macroscopic Urinalysison Appearance (U) CLEAR Normal [facility] Comment on above: Performed By: #### L LIP #### [place] [address] Bilirubin Urine Negative Normal Negative [facility] Comment on above: Performed By: #### L LIP #### [place] [address] Color (U) YELLOW Normal [facility] Comment on above: Performed By: #### L LIP #### [facility] [address] [place] [address] Glucose Ql (U) 2+ Abnormal Negative [facility] Comment on above: Performed By: #### L LIP #### [facility] [address] [place] [address] Hemoglobin,Urine Negative Normal Negative [facility] Comment on above: Performed By: #### L LIP #### [facility] [address] [place] [address] Ketone Urine Negative Normal Negative [facility] Comment on above: Performed By: #### L LIP #### [place] [address] Leukocytes Esterase Negative Normal Negative [facility] Comment on above: Performed By: #### L LIP #### [place] [address] Nitrites Urine Negative Normal Negative [facility] Comment on above: Performed By: #### L LIP #### [place] [address] pH (U) 7.0 [pH] Normal 5.0-8.0 [facility] Comment on above: Performed By: #### L LIP #### [place] [address] Protein (U) [Mass/Vol] Negative Normal Negative [facility] Comment on above: Performed By: #### L LIP #### [place] [address] Specific Metter, Ur 1.020 Normal 1.005-1 .03 0 [facility] Comment on above: Performed By: #### L LIP #### [place] [address] Urobilinogen,Ur 0.2 EU/dL Normal 0.0-1.0 [facility] Comment on above: Performed By: #### L LIP #### [place] [address] Basic Panelon 08-16-2018 Anion gap [Moles/Vol] 16 mmol/L Normal 8-20 [facility] Comment on above: Performed By: #### L MCBD #### [facility] 1 [place], [place] [address] Chloride [Moles/Vol] 99 mmol/L Normal 98-109 [facility] Comment on above: Result Comment: Test ing performed on an [employer]. Performed By: #### L MCBD #### [facility] 1 [place], [place] [address] Potassium [Moles/Vol] 3.9 mmol/L Normal 3.5-4.9 [facility] Comment on above: Result Comment: Test ing performed on an [employer]. Performed By: #### L MCBD #### [facility] 1 [place], [place] [address] Sodium [Moles/Vol] 137 mmol/L Low 138-146 [facility] Comment on above: Result Comment: Test ing performed on an [employer]. Performed By: #### L MCBD #### [facility] [address] [place], [place] [address] Calcium [Mass/Vol] 9.3 mg/dL Normal 8.5-10.1 [facility] Comment on above: Performed By: #### L MCBD #### [facility] 1 [place], [place] [address] CO2 Blood 26 mEq/L Normal 21-32 [facility] Comment on above: Performed By: #### L MCBD #### [address] [address] Creatinine [Mass/Vol] 0.57 mg/dL Normal 0.51-0.95 [facility] Comment on above: Performed By: #### L MCBD #### [facility] 1 [place], [place] [address] Glucose [Mass/Vol] 336 mg/dL High 70-99 [facility] Comment on above: Performed By: #### L MCBD #### [address] [address] Urea nitrogen [Mass/Vol] 7 mg/dL Normal 7-25 [facility] Comment on above: Performed By: #### L MCBD #### [facility] [address] [place] [address] Urea nitrogen/Creatinine [Mass ratio] 12 mg/mg Normal 10-20 [facility] Comment on above: Performed By: #### L MCBD #### [facility] [address] [place] [address] Hemogram/Diffon 08-16-2018 Abs. Baso 0.08 thou/cmm Normal 0.00-0.08 [facility] Comment on above: Performed By: #### L MCBD #### [facility] [address] [place] [address] Abs. [place] 0.61 thou/cmm Normal 0.20-1.00 [facility] Comment on above: Performed By: #### L MCBD #### [facility] [address] [place] [address] Abs. Neut (ANC) 8.11 thou/cmm High 3.00-5.67 [facility] Comment on above: Performed By: #### L MCBD #### [facility] [address] [place] [address] Basophils/100 WBC (Bld) 0.7 % Normal A [facility] Comment on above: Performed By: #### L MCBD #### [facility] [address] [place] [address] Eosinophils (Bld) [#/Vol] 0.07 thou/cmm Normal 0.00-0.41 [facility] Comment on above: Performed By: #### L MCBD #### [place] [address] Eosinophils/100 WBC (Bld) 0.6 % Normal [facility] Comment on above: Performed By: #### L MCBD #### [facility] [address] [place] [address] Erythrocyte distribution width (RBC) [Ratio] 12.9 % Normal 11.5-15.9 [facility] Comment on above: Performed By: #### L MCBD #### [place] [address] Hematocrit (Bld) [Volume fraction] 46.9 % Normal 37.0-47.0 [facility] Comment on above: Performed By: #### L MCBD #### [facility] 1 [place], [place] [address] Hemoglobin (Bld) [Mass/Vol] 16.3 g/dL High 12.0-16.0 [facility] Comment on above: Performed By: #### L MCBD #### [facility] 1 [place], [place] [address] Lymphocytes (Bld) [#/Vol] 2.63 thou/cmm Normal 1.50-3.65 [facility] Comment on above: Performed By: #### L MCBD #### [facility] [address] [place], [place] [address] Lymphocytes/100 WBC (Bld) 22.9 % Normal [facility] Comment on above: Performed By: #### L MCBD #### [address] [address] MCH (RBC) [Entitic mass] 28.0 pg Normal 27.0-31.0 [facility] Comment on above: Performed By: #### L MCBD #### [address] [address] MCHC (RBC) [Mass/Vol] 34.8 % Normal 32.0-36.0 [facility] Comment on above: Performed By: #### L MCBD #### [address] [address] MCV (RBC) [Entitic vol] 80.4 fL Low 81.0-99.0 [facility] Comment on above: Performed By: #### L MCBD #### [address] [address] Monocytes/100 WBC (Bld) 5.3 % Normal [facility] Comment on above: Performed By: #### L MCBD #### [address] [address] Platelet mean volume (Bld) [Entitic vol] 10.1 fL Normal 7.1-10.5 [facility] Comment on above: Performed By: #### L MCBD #### [facility] 1 [place], [place] [address] Platelets (Bld) [#/Vol] 257 thou/cmm Normal 150-400 [facility] Comment on above: Performed By: #### L MCBD #### [facility] [address] [place] [address] RBC (Bld) [#/Vol] 5.83 mil/cmm High 4.20-5.40 [facility] Comment on above: Performed By: #### L MCBD #### [facility] [address] [place] [address] Seg Neutrophil 70.5 % Normal [facility] Comment on above: Performed By: #### L MCBD #### [facility] [address] [place] [address] WBC (Bld) [#/Vol] 11.5 thou/cmm High 4.8-10.8 [facility] Comment on above: Performed By: #### L MCBD #### [place] [address] MDRD eGFRon 08-16-2018 GFR/1.73 sq M predicted among non-blacks MDRD (S/P/Bld) [Vol rate/Area] mL/min/{1.73_m2} Normal >60mL/min/ 1.73m2 [facility] Comment on above: Result Comment: If t he patient is , multiply the result by 1.210. Performed By: #### L MCBD #### [facility] [address] [place] [address] Basic Panelon 07-31-2018 Anion gap [Moles/Vol] 17 mmol/L Normal 8-20 [facility] Comment on above: Performed By: #### L MCBD #### [facility] [address] [place] [id number] Chloride [Moles/Vol] 97 mmol/L Low 98-109 [facility] Comment on above: Result Comment: Test ing performed on an [employer] i-STAT. Performed By: #### L MCBD #### [address] [place], [place] [address] Potassium [Moles/Vol] 4.4 mmol/L Normal 3.5-4.9 [facility] Comment on above: Result Comment: Test ing performed on an [employer]. Performed By: #### L MCBD #### [facility] 1 [place], [place] [address] Sodium [Moles/Vol] 134 mmol/L Low 138-146 [facility] Comment on above: Result Comment: Test ing performed on an [employer]STAT. Performed By: #### L MCBD #### [facility] 1 [place], [place] [address] Calcium [Mass/Vol] 9.2 mg/dL Normal 8.5-10.1 [facility] Comment on above: Performed By: #### L MCBD #### [address] [address] CO2 Blood 24 mEq/L Normal 21-32 [facility] Comment on above: Performed By: #### L MCBD #### [address] [address] Creatinine [Mass/Vol] 0.52 mg/dL Normal 0.51-0.95 [facility] Comment on above: Performed By: #### L MCBD #### [facility] [address] [place], [place] [address] Glucose [Mass/Vol] 444 mg/dL Critically high 70-99 [facility] Comment on above: Performed By: #### L MCBD #### [facility] [address] [place], [place] [address] Urea nitrogen [Mass/Vol] 7 mg/dL Normal 7-25 [facility] Comment on above: Performed By: #### L MCBD #### [facility] [address] [place], [place] [address] Urea nitrogen/Creatinine [Mass ratio] 14 mg/mg Normal 10-20 [facility] Comment on above: Performed By: #### L MCBD #### [address] [address] Hemogram/Diffon 07-31-2018 Abs. Baso 0.05 thou/cmm Normal 0.00-0.08 [facility] Comment on above: Performed By: #### L SHCG #### [facility] [address] [place], [place] [address] Abs. [place] 0.63 thou/cmm Normal 0.20-1.00 [facility] Comment on above: Performed By: #### L SHCG #### [facility] [address] [place] [address] Abs. Neut (ANC) 8.64 thou/cmm High 3.00-5.67 [facility] Comment on above: Performed By: #### L SHCG #### [place] [address] Basophils/100 WBC (Bld) 0.4 % Normal [facility] Comment on above: Performed By: #### L SHCG #### [place] [address] Eosinophils (Bld) [#/Vol] 0.16 thou/cmm Normal 0.00-0.41 [facility] Comment on above: Performed By: #### L SHCG #### [place] [address] Eosinophils/100 WBC (Bld) 1.4 % Normal [facility] Comment on above: Performed By: #### L SHCG #### [place] [address] Erythrocyte distribution width (RBC) [Ratio] 13.4 % Normal 11.5-15.9 [facility] Comment on above: Performed By: #### L SHCG #### [place] [address] Hematocrit (Bld) [Volume fraction] 49.1 % High 37.0-47.0 [facility] Comment on above: Performed By: #### L SHCG #### [place] [address] Hemoglobin (Bld) [Mass/Vol] 17.0 g/dL High 12.0-16.0 [facility] Comment on above: Performed By: #### L SHCG #### [facility] [address] [place], [place] [address] Lymphocytes (Bld) [#/Vol] 2.12 thou/cmm Normal 1.50-3.65 [facility] Comment on above: Performed By: #### L SHCG #### [facility] 1 [place], [place] [address] Lymphocytes/100 WBC (Bld) 18.3 % Normal [facility] Comment on above: Performed By: #### L SHCG #### [facility] 1 [place], [place] [address] MCH (RBC) [Entitic mass] 27.8 pg Normal 27.0-31.0 [facility] Comment on above: Performed By: #### L SHCG #### [facility] 1 [place], [place] [address] MCHC (RBC) [Mass/Vol] 34.6 % Normal 32.0-36.0 [facility] Comment on above: Performed By: #### L SHCG #### [facility] 1 [place], [place] [address] MCV (RBC) [Entitic vol] 80.4 fL Low 81.0-99.0 A [facility] Comment on above: Performed By: #### L SHCG #### [address] [address] Monocytes/100 WBC (Bld) 5.4 % Normal [facility] Comment on above: Performed By: #### L SHCG #### [facility] 1 [place], [place] [address] Platelet mean volume (Bld) [Entitic vol] 10.2 fL Normal 7.1-10.5 [facility] Comment on above: Performed By: #### L SHCG #### [facility] 1 [place], [place] [address] Platelets (Bld) [#/Vol] 209 thou/cmm Normal 150-400 [facility] Comment on above: Performed By: #### L SHCG #### [facility] [address] [place], [place] [address] RBC (Bld) [#/Vol] 6.11 mil/cmm High 4.20-5.40 [facility] Comment on above: Performed By: #### L SHCG #### [facility] 1 [place] [address] Seg Neutrophil 74.5 % Normal [facility] Comment on above: Performed By: #### L SHCG #### [facility] 1 [place] [address] WBC (Bld) [#/Vol] 11.6 thou/cmm High 4.8-10.8 [facility] Comment on above: Performed By: #### L SHCG #### [place] [address] MDRD eGFRon 07-31-2018 GFR/1.73 sq M predicted among non-blacks MDRD (S/P/Bld) [Vol rate/Area] mL/min/{1.73_m2} Normal >60mL/min/ 1.73m2 [facility] Comment on above: Result Comment: If t he patient is , multiply the result by 1.210. Performed By: #### L MCBD #### [place] [address] Rapid Influenza A/Bon 2018 Rapid Influenza A/B See below Normal Negative [facility] Comment on above: Result Comment: Nega tive for influenza A and B. Performed By: #### L MCBD #### [place] [address] Urinalysis Routineon 019 Appearance (U) CLEAR Normal [facility] Comment on above: Performed By: #### L MCBD #### [place] [address] Bilirubin Urine Negative Normal Negative [facility] Comment on above: Performed By: #### L MCBD #### [place] [address] Color (U) YELLOW Normal [facility] Comment on above: Performed By: #### L MCBD #### [address], [place] [address] Ep Cells Urine 2-5 Normal 0-5 [facility] Comment on above: Performed By: #### L MCBD #### [facility] 1 [place] [address] Glucose Ql (U) 2+ Abnormal Negative [facility] Comment on above: Performed By: #### L MCBD #### [facility] [address] [place] [address] Hemoglobin,Urine Negative Normal Negative [facility] Comment on above: Performed By: #### L MCBD #### [facility] [address] [place] [address] Ketone Urine Negative Normal Negative [facility] Comment on above: Performed By: #### L MCBD #### [facility] [address] [place] [address] Leukocytes Esterase Negative Normal Negative [facility] Comment on above: Performed By: #### L MCBD #### [facility] [address] [place] [address] Nitrites Urine Negative Normal Negative [facility] Comment on above: Performed By: #### L MCBD #### [place] [address] pH (U) 6.0 [pH] Normal 5.0-8.0 [facility] Comment on above: Performed By: #### L MCBD #### [facility] [address] [place] [address] Protein (U) [Mass/Vol] TRACE Abnormal Negative [facility] Comment on above: Performed By: #### L MCBD #### [facility] 1 [place] [address] RBC LM.HPF (Urine sed) [#/Area] 0-3 Normal 0-3 [facility] Comment on above: Performed By: #### L MCBD #### [facility] 1 [place] [address] Specific Metter, Ur 1.015 Normal 1.005-1 .03 0 [facility] Comment on above: Performed By: #### L MCBD #### [address] [address] Urobilinogen,Ur 0.2 EU/dL Normal 0.0-1.0 [facility] Comment on above: Performed By: #### L MCBD #### [facility] 1 [place] [address] WBC LM.HPF (Urine sed) [#/Area] 0-2 Normal 0-5 [facility] Comment on above: Performed By: #### L MCBD #### [place] [address] CASE MANAGEMon 07-21-2018 CASE MANAGEM HNO ID: [id number] Author: Jameson Sanders (Lisw) Service: (none) Author Type: Edging Machine Feeder Type: Care Mgt Progress Note Filed: 07/21/2018 [...] CONTACT RESOURCES: NARCISA provided financial resources for [facility]. The pt plans to [facility] for anxiety and depression. NARCISA [facility] and they will contact the pt tomorrow. SIGNATURE: NARCISA [facility] PATIENT NAME: Trenton Jackson DATE: July 21, 2018 TIME: 1:10 PM PAGER/CONTACT #: [phone] [facility] CASE MGT INIT [facility] 2018 CASE MGT INIT [facility] HNO ID: [id number] Author: Jameson Sanders (Lisw) Service: (none) Author Type: Edging Machine Feeder Type: Care Mgt Initial Assessment Filed: 07/21/2018 1:09 PM Note Text: CARE MANAGEMENT: ASSESSMENT AND DISCHARGE PLAN SERVICE DATE: 07/21/2018 SERVICE TIME: 12:00 PM PRIMARY CARE PHYSICIAN: Uziel Conteh MD - Pt confirmed and [facility]able [facility]. CONTINUOUS PROCESS ROTARY DRUM TANNER sent a task. ADMISSION STATUS: Observation Needs Prior to Discharge: Ready for Discharge MEDICAL: 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 Stated Goals: To return home to life as it was Health Insurance: [facility] MEDICAID None Health Issues Impacting Discharge Plan: Newly diagnosed Chest Pain and Chronic CAD, uncontrolled diabetes, anxiety Last Admission Date: Previous admit date: 06/08/2018 Is this Within the Past 30 days? No Advance Directive: Current Advance Directive: None Election Supervisor Attempted to Assist with AD Completion: Yes [...] Glucometer Has the Patient Been in a Nursing Home Facility in the Past 30 days? No SOCIAL: Living Arrangement: Home Lives With: Spouse and children Financial Resources: Unemployed Primary Contact: Extended Emergency Contact Information Primary Emergency Contact: Curyr Jackson Jr Address: [address] [place] [address] [facility] [facility] Mobile Relation: Spouse Secondary Emergency Contact: Rebecca Dueñas Address: [place] [address] [facility] [facility] Relation: Mother Supportive: Yes Other Important Patient [...] 0 I feel financially burdened by my [id number]-obrdii expenses for my prescription medication: Disagree completely [...] Home Psych Facility/Counseling [facility] NARCISA met with the pt at bedside [...] did provide a list of resources for [employer]. The pt has been active with [facility] in the past for anxiety and depression and plans to make another appointment as she has been struggling again. SIGNATURE: NARCISA [facility] PATIENT NAME: Trenton aJckson DATE: July 21, 2018 TIME: 1:00 PM PAGER/CONTACT #: [phone] [facility] Letter Text July 21, 2018 Trenton Jackson [address] [place] [id number] Dear Ms. Jackson, The nurses and staff of [facility] hope this letter finds you feeling well [...] free to contact me, Bety Alcaraz RN ([phone]) or email me at, [email or web address] Additionally, you will receive a [...] participation and thank you for choosing the [facility] for your health needs. Sincerely, Nurse Asphalt Still Operator: Bety Alcaraz RN ([phone]) [facility] Unit: 3 Observation Letter Text July 22, 2018 Department of Hospital Medicine [address] [place] [address] Re: Trenton Jackson Dear Dr. Conteh: A patient of your practice, Trenton Jackson (: 1970) was treated at [facility] under the care of the [facility] Department of Hospital Medicine, and discharged on 07/21/2018. A transcribed discharge summary should be forthcoming promptly. If you need additional information or assistance, you may contact the Department of Hospital Medicine at [phone] during regular business hours, and we?ll be happy to assist you. Best Regards, Juancarlos Ann Normal [facility] CARRIEDSon 07-21-2018 [facility] HNO ID: [id number] Author: Magda Molina) Hope Service: Hospital Medicine Author Type: Nurse Practitioner Type: Discharge Summaries Filed: 07/21/2018 11:41 AM Note Text: ----- Attestation signed by Lei Roman at 07/21/2018 12:09 PM [facility] STAFF PHYSICIAN NOTE OF PERSONAL INVOLVEMENT IN CARE I have reviewed the documentation obtained and documented by the team healthcare provider (medical student, fellow, resident, nurse practitioner or physician stonecutter assistant) and I personally participated in the jones components. I have discussed the case and management of the patient's care. Lei Roman MD Hospital Medicine Staff PAGER: [phone] DATE of Service: 07/21/2018 TIME of Service: [...] provider in one week and with primary miller distillery as scheduled. We discussed increasing dose of [...] mild, abuse Frailty Coronary artery disease involving jamul coronary artery of jamul heart without angina pectoris Resolved Problems: * [...] to call for appointment?: Yes Uziel Conteh [phone] [place] [address] PCP Requested Referral Additional Provider to Provider [...] called for EMS to take her to [place] ED around 7 am. Patient was recommended to go to a hospital with PCI capacity but the [facility] Initial work up in the ED [...] disorder, with long-term current use of insulin ([facility]) 12/06/2017 - Present Primary hypertension 12/06/2017 - Present Dyslipidemia 11/30/2017 - Present Smoker 12/02/2017 - Present Frailty 07/20/2018 - Present Coronary artery disease involving jamul coronary artery of jamul heart without angina pectoris 07/21/2018 - Present Chronic systolic heart failure (HCC) 06/08/2018 - Present Chest pain at rest 11/30/2017 - Present Cardiomyopathy ([facility]) 12/02/2017 - Present Cannabis use disorder, mild, abuse 07/20/2018 - Present Anxiety 02/20/2017 - Present Resolved Hospital Problems as of 07/21/2018 None Transitions of Care Critical Issues: SPECIALIST FOLLOW-UP: PCP in 1 week, Cardiology as scheduled LABS AND PROCEDURES PENDING AT DISCHARGE: No pending results. FOLLOW-UP APPOINTMENTS ALREADY SCHEDULED WITH A [facility] PROVIDER: No future appointments. ALLERGIES Allergen [...] minutes SIGNATURE: Magda Truong APRN.CNP PAGER/CONTACT #: [phone] DATE: July 21, 2018 TIME: 11:38 AM [facility] CONSULTon 07-21-2018 CONSULT HNO ID: [id number] Author: Torito Foley Service: Cardiovascular Disease Author [...] including tobacco use. The patient presented to [place] emergency room with a complaint of a [...] (UNIFINE PENTIPS) 31 gauge x 5/16 ndle Unknown at Unknown time No No [...] was unchanged from previous ECGs. Recent Labs 07/20/18 2035 07/20/18 1730 07/20/18 1120 WBC -- 11.50* 9.5 HB -- 16.7* [...] ABGs Past 72 Hour Labs: Recent Labs 07/21/1844707/20/18203407/20/18 1730 07/20/18 1120 TROPT <0.010 <0.010 < > -- [...] appointments with prior cardiologists. Torito Foley MD, [facility]le [facility] Yuliya Richards Department of Cardiovascular Medicine Heart and Vascular [facility] Office [facility]/ [address], [address] [place] [address] Tel. [phone] SIGNATURE: Torito Foley MD PATIENT NAME: Trenton Jackson DATE: July 21, 2018 TIME: 8:51 AM PAGER/CONTACT #: [phone] Normal [facility] Lipaseon 07-21-2018 Lipase enzyme act/vol 21 U/L Normal [facility] Comment on above: Performed By: #### L IPA ####[facility] [address] [place], [place] [phone] NURSING PROGon 07-21-2018 Protein mass conc HNO ID: [id number] Author: Dayanara (Rn) CHAYITO Alexander Service: (none) Author Type: Registered Nurse Type: Nursing Progress Note Filed: 07/21/2018 1:30 PM Note Text: Nursing Progress Note Patient Name: Trenton Jackson Patient Location: [place] [id number] Daily Note: 0745 RN assumed care of [...] c/o nausea, and pain, sobbing. Medicated per MAR, HR 113 ST on tele. Patient wants to eat, but has nausea. 1100 Patient sleeping, no signs of distress, HR 96 SR on tele. 1300 Patient resting in bed, denies pain and nausea at this time HR 88 SR on tele 1330 Discharge instructions given, IV removed, no issues, tele removed, returned, all questions answered. This note was completed by: Dayanara Alexander RN [facility] Protein mass conc HNO ID: [id number] Author: Katrina (Rn) CHAYITO Patrick Service: (none) Author Type: Registered Nurse Type: Nursing Progress Note Filed: 07/21/2018 6:50 AM Note Text: Nursing Progress Note Patient Name: Trenton Jackson Patient Location[id number] Daily Note: 1940: patient observed in bed [...] to monitor patient condition. Ns infusing 200ml/hr 2200: IV fluid stopped. Patient observed in bed [...] note was completed by: Katrina Patrick RN [facility] PROGRESSon 07-21-2018 Protein mass conc HNO ID: [id number] Author: Ghassan Logan Service: General Internal Medicine [...] Logan MD July 21, 2018 6:51 AM [facility] Troponin Ton 07-21-2018 Troponin T.cardiac mass conc ug/L Normal 0.000-0.02 9 [facility] Comment on above: Performed By: #### T NT ####[facility] [address] [place] [phone] Basic Panelon 07-20-2018 Anion gap [Moles/Vol] 17 mmol/L Normal 8-20 [facility] Comment on above: Performed By: #### L SHCG #### [address] [address] Chloride [Moles/Vol] 95 mmol/L Low 98-109 [facility] Comment on above: Result Comment: Test ing performed on an [employer] i-STAT. Performed By: #### L SHCG #### [address] [address] Sodium [Moles/Vol] 135 mmol/L Low 138-146 [facility] Comment on above: Result Comment: Test ing performed on an [employer] i-STAT. Performed By: #### L SHCG #### [facility] 1 [place], [place] [address] Calcium [Mass/Vol] 9.4 mg/dL Normal 8.5-10.1 [facility] Comment on above: Performed By: #### L SHCG #### [facility] 1 [place], [place] [address] CO2 Blood 27 mEq/L Normal 21-32 [facility] Comment on above: Performed By: #### L SHCG #### [address] [address] Creatinine [Mass/Vol] 0.54 mg/dL Normal 0.51-0.95 [facility] Comment on above: Performed By: #### L SHCG #### [address] [address] Glucose [Mass/Vol] 400 mg/dL High 70-99 [facility] Comment on above: Performed By: #### L SHCG #### [facility] 1 [place], [place] [address] Urea nitrogen [Mass/Vol] 5 mg/dL Low 7-25 [facility] Comment on above: Performed By: #### L SHCG #### [address] [address] Urea nitrogen/Creatinine [Mass ratio] 9 mg/mg Low 10-20 [facility] Comment on above: Performed By: #### L SHCG #### [facility] 1 [place], [place] [address] CBCon 07-20-2018 Erythrocyte distribution width Ratio (RBC) 13.3 % Normal 11.5-15.0 [facility] Comment on above: Performed By: #### C BC ####[facility] [address] [place] [phone] Hematocrit Volume Fraction (Bld) 48.4 % High 36.0-46.0 [facility] Comment on above: Performed By: #### C BC ####[facility] [address] [place] [address] Hemoglobin mass conc (Bld) 16.7 g/dL High 11.5-15.5 [facility] Comment on above: Performed By: #### C BC ####[facility] [address] [place] [address] MCH Entitic mass (RBC) 27.4 pG Normal 26.0-34.0 [facility] Comment on above: Performed By: #### C BC ####[facility] [address] [place] [address] MCHC mass conc (RBC) 34.5 g/dL Normal 30.5-36.0 [facility] Comment on above: Performed By: #### C BC ####[facility] [address] [place] [address] MCV Entitic volume (RBC) 79.3 fL Low 80.0-100.0 [facility] Comment on above: Performed By: #### C BC ####[facility] [address] [place] [address] Platelet mean volume Entitic volume (Bld) 10.1 fL Normal 9.0-12.7 [facility] Comment on above: Performed By: #### C BC ####[facility] [address] [place] [address] Platelets #/vol (Bld) 242 10*3/uL Normal 150-400 [facility] Comment on above: Performed By: #### C BC ####[facility] [address] [place] [address] RBC #/vol (Bld) 6.10 10*6/uL High 3.90-5.20 [facility] Comment on above: Performed By: #### C BC ####[facility] [address] [place] [address] WBC #/vol (Bld) 11.50 10*3/uL High 3.70-11.00 [facility] Comment on above: Performed By: #### C BC ####[facility] [address] [place] [address] D-Dimer Quantitativeon 07-20 D-Dimer Quantitative 224 ng/mL(FEU) Normal <450 [facility] Comment on above: Result Comment: The D-Dimer [...] specificity of >=38.9%. Performed By: #### L SHCG #### [address] [address] ECG COMPLETEon 07-20-2018 ECG COMPLETE NAME : SUSI JACKSON PID : [id number] : 1970 Gender : Female Race : ORD : [id number] Procedure Date : Jul 20 2018 17:43:40 Edit Date : Jul 22 2018 11:17:53 Diagnosis:SINUS TACHYCARDIA LEFT AXIS DEVIATION SEPTAL INFARCT (CITED ON OR BEFORE 30-NOV-2017) ABNORMAL ECG WHEN COMPARED WITH ECG OF 14-DEC-2017 14:52, QUESTIONABLE CHANGE IN INITIAL FORCES OF ANTERIOR LEADS Confirmed by MD DEVORAH, ALVIN ([id number]) on 07/22/2018 11:17:50 AM Ventricular Rate : 122 BPM Atrial Rate : 122 BPM P-R Interval : 144 ms QRS Duration : 96 ms Q-T Interval : 336 ms QTC Calculation(Bezet) : 478 ms P [place] : 48 degrees R [place] : -61 degrees T [place] : 65 degrees Test Reason : Chest Pain Location : 15 : 3V 323.1 Overread By : MD DEVORAH,ALVIN Edited By : MD FAIRCHILD QARAB Referred By : ZOHREH HARRINGTON Acquired by : [id number], Normal [facility] Glucose Meteron 07-20-2018 Glucose [Mass/Vol] 330 mg/dL High 70-99 [facility] Comment on above: Result Comment: MD Flores OTIFIED Testing performed at [place] [id number] Performed By: #### L SHCG #### [place] [address] HISTORY PHYSICALon 9 HISTORY PHYSICAL HNO ID: [id number] Author: Ghassan Logan Service: General Internal Medicine [...] [facility] counseling by day physicians that we [...] h/o ischemic cardiomyopathy, LAD 80% stenosis on [facility] in December 2017, Cardiology at main campus did not intervene - cardiology did not [...] called for EMS to take her to [place] ED around 7 am. Patient htne was recommended to go to a hospital with PCI capacity but the patient declined [facility]. Of note the patient has had [...] 2017. PCP is Uziel Conteh MD in [place]. Patient lives in [place]. Review of the Systems: (positives in bold) [...] 5. The patient will be transferred to [facility] for assessment of myocardial viability and [...] July 20, 2018 Time: 4:18 PM [facility] Hemoglobin A1con 07-20-2018 Hemoglobin A1c/Hemoglobin.total mass fraction (Bld) 275 mg/dL [facility] Comment on above: Result Comment: eAG: (Estimated average glucose) is a calculated value from HgbA1c and is financial services sales representative of the average blood glucose level in the last 2-3 month period. Performed By: #### H BA1C ####[facility] [place], [place] [phone] Hemoglobin A1c/Hemoglobin.total mass fraction (Bld) 11.2 % High 4.3-5.6 [facility] Comment on above: Result Comment: Amer ican Diabetes Association guidelines indicate that patients with HgbA1c in the range 5.7-6.4% are at increased risk for development of diabetes, and intervention by lifestyle modification may be beneficial. HgbA1c greater or equal to 6.5% is considered diagnostic of diabetes. Performed By: #### H BA1C ####[facility] [place], [place] [phone] Hemogram/Diffon 07-20-2018 Abs. Baso 0.06 thou/cmm Normal 0.00-0.08 [facility] Comment on above: Performed By: #### L SHCG #### [facility] [address] [place] [address] Abs. [place] 0.45 thou/cmm Normal 0.20-1.00 [facility] Comment on above: Performed By: #### L SHCG #### [facility] [address] [place] [address] Abs. Neut (ANC) 7.40 thou/cmm High 3.00-5.67 [facility] Comment on above: Performed By: #### L SHCG #### [facility] [address] [place] [address] Basophils/100 WBC (Bld) 0.6 % Normal [facility] Comment on above: Performed By: #### L SHCG #### [facility] [address] [place] [address] Eosinophils (Bld) [#/Vol] 0.06 thou/cmm Normal 0.00-0.41 [facility] Comment on above: Performed By: #### L SHCG #### [place] [address] Eosinophils/100 WBC (Bld) 0.6 % Normal [facility] Comment on above: Performed By: #### L SHCG #### [facility] [address] [place] [address] Erythrocyte distribution width (RBC) [Ratio] 13.3 % Normal 11.5-15.9 [facility] Comment on above: Performed By: #### L SHCG #### [facility] [address] [place] [address] Hematocrit (Bld) [Volume fraction] 49.9 % High 37.0-47.0 [facility] Comment on above: Performed By: #### L SHCG #### [facility] [address] [place] [address] Hemoglobin (Bld) [Mass/Vol] 17.3 g/dL High 12.0-16.0 [facility] Comment on above: Performed By: #### L SHCG #### [place] [address] Lymphocytes (Bld) [#/Vol] 1.53 thou/cmm Normal 1.50-3.65 [facility] Comment on above: Performed By: #### L SHCG #### [facility] [address] [place], [place] [address] Lymphocytes/100 WBC (Bld) 16.1 % Normal [facility] Comment on above: Performed By: #### L SHCG #### [facility] [address] [place] [address] MCH (RBC) [Entitic mass] 27.7 pg Normal 27.0-31.0 [facility] Comment on above: Performed By: #### L SHCG #### [facility] [address] [place] [address] MCHC (RBC) [Mass/Vol] 34.7 % Normal 32.0-36.0 [facility] Comment on above: Performed By: #### L SHCG #### [facility] [address] [place] [address] MCV (RBC) [Entitic vol] 80.0 fL Low 81.0-99.0 [facility] Comment on above: Performed By: #### L SHCG #### [place] [address] Monocytes/100 WBC (Bld) 4.7 % Normal [facility] Comment on above: Performed By: #### L SHCG #### [place] [address] Platelet mean volume (Bld) [Entitic vol] 9.9 fL Normal 7.1-10.5 [facility] Comment on above: Performed By: #### L SHCG #### [facility] [address] [place], [place] [address] Platelets (Bld) [#/Vol] 209 thou/cmm Normal 150-400 [facility] Comment on above: Performed By: #### L SHCG #### [place] [address] RBC (Bld) [#/Vol] 6.24 mil/cmm High 4.20-5.40 [facility] Comment on above: Performed By: #### L SHCG #### [facility] 1 [place] [id number] Seg Neutrophil 78.0 % Normal [facility] Comment on above: Performed By: #### L SHCG #### [facility] 1 [place], [place] [address] WBC (Bld) [#/Vol] 9.5 thou/cmm Normal 4.8-10.8 [facility] Comment on above: Performed By: #### L SHCG #### [facility] [address] [place] [id number] Ketoneson 07-20-2018 Ketones Ql (U) Negative Normal Negative [facility] Comment on above: Performed By: #### L SHCG #### [facility] [address] [place] [address] MDRD eGFRon 07-20-2018 GFR/1.73 sq M predicted among non-blacks MDRD (S/P/Bld) [Vol rate/Area] mL/min/{1.73_m2} Normal >60mL/min/ 1.73m2 [facility] Comment on above: Result Comment: If t he patient is , multiply the result by 1.210. Performed By: #### L SHCG #### [facility] [address] [place] [id number] NURSING PROGon 07-20-2018 Protein mass conc HNO ID: [id number] Author: Dayanara (Rn) CHAYITO Alexander Service: (none) Author Type: Registered Nurse Type: Nursing Progress Note Filed: 07/20/2018 5:58 PM Note Text: Nursing Progress Note Patient Name: Trenton Jackson Patient [place] [id number] Daily Note: 1550 Patient arrived to unit stable condition, tearful, anxious, c/o chest pain and headache, assessment complete, see NPR, lights dimmed, for help with headache, hospitalist paged, heart sounds regular, bowel sounds present, lung sounds diminished, no edema noted. 174 EKG completed 1800 Patient c/o of headache and nausea medicated per MAR, continues to sob, dinner tray at bedside. HR 120 ST on tele . This note was completed by: Dayanara Alexander RN Normal [facility] Renal Function Panelon 07-20 Albumin mass conc 3.7 g/dL Low 3.9-4.9 [facility] Comment on above: Performed By: #### R FP ####[facility] [address] [place] [address] Anion gap molar conc 8 mmol/L Low 9-18 [facility] Comment on above: Performed By: #### R FP ####[place] [address] Calcium mass conc 8.7 mg/dL Normal 8.5-10.2 [facility] Comment on above: Performed By: #### R FP ####[facility] [address] [place] [address] Chloride molar conc 100 mmol/L Normal 97-105 [facility] Comment on above: Performed By: #### R FP ####[place] [address] CO2 molar conc 25 mmol/L Normal 22-30 [facility] Comment on above: Performed By: #### R FP ####[facility] [address] [place] [address] Creatinine mass conc 0.50 mg/dL Low 0.58-0.96 [facility] Comment on above: Performed By: #### R FP ####[facility] [address] [place] [address] eGFR- Amer. >60 Normal [facility] Comment on above: Performed By: #### R FP ####[facility] [address] [place] [address] GFR/1.73 sq M predicted among non-blacks MDRD vol rate/area (S/P/Bld) mL/min/{1.73_m2} Normal [facility] Comment on above: Result Comment: eGFR (Estimated [...] actual GFR. Performed By: #### R FP ####[facility] [address] [place] [address] Glucose mass conc 247 mg/dL High 74-99 [facility] Comment on above: Result Comment: The [place] [employer] (ADA) provides guidance for cutoff [...] Standards of Medical Care in Diabetes 2016, [place] [employer]. Diabetes Care. 2016.39(Suppl 1). Performed By: #### R FP ####[facility] [address]uv[address]32 [address] Phosphate mass conc 2.9 mg/dL Normal 2.7-4.8 [facility] Comment on above: Performed By: #### R FP ####[facility] Djq[address]cyvbu5999 [address] Potassium molar conc 4.2 mmol/L Normal 3.5-4.9 [facility] Comment on above: Performed By: #### R FP ####[facility] [address] [place] [address] Result Comment: Test ing performed on an [employer] i-STAT. Performed By: #### L SHCG #### [facility] [address] [place] [address] Sodium molar conc 133 mmol/L Low 136-144 [facility] Comment on above: Performed By: #### R FP ####[facility] [address] [place] [phone] Urea nitrogen mass conc 5 mg/dL Low 7-21 M [facility] Comment on above: Performed By: #### R FP ####[facility] Asulwbwcal8453 [address]721[address] Troponin Ion 07-20-2018 Troponin I.cardiac [Mass/Vol] ng/mL Normal <=0.07 [facility] Comment on above: Performed By: #### L SHCG #### [facility] 1 [place], [place] [address] Troponin Ton 07-20-2018 Troponin T.cardiac mass conc ug/L Normal 0.000-0.02 9 [facility] Comment on above: Performed By: #### T NT ####[facility] [address] [place] [phone] CT ABDOMEN AND PELVIS WITH C ONTRASTon 06-26-2018 CT ABDOMEN AND PELVIS WITH CONTRAST Performed at [facility] APPROVED BY: Nixon Cortez MD EXAM TITLE: [...] Multiple chronic findings as detailed above. Normal [facility] Comprehensive Panelon 2018 Albumin [Mass/Vol] 3.9 g/dL Normal 3.4-5.0 [facility] Comment on above: Performed By: #### L ACET #### [place] [address] ALP [Catalytic activity/Vol] 118 U/L High 46-116 [facility] Comment on above: Performed By: #### L ACET #### [place] [address] ALT-SGPT Blood 18 U/L Normal 14-63 [facility] Comment on above: Performed By: #### L ACET #### [address] [address] Anion gap [Moles/Vol] 18 mmol/L Normal 8-20 [facility] Comment on above: Performed By: #### L ACET #### [facility] 1 [place], [place] [address] AST-SGOT Blood 19 U/L Normal 15-37 [facility] Comment on above: Performed By: #### L ACET #### [facility] 1 [place], [place] [address] Bilirubin Ql (U) 1.5 mg/dL High 0.2-1.0 [facility] Comment on above: Performed By: #### L ACET #### [facility] [address] [place] [address] Calcium [Mass/Vol] 9.4 mg/dL Normal 8.5-10.1 [facility] Comment on above: Performed By: #### L ACET #### [facility] [address] [place] [address] Chloride [Moles/Vol] 93 mmol/L Low 98-107 [facility] Comment on above: Performed By: #### L ACET #### [facility] [address] [place] [address] CO2 Blood 25 mEq/L Normal 21-32 [facility] Comment on above: Performed By: #### L ACET #### [facility] [address] [place] [address] Creatinine [Mass/Vol] 0.64 mg/dL Normal 0.51-0.95 [facility] Comment on above: Performed By: #### L ACET #### [facility] 1 [place], [place] [address] Glucose [Mass/Vol] 443 mg/dL Critically high 70-99 [facility] Comment on above: Performed By: #### L ACET #### [facility] 1 [place], [place] [address] Potassium [Moles/Vol] 4.0 mmol/L Normal 3.5-5.1 [facility] Comment on above: Performed By: #### L ACET #### [place] [address] Protein [Mass/Vol] 8.0 g/dL Normal 6.4-8.2 [facility] Comment on above: Performed By: #### L ACET #### [facility] [address] [place] [address] Sodium [Moles/Vol] 132 mmol/L Low 136-145 [facility] Comment on above: Performed By: #### L ACET #### [facility] [address] [place] [address] Urea nitrogen [Mass/Vol] 8 mg/dL Normal 7-25 [facility] Comment on above: Performed By: #### L ACET #### [facility] [address] [place] [address] Urea nitrogen/Creatinine [Mass ratio] 13 mg/mg Normal 10-20 [facility] Comment on above: Performed By: #### L ACET #### [place] [address] Hemogram/Manual Diffon 06-26 Abs. Baso 0.00 thou/cmm Normal 0.00-0.08 [facility] Comment on above: Performed By: #### L ACET #### [place] [address] Abs. Eosin 0.00 thou/cmm Normal 0.00-0.41 [facility] Comment on above: Performed By: #### L ACET #### [place] [address] Abs. Lymph 2.58 thou/cmm Normal 1.50-3.65 [facility] Comment on above: Performed By: #### L ACET #### [place] [address] Abs. [place] 0.78 thou/cmm Normal 0.20-1.00 [facility] Comment on above: Performed By: #### L ACET #### [place] [address] Abs. Neut (ANC) 7.84 thou/cmm High 3.00-5.67 [facility] Comment on above: Performed By: #### L ACET #### [place] [address] Basophil 0.0 % Normal [facility] Comment on above: Performed By: #### L ACET #### [facility] [address] [place] [address] Eosinophil 0.0 % Normal [facility] Comment on above: Performed By: #### L ACET #### [facility] [address] [place] [address] Lymphocyte 23.0 % Normal [facility] Comment on above: Performed By: #### L ACET #### [facility] [address] [place] [address] Monocyte 7.0 % Normal [facility] Comment on above: Performed By: #### L ACET #### [facility] [address] [place] [address] Platelets (Bld) [#/Vol] Normal Normal [facility] Comment on above: Performed By: #### L ACET #### [place] [address] RBC morphology finding Nom (Bld) Normal Normal [facility] Comment on above: Performed By: #### L ACET #### [place] [address] Seg Neutrophil 70.0 % Normal [facility] Comment on above: Performed By: #### L ACET #### [place] [address] Diff Type Manual Diff Normal [facility] Comment on above: Performed By: #### L ACET #### [place] [address] Erythrocyte distribution width (RBC) [Ratio] 13.1 % Normal 11.5-15.9 [facility] Comment on above: Performed By: #### L ACET #### [place] [address] Hematocrit (Bld) [Volume fraction] 49.0 % High 37.0-47.0 [facility] Comment on above: Performed By: #### L ACET #### [place] [address] Hemoglobin (Bld) [Mass/Vol] 16.9 g/dL High 12.0-16.0 [facility] Comment on above: Performed By: #### L ACET #### [facility] [address] [place] [address] MCH (RBC) [Entitic mass] 27.6 pg Normal 27.0-31.0 [facility] Comment on above: Performed By: #### L ACET #### [facility] 1 [place], [place] [address] MCHC (RBC) [Mass/Vol] 34.5 % Normal 32.0-36.0 [facility] Comment on above: Performed By: #### L ACET #### [facility] [address] [place] [address] MCV (RBC) [Entitic vol] 79.9 fl Low 81.0-99.0 [facility] Comment on above: Performed By: #### L ACET #### [facility] [address] [place] [address] Platelet mean volume (Bld) [Entitic vol] 9.9 fl Normal 7.1-10.5 [facility] Comment on above: Performed By: #### L ACET #### [facility] [address] [place] [address] Platelets (Bld) [#/Vol] 276 thou/cmm Normal 150-400 [facility] Comment on above: Performed By: #### L ACET #### [facility] [address] [place] [address] RBC (Bld) [#/Vol] 6.13 mil/cmm High 4.20-5.40 [facility] Comment on above: Performed By: #### L ACET #### [facility] [address] [place] [address] WBC (Bld) [#/Vol] 11.2 thou/cmm High 4.8-10.8 [facility] Comment on above: Performed By: #### L ACET #### [facility] [address] [place] [address] Ketoneson 06-26-2018 Ketones Ql (U) Negative Normal Negative [facility] Comment on above: Performed By: #### L SHCG #### [facility] [address] [place] [address] Lipase Bloodon 06-26-2018 Lipase Blood 161 U/L Normal 73-393 [facility] Comment on above: Performed By: #### L ACET #### [place] [address] MDRD eGFRon 06-26-2018 GFR/1.73 sq M predicted among non-blacks MDRD (S/P/Bld) [Vol rate/Area] mL/min/{1.73_m2} Normal >60mL/min/ 1.73m2 [facility] Comment on above: Result Comment: If t he patient is , multiply the result by 1.210. Performed By: #### L ACET #### [place] [address] Macroscopic Urinalysison Appearance (U) CLEAR Normal [facility] Comment on above: Performed By: #### L ACET #### [place] [address] Bilirubin Urine Negative Normal Negative [facility] Comment on above: Performed By: #### L ACET #### [place] [address] Color (U) YELLOW Normal [facility] Comment on above: Performed By: #### L ACET #### [place] [address] Glucose Ql (U) 3+ Abnormal Negative [facility] Comment on above: Performed By: #### L ACET #### [place] [address] Hemoglobin,Urine Negative Normal Negative [facility] Comment on above: Performed By: #### L ACET #### [place] [address] Ketone Urine Negative Normal Negative [facility] Comment on above: Performed By: #### L ACET #### [place] [address] Leukocytes Esterase Negative Normal Negative [facility] Comment on above: Performed By: #### L ACET #### [place] [address] Nitrites Urine Negative Normal Negative [facility] Comment on above: Performed By: #### L ACET #### [facility] [address] [place] [address] pH (U) 6.0 [pH] Normal 5.0-8.0 [facility] Comment on above: Performed By: #### L ACET #### [facility] [address] [place] [address] Protein (U) [Mass/Vol] Negative Normal Negative [facility] Comment on above: Performed By: #### L ACET #### [facility] [address] [place] [address] Specific Metter, Ur 1.015 Normal 1.005-1 .03 0 [facility] Comment on above: Performed By: #### L ACET #### [facility] [address] [place] [address] Urobilinogen,Ur 0.2 EU/dL Normal 0.0-1.0 [facility] Comment on above: Performed By: #### L ACET #### [facility] [address] [place] [address] CASE MANAGEMon 06-12-2018 CASE MANAGEM HNO ID: [id number] Author: Rey Markham (Sw) Service: Care Management Author Type: Edging Machine Feeder Type: Care Mgt Progress Note Filed: 06/12/2018 [...] Discharge Pt. Will discharge home w/basic needs. SW will remain available should any further discharge planning needs arise. SIGNATURE: Rey Markham LACROSSE COACH, [employer], [facility]-SW PATIENT NAME: Trenton Jackson DATE: June 12, 2018 TIME: 3:21 PM PAGER/CONTACT #: Normal [facility] CBCon 06-12-2018 Erythrocyte distribution width Ratio (RBC) 13.1 % Normal 11.5-15.0 [facility] Comment on above: Performed By: #### C BC, CMP, MG1 ####[facility] [address] [place] [address] Hematocrit Volume Fraction (Bld) 39.0 % Normal 36.0-46.0 [facility] Comment on above: Performed By: #### C BC, CMP, MG1 ####[facility] [address] [place] [address] Hemoglobin mass conc (Bld) 13.0 g/dL Normal 11.5-15.5 [facility] Comment on above: Performed By: #### C BC, CMP, MG1 ####[facility] [address] [place] [address] MCH Entitic mass (RBC) 27.5 pG Normal 26.0-34.0 [facility] Comment on above: Performed By: #### C BC, CMP, MG1 ####[facility] [address] [place] [address] MCHC mass conc (RBC) 33.3 g/dL Normal 30.5-36.0 [facility] Comment on above: Performed By: #### C BC, CMP, MG1 ####[facility] [address] [place] [address] MCV Entitic volume (RBC) 82.5 fL Normal 80.0-100.0 [facility] Comment on above: Performed By: #### C BC, CMP, MG1 ####[facility] [address] [place] [address] Platelet mean volume Entitic volume (Bld) 9.6 fL Normal 9.0-12.7 [facility] Comment on above: Performed By: #### C BC, CMP, MG1 ####[facility] [address] [place] [phone] Platelets #/vol (Bld) 202 10*3/uL Normal 150-400 [facility] Comment on above: Performed By: #### C BC, CMP, MG1 ####[facility] [address] [place] [phone] RBC #/vol (Bld) 4.73 10*6/uL Normal 3.90-5.20 [facility] Comment on above: Performed By: #### C BC, CMP, MG1 ####[facility] C[address]ip2376 [address] WBC #/vol (Bld) 9.75 10*3/uL Normal 3.70-11.00 [facility] Comment on above: Performed By: #### C BC, CMP, MG1 ####[facility] [address] [place] [phone] CONSULT PROGon 06-12-2018 Protein mass conc HNO ID: [id number] Author: Jasvir Kumar Service: Gastroenterology Author Type: [...] ~6 weeks. 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 Patient seen [...] rebound tenderness. ? EXTREMITIES: No edema to ALOK lower extremities MEDICATIONS: Current hospital medications: traMADol [...] Coags, BMP, Mg, Phos Recent Labs 06/12/1852106/11/18 0806/10/18 05 WBC 9.75 13.52* 10.93 HB 13.0 15.4 [...] 80 93 76 TBILI 0.5 0.8 0.6 MISC LABS: Component Latest Ref Rng AND [...] colon Bx: unavailable ? SIGNATURE: Prudence Edwards, PEDIATRICIAN/MEDICAL DOCTOR DATE: June 12, 2018 TIME: 10:40 AM Normal [facility] Comp Metabolic Panelon 06-12 Albumin mass conc 3.0 g/dL Low 3.9-4.9 [facility] Comment on above: Performed By: #### C BC, CMP, MG1 ####[facility] [address] [place] [address] ALP enzyme act/vol 80 U/L Normal 34-123 [facility] Comment on above: Performed By: #### C BC, CMP, MG1 ####[facility] [address] [place] [address] ALT enzyme act/vol 17 U/L Normal 7-38 [facility] Comment on above: Performed By: #### C BC, CMP, MG1 ####[facility] [address] [place] [address] Anion gap molar conc 8 mmol/L Low 9-18 [facility] Comment on above: Performed By: #### C BC, CMP, MG1 ####[facility] [address] [place] [address] AST enzyme act/vol 25 U/L Normal 13-35 [facility] Comment on above: Performed By: #### C BC, CMP, MG1 ####[facility] [address] [place] [address] Bilirubin mass conc 0.5 mg/dL Normal 0.2-1.3 [facility] Comment on above: Performed By: #### C BC, CMP, MG1 ####[facility] [address] [place] [address] Calcium mass conc 9.0 mg/dL Normal 8.5-10.2 [facility] Comment on above: Performed By: #### C BC, CMP, MG1 ####[facility] [address] [place] [address] Chloride molar conc 101 mmol/L Normal 97-105 [facility] Comment on above: Performed By: #### C BC, CMP, MG1 ####[facility] [address] [place] [address] CO2 molar conc 28 mmol/L Normal 22-30 [facility] Comment on above: Performed By: #### C BC, CMP, MG1 ####[facility] [address] [place] [phone] Creatinine mass conc 0.64 mg/dL Normal 0.58-0.96 [facility] Comment on above: Performed By: #### C DELIA WILSON, MG1 ####[facility] [address] [place] [phone] eGFR- Amer. >60 Normal [facility] Comment on above: Performed By: #### C DELIA WILSON, MG1 ####[facility] R[address] GFR/1.73 sq M predicted among non-blacks MDRD vol rate/area (S/P/Bld) mL/min/{1.73_m2} Normal [facility] Comment on above: Result Comment: eGFR (Estimated [...] Performed By: #### C DELIA WILSON, MG1 ####[facility] [address]ievjraqo3136 [address] Glucose mass conc 162 mg/dL High 74-99 [facility] Comment on above: Result Comment: The [place] [employer] (ADA) provides guidance for cutoff [...] Standards of Medical Care in Diabetes 2016, [place] [employer]. Diabetes Care. 2016.39(Suppl 1). Performed By: #### C KATIE CMP, MG1 ####[facility] [address] [place] [address] Potassium molar conc 4.2 mmol/L Normal 3.7-5.1 [facility] Comment on above: Performed By: #### C BC CMP, MG1 ####[facility] [address] [place] [address] Protein mass conc 5.6 g/dL Low 6.3-8.0 [facility] Comment on above: Performed By: #### C KATIE CMP, MG1 ####[facility] [address] [place] [address] Sodium molar conc 137 mmol/L Normal 136-144 [facility] Comment on above: Performed By: #### C KATIE CMP, MG1 ####[facility] [address] [place] [address] Urea nitrogen mass conc 5 mg/dL Low 7-21 M [facility] Comment on above: Performed By: #### C KATIE CMP, MG1 ####[facility] [address] [place] [address] Magnesiumon 06-12-2018 Magnesium mass conc 1.6 mg/dL Low 1.7-2.3 [facility] Comment on above: Performed By: #### C KATIE CMP, MG1 ####[facility] [address] [place] [address] NURSING PROGon 06-12-2018 Protein mass conc HNO ID: [id number] Author: Bina (Rn) CHAYITO Montiel Service: (none) Author Type: Registered Nurse Type: Nursing Progress Note Filed: 06/12/2018 6:50 AM Note Text: Nursing Progress Note Patient Name: Trenton Jackson Patient Location: [id number] Daily Note: Paged the hospital list regarding patient's magnesium level this AM. This note was completed by: Bina Montiel RN Normal [facility] CBCon 06-11-2018 Erythrocyte distribution width Ratio (RBC) 13.4 % Normal 11.5-15.0 [facility] Comment on above: Performed By: #### C BC CMP, MG1 ####[facility] [address] [place] [address] Hematocrit Volume Fraction (Bld) 45.8 % Normal 36.0-46.0 [facility] Comment on above: Performed By: #### C BC CMP, MG1 ####[facility] [address]16[address] [place] [address] Hemoglobin mass conc (Bld) 15.4 g/dL Normal 11.5-15.5 [facility] Comment on above: Performed By: #### C KATIE CMP, MG1 ####[facility] [address] [place] [address] MCH Entitic mass (RBC) 27.5 pG Normal 26.0-34.0 [facility] Comment on above: Performed By: #### C BC CMP, MG1 ####[facility] [address] [place] [address] MCHC mass conc (RBC) 33.6 g/dL Normal 30.5-36.0 [facility] Comment on above: Performed By: #### C BC CMP, MG1 ####[facility] [address] [place] [address] MCV Entitic volume (RBC) 81.8 fL Normal 80.0-100.0 [facility] Comment on above: Performed By: #### C BC CMP, MG1 ####[facility] [address] [place] [address] Platelet mean volume Entitic volume (Bld) 10.0 fL Normal 9.0-12.7 [facility] Comment on above: Performed By: #### C BC CMP, MG1 ####[facility] [address] [place] [phone] Platelets #/vol (Bld) 260 10*3/uL Normal 150-400 [facility] Comment on above: Performed By: #### Gideon BC CMP, MG1 ####[facility] [address] [place] [phone] RBC #/vol (Bld) 5.60 10*6/uL High 3.90-5.20 [facility] Comment on above: Performed By: #### C BC, CMP, MG1 ####[facility] [address] [place] [phone] WBC #/vol (Bld) 13.52 10*3/uL High 3.70-11.00 [facility] Comment on above: Performed By: #### C BC, CMP, MG1 ####[facility] [address] [place] [phone] CONSULT PROGon 06-11-2018 Protein mass conc HNO ID: [id number] Author: Jasvir Kumar Service: Gastroenterology Author Type: [...] or rebound tenderness. EXTREMITIES: No edema to ALOK lower extremities MEDICATIONS: Current hospital medications: bisacodyl [...] descending colon Bx: unavailable SIGNATURE: Prudence Edwards, PEDIATRICIAN/MEDICAL DOCTOR DATE: June 11, 2018 TIME: 10:11 AM Normal [facility] Comp Metabolic Panelon 06-11 Albumin mass conc 3.4 g/dL Low 3.9-4.9 [facility] Comment on above: Performed By: #### C BC, CMP, MG1 ####[facility] [address] [place] [address] ALP enzyme act/vol 93 U/L Normal 34-123 [facility] Comment on above: Performed By: #### C BC, CMP, MG1 ####[facility] [address] [place] [address] ALT enzyme act/vol 18 U/L Normal 7-38 [facility] Comment on above: Performed By: #### C BC, CMP, MG1 ####[facility] [address] [place] [address] Anion gap molar conc 11 mmol/L Normal 9-18 [facility] Comment on above: Performed By: #### C BC, CMP, MG1 ####[facility] [address] [place] [address] AST enzyme act/vol 31 U/L Normal 13-35 [facility] Comment on above: Performed By: #### C BC, CMP, MG1 ####[facility] [address] [place] [address] Bilirubin mass conc 0.8 mg/dL Normal 0.2-1.3 [facility] Comment on above: Performed By: #### C BC, CMP, MG1 ####[facility] [address] [place] [address] Calcium mass conc 9.0 mg/dL Normal 8.5-10.2 [facility] Comment on above: Performed By: #### C BC, CMP, MG1 ####[facility] [address] [place] [address] Chloride molar conc 101 mmol/L Normal 97-105 [facility] Comment on above: Performed By: #### C BC, CMP, MG1 ####[facility] [address] [place] [address] CO2 molar conc 25 mmol/L Normal 22-30 [facility] Comment on above: Performed By: #### C BC, CMP, MG1 ####[facility] [address] [place] [address] Creatinine mass conc 0.61 mg/dL Normal 0.58-0.96 [facility] Comment on above: Performed By: #### C BC, CMP, MG1 ####[facility] [address] [place] [address] eGFR- Amer. >60 Normal [facility] Comment on above: Performed By: #### C BC CMP, MG1 ####[facility] [address] [place] [address] GFR/1.73 sq M predicted among non-blacks MDRD vol rate/area (S/P/Bld) mL/min/{1.73_m2} Normal [facility] Comment on above: Result Comment: eGFR (Estimated [...] reflect actual GFR. Performed By: #### C BC, CMP, MG1 ####[facility] [address]rzn[address] [place] [address] Glucose mass conc 123 mg/dL High 74-99 [facility] Comment on above: Result Comment: The [place] [employer] (ADA) provides guidance for cutoff [...] Standards of Medical Care in Diabetes 2016, [place] [employer]. Diabetes Care. 2016.39(Suppl 1). Performed By: #### C BC CMP, MG1 ####[facility] [address] [place] [address] Potassium molar conc 3.9 mmol/L Normal 3.7-5.1 [facility] Comment on above: Performed By: #### C BC CMP, MG1 ####[facility] [address] [place] [address] Protein mass conc 6.5 g/dL Normal 6.3-8.0 [facility] Comment on above: Performed By: #### C BC CMP, MG1 ####[facility] [address] [place] [address] Sodium molar conc 137 mmol/L Normal 136-144 [facility] Comment on above: Performed By: #### C BC, CMP, MG1 ####[facility] [address] [place] [address] Urea nitrogen mass conc 5 mg/dL Low 7-21 [facility] Comment on above: Performed By: #### C BC CMP, MG1 ####[facility] [address] [place] [address] Magnesiumon 06-11-2018 Magnesium mass conc 1.8 mg/dL Normal 1.7-2.3 [facility] Comment on above: Performed By: #### C BC, CMP, MG1 ####[facility] [address] [place] [address] PROGRESSon 06-11-2018 Protein mass conc HNO ID: [id number] Author: Fredo Morrow Service: Hospital Medicine Author Type: Physician Type: Progress Notes Filed: 06/11/2018 1:58 PM Note Text: SERVICE DATE: 06/11/2018 SERVICE TIME: 1:58 PM HOSPITAL MEDICINE PROGRESS NOTE NIGHT AND WEEKEND COVERAGE: Nights: Please contact pager [phone]. HPI Patient is a 47 year old [...] hyperglycemia, with long-term current use of insulin ([facility]) 06/08/2018 - Present Current Assessment AND [...] dose Chronic systolic CHF (congestive heart failure) ([facility]) 06/08/2018 - Present Current Assessment AND [...] 1615 vte non-pharmacologic prophylaxis - none indicated (pa,ri) 06/08/18 1615 activity - mobilize patient ([place]) VTE Prophylaxis: VTE prophylaxis appropriate Plan of care discussed with: Patient SIGNATURE: Fredo Morrow MD PATIENT NAME: Trenton Jackson DATE: June 11, 2018 TIME: 1:58 PM PAGER/CONTACT #: [phone] Normal [facility] CBCon 06-10-2018 Erythrocyte distribution width Ratio (RBC) 13.1 % Normal 11.5-15.0 [facility] Comment on above: Performed By: #### C BC, CMP, MG1 ####[facility] [address] [place] [phone] Hematocrit Volume Fraction (Bld) 41.1 % Normal 36.0-46.0 [facility] Comment on above: Performed By: #### C BC, CMP, MG1 ####[facility] Pon[address]tlukl[address]19 [address] Hemoglobin mass conc (Bld) 13.4 g/dL Normal 11.5-15.5 [facility] Comment on above: Performed By: #### C BC, CMP, MG1 ####[facility] Kusjxzlcim5324 [address]5[address] MCH Entitic mass (RBC) 26.9 pG Normal 26.0-34.0 [facility] Comment on above: Performed By: #### C BC, CMP, MG1 ####[facility] [address] [place] [address] MCHC mass conc (RBC) 32.6 g/dL Normal 30.5-36.0 [facility] Comment on above: Performed By: #### C BC, CMP, MG1 ####[facility] [address] [place] [address] MCV Entitic volume (RBC) 82.4 fL Normal 80.0-100.0 [facility] Comment on above: Performed By: #### C BC, CMP, MG1 ####[facility] [address] [place] [address] Platelet mean volume Entitic volume (Bld) 10.0 fL Normal 9.0-12.7 [facility] Comment on above: Performed By: #### C BC, CMP, MG1 ####[facility] Fcfuaejzvi4555 [address] Platelets #/vol (Bld) 202 10*3/uL Normal 150-400 [facility] Comment on above: Performed By: #### C BC, CMP, MG1 ####[facility] [address] [place] [address] RBC #/vol (Bld) 4.99 10*6/uL Normal 3.90-5.20 [facility] Comment on above: Performed By: #### C BC, CMP, MG1 ####[facility] [address]1113 [place] [address] WBC #/vol (Bld) 10.93 10*3/uL Normal 3.70-11.00 [facility] Comment on above: Performed By: #### C BC, CMP, MG1 ####[facility] [address] [place] [phone] CONSULT PROGon 06-10-2018 Protein mass conc HNO ID: [id number] Author: Jasvir Kumar Service: Gastroenterology Author Type: [...] or rebound tenderness. EXTREMITIES: No edema to ALOK lower extremities MEDICATIONS: Current hospital medications: bisacodyl [...] Coags, BMP, Mg, Phos Recent Labs 06/10/18 0506/09/18 1101 06/09/18 0619 06/08/18 1646 06/08/18 1040 [...] never undergone endoscopic evaluation SIGNATURE: Griselda Chaparro APRN.CAR DELIVERER DATE: June 10, 2018 TIME: 12:53 PM Normal [facility] Comp Metabolic Panelon 06-10 Albumin mass conc 3.0 g/dL Low 3.9-4.9 [facility] Comment on above: Performed By: #### C BC, CMP, MG1 ####[facility] [address] [place] [address] ALP enzyme act/vol 76 U/L Normal 34-123 [facility] Comment on above: Performed By: #### C BC, CMP, MG1 ####[facility] [address] [place] [address] ALT enzyme act/vol 11 U/L Normal 7-38 [facility] Comment on above: Performed By: #### C BC, CMP, MG1 ####[facility] [address] [place] [address] Anion gap molar conc 8 mmol/L Low 9-18 [facility] Comment on above: Performed By: #### C BC, CMP, MG1 ####[facility] [address] [place] [address] AST enzyme act/vol 16 U/L Normal 13-35 [facility] Comment on above: Performed By: #### C BC, CMP, MG1 ####[facility] [address] [place] [address] Bilirubin mass conc 0.6 mg/dL Normal 0.2-1.3 [facility] Comment on above: Performed By: #### C BC, CMP, MG1 ####[facility] [address] [place] [address] Calcium mass conc 8.8 mg/dL Normal 8.5-10.2 [facility] Comment on above: Performed By: #### C BC, CMP, MG1 ####[facility] [address] [place] [address] Chloride molar conc 102 mmol/L Normal 97-105 [facility] Comment on above: Performed By: #### C BC, CMP, MG1 ####[facility] [address] [place] [address] CO2 molar conc 28 mmol/L Normal 22-30 [facility] Comment on above: Performed By: #### C BC, CMP, MG1 ####[facility] [address] [place] [phone] Creatinine mass conc 0.62 mg/dL Normal 0.58-0.96 [facility] Comment on above: Performed By: #### C DELIA WILSON, MG1 ####[facility] Propxoxrqx8203 [phone] eGFR- Amer. >60 Normal [facility] Comment on above: Performed By: #### C DELIA WILSON, MG1 ####[facility] [address]zzedo[address] GFR/1.73 sq M predicted among non-blacks MDRD vol rate/area (S/P/Bld) mL/min/{1.73_m2} Normal [facility] Comment on above: Result Comment: eGFR (Estimated [...] Performed By: #### C DELIA WILSON, MG1 ####[facility] Wiq[address]qikuz7001 [address] Glucose mass conc 142 mg/dL High 74-99 [facility] Comment on above: Result Comment: The [place] [employer] (ADA) provides guidance for cutoff [...] Standards of Medical Care in Diabetes 2016, [place] [employer]. Diabetes Care. 2016.39(Suppl 1). Performed By: #### C BC, CMP, MG1 ####[facility] Fly[address]sp[address] [place] [address] Potassium molar conc 3.4 mmol/L Low 3.7-5.1 [facility] Comment on above: Performed By: #### C BC, CMP, MG1 ####[facility] [address] [place] [address] Protein mass conc 5.5 g/dL Low 6.3-8.0 [facility] Comment on above: Performed By: #### C BC, CMP, MG1 ####[facility] [address]24[address] [place] [address] Sodium molar conc 138 mmol/L Normal 136-144 [facility] Comment on above: Performed By: #### C BC, CMP, MG1 ####[facility] [address]zj[address] [place] [address] Urea nitrogen mass conc 6 mg/dL Low 7-21 M [facility] Comment on above: Performed By: #### C BC, CMP, MG1 ####[facility] [address]ps[address] [place] [address] Magnesiumon 06-10-2018 Magnesium mass conc 1.8 mg/dL Normal 1.7-2.3 [facility] Comment on above: Performed By: #### C BC, CMP, MG1 ####[facility] X[address] [place] [address] PROGRESSon 06-10-2018 Protein mass conc HNO ID: [id number] Author: Fredo Morrow Service: Hospital Medicine Author Type: Physician Type: Progress Notes Filed: 06/10/2018 4:22 PM Note Text: SERVICE DATE: 06/10/2018 SERVICE TIME: 4:22 PM HOSPITAL MEDICINE PROGRESS NOTE NIGHT AND WEEKEND COVERAGE: Nights: Please contact pager [phone]. HPI Patient is a 47 year old [...] hyperglycemia, with long-term current use of insulin ([facility]) 06/08/2018 - Present Current Assessment AND [...] dose Chronic systolic CHF (congestive heart failure) ([facility]) 06/08/2018 - Present Current Assessment AND [...] ([place]) 06/08/18 1615 activity - mobilize patient ([place]) VTE Prophylaxis: VTE prophylaxis appropriate Plan of care discussed with: Patient SIGNATURE: Fredo Morrow MD PATIENT NAME: Trenton Jackson DATE: June 10, 2018 TIME: 4:22 PM PAGER/CONTACT #: [phone] [facility] CASE MGT INIT [place] 2018 CASE MGT INIT GAVIN HNO ID: [id number] Author: Donna AgudeloRn) CHAYITO Gupta Service: Case Management Author Type: Registered Nurse Type: Care Mgt Initial Assessment Filed: 06/09/2018 4:47 PM Note Text: CARE MANAGEMENT: ASSESSMENT AND DISCHARGE PLAN SERVICE DATE: 06/09/2018 SERVICE TIME: 4:45 PM PRIMARY CARE PHYSICIAN: Uziel Conteh MD - Confirmed with the patient ADMISSION STATUS: Observation Needs Prior to Discharge: To Be Determined 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 No Advance Directive: Current Advance Directive: None Election Supervisor Attempted to Assist with AD Completion: Yes [...] Glucometer Has the Patient Been in a Nursing Home Facility in the Past 30 days? No SOCIAL: Living Arrangement: Home Lives With: Spouse Financial Resources: N/A Primary Contact: Extended Emergency Contact Information Primary Emergency Contact: Curry Jackson Jr Address: [address] [place] [address] [facility] Mobile Relation: Spouse Secondary Emergency Contact: Rebecca Dueñas Address: [place] [address] [facility] Relation: Mother Supportive: Yes Other Important Patient [...] 0 I feel financially burdened by my qzp-zi-aeattc expenses for my prescription medication: Disagree completely [...] patient. 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 Lives with her . CM department will continue to follow for DC needs. SIGNATURE: Donna Gupta PATIENT NAME: Trenton Jackson DATE: June 09, 2018 TIME: 4:45 PM PAGER/CONTACT #: [phone] Normal [facility] CBCon 06-09-2018 Erythrocyte distribution width Ratio (RBC) 13.0 % Normal 11.5-15.0 [facility] Comment on above: Performed By: #### H STNT #### [facility] [address] [facility] [phone] Hematocrit Volume Fraction (Bld) 42.5 % Normal 36.0-46.0 [facility] Comment on above: Performed By: #### H STNT #### [facility] [address] [facility] [phone] Hemoglobin mass conc (Bld) 14.0 g/dL Normal 11.5-15.5 [facility] Comment on above: Performed By: #### H STNT #### [facility] [address] [place] [address] MCH Entitic mass (RBC) 27.0 pG Normal 26.0-34.0 [facility] Comment on above: Performed By: #### H STNT #### [facility] [address] [place] [address] MCHC mass conc (RBC) 32.9 g/dL Normal 30.5-36.0 [facility] Comment on above: Performed By: #### H STNT #### [facility] [address] [place] [address] MCV Entitic volume (RBC) 82.0 fL Normal 80.0-100.0 [facility] Comment on above: Performed By: #### H STNT #### [facility] [address] [place] [address] Platelet mean volume Entitic volume (Bld) 9.6 fL Normal 9.0-12.7 [facility] Comment on above: Performed By: #### H STNT #### [facility] [address] [place] [address] Platelets #/vol (Bld) 217 10*3/uL Normal 150-400 [facility] Comment on above: Performed By: #### H STNT #### [facility] [address] [place] [address] RBC #/vol (Bld) 5.18 10*6/uL Normal 3.90-5.20 [facility] Comment on above: Performed By: #### H STNT #### [facility] [address] [place] [address] WBC #/vol (Bld) 8.16 10*3/uL Normal 3.70-11.00 [facility] Comment on above: Performed By: #### H STNT #### [facility] [address] [place] [address] CONSULTon 06-09-2018 CONSULT HNO ID: [id number] Author: Jasvir Kumar Service: Gastroenterology Author Type: [...] - - - 18 - - - 06/08/182038 124/78 36.7 ?C (98.1 ?F) Oral 93 [...] 09, 2018 TIME: 8:21 AM PAGER: Normal [facility] Comp Metabolic Panelon 06-09 Albumin mass conc 3.5 g/dL Low 3.9-4.9 [facility] Comment on above: Performed By: #### C MP ####[facility] [address] [place] [address] ALP enzyme act/vol 83 U/L Normal 34-123 [facility] Comment on above: Performed By: #### C MP ####[facility] [address] [place] [address] ALT enzyme act/vol 12 U/L Normal 7-38 [facility] Comment on above: Performed By: #### C MP ####[facility] [address] [place] [address] Anion gap molar conc 14 mmol/L Normal 9-18 [facility] Comment on above: Performed By: #### C MP ####[place] [address] AST enzyme act/vol 14 U/L Normal 13-35 [facility] Comment on above: Performed By: #### C MP ####[facility] [address] [place] [address] Bilirubin mass conc 0.7 mg/dL Normal 0.2-1.3 [facility] Comment on above: Performed By: #### C MP ####[place] [address] Calcium mass conc 8.6 mg/dL Normal 8.5-10.2 [facility] Comment on above: Performed By: #### C MP ####[facility] [address] [place], [place] [address] Chloride molar conc 98 mmol/L Normal 97-105 [facility] Comment on above: Performed By: #### C MP ####[facility] [address] [place] [address] CO2 molar conc 22 mmol/L Normal 22-30 [facility] Comment on above: Performed By: #### C MP ####[facility] [address]eq[address]ydsn[address] [place] [address] Creatinine mass conc 0.60 mg/dL Normal 0.58-0.96 [facility] Comment on above: Performed By: #### C MP ####[facility] [address] [place] [address] eGFR- Amer. >60 Normal [facility] Comment on above: Performed By: #### C MP ####[facility] Qsgqyfzkhd7355 [place] [address] GFR/1.73 sq M predicted among non-blacks MDRD vol rate/area (S/P/Bld) mL/min/{1.73_m2} Normal [facility] Comment on above: Result Comment: eGFR (Estimated [...] actual GFR. Performed By: #### C MP ####[facility] [address]zy4[address] [place] [address] Glucose mass conc 313 mg/dL High 74-99 [facility] Comment on above: Result Comment: The [place] [employer] (ADA) provides guidance for cutoff [...] Standards of Medical Care in Diabetes 2016, [place] [employer]. Diabetes Care. 2016.39(Suppl 1). Performed By: #### C MP ####[facility] [address]zn[address] [place] [address] Potassium molar conc 3.6 mmol/L Low 3.7-5.1 [facility] Comment on above: Performed By: #### C MP ####[facility] [address] [place] [address] Protein mass conc 5.6 g/dL Low 6.3-8.0 [facility] Comment on above: Performed By: #### C MP ####[facility] [address] [place] [address] Sodium molar conc 134 mmol/L Low 136-144 [facility] Comment on above: Performed By: #### C MP ####[facility] [address] [place] [address] Urea nitrogen mass conc 5 mg/dL Low 7-21 M [facility] Comment on above: Performed By: #### C MP ####[facility] [address] [place] [address] Magnesiumon 06-09-2018 Magnesium mass conc 1.8 mg/dL Normal 1.7-2.3 [facility] Comment on above: Performed By: #### H STNT #### [facility] [address] [place], [place] [id number] PROGRESSon 06-09-2018 Protein mass conc HNO ID: [id number] Author: Lisa Bocanegra Service: Hospital Medicine Author [...] 1615 vte non-pharmacologic prophylaxis - none indicated ([place],oh) 06/08/18 1615 activity - mobilize patient ([place]) VTE Prophylaxis: VTE prophylaxis appropriate SIGNATURE: Lisa Bocanegra MD PATIENT NAME: Trenton Jackson DATE: June 09, 2018 TIME: 4:55 PM PAGER: [phone] Normal [facility] ABD COMPL WITH UPRIGHT PA CH ESTon 06-08-2018 ABD COMPL WITH UPRIGHT PA CHEST Performed at [facility] APPROVED BY: Jose Elias Carbera MD EXAM TITLE: ABD COMPL WITH UPRIGHT [...] of fecal material throughout the colon. Normal [facility] Comp Metabolic Panelon 06-08 Albumin mass conc 3.5 g/dL Low 3.9-4.9 [facility] Comment on above: Performed By: #### H STNT #### [facility] [address] [place] [address] ALP enzyme act/vol 95 U/L Normal 34-123 [facility] Comment on above: Performed By: #### H STNT #### [facility] [address] ALT enzyme act/vol 10 U/L Normal 7-38 [facility] Comment on above: Performed By: #### H STNT #### [facility] [address] [place] [address] Anion gap molar conc 9 mmol/L Normal 9-18 [facility] Comment on above: Performed By: #### H STNT #### [facility] [address] [place] [address] AST enzyme act/vol 14 U/L Normal 13-35 [facility] Comment on above: Performed By: #### H STNT #### [facility] [address] [place] [address] Bilirubin mass conc 0.9 mg/dL Normal 0.2-1.3 [facility] Comment on above: Performed By: #### H STNT #### [facility] [address] [place] [address] Calcium mass conc 8.9 mg/dL Normal 8.5-10.2 [facility] Comment on above: Performed By: #### H STNT #### [facility] [address] [place] [address] Chloride molar conc 100 mmol/L Normal 97-105 [facility] Comment on above: Performed By: #### H STNT #### [facility] [address] [place] [address] CO2 molar conc 26 mmol/L Normal 22-30 [facility] Comment on above: Performed By: #### H STNT #### [facility] [address] [place] [address] Creatinine mass conc 0.56 mg/dL Low 0.58-0.96 [facility] Comment on above: Performed By: #### H STNT #### [facility] [address] [place] [address] eGFR- Amer. >60 Normal [facility] Comment on above: Performed By: #### H STNT #### [facility] [address] [place] [address] GFR/1.73 sq M predicted among non-blacks MDRD vol rate/area (S/P/Bld) mL/min/{1.73_m2} Normal [facility] Comment on above: Result Comment: eGFR (Estimated [...] GFR. Performed By: #### H STNT #### [facility] [address] [place] [address] Glucose mass conc 219 mg/dL High 74-99 [facility] Comment on above: Result Comment: The [place] [employer] (ADA) provides guidance for cutoff [...] Standards of Medical Care in Diabetes 2016, [place] [employer]. Diabetes Care. 2016.39(Suppl 1). Performed By: #### H STNT #### [facility] [address] [place] [address] Potassium molar conc 4.0 mmol/L Normal 3.7-5.1 [facility] Comment on above: Performed By: #### H STNT #### [facility] [address] [place] [address] Protein mass conc 5.9 g/dL Low 6.3-8.0 [facility] Comment on above: Performed By: #### H STNT #### [facility] [address] [place] [address] Sodium molar conc 135 mmol/L Low 136-144 [facility] Comment on above: Performed By: #### H STNT #### [facility] [address] [place] [address] Urea nitrogen mass conc 3 mg/dL Low 7-21 M [facility] Comment on above: Performed By: #### H STNT #### [facility] [address] [place] [address] Comprehensive Panelon 2018 ALT-SGPT Blood 20 U/L Normal 14-63 [facility] Comment on above: Performed By: #### L MACU #### [facility] [address] [place] [address] Albumin [Mass/Vol] 3.3 g/dL Low 3.4-5.0 [facility] Comment on above: Performed By: #### L MACU #### [facility] [address] [place] [address] ALP [Catalytic activity/Vol] 111 U/L Normal 46-116 [facility] Comment on above: Performed By: #### L MACU #### [facility] [address] [place] [address] Anion gap [Moles/Vol] 15 mmol/L Normal 8-20 [facility] Comment on above: Performed By: #### L MACU #### [place] [address] AST-SGOT Blood 20 U/L Normal 15-37 [facility] Comment on above: Performed By: #### L MACU #### [facility] [address] [place] [address] Bilirubin Ql (U) 1.1 mg/dL High 0.2-1.0 [facility] Comment on above: Performed By: #### L MACU #### [facility] [address] [place] [address] Calcium [Mass/Vol] 8.9 mg/dL Normal 8.5-10.1 [facility] Comment on above: Performed By: #### L MACU #### [facility] [address] [place] [address] Chloride [Moles/Vol] 97 mmol/L Low 98-107 [facility] Comment on above: Performed By: #### L MACU #### [facility] [address] [place] [address] CO2 Blood 25 mEq/L Normal 21-32 [facility] Comment on above: Performed By: #### L MACU #### [place] [address] Creatinine [Mass/Vol] 0.52 mg/dL Normal 0.51-0.95 [facility] Comment on above: Performed By: #### L MACU #### [facility] 1 [place], [place] [address] Glucose [Mass/Vol] 354 mg/dL High 70-99 [facility] Comment on above: Performed By: #### L MACU #### [facility] 1 [place], [place] [address] Potassium [Moles/Vol] 4.0 mmol/L Normal 3.5-5.1 [facility] Comment on above: Performed By: #### L MACU #### [facility] 1 [place], [place] [address] Protein [Mass/Vol] 7.0 g/dL Normal 6.4-8.2 [facility] Comment on above: Performed By: #### L MACU #### [facility] 1 [place], [place] [address] Sodium [Moles/Vol] 133 mmol/L Low 136-145 [facility] Comment on above: Performed By: #### L MACU #### [address] [address] Urea nitrogen [Mass/Vol] 4 mg/dL Low 7-25 [facility] Comment on above: Performed By: #### L MACU #### [facility] 1 [place], [place] [address] Urea nitrogen/Creatinine [Mass ratio] 8 mg/mg Low 10-20 [facility] Comment on above: Performed By: #### L MACU #### [address] [address] Glucose Meteron 06-08-2018 Glucose [Mass/Vol] 224 mg/dL High 70-99 [facility] Comment on above: Result Comment: CHAYITO Flores OTIFIED [place] [address] Performed By: #### L ACET #### [address] [address] HISTORY PHYSICALon 9 HISTORY PHYSICAL HNO ID: [id number] Author: Lisa Bocanegra Service: Hospital Medicine Author Type: Physician Type: HANDP Filed: 06/08/2018 8:28 PM Note Text: SERVICE DATE: 06/08/2018 SERVICE TIME: 8:28 PM HOSPITAL MEDICINE HISTORY AND PHYSICAL PCP: Uziel Conteh MD NIGHT AND WEEKEND COVERAGE: Nights: Please contact pager [phone]. SUBJECTIVE Chief Complaint: abd pain- 4 days [...] hyperglycemia, with long-term current use of insulin ([facility]) Assessment: HBAIC 11.2 on 12/06/17 She takes [...] 1615 vte non-pharmacologic prophylaxis - none indicated (pa,ri) 06/08/18 1615 activity - mobilize patient (pa,ri) VTE Prophylaxis: VTE prophylaxis appropriate SIGNATURE: Lisa Bocanegra MD PATIENT NAME: Trenton Jackson DATE: June 08, 2018 TIME: 8:28 PM PAGER/CONTACT #: [phone] [facility] Hemoglobin A1con 06-08-2018 Hemoglobin A1c/Hemoglobin.total mass fraction (Bld) Unable to assay. No specimen received. [facility] Comment on above: Performed By: #### H STNT #### [facility] [address] [facility] [phone] Hemogram/Diffon 06-08-2018 Erythrocyte distribution width (RBC) [Ratio] 12.8 % Normal 11.5-15.9 [facility] Comment on above: Performed By: #### L MACU #### [facility] [address] [place] [address] Hemoglobin (Bld) [Mass/Vol] 16.0 g/dL Normal 12.0-16.0 [facility] Comment on above: Performed By: #### L MACU #### [place] [address] MCHC (RBC) [Mass/Vol] 34.4 % Normal 32.0-36.0 [facility] Comment on above: Performed By: #### L MACU #### [place] [address] MCV (RBC) [Entitic vol] 80.3 fL Low 81.0-99.0 [facility] Comment on above: Performed By: #### L MACU #### [place] [address] WBC (Bld) [#/Vol] 14.0 thou/cmm High 4.8-10.8 [facility] Comment on above: Performed By: #### L MACU #### [place] [address] Hemogram/Manual Diffon 06-08 Abs. Baso 0.00 thou/cmm Normal 0.00-0.08 [facility] Comment on above: Performed By: #### L MACU #### [place] [address] Abs. Eosin 0.00 thou/cmm Normal 0.00-0.41 [facility] Comment on above: Performed By: #### L MACU #### [place] [address] Abs. Lymph 2.24 thou/cmm Normal 1.50-3.65 [facility] Comment on above: Performed By: #### L MACU #### [facility] [address] [place] [address] Abs. [place] 0.28 thou/cmm Normal 0.20-1.00 [facility] Comment on above: Performed By: #### L MACU #### [facility] [address] [place] [address] Abs. Neut (ANC) 11.48 thou/cmm High 3.00-5.67 [facility] Comment on above: Performed By: #### L MACU #### [facility] [address] [place] [address] Basophil 0.0 % Normal [facility] Comment on above: Performed By: #### L MACU #### [facility] [address] [place] [address] Eosinophil 0.0 % Normal [facility] Comment on above: Performed By: #### L MACU #### [facility] [address] [place] [address] Lymphocyte 16.0 % Normal [facility] Comment on above: Performed By: #### L MACU #### [facility] [address] [place] [address] Monocyte 2.0 % Normal [facility] Comment on above: Performed By: #### L MACU #### [place] [address] Platelets (Bld) [#/Vol] Normal Normal A [facility] Comment on above: Performed By: #### L MACU #### [facility] [address] [place] [address] RBC morphology finding Nom (Bld) Normal Normal [facility] Comment on above: Performed By: #### L MACU #### [facility] [address] [place] [address] Seg Neutrophil 82.0 % Normal [facility] Comment on above: Performed By: #### L MACU #### [facility] [address] [place] [address] Toxic Granulation Few Normal [facility] Comment on above: Performed By: #### L MACU #### [facility] [address] [place] [address] WBC Morphology see below Normal [facility] Comment on above: Result Comment: Toxi c vacuoles present Performed By: #### L MACU #### [facility] [address] [place] [address] Diff Type Manual Diff Normal [facility] Comment on above: Performed By: #### L MACU #### [place] [address] Hematocrit (Bld) [Volume fraction] 46.5 % Normal 37.0-47.0 [facility] Comment on above: Performed By: #### L MACU #### [place] [address] MCH (RBC) [Entitic mass] 27.6 pg Normal 27.0-31.0 [facility] Comment on above: Performed By: #### L MACU #### [place] [address] Platelet mean volume (Bld) [Entitic vol] 9.5 fl Normal 7.1-10.5 [facility] Comment on above: Performed By: #### L MACU #### [place] [address] Platelets (Bld) [#/Vol] 197 thou/cmm Normal 150-400 [facility] Comment on above: Performed By: #### L MACU #### [place] [address] RBC (Bld) [#/Vol] 5.79 mil/cmm High 4.20-5.40 [facility] Comment on above: Performed By: #### L MACU #### [place] [address] Lactic acidon 06-08-2018 Lactate [Moles/Vol] 1.2 mmol/L Normal 0.4-2.0 [facility] Comment on above: Performed By: #### L MACU #### [place] [address] MDRD eGFRon 06-08-2018 GFR/1.73 sq M predicted among non-blacks MDRD (S/P/Bld) [Vol rate/Area] mL/min/{1.73_m2} Normal >60mL/min/ 1.73m2 [facility] Comment on above: Result Comment: If t he patient is , multiply the result by 1.210. Performed By: #### L ACET #### [place] [address] NT Pro BNPon 06-08-2018 Protein mass conc 763 pg/mL High <125 [facility] Comment on above: Performed By: #### H STNT #### [facility] [address] [facility] [phone] PROGRESSon 06-08-2018 Protein mass conc HNO ID: [id number] Author: Abbi Valencia (Pharmacist) Service: Pharmacy Author [...] patient is on atorvastatin ABBI VALENCIA, PHARMD, BCPS PAGER / Extension: [phone] Normal [facility] Urinalysis Routineon 019 Appearance (U) 1+ (HAZY) Normal [facility] Comment on above: Performed By: #### L ACET #### [place] [address] Bilirubin Urine Negative Normal Negative [facility] Comment on above: Performed By: #### L ACET #### [place] [address] Color (U) YELLOW Normal [facility] Comment on above: Performed By: #### L ACET #### [place] [address] Ep Cells Urine 2-5 Normal 0-5 [facility] Comment on above: Performed By: #### L ACET #### [facility] [address] [place] [address] Glucose Ql (U) 2+ Abnormal Negative [facility] Comment on above: Performed By: #### L ACET #### [facility] [address] [place] [address] Hemoglobin,Urine Negative Normal Negative [facility] Comment on above: Performed By: #### L ACET #### [facility] [address] [place] [address] Ketone Urine 1+ Abnormal Negative [facility] Comment on above: Performed By: #### L ACET #### [facility] [address] [place] [address] Leukocytes Esterase Negative Normal Negative [facility] Comment on above: Performed By: #### L ACET #### [place] [address] Nitrites Urine Negative Normal Negative [facility] Comment on above: Performed By: #### L ACET #### [place] [address] pH (U) 7.0 [pH] Normal 5.0-8.0 [facility] Comment on above: Performed By: #### L ACET #### [facility] [address] [place] [address] Protein (U) [Mass/Vol] Negative Normal Negative [facility] Comment on above: Performed By: #### L ACET #### [place] [address] RBC LM.HPF (Urine sed) [#/Area] 0-3 Normal 0-3 [facility] Comment on above: Performed By: #### L ACET #### [place] [address] Specific Metter, Ur 1.015 Normal 1.005-1 .03 0 [facility] Comment on above: Performed By: #### L ACET #### [place] [address] Urobilinogen,Ur 0.2 EU/dL Normal 0.0-1.0 [facility] Comment on above: Performed By: #### L ACET #### [facility] 1 [place], [place] [address] WBC LM.HPF (Urine sed) [#/Area] NONE Normal 0-5 [facility] Comment on above: Performed By: #### L ACET #### [facility] 1 [place], [place] [address] Urine HCG, Qual.on 9 Beta HCG ( test) Ql (U) Negative Normal Negative [facility] Comment on above: Performed By: #### L ACET #### [facility] 1 [place], [place] [address] CT ABDOMEN AND PELVIS WITH C ONTRASTon 06-07-2018 CT ABDOMEN AND PELVIS WITH CONTRAST Performed at [facility] APPROVED BY: Chalo Russell MD EXAMINATION: CT [...] evidence of an abscess or pneumoperitoneum Normal [facility] Comprehensive Panelon 2018 Albumin [Mass/Vol] 3.5 g/dL Normal 3.4-5.0 [facility] Comment on above: Performed By: #### L MACU #### [place] [address] ALP [Catalytic activity/Vol] 112 U/L Normal 46-116 [facility] Comment on above: Performed By: #### L MACU #### [place] [address] ALT-SGPT Blood 17 U/L Normal 14-63 [facility] Comment on above: Performed By: #### L MACU #### [place] [address] Anion gap [Moles/Vol] 14 mmol/L Normal 8-20 [facility] Comment on above: Performed By: #### L MACU #### [place] [address] AST-SGOT Blood 16 U/L Normal 15-37 [facility] Comment on above: Performed By: #### L MACU #### [place] [address] Bilirubin Ql (U) 0.7 mg/dL Normal 0.2-1.0 [facility] Comment on above: Performed By: #### L MACU #### [place] [address] Calcium [Mass/Vol] 9.1 mg/dL Normal 8.5-10.1 [facility] Comment on above: Performed By: #### L MACU #### [facility] 1 [place], [place] [address] Chloride [Moles/Vol] 97 mmol/L Low 98-107 [facility] Comment on above: Performed By: #### L MACU #### [facility] 1 [place], [place] [address] CO2 Blood 27 mEq/L Normal 21-32 [facility] Comment on above: Performed By: #### L MACU #### [facility] [address] [place], [place] [address] Creatinine [Mass/Vol] 0.57 mg/dL Normal 0.51-0.95 [facility] Comment on above: Performed By: #### L MACU #### [facility] [address] [place], [place] [address] Glucose [Mass/Vol] 416 mg/dL Critically high 70-99 [facility] Comment on above: Performed By: #### L MACU #### [facility] [address] [place], [place] [address] Potassium [Moles/Vol] 3.9 mmol/L Normal 3.5-5.1 [facility] Comment on above: Performed By: #### L MACU #### [facility] [address] [place], [place] [address] Protein [Mass/Vol] 7.4 g/dL Normal 6.4-8.2 [facility] Comment on above: Performed By: #### L MACU #### [facility] [address] [place], [place] [address] Sodium [Moles/Vol] 134 mmol/L Low 136-145 [facility] Comment on above: Performed By: #### L MACU #### [facility] [address] [place], [place] [address] Urea nitrogen [Mass/Vol] 7 mg/dL Normal 7-25 [facility] Comment on above: Performed By: #### L MACU #### [facility] [address] [place], [place] [address] Urea nitrogen/Creatinine [Mass ratio] 12 mg/mg Normal 10-20 [facility] Comment on above: Performed By: #### L MACU #### [facility] [address] [place] [address] Glucose Meteron 06-07-2018 Glucose [Mass/Vol] 326 mg/dL High 70-99 [facility] Comment on above: Result Comment: CHAYITO MÉNDEZ MD NOTIFIED [place] [address] Performed By: #### L MACU #### [place] [address] Hemogram/Diffon 06-07-2018 Abs. Baso 0.07 thou/cmm Normal 0.00-0.08 [facility] Comment on above: Performed By: #### L CBCD #### [place] [address] Abs. [place] 0.43 thou/cmm Normal 0.20-1.00 [facility] Comment on above: Performed By: #### L CBCD #### [place] [address] Abs. Neut (ANC) 9.53 thou/cmm High 3.00-5.67 [facility] Comment on above: Performed By: #### L CBCD #### [place] [address] Basophils/100 WBC (Bld) 0.6 % Normal A [facility] Comment on above: Performed By: #### L CBCD #### [place] [address] Eosinophils (Bld) [#/Vol] 0.17 thou/cmm Normal 0.00-0.41 [facility] Comment on above: Performed By: #### L CBCD #### [place] [address] Eosinophils/100 WBC (Bld) 1.4 % Normal [facility] Comment on above: Performed By: #### L CBCD #### [place] [address] Erythrocyte distribution width (RBC) [Ratio] 12.8 % Normal 11.5-15.9 [facility] Comment on above: Performed By: #### L CBCD #### [facility] [address] [place], [place] [address] Hematocrit (Bld) [Volume fraction] 47.7 % High 37.0-47.0 [facility] Comment on above: Performed By: #### L CBCD #### [facility] [address] [place], [place] [address] Hemoglobin (Bld) [Mass/Vol] 16.1 g/dL High 12.0-16.0 [facility] Comment on above: Performed By: #### L CBCD #### [address] [address] Lymphocytes (Bld) [#/Vol] 2.00 thou/cmm Normal 1.50-3.65 [facility] Comment on above: Performed By: #### L CBCD #### [address] [address] Lymphocytes/100 WBC (Bld) 16.4 % Normal [facility] Comment on above: Performed By: #### L CBCD #### [address] [address] MCH (RBC) [Entitic mass] 27.3 pg Normal 27.0-31.0 [facility] Comment on above: Performed By: #### L CBCD #### [address] [address] MCHC (RBC) [Mass/Vol] 33.8 % Normal 32.0-36.0 [facility] Comment on above: Performed By: #### L CBCD #### [address] [address] MCV (RBC) [Entitic vol] 81.0 fL Normal 81.0-99.0 [facility] Comment on above: Performed By: #### L CBCD #### [address] [address] Monocytes/100 WBC (Bld) 3.5 % Normal [facility] Comment on above: Performed By: #### L CBCD #### [address] [place], [place] [address] Platelet mean volume (Bld) [Entitic vol] 9.5 fL Normal 7.1-10.5 [facility] Comment on above: Performed By: #### L CBCD #### [facility] [address] [place] [address] Platelets (Bld) [#/Vol] 235 thou/cmm Normal 150-400 [facility] Comment on above: Performed By: #### L CBCD #### [facility] [address] [place] [address] RBC (Bld) [#/Vol] 5.89 mil/cmm High 4.20-5.40 [facility] Comment on above: Performed By: #### L CBCD #### [place] [address] Seg Neutrophil 78.1 % Normal [facility] Comment on above: Performed By: #### L CBCD #### [place] [address] WBC (Bld) [#/Vol] 12.2 thou/cmm High 4.8-10.8 [facility] Comment on above: Performed By: #### L CBCD #### [place] [address] Lactic acidon 06-07-2018 Lactate [Moles/Vol] 1.6 mmol/L Normal 0.4-2.0 [facility] Comment on above: Performed By: #### L MACU #### [place] [address] MDRD eGFRon 06-07-2018 GFR/1.73 sq M predicted among non-blacks MDRD (S/P/Bld) [Vol rate/Area] mL/min/{1.73_m2} Normal >60mL/min/ 1.73m2 [facility] Comment on above: Result Comment: If t he patient is , multiply the result by 1.210. Performed By: #### L MACU #### [place] [address] Macroscopic Urinalysison Appearance (U) CLEAR Normal [facility] Comment on above: Performed By: #### L MACU #### [facility] [address] [place] [address] Bilirubin Urine Negative Normal Negative [facility] Comment on above: Performed By: #### L MACU #### [facility] [address] [place] [address] Color (U) YELLOW Normal [facility] Comment on above: Performed By: #### L MACU #### [facility] [address] [place] [address] Glucose Ql (U) 3+ Abnormal Negative [facility] Comment on above: Performed By: #### L MACU #### [place] [address] Hemoglobin,Urine Negative Normal Negative [facility] Comment on above: Performed By: #### L MACU #### [place] [address] Ketone Urine TRACE Abnormal Negative [facility] Comment on above: Performed By: #### L MACU #### [place] [address] Leukocytes Esterase Negative Normal Negative [facility] Comment on above: Performed By: #### L MACU #### [place] [address] Nitrites Urine Negative Normal Negative [facility] Comment on above: Performed By: #### L MACU #### [place] [address] pH (U) 6.5 [pH] Normal 5.0-8.0 [facility] Comment on above: Performed By: #### L MACU #### [place] [address] Protein (U) [Mass/Vol] Negative Normal Negative [facility] Comment on above: Performed By: #### L MACU #### [place] [address] Specific Metter, Ur <=1.005 Normal 1.005-1 .03 0 [facility] Comment on above: Performed By: #### L MACU #### [facility] [address] [place], [place] [address] Urobilinogen,Ur 0.2 EU/dL Normal 0.0-1.0 [facility] Comment on above: Performed By: #### L MACU #### [facility] [address] [place], [place] [address] CT ABDOMEN AND PELVIS WITH C ONTRASTon 06-04-2018 CT ABDOMEN AND PELVIS WITH CONTRAST Performed at [facility] APPROVED BY: Nixon Cortez MD EXAM TITLE: [...] additional stable chronic findings as above Normal [facility] Comprehensive Panelon 2018 Albumin [Mass/Vol] 3.9 g/dL Normal 3.4-5.0 [facility] Comment on above: Performed By: #### L P14 #### [place] [address] ALP [Catalytic activity/Vol] 139 U/L High 46-116 [facility] Comment on above: Performed By: #### L P14 #### [place] [address] ALT-SGPT Blood 22 U/L Normal 14-63 [facility] Comment on above: Performed By: #### L P14 #### [place] [address] Anion gap [Moles/Vol] 13 mmol/L Normal 8-20 [facility] Comment on above: Performed By: #### L P14 #### [place] [address] AST-SGOT Blood 19 U/L Normal 15-37 [facility] Comment on above: Performed By: #### L P14 #### [place] [address] Bilirubin Ql (U) 0.7 mg/dL Normal 0.2-1.0 [facility] Comment on above: Performed By: #### L P14 #### [place] [address] Calcium [Mass/Vol] 9.5 mg/dL Normal 8.5-10.1 [facility] Comment on above: Performed By: #### L P14 #### [facility] [address] [place], [place] [address] Chloride [Moles/Vol] 97 mmol/L Low 98-107 [facility] Comment on above: Performed By: #### L P14 #### [facility] [address] [place], [place] [address] CO2 Blood 23 mEq/L Normal 21-32 [facility] Comment on above: Performed By: #### L P14 #### [facility] [address] [place], [place] [address] Creatinine [Mass/Vol] 0.56 mg/dL Normal 0.51-0.95 [facility] Comment on above: Performed By: #### L P14 #### [facility] [address] [place], [place] [address] Glucose [Mass/Vol] 323 mg/dL High 70-99 [facility] Comment on above: Performed By: #### L P14 #### [facility] [address] [place], [place] [address] Potassium [Moles/Vol] 4.5 mmol/L Normal 3.5-5.1 [facility] Comment on above: Performed By: #### L P14 #### [facility] [address] [place], [place] [address] Protein [Mass/Vol] 8.0 g/dL Normal 6.4-8.2 [facility] Comment on above: Performed By: #### L P14 #### [facility] [address] [place], [place] [address] Sodium [Moles/Vol] 129 mmol/L Low 136-145 [facility] Comment on above: Performed By: #### L P14 #### [facility] [address] [place], [place] [address] Urea nitrogen [Mass/Vol] 9 mg/dL Normal 7-25 [facility] Comment on above: Performed By: #### L P14 #### [facility] [address] [place], [place] [address] Urea nitrogen/Creatinine [Mass ratio] 16 mg/mg Normal 10-20 [facility] Comment on above: Performed By: #### L P14 #### [facility] [address] [place] [address] HCG, Qual. Serumon 9 HCG, Qual. Serum Negative Normal Negative [facility] Comment on above: Performed By: #### L SHCG #### [facility] [address] [place] [address] Hemogram/Manual Diffon 06-04 Abs. Baso 0.00 thou/cmm Normal 0.00-0.08 [facility] Comment on above: Performed By: #### L MCBD #### [facility] [address] [place] [address] Abs. Eosin 0.17 thou/cmm Normal 0.00-0.41 [facility] Comment on above: Performed By: #### L MCBD #### [facility] [address] [place] [address] Abs. Lymph 3.46 thou/cmm Normal 1.50-3.65 [facility] Comment on above: Performed By: #### L MCBD #### [facility] [address] [place] [address] Abs. [place] 0.69 thou/cmm Normal 0.20-1.00 [facility] Comment on above: Performed By: #### L MCBD #### [facility] [address] [place] [address] Abs. Neut (ANC) 12.98 thou/cmm High 3.00-5.67 [facility] Comment on above: Performed By: #### L MCBD #### [facility] [address] [place] [address] Atypical Lymph 3.0 % Normal [facility] Comment on above: Performed By: #### L MCBD #### [facility] [address] [place] [address] Basophil 0.0 % Normal [facility] Comment on above: Performed By: #### L MCBD #### [place] [address] Eosinophil 1.0 % Normal [facility] Comment on above: Performed By: #### L MCBD #### [facility] [address] [place] [address] Lymphocyte 17.0 % Normal [facility] Comment on above: Performed By: #### L MCBD #### [facility] [address] [place] [address] Metamyelocytes 2.0 % Normal [facility] Comment on above: Performed By: #### L MCBD #### [facility] [address] [place] [address] Monocyte 4.0 % Normal [facility] Comment on above: Performed By: #### L MCBD #### [facility] [address] [place] [address] Platelets (Bld) [#/Vol] Normal Normal A [facility] Comment on above: Performed By: #### L MCBD #### [place] [address] RBC morphology finding Nom (Bld) Normal Normal [facility] Comment on above: Performed By: #### L MCBD #### [facility] [address] [place] [address] Seg Neutrophil 73.0 % Normal [facility] Comment on above: Performed By: #### L MCBD #### [facility] [address] [place] [address] Toxic Granulation Few Normal [facility] Comment on above: Performed By: #### L MCBD #### [place] [address] WBC Morphology see below Normal [facility] Comment on above: Result Comment: Toxi c vacuoles present Performed By: #### L MCBD #### [facility] [address] [place] [address] Diff Type Manual Diff Normal [facility] Comment on above: Performed By: #### L MCBD #### [facility] [facility] [address] [place] [address] Erythrocyte distribution width (RBC) [Ratio] 13.2 % Normal 11.5-15.9 [facility] Comment on above: Performed By: #### L MCBD #### [address], [place] [address] Hematocrit (Bld) [Volume fraction] 51.8 % High 37.0-47.0 [facility] Comment on above: Performed By: #### L MCBD #### [facility] [address] [place], [place] [address] Hemoglobin (Bld) [Mass/Vol] 17.7 g/dL High 12.0-16.0 [facility] Comment on above: Performed By: #### L MCBD #### [facility] [address] [place] [address] MCH (RBC) [Entitic mass] 27.5 pg Normal 27.0-31.0 [facility] Comment on above: Performed By: #### L MCBD #### [facility] [address] [place] [address] MCHC (RBC) [Mass/Vol] 34.2 % Normal 32.0-36.0 [facility] Comment on above: Performed By: #### L MCBD #### [place] [address] MCV (RBC) [Entitic vol] 80.4 fl Low 81.0-99.0 [facility] Comment on above: Performed By: #### L MCBD #### [place] [address] Platelet mean volume (Bld) [Entitic vol] 10.3 fl Normal 7.1-10.5 [facility] Comment on above: Performed By: #### L MCBD #### [facility] [address] [place] [address] Platelets (Bld) [#/Vol] 224 thou/cmm Normal 150-400 [facility] Comment on above: Performed By: #### L MCBD #### [facility] [address] [place] [address] RBC (Bld) [#/Vol] 6.44 mil/cmm High 4.20-5.40 [facility] Comment on above: Performed By: #### L MCBD #### [place] [address] WBC (Bld) [#/Vol] 17.3 thou/cmm High 4.8-10.8 [facility] Comment on above: Performed By: #### L MCBD #### [place] [address] Ketoneson 06-04-2018 Ketones Ql (U) Negative Normal Negative [facility] Comment on above: Performed By: #### L ACET #### [place] [address] Lipase Bloodon 06-04-2018 Lipase Blood 85 U/L Normal 73-393 [facility] Comment on above: Performed By: #### L LIP #### [place] [address] MDRD eGFRon 06-04-2018 GFR/1.73 sq M predicted among non-blacks MDRD (S/P/Bld) [Vol rate/Area] mL/min/{1.73_m2} Normal >60mL/min/ 1.73m2 [facility] Comment on above: Result Comment: If t he patient is , multiply the result by 1.210. Performed By: #### L GFR #### [place] [address] Macroscopic Urinalysison Appearance (U) CLEAR Normal [facility] Comment on above: Performed By: #### L MACU #### [place] [address] Bilirubin Urine Negative Normal Negative [facility] Comment on above: Performed By: #### L MACU #### [place] [address] Color (U) YELLOW Normal [facility] Comment on above: Performed By: #### L MACU #### [place] [address] Glucose Ql (U) 2+ Abnormal Negative [facility] Comment on above: Performed By: #### L MACU #### [place] [address] Hemoglobin,Urine Negative Normal Negative [facility] Comment on above: Performed By: #### L MACU #### [facility] [address] [place] [address] Ketone Urine Negative Normal Negative [facility] Comment on above: Performed By: #### L MACU #### [facility] [address] [place] [address] Leukocytes Esterase Negative Normal Negative [facility] Comment on above: Performed By: #### L MACU #### [facility] [address] [place] [address] Nitrites Urine Negative Normal Negative [facility] Comment on above: Performed By: #### L MACU #### [place] [address] pH (U) 5.0 [pH] Normal 5.0-8.0 [facility] Comment on above: Performed By: #### L MACU #### [place] [address] Protein (U) [Mass/Vol] Negative Normal Negative [facility] Comment on above: Performed By: #### L MACU #### [place] [address] Specific Metter, Ur 1.020 Normal 1.005-1 .03 0 [facility] Comment on above: Performed By: #### L MACU #### [place] [address] Urobilinogen,Ur 0.2 EU/dL Normal 0.0-1.0 [facility] Comment on above: Performed By: #### L MACU #### [place] [address] Macroscopic Urinalysison Appearance (U) CLEAR Normal [facility] Comment on above: Performed By: #### L MACU #### [place] [address] Bilirubin Urine Negative Normal Negative [facility] Comment on above: Performed By: #### L MACU #### [place] [address] Color (U) YELLOW Normal [facility] Comment on above: Performed By: #### L MACU #### [facility] [address] [place] [address] Glucose Ql (U) 2+ Abnormal Negative [facility] Comment on above: Performed By: #### L MACU #### [facility] [address] [place] [address] Hemoglobin,Urine Negative Normal Negative [facility] Comment on above: Performed By: #### L MACU #### [facility] [address] [place] [address] Ketone Urine Negative Normal Negative [facility] Comment on above: Performed By: #### L MACU #### [place] [address] Leukocytes Esterase Negative Normal Negative [facility] Comment on above: Performed By: #### L MACU #### [place] [address] Nitrites Urine Negative Normal Negative [facility] Comment on above: Performed By: #### L MACU #### [place] [address] pH (U) 6.0 [pH] Normal 5.0-8.0 [facility] Comment on above: Performed By: #### L MACU #### [facility] [address] [place] [address] Protein (U) [Mass/Vol] Negative Normal Negative [facility] Comment on above: Performed By: #### L MACU #### [place] [address] Specific Metter, Ur 1.020 Normal 1.005-1 .03 0 [facility] Comment on above: Performed By: #### L MACU #### [place] [address] Urobilinogen,Ur 0.2 EU/dL Normal 0.0-1.0 [facility] Comment on above: Performed By: #### L MACU #### [place] [address] CBC and Differentialon 12-14 Abs Baso 0.06 k/uL Normal <0.11 [facility] Comment on above: Performed By: #### N DIDIER CKCKMB #### [facility] [address] [place] [address] Abs [place] 0.69 k/uL Normal <0.87 [facility] Comment on above: Performed By: #### N DIDIER CKCKMB #### [facility] [address] [place] [address] Abs Neut 8.14 k/uL High 1.45-7.50 [facility] Comment on above: Performed By: #### N DIDIER CKCKMB #### [facility] [address] [place] [address] Basophils/100 WBC (Bld) 0.5 % Normal [facility] Comment on above: Performed By: #### N DIDIER CKCKMB #### [facility] [address] [place] [address] Eosinophils #/vol (Bld) 0.14 10*3/uL Normal <0.46 [facility] Comment on above: Performed By: #### N DIDIER CKCKMB #### [facility] [address] [place] [address] Eosinophils/100 WBC (Bld) 1.2 % Normal [facility] Comment on above: Performed By: #### N DIDIER CKCKMB #### [facility] [address] [place] [address] Erythrocyte distribution width Ratio (RBC) 13.1 % Normal 11.5-15.0 [facility] Comment on above: Performed By: #### N DIDIER CKCKMB #### [facility] [address] [place] [address] Hematocrit Volume Fraction (Bld) 46.6 % High 36.0-46.0 [facility] Comment on above: Performed By: #### N DIDIER CKCKMB #### [facility] [address] [place] [address] Hemoglobin mass conc (Bld) 15.9 g/dL High 11.5-15.5 [facility] Comment on above: Performed By: #### N TBAMOR CKCKMB #### [facility] [address] [phone] Lymphocytes #/vol (Bld) 2.69 10*3/uL Normal 1.00-4.00 [facility] Comment on above: Performed By: #### N TBAMOR CKCKMB #### [facility] [address] [place] [address] Lymphocytes/100 WBC (Bld) 23.0 % Normal [facility] Comment on above: Performed By: #### N TBAMOR CKCKMB #### [facility] [address] [place] [address] MCH Entitic mass (RBC) 28.0 pG Normal 26.0-34.0 [facility] Comment on above: Performed By: #### N TBAMOR CKCKMB #### [facility] [address] [place] [address] MCHC mass conc (RBC) 34.1 g/dL Normal 30.5-36.0 [facility] Comment on above: Performed By: #### N TBAMOR CKCKMB #### [facility] [address] [place] [address] MCV Entitic volume (RBC) 82.0 fL Normal 80.0-100.0 [facility] Comment on above: Performed By: #### N TBAMOR CKCKMB #### [facility] [address] [place] [address] Monocytes/100 WBC (Bld) 5.9 % Normal [facility] Comment on above: Performed By: #### N TBAMOR CKCKMB #### [facility] [address] [place] [address] Neutrophils/100 WBC (Bld) 69.4 % Normal [facility] Comment on above: Performed By: #### N TBAMOR CKCKMB #### [facility] [address] [place] [address] Platelet mean volume Entitic volume (Bld) 10.5 fL Normal 9.0-12.7 [facility] Comment on above: Performed By: #### N TBAMOR CKCKMB #### [facility] [address] [place] [address] Platelets #/vol (Bld) 236 10*3/uL Normal 150-400 [facility] Comment on above: Performed By: #### N TBAMOR CKCKMB #### [facility] [address] [place] [phone] RBC #/vol (Bld) 5.68 10*6/uL High 3.90-5.20 [facility] Comment on above: Performed By: #### N TBNP, CKCKMB #### [facility] [address] [facility] [phone] WBC #/vol (Bld) 11.72 10*3/uL High 3.70-11.00 [facility] Comment on above: Performed By: #### N TBNP, CKCKMB #### [facility] [address] [place] [phone] CK, Total and CKMBon 018 CK enzyme act/vol 41 U/L Low 42-196 [facility] Comment on above: Performed By: #### N TBNP, CKCKMB #### [facility] [address] [place] [phone] CK MB % CK MB % not reported with CK <100 U/L. Normal 0.0-4.0 [facility] Comment on above: Performed By: #### N TBNP, CKCKMB #### [facility] [address] [place] [phone] MB 1.5 ng/mL Normal <4.3 [facility] Comment on above: Performed By: #### N TBNP, CKCKMB #### [facility] [address] [place] [phone] CT CHEST W IVCON PEon 2017 CT CHEST W IVCON PE * * *Final Report* * * DATE OF EXAM: Dec 14 2017 6:46PM [facility] [place] [place] 0540 - CT CHEST W IVCON PE [...] nodes. Cholecystectomy. Bilateral adrenal nodules, possibly adenomas. Control Tower Operator: GEORGE Transcribe Date/Time: Dec 14 2017 7:14P Dictated by : WILLA VELASCO MD This examination was interpreted and the report reviewed and electronically signed by: WILLA VELASCO MD on Dec 14 2017 7:21PM EST [id number] Normal [facility] Comp Metabolic Panelon 12-14 Albumin mass conc 3.8 g/dL Low 3.9-4.9 [facility] Comment on above: Performed By: #### N TBNP, CKCKMB #### [facility] [address] [facility] [phone] ALP enzyme act/vol 82 U/L Normal 32-117 [facility] Comment on above: Performed By: #### N TBNP, CKCKMB #### [facility] [address] [facility] [phone] ALT enzyme act/vol 17 U/L Normal 7-38 [facility] Comment on above: Performed By: #### N DIDIER CKCKMB #### [facility] [address] [place] [address] Anion gap molar conc 10 mmol/L Normal 9-18 [facility] Comment on above: Performed By: #### N DIDIER CKCKMB #### [facility] [address] [place] [address] AST enzyme act/vol 17 U/L Normal 13-35 [facility] Comment on above: Performed By: #### N DIDIER CKCKMB #### [facility] [address] [place] [address] Bilirubin mass conc 0.6 mg/dL Normal 0.2-1.3 [facility] Comment on above: Performed By: #### N DIDIER CKCKMB #### [facility] [address] [place] [address] Calcium mass conc 8.9 mg/dL Normal 8.5-10.2 [facility] Comment on above: Performed By: #### N DIDIER CKCKMB #### [facility] [address] [place] [address] Chloride molar conc 99 mmol/L Normal 97-105 [facility] Comment on above: Performed By: #### N DIDIER CKCKMB #### [facility] [address] [place] [address] CO2 molar conc 28 mmol/L Normal 22-30 [facility] Comment on above: Performed By: #### N DIDIER CKCKMB #### [facility] [address] [place] [address] Creatinine mass conc 0.67 mg/dL Normal 0.58-0.96 [facility] Comment on above: Performed By: #### N DIDIER CKCKMB #### [facility] [address] [place] [address] eGFR- Amer. >60 Normal [facility] Comment on above: Performed By: #### N TBAMOR CKCKMB #### [facility] [address] [place] [address] GFR/1.73 sq M predicted among non-blacks MDRD vol rate/area (S/P/Bld) mL/min/{1.73_m2} Normal [facility] Comment on above: Result Comment: eGFR (Estimated [...] reflect actual GFR. Performed By: #### N DIDIER CKCKMB #### [facility] [address] [place] [address] Glucose mass conc 180 mg/dL High 74-99 [facility] Comment on above: Result Comment: The [place] [employer] (ADA) provides guidance for cutoff [...] Standards of Medical Care in Diabetes 2016, [place] [employer]. Diabetes Care. 2016.39(Suppl 1). Performed By: #### N DIDIER CKCKMB #### [facility] [address] [facility] [phone] Potassium molar conc 4.2 mmol/L Normal 3.7-5.1 [facility] Comment on above: Performed By: #### N DIDIER CKCKMB #### [facility] [address] [place] [address] Protein mass conc 6.9 g/dL Normal 6.3-8.0 [facility] Comment on above: Performed By: #### N DIDIER CKCKMB #### [facility] [address] [facility] [phone] Sodium molar conc 137 mmol/L Normal 136-144 [facility] Comment on above: Performed By: #### N DIDIER, CKCKMB #### [facility] [address] [facility] [phone] Urea nitrogen mass conc 9 mg/dL Normal 7-21 [facility] Comment on above: Performed By: #### N DIDIER, CKCKMB #### [facility] [address] [facility] [phone] D dimeron 12-14-2017 D dimer 600 ng/mL FEU High 0-500 [facility] Comment on above: Result Comment: The D-dimer [...] specificity of 41.7%. Performed By: #### N DIDIER, CKCKMB #### [facility] [address] [facility] [phone] ED NOTEon 12-14-2017 ED NOTE HNO ID: [id number] Author: Stacey AgudeloRn) CHAYITO Godinez Service: (none) Author Type: Registered Nurse Type: ED Notes Filed: 12/14/2017 7:58 PM Note Text: Patient in stable condition upon discharge. resp even and unlabored. No distress noted. Patient states she is feeling much better. Discharge and follow up reviewed, plan of care is agreed upon. Patient thankful for care upon discharge. [facility] ED NOTE HNO ID: [id number] Author: Lyla AgudeloRn) Desiree, RN Service: Nursing Author Type: Registered Nurse Type: ED Notes Filed: 12/14/2017 6:43 PM Note Text: Patient returned to the Emergency Department. [facility] ED NOTE HNO ID: [id number] Author: Lyla AgudeloRn) Desiree, RN Service: Nursing Author Type: Registered Nurse Type: ED Notes Filed: 12/14/2017 6:31 PM Note Text: Pt to CT with tech via wheelchair [facility] ED NOTE HNO ID: [id number] Author: Lyla (Rn) CHAYITO Ramírez Service: Nursing Author Type: Registered Nurse Type: ED Notes Filed: 12/14/2017 6:14 PM Note Text: Dr. Conway rounding on pt at bedside [facility] ED NOTE HNO ID: [id number] Author: Lyla AgudeloRn) CHAYITO Ramírez Service: Nursing Author Type: Registered Nurse Type: ED Notes Filed: 12/14/2017 3:31 PM Note Text: Patient returned to the Emergency Department. [facility] ED NOTE HNO ID: [id number] Author: Lyla AgudeloRn) CHAYITO Ramírez Service: Nursing Author Type: Registered Nurse Type: ED Notes Filed: 12/14/2017 3:25 PM Note Text: Pt to xray with tech. [facility] ED NOTE HNO ID: [id number] Author: Jazzmine AgudeloRn) CHAYITO Jarrett Service: Emergency Medicine Author Type: Registered Nurse Type: ED Notes Filed: 12/14/2017 3:28 PM Note Text: Report off care to Racquel STRATTON [facility] ED NOTE HNO ID: [id number] Author: Stacey AgudeloRn) CHAYITO Godinez Service: (none) Author Type: Registered Nurse Type: ED Notes Filed: 12/14/2017 2:57 PM Note Text: Patient presents to ED with chest pain x 4 days. Seen at [place] and recently dc from [facility] ED PROV NOTEon 12-14-2017 Protein mass conc HNO ID: [id number] Author: Jimmie Conway DO Service: Emergency Medicine Author Type: Physician Type: ED Provider Notes Filed: 12/14/2017 7:42 PM Note Text: ED Provider Note Patient Name: Trenton Jackson SERVICE DATE: 12/14/17 History Patient presents with: Chest Pain 47-year-old female past medical history of diabetes hypertension hyperlipidemia tobacco abuse presents with chest pain. Patient recently had an admission at [facility] from December 04, 2017 2 December [...] Medications administered aspirin and Toradol Placed on court monitor Reviewed and summarized previous medical records including recent admission at [facility] [place] for extensive cardiac workup Consultation obtained [employer] Dr. Beyer Consultation recommendations unlikely to be related to recently diagnosed coronary artery dissection Stable upon arrival. EKG shows chronic abnormalities unchanged from recent EKGs.. Treated with aspirin followed by Toradol. Cardiac enzymes including troponin T and CK-MB within normal limits. Minimal leukocytosis noted. Chest x-ray negative. D-dimer mildly elevated. CT chest negative. Discussed with on-call [employer], chest pain unlikely to be related to recently diagnosed coronary artery dissection. Patient with significant improvement pain post analgesia as noted above. Will be discharged home in stable condition with continued use of previously prescribed tramadol and new prescription for Flexeril thoroughly notified of sedating effects. 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 provided to paintings restorer, will follow-up with both [employer] and primary care physician as soon as [...] and stable SIGNATURE: DO Jimmie Helm DO 12/14/171941 Normal [facility] Magnesiumon 12-14-2017 Magnesium mass conc 1.9 mg/dL Normal 1.7-2.3 [facility] Comment on above: Performed By: #### N TBNP, CKCKMB #### [facility] [address] [place] [address] Troponin Ton 12-14-2017 Troponin T.cardiac mass conc ug/L Normal 0.000-0.02 9 [facility] Comment on above: Performed By: #### N TBNP, CKCKMB #### [facility] [address] [place] [address] XR CHEST 2V FRONTAL/LATon XR CHEST 2V [...] Other: . IMPRESSION: No acute radiographic abnormality. Control Tower Operator: GEORGE Transcribe Date/Time: Dec 14 2017 3:44P Dictated by : WILLA VELASCO MD This examination was interpreted and the report reviewed and electronically signed by: WILLA VELASCO MD on Dec 14 2017 3:44PM EST [id number] Normal [facility] CBCon 12-04-2017 Erythrocyte distribution width Ratio (RBC) 13.1 % Normal 11.5-15.0 [facility] Comment on above: Performed By: #### C BCDIF, PT, PTT, CMP #### [facility] [address] [place] [address] Hematocrit Volume Fraction (Bld) 44.2 % Normal 36.0-46.0 [facility] Comment on above: Performed By: #### C BCDIF, PT, PTT, CMP #### [facility] [address] [place] [address] Hemoglobin mass conc (Bld) 14.8 g/dL Normal 11.5-15.5 [facility] Comment on above: Performed By: #### C BCDIF, PT, PTT, CMP #### [facility] [address] [place] [address] MCH Entitic mass (RBC) 27.5 pG Normal 26.0-34.0 [facility] Comment on above: Performed By: #### C BCDIF, PT, PTT, CMP #### [facility] [address] [place] [address] MCHC mass conc (RBC) 33.5 g/dL Normal 30.5-36.0 [facility] Comment on above: Performed By: #### C BCDIF, PT, PTT, CMP #### [facility] [address] [place], [place] [phone] MCV Entitic volume (RBC) 82.0 fL Normal 80.0-100.0 [facility] Comment on above: Performed By: #### C BCDIF, PT, PTT, CMP #### [facility] [address] [place], [place] [phone] Platelet mean volume Entitic volume (Bld) 10.1 fL Normal 9.0-12.7 [facility] Comment on above: Performed By: #### C BCDIF, PT, PTT, CMP #### [facility] [address] [place] [phone] Platelets #/vol (Bld) 227 10*3/uL Normal 150-400 [facility] Comment on above: Performed By: #### C BCDIF, PT, PTT, CMP #### [facility] [address] [place] [phone] RBC #/vol (Bld) 5.39 10*6/uL High 3.90-5.20 [facility] Comment on above: Performed By: #### C BCDIF, PT, PTT, CMP #### [facility] [address] [place] [phone] WBC #/vol (Bld) 9.07 10*3/uL Normal 3.70-11.00 [facility] Comment on above: Performed By: #### C BCDIF, PT, PTT, CMP #### [facility] [address] [facility] [phone] CNCOon 12-04-2017 CNCO Letter Text December 04, 2017 Trenton Jackson [facility] [address] [facility] [address] Dear Ms. Jackson, The nurses and staff of [facility] hope this letter finds you feeling well [...] free to contact me, Bety Alcaraz RN ([phone]) or email me at, Additionally, you will receive a survey in [...] participation and thank you for choosing the [facility] for your health needs. Sincerely, Nurse [employer]phalt [employer] Operator: Bety Alcaraz RN ([phone]) [facility] Unit: 3 [facility] CONSULT PROGon 12-04-2017 Protein mass conc HNO ID: [id number] Author: Jevon Sherman Service: Clinical Cardiology Author [...] Peripheral pulses present. MEDICATIONS: Current hospital medications: [MAR Hold due to Transfer] atorvastatin 80 mg [...] (PROTONIX) 40 mg ORAL BID AC (0600/1600) [MAR Hold due to Transfer] sucralfate 1 g tab(s) (CARAFATE) 1 g ORAL TID [AUG Hold due to Transfer] morphine 2 mg injection 2 mg INTRAVENOUS q 4 H PRN [MAR Hold due to Transfer] nitroglycerin sublingual 0.4 mg tab(s) (NITROQUICK) 0.4 mg SUBLINGUAL q 5 MIN PRN [AUG Hold due to Transfer] dicyclomine 20 mg tab(s) (BENTYL) 20 mg ORAL q 6 H [MAR Hold due to Transfer] insulin glargine 40 Units injection (long acting) (LANTUS) 40 Units SUBCUTANEOUS BID [MAR Hold due to Transfer] sertraline 25 mg tab(s) (ZOLOFT) 25 mg ORAL DAILY [MAR Hold due to Transfer] albuterol 2.5 mg /3 mL (0.083 %) 2.5 mg (PROVENTIL) 2.5 mg INHALATION q 4 H PRN [MAR Hold due to Transfer] promethazine 12.5 mg tab(s) (PHENERGAN) 12.5 mg ORAL q 6 H PRN [MAR Hold due to Transfer] aspirin, enteric coated 81 mg tab(s) (ASPIRIN, ENTERIC COATED) 81 mg ORAL DAILY [MAR Hold due to Transfer] nitroglycerin sublingual 0.4 mg tab(s) (NITROQUICK) 0.4 mg SUBLINGUAL q 5 MIN PRN [MAR Hold due to Transfer] dextrose 40 % 15 g 15 g ORAL PRN [MAR Hold due to Transfer] glucagon 1 mg [...] has anginal chest pain - transfer to [facility] for viability study with MRI or PET, and consider CABG with BRUCE-LAD if there is evidence of viability - continue aspirin and statin - continue ACEI - continue metoprolol - smoking cessation ? SIGNATURE: Jevon Sherman MD PATIENT NAME: Trenton Jackson DATE: December 04, 2017 TIME: 2:26 PM PAGER/CONTACT #: Normal [facility] Comp Metabolic Panelon 12-04 Albumin mass conc 3.3 g/dL Low 3.9-4.9 [facility] Comment on above: Performed By: #### C BCDIF, PT, PTT, CMP #### [facility] [address] [place] [address] ALP enzyme act/vol 77 U/L Normal 32-117 [facility] Comment on above: Performed By: #### C BCDIF, PT, PTT, CMP #### [facility] [address] [place] [address] ALT enzyme act/vol 13 U/L Normal 7-38 [facility] Comment on above: Performed By: #### C BCDIF, PT, PTT, CMP #### [facility] [address] [place] [address] Anion gap molar conc 10 mmol/L Normal 9-18 [facility] Comment on above: Performed By: #### C BCDIF, PT, PTT, CMP #### [facility] [address] [place] [address] AST enzyme act/vol 15 U/L Normal 13-35 [facility] Comment on above: Performed By: #### C BCDIF, PT, PTT, CMP #### [facility] [address] [place] [address] Bilirubin mass conc 0.4 mg/dL Normal 0.2-1.3 [facility] Comment on above: Performed By: #### C BCDIF, PT, PTT, CMP #### [facility] [address] [phone] Calcium mass conc 8.7 mg/dL Normal 8.5-10.2 [facility] Comment on above: Performed By: #### C BCDIF, PT, PTT, CMP #### [facility] [address] Chloride molar conc 101 mmol/L Normal 97-105 [facility] Comment on above: Performed By: #### C BCDIF, PT, PTT, CMP #### [facility] [address] [address] CO2 molar conc 29 mmol/L Normal 22-30 [facility] Comment on above: Performed By: #### C BCDIF, PT, PTT, CMP #### [facility] [address] [address] Creatinine mass conc 0.66 mg/dL Normal 0.58-0.96 [facility] Comment on above: Performed By: #### C BCDIF, PT, PTT, CMP #### [facility] [address] [address] eGFR- Amer. >60 Normal [facility] Comment on above: Performed By: #### C BCDIF, PT, PTT, CMP #### [facility] [address] [place] [address] GFR/1.73 sq M predicted among non-blacks MDRD vol rate/area (S/P/Bld) mL/min/{1.73_m2} Normal [facility] Comment on above: Result Comment: eGFR (Estimated [...] #### C BCDIF, PT, PTT, CMP #### [facility] [address] [address] Glucose mass conc 88 mg/dL Normal 74-99 [facility] Comment on above: Result Comment: The [place] [employer] (ADA) provides guidance for cutoff [...] Standards of Medical Care in Diabetes 2016, [place] [employer]. Diabetes Care. 2016.39(Suppl 1). Performed By: #### C BCDIF, PT, PTT, CMP #### [facility] [address] [place] [address] Potassium molar conc 4.1 mmol/L Normal 3.7-5.1 [facility] Comment on above: Performed By: #### C BCDIF, PT, PTT, CMP #### [facility] [address] [address] Protein mass conc 5.9 g/dL Low 6.3-8.0 [facility] Comment on above: Performed By: #### C BCDIF, PT, PTT, CMP #### [facility] [address] [address] Sodium molar conc 140 mmol/L Normal 136-144 [facility] Comment on above: Performed By: #### C BCDIF, PT, PTT, CMP #### [facility] [address] [place], [place] [id number] Urea nitrogen mass conc 12 mg/dL Normal 7-21 [facility] Comment on above: Performed By: #### C BCDIF, PT, PTT, CMP #### [facility] [address] [place], [place] [id number] Magnesiumon 12-04-2017 Magnesium mass conc 1.8 mg/dL Normal 1.7-2.3 [facility] Comment on above: Performed By: #### C BCDIF, PT, PTT, CMP #### [facility] [address] [facility] [phone] NURSING PROGon 12-04-2017 Protein mass conc HNO ID: [id number] Author: Patricio AgudeloRn) CHAYITO Tate Service: Nursing Author Type: Registered Nurse Type: Nursing Progress Note Filed: 12/04/2017 10:43 PM Note Text: Nursing Progress Note Patient Name: Trenton Jackson Patient Location: [facility]/[id number] Daily Note: 1900: Assumed care of pt. Pt observed sleeping in bed. Call light within reach. 2100: Pt resting in bed. Still waiting for transfer. High anxiety due to transfer and medical procedures. Call light within reach. 0: Transfer arrived. Pt crying and states her anxiety is high. Pt given medicine for anxiety per MAR to assist with transfer. This note was completed by: Patricio Tate RN [facility] Protein mass conc HNO ID: [id number] Author: Melissa AgudeloRn) CHAYITO Jeffries Service: Nursing Author Type: Registered Nurse Type: Nursing Progress Note Filed: 12/04/2017 3:11 PM Note Text: Nursing Progress Note Patient Name: Trenton Jackson [facility] Final air removed from right radial site. No bleeding noted. Bandaid applied. Report called to Jazzmine STRATTON on 3S. Pt transferred to floor on bed accomp by staff in stable cond. This note was completed by: Melissa Jeffries RN [facility] Protein mass conc HNO ID: [id number] Author: Brett AgudeloGonzalo Castorena RN Service: Nursing Author Type: Registered Nurse Type: Nursing Progress Note Filed: 12/04/2017 2:18 PM Note Text: Pt eating and drinking denies any complaints at this time. @1417 Report to Melissa STRATTON. 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 [...] medsternal chest pain 1827: Call placed to Hanh Montes to give report . All questions answered. Pt aware of transfer time. Telemetry SR. This note was completed by: Jazzmine Galvan RN [facility] PROCEDUREon 12-04-2017 Protein mass conc HNO ID: [id number] Author: Jevon Sherman Service: Clinical Cardiology Author Type: Physician Type: Procedures Filed: 12/10/2017 1:25 AM Note Text: [facility]- Cardiac Catheterization TRENTON JACKSON : 1970 AGE: 47 SEX: F ACCTNUM: [id number] HOSP [facility]: [employer] LOCATION: [address] ATTENDING PHYSICIAN: DEX HANDY SURGEON: Jevon Sherman [...] PROCEDURE: The patient was brought to the company laborer, and she had mild chest pain [...] sheath, and this was upsized to a 5-Romanian short sheath. We then advanced a Acme catheter over a Wholey wire to the [...] 5. The patient will be transferred to [facility] for assessment of myocardial viability and consideration of revascularization of the LAD possibly with bypass grafting. Jevon Sherman M.D. Cardiovascular Medicine [id number] [facility] PROGRESSon 12-04-2017 Protein mass conc HNO ID: [id number] Author: Jevon Sherman Service: Clinical Cardiology Author Type: Physician Type: Progress Notes Filed: 12/04/2017 11:15 AM Note Text: CARDIAC CATHETERIZATION RISK ASSESSMENT PATIENT NAME: Trenton Jacskon SERVICE DATE: 12/04/2017 SERVICE TIME: 11:14 AM [...] TIME: 11:14 AM The following are the [facility] Criteria for High Risk Catheterization: Patients with high-risk conditions listed above may require emergency catheter-based therapeutic interventions or open heart surgery. Hence, they shall undergo cardiac catheterization only in a catheterization laboratory that has open heart surgical support available on-site, (i.e., accessible from the catheterization laboratory or by [facility]). [facility] CASE MANAGEM HNO ID: [id number] Author: Iqra Solano) CHAYITO Webster Service: Case [...] 03, 2017 TIME: 11:44 AM PAGER/CONTACT #: [phone] Normal [facility] CBCon 12-03-2017 Erythrocyte distribution width Ratio (RBC) 13.2 % Normal 11.5-15.0 [facility] Comment on above: Performed By: #### C BCDIF, PT, PTT, CMP #### [facility] [address] [facility] [phone] Hematocrit Volume Fraction (Bld) 46.0 % Normal 36.0-46.0 [facility] Comment on above: Performed By: #### C BCDIF, PT, PTT, CMP #### [facility] [address] [place] [address] Hemoglobin mass conc (Bld) 15.3 g/dL Normal 11.5-15.5 [facility] Comment on above: Performed By: #### C BCDIF, PT, PTT, CMP #### [facility] [address] [facility] [phone] MCH Entitic mass (RBC) 27.4 pG Normal 26.0-34.0 [facility] Comment on above: Performed By: #### C BCDIF, PT, PTT, CMP #### [facility] [address] [place] [address] MCHC mass conc (RBC) 33.3 g/dL Normal 30.5-36.0 [facility] Comment on above: Performed By: #### C BCDIF, PT, PTT, CMP #### [facility] [address] [facility] [phone] MCV Entitic volume (RBC) 82.4 fL Normal 80.0-100.0 [facility] Comment on above: Performed By: #### C BCDIF, PT, PTT, CMP #### [facility] [address] [place] [address] Platelet mean volume Entitic volume (Bld) 10.1 fL Normal 9.0-12.7 [facility] Comment on above: Performed By: #### C BCDIF, PT, PTT, CMP #### [facility] [address] [facility] [phone] Platelets #/vol (Bld) 224 10*3/uL Normal 150-400 [facility] Comment on above: Performed By: #### C BCDIF, PT, PTT, CMP #### [facility] [address] [facility] [phone] RBC #/vol (Bld) 5.58 10*6/uL High 3.90-5.20 [facility] Comment on above: Performed By: #### C BCDIF, PT, PTT, CMP #### [facility] [address] [facility] [phone] WBC #/vol (Bld) 9.13 10*3/uL Normal 3.70-11.00 [facility] Comment on above: Performed By: #### C BCDIF, PT, PTT, CMP #### [facility] [address] [facility] [phone] CONSULT PROGon 12-03-2017 Protein mass conc HNO ID: [id number] Author: Jevon Sherman Service: Clinical Cardiology Author [...] 2017 TIME: 5:25 PM PAGER/CONTACT #: Normal [facility] Comp Metabolic Panelon 12-03 Albumin mass conc 3.3 g/dL Low 3.9-4.9 [facility] Comment on above: Performed By: #### C BCDIF, PT, PTT, CMP #### [facility] [address] [address] ALP enzyme act/vol 83 U/L Normal 32-117 [facility] Comment on above: Performed By: #### C BCDIF, PT, PTT, CMP #### [facility] [address] [address] ALT enzyme act/vol 13 U/L Normal 7-38 [facility] Comment on above: Performed By: #### C BCDIF, PT, PTT, CMP #### [facility] [address] [address] Anion gap molar conc 10 mmol/L Normal 9-18 [facility] Comment on above: Performed By: #### C BCDIF, PT, PTT, CMP #### [facility] [address] [address] AST enzyme act/vol 15 U/L Normal 13-35 [facility] Comment on above: Performed By: #### C BCDIF, PT, PTT, CMP #### [facility] [address] [place] [address] Bilirubin mass conc 0.5 mg/dL Normal 0.2-1.3 [facility] Comment on above: Performed By: #### C BCDIF, PT, PTT, CMP #### [facility] [address] [place] [address] Calcium mass conc 9.0 mg/dL Normal 8.5-10.2 [facility] Comment on above: Performed By: #### C BCDIF, PT, PTT, CMP #### [facility] [address] [place] [address] Chloride molar conc 99 mmol/L Normal 97-105 [facility] Comment on above: Performed By: #### C BCDIF, PT, PTT, CMP #### [facility] [address] [place] [address] CO2 molar conc 30 mmol/L Normal 22-30 [facility] Comment on above: Performed By: #### C BCDIF, PT, PTT, CMP #### [facility] [address] [place] [address] Creatinine mass conc 0.70 mg/dL Normal 0.58-0.96 [facility] Comment on above: Performed By: #### C BCDIF, PT, PTT, CMP #### [facility] [address] [place] [address] eGFR- Amer. >60 Normal [facility] Comment on above: Performed By: #### C BCDIF, PT, PTT, CMP #### [facility] [address] [place] [address] GFR/1.73 sq M predicted among non-blacks MDRD vol rate/area (S/P/Bld) mL/min/{1.73_m2} Normal [facility] Comment on above: Result Comment: eGFR (Estimated [...] #### C BCDIF, PT, PTT, CMP #### [facility] [address] [place] [address] Glucose mass conc 76 mg/dL Normal 74-99 [facility] Comment on above: Result Comment: The [place] Diabetes [employer] (ADA) provides guidance for cutoff [...] Standards of Medical Care in Diabetes 2016, [place] [employer]. Diabetes Care. 2016.39(Suppl 1). Performed By: #### C BCDIF, PT, PTT, CMP #### [facility] [address] [place] [address] Potassium molar conc 4.3 mmol/L Normal 3.7-5.1 [facility] Comment on above: Performed By: #### C BCDIF, PT, PTT, CMP #### [facility] [address] [place] [address] Protein mass conc 6.0 g/dL Low 6.3-8.0 [facility] Comment on above: Performed By: #### C BCDIF, PT, PTT, CMP #### [facility] [address] [place] [address] Sodium molar conc 139 mmol/L Normal 136-144 [facility] Comment on above: Performed By: #### C BCDIF, PT, PTT, CMP #### [facility] [address] [place] [address] Urea nitrogen mass conc 11 mg/dL Normal 7-21 M [facility] Comment on above: Performed By: #### C BCDIF, PT, PTT, CMP #### [facility] [address] [place] [address] Magnesiumon 12-03-2017 Magnesium mass conc 1.8 mg/dL Normal 1.7-2.3 [facility] Comment on above: Performed By: #### C BCDIF, PT, PTT, CMP #### [facility] [address] [facility] [phone] NM CARDIAC PERF STRESS/EXERC ISEon 12-03-2017 NM [...] 60 minutes later. See administered doses below. [facility] Date of service: 12/03/2017 11:12:42 AM Indication: [...] ST segment response. Stress complications: none. Final Control Tower Operator: JEREMIAS Transcribe Date/Time: Dec 03 2017 11:12A Dictated by : JEVON SHERMAN MD This examination was interpreted and the report reviewed and electronically signed by: JEVON SHERMAN MD on Dec 03 2017 5:11PM EST [id number] [facility] NUCLEAR STRESS LEXISCAN (CAR D)on 12-03-2017 NUCLEAR STRESS LEXISCAN (CARD) NAME : TRENTON JACKSON PID : [id number] : 1970 Gender : Female Race : ORD : [id number] Procedure Date : Dec 03 2017 12:15:58 Edit Date : Dec 17 2017 14:02:26 Conclusions:PLEASE REFER TO IMAGING SECTION IN [facility] FOR COMPLETE INTERPRETATION OF STRESS [...] Protocol Test Reason : Chest Pain Location :[id number] Overread By : JEVON SHERMAN M.D. Edited By : Violet Mcnulty Referred By : , [facility] NUCLEAR STRESS TEST EXERCISE (CARD)on 12-03-2017 NUCLEAR STRESS TEST EXERCISE (CARD) NAME : TRENTON JACKSON PID : [id number] : 1970 Gender : Female Race : ORD : [id number] Procedure Date : Dec 03 2017 11:56:57 Edit Date : Dec 17 2017 14:02:19 Conclusions:PLEASE REFER TO IMAGING SECTION IN [facility] FOR COMPLETE INTERPRETATION OF STRESS [...] Treadmill Test Reason : Chest Pain Location :[id number] Overread By : JEVON SHERMAN M.D. Edited By : Violet Mcnulty Referred By : , Acquired by : [facility] NURSING PROGon 12-03-2017 Protein mass conc HNO ID: [id number] Author: Barb AgudeloRn) CHAYITO Ramey Service: (none) Author Type: Registered Nurse Type: Nursing Progress Note Filed: 12/03/2017 9:59 PM Note Text: Nursing Progress Note Patient Name: Trenton Jackson Patient Location: [facility]4/WF-[id number] Daily Note: Namrata- Dr Nava updated on pt medication request and HS blood sugar. New orders received. This note was completed by: Barb Ramey RN [facility] Protein mass conc HNO ID: [id number] Author: Jazzmine (Rn) CHAYITO Galvan Service: Nursing Author Type: Registered Nurse Type: Nursing Progress Note Filed: 12/03/2017 6:59 PM Note Text: Nursing Progress Note Patient Name: Trenton Jackson [facility]-3Q-5216-2 Daily Note: 0700: Assumed care of pt. [...] note was completed by: Jazzmine Galvan RN [facility] PROCEDUREon 12-03-2017 Protein mass conc HNO ID: [id number] Author: Jevon Sherman Service: Clinical Cardiology Author Type: Physician Type: Procedures Filed: 12/10/2017 1:16 AM Note Text: [facility]- Stress Test TRENTON JACKSON : 1970 AGE: 47 SEX: F [id number] [employer] LOCATION: [id number] ATTENDING PHYSICIAN: Dex Fernandez M.D. DATE OF [...] nuclear imaging. Jevon Sherman M.D. Cardiovascular Medicine [id number] Normal [facility] PROGRESSon 12-03-2017 Protein mass conc HNO ID: [id number] Author: Dex Handy Service: Hospital Medicine Author Type: Physician Type: Progress Notes Filed: 12/03/2017 9:03 PM Note Text: HOSPITAL MEDICINE PROGRESS NOTE Name: Trenton Jackson SERVICE DATE: 12/03/2017 SERVICE TIME: 8:36 PM LOCATION / ROOM: [facility]4/OF-[id number] Hospital Medicine/Primary Attending: Dex Handy MD NIGHT COVERAGE BETWEEN 5.30P-7.30A Page [id number] ASSESSMENT AND PLAN Active Hospital Problems Diagnosis [...] Patient might need to be transferred to [facility] for further work up - pending [...] mg SUBLINGUAL q 5 MIN PRN Rafy Rashid (Pa-C) Mao III 0.4 mg at 11/30/17 1912 dicyclomine 20 mg tab(s) (BENTYL) 20 mg ORAL q 6 H [employer] [place] 20 mg at 12/03/17 1523 insulin glargine 40 Units injection (long acting) (LANTUS) 40 Units SUBCUTANEOUS BID [employer] [place] 40 Units at 12/03/17 1523 sertraline 25 mg tab(s) (ZOLOFT) 25 mg ORAL DAILY [employer] [place] 25 mg at 12/03/17 0853 albuterol 2.5 mg /3 mL (0.083 %) 2.5 mg (PROVENTIL) 2.5 mg INHALATION q 4 H PRN [employer] [place] promethazine 12.5 mg tab(s) (PHENERGAN) 12.5 mg ORAL q 6 H PRN [employer] [place] 12.5 mg at 12/03/17 1550 aspirin, enteric coated 81 mg tab(s) (ASPIRIN, ENTERIC COATED) 81 mg ORAL DAILY [employer] [place] 81 mg at 12/03/17 0853 nitroglycerin sublingual 0.4 mg tab(s) (NITROQUICK) 0.4 mg SUBLINGUAL q 5 MIN PRN [employer] [place] dextrose 40 % 15 g 15 g ORAL PRN [employer] [place] Or glucagon 1 mg injection (GLUCAGEN) 1 mg INTRAMUSCULAR PRN [employer] [place] Or dextrose 50% in water 25 mL syringe 12.5 g INTRAVENOUS PRN [employer] [place] insulin lispro injection (rapid acting) (HumaLOG) SUBCUTANEOUS w MEALS [employer] [place] 3 Units at 12/03/17 1839 insulin lispro injection (rapid acting) (HumaLOG) SUBCUTANEOUS AT BEDTIME [employer] [place] 2 Units at 12/02/172012 ALPRAZolam 0.5 mg tab(s) (XANAX) 0.5 mg ORAL BID PRN [employer] [place] 0.5 mg at 12/03/17 0640 OBJECTIVE PHYSICAL [...] December 03, 2017 TIME: 8:36 PM Normal [facility] Sed Rate [place]on 2017 Sed Rate [facility] Unable to assay. No specimen received. Normal 0-20 [facility] Comment on above: Performed By: #### C BCDIF, PT, PTT, CMP #### [facility] [address] [facility] [phone] C-Reactive Proteinon 018 CRP mass conc 0.2 mg/dL Normal <0.9 [facility] Comment on above: Performed By: #### C BCDIF, PT, PTT, CMP #### [facility] [address] [facility] [phone] CBCon 12-02-2017 Erythrocyte distribution width Ratio (RBC) 13.4 % Normal 11.5-15.0 [facility] Comment on above: Performed By: #### C BCDIF, PT, PTT, CMP #### [facility] [address] [place] [address] Hematocrit Volume Fraction (Bld) 48.7 % High 36.0-46.0 [facility] Comment on above: Performed By: #### C BCDIF, PT, PTT, CMP #### [facility] [address] [facility] [phone] Hemoglobin mass conc (Bld) 16.9 g/dL High 11.5-15.5 [facility] Comment on above: Performed By: #### C BCDIF, PT, PTT, CMP #### [facility] [address] [phone] MCH Entitic mass (RBC) 27.6 pG Normal 26.0-34.0 [facility] Comment on above: Performed By: #### C BCDIF, PT, PTT, CMP #### [facility] [address] [place], [place] [address] MCHC mass conc (RBC) 34.7 g/dL Normal 30.5-36.0 [facility] Comment on above: Performed By: #### C BCDIF, PT, PTT, CMP #### [facility] [address] [place] [address] MCV Entitic volume (RBC) 79.4 fL Low 80.0-100.0 [facility] Comment on above: Performed By: #### C BCDIF, PT, PTT, CMP #### [facility] [address] [place] [address] Platelet mean volume Entitic volume (Bld) 10.7 fL Normal 9.0-12.7 [facility] Comment on above: Performed By: #### C BCDIF, PT, PTT, CMP #### [facility] [address] [place] [address] Platelets #/vol (Bld) 215 10*3/uL Normal 150-400 [facility] Comment on above: Performed By: #### C BCDIF, PT, PTT, CMP #### [facility] [address] [place] [address] RBC #/vol (Bld) 6.13 10*6/uL High 3.90-5.20 [facility] Comment on above: Performed By: #### C BCDIF, PT, PTT, CMP #### [facility] [address] [place] [address] WBC #/vol (Bld) 12.44 10*3/uL High 3.70-11.00 [facility] Comment on above: Performed By: #### C BCDIF, PT, PTT, CMP #### [facility] 16 [address] [place], [place] [id number] CONSULT PROGon 12-02-2017 Protein mass conc HNO ID: [id number] Author: Jevon Sherman Service: Clinical Cardiology Author [...] 2017 TIME: 4:49 PM PAGER/CONTACT #: Normal [facility] Comp Metabolic Panelon 12-02 Albumin mass conc 3.2 g/dL Low 3.9-4.9 [facility] Comment on above: Performed By: #### C BCDIF, PT, PTT, CMP #### [facility] [address] [place] [address] ALP enzyme act/vol 92 U/L Normal 32-117 [facility] Comment on above: Performed By: #### C BCDIF, PT, PTT, CMP #### [facility] [address] [place] [address] ALT enzyme act/vol 14 U/L Normal 7-38 [facility] Comment on above: Performed By: #### C BCDIF, PT, PTT, CMP #### [facility] [address] [place] [address] Anion gap molar conc 13 mmol/L Normal 9-18 [facility] Comment on above: Performed By: #### C BCDIF, PT, PTT, CMP #### [facility] [address] [place], [place] [phone] AST enzyme act/vol 23 U/L Normal 13-35 [facility] Comment on above: Result Comment: Resu lts may be falsely increased due to interference by hemolysis. Suggest reorder as clinically indicated. Performed By: #### C BCDIF, PT, PTT, CMP #### [facility] [address] [place] [address] Bilirubin mass conc 0.7 mg/dL Normal 0.2-1.3 [facility] Comment on above: Performed By: #### C BCDIF, PT, PTT, CMP #### [facility] [address] [place] [address] Calcium mass conc 9.2 mg/dL Normal 8.5-10.2 [facility] Comment on above: Performed By: #### C BCDIF, PT, PTT, CMP #### [facility] [address] [place] [address] Chloride molar conc 99 mmol/L Normal 97-105 [facility] Comment on above: Performed By: #### C BCDIF, PT, PTT, CMP #### [facility] [address] [place] [address] CO2 molar conc 23 mmol/L Normal 22-30 [facility] Comment on above: Performed By: #### C BCDIF, PT, PTT, CMP #### [facility] [address] [place] [address] Creatinine mass conc 0.61 mg/dL Normal 0.58-0.96 [facility] Comment on above: Performed By: #### C BCDIF, PT, PTT, CMP #### [facility] [address] [place] [address] eGFR- Amer. >60 Normal [facility] Comment on above: Performed By: #### C BCDIF, PT, PTT, CMP #### [facility] [address] [place] [address] GFR/1.73 sq M predicted among non-blacks MDRD vol rate/area (S/P/Bld) mL/min/{1.73_m2} Normal [facility] Comment on above: Result Comment: eGFR (Estimated [...] #### C BCDIF, PT, PTT, CMP #### [facility] [address] [place] [address] Glucose mass conc 185 mg/dL High 74-99 [facility] Comment on above: Result Comment: The [place] [employer] Association (ADA) provides guidance for cutoff [...] Standards of Medical Care in Diabetes 2016, [place] [employer]. Diabetes Care. 2016.39(Suppl 1). Performed By: #### C BCDIF, PT, PTT, CMP #### [facility] [address] [place] [address] Potassium molar conc 4.8 mmol/L Normal 3.7-5.1 [facility] Comment on above: Performed By: #### C BCDIF, PT, PTT, CMP #### [facility] [address] [place], [place] [id number] Protein mass conc 6.2 g/dL Low 6.3-8.0 [facility] Comment on above: Performed By: #### C BCDIF, PT, PTT, CMP #### [facility] [address] [place], [place] [phone] Sodium molar conc 135 mmol/L Low 136-144 [facility] Comment on above: Performed By: #### C BCDIF, PT, PTT, CMP #### [facility] [address] [place] [address] Urea nitrogen mass conc 8 mg/dL Normal 7-21 [facility] Comment on above: Performed By: #### C BCDIF, PT, PTT, CMP #### [facility] [address] [place] [address] Magnesiumon 12-02-2017 Magnesium mass conc 1.9 mg/dL Normal 1.7-2.3 [facility] Comment on above: Performed By: #### C BCDIF, PT, PTT, CMP #### [facility] [address] [facility] [phone] NURSING PROGon 12-02-2017 Protein mass conc HNO ID: [id number] Author: Flora (Rn) Avery, RN Service: (none) Author Type: Registered Nurse Type: Nursing Progress Note Filed: 12/03/2017 4:25 AM Note Text: Nursing Progress Note Patient Name: Trenton Jackson Patient Location: [facility]/[id number] Daily Note:2010-Pt on phone, requesting pain med, for pain [...] tele This note was completed by: Flora Varela, CHAYITO [facility] Protein mass conc HNO ID: [id number] Author: Sara AgudeloRn) Elizabeth, RN Service: Nursing Author Type: Registered Nurse Type: Nursing Progress Note Filed: 12/02/2017 6:26 PM Note Text: Nursing Progress Note Patient Name: Trenton Jackson Patient Location: [facility]/[id number]- Daily Note:1555 - Assumed care of pt. [...] note was completed by: Sara Johnson RN [facility] Protein mass conc HNO ID: [id number] Author: Jonna (Rn) CHAYITO Boothe Service: Nursing Author Type: Registered Nurse Type: Nursing Progress Note Filed: 12/02/2017 2:09 PM Note Text: Nursing Progress Note Patient Name: Trenton Jackson Patient Location: [facility]/[id number] Daily Note: 0715: Assumed care of patient. [...] note was completed by: Jonna Boothe RN [facility] Protein mass conc HNO ID: [id number] Author: Patricio Solano) CHAYITO Tate Service: Nursing Author Type: Registered Nurse Type: Nursing Progress Note Filed: 12/02/2017 4:59 AM Note Text: Nursing Progress Note Patient Name: Trenton Jackson Patient Location: [facility]/LF-[id number] Event(s) / Intervention Note: The patient was [...] note was completed by: Patricio Tate RN [facility] PROGRESSon 12-02-2017 Protein mass conc HNO ID: [id number] Author: Lisa Bocanegra Service: Hospital Medicine Author [...] 2156 -- 11/30/17 2200 pneumatic compression stockings (pa,oh) VTE Prophylaxis: VTE prophylaxis appropriate SIGNATURE: Lisa Bocanegra MD PATIENT NAME: Trenton Jackson DATE: December 02, 2017 TIME: 1:07 PM PAGER: [phone] Normal [facility] Procalcitoninon 12-02-2017 Protein mass conc g/dL Normal <0.09 [facility] Comment on above: Result Comment: For a guided interpretation of test results, please visit the Change in Procalcitonin Calculator, [email or web address]. Performed By: #### C BCDIF, PT, PTT, CMP #### [facility] [address] [facility] [phone] Sed Rate Westergrenon 2017 Sed Rate Westergren Unable to assay. Spe cimen grossly hemolyzed. Specimen may have been stored or transported frozen. Normal 0-20 [facility] Comment on above: Result Comment: Acco unt Credited Called to RW [id number] 12.02.17 NB Performed By: #### C BCDIF, PT, PTT, CMP #### [facility] [address] [facility] [phone] CASE MGT INIT Ana 2017 CASE MGT INIT GAVIN HNO ID: [id number] Author: Bety oLzada (Rn) CHAYITO Dempsey Service: Case Management Author Type: Registered Nurse Type: Care Mgt Initial Assessment Filed: 12/01/2017 9:52 AM Note Text: CARE MANAGEMENT: ASSESSMENT AND DISCHARGE PLAN SERVICE DATE: 12/01/2017 SERVICE TIME: 9:48 AM PRIMARY CARE PHYSICIAN: Uziel Conteh MD Confirmed. Likes am any day for follow ups. 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 No Advance Directive: Current Advance Directive: None Election Supervisor Assisted with AD Completion: Yes Action: Education [...] None Has the Patient Been in a Nursing Home Facility in the Past 30 days? No SOCIAL: Living Arrangement: Home Lives With: Spouse and two children Financial Resources: Employed: [employer] Primary Contact: Extended Emergency Contact Information Primary Emergency Contact: Curry Jackson Jr Address: [address] [place] [address] [facility] Mobile Relation: Spouse Secondary Emergency Contact: Rebecca Dueñas Address: [place] [address] [facility] Relation: Mother Supportive: Yes Other Important Patient [...] 0 I feel financially burdened by my gwr-up-hsifml expenses for my prescription medication: Disagree somewhat - 0 Patient is categorized as low risk < 2 Are you interested in bedside delivery of your medications? Yes , uses [facility] [place] [facility] Concerns: In the Last Month, Have [...] 01, 2017 TIME: 9:48 AM PAGER/CONTACT #: [phone] [facility] CONSULTon 12-01-2017 CONSULT HNO ID: [id number] Author: Jevon Sherman Service: Clinical Cardiology Author [...] associated with exertion. In the ER at [place] yesterday she had no ischemic changes on ECG, NSR, and negative Tn. She has a history of DM, is an active smoker, and had an abnormal echocardiogram last year showing LVEF 30% with an LAD territory wall motion abnormality with a dyskinetic apex. She has not seen a miller distillery about this problem and was unaware of [...] 97 18 97 % - - 11/30/17 222 135/93 36.9 ?C (98.4 ?F) Oral 94 [...] 72 Hour Labs: Recent Labs 12/01/17 0755 11/30/17 1845 11/30/17 1500 CK -- -- 41* -- TROPT [...] 2017 TIME: 10:17 AM PAGER/CONTACT #: Normal [facility] Lipid Panel, Basicon 018 Cholesterol in HDL mass conc 31 mg/dL Low >39 [facility] Comment on above: Result Comment: 40-5 9 mg/dL, Acceptable >59 mg/dL, High: Negative risk factor for coronary heart disease <40 mg/dL, Low: Positive risk factor for coronary heart disease Performed By: #### C BCDIF, PT, PTT, CMP #### [facility] [address] [facility] [phone] Cholesterol in LDL mass conc 110 mg/dL High <100 [facility] Comment on above: Result Comment: <100 mg/dL, Optimal 100-129 mg/dL, Near optimal/above optimal 130-159 mg/dL, Borderline high 160-189 mg/dL, High >189 mg/dL, Very high Secondary prevention optimal LDL Cholesterol levels are recommended to be < 70 mg/dL Performed By: #### C BCDIF, PT, PTT, CMP #### [facility] [address] [facility] [phone] Cholesterol mass conc 177 mg/dL Normal <200 [facility] Comment on above: Result Comment: <200 mg/dL, Desirable 200-239 mg/dL, Borderline high >239 mg/dL, High Performed By: #### C BCDIF, PT, PTT, CMP #### [facility] [address] [facility] [phone] Fasting Time Unknown Normal [facility] Comment on above: Performed By: #### C BCDIF, PT, PTT, CMP #### [facility] [address] [place] [address] LDL:HDL Ratio 3.55 High <2.54 [facility] Comment on above: Result Comment: Refe cinda: 1. National Cholesterol Education Program ATP III Guideline At-A-Glance Quick Desk Reference: National Heart, Lung, and Blood [place]. National Institutes of Health. 2001: NIH Publication No. 01-3305. 2. An International Atherosclerosis Society position paper: global recommendations for the management of dyslipidemia: executive summary, Atherosclerosis. 2014: 232(2):410-413. Performed By: #### C BCDIF, PT, PTT, CMP #### [facility] [address] [place] [address] Non HDL Cholesterol 146 mg/dL High <130 [facility] Comment on above: Result Comment: <130 mg/dL, Optimal 130-159 mg/dL, Near optimal/above optimal 160-189 mg/dL, Borderline high 190-219 mg/dL, High >219 mg/dL, Very high Secondary prevention optimal non HDL Cholesterol levels are recommended to be < 100 mg/dL Performed By: #### C BCDIF, PT, PTT, CMP #### [facility] [address] [place] [address] TC:HDL Ratio 5.71 High <5.10 [facility] Comment on above: Performed By: #### C BCDIF, PT, PTT, CMP #### [facility] [address] [place] [address] Triglyceride mass conc 179 mg/dL High <150 [facility] Comment on above: Result Comment: <150 mg/dL, Normal 150-199 mg/dL, Borderline high 200-499 mg/dL, High >499 mg/dL, Very high Performed By: #### C BCDIF, PT, PTT, CMP #### [facility] [address] [place] [address] VLDL Cholesterol 36 mg/dL High <30 [facility] Comment on above: Performed By: #### C BCDIF, PT, PTT, CMP #### [facility] [address] [place] [address] NURSING PROGon 12-01-2017 Protein mass conc HNO ID: [id number] Author: Patricio AgudeloRn) Lea, CHAYITO Service: Nursing Author Type: Registered Nurse Type: Nursing Progress Note Filed: 12/02/2017 6:32 AM Note Text: Nursing Progress Note Patient Name: Trenton Jackson Patient Location: [place]/BZ-[id number] Daily Note: 1915: Assumed care of pt. [...] observed sweating profusely. Glucose 84, normally 200's. [place] juice and johnson crackers given. Glucose up to 149. Pt feeling slightly better. Will continue to monitor. 0500: Pt observed sleeping. Unable to obtain oral or axillary temp to this point. Will obtain rectal temp. Call light within reach. This note was completed by: Patricio Tate, RN [facility] Protein mass conc HNO ID: [id number] Author: Jonna AgudeloRn) CHAYITO Boothe Service: Nursing Author Type: Registered Nurse Type: Nursing Progress Note Filed: 12/01/2017 5:58 PM Note Text: Nursing Progress Note Patient Name: Trenton Jackson Patient Location: [id number]- Daily Note: 0715: Assumed care of patient. [...] c/o 8/10 chest pain. Will medicate per AUG. Pt requested to have Lidocaine patch removed. This note was completed by: Jonna Boothe RN [facility] Protein mass conc HNO ID: [id number] Author: Patricio (Rn) CHAYITO Tate Service: Nursing Author Type: Registered Nurse Type: Nursing Progress Note Filed: 12/01/2017 5:01 AM Note Text: Nursing Progress Note Patient Name: Trenton Jackson Patient Location: [facility]/WS-[id number]-5507-2 Daily Note: 2200: Assumed care of pt. [...] Pt anxious about health. Given meds per AUG. 0300: Pt observed sleeping. 0500: Pt observed sleeping. This note was completed by: Patricio Tate RN [facility] PROGRESSon 12-01-2017 Protein mass conc HNO ID: [id number] Author: Lisa Bocanegra Service: Hospital Medicine Author [...] December 01, 2017 TIME: 2:46 PM PAGER: [phone] Normal [facility] Troponin Ton 12-01-2017 Troponin T.cardiac mass conc ug/L Normal 0.000-0.[address] [place] [address] Comment on above: Performed By: #### T NT ####[facility] [phone] Troponin T.cardiac mass conc ug/L Normal 0.000-0.[address] [place] [address] Comment on above: Performed By: #### T NT ####[facility] [id number] [place] [address] APTTon 11-30-2017 aPTT Coag time (Bld) 26.7 s Normal 23.0-32.4 [facility] Comment on above: Result Comment: [...] laboratory APTT reagent in use throughout the [facility]. Performed By: #### C BCDIF, PT, PTT, CMP #### [facility] [address] CBC and Differentialon 11-30 Abs Baso 0.05 k/uL Normal <0.11 [facility] Comment on above: Performed By: #### C BCDIF, PT, PTT, CMP #### [facility] [address] [place] [address] Abs [place] 0.56 k/uL Normal <0.87 [facility] Comment on above: Performed By: #### C BCDIF, PT, PTT, CMP #### [facility] [address] [place] [address] Abs Neut 5.45 k/uL Normal 1.45-7.50 [facility] Comment on above: Performed By: #### C BCDIF, PT, PTT, CMP #### [facility] [address] [place] [address] Basophils/100 WBC (Bld) 0.6 % Normal [facility] Comment on above: Performed By: #### C BCDIF, PT, PTT, CMP #### [facility] [address] [place] [address] Eosinophils #/vol (Bld) 0.13 10*3/uL Normal <0.46 [facility] Comment on above: Performed By: #### C BCDIF, PT, PTT, CMP #### [facility] [address] [place] [address] Eosinophils/100 WBC (Bld) 1.4 % Normal [facility] Comment on above: Performed By: #### C BCDIF, PT, PTT, CMP #### [facility] [address] [place] [address] Erythrocyte distribution width Ratio (RBC) 13.3 % Normal 11.5-15.0 [facility] Comment on above: Performed By: #### C BCDIF, PT, PTT, CMP #### [facility] [address] [place] [address] Hematocrit Volume Fraction (Bld) 46.8 % High 36.0-46.0 [facility] Comment on above: Performed By: #### C BCDIF, PT, PTT, CMP #### [facility] [address] [place], [place] [phone] Hemoglobin mass conc (Bld) 16.2 g/dL High 11.5-15.5 [facility] Comment on above: Performed By: #### C BCDIF, PT, PTT, CMP #### [facility] [address] [place] [address] Lymphocytes #/vol (Bld) 2.83 10*3/uL Normal 1.00-4.00 [facility] Comment on above: Performed By: #### C BCDIF, PT, PTT, CMP #### [facility] [address] [place] [address] Lymphocytes/100 WBC (Bld) 31.4 % Normal [facility] Comment on above: Performed By: #### C BCDIF, PT, PTT, CMP #### [facility] [address] [place] [address] MCH Entitic mass (RBC) 27.8 pG Normal 26.0-34.0 [facility] Comment on above: Performed By: #### C BCDIF, PT, PTT, CMP #### [facility] [address] [place] [address] MCHC mass conc (RBC) 34.6 g/dL Normal 30.5-36.0 [facility] Comment on above: Performed By: #### C BCDIF, PT, PTT, CMP #### [facility] [address] [place] [address] MCV Entitic volume (RBC) 80.4 fL Normal 80.0-100.0 [facility] Comment on above: Performed By: #### C BCDIF, PT, PTT, CMP #### [facility] [address] [place] [address] Monocytes/100 WBC (Bld) 6.2 % Normal [facility] Comment on above: Performed By: #### C BCDIF, PT, PTT, CMP #### [facility] [address] [place] [address] Neutrophils/100 WBC (Bld) 60.4 % Normal [facility] Comment on above: Performed By: #### C BCDIF, PT, PTT, CMP #### [facility] [address] [place] [address] Platelet mean volume Entitic volume (Bld) 9.9 fL Normal 9.0-12.7 [facility] Comment on above: Performed By: #### C BCDIF, PT, PTT, CMP #### [facility] [address] [place] [address] Platelets #/vol (Bld) 247 10*3/uL Normal 150-400 [facility] Comment on above: Performed By: #### C BCDIF, PT, PTT, CMP #### [facility] [address] [place] [address] RBC #/vol (Bld) 5.82 10*6/uL High 3.90-5.20 [facility] Comment on above: Performed By: #### C BCDIF, PT, PTT, CMP #### [facility] [address] [place] [address] WBC #/vol (Bld) 9.02 10*3/uL Normal 3.70-11.00 [facility] Comment on above: Performed By: #### C BCDIF, PT, PTT, CMP #### [facility] [address] [place] [address] CK, Total and CKMBon 018 CK enzyme act/vol 41 U/L Low 42-196 [facility] Comment on above: Performed By: #### N TBNP, CKCKMB #### [facility] [address] [place] [address] CK MB % CK MB % not reported with CK <100 U/L. Normal 0.0-4.0 [facility] Comment on above: Performed By: #### N TBNP, CKCKMB #### [facility] [address] [place] [address] MB 1.7 ng/mL Normal <4.3 [facility] Comment on above: Performed By: #### N TBNP, CKCKMB #### [facility] [address] [place] [address] Comp Metabolic Panelon 11-30 Albumin mass conc 3.5 g/dL Low 3.9-4.9 [facility] Comment on above: Performed By: #### C BCDIF, PT, PTT, CMP #### [facility] [address] [place] [address] ALP enzyme act/vol 97 U/L Normal 32-117 [facility] Comment on above: Performed By: #### C BCDIF, PT, PTT, CMP #### [facility] [address] [place] [address] ALT enzyme act/vol 17 U/L Normal 7-38 [facility] Comment on above: Performed By: #### C BCDIF, PT, PTT, CMP #### [facility] [address] [place] [address] Anion gap molar conc 12 mmol/L Normal 9-18 [facility] Comment on above: Performed By: #### C BCDIF, PT, PTT, CMP #### [facility] [address] [place] [address] AST enzyme act/vol 26 U/L Normal 13-35 [facility] Comment on above: Performed By: #### C BCDIF, PT, PTT, CMP #### [facility] [address] [place] [address] Bilirubin mass conc 0.7 mg/dL Normal 0.2-1.3 [facility] Comment on above: Performed By: #### C BCDIF, PT, PTT, CMP #### [facility] [address] [place] [address] Calcium mass conc 8.5 mg/dL Normal 8.5-10.2 [facility] Comment on above: Performed By: #### C BCDIF, PT, PTT, CMP #### [facility] [address] [place] [address] Chloride molar conc 102 mmol/L Normal 97-105 [facility] Comment on above: Performed By: #### C BCDIF, PT, PTT, CMP #### [facility] [address] [place] [address] CO2 molar conc 23 mmol/L Normal 22-30 [facility] Comment on above: Performed By: #### C BCDIF, PT, PTT, CMP #### [facility] [address] [place] [address] Creatinine mass conc 0.61 mg/dL Normal 0.58-0.96 [facility] Comment on above: Performed By: #### C BCDIF, PT, PTT, CMP #### [facility] [address] [facility] [phone] eGFR- Amer. >60 Normal [facility] Comment on above: Performed By: #### C BCDIF, PT, PTT, CMP #### [facility] [address] [facility] [phone] GFR/1.73 sq M predicted among non-blacks MDRD vol rate/area (S/P/Bld) mL/min/{1.73_m2} Normal [facility] Comment on above: Result Comment: eGFR (Estimated [...] #### C BCDIF, PT, PTT, CMP #### [facility] [address] [facility] [phone] Glucose mass conc 260 mg/dL High 74-99 [facility] [facility] Comment on above: Result Comment: The [place] [employer] (ADA) provides guidance for cutoff [...] Standards of Medical Care in Diabetes 2016, [place] [employer]. Diabetes Care. 2016.39(Suppl 1). Performed By: #### C BCDIF, PT, PTT, CMP #### [facility] [address] [facility] [phone] Potassium molar conc 4.1 mmol/L Normal 3.7-5.1 [facility] Comment on above: Performed By: #### C BCDIF, PT, PTT, CMP #### [facility] [address] [facility] [phone] Protein mass conc 6.5 g/dL Normal 6.3-8.0 [facility] Comment on above: Performed By: #### C BCDIF, PT, PTT, CMP #### [facility] [address] [facility] [phone] Sodium molar conc 137 mmol/L Normal 136-144 [facility] Comment on above: Performed By: #### C BCDIF, PT, PTT, CMP #### [facility] [address] [facility] [phone] Urea nitrogen mass conc 5 mg/dL Low 7-21 M [facility] Comment on above: Performed By: #### C BCDIF, PT, PTT, CMP #### [facility] [address] [facility] [phone] ED NOTEon 11-30-2017 ED NOTE HNO ID: [id number] Author: Sara Solano) CHAYITO Bryson Service: Nursing Author Type: Registered Nurse Type: ED Notes Filed: 11/30/2017 9:26 PM Note Text: Report called to Patricio on 3S Normal [facility] ED NOTE HNO ID: [id number] Author: Sara Solano) CHAYITO Bryson Service: Nursing Author Type: Registered Nurse Type: ED Notes Filed: 11/30/2017 7:18 PM Note Text: Pt reports no relief of chest pain with nitro. SBP 125 to 109. [facility] ED NOTE HNO ID: [id number] Author: Sara Solano) CHAYITO Bryson Service: Nursing Author Type: Registered Nurse Type: ED Notes Filed: 11/30/2017 6:45 PM Note Text: Pt presents to the ER tearful about being scared of chest pain she is having. Onset was 0200 this a.m. She was seen at [facility] ER earlier today and advised to be admitted for observation. Pt states she wanted to drive herself in after settling family arrangements. She indicates mid-sternal pain that is stabbing, aching, sharp, dull, and pressure all at the same time. She was given 4 baby ASA and morphine at [place], per pt. Medic at the bedside to lab and line. [facility] ED NOTE HNO ID: [id number] Author: Evelyne AgudeloRn) CHAYITO Puga Service: (none) Author Type: Registered Nurse Type: ED Notes Filed: 11/30/2017 6:13 PM Note Text: Pt presents to ED with c/o chest pain. Pt explains she was seen at [place] ED earlier today and Ed wanted to transfer her to [place] for obs but refused at that time [facility] ED PROV NOTEon 11-30-2017 Protein mass conc HNO ID: [id number] Author: Rafy Guallpa) Mao ROBLEDO Service: (none) Author Type: Physician Voice Teacher Type: ED Provider Notes Filed: 11/30/2017 9:05 PM Note Text: ED Provider Note Patient Name: Trenton Jackson SERVICE DATE: 11/30/17 History Patient presents with: Chest Pain ca HPI: 47-year-old female with a history of diabetes, hyperlipidemia, hypertension, psychiatric disorder, diverticulitis, ejection fraction of 35 and 35% presents to the emergency department for evaluation of chest pain. The patient was in [place] ED earlier and was seen and evaluated [...] Abs Lymph 2.83 1.00 - 4.00 k/uL [place]% 6.2 % Abs [place] 0.56 <0.87 k/uL Eosin% 1.4 % Abs [...] Other: No acute osseous abnormality is identified. Control Tower Operator: PSCB Transcribe Date/Time: Nov 30 2017 [...] of the patient and have reviewed the PA/PAINTINGS RESTORER note. My jones findings include: History - Ms. Jackson is a 47 yo F w/ h/o HTN and hyperlipidemia and DM and smoking, likely IL (EF lower and ? Dyskinesis in LAD) w/out rx previously, now here w/ chest pain/dyspnea/LH/nausea, intermittently sweaty, nearly 24 hrs now. Went to [place] trop initially ok, ECG NSST changes, advised [...] Date: 11/30/2017 Time: 7:05 PM Rafy Rashid (Pa-C) Mao ROBLEDO 11/30/17 5302 Normal [facility] HISTORY PHYSICALon HISTORY PHYSICAL HNO ID: [id number] Author: Fercho Osborne Service: Hospital Medicine Author Type: Physician Type: HANDP Filed: 11/30/2017 10:37 PM Note Text: DEPARTMENT OF HOSPITAL MEDICINE HISTORY AND PHYSICAL EXAM SERVICE DATE: 11/30/2017 SERVICE TIME: 9:48 PM Primary Care Physician: Uziel Conteh MD NIGHT AND WEEKEND COVERAGE: Nights: Please contact pager [phone]. Subjective HPI 47 Y F with PMH of diabetes, hyperlipidemia, hypertension, anxiety, depression, H/O pericardial effusion, systolic dysfunction, EF of 35 and 35% in 03/20, presents to the ED for evaluation of chest pain. The patient was seen in [place] ED earlier today and they wanted to [...] CXR unremarkable Never Had stress test or [facility] Had abnormal ECHO in mar 2017 [...] 30, 2017 TIME: 9:48 PM PAGER/CONTACT #: [phone] [facility] HOSPon 11-30-2017 HOSP Patient:Olamide Jackson MRN: Height:5' [...] 12/04/2017 46.0 36.0 Progress Notes (): Evelyne Puga RN, RN 11/30/2017 6:13 PM Signed Pt presents to ED with c/o chest pain. Pt explains she was seen at [place] ED earlier today and Ed wanted to transfer her to [place] for obs but refused at that time [...] of chest pain. The patient was in [place] ED earlier and was seen and evaluated [...] Abs Lymph 2.83 1.00 - 4.00 k/uL [place]% 6.2 % Abs [place] 0.56 <0.87 k/uL Eosin% 1.4 % Abs [...] Other: No acute osseous abnormality is identified. Control Tower Operator: PSCB Transcribe Date/Time: Nov 30 2017 [...] of the patient and have reviewed the PA/PAINTINGS RESTORER note. My jones findings include: History - Ms. Jackson is a 47 yo F w/ h/o HTN and hyperlipidemia and DM and smoking, likely IL (EF lower and ? Dyskinesis in LAD) w/out rx previously, now here w/ chest pain/dyspnea/LH/nausea, intermittently sweaty, nearly 24 hrs now. Went to [place] trop initially ok, ECG NSST changes, advised [...] (Lauren) Mao ROBLEDO 11/30/172104 Previous Version Sara Bryson RN, RN 11/30/2017 6:45 PM Signed Pt presents to the ER tearful about being scared of chest pain she is having. Onset was 0200 this a.m. She was seen at [facility] ER earlier today and advised to be admitted for observation. Pt states she wanted to drive herself in after settling family arrangements. She indicates mid-sternal pain that is stabbing, aching, sharp, dull, and pressure all at the same time. She was given 4 baby ASA and morphine at [place], per pt. Medic at the bedside to [...] AND WEEKEND COVERAGE: Nights: Please contact pager [phone]. Subjective HPI 47 Y F with PMH of diabetes, hyperlipidemia, hypertension, anxiety, depression, H/O pericardial effusion, systolic dysfunction, EF of 35 and 35% in 03/20, presents to the ED for evaluation of chest pain. The patient was seen in [place] ED earlier today and they wanted to [...] CXR unremarkable Never Had stress test or [facility] Had abnormal ECHO in mar 2017 [...] 30, 2017 TIME: 9:48 PM PAGER/CONTACT #: [phone] Patricio Tate RN, RN 12/01/2017 5:01 AM Addendum Nursing Progress Note Patient Name: Trenotn Jackson Patient Location: [facility]S-0304/[id number] Daily Note: 2200: Assumed care of pt. [...] Pt anxious about health. Given meds per AUG. 0300: Pt observed sleeping. 0500: Pt observed sleeping. This note was completed by: Patricio Tate, RN Previous Version Jonna Boothe RN, RN 12/01/2017 5:58 PM Addendum Nursing Progress Note Patient Name: Trenton Jackson Patient Location: [facility]3S-0304/[id number] Daily Note: 0715: Assumed care of patient. [...] c/o 8/10 chest pain. Will medicate per AUG. Pt requested to have Lidocaine patch removed. This note was completed by: Jonna Boothe RN Previous Version Bety Dempsey RN, RN 12/01/2017 9:52 AM Signed CARE MANAGEMENT: ASSESSMENT AND DISCHARGE PLAN SERVICE DATE: 12/01/2017 SERVICE TIME: 9:48 AM PRIMARY CARE PHYSICIAN: Uziel Conteh MD Confirmed. Likes am any day for follow ups. 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 No Advance Directive: Current Advance Directive: None Election Supervisor Assisted with AD Completion: Yes Action: Education [...] None Has the Patient Been in a Nursing Home Facility in the Past 30 days? 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 Relation: Mother Supportive: Yes Other Important Patient [...] 0 I feel financially burdened by my [id number] expenses for my prescription medication: Disagree somewhat - 0 Patient is categorized as low risk < 2 Are you interested in bedside delivery of your medications? Yes , uses [facility] [place] [facility] Concerns: In the Last Month, Have [...] 01, 2017 TIME: 9:48 AM PAGER/CONTACT #: [phone] Jevon Sherman MD 12/01/2017 10:32 AM Signed [...] associated with exertion. In the ER at [place] yesterday she had no ischemic changes on ECG, NSR, and negative Tn. She has a history of DM, is an active smoker, and had an abnormal echocardiogram last year showing LVEF 30% with an LAD territory wall motion abnormality with a dyskinetic apex. She has not seen a miller distillery about this problem and was unaware of [...] Oral 88 18 95 % - - 11/30/172352 137/90 36.8 ?C (98.2 ?F) Oral 97 18 97 % - - 11/30/172219 135/93 36.9 ?C (98.4 ?F) Oral 94 18 98 % - - 11/30/170 - - - - - - - [...] 72 Hour Labs: Recent Labs 12/01/17 0755 11/30/17 1845 11/30/17 1500 CK -- -- 41* -- TROPT [...] 11/30/176 -- 11/30/17 2200 pneumatic compression stockings (pa,oh) VTE Prophylaxis: VTE prophylaxis appropriate SIGNATURE: Lisa Bocanegra MD PATIENT NAME: Trenton Jackson DATE: December 01, 2017 TIME: 2:46 PM PAGER: [phone] Patricio Tate RN, RN 12/02/2017 6:32 AM Addendum Nursing Progress Note Patient Name: Trenton Jackson Patient Location: [facility]0304/[id number]-[id number] Daily Note: 1915: Assumed care of pt. [...] complaint of pain 01/11, will medicate per MAR. Call light within reach. 0100: Pt observed sleeping. Call light within reach. 0300: Pt observed sleeping. Call light within reach. 0400: Pt tele monitor reading santa, pt observed sweating profusely. Glucose 84, normally 200's. [place] juice and johnson crackers given. Glucose up to 149. Pt feeling slightly better. Will continue to monitor. 0500: Pt observed sleeping. Unable to obtain oral or axillary temp to this point. Will obtain rectal temp. Call light within reach. This note was completed by: Patricio Tate, RN Previous Version Patricio Tate, RN, RN 12/02/2017 4:59 AM Signed Nursing Progress Note Patient Name: Trenton Jackson Patient Location: [facility]303/[id number] Event(s) / Intervention Note: The patient was [...] This note was completed by: Patricio Tate, RN Jonna Boothe RN, RN 12/02/2017 2:09 PM Signed Nursing Progress Note Patient Name: Trenton Jackson Patient Location: [facility]4/XP-[id number] Daily Note: 0715: Assumed care of patient. [...] December 02, 2017 TIME: 1:07 PM PAGER: [phone] Previous Version Sara Johnson, RN, RN 12/02/2017 6:26 PM Addendum Nursing Progress Note Patient Name: Trenton Jackson Patient Location: [place] [address]/HI-[id number] Daily Note:1555 - Assumed care of pt. 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 DATE OF [...] nuclear imaging. Jevon Sherman M.D. Cardiovascular Medicine [id number] /[id number] Jazzmine Galvan, RN, RN 12/03/2017 6:59 PM Addendum Nursing Progress Note Patient Name: Trenton Jackson Patient Location: [facility]0304/SI-[id number]-[id number] Daily Note: 0700: Assumed care of pt. [...] 03, 2017 TIME: 11:44 AM PAGER/CONTACT #: [phone] Jevon Sherman MD 12/03/2017 5:30 PM Signed [...] 12/03/17 0605 12/02/17 0724 12/01/17 0755 11/30/17 2675 CK -- -- -- -- -- 41* [...] SERVICE TIME: 8:36 PM LOCATION / ROOM: [place] [address] [address] Hospital Medicine/Primary Attending: Dex Handy MD NIGHT COVERAGE BETWEEN 5.30P-7.30A Page [phone] ASSESSMENT AND PLAN Active Hospital Problems Diagnosis [...] might need to be transferred to Main campus for further work up - pending LV [...] mg INTRAVENOUS q 4 H PRN Lisa Bocanegra 2 mg at 12/03/17 1545 nitroglycerin sublingual 0.4 mg tab(s) (NITROQUICK) 0.4 mg SUBLINGUAL q 5 MIN PRN Rafy Rashid (Pa-C) Mao III 0.4 mg at 11/30/17 191 dicyclomine 20 mg tab(s) (BENTYL) 20 mg ORAL q 6 H [employer] [place] 20 mg at 12/03/17 1523 insulin glargine 40 Units injection (long acting) (LANTUS) 40 Units SUBCUTANEOUS BID [employer] [place] 40 Units at 12/03/17 1523 sertraline 25 mg tab(s) (ZOLOFT) 25 mg ORAL DAILY [employer] [place] 25 mg at 12/03/17 0853 albuterol 2.5 mg /3 mL (0.083 %) 2.5 mg (PROVENTIL) 2.5 mg INHALATION q 4 H PRN [employer] [place] promethazine 12.5 mg tab(s) (PHENERGAN) 12.5 mg ORAL q 6 H PRN [employer] [place] 12.5 mg at 12/03/17 1550 aspirin, enteric coated 81 mg tab(s) (ASPIRIN, ENTERIC COATED) 81 mg ORAL DAILY [employer] [place] 81 mg at 12/03/17 0853 nitroglycerin sublingual 0.4 mg tab(s) (NITROQUICK) 0.4 mg SUBLINGUAL q 5 MIN PRN [employer] [place] dextrose 40 % 15 g 15 g ORAL PRN [employer] [place] Or glucagon 1 mg injection (GLUCAGEN) 1 mg INTRAMUSCULAR PRN [employer] [place] Or dextrose 50% in water 25 mL syringe 12.5 g INTRAVENOUS PRN [employer] [place] insulin lispro injection (rapid acting) (HumaLOG) SUBCUTANEOUS w MEALS [employer] [place] 3 Units at 12/03/17 1839 insulin lispro injection (rapid acting) (HumaLOG) SUBCUTANEOUS AT BEDTIME [employer] [place] 2 Units at 12/02/172012 ALPRAZolam 0.5 mg tab(s) (XANAX) 0.5 mg ORAL BID PRN [employer] [place] 0.5 mg at 12/03/17 0640 OBJECTIVE PHYSICAL [...] December 03, 2017 TIME: 8:36 PM Barb Ramey, RN, RN 12/03/2017 9:59 PM Signed Nursing Progress Note Patient Name: Trenton Jackson Patient Location: [place]4/[id number] Daily Note: 2154- Dr Nava updated on pt medication request and HS blood sugar. New orders received. This note was completed by: CHAYITO Braga MD 12/04/2017 11:15 AM Signed CARDIAC CATHETERIZATION [...] TIME: 11:14 AM The following are the [facility] Criteria for High Risk Catheterization: Patients with high-risk conditions listed above may require emergency catheter-based therapeutic interventions or open heart surgery. Hence, they shall undergo cardiac catheterization only in a catheterization laboratory that has open heart surgical support available on-site, (i.e., accessible from the catheterization laboratory or by gurney). Progress Notes (INTM AG LODI ): Bhumi Junior LPN 11/23/2017 9:11 AM Signed Message left on pt's voicemail following up on ER visit 11/20/17. Requested return call for update, to schedule appt, if pt desires. Bhumi Junior LPN Normal [facility] High Sens Troponin Ton 11-30 High Sensitivity THEO 9 ng/L Normal <12 [facility] Comment on above: Result Comment: [...] day MACE. Performed By: #### H STNT ####[facility] [id number] [place] [phone] High Sensitivity THEO 10 ng/L Normal <12 [facility] Comment on above: Result Comment: [...] MACE. Performed By: #### H STNT #### [facility] [address] [place] [phone] NT Pro BNPon 11-30-2017 Protein mass conc 517 pg/mL High <125 [facility] Comment on above: Performed By: #### N TBNP, CKCKMB #### [facility] [address] [place] [phone] Protimeon 11-30-2017 Prothrombin time (PT) Coag time (PPP) 10.2 s Normal 9.7-13.0 [facility] Comment on above: Performed By: #### C BCDIF, PT, PTT, CMP #### [facility] [address] [facility] [phone] Prothrombin time (PT) Coag time (PPP) 1.0 s Normal 0.9-1.3 [facility] Comment on above: Result Comment: Charissa min K Antagonist (VKA) Therapeutic Range: INR 2 to 3 (Target INR of 2.5) Note: For patients treated with VKA drugs, such as warfarin, the [place] [employer] 2012 Guideline recommends [...] 2.5 to 3.5 (target INR of 3). Adrianott GH, et al. Chest 2012, 141:7S-47S Sampson RA, et al. [facility] 2017, 70: 252-289 Performed By: #### C BCDIF, PT, PTT, CMP #### [facility] [address] [place] [address] XR CHEST 1V FRONTAL PORTon 0 11-30-2017 [...] Other: No acute osseous abnormality is identified. Control Tower Operator: PSCB Transcribe Date/Time: Nov 30 2017 7:15P Dictated by : BRAD BLAKE MD This examination was interpreted and the report reviewed and electronically signed by: BRAD BLAKE MD on Nov 30 2017 7:16PM EST [id number] Normal [facility] Influenza virus A and B and SARS-CoV-2 (COVID-19) Ag panel - Upper respiratory specim SARS-CoV-2 & FLU Antigen (Rapid) Influenzae A [facility] Work Phone: Vital Signs Date Time Vital Sign Value Performing Clinician Facility 02-11-2025 14:45-0400 Body temperature 97.8 [degF] Zohreh Mckeon NON LICENSED NUCLEAR PLANT OPERATOR-C Work Phone: 9(776)114-428758 [address] 02-11-2025 14:45-0400 Diastolic blood pressure 68 mm[Hg] Zohreh Mckeon NON LICENSED NUCLEAR PLANT OPERATOR-C Work Phone: 7(505)975-780905 [place] [address] 02-11-2025 14:45-0400 Heart rate 89 /min Zohreh Mckeon NON LICENSED NUCLEAR PLANT OPERATOR-C Work Phone: 3(502)710-411105 [place] [address] 02-11-2025 14:45-0400 Respiratory rate 16 /min Zohreh Mckeon NON LICENSED NUCLEAR PLANT OPERATOR-C Work Phone: 8(821)814-137405 [place] [address] 02-11-2025 14:45-0400 SaO2% (BldA) [Mass fraction] 100 % Zohreh Mckeon NON LICENSED NUCLEAR PLANT OPERATOR-C Work Phone: 1(276)720-861658 [address] 02-11-2025 14:45-0400 Systolic blood pressure 137 mm[Hg] Zohreh Mckeon NON LICENSED NUCLEAR PLANT OPERATOR-C Work Phone: 4(699)558-578205 [place] [address] 02-11-2025 04:42-0400 Body mass index (BMI) [Ratio] 29.7 kg/m2 Zohreh Mckeon NON LICENSED NUCLEAR PLANT OPERATOR-C Work Phone: 5(152)391-172905 [place] [address] 02-11-2025 04:42-0400 Body weight 83.9 kg Zohreh Mckeon NON LICENSED NUCLEAR PLANT OPERATOR-C Work Phone: 0(750)060-066405 [place] [address] 02-05-2025 02:09-0400 Inhaled oxygen flow rate 2 L/min Zohreh Mckeon NON LICENSED NUCLEAR PLANT OPERATOR-C Work Phone: 9(284)203-424399 [place] [address] 01-30-2025 13:32-0400 Body height 167.64 cm Zohreh Mckeon NON LICENSED NUCLEAR PLANT OPERATOR-C Work Phone: 4(532)730-403505 [place] [address] 01-29-2025 21:00-0400 Diastolic blood pressure 70 mm[Hg] Zohreh Mckeon NON LICENSED NUCLEAR PLANT OPERATOR-C Work Phone: 4(546)441-761399 [place] [address] 01-29-2025 21:00-0400 Heart rate 70 /min Zohrehlurdes Mckeon NON LICENSED NUCLEAR PLANT OPERATOR-C Work Phone: 7(306)811-921605 [place] [address] 01-29-2025 21:00-0400 Respiratory rate 14 /min Zohreh Mckeon NON LICENSED NUCLEAR PLANT OPERATOR-C Work Phone: 5(303)148-364905 [place] [address] 01-29-2025 21:00-0400 SaO2% (BldA) [Mass fraction] 98 % Zohreh Mckeon NON LICENSED NUCLEAR PLANT OPERATOR-C Work Phone: 9(004)737-947599 [place] [address] 01-29-2025 21:00-0400 Systolic blood pressure 164 mm[Hg] Zohreh Mckeon NON LICENSED NUCLEAR PLANT OPERATOR-C Work Phone: 4(670)423-879399 [place] [address] 01-29-2025 19:33-0400 Body temperature 98 [degF] Zohreh Mckeon NON LICENSED NUCLEAR PLANT OPERATOR-C Work Phone: 5(808)376-185499 [place] [address] 01-29-2025 15:40-0400 Body height 167.64 cm Zohreh Mckeon NON LICENSED NUCLEAR PLANT OPERATOR-C Work Phone: 9(122)029-874999 [place] [address] 01-29-2025 15:40-0400 Body mass index (BMI) [Ratio] 26.9 kg/m2 Zohreh Mckeon NON LICENSED NUCLEAR PLANT OPERATOR-C Work Phone: 2(439)439-703999 [place] [address] 01-29-2025 15:40-0400 Body weight 75.7 kg Zohreh Mckeon NON LICENSED NUCLEAR PLANT OPERATOR-C Work Phone: 7(245)882-294605 [place] [address] 12-12-2024 18:17-0400 Body temperature 98.5 [degF] Zohreh Mckeon NON LICENSED NUCLEAR PLANT OPERATOR-C Work Phone: 0(761)263-848605 [place] [address] 12-12-2024 18:17-0400 Diastolic blood pressure 91 mm[Hg] Zohreh Mckeon NON LICENSED NUCLEAR PLANT OPERATOR-C Work Phone: 0(388)422-581799 [place] [address] 12-12-2024 18:17-0400 Heart rate 97 /min Zohreh Mckeon NON LICENSED NUCLEAR PLANT OPERATOR-C Work Phone: 4(799)419-874699 [place] [address] 12-12-2024 18:17-0400 Respiratory rate 18 /min Zohreh Mckeon NON LICENSED NUCLEAR PLANT OPERATOR-C Work Phone: 0(959)965-560105 [place] [address] 12-12-2024 18:17-0400 SaO2% (BldA) [Mass fraction] 98 % Zohreh Mckeon NON LICENSED NUCLEAR PLANT OPERATOR-C Work Phone: 4(747)947-924499 [place] [address] 12-12-2024 18:17-0400 Systolic blood pressure 152 mm[Hg] Zohreh Mckeon NON LICENSED NUCLEAR PLANT OPERATOR-C Work Phone: 6(654)426-898305 [place] [address] 12-12-2024 13:08-0400 Body height 167.64 cm Zohreh Mckeon NON LICENSED NUCLEAR PLANT OPERATOR-C Work Phone: 7(589)031-126405 [place] [address] 09-29-2024 16:59-0400 Body temperature 97.7 [degF] [facility] Work Phone: 7(273)040-886205 [place] [address] 09-29-2024 16:59-0400 Diastolic blood pressure 80 mm[Hg] [facility] Work Phone: 3(088)849-308405 [place] [address] 09-29-2024 16:59-0400 Heart rate 133 /min [facility] Work Phone: 0(408)345-912799 [place] [address] 09-29-2024 16:59-0400 Respiratory rate 15 /min [facility] Work Phone: 8(225)459-102305 [place] [address] 09-29-2024 16:59-0400 SaO2% (BldA) [Mass fraction] 95 % [facility] Work Phone: 1(603)748-316005 [place] [address] 09-29-2024 16:59-0400 Systolic blood pressure 149 mm[Hg] [facility] Work Phone: 8(259)263-134205 [place] [address] 09-29-2024 10:16-0400 Body height 170.18 cm [facility] Work Phone: 0(759)154-503305 [place] [address] 09-29-2024 10:16-0400 Body mass index (BMI) [Ratio] 28 kg/m2 [facility] Work Phone: 6(498)019-462705 [place] [address] 09-29-2024 10:16-0400 Body weight 81.4 kg [facility] Work Phone: 3(603)777-212905 [place] [address] 09-21-2024 17:11-0400 Body temperature 97.9 [degF] [facility] Work Phone: 3(508)143-394505 [place] [address] 09-21-2024 17:11-0400 Diastolic blood pressure 102 mm[Hg] [facility] Work Phone: 3(761)040-953205 [place] [address] 09-21-2024 17:11-0400 Heart rate 110 /min [facility] Work Phone: 0(963)108-136805 [place] [address] 09-21-2024 17:11-0400 Respiratory rate 16 /min [facility] Work Phone: 5(272)526-300305 [place] [address] 09-21-2024 17:11-0400 SaO2% (BldA) [Mass fraction] 98 % [facility] Work Phone: 3(510)385-311705 [place] [address] 09-21-2024 17:11-0400 Systolic blood pressure 139 mm[Hg] [facility] Work Phone: 8(219)166-921305 [place] [address] 09-21-2024 12:16-0400 Body height 170.18 cm [facility] Work Phone: 4(444)818-259805 [place] [address] 09-21-2024 12:16-0400 Body mass index (BMI) [Ratio] 28.4 kg/m2 [facility] Work Phone: 8(437)667-010805 [place] [address] 09-21-2024 12:16-0400 Body weight 82.3 kg [facility] Work Phone: 1(855)116-234005 [place] [address] 09-16-2024 15:35-0400 Diastolic blood pressure 94 mm[Hg] [facility] Work Phone: 6(430)528-898605 [place] [address] 09-16-2024 15:35-0400 Heart rate 110 /min [facility] Work Phone: 8(161)097-765005 [place] [address] 09-16-2024 15:35-0400 SaO2% (BldA) [Mass fraction] 98 % [facility] Work Phone: 4(580)411-434505 [place] [address] 09-16-2024 15:35-0400 Systolic blood pressure 160 mm[Hg] [facility] Work Phone: 1(544)464-611105 [place] [address] 09-16-2024 14:31-0400 Body temperature 97.2 [degF] [facility] Work Phone: 2(377)959-318905 [place] [address] 09-16-2024 14:31-0400 Respiratory rate 18 /min [facility] Work Phone: 9(617)277-907405 [place] [address] 09-16-2024 03:10-0400 Body mass index (BMI) [Ratio] 28.7 kg/m2 [facility] Work Phone: 9(014)441-430705 [place] [address] 09-16-2024 03:10-0400 Body weight 83.1 kg [facility] Work Phone: 8(987)702-528105 [place] [address] 09-11-2024 10:56-0400 Body height 170.18 cm [facility] Work Phone: 1(267)329-934005 [place] [address] 09-07-2024 21:00-0400 Diastolic blood pressure 79 mm[Hg] [facility] Work Phone: 9(829)682-069105 [place] [address] 09-07-2024 21:00-0400 Heart rate 101 /min [facility] Work Phone: 9(735)859-752005 [place] [address] 09-07-2024 21:00-0400 Respiratory rate 10 /min [facility] Work Phone: 1(595)898-508305 [place] [address] 09-07-2024 21:00-0400 SaO2% (BldA) [Mass fraction] 99 % [facility] Work Phone: 7(324)739-242005 [place] [address] 09-07-2024 21:00-0400 Systolic blood pressure 143 mm[Hg] [facility] Work Phone: 5(143)988-967005 [place] [address] 09-07-2024 15:52-0400 Body height 170.18 cm [facility] Work Phone: 2(299)675-433405 [place] [address] 09-07-2024 15:52-0400 Body mass index (BMI) [Ratio] 26.9 kg/m2 [facility] Work Phone: 5(909)518-915105 [place] [address] 09-07-2024 15:52-0400 Body temperature 97.4 [degF] [facility] Work Phone: 9(959)263-705005 [place] [address] 09-07-2024 15:52-0400 Body weight 77.9 kg [facility] Work Phone: 7(321)530-983305 [place] [address] 09-05-2024 15:24-0400 Body temperature 97.7 [degF] [facility] Work Phone: 2(934)046-197405 [place] [address] 09-05-2024 15:24-0400 Diastolic blood pressure 62 mm[Hg] [facility] Work Phone: 7(485)787-765305 [place] [address] 09-05-2024 15:24-0400 Heart rate 90 /min [facility] Work Phone: 2(158)699-411705 [place] [address] 09-05-2024 15:24-0400 Respiratory rate 15 /min [facility] Work Phone: 9(005)918-555805 [place] [address] 09-05-2024 15:24-0400 SaO2% (BldA) [Mass fraction] 96 % [facility] Work Phone: 4(320)196-480105 [place] [address] 09-05-2024 15:24-0400 Systolic blood pressure 100 mm[Hg] [facility] Work Phone: 0(695)983-846305 [place] [address] 09-05-2024 10:29-0400 Body height 170.18 cm [facility] Work Phone: 1(927)632-386205 [place] [address] 09-05-2024 10:29-0400 Body mass index (BMI) [Ratio] 27.2 kg/m2 [facility] Work Phone: 5(937)674-986205 [place] [address] 09-05-2024 10:29-0400 Body weight 78.9 kg [facility] Work Phone: 4(766)282-230005 [place] [address] 09-02-2024 12:46-0400 Body temperature 98 [degF] [facility] Work Phone: 1(820)948-357505 [place] [address] 09-02-2024 12:46-0400 Diastolic blood pressure 78 mm[Hg] [facility] Work Phone: 2(583)503-570705 [place] [address] 09-02-2024 12:46-0400 Heart rate 60 /min [facility] Work Phone: 2(257)149-031605 [place] [address] 09-02-2024 12:46-0400 Respiratory rate 13 /min [facility] Work Phone: 5(601)791-623705 [place] [address] 09-02-2024 12:46-0400 SaO2% (BldA) [Mass fraction] 95 % [facility] Work Phone: 1(040)930-290005 [place] [address] 09-02-2024 12:46-0400 Systolic blood pressure 112 mm[Hg] [facility] Work Phone: 1(192)852-286405 [place] [address] 09-02-2024 12:00-0400 Heart rate 96 /min [facility] Work Phone: 3(407)266-383805 [place] [address] 09-02-2024 12:00-0400 Respiratory rate 17 /min [facility] Work Phone: 0(163)939-738105 [place] [address] 09-02-2024 12:00-0400 SaO2% (BldA) [Mass fraction] 97 % [facility] Work Phone: 9(012)636-568205 [place] [address] 09-02-2024 12:00-0400 Systolic blood pressure 144 mm[Hg] [facility] Work Phone: 3(553)703-734605 [place] [address] 09-02-2024 06:00-0400 Body mass index (BMI) [Ratio] 27.7 kg/m2 [facility] Work Phone: 2(057)391-094205 [place] [address] 09-02-2024 06:00-0400 Body weight 80.1 kg [facility] Work Phone: 4(260)994-977905 [place] [address] 08-30-2024 15:46-0400 Body height 170.18 cm [facility] Work Phone: 2(663)883-239805 [place] [address] 08-26-2024 20:00-0400 Diastolic blood pressure 69 mm[Hg] [facility] Work Phone: 9(930)836-638805 [place] [address] 08-26-2024 20:00-0400 Heart rate 98 /min [facility] Work Phone: 1(001)974-613005 [place] [address] 08-26-2024 20:00-0400 Systolic blood pressure 129 mm[Hg] [facility] Work Phone: 9(546)758-548405 [place] [address] 08-26-2024 19:09-0400 Body temperature 98 [degF] [facility] Work Phone: 1(458)890-802905 [place] [address] 08-26-2024 19:09-0400 Respiratory rate 16 /min [facility] Work Phone: 2(146)462-852105 [place] [address] 08-26-2024 19:09-0400 SaO2% (BldA) [Mass fraction] 97 % [facility] Work Phone: 5(141)899-952505 [place] [address] 08-26-2024 10:08-0400 Body height 170.18 cm [facility] Work Phone: 3(240)099-729505 [place] [address] 08-26-2024 10:08-0400 Body mass index (BMI) [Ratio] 28.8 kg/m2 [facility] Work Phone: 1(551)098-711705 [place] [address] 08-26-2024 10:08-0400 Body weight 83.6 kg [facility] Work Phone: 8(745)983-417505 [place] [address] 08-01-2024 20:58-0500 Heart rate 101 /min [facility] Work Phone: 6(199)417-414705 [place] [address] 08-01-2024 20:58-0500 Respiratory rate 22 /min [facility] Work Phone: 0(422)543-960505 [place] [address] 08-01-2024 20:58-0500 SaO2% (BldA) [Mass fraction] 99 % [facility] Work Phone: 5(531)089-289805 [place] [address] 08-01-2024 19:00-0500 Diastolic blood pressure 76 mm[Hg] [facility] Work Phone: 3(909)423-071705 [place] [address] 08-01-2024 19:00-0500 Systolic blood pressure 134 mm[Hg] [facility] Work Phone: 3(848)178-369905 [place] [address] 08-01-2024 17:00-0500 Body temperature 98.4 [degF] [facility] Work Phone: 7(010)332-902305 [place] [address] 08-01-2024 13:46-0500 Body mass index (BMI) [Ratio] 27.9 kg/m2 [facility] Work Phone: 6(795)936-119305 [place] [address] 08-01-2024 13:46-0500 Body weight 80.9 kg [facility] Work Phone: 2(978)038-927305 [place] [address] 07-11-2024 12:40-0500 Body mass index (BMI) [Ratio] 26.6 kg/m2 [facility] Work Phone: 4(607)135-472605 [place] [address] 07-11-2024 12:40-0500 Body temperature 96 [degF] [facility] Work Phone: 3(896)614-953105 [place] [address] 07-11-2024 12:40-0500 Body weight 77.11 kg [facility] Work Phone: 4(934)564-808005 [place] [address] 07-11-2024 12:40-0500 Diastolic blood pressure 83 mm[Hg] [facility] Work Phone: 4(647)125-819805 [place] [address] 07-11-2024 12:40-0500 Heart rate 94 /min [facility] Work Phone: 9(718)390-542105 [place] [address] 07-11-2024 12:40-0500 Respiratory rate 16 /min [facility] Work Phone: 3(725)433-606505 [place] [address] 07-11-2024 12:40-0500 SaO2% (BldA) [Mass fraction] 98 % [facility] Work Phone: 7(889)137-276105 [place] [address] 07-11-2024 12:40-0500 Systolic blood pressure 154 mm[Hg] [facility] Work Phone: 7(473)561-519505 [place] [address] 07-10-2024 12:46-0500 Body temperature 96.4 [degF] [facility] Work Phone: 5(048)739-602405 [place] [address] 07-10-2024 12:46-0500 Diastolic blood pressure 63 mm[Hg] [facility] Work Phone: 3(522)634-563205 [place] [address] 07-10-2024 12:46-0500 Heart rate 91 /min [facility] Work Phone: 0(974)816-650705 [place] [address] 07-10-2024 12:46-0500 Respiratory rate 16 /min [facility] Work Phone: 5(614)133-366005 [place] [address] 07-10-2024 12:46-0500 SaO2% (BldA) [Mass fraction] 97 % [facility] Work Phone: 1(727)190-036005 [place] [address] 07-10-2024 12:46-0500 Systolic blood pressure 118 mm[Hg] [facility] Work Phone: 0(665)362-565305 [place] [address] 07-07-2024 12:29-0500 Body temperature 97 [degF] [facility] Work Phone: 2(623)243-189405 [place] [address] 07-07-2024 12:29-0500 Diastolic blood pressure 59 mm[Hg] [facility] Work Phone: 9(267)425-755805 [place] [address] 07-07-2024 12:29-0500 Heart rate 65 /min [facility] Work Phone: 5(585)762-735505 [place] [address] 07-07-2024 12:29-0500 Respiratory rate 16 /min [facility] Work Phone: 1(383)285-923405 [place] [address] 07-07-2024 12:29-0500 SaO2% (BldA) [Mass fraction] 99 % [facility] Work Phone: 6(479)762-517605 [place] [address] 07-07-2024 12:29-0500 Systolic blood pressure 107 mm[Hg] [facility] Work Phone: 6(239)089-784905 [place] [address] 07-05-2024 11:27-0500 Body temperature 95.9 [degF] [facility] Work Phone: 3(551)171-369405 [place] [address] 07-05-2024 11:27-0500 Diastolic blood pressure 83 mm[Hg] [facility] Work Phone: 2(936)918-544405 [place] [address] 07-05-2024 11:27-0500 Heart rate 96 /min [facility] Work Phone: 7(457)011-590505 [place] [address] 07-05-2024 11:27-0500 Respiratory rate 16 /min [facility] Work Phone: 5(615)556-506805 [place] [address] 07-05-2024 11:27-0500 SaO2% (BldA) [Mass fraction] 94 % [facility] Work Phone: 0(814)478-560505 [place] [address] 07-05-2024 11:27-0500 Systolic blood pressure 142 mm[Hg] [facility] Work Phone: 7(322)767-132605 [place] [address] 07-04-2024 12:57-0500 Body mass index (BMI) [Ratio] 26.6 kg/m2 [facility] Work Phone: 6(917)549-463805 [place] [address] 07-04-2024 12:57-0500 Body temperature 96.5 [degF] [facility] Work Phone: 9(412)569-215805 [place] [address] 07-04-2024 12:57-0500 Body weight 77.11 kg [facility] Work Phone: 3(036)188-859605 [place] [address] 07-04-2024 12:57-0500 Diastolic blood pressure 69 mm[Hg] [facility] Work Phone: 0(510)606-916105 [place] [address] 07-04-2024 12:57-0500 Heart rate 97 /min [facility] Work Phone: 9(852)544-001005 [place] [address] 07-04-2024 12:57-0500 Respiratory rate 16 /min [facility] Work Phone: 7(772)809-235605 [place] [address] 07-04-2024 12:57-0500 SaO2% (BldA) [Mass fraction] 100 % [facility] Work Phone: 4(962)518-012305 [place] [address] 07-04-2024 12:57-0500 Systolic blood pressure 128 mm[Hg] [facility] Work Phone: 1(617)088-711705 [place] [address] 07-03-2024 13:17-0500 Body temperature 97.3 [degF] [facility] Work Phone: 8(922)191-179305 [place] [address] 07-03-2024 13:17-0500 Diastolic blood pressure 57 mm[Hg] [facility] Work Phone: 5(843)613-653205 [place] [address] 07-03-2024 13:17-0500 Heart rate 85 /min [facility] Work Phone: 9(820)672-007805 [place] [address] 07-03-2024 13:17-0500 Respiratory rate 18 /min [facility] Work Phone: [facility] 07-03-2024 13:17-0500 SaO2% (BldA) [Mass fraction] 100 % [facility] Work Phone: [facility] 07-03-2024 13:17-0500 Systolic blood pressure 107 mm[Hg] [facility] Work Phone: [facility] 07-03-2024 03:57-0500 Body mass index (BMI) [Ratio] 28.8 kg/m2 [facility] Work Phone: [facility] 07-03-2024 03:57-0500 Body weight 83.3 kg [facility] Work Phone: [facility] 05-24-2024 14:00-0500 Diastolic Blood Pressure Non-Invasive 69 mm[Hg] DR RAYMUNDO VIEIRA DO [facility] 05-24-2024 14:00-0500 Heart rate 91 /min DR RAYMUNDO VIEIRA DO [facility] 05-24-2024 14:00-0500 Respiratory rate 16 /min DR RAYMUNDO VIEIRA DO [facility] 05-24-2024 14:00-0500 Systolic Blood Pressure Non-Invasive 113 mm[Hg] DR RAYMUNDO VIEIRA DO [facility] 05-23-2024 22:49-0500 Diastolic Blood Pressure Non-Invasive 72 mm[Hg] DR RAYMUNDO VIEIRA DO [facility] 05-23-2024 22:49-0500 Heart rate 93 /min DR RAYMUNDO VIEIRA DO [facility] 05-23-2024 22:49-0500 Respiratory rate 18 /min DR RAYMUNDO VIEIRA DO [facility] 05-23-2024 22:49-0500 Systolic Blood Pressure Non-Invasive 124 mm[Hg] DR RAYMUNDO VIEIRA DO [facility] 05-23-2024 20:03-0500 Diastolic Blood Pressure Non-Invasive 59 mm[Hg] DR RAYMUNDO VIEIRA DO [facility] 05-23-2024 20:03-0500 Heart rate 91 /min DR RAYMUNDO VIEIRA DO [facility] 05-23-2024 20:03-0500 Mean blood pressure 67 mm[Hg] DR RAYMUNDO VIEIRA DO [facility] 05-23-2024 20:03-0500 Respiratory rate 14 /min DR RAYMUNDO VIEIRA DO [facility] 05-23-2024 20:03-0500 Systolic Blood Pressure Non-Invasive 83 mm[Hg] DR RAYMUNDO VIEIRA DO [facility] 05-23-2024 19:34-0500 Blood Pressure Cuff Size DR RAYMUNDO VIEIRA DO [facility] 05-23-2024 19:34-[address] RAYMUNDO VIEIRA DO [facility] 05-23-2024 19:34-[address] RAYMUNDO VIEIRA DO [facility] 05-23-2024 19:34-0500 Body temperature 98.06 [degF] DR RAYMUNDO VIEIRA DO [facility] 05-23-2024 19:34-0500 Heart rate 95 /min DR RAYMUNDO VIEIRA DO [facility] 04-29-2024 13:31-0500 Body temperature 98.2 [degF] [facility] Work Phone: 2(772)865-792399 [place] [address] 04-29-2024 13:31-0500 Diastolic blood pressure 70 mm[Hg] [facility] Work Phone: 2(555)273-098405 [place] [address] 04-29-2024 13:31-0500 Heart rate 89 /min [facility] Work Phone: 4(232)562-272605 [place] [address] 04-29-2024 13:31-0500 Respiratory rate 16 /min [facility] Work Phone: 5(378)435-672099 [place] [address] 04-29-2024 13:31-0500 SaO2% (BldA) [Mass fraction] 97 % [facility] Work Phone: 2(714)495-804899 [place] [address] 04-29-2024 13:31-0500 Systolic blood pressure 121 mm[Hg] [facility] Work Phone: 0(513)488-304805 [place] [address] 04-29-2024 10:26-0500 Body weight 73.66 kg [facility] Work Phone: 8(921)022-246199 [place] [address] 04-25-2024 16:40-0500 Body mass index (BMI) [Ratio] 25.4 kg/m2 [facility] Work Phone: 0(734)884-379899 [place] [address] 10-15-2023 17:28-0400 Body temperature 97.2 [degF] [facility] 10-15-2023 17:28-0400 Diastolic blood pressure 75 mm[Hg] [facility] 10-15-2023 17:28-0400 Heart rate 87 /min [facility] 10-15-2023 17:28-0400 Respiratory rate 17 /min [facility] 10-15-2023 17:28-0400 SaO2% (BldA) [Mass fraction] 98 % [facility] 10-15-2023 17:28-0400 Systolic blood pressure 131 mm[Hg] [facility] 10-15-2023 15:35-0400 Body height 170.18 cm [facility] 09-02-2023 09:42-0400 Body temperature 97.6 [degF] [facility] Work Phone: 2(468)327-424405 [place] [address] 09-02-2023 09:42-0400 Diastolic blood pressure 76 mm[Hg] [facility] Work Phone: 3(534)379-912605 [place] [address] 09-02-2023 09:42-0400 Heart rate 101 /min [facility] Work Phone: 6(424)669-187505 [place] [address] 09-02-2023 09:42-0400 Respiratory rate 16 /min [facility] Work Phone: 6(454)618-466905 [place] [address] 09-02-2023 09:42-0400 SaO2% (BldA) [Mass fraction] 95 % [facility] Work Phone: 7(553)401-284105 [place] [address] 09-02-2023 09:42-0400 Systolic blood pressure 148 mm[Hg] [facility] Work Phone: 5(498)329-440305 [place] [address] 09-02-2023 07:42-0400 Body height 170.18 cm [facility] Work Phone: 6(503)741-108105 [place] [address] 09-02-2023 07:42-0400 Body mass index (BMI) [Ratio] 29.7 kg/m2 [facility] Work Phone: 3(715)756-631205 [place] [address] 09-02-2023 07:42-0400 Body weight 86.1 kg [facility] Work Phone: 2(201)601-830105 [place] [address] 09-02-2023 07:42-0400 Inhaled oxygen flow rate 2 L/min [facility] Work Phone: 8(553)152-961005 [place] [address] 06-19-2023 09:59-0500 Respiratory rate 14 /min [facility] Work Phone: 1(170)001-357105 [place] [address] 06-19-2023 09:12-0500 Body mass index (BMI) [Ratio] 26.2 kg/m2 [facility] Work Phone: 1(745)486-143905 [place] [address] 06-19-2023 09:12-0500 Body weight 75.7 kg [facility] Work Phone: 4(252)216-892305 [place] [address] 06-19-2023 09:03-0500 Body height 170.18 cm [facility] Work Phone: 3(421)029-701305 [place] [address] 06-19-2023 09:03-0500 Body temperature 95 [degF] [facility] Work Phone: 1(168)487-658805 [place] [address] 06-19-2023 09:03-0500 Diastolic blood pressure 94 mm[Hg] [facility] Work Phone: 0(369)471-740005 [place] [address] 06-19-2023 09:03-0500 Heart rate 102 /min [facility] Work Phone: 6(208)587-027205 [place] [address] 06-19-2023 09:03-0500 SaO2% (BldA) [Mass fraction] 97 % [facility] Work Phone: 9(400)481-802305 [place] [address] 06-19-2023 09:03-0500 Systolic blood pressure 142 mm[Hg] [facility] Work Phone: 0(857)077-262205 [place] [address] 06-16-2023 11:30-0500 SaO2% (BldA) [Mass fraction] 93 % [facility] Work Phone: 6(291)621-684005 [place] [address] 06-16-2023 07:49-0500 Body temperature 97.6 [degF] [facility] Work Phone: 2(625)925-636705 [place] [address] 06-16-2023 07:49-0500 Diastolic blood pressure 80 mm[Hg] [facility] Work Phone: 7(509)178-207305 [place] [address] 06-16-2023 07:49-0500 Heart rate 79 /min [facility] Work Phone: 7(049)060-613905 [place] [address] 06-16-2023 07:49-0500 Respiratory rate 18 /min [facility] Work Phone: 8(376)527-129605 [place] [address] 06-16-2023 07:49-0500 Systolic blood pressure 119 mm[Hg] [facility] Work Phone: 9(175)599-146205 [place] [address] 06-15-2023 20:35-0500 Inhaled oxygen flow rate 2 L/min [facility] Work Phone: 2(136)226-842405 [place] [address] 06-13-2023 14:21-0500 Body height 170.18 cm [facility] Work Phone: 4(791)486-470705 [place] [address] 06-13-2023 14:21-0500 Body weight 79.42 kg [facility] Work Phone: 3(547)708-306305 [place] [address] 06-13-2023 03:00-0500 Body mass index (BMI) [Ratio] 27.4 kg/m2 [facility] Work Phone: 9(661)589-271205 [place] [address] 06-13-2023 01:36-0500 Diastolic blood pressure 92 mm[Hg] [facility] Work Phone: 6(415)157-181505 [place] [address] 06-13-2023 01:36-0500 Heart rate 98 /min [facility] Work Phone: 2(056)164-448005 [place] [address] 06-13-2023 01:36-0500 Respiratory rate 15 /min [facility] Work Phone: 8(833)864-347805 [place] [address] 06-13-2023 01:36-0500 SaO2% (BldA) [Mass fraction] 95 % [facility] Work Phone: 4(645)400-500605 [place] [address] 06-13-2023 01:36-0500 Systolic blood pressure 131 mm[Hg] [facility] Work Phone: 9(427)952-090305 [place] [address] 06-12-2023 23:01-0500 Inhaled oxygen flow rate 4 L/min [facility] Work Phone: 0(763)830-237505 [place] [address] 06-12-2023 19:59-0500 Body temperature 98.9 [degF] [facility] Work Phone: 8(001)823-134505 [place] [address] 05-26-2023 12:07-0500 Diastolic blood pressure 74 mm[Hg] [facility] Work Phone: 0(110)531-793905 [facility] [place] [address] 05-26-2023 12:07-0500 Heart rate 82 /min [facility] Work Phone: 4(505)235-391205 [place] [address] 05-26-2023 12:07-0500 Respiratory rate 16 /min [facility] Work Phone: 8(444)310-303505 [place] [address] 05-26-2023 12:07-0500 SaO2% (BldA) [Mass fraction] 96 % [facility] Work Phone: 9(998)413-407405 [place] [address] 05-26-2023 12:07-0500 Systolic blood pressure 138 mm[Hg] [facility] Work Phone: 6(084)080-028005 [place] [address] 05-26-2023 10:44-0500 Body mass index (BMI) [Ratio] 26.3 kg/m2 [facility] Work Phone: 8(701)726-383705 [place] [address] 05-26-2023 10:44-0500 Body weight 76.1 kg [facility] Work Phone: 2(534)634-486305 [place] [address] 05-26-2023 09:50-0500 Body temperature 96.6 [degF] [facility] Work Phone: 3(229)468-274205 [place] [address] 05-22-2023 16:02-0500 Respiratory rate 16 /min [facility] Work Phone: 0(151)607-893805 [place] [address] 05-22-2023 14:33-0500 Body mass index (BMI) [Ratio] 26.6 kg/m2 [facility] Work Phone: 0(637)412-197505 [place] [address] 05-22-2023 14:33-0500 Body weight 77.2 kg [facility] Work Phone: 4(073)901-748705 [place] [address] 05-22-2023 13:51-0500 Body height 170.18 cm [facility] Work Phone: 1(765)819-559305 [place] [address] 05-22-2023 13:51-0500 Body temperature 97.3 [degF] [facility] Work Phone: 2(235)566-936005 [place] [address] 05-22-2023 13:51-0500 Diastolic blood pressure 82 mm[Hg] [facility] Work Phone: 8(088)674-147105 [place] [address] 05-22-2023 13:51-0500 Heart rate 107 /min [facility] Work Phone: 8(496)853-230105 [place] [address] 05-22-2023 13:51-0500 SaO2% (BldA) [Mass fraction] 98 % [facility] Work Phone: 9(980)990-529705 [place] [address] 05-22-2023 13:51-0500 Systolic blood pressure 150 mm[Hg] [facility] Work Phone: 4(844)622-282805 [place] [address] 05-07-2023 16:50-0500 Body temperature 98.3 [degF] [facility] Work Phone: 9(662)990-377405 [place] [address] 05-07-2023 16:50-0500 Diastolic blood pressure 68 mm[Hg] [facility] Work Phone: 3(490)285-134505 [place] [address] 05-07-2023 16:50-0500 Heart rate 84 /min [facility] Work Phone: 6(445)423-326105 [place] [address] 05-07-2023 16:50-0500 Respiratory rate 16 /min [facility] Work Phone: 5(605)141-640505 [place] [address] 05-07-2023 16:50-0500 SaO2% (BldA) [Mass fraction] 99 % [facility] Work Phone: 4(940)180-382205 [place] [address] 05-07-2023 16:50-0500 Systolic blood pressure 101 mm[Hg] [facility] Work Phone: 5(845)367-985305 [place] [address] 05-07-2023 12:30-0500 Body temperature 98.4 [degF] [facility] Work Phone: 1(349)065-159905 [place] [address] 05-07-2023 12:30-0500 Diastolic blood pressure 63 mm[Hg] [facility] Work Phone: 0(049)443-675005 [place] [address] 05-07-2023 12:30-0500 Heart rate 85 /min [facility] Work Phone: 8(502)856-711805 [place] [address] 05-07-2023 12:30-0500 Respiratory rate 16 /min [facility] Work Phone: 5(083)985-916705 [place] [address] 05-07-2023 12:30-0500 SaO2% (BldA) [Mass fraction] 92 % [facility] Work Phone: 1(968)620-495005 [place] [address] 05-07-2023 12:30-0500 Systolic blood pressure 94 mm[Hg] [facility] Work Phone: 3(706)200-656605 [place] [address] 05-07-2023 06:00-0500 Body mass index (BMI) [Ratio] 26.4 kg/m2 [facility] Work Phone: 1(803)467-680705 [place] [address] 05-07-2023 06:00-0500 Body weight 76.5 kg [facility] Work Phone: 1(529)823-184905 [place] [address] 05-05-2023 07:53-0500 Inhaled oxygen flow rate 5 L/min [facility] Work Phone: 7(116)902-542905 [place] [address] 05-04-2023 15:22-0500 Body height 170.18 cm [facility] Work Phone: 4(587)060-328605 [place] [address] 05-03-2023 17:00-0500 Heart rate 110 /min [facility] Work Phone: 1(706)700-973305 [place] [address] 05-03-2023 17:00-0500 Inhaled oxygen flow rate 5 L/min [facility] Work Phone: 1(309)767-166905 [place] [address] 05-03-2023 17:00-0500 Respiratory rate 16 /min [facility] Work Phone: 9(018)551-325205 [place] [address] 05-03-2023 17:00-0500 SaO2% (BldA) [Mass fraction] 93 % [facility] Work Phone: 6(889)319-898405 [place] [address] 05-03-2023 16:23-0500 Diastolic blood pressure 84 mm[Hg] [facility] Work Phone: 4(077)582-758405 [place] [address] 05-03-2023 16:23-0500 Systolic blood pressure 134 mm[Hg] [facility] Work Phone: 2(214)756-703705 [place] [address] 05-03-2023 13:37-0500 Body height 170.18 cm [facility] Work Phone: 3(834)899-705405 [place] [address] 05-03-2023 13:37-0500 Body mass index (BMI) [Ratio] 26.6 kg/m2 [facility] Work Phone: 6(444)732-404605 [place] [address] 05-03-2023 13:37-0500 Body temperature 97.1 [degF] [facility] Work Phone: 2(955)481-523005 [place] [address] 05-03-2023 13:37-0500 Body weight 77.1 kg [facility] Work Phone: 7(350)121-521605 [place] [address] 04-18-2023 14:40-0500 Body height 170.18 cm [facility] Work Phone: 3(432)130-944505 [place] [address] 04-18-2023 14:40-0500 Body mass index (BMI) [Ratio] 25.8 kg/m2 [facility] Work Phone: 6(028)099-666105 [place] [address] 04-18-2023 14:40-0500 Body weight 74.84 kg [facility] Work Phone: 6(628)933-682105 [place] [address] 04-18-2023 14:40-0500 Diastolic blood pressure 87 mm[Hg] [facility] Work Phone: 7(367)706-044405 [place] [address] 04-18-2023 14:40-0500 Heart rate 91 /min [facility] Work Phone: 3(859)157-337105 [place] [address] 04-18-2023 14:40-0500 Respiratory rate 17 /min [facility] Work Phone: 0(670)822-387505 [place] [address] 04-18-2023 14:40-0500 SaO2% (BldA) [Mass fraction] 98 % [facility] Work Phone: 1(182)721-126605 [place] [address] 04-18-2023 14:40-0500 Systolic blood pressure 138 mm[Hg] [facility] Work Phone: 1(949)227-641805 [place] [address] 03-22-2023 13:40-0400 Body height 170.18 cm [facility] Work Phone: 8(900)718-954905 [place] [address] 03-22-2023 13:40-0400 Body mass index (BMI) [Ratio] 25.5 kg/m2 [facility] Work Phone: 6(246)383-625005 [place] [address] 03-22-2023 13:40-0400 Body weight 73.93 kg [facility] Work Phone: 6(895)618-195005 [place] [address] 03-22-2023 13:40-0400 Diastolic blood pressure 77 mm[Hg] [facility] Work Phone: 5(583)593-166405 [place] [address] 03-22-2023 13:40-0400 Heart rate 89 /min [facility] Work Phone: 3(920)504-962305 [place] [address] 03-22-2023 13:40-0400 Respiratory rate 18 /min [facility] Work Phone: 8(241)446-138305 [place] [address] 03-22-2023 13:40-0400 SaO2% (BldA) [Mass fraction] 99 % [facility] Work Phone: 1(202)557-532005 [place] [address] 03-22-2023 13:40-0400 Systolic blood pressure 114 mm[Hg] [facility] Work Phone: 7(363)877-718505 [place] [address] 02-28-2023 11:12-0400 Body mass index (BMI) [Ratio] 24.9 kg/m2 [facility] Work Phone: 5(733)748-332605 [place] [address] 02-28-2023 11:12-0400 Body weight 72.12 kg [facility] Work Phone: 0(071)064-549605 [place] [address] 02-28-2023 11:12-0400 Diastolic blood pressure 74 mm[Hg] [facility] Work Phone: 9(189)638-634105 [place] [address] 02-28-2023 11:12-0400 Heart rate 103 /min [facility] Work Phone: 2(483)863-523805 [place] [address] 02-28-2023 11:12-0400 Respiratory rate 18 /min [facility] Work Phone: 8(355)405-967005 [place] [address] 02-28-2023 11:12-0400 Systolic blood pressure 109 mm[Hg] [facility] Work Phone: 6(281)975-058205 [place] [address] 02-03-2023 15:12-0400 SaO2% (BldA) [Mass fraction] 97 % [facility] Work Phone: 8(374)695-934205 [place] [address] 02-03-2023 14:58-0400 Body temperature 97 [degF] [facility] Work Phone: 8(168)866-468605 [place] [address] 02-03-2023 14:58-0400 Diastolic blood pressure 71 mm[Hg] [facility] Work Phone: 0(612)077-149705 [place] [address] 02-03-2023 14:58-0400 Heart rate 92 /min [facility] Work Phone: 4(468)229-892405 [place] [address] 02-03-2023 14:58-0400 Respiratory rate 18 /min [facility] Work Phone: 2(832)002-754705 [place] [address] 02-03-2023 14:58-0400 Systolic blood pressure 99 mm[Hg] [facility] Work Phone: 9(296)901-193305 [place] [address] 02-03-2023 13:19-0400 Body height 170.18 cm [facility] Work Phone: 8(880)180-588205 [place] [address] 02-03-2023 13:19-0400 Body weight 71.1 kg [facility] Work Phone: 0(913)907-011005 [place] [address] 02-03-2023 10:30-0400 Inhaled oxygen flow rate 2 L/min [facility] Work Phone: 2(162)589-431105 [place] [address] 02-03-2023 03:59-0400 Body mass index (BMI) [Ratio] 24.5 kg/m2 [facility] Work Phone: 5(571)074-854405 [place] [address] 02-02-2023 21:45-0400 Inhaled oxygen concentration 2 % [facility] Work Phone: 7(229)435-170105 [place] [address] 02-02-2023 17:59-0400 Heart rate 112 /min [facility] Work Phone: 2(619)810-086905 [place] [address] 02-02-2023 17:59-0400 Inhaled oxygen flow rate 2 L/min [facility] Work Phone: 0(204)211-396005 [place] [address] 02-02-2023 17:59-0400 Respiratory rate 18 /min [facility] Work Phone: 5(805)655-942905 [place] [address] 02-02-2023 17:59-0400 SaO2% (BldA) [Mass fraction] 95 % [facility] Work Phone: 0(197)459-591005 [place] [address] 02-02-2023 16:00-0400 Body temperature 97 [degF] [facility] Work Phone: 9(330)072-054505 [place] [address] 02-02-2023 16:00-0400 Diastolic blood pressure 97 mm[Hg] [facility] Work Phone: 3(392)464-049205 [place] [address] 02-02-2023 16:00-0400 Systolic blood pressure 134 mm[Hg] [facility] Work Phone: 4(616)665-266005 [place] [address] 02-02-2023 11:21-0400 Body height 167.64 cm [facility] Work Phone: 1(519)167-186105 [place] [address] 02-02-2023 11:21-0400 Body mass index (BMI) [Ratio] 27.1 kg/m2 [facility] Work Phone: 2(509)424-155605 [place] [address] 02-02-2023 11:21-0400 Body weight 76.2 kg [facility] Work Phone: 5(522)434-077905 [place] [address] 01-03-2023 11:42-0400 Body temperature 98 [degF] [facility] Work Phone: 4(708)204-844405 [place] [address] 01-03-2023 11:42-0400 Diastolic blood pressure 66 mm[Hg] [facility] Work Phone: 7(804)332-315705 [place] [address] 01-03-2023 11:42-0400 Heart rate 92 /min [facility] Work Phone: 4(562)868-107305 [place] [address] 01-03-2023 11:42-0400 Respiratory rate 15 /min [facility] Work Phone: 0(686)489-180805 [place] [address] 01-03-2023 11:42-0400 SaO2% (BldA) [Mass fraction] 100 % [facility] Work Phone: 6(044)450-665405 [place] [address] 01-03-2023 11:42-0400 Systolic blood pressure 101 mm[Hg] [facility] Work Phone: 8(167)183-657905 [place] [address] 01-03-2023 05:29-0400 Body mass index (BMI) [Ratio] 25.9 kg/m2 [facility] Work Phone: 0(450)193-419305 [place] [address] 01-03-2023 05:29-0400 Body weight 73.1 kg [facility] Work Phone: 0(792)769-517505 [place] [address] 01-02-2023 12:06-0400 Body height 167.64 cm [facility] Work Phone: 1(191)624-929905 [place] [address] 01-02-2023 08:20-0400 Inhaled oxygen flow rate 2 L/min [facility] Work Phone: 7(522)198-503305 [place] [address] 01-01-2023 16:36-0400 Body temperature 98.2 [degF] [facility] Work Phone: 8(184)718-216505 [place] [address] 01-01-2023 16:36-0400 Diastolic blood pressure 96 mm[Hg] [facility] Work Phone: 9(097)451-129105 [place] [address] 01-01-2023 16:36-0400 Heart rate 105 /min [facility] Work Phone: 0(461)950-691205 [place] [address] 01-01-2023 16:36-0400 Inhaled oxygen flow rate 2 L/min [facility] Work Phone: 4(675)458-375205 [place] [address] 01-01-2023 16:36-0400 Respiratory rate 18 /min [facility] Work Phone: 4(509)912-011705 [place] [address] 01-01-2023 16:36-0400 SaO2% (BldA) [Mass fraction] 98 % [facility] Work Phone: 4(267)527-638105 [place] [address] 01-01-2023 16:36-0400 Systolic blood pressure 140 mm[Hg] [facility] Work Phone: 2(034)421-320105 [place] [address] 01-01-2023 12:11-0400 Body height 167.64 cm [facility] Work Phone: 2(651)728-869605 [place] [address] 01-01-2023 12:11-0400 Body mass index (BMI) [Ratio] 27.1 kg/m2 [facility] Work Phone: 8(209)691-430005 [place] [address] 01-01-2023 12:11-0400 Body weight 76.3 kg [facility] Work Phone: 6(607)545-754005 [place] [address] 10-01-2022 11:09-0400 Body height 167.[address] Nathaly Lainez Work Phone: 0(232)539-454405 [place] [address] 10-01-2022 11:09-0400 Body mass index (BMI) [Ratio] 25.2 kg/m2 Dr. Nathaly Lainez Work Phone: 3(333)994-780505 [place] [address] 10-01-2022 11:09-0400 Body temperature 95.7 [degF] Dr. Nathaly L[facility] Work Phone: 5(893)746-656799 [place] [address] 10-01-2022 11:09-0400 Body weight 70.[address] Nathaly Lainez Work Phone: 3(056)925-952105 [place] [address] 10-01-2022 11:09-0400 Diastolic blood pressure 80 mm[Hg] Dr. Nathaly [facility] Work Phone: 6(294)807-328305 [place] [address] 10-01-2022 11:09-0400 Heart rate 102 /min Dr. Nathaly Lainez Work Phone: 5(419)033-553305 [place] [address] 10-01-2022 11:09-0400 Respiratory rate 24 /min Dr. Nathaly Lainez Work Phone: 9(901)768-387805 [place] [address] 10-01-2022 11:09-0400 SaO2% (BldA) [Mass fraction] 100 % Dr. Nathaly Lainez Work Phone: 5(285)303-691758 [address] 10-01-2022 11:09-0400 Systolic blood pressure 119 mm[Hg] Dr. Nathaly Laine[facility] Work Phone: 9(215)507-552599 [place] [address] 09-18-2022 18:57-0400 Diastolic blood pressure 83 mm[Hg] Dr. Nathaly Lainez Work Phone: 1(063)855-637205 [place] [address] 09-18-2022 18:57-0400 Heart rate 74 /min Dr. Nathaly Lainez Work Phone: 3(482)131-295599 [place] [address] 09-18-2022 18:57-0400 Respiratory rate 16 /min Dr. Nathaly Lainez Work Phone: 7(216)217-201305 [place] [address] 09-18-2022 18:57-0400 SaO2% (BldA) [Mass fraction] 98 % Dr. Nathaly Lainez Work Phone: 9(798)456-016405 [place] [address] 09-18-2022 18:57-0400 Systolic blood pressure 126 mm[Hg] Dr. Nathaly Laine[facility] Work Phone: 5(162)800-261505 [place] [address] 09-18-2022 14:13-0400 Body height 167.[address] Nathaly Lainez Work Phone: 8(575)390-664305 [place] [address] 09-18-2022 14:13-0400 Body mass index (BMI) [Ratio] 25.2 kg/m2 Dr. Nathaly Lainez Work Phone: 4(973)955-770705 [place] [address] 09-18-2022 14:130400 Body temperature 97.6 [degF] Dr. Nathaly Lainez Work Phone: 2(735)210-000105 [place] [address] 09-18-2022 14:130400 Body weight 70.[address] Nathaly Lainez Work Phone: 9(986)043-781005 [place] [address] 09-11-2022 20:19-0400 Diastolic blood pressure 92 mm[Hg] Dr. Nathaly Lainez Work Phone: 6(903)226-102305 [place] [address] 09-11-2022 20:19-0400 Heart rate 101 /min Dr. Nathaly Lainez Work Phone: 2(483)431-491205 [place] [address] 09-11-2022 20:19-0400 Respiratory rate 17 /min Dr. Nathaly Lainez Work Phone: 7(945)922-600105 [place] [address] 09-11-2022 20:19-0400 SaO2% (BldA) [Mass fraction] 96 % Dr. Nathaly Lainez Work Phone: 4(562)409-766605 [place] [address] 09-11-2022 20:19-0400 Systolic blood pressure 142 mm[Hg] Dr. Nathaly Lainez Work Phone: 1(701)281-872605 [place] [address] 09-11-2022 14:27-0400 Body height 170.[address] Nathaly Lainez Work Phone: 8(169)680-790505 [place] [address] 09-11-2022 14:27-0400 Body mass index (BMI) [Ratio] 24.4 kg/m2 Dr. Nathaly Lainez Work Phone: 8(207)232-547105 [place] [address] 09-11-2022 14:27-0400 Body temperature 97.2 [degF] Dr. Nathaly Lainez Work Phone: 0(903)485-079405 [place] [address] 09-11-2022 14:27-0400 Body weight 70.[address] Nathaly Lainez Work Phone: 3(966)947-766305 [place] [address] 09-09-2022 23:43-0400 Diastolic blood pressure 74 mm[Hg] Dr. Nathaly Lainez Work Phone: 9(234)561-984105 [place] [address] 09-09-2022 23:43-0400 Systolic blood pressure 123 mm[Hg] Dr. Nathaly Lainez Work Phone: 6(879)114-034905 [place] [address] 09-09-2022 18:22-0400 Body height 170.[address] Nathaly Lainez Work Phone: 3(008)948-766905 [place] [address] 09-09-2022 18:22-0400 Body mass index (BMI) [Ratio] 24.4 kg/m2 Dr. Nathaly Lainez Work Phone: 3(917)554-651005 [place] [address] 09-09-2022 18:22-0400 Body temperature 97.4 [degF] Dr. Nathaly Lainez Work Phone: 6(650)392-112705 [place] [address] 09-09-2022 18:22-0400 Body weight 70.[address] Nathaly Lainez Work Phone: 9(270)174-504205 [place] [address] 09-09-2022 18:22-0400 Heart rate 111 /min Dr. Nathaly Lainez Work Phone: 3(840)327-197505 [place] [address] 09-09-2022 18:22-0400 Respiratory rate 16 /min Dr. Nathaly Lainez Work Phone: 5(459)651-001105 [place] [address] 09-09-2022 18:22-0400 SaO2% (BldA) [Mass fraction] 99 % Dr. Nathaly Lainez Work Phone: 4(026)252-677905 [place] [address] 09-05-2022 15:02-0400 Respiratory rate 18 /min Dr. Nathaly Lainez Work Phone: 1(590)569-664705 [place] [address] 09-05-2022 12:29-0400 Body height 170.[address] Nathaly Lainez Work Phone: 3(596)221-143305 [place] [address] 09-05-2022 12:29-0400 Body mass index (BMI) [Ratio] 26.3 kg/m2 Dr. Nathaly Lainez Work Phone: 2(928)726-252905 [place] [address] 09-05-2022 12:29-0400 Body temperature 98.3 [degF] Dr. Nathaly Lainez Work Phone: 4(415)639-134605 [place] [address] 09-05-2022 12:29-0400 Body weight 76.[address] Nathaly Lainez Work Phone: 6(392)149-940605 [place] [address] 09-05-2022 12:29-0400 Diastolic blood pressure 90 mm[Hg] Dr. Nathaly Lainez Work Phone: 6(665)984-809905 [place] [address] 09-05-2022 12:29-0400 Heart rate 111 /min Dr. Nathaly Lainez Work Phone: 9(266)576-734205 [place] [address] 09-05-2022 12:29-0400 SaO2% (BldA) [Mass fraction] 98 % Dr. Nathaly Lainez Work Phone: 4(977)522-832705 [place] [address] 09-05-2022 12:29-0400 Systolic blood pressure 139 mm[Hg] Dr. Nathaly Lainez Work Phone: 0(837)881-813505 [place] [address] 09-02-2022 13:40-0400 Body temperature 97.9 [degF] Dr. Nathaly Lainez Work Phone: 5(204)432-379605 [place] [address] 09-02-2022 13:40-0400 Diastolic blood pressure 66 mm[Hg] Dr. Nathaly Lainez Work Phone: 6(610)936-252705 [place] [address] 09-02-2022 13:40-0400 Heart rate 98 /min Dr. Nathaly Lainez Work Phone: 5(843)691-292905 [place] [address] 09-02-2022 13:40-0400 Respiratory rate 18 /min Dr. Nathaly Lainez Work Phone: 0(980)644-207805 [place] [address] 09-02-2022 13:40-0400 SaO2% (BldA) [Mass fraction] 96 % Dr. Nathaly Lainez Work Phone: 2(823)466-873005 [place] [address] 09-02-2022 13:40-0400 Systolic blood pressure 108 mm[Hg] Dr. Nathaly Lainez Work Phone: 6(759)424-347905 [place] [address] 08-31-2022 16:10-0400 Inhaled oxygen flow rate 4 L/min Dr. Nathaly Lainez Work Phone: 7(565)075-482999 [place] [address] 08-31-2022 14:32-0400 Body height 170.[address] Nathaly Lainez Work Phone: 1(520)194-288905 [place] [address] 08-31-2022 14:32-0400 Body weight 70.[address] Nathaly Lainez Work Phone: 7(149)720-928105 [place] [address] 08-31-2022 09:14-0400 Body mass index (BMI) [Ratio] 24.4 kg/m2 Dr. Nathaly Lainez Work Phone: 7(375)358-915005 [place] [address] 08-30-2022 17:01-0400 Diastolic blood pressure 101 mm[Hg] Dr. Nathaly Lainez Work Phone: 7(926)410-848105 [place] [address] 08-30-2022 17:01-0400 Heart rate 118 /min Dr. Nathaly Lainez Work Phone: 9(363)809-129205 [place] [address] 08-30-2022 17:01-0400 Respiratory rate 18 /min Dr. Nathaly Lainez Work Phone: 2(764)076-592905 [place] [address] 08-30-2022 17:01-0400 SaO2% (BldA) [Mass fraction] 97 % Dr. Nathaly Lainez Work Phone: 1(129)922-096505 [place] [address] 08-30-2022 17:01-0400 Systolic blood pressure 142 mm[Hg] Dr. Nathaly Lainez Work Phone: 5(854)728-647305 [place] [address] 08-30-2022 16:13-0400 Body temperature 98.4 [degF] Dr. Nathaly Lainez Work Phone: 3(063)613-358405 [place] [address] 08-30-2022 13:53-0400 Body height 170.[address] Nathaly Lainez Work Phone: 1(722)870-322205 [place] [address] 08-30-2022 13:53-0400 Body mass index (BMI) [Ratio] 24.4 kg/m2 Dr. Nathaly Lainez Work Phone: 6(356)[phone] [place] [address] 08-30-2022 13:53-0400 Body weight 70.[address] Nathaly Lainez Work Phone: 6(292)693-104399 [place] [address] 08-23-2022 13:03-0400 Body weight 73.[address] Nathaly Lainez Work Phone: 8(951)722-395599 [place] [address] 08-23-2022 13:03-0400 Diastolic blood pressure 81 mm[Hg] Dr. Nathaly Lainez Work Phone: 6(930)[phone] [place] [address] 08-23-2022 13:03-0400 Heart rate 110 /min Dr. Nathaly Lainez Work Phone: 3(285)145-923499 [place] [address] 08-23-2022 13:03-0400 Respiratory rate 16 /min Dr. Nathaly Lainez Work Phone: 5(453)294-425599 [place] [address] 08-23-2022 13:03-0400 SaO2% (BldA) [Mass fraction] 99 % Dr. Nathaly Lainez Work Phone: 9(232)357-281299 [place] [address] 08-23-2022 13:03-0400 Systolic blood pressure 124 mm[Hg] Dr. Nathaly Lainez Work Phone: 6(389)218-042699 [place] [address] 08-14-2022 16:50-0400 Diastolic blood pressure 68 mm[Hg] Dr. Nathaly Lainez Work Phone: 4(728)488-187599 [place] [address] 08-14-2022 16:50-0400 Heart rate 89 /min Dr. Nathaly Lainez Work Phone: 7(687)736-843699 [place] [address] 08-14-2022 16:50-0400 Respiratory rate 16 /min Dr. Nathaly Lainez Work Phone: 7(814)533-270699 [place] [address] 08-14-2022 16:50-0400 SaO2% (BldA) [Mass fraction] 95 % Dr. Nathaly Lainez Work Phone: 3(361)594-436799 [place] [address] 08-14-2022 16:50-0400 Systolic blood pressure 142 mm[Hg] Dr. Nathaly Lainez Work Phone: 6(137)709-381399 [place] [address] 08-14-2022 13:51-0400 Body temperature 97.8 [degF] Dr. Nathaly Lainez Work Phone: 7(801)452-702005 [place] [address] 08-14-2022 13:37-0400 Body height 170.[address] Nathaly Lainez Work Phone: 7(859)154-463405 [place] [address] 08-14-2022 13:37-0400 Body mass index (BMI) [Ratio] 24.7 kg/m2 Dr. Nathaly Lainez Work Phone: 8(567)380-951705 [place] [address] 08-14-2022 13:37-0400 Body weight 71.[address] Nathaly Lainez Work Phone: 5(253)393-590005 [place] [address] 08-10-2022 07:07-0500 Body height 170.[address] Nathaly Lainez Work Phone: 2(037)028-816405 [place] [address] 08-10-2022 07:07-0500 Body weight 69.[address] Nathaly Lainez Work Phone: 4(835)569-743805 [place] [address] 08-09-2022 15:33-0500 Body mass index (BMI) [Ratio] 24.1 kg/m2 Dr. Nathaly Lainez Work Phone: 7(263)720-821305 [place] [address] 08-09-2022 10:47-0500 Body temperature 98 [degF] Dr. Nathaly Lainez Work Phone: 0(520)757-244005 [place] [address] 08-09-2022 10:47-0500 Diastolic blood pressure 89 mm[Hg] Dr. Nathaly Lainez Work Phone: 6(531)872-345305 [place] [address] 08-09-2022 10:47-0500 Heart rate 103 /min Dr. Nathaly Lainez Work Phone: 0(159)675-036905 [place] [address] 08-09-2022 10:47-0500 Respiratory rate 18 /min Dr. Nathaly Lainez Work Phone: 7(827)843-548905 [place] [address] 08-09-2022 10:47-0500 SaO2% (BldA) [Mass fraction] 97 % Dr. Nathaly Lainez Work Phone: 2(121)319-838505 [place] [address] 08-09-2022 10:47-0500 Systolic blood pressure 136 mm[Hg] Dr. Nathaly Lainez Work Phone: 6(465)273-621905 [place] [address] 08-06-2022 16:45-0500 Body temperature 97.8 [degF] Dr. Nathaly Lainez Work Phone: 7(461)990-475705 [place] [address] 08-06-2022 16:45-0500 Diastolic blood pressure 78 mm[Hg] Dr. Nathaly Lainez Work Phone: 9(223)447-311505 [place] [address] 08-06-2022 16:45-0500 Heart rate 76 /min Dr. Nathaly Lainez Work Phone: 9(893)262-327905 [place] [address] 08-06-2022 16:45-0500 Respiratory rate 16 /min Dr. Nathaly Lainez Work Phone: 9(000)355-003005 [place] [address] 08-06-2022 16:45-0500 SaO2% (BldA) [Mass fraction] 99 % Dr. Nathaly Lainez Work Phone: 9(366)047-499005 [place] [address] 08-06-2022 16:45-0500 Systolic blood pressure 143 mm[Hg] Dr. Nathaly Lainez Work Phone: 8(560)691-853605 [place] [address] 08-06-2022 14:43-0500 Body mass index (BMI) [Ratio] 24.2 kg/m2 Dr. Nathaly Lainez Work Phone: 2(959)446-274005 [place] [address] 08-06-2022 14:43-0500 Body weight 70.[address] Nathaly Lainez Work Phone: 0(663)906-350505 [place] [address] 08-03-2022 16:26-0500 Diastolic blood pressure 74 mm[Hg] Dr. Nathaly Lainez Work Phone: 3(236)120-387305 [place] [address] 08-03-2022 16:26-0500 Heart rate 107 /min Dr. Nathaly Lainez Work Phone: 5(388)091-567505 [place] [address] 08-03-2022 16:26-0500 Respiratory rate 18 /min Dr. Nathaly Lainez Work Phone: 3(600)083-705805 [place] [address] 08-03-2022 16:26-0500 SaO2% (BldA) [Mass fraction] 94 % Dr. Nathaly Lainez Work Phone: 9(079)309-704605 [place] [address] 08-03-2022 16:26-0500 Systolic blood pressure 114 mm[Hg] Dr. Nathaly Lainez Work Phone: 7(347)726-523505 [place] [address] 08-03-2022 12:19-0500 Body height 170.[address] Nathaly Lainez Work Phone: 5(380)684-902505 [place] [address] 08-03-2022 12:19-0500 Body mass index (BMI) [Ratio] 25.2 kg/m2 Dr. Nathaly Lainez Work Phone: 6(448)393-899905 [place] [address] 08-03-2022 12:19-0500 Body temperature 97.7 [degF] Dr. Nathaly Lainez Work Phone: 5(841)622-948305 [place] [address] 08-03-2022 12:19-0500 Body weight 73.[address] Nathaly Lainez Work Phone: 6(898)560-574505 [place] [address] 07-25-2022 12:13-0500 Diastolic blood pressure 90 mm[Hg] Dr. Nathaly Lainez Work Phone: 9(340)687-806305 [place] [address] 07-25-2022 12:13-0500 Heart rate 78 /min Dr. Nathaly Lainez Work Phone: 6(922)713-056605 [place] [address] 07-25-2022 12:13-0500 Respiratory rate 18 /min Dr. Nathaly Lainez Work Phone: 0(715)988-384505 [place] [address] 07-25-2022 12:13-0500 SaO2% (BldA) [Mass fraction] 98 % Dr. Nathaly Lainez Work Phone: 1(975)372-166405 [place] [address] 07-25-2022 12:13-0500 Systolic blood pressure 142 mm[Hg] Dr. Nathaly Lainez Work Phone: 5(888)210-844305 [place] [address] 07-25-2022 09:16-0500 Body height 170.[address] Nathaly Lainez Work Phone: 0(590)203-931505 [place] [address] 07-25-2022 09:16-0500 Body mass index (BMI) [Ratio] 26.3 kg/m2 Dr. Nathaly Lainez Work Phone: [facility] 07-25-2022 09:16-0500 Body temperature 97.4 [degF] Dr. Nathaly Lainez Work Phone: [facility] 07-25-2022 09:16-0500 Body weight 76.[address] Nathaly Lainez Work Phone: [facility] 06-08-2022 14:09-0500 Body height 167.6 cm Jerry Robert PA-C Work Phone: [facility] 06-08-2022 14:09-0500 Body mass index (BMI) [Ratio] 25.02 kg/m2 Jerry Robert PA-C Work Phone: [facility] 06-08-2022 14:09-0500 Body weight 70.31 kg Jerry Robert PA-C Work Phone: [facility] 06-08-2022 14:09-0500 Diastolic blood pressure 95 mm[Hg] Jerry Robert PA-C Work Phone: [facility] 06-08-2022 14:09-0500 Heart rate 117 /min Jerry Robert PA-C Work Phone: [facility] 06-08-2022 14:09-0500 Systolic blood pressure 135 mm[Hg] Jerry Robert PA-C Work Phone: [facility] 05-19-2022 19:29-0500 Heart rate 102 /min Dr. Nathaly Lainez Work Phone: [facility] 05-19-2022 19:29-0500 SaO2% (BldA) [Mass fraction] 97 % Dr. Nathaly Lainez Work Phone: [facility] 05-19-2022 14:45-0500 Body height 170.[address] Nathaly Lainez Work Phone: [facility] Work Phone: 05-19-2022 14:45-0500 Body mass index (BMI) [Ratio] 24.3 kg/m2 Dr. Nathaly Lainez Work Phone: 0(373)166-346605 [place] [address] 05-19-2022 14:45-0500 Body temperature 96 [degF] Dr. Nathaly Lainez Work Phone: 8(807)580-788805 [place] [address] 05-19-2022 14:45-0500 Body weight 70.[address] Nathaly Lainez Work Phone: 3(603)031-894105 [place] [address] 05-19-2022 14:45-0500 Diastolic blood pressure 87 mm[Hg] Dr. Nathaly Lainez Work Phone: 2(784)799-505505 [place] [address] 05-19-2022 14:45-0500 Respiratory rate 18 /min Dr. Nathaly Lainez Work Phone: 9(783)329-049505 [place] [address] 05-19-2022 14:45-0500 Systolic blood pressure 127 mm[Hg] Dr. Nathaly Lainez Work Phone: 0(436)234-900805 [place] [address] 05-10-2022 00:56-0500 Diastolic blood pressure 75 mm[Hg] Dr. Nathaly Lainez Work Phone: 7(870)764-369505 [place] [address] 05-10-2022 00:56-0500 Heart rate 101 /min Dr. Nathaly Lainez Work Phone: 6(894)337-488905 [place] [address] 05-10-2022 00:56-0500 Respiratory rate 17 /min Dr. Nathaly Lainez Work Phone: 6(905)968-713605 [place] [address] 05-10-2022 00:56-0500 SaO2% (BldA) [Mass fraction] 94 % Dr. Nathaly Lainez Work Phone: 1(850)214-150605 [place] [address] 05-10-2022 00:56-0500 Systolic blood pressure 118 mm[Hg] Dr. Nathaly Lainez Work Phone: 3(831)941-217905 [place] [address] 05-09-2022 19:01-0500 Body height 170.[address] Nathaly Lainez Work Phone: 3(476)009-064905 [place] [address] Work Phone: 05-09-2022 19:01-0500 Body mass index (BMI) [Ratio] 24.3 kg/m2 Dr. Nathaly Lainez Work Phone: [facility] 05-09-2022 19:01-0500 Body temperature 97.5 [degF] Dr. Nathaly Lainez Work Phone: [facility] 05-09-2022 19:01-0500 Body weight 70.[address] Nathaly Lainez Work Phone: [facility] 04-18-2022 14:04-0500 Body height 170.18 cm [facility] Work Phone: 04-18-2022 14:04-0500 Body mass index (BMI) [Ratio] 24.7 kg/m2 [facility] 04-18-2022 14:04-0500 Body temperature 97.2 [degF] [facility] 04-18-2022 14:04-0500 Body weight 71.6 kg [facility] 04-18-2022 14:04-0500 Diastolic blood pressure 88 mm[Hg] [facility] 04-18-2022 14:04-0500 Heart rate 115 /min [facility] 04-18-2022 14:04-0500 Respiratory rate 16 /min [facility] 04-18-2022 14:04-0500 SaO2% (BldA) [Mass fraction] 97 % [facility] 04-18-2022 14:04-0500 Systolic blood pressure 139 mm[Hg] [facility] 04-17-2022 13:53-0500 Body height 170.18 cm [facility] Work Phone: 04-17-2022 13:53-0500 Body mass index (BMI) [Ratio] 24.3 kg/m2 [facility] 04-17-2022 13:53-0500 Body temperature 97.9 [degF] [facility] 04-17-2022 13:53-0500 Body weight 70.3 kg [facility] 04-17-2022 13:53-0500 Diastolic blood pressure 80 mm[Hg] [facility] 04-17-2022 13:53-0500 Heart rate 130 /min [facility] 04-17-2022 13:53-0500 Respiratory rate 18 /min [facility] 04-17-2022 13:53-0500 SaO2% (BldA) [Mass fraction] 97 % [facility] 04-17-2022 13:53-0500 Systolic blood pressure 125 mm[Hg] [facility] 03-27-2022 12:26-0400 Diastolic blood pressure 90 mm[Hg] [facility] 03-27-2022 12:26-0400 Heart rate 103 /min [facility] 03-27-2022 12:26-0400 Respiratory rate 16 /min [facility] 03-27-2022 12:26-0400 SaO2% (BldA) [Mass fraction] 96 % [facility] 03-27-2022 12:26-0400 Systolic blood pressure 130 mm[Hg] [facility] 03-27-2022 10:29-0400 Body height 170.18 cm [facility] Work Phone: 03-27-2022 10:29-0400 Body mass index (BMI) [Ratio] 24.8 kg/m2 [facility] 03-27-2022 10:29-0400 Body temperature 96.7 [degF] [facility] 03-27-2022 10:29-0400 Body weight 72.07 kg [facility] 08-13-2021 15:21-0500 Diastolic blood pressure 80 mm[Hg] [facility] Unknown [facility] 08-13-2021 15:21-0500 Heart rate 73 /min [facility] Unknown [facility] 08-13-2021 15:21-0500 Respiratory rate 16 /min [facility] Unknown [facility] 08-13-2021 15:21-0500 SaO2% (BldA) [Mass fraction] 99 % [facility] Unknown [facility] 08-13-2021 15:21-0500 Systolic blood pressure 131 mm[Hg] [facility]cp Unknown [facility] 08-13-2021 12:41-0500 Body temperature 97.52 [degF] Pcp Unknown [facility] Encounters Encounter Date Encounter Type Care Provider Facility Start: 03-31-2025 ambulatory Lei Justin Fac ility:[facility] Start: 03-30-2025 ambulatory Zohreh Mckeon [facility] Fa cility:[facility] Start: 03-30-2025 Evaluation and management of inpatient Lei Justin Facility:[facility] Start: 02-11-2025 [facility] Work Phone: Start: 02-10-2025 Dr. Riccardo Shaikh DO [facility] Work Phone: Start: 02-09-2025 Dr. Riccardo Shaikh DO [facility] Work Phone: Start: 02-08-2025 Dr. Talisha chen MD [facility] Work Phone: Start: 02-07-2025 Dr. Talisha chen MD [facility] Work Phone: Start: 02-06-2025 Dr. Talisha chen MD [facility] Work Phone: Start: 02-05-2025 Dr. Talisha chen MD [facility] Work Phone: Start: 02-04-2025 Dr. Talisha chen MD [facility] Work Phone: Start: 02-03-2025 Dr. Talisha chen MD [facility] Work Phone: Start: 02-02-2025 Dr. Talisha chen MD [facility] Work Phone: Start: 02-01-2025 Dr. Lei Justin DO [facility] Work Phone: Start: 01-31-2025 ambulatory Lei Justin Fac ility:[facility] Start: 01-31-2025 End: 02-11-2025 Evaluation and management of inpatient Zohrehdmitriy Mckeon [employer] Work Phone: -Medical Surgical 3 Start: 01-31-2025 End: 02-11-2025 Dr. Riccardo Shaikh -[facility] 3 Work Phone: Start: 01-31-2025 Dr. Lei Justin DO [facility] In[facility] Work Phone: Start: 01-30-2025 Dr. Nicole Trujillo DO -[facility] Inpatient Physicians Work Phone: Start: 01-29-2025 ambulatory Lei Justin Fac ility:[facility] Start: 01-29-2025 Evaluation and management of inpatient Dr. Latricia Yao DO [facility] Work Phone: Start: 01-29-2025 observation encounter Zohreh Mckeon NON [employer]ICENSED [employer] Work Phone: -Medical Surgical 3 Start: 01-29-2025 Dr. Latricia Manriquez [facility] Inpatient [facility]icians Work Phone: Start: 12-12-2024 End: 12-12-2024 Zohreh Mckeon NON LICENSED [employer]-C Work Phone: -Emergency Department Work Phone: Start: 12-12-2024 End: 12-12-2024 Emergency department patient visit Zohreh Mckeon NON LICENSED [employer]-C Work Phone: -Emergency Department Start: 09-29-2024 End: 09-29-2024 [facility] Work Phone: -Emergency Department Work Phone: Start: 09-29-2024 End: 09-29-2024 Emergency department patient visit [facility] Work Phone: [facility] Work Phone: Start: 09-24-2024 ambulatory Zohreh Mckeon [facility] Fa cility:[facility] Start: 09-23-2024 ambulatory Zohreh Mckeon [facility] Fa cility:[facility] Start: 09-22-2024 ambulatory Zohreh Mckeon [facility] Fa cility:[facility] Start: 09-21-2024 End: 09-21-2024 [facility] Work Phone: -Emergency Department Work Phone: Start: 09-21-2024 End: 09-21-2024 Emergency department patient visit [facility] Work Phone: [facility] Work Phone: Start: 09-21-2024 ambulatory [facility] Fa cility:[facility] Start: 09-20-2024 ambulatory [facility] Fa cility:[facility] Start: 09-19-2024 ambulatory [facility] Fa cility:[facility] Start: 09-18-2024 ambulatory [facility] Fa cility:[facility] Start: 09-17-2024 ambulatory Nichelle Mcneil [place] ty:[facility] Start: 09-16-2024 Dr. Latricia Aaron MD [...] Phone: Start: 09-11-2024 Dr. Brenda Posadas MD [facility] Work Phone: Start: 09-10-2024 Dr. Brenda Posadas MD -[facility] Work Phone: Start: 09-09-2024 ambulatory [facility] Facility :[facility] Start: 09-09-2024 End: 09-16-2024 Evaluation and management of inpatient [facility] Work Phone: [facility] Work Phone: Start: 09-09-2024 End: 09-16-2024 Dr. Latricia Aaron MD -[facility] Work Phone: Start: 09-08-2024 Dr. Brenda Posadas MD -[facility] Work Phone: Start: 09-07-2024 ambulatory Brenda Posadas Facility:[facility] Start: 09-07-2024 observation encounter [facility] Work Phone: [facility] Work Phone: Start: 09-07-2024 Dr. Rosaura friedman MD -Progressive Care Unit Work Phone: Start: 09-05-2024 End: 09-05-2024 [facility] Work Phone: -Emergency Department Work Phone: Start: 09-05-2024 End: 09-05-2024 Emergency department patient visit [facility] Work Phone: [facility] Work Phone: Start: 09-02-2024 Dr. Latricia Aaron MD -[facility] Work Phone: Start: 09-01-2024 ambulatory Zohreh Mckeon [facility] Fa cility:[facility] Start: 09-01-2024 Dr. Alli Brito MD -[facility] Start: 09-01-2024 Dr. Latricia Aaron MD -[facility] [...] End: 09-02-2024 Evaluation and management of inpatient [facility] Work Phone: [facility] Work Phone: Start: 08-26-2024 End: 09-02-2024 Dr. Brenda Posadas MD -Intensive Care Unit Work Phone: Start: 08-26-2024 ambulatory Nicole Trujillo Facility:[facility] Start: 08-26-2024 ambulatory [facility] Fa cility:[facility] Start: 08-26-2024 Dr. Riccardo Ng MD -[facility] Start: 08-01-2024 End: 08-01-2024 Dr. Riccardo Hillman DO -Emergency Departme nt Work Phone: Start: 08-01-2024 End: 08-01-2024 Emergency department patient visit [facility] Facility:[facility] Start: 07-17-2024 ambulatory [facility] Fa cility:[facility] Start: 07-11-2024 End: 07-11-2024 Dr. Nicole Trujillo DO -Medical Out Work Phone: Start: 07-11-2024 End: 07-11-2024 ambulatory [facility] Facility:[facility] Start: 07-10-2024 End: 07-10-2024 Dr. Nicole Trujillo DO -Medical Out Work Phone: Start: 07-10-2024 End: 07-10-2024 ambulatory [facility] Facility:[facility] Start: 07-09-2024 ambulatory Nicole Trujillo Facility:[facility] Start: 07-08-2024 ambulatory [facility] Fa cility:[facility] Start: 07-07-2024 End: 07-07-2024 Dr. Nicole Trujillo DO -Medical Out Work Phone: Start: 07-07-2024 End: 07-07-2024 ambulatory [facility] Facility:[facility] Start: 07-06-2024 End: 07-06-2024 Dr. Nicole Trujillo DO -Medical Out Work Phone: Start: 07-06-2024 End: 07-06-2024 ambulatory Nicole Trujillo Facility:[facility] Start: 07-05-2024 End: 07-05-2024 Dr. Nicole Trujillo DO -Medical Out Work Phone: Start: 07-05-2024 End: 07-05-2024 ambulatory Nicole Trujillo Facility:[facility] Start: 07-04-2024 End: 07-04-2024 Dr. Nicole Trujillo DO -Medical Out Work Phone: Start: 07-04-2024 End: 07-04-2024 ambulatory [facility] Facility:[facility] Start: 07-03-2024 Dr. Nicole Trujillo DO -[facility] Work Phone: Start: 07-02-2024 Dr. Nicole Trujillo DO -[facility] Work Phone: Start: 07-01-2024 Dr. Nicole Trujillo DO -[facility] Work Phone: Start: 06-30-2024 Dr. Nicole Trujillo DO -[facility] Work Phone: Start: 06-29-2024 End: 07-03-2024 Evaluation and management of inpatient Brenda Posadas Facility:[facility] Start: 06-29-2024 End: 07-03-2024 Dr. Nicole Trujillo DO -Medical Surgical 3 Work Phone: Start: 06-29-2024 ambulatory Brenda Posadas Facility:[facility] Start: 05-23-2024 End: 05-24-2024 Emergency department patient visit DR RAYMUNDO VIEIRA DO [facility] Start: 04-29-2024 Dr. Talisha chen MD -[place] [facility] Work Phone: Start: 04-28-2024 Dr. Talisha chen MD -[place] [facility] Work Phone: Start: 04-25-2024 ambulatory [facility] Facility:[facility] Start: 04-25-2024 End: 04-29-2024 Evaluation and management of inpatient [facility] Facility:[facility] Start: 04-25-2024 End: 04-29-2024 Dr. Talisha Boykin MD -Medical Surgical 3 Work Phone: Start: 02-06-2024 End: 02-06-2024 Telephone encounter Gerda Rivero MD Work Phone: Endocrine Surgery Comment on above: Appointment ( Jimena trejo attempts to contact patient to schedule appointment with regarding incidental growth found in adrenal gland, not able to contact. Scheduled appointment with for 02/20 at 1:30 PM and mailed out appointment reminder.) Start: 11-20-2023 Telephone encounter Stephanie Whiting [facility] Comment on above: Orders ([facility] defer ral) Start: 10-22-2023 Telephone encounter Stephanie Whiting [facility] Comment on above: Orders ([facility] order contact/SNF ltr) Start: 10-18-2023 End: 10-19-2023 ambulatory [facility] Start: 10-18-2023 Telephone encounter Diya Patten MD Work Phone: [facility] Comment on above: returned nursing hair e call; Patient Update Start: 10-15-2023 End: 10-15-2023 Emergency department patient visit [facility]-Emergency Department Work Phone: Start: 10-12-2023 Registered Referred [facility] Start: 10-09-2023 Telephone encounter Diya Patten MD Work Phone: [facility] Start: 10-08-2023 Registered Referred [facility] Start: 10-04-2023 Telephone encounter Diya Patten MD Work Phone: [facility] Comment on above: Patient Update Start: 10-02-2023 Telephone encounter Diya Patten MD Work Phone: [facility] Comment on above: Contact Center Call; Patient Update; PHYSICIAN INSTRUCTIONS Start: 10-01-2023 Telephone encounter Diya Patten MD Work Phone: [facility] Comment on above: Patient Update Start: 10-01-2023 Registered Referred [facility] Start: 09-29-2023 Registered Referred [facility] Start: 09-27-2023 Telephone encounter Diya Patten MD Work Phone: [facility] Comment on above: Patient Question; Ab scess Start: 09-24-2023 Registered Referred [facility] Start: 09-17-2023 Registered Referred [facility] Work Phone: [facility] Start: 09-12-2023 Telephone encounter Diya Patten MD Work Phone: [facility] Comment on above: Appointment; Radiolo gy XR Start: 09-10-2023 End: 09-10-2023 ambulatory [facility] Work Phone: [facility] Work Phone: Start: 09-10-2023 End: 09-10-2023 Departed Referred [facility] Work Phone: [facility] Start: 09-02-2023 End: 09-07-2023 Evaluation and management of inpatient [facility] Facility:[facility] Start: 09-02-2023 End: 09-02-2023 Emergency department patient visit [facility] Work Phone: [facility]-Emergency Department Work Phone: Start: 06-19-2023 End: 06-19-2023 Emergency department patient visit [facility] Work Phone: [facility]-Emergency Department Work Phone: Start: 06-18-2023 Registered Rec[facility]ring [facility] Work Phone: [facility]-Patient Link Work Phone: Start: 06-16-2023 Non-patient / Non-visit [facility] Work Phone: [facility] Work Phone: Start: 06-15-2023 Non-patient / Non-visit [facility] Work Phone: [facility] Work Phone: Start: 06-14-2023 Non-patient / Non-visit [facility] Work Phone: [facility] Work Phone: Start: 06-13-2023 Non-patient / Non-visit [facility] Work Phone: [facility] Work Phone: Start: 06-13-2023 End: 06-16-2023 Evaluation and management of inpatient [facility] Work Phone: [facility]-Progressive Care Unit Work Phone: Start: 05-26-2023 End: 05-26-2023 Emergency department patient visit [facility] Work Phone: [facility]-Emergency Department Work Phone: Start: 05-22-2023 End: 05-22-2023 Emergency department patient visit [facility] Work Phone: [facility]-Emergency Department Work Phone: Start: 05-07-2023 Non-patient / Non-visit [facility] Work Phone: [facility] Work Phone: Start: 05-06-2023 Non-patient / Non-visit [facility] Work Phone: [facility] Start: 05-06-2023 Non-patient / Non-visit [facility] Work Phone: [facility] Work Phone: Start: 05-05-2023 Non-patient / Non-visit [facility] Work Phone: [facility] Start: 05-05-2023 Non-patient / Non-visit [facility] Work Phone: [facility] Work Phone: Start: 05-04-2023 Non-patient / Non-visit [facility] Work Phone: [facility] Work Phone: Start: 05-04-2023 Non-patient / Non-visit [facility] Work Phone: [facility] Start: 05-03-2023 End: 05-07-2023 Evaluation and management of inpatient [facility] Work Phone: [facility]-Progressive Care Unit Work Phone: Start: 04-18-2023 End: 04-18-2023 ambulatory [facility] Work Phone: [facility] Work Phone: Start: 04-18-2023 End: 04-18-2023 Patient encounter procedure [facility] Work Phone: [facility] Work Phone: Start: 04-05-2023 End: 04-05-2023 ambulatory [facility] Work Phone: [facility] Work Phone: Start: 04-05-2023 End: 04-05-2023 Patient encounter procedure [facility] Work Phone: [facility]-Sleep Lab Work Phone: Start: 03-22-2023 End: 03-22-2023 Patient encounter procedure [facility] Work Phone: [facility] Work Phone: Start: 02-28-2023 End: 02-28-2023 Patient encounter procedure [facility] Work Phone: [facility] Work Phone: Start: 02-06-2023 Non-patient / Non-visit [facility] Work Phone: [facility] Work Phone: Start: 02-02-2023 Non-patient / Non-visit [facility] Work Phone: [facility] Work Phone: Start: 02-02-2023 End: 02-03-2023 Evaluation and management of inpatient [facility] Work Phone: [facility]-Progressive Care Unit Work Phone: Start: 02-02-2023 End: 02-03-2023 [facility] Work Phone: [facility] Work Phone: Start: 01-03-2023 Non-patient / Non-visit [facility] Work Phone: [facility] Work Phone: Start: 01-02-2023 Non-patient / Non-visit [facility] Work Phone: [facility] Work Phone: Start: 01-01-2023 Non-patient / Non-visit [facility] Work Phone: Start: 01-01-2023 End: 01-03-2023 Evaluation and management of inpatient [facility] Work Phone: [facility]-Progressive Care Unit Work Phone: Start: 10-01-2022 End: 10-01-2022 Emergency department patient visit Dr. Nathaly Lainez Work Phone: [facility] Work Phone: Start: 10-01-2022 End: 10-01-2022 Dr. Nathaly Lainez Work Phone: [facility]-Emergency Department Start: 09-18-2022 End: 09-18-2022 Emergency department patient visit Dr. Nathaly Lainez Work Phone: [facility] Work Phone: Start: 09-18-2022 End: 09-18-2022 Dr. Nathaly Lainez Work Phone: [facility]-Emergency Department Start: 09-11-2022 End: 09-11-2022 Emergency department patient visit Dr. Nathaly Lainez Work Phone: [facility] Work Phone: Start: 09-11-2022 End: 09-11-2022 Dr. Nathaly Lainez Work Phone: [facility]-Emergency Department Start: 09-09-2022 End: 09-10-2022 Emergency department patient visit Dr. Nathaly Lainez Work Phone: [facility]-Emergency Department Start: 09-09-2022 End: 09-10-2022 Dr. Nathaly Lainez Work Phone: [facility]-Emergency Department Start: 09-08-2022 Non-patient / Non-visit Dr. Rashida Lainez Work Phone: [facility] Start: 09-08-2022 End: 09-08-[address] Nathaly Lainez Work Phone: [facility] Work Phone: Start: 09-08-2022 End: 09-08-[address] Nathaly Lainez Work Phone: [facility]-Cardiovascular Services Start: 09-08-2022 End: 09-08-2022 Dr. Nathaly Lainez Work Phone: [facility] Start: 09-05-2022 Non-patient / Non-visit Dr. Rashida Lainez Work Phone: [facility] Start: 09-05-2022 End: 09-05-2022 Emergency department patient visit Dr. Nathaly Lainez Work Phone: [facility]-Emergency Department Start: 09-05-2022 End: 09-05-2022 Dr. Nathaly Lainez Work Phone: [facility]-Emergency Department Start: 09-04-2022 ambulatory JEISON FORDE DPM Faci lity:R Start: 09-02-2022 Non-patient / Non-visit Dr. Rashida Lainez Work Phone: [facility] Inpatient Physicians Start: 09-02-2022 Dr. Nathaly reyes Work Phone: [facility] Start: 09-01-2022 Non-patient / Non-visit Dr. Rashida Lainez Work Phone: [facility] Inpatient [facility] Start: 09-01-2022 Dr. Nathaly reyes Work Phone: [facility] Inpatient Physicians Start: 08-31-2022 Non-patient / Non-visit Dr. Rashida Lainez Work Phone: [facility] Inpatient Physicians Start: 08-31-2022 Dr. Nathaly reyes Work Phone: [facility] Inpatient Physicians Start: 08-31-2022 Non-patient / Non-visit Dr. Rashida Lainez Work Phone: [facility] Start: 08-31-2022 Dr. Nathaly reyes Work Phone: [facility] Start: 08-30-2022 Non-patient / Non-visit Dr. Rashida Lainez Work Phone: [facility] Inpatient [facility] Start: 08-30-2022 Dr. Nathaly reyes Work Phone: [phone] [place] [address] Inpatient Physicians Start: 08-30-2022 End: 09-02-2022 Evaluation and management of inpatient Dr[facility] Start: 08-30-2022 End: 09-02-2022 Dr. Nathaly Lainez Work Phone: [phone] [address] [place], [place] [address]Medical Surgical 3 Start: 08-23-2022 End: 08-23-[address] Nathaly Lainez Work Phone: [phone] [place] [address] Vascular Surgery Start: 08-23-2022 End: 08-23-2022 Dr. Nathaly Lainez Work Phone: [phone] [place] [address] Vascular Surgery Start: 08-17-2022 Non-patient / Non-visit Dr. Rashida Lainez Work Phone: [phone] [place] [address]-BVS Start: 08-17-2022 End: 08-17-[address] Nathaly Lainez Work Phone: [phone] [place] [address]-Cardiovascular Services Start: 08-17-2022 End: 08-17-2022 Dr. Nathaly Lainez Work Phone: [phone] [place] [address]-BVS Start: 08-14-2022 End: 08-14-2022 Emergency department patient visit Dr. Nathaly Lainez Work Phone: [phone] [place] [address]-Emergency Department Start: 08-14-2022 End: 08-14-2022 Dr. Nathaly Lainez Work Phone: [phone] [address]-Emergency Department Start: 08-10-2022 Non-patient / Non-visit Dr. Rashida Lainez Work Phone: [phone] [place] [address]-BVS Start: 08-10-2022 Dr. Nathaly reyes Work Phone: [phone] [place] [address] Start: 08-10-2022 End: 08-10-2022 Admission to same day surgery center Dr. Nathaly Lainez Work Phone: [facility]-Non Licensed Nuclear Equipment Operator/Special Procedures Start: 08-10-2022 End: 08-10-[address] Nathaly Lainez Work Phone: [facility] Work Phone: Start: 08-10-2022 End: 08-10-2022 Dr. Nathaly Lainez Work Phone: [facility]-Non Licensed Nuclear Equipment Operator/Special Procedures Start: 08-09-2022 End: 08-09-[address] Nathaly Lainez Work Phone: [phone] [place] [address] Vascular Surgery Start: 08-09-2022 End: 08-09-2022 Dr. Nathaly Lainez Work Phone: [phone] [place] [address] Vascular Surgery Start: 08-06-2022 End: 08-06-2022 Emergency department patient visit Dr. Nathaly Lainez Work Phone: [facility]-Emergency Department Start: 08-06-2022 End: 08-06-2022 Dr. Nathaly Lainez Work Phone: [phone] [place] [address]-Emergency Department Start: 08-03-2022 End: 08-03-2022 Emergency department patient visit Dr. Nathaly Lainez Work Phone: [phone] [place] [address]-Emergency Department Start: 08-03-2022 End: 08-03-2022 Dr. Nathaly Lainez Work Phone: [facility]-Emergency Department Start: 07-25-2022 End: 07-25-2022 Emergency department patient visit Dr. Nathaly Lainez Work Phone: [facility]-Emergency Department Start: 07-25-2022 End: 07-25-2022 Dr. Nathaly Lainez Work Phone: [phone] [place] [address]-Emergency Department Start: 06-29-2022 End: 06-29-[address] Nathaly Lainez Work Phone: [facility]-Outpatient Bone Densitometry Start: 06-29-2022 End: 06-29-2022 Dr. Nathaly Lainez Work Phone: [facility]-Outpatient Bone Densitometry Start: 06-21-[address] Nathaly Lainez Work Phone: [facility]-Physical Therapy Start: 06-21-2022 Dr. Nathaly reyes Work Phone: [facility]-Physical Therapy Start: 06-08-2022 End: 06-08-2022 Postop follow up visit related to original px Jerry Jones PA-C Work Phone: [facility] [place] Comment on above: Closed 3-part fractu re of proximal humerus, right, with routine healing, subsequent encounter (Primary Dx) Start: 05-19-2022 End: 05-19-2022 Emergency department patient visit Dr. Nathaly Lainez Work Phone: [facility]-Emergency Department Start: 05-19-2022 End: 05-19-2022 Dr. Nathaly Lainez Work Phone: [facility]-Emergency Department Start: 05-09-2022 End: 05-10-2022 Emergency department patient visit Dr. Nathaly Lainez Work Phone: [facility]-Emergency Department Start: 05-02-2022 End: 05-03-2022 ambulatory [facility] Start: 04-24-2022 End: 04-24-[address] Nathaly Lainez Work Phone: [facility]opaedic [facility] Start: 04-18-2022 End: 04-18-2022 Emergency department patient visit [facility]-Emergency Department Start: 04-17-2022 End: 04-17-2022 Emergency department patient visit [facility]-Emergency Department Start: 03-27-2022 End: 03-27-2022 Emergency department patient visit [facility]-Emergency Department Start: 08-13-2021 End: 08-13-2021 Emergency department patient visit Alex [facility] Emergency 16 Start: 08-25-2019 End: 08-25-2019 Patient encounter procedure [facility] Start: 07-20-2018 End: 07-21-2018 Patient encounter procedure [facility] Start: 06-08-2018 End: 06-12-2018 Evaluation and management of inpatient [facility] Start: 12-14-2017 End: 12-14-2017 Emergency department patient visit UNKNOWN PROVIDER [facility] Start: 11-30-2017 End: 12-05-2017 Patient encounter procedure [facility] Procedures Date Procedure Procedure Detail Performing Clinician Start: 02-10-2025 Blood count smear mcrscp w/mnl difrntl wbc count Zohreh Mckeon NON LICENSED NUCLEAR PLANT OPERATOR-C Work Phone: Start: 02-10-2025 Estimated creatinine clearance Zohreh Mckeon NON LICENSED NUCLEAR PLANT OPERATOR-C Work Phone: Start: 02-10-2025 Mean corpuscular hemoglobin concentration determination Zohreh Mckeon NON LICENSED NUCLEAR PLANT OPERATOR-C Work Phone: Start: 02-10-2025 Nucleated red blood cell count procedure Zohreh Mckeon NON LICENSED NUCLEAR PLANT OPERATOR-C Work Phone: Start: 02-10-2025 Platelet mean volume determination Zohreh Mckeon NON LICENSED NUCLEAR PLANT OPERATOR-C Work Phone: Start: 02-09-2025 Vitamin D, 25-hydroxy measurement Zohreh Mckeon NON LICENSED NUCLEAR PLANT OPERATOR-C Work Phone: Start: 01-31-2025 Benzodiazepine measurement, urine Zohreh Mckeon NON LICENSED NUCLEAR PLANT OPERATOR-C Work Phone: Start: 01-31-2025 Cocaine measurement, urine Zohreh pierce NON LICENSED NUCLEAR PLANT OPERATOR-C Work Phone: Start: 01-31-2025 Methadone measurement, urine Zohreh Mckeon NON LICENSED NUCLEAR PLANT OPERATOR-C Work Phone: Start: 01-31-2025 Urine cannabinoid measurement Zohreh Mckeon NON LICENSED NUCLEAR PLANT OPERATOR-C Work Phone: Start: 01-31-2025 Urine microscopy: red cells Zohreh Mckeon NON LICENSED NUCLEAR PLANT OPERATOR-C Work Phone: Start: 01-31-2025 Urine opiate measurement Zohreh flores NON LICENSED NUCLEAR PLANT OPERATOR-C Work Phone: Start: 01-31-2025 Urnls dip stick/tablet reagent auto microscopy Zohreh Mckeon NON LICENSED NUCLEAR PLANT OPERATOR-C Work Phone: Start: 01-31-2025 Serum inorganic phosphate measurement Zohreh Mckeon NON LICENSED NUCLEAR PLANT OPERATOR-C Work Phone: Start: 01-30-2025 Assay of triglycerides Zohreh Mckeon NON LICENSED NUCLEAR PLANT OPERATOR-C Work Phone: Start: 01-30-2025 Total cholesterol:HDL ratio measurement Zohreh Mckeon NON LICENSED NUCLEAR PLANT OPERATOR-C Work Phone: Start: 01-29-2025 Plain x-ray of pelvis and lower extremity Zohreh Mckeon NP-C Work Phone: Start: 01-29-2025 Estimated creatinine clearance Zohreh Mckeon NP-C Work Phone: Start: 12-12-2024 X-ray of ankle, three or more views Zohreh Mckeon NON LICENSED NUCLEAR PLANT OPERATOR-C Work Phone: Start: 12-12-2024 X-ray of foot, three or more views Zohreh Mckeon NON LICENSED NUCLEAR PLANT OPERATOR-C Work Phone: Start: 09-29-2024 Blood count smear mcrscp w/mnl difrntl wbc count Zohreh Mckeon NP-C Work Phone: Start: 09-29-2024 Estimated creatinine clearance oZhreh Mckeon NP-C Work Phone: Start: 09-29-2024 Mean corpuscular hemoglobin concentration determination Zohreh Mckeon NP-C Work Phone: Start: 09-29-2024 Nucleated red blood cell count procedure Zohreh Mckeon NON LICENSED NUCLEAR PLANT OPERATOR-C Work Phone: Start: 09-29-2024 Platelet mean volume determination Zohreh Mckeon NP-C Work Phone: Start: 09-29-2024 Triacylglycerol lipase measurement Zohreh Mckeon NON LICENSED NUCLEAR PLANT OPERATOR-C Work Phone: Start: 09-29-2024 Urine microscopy: red cells Zohreh Mckeon NP-C Work Phone: Start: 09-29-2024 Urnls dip stick/tablet reagent auto microscopy Zohreh Mckeon NON LICENSED NUCLEAR PLANT OPERATOR-C Work Phone: Start: 09-21-2024 Urine microscopy: red cells Zohreh Mckeon NON LICENSED NUCLEAR PLANT OPERATOR-C Work Phone: Start: 09-21-2024 Urnls dip stick/tablet reagent auto microscopy Zohreh Mckeon NON LICENSED NUCLEAR PLANT OPERATOR-C Work Phone: Start: 09-21-2024 Estimated creatinine clearance Zohreh Mckeon NON LICENSED NUCLEAR PLANT OPERATOR-C Work Phone: Start: 09-21-2024 Triacylglycerol lipase measurement Zohreh Mckeon NON LICENSED NUCLEAR PLANT OPERATOR-C Work Phone: Start: 09-21-2024 Blood count smear mcrscp w/mnl difrntl wbc count Zohreh Mckeon NON LICENSED NUCLEAR PLANT OPERATOR-C Work Phone: Start: 09-21-2024 Mean corpuscular hemoglobin concentration determination Zohreh Mckeon NON LICENSED NUCLEAR PLANT OPERATOR-C Work Phone: Start: 09-21-2024 Nucleated red blood cell count procedure Zohreh Mckeon NON LICENSED NUCLEAR PLANT OPERATOR-C Work Phone: Start: 09-21-2024 Platelet mean volume determination Zohreh Mckeon NON LICENSED NUCLEAR PLANT OPERATOR-C Work Phone: Start: 09-16-2024 Blood count smear mcrscp w/mnl difrntl wbc count Zohreh Mckeon NON LICENSED NUCLEAR PLANT OPERATOR-C Work Phone: Start: 09-16-2024 Mean corpuscular hemoglobin concentration determination Zohreh Mckeon NON LICENSED NUCLEAR PLANT OPERATOR-C Work Phone: Start: 09-16-2024 Nucleated red blood cell count procedure Zohreh Mckeon NON LICENSED NUCLEAR PLANT OPERATOR-C Work Phone: Start: 09-16-2024 Platelet mean volume determination Zohreh Mckeon NON LICENSED NUCLEAR PLANT OPERATOR-C Work Phone: Start: 09-16-2024 Estimated creatinine clearance Zohreh Mckeon NON LICENSED NUCLEAR PLANT OPERATOR-C Work Phone: Start: 09-12-2024 Urine microscopy: red cells Zohreh Mckeon NON LICENSED NUCLEAR PLANT OPERATOR-C Work Phone: Start: 09-12-2024 Urnls dip stick/tablet reagent auto microscopy Zohreh Mkceon NON LICENSED NUCLEAR PLANT OPERATOR-C Work Phone: Start: 09-12-2024 Urine culture [facility] Work Phone: Start: 09-11-2024 Plain X-ray abdomen [facility] Work Phone: Start: 09-09-2024 Urine culture [facility] Work Phone: Start: 09-09-2024 Serum inorganic phosphate measurement Zohreh Mckeon NON LICENSED NUCLEAR PLANT OPERATOR-C Work Phone: Start: 09-08-2024 Blood culture [facility] Work Phone: Start: 09-08-2024 Clostridium difficile detection [facility] Work Phone: Start: 09-08-2024 Nucleic acid assay [facility] Work Phone: Start: 09-08-2024 Iadna-dna/rna gi pthgn multiplex probe tq 6-11 Zohreh Mckeon NON LICENSED NUCLEAR PLANT OPERATOR-C Work Phone: Start: 09-08-2024 Parathyroid hormone measurement Zohreh Mckeon NON LICENSED NUCLEAR PLANT OPERATOR-C Work Phone: Start: 09-08-2024 Vitamin D, 25-hydroxy measurement Zohreh Mckeon NON LICENSED NUCLEAR PLANT OPERATOR-C Work Phone: Start: 09-08-2024 Calcium measurement Zohreh Mckeon NON LICENSED NUCLEAR PLANT OPERATOR-C Work Phone: Start: 09-07-2024 Computed tomography of abdomen and pelvis with intravenous contrast [facility] Work Phone: Start: 09-07-2024 Triacylglycerol lipase measurement Zohreh Mckeon NON LICENSED NUCLEAR PLANT OPERATOR-C Work Phone: Start: 09-05-2024 Blood count smear mcrscp w/mnl difrntl wbc count Zohreh Mckeon NON LICENSED NUCLEAR PLANT OPERATOR-C Work Phone: Start: 09-05-2024 Estimated creatinine clearance Zohreh Mckeon NON LICENSED NUCLEAR PLANT OPERATOR-C Work Phone: Start: 09-05-2024 Mean corpuscular hemoglobin concentration determination Zohreh Mckeon NON LICENSED NUCLEAR PLANT OPERATOR-C Work Phone: Start: 09-05-2024 Nucleated red blood cell count procedure Zohreh Mckeon NON LICENSED NUCLEAR PLANT OPERATOR-C Work Phone: Start: 09-05-2024 Platelet mean volume determination Zohreh Mckeon NP-C Work Phone: Start: 09-05-2024 Triacylglycerol lipase measurement Zohreh WOODC Work Phone: Start: 09-02-2024 Blood count smear mcrscp w/mnl difrntl wbc count Zohreh Mckeon NON LICENSED NUCLEAR PLANT OPERATOR-C Work Phone: Start: 09-02-2024 Estimated creatinine clearance Zohreh Mckeon NON LICENSED NUCLEAR PLANT OPERATOR-C Work Phone: Start: 09-02-2024 Mean corpuscular hemoglobin concentration determination Zohreh WOOD Work Phone: Start: 09-02-2024 Nucleated red blood cell count procedure Zohreh Mckeon NON LICENSED NUCLEAR PLANT OPERATORRamilaC Work Phone: Start: 09-02-2024 Platelet mean volume determination Zohreh Mckeon NON LICENSED NUCLEAR PLANT OPERATOR-C Work Phone: Start: 09-02-2024 Serum inorganic phosphate measurement Zohreh Mckeon NON LICENSED NUCLEAR PLANT OPERATOR- Work Phone: Start: 08-29-2024 Iadna-dna/rna gi pthgn multiplex probe tq 6-11 Zohreh Mckeon NON LICENSED NUCLEAR PLANT OPERATOR- Work Phone: Start: 08-29-2024 Clostridium difficile detection [facility] Work Phone: Start: 08-29-2024 Nucleic acid assay [facility] Work Phone: Start: 08-27-2024 MRI of lumbar spine [facility] Work Phone: Start: 08-27-2024 Calculation of international normalized ratio Zohreh Mckeon [facility] Work Phone: Start: 08-26-2024 CT angiography of lower limb [facility] Work Phone: Start: 08-26-2024 Assay of lactate Zohreh Mckeon [facility] Work Phone: Start: 08-26-2024 Plain chest X-ray [...] Specimen Type: BLOOD SPEC IMEN Ordering Facility: [facility] Address: [address] [place] [address] Performed By: #### [id number] #### [facility] [id number] [address] [place] [address] [place] Start: 09-02-2023 Plain chest [...] 11-11-2019 Follow-up visit Start: 12-14-2017 Electrocardiogram [facility] OLMOSULA Start: 11-30-2017 End: 11-30-2017 Electrocardiogram [facility] Start: 02-01-2016 Colonoscopy Diya May MD Work [...] DTaP,Tdap,Td Vaccine (2 - Td or Tdap) [facility] Start: 02-11-2025 Patient discharge [facility] Start: 02-06-2025 [facility] Start: 01-31-2025 [facility] Start: 01-31-2025 Care planning and pr oblem solving actions [facility] Start: 01-30-2025 [facility] Start: 01-30-2025 Dual pressure sponta neous ventilation support [facility] Start: 01-29-2025 Application of intermittent pneumatic compression device [facility] Start: 01-29-2025 Following clinical pathway protocol [facility] Start: 01-29-2025 Assessment of risk o f venous thromboembolism [facility] Start: 01-29-2025 Care regimes management [facility] Start: 01-29-2025 Insertion of cathete r into peripheral vein [facility] Start: 01-29-2025 Measuring intake and output [facility] Start: 01-29-2025 Notification of physician [facility] Start: 01-29-2025 Providing care accor ding to standard [facility] Start: 01-29-2025 Provision of activit y privileges [facility] Start: 01-29-2025 Referral to occupati onal therapist [facility] Start: 01-29-2025 Referral to service [facility] Start: 01-29-2025 Tobacco use cessatio n education [facility] Start: 01-29-2025 End: 01-29-2025 [facility] Start: 01-29-2025 Urinalysis complete panel - Urine [facility] Start: 01-29-2025 Verification routine [facility] Start: 01-29-2025 Admission procedure [facility] Start: 01-29-2025 Hospital admission, emergency, from emergency room, medical nature [facility] Start: 01-29-2025 HIP, UNI W/ Pelvis 2 -3 Views HIP, UNI W/ Pelvis 2-3 Views [facility] Start: 01-29-2025 XR Pelvis and Hip Views [facility] Start: 01-29-2025 Thyroid stimulating hormone measurement [facility] Start: 01-29-2025 Patient referral to dietitian [facility] Start: 12-12-2024 [facility] Start: 09-29-2024 End: 09-29-2024 [facility] Start: 09-21-2024 [facility] Start: 09-16-2024 Patient discharge [facility] Start: 09-16-2024 [facility] Start: 09-14-2024 Consultation [facility] Start: 09-14-2024 Care planning and pr oblem solving actions [facility] Start: 09-11-2024 Consultation [facility] Start: 09-09-2024 Admission procedure [facility] Start: 09-08-2024 [facility] Start: 09-07-2024 Following clinical pathway protocol [facility] Start: 09-07-2024 Assessment of risk o f venous thromboembolism [facility] Start: 09-07-2024 Care regimes management [facility] Start: 09-07-2024 Fall prevention [facility] Start: 09-07-2024 Inhalation therapy procedure [facility] Start: 09-07-2024 Insertion of cathete r into peripheral vein [facility] Start: 09-07-2024 Measuring intake and output [facility] Start: 09-07-2024 Notification of physician [facility] Start: 09-07-2024 Providing care accor ding to standard [facility] Start: 09-07-2024 Provision of activit y privileges [facility] Start: 09-07-2024 Referral to occupati onal therapist [facility] Start: 09-07-2024 Referral to service [facility] Start: 09-07-2024 Tobacco use cessatio n education [facility] Start: 09-07-2024 End: 09-07-2024 [facility] Start: 09-07-2024 Verification routine [facility] Start: 09-07-2024 Admission procedure [facility] Start: 09-07-2024 Hospital admission, emergency, from emergency room, medical nature [facility] Start: 09-07-2024 Serum inorganic phos phate measurement [facility] Start: 09-07-2024 Patient referral to dietitian [facility] Start: 09-05-2024 [facility] Start: 09-02-2024 Referral to service [facility] Start: 09-02-2024 Patient discharge [facility] Start: 09-01-2024 [facility] Start: 08-27-2024 [facility] Start: 08-26-2024 Following clinical pathway protocol [facility] Start: 08-26-2024 Assessment of risk o f venous thromboembolism [facility] Start: 08-26-2024 Care regimes management [facility] Start: 08-26-2024 Incentive spirometry [facility] Start: 08-26-2024 Insertion of cathete r into peripheral vein [facility] Start: 08-26-2024 Measuring intake and output [facility] Start: 08-26-2024 Notification of physician [facility] Start: 08-26-2024 Providing care accor ding to [facility] Start: 08-26-2024 Referral to occupati onal therapist [facility] Start: 08-26-2024 Referral to service [facility] Start: 08-26-2024 Referral to vascular surgeon [facility] Start: 08-26-2024 Vital signs measurements [facility] Start: 08-26-2024 End: 08-26-2024 [facility] Start: 08-26-2024 Verification routine [facility] Start: 08-26-2024 Admission procedure [facility] Start: 08-26-2024 Hospital admission, emergency, from emergency room, medical nature [facility] Start: 08-26-2024 Patient referral to dietitian [facility] Start: 08-01-2024 [facility] Start: 07-03-2024 Patient discharge [facility] Start: 07-01-2024 Consultation [facility] Start: 06-30-2024 [facility] Start: 06-30-2024 [facility] Start: 06-30-2024 Referral to occupati onal therapist [facility] Start: 06-30-2024 Referral to service [facility] Start: 06-29-2024 Assessment of risk o f venous thromboembolism [facility] Start: 06-29-2024 Care regimes management [facility] Start: 06-29-2024 Insertion of cathete r into peripheral vein [facility] Start: 06-29-2024 Measuring intake and output [facility] Start: 06-29-2024 Notification of physician [facility] Start: 06-29-2024 Providing care accor ding to [facility] Start: 06-29-2024 Provision of activit y privileges [facility] Start: 06-29-2024 End: 06-29-2024 [facility] Start: 06-29-2024 End: 06-29-2024 Following clinical pathway protocol [facility] Start: 06-29-2024 Admission procedure [facility] Start: 04-29-2024 Patient discharge [facility] Start: 04-29-2024 Care planning and pr oblem solving actions [facility] Start: 04-29-2024 [facility] Start: 04-28-2024 Wound care [facility] Start: 04-26-2024 End: 04-27-2024 [facility] Start: 04-25-2024 Care planning and pr oblem solving actions [facility] Start: 04-25-2024 Assessment of risk o f venous thromboembolism [facility] Start: 04-25-2024 Care regimes management [facility] Start: 04-25-2024 Consultation for treatment [facility] Start: 04-25-2024 Inhalation therapy procedure [facility] Start: 04-25-2024 Insertion of cathete r into peripheral vein [facility] Start: 04-25-2024 Notification of physician [facility] Start: 04-25-2024 Patient referral to dietitian [facility] Start: 04-25-2024 Providing care accor ding to standard [facility] Start: 04-25-2024 Provision of activit y privileges [facility] Start: 04-25-2024 Referral to occupati onal therapist [facility] Start: 04-25-2024 Referral to service [facility] Start: 04-25-2024 End: 04-25-2024 [facility] Start: 04-25-2024 Care of central veno us catheter [facility] Start: 04-25-2024 Following clinical pathway protocol [facility] Start: 04-25-2024 Admission procedure [facility] Start: 04-25-2024 Patient referral to dietitian [facility] Start: 02-21-2024 End: 02-21-2024 Patient encounter procedure 02/21/2024 1:30 PM EDT Office Visit Endocrine Surgery [address] [place] [address] Gerda Rivero MD [address] [id number] [facility] Comment on above: [facility] Start: 02-03-2024 Covid-19 Vaccine ( season) Covid-19 Vaccine () [facility] Start: 02-03-2024 Influenza vaccination Influenza Vacc ine (#1) [facility] Start: 12-04-2023 Hemoglobin A1c measurement HbA1C [facility] Start: 10-23-2023 End: 10-23-2023 Patient encounter procedure 10/23/2023 1:15 PM EDT Office Visit [facility] [address] [place] [address] Gadiel Washington PA-C [address] [facility] [address] [place] [address] PO [facility] Comment on above: PO Start: 09-02-2023 End: 09-02-2023 [facility] Start: 06-19-2023 [facility] Start: 06-16-2023 Patient discharge [facility] Start: 06-15-2023 Referral to frame bender [facility] Start: 06-15-2023 Care regimes management [facility] Start: 06-13-2023 Blood chemistry [facility] Start: 06-13-2023 Following clinical pathway protocol [facility] Start: 06-13-2023 Assessment of risk o f venous thromboembolism [facility] Start: 06-13-2023 Fluid restriction [facility] Start: 06-13-2023 Insertion of cathete r into peripheral vein [facility] Start: 06-13-2023 Measuring intake and output [facility] Start: 06-13-2023 Oxygen therapy [facility] Start: 06-13-2023 Providing care accor ding to standard [facility] Start: 06-13-2023 Provision of activit y privileges [facility] Start: 06-13-2023 Referral to occupati onal therapist [facility] Start: 06-13-2023 Referral to service [facility] Start: 06-13-2023 End: 06-13-2023 [facility] Start: 06-13-2023 Verification routine [facility] Start: 06-13-2023 Admission procedure [facility] Start: 06-13-2023 Patient referral to dietitian [facility] Start: 06-12-2023 [facility] Start: 05-26-2023 [facility] Start: 05-11-2023 Blood chemistry [facility] Start: 05-10-2023 Blood chemistry [facility] Start: 05-09-2023 Blood chemistry [facility] Start: 05-08-2023 Blood chemistry [facility] Start: 05-07-2023 Patient discharge [facility] Start: 05-04-2023 Patient referral [facility] Work Phone: Start: 05-03-2023 [facility] Start: 05-03-2023 Referral to [employer] [facility] Start: 05-03-2023 Ambulation without limitation [facility] Start: 05-03-2023 Assessment of risk o f venous thromboembolism [facility] Start: 05-03-2023 Care regimes management [facility] Start: 05-03-2023 Inhalation therapy procedure [facility] Start: 05-03-2023 Insertion of cathete r into peripheral vein [facility] Start: 05-03-2023 Measuring intake and output [facility] Start: 05-03-2023 Notification of physician [facility] Start: 05-03-2023 Oxygen therapy [facility] Start: 05-03-2023 Providing care accor ding to standard [facility] Start: 05-03-2023 Referral to occupati onal therapist [facility] Start: 05-03-2023 Referral to service [facility] Start: 05-03-2023 [facility] Start: 05-03-2023 Following clinical pathway protocol [facility] Start: 05-03-2023 Verification routine [facility] Start: 05-03-2023 Admission procedure [facility] Start: 05-03-2023 Hospital admission, emergency, from emergency room, medical nature [facility] Start: 05-03-2023 [facility] Start: 05-03-2023 [facility] Start: 05-03-2023 Consultation [facility] Start: 05-03-2023 Patient referral to [facility] Start: 02-03-2023 Patient discharge [facility] Start: 02-02-2023 Following clinical pathway protocol [facility] Start: 02-02-2023 Ambulation without limitation [facility] Start: 02-02-2023 Assessment of risk o f venous thromboembolism [facility] Start: 02-02-2023 Care regimes management [facility] Start: 02-02-2023 Insertion of cathete r into peripheral vein [facility] Start: 02-02-2023 Measuring intake and output [facility] Start: 02-02-2023 Notification of physician [facility] Start: 02-02-2023 Providing care accor ding to [facility] Start: 02-02-2023 [facility] Start: 02-02-2023 Oxygen therapy [facility] Start: 02-02-2023 Verification routine [facility] Start: 02-02-2023 Admission procedure [facility] Start: 02-02-2023 [facility] Start: 02-02-2023 Covid-19 Vaccine ( season) Covid-19 Vaccine () [facility] Start: 02-02-2023 Brain natriuretic pe ptide measurement [facility] Start: 02-02-2023 Patient referral to [facility] Start: 01-03-2023 Patient discharge [facility] Start: 01-01-2023 Ambulation without limitation [facility] Start: 01-01-2023 Assessment of risk o f venous thromboembolism [facility] Start: 01-01-2023 Care regimes management [facility] Start: 01-01-2023 Catheterization of vein [facility] Start: 01-01-2023 Insertion of cathete r into peripheral vein [facility] Start: 01-01-2023 Measuring intake and output [facility] Start: 01-01-2023 Notification of physician [facility] Start: 01-01-2023 Providing care accor ding to standard [facility] Start: 01-01-2023 [facility] Start: 01-01-2023 Admission procedure [facility] Start: 01-01-2023 Following clinical pathway protocol [facility] Start: 01-01-2023 [facility] Start: 09-02-2022 Patient discharge [facility] Start: 09-01-2022 Referral to service [facility] Start: 09-01-2022 Wound care [facility] Start: 09-01-2022 [facility] Start: 08-31-2022 Amputation of toe Amputation T oe/Foot (Right) [facility] Start: 08-31-2022 Patient referral to dietitian [facility] Start: 08-31-2022 Blood chemistry [facility] Start: 08-30-2022 Care regimes management [facility] Start: 08-30-2022 Notification of physician [facility] Start: 08-30-2022 [facility] Start: 08-30-2022 Assessment of risk o f venous thromboembolism [facility] Start: 08-30-2022 Consultation [facility] Start: 08-30-2022 Consultation for treatment [facility] Start: 08-30-2022 Insertion of cathete r into peripheral vein [facility] Start: 08-30-[address] [facility] Start: 08-30-2022 Providing care accor ding to [facility] Start: 08-30-2022 Referral to service [facility] Start: 08-30-2022 Tobacco use cessatio n education [facility] Start: 08-30-2022 [facility] Start: 08-30-2022 Following clinical pathway protocol [facility] Start: 08-30-2022 Admission procedure [facility] Start: 08-30-2022 Verification routine [facility] Start: 08-30-2022 [facility] Start: 08-30-2022 End: 08-30-2022 Blood culture [facility] Start: 08-09-2022 Patient referral [facility] Work Phone: Start: 07-20-2022 End: 07-20-2022 Patient encounter procedure 07/20/2022 Office Visit Orthopedic Surgery Jerry Jones PA-C [address] [id number] [facility] [place] Start: 07-20-2022 End: 07-20-2022 Documentation procedure 07/20/2022 Documentation Orthopedic Surgery [facility] Start: 05-19-2022 [facility] Start: 02-02-2022 Influenza vaccination Influenza Vacc ine (#1) [facility] Start: 08-23-2021 Shingrix Vaccine (1 of 2) Mcmillan grix Vaccine (1 of 2) [facility] Start: 08-23-2021 Zoster Vaccines (1 of 2) Zoste r Vaccines (1 of 2) [facility] Start: 02-23-2021 COVID-19 Vaccine (3 - Booster for Moderna series) COVID-19 Vaccine (3 - Booster for Moderna series) [facility] Start: 2020 Hepatitis B surface antibody level LDL Cholesterol [facility] Start: 03-14-2020 Annual PCP Team [employer] yamil Disease Visit Annual PCP Team Chronic Disease Visit [facility] Start: 06-19-2019 Screening for malign ant neoplasm of cervix [facility] Start: 06-18-2019 Screening for malign ant neoplasm of cervix Pap Testing [facility] Start: 01-31-2019 Screening for malign ant neoplasm of colon [facility] Start: 08-23-2016 Screening for malign ant neoplasm of colon [facility] Start: 10-14-2013 Screening for malign ant neoplasm of breast Mammogram Screening [facility] Start: 2011 Screening for malign ant neoplasm of breast Mammogram [facility] Start: 08-23-2001 Screening for malign ant neoplasm of cervix [facility] Start: 08-23-1992 Screening for malign ant neoplasm of cervix Pap Smear [facility] Start: 08-23-1990 DTaP/Tdap/Td Vaccine s (1 - Tdap) DTaP/Tdap/Td Vaccines (1 - Tdap) [facility] Start: 08-23-1990 Hepatitis B Vaccine (1 of 3 - 19+ 3-dose series) Hepatitis B Vaccine (1 of 3 - 19+ 3-dose series) [facility] Start: 08-23-1990 Urine screening for protein Diabetes: Urine Protein Screening [facility] Start: 08-23-1989 BP Controlled (<130/80) BP Controlle d (<130/80) [facility] Start: 08-23-1989 Hepatitis C screening Hepatitis C Sc reening [facility] Start: 08-23-1989 HIV screening [facility] Start: 08-23-1981 Diabetic foot examination [facility] Start: 08-23-1981 Glaucoma screening [facility] Start: 08-23-1981 Hepatitis B screening Urine Albumin:Creatinine Ratio [facility] Start: 08-23-1981 Preventive dental service Diabetes: Dental Exam [facility] Start: 08-23-1977 Pneumococcal vaccination Pneum ococcal Vaccine (1 of 2 - PCV) [facility] Start: 08-23-1977 Pneumococcal Vaccine : Pediatrics (0 to 5 Years) and At-Risk Patients (6 to 64 Years) (1 - PCV) Pneumococcal Vaccine: Pediatrics (0 to 5 Years) and At-Risk Patients (6 to 64 Years) (1 - PCV) [facility] Start: 08-23-1972 MMR Vaccines (1 of 1 - Standard series) MMR Vaccines (1 of 1 - Standard series) [facility] Start: 1971 Hemoglobin A1c measurement Diabetes: Hemoglobin A1C [facility] Start: 1971 Hepatitis B Vaccines (1 of 3 - 3-dose series) Hepatitis B Vaccines (1 of 3 - 3-dose series) [facility] Start: 1971 HIV screening HIV Screening [facility] Start: 1971 Lipid panel Lipid Panel [facility] Start: 1971 Screening for malign ant neoplasm of colon [facility] Anion gap measurement [facility] Anion gap measurement [facility] Ankle brachial press ure index [facility] Ankle brachial press ure index [facility] Bacteria identified in Blood by Culture Blood Culture [facility] Bacteria identified in Blood by Culture Blood Culture [facility] Bacteria identified in Urine by Culture Urine Culture [facility] Bilirubin measuremen t, urine [facility] BUN/Creatinine ratio [facility] BUN/Creatinine ratio [facility] Calcium [Mass/volume ] in 24 hour Urine [facility] Calcium [Mass/volume ] in Serum or Plasma [facility] Calcium [Mass/volume ] in Serum or Plasma [facility] Carbon dioxide, tota l [Moles/volume] in Serum or Plasma [facility] Carbon dioxide, tota l [Moles/volume] in Serum or Plasma [facility] Chloride [Moles/volu me] in Serum or Plasma [facility] Chloride [Moles/volu me] in Serum or Plasma [facility] Creatinine [Moles/vo lume] in Serum or Plasma [facility] Creatinine [Moles/vo lume] in Serum or Plasma [facility] Folate [Moles/volume ] in Serum or Plasma [facility] Glucose [Mass/volume ] in Serum or Plasma [facility] Glucose [Mass/volume ] in Serum or Plasma [facility] Hematocrit [Volume Fraction] of Blood [facility] Hematocrit [Volume Fraction] of Blood [facility] Hemoglobin [Mass/vol ume] in Blood [facility] Hemoglobin [Mass/vol ume] in Blood [facility] Hemoglobin [Presence ] in Urine [facility] Hemoglobin A1c/Hemoglobin.total in Blood [facility] Lactic acid measurement [facility] Leukocytes [#/volume ] in Blood [facility] Leukocytes [#/volume ] in Blood [facility] Magnesium [Mass/volu me] in Serum or Plasma [facility] Magnesium measurement [facility] Mean corpuscular hemoglobin concentration determination [facility] Mean corpuscular hemoglobin concentration determination [facility] Mean corpuscular hemoglobin determination [facility] Mean corpuscular hemoglobin determination [facility] Measurement of keton es in urine using dipstick [facility] Measurement of renal function [facility] Measurement of renal function [facility] Microscopic urinalysis [facility] Neutrophil count [facility] Neutrophil count [facility] Neutrophil percent differential count [facility] Neutrophil percent differential count [facility] Patient Education [facility] Work Phone: Patient referral [facility] Work Phone: pH of Urine [facility] Platelets [#/volume] in Blood [facility] Platelets [#/volume] in Blood [facility] Potassium [Moles/vol ume] in Serum or Plasma [facility] Potassium [Moles/vol ume] in Serum or Plasma [facility] Radionuclide gastric emptying study [facility] Red blood cell count [facility] Red blood cell count [facility] Red cell distributio n width determination [facility] Red cell distributio n width determination [facility] Sodium [Moles/volume ] in Serum or Plasma [facility] Sodium [Moles/volume ] in Serum or Plasma [facility] Specific gravity of Urine [facility] Urea nitrogen [Mass/volume] in Serum or Plasma [facility] Urea nitrogen [Mass/volume] in Serum or Plasma [facility] Urine blood test [facility] Urine dipstick for glucose [facility] Urine dipstick for leukocyte esterase [facility] Urine dipstick for nitrite [facility] Urine dipstick for protein [facility] Urine examination [facility] Urine microscopy: epithelial cells [facility] Urine Microscopy: wh ite cells [facility] Urobilinogen [Presen ce] in Urine [facility] US Lower extremity artery [facility] Immunizations Immunization Date Immunization Notes [facility] Provider [facility]23 influenza, injectabl e, quadrivalent, preservative free [facility] Work Phone: [facility] 06-14-2023 influenza virus vaccine, unspecified formulation Gerda Rivero MD Work Phone: [facility] 09-01-2022 influenza, injectabl e, quadrivalent, preservative free [facility] Work Phone: [facility] 09-01-2022 influenza, seasonal, injectable Dr. Nathaly Lainez Work Phone: [facility] 08-05-2021 influenza, injectabl e, quadrivalent, preservative free [facility] Work Phone: [facility] 08-05-2021 influenza, seasonal, injectable [facility] 08-05-2021 influenza virus vaccine, unspecified formulation Jerry Jones PA-C Work Phone: [facility] 12-29-2020 Covid (Moderna) Dr. Nathaly Lowery Work Phone: [facility] 11-30-2020 Covid (Erasmo) Dr. Nathaly Lowery Work Phone: [facility] 07-20-2018 influenza, injectabl e, quadrivalent, preservative free [facility] Work Phone: [facility] 07-20-2018 influenza, seasonal, injectable Dr. Nathaly Lainez Work Phone: [facility] Payers Date Payer Category Payer Self-pay [id number] 2022 Medicaid [id number] 2012 Medicaid [id number] 2012 Unknown [id number] 1970 Unknown [id number] .0.1.121095.3.579.2.903 1971 Unknown [id number] .0.1.887662.3.579.2.627 1971 Unknown [id number] .840.1.803860.3.579.2.627 Unknown [employer]ESOURCE\CARESOURCE Unknown [id number] .840.1.249785.3.579.2.462 Unknown [id number] .840.1.575208.3.579.2.462 Unknown [id number] 2.840.1.187473.3.579.2.462 Unknown [id number] 2.16840.1.692766.3.579.2.462 Unknown [id number] 2.840.1.768611.3.579.2.462 Unknown [id number] 2.16840.1.309909.3.579.2.462 Unknown [id number] 2.840.1.434945.3.579.2.462 Unknown [id number] 2.840.1.441396.3.579.2.462 Unknown [id number] 2.840.1.037709.3.579.2.462 Unknown [id number] 2.840.1.578398.3.579.2.462 Unknown [id number] 2.840.1.064468.3.579.2.462 Unknown [id number] 2.840.1.612397.3.579.2.462 Unknown [id number] 2.840.1.149021.3.579.2.462 Unknown [id number] 2.840.1.339356.3.579.2.462 Unknown [id number] 2.840.1.304662.3.579.2.462 Unknown [id number] .840.1.302222.3.579.2.462 Unknown [id number] 2.840.1.686408.3.579.2.462 Unknown [id number] .840.1.542497.3.579.2.462 Unknown [id number] .840.1.644321.3.579.2.462 Unknown [id number] .840.1.032686.3.579.2.462 Unknown [id number] .840.1.429880.3.579.2.462 Unknown [id number] 2.840.1.042794.3.579.2.462 Unknown [id number] 2.840.1.147586.3.579.2.462 Unknown [id number] 2.840.1.996951.3.579.2.462 Unknown [id number] 2.16.840.1.335257.3.579.2.462 Unknown [id number] 2.16.840.1.244129.3.579.2.462 Unknown [id number] 2.16.840.1.244199.3.579.2.462 Unknown [id number] 2.16.840.1.782259.3.579.2.462 Unknown [id number] 2.16.840.1.113177.3.579.2.462 Unknown [id number] 2.16.840.1.931178.3.579.2.462 Unknown [id number] 2.16.840.1.725844.3.579.2.462 Unknown [id number] 2.16.840.1.683195.3.579.2.462 Unknown [id number] 2.16.840.1.077710.3.579.2.462 Unknown [id number] 2.16.840.1.166340.3.579.2.462 Unknown [id number] 2.16.840.1.064133.3.579.2.462 Unknown [id number] 2.16.840.1.118782.3.579.2.462 Unknown [id number] 2.16.840.1.035034.3.579.2.462 Unknown [id number] 2.16.840.1.529387.3.579.2.462 Unknown [id number] 2.16.840.1.263868.3.579.2.462 Unknown [id number] 2.16.840.1.411228.3.579.2.462 Unknown 10929905 2.16.840.1.352890.3.579.2.462 Unknown [id number] 2.16.840.1.671404.3.579.2.462 Unknown [id number] 2.16.840.1.276519.3.579.2.462 Unknown [id number] 2.16.840.1.942638.3.579.2.462 Unknown [id number] 2.16.840.1.240957.3.579.2.462 Unknown [id number] 2.16.840.1.150950.3.579.2.462 Unknown [id number] 2.16.840.1.008730.3.579.2.462 Unknown [id number] 2.16.840.1.677513.3.579.2.462 Unknown [id number] 2.16.840.1.195529.3.579.2.462 Unknown [id number] 2.16840.1.288147.3.579.2.462 Unknown [id number] 2.16840.1.756520.3.579.2.462 Unknown [id number] 2.16840.1.870202.3.579.2.462 Unknown [id number] 2.16840.1.221998.3.579.2.462 Unknown [id number] 2.840.1.694704.3.579.2.462 Unknown [id number] 2.16840.1.406578.3.579.2.462 Unknown [id number] 2.16840.1.217181.3.579.2.462 Unknown [id number] 2.16840.1.372003.3.579.2.462 Unknown [id number] 2.16840.1.457351.3.579.2.462 Unknown [id number] 2.16840.1.401007.3.579.2.462 Unknown [id number] 2.16.840.1.517059.3.579.2.462 Unknown [id number] 2.16.840.1.602300.3.579.2.462 Unknown [id number] 2.16840.1.617346.3.579.2.462 Unknown [id number] 2.16.840.1.700653.3.579.2.462 Unknown [id number] 2.16.840.1.540620.3.579.2.462 Unknown [id number] 2.16.840.1.923163.3.579.2.462 Unknown [id number] 2.16.840.1.455537.3.579.2.462 Unknown [id number] 2.16.840.1.884091.3.579.2.462 Unknown [id number] 2.16.840.1.602348.3.579.2.462 Unknown [id number] 2.16.840.1.516310.3.579.2.462 Unknown [id number] 2.16.840.1.918577.3.579.2.462 Unknown [id number] 2.16.840.1.574487.3.579.2.462 Unknown [id number] 2.16.840.1.412905.3.579.2.462 Unknown 10125401 2.16.840.1.357716.3.579.2.462 Unknown [id number] 2.16.840.1.702937.3.579.2.462 Unknown [id number] 2.16.840.1.406702.3.579.2.462 Unknown [id number] 2.16.840.1.800657.3.579.2.462 Unknown 91600395 2.16.840.1.301583.3.579.2.462 Unknown [id number] 2.16.840.1.546427.3.579.2.462 Unknown [id number] 2.16.840.1.393465.3.579.2.462 Unknown [id number] 2.16.840.1.387037.3.579.2.462 Unknown [id number] 2.16.840.1.444611.3.579.2.462 Unknown [id number] 2.16.840.1.409645.3.579.2.462 Unknown [id number] 2.16.840.1.760563.3.579.2.462 Unknown [id number] 2.16.840.1.228758.3.579.2.462 Unknown [id number] 2.16.840.1.981593.3.579.2.462 Unknown [id number] 2.16.840.1.861121.3.579.2.462 Unknown 20285074 2.16.840.1.726748.3.579.2.462 Unknown [id number] 2.16.840.1.418617.3.579.2.462 Unknown [id number] 2.840.1.886529.3.579.2.462 Unknown [id number] 2.16.840.1.907572.3.579.2.462 Unknown [id number] 2..840.1.253660.3.579.2.462 Unknown [id number] 2.16.840.1.226826.3.579.2.462 Unknown [id number] 2.16.840.1.232067.3.579.2.462 Unknown [id number] 2.16.840.1.129726.3.579.2.462 Unknown [id number] 2.16.840.1.801458.3.579.2.462 Unknown [id number] 2.16.840.1.754009.3.579.2.462 Unknown [id number] 2.16.840.1.771660.3.579.2.462 Unknown [id number] 2.16.840.1.630183.3.579.2.462 Unknown [id number] 2.16.840.1.735342.3.579.2.462 Unknown [id number] 2..840.1.524618.3.579.2.462 Unknown [id number] 2.840.1.922533.3.579.2.462 Unknown [id number] 2..840.1.112732.3.579.2.462 Social History Date Type Detail Facility [facility] Start: 03-27-2022 End: 10-15-2023 Tobacco smoking consumption unknown [facility] Start: 08-13-2020 None [facility] Start: 08-13-2020 Spouse/ Signif icant Other [facility] Start: 08-11-2020 Cigarettes [facility] Start: 1970 Sex Assigned At Female W [facility] Start: 12-06-2018 End: 01-30-2025 Tobacco smoking status NHIS Smokes tobacco daily [facility] History of tobacco use Cigarette Smoker C [facility] Start: 12-06-2018 End: 09-03-2023 Cigarettes smoked current (pack per day) - Reported 0.5 [facility] Start: 12-06-2018 Tobacco use and exposure Smokeless tobacco non-user [facility] Start: 09-03-2023 End: 10-19-2023 Alcohol intake Current non-drinker of alcohol (finding) [facility] Start: 08-31-2020 End: 09-03-2023 [facility] [employer] [facility] Has the [employer], or [employer] threatened to shut off services in your home in past 12Mo No [facility] Attends Holiness Services Not on file [facility] Are you now , , , , never or living with a partner? [facility] How often to you hav e a drink containing alcohol? Never [facility] Do you feel stress - tense, restless, nervous, or anxious, or unable to sleep at night because your mind is troubled all the time - these days [OSQ] Very much [facility] (I/We) worried wheth er (my/our) food would run out before (I/we) got money to buy more. Never true [facility] Start: 10-18-2018 Education 12 [facility] Start: 1970 Sex Assigned At Not on file S [facility] Start: 05-29-2022 End: 06-08-2022 Exposure to SARS-CoV-2 (event) Not sure [facility] Start: 05-23-2024 Tobacco smoking status Never s moked tobacco (finding) [facility] Sexual Orientation [facility] Start: 09-04-2022 End: 09-29-2024 Sex Female (finding) [facility] Start: 08-26-2024 End: 08-28-2024 Tobacco smoking status NHIS Current Heavy tobacco smoker [facility] NEGATED: Highlighted row [facility] Medical Equipment Procedure Code Equipment Code Equipment Origin al Text Equipment Identifier Dates ([id number]) [id number] FDA Start: 08-10-2022 [id number] FDA Start: 08-10-2022 ([id number]) [id number] FDA Start: 08-10-2022 Nail Tfn-Advance d 125d Short Green Titanium 170mm Intramedullary Cannulated - [id number] Start: 09-03-2023 Screw Tfn-Advanc ed 85mm Bone Sterile - [id number] Start: 09-03-2023 Screw 5mm 4.3mm T25 Full Thread Titanium 34mm Bone Lock Self Tap Blunt Tip - [id number] Start: 09-03-2023 Comment on above: Description: Was on worksheet and verified on intra-op x-ray. [id number], [id number], [id number], [id number] Start: 10-08-2018 Comment on above: Check sugars [...] noted. Functional Status Date Assessment Result Facility 02-11-2025 Functional status Ambulates;Bedrest [facility] Work Phone: 09-16-2024 Functional status Ambulates;Bathroom Priv [facility] Work Phone: 09-02-2024 Functional status Ambulates [facility] Work Phone: 07-03-2024 Functional status Ambulates [facility] Work Phone: 05-24-2024 Functional Status Activity Status ADL [facility] 05-23-2024 Functional Status Standard Safet y ID band on, Allergy Band on, Call device within reach, Bed in low position, Wheels locked, personal items within reach, Safety level maintained [facility] 04-29-2024 Functional status Ambulates [facility] Work Phone: 06-16-2023 Functional status Ambulates;Bedside Commo [facility] Work Phone: 05-07-2023 Functional status Bedside Commode [facility] Work Phone: 02-03-2023 Functional status Activity Ability Indepe ndent [facility] Work Phone: 01-03-2023 Functional status Patient Activi ty Ambulates;Up ad maria m [facility] Work Phone: 01-03-2023 Functional status Standby Assist [facility] Work Phone: 01-02-2023 Functional status Tolerates Activity Well [facility] Work Phone: 09-02-2022 Functional status Ambulates;Bedside Commo [facility] Work Phone: Mental Status Date Assessment Result Facility 02-11-2025 Cognitive function Voice/Name [facility] Work Phone: 09-29-2024 Cognitive function Awake;Alert;A ppropriate;Follow s Commands [facility] Work Phone: 09-16-2024 Cognitive function Voice/Name [facility] Work Phone: 09-02-2024 Cognitive function Voice/Name [facility] Work Phone: 07-11-2024 Cognitive function Voice/Name [facility] Work Phone: 07-10-2024 Cognitive function Awake;Alert;A ppropriate;Follow s Commands [facility] Work Phone: 07-07-2024 Cognitive function Awake;Alert;A ppropriate;Follow s Commands [facility] Work Phone: 07-05-2024 Cognitive function Voice/Name [facility] Work Phone: 07-04-2024 Cognitive function Voice/Name [facility] Work Phone: 07-03-2024 Cognitive function Voice/Name [facility] Work Phone: 05-23-2024 Mental Status Orientation Oriented x 4 [facility] 04-29-2024 Cognitive function Voice/Name [facility] Work Phone: 06-16-2023 Cognitive function Voice/Name [facility] Work Phone: 06-12-2023 Cognitive function Level Of Cons ciousness Awake;Alert;Appropriate [facility] Work Phone: 05-07-2023 Cognitive function Voice/Name [facility] Work Phone: 02-03-2023 Cognitive function Voice/Name [facility] Work Phone: 02-02-2023 Cognitive function Level Of Cons ciousness Awake;Alert;Appropriate [facility] Work Phone: 01-03-2023 Cognitive function Appropriate;Cooperativ e [facility] Work Phone: 01-01-2023 Cognitive function Level Of Cons ciousness Awake;Alert;Appropriate;Follow s Commands [facility] Work Phone: 09-02-2022 Cognitive function Voice/Name [facility] Work Phone: 04-17-2022 Cognitive function Level Of Cons ciousness Awake;Alert;Appropriate [facility] Work Phone: 03-27-2022 Cognitive function Level Of Cons ciousness Awake;Alert;Appropriate [facility] Work Phone: Clinical Notes 06-08-2022 to 02-11-2025 Note Date & Type Note Facility 02-11-2025 Discharge summary Note Date/Time February 11, 2025 2:39pm [facility] Medical Records Department [address] [place] [id number] Transfer to [facility] MR#: [id number] Acct: [id number] Name: TRENTON JACKSON Rep #:[id number] : 1970 54 From: Riccardo Shaikh DO PCP: RUTH Lawrence, NON LICENSED NUCLEAR PLANT OPERATOR-C Statu s:ADM IN Certification of patient admission REQUIRED AT TIME OF ADMISSION. I CERTIFY THAT POST-HOSPITAL [facility] SERVICES ARE REQUIRED TO BE GIVEN ON AN IN-PATIENT BASIS BECAUSE OF THE ABOVE NAMED PATIENT'S NEED FOR SENIOR LIVING CARE ON A CONTINUING BASIS FOR THE CONDITION(S) FOR WHICH HE/SHE WAS RECEIVING IN-PATIENT HOSPITAL SERVICES PRIOR TO HIS/HER TRANSFER TO THE [facility]. 02/11/25 1439<Electronically signed by Riccardo Shaikh DO> Diet Diet Order/Speech Therapy: INPATIENT Hospital Diet / Speech Therapy Order(s) 01/29/25 21:53 Diet: Consistent Carb - Calorie Controlled Food consistency:: Regular Liquid Consistency:: Regular/Thin Dietary Modifications:: Cardiac / Heart Healthy How many daily calories?: 1800 calorie Routine Orders/Code Status Code Status: Full Code DC O2, CPAP, BIPAP needs Home O2 Discharge instructions: No Therapies Weight Bearing: Full weight bearing Physical Therapy: Eval and Treat Occupational Therapy: Eval and Treat Problem/Diagnosis (1) Severe pain: Status: Acute Code(s): R52 - Pain, unspecified (2) Fracture of pubic ramus: Status: Acute Code(s): S32.599A - Other specified fracture of unspecified pubis, initial encounter for closed fracture Plan Debililty and weakness * due to acute nondisplaced right inferior and superior pubic process fracture * PT OT evaluation and treat. * Anticipated placement, still waiting on insurance authorization. Case has been escalated given the protracted approval process. Pelvic fracture * Atraumatic. X-ray shows acute nondisplaced fracture of the right inferior and superior pubic processes. * Has history of left hip fracture. * 25-hydroxy 13. Continue ergocalciferol. Chronic medical conditions: * Type 2 diabetes mellitus with diabetic neuropathy and gastroparesis: A1C was 13.2 on admission. on lantus 20 units bid. ISS. Accuchecks ACHS. Fair control. * History of nonobstructive CAD: on aspirin, high intensity statin and plavix. On Coreg. * Fungal rash: Has inframammary fungal rash. On nystatin powder * HFrEF: not in exacerbation. Has known EF of 30% on 09/01/2024, improved from previous EF of 15%. on lasix, entresto, spironolactone and midodrine.spironolactone held due to hyperkalemia. * Hypertension: on carvedilol. Spironolactone on hold due to hyperkalemia. Also on entresto * History of PAD s/p stents: on aspirin, plavix and statin. * Nicotine dependence: counseled to quit. Nicotine patch prn * GERD: on PPI * Depression: on escitalopram. * History of compression fracture of L3 and L5: PT/OT On board. Fall precautions. DVT prophylaxis: lovenox Disposition: still awaiting placement, pending precert. I have discussed with Martina case has been escalated to case capacity management specialist. Allergies/Procedures Done in Hospital Allergies latex Allergy (Verified 01/29/25 15:41) Hives Type of Care/Length of Stay Estimated LOS: Convalescent Care Less Than 30 days Type of Care Needed: Skilled Rehab Potential: Fair Prognosis: Good Additional Orders/Day of Discharge Day of Discharge: 02/11/25 Dietary and Speech Recommendations Dietitian Recommendations/Changes: Will continue 1800 trevon Consistent CHO/ Cardiac diet as ordered Will discontinue glucerna shake tid w/ medpass as not indicated at this time. Please consult again if pt willing to have diet education while at [facility] Discharge Plan Admission Admit Date/Time: 01/31/25 13:49 Primary Reason for Your Visit: pelvic fractures Attending Provider: Riccardo Shaikh Primary Care Provider: Zohreh Mckeon [facility] Consulting Providers: Latricia Yao; Nicole Trujillo; Lei Justin; Talisha Boykin Discharge Orders/Prescriptions Prescriptions: New nystatin 100,000 unit/gram Powder 1 applic topical TID Qty: 0 0RF Protocol: *Topical Application Instructions APPLICATION INSTRUCTIONS: UNDER alok BREAST insulin lispro [Humalog KwikPen Insulin] 100 unit/mL Insulin Pen See Protocol subcut ACHS Qty: 0 0RF Protocol: 5. Sliding Scale Insulin High Dosing Condition: 150-209 mg/dl = 3 units Condition: 210-259 mg/dl = 6 units Condition: 260-324 mg/dl = 9 units Condition: 325-374 mg/dl = 12 units Condition: 375-409 mg/dl = 14 units Condition: 410-449 mg/dl = 16 units Condition: Greater than 449 call physician Protocol Text: Suggested for: - Patients on Total Daily Insulin Dose of 81-120 units - Very insulin resistant patients HIGH DOSING ALGORITHM insulin glargine-yfgn 100 unit/mL (3 mL) Insulin Pen 20 unit subcut BID Qty: 0 0RF Continued pantoprazole 40 mg tablet,delayed release (DR/EC) 40 mg PO DAILY aspirin 81 mg Capsule 81 mg PO DAILY clopidogrel 75 mg Tablet 75 mg PO DAILY Qty: 30 0RF Patient Comments: patient stated pretty sure I still take that sacubitril-valsartan [Entresto] 24-26 mg Tablet 1 tab PO BID 30 Days Qty: 60 0RF atorvastatin 80 mg tablet 80 mg [...] 1,000 mg PO Q8 Qty: 0 0RF sennosides-docusate sodium [Stimulant Laxative Plus] 8.6-50 mg Tablet 2 tab PO BID Qty: 60 0RF lidocaine 5 % Adhesive Patch,Medicated 1 patch topical DAILY Qty: 30 0RF Protocol: *Topical Application Instructions APPLICATION INSTRUCTIONS: to lower back ondansetron 4 mg tablet,disintegrating 4 mg PO Q6H PRN (Reason: nausea and vomiting) Qty: 30 0RF metoclopramide HCl [Reglan] 10 mg tablet 10 mg PO Q6H PRN (Reason: nausea and vomiting) 5 Days Qty: 20 0RF cholecalciferol (vitamin D3) 1,250 mcg (50,000 [...] systolic blood pressure less than 100 mmHg. ondansetron 4 mg tablet,disintegrating 4 mg PO Q8H PRN PRN (Reason: Nausea) Qty: 10 0RF oxycodone 5 mg Tablet 5 mg PO Q4H PRN PRN (Reason: pain 4-10) 3 Days Qty: 12 0RF Discontinued insulin lispro 100 unit/mL insulin pen, half-unit 1 sliding scale dose subcut TIDCM Patient Comments: patient does not know sliding scale ertapenem 1 gram recon soln 1 g IV Q24H 7 Days Qty: 7 0RF Rx Instructions: Dx: emphysematous cystitis. Weekly bmp, LFT, and cbc while on iv abx. Fax to [phone]. acetaminophen 325 mg Tablet 650 mg PO Q4H PRN PRN (Reason: Fever, pain 1-03/13) Qty: 0 0RF metoclopramide HCl [Reglan] 5 mg tablet 5 mg PO TID PRN PRN (Reason: nausea and vomiting) Qty: 14 0RF insulin glargine [Lantus Solostar U-100 Insulin] 100 unit/mL (3 mL) insulin pen 20 unit subcut QPM 30 Days Qty: 0 0RF Rx Instructions: Hold if glucose less than 130 mg/dl (DME) OXYGEN - Supplemental ([facility] INFORMATIONAL USE ONLY) Gas See Rx Instructions .ROUTE Patient Comments: wears 2lpm @HS provided by [employer] Rx Instructions: As directed Referrals / Follow Up: Zohreh Mckeon, NON LICENSED NUCLEAR PLANT OPERATOR-C [Primary Care Provider] - Within 2 Weeks Disposition Disposition (needs filled in before D/C Order can be placed): Nursing Home Facility (2) Fracture of pubic ramus Qualifiers: Encounter type: initial encounter Fracture type: closed Laterality: right Qualified Code(s): S32.591A - Other specified fracture of right pubis, initial encounter for closed fracture 02/11/25 2809 <Electronically signed by Riccardo Shaikh DO> Cosigner Signature (if applicable): CC: RUTH NON LICENSED NUCLEAR PLANT OPERATOR-C Zohreh Mckeon; Dr. Lei Justin DO; Dr. Latricia Yao DO; Dr. Nicole Trujillo DO; Dr. Talisha Boykin MD ~ [facility] Work Phone: 1(171) 497-966809-10-2025 Progress note Author Riccardo Shaikh [facility] Note Date/Time February 11, 2025 2:26pm [facility] Medical Records Department [address] [place] [address] Progress Note - Hospitalist 02/11/25 1214 MR#: [id number] Acct: [id number] Name: TRENTON JACKSON Rep #:[id number] : 1970 54 From: Riccardo Shaikh DO PCP: RUTH Lawrence, NON LICENSED NUCLEAR PLANT OPERATOR-C Statu s:ADM IN Location: MS3 [id number] Reason for Visit Chief Complaint: Severe Right Hip Pain and Inability to Ambulate. Subjective Subjective No new events/complaints. Still waiting on insurance authorization. Objective Data Objective Data Vital Signs: Vital Signs Temp Pulse Resp BP Pulse Ox O2 Del Method O2 Flow Rate 36.1 C L 84 16 135/70 H 97 Room Air 2 02/11/25 06:45 02/11/25 06:45 02/11/25 06:45 02/11/25 06:45 02/11/25 06:45 02/11/25 08:30 02/05/25 02:09 Oxygen Flow Rate (L/min) 2 Oxygen Delivery Method Room Air Weight: 83.9 kg Body Mass Index (BMI) 29.7 Intake & Output: Intake and Output for Last 24 Hours 02/09/25 02/10/25 02/11/25 23:59 23:59 23:59 Output Total 800 / 800 1400 / 1400 450 / 450 Balance -800 / -800 -1400 / -1400 -450 / -450 Lab / Micro Data 02/10/25 04:17 02/10/25 04:17 Labs: Laboratory Results - last 24 hr 02/10/25 12:21: POC Glucose 201 H 02/10/25 15:56: POC Glucose 154 H 02/10/25 22:34: POC Glucose 229 H 02/11/25 06:36: POC Glucose 149 H 02/11/25 10:43: POC Glucose 153 H Physical Exam Const alert and no apparent distress HEENT head/scalp atraumatic and moist oral mucous membranes Resp normal respiratory effort and no retractions Assessment & Plan Assessment/Plan (1) Severe pain: (2) Fracture of pubic ramus: QUALIFIERS: Encounter type: initial encounter Fracture type: closed Laterality: right Qualified Code(s): S32.591A - Other specified fractureof right pubis, initial encounter for closed fracture PLAN: Plan Debililty and weakness * due to acute nondisplaced right inferior and superior pubic process fracture * PT OT evaluation and treat. * Anticipated placement, still waiting on insurance authorization. Case has been escalated given the protracted approval process. Pelvic fracture * Atraumatic. X-ray shows acute nondisplaced fracture of the right inferior and superior pubic processes. * Has history of left hip fracture. * 25-hydroxy 13. Continue ergocalciferol. Chronic medical conditions: * Type 2 diabetes mellitus with diabetic neuropathy and gastroparesis: A1C was 13.2 on admission. on lantus 20 units bid. ISS. Accuchecks ACHS. Fair control. * History of nonobstructive CAD: on aspirin, high intensity statin and plavix. On Coreg. * Fungal rash: Has inframammary fungal rash. On nystatin powder * HFrEF: not in exacerbation. Has known EF of 30% on 09/01/2024, improved from previous EF of 15%. on lasix, entresto, spironolactone and midodrine.spironolactone held due to hyperkalemia. * Hypertension: on carvedilol. Spironolactone on hold due to hyperkalemia. Also on entresto * History of PAD s/p stents: on aspirin, plavix and statin. * Nicotine dependence: counseled to quit. Nicotine patch prn * GERD: on PPI * Depression: on escitalopram. * History of compression fracture of L3 and L5: PT/OT On board. Fall precautions. DVT prophylaxis: lovenox Disposition: still awaiting placement, pending precert. I have discussed with Martina case has been escalated to case capacity management specialist. Charges/Coding Visit Charges Inpatient E&M: 52607 Subs Hosp L1 02/11/25 1216 <Electronically signed by Riccardo Shaikh DO> Cosigner Signature (if applicable): CC: ~ Signed ADDENDUM by Dr. Riccardo Shaikh DO on 02/11/25 at 1426 Addendum DW CM/SW. Apparently, there was a clerical error preventing the precert from proceeding. It has since been expedited. 02/11/25 1426<Electronically signed by Riccardo Shaikh DO> Cosigner Signature (if applicable): cc: ~* Signed [facility] Work Phone: 1(378) 771-478109-09-2025 Progress note Author Riccardo Shaikh [facility] Note Date/Time February 10, 2025 10:02am [facility] Medical Records Department [address] [place] [id number] Progress Note - Hospitalist 02/10/2559 MR#: [id number] Acct: [id number] Name: TRENTON JACKSON Rep #:[id number] : 1970 54 From: Riccardo Shaikh DO PCP: RUTH Lawrence, NON LICENSED NUCLE[employer] PLANT OPERATOR-C Statu s:ADM IN Location: MS3 [id number] Reason for Visit Chief Complaint: Severe Right Hip Pain and Inability to Ambulate. Subjective Subjective Was having back pain, to which was provided oxycodone by nursing. Complaining ofheadache. Objective Data Objective Data Vital Signs: Vital Signs Temp Pulse Resp BP Pulse Ox O2 Del Method O2 Flow Rate 36.3 C L 80 14 121/72 H 96 Room Air 2 02/10/25 07:56 02/10/25 07:56 02/10/25 07:56 02/10/25 07:56 02/10/25 07:56 02/10/25 07:56 02/05/25 02:09 Oxygen Flow Rate (L/min) 2 Oxygen Delivery Method Room Air Weight: 84.6 kg Body Mass Index (BMI) 29.9 Intake & Output: Intake and Output for Last 24 Hours 02/08/25 02/09/25 02/10/25 23:59 23:59 23:59 Output Total 800 / 800 550 / 550 Balance -800 / -800 -550 / -550 Lab / Micro Data 02/10/25 04:17 02/10/25 04:17 Labs: Laboratory Results - last 24 hr 02/09/25 06:02: Vitamin D 25-Hydroxy 13.2 L 02/09/25 11:01: POC Glucose 218 H 02/09/25 16:50: POC Glucose 103 02/09/25 22:44: POC Glucose 168 H 02/10/25 04:17: WBC 6.7, RBC 3.64 L, Hgb 10.0 L, Hct 30.9 L, MCV 84.9, MCH 27.5,MCHC 32.4, RDW Std Deviation 46.4 H, RDW Coeff of Spencer 14.9 H, Plt Count 220, MPV9.4, Immature Gran % (Auto) 0.500, Neut % (Auto) 64.4, Lymph % (Auto) 26.3, [place]% (Auto) 7.2, Eos % (Auto) 1.1, Baso % (Auto) 0.5, Absolute Neuts (auto) 4.3, Absolute Lymphs (auto) 1.75, Nucleated RBC % 0, Sodium 138, Potassium 4.3, Chloride 104, Carbon Dioxide 23.4, Anion Gap 10, BUN 25 H, Creatinine 0.76, Estim Creat Clear Calc 93.11, Est GFR (MDRD) Non-Af 93, BUN/Creatinine Ratio 32.8 H, Glucose 157 H, Calcium 8.7 02/10/25 06:18: POC Glucose 135 H Physical Exam Const alert and no apparent distress Constitutional Narrative: sitting up in bed eating breakfast. HEENT head/scalp atraumatic and moist oral mucous membranes Neck no lymphadenopathy and supple Resp normal respiratory effort and no retractions Assessment & Plan Assessment/Plan (1) Severe pain: (2) Fracture of pubic ramus: QUALIFIERS: Encounter type: initial encounter Fracture type: closed Laterality: right Qualified Code(s): S32.591A - Other specified fractureof right pubis, initial encounter for closed fracture PLAN: Plan Debililty and weakness * due to acute nondisplaced right inferior and superior pubic process fracture * PT OT evaluation and treat. * Anticipated placement, still waiting on insurance authorization. Case has been escalated given the protracted approval process. Pelvic fracture * Atraumatic. X-ray shows acute nondisplaced fracture of the right inferior and superior pubic processes. * Has history of left hip fracture. * Check 25-hydroxy 13. Continue ergocalciferol. Chronic medical conditions: * Type 2 diabetes mellitus with diabetic neuropathy and gastroparesis: A1C was 13.2 on admission. on lantus 20 units bid. ISS. Accuchecks ACHS. Fair control. * History of nonobstructive CAD: on aspirin, high intensity statin and plavix. On Coreg. * Fungal rash: Has inframammary fungal rash. On nystatin powder * HFrEF: not in exacerbation. Has known EF of 30% on 09/01/2024, improved from previous EF of 15%. on lasix, entresto, spironolactone and midodrine.spironolactone held due to hyperkalemia. * Hypertension: on carvedilol. Spironolactone on hold due to hyperkalemia. Also on entresto * History of PAD s/p stents: on aspirin, plavix and statin. * Nicotine dependence: counseled to quit. Nicotine patch prn * GERD: on PPI * Depression: on escitalopram. * History of compression fracture of L3 and L5: PT/OT On board. Fall precautions. DVT prophylaxis: lovenox Disposition: still awaiting placement, pending precert. Charges/Coding Visit Charges Inpatient E&M: 48951 Subs Hosp L1 02/10/25 1002 <Electronically signed by Riccardo Shaikh DO> Cosigner Signature (if applicable): CC: ~ Signed [facility] Work Phone: 1(406) 134-856409-08-2025 Progress note Author Riccardo Shaikh [facility] Note Date/Time February 09, 2025 5:58pm [facility] Medical Records Department [address] [facility] [place] [address] Progress Note - Hospitalist 02/09/2504 MR#: [id number] Acct: [id number] Name: TRENTON JACKSON Rep #:[id number] : 1970 54 From: Riccardo Shaikh DO PCP: RUTH Lawrence, NON LICENSED NUCLEAR PLANT OPERATOR-C Statu s:ADM IN Location: OR3 [id number] Reason for Visit Chief Complaint: Severe Right Hip Pain and Inability to Ambulate. Subjective Subjective Upset that some physician told her that if her blood sugar stayed less than 180 that she could have cokes. Says she cannot tolerate diet Coke, Coke Zero and Pepsi- Cola equivalents. She does have a regular Pepsi at her bedside table which she said that she has been drinking very slowly over the past few days. Objective Data Objective Data Vital Signs: Vital Signs Temp Pulse Resp BP Pulse Ox O2 Del Method O2 Flow Rate 36.3 C L 81 16 125/77 H 99 Room Air 2 02/09/25 08:52 02/09/25 08:52 02/09/25 08:52 02/09/25 08:52 02/09/25 08:52 02/09/25 08:52 02/05/25 02:09 Oxygen Flow Rate (L/min) 2 Oxygen Delivery Method Room Air Weight: 83.3 kg Body Mass Index (BMI) 29.5 Intake & Output: Intake and Output for Last 24 Hours 02/07/25 02/08/25 02/09/25 23:59 23:59 23:59 Intake Total 450 / 450 Output Total 700 / 700 800 / 800 Balance -250 / -250 -800 / -800 Lab / Micro Data 02/09/25 06:02 02/09/25 06:02 Labs: Laboratory Results - last 24 hr 02/08/25 11:38: POC Glucose 151 H 02/08/25 16:55: POC Glucose 153 H 02/08/25 22:21: POC Glucose 172 H 02/09/25 05:42: POC Glucose 102 02/09/25 06:02: WBC 6.0, RBC 3.99 L, Hgb 10.8 L, Hct 34.4 L, MCV 86.2, MCH 27.1,MCHC 31.4 L, RDW Std Deviation 47.5 H, RDW Coeff of Spencer 15.0 H, Plt Count 221, MPV 9.3, Immature Gran % (Auto) 0.700, Neut % (Auto) 58.7, Lymph % (Auto) 30.8, [place] % (Auto) 7.7, Eos % (Auto) 1.3, Baso % (Auto) 0.8, Absolute Neuts (auto) 3.5, Absolute Lymphs (auto) 1.83, Nucleated RBC % 0, Sodium 139, Potassium 4.4, Chloride 104, Carbon Dioxide 26.5, Anion Gap 9, BUN 23 H, Creatinine 0.70, EstimCreat Clear Calc 101.09, Est GFR (MDRD) Non-Af 103, BUN/Creatinine Ratio 33.2 H,Glucose 113 H, Calcium 9.0 Physical Exam Const alert and oriented x3; Negative for healthy appearing General Appearance: cooperative and comfortable HEENT normocephalic and head/scalp atraumatic Resp normal respiratory effort, no retractions and no use of accessory muscles Neuro oriented x3 and moves all extremities Neuro Narrative: M Sensorium / Orientation: awake and alert Speech: speech normal Psych Psych Narrative: Began yelling Assessment & Plan Assessment/Plan (1) Severe pain: (2) Fracture of pubic ramus: QUALIFIERS: Encounter type: initial encounter Fracture type: closed Laterality: right Qualified Code(s): S32.591A - Other specified fractureof right pubis, initial encounter for closed fracture PLAN: Plan Debililty and weakness * due to acute nondisplaced right inferior and superior pubic process fracture * PT OT evaluation and treat. * Anticipated placement, currently waiting on insurance authorization. Pelvic fracture * Atraumatic. X-ray shows acute nondisplaced fracture of the right inferior and superior pubic processes. * Has history of left hip fracture. * Check 25-hydroxy 13. Will start ergocalciferol. Chronic medical conditions: * Type 2 diabetes mellitus with diabetic neuropathy and gastroparesis: A1C was 13.2 on admission. on lantus 20 units bid. ISS. Accuchecks ACHS. Fair control. * History of nonobstructive CAD: on aspirin, high intensity statin and plavix. On Coreg. * Fungal rash: Has inframammary fungal rash. On nystatin powder * HFrEF: not in exacerbation. Has known EF of 30% on 09/01/2024, improved from previous EF of 15%. on lasix, entresto, spironolactone and midodrine.spironolactone held due to hyperkalemia. * Hypertension: on carvedilol. Spironolactone on hold due to hyperkalemia. Also on entresto * History of PAD s/p stents: on aspirin, plavix and statin. * Nicotine dependence: counseled to quit. Nicotine patch prn * GERD: on PPI * Depression: on escitalopram. * History of compression fracture of L3 and L5: PT/OT On board. Fall precautions. DVT prophylaxis: lovenox Disposition: still awaiting placement, pending precert. Had long discussion with the patient as she was very upset the fact that she wasnot getting regular Coke while she was here. I reviewed through [employer] her A1c being 13.2. She initially said that she did not know what that meant but I told started told her what a normal number was and then she said it has been higher. Patient eventually got to the point where she was actually yelling at me despite calm measured communication on my behalf. I told her that I will come back and talk with her further later on the day once she started yelling atme. Charges/Coding Visit Charges Inpatient E&M: 74554 Subs Hosp L2 02/09/25 1302 <Electronically signed by Riccardo Jopperi DO> Cosigner Signature (if applicable): CC: ~ Signed ADDENDUM by Dr. Riccardo Shaikh, on 02/09/25 at 1758 Addendum Went back to see the patient as I told her to come back to see and talk with herand she was eating, focused on her food and manifesting no desire to speak with me further. 02/09/25 1758<Electronically signed by Riccardo Shaikh DO> Cosigner Signature (if applicable): cc: ~* Signed [facility] Work Phone: 1(191) 451-975209-07-2025 Progress note Author Talisha [facility] Note Date/Time February 08, 2025 1:26pm [facility] Medical Records Department [address] [place] [address] Progress Note 02/08/25 1322 MR#: [id number] Acct: [id number] Name: TRENTON JACKSON Rep #:[id number] : 1970 54 From: Talisha Boykin MD PCP: Zohreh Mckeon Gideon, NON LICENSED NUCLEAR PLANT OPERATOR-C Statu s:ADM IN Location: [facility] [id number] Subjective Subjective Patient seen and examined with her nurse by her bedside. She complained of abdominal pain due to constipation, and also of a fungal rash beneath her breasts. She is still awaiting placement. Review of systems is otherwise negative. Objective Data Objective Data Vital Signs: Vital Signs Temp Pulse Resp BP Pulse Ox O2 Del Method O2 Flow Rate 97.9 F 84 16 132/78 H 99 Room Air 2 02/08/25 07:59 02/08/25 07:59 02/08/25 07:59 02/08/25 07:59 02/08/25 07:59 02/08/25 07:59 02/05/25 02:09 Oxygen Flow Rate (L/min) 2 Oxygen Delivery Method Room Air Weight: 183 lb 6.793 oz Body Mass Index (BMI) 29.5 Intake & Output: Intake and Output for Last 24 Hours 02/06/25 02/07/25 02/08/25 23:59 23:59 23:59 Intake Total 450 / 450 Output Total 2049 / 2049 700 / 700 Balance -2049 / -2049 -250 / -250 Lab / Micro Data 02/08/25 06:28 02/08/25 06:28 Labs: Laboratory Results - last 24 hr 02/07/25 16:01: POC Glucose 99 02/07/25 22:48: POC Glucose 122 H 02/08/25 06:28: WBC 5.7, RBC 3.85 L, Hgb 10.6 L, Hct 33.3 L, MCV 86.5, MCH 27.5,MCHC 31.8 L, RDW Std Deviation 47.4 H, RDW Coeff of Spencer 15.0 H, Plt Count 211, MPV 9.6, Immature Gran % (Auto) 0.700, Neut % (Auto) 59.9, Lymph % (Auto) 28.0, [place] % (Auto) 9.3, Eos % (Auto) 1.2, Baso % (Auto) 0.9, Absolute Neuts (auto) 3.4, Absolute Lymphs (auto) 1.60, Nucleated RBC % 0, Sodium 139, Potassium 4.3, Chloride 105, Carbon Dioxide 24.7, Anion Gap 9, BUN 27 H, Creatinine 0.70, EstimCreat Clear Calc 101.04, Est GFR (MDRD) Non-Af 103, BUN/Creatinine Ratio 38.6 H,Glucose 102 H, Calcium 9.0 02/08/25 06:31: POC Glucose 107 H 02/08/25 11:38: POC Glucose 151 H Physical Exam Const alert, oriented x3 and no apparent distress General Appearance: cooperative and comfortable HEENT normocephalic, head/scalp atraumatic, hearing grossly normal bilaterally, moist oral mucous membranes and oropharynx normal Eyes EOMs intact bilaterally and conjunctivae normal Neck full ROM and supple Lymph Lymphatic: no lymphedema noted Chest inspection of chest normal Resp normal respiratory effort, normal air movement, no use of accessory muscles and clear to auscultation bilaterally Cardio regular rate, regular rhythm, S1 normal heart sound, S2 normal heart sound and no murmurs GI normal to inspection, nondistended, normoactive bowel sounds, soft to palpation,non-tender and non-distended Back/Spine normal ROM and normal to inspection Extremity normal to inspection, normal capillary refill, no clubbing, cyanosis or edema, no calf tenderness and no pedal edema General Extremity: no tenderness to palpation of joints or extremities Skin Skin Narrative: Inframammary fungal rash General Skin Exam: no breakdown Neuro oriented x3, CN's II-XII intact bilaterally, moves all extremities, no focal motor deficits and no sensory deficits noted Sensorium / Orientation: awake and alert Motor Exam: general weakness Psych mental status grossly normal, thought process normal, cooperative and affect normal Appearance: appropriate Assessment & Plan Assessment/Plan (1) Severe pain: (2) Fracture of pubic ramus: QUALIFIERS: Encounter type: initial encounter Fracture type: closed Laterality: right Qualified Code(s): S32.591A - Other specified fractureof right pubis, initial encounter for closed fracture PLAN: Plan #Debililty and weakness due to acute nondisplaced right inferior and superior pubic process fracture * admitted with a compliant of right hip pain and inability to ambulate. Denied any history of mechanical fall. * imaging showed the acute nondisplaced fracture of right inferior and superior pubic processes along with osteopenia. * on PO tylenol, PO oxycodone prn for pain. * fall precautions. * #Type 2 diabetes mellitus with diabetic neuropathy and gastroparesis * A1C was 13.2 on admission * on lantus 20 units bid. * ISS. Accuchecks ACHS. * #History of nonobstructive CAD * on aspirin, high intensity statin and plavix. On Coreg. * #Fungal rash * Has inframammary fungal rash. On nystatin powder * #HYperkalemia:resolved.. Continue holding spironolactone. #HFrEF: * not in exacerbation. Has known EF of 30% on 09/01/2024, improved from previous EF of 15%. * on lasix, entresto, spironolactone and midodrine. * spironolactone held due to hyperkalemia. * * #Hypertension: on carvedilol. Spironolactone on hold due to hyperkalemia. Also on entresto #History of PAD s/p stents: on aspirin, plavix and statin. #Nicotine dependence: counseled to quit. Nicotine patch prn #GERD: on PPI #Depression: on escitalopram. #History of compression fracture of L3 and L5: PT/OT On board. Fall precautions. DVT prophylaxis: lovenox Disposition: still awaiting placement, pending precert. Charges/Coding Visit Charges Inpatient E&M: 38251 Subs Hosp L2 02/08/25 1326 <Electronically signed by Talisha Boykin MD> Talisha Boykin MD Cosigner Signature (if applicable): CC: ~ Signed [facility] Work Phone: 1(999) 257-695209-06-2025 Progress note Author Talisha Patriciajaycee [facility] Note Date/Time February 07, 2025 3:57pm [facility] Medical Records Department [address] [place] [address] Progress Note 02/07/25 1428 MR#: [id number] Acct: [id number] Name: TRENTON JACKSON Rep #:[id number] : 1970 54 From: Talisha Boykin MD PCP: RUTH Lawrence, NON LICENSED NUCLEAR PLANT OPERATOR-C Statu s:ADM IN Location: [place] [address] Subjective Subjective Patient seen and examined. She still complains of pain. She has no other complaints and had an uneventful night. Review of systems otherwise negative. She has remained hemodynamically stable. Objective Data Objective Data Vital Signs: Vital Signs Temp Pulse Resp BP Pulse Ox O2 Del Method O2 Flow Rate 97.9 F 83 16 137/69 H 95 Room Air 2 02/07/25 08:56 02/07/25 08:56 02/07/25 08:56 02/07/25 08:56 02/07/25 08:56 02/07/25 08:56 02/05/25 02:09 Oxygen Flow Rate (L/min) 2 Oxygen Delivery Method Room Air Weight: 187 lb 6.287 oz Body Mass Index (BMI) 30.1 Intake & Output: Intake and Output for Last 24 Hours 02/05/25 02/06/25 02/07/25 23:59 23:59 23:59 Output Total 1599 / 1599 2049 / 2049 Balance -1599 / -1599 -2049 / -2049 Lab / Micro Data 02/07/25 06:10 02/07/25 06:10 Labs: Laboratory Results - last 24 hr 02/06/25 16:41: POC Glucose 170 H 02/06/25 21:42: POC Glucose 181 H 02/07/25 06:10: WBC 5.3, RBC 3.81 L, Hgb 10.4 L, Hct 33.0 L, MCV 86.6, MCH 27.3,MCHC 31.5 L, RDW Std Deviation 47.6 H, RDW Coeff of Spencer 15.0 H, Plt Count 216, MPV 9.6, Immature Gran % (Auto) 0.600, Neut % (Auto) 53.2, Lymph % (Auto) 35.5, [place] % (Auto) 8.5, Eos % (Auto) 1.3, Baso % (Auto) 0.9, Absolute Neuts (auto) 2.8, Absolute Lymphs (auto) 1.88, Nucleated RBC % 0, Sodium 139, Potassium 4.5, Chloride 104, Carbon Dioxide 24.8, Anion Gap 10, BUN 23 H, Creatinine 0.92, Estim Creat Clear Calc 77.68, Est GFR (MDRD) Non-Af 74, BUN/Creatinine Ratio 24.5 H, Glucose 179 H, Calcium 8.6 02/07/25 06:45: POC Glucose 176 H 02/07/25 11:47: POC Glucose 160 H Physical Exam Const alert, oriented x3, no apparent distress and average body habitus General Appearance: cooperative and comfortable HEENT normocephalic, head/scalp atraumatic, hearing grossly normal bilaterally, nasal mucous membranes and turbinates normal, moist oral mucous membranes and oropharynx normal Eyes PERRL, EOMs intact bilaterally and conjunctivae normal Neck full ROM and supple Lymph Lymphatic: no lymphedema noted Chest inspection of chest normal Resp normal respiratory effort, normal air movement, no retractions and no use of accessory muscles Cardio regular rate, regular rhythm, S1 normal heart sound, S2 normal heart sound and no murmurs GI normal to inspection, nondistended, normoactive bowel sounds, soft to palpation,non-tender and non-distended Back/Spine normal ROM Extremity normal to inspection, normal capillary refill, no clubbing, cyanosis or edema, no calf tenderness and no pedal edema General Extremity: no tenderness to palpation of joints or extremities Skin no rashes or lesions noted General Skin Exam: no breakdown Neuro oriented x3, CN's II-XII intact bilaterally, moves all extremities, no focal motor deficits and no sensory deficits noted Neuro Narrative: M Sensorium / Orientation: awake and alert Speech: speech normal Motor Exam: general weakness Psych mental status grossly normal, thought process normal, cooperative and affect normal Appearance: appropriate Assessment & Plan Assessment/Plan (1) Severe pain: (2) Fracture of pubic ramus: QUALIFIERS: Encounter type: initial encounter Fracture type: closed Laterality: right Qualified Code(s): S32.591A - Other specified fractureof right pubis, initial encounter for closed fracture PLAN: Plan #Debililty and weakness due to acute nondisplaced right inferior and superior pubic process fracture * admitted with a compliant of right hip pain and inability to ambulate. Denied any history of mechanical fall. * imaging showed the acute nondisplaced fracture of right inferior and superior pubic processes along with osteopenia. * on PO tylenol, PO oxycodone prn for pain. * fall precautions. * #Type 2 diabetes mellitus with diabetic neuropathy and gastroparesis * A1C was 13.2 on admission * on lantus 20 units bid. * ISS. Accuchecks ACHS. * #History of nonobstructive CAD * on aspirin, high intensity statin and plavix. On Coreg. * #HYperkalemia:resolved.. Continue holding spironolactone. #HFrEF: * not in exacerbation. Has known EF of 30% on 09/01/2024, improved from previous EF of 15%. * on lasix, entresto, spironolactone and midodrine. * spironolactone held due to hyperkalemia. * * #Hypertension: on carvedilol. Spironolactone on hold due to hyperkalemia. Also on entresto #History of PAD s/p stents: on aspirin, plavix and statin. #Nicotine dependence: counseled to quit. Nicotine patch prn #GERD: on PPI #Depression: on escitalopram. #History of compression fracture of L3 and L5: PT/OT On board. Fall precautions. DVT prophylaxis: lovenox Disposition: still awaiting placement, pending precert. Charges/Coding Visit Charges Inpatient E&M: 64960 Subs Hosp L2 02/07/25 9748 <Electronically signed by Talisha Boykin MD> Talisha Boykin MD Cosigner Signature (if applicable): CC: ~ Signed [facility] Work Phone: [phone]) [phone] Progress note Author Talisha [facility] Note Date/Time February 06, 2025 4:00pm [facility] Medical Records Department [address] [place] [address] Progress Note 02/06/25 1043 MR#: [id number] Acct: [id number] Name: TRENTON JACKSON Rep #:[id number] : 1970 54 From: Talisha Boykin MD PCP: Zohreh Mckeon, RUTH, NON LICENSED NUCLEAR PLANT OPERATOR-C Statu s:ADM IN Location: MS3 [id number] Subjective Subjective Patient seen and examined with her nurse by her bedside. She still complained ofpain. She had no other complaints. SHe is awaiting placement. Review of systems is otherwise negative. She has remained hemodynamically stable. Objective Data Objective Data Vital Signs: Vital Signs Temp Pulse Resp BP Pulse Ox O2 Del Method O2 Flow Rate 97.8 F 89 16 149/86 H 99 Room Air 2 02/06/25 08:47 02/06/25 10:38 02/06/25 08:47 02/06/25 10:38 02/06/25 08:47 02/06/25 08:47 02/05/25 02:09 Oxygen Flow Rate (L/min) 2 Oxygen Delivery Method Room Air Weight: 186 lb 11.704 oz Body Mass Index (BMI) 29.9 Intake & Output: Intake and Output for Last 24 Hours 02/04/25 02/05/25 02/06/25 23:59 23:59 23:59 Intake Total 480 / 480 Output Total 850 / 850 1600 / 1600 650 / 650 Balance -370 / -370 -1600 / -1600 -650 / -650 Lab / Micro Data 02/06/25 06:04 02/06/25 06:04 Labs: Laboratory Results - last 24 hr 02/05/25 11:23: POC Glucose 109 H 02/05/25 16:47: POC Glucose 146 H 02/05/25 21:59: POC Glucose 215 H 02/06/25 06:04: WBC 5.5, RBC 3.82 L, Hgb 10.4 L, Hct 32.7 L, MCV 85.6, MCH 27.2,MCHC 31.8 L, RDW Std Deviation 46.6 H, RDW Coeff of Spencer 14.7 H, Plt Count 206, MPV 9.6, Immature Gran % (Auto) 0.400, Neut % (Auto) 60.3, Lymph % (Auto) 28.8, [place] % (Auto) 7.8, Eos % (Auto) 1.6, Baso % (Auto) 1.1 H, Absolute Neuts (auto) 3.3, Absolute Lymphs (auto) 1.58, Nucleated RBC % 0, Sodium 137, Potassium 4.4, Chloride 103, Carbon Dioxide 24.1, Anion Gap 10, BUN 24 H, Creatinine 0.76, Estim Creat Clear Calc 93.87, Est GFR (MDRD) Non-Af 94, BUN/Creatinine Ratio 32.2 H, Glucose 221 H, Calcium 8.5 02/06/25 06:48: POC Glucose 236 H Physical Exam Const alert, oriented x3, no apparent distress and average body habitus General Appearance: cooperative and comfortable HEENT normocephalic, head/scalp atraumatic, hearing grossly normal bilaterally, nasal mucous membranes and turbinates normal, moist oral mucous membranes and oropharynx normal Eyes PERRL, EOMs intact bilaterally and conjunctivae normal Neck full ROM, no lymphadenopathy and supple Lymph Lymphatic: no lymphedema noted Chest inspection of chest normal Resp normal respiratory effort, normal air movement, no retractions, no use of accessory muscles and clear to auscultation bilaterally Auscultation: Negative for rales, rhonchi or wheezes Cardio regular rate, regular rhythm, S1 normal heart sound, S2 normal heart sound and no murmurs GI normal to inspection, nondistended, normoactive bowel sounds, soft to palpation,non-tender and non-distended Back/Spine normal ROM Extremity normal to inspection, normal capillary refill, no clubbing, cyanosis or edema, no calf tenderness and no pedal edema General Extremity: no tenderness to palpation of joints or extremities Skin no rashes or lesions noted Skin Narrative: Patient has evidence of rash, abscess, wounds or jaundice. General Skin Exam: no breakdown Neuro oriented x3, CN's II-XII intact bilaterally, moves all extremities, no focal motor deficits and no sensory deficits noted Sensorium / Orientation: awake, alert, oriented to person, oriented to place andoriented to time Speech: speech normal Motor Exam: general weakness Psych mental status grossly normal, thought process normal, cooperative and affect normal Appearance: appropriate Assessment & Plan Assessment/Plan (1) Severe pain: (2) Fracture of pubic ramus: QUALIFIERS: Encounter type: initial encounter Fracture type: closed Laterality: right Qualified Code(s): S32.591A - Other specified fractureof right pubis, initial encounter for closed fracture PLAN: Plan #Debililty and weakness due to acute nondisplaced right inferior and superior pubic process fracture * admitted with a compliant of right hip pain and inability to ambulate. Denied any history of mechanical fall. * imaging showed the acute nondisplaced fracture of right inferior and superior pubic processes along with osteopenia. * on PO tylenol, PO oxycodone prn for pain. * fall precautions. * #Type 2 diabetes mellitus with diabetic neuropathy and gastroparesis * A1C was 13.2 on admission * on lantus which was increased from 20 units daily to 20 units bid. * ISS. Accuchecks ACHS. * #History of nonobstructive CAD * on aspirin, high intensity statin and plavix. On Coreg. * #HYperkalemia:resolved.. Continue holding spironolactone. #HFrEF: * not in exacerbation. Has known EF of 30% on 09/01/2024, improved from previous EF of 15%. * on lasix, entresto, spironolactone and midodrine. * spironolactone held due to hyperkalemia. * * #Hypertension: on carvedilol. Spironolactone on hold due to hyperkalemia. Also on entresto #History of PAD s/p stents: on aspirin, plavix and statin. #Nicotine dependence: counseled to quit. Nicotine patch prn #GERD: on PPI #Depression: on escitalopram. #History of compression fracture of L3 and L5: PT/OT On board. Fall precautions. DVT prophylaxis: lovenox Disposition: still awaiting placement, pending precert. Charges/Coding Visit Charges Inpatient E&M: 39973 Subs Hosp L2 02/06/25 1600 <Electronically signed by Talisha Boykin MD> Talisha Boykin MD Cosigner Signature (if applicable): CC: ~ Signed [facility] Work Phone: 1(883) 366-223809-04-2025 Progress note Author [facility]isha [facility] Note Date/Time February 05, 2025 1:35pm [facility] Medical Records Department [address] [place] [address] Progress Note 02/05/25 1332 MR#: [id number] Acct: [id number] Name: TRENTON JACKSON Rep #:[id number] : 1970 54 From: Talisha Boykin MD PCP: Zohreh Mckeon, Gideon, NON LICENSED NUCLEAR PLANT OPERATOR-C Statu s:ADM IN Location: MS3 [id number] Subjective Subjective Patient seen and examined with her nurse by her bedside. She was comfortably eating breakfast, but complained of severe pain during my review. SHe denied anyfever, chills, cough, chest pain, palpitations, dizziness, nausea, vomiting or any other symptoms. Review of systems is otherwie negative. Objective Data Objective Data Vital Signs: Vital Signs Temp Pulse Resp BP Pulse Ox O2 Del Method O2 Flow Rate 96.8 F L 89 15 123/77 H 97 Room Air 2 02/05/25 07:37 02/05/25 07:37 02/05/25 07:37 02/05/25 07:37 02/05/25 07:37 02/05/25 07:37 02/05/25 02:09 Oxygen Flow Rate (L/min) 2 Oxygen Delivery Method Room Air Weight: 186 lb 11.704 oz Body Mass Index (BMI) 29.9 Intake & Output: Intake and Output for Last 24 Hours 02/03/25 02/04/25 02/05/25 23:59 23:59 23:59 Intake Total 240 / 240 480 / 480 Output Total 2200 / 2200 850 / 850 500 / 500 Balance -1960 / -1960 -370 / -370 -500 / -500 Lab / Micro Data 02/05/25 05:53 02/05/25 05:53 Labs: Laboratory Results - last 24 hr 02/04/25 16:47: POC Glucose 179 H 02/04/25 21:03: POC Glucose 151 H 02/05/25 05:53: WBC 5.8, RBC 3.87 L, Hgb 10.5 L, Hct 33.8 L, MCV 87.3, MCH 27.1,MCHC 31.1 L, RDW Std Deviation 48.6 H, RDW Coeff of Spencer 15.2 H, Plt Count 206, MPV 9.9, Immature Gran % (Auto) 0.500, Neut % (Auto) 56.0, Lymph % (Auto) 33.6, [place] % (Auto) 7.8, Eos % (Auto) 1.4, Baso % (Auto) 0.7, Absolute Neuts (auto) 3.3, Absolute Lymphs (auto) 1.95, Nucleated RBC % 0, Sodium 140, Potassium 4.7, Chloride 105, Carbon Dioxide 26.9, Anion Gap 8, BUN 23 H, Creatinine 0.74, EstimCreat Clear Calc 96.41, Est GFR (MDRD) Non-Af 97, BUN/Creatinine Ratio 30.6 H, Glucose 169 H, Calcium 8.5 02/05/25 06:40: POC Glucose 291 H 02/05/25 11:23: POC Glucose 109 H Physical Exam Const alert, oriented x3, no apparent distress and average body habitus General Appearance: cooperative and comfortable HEENT normocephalic, head/scalp atraumatic, hearing grossly normal bilaterally, nasal mucous membranes and turbinates normal, moist oral mucous membranes and oropharynx normal Eyes PERRL, EOMs intact bilaterally and conjunctivae normal Neck full ROM, no lymphadenopathy and supple Lymph Lymphatic: no lymphedema noted Chest inspection of chest normal Resp normal respiratory effort, normal air movement, no retractions, no use of accessory muscles and clear to auscultation bilaterally Cardio regular rate, regular rhythm, S1 normal heart sound, S2 normal heart sound, no murmurs, no rub, no gallops, no clicks and peripheral pulses 2+ throughout GI normal to inspection, nondistended, normoactive bowel sounds, soft to palpation,non-tender and non-distended Back/Spine normal ROM Extremity normal to inspection, normal capillary refill, no clubbing, cyanosis or edema, no calf tenderness and no pedal edema General Extremity: no tenderness to palpation of joints or extremities Skin no rashes or lesions noted General Skin Exam: no breakdown Neuro oriented x3, CN's II-XII intact bilaterally, moves all extremities, no focal motor deficits and no sensory deficits noted Sensorium / Orientation: awake and alert Speech: speech normal Motor Exam: general weakness Psych mental status grossly normal, thought process normal, cooperative and affect normal Appearance: appropriate Assessment & Plan Assessment/Plan (1) Severe pain: (2) Fracture of pubic ramus: QUALIFIERS: Encounter type: initial encounter Fracture type: closed Laterality: right Qualified Code(s): S32.591A - Other specified fractureof right pubis, initial encounter for closed fracture PLAN: Plan #Debililty and weakness due to acute nondisplaced right inferior and superior pubic process fracture * admitted with a compliant of right hip pain and inability to ambulate. Denied any history of mechanical fall. * imaging showed the acute nondisplaced fracture of right inferior and superior pubic processes along with osteopenia. * on PO tylenol, PO oxycodone prn for pain. * fall precautions. * #Type 2 diabetes mellitus with diabetic neuropathy and gastroparesis * A1C was 13.2 on admission * on lantus which was increased from 20 units daily to 20 units bid. * ISS. Accuchecks ACHS. * #History of nonobstructive CAD * on aspirin, high intensity statin and plavix. On Coreg. * #HYperkalemia: potassium is down to 4.7. Continue holding spironolactone. #HFrEF: * not in exacerbation. Has known EF of 30% on 09/01/2024, improved from previous EF of 15%. * on lasix, entresto, spironolactone and midodrine. * spironolactone held due to hyperkalemia. * #History of PAD s/p stents: on aspirin, plavix and statin. #Nicotine dependence: counseled to quit. Nicotine patch prn #GERD: on PPI #Depression: on escitalopram. #History of compression fracture of L3 and L5: PT/OT On board. Fall precautions. DVT prophylaxis: lovenox Disposition: awaiting placement, pending precert. Charges/Coding Visit Charges Inpatient E&M: 42466 Subs Hosp L2 02/05/25 1335 <Electronically signed by Talisha Boykin MD> Talisha Boykin MD Cosigner Signature (if applicable): CC: ~ Signed [facility] Work Phone: 1([phone]) 833-605209-03-2025 Progress note Author Talisha [facility] Note Date/Time February 04, 2025 6:31pm [facility] Medical Records Department [address] [place] [address] Progress Note 02/04/25 1124 MR#: [id number] Acct: [id number] Name: TRENTON JACKSON Rep #:[id number] : 1970 54 From: Talisha Boykin MD PCP: Zohreh Mckeon, VSC, NON LICENSED NUCLEAR PLANT OPERATOR-C Statu s:ADM IN Location: MS3 [id number] Subjective Subjective Patient seen and examined with her nurse by her bedside. SHe is complaining of pain and constipation. Review of systems is otherwise negative. Objective Data Objective Data Vital Signs: Vital Signs Temp Pulse Resp BP Pulse Ox O2 Del Method O2 Flow Rate 97.5 F L 78 18 102/68 98 Room Air 2 02/04/25 08:06 02/04/25 08:06 02/04/25 08:06 02/04/25 08:06 02/04/25 08:06 02/04/25 08:09 02/03/25 04:00 Oxygen Flow Rate (L/min) 2 Oxygen Delivery Method Room Air Weight: 179 lb 10.828 oz Body Mass Index (BMI) 28.8 Intake & Output: Intake and Output for Last 24 Hours 02/02/25 02/03/25 02/04/25 23:59 23:59 23:59 Intake Total 1440 / 1440 240 / 240 Output Total 2300 / 2300 2200 / 2200 Balance -860 / -860 -1960 / -1960 Lab / Micro Data 02/04/25 06:10 02/04/25 06:10 Labs: Laboratory Results - last 24 hr 02/03/25 11:10: POC Glucose 225 H 02/03/25 16:25: POC Glucose 172 H 02/03/25 21:22: POC Glucose 288 H 02/04/25 06:10: WBC 7.2, RBC 3.89 L, Hgb 10.5 L, Hct 33.7 L, MCV 86.6, MCH 27.0,MCHC 31.2 L, RDW Std Deviation 48.1 H, RDW Coeff of Spencer 15.1 H, Plt Count 194, MPV 9.5, Immature Gran % (Auto) 0.300, Neut % (Auto) 62.7, Lymph % (Auto) 26.4, [place] % (Auto) 8.5, Eos % (Auto) 1.4, Baso % (Auto) 0.7, Absolute Neuts (auto) 4.5, Absolute Lymphs (auto) 1.89, Nucleated RBC % 0, Sodium 139, Potassium 5.2 H, Chloride 106, Carbon Dioxide 25.4, Anion Gap 7, BUN 31 H, Creatinine 0.87, Estim Creat Clear Calc 80.49, Est GFR (MDRD) Non-Af 79, BUN/Creatinine Ratio 34.9 H, Glucose 160 H, Calcium 8.7 02/04/25 06:47: POC Glucose 301 H Physical Exam Const alert, oriented x3, no apparent distress and average body habitus General Appearance: cooperative and comfortable HEENT normocephalic, head/scalp atraumatic, hearing grossly normal bilaterally, nasal mucous membranes and turbinates normal, moist oral mucous membranes and oropharynx normal Eyes PERRL, EOMs intact bilaterally and conjunctivae normal Neck full ROM, no lymphadenopathy and supple Lymph Lymphatic: no lymphedema noted Chest inspection of chest normal Resp normal respiratory effort, normal air movement, no retractions, no use of accessory muscles and clear to auscultation bilaterally Cardio regular rate, regular rhythm, S1 normal heart sound, S2 normal heart sound and no murmurs GI normal to inspection, nondistended, normoactive bowel sounds, soft to palpation,non-tender and non-distended Back/Spine normal ROM Extremity normal to inspection, normal capillary refill, no clubbing, cyanosis or edema, no calf tenderness and no pedal edema Extremity Narrative: Tenderness to palpation noted in the right groin/pubic bone area. Stable. General Extremity: no tenderness to palpation of joints or extremities Skin no rashes or lesions noted General Skin Exam: no breakdown Neuro oriented x3, CN's II-XII intact bilaterally, moves all extremities, no focal motor deficits and no sensory deficits noted Neuro Narrative: Moves all extremities but painful with lower extremity movement Sensorium / Orientation: awake, alert, oriented to person, oriented to place andoriented to time Speech: speech normal Motor Exam: general weakness Psych mental status grossly normal, thought process normal, cooperative and affect normal Appearance: appropriate Assessment & Plan Assessment/Plan (1) Severe pain: (2) Fracture of pubic ramus: QUALIFIERS: Encounter type: initial encounter Fracture type: closed Laterality: right Qualified Code(s): S32.591A - Other specified fractureof right pubis, initial encounter for closed fracture PLAN: Plan #Debililty and weakness due to acute nondisplaced right inferior and superior pubic process fracture * admitted with a compliant of right hip pain and inability to ambulate. Denied any history of mechanical fall. * imaging showed the acute nondisplaced fracture of right inferior and superior pubic processes along with osteopenia. * on PO tylenol, PO oxycodone prn for pain. * fall precautions. * #Type 2 diabetes mellitus with diabetic neuropathy and gastroparesis * A1C was 13.2 on admission * on lantus which was increased from 20 units daily to 20 units bid. * ISS. Accuchecks ACHS. * #History of nonobstructive CAD * on aspirin, high intensity statin and plavix. On Coreg. * #HYperkalemia: K is still 5.2. REceived kayexalate yesterday, but is yet to havea bowel movement. Spironolactone still on hold. WIll give another dose of kayexalate today. #HFrEF: * not in exacerbation. Has known EF of 30% on 09/01/2024, improved from previous EF of 15%. * on lasix, entresto, spironolactone and midodrine. * spironolactone held due to hyperkalemia. * #History of PAD s/p stents: on aspirin, plavix and statin. #Nicotine dependence: counseled to quit. Nicotine patch prn #GERD: on PPI #Depression: on escitalopram. #History of compression fracture of L3 and L5: PT/OT On board. Fall precuations. DVT prophylaxis: lovenox Disposition: awaiting placement, pending precert. Charges/Coding Visit Charges Inpatient E&M: 64100 Subs Hosp L2 02/04/25 1831 <Electronically signed by Talisha Boykin MD> Talisha Boykin MD Cosigner Signature (if applicable): CC: ~ Signed [facility] Work Phone: 1(978) 336-893009-02-2025 Progress note Author Talisha [facility] Note Date/Time February 03, 2025 3:33pm [facility] Medical Records Department [address] [place] [address] Progress Note 09/02/25 1019 MR#: [id number] Acct: [id number] Name: TRENTON JACKSON Rep #:[id number] : 1970 54 From: Talisha Boykin MD PCP: Zohreh Mckeon Gideon, NON LICENSED NUCLEAR PLANT OPERATOR-C Statu s:ADM IN Location: MS3 SE265-0 Subjective Subjective Patient seen and examined with her nurse by her bedside. She still complained ofpain and wanted her pain meds. REview of systems is otherwise negative. She is awaiting placement. Objective Data Objective Data Vital Signs: Vital Signs Temp Pulse Resp BP Pulse Ox O2 Del Method O2 Flow Rate 97.3 F L 84 18 105/61 99 Room Air 2 02/03/25 09:01 02/03/25 09:01 02/03/25 09:01 02/03/25 09:01 02/03/25 09:01 02/03/25 09:06 02/03/25 04:00 Oxygen Flow Rate (L/min) 2 Oxygen Delivery Method Room Air Weight: 179 lb 10.828 oz Body Mass Index (BMI) 28.8 Intake & Output: Intake and Output for Last 24 Hours 02/01/25 02/02/25 02/03/25 23:59 23:59 23:59 Intake Total 1900 / 2230 1440 / 1440 Output Total 300 / 300 2300 / 2300 300 / 300 Balance 1600 / 1930 -860 / -860 -300 / -300 Lab / Micro Data 02/03/25 05:24 02/03/25 05:24 Labs: Laboratory Results - last 24 hr 02/02/25 12:00: POC Glucose 206 H 02/02/25 16:53: POC Glucose 190 H 02/02/25 21:44: POC Glucose 127 H 02/03/25 05:24: WBC 6.4, RBC 3.88 L, Hgb 10.8 L, Hct 34.0 L, MCV 87.6, MCH 27.8,MCHC 31.8 L, RDW Std Deviation 48.6 H, RDW Coeff of Spencer 15.2 H, Plt Count 188, MPV 10.3, Immature Gran % (Auto) 0.500, Neut % (Auto) 60.5, Lymph % (Auto) 29.2,[place] % (Auto) 7.8, Eos % (Auto) 1.4, Baso % (Auto) 0.6, Absolute Neuts (auto) 3.9, Absolute Lymphs (auto) 1.87, Nucleated RBC % 0, Sodium 136, Potassium 5.2 H, Chloride 107, Carbon Dioxide 22.1, Anion Gap 7, BUN 30 H, Creatinine 0.92, Estim Creat Clear Calc 76.12, Est GFR (MDRD) Non-Af 74, BUN/Creatinine Ratio 32.2 H, Glucose 119 H, Calcium 8.5 02/03/25 06:27: POC Glucose 159 H Physical Exam Const alert, oriented x3, no apparent distress and average body habitus General Appearance: cooperative and comfortable HEENT normocephalic, head/scalp atraumatic, hearing grossly normal bilaterally, nasal mucous membranes and turbinates normal, moist oral mucous membranes and oropharynx normal Eyes PERRL, EOMs intact bilaterally and conjunctivae normal Neck full ROM and supple Lymph Lymphatic: no lymphedema noted Chest inspection of chest normal Resp normal respiratory effort, normal air movement, no retractions, no use of accessory muscles and clear to auscultation bilaterally Cardio regular rate, regular rhythm, S1 normal heart sound, S2 normal heart sound, no murmurs, no rub, no gallops, no clicks and peripheral pulses 2+ throughout GI normal to inspection, nondistended, normoactive bowel sounds, soft to palpation,non-tender and non-distended Back/Spine normal ROM Extremity normal to inspection, normal capillary refill, no clubbing, cyanosis or edema, no calf tenderness and no pedal edema General Extremity: no tenderness to palpation of joints or extremities Skin no rashes or lesions noted General Skin Exam: no breakdown Neuro oriented x3, CN's II-XII intact bilaterally, moves all extremities, no focal motor deficits and no sensory deficits noted Sensorium / Orientation: awake and alert Speech: speech normal Motor Exam: general weakness Psych mental status grossly normal, thought process normal, cooperative and affect normal Appearance: appropriate Assessment & Plan Assessment/Plan (1) Severe pain: (2) Fracture of pubic ramus: PLAN: Plan #Debililty and weakness due to acute nondisplaced right inferior and superior pubic process fracture * admitted with a compliant of right hip pain and inability to ambulate. Denied any history of mechanical fall. * imaging showed the acute nondisplaced fracture of right inferior and superior pubic processes along with osteopenia. * on PO tylenol, PO oxycodone prn for pain. * fall precautions. * #Type 2 diabetes mellitus with diabetic neuropathy and gastroparesis * A1C was 13.2 on admission * on lantus which was increased from 20 units daily to 20 units bid. * ISS. Accuchecks ACHS. * #History of nonobstructive CAD * on aspirin, high intensity statin and plavix. On Coreg. * #HYperkalemia: K is 5.2. WIll give kayexalate, and hold spironolactone today. #HFrEF: * not in exacerbation. Has known EF of 30% on 09/01/2024, improved from previous EF of 15%. * on lasix, entresto, spironolactone and midodrine. * spironolactone held due to hyperkalemia. * #History of PAD s/p stents: on aspirin, plavix and statin. #Nicotine dependence: counseled to quit. Nicotine patch prn #GERD: on PPI #Depression: on escitalopram. #History of compression fracture of L3 and L5: PT/OT On board. Fall precuations. DVT prophylaxis: lovenox Disposition: awaiting placement, pending precert. Charges/Coding Visit Charges Inpatient E&M: 83599 Subs Hosp L2 02/03/25 1533 <Electronically signed by Talisha Boykin MD> Talisha Boykin MD Cosigner Signature (if applicable): CC: ~ Signed [facility] Work Phone: 1(435) 466-462409-01-2025 Progress note Author Talisha [facility] Note Date/Time February 02, 2025 4:48pm [facility] Medical Records Department [address] [place] [address] Progress Note 02/02/25 1211 MR#: [id number] Acct: [id number] Name: TRENTON JACKSON Rep #:[id number] : 1970 54 From: Talisha Boykin MD PCP: RUTH Lawrence, NON LICENSED NUCLEAR PLANT OPERATOR-C Statu s:ADM IN Location: [facility] UL920-6 Subjective Subjective Patient seen and examined. She still complained of generalised pain though she was lying calmly in bed at time of review. Review of systems is otherwise negative. SHe has remained hemodynamically stable. Objective Data Objective Data Vital Signs: Vital Signs Temp Pulse Resp BP Pulse Ox O2 Del Method O2 Flow Rate 97.4 F L 79 18 114/68 96 Room Air 2 02/02/25 08:37 02/02/25 08:37 02/02/25 08:37 02/02/25 08:37 02/02/25 08:37 02/02/25 08:37 02/02/25 04:25 Oxygen Flow Rate (L/min) 2 Oxygen Delivery Method Room Air Weight: 179 lb 7.3 oz Body Mass Index (BMI) 28.8 Intake & Output: Intake and Output for Last 24 Hours 01/31/25 02/01/25 02/02/25 23:59 23:59 23:59 Intake Total 1140 / 1390 1900 / 2230 680 / 680 Output Total 650 / 650 300 / 300 700 / 700 Balance 490 / 740 1600 / 1930 -20 / -20 Lab / Micro Data 02/02/25 04:25 02/02/25 04:25 Labs: Laboratory Results - last 24 hr 02/01/25 15:41: POC Glucose 179 H 02/01/25 22:20: POC Glucose 158 H 02/02/25 04:25: WBC 5.5, RBC 3.90 L, Hgb 10.6 L, Hct 33.3 L, MCV 85.4, MCH 27.2,MCHC 31.8 L, RDW Std Deviation 46.7 H, RDW Coeff of Spencer 15.0 H, Plt Count 189, MPV 9.6, Sodium 137, Potassium 5.0, Chloride 107, Carbon Dioxide 20.3 L, Anion Gap 9, BUN 25 H, Creatinine 0.86, Estim Creat Clear Calc 81.38, Est GFR (MDRD) Non-Af 81, BUN/Creatinine Ratio 29.0 H, Glucose 116 H, Calcium 8.4 02/02/25 06:32: POC Glucose 120 H 02/02/25 08:30: POC Glucose 121 H Physical Exam Const alert, oriented x3 and no apparent distress General Appearance: cooperative HEENT normocephalic, head/scalp atraumatic, moist oral mucous membranes and oropharynxnormal Eyes EOMs intact bilaterally Neck no lymphadenopathy and supple Lymph Lymphatic: no lymphedema noted Resp normal respiratory effort, normal air movement and clear to auscultation bilaterally Cardio regular rate, regular rhythm, S1 normal heart sound, S2 normal heart sound and no murmurs GI normal to inspection, nondistended, normoactive bowel sounds, soft to palpation,non-tender and non-distended Extremity normal capillary refill, no clubbing, cyanosis or edema and no calf tenderness General Extremity: no tenderness to palpation of joints or extremities Skin General Skin Exam: no breakdown Neuro no focal motor deficits and no sensory deficits noted Motor Exam: general weakness Psych thought process normal, cooperative and affect normal Appearance: appropriate Assessment & Plan Assessment/Plan (1) Severe pain: (2) Fracture of pubic ramus: QUALIFIERS: Encounter type: initial encounter Fracture type: closed Laterality: right Qualified Code(s): S32.591A - Other specified fractureof right pubis, initial encounter for closed fracture PLAN: Plan #Debililty and weakness due to acute nondisplaced right inferior and superior pubic process fracture * admitted with a compliant of right hip pain and inability to ambulate. Denied any history of mechanical fall. * imaging shoed the acute nondisplaced fracture of right inferior and superior pubic processes along with osteopenia. * on PO tylenol, POO oxycodone and IV morphine prn for pain. * fall precautions. * #Type 2 diabetes mellitus with diabetic neuropathy and gastroparesis * A1C was 13.2 on admission * on lantus which was increased from 20 units daily to 20 units bid. * ISS. Accuchecks ACHS. * #History of nonobstructive CAD * on aspirin, high intensity statin and plavix. On Coreg. * #HFrEF: * not in exacerbation. Has known EF of 30% on 09/01/2024, improved from previous EF of 15%. * on lasix, entresto, spironolactone and midodrine. * #History of PAD s/p stents: on aspirin, plavix and statin. #Nicotine dependence: counseled to quit. Nicotine patch prn #GERD: on PPI #Depression: on escitalopram. #History of compression fracture of L3 and L5: PT/OT On board. Fall precuations. DVT prophylaxis: lovenox Disposition: awaiting placement, pending precert. Charges/Coding Visit Charges Inpatient E&M: 21870 Subs Hosp L2 02/02/25 1648 <Electronically signed by Talisha Boykin MD> Talisha Boykin MD Cosigner Signature (if applicable): CC: ~ Signed [facility] Work Phone: 1(489) 233-423108-31-2025 Progress note Author Lei Justin [facility] Note Date/Time February 01, 2025 10 :03am [facility] Medical Records Department [address] [place] [address] Progress Note - Hospitalist 02/01/25 0911 MR#: [id number] Acct: [id number] Name: TRETNON JACKSON Rep #:[id number] : 1970 54 From: Lei swanson DO PCP: RUTH Lawrence, NON LICENSED NUCLEAR PLANT OPERATOR-C Statu s:ADM IN Location: [facility] [place] [id number] Reason for Visit Chief Complaint: Severe Right Hip Pain and Inability to Ambulate. Subjective Subjective Saw patient at bedside this morning. Patient appeared similar today to yesterday. She has continued to utilize both IV morphine and p.o. oxycodone about every 6 hours for pain control. Notes that her pain has been significant with movement and also kept her from sleeping well last night. Notably she doesappear fairly comfortable at rest on my encounter. She denies any other acute concerns this morning. Objective Data Objective Data Vital Signs: Vital Signs Temp Pulse Resp BP Pulse Ox O2 Del Method O2 Flow Rate 97.8 F 84 16 93/75 100 Room Air 2 02/01/25 08:34 02/01/25 08:34 02/01/25 08:34 02/01/25 08:34 02/01/25 08:34 02/01/25 08:34 01/31/25 06:37 Oxygen Flow Rate (L/min) 2 Oxygen Delivery Method Room Air Weight: 80.4 kg Body Mass Index (BMI) 28.5 Intake & Output: Intake and Output for Last 24 Hours 01/30/25 01/31/25 02/01/25 23:59 23:59 23:59 Intake Total 2400 / 2400 1140 / 1390 250 / 250 Output Total 900 / 900 650 / 650 300 / 300 Balance 1500 / 1500 490 / 740 -50 / -50 Lab / Micro Data 01/31/25 06:32 01/31/25 06:32 Labs: Laboratory Results - last 24 hr 01/31/25 11:53: POC Glucose 155 H 01/31/25 16:43: POC Glucose 165 H 01/31/25 21:43: POC Glucose 164 H 02/01/25 06:31: POC Glucose 172 H Physical Exam Const alert, oriented x3, no apparent distress and average body habitus Constitutional Narrative: Middle-age female, appears older than stated age, mildly fatigued appearing, otherwise sitting back fairly comfortably in bed, conversing normally, in no acute distress. Stable. General Appearance: cooperative and comfortable HEENT normocephalic, head/scalp atraumatic, hearing grossly normal bilaterally, nasal mucous membranes and turbinates normal and moist oral mucous membranes Eyes PERRL, EOMs intact bilaterally and conjunctivae normal Neck full ROM Chest inspection of chest normal Resp normal respiratory effort, normal air movement, no use of accessory muscles and clear to auscultation bilaterally Cardio regular rate, regular rhythm, no murmurs and peripheral pulses 2+ throughout GI normal to inspection, nondistended, normoactive bowel sounds, soft to palpation,non-tender and non-distended Back/Spine normal ROM Extremity normal to inspection and no pedal edema Extremity Narrative: Tenderness to palpation noted in the right groin/pubic bone area. Stable. Skin no rashes or lesions noted Psych mental status grossly normal Assessment & Plan Assessment/Plan (1) Fracture of pubic ramus: QUALIFIERS: Encounter type: initial encounter Fracture type: closed Laterality: right Qualified Code(s): S32.591A - Other specified fractureof right pubis, initial encounter for closed fracture (2) Ambulatory dysfunction: PLAN: Plan Patient is a 54-year-old female who presented to [facility] ED on 01/29/2025 with right hip/groin pain and inability to ambulate. 1. Inability to ambulate secondary to acute nondisplaced right inferior and superior pubic process fracture ? PT/OT/case management following. Hip/Pelvis x-ray on admit showed acute nondisplaced fracture of right inferior and superior pubic processes along with osteopenia. Mechanism of injury unclear. Pain control with scheduled Tylenol, p.o. oxycodone as needed and IV morphine as needed. Notably patient has reported significant pain and has been utilizing both oxycodone and morphine about every 6 hours. P.o. Celebrex 100 mg twice daily added on 01/30; notably will only use for limited time due to GI implications and cardiac issues at baseline. Will keep p.o. oxycodone on every 4 hours as needed and IV morphine on every 6 hours as needed, but I noted to patient that we will need to begin tapering down the IV morphine over the next 1 to 2 days, with tentative plan to have patient medically ready for discharge to SNF on Saturday 02/03. She was understanding of this. Bowel regimen is in place. 2. Poorly controlled type 2 diabetes mellitus with diabetic neuropathy and gastroparesis ? A1c 13.2% on admit. Blood glucose in the high 300s. Increased home Lantus from 20 units daily to 20 units twice daily with improved blood sugar control. Continue Lantus 20 twice daily and Humalog sliding scale with meals as needed. Continue home gabapentin and Reglan as needed. 3. History of nonobstructive CAD, chronic combined CHF, chronic hypertension, hyperlipidemia, severe peripheral vascular disease ? Stable and euvolemic on admit. Most recent echo on 09/01/2024 showed EF 30%, which is improved from prior EF of 15% in 2022. Has been hypotensive to the 80sto 90s systolic since admission and asymptomatic. History of peripheral artery stenting about 2 years ago. Continue home aspirin, Plavix, statin, Coreg, Lasix, Entresto, spironolactone and midodrine. Hold parameters in place. 4. Tobacco dependence ? Nicotine patch in place per patient request. Discussed cessation of discharge. Chronic medical conditions: ? GERD: Continue home PPI. ? Vitamin D deficiency: Continue home supplement. ? Depression: Stable. Continue home escitalopram ? History of compression fractures of L3 and L5: Complicates hospital course andcare. DVT prophylaxis: Lovenox CODE STATUS: Full code, verified Expected disposition: SNF, 1 to 2 days Total clinical time spent by myself addressing the patient's medical issues, reviewing all the data, and collaborating with patient's care team: 35 minutes. Charges/Coding Visit Charges Inpatient E&M: 34204 Subs Hosp L2 02/01/25 1003 <Electronically signed by Lei Justin DO> Cosigner Signature (if applicable): CC: ~ Signed [facility] Work Phone: 1(881) 843-842308-30-2025 Evaluation note* Diagnosis Onset Date Resolution Status Admit Date Ambulatory dysfunction acute Au jennifer 2024 1:49pm Fracture of pubic ramus acute A ugust 2024 1:49pm Hyperglycemia due to type 2 diabetes mellitus acute January 31, 2 025 1:49pm Overweight (BMI 25.0-29.9) acute January 31, 2025 1:49pm Severe pain acute January 31, 2025 1:49pm Sleep apnea acute January 31, 2025 1:49pm Tobacco abuse acute January 1:49pm [facility] Work Phone: [phone]) [phone] Progress note Author Lei [facility] Note Date/Time January 31, 2025 10 :36am [facility] Medical Records Department [address] [place] [address] Progress Note - Hospitalist 01/31/2519 MR#: [id number] Acct: [id number] Name: TRENTON JACKSON Rep #:[id number] : 1970 54 From: Lei swanson DO PCP: RUTH Lawrence, NON LICENSED NUCLEAR PLANT OPERATOR-C Statu s:ADM REHAN Location: [place] [address] Reason for Visit Chief Complaint: Severe Right Hip Pain and Inability to Ambulate. Subjective Subjective Saw patient at bedside this morning. PT/OT were about to work with the patient when I saw her. Patient was sitting back in bed and appeared fairly comfortablebut noted that she continued to have significant pain in her right pubic area. Had gotten doses of both IV morphine and p.o. oxycodone yesterday evening and overnight with moderate relief of pain. Denies any other new concerns this morning. Objective Data Objective Data Vital Signs: Vital Signs Temp Pulse Resp BP Pulse Ox O2 Del Method O2 Flow Rate 97.6 F L 82 17 106/61 100 Nasal Cannula 2 01/31/25 06:37 01/31/25 06:37 01/31/25 06:37 01/31/25 06:37 01/31/25 06:37 01/31/25 06:37 01/31/25 06:37 Oxygen Flow Rate (L/min) 2 Oxygen Delivery Method Nasal Cannula Weight: 80.6 kg Body Mass Index (BMI) 28.5 Intake & Output: Intake and Output for Last 24 Hours 01/29/25 01/30/25 01/31/25 23:59 23:59 23:59 Intake Total 2400 / 2400 300 / 300 Output Total 900 / 900 400 / 400 Balance 1500 / 1500 -100 / -100 Lab / Micro Data 01/31/25 06:32 01/31/25 06:32 Labs: Laboratory Results - last 24 hr 01/30/25 12:01: POC Glucose 259 H 01/30/25 16:10: POC Glucose 136 H 01/30/25 23:03: POC Glucose 233 H 01/31/25 06:32: WBC 7.7, RBC 4.67, Hgb 12.6, Hct 39.6, MCV 84.8, MCH 27.0, MCHC 31.8 L, RDW Std Deviation 44.3 H, RDW Coeff of Spencer 14.5, Plt Count 228, MPV 9.5,Immature Gran % (Auto) 0.400, Neut % (Auto) 60.2, Lymph % (Auto) 30.6, [place] % (Auto) 7.0, Eos % (Auto) 1.2, Baso % (Auto) 0.6, Absolute Neuts (auto) 4.7, Absolute Lymphs (auto) 2.36, Nucleated RBC % 0, Sodium 133, Potassium 5.0, Chloride 103, Carbon Dioxide 23.9, Anion Gap 7, BUN 15, Creatinine 0.72, Estim Creat Clear Calc 96.75, Est GFR (MDRD) Non-Af 101, BUN/Creatinine Ratio 21.4 H, Glucose 132 H, Calcium 8.8, Phosphorus 4.0, Magnesium 2.0, POC Glucose 155 H 01/31/25 07:30: Urine Color Yellow, Urine Clarity Clear, Urine pH 6.5, Ur Specific Metter 1.010, Urine Protein 30 H, Urine Glucose (UA) Normal, Urine Ketones Negative, Urine Occult Blood 10 H, Urine Nitrite Negative, Urine Bilirubin Negative, Urine Urobilinogen Normal, Ur Leukocyte Esterase 25 H, UrineRBC 0 SEEN, Urine WBC 0-5 SEEN, Ur Squamous Epith Cells 5-10 SEEN, Ur TransitionEpith Cell 0-5 SEEN, Urine Bacteria 1+, Urine Mucus 0 SEEN, Urine Yeast 1+, Urine Opiates Screen PRESUMPTIVE POSITIVE, U Buprenorphine Qual NEGATIVE, Ur Oxycodone Screen PRESUMPTIVE POSITIVE, Urine Methadone Screen NEGATIVE, Urine Fentanyl Screen NEGATIVE, Ur Barbiturates Screen NEGATIVE, Ur Phencyclidine ScrnNEGATIVE, Ur Amphetamines Screen NEGATIVE, U Benzodiazepines Scrn NEGATIVE, Urine Cocaine Screen NEGATIVE, U Cannabinoids Screen PRESUMPTIVE POSITIVE Physical Exam Const alert, oriented x3, no apparent distress and average body habitus Constitutional Narrative: Middle-age female, appears older than stated age, mildly fatigued appearing, otherwise sitting back fairly comfortably in bed, conversing normally, in no acute distress. General Appearance: cooperative and comfortable HEENT normocephalic, head/scalp atraumatic, hearing grossly normal bilaterally, nasal mucous membranes and turbinates normal and moist oral mucous membranes Eyes PERRL, EOMs intact bilaterally and conjunctivae normal Neck full ROM Chest inspection of chest normal Resp normal respiratory effort, normal air movement, no use of accessory muscles and clear to auscultation bilaterally Cardio regular rate, regular rhythm, no murmurs and peripheral pulses 2+ throughout GI normal to inspection, nondistended, normoactive bowel sounds, soft to palpation,non-tender and non-distended Back/Spine normal ROM Extremity normal to inspection and no pedal edema Extremity Narrative: Tenderness to palpation noted in the right groin/pubic bone area. Skin no rashes or lesions noted Psych mental status grossly normal Assessment & Plan Assessment/Plan (1) Fracture of pubic ramus: QUALIFIERS: Encounter type: initial encounter Fracture type: closed Laterality: right Qualified Code(s): S32.591A - Other specified fractureof right pubis, initial encounter for closed fracture (2) Ambulatory dysfunction: PLAN: Plan Patient is a 54-year-old female who presented to [facility] ED on 01/29/2025 with right hip/groin pain and inability to ambulate. 1. Inability to ambulate secondary to acute nondisplaced right inferior and superior pubic process fracture ? PT/OT/case management consulted. Hip/Pelvis x-ray on admit showed acute nondisplaced fracture of right inferior and superior pubic processes along with osteopenia. Mechanism of injury unclear. Pain control with scheduled Tylenol, p.o. oxycodone as needed and IV morphine as needed. Notably patient has reported significant pain and is been utilizing both oxycodone and morphine. P.o. Celebrex 100 mg twice daily added on 01/30; notably will only use for limited time due to GI implications and cardiac issues at baseline. Will decrease p.o. oxycodone and IV morphine to every 6 hours as needed, with plan totaper off morphine by tomorrow or Sunday. Bowel regimen ordered. Plan is for SNF placement on discharge. Not medically ready yet due to ongoing pain and need for IV pain medication; should be medically ready in the next 1 to 2 days. 2. Poorly controlled type 2 diabetes mellitus with diabetic neuropathy and gastroparesis ? A1c 13.2% on admit. Blood glucose in the high 300s. Increased home Lantus from 20 units daily to 20 units twice daily with improved blood sugar control. Continue Lantus 20 twice daily and Humalog sliding scale with meals as needed. Continue home gabapentin and Reglan as needed. 3. History of nonobstructive CAD, chronic combined CHF, chronic hypertension, hyperlipidemia, severe peripheral vascular disease ? Stable and euvolemic on admit. Most recent echo on 09/01/2024 showed EF 30%, which is improved from prior EF of 15% in 2022. Has been hypotensive to the 80sto 90s systolic since admission and asymptomatic. History of peripheral artery stenting about 2 years ago. Continue home aspirin, Plavix, statin, Coreg, Lasix, Entresto, spironolactone and midodrine. Hold parameters in place. 4. Tobacco dependence ? Nicotine patch in place per patient request. Discussed cessation of discharge. Chronic medical conditions: ? GERD: Continue home PPI. ? Vitamin D deficiency: Continue home supplement. ? Depression: Stable. Continue home escitalopram ? History of compression fractures of L3 and L5: Complicates hospital course andcare. DVT prophylaxis: Lovenox CODE STATUS: Full code, verified Expected disposition: SNF, 1 to 2 days Total clinical time spent by myself addressing the patient's medical issues, reviewing all the data, and collaborating with patient's care team: 35 minutes. Charges/Coding Visit Charges Inpatient E&M: 38871 Subs Hosp L2 01/31/25 1036 <Electronically signed by Lei Justin DO> Cosigner Signature (if applicable): CC: ~ Signed [facility] Work Phone: 1(484) 315-887208-29-2025 Progress note Author Nicole Trujillo [facility] Note Date/Time January 30, 2025 4: 56pm [facility] Medical Records Department [address] [place] [address] Progress Note - Hospitalist 01/30/25 0728 MR#: [id number] Acct: [id number] Name: TRENTON JACKSON Rep #:[id number] : 1970 54 From: Nicole Trujillo DO PCP: RUTH Lawrence, NON LICENSED NUCLEAR PLANT OPERATOR-C Statu s:ADM REHAN Location: [facility] [id number] Reason for Visit Chief Complaint: Severe Right Hip Pain and Inability to Ambulate. Subjective Subjective Patient complaining of pretty significant pain related to her fracture. States she is not sure what she did. Is agreeable to placement at discharge. I noted to her we would discussed with case management. I did let her know we would schedule some p.o. pain medication and attempt to avoid IV pain medicine. She voiced understanding. Objective Data Objective Data Vital Signs: Vital Signs Temp Pulse Resp BP Pulse Ox O2 Del Method O2 Flow Rate 98.1 F 75 15 117/51 L 100 Nasal Cannula 2 01/30/25 04:00 01/30/25 04:00 01/30/25 04:00 01/30/25 04:00 01/30/25 04:00 01/30/25 04:00 01/30/25 04:00 Oxygen Flow Rate (L/min) 2 Oxygen Delivery Method Nasal Cannula Weight: 80.7 kg Body Mass Index (BMI) 28.5 Intake & Output: Intake and Output for Last 24 Hours 01/28/25 01/29/25 01/30/25 23:59 23:59 23:59 Intake Total 150 / 150 Balance 150 / 150 Lab / Micro Data 01/30/25 05:39 01/30/25 05:39 Labs: Laboratory Results - last 24 hr 01/29/25 17:00: WBC 7.8, RBC 5.24, Hgb 14.3, Hct 43.4, MCV 82.8, MCH 27.3, MCHC 32.9, RDW Std Deviation 42.9, RDW Coeff of Spencer 14.4, Plt Count 240, MPV 10.1, Immature Gran % (Auto) 0.500, Neut % (Auto) 74.5 H, Lymph % (Auto) 18.4 L, [place] % (Auto) 5.4, Eos % (Auto) 0.4, Baso % (Auto) 0.8, Absolute Neuts (auto) 5.9, Absolute Lymphs (auto) 1.44, Nucleated RBC % 0, Sodium 134, Potassium 4.1, Chloride 99, Carbon Dioxide 23.8, Anion Gap 10, BUN 6, Creatinine 0.65 L, Estim Creat Clear Calc 104.07, Est GFR (MDRD) Non-Af 105, BUN/Creatinine Ratio 9.0 L, Glucose 344 H, Hemoglobin A1c 13.2 H, Calcium 8.9, Magnesium 2.0, C-React Prot Ext Range < 3.00, TSH 1.870 01/29/25 21:55: POC Glucose 241 H 01/29/25 22:24: Vitamin B12 344, Serum Folate 11.90, Ethyl Alcohol < 10.1 01/30/25 05:39: WBC 6.7, RBC 4.67, Hgb 12.7, Hct 39.6, MCV 84.8, MCH 27.2, MCHC 32.1, RDW Std Deviation 44.7 H, RDW Coeff of Spencer 14.6, Plt Count 209, MPV 10.2, Immature Gran % (Auto) 0.300, Neut % (Auto) 59.7, Lymph % (Auto) 31.3, [place] % (Auto) 6.7, Eos % (Auto) 1.3, Baso % (Auto) 0.7, Absolute Neuts (auto) 4.0, Absolute Lymphs (auto) 2.10, Nucleated RBC % 0, Sodium 132 L, Potassium 3.9, Chloride 99, Carbon Dioxide 22.7, Anion Gap 10, BUN 8, Creatinine 0.65 L, Estim Creat Clear Calc 107.23, Est GFR (MDRD) Non-Af 105, BUN/Creatinine Ratio 12.6, Glucose 385 H, Calcium 8.4, Phosphorus 3.2, Total Bilirubin 0.54, AST 17, ALT 11,Alkaline Phosphatase 110 H, Total Protein 5.5 L, Albumin 3.0 L, Globulin 2.6, Albumin/Globulin Ratio 1.2, Triglycerides 284 H, Cholesterol 178, LDL Cholesterol, Calc 82, VLDL Cholesterol 57 H, HDL Cholesterol 39 L, Cholesterol/HDL Ratio 4.53 01/30/25 06:15: POC Glucose 395 H Radiography Diagnostic Testing: Radiology Impression Hip/Pelvis X-Ray 01/29/25 17:44 IMPRESSION: Acute nondisplaced fracture of the right inferior and superior pubic processes. Reading Location: [facility] Physical Exam Const alert, oriented x3, no apparent distress and well nourished; Negative for average body habitus or healthy appearing Constitutional Narrative: Unkept, overweight, middle-aged, white female, appears much older than stated age, sitting up in bed, currently appears comfortable, does not look toxic, nursing at bedside HEENT head/scalp atraumatic and moist oral mucous membranes HEENT Narrative: Dentition is poor, Mallampati is 3, no thrush Head and Scalp: normocephalic Resp normal respiratory effort, no retractions, no use of accessory muscles and clearto auscultation bilaterally Resp Narrative: Mildly diminished diffusely Auscultation: Negative for rales, rhonchi or wheezes Cardio regular rate, regular rhythm, S1 normal heart sound, S2 normal heart sound, no murmurs, no rub, no gallops and no clicks GI normal to inspection, nondistended, normoactive bowel sounds, soft to palpation and non-tender Extremity no clubbing, cyanosis or edema Neuro oriented x3 and no focal motor deficits Neuro Narrative: Moves all extremities but painful with lower extremity movement Speech: speech normal Psych affect normal Psych Narrative: Eye contact is good, patient interacts appropriately Assessment & Plan Assessment/Plan (1) Fracture of pubic ramus: QUALIFIERS: Encounter type: initial encounter Fracture type: closed Laterality: right Qualified Code(s): S32.591A - Other specified fractureof right pubis, initial encounter for closed fracture (2) Hyperglycemia due to type 2 diabetes mellitus: QUALIFIERS: 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 twice daily--> would recommend use for limited time due to GI implications and cardiac issues at baseline - Start as needed oxycodone - Bowel regimen as ordered - PT/OT consultation - Anticipate placement needed at discharge--> case management/social work aware History of compression fractures of L3 and L5 - Old fractures - No acute issues Possible esophagitis/chronic GERD - Continue home PPI DM-2 - A1c is 13.2 -AM fasting blood sugar was greater than 300 - Continue subcu Lantus but increase from 20 daily to 20 twice daily - Change SSI to high dose -Accu-Cheks as ordered -Cardiac/carb controlled diet Gastroparesis - Continue home Reglan Diabetic neuropathy - Continue home gabapentin Vitamin D deficiency - Continue home ergocalciferol/cholecalciferol CAD/chronic combined heart failure/chronic hypotension/hyperlipidemia -It appears medication compliance is an issue -Last echocardiogram on 05/04/2023 showed EF of 15% with severe segmental systolic dysfunction-, stage III diastolic dysfunction and moderate eccentric mitral valve insufficiency - Continue home midodrine - Continue home goal-directed therapy with hold parameters - Continue home statin Severe peripheral vascular disease -Previous stent about 2 year ago -Continue outpatient follow-up with vascular surgery -continue aspirin and Plavix - No current acute issues Depression -Continue home medications Tobacco abuse -Recommend cessation -Nicotine patch if patient desires DVT prophylaxis -Continue enoxaparin 40 daily CODE STATUS -Full code Charges/Coding Visit Charges Inpatient E&M: 48131 Subs Hosp L2 01/30/25 1656 <Electronically signed by Nicole Trujlilo DO> Cosigner Signature (if applicable): CC: ~ Signed [facility] Work Phone: [phone] [id number] History and physical note Author Latricia Burdick [facility] Note Date/Time January 30, 2025 6: 48am [facility] Medical Records Department [address] [place] [address] H&P Exam - Hospitalist 01/29/251928 MR#: [id number] Acct: [id number] Name: TRENTON JACKSON Rep #:[id number] : 1970 54 From: Latricia Hood DO PCP: RUTH Lawrence, NON LICENSED NUCLEAR PLANT OPERATOR-C Statu s:ADM REHAN Location: MS3 [id number] [facility] - General General Date of Admission: 01/29/25 Date of Service: 01/29/25 Chief Complaint: Severe Right Hip Pain and Inability to Ambulate. 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 with subsequent stent to lower extremity (~2023) on baby aspirin and clopidogrel, history of DVT/PE; currently not on anticoagulation, DM-2; of unknown control on insulin glargine 20 units subcu daily plus insulin lispro SSI3 times daily, diabetic neuropathy; on gabapentin 3 times daily, history of cannabis abuse GERD; with history of suspected esophagitis and frequent nausea and vomiting on pantoprazole plus metoclopramide every 6 hours as needed, chronic constipation; on sennosides-docusate twice daily plus polyethylene glycol twice daily as needed, depression; on escitalopram, muscle spasms; on tizanidine 3 times daily, OA; with chronic back pain attributed to lumbar compression fractures plus history of Right hip fracture ~6 months ago; s/p ORIFon oxycodone every 4 hours as needed plus lidocaine patch and history of admission here from September 07, 2024 to September 16, 2024 for treatment of nausea and vomiting for [address] scan of the abdomen and pelvis demonstrating 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 Mcneil and urology with repeat cultures growing colony count of yeast that was not Ashley albicans with patient subsequently discharged home on 7 days of IV ertapenem who presents to [facility] ER complaining of severeRight hip pain and inability to ambulate. Ms. Jackson reports her symptoms began approximately 2 days prior to admissionwith gradually worsening Right hip pain that radiated down her Right thigh aftershe ran out out of pain medications as she claims she lost her PCP after failingto follow up. She then activated EMS who arrived and found patient in a wheelchair with normal vital signs. Patient denies fall or injury to her hip recently except for a fall in December 12, 2024 for which she was evaluated in the ER here. There was no report of associated fever, chills, nausea, vomiting, diarrhea, constipation, abdominal pain, chest pain, palpitations, heart racing, lower extremity edema, dysuria, hematuria, headache, rash, recent illness or recent medication changes. In the ER she was noted to have x-rays of the Right hip and pelvis that revealed acute nondisplaced fracture of the Right inferior and superior pubic processes in addition to previous vascular stent and osteopenia complicated by severe Right hip pain causing Ambulatory Dysfunction with additional laboratory evidence of Hyperglycemia of 344 mg/dL consistent with uncontrolled DM-2 with otherwise unremarkable laboratory studies and vital signs. She was then admitted to the general medical floor under observation status for ongoing care for stay with his expected to be less than 2 midnights. [facility] Medical History L5 vertebral fracture ESBL (extended [...] (congestive heart failure) CAD (coronary artery disease), jamul coronary artery Home Medications ?Medication ?Instructions ?Recorded ?Last Taken ?Type aspirin 81 mg capsule 81 mg PO DAILY heart health 08/10/22 09/06/24 History clopidogrel 75 mg tablet 75 mg PO DAILY anti platelet #30 02/03/23 09/06/24 Rx tabs pantoprazole 40 mg tablet,delayed 40 mg PO DAILY reflu x 04/18/23 09/06/24 History release sacubitril 24 mg-valsartan 26 mg 1 tab PO BID .bp 30 d ays #60 tabs 05/07/23 09/06/24 Rx tablet (Entresto) atorvastatin 80 mg tablet 80 mg PO QHS cholesterol 09/06/24 History gabapentin 300 mg capsule 300 mg PO TID nerve pain 09/06/24 History insulin lispro 100 unit/mL 1 sliding scale dose subcut TIDCM 12/29/23 09/06/24 History subcutaneous half-unit pen glucose DIC 2%/RINKU 6%/LIDOC 2% IN 1 - 2 pump subdermal Q6H NV N FOR 02/14/24 09/06/24 History saltsable FEET [...] usea #10 tabs 09/05/24 Unknown Rx tablet acetaminophen 325 mg tablet 650 mg (2 x 325 mg) PO Q4H PRN PRN 09/16/24 Unknown Rx Fever, pain 1-03/13 #0 tabs ertapenem 1 gram solution for 1 g IV Q24H 7 days #7 ea 09/16/24 Unknown Rx injection lidocaine 5 % topical patch 1 patch topical DAILY #30 ea 09/16/24 Unknown Rx ondansetron 4 mg disintegrating 4 mg PO Q6H PRN nausea and 09/16/24 Unknown Rx tablet vomiting #30 tabs oxycodone 5 mg tablet 5 mg PO Q4H PRN PRN pain 4-1 0 3 09/16/24 Unknown Rx days #14 tabs sennosides 8.6 mg-docusate sodium 2 tab PO BID #60 tab s 09/16/24 Unknown Rx 50 mg tablet (Stimulant Laxative Plus) metoclopramide HCl 10 mg tablet 10 mg PO Q6H PRN nause a and 09/21/24 Unknown Rx (Reglan) vomiting 5 days #20 tabs metoclopramide HCl 5 mg tablet 5 mg PO TID PRN PRN megan sea and 09/29/24 Unknown Rx (Reglan) vomiting #14 tabs Allergy/AdvReac Type Severity Reaction Status Date / Time latex Allergy Hives Verified 01/29/25 15:41 Family History Mother Thyroid disorder Diabetes Hypertension [...] safe at home: Yes ROS ROS Narrative Review of Systems: Constitutional: Patient denies fever or chills. Eyes: Patient denies changes in vision or discharge from eyes. ENT: Patient denies runny nose, sore throat or ear pain. Resp: Patient has chronic shortness of breath on as needed oxygen at home as perHPI. She denies cough or wheezing. CV: Patient denies chest pain, palpitations, heart racing or lower extremity edema. GI: Patient denies nausea, vomiting, diarrhea, constipation or abdominal pain. : Patient denies dysuria or hematuria. MSK: Patient admits to severe Right hip pain with ambulatory dysfunction as per HPI. Skin: Patient denies rash, abscess, wounds or jaundice. Psych: Patient denies symptoms of uncontrolled depression or anxiety. Neuro: Patient denies headache, paresthesias or focal neurologic weakness. Allergy: Patient denies lip swelling, tongue swelling or urticaria. Hematology: Patient denies easy bleeding or easy bruisability. Endocrinology: Patient admits to polyuria with hyperglycemia but she denies polydipsia, polyphagia or heat/cold intolerance. 14 point ROS otherwise negative except for positives noted above in HPI. Vital Signs Vital Signs Vital Signs: 01/29/25 15:40 01/29/25 17:31 Temperature 98.3 F Temperature Source Oral Pulse Rate 123 H 106 H Respiratory Rate 20 H 14 Blood Pressure 135/97 H 145/87 H Blood Pressure Mean 109 106 Pulse Ox 100 99 Oxygen Delivery Method Room Air Room Air Weight Weight: 166 lb 14.239 oz Body Mass Index (BMI) 26.9 Physical Exam Const alert and oriented x3 Constitutional Narrative: Mild disheveled and unkempt with signs of hirsutism and with patient appearing nontoxic but much older than stated age. General Appearance: cooperative HEENT normocephalic, head/scalp atraumatic, hearing grossly normal bilaterally and moist oral mucous membranes Eyes PERRL, EOMs intact bilaterally and conjunctivae normal Neck no lymphadenopathy and supple Resp normal respiratory effort, no retractions, no use of accessory muscles and clearto auscultation bilaterally Cardio regular rate and regular rhythm GI normal to inspection, nondistended, normoactive bowel sounds, soft to palpation,non-tender and non-distended Extremity Extremity Narrative: Patient has limited range of motion at the Right hip and is unable to stand and bear weight due to pain. No signs of neurovascular compromise. Evidence of previous Right second toe amputation and Left partial foot amputation. Skin Skin Narrative: Patient has evidence of rash, abscess, wounds or jaundice. Neuro oriented x3, CN's II-XII intact bilaterally, moves all extremities and no focal motor deficits Neuro Narrative: Patient is unable to ambulate due to pain in Right hip with otherwise nonfocal neurologic exam. Sensorium / Orientation: awake, alert, oriented to person, oriented to place andoriented to time Speech: speech normal Psych affect normal Results Medical Records Data Attestation: I reviewed the patient's medical records Lab / Micro Data Attestation: I reviewed the patient's lab results. 01/29/25 17:00 01/29/25 17:00 Labs: Laboratory Results - last 24 hr 01/29/25 17:00: WBC 7.8, RBC 5.24, Hgb 14.3, Hct 43.4, MCV 82.8, MCH 27.3, MCHC 32.9, RDW Std Deviation 42.9, RDW Coeff of Spencer 14.4, Plt Count 240, MPV 10.1, Immature Gran % (Auto) 0.500, Neut % (Auto) 74.5 H, Lymph % (Auto) 18.4 L, [place] % (Auto) 5.4, Eos % (Auto) 0.4, Baso % (Auto) 0.8, Absolute Neuts (auto) 5.9, Absolute Lymphs (auto) 1.44, Nucleated RBC % 0, Sodium 134, Potassium 4.1, Chloride 99, Carbon Dioxide 23.8, Anion Gap 10, BUN 6, Creatinine 0.65 L, Estim Creat Clear Calc 104.07, Est GFR (MDRD) Non-Af 105, BUN/Creatinine Ratio 9.0 L, Glucose 344 H, Calcium 8.9, C-React Prot Ext Range < 3.00 Imaging Radiology Impression Hip/Pelvis X-Ray 01/29/25 17:44 IMPRESSION: Acute nondisplaced fracture of the right inferior and superior pubic processes. Reading Location: [id number] Assessment & Plan Assessment/Plan (1) Fracture of pubic ramus: QUALIFIERS: Encounter type: initial encounter Fracture type: closed Laterality: right Qualified Code(s): S32.591A - Other specified fractureof right pubis, initial encounter for closed fracture (2) Severe pain: (3) Ambulatory dysfunction: (4) Hyperglycemia due to type 2 diabetes mellitus: QUALIFIERS: Diabetes mellitus exterminator helper insulin use: with exterminator helper use Qualified Code(s): E11.65 - Type 2 diabetes mellitus with hyperglycemia; Z79.4 - longterm (current) use of insulin (5) Overweight (BMI 25.0-29.9): (6) Tobacco abuse: (7) Sleep apnea: QUALIFIERS: Sleep apnea type: unspecified type Qualified Code(s):G47.30 - Sleep apnea, unspecified PLAN: Plan 1. X-rays of the Right hip and pelvis that revealed acute nondisplaced fractureof the Right inferior and superior pubic processes in addition to previous vascular stent and osteopenia - Admit to general medical floor under observationstatus. Continue scheduled acetaminophen q. 8 hours as before. Give morphine IV as needed for severe (level 6-10/10) pain. 2. Severe Right hip pain causing Ambulatory Dysfunction due to #1 in the setting of previously known OA; with chronic back pain attributed to lumbar compression fractures plus history of hip fracture ~6 months ago on oxycodone every 4 hours as needed plus lidocaine patch - PT/OT and Case Management consultand treat on rounds in a.m. for further recommendations as patient may likely require subacute rehabilitation, with help appreciated in advance. Patient alsowants help obtaining DME as she states what she has at home right now is suboptimal. 3. Hyperglycemia of 344 mg/dL consistent with uncontrolled DM-2 in the setting of chronic diabetic neuropathy complicating #1 & #2 - Maintain insulin glargine 20 units subcu daily and check FSBS q. AC/HS plus sliding scale insulin. Check hemoglobin A1c to objectively evaluate quality of diabetic control. We will continue gabapentin as before. 4. Overweight; with a BMI of 26.9 this admission plus GWYN adding to the burden of disease outlined from #1 - #3 - Weight loss will be recommended. Check TSH. Resume nocturnal BiPAP as previous. 5. Chronic tobacco abuse adding to the medical complexity of #1 - #4 - Tobacco Cessation will be strongly encouraged with Nicotine patch offered to control cravings. 6. 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 Mcneil and urology with repeat cultures growing colony count of yeast that was not Ashley albicans with patient subsequently discharged home on 7 days of IV ertapenem - Noted with no complaints related to bladder pathology at this time. 7. Essential hypertension; on sacubitril-valsartan furosemide, spironolactone and carvedilol twice daily - Maintain home regimen. 8. Chronic hypotension; on midodrine - Current therapy to be resumed as before. 9. Hyperlipidemia; on atorvastatin - Continue statin. 10. CAD - Stable. 11. Chronic systolic CHF; reduced LVEF of ~30% - Noted with no active complaints related to this issue at this time. 12. History of ischemic cardiomyopathy - Noted. 13. PAD; s/p Right second toe amputation and partial Left foot amputation due to infection with subsequent stent to lower extremity (~2023) on baby aspirin and clopidogrel - Resume BASA and clopidogrel as previous. 14. History of DVT/PE; currently not on anticoagulation - Noted. 15. History of cannabis abuse - Check UDS with Cannabis Cessation strongly encouraged. 16. GERD; with history of suspected esophagitis and frequent nausea and vomiting on pantoprazole plus metoclopramide every 6 hours as needed - Maintain present treatment. 17. Chronic constipation; on sennosides-docusate twice daily plus polyethylene glycol twice daily as needed - Resume bowel regimen. 18. Depression; on escitalopram - Continue escitalopram as before. 19. Muscle spasms; on tizanidine 3 times daily - Maintain present therapy. 20. DVT prophylaxis - Enoxaparin 40 mg sq daily plus SCD's. Total time: Approximately (but not less than) 70 minutes. Charges/Coding Visit Charges OBSV E&M: 42685 Observ/hosp same date L2 01/30/25 0648 <Electronically signed by Latricia Yao DO> Cosigner Signature (if applicable): CC: RUTH NON LICENSED NUCLEAR PLANT OPERATORBrian Mckeon; Dr. Latricia Yao DO~ Signed [facility] Work Phone: [phone]) 852-376808-28-2025 Discharge summary Author Martina Martínez [facility] Note Date/Time January 29, 2025 9: 23pm [facility] Medical Records Department [address] [place] [address] Emergency Department Summary 01/29/25 MR#: [id number] Acct: [id number] Name: TRENTON JACKSON Rep #:[id number] : 1970 54 From: Martina Gibson PCP: RUTH Lawrence, NON LICENSED NUCLEAR PLANT OPERATOR-C Statu s:ADM REHAN Location: MS3 [id number] HPI History of Present Illness Chief Complaint: Lower Extremity Injury Informant: patient Narrative Narrative: Patient is a 54-year-old female with mostly complex medical history including poorly controlled type 2 diabetes mellitus, hypertension, amputation of toe on the right foot, transmetatarsal amputation on the left foot, prior right hip fracture status post ORIF, cardiomyopathy and peripheral vascular disease presenting with worsening right hip pain. Patient states has been out of rehab facilities for various reasons over the past few months. She states she previously had been taking gabapentin for her pain as well as oxycodone and was getting it from her nursing facility most recently. She states she lost her primary care doctor because she been in out of the hospital and not been able tofollow-up. She states that she ran out of her gabapentin 3 days ago did have and having worsening pain. The pain is in her right groin and right hip and radiates down towards her right knee. She denies any acute trauma or injury butdoes note that she had a relatively low velocity fall about a month ago. She has had some mild numbness tingling down her legs since yesterday on the right side. Pain is worse with movement. She lives at home with her daughter. She states she has a hospital bed but the mattress is much too hard and is causing her more pain. Does report some associated nausea secondary to the pain. No other complaints or concerns at this time. [facility] Medical History L5 vertebral fracture ESBL [...] (congestive heart failure) CAD (coronary artery disease), jamul coronary artery Home Medications ?Medication ?Instructions ?Recorded [...] IN 1 - 2 pump subdermal Q6H NV N FOR 02/14/24 09/06/24 History saltsable FEET [...] PO BID PRN constipati on 06/29/24 Unknown Hi story gram/dose oral powder (Miralax) sennosides 8.6 mg-docusate [...] usea #10 tabs 09/05/24 Unknown Rx tablet acetaminophen 325 mg tablet 650 mg (2 x 325 mg) PO Q4H PRN PRN 09/16/24 Unknown Rx Fever, pain 1-03/13 #0 tabs ertapenem 1 gram solution for 1 g IV Q24H 7 days #7 ea 09/16/24 Unknown Rx injection lidocaine 5 % topical patch 1 patch topical DAILY #30 ea 09/16/24 Unknown Rx ondansetron 4 mg disintegrating 4 mg PO Q6H PRN nausea and 09/16/24 Unknown Rx tablet vomiting #30 tabs oxycodone 5 mg tablet 5 mg PO Q4H PRN PRN pain 4-1 0 3 09/16/24 Unknown Rx days #14 tabs sennosides 8.6 mg-docusate sodium 2 tab PO BID #60 tab s 09/16/24 Unknown Rx 50 mg tablet (Stimulant Laxative Plus) metoclopramide HCl 10 mg tablet 10 mg PO Q6H PRN nause a and 09/21/24 Unknown Rx (Reglan) vomiting 5 days #20 tabs metoclopramide HCl 5 mg tablet 5 mg PO TID PRN PRN megan sea and 09/29/24 Unknown Rx (Reglan) vomiting #14 tabs Allergy/AdvReac Type Severity Reaction Status Date / Time latex Allergy Hives Verified 01/29/25 15:41 Family History Mother Thyroid disorder Diabetes Hypertension [...] ROS ROS ED Constitutional Constitutional ED: Denies chills or fever(s) Cardiovascular Cardiovascular: Denies chest pain Respiratory/Chest Respiratory/Chest: Denies dyspnea Gastrointestinal Gastrointestinal: Reports nausea; Denies abdominal pain or vomiting Genitourinary Genitourinary ED: Denies dysuria Musculoskeletal Musculoskeletal: Reports other Details: Right hip and groin pain Integumentary Denies Abrasions or rash Neurologic Neurologic: Reports paresthesias RLE; Denies weakness Psychiatric Psychiatric: Reports anxiety Hematologic/Lymphatic Hematologic/Lymphatic: Denies easy bleeding or easy bruising EXAM Physical Exam Const Vital Signs: 01/29/25 15:40 01/29/25 17:31 01/29/25 19:33 Temperature 98.3 F 98 F Temperature Source Oral Pulse Rate 123 H 106 H 103 H Respiratory Rate 20 H 14 18 Blood Pressure 135/97 H 145/87 H 133/69 H Blood Pressure Mean 109 106 90 Pulse Ox 100 99 97 Oxygen Delivery Method Room Air Room Air Positive well nourished and well developed Constitutional Narrative: In mild distress secondary to pain General Appearance ED: well developed HEENT Reports moist mucous membranes normocephalic and atraumatic Neck full ROM and supple Chest Wall inspection of chest normal Resp normal respiratory effort and clear to auscultation bilaterally Cardio regular rate and regular rhythm GI non-tender and non-distended Palpation: soft; Negative for tender or guarding Back/Spine Back/Spine Narrative: Mild pain over the right SI joint. No midline spinal tenderness. Patient unable to tolerate straight leg test or movement of the hip on the right. Negative straight leg test on the left. Extremity Extremity Narrative: No obvious deformity. Significant tenderness to palpation of the right hip. Pain with range of motion of the right hip on logroll. No obvious joint effusion present. Neuro oriented x3 and no sensory deficits noted Neuro Narrative: Decreased range of motion of the right lower extremity and seems to be secondaryto right hip pain Sensorium / Orientation: alert Sensory Exam: sensory level loss detected Psych mental status grossly normal Mood & Affect: anxious Skin no wounds Lesions: no lesions Rashes: no rashes MDM MDM MDM Narrative Medical decision making narrative: Patient evaluated for worsening right hip pain that she states is triggered by running out of her gabapentin. Patient has significant pain with attempted range of motion of her right hip has had prior ORIF of that hip. Differential includes septic joint, acute on chronic pain, sciatica, bursitis, periprosthetic hip fracture and pelvic fracture. Labs obtained to look for any signs of inflammation which be consistent with an infected joint. Patient given IV morphine for pain control. Lab work shows a normal white blood cell count and largely normal CBC. BMP doesshow an elevated glucose of 344 however she has a normal anion gap and normal bicarb suggestive of chronic and compensated hyperglycemia. Her CRP is less than 3. Lab work is not consistent with infection or septic joint. Hip x-ray does show read out as acute nondisplaced fracture of the right inferior and superior pubic process. On my interpretation I do appreciate what appears to beright inferior rami fracture. Patient requires further pain control is given additional morphine and Toradol. She does not feel comfortable going home and with ambulation. Will be admitted for debility and assistance with ambulation. Case discussed with hospitalist, Dr. Ruano. Lab Data Attestation: I reviewed the patient's lab results. Labs: Laboratory Results - last 24 hr 01/29/25 17:00 WBC 7.8 RBC 5.24 Hgb 14.3 Hct 43.4 MCV 82.8 MCH 27.3 MCHC 32.9 RDW Std Deviation 42.9 RDW Coeff of Spencer 14.4 Plt Count 240 MPV 10.1 Immature Gran % (Auto) 0.500 Neut % (Auto) 74.5 H Lymph % (Auto) 18.4 L [place] % (Auto) 5.4 Eos % (Auto) 0.4 Baso % (Auto) 0.8 Absolute Neuts (auto) 5.9 Absolute Lymphs (auto) 1.44 Nucleated RBC % 0 Sodium 134 Potassium 4.1 Chloride 99 Carbon Dioxide 23.8 Anion Gap 10 BUN 6 Creatinine 0.65 L Estim Creat Clear Calc 104.07 Est GFR (MDRD) Non-Af 105 BUN/Creatinine Ratio 9.0 L Glucose 344 H Calcium 8.9 C-React Prot Ext Range < 3.00 Radiography Diagnostic Testing: Clinical Impression(s) from Imaging Studies Hip/Pelvis X-Ray 01/29/25 17:44 IMPRESSION: Acute nondisplaced fracture of the right inferior and superior pubic processes. Reading Location: [facility] Management Discussion w/another healthcare provider: Hospitalist Discharge Plan Triage Chief Complaint: Lower Extremity Injury ED Provider: Martina Martínez Dx/Rx/DC Orders Clinical Impression: Fracture of pubic ramus, Severe pain, Ambulatory dysfunction, Hyperglycemia Primary Care Provider: Zohreh Mckeon Disposition Disposition: Acute Care Hospital [facility] What to do if you have Problems For any increased pain, shortness of breath, bleeding, nausea or vomiting, chestpain, or any unexpected problems, contact your Primary Care Provider. Call [facility] ([phone]) or report to the closest Emergency Room. Call 911 if necessary. 01/29/252122 <Electronically signed by Martina Martínez DO> Cosigner Signature (if applicable): CC: FERNANDOC NON LICENSED NUCLEAR PLANT OPERATOR-C Zohreh Mckeon ~ Signed [facility] Work Phone: 1(276) 131-163608-28-2025 Discharge summary [facility] Medical Records Department [address] [place] [address] Emergency Department Summary 01/29/25 MR#: [id number] Acct: [id number] Name: TRENTON JACKSON Rep #:[id number] : 1970 54 From: Martina Gibson PCP: Zohreh Mckeon Gideon, NON LICENSED NUCLEAR PLANT OPERATOR-C Statu s:ADM REHAN Location: MS3 [id number] HPI History of Present Illness Chief Complaint: Lower Extremity Injury Informant: patient Narrative Narrative: Patient is a 54-year-old female with mostly complex medical history including poorly controlled type 2 diabetes mellitus, hypertension, amputation of toe on the right foot, transmetatarsal amputationon the left foot, prior right hip fracture status post ORIF, cardiomyopathy and peripheral vasculardisease presenting with worsening right hip pain. Patient states has been out of rehab facilities for various reasons over the past few months. She states she previously had been taking gabapentin for her pain as well as oxycodone and was getting it from her nursing facility most recently. She states she lost her primary care doctor because she been in out of the hospital and not been able tofollow-up. She states that she ran out of her gabapentin 3 days ago did have and having worsening pain. The pain is in her right groin and right hip and radiates down towards her right knee. She denies any acute trauma or injury butdoes note that she had a relatively low velocity fall about a month ago.She has had some mild numbness tingling down her legs since yesterday on the right side. Pain is worse with movement. She lives at home with her daughter. She states she has a hospital bed but the mattress is much too hard and is causing her more pain. Does report some associated nausea secondary to the pain. No other complaints or concerns at this time. [facility] Medical History L5 vertebral fracture ESBL [...] (congestive heart failure) CAD (coronary artery disease), jamul coronary artery Home Medications ?Medication ?Instructions ?Recorded [...] IN 1 - 2 pump subdermal Q6H NV N FOR 02/14/24 09/06/24 History saltsable FEET [...] PO BID PRN constipati on 06/29/24 Unknown Hi story gram/dose oral powder (Miralax) sennosides 8.6 mg-docusate [...] usea #10 tabs 09/05/24 Unknown Rx tablet acetaminophen 325 mg tablet 650 mg (2 x 325 mg) PO Q4H PRN PRN 09/16/24 Unknown Rx Fever, pain -03/13 #0 tabs ertapenem 1 gram solution for 1 g IV Q24H 7 days #7 ea 09/16/24 Unknown Rx injection lidocaine 5 % topical patch 1 patch topical DAILY #30 ea 09/16/24 Unknown Rx ondansetron 4 mg disintegrating 4 mg PO Q6H PRN nausea and 09/16/24 Unknown Rx tablet vomiting #30 tabs oxycodone 5 mg tablet 5 mg PO Q4H PRN PRN pain 4-1 0 3 09/16/24 Unknown Rx days #14 tabs sennosides 8.6 mg-docusate sodium 2 tab PO BID #60 tab s 09/16/24 Unknown Rx 50 mg tablet (Stimulant Laxative Plus) metoclopramide HCl 10 mg tablet 10 mg PO Q6H PRN nause a and 09/21/24 Unknown Rx (Reglan) vomiting 5 days #20 tabs metoclopramide HCl 5 mg tablet 5 mg PO TID PRN PRN megan sea and 09/29/24 Unknown Rx (Reglan) vomiting #14 tabs Allergy/AdvReac Type Severity Reaction Status Date / Time latex Allergy Hives Verified 01/29/25 15:41 Family History Mother Thyroid disorder Diabetes Hypertension [...] ROS ROS ED Constitutional Constitutional ED: Denies chills or fever(s) Cardiovascular Cardiovascular: Denies chest pain Respiratory/Chest Respiratory/Chest: Denies dyspnea Gastrointestinal Gastrointestinal: Reports nausea; Denies abdominal pain or vomiting Genitourinary Genitourinary ED: Denies dysuria Musculoskeletal Musculoskeletal: Reports other Details: Right hip and groin pain Integumentary Denies Abrasions or rash Neurologic Neurologic: Reports paresthesias RLE; Denies weakness Psychiatric Psychiatric: Reports anxiety Hematologic/Lymphatic Hematologic/Lymphatic: Denies easy bleeding or easy bruising EXAM Physical Exam Const Vital Signs: 01/29/25 15:40 01/29/25 17:31 01/29/25 19:33 Temperature 98.3 F 98 F Temperature Source Oral Pulse Rate 123 H 106 H 103 H Respiratory Rate 20 H 14 18 Blood Pressure 135/97 H 145/87 H 133/69 H Blood Pressure Mean 109 106 90 Pulse Ox 100 99 97 Oxygen Delivery Method Room Air Room Air Positive well nourished and well developed Constitutional Narrative: In mild distress secondary to pain General Appearance ED: well developed HEENT Reports moist mucous membranes normocephalic and atraumatic Neck full ROM and supple Chest Wall inspection of chest normal Resp normal respiratory effort and clear to auscultation bilaterally Cardio regular rate and regular rhythm GI non-tender and non-distended Palpation: soft; Negative for tender or guarding Back/Spine Back/Spine Narrative: Mild pain over the right SI joint. No midline spinal tenderness. Patient unable to tolerate straight leg test or movement of the hip on the right. Negative straight leg test on the left. Extremity Extremity Narrative: No obvious deformity. Significant tenderness to palpation of the right hip. Pain with range of motion of the right hip on logroll. No obvious joint effusion present. Neuro oriented x3 and no sensory deficits noted Neuro Narrative: Decreased range of motion of the right lower extremity and seems to be secondaryto right hip pain Sensorium / Orientation: alert Sensory Exam: sensory level loss detected Psych mental status grossly normal Mood & Affect: anxious Skin no wounds Lesions: no lesions Rashes: no rashes MDM MDM MDM Narrative Medical decision making narrative: Patient evaluated for worsening right hip pain that she states is triggered by running out of her gabapentin. Patient has significant pain with attempted range of motion of her right hip has had prior ORIF of that hip. Differential includes septic joint, acute on chronic pain, sciatica, bursitis, periprosthetic hip fracture and pelvic fracture. Labs obtained to look for any signs of inflammation which be consistent with an infected joint. Patient given IV morphine for pain control. Lab work shows a normal white blood cell count and largely normal CBC. BMP doesshow an elevated glucose of 344 however she has a normal anion gap and normal bicarb suggestive of chronic and compensated hyperglycemia. Her CRP is less than 3. Lab work is not consistent with infection or septic joint.Hip x-ray does show read out as acute nondisplaced fracture of the right inferior and superior pubic process. On my interpretation I do appreciate what appears to beright inferior rami fracture. Patient requires further pain control is given additional morphine and Toradol. She does not feel comfortable going home and with ambulation. Will be admitted for debility and assistance with ambulation. Case discussed with hospitalist, Dr. Ruano. Lab Data Attestation: I reviewed the patient's lab results. Labs: Laboratory Results - last 24 hr 01/29/25 17:00 WBC 7.8 RBC 5.24 Hgb 14.3 Hct 43.4 MCV 82.8 MCH 27.3 MCHC 32.9 RDW Std Deviation 42.9 RDW Coeff of Spencer 14.4 Plt Count 240 MPV 10.1 Immature Gran % (Auto) 0.500 Neut % (Auto) 74.5 H Lymph % (Auto) 18.4 L Plymouth % (Auto) 5.4 Eos % (Auto) 0.4 Baso % (Auto) 0.8 Absolute Neuts (auto) 5.9 Absolute Lymphs (auto) 1.44 Nucleated RBC % 0 Sodium 134 Potassium 4.1 Chloride 99 Carbon Dioxide 23.8 Anion Gap 10 BUN 6 Creatinine 0.65 L Estim Creat Clear Calc 104.07 Est GFR (MDRD) Non-Af 105 BUN/Creatinine Ratio 9.0 L Glucose 344 H Calcium 8.9 C-React Prot Ext Range < 3.00 Radiography Diagnostic Testing: Clinical Impression(s) from Imaging Studies Hip/Pelvis X-Ray 01/29/25 17:44 IMPRESSION: Acute nondisplaced fracture of the right inferior and superior pubic processes. Reading Location: [facility] Management Discussion w/another healthcare provider: Hospitalist Discharge Plan Triage Chief Complaint: Lower Extremity Injury ED Provider: Martina Martínez Dx/Rx/DC Orders Clinical Impression: Fracture of pubic ramus, Severe pain, Ambulatory dysfunction, Hyperglycemia Primary Care Provider: Zohreh Mckeon Disposition Disposition: Acute Care Hospital [facility] What to do if you have Problems For any increased pain, shortness of breath, bleeding, nausea or vomiting, chestpain, or any unexpected problems, contact your Primary Care Provider. Call [facility] ([phone]) or report tothe closest Emergency Room. Call 911 if necessary. 01/29/252122 Cosigner Signature (if applicable): CC: RUTH NON LICENSED NUCLEAR PLANT OPERATOR-C Zohreh Mckeon ~ Signed [facility]08-28-2025 Radiology Diagnostic study note [facility] Imaging Services [address] [place] [address] HIP, UNI W/ Pelvis 2-3 Views MR#: [id number] Acct: [id number] Name: TRENTON JACKSON Rep #: [id number] : 1970 F 54 From: Houston De Los Santos MD PCP: RUTH Lawrence, NON LICENSED NUCLEAR PLANT OPERATOR-C Status: REG ER Study:HIP, UNI W/ Pelvis 2-3 Views Date of Ex am: 01/29/25 Exam# [id number] Ordering Dr: Gideon Martínez DO PROCEDURE: HIP, UNI W/ PELVIS 2-3 VIEWS 01/29/2025 REASON FOR EXAM: RIGHT HIP PAIN TECHNIQUE: HIP, UNI W/ PELVIS 2-3 VIEWS Laterality: Right COMPARISON: Chest x-ray 11/01/2023. FINDINGS: Bones: Osteopenia. Acute nondisplaced fracture of the right inferior and superior pubic processes. Joints: Unremarkable. Soft tissues: No soft tissue abnormalities. Vascular stent. RAD/HIP, UNI W/ Pelvis 2-3 Views IMPRESSION: Acute nondisplaced fracture of the right inferior and superior pubic processes. Reading Location: [id number] CC: RUTH NON LICENSED NUCLEAR PLANT OPERATORBrian Mckeon; Dr. Martina Martínez, DO ~ Control Tower Operator: Signed [facility]07-11-2025 Radiology Diagnostic study [facility]07-11-2025 Radiology Diagnostic study [facility]04-20-2025 Hospital Discharge instructions Additional Instructions Follow-up with GI. Stay well-hydrated. Return for any other concerns. Can also follow-up with your PCP in the next 5 to 7 days.[facility] Work Phone: 1(335) 910-121704-15-2025 Consult note Author Josse Garcia [facility] Note Date/Time September 16, 2024 2:1 6pm [facility] Medical Records Department [address] [place] [address] Counseling Note - Pharmacy 09/16/24 1415 MR#: [id number] Acct: [id number] Name: TRENTON JACKSON Rep #:[id number] : 1970 54 From: Josse Garcia PCP: RUTH Lawrence, NON LICENSED NUCLEAR PLANT OPERATORBrian Statu s:ADM IN Y Location: [facility] [id number] Pharmacy [facility] Service has performed discharge medication reconciliation [...] patient was counselled on new medications by wildlife conservation officer Balta. Medications at Discharge Home Medications aspirin [...] Signature (if applicable): Date CC: ~ Signed [facility] Work Phone: 1(322) 335-932704-15-2025 Discharge summary Author Latricia Aaron [facility] Note Date/Time September 16, 2024 12: 41pm [facility] Medical Records Department [address] [place] [address] Discharge Summary 09/16/24 1201 MR#: [id number] Acct: [id number] Name: TRENTON JACKSON Rep #:[id number] : 1970 54 From: Latricia Aaron MD PCP: RUTH Lawrence, GLENN Statu s:ADM IN Location: [place] [address] Providers Date of Admission: 09/09/24 Date of Discharge: 09/16/24 Primary Care Physician: RUTH Lawrence, NON LICENSED NUCLEAR PLANT OPERATORRamilaC Consultations 09/11/24 12:37 Consult: Infectious Disease Routine Consulting Provider: Nichelle Mcneil Reason for Consult: emphysematous cystitis, hx ESBL EMERGENT Consult: No MD Notified: Yes Date Notified: 09/11/24 Time Notified: 12:37 Method of Notification: Verbal 09/14/24 16:30 Consult: Urology Routine Consulting Provider: Amish Tariq Reason for Consult: AM c/s: Emphysem cystitis, rec ESBL UTIs, cont pain, ID rec'd uro consul EMERGENT Consult: No MD Notified: Yes Date Notified: 09/15/24 Time Notified: [...] PO Q4H PRN PRN Fever, pain 1- 10 #0 tabs 09/16/24 ertapenem 1 gram solution [...] % (Auto) Cancelled, Lymph % (Auto) Cancelled, Plymouth % (Auto) Cancelled, Eos % (Auto) Cancelled, [...] Drop Cells Cancelled, Ovalocytes Cancelled, Stomatocytes Cancelled, Burris-Casey Bodies Cancelled, Lore Cells Cancelled, Bite Cells [...] (Auto) 79.4 H, Lymph % (Auto) 13.0L, Plymouth % (Auto) 6.2, Eos % (Auto) 0.5, [...] Latricia Aaron Primary Care Provider: Zohreh Mckeon [facility] Consulting Providers: Rosaura Crane; Nichelle Mcneil; Brenda Posadas; Amish Tariq Discharge Orders/Prescriptions Prescriptions: New ertapenem 1 gram recon soln 1 g IV Q24H 7 Days Qty: 7 0RF Rx Instructions: Dx: emphysematous cystitis. Weekly bmp, LFT, and cbc while on iv abx. Fax to [phone]. acetaminophen 325 mg Tablet 650 mg PO [...] 0RF Referrals / Follow Up: Zohreh Mckeon, NON LICENSED NUCLEAR PLANT OPERATOR-C [Primary Care Provider] - Within 1 Week Disposition Disposition (needs filled in before D/C Order can be placed): Home, Self Care Charges/Coding Visit Charges Inpatient E&M: 45493 Disch Hosp >30min 09/16/24 1241 <Electronically signed by Latricia Aaron MD> Cosigner Signature (if applicable): CC: RUTH NON LICENSED NUCLEAR PLANT OPERATOR-C Zohreh Mckeon; Dr. Latricia Aaron MD~ Signed [facility] Work Phone: [phone]) 694-333504-15-2025 Progress note Author Latricia Aaron [facility] Note Date/Time September 16, 2024 12: 01pm [facility] Medical Records Department [address] [facility] [address] Progress Note - Hospitalist 09/16/24812 MR#: [id number] Acct: [id number] Name: TRENTON JACKSON Rep #:[id number] : 1970 54 From: Latricia Aaron MD PCP: RUTH Lawrence, NON LICENSED NUCLEAR PLANT OPERATOR-C Statu s:ADM IN Location: [place] [address] Reason for Visit Reason for Visit: Diagnoses [...] 1201 <Electronically signed by Latricia Aaron MD> Cosigner Signature (if applicable): CC: ~ Signed [facility] Work Phone: 1(950) 715-644104-15-2025 Progress note Author Nichelle Mcneil [facility] Note Date/Time September 16, 2024 10: 18am [facility] Medical Records Department [address] [place] [address] Progress Note - Infect Disease 09/16/24 1017 MR#: [id number] Acct: [id number] Name: TRENTON JACKSON Rep #:[id number] : 1970 54 From: Nichelle osborne MD PCP: Zohreh Mckeon, RUTH, NON LICENSED NUCLEAR PLANT OPERATOR-C Statu s:ADM IN Location: [place] [address] Physical Exam Narrative Not feeling well, ongoing [...] Cosigner Signature (if applicable): CC: ~ Signed [facility] Work Phone: 1(286) 586-754604-15-2025 [facility]04-14-2025 Progress note Author Nichelle [facility] Note Date/Time September 15, 2024 2:2 7pm [facility] Medical Records Department [address] [place] [address] Progress Note - Infect Disease 09/15/24 1426 MR#: [id number] Acct: [id number] Name: TRENTON JACKSON Rep #:[id number] : 1970 54 From: Nichelle osborne MD PCP: RUTH Lawrence, NON LICENSED NUCLEAR PLANT OPERATOR-C Statu s:ADM IN Location: [place] [address] Physical Exam Narrative Ongoing bladder pain, concerned [...] Cosigner Signature (if applicable): CC: ~ Signed [facility] Work Phone: [phone]) 541-655604-14-2025 Progress note Author Latricia Aaron [facility] Note Date/Time September 15, 2024 11: 29am [facility] Medical Records Department [address] [place] [address] Progress Note - Hospitalist 09/15/24721 MR#: [id number] Acct: [id number] Name: TRENTON JACKSON Rep #:[id number] : 1970 54 From: Latricia Aaron MD PCP: RUTH Lawrence, NON LICENSED NUCLEAR PLANT OPERATOR-C Statu s:ADM IN Location: [place] [address] Reason for Visit Reason for Visit: Diagnoses [...] (Auto) 74.8 H, Lymph % (Auto) 14.8 L,Plymouth % (Auto) 8.1, Eos % (Auto) 1.2, [...] documentation, 38minutes Charges/Coding Visit Charges Inpatient E&M: 61616 Subs Hosp L2 09/15/24 1129 <Electronically signed by Latricia Aaron MD> Cosigner Signature (if applicable): CC: ~ Signed [facility] Work Phone: [phone]) 660-778404-14-2025 Consult note Author Amish Tariq [facility] Note Date/Time September 15, 2024 11: 13am [facility] Medical Records Department [address] [place] [address] Consultation - Urology 09/15/24 1112 MR#: [id number] Acct: [id number] Name: TRENTON JACKSON Rep #:[id number] : 1970 54 From: Amish Tariq MD PCP: Zohreh Mckeon, [facility], NON LICENSED NUCLEAR PLANT OPERATOR-C Statu s:ADM IN Location: [place] [address] HPI Consult Data Date of Consult: 09/15/24 [...] from urology. Call w questions. [facility] Medical History L5 vertebral fracture ESBL (extended [...] (congestive heart failure) CAD (coronary artery disease), jamul coronary artery Home Medications ?Medication ?Instructions ?Recorded [...] IN 1 - 2 pump subdermal Q6H NV N FOR 02/14/24 09/06/24 History saltsable FEET [...] (Auto) 74.8 H, Lymph % (Auto) 14.8 L,[place] % (Auto) 8.1, Eos % (Auto) 1.2, [...] MD> Cosigner Signature (if applicable): CC: RUTH NON LICENSED NUCLEAR PLANT OPERATOR-C Zohreh Mckeon~ Signed [facility] Work Phone: [phone]) [phone] Progress note Author Brenda Posadas [facility] Note Date/Time September 14, 2024 4:3 5pm [facility] Medical Records Department [address] [place] [address] Progress Note - Hospitalist 09/14/24 0910 MR#: [id number] Acct: [id number] Name: TRENTON JACKSON Rep #:[id number] : 1970 54 From: Brenda Posadas MD PCP: RUTH Lawrence, NON LICENSED NUCLEAR PLANT OPERATOR-C Statu s:ADM IN Location: [place] [address] Reason for Visit Reason for Visit: Diagnoses [...] (Auto) 72.3 H, Lymph % (Auto) 19.3, Plymouth % (Auto) 6.0, Eos % (Auto) 1.3, [...] documentation, 38Minutes Charges/Coding Visit Charges Inpatient E&M: 73954 Subs Hosp L2 09/14/24 1635 <Electronically signed by Brenda Posadas MD> Cosigner Signature (if applicable): CC: ~ Signed [facility] Work Phone: [phone]) 107-921404-12-2025 Progress note Author Brenda Posadas [facility] Note Date/Time September 13, 2024 5:3 4pm [facility] Medical Records Department [address] [place] [address] Progress Note - Hospitalist 09/13/24 0938 MR#: [id number] Acct: [id number] Name: TRENTON JACKSON Rep #:[id number] : 1970 54 From: Brenda Posadas MD PCP: Zohreh Mckeon, [facility], NON LICENSED NUCLEAR PLANT OPERATOR-C Statu s:ADM IN Location: [place] [address] Reason for Visit Reason for Visit: Diagnoses [...] 23:59 23:59 23:59 Intake Total 1650 / 2050 1487.29 / 1487.29 120 / 120 Output Total 1100 / 1100 Balance 1650 / 1250 387.29 / 387.29 120 / 120 Lab / Micro Data 09/13/24 05:50 09/13/24 05:50 Labs: Laboratory Results - last 24 hr 09/12/24 12:20: POC Glucose 195 H 09/12/24 16:50: Urine Color Straw, Urine Clarity Clear, Urine pH 6.0, Ur Specific Metter 1.010, Urine Protein 15 H, Urine Glucose [...] 75.6 H, Lymph % (Auto) 14.4 L, Plymouth % (Auto) 6.9, Eos % (Auto) 1.6, [...] documentation, 40Minutes Charges/Coding Visit Charges Inpatient E&M: 07126 Subs Hosp L2 09/13/24 1734 <Electronically signed by Brenda Posadas MD> Cosigner Signature (if applicable): CC: ~ Signed [facility] Work Phone: [phone]) 479-841404-11-2025 Progress note Author Brenda Posadas [facility] Note Date/Time September 12, 2024 4:2 3pm [facility] Medical Records Department [address] [place] [address] Progress Note - Hospitalist 09/12/24 1615 MR#: [id number] Acct: [id number] Name: TRENTON JACKSON Rep #:[id number] : 1970 54 From: Brenda Posadas MD PCP: RUTH Lawrence, NON LICENSED NUCLEAR PLANT OPERATOR-C Statu s:ADM IN Location: [place] [address] Reason for Visit Reason for Visit: Diagnoses [...] 84 14 106/62 97 Room Air 09/12/24 14:25 09/12/24 14:25 09/12/24 14:25 09/12/24 14:25 09/12/24 14:25 09/12/24 14:40 Oxygen Delivery Method Room Air Weight: 83.9 kg Body Mass Index (BMI) 29.0 Intake & Output: Intake and Output for Last 24 Hours 09/10/24 09/11/24 09/12/24 23:59 23:59 23:59 Intake Total 1410 / [...] Neut % (Auto) 67.6, Lymph % (Auto) 23.2,Plymouth % (Auto) 5.8, Eos % (Auto) 1.8, [...] documentation, 38Minutes Charges/Coding Visit Charges Inpatient E&M: 79885 Subs Hosp L2 09/12/24 2249 <Electronically signed by Brenda Posadas MD> Cosigner Signature (if applicable): CC: ~ Signed [facility] Work Phone: 1(225) 294-371004-11-2025 Consult note Author Nihcelle Mcneil [facility] Note Date/Time September 12, 2024 2:5 8pm [facility] Medical Records Department [address] [place] [address] Consultation - Infectious Dx 09/12/24 1453 MR#: [id number] Acct: [id number] Name: TRENTON JACKSON Rep #:[id number] : 1970 54 From: Nichelle osborne MD PCP: Zohreh Mckeon, [facility], NON LICENSED NUCLEAR PLANT OPERATOR-C Statu s:ADM IN Location: [place] [address] Assessment & Plan Assessment/Plan (1) Emphysematous cystitis: [...] neg except as noted above. [facility] Medical History L5 vertebral fracture ESBL (extended [...] (congestive heart failure) CAD (coronary artery disease), jamul coronary artery Home Medications ?Medication ?Instructions ?Recorded [...] IN 1 - 2 pump subdermal Q6H NV N FOR 02/14/24 09/06/24 History saltsable FEET [...] Neut % (Auto) 67.6, Lymph % (Auto) 23.2,P[place]mouth % (Auto) 5.8, Eos % (Auto) 1.8, [...] MD> Cosigner Signature (if applicable): CC: RUTH NON LICENSED NUCLEAR PLANT OPERATOR-C Zohreh Mckeon~ Signed [facility] Work Phone: 1([phone]) 968-788504-10-2025 Progress note Author Brenda Posadas [facility] Note Date/Time September 11, 2024 4:1 0pm [facility] Medical Records Department [address] [place] [address] Progress Note - Hospitalist 09/11/24 1606 MR#: [id number] Acct: [id number] Name: TRENTON JACKSON Rep #:[id number] : 1970 54 From: Brenda Posadas MD PCP: RUTH Lawrence, NON LICENSED NUCLEAR PLANT OPERATOR-C Statu s:ADM IN Location: [facility] [id number] Reason for Visit Reason for Visit: [...] % (Auto) 68.0, Lymph % (Auto) 22.6, [place] % (Auto) 6.3, Eos % (Auto) 1.9, [...] the colon consistent with constipation. Reading Location: [facility] Physical Exam Narrative General: Alert, oriented, no [...] documentation, 37Minutes Charges/Coding Visit Charges Inpatient E&M: 26364 Subs Hosp L2 09/11/24 1610 <Electronically signed by Brenda Posadas MD> Cosigner Signature (if applicable): CC: ~ Signed [facility] Work Phone: [phone]) 262-672904-10-2025 Radiology Diagnostic study [facility]04-09-2025 Progress note Author Brenda Posadas [facility] Note Date/Time September 10, 2024 5:34 pm [facility] Medical Records Department [address] [place] [address] Progress Note - Hospitalist 09/10/24 1731 MR#: [id number] Acct: [id number] Name: TRENTON JACKSON Rep #:[id number] : 1970 54 From: Brenda Posadas MD PCP: RUTH Lawrence, NON LICENSED NUCLEAR PLANT OPERATOR-C Statu s:ADM IN Location: [place] [address] Reason for Visit Reason for Visit: Diagnoses [...] (Auto) 72.8 H, Lymph % (Auto) 18.5L, [place] % (Auto) 6.0, Eos % (Auto) 1.6, [...] Posadas MD Charges/Coding Visit Charges Inpatient E&M: 39507 Subs Hosp L1 09/10/24 1734 <Electronically signed by Brenda Posadas MD> Cosigner Signature (if applicable): CC: ~ Signed [facility] Work Phone: 1(901) 145-893304-08-2025 Progress note Author Brenda Posadas [facility] Note Date/Time September 09, 2024 6:46 pm [facility] Medical Records Department [address] [place] [address] Progress Note - Hospitalist 09/09/24 1839 MR#: [id number] Acct: [id number] Name: TRENTON JACKSON Rep #:[id number] : 1970 54 From: Brenda Posadas MD PCP: RUTH Lawrence, NON LICENSED NUCLEAR PLANT OPERATOR-C Statu s:ADM REHAN Location: [place] [address] Reason for Visit Reason for Visit: Diagnoses [...] Clarity Clear, Urine pH 6.0, Ur Specific Metter 1.010, Urine Protein 30 H, Urine Glucose [...] % (Auto) 67.1, Lymph % (Auto) 23.9, [place] % (Auto) 5.5, Eos % (Auto) 2.3, [...] documentation, 40Minutes Charges/Coding Visit Charges Inpatient E&M: 41362 Subs Hosp L2 09/09/24 3935 <Electronically signed by Brenda Posadas MD> Cosigner Signature (if applicable): CC: ~ Signed [facility] [facility] Work Phone: 1(780) 313-824404-07-2025 Progress note Author Brenda Posadas [facility] Note Date/Time September 08, 2024 7:37 pm [facility] Medical Records Department [address] [place] [address] Progress Note - Hospitalist 09/08/24 1000 MR#: [id number] Acct: [id number] Name: TRENTON JACKSON Rep #:[id number] : 1970 54 From: Brenda Posadas MD PCP: RUTH Lawrence, NON LICENSED NUCLEAR PLANT OPERATOR-C Statu s:ADM REHAN Location: [place] [address] Reason for Visit Reason for Visit: Diagnoses [...] % (Auto) Cancelled, Lymph % (Auto) Cancelled, [place] % (Auto) Cancelled, Eos % (Auto) Cancelled, [...] Drop Cells Cancelled, Ovalocytes Cancelled, Stomatocytes Cancelled, Burris-Casey Bodies Cancelled, Hudson Cells Cancelled, Bite Cells Cancelled, Crenated Cell [...] 77.8 H, Lymph % (Auto) 14.5 L, [place] % (Auto) 5.0, Eos % (Auto) 1.7, [...] % (Auto) 64.6, Lymph % (Auto) 25.7, Plymouth% (Auto) 6.0, Eos % (Auto) 2.4, Baso [...] recommend MRI for further characterization. [facility] Physical Ex[facility] Narrative General: Resting comfortably but [...] documentation, 52Minutes Charges/Coding Visit Charges Inpatient E&M: 19587 Subs Hosp L3 09/08/24 1640 <Electronically signed [...] Cosigner Signature (if applicable): cc: ~* Signed [facility] Work Phone: 1(759) 131-628104-07-2025 History and physical note Author Rosaura Crane [facility] Note Date/Time September 07, 2024 10:0 0pm [facility] Medical Records Department [address] [place] [address] H&P Exam - Hospitalist 09/07/242133 MR#: [id number] Acct: [id number] Name: TRENTON JACKSON Rep #:[id number] : 1970 54 From: Rosaura Crane MD PCP: RUTH Lawrence, NON LICENSED NUCLEAR PLANT OPERATOR-C Statu s:ADM REHAN [facility] HPI - General General Date of [...] which resolved who re- presents to the [facility] ED on 09/07/24 with history of intractable [...] upon requested evaluation of patient. [facility] Medical History L5 vertebral fracture ESBL (extended [...] (congestive heart failure) CAD (coronary artery disease), jamul coronary artery Home Medications ?Medication ?Instructions ?Recorded [...] IN 1 - 2 pump subdermal Q6H NV N FOR 02/14/24 Unknown History saltsable FEET [...] % (Auto) Cancelled, Lymph % (Auto) Cancelled, [place] % (Auto) Cancelled, Eos % (Auto) Cancelled, [...] Drop Cells Cancelled, Ovalocytes Cancelled, Stomatocytes Cancelled, Burris-Casey Bodies Cancelled, Lore Cells Cancelled, Bite Cells [...] 77.8 H, Lymph % (Auto) 14.5 L, Plymouth % (Auto) 5.0, Eos % (Auto) 1.7, [...] recommend MRI for further characterization. Reading [facility] Assessment & Plan Assessment/Plan (1) Intractable nausea [...] which resolved who re- presents to the [facility] ED on 09/07/24 with history of intractable [...] 16 minutes. Charges/Coding Visit Charges Inpatient E&M: 91578 Init Hosp L3 Procedures Hospitalists Procedures: 68674 Advncd Care Plan 30 Min 09/07/24 2200 <Electronically signed by Rosaura Crane MD> Cosigner Signature (if applicable): CC: VSC NON LICENSED NUCLEAR PLANT OPERATOR-C Zohreh Mckeon; Dr. Rosaura Crane MD~ Signed [facility] Work Phone: 1(957) 512-645104-06-2025 Discharge summary Author Davis Ibarra [facility] Note Date/Time September 07, 2024 9:32 pm [facility] Medical Records Department [address] [place] [address] Emergency Department Summary 09/07/24 MR#: [id number] Acct: [id number] Name: TRENTON JACKSON Rep #:[id number] : 1970 54 From: Davis Gibson PCP: RUTH Lawrence, NON LICENSED NUCLEAR PLANT OPERATORBrian Statu s:REG ER Location: ED HPI History of Present Illness Chief Complaint: Nausea/Vomiting PFSH [facility] Medical History L5 vertebral fracture ESBL (extended [...] (congestive heart failure) CAD (coronary artery disease), jamul coronary artery Home Medications ?Medication ?Instructions ?Recorded [...] IN 1 - 2 pump subdermal Q6H NV N FOR 02/14/24 Unknown History saltsable FEET [...] reviewed, Vital signs reviewed Constitutional: please see [facility] HENT: MMM Eyes: Pupils equal round and [...] History obtained from others: none Consults: none [facility] Narrative: The patient was initially tachycardic, tachypneic [...] PCU oBS This note was generated with Codility dictation software. It may contain incorrectwords, spelling, [...] H Lymph % (Auto) Cancelled 14.5 L [place] % (Auto) Cancelled 5.0 Eos % (Auto) [...] Drop Cells Cancelled Ovalocytes Cancelled Stomatocytes Cancelled Burris-Casey Bodies Cancelled Lore Cells Cancelled Bite Cells [...] recommend MRI for further characterization. Reading [facility] Discharge Plan Triage Chief Complaint: Nausea/Vomiting ED [...] Care Provider: Zohreh Mckeon Referrals: Zohreh Mckeon, NON LICENSED NUCLEAR PLANT OPERATORBrian [Primary Care Provider] - Print Language: Citizen Of [place] What to do if you have Problems For any increased pain, shortness of breath, bleeding, nausea or vomiting, chestpain, or any unexpected problems, contact your Primary Care Provider. Call [facility] ([phone]) or report to the closest Emergency Room. Call 911 if necessary. 09/07/242131 <Electronically signed by Davis Ibarra DO> Cosigner Signature (if applicable): CC: RUTH Mckeon ~ Signed [facility] Work Phone: 1(718) 744-786804-06-2025 Radiology Diagnostic study [facility]04-06-2025 Discharge summary Author Davis Ibarra [facility] Note Date/Time September 07, 2024 9:32 pm [facility] Medical Records Department [address] [place] [address] Emergency Department Summary 09/07/24 MR#: [id number] Acct: [id number] Name: TRENTON JACKSON Rep #:[id number] : 1970 54 From: Davis Gibson PCP: RUTH Lawrence, NON LICENSED NUCLEAR PLANT OPERATORBrian Statu s:REG ER Location: ED HPI History of Present Illness Chief Complaint: Nausea/Vomiting [facility] Medical History L5 vertebral fracture ESBL [...] (congestive heart failure) CAD (coronary artery disease), jamul coronary artery Home Medications ?Medication ?Instructions ?Recorded [...] IN 1 - 2 pump subdermal Q6H NV N FOR 02/14/24 Unknown History saltsable FEET [...] History obtained from others: none Consults: none [facility] Narrative: The patient was initially tachycardic, tachypneic [...] PCU oBS This note was generated with Codility dictation software. It may contain incorrectwords, spelling, [...] H Lymph % (Auto) Cancelled 14.5 L [place] % (Auto) Cancelled 5.0 Eos % (Auto) [...] Drop Cells Cancelled Ovalocytes Cancelled Stomatocytes Cancelled Burris-Casey Bodies Cancelled Lore Cells Cancelled Bite Cells [...] recommend MRI for further characterization. Reading [facility] Discharge Plan Triage Chief Complaint: Nausea/Vomiting ED [...] Care Provider: Zohreh Mckeon Referrals: Zohreh Mckeon, NON LICENSED NUCLEAR PLANT OPERATOR-C [Primary Care Provider] - Print Language: Citizen Of [place] What to do if you have Problems For any increased pain, shortness of breath, bleeding, nausea or vomiting, chestpain, or any unexpected problems, contact your Primary Care Provider. Call [facility] ([phone]) or report to the closest Emergency Room. Call 911 if necessary. 09/07/242131 <Electronically signed by Davis Ibarra DO> Cosigner Signature (if applicable): CC: RUTH NON LICENSED NUCLEAR PLANT OPERATOR-C Zohreh Mckeon ~ Signed [facility] Work Phone: 1(306) 758-118804-04-2025 Discharge summary Author Zack Card [facility] Note Date/Time September 05, 2024 3:35 pm [facility] Medical Records Department [address] [place] [address] Emergency Department Summary 09/05/24 MR#: [id number] Acct: [id number] Name: TRENTON JACKSON Rep #:[id number] : 1970 54 From: Zack Han PCP: RUTH Lawrence, NON LICENSED NUCLEAR PLANT OPERATOR-C Statu s:REG ER Location: ED HPI History [...] to latex. History of cholecystectomy and appendectomy. [facility] Medical History L5 vertebral fracture ESBL [...] (congestive heart failure) CAD (coronary artery disease), jamul coronary artery Home Medications ?Medication ?Instructions ?Recorded [...] IN 1 - 2 pump subdermal Q6H NV N FOR 02/14/24 Unknown History saltsable FEET [...] I discussed her MRI review noting her L3-R3fdvrvsb disc. Discussed likely causing her radicular symptoms. [...] clinician: N/A This note was generated with Greysoxation software. It may contain incorrectwords, spelling, and [...] 79.7 H Lymph % (Auto) 14.1 L [place] % (Auto) 5.1 Eos % (Auto) 0.2 [...] 0RF Primary Care Provider: Zohreh Mckeon Referrals: Vel Swartz MD [Med Staff - Active Staff] - 1-2 Weeks Brandon Bean MD [Med Staff - Active Staff] - 3-5 Days Zohreh Mckeon, NON LICENSED NUCLEAR PLANT OPERATOR-C [Primary Care Provider] - Activity Restrictions/Additional Instructions: [...] your glucose with your insulin. Print Language: Citizen [place] Disposition Disposition: Home, Self Care What to do if you have Problems For any increased pain, shortness of breath, bleeding, nausea or vomiting, chestpain, or any unexpected problems, contact your Primary Care Provider. Call [facility] ([phone]) or report to the closest Emergency Room. Call 911 if necessary. 09/05/24 3669 <Electronically signed by Zack Han> Cosigner Signature (if applicable): CC: RUTH NON LICENSED NUCLEAR PLANT OPERATOR-C Zohreh Mckeon ~ Signed [facility] Work Phone: 1([phone]) 649-690504-01-2025 Consult note Author Haven Viramontes [facility] Note Date/Time September 02, 2024 2:33 pm [facility] Medical Records Department [address] [place] [address] Counseling Note - Pharmacy 09/02/24 1432 MR#: [id number] Acct: [id number] Name: TRENTON JACKSON Rep #:[id number] : 1970 54 From: Haven Viramontes PCP: RUTH Lawrence, NON LICENSED NUCLEAR PLANT OPERATOR-C Statu s:ADM IN Y Location: [place] [address] Pharmacy [facility] has performed discharge medication reconciliation and counseling for this patient. 1. ACETAMINOPHEN 1000MG PO Q8 2. OXYCODONE 5MG Q4H PRN PAIN - Do not take with [place] 3. STOP GABAPENTIN The patient's discharge medication [...] signed by Haven Viramontes> Date _ Haven Viramontes Cosigner Signature (if applicable): Date CC: ~ Signed [facility] Work Phone: 1(912) 922-879204-01-2025 Discharge summary Author Latricia Aaron [facility] Note Date/Time September 02, 2024 12:4 7pm [facility] Medical Records Department [facility] [place] [address] Discharge Summary 09/02/24 1232 MR#: [id number] Acct: [id number] Name: TRENTON JACKSON Rep #:[id number] : 1970 54 From: Latricia Aaron MD PCP: RUTH Lawrence, NON LICENSED NUCLEAR PLANT OPERATOR-C Statu s:ADM IN Location: [facility] HY342-4 Providers Date of Admission: 08/26/24 Date of Discharge: 09/02/24 Primary Care Physician: RUTH Lawrence, NON LICENSED NUCLEAR PLANT OPERATOR-C Consultations 08/26/24 20:30 Consult: Vascular Surgery Routine [...] Requested for PT OT eval and social work therapist to assist with discharge planning ? 09/02/2024 patient was denied transfer to long term facility by her insurance company since she [...] 80.7 H, Lymph % (Auto) 14.4 L, [place] % (Auto) 4.0, Eos % (Auto) 0.2, [...] Latricia Aaron Primary Care Provider: Zohreh Mckeon [facility] Consulting Providers: Brenda Posadas; Riccardo [...] 3XD Referrals / Follow Up: Zohreh Mckeon, NON LICENSED NUCLEAR PLANT OPERATOR-C [Primary Care Provider] - Within 1 Week Disposition Disposition (needs filled in before D/C Order can be placed): Home Health Service Charges/Coding Visit Charges Inpatient E&M: 47750 Disch Hosp >30min 09/02/24 1247 <Electronically signed by Latricia Aaron MD> Cosigner Signature (if applicable): CC: VSC NON LICENSED NUCLEAR PLANT OPERATOR-C Zohreh Mckeon; Dr. Latricia Aaron MD~ Signed [facility] Work Phone: 1([phone]) 539-557404-01-2025 [facility]04-01-2025 Progress note Author Latricia Aaron [facility] Note Date/Time September 02, 2024 9:14 am [facility] Medical Records Department [address] [place] [address] Progress Note - Hospitalist 09/02/24 0751 MR#: [id number] Acct: [id number] Name: TRENTON JACKSON Rep #:[id number] : 1970 54 From: Latricia Aaron MD PCP: Zohreh Mckeon, VSC, NON LICENSED NUCLEAR PLANT OPERATOR-C Statu s:ADM IN Location: [facility] UU823-5 Reason for Visit Reason for Visit: Diagnoses [...] 80.7 H, Lymph % (Auto) 14.4 L, [place] % (Auto) 4.0, Eos % (Auto) 0.2, [...] Requested for PT OT eval and social work therapist to assist with discharge planning 3. Peripheral [...] documentation, 36minutes Charges/Coding Visit Charges Inpatient E&M: 29756 Subs Hosp L2 09/02/24 0914 <Electronically signed by Latricia Aaron MD> Cosigner Signature (if applicable): CC: ~ Signed [facility] Work Phone: [phone]) 355-141903-31-2025 Progress note Author Latricia Aaron [facility] Note Date/Time September 01, 2024 12: 47pm [facility] Medical Records Department [address] [facility] [place] [address] Progress Note - Hospitalist 09/01/24 0819 MR#: [id number] Acct: [id number] Name: TRENTON JACKSON Rep #:[id number] : 1970 54 From: Latricia Aaron MD PCP: Zohreh Mckeon, RUTH, NON LICENSED NUCLEAR PLANT OPERATOR-C Statu s:ADM IN Location: [address] Reason for Visit Reason for Visit: Diagnoses [...] Requested for PT OT eval and social work therapist to assist with discharge planning 3. Peripheral [...] 38 minutes Charges/Coding Visit Charges Inpatient E&M: 81988 Subs Hosp L2 09/01/24 1247 <Electronically signed by Latricia Aaron MD> Cosigner Signature (if applicable): CC: ~ Signed [facility] Work Phone: 1(690) [phone] Progress note Author Nicole Trujillo [facility] Note Date/Time August 31, 2024 2:1 2pm [facility] Medical Records Department [address] [place] [address] Progress Note - Hospitalist 08/31/24 0854 MR#: [id number] Acct: [id number] Name: TRENTON JACKSON Rep #:[id number] : 1970 54 From: Nicole Trujillo DO PCP: RUTH Lawrence, NON LICENSED NUCLEAR PLANT OPERATOR-C Statu s:ADM IN Location: [place]3 DA961-0 Reason for Visit Reason for Visit: Left [...] for tomorrow Charges/Coding Visit Charges Inpatient E&M: 91160 Subs Hosp L1 08/31/24 1412 <Electronically signed by Nicole Trujillo DO> Cosigner Signature (if applicable): CC: ~ Signed [facility] Work Phone: [phone]) [phone] Progress note Author Nicole Trujillo [facility] Note Date/Time August 30, 2024 3:3 1pm [facility] Medical Records Department [address] [place] [address] Progress Note - Hospitalist 08/30/24 1528 MR#: [id number] Acct: [id number] Name: TRENTON JACKSON Rep #:[id number] : 1970 54 From: Nicole Trujillo DO PCP: RUTH Lawrence, NON LICENSED NUCLEAR PLANT OPERATOR-C Statu s:ADM IN Location: [place] [address] Reason for Visit Reason for Visit: Left [...] awaiting pre-CERT. Charges/Coding Visit Charges Inpatient E&M: 77219 Subs Hosp L1 08/30/24 1531 <Electronically signed by Nicole Trujillo DO> Cosigner Signature (if applicable): CC: ~ Signed [facility] Work Phone: [phone]) 525-852303-28-2025 Progress note Author Nicole Trujillo [facility] Note Date/Time August 29, 2024 5:0 3pm [facility] Medical Records Department [address] [place] [address] Progress Note - Hospitalist 08/29/24 1647 MR#: [id number] Acct: [id number] Name: TRENTON JACKSON Rep #:[id number] : 1970 54 From: Nicole Trujillo DO PCP: RUTH Lawrence, NON LICENSED NUCLEAR PLANT OPERATOR-C Statu s:ADM IN Location: [place] [address] Reason for Visit Reason for Visit: Left leg pain Subjective Subjective Patient currently sitting up in bed watching television, appears comfortable, nontoxic, not complaining of any significant pain or nausea or vomiting at this time. Objective Data Objective Data Vital Signs: Vital Signs Temp Pulse Resp BP Pulse Ox O2 Del Method 98.0 F 91 16 122/68 H 98 Room Air 08/29/24 14:33 08/29/24 16:45 08/29/24 14:33 08/29/24 16:45 [...] % (Auto) 64.7, Lymph % (Auto) 24.4, [place]% (Auto) 7.6, Eos % (Auto) 2.4, Baso [...] awaiting pre-CERT. Charges/Coding Visit Charges Inpatient E&M: 83611 Subs Hosp L1 08/29/24 1703 <Electronically signed by Nicole Trujillo DO> Cosigner Signature (if applicable): CC: ~ Signed [facility] Work Phone: 1([phone]) 358-372203-28-2025 Discharge summary Author Nicole Trujillo [facility] Note Date/Time August 29, 2024 9:5 0am [facility] Medical Records Department [address] [place] [address] Transfer to [facility] MR#: [id number] Acct: [id number] Name: TRENTON JACKSON Rep #:[id number] : 1970 54 From: Nicole Trujillo DO PCP: RUTH Lawrence, NON LICENSED NUCLEAR PLANT OPERATOR-C Statu s:ADM IN Certification of patient admission REQUIRED AT TIME OF ADMISSION. I CERTIFY THAT POST-HOSPITAL ECF SERVICES ARE REQUIRED TO BE GIVEN ON AN IN-PATIENT BASIS BECAUSE OF THE ABOVE NAMED PATIENT'S NEED FOR SENIOR LIVING CARE ON A CONTINUING BASIS FOR THE CONDITION(S) FOR WHICH HE/SHE WAS RECEIVING IN-PATIENT HOSPITAL SERVICES PRIOR TO HIS/HER TRANSFER TO THE F. 08/29/24 0950<Electronically signed by Nicole Trujillo DO> Diet Diet [...] Nicole Trujillo Primary Care Provider: Zohreh Mckeon [facility] Consulting Providers: Brenda Posadas; Riccardo [...] 0RF Referrals / Follow Up: Zohreh Mckeon, NON LICENSED NUCLEAR PLANT OPERATOR-C [Primary Care Provider] - 08/29/24 0950 <Electronically signed by Nicole Trujillo DO> Cosigner Signature (if applicable): CC: VSC NON LICENSED NUCLEAR PLANT OPERATOR-C Zohreh Mckeon; Dr. Riccardo Ng MD; Dr. Brenda Posadas MD ~ [facility] Work Phone: [phone]) [phone] Progress note Author Nicole Trujillo [facility] Note Date/Time August 28, 2024 6:0 1pm [facility] Medical Records Department [address] [place] [address] Progress Note - Hospitalist 08/28/24 1026 MR#: [id number] Acct: [id number] Name: TRENTON JACKSON Rep #:[id number] : 1970 54 From: Nicole Trujillo DO PCP: Zohreh Mckeon Gideon, NON LICENSED NUCLEAR PLANT OPERATOR-C Statu s:ADM IN Location: MS3 VK456-3 Reason for Visit Reason for Visit: Left [...] 08/28/24 15:25 08/28/24 15:25 08/28/24 15:25 08/28/24 15:08/28/24 15:25 Oxygen Delivery Method Room Air Weight: [...] % (Auto) 66.7, Lymph % (Auto) 22.7, [place]% (Auto) 6.7, Eos % (Auto) 3.0, Baso [...] age, lying in bed dozing off watching Karlos Doo, appears comfortable, nontoxic HEENT head/scalp atraumatic [...] -Full code Charges/Coding Visit Charges Inpatient E&M: 04760 Subs Hosp L2 08/28/24 1801 <Electronically signed by Nicole Trujillo DO> Cosigner Signature (if applicable): CC: ~ Signed [facility] Work Phone: 1(124) [phone] Progress note Author Nicole Trujillo [facility] Note Date/Time August 27, 2024 2:5 8pm [facility] Medical Records Department [address] [place] [address] Progress Note - Hospitalist 08/27/24 0725 MR#: [id number] Acct: [id number] Name: TRENTON JACKSON Rep #:[id number] : 1970 54 From: Nicole Trujillo DO PCP: RUTH Lawrence, NON LICENSED NUCLEAR PLANT OPERATOR-C Statu s:ADM IN Location: ICU CVICU20 2-1 Reason for Visit Reason for Visit: Left leg pain Subjective Subjective Patient is a 54-year-old white female with multiple comorbidities and complianceissues who presented to the emergency department at [facility] on 08/26/2024 with a chief complaint [...] % (Auto) 69.6, Lymph % (Auto) 20.9, [place] % (Auto) 5.7, Eos % (Auto) 2.8, [...] (Auto) 72.4 H, Lymph % (Auto) 20.6, [place] % (Auto) 4.4, Eos % (Auto) 1.6, [...] IMPRESSION: No acute cardiopulmonary process. Reading Location: [facility] Venous Doppler Study 08/26/24 10:40 Interpretation Summary Deep veins of the left lower extremity are patent and compressible segmentally. There is no evidence of left lower extremity deep vein thrombosis. The left great saphenous vein appears patent andcompressible segmentally. Incidental finding, right SFA stent occlusion Ordering Physician: Jeison Abrams Referring Physician: Nathaly Leonard Performed By: Héctor Ayoub, RVT Lower Extremity CTA 08/26/24 14:00 IMPRESSION: Technically limited study as described. Severe multilevel disease as described level by level above. Interventional radiology consultation may be appropriate. Reading Location: [place] [address] Physical Exam Const alert, oriented x3 and [...] -Full code Charges/Coding Visit Charges Inpatient E&M: 03640 Subs Hosp L2 08/27/24 1458 <Electronically signed by Nicole Trujillo DO> Cosigner Signature (if applicable): CC: ~ Signed [facility] Work Phone: [phone]) [phone] Consult note Author Riccardo Ng [facility] Note Date/Time August 27, 2024 7:3 3am [facility] Medical Records Department [address] [place] [address] Consultation - Surgical 08/27/24 0705 MR#: [id number] Acct: [id number] Name: TRENTON JACKSON Rep #:[id number] : 1970 54 From: Riccardo Ng MD PCP: Zohreh Mckeon, RUTH, NON LICENSED NUCLEAR PLANT OPERATOR-C Statu s:ADM IN Location: ICU CVICU20 2-1 [...] minimal relief with pain medications. [facility] Medical History ESBL (extended spectrum beta-lactamase) producing [...] (congestive heart failure) CAD (coronary artery disease), jamul coronary artery Home Medications ?Medication ?Instructions ?Recorded [...] IN 1 - 2 pump subdermal Q6H NV N FOR 02/14/24 Unknown History saltsable FEET [...] % (Auto) 69.6, Lymph % (Auto) 20.9, [place] % (Auto) 5.7, Eos % (Auto) 2.8, [...] (Auto) 72.4 H, Lymph % (Auto) 20.6, [place] % (Auto) 4.4, Eos % (Auto) 1.6, [...] IMPRESSION: No acute cardiopulmonary process. Reading Location: [facility] Venous Doppler Study 08/26/24 10:40 Interpretation Summary Deep veins of the left lower extremity are patent and compressible segmentally. There is no evidence of left lower extremity deep vein thrombosis. The left great saphenous vein appears patent andcompressible segmentally. Incidental finding, right SFA stent occlusion Ordering Physician: Jeison Abrams Referring Physician: [facility] Performed By: Héctor Ayoub, T Lower Extremity CTA 08/26/24 14:00 IMPRESSION: Technically limited study as described. Severe multilevel disease as described level by level above. Interventional radiology consultation may be appropriate. Reading Location: [facility] Charges/Coding Visit Charges Inpatient E&M: 44090 Init Hosp L3 08/27/24 0733 <Electronically signed by Riccardo Ng MD> Cosigner Signature (if applicable): CC: RUTH Mckeon~ Signed [facility] Work Phone: 1(960) [phone] Discharge summary Author Jeison Abrams [facility] Note Date/Time August 27, 2024 7:0 7am [facility] Medical Records Department [address] [place] [address] Emergency Department Summary 08/26/24 MR#: [id number] Acct: [id number] Name: TRENTON JACKSON Rep #:[id number] : 1970 54 From: Jeison Gibson PCP: RUTH Lawrence, NON LICENSED NUCLEAR PLANT OPERATOR-C Statu s:ADM IN Location: ICU CVICU20 2-1 [...] states she has heart problems. [facility] <Dr. Jeison Abrams DO - Last Filed: 08/26/24 15:33> [facility] Medical History ESBL (extended spectrum beta-lactamase) producing [...] (congestive heart failure) CAD (coronary artery disease), jamul coronary artery Home Medications ?Medication ?Instructions ?Recorded [...] IN 1 - 2 pump subdermal Q6H NV N FOR 02/14/24 Unknown History saltsable FEET [...] 89 Pulse Ox 97 Oxygen Delivery Method MDM <Dr. Jeison Abrams, DO - Last Filed: 08/26/24 15:33> [facility] Narrative Medical decision making narrative: [...] % (Auto) 69.6 Lymph % (Auto) 20.9 [place] % (Auto) 5.7 Eos % (Auto) 2.8 [...] IMPRESSION: No acute cardiopulmonary process. Reading Location: [facility] Venous Doppler Study 08/26/24 10:40 Interpretation Summary Deep veins of the left lower extremity are patent and compressible segmentally. There is no evidence of left lower extremity deep vein thrombosis. The left great saphenous vein appears patent andcompressible segmentally. Incidental finding, right SFA stent occlusion Ordering Physician: Jeison Abrams Referring Physician: Nathaly Lainez [facility] Performed By: Héctor Ayoub RVT Lower Extremity CTA 08/26/24 14:00 IMPRESSION: Technically limited study as described. Severe multilevel disease as described level by level above. Interventional radiology consultation may be appropriate. Reading Location: [facility] <Dr. Vaughn Daugherty, DO - Last Filed: 08/27/24 03:29> [facility] Narrative Medical decision making narrative: [...] % (Auto) 69.6 Lymph % (Auto) 20.9 [place] % (Auto) 5.7 Eos % (Auto) 2.8 [...] IMPRESSION: No acute cardiopulmonary process. Reading Location: [facility] Venous Doppler Study 08/26/24 10:40 Interpretation Summary [...] may be appropriate. Reading Location: [place] [address] Discharge Plan Disposition Disposition: Acute Care Hospital [facility] Discharge Date/Time: 08/26/24 20:14 What to do if you have Problems For any increased pain, shortness of breath, bleeding, nausea or vomiting, chestpain, or any unexpected problems, contact your Primary Care Provider. Call [facility] ([phone]) or report to the closest Emergency Room. Call 911 if necessary. 08/27/24 0707 <Electronically signed by Jeison Abrams DO> Cosigner Signature (if applicable): 08/27/24 0329 <Electronically signed by Vaughn Daugherty DO> CC: RUTH NON LICENSED NUCLEAR PLANT OPERATORBrian Mckeon ~ Signed [facility] Work Phone: 1(506) 320-484603-25-2025 History and physical note Author Brenda Posadas [facility] Note Date/Time August 26, 2024 8:1 8pm [facility] Medical Records Department [address] [place] [address] H&P Exam - Hospitalist 08/26/242002 MR#: [id number] Acct: [id number] Name: TRENTON JACKSON Rep #:[id number] : 1970 54 From: Brenda Posadas MD PCP: Zohreh Mckeon Gideon, NON LICENSED NUCLEAR PLANT OPERATOR-C Statu s:ADM IN Location: ICU CVICU20 2-1 HPI - General General Date of Admission: 08/26/24 Date of Service: 08/26/24 Chief Complaint: Left lower extremity pain HPI Narrative TRENTON JACKSON, is a 54-year-old female with history of coronary artery disease, combined heart failure, hypertension, diabetes presented to [facility] ED 08/26/2024 due to pain and [...] not sure what is what [facility] Medical History ESBL (extended spectrum beta-lactamase) producing [...] (congestive heart failure) CAD (coronary artery disease), jamul coronary artery Home Medications ?Medication ?Instructions ?Recorded [...] IN 1 - 2 pump subdermal Q6H NV N FOR 02/14/24 Unknown History saltsable FEET [...] % (Auto) 69.6, Lymph % (Auto) 20.9, [place] % (Auto) 5.7, Eos % (Auto) 2.8, [...] IMPRESSION: No acute cardiopulmonary process. Reading Location: [facility] Venous Doppler Study 08/26/24 10:40 Interpretation Summary Deep veins of the left lower extremity are patent and compressible segmentally. There is no evidence of left lower extremity deep vein thrombosis. The left great saphenous vein appears patent andcompressible segmentally. Incidental finding, right SFA stent occlusion Ordering Physician: Jeison Abrams Referring Physician: Nathaly Leonard Performed By: Héctor Ayoub RVT Lower Extremity CTA 08/26/24 14:00 IMPRESSION: Technically limited study as described. Severe multilevel disease as described level by level above. Interventional radiology consultation may be appropriate. Reading Location: [facility] Assessment & Plan Assessment/Plan (1) Acute pain [...] 76 Minutes Charges/Coding Visit Charges Inpatient E&M: 71011 Init Hosp L3 08/26/242017 <Electronically signed by Brenda Posadas MD> Cosigner Signature (if applicable): CC: [facility] NON LICENSED NUCLEAR PLANT OPERATOR-C Zohreh Mckeon; Dr. Brenda Posadas MD~ Signed [facility] Work Phone: 1(620) 603-107903-25-2025 Evaluation note* Diagnosis Onset Date Resolution Status [...] vomiting reso lved September 09, 2024 7:01pm [facility] Work Phone: 1(451) 720-965503-25-2025 Radiology Diagnostic study [facility]03-25-2025 Radiology Diagnostic study [facility]01-30-2025 [facility]01-26-2025 Evaluation note* Diagnosis Onset Date Resolution [...] diabetes mellitus acute August 26, 2024 8:03pm [facility] Work Phone: 1(347) 484-271501-26-2025 Evaluation note* Diagnosis Onset Date Resolution Status [...] and vomiting acute September 07, 2024 9:35pm [facility] Work Phone: 1([phone]) 907-899501-26-2025 Evaluation note* Diagnosis Onset Date Resolution Status [...] and vomiting acute September 09, 2024 7:01pm [facility] Work Phone: 1(716) 633-145301-26-2025 Evaluation note* Diagnosis Onset Date Resolution Status [...] and vomiting resolved September 09, 2024 7:01pm [facility] Work Phone: 1(319) 742-768712-21-2024 Hospital Discharge instructions Patient Education 05/23/2024 23:02:36 [...] for heart disease or after a stroke) Urkf-jvn-eqxrgwc medicines for diarrhea, nausea, and vomiting are generally OK unless you have bleeding, fever, or severe abdominal pain. General care If symptoms are severe, rest at home for the next 24 hours, or until you are feeling better. Washing your hands with soap and water, or using alcohol-based hand sfdc architect is the best way to stop the [...] after. Wash your hands or use alcohol-based sfdc architect after using cutting boards, countertops, and knives that have been in contact with raw food. Dry your hands with a single use towel. Keep uncooked meats away from cooked and elqlm-dh-ppr foods. Follow-up care Follow up with your [...] every 6 hours), or very dark urine 1233-3359 [employer]. [address] [place] [address], [place] [address]. All rights reserved. This information is not intended as a substitute for professional medical care. Always follow yourhealthcare professional's instructions. Follow Up Care 05/23/2024 19:13:17 With:BRITTANEY PEARSON MD Address: [address] [place] [address] [id number]- When:2-4 days [facility] 12-20-2024 Note Discharge Instructions Thank you for allowing [facility] to assist you with your healthcare needs. The following is importantdischarge information regarding your hospital visit. Diagnosis from Today's Visit Vomiting What to Do Next Instructions from Your Care Team No qualifying data available. Post Acute Orders No qualifying data available. You Need to Schedule the Following Appointments Follow Up with BRITTANEY PEARSON MD When:Within 2-4 days Where:[address] [place] [address]- Allergies Latex Medications Please ask your primary [...] for heart disease or after a stroke) Ospo-nda-ticypik medicines for diarrhea, nausea, and vomiting are generally OK unless you have bleeding, fever, or severe abdominal pain. General care If symptoms are severe, rest at home for the next 24 hours, or until you are feeling better. Washing your hands with soap and water, or using alcohol-based hand sfdc architect is the best way to stop the [...] after. Wash your hands or use alcohol-based sfdc architect after using cutting boards, countertops, and knives that have been in contact with raw food. Dry your hands with a single use towel. Keep uncooked meats away from cooked and omxkt-db-bxg foods. Follow-up care Follow up with your [...] every 6 hours), or very dark urine 3080-3317 [employer]. [address] [place] [address]. All rights reserved. This information is not intended as a substitute for professional medical care. Always follow yourhealthcare professional's instructions. Additional Information VACCINATE! IT SAVES LIVES! Members of the community who have not yet received the COVID-19 vaccine and would like to receive it can visit one of [facility] vaccine clinics. There are many vaccine clinic locations within the [facility]. For locations and available times, please visit www.gettheshot.coronavirus.[place].gov/. It is important to note that some COVID mobile vaccine clinics are held outdoors and may be canceled in rainy or stormy conditions. To learn more about pediatric vaccinations (ages 5-11), we invite you to visit the [facility] webpage. https://www.[facility].org/pages/6784-Eybcn-Lioievkapwd-Qizvmqwdte-Lmpyo-Xnc stions.htmlTo learn more about the COVID-19 vaccine, we invite you to visit the CDC website for a list of frequently asked questions. https://www.cdc.gov/coronavirus/2019-ncov/vaccines/faq.html [facility] Patient Portal Access Instructions: Stay connected with your healthcare team and access your personal medical information anytime with the [facility] Patient Portal. If you would like a full copy of your medical records please contact the [facility] Medical Records Department Sunday through Sunday between 8a.m. and 4:30p.m. Please follow the directions below to access the portal: 1.Access the email account you provided upon registration to the [facility].2.Look for an invitation email from [facility].3.Open the email and access the invitation link: Accept Invitation to [facility]4.Fill in the required stephens to create your account. Sign into [email or web address] with your username and password that you [...] you will allow to register on the [facility] Patient Portal for access to your information. You can also access the [facility] Patient Portal on the [employer]. Simply click on Health Records under [employer] and then click on the [facility] logo. [...] Call your local pharmacy or go to http://bit.Openplay/6L1Dy2e to find one close to you.3.Make use of household items: Use cat litter or old coffee grounds to dispose medications if other options arenot available. Mix your drugs with these household products, seal them in an airtight container andthrow it into the garbage. Call [facility]: [phone] to be sure your drugs can be [...] been reviewed and explained to me and I,Sue JACKSONd my current condition and have read and understand these discharge instructions. I have received a written copy of the plan/instructions. If I have questions, I am aware that I should contact my doctor. 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 Signature: Date/Time: Relationship to Patient: Witness Name/Signature: Date/Time: [facility]12-20-2024 Note* Exam Date Time Procedure Performing Provider Status 05/23/24 7:51 PM EKG [ED AO] - CV RAYMUNDO VIEIRA DO; Auth (Verified) ECG Final Report Sinus rhythm Incomplete left bundle branch block Left ventricular hypertrophy Anterior Q waves, possibly due to LVH Electronic Signature: RAYMUNDO VIEIRA DO 05/23/2024 20:06:14 [facility]11-26-2024 [facility] 04-25-2024 Evaluation note* Diagnosis Onset Date Resolution Status Admit Date Chronic pain resolved April 3:52pm Dehydration resolved April 3:52pm Hyperglycemia resolved April 252023 3:52pm Hyponatremia resolved April 3:52pm Leukocytosis resolved April 3:52pm Nausea vomiting and diarrhea resolve d April 25, 2024 3:52pm Tachycardia resolved April 3:52pm Candidiasis of breast inactive [facility] 2023 3:52pm Colitis inactive April 25, 2024 3:52pm Debility inactive April 25, 2024 3:52pm Generalized weakness inactive [facility] 2023 3:52pm UTI (urinary tract infection) acute June 29, 2024 8:31pm Colitis deleted June 29, 2024 8:31pm Dehydration resolved June 29, 2024 8:31pm Sepsis due to gram-negative UTI deleted June 29 8:31pm [facility] Work Phone: 1(553) 848-833106-18-2024 Telephone encounter Note* Telephone Encounter - Stephanie De La Cruz - 11/20/2023 8:48 AM EDT The patient was discharged from [facility] 10-20-23 with an order to schedule with the Heart Failure Clinic. The Clinic reached out to the patient with no response. Therefore, this is considered a deferral of the Clinic's services at this time. [facility]06-18-2024 Miscellaneous Notes* Telephone Encounter - Stephanie De La Cruz - 11/20/2023 8:48 AM EDT The patient was discharged from [facility] 10-20-23 with an order to schedule with the Heart Failure Clinic. The Clinic reached out to the patient with no response. Therefore, this is considered a deferral of the Clinic's services at this time. documented in this encounterOhio[facility]-20-2024 Telephone encounter Note * Telephone Encounter - Stephanie De La Cruz - 10/22/2023 9:35 AM EDT Patient was discharged from [facility] 10-20-23 with an order to schedule with the Heart Failure Clinic. However, the patient was then immediately admitted to a long term facility. A letter was mailedto the patient asking them to contact the Clinic upon discharge from the facility. [facility]05-20-2024 Miscellaneous Notes* Telephone Encounter - Stephanie De La Cruz - 10/22/2023 9:35 AM EDT Patient was discharged from [facility] 10-20-23 with an order to schedule with the Heart Failure Clinic. However, the patient was then immediately admitted to a long term facility. A letter was mailedto the patient asking them to contact the Clinic upon discharge from the facility. documented in this encounterOhiohealth [facility]05-17-2024 NoteHNO ID: [id number] Author: MICHAEL NGUYỄN LSW Service: Care Management Author Type: Edging Machine Feeder Type: Care Mgt Progress Note Filed: 10/19/2023 14:54 Note Text: CARE MANAGEMENT DISCHARGE NOTE SERVICE DATE: October 19, 2023 SERVICE TIME: 1:56 PM Admission Date: 10/18/2023 LOS: 0 days Discharge Arrangement Discharge Arrangement: Nursing Home Facility Was an expedited discharge program used?: No Services Arranged Return to SNF Provider Name: [facility] Caregiver Assessment Caregiver is ready, willing and able to meet the patient's needs as recommended by the inter-professional team: No Caregiver needed Transportation Arrangements Transportation Arrangements: Ambulance Transportation Agency and Phone #:: [facility] ( [facility] ) [phone] / [phone] Date of Trip: 10/19/23 Time of Trip: 0800 Type of Service: BLS Non-emergency Is Patient Medicaid Pending?: No Was transportation financial coverage discussed with family?: Patient Screen Tacker Location: [facility] Destination: [facility] Handoff Communication: Handoff to: Primary Care Physician Primary Care Physician Name/Phone: Nathaly Leonard, Nathaly Leonard Additional Information: The facility in [place] [facility] [place] they can accept the patient [...] ED to Hosp-Admission (Current) from 10/18/2023 in [facility] Nursing Home Facility Agency [facility] SIGNATURE: SANDRA Kennedy PATIENT NAME: Trenton Jackson DATE: October 19, 2023 TIME: 1:56 PM CONTACT #: [phone] Note HNO ID: [id number] Author: MICHAEL NGUYỄN LSW Service: Care Management Author Type: Edging Machine Feeder Type: Care Mgt Initial Assessment Filed: 10/19/2023 15:16 Note Text: CARE MANAGEMENT: ASSESSMENT AND DISCHARGE PLAN SERVICE DATE: October 19, 2023 SERVICE TIME: 1:00 PM PCP: Nathaly Leonard Primary Contact: Extended Emergency Contact Information Primary Emergency Contact: Curry Jackson Jr Address: [address] [place] [address] [facility] Mobile Relation: Spouse Secondary Emergency Contact: Rebecca Dueñas Address: [place] [address] [facility] Relation: Mother Admission Status: Observation Insurance Provider: [facility] MEDICAID Discharge Planning requested by: Per Department Practice Potential Transition Plans Nursing Home Facility/Intermediate Care Facility Advance Directives Current Advance Directive: None Election Supervisor Attempted to Assist with AD Completion: Yes [...] Be able to go home, General wellness [place] Explained: [place] Given: Yes Level of Care Discussed: Nursing Home Facility Are you interested in bedside delivery of your medications? No Discharge Planning Participant(s): Patient Patient/Family Comments: Caregiver Assessment: Caregiver is ready, willing and able to meet the patient's needs as recommended by the inter-professional team: No Caregiver needed Transport at Discharge: Transportation Arrangements: Ambulance Transportation Agency and Phone #:: [facility] ( [facility] ) [phone] / [phone] Date of Trip: 10/19/23 Time of Trip: 0800 Type of Service: BLS Non-emergency Is Patient Medicaid Pending?: No Was transportation financial coverage discussed with family?: Patient Screen Tacker Location: [facility] Destination: [facility] Needs Prior to Discharge: Needs Prior [...] her hospital bed. Support: Rebecca Dueñas (mother) [phone] and Curry Jackson Jr (Spouse) [phone] Pharmacy: [facility] [address] [place] [id number] PCP: Nathaly Leonard, Nathaly Leonard The patient was at [facility] 09-02-23 till 09-08-23 after fall and found to have Closed displaced intertrochanteric fracture of right femur. Ortho did surgery and the patient went to [facility]. The patient reports she wants [...] 19, 2023 TIME: 2:59 PM CONTACT #: [phone] Telephone encounter Note* Telephone Encounter - Ethel Alonso - 10/18/2023 3:00 PM EDT Spoke to Cindi - she is going [facility] to arrange for transport. She did state that sometimes they can garbage pick up man in 15 minutes but sometimes it can take hours. Cindi does have direct phone # and knows I am in office until 530pm should she need to reach the office, after that to call the main office phone #. Also verified [facility] ED address. Thank you Ethel Shah [facility]05-16-2024 Miscellaneous Notes* Telephone Encounter - Ethel Alonso - 10/18/2023 3:00 PM EDT Spoke to Cindi - she is going to contact [facility] to arrange for transport. She did state that sometimes they can garbage pick up man in 15 minutes but sometimes it can take hours. Cindi does have direct phone # and knows I am in office until 530pm should she need to reach the office, after that to call the main office phone #. Also verified [facility] ED address. Thank you Ethel Shah * Telephone Encounter - Ethel Alonso - 10/18/2023 10:41 AM EDT Returned Sara's call from [facility] regarding Trenton - last nurse we spoke to (Bryant), they were to take patient to [place] ED and follow up with local ortho md. Called and spoke to Cindi - when order was given to Bryant in regards to giving an antibiotic & taking to [place] ED for surgical consult if no improvement - there was no follow through on that end. The jail physician did give an antibiotic 09/27/23 - 10/04/23 and nothing was done after that until Cindi saw Trenton on 10/15/23 & sent her to [place] ED. The ED gave her pain medication [...] May for review Thank you Ethel Dave Rosholt Ppg documented in this encounterOhiohealth [facility]05-16-2024 Telephone encounter Note * Telephone Encounter - Ethel Alonso - 10/18/2023 10:41 AM EDT Returned Sara's call from [facility] regarding Trenton - last nurse we spoke to (Bryant), they were to take patient to [place] ED and follow up with local ortho md. Called and spoke to Cindi - when order was given to Bryant in regards to giving an antibiotic & taking to [place] ED for surgical consult if no improvement - there was no follow through on that end. The jail physician did give an antibiotic 09/27/23 - 10/04/23 and nothing was done after that until Cindi saw Trenton on 10/15/23 & sent her to [place] ED. The ED gave her pain medication [...] May for review Thank you Ethel Dave Resist Coater Developer Alyssa [facility]05-15-2024 Telephone encounter Note* Telephone Encounter - Ethel Alonso - 10/17/2023 4:43 PM EDT Left 2 messages [facility]05-15-2024 Miscellaneous Notes* Telephone Encounter - Ethel [...] calling if other than patient: Bryant @ [facility] Return call to if other than patient: same Best contact number: [phone] Thank you, Pauly Heredia October 09, 2023 9:46 AM documented in this encounterOhiohealth [facility] Hospital05-13-2024 Discharge summary Author Jeremiah Rawls [facility] October 15, 2023 5:33pm Note Date/Time October 15, 2023 4:51p m [facility] Medical Records Department [address] [place] [address] Emergency Department Summary 10/15/23 MR#: [id number] Acct: [id number] Name: TRENTON JACKSON Rep #:[id number] : 1970 53 From: Jeremiah Rawls MD PCP: [facility] atus:[facility] Location: ED HPI History of Present Illness Chief Complaint: Lower Extremity Injury Narrative Narrative: 53-year-old female past medical history of right hip arthroplasty status post fracture at the end of September around [facility]. She states that she was trying to go to the bathroom, but did not make it and had fallen. She sustained a fracture of her right hip. She states that she was sent to [facility] for surgery. She is now to long term facility locally for rehabilitation. She takes oxycodone and a muscle relaxer. She denies any recent falls but states she is continuing to have right hip pain. She also states that she has history of a surgical wound infection for which she was on antibiotics for 7 days intravenously. She states that long term facility wants her wound evaluated as well. [facility] Medical History Acute dyspnea Aftercare following surgery of the circulatory system Alcohol abuse Amputation toe CAD (coronary artery disease), jamul coronary artery CHF (congestive heart failure) Depression [...] bowel sounds. Const Vital Signs: 10/15/23 15:35 10/15/23 17:28 Temperature 97.4 F L 97.2 F [...] she can be discharged back to the long term facility. She will continue her oxycodone and muscle relaxer. She will continue her rehabilitation of her right hip. Disposition is discharged to long term facility in stable condition. Radiography Diagnostic Testing: [...] come pick it up [facility] - Activity Restrictions/Additional Instructions: Continue your previous pain medications. Your postoperative wound does not appear to be acutely infected. Disposition Disposition: Home, Self Care What to do if you have Problems For any increased pain, shortness of breath, bleeding, nausea or vomiting, chestpain, or any unexpected problems, contact your Primary Care Provider. Call [facility] ([phone]) or report to the closest Emergency Room. Call 911 if necessary. 10/15/23 3461 <Electronically signed by Jeremiah Rawls MD> Cosigner Signature (if applicable): CC: [facility] ~ Signed [facility] Work Phone: 1(464) 688-407305-07-2024 Telephone encounter Note* Telephone Encounter - Ethel [...] calling if other than patient: Bryant @ [facility] Return call to if other than patient: same Best contact number: [phone] Thank you, Pauly Heredia October 09, 2023 9:46 AM [facility]05-06-2024 Telephone encounter Note* Telephone Encounter - Ethel Alonso - 10/08/2023 3:45 PM EDT Left message for Bryant to get an update on Trenton. Last message to her was instructions from Dr. May regarding giving her antibiotics, taking her to [place] emergency department if no improvements for a surgical consult. Thank you Ethel Shah [facility]05-06-2024 Miscellaneous Notes* Telephone Encounter - Ethel Alonso - 10/08/2023 3:45 PM EDT Left message for Bryant to get an update on Trenton. Last message to her was instructions from Dr. May regarding giving her antibiotics, taking her to [place] emergency department if no improvements for a [...] which facility was the patient seen at: [facility] Was an appointment scheduled (Y/N): no-unable to schedule per tool Person calling if other than patient: Bryant([facility]) Return call to if other than patient: Bryant Best contact number: [phone] Thank you, Melany Simon October 03, 2023 1:23 PM documented in this encounterOhio[facility] Telephone encounter Note * Telephone Encounter [...] which facility was the patient seen at: [facility] Was an appointment scheduled (Y/N): no-unable to schedule per tool Person calling if other than patient: Bryant([facility]) Return call to if other than patient: Bryant Best contact number: [phone] Thank you, Melany Simon October 03, 2023 1:23 PM [facility]05-01-2024 Telephone encounter Note* Telephone Encounter - [...] he would like her taken to the [place] Emergency Department for a surgical consult. Left my direct phone number so Bryant can call to let me know status. Thank you Ethel Shah [facility]05-01-2024 Miscellaneous Notes* Telephone Encounter - Ethel [...] he would like her taken to the [place] Emergency Department for a surgical consult. Left my direct phone number so Bryant can call to let me know status. Thank you Ethel Shah * Telephone Encounter - Ethel Alonso - 10/02/2023 12:11 PM EDT ----- Message from Agata Das sent at 10/02/2023 11:16 AM EDT ----- Regarding: Orthopedics / Lalo Hip: Pain / Post Op Within 90 Day Period Subject Line Format: Orthopedics / [Provider Name or Open & Body Part] / [Issue] Patient has been identified by name and Date of (Y/N): y Patient: Trenton Jackson Date of : 1970 Previous Provider Seen: lalo Body Part(s) Identified: r hip Diagnosis/Reason For Visit: post op Reason for the call/escalation: pt would like to schedule post op care center calling on behave of pt If reason for call/escalation is discharge from ED/ER or Hospital, which facility was the patient seen at: na Was an appointment scheduled (Y/N): n Person calling if other than patient: BRYANT [facility] Return call to if other than patient: bryant Best contact number: [phone] Thank you, Agata Das October 02, 2023 11:16 AM documented in this encounterOhio[facility]04-30-2024 Telephone encounter Note * Telephone Encounter - Ethel Alonso - 10/02/2023 12:11 PM EDT ----- Message from Agata Thiago sent at 10/02/2023 11:16 AM EDT ----- Regarding: Orthopedics / Vrabec Hip: Pain / Post Op Within 90 Day Period Subject Line Format: Orthopedics / [Provider Name or Open & Body Part] / [Issue] Patient has been identified by name and Date of (Y/N): y Patient: Trenton Jackson Date of : 1970 Previous Provider Seen: vrabe Body Part(s) Identified: r hip Diagnosis/Reason For Visit: post op Reason for the call/escalation: pt would like to schedule post op care center calling on behave of pt If reason for call/escalation is discharge from ED/ER or Hospital, which facility was the patient seen at: na Was an appointment scheduled (Y/N): n Person calling if other than patient: BR[facility] Return call to if other than patient: bryant [facility] contact number: [phone] Thank you, Agata Das October 02, 2023 11:16 AM [facility]04-29-2024 Telephone encounter Note* Telephone Encounter - Ethel Alonso - 10/01/2023 11:04 AM EDT Left message w/Clare. She will have Stephania call me when she is back on the floor with an update on Trenton. All Clare can say is that she knows Trenton is still on the antibiotics. Gave Clare my direct phone #. Thank you Ethel Shah [facility]04-29-2024 Miscellaneous Notes* Telephone Encounter - Ethel [...] wound to review. thx documented in this encounterOhiohealth [facility] Hospital04-29-2024 Telephone encounter Note * Telephone Encounter - Ethel Alonso - 10/01/2023 10:38 AM EDT ----- Message from Diya May MD sent at 09/30/2023 1:53 PM EDT ----- Please get me an update on her status. Also, a new picture of the wound to review. thx [facility]04-25-2024 Telephone encounter Note* Telephone Encounter - [...] a local orthopedic since she is in [place]. Dr. Posadas - [phone] He would like if the facility could send a picture of the incision and to start her on Doxycycline 100mg BID. Called Stephania with instructions and Dr. Posadas' phone number. Thank you Ethel Shah [facility]04-25-2024 Miscellaneous Notes* Telephone Encounter - Ethel [...] a local orthopedic since she is in [place]. Dr. Posadas - [phone] He would like if the facility could send a picture of the incision and to start her on Doxycycline 100mg BID. Called Stephania with instructions and Dr. Posadas' phone number. Thank you Ethel Shah documented in this encounterOhiohealth [facility] Hospital04-12-2024 Miscellaneous Notes* Telephone Encounter - Ethel Alonso - 09/14/2023 2:37 PM EDT Left a message for Nurse Mgr Bryant Ruiz at the rehab facility ([phone]) that we do not need toschedule an appointment at this time but we would like to have a disc with an x-ray of Ternton's pelvis for review 09/17/23. Thank you Ethel Shah * Telephone Encounter - Ethel Alonso - 09/12/2023 9:24 AM EDT ----- Message from Evelyne Madsen sent at 09/11/2023 2:07 PM EDT ----- Regarding: Sizrl-Mvrwru-bi follow up post op- hip fracture Subject Line Format: Orthopedics / [Provider Name or Open & Body Part] / [Issue] Patient has been identified by name and Date of (Y/N): Y Patient: Trenton Jackson Date of : 1970 Previous Provider Seen: LALO Body Part(s) Identified: R HIP Diagnosis/Reason For Visit: ER FOLLOW UP POST OP Reason for the call/escalation: ER FOLLOW UP POST OP- HIP FRACTURE If reason for call/escalation is discharge from ED/ER or Hospital, which facility was the patient seen at: [facility] Was an appointment scheduled (Y/N): N/A Person calling if other than patient: [facility] Return call to if other than patient: REHAB Best contact number: [phone] Thank you, Evelyne Madsen September 11, 2023 2:07 PM documented in this encounterOhiohealth [facility]04-05-2024 NoteHNO ID: [id number] Author: DANI LAGOS, CHAYITO Service: Nursing Author Type: Registered Nurse Type: Nursing Progress Note Filed: 09/07/2023 15:39 Note Text: Other: Okay to give oxy early prior to 1700 d/c per [facility]04-05-2024 NoteHNO ID: [id number] Author: KAYLA JOHNSON, ? Service: Care Management Author Type: ? Type: Care Mgt Progress Note Filed: 09/07/2023 14:05 Note Text: [facility] ([facility] PRECERT NOTE [employer] approved Nursing Home Facility for [facility]/. Precert approved through 09/18. The [facility] Medicaid precert for [facility] in CS portal is approved for 09/06 to 09/18 Reference #: [id number] --[id number] -- ID: [id number] For any additional questions regarding approvals, transport or care management needs, please contact the CM assigned to this patient in the Treatment Team. SIGNATURE: Kayla Johnson DATE: September 07, 2023 TIME: 2:05 [facility]04-05-2024 NoteHNO ID: [id number] Author: MONICA CHAPARRO APRN.CNP Service: General Surgery Author Type: Nurse Practitioner Type: Progress Notes Filed: 09/07/2023 09:11 Note Text: Trauma Surgery Progress Note SERVICE DATE: 09/07/2023 Trauma Service Pager: For questions or concerns Mon-Fri 6a-5p please page [phone]. After 5pm and on Weekends and Holidays, please page [phone] if in ICU or [phone] if on RNF. SUBJECTIVE: NAEON. Patient nauseated [...] kg/m? O2 Therapy: Room Air IANDO: Date 09/06/23699 - 09/07/23 0659 09/07/23 07 - 09/08/23 0659 Shift 3764-1259 0203-4347 5423-0527 24 Hour Total 7586-2498 6246-0539 7481-3848 24 Hour Total INTAKE Shift Total OUTPUT Urine 900 1000 1900 Urine Not Saved. 1 x 1 x Output ( External Collection Device 09/04/23 7402) 781 3496 1900 Emesis 50 50 Emesis (ml) 50 [...] 09/02/2023 Fall 09/02/2023 Coronary artery disease involving jamul coronary artery of jamul heart without angina pectoris 07/21/2018 Cannabis use disorder, mild, abuse 07/20/2018 Chronic Uncontrolled type 2 diabetes mellitus with hyperglycemia, with long-term current use of insulin ([facility]) 06/08/2018 Chronic systolic heart failure ([facility]) 06/08/2018 Anxiety and depression 06/08/2018 Cardiomyopathy ([facility]) 12/02/2017 Essential hypertension 02/20/2017 Assessment: 53 year old female s/p mechanical GLF ([place] trans (more content not included)...[facility]04-04-2024 NoteHNO ID: [id number] Author: MELISSA PHAM PA-C Service: General Surgery Author Type: Physician Voice Teacher Type: Progress Notes Filed: 09/06/2023 14:41 Note [...] intertrochanteric femur fracture as result of trauma [facility]04-04-2024 NoteHNO ID: [id number] Author: MELISSA PHAM PA-C Service: General Surgery Author Type: Physician Voice Teacher Type: Progress Notes Filed: 09/06/2023 11:21 Note Text: Trauma Surgery Progress Note SERVICE DATE: 09/06/2023 Trauma Service Pager: For questions or concerns Mon-Fri 6a-5p please page [phone]. After 5pm and on Weekends and Holidays, please page [phone] if in ICU or [phone] if on RNF. SUBJECTIVE: NAEON. Patient continues [...] Therapy: Nasal Cannula IANDO: Date 09/05/23699 - 09/06/2365809/06/23 07 - 09/07/23 0659 Shift 8832-1529 2248-4468 0455-8407 24 Hour Total 2045-1298 0612-5828 5215-6462 24 Hour Total INTAKE Shift Total OUTPUT Urine 6413 872 8213 Output ( External Collection Device 09/04/23 1025) 2924 600 9366 Shift Total 8038 002 3236 Weight (kg) 72.6 72.6 72.6 72.6 72.6 [...] 09/02/2023 Fall 09/02/2023 Coronary artery disease involving jamul coronary artery of jamul heart without angina pectoris 07/21/2018 Cannabis use disorder, mild, abuse 07/20/2018 Chronic Uncontrolled type 2 diabetes mellitus with hyperglycemia, with long-term current use of insulin ([facility]) 06/08/2018 Chronic systolic heart failure ([facility]) 06/08/2018 Anxiety and depression 06/08/2018 Cardiomy (more content not included)...[facility]04-03-2024 NoteHNO ID: [id number] Author: TERRIE URIOSTEGUI RN Service: Care Management [...] disorder, mild, abuse Coronary artery disease involving jamul coronary artery of jamul heart without angina pectoris Trauma Fall Resolved Problems: * No resolved hospital problems. * Physician: Jozef Barros DO SIGNATURE: Terrie Uriostegui RN PATIENT NAME: Trenton Jackson DATE: September 05, 2023 TIME: 4:09 PM PAGER/CONTACT #: [phone] [facility]iatric [facility]04-03-2024 NoteHNO ID: [id number] Author: TERRIE URIOSTEGUI RN Service: Care Management Author Type: Registered Nurse Type: Care Mgt Progress Note Filed: 09/05/2023 15:44 Note Text: CARE MANAGEMENT PROGRESS NOTE SERVICE DATE: 09/05/2023 SERVICE TIME: 2:52 PM LOS: 3 days [place] Given: Yes Level of Care Discussed: Nursing Home Facility Financial Disclosure Provided: No Provider List: Nursing Home Facility Provider list within the patient's requested geographic area shared with the patient/family: Yes within: 15 miles of zip code: [address] Quality and resource use metrics shared with the patient that are relevant to the patient's goals of care and treatment preferences:: Yes DC Plan: SNF , discussed pt/ot recs for SNF, pt agreeable to snf list, snf list provided, FOC is [facility]; agreeable to sending additional referrals to [facility], [facility] , and [facility] ; referrals sent Barriers to dc: precert needs to be initiated Anticipated dc date: 09/05-09/06 Transportation: [place] likely need [place] arrangements [place] ADDENDUM: [facility] still has not accepted, pt agreeable to starting precert with [facility], precert requested; Attestation note in place on 09/04 still needs cosigned SIGNATURE: Terrie Uriostegui RN PATIENT NAME: Trenton Jackson DATE: September 05, 2023 TIME: 2:52 PM PAGER/CONTACT #: [phone] Dix Psychiatric Center04-03-2024 NoteHNO ID: [id number] Author: DIYA MAY MD Service: Care Management [...] disorder, mild, abuse Coronary artery disease involving jamul coronary artery of jamul heart without angina pectoris Trauma Fall Resolved Problems: * No resolved hospital problems. * Physician: Jahaira Alfaro MD SIGNATURE: Terrie Uriostegui RN PATIENT NAME: Trenton Jackson DATE: September 05, 2023 TIME: 11:55 AM PAGER/CONTACT #: [phone] [facility]-03-2024 NoteHNO ID: [id number] Author: ROBERTO DAS PA-C Service: General Surgery Author Type: Physician Voice Teacher Type: Progress Notes Filed: 09/05/2023 07:58 Note [...] kg/m? O2 Therapy: Nasal Cannula IANDO: Date 09/04/23699 - 09/05/2365809/05/23699 - 09/06/23 0659 Shift 4996-1509 3407-3751 2407-6132 24 Hour Total 7928-5404 4282-3486 9908-0767 24 Hour Total INTAKE PO 120 120 [...] femur (HCC) 09/02/2023 Dyslipidemia (more content not included)...[facility] 09-05-2023 NoteHNO ID: [id number] Author: NICHELLE VIRAMONTES MD Service: Orthopaedic Surgery [...] from 5p-6a and on weekends for any issues.[facility]04-02-2024 NoteHNO ID: [id number] Author: NORM RUEDA LSW Service: Care Management Author Type: Edging Machine Feeder Type: Care Mgt Progress Note Filed: 09/04/2023 [...] or get rid of a hangover (eye human capital manager)? No 6. CAGE Screening? No 7. If [...] 04, 2023 TIME: 10:39 AM PAGER/CONTACT #: [phone] Dix Psychiatric Center 09-04-2023 NoteHNO ID: [id number] Author: ROBERTO DAS PA-C Service: General Surgery Author Type: Physician Voice Teacher Type: Progress Notes Filed: 09/04/2023 08:51 Note Text: Trauma Surgery Progress Note SERVICE DATE: 09/04/2023 Trauma Service Pager: For questions or concerns Mon-Fri 6a-5p please page [phone]. After 5pm and on Weekends and Holidays, please page [phone] if in ICU or [phone] if on RNF. SUBJECTIVE: Patient is POD#1 [...] Therapy: Nasal Cannula IANDO: Date 09/03/23699 - 09/04/23 0609/04/23699 - 09/05/23 0659 Shift 9508-8696 0307-5723 2531-5276 24 Hour Total 7338-2330 6354-6174 6556-1322 24 Hour Total INTAKE PO 120 120 [...] insight into current situa (more content not included)...[facility]04-02-2024 NoteHNO ID: [id number] Author: DIYA MAY MD Service: Orthopaedic Surgery [...] from 5p-6a and on weekends for any issues.[facility]04-01-2024 NoteHNO ID: [id number] Author: SAVANNA FREEMAN LSW Service: Care Management Author Type: Edging Machine Feeder Type: Care Mgt Progress Note Filed: 09/03/2023 16:06 Note Text: CARE MANAGEMENT PROGRESS NOTE SERVICE DATE: 09/03/2023 SERVICE TIME: 4:05 PM LOS: 1 day SW Consult SW attempted to see pt to complete trauma assessment, pt off the floor. SIGNATURE: SANDRA Barbosa PATIENT NAME: Trenton Jackson DATE: September 03, 2023 TIME: 4:05 PM PAGER/CONTACT #: [phone] 09-03-2023 NoteHNO ID: [id number] Author: GHASSAN PÉREZ APRN.CRNA Service: Anesthesiology Author Type: Nurse Sales Superintendent Type: Anesthesia Procedure Notes Filed: 09/03/2023 12:36 [...] September 03, 2023 TIME: 12:35 PM CSN: [id number] Rehabilitation Hospital04-01-2024 NoteHNO ID: [id number] Author: MOODY HODGE DO Service: Anesthesiology Author [...] September 03, 2023 TIME: 12:34 PM CSN: [id number] Rehabilitation Hospital04-01-2024 NoteHNO ID: [id number] Author: GHASSAN PÉREZ APRN.CRNA Service: Anesthesiology Author Type: Nurse Sales Superintendent Type: Anesthesia Procedure Notes Filed: 09/03/2023 12:34 Note Text: ANESTHESIOLOGY PROCEDURE NOTE Airway General Information Procedure Start Time/Medication Administration: 09/03/2023 12:10 PM Patient location during procedure: OR Timeout Performed Pre-procedure: timeout performed Consent Obtained: Yes Patient identity confirmed: arm band and patient Staffing SOLAR SALES ENERGY ADVISOR: Ghassan Pérez APRN.SOLAR SALES ENERGY ADVISOR Performed by: REGINA Indications and Patient Condition [...] no Airway not difficult SIGNATURE: Ghassan Pérez APRN.SOLAR SALES ENERGY ADVISOR PATIENT NAME: Trenton Jackson DATE: September 03, 2023 TIME: 12:34 PM CSN: [id number] Rehabilitation Hospital04-01-2024 NoteHNO ID: [id number] Author: DARLYN JASSO RN Service: Care Management Author Type: Registered Nurse Type: Care Mgt Initial Assessment Filed: 09/03/2023 11:08 Note Text: CARE MANAGEMENT: ASSESSMENT AND DISCHARGE PLAN SERVICE DATE: September 03, 2023 SERVICE TIME: 10:55 AM PCP: Nathaly Leonard Primary Contact: Extended Emergency Contact Information Primary Emergency Contact: Curry Jackson Jr Address: [address] [place] [address] [facility] [facility] Mobile Relation: Spouse Secondary Emergency Contact: Rebecca Dueñas Address: [place] [address] [facility] [facility] Relation: Mother Admission Status: Inpatient Insurance Provider: [employer] Discharge Planning requested by: Per Department Practice Potential Transition Plans To Be Determined Advance Directives Current Advance Directive: None Election Supervisor Attempted to Assist with AD Completion: Yes [...] Ambulate a little better, Ambulate without stopping [place] Explained: [place] Given: Yes Level of Care Discussed: Nursing Home Facility;Inpatient Rehab Facility Are you interested in [...] Xarelto although patient denies), HTN, HLD, GERD, [place], RA, seizures, GWYN, tobacco abuse, polysubstance abuse, prior incisional hernia repair, who presents as trauma transfer from [place]. Per EMS, patient feel on the wet [...] this. She wants to go close to [place] where she and her family lives. The patient will need transportation arranged at d/c. SIGNATURE: Darlyn Jasso RN PATIENT NAME: Trenton Jackson DATE: September 03, 2023 TIME: 10:54 AM CONTACT #: [phone] Dix Psychiatric Center04-01-2024 NoteHNO ID: [id number] Author: MONICA CHAPARRO APRN.CNP Service: General Surgery [...] Therapy: Nasal Cannula IANDO: Date 09/02/23699 - 09/03/2365809/03/23699 - 09/04/23 0659 Shift 4432-6660 6431-3030 3403-5114 24 Hour Total 8163-1171 0565-4916 0534-8727 24 Hour Total INTAKE Shift Total OUTPUT [...] femur (HCC) 09/02/2023 Coronary artery disease involving jamul coronary artery of jamul heart without angina pectoris 07/21/2018 Uncontrolled type 2 diabetes mellitus with hyperglycemia, with long-term current use of i (more content not included)...[facility] 09-03-2023 NoteHNO ID: [id number] Author: ALLI GARCÍA MD Service: Orthopaedic Surgery Author Type: Resident Type: Progress Notes Filed: 09/03/2023 06:34 Note Text: Inpatient Daily Progress Note Assessment and Plan Trenotn Jackson is a 53 year old female [...] 06/08/2018 Alli García MD Orthopaedic Surgery Pager #[phone] September 02[facility]03-[facility] NoteHNO ID: [id number] Author: VIRGINIA BOSE sparkle Service: Pharmacy Author Type: Pharmacist Type: Plan of Care Filed: 09/06/2023 15:35 Note Text: PHARMACY MEDICATION REVIEW Patient Name: Trenton Jackson : 1970 The following medications were updated within the SERVICE STATION CONSOLE OPERATOR medication list based on discharge note from [place] 06/2023 - patient likely nonadherent with medications prior to admission based on fill history: Medications ADDED to SERVICE STATION CONSOLE OPERATOR medication list Carvedilol 12.5 mg tablet; Take [...] Take 50 gm daily Medications CHANGED on SERVICE STATION CONSOLE OPERATOR medication list Escitalopram 10 mg tablet; Take 10 mg daily Medications REMOVED from SERVICE STATION CONSOLE OPERATOR medication list Acetaminophen (no recent fills) Baclofen (from 2018, no recent fills) Benzocaine (from 2015, no recent fills) Buspirone (from 2019, no recent fills) Dicyclomine (from 2018, no recent fills) Ibuprofen Insulin lispro (from 2019, no recent fills) Lisinopril (now on Entresto) Metoprolol (more recently on carvedilol) Omeprazole (pt on pantoprazole per [place] 06/2023 discharge summary) Oxycodone-acetaminophen (last fill #14 tabs in 05/2023 per [facility]) Ranolazine (from 2019, no recent fills) Additional comments: N/A The below information represents the best possible medication history: Yes, but would recommend confirming prescriptions with patient/family when able. Patient declined to answer questions and the number for in chart would not connect on 09/02/23. Medication history completed by: Pharmacist: Virginia Bose [facility] Source of history: Care Everywhere records Medication nonadherence identified: Unable to assess Reconciliation completed: Yes Completed by: YOLANDA Patient interested in Bedside Delivery Services or using OP Pharmacy at discharge? Unable to assess Preferred outpatient pharmacy: [facility] [address] [place] [address] - [address] - [phone] [facility] [address] [place] [address] - [address] - [phone] Allergies: Latex Itching Comment:Red and dry cracking [...] daily. Facility-Administered Medications: None (more content not included)...[facility]03-31-2024 History of Past illness Narrative* Problem Noted [...] of this encounter (statuses as of 09/14/2023) [facility]01-13-2024 Discharge summary Author Jeremy Alexander [facility] June 16, 2023 9:45am Note Date/Time June 16, 2023 9 :20am [facility] Medical Records Department [address] [place] [address] Discharge Summary 06/16/23 0920 MR#: [id number] Acct: [id number] Name: TRENTON JACKSON Rep #:[id number] : 1970 52 From: Jeremy Ahuja PCP: [facility] atus:ADM [place] Location: [place] [address] Providers Date of Admission: 06/13/23 Date of Discharge: 06/16/23 Primary Care Physician: [facility] Consultations 06/15/23 15:32 Consult: Podiatry Routine Consulting [...] was 100 yesterday and 65 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 Lantus insulin dose decreased From 25 [...] Normal S2, no murmur. Decreased pulsation of SERVICE STATION CONSOLE OPERATOR and dorsalis artery left more than right. [...] Attending Provider: Jeremy Alexander [facility] Providers: Talisha Boykin; Moody Gallagher [...] Adv Practice Prof] - Within 2 Weeks [facility],Nathaly Lainez [Primary Care Provider] - Moody Gallagher DPM [Med Staff - Active Staff] - Within 2 Weeks (For left ankle fracture. Status post TMA.) Disposition Disposition (needs filled in before D/C Order can be placed): Home, Self Care Charges/Coding Visit Charges Inpatient E&M: 48424 Disch Hosp >30min 06/16/23 0945 <Electronically signed by Jeremy Alexander MD> Cosigner Signature (if applicable): CC: Dr. Jeremy Alexander MD; [facility]~ Signed [facility] Work Phone: 1(383) 108-514001-13-2024 Discharge summary Author Jeremy Alexander [facility] June 16, 2023 9:20am Note Date/Time June 16, 2023 8 :42am [facility] Medical Records Department [address] [place] [address] [place] [address] Discharge Summary 06/16/23 0842 MR#: [id number] Acct: [id number] Name: TRENTON JACKSON Rep #:[id number] : 1970 52 From: Jeremy Ahuja PCP: [facility] atus:ADM IN Location: [place] DUV304- 1 Providers Date of Admission: 06/13/23 Primary Care Physician: [facility] Consultations 06/15/23 15:32 Consult: Podiatry Routine Consulting [...] % (Auto) 61.2, Lymph % (Auto) 22.9, [place] % (Auto) 8.9, Eos % (Auto) 5.7 [...] % (Auto) 68.5, Lymph % (Auto) 20.3, [place] % (Auto) 6.0, Eos % (Auto) 3.9, [...] 79.1 H, Lymph % (Auto) 11.4 L, [place] % (Auto) 4.9, Eos % (Auto) 3.2, [...] Attending Provider: Jeremy Alexander [facility] Providers: Talisha Boykin; Moody Gallagher [...] Adv Practice Prof] - Within 2 Weeks [facility] [Primary Care Provider] - Disposition Disposition (needs filled in before D/C Order can be placed): Home, Self Care Charges/Coding Visit Charges Inpatient E&M: 94753 Disch Hosp >30min 06/16/23 0920 <Electronically signed by Jeremy Alexander MD> Cosigner Signature (if applicable): CC: Dr. Jeremy Alexander MD; [facility]~ Signed [facility] Work Phone: 1(791) 302-205001-13-2024 Discharge summary Author Jeremy Alexander [facility] June 16, 2023 9:19am Note Date/Time June 16, 2023 8 :42am [facility] Medical Records Department [address] [place] [address] Instructions for Home/Discharge Instructions 06/16/23 0841 MR#: [id number] Acct: [id number] Name: TRENTON JACKSON Rep #:[id number] : 1970 52 From: Jeermy Ahuja PCP: [facility] atus:ADM IN Discharge Instructions Diet Discharge Diet: [...] Attending Provider: Jeremy Alexander Primary Care Provider: [facility] Consulting Providers: Talisha Boykin; Moody [...] Qty: 30 0RF Referrals / Follow Up: [facility] [Primary Care Provider] - Yesenia Zambrano PA [Med Staff - Adv Practice Prof] - Within 2 Weeks Disposition Disposition (needs filled in before D/C Order can be placed): Home, Self Care 06/16/23 09<Electronically signed by Jeremy Alexander MD>Jeremy Alexander MD CC: ALEK Gallagher; Dr. Talisha Boykin MD; [facility] ~ Signed [facility] Work Phone: 1(712) 524-473801-12-2024 Progress note Author Jeremy Alexander [facility] June 15, 2023 5:50pm Note Date/Time June 15, 2023 5 :50pm [facility] Medical Records Department [address] [place] [address] Progress Note - Hospitalist 06/15/23 1532 MR#: [id number] Acct: [id number] Name: TRENTON JACKSON Rep #:[id number] : 1970 52 From: Jeremy Ahuja PCP: [facility] St atus:ADM IN Location: [place] [address] Reason for Visit Reason for Visit: Diagnoses [...] % (Auto) 61.2, Lymph % (Auto) 22.9, [place] % (Auto) 8.9, Eos % (Auto) 5.7 [...] Normal S2, no murmur. Decreased pulsation of SERVICE STATION CONSOLE OPERATOR and dorsalis artery left more than right. [...] % (Auto) 61.2, Lymph % (Auto) 22.9, [place] % (Auto) 8.9, Eos % (Auto) 5.7 [...] % (Auto) 68.5, Lymph % (Auto) 20.3, [place] % (Auto) 6.0, Eos % (Auto) 3.9, [...] 79.1 H, Lymph % (Auto) 11.4 L, [place] % (Auto) 4.9, Eos % (Auto) 3.2, [...] Sens 17 Charges/Coding Visit Charges Inpatient E&M: 05730 Subs Hosp L2 06/15/23 4131 <Electronically signed by Jeremy Alexander MD> Cosigner Signature (if applicable): CC: ~ Signed [facility] Work Phone: 1(233) 939-124201-11-2024 Progress note Author Jeremy Alexander [facility] June 14, 2023 3:46pm Note Date/Time June 14, 2023 3 :46pm [facility] Medical Records Department [address] [place] [address] Progress Note - Hospitalist 06/14/23 1538 MR#: [id number] Acct: [id number] Name: TRENTON JACKSON Rep #:[id number] : 1970 52 From: Jeremy [facility]ja [facility] atus:ADM IN Location: [place] [address] Reason for Visit Reason for Visit: Diagnoses [...] (Auto) 76.1 H, Lymph % (Auto) 14.9 L,[place] % (Auto) 5.5, Eos % (Auto) 2.3, [...] Normal S2, no murmur. Decreased pulsation of SERVICE STATION CONSOLE OPERATOR and dorsalis artery left more than right. [...] % (Auto) 68.5, Lymph % (Auto) 20.3, [place] % (Auto) 6.0, Eos % (Auto) 3.9, [...] 79.1 H, Lymph % (Auto) 11.4 L, [place] % (Auto) 4.9, Eos % (Auto) 3.2, [...] Sens 17 Charges/Coding Visit Charges Inpatient E&M: 69031 Subs Hosp L2 06/14/23 1546 <Electronically signed by Jeremy Alexander MD> Cosigner Signature (if applicable): CC: ~ Signed [facility] Work Phone: 1(150) 689-802401-10-2024 History and physical note Author Talisha Gomezjaycee [facility] June 13, 2023 7:02pm Note Date/Time June 13, 2023 1 2:[address] [place] [address] Health System Medical Records Department [address] [place] [address] History & Physical Exam 06/13/23 0012 MR#: [id number] Acct: [id number] Name: TRENTON JACKSON Rep #:[id number] : 1970 52 From: Talisha Boykin MD PCP: [facility] atus:ADM IN Location: [place] [id number] 1 HPI - General General Date of [...] acute exacerbation of heart failure. [facility] Medical History Acute dyspnea Aftercare following surgery of the circulatory system Alcohol abuse Amputation toe CAD (coronary artery disease), jamul coronary artery CHF (congestive heart failure) Depression [...] % (Auto) 68.5, Lymph % (Auto) 20.3, [place] % (Auto) 6.0, Eos % (Auto) 3.9, [...] elects to be full code. * Total [id number] time 16 minutes. Total time spent on evaluation and management of patient, reviewing chart and specialist notes, discussing plan with patient, discussion with nursing and ancillary staff as well as documentation: 76 mins Charges/Coding Visit Charges Inpatient E&M: 07003 Init Hosp L3 Procedures Hospitalists Procedures: 31787 Advncd Care Plan 30 Min 06/13/23 190 <Electronically signed by Talisha Boykin MD> Cosigner Signature (if applicable): CC: Dr. Talisha Boykin MD; [facility]~ Signed [facility] Work Phone: 1([phone]) 133-548701-10-2024 Progress note Author Jeremyemiliano Alexander [facility] June 13, 2023 2:49pm Note Date/Time June 13, 2023 2 :26pm [facility] Medical Records Department [address] [place] [address] Progress Note - Hospitalist 06/13/23 1312 MR#: [id number] Acct: [id number] Name: TRENTON JACKSON Rep #:[id number] : 1970 52 From: Jeremy Ahuja PCP: [facility] St atus:ADM IN Location: U UED-2 Objective Data Objective Data Vital Signs: Vital [...] % (Auto) 68.5, Lymph % (Auto) 20.3, [place] % (Auto) 6.0, Eos % (Auto) 3.9, [...] 79.1 H, Lymph % (Auto) 11.4 L, [place] % (Auto) 4.9, Eos % (Auto) 3.2, [...] Signed: Laura Sam MD at 23:00 EST Reading Location ID and State: [address] [place] [address] , Service support , Physical Exam Narrative Seen and examined. [...] Normal S2, no murmur. Decreased pulsation of SERVICE STATION CONSOLE OPERATOR and dorsalis artery left more than right. [...] % (Auto) 68.5, Lymph % (Auto) 20.3, [place] % (Auto) 6.0, Eos % (Auto) 3.9, [...] 79.1 H, Lymph % (Auto) 11.4 L, [place] % (Auto) 4.9, Eos % (Auto) 3.2, [...] Sens 17 Charges/Coding Visit Charges Inpatient E&M: 61325 Subs Hosp L2 06/13/23 1517 <Electronically signed by Jeremy Alexander MD> Cosigner Signature (if applicable): CC: ~ Signed [facility] Work Phone: 1(326) 300-989601-10-2024 Discharge summary Author Riccardo Hillman [facility] June 13, 2023 12:46am Note Date/Time June 12, 2023 8: 15pm [facility] Medical Records Department [address] [place] [address] Emergency Department Summary 06/12/23 MR#: [id number] Acct: [id number] Name: TRENTON JACKSON Rep #:[id number] : 1970 52 From: Riccardo Gibson PCP: [facility] atus:REG ER Location: ED HPI History of [...] a cough but denies any sputum production. [facility] Medical History Acute dyspnea Aftercare following surgery of the circulatory system Alcohol abuse Amputation toe CAD (coronary artery disease), jamul coronary artery CHF (congestive heart failure) Depression [...] % (Auto) 68.5 Lymph % (Auto) 20.3 [place] % (Auto) 6.0 Eos % (Auto) 3.9 [...] sinus rhythm with a rate of 97. NV interval was normal at 178 ms. QRS [...] effusion, Hypoxia Disposition Disposition: Acute Care Hospital [facility] What to do if you have Problems For any increased pain, shortness of breath, bleeding, nausea or vomiting, chestpain, or any unexpected problems, contact your Primary Care Provider. Call [facility] ([phone]) or report to the closest Emergency Room. Call 911 if necessary. 06/13/23 0046 <Electronically signed by Riccardo Hillman DO> Cosigner Signature (if applicable): CC: [facility] ~ Signed [facility] Work Phone: 1(608) 420-242012-04-2023 Discharge summary Author Latricia Aaron [facility] May 07, 2023 12:08pm Note Date/Time May 07, 2023 1 2:02pm [facility] Medical Records Department [address] [place] [address] Discharge Summary 05/07/23 1121 MR#: [id number] Acct: [id number] Name: TRENTON JACKSON Rep #:[id number] : 1970 52 From: Latricia Aaron MD PCP: [facility] St atus:ADM IN Location: [facility] HMU161- 1 Providers Date of Admission: 05/03/23 Date of Discharge: 05/07/23 Primary Care Physician: [facility] Consultations 05/03/23 21:00 Consult: Cardiology Routine Consulting [...] is a 52-year-old female who presented to [facility] ED on 05/03/2023 with worsening shortness [...] Requested for PT OT eval and social work therapist to assist with discharge planning 4. Constipation [...] % (Auto) 66.3, Lymph % (Auto) 22.0, [place] % (Auto) 7.3, Eos % (Auto) 3.0, [...] Attending Provider: Latricia Aaron [facility] Providers: Alli Brito; Lei Justin; [...] Qty: 30 0RF Referrals / Follow Up: [facility] [Primary Care Provider] - 05/07/23 3:30 pm Disposition Disposition (needs filled in before D/C Order can be placed): Home, Self Care Charges/Coding Visit Charges Inpatient E&M: 19781 Disch Hosp >30min 05/07/23 1208 <Electronically signed by Latricia Aaron MD> Cosigner Signature (if applicable): CC: Dr. Latricia Aaron MD; [facility]~ Signed [facility] Work Phone: 1(291) 435-914212-04-2023 Consult note Author Josse Garcia [facility] May 07, 2023 11:50am Note Date/Time May 07, 2023 1 1:50am [facility] Medical Records Department [address] [place] [address] Counseling Note - Pharmacy 05/07/23 1149 MR#: [id number] Acct: [id number] Name: TRENTON JACKSON Rep #:[id number] : 1970 52 From: Josse Garcia [facility] atus:ADM [facility] Service has performed discharge medication reconciliation [...] signed by Josse osborne> Date _ Josse Willigner Signature (if applicable): Date CC: ~ Signed [facility] Work Phone: 1(206) 104-600312-03-2023 Progress note Author Brenda Posadas [facility] May 06, 2023 4:01pm Note Date/Time May 06, 2023 8 :07am [facility] Medical Records Department [address] [facility] [facility] [address] Progress Note - Hospitalist 05/06/23802 MR#: [id number] Acct: [id number] Name: TRENTON JACKSON Rep #:[id number] : 1970 52 From: Brenda Posadas MD PCP: [facility] atus:ADM IN Location: [place] [address] Reason for Visit Reason for Visit: Diagnoses [...] % (Auto) 62.7, Lymph % (Auto) 24.3, [place] % (Auto) 7.5, Eos % (Auto) 4.1, [...] is a 52-year-old female who presented to [facility] ED on 05/03/2023 with worsening shortness [...] 35 minutes. Charges/Coding Visit Charges Inpatient E&M: 97191 Subs Hosp L2 05/06/23 1601 <Electronically signed by Brenda Posadas MD> Cosigner Signature (if applicable): CC: ~ Signed [facility] Work Phone: 1(115) 541-971812-03-2023 Progress note Author Alli Brito [facility] May 06, 2023 10:31am Note Date/Time May 06, 2023 1 0:31am [facility] Medical Records Department [address] [place] [address] Progress Note - Cardiology 05/06/23 1030 MR#: [id number] Acct: [id number] Name: TRENTON JACKSON Rep #:[id number] : 1970 52 From: Alli Brito MD PCP: [facility] atus:ADM IN Location: [place] [address] Subjective Subjective Patient seen and evaluated. Appears [...] % (Auto) 62.7, Lymph % (Auto) 24.3, [place] % (Auto) 7.5, Eos % (Auto) 4.1, [...] % (Auto) 62.7, Lymph % (Auto) 24.3, [place] % (Auto) 7.5, Eos % (Auto) 4.1, [...] of congestive heart failure which is systolic Casey Heart Association class III. It appears that [...] she would be a candidate for a ORIENTAL MEDICINE PRACTITIONER-D. (2) History of coronary artery disease: PLAN: [...] Cosigner Signature (if applicable): CC: ~ Signed [facility] Work Phone: 1(222) 942-346312-02-2023 Progress note Author Brenda Posadas [facility] May 05, 2023 3:29pm Note Date/Time May 05, 2023 9 :59am [facility] Medical Records Department [address] [place] [address] Progress Note - Hospitalist 05/05/2358 MR#: [id number] Acct: [id number] Name: TRENTON JACKSON Rep #:[id number] : 1970 52 From: Brenda Posadas MD PCP: [facility] atus:ADM IN Location: [place] [address] Reason for Visit Reason for Visit: Diagnoses [...] % (Auto) 61.2, Lymph % (Auto) 23.6, [place] % (Auto) 7.4, Eos % (Auto) 6.5 [...] insufficiency. Ordering Physician: Lei Justin Referring Physician: [facility] Performed By: Jyoti Pandey, [place], RVT Rhythm [...] is a 52-year-old female who presented to [facility] ED on 05/03/2023 with worsening shortness [...] 35 minutes. Charges/Coding Visit Charges Inpatient E&M: 27446 Subs Hosp L2 05/05/23 1529 <Electronically signed by Brenda Posadas MD> Cosigner Signature (if applicable): CC: ~ Signed [facility] Work Phone: 1([phone]) 836-909812-02-2023 Progress note Author Alli Brito [facility] May 05, 2023 11:03am Note Date/Time May 05, 2023 1 1:03am [facility] Medical Records Department [address] [place] [address] Progress Note - Cardiology 05/05/23 1102 MR#: [id number] Acct: [id number] Name: TRENTON JACKSON Rep #:[id number] : 1970 52 From: Alli Brito MD PCP: [facility] atus:ADM [facility] Subjective Subjective Patient seen and evaluated. Appears [...] % (Auto) 61.2, Lymph % (Auto) 23.6, [place] % (Auto) 7.4, Eos % (Auto) 6.5 [...] % (Auto) 61.2, Lymph % (Auto) 23.6, [place] % (Auto) 7.4, Eos % (Auto) 6.5 [...] insufficiency. Ordering Physician: Lei Justin Referring Physician: [facility] Performed By: Jyoti Pandey, [place], RVT Physical [...] of congestive heart failure which is systolic Casey Heart Association class III. It appears that [...] she would be a candidate for a ORIENTAL MEDICINE PRACTITIONER-D. (2) History of coronary artery disease: PLAN: [...] Cosigner Signature (if applicable): CC: ~ Signed [facility] Work Phone: 1([phone]) 391-295512-01-2023 Progress note Author Brenda Posadas [facility] May 04, 2023 5:51pm Note Date/Time May 04, 2023 8 :34am [facility] Medical Records Department [address] [place] [address] Progress Note - Hospitalist 05/04/23 0826 MR#: [id number] Acct: [id number] Name: TRENTON JACKSON Rep #:[id number] : 1970 52 From: Brenda Posadas MD PCP: [facility] atus:ADM IN Location: [place] [address] Reason for Visit Reason for Visit: Diagnoses [...] 77.6 H, Lymph % (Auto) 13.6 L, [place] % (Auto) 3.9, Eos % (Auto) 3.4, [...] is a 52-year-old female who presented to [facility] ED on 05/03/2023 with worsening shortness [...] 35 minutes. Charges/Coding Visit Charges Inpatient E&M: 61795 Subs Hosp L2 05/04/23 1751 <Electronically signed by Brenda Posadas MD> Cosigner Signature (if applicable): CC: ~ Signed [facility] Work Phone: 1(993) 677-205012-01-2023 Consult note [facility] May 04, 2023 7:21am Note Date/Time May 04, 2023 6 :53am [facility] Medical Records Department [address] [place] [address] Consultation - Cardiology 05/04/23 0651 MR#: [id number] Acct: [id number] Name: TRENTON JACKSON Rep #:[id number] : 1970 52 From: Alli Brito MD [facility] St atus:ADM IN Location: [place] [address] Assessment & Plan Assessment/Plan (1) CHF (congestive heart failure): PLAN: She does have evidence of congestive heart failure which is systolic Casey Heart Association class III. It appears that [...] she would be a candidate for a ORIENTAL MEDICINE PRACTITIONER-D. (2) History of coronary artery disease: PLAN: [...] demonstrated this and had been evaluated in [place] and had a stress test which demonstrated [...] [facility] of [facility] coughing as [...] for further evaluation and management. [facility] Medical History (Updated 05/03/23 @ 17:53 by Paula Clayton) Acute dyspnea Aftercare following surgery of the circulatory system Alcohol abuse Amputation toe CAD (coronary artery disease), jamul coronary artery CHF (congestive heart failure) Depression [...] 77.6 H, Lymph % (Auto) 13.6 L, [place] % (Auto) 3.9, Eos % (Auto) 3.4, [...] (Auto)77.6 H, Lymph % (Auto) 13.6 L, [place] % (Auto) 3.9, Eos % (Auto) 3.4, [...] Lei Justin DO; Dr. Alli Brito MD; [facility]~ Signed [facility] Work Phone: 1(549) 915-680411-30-2023 History and physical note Author Lei Justin [facility] May 03, 2023 9:30pm Note Date/Time May 03, 2023 4:26pm [facility] Medical Records Department [address] [place], [place] [address] [place] [address] H&P Exam - Hospitalist 05/03/23 1624 MR#: [id number] Acct: [id number] Name: TRENTON JACKSON Rep #:[id number] : 1970 52 From: Lei swanson DO PCP: [facility] atus:ADM IN Location: [facility] EDN522- 1 HPI - General General Date of Admission: 05/03/23 Date of Service: 05/03/23 Chief Complaint: Worsening shortness of breath HPI Narrative TRENTON JACKSON, is a 52 F who presented to [facility] ED on 05/03/2023 with 3 to [...] other acute concerns this time. [facility] Medical History (Updated 05/03/23 @ 17:53 by Paula Clayton) Acute dyspnea Aftercare following surgery of the circulatory system Alcohol abuse Amputation toe CAD (coronary artery disease), jamul coronary artery CHF (congestive heart failure) Depression [...] 77.6 H, Lymph % (Auto) 13.6 L, [place] % (Auto) 3.9, Eos % (Auto) 3.4, [...] is a 52-year-old female who presented to [facility] ED on 05/03/2023 with worsening shortness [...] 55 minutes. Charges/Coding Visit Charges Inpatient E&M: 07065 Init Hosp L2 05/03/230 <Electronically signed by Lei Justin DO> Cosigner Signature (if applicable): CC: Dr. Lei Justin DO; [facility]~ Signed [facility] Work Phone: 1(679) 229-877211-30-2023 Discharge summary Author Ananda Coyle [facility] May 03, 2023 3:42pm Note Date/Time May 03, 2023 2:03pm [facility] Medical Records Department [address] [place] [address] Emergency Department Summary 05/03/23 MR#: [id number] Acct: [id number] Name: TRENTON JACKSON Rep #:[id number] : 1970 52 From: Ananda Coyle MD [facility] St atus:REG ER Location: ED HPI [...] abuse Amputation toe CAD (coronary artery disease), jamul coronary artery CHF (congestive heart failure) Depression [...] injector (Trulicity) 3 mg subcut QWEEK diabetes 09/01/23 [History Last Taken 02/01/23] atorvastatin 80 mg [...] CHF or pleural effusions. Differential would alsoinclude IL, anemia etc. Cardiac workup is underway. Repeat [...] 77.6 H Lymph % (Auto) 13.6 L [place] % (Auto) 3.9 Eos % (Auto) 3.4 [...] rate of 97. No acute signs of IL or ischemia. Interventricular conduction delay. Discharge Plan [...] DAILY Qty: 90 3RF [facility]: [facility] [Primary [facility] Provider] - Disposition Disposition: Acute Care Hospital [facility] What to do if you have Problems For any increased pain, shortness of breath, bleeding, nausea or vomiting, chestpain, or any unexpected problems, contact your Primary Care Provider. Call [facility] ([phone]) or report to the closest Emergency Room. Call 911 if necessary. 05/03/231541 <Electronically signed by Ananda Coyle MD> Cosigner Signature (if applicable): CC: [facility] ~ Signed [facility] Work Phone: 1(149) 481-186011-30-2023 Discharge summary Author Ananda Coyle [facility] May 03, 2023 3:42pm Note Date/Time May 03, 2023 2:03pm [facility] Medical Records Department [address] [place] [address] Emergency Department Summary 05/03/23 MR#: [id number] Acct: [id number] Name: TRENTON JACKSON Rep #:[id number] : 1970 52 From: Ananda Coyle MD PCP: [facility] atus:REG ER Location: ED HPI History of [...] abuse Amputation toe CAD (coronary artery disease), jamul coronary artery CHF (congestive heart failure) Depression [...] CHF or pleural effusions. Differential would alsoinclude IL, anemia etc. Cardiac workup is underway. Repeat [...] 77.6 H Lymph % (Auto) 13.6 L [place] % (Auto) 3.9 Eos % (Auto) 3.4 [...] rate of 97. No acute signs of IL or ischemia. Interventricular conduction delay. Discharge Plan [...] DAILY Qty: 90 3RF Primary Care Provider: Nathaly Dickey Referrals: [facility] Nathaly Finney [Primary Care Provider] - Disposition Disposition: Acute Care Hospital [facility] What to do if you have Problems For any increased pain, shortness of breath, bleeding, nausea or vomiting, chestpain, or any unexpected problems, contact your Primary Care Provider. Call [facility] ([phone]) or report to the closest Emergency Room. Call 911 if necessary. 05/03/23 1542 <Electronically signed by Ananda Coyle MD> Nicoletteigner Signature (if applicable): CC: [facility] ~ Signed [facility] Work Phone: 1(634) 171-978409-02-2023 Discharge summary Author Sabina Rosenberg [facility] February 03, 2023 4:02pm Note Date/Time February 03, 2023 3:30pm [facility] Medical Records Department [address] [place] [address] Instructions for Home/Discharge Instructions 02/03/23 1530 MR#: [id number] Acct: [id number] Name: TRENTON JACKSON Rep #:[id number] : 1970 52 From: Sabina Rosenberg DO PCP: [facility] St atus:ADM REHAN Discharge Instructions Diet Discharge Diet: 1800 Calorie Control Diet Activity Weight Bearing Status: Full weight bearing Follow Up Care Test Results: Test results from this visit will be discussed in further detail at your follow- up appointment, if applicable. Discharge Plan Admission Admit Date/Time: 02/02/23 16:24 Primary Reason for Your Visit: CHF Attending Provider: Sabina Rosenberg [facility] Consulting Providers: Brandon Adames Discharge Orders/Prescriptions Prescriptions: [...] Qty: 30 0RF [facility] [Primary Care Provider] - Within 2 Weeks Disposition Disposition (needs filled in before D/C Order can be placed): Home, Self Care 02/03/23 1602<Electronically signed by Sabina Rosenberg DO>Sabina Rosenberg DO CC: Dr. Brandon Adames MD; [facility] ~ Signed [facility] Work Phone: [phone]) 803-279909-01-2023 History and physical note Author Brandon Adames [facility] February 02, 2023 5:56pm Note Date/Time February 02, 2023 5:08pm [facility] Medical Records Department [address] [place] [address] H&P Exam - Hospitalist 02/02/23 1627 MR#: [id number] Acct: [id number] Name: TRENTON JACKSON Rep #:[id number] : 1970 52 From: Brandon talavera MD PCP: [facility] atus:ADM REHAN Location: [place] [address] HPI - General General Date of Admission: [...] has been unable to follow-up with a miller distillery since that time but states that she has been taking her medications appropriately and watching her diet. She comes in today because she is also been having some shortness of breath, she did drop heroxygen down to 88% and is managing on 2 L nasal cannula. She did receive a doseof Lasix in the ER. [facility] Medical History Acute dyspnea Aftercare following surgery of the circulatory system Alcohol abuse CAD (coronary artery disease), jamul coronary artery CHF (congestive heart failure) Depression [...] 70.1 H, Lymph % (Auto) 18.4 L, [place] % (Auto) 6.1, Eos % (Auto) 3.9, [...] with colleagues Charges/Coding Visit Charges Inpatient E&M: 79374 Init Hosp L3 02/02/23 3626 <Electronically signed by Brandon Adames MD> Cosigner Signature (if applicable): CC: Dr. Brandon Adames MD; [facility]~ Signed [facility] Work Phone: [phone]) 930-251509-01-2023 History and physical note Author Brandon Adames [facility] February 02, 2023 5:56pm Note Date/Time February 02, 2023 5:08pm [facility] Medical Records Department [address] [place] [address] H&P Exam - Hospitalist 02/02/23 1627 MR#: [id number] Acct: [id number] Name: TRENTON JACKSON Rep #:[id number] : 1970 52 From: Brandon talavera MD PCP: [facility] St atus:ADM REHAN Location: [address] HPI - General General Date of [...] has been unable to follow-up with a miller dist[employer] since that time but states that she has been taking her medications appropriately and watching her diet. She comes in today because she is also been having some shortness of breath, she did drop heroxygen down to 88% and is managing on 2 L nasal cannula. She did receive a doseof Lasix in the ER. [facility] Medical History Acute dyspnea Aftercare following surgery of the circulatory system Alcohol abuse CAD (coronary artery disease), jamul coronary artery CHF (congestive heart failure) Depression [...] 70.1 H, Lymph % (Auto) 18.4 L, [place] % (Auto) 6.1, Eos % (Auto) 3.9, [...] with colleagues Charges/Coding Visit Charges Inpatient E&M: 25456 Init Hosp L3 02/02/23 1756 <Electronically signed by Brandon Adames MD> Cosigner Signature (if applicable): CC: Dr. Brandon Adames MD; [facility]~ Signed [facility] Work Phone: 1([phone]) 627-809809-01-2023 Discharge summary Author Zack Card [facility] February 02, 2023 3:56pm Note Date/Time February 02, 2023 12:13pm [facility] Medical Records Department [address] [place] [address] Emergency Department Summary 02/02/23 MR#: [id number] Acct: [id number] Name: TRENTON JACKSON Rep #:[id number] : 1970 52 From: Zack Han PCP: [facility] St atus:REG ER Location: ED HPI History [...] Factors: Positive for Prior DVT or PE [facility] Medical History Acute dyspnea Aftercare following surgery of the circulatory system Alcohol abuse CAD (coronary artery disease), jamul coronary artery CHF (congestive heart failure) Depression [...] clinician: Hospitalist This note was generated with Cod[employer] dictation software. It may contain incorrectwords, spelling, [...] 70.1 H Lymph % (Auto) 18.4 L [place] % (Auto) 6.1 Eos % (Auto) 3.9 [...] pleural effusion Disposition Disposition: Acute Care Hospital [facility] What to do if you have Problems For any increased pain, shortness of breath, bleeding, nausea or vomiting, chestpain, or any unexpected problems, contact your Primary Care Provider. Call [facility] ([phone]) or report to the closest Emergency Room. Call 911 if necessary. 02/02/23 6557 <Electronically signed by Zack Han> Cosigner Signature (if applicable): CC: [facility] ~ Signed [facility] Work Phone: [phone]) 993-682308-02-2023 Consult note Author Josse Garcia [facility] January 03, 2023 11:29am Note Date/Time January 03, 2023 11: 09am [facility] Medical Records Department [address] [place] [address] Counseling Note - Pharmacy 01/03/23 1106 MR#: [id number] Acct: [id number] Name: TRENTON JACKSON Rep #:[id number] : 1970 52 From: Josse Garcia PCP: [facility] St atus:ADM IN Y [facility] has performed discharge medication reconciliation [...] 01/03/23 01/03/23 1109 <Electronically signed by Josse osborne> Date _ Josse Angel Signature (if applicable): Date CC: ~ Signed ADDENDUM by Josse Garcia on 01/03/23 at 1129 The medical case manager Paula is discussing with patient if they have adequate pen needles at home for their long-acting insulin, and will discuss with MD if more are needed. 01/03/23 1129 <Electronically signed by Josse osborne> Date _ Josse Garcia Signature (if applicable): Date cc: ~* Signed [facility] Work Phone: [phone]) [phone] Discharge summary Author Sabina Rosenberg [facility] January 03, 2023 10:26am Note Date/Time January 03, 2023 10: 18am [facility] Medical Records Department [address] [place] [address] Instructions for Home/Discharge Instructions 01/03/23 1018 MR#: [id number] Acct: [id number] Name: TRENTON JACKSON Rep #:[id number] : 1970 52 From: Sabina Rosenberg DO PCP: [facility] atus:ADM IN Discharge Instructions Diet Discharge Diet: [...] Attending Provider: Sabina Rosenberg Primary Care Provider: [facility] Discharge Orders/Prescriptions Prescriptions: New lisinopril [...] Active Staff] - 02/28/23 11:00 am [facility]Nathaly Lainez [Primary Care Provider] - Within 2 Weeks Disposition Disposition (needs filled in before D/C Order can be placed): Home, Self Care 01/03/23 1026<Electronically signed by Sabina Rosenberg DO>Sabina Rosenberg DO CC: [facility] ~ Signed [facility] Work Phone: [phone] 388-509908-01-2023 Progress note Author Sabina Rosenberg [facility] January 02, 2023 5:29pm Note Date/Time January 02, 2023 5:3 0pm [facility] Medical Records Department [address] [place] [address] Progress Note - Hospitalist 01/02/23 1726 MR#: [id number] Acct: [id number] Name: TRENTON JACKSON Rep #:[id number] : 1970 52 From: Sabina Rosenberg DO PCP: [facility] atus:ADM IN Location: [place] [id number]- 1 Reason for Visit Reason for Visit: [...] that I would get an appointment at [place] [facility] for the patient to follow-up with [...] Intake and Output for Last 24 Hours 12/31/22 01/01/23 01/02/23 23:59 23:59 23:59 Intake Total 1000 / [...] with her physicians as directed, I contacted [place] [facility] and they will make an appointment for the patient to follow-up for ongoing care. #3 cardiomyopathy, probably ischemic in nature-patient will need close follow- upwith a miller distillery after her discharge from the hospital, I [...] 50 minutes Charges/Coding Visit Charges Inpatient E&M: 71587 Subs Hosp L3 01/02/231728 <Electronically signed by Sabina Rosenberg DO> Cosigner Signature (if applicable): CC: ~ Signed [facility] Work Phone: [phone]) 259-193207-31-2023 History and physical note Author Sabina Rosenberg [facility] January 01, 2023 9:28pm Note Date/Time January 01, 2023 9:28 pm [facility] Medical Records Department [address] [place] [address] [place] [address] H&P Exam - Hospitalist 01/01/232112 MR#: [id number] Acct: [id number] Name: TRENTON JACKSON Rep #:[id number] : 1970 52 From: Sabina Rosenberg [facility]us[facility]ADM IN Location: [facility] [id number]- 1 HPI - General General Date of Admission: 01/01/23 Date of Service: 01/01/23 Chief Complaint: Shortness of breath, cough, chest pain on coughing and deep breathing HPI Narrative TRENTON JACKSON, is a 52 F who presents to the emergency room at [facility] with complaints of cough productive of [...] [facility] [...] causes her to be unwell. [facility] Medical History (Updated 01/01/23 @ 17:18 by Elisabeth Elizalde) Alcohol abuse CAD (coronary artery disease), jamul coronary artery CHF (congestive heart failure) Congestive [...] 75.1 H, Lymph % (Auto) 16.1 L, [place] % (Auto) 5.0, Eos % (Auto) 2.7, [...] nature-patient will need close follow- upwith a miller distillery after her discharge from the hospital, I [...] 75 minutes Charges/Coding Visit Charges Inpatient E&M: 05801 Init Hosp L3 01/01/232127 <Electronically signed by Sabina Rosenberg DO> Cosigner Signature (if applicable): CC: Dr. Sabina Rosenberg, ; [facility]~ Signed [facility] Work Phone: [phone]) [phone] Discharge summary Author Yvette Hanley [facility] January 01, 2023 4:35pm Note Date/Time January 01, 2023 1:15 pm [facility] Medical Records Department [address] [place] [address] Emergency Department Summary 01/01/23 MR#: [id number] Acct: [id number] Name: TRENTON JACKSON Rep #:[id number] : 1970 52 From: Yvette Hanley DO PCP: [facility] St atus:REG ER Location: ED HPI History [...] to 3 days and has been taking Renetta-Kinsey cold relief. Patient denies nausea or vomiting. [...] from the knee down to the foot. [facility] Medical History CAD (coronary artery disease), jamul coronary artery CHF (congestive heart failure) GERD (gastroesophageal reflux disease) HTN (hypertension) Hx of fracture of humerus Hyperlipidemia Toe amputee Home Medications alendronate 70 mg tablet 70 mg PO BONE Fablistic 07/25/22 [History Last Taken Unknown] cholecalciferol (vitamin [...] established on arrival. Patient placed on a court monitor. EKG obtained on arrival showed sinus [...] 75.1 H Lymph % (Auto) 16.1 L [place] % (Auto) 5.0 Eos % (Auto) 2.7 [...] Nausea) Qty: 10 0RF Primary Care Provider: [facility] Nathaly Finney [facility]: [facility] - Disposition Disposition: Acute Care Hospital [facility] What to do if you have Problems For any increased pain, shortness of breath, bleeding, nausea or vomiting, chestpain, or any unexpected problems, contact your Primary Care Provider. Call [facility] ([phone]) or report to the closest Emergency Room. Call 911 if necessary. 01/01/23 1635 <Electronically signed by Yvette Hanley DO> Cosigner Signature (if applicable): CC: [facility] ~ Signed [facility] Work Phone: [phone] Discharge summary Author [facility]vette [facility] January 01, 2023 4:35pm Note Date/Time January 01, 2023 1:15 pm [facility] Medical Records Department [address] [place] [address] Emergency Department Summary 01/01/23 MR#: [id number] Acct: [id number] Name: TRENTON JACKSON Rep #:[id number] : 1970 52 From: Yvette Hanley DO PCP: [facility] St atus:REG ER Location: ED HPI History [...] to 3 days and has been taking Renetta-Kinsey cold relief. Patient denies nausea or vomiting. [...] from the knee down to the foot. [facility] Medical History CAD (coronary artery disease), jamul coronary artery CHF (congestive heart failure) GERD [...] established on arrival. Patient placed on a court monitor. EKG obtained on arrival showed sinus [...] 75.1 H Lymph % (Auto) 16.1 L [place] % (Auto) 5.0 Eos % (Auto) 2.7 [...] Nausea) Qty: 10 0RF [facility] Provider] - Disposition Disposition: Acute Care Hospital [facility] What to do if you have Problems For any increased pain, shortness of breath, bleeding, nausea or vomiting, chestpain, or any unexpected problems, contact your Primary Care Provider. Call [facility] ([phone]) or report to the closest Emergency Room. Call 911 if necessary. 01/01/23 1635 <Electronically signed by Yvette Hanley DO> Cosigner Signature (if applicable): CC: [facility] ~ Signed [facility] Work Phone: 1(166) [phone] Hospital Discharge instructions Additional Instructions Plenty of fluids such as water, prune juice and fruits, vegetables and fiber to help with constipation. GoLytely: Drink 6 to 8 ounce is every hour as needed and to have a bowel movement.[facility] Work Phone: 1([phone]) 155-772204-30-2023 Hospital Discharge instructions Additional Instructions Plenty of fluids such as water, prune juice and fruits, vegetables and fiber to help with constipation. GoLytely: Drink 6 to 8 ounce is every hour as needed and to have a bowel movement.[facility] Work Phone: [phone] Card [facility] September 18, 2022 6:48pm Note Date/Time September 18, 2022 2:3 5pm [facility] Medical Records Department [address] [place] [address] Emergency Department Summary 09/18/22 MR#: [id number] Acct: [id number] Name: TRENTON JACKSON Rep #:[id number] : 1970 52 From: Zack Han PCP: [facility] St atus:[facility] ER Location: ED HPI History of Present [...] PFSH Medical History CAD (coronary artery disease), jamul coronary artery CHF (congestive heart failure) GERD (gastroesophageal reflux disease) HTN (hypertension) Hx of fracture of humerus Hyperlipidemia Toe amputee Home Medications alendronate 70 mg tablet 70 mg PO [facility] 07/25/22 [History Last Taken Unknown] cholecalciferol (vitamin [...] 74.8 H Lymph % (Auto) 18.4 L [place] % (Auto) 5.3 Eos % (Auto) 0.7 [...] (Auto) Neut % (Auto) Lymph % (Auto) [place] % (Auto) Eos % (Auto) Baso % [...] 18:41 EDT Reading Location ID and State: [facility] / [place] , Service support , Discharge Plan Triage [...] Nausea) Qty: 10 0RF [facility] Ref[facility]: [facility] [Primary Care Provider] - 3-5 Days Activity Restrictions/Additional Instructions: Hip x-ray negative. Labs are stable. Follow-up with your doctor. Disposition Disposition: Home, Self Care What to do if you have Problems For any increased pain, shortness of breath, bleeding, nausea or vomiting, chestpain, or any unexpected problems, contact your Primary Care Provider. Call [facility] ([phone]) or report to the closest Emergency Room. Call 911 if necessary. 09/18/221847 <Electronically signed by Zack Han> Cosigner Signature (if applicable): CC: [facility] ~ Signed [facility] Work Phone: 1([phone] Forde [facility] September 02, 2022 11:17am Note Date/Time September 02, 2022 11:1 7am [facility] Medical Records Department [facility] [place] [address] [place] [address] Discharge Summary 09/02/22 1115 MR#: [id number] Acct: [id number] Name: TRENTON JACKSON Rep #:[id number] : 1970 52 From: Jeison Forde DPM PCP: [facility] atus:ADM IN Location: [place] [address] Providers Date of Admission: 08/30/22 Primary Care Physician: [facility] Consultations 08/30/22 17:15 Consult: Hospitalist Routine Consulting Provider: Sabina Rosenberg Reason for Consult: medical management/pre operative clearance EMERGENT Consult: No MD Notified: Yes Date Notified: 08/30/22 Time Notified: 17:55 Method of Notification: Verbal 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 Routine Comment: Reason For Visit: GANGRENE RIGH 2ND TOE Diagnosis Discharge Diagnosis (1) Cellulitis of right foot: Status: Acute Code(s): L03.115 - Cellulitis of right lower limb (2) Diabetes mellitus, type 2: Status: Chronic Code(s): E11.9 - Type 2 diabetes mellitus without complications (3) Atherosclerosis of lower extremity: Status: Acute Code(s): I70.209 - Unspecified atherosclerosis of jamul arteries of extremities, unspecified extremity (4) Dry [...] alendronate 70 mg tablet 70 mg PO dax [place] 07/25/22 cholecalciferol (vitamin D3) 25 mcg (1,000 [...] Attending Provider: Jeison Forde [facility] Providers: Sabina Rosenberg Instructions Additional Instructions [...] Cosigner Signature (if applicable): CC: ALEK Forde; [facility]~ Signed [facility] Work Phone: [phone]) [phone] Rosenberg [facility] September 02, 2022 10:21am Note Date/Time September 02, 2022 10:2 1am [facility] Medical Records Department [address] [place] [address] Progress Note - Hospitalist 09/02/22 1018 MR#: [id number] Acct: [id number] Name: TRENTON JACKSON Rep #:[id number] : 1970 52 From: Sabina Rosenberg DO PCP: [facility] [address] atus:ADM IN Location: [address] Reason for Visit Reason for Visit: Diagnoses Type 2 diabetes mellitus without complications (08/30/22) Unspecified atherosclerosis of jamul arteries of extremities, unspecified extremity (08/30/22) Peripheral [...] 35 minutes Charges/Coding Visit Charges Inpatient E&M: 58695 Subs Hosp L2 09/02/22 1021 <Electronically signed by Sabina Rosenberg DO> Cosigner Signature (if applicable): CC: ~ Signed [facility] Work Phone: 1([phone]) 955-412204-01-[address] Forde [facility] September 02, 2022 10:20am Note Date/Time September 02, 2022 10:2 0am [facility] Medical Records Department [facility] [place] [address] Progress Note 09/02/22 1018 MR#: [id number] Acct: [id number] Name: TRENTON JACKSON Rep #:[id number] : 1970 52 From: Jeison Forde DPM PCP: [facility] atus:ADM IN Location: MS3 AE839-1 Subjective Subjective Patient denies constitutional symptoms. pain [...] Cosigner Signature (if applicable): CC: ~ Signed [facility] Work Phone: 1([phone]) 542-490504-01-[address] Rosenberg [facility] September 02, 2022 10:18am Note Date/Time September 02, 2022 9:45 am [facility] Medical Records Department [address] [place] [address] Instructions for Home/Discharge Instructions 09/02/22 0941 MR#: [id number] Acct: [id number] Name: TRENTON JACKSON Rep #:[id number] : 1970 52 From: Sabina Rosenberg DO PCP: [facility] St atus:ADM IN Discharge Instructions Diet Discharge [...] Attending Provider: Jeison Forde [facility] Consulting Providers: Sabina Rosenberg Discharge Orders/Prescriptions Prescriptions: [...] Rosenberg DO>Sabina Rosenberg DO CC: Dr. Sabina Rosenberg, ; [facility] ~ Signed [facility] Work Phone: 1([phone]) [phone] Rosenberg [facility] September 01, 2022 6:58pm Note Date/Time September 01, 2022 3:2 3pm [facility] Medical Records Department [address] [place] [address] Progress Note - Hospitalist 09/01/22 1518 MR#: [id number] Acct: [id number] Name: TRENTON JACKSON Rep #:[id number] : 1970 52 From: Sabina Rosenberg DO PCP: [facility] St atus:ADM IN Location: [place] [address] Reason for Visit Reason for Visit: Diagnoses Type 2 diabetes mellitus without complications (08/30/22) Unspecified atherosclerosis of jamul arteries of extremities, unspecified extremity (08/30/22) Peripheral [...] 35 minutes Charges/Coding Visit Charges Inpatient E&M: 27820 Subs Hosp L2 09/01/22 0626 <Electronically signed by Sabina Rosenberg DO> Cosigner Signature (if applicable): CC: ~ Signed [facility] Work Phone: 1(627) 205-114703-31-[address] Forde [facility] September 01, 2022 12:02pm Note Date/Time September 01, 2022 12: 02pm [facility] Medical Records Department [address] [place] [address] Progress Note 09/01/22 1200 MR#: [id number] Acct: [id number] Name: TRENTON JACKSON Rep #:[id number] : 1970 52 From: Jeison Forde DPM [facility] [facility] atus:ADM IN [facility] Subjective Subjective 52-year-old female 1 day postop [...] Cosigner Signature (if applicable): CC: ~ Signed [facility] Work Phone: 1(331) 611-860603-30-[address] Rosenberg [facility] August 31, 2022 5:17pm Note Date/Time August 31, 2022 4:5 9pm [facility] Medical Records Department [address] [place] [address] Progress Note - Hospitalist 08/31/22 1658 MR#: [id number] Acct: [id number] Name: TRENTON JACKSON Rep #:[id number] : 1970 52 From: Sabina Rosenberg DO PCP: NATHALY [facility] atus:ADM IN Location: [place] [address]-1 Reason for Visit Reason for Visit: Diagnoses [...] an outpatient, I called her primarycare office ([facility]) and talk to Lory who is the [...] % (Auto) 64.6, Lymph % (Auto) 26.6, Plymouth % (Auto) 6.5, Eos % (Auto) 1.3, [...] stated that she was sent to the [facility] for further evaluation and it was [...] 35 minutes Charges/Coding Visit Charges Inpatient E&M: 24905 Subs Hosp L2 08/31/22 7257 <Electronically signed by Sabina Rosenberg DO> Cosigner Signature (if applicable): CC: ~ Signed [facility] Work Phone: 1(674) 283-568403-30-2023 Procedure [facility] 08-30-[address] Rosenberg [facility] August 30, 2022 8:00pm Note Date/Time August 30, 2022 7:5 0pm [facility] Medical Records Department [address] [place] [address] Progress Note - Hospitalist 08/30/221943 MR#: [id number] Acct: [id number] Name: TRENTON JACKSON Rep #:[id number] : 1970 52 From: Sabina Rosenberg DO [facility] atus:ADM IN Location: OR3 [id number] Reason for Visit Reason for Visit: Diagnoses Peripheral vascular disease, unspecified (08/30/22) Cellulitis of right lower limb (08/30/22) Pain in right foot (08/30/22) Subjective Subjective Patient was seen and examined today at request of podiatry, she is a 89-dd[age]drycxipc female came to the ER today with complaints of pain and dry gangrene to the distal area of her right second toe. Patient's chronic medical problems include type 2 diabetes, peripheral vascular disease, essential hypertension, hyperlipidemia, GERD, and a history of congestive heart failure. Patient does not follow with a [employer], she is being seen by her PCP. [...] 77.4 H, Lymph % (Auto) 15.4 L, [place] % (Auto) 5.9, Eos % (Auto) 0.5, [...] stated that she was sent to the [facility] for further evaluation and it was [...] 50 minutes Charges/Coding Visit Charges Inpatient E&M: 72514 Subs Hosp L3 08/30/221999 <Electronically signed by Sabina Rosenberg DO> Cosigner Signature (if applicable): CC: ~ Signed [facility] Work Phone: 1(712) 768-655903-29-2023 History and physical note Author Dr. Forde [facility] August 30, 2022 4:09pm Note Date/Time August 30, 2022 4:0 9pm [facility] Medical Records Department [address] [place] [address] History & Physical Exam 08/30/22 1600 MR#: [id number] Acct: [id number] Name: TRENTON JACKSON Rep #:[id number] : 1970 52 From: Jeison Forde DPM PCP: [facility] atus:REG ER Location: ED HPI - [...] Patient has no other complaints. [facility] Medical History CAD (coronary artery disease), jamul coronary artery CHF (congestive heart failure) GERD [...] 77.4 H, Lymph % (Auto) 15.4 L, Plymouth % (Auto) 5.9, Eos % (Auto) 0.5, [...] Cosigner Signature (if applicable): CC: ALEK Forde; [facility]~ Signed [facility] Work Phone: 1(221) 342-125803-29-2023 History and physical note Author Dr. Forde [facility] August 30, 2022 4:09pm Note Date/Time August 30, 2022 4:0 9pm [facility] Medical Records Department [address] [place] [address] History & Physical Exam 08/30/22 1600 MR#: [id number] Acct: [id number] Name: TRENTON JACKSON Rep #:[id number] : 1970 52 From: Jeison Forde DPM PCP: [facility] atus:REG ER Location: ED HPI - [...] Patient has no other complaints. [facility] Medical History CAD (coronary artery disease), jamul coronary artery CHF (congestive heart failure) GERD [...] 77.4 H, Lymph % (Auto) 15.4 L, Plymouth % (Auto) 5.9, Eos % (Auto) 0.5, [...] Cosigner Signature (if applicable): CC: ALEK Forde; [facility]~ Signed [facility] Work Phone: 1([phone]) 605-406203-29-[address] Rawls [facility] August 30, 2022 4:06pm Note Date/Time August 30, 2022 2:0 7pm [facility] Medical Records Department [address] [place] [address] Emergency Department Summary 08/30/22 MR#: [id number] Acct: [id number] Name: TRENTON JACKSON Rep #:[id number] : 1970 52 From: Jeremiah Rawls MD PCP: [facility] atus:REG ER Location: ED HPI History [...] other symptoms. Chief Complaint: Lower Extremity Injury [facility] Medical History CAD (coronary artery disease), jamul coronary artery CHF (congestive heart failure) GERD [...] 77.4 H Lymph % (Auto) 15.4 L [place] % (Auto) 5.9 Eos % (Auto) 0.5 [...] (Auto) Neut % (Auto) Lymph % (Auto) [place] % (Auto) Eos % (Auto) Baso % [...] EDT , Management Discussion w/another healthcare provider: Order Worker (Dr. Riccardo Ng with vascular surgery, Dr. [...] TID Qty: 30 0RF [facility]: [facility] [Primary Care Provider] - What to do if you have Problems For any increased pain, shortness of breath, bleeding, nausea or vomiting, chestpain, or any unexpected problems, contact your Primary Care Provider. Call [facility] ([phone]) or report to the closest Emergency Room. Call 911 if necessary. 08/30/22 1557 <Electronically signed by Jeremiah Rawls MD> Cosigner Signature (if applicable): CC: [facility] ~ Signed ADDENDUM by Dr. Jeremiah Rawls MD on 08/30/22 at 1606 EKG was obtained for presurgical testing by Dr. Forde. I interpreted the EKG as sinus tachycardia at 118 bpm without ectopy or acute ST changes. No STEMI. 08/30/22 1606<Electronically signed by Jeremiah Rawls MD> Cosigner Signature (if applicable): cc: [facility] ~* Signed [facility] Work Phone: [phone]) [phone] Black [facility] August 14, 2022 4:44pm Note Date/Time August 14, 2022 2:3 8pm [facility] Medical Records Department [address] [place] [address] Emergency Department Summary 08/14/22 MR#: [id number] Acct: [id number] Name: TRENTON JACKSON Rep #:[id number] : 1970 51 From: Roberto Black MD [facility] atus:REG ER Location: ED HPI History [...] stopping this with poor vascular flow distally. [facility] Medical History CAD (coronary artery disease), jamul coronary artery CHF (congestive heart failure) GERD [...] 78.3 H Lymph % (Auto) 13.9 L [place] % (Auto) 5.8 Eos % (Auto) 0.8 [...] 81 mg PO DAILY [facility] Referrals: Riccardo Ng MD [Med Staff - Active Staff] - Keep Diandra appointment [facility] - Disposition Disposition: Home, Self Care What to do if you have Problems For any increased pain, shortness of breath, bleeding, nausea or vomiting, chestpain, or any unexpected problems, contact your Primary Care Provider. Call [facility] ([phone]) or report to the closest Emergency Room. Call 911 if necessary. 08/14/22 1644 <Electronically signed by Roberto Black MD> Cosigner Signature (if applicable): CC: [facility]ATH[facility]Y [facility] ~ Signed [facility] Work Phone: [phone] 337-290003-09-2023 Procedure [facility] 07-25-[address] Mcneal [facility] July 25, 2022 11:38am Note Date/Time July 25, 2022 9:21am [facility] Medical Records Department [address] [place] [address] Emergency Department Summary 07/25/22 MR#: [id number] Acct: [id number] Name: TRENTON JACKSON Rep #:[id number] : 1970 51 From: Vidal Mcneal MD [...] chills. She is denying any urinary symptoms. [facility] Medical History CAD (coronary artery disease), jamul coronary artery CHF (congestive heart failure) Diabetes [...] 78.2 H Lymph % (Auto) 13.7 L [place] % (Auto) 5.2 Eos % (Auto) 1.6 [...] rhythm with a rate of 115. Normal NV interval. QTc is 478. Nonspecific changes throughout, [...] BID Primary Care Provider: Nathaly Lainez Referrals: Jeevan De Jesus DO [Med Staff - Active Staff] - 3-5 Days Nathaly Lainez [Primary Care Provider] - Disposition Disposition: Home, Self Care What to do if you have Problems For any increased pain, shortness of breath, bleeding, nausea or vomiting, chestpain, or any unexpected problems, contact your Primary Care Provider. Call [facility] ([phone]) or report to the closest Emergency Room. Call 911 if necessary. 07/25/22 1138 <Electronically signed by Vidal Mcneal MD> Cosigner Signature (if applicable): CC: Dr. 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 acute [facility] Work Phone: Evaluation note* Diagnosis Onset [...] acidosis acute Peripheral vascular disease, unspecified acute [facility] Work Phone: Evaluation note* Diagnosis Onset [...] acute Diabetes mellitus, type 2 ch ronic [facility] Work Phone: Evaluation note* Diagnosis Onset [...] Foot pain, right resolved Lactic acidosis resolved [facility] Work Phone: Evaluation note* Diagnosis Onset Date Resolution Status Acute dyspnea acute Chest pain acute Hypoxemia acute Pericardial effusion acute Pleural effusion acute [facility] Work Phone: Evaluation note* Diagnosis Onset Date Resolution Status Chest pain resolved Pleural effusion resolved Bilateral pleural effusion a cute Chest pain acute Hypoxia acute Acute exacerbation of CHF (congestive heart failure) chronic [facility] Work Phone: Evaluation note* Diagnosis Onset Date Resolution Status Chest pain resolved Pleural effusion resolved Bilateral pleural effusion a cute Acute exacerbation of CHF (congestive heart failure) resolved Chest pain resolved Hypoxia resolved CAD (coronary artery disease), jamul coronary artery acute Essential hypertension acute 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 CAD (coronary artery disease), jamul coronary artery acute Essential hypertension acute Hypersomnolence acute 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 [facility] Work Phone: Evaluation note* Diagnosis Onset Date Resolution Status Chest pain resolved Pleural effusion resolved Bilateral pleural effusion a cute Acute exacerbation of CHF (congestive heart failure) resolved Chest pain resolved Hypoxia resolved CAD (coronary artery disease), jamul coronary artery acute Essential hypertension acute 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 CAD (coronary artery disease), jamul coronary artery acute Essential hypertension acute Hypersomnolence acute 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 Epigastric pain acute GERD (gastroesophageal reflux disease) acute Acute dyspnea acute CHF (congestive heart failure) acute History of cardiomyopathy ac [place] History of coronary artery disease acute Hyperglycemia due to diabetes mellitus acute Hypoxia acute [facility] Work Phone: Evaluation note* Diagnosis Onset Date Resolution Status Bilateral pleural effusion a cute Acute exacerbation of CHF (congestive heart failure) resolved Chest pain resolved Hypoxia resolved CAD (coronary artery disease), jamul coronary artery acute Essential hypertension acute 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 CAD (coronary artery disease), jamul coronary artery acute Essential hypertension acute Hypersomnolence acute 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 Epigastric pain acute GERD (gastroesophageal reflux disease) acute Acute dyspnea acute CHF (congestive heart failure) acute History of cardiomyopathy [place] History of coronary artery disease acute Hyperglycemia due to diabetes mellitus acute Hypoxia acute [facility] Work Phone: Evaluation note* Diagnosis Onset Date Resolution Status CAD (coronary artery disease), jamul coronary artery acute Essential hypertension acute 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 CAD (coronary artery disease), jamul coronary artery acute Essential hypertension acute Hypersomnolence acute 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 Epigastric pain acute GERD (gastroesophageal reflux disease) acute Acute dyspnea acute CHF (congestive heart failure) acute History of cardiomyopathy [place] History of coronary artery disease acute Hyperglycemia due to diabetes mellitus acute Hypoxia acute Acute dyspnea acute Bilateral pleural effusion a cute CHF (congestive heart failure) acute Hypoxia acute [facility] Work Phone: Evaluation note* Diagnosis Onset Date Resolution Status Acute dyspnea acute History of cardiomyopathy [place] History of coronary artery disease acute Hyperglycemia due to diabetes mellitus acute Hypoxia resolved Acute dyspnea acute Bilateral pleural effusion a cute Hypoxia resolved [facility] Work Phone: Evaluation note* Diagnosis Onset Date Resolution Status Acute dyspnea acute Bilateral pleural effusion a cute Hypoxia resolved [facility] Work Phone: Evaluation note* Diagnosis Closed 3-part fracture of proximal humerus, right, with routine healing, subsequent encounter- [facility] Diagnosis Onset Date Resolution Status Admit Date Ambulatory dysfunction acute Au jennifer 2024 8:09pm Fracture of pubic ramus acute A ugust 2024 8:09pm Hyperglycemia due to type 2 diabetes mellitus acute January 29, 8:09pm Overweight (BMI 25.0-29.9) acute January 29, 2025 8:09pm Severe pain acute January 29, 2025 8:09pm Sleep apnea acute January 29, 2025 8:09pm Tobacco abuse acute January 8:09pm [facility] Work Phone: History and physical note Author Rosaura Crane [facility] Note Date/Time September 07, 2024 10:0 0pm [facility] Medical Records Department [address] [place] [address] H&P Exam - Hospitalist 09/07/242133 MR#: [id number] Acct: [id number] Name: TRENTON JACKSON Rep #:[id number] : 1970 54 From: Rosaura Crane MD PCP: RUTH Lawrence, NON LICENSED NUCLEAR PLANT OPERATOR-C Statu s:ADM REHAN Location: [place] [address] HPI - General General Date of Admission: [...] which resolved who re- presents to the [facility] ED on 09/07/24 with history of intractable [...] upon requested evaluation of patient. [facility] Medical History L5 vertebral fracture ESBL (extended [...] (congestive heart failure) CAD (coronary artery disease), jamul coronary artery Home Medications ?Medication ?Instructions ?Recorded [...] IN 1 - 2 pump subdermal Q6H NV N FOR 02/14/24 Unknown History saltsable FEET [...] % (Auto) Cancelled, Lymph % (Auto) Cancelled, [place] % (Auto) Cancelled, Eos % (Auto) Cancelled, [...] Drop Cells Cancelled, Ovalocytes Cancelled, Stomatocytes Cancelled, Burris-Casey Bodies Cancelled, Hudson Cells Cancelled, Bite Cells Cancelled, Crenated Cell [...] 77.8 H, Lymph % (Auto) 14.5 L, [place] % (Auto) 5.0, Eos % (Auto) 1.7, [...] recommend MRI for further characterization. [facility] Assessment & Plan Assessment/Plan (1) Intractable nausea [...] which resolved who re- presents to the [facility] ED on 09/07/24 with history of intractable [...] 16 minutes. Charges/Coding Visit Charges Inpatient E&M: 38546 Init Hosp L3 Procedures Hospitalists Procedures: 07808 Advncd Care Plan 30 Min 09/07/24 2200 <Electronically signed by Rosaura Crane MD> Cosigner Signature (if applicable): CC: C NON LICENSED NUCLEAR PLANT OPERATOR-C Zohreh Mckeon; Dr. Rosaura Crane MD~ Signed [facility] Work Phone: Hospital Discharge instructions Additional Instructions Continue oral fluids. Zofran as needed. Take pain medicines as prescribed for your fracture. Future prescriptions for pain medicines need to be provided by your PCP or your specialist. Glucose is 402, normal gap, you are not in DKA. Take your medications at home. Follow-up with your doctor.[facility] Work Phone: Hospital Discharge instructions Additional Instructions Hip x-ray negative. Labs are stable. Follow-up with your doctor.[facility] Work Phone: Hospital Discharge instructions Additional Instructions I given you a month supply of gabapentin. You will take 300 mg twice a day for the first 3 days, then you may continue 300 mg 3 times a day for the remainder of the prescription. You need to follow-up with your PCP, I also gave you pain management.[facility] Work Phone: Hospital Discharge instructions Additional Instructions Plenty of fluids and rest. Slowly increase your diet as tolerated. Zofran as needed for nausea. You may swallow or let it dissolve under your tongue. Follow-up with your primary care provider if not improving or return if feeling worse or unable to keep fluids down. Tylenol for hip and knee pain. Follow-up if not improving.[facility] Work Phone: Hospital Discharge instructions Additional Instructions Continue your previous pain medications. Your postoperative wound does not appear to be acutely infected.[facility] Work Phone: Hospital Discharge instructions Additional Instructions Reviewed your MRI and patient recently. Stable L3 fracture, stable L5 fracture. Noted disc herniation L3-L4, this is likely culprit of your pain on your left leg. Continue your gabapentin 300 g 3 times a day as you have at home. starter cup powder mixer your oxycodone that was written on discharge to take as needed. Use Zofran as needed. Follow-up with pain management and orthopedic spine for outpatient evaluation. Monitor your glucose with your insulin.[facility] Work Phone: Hospital Discharge instructions Additional Instructions Workup negative for DKA. continue toAvoid marijuana use. Use your nausea medicines as needed. Follow-up was given.[facility] Work Phone: Hospital Discharge instructionsAdditional Instructions You were given IV fluids and insulin to treat your high blood sugar. I think the pain you have in your legs is neuropathy. This means it is nerve pain. It is treated with medications like gabapentin. I recommend you talk to your prescribing doctor for further care. [facility] Work Phone: Reason for referral (narrative)* Consultation (Routine) - Pending Review Specialty Diagnoses / Procedures Referred By Contac t Referred To Contact Physical Therapy Diagnoses Closed 3-part fracture of proximal humerus, right, with routine healing, subsequent encounter Procedures [place] OFFICE/OUTPATIENT NEW HIGH MDM 60-74 MINUTES Jerry Jones PA-C [address] [address] Referral ID Status Reason Start Date Expiration Date Visits Requested Visits Authorized [id number] Pending Review Specialty Services Required 06/08/2022 12/05/2022 99 99 [facility] for referral (narrative)No reason for referral information availableWFulton [facility] Work Phone: Summary Purpose Family History [...] Will No March 27 10:33am Power of Costume Draper No March 27, 2022 10:33am Advance Directive Response Recorded Date/ Time Advance Directives No February 01, 2016 5:21am Living Will No April 17 022 4:47pm Power of Costume Draper No April 17, 2022 4:47pm Advance Directive Response Recorded Date/ Time Advance Directives No February 01, 2016 5:21am Living Will No April 18 022 3:36pm Power of Costume Draper No April 18, 2022 3:36pm Advance Directive Response Recorded Date/ Time Advance Directives No February 01, 2016 5:21am Living Will No May 09 9:47pm Power of Costume Draper No May 09, 2022 9:47pm Advance Directive Response Recorded Date/ Time Advance Directives No February 01, 2016 5:21am Living Will No May 19, 2 022 5:31pm Power of Costume Draper No May 19, 2022 5:31pm Advance Directive Response Recorded Date/ Time Advance Directives No February 01, 2016 5:21am Living Will No July 25, 2 023 9:18am Power of Costume Draper No July 25, 2022 9:18am Advance Directive Response Recorded Date/ Time Advance Directives No February 01, 2016 5:21am Living Will No August 03, 2022 12:21pm Power of Costume Draper No August 03 12:21pm Advance Directive Response Recorded Date/ Time Advance Directives No August 10 7:07am Living Will No August 10, 2022 7:07am Power of Costume Draper No August 10 7:07am Advance Directive Response Recorded Date/ Time Advance Directives No August 10 8:07am Living Will No August 14, 2022 1:53pm Power of Costume Draper No August 14 1:53pm Advance Directive Response Recorded Date/ Time Advance Directives No August 10 8:07am Living Will No August 30, 2022 4:44pm Power of Costume Draper No August 30 4:44pm Advance Directive Response Recorded Date/ Time Advance Directives No August 10 8:07am Living Will No September 05, 2022 12:31pm Power of Costume Draper No September 05 12:31pm Advance Directive Response Recorded Date/ Time Advance Directives No August 10 8:07am Living Will No September 09, 2022 7:25pm Power of Costume Draper No September 09 7:25pm Advance Directive Response Recorded Date/ Time Advance Directives No August 10 8:07am Living Will No September 11, 2022 3:01pm Power of Costume Draper No September 11 3:01pm Advance Directive Response Recorded Date/ Time Advance Directives No August 10 8:07am Living Will No September 18, 2022 2:32pm Power of Costume Draper No September 18 2:32pm Advance Directive Response Recorded Date/ Time Advance Directives No August 10 8:07am Living Will No October 01, 2022 11:14am Power of Costume Draper No October 01 11:14am Advance Directive Response Recorded Date/ Time Advance Directives No August 10 8:07am Living Will No January 01, 2023 12:13pm Power of Costume Draper No January 01 12:13pm Advance Directive Response Recorded Date/ Time Advance Directives No August 10 8:07am Living Will No January 01, 2023 5:09pm Power of Costume Draper No January 01 5:09pm Advance Directive Response Recorded Date/ Time Advance Directives No August 10 8:07am Living Will No February 02, 2 023 11:25am Power of Costume Draper No February 02, 2023 11:25am Advance Directive Response Recorded Date/ Time Advance Directives No August 10 8:07am Living Will No February 02, 2 023 8:41pm Power of Costume Draper No February 02, 2023 8:41pm Advance Directive Response Recorded Date/ Time Advance Directives No August 10 7:07am Living Will No February 02, 2 023 7:41pm Power of Costume Draper No February 02, 2023 7:41pm Advance Directive Response Recorded Date/ Time Advance Directives No August 10 7:07am Living Will No May 03, 2 023 1:37pm Power of Costume Draper No May 03, 2023 1:37pm Advance Directive Response Recorded Date/ Time Advance Directives No August 10 7:07am Living Will No May 03, 2 023 5:41pm Power of Costume Draper No May 03, 2023 5:41pm Advance Directive Response Recorded Date/ Time Advance Directives No August 10 7:07am Living Will No May 22, 2 023 2:33pm Power of Costume Draper No May 22, 2023 2:33pm Advance Directive Response Recorded Date/ Time Advance Directives No August 10 7:07am Living Will No June 13 3:00am Power of Costume Draper No June 13, 2023 3:00am Advance Directive Response Recorded Date/ Time Advance Directives No August 10 7:07am Living Will No June 19 9:35am Power of Costume Draper No June 19, 2023 9:35am Advance Directive Response Recorded Date/ Time Advance Directives No August 10 8:07am Living Will No September 02, 2023 7:42am Power of Costume Draper No September 01 7:42am Date Activated Date [...] October 15, 2023 5 :10pm Power of Costume Draper No October 15, 2023 5:10pm Advance Directive Response Recorded Date/ Time Living Will No April 25 024 5:40pm Do you have a Healthcare Power of Costume Draper? No April 25, 2024 5:40pm Living Will No June 29 10:04pm Do you have a Healthcare Power of Costume Draper? No June 29, 2024 10:04pm Living Will No August 26, 2024 10:15am Do you have a Healthcare Power of Costume Draper? No August 26, 2024 10:15am Living Will No August 01 025 2:53pm Do you have a Healthcare Power of Costume Draper? No August 01, 2024 2:53pm Advance Directives No August 10 8:07am Advance Directive Response Recorded Date/ Time Living Will No June 29 10:04pm Do you have a Healthcare Power of Costume Draper? No June 29, 2024 10:04pm Living Will No August 26, 2024 8:30pm Do you have a Healthcare Power of Costume Draper? No August 26, 2024 8:30pm Living Will No August 01 025 2:53pm Do you have a Healthcare Power of Costume Draper? No August 01, 2024 2:53pm Advance Directives No August 10 8:07am Advance Directive Response Recorded Date/ Time Living Will No June 29 10:04pm Do you have a Healthcare Power of Costume Draper? No June 29, 2024 10:04pm Living Will No August 26, 2024 8:30pm Do you have a Healthcare Power of Costume Draper? No August 26, 2024 8:30pm Living Will No August 01, 2 025 2:53pm Do you have a Healthcare Power of Costume Draper? No August 01, 2024 2:53pm Living Will No September 05, 2024 10:31am Do you have a Healthcare Power of Costume Draper? No September 05, 2024 10:31am Advance Directives No August 10 8:07am Advance Directive Response Recorded Date/ Time Living Will No June 29 10:04pm Do you have a Healthcare Power of Costume Draper? No June 29, 2024 10:04pm Living Will No August 26, 2024 8:30pm Do you have a Healthcare Power of Costume Draper? No August 26, 2024 8:30pm Living Will No September 07, 2024 3:55pm Do you have a Healthcare Power of Costume Draper? No September 07, 2024 3:55pm Living Will No August 01, 2 025 2:53pm Do you have a Healthcare Power of Costume Draper? No August 01, 2024 2:53pm Living Will No September 05, 2024 10:31am Do you have a Healthcare Power of Costume Draper? No September 05, 2024 10:31am Advance Directives No August 10 8:07am Advance Directive Response Recorded Date/ Time Living Will No June 29 10:04pm Do you have a Healthcare Power of Costume Draper? No June 29, 2024 10:04pm Living Will No August 26, 2024 8:30pm Do you have a Healthcare Power of Costume Draper? No August 26, 2024 8:30pm Living Will No September 07, 2024 10:21pm Do you have a Healthcare Power of Costume Draper? No September 07, 2024 10:21pm Living Will No August 01, 2 025 2:53pm Do you have a Healthcare Power of Costume Draper? No August 01, 2024 2:53pm Living Will No September 05, 2024 10:31am Do you have a Healthcare Power of Costume Draper? No September 05, 2024 10:31am Advance Directives No August 10 8:07am Advance Directive Response Recorded Date/ Time Living Will No June 29 10:04pm Do you have a Healthcare Power of Costume Draper? No June 29, 2024 10:04pm Living Will No August 26, 2024 8:30pm Do you have a Healthcare Power of Costume Draper? No August 26, 2024 8:30pm Living Will No September 07, 2024 10:21pm Do you have a Healthcare Power of Costume Draper? No September 07, 2024 10:21pm Living Will No September 21, 2024 12:25pm Do you have a Healthcare Power of Costume Draper? No September 21, 2024 12:25pm Living Will No August 01 2:53pm Do you have a Healthcare Power of Costume Draper? No August 01, 2024 2:53pm Living Will No September 05, 2024 10:31am Do you have a Healthcare Power of Costume Draper? No September 05, 2024 10:31am Advance Directives No August 10 8:07am Advance Directive Response Recorded Date/ Time Living Will No June 29 10:04pm Do you have a Healthcare Power of Costume Draper? No June 29, 2024 10:04pm Living Will No August 26, 2024 8:30pm Do you have a Healthcare Power of Costume Draper? No August 26, 2024 8:30pm Living Will No September 07, 2024 10:21pm Do you have a Healthcare Power of Costume Draper? No September 07, 2024 10:21pm Living Will No September 21, 2024 12:25pm Do you have a Healthcare Power of Costume Draper? No September 21, 2024 12:25pm Do you have a Healthcare Power of Costume Draper? No September 29, 2024 10:26am Living Will No August 01 2:53pm Do you have a Healthcare Power of Costume Draper? No August 01, 2024 2:53pm Living Will No September 05, 2024 10:31am Do you have a Healthcare Power of Costume Draper? No September 05, 2024 10:31am Advance Directives No August 10 8:07am Advance Directive Response Recorded Date/ Time Living Will No August 26, 2024 8:30pm Do you have a Healthcare Power of Costume Draper? No August 26, 2024 8:30pm Living Will No September 07, 2024 10:21pm Do you have a Healthcare Power of Costume Draper? No September 07, 2024 10:21pm Living Will No September 21, 2024 12:25pm Do you have a Healthcare Power of Costume Draper? No September 21, 2024 12:25pm Do you have a Healthcare Power of Costume Draper? No September 29, 2024 10:26am Living Will No September 05, 2024 10:31am Do you have a Healthcare Power of Costume Draper? No September 05, 2024 10:31am Do you have a Healthcare Power of Costume Draper? No December 12, 2024 4:18pm Advance Directives No August 10 8:07am Advance Directive Response Recorded Date/ Time Do you have a Healthcare Power of Costume Draper? No December 12, 2024 4:18pm Do you have a Healthcare Power of Costume Draper? No January 29, 2025 3:44pm Advance Directives No August 10 8:07am Advance Directive Response Recorded Date/ Time Do you have a Healthcare Power of Costume Draper? No December 12, 2024 4:18pm Do you have a Healthcare Power of Costume Draper? No January 29, 2025 9:51pm Advance Directives No August 10 8:07am Hospital Course Note HNO ID: [id number] Author: Paige Handy Service: Hospital Medicine Author Type: Physician Type: [...] (more content not included)... Note HNO ID: [id number] Author: Rosi Morrow Service: Hospital Medicine Author [...] Team Members: Treatment Team: Attending Provider: Fredo oMrrow Consulting: Jasvir Kumar MY CONDITION AT DISCHARGE: Sta (more content not included)... Note HNO ID: [id number] Author: Maria Isabel Sherman Service: Clinical Cardiology [...] Providers: Provider RoleProvider Name ReferringCorrect Info, Needed AttendingAl-Quang Lou PrimaryRequired, No Pcp Note Recipients: Correct Info, Needed, MD Required, No Pcp, MD Discharge: Summary: Admission Date: .29-Sep-2019 20:16:00 Discharge Date: 30-Sep-2019 Attending Physician at Discharge: Sheila Goodson Admission Reason: Chest Pain Final Discharge Diagnoses: pleuritic chest pain likely 2/2 herpes zoster Procedures: none Condition at Discharge: Satisfactory Disposition at Discharge: .Home Vital Signs: T [id number] [id number]% Date/Time09/29 11: 11: 11: 11: 11:35 Range(36.1C [...] not included)... Procedure Findings Note HNO ID: [id number] Author: Maria Isabel Sherman Service: Clinical Cardiology [...] CONSTIPATION Hospital FU POSSIBLE INTERVENTION POSSIBLE INTERVENTION Reason for Visit [...] Congestive heart failure Congestive heart failure EST ([facility]) 2 wk fu per LOG BUYER G47.10 Reason for Visit Chest pain Pleural effusion Bilateral pleural effusion Acute exacerbation of CHF (congestive heart failure) Chest pain Hypoxia CAD (coronary artery disease), jamul coronary artery Essential hypertension Ischemic cardiomyopathy CAD (coronary artery disease), jamul coronary artery Essential hypertension Hypersomnolence Ischemic cardiomyopathy Chief Complaint CHF, PLEURITIC CHEST PAIN CHF, PLEURITIC CHEST PAIN CHF, PLEURITIC CHEST PAIN CHF, PLEURITIC CHEST PAIN CHF Congestive heart failure Congestive heart failure EST ([facility]) 2 wk fu per LOG BUYER G47.10 Epigastric Pain/Recurrent Vomiting Reason for Visit Chest pain Pleural effusion Bilateral pleural effusion Acute exacerbation of CHF (congestive heart failure) Chest pain Hypoxia CAD (coronary artery disease), jamul coronary artery Essential hypertension Ischemic cardiomyopathy CAD (coronary artery disease), jamul coronary artery Essential hypertension Hypersomnolence Ischemic cardiomyopathy Chief Complaint CHF, PLEURITIC CHEST PAIN CHF, PLEURITIC CHEST PAIN CHF Congestive heart failure Congestive heart failure EST ([facility]) 2 wk fu per LOG BUYER G47.10 Epigastric Pain/Recurrent Vomiting CHF EXACERBATION Reason for Visit Chest pain Pleural effusion Bilateral pleural effusion Acute exacerbation of CHF (congestive heart failure) Chest pain Hypoxia CAD (coronary artery disease), jamul coronary artery Essential hypertension Ischemic cardiomyopathy CAD (coronary artery disease), jamul coronary artery Essential hypertension Hypersomnolence Ischemic cardiomyopathy Epigastric pain GERD (gastroesophageal reflux disease) Acute dyspnea CHF (congestive heart failure) History of cardiomyopathy History of coronary artery disease Hyperglycemia due to diabetes mellitus Hypoxia Chief Complaint CHF Congestive heart failure Congestive heart failure EST ([facility]) 2 wk fu per LOG BUYER G47.10 Epigastric Pain/Recurrent Vomiting CHF EXACERBATION CHF EXACERBATION CHF EXACERBATION CHF EXACERBATION CHF EXACERBATION CHF EXACERBATION CHF EXACERBATION CHF EXACERBATION Reason for Visit Bilateral pleural ef fusion Acute exacerbation of CHF (congestive heart failure) Chest pain Hypoxia CAD (coronary artery disease), jamul coronary artery Essential hypertension Ischemic cardiomyopathy CAD (coronary artery disease), jamul coronary artery Essential hypertension Hypersomnolence Ischemic cardiomyopathy Epigastric pain GERD (gastroesophageal reflux disease) Acute dyspnea CHF (congestive heart failure) History of cardiomyopathy History of coronary artery disease Hyperglycemia due to diabetes mellitus Hypoxia Chief Complaint CHF Congestive heart failure Congestive heart failure EST ([facility]) 2 wk fu per LOG BUYER G47.10 Epigastric Pain/Recurrent Vomiting CHF EXACERBATION CHF EXACERBATION CHF EXACERBATION CHF EXACERBATION CHF EXACERBATION CHF EXACERBATION CHF EXACERBATION CHF EXACERBATION foot pain Reason for Visit Bilateral pleural ef fusion Acute exacerbation of CHF (congestive heart failure) Chest pain Hypoxia CAD (coronary artery disease), jamul coronary artery Essential hypertension Ischemic cardiomyopathy CAD (coronary artery disease), jamul coronary artery Essential hypertension Hypersomnolence Ischemic cardiomyopathy Epigastric pain GERD (gastroesophageal reflux disease) Acute dyspnea CHF (congestive heart failure) History of cardiomyopathy History of coronary artery disease Hyperglycemia due to diabetes mellitus Hypoxia Chief Complaint EST ([facility]) 2 wk fu per LOG BUYER G47.10 Epigastric Pain/Recurrent Vomiting CHF EXACERBATION CHF EXACERBATION CHF EXACERBATION CHF EXACERBATION CHF EXACERBATION CHF EXACERBATION CHF EXACERBATION CHF EXACERBATION foot pain n/v ACUTE ON CHRONIC HFREF Reason for Visit CAD (coronary artery disease), jamul coronary artery Essential hypertension Ischemic cardiomyopathy CAD (coronary artery disease), jamul coronary artery Essential hypertension Hypersomnolence Ischemic cardiomyopathy Epigastric pain GERD (gastroesophageal reflux disease) Acute dyspnea CHF (congestive heart failure) History of cardiomyopathy History of coronary artery disease Hyperglycemia due to diabetes mellitus Hypoxia Acute dyspnea Bilateral pleural effusion CHF (congestive heart failure) Hypoxia Chief Complaint EST ([facility]) 2 wk fu per LOG BUYER G47.10 Epigastric Pain/Recurrent Vomiting CHF EXACERBATION CHF EXACERBATION CHF EXACERBATION CHF EXACERBATION CHF EXACERBATION CHF EXACERBATION CHF EXACERBATION CHF EXACERBATION foot pain n/v ACUTE ON CHRONIC HFREF ACUTE ON CHRONIC HFREF ACUTE ON CHRONIC HFREF ACUTE ON CHRONIC HFREF ACUTE ON CHRONIC HFREF Reason for Visit CAD (coronary artery disease), jamul coronary artery Essential hypertension Ischemic cardiomyopathy CAD (coronary artery disease), jamul coronary artery Essential hypertension Hypersomnolence Ischemic cardiomyopathy Epigastric pain GERD (gastroesophageal reflux disease) Acute dyspnea CHF (congestive heart failure) History of cardiomyopathy History of coronary artery disease Hyperglycemia due to diabetes mellitus Hypoxia Acute dyspnea Bilateral pleural effusion CHF (congestive heart failure) Hypoxia Chief Complaint EST ([facility]) 2 wk fu per LOG BUYER G47.10 Epigastric Pain/Recurrent Vomiting CHF EXACERBATION CHF EXACERBATION CHF EXACERBATION CHF EXACERBATION CHF EXACERBATION CHF EXACERBATION CHF EXACERBATION CHF EXACERBATION foot pain n/v ACUTE ON CHRONIC HFREF ACUTE ON CHRONIC HFREF ACUTE ON CHRONIC HFREF ACUTE ON CHRONIC HFREF ACUTE ON CHRONIC HFREF fall Reason for Visit CAD (coronary artery disease), jamul coronary artery Essential hypertension Ischemic cardiomyopathy CAD (coronary artery disease), jamul coronary artery Essential hypertension Hypersomnolence Ischemic cardiomyopathy [...] effusion Hypoxia Chief Complaint fall [facility] WORK HIP PAIN Chief Complaint Admit [...] 2024 1:45pm PERIPHERAL ARTERIAL CRITICAL STENOSIS [place] TH EXTREME August 26, 2024 8:03pm PERIPHERAL ARTERIAL [...] 2024 7:05am PERIPHERAL ARTERIAL CRITICAL STENOSIS [place] [facility] August 27, 2024 7:25am PERIPHERAL ARTERIAL CRITICAL STENOSIS [place] [facility] August 28, 2024 5:55pm PERIPHERAL ARTERIAL CRITICAL STENOSIS [place] EXTREME August 29, 2024 9:45am PERIPHERAL ARTERIAL CRITICAL STENOSIS [place] EXTREME August 30, 2024 3:28pm PERIPHERAL ARTERIAL CRITICAL STENOSIS [place] [facility] August 31, 2024 8:54am PERIPHERAL ARTERIAL CRITICAL STENOSIS [place] [facility] September 01, 2024 8:19am PERIPHERAL ARTERIAL [...] 01, 2024 1:45pm PERIPHERAL ARTERIAL CRITICAL STENOSIS [facility] August 26, 2024 8:03pm PERIPHERAL ARTERIAL CRITICAL STENOSIS [facility] August 27, 2024 7:05am PERIPHERAL ARTERIAL CRITICAL STENOSIS [facility] August 27, 2024 7:25am PERIPHERAL ARTERIAL CRITICAL STENOSIS [facility] August 28, 2024 5:55pm PERIPHERAL ARTERIAL CRITICAL STENOSIS [facility] August 29, 2024 9:45am PERIPHERAL ARTERIAL CRITICAL STENOSIS [facility] August 30, 2024 3:28pm PERIPHERAL ARTERIAL CRITICAL STENOSIS [facility] August 31, 2024 8:54am PERIPHERAL ARTERIAL CRITICAL STENOSIS [facility] September 01, 2024 8:19am PERIPHERAL ARTERIAL CRITICAL STENOSIS [facility] September 02, 2024 7:51am n/v/d, [...] 27, 2024 7:25am PERIPHERAL ARTERIAL CRITICAL STENOSIS [facility] August 28, 2024 5:55pm PERIPHERAL ARTERIAL CRITICAL STENOSIS [facility] August 29, 2024 9:45am PERIPHERAL ARTERIAL CRITICAL STENOSIS [facility] August 30, 2024 3:28pm PERIPHERAL ARTERIAL CRITICAL STENOSIS [facility] August 31, 2024 8:54am PERIPHERAL ARTERIAL CRITICAL STENOSIS [facility] September 01, 2024 8:19am PERIPHERAL ARTERIAL CRITICAL STENOSIS [facility] September 02, 2024 7:51am n/v/d, [...] 01, 2024 1:45pm PERIPHERAL ARTERIAL CRITICAL STENOSIS EXTREME August 26, 2024 8:03pm PERIPHERAL ARTERIAL CRITICAL STENOSIS [place] EXTREME August 27, 2024 7:05am PERIPHERAL ARTERIAL CRITICAL STENOSIS [place] EXTREME August 27, 2024 7:25am PERIPHERAL ARTERIAL CRITICAL STENOSIS [place] [facility] August 28, 2024 5:55pm PERIPHERAL ARTERIAL CRITICAL STENOSIS EXTREME August 29, 2024 9:45am PERIPHERAL ARTERIAL CRITICAL STENOSIS [place] [facility] August 30, 2024 3:28pm PERIPHERAL ARTERIAL CRITICAL STENOSIS [place] EXTREME August 31, 2024 8:54am PERIPHERAL ARTERIAL CRITICAL STENOSIS [place] [facility] September 01, 2024 8:19am PERIPHERAL ARTERIAL [...] Complaint Admit Date PERIPHERAL ARTERIAL CRITICAL STENOSIS EXTREME August 26, 2024 8:03pm PERIPHERAL ARTERIAL CRITICAL STENOSIS EXTREME August 27, 2024 7:05am PERIPHERAL ARTERIAL CRITICAL STENOSIS EXTREME August 27, 2024 7:25am PERIPHERAL ARTERIAL CRITICAL STENOSIS EXTREME August 28, 2024 5:55pm PERIPHERAL ARTERIAL CRITICAL STENOSIS [place] [facility] August 29, 2024 9:45am PERIPHERAL ARTERIAL [...] vomiting September 7:01pm Chief Complaint Admit Date blister December 12, 2024 1:08 pm RIGHT PUBLIC FRATURES WITH SEVERE PAIN A ND January 29, 2025 8:09pm Reason for Visit Admit Date Ambulatory dysfunction January 29, 2025 8:09pm Fracture of pubic ramus January 29 8:09pm Hyperglycemia due to type 2 diabetes ewelina litus January 29, 2025 8:09pm Overweight (BMI 25.0-29.9) January 29, 2025 8:09pm Severe pain January 29, 2025 8: 09pm Sleep apnea January 29, 2025 8: 09pm Tobacco abuse January 29, 2025 8: 09pm Chief Complaint Admit Date blister December 12, 2024 1:08 pm RIGHT PUBLIC FRATURES WITH SEVERE PAIN A ND January 29, 2025 8:09pm RIGHT PUBLIC FRATURES WITH SEVERE PAIN A ND January 30, 2025 7:28am RIGHT PUBLIC FRATURES WITH SEVERE PAIN A ND January 31, 2025 9:19am RIGHT PUBLIC FRATURES WITH SEVERE PAIN A ND January 31, 2025 1:49pm RIGHT PUBLIC FRATURES WITH SEVERE PAIN A ND February 01, 2025 9:11am RIGHT PUBLIC FRATURES WITH SEVERE PAIN A ND February 02, 2025 12:11pm RIGHT PUBLIC FRATURES WITH SEVERE PAIN A ND February 03, 2025 10:19am RIGHT PUBLIC FRATURES WITH SEVERE PAIN A ND February 04, 2025 11:24am RIGHT PUBLIC FRATURES WITH SEVERE PAIN A ND February 05, 2025 1:32pm RIGHT PUBLIC FRATURES WITH SEVERE PAIN A ND February 06, 2025 10:43am RIGHT PUBLIC FRATURES WITH SEVERE PAIN A ND February 07, 2025 2:28pm RIGHT PUBLIC FRATURES WITH SEVERE PAIN A ND February 08, 2025 1:22pm RIGHT PUBLIC FRATURES WITH SEVERE PAIN A ND February 09, 2025 9:04am RIGHT PUBLIC FRATURES WITH SEVERE PAIN A ND February 10, 2025 9:59am RIGHT PUBLIC FRATURES WITH SEVERE PAIN A ND February 11, 2025 12:14pm Reason for Visit Admit Date Ambulatory dysfunction January 31, 2025 1:49pm Fracture of pubic ramus January 31 1:49pm Hyperglycemia due to type 2 diabetes ewelina litus January 31, 2025 1:49pm Overweight (BMI 25.0-29.9) January 31, 2025 1:49pm Severe pain January 31, 2025 1: 49pm Sleep apnea January 31, 2025 1: 49pm Tobacco abuse January 31, 2025 1: 49pm Additional Source Comments INFORMATION SOURCE (unrecogn ized section and content) DATE CREATED AUTHOR 07/24/2018 [facility] DATE CREATED AUTHOR AUTHOR'S ORGANIZ ATION 04/08/2019 [facility] DATE CREATED AUTHOR AUTHOR'S ORGANIZ ATION 08/28/2019 [facility] DATE CREATED AUTHOR AUTHOR'S ORGANIZ ATION 06/09/2020 [facility] DATE CREATED AUTHOR AUTHOR'S ORGANIZ ATION 06/09/2020 [facility] DATE CREATED AUTHOR AUTHOR'S ORGANIZ ATION 08/17/2021 [facility] DATE CREATED AUTHOR AUTHOR'S ORGANIZ ATION 05/06/2022 [facility] DATE CREATED AUTHOR AUTHOR'S ORGANIZ ATION 09/07/2022 [facility] ([place] DATE CREATED AUTHOR AUTHOR'S ORGANIZ ATION 05/30/2024 [facility] DATE CREATED AUTHOR AUTHOR'S ORGANIZ ATION 07/07/[address] [facility] [place] [place] [facility] DATE CREATED AUTHOR AUTHOR'S ORGANIZ ATION 09/14/2024 [facility] DATE CREATED AUTHOR AUTHOR'S ORGANIZ ATION 04/16/2025 [facility] <item> Privacy Markings (unrecogniz ed section and [...] alternate section No data available for this sectionGoals may be documented in an alternate section Care Teams (unrecognized sec tion and [...] Status: Active Member Role Status Dates Dr. Nathaly Lainez Primary Care Provider Active ROBERT HERNANDEZ [...] Lainez Primary Care Provider Active Zohreh Mckeon NON LICENSED NUCLEAR PLANT OPERATOR, NON LICENSED NUCLEAR PLANT OPERATOR-C Attending Provider Active Team Status: Inactive Member Role Status Dates Dr. Nathaly Lainez Primary Care Provider Active Dr. iVdal Mcneal MD Emergency Provider Active Team Status: Inactive Member Role Status Dates Dr. Nathaly Lainez Primary Care Provider Active Dr. Riccardo Hillman DO Emergency Provider Active Team Status: Active Member Role Status Dates Dr. Uziel Conteh MD Family Provider Active [facility] Primary Care Provider A ctive Team Status: Inactive Member Role Status Dates Dr. Nathaly Lainez Primary Care Provider, Referring P rovider Active Veda SALAZAR, PA Attending Provider Active Team Status: Active Member Role Status Dates Dr. Riccardo Ng MD Attending Provider, Referring Provider, Other Provider Active [facility] Primary Care Provider A ctive Team Status: Inactive Member Role Status Dates Dr. Nathaly Lainez Primary Care Provider Active Dr. Riccardo Hillman DO Attending Provider, Emergency P rasheed Active Team Status: Inactive Member Role Status Dates Dr. Nathaly Blakelyshana Primary Care Provider Active Dr. Ananda Coyle MD Emergency Provider Active Team Status: Inactive Member Role Status Dates Dr. Riccardo Ng MD Attending Provider, Referring Pro vider Active [facility] Primary Care Provider A ctive Team Status: Inactive Member Role Status Dates [facility] Primary Care Provider A ctive Dr. Roberto Black MD Emergency Provider Active Team Status: Inactive Member Role Status Dates [facility] Primary Care Provider, Referring Provider Active MARTIN Sheldon Attending Provider Active Team Status: Active Member Role Status Dates [facility] Primary Care Provider A ctive Dr. Riccardo Ng MD Attending Provider Active Team Status: Inactive Member Role Status Dates Dr. Nathaly Lainez Primary Care Provider Active Dr. Ananda Coyle MD Attending Provider, Emergency Pro vider Active Team Status: Inactive Member Role Status MARTIN Sheldon Attending Provider, Referrin g Provider Active [facility] Primary Care Provider A ctive Team Status: Inactive Member Role Status Dates [facility] Primary Care Provider A ctive Dr. Roberto Black MD Attending Provider, Emergency Provider Active Team Status: Active Member Role Status Dates [facility] Primary Care Provider A ctchristianne Rawls MD Emergency Provider Active Dr. Jeison Forde DPM Admit Provider, Attending Pro vider Active Dr. Sabina Rosenberg DO Other Provider Active Team Status: Active Member Role Status Dates [facility] Primary Care Provider A ctive Jeremiah Rawls MD Emergency Provider Active Dr. Jeison Forde DPM Admit Provider, Other Provide r Active Dr. Sabina Rosenberg DO Attending Provider, Other Pro vider Active Team Status: Active Member Role Status Dates [facility] Primary Care Provider A ctive Dr. Sanjiv Alcantar MD Attending Provider Activ e Team Status: Inactive Member Role Status Dates [facility] Primary Care Provider A ctive Jeremiah Rawls MD Emergency Provider Active Dr. Jeison Forde , DPM Admit Provider, Attending Pro vider Active Dr. Sabina Rosenberg DO Other Provider Active Team Status: Active Member Role Status Dates [facility] Primary Care Provider A ctive Jeremiah Rawls MD Emergency Provider Active Dr. Jeison Forde , DPM Admit Provider, Referring Provider, Other Provider Active Dr. Sabina Rosenberg DO Attending Provider, Other Pro vider Active Team Status: Inactive Member Role Status Dates [facility] Primary Care Provider A ctive Dr. Yvette Hanley DO Emergency Provider Active Team Status: Active Member Role Status Dates [facility] Primary Care Provider A ctive Dr. Riccardo Ng MD Attending Provider Active MARTIN Sheldon Referring Provider Active Team Status: Active Member Role Status Dates [facility] Primary Care Provider A ctive Veda SALAZAR PA Attending Provider, Referrin g Provider Active Team Status: Inactive Member Role Status Dates [facility] Primary Care Provider A ctive Dr. Griselda Christina MD Emergency Provider Active Team Status: Inactive Member Role Status Dates [facility] Primary Care Provider A ctive MARTIN Sheldon Attending Provider, Referrin g Provider Active Team Status: Inactive Member Role Status [facility] Primary Care Provider A ctive Dr. Yvette Hanley DO Attending Provider, Emergency Pro vider Active Team Status: Inactive Member Role Status Dates [facility] Primary Care Provider A ctive Dr. Griselda Christina MD Attending Provider, Emergency Provider Active Team Status: Inactive Member Role Status Dates [facility] Primary Care Provider A ctive Dr. Zack Card DO Emergency Provider Active Team Status: Inactive Member Role Status [facility] Primary Care Provider A ctive Dr. Zack Card DO Attending Provider, Emergency Provide r Active Team Status: Inactive Member Role Status [facility] Primary Care Provider A ctive Dr. Ananda Cyole MD Referring Provider, Emergency Pro vider Active Team Status: Inactive Member Role Status Dates [facility] Primary Care Provider, Referring P rovider Active MARTIN Horn Attending Provider Active Team Status: Inactive Member Role Status Dates [facility] Primary Care Provider, Referring Provider Active MARTIN Horn Attending Provider Active Team Status: Active Member Role Status Dates [facility] Primary Care Provider A ctive Dr. Riccardo Ng MD Attending Provider Active MARTIN Horn Referring Provider Active Team Status: Active Member Role Status Dates [facility] Primary Care Provider A ctive Dr. Riccardo Ng MD Attending Provider Active Dr. Yvette Hanley DO Referring Provider Active Team Status: Inactive Member Role Status Dates MARTIN Horn Attending Provider, Referring Provider Active [facility] Primary Care Provider A ctive Team Status: Inactive Member Role Status Dates [facility] Primary Care Provider A ctive MARTIN Horn Attending Provider, Referring Provider Active Team Status: Inactive Member Role Status Dates [facility] Primary Care Provider A ctive Dr. Ananda Coyle MD Attending Provider, Referring Provider, Emergency Provider Active Team Status: Active Member Role Status Dates [facility] Primary Care Provider A ctive Dr. Yvette Hanley DO Emergency Provider Active Dr. Sabina Rosenberg DO Admit Provider, Attending Pro vider Active Team Status: Active Member Role Status [facility] Primary Care Provider A ctive Dr. Yvette Hanley DO Emergency Provider Active Dr. Sabina Rosenberg DO Admit Provider, Attending Provider, Other Provider Active Team Status: Inactive Member Role Status Dates [facility] Primary Care Provider A ctive Dr. Yvette Hanley DO Emergency Provider Active Dr. Sabina Rosenberg DO Admit Provider, Attending Pro vider Active Team Status: Active Member Role Status Dates [facility] Primary Care Provider A ctive Dr. Zack Card DO Emergency Provider Active Dr. Brandon Adames MD Admit Provi dianelys, Attending Provider, Other Provider Active Team Status: Active Member Role Status Dates [facility] Primary Care Provider A ctive Dr. Zack Card , DO Emergency Provider Active Dr. Brandon Adames MD Admit Provider, Attending Provider Active Team Status: Inactive Member Role Status Dates [facility] Primary Care Provider A ctive Dr. Zack Card DO Emergency Provider Active Dr. Brandon Adames MD Admit Provider, Other Pro vider Active Dr. Sabina Rosenberg DO Attending Provider Active Team Status: Inactive Member Role Status [facility] Primary Care Provider, Referring Provider Active Dr. Alli Brito MD Attending Provider Active Team Status: Active Member Role Status Dates [facility] Primary Care Provider A ctive Dr. Zack Card , Emergency Provider Active Dr. Brandon Adames MD Admit Provider, Other Pro vider Active Dr. Sabina Rosenberg DO Attending Provider, Other Pro vider Active Team Status: Inactive Member Role Status [facility] Primary Care Provider, Referring Provider Active Juancarlos Pandey NON LICENSED NUCLEAR PLANT OPERATOR, NON LICENSED NUCLEAR PLANT OPERATOR-C Attending Provider Active Team Status: Inactive Member Role Status [facility] Primary Care Provider A ctive Juancarlos Pandey NON LICENSED NUCLEAR PLANT OPERATOR, NON LICENSED NUCLEAR PLANT OPERATOR-C Attending Provider, Referring Pro vider Active Team Status: Inactive Member Role Status [facility] Primary Care Provider, Referring Provider Active Dr. Lino Sousa MD Attending Provider Active Team Status: Inactive Member Role Status [facility] Primary Care Provider A ctive Dr. Lino Sousa MD Attending Provider, Referr ing Provider Active Team Status: Active Member Role Status [facility] Primary Care Provider A ctive Dr. Ananda Coyle MD Emergency Provider Active Dr. Lei Justin DO Admit Provider, Attending Provider Active Team Status: Active Member Role Status [facility] Primary Care Provider A ctive Dr. Ananda Coyle MD Emergency Provider Active Dr. Lei Justin DO Admit Provider, Other Pro vider Active Dr. Alli Brito MD Attending Provider, Other Provide r Active Dr. Brenda Posadas MD Other Provider Active Team Status: Active Member Role Status Dates [facility] Primary Care Provider A ctive Dr. Ananda Coyle MD Emergency Provider Active Dr. Lei Justin DO Admit Provider, Other Pro vider Active Dr. Alli Brito MD Other Provider Active Dr. Brenda Posadas MD Attending Provider, Other Provid er Active Team Status: Active Member Role Status Dates [facility] Primary Care Provider A ctive Dr. Ananda Coyle MD Emergency Provider Active Dr. Lei Jsutin , DO Admit Provider, Other Pro vider Active Dr. Alli Brito MD Other Provider Active Dr. Latricia Aaron MD Attending Provider, Other Provid er Active Dr. Brenda Posadas MD Other Provider Active Team Status: Inactive Member Role Status [facility] Primary Care Provider A ctive Dr. Ananda Coyle MD Emergency Provider Active Dr. Lei Justin , DO Admit Provider, Other Pro vider Active Dr. Alli Brito MD Other Provider Active Dr. Latricia Aaron MD Attending Provider Active Dr. Brenda Posadas MD Other Provider Active Team Status: Active Member Role Status [facility] Primary Care Provider A ctive Dr. Ananda Coyle MD Emergency Provider Active Dr. Lei Justin , DO Admit Provi dianelys, Referring Provider, Other Provider Active Dr. Alli Brito MD Attending Provider, Other Provide r Active Dr. Brenda Posadas MD Other Provider Active Team Status: Inactive Member Role Status [facility] Primary Care Provider A ctive Dr. Derek Paniagua MD Emergency Provider Active Team Status: Inactive Member Role Status [facility] Primary Care Provider A ctive Dr. Derek Paniagua MD Attending Provider, Emergency Provi dianelys Active Team Status: Active Member Role Status [facility] Primary Care Provider A ctive Dr. Riccardo Hillman , DO Emergency Provider Active Dr. Talisha Boykin MD Admit Provider, Attending Prov ider Active Team Status: Inactive Member Role Status [facility] Primary Care Provider A ctive Dr. Ananda Coyle MD Attending Provider, Emergency Pro vider Active Team Status: Active Member Role Status [facility] Primary Care Provider A ctive Dr. Riccardo Hillman , DO Emergency Provider Active Dr. Talisha Boykin MD Admit Provider, Other Provider Active Dr. Jeremy Alexander MD Attending Provider, Other Provi dianelys Active Team Status: Active Member Role Status [facility] Primary Care Provider A ctive Dr. Riccardo Hillman , DO Emergency Provider Active Dr. Talisha Boykin MD Admit Provider, Other Provider Active Dr. Jeremy Alexander MD Attending Provider, Other Provi dianelys Active Dr. Moody Gallagher , DPM Other Provider Active Team Status: Inactive Member Role Status Dates [facility] Primary Care Provider A ctive Dr. Riccardo Hillman , DO Emergency Provider Active Dr. Talisha Boykin MD Admit Provider, Other Provider Active Dr. Jeremy Alexander MD Attending Provider Active Dr. Moody Gallagher , ALEK Other Provider Active Team Status: Active Member Role Status Dates [facility] Primary Care Provider A ctive Dr. Riccardo Hillman , DO Emergency Provider Active Dr. Talisha Boykin MD Admit Provider, Attending Provider, Other Provider Active Dr. Jeremy Alexander MD Other Provider Active Team Status: Active Member Role Status Dates [facility] Primary Care Provider A ctive Patient Link Program Attending Provider, Referring Pro vider Active Team Status: Inactive Member Role Status Dates [facility] Primary Care Provider A ctive Dr. Ananda Coyle MD Emergency Provider Active Road Production General Manager Relationship Specialty Start Date End Date [facility] [address] [place] [address] PCP - General 09/02/23 Zohreh Mckeon NP [facility] [place] [address] Referring Family Medicine 10/18/22 Team Status: Inactive Member Role Status Dates [facility] Primary Care Provider A ctive Dr. Kaylie PEMBERTON MD Attending Provider Active Team Status: Active Member Role Status Dates [facility] Primary Care Provider A ctive Dr. Kaylie PEMBERTON MD Attending Provider Active Road Production General Manager Relationship Specialty Start Date End Date [facility] [address] [place] [address] PCP - General 09/02/23 Zohreh Mckeon NP [facility] [place] [address] Referring Family Medicine 10/18/22 Team Status: Active Member Role Status Dates [facility] Primary Care Provider A ctive Dr. Kaylie PEMBERTON MD Attending Provider, Referring Provider Active Team Status: Inactive Member Role Status Dates [facility] Primary Care Provider A ctive Jeremiah Rawls MD Emergency Provider Active Road Production General Manager Relationship Specialty Start Date End Date [facility], [facility] [address] [place] [id number] PCP - General 09/02/23 Zohreh Mckeon NP [address] [place] [address] Referring Family Medicine 10/18/22 [address] Production General Manager Relationship Specialty Start Date End Date [facility], [facility] [address] [place] [address] PCP - General 09/02/23 Zohreh Mckeon NP [address] [place] [id number] Referring Family Medicine 10/18/22 [address] Production General Manager Relationship Specialty Start Date End Date [facility], [facility] [address] [place] [address] PCP - General 09/02/23 Zohreh Mckeon NP [address] [place] [address] Referring Family Medicine 10/18/22 [address] Production General Manager Relationship Specialty Start Date End Date [facility], [facility] [address] [place] [address] PCP - General 09/02/23 Zohreh Mckeon NP [address] [place] [id number] Referring Family Medicine 10/18/22 Road Production General Manager Relationship Specialty Start Date End Date No, Pcp [address] [place] [address] PCP - General 05/02/22 Team Status: Active Member Role Status Dates Zohreh Mckeon VSC, NON LICENSED NUCLEAR PLANT OPERATOR-C Primary Care Provider Activ e Team Status: Inactive Member Role Status Dates [facility] Primary Care Provider Active Start: April 252023 End: April 29, 2024 Jeremiah Rawls MD Emergency Provider Active Star t: April 25, 2024 End: April 29, 2024 Dr. Nicole Trujillo , Admit Provider Active Start : April 25, 2024 End: April 29, 2024 Dr. Nicole Trujillo DO Other Provider Active Start : April 25, 2024 End: April 29, 2024 Dr. Jeremy Alexander MD Other Provider Active Sta rt: April 25, 2024 End: April 29, 2024 Dr. Talisha Boykin MD Attending Provider Active Start: April 25, 2024 End: April 29, 2024 Team Status: Active Member Role Status Dates [facility] Primary Care Provider Active Start: April 282023 Jeremiah Rawls MD Emergency Provider Active Star t: April 28, 2024 Dr. Nicole Trujillo DO Admit Provider Active Start : April 28, 2024 Dr. Nicole Trujillo DO Other Provider Active Start : April 28, 2024 Dr. Jeremy Aleaxnder MD Other Provider Active Sta rt: April 28, 2024 Dr. Talisha Boykin MD Attending Provider Active Start: April 28, 2024 Dr. Talisha Boykin MD Other Provider Active St art: April 28, 2024 Team Status: Active Member Role Status Dates [facility] Primary Care Provider Active Start: April 292023 [...] Team Status: Inactive Member Role Status Dates [facility] Primary Care Provider A ctive Start: June [...] Team Status: Active Member Role Status Dates [facility] Primary Care Provider A ctive Start: June [...] Team Status: Active Member Role Status Dates [facility] Primary Care Provider A ctive Start: July [...] Team Status: Active Member Role Status Dates [facility] Primary Care Provider A ctive Start: July [...] Team Status: Active Member Role Status Dates [facility] Primary Care Provider A ctive Start: July [...] Team Status: Inactive Member Role Status Dates [facility] Primary Care Provider A ctive Start: July [...] 05, 2024 End: July 05, 2024 Zohreh MIRANDA, NON LICENSED NUCLEAR PLANT OPERATOR-C Primary Care Provider Activ e Start: July 05, 2024 End: July 05, 2024 Team Status: Inactive Member Role Status Dates Dr. Nicole Trujillo DO Attending Provider Active S tart: July 06, 2024 End: July 06, 2024 Dr. Nicole Trujillo , Referring Provider Active S tart: July 06, 2024 End: July 06, 2024 Zohreh Mckeon RUTH, NON LICENSED NUCLEAR PLANT OPERATOR-C Primary Care Provider Activ e Start: July 06, 2024 End: July 06, 2024 Team Status: Inactive Member Role Status Dates Dr. Nicole Trujillo DO Attending Provider Active S tart: July 07, 2024 End: July 07, 2024 Dr. Nicole Trujillo DO Referring Provider Active S tart: July 07, 2024 End: July 07, 2024 Zohreh Terence MIRANDA, NON LICENSED NUCLEAR PLANT OPERATOR-C Primary Care Provider Activ e Start: July 07, 2024 End: July 07, 2024 Team Status: Inactive Member Role Status Dates Dr. Nicole Trujillo DO Attending Provider Active S tart: July 10, 2024 End: July 10, 2024 Dr. Nicole Trujillo DO Referring Provider Active S tart: July 10, 2024 End: July 10, 2024 Zohreh KINGGideon, NON LICENSED NUCLEAR PLANT OPERATOR-C Primary Care Provider Activ e Start: July 10, 2024 End: July 10, 2024 Team Status: Inactive Member Role Status Dates Zohreh KINGC, NON LICENSED NUCLEAR PLANT OPERATOR-C Primary Care Provider Activ e Start: July 11, 2024 End: July 11, 2024 Dr. Nicole Trujillo DO Attending Provider Active S tart: July 11, 2024 End: July 11, 2024 Dr. Nicole Trujillo DO Referring Provider Active S tart: July 11, 2024 End: July 11, 2024 Team Status: Inactive Member Role Status Dates Zohreh KINGC, NON LICENSED NUCLEAR PLANT OPERATOR-C Primary Care Provider Activ e Start: August 01, 2024 End: August 01, 2024 Dr. Riccardo Hillman DO Attending Provider Active Start: August 01, 2024 End: August 01, 2024 Dr. Riccardo Hillman , Emergency Provider Active Start: August 01, 2024 End: August 01, 2024 Team Status: Active Member Role Status Dates Zohreh Terence MIRANDA, NON LICENSED NUCLEAR PLANT OPERATOR-C Primary Care Provider Activ e Start: August 26, 2024 Dr. Riccardo Ng MD Attending Provider Active S tart: August 26, 2024 Team Status: Active Member Role Status Dates Zohreh Mckeon RUTH, NON LICENSED NUCLEAR PLANT OPERATOR-C Primary Care Provider Activ e Start: August 26, 2024 Dr. Vaughn Daugherty DO Emergency Provider Activ e Start: August 26, 2024 Dr. Brenda Posadas MD Admit Provider Active Star t: August 26, 2024 Dr. Brenda Posadas MD Attending Provider Active Start: August 26, 2024 Team Status: Inactive Member Role Status Dates Zohreh MIRANDA, NON LICENSED NUCLEAR PLANT OPERATOR-C Primary Care Provider Activ e Start: August 26, 2024 End: September 02, 2024 Dr. Vaughn Daugherty , DO Emergency [...] Active Member Role Status Dates Zohreh MIRANDA, NON LICENSED NUCLEAR PLANT OPERATOR-C Primary Care Provider Activ e Start: August [...] Active Member Role Status Dates Zohreh MIRANDA, NON LICENSED NUCLEAR PLANT OPERATOR-C Primary Care Provider Activ e Start: August 27, 2024 Dr. Vaughn Daugherty DO Emergency Provider Activ e Start: August 27, 2024 Dr. Brenda Posadas MD Admit Provider Active Star t: August 27, 2024 Dr. Brenda Posadas MD Other Provider Active Star t: August 27, 2024 Dr. Riccardo Ng MD Other Provider Active Start : August 27, 2024 Dr. Nicole Trujillo , DO Attending Provider Active S tart: August 27, 2024 Dr. Nicole Trujillo , DO Other Provider Active Start : August 27, 2024 Team Status: Active Member Role Status Dates Zohreh MIRANDA, NON LICENSED NUCLEAR PLANT OPERATOR-C Primary Care Provider Activ e Start: August [...] Active Member Role Status Dates Zohreh MIRANDA, NON LICENSED NUCLEAR PLANT OPERATOR-C Primary Care Provider Activ e Start: August [...] Active Member Role Status Dates Zohreh MIRANDA, NON LICENSED NUCLEAR PLANT OPERATOR-C Primary Care Provider Activ e Start: August 30, 2024 Dr. Vaughn Daugherty , DO Emergency Provider Activ e Start: August 30, 2024 Dr. Brenda Posadas MD Admit Provider Active Star t: August 30, 2024 Dr. Brenda Posadas MD Other Provider Active Star t: August 30, 2024 Dr. Nicole Trujillo , DO Attending Provider Active S tart: August 30, 2024 Dr. Nicole Trujillo , Other Provider Active Start : August 30, 2024 Dr. Riccardo Ng MD Other Provider Active Start : August 30, 2024 Team Status: Active Member Role Status Dates Zohreh Terence MIRANDA, NON LICENSED NUCLEAR PLANT OPERATOR-C Primary Care Provider Activ e Start: August 31, 2024 Dr. Vaughn Daugherty , Emergency Provider Activ e Start: August 31, 2024 Dr. Brenda Posadas MD Admit Provider Active Star t: August 31, 2024 Dr. Brenda Posadas MD Other Provider Active Star t: August 31, 2024 Dr. Nicole Trujillo , Attending Provider Active S tart: August 31, 2024 Dr. Nicole Trujillo , Other Provider Active Start : August 31, 2024 Dr. Riccardo Ng MD Other Provider Active Start : August 31, 2024 Team Status: Active Member Role Status Dates Zohrehdmitriy MIRANDA, NON LICENSED NUCLEAR PLANT OPERATOR-C Primary Care Provider Activ e Start: September 01, 2024 Dr. Vaguhn Daugherty DO Emergency Provider Activ e Start: [...] Active Member Role Status Dates Zohrehdmitriy MIRANDA, NON LICENSED NUCLEAR PLANT OPERATOR-C Primary Care Provider Activ e Start: September 01, 2024 Dr. Alli Brito MD Attending Provider Active S tart: September 01, 2024 Team Status: Active Member Role Status Dates Zohrehdmitriy KINGC, NON LICENSED NUCLEAR PLANT OPERATOR-C Primary Care Provider Activ e Start: September [...] Status: Active Member Role Status Dates Zohrehdmitriy KING, NON LICENSED NUCLEAR PLANT OPERATOR-C Primary Care Provider Activ e Start: August 26, 2024 Dr. Riccardo Ng MD Attending Provider Active S tart: August 26, 2024 Dr. Jeison Abrams , Referring Provider Active Start: August 26, 2024 Team Status: Active Member Role Status Dates Zohreh Terence MIRANDA, NON LICENSED NUCLEAR PLANT OPERATOR-C Primary Care Provider Activ e Start: August [...] Inactive Member Role Status Dates Zohreh Mckeon FERNANDO, NON LICENSED NUCLEAR PLANT OPERATOR-C Primary Care Provider Activ e Start: September 05, 2024 End: September 05, 2024 Dr. Zack Card , Emergency Provider Active Start : September 05, 2024 End: September 05, 2024 Team Status: Active Member Role Status Dates Zohreh Terence KING, NON LICENSED NUCLEAR PLANT OPERATOR-C Primary Care Provider Activ e Start: September 07, 2024 Dr. Davis Ibarra , Emergency Provider Active Start: September 07, 2024 Dr. Rosaura Crane MD Admit Provider Active St art: September 07, 2024 Dr. Rosaura Crane MD Attending Provider Active Start: September 07, 2024 Dr. Rosaura Crane MD Other Provider Active St art: September 07, 2024 Team Status: Inactive Member Role Status Dates Zohreh Mckeon RUTH, NON LICENSED NUCLEAR PLANT OPERATOR-C Primary Care Provider Activ e Start: September 05, 2024 End: September 05, 2024 Dr. Zack Card DO Attending Provider Active Start : September 05, 2024 End: September 05, 2024 Dr. Zack Card DO Emergency Provider Active Start : September 05, 2024 End: September 05, 2024 Team Status: Active Member Role Status Dates Zohreh Mckeon RUTH, NON LICENSED NUCLEAR PLANT OPERATOR-C Primary Care Provider Activ e Start: September [...] Member Role Status Dates Zohreh Terence MIRANDA, NON LICENSED NUCLEAR PLANT OPERATOR-C Primary Care Provider Activ e Start: September [...] Inactive Member Role Status Dates Zohreh Mckeon RUTH, NON LICENSED NUCLEAR PLANT OPERATOR-C Primary Care Provider Activ e Start: September [...] Active Member Role Status Dates Zohrehdmitriy MIRANDA, NON LICENSED NUCLEAR PLANT OPERATOR-C Primary Care Provider Activ e Start: September [...] Active Member Role Status Dates Zohreh MIRANDA, NON LICENSED NUCLEAR PLANT OPERATOR-C Primary Care Provider Activ e Start: September [...] Active Member Role Status Dates Zohreh MIRANDA, NON LICENSED NUCLEAR PLANT OPERATOR-C Primary Care Provider Activ e Start: September [...] Active Member Role Status Dates Zohreh KING, NON LICENSED NUCLEAR PLANT OPERATOR-C Primary Care Provider Activ e Start: September [...] Active Member Role Status Dates Zohreh MIRANDA, NON LICENSED NUCLEAR PLANT OPERATOR-C Primary Care Provider Activ e Start: September [...] Active Member Role Status Dates Zohreh MIRANDA, NON LICENSED NUCLEAR PLANT OPERATOR-C Primary Care Provider Activ e Start: September [...] Active Member Role Status Dates Zohreh MIRANDA, NON LICENSED NUCLEAR PLANT OPERATOR-C Primary Care Provider Activ e Start: September [...] Inactive Member Role Status Dates Zohreh MIRANDA, NON LICENSED NUCLEAR PLANT OPERATOR-C Primary Care Provider Activ e Start: September [...] Inactive Member Role Status Dates Zohreh MIRANDA, NON LICENSED NUCLEAR PLANT OPERATOR-C Primary Care Provider Activ e Start: September 21, 2024 End: September 21, 2024 Dr. Riccardo Hillman DO Emergency Provider Active Start: September 21, 2024 End: September 21, 2024 Team Status: Inactive Member Role Status Dates Zohreh MIRANDA, NON LICENSED NUCLEAR PLANT OPERATOR-C Primary Care Provider Activ e Start: September 21, 2024 End: September 21, 2024 Dr. Riccardo Hillman DO Attending Provider Active Start: September 21, 2024 End: September 21, 2024 Dr. Riccardo Hillman DO Emergency Provider Active Start: September 21, 2024 End: September 21, 2024 Team Status: Inactive Member Role Status Dates Zohreh MIRANDA, NON LICENSED NUCLEAR PLANT OPERATOR-C Primary Care Provider Activ e Start: September 29, 2024 End: September 29, 2024 Dr. Zack Card , Emergency Provider Active Start : September 29, 2024 End: September 29, 2024 Team Status: Active Member Role/Relationship Status Dates Zohreh KINGC, NON LICENSED NUCLEAR PLANT OPERATOR-C Primary Care Provider Activ e Team Status: Active Member Role/Relationship Status Dates Zohreh KINGC, NON LICENSED NUCLEAR PLANT OPERATOR-C Primary Care Provider Activ e Start: August 26, 2024 Dr. Riccardo Ng MD Attending Provider Active S tart: August 26, 2024 Dr. Jeison Abrams DO Referring Provider Active Start: August 26, 2024 Team Status: Inactive Member Role/Relationship Status Dates Zohreh MIRANDA, NON LICENSED NUCLEAR PLANT OPERATOR-C Primary Care Provider Activ e Start: August [...] End: September 02, 2024 Dr. Nicole Trujillo DO Other Provider Active Start : August 26, 2024 End: September 02, 2024 Team Status: Active Member Role/Relationship Status Dates Zohreh KINGC, NON LICENSED NUCLEAR PLANT OPERATOR-C Primary Care Provider Activ e Start: August [...] August 27, 2024 Dr. Nicole Trujillo , DO Other Provider Active Start : August 27, 2024 Team Status: Active Member Role/Relationship Status Dates Zohreh Mckeon [facility], NON LICENSED NUCLEAR PLANT OPERATOR-C Primary Care Provider Activ e Start: August 27, 2024 Dr. Vaughn Daugherty DO Emergency Provider Activ e Start: August 27, 2024 Dr. Brenda Posadas MD Admit Provider Active Star t: August 27, 2024 Dr. Brenda Posadas MD Other Provider Active Star t: August 27, 2024 Dr. Riccardo gN MD Other Provider Active Start : August 27, 2024 Dr. Nicole Trujillo , DO Attending Provider Active S tart: August 27, 2024 Dr. Nicole Trujillo , DO Other Provider Active Start : August 27, 2024 Team Status: Active Member Role/Relationship Status Dates Zohreh Mckeon [place], NON LICENSED NUCLEAR PLANT OPERATOR-C Primary Care Provider Activ e Start: August [...] Active Member Role/Relationship Status Dates Zohreh Mckeon [facility], NON LICENSED NUCLEAR PLANT OPERATOR-C Primary Care Provider Activ e Start: August [...] Status: Active Member Role/Relationship Status Dates Zohreh Terence MIRANDA, NON LICENSED NUCLEAR PLANT OPERATOR-C Primary Care Provider Activ e Start: August [...] Status: Active Member Role/Relationship Status Dates Zohreh Terence MIRANDA, NON LICENSED NUCLEAR PLANT OPERATOR-C Primary Care Provider Activ e Start: August [...] Active Member Role/Relationship Status Dates Zohrehdmitriy MIRANDA, NON LICENSED NUCLEAR PLANT OPERATOR-C Primary Care Provider Activ e Start: September 01, 2024 Dr. Vaughn Daugherty , DO Emergency Provider Activ e Start: September [...] September 01, 2024 Dr. Nicole Trujillo , DO Other Provider Active Start : September 01, 2024 Team Status: Active Member Role/Relationship Status Dates Zohreh MIRANDA, NON LICENSED NUCLEAR PLANT OPERATOR-C Primary Care Provider Activ e Start: September 01, 2024 Dr. Alli Brito MD Attending Provider Active S tart: September 01, 2024 Team Status: Active Member Role/Relationship Status Dates Zohreh KING, NON LICENSED NUCLEAR PLANT OPERATOR-C Primary Care Provider Activ e Start: September 02, 2024 Dr. Vaughn Daugherty , DO Emergency Provider Activ e Start: September 02, 2024 Dr. Brenda Posadas MD Admit Provider Active Star t: September 02, 2024 Dr. Brenda Posadas MD Other Provider Active Star t: September 02, 2024 Dr. Riccardo Ng MD Other Provider Active Start : September 02, 2024 Dr. Latricia Aaron MD Attending Provider Active Start: September 02, 2024 Dr. Latricia aAron MD Other Provider Active Star t: September 02, 2024 Dr. Nicole Trujillo DO Other Provider Active Start : September 02, 2024 Team Status: Inactive Member Role/Relationship Status Dates Zohreh KING, NON LICENSED NUCLEAR PLANT OPERATOR-C Primary Care Provider Activ e Start: September 05, 2024 End: September 05, 2024 Dr. Zack Card DO Attending Provider Active Start : September 05, 2024 End: September 05, 2024 Dr. Zack Card DO Emergency Provider Active Start : September 05, 2024 End: September 05, 2024 Team Status: Active Member Role/Relationship Status Dates Zohreh KING, NON LICENSED NUCLEAR PLANT OPERATOR-C Primary Care Provider Activ e Start: September [...] Active Member Role/Relationship Status Dates Zohreh KING, NON LICENSED NUCLEAR PLANT OPERATOR-C Primary Care Provider Activ e Start: September [...] Status: Active Member Role/Relationship Status Dates Zohreh Terence KING, NON LICENSED NUCLEAR PLANT OPERATOR-C Primary Care Provider Activ e Start: September [...] Team Status: Inactive Member Role/Relationship Status Dates Zohrehdmitriy MIRANDA, NON LICENSED NUCLEAR PLANT OPERATOR-C Primary Care Provider Activ e Start: September [...] Active Member Role/Relationship Status Dates Zohrehdmitriy MIRANDA, NON LICENSED NUCLEAR PLANT OPERATOR-C Primary Care Provider Activ e Start: September [...] Status: Active Member Role/Relationship Status Dates Zohreh Terence MIRANDA, NON LICENSED NUCLEAR PLANT OPERATOR-C Primary Care Provider Activ e Start: September [...] Status: Active Member Role/Relationship Status Dates Zohreh Terence MIRANDA, NON LICENSED NUCLEAR PLANT OPERATOR-C Primary Care Provider Activ e Start: September [...] Active Member Role/Relationship Status Dates Zohrehdmitriy MIRANDA, NON LICENSED NUCLEAR PLANT OPERATOR-C Primary Care Provider Activ e Start: September 13, 2024 Dr. Davis Ibarra DO Emergency Provider Active Start: September 13, 2024 Dr. Rosaura Crane MD Admit Provider Active St art: September 13, 2024 Dr. Rosaura Crane MD Other Provider Active St art: September 13, 2024 Dr. Brenda Posadas MD Attending Provider Active Start: September 13, 2024 Dr. Brenad Posadas MD Other Provider Active Star t: September 13, 2024 Dr. Nichelle Mcneil MD Other Provider Active Start: September 13, 2024 Team Status: Active Member Role/Relationship Status Dates Zohreh Terence MIRANDA, NON LICENSED NUCLEAR PLANT OPERATOR-C Primary Care Provider Activ e Start: September [...] Active Member Role/Relationship Status Dates Zohreh MIRANDA, NON LICENSED NUCLEAR PLANT OPERATOR-C Primary Care Provider Activ e Start: September [...] Active Member Role/Relationship Status Dates Zohreh MIRANDA, NON LICENSED NUCLEAR PLANT OPERATOR-C Primary Care Provider Activ e Start: September [...] Inactive Member Role/Relationship Status Dates Zohreh MIRANDA, NON LICENSED NUCLEAR PLANT OPERATOR-C Primary Care Provider Activ e Start: September 21, 2024 End: September 21, 2024 Dr. Riccardo Hillman DO Attending Provider Active Start: September 21, 2024 End: September 21, 2024 Dr. Riccardo Hillman , Emergency Provider Active Start: September 21, 2024 End: September 21, 2024 Team Status: Inactive Member Role/Relationship Status Dates Zohreh KINGC, NON LICENSED NUCLEAR PLANT OPERATOR-C Primary Care Provider Activ e Start: September 29, 2024 End: September 29, 2024 Dr. Zack Card DO Attending Provider Active Start : September 29, 2024 End: September 29, 2024 Dr. Zack Card , Emergency Provider Active Start : September 29, 2024 End: September 29, 2024 Team Status: Inactive Member Role/Relationship Status Dates Zohreh KINGC, NON LICENSED NUCLEAR PLANT OPERATOR-C Primary Care Provider Activ e Start: December 12, 2024 End: December 12, 2024 Dr. Derek Paniagua MD Referring Provider Active Sta rt: December 12, 2024 End: December 12, 2024 Dr. Derek Paniagua MD Emergency Provider Active Sta rt: December 12, 2024 End: December 12, 2024 Team Status: Inactive Member Role/Relationship Status Dates Zohreh Mckeon [place], NON LICENSED NUCLEAR PLANT OPERATOR-C Primary Care Provider Activ e Start: December 12, 2024 End: December 12, 2024 Dr. Derek Paniagua MD Attending Provider Active Sta rt: December 12, 2024 End: December 12, 2024 Dr. Derek Paniagua MD Referring Provider Active Sta rt: December 12, 2024 End: December 12, 2024 Dr. Derek Paniagua MD Emergency Provider Active Sta rt: December 12, 2024 End: December 12, 2024 Team Status: Active Member Role/Relationship Status Dates Zohreh KINGC, NON LICENSED NUCLEAR PLANT OPERATOR-C Primary Care Provider Activ e Start: January 29, 2025 Dr. Martina Martínez DO Emergency Provider Active Start: January 29, 2025 Dr. Latricia Yao DO Admit Provider Active Start: January 29, 2025 Dr. Latricia Yao DO Attending Provider Active Start: January 29, 2025 Team Status: Active Member Role/Relationship Status Dates Zohreh KINGC, NON LICENSED NUCLEAR PLANT OPERATOR-C Primary Care Provider Activ e Start: January 29, 2025 Dr. Martina Godman , DO Emergency Provider Active Start: January 29, 2025 Dr. Latricia Yao , DO Admit Provider Active Start: January 29, 2025 Dr. Latricia Yao , DO Attending Provider Active Start: January 29, 2025 Dr. Latricia Yao , DO Other Provider Active Start: January 29, 2025 Team Status: Active Member Role/Relationship Status Dates Zohreh Mckeon C, NON LICENSED NUCLEAR PLANT OPERATOR-C Primary Care Provider Activ e Start: January 30, 2025 Dr. Martina Martínez , DO Emergency Provider Active Start: January 30, 2025 Dr. Latricia Yao , DO Admit Provider Active Start: January 30, 2025 Dr. Latricia Yao , DO Other Provider Active Start: January 30, 2025 Dr. Nicole Trujillo , DO Attending Provider Active S tart: January 30, 2025 Dr. Nicole Trujillo , DO Other Provider Active Start : January 30, 2025 Team Status: Active Member Role/Relationship Status Dates Zohreh Terence C, NON LICENSED NUCLEAR PLANT OPERATOR-C Primary Care Provider Activ e Start: January 31, 2025 Dr. Martina Martínez , DO Emergency Provider Active Start: January 31, 2025 Dr. Latricia Yao , DO Admit Provider Active Start: January 31, 2025 Dr. Latricia Yao , DO Other Provider Active Start: January 31, 2025 Dr. Lei Justin , DO Attending Provider Active Start: January 31, 2025 Dr. Lei Justin , DO Other Provider Active Start: January 31, 2025 Dr. Nicole Trujillo , DO Other Provider Active Start : January 31, 2025 Team Status: Inactive Member Role/Relationship Status Dates Zohreh Mckeon [facility], NON LICENSED NUCLEAR PLANT OPERATOR-C Primary Care Provider Activ e Start: January 31, 2025 End: February 11, 2025 Dr. Martina Martínez , DO Emergency Provider Active Start: January 31, 2025 End: February 11, 2025 Dr. Latricia Yao , DO Admit Provider Active Start: January 31, 2025 End: February 11, 2025 Dr. Latricia Yao , DO Other Provider Active Start: January 31, 2025 End: February 11, 2025 Dr. Nicole Trujillo , DO Other Provider Active Start : January 31, 2025 End: February 11, 2025 Dr. Lei Justin , DO Other Provider Active Start: January 31, 2025 End: February 11, 2025 Dr. Riccardo Shaikh , DO Attending Provider Active Start: January 31, 2025 End: February 11, 2025 Dr. Talisha Boykin MD Other Provider Active St art: January 31, 2025 End: February 11, 2025 Team Status: Active Member Role/Relationship Status Dates Zohreh KINGC, NON LICENSED NUCLEAR PLANT OPERATOR-C Primary Care Provider Activ e Start: February 01, 2025 Dr. Martina Martínez , DO Emergency Provider Active Start: February 01, 2025 Dr. Latricia Yao , DO Admit Provider Active Start: February 01, 2025 Dr. Latricia Yao , DO Other Provider Active Start: February 01, 2025 Dr. Lei Justin , DO Attending Provider Active Start: February 01, 2025 Dr. Lei Justin , DO Other Provider Active Start: February 01, 2025 Dr. Nicole Trujillo , DO Other Provider Active Start : February 01, 2025 Team Status: Active Member Role/Relationship Status Dates Zohreh MIRANDA, NON LICENSED NUCLEAR PLANT OPERATOR-C Primary Care Provider Activ e Start: February 02, 2025 Dr. Martina Martínez , DO Emergency Provider Active Start: February 02, 2025 Dr. Latricia Yao , DO Admit Provider Active Start: February 02, 2025 Dr. Latricia Yao , Other Provider Active Start: February 02, 2025 Dr. Nicole Trujillo , DO Other Provider Active Start : February 02, 2025 Dr. Talisha Boykin MD Attending Provider Active Start: February 02, 2025 Dr. Talisha Boykin MD Other Provider Active St art: February 02, 2025 Dr. Lei Justin , DO Other Provider Active Start: February 02, 2025 Team Status: Active Member Role/Relationship Status Dates Zohreh MIRANDA, NON LICENSED NUCLEAR PLANT OPERATOR-C Primary Care Provider Activ e Start: February 03, 2025 Dr. Martina Martínez , DO Emergency Provider Active Start: February 03, 2025 Dr. Latricia Yao , DO Admit Provider Active Start: February 03, 2025 Dr. Latricia Yao , DO Other Provider Active Start: February 03, 2025 Dr. Nicole Trujillo , DO Other Provider Active Start : February 03, 2025 Dr. Talisha Boykin MD Attending Provider Active Start: February 03, 2025 Dr. Talisha Boykin MD Other Provider Active St art: February 03, 2025 Dr. Lei Justin , DO Other Provider Active Start: February 03, 2025 Team Status: Active Member Role/Relationship Status Dates Zohrhe MIRANDA, NON LICENSED NUCLEAR PLANT OPERATOR-C Primary Care Provider Activ e Start: February 04, 2025 Dr. Martina Martínez , DO Emergency Provider Active Start: February 04, 2025 Dr. Latricia Yao , DO Admit Provider Active Start: February 04, 2025 Dr. Latricia Yao , DO Other Provider Active Start: February 04, 2025 Dr. Nicole Trujillo , DO Other Provider Active Start : February 04, 2025 Dr. Talisha Boykin MD Attending Provider Active Start: February 04, 2025 Dr. Talisha Boykin MD Other Provider Active St art: February 04, 2025 Dr. Lei Justin , DO Other Provider Active Start: February 04, 2025 Team Status: Active Member Role/Relationship Status Dates Zohreh MIRANDA, NON LICENSED NUCLEAR PLANT OPERATOR-C Primary Care Provider Activ e Start: February 05, 2025 Dr. Martina Martínez , DO Emergency Provider Active Start: February 05, 2025 Dr. Latricia Yao , DO Admit Provider Active Start: February 05, 2025 Dr. Latricia Yao , DO Other Provider Active Start: February 05, 2025 Dr. Nicole Trujillo , DO Other Provider Active Start : February 05, 2025 Dr. Talisha Boykin MD Attending Provider Active Start: February 05, 2025 Dr. Talisha Boykin MD Other Provider Active St art: February 05, 2025 Dr. Lei Justin , DO Other Provider Active Start: February 05, 2025 Team Status: Active Member Role/Relationship Status Dates Zohreh MIRANDA, NON LICENSED NUCLEAR PLANT OPERATOR-C Primary Care Provider Activ e Start: February 06, 2025 Dr. Martina Martínez , DO Emergency Provider Active Start: February 06, 2025 Dr. Latricia Yao , DO Admit Provider Active Start: February 06, 2025 Dr. Latricia Yao , DO Other Provider Active Start: February 06, 2025 Dr. Nicole Trujillo , DO Other Provider Active Start : February 06, 2025 Dr. Talisha Boykin MD Attending Provider Active Start: February 06, 2025 Dr. Talisha Boykin MD Other Provider Active St art: February 06, 2025 Dr. Lei Justin , DO Other Provider Active Start: February 06, 2025 Team Status: Active Member Role/Relationship Status Dates Zohreh MIRANDA, NON LICENSED NUCLEAR PLANT OPERATOR-C Primary Care Provider Activ e Start: February 07, 2025 Dr. Martina Martínez , DO Emergency Provider Active Start: February 07, 2025 Dr. Latricia Yao , DO Admit Provider Active Start: February 07, 2025 Dr. Latricia Yao , DO Other Provider Active Start: February 07, 2025 Dr. Nicole Trujillo , DO Other Provider Active Start : February 07, 2025 Dr. Talisha Boykin MD Attending Provider Active Start: February 07, 2025 Dr. Talisha Boykin MD Other Provider Active St art: February 07, 2025 Dr. Lei Justin , DO Other Provider Active Start: February 07, 2025 Team Status: Active Member Role/Relationship Status Dates Zohreh MIRANDA, NON LICENSED NUCLEAR PLANT OPERATOR-C Primary Care Provider Activ e Start: February 08, 2025 Dr. Martina Martínez , DO Emergency Provider Active Start: February 08, 2025 Dr. Latricia Yao , DO Admit Provider Active Start: February 08, 2025 Dr. Latricia Yao , DO Other Provider Active Start: February 08, 2025 Dr. Nicole Trujillo , DO Other Provider Active Start : February 08, 2025 Dr. Talisha Boykin MD Attending Provider Active Start: February 08, 2025 Dr. Talisha Boykin MD Other Provider Active St art: February 08, 2025 Dr. Lei Justin , DO Other Provider Active Start: February 08, 2025 Team Status: Active Member Role/Relationship Status Dates Zohreh MIRNADA, NON LICENSED NUCLEAR PLANT OPERATOR-C Primary Care Provider Activ e Start: February 09, 2025 Dr. Martina Martínez , DO Emergency Provider Active Start: February 09, 2025 Dr. Latricia Yao , DO Admit Provider Active Start: February 09, 2025 Dr. Latricia Yao , DO Other Provider Active Start: February 09, 2025 Dr. Nicole Trujillo , DO Other Provider Active Start : February 09, 2025 Dr. Lei Justin , DO Other Provider Active Start: February 09, 2025 Dr. Riccardo Shaikh , DO Attending Provider Active Start: February 09, 2025 Dr. Riccardo Shaikh , DO Other Provider Active Star t: February 09, 2025 Dr. Talisha Boykin MD Other Provider Active St art: February 09, 2025 Team Status: Active Member Role/Relationship Status Dates Zohreh Terence KING, NON LICENSED NUCLEAR PLANT OPERATOR-C Primary Care Provider Activ e Start: February 10, 2025 Dr. Martina Martínez , DO Emergency Provider Active Start: February 10, 2025 Dr. Latricia Yao , DO Admit Provider Active Start: February 10, 2025 Dr. Latricia Yao , DO Other Provider Active Start: February 10, 2025 Dr. Nicole Trujillo , DO Other Provider Active Start : February 10, 2025 Dr. Lei Justin , DO Other Provider Active Start: February 10, 2025 Dr. Riccardo Shaikh , DO Attending Provider Active Start: February 10, 2025 Dr. Riccardo Shaikh , DO Other Provider Active Star t: February 10, 2025 Dr. Talisha Boykin MD Other Provider Active St art: February 10, 2025 Team Status: Active Member Role/Relationship Status Dates Zohrehdmitriy KING, NON LICENSED NUCLEAR PLANT OPERATOR-C Primary Care Provider Activ e Start: February 11, 2025 Dr. Martina Martínez DO Emergency Provider Active Start: February 11, 2025 Dr. Latricia Yao , DO Admit Provider Active Start: February 11, 2025 Dr. Latricia Yao , Other Provider Active Start: February 11, 2025 Dr. Nicole Trujillo , Other Provider Active Start : February 11, 2025 Dr. Lei Justin , DO Other Provider Active Start: February 11, 2025 Dr. Riccardo Shaikh DO Attending Provider Active Start: February 11, 2025 Dr. Riccardo Shaikh DO Other Provider Active Star t: February 11, 2025 Dr. Talisha Boykin MD Other Provider Active St art: February 11, 2025 Source Comments (unrecognize d section and content) In the event this informatio n is protected by the Federal Confidentiality of Alcohol and Drug Abuse Patient Records regulations: The Federal rules restrict any use of the information to criminally investigate or prosecute any alcohol or drug abuse patient.[facility] the event this information is protected by the Federal Confidentiality of Alcohol and Drug Abuse Patient Records regulations: The Federal rules restrict any use of the information to criminally investigate or prosecute any alcohol or drug abuse patient.[facility] the event this information is protected by the Federal Confidentiality of Alcohol and Drug Abuse Patient Records regulations: The Federal rules restrict any use of the information to criminally investigate or prosecute any alcohol or drug abuse patient.[facility] the event this information is protected by the Federal Confidentiality of Alcohol and Drug Abuse Patient Records regulations: The Federal rules restrict any use of the information to criminally investigate or prosecute any alcohol or drug abuse patient.[facility] the event this information is protected by the Federal Confidentiality of Alcohol and Drug Abuse Patient Records regulations: The Federal rules restrict any use of the information to criminally investigate or prosecute any alcohol or drug abuse patient.[facility] the event this information is protected by the Federal Confidentiality of Alcohol and Drug Abuse Patient Records regulations: The Federal rules restrict any use of the information to criminally investigate or prosecute any alcohol or drug abuse patient.[facility] the event this information is protected by the Federal Confidentiality of Alcohol and Drug Abuse Patient Records regulations: The Federal rules restrict any use of the information to criminally investigate or prosecute any alcohol or drug abuse patient.[facility] the event this information is protected by the Federal Confidentiality of Alcohol and Drug Abuse Patient Records regulations: The Federal rules restrict any use of the information to criminally investigate or prosecute any alcohol or drug abuse patient.[facility] the event this information is protected by the Federal Confidentiality of Alcohol and Drug Abuse Patient Records regulations: The Federal rules restrict any use of the information to criminally investigate or prosecute any alcohol or drug abuse patient.[facility] Hospital[facility] the event this information is protected by the Federal Confidentiality of Alcohol and Drug Abuse Patient Records regulations: The Federal rules restrict any use of the information to criminally investigate or prosecute any alcohol or drug abuse patient.[facility] Reason for Visit (unrecogniz ed section and content) Reason Comments Appointment Radiology XR Reason Comments Patient Question Abscess Reason Comments Patient Update Reason Comments Contact Center Call Patient Update PHYSICIAN INSTRUCTIONS Reason Comments returned jail call Patient Update Reason Comments Orders AG [...] BE BASED ON THE PRIMARY CLINICAL RECORDS. [facility]. provides no warranty or guarantee of the accuracy or completeness of information in this document.
--- NOTE | 2025-05-19 23:50 | PCM.HP.STD ---
HPI - General General Date of Admission: 05/19/25 HPI Narrative TRENTON DENTON, is a 54 F who presents to the hospital with nausea, vomiting, diarrhea. 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 She denies any recent sick contacts. And denies any abnormal food intake. She states that she cannot hold anything down which is why she is being admitted. She was given some antinausea medications in the emergency room but is still having significant nausea and therefore was brought to the hospital. No fevers or chills, no leukocytosis, creatinine is at baseline. She does have some hyponatremia from likely decreased p.o. intake. She did receive a liter of fluid in the emergency room however were limited secondary to the fact that her ejection fraction is 20% [facility] Medical History Oropharyngeal dysphagia Esophageal dysphagia Acute on chronic HFrEF (heart failure with reduced ejection fraction) Pulmonary infarction Bilateral pulmonary embolism Pulmonary edema Acute hypoxemic respiratory failure Uncontrolled diabetes mellitus Peripheral vascular disease, unspecified Cardiac LV ejection fraction 10-20% Tobacco abuse Overweight (BMI 25.0-29.9) L5 vertebral fracture ESBL (extended spectrum beta-lactamase) producing bacteria infection Generalized weakness Candidiasis of breast Colitis Debility PTSD (post-traumatic stress disorder) Closed compression fracture of L3 vertebra Hypokalemia Colitis BiPAP (biphasic positive airway pressure) dependence Coronary artery disease On home oxygen therapy Rheumatoid arthritis Sleep apnea Smoker DVT (deep venous thrombosis) Seizures Amputation toe Psychiatric disorder Ischemic cardiomyopathy Diabetes type 2, uncontrolled Essential hypertension Substance abuse Alcohol abuse Depression Osteoporosis GERD (gastroesophageal reflux disease) Pulmonary embolism Myocardial infarct Pericardial effusion Hypoxemia Acute dyspnea Aftercare following surgery of the circulatory system Hx of fracture of humerus Toe amputee Hyperlipidemia CHF (congestive heart failure) CAD (coronary artery disease), [place] coronary artery Home Medications ?Medication ?Instructions ?Recorded ?Last Taken ?Type clopidogrel 75 mg tablet 75 mg PO DAILY anti platelet #30 02/03/23 09/06/24 Rx tabs pantoprazole 40 mg tablet,delayed 40 mg PO DAILY reflux 04/18/23 09/06/24 History release sacubitril 24 mg-valsartan 26 mg 1 tab PO BID .bp 30 days #60 tabs 05/07/23 09/06/24 Rx tablet (Entresto) atorvastatin 80 mg tablet 80 mg PO QHS cholesterol 12/29/23 09/06/24 History gabapentin 300 mg capsule 300 mg PO TID nerve pain 12/29/23 09/06/24 History cholecalciferol (vitamin D3) 1,250 1,250 mcg PO WE supplement 02/14/24 09/03/24 History mcg (50,000 unit) tablet escitalopram oxalate 20 mg tablet 20 mg PO DAILY depression 06/29/24 09/06/24 History midodrine 2.5 mg tablet 2.5 mg PO DAILY blood pressure 06/29/24 09/06/24 History polyethylene glycol 3350 17 17 g PO BID PRN constipation 06/29/24 Unknown History gram/dose oral powder (Miralax) sennosides 8.6 mg-docusate sodium 2 tab PO BID PRN constipation 06/29/24 Unknown History 50 mg tablet (Stimulant Laxative Plus) tizanidine 4 mg tablet 4 mg PO 3XD spasm 06/29/24 09/06/24 History sennosides 8.6 mg-docusate sodium 2 tab PO BID #60 tabs 09/16/24 Unknown Rx 50 mg tablet (Stimulant Laxative Plus) metoclopramide HCl 10 mg tablet 10 mg PO Q6H PRN nausea and 09/21/24 Unknown Rx (Reglan) vomiting 5 days #20 tabs nystatin 100,000 unit/gram topical 1 applic topical TID #0 grams 02/11/25 Unknown Rx powder OXYGEN - Supplemental ([facility] Pulmonary Information 04/01/25 Unknown History INFORMATIONAL USE ONLY) apixaban 5 mg tablet (Eliquis) 5 mg PO BID #60 tabs 04/11/25 Unknown Rx empagliflozin 10 mg tablet 10 mg PO DAILY #30 tabs 04/11/25 Unknown Rx (Jardiance) furosemide 40 mg tablet 40 mg PO DAILY #30 tabs 04/11/25 Unknown Rx spironolactone 50 mg tablet 50 mg PO DAILY #30 tabs 04/11/25 Unknown Rx acetaminophen 500 mg tablet 1,000 mg PO Q8 PAIN 05/19/25 Unknown History carvedilol 6.25 mg tablet 6.25 mg PO BID 05/19/25 Unknown History glucagon 1 mg solution for 1 mg IM PRN HYPOGLYCEMIA 05/19/25 Unknown History injection (Glucagon Emergency Kit) insulin glargine-yfgn 100 unit/mL 20 unit subcut QHS 05/19/25 Unknown History (3 mL) subcutaneous pen insulin lispro 100 unit/mL See Protocol subcut ACHS 05/19/25 Unknown History subcutaneous pen (Humalog KwikPen (U-100) Insulin) lidocaine 5 % topical patch 1 patch topical BID PRN pain 05/19/25 Unknown History melatonin 3 mg tablet 3 mg PO QHS PRN Insomnia 05/19/25 Unknown History ondansetron HCl 4 mg tablet 4 mg PO Q8H PRN nausea and vomiting 05/19/25 Unknown History Allergy/AdvReac Type Severity Reaction Status Date / Time latex Allergy Hives Verified 05/19/25 18:07 Family History Mother Thyroid disorder Diabetes Hypertension Grandmother Diabetes Uncle Diabetes Aunt Diabetes Other Heart disease Surgical History History of cholecystectomy History of appendectomy History of cholecystectomy Social History household members: spouse and children housing: house Smoking Status: Current every day smoker tobacco type: cigarettes alcohol intake: never substance use type: marijuana what type of physical activity do you participate in: none do you feel safe at home: Yes ROS Constitutional Constitutional: Denies chills, fatigue, fever(s) or malaise Eyes Eyes: Denies blurry vision ENT HEENT: Denies headache(s) or nasal discharge Cardiovascular Cardiovascular: Denies chest pain, dyspnea on exertion or syncope Respiratory/Chest Respiratory/Chest: Denies cough, shortness of breath at rest or shortness of breath with exertion Gastrointestinal Gastrointestinal: Reports diarrhea, nausea and vomiting; Denies constipation Genitourinary Genitourinary: Denies dysuria Neurologic Neurologic: Denies focal weakness, numbness or tremor(s) Psychiatric Psychiatric: Denies anxiety or depression Vital Signs Vital Signs Vital Signs: 05/19/25 18:02 05/19/25 20:00 05/19/25 22:00 Temperature 98.0 F Temperature Source Oral Pulse Rate 114 H 105 H 102 H Respiratory Rate 16 Blood Pressure 148/68 H 137/62 H 132/77 H Blood Pressure Mean 94 87 95 Pulse Ox 99 98 100 Oxygen Delivery Method Room Air Room Air Room Air 05/19/25 23:16 Temperature 98.8 F Temperature Source Pulse Rate 101 H Respiratory Rate 18 Blood Pressure 127/72 H Blood Pressure Mean 90 Pulse Ox 95 Oxygen Delivery Method Weight Weight: 188 lb 14.978 oz Body Mass Index (BMI) 30.4 Physical Exam Narrative General: Alert, Oriented x3, Cooperative, No apparent distress HEENT: Atraumatic, PERRLA, EOMI, Normocephalic Oral: Moist Mucosa Neck: Supple, No JVD Lungs: Diminished, Normal air movement, No rhonchi, No wheeze, No rales Cardiovascular: Regular rate, Regular Rhythm, Normal S1, Normal S2, No murmurs Abdomen: Soft, Non Tender, Non-Distended, No Hepato-splenomegaly Extremities: Edema, Capillary Refill Less than 3 Seconds Skin: No rashes, No breakdown Musculoskeletal: No Tenderness to Palpation of Joints or Extremities Neurological: No focal neurological deficits, moves all extremities Psych/Mental Status: Normal Affect, Appropriate Results Lab / Micro Data 05/19/25 19:35 05/19/25 21:50 Labs: Laboratory Results - last 24 hr 05/19/25 19:13: WBC Cancelled, Corrected WBC Cancelled, RBC Cancelled, Hgb Cancelled, Hct Cancelled, MCV Cancelled, MCH Cancelled, MCHC Cancelled, RDW Std Deviation Cancelled, RDW Coeff of Spencer Cancelled, Plt Count Cancelled, MPV Cancelled, Immature Gran % (Auto) Cancelled, Neut % (Auto) Cancelled, Lymph % (Auto) Cancelled, Jerome % (Auto) Cancelled, Eos % (Auto) Cancelled, Baso % (Auto) Cancelled, Absolute Neuts (auto) Cancelled, Absolute Lymphs (auto) Cancelled, Total Counted Cancelled, Neutrophils % (Manual) Cancelled, Band Neutrophils % Cancelled, Lymphocytes % (Manual) Cancelled, Monocytes % (Manual) Cancelled, Eosinophils % (Manual) Cancelled, Basophils % (Manual) Cancelled, Metamyelocytes % Cancelled, Myelocytes % Cancelled, Promyelocytes % Cancelled, Blast Cells % Cancelled, Plasma Cell % (Manual) Cancelled, Other Cells % Cancelled, Nucleated RBC % Cancelled, Nucleated RBCs/100 WBC Cancelled, Differential Comment Cancelled, Diff Path Review Cancelled, Hypersegmented Neuts Cancelled, Atypical Lymphocytes Cancelled, Reactive Lymphocytes Cancelled, Smudge Cells Cancelled, Toxic Granulation Cancelled, Toxic Vacuolation Cancelled, Dohle Bodies Cancelled, Truman Rods Cancelled, Platelet Estimate Cancelled, Plt Morphology Comment Cancelled, RBC Morphology Cancelled 05/19/25 19:13: RBC Morphology Cancelled, Polychromasia Cancelled, Hypochromasia Cancelled, Basophilic Stippling Cancelled, Anisocytosis Cancelled, Microcytosis Cancelled, Macrocytosis Cancelled, Spherocytes Cancelled, Sickle Cells Cancelled, Target Cells Cancelled, Tear Drop Cells Cancelled, Ovalocytes Cancelled, Stomatocytes Cancelled, Burris-Fuig Bodies Cancelled, Lore Cells Cancelled, Bite Cells Cancelled, Crenated Cell Cancelled, Acanthocytes (Spur) Cancelled, Rouleaux Cancelled, Schistocytes Cancelled, Sodium 128 L, Potassium 3.5, Chloride 94 L, Carbon Dioxide 18.7 L, Anion Gap 15, BUN 33 H, Creatinine 1.17, Estim Creat Clear Calc 61.33, Est GFR (MDRD) Non-Af 56 L, BUN/Creatinine Ratio 27.8 H, Glucose 482 H*, Lactic Acid 2.9 H*, Calcium 9.7, Total Bilirubin 1.04, AST 22, ALT 16, Alkaline Phosphatase 138 H, Total Protein 7.5, Albumin 4.0, Globulin 3.5, Albumin/Globulin Ratio 1.1, Lipase 69 05/19/25 19:35: WBC 10.8, RBC 3.69 L, Hgb 10.0 L, Hct 29.9 L, MCV 81.0, MCH 27.1, MCHC 33.4, RDW Std Deviation 36.7, RDW Coeff of Spencer 12.4, Plt Count 232, MPV 9.6, Immature Gran % (Auto) 0.400, Neut % (Auto) 81.0 H, Lymph % (Auto) 11.3 L, Jerome % (Auto) 7.0, Eos % (Auto) 0.1, Baso % (Auto) 0.2, Absolute Neuts (auto) 8.8 H, Absolute Lymphs (auto) 1.22, Nucleated RBC % 0 05/19/25 21:50: Sodium 128 L, Potassium 3.6, Chloride 96 L, Carbon Dioxide 18.6 L, Anion Gap 13, BUN 32 H, Creatinine 1.02, Estim Creat Clear Calc 70.35, Est GFR (MDRD) Non-Af 66, BUN/Creatinine Ratio 31.3 H, Glucose 432 H, Calcium 9.2 05/19/25 22:09: Lactic Acid 1.9 05/19/25 23:19: POC Glucose 388 H ABG Data ABG results: ABG 05/19/25 19:43 Specimen Type LUPE Sample Site Not entered VBG pH 7.33 VBG pO2 27 VBG HCO3 20 L VBG Total CO2 22 L VBG O2 Sat (Calc) 46 L VBG Base Excess -6 L POC Mix VBG pCO2 Pt Tmp 38.8 L O2 Delivery Device Room Air Imaging Radiology Impression Abdomen/Pelvis CT 05/19/25 18:30 IMPRESSION: 1. No acute findings in the abdomen or pelvis. 2. Mild hepatomegaly and mild diffuse hepatic steatosis. 3. Redemonstrated cholecystectomy and appendectomy. 4. Stable bilateral adrenal nodules. 5. Redemonstrated compression deformities of L3, L4, and L5. Reading Location: [facility] Assessment & Plan Assessment/Plan (1) Gastroenteritis: PLAN: Plan 1. Gastroenteritis with hyponatremia ? Continue with nausea medications ? She was given some IV fluids overnight will recheck her sodium in the morning, this is likely due to low p.o. intake ? Will hold her diuretics overnight given her hyponatremia and fluid administration in the emergency room, if everything is stable in the morning with improvement in her sodium can always restart 2. Chronic combined systolic and diastolic CHF/essential HTN/HLD ? Echocardiogram on 03/30/2025 with an EF of 20% with severe generalized hypokinesis and at least stage I diastolic dysfunction ? Will hold her Lasix and Aldactone secondary to her hyponatremia and poor p.o. intake ? Will continue with her Coreg, Plavix, Entresto ? She is on midodrine to be able to tolerate goal-directed therapy ? Continue with Jardiance both for her heart failure and her diabetes 3. Recent acute bilateral pulmonary embolisms ? Currently not requiring any oxygen ? Continue with Eliquis, she did have an EGD on 04/06/2025 that demonstrated moderately severe erosive esophagitis with no bleeding 4. GERD with moderately severe erosive esophagitis ? Stable ? Continue with PPI 5. Anxiety/depression/chronic pain ? Stable ? Continue with her home medications DVT: Mahi 75 minutes was spent on direct patient care, including documentation as well as chart review and collaboration with colleagues Charges/Coding Visit Charges Inpatient E&M: 40340 Init Hosp L3
--- OUTSIDE RECORDS SUMMARY | 2025-05-19 23:54 | XMS RPT_ITS | CCD ---
Author Organization [facility] Care Team Providers Care Cotton Header Name Role Phone FERCHO OSBORNE Admitting Unavailable [...] Provider [phone] Dr. Riccardo Ng Other Provider [facility] Nathaly Lainez Primary Care Pro vider Dr. Nathaly Lainez Primary Care Provider Dr. Nathaly Lainez Referring Provider Cirot MARTIN PA Jevon Attending Provider Dr. Alli Brito Attending Provider MARTIN Montero Attending Provider [phone] Dr. Riccardo Ng Attending Provider Dr. Riccardo Ng Referring Provider [phone] Riccardo Ng Other Provider [facility], [place] Primary Care Pro vider Dr. Nathaly Lainez Primary Care Provider Dr. Nathaly Lainez Referring Provider [facility], Nathaly Lainez Referring Provid er MD Jeremiah Rawls Emergency Provider Dr. Jeison Forde Admit Provider Dr. Jeison Forde Other Provider Dr. Sabina Rosenberg Attending Provider Dr. Sabina Rosenberg Other Provider Dr. aSnjiv Alcantar Attending Provider Dr. Jeison Forde Referring Provider JEISON FORDE DPM Attending Unavailable PHYSICIAN, NONE Primary Care Unavailable Del SALAZAR PA Veda Referring Provider Dr. Nathaly Lainez Primary Care Provider Dr. Nathaly Lainez Referring Provider Del SALAZAR, PA Veda Attending Provider Dr. Riccardo Ng Attending Provider Dr. Riccardo Ng Referring Provider [phone] Riccardo Ng Other Provider [facility], Nathaly Lainez Primary Care Pro vider MARTIN Montero Referring Provider [facility], [place]anda Referring Provid er MD Jeremiah Rawls Emergency Provider Dr. Jeison Forde Admit Provider Dr. Jeison Forde Referring Provider Dr. Jeison Forde Other Provider Dr. Sabina Rosenberg Attending Provider Dr. Sabina Rosenberg Other Provider Dr. Sanjiv Alcantar Attending Provider MARTIN Mathis Attending Provider MARTIN Mathis Referring Provider Dr. Yvette Hanley Referring Provider [facility] Pro vider Dr. Riccardo Ng Attending Provider Dr. Yvette Hanley Referring Provider MARTIN Mathis Referring Provider Dr. Yvette Hanley Emergency Provider Dr. Sabina Rosenberg Admit Provider Dr. Sabina Rosenberg Attending Provider TerDr. Sabina hammond Other Provider [facility] Care Pro vider Dr. Zack Card Emergency Provider Dr. Brandon Adames Admit Provider Dr. Brandon Adames Attending Provider Dr. Brandon Adames Other Provider [facility] Pro vider Dr. Yvette Hanley Emergency Provider Dr. Sabina Rosenberg Admit Provider Dr. Sabina Rosenberg Attending Provider Dr. Sabina Rosenberg Other Provider Dr. Zack Card Emergency Provider Dr. Brandon Adames Admit Provider Dr. Brandon Adames Attending Provider Dr. Brandon Adames Other Provider [facility], [facility] Referring Provid er Dr. Alli Brito Attending Provider Roof AEROSPACE ENGINEER, AEROSPACE ENGINEER-C Juancarlos Rashid Attending Provider Dr. iLno Sousa Attending Provider [facility] Primary Care Pro vider Dr. Yvette Hanley Emergency Provider Dr. Sabina Rosenberg Admit Provider Dr. Sabina Rosenberg Attending Provider Dr. Sabina Rosenberg Other Provider [facility] Primary Care Pro vider Dr. Sabina Rosenberg Attending Provider Dr. Sabina Rosenberg Other Provider Dr. Ananda Coyle Emergency Provider Dr. Lei Justin Admit Provider Dr. Lei Justin Other Provider Dr. Alli Brito Other Provider Dr. Brenda Posadas Other Provider Dr. Brenda Posadas Attending Provider Dr. Latricia Aaron Attending Provider Unavailable Dr. Latricia Aaron Other Provider Unavailable Dr. Lei Justin Referring Provider [facility], [facility] Primary Care Pro vider Dr. Riccardo Hillman Emergency Provider Dr. Talisha Boykin Admit Provider Korjaycee, Dr. Talisha Landry Other Provider Dr. Jeremy Alexander Attending Provider Dr. Jeremy Alexander Other Provider Dr. Moody Gallagher Other Provider Ashutosh, Dr. Talisha Landry Attending Provider Dr. Jeremy Aelxander Attending Provider [facility] Primary Care Pro vider Dr. Ananda Coyle Emergency Provider Dr. Lei Justin Admit Provider [phone] Dr. Lei Justin Other Provider [phone] Dr. Alli Brito Other Provider Dr. Brenda Posadas Attending Provider Dr. Brenda Posadas Other Provider Dr. Alli Brito Attending Provider Dr. Latricia Aaron Attending Provider Unavailable Dr. Latricia Aaron Other Provider Unavailable Dr. Riccardo Hillman Emergency Provider Korjaycee, Dr. Talisha Landry Admit Provider Koram, Dr. Talisha Landry Attending Provider Ashutosh, Dr. Talisha Landry Other Provider Dr. Jeremy Alexander Other Provider Dr. Jeremy Alexander Attending Provider Dr. Moody Gallaghre Other Provider Terence AEROSPACE ENGINEER, Zohreh Unavailable [facility] Care Provider [facility] Primary Care Pro vider [facility] Care Provider No, Pcp Primary Care Provider Cadence PEARSON MD, BRITTANEY Sue Primary Care Physician MICHEL HERNANDEZ, BRITTANEY Sue Primary Care Unavailable DARIEL SANCHEZ, DR RAYMUNDO Springer Attending Unavailabl e IBETH ALEJANDRO Consulting Unavailable [facility] Care Unavailable LASH-RITTER, TATIANA A Admitting Unavailab le LASH-RITTER, TATIANA A Attending Unavailab le [facility] Care Unavailable MUAKKASSA, FARID ANU Admitting Unavailabl e MUAKKASSA, FARID ANU Attending Unavailabl e DIYA MAY Consulting Unavailable [facility], [facility] Primary Care Pro vider Jeremiah Rawls [...] Dr. Nicole Trujillo DO Referring Provider Terence AEROSPACE ENGINEER-CZohreh Primary Care Provider Dr. Riccardo Hillman DO Attending Provider Dr. Riccardo Hillman DO Emergency Provider Dr. Riccardo Ng MD Attending Provider Dr. Vaughn Daugherty DO Emergency Provider Cuauhtemoc HERNANDEZ, Dr. Gutierrez Attending Provider [facility] [place] [facility] Primary Care Pro vider Dr. Nicole Trujillo DO Other Provider Willow SANCHEZ, Dr. Mendes Emergency Provider Berenice HERNANDEZ, Dr. Gu Other Provider Agnieszka HERNANDEZ, Dr. Hooker Attending Provider Unavaila [facility] Agnieszka HERNANDEZ, Dr. Hooker Other Provider Unavailable [...] HERNANDEZ, Dr. Amish Bashir Other Provider Terence AEROSPACE ENGINEER-C, [facility] Care Provider Cuauhtemoc HERNANDEZ, Dr. Gutierrez Admit Provider Cuauhtemoc HERNANDEZ, Dr. Gutierrez Other Provider Dr. Nicole Trujillo DO Other Provider Dr. Nicole Trujillo DO Attending Provider Dr. Davis Ibarra DO Emergency Provider [phone] Nichelle Mcneil MD Other Provider Dr. Riccardo Hillman DO Attending Provider Dr. Riccardo Hillman DO Emergency Provider Siva HERNANDEZ, Dr. Reed Referring Provider Dr. eDrek Paniagua MD Emergency Provider Terence AEROSPACE ENGINEER-C, [facility] Provider Siva HERNANDEZ, Dr. Reed Attending Provider Siva HERNANDEZ, Dr. Reed Referring Provider Siva HERNANDEZ, Dr. Reed Emergency Provider Tanya SANCHEZ, Dr. Mack Emergency Provider de Gennaro DO, Dr. Hooker Admit Provider Unavail able de Gennaro DO, Dr. Hooker Attending Provider Unav ailable Terence AEROSPACE ENGINEER-C, [facility] Provider Siva HERNANDEZ, Dr. Reed Attending Provider [...] Provider Dr. Riccardo Shaikh DO Attending Provider Ashuotsh HERNANDEZ, Dr. Talisha Landry Other Provider Ashutosh HERNANDEZ, Dr. Talisha Landry Attending Provider Dr. Riccardo Shaikh DO Other Provider [facility] Unavailabl e Nichelle Mcneil Referring Unavailable Nichelle Mcneil Attending Unavailable [facility] Unavailmir e Derek Paniagua Referring Unavailable Derek Paniagua Attending Unavailable Brenda Posadas Admitting Unavailable [facility] Unavailable Nicole Trujillo Attending Unavailable Brenda Posadas Consulting Unavailable Nichelle Mcneil Consulting Unavailable Lei Justin Admitting Unavailable Lei Justin Consulting Unavailable [facility] Unavailabl e Talisha Boykin Attending Unavailable Latricia Aaron Consulting Unavailable ScottyAbdirizak roland Consulting Unavailable Jeremy Alexander Consulting Unavailable Friend, Jeevan Consulting Unavailable Evelyne Salvador Consulting Unavailable Griselda Huynh Consulting Unavailable Bina Saldana Consulting Unavailable Nichelle Mcneil Consulting Unavailable [facility] Unavailabl e Nichelle Mcneil Attending Unavailable Nichelle Mcneil Referring Unavailable [facility] Unavailabl e Nichelle Mcneil Referring Unavailable Nichelle Mcneil Attending Unavailable Nicole Trujillo Referring Unavailable Nicole Trujillo Attending Unavailable [facility] Unavailabl e Nichelle Mcneil Attending Unavailable [facility] Unavailabl e Nichelle Mcneil Referring Unavailable Zack Card Attending Unavailable [facility] Unavailable Nicole Trujillo Referring Unavailable Nicole Trujillo Attending Unavailable [facility] Unavailabl e Nicole Trujillo Attending Unavailable Nicole Trujillo Referring Unavailable [facility] Unavailabl e Nicole Trujillo Attending Unavailable Nicole Trujillo Referring Unavailable [facility] Unavailabl e Nicole Trujillo Attending Unavailable Nicole Trujillo Referring Unavailable Zack Card Attending Unavailable [facility] Unavailabl e [facility] Unavailabl e Nicole Trujillo Attending Unavailable Nicole Trujillo Referring Unavailable [facility] Unavailmir e Nichelle Mcneil Referring Unavailable Nichelle Mcneil Attending Unavailable [facility] Unavailabl e Nichelle Mcneil Referring Unavailable Nichelle Mcneil Attending Unavailable Lei Justin Attending Unavailable [facility] Unavailmir e Latricia Yao Admitting Unavailable Latricia Yao Consulting Unavailable Nicole Trujillo Consulting Unavailable Lei Justin Consulting Unavailable Lei Justin Attending Unavailable [facility] Unavailmir e Latricia Yao Admitting Unavailable Latricia Yao Consulting Unavailable Nicole Trujillo Consulting Unavailable Lei Justin Consulting Unavailable Talisha Boykin Attending Unavailable Talisha Boykin Consulting Unavailable [facility] Unavailable Nicole Trujillo Consulting Unavailable Nicole Trujillo Admitting Unavailable Talisha Boykin Attending Unavailable Benjamin Jeremy Consulting Unavailable Rosie Boykina Gris Consulting Unavailable Rosaura Crane Admitting Unavailable Rosaura Crane Consulting Unavailable Latricia Aaron Attending Unavailable Terence Zohreh Meneses Primary Care UnavailNichelle Holly Consulting Unavailable Bernda Posadas Consulting Unavailable Amish Tariq Consulting Unavailable [...] Attending Unavailable Patriciaam, Talisha Gris Consulting Unavailable [facility] Unavailabl e Abdirizak Fajardo Attending Unavailable Nicole Trujillo Referring Unavailable Nicole Trujillo Attending Unavailable [facility], [facility] Unavailabl e [facility], [facility] UnavailNichelle Holly Referring Unavailable Nichelle Mcneil Attending Unavailable [facility], [facility] Care Unavailable Nicole Trujillo Consulting Unavailable Jenae Trujillohryn Admitting Unavailable Koram, Talisha Gris Attending Unavailable Benjamin, Jeremy Consulting Unavailable [facility], [facility] Unavailmir e Brenda Posadas Consulting Unavailable Brenda Posadas Admitting Unavailable Latricia Aaron Attending Unavailable Riccardo Ng Consulting Unavailable Nicole Trujillo Consulting Unavailable [facility], [facility] UnavailRiccardo Hutchinson Attending Unavailable Riccardo Shaikh Attending Unavailable [facility] UnavailLatricia Terrazas Consulting Unavailable Latricia Yao Admitting Unavailable Nicole Trujillo Consulting Unavailable Lei Justin Consulting Unavailable Koram, Talisha Gris Consulting Unavailable Nicole Trujillo Referring Unavailable Nicole Trujillo Attending Unavailable [facility], [facility] UnavailLei Jamison Referring Unavailable Riccardo Ng Attending Unavailable [facility], [facility] UnavailRiccardo Hutchinson Attending Unavailable [facility] Unavailabl e [facility], [facility] Unavailabl e Alli Brito Attending Unavailable [facility], [facility] Unavailabl [facility], [facility] Referring Unavailable Bina Saldana Attending Unavailable [facility] UnavailRiccardo Bourne Attending Unavailable Jeison Abrams Referring Unavailable Rosaura Crane Admitting Unavailable Rosaura Crane Consulting Unavailable Latricia Aaron Attending Unavailable [facility], [facility] UnavailNichelle Holly Consulting Unavailable Cuauhtemoc Brenda Consulting Unavailable Amish Tariq Consulting Unavailable Latricia Aaron Consulting Unavailable Brenda Posadas Consulting Unavailable [facility] Unavailable Nicole Trujillo Attending Unavailable Brenda Posadas Admitting Unavailable Nicole Trujillo Consulting Unavailable Nichelle Mcneil Consulting Unavailable Nicole Trujillo Attending Unavailable Nicole Trujillo Attending Unavailable Posadas, Brenda Admitting Unavailable Riccardo Ng Consulting Unavailable [facility] Unavailabl e Posadas, Brenda Consulting Unavailable Nicole Trujillo Consulting Unavailable Riccardo Shaikh Attending Unavailable Riccardo Shaikh Consulting Unavailable Lei Justin Attending Unavailable Brenda Posadas Consulting Unavailable Posadas, Brenda Admitting Unavailable Brenda Posadas Attending Unavailable [facility] UnavailRiccardo Bourne Attending Unavailable Riccardo Ng Referring Unavailable Jeremy Alexander Attending Unavailable Brenda Posadas Attending Unavailable Brenda Posadas Attending Unavailable Rosaura Crane Admitting Unavailable Rosaura Crane Consulting Unavailable [facility] Unavailmir e Cuauhtemoc, Brenda Consulting Unavailable Latricia Aaron Attending Unavailable Latricia Aaron Consulting Unavailable Cuauhtemoc Brenda Admitting Unavailable [facility] Unavailable Brenda Posadas Attending Unavailable Brenda Posadas Consulting Unavailable Rosaura Crane Attending Unavailable Latricia Yao Attending Unavailable Nicole Trujillo Attending Unavailable [facility] UnavailNichelle Holly Referring Unavailable Nichelle Mcneil Attending Unavailable Allergies Allergy Classification Reported Allergen(s) Allergy Type Date of Onset Reaction(s) Facility (20 sources) Latex; Translations: [LATEX] Propensity to adverse reactions to drug (disorder) 1 [facility]ching [facility] Other [place] [facility] Medications Current Medications Medication Drug Class(es) Dates Sig (Normalized) Sig (Original) [id number] 200 actuat albuterol 0.09 mg/actuat metered dose [...] mg PO DAILY August 10, 2022 1:00am [employer] Start: 08-10-2022 Start: 12-09-2017 take 1 tablet [...] 12:00am supplement Start: 12-29-2023 End: 02-14-2024 take 31880 [IU] by mouth every week cholecalciferol (vitamin D3) Discontinued 85524 U PO EVERY WEEK December 29, 2023 [...] 12:00am docusate sodium 50 mg / sennosides, half-way 8.6 mg oral tablet (20 sources) Start: [...] source for Protocol details. Start: 03-27-2022 Nyamyc [id number] UNIT/GM powder APPLY THREE TIMES DAILY 0 [...] water. 0 04/12/2022 Active polyethylene glycol 3350 27018 mg powder for oral solution (20 sources) [...] th every six hours as needed HYDROcodone-acetaminophen (Subiaco) 5-325 MG tablet Take 1 tablet by [...] 08-21-2019 [facility] four hours as needed oxycodone-acetaminophen [...] 01-29-2023 Start: 03-17-2019 take 1 capsule by [facility] in the morning omeprazole (PriLOSEC) 20 [...] Ischemic cardiomyopathy; Translations: [Atherosclerotic heart disease of [place] coronary artery without angina pectoris] Onset: 8 [...] 8 12-30-2020 Episodic Other aftercare (2 sources) shelter (current) use of insulin; Translations: [shelter (current) use of insulin] Onset: 9 Episodic Other aftercare (20 sources) Surgical follow-up; Translations: [Encounter for surgical aftercare following surgery on the circulatory system] 09-12-2022 Episodic Other aftercare (15 sources) Long-term current use of anticoagulant; Translations: [meterman (current) use of anticoagulants] 06-19-2023 Episodic Other [...] and due to atherosclerosis; Translations: [Atherosclerosis of [place] arteries of extremities with rest pain, right [...] Interpretation Reference Range Facility Glucose measurement at [facility] deOrdered By: Riccardo Shaikh on 02-11-2025 Glucose [Mass/Vol] 158 mg/dL High 74-106 [facility] Absolute lymphocyte countOrd ered By: Talisha Boykin on 02-10-2025 Lymphocytes Auto (Unsp spec) [#/Vol] 1.75 10*3/uL 0.83-4.51 [facility] Anion gap in Serum or Plasma Ordered By: Talisha Boykin on 02-10-2025 Anion gap [Moles/Vol] 10 mmol/L 5-15 [facility] Automated lymphocyte count a s percentage of total leukocytesOrdered By: Talisha Boykin on 02-10-2025 Lymphocytes/100 WBC Auto (Unsp spec) 26.3 % 19-41 [facility] BUN/creatinine ratioOrdered By: Talisha Boykin on 02-10-2025 Urea nitrogen/Creatinine [Mass ratio] 32.8 mg/mg High 10-20 [facility] Basophil percentageOrdered B y: Talisha Boykin on 02-10-2025 Basophils/100 WBC (Bld) 0.5 % 0-1 [facility] Carbon dioxide, total [Moles /volume] in Central venous bloodOrdered By: Talisha Boykin on 02-10-2025 CO2 [Moles/Vol] 23.4 mmol/L 21.0-32.0 [facility] Chloride assayOrdered By: Na na Ashutosh on 02-10-2025 Chloride [Moles/Vol] 104 mmol/L 98-108 [facility] Eosinophil percentageOrdered By: Talisha Boykin 02-10-2025 Eosinophils/100 WBC (Bld) 1.1 % 0-5 [facility] Erythrocyte distribution wid th ratioOrdered By: Talisha Boykin on 02-10-2025 Erythrocyte distribution width (RBC) [Ratio] 14.9 % High 11.6-14.6 [facility] Erythrocyte distribution wid th standard deviationOrdered By: Talisha Boykin 02-10-2025 Erythrocyte distribution width (RBC) [Ratio] 46.4 fl High 35.1-43.9 [facility] Glomerular filtration rate ( GFR) estimation/1.73 sq m using serum, plasma, or whole bOrdered By: Talisha Boykin 02-10-2025 GFR/1.73 sq M.predicted among non-blacks MDRD (S/P/Bld) [Vol rate/Area] 93 mL/min/{1.73_m2} >60 [facility] Hematocrit Auto (Bld) [Volum e fraction]Ordered By: Talisha Boykin 02-10-2025 Hematocrit (Bld) [Volume fraction] 30.9 % Low 37-47 [facility] Hemoglobin measurementOrdere d By: Talisha Boykin 02-10-2025 Hemoglobin (Bld) [Mass/Vol] 10.0 g/dL Low 12.0-15.0 [facility] Immature granulocytes/100 WB C Auto (Bld)Ordered By: Talihsa Boykin 02-10-2025 Immature granulocytes/100 WBC (Bld) 0.500 % 0.0-0.9 [facility] MCV (mean corpuscular volume ) determinationOrdered By: Talisha Boykin 02-10-2025 MCV (RBC) [Entitic vol] 84.9 fL 81-99 [facility] Mean corpuscular hemoglobin (MCH) determinationOrdered By: Talisha Boykin 02-10-2025 MCH (RBC) [Entitic mass] 27.5 pg 27.0-32.0 [facility] Monocyte percentageOrdered B y: Talishaneville Boykin on 02-10-2025 Monocytes/100 WBC (Bld) 7.2 % 0-10 [facility] Neutrophil percentageOrdered By: Talisha Boykin on 02-10-2025 Neutrophils/100 WBC (Bld) 64.4 % 47-70 [facility] Platelet countOrdered By: Helen Boykin on 02-10-2025 Platelets (Bld) [#/Vol] 220 10*3/uL 150-450 [facility] Potassium measurement (mass/ volume)Ordered By: Talisha Boykin on 02-10-2025 Potassium (Unsp spec) [Mass/Vol] 4.3 mmol/L 3.3-5.1 [facility] RBC Auto (Bld) [#/Vol]Ordere d By: Talisha Boykin on 02-10-2025 RBC (Bld) [#/Vol] 3.64 10*6/uL Low 4.2-5.4 [facility] Serum creatinine measurement (mass/volume)Ordered By: Talisha Boykin on 02-10-2025 Creatinine [Mass/Vol] 0.76 mg/dL 0.70-1.20 [facility] Serum glucose measurement (m ass/volume)Ordered By: Talisha Boykin on 02-10-2025 Glucose [Mass/Vol] 157 mg/dL High 70-99 [facility] Serum or plasma calcium xiomara urement (mass/volume)Ordered By: Talisha Boykin on 02-10-2025 Calcium [Mass/Vol] 8.7 mg/dL 7.6-11.0 [facility] Serum or plasma urea nitroge n measurement (mass/volume)Ordered By: Talisha Boykin on 02-10-2025 Urea nitrogen [Mass/Vol] 25 mg/dL High 4-19 [facility] Sodium levelOrdered By: Talisha Boykin on 02-10-2025 Sodium [Moles/Vol] 138 mmol/L 133-145 [facility] White blood cell (WBC) count Ordered By: Talisha Boykin on 02-10-2025 WBC (Bld) [#/Vol] 6.7 10*3/uL 4.4-11.0 [facility] Basic Metabolic Profile (BMP )on 02-09-2025 BUN/CRE 33.2 RATIO High 10-20 [facility] Comment on above: Performed By: #### L 100.0100, L500.2500 ####[facility] [address] [place], [address] Calcium [Mass/Vol] 9.0 mg/dL Normal 7.6-11.0 [facility] Comment on above: Performed By: #### L 100.0100, L500.2500 ####[facility] [address] [place], [address] Chloride [Moles/Vol] 104 mmol/L Normal 98-108 [facility] Comment on above: Performed By: #### L 100.0100, L500.2500 ####[facility] [address] [place], [address] CO2 [Moles/Vol] 26.5 mmol/L Normal 21.0-32.0 [facility] Comment on above: Performed By: #### L 100.0100, L500.2500 ####[facility] [address] [place], [address] Creatinine [Mass/Vol] 0.70 mg/dL Normal 0.70-1.20 [facility] Comment on above: Performed By: #### L 100.0100, L500.2500 ####[facility] [address] [place], [address] ECRCL 101.09 ml/min Normal 50-250 [facility] Comment on above: Performed By: #### L 100.0100, L500.2500 ####[facility] [address] [place], [address] GAP 9 Normal 5-15 [facility] Comment on above: Performed By: #### L 100.0100, L500.2500 ####[facility] [address] [place], [address] GFR/1.73 sq M.predicted among non-blacks MDRD (S/P/Bld) [Vol rate/Area] 103 mL/min/{1.73_m2} Normal >60 [facility] Comment on above: Result Comment: mL/m in/1.73m2 CKD-EPI Creatinine Equation (2020) Performed By: #### L 100.0100, L500.2500 ####[facility] [address] [place], [address] Glucose [Mass/Vol] 113 mg/dL High 70-99 [facility] Comment on above: Performed By: #### L 100.0100, L500.2500 ####[facility] [address] [place], [address] Potassium [Moles/Vol] 4.4 mmol/L Normal 3.3-5.1 [facility] Comment on above: Result Comment: Hemo lysis present, Results??could be affected.?? Performed By: #### L 100.0100, L500.2500 ####[facility] [address] [place], [address] Sodium [Moles/Vol] 139 mmol/L Normal 133-145 [facility] Comment on above: Performed By: #### L 100.0100, L500.2500 ####[facility] [address] [place], [address] Urea nitrogen [Mass/Vol] 23 mg/dL High 4-19 [facility] Comment on above: Performed By: #### L 100.0100, L500.2500 ####[facility] [address] [place], [address] Bedside Glucoseon 02-09-2025 FINGERSTICK GLU 103 mg/dL Normal 74-106 [facility] Comment on above: Result Comment: TALIA CHAMBERS OF PATIENT CARE PER NURSING PROTOCOL Performed By: #### L 501.080 ####[facility] [address] [place], [address] FINGERSTICK GLU 218 mg/dL High 74-106 [facility] Comment on above: Result Comment: TALIA GEMENT OF PATIENT CARE PER NURSING PROTOCOL Performed By: #### L 501.080 ####[facility] [address] [place], [address] FINGERSTICK GLU 102 mg/dL Normal 74-106 [facility] Comment on above: Result Comment: TALIA GEMENT OF PATIENT CARE PER NURSING PROTOCOL Performed By: #### L 501.080 ####[facility] [address] [place], [address] CBC W/Diff, Automatedon 09-0 8-2025 Absolute Lymph 1.83 X10 3/uL Normal 0.83-4.51 [facility] Comment on above: Performed By: #### L 100.0100, L500.2500 ####[facility] [address] [place], [address] Absolute Neut 3.5 X10 3/uL Normal 2.0-7.7 [facility] Comment on above: Performed By: #### L 100.0100, L500.2500 ####[facility] [address] [place], [address] Basophils/100 WBC (Bld) 0.8 % Normal 0-1 [facility] Comment on above: Performed By: #### L 100.0100, L500.2500 ####[facility] [address] [place], [address] Eosinophils/100 WBC (Bld) 1.3 % Normal 0-5 [facility] Comment on above: Performed By: #### L 100.0100, L500.2500 ####[facility] [address] [place], [address] Erythrocyte distribution width (RBC) [Ratio] 15.0 % High 11.6-14.6 [facility] Comment on above: Performed By: #### L 100.0100, L500.2500 ####[facility] [address] [place], [address] Hematocrit (Bld) [Volume fraction] 34.4 % Low 37-47 [facility] Comment on above: Performed By: #### L 100.0100, L500.2500 ####[facility] [address] [place], [address] Hemoglobin (Bld) [Mass/Vol] 10.8 g/dL Low 12.0-15.0 [facility] Comment on above: Performed By: #### L 100.0100, L500.2500 ####[facility] [address] [place], [address] IG% 0.700 Normal 0.0-0.9 [facility] Comment on above: Result Comment: IG% - Immature Granulocytes (promyelocytes, myelocytes andmetamyelocytes) > 1% indicates that a LEFT SHIFT is Present. Performed By: #### L 100.0100, L500.2500 ####[facility] [address] [place], [address] Lymphocytes/100 WBC (Bld) 30.8 % Normal 19-41 [facility] Comment on above: Performed By: #### L 100.0100, L500.2500 ####[facility] [address] [place], [address] MCH (RBC) [Entitic mass] 27.1 pg Normal 27.0-32.0 [facility] Comment on above: Performed By: #### L 100.0100, L500.2500 ####[facility] [address] [place], [address] MCHC (RBC) [Mass/Vol] 31.4 g/dL Low 32-36 [facility] Comment on above: Performed By: #### L 100.0100, L500.2500 ####[facility] [address] [place], [address] MCV (RBC) [Entitic vol] 86.2 fL Normal 81-99 [facility] Comment on above: Performed By: #### L 100.0100, L500.2500 ####[facility] [address] [place], [address] Monocytes/100 WBC (Bld) 7.7 % Normal 0-10 [facility] Comment on above: Performed By: #### L 100.0100, L500.2500 ####[facility] [address] [place], [address] Neutrophils/100 WBC (Bld) 58.7 % Normal 47-70 [facility] Comment on above: Performed By: #### L 100.0100, L500.2500 ####[facility] [address] [place], [address] Nucleated RBC (Bld) [#/Vol] 0 10*3/uL Normal 0-5 [facility] Comment on above: Performed By: #### L 100.0100, L500.2500 ####[facility] [address] [place], [address] Platelet mean volume (Bld) [Entitic vol] 9.3 fL Normal 6.2-12.0 [facility] Comment on above: Performed By: #### L 100.0100, L500.2500 ####[facility] [address] [place], [address] Platelets (Bld) [#/Vol] 221 10*3/uL Normal 150-450 [facility] Comment on above: Performed By: #### L 100.0100, L500.2500 ####[facility] [address] [place], [address] RBC (Bld) [#/Vol] 3.99 10*6/uL Low 4.2-5.4 [facility] Comment on above: Performed By: #### L 100.0100, L500.2500 ####[facility] [address] [place], [address] RDW SD 47.5 fl High 35.1-43.9 [facility] Comment on above: Performed By: #### L 100.0100, L500.2500 ####[facility] [address] [place], [address] WBC (Bld) [#/Vol] 6.0 10*3/uL Normal 4.4-11.0 [facility] Comment on above: Performed By: #### L 100.0100, L500.2500 ####[facility] [address] [place], [address] Vitamin D,25 Hydroxyon 02-09 Vitamin D 25-OH 13.2 ng/mL Low 30-100 [facility] Comment on above: Result Comment: Charissa min D StatusDeficiency: <20 ng/mL (50nmol/L)Insufficiency: 20-30 ng/mL (50-75 nmol/L)Sufficiency: 30-100 ng/mL (75-250 nmol/L)Toxicity: >100 ng/mL (>250 nmol/L) Performed By: #### L 506.1001 ####[facility] [address] [place], [address] Basic Metabolic Profile (BMP )on 02-08-2025 BUN/CRE 38.6 RATIO High 10-20 [facility] Comment on above: Performed By: #### L 500.2500, L100.0100 ####[facility] [address] [place], [address] Calcium [Mass/Vol] 9.0 mg/dL Normal 7.6-11.0 [facility] Comment on above: Performed By: #### L 500.2500, L100.0100 ####[facility] [address] [place], [address] Chloride [Moles/Vol] 105 mmol/L Normal 98-108 [facility] Comment on above: Performed By: #### L 500.2500, L100.0100 ####[facility] [address] [place], [address] CO2 [Moles/Vol] 24.7 mmol/L Normal 21.0-32.0 [facility] Comment on above: Performed By: #### L 500.2500, L100.0100 ####[facility] [address] [place], [address] Creatinine [Mass/Vol] 0.70 mg/dL Normal 0.70-1.20 [facility] Comment on above: Performed By: #### L 500.2500, L100.0100 ####[facility] [address] [place], [address] ECRCL 101.04 ml/min Normal 50-250 [facility] Comment on above: Performed By: #### L 500.2500, L100.0100 ####[facility] [address] [place], [address] GAP 9 Normal 5-15 [facility] Comment on above: Performed By: #### L 500.2500, L100.0100 ####[facility] [address] [place], [address] GFR/1.73 sq M.predicted among non-blacks MDRD (S/P/Bld) [Vol rate/Area] 103 mL/min/{1.73_m2} Normal >60 [facility] Comment on above: Result Comment: mL/m in/1.73m2 CKD-EPI Creatinine Equation (2020) Performed By: #### L 500.2500, L100.0100 ####[facility] [address] [place], [address] Glucose [Mass/Vol] 102 mg/dL High 70-99 [facility] Comment on above: Performed By: #### L 500.2500, L100.0100 ####[facility] [address] [place], [address] Potassium [Moles/Vol] 4.3 mmol/L Normal 3.3-5.1 [facility] Comment on above: Performed By: #### L 500.2500, L100.0100 ####[facility] [address] [place], [address] Sodium [Moles/Vol] 139 mmol/L Normal 133-145 [facility] Comment on above: Performed By: #### L 500.2500, L100.0100 ####[facility] [address] [place], [address] Urea nitrogen [Mass/Vol] 27 mg/dL High 4-19 [facility] Comment on above: Performed By: #### L 500.2500, L100.0100 ####[facility] [address] [place], [address] Bedside Glucoseon 02-08-2025 FINGERSTICK GLU 172 mg/dL High 74-106 [facility] Comment on above: Result Comment: TALIA GEMENT OF PATIENT CARE PER NURSING PROTOCOL Performed By: #### L 501.080 ####[facility] [address] [place], [address] FINGERSTICK GLU 153 mg/dL High 74-106 [facility] Comment on above: Result Comment: TALIA GEMENT OF PATIENT CARE PER NURSING PROTOCOL Performed By: #### L 501.080 ####[facility] [address] [place], [address] FINGERSTICK GLU 151 mg/dL High 74-106 [facility] Comment on above: Result Comment: TALIA GEMENT OF PATIENT CARE PER NURSING PROTOCOL Performed By: #### L 501.080 ####[facility] [address] [place], [address] FINGERSTICK GLU 107 mg/dL High 74-106 [facility] Comment on above: Result Comment: TALIA GEMENT OF PATIENT CARE PER NURSING PROTOCOL Performed By: #### L 501.080 ####[facility] [address] [place], [address] CBC W/Diff, Automatedon 09-0 7-2024 Absolute Lymph 1.60 X10 3/uL Normal 0.83-4.51 [facility] Comment on above: Performed By: #### L 500.2500, L100.0100 ####[facility] [address] [place], [address] Absolute Neut 3.4 X10 3/uL Normal 2.0-7.7 [facility] Comment on above: Performed By: #### L 500.2500, L100.0100 ####[facility] [address] [place], [address] Basophils/100 WBC (Bld) 0.9 % Normal 0-1 [facility] Comment on above: Performed By: #### L 500.2500, L100.0100 ####[facility] [address] [place], [address] Eosinophils/100 WBC (Bld) 1.2 % Normal 0-5 [facility] Comment on above: Performed By: #### L 500.2500, L100.0100 ####[facility] [address] [place], [address] Erythrocyte distribution width (RBC) [Ratio] 15.0 % High 11.6-14.6 [facility] Comment on above: Performed By: #### L 500.2500, L100.0100 ####[facility] [address] [place], [address] Hematocrit (Bld) [Volume fraction] 33.3 % Low 37-47 [facility] Comment on above: Performed By: #### L 500.2500, L100.0100 ####[facility] [address] [place], [address] Hemoglobin (Bld) [Mass/Vol] 10.6 g/dL Low 12.0-15.0 [facility] Comment on above: Performed By: #### L 500.2500, L100.0100 ####[facility] [address] [place], [address] IG% 0.700 Normal 0.0-0.9 [facility] Comment on above: Result Comment: IG% - Immature Granulocytes (promyelocytes, myelocytes andmetamyelocytes) > 1% indicates that a LEFT SHIFT is Present. Performed By: #### L 500.2500, L100.0100 ####[facility] [address] [place], [address] Lymphocytes/100 WBC (Bld) 28.0 % Normal 19-41 [facility] Comment on above: Performed By: #### L 500.2500, L100.0100 ####[facility] [address] [place], [address] MCH (RBC) [Entitic mass] 27.5 pg Normal 27.0-32.0 [facility] Comment on above: Performed By: #### L 500.2500, L100.0100 ####[facility] [address] [place], [address] MCHC (RBC) [Mass/Vol] 31.8 g/dL Low 32-36 [facility] Comment on above: Performed By: #### L 500.2500, L100.0100 ####[facility] [address] [place], [address] MCV (RBC) [Entitic vol] 86.5 fL Normal 81-99 [facility] Comment on above: Performed By: #### L 500.2500, L100.0100 ####[facility] [address] [place], [address] Monocytes/100 WBC (Bld) 9.3 % Normal 0-10 [facility] Comment on above: Performed By: #### L 500.2500, L100.0100 ####[facility] [address] [place], [address] Neutrophils/100 WBC (Bld) 59.9 % Normal 47-70 [facility] Comment on above: Performed By: #### L 500.2500, L100.0100 ####[facility] [address] [place], [address] Nucleated RBC (Bld) [#/Vol] 0 10*3/uL Normal 0-5 [facility] Comment on above: Performed By: #### L 500.2500, L100.0100 ####[facility] [address] [place], [address] Platelet mean volume (Bld) [Entitic vol] 9.6 fL Normal 6.2-12.0 [facility] Comment on above: Performed By: #### L 500.2500, L100.0100 ####[facility] [address] [place], [address] Platelets (Bld) [#/Vol] 211 10*3/uL Normal 150-450 [facility] Comment on above: Performed By: #### L 500.2500, L100.0100 ####[facility] [address] [place], [address] RBC (Bld) [#/Vol] 3.85 10*6/uL Low 4.2-5.4 [facility] Comment on above: Performed By: #### L 500.2500, L100.0100 ####[facility] [address] [place], [address] RDW SD 47.4 fl High 35.1-43.9 [facility] Comment on above: Performed By: #### L 500.2500, L100.0100 ####[facility] [address] [place], [address] WBC (Bld) [#/Vol] 5.7 10*3/uL Normal 4.4-11.0 [facility] Comment on above: Performed By: #### L 500.2500, L100.0100 ####[facility] [address] [place], [address] Basic Metabolic Profile (BMP )on 02-07-2025 BUN/CRE 24.5 RATIO High 10-20 [facility] Comment on above: Performed By: #### L 100.0100, L500.2500 ####[facility] [address] [place], [address] Calcium [Mass/Vol] 8.6 mg/dL Normal 7.6-11.0 [facility] Comment on above: Performed By: #### L 100.0100, L500.2500 ####[facility] [address] [place], [address] Chloride [Moles/Vol] 104 mmol/L Normal 98-108 [facility] Comment on above: Performed By: #### L 100.0100, L500.2500 ####[facility] [address] [place], [address] CO2 [Moles/Vol] 24.8 mmol/L Normal 21.0-32.0 [facility] Comment on above: Performed By: #### L 100.0100, L500.2500 ####[facility] [address] [place], [address] Creatinine [Mass/Vol] 0.92 mg/dL Normal 0.70-1.20 [facility] Comment on above: Performed By: #### L 100.0100, L500.2500 ####[facility] [address] [place], [address] ECRCL 77.68 ml/min Normal 50-250 [facility] Comment on above: Performed By: #### L 100.0100, L500.2500 ####[facility] [address] [place], [address] GAP 10 Normal 5-15 [facility] Comment on above: Performed By: #### L 100.0100, L500.2500 ####[facility] [address] [place], [address] GFR/1.73 sq M.predicted among non-blacks MDRD (S/P/Bld) [Vol rate/Area] 74 mL/min/{1.73_m2} Normal >60 [facility] Comment on above: Result Comment: mL/m in/1.73m2 CKD-EPI Creatinine Equation (2020) Performed By: #### L 100.0100, L500.2500 ####[facility] [address] [place], [address] Glucose [Mass/Vol] 179 mg/dL High 70-99 [facility] Comment on above: Performed By: #### L 100.0100, L500.2500 ####[facility] [address] [place], [address] Potassium [Moles/Vol] 4.5 mmol/L Normal 3.3-5.1 [facility] Comment on above: Result Comment: Hemo lysis present, Results??could be affected.?? Performed By: #### L 100.0100, L500.2500 ####[facility] [address] [place], [address] Sodium [Moles/Vol] 139 mmol/L Normal 133-145 [facility] Comment on above: Performed By: #### L 100.0100, L500.2500 ####[facility] [address] [place], [address] Urea nitrogen [Mass/Vol] 23 mg/dL High 4-19 [facility] Comment on above: Performed By: #### L 100.0100, L500.2500 ####[facility] [address] [place], [address] Bedside Glucoseon 02-07-2025 FINGERSTICK GLU 122 mg/dL High 74-106 [facility] Comment on above: Result Comment: TALIA GEMENT OF PATIENT CARE PER NURSING PROTOCOL Performed By: #### L 501.080 ####[facility] [address] [place], [address] FINGERSTICK GLU 99 mg/dL Normal 74-106 [facility] Comment on above: Result Comment: TALIA GEMENT OF PATIENT CARE PER NURSING PROTOCOL Performed By: #### L 501.080 ####[facility] [address] [place], [address] FINGERSTICK GLU 160 mg/dL High 74-106 [facility] Comment on above: Result Comment: TALIA GEMENT OF PATIENT CARE PER NURSING PROTOCOL Performed By: #### L 501.080 ####[facility] [address] [place], [address] FINGERSTICK GLU 176 mg/dL High 74-106 [facility] Comment on above: Result Comment: TALIA GEMENT OF PATIENT CARE PER NURSING PROTOCOL Performed By: #### L 501.080 ####[facility] [address] [place], [address] CBC W/Diff, Automatedon 09-0 Absolute Lymph 1.88 X10 3/uL Normal 0.83-4.51 [facility] Comment on above: Performed By: #### L 100.0100, L500.2500 ####[facility] [address] [place], [address] Absolute Neut 2.8 X10 3/uL Normal 2.0-7.7 [facility] Comment on above: Performed By: #### L 100.0100, L500.2500 ####[facility] [address] [place], [address] Basophils/100 WBC (Bld) 0.9 % Normal 0-1 [facility] Comment on above: Performed By: #### L 100.0100, L500.2500 ####[facility] [address] [place], [address] Eosinophils/100 WBC (Bld) 1.3 % Normal 0-5 [facility] Comment on above: Performed By: #### L 100.0100, L500.2500 ####[facility] [address] [place], [address] Erythrocyte distribution width (RBC) [Ratio] 15.0 % High 11.6-14.6 [facility] Comment on above: Performed By: #### L 100.0100, L500.2500 ####[facility] [address] [place], [address] Hematocrit (Bld) [Volume fraction] 33.0 % Low 37-47 [facility] Comment on above: Performed By: #### L 100.0100, L500.2500 ####[facility] [address] [place], [address] Hemoglobin (Bld) [Mass/Vol] 10.4 g/dL Low 12.0-15.0 [facility] Comment on above: Performed By: #### L 100.0100, L500.2500 ####[facility] [address] [place], [address] IG% 0.600 Normal 0.0-0.9 [facility] Comment on above: Result Comment: IG% - Immature Granulocytes (promyelocytes, myelocytes andmetamyelocytes) > 1% indicates that a LEFT SHIFT is Present. Performed By: #### L 100.0100, L500.2500 ####[facility] [address] [place], [address] Lymphocytes/100 WBC (Bld) 35.5 % Normal 19-41 [facility] Comment on above: Performed By: #### L 100.0100, L500.2500 ####[facility] [address] [place], [address] MCH (RBC) [Entitic mass] 27.3 pg Normal 27.0-32.0 [facility] Comment on above: Performed By: #### L 100.0100, L500.2500 ####[facility] [address] [place], [address] MCHC (RBC) [Mass/Vol] 31.5 g/dL Low 32-36 [facility] Comment on above: Performed By: #### L 100.0100, L500.2500 ####[facility] [address] [place], [address] MCV (RBC) [Entitic vol] 86.6 fL Normal 81-99 [facility] Comment on above: Performed By: #### L 100.0100, L500.2500 ####[facility] [address] [place], [address] Monocytes/100 WBC (Bld) 8.5 % Normal 0-10 [facility] Comment on above: Performed By: #### L 100.0100, L500.2500 ####[facility] [address] [place], [address] Neutrophils/100 WBC (Bld) 53.2 % Normal 47-70 [facility] Comment on above: Performed By: #### L 100.0100, L500.2500 ####[facility] [address] [place], [address] Nucleated RBC (Bld) [#/Vol] 0 10*3/uL Normal 0-5 [facility] Comment on above: Performed By: #### L 100.0100, L500.2500 ####[facility] [address] [place], [address] Platelet mean volume (Bld) [Entitic vol] 9.6 fL Normal 6.2-12.0 [facility] Comment on above: Performed By: #### L 100.0100, L500.2500 ####[facility] [address] [place], [address] Platelets (Bld) [#/Vol] 216 10*3/uL Normal 150-450 [facility] Comment on above: Performed By: #### L 100.0100, L500.2500 ####[facility] [address] [place], [address] RBC (Bld) [#/Vol] 3.81 10*6/uL Low 4.2-5.4 [facility] Comment on above: Performed By: #### L 100.0100, L500.2500 ####[facility] [address] [place], [address] RDW SD 47.6 fl High 35.1-43.9 [facility] Comment on above: Performed By: #### L 100.0100, L500.2500 ####[facility] [address] [place], [address] WBC (Bld) [#/Vol] 5.3 10*3/uL Normal 4.4-11.0 [facility] Comment on above: Performed By: #### L 100.0100, L500.2500 ####[facility] [address] [place], [address] Basic Metabolic Profile (BMP )on 02-06-2025 BUN/CRE 32.2 RATIO High 10-20 [facility] Comment on above: Performed By: #### L 500.2500, L100.0100 ####[facility] [address] [place], [address] Calcium [Mass/Vol] 8.5 mg/dL Normal 7.6-11.0 [facility] Comment on above: Performed By: #### L 500.2500, L100.0100 ####[facility] [address] [place], [address] Chloride [Moles/Vol] 103 mmol/L Normal 98-108 [facility] Comment on above: Performed By: #### L 500.2500, L100.0100 ####[facility] [address] [place], [address] CO2 [Moles/Vol] 24.1 mmol/L Normal 21.0-32.0 [facility] Comment on above: Performed By: #### L 500.2500, L100.0100 ####[facility] [address] [place], [address] Creatinine [Mass/Vol] 0.76 mg/dL Normal 0.70-1.20 [facility] Comment on above: Performed By: #### L 500.2500, L100.0100 ####[facility] [address] [place], [address] ECRCL 93.87 ml/min Normal 50-250 [facility] Comment on above: Performed By: #### L 500.2500, L100.0100 ####[facility] [address] [place], [address] GAP 10 Normal 5-15 [facility] Comment on above: Performed By: #### L 500.2500, L100.0100 ####[facility] [address] [place], [address] GFR/1.73 sq M.predicted among non-blacks MDRD (S/P/Bld) [Vol rate/Area] 94 mL/min/{1.73_m2} Normal >60 [facility] Comment on above: Result Comment: mL/m in/1.73m2 CKD-EPI Creatinine Equation (2020) Performed By: #### L 500.2500, L100.0100 ####[facility] [address] [place], [address] Glucose [Mass/Vol] 221 mg/dL High 70-99 [facility] [facility] Comment on above: Performed By: #### L 500.2500, L100.0100 ####[facility] [address] [place], [address] Potassium [Moles/Vol] 4.4 mmol/L Normal 3.3-5.1 [facility] Comment on above: Result Comment: Hemo lysis present, Results??could be affected.?? Performed By: #### L 500.2500, L100.0100 ####[facility] [address] [place], [address] Sodium [Moles/Vol] 137 mmol/L Normal 133-145 [facility] Comment on above: Performed By: #### L 500.2500, L100.0100 ####[facility] [address] [place], [address] Urea nitrogen [Mass/Vol] 24 mg/dL High 4-19 [facility] Comment on above: Performed By: #### L 500.2500, L100.0100 ####[facility] [address] [place], [address] Bedside Glucoseon 02-06-2025 FINGERSTICK GLU 181 mg/dL High 74-106 [facility] Comment on above: Result Comment: TALIA TRISH OF PATIENT CARE PER NURSING PROTOCOL Performed By: #### L 501.080 ####[facility] [address] [place], [address] FINGERSTICK GLU 170 mg/dL High 74-106 [facility] Comment on above: Result Comment: TALIA GEMENT OF PATIENT CARE PER NURSING PROTOCOL Performed By: #### L 501.080 ####[facility] [address] [place], [address] FINGERSTICK GLU 159 mg/dL High 74-106 [facility] Comment on above: Result Comment: TALIA GEMENT OF PATIENT CARE PER NURSING PROTOCOL Performed By: #### L 501.080 ####[facility] [address] [place], [address] FINGERSTICK GLU 236 mg/dL High 74-106 [facility] Comment on above: Result Comment: TALIA GEMENT OF PATIENT CARE PER NURSING PROTOCOL Performed By: #### L 501.080 ####[facility] [address] [place], [address] CBC W/Diff, Automatedon 09-0 5-2025 Absolute Lymph 1.58 X10 3/uL Normal 0.83-4.51 [facility] Comment on above: Performed By: #### L 500.2500, L100.0100 ####[facility] [address] [place], [address] Absolute Neut 3.3 X10 3/uL Normal 2.0-7.7 [facility] Comment on above: Performed By: #### L 500.2500, L100.0100 ####[facility] [address] [place], [address] Basophils/100 WBC (Bld) 1.1 % High 0-1 [facility] Comment on above: Performed By: #### L 500.2500, L100.0100 ####[facility] [address] [place], [address] Eosinophils/100 WBC (Bld) 1.6 % Normal 0-5 [facility] Comment on above: Performed By: #### L 500.2500, L100.0100 ####[facility] [address] [place], [address] Erythrocyte distribution width (RBC) [Ratio] 14.7 % High 11.6-14.6 [facility] Comment on above: Performed By: #### L 500.2500, L100.0100 ####[facility] [address] [place], [address] Hematocrit (Bld) [Volume fraction] 32.7 % Low 37-47 [facility] Comment on above: Performed By: #### L 500.2500, L100.0100 ####[facility] [address] [place], [address] Hemoglobin (Bld) [Mass/Vol] 10.4 g/dL Low 12.0-15.0 [facility] Comment on above: Performed By: #### L 500.2500, L100.0100 ####[facility] [address] [place], [address] IG% 0.400 Normal 0.0-0.9 [facility] Comment on above: Result Comment: IG% - Immature Granulocytes (promyelocytes, myelocytes andmetamyelocytes) > 1% indicates that a LEFT SHIFT is Present. Performed By: #### L 500.2500, L100.0100 ####[facility] [address] [place], [address] Lymphocytes/100 WBC (Bld) 28.8 % Normal 19-41 [facility] Comment on above: Performed By: #### L 500.2500, L100.0100 ####[facility] [address] [place], [address] MCH (RBC) [Entitic mass] 27.2 pg Normal 27.0-32.0 [facility] Comment on above: Performed By: #### L 500.2500, L100.0100 ####[facility] [address] [place], [address] MCHC (RBC) [Mass/Vol] 31.8 g/dL Low 32-36 [facility] Comment on above: Performed By: #### L 500.2500, L100.0100 ####[facility] [address] [place], [address] MCV (RBC) [Entitic vol] 85.6 fL Normal 81-99 [facility] Comment on above: Performed By: #### L 500.2500, L100.0100 ####[facility] [address] [place], [address] Monocytes/100 WBC (Bld) 7.8 % Normal 0-10 [place] Comment on above: Performed By: #### L 500.2500, L100.0100 ####[facility] [address] [place], [address] Neutrophils/100 WBC (Bld) 60.3 % Normal 47-70 [facility] Comment on above: Performed By: #### L 500.2500, L100.0100 ####[facility] [address] [place], [address] Nucleated RBC (Bld) [#/Vol] 0 10*3/uL Normal 0-5 [facility] Comment on above: Performed By: #### L 500.2500, L100.0100 ####[facility] [address] [place], [address] Platelet mean volume (Bld) [Entitic vol] 9.6 fL Normal 6.2-12.0 [facility] Comment on above: Performed By: #### L 500.2500, L100.0100 ####[facility] [address] [place], [address] Platelets (Bld) [#/Vol] 206 10*3/uL Normal 150-450 [facility] Comment on above: Performed By: #### L 500.2500, L100.0100 ####[facility] [address] [place], [address] RBC (Bld) [#/Vol] 3.82 10*6/uL Low 4.2-5.4 [facility] Comment on above: Performed By: #### L 500.2500, L100.0100 ####[facility] [address] [place], [address] RDW SD 46.6 fl High 35.1-43.9 [facility] Comment on above: Performed By: #### L 500.2500, L100.0100 ####[facility] [address] [place], [address] WBC (Bld) [#/Vol] 5.5 10*3/uL Normal 4.4-11.0 [facility] Comment on above: Performed By: #### L 500.2500, L100.0100 ####[facility] [address] [place], [address] Basic Metabolic Profile (BMP )on 02-05-2025 BUN/CRE 30.6 RATIO High 10-20 [facility] Comment on above: Performed By: #### L 500.2500, L100.0100 ####[facility] [address] [place], [address] Calcium [Mass/Vol] 8.5 mg/dL Normal 7.6-11.0 [facility] Comment on above: Performed By: #### L 500.2500, L100.0100 ####[facility] [address] [place], [address] Chloride [Moles/Vol] 105 mmol/L Normal 98-108 [facility] Comment on above: Performed By: #### L 500.2500, L100.0100 ####[facility] [address] [place], [address] CO2 [Moles/Vol] 26.9 mmol/L Normal 21.0-32.0 [facility] Comment on above: Performed By: #### L 500.2500, L100.0100 ####[facility] [address] [place], [address] Creatinine [Mass/Vol] 0.74 mg/dL Normal 0.70-1.20 [facility] Comment on above: Performed By: #### L 500.2500, L100.0100 ####[facility] [address] [place], [address] ECRCL 96.41 ml/min Normal 50-250 [facility] Comment on above: Performed By: #### L 500.2500, L100.0100 ####[facility] [address] [place], [address] GAP 8 Normal 5-15 [facility] Comment on above: Performed By: #### L 500.2500, L100.0100 ####[facility] [address] [place], [address] GFR/1.73 sq M.predicted among non-blacks MDRD (S/P/Bld) [Vol rate/Area] 97 mL/min/{1.73_m2} Normal >60 [facility] Comment on above: Result Comment: mL/m in/1.73m2 CKD-EPI Creatinine Equation (2020) Performed By: #### L 500.2500, L100.0100 ####[facility] [address] [place], [address] Glucose [Mass/Vol] 169 mg/dL High 70-99 [facility] Comment on above: Performed By: #### L 500.2500, L100.0100 ####[facility] [address] [place], [address] Potassium [Moles/Vol] 4.7 mmol/L Normal 3.3-5.1 [facility] Comment on above: Performed By: #### L 500.2500, L100.0100 ####[facility] [address] [place], [address] Sodium [Moles/Vol] 140 mmol/L Normal 133-145 [facility] Comment on above: Performed By: #### L 500.2500, L100.0100 ####[facility] [address] [place], [address] Urea nitrogen [Mass/Vol] 23 mg/dL High 4-19 [facility] Comment on above: Performed By: #### L 500.2500, L100.0100 ####[facility] [address] [place], [address] Bedside Glucoseon 02-05-2025 FINGERSTICK GLU 215 mg/dL High 74-106 [facility] Comment on above: Result Comment: TALIA GEMENT OF PATIENT CARE PER NURSING PROTOCOL Performed By: #### L 501.080 ####[facility] [address] [place], [address] FINGERSTICK GLU 146 mg/dL High 74-106 [facility] Comment on above: Result Comment: TALIA GEMENT OF PATIENT CARE PER NURSING PROTOCOL Performed By: #### L 501.080 ####[facility] [address] [place], [address] FINGERSTICK GLU 109 mg/dL High 74-106 [facility] Comment on above: Result Comment: TALIA GEMENT OF PATIENT CARE PER NURSING PROTOCOL Performed By: #### L 501.080 ####[facility] [address] [place], [address] FINGERSTICK GLU 291 mg/dL High 74-106 [facility] Comment on above: Result Comment: TALIA GEMENT OF PATIENT CARE PER NURSING PROTOCOL Performed By: #### L 501.080 ####[facility] [address] [place], [address] CBC W/Diff, Automatedon 09-0 -2024 Absolute Lymph 1.95 X10 3/uL Normal 0.83-4.51 [facility] Comment on above: Performed By: #### L 500.2500, L100.0100 ####[facility] [address] [place], [address] Absolute Neut 3.3 X10 3/uL Normal 2.0-7.7 [facility] Comment on above: Performed By: #### L 500.2500, L100.0100 ####[facility] [address] [place], [address] Basophils/100 WBC (Bld) 0.7 % Normal 0-1 [facility] Comment on above: Performed By: #### L 500.2500, L100.0100 ####[facility] [address] [place], [address] Eosinophils/100 WBC (Bld) 1.4 % Normal 0-5 [facility] Comment on above: Performed By: #### L 500.2500, L100.0100 ####[facility] [address] [place], [address] Erythrocyte distribution width (RBC) [Ratio] 15.2 % High 11.6-14.6 [facility] Comment on above: Performed By: #### L 500.2500, L100.0100 ####[facility] [address] [place], [address] Hematocrit (Bld) [Volume fraction] 33.8 % Low 37-47 [facility] Comment on above: Performed By: #### L 500.2500, L100.0100 ####[facility] [address] [place], [address] Hemoglobin (Bld) [Mass/Vol] 10.5 g/dL Low 12.0-15.0 [facility] Comment on above: Performed By: #### L 500.2500, L100.0100 ####[facility] [address] [place], [address] IG% 0.500 Normal 0.0-0.9 [facility] Comment on above: Result Comment: IG% - Immature Granulocytes (promyelocytes, myelocytes andmetamyelocytes) > 1% indicates that a LEFT SHIFT is Present. Performed By: #### L 500.2500, L100.0100 ####[facility] [address] [place], [address] Lymphocytes/100 WBC (Bld) 33.6 % Normal 19-41 [facility] Comment on above: Performed By: #### L 500.2500, L100.0100 ####[facility] [address] [place], [address] MCH (RBC) [Entitic mass] 27.1 pg Normal 27.0-32.0 [facility] Comment on above: Performed By: #### L 500.2500, L100.0100 ####[facility] [address] [place], [address] MCHC (RBC) [Mass/Vol] 31.1 g/dL Low 32-36 [facility] Comment on above: Performed By: #### L 500.2500, L100.0100 ####[facility] [address] [place], [address] MCV (RBC) [Entitic vol] 87.3 fL Normal 81-99 [place] Comment on above: Performed By: #### L 500.2500, L100.0100 ####[facility] [address] [place], [address] Monocytes/100 WBC (Bld) 7.8 % Normal 0-10 [place] Comment on above: Performed By: #### L 500.2500, L100.0100 ####[facility] [address] [place], [address] Neutrophils/100 WBC (Bld) 56.0 % Normal 47-70 [facility] Comment on above: Performed By: #### L 500.2500, L100.0100 ####[facility] [address] [place], [address] Nucleated RBC (Bld) [#/Vol] 0 10*3/uL Normal 0-5 [facility] Comment on above: Performed By: #### L 500.2500, L100.0100 ####[facility] [address] [place], [address] Platelet mean volume (Bld) [Entitic vol] 9.9 fL Normal 6.2-12.0 [facility] Comment on above: Performed By: #### L 500.2500, L100.0100 ####[facility] [address] [place], [address] Platelets (Bld) [#/Vol] 206 10*3/uL Normal 150-450 [facility] Comment on above: Performed By: #### L 500.2500, L100.0100 ####[facility] [address] [place], [address] RBC (Bld) [#/Vol] 3.87 10*6/uL Low 4.2-5.4 [facility] Comment on above: Performed By: #### L 500.2500, L100.0100 ####[facility] [address] [place], [address] RDW SD 48.6 fl High 35.1-43.9 [facility] Comment on above: Performed By: #### L 500.2500, L100.0100 ####[facility] [address] [place], [address] WBC (Bld) [#/Vol] 5.8 10*3/uL Normal 4.4-11.0 [facility] Comment on above: Performed By: #### L 500.2500, L100.0100 ####[facility] [address] [place], [address] Basic Metabolic Profile (BMP )on 02-04-2025 BUN/CRE 34.9 RATIO High 10-20 [facility] Comment on above: Performed By: #### L 100.0100, L500.2500 ####[facility] [address] [place], [address] Calcium [Mass/Vol] 8.7 mg/dL Normal 7.6-11.0 [facility] Comment on above: Performed By: #### L 100.0100, L500.2500 ####[facility] [address] [place], [address] Chloride [Moles/Vol] 106 mmol/L Normal 98-108 [facility] Comment on above: Performed By: #### L 100.0100, L500.2500 ####[facility] [address] [place], [address] CO2 [Moles/Vol] 25.4 mmol/L Normal 21.0-32.0 [facility] Comment on above: Performed By: #### L 100.0100, L500.2500 ####[facility] [address] [place], [address] Creatinine [Mass/Vol] 0.87 mg/dL Normal 0.70-1.20 [facility] Comment on above: Performed By: #### L 100.0100, L500.2500 ####[facility] [address] [place], [address] ECRCL 80.49 ml/min Normal 50-250 [facility] Comment on above: Performed By: #### L 100.0100, L500.2500 ####[facility] [address] [place], [address] GAP 7 Normal 5-15 [facility] Comment on above: Performed By: #### L 100.0100, L500.2500 ####[facility] [address] [place], [address] GFR/1.73 sq M.predicted among non-blacks MDRD (S/P/Bld) [Vol rate/Area] 79 mL/min/{1.73_m2} Normal >60 [facility] Comment on above: Result Comment: mL/m in/1.73m2 CKD-EPI Creatinine Equation (2020) Performed By: #### L 100.0100, L500.2500 ####[facility] [address] [place], [address] Glucose [Mass/Vol] 160 mg/dL High 70-99 [facility] Comment on above: Performed By: #### L 100.0100, L500.2500 ####[facility] [address] [place], [address] Potassium [Moles/Vol] 5.2 mmol/L High 3.3-5.1 [facility] Comment on above: Performed By: #### L 100.0100, L500.2500 ####[facility] [address] [place], [address] Sodium [Moles/Vol] 139 mmol/L Normal 133-145 [facility] Comment on above: Performed By: #### L 100.0100, L500.2500 ####[facility] [address] [place], [address] Urea nitrogen [Mass/Vol] 31 mg/dL High 4-19 [facility] Comment on above: Performed By: #### L 100.0100, L500.2500 ####[facility] [address] [place], [address] Bedside Glucoseon 02-04-2025 FINGERSTICK GLU 151 mg/dL High 74-106 [facility] Comment on above: Result Comment: TALIA GEMENT OF PATIENT CARE PER NURSING PROTOCOL Performed By: #### L 501.080 ####[facility] [address] [place], [address] FINGERSTICK GLU 179 mg/dL High 74-106 [facility] Comment on above: Result Comment: TALIA GEMENT OF PATIENT CARE PER NURSING PROTOCOL Performed By: #### L 501.080 ####[facility] [address] [place], [address] FINGERSTICK GLU 123 mg/dL High -106 [facility] Comment on above: Result Comment: TALIA GEMENT OF PATIENT CARE PER NURSING PROTOCOL Performed By: #### L 501.080 ####[facility] [address] [place], [address] FINGERSTICK GLU 301 mg/dL High [facility]106 [facility] Comment on above: Result Comment: TALIA GEMENT OF PATIENT CARE PER NURSING PROTOCOL Performed By: #### L 501.080 ####[facility] [address] [place], [address] CBC W/Diff, Automatedon Absolute Lymph 1.89 X10 3/uL Normal 0.83-4.51 [facility] Comment on above: Performed By: #### L 100.0100, L500.2500 ####[facility] [address] [place], [address] Absolute Neut 4.5 X10 3/uL Normal 2.0-7.7 [facility] Comment on above: Performed By: #### L 100.0100, L500.2500 ####[facility] [address] [place], [address] Basophils/100 WBC (Bld) 0.7 % Normal 0-1 [facility] Comment on above: Performed By: #### L 100.0100, L500.2500 ####[facility] [address] [place], [address] Eosinophils/100 WBC (Bld) 1.4 % Normal 0-5 [facility] Comment on above: Performed By: #### L 100.0100, L500.2500 ####[facility] [address] [place], [address] Erythrocyte distribution width (RBC) [Ratio] 15.1 % High 11.6-14.6 [facility] Comment on above: Performed By: #### L 100.0100, L500.2500 ####[facility] [address] [place], [address] Hematocrit (Bld) [Volume fraction] 33.7 % Low 37-47 [facility] Comment on above: Performed By: #### L 100.0100, L500.2500 ####[facility] [address] [place], [address] Hemoglobin (Bld) [Mass/Vol] 10.5 g/dL Low 12.0-15.0 [facility] Comment on above: Performed By: #### L 100.0100, L500.2500 ####[facility] [address] [place], [address] IG% 0.300 Normal 0.0-0.9 [facility] Comment on above: Result Comment: IG% - Immature Granulocytes (promyelocytes, myelocytes andmetamyelocytes) > 1% indicates that a LEFT SHIFT is Present. Performed By: #### L 100.0100, L500.2500 ####[facility] [address] [place], [address] Lymphocytes/100 WBC (Bld) 26.4 % Normal 19-41 [facility] Comment on above: Performed By: #### L 100.0100, L500.2500 ####[facility] [address] [place], [address] MCH (RBC) [Entitic mass] 27.0 pg Normal 27.0-32.0 [facility] Comment on above: Performed By: #### L 100.0100, L500.2500 ####[facility] [address] [place], [address] MCHC (RBC) [Mass/Vol] 31.2 g/dL Low 32-36 [facility] Comment on above: Performed By: #### L 100.0100, L500.2500 ####[facility] [address] [place], [address] MCV (RBC) [Entitic vol] 86.6 fL Normal 81-99 [facility] Comment on above: Performed By: #### L 100.0100, L500.2500 ####[facility] [address] [place], [address] Monocytes/100 WBC (Bld) 8.5 % Normal 0-10 [place] Comment on above: Performed By: #### L 100.0100, L500.2500 ####[facility] [address] [place], [address] Neutrophils/100 WBC (Bld) 62.7 % Normal 47-70 [facility] Comment on above: Performed By: #### L 100.0100, L500.2500 ####[facility] [address] [place], [address] Nucleated RBC (Bld) [#/Vol] 0 10*3/uL Normal 0-5 [facility] Comment on above: Performed By: #### L 100.0100, L500.2500 ####[facility] [address] [place], [address] Platelet mean volume (Bld) [Entitic vol] 9.5 fL Normal 6.2-12.0 [facility] Comment on above: Performed By: #### L 100.0100, L500.2500 ####[facility] [address] [place], [address] Platelets (Bld) [#/Vol] 194 10*3/uL Normal 150-450 [facility] Comment on above: Performed By: #### L 100.0100, L500.2500 ####[facility] [address] [place], [address] RBC (Bld) [#/Vol] 3.89 10*6/uL Low 4.2-5.4 [facility] Comment on above: Performed By: #### L 100.0100, L500.2500 ####[facility] [address] [place], [address] RDW SD 48.1 fl High 35.1-43.9 [facility] Comment on above: Performed By: #### L 100.0100, L500.2500 ####[facility] [address] [place], [address] WBC (Bld) [#/Vol] 7.2 10*3/uL Normal 4.4-11.0 [facility] Comment on above: Performed By: #### L 100.0100, L500.2500 ####[facility] [address] [place], [address] Basic Metabolic Profile (BMP )on 02-03-2025 BUN/CRE 32.2 RATIO High 10-20 [facility] Comment on above: Performed By: #### L 500.2500, L100.0100 ####[facility] [address] [place], [address] Calcium [Mass/Vol] 8.5 mg/dL Normal 7.6-11.0 [facility] Comment on above: Performed By: #### L 500.2500, L100.0100 ####[facility] [address] [place], [address] Chloride [Moles/Vol] 107 mmol/L Normal 98-108 [facility] Comment on above: Performed By: #### L 500.2500, L100.0100 ####[facility] [address] [place], [address] CO2 [Moles/Vol] 22.1 mmol/L Normal 21.0-32.0 [facility] Comment on above: Performed By: #### L 500.2500, L100.0100 ####[facility] [address] [place], [address] Creatinine [Mass/Vol] 0.92 mg/dL Normal 0.70-1.20 [facility] Comment on above: Performed By: #### L 500.2500, L100.0100 ####[facility] [address] [place], [address] ECRCL 76.12 ml/min Normal 50-250 [facility] Comment on above: Performed By: #### L 500.2500, L100.0100 ####[facility] [address] [place], [address] GAP 7 Normal 5-15 [facility] Comment on above: Performed By: #### L 500.2500, L100.0100 ####[facility] [address] [place], [address] GFR/1.73 sq M.predicted among non-blacks MDRD (S/P/Bld) [Vol rate/Area] 74 mL/min/{1.73_m2} Normal >60 [facility] Comment on above: Result Comment: mL/m in/1.73m2 CKD-EPI Creatinine Equation (2020) Performed By: #### L 500.2500, L100.0100 ####[facility] [address] [place], [address] Glucose [Mass/Vol] 119 mg/dL High 70-99 [facility] Comment on above: Performed By: #### L 500.2500, L100.0100 ####[facility] [address] [place], [address] Potassium [Moles/Vol] 5.2 mmol/L High 3.3-5.1 [facility] Comment on above: Result Comment: Hemo lysis present, Results??could be affected.?? Performed By: #### L 500.2500, L100.0100 ####[facility] [address] [place], [address] Sodium [Moles/Vol] 136 mmol/L Normal 133-145 [facility] Comment on above: Performed By: #### L 500.2500, L100.0100 ####[facility] [address] [place], [address] Urea nitrogen [Mass/Vol] 30 mg/dL High 4-19 [facility] Comment on above: Performed By: #### L 500.2500, L100.0100 ####[facility] [address] [place], [address] Bedside Glucoseon 02-03-2025 FINGERSTICK GLU 288 mg/dL High 74-106 [facility] Comment on above: Result Comment: TALIA GEMENT OF PATIENT CARE PER NURSING PROTOCOL Performed By: #### L 501.080 ####[facility] [address] [place], [address] FINGERSTICK GLU 172 mg/dL High 74-106 [facility] Comment on above: Result Comment: TALIA GEMENT OF PATIENT CARE PER NURSING PROTOCOL Performed By: #### L 501.080 ####[facility] [address] [place], [address] FINGERSTICK GLU 225 mg/dL High 74-106 [facility] Comment on above: Result Comment: TALIA GEMENT OF PATIENT CARE PER NURSING PROTOCOL Performed By: #### L 501.080 ####[facility] [address] [place], [address] FINGERSTICK GLU 159 mg/dL High 74-106 [facility] Comment on above: Result Comment: TALIA GEMENT OF PATIENT CARE PER NURSING PROTOCOL Performed By: #### L 501.080 ####[facility] [address] [place], [address] CBC W/Diff, Automatedon 09-0 2-2024 Absolute Lymph 1.87 X10 3/uL Normal 0.83-4.51 [facility] Comment on above: Performed By: #### L 500.2500, L100.0100 ####[facility] [address] [place], [address] Absolute Neut 3.9 X10 3/uL Normal 2.0-7.7 [facility] Comment on above: Performed By: #### L 500.2500, L100.0100 ####[facility] [address] [place], [address] Basophils/100 WBC (Bld) 0.6 % Normal 0-1 [facility] Comment on above: Performed By: #### L 500.2500, L100.0100 ####[facility] [address] [place], [address] Eosinophils/100 WBC (Bld) 1.4 % Normal 0-5 [facility] Comment on above: Performed By: #### L 500.2500, L100.0100 ####[facility] [address] [place], [address] Erythrocyte distribution width (RBC) [Ratio] 15.2 % High 11.6-14.6 [facility] Comment on above: Performed By: #### L 500.2500, L100.0100 ####[facility] [address] [place], [address] Hematocrit (Bld) [Volume fraction] 34.0 % Low 37-47 [facility] Comment on above: Performed By: #### L 500.2500, L100.0100 ####[facility] [address] [place], [address] Hemoglobin (Bld) [Mass/Vol] 10.8 g/dL Low 12.0-15.0 [facility] Comment on above: Performed By: #### L 500.2500, L100.0100 ####[facility] [address] [place], [address] IG% 0.500 Normal 0.0-0.9 [facility] Comment on above: Result Comment: IG% - Immature Granulocytes (promyelocytes, myelocytes andmetamyelocytes) > 1% indicates that a LEFT SHIFT is Present. Performed By: #### L 500.2500, L100.0100 ####[facility] [address] [place], [address] Lymphocytes/100 WBC (Bld) 29.2 % Normal 19-41 [facility] Comment on above: Performed By: #### L 500.2500, L100.0100 ####[facility] [address] [place], [address] MCH (RBC) [Entitic mass] 27.8 pg Normal 27.0-32.0 [facility] Comment on above: Performed By: #### L 500.2500, L100.0100 ####[facility] [address] [place], [address] MCHC (RBC) [Mass/Vol] 31.8 g/dL Low 32-36 [facility] Comment on above: Performed By: #### L 500.2500, L100.0100 ####[facility] [address] [place], [address] MCV (RBC) [Entitic vol] 87.6 fL Normal 81-99 [facility] Comment on above: Performed By: #### L 500.2500, L100.0100 ####[facility] [address] [place], [address] Monocytes/100 WBC (Bld) 7.8 % Normal 0-10 [facility] Comment on above: Performed By: #### L 500.2500, L100.0100 ####[facility] [address] [place], [address] Neutrophils/100 WBC (Bld) 60.5 % Normal 47-70 [facility] Comment on above: Performed By: #### L 500.2500, L100.0100 ####[facility] [address] [place], [address] Nucleated RBC (Bld) [#/Vol] 0 10*3/uL Normal 0-5 [facility] Comment on above: Performed By: #### L 500.2500, L100.0100 ####[facility] [address] [place], [address] Platelet mean volume (Bld) [Entitic vol] 10.3 fL Normal 6.2-12.0 [facility] Comment on above: Performed By: #### L 500.2500, L100.0100 ####[facility] [address] [place], [address] Platelets (Bld) [#/Vol] 188 10*3/uL Normal 150-450 [facility] Comment on above: Performed By: #### L 500.2500, L100.0100 ####[facility] [address] [place], [address] RBC (Bld) [#/Vol] 3.88 10*6/uL Low 4.2-5.4 [facility] Comment on above: Performed By: #### L 500.2500, L100.0100 ####[facility] [address] [place], [address] RDW SD 48.6 fl High 35.1-43.9 [facility] Comment on above: Performed By: #### L 500.2500, L100.0100 ####[facility] [address] [place], [address] WBC (Bld) [#/Vol] 6.4 10*3/uL Normal 4.4-11.0 [facility] Comment on above: Performed By: #### L 500.2500, L100.0100 ####[facility] [address] [place], [address] Basic Metabolic Profile (BMP )on 02-02-2025 BUN/CRE 29.0 RATIO High 10-20 [facility] Comment on above: Performed By: #### L 500.2500, L100.0500 ####[facility] [address] [place], [address] Calcium [Mass/Vol] 8.4 mg/dL Normal 7.6-11.0 [facility] Comment on above: Performed By: #### L 500.2500, L100.0500 ####[facility] [address] [place], [address] Chloride [Moles/Vol] 107 mmol/L Normal 98-108 [facility] Comment on above: Performed By: #### L 500.2500, L100.0500 ####[facility] [address] [place], [address] CO2 [Moles/Vol] 20.3 mmol/L Low 21.0-32.0 [facility] Comment on above: Performed By: #### L 500.2500, L100.0500 ####[facility] [address] [place], [address] Creatinine [Mass/Vol] 0.86 mg/dL Normal 0.70-1.20 [facility] Comment on above: Performed By: #### L 500.2500, L100.0500 ####[facility] [address] [place], [address] ECRCL 81.38 ml/min Normal 50-250 [facility] Comment on above: Performed By: #### L 500.2500, L100.0500 ####[facility] [address] [place], [address] GAP 9 Normal 5-15 [facility] Comment on above: Performed By: #### L 500.2500, L100.0500 ####[facility] [address] [place], [address] GFR/1.73 sq M.predicted among non-blacks MDRD (S/P/Bld) [Vol rate/Area] 81 mL/min/{1.73_m2} Normal >60 [facility] Comment on above: Result Comment: mL/m in/1.73m2 CKD-EPI Creatinine Equation (2020) Performed By: #### L 500.2500, L100.0500 ####[facility] [address] [place], [address] Glucose [Mass/Vol] 116 mg/dL High 70-99 [facility] Comment on above: Performed By: #### L 500.2500, L100.0500 ####[facility] [address] [place], [address] Potassium [Moles/Vol] 5.0 mmol/L Normal 3.3-5.1 [facility] Comment on above: Performed By: #### L 500.2500, L100.0500 ####[facility] [address] [place], [address] Sodium [Moles/Vol] 137 mmol/L Normal 133-145 [facility] Comment on above: Performed By: #### L 500.2500, L100.0500 ####[facility] [address] [place], [address] Urea nitrogen [Mass/Vol] 25 mg/dL High 4-19 [facility] Comment on above: Performed By: #### L 500.2500, L100.0500 ####[facility] [address] [place], [address] Bedside Glucoseon 02-02-2025 FINGERSTICK GLU 127 mg/dL High 74-106 [facility] Comment on above: Result Comment: TALIA GEMENT OF PATIENT CARE PER NURSING PROTOCOL Performed By: #### L 501.080 ####[facility] [address] [place], [address] FINGERSTICK GLU 190 mg/dL High 74-106 [facility] Comment on above: Result Comment: TALIA GEMENT OF PATIENT CARE PER NURSING PROTOCOL Performed By: #### L 501.080 ####[facility] [address] [place], [address] FINGERSTICK GLU 206 mg/dL High 74-106 [facility] Comment on above: Result Comment: TALIA GEMENT OF PATIENT CARE PER NURSING PROTOCOL Performed By: #### L 501.080 ####[facility] [address] [place], [address] FINGERSTICK GLU 121 mg/dL High 74-106 [facility] Comment on above: Result Comment: TALIA GEMENT OF PATIENT CARE PER NURSING PROTOCOL Performed By: #### L 501.080 ####[facility] [address] [place], [address] FINGERSTICK GLU 120 mg/dL High 74-106 [facility] Comment on above: Result Comment: TALIA GEMENT OF PATIENT CARE PER NURSING PROTOCOL Performed By: #### L 501.080 ####[facility] [address] [place], [address] CBC-Complete Blood Cnt No Di rachael 02-02-2025 Erythrocyte distribution width (RBC) [Ratio] 15.0 % High 11.6-14.6 [facility] Comment on above: Performed By: #### L 500.2500, L100.0500 ####[facility] [address] [place], [address] Hematocrit (Bld) [Volume fraction] 33.3 % Low 37-47 [facility] Comment on above: Performed By: #### L 500.2500, L100.0500 ####[facility] [address] [place], [address] Hemoglobin (Bld) [Mass/Vol] 10.6 g/dL Low 12.0-15.0 [facility] Comment on above: Performed By: #### L 500.2500, L100.0500 ####[facility] [address] [place], [address] MCH (RBC) [Entitic mass] 27.2 pg Normal 27.0-32.0 [facility] Comment on above: Performed By: #### L 500.2500, L100.0500 ####[facility] [address] [place], [address] MCHC (RBC) [Mass/Vol] 31.8 g/dL Low 32-36 [facility] Comment on above: Performed By: #### L 500.2500, L100.0500 ####[facility] [address] [place], [address] MCV (RBC) [Entitic vol] 85.4 fL Normal 81-99 [facility] Comment on above: Performed By: #### L 500.2500, L100.0500 ####[facility] [address] [place], [address] Platelet mean volume (Bld) [Entitic vol] 9.6 fL Normal 6.2-12.0 [facility] Comment on above: Performed By: #### L 500.2500, L100.0500 ####[facility] [address] [place], [address] Platelets (Bld) [#/Vol] 189 10*3/uL Normal 150-450 [facility] Comment on above: Performed By: #### L 500.2500, L100.0500 ####[facility] [address] [place], [address] RBC (Bld) [#/Vol] 3.90 10*6/uL Low 4.2-5.4 [facility] Comment on above: Performed By: #### L 500.2500, L100.0500 ####[facility] [address] [place], [address] RDW SD 46.7 fl High 35.1-43.9 [facility] Comment on above: Performed By: #### L 500.2500, L100.0500 ####[facility] [address] [place], [address] WBC (Bld) [#/Vol] 5.5 10*3/uL Normal 4.4-11.0 [facility] Comment on above: Performed By: #### L 500.2500, L100.0500 ####[facility] [address] [place], [address] Bedside Glucoseon 02-01-2025 FINGERSTICK GLU 158 mg/dL High 74-106 [facility] Comment on above: Result Comment: TALIA GEMENT OF PATIENT CARE PER NURSING PROTOCOL Performed By: #### L 501.080 ####[facility] [address] [place], [address] FINGERSTICK GLU 179 mg/dL High 74-106 [facility] Comment on above: Result Comment: TALIA GEMENT OF PATIENT CARE PER NURSING PROTOCOL Performed By: #### L 501.080 ####[facility] [address] [place], [address] FINGERSTICK GLU 203 mg/dL High 74-106 [facility] Comment on above: Result Comment: TALIA GEMENT OF PATIENT CARE PER NURSING PROTOCOL Performed By: #### L 501.080 ####[facility] [address] [place], [address] FINGERSTICK GLU 172 mg/dL High 74-106 [facility] Comment on above: Result Comment: TALIA GEMENT OF PATIENT CARE PER NURSING PROTOCOL Performed By: #### L 501.080 ####[facility] [address] [place], [address] Amphetamine detection with 1 000 ng/mL as cutoffOrdered By: Latricia Burdick on 01-31-2025 Amphetamines Screen method >1000 ng/mL Ql (U) Negative < 200 ng/mL [facility] Basic Metabolic Profile (BMP )on 01-31-2025 BUN/CRE 21.4 RATIO High 10-20 [facility] Comment on above: Performed By: #### L 501.2300, L501.5200, L500.2500 ####[facility] [address] [place], [address] Calcium [Mass/Vol] 8.8 mg/dL Normal 7.6-11.0 [facility] Comment on above: Performed By: #### L 501.2300, L501.5200, L500.2500 ####[facility] [address] [place], [address] Chloride [Moles/Vol] 103 mmol/L Normal 98-108 [facility] Comment on above: Performed By: #### L 501.2300, L501.5200, L500.2500 ####[facility] [address] [place], [address] CO2 [Moles/Vol] 23.9 mmol/L Normal 21.0-32.0 [facility] Comment on above: Performed By: #### L 501.2300, L501.5200, L500.2500 ####[facility] [address] [place], [address] Creatinine [Mass/Vol] 0.72 mg/dL Normal 0.70-1.20 [facility] Comment on above: Performed By: #### L 501.2300, L501.5200, L500.2500 ####[facility] [address] [place], [address] ECRCL 96.75 ml/min Normal 50-250 [facility] Comment on above: Performed By: #### L 501.2300, L501.5200, L500.2500 ####[facility] [address] [place], [address] GAP 7 Normal 5-15 [facility] Comment on above: Performed By: #### L 501.2300, L501.5200, L500.2500 ####[facility] [address] [place], [address] GFR/1.73 sq M.predicted among non-blacks MDRD (S/P/Bld) [Vol rate/Area] 101 mL/min/{1.73_m2} Normal >60 [facility] Comment on above: Result Comment: mL/m in/1.73m2 CKD-EPI Creatinine Equation (2020) Performed By: #### L 501.2300, L501.5200, L500.2500 ####[facility] [address] [place], [address] Glucose [Mass/Vol] 132 mg/dL High 70-99 [facility] Comment on above: Performed By: #### L 501.2300, L501.5200, L500.2500 ####[facility] [address] [place], [address] Potassium [Moles/Vol] 5.0 mmol/L Normal 3.3-5.1 [facility] Comment on above: Performed By: #### L 501.2300, L501.5200, L500.2500 ####[facility] [address] [place], [address] Sodium [Moles/Vol] 133 mmol/L Normal 133-145 [facility] Comment on above: Performed By: #### L 501.2300, L501.5200, L500.2500 ####[facility] [address] [place], [address] Urea nitrogen [Mass/Vol] 15 mg/dL Normal 4-19 [facility] Comment on above: Performed By: #### L 501.2300, L501.5200, L500.2500 ####[facility] [address] [place], [address] Bedside Glucoseon 01-31-2025 FINGERSTICK GLU 164 mg/dL High 74-106 [facility] Comment on above: Result Comment: TALIA GEMENT OF PATIENT CARE PER NURSING PROTOCOL Performed By: #### L 501.080 ####[facility] [address] [place], [address] FINGERSTICK GLU 165 mg/dL High 74-106 [facility] Comment on above: Result Comment: TALIA GEMENT OF PATIENT CARE PER NURSING PROTOCOL Performed By: #### L 501.080 ####[facility] [address] [place], [address] FINGERSTICK GLU 155 mg/dL High 74-106 [facility] Comment on above: Result Comment: TALIA GEMENT OF PATIENT CARE PER NURSING PROTOCOL Performed By: #### L 501.080 ####[facility] [address] [place], [address] FINGERSTICK GLU 155 mg/dL High 74-106 [facility] Comment on above: Result Comment: TALIA GEMENT OF PATIENT CARE PER NURSING PROTOCOL Performed By: #### L 501.080 ####[facility] [address] [place], [address] Bilirubin Test strip Ql (U)O rdered By: Latricia Burdick on 01-31-2025 Bilirubin Ql (U) Negative Negative [facility] CBC W/Diff, Automatedon 01-04 Absolute Lymph 2.36 X10 3/uL Normal 0.83-4.51 [facility] Comment on above: Performed By: #### L 100.0100 ####[facility] [address] [place], [address] Absolute Neut 4.7 X10 3/uL Normal 2.0-7.7 [facility] Comment on above: Performed By: #### L 100.0100 ####[facility] [address] [place], [address] Basophils/100 WBC (Bld) 0.6 % Normal 0-1 [facility] Comment on above: Performed By: #### L 100.0100 ####[facility] [address] [place], [address] Eosinophils/100 WBC (Bld) 1.2 % Normal 0-5 [facility] Comment on above: Performed By: #### L 100.0100 ####[facility] [address] [place], [address] Erythrocyte distribution width (RBC) [Ratio] 14.5 % Normal 11.6-14.6 [facility] Comment on above: Performed By: #### L 100.0100 ####[facility] [address] [place], [address] Hematocrit (Bld) [Volume fraction] 39.6 % Normal 37-47 [facility] Comment on above: Performed By: #### L 100.0100 ####[facility] [address] [place], [address] Hemoglobin (Bld) [Mass/Vol] 12.6 g/dL Normal 12.0-15.0 [facility] Comment on above: Performed By: #### L 100.0100 ####[facility] [address] [place], [address] IG% 0.400 Normal 0.0-0.9 [facility] Comment on above: Result Comment: IG% - Immature Granulocytes (promyelocytes, myelocytes andmetamyelocytes) > 1% indicates that a LEFT SHIFT is Present. Performed By: #### L 100.0100 ####[facility] [address] [place], [address] Lymphocytes/100 WBC (Bld) 30.6 % Normal 19-41 [facility] Comment on above: Performed By: #### L 100.0100 ####[facility] [address] [place], [address] MCH (RBC) [Entitic mass] 27.0 pg Normal 27.0-32.0 [facility] Comment on above: Performed By: #### L 100.0100 ####[facility] [address] [place], [address] MCHC (RBC) [Mass/Vol] 31.8 g/dL Low 32-36 [facility] Comment on above: Performed By: #### L 100.0100 ####[facility] [address] [place], [address] MCV (RBC) [Entitic vol] 84.8 fL Normal 81-99 [facility] Comment on above: Performed By: #### L 100.0100 ####[facility] [address] [place], [address] Monocytes/100 WBC (Bld) 7.0 % Normal 0-10 [facility] Comment on above: Performed By: #### L 100.0100 ####[facility] [address] [place], [address] Neutrophils/100 WBC (Bld) 60.2 % Normal 47-70 [facility] Comment on above: Performed By: #### L 100.0100 ####[facility] [address] [place], [address] Nucleated RBC (Bld) [#/Vol] 0 10*3/uL Normal 0-5 [facility] Comment on above: Performed By: #### L 100.0100 ####[facility] [address] [place], [address] Platelet mean volume (Bld) [Entitic vol] 9.5 fL Normal 6.2-12.0 [facility] Comment on above: Performed By: #### L 100.0100 ####[facility] [address] [place], [address] Platelets (Bld) [#/Vol] 228 10*3/uL Normal 150-450 [facility] Comment on above: Performed By: #### L 100.0100 ####[facility] [address] [place], [address] RBC (Bld) [#/Vol] 4.67 10*6/uL Normal 4.2-5.4 [facility] Comment on above: Performed By: #### L 100.0100 ####[facility] [address] [place], [address] RDW SD 44.3 fl High 35.1-43.9 [facility] Comment on above: Performed By: #### L 100.0100 ####[facility] [address] [place], [address] WBC (Bld) [#/Vol] 7.7 10*3/uL Normal 4.4-11.0 [facility] Comment on above: Performed By: #### L 100.0100 ####[facility] [address] [place], [address] Ketones Test strip Ql (U)Ord ered By: Latricia Burdick on 01-31-2025 Ketones Ql (U) Negative Negative [facility] Magnesiumon 01-31-2025 Magnesium [Mass/Vol] 2.0 mg/dL Normal 1.5-2.2 [facility] Comment on above: Performed By: #### L 501.2300, L501.5200, L500.2500 ####[facility] [address] [place], [address] Magnesium measurement (mass/ volume)Ordered By: Nicole Trujillo on 01-31-2025 Magnesium (Unsp spec) [Mass/Vol] 2.0 mg/dL 1.5-2.2 [facility] Mucus LM Ql (Urine sed)Order ed By: Latricia Burdick on 01-31-2025 Mucus Ql (Urine sed) 0 SEEN /hpf [facility] Nitrite Test strip Ql (U)Ord ered By: Latricia Burdick on 01-31-2025 Nitrite Ql (U) Negative Negative [facility] No Panel InformationOrdered By: Latricia Burdick on 01-31-2025 Positive < 100 ng/mL [facility] Negative < 200 ng/mL [facility] Phosphoruson 01-31-2025 Phosphate [Mass/Vol] 4.0 mg/dL Normal 2.7-4.5 [facility] Comment on above: Performed By: #### L 501.2300, L501.5200, L500.2500 ####[facility] [facility] [address], [address] Protein Test strip Ql (U)Ord ered By: Latricia Burdick on 01-31-2025 Protein Ql (U) 30 mg/dl High Negative [facility] Screening urine fentanyl trudi surementOrdered By: Latricia Burdick on 01-31-2025 fentaNYL Screen Ql (U) Negative <5 ng/mL [facility] Squamous epithelial cells de tection in urine sediment by light microscopyOrdered By: Latricia Burdick on 01-31-2025 Epithelial cells.squamous LM Ql (Urine sed) 5-10 SEEN /hpf 5-10 [facility] Transitional cells detection in urine sediment by light microscopyOrdered By: Latricia Burdick on 01-31-2025 Transitional cells LM Ql (Urine sed) 0-5 SEEN /hpf 0-5 [facility] Urinalysis, Completeon 01-31 BACTERIA 1+ /hpf Normal None Seen [facility] Comment on above: Order Comment: CLEAN CATCH Performed By: #### L 400.0001 ####[facility] [address] [place], [address] EPI,SQUAMOUS 5-10 SEEN Normal 5-10 [facility] Comment on above: Order Comment: CLEAN CATCH Performed By: #### L 400.0001 ####[facility] [address] [place], [address] EPI,TRANSITION 0-5 SEEN Normal 0-5 [facility] Comment on above: Order Comment: CLEAN CATCH Performed By: #### L 400.0001 ####[facility] [address] [place], [address] WBC 0-5 SEEN Normal 0-5 [facility] Comment on above: Order Comment: CLEAN CATCH Performed By: #### L 400.0001 ####[facility] [address] [place], [address] YEAST 1+ /hpf Normal None Seen [facility] Comment on above: Order Comment: CLEAN CATCH Performed By: #### L 400.0001 ####[facility] [address] [place], [address] Mucus Ql (Urine sed) 0 SEEN Normal [facility] Comment on above: Order Comment: CLEAN CATCH Performed By: #### L 400.0001 ####[facility] [address] [place], [address] RBC 0 SEEN Normal 0-5 [facility] Comment on above: Order Comment: CLEAN CATCH Performed By: #### L 400.0001 ####[facility] [address] [place], [address] Urine Drug Screen (VISTA)on 01-31-2025 AMPHETAMINES Negative Normal <1000 ng/mL [facility] Comment on above: Performed By: #### L 505.5000, L501.9100, L503.0106 ####[facility] [address] [facility] [address] BARBITIURATES Negative Normal < 200 ng/mL [facility] Comment on above: Performed By: #### L 505.5000, L501.9100, L503.0106 ####[facility] [address] [facility] [address] BENZODIAZIPINE Negative Normal < 200 ng/mL [facility] Comment on above: Performed By: #### L 505.5000, L501.9100, L503.0106 ####[facility] [address] [place], [address] BUP Ur Drug Scr Negative Normal < 200 ng/mL [facility] Comment on above: Performed By: #### L 505.5000, L501.9100, L503.0106 ####[facility] [address] [place], [address] COCAINE Negative Normal < 300 ng/mL [facility] Comment on above: Performed By: #### L 505.5000, L501.9100, L503.0106 ####[facility] [address] [facility] [address] Fentanyl Negative Normal <5 ng/mL [facility] Comment on above: Result Comment: CONF [...] Performed By: #### L 505.5000, L501.9100, L503.0106 ####[facility] [address] [facility] [address] METHADONE Negative Normal < 300 ng/mL [facility] Comment on above: Performed By: #### L 505.5000, L501.9100, L503.0106 ####[facility] [address] [place] [phone] OPIATES Positive Normal < 300 ng/mL [facility] Comment on above: Result Comment: If c onfirmation testing is needed, a separate order will berequired to send out testing to the reference laboratory. Performed By: #### L 505.5000, L501.9100, L503.0106 ####[facility] [address] [place] [phone] OXYCODONE Positive Normal < 100 ng/mL [facility] Comment on above: Result Comment: If c onfirmation testing is needed, a separate order will berequired to send out testing to the reference laboratory. Performed By: #### L 505.5000, L501.9100, L503.0106 ####[facility] [address] [facility] [address] PCP Negative Normal < 25 ng/mL [facility] Comment on above: Performed By: #### L 505.5000, L501.9100, L503.0106 ####[facility] [address] [place] [phone] THC Positive Normal < 50 ng/mL [facility] Comment on above: Result Comment: If c onfirmation testing is needed, a separate order will berequired to send out testing to the reference laboratory. Performed By: #### L 505.5000, L501.9100, L503.0106 ####[facility] [address] [place], [address] Urine clarityOrdered By: Cuco Burdick on 01-31-2025 Clarity (U) Clear Clear [facility] Urine color determinationOrd ered By: Latricia Burdick on 01-31-2025 Color (U) Yellow Yellow [facility] Urine glucose detectionOrder ed By: Latricia Burdick on 01-31-2025 Glucose Ql (U) Normal mg/dl Normal [facility] Urine leukocyte esterase det ection by dipstickOrdered By: Latricia Burdick on 01-31-2025 Leukocyte esterase Test strip Ql (U) 25 /ul High Negative [facility] Urine pHOrdered By: Latricia mack on 01-31-2025 pH (U) 6.5 [pH] 5.0 - 8.0 [facility] Urine phencyclidine (PCP) de tectionOrdered By: Latricia Burdick on 01-31-2025 Phencyclidine Ql (U) Negative < 25 ng/mL [facility] Urine sediment bacteria coun t by microscopy (number/high power field)Ordered By: Latricia Burdick on 01-31-2025 Bacteria LM.HPF (Urine sed) [#/Area] 1 /[HPF] None Seen [facility] Urine sediment yeast count b y microscopy (number/high powered field)Ordered By: Latricia Burdick on 01-31-2025 Yeast LM.HPF (Urine sed) [#/Area] 1 /[HPF] None Seen [facility] Urine specific gravity measu rementOrdered By: Latricia Burdick on 01-31-2025 Specific gravity (U) [Rel density] 1.010 1.002-1.03 0 [facility] Urine urobilinogen measureme ntOrdered By: Latricia Burdick on 01-31-2025 Urobilinogen Ql (U) Normal mg/dl Normal [facility] White blood cell countOrdere d By: Latricia Burdick on 01-31-2025 White blood cell count 0-5 SEEN /hpf 0-5 [facility] Alcohol, Blood (Medical)-Ser umon 01-30-2025 SERUM ETOH < 10.1 Normal <=10.0 [facility] Comment on above: Result Comment: This test is for medical purposes only. The legaldefinition of intoxication varies according to local law. Performed By: #### L 505.5000, L501.9100, L503.0106 ####[facility] [address] [place], [address] Bedside Glucoseon 01-30-2025 FINGERSTICK GLU 233 mg/dL High [address] [place] [address] Comment on above: Result Comment: TALIA GEMENT OF PATIENT CARE PER NURSING PROTOCOL Performed By: #### L 501.080 ####[facility] [address] [place], [address] FINGERSTICK GLU 136 mg/dL High [address] [place] [address] Comment on above: Result Comment: TALIA GEMENT OF PATIENT CARE PER NURSING PROTOCOL Performed By: #### L 501.080 ####[facility] [address] [place], [address] FINGERSTICK GLU 259 mg/dL High [address] [place] [address] Comment on above: Result Comment: TALIA GEMENT OF PATIENT CARE PER NURSING PROTOCOL Performed By: #### L 501.080 ####[facility] [address] [place], [address] FINGERSTICK GLU 395 mg/dL High [address] [place] [address] Comment on above: Result Comment: TALIA GEMENT OF PATIENT CARE PER NURSING PROTOCOL Performed By: #### L 501.080 ####[facility] [address] [place], [address] Bilirubin, totalOrdered By: Latricia Burdick on 01-30-2025 Bilirubin [Mass/Vol] 0.54 mg/dL 0.00-1.30 [facility] CBC W/Diff, Automatedon 01-03 Absolute Lymph 2.10 X10 3/uL Normal 0.83-4.51 [facility] Comment on above: Performed By: #### L 100.0100, L500.4050, L501.2300, L500.4100 ####[facility] [address] [place], [address] Absolute Neut 4.0 X10 3/uL Normal 2.0-7.7 [facility] Comment on above: Performed By: #### L 100.0100, L500.4050, L501.2300, L500.4100 ####[facility] [address] [place], [address] Basophils/100 WBC (Bld) 0.7 % Normal 0-1 [facility] Comment on above: Performed By: #### L 100.0100, L500.4050, L501.2300, L500.4100 ####[facility] [address] [place], [address] Eosinophils/100 WBC (Bld) 1.3 % Normal 0-5 [facility] Comment on above: Performed By: #### L 100.0100, L500.4050, L501.2300, L500.4100 ####[facility] [address] [place], [address] Erythrocyte distribution width (RBC) [Ratio] 14.6 % Normal 11.6-14.6 [facility] Comment on above: Performed By: #### L 100.0100, L500.4050, L501.2300, L500.4100 ####[facility] [address] [place], [address] Hematocrit (Bld) [Volume fraction] 39.6 % Normal 37-47 [facility] Comment on above: Performed By: #### L 100.0100, L500.4050, L501.2300, L500.4100 ####[facility] [address] [place], [address] Hemoglobin (Bld) [Mass/Vol] 12.7 g/dL Normal 12.0-15.0 [facility] Comment on above: Performed By: #### L 100.0100, L500.4050, L501.2300, L500.4100 ####[facility] [address] [place], [address] IG% 0.300 Normal 0.0-0.9 [facility] Comment on above: Result Comment: IG% - Immature Granulocytes (promyelocytes, myelocytes andmetamyelocytes) > 1% indicates that a LEFT SHIFT is Present. Performed By: #### L 100.0100, L500.4050, L501.2300, L500.4100 ####[facility] [address] [place], [address] Lymphocytes/100 WBC (Bld) 31.3 % Normal 19-41 [facility] Comment on above: Performed By: #### L 100.0100, L500.4050, L501.2300, L500.4100 ####[facility] [address] [place], [address] MCH (RBC) [Entitic mass] 27.2 pg Normal 27.0-32.0 [facility] Comment on above: Performed By: #### L 100.0100, L500.4050, L501.2300, L500.4100 ####[facility] [address] [place], [address] MCHC (RBC) [Mass/Vol] 32.1 g/dL Normal 32-36 [facility] Comment on above: Performed By: #### L 100.0100, L500.4050, L501.2300, L500.4100 ####[facility] [address] [place], [address] MCV (RBC) [Entitic vol] 84.8 fL Normal 81-99 [facility] Comment on above: Performed By: #### L 100.0100, L500.4050, L501.2300, L500.4100 ####[facility] [address] [place], [address] Monocytes/100 WBC (Bld) 6.7 % Normal 0-10 [facility] Comment on above: Performed By: #### L 100.0100, L500.4050, L501.2300, L500.4100 ####[facility] [address] [place], [address] Neutrophils/100 WBC (Bld) 59.7 % Normal 47-70 [facility] Comment on above: Performed By: #### L 100.0100, L500.4050, L501.2300, L500.4100 ####[facility] [address] [place], [address] Nucleated RBC (Bld) [#/Vol] 0 10*3/uL Normal 0-5 [facility] Comment on above: Performed By: #### L 100.0100, L500.4050, L501.2300, L500.4100 ####[facility] [address] [place], [address] Platelet mean volume (Bld) [Entitic vol] 10.2 fL Normal 6.2-12.0 [facility] Comment on above: Performed By: #### L 100.0100, L500.4050, L501.2300, L500.4100 ####[facility] [address] [place], [address] Platelets (Bld) [#/Vol] 209 10*3/uL Normal 150-450 [facility] Comment on above: Performed By: #### L 100.0100, L500.4050, L501.2300, L500.4100 ####[facility] [address] [place], [address] RBC (Bld) [#/Vol] 4.67 10*6/uL Normal 4.2-5.4 [facility] Comment on above: Performed By: #### L 100.0100, L500.4050, L501.2300, L500.4100 ####[facility] [address] [place], [address] RDW SD 44.7 fl High 35.1-43.9 [facility] Comment on above: Performed By: #### L 100.0100, L500.4050, L501.2300, L500.4100 ####[facility] [address] [place], [address] WBC (Bld) [#/Vol] 6.7 10*3/uL Normal 4.4-11.0 [facility] Comment on above: Performed By: #### L 100.0100, L500.4050, L501.2300, L500.4100 ####[facility] [address] [place], [address] Calculated very low density lipoprotein (VLDL) cholesterol measurementOrdered By: Latricia Burdick on 01-30-2025 Calculated very low density lipoprotein (VLDL) cholesterol measurement 57 mg/dL High 5-40 [facility] Comprehensive Metabolic Prof ilon 01-30-2025 Albumin [Mass/Vol] 3.0 g/dL Low 3.5-5.0 [facility] Comment on above: Performed By: #### L 100.0100, L500.4050, L501.2300, L500.4100 ####[facility] [address] [place], [address] Albumin/Globulin [Mass ratio] 1.2 {ratio} Normal 0.9-2.4 [facility] Comment on above: Performed By: #### L 100.0100, L500.4050, L501.2300, L500.4100 ####[facility] [address] [place], [address] ALK PHOS 110 U/L High 35-104 [facility] Comment on above: Performed By: #### L 100.0100, L500.4050, L501.2300, L500.4100 ####[facility] [address] [place], [address] ALT [Catalytic activity/Vol] 11 U/L Normal <=34 [facility] Comment on above: Performed By: #### L 100.0100, L500.4050, L501.2300, L500.4100 ####[facility] [address] [place], [address] AST [Catalytic activity/Vol] 17 U/L Normal <=31 [facility] Comment on above: Performed By: #### L 100.0100, L500.4050, L501.2300, L500.4100 ####[facility] [address] [place], [address] Bilirubin [Mass/Vol] 0.54 mg/dL Normal 0.00-1.30 [facility] Comment on above: Performed By: #### L 100.0100, L500.4050, L501.2300, L500.4100 ####[facility] [address] [place], [address] BUN/CRE 12.6 RATIO Normal 10-20 [facility] Comment on above: Performed By: #### L 100.0100, L500.4050, L501.2300, L500.4100 ####[facility] [address] [place], [address] Calcium [Mass/Vol] 8.4 mg/dL Normal 7.6-11.0 [facility] Comment on above: Performed By: #### L 100.0100, L500.4050, L501.2300, L500.4100 ####[facility] [address] [place], [address] Chloride [Moles/Vol] 99 mmol/L Normal 98-108 [facility] Comment on above: Performed By: #### L 100.0100, L500.4050, L501.2300, L500.4100 ####[facility] [address] [place], [address] CO2 [Moles/Vol] 22.7 mmol/L Normal 21.0-32.0 [facility] Comment on above: Performed By: #### L 100.0100, L500.4050, L501.2300, L500.4100 ####[facility] [address] [place], [address] Creatinine [Mass/Vol] 0.65 mg/dL Low 0.70-1.20 [facility] Comment on above: Performed By: #### L 100.0100, L500.4050, L501.2300, L500.4100 ####[facility] [address] [place], [address] ECRCL 107.23 ml/min Normal 50-250 [facility] Comment on above: Performed By: #### L 100.0100, L500.4050, L501.2300, L500.4100 ####[facility] [address] [place], [address] GAP 10 Normal 5-15 [facility] Comment on above: Performed By: #### L 100.0100, L500.4050, L501.2300, L500.4100 ####[facility] [address] [place], [address] GFR/1.73 sq M.predicted among non-blacks MDRD (S/P/Bld) [Vol rate/Area] 105 mL/min/{1.73_m2} Normal >60 [facility] Comment on above: Result Comment: mL/m in/1.73m2 CKD-EPI Creatinine Equation (2020) Performed By: #### L 100.0100, L500.4050, L501.2300, L500.4100 ####[facility] [address] [place], [address] Globulin (S) [Mass/Vol] 2.6 g/dL Normal 2.2-4.2 [place] Comment on above: Performed By: #### L 100.0100, L500.4050, L501.2300, L500.4100 ####[facility] [address] [place], [address] Glucose [Mass/Vol] 385 mg/dL High 70-99 [facility] Comment on above: Performed By: #### L 100.0100, L500.4050, L501.2300, L500.4100 ####[facility] [address] [place], [address] Potassium [Moles/Vol] 3.9 mmol/L Normal 3.3-5.1 [facility] Comment on above: Performed By: #### L 100.0100, L500.4050, L501.2300, L500.4100 ####[facility] [address] [place], [address] Sodium [Moles/Vol] 132 mmol/L Low 133-145 [facility] Comment on above: Performed By: #### L 100.0100, L500.4050, L501.2300, L500.4100 ####[facility] [address] [place], [address] T PROT 5.5 g/dL Low 5.9-8.4 [facility] Comment on above: Performed By: #### L 100.0100, L500.4050, L501.2300, L500.4100 ####[facility] [address] [place], [address] Urea nitrogen [Mass/Vol] 8 mg/dL Normal 4-19 [facility] Comment on above: Performed By: #### L 100.0100, L500.4050, L501.2300, L500.4100 ####[facility] [address] [place], [address] Folates,Serum (Folic Acid)on 01-30-2025 FOLATES,SERUM 11.90 ng/mL Normal 4.60-34.80 [facility] Comment on above: Result Comment: Hemo lysis, Results will be affected, Requires Recollection. Performed By: #### L 506.0200 ####[facility] [address], [address] LDL calc ser/plasOrdered By: Latricia Burdick on 01-30-2025 Cholesterol in LDL [Mass/Vol] 82 mg/dL [facility] Lipid Profileon 01-30-2025 CHOL:HDL 4.53 Normal [facility] Comment on above: Performed By: #### L 100.0100, L500.4050, L501.2300, L500.4100 ####[facility] [address], [address] Cholesterol [Mass/Vol] 178 mg/dL Normal <=200 [facility] Comment on above: Result Comment: Chol esterol level, Desirable <200 mg/dLBorderline high cholesterol 200-239 mg/dLHigh cholesterol >=240 mg/dLRecommendations of the NCEP Adult Treatment Panel for thefollowing risk-cutoff thresholds for the [place] Americanpulation. Performed By: #### L 100.0100, L500.4050, L501.2300, L500.4100 ####[facility] [address] [place], [address] Cholesterol in HDL [Mass/Vol] 39 mg/dL Low [facility] Comment on above: Result Comment: Aleyda onal Cholesterol Education Program (NCEP) guidelines:<40 mg/dL: Low HDL-cholesterol (major risk factor for CHD)>= 60 mg/dL: High HDL-cholesterol (negative risk factor forCHD)HDL-cholesterol is affected by a number of factors, e.g.smoking, exercise, hormones, sex and age. Performed By: #### L 100.0100, L500.4050, L501.2300, L500.4100 ####[facility] [address] [place], [address] Cholesterol in LDL [Mass/Vol] 82 mg/dL Normal [facility] Comment on above: Result Comment: Bord satnny=731-431 mg/dL Higher Uffr=860 mg/dL or greaterFriedwald Equation for LDL-C Performed By: #### L 100.0100, L500.4050, L501.2300, L500.4100 ####[facility] [address] [place], [address] Cholesterol in VLDL [Mass/Vol] 57 mg/dL High 5-40 [facility] Comment on above: Performed By: #### L 100.0100, L500.4050, L501.2300, L500.4100 ####[facility] [address] [place], [address] Triglyceride [Mass/Vol] 284 mg/dL High [facility] Comment on above: Result Comment: The drugs N-Acetylcysteine and Metamizole may falselydepress this assay.Normal range: <150 mg/dLBorderline High: 150-199 mg/dLHigh: 200-499 mg/dLVery High: >500 mg/dL Performed By: #### L 100.0100, L500.4050, L501.2300, L500.4100 ####[facility] [address] [place], [address] No Panel InformationOrdered By: Latricia Burdick on 01-30-2025 17 U/L <32 [facility] Phosphoruson 01-30-2025 Phosphate [Mass/Vol] 3.2 mg/dL Normal 2.7-4.5 [facility] Comment on above: Performed By: #### L 100.0100, L500.4050, L501.2300, L500.4100 ####[facility] [address] [place], [address] Serum globulin measurementOr dered By: Latricia Burdick on 01-30-2025 Globulin (S) [Mass/Vol] 2.6 g/dL 2.2-4.2 [place] Serum or plasma alanine hamilton otransferase (ALT) measurementOrdered By: Latricia Burdick on 01-30-2025 ALT [Catalytic activity/Vol] 11 U/L <35 [facility] Serum or plasma albumin xiomara urement (mass/volume)Ordered By: Latricia Burdick on 01-30-2025 Albumin [Mass/Vol] 3.0 g/dL Low 3.5-5.0 [facility] Serum or plasma albumin/glob ulin mass ratioOrdered By: Latricia Burdick on 01-30-2025 Albumin/Globulin [Mass ratio] 1.2 {ratio} 0.9-2.4 [facility] Serum or plasma alkaline sabiha sphatase measurementOrdered By: Latricia Burdick on 01-30-2025 ALP [Catalytic activity/Vol] 110 U/L High 35-104 [facility] Serum or plasma cholesterol in HDL measurement (mass/volume)Ordered By: Latricia Burdick on 01-30-2025 Cholesterol in HDL [Mass/Vol] 39 mg/dL Low >40 [facility] Serum or plasma cholesterol measurement (mass/volume)Ordered By: Latricia Burdick on 01-30-2025 Cholesterol [Mass/Vol] 178 mg/dL <201 [facility] Total proteinOrdered By: Cuco Burdick on 01-30-2025 Protein [Mass/Vol] 5.5 g/dL Low 5.9-8.4 [facility] Vitamin B12on 01-30-2025 Cobalamin (Vitamin B12) [Mass/Vol] 344 pg/mL Normal 180-914 [facility] Comment on above: Performed By: #### L 505.5000, L501.9100, L503.0106 ####[facility] [address] [place], [address] Absolute lymphocyte countOrd ered By: Martina Martínez on 01-29-2025 Lymphocytes Auto (Unsp spec) [#/Vol] 1.44 10*3/uL 0.83-4.51 [facility] Absolute neutrophil countOrd ered By: Martina Martínez on 01-29-2025 Neutrophils (Bld) [#/Vol] 5.9 10*3/uL 2.0-7.7 [facility] Anion gap in Serum or Plasma Ordered By: Martina Martínez on 01-29-2025 Anion gap [Moles/Vol] 10 mmol/L 5-15 [facility] Automated blood erythrocyte countOrdered By: Martina Martínez on 01-29-2025 RBC (Bld) [#/Vol] 5.24 10*6/uL Normal 4.2-5.4 [facility] Comment on above: Performed By: #### L 501.6710, L500.2500, L100.0100 ####[facility] [address] [place], [address] Automated blood hematocrit ( percentage)Ordered By: Martina Martínez on 01-29-2025 Hematocrit (Bld) [Volume fraction] 43.4 % Normal 37-47 [facility] Comment on above: Performed By: #### L 501.6710, L500.2500, L100.0100 ####[facility] [address] [place], [address] Automated lymphocyte count a s percentage of total leukocytesOrdered By: Martina Martínez on 01-29-2025 Lymphocytes/100 WBC Auto (Unsp spec) 18.4 % Low 19-41 [facility] BUN/creatinine ratioOrdered By: Martina Martínez on 01-29-2025 Urea nitrogen/Creatinine [Mass ratio] 9.0 mg/mg Low 10-20 [facility] Basic Metabolic Profile (BMP )on 01-29-2025 BUN/CRE 9.0 RATIO Low 10- [facility] Comment on above: Performed By: #### L 501.6710, L500.2500, L100.0100 ####[facility] [address] [place], [address] ECRCL 104.07 ml/min Normal 50-250 [facility] Comment on above: Performed By: #### L 501.6710, L500.2500, L100.0100 ####[facility] [address] [place], [address] GAP 10 Normal 5-15 [facility] Comment on above: Performed By: #### L 501.6710, L500.2500, L100.0100 ####[facility] [address] [place], [address] Potassium [Moles/Vol] 4.1 mmol/L Normal 3.3-5.1 [facility] Comment on above: Performed By: #### L 501.6710, L500.2500, L100.0100 ####[facility] [address] [place], [address] Basophil percentageOrdered B y: Martina Martínez on 01-29-2025 Basophils/100 WBC (Bld) 0.8 % Normal 0-1 [facility] Comment on above: Performed By: #### L 501.6710, L500.2500, L100.0100 ####[facility] [address] [place], [address] Bedside Glucoseon 01-29-2025 FINGERSTICK GLU 241 mg/dL High 74-106 [facility] Comment on above: Result Comment: TALIA CHAMBERS OF PATIENT CARE PER NURSING PROTOCOL Performed By: #### L 501.080 ####[facility] [address] [place], [address] CBC W/Diff, Automatedon 08- Absolute Lymph 1.44 X10 3/uL Normal 0.83-4.51 [facility] Comment on above: Performed By: #### L 501.6710, L500.2500, L100.0100 ####[facility] [address] [place], [address] Absolute Neut 5.9 X10 3/uL Normal 2.0-7.7 [facility] Comment on above: Performed By: #### L 501.6710, L500.2500, L100.0100 ####[facility] [address] [place], [address] IG% 0.500 Normal 0.0-0.9 [facility] Comment on above: Result Comment: IG% - Immature Granulocytes (promyelocytes, myelocytes andmetamyelocytes) > 1% indicates that a LEFT SHIFT is Present. Performed By: #### L 501.6710, L500.2500, L100.0100 ####[facility] [address] [place], [address] Lymphocytes/100 WBC (Bld) 18.4 % Low 19-41 [facility] Comment on above: Performed By: #### L 501.6710, L500.2500, L100.0100 ####[facility] [address] [place], [address] Nucleated RBC (Bld) [#/Vol] 0 10*3/uL Normal 0-5 [facility] Comment on above: Performed By: #### L 501.6710, L500.2500, L100.0100 ####[facility] [address] [place], [address] RDW SD 42.9 fl Normal 35.1-43.9 [facility] Comment on above: Performed By: #### L 501.6710, L500.2500, L100.0100 ####[facility] [address] [place], [address] CRPon 01-29-2025 C-REACTIVE PROT < 3.00 Normal 0.0-3.0 [facility] Comment on above: Performed By: #### L 501.6710, L500.2500, L100.0100 ####[facility] [address] [place], [address] Carbon dioxide, total [Moles /volume] in Central venous bloodOrdered By: Martina Martínez on 01-29-2025 CO2 [Moles/Vol] 23.8 mmol/L Normal 21.0-32.0 [facility] Comment on above: Performed By: #### L 501.6710, L500.2500, L100.0100 ####[facility] [address] [place], [address] Chloride assayOrdered By: Rickey Matrínez on 01-29-2025 Chloride [Moles/Vol] 99 mmol/L Normal 98-108 [facility] Comment on above: Performed By: #### L 501.6710, L500.2500, L100.0100 ####[facility] [address] [place], [address] Emergency Department Summary on 01-29-2025 Emergency Department Summary Normal [facility] Eosinophil percentageOrdered By: Martina Martínez on 01-29-2025 Eosinophils/100 WBC (Bld) 0.4 % Normal 0-5 [facility] Comment on above: Performed By: #### L 501.6710, L500.2500, L100.0100 ####[facility] [address] [place], [address] Erythrocyte distribution wid th ratioOrdered By: Martina Martínez on 01-29-2025 Erythrocyte distribution width (RBC) [Ratio] 14.4 % Normal 11.6-14.6 [facility] Comment on above: Performed By: #### L 501.6710, L500.2500, L100.0100 ####[facility] [address] [place], [address] Erythrocyte distribution wid th standard deviationOrdered By: Martina Martínez on 01-29-2025 Erythrocyte distribution width (RBC) [Ratio] 42.9 fl 35.1-43.9 [facility] Folate [Moles/volume] in Ser um or PlasmaOrdered By: Latricia Burdick on 01-29-2025 Folate [Moles/Vol] 11.90 ng/mL 4.60-34.80 [facility] Glomerular filtration rate ( GFR) estimation/1.73 sq m using serum, plasma, or whole bOrdered By: Martina Martínez on 01-29-2025 GFR/1.73 sq M.predicted among non-blacks MDRD (S/P/Bld) [Vol rate/Area] 105 mL/min/{1.73_m2} Normal >60 [facility] Comment on above: mL/min/1.73m2 CKD-EP I Creatinine Equation (2020) Result Comment: mL/m in/1.73m2 CKD-EPI Creatinine Equation (2020) Performed By: #### L 501.6710, L500.2500, L100.0100 ####[facility] [address] [place], [place], [address] H AND P Exam - Hospitaliston 01-29-2025 H&P Exam - Hospitalist Normal [facility] HIP, UNI W/ Pelvis 2-3 Views on 01-29-2025 HIP, UNI W/ Pelvis 2-3 Views Normal [facility] Hemoglobin A1c percentageOrd ered By: Latricia Burdick on 01-29-2025 HbA1c (Bld) [Mass fraction] 13.2 % High <=5.6 [facility] Comment on above: Normal < 5.7 % Predi abetic 5.7 - 6.4 % Diabetic >or= 6.5 % Please note range changes. Result Comment: Norm al < 5.7 % Prediabetic 5.7 - 6.4 % Diabetic >or= 6.5 % Please note range changes. Performed By: #### L 501.9520, L501.5200, L501.9927 ####[facility] [address] [place], [place], [address] Hemoglobin measurementOrdere d By: Martina Martínez on 01-29-2025 Hemoglobin (Bld) [Mass/Vol] 14.3 g/dL Normal 12.0-15.0 [facility] Comment on above: Performed By: #### L 501.6710, L500.2500, L100.0100 ####[facility] [address] [place], [address] Immature granulocytes/100 WB C Auto (Bld)Ordered By: Martina Martínez on 01-29-2025 Immature granulocytes/100 WBC (Bld) 0.500 % 0.0-0.9 [facility] Comment on above: IG% - Immature Granu locytes (promyelocytes, myelocytes and metamyelocytes) > 1% indicates that a LEFT SHIFT is Present. MCV (mean corpuscular volume ) determinationOrdered By: Martina Martínez on 01-29-2025 MCV (RBC) [Entitic vol] 82.8 fL Normal 81-99 [place] Comment on above: Performed By: #### L 501.6710, L500.2500, L100.0100 ####[facility] [address] [place], [address] Magnesiumon 01-29-2025 Magnesium [Mass/Vol] 2.0 mg/dL Normal 1.5-2.2 [facility] Comment on above: Performed By: #### L 501.9520, L501.5200, L501.9985 ####[facility] [address] [place], [address] Mean corpuscular hemoglobin (MCH) determinationOrdered By: Martina Martínez on 01-29-2025 MCH (RBC) [Entitic mass] 27.3 pg Normal 27.0-32.0 [facility] Comment on above: Performed By: #### L 501.6710, L500.2500, L100.0100 ####[facility] [address] [place], [address] Mean corpuscular hemoglobin concentration (MCHC) determinationOrdered By: Martina Martínez on 01-29-2025 MCHC (RBC) [Mass/Vol] 32.9 g/dL Normal 32-36 [facility] Comment on above: Performed By: #### L 501.6710, L500.2500, L100.0100 ####[facility] [address] [place], [address] Mean platelet volume determi nationOrdered By: Martina Martínez on 01-29-2025 Platelet mean volume (Bld) [Entitic vol] 10.1 fL Normal 6.2-12.0 [facility] Comment on above: Performed By: #### L 501.6710, L500.2500, L100.0100 ####[facility] [address] [place], [address] Monocyte percentageOrdered B y: Martina Martínez on 01-29-2025 Monocytes/100 WBC (Bld) 5.4 % Normal 0-10 [place] Comment on above: Performed By: #### L 501.6710, L500.2500, L100.0100 ####[facility] [address] [place], [address] Neutrophil percentageOrdered By: Martina Martínez on 01-29-2025 Neutrophils/100 WBC (Bld) 74.5 % High 47-70 [facility] Comment on above: Performed By: #### L 501.6710, L500.2500, L100.0100 ####[facility] [address] [place], [address] Nucleated red blood cell per centageOrdered By: Martina Martínez on 01-29-2025 Nucleated RBC/100 WBC (Bld) [Ratio] 0 % 0-5 [facility] Platelet countOrdered By: Rickey Martínez on 01-29-2025 Platelets (Bld) [#/Vol] 240 10*3/uL Normal 150-450 [facility] Comment on above: Performed By: #### L 501.6710, L500.2500, L100.0100 ####[facility] [address] [place], [address] Potassium measurement (mass/ volume)Ordered By: Martina Martínez on 01-29-2025 Potassium (Unsp spec) [Mass/Vol] 4.1 mmol/L 3.3-5.1 [facility] Serum creatinine measurement (mass/volume)Ordered By: Martina Martínez on 01-29-2025 Creatinine [Mass/Vol] 0.65 mg/dL Low 0.70-1.20 [facility] Comment on above: Performed By: #### L 501.6710, L500.2500, L100.0100 ####[facility] [address] [place], [address] Serum glucose measurement (m ass/volume)Ordered By: Martina Martínez on 01-29-2025 Glucose [Mass/Vol] 344 mg/dL High 70-99 [facility] Comment on above: Performed By: #### L 501.6710, L500.2500, L100.0100 ####[facility] [address] [place], [address] Serum or plasma C reactive p rotein measurement (mass/volume)Ordered By: Martina Martínez on 01-29-2025 CRP [Mass/Vol] mg/L 0.0-3.0 [facility] Serum or plasma calcium xiomara urement (mass/volume)Ordered By: Martina Martínez on 01-29-2025 Calcium [Mass/Vol] 8.9 mg/dL Normal 7.6-11.0 [facility] Comment on above: Performed By: #### L 501.6710, L500.2500, L100.0100 ####[facility] [address] [place], [address] Serum or plasma ethanol xiomara urement (mass/volume)Ordered By: Latricia Burdick on 01-29-2025 Ethanol [Mass/Vol] mg/dL <10.1 [facility] Serum or plasma urea nitroge n measurement (mass/volume)Ordered By: Martina Martínez on 01-29-2025 Urea nitrogen [Mass/Vol] 6 mg/dL Normal 4-19 [facility] Comment on above: Performed By: #### L 501.6710, L500.2500, L100.0100 ####[facility] [address] [place], [address] Sodium levelOrdered By: Libby Martínez on 01-29-2025 Sodium [Moles/Vol] 134 mmol/L Normal 133-145 [facility] Comment on above: Performed By: #### L 501.6710, L500.2500, L100.0100 ####[facility] [address] [place], [address] TSH DL <= 0.005 mIU/L QnOrde red By: Latricia Burdick on 01-29-2025 TSH Qn 1.870 uIU/mL 0.300-4.20 0 [facility] Thyroid Stim Hormone (TSH)on 01-29-2025 TSH 1.870 uIU/mL Normal 0.300-4.20 0 [facility] Comment on above: Performed By: #### L 501.9520, L501.5200, L501.9985 ####[facility] [address] [place], [place], [address] Vitamin B12 ser/plasOrdered By: Latricia Burdick on 01-29-2025 Cobalamin (Vitamin B12) [Mass/Vol] 344 pg/mL 180-914 [facility] White blood cell (WBC) count Ordered By: Martina Martínez on 01-29-2025 WBC (Bld) [#/Vol] 7.8 10*3/uL Normal 4.4-11.0 [facility] Comment on above: Performed By: #### L 501.6710, L500.2500, L100.0100 ####[facility] [address] [place], [address] Anion gap in Serum or Plasma Ordered By: Darlyn Galeano on 12-12-2024 Anion gap [Moles/Vol] 11 mmol/L 5-15 [facility] Ankle min 3 Viewson 12-13-19 25 Ankle min 3 Views Normal [facility] BUN/creatinine ratioOrdered By: Darlyn Galeano on 12-12-2024 Urea nitrogen/Creatinine [Mass ratio] 8.9 mg/mg Low - [facility] Basic Metabolic Profile (BMP )on 12-12-2024 BUN/CRE 8.9 RATIO Low 03-23 [facility] Comment on above: Performed By: #### L 500.2500 ####[facility] [address] [place], [address] GAP 11 Normal - [facility] Comment on above: Performed By: #### L 500.2500 ####[facility] [address] [place], [address] Potassium [Moles/Vol] 3.9 mmol/L Normal 3.3-5.1 [facility] Comment on above: Performed By: #### L 500.2500 ####[facility] [address] [place], [address] Bedside Glucoseon 12-12-2024 FINGERSTICK GLU 346 mg/dL High 74-106 [facility] Comment on above: Result Comment: TALIA CHAMBERS OF PATIENT CARE PER NURSING PROTOCOL Performed By: #### L 501.080 ####[facility] [address] [place], [address] Carbon dioxide, total [Moles /volume] in Central venous bloodOrdered By: Darlyn Galeano on 12-12-2024 CO2 [Moles/Vol] 23.3 mmol/L Normal 21.0-32.0 [facility] Comment on above: Performed By: #### L 500.2500 ####[facility] [address] [place], [place], [address] Chloride assayOrdered By: Dipika Galeano on 12-12-2024 Chloride [Moles/Vol] 98 mmol/L Normal 98-108 [facility] Comment on above: Performed By: #### L 500.2500 ####[facility] [address] [place], [place], [address] Emergency Department Summary on 12-12-2024 Emergency Department Summary Normal [facility] Foot min 3 Viewson Foot min 3 Views Normal [facility] Glomerular filtration rate ( GFR) estimation/1.73 sq m using serum, plasma, or whole bOrdered By: Darlyn Galeano on 12-12-2024 GFR/1.73 sq M.predicted among non-blacks MDRD (S/P/Bld) [Vol rate/Area] 105 mL/min/{1.73_m2} Normal >60 [facility] Comment on above: mL/min/1.73m2 CKD-EP I Creatinine Equation (2020) Result Comment: mL/m in/1.73m2 CKD-EPI Creatinine Equation (2020) Performed By: #### L 500.2500 ####[facility] [address] [place], [place], [address] [facility] deOrdered By: Derek Paniagua on 12-12-2024 Glucose [Mass/Vol] 346 mg/dL High 74-106 [facility] Comment on above: MANAGEMENT OF PATIEN T CARE PER NURSING PROTOCOL Potassium measurement (mass/ volume)Ordered By: Darlyn Galeano on 12-12-2024 Potassium (Unsp spec) [Mass/Vol] 3.9 mmol/L 3.3-5.1 [facility] Serum creatinine measurement (mass/volume)Ordered By: Darlyn Galeano on 12-12-2024 Creatinine [Mass/Vol] 0.66 mg/dL Low 0.70-1.20 [facility] Comment on above: Performed By: #### L 500.2500 ####[facility] [address] [place], [address] Serum glucose measurement (m ass/volume)Ordered By: Darlynneville aGleano on 12-12-2024 Glucose [Mass/Vol] 327 mg/dL High 70-99 [facility] Comment on above: Performed By: #### L 500.2500 ####[facility] [address], [address] Serum or plasma calcium xiomara urement (mass/volume)Ordered By: Darlyn Galeano on 12-12-2024 Calcium [Mass/Vol] 9.2 mg/dL Normal 7.6-11.0 [facility] Comment on above: Performed By: #### L 500.2500 ####[facility] [address] [place], [address] Serum or plasma urea nitroge n measurement (mass/volume)Ordered By: Darlyn Galeano on 12-12-2024 Urea nitrogen [Mass/Vol] 6 mg/dL Normal 4-19 [facility] Comment on above: Performed By: #### L 500.2500 ####[facility] [address] [place], [address] Sodium levelOrdered By: Darlynneville Galeano on 12-12-2024 Sodium [Moles/Vol] 132 mmol/L Low 133-145 [facility] Comment on above: Performed By: #### L 500.2500 ####[facility] [address] [place], [address] 12 Lead EKGon 09-29-2024 12 Lead EKG Normal [facility] ALP [Catalytic activity/Vol] Ordered By: Nina Richardson on 09-29-2024 Serum or plasma alkaline phosphatase measurement 179 U/L High 35-104 [facility] ALT [Catalytic activity/Vol] Ordered By: Nina Richardson on 09-29-2024 Serum or plasma alanine aminotransferase (ALT) measurement 12 U/L <35 [facility] Absolute lymphocyte countOrd ered By: Nina Richardson on 09-29-2024 Lymphocytes Auto (Unsp spec) [#/Vol] 0.91 10*3/uL 0.83-4.51 [facility] Absolute neutrophil countOrd ered By: Nina Richardson on 09-29-2024 Absolute neutrophil count 14.1 X10^3/uL High 2.0-7.7 [facility] Albumin [Mass/Vol]Ordered By : Nina Richardson on 09-29-2024 Serum or plasma albumin measurement (mass/volume) 3.7 g/dL 3.5-5.0 [facility] Albumin/Globulin [Mass ratio ]Ordered By: Nina Richardson on 09-29-2024 Serum or plasma albumin/globulin mass ratio 1.0 RATIO 0.9-2.4 [facility] Anion gap [Moles/Vol]Ordered By: Nina Richardson on 09-29-2024 Anion gap in Serum or Plasma 15 5-15 [facility] Anion gap in Serum or Plasma Ordered By: Nina Richardson on 09-29-2024 Anion gap [Moles/Vol] 15 mmol/L - [facility] Automated lymphocyte count a s percentage of total leukocytesOrdered By: Nina Richardson on 09-29-2024 Lymphocytes/100 WBC Auto (Unsp spec) 5.8 % Low 19-41 [facility] BUN/creatinine ratioOrdered By: Nina Richardson on 09-29-2024 Urea nitrogen/Creatinine [Mass ratio] 20.5 mg/mg High 10-20 [facility] BUN/creatinine ratio 20.5 RATIO High 10-20 [facility] Basophil percentageOrdered B y: Nina Richardson on 09-29-2024 Basophils/100 WBC (Bld) 0.4 % 0-1 [place] Basophil percentage 0.4 % 0-1 [facility] Bedside Glucoseon 09-29-2024 FINGERSTICK GLU 382 mg/dL High 74-106 [facility] Comment on above: Result Comment: TALIA CHAMBERS OF PATIENT CARE PER NURSING PROTOCOL Performed By: #### L 501.080 ####[facility] [address] [place], [address] FINGERSTICK GLU 412 mg/dL High 74-106 [facility] Comment on above: Result Comment: TALIA GEMENT OF PATIENT CARE PER NURSING PROTOCOL Performed By: #### L 501.080 ####[facility] [address] [place], [place], [address] FINGERSTICK GLU 412 mg/dL High 74-106 [facility] Comment on above: Result Comment: TALIA GEMENT OF PATIENT CARE PER NURSING PROTOCOL Performed By: #### L 501.080 ####[facility] [address] [place], [address] Beta hydroxybutyrate [Mass/V ol]Ordered By: Nina Richardson on 09-29-2024 Beta-hydroxybutyrate 1.3 mmol/L 0.0-0.3 [facility] Beta-Hydroxbytyrateon 2024 BETA-HYDROXYBUT 1.3 mmol/L Normal 0.0-0.3 [facility] Comment on above: Performed By: #### L 501.6901 ####[facility] [address] [place], [place], [address] Beta-hydroxybutyrateOrdered By: Nina Richardson on 09-29-2024 Beta hydroxybutyrate [Mass/Vol] 1.3 mmol/L 0.0-0.3 [facility] Bilirubin Test strip Ql (U)O rdered By: Nina Richardson on 09-29-2024 Bilirubin Ql (U) Negative Negative [facility] Bilirubin, totalOrdered By: Nina Richardson on 09-29-2024 Bilirubin [Mass/Vol] 0.90 mg/dL 0.00-1.30 [facility] Bilirubin, total 0.90 mg/dL 0.00-1.30 [facility] CBC W/Diff, Automatedon 09-03 Absolute Lymph 0.91 X10 3/uL Normal 0.83-4.51 [facility] Comment on above: Performed By: #### L 500.4050, L501.2450, L100.0100 ####[facility] [address] [place], [place], [phone]) Absolute Neut 14.1 X10 3/uL High 2.0-7.7 [facility] Comment on above: Performed By: #### L 500.4050, L501.2450, L100.0100 ####[facility] [address] [place], [address] Basophils/100 WBC (Bld) 0.4 % Normal 0-1 [facility] Comment on above: Performed By: #### L 500.4050, L501.2450, L100.0100 ####[facility] [address] [place], [address] Eosinophils/100 WBC (Bld) 0.1 % Normal 0-5 [facility] Comment on above: Performed By: #### L 500.4050, L501.2450, L100.0100 ####[facility] [address] [place], [address] Erythrocyte distribution width (RBC) [Ratio] 13.2 % Normal 11.6-14.6 [facility] Comment on above: Performed By: #### L 500.4050, L501.2450, L100.0100 ####[facility] [address] [place], [address] Hematocrit (Bld) [Volume fraction] 38.0 % Normal 37-47 [facility] Comment on above: Performed By: #### L 500.4050, L501.2450, L100.0100 ####[facility] [address] [place], [address] Hemoglobin (Bld) [Mass/Vol] 12.9 g/dL Normal 12.0-15.0 [facility] Comment on above: Performed By: #### L 500.4050, L501.2450, L100.0100 ####[facility] [address] [place], [address] IG% 0.600 Normal 0.0-0.9 [facility] Comment on above: Result Comment: IG% - Immature Granulocytes (promyelocytes, myelocytes andmetamyelocytes) > 1% indicates that a LEFT SHIFT is Present. Performed By: #### L 500.4050, L501.2450, L100.0100 ####[facility] [address] [place], [address] Lymphocytes/100 WBC (Bld) 5.8 % Low 19-41 [facility] Comment on above: Performed By: #### L 500.4050, L501.2450, L100.0100 ####[facility] [address] [place], [address] MCH (RBC) [Entitic mass] 27.9 pg Normal 27.0-32.0 [facility] Comment on above: Performed By: #### L 500.4050, L501.2450, L100.0100 ####[facility] [address] [place], [address] MCHC (RBC) [Mass/Vol] 33.9 g/dL Normal 32-36 [facility] Comment on above: Performed By: #### L 500.4050, L501.2450, L100.0100 ####[facility] [address] [place], [address] MCV (RBC) [Entitic vol] 82.3 fL Normal 81-99 [facility] Comment on above: Performed By: #### L 500.4050, L501.2450, L100.0100 ####[facility] [address] [place], [address] Monocytes/100 WBC (Bld) 3.3 % Normal 0-10 [facility] Comment on above: Performed By: #### L 500.4050, L501.2450, L100.0100 ####[facility] [address] [place], [address] Neutrophils/100 WBC (Bld) 89.8 % High 47-70 [facility] Comment on above: Performed By: #### L 500.4050, L501.2450, L100.0100 ####[facility] [address] [place], [address] Nucleated RBC (Bld) [#/Vol] 0 10*3/uL Normal 0-5 [facility] Comment on above: Performed By: #### L 500.4050, L501.2450, L100.0100 ####[facility] [address] [place], [address] Platelet mean volume (Bld) [Entitic vol] 9.6 fL Normal 6.2-12.0 [facility] Comment on above: Performed By: #### L 500.4050, L501.2450, L100.0100 ####[facility] [address] [place], [address] Platelets (Bld) [#/Vol] 313 10*3/uL Normal 150-450 [facility] Comment on above: Performed By: #### L 500.4050, L501.2450, L100.0100 ####[facility] [address] [place], [address] RBC (Bld) [#/Vol] 4.62 10*6/uL Normal 4.2-5.4 [facility] Comment on above: Performed By: #### L 500.4050, L501.2450, L100.0100 ####[facility] [address] [place], [address] RDW SD 39.4 fl Normal 35.1-43.9 [facility] Comment on above: Performed By: #### L 500.4050, L501.2450, L100.0100 ####[facility] [address] [place], [address] WBC (Bld) [#/Vol] 15.7 10*3/uL High 4.4-11.0 [facility] Comment on above: Performed By: #### L 500.4050, L501.2450, L100.0100 ####[facility] [address] [place], [address] Calcium [Mass/Vol]Ordered By : Nina Richardson on 09-29-2024 Serum or plasma calcium measurement (mass/volume) 9.5 mg/dL 7.6-11.0 [facility] Carbon dioxide, total [Moles /volume] in Central venous bloodOrdered By: Nina Richardson on 09-29-2024 CO2 [Moles/Vol] 23.7 mmol/L 21.0-32.0 [facility] Carbon dioxide, total [Moles/volume] in Central venous blood 23.7 mmol/L 21.0-32.0 [facility] Chloride assayOrdered By: Es Richardson on 09-29-2024 Chloride [Moles/Vol] 97 mmol/L Low 98-108 [facility] Chloride assay 97 mmol/L Low 98-108 [facility] Clarity (U)Ordered By: Tara Richardson on 09-29-2024 Urine clarity Clear Clear [facility] Color (U)Ordered By: Billy Livingston on 09-29-2024 Urine color determination Yellow Yellow [facility] Comprehensive Metabolic Prof ilon 09-29-2024 Albumin [Mass/Vol] 3.7 g/dL Normal 3.5-5.0 [facility] Comment on above: Performed By: #### L 500.4050, L501.2450, L100.0100 ####[facility] [address] [place], [address] Albumin/Globulin [Mass ratio] 1.0 {ratio} Normal 0.9-2.4 [facility] Comment on above: Performed By: #### L 500.4050, L501.2450, L100.0100 ####[facility] [address] [place], [address] ALK PHOS 179 U/L High 35-104 [facility] Comment on above: Performed By: #### L 500.4050, L501.2450, L100.0100 ####[facility] [address] [place], [address] ALT [Catalytic activity/Vol] 12 U/L Normal <=34 [facility] Comment on above: Performed By: #### L 500.4050, L501.2450, L100.0100 ####[facility] [address] [place], [address] AST [Catalytic activity/Vol] 19 U/L Normal <=31 [facility] Comment on above: Performed By: #### L 500.4050, L501.2450, L100.0100 ####[facility] [address] [place], [address] Bilirubin [Mass/Vol] 0.90 mg/dL Normal 0.00-1.30 [facility] Comment on above: Performed By: #### L 500.4050, L501.2450, L100.0100 ####[facility] [address] [place], [address] BUN/CRE 20.5 RATIO High 10-20 [facility] Comment on above: Performed By: #### L 500.4050, L501.2450, L100.0100 ####[facility] [address] [place], [address] Calcium [Mass/Vol] 9.5 mg/dL Normal 7.6-11.0 [facility] Comment on above: Performed By: #### L 500.4050, L501.2450, L100.0100 ####[facility] [address] [place], [address] Chloride [Moles/Vol] 97 mmol/L Low 98-108 [facility] Comment on above: Performed By: #### L 500.4050, L501.2450, L100.0100 ####[facility] [address] [place], [address] CO2 [Moles/Vol] 23.7 mmol/L Normal 21.0-32.0 [facility] Comment on above: Performed By: #### L 500.4050, L501.2450, L100.0100 ####[facility] [address] [place], [address] Creatinine [Mass/Vol] 0.68 mg/dL Low 0.70-1.20 [facility] Comment on above: Performed By: #### L 500.4050, L501.2450, L100.0100 ####[facility] [address] [place], [address] ECRCL 105.00 ml/min Normal 50-250 [facility] Comment on above: Performed By: #### L 500.4050, L501.2450, L100.0100 ####[facility] [address] [place], [address] GAP 15 Normal 5-15 [facility] Comment on above: Performed By: #### L 500.4050, L501.2450, L100.0100 ####[facility] [address] [place], [address] GFR/1.73 sq M.predicted among non-blacks MDRD (S/P/Bld) [Vol rate/Area] 104 mL/min/{1.73_m2} Normal >60 [facility] Comment on above: Result Comment: mL/m in/1.73m2 CKD-EPI Creatinine Equation (2020) Performed By: #### L 500.4050, L501.2450, L100.0100 ####[facility] [address] [place], [address] Globulin (S) [Mass/Vol] 3.8 g/dL Normal 2.2-4.2 [place] Comment on above: Performed By: #### L 500.4050, L501.2450, L100.0100 ####[facility] [address] [place], [address] Glucose [Mass/Vol] 442 mg/dL High 70-99 [facility] Comment on above: Performed By: #### L 500.4050, L501.2450, L100.0100 ####[facility] [address] [place], [address] Potassium [Moles/Vol] 3.5 mmol/L Normal 3.3-5.1 [facility] Comment on above: Performed By: #### L 500.4050, L501.2450, L100.0100 ####[facility] [address] [place], [address] Sodium [Moles/Vol] 135 mmol/L Normal 133-145 [facility] Comment on above: Performed By: #### L 500.4050, L501.2450, L100.0100 ####[facility] [address] [place], [address] T PROT 7.5 g/dL Normal 5.9-8.4 [facility] Comment on above: Performed By: #### L 500.4050, L501.2450, L100.0100 ####[facility] [address] [place], [address] Urea nitrogen [Mass/Vol] 14 mg/dL Normal 4-19 [facility] Comment on above: Performed By: #### L 500.4050, L501.2450, L100.0100 ####[facility] [address] [place], [address] Creatinine [Mass/Vol]Ordered By: Nina Richardson on 09-29-2024 Serum creatinine measurement (mass/volume) 0.68 mg/dL Low 0.70-1.20 [facility] Emergency Department Summary on 09-29-2024 Emergency Department Summary Normal [facility] Eosinophil percentageOrdered By: Nina Richardson on 09-29-2024 Eosinophils/100 WBC (Bld) 0.1 % 0-5 [facility] Eosinophil percentage 0.1 % 0-5 [facility] Erythrocyte distribution wid th (RBC) [Ratio]Ordered By: Nina Richardson on 09-29-2024 Erythrocyte distribution width ratio 13.2 % 11.6-14.6 [facility] Erythrocyte distribution width standard deviation 39.4 fl 35.1-43.9 [facility] Erythrocyte distribution wid th ratioOrdered By: Nina Richardson on 09-29-2024 Erythrocyte distribution width (RBC) [Ratio] 13.2 % 11.6-14.6 [facility] Erythrocyte distribution wid th standard deviationOrdered By: Nina Richardson on 09-29-2024 Erythrocyte distribution width (RBC) [Ratio] 39.4 fl 35.1-43.9 [facility] Estimation of creatinine sylvain aranceOrdered By: Nina Richardson on 09-29-2024 Estimation of creatinine clearance 105.00 ml/min 50-250 [facility] GFR/1.73 sq M.predicted estephanie g non-blacks MDRD (S/P/Bld) [Vol rate/Area]Ordered By: Nina Richardson on 09-29-2024 Glomerular filtration rate (GFR) estimation/1.73 sq m using serum, plasma, or whole b 104 >60 [facility] Glomerular filtration rate ( GFR) estimation/1.73 sq m using serum, plasma, or whole bOrdered By: Nina Richardson on 09-29-2024 GFR/1.73 sq M.predicted among non-blacks MDRD (S/P/Bld) [Vol rate/Area] 104 mL/min/{1.73_m2} >60 [facility] Glucose Ql (U)Ordered By: Es Richardson on 09-29-2024 Urine glucose detection 1000 mg/dl High Normal [facility] Glucose [Mass/Vol]Ordered By : Nina Richardson on 09-29-2024 Serum glucose measurement (mass/volume) 442 mg/dL High 70-99 [facility] Glucose measurement at bedsi deOrdered By: Zack Card on 09-29-2024 Glucose [Mass/Vol] 382 mg/dL High 74-106 [facility] Glucose measurement at bedside 382 mg/dL High 74-106 [facility] Hematocrit Auto (Bld) [Volum e fraction]Ordered By: Nina Richardson on 09-29-2024 Hematocrit (Bld) [Volume fraction] 38.0 % 37-47 [facility] Automated blood hematocrit (percentage) 38.0 % 37-47 [facility] Hemoglobin measurementOrdere d By: Nina Richardson on 09-29-2024 Hemoglobin (Bld) [Mass/Vol] 12.9 g/dL 12.0-15.0 [facility] Hemoglobin measurement 12.9 g/dL 12.0-15.0 [facility] Immature granulocytes/100 WB C Auto (Bld)Ordered By: Nina Richardson on 09-29-2024 Immature granulocytes/100 WBC (Bld) 0.600 % 0.0-0.9 [facility] Automated immature granulocyte percentage 0.600 % 0.0-0.9 [facility] Ketones Test strip Ql (U)Ord ered By: Nina Richardson on 09-29-2024 Ketones Ql (U) 15 mg/dl High Negative [facility] Urine ketones detection by test strip 15 mg/dl High Negative [facility] Lipaseon 09-29-2024 Lipase [Catalytic activity/Vol] 30 U/L Normal 13-75 [facility] Comment on above: Result Comment: Gege edgar note:LIPASE revised reference range effective 22.New Lipase methodology. Expected to produce lower valuesthan the previous assay method.NEW Reference Range: 13 - 75 U/L Performed By: #### L 500.4050, L501.2450, L100.0100 ####[facility] [address] [place], [address] Lipase measurementOrdered By : Nina Richardson on 09-29-2024 Lipase measurement 30 U/L 13-75 [facility] Lymphocytes Auto (Unsp spec) [#/Vol]Ordered By: Nina Richardson on 09-29-2024 Absolute lymphocyte count 0.91 X10^3/uL 0.83-4.51 [facility] Lymphocytes/100 WBC Auto (Un sp spec)Ordered By: Nina Richardson on 09-29-2024 Automated lymphocyte count as percentage of total leukocytes 5.8 % Low 19-41 [facility] MCV (RBC) [Entitic vol]Order ed By: Nina Richardson on 09-29-2024 MCV (mean corpuscular volume) determination 82.3 fL 81-99 [facility] MCV (mean corpuscular volume ) determinationOrdered By: Nina Richardson on 09-29-2024 MCV (RBC) [Entitic vol] 82.3 fL 81-99 [facility] Mean corpuscular hemoglobin (MCH) determinationOrdered By: Nina Richardson on 09-29-2024 MCH (RBC) [Entitic mass] 27.9 pg 27.0-32.0 [facility] Mean corpuscular hemoglobin (MCH) determination 27.9 pg 27.0-32.0 [facility] Mean corpuscular hemoglobin concentration (MCHC) determinationOrdered By: Nina Richardson on 09-29-2024 Mean corpuscular hemoglobin concentration (MCHC) determination 33.9 g/dL 32-36 [facility] Mean platelet volume determi nationOrdered By: Nina Richardson on 09-29-2024 Mean platelet volume determination 9.6 fl 6.2-12.0 [facility] Monocyte percentageOrdered B y: Nina Richardson on 09-29-2024 Monocytes/100 WBC (Bld) 3.3 % 0-10 [facility] Monocyte percentage 3.3 % 0-10 [facility] Mucus LM Ql (Urine sed)Order ed By: Nina Richardson on 09-29-2024 Mucus Ql (Urine sed) 0 SEEN /hpf [facility] Neutrophil percentageOrdered By: Nina Richardson on 09-29-2024 Neutrophils/100 WBC (Bld) 89.8 % High 47-70 [facility] Neutrophil percentage 89.8 % High 47-70 [facility] Nitrite Test strip Ql (U)Ord ered By: Nina Richardson on 09-29-2024 Nitrite Ql (U) Negative Negative [facility] No Panel InformationOrdered By: Nina Richardson on 09-29-2024 19 U/L <32 [facility] Nucleated red blood cell per centageOrdered By: Nina Richardson on 09-29-2024 Nucleated red blood cell percentage 0 % 0-5 [facility] Platelet countOrdered By: Es Richardson on 09-29-2024 Platelets (Bld) [#/Vol] 313 10*3/uL 150-450 [facility] Platelet count 313 K/mm3 150-450 [facility] Potassium (Unsp spec) [Mass/ Vol]Ordered By: Nina Richardson on 09-29-2024 Potassium measurement (mass/volume) 3.5 mmol/L 3.3-5.1 [facility] Potassium measurement (mass/ volume)Ordered By: Nina Richardson on 09-29-2024 Potassium (Unsp spec) [Mass/Vol] 3.5 mmol/L 3.3-5.1 [facility] Protein Test strip Ql (U)Ord ered By: Nina Richardson on 09-29-2024 Protein Ql (U) 100 mg/dl High Negative [facility] Urine protein assay by test strip, semi-quantitative 100 mg/dl High Negative [facility] RBC Auto (Bld) [#/Vol]Ordere d By: Nina Richardson on 09-29-2024 RBC (Bld) [#/Vol] 4.62 10*6/uL 4.2-5.4 [facility] Automated blood erythrocyte count 4.62 M/mm3 4.2-5.4 [facility] Serum creatinine measurement (mass/volume)Ordered By: Nina Richardson on 09-29-2024 Creatinine [Mass/Vol] 0.68 mg/dL Low 0.70-1.20 [facility] Serum globulin measurementOr dered By: Nina Richardson on 09-29-2024 Globulin (S) [Mass/Vol] 3.8 g/dL 2.2-4.2 [facility] Serum globulin measurement 3.8 g/dL 2.2-4.2 [facility] Serum glucose measurement (m ass/volume)Ordered By: Nina Richardson on 09-29-2024 Glucose [Mass/Vol] 442 mg/dL High 70-99 [facility] Serum or plasma alanine hamilton otransferase (ALT) measurementOrdered By: Nina Richardson on 09-29-2024 ALT [Catalytic activity/Vol] 12 U/L <35 [facility] Serum or plasma albumin xiomara urement (mass/volume)Ordered By: Nina Richardson on 09-29-2024 Albumin [Mass/Vol] 3.7 g/dL 3.5-5.0 [facility] Serum or plasma albumin/glob ulin mass ratioOrdered By: Nina Richardson on 09-29-2024 Albumin/Globulin [Mass ratio] 1.0 {ratio} 0.9-2.4 [facility] Serum or plasma alkaline sabiha sphatase measurementOrdered By: Nina Richardson on 09-29-2024 ALP [Catalytic activity/Vol] 179 U/L High 35-104 [facility] Serum or plasma calcium xiomara urement (mass/volume)Ordered By: Nina Richardson on 09-29-2024 Calcium [Mass/Vol] 9.5 mg/dL 7.6-11.0 [facility] Serum or plasma urea nitroge n measurement (mass/volume)Ordered By: Nina Richardson on 09-29-2024 Urea nitrogen [Mass/Vol] 14 mg/dL 4-19 [facility] Sodium levelOrdered By: Carissa Richardson on 09-29-2024 Sodium [Moles/Vol] 135 mmol/L 133-145 [facility] Sodium level 135 mmol/L 133-145 [facility] Specific gravity (U) [Rel de nsity]Ordered By: Nina Richardson on 09-29-2024 Urine specific gravity measurement 1.010 1.002-1.03 0 [facility] Squamous epithelial cells de tection in urine sediment by light microscopyOrdered By: Nina Richardson on 09-29-2024 Epithelial cells.squamous LM Ql (Urine sed) 0-5 SEEN /hpf 5-10 [facility] Total proteinOrdered By: Yamil Richardson on 09-29-2024 Protein [Mass/Vol] 7.5 g/dL 5.9-8.4 [facility] Total protein 7.5 g/dL 5.9-8.4 [facility] Urea nitrogen [Mass/Vol]Orde red By: Nina Richardson on 09-29-2024 Serum or plasma urea nitrogen measurement (mass/volume) 14 mg/dL 4-19 [facility] Urinalysis, Completeon 09-29 EPI,SQUAMOUS 0-5 SEEN Normal 5-10 [facility] Comment on above: Order Comment: CLEAN CATCH Performed By: #### L 400.0001 ####[facility] [address] [facility] [address] RBC 0-5 SEEN Normal 0-5 [facility] Comment on above: Order Comment: CLEAN CATCH Performed By: #### L 400.0001 ####[facility] [address] [place], [address] WBC 0-5 SEEN Normal 0-5 [facility] Comment on above: Order Comment: CLEAN CATCH Performed By: #### L 400.0001 ####[facility] [address] [place], [address] BACTERIA 0 SEEN Normal None Seen [facility] Comment on above: Order Comment: CLEAN CATCH Performed By: #### L 400.0001 ####[facility] [address] [place], [address] Mucus Ql (Urine sed) 0 SEEN Normal [facility] Comment on above: Order Comment: CLEAN CATCH Performed By: #### L 400.0001 ####[facility] [address] [place], [address] Urine blood detectionOrdered By: Nina Richardson on 09-29-2024 Urine blood detection 25 /ul High Negative [facility] Urine clarityOrdered By: Yamil Richardson on 09-29-2024 Clarity (U) Clear Clear [facility] Urine color determinationOrd ered By: Nian Richardson on 09-29-2024 Color (U) Yellow Yellow [facility] Urine glucose detectionOrder ed By: Nina Richardson on 09-29-2024 Glucose Ql (U) 1000 mg/dl High Normal [facility] Urine leukocyte esterase det ection by dipstickOrdered By: Nina Richardson on 09-29-2024 Leukocyte esterase Test strip Ql (U) Negative Negative [facility] Urine pHOrdered By: Martin Richardson on 09-29-2024 pH (U) 7.0 [pH] 5.0 - 8.0 [facility] Urine sediment bacteria coun t by microscopy (number/high power field)Ordered By: Nina Richardson on 09-29-2024 Bacteria LM.HPF (Urine sed) [#/Area] 0 /[HPF] None Seen [facility] Urine sediment bacteria count by microscopy (number/high power field) 0 SEEN /hpf [facility] Urine specific gravity measu rementOrdered By: Nina Richardson on 09-29-2024 Specific gravity (U) [Rel density] 1.010 1.002-1.03 0 [facility] Urine total bilirubin detect ion by test stripOrdered By: Nina Richardson on 09-29-2024 Urine total bilirubin detection by test strip Negative Negative [facility] Urine urobilinogen measureme ntOrdered By: Nina Richardson on 09-29-2024 Urobilinogen Ql (U) Normal mg/dl Normal [facility] Urobilinogen Ql (U)Ordered B y: Nina Richardson on 09-29-2024 Urine urobilinogen measurement Normal mg/dl Normal [facility] White blood cell (WBC) count Ordered By: Nina Richardson on 09-29-2024 WBC (Bld) [#/Vol] 15.7 10*3/uL High 4.4-11.0 [facility] White blood cell (WBC) count 15.7 K/mm3 High 4.4-11.0 [facility] White blood cell countOrdere d By: Nina Richardson on 09-29-2024 White blood cell count 0-5 SEEN /hpf 0-5 [facility] White blood cell count 0-5 SEEN /hpf 5-10 [facility] pH (U)Ordered By: Nina Richardson on 09-29-2024 Urine pH 7.0 5.0 - 8.0 [facility] ALP [Catalytic activity/Vol] Ordered By: Riccardo Hillman on 09-21-2024 Serum or plasma alkaline phosphatase measurement 128 U/L High 35-104 [facility] ALT [Catalytic activity/Vol] Ordered By: Riccardo Hillman on 09-21-2024 Serum or plasma alanine aminotransferase (ALT) measurement 13 U/L <35 [facility] Absolute lymphocyte countOrd ered By: Nina Richardson on 09-21-2024 Lymphocytes Auto (Unsp spec) [#/Vol] 1.03 10*3/uL 0.83-4.51 [facility] Absolute neutrophil countOrd ered By: Nina Richardson on 09-21-2024 Absolute neutrophil count 8.9 X10^3/uL High 2.0-7.7 [facility] Albumin [Mass/Vol]Ordered By : Riccardo Hillman on 09-21-2024 Serum or plasma albumin measurement (mass/volume) 3.6 g/dL 3.5-5.0 [facility] Albumin/Globulin [Mass ratio ]Ordered By: Riccardo Hillman on 09-21-2024 Serum or plasma albumin/globulin mass ratio 1.1 RATIO 0.9-2.4 [facility] Anion gap [Moles/Vol]Ordered By: Riccardo Hillman on 09-21-2024 Anion gap in Serum or Plasma 11 5-15 [facility] Anion gap in Serum or Plasma Ordered By: Riccardo Hillman on 09-21-2024 Anion gap [Moles/Vol] 11 mmol/L 5-15 [facility] Automated lymphocyte count a s percentage of total leukocytesOrdered By: Nina Richardson on 09-21-2024 Lymphocytes/100 WBC Auto (Unsp spec) 9.8 % Low 19-41 [facility] BUN/creatinine ratioOrdered By: Riccardo Hillman on 09-21-2024 Urea nitrogen/Creatinine [Mass ratio] 13.7 mg/mg 10-20 [facility] BUN/creatinine ratio 13.7 RATIO 10-20 [facility] Basophil percentageOrdered B y: Nina Richardson on 09-21-2024 Basophils/100 WBC (Bld) 0.4 % 0-1 [facility] Basophil percentage 0.4 % 0-1 [facility] Bilirubin Test strip Ql (U)O rdered By: Nina Richardson on 09-21-2024 Bilirubin Ql (U) Negative Negative [facility] Bilirubin, totalOrdered By: Riccardo Hillman on 09-21-2024 Bilirubin [Mass/Vol] 1.08 mg/dL 0.00-1.30 [facility] Bilirubin, total 1.08 mg/dL 0.00-1.30 [facility] CBC W/Diff, Automatedon - Absolute Lymph 1.03 X10 3/uL Normal 0.83-4.51 [facility] Comment on above: Performed By: #### L 100.0100, L500.4050 ####[facility] [address] [place], [address] Absolute Neut 8.9 X10 3/uL High 2.0-7.7 [facility] Comment on above: Performed By: #### L 100.0100, L500.4050 ####[facility] [address] [place], [address] Basophils/100 WBC (Bld) 0.4 % Normal 0-1 [facility] Comment on above: Performed By: #### L 100.0100, L500.4050 ####[facility] [address] [place], [address] Eosinophils/100 WBC (Bld) 0.6 % Normal 0-5 [facility] Comment on above: Performed By: #### L 100.0100, L500.4050 ####[facility] [address] [place], [address] Erythrocyte distribution width (RBC) [Ratio] 13.0 % Normal 11.6-14.6 [facility] Comment on above: Performed By: #### L 100.0100, L500.4050 ####[facility] [address] [place], [address] Hematocrit (Bld) [Volume fraction] 37.7 % Normal 37-47 [facility] Comment on above: Performed By: #### L 100.0100, L500.4050 ####[facility] [address] [place], [address] Hemoglobin (Bld) [Mass/Vol] 13.0 g/dL Normal 12.0-15.0 [facility] Comment on above: Performed By: #### L 100.0100, L500.4050 ####[facility] [address] [place], [address] IG% 0.300 Normal 0.0-0.9 [facility] Comment on above: Result Comment: IG% - Immature Granulocytes (promyelocytes, myelocytes andmetamyelocytes) > 1% indicates that a LEFT SHIFT is Present. Performed By: #### L 100.0100, L500.4050 ####[facility] [address] [place], [address] Lymphocytes/100 WBC (Bld) 9.8 % Low 19-41 [facility] Comment on above: Performed By: #### L 100.0100, L500.4050 ####[facility] [address] [place], [address] MCH (RBC) [Entitic mass] 29.0 pg Normal 27.0-32.0 [facility] Comment on above: Performed By: #### L 100.0100, L500.4050 ####[facility] [address] [place], [address] MCHC (RBC) [Mass/Vol] 34.5 g/dL Normal 32-36 [facility] Comment on above: Performed By: #### L 100.0100, L500.4050 ####[facility] [address] [place], [address] MCV (RBC) [Entitic vol] 84.0 fL Normal 81-99 [facility] Comment on above: Performed By: #### L 100.0100, L500.4050 ####[facility] [address] [place], [address] Monocytes/100 WBC (Bld) 4.3 % Normal 0-10 [facility] Comment on above: Performed By: #### L 100.0100, L500.4050 ####[facility] [address] [place], [address] Neutrophils/100 WBC (Bld) 84.6 % High 47-70 [facility] Comment on above: Performed By: #### L 100.0100, L500.4050 ####[facility] [address] [place], [address] Nucleated RBC (Bld) [#/Vol] 0 10*3/uL Normal 0-5 [facility] Comment on above: Performed By: #### L 100.0100, L500.4050 ####[facility] [address] [place], [address] Platelet mean volume (Bld) [Entitic vol] 9.3 fL Normal 6.2-12.0 [facility] Comment on above: Performed By: #### L 100.0100, L500.4050 ####[facility] [address] [place], [address] Platelets (Bld) [#/Vol] 275 10*3/uL Normal 150-450 [facility] Comment on above: Performed By: #### L 100.0100, L500.4050 ####[facility] [address] [place], [address] RBC (Bld) [#/Vol] 4.49 10*6/uL Normal 4.2-5.4 [facility] Comment on above: Performed By: #### L 100.0100, L500.4050 ####[facility] [address] [place], [address] RDW SD 39.7 fl Normal 35.1-43.9 [facility] Comment on above: Performed By: #### L 100.0100, L500.4050 ####[facility] [address] [place], [address] WBC (Bld) [#/Vol] 10.5 10*3/uL Normal 4.4-11.0 [facility] Comment on above: Performed By: #### L 100.0100, L500.4050 ####[facility] [address] [place], [address] Calcium [Mass/Vol]Ordered By : Riccardo Hillman on 09-21-2024 Serum or plasma calcium measurement (mass/volume) 9.3 mg/dL 7.6-11.0 [facility] Carbon dioxide, total [Moles /volume] in Central venous bloodOrdered By: Riccardo Hillman on 09-21-2024 CO2 [Moles/Vol] 25.8 mmol/L 21.0-32.0 [facility] Carbon dioxide, total [Moles/volume] in Central venous blood 25.8 mmol/L 21.0-32.0 [facility] Chloride assayOrdered By: Bertram Hillman on 09-21-2024 Chloride [Moles/Vol] 95 mmol/L Low 98-108 [facility] Chloride assay 95 mmol/L Low 98-108 [facility] Clarity (U)Ordered By: Tara Richardson on 09-21-2024 Urine clarity Clear Clear [facility] Color (U)Ordered By: Billy Livingston on 09-21-2024 Urine color determination Yellow Yellow [facility] Comprehensive Metabolic Prof ilon 09-21-2024 Albumin [Mass/Vol] 3.6 g/dL Normal 3.5-5.0 [facility] Comment on above: Order Comment: REDRA W. PREVIOUS SPECIMEN REJECTED DUE TOSPECIMEN BEING HEMOLYZED. 09/21/245 Jevon Vergarar. Performed By: #### L 500.4050, L501.2450 ####[facility] [address] [place], [address] Albumin/Globulin [Mass ratio] 1.1 {ratio} Normal 0.9-2.4 [facility] Comment on above: Order Comment: REDRA W. PREVIOUS SPECIMEN REJECTED DUE TOSPECIMEN BEING HEMOLYZED. 09/21/241314 Jevon Vergarar. Performed By: #### L 500.4050, L501.2450 ####[facility] [address] [place], [address] ALK PHOS 128 U/L High 35-104 [facility] Comment on above: Order Comment: REDRA W. PREVIOUS SPECIMEN REJECTED DUE TOSPECIMEN BEING HEMOLYZED. 09/21/241314 Jevon Vergarar. Performed By: #### L 500.4050, L501.2450 ####[facility] [address] [place], [address] ALT [Catalytic activity/Vol] 13 U/L Normal <=34 [facility] Comment on above: Order Comment: REDRA W. PREVIOUS SPECIMEN REJECTED DUE TOSPECIMEN BEING HEMOLYZED. 09/21/241314 Jevon Vergarar. Performed By: #### L 500.4050, L501.2450 ####[facility] [address] [place], [address] AST [Catalytic activity/Vol] 19 U/L Normal <=31 [facility] Comment on above: Order Comment: REDRA W. PREVIOUS SPECIMEN REJECTED DUE TOSPECIMEN BEING HEMOLYZED. 09/21/245 Jevon Vergarar. Performed By: #### L 500.4050, L501.2450 ####[facility] [address] [place], [address] Bilirubin [Mass/Vol] 1.08 mg/dL Normal 0.00-1.30 [facility] Comment on above: Order Comment: REDRA W. PREVIOUS SPECIMEN REJECTED DUE TOSPECIMEN BEING HEMOLYZED. 09/21/241314 Jevon Angeles. Performed By: #### L 500.4050, L501.2450 ####[facility] [address] [place], [address] BUN/CRE 13.7 RATIO Normal 10-20 [facility] Comment on above: Order Comment: REDRA W. PREVIOUS SPECIMEN REJECTED DUE TOSPECIMEN BEING HEMOLYZED. 09/21/241314 Jevon Angeles. Performed By: #### L 500.4050, L501.2450 ####[facility] [address] [place], [address] Calcium [Mass/Vol] 9.3 mg/dL Normal 7.6-11.0 [facility] Comment on above: Order Comment: REDRA W. PREVIOUS SPECIMEN REJECTED DUE TOSPECIMEN BEING HEMOLYZED. 09/21/241314 Jevon Angeles. Performed By: #### L 500.4050, L501.2450 ####[facility] [address] [place], [address] Chloride [Moles/Vol] 95 mmol/L Low 98-108 [facility] Comment on above: Order Comment: REDRA W. PREVIOUS SPECIMEN REJECTED DUE TOSPECIMEN BEING HEMOLYZED. 09/21/241314 Jevon Squires Performed By: #### L 500.4050, L501.2450 ####[facility] [address] [place], [address] CO2 [Moles/Vol] 25.8 mmol/L Normal 21.0-32.0 [facility] Comment on above: Order Comment: REDRA W. PREVIOUS SPECIMEN REJECTED DUE TOSPECIMEN BEING HEMOLYZED. 09/21/241314 Jevon Angeles. Performed By: #### L 500.4050, L501.2450 ####[facility] [address] [place], [address] Creatinine [Mass/Vol] 0.67 mg/dL Low 0.70-1.20 [facility] Comment on above: Order Comment: REDRA W. PREVIOUS SPECIMEN REJECTED DUE TOSPECIMEN BEING HEMOLYZED. 09/21/24 1315 Jevon Angeles. Performed By: #### L 500.4050, L501.2450 ####[facility] [address] [place], [address] ECRCL 107.12 ml/min Normal 50-250 [facility] Comment on above: Order Comment: REDRA W. PREVIOUS SPECIMEN REJECTED DUE TOSPECIMEN BEING HEMOLYZED. 09/21/245 Jevon Squires Performed By: #### L 500.4050, L501.2450 ####[facility] [address] [place], [address] GAP 11 Normal 5-15 [facility] Comment on above: Order Comment: REDRA W. PREVIOUS SPECIMEN REJECTED DUE TOSPECIMEN BEING HEMOLYZED. 09/21/245 Jevon Squires Performed By: #### L 500.4050, L501.2450 ####[facility] [address] [place], [address] GFR/1.73 sq M.predicted among non-blacks MDRD (S/P/Bld) [Vol rate/Area] 105 mL/min/{1.73_m2} Normal >60 [facility] Comment on above: Order Comment: REDRA W. PREVIOUS SPECIMEN REJECTED DUE TOSPECIMEN BEING HEMOLYZED. 09/21/245 Jevon Squires Result Comment: mL/m in/1.73m2 CKD-EPI Creatinine Equation (2020) Performed By: #### L 500.4050, L501.2450 ####[facility] [address] [place], [address] Globulin (S) [Mass/Vol] 3.3 g/dL Normal 2.2-4.2 [facility] Comment on above: Order Comment: REDRA W. PREVIOUS SPECIMEN REJECTED DUE TOSPECIMEN BEING HEMOLYZED. 09/21/241314 Jevon Angeles. Performed By: #### L 500.4050, L501.2450 ####[facility] [address] [place], [address] Glucose [Mass/Vol] 336 mg/dL High 70-99 [facility] Comment on above: Order Comment: REDRA W. PREVIOUS SPECIMEN REJECTED DUE TOSPECIMEN BEING HEMOLYZED. 09/21/241314 Jevon Angeles. Performed By: #### L 500.4050, L501.2450 ####[facility] [address] [place], [address] Potassium [Moles/Vol] 3.3 mmol/L Normal 3.3-5.1 [facility] Comment on above: Order Comment: REDRA W. PREVIOUS SPECIMEN REJECTED DUE TOSPECIMEN BEING HEMOLYZED. 09/21/241314 Jevon Angeles. Performed By: #### L 500.4050, L501.2450 ####[facility] [address] [place], [address] Sodium [Moles/Vol] 132 mmol/L Low 133-145 [facility] Comment on above: Order Comment: REDRA W. PREVIOUS SPECIMEN REJECTED DUE TOSPECIMEN BEING HEMOLYZED. 09/21/241314 Jevon Squires Performed By: #### L 500.4050, L501.2450 ####[facility] [address] [place], [address] T PROT 6.9 g/dL Normal 5.9-8.4 [facility] Comment on above: Order Comment: REDRA W. PREVIOUS SPECIMEN REJECTED DUE TOSPECIMEN BEING HEMOLYZED. 09/21/241314 Jevon R Stoner. Performed By: #### L 500.4050, L501.2450 ####[facility] [address] [place], [address] Urea nitrogen [Mass/Vol] 9 mg/dL Normal 4-19 [facility] Comment on above: Order Comment: REDRA W. PREVIOUS SPECIMEN REJECTED DUE TOSPECIMEN BEING HEMOLYZED. 09/21/24 1315 Jevon Vergarar. Performed By: #### L 500.4050, L501.2450 ####[facility] [address] [place], [address] ALB Normal 3.5-5.0 [facility] Comment on above: Result Comment: This specimen has been REJECTED due to Laboratory criteria:Hemolyzed.ED STAFF has been notified of need of recollection.09/21/24 1314 Jevon Vergarar Performed By: #### L 100.0100, L500.4050 ####[facility] [address] [place], [address] ALK PHOS Normal 35-104 [facility] Comment on above: Result Comment: This specimen has been REJECTED due to Laboratory criteria:Hemolyzed.ED STAFF has been notified of need of recollection.09/21/24 1314 Jevon Vergarar Performed By: #### L 100.0100, L500.4050 ####[facility] [address] [place], [address] ALT Normal <=34 [facility] Comment on above: Result Comment: This specimen has been REJECTED due to Laboratory criteria:Hemolyzed.ED STAFF has been notified of need of recollection.09/21/24 1314 Jevon Vergarar Performed By: #### L 100.0100, L500.4050 ####[facility] [address] [place], [address] AST Normal <=31 [facility] Comment on above: Result Comment: This specimen has been REJECTED due to Laboratory criteria:Hemolyzed.ED STAFF has been notified of need of recollection.09/21/24 1314 Jevon R Stoner Performed By: #### L 100.0100, L500.4050 ####[facility] [address] [place], [address] BUN Normal 4-19 [facility] Comment on above: Result Comment: This specimen has been REJECTED due to Laboratory criteria:Hemolyzed.ED STAFF has been notified of need of recollection.09/21/244 Jevon R Stoner Performed By: #### L 100.0100, L500.4050 ####[facility] [address] [place], [address] BUN/CRE Normal 10-20 [facility] Comment on above: Result Comment: This specimen has been REJECTED due to Laboratory criteria:Hemolyzed.ED STAFF has been notified of need of recollection.09/21/244 Jevon R Stoner Performed By: #### L 100.0100, L500.4050 ####[facility] [address] [place], [address] Calcium Normal 7.6-11.0 [facility] Comment on above: Result Comment: This specimen has been REJECTED due to Laboratory criteria:Hemolyzed.ED STAFF has been notified of need of recollection.09/21/241313 Jevon R Stoner Performed By: #### L 100.0100, L500.4050 ####[facility] [address] [place], [address] CL Normal 98-108 [facility] Comment on above: Result Comment: This specimen has been REJECTED due to Laboratory criteria:Hemolyzed.ED STAFF has been notified of need of recollection.09/21/241313 Jevon R Stoner Performed By: #### L 100.0100, L500.4050 ####[facility] [address] [place], [address] CO2 Normal 21.0-32.0 [facility] Comment on above: Result Comment: This specimen has been REJECTED due to Laboratory criteria:Hemolyzed.ED STAFF has been notified of need of recollection.09/21/24 1314 Jevon R Stoner Performed By: #### L 100.0100, L500.4050 ####[facility] [address] [place], [address] CREAT,SERUM Normal 0.70-1.20 [facility] Comment on above: Result Comment: This specimen has been REJECTED due to Laboratory criteria:Hemolyzed.ED STAFF has been notified of need of recollection.09/21/24 1314 Jevon R Stoner Performed By: #### L 100.0100, L500.4050 ####[facility] [address] [place], [address] eGFR Normal >60 [facility] Comment on above: Result Comment: This specimen has been REJECTED due to Laboratory criteria:Hemolyzed.ED STAFF has been notified of need of recollection.09/21/244 Jevon R Stoner Performed By: #### L 100.0100, L500.4050 ####[facility] [address] [place], [address] GAP Normal 5-15 [facility] Comment on above: Result Comment: This specimen has been REJECTED due to Laboratory criteria:Hemolyzed.ED STAFF has been notified of need of recollection.09/21/24 1314 Jevon R Stoner Performed By: #### L 100.0100, L500.4050 ####[facility] [address] [place], [address] GLU Normal 70-99 [facility] Comment on above: Result Comment: This specimen has been REJECTED due to Laboratory criteria:Hemolyzed.ED STAFF has been notified of need of recollection.09/21/24 1314 Jevon R Stoner Performed By: #### L 100.0100, L500.4050 ####[facility] [address] [place], [address] Potassium Normal 3.3-5.1 [facility] Comment on above: Result Comment: This specimen has been REJECTED due to Laboratory criteria:Hemolyzed.ED STAFF has been notified of need of recollection.09/21/241313 Jevon R Stoner Performed By: #### L 100.0100, L500.4050 ####[facility] [address] [place], [address] T BILI Normal 0.00-1.30 [facility] Comment on above: Result Comment: This specimen has been REJECTED due to Laboratory criteria:Hemolyzed.ED STAFF has been notified of need of recollection.09/21/241313 Jevon R Stoner Performed By: #### L 100.0100, L500.4050 ####[facility] [address] [place], [address] T PROT Normal 5.9-8.4 [facility] Comment on above: Result Comment: This specimen has been REJECTED due to Laboratory criteria:Hemolyzed.ED STAFF has been notified of need of recollection.09/21/241313 Jevon R Stoner Performed By: #### L 100.0100, L500.4050 ####[facility] [address] [place], [address] Comprehensive Metabolic Profil Normal 133-145 [facility] Comment on above: Result Comment: This specimen has been REJECTED due to Laboratory criteria:Hemolyzed.ED STAFF has been notified of need of recollection.09/21/241313 Jevon R Stoner Performed By: #### L 100.0100, L500.4050 ####[facility] [address] [place], [address] Creatinine [Mass/Vol]Ordered By: Riccardo Hillman on 09-21-2024 Serum creatinine measurement (mass/volume) 0.67 mg/dL Low 0.70-1.20 [facility] Emergency Department Summary on 09-21-2024 Emergency Department Summary Normal [facility] Eosinophil percentageOrdered By: Nina Richardson on 09-21-2024 Eosinophils/100 WBC (Bld) 0.6 % 0-5 [facility] Eosinophil percentage 0.6 % 0-5 [facility] Erythrocyte distribution wid th (RBC) [Ratio]Ordered By: Nina Richardson on 09-21-2024 Erythrocyte distribution width ratio 13.0 % 11.6-14.6 [facility] Erythrocyte distribution width standard deviation 39.7 fl 35.1-43.9 [facility] Erythrocyte distribution wid th ratioOrdered By: Nina Richardson on 09-21-2024 Erythrocyte distribution width (RBC) [Ratio] 13.0 % 11.6-14.6 [facility] Erythrocyte distribution wid th standard deviationOrdered By: Nina Richardson on 09-21-2024 Erythrocyte distribution width (RBC) [Ratio] 39.7 fl 35.1-43.9 [facility] Estimation of creatinine sylvain aranceOrdered By: Riccardo Hillman on 09-21-2024 Estimation of creatinine clearance 107.12 ml/min 50-250 [facility] GFR/1.73 sq M.predicted estephanie g non-blacks MDRD (S/P/Bld) [Vol rate/Area]Ordered By: Riccardo Hillman on 09-21-2024 Glomerular filtration rate (GFR) estimation/1.73 sq m using serum, plasma, or whole b 105 >60 [facility] Glomerular filtration rate ( GFR) estimation/1.73 sq m using serum, plasma, or whole bOrdered By: Riccardo Hillman on 09-21-2024 GFR/1.73 sq M.predicted among non-blacks MDRD (S/P/Bld) [Vol rate/Area] 105 mL/min/{1.73_m2} >60 [facility] Glucose Ql (U)Ordered By: Es Richardson on 09-21-2024 Urine glucose detection 1000 mg/dl High Normal [facility] Glucose [Mass/Vol]Ordered By : Riccardo Hillman on 09-21-2024 Serum glucose measurement (mass/volume) 336 mg/dL High 70-99 [facility] Hematocrit Auto (Bld) [Volum e fraction]Ordered By: Nina Richardson on 09-21-2024 Hematocrit (Bld) [Volume fraction] 37.7 % 37- [facility] Automated blood hematocrit (percentage) 37.7 % 37- [facility] Hemoglobin measurementOrdere d By: Nina Richardson on 09-21-2024 Hemoglobin (Bld) [Mass/Vol] 13.0 g/dL 12.0-15.0 [facility] Hemoglobin measurement 13.0 g/dL 12.0-15.0 [facility] Immature granulocytes/100 WB C Auto (Bld)Ordered By: Nina Richardson on 09-21-2024 Immature granulocytes/100 WBC (Bld) 0.300 % 0.0-0.9 [facility] Automated immature granulocyte percentage 0.300 % 0.0-0.9 [facility] Ketones Test strip Ql (U)Ord ered By: Nina Richardson on 09-21-2024 Ketones Ql (U) Negative Negative [facility] Lipaseon 09-21-2024 Lipase [Catalytic activity/Vol] 16 U/L Normal - [facility] Comment on above: Order Comment: REUBEN W. PREVIOUS SPECIMEN REJECTED DUE TOSPECIMEN BEING HEMOLYZED. 09/21/24 1315 Jevon Angeles. Result Comment: Gege edgar note:LIPASE revised reference range effective 22.New Lipase methodology. Expected to produce lower valuesthan the previous assay method.NEW Reference Range: 13 - 75 U/L Performed By: #### L 500.4050, L501.2450 ####[facility] [address] [place], [address] Lipase measurementOrdered By : Riccardo Hillman on 09-21-2024 Lipase measurement 16 U/L 13-75 [facility] Lymphocytes Auto (Unsp spec) [#/Vol]Ordered By: Nina Richardson on 09-21-2024 Absolute lymphocyte count 1.03 X10^3/uL 0.83-4.51 [facility] Lymphocytes/100 WBC Auto (Un sp spec)Ordered By: Nina Richardson on 09-21-2024 Automated lymphocyte count as percentage of total leukocytes 9.8 % Low 19-41 [facility] MCV (RBC) [Entitic vol]Order ed By: Nina Richardson on 09-21-2024 MCV (mean corpuscular volume) determination 84.0 fL 81-99 [facility] MCV (mean corpuscular volume ) determinationOrdered By: Nina Richardson on 09-21-2024 MCV (RBC) [Entitic vol] 84.0 fL 81-99 [facility] Mean corpuscular hemoglobin (MCH) determinationOrdered By: Nina Richardson on 09-21-2024 MCH (RBC) [Entitic mass] 29.0 pg 27.0-32.0 [facility] Mean corpuscular hemoglobin (MCH) determination 29.0 pg 27.0-32.0 [facility] Mean corpuscular hemoglobin concentration (MCHC) determinationOrdered By: Nina Richardson on 09-21-2024 Mean corpuscular hemoglobin concentration (MCHC) determination 34.5 g/dL 32-36 [facility] Mean platelet volume determi nationOrdered By: Nina Richardson on 09-21-2024 Mean platelet volume determination 9.3 fl 6.2-12.0 [facility] Microscopic analysis of urin e for red blood cells (RBC)Ordered By: Nina Richardson on 09-21-2024 Microscopic analysis of urine for red blood cells (RBC) 0-5 SEEN /hpf 5-10 [facility] Monocyte percentageOrdered B y: Nina Richardson on 09-21-2024 Monocytes/100 WBC (Bld) 4.3 % 0-10 [facility] Monocyte percentage 4.3 % 0-10 [facility] Mucus LM Ql (Urine sed)Order ed By: Nina Richardson on 09-21-2024 Mucus Ql (Urine sed) 0 SEEN /hpf [facility] Neutrophil percentageOrdered By: Nina Richardson on 09-21-2024 Neutrophils/100 WBC (Bld) 84.6 % High 47-70 [facility] Neutrophil percentage 84.6 % High 47-70 [facility] Nitrite Test strip Ql (U)Ord ered By: Nina Richardson on 09-21-2024 Nitrite Ql (U) Negative Negative [facility] No Panel InformationOrdered By: Riccardo Hillman on 09-21-2024 19 U/L <32 [facility] Nucleated red blood cell per centageOrdered By: Nina Richardson on 09-21-2024 Nucleated red blood cell percentage 0 % 0-5 [facility] Platelet countOrdered By: Es Richardson on 09-21-2024 Platelets (Bld) [#/Vol] 275 10*3/uL 150-450 [facility] Platelet count 275 K/mm3 150-450 [facility] Potassium (Unsp spec) [Mass/ Vol]Ordered By: Riccardo Hillman on 09-21-2024 Potassium measurement (mass/volume) 3.3 mmol/L 3.3-5.1 [facility] Potassium measurement (mass/ volume)Ordered By: Riccardo Hillman on 09-21-2024 Potassium (Unsp spec) [Mass/Vol] 3.3 mmol/L 3.3-5.1 [facility] Protein Test strip Ql (U)Ord ered By: Nina Richardson on 09-21-2024 Protein Ql (U) 100 mg/dl High Negative [facility] Urine protein assay by test strip, semi-quantitative 100 mg/dl High Negative [facility] RBC Auto (Bld) [#/Vol]Ordere d By: Nina Richardson on 09-21-2024 RBC (Bld) [#/Vol] 4.49 10*6/uL 4.2-5.4 [facility] Automated blood erythrocyte count 4.49 M/mm3 4.2-5.4 [facility] Serum creatinine measurement (mass/volume)Ordered By: Riccardo Hillman on 09-21-2024 Creatinine [Mass/Vol] 0.67 mg/dL Low 0.70-1.20 [facility] Serum globulin measurementOr dered By: Riccardo Hillman on 09-21-2024 Globulin (S) [Mass/Vol] 3.3 g/dL 2.2-4.2 [facility] Serum globulin measurement 3.3 g/dL 2.2-4.2 [facility] Serum glucose measurement (m ass/volume)Ordered By: Riccardo Hillman on 09-21-2024 Glucose [Mass/Vol] 336 mg/dL High 70-99 [facility] Serum or plasma alanine hamilton otransferase (ALT) measurementOrdered By: Riccardo Hillman on 09-21-2024 ALT [Catalytic activity/Vol] 13 U/L <35 [facility] Serum or plasma albumin xiomara urement (mass/volume)Ordered By: Riccardo Hillman on 09-21-2024 Albumin [Mass/Vol] 3.6 g/dL 3.5-5.0 [facility] Serum or plasma albumin/glob ulin mass ratioOrdered By: Riccardo Hillman on 09-21-2024 Albumin/Globulin [Mass ratio] 1.1 {ratio} 0.9-2.4 [facility] Serum or plasma alkaline sabiha sphatase measurementOrdered By: Riccardo Hillman on 09-21-2024 ALP [Catalytic activity/Vol] 128 U/L High 35-104 [facility] Serum or plasma calcium xiomara urement (mass/volume)Ordered By: Riccardo Hillman on 09-21-2024 Calcium [Mass/Vol] 9.3 mg/dL 7.6-11.0 [facility] Serum or plasma urea nitroge n measurement (mass/volume)Ordered By: Riccardo Hillman on 09-21-2024 Urea nitrogen [Mass/Vol] 9 mg/dL 4-19 [facility] Sodium levelOrdered By: Riccardo Hillman on 09-21-2024 Sodium [Moles/Vol] 132 mmol/L Low 133-145 [facility] Sodium level 132 mmol/L Low 133-145 [facility] Specific gravity (U) [Rel de nsity]Ordered By: Nina Richardson on 09-21-2024 Urine specific gravity measurement 1.010 1.002-1.03 0 [facility] Squamous epithelial cells de tection in urine sediment by light microscopyOrdered By: Nina Richardson on 09-21-2024 Epithelial cells.squamous LM Ql (Urine sed) 0-5 SEEN /hpf 5-10 [facility] Total proteinOrdered By: Guerita Hillman on 09-21-2024 Protein [Mass/Vol] 6.9 g/dL 5.9-8.4 [facility] Total protein 6.9 g/dL 5.9-8.4 [facility] Urea nitrogen [Mass/Vol]Orde red By: Riccardo Hillman on 09-21-2024 Serum or plasma urea nitrogen measurement (mass/volume) 9 mg/dL 4-19 [facility] Urinalysis, Completeon 09-21 EPI,SQUAMOUS 0-5 SEEN Normal 5-10 [facility] Comment on above: Order Comment: LUISA CTOR TO SPECIFY Performed By: #### L 400.0001 ####[facility] [address] [place], [address] RBC 0-5 SEEN Normal 0-5 [facility] Comment on above: Order Comment: LUISA CTOR TO SPECIFY Performed By: #### L 400.0001 ####[facility] [address] [place], [address] YEAST RARE Normal None Seen [facility] Comment on above: Order Comment: LUISA CTOR TO SPECIFY Performed By: #### L 400.0001 ####[facility] [address] [place], [address] BACTERIA 0 SEEN Normal None Seen [facility] Comment on above: Order Comment: LUISA CTOR TO SPECIFY Performed By: #### L 400.0001 ####[facility] [address] [place], [address] Mucus Ql (Urine sed) 0 SEEN Normal [facility] Comment on above: Order Comment: LUISA CTOR TO SPECIFY Performed By: #### L 400.0001 ####[facility] [address] [place], [address] WBC 0 SEEN Normal 0-5 [facility] Comment on above: Order Comment: LUISA CTOR TO SPECIFY Performed By: #### L 400.0001 ####[facility] [address] [place], [address] Urine blood detectionOrdered By: Nina Richardson on 09-21-2024 Urine blood detection 25 /ul High Negative [facility] Urine clarityOrdered By: Yamil Richardson on 09-21-2024 Clarity (U) Clear Clear [facility] Urine color determinationOrd ered By: Nina Richardson on 09-21-2024 Color (U) Yellow Yellow [facility] Urine glucose detectionOrder ed By: Nina Richardson on 09-21-2024 Glucose Ql (U) 1000 mg/dl High Normal [facility] Urine leukocyte esterase det ection by dipstickOrdered By: Nina Richardson on 09-21-2024 Leukocyte esterase Test strip Ql (U) Negative Negative [facility] Urine pHOrdered By: Martin Richardson on 09-21-2024 pH (U) 7.0 [pH] 5.0 - 8.0 [facility] Urine sediment bacteria coun t by microscopy (number/high power field)Ordered By: Nina Richardson on 09-21-2024 Bacteria LM.HPF (Urine sed) [#/Area] 0 /[HPF] None Seen [facility] Urine sediment yeast count b y microscopy (number/high powered field)Ordered By: Nina Richardson on 09-21-2024 Yeast LM.HPF (Urine sed) [#/Area] RARE /hpf None Seen [facility] Urine specific gravity measu rementOrdered By: Nina Richardson on 09-21-2024 Specific gravity (U) [Rel density] 1.010 1.002-1.03 0 [facility] Urine total bilirubin detect ion by test stripOrdered By: Nina Richardson on 09-21-2024 Urine total bilirubin detection by test strip Negative Negative [facility] Urine urobilinogen measureme ntOrdered By: Nina Richardson on 09-21-2024 Urobilinogen Ql (U) Normal mg/dl Normal [facility] Urobilinogen Ql (U)Ordered B y: Nina Richardson on 09-21-2024 Urine urobilinogen measurement Normal mg/dl Normal [facility] White blood cell (WBC) count Ordered By: Nina Richardson on 09-21-2024 WBC (Bld) [#/Vol] 10.5 10*3/uL 4.4-11.0 [facility] White blood cell (WBC) count 10.5 K/mm3 4.4-11.0 [facility] White blood cell countOrdere d By: Nina Richardson on 09-21-2024 White blood cell count 0 SEEN /hpf 0-5 [facility] White blood cell count 0 SEEN /hpf [facility] Yeast LM.HPF (Urine sed) [#/ Area]Ordered By: Nina Richardson on 09-21-2024 Urine sediment yeast count by microscopy (number/high powered field) RARE /hpf None Seen [facility] pH (U)Ordered By: Nina Richardson on 09-21-2024 Urine pH 7.0 5.0 - 8.0 [facility] Absolute lymphocyte countOrd ered By: Latricia Aaron on 09-16-2024 Lymphocytes Auto (Unsp spec) [#/Vol] 1.72 10*3/uL 0.83-4.51 [facility] Absolute neutrophil countOrd ered By: Latricia Aaron on 09-16-2024 Absolute neutrophil count 10.5 X10^3/uL High 2.0-7.7 [facility] Anion gap [Moles/Vol]Ordered By: Brenda Posadas on 09-16-2024 Anion gap in Serum or Plasma 10 10-16 [facility] Anion gap in Serum or Plasma Ordered By: Brenda Posadas on 09-16-2024 Anion gap [Moles/Vol] 10 mmol/L 10-16 [facility] Automated lymphocyte count a s percentage of total leukocytesOrdered By: Latricia Aaron on 09-16-2024 Lymphocytes/100 WBC Auto (Unsp spec) 13.0 % Low 19-41 [facility] BUN/creatinine ratioOrdered By: Brenda Posadas on 09-16-2024 Urea nitrogen/Creatinine [Mass ratio] 24.8 mg/mg High 10 [facility] BUN/creatinine ratio 24.8 RATIO High - [facility] Basic Metabolic Profile (BMP )on 09-16-2024 BUN/CRE 24.8 RATIO High 03-23 [facility] Comment on above: Performed By: #### L 500.2500, L100.0100 ####[facility] [address] [place], [place], [id number] Calcium [Mass/Vol] 9.3 mg/dL Normal 7.6-11.0 [facility] Comment on above: Performed By: #### L 500.2500, L100.0100 ####[facility] [address] [place], [address] Chloride [Moles/Vol] 101 mmol/L Normal 98-108 [facility] Comment on above: Performed By: #### L 500.2500, L100.0100 ####[facility] [address] [place], [address] CO2 [Moles/Vol] 27.0 mmol/L Normal 21.0-32.0 [facility] Comment on above: Performed By: #### L 500.2500, L100.0100 ####[facility] [address] [place], [address] Creatinine [Mass/Vol] 0.69 mg/dL Low 0.70-1.20 [facility] Comment on above: Performed By: #### L 500.2500, L100.0100 ####[facility] [address] [place], [address] ECRCL 104.49 ml/min Normal 50-250 [facility] Comment on above: Performed By: #### L 500.2500, L100.0100 ####[facility] [address] [place], [address] GAP 10 Normal 5-15 [facility] Comment on above: Performed By: #### L 500.2500, L100.0100 ####[facility] [address] [place], [address] GFR/1.73 sq M.predicted among non-blacks MDRD (S/P/Bld) [Vol rate/Area] 104 mL/min/{1.73_m2} Normal >60 [facility] Comment on above: Result Comment: mL/m in/1.73m2 CKD-EPI Creatinine Equation (2020) Performed By: #### L 500.2500, L100.0100 ####[facility] [address] [place], [address] Glucose [Mass/Vol] 195 mg/dL High 70-99 [facility] Comment on above: Performed By: #### L 500.2500, L100.0100 ####[facility] [address] [place], [address] Potassium [Moles/Vol] 4.1 mmol/L Normal 3.3-5.1 [facility] Comment on above: Performed By: #### L 500.2500, L100.0100 ####[facility] [address] [place], [address] Sodium [Moles/Vol] 138 mmol/L Normal 133-145 [facility] Comment on above: Performed By: #### L 500.2500, L100.0100 ####[facility] [address] [place], [address] Urea nitrogen [Mass/Vol] 17 mg/dL Normal 4-19 [facility] Comment on above: Performed By: #### L 500.2500, L100.0100 ####[facility] [address] [place], [address] Basophil percentageOrdered B y: Latricia Aaron on 09-16-2024 Basophils/100 WBC (Bld) 0.4 % 0-1 [place] Basophil percentage 0.4 % 0-1 [facility] Bedside Glucoseon 09-16-2024 FINGERSTICK GLU 204 mg/dL High 74-106 [facility] Comment on above: Result Comment: TALIA GEMENT OF PATIENT CARE PER NURSING PROTOCOL Performed By: #### L 501.080 ####[facility] [address] [place], [address] FINGERSTICK GLU 215 mg/dL High 74-106 [facility] Comment on above: Result Comment: TALIA GEMENT OF PATIENT CARE PER NURSING PROTOCOL Performed By: #### L 501.080 ####[facility] [address] [place], [address] CBC W/Diff, Automatedon 09-02-2024 Absolute Lymph 1.72 X10 3/uL Normal 0.83-4.51 [facility] Comment on above: Performed By: #### L 100.0100 ####[facility] [address] [place], [address] Absolute Neut 10.5 X10 3/uL High 2.0-7.7 [facility] Comment on above: Performed By: #### L 100.0100 ####[facility] [address] [place], [address] Basophils/100 WBC (Bld) 0.4 % Normal 0-1 [facility] Comment on above: Performed By: #### L 100.0100 ####[facility] [address] [place], [address] Eosinophils/100 WBC (Bld) 0.5 % Normal 0-5 [facility] Comment on above: Performed By: #### L 100.0100 ####[facility] [address] [place], [address] Erythrocyte distribution width (RBC) [Ratio] 13.8 % Normal 11.6-14.6 [facility] Comment on above: Performed By: #### L 100.0100 ####[facility] [address] [place], [address] Hematocrit (Bld) [Volume fraction] 35.1 % Low 37-47 [facility] Comment on above: Performed By: #### L 100.0100 ####[facility] [address] [place], [address] Hemoglobin (Bld) [Mass/Vol] 11.4 g/dL Low 12.0-15.0 [facility] Comment on above: Performed By: #### L 100.0100 ####[facility] [address] [place], [address] IG% 0.500 Normal 0.0-0.9 [facility] Comment on above: Result Comment: IG% - Immature Granulocytes (promyelocytes, myelocytes andmetamyelocytes) > 1% indicates that a LEFT SHIFT is Present. Performed By: #### L 100.0100 ####[facility] [address] [place], [address] Lymphocytes/100 WBC (Bld) 13.0 % Low 19-41 [facility] Comment on above: Performed By: #### L 100.0100 ####[facility] [address] [place], [address] MCH (RBC) [Entitic mass] 27.9 pg Normal 27.0-32.0 [facility] Comment on above: Performed By: #### L 100.0100 ####[facility] [address] [place], [address] MCHC (RBC) [Mass/Vol] 32.5 g/dL Normal 32-36 [facility] Comment on above: Performed By: #### L 100.0100 ####[facility] [address] [place], [address] MCV (RBC) [Entitic vol] 85.8 fL Normal 81-99 [facility] Comment on above: Performed By: #### L 100.0100 ####[facility] [address] [place], [address] Monocytes/100 WBC (Bld) 6.2 % Normal 0-10 [facility] Comment on above: Performed By: #### L 100.0100 ####[facility] [address] [place], [address] Neutrophils/100 WBC (Bld) 79.4 % High 47-70 [facility] Comment on above: Performed By: #### L 100.0100 ####[facility] [address] [place], [address] Nucleated RBC (Bld) [#/Vol] 0 10*3/uL Normal 0-5 [facility] Comment on above: Performed By: #### L 100.0100 ####[facility] [address] [place], [address] Platelet mean volume (Bld) [Entitic vol] 9.9 fL Normal 6.2-12.0 [facility] Comment on above: Performed By: #### L 100.0100 ####[facility] [address] [place], [address] Platelets (Bld) [#/Vol] 229 10*3/uL Normal 150-450 [facility] Comment on above: Performed By: #### L 100.0100 ####[facility] [address] [place], [address] RBC (Bld) [#/Vol] 4.09 10*6/uL Low 4.2-5.4 [facility] Comment on above: Performed By: #### L 100.0100 ####[facility] [address] [place], [address] RDW SD 43.5 fl Normal 35.1-43.9 [facility] Comment on above: Performed By: #### L 100.0100 ####[facility] [address] [place], [address] WBC (Bld) [#/Vol] 13.2 10*3/uL High 4.4-11.0 [facility] Comment on above: Performed By: #### L 100.0100 ####[facility] [address] [place], [address] Absolute Neut Normal 2.0-7.7 [facility] Comment on above: Result Comment: CLOT FREDDY, SPOKE WITH RANGLE Performed By: #### L 500.2500, L100.0100 ####[facility] [address] [place], [address] HCT Normal 37-47 [facility] Comment on above: Result Comment: CLOT FREDDY, SPOKE WITH RANGLE Performed By: #### L 500.2500, L100.0100 ####[facility] [address] [place], [address] HGB Normal 12.0-15.0 [facility] Comment on above: Result Comment: CLOT FREDDY, SPOKE WITH RANGLE Performed By: #### L 500.2500, L100.0100 ####[facility] [address] [place], [address] MCH Normal 27.0-32.0 [facility] Comment on above: Result Comment: CLOT FREDDY, SPOKE WITH RANGLE Performed By: #### L 500.2500, L100.0100 ####[facility] [address] [place], [address] MCHC Normal 32-36 [facility] Comment on above: Result Comment: CLOT FREDDY, SPOKE WITH RANGLE Performed By: #### L 500.2500, L100.0100 ####[facility] [address] [place], [address] MCV Normal 81-99 [facility] Comment on above: Result Comment: CLOT FREDDY, SPOKE WITH RANGLE Performed By: #### L 500.2500, L100.0100 ####[facility] [address] [place], [address] NEUT% Normal 47-70 [facility] Comment on above: Result Comment: CLOT FREDDY, SPOKE WITH RANGLE Performed By: #### L 500.2500, L100.0100 ####[facility] [address] [place], [address] PLT Normal 150-450 [facility] Comment on above: Result Comment: CLOT FREDDY, SPOKE WITH RANGLE Performed By: #### L 500.2500, L100.0100 ####[facility] [address] [place], [address] RBC Normal 4.2-5.4 [facility] Comment on above: Result Comment: CLOT FREDDY, SPOKE WITH RANGLE Performed By: #### L 500.2500, L100.0100 ####[facility] [address] [place], [address] RDW CV Normal 11.6-14.6 [facility] Comment on above: Result Comment: CLOT FREDDY, SPOKE WITH RANGLE Performed By: #### L 500.2500, L100.0100 ####[facility] [address] [place], [address] RDW SD Normal 35.1-43.9 [facility] Comment on above: Result Comment: CLOT FREDDY, SPOKE WITH RANGLE Performed By: #### L 500.2500, L100.0100 ####[facility] [address] [place], [address] WBC Normal 4.4-11.0 [facility] Comment on above: Result Comment: CLOT FREDDY, SPOKE WITH RANGLE Performed By: #### L 500.2500, L100.0100 ####[facility] [address] [place], [address] Calcium [Mass/Vol]Ordered By : Brenda Posadas on 09-16-2024 Serum or plasma calcium measurement (mass/volume) 9.3 mg/dL 7.6-11.0 [facility] Carbon dioxide, total [Moles /volume] in Central venous bloodOrdered By: Brenda Posadas on 09-16-2024 CO2 [Moles/Vol] 27.0 mmol/L 21.0-32.0 [facility] Carbon dioxide, total [Moles/volume] in Central venous blood 27.0 mmol/L 21.0-32.0 [facility] Chloride assayOrdered By: Martin Posadas on 09-16-2024 Chloride [Moles/Vol] 101 mmol/L 98-108 [facility] Chloride assay 101 mmol/L 98-108 [facility] Creatinine [Mass/Vol]Ordered By: Brenda Posadas on 09-16-2024 Serum creatinine measurement (mass/volume) 0.69 mg/dL Low 0.70-1.20 [facility] Eosinophil percentageOrdered By: Latricia Aaron on 09-16-2024 Eosinophils/100 WBC (Bld) 0.5 % 0-5 [facility] Eosinophil percentage 0.5 % 0-5 [facility] Erythrocyte distribution wid th (RBC) [Ratio]Ordered By: Latricia Aaron on 09-16-2024 Erythrocyte distribution width ratio 13.8 % 11.6-14.6 [facility] Erythrocyte distribution width standard deviation 43.5 fl 35.1-43.9 [facility] Erythrocyte distribution wid th ratioOrdered By: Latricia Aaron on 09-16-2024 Erythrocyte distribution width (RBC) [Ratio] 13.8 % 11.6-14.6 [facility] Erythrocyte distribution wid th standard deviationOrdered By: Latricia Aaron on 09-16-2024 Erythrocyte distribution width (RBC) [Ratio] 43.5 fl 35.1-43.9 [facility] Estimation of creatinine sylvain aranceOrdered By: Brenda Posadas on 09-16-2024 Estimation of creatinine clearance 104.49 ml/min 50-250 [facility] GFR/1.73 sq M.predicted estephanie g non-blacks MDRD (S/P/Bld) [Vol rate/Area]Ordered By: Brenda Posadas on 09-16-2024 Glomerular filtration rate (GFR) estimation/1.73 sq m using serum, plasma, or whole b 104 >60 [facility] Glomerular filtration rate ( GFR) estimation/1.73 sq m using serum, plasma, or whole bOrdered By: Brenda Posadas on 09-16-2024 GFR/1.73 sq M.predicted among non-blacks MDRD (S/P/Bld) [Vol rate/Area] 104 mL/min/{1.73_m2} >60 [facility] Glucose [Mass/Vol]Ordered By : Brenda Posadas on 09-16-2024 Serum glucose measurement (mass/volume) 195 mg/dL High 70-99 [facility] Glucose measurement at bedsi deOrdered By: Latricia Aaron on 09-16-2024 Glucose [Mass/Vol] 204 mg/dL High 74-106 [facility] Glucose measurement at bedside 204 mg/dL High 74-106 [facility] Hematocrit Auto (Bld) [Volum e fraction]Ordered By: Latricia Aaron on 09-16-2024 Hematocrit (Bld) [Volume fraction] 35.1 % Low 37-47 [facility] Automated blood hematocrit (percentage) 35.1 % Low 37-47 [facility] Hemoglobin measurementOrdere d By: Latricia Aaron on 09-16-2024 Hemoglobin (Bld) [Mass/Vol] 11.4 g/dL Low 12.0-15.0 [facility] Hemoglobin measurement 11.4 g/dL Low 12.0-15.0 [facility] Immature granulocytes/100 WB C Auto (Bld)Ordered By: Latricia Aaron on 09-16-2024 Immature granulocytes/100 WBC (Bld) 0.500 % 0.0-0.9 [facility] Automated immature granulocyte percentage 0.500 % 0.0-0.9 [facility] Lymphocytes Auto (Unsp spec) [#/Vol]Ordered By: Latricia Aaron on 09-16-2024 Absolute lymphocyte count 1.72 X10^3/uL 0.83-4.51 [facility] Lymphocytes/100 WBC Auto (Un sp spec)Ordered By: Latricia Aaron on 09-16-2024 Automated lymphocyte count as percentage of total leukocytes 13.0 % Low 19-41 [facility] MCV (RBC) [Entitic vol]Order ed By: Latricia Aaron on 09-16-2024 MCV (mean corpuscular volume) determination 85.8 fL 81-99 [facility] MCV (mean corpuscular volume ) determinationOrdered By: Latricia Aaron on 09-16-2024 MCV (RBC) [Entitic vol] 85.8 fL 81-99 [place] Mean corpuscular hemoglobin (MCH) determinationOrdered By: Latricia Aaron on 09-16-2024 MCH (RBC) [Entitic mass] 27.9 pg 27.0-32.0 [facility] Mean corpuscular hemoglobin (MCH) determination 27.9 pg 27.0-32.0 [facility] Mean corpuscular hemoglobin concentration (MCHC) determinationOrdered By: Latricia Aaron on 09-16-2024 Mean corpuscular hemoglobin concentration (MCHC) determination 32.5 g/dL 32-36 [facility] Mean platelet volume determi nationOrdered By: Latricia Aaron on 09-16-2024 Mean platelet volume determination 9.9 fl 6.2-12.0 [facility] Monocyte percentageOrdered B y: Latricia Aaron on 09-16-2024 Monocytes/100 WBC (Bld) 6.2 % 0-10 [facility] Monocyte percentage 6.2 % 0-10 [facility] Neutrophil percentageOrdered By: Latricia Aaron on 09-16-2024 Neutrophils/100 WBC (Bld) 79.4 % High 47-70 [facility] Neutrophil percentage 79.4 % High 47-70 [facility] Nucleated red blood cell per centageOrdered By: Latricia Aaron on 09-16-2024 Nucleated red blood cell percentage 0 % 0-5 [facility] Platelet countOrdered By: Tristan Aaron on 09-16-2024 Platelets (Bld) [#/Vol] 229 10*3/uL 150-450 [facility] Platelet count 229 K/mm3 150-450 [facility] Potassium (Unsp spec) [Mass/ Vol]Ordered By: Brenda Posadas on 09-16-2024 Potassium measurement (mass/volume) 4.1 mmol/L 3.3-5.1 [facility] Potassium measurement (mass/ volume)Ordered By: Brenda Posadas on 09-16-2024 Potassium (Unsp spec) [Mass/Vol] 4.1 mmol/L 3.3-5.1 [facility] RBC Auto (Bld) [#/Vol]Ordere d By: Latricia Aaron on 09-16-2024 RBC (Bld) [#/Vol] 4.09 10*6/uL Low 4.2-5.4 [facility] Automated blood erythrocyte count 4.09 M/mm3 Low 4.2-5.4 [facility] Serum creatinine measurement (mass/volume)Ordered By: Brenda Posadas on 09-16-2024 Creatinine [Mass/Vol] 0.69 mg/dL Low 0.70-1.20 [facility] Serum glucose measurement (m ass/volume)Ordered By: Brenda Posadas on 09-16-2024 Glucose [Mass/Vol] 195 mg/dL High 70-99 [facility] Serum or plasma calcium xiomara urement (mass/volume)Ordered By: Brenda Posadas on 09-16-2024 Calcium [Mass/Vol] 9.3 mg/dL 7.6-11.0 [facility] Serum or plasma urea nitroge n measurement (mass/volume)Ordered By: Brenda Posadas on 09-16-2024 Urea nitrogen [Mass/Vol] 17 mg/dL 09-20 [facility] Sodium levelOrdered By: Gavi Posadas on 09-16-2024 Sodium [Moles/Vol] 138 mmol/L 133-145 [facility] Sodium level 138 mmol/L 133-145 [facility] Urea nitrogen [Mass/Vol]Orde red By: Brenda Posadas on 09-16-2024 Serum or plasma urea nitrogen measurement (mass/volume) 17 mg/dL 09-20 [facility] White blood cell (WBC) count Ordered By: Latricia Aaron on 09-16-2024 WBC (Bld) [#/Vol] 13.2 10*3/uL High 4.4-11.0 [facility] White blood cell (WBC) count 13.2 K/mm3 High 4.4-11.0 [facility] Basic Metabolic Profile (BMP )on 09-15-2024 BUN/CRE 19.5 RATIO Normal 10-20 [facility] Comment on above: Performed By: #### L 500.2500, L100.0100 ####[facility] [address] [place], [place], [address] Calcium [Mass/Vol] 9.1 mg/dL Normal 7.6-11.0 [facility] Comment on above: Performed By: #### L 500.2500, L100.0100 ####[facility] [address] [place], [address] Chloride [Moles/Vol] 100 mmol/L Normal 98-108 [facility] Comment on above: Performed By: #### L 500.2500, L100.0100 ####[facility] [address] [place], [address] CO2 [Moles/Vol] 27.6 mmol/L Normal 21.0-32.0 [facility] Comment on above: Performed By: #### L 500.2500, L100.0100 ####[facility] [address] [place], [address] Creatinine [Mass/Vol] 0.79 mg/dL Normal 0.70-1.20 [facility] Comment on above: Performed By: #### L 500.2500, L100.0100 ####[facility] [address] [place], [address] ECRCL 93.04 ml/min Normal 50-250 [facility] Comment on above: Performed By: #### L 500.2500, L100.0100 ####[facility] [address] [place], [address] GAP 8 Normal 5-15 [facility] Comment on above: Performed By: #### L 500.2500, L100.0100 ####[facility] [address] [place], [address] GFR/1.73 sq M.predicted among non-blacks MDRD (S/P/Bld) [Vol rate/Area] 89 mL/min/{1.73_m2} Normal >60 [facility] Comment on above: Result Comment: mL/m in/1.73m2 CKD-EPI Creatinine Equation (2020) Performed By: #### L 500.2500, L100.0100 ####[facility] [address] [place], [address] Glucose [Mass/Vol] 172 mg/dL High 70-99 [facility] Comment on above: Performed By: #### L 500.2500, L100.0100 ####[facility] [address] [place], [address] Potassium [Moles/Vol] 3.9 mmol/L Normal 3.3-5.1 [facility] Comment on above: Performed By: #### L 500.2500, L100.0100 ####[facility] [address] [place], [address] Sodium [Moles/Vol] 136 mmol/L Normal 133-145 [facility] Comment on above: Performed By: #### L 500.2500, L100.0100 ####[facility] [address] [place], [address] Urea nitrogen [Mass/Vol] 15 mg/dL Normal 4-19 [facility] Comment on above: Performed By: #### L 500.2500, L100.0100 ####[facility] [address] [place], [address] Bedside Glucoseon 09-15-2024 FINGERSTICK GLU 278 mg/dL High 74-106 [facility] Comment on above: Result Comment: TALIA GEMENT OF PATIENT CARE PER NURSING PROTOCOL Performed By: #### L 501.080 ####[facility] [address] [place], [address] FINGERSTICK GLU 218 mg/dL High 74-106 [facility] Comment on above: Result Comment: TALIA GEMENT OF PATIENT CARE PER NURSING PROTOCOL Performed By: #### L 501.080 ####[facility] [address] [place], [address] FINGERSTICK GLU 234 mg/dL High 74-106 [facility] Comment on above: Result Comment: TALIA GEMENT OF PATIENT CARE PER NURSING PROTOCOL Performed By: #### L 501.080 ####[facility] [address] [place], [address] FINGERSTICK GLU 188 mg/dL High 74-106 [facility] Comment on above: Result Comment: TALIA CHAMBERS OF PATIENT CARE PER NURSING PROTOCOL Performed By: #### L 501.080 ####[facility] [address] [place], [address] CBC W/Diff, Automatedon 09-02 Absolute Lymph 1.34 X10 3/uL Normal 0.83-4.51 [facility] Comment on above: Performed By: #### L 500.2500, L100.0100 ####[facility] [address] [place], [address] Absolute Neut 6.8 X10 3/uL Normal 2.0-7.7 [facility] Comment on above: Performed By: #### L 500.2500, L100.0100 ####[facility] [address] [place], [address] Basophils/100 WBC (Bld) 0.7 % Normal 0-1 [facility] Comment on above: Performed By: #### L 500.2500, L100.0100 ####[facility] [address] [place], [address] Eosinophils/100 WBC (Bld) 1.2 % Normal 0-5 [facility] Comment on above: Performed By: #### L 500.2500, L100.0100 ####[facility] [address] [place], [address] Erythrocyte distribution width (RBC) [Ratio] 14.0 % Normal 11.6-14.6 [facility] Comment on above: Performed By: #### L 500.2500, L100.0100 ####[facility] [address] [place], [address] Hematocrit (Bld) [Volume fraction] 32.2 % Low 37-47 [facility] Comment on above: Performed By: #### L 500.2500, L100.0100 ####[facility] [address] [place], [address] Hemoglobin (Bld) [Mass/Vol] 10.3 g/dL Low 12.0-15.0 [facility] Comment on above: Performed By: #### L 500.2500, L100.0100 ####[facility] [address] [place], [address] IG% 0.400 Normal 0.0-0.9 [facility] Comment on above: Result Comment: IG% - Immature Granulocytes (promyelocytes, myelocytes andmetamyelocytes) > 1% indicates that a LEFT SHIFT is Present. Performed By: #### L 500.2500, L100.0100 ####[facility] [address] [place], [address] Lymphocytes/100 WBC (Bld) 14.8 % Low 19-41 [facility] Comment on above: Performed By: #### L 500.2500, L100.0100 ####[facility] [address] [place], [address] MCH (RBC) [Entitic mass] 27.5 pg Normal 27.0-32.0 [facility] Comment on above: Performed By: #### L 500.2500, L100.0100 ####[facility] [address] [place], [address] MCHC (RBC) [Mass/Vol] 32.0 g/dL Normal 32-36 [facility] Comment on above: Performed By: #### L 500.2500, L100.0100 ####[facility] [address] [place], [address] MCV (RBC) [Entitic vol] 86.1 fL Normal 81-99 [facility] Comment on above: Performed By: #### L 500.2500, L100.0100 ####[facility] [address] [place], [address] Monocytes/100 WBC (Bld) 8.1 % Normal 0-10 [facility] Comment on above: Performed By: #### L 500.2500, L100.0100 ####[facility] [address] [place], [address] Neutrophils/100 WBC (Bld) 74.8 % High 47-70 [facility] Comment on above: Performed By: #### L 500.2500, L100.0100 ####[facility] [address] [place], [address] Nucleated RBC (Bld) [#/Vol] 0 10*3/uL Normal 0-5 [facility] Comment on above: Performed By: #### L 500.2500, L100.0100 ####[facility] [address] [place], [address] Platelet mean volume (Bld) [Entitic vol] 10.0 fL Normal 6.2-12.0 [facility] Comment on above: Performed By: #### L 500.2500, L100.0100 ####[facility] [address] [place], [address] Platelets (Bld) [#/Vol] 211 10*3/uL Normal 150-450 [facility] Comment on above: Performed By: #### L 500.2500, L100.0100 ####[facility] [address] [place], [address] RBC (Bld) [#/Vol] 3.74 10*6/uL Low 4.2-5.4 [facility] Comment on above: Performed By: #### L 500.2500, L100.0100 ####[facility] [address] [place], [address] RDW SD 43.8 fl Normal 35.1-43.9 [facility] Comment on above: Performed By: #### L 500.2500, L100.0100 ####[facility] [address] [place], [address] WBC (Bld) [#/Vol] 9.0 10*3/uL Normal 4.4-11.0 [facility] Comment on above: Performed By: #### L 500.2500, L100.0100 ####[facility] [address] [place], [address] Consultation - Urologyon Consultation - Urology Normal [facility] Urine Cultureon 09-15-2024 URC Below infection leve l. Yeast, not Ashley albicans [place] Count 1000-10,000 Normal [facility] Comment on above: Performed By: #### L 400.0001, M100.2200 ####[facility] [address] [place], [address] Basic Metabolic Profile (BMP )on 09-14-2024 BUN/CRE 25.9 RATIO High 10-20 [facility] Comment on above: Performed By: #### L 500.2500, L100.0100 ####[facility] [address] [place], [address] Calcium [Mass/Vol] 9.0 mg/dL Normal 7.6-11.0 [facility] Comment on above: Performed By: #### L 500.2500, L100.0100 ####[facility] [address] [place], [address] Chloride [Moles/Vol] 103 mmol/L Normal 98-108 [facility] Comment on above: Performed By: #### L 500.2500, L100.0100 ####[facility] [address] [place], [address] CO2 [Moles/Vol] 20.0 mmol/L Low 21.0-32.0 [facility] Comment on above: Performed By: #### L 500.2500, L100.0100 ####[facility] [address] [place], [address] Creatinine [Mass/Vol] 0.81 mg/dL Normal 0.70-1.20 [facility] Comment on above: Performed By: #### L 500.2500, L100.0100 ####[facility] [address] [place], [address] ECRCL 90.18 ml/min Normal 50-250 [facility] Comment on above: Performed By: #### L 500.2500, L100.0100 ####[facility] [address] [place], [address] GAP 11 Normal 5-15 [facility] Comment on above: Performed By: #### L 500.2500, L100.0100 ####[facility] [address] [place], [address] GFR/1.73 sq M.predicted among non-blacks MDRD (S/P/Bld) [Vol rate/Area] 87 mL/min/{1.73_m2} Normal >60 [facility] Comment on above: Result Comment: mL/m in/1.73m2 CKD-EPI Creatinine Equation (2020) Performed By: #### L 500.2500, L100.0100 ####[facility] [address] [place], [address] Glucose [Mass/Vol] 181 mg/dL High 70-99 [facility] Comment on above: Performed By: #### L 500.2500, L100.0100 ####[facility] [address] [place], [address] Potassium [Moles/Vol] 4.6 mmol/L Normal 3.3-5.1 [facility] Comment on above: Result Comment: Hemo lysis present, Results??could be affected.?? Performed By: #### L 500.2500, L100.0100 ####[facility] [address] [place], [address] Sodium [Moles/Vol] 134 mmol/L Normal 133-145 [facility] Comment on above: Performed By: #### L 500.2500, L100.0100 ####[facility] [address] [place], [address] Urea nitrogen [Mass/Vol] 21 mg/dL High 4-19 [facility] Comment on above: Performed By: #### L 500.2500, L100.0100 ####[facility] [address] [place], [address] Bedside Glucoseon 09-14-2024 FINGERSTICK GLU 188 mg/dL High 74-106 [facility] Comment on above: Result Comment: TALIA GEMENT OF PATIENT CARE PER NURSING PROTOCOL Performed By: #### L 501.080 ####[facility] [address] [place], [address] FINGERSTICK GLU 248 mg/dL High 74-106 [facility] Comment on above: Result Comment: TALIA GEMENT OF PATIENT CARE PER NURSING PROTOCOL Performed By: #### L 501.080 ####[facility] [address] [place], [address] FINGERSTICK GLU 288 mg/dL High 74-106 [facility] Comment on above: Result Comment: TALIA GEMENT OF PATIENT CARE PER NURSING PROTOCOL Performed By: #### L 501.080 ####[facility] [address] [place], [address] FINGERSTICK GLU 172 mg/dL High 74-106 [facility] Comment on above: Result Comment: TALIA GEMENT OF PATIENT CARE PER NURSING PROTOCOL Performed By: #### L 501.080 ####[facility] [address] [place], [address] CBC W/Diff, Automatedon 09-02 Platelets (Bld) [#/Vol] 129 10*3/uL Low 150-450 [facility] Comment on above: Performed By: #### L 500.2500, L100.0100 ####[facility] [address] [place], [address] Culture, Blood (WB)on 2024 CUB LHAND Blood cultures x2, from two different sites No growth in 5 days. Normal [facility] Comment on above: Performed By: #### M 200.1000 ####[facility] [address] [place], [address] Basic Metabolic Profile (BMP )on 09-13-2024 BUN/CRE 17.6 RATIO Normal 10-20 [facility] Comment on above: Performed By: #### L 500.2500, L100.0100 ####[facility] [address] [place], [address] Calcium [Mass/Vol] 9.1 mg/dL Normal 7.6-11.0 [facility] Comment on above: Performed By: #### L 500.2500, L100.0100 ####[facility] [address] [place], [address] Chloride [Moles/Vol] 104 mmol/L Normal 98-108 [facility] Comment on above: Performed By: #### L 500.2500, L100.0100 ####[facility] [address] [place], [address] CO2 [Moles/Vol] 21.1 mmol/L Normal 21.0-32.0 [facility] Comment on above: Performed By: #### L 500.2500, L100.0100 ####[facility] [address] [place], [address] Creatinine [Mass/Vol] 1.02 mg/dL Normal 0.70-1.20 [facility] Comment on above: Performed By: #### L 500.2500, L100.0100 ####[facility] [address] [place], [address] ECRCL 71.49 ml/min Normal 50-250 [facility] Comment on above: Performed By: #### L 500.2500, L100.0100 ####[facility] [address] [place], [address] GAP 11 Normal 5-15 [facility] Comment on above: Performed By: #### L 500.2500, L100.0100 ####[facility] [address] [place], [address] GFR/1.73 sq M.predicted among non-blacks MDRD (S/P/Bld) [Vol rate/Area] 66 mL/min/{1.73_m2} Normal >60 [facility] Comment on above: Result Comment: mL/m in/1.73m2 CKD-EPI Creatinine Equation (2020) Performed By: #### L 500.2500, L100.0100 ####[facility] [address] [place], [address] Glucose [Mass/Vol] 223 mg/dL High 70-99 [facility] Comment on above: Performed By: #### L 500.2500, L100.0100 ####[facility] [address] [place], [address] Potassium [Moles/Vol] 4.2 mmol/L Normal 3.3-5.1 [facility] Comment on above: Performed By: #### L 500.2500, L100.0100 ####[facility] [address] [place], [address] Sodium [Moles/Vol] 136 mmol/L Normal 133-145 [facility] Comment on above: Performed By: #### L 500.2500, L100.0100 ####[facility] [address] [place], [address] Urea nitrogen [Mass/Vol] 18 mg/dL Normal 4-19 [facility] Comment on above: Performed By: #### L 500.2500, L100.0100 ####[facility] [address] [place], [address] Bedside Glucoseon 09-13-2024 FINGERSTICK GLU 207 mg/dL High 74-106 [facility] Comment on above: Result Comment: TALIA GEMENT OF PATIENT CARE PER NURSING PROTOCOL Performed By: #### L 501.080 ####[facility] [address] [place], [address] FINGERSTICK GLU 249 mg/dL High 74-106 [facility] Comment on above: Result Comment: TALIA GEMENT OF PATIENT CARE PER NURSING PROTOCOL Performed By: #### L 501.080 ####[facility] [address] [place], [address] FINGERSTICK GLU 181 mg/dL High -106 [facility] Comment on above: Result Comment: TALIA GEMENT OF PATIENT CARE PER NURSING PROTOCOL Performed By: #### L 501.080 ####[facility] [address] [place], [address] FINGERSTICK GLU 214 mg/dL High 74-106 [facility] Comment on above: Result Comment: TALIA GEMENT OF PATIENT CARE PER NURSING PROTOCOL Performed By: #### L 501.080 ####[facility] [address] [place], [address] CBC W/Diff, Automatedon 09-02 Absolute Lymph 1.69 X10 3/uL Normal 0.83-4.51 [facility] Comment on above: Performed By: #### L 500.2500, L100.0100 ####[facility] [address] [place], [address] Absolute Neut 8.9 X10 3/uL High 2.0-7.7 [facility] Comment on above: Performed By: #### L 500.2500, L100.0100 ####[facility] [address] [place], [address] Basophils/100 WBC (Bld) 0.9 % Normal 0-1 [facility] Comment on above: Performed By: #### L 500.2500, L100.0100 ####[facility] [address] [place], [address] Eosinophils/100 WBC (Bld) 1.6 % Normal 0-5 [facility] Comment on above: Performed By: #### L 500.2500, L100.0100 ####[facility] [address] [place], [address] Erythrocyte distribution width (RBC) [Ratio] 14.0 % Normal 11.6-14.6 [facility] Comment on above: Performed By: #### L 500.2500, L100.0100 ####[facility] [address] [place], [address] Hematocrit (Bld) [Volume fraction] 35.1 % Low 37-47 [facility] Comment on above: Performed By: #### L 500.2500, L100.0100 ####[facility] [address] [place], [address] Hemoglobin (Bld) [Mass/Vol] 11.3 g/dL Low 12.0-15.0 [facility] Comment on above: Performed By: #### L 500.2500, L100.0100 ####[facility] [address] [place], [address] IG% 0.600 Normal 0.0-0.9 [facility] Comment on above: Result Comment: IG% - Immature Granulocytes (promyelocytes, myelocytes andmetamyelocytes) > 1% indicates that a LEFT SHIFT is Present. Performed By: #### L 500.2500, L100.0100 ####[facility] [address] [place], [address] Lymphocytes/100 WBC (Bld) 14.4 % Low 19-41 [facility] Comment on above: Performed By: #### L 500.2500, L100.0100 ####[facility] [address] [place], [address] MCH (RBC) [Entitic mass] 28.2 pg Normal 27.0-32.0 [facility] Comment on above: Performed By: #### L 500.2500, L100.0100 ####[facility] [address] [place], [address] MCHC (RBC) [Mass/Vol] 32.2 g/dL Normal 32-36 [facility] Comment on above: Performed By: #### L 500.2500, L100.0100 ####[facility] [address] [place], [address] MCV (RBC) [Entitic vol] 87.5 fL Normal 81-99 [place] Comment on above: Performed By: #### L 500.2500, L100.0100 ####[facility] [address] [place], [address] Monocytes/100 WBC (Bld) 6.9 % Normal 0-10 [place] Comment on above: Performed By: #### L 500.2500, L100.0100 ####[facility] [address] [place], [address] Neutrophils/100 WBC (Bld) 75.6 % High 47-70 [facility] Comment on above: Performed By: #### L 500.2500, L100.0100 ####[facility] [address] [place], [address] Nucleated RBC (Bld) [#/Vol] 0 10*3/uL Normal 0-5 [facility] Comment on above: Performed By: #### L 500.2500, L100.0100 ####[facility] [address] [place], [address] Platelet mean volume (Bld) [Entitic vol] 10.1 fL Normal 6.2-12.0 [facility] Comment on above: Performed By: #### L 500.2500, L100.0100 ####[facility] [address] [place], [address] Platelets (Bld) [#/Vol] 232 10*3/uL Normal 150-450 [facility] Comment on above: Performed By: #### L 500.2500, L100.0100 ####[facility] [address] [place], [address] RBC (Bld) [#/Vol] 4.01 10*6/uL Low 4.2-5.4 [facility] Comment on above: Performed By: #### L 500.2500, L100.0100 ####[facility] [address] [place], [address] RDW SD 44.9 fl High 35.1-43.9 [facility] Comment on above: Performed By: #### L 500.2500, L100.0100 ####[facility] [address] [place], [address] WBC (Bld) [#/Vol] 11.7 10*3/uL High 4.4-11.0 [facility] Comment on above: Performed By: #### L 500.2500, L100.0100 ####[facility] [address] [place], [address] Basic Metabolic Profile (BMP )on 09-12-2024 BUN/CRE 24.0 RATIO High 10-20 [facility] Comment on above: Performed By: #### L 100.0100, L500.2500 ####[facility] [address] [place], [address] Calcium [Mass/Vol] 9.0 mg/dL Normal 7.6-11.0 [facility] Comment on above: Performed By: #### L 100.0100, L500.2500 ####[facility] [address] [place], [address] Chloride [Moles/Vol] 105 mmol/L Normal 98-108 [facility] Comment on above: Performed By: #### L 100.0100, L500.2500 ####[facility] [address] [place], [address] CO2 [Moles/Vol] 17.3 mmol/L Low 21.0-32.0 [facility] Comment on above: Performed By: #### L 100.0100, L500.2500 ####[facility] [address] [place], [address] Creatinine [Mass/Vol] 0.86 mg/dL Normal 0.70-1.20 [facility] Comment on above: Performed By: #### L 100.0100, L500.2500 ####[facility] [address] [place], [address] ECRCL 84.22 ml/min Normal 50-250 [facility] Comment on above: Performed By: #### L 100.0100, L500.2500 ####[facility] [address] [place], [address] GAP 11 Normal 5-15 [facility] Comment on above: Performed By: #### L 100.0100, L500.2500 ####[facility] [address] [place], [address] GFR/1.73 sq M.predicted among non-blacks MDRD (S/P/Bld) [Vol rate/Area] 81 mL/min/{1.73_m2} Normal >60 [facility] Comment on above: Result Comment: mL/m in/1.73m2 CKD-EPI Creatinine Equation (2020) Performed By: #### L 100.0100, L500.2500 ####[facility] [address] [place], [address] Glucose [Mass/Vol] 213 mg/dL High 70-99 [facility] Comment on above: Performed By: #### L 100.0100, L500.2500 ####[facility] [address] [place], [address] Potassium [Moles/Vol] 4.7 mmol/L Normal 3.3-5.1 [facility] Comment on above: Result Comment: Hemo lysis present, Results??could be affected.?? Performed By: #### L 100.0100, L500.2500 ####[facility] [address] [place], [address] Sodium [Moles/Vol] 134 mmol/L Normal 133-145 [facility] Comment on above: Performed By: #### L 100.0100, L500.2500 ####[facility] [address] [place], [address] Urea nitrogen [Mass/Vol] 21 mg/dL High 4-19 [facility] Comment on above: Performed By: #### L 100.0100, L500.2500 ####[facility] [address] [place], [address] Bedside Glucoseon 09-12-2024 FINGERSTICK GLU 271 mg/dL High 74-106 [facility] Comment on above: Result Comment: TALIA CHAMBERS OF PATIENT CARE PER NURSING PROTOCOL Performed By: #### L 501.080 ####[facility] [address] [place], [address] FINGERSTICK GLU 352 mg/dL High 74-106 [facility] Comment on above: Result Comment: TALIA GEMENT OF PATIENT CARE PER NURSING PROTOCOL Performed By: #### L 501.080 ####[facility] [address] [place], [address] FINGERSTICK GLU 195 mg/dL High [address] [facility] Comment on above: Result Comment: TALIA GEMENT OF PATIENT CARE PER NURSING PROTOCOL Performed By: #### L 501.080 ####[facility] [address] [place], [address] FINGERSTICK GLU 210 mg/dL High -106 [facility] Comment on above: Result Comment: TALIA GEMENT OF PATIENT CARE PER NURSING PROTOCOL Performed By: #### L 501.080 ####[facility] [address] [place], [address] FINGERSTICK GLU 331 mg/dL High [address] [place] [address] Comment on above: Result Comment: TALIA GEMENT OF PATIENT CARE PER NURSING PROTOCOL Performed By: #### L 501.080 ####[facility] [address] [place], [address] Bilirubin Test strip Ql (U)O rdered By: Nichelle Mcneil on 09-12-2024 Bilirubin Ql (U) Negative Negative [facility] CBC W/Diff, Automatedon 09-02 PLT EST ADEQUATE Normal ADEQ [facility] Comment on above: Performed By: #### L 100.0100, L500.2500 ####[facility] [address] [place], [address] CNCOon 09-12-2024 CNCO Letter Text Normal [facility] Clarity (U)Ordered By: Juan Mcneil on 09-12-2024 Urine clarity Clear Clear [facility] Color (U)Ordered By: Nichelle Mcneil on 09-12-2024 Urine color determination Straw Yellow [facility] Consultation - Infectious Dx on 09-12-2024 Consultation - Infectious Dx Normal [facility] Epithelial cells.squamous LM Ql (Urine sed)Ordered By: Nichelle Mcneil on 09-12-2024 Squamous epithelial cells detection in urine sediment by light microscopy 0-5 SEEN /hpf 5- [facility] Glucose Ql (U)Ordered By: Olamide Mcneil on 09-12-2024 Urine glucose detection 1000 mg/dl High Normal [facility] Ketones Test strip Ql (U)Ord ered By: Nichelle Mcneil on 09-12-2024 Ketones Ql (U) Negative Negative [facility] Mucus LM Ql (Urine sed)Order ed By: Nichelle Mcneil on 09-12-2024 Mucus Ql (Urine sed) 0 SEEN /hpf [facility] Nitrite Test strip Ql (U)Ord ered By: Nichelle Mcneil on 09-12-2024 Nitrite Ql (U) Negative Negative [facility] Platelet estimateOrdered By: Brenda Posadas on 09-12-2024 Platelets LM Ql (Bld) ADEQUATE ADEQ [facility] Platelets LM Ql (Bld)Ordered By: Brenda Posadas on 09-12-2024 Platelet [facility] Protein Test strip Ql (U)Ord ered By: Nichelle Mcneil on 09-12-2024 Protein Ql (U) 15 mg/dl High Negative [facility] Urine protein assay by test strip, semi-quantitative 15 mg/dl High Negative [facility] Specific gravity (U) [Rel de nsity]Ordered By: Nichelle Mcneil on 09-12-2024 Urine specific gravity measurement 1.010 1.002-1.03 0 [facility] Squamous epithelial cells de tection in urine sediment by light microscopyOrdered By: Nichelle Mcneil on 09-12-2024 Epithelial cells.squamous LM Ql (Urine sed) 0-5 SEEN /hpf 5-10 [facility] Urinalysis, Completeon 09-12 EPI,SQUAMOUS 0-5 SEEN Normal - [facility] Comment on above: Order Comment: CLEAN CATCH Performed By: #### L 400.0001, M100.2200 ####[facility] [address] [place], [address] YEAST 1+ /hpf Normal None Seen [facility] Comment on above: Order Comment: CLEAN CATCH Performed By: #### L 400.0001, M100.2200 ####[facility] [address] [place], [address] BACTERIA 0 SEEN Normal None Seen [facility] Comment on above: Order Comment: CLEAN CATCH Performed By: #### L 400.0001, M100.2200 ####[facility] [address] [place], [address] Mucus Ql (Urine sed) 0 SEEN Normal [facility] Comment on above: Order Comment: CLEAN CATCH Performed By: #### L 400.0001, M100.2200 ####[facility] [address] [place], [address] RBC 0 SEEN Normal 0-5 [facility] Comment on above: Order Comment: CLEAN CATCH Performed By: #### L 400.0001, M100.0 ####[facility] [address] [place], [address] WBC 0 SEEN Normal 0-5 [facility] Comment on above: Order Comment: CLEAN CATCH Performed By: #### L 400.0001, M100.2200 ####[facility] [address] [place], [address] Urine clarityOrdered By: Travis Mcneil on 09-12-2024 Clarity (U) Clear Clear [facility] Urine color determinationOrd ered By: Nichelle Mcneil on 09-12-2024 Color (U) Straw Yellow [facility] Urine cultureOrdered By: Travis Mcneil on 09-12-2024 Bacteria identified Cx Nom (U) Yeast, not Ashley albicans Abnormal [facility] Urine culture Yeast, not Ashley albicans Abnormal [facility] Urine glucose detectionOrder ed By: Nichelle Mcneil on 09-12-2024 Glucose Ql (U) 1000 mg/dl High Normal [facility] Urine leukocyte esterase det ection by dipstickOrdered By: Nichelle Mcneil on 09-12-2024 Leukocyte esterase Test strip Ql (U) Negative Negative [facility] Urine pHOrdered By: Nichelle pacheco on 09-12-2024 pH (U) 6.0 [pH] 5.0 - 8.0 [facility] Urine sediment bacteria coun t by microscopy (number/high power field)Ordered By: Nichelle Mcneil on 09-12-2024 Bacteria LM.HPF (Urine sed) [#/Area] 0 /[HPF] None Seen [facility] Urine sediment yeast count b y microscopy (number/high powered field)Ordered By: Nichelle Mcneil on 09-12-2024 Yeast LM.HPF (Urine sed) [#/Area] 1 /[HPF] None Seen [facility] Urine specific gravity measu rementOrdered By: Nichelle Mcneil on 09-12-2024 Specific gravity (U) [Rel density] 1.010 1.002-1.03 0 [facility] Urine total bilirubin detect ion by test stripOrdered By: Nichelle Mcneil on 09-12-2024 Urine total bilirubin detection by test strip Negative Negative [facility] Urine urobilinogen measureme ntOrdered By: Nichelle Mcneil on 09-12-2024 Urobilinogen Ql (U) Normal mg/dl Normal [facility] Urobilinogen Ql (U)Ordered B y: Nichelle Mcneil on 09-12-2024 Urine urobilinogen measurement Normal mg/dl Normal [facility] White blood cell countOrdere d By: Nichelle Mcneil on 09-12-2024 White blood cell count 0 SEEN /hpf 0-5 [facility] White blood cell count 0 SEEN /hpf [facility] Yeast LM.HPF (Urine sed) [#/ Area]Ordered By: Nichelle Mcneil on 09-12-2024 Urine sediment yeast count by microscopy (number/high powered field) 1+ /hpf None Seen [facility] pH (U)Ordered By: Nichelle butler on 09-12-2024 Urine pH 6.0 5.0 - 8.0 [facility] Abdomen Single View (Portabl e)on 09-11-2024 Abdomen Single View (Portable) Normal [facility] Basic Metabolic Profile (BMP )on 09-11-2024 BUN/CRE 21.7 RATIO High 10-20 [facility] Comment on above: Performed By: #### L 500.2500, L100.0100 ####[facility] [address] [place], [address] Calcium [Mass/Vol] 9.0 mg/dL Normal 7.6-11.0 [facility] Comment on above: Performed By: #### L 500.2500, L100.0100 ####[facility] [address] [place], [address] Chloride [Moles/Vol] 104 mmol/L Normal 98-108 [facility] Comment on above: Performed By: #### L 500.2500, L100.0100 ####[facility] [address] [place], [address] CO2 [Moles/Vol] 21.7 mmol/L Normal 21.0-32.0 [facility] Comment on above: Performed By: #### L 500.2500, L100.0100 ####[facility] [address] [place], [address] Creatinine [Mass/Vol] 0.84 mg/dL Normal 0.70-1.20 [facility] Comment on above: Performed By: #### L 500.2500, L100.0100 ####[facility] [address] [place], [address] ECRCL 85.20 ml/min Normal 50-250 [facility] Comment on above: Performed By: #### L 500.2500, L100.0100 ####[facility] [address] [place], [address] GAP 11 Normal 5-15 [facility] Comment on above: Performed By: #### L 500.2500, L100.0100 ####[facility] [address] [place], [address] GFR/1.73 sq M.predicted among non-blacks MDRD (S/P/Bld) [Vol rate/Area] 84 mL/min/{1.73_m2} Normal >60 [facility] Comment on above: Result Comment: mL/m in/1.73m2 CKD-EPI Creatinine Equation (2020) Performed By: #### L 500.2500, L100.0100 ####[facility] [address] [place], [address] Glucose [Mass/Vol] 171 mg/dL High 70-99 [facility] Comment on above: Performed By: #### L 500.2500, L100.0100 ####[facility] [address] [place], [address] Potassium [Moles/Vol] 4.0 mmol/L Normal 3.3-5.1 [facility] Comment on above: Performed By: #### L 500.2500, L100.0100 ####[facility] [address] [place], [address] Sodium [Moles/Vol] 136 mmol/L Normal 133-145 [facility] Comment on above: Performed By: #### L 500.2500, L100.0100 ####[facility] [address] [place], [address] Urea nitrogen [Mass/Vol] 18 mg/dL Normal 4-19 [facility] Comment on above: Performed By: #### L 500.2500, L100.0100 ####[facility] [address] [place], [address] Bedside Glucoseon 09-11-2024 FINGERSTICK GLU 114 mg/dL High 74-106 [facility] Comment on above: Result Comment: TALIA CHAMBERS OF PATIENT CARE PER NURSING PROTOCOL Performed By: #### L 501.080 ####[facility] [address] [place], [address] FINGERSTICK GLU 338 mg/dL High 74-106 [facility] Comment on above: Result Comment: TALIA GEMENT OF PATIENT CARE PER NURSING PROTOCOL Performed By: #### L 501.080 ####[facility] [address] [place], [address] FINGERSTICK GLU 142 mg/dL High 74-106 [facility] Comment on above: Result Comment: TALIA GEMENT OF PATIENT CARE PER NURSING PROTOCOL Performed By: #### L 501.080 ####[facility] [address] [place], [address] CBC W/Diff, Automatedon 09-02 0-2024 Absolute Lymph 2.26 X10 3/uL Normal 0.83-4.51 [facility] Comment on above: Performed By: #### L 500.2500, L100.0100 ####[facility] [address] [place], [address] Absolute Neut 6.8 X10 3/uL Normal 2.0-7.7 [facility] Comment on above: Performed By: #### L 500.2500, L100.0100 ####[facility] [address] [place], [address] Basophils/100 WBC (Bld) 0.6 % Normal 0-1 [facility] Comment on above: Performed By: #### L 500.2500, L100.0100 ####[facility] [address] [place], [address] Eosinophils/100 WBC (Bld) 1.9 % Normal 0-5 [facility] Comment on above: Performed By: #### L 500.2500, L100.0100 ####[facility] [address] [place], [address] Erythrocyte distribution width (RBC) [Ratio] 14.0 % Normal 11.6-14.6 [facility] Comment on above: Performed By: #### L 500.2500, L100.0100 ####[facility] [address] [place], [address] Hematocrit (Bld) [Volume fraction] 33.1 % Low 37-47 [facility] Comment on above: Performed By: #### L 500.2500, L100.0100 ####[facility] [address] [place], [address] Hemoglobin (Bld) [Mass/Vol] 11.0 g/dL Low 12.0-15.0 [facility] Comment on above: Performed By: #### L 500.2500, L100.0100 ####[facility] [address] [place], [address] IG% 0.600 Normal 0.0-0.9 [facility] Comment on above: Result Comment: IG% - Immature Granulocytes (promyelocytes, myelocytes andmetamyelocytes) > 1% indicates that a LEFT SHIFT is Present. Performed By: #### L 500.2500, L100.0100 ####[facility] [address] [place], [address] Lymphocytes/100 WBC (Bld) 22.6 % Normal 19-41 [facility] Comment on above: Performed By: #### L 500.2500, L100.0100 ####[facility] [address] [place], [address] MCH (RBC) [Entitic mass] 28.1 pg Normal 27.0-32.0 [facility] Comment on above: Performed By: #### L 500.2500, L100.0100 ####[facility] [address] [place], [address] MCHC (RBC) [Mass/Vol] 33.2 g/dL Normal 32-36 [facility] Comment on above: Performed By: #### L 500.2500, L100.0100 ####[facility] [address] [place], [address] MCV (RBC) [Entitic vol] 84.4 fL Normal 81-99 [facility] Comment on above: Performed By: #### L 500.2500, L100.0100 ####[facility] [address] [place], [address] Monocytes/100 WBC (Bld) 6.3 % Normal 0-10 [place] Comment on above: Performed By: #### L 500.2500, L100.0100 ####[facility] [address] [place], [address] Neutrophils/100 WBC (Bld) 68.0 % Normal 47-70 [facility] Comment on above: Performed By: #### L 500.2500, L100.0100 ####[facility] [address] [place], [address] Nucleated RBC (Bld) [#/Vol] 0 10*3/uL Normal 0-5 [facility] Comment on above: Performed By: #### L 500.2500, L100.0100 ####[facility] [address] [place], [address] Platelet mean volume (Bld) [Entitic vol] 9.9 fL Normal 6.2-12.0 [facility] Comment on above: Performed By: #### L 500.2500, L100.0100 ####[facility] [address] [place], [address] Platelets (Bld) [#/Vol] 252 10*3/uL Normal 150-450 [facility] Comment on above: Performed By: #### L 500.2500, L100.0100 ####[facility] [address] [place], [address] RBC (Bld) [#/Vol] 3.92 10*6/uL Low 4.2-5.4 [facility] Comment on above: Performed By: #### L 500.2500, L100.0100 ####[facility] [address] [place], [address] RDW SD 43.2 fl Normal 35.1-43.9 [facility] Comment on above: Performed By: #### L 500.2500, L100.0100 ####[facility] [address] [place], [address] WBC (Bld) [#/Vol] 10.0 10*3/uL Normal 4.4-11.0 [facility] Comment on above: Performed By: #### L 500.2500, L100.0100 ####[facility] [address] [place], [address] Urine Cultureon 09-11-2024 URC Below infection leve l. Presumptive E. coli [place] Count <1000 Normal [facility] Comment on above: Performed By: #### M 100.2200 ####[facility] [address] [place], [address] Vitamin D 1,25-Dihydroxyon 0 09-11-2024 VIT D 1,25 DIHY 29.9 pg/mL Normal 24.8-81.5 [facility] Comment on above: Result Comment: Perf ormed at: [facility] - [facility] [address] [id number] Director: Karlee Oro MD, Phone: [phone] Performed By: #### L 3300.0960, L501.9520, L506.1001, L100.0100, L500.4050, L509.1000 ####[facility] [address] [place], [address] Basic Metabolic Profile (BMP )on 09-10-2024 BUN/CRE 18.2 RATIO Normal 10-20 [facility] Comment on above: Performed By: #### L 100.0100, L500.2500 ####[facility] [address] [place], [address] Calcium [Mass/Vol] 8.7 mg/dL Normal 7.6-11.0 [facility] Comment on above: Performed By: #### L 100.0100, L500.2500 ####[facility] [address] [place], [address] Chloride [Moles/Vol] 105 mmol/L Normal 98-108 [facility] Comment on above: Performed By: #### L 100.0100, L500.2500 ####[facility] [address] [place], [address] CO2 [Moles/Vol] 23.5 mmol/L Normal 21.0-32.0 [facility] Comment on above: Performed By: #### L 100.0100, L500.2500 ####[facility] [address] [place], [address] Creatinine [Mass/Vol] 1.00 mg/dL Normal 0.70-1.20 [facility] Comment on above: Performed By: #### L 100.0100, L500.2500 ####[facility] [address] [place], [address] ECRCL 71.49 ml/min Normal 50-250 [facility] Comment on above: Performed By: #### L 100.0100, L500.2500 ####[facility] [address] [place], [address] GAP 8 Normal 5-15 [facility] Comment on above: Performed By: #### L 100.0100, L500.2500 ####[facility] [address] [place], [address] GFR/1.73 sq M.predicted among non-blacks MDRD (S/P/Bld) [Vol rate/Area] 68 mL/min/{1.73_m2} Normal >60 [facility] Comment on above: Result Comment: mL/m in/1.73m2 CKD-EPI Creatinine Equation (2020) Performed By: #### L 100.0100, L500.2500 ####[facility] [address] [place], [address] Glucose [Mass/Vol] 251 mg/dL High 70-99 [facility] Comment on above: Performed By: #### L 100.0100, L500.2500 ####[facility] [address] [place], [address] Potassium [Moles/Vol] 4.4 mmol/L Normal 3.3-5.1 [facility] Comment on above: Performed By: #### L 100.0100, L500.2500 ####[facility] [address] [place], [address] Sodium [Moles/Vol] 136 mmol/L Normal 133-145 [facility] Comment on above: Performed By: #### L 100.0100, L500.2500 ####[facility] [address] [place], [address] Urea nitrogen [Mass/Vol] 18 mg/dL Normal 4-19 [facility] Comment on above: Performed By: #### L 100.0100, L500.2500 ####[facility] [address] [place], [address] Bedside Glucoseon 09-10-2024 FINGERSTICK GLU 241 mg/dL High 74-106 [facility] Comment on above: Result Comment: TALIA GEMENT OF PATIENT CARE PER NURSING PROTOCOL Performed By: #### L 501.080 ####[facility] [address] [place], [address] FINGERSTICK GLU 149 mg/dL High 74-106 [facility] Comment on above: Result Comment: TALIA GEMENT OF PATIENT CARE PER NURSING PROTOCOL Performed By: #### L 501.080 ####[facility] [address] [place], [address] FINGERSTICK GLU 250 mg/dL High 74-106 [facility] Comment on above: Result Comment: TALIA GEMENT OF PATIENT CARE PER NURSING PROTOCOL Performed By: #### L 501.080 ####[facility] [address] [place], [address] FINGERSTICK GLU 234 mg/dL High 74-106 [facility] Comment on above: Result Comment: TALIA GEMENT OF PATIENT CARE PER NURSING PROTOCOL Performed By: #### L 501.080 ####[facility] [address] [place], [address] CBC W/Diff, Automatedon 04-0 9-2024 Absolute Lymph 1.84 X10 3/uL Normal 0.83-4.51 [facility] Comment on above: Performed By: #### L 100.0100, L500.2500 ####[facility] [address] [place], [address] Absolute Neut 7.2 X10 3/uL Normal 2.0-7.7 [facility] Comment on above: Performed By: #### L 100.0100, L500.2500 ####[facility] [address] [place], [address] Basophils/100 WBC (Bld) 0.6 % Normal 0-1 [facility] Comment on above: Performed By: #### L 100.0100, L500.2500 ####[facility] [address] [place], [address] Eosinophils/100 WBC (Bld) 1.6 % Normal 0-5 [facility] Comment on above: Performed By: #### L 100.0100, L500.2500 ####[facility] [address] [place], [address] Erythrocyte distribution width (RBC) [Ratio] 14.1 % Normal 11.6-14.6 [facility] Comment on above: Performed By: #### L 100.0100, L500.2500 ####[facility] [address] [place], [address] Hematocrit (Bld) [Volume fraction] 33.4 % Low 37-47 [facility] Comment on above: Performed By: #### L 100.0100, L500.2500 ####[facility] [address] [place], [address] Hemoglobin (Bld) [Mass/Vol] 11.0 g/dL Low 12.0-15.0 [facility] Comment on above: Performed By: #### L 100.0100, L500.2500 ####[facility] [address] [place], [address] IG% 0.500 Normal 0.0-0.9 [facility] Comment on above: Result Comment: IG% - Immature Granulocytes (promyelocytes, myelocytes andmetamyelocytes) > 1% indicates that a LEFT SHIFT is Present. Performed By: #### L 100.0100, L500.2500 ####[facility] [address] [place], [address] Lymphocytes/100 WBC (Bld) 18.5 % Low 19-41 [facility] Comment on above: Performed By: #### L 100.0100, L500.2500 ####[facility] [address] [place], [address] MCH (RBC) [Entitic mass] 27.9 pg Normal 27.0-32.0 [facility] Comment on above: Performed By: #### L 100.0100, L500.2500 ####[facility] [address] [place], [address] MCHC (RBC) [Mass/Vol] 32.9 g/dL Normal 32-36 [facility] Comment on above: Performed By: #### L 100.0100, L500.2500 ####[facility] [address] [place], [address] MCV (RBC) [Entitic vol] 84.8 fL Normal 81-99 [facility] Comment on above: Performed By: #### L 100.0100, L500.2500 ####[facility] [address] [place], [address] Monocytes/100 WBC (Bld) 6.0 % Normal 0-10 [place] Comment on above: Performed By: #### L 100.0100, L500.2500 ####[facility] [address] [place], [address] Neutrophils/100 WBC (Bld) 72.8 % High 47-70 [facility] Comment on above: Performed By: #### L 100.0100, L500.2500 ####[facility] [address] [place], [address] Nucleated RBC (Bld) [#/Vol] 0 10*3/uL Normal 0-5 [facility] Comment on above: Performed By: #### L 100.0100, L500.2500 ####[facility] [address] [place], [address] Platelet mean volume (Bld) [Entitic vol] 9.9 fL Normal 6.2-12.0 [facility] Comment on above: Performed By: #### L 100.0100, L500.2500 ####[facility] [address] [place], [address] Platelets (Bld) [#/Vol] 245 10*3/uL Normal 150-450 [facility] Comment on above: Performed By: #### L 100.0100, L500.2500 ####[facility] [address] [place], [address] RBC (Bld) [#/Vol] 3.94 10*6/uL Low 4.2-5.4 [facility] Comment on above: Performed By: #### L 100.0100, L500.2500 ####[facility] [address] [place], [address] RDW SD 43.5 fl Normal 35.1-43.9 [facility] Comment on above: Performed By: #### L 100.0100, L500.2500 ####[facility] [address] [place], [address] WBC (Bld) [#/Vol] 10.0 10*3/uL Normal 4.4-11.0 [facility] Comment on above: Performed By: #### L 100.0100, L500.2500 ####[facility] [address] [place], [address] Basic Metabolic Profile (BMP )on 09-09-2024 BUN/CRE 14.8 RATIO Normal 10-20 [facility] Comment on above: Performed By: #### L 500.2500, L100.0100, L501.5200 ####[facility] [address] [place], [address] Calcium [Mass/Vol] 8.5 mg/dL Normal 7.6-11.0 [facility] Comment on above: Performed By: #### L 500.2500, L100.0100, L501.5200 ####[facility] [address] [place], [address] Chloride [Moles/Vol] 104 mmol/L Normal 98-108 [facility] Comment on above: Performed By: #### L 500.2500, L100.0100, L501.5200 ####[facility] [address] [place], [address] CO2 [Moles/Vol] 16.0 mmol/L Low 21.0-32.0 [facility] Comment on above: Performed By: #### L 500.2500, L100.0100, L501.5200 ####[facility] [address] [place], [address] Creatinine [Mass/Vol] 0.99 mg/dL Normal 0.70-1.20 [facility] Comment on above: Performed By: #### L 500.2500, L100.0100, L501.5200 ####[facility] [address] [place], [address] ECRCL 72.12 ml/min Normal 50-250 [facility] Comment on above: Performed By: #### L 500.2500, L100.0100, L501.5200 ####[facility] [address] [place], [address] GAP 13 Normal 5-15 [facility] Comment on above: Performed By: #### L 500.2500, L100.0100, L501.5200 ####[facility] [address] [place], [address] GFR/1.73 sq M.predicted among non-blacks MDRD (S/P/Bld) [Vol rate/Area] 68 mL/min/{1.73_m2} Normal >60 [facility] Comment on above: Result Comment: mL/m in/1.73m2 CKD-EPI Creatinine Equation (2020) Performed By: #### L 500.2500, L100.0100, L501.5200 ####[facility] [address] [place], [address] Glucose [Mass/Vol] 156 mg/dL High 70-99 [facility] Comment on above: Performed By: #### L 500.2500, L100.0100, L501.5200 ####[facility] [address] [place], [address] Potassium [Moles/Vol] 3.7 mmol/L Normal 3.3-5.1 [facility] Comment on above: Performed By: #### L 500.2500, L100.0100, L501.5200 ####[facility] [address] [place], [address] Sodium [Moles/Vol] 132 mmol/L Low 133-145 [facility] Comment on above: Performed By: #### L 500.2500, L100.0100, L501.5200 ####[facility] [address] [place], [address] Urea nitrogen [Mass/Vol] 15 mg/dL Normal 4-19 [facility] Comment on above: Performed By: #### L 500.2500, L100.0100, L501.5200 ####[facility] [address] [place], [address] Bedside Glucoseon 09-09-2024 FINGERSTICK GLU 193 mg/dL High 74-106 [facility] Comment on above: Result Comment: TALIA GEMENT OF PATIENT CARE PER NURSING PROTOCOL Performed By: #### L 501.080 ####[facility] [address] [place], [address] FINGERSTICK GLU 227 mg/dL High 74-106 [facility] Comment on above: Result Comment: TALIA GEMENT OF PATIENT CARE PER NURSING PROTOCOL Performed By: #### L 501.080 ####[facility] [address] [place], [address] FINGERSTICK GLU 228 mg/dL High 74-106 [facility] Comment on above: Result Comment: TALIA GEMENT OF PATIENT CARE PER NURSING PROTOCOL Performed By: #### L 501.080 ####[facility] [address] [place], [address] FINGERSTICK GLU 194 mg/dL High 74-106 [facility] Comment on above: Result Comment: TALIA GEMENT OF PATIENT CARE PER NURSING PROTOCOL Performed By: #### L 501.080 ####[facility] [address] [place], [address] CBC W/Diff, Automatedon 04-0 8-2024 Absolute Lymph 2.64 X10 3/uL Normal 0.83-4.51 [facility] Comment on above: Performed By: #### L 500.2500, L100.0100, L501.5200 ####[facility] [address] [place], [address] Absolute Neut 7.4 X10 3/uL Normal 2.0-7.7 [facility] Comment on above: Performed By: #### L 500.2500, L100.0100, L501.5200 ####[facility] [address] [place], [address] Basophils/100 WBC (Bld) 0.7 % Normal 0-1 [facility] Comment on above: Performed By: #### L 500.2500, L100.0100, L501.5200 ####[facility] [address] [place], [address] Eosinophils/100 WBC (Bld) 2.3 % Normal 0-5 [facility] Comment on above: Performed By: #### L 500.2500, L100.0100, L501.5200 ####[facility] [address] [place], [address] Erythrocyte distribution width (RBC) [Ratio] 14.0 % Normal 11.6-14.6 [facility] Comment on above: Performed By: #### L 500.2500, L100.0100, L501.5200 ####[facility] [address] [place], [address] Hematocrit (Bld) [Volume fraction] 32.6 % Low 37-47 [facility] Comment on above: Performed By: #### L 500.2500, L100.0100, L501.5200 ####[facility] [address] [place], [address] Hemoglobin (Bld) [Mass/Vol] 10.9 g/dL Low 12.0-15.0 [facility] Comment on above: Performed By: #### L 500.2500, L100.0100, L501.5200 ####[facility] [address] [place], [address] IG% 0.500 Normal 0.0-0.9 [facility] Comment on above: Result Comment: IG% - Immature Granulocytes (promyelocytes, myelocytes andmetamyelocytes) > 1% indicates that a LEFT SHIFT is Present. Performed By: #### L 500.2500, L100.0100, L501.5200 ####[facility] [address] [place], [address] Lymphocytes/100 WBC (Bld) 23.9 % Normal 19-41 [facility] Comment on above: Performed By: #### L 500.2500, L100.0100, L501.5200 ####[facility] [address] [place], [address] MCH (RBC) [Entitic mass] 28.5 pg Normal 27.0-32.0 [facility] Comment on above: Performed By: #### L 500.2500, L100.0100, L501.5200 ####[facility] [address] [place], [address] MCHC (RBC) [Mass/Vol] 33.4 g/dL Normal 32-36 [facility] Comment on above: Performed By: #### L 500.2500, L100.0100, L501.5200 ####[facility] [address] [place], [address] MCV (RBC) [Entitic vol] 85.1 fL Normal 81-99 [facility] Comment on above: Performed By: #### L 500.2500, L100.0100, L501.5200 ####[facility] [address] [place], [address] Monocytes/100 WBC (Bld) 5.5 % Normal 0-10 [facility] Comment on above: Performed By: #### L 500.2500, L100.0100, L501.5200 ####[facility] [address] [place], [address] Neutrophils/100 WBC (Bld) 67.1 % Normal 47-70 [facility] Comment on above: Performed By: #### L 500.2500, L100.0100, L501.5200 ####[facility] [address] [place], [address] Nucleated RBC (Bld) [#/Vol] 0 10*3/uL Normal 0-5 [facility] Comment on above: Performed By: #### L 500.2500, L100.0100, L501.5200 ####[facility] [address] [place], [address] Platelet mean volume (Bld) [Entitic vol] 9.6 fL Normal 6.2-12.0 [facility] Comment on above: Performed By: #### L 500.2500, L100.0100, L501.5200 ####[facility] [address] [place], [address] Platelets (Bld) [#/Vol] 247 10*3/uL Normal 150-450 [facility] Comment on above: Performed By: #### L 500.2500, L100.0100, L501.5200 ####[facility] [address] [place], [address] RBC (Bld) [#/Vol] 3.83 10*6/uL Low 4.2-5.4 [facility] Comment on above: Performed By: #### L 500.2500, L100.0100, L501.5200 ####[facility] [address] [place], [address] RDW SD 43.3 fl Normal 35.1-43.9 [facility] Comment on above: Performed By: #### L 500.2500, L100.0100, L501.5200 ####[facility] [address] [place], [address] WBC (Bld) [#/Vol] 11.0 10*3/uL Normal 4.4-11.0 [facility] Comment on above: Performed By: #### L 500.2500, L100.0100, L501.5200 ####[facility] [address] [place], [address] Magnesiumon 09-09-2024 Magnesium [Mass/Vol] 2.9 mg/dL High 1.5-2.2 [facility] Comment on above: Performed By: #### L 500.2500, L100.0100, L501.5200 ####[facility] [address] [place], [address] Magnesium (Unsp spec) [Mass/ Vol]Ordered By: Brenda Posadas on 09-09-2024 Magnesium measurement (mass/volume) 2.9 mg/dL High 1.5-2.2 [facility] Magnesium measurement (mass/ volume)Ordered By: Brenda Posadas on 09-09-2024 Magnesium (Unsp spec) [Mass/Vol] 2.9 mg/dL High 1.5-2.2 [facility] Phosphoruson 09-09-2024 Phosphate [Mass/Vol] 3.2 mg/dL Normal 2.7-4.5 [facility] Comment on above: Performed By: #### L 501.2300 ####[facility] [address] [place], [address] Serum phosphorus measurement Ordered By: Brenda Posadas on 09-09-2024 Serum phosphorus measurement 3.2 mg/dL 2.7-4.5 [facility] Urinalysis, Completeon 09-09 BACTERIA 1+ /hpf Normal None Seen [facility] Comment on above: Order Comment: CLEAN CATCH Performed By: #### L 400.0001 ####[facility] [address] [place], [address] WBC 0-5 SEEN Normal 0-5 [facility] Comment on above: Order Comment: CLEAN CATCH Performed By: #### L 400.0001 ####[facility] [address] [place], [address] EPI,SQUAMOUS 0 SEEN Normal 5-10 [facility] Comment on above: Order Comment: CLEAN CATCH Performed By: #### L 400.0001 ####[facility] [address] [place], [address] Mucus Ql (Urine sed) 0 SEEN Normal [facility] Comment on above: Order Comment: CLEAN CATCH Performed By: #### L 400.0001 ####[facility] [address] [place], [address] RBC 0 SEEN Normal 0-5 [facility] Comment on above: Order Comment: CLEAN CATCH Performed By: #### L 400.0001 ####[facility] [address] [place], [address] Urine cultureOrdered By: aLke Posadas on 09-09-2024 Bacteria identified Cx Nom (U) Presumptive E. coli Abnormal [facility] Urine culture Presumptive E. coli Abnormal [facility] 1,25-dihydroxyvitamin D3 [Ma ss/Vol]Ordered By: Rosaura Crane on 09-08-2024 Serum or plasma calcitriol measurement (mass/volume) 29.9 pg/mL 24.8-81.5 [facility] ALP [Catalytic activity/Vol] Ordered By: Rosaura Crane on 09-08-2024 Serum or plasma alkaline phosphatase measurement 105 U/L High 35-104 [facility] ALT [Catalytic activity/Vol] Ordered By: Rosaura Crane on 09-08-2024 Serum or plasma alanine aminotransferase (ALT) measurement 14 U/L <35 [facility] Albumin [Mass/Vol]Ordered By : Rosaura Crane on 09-08-2024 Serum or plasma albumin measurement (mass/volume) 3.1 g/dL Low 3.5-5.0 [facility] Albumin/Globulin [Mass ratio ]Ordered By: Rosaura Crane on 09-08-2024 Serum or plasma albumin/globulin mass ratio 1.2 RATIO 0.9-2.4 [facility] Basic Metabolic Profile (BMP )on 09-08-2024 BUN/CRE 17.5 RATIO Normal 10-20 [facility] Comment on above: Performed By: #### L 500.2500 ####[facility] [address] [facility] [address] Calcium [Mass/Vol] 9.2 mg/dL Normal 7.6-11.0 [facility] Comment on above: Performed By: #### L 500.2500 ####[facility] [address] [place], [address] Chloride [Moles/Vol] 100 mmol/L Normal 98-108 [facility] Comment on above: Performed By: #### L 500.2500 ####[facility] [address] [place], [address] CO2 [Moles/Vol] 21.1 mmol/L Normal 21.0-32.0 [facility] Comment on above: Performed By: #### L 500.2500 ####[facility] [address] [place], [address] Creatinine [Mass/Vol] 0.89 mg/dL Normal 0.70-1.20 [facility] Comment on above: Performed By: #### L 500.2500 ####[facility] [address] [place], [address] ECRCL 77.55 ml/min Normal 50-250 [facility] Comment on above: Performed By: #### L 500.2500 ####[facility] [address] [place], [address] GAP 13 Normal 5-15 [facility] Comment on above: Performed By: #### L 500.2500 ####[facility] [address] [place], [address] GFR/1.73 sq M.predicted among non-blacks MDRD (S/P/Bld) [Vol rate/Area] 78 mL/min/{1.73_m2} Normal >60 [facility] Comment on above: Result Comment: mL/m in/1.73m2 CKD-EPI Creatinine Equation (2020) Performed By: #### L 500.2500 ####[facility] [address] [place], [address] Glucose [Mass/Vol] 266 mg/dL High 70-99 [facility] Comment on above: Performed By: #### L 500.2500 ####[facility] [address] [place], [address] Potassium [Moles/Vol] 3.2 mmol/L Low 3.3-5.1 [facility] Comment on above: Performed By: #### L 500.2500 ####[facility] [address] [place], [address] Sodium [Moles/Vol] 134 mmol/L Normal 133-145 [facility] Comment on above: Performed By: #### L 500.2500 ####[facility] [address] [place], [address] Urea nitrogen [Mass/Vol] 16 mg/dL Normal 4-19 [facility] Comment on above: Performed By: #### L 500.2500 ####[facility] [address] [place], [address] Bedside Glucoseon 09-08-2024 FINGERSTICK GLU 245 mg/dL High 74-106 [facility] Comment on above: Result Comment: TALIA CHAMBERS OF PATIENT CARE PER NURSING PROTOCOL Performed By: #### L 501.080 ####[facility] [address] [place], [address] FINGERSTICK GLU 245 mg/dL High 74-106 [facility] Comment on above: Result Comment: TALIA GEMENT OF PATIENT CARE PER NURSING PROTOCOL Performed By: #### L 501.080 ####[facility] [address] [place], [address] FINGERSTICK GLU 418 mg/dL High 74-106 [facility] Comment on above: Result Comment: TALIA GEMENT OF PATIENT CARE PER NURSING PROTOCOL Performed By: #### L 501.080 ####[facility] [address] [place], [address] FINGERSTICK GLU 211 mg/dL High -106 [facility] Comment on above: Result Comment: TALIA GEMENT OF PATIENT CARE PER NURSING PROTOCOL Performed By: #### L 501.080 ####[facility] [address] [place], [address] FINGERSTICK GLU 249 mg/dL High [facility]106 [facility] Comment on above: Result Comment: TALIA GEMENT OF PATIENT CARE PER NURSING PROTOCOL Performed By: #### L 501.080 ####[facility] [address] [place], [address] FINGERSTICK GLU 205 mg/dL High [address] [place] [address] Comment on above: Result Comment: TALIA GEMENT OF PATIENT CARE PER NURSING PROTOCOL Performed By: #### L 501.080 ####[facility] [address] [place], [address] FINGERSTICK GLU 250 mg/dL High -106 [facility] Comment on above: Result Comment: TALIA GEMENT OF PATIENT CARE PER NURSING PROTOCOL Performed By: #### L 501.080 ####[facility] [address] [place], [address] Bilirubin, totalOrdered By: Rosaura Crane on 09-08-2024 Bilirubin [Mass/Vol] 0.65 mg/dL 0.00-1.30 [facility] Bilirubin, total 0.65 mg/dL 0.00-1.30 [facility] Blood cultureOrdered By: Lake Posadas on 09-08-2024 Bacteria identified Cx Nom (Bld) No growth in 5 days. [facility] Blood culture No growth in 5 days. [place] Bacteria identified Cx Nom (Bld) No growth in 5 days. [facility] Blood culture No growth in 5 days. [place] CBC W/Diff, Automatedon 04-0 Absolute Lymph 2.06 X10 3/uL Normal 0.83-4.51 [facility] Comment on above: Performed By: #### L 3300.0960, L501.9520, L506.1001, L100.0100, L500.4050, L509.1000 ####[facility] [address] [place], [address] Absolute Neut 5.2 X10 3/uL Normal 2.0-7.7 [facility] Comment on above: Performed By: #### L 3300.0960, L501.9520, L506.1001, L100.0100, L500.4050, L509.1000 ####[facility] [address] [place], [address] Basophils/100 WBC (Bld) 0.9 % Normal 0-1 [place] Comment on above: Performed By: #### L 3300.0960, L501.9520, L506.1001, L100.0100, L500.4050, L509.1000 ####[facility] [address] [place], [address] Eosinophils/100 WBC (Bld) 2.4 % Normal 0-5 [facility] Comment on above: Performed By: #### L 3300.0960, L501.9520, L506.1001, L100.0100, L500.4050, L509.1000 ####[facility] [address] [place], [address] Erythrocyte distribution width (RBC) [Ratio] 13.5 % Normal 11.6-14.6 [facility] Comment on above: Performed By: #### L 3300.0960, L501.9520, L506.1001, L100.0100, L500.4050, L509.1000 ####[facility] [address] [place], [address] Hematocrit (Bld) [Volume fraction] 36.8 % Low 37-47 [facility] Comment on above: Performed By: #### L 3300.0960, L501.9520, L506.1001, L100.0100, L500.4050, L509.1000 ####[facility] [address] [place], [address] Hemoglobin (Bld) [Mass/Vol] 12.2 g/dL Normal 12.0-15.0 [facility] Comment on above: Performed By: #### L 3300.0960, L501.9520, L506.1001, L100.0100, L500.4050, L509.1000 ####[facility] [address] [place], [address] IG% 0.400 Normal 0.0-0.9 [facility] Comment on above: Result Comment: IG% - Immature Granulocytes (promyelocytes, myelocytes andmetamyelocytes) > 1% indicates that a LEFT SHIFT is Present. Performed By: #### L 3300.0960, L501.9520, L506.1001, L100.0100, L500.4050, L509.1000 ####[facility] [address] [place], [address] Lymphocytes/100 WBC (Bld) 25.7 % Normal 19-41 [facility] Comment on above: Performed By: #### L 3300.0960, L501.9520, L506.1001, L100.0100, L500.4050, L509.1000 ####[facility] [address] [place], [address] MCH (RBC) [Entitic mass] 27.6 pg Normal 27.0-32.0 [facility] Comment on above: Performed By: #### L 3300.0960, L501.9520, L506.1001, L100.0100, L500.4050, L509.1000 ####[facility] [address] [place], [address] MCHC (RBC) [Mass/Vol] 33.2 g/dL Normal 32-36 [facility] Comment on above: Performed By: #### L 3300.0960, L501.9520, L506.1001, L100.0100, L500.4050, L509.1000 ####[facility] [address] [place], [address] MCV (RBC) [Entitic vol] 83.3 fL Normal 81-99 [facility] Comment on above: Performed By: #### L 3300.0960, L501.9520, L506.1001, L100.0100, L500.4050, L509.1000 ####[facility] [address] [place], [address] Monocytes/100 WBC (Bld) 6.0 % Normal 0-10 [facility] Comment on above: Performed By: #### L 3300.0960, L501.9520, L506.1001, L100.0100, L500.4050, L509.1000 ####[facility] [address] [place], [address] Neutrophils/100 WBC (Bld) 64.6 % Normal 47-70 [facility] Comment on above: Performed By: #### L 3300.0960, L501.9520, L506.1001, L100.0100, L500.4050, L509.1000 ####[facility] [address] [place], [address] Nucleated RBC (Bld) [#/Vol] 0 10*3/uL Normal 0-5 [facility] Comment on above: Performed By: #### L 3300.0960, L501.9520, L506.1001, L100.0100, L500.4050, L509.1000 ####[facility] [address] [place], [address] Platelet mean volume (Bld) [Entitic vol] 9.5 fL Normal 6.2-12.0 [facility] Comment on above: Performed By: #### L 3300.0960, L501.9520, L506.1001, L100.0100, L500.4050, L509.1000 ####[facility] [address] [place], [address] Platelets (Bld) [#/Vol] 275 10*3/uL Normal 150-450 [facility] Comment on above: Performed By: #### L 3300.0960, L501.9520, L506.1001, L100.0100, L500.4050, L509.1000 ####[facility] [address] [place], [address] RBC (Bld) [#/Vol] 4.42 10*6/uL Normal 4.2-5.4 [facility] Comment on above: Performed By: #### L 3300.0960, L501.9520, L506.1001, L100.0100, L500.4050, L509.1000 ####[facility] [address] [place], [address] RDW SD 40.7 fl Normal 35.1-43.9 [facility] Comment on above: Performed By: #### L 3300.0960, L501.9520, L506.1001, L100.0100, L500.4050, L509.1000 ####[facility] [address] [place], [address] WBC (Bld) [#/Vol] 8.0 10*3/uL Normal 4.4-11.0 [facility] Comment on above: Performed By: #### L 3300.0960, L501.9520, L506.1001, L100.0100, L500.4050, L509.1000 ####[facility] [address] [place], [address] CDIFF (PCR)on 09-08-2024 CDIFF Pending 027 027 NAP1-B1 Presumptive Negative *for epidemiolologic???use C. Diff PCR Negative- No toxigenic C. Diff Detected Normal [facility] Comment on above: Performed By: #### M 100.637, M100.6796 ####[facility] [address] [place], [address] Calcium ionizedOrdered By: Keerthi Posadas on 09-08-2024 Calcium ionized 1.25 mmol/L 1.09-1.30 [facility] Clostridium difficile detect ion by polymerase chain reactionOrdered By: Rosaura Crane on 09-08-2024 C. difficile DNA CRISSY+probe Ql (Unsp spec) [facility] Comprehensive Metabolic Prof ilon 09-08-2024 Albumin [Mass/Vol] 3.1 g/dL Low 3.5-5.0 [facility] Comment on above: Performed By: #### L 3300.0960, L501.9520, L506.1001, L100.0100, L500.4050, L509.1000 ####[facility] [address] [place], [address] Albumin/Globulin [Mass ratio] 1.2 {ratio} Normal 0.9-2.4 [facility] Comment on above: Performed By: #### L 3300.0960, L501.9520, L506.1001, L100.0100, L500.4050, L509.1000 ####[facility] [address] [place], [address] ALK PHOS 105 U/L High 35-104 [facility] Comment on above: Performed By: #### L 3300.0960, L501.9520, L506.1001, L100.0100, L500.4050, L509.1000 ####[facility] [address] [place], [address] ALT [Catalytic activity/Vol] 14 U/L Normal <=34 [facility] Comment on above: Performed By: #### L 3300.0960, L501.9520, L506.1001, L100.0100, L500.4050, L509.1000 ####[facility] [address] [place], [address] AST [Catalytic activity/Vol] 23 U/L Normal <=31 [facility] Comment on above: Performed By: #### L 3300.0960, L501.9520, L506.1001, L100.0100, L500.4050, L509.1000 ####[facility] [address] [place], [address] Bilirubin [Mass/Vol] 0.65 mg/dL Normal 0.00-1.30 [facility] Comment on above: Performed By: #### L 3300.0960, L501.9520, L506.1001, L100.0100, L500.4050, L509.1000 ####[facility] [address] [place], [address] BUN/CRE 16.9 RATIO Normal 10-20 [facility] Comment on above: Performed By: #### L 3300.0960, L501.9520, L506.1001, L100.0100, L500.4050, L509.1000 ####[facility] [address] [place], [address] Calcium [Mass/Vol] 8.8 mg/dL Normal 7.6-11.0 [facility] Comment on above: Performed By: #### L 3300.0960, L501.9520, L506.1001, L100.0100, L500.4050, L509.1000 ####[facility] [address] [place], [address] Chloride [Moles/Vol] 105 mmol/L Normal 98-108 [facility] Comment on above: Performed By: #### L 3300.0960, L501.9520, L506.1001, L100.0100, L500.4050, L509.1000 ####[facility] [address] [place], [address] CO2 [Moles/Vol] 20.3 mmol/L Low 21.0-32.0 [facility] Comment on above: Performed By: #### L 3300.0960, L501.9520, L506.1001, L100.0100, L500.4050, L509.1000 ####[facility] [address] [place], [address] Creatinine [Mass/Vol] 0.88 mg/dL Normal 0.70-1.20 [facility] Comment on above: Performed By: #### L 3300.0960, L501.9520, L506.1001, L100.0100, L500.4050, L509.1000 ####[facility] [address] [place], [address] ECRCL 78.43 ml/min Normal 50-250 [facility] Comment on above: Performed By: #### L 3300.0960, L501.9520, L506.1001, L100.0100, L500.4050, L509.1000 ####[facility] [address] [place], [address] GAP 11 Normal 5-15 [facility] Comment on above: Performed By: #### L 3300.0960, L501.9520, L506.1001, L100.0100, L500.4050, L509.1000 ####[facility] [address] [place], [address] GFR/1.73 sq M.predicted among non-blacks MDRD (S/P/Bld) [Vol rate/Area] 78 mL/min/{1.73_m2} Normal >60 [facility] Comment on above: Result Comment: mL/m in/1.73m2 CKD-EPI Creatinine Equation (2020) Performed By: #### L 3300.0960, L501.9520, L506.1001, L100.0100, L500.4050, L509.1000 ####[facility] [address] [place], [address] Globulin (S) [Mass/Vol] 2.7 g/dL Normal 2.2-4.2 [facility] Comment on above: Performed By: #### L 3300.0960, L501.9520, L506.1001, L100.0100, L500.4050, L509.1000 ####[facility] [address] [place], [address] Glucose [Mass/Vol] 203 mg/dL High 70-99 [facility] Comment on above: Performed By: #### L 3300.0960, L501.9520, L506.1001, L100.0100, L500.4050, L509.1000 ####[facility] [address] [place], [address] Potassium [Moles/Vol] 3.1 mmol/L Low 3.3-5.1 [facility] Comment on above: Performed By: #### L 3300.0960, L501.9520, L506.1001, L100.0100, L500.4050, L509.1000 ####[facility] [address] [place], [address] Sodium [Moles/Vol] 136 mmol/L Normal 133-145 [facility] Comment on above: Performed By: #### L 3300.0960, L501.9520, L506.1001, L100.0100, L500.4050, L509.1000 ####[facility] [address] [place], [address] T PROT 5.9 g/dL Normal 5.9-8.4 [facility] Comment on above: Performed By: #### L 3300.0960, L501.9520, L506.1001, L100.0100, L500.4050, L509.1000 ####[facility] [address] [place], [address] Urea nitrogen [Mass/Vol] 15 mg/dL Normal 4-19 [facility] Comment on above: Performed By: #### L 3300.0960, L501.9520, L506.1001, L100.0100, L500.4050, L509.1000 ####[facility] [address] [place], [address] ENTERIC PATHOGEN PANEL STOOL on 09-08-2024 EP PANEL CAMPYLOBACTER Not Detected Norovirus Not Detected Rotavirus Not Detected Salmonella Not Detected Shiga Toxin Not Detected Shigella sp. Not Detected VIBRIO Not Detected Yersinia Not Detected Normal [facility] Comment on above: Performed By: #### M 100.637, M100.6796 ####[facility] [address] [place], [address] Electrocardiogram reportOrde red By: Alli Briot on 09-08-2024 EKG study [facility] Work Phone: [phone] 09-08-2024 Ionized Calcium 1.08 mmol/L Low 1.09-1.30 [facility] Comment on above: Performed By: #### L 501.2276 ####[facility] [address] [place], [address] Ionized Calcium 1.25 mmol/L Normal 1.09-1.30 [facility] Comment on above: Performed By: #### L 501.2276 ####[facility] [address] [place], [address] L509.7001on 09-08-2024 Procalcitonin 0.14 ng/mL High <=0.10 [facility] Comment on above: Result Comment: Inte rpretation:<0.10-0.25 ng/mL: Antibiotic therapy discouraged. Bacterialinfection unlikely.0.25-0.50 ng/mL: Antibiotic therapy encouraged. Bacterialinfection possible.>0.50 ng/mL: Antibiotic therapy strongly encouraged.Suggestive of presence of bacterial infection.PCT should always be interpreted in the clinical context ofthe patient. Therefore, clinicians should use the PCTresults in conjunction with other laboratory findings andclinical signs of the patient. Performed By: #### L 509.7001 ####[facility] [address] [place], [place], [address] No Panel InformationOrdered By: Rosaura Rosa Maria on 09-08-2024 23 U/L <32 [facility] PTH intactOrdered By: Rosa Maria on 09-08-2024 PTH intact 28 pg/mL [facility] PTHINon 09-08-2024 PTH 28 pg/mL Normal [facility] Comment on above: Performed By: #### L 3300.0960, L501.9520, L506.1001, L100.0100, L500.4050, L509.1000 ####[facility] [address] [place], [place], [address] Serum globulin measurementOr dered By: Rosaura Crane on 09-08-2024 Globulin (S) [Mass/Vol] 2.7 g/dL 2.2-4.2 [facility] Serum globulin measurement 2.7 g/dL 2.2-4.2 [facility] Serum or plasma alanine hamilton otransferase (ALT) measurementOrdered By: Rosaura Crane on 09-08-2024 ALT [Catalytic activity/Vol] 14 U/L <35 [facility] Serum or plasma albumin xiomara urement (mass/volume)Ordered By: Rosaura Crane on 09-08-2024 Albumin [Mass/Vol] 3.1 g/dL Low 3.5-5.0 [facility] Serum or plasma albumin/glob ulin mass ratioOrdered By: Rosaura Crane on 09-08-2024 Albumin/Globulin [Mass ratio] 1.2 {ratio} 0.9-2.4 [facility] Serum or plasma alkaline sabiha sphatase measurementOrdered By: Rosaura Crane on 09-08-2024 ALP [Catalytic activity/Vol] 105 U/L High 35-104 [facility] Serum or plasma calcitriol m easurement (mass/volume)Ordered By: Rosaura Crane on 09-08-2024 1,25-dihydroxyvitamin D3 [Mass/Vol] 29.9 pg/mL 24.8-81.5 [facility] TSH DL <= 0.005 mIU/L QnOrde red By: Rosaura Crane on 09-08-2024 TSH Qn 2.460 uIU/mL 0.300-4.20 0 [facility] Serum or plasma thyroid stimulating hormone (TSH) measurement by high sensitivity met 2.460 uIU/mL 0.300-4.20 0 [facility] Thyroid Stim Hormone (TSH)on 09-08-2024 TSH 2.460 uIU/mL Normal 0.300-4.20 0 [facility] Comment on above: Performed By: #### L 3300.0960, L501.9520, L506.1001, L100.0100, L500.4050, L509.1000 ####[facility] [address] [place], [place], [id number] Total proteinOrdered By: Castro Crane on 09-08-2024 Protein [Mass/Vol] 5.9 g/dL 5.9-8.4 [facility] Total protein 5.9 g/dL 5.9-8.4 [facility] Vitamin D, 25-hydroxyOrdered By: Rosaura Crane on 09-08-2024 Vitamin D, 25-hydroxy 14.3 ng/mL Low 30-100 [facility] Vitamin D,25 Hydroxyon 09-08 Vitamin D 25-OH 14.3 ng/mL Low 30-100 [facility] Comment on above: Result Comment: Charissa min D StatusDeficiency: <20 ng/mL (50nmol/L)Insufficiency: 20-30 ng/mL (50-75 nmol/L)Sufficiency: 30-100 ng/mL (75-250 nmol/L)Toxicity: >100 ng/mL (>250 nmol/L) Performed By: #### L 3300.0960, L501.9520, L506.1001, L100.0100, L500.4050, L509.1000 ####[facility] [address] [place], [address] 12 Lead EKGon 09-07-2024 12 Lead EKG Normal [facility] ALP [Catalytic activity/Vol] Ordered By: Davis Ibarra on 09-07-2024 Serum or plasma alkaline phosphatase measurement 85 U/L 35-104 [facility] ALT [Catalytic activity/Vol] Ordered By: Davis Ibarra on 09-07-2024 Serum or plasma alanine aminotransferase (ALT) measurement 11 U/L <35 [facility] Abdomen/Pelvis W IV Cont ONL Yon 09-07-2024 Abdomen/Pelvis W IV Cont ONLY Normal [facility] Absolute neutrophil countOrd ered By: Davis Ibarra on 09-07-2024 Absolute neutrophil count 6.6 X10^3/uL 2.0-7.7 [facility] Albumin [Mass/Vol]Ordered By : Davis Ibarra on 09-07-2024 Serum or plasma albumin measurement (mass/volume) 2.6 g/dL Low 3.5-5.0 [facility] Albumin/Globulin [Mass ratio ]Ordered By: Davis Ibarra on 09-07-2024 Serum or plasma albumin/globulin mass ratio 1.3 RATIO 0.9-2.4 [facility] Anion gap [Moles/Vol]Ordered By: Davis Ibarra on 09-07-2024 Anion gap in Serum or Plasma 9 5-15 [facility] BUN/creatinine ratioOrdered By: Davis Ibarra on 09-07-2024 BUN/creatinine ratio 18.5 RATIO 10-20 [facility] Basophil percentageOrdered B y: Davis Ibarra on 09-07-2024 Basophil percentage 0.5 % 0-1 [facility] Bilirubin, totalOrdered By: Davis Ibarra on 09-07-2024 Bilirubin, total 0.40 mg/dL 0.00-1.30 [facility] CBC W/Diff, Automatedon Absolute Lymph 1.22 X10 3/uL Normal 0.83-4.51 [facility] Comment on above: Order Comment: RED W. PREVIOUS SPECIMEN REJECTED DUE TOPOSSIBLE CONTAMINATION. 09/07/241742 Eileen Mauricio. Performed By: #### L 501.2450, L100.0100, L500.4050 ####[facility] [address] [place], [address] Absolute Neut 6.6 X10 3/uL Normal 2.0-7.7 [facility] Comment on above: Order Comment: RED W. PREVIOUS SPECIMEN REJECTED DUE TOPOSSIBLE CONTAMINATION. 09/07/241742 Eileen Mauricio. Performed By: #### L 501.2450, L100.0100, L500.4050 ####[facility] [address] [place], [address] Basophils/100 WBC (Bld) 0.5 % Normal 0-1 [facility] Comment on above: Order Comment: RED W. PREVIOUS SPECIMEN REJECTED DUE TOPOSSIBLE CONTAMINATION. 09/07/241742 Eileen Mauricio. Performed By: #### L 501.2450, L100.0100, L500.4050 ####[facility] [address] [place], [address] Eosinophils/100 WBC (Bld) 1.7 % Normal 0-5 [facility] Comment on above: Order Comment: REDRA W. PREVIOUS SPECIMEN REJECTED DUE TOPOSSIBLE CONTAMINATION. 09/07/241742 Eileen Mauricio. Performed By: #### L 501.2450, L100.0100, L500.4050 ####[facility] [address] [place], [address] Erythrocyte distribution width (RBC) [Ratio] 13.3 % Normal 11.6-14.6 [facility] Comment on above: Order Comment: REDRA W. PREVIOUS SPECIMEN REJECTED DUE TOPOSSIBLE CONTAMINATION. 09/07/241742 Eileen Mauricio. Performed By: #### L 501.2450, L100.0100, L500.4050 ####[facility] [address] [place], [address] Hematocrit (Bld) [Volume fraction] 31.8 % Low 37-47 [facility] Comment on above: Order Comment: REDRA W. PREVIOUS SPECIMEN REJECTED DUE TOPOSSIBLE CONTAMINATION. 09/07/241742 Eileen Mauricio. Performed By: #### L 501.2450, L100.0100, L500.4050 ####[facility] [address] [place], [address] Hemoglobin (Bld) [Mass/Vol] 10.8 g/dL Low 12.0-15.0 [facility] Comment on above: Order Comment: REDRA W. PREVIOUS SPECIMEN REJECTED DUE TOPOSSIBLE CONTAMINATION. 09/07/241742 Eileen Mauricio. Performed By: #### L 501.2450, L100.0100, L500.4050 ####[facility] [address] [place], [address] IG% 0.500 Normal 0.0-0.9 [facility] Comment on above: Order Comment: REDRA W. PREVIOUS SPECIMEN REJECTED DUE TOPOSSIBLE CONTAMINATION. 09/07/241742 Eileen Mauricio. Result Comment: IG% - Immature Granulocytes (promyelocytes, myelocytes andmetamyelocytes) > 1% indicates that a LEFT SHIFT is Present. Performed By: #### L 501.2450, L100.0100, L500.4050 ####[facility] [address] [place], [address] Lymphocytes/100 WBC (Bld) 14.5 % Low 19-41 [facility] Comment on above: Order Comment: REDRA W. PREVIOUS SPECIMEN REJECTED DUE TOPOSSIBLE CONTAMINATION. 09/07/241742 Eileen Mauricio. Performed By: #### L 501.2450, L100.0100, L500.4050 ####[facility] [address] [place], [address] MCH (RBC) [Entitic mass] 28.3 pg Normal 27.0-32.0 [facility] Comment on above: Order Comment: REDRA W. PREVIOUS SPECIMEN REJECTED DUE TOPOSSIBLE CONTAMINATION. 09/07/241742 Eileen Mauricio. Performed By: #### L 501.2450, L100.0100, L500.4050 ####[facility] [address] [place], [address] MCHC (RBC) [Mass/Vol] 34.0 g/dL Normal 32-36 [facility] Comment on above: Order Comment: REDRA W. PREVIOUS SPECIMEN REJECTED DUE TOPOSSIBLE CONTAMINATION. 09/07/241742 Eileen Mauricio. Performed By: #### L 501.2450, L100.0100, L500.4050 ####[facility] [address] [place], [address] MCV (RBC) [Entitic vol] 83.2 fL Normal 81-99 [facility] Comment on above: Order Comment: REDRA W. PREVIOUS SPECIMEN REJECTED DUE TOPOSSIBLE CONTAMINATION. 09/07/241742 Eileen Mauricio. Performed By: #### L 501.2450, L100.0100, L500.4050 ####[facility] [address] [place], [address] Monocytes/100 WBC (Bld) 5.0 % Normal 0-10 [facility] Comment on above: Order Comment: REDRA W. PREVIOUS SPECIMEN REJECTED DUE TOPOSSIBLE CONTAMINATION. 09/07/241742 Eileen Mauricio. Performed By: #### L 501.2450, L100.0100, L500.4050 ####[facility] [address] [place], [address] Neutrophils/100 WBC (Bld) 77.8 % High 47-70 [facility] Comment on above: Order Comment: REDRA W. PREVIOUS SPECIMEN REJECTED DUE TOPOSSIBLE CONTAMINATION. 09/07/241742 Eileen Mauricio. Performed By: #### L 501.2450, L100.0100, L500.4050 ####[facility] [address] [place], [address] Nucleated RBC (Bld) [#/Vol] 0 10*3/uL Normal 0-5 [facility] Comment on above: Order Comment: REDRA W. PREVIOUS SPECIMEN REJECTED DUE TOPOSSIBLE CONTAMINATION. 09/07/241742 Eileen Mauricio. Performed By: #### L 501.2450, L100.0100, L500.4050 ####[facility] [address] [place], [address] Platelet mean volume (Bld) [Entitic vol] 9.3 fL Normal 6.2-12.0 [facility] Comment on above: Order Comment: REDRA W. PREVIOUS SPECIMEN REJECTED DUE TOPOSSIBLE CONTAMINATION. 09/07/241742 Eileen Mauricio. Performed By: #### L 501.2450, L100.0100, L500.4050 ####[facility] [address] [place], [address] Platelets (Bld) [#/Vol] 235 10*3/uL Normal 150-450 [facility] Comment on above: Order Comment: REDRA W. PREVIOUS SPECIMEN REJECTED DUE TOPOSSIBLE CONTAMINATION. 09/07/241742 Eileen Mauricio. Performed By: #### L 501.2450, L100.0100, L500.4050 ####[facility] [address] [place], [address] RBC (Bld) [#/Vol] 3.82 10*6/uL Low 4.2-5.4 [facility] Comment on above: Order Comment: REDRA W. PREVIOUS SPECIMEN REJECTED DUE TOPOSSIBLE CONTAMINATION. 09/07/241742 Eileen Mauricio. Performed By: #### L 501.2450, L100.0100, L500.4050 ####[facility] [address] [place], [address] RDW SD 40.4 fl Normal 35.1-43.9 [facility] Comment on above: Order Comment: REDRA W. PREVIOUS SPECIMEN REJECTED DUE TOPOSSIBLE CONTAMINATION. 09/07/241742 Eileen Mauricio. Performed By: #### L 501.2450, L100.0100, L500.4050 ####[facility] [address] [place], [address] WBC (Bld) [#/Vol] 8.4 10*3/uL Normal 4.4-11.0 [facility] Comment on above: Order Comment: RED W. PREVIOUS SPECIMEN REJECTED DUE TOPOSSIBLE CONTAMINATION. 09/07/241742 Eileen Mauricio. Performed By: #### L 501.2450, L100.0100, L500.4050 ####[facility] [address] [place], [address] Hemoglobin (Bld) [Mass/Vol] 4.8 g/dL Invalid Interpretation Code 12.0-15.0 [facility] Comment on above: Result Comment: This specimen has been REJECTED due to Laboratory criteria:Contaminated/Leaked.PEPPER has been notified of need of recollection.09/07/241741 Eileen LozanoCRITICAL VALUE CALLED TO César BUTTERFIELDRBDHOXNKO46/06/25 1717 Li Coronel.RESULTS READ BACK BY SAME. Performed By: #### L 100.0100, L501.2450, L500.4050 ####[facility] [address] [place], [address] Absolute Lymph 0.64 X10 3/uL Low 0.83-4.51 [facility] Comment on above: Result Comment: This specimen has been REJECTED due to Laboratory criteria:Contaminated/Leaked.EVANGLEIST has been notified of need of recollection.09/07/241741 Eileen Mauricio Performed By: #### L 100.0100, L501.2450, L500.4050 ####[facility] [address] [place], [address] Absolute Neut 3.3 X10 3/uL Normal 2.0-7.7 [facility] Comment on above: Result Comment: This specimen has been REJECTED due to Laboratory criteria:Contaminated/Leaked.EVANGELIST has been notified of need of recollection.09/07/241741 Eileen Mauricio Performed By: #### L 100.0100, L501.2450, L500.4050 ####[facility] [address] [place], [address] BASO# 0.00 X10 3/uL Normal [facility] Comment on above: Result Comment: This specimen has been REJECTED due to Laboratory criteria:Contaminated/Leaked.EVANGELIST has been notified of need of recollection.09/07/241741 Eileen Mauricio Performed By: #### L 100.0100, L501.2450, L500.4050 ####[facility] [address] [place], [address] Basophils/100 WBC (Bld) 0.0 % Normal 0-1 [facility] Comment on above: Result Comment: This specimen has been REJECTED due to Laboratory criteria:Contaminated/Leaked.EVANGELIST has been notified of need of recollection.09/07/241741 Eileen Mauricio Performed By: #### L 100.0100, L501.2450, L500.4050 ####[facility] [address] [place], [address] EOS# 0.05 X10 3/uL Normal [facility] Comment on above: Result Comment: This specimen has been REJECTED due to Laboratory criteria:Contaminated/Leaked.EVANGELIST has been notified of need of recollection.09/07/241741 Eileen Mauricio Performed By: #### L 100.0100, L501.2450, L500.4050 ####[facility] [address] [place], [address] Eosinophils/100 WBC (Bld) 1.2 % Normal 0-5 [facility] Comment on above: Result Comment: This specimen has been REJECTED due to Laboratory criteria:Contaminated/Leaked.EVANGELIST has been notified of need of recollection.09/07/241741 Eileen Mauricio Performed By: #### L 100.0100, L501.2450, L500.4050 ####[facility] [address] [place], [address] Erythrocyte distribution width (RBC) [Ratio] 13.4 % Normal 11.6-14.6 [facility] Comment on above: Result Comment: This specimen has been REJECTED due to Laboratory criteria:Contaminated/Leaked.EVANGELIST has been notified of need of recollection.09/07/241741 Eileen Mauricio Performed By: #### L 100.0100, L501.2450, L500.4050 ####[facility] [address] [place], [address] Hematocrit (Bld) [Volume fraction] 14.7 % Low 37-47 [facility] Comment on above: Result Comment: This specimen has been REJECTED due to Laboratory criteria:Contaminated/Leaked.EVANGELIST has been notified of need of recollection.09/07/241741 Eileen Mauricio Performed By: #### L 100.0100, L501.2450, L500.4050 ####[facility] [address] [place], [address] IG# 0.030 X10 3/uL High 0.0-0.0 [facility] Comment on above: Result Comment: This specimen has been REJECTED due to Laboratory criteria:Contaminated/Leaked.EVANGELIST has been notified of need of recollection.09/07/241741 Eileen Mauricio Performed By: #### L 100.0100, L501.2450, L500.4050 ####[facility] [address] [place], [address] IG% 0.700 Normal 0.0-0.9 [facility] Comment on above: Result Comment: This specimen has been REJECTED due to Laboratory criteria:Contaminated/Leaked.EVANGELIST has been notified of need of recollection.09/07/241741 Eileen LozanoIG% - Immature Granulocytes (promyelocytes, myelocytes andmetamyelocytes) > 1% indicates that a LEFT SHIFT is Present. Performed By: #### L 100.0100, L501.2450, L500.4050 ####[facility] [address] [place], [address] LYMPH# 0.64 X10 3/ul Low 0.83-4.51 [facility] Comment on above: Result Comment: This specimen has been REJECTED due to Laboratory criteria:Contaminated/Leaked.EVANGELIST has been notified of need of recollection.09/07/241741 Eileen Mauricio Performed By: #### L 100.0100, L501.2450, L500.4050 ####[facility] [address] [place], [address] Lymphocytes/100 WBC (Bld) 15.2 % Low 19-41 [facility] Comment on above: Result Comment: This specimen has been REJECTED due to Laboratory criteria:Contaminated/Leaked.EVANGELIST has been notified of need of recollection.09/07/241741 Eileen Mauricio Performed By: #### L 100.0100, L501.2450, L500.4050 ####[facility] [address] [place], [address] MCH (RBC) [Entitic mass] 28.4 pg Normal 27.0-32.0 [facility] Comment on above: Result Comment: This specimen has been REJECTED due to Laboratory criteria:Contaminated/Leaked.EVANGELIST has been notified of need of recollection.09/07/241741 Eileen Mauricio Performed By: #### L 100.0100, L501.2450, L500.4050 ####[facility] [address] [place], [address] MCHC (RBC) [Mass/Vol] 32.7 g/dL Normal 32-36 [facility] Comment on above: Result Comment: This specimen has been REJECTED due to Laboratory criteria:Contaminated/Leaked.EVANGELIST has been notified of need of recollection.09/07/241741 Eileen Mauricio Performed By: #### L 100.0100, L501.2450, L500.4050 ####[facility] [address] [place], [address] MCV (RBC) [Entitic vol] 87.0 fL Normal 81-99 [facility] Comment on above: Result Comment: This specimen has been REJECTED due to Laboratory criteria:Contaminated/Leaked.EVANGELIST has been notified of need of recollection.09/07/241741 Eileen Mauricio Performed By: #### L 100.0100, L501.2450, L500.4050 ####[facility] [address] [place], [address] MONO # 0.24 X10 3/uL Normal [facility] Comment on above: Result Comment: This specimen has been REJECTED due to Laboratory criteria:Contaminated/Leaked.EVANGELIST has been notified of need of recollection.09/07/241741 Eileen Mauricio Performed By: #### L 100.0100, L501.2450, L500.4050 ####[facility] [address] [place], [address] Monocytes/100 WBC (Bld) 5.7 % Normal 0-10 [facility] Comment on above: Result Comment: This specimen has been REJECTED due to Laboratory criteria:Contaminated/Leaked.PEPPER has been notified of need of recollection.09/07/241741 Eileen Mauricio Performed By: #### L 100.0100, L501.2450, L500.4050 ####[facility] [address] [place], [address] Neutrophil # 3.26 X10 3/uL Normal 2.7-7.7 [facility] Comment on above: Result Comment: This specimen has been REJECTED due to Laboratory criteria:Contaminated/Leaked.EVANGELIST has been notified of need of recollection.09/07/241741 Eileen Mauricio Performed By: #### L 100.0100, L501.2450, L500.4050 ####[facility] [address] [place], [address] Neutrophils/100 WBC (Bld) 77.2 % High 47-70 [facility] Comment on above: Result Comment: This specimen has been REJECTED due to Laboratory criteria:Contaminated/Leaked.EVANGELIST has been notified of need of recollection.09/07/241741 Eileen Mauricio Performed By: #### L 100.0100, L501.2450, L500.4050 ####[facility] [address] [place], [address] Nucleated RBC (Bld) [#/Vol] 0 10*3/uL Normal 0-5 [facility] Comment on above: Result Comment: This specimen has been REJECTED due to Laboratory criteria:Contaminated/Leaked.EVANGELIST has been notified of need of recollection.09/07/241741 Eileen Mauricio Performed By: #### L 100.0100, L501.2450, L500.4050 ####[facility] [address] [place], [address] Platelet mean volume (Bld) [Entitic vol] 8.8 fL Normal 6.2-12.0 [facility] Comment on above: Result Comment: This specimen has been REJECTED due to Laboratory criteria:Contaminated/Leaked.EVANGELIST has been notified of need of recollection.09/07/241741 Eileen Mauricio Performed By: #### L 100.0100, L501.2450, L500.4050 ####[facility] [address] [place], [address] Platelets (Bld) [#/Vol] 102 10*3/uL Low 150-450 [facility] Comment on above: Result Comment: This specimen has been REJECTED due to Laboratory criteria:Contaminated/Leaked.EVANGELIST has been notified of need of recollection.09/07/241741 Eileen Mauricio Performed By: #### L 100.0100, L501.2450, L500.4050 ####[facility] [address] [place], [address] POSITIVE COUNT YES Abnormal [facility] Comment on above: Result Comment: This specimen has been REJECTED due to Laboratory criteria:Contaminated/Leaked.EVANGELIST has been notified of need of recollection.09/07/241741 Eileen Mauricio Performed By: #### L 100.0100, L501.2450, L500.4050 ####[facility] [address] [place], [address] RBC (Bld) [#/Vol] 1.69 10*6/uL Low 4.2-5.4 [facility] Comment on above: Result Comment: This specimen has been REJECTED due to Laboratory criteria:Contaminated/Leaked.EVANGELIST has been notified of need of recollection.09/07/241741 Eileen Mauricio Performed By: #### L 100.0100, L501.2450, L500.4050 ####[facility] [address] [place], [address] RDW SD 42.5 fl Normal 35.1-43.9 [facility] Comment on above: Result Comment: This specimen has been REJECTED due to Laboratory criteria:Contaminated/Leaked.EVANGELIST has been notified of need of recollection.09/07/241741 Eileen Mauricio Performed By: #### L 100.0100, L501.2450, L500.4050 ####[facility] [address] [place], [address] WBC (Bld) [#/Vol] 4.2 10*3/uL Low 4.4-11.0 [facility] Comment on above: Result Comment: This specimen has been REJECTED due to Laboratory criteria:Contaminated/Leaked.EVANGELIST has been notified of need of recollection.09/07/241741 Eileen Mauricio Performed By: #### L 100.0100, L501.2450, L500.4050 ####[facility] [address] [place], [address] Calcium [Mass/Vol]Ordered By : Davis Ibarra on 09-07-2024 Serum or plasma calcium measurement (mass/volume) 6.5 mg/dL Low 7.6-11.0 [facility] Carbon dioxide, total [Moles /volume] in Central venous bloodOrdered By: Davis Ibarra on 09-07-2024 Carbon dioxide, total [Moles/volume] in Central venous blood 18.5 mmol/L Low 21.0-32.0 [facility] Chloride assayOrdered By: Matt Ibarra on 09-07-2024 Chloride assay 108 mmol/L 98-108 [facility] Comprehensive Metabolic Prof ilon 09-07-2024 Potassium [Moles/Vol] 2.5 mmol/L Invalid Interpretation Code 3.3-5.1 [facility] Comment on above: Order Comment: REUBEN [...] Performed By: #### L 501.2450, L100.0100, L500.4050 ####[facility] [address] [place], [address] ALB Normal 3.5-5.0 [facility] Comment on above: Result Comment: This specimen has been REJECTED due to Laboratory criteria:Contaminated/Leaked.EVANGELIST has been notified of need of recollection.09/07/241741 Eileen Mauricio Performed By: #### L 100.0100, L501.2450, L500.4050 ####[facility] [address] [place], [address] ALK PHOS Normal 35-104 [facility] Comment on above: Result Comment: This specimen has been REJECTED due to Laboratory criteria:Contaminated/Leaked.EVANGELIST has been notified of need of recollection.09/07/241741 Eileen Mauricio Performed By: #### L 100.0100, L501.2450, L500.4050 ####[facility] [address] [place], [address] ALT Normal <=34 [facility] Comment on above: Result Comment: This specimen has been REJECTED due to Laboratory criteria:Contaminated/Leaked.EVANGELIST has been notified of need of recollection.09/07/241741 Eileen Mauricio Performed By: #### L 100.0100, L501.2450, L500.4050 ####[facility] [address] [place], [address] AST Normal <=31 [facility] Comment on above: Result Comment: This specimen has been REJECTED due to Laboratory criteria:Contaminated/Leaked.EVANGELIST has been notified of need of recollection.09/07/241741 Eileen Mauricio Performed By: #### L 100.0100, L501.2450, L500.4050 ####[facility] [address] [place], [address] BUN Normal 4-19 [facility] Comment on above: Result Comment: This specimen has been REJECTED due to Laboratory criteria:Contaminated/Leaked.EVANGELIST has been notified of need of recollection.09/07/241741 Eileen Mauricio Performed By: #### L 100.0100, L501.2450, L500.4050 ####[facility] [address] [place], [address] BUN/CRE Normal 10-20 [facility] Comment on above: Result Comment: This specimen has been REJECTED due to Laboratory criteria:Contaminated/Leaked.EVANGELIST has been notified of need of recollection.09/07/241741 Eileen Mauricio Performed By: #### L 100.0100, L501.2450, L500.4050 ####[facility] [address] [place], [address] Calcium Normal 7.6-11.0 [facility] Comment on above: Result Comment: This specimen has been REJECTED due to Laboratory criteria:Contaminated/Leaked.EVANGELIST has been notified of need of recollection.09/07/241741 Eileen Mauricio Performed By: #### L 100.0100, L501.2450, L500.4050 ####[facility] [address] [place], [address] CL Normal 98-108 [facility] Comment on above: Result Comment: This specimen has been REJECTED due to Laboratory criteria:Contaminated/Leaked.EVANGELIST has been notified of need of recollection.09/07/241741 Eileen Mauricio Performed By: #### L 100.0100, L501.2450, L500.4050 ####[facility] [address] [place], [address] CO2 Normal 21.0-32.0 [facility] Comment on above: Result Comment: This specimen has been REJECTED due to Laboratory criteria:Contaminated/Leaked.EVANGELIST has been notified of need of recollection.09/07/241741 Eileen Mauricio Performed By: #### L 100.0100, L501.2450, L500.4050 ####[facility] [address] [place], [address] CREAT,SERUM Normal 0.70-1.20 [facility] Comment on above: Result Comment: This specimen has been REJECTED due to Laboratory criteria:Contaminated/Leaked.EVANGELIST has been notified of need of recollection.09/07/241741 Eileen Mauricio Performed By: #### L 100.0100, L501.2450, L500.4050 ####[facility] [address] [place], [address] eGFR Normal >60 [facility] Comment on above: Result Comment: This specimen has been REJECTED due to Laboratory criteria:Contaminated/Leaked.EVANGELIST has been notified of need of recollection.09/07/241741 Eileen Mauricio Performed By: #### L 100.0100, L501.2450, L500.4050 ####[facility] [address] [place], [address] GAP Normal 5-15 [facility] Comment on above: Result Comment: This specimen has been REJECTED due to Laboratory criteria:Contaminated/Leaked.EVANGELIST has been notified of need of recollection.09/07/241741 Eileen Mauricio Performed By: #### L 100.0100, L501.2450, L500.4050 ####[facility] [address] [place], [address] GLU Normal 70-99 [facility] Comment on above: Result Comment: This specimen has been REJECTED due to Laboratory criteria:Contaminated/Leaked.EVANGELIST has been notified of need of recollection.09/07/241741 Eileen Mauricio Performed By: #### L 100.0100, L501.2450, L500.4050 ####[facility] [address] [place], [address] Potassium Normal 3.3-5.1 [facility] Comment on above: Result Comment: This specimen has been REJECTED due to Laboratory criteria:Contaminated/Leaked.EVANGELIST has been notified of need of recollection.09/07/241741 Eileen Mauricio Performed By: #### L 100.0100, L501.2450, L500.4050 ####[facility] [address] [place], [address] T BILI Normal 0.00-1.30 [facility] Comment on above: Result Comment: This specimen has been REJECTED due to Laboratory criteria:Contaminated/Leaked.EVANGELIST has been notified of need of recollection.09/07/241741 Eileen Mauricio Performed By: #### L 100.0100, L501.2450, L500.4050 ####[facility] [address] [place], [address] T PROT Normal 5.9-8.4 [facility] Comment on above: Result Comment: This specimen has been REJECTED due to Laboratory criteria:Contaminated/Leaked.EVANGELIST has been notified of need of recollection.09/07/241741 Eileen Mauricio Performed By: #### L 100.0100, L501.2450, L500.4050 ####[facility] [address] [place], [address] Comprehensive Metabolic Profil Normal 133-145 [facility] Comment on above: Result Comment: This specimen has been REJECTED due to Laboratory criteria:Contaminated/Leaked.EVANGELIST has been notified of need of recollection.09/07/241741 Eileen Mauricio Performed By: #### L 100.0100, L501.2450, L500.4050 ####[facility] [address] [place], [address] Creatinine [Mass/Vol]Ordered By: Davis Ibarra on 09-07-2024 Serum creatinine measurement (mass/volume) 0.92 mg/dL 0.70-1.20 [facility] Emergency Department Summary on 09-07-2024 Emergency Department Summary Normal [facility] Eosinophil percentageOrdered By: Davis Ibarra on 09-07-2024 Eosinophil percentage 1.7 % 0-5 [facility] Erythrocyte distribution wid th (RBC) [Ratio]Ordered By: Davis Ibarra on 09-07-2024 Erythrocyte distribution width ratio 13.3 % 11.6-14.6 [facility] Erythrocyte distribution width standard deviation 40.4 fl 35.1-43.9 [facility] Estimation of creatinine sylvain aranceOrdered By: Davis Ibarra on 09-07-2024 Estimation of creatinine clearance 76.05 ml/min 50-250 [facility] GFR/1.73 sq M.predicted estephanie g non-blacks MDRD (S/P/Bld) [Vol rate/Area]Ordered By: Davis Ibarra on 09-07-2024 Glomerular filtration rate (GFR) estimation/1.73 sq m using serum, plasma, or whole b 74 >60 [facility] Glucose [Mass/Vol]Ordered By : Davis Ibarra on 09-07-2024 Serum glucose measurement (mass/volume) 283 mg/dL High 70-99 [facility] H AND P Exam - Hospitaliston 09-07-2024 H&P Exam - Hospitalist Normal [facility] Hematocrit Auto (Bld) [Volum e fraction]Ordered By: Davis Ibarra on 09-07-2024 Automated blood hematocrit (percentage) 31.8 % Low 37-47 [facility] Hemoglobin measurementOrdere d By: Davis Ibarra on 09-07-2024 Hemoglobin measurement 10.8 g/dL Low 12.0-15.0 [facility] Immature granulocytes/100 WB C Auto (Bld)Ordered By: Davis Ibarra on 09-07-2024 Automated immature granulocyte percentage 0.500 % 0.0-0.9 [facility] Lipaseon 09-07-2024 Lipase [Catalytic activity/Vol] 28 U/L Normal 13-75 [facility] Comment on above: Order Comment: FLORIDALMA W. PREVIOUS SPECIMEN REJECTED DUE TOPOSSIBLE CONTAMINATION. 09/07/241742 Eileen Mauricio. Result Comment: Gege edgar note:LIPASE revised reference range effective 22.New Lipase methodology. Expected to produce lower valuesthan the previous assay method.NEW Reference Range: 13 - 75 U/L Performed By: #### L 501.2450, L100.0100, L500.4050 ####[facility] [address] [place], [place], [id number] Lipase [Catalytic activity/Vol] 12 U/L Low -75 [facility] Comment on above: Order Comment: This [...] Performed By: #### L 100.0100, L501.2450, L500.4050 ####[facility] [address] [place], [address] Lipase measurementOrdered By : Davis Ibarra on 09-07-2024 Lipase measurement 28 U/L 13-75 [facility] Lymphocytes Auto (Unsp spec) [#/Vol]Ordered By: Davis Ibarra on 09-07-2024 Absolute lymphocyte count 1.22 X10^3/uL 0.83-4.51 [facility] Lymphocytes/100 WBC Auto (Un sp spec)Ordered By: Davis Ibarra on 09-07-2024 Automated lymphocyte count as percentage of total leukocytes 14.5 % Low 19-41 [facility] MCV (RBC) [Entitic vol]Order ed By: Davis Ibarra on 09-07-2024 MCV (mean corpuscular volume) determination 83.2 fL 81-99 [facility] Magnesiumon 09-07-2024 Magnesium [Mass/Vol] 1.2 mg/dL Low 1.5-2.2 [facility] Comment on above: Performed By: #### L 501.6842 ####[facility] [address] [place], [place], [address] Magnesium (Unsp spec) [Mass/ Vol]Ordered By: Davis Ibarra on 09-07-2024 Magnesium measurement (mass/volume) 1.2 mg/dL Low 1.5-2.2 [facility] Mean corpuscular hemoglobin (MCH) determinationOrdered By: Davis Ibarra on 09-07-2024 Mean corpuscular hemoglobin (MCH) determination 28.3 pg 27.0-32.0 [facility] Mean corpuscular hemoglobin concentration (MCHC) determinationOrdered By: Davis Ibarra on 09-07-2024 Mean corpuscular hemoglobin concentration (MCHC) determination 34.0 g/dL 32-36 [facility] Mean platelet volume determi nationOrdered By: Davis Ibarra on 09-07-2024 Mean platelet volume determination 9.3 fl 6.2-12.0 [facility] Monocyte percentageOrdered B y: Davis Ibarra on 09-07-2024 Monocyte percentage 5.0 % 0-10 [facility] Neutrophil percentageOrdered By: Davis Ibarra on 09-07-2024 Neutrophil percentage 77.8 % High 47-70 [facility] No Panel InformationOrdered By: Davis Ibarra on 09-07-2024 19 U/L <32 [facility] Nucleated red blood cell per centageOrdered By: Davis Ibarra on 09-07-2024 Nucleated red blood cell percentage 0 % 0-5 [facility] Phosphoruson 09-07-2024 Phosphate [Mass/Vol] 2.5 mg/dL Low 2.7-4.5 [facility] Comment on above: Performed By: #### L 501.3828 ####[facility] [address] [place], [place], [address] Platelet countOrdered By: Matt Ibarra on 09-07-2024 Platelet count 235 K/mm3 150-450 [facility] Potassium (Unsp spec) [Mass/ Vol]Ordered By: Davis Ibarra on 09-07-2024 Potassium measurement (mass/volume) 2.5 mmol/L Low 3.3-5.1 [facility] Procalcitonin IA [Mass/Vol]O rdered By: Rosaura Crane on 09-07-2024 Procalcitonin [Mass/volume] in Serum or Plasma by Immunoassay 0.14 ng/mL High <0.11 [facility] Procalcitonin [Mass/volume] in Serum or Plasma by ImmunoassayOrdered By: Rosaura Crane on 09-07-2024 Procalcitonin IA [Mass/Vol] 0.14 ng/mL High <0.11 [facility] RBC Auto (Bld) [#/Vol]Ordere d By: Davis Ibarra on 09-07-2024 Automated blood erythrocyte count 3.82 M/mm3 Low 4.2-5.4 [facility] Serum globulin measurementOr dered By: Davis Ibarra on 09-07-2024 Serum globulin measurement 2.1 g/dL Low 2.2-4.2 [facility] Sodium levelOrdered By: Bhupendra Ibarra on 09-07-2024 Sodium level 136 mmol/L 133-145 [facility] Total proteinOrdered By: Latoya Ibarra on 09-07-2024 Total protein 4.7 g/dL Low 5.9-8.4 [facility] Type AND Screenon 09-07-2024 Ab SCREEN GEL Negative Normal [facility] Comment on above: Order Comment: A Performed By: #### B TS ####[facility] [address] [place], [place], [id number] Urea nitrogen [Mass/Vol]Orde red By: Davis Ibarra on 09-07-2024 Serum or plasma urea nitrogen measurement (mass/volume) 17 mg/dL 4-19 [facility] Urinalysis, Completeon 09-07 BACTERIA Normal None Seen [facility] Comment on above: Order Comment: UA CO MPLETED ON LEAN CATCH Result Comment: @COM PLETED ON 09/12 Performed By: #### L 400.0001 ####[facility] [address] [place], [address] BILIRUBIN URINE Normal Negative [facility] Comment on above: Order Comment: UA CO MPLETED ON LEAN CATCH Result Comment: @COM PLETED ON 09/12 Performed By: #### L 400.0001 ####[facility] [address] [place], [address] Clarity (U) Normal Clear [facility] Comment on above: Order Comment: UA CO MPLETED ON LEAN CATCH Result Comment: @COM PLETED ON 09/12 Performed By: #### L 400.0001 ####[facility] [address] [place], [address] Color (U) Normal Yellow [facility] Comment on above: Order Comment: UA CO MPLETED ON LEAN CATCH Result Comment: @COM PLETED ON 09/12 Performed By: #### L 400.0001 ####[facility] [address] [place], [address] EPI,SQUAMOUS Normal 5-10 [facility] Comment on above: Order Comment: UA CO MPLETED ON LEAN CATCH Result Comment: @COM PLETED ON 09/12 Performed By: #### L 400.0001 ####[facility] [address] [place], [address] GLUCOSE, UR Normal Normal [facility] Comment on above: Order Comment: UA CO MPLETED ON LEAN CATCH Result Comment: @COM PLETED ON 09/12 Performed By: #### L 400.0001 ####[facility] [address] [place], [address] KETONE UR Normal Negative [facility] Comment on above: Order Comment: UA CO MPLETED ON LEAN CATCH Result Comment: @COM PLETED ON 09/12 Performed By: #### L 400.0001 ####[facility] [address] [place], [address] LEUK ESTERASE Normal Negative [facility] Comment on above: Order Comment: UA CO MPLETED ON LEAN CATCH Result Comment: @COM PLETED ON 09/12 Performed By: #### L 400.0001 ####[facility] [address] [place], [address] Mucus Ql (Urine sed) Normal [facility] Comment on above: Order Comment: UA CO MPLETED ON LEAN CATCH Result Comment: @COM PLETED ON 09/12 Performed By: #### L 400.0001 ####[facility] [address] [place], [address] Nitrite Ql (U) Normal Negative [facility] Comment on above: Order Comment: UA CO MPLETED ON LEAN CATCH Result Comment: @COM PLETED ON 09/12 Performed By: #### L 400.0001 ####[facility] [address] [place], [address] OCCULT BLOOD-UR Normal Negative [facility] Comment on above: Order Comment: UA CO MPLETED ON LEAN CATCH Result Comment: @COM PLETED ON 09/12 Performed By: #### L 400.0001 ####[facility] [address] [place], [address] pH UR Normal 5.0 - 8.0 [facility] Comment on above: Order Comment: UA CO MPLETED ON LEAN CATCH Result Comment: @COM PLETED ON 09/12 Performed By: #### L 400.0001 ####[facility] [address] [place], [address] PROT DIPSTX Normal Negative [facility] Comment on above: Order Comment: UA CO MPLETED ON 4/11CLEAN CATCH Result Comment: @COM PLETED ON 09/12 Performed By: #### L 400.0001 ####[facility] [address] [place], [address] RBC Normal 0-5 [facility] Comment on above: Order Comment: UA CO MPLETED ON LEAN CATCH Result Comment: @COM PLETED ON 09/12 Performed By: #### L 400.0001 ####[facility] [address] [place], [address] SP.GR. DIPSTX Normal 1.002-1.03 0 [facility] Comment on above: Order Comment: UA CO MPLETED ON LEAN CATCH Result Comment: @COM PLETED ON 09/12 Performed By: #### L 400.0001 ####[facility] [address] [place], [address] UR Preservative Normal [facility] Comment on above: Order Comment: UA CO MPLETED ON LEAN CATCH Result Comment: @COM PLETED ON 09/12 Performed By: #### L 400.0001 ####[facility] [address] [place], [address] UROBILI Normal Normal [facility] Comment on above: Order Comment: UA CO MPLETED ON LEAN CATCH Result Comment: @COM PLETED ON 09/12 Performed By: #### L 400.0001 ####[facility] [address] [place], [address] WBC Normal 0-5 [facility] Comment on above: Order Comment: UA CO MPLETED ON LEAN CATCH Result Comment: @COM PLETED ON 09/12 Performed By: #### L 400.0001 ####[facility] [address] [place], [address] White blood cell (WBC) count Ordered By: Davis Ibarra on 09-07-2024 White blood cell (WBC) count 8.4 K/mm3 4.4-11.0 [facility] ALP [Catalytic activity/Vol] Ordered By: Zack Card on 09-05-2024 Serum or plasma alkaline phosphatase measurement 141 U/L High 35-104 [facility] ALT [Catalytic activity/Vol] Ordered By: Zack Card on 09-05-2024 Serum or plasma alanine aminotransferase (ALT) measurement 22 U/L <35 [facility] Absolute lymphocyte countOrd ered By: Zack Card on 09-05-2024 Lymphocytes Auto (Unsp spec) [#/Vol] 1.39 10*3/uL 0.83-4.51 [facility] Absolute neutrophil countOrd ered By: Zack Card on 09-05-2024 Absolute neutrophil count 7.9 X10^3/uL High 2.0-7.7 [facility] Albumin [Mass/Vol]Ordered By : Zack Card on 09-05-2024 Serum or plasma albumin measurement (mass/volume) 4.2 g/dL 3.5-5.0 [facility] Albumin/Globulin [Mass ratio ]Ordered By: Zack Card on 09-05-2024 Serum or plasma albumin/globulin mass ratio 1.0 RATIO 0.9-2.4 [facility] Anion gap [Moles/Vol]Ordered By: Zack Card on 09-05-2024 Anion gap in Serum or Plasma 15 5-15 [facility] Anion gap in Serum or Plasma Ordered By: Zack Card on 09-05-2024 Anion gap [Moles/Vol] 15 mmol/L 5-15 [facility] Automated lymphocyte count a s percentage of total leukocytesOrdered By: Zack Card on 09-05-2024 Lymphocytes/100 WBC Auto (Unsp spec) 14.1 % Low 19-41 [facility] BUN/creatinine ratioOrdered By: Zack Card on 09-05-2024 Urea nitrogen/Creatinine [Mass ratio] 16.4 mg/mg 10-20 [facility] BUN/creatinine ratio 16.4 RATIO 10-20 [facility] Basophil percentageOrdered B y: Zack Card on 09-05-2024 Basophils/100 WBC (Bld) 0.4 % 0-1 [facility] Basophil [facility] 0.4 % 0-1 [facility] Bilirubin, totalOrdered By: Zack Card on 09-05-2024 Bilirubin [Mass/Vol] 0.72 mg/dL 0.00-1.30 [facility] Bilirubin, total 0.72 mg/dL 0.00-1.30 [facility] CBC W/Diff, Automatedon Absolute Lymph 1.39 X10 3/uL Normal 0.83-4.51 [facility] Comment on above: Performed By: #### L 500.4050, L100.0100, L501.2450 ####[facility] [address] [place], [address] Absolute Neut 7.9 X10 3/uL High 2.0-7.7 [facility] Comment on above: Performed By: #### L 500.4050, L100.0100, L501.2450 ####[facility] [address] [place], [address] Basophils/100 WBC (Bld) 0.4 % Normal 0-1 [place] Comment on above: Performed By: #### L 500.4050, L100.0100, L501.2450 ####[facility] [address] [place], [address] Eosinophils/100 WBC (Bld) 0.2 % Normal 0-5 [facility] Comment on above: Performed By: #### L 500.4050, L100.0100, L501.2450 ####[facility] [address] [place], [address] Erythrocyte distribution width (RBC) [Ratio] 13.3 % Normal 11.6-14.6 [facility] Comment on above: Performed By: #### L 500.4050, L100.0100, L501.2450 ####[facility] [address] [place], [address] Hematocrit (Bld) [Volume fraction] 44.4 % Normal 37-47 [facility] Comment on above: Performed By: #### L 500.4050, L100.0100, L501.2450 ####[facility] [address] [place], [address] Hemoglobin (Bld) [Mass/Vol] 15.1 g/dL High 12.0-15.0 [facility] Comment on above: Performed By: #### L 500.4050, L100.0100, L501.2450 ####[facility] [address] [place], [address] IG% 0.500 Normal 0.0-0.9 [facility] Comment on above: Result Comment: IG% - Immature Granulocytes (promyelocytes, myelocytes andmetamyelocytes) > 1% indicates that a LEFT SHIFT is Present. Performed By: #### L 500.4050, L100.0100, L501.2450 ####[facility] [address] [place], [address] Lymphocytes/100 WBC (Bld) 14.1 % Low 19-41 [facility] Comment on above: Performed By: #### L 500.4050, L100.0100, L501.2450 ####[facility] [address] [place], [address] MCH (RBC) [Entitic mass] 28.1 pg Normal 27.0-32.0 [facility] Comment on above: Performed By: #### L 500.4050, L100.0100, L501.2450 ####[facility] [address] [place], [address] MCHC (RBC) [Mass/Vol] 34.0 g/dL Normal 32-36 [facility] Comment on above: Performed By: #### L 500.4050, L100.0100, L501.2450 ####[facility] [address] [place], [address] MCV (RBC) [Entitic vol] 82.5 fL Normal 81-99 [facility] Comment on above: Performed By: #### L 500.4050, L100.0100, L501.2450 ####[facility] [address] [place], [address] Monocytes/100 WBC (Bld) 5.1 % Normal 0-10 [facility] Comment on above: Performed By: #### L 500.4050, L100.0100, L501.2450 ####[facility] [address] [place], [address] Neutrophils/100 WBC (Bld) 79.7 % High 47-70 [facility] Comment on above: Performed By: #### L 500.4050, L100.0100, L501.2450 ####[facility] [address] [place], [address] Nucleated RBC (Bld) [#/Vol] 0 10*3/uL Normal 0-5 [facility] Comment on above: Performed By: #### L 500.4050, L100.0100, L501.2450 ####[facility] [address] [place], [address] Platelet mean volume (Bld) [Entitic vol] 8.7 fL Normal 6.2-12.0 [facility] Comment on above: Performed By: #### L 500.4050, L100.0100, L501.2450 ####[facility] [address] [place], [address] Platelets (Bld) [#/Vol] 314 10*3/uL Normal 150-450 [facility] Comment on above: Performed By: #### L 500.4050, L100.0100, L501.2450 ####[facility] [address] [place], [address] RBC (Bld) [#/Vol] 5.38 10*6/uL Normal 4.2-5.4 [facility] Comment on above: Performed By: #### L 500.4050, L100.0100, L501.2450 ####[facility] [address] [place], [address] RDW SD 39.7 fl Normal 35.1-43.9 [facility] Comment on above: Performed By: #### L 500.4050, L100.0100, L501.2450 ####[facility] [address] [place], [address] WBC (Bld) [#/Vol] 9.9 10*3/uL Normal 4.4-11.0 [facility] Comment on above: Performed By: #### L 500.4050, L100.0100, L501.2450 ####[facility] [address] [place], [address] Calcium [Mass/Vol]Ordered By : Zack Card on 09-05-2024 Serum or plasma calcium measurement (mass/volume) 10.0 mg/dL 7.6-11.0 [facility] Carbon dioxide, total [Moles /volume] in Central venous bloodOrdered By: Zack Card on 09-05-2024 CO2 [Moles/Vol] 22.0 mmol/L 21.0-32.0 [facility] Carbon dioxide, total [Moles/volume] in Central venous blood 22.0 mmol/L 21.0-32.0 [facility] Chloride assayOrdered By: Butch Card on 09-05-2024 Chloride [Moles/Vol] 95 mmol/L Low 98-108 [facility] Chloride assay 95 mmol/L Low 98-108 [facility] Comprehensive Metabolic Prof ilon 09-05-2024 Albumin [Mass/Vol] 4.2 g/dL Normal 3.5-5.0 [facility] Comment on above: Performed By: #### L 500.4050, L100.0100, L501.2450 ####[facility] [address] [place], [address] Albumin/Globulin [Mass ratio] 1.0 {ratio} Normal 0.9-2.4 [facility] Comment on above: Performed By: #### L 500.4050, L100.0100, L501.2450 ####[facility] [address] [place], [address] ALK PHOS 141 U/L High 35-104 [facility] Comment on above: Performed By: #### L 500.4050, L100.0100, L501.2450 ####[facility] [address] [place], [address] ALT [Catalytic activity/Vol] 22 U/L Normal <=34 [facility] Comment on above: Performed By: #### L 500.4050, L100.0100, L501.2450 ####[facility] [address] [place], [address] AST [Catalytic activity/Vol] 33 U/L High <=31 [facility] Comment on above: Result Comment: Hemo lysis present, Results??could be affected.?? Performed By: #### L 500.4050, L100.0100, L501.2450 ####[facility] [address] [place], [address] Bilirubin [Mass/Vol] 0.72 mg/dL Normal 0.00-1.30 [facility] Comment on above: Performed By: #### L 500.4050, L100.0100, L501.2450 ####[facility] [address] [place], [address] BUN/CRE 16.4 RATIO Normal 10-20 [facility] Comment on above: Performed By: #### L 500.4050, L100.0100, L501.2450 ####[facility] [address] [place], [address] Calcium [Mass/Vol] 10.0 mg/dL Normal 7.6-11.0 [facility] Comment on above: Performed By: #### L 500.4050, L100.0100, L501.2450 ####[facility] [address] [place], [address] Chloride [Moles/Vol] 95 mmol/L Low 98-108 [facility] Comment on above: Performed By: #### L 500.4050, L100.0100, L501.2450 ####[facility] [address] [place], [address] CO2 [Moles/Vol] 22.0 mmol/L Normal 21.0-32.0 [facility] Comment on above: Performed By: #### L 500.4050, L100.0100, L501.2450 ####[facility] [address] [place], [address] Creatinine [Mass/Vol] 0.84 mg/dL Normal 0.70-1.20 [facility] Comment on above: Performed By: #### L 500.4050, L100.0100, L501.2450 ####[facility] [address] [place], [address] ECRCL 83.78 ml/min Normal 50-250 [facility] Comment on above: Performed By: #### L 500.4050, L100.0100, L501.2450 ####[facility] [address] [place], [address] GAP 15 Normal 5-15 [facility] Comment on above: Performed By: #### L 500.4050, L100.0100, L501.2450 ####[facility] [address] [place], [address] GFR/1.73 sq M.predicted among non-blacks MDRD (S/P/Bld) [Vol rate/Area] 83 mL/min/{1.73_m2} Normal >60 [facility] Comment on above: Result Comment: mL/m in/1.73m2 CKD-EPI Creatinine Equation (2020) Performed By: #### L 500.4050, L100.0100, L501.2450 ####[facility] [address] [place], [address] Globulin (S) [Mass/Vol] 4.0 g/dL Normal 2.2-4.2 [facility] Comment on above: Performed By: #### L 500.4050, L100.0100, L501.2450 ####[facility] [address] [place], [address] Glucose [Mass/Vol] 382 mg/dL High 70-99 [facility] Comment on above: Performed By: #### L 500.4050, L100.0100, L501.2450 ####[facility] [address] [place], [address] Potassium [Moles/Vol] 3.6 mmol/L Normal 3.3-5.1 [facility] Comment on above: Result Comment: Hemo lysis present, Results??could be affected.?? Performed By: #### L 500.4050, L100.0100, L501.2450 ####[facility] [address] [place], [address] Sodium [Moles/Vol] 132 mmol/L Low 133-145 [facility] Comment on above: Performed By: #### L 500.4050, L100.0100, L501.2450 ####[facility] [address] [place], [address] T PROT 8.2 g/dL Normal 5.9-8.4 [facility] Comment on above: Performed By: #### L 500.4050, L100.0100, L501.2450 ####[facility] [address] [place], [address] Urea nitrogen [Mass/Vol] 14 mg/dL Normal 4-19 [facility] Comment on above: Performed By: #### L 500.4050, L100.0100, L501.2450 ####[facility] [address] [place], [address] Creatinine [Mass/Vol]Ordered By: Zack Card on 09-05-2024 Serum creatinine measurement (mass/volume) 0.84 mg/dL 0.70-1.20 [facility] Emergency Department Summary on 09-05-2024 Emergency Department Summary Normal [facility] Eosinophil percentageOrdered By: Zack Card on 09-05-2024 Eosinophils/100 WBC (Bld) 0.2 % 0-5 [facility] Eosinophil percentage 0.2 % 0-5 [facility] Erythrocyte distribution wid th (RBC) [Ratio]Ordered By: Zack Card on 09-05-2024 Erythrocyte distribution width ratio 13.3 % 11.6-14.6 [facility] Erythrocyte distribution width standard deviation 39.7 fl 35.1-43.9 [facility] Erythrocyte distribution wid th ratioOrdered By: Zack Card on 09-05-2024 Erythrocyte distribution width (RBC) [Ratio] 13.3 % 11.6-14.6 [facility] Erythrocyte distribution wid th standard deviationOrdered By: Zack Card on 09-05-2024 Erythrocyte distribution width (RBC) [Ratio] 39.7 fl 35.1-43.9 [facility] Estimation of creatinine sylvain aranceOrdered By: Zack Card on 09-05-2024 Estimation of creatinine clearance 83.78 ml/min 50-250 [facility] GFR/1.73 sq M.predicted estephanie g non-blacks MDRD (S/P/Bld) [Vol rate/Area]Ordered By: Zack Card on 09-05-2024 Glomerular filtration rate (GFR) estimation/1.73 sq m using serum, plasma, or whole b 83 >60 [facility] Glomerular filtration rate ( GFR) estimation/1.73 sq m using serum, plasma, or whole bOrdered By: Zack Card on 09-05-2024 GFR/1.73 sq M.predicted among non-blacks MDRD (S/P/Bld) [Vol rate/Area] 83 mL/min/{1.73_m2} >60 [facility] Glucose [Mass/Vol]Ordered By : Zack Card on 09-05-2024 Serum glucose measurement (mass/volume) 382 mg/dL High 70-99 [facility] Hematocrit Auto (Bld) [Volum e fraction]Ordered By: Zack Card on 09-05-2024 Hematocrit (Bld) [Volume fraction] 44.4 % 37-47 [facility] Automated blood hematocrit (percentage) 44.4 % 37-47 [facility] Hemoglobin measurementOrdere d By: Zack Card on 09-05-2024 Hemoglobin (Bld) [Mass/Vol] 15.1 g/dL High 12.0-15.0 [facility] Hemoglobin measurement 15.1 g/dL High 12.0-15.0 [facility] Immature granulocytes/100 WB C Auto (Bld)Ordered By: Zack Card on 09-05-2024 Immature granulocytes/100 WBC (Bld) 0.500 % 0.0-0.9 [facility] Automated immature granulocyte percentage 0.500 % 0.0-0.9 [facility] Lipaseon 09-05-2024 Lipase [Catalytic activity/Vol] 33 U/L Normal 13-75 [facility] Comment on above: Result Comment: Gege edgar note:LIPASE revised reference range effective 22.New Lipase methodology. Expected to produce lower valuesthan the previous assay method.NEW Reference Range: 13 - 75 U/L Performed By: #### L 500.4050, L100.0100, L501.2450 ####[facility] [address] [place], [place], [address] Lipase measurementOrdered By : Zack Card on 09-05-2024 Lipase measurement 33 U/L High <32 [facility] Lymphocytes Auto (Unsp spec) [#/Vol]Ordered By: Zack Card on 09-05-2024 Absolute lymphocyte count 1.39 X10^3/uL 0.83-4.51 [facility] Lymphocytes/100 WBC Auto (Un sp spec)Ordered By: Zack Card on 09-05-2024 Automated lymphocyte count as percentage of total leukocytes 14.1 % Low 19-41 [facility] MCV (RBC) [Entitic vol]Order ed By: Zack Card on 09-05-2024 MCV (mean corpuscular volume) determination 82.5 fL 81-99 [facility] MCV (mean corpuscular volume ) determinationOrdered By: Zack Card on 09-05-2024 MCV (RBC) [Entitic vol] 82.5 fL 81-99 [facility] Mean corpuscular hemoglobin (MCH) determinationOrdered By: Zack Card on 09-05-2024 MCH (RBC) [Entitic mass] 28.1 pg 27.0-32.0 [facility] Mean corpuscular hemoglobin (MCH) determination 28.1 pg 27.0-32.0 [facility] Mean corpuscular hemoglobin concentration (MCHC) determinationOrdered By: Zack Card on 09-05-2024 Mean corpuscular hemoglobin concentration (MCHC) determination 34.0 g/dL 32-36 [facility] Mean platelet volume determi nationOrdered By: Zack Card on 09-05-2024 Mean platelet volume determination 8.7 fl 6.2-12.0 [facility] Monocyte percentageOrdered B y: Zack Card on 09-05-2024 Monocytes/100 WBC (Bld) 5.1 % 0-10 [facility] Monocyte percentage 5.1 % 0-10 [facility] Neutrophil percentageOrdered By: Zack Card on 09-05-2024 Neutrophils/100 WBC (Bld) 79.7 % High 47-70 [facility] Neutrophil percentage 79.7 % High 47-70 [facility] Nucleated red blood cell per centageOrdered By: Zack Card on 09-05-2024 Nucleated red blood cell percentage 0 % 0-5 [facility] Platelet countOrdered By: Butch Card on 09-05-2024 Platelets (Bld) [#/Vol] 314 10*3/uL 150-450 [facility] Platelet count 314 K/mm3 150-450 [facility] Potassium (Unsp spec) [Mass/ Vol]Ordered By: Zack Card on 09-05-2024 Potassium measurement (mass/volume) 3.6 mmol/L 3.3-5.1 [facility] Potassium measurement (mass/ volume)Ordered By: Zack Card on 09-05-2024 Potassium (Unsp spec) [Mass/Vol] 3.6 mmol/L 3.3-5.1 [facility] RBC Auto (Bld) [#/Vol]Ordere d By: Zack Card on 09-05-2024 RBC (Bld) [#/Vol] 5.38 10*6/uL 4.2-5.4 [facility] Automated blood erythrocyte count 5.38 M/mm3 4.2-5.4 [facility] Serum creatinine measurement (mass/volume)Ordered By: Zack Card on 09-05-2024 Creatinine [Mass/Vol] 0.84 mg/dL 0.70-1.20 [facility] Serum globulin measurementOr dered By: Zack Card 09-05-2024 Globulin (S) [Mass/Vol] 4.0 g/dL 2.2-4.2 [facility] Serum globulin measurement 4.0 g/dL 2.2-4.2 [facility] Serum glucose measurement (m ass/volume)Ordered By: Zack Card on 09-05-2024 Glucose [Mass/Vol] 382 mg/dL High 70-99 [facility] Serum or plasma alanine hamilton otransferase (ALT) measurementOrdered By: Zack Card 09-05-2024 ALT [Catalytic activity/Vol] 22 U/L <35 [facility] Serum or plasma albumin xiomara urement (mass/volume)Ordered By: Zack Card on 09-05-2024 Albumin [Mass/Vol] 4.2 g/dL 3.5-5.0 [facility] Serum or plasma albumin/glob ulin mass ratioOrdered By: Zack Card 09-05-2024 Albumin/Globulin [Mass ratio] 1.0 {ratio} 0.9-2.4 [facility] Serum or plasma alkaline sabiha sphatase measurementOrdered By: Zack Card 09-05-2024 ALP [Catalytic activity/Vol] 141 U/L High 35-104 [facility] Serum or plasma calcium xiomara urement (mass/volume)Ordered By: Zack Card on 09-05-2024 Calcium [Mass/Vol] 10.0 mg/dL 7.6-11.0 [facility] Serum or plasma urea nitroge n measurement (mass/volume)Ordered By: Zack Card on 09-05-2024 Urea nitrogen [Mass/Vol] 14 mg/dL 09-20 [facility] Sodium levelOrdered By: Zack Card on 09-05-2024 Sodium [Moles/Vol] 132 mmol/L Low 133-145 [facility] Sodium level 132 mmol/L Low 133-145 [facility] Total proteinOrdered By: Sanjay Card on 09-05-2024 Protein [Mass/Vol] 8.2 g/dL 5.9-8.4 [facility] Total protein 8.2 g/dL 5.9-8.4 [facility] Urea nitrogen [Mass/Vol]Orde red By: Zack Card on 09-05-2024 Serum or plasma urea nitrogen measurement (mass/volume) 14 mg/dL 09-20 [facility] White blood cell (WBC) count Ordered By: Zack Card on 09-05-2024 WBC (Bld) [#/Vol] 9.9 10*3/uL 4.4-11.0 [facility] White blood cell (WBC) count 9.9 K/mm3 4.4-11.0 [facility] Basic Metabolic Profile (BMP )on 09-04-2024 BUN Normal - [facility] Comment on above: Result Comment: Canc elled via OM: Order cancelled - Patient discharged Performed By: #### L 500.2500, L100.0100 ####[facility] [address] [place], [address] BUN/CRE Normal 10-20 [facility] Comment on above: Result Comment: Canc elled via OM: Order cancelled - Patient discharged Performed By: #### L 500.2500, L100.0100 ####[facility] [address] [place], [address] Calcium Normal 7.6-11.0 [facility] Comment on above: Result Comment: Canc elled via OM: Order cancelled - Patient discharged Performed By: #### L 500.2500, L100.0100 ####[facility] [address] [place], [address] CL Normal 98-108 [facility] Comment on above: Result Comment: Canc elled via OM: Order cancelled - Patient discharged Performed By: #### L 500.2500, L100.0100 ####[facility] [address] [place], [address] CO2 Normal 21.0-32.0 [facility] Comment on above: Result Comment: Canc elled via OM: Order cancelled - Patient discharged Performed By: #### L 500.2500, L100.0100 ####[facility] [address] [place], [address] CREAT,SERUM Normal 0.70-1.20 [facility] Comment on above: Result Comment: Canc elled via OM: Order cancelled - Patient discharged Performed By: #### L 500.2500, L100.0100 ####[facility] [address] [place], [address] eGFR Normal >60 [facility] Comment on above: Result Comment: Canc elled via OM: Order cancelled - Patient discharged Performed By: #### L 500.2500, L100.0100 ####[facility] [address] [place], [address] GAP Normal 5-15 [facility] Comment on above: Result Comment: Canc elled via OM: Order cancelled - Patient discharged Performed By: #### L 500.2500, L100.0100 ####[facility] [address] [place], [address] GLU Normal 70-99 [facility] Comment on above: Result Comment: Canc elled via OM: Order cancelled - Patient discharged Performed By: #### L 500.2500, L100.0100 ####[facility] [address] [place], [address] Potassium Normal 3.3-5.1 [facility] Comment on above: Result Comment: Canc elled via OM: Order cancelled - Patient discharged Performed By: #### L 500.2500, L100.0100 ####[facility] [address] [place], [address] Basic Metabolic Profile (BMP) Normal 133-145 [facility] Comment on above: Result Comment: Canc elled via OM: Order cancelled - Patient discharged Performed By: #### L 500.2500, L100.0100 ####[facility] [address] [place], [address] CBC W/Diff, Automatedon 04-0 Absolute Neut Normal 2.0-7.7 [facility] Comment on above: Result Comment: Canc elled via OM: Order cancelled - Patient discharged Performed By: #### L 500.2500, L100.0100 ####[facility] [address] [place], [address] HCT Normal 37-47 [facility] Comment on above: Result Comment: Canc elled via OM: Order cancelled - Patient discharged Performed By: #### L 500.2500, L100.0100 ####[facility] [address] [place], [address] HGB Normal 12.0-15.0 [facility] Comment on above: Result Comment: Canc elled via OM: Order cancelled - Patient discharged Performed By: #### L 500.2500, L100.0100 ####[facility] [address] [place], [address] MCH Normal 27.0-32.0 [facility] Comment on above: Result Comment: Canc elled via OM: Order cancelled - Patient discharged Performed By: #### L 500.2500, L100.0100 ####[facility] [address] [place], [address] MCHC Normal 32-36 [facility] Comment on above: Result Comment: Canc elled via OM: Order cancelled - Patient discharged Performed By: #### L 500.2500, L100.0100 ####[facility] [address] [place], [address] MCV Normal 81-99 [facility] Comment on above: Result Comment: Canc elled via OM: Order cancelled - Patient discharged Performed By: #### L 500.2500, L100.0100 ####[facility] [address] [place], [address] NEUT% Normal 47-70 [facility] Comment on above: Result Comment: Canc elled via OM: Order cancelled - Patient discharged Performed By: #### L 500.2500, L100.0100 ####[facility] [address] [place], [address] PLT Normal 150-450 [facility] Comment on above: Result Comment: Canc elled via OM: Order cancelled - Patient discharged Performed By: #### L 500.2500, L100.0100 ####[facility] [address] [place], [address] RBC Normal 4.2-5.4 [facility] Comment on above: Result Comment: Canc elled via OM: Order cancelled - Patient discharged Performed By: #### L 500.2500, L100.0100 ####[facility] [address] [place], [address] RDW CV Normal 11.6-14.6 [facility] Comment on above: Result Comment: Canc elled via OM: Order cancelled - Patient discharged Performed By: #### L 500.2500, L100.0100 ####[facility] [address] [place], [address] RDW SD Normal 35.1-43.9 [facility] Comment on above: Result Comment: Canc elled via OM: Order cancelled - Patient discharged Performed By: #### L 500.2500, L100.0100 ####[facility] [address] [place], [address] WBC Normal 4.4-11.0 [facility] Comment on above: Result Comment: Canc elled via OM: Order cancelled - Patient discharged Performed By: #### L 500.2500, L100.0100 ####[facility] [address] [place], [address] Basic Metabolic Profile (BMP )on 09-03-2024 BUN Normal 4-19 [facility] Comment on above: Result Comment: Canc elled via OM: Order cancelled - Patient discharged Performed By: #### L 500.2500, L100.0100 ####[facility] [address] [place], [address] BUN/CRE Normal 10-20 [facility] Comment on above: Result Comment: Canc elled via OM: Order cancelled - Patient discharged Performed By: #### L 500.2500, L100.0100 ####[facility] [address] [place], [address] Calcium Normal 7.6-11.0 [facility] Comment on above: Result Comment: Canc elled via OM: Order cancelled - Patient discharged Performed By: #### L 500.2500, L100.0100 ####[facility] [address] [place], [address] CL Normal 98-108 [facility] Comment on above: Result Comment: Canc elled via OM: Order cancelled - Patient discharged Performed By: #### L 500.2500, L100.0100 ####[facility] [address] [place], [address] CO2 Normal 21.0-32.0 [facility] Comment on above: Result Comment: Canc elled via OM: Order cancelled - Patient discharged Performed By: #### L 500.2500, L100.0100 ####[facility] [address] [place], [address] CREAT,SERUM Normal 0.70-1.20 [facility] Comment on above: Result Comment: Canc elled via OM: Order cancelled - Patient discharged Performed By: #### L 500.2500, L100.0100 ####[facility] [address] [place], [address] eGFR Normal >60 [facility] Comment on above: Result Comment: Canc elled via OM: Order cancelled - Patient discharged Performed By: #### L 500.2500, L100.0100 ####[facility] [address] [place], [address] GAP Normal 5-15 [facility] Comment on above: Result Comment: Canc elled via OM: Order cancelled - Patient discharged Performed By: #### L 500.2500, L100.0100 ####[facility] [address] [place], [address] GLU Normal 70-99 [facility] Comment on above: Result Comment: Canc elled via OM: Order cancelled - Patient discharged Performed By: #### L 500.2500, L100.0100 ####[facility] [address] [place], [address] Potassium Normal 3.3-5.1 [facility] Comment on above: Result Comment: Canc elled via OM: Order cancelled - Patient discharged Performed By: #### L 500.2500, L100.0100 ####[facility] [address] [place], [address] Basic Metabolic Profile (BMP) Normal 133-145 [facility] Comment on above: Result Comment: Canc elled via OM: Order cancelled - Patient discharged Performed By: #### L 500.2500, L100.0100 ####[facility] [address] [place], [address] CBC W/Diff, Automatedon 04-0 Absolute Neut Normal 2.0-7.7 [facility] Comment on above: Result Comment: Canc elled via OM: Order cancelled - Patient discharged Performed By: #### L 500.2500, L100.0100 ####[facility] [address] [place], [address] HCT Normal 37-47 [facility] Comment on above: Result Comment: Canc elled via OM: Order cancelled - Patient discharged Performed By: #### L 500.2500, L100.0100 ####[facility] [address] [place], [address] HGB Normal 12.0-15.0 [facility] Comment on above: Result Comment: Canc elled via OM: Order cancelled - Patient discharged Performed By: #### L 500.2500, L100.0100 ####[facility] [address] [place], [address] MCH Normal 27.0-32.0 [facility] Comment on above: Result Comment: Canc elled via OM: Order cancelled - Patient discharged Performed By: #### L 500.2500, L100.0100 ####[facility] [address] [place], [address] MCHC Normal 32-36 [facility] Comment on above: Result Comment: Canc elled via OM: Order cancelled - Patient discharged Performed By: #### L 500.2500, L100.0100 ####[facility] [address] [place], [address] MCV Normal 81-99 [facility] Comment on above: Result Comment: Canc elled via OM: Order cancelled - Patient discharged Performed By: #### L 500.2500, L100.0100 ####[facility] [address] [place], [address] NEUT% Normal 47-70 [facility] Comment on above: Result Comment: Canc elled via OM: Order cancelled - Patient discharged Performed By: #### L 500.2500, L100.0100 ####[facility] [address] [place], [address] PLT Normal 150-450 [facility] Comment on above: Result Comment: Canc elled via OM: Order cancelled - Patient discharged Performed By: #### L 500.2500, L100.0100 ####[facility] [address] [place], [address] RBC Normal 4.2-5.4 [facility] Comment on above: Result Comment: Canc elled via OM: Order cancelled - Patient discharged Performed By: #### L 500.2500, L100.0100 ####[facility] [address] [place], [address] RDW CV Normal 11.6-14.6 [facility] Comment on above: Result Comment: Canc elled via OM: Order cancelled - Patient discharged Performed By: #### L 500.2500, L100.0100 ####[facility] [address] [place], [address] RDW SD Normal 35.1-43.9 [facility] Comment on above: Result Comment: Canc elled via OM: Order cancelled - Patient discharged Performed By: #### L 500.2500, L100.0100 ####[facility] [address] [place], [address] WBC Normal 4.4-11.0 [facility] Comment on above: Result Comment: Canc elled via OM: Order cancelled - Patient discharged Performed By: #### L 500.2500, L100.0100 ####[facility] [address] [place], [address] Absolute lymphocyte countOrd ered By: Latricia Aaron on 09-02-2024 Lymphocytes Auto (Unsp spec) [#/Vol] 1.33 10*3/uL 0.83-4.51 [facility] Absolute neutrophil countOrd ered By: Latricia Aaron on 09-02-2024 Absolute neutrophil count 7.4 X10^3/uL 2.0-7.7 [facility] Anion gap [Moles/Vol]Ordered By: Latricia Aaron on 09-02-2024 Anion gap in Serum or Plasma 14 5-15 [facility] Anion gap in Serum or Plasma Ordered By: Latricia Aaron on 09-02-2024 Anion gap [Moles/Vol] 14 mmol/L 10-16 [facility] Automated lymphocyte count a s percentage of total leukocytesOrdered By: Latricia Aaron on 09-02-2024 Lymphocytes/100 WBC Auto (Unsp spec) 14.4 % Low 19-41 [facility] BUN/creatinine ratioOrdered By: Latricia Aaron on 09-02-2024 Urea nitrogen/Creatinine [Mass ratio] 22.6 mg/mg High 10-20 [facility] BUN/creatinine ratio 22.6 RATIO High 10-20 [facility] Basic Metabolic Profile (BMP )on 09-02-2024 BUN/CRE 22.6 RATIO High 10-20 [facility] Comment on above: Performed By: #### L 500.2500, L501.5200, L501.2300, L100.0100 ####[facility] [address] [place], [address] ECRCL 105.77 ml/min Normal 50-250 [facility] Comment on above: Performed By: #### L 500.2500, L501.5200, L501.2300, L100.0100 ####[facility] [address] [place], [address] GAP 14 Normal -15 [facility] Comment on above: Performed By: #### L 500.2500, L501.5200, L501.2300, L100.0100 ####[facility] [address] [place], [address] Potassium [Moles/Vol] 3.9 mmol/L Normal 3.3-5.1 [facility] Comment on above: Performed By: #### L 500.2500, L501.5200, L501.2300, L100.0100 ####[facility] [address] [place], [address] Basophil percentageOrdered B y: Latricia Aaron on 09-02-2024 Basophils/100 WBC (Bld) 0.3 % 0-1 [facility] Basophil percentage 0.3 % 0-1 [facility] Bedside Glucoseon 09-02-2024 FINGERSTICK GLU 229 mg/dL High [address] [place] [address] Comment on above: Result Comment: TALIA GEMENT OF PATIENT CARE PER NURSING PROTOCOL Performed By: #### L 501.080 ####[facility] [address] [place], [address] FINGERSTICK GLU 228 mg/dL High [address] [place] [address] Comment on above: Result Comment: TALIA GEMENT OF PATIENT CARE PER NURSING PROTOCOL Performed By: #### L 501.080 ####[facility] [address] [place], [address] FINGERSTICK GLU 248 mg/dL High [address] [place] [address] Comment on above: Result Comment: TALIA GEMENT OF PATIENT CARE PER NURSING PROTOCOL Performed By: #### L 501.080 ####[facility] [address] [place], [address] CBC W/Diff, Automatedon 04- Absolute Lymph 1.33 X10 3/uL Normal 0.83-4.51 [facility] Comment on above: Performed By: #### L 500.2500, L501.5200, L501.2300, L100.0100 ####[facility] [address] [place], [address] Absolute Neut 7.4 X10 3/uL Normal 2.0-7.7 [facility] Comment on above: Performed By: #### L 500.2500, L501.5200, L501.2300, L100.0100 ####[facility] [address] [place], [address] Basophils/100 WBC (Bld) 0.3 % Normal 0-1 [facility] Comment on above: Performed By: #### L 500.2500, L501.5200, L501.2300, L100.0100 ####[facility] [address] [place], [address] Eosinophils/100 WBC (Bld) 0.2 % Normal 0-5 [facility] Comment on above: Performed By: #### L 500.2500, L501.5200, L501.2300, L100.0100 ####[facility] [address] [place], [address] Erythrocyte distribution width (RBC) [Ratio] 13.8 % Normal 11.6-14.6 [facility] Comment on above: Performed By: #### L 500.2500, L501.5200, L501.2300, L100.0100 ####[facility] [address] [place], [address] Hematocrit (Bld) [Volume fraction] 42.7 % Normal 37-47 [facility] Comment on above: Performed By: #### L 500.2500, L501.5200, L501.2300, L100.0100 ####[facility] [address] [place], [address] Hemoglobin (Bld) [Mass/Vol] 14.0 g/dL Normal 12.0-15.0 [facility] Comment on above: Performed By: #### L 500.2500, L501.5200, L501.2300, L100.0100 ####[facility] [address] [place], [address] IG% 0.400 Normal 0.0-0.9 [facility] Comment on above: Result Comment: IG% - Immature Granulocytes (promyelocytes, myelocytes andmetamyelocytes) > 1% indicates that a LEFT SHIFT is Present. Performed By: #### L 500.2500, L501.5200, L501.2300, L100.0100 ####[facility] [address] [place], [address] Lymphocytes/100 WBC (Bld) 14.4 % Low 19-41 [facility] Comment on above: Performed By: #### L 500.2500, L501.5200, L501.2300, L100.0100 ####[facility] [address] [place], [address] MCH (RBC) [Entitic mass] 27.5 pg Normal 27.0-32.0 [facility] Comment on above: Performed By: #### L 500.2500, L501.5200, L501.2300, L100.0100 ####[facility] [address] [place], [address] MCHC (RBC) [Mass/Vol] 32.8 g/dL Normal 32-36 [facility] Comment on above: Performed By: #### L 500.2500, L501.5200, L501.2300, L100.0100 ####[facility] [address] [place], [address] MCV (RBC) [Entitic vol] 83.7 fL Normal 81-99 [facility] Comment on above: Performed By: #### L 500.2500, L501.5200, L501.2300, L100.0100 ####[facility] [address] [place], [address] Monocytes/100 WBC (Bld) 4.0 % Normal 0-10 [facility] Comment on above: Performed By: #### L 500.2500, L501.5200, L501.2300, L100.0100 ####[facility] [address] [place], [address] Neutrophils/100 WBC (Bld) 80.7 % High 47-70 [facility] Comment on above: Performed By: #### L 500.2500, L501.5200, L501.2300, L100.0100 ####[facility] [address] [place], [address] Nucleated RBC (Bld) [#/Vol] 0 10*3/uL Normal 0-5 [facility] Comment on above: Performed By: #### L 500.2500, L501.5200, L501.2300, L100.0100 ####[facility] [address] [place], [address] Platelet mean volume (Bld) [Entitic vol] 8.8 fL Normal 6.2-12.0 [facility] Comment on above: Performed By: #### L 500.2500, L501.5200, L501.2300, L100.0100 ####[facility] [address] [place], [address] Platelets (Bld) [#/Vol] 269 10*3/uL Normal 150-450 [facility] Comment on above: Performed By: #### L 500.2500, L501.5200, L501.2300, L100.0100 ####[facility] [address] [place], [address] RBC (Bld) [#/Vol] 5.10 10*6/uL Normal 4.2-5.4 [facility] Comment on above: Performed By: #### L 500.2500, L501.5200, L501.2300, L100.0100 ####[facility] [address] [place], [address] RDW SD 42.4 fl Normal 35.1-43.9 [facility] Comment on above: Performed By: #### L 500.2500, L501.5200, L501.2300, L100.0100 ####[facility] [address] [place], [address] WBC (Bld) [#/Vol] 9.2 10*3/uL Normal 4.4-11.0 [facility] Comment on above: Performed By: #### L 500.2500, L501.5200, L501.2300, L100.0100 ####[facility] [address] [place], [address] Calcium [Mass/Vol]Ordered By : Latricia Aaron on 09-02-2024 Serum or plasma calcium measurement (mass/volume) 9.4 mg/dL 7.6-11.0 [facility] Carbon dioxide, total [Moles /volume] in Central venous bloodOrdered By: Latricia Aaron on 09-02-2024 CO2 [Moles/Vol] 20.0 mmol/L Low 21.0-32.0 [facility] Comment on above: Performed By: #### L 500.2500, L501.5200, L501.2300, L100.0100 ####[facility] [address] [place], [address] Carbon dioxide, total [Moles/volume] in Central venous blood 20.0 mmol/L Low 21.0-32.0 [facility] Chloride assayOrdered By: Tristan Aaron on 09-02-2024 Chloride [Moles/Vol] 101 mmol/L Normal 98-108 [facility] Comment on above: Performed By: #### L 500.2500, L501.5200, L501.2300, L100.0100 ####[facility] [address] [place], [address] Chloride assay 101 mmol/L 98-108 [facility] Creatinine [Mass/Vol]Ordered By: Latricia Aaron on 09-02-2024 Serum creatinine measurement (mass/volume) 0.67 mg/dL Low 0.70-1.20 [facility] Eosinophil percentageOrdered By: Latricia Aaron on 09-02-2024 Eosinophils/100 WBC (Bld) 0.2 % 0-5 [facility] Eosinophil percentage 0.2 % 0-5 [facility] Erythrocyte distribution wid th (RBC) [Ratio]Ordered By: Latricia Aaron on 09-02-2024 Erythrocyte distribution width ratio 13.8 % 11.6-14.6 [facility] Erythrocyte distribution wid th ratioOrdered By: Latricia Aaron on 09-02-2024 Erythrocyte distribution width (RBC) [Ratio] 13.8 % 11.6-14.6 [facility] Erythrocyte distribution wid th standard deviationOrdered By: Latricia Aaron on 09-02-2024 Erythrocyte distribution width (RBC) [Ratio] 42.4 fl 35.1-43.9 [facility] Erythrocyte distribution width standard deviation 42.4 fl 35.1-43.9 [facility] Estimation of creatinine sylvain aranceOrdered By: Latricia Aaron on 09-02-2024 Estimation of creatinine clearance 105.77 ml/min 50-250 [facility] GFR/1.73 sq M.predicted estephanie g non-blacks MDRD (S/P/Bld) [Vol rate/Area]Ordered By: Latricia Aaron on 09-02-2024 Glomerular filtration rate (GFR) estimation/1.73 sq m using serum, plasma, or whole b 104 >60 [facility] Glomerular filtration rate ( GFR) estimation/1.73 sq m using serum, plasma, or whole bOrdered By: Latricia Aaron on 09-02-2024 GFR/1.73 sq M.predicted among non-blacks MDRD (S/P/Bld) [Vol rate/Area] 104 mL/min/{1.73_m2} Normal >60 [facility] Comment on above: Result Comment: mL/m in/1.73m2 CKD-EPI Creatinine Equation (2020) Performed By: #### L 500.2500, L501.5200, L501.2300, L100.0100 ####[facility] [address] [place], [address] Glucose [Mass/Vol]Ordered By : Latricia Aaron on 09-02-2024 Serum glucose measurement (mass/volume) 242 mg/dL High 70-99 [facility] Glucose measurement at bedsi deOrdered By: Latricia Aaron on 09-02-2024 Glucose [Mass/Vol] 229 mg/dL High 74-106 [facility] Glucose measurement at bedside 229 mg/dL High 74-106 [facility] Hematocrit Auto (Bld) [Volum e fraction]Ordered By: Latricia Aaron on 09-02-2024 Hematocrit (Bld) [Volume fraction] 42.7 % 37-47 [facility] Automated blood hematocrit (percentage) 42.7 % 37-47 [facility] Hemoglobin measurementOrdere d By: Latricia Aaron on 09-02-2024 Hemoglobin (Bld) [Mass/Vol] 14.0 g/dL 12.0-15.0 [facility] Hemoglobin measurement 14.0 g/dL 12.0-15.0 [facility] Immature granulocytes/100 WB C Auto (Bld)Ordered By: Latricia Aaron on 09-02-2024 Immature granulocytes/100 WBC (Bld) 0.400 % 0.0-0.9 [facility] Automated immature granulocyte percentage 0.400 % 0.0-0.9 [facility] Lymphocytes Auto (Unsp spec) [#/Vol]Ordered By: Latricia Aaron on 09-02-2024 Absolute lymphocyte count 1.33 X10^3/uL 0.83-4.51 [facility] Lymphocytes/100 WBC Auto (Un sp spec)Ordered By: Latricia Aaron on 09-02-2024 Automated lymphocyte count as percentage of total leukocytes 14.4 % Low 19-41 [facility] MCV (RBC) [Entitic vol]Order ed By: Latricia Aaron on 09-02-2024 MCV (mean corpuscular volume) determination 83.7 fL 81-99 [facility] MCV (mean corpuscular volume ) determinationOrdered By: Latricia Aaron on 09-02-2024 MCV (RBC) [Entitic vol] 83.7 fL 81-99 [facility] Magnesiumon 09-02-2024 Magnesium [Mass/Vol] 2.0 mg/dL Normal 1.5-2.2 [facility] Comment on above: Performed By: #### L 500.2500, L501.5200, L501.2300, L100.0100 ####[facility] [address] [place], [address] Magnesium (Unsp spec) [Mass/ Vol]Ordered By: Latricia Aaron on 09-02-2024 Magnesium measurement (mass/volume) 2.0 mg/dL 1.5-2.2 [facility] Magnesium measurement (mass/ volume)Ordered By: Latricia Aaron on 09-02-2024 Magnesium (Unsp spec) [Mass/Vol] 2.0 mg/dL 1.5-2.2 [facility] Mean corpuscular hemoglobin (MCH) determinationOrdered By: Latricia Aaron on 09-02-2024 MCH (RBC) [Entitic mass] 27.5 pg 27.0-32.0 [facility] Mean corpuscular hemoglobin (MCH) determination 27.5 pg 27.0-32.0 [facility] Mean corpuscular hemoglobin concentration (MCHC) determinationOrdered By: Latricia Aaron on 09-02-2024 Mean corpuscular hemoglobin concentration (MCHC) determination 32.8 g/dL 32-36 [facility] Mean platelet volume determi nationOrdered By: Latricia Aaron on 09-02-2024 Mean platelet volume determination 8.8 fl 6.2-12.0 [facility] Monocyte percentageOrdered B y: Latricia Aaron on 09-02-2024 Monocytes/100 WBC (Bld) 4.0 % 0-10 [facility] Monocyte percentage 4.0 % 0-10 [facility] Neutrophil percentageOrdered By: Latricia Aaron on 09-02-2024 Neutrophils/100 WBC (Bld) 80.7 % High 47-70 [facility] Neutrophil percentage 80.7 % High 47-70 [facility] Nucleated red blood cell per centageOrdered By: Latricia Aaron on 09-02-2024 Nucleated red blood cell percentage 0 % 0-5 [facility] Phosphoruson 09-02-2024 Phosphate [Mass/Vol] 2.1 mg/dL Low 2.7-4.5 [facility] Comment on above: Performed By: #### L 500.2500, L501.5200, L501.2300, L100.0100 ####[facility] [address] [place], [address] Platelet countOrdered By: Tristan Aaron on 09-02-2024 Platelets (Bld) [#/Vol] 269 10*3/uL 150-450 [facility] Platelet count 269 K/mm3 150-450 [facility] Potassium (Unsp spec) [Mass/ Vol]Ordered By: Latricia Aaron on 09-02-2024 Potassium measurement (mass/volume) 3.9 mmol/L 3.3-5.1 [facility] Potassium measurement (mass/ volume)Ordered By: Latricia Aaron on 09-02-2024 Potassium (Unsp spec) [Mass/Vol] 3.9 mmol/L 3.3-5.1 [facility] RBC Auto (Bld) [#/Vol]Ordere d By: Latricia Aaron on 09-02-2024 RBC (Bld) [#/Vol] 5.10 10*6/uL 4.2-5.4 [facility] Automated blood erythrocyte count 5.10 M/mm3 4.2-5.4 [facility] Serum creatinine measurement (mass/volume)Ordered By: Latricia Aaron on 09-02-2024 Creatinine [Mass/Vol] 0.67 mg/dL Low 0.70-1.20 [facility] Comment on above: Performed By: #### L 500.2500, L501.5200, L501.2300, L100.0100 ####[facility] [address] [place], [place], [address] Serum glucose measurement (m ass/volume)Ordered By: Latricia Aaron on 09-02-2024 Glucose [Mass/Vol] 242 mg/dL High 70-99 [facility] Comment on above: Performed By: #### L 500.2500, L501.5200, L501.2300, L100.0100 ####[facility] [address] [place], [address] Serum or plasma calcium xiomara urement (mass/volume)Ordered By: Latricia Aaron on 09-02-2024 Calcium [Mass/Vol] 9.4 mg/dL Normal 7.6-11.0 [facility] Comment on above: Performed By: #### L 500.2500, L501.5200, L501.2300, L100.0100 ####[facility] [address] [place], [address] Serum or plasma urea nitroge n measurement (mass/volume)Ordered By: Latricia Aaron on 09-02-2024 Urea nitrogen [Mass/Vol] 15 mg/dL Normal 4-19 [facility] Comment on above: Performed By: #### L 500.2500, L501.5200, L501.2300, L100.0100 ####[facility] [address] [place], [address] Serum phosphorus measurement Ordered By: Latricia Aaron on 09-02-2024 Serum phosphorus measurement 2.1 mg/dL Low 2.7-4.5 [facility] Sodium levelOrdered By: Neymar Aaron on 09-02-2024 Sodium [Moles/Vol] 136 mmol/L Normal 133-145 [facility] Comment on above: Performed By: #### L 500.2500, L501.5200, L501.2300, L100.0100 ####[facility] [address], [address] Sodium level 136 mmol/L 133-145 [facility] Urea nitrogen [Mass/Vol]Orde red By: Latricia Aaron on 09-02-2024 Serum or plasma urea nitrogen measurement (mass/volume) 15 mg/dL - [facility] White blood cell (WBC) count Ordered By: Latricia Aaron on 09-02-2024 WBC (Bld) [#/Vol] 9.2 10*3/uL 4.4-11.0 [facility] White blood cell (WBC) count 9.2 K/mm3 4.4-11.0 [facility] Basic Metabolic Profile (BMP )on 09-01-2024 BUN/CRE 27.7 RATIO High 10-20 [facility] Comment on above: Performed By: #### L 500.2500, L100.0500 ####[facility] [address] [place], [address] Calcium [Mass/Vol] 8.7 mg/dL Normal 7.6-11.0 [facility] Comment on above: Performed By: #### L 500.2500, L100.0500 ####[facility] [address] [place], [address] Chloride [Moles/Vol] 110 mmol/L High 98-108 [facility] Comment on above: Performed By: #### L 500.2500, L100.0500 ####[facility] [address] [place], [address] CO2 [Moles/Vol] 19.8 mmol/L Low 21.0-32.0 [facility] Comment on above: Performed By: #### L 500.2500, L100.0500 ####[facility] [address] [place], [address] Creatinine [Mass/Vol] 0.77 mg/dL Normal 0.70-1.20 [facility] Comment on above: Performed By: #### L 500.2500, L100.0500 ####[facility] [address] [place], [address] ECRCL 91.72 ml/min Normal 50-250 [facility] Comment on above: Performed By: #### L 500.2500, L100.0500 ####[facility] [address] [place], [address] GAP 8 Normal 5-15 [facility] Comment on above: Performed By: #### L 500.2500, L100.0500 ####[facility] [address] [place], [address] GFR/1.73 sq M.predicted among non-blacks MDRD (S/P/Bld) [Vol rate/Area] 93 mL/min/{1.73_m2} Normal >60 [facility] Comment on above: Result Comment: mL/m in/1.73m2 CKD-EPI Creatinine Equation (2020) Performed By: #### L 500.2500, L100.0500 ####[facility] [address] [place], [address] Glucose [Mass/Vol] 93 mg/dL Normal 70-99 [facility] Comment on above: Performed By: #### L 500.2500, L100.0500 ####[facility] [address] [place], [address] Potassium [Moles/Vol] 4.0 mmol/L Normal 3.3-5.1 [facility] Comment on above: Performed By: #### L 500.2500, L100.0500 ####[facility] [address] [place], [address] Sodium [Moles/Vol] 138 mmol/L Normal 133-145 [facility] Comment on above: Performed By: #### L 500.2500, L100.0500 ####[facility] [address] [place], [address] Urea nitrogen [Mass/Vol] 21 mg/dL High 4-19 [facility] Comment on above: Performed By: #### L 500.2500, L100.0500 ####[facility] [address] [place], [address] Bedside Glucoseon 09-01-2024 FINGERSTICK GLU 162 mg/dL High 74-106 [facility] Comment on above: Result Comment: TALIA GEMENT OF PATIENT CARE PER NURSING PROTOCOL Performed By: #### L 501.080 ####[facility] [address] [place], [address] FINGERSTICK GLU 142 mg/dL High 74-106 [facility] Comment on above: Result Comment: TALIA GEMENT OF PATIENT CARE PER NURSING PROTOCOL Performed By: #### L 501.080 ####[facility] [address] [place], [address] FINGERSTICK GLU 58 mg/dL Low 74-106 [facility] Comment on above: Result Comment: TALIA GEMENT OF PATIENT CARE PER NURSING PROTOCOL Performed By: #### L 501.080 ####[facility] [address] [place], [address] FINGERSTICK GLU 80 mg/dL Normal 74-106 [facility] Comment on above: Result Comment: TALIA GEMENT OF PATIENT CARE PER NURSING PROTOCOL Performed By: #### L 501.080 ####[facility] [address] [place], [address] FINGERSTICK GLU 73 mg/dL Low 74-106 [facility] Comment on above: Result Comment: TALIA GEMENT OF PATIENT CARE PER NURSING PROTOCOL Performed By: #### L 501.080 ####[facility] [address] [place], [address] FINGERSTICK GLU 139 mg/dL High 74-106 [facility] Comment on above: Result Comment: TALIA GEMENT OF PATIENT CARE PER NURSING PROTOCOL Performed By: #### L 501.080 ####[facility] [address] [place], [address] FINGERSTICK GLU 90 mg/dL Normal 74-106 [facility] Comment on above: Result Comment: TALIA GEMENT OF PATIENT CARE PER NURSING PROTOCOL Performed By: #### L 501.080 ####[facility] [address] [place], [address] CBC-Complete Blood Cnt No Di ffon 09-01-2024 Erythrocyte distribution width (RBC) [Ratio] 14.2 % Normal 11.6-14.6 [facility] Comment on above: Performed By: #### L 500.2500, L100.0500 ####[facility] [address] [place], [address] Hematocrit (Bld) [Volume fraction] 32.6 % Low 37-47 [facility] Comment on above: Performed By: #### L 500.2500, L100.0500 ####[facility] [address] [place], [address] Hemoglobin (Bld) [Mass/Vol] 10.7 g/dL Low 12.0-15.0 [facility] Comment on above: Performed By: #### L 500.2500, L100.0500 ####[facility] [address] [place], [address] MCH (RBC) [Entitic mass] 28.2 pg Normal 27.0-32.0 [facility] Comment on above: Performed By: #### L 500.2500, L100.0500 ####[facility] [address] [place], [address] MCHC (RBC) [Mass/Vol] 32.8 g/dL Normal 32-36 [facility] Comment on above: Performed By: #### L 500.2500, L100.0500 ####[facility] [address] [place], [address] MCV (RBC) [Entitic vol] 85.8 fL Normal 81-99 [facility] Comment on above: Performed By: #### L 500.2500, L100.0500 ####[facility] [address] [place], [address] Platelet mean volume (Bld) [Entitic vol] 9.0 fL Normal 6.2-12.0 [facility] Comment on above: Performed By: #### L 500.2500, L100.0500 ####[facility] [address] [place], [address] Platelets (Bld) [#/Vol] 238 10*3/uL Normal 150-450 [facility] Comment on above: Performed By: #### L 500.2500, L100.0500 ####[facility] [address] [place], [address] RBC (Bld) [#/Vol] 3.80 10*6/uL Low 4.2-5.4 [facility] Comment on above: Performed By: #### L 500.2500, L100.0500 ####[facility] [address] [place], [address] RDW SD 44.1 fl High 35.1-43.9 [facility] Comment on above: Performed By: #### L 500.2500, L100.0500 ####[facility] [address] [place], [address] WBC (Bld) [#/Vol] 6.6 10*3/uL Normal 4.4-11.0 [facility] Comment on above: Performed By: #### L 500.2500, L100.0500 ####[facility] [address] [place], [address] Echo Complete W/ Contraston 09-01-2024 Echo Complete W/ Contrast Normal [facility] Echocardiogram study reportO rdered By: Alli Brito on 09-01-2024 Study report [facility] Work Phone: Bedside Glucoseon 08-31-2024 FINGERSTICK GLU 228 mg/dL High 74-106 [facility] Comment on above: Result Comment: TALIA GEMENT OF PATIENT CARE PER NURSING PROTOCOL Performed By: #### L 501.080 ####[facility] [address] [place], [address] FINGERSTICK GLU 129 mg/dL High [facility]106 [facility] Comment on above: Result Comment: TALIA GEMENT OF PATIENT CARE PER NURSING PROTOCOL Performed By: #### L 501.080 ####[facility] [address] [place], [address] FINGERSTICK GLU 152 mg/dL High -106 [facility] Comment on above: Result Comment: TALIA GEMENT OF PATIENT CARE PER NURSING PROTOCOL Performed By: #### L 501.080 ####[facility] [address] [place], [address] FINGERSTICK GLU 126 mg/dL High -[address] [place] [address] Comment on above: Result Comment: TALIA GEMENT OF PATIENT CARE PER NURSING PROTOCOL Performed By: #### L 501.080 ####[facility] [address] [place], [address] Bedside Glucoseon 08-30-2024 FINGERSTICK GLU 215 mg/dL High -[address] [place] [address] Comment on above: Result Comment: TALIA GEMENT OF PATIENT CARE PER NURSING PROTOCOL Performed By: #### L 501.080 ####[facility] [address] [place], [address] FINGERSTICK GLU 253 mg/dL High [address] [place] [address] Comment on above: Result Comment: TALIA GEMENT OF PATIENT CARE PER NURSING PROTOCOL Performed By: #### L 501.080 ####[facility] [address] [place], [address] FINGERSTICK GLU 152 mg/dL High [address] [place] [address] Comment on above: Result Comment: TALIA GEMENT OF PATIENT CARE PER NURSING PROTOCOL Performed By: #### L 501.080 ####[facility] [address] [place], [address] FINGERSTICK GLU 117 mg/dL High 74-106 [facility] Comment on above: Result Comment: TALIA GEMENT OF PATIENT CARE PER NURSING PROTOCOL Performed By: #### L 501.080 ####[facility] [address] [place], [address] FINGERSTICK GLU 318 mg/dL High 74-106 [facility] Comment on above: Result Comment: TALIA GEMENT OF PATIENT CARE PER NURSING PROTOCOL Performed By: #### L 501.080 ####[facility] [address] [place], [address] CDIFF (PCR)on 08-30-2024 CDIFF Normal [facility] Comment on above: Performed By: #### M 100.6796, M100.637 ####[facility] [address] [place], [address] ENTERIC PATHOGEN PANEL STOOL on 08-30-2024 EP PANEL Normal [facility] Comment on above: Performed By: #### M 100.6796, M100.637 ####[facility] [address] [place], [address] Basic Metabolic Profile (BMP )on 08-29-2024 BUN/CRE 32.2 RATIO High 10-20 [facility] Comment on above: Performed By: #### L 100.0100, L500.2500 ####[facility] [address] [place], [address] Calcium [Mass/Vol] 8.9 mg/dL Normal 7.6-11.0 [facility] Comment on above: Performed By: #### L 100.0100, L500.2500 ####[facility] [address] [place], [address] Chloride [Moles/Vol] 104 mmol/L Normal 98-108 [facility] Comment on above: Performed By: #### L 100.0100, L500.2500 ####[facility] [address] [place], [address] CO2 [Moles/Vol] 21.3 mmol/L Normal 21.0-32.0 [facility] Comment on above: Performed By: #### L 100.0100, L500.2500 ####[facility] [address] [place], [address] Creatinine [Mass/Vol] 0.80 mg/dL Normal 0.70-1.20 [facility] Comment on above: Performed By: #### L 100.0100, L500.2500 ####[facility] [address] [place], [address] ECRCL 88.59 ml/min Normal 50-250 [facility] Comment on above: Performed By: #### L 100.0100, L500.2500 ####[facility] [address] [place], [address] GAP 10 Normal 5-15 [facility] Comment on above: Performed By: #### L 100.0100, L500.2500 ####[facility] [address] [place], [address] GFR/1.73 sq M.predicted among non-blacks MDRD (S/P/Bld) [Vol rate/Area] 89 mL/min/{1.73_m2} Normal >60 [facility] Comment on above: Result Comment: mL/m in/1.73m2 CKD-EPI Creatinine Equation (2020) Performed By: #### L 100.0100, L500.2500 ####[facility] [address] [place], [address] Glucose [Mass/Vol] 104 mg/dL High 70-99 [facility] Comment on above: Performed By: #### L 100.0100, L500.2500 ####[facility] [address] [place], [address] Potassium [Moles/Vol] 3.7 mmol/L Normal 3.3-5.1 [facility] Comment on above: Performed By: #### L 100.0100, L500.2500 ####[facility] [address] [place], [address] Sodium [Moles/Vol] 135 mmol/L Normal 133-145 [facility] Comment on above: Performed By: #### L 100.0100, L500.2500 ####[facility] [address] [place], [address] Urea nitrogen [Mass/Vol] 26 mg/dL High 4-19 [facility] Comment on above: Performed By: #### L 100.0100, L500.2500 ####[facility] [address] [place], [address] Bedside Glucoseon 08-29-2024 FINGERSTICK GLU 160 mg/dL High 74-106 [facility] Comment on above: Result Comment: TALIA GEMENT OF PATIENT CARE PER NURSING PROTOCOL Performed By: #### L 501.080 ####[facility] [address] [place], [address] FINGERSTICK GLU 156 mg/dL High 74-106 [facility] Comment on above: Result Comment: TALIA GEMENT OF PATIENT CARE PER NURSING PROTOCOL Performed By: #### L 501.080 ####[facility] [address] [place], [address] FINGERSTICK GLU 93 mg/dL Normal 74-106 [facility] Comment on above: Result Comment: TALIA GEMENT OF PATIENT CARE PER NURSING PROTOCOL Performed By: #### L 501.080 ####[facility] [address] [place], [address] CBC W/Diff, Automatedon - Absolute Lymph 2.20 X10 3/uL Normal 0.83-4.51 [facility] Comment on above: Performed By: #### L 100.0100, L500.2500 ####[facility] [address] [place], [address] Absolute Neut 5.8 X10 3/uL Normal 2.0-7.7 [facility] Comment on above: Performed By: #### L 100.0100, L500.2500 ####[facility] [address] [place], [address] Basophils/100 WBC (Bld) 0.6 % Normal 0-1 [facility] Comment on above: Performed By: #### L 100.0100, L500.2500 ####[facility] [address] [place], [address] Eosinophils/100 WBC (Bld) 2.4 % Normal 0-5 [facility] Comment on above: Performed By: #### L 100.0100, L500.2500 ####[facility] [address] [place], [address] Erythrocyte distribution width (RBC) [Ratio] 14.0 % Normal 11.6-14.6 [facility] Comment on above: Performed By: #### L 100.0100, L500.2500 ####[facility] [address] [place], [address] Hematocrit (Bld) [Volume fraction] 33.7 % Low 37-47 [facility] Comment on above: Performed By: #### L 100.0100, L500.2500 ####[facility] [address] [place], [address] Hemoglobin (Bld) [Mass/Vol] 11.2 g/dL Low 12.0-15.0 [facility] Comment on above: Performed By: #### L 100.0100, L500.2500 ####[facility] [address] [place], [address] IG% 0.300 Normal 0.0-0.9 [facility] Comment on above: Result Comment: IG% - Immature Granulocytes (promyelocytes, myelocytes andmetamyelocytes) > 1% indicates that a LEFT SHIFT is Present. Performed By: #### L 100.0100, L500.2500 ####[facility] [address] [place], [address] Lymphocytes/100 WBC (Bld) 24.4 % Normal 19-41 [facility] Comment on above: Performed By: #### L 100.0100, L500.2500 ####[facility] [address] [place], [address] MCH (RBC) [Entitic mass] 28.2 pg Normal 27.0-32.0 [facility] Comment on above: Performed By: #### L 100.0100, L500.2500 ####[facility] [address] [place], [address] MCHC (RBC) [Mass/Vol] 33.2 g/dL Normal 32-36 [facility] Comment on above: Performed By: #### L 100.0100, L500.2500 ####[facility] [address] [place], [address] MCV (RBC) [Entitic vol] 84.9 fL Normal 81-99 [place] Comment on above: Performed By: #### L 100.0100, L500.2500 ####[facility] [address] [place], [address] Monocytes/100 WBC (Bld) 7.6 % Normal 0-10 [facility] Comment on above: Performed By: #### L 100.0100, L500.2500 ####[facility] [address] [place], [address] Neutrophils/100 WBC (Bld) 64.7 % Normal 47-70 [facility] Comment on above: Performed By: #### L 100.0100, L500.2500 ####[facility] [address] [place], [address] Nucleated RBC (Bld) [#/Vol] 0 10*3/uL Normal 0-5 [facility] Comment on above: Performed By: #### L 100.0100, L500.2500 ####[facility] [address] [place], [address] Platelet mean volume (Bld) [Entitic vol] 9.3 fL Normal 6.2-12.0 [facility] Comment on above: Performed By: #### L 100.0100, L500.2500 ####[facility] [address] [place], [address] Platelets (Bld) [#/Vol] 205 10*3/uL Normal 150-450 [facility] Comment on above: Performed By: #### L 100.0100, L500.2500 ####[facility] [address] [place], [address] RBC (Bld) [#/Vol] 3.97 10*6/uL Low 4.2-5.4 [facility] Comment on above: Performed By: #### L 100.0100, L500.2500 ####[facility] [address] [place], [address] RDW SD 43.4 fl Normal 35.1-43.9 [facility] Comment on above: Performed By: #### L 100.0100, L500.2500 ####[facility] [address] [place], [address] WBC (Bld) [#/Vol] 9.0 10*3/uL Normal 4.4-11.0 [facility] Comment on above: Performed By: #### L 100.0100, L500.2500 ####[facility] [address] [place], [address] Clostridium difficile detect ion by polymerase chain reactionOrdered By: Latricia Burdick on 08-29-2024 C. difficile DNA CRISSY+probe Ql (Unsp spec) [facility] ALP [Catalytic activity/Vol] Ordered By: Nicole Trujillo on 08-28-2024 Serum or plasma alkaline phosphatase measurement 115 U/L High 35-104 [facility] ALT [Catalytic activity/Vol] Ordered By: Nicole Trujillo on 08-28-2024 Serum or plasma alanine aminotransferase (ALT) measurement 11 U/L <35 [facility] Albumin [Mass/Vol]Ordered By : Nicole Trujillo on 08-28-2024 Serum or plasma albumin measurement (mass/volume) 3.2 g/dL Low 3.5-5.0 [facility] Albumin/Globulin [Mass ratio ]Ordered By: Nicole Trujillo on 08-28-2024 Serum or plasma albumin/globulin mass ratio 1.1 RATIO 0.9-2.4 [facility] Bedside Glucoseon 08-28-2024 FINGERSTICK GLU 182 mg/dL High 74-106 [facility] Comment on above: Result Comment: TALIA GEMENT OF PATIENT CARE PER NURSING PROTOCOL Performed By: #### L 501.080 ####[facility] [address] [place], [address] FINGERSTICK GLU 176 mg/dL High 74-106 [facility] Comment on above: Result Comment: TALIA GEMENT OF PATIENT CARE PER NURSING PROTOCOL Performed By: #### L 501.080 ####[facility] [address] [facility] [address] FINGERSTICK GLU 192 mg/dL High 74-106 [facility] Comment on above: Result Comment: TALIA GEMENT OF PATIENT CARE PER NURSING PROTOCOL Performed By: #### L 501.080 ####[facility] [address] [place], [address] FINGERSTICK GLU 157 mg/dL High 74-106 [facility] Comment on above: Result Comment: TALIA CHAMBERS OF PATIENT CARE PER NURSING PROTOCOL Performed By: #### L 501.080 ####[facility] [address] [place], [address] Bilirubin, totalOrdered By: Nicole Trujillo on 08-28-2024 Bilirubin [Mass/Vol] 0.53 mg/dL 0.00-1.30 [facility] Bilirubin, total 0.53 mg/dL 0.00-1.30 [facility] CBC W/Diff, Automatedon 08-03 Absolute Lymph 1.79 X10 3/uL Normal 0.83-4.51 [facility] Comment on above: Performed By: #### L 501.2300, L100.0100, L500.4050, L501.5200 ####[facility] [address] [place], [address] Absolute Neut 5.2 X10 3/uL Normal 2.0-7.7 [facility] Comment on above: Performed By: #### L 501.2300, L100.0100, L500.4050, L501.5200 ####[facility] [address] [place], [address] Basophils/100 WBC (Bld) 0.5 % Normal 0-1 [facility] Comment on above: Performed By: #### L 501.2300, L100.0100, L500.4050, L501.5200 ####[facility] [address] [place], [address] Eosinophils/100 WBC (Bld) 3.0 % Normal 0-5 [facility] Comment on above: Performed By: #### L 501.2300, L100.0100, L500.4050, L501.5200 ####[facility] [address] [place], [address] Erythrocyte distribution width (RBC) [Ratio] 14.3 % Normal 11.6-14.6 [facility] Comment on above: Performed By: #### L 501.2300, L100.0100, L500.4050, L501.5200 ####[facility] [address] [place], [address] Hematocrit (Bld) [Volume fraction] 34.8 % Low 37-47 [facility] Comment on above: Performed By: #### L 501.2300, L100.0100, L500.4050, L501.5200 ####[facility] [address] [place], [address] Hemoglobin (Bld) [Mass/Vol] 11.7 g/dL Low 12.0-15.0 [facility] Comment on above: Performed By: #### L 501.2300, L100.0100, L500.4050, L501.5200 ####[facility] [address] [place], [address] IG% 0.400 Normal 0.0-0.9 [facility] Comment on above: Result Comment: IG% - Immature Granulocytes (promyelocytes, myelocytes andmetamyelocytes) > 1% indicates that a LEFT SHIFT is Present. Performed By: #### L 501.2300, L100.0100, L500.4050, L501.5200 ####[facility] [address] [place], [address] Lymphocytes/100 WBC (Bld) 22.7 % Normal 19-41 [facility] Comment on above: Performed By: #### L 501.2300, L100.0100, L500.4050, L501.5200 ####[facility] [address] [place], [address] MCH (RBC) [Entitic mass] 27.8 pg Normal 27.0-32.0 [facility] Comment on above: Performed By: #### L 501.2300, L100.0100, L500.4050, L501.5200 ####[facility] [address] [place], [address] MCHC (RBC) [Mass/Vol] 33.6 g/dL Normal 32-36 [facility] Comment on above: Performed By: #### L 501.2300, L100.0100, L500.4050, L501.5200 ####[facility] [address] [place], [address] MCV (RBC) [Entitic vol] 82.7 fL Normal 81-99 [facility] Comment on above: Performed By: #### L 501.2300, L100.0100, L500.4050, L501.5200 ####[facility] [address] [place], [address] Monocytes/100 WBC (Bld) 6.7 % Normal 0-10 [facility] Comment on above: Performed By: #### L 501.2300, L100.0100, L500.4050, L501.5200 ####[facility] [address] [place], [address] Neutrophils/100 WBC (Bld) 66.7 % Normal 47-70 [facility] Comment on above: Performed By: #### L 501.2300, L100.0100, L500.4050, L501.5200 ####[facility] [address] [place], [address] Nucleated RBC (Bld) [#/Vol] 0.3 10*3/uL Normal 0-5 [facility] Comment on above: Performed By: #### L 501.2300, L100.0100, L500.4050, L501.5200 ####[facility] [address] [place], [address] Platelet mean volume (Bld) [Entitic vol] 9.8 fL Normal 6.2-12.0 [facility] Comment on above: Performed By: #### L 501.2300, L100.0100, L500.4050, L501.5200 ####[facility] [address] [place], [address] Platelets (Bld) [#/Vol] 203 10*3/uL Normal 150-450 [facility] Comment on above: Performed By: #### L 501.2300, L100.0100, L500.4050, L501.5200 ####[facility] [address] [place], [address] RBC (Bld) [#/Vol] 4.21 10*6/uL Normal 4.2-5.4 [facility] Comment on above: Performed By: #### L 501.2300, L100.0100, L500.4050, L501.5200 ####[facility] [address] [place], [address] RDW SD 42.4 fl Normal 35.1-43.9 [facility] Comment on above: Performed By: #### L 501.2300, L100.0100, L500.4050, L501.5200 ####[facility] [address] [place], [address] WBC (Bld) [#/Vol] 7.9 10*3/uL Normal 4.4-11.0 [facility] Comment on above: Performed By: #### L 501.2300, L100.0100, L500.4050, L501.5200 ####[facility] [address] [place], [address] Comprehensive Metabolic Prof [facility] 08-28-2024 Albumin [Mass/Vol] 3.2 g/dL Low 3.5-5.0 [facility] Comment on above: Performed By: #### L 501.2300, L100.0100, L500.4050, L501.5200 ####[facility] [address] [place], [address] Albumin/Globulin [Mass ratio] 1.1 {ratio} Normal 0.9-2.4 [facility] Comment on above: Performed By: #### L 501.2300, L100.0100, L500.4050, L501.5200 ####[facility] [address] [place], [address] ALK PHOS 115 U/L High 35-104 [facility] Comment on above: Performed By: #### L 501.2300, L100.0100, L500.4050, L501.5200 ####[facility] [address] [place], [address] ALT [Catalytic activity/Vol] 11 U/L Normal <=34 [facility] Comment on above: Performed By: #### L 501.2300, L100.0100, L500.4050, L501.5200 ####[facility] [address] [place], [address] AST [Catalytic activity/Vol] 20 U/L Normal <=31 [facility] Comment on above: Performed By: #### L 501.2300, L100.0100, L500.4050, L501.5200 ####[facility] [address] [place], [address] Bilirubin [Mass/Vol] 0.53 mg/dL Normal 0.00-1.30 [facility] Comment on above: Performed By: #### L 501.2300, L100.0100, L500.4050, L501.5200 ####[facility] [address] [place], [address] BUN/CRE 27.2 RATIO High 10-20 [facility] Comment on above: Performed By: #### L 501.2300, L100.0100, L500.4050, L501.5200 ####[facility] [address] [place], [address] Calcium [Mass/Vol] 9.1 mg/dL Normal 7.6-11.0 [facility] [facility] Comment on above: Performed By: #### L 501.2300, L100.0100, L500.4050, L501.5200 ####[facility] [address] [place], [address] Chloride [Moles/Vol] 104 mmol/L Normal 98-108 [facility] Comment on above: Performed By: #### L 501.2300, L100.0100, L500.4050, L501.5200 ####[facility] [address] [place], [address] CO2 [Moles/Vol] 21.5 mmol/L Normal 21.0-32.0 [facility] Comment on above: Performed By: #### L 501.2300, L100.0100, L500.4050, L501.5200 ####[facility] [address] [place], [address] Creatinine [Mass/Vol] 0.71 mg/dL Normal 0.70-1.20 [facility] Comment on above: Performed By: #### L 501.2300, L100.0100, L500.4050, L501.5200 ####[facility] [address] [place], [address] ECRCL 99.53 ml/min Normal 50-250 [facility] Comment on above: Performed By: #### L 501.2300, L100.0100, L500.4050, L501.5200 ####[facility] [address] [place], [address] GAP 10 Normal 5-15 [facility] Comment on above: Performed By: #### L 501.2300, L100.0100, L500.4050, L501.5200 ####[facility] [address] [place], [address] GFR/1.73 sq M.predicted among non-blacks MDRD (S/P/Bld) [Vol rate/Area] 101 mL/min/{1.73_m2} Normal >60 [facility] Comment on above: Result Comment: mL/m in/1.73m2 CKD-EPI Creatinine Equation (2020) Performed By: #### L 501.2300, L100.0100, L500.4050, L501.5200 ####[facility] [address] [place], [address] Globulin (S) [Mass/Vol] 3.0 g/dL Normal 2.2-4.2 [place] Comment on above: Performed By: #### L 501.2300, L100.0100, L500.4050, L501.5200 ####[facility] [address] [place], [address] Glucose [Mass/Vol] 159 mg/dL High 70-99 [facility] Comment on above: Performed By: #### L 501.2300, L100.0100, L500.4050, L501.5200 ####[facility] [address] [place], [address] Potassium [Moles/Vol] 3.8 mmol/L Normal 3.3-5.1 [facility] Comment on above: Result Comment: Hemo lysis present, Results??could be affected.?? Performed By: #### L 501.2300, L100.0100, L500.4050, L501.5200 ####[facility] [address] [place], [address] Sodium [Moles/Vol] 135 mmol/L Normal 133-145 [facility] Comment on above: Performed By: #### L 501.2300, L100.0100, L500.4050, L501.5200 ####[facility] [address] [place], [address] T PROT 6.3 g/dL Normal 5.9-8.4 [facility] Comment on above: Performed By: #### L 501.2300, L100.0100, L500.4050, L501.5200 ####[facility] [address] [place], [address] Urea nitrogen [Mass/Vol] 19 mg/dL Normal 4-19 [facility] Comment on above: Performed By: #### L 501.2300, L100.0100, L500.4050, L501.5200 ####[facility] [address] [place], [address] Magnesiumon 08-28-2024 Magnesium [Mass/Vol] 2.1 mg/dL Normal 1.5-2.2 [facility] Comment on above: Performed By: #### L 501.2300, L100.0100, L500.4050, L501.5200 ####[facility] [address] [place], [address] No Panel InformationOrdered By: Nicole Trujillo on 08-28-2024 20 U/L <32 [facility] Phosphoruson 08-28-2024 Phosphate [Mass/Vol] 2.7 mg/dL Normal 2.7-4.5 [facility] Comment on above: Performed By: #### L 501.2300, L100.0100, L500.4050, L501.5200 ####[facility] [address] [place], [address] Serum globulin measurementOr dered By: Nicole Trujillo on 08-28-2024 Globulin (S) [Mass/Vol] 3.0 g/dL 2.2-4.2 [facility] Serum globulin measurement 3.0 g/dL 2.2-4.2 [facility] Serum or plasma alanine hamilton otransferase (ALT) measurementOrdered By: Nicole Trujillo on 08-28-2024 ALT [Catalytic activity/Vol] 11 U/L <35 [facility] Serum or plasma albumin xiomara urement (mass/volume)Ordered By: Nicole Trujillo on 08-28-2024 Albumin [Mass/Vol] 3.2 g/dL Low 3.5-5.0 [facility] Serum or plasma albumin/glob ulin mass ratioOrdered By: Nicole Trujillo on 08-28-2024 Albumin/Globulin [Mass ratio] 1.1 {ratio} 0.9-2.4 [facility] Serum or plasma alkaline sabiha sphatase measurementOrdered By: Nicole Trujillo on 08-28-2024 ALP [Catalytic activity/Vol] 115 U/L High 35-104 [facility] Total proteinOrdered By: Jenae Trujillo on 08-28-2024 Protein [Mass/Vol] 6.3 g/dL 5.9-8.4 [facility] Total protein 6.3 g/dL 5.9-8.4 [facility] Activated partial thrombopla stin time (aPTT) in platelet poor plasma by coagulation aOrdered By: Brenda Posadas on 08-27-2024 aPTT Coag (PPP) [Time] 44.8 s High 24.1-36.2 [facility] Ankle Brachial Indexon 08-27 Ankle Brachial Index Normal [facility] Arterial study reportOrdered By: Riccardo Ng on 08-27-2024 Noninvasive arteriosclerosis study report [facility] Work Phone: Basic Metabolic Profile (BMP )on 08-27-2024 BUN/CRE 15.2 RATIO Normal 10-20 [facility] Comment on above: Performed By: #### L 500.2500 ####[facility] [address] [place], [place], [id number] Calcium [Mass/Vol] 8.8 mg/dL Normal 7.6-11.0 [facility] Comment on above: Performed By: #### L 500.2500 ####[facility] [address] [place], [address] Chloride [Moles/Vol] 103 mmol/L Normal 98-108 [facility] Comment on above: Performed By: #### L 500.2500 ####[facility] [address] [place], [address] CO2 [Moles/Vol] 24.9 mmol/L Normal 21.0-32.0 [facility] Comment on above: Performed By: #### L 500.2500 ####[facility] [address] [place], [address] Creatinine [Mass/Vol] 0.79 mg/dL Normal 0.70-1.20 [facility] Comment on above: Performed By: #### L 500.2500 ####[facility] [address] [place], [address] ECRCL 89.03 ml/min Normal 50-250 [facility] Comment on above: Performed By: #### L 500.2500 ####[facility] [address] [place], [address] GAP 10 Normal 5-15 [facility] Comment on above: Performed By: #### L 500.2500 ####[facility] [address] [place], [address] GFR/1.73 sq M.predicted among non-blacks MDRD (S/P/Bld) [Vol rate/Area] 89 mL/min/{1.73_m2} Normal >60 [facility] Comment on above: Result Comment: mL/m in/1.73m2 CKD-EPI Creatinine Equation (2020) Performed By: #### L 500.2500 ####[facility] [address] [place], [address] Glucose [Mass/Vol] 274 mg/dL High 70-99 [facility] Comment on above: Performed By: #### L 500.2500 ####[facility] [address] [place], [address] Potassium [Moles/Vol] 2.8 mmol/L Low 3.3-5.1 [facility] Comment on above: Performed By: #### L 500.2500 ####[facility] [address] [place], [address] Sodium [Moles/Vol] 137 mmol/L Normal 133-145 [facility] Comment on above: Performed By: #### L 500.2500 ####[facility] [address] [place], [address] Urea nitrogen [Mass/Vol] 12 mg/dL Normal 4-19 [facility] Comment on above: Performed By: #### L 500.2500 ####[facility] [address] [place], [address] Bedside Glucoseon 08-27-2024 FINGERSTICK GLU 203 mg/dL High 74-106 [facility] Comment on above: Result Comment: TALIA GEMENT OF PATIENT CARE PER NURSING PROTOCOL Performed By: #### L 501.080 ####[facility] [address] [place], [address] FINGERSTICK GLU 205 mg/dL High 74-106 [facility] Comment on above: Result Comment: TALIA GEMENT OF PATIENT CARE PER NURSING PROTOCOL Performed By: #### L 501.080 ####[facility] [address] [place], [address] FINGERSTICK GLU 225 mg/dL High 74-106 [facility] Comment on above: Result Comment: TALIA GEMENT OF PATIENT CARE PER NURSING PROTOCOL Performed By: #### L 501.080 ####[facility] [address] [place], [address] CBC W/Diff, Automatedon 03-2 Absolute Lymph 1.77 X10 3/uL Normal 0.83-4.51 [facility] Comment on above: Performed By: #### L 300.3900, L100.0100, L501.9520, L500.4050 ####[facility] [address] [place], [address] Absolute Neut 6.2 X10 3/uL Normal 2.0-7.7 [facility] Comment on above: Performed By: #### L 300.3900, L100.0100, L501.9520, L500.4050 ####[facility] [address] [place], [address] Basophils/100 WBC (Bld) 0.7 % Normal 0-1 [facility] Comment on above: Performed By: #### L 300.3900, L100.0100, L501.9520, L500.4050 ####[facility] [address] [place], [address] Eosinophils/100 WBC (Bld) 1.6 % Normal 0-5 [facility] Comment on above: Performed By: #### L 300.3900, L100.0100, L501.9520, L500.4050 ####[facility] [address] [place], [address] Erythrocyte distribution width (RBC) [Ratio] 13.7 % Normal 11.6-14.6 [facility] Comment on above: Performed By: #### L 300.3900, L100.0100, L501.9520, L500.4050 ####[facility] [address] [place], [address] Hematocrit (Bld) [Volume fraction] 33.8 % Low 37-47 [facility] Comment on above: Performed By: #### L 300.3900, L100.0100, L501.9520, L500.4050 ####[facility] [address] [place], [address] Hemoglobin (Bld) [Mass/Vol] 11.6 g/dL Low 12.0-15.0 [facility] Comment on above: Performed By: #### L 300.3900, L100.0100, L501.9520, L500.4050 ####[facility] [address] [place], [address] IG% 0.300 Normal 0.0-0.9 [facility] Comment on above: Result Comment: IG% - Immature Granulocytes (promyelocytes, myelocytes andmetamyelocytes) > 1% indicates that a LEFT SHIFT is Present. Performed By: #### L 300.3900, L100.0100, L501.9520, L500.4050 ####[facility] [address] [place], [address] Lymphocytes/100 WBC (Bld) 20.6 % Normal 19-41 [facility] Comment on above: Performed By: #### L 300.3900, L100.0100, L501.9520, L500.4050 ####[facility] [address] [place], [address] MCH (RBC) [Entitic mass] 28.2 pg Normal 27.0-32.0 [facility] Comment on above: Performed By: #### L 300.3900, L100.0100, L501.9520, L500.4050 ####[facility] [address] [place], [address] MCHC (RBC) [Mass/Vol] 34.3 g/dL Normal 32-36 [facility] Comment on above: Performed By: #### L 300.3900, L100.0100, L501.9520, L500.4050 ####[facility] [address] [place], [address] MCV (RBC) [Entitic vol] 82.0 fL Normal 81-99 [facility] Comment on above: Performed By: #### L 300.3900, L100.0100, L501.9520, L500.4050 ####[facility] [address] [place], [address] Monocytes/100 WBC (Bld) 4.4 % Normal 0-10 [facility] Comment on above: Performed By: #### L 300.3900, L100.0100, L501.9520, L500.4050 ####[facility] [address] [place], [address] Neutrophils/100 WBC (Bld) 72.4 % High 47-70 [facility] Comment on above: Performed By: #### L 300.3900, L100.0100, L501.9520, L500.4050 ####[facility] [address] [place], [address] Nucleated RBC (Bld) [#/Vol] 0 10*3/uL Normal 0-5 [facility] Comment on above: Performed By: #### L 300.3900, L100.0100, L501.9520, L500.4050 ####[facility] [address] [place], [address] Platelet mean volume (Bld) [Entitic vol] 9.2 fL Normal 6.2-12.0 [facility] Comment on above: Performed By: #### L 300.3900, L100.0100, L501.9520, L500.4050 ####[facility] [address] [place], [address] Platelets (Bld) [#/Vol] 229 10*3/uL Normal 150-450 [facility] Comment on above: Performed By: #### L 300.3900, L100.0100, L501.9520, L500.4050 ####[facility] [address] [place], [address] RBC (Bld) [#/Vol] 4.12 10*6/uL Low 4.2-5.4 [facility] Comment on above: Performed By: #### L 300.3900, L100.0100, L501.9520, L500.4050 ####[facility] [address] [place], [address] RDW SD 40.4 fl Normal 35.1-43.9 [facility] Comment on above: Performed By: #### L 300.3900, L100.0100, L501.9520, L500.4050 ####[facility] [address] [place], [address] WBC (Bld) [#/Vol] 8.6 10*3/uL Normal 4.4-11.0 [facility] Comment on above: Performed By: #### L 300.3900, L100.0100, L501.9520, L500.4050 ####[facility] [address] [place], [address] Comprehensive Metabolic Prof [facility] 08-27-2024 Albumin [Mass/Vol] 3.1 g/dL Low 3.5-5.0 [facility] Comment on above: Performed By: #### L 300.3900, L100.0100, L501.9520, L500.4050 ####[facility] [address] [place], [address] Albumin/Globulin [Mass ratio] 1.1 {ratio} Normal 0.9-2.4 [facility] Comment on above: Performed By: #### L 300.3900, L100.0100, L501.9520, L500.4050 ####[facility] [address] [place], [address] ALK PHOS 117 U/L High 35-104 [facility] Comment on above: Performed By: #### L 300.3900, L100.0100, L501.9520, L500.4050 ####[facility] [address] [place], [address] ALT [Catalytic activity/Vol] 13 U/L Normal <=34 [facility] Comment on above: Performed By: #### L 300.3900, L100.0100, L501.9520, L500.4050 ####[facility] [address] [place], [address] AST [Catalytic activity/Vol] 20 U/L Normal <=31 [facility] Comment on above: Performed By: #### L 300.3900, L100.0100, L501.9520, L500.4050 ####[facility] [address] [place], [address] Bilirubin [Mass/Vol] 0.61 mg/dL Normal 0.00-1.30 [facility] Comment on above: Performed By: #### L 300.3900, L100.0100, L501.9520, L500.4050 ####[facility] [address] [place], [address] BUN/CRE 16.7 RATIO Normal 10-20 [facility] Comment on above: Performed By: #### L 300.3900, L100.0100, L501.9520, L500.4050 ####[facility] [address] [place], [address] Calcium [Mass/Vol] 8.8 mg/dL Normal 7.6-11.0 [facility] Comment on above: Performed By: #### L 300.3900, L100.0100, L501.9520, L500.4050 ####[facility] [address] [place], [address] Chloride [Moles/Vol] 102 mmol/L Normal 98-108 [facility] Comment on above: Performed By: #### L 300.3900, L100.0100, L501.9520, L500.4050 ####[facility] [address] [place], [address] CO2 [Moles/Vol] 23.8 mmol/L Normal 21.0-32.0 [facility] Comment on above: Performed By: #### L 300.3900, L100.0100, L501.9520, L500.4050 ####[facility] [address] [place], [address] Creatinine [Mass/Vol] 0.65 mg/dL Low 0.70-1.20 [facility] Comment on above: Performed By: #### L 300.3900, L100.0100, L501.9520, L500.4050 ####[facility] [address] [place], [address] ECRCL 107.70 ml/min Normal 50-250 [facility] Comment on above: Performed By: #### L 300.3900, L100.0100, L501.9520, L500.4050 ####[facility] [address] [place], [address] GAP 9 Normal 5-15 [facility] Comment on above: Performed By: #### L 300.3900, L100.0100, L501.9520, L500.4050 ####[facility] [address] [place], [address] GFR/1.73 sq M.predicted among non-blacks MDRD (S/P/Bld) [Vol rate/Area] 105 mL/min/{1.73_m2} Normal >60 [facility] Comment on above: Result Comment: mL/m in/1.73m2 CKD-EPI Creatinine Equation (2020) Performed By: #### L 300.3900, L100.0100, L501.9520, L500.4050 ####[facility] [address] [place], [address] Globulin (S) [Mass/Vol] 2.9 g/dL Normal 2.2-4.2 [facility] Comment on above: Performed By: #### L 300.3900, L100.0100, L501.9520, L500.4050 ####[facility] [address] [place], [address] Glucose [Mass/Vol] 293 mg/dL High 70-99 [facility] Comment on above: Performed By: #### L 300.3900, L100.0100, L501.9520, L500.4050 ####[facility] [address] [place], [address] Potassium [Moles/Vol] 2.5 mmol/L Invalid Interpretation Code 3.3-5.1 [facility] Comment on above: Result Comment: Crit ical Result(s) Called at:0352 by:??MARTITA FARLEY Results read back by same. Performed By: #### L 300.3900, L100.0100, L501.9520, L500.4050 ####[facility] [address] [place], [address] Sodium [Moles/Vol] 136 mmol/L Normal 133-145 [facility] Comment on above: Performed By: #### L 300.3900, L100.0100, L501.9520, L500.4050 ####[facility] [address] [place], [address] T PROT 5.9 g/dL Normal 5.9-8.4 [facility] Comment on above: Performed By: #### L 300.3900, L100.0100, L501.9520, L500.4050 ####[facility] [address] [place], [address] Urea nitrogen [Mass/Vol] 11 mg/dL Normal 4-19 [facility] Comment on above: Performed By: #### L 300.3900, L100.0100, L501.9520, L500.4050 ####[facility] [address] [place], [address] Consultation - Surgicalon Consultation - Surgical Normal [facility] Electrocardiogram reportOrde red By: Alli Brito on 08-27-2024 EKG study [facility] Work Phone: International normalized rat io (INR) calculationOrdered By: Brenda Posadas on 08-27-2024 International normalized ratio (INR) calculation 1.0 [facility] Magnetic resonance imaging r eportOrdered By: Latricia Vargas on 08-27-2024 Study report [facility] Partial Thromboplast Timeon 08-27-2024 aPTT Coag (Bld) [Time] 44.8 s High 24.1-36.2 [facility] Comment on above: Performed By: #### L 300.4310 ####[facility] [address] [place], [address] aPTT Coag (Bld) [Time] 79.3 s High 24.1-36.2 [facility] Comment on above: Performed By: #### L 300.4310 ####[facility] [address] [place], [address] Prothrombin Time w/INRon INR Coag (PPP) [Relative time] 1.0 {INR} Normal [facility] Comment on above: Performed By: #### L 300.3900, L100.0100, L501.9520, L500.4050 ####[facility] [address] [place], [address] PT Coag (PPP) [Time] 13.2 s Normal 11.7-14.9 [facility] Comment on above: Performed By: #### L 300.3900, L100.0100, L501.9520, L500.4050 ####[facility] [address] [place], [place], [address] Prothrombin timeOrdered By: Brenda Posadas on 08-27-2024 PT Coag (PPP) [Time] 13.2 s 11.7-14.9 [facility] Prothrombin time 13.2 SECONDS 11.7-14.9 [facility] Spine Lumbar (Routine)on Spine Lumbar (Routine) Normal [facility] TSH DL <= 0.005 mIU/L QnOrde red By: Brenda Posadas on 08-27-2024 TSH Qn 1.180 uIU/mL 0.300-4.20 0 [facility] Serum or plasma thyroid stimulating hormone (TSH) measurement by high sensitivity met 1.180 uIU/mL 0.300-4.20 0 [facility] Thyroid Stim Hormone (TSH)on 08-27-2024 TSH 1.180 uIU/mL Normal 0.300-4.20 0 [facility] Comment on above: Performed By: #### L 300.3900, L100.0100, L501.9520, L500.4050 ####[facility] [address] [place], [place], [address] aPTT Coag (PPP) [Time]Ordere d By: Brenda Posadas on 08-27-2024 Activated partial thromboplastin time (aPTT) in platelet poor plasma by coagulation a 44.8 Seconds High 24.1-36.2 [facility] 12 Lead EKGon 08-26-2024 12 Lead EKG Normal [facility] ALP [Catalytic activity/Vol] Ordered By: Jeison Abrams on 08-26-2024 Serum or plasma alkaline phosphatase measurement 134 U/L High 35-104 [facility] ALT [Catalytic activity/Vol] Ordered By: Jeison Abrams on 08-26-2024 Serum or plasma alanine aminotransferase (ALT) measurement 14 U/L <35 [facility] Absolute neutrophil countOrd ered By: Jeison Abrams on 08-26-2024 Absolute neutrophil count 5.2 X10^3/uL 2.0-7.7 [facility] Albumin [Mass/Vol]Ordered By : Jeison Abrams on 08-26-2024 Serum or plasma albumin measurement (mass/volume) 3.6 g/dL 3.5-5.0 [facility] Anion gap [Moles/Vol]Ordered By: Jeison Abrams on 08-26-2024 Anion gap in Serum or Plasma 11 - [facility] BUN/creatinine ratioOrdered By: Jeison Abrams on 08-26-2024 BUN/creatinine ratio 14.1 RATIO - [facility] Basic Metabolic Profile (BMP )on 08-26-2024 BUN/CRE 14.1 RATIO Normal - [facility] Comment on above: Performed By: #### L 300.3900, L503.7505, L500.2500, L100.0100, L300.4310, L503.6005, L500.3400 ####[facility] [address] [place], [address] Calcium [Mass/Vol] 9.2 mg/dL Normal 7.6-11.0 [facility] Comment on above: Performed By: #### L 300.3900, L503.7505, L500.2500, L100.0100, L300.4310, L503.6005, L500.3400 ####[facility] [address] [place], [address] Chloride [Moles/Vol] 102 mmol/L Normal 98-108 [facility] Comment on above: Performed By: #### L 300.3900, L503.7505, L500.2500, L100.0100, L300.4310, L503.6005, L500.3400 ####[facility] [address] [place], [address] CO2 [Moles/Vol] 22.3 mmol/L Normal 21.0-32.0 [facility] Comment on above: Performed By: #### L 300.3900, L503.7505, L500.2500, L100.0100, L300.4310, L503.6005, L500.3400 ####[facility] [address] [place], [address] Creatinine [Mass/Vol] 0.74 mg/dL Normal 0.70-1.20 [facility] Comment on above: Performed By: #### L 300.3900, L503.7505, L500.2500, L100.0100, L300.4310, L503.6005, L500.3400 ####[facility] [address] [place], [address] ECRCL 97.71 ml/min Normal 50-250 [facility] Comment on above: Performed By: #### L 300.3900, L503.7505, L500.2500, L100.0100, L300.4310, L503.6005, L500.3400 ####[facility] [address] [place], [place], [phone]) GAP 11 Normal 5-15 [facility] Comment on above: Performed By: #### L 300.3900, L503.7505, L500.2500, L100.0100, L300.4310, L503.6005, L500.3400 ####[facility] [address] [place], [address] GFR/1.73 sq M.predicted among non-blacks MDRD (S/P/Bld) [Vol rate/Area] 97 mL/min/{1.73_m2} Normal >60 [facility] Comment on above: Result Comment: mL/m in/1.73m2 CKD-EPI Creatinine Equation (2020) Performed By: #### L 300.3900, L503.7505, L500.2500, L100.0100, L300.4310, L503.6005, L500.3400 ####[facility] [address] [place], [address] Glucose [Mass/Vol] 315 mg/dL High 70-99 [facility] Comment on above: Performed By: #### L 300.3900, L503.7505, L500.2500, L100.0100, L300.4310, L503.6005, L500.3400 ####[facility] [address] [place], [address] Potassium [Moles/Vol] 3.4 mmol/L Normal 3.3-5.1 [facility] Comment on above: Result Comment: Hemo lysis present, Results??could be affected.?? Performed By: #### L 300.3900, L503.7505, L500.2500, L100.0100, L300.4310, L503.6005, L500.3400 ####[facility] [address] [place], [address] Sodium [Moles/Vol] 135 mmol/L Normal 133-145 [facility] Comment on above: Performed By: #### L 300.3900, L503.7505, L500.2500, L100.0100, L300.4310, L503.6005, L500.3400 ####[facility] [address] [place], [address] Urea nitrogen [Mass/Vol] 10 mg/dL Normal 4-19 [facility] Comment on above: Performed By: #### L 300.3900, L503.7505, L500.2500, L100.0100, L300.4310, L503.6005, L500.3400 ####[facility] [address] [place], [address] Basophil percentageOrdered B y: Jeison Abrams on 08-26-2024 Basophil percentage 0.7 % 0-1 [facility] Bedside Glucoseon 08-26-2024 FINGERSTICK GLU 193 mg/dL High 74-106 [facility] Comment on above: Result Comment: TALIA CHAMBERS OF PATIENT CARE PER NURSING PROTOCOL Performed By: #### L 501.080 ####[facility] [address] [place], [place], [phone] Bilirubin directOrdered By: Jeison Abrams on 08-26-2024 Bilirubin.direct [Mass/Vol] 0.08 mg/dL 0.00-0.30 [facility] Bilirubin, totalOrdered By: Jeison Abrams on 08-26-2024 Bilirubin, total 0.52 mg/dL 0.00-1.30 [facility] Bilirubin.direct [Mass/Vol]O rdered By: Jeison Abrams on 08-26-2024 Bilirubin direct 0.08 mg/dL 0.00-0.30 [facility] CBC W/Diff, Automatedon 08-03 Absolute Lymph 1.57 X10 3/uL Normal 0.83-4.51 [facility] Comment on above: Performed By: #### L 300.3900, L503.7505, L500.2500, L100.0100, L300.4310, L503.6005, L500.3400 ####[facility] [address] [place], [place], [phone] Absolute Neut 5.2 X10 3/uL Normal 2.0-7.7 [facility] Comment on above: Performed By: #### L 300.3900, L503.7505, L500.2500, L100.0100, L300.4310, L503.6005, L500.3400 ####[facility] [address] [place], [address] Basophils/100 WBC (Bld) 0.7 % Normal 0-1 [facility] Comment on above: Performed By: #### L 300.3900, L503.7505, L500.2500, L100.0100, L300.4310, L503.6005, L500.3400 ####[facility] [address] [place], [address] Eosinophils/100 WBC (Bld) 2.8 % Normal 0-5 [facility] Comment on above: Performed By: #### L 300.3900, L503.7505, L500.2500, L100.0100, L300.4310, L503.6005, L500.3400 ####[facility] [address] [place], [address] Erythrocyte distribution width (RBC) [Ratio] 13.6 % Normal 11.6-14.6 [facility] Comment on above: Performed By: #### L 300.3900, L503.7505, L500.2500, L100.0100, L300.4310, L503.6005, L500.3400 ####[facility] [address] [place], [address] Hematocrit (Bld) [Volume fraction] 40.6 % Normal 37-47 [facility] Comment on above: Performed By: #### L 300.3900, L503.7505, L500.2500, L100.0100, L300.4310, L503.6005, L500.3400 ####[facility] [address] [place], [address] Hemoglobin (Bld) [Mass/Vol] 13.7 g/dL Normal 12.0-15.0 [facility] Comment on above: Performed By: #### L 300.3900, L503.7505, L500.2500, L100.0100, L300.4310, L503.6005, L500.3400 ####[facility] [address] [place], [address] IG% 0.300 Normal 0.0-0.9 [facility] Comment on above: Result Comment: IG% - Immature Granulocytes (promyelocytes, myelocytes andmetamyelocytes) > 1% indicates that a LEFT SHIFT is Present. Performed By: #### L 300.3900, L503.7505, L500.2500, L100.0100, L300.4310, L503.6005, L500.3400 ####[facility] [address] [place], [address] Lymphocytes/100 WBC (Bld) 20.9 % Normal 19-41 [facility] Comment on above: Performed By: #### L 300.3900, L503.7505, L500.2500, L100.0100, L300.4310, L503.6005, L500.3400 ####[facility] [address] [place], [address] MCH (RBC) [Entitic mass] 27.8 pg Normal 27.0-32.0 [facility] Comment on above: Performed By: #### L 300.3900, L503.7505, L500.2500, L100.0100, L300.4310, L503.6005, L500.3400 ####[facility] [address] [place], [address] MCHC (RBC) [Mass/Vol] 33.7 g/dL Normal 32-36 [facility] Comment on above: Performed By: #### L 300.3900, L503.7505, L500.2500, L100.0100, L300.4310, L503.6005, L500.3400 ####[facility] [address] [place], [address] MCV (RBC) [Entitic vol] 82.4 fL Normal 81-99 [facility] Comment on above: Performed By: #### L 300.3900, L503.7505, L500.2500, L100.0100, L300.4310, L503.6005, L500.3400 ####[facility] [address] [place], [address] Monocytes/100 WBC (Bld) 5.7 % Normal 0-10 [facility] Comment on above: Performed By: #### L 300.3900, L503.7505, L500.2500, L100.0100, L300.4310, L503.6005, L500.3400 ####[facility] [address] [place], [address] Neutrophils/100 WBC (Bld) 69.6 % Normal 47-70 [facility] Comment on above: Performed By: #### L 300.3900, L503.7505, L500.2500, L100.0100, L300.4310, L503.6005, L500.3400 ####[facility] [address] [place], [address] Nucleated RBC (Bld) [#/Vol] 0 10*3/uL Normal 0-5 [facility] Comment on above: Performed By: #### L 300.3900, L503.7505, L500.2500, L100.0100, L300.4310, L503.6005, L500.3400 ####[facility] [address] [place], [address] Platelet mean volume (Bld) [Entitic vol] 9.1 fL Normal 6.2-12.0 [facility] Comment on above: Performed By: #### L 300.3900, L503.7505, L500.2500, L100.0100, L300.4310, L503.6005, L500.3400 ####[facility] [address] [place], [address] Platelets (Bld) [#/Vol] 225 10*3/uL Normal 150-450 [facility] Comment on above: Performed By: #### L 300.3900, L503.7505, L500.2500, L100.0100, L300.4310, L503.6005, L500.3400 ####[facility] [address] [place], [address] RBC (Bld) [#/Vol] 4.93 10*6/uL Normal 4.2-5.4 [facility] Comment on above: Performed By: #### L 300.3900, L503.7505, L500.2500, L100.0100, L300.4310, L503.6005, L500.3400 ####[facility] [address] [place], [address] RDW SD 40.2 fl Normal 35.1-43.9 [facility] Comment on above: Performed By: #### L 300.3900, L503.7505, L500.2500, L100.0100, L300.4310, L503.6005, L500.3400 ####[facility] [address] [place], [address] WBC (Bld) [#/Vol] 7.5 10*3/uL Normal 4.4-11.0 [facility] Comment on above: Performed By: #### L 300.3900, L503.7505, L500.2500, L100.0100, L300.4310, L503.6005, L500.3400 ####[facility] [address] [place], [address] CTA LWR EXTR W/O W/DYEon CTA LWR EXTR W/O W/DYE Normal [facility] Calcium [Mass/Vol]Ordered By : Jeison Abrams on 08-26-2024 Serum or plasma calcium measurement (mass/volume) 9.2 mg/dL 7.6-11.0 [facility] Carbon dioxide, total [Moles /volume] in Central venous bloodOrdered By: Jeison Abrams on 08-26-2024 Carbon dioxide, total [Moles/volume] in Central venous blood 22.3 mmol/L 21.0-32.0 [facility] Chest 1 View (Portable)on Chest 1 View (Portable) Normal [facility] Chloride assayOrdered By: Tristan Abrams on 08-26-2024 Chloride assay 102 mmol/L 98-108 [facility] Creatinine [Mass/Vol]Ordered By: Jeison Abrams on 08-26-2024 Serum creatinine measurement (mass/volume) 0.74 mg/dL 0.70-1.20 [facility] Emergency Department Summary on 08-26-2024 Emergency Department Summary Normal [facility] Eosinophil percentageOrdered By: Jeison Abrams on 08-26-2024 Eosinophil percentage 2.8 % 0-5 [facility] Erythrocyte distribution wid th (RBC) [Entitic vol]Ordered By: Jeison Abrams on 08-26-2024 Erythrocyte distribution width standard deviation 40.2 fl 35.1-43.9 [facility] Erythrocyte distribution wid th (RBC) [Ratio]Ordered By: Jeison Abrams on 08-26-2024 Erythrocyte distribution width ratio 13.6 % 11.6-14.6 [facility] Estimation of creatinine sylvain aranceOrdered By: Jeison Abrams on 08-26-2024 Estimation of creatinine clearance 97.71 ml/min 50-250 [facility] GFR/1.73 sq M.predicted estephanie g non-blacks MDRD (S/P/Bld) [Vol rate/Area]Ordered By: Jeison Abrams on 08-26-2024 Glomerular filtration rate (GFR) estimation/1.73 sq m using serum, plasma, or whole b 97 >60 [facility] Glucose [Mass/Vol]Ordered By : Jeison Abrams on 08-26-2024 Serum glucose measurement (mass/volume) 315 mg/dL High 70-99 [facility] H AND P Exam - Hospitaliston 08-26-2024 H&P Exam - Hospitalist Normal [facility] Hematocrit Auto (Bld) [Volum e fraction]Ordered By: Jeison Abrams on 08-26-2024 Automated blood hematocrit (percentage) 40.6 % 37-47 [facility] Hemoglobin measurementOrdere d By: Jeison Abrams on 08-26-2024 Hemoglobin measurement 13.7 g/dL 12.0-15.0 [facility] Immature granulocytes/100 WB C Auto (Bld)Ordered By: Jeison Abrams on 08-26-2024 Automated immature granulocyte percentage 0.300 % 0.0-0.9 [facility] International normalized rat io (INR) calculationOrdered By: Vaughn Daugherty on 08-26-2024 International normalized ratio (INR) calculation 1.0 [facility] L503.7505on 08-26-2024 Natriuretic peptide B (Bld) [Mass/Vol] 1489 pg/mL High <=900 [facility] Comment on above: Result Comment: Hear t Failure Unlikely: < 300 pg/mLHeart Failure Likely< 50 Years: > 450 pg/mL50-75 Years: > 900 pg/mL>75 Years: > 1800 pg/mL Performed By: #### L 300.3900, L503.7505, L500.2500, L100.0100, L300.4310, L503.6005, L500.3400 ####[facility] [address] [place], [address] Lactic Acidon 08-26-2024 Lactate [Moles/Vol] 1.5 mmol/L Normal 0.0-2.0 [facility] Comment on above: Order Comment: Y Performed By: #### L 300.3900, L503.7505, L500.2500, L100.0100, L300.4310, L503.6005, L500.3400 ####[facility] [address] [facility] [place], [place], [id number] Lactic acid measurementOrder ed By: Jeison Abrams on 08-26-2024 Lactic acid measurement 1.5 mmol/L 0.0-2.0 [place] Liver Profileon 08-26-2024 Albumin [Mass/Vol] 3.6 g/dL Normal 3.5-5.0 [facility] Comment on above: Performed By: #### L 300.3900, L503.7505, L500.2500, L100.0100, L300.4310, L503.6005, L500.3400 ####[facility] [address] [place], [address] ALK PHOS 134 U/L High 35-104 [facility] Comment on above: Performed By: #### L 300.3900, L503.7505, L500.2500, L100.0100, L300.4310, L503.6005, L500.3400 ####[facility] [address] [place], [address] ALT [Catalytic activity/Vol] 14 U/L Normal <=34 [facility] Comment on above: Performed By: #### L 300.3900, L503.7505, L500.2500, L100.0100, L300.4310, L503.6005, L500.3400 ####[facility] [address] [place], [address] AST [Catalytic activity/Vol] 27 U/L Normal <=31 [facility] Comment on above: Result Comment: Hemo lysis present, Results??could be affected.?? Performed By: #### L 300.3900, L503.7505, L500.2500, L100.0100, L300.4310, L503.6005, L500.3400 ####[facility] [address] [place], [address] Bilirubin [Mass/Vol] 0.52 mg/dL Normal 0.00-1.30 [facility] Comment on above: Performed By: #### L 300.3900, L503.7505, L500.2500, L100.0100, L300.4310, L503.6005, L500.3400 ####[facility] [address] [place], [address] Bilirubin.direct [Mass/Vol] 0.08 mg/dL Normal 0.00-0.30 [facility] Comment on above: Result Comment: Hemo lysis present, Results??could be affected.?? Performed By: #### L 300.3900, L503.7505, L500.2500, L100.0100, L300.4310, L503.6005, L500.3400 ####[facility] [address] [place], [address] Globulin (S) [Mass/Vol] 3.4 g/dL Normal 2.2-4.2 [facility] Comment on above: Performed By: #### L 300.3900, L503.7505, L500.2500, L100.0100, L300.4310, L503.6005, L500.3400 ####[facility] [address], [address] T PROT 7.0 g/dL Normal 5.9-8.4 [facility] Comment on above: Performed By: #### L 300.3900, L503.7505, L500.2500, L100.0100, L300.4310, L503.6005, L500.3400 ####[facility] [address] [place], [place], [phone] Lymphocytes Auto (Unsp spec) [#/Vol]Ordered By: Jeison Abrams on 08-26-2024 Absolute lymphocyte count 1.57 X10^3/uL 0.83-4.51 [facility] Lymphocytes/100 WBC Auto (Un sp spec)Ordered By: Jeison Abrams on 08-26-2024 Automated lymphocyte count as percentage of total leukocytes 20.9 % 19-41 [facility] MCV (RBC) [Entitic vol]Order ed By: Jeison Abrams on 08-26-2024 MCV (mean corpuscular volume) determination 82.4 fL 81-99 [facility] Mean corpuscular hemoglobin (MCH) determinationOrdered By: Jeison Abrams on 08-26-2024 Mean corpuscular hemoglobin (MCH) determination 27.8 pg 27.0-32.0 [facility] Mean corpuscular hemoglobin concentration (MCHC) determinationOrdered By: Jeison Abrams on 08-26-2024 Mean corpuscular hemoglobin concentration (MCHC) determination 33.7 g/dL 32-36 [facility] Mean platelet volume determi nationOrdered By: Jeison Abrams on 08-26-2024 Mean platelet volume determination 9.1 fl 6.2-12.0 [facility] Monocyte percentageOrdered B y: Jeison Abrams on 08-26-2024 Monocyte percentage 5.7 % 0-10 [facility] Neutrophil percentageOrdered By: Jeison Abrams on 08-26-2024 Neutrophil percentage 69.6 % 47-70 [facility] No Panel InformationOrdered By: Jeison Abrams on 08-26-2024 27 U/L <32 [facility] 1489 pg/mL High <900 [facility] Nucleated red blood cell per centageOrdered By: Jeison Abrams on 08-26-2024 Nucleated red blood cell percentage 0 % 0-5 [facility] Partial Thromboplast Timeon 08-26-2024 aPTT Coag (Bld) [Time] 26.5 s Normal 24.1-36.2 [facility] Comment on above: Performed By: #### L 300.3900, L300.4310 ####[facility] [address] [place], [place], [id number] aPTT Coag (Bld) [Time] 26.8 s Normal 24.1-36.2 [facility] Comment on above: Performed By: #### L 300.3900, L503.7505, L500.2500, L100.0100, L300.4310, L503.6005, L500.3400 ####[facility] [address] [place], [address] Platelet countOrdered By: Tristan Abrams on 08-26-2024 Platelet count 225 K/mm3 150-450 [facility] Potassium (Unsp spec) [Mass/ Vol]Ordered By: Jeison Abrams on 08-26-2024 Potassium measurement (mass/volume) 3.4 mmol/L 3.3-5.1 [facility] Prothrombin Time w/INRon INR Coag (PPP) [Relative time] 1.0 {INR} Normal [facility] Comment on above: Performed By: #### L 300.3900, L300.4310 ####[facility] [address] [place], [address] PT Coag (PPP) [Time] 12.8 s Normal 11.7-14.9 [facility] Comment on above: Performed By: #### L 300.3900, L300.4310 ####[facility] [address] [place], [address] INR Coag (PPP) [Relative time] 0.9 {INR} Normal [facility] Comment on above: Performed By: #### L 300.3900, L503.7505, L500.2500, L100.0100, L300.4310, L503.6005, L500.3400 ####[facility] [address] [place], [address] PT Coag (PPP) [Time] 12.3 s Normal 11.7-14.9 [facility] Comment on above: Performed By: #### L 300.3900, L503.7505, L500.2500, L100.0100, L300.4310, L503.6005, L500.3400 ####[facility] [address] [place], [address] Prothrombin timeOrdered By: Vaughn Daugherty on 08-26-2024 Prothrombin time 12.8 SECONDS 11.7-14.9 [facility] RBC Auto (Bld) [#/Vol]Ordere d By: Jeison Abrams on 08-26-2024 Automated blood erythrocyte count 4.93 M/mm3 4.2-5.4 [facility] Serum globulin measurementOr dered By: Jeison Abrams on 08-26-2024 Serum globulin measurement 3.4 g/dL 2.2-4.2 [facility] Sodium levelOrdered By: Sj Abrams on 08-26-2024 Sodium level 135 mmol/L 133-145 [facility] Total proteinOrdered By: Gualberto Abrams on 08-26-2024 Total protein 7.0 g/dL 5.9-8.4 [facility] Urea nitrogen [Mass/Vol]Orde red By: Jeison Abrams on 08-26-2024 Serum or plasma urea nitrogen measurement (mass/volume) 10 mg/dL 4-19 [facility] Venous Duplex US, Unilateral on 08-26-2024 Venous Duplex US, Unilateral Normal [facility] Venous duplex ultrasound rep ortOrdered By: Rcicardo Ng on 08-26-2024 US Vein [facility] Work Phone: White blood cell (WBC) count Ordered By: Jeison Abrams on 08-26-2024 White blood cell (WBC) count 7.5 K/mm3 4.4-11.0 [facility] aPTT Coag (PPP) [Time]Ordere d By: Vaughn Daugherty on 08-26-2024 Activated partial thromboplastin time (aPTT) in platelet poor plasma by coagulation a 26.5 Seconds 24.1-36.2 [facility] Urine Cultureon 08-04-2024 URC Normal [facility] Comment on above: Performed By: #### M 100.2200 ####[facility] [address] [place], [address] ALP [Catalytic activity/Vol] Ordered By: Riccardo Hillman on 08-01-2024 Serum or plasma alkaline phosphatase measurement 162 U/L High 35-104 [facility] ALT [Catalytic activity/Vol] Ordered By: Riccardo Hillman on 08-01-2024 Serum or plasma alanine aminotransferase (ALT) measurement 12 U/L <35 [facility] Abdomen/Pelvis W IV Cont ONL Yon 08-01-2024 Abdomen/Pelvis W IV Cont ONLY Normal [facility] Absolute neutrophil countOrd ered By: Riccardo Hillman on 08-01-2024 Absolute neutrophil count 11.1 X10^3/uL High 2.0-7.7 [facility] Acetone Serumon 08-01-2024 ACETONE SERUM Negative Normal NEG [facility] Comment on above: Performed By: #### L 501.6900 ####[facility] [address] [place], [address] Acetone [Mass/Vol]Ordered By : Riccardo Hillman on 08-01-2024 Serum acetone measurement Negative NEG [facility] Albumin [Mass/Vol]Ordered By : Riccardo Hillman on 08-01-2024 Serum or plasma albumin measurement (mass/volume) 4.2 g/dL 3.5-5.0 [facility] Albumin/Globulin [Mass ratio ]Ordered By: Riccardoting Hillman on 08-01-2024 Serum or plasma albumin/globulin mass ratio 1.0 RATIO 0.9-2.4 [facility] Anion gap [Moles/Vol]Ordered By: Riccardo Hillman on 08-01-2024 Serum or plasma anion gap determination (moles/volume) 17 High 5-15 [facility] BUN/creatinine ratioOrdered By: Riccardo Hillman on 08-01-2024 BUN/creatinine ratio 11.8 RATIO 10-20 [facility] Bacteria LM.HPF (Urine sed) [#/Area]Ordered By: Riccardo Hillman on 08-01-2024 Urine sediment bacteria count by microscopy (number/high power field) 4+ /hpf None Seen [facility] Basophil percentageOrdered B y: Riccardo Hillman on 08-01-2024 Basophil percentage 0.5 % 0-1 [facility] Bedside Glucoseon 08-01-2024 FINGERSTICK GLU 225 mg/dL High 74-106 [facility] Comment on above: Result Comment: TALIA CHAMBERS OF PATIENT CARE PER NURSING PROTOCOL Performed By: #### L 501.080 ####[facility] [address] [place], [place], [id number] Bilirubin, totalOrdered By: Riccardo Hillman on 08-01-2024 Bilirubin, total 1.23 mg/dL 0.00-1.30 [facility] CBC W/Diff, Automatedon 02-2 8-2025 Absolute Lymph 1.55 X10 3/uL Normal 0.83-4.51 [facility] Comment on above: Performed By: #### L 501.2450, L500.4050, L100.0100 ####[facility] [address] [place], [address] Absolute Neut 11.1 X10 3/uL High 2.0-7.7 [facility] Comment on above: Performed By: #### L 501.2450, L500.4050, L100.0100 ####[facility] [address] [place], [address] Basophils/100 WBC (Bld) 0.5 % Normal 0-1 [facility] Comment on above: Performed By: #### L 501.2450, L500.4050, L100.0100 ####[facility] [address] [place], [address] Eosinophils/100 WBC (Bld) 0.2 % Normal 0-5 [facility] Comment on above: Performed By: #### L 501.2450, L500.4050, L100.0100 ####[facility] [address] [place], [address] Erythrocyte distribution width (RBC) [Ratio] 14.1 % Normal 11.6-14.6 [facility] Comment on above: Performed By: #### L 501.2450, L500.4050, L100.0100 ####[facility] [address] [place], [address] Hematocrit (Bld) [Volume fraction] 40.8 % Normal 37-47 [facility] Comment on above: Performed By: #### L 501.2450, L500.4050, L100.0100 ####[facility] [address] [place], [address] Hemoglobin (Bld) [Mass/Vol] 13.6 g/dL Normal 12.0-15.0 [facility] Comment on above: Performed By: #### L 501.2450, L500.4050, L100.0100 ####[facility] [address] [place], [address] IG% 0.300 Normal 0.0-0.9 [facility] Comment on above: Result Comment: IG% - Immature Granulocytes (promyelocytes, myelocytes andmetamyelocytes) > 1% indicates that a LEFT SHIFT is Present. Performed By: #### L 501.2450, L500.4050, L100.0100 ####[facility] [address] [place], [address] Lymphocytes/100 WBC (Bld) 11.7 % Low 19-41 [facility] Comment on above: Performed By: #### L 501.2450, L500.4050, L100.0100 ####[facility] [address] [place], [address] MCH (RBC) [Entitic mass] 27.7 pg Normal 27.0-32.0 [facility] Comment on above: Performed By: #### L 501.2450, L500.4050, L100.0100 ####[facility] [address] [place], [address] MCHC (RBC) [Mass/Vol] 33.3 g/dL Normal 32-36 [facility] Comment on above: Performed By: #### L 501.2450, L500.4050, L100.0100 ####[facility] [address] [place], [address] MCV (RBC) [Entitic vol] 83.1 fL Normal 81-99 [facility] Comment on above: Performed By: #### L 501.2450, L500.4050, L100.0100 ####[facility] [address] [place], [address] Monocytes/100 WBC (Bld) 3.4 % Normal 0-10 [facility] Comment on above: Performed By: #### L 501.2450, L500.4050, L100.0100 ####[facility] [address] [place], [address] Neutrophils/100 WBC (Bld) 83.9 % High 47-70 [facility] [facility] Comment on above: Performed By: #### L 501.2450, L500.4050, L100.0100 ####[facility] [address] [place], [address] Nucleated RBC (Bld) [#/Vol] 0 10*3/uL Normal 0-5 [facility] Comment on above: Performed By: #### L 501.2450, L500.4050, L100.0100 ####[facility] [address] [place], [address] Platelet mean volume (Bld) [Entitic vol] 9.9 fL Normal 6.2-12.0 [facility] Comment on above: Performed By: #### L 501.2450, L500.4050, L100.0100 ####[facility] [address] [place], [address] Platelets (Bld) [#/Vol] 338 10*3/uL Normal 150-450 [facility] Comment on above: Performed By: #### L 501.2450, L500.4050, L100.0100 ####[facility] [address] [place], [address] RBC (Bld) [#/Vol] 4.91 10*6/uL Normal 4.2-5.4 [facility] Comment on above: Performed By: #### L 501.2450, L500.4050, L100.0100 ####[facility] [address] [place], [address] RDW SD 42.2 fl Normal 35.1-43.9 [facility] Comment on above: Performed By: #### L 501.2450, L500.4050, L100.0100 ####[facility] [address] [place], [address] WBC (Bld) [#/Vol] 13.3 10*3/uL High 4.4-11.0 [facility] Comment on above: Performed By: #### L 501.2450, L500.4050, L100.0100 ####[facility] [address] [place], [address] Calcium [Mass/Vol]Ordered By : Riccardo Hillman on 08-01-2024 Serum or plasma calcium measurement (mass/volume) 9.8 mg/dL 7.6-11.0 [facility] Carbon dioxide measurementOr dered By: Riccardo Hillman on 08-01-2024 Carbon dioxide measurement 22.7 mmol/L 22.0-29.0 [facility] Chloride measurementOrdered By: Riccardo Hillman on 08-01-2024 Chloride measurement 93 mmol/L Low 96-108 [facility] Clarity (U)Ordered By: Riccardo Hillman on 08-01-2024 Urine clarity Cloudy Clear [facility] Color (U)Ordered By: Riccardo latham on 08-01-2024 Urine color determination Yellow Yellow [facility] Comprehensive Metabolic Prof ilon 08-01-2024 Albumin [Mass/Vol] 4.2 g/dL Normal 3.5-5.0 [facility] Comment on above: Performed By: #### L 501.2450, L500.4050, L100.0100 ####[facility] [address] [place], [address] Albumin/Globulin [Mass ratio] 1.0 {ratio} Normal 0.9-2.4 [facility] Comment on above: Performed By: #### L 501.2450, L500.4050, L100.0100 ####[facility] [address] [place], [address] ALK PHOS 162 U/L High 35-104 [facility] Comment on above: Performed By: #### L 501.2450, L500.4050, L100.0100 ####[facility] [address] [place], [address] ALT [Catalytic activity/Vol] 12 U/L Normal <=34 [facility] Comment on above: Performed By: #### L 501.2450, L500.4050, L100.0100 ####[facility] [address] [place], [address] Anion gap [Moles/Vol] 17 mmol/L High 5-15 [facility] Comment on above: Performed By: #### L 501.2450, L500.4050, L100.0100 ####[facility] [address] [place], [address] AST [Catalytic activity/Vol] 24 U/L Normal <=31 [facility] Comment on above: Performed By: #### L 501.2450, L500.4050, L100.0100 ####[facility] [address] [place], [address] Bilirubin [Mass/Vol] 1.23 mg/dL Normal 0.00-1.30 [facility] Comment on above: Performed By: #### L 501.2450, L500.4050, L100.0100 ####[facility] [address] [place], [address] BUN/CRE 11.8 RATIO Normal 10-20 [facility] Comment on above: Performed By: #### L 501.2450, L500.4050, L100.0100 ####[facility] [address] [place], [address] Calcium [Mass/Vol] 9.8 mg/dL Normal 7.6-11.0 [facility] Comment on above: Performed By: #### L 501.2450, L500.4050, L100.0100 ####[facility] [address] [place], [address] Chloride [Moles/Vol] 93 mmol/L Low 96-108 [facility] Comment on above: Performed By: #### L 501.2450, L500.4050, L100.0100 ####[facility] [address] [place], [address] CO2 [Moles/Vol] 22.7 mmol/L Normal 22.0-29.0 [facility] Comment on above: Performed By: #### L 501.2450, L500.4050, L100.0100 ####[facility] [address] [place], [address] Creatinine [Mass/Vol] 0.79 mg/dL Normal 0.70-1.20 [facility] Comment on above: Performed By: #### L 501.2450, L500.4050, L100.0100 ####[facility] [address] [place], [address] ECRCL 91.16 ml/min Normal [facility] Comment on above: Performed By: #### L 501.2450, L500.4050, L100.0100 ####[facility] [address] [place], [address] GFR/1.73 sq M.predicted among non-blacks MDRD (S/P/Bld) [Vol rate/Area] 90 mL/min/{1.73_m2} Normal >60 [facility] Comment on above: Result Comment: mL/m in/1.73m2 CKD-EPI Creatinine Equation (2020) Performed By: #### L 501.2450, L500.4050, L100.0100 ####[facility] [address] [place], [address] Globulin (S) [Mass/Vol] 4.0 g/dL Normal 2.2-4.2 [facility] Comment on above: Performed By: #### L 501.2450, L500.4050, L100.0100 ####[facility] [address] [place], [address] Glucose [Mass/Vol] 410 mg/dL High 70-99 [facility] Comment on above: Performed By: #### L 501.2450, L500.4050, L100.0100 ####[facility] [address] [place], [address] Potassium [Moles/Vol] 3.5 mmol/L Normal 3.3-5.1 [facility] Comment on above: Performed By: #### L 501.2450, L500.4050, L100.0100 ####[facility] [address] [place], [address] Sodium [Moles/Vol] 132 mmol/L Low 133-145 [facility] Comment on above: Performed By: #### L 501.2450, L500.4050, L100.0100 ####[facility] [address] [place], [address] T PROT 8.1 g/dL Normal 5.9-8.4 [facility] Comment on above: Performed By: #### L 501.2450, L500.4050, L100.0100 ####[facility] [address] [place], [address] Urea nitrogen [Mass/Vol] 9 mg/dL Normal 4-19 [facility] Comment on above: Performed By: #### L 501.2450, L500.4050, L100.0100 ####[facility] [address] [place], [address] Creatinine [Mass/Vol]Ordered By: Riccardo Hillman on 08-01-2024 Serum creatinine measurement (mass/volume) 0.79 mg/dL 0.70-1.20 [facility] Emergency Department Summary on 08-01-2024 Emergency Department Summary Normal [facility] Eosinophil percentageOrdered By: Riccardo Hillman on 08-01-2024 Eosinophil percentage 0.2 % 0-5 [facility] Erythrocyte distribution wid th (RBC) [Ratio]Ordered By: Riccardo Hillman on 08-01-2024 Erythrocyte distribution width ratio 14.1 % 11.6-14.6 [facility] Erythrocyte distribution wid th standard deviationOrdered By: Riccardo Hillman on 08-01-2024 Erythrocyte distribution width standard deviation 42.2 fl 35.1-43.9 [facility] Estimation of creatinine sylvain aranceOrdered By: Riccardo Hillman on 08-01-2024 Estimation of creatinine clearance 91.16 ml/min [facility] GFR/1.73 sq M.predicted estephanie g non-blacks MDRD (S/P/Bld) [Vol rate/Area]Ordered By: Riccardo Hillman on 08-01-2024 Glomerular filtration rate (GFR) estimation/1.73 sq m using serum, plasma, or whole b 90 >60 [facility] Glucose Ql (U)Ordered By: Bertram Hillman on 08-01-2024 Urine glucose detection 1000 mg/dl High Normal [facility] Glucose [Mass/Vol]Ordered By : Riccardo Hillman on 08-01-2024 Serum glucose measurement (mass/volume) 410 mg/dL High 70-99 [facility] Glucose measurement at bedsi deOrdered By: Riccardo Hillman on 08-01-2024 Glucose measurement at bedside 225 mg/dL High 74-106 [facility] Hematocrit Auto (Bld) [Volum e fraction]Ordered By: Riccardo Hillman on 08-01-2024 Automated blood hematocrit (percentage) 40.8 % 37-47 [facility] Hemoglobin measurementOrdere d By: Riccardo Hillman on 08-01-2024 Hemoglobin measurement 13.6 g/dL 12.0-15.0 [facility] Immature granulocytes/100 WB C Auto (Bld)Ordered By: Riccardo Hillman on 08-01-2024 Automated immature granulocyte percentage 0.300 % 0.0-0.9 [facility] Leukocyte esterase Test stri p Ql (U)Ordered By: Riccardo Hillman on 08-01-2024 Urine leukocyte esterase detection by dipstick 500 /ul High Negative [facility] Lipaseon 08-01-2024 Lipase [Catalytic activity/Vol] 17 U/L Normal 13-75 [facility] Comment on above: Result Comment: Gege edgar note:LIPASE revised reference range effective 22.New Lipase methodology. Expected to produce lower valuesthan the previous assay method.NEW Reference Range: 13 - 75 U/L Performed By: #### L 501.2450, L500.4050, L100.0100 ####[facility] [address] [place], [address] Lipase measurementOrdered By : Riccardo Hillman on 08-01-2024 Lipase measurement 17 U/L 13-75 [facility] Lymphocytes Auto (Unsp spec) [#/Vol]Ordered By: Riccardo Hillman on 08-01-2024 Absolute lymphocyte count 1.55 X10^3/uL 0.83-4.51 [facility] Lymphocytes/100 WBC Auto (Un sp spec)Ordered By: Riccardo Hillman on 08-01-2024 Automated lymphocyte count as percentage of total leukocytes 11.7 % Low 19-41 [facility] MCV (RBC) [Entitic vol]Order ed By: Riccardo Hillman on 08-01-2024 MCV (mean corpuscular volume) determination 83.1 fL 81-99 [facility] Mean corpuscular hemoglobin (MCH) determinationOrdered By: Riccardo Hillman on 08-01-2024 Mean corpuscular hemoglobin (MCH) determination 27.7 pg 27.0-32.0 [facility] Mean corpuscular hemoglobin concentration (MCHC) determinationOrdered By: Riccardo Hillman on 08-01-2024 Mean corpuscular hemoglobin concentration (MCHC) determination 33.3 g/dL 32-36 [facility] Mean platelet volume determi nationOrdered By: Riccardo Hillman on 08-01-2024 Mean platelet volume determination 9.9 fl 6.2-12.0 [facility] Microscopic analysis of urin e for red blood cells (RBC)Ordered By: Riccardo Hillman on 08-01-2024 Microscopic analysis of urine for red blood cells (RBC) 0-5 SEEN /hpf 5-10 [facility] Monocyte percentageOrdered B y: Riccardo Hillman on 08-01-2024 Monocyte percentage 3.4 % 0-10 [facility] Mucus LM Ql (Urine sed)Order ed By: Riccardo Hillman on 08-01-2024 Mucus detection in urine sediment by light microscopy 0 SEEN /hpf [facility] Neutrophil percentageOrdered By: Riccardo Hillman on 08-01-2024 Neutrophil percentage 83.9 % High 47-70 [facility] No Panel InformationOrdered By: Riccardo Hillman on 08-01-2024 24 U/L <32 [facility] Nucleated red blood cell per centageOrdered By: Riccardo Hillman on 08-01-2024 Nucleated red blood cell percentage 0 % 0-5 [facility] Platelet countOrdered By: Bertram Hillman on 08-01-2024 Platelet count 338 K/mm3 150-450 [facility] Potassium [Moles/Vol]Ordered By: Riccardo Hillman on 08-01-2024 Serum or plasma potassium measurement 3.5 mmol/L 3.3-5.1 [facility] Protein Test strip Ql (U)Ord ered By: Riccardo Hillman on 08-01-2024 Urine protein assay by test strip, semi-quantitative 100 mg/dl High Negative [facility] RBC Auto (Bld) [#/Vol]Ordere d By: Riccardo Hillman on 08-01-2024 Automated blood erythrocyte count 4.91 M/mm3 4.2-5.4 [facility] Serum globulin measurementOr dered By: Riccardo Hillman on 08-01-2024 Serum globulin measurement 4.0 g/dL 2.2-4.2 [facility] Sodium [Moles/Vol]Ordered By : Riccardo Hillman on 08-01-2024 Serum or plasma sodium measurement (moles/volume) 132 mmol/L Low 133-145 [facility] Specific gravity (U) [Rel de nsity]Ordered By: Riccardo Hillman on 08-01-2024 Urine specific gravity measurement 1.010 1.002-1.03 0 [facility] Total proteinOrdered By: Guerita meneses Rafy on 08-01-2024 Total protein 8.1 g/dL 5.9-8.4 [facility] Urea nitrogen [Mass/Vol]Orde red By: Riccardo Hillman on 08-01-2024 Serum or plasma urea nitrogen measurement (mass/volume) 9 mg/dL 4-19 [facility] Urinalysis, Completeon 08-01 BACTERIA 4+ /hpf Normal None Seen [facility] Comment on above: Order Comment: LUISA CTOR TO SPECIFY Performed By: #### L 400.0001 ####[facility] [address] [place] [address] EPI,SQUAMOUS 0-5 SEEN Normal 5-10 [facility] Comment on above: Order Comment: LUISA CTOR TO SPECIFY Performed By: #### L 400.0001 ####[facility] [address] [place] [address] RBC 0-5 SEEN Normal 0-5 [facility] Comment on above: Order Comment: LUISA CTOR TO SPECIFY Performed By: #### L 400.0001 ####[facility] [address] [place] [address] YEAST 1+ /hpf Normal None Seen [facility] Comment on above: Order Comment: LUISA CTOR TO SPECIFY Performed By: #### L 400.0001 ####[facility] [address] [place] [address] WBC 50-100 SEEN Normal 0-5 [facility] Comment on above: Order Comment: LUISA CTOR TO SPECIFY Performed By: #### L 400.0001 ####[facility] [address] [place] [address] Mucus Ql (Urine sed) 0 SEEN Normal [facility] Comment on above: Order Comment: LUISA CTOR TO SPECIFY Performed By: #### L 400.0001 ####[facility] [address] [place], [place], [address] Urine blood detectionOrdered By: Riccardo Hillman on 08-01-2024 Urine blood detection 50 /ul High Negative [facility] Urine cultureOrdered By: Guerita Hillman on 08-01-2024 Urine culture ESBL Escherichia coli Abnormal [facility] Urine total bilirubin detect ion by test stripOrdered By: Riccardo Hillman on 08-01-2024 Urine total bilirubin detection by test strip Negative Negative [facility] Urobilinogen Ql (U)Ordered B y: Riccardo Hillman on 08-01-2024 Urine urobilinogen measurement Normal mg/dl Normal [facility] White blood cell (WBC) count Ordered By: Riccardo Hillman on 08-01-2024 White blood cell (WBC) count 13.3 K/mm3 High 4.4-11.0 [facility] White blood cell countOrdere d By: Riccardo Hillman on 08-01-2024 White blood cell count 50-100 SEEN /hpf 0-5 [facility] Yeast LM.HPF (Urine sed) [#/ Area]Ordered By: Riccardo Hillman on 08-01-2024 Urine sediment yeast count by microscopy (number/high powered field) 1+ /hpf None Seen [facility] pH (U)Ordered By: Riccardo rondon on 08-01-2024 Urine pH 6.5 5.0 - 8.0 [facility] Absolute neutrophil countOrd ered By: Nicole Trujillo on 07-03-2024 Absolute neutrophil count 2.6 X10^3/uL 2.0-7.7 [facility] Basic Metabolic Profile (BMP )on 07-03-2024 BUN/CRE 24.4 RATIO High 10-20 [facility] Comment on above: Performed By: #### L 500.2500, L100.0100 ####[facility] [address] [facility] [place], [place], [id number] CA,Total 8.6 mg/dL Normal 8.5-10.1 [facility] Comment on above: Performed By: #### L 500.2500, L100.0100 ####[facility] [address] [place], [address] Chloride [Moles/Vol] 105 mmol/L Normal 98-107 [facility] Comment on above: Performed By: #### L 500.2500, L100.0100 ####[facility] [address] [place], [address] CO2 [Moles/Vol] 27.0 mmol/L Normal 21.0-32.0 [facility] Comment on above: Performed By: #### L 500.2500, L100.0100 ####[facility] [address] [place], [address] Creatinine [Mass/Vol] 0.61 mg/dL Normal 0.55-1.02 [facility] Comment on above: Result Comment: The validity of the calculated GFR GFRAA in patients over70 years has not been determined. Clinical correlation isessential. Performed By: #### L 500.2500, L100.0100 ####[facility] [address] [place], [address] ECRCL 119.69 ml/min Normal [facility] Comment on above: Performed By: #### L 500.2500, L100.0100 ####[facility] [address] [place], [address] EST GFR - AA 131 mL/min Normal >60 [facility] Comment on above: Result Comment: Afri can Citizen Of [place] GFR Calc Performed By: #### L 500.2500, L100.0100 ####[facility] [address] [place], [address] GAP 5 Normal 5-15 [facility] Comment on above: Performed By: #### L 500.2500, L100.0100 ####[facility] [address] [place], [address] GFR/1.73 sq M.predicted among non-blacks MDRD (S/P/Bld) [Vol rate/Area] 108 mL/min/{1.73_m2} Normal >60 [facility] Comment on above: Result Comment: Non- GFR Calc Performed By: #### L 500.2500, L100.0100 ####[facility] [address] [place], [address] Glucose [Mass/Vol] 163 mg/dL High 74-106 [facility] Comment on above: Result Comment: Fast ing Glucose result greater than or equal to 126 mg/dLsuggests DIABETES MELLITUS per A.D.A. criteria. Performed By: #### L 500.2500, L100.0100 ####[facility] [address] [place], [address] Potassium [Moles/Vol] 3.4 mmol/L Low 3.5-5.1 [facility] Comment on above: Performed By: #### L 500.2500, L100.0100 ####[facility] [address] [place], [address] Sodium [Moles/Vol] 137 mmol/L Normal 136-145 [facility] Comment on above: Performed By: #### L 500.2500, L100.0100 ####[facility] [address] [place], [address] Urea nitrogen [Mass/Vol] 15 mg/dL Normal 7-18 [facility] Comment on above: Performed By: #### L 500.2500, L100.0100 ####[facility] [address] [place], [address] Basophil percentageOrdered B y: Nicole Trujillo on 07-03-2024 Basophil percentage 0.4 % 0-1 [facility] Bedside Glucoseon 07-03-2024 FINGERSTICK GLU 180 mg/dL High 74-106 [facility] Comment on above: Result Comment: TALIA CHAMBERS OF PATIENT CARE PER NURSING PROTOCOL Performed By: #### L 501.080 ####[facility] [address] [place], [address] FINGERSTICK GLU 137 mg/dL High 74-106 [facility] Comment on above: Result Comment: TALIA CHAMBERS OF PATIENT CARE PER NURSING PROTOCOL Performed By: #### L 501.080 ####[facility] [address] [place], [address] Blood urea nitrogen (BUN)/cr eatinine ratioOrdered By: Nicole Trujillo on 07-03-2024 Blood urea nitrogen (BUN)/creatinine ratio 24.4 RATIO High 10-20 [facility] CBC W/Diff, Automatedon 06-06 Absolute Lymph 1.43 X10 3/uL Normal 0.83-4.51 [facility] Comment on above: Performed By: #### L 500.2500, L100.0100 ####[facility] [address] [place], [address] Absolute Neut 2.6 X10 3/uL Normal 2.0-7.7 [facility] Comment on above: Performed By: #### L 500.2500, L100.0100 ####[facility] [address] [place], [address] Basophils/100 WBC (Bld) 0.4 % Normal 0-1 [facility] Comment on above: Performed By: #### L 500.2500, L100.0100 ####[facility] [address] [place], [address] Eosinophils/100 WBC (Bld) 0.7 % Normal 0-5 [facility] Comment on above: Performed By: #### L 500.2500, L100.0100 ####[facility] [address] [place], [address] Erythrocyte distribution width (RBC) [Ratio] 14.3 % Normal 11.6-14.6 [facility] Comment on above: Performed By: #### L 500.2500, L100.0100 ####[facility] [address] [place], [address] Hematocrit (Bld) [Volume fraction] 32.6 % Low 37-47 [facility] Comment on above: Performed By: #### L 500.2500, L100.0100 ####[facility] [address] [place], [address] Hemoglobin (Bld) [Mass/Vol] 10.8 g/dL Low 12.0-15.0 [facility] Comment on above: Performed By: #### L 500.2500, L100.0100 ####[facility] [address] [place], [address] IG% 0.700 Normal 0.0-0.9 [facility] Comment on above: Result Comment: IG% - Immature Granulocytes (promyelocytes, myelocytes andmetamyelocytes) > 1% indicates that a LEFT SHIFT is Present. Performed By: #### L 500.2500, L100.0100 ####[facility] [address] [place], [address] Lymphocytes/100 WBC (Bld) 32.0 % Normal 19-41 [facility] Comment on above: Performed By: #### L 500.2500, L100.0100 ####[facility] [address] [place], [address] MCH (RBC) [Entitic mass] 27.2 pg Normal 27.0-32.0 [facility] Comment on above: Performed By: #### L 500.2500, L100.0100 ####[facility] [address] [place], [address] MCHC (RBC) [Mass/Vol] 33.1 g/dL Normal 32-36 [facility] Comment on above: Performed By: #### L 500.2500, L100.0100 ####[facility] [address] [place], [address] MCV (RBC) [Entitic vol] 82.1 fL Normal 81-99 [facility] Comment on above: Performed By: #### L 500.2500, L100.0100 ####[facility] [address] [place], [address] Monocytes/100 WBC (Bld) 8.7 % Normal 0-10 [facility] Comment on above: Performed By: #### L 500.2500, L100.0100 ####[facility] [address] [place], [address] Neutrophils/100 WBC (Bld) 57.5 % Normal 47-70 [facility] Comment on above: Performed By: #### L 500.2500, L100.0100 ####[facility] [address] [place], [address] Nucleated RBC (Bld) [#/Vol] 0 10*3/uL Normal 0-5 [facility] Comment on above: Performed By: #### L 500.2500, L100.0100 ####[facility] [address] [place], [address] Platelet mean volume (Bld) [Entitic vol] 10.2 fL Normal 6.2-12.0 [facility] Comment on above: Performed By: #### L 500.2500, L100.0100 ####[facility] [address] [place], [address] Platelets (Bld) [#/Vol] 192 10*3/uL Normal 150-450 [facility] Comment on above: Performed By: #### L 500.2500, L100.0100 ####[facility] [address] [place], [address] RBC (Bld) [#/Vol] 3.97 10*6/uL Low 4.2-5.4 [facility] Comment on above: Performed By: #### L 500.2500, L100.0100 ####[facility] [address] [place], [address] RDW SD 42.9 fl Normal 35.1-43.9 [facility] Comment on above: Performed By: #### L 500.2500, L100.0100 ####[facility] [address] [place], [address] WBC (Bld) [#/Vol] 4.5 10*3/uL Normal 4.4-11.0 [facility] Comment on above: Performed By: #### L 500.2500, L100.0100 ####[facility] [address] [place], [address] Calcium [Mass/Vol]Ordered By : Nicole Trujillo on 07-03-2024 Serum or plasma calcium measurement (mass/volume) 8.6 mg/dL 8.5-10.1 [facility] Carbon dioxide measurementOr dered By: Nciole Trujillo on 07-03-2024 Carbon dioxide measurement 27.0 mmol/L 21.0-32.0 [facility] Chloride measurementOrdered By: Nicole Trujillo on 07-03-2024 Chloride measurement 105 mmol/L 98-107 [facility] Creatinine [Mass/Vol]Ordered By: Nicole Trujillo on 07-03-2024 Serum or plasma creatinine measurement (mass/volume) 0.61 mg/dL 0.55-1.02 [facility] Eosinophil percentageOrdered By: Nicole Trujillo on 07-03-2024 Eosinophil percentage 0.7 % 0-5 [facility] Erythrocyte distribution wid th (RBC) [Ratio]Ordered By: Nicole Trujillo on 07-03-2024 Erythrocyte distribution width ratio 14.3 % 11.6-14.6 [facility] Erythrocyte distribution wid th standard deviationOrdered By: Nicole Trujillo on 07-03-2024 Erythrocyte distribution width standard deviation 42.9 fl 35.1-43.9 [facility] Estimated glomerular filtrat ion rate (GFR) AmericanOrdered By: Nicole Trujillo on 07-03-2024 Estimated glomerular filtration rate (GFR) 131 mL/min >60 [facility] Estimation of creatinine sylvian aranceOrdered By: Nicole Trujillo on 07-03-2024 Estimation of creatinine clearance 119.69 ml/min [facility] Glomerular filtration rate ( GFR) estimationOrdered By: Nicole Trujillo on 07-03-2024 Glomerular filtration rate (GFR) estimation 108 mL/min >60 [facility] Glucose measurementOrdered B y: Nicole Trujillo on 07-03-2024 Glucose measurement 163 mg/dL High 74-106 [facility] Glucose measurement at bedsi deOrdered By: Nicole Trujillo on 07-03-2024 Glucose measurement at bedside 180 mg/dL High 74-106 [facility] Hematocrit Auto (Bld) [Volum e fraction]Ordered By: Nicole Trujillo on 07-03-2024 Automated blood hematocrit (percentage) 32.6 % Low 37-47 [facility] Hemoglobin measurementOrdere d By: Nicole Trujillo on 07-03-2024 Hemoglobin measurement 10.8 g/dL Low 12.0-15.0 [facility] Immature granulocytes/100 WB C Auto (Bld)Ordered By: Nicole Trujillo on 07-03-2024 Automated immature granulocyte percentage 0.700 % 0.0-0.9 [facility] Lymphocytes Auto (Unsp spec) [#/Vol]Ordered By: Nicole Trujillo on 07-03-2024 Absolute lymphocyte count 1.43 X10^3/uL 0.83-4.51 [facility] Lymphocytes/100 WBC Auto (Un sp spec)Ordered By: Nicole Trujillo on 07-03-2024 Automated lymphocyte count as percentage of total leukocytes 32.0 % 19-41 [facility] MCV (RBC) [Entitic vol]Order ed By: Nicole Trujillo on 07-03-2024 MCV (mean corpuscular volume) determination 82.1 fL 81-99 [facility] Mean corpuscular hemoglobin (MCH) determinationOrdered By: Nicole Trujillo on 07-03-2024 Mean corpuscular hemoglobin (MCH) determination 27.2 pg 27.0-32.0 [facility] Mean corpuscular hemoglobin concentration (MCHC) determinationOrdered By: Nicole Trujillo on 07-03-2024 Mean corpuscular hemoglobin concentration (MCHC) determination 33.1 g/dL 32-36 [facility] Mean platelet volume determi nationOrdered By: Nicole Trujillo on 07-03-2024 Mean platelet volume determination 10.2 fl 6.2-12.0 [facility] Monocyte percentageOrdered B y: Nicole Trujillo on 07-03-2024 Monocyte percentage 8.7 % 0-10 [facility] Neutrophil percentageOrdered By: Nicole Trujillo on 07-03-2024 Neutrophil percentage 57.5 % 47-70 [facility] Nucleated red blood cell per centageOrdered By: Nicole Trujillo on 07-03-2024 Nucleated red blood cell percentage 0 % 0-5 [facility] Platelet countOrdered By: Mary Trujillo on 07-03-2024 Platelet count 192 K/mm3 150-450 [facility] Potassium measurementOrdered By: Nicole Trujillo on 07-03-2024 Potassium measurement 3.4 mmol/L Low 3.5-5.1 [facility] RBC Auto (Bld) [#/Vol]Ordere d By: Nicole Trujillo on 07-03-2024 Automated blood erythrocyte count 3.97 M/mm3 Low 4.2-5.4 [facility] Serum anion gap measurementO rdered By: Nicole Trujillo on 07-03-2024 Serum anion gap measurement 5 5-15 [facility] Sodium levelOrdered By: Ifrah Trujillo on 07-03-2024 Sodium level 137 mmol/L 136-145 [facility] Urea nitrogen [Mass/Vol]Orde red By: Nicole Trujillo on 07-03-2024 Serum or plasma urea nitrogen measurement (mass/volume) 15 mg/dL 7-18 [facility] White blood cell (WBC) count Ordered By: Nicole Trujillo on 07-03-2024 White blood cell (WBC) count 4.5 K/mm3 4.4-11.0 [facility] Abdomen/Pel W ORAL Cont Only on 07-02-2024 Abdomen/Pel W ORAL Cont Only Normal [facility] Basic Metabolic Profile (BMP )on 07-02-2024 BUN/CRE 26.7 RATIO High 10-20 [facility] Comment on above: Performed By: #### L 501.5200, L100.0100, L501.2300, L500.2500 ####[facility] [address] [place], [address] CA,Total 8.3 mg/dL Low 8.5-10.1 [facility] Comment on above: Performed By: #### L 501.5200, L100.0100, L501.2300, L500.2500 ####[facility] [address] [place], [address] Chloride [Moles/Vol] 104 mmol/L Normal 98-107 [facility] Comment on above: Performed By: #### L 501.5200, L100.0100, L501.2300, L500.2500 ####[facility] [address] [place], [address] CO2 [Moles/Vol] 24.0 mmol/L Normal 21.0-32.0 [facility] Comment on above: Performed By: #### L 501.5200, L100.0100, L501.2300, L500.2500 ####[facility] [address] [place], [address] Creatinine [Mass/Vol] 0.94 mg/dL Normal 0.55-1.02 [facility] Comment on above: Result Comment: The validity of the calculated GFR GFRAA in patients over70 years has not been determined. Clinical correlation isessential. Performed By: #### L 501.5200, L100.0100, L501.2300, L500.2500 ####[facility] [address] [place], [address] ECRCL 76.61 ml/min Normal [facility] Comment on above: Performed By: #### L 501.5200, L100.0100, L501.2300, L500.2500 ####[facility] [address] [place], [address] EST GFR - AA 81 mL/min Normal >60 [facility] Comment on above: Result Comment: Afri can Citizen Of [place] GFR Calc Performed By: #### L 501.5200, L100.0100, L501.2300, L500.2500 ####[facility] [address] [place], [address] GAP 8 Normal 5-15 [facility] Comment on above: Performed By: #### L 501.5200, L100.0100, L501.2300, L500.2500 ####[facility] [address] [place], [address] GFR/1.73 sq M.predicted among non-blacks MDRD (S/P/Bld) [Vol rate/Area] 67 mL/min/{1.73_m2} Normal >60 [facility] Comment on above: Result Comment: Non- GFR Calc Performed By: #### L 501.5200, L100.0100, L501.2300, L500.2500 ####[facility] [address] [place], [address] Glucose [Mass/Vol] 134 mg/dL High 74-106 [facility] Comment on above: Result Comment: Fast ing Glucose result greater than or equal to 126 mg/dLsuggests DIABETES MELLITUS per A.D.A. criteria. Performed By: #### L 501.5200, L100.0100, L501.2300, L500.2500 ####[facility] [address] [place], [address] Potassium [Moles/Vol] 3.6 mmol/L Normal 3.5-5.1 [facility] Comment on above: Performed By: #### L 501.5200, L100.0100, L501.2300, L500.2500 ####[facility] [address] [place], [address] Sodium [Moles/Vol] 137 mmol/L Normal 136-145 [facility] Comment on above: Performed By: #### L 501.5200, L100.0100, L501.2300, L500.2500 ####[facility] [address] [place], [address] Urea nitrogen [Mass/Vol] 25 mg/dL High 7-18 [facility] Comment on above: Performed By: #### L 501.5200, L100.0100, L501.2300, L500.2500 ####[facility] [address] [place], [address] Bedside Glucoseon 07-02-2024 FINGERSTICK GLU 159 mg/dL High 74-106 [facility] Comment on above: Result Comment: TALIA GEMENT OF PATIENT CARE PER NURSING PROTOCOL Performed By: #### L 501.080 ####[facility] [address] [place], [address] FINGERSTICK GLU 190 mg/dL High 74-106 [facility] Comment on above: Result Comment: TALIA GEMENT OF PATIENT CARE PER NURSING PROTOCOL Performed By: #### L 501.080 ####[facility] [address] [place], [address] FINGERSTICK GLU 155 mg/dL High 74-106 [facility] Comment on above: Result Comment: TALIA GEMENT OF PATIENT CARE PER NURSING PROTOCOL Performed By: #### L 501.080 ####[facility] [address] [place], [address] FINGERSTICK GLU 128 mg/dL High 74-106 [facility] Comment on above: Result Comment: TALIA GEMENT OF PATIENT CARE PER NURSING PROTOCOL Performed By: #### L 501.080 ####[facility] [address] [place], [address] FINGERSTICK GLU 215 mg/dL High 74-106 [facility] Comment on above: Result Comment: TALIA GEMENT OF PATIENT CARE PER NURSING PROTOCOL Performed By: #### L 501.080 ####[facility] [address] [place], [address] CBC W/Diff, Automatedon 01-2 Absolute Lymph 2.11 X10 3/uL Normal 0.83-4.51 [facility] Comment on above: Performed By: #### L 501.5200, L100.0100, L501.2300, L500.2500 ####[facility] [address] [place], [address] Absolute Neut 2.4 X10 3/uL Normal 2.0-7.7 [facility] Comment on above: Performed By: #### L 501.5200, L100.0100, L501.2300, L500.2500 ####[facility] [address] [place], [address] Basophils/100 WBC (Bld) 0.4 % Normal 0-1 [facility] Comment on above: Performed By: #### L 501.5200, L100.0100, L501.2300, L500.2500 ####[facility] [address] [place], [address] Eosinophils/100 WBC (Bld) 0.6 % Normal 0-5 [facility] Comment on above: Performed By: #### L 501.5200, L100.0100, L501.2300, L500.2500 ####[facility] [address] [place], [address] Erythrocyte distribution width (RBC) [Ratio] 14.6 % Normal 11.6-14.6 [facility] Comment on above: Performed By: #### L 501.5200, L100.0100, L501.2300, L500.2500 ####[facility] [address] [place], [address] Hematocrit (Bld) [Volume fraction] 29.5 % Low 37-47 [facility] Comment on above: Performed By: #### L 501.5200, L100.0100, L501.2300, L500.2500 ####[facility] [address] [place], [address] Hemoglobin (Bld) [Mass/Vol] 9.5 g/dL Low 12.0-15.0 [facility] Comment on above: Performed By: #### L 501.5200, L100.0100, L501.2300, L500.2500 ####[facility] [address] [place], [address] IG% 0.400 Normal 0.0-0.9 [facility] Comment on above: Result Comment: IG% - Immature Granulocytes (promyelocytes, myelocytes andmetamyelocytes) > 1% indicates that a LEFT SHIFT is Present. Performed By: #### L 501.5200, L100.0100, L501.2300, L500.2500 ####[facility] [address] [place], [address] Lymphocytes/100 WBC (Bld) 42.8 % High 19-41 [facility] Comment on above: Performed By: #### L 501.5200, L100.0100, L501.2300, L500.2500 ####[facility] [address] [place], [address] MCH (RBC) [Entitic mass] 27.1 pg Normal 27.0-32.0 [facility] Comment on above: Performed By: #### L 501.5200, L100.0100, L501.2300, L500.2500 ####[facility] [address] [place], [address] MCHC (RBC) [Mass/Vol] 32.2 g/dL Normal 32-36 [facility] Comment on above: Performed By: #### L 501.5200, L100.0100, L501.2300, L500.2500 ####[facility] [address] [place], [address] MCV (RBC) [Entitic vol] 84.0 fL Normal 81-99 [facility] Comment on above: Performed By: #### L 501.5200, L100.0100, L501.2300, L500.2500 ####[facility] [address] [place], [address] Monocytes/100 WBC (Bld) 8.1 % Normal 0-10 [facility] Comment on above: Performed By: #### L 501.5200, L100.0100, L501.2300, L500.2500 ####[facility] [address] [place], [address] Neutrophils/100 WBC (Bld) 47.7 % Normal 47-70 [facility] Comment on above: Performed By: #### L 501.5200, L100.0100, L501.2300, L500.2500 ####[facility] [address] [place], [address] Nucleated RBC (Bld) [#/Vol] 0 10*3/uL Normal 0-5 [facility] Comment on above: Performed By: #### L 501.5200, L100.0100, L501.2300, L500.2500 ####[facility] [address] [place], [address] Platelet mean volume (Bld) [Entitic vol] 9.9 fL Normal 6.2-12.0 [facility] Comment on above: Performed By: #### L 501.5200, L100.0100, L501.2300, L500.2500 ####[facility] [address] [place], [address] Platelets (Bld) [#/Vol] 174 10*3/uL Normal 150-450 [facility] Comment on above: Performed By: #### L 501.5200, L100.0100, L501.2300, L500.2500 ####[facility] [address] [place], [address] RBC (Bld) [#/Vol] 3.51 10*6/uL Low 4.2-5.4 [facility] Comment on above: Performed By: #### L 501.5200, L100.0100, L501.2300, L500.2500 ####[facility] [address] [place], [address] RDW SD 44.8 fl High 35.1-43.9 [facility] Comment on above: Performed By: #### L 501.5200, L100.0100, L501.2300, L500.2500 ####[facility] [address] [place], [address] WBC (Bld) [#/Vol] 4.9 10*3/uL Normal 4.4-11.0 [facility] Comment on above: Performed By: #### L 501.5200, L100.0100, L501.2300, L500.2500 ####[facility] [address] [place], [address] Consultation - Infectious Dx on 07-02-2024 Consultation - Infectious Dx Normal [facility] Ferritinon 07-02-2024 Ferritin [Mass/Vol] 148 ng/mL Normal 8-252 [facility] Comment on above: Performed By: #### L 503.6030, L503.6550 ####[facility] [address] [place], [address] Ferritin measurementOrdered By: Nicole Trujillo on 07-02-2024 Ferritin measurement 148 ng/mL 8-252 [facility] Iron (Unsp spec) [Mass/Mass] Ordered By: Nicole Trujillo on 07-02-2024 Iron measurement (mass/mass) 106 ug/dL 50-170 [facility] Iron saturation [Mass fracti on]Ordered By: Nicole Trujillo on 07-02-2024 Serum or plasma iron saturation measurement (mass fraction) 39.8 % 15.0-55.0 [facility] Iron+Iron Binding Capacityon 07-02-2024 Iron [Mass/Vol] 106 ug/dL Normal 50-170 [facility] Comment on above: Performed By: #### L 503.6030, L503.6550 ####[facility] [address] [place], [address] IRON SATURATION 39.8 Normal 15.0-55.0 [facility] Comment on above: Performed By: #### L 503.6030, L503.6550 ####[facility] [address] [place], [address] TIBC 266 ug/dL Normal 250-450 [facility] Comment on above: Performed By: #### L 503.6030, L503.6550 ####[facility] [address] [place], [address] Magnesiumon 07-02-2024 Magnesium [Mass/Vol] 2.0 mg/dL Normal 1.6-2.6 [facility] Comment on above: Performed By: #### L 501.5200, L100.0100, L501.2300, L500.2500 ####[facility] [address] [place], [address] Magnesium measurementOrdered By: Nicole Trujillo on 07-02-2024 Magnesium measurement 2.0 mg/dL 1.6-2.6 [facility] Phosphoruson 07-02-2024 Phosphate [Mass/Vol] 2.8 mg/dL Normal 2.5-4.9 [facility] Comment on above: Performed By: #### L 501.5200, L100.0100, L501.2300, L500.2500 ####[facility] [address] [place], [address] Phosphorus measurementOrdere d By: Nicole Trujillo on 07-02-2024 Phosphorus measurement 2.8 mg/dL 2.5-4.9 [facility] TIBCOrdered By: Nicole Trujillo on 07-02-2024 TIBC 266 ug/dL 250-450 [facility] Urine Cultureon 07-02-2024 URC Normal [facility] Comment on above: Performed By: #### M 100.2200 ####[facility] [address] [place], [address] ALP [Catalytic activity/Vol] Ordered By: Nicole Trujillo on 07-01-2024 Serum or plasma alkaline phosphatase measurement 80 U/L 45-117 [facility] ALT [Catalytic activity/Vol] Ordered By: Nicole Trujillo on 07-01-2024 Serum or plasma alanine aminotransferase (ALT) measurement 22 U/L 13-56 [facility] Albumin [Mass/Vol]Ordered By : Nicole Trujillo on 07-01-2024 Serum or plasma albumin measurement (mass/volume) 2.7 g/dL Low 3.2-5.0 [facility] Albumin to globulin ratioOrd ered By: Nicole Trujillo on 07-01-2024 Albumin to globulin ratio 0.8 RATIO Low 0.9-2.4 [facility] Bedside Glucoseon 07-01-2024 FINGERSTICK GLU 254 mg/dL High 74-106 [facility] Comment on above: Result Comment: TALIA GEMENT OF PATIENT CARE PER NURSING PROTOCOL Performed By: #### L 501.080 ####[facility] [address] [place], [address] FINGERSTICK GLU 195 mg/dL High 74-106 [facility] Comment on above: Result Comment: TALIA GEMENT OF PATIENT CARE PER NURSING PROTOCOL Performed By: #### L 501.080 ####[facility] [address] [place], [address] FINGERSTICK GLU 117 mg/dL High 74-106 [facility] Comment on above: Result Comment: TALIA GEMENT OF PATIENT CARE PER NURSING PROTOCOL Performed By: #### L 501.080 ####[facility] [address] [place], [address] Bilirubin, totalOrdered By: Nicole Trujillo on 07-01-2024 Bilirubin, total 1.10 mg/dL High 0.20-1.00 [facility] CBC W/Diff, Automatedon 06-05 Absolute Lymph 1.40 X10 3/uL Normal 0.83-4.51 [facility] Comment on above: Performed By: #### L 500.4050, L501.2300, L100.0100, L501.9520, L501.5200 ####[facility] [address] [place], [address] Absolute Neut 3.1 X10 3/uL Normal 2.0-7.7 [facility] Comment on above: Performed By: #### L 500.4050, L501.2300, L100.0100, L501.9520, L501.5200 ####[facility] [address] [place], [address] Basophils/100 WBC (Bld) 0.4 % Normal 0-1 [facility] Comment on above: Performed By: #### L 500.4050, L501.2300, L100.0100, L501.9520, L501.5200 ####[facility] [address] [place], [address] Eosinophils/100 WBC (Bld) 0.2 % Normal 0-5 [facility] Comment on above: Performed By: #### L 500.4050, L501.2300, L100.0100, L501.9520, L501.5200 ####[facility] [address] [place], [address] Erythrocyte distribution width (RBC) [Ratio] 14.6 % Normal 11.6-14.6 [facility] Comment on above: Performed By: #### L 500.4050, L501.2300, L100.0100, L501.9520, L501.5200 ####[facility] [address] [place], [address] Hematocrit (Bld) [Volume fraction] 33.5 % Low 37-47 [facility] Comment on above: Performed By: #### L 500.4050, L501.2300, L100.0100, L501.9520, L501.5200 ####[facility] [address] [place], [address] Hemoglobin (Bld) [Mass/Vol] 10.7 g/dL Low 12.0-15.0 [facility] Comment on above: Performed By: #### L 500.4050, L501.2300, L100.0100, L501.9520, L501.5200 ####[facility] [address] [place], [address] IG% 0.200 Normal 0.0-0.9 [facility] Comment on above: Result Comment: IG% - Immature Granulocytes (promyelocytes, myelocytes andmetamyelocytes) > 1% indicates that a LEFT SHIFT is Present. Performed By: #### L 500.4050, L501.2300, L100.0100, L501.9520, L501.5200 ####[facility] [address] [place], [address] Lymphocytes/100 WBC (Bld) 28.5 % Normal 19-41 [facility] Comment on above: Performed By: #### L 500.4050, L501.2300, L100.0100, L501.9520, L501.5200 ####[facility] [address] [place], [address] MCH (RBC) [Entitic mass] 26.7 pg Low 27.0-32.0 [facility] Comment on above: Performed By: #### L 500.4050, L501.2300, L100.0100, L501.9520, L501.5200 ####[facility] [address] [place], [address] MCHC (RBC) [Mass/Vol] 31.9 g/dL Low 32-36 [facility] Comment on above: Performed By: #### L 500.4050, L501.2300, L100.0100, L501.9520, L501.5200 ####[facility] [address] [place], [address] MCV (RBC) [Entitic vol] 83.5 fL Normal 81-99 [facility] Comment on above: Performed By: #### L 500.4050, L501.2300, L100.0100, L501.9520, L501.5200 ####[facility] [address] [place], [address] Monocytes/100 WBC (Bld) 6.7 % Normal 0-10 [facility] Comment on above: Performed By: #### L 500.4050, L501.2300, L100.0100, L501.9520, L501.5200 ####[facility] [address] [place], [address] Neutrophils/100 WBC (Bld) 64.0 % Normal 47-70 [facility] Comment on above: Performed By: #### L 500.4050, L501.2300, L100.0100, L501.9520, L501.5200 ####[facility] [address] [place], [address] Nucleated RBC (Bld) [#/Vol] 0 10*3/uL Normal 0-5 [facility] Comment on above: Performed By: #### L 500.4050, L501.2300, L100.0100, L501.9520, L501.5200 ####[facility] [address] [place], [address] Platelet mean volume (Bld) [Entitic vol] 9.6 fL Normal 6.2-12.0 [facility] Comment on above: Performed By: #### L 500.4050, L501.2300, L100.0100, L501.9520, L501.5200 ####[facility] [address] [place], [address] Platelets (Bld) [#/Vol] 184 10*3/uL Normal 150-450 [facility] Comment on above: Performed By: #### L 500.4050, L501.2300, L100.0100, L501.9520, L501.5200 ####[facility] [address] [place], [address] RBC (Bld) [#/Vol] 4.01 10*6/uL Low 4.2-5.4 [facility] Comment on above: Performed By: #### L 500.4050, L501.2300, L100.0100, L501.9520, L501.5200 ####[facility] [address] [place], [address] RDW SD 44.7 fl High 35.1-43.9 [facility] Comment on above: Performed By: #### L 500.4050, L501.2300, L100.0100, L501.9520, L501.5200 ####[facility] [address] [place], [address] WBC (Bld) [#/Vol] 4.9 10*3/uL Normal 4.4-11.0 [facility] Comment on above: Performed By: #### L 500.4050, L501.2300, L100.0100, L501.9520, L501.5200 ####[facility] [address] [place], [address] Comprehensive Metabolic Prof ilon 07-01-2024 Albumin [Mass/Vol] 2.7 g/dL Low 3.2-5.0 [facility] Comment on above: Performed By: #### L 500.4050, L501.2300, L100.0100, L501.9520, L501.5200 ####[facility] [address] [place], [address] Albumin/Globulin [Mass ratio] 0.8 {ratio} Low 0.9-2.4 [facility] Comment on above: Performed By: #### L 500.4050, L501.2300, L100.0100, L501.9520, L501.5200 ####[facility] [facility] [address] [place], [address] ALK P 80 U/L Normal 45-117 [facility] Comment on above: Performed By: #### L 500.4050, L501.2300, L100.0100, L501.9520, L501.5200 ####[facility] [address] [place], [address] ALT [Catalytic activity/Vol] 22 U/L Normal 13-56 [facility] Comment on above: Performed By: #### L 500.4050, L501.2300, L100.0100, L501.9520, L501.5200 ####[facility] [address] [place], [address] AST [Catalytic activity/Vol] 24 U/L Normal 15-37 [facility] Comment on above: Performed By: #### L 500.4050, L501.2300, L100.0100, L501.9520, L501.5200 ####[facility] [address] [place], [address] Bilirubin [Mass/Vol] 1.10 mg/dL High 0.20-1.00 [facility] Comment on above: Result Comment: For patients on eltrombopag therapy, use of Dimension [place] TBIL is not recommended. Performed By: #### L 500.4050, L501.2300, L100.0100, L501.9520, L501.5200 ####[facility] [address] [place], [address] BUN/CRE 22.7 RATIO High 10-20 [facility] Comment on above: Performed By: #### L 500.4050, L501.2300, L100.0100, L501.9520, L501.5200 ####[facility] [address] [place], [address] CA,Total 8.5 mg/dL Normal 8.5-10.1 [facility] Comment on above: Performed By: #### L 500.4050, L501.2300, L100.0100, L501.9520, L501.5200 ####[facility] [address] [place], [address] Chloride [Moles/Vol] 107 mmol/L Normal 98-107 [facility] Comment on above: Performed By: #### L 500.4050, L501.2300, L100.0100, L501.9520, L501.5200 ####[facility] [address] [place], [address] CO2 [Moles/Vol] 21.0 mmol/L Normal 21.0-32.0 [facility] Comment on above: Performed By: #### L 500.4050, L501.2300, L100.0100, L501.9520, L501.5200 ####[facility] [address] [place], [address] Creatinine [Mass/Vol] 1.19 mg/dL High 0.55-1.02 [facility] Comment on above: Result Comment: The validity of the calculated GFR GFRAA in patients over70 years has not been determined. Clinical correlation isessential. Performed By: #### L 500.4050, L501.2300, L100.0100, L501.9520, L501.5200 ####[facility] [address] [place], [address] ECRCL 60.52 ml/min Normal [facility] Comment on above: Performed By: #### L 500.4050, L501.2300, L100.0100, L501.9520, L501.5200 ####[facility] [address] [place], [address] EST GFR - AA 61 mL/min Normal >60 [facility] Comment on above: Result Comment: Afri can Citizen [place] GFR Calc Performed By: #### L 500.4050, L501.2300, L100.0100, L501.9520, L501.5200 ####[facility] [address] [place], [address] GAP 9 Normal 5-15 [facility] Comment on above: Performed By: #### L 500.4050, L501.2300, L100.0100, L501.9520, L501.5200 ####[facility] [address] [place], [address] GFR/1.73 sq M.predicted among non-blacks MDRD (S/P/Bld) [Vol rate/Area] 51 mL/min/{1.73_m2} Low >60 [facility] Comment on above: Result Comment: Non- GFR Calc Performed By: #### L 500.4050, L501.2300, L100.0100, L501.9520, L501.5200 ####[facility] [address] [place], [address] Globulin (S) [Mass/Vol] 3.5 g/dL Normal 2.2-4.2 [facility] Comment on above: Performed By: #### L 500.4050, L501.2300, L100.0100, L501.9520, L501.5200 ####[facility] [address] [place], [address] Glucose [Mass/Vol] 159 mg/dL High 74-106 [facility] Comment on above: Result Comment: Fast ing Glucose result greater than or equal to 126 mg/dLsuggests DIABETES MELLITUS per A.D.A. criteria. Performed By: #### L 500.4050, L501.2300, L100.0100, L501.9520, L501.5200 ####[facility] [address] [place], [address] Potassium [Moles/Vol] 3.4 mmol/L Low 3.5-5.1 [facility] Comment on above: Performed By: #### L 500.4050, L501.2300, L100.0100, L501.9520, L501.5200 ####[facility] [address] [place], [address] Sodium [Moles/Vol] 136 mmol/L Normal 136-145 [facility] Comment on above: Performed By: #### L 500.4050, L501.2300, L100.0100, L501.9520, L501.5200 ####[facility] [address] [place], [address] T PROT 6.2 g/dL Low 6.4-8.2 [facility] Comment on above: Performed By: #### L 500.4050, L501.2300, L100.0100, L501.9520, L501.5200 ####[facility] [address] [place], [address] Urea nitrogen [Mass/Vol] 27 mg/dL High 7-18 [facility] Comment on above: Performed By: #### L 500.4050, L501.2300, L100.0100, L501.9520, L501.5200 ####[facility] [address] [place], [address] Magnesiumon 07-01-2024 Magnesium [Mass/Vol] 2.0 mg/dL Normal 1.6-2.6 [facility] Comment on above: Performed By: #### L 500.4050, L501.2300, L100.0100, L501.9520, L501.5200 ####[facility] [address] [place], [address] No Panel InformationOrdered By: Nicole Trujillo on 07-01-2024 24 U/L 15-37 [facility] Phosphoruson 07-01-2024 Phosphate [Mass/Vol] 2.4 mg/dL Low 2.5-4.9 [facility] Comment on above: Performed By: #### L 500.4050, L501.2300, L100.0100, L501.9520, L501.5200 ####[facility] [address] [place], [address] Serum globulin measurementOr dered By: Nicole Trujillo on 07-01-2024 Serum globulin measurement 3.5 g/dL 2.2-4.2 [facility] TSH QnOrdered By: Nicole Gardiner on 07-01-2024 Serum or plasma thyroid stimulating hormone (TSH) measurement (units/volume) 1.730 uIU/mL 0.358-3.74 0 [facility] Thyroid Stim Hormone (TSH)on 07-01-2024 TSH 1.730 uIU/mL Normal 0.358-3.74 0 [facility] Comment on above: Performed By: #### L 500.4050, L501.2300, L100.0100, L501.9520, L501.5200 ####[facility] [address] [place], [address] Total proteinOrdered By: Jenae stephen Ronnie on 07-01-2024 Total protein 6.2 g/dL Low 6.4-8.2 [facility] Bedside Glucoseon 06-30-2024 FINGERSTICK GLU 149 mg/dL High 74-106 [facility] Comment on above: Result Comment: TALIA GEMENT OF PATIENT CARE PER NURSING PROTOCOL Performed By: #### L 501.080 ####[facility] [address] [place], [address] FINGERSTICK GLU 216 mg/dL High 74-106 [facility] Comment on above: Result Comment: TALIA GEMENT OF PATIENT CARE PER NURSING PROTOCOL Performed By: #### L 501.080 ####[facility] [address] [place], [address] FINGERSTICK GLU 288 mg/dL High 74-106 [facility] Comment on above: Result Comment: TALIA GEMENT OF PATIENT CARE PER NURSING PROTOCOL Performed By: #### L 501.080 ####[facility] [address] [place], [address] FINGERSTICK GLU 291 mg/dL High 74-106 [facility] Comment on above: Result Comment: TALIA GEMENT OF PATIENT CARE PER NURSING PROTOCOL Performed By: #### L 501.080 ####[facility] [address] [place], [address] CBC W/Diff, Automatedon 06-05 Absolute Lymph 1.35 X10 3/uL Normal 0.83-4.51 [facility] Comment on above: Performed By: #### L 100.0100, L500.4050, L501.5200 ####[facility] [address] [place], [address] Absolute Neut 3.3 X10 3/uL Normal 2.0-7.7 [facility] Comment on above: Performed By: #### L 100.0100, L500.4050, L501.5200 ####[facility] [address] [place], [address] Basophils/100 WBC (Bld) 0.2 % Normal 0-1 [facility] Comment on above: Performed By: #### L 100.0100, L500.4050, L501.5200 ####[facility] [address] [place], [address] Eosinophils/100 WBC (Bld) 0.2 % Normal 0-5 [facility] Comment on above: Performed By: #### L 100.0100, L500.4050, L501.5200 ####[facility] [address] [place], [address] Erythrocyte distribution width (RBC) [Ratio] 14.5 % Normal 11.6-14.6 [facility] Comment on above: Performed By: #### L 100.0100, L500.4050, L501.5200 ####[facility] [address] [place], [address] Hematocrit (Bld) [Volume fraction] 36.7 % Low 37-47 [facility] Comment on above: Performed By: #### L 100.0100, L500.4050, L501.5200 ####[facility] [address] [place], [address] Hemoglobin (Bld) [Mass/Vol] 12.0 g/dL Normal 12.0-15.0 [facility] Comment on above: Performed By: #### L 100.0100, L500.4050, L501.5200 ####[facility] [address] [place], [address] IG% 0.400 Normal 0.0-0.9 [facility] Comment on above: Result Comment: IG% - Immature Granulocytes (promyelocytes, myelocytes andmetamyelocytes) > 1% indicates that a LEFT SHIFT is Present. Performed By: #### L 100.0100, L500.4050, L501.5200 ####[facility] [address] [place], [address] Lymphocytes/100 WBC (Bld) 26.4 % Normal 19-41 [facility] Comment on above: Performed By: #### L 100.0100, L500.4050, L501.5200 ####[facility] [address] [place], [address] MCH (RBC) [Entitic mass] 27.0 pg Normal 27.0-32.0 [facility] Comment on above: Performed By: #### L 100.0100, L500.4050, L501.5200 ####[facility] [address] [place], [address] MCHC (RBC) [Mass/Vol] 32.7 g/dL Normal 32-36 [facility] Comment on above: Performed By: #### L 100.0100, L500.4050, L501.5200 ####[facility] [address] [place], [address] MCV (RBC) [Entitic vol] 82.5 fL Normal 81-99 [facility] Comment on above: Performed By: #### L 100.0100, L500.4050, L501.5200 ####[facility] [address] [place], [address] Monocytes/100 WBC (Bld) 7.8 % Normal 0-10 [facility] Comment on above: Performed By: #### L 100.0100, L500.4050, L501.5200 ####[facility] [address] [place], [address] Neutrophils/100 WBC (Bld) 65.0 % Normal 47-70 [facility] Comment on above: Performed By: #### L 100.0100, L500.4050, L501.5200 ####[facility] [address] [place], [address] Nucleated RBC (Bld) [#/Vol] 0 10*3/uL Normal 0-5 [facility] Comment on above: Performed By: #### L 100.0100, L500.4050, L501.5200 ####[facility] [address] [place], [address] Platelet mean volume (Bld) [Entitic vol] 9.6 fL Normal 6.2-12.0 [facility] Comment on above: Performed By: #### L 100.0100, L500.4050, L501.5200 ####[facility] [address] [place], [address] Platelets (Bld) [#/Vol] 215 10*3/uL Normal 150-450 [facility] Comment on above: Performed By: #### L 100.0100, L500.4050, L501.5200 ####[facility] [address] [place], [address] RBC (Bld) [#/Vol] 4.45 10*6/uL Normal 4.2-5.4 [facility] Comment on above: Performed By: #### L 100.0100, L500.4050, L501.5200 ####[facility] [address] [place], [address] RDW SD 43.2 fl Normal 35.1-43.9 [facility] Comment on above: Performed By: #### L 100.0100, L500.4050, L501.5200 ####[facility] [address] [place], [address] WBC (Bld) [#/Vol] 5.1 10*3/uL Normal 4.4-11.0 [facility] Comment on above: Performed By: #### L 100.0100, L500.4050, L501.5200 ####[facility] [address] [place], [address] Comprehensive Metabolic [facility] ilon 06-30-2024 Albumin [Mass/Vol] 2.9 g/dL Low 3.2-5.0 [facility] Comment on above: Performed By: #### L 100.0100, L500.4050, L501.5200 ####[facility] [address] [place], [address] Albumin/Globulin [Mass ratio] 0.7 {ratio} Low 0.9-2.4 [facility] Comment on above: Performed By: #### L 100.0100, L500.4050, L501.5200 ####[facility] [address] [place], [address] ALK P 96 U/L Normal 45-117 [facility] Comment on above: Performed By: #### L 100.0100, L500.4050, L501.5200 ####[facility] [address] [place], [address] ALT [Catalytic activity/Vol] 25 U/L Normal 13-56 [facility] Comment on above: Performed By: #### L 100.0100, L500.4050, L501.5200 ####[facility] [address] [place], [address] AST [Catalytic activity/Vol] 32 U/L Normal 15-37 [facility] Comment on above: Performed By: #### L 100.0100, L500.4050, L501.5200 ####[facility] [address] [place], [address] Bilirubin [Mass/Vol] 0.90 mg/dL Normal 0.20-1.00 [facility] Comment on above: Result Comment: For patients on eltrombopag therapy, use of Dimension [place] TBIL is not recommended. Performed By: #### L 100.0100, L500.4050, L501.5200 ####[facility] [address] [place], [address] BUN/CRE 27.0 RATIO High 10-20 [facility] Comment on above: Performed By: #### L 100.0100, L500.4050, L501.5200 ####[facility] [address] [place], [address] CA,Total 9.0 mg/dL Normal 8.5-10.1 [facility] Comment on above: Performed By: #### L 100.0100, L500.4050, L501.5200 ####[facility] [address] [place], [address] Chloride [Moles/Vol] 102 mmol/L Normal 98-107 [facility] Comment on above: Performed By: #### L 100.0100, L500.4050, L501.5200 ####[facility] [address] [place], [address] CO2 [Moles/Vol] 27.0 mmol/L Normal 21.0-32.0 [facility] Comment on above: Performed By: #### L 100.0100, L500.4050, L501.5200 ####[facility] [address] [place], [address] Creatinine [Mass/Vol] 0.81 mg/dL Normal 0.55-1.02 [facility] Comment on above: Result Comment: The validity of the calculated GFR GFRAA in patients over70 years has not been determined. Clinical correlation isessential. Performed By: #### L 100.0100, L500.4050, L501.5200 ####[facility] [address] [place], [address] ECRCL 88.19 ml/min Normal [facility] Comment on above: Performed By: #### L 100.0100, L500.4050, L501.5200 ####[facility] [address] [place], [address] EST GFR - AA 95 mL/min Normal >60 [facility] Comment on above: Result Comment: Afri can Citizen [place] GFR Calc Performed By: #### L 100.0100, L500.4050, L501.5200 ####[facility] [address] [place], [address] GAP 5 Normal 5-15 [facility] Comment on above: Performed By: #### L 100.0100, L500.4050, L501.5200 ####[facility] [address] [place], [address] GFR/1.73 sq M.predicted among non-blacks MDRD (S/P/Bld) [Vol rate/Area] 78 mL/min/{1.73_m2} Normal >60 [facility] Comment on above: Result Comment: Non- GFR Calc Performed By: #### L 100.0100, L500.4050, L501.5200 ####[facility] [address] [place], [address] Globulin (S) [Mass/Vol] 4.3 g/dL High 2.2-4.2 [facility] Comment on above: Performed By: #### L 100.0100, L500.4050, L501.5200 ####[facility] [address] [place], [address] Glucose [Mass/Vol] 291 mg/dL High 74-106 [facility] Comment on above: Result Comment: Gluc ose result greater than or equal to 200 mg/dLsuggests DIABETES MELLITUS per A.D.A. criteria. Performed By: #### L 100.0100, L500.4050, L501.5200 ####[facility] [address] [place], [address] Potassium [Moles/Vol] 3.2 mmol/L Low 3.5-5.1 [facility] Comment on above: Performed By: #### L 100.0100, L500.4050, L501.5200 ####[facility] [address] [place], [address] Sodium [Moles/Vol] 134 mmol/L Low 136-145 [facility] Comment on above: Performed By: #### L 100.0100, L500.4050, L501.5200 ####[facility] [address] [place], [address] T PROT 7.2 g/dL Normal 6.4-8.2 [facility] Comment on above: Performed By: #### L 100.0100, L500.4050, L501.5200 ####[facility] [address] [place], [address] Urea nitrogen [Mass/Vol] 22 mg/dL High 7-18 [facility] Comment on above: Performed By: #### L 100.0100, L500.4050, L501.5200 ####[facility] [address] [place], [address] Magnesiumon 06-30-2024 Magnesium [Mass/Vol] 2.1 mg/dL Normal 1.6-2.6 [facility] Comment on above: Performed By: #### L 100.0100, L500.4050, L501.5200 ####[facility] [address] [place], [address] 12 Lead EKGon 06-29-2024 12 Lead EKG Normal [facility] Abdomen/Pelvis W IV Cont ONL Yon 06-29-2024 Abdomen/Pelvis W IV Cont ONLY Normal [facility] Bacteria LM.HPF (Urine sed) [#/Area]Ordered By: Davis Ibarra on 06-29-2024 Urine sediment bacteria count by microscopy (number/high power field) 3+ /hpf None Seen [facility] Bedside Glucoseon 06-29-2024 FINGERSTICK GLU 278 mg/dL High 74-106 [facility] Comment on above: Result Comment: TALIA CHAMBERS OF PATIENT CARE PER NURSING PROTOCOL Performed By: #### L 501.080 ####[facility] [address] [place], [address] Beta HCG ( test) Ql Ordered By: Davis Ibarra on 06-29-2024 Serum beta-hCG test, qualitative Negative [facility] CBC W/Diff, Automatedon 06-05 Absolute Lymph 1.05 X10 3/uL Normal 0.83-4.51 [facility] Comment on above: Performed By: #### L 700.6800, L501.2450, L100.0100, L501.5425, L500.4050 ####[facility] [address] [place], [address] Absolute Neut 4.8 X10 3/uL Normal 2.0-7.7 [facility] Comment on above: Performed By: #### L 700.6800, L501.2450, L100.0100, L501.5425, L500.4050 ####[facility] [address] [place], [address] Basophils/100 WBC (Bld) 0.2 % Normal 0-1 [facility] Comment on above: Performed By: #### L 700.6800, L501.2450, L100.0100, L501.5425, L500.4050 ####[facility] [address] [place], [address] Eosinophils/100 WBC (Bld) 0.5 % Normal 0-5 [facility] Comment on above: Performed By: #### L 700.6800, L501.2450, L100.0100, L501.5425, L500.4050 ####[facility] [address] [place], [address] Erythrocyte distribution width (RBC) [Ratio] 14.3 % Normal 11.6-14.6 [facility] Comment on above: Performed By: #### L 700.6800, L501.2450, L100.0100, L501.5425, L500.4050 ####[facility] [address] [place], [address] Hematocrit (Bld) [Volume fraction] 36.4 % Low 37-47 [facility] Comment on above: Performed By: #### L 700.6800, L501.2450, L100.0100, L501.5425, L500.4050 ####[facility] [address] [place], [address] Hemoglobin (Bld) [Mass/Vol] 12.8 g/dL Normal 12.0-15.0 [facility] Comment on above: Performed By: #### L 700.6800, L501.2450, L100.0100, L501.5425, L500.4050 ####[facility] [address] [place], [address] IG% 0.300 Normal 0.0-0.9 [facility] Comment on above: Result Comment: IG% - Immature Granulocytes (promyelocytes, myelocytes andmetamyelocytes) > 1% indicates that a LEFT SHIFT is Present. Performed By: #### L 700.6800, L501.2450, L100.0100, L501.5425, L500.4050 ####[facility] [address] [place], [address] Lymphocytes/100 WBC (Bld) 16.6 % Low 19-41 [facility] Comment on above: Performed By: #### L 700.6800, L501.2450, L100.0100, L501.5425, L500.4050 ####[facility] [address] [place], [address] MCH (RBC) [Entitic mass] 28.3 pg Normal 27.0-32.0 [facility] Comment on above: Performed By: #### L 700.6800, L501.2450, L100.0100, L501.5425, L500.4050 ####[facility] [address] [place], [address] MCHC (RBC) [Mass/Vol] 35.2 g/dL Normal 32-36 [facility] Comment on above: Performed By: #### L 700.6800, L501.2450, L100.0100, L501.5425, L500.4050 ####[facility] [address] [place], [address] MCV (RBC) [Entitic vol] 80.5 fL Low 81-99 [facility] Comment on above: Performed By: #### L 700.6800, L501.2450, L100.0100, L501.5425, L500.4050 ####[facility] [address] [place], [address] Monocytes/100 WBC (Bld) 6.2 % Normal 0-10 [facility] Comment on above: Performed By: #### L 700.6800, L501.2450, L100.0100, L501.5425, L500.4050 ####[facility] [address] [place], [address] Neutrophils/100 WBC (Bld) 76.2 % High 47-70 [facility] Comment on above: Performed By: #### L 700.6800, L501.2450, L100.0100, L501.5425, L500.4050 ####[facility] [address] [place], [address] Nucleated RBC (Bld) [#/Vol] 0 10*3/uL Normal 0-5 [facility] Comment on above: Performed By: #### L 700.6800, L501.2450, L100.0100, L501.5425, L500.4050 ####[facility] [address] [place], [address] Platelet mean volume (Bld) [Entitic vol] 9.4 fL Normal 6.2-12.0 [facility] Comment on above: Performed By: #### L 700.6800, L501.2450, L100.0100, L501.5425, L500.4050 ####[facility] [address] [place], [address] Platelets (Bld) [#/Vol] 207 10*3/uL Normal 150-450 [facility] Comment on above: Performed By: #### L 700.6800, L501.2450, L100.0100, L501.5425, L500.4050 ####[facility] [address] [place], [address] RBC (Bld) [#/Vol] 4.52 10*6/uL Normal 4.2-5.4 [facility] Comment on above: Performed By: #### L 700.6800, L501.2450, L100.0100, L501.5425, L500.4050 ####[facility] [address] [place], [address] RDW SD 42.1 fl Normal 35.1-43.9 [facility] Comment on above: Performed By: #### L 700.6800, L501.2450, L100.0100, L501.5425, L500.4050 ####[facility] [address] [place], [address] WBC (Bld) [#/Vol] 6.3 10*3/uL Normal 4.4-11.0 [facility] Comment on above: Performed By: #### L 700.6800, L501.2450, L100.0100, L501.5425, L500.4050 ####[facility] [address] [place], [address] Chest 1 View (Portable)on Chest 1 View (Portable) Normal [facility] Clarity (U)Ordered By: Madhav Ibarra on 06-29-2024 Urine clarity Cloudy Clear [facility] Color (U)Ordered By: Davis Ibarra on 06-29-2024 Urine color determination Yellow Yellow [facility] Comprehensive Metabolic Prof ilon 06-29-2024 Albumin [Mass/Vol] 3.3 g/dL Normal 3.2-5.0 [facility] Comment on above: Order Comment: 1Y Performed By: #### L 700.6800, L501.2450, L100.0100, L501.5425, L500.4050 ####[facility] [address] [place], [address] Albumin/Globulin [Mass ratio] 0.8 {ratio} Low 0.9-2.4 [facility] Comment on above: Order Comment: 1Y Performed By: #### L 700.6800, L501.2450, L100.0100, L501.5425, L500.4050 ####[facility] [address] [place], [address] ALK P 113 U/L Normal 45-117 [facility] Comment on above: Order Comment: 1Y Performed By: #### L 700.6800, L501.2450, L100.0100, L501.5425, L500.4050 ####[facility] [address] [place], [address] ALT [Catalytic activity/Vol] 26 U/L Normal 13-56 [facility] Comment on above: Order Comment: 1Y Performed By: #### L 700.6800, L501.2450, L100.0100, L501.5425, L500.4050 ####[facility] [address] [place], [address] AST [Catalytic activity/Vol] 34 U/L Normal 15-37 [facility] Comment on above: Order Comment: 1Y Performed By: #### L 700.6800, L501.2450, L100.0100, L501.5425, L500.4050 ####[facility] [address] [place], [address] Bilirubin [Mass/Vol] 0.80 mg/dL Normal 0.20-1.00 [facility] Comment on above: Order Comment: 1Y Result Comment: For patients on eltrombopag therapy, use of Dimension [place] TBIL is not recommended. Performed By: #### L 700.6800, L501.2450, L100.0100, L501.5425, L500.4050 ####[facility] [address] [place], [address] BUN/CRE 27.6 RATIO High 10-20 [facility] Comment on above: Order Comment: 1Y Performed By: #### L 700.6800, L501.2450, L100.0100, L501.5425, L500.4050 ####[facility] [address] [place], [address] CA,Total 9.6 mg/dL Normal 8.5-10.1 [facility] Comment on above: Order Comment: 1Y Performed By: #### L 700.6800, L501.2450, L100.0100, L501.5425, L500.4050 ####[facility] [address] [place], [address] Chloride [Moles/Vol] 98 mmol/L Normal 98-107 [facility] Comment on above: Order Comment: 1Y Performed By: #### L 700.6800, L501.2450, L100.0100, L501.5425, L500.4050 ####[facility] [address] [place], [address] CO2 [Moles/Vol] 25.0 mmol/L Normal 21.0-32.0 [facility] Comment on above: Order Comment: 1Y Performed By: #### L 700.6800, L501.2450, L100.0100, L501.5425, L500.4050 ####[facility] [address] [place], [address] Creatinine [Mass/Vol] 0.91 mg/dL Normal 0.55-1.02 [facility] Comment on above: Order Comment: 1Y Result Comment: The validity of the calculated GFR GFRAA in patients over70 years has not been determined. Clinical correlation isessential. Performed By: #### L 700.6800, L501.2450, L100.0100, L501.5425, L500.4050 ####[facility] [address] [place], [address] ECRCL 79.48 ml/min Normal [facility] Comment on above: Order Comment: 1Y Performed By: #### L 700.6800, L501.2450, L100.0100, L501.5425, L500.4050 ####[facility] [address] [place], [address] EST GFR - AA 84 mL/min Normal >60 [facility] Comment on above: Order Comment: 1Y Result Comment: Afri can Citizen [place] GFR Calc Performed By: #### L 700.6800, L501.2450, L100.0100, L501.5425, L500.4050 ####[facility] [address] [place], [address] GAP 9 Normal 5-15 [facility] Comment on above: Order Comment: 1Y Performed By: #### L 700.6800, L501.2450, L100.0100, L501.5425, L500.4050 ####[facility] [address] [place], [address] GFR/1.73 sq M.predicted among non-blacks MDRD (S/P/Bld) [Vol rate/Area] 69 mL/min/{1.73_m2} Normal >60 [facility] Comment on above: Order Comment: 1Y Result Comment: Non- GFR Calc Performed By: #### L 700.6800, L501.2450, L100.0100, L501.5425, L500.4050 ####[facility] [address] [place], [address] Globulin (S) [Mass/Vol] 4.4 g/dL High 2.2-4.2 [place] Comment on above: Order Comment: 1Y Performed By: #### L 700.6800, L501.2450, L100.0100, L501.5425, L500.4050 ####[facility] [address] [place], [address] Glucose [Mass/Vol] 363 mg/dL High 74-106 [facility] Comment on above: Order Comment: 1Y Result Comment: Gluc ose result greater than or equal to 200 mg/dLsuggests DIABETES MELLITUS per A.D.A. criteria. Performed By: #### L 700.6800, L501.2450, L100.0100, L501.5425, L500.4050 ####[facility] [address] [place], [address] Potassium [Moles/Vol] 3.6 mmol/L Normal 3.5-5.1 [facility] Comment on above: Order Comment: 1Y Performed By: #### L 700.6800, L501.2450, L100.0100, L501.5425, L500.4050 ####[facility] [address] [place], [address] Sodium [Moles/Vol] 131 mmol/L Low 136-145 [facility] Comment on above: Order Comment: 1Y Performed By: #### L 700.6800, L501.2450, L100.0100, L501.5425, L500.4050 ####[facility] [address] [place], [address] T PROT 7.7 g/dL Normal 6.4-8.2 [facility] Comment on above: Order Comment: 1Y Performed By: #### L 700.6800, L501.2450, L100.0100, L501.5425, L500.4050 ####[facility] [address] [place], [address] Urea nitrogen [Mass/Vol] 25 mg/dL High 7-18 [facility] Comment on above: Order Comment: 1Y Performed By: #### L 700.6800, L501.2450, L100.0100, L501.5425, L500.4050 ####[facility] [address] [place], [address] Emergency Department Summary on 06-29-2024 Emergency Department Summary Normal [facility] Glucose Ql (U)Ordered By: Matt Ibarra on 06-29-2024 Urine glucose detection 1000 mg/dl High Normal [facility] H AND P Exam - Hospitaliston 06-29-2024 H&P Exam - Hospitalist Normal Wo [facility] L501.5425on 06-29-2024 TROPONIN-I HS 28 pg/mL Normal 3.0-54.0 [facility] Comment on above: Order Comment: 1Y Result Comment: Plea Note: New Test Units and Gender Specific Reference Ranges. For more information see Policy Stat Procedure [place] High Sensitivity Troponin (TNIH) and attachments. Performed By: #### L 700.6800, L501.2450, L100.0100, L501.5425, L500.4050 ####[facility] [address] [place], [place], [id number] Leukocyte esterase Test stri p Ql (U)Ordered By: Davis Ibarra on 06-29-2024 Urine leukocyte esterase detection by dipstick 500 /ul High Negative [facility] Lipaseon 06-29-2024 Lipase [Catalytic activity/Vol] 23 U/L Normal 13-75 [facility] Comment on above: Order Comment: 1Y Result Comment: Gege edgar note:LIPASE revised reference range effective 22.New Lipase methodology. Expected to produce lower valuesthan the previous assay method.NEW Reference Range: 13 - 75 U/L Performed By: #### L 700.6800, L501.2450, L100.0100, L501.5425, L500.4050 ####[facility] [address] [place], [place], [address] Lipase measurementOrdered By : Davis Ibarra on 06-29-2024 Lipase measurement 23 U/L 13-75 [facility] Microscopic analysis of urin e for red blood cells (RBC)Ordered By: Davis Ibarra on 06-29-2024 Microscopic analysis of urine for red blood cells (RBC) 0-5 SEEN /hpf 5-10 [facility] Mucus LM Ql (Urine sed)Order ed By: Davis Ibarra on 06-29-2024 Mucus detection in urine sediment by light microscopy 1+ /hpf [facility] Nitrite Test strip Ql (U)Ord ered By: Davis Ibarra on 06-29-2024 Urine nitrite test by dipstick Positive High Negative [facility] ,Serum,hCG Quali.on 06-29-2024 HCG, SERUM QUAL Negative Normal [facility] Comment on above: Performed By: #### L 700.6800, L501.2450, L100.0100, L501.5425, L500.4050 ####[facility] [address] [place], [place], [id number] Protein Test strip Ql (U)Ord ered By: Davis Ibarra on 06-29-2024 Urine protein assay by test strip, semi-quantitative 100 mg/dl High Negative [facility] Specific gravity (U) [Rel de nsity]Ordered By: Davis Ibarra on 06-29-2024 Urine specific gravity measurement 1.015 1.002-1.03 0 [facility] Tropinin I.cardiac panel Hig h sensitivity methodOrdered By: Davis Ibarra on 06-29-2024 Serum or plasma cardiac troponin I panel by high sensitivity method 28 pg/mL 3.0-54.0 [facility] Urinalysis, Completeon 06-29 BACTERIA 3+ /hpf Normal None Seen [facility] Comment on above: Order Comment: CLEAN CATCH Performed By: #### L 400.0001 ####[facility] [address] [place], [address] EPI,SQUAMOUS 0-5 SEEN Normal 5-10 [facility] Comment on above: Order Comment: CLEAN CATCH Performed By: #### L 400.0001 ####[facility] [address] [place], [address] Mucus Ql (Urine sed) 1+ /hpf Normal [facility] Comment on above: Order Comment: CLEAN CATCH Performed By: #### L 400.0001 ####[facility] [address] [place], [address] RBC 0-5 SEEN Normal 0-5 [facility] Comment on above: Order Comment: CLEAN CATCH Performed By: #### L 400.0001 ####[facility] [address] [place], [address] WBC 10-25 SEEN Normal 0-5 [facility] Comment on above: Order Comment: CLEAN CATCH Performed By: #### L 400.0001 ####[facility] [address] [place], [address] Urine blood detectionOrdered By: Davis Ibarra on 06-29-2024 Urine blood detection 50 /ul High Negative [facility] Urine cultureOrdered By: [place] on 06-29-2024 Urine culture ESBL Escherichia coli Abnormal [facility] Urine total bilirubin detect ion by test stripOrdered By: Davis Ibarra on 06-29-2024 Urine total bilirubin detection by test strip Negative Negative [facility] Urobilinogen Ql (U)Ordered B y: Davis Ibarra on 06-29-2024 Urine urobilinogen measurement Normal mg/dl Normal [facility] White blood cell countOrdere d By: Davis Ibarra on 06-29-2024 White blood cell count 10-25 SEEN /hpf 0-5 [facility] pH (U)Ordered By: Adrien on 06-29-2024 Urine pH 6.0 5.0 - 8.0 [facility] .Auto Diffon 05-23-2024 Basophil, Absolute 0.1 10 3/mcL Normal 0.0-0.2 [facility] Comment on above: Performed By: #### C BC, MORPH, CMP, TROPHS, ADIFF, GFR, LIP, MDW, ANEU #### [address] [address] Basophils/100 WBC (Bld) 0.8 % Normal 0.0-2.5 [facility] Comment on above: Performed By: #### C BC, MORPH, CMP, TROPHS, ADIFF, GFR, LIP, MDW, ANEU #### [address] [address] Eosinophil, Absolute 0.2 10 3/mcL Normal 0.0-0.7 [facility] Comment on above: Performed By: #### C BC, MORPH, CMP, TROPHS, ADIFF, GFR, LIP, MDW, ANEU #### [address] [address] Eosinophils/100 WBC (Bld) 1.1 % Normal 0.0-7.0 [facility] Comment on above: Performed By: #### C BC, MORPH, CMP, TROPHS, ADIFF, GFR, LIP, MDW, ANEU #### [address] [place] [address] Lymphocyte, Absolute 1.7 10 3/mcL Normal 0.9-4.3 [facility] Comment on above: Performed By: #### C BC, MORPH, CMP, TROPHS, ADIFF, GFR, LIP, MDW, ANEU #### [address] [address] Lymphocytes/100 WBC (Bld) 11.5 % Low 20.0-40.0 [facility] Comment on above: Performed By: #### C BC, MORPH, CMP, TROPHS, ADIFF, GFR, LIP, MDW, ANEU #### [address] [address] Monocyte, Absolute 0.9 10 3/mcL Normal 0.1-1.4 [facility] Comment on above: Performed By: #### C BC, MORPH, CMP, TROPHS, ADIFF, GFR, LIP, MDW, ANEU #### [address] [address] Monocytes/100 WBC (Bld) 6.2 % Normal 2.0-13.0 [facility] Comment on above: Performed By: #### C BC, MORPH, CMP, TROPHS, ADIFF, GFR, LIP, MDW, ANEU #### [address] [address] Neutrophils/100 WBC (Bld) 80.4 % High 50.0-75.0 [facility] Comment on above: Performed By: #### C BC, MORPH, CMP, TROPHS, ADIFF, GFR, LIP, MDW, ANEU #### [address] [address] .GFRon 05-23-2024 GFR Non- 26 ml/min/1.73sqm Normal [facility] Comment on above: Result Comment: GFR [...] TROPHS, ADIFF, GFR, LIP, MDW, ANEU #### [address] [address] GFR 31 ml/min/1.73sqm Normal [facility] Comment on above: Result Comment: GFR [...] TROPHS, ADIFF, GFR, LIP, MDW, ANEU #### [address] [address] .MDWon 05-23-2024 Monocyte Distribution Width 18.96 Normal 0.00-20.00 [facility] Comment on above: Result Comment: For ED adult patients suspected of sepsis, MDW<=20.0 does not rule out sepsis or risk of sepsis Performed By: #### C BC, MORPH, CMP, TROPHS, ADIFF, GFR, LIP, MDW, ANEU #### [address] [address] .Morphon 05-23-2024 Platelet Estimate Normal Normal [facility] Comment on above: Performed By: #### C BC, MORPH, CMP, TROPHS, ADIFF, GFR, LIP, MDW, ANEU #### [place] [address] .NEUABSon 05-23-2024 Neutrophil, Absolute 11.7 10 3/mcL High 2.3-8.1 [facility] Comment on above: Performed By: #### C BC, MORPH, CMP, TROPHS, ADIFF, GFR, LIP, MDW, ANEU #### [place] [address] CBCon 05-23-2024 Erythrocyte distribution width (RBC) [Ratio] 15.3 % Normal 11.5-15.5 [facility] Comment on above: Performed By: #### C BC, MORPH, CMP, TROPHS, ADIFF, GFR, LIP, MDW, ANEU #### [place] [address] Hematocrit (Bld) [Volume fraction] 35.1 % Normal 34.0-46.0 [facility] Comment on above: Performed By: #### C BC, MORPH, CMP, TROPHS, ADIFF, GFR, LIP, MDW, ANEU #### [place] [address] Hgb 11.3 G/dL Low 12.0-16.0 [facility] Comment on above: Performed By: #### C BC, MORPH, CMP, TROPHS, ADIFF, GFR, LIP, MDW, ANEU #### [place] [address] MCH (RBC) [Entitic mass] 27.2 pg Normal 27.0-33.0 [facility] Comment on above: Performed By: #### C BC, MORPH, CMP, TROPHS, ADIFF, GFR, LIP, MDW, ANEU #### [place] [address] MCHC 32.3 G/dL Normal 32.0-36.0 [facility] Comment on above: Performed By: #### C BC, MORPH, CMP, TROPHS, ADIFF, GFR, LIP, MDW, ANEU #### [address] [address] MCV (RBC) [Entitic vol] 84.2 fL Normal 80.0-99.0 [facility] Comment on above: Performed By: #### C BC, MORPH, CMP, TROPHS, ADIFF, GFR, LIP, MDW, ANEU #### [address] [address] Platelet 229 10 3/mcL Normal 150-450 [facility] Comment on above: Performed By: #### C BC, MORPH, CMP, TROPHS, ADIFF, GFR, LIP, MDW, ANEU #### [place] [address] Platelet mean volume (Bld) [Entitic vol] 7.3 fL Normal 6.6-10.5 [facility] Comment on above: Performed By: #### C BC, MORPH, CMP, TROPHS, ADIFF, GFR, LIP, MDW, ANEU #### [place] [address] RBC 4.17 10 6/mcL Normal 4.10-5.30 [facility] Comment on above: Performed By: #### C BC, MORPH, CMP, TROPHS, ADIFF, GFR, LIP, MDW, ANEU #### [address] [address] WBC 14.5 10 3/mcL High 4.5-10.8 [facility] Comment on above: Performed By: #### C BC, MORPH, CMP, TROPHS, ADIFF, GFR, LIP, MDW, ANEU #### [address] [address] CMPon 05-23-2024 Albumin Level 2.7 G/dL Low 3.5-5.0 [facility] Comment on above: Order Comment: 05/23 20:12:51 EST hemolyzed. EH Performed By: #### C BC, MORPH, CMP, TROPHS, ADIFF, GFR, LIP, MDW, ANEU #### [address] [address] Albumin/Globulin [Mass ratio] 0.7 {ratio} Low 1.1-2.5 [facility] Comment on above: Order Comment: 05/23 20:12:51 EST hemolyzed. EH Performed By: #### C BC, MORPH, CMP, TROPHS, ADIFF, GFR, LIP, MDW, ANEU #### [address] [address] ALP [Catalytic activity/Vol] 128 U/L Normal 40-135 [facility] Comment on above: Order Comment: 05/23 20:12:51 EST hemolyzed. EH Performed By: #### C BC, MORPH, CMP, TROPHS, ADIFF, GFR, LIP, MDW, ANEU #### [address] [address] ALT [Catalytic activity/Vol] 22 U/L Normal 14-59 [facility] Comment on above: Order Comment: 05/23 20:12:51 EST hemolyzed. EH Performed By: #### C BC, MORPH, CMP, TROPHS, ADIFF, GFR, LIP, MDW, ANEU #### [address] [address] AST [Catalytic activity/Vol] 21 U/L Normal 10-40 [facility] Comment on above: Order Comment: 05/23 20:12:51 EST hemolyzed. EH Performed By: #### C BC, MORPH, CMP, TROPHS, ADIFF, GFR, LIP, MDW, ANEU #### [address] [address] Bili Total 0.9 mg/dL Normal 0.2-1.0 [facility] Comment on above: Order Comment: 05/23 20:12:51 EST hemolyzed. EH Result Comment: Use of this assay is not recommended for patients undergoing treatment with eltrombopag due to the potential for falsely elevated results. Performed By: #### C BC, MORPH, CMP, TROPHS, ADIFF, GFR, LIP, MDW, ANEU #### [address] [address] BUN/Creatinine Ratio 20 ratio Normal 7-27 [facility] Comment on above: Order Comment: 05/23 20:12:51 EST hemolyzed. EH Performed By: #### C BC, MORPH, CMP, TROPHS, ADIFF, GFR, LIP, MDW, ANEU #### [address] [address] Calcium [Mass/Vol] 8.7 mg/dL Normal 8.4-10.2 [facility] Comment on above: Order Comment: 05/23 20:12:51 EST hemolyzed. EH Performed By: #### C BC, MORPH, CMP, TROPHS, ADIFF, GFR, LIP, MDW, ANEU #### [address] [address] Chloride [Moles/Vol] 102 mmol/L Normal 98-107 [facility] Comment on above: Order Comment: 05/23 20:12:51 EST hemolyzed. EH Performed By: #### C BC, MORPH, CMP, TROPHS, ADIFF, GFR, LIP, MDW, ANEU #### [address] [address] CO2 [Moles/Vol] 24 mmol/L Normal 22-29 [facility] Comment on above: Order Comment: 05/23 20:12:51 EST hemolyzed. EH Performed By: #### C BC, MORPH, CMP, TROPHS, ADIFF, GFR, LIP, MDW, ANEU #### [address] [address] Creatinine [Mass/Vol] 2.02 mg/dL High 0.55-1.02 [facility] Comment on above: Order Comment: 05/23 20:12:51 EST hemolyzed. EH Result Comment: Test ing performed on Siemens Dimension EXL analyzer using a modified kinetic Breanne technique. Performed By: #### C BC, MORPH, CMP, TROPHS, ADIFF, GFR, LIP, MDW, ANEU #### [address] [address] Electrolyte Balance 8.0 mEq/L Normal 4.0-15.0 [facility] Comment on above: Order Comment: 05/23 20:12:51 EST hemolyzed. EH Performed By: #### C BC, MORPH, CMP, TROPHS, ADIFF, GFR, LIP, MDW, ANEU #### [address] [address] Globulin 4.0 G/dL Normal [facility] Comment on above: Order Comment: 05/23 20:12:51 EST hemolyzed. EH Performed By: #### C BC, MORPH, CMP, TROPHS, ADIFF, GFR, LIP, MDW, ANEU #### [address] [address] Glucose [Mass/Vol] 181 mg/dL High 70-105 [facility] Comment on above: Order Comment: 05/23 20:12:51 EST hemolyzed. EH Performed By: #### C BC, MORPH, CMP, TROPHS, ADIFF, GFR, LIP, MDW, ANEU #### [address] [address] Potassium [Moles/Vol] 5.2 mmol/L High 3.5-5.1 [facility] Comment on above: Order Comment: 05/23 20:12:51 EST hemolyzed. EH Performed By: #### C BC, MORPH, CMP, TROPHS, ADIFF, GFR, LIP, MDW, ANEU #### [address] [address] Sodium [Moles/Vol] 134 mmol/L Low 136-145 [facility] Comment on above: Order Comment: 05/23 20:12:51 EST hemolyzed. EH Performed By: #### C BC, MORPH, CMP, TROPHS, ADIFF, GFR, LIP, MDW, ANEU #### [address] [address] Total Protein 6.7 G/dL Normal 6.4-8.2 [facility] Comment on above: Order Comment: 05/23 20:12:51 EST hemolyzed. EH Performed By: #### C BC, MORPH, CMP, TROPHS, ADIFF, GFR, LIP, MDW, ANEU #### [id number] [place], [place] [address] Urea nitrogen [Mass/Vol] 40 mg/dL High 7-18 [facility] Comment on above: Order Comment: 05/23 20:12:51 EST hemolyzed. EH Performed By: #### C BC, MORPH, CMP, TROPHS, ADIFF, GFR, LIP, MDW, ANEU #### [place] [address] [place], [place] [address] LABORATORYOrdered By: SYSTEM SYSTEM on 05-23-2024 Albumin [...] a homogeneous sandwich chemiluminescent immunoassay based on [employer] technology. LABORATORYOrdered By: Yohana Easley on 05-23-2024 Platelets LM Ql (Bld) Normal (05/23/24 8:06 PM) Normal [facility] S LIPon 05-23-2024 Lipase Level 56 U/L Normal 16-77 [facility] Comment on above: Performed By: #### C BC, MORPH, CMP, TROPHS, ADIFF, GFR, LIP, MDW, ANEU #### [address] [address] TROPHSon 05-23-2024 High Sensitivity Troponin I 18 ng/L Normal 0-51 [facility] Comment on above: Result Comment: High Sensitive Troponin I Reference Ranges: Female: 0-51 ng/L Male: 0-76 ng/L Testing performed on Dimension EXL using a homogeneous sandwich chemiluminescent immunoassay based on Highwinds technology. Performed By: #### C BC, MORPH, CMP, TROPHS, ADIFF, GFR, LIP, MDW, ANEU #### [place] [address] [place], [place] [address] Basic Metabolic Profile (BMP )on 05-06-2024 BUN Normal 7-18 [facility] Comment on above: Result Comment: Canc elled via OM: Order cancelled - Patient discharged Performed By: #### L 100.0100, L500.2500 ####[facility] [address] [place], [address] BUN/CRE Normal 10-20 [facility] Comment on above: Result Comment: Canc elled via OM: Order cancelled - Patient discharged Performed By: #### L 100.0100, L500.2500 ####[facility] [address] [place], [address] CA,Total Normal 8.5-10.1 [facility] Comment on above: Result Comment: Canc elled via OM: Order cancelled - Patient discharged Performed By: #### L 100.0100, L500.2500 ####[facility] [address] [place], [address] CL Normal 98-107 [facility] Comment on above: Result Comment: Canc elled via OM: Order cancelled - Patient discharged Performed By: #### L 100.0100, L500.2500 ####[facility] [address] [place], [address] CO2 Normal 21.0-32.0 [facility] Comment on above: Result Comment: Canc elled via OM: Order cancelled - Patient discharged Performed By: #### L 100.0100, L500.2500 ####[facility] [address] [place], [address] CREAT,SERUM Normal 0.55-1.02 [facility] Comment on above: Result Comment: Canc elled via OM: Order cancelled - Patient discharged Performed By: #### L 100.0100, L500.2500 ####[facility] [address] [place], [address] EST GFR Normal >60 [facility] Comment on above: Result Comment: Canc elled via OM: Order cancelled - Patient discharged Performed By: #### L 100.0100, L500.2500 ####[facility] [address] [place], [address] EST GFR - AA Normal >60 [facility] Comment on above: Result Comment: Canc elled via OM: Order cancelled - Patient discharged Performed By: #### L 100.0100, L500.2500 ####[facility] [address] [place], [address] GAP Normal 5-15 [facility] Comment on above: Result Comment: Canc elled via OM: Order cancelled - Patient discharged Performed By: #### L 100.0100, L500.2500 ####[facility] [address] [place], [address] GLU Normal 74-106 [facility] Comment on above: Result Comment: Canc elled via OM: Order cancelled - Patient discharged Performed By: #### L 100.0100, L500.2500 ####[facility] [address] [place], [address] Potassium Normal 3.5-5.1 [facility] Comment on above: Result Comment: Canc elled via OM: Order cancelled - Patient discharged Performed By: #### L 100.0100, L500.2500 ####[facility] [address] [place], [address] Basic Metabolic Profile (BMP) Normal 136-145 [facility] Comment on above: Result Comment: Canc elled via OM: Order cancelled - Patient discharged Performed By: #### L 100.0100, L500.2500 ####[facility] [address] [place], [address] CBC W/Diff, Automatedon 12-0 Absolute Neut Normal 2.0-7.7 [facility] Comment on above: Result Comment: Canc elled via OM: Order cancelled - Patient discharged Performed By: #### L 100.0100, L500.2500 ####[facility] [address] [place], [address] HCT Normal 37-47 [facility] Comment on above: Result Comment: Canc elled via OM: Order cancelled - Patient discharged Performed By: #### L 100.0100, L500.2500 ####[facility] [address] [place], [address] HGB Normal 12.0-15.0 [facility] Comment on above: Result Comment: Canc elled via OM: Order cancelled - Patient discharged Performed By: #### L 100.0100, L500.2500 ####[facility] [address] [place], [address] MCH Normal 27.0-32.0 [facility] Comment on above: Result Comment: Canc elled via OM: Order cancelled - Patient discharged Performed By: #### L 100.0100, L500.2500 ####[facility] [address] [place], [address] MCHC Normal 32-36 [facility] Comment on above: Result Comment: Canc elled via OM: Order cancelled - Patient discharged Performed By: #### L 100.0100, L500.2500 ####[facility] [address] [place], [address] MCV Normal 81-99 [facility] Comment on above: Result Comment: Canc elled via OM: Order cancelled - Patient discharged Performed By: #### L 100.0100, L500.2500 ####[facility] [address] [place], [address] NEUT% Normal 47-70 [facility] Comment on above: Result Comment: Canc elled via OM: Order cancelled - Patient discharged Performed By: #### L 100.0100, L500.2500 ####[facility] [address] [place], [address] PLT Normal 150-450 [facility] Comment on above: Result Comment: Canc elled via OM: Order cancelled - Patient discharged Performed By: #### L 100.0100, L500.2500 ####[facility] [address] [place], [address] RBC Normal 4.2-5.4 [facility] Comment on above: Result Comment: Canc elled via OM: Order cancelled - Patient discharged Performed By: #### L 100.0100, L500.2500 ####[facility] [address] [place], [address] RDW CV Normal 11.6-14.6 [facility] Comment on above: Result Comment: Canc elled via OM: Order cancelled - Patient discharged Performed By: #### L 100.0100, L500.2500 ####[facility] [address] [place], [address] RDW SD Normal 35.1-43.9 [facility] Comment on above: Result Comment: Canc elled via OM: Order cancelled - Patient discharged Performed By: #### L 100.0100, L500.2500 ####[facility] [address] [place], [address] WBC Normal 4.4-11.0 [facility] Comment on above: Result Comment: Canc elled via OM: Order cancelled - Patient discharged Performed By: #### L 100.0100, L500.2500 ####[facility] [address] [place], [address] Basic Metabolic Profile (BMP )on 05-05-2024 BUN Normal 7-18 [facility] Comment on above: Result Comment: Canc elled via OM: Order cancelled - Patient discharged Performed By: #### L 100.0100, L500.2500 ####[facility] [address] [place], [address] BUN/CRE Normal 10-20 [facility] Comment on above: Result Comment: Canc elled via OM: Order cancelled - Patient discharged Performed By: #### L 100.0100, L500.2500 ####[facility] [address] [place], [address] CA,Total Normal 8.5-10.1 [facility] Comment on above: Result Comment: Canc elled via OM: Order cancelled - Patient discharged Performed By: #### L 100.0100, L500.2500 ####[facility] [address] [place], [address] CL Normal 98-107 [facility] Comment on above: Result Comment: Canc elled via OM: Order cancelled - Patient discharged Performed By: #### L 100.0100, L500.2500 ####[facility] [address] [place], [address] CO2 Normal 21.0-32.0 [facility] Comment on above: Result Comment: Canc elled via OM: Order cancelled - Patient discharged Performed By: #### L 100.0100, L500.2500 ####[facility] [address] [place], [address] CREAT,SERUM Normal 0.55-1.02 [facility] Comment on above: Result Comment: Canc elled via OM: Order cancelled - Patient discharged Performed By: #### L 100.0100, L500.2500 ####[facility] [address] [place], [address] EST GFR Normal >60 [facility] Comment on above: Result Comment: Canc elled via OM: Order cancelled - Patient discharged Performed By: #### L 100.0100, L500.2500 ####[facility] [address] [place], [address] EST GFR - AA Normal >60 [facility] Comment on above: Result Comment: Canc elled via OM: Order cancelled - Patient discharged Performed By: #### L 100.0100, L500.2500 ####[facility] [address] [place], [address] GAP Normal 5-15 [facility] Comment on above: Result Comment: Canc elled via OM: Order cancelled - Patient discharged Performed By: #### L 100.0100, L500.2500 ####[facility] [address] [place], [address] GLU Normal 74-106 [facility] Comment on above: Result Comment: Canc elled via OM: Order cancelled - Patient discharged Performed By: #### L 100.0100, L500.2500 ####[facility] [address] [place], [address] Potassium Normal 3.5-5.1 [facility] Comment on above: Result Comment: Canc elled via OM: Order cancelled - Patient discharged Performed By: #### L 100.0100, L500.2500 ####[facility] [address] [place], [address] Basic Metabolic Profile (BMP) Normal 136-145 [facility] Comment on above: Result Comment: Canc elled via OM: Order cancelled - Patient discharged Performed By: #### L 100.0100, L500.2500 ####[facility] [address] [place], [address] CBC W/Diff, Automatedon 12-0 Absolute Neut Normal 2.0-7.7 [facility] Comment on above: Result Comment: Canc elled via OM: Order cancelled - Patient discharged Performed By: #### L 100.0100, L500.2500 ####[facility] [address] [place], [address] HCT Normal 37-47 [facility] Comment on above: Result Comment: Canc elled via OM: Order cancelled - Patient discharged Performed By: #### L 100.0100, L500.2500 ####[facility] [address] [place], [address] HGB Normal 12.0-15.0 [facility] Comment on above: Result Comment: Canc elled via OM: Order cancelled - Patient discharged Performed By: #### L 100.0100, L500.2500 ####[facility] [address] [place], [address] MCH Normal 27.0-32.0 [facility] Comment on above: Result Comment: Canc elled via OM: Order cancelled - Patient discharged Performed By: #### L 100.0100, L500.2500 ####[facility] [address] [place], [address] MCHC Normal 32-36 [facility] Comment on above: Result Comment: Canc elled via OM: Order cancelled - Patient discharged Performed By: #### L 100.0100, L500.2500 ####[facility] [address] [place], [address] MCV Normal 81-99 [facility] Comment on above: Result Comment: Canc elled via OM: Order cancelled - Patient discharged Performed By: #### L 100.0100, L500.2500 ####[facility] [address] [place], [address] NEUT% Normal 47-70 [facility] Comment on above: Result Comment: Canc elled via OM: Order cancelled - Patient discharged Performed By: #### L 100.0100, L500.2500 ####[facility] [address] [place], [address] PLT Normal 150-450 [facility] Comment on above: Result Comment: Canc elled via OM: Order cancelled - Patient discharged Performed By: #### L 100.0100, L500.2500 ####[facility] [address] [place], [address] RBC Normal 4.2-5.4 [facility] Comment on above: Result Comment: Canc elled via OM: Order cancelled - Patient discharged Performed By: #### L 100.0100, L500.2500 ####[facility] [address] [place], [address] RDW CV Normal 11.6-14.6 [facility] Comment on above: Result Comment: Canc elled via OM: Order cancelled - Patient discharged Performed By: #### L 100.0100, L500.2500 ####[facility] [address] [place], [address] RDW SD Normal 35.1-43.9 [facility] Comment on above: Result Comment: Canc elled via OM: Order cancelled - Patient discharged Performed By: #### L 100.0100, L500.2500 ####[facility] [address] [place], [address] WBC Normal 4.4-11.0 [facility] Comment on above: Result Comment: Canc elled via OM: Order cancelled - Patient discharged Performed By: #### L 100.0100, L500.2500 ####[facility] [address] [place], [address] Basic Metabolic Profile (BMP )on 05-04-2024 BUN Normal 7-18 [facility] Comment on above: Result Comment: Canc elled via OM: Order cancelled - Patient discharged Performed By: #### L 100.0100, L500.2500 ####[facility] [address] [place], [address] BUN/CRE Normal 10-20 [facility] Comment on above: Result Comment: Canc elled via OM: Order cancelled - Patient discharged Performed By: #### L 100.0100, L500.2500 ####[facility] [address] [place], [address] CA,Total Normal 8.5-10.1 [facility] Comment on above: Result Comment: Canc elled via OM: Order cancelled - Patient discharged Performed By: #### L 100.0100, L500.2500 ####[facility] [address] [place], [address] CL Normal 98-107 [facility] Comment on above: Result Comment: Canc elled via OM: Order cancelled - Patient discharged Performed By: #### L 100.0100, L500.2500 ####[facility] [address] [place], [address] CO2 Normal 21.0-32.0 [facility] Comment on above: Result Comment: Canc elled via OM: Order cancelled - Patient discharged Performed By: #### L 100.0100, L500.2500 ####[facility] [address] [place], [address] CREAT,SERUM Normal 0.55-1.02 [facility] Comment on above: Result Comment: Canc elled via OM: Order cancelled - Patient discharged Performed By: #### L 100.0100, L500.2500 ####[facility] [address] [place], [address] EST GFR Normal >60 [facility] Comment on above: Result Comment: Canc elled via OM: Order cancelled - Patient discharged Performed By: #### L 100.0100, L500.2500 ####[facility] [address] [place], [address] EST GFR - AA Normal >60 [facility] Comment on above: Result Comment: Canc elled via OM: Order cancelled - Patient discharged Performed By: #### L 100.0100, L500.2500 ####[facility] [address] [place], [address] GAP Normal 5-15 [facility] Comment on above: Result Comment: Canc elled via OM: Order cancelled - Patient discharged Performed By: #### L 100.0100, L500.2500 ####[facility] [address] [place], [address] GLU Normal 74-106 [facility] Comment on above: Result Comment: Canc elled via OM: Order cancelled - Patient discharged Performed By: #### L 100.0100, L500.2500 ####[facility] [address] [place], [address] Potassium Normal 3.5-5.1 [facility] Comment on above: Result Comment: Canc elled via OM: Order cancelled - Patient discharged Performed By: #### L 100.0100, L500.2500 ####[facility] [address] [place], [address] Basic Metabolic Profile (BMP) Normal 136-145 [facility] Comment on above: Result Comment: Canc elled via OM: Order cancelled - Patient discharged Performed By: #### L 100.0100, L500.2500 ####[facility] [address] [place], [address] CBC W/Diff, Automatedon 12-0 Absolute Neut Normal 2.0-7.7 [facility] Comment on above: Result Comment: Canc elled via OM: Order cancelled - Patient discharged Performed By: #### L 100.0100, L500.2500 ####[facility] [address] [place], [address] HCT Normal 37-47 [facility] Comment on above: Result Comment: Canc elled via OM: Order cancelled - Patient discharged Performed By: #### L 100.0100, L500.2500 ####[facility] [address] [place], [address] HGB Normal 12.0-15.0 [facility] Comment on above: Result Comment: Canc elled via OM: Order cancelled - Patient discharged Performed By: #### L 100.0100, L500.2500 ####[facility] [address] [place], [address] MCH Normal 27.0-32.0 [facility] Comment on above: Result Comment: Canc elled via OM: Order cancelled - Patient discharged Performed By: #### L 100.0100, L500.2500 ####[facility] [address] [place], [address] MCHC Normal 32-36 [facility] Comment on above: Result Comment: Canc elled via OM: Order cancelled - Patient discharged Performed By: #### L 100.0100, L500.2500 ####[facility] [address] [place], [address] MCV Normal 81-99 [facility] Comment on above: Result Comment: Canc elled via OM: Order cancelled - Patient discharged Performed By: #### L 100.0100, L500.2500 ####[facility] [address] [place], [address] NEUT% Normal 47-70 [facility] Comment on above: Result Comment: Canc elled via OM: Order cancelled - Patient discharged Performed By: #### L 100.0100, L500.2500 ####[facility] [address] [place], [address] PLT Normal 150-450 [facility] Comment on above: Result Comment: Canc elled via OM: Order cancelled - Patient discharged Performed By: #### L 100.0100, L500.2500 ####[facility] [address] [place], [address] RBC Normal 4.2-5.4 [facility] Comment on above: Result Comment: Canc elled via OM: Order cancelled - Patient discharged Performed By: #### L 100.0100, L500.2500 ####[facility] [address] [place], [address] RDW CV Normal 11.6-14.6 [facility] Comment on above: Result Comment: Canc elled via OM: Order cancelled - Patient discharged Performed By: #### L 100.0100, L500.2500 ####[facility] [address] [place], [address] RDW SD Normal 35.1-43.9 [facility] Comment on above: Result Comment: Canc elled via OM: Order cancelled - Patient discharged Performed By: #### L 100.0100, L500.2500 ####[facility] [address] [place], [address] WBC Normal 4.4-11.0 [facility] Comment on above: Result Comment: Canc elled via OM: Order cancelled - Patient discharged Performed By: #### L 100.0100, L500.2500 ####[facility] [address] [place], [address] Basic Metabolic Profile (BMP )on 05-03-2024 BUN Normal 7-18 [facility] Comment on above: Result Comment: Canc elled via OM: Order cancelled - Patient discharged Performed By: #### L 100.0100, L500.2500 ####[facility] [address] [place], [address] BUN/CRE Normal 10-20 [facility] Comment on above: Result Comment: Canc elled via OM: Order cancelled - Patient discharged Performed By: #### L 100.0100, L500.2500 ####[facility] [address] [place], [address] CA,Total Normal 8.5-10.1 [facility] Comment on above: Result Comment: Canc elled via OM: Order cancelled - Patient discharged Performed By: #### L 100.0100, L500.2500 ####[facility] [address] [place], [address] CL Normal 98-107 [facility] Comment on above: Result Comment: Canc elled via OM: Order cancelled - Patient discharged Performed By: #### L 100.0100, L500.2500 ####[facility] [address] [place], [address] CO2 Normal 21.0-32.0 [facility] Comment on above: Result Comment: Canc elled via OM: Order cancelled - Patient discharged Performed By: #### L 100.0100, L500.2500 ####[facility] [address] [place], [address] CREAT,SERUM Normal 0.55-1.02 [facility] Comment on above: Result Comment: Canc elled via OM: Order cancelled - Patient discharged Performed By: #### L 100.0100, L500.2500 ####[facility] [address] [place], [address] EST GFR Normal >60 [facility] Comment on above: Result Comment: Canc elled via OM: Order cancelled - Patient discharged Performed By: #### L 100.0100, L500.2500 ####[facility] [address] [place], [address] EST GFR - AA Normal >60 [facility] Comment on above: Result Comment: Canc elled via OM: Order cancelled - Patient discharged Performed By: #### L 100.0100, L500.2500 ####[facility] [address] [place], [address] GAP Normal 5-15 [facility] Comment on above: Result Comment: Canc elled via OM: Order cancelled - Patient discharged Performed By: #### L 100.0100, L500.2500 ####[facility] [address] [place] [place], [address] GLU Normal 74-106 [facility] Comment on above: Result Comment: Canc elled via OM: Order cancelled - Patient discharged Performed By: #### L 100.0100, L500.2500 ####[facility] [address] [place], [address] Potassium Normal 3.5-5.1 [facility] Comment on above: Result Comment: Canc elled via OM: Order cancelled - Patient discharged Performed By: #### L 100.0100, L500.2500 ####[facility] [address] [place], [address] Basic Metabolic Profile (BMP) Normal 136-145 [facility] Comment on above: Result Comment: Canc elled via OM: Order cancelled - Patient discharged Performed By: #### L 100.0100, L500.2500 ####[facility] [address] [place], [address] CBC W/Diff, Automatedon 11-3 0-2023 Absolute Neut Normal 2.0-7.7 [facility] Comment on above: Result Comment: Canc elled via OM: Order cancelled - Patient discharged Performed By: #### L 100.0100, L500.2500 ####[facility] [address] [place], [address] HCT Normal 37-47 [facility] Comment on above: Result Comment: Canc elled via OM: Order cancelled - Patient discharged Performed By: #### L 100.0100, L500.2500 ####[facility] [address] [place], [address] HGB Normal 12.0-15.0 [facility] Comment on above: Result Comment: Canc elled via OM: Order cancelled - Patient discharged Performed By: #### L 100.0100, L500.2500 ####[facility] [address] [place], [address] MCH Normal 27.0-32.0 [facility] Comment on above: Result Comment: Canc elled via OM: Order cancelled - Patient discharged Performed By: #### L 100.0100, L500.2500 ####[facility] [address] [place], [address] MCHC Normal 32-36 [facility] Comment on above: Result Comment: Canc elled via OM: Order cancelled - Patient discharged Performed By: #### L 100.0100, L500.2500 ####[facility] [address] [place], [address] MCV Normal 81-99 [facility] Comment on above: Result Comment: Canc elled via OM: Order cancelled - Patient discharged Performed By: #### L 100.0100, L500.2500 ####[facility] [address] [place], [address] NEUT% Normal 47-70 [facility] Comment on above: Result Comment: Canc elled via OM: Order cancelled - Patient discharged Performed By: #### L 100.0100, L500.2500 ####[facility] [address] [place], [address] PLT Normal 150-450 [facility] Comment on above: Result Comment: Canc elled via OM: Order cancelled - Patient discharged Performed By: #### L 100.0100, L500.2500 ####[facility] [address] [place], [address] RBC Normal 4.2-5.4 [facility] Comment on above: Result Comment: Canc elled via OM: Order cancelled - Patient discharged Performed By: #### L 100.0100, L500.2500 ####[facility] [address] [place], [address] RDW CV Normal 11.6-14.6 [facility] Comment on above: Result Comment: Canc elled via OM: Order cancelled - Patient discharged Performed By: #### L 100.0100, L500.2500 ####[facility] [address] [place], [address] RDW SD Normal 35.1-43.9 [facility] Comment on above: Result Comment: Canc elled via OM: Order cancelled - Patient discharged Performed By: #### L 100.0100, L500.2500 ####[facility] [address] [place], [address] WBC Normal 4.4-11.0 [facility] Comment on above: Result Comment: Canc elled via OM: Order cancelled - Patient discharged Performed By: #### L 100.0100, L500.2500 ####[facility] [address] [place], [address] Basic Metabolic Profile (BMP )on 05-02-2024 BUN Normal 7-18 [facility] Comment on above: Result Comment: Canc elled via OM: Order cancelled - Patient discharged Performed By: #### L 500.2500, L100.0100 ####[facility] [address] [place], [address] BUN/CRE Normal 10-20 [facility] Comment on above: Result Comment: Canc elled via OM: Order cancelled - Patient discharged Performed By: #### L 500.2500, L100.0100 ####[facility] [address] [place], [address] CA,Total Normal 8.5-10.1 [facility] Comment on above: Result Comment: Canc elled via OM: Order cancelled - Patient discharged Performed By: #### L 500.2500, L100.0100 ####[facility] [address] [place], [address] CL Normal 98-107 [facility] Comment on above: Result Comment: Canc elled via OM: Order cancelled - Patient discharged Performed By: #### L 500.2500, L100.0100 ####[facility] [address] [place], [address] CO2 Normal 21.0-32.0 [facility] Comment on above: Result Comment: Canc elled via OM: Order cancelled - Patient discharged Performed By: #### L 500.2500, L100.0100 ####[facility] [address] [place], [address] CREAT,SERUM Normal 0.55-1.02 [facility] Comment on above: Result Comment: Canc elled via OM: Order cancelled - Patient discharged Performed By: #### L 500.2500, L100.0100 ####[facility] [address] [place], [address] EST GFR Normal >60 [facility] Comment on above: Result Comment: Canc elled via OM: Order cancelled - Patient discharged Performed By: #### L 500.2500, L100.0100 ####[facility] [address] [place], [address] EST GFR - AA Normal >60 [facility] Comment on above: Result Comment: Canc elled via OM: Order cancelled - Patient discharged Performed By: #### L 500.2500, L100.0100 ####[facility] [address] [place], [address] GAP Normal 5-15 [facility] Comment on above: Result Comment: Canc elled via OM: Order cancelled - Patient discharged Performed By: #### L 500.2500, L100.0100 ####[facility] [address] [place], [address] GLU Normal 74-106 [facility] Comment on above: Result Comment: Canc elled via OM: Order cancelled - Patient discharged Performed By: #### L 500.2500, L100.0100 ####[facility] [address] [place], [address] Potassium Normal 3.5-5.1 [facility] Comment on above: Result Comment: Canc elled via OM: Order cancelled - Patient discharged Performed By: #### L 500.2500, L100.0100 ####[facility] [address] [place], [address] Basic Metabolic Profile (BMP) Normal 136-145 [facility] Comment on above: Result Comment: Canc elled via OM: Order cancelled - Patient discharged Performed By: #### L 500.2500, L100.0100 ####[facility] [address] [place], [address] CBC W/Diff, Automatedon 11-2 Absolute Neut Normal 2.0-7.7 [facility] Comment on above: Result Comment: Canc elled via OM: Order cancelled - Patient discharged Performed By: #### L 500.2500, L100.0100 ####[facility] [address] [place], [address] HCT Normal 37-47 [facility] Comment on above: Result Comment: Canc elled via OM: Order cancelled - Patient discharged Performed By: #### L 500.2500, L100.0100 ####[facility] [address] [place], [address] HGB Normal 12.0-15.0 [facility] Comment on above: Result Comment: Canc elled via OM: Order cancelled - Patient discharged Performed By: #### L 500.2500, L100.0100 ####[facility] [address] [place], [address] MCH Normal 27.0-32.0 [facility] Comment on above: Result Comment: Canc elled via OM: Order cancelled - Patient discharged Performed By: #### L 500.2500, L100.0100 ####[facility] [address] [place], [address] MCHC Normal 32-36 [facility] Comment on above: Result Comment: Canc elled via OM: Order cancelled - Patient discharged Performed By: #### L 500.2500, L100.0100 ####[facility] [address] [place], [address] MCV Normal 81-99 [facility] Comment on above: Result Comment: Canc elled via OM: Order cancelled - Patient discharged Performed By: #### L 500.2500, L100.0100 ####[facility] [address] [place], [address] NEUT% Normal 47-70 [facility] Comment on above: Result Comment: Canc elled via OM: Order cancelled - Patient discharged Performed By: #### L 500.2500, L100.0100 ####[facility] [address] [place], [address] PLT Normal 150-450 [facility] Comment on above: Result Comment: Canc elled via OM: Order cancelled - Patient discharged Performed By: #### L 500.2500, L100.0100 ####[facility] [address] [place], [address] RBC Normal 4.2-5.4 [facility] Comment on above: Result Comment: Canc elled via OM: Order cancelled - Patient discharged Performed By: #### L 500.2500, L100.0100 ####[facility] [address] [place], [address] RDW CV Normal 11.6-14.6 [facility] Comment on above: Result Comment: Canc elled via OM: Order cancelled - Patient discharged Performed By: #### L 500.2500, L100.0100 ####[facility] [address] [place], [address] RDW SD Normal 35.1-43.9 [facility] Comment on above: Result Comment: Canc elled via OM: Order cancelled - Patient discharged Performed By: #### L 500.2500, L100.0100 ####[facility] [address] [place], [address] WBC Normal 4.4-11.0 [facility] Comment on above: Result Comment: Canc elled via OM: Order cancelled - Patient discharged Performed By: #### L 500.2500, L100.0100 ####[facility] [address] [place], [address] Basic Metabolic Profile (BMP )on 05-01-2024 BUN Normal 7-18 [facility] Comment on above: Result Comment: Canc elled via OM: Order cancelled - Patient discharged Performed By: #### L 100.0100, L500.2500 ####[facility] [address] [place], [address] BUN/CRE Normal 10-20 [facility] Comment on above: Result Comment: Canc elled via OM: Order cancelled - Patient discharged Performed By: #### L 100.0100, L500.2500 ####[facility] [address] [place], [address] CA,Total Normal 8.5-10.1 [facility] Comment on above: Result Comment: Canc elled via OM: Order cancelled - Patient discharged Performed By: #### L 100.0100, L500.2500 ####[facility] [address] [place], [address] CL Normal 98-107 [facility] Comment on above: Result Comment: Canc elled via OM: Order cancelled - Patient discharged Performed By: #### L 100.0100, L500.2500 ####[facility] [address] [place], [address] CO2 Normal 21.0-32.0 [facility] Comment on above: Result Comment: Canc elled via OM: Order cancelled - Patient discharged Performed By: #### L 100.0100, L500.2500 ####[facility] [address] [place], [address] CREAT,SERUM Normal 0.55-1.02 [facility] Comment on above: Result Comment: Canc elled via OM: Order cancelled - Patient discharged Performed By: #### L 100.0100, L500.2500 ####[facility] [address] [place], [address] EST GFR Normal >60 [facility] Comment on above: Result Comment: Canc elled via OM: Order cancelled - Patient discharged Performed By: #### L 100.0100, L500.2500 ####[facility] [address] [place], [address] EST GFR - AA Normal >60 [facility] Comment on above: Result Comment: Canc elled via OM: Order cancelled - Patient discharged Performed By: #### L 100.0100, L500.2500 ####[facility] [address] [place], [address] GAP Normal 5-15 [facility] Comment on above: Result Comment: Canc elled via OM: Order cancelled - Patient discharged Performed By: #### L 100.0100, L500.2500 ####[facility] [address] [place], [address] GLU Normal 74-106 [facility] Comment on above: Result Comment: Canc elled via OM: Order cancelled - Patient discharged Performed By: #### L 100.0100, L500.2500 ####[facility] [address] [place], [address] Potassium Normal 3.5-5.1 [facility] Comment on above: Result Comment: Canc elled via OM: Order cancelled - Patient discharged Performed By: #### L 100.0100, L500.2500 ####[facility] [address] [place], [address] Basic Metabolic Profile (BMP) Normal 136-145 [facility] Comment on above: Result Comment: Canc elled via OM: Order cancelled - Patient discharged Performed By: #### L 100.0100, L500.2500 ####[facility] [address] [place], [address] CBC W/Diff, Automatedon 11-2 Absolute Neut Normal 2.0-7.7 [facility] Comment on above: Result Comment: Canc elled via OM: Order cancelled - Patient discharged Performed By: #### L 100.0100, L500.2500 ####[facility] [address] [place], [address] HCT Normal 37-47 [facility] Comment on above: Result Comment: Canc elled via OM: Order cancelled - Patient discharged Performed By: #### L 100.0100, L500.2500 ####[facility] [address] [place], [address] HGB Normal 12.0-15.0 [facility] Comment on above: Result Comment: Canc elled via OM: Order cancelled - Patient discharged Performed By: #### L 100.0100, L500.2500 ####[facility] [address] [place], [address] MCH Normal 27.0-32.0 [facility] Comment on above: Result Comment: Canc elled via OM: Order cancelled - Patient discharged Performed By: #### L 100.0100, L500.2500 ####[facility] [address] [place], [address] MCHC Normal 32-36 [facility] Comment on above: Result Comment: Canc elled via OM: Order cancelled - Patient discharged Performed By: #### L 100.0100, L500.2500 ####[facility] [address] [place], [address] MCV Normal 81-99 [facility] Comment on above: Result Comment: Canc elled via OM: Order cancelled - Patient discharged Performed By: #### L 100.0100, L500.2500 ####[facility] [address] [place], [address] NEUT% Normal 47-70 [facility] Comment on above: Result Comment: Canc elled via OM: Order cancelled - Patient discharged Performed By: #### L 100.0100, L500.2500 ####[facility] [address] [place], [address] PLT Normal 150-450 [facility] Comment on above: Result Comment: Canc elled via OM: Order cancelled - Patient discharged Performed By: #### L 100.0100, L500.2500 ####[facility] [address] [place], [address] RBC Normal 4.2-5.4 [facility] Comment on above: Result Comment: Canc elled via OM: Order cancelled - Patient discharged Performed By: #### L 100.0100, L500.2500 ####[facility] [address] [place], [address] RDW CV Normal 11.6-14.6 [facility] Comment on above: Result Comment: Canc elled via OM: Order cancelled - Patient discharged Performed By: #### L 100.0100, L500.2500 ####[facility] [address] [place], [address] RDW SD Normal 35.1-43.9 [facility] Comment on above: Result Comment: Canc elled via OM: Order cancelled - Patient discharged Performed By: #### L 100.0100, L500.2500 ####[facility] [address] [place], [address] WBC Normal 4.4-11.0 [facility] Comment on above: Result Comment: Canc elled via OM: Order cancelled - Patient discharged Performed By: #### L 100.0100, L500.2500 ####[facility] [address] [place], [address] Basic Metabolic Profile (BMP )on 04-30-2024 BUN Normal -18 [facility] Comment on above: Result Comment: Canc elled via OM: Order cancelled - Patient discharged Performed By: #### L 500.2500, L100.0100 ####[facility] [address] [place], [address] BUN/CRE Normal 10-20 [facility] Comment on above: Result Comment: Canc elled via OM: Order cancelled - Patient discharged Performed By: #### L 500.2500, L100.0100 ####[facility] [address] [place], [address] CA,Total Normal 8.5-10.1 [facility] Comment on above: Result Comment: Canc elled via OM: Order cancelled - Patient discharged Performed By: #### L 500.2500, L100.0100 ####[facility] [address] [place], [address] CL Normal 98-107 [facility] Comment on above: Result Comment: Canc elled via OM: Order cancelled - Patient discharged Performed By: #### L 500.2500, L100.0100 ####[facility] [address] [place], [address] CO2 Normal 21.0-32.0 [facility] Comment on above: Result Comment: Canc elled via OM: Order cancelled - Patient discharged Performed By: #### L 500.2500, L100.0100 ####[facility] [address] [place], [address] CREAT,SERUM Normal 0.55-1.02 [facility] Comment on above: Result Comment: Canc elled via OM: Order cancelled - Patient discharged Performed By: #### L 500.2500, L100.0100 ####[facility] [address] [place], [address] EST GFR Normal >60 [facility] Comment on above: Result Comment: Canc elled via OM: Order cancelled - Patient discharged Performed By: #### L 500.2500, L100.0100 ####[facility] [address] [place], [address] EST GFR - AA Normal >60 [facility] Comment on above: Result Comment: Canc elled via OM: Order cancelled - Patient discharged Performed By: #### L 500.2500, L100.0100 ####[facility] [address] [place], [address] GAP Normal 5-15 [facility] Comment on above: Result Comment: Canc elled via OM: Order cancelled - Patient discharged Performed By: #### L 500.2500, L100.0100 ####[facility] [address] [place], [address] GLU Normal 74-106 [facility] Comment on above: Result Comment: Canc elled via OM: Order cancelled - Patient discharged Performed By: #### L 500.2500, L100.0100 ####[facility] [address] [place], [address] Potassium Normal 3.5-5.1 [facility] Comment on above: Result Comment: Canc elled via OM: Order cancelled - Patient discharged Performed By: #### L 500.2500, L100.0100 ####[facility] [address] [place], [address] Basic Metabolic Profile (BMP) Normal 136-145 [facility] Comment on above: Result Comment: Canc elled via OM: Order cancelled - Patient discharged Performed By: #### L 500.2500, L100.0100 ####[facility] [address] [place], [address] CBC W/Diff, Automatedon 11-2 Absolute Neut Normal 2.0-7.7 [facility] Comment on above: Result Comment: Canc elled via OM: Order cancelled - Patient discharged Performed By: #### L 500.2500, L100.0100 ####[facility] [address] [place], [address] HCT Normal 37-47 [facility] Comment on above: Result Comment: Canc elled via OM: Order cancelled - Patient discharged Performed By: #### L 500.2500, L100.0100 ####[facility] [address] [place], [address] HGB Normal 12.0-15.0 [facility] Comment on above: Result Comment: Canc elled via OM: Order cancelled - Patient discharged Performed By: #### L 500.2500, L100.0100 ####[facility] [address] [place], [address] MCH Normal 27.0-32.0 [facility] Comment on above: Result Comment: Canc elled via OM: Order cancelled - Patient discharged Performed By: #### L 500.2500, L100.0100 ####[facility] [address] [place], [address] MCHC Normal 32-36 [facility] Comment on above: Result Comment: Canc elled via OM: Order cancelled - Patient discharged Performed By: #### L 500.2500, L100.0100 ####[facility] [address] [place], [address] MCV Normal 81-99 [facility] Comment on above: Result Comment: Canc elled via OM: Order cancelled - Patient discharged Performed By: #### L 500.2500, L100.0100 ####[facility] [address] [place], [address] NEUT% Normal 47-70 [facility] Comment on above: Result Comment: Canc elled via OM: Order cancelled - Patient discharged Performed By: #### L 500.2500, L100.0100 ####[facility] [address] [place], [address] PLT Normal 150-450 [facility] Comment on above: Result Comment: Canc elled via OM: Order cancelled - Patient discharged Performed By: #### L 500.2500, L100.0100 ####[facility] [address] [place], [address] RBC Normal 4.2-5.4 [facility] Comment on above: Result Comment: Canc elled via OM: Order cancelled - Patient discharged Performed By: #### L 500.2500, L100.0100 ####[facility] [address] [place], [address] RDW CV Normal 11.6-14.6 [facility] Comment on above: Result Comment: Canc elled via OM: Order cancelled - Patient discharged Performed By: #### L 500.2500, L100.0100 ####[facility] [address] [place], [address] RDW SD Normal 35.1-43.9 [facility] Comment on above: Result Comment: Canc elled via OM: Order cancelled - Patient discharged Performed By: #### L 500.2500, L100.0100 ####[facility] [address] [place], [address] WBC Normal 4.4-11.0 [facility] Comment on above: Result Comment: Canc elled via OM: Order cancelled - Patient discharged Performed By: #### L 500.2500, L100.0100 ####[facility] [address] [place], [address] Absolute neutrophil countOrd ered By: Talisha Boykin on 04-29-2024 Absolute neutrophil count 7.8 X10^3/uL High 2.0-7.7 [facility] Basic Metabolic Profile (BMP )on 04-29-2024 BUN/CRE 31.5 RATIO High 10-20 [facility] Comment on above: Performed By: #### L 100.0100, L500.2500 ####[facility] [address] [place], [address] CA,Total 8.1 mg/dL Low 8.5-10.1 [facility] Comment on above: Performed By: #### L 100.0100, L500.2500 ####[facility] [address] [place], [address] Chloride [Moles/Vol] 104 mmol/L Normal 98-107 [facility] Comment on above: Performed By: #### L 100.0100, L500.2500 ####[facility] [address] [place], [address] CO2 [Moles/Vol] 27.0 mmol/L Normal 21.0-32.0 [facility] Comment on above: Performed By: #### L 100.0100, L500.2500 ####[facility] [address] [place], [address] Creatinine [Mass/Vol] 0.70 mg/dL Normal 0.55-1.02 [facility] Comment on above: Result Comment: The validity of the calculated GFR GFRAA in patients over70 years has not been determined. Clinical correlation isessential. Performed By: #### L 100.0100, L500.2500 ####[facility] [address] [place], [address] ECRCL 91.42 ml/min Normal [facility] Comment on above: Performed By: #### L 100.0100, L500.2500 ####[facility] [address] [place], [address] EST GFR - AA 113 mL/min Normal >60 [facility] Comment on above: Result Comment: Afri can Citizen [place] GFR Calc Performed By: #### L 100.0100, L500.2500 ####[facility] [address] [place], [address] GAP 4 Low 5-15 [facility] Comment on above: Performed By: #### L 100.0100, L500.2500 ####[facility] [address] [place], [address] GFR/1.73 sq M.predicted among non-blacks MDRD (S/P/Bld) [Vol rate/Area] 94 mL/min/{1.73_m2} Normal >60 [facility] Comment on above: Result Comment: Non- GFR Calc Performed By: #### L 100.0100, L500.2500 ####[facility] [address] [place], [address] Glucose [Mass/Vol] 231 mg/dL High 74-106 [facility] Comment on above: Result Comment: Gluc ose result greater than or equal to 200 mg/dLsuggests DIABETES MELLITUS per A.D.A. criteria. Performed By: #### L 100.0100, L500.2500 ####[facility] [address] [place], [address] Potassium [Moles/Vol] 4.7 mmol/L Normal 3.5-5.1 [facility] Comment on above: Performed By: #### L 100.0100, L500.2500 ####[facility] [address] [place], [address] Sodium [Moles/Vol] 134 mmol/L Low 136-145 [facility] Comment on above: Performed By: #### L 100.0100, L500.2500 ####[facility] [address] [place], [address] Urea nitrogen [Mass/Vol] 22 mg/dL High 7-18 [facility] Comment on above: Performed By: #### L 100.0100, L500.2500 ####[facility] [address] [place], [address] Basophil percentageOrdered B y: Talishaneville Boykin on 04-29-2024 Basophil percentage 0.5 % 0-1 [facility] Bedside Glucoseon 04-29-2024 [place] GLU 277 mg/dL High 74-106 [facility] Comment on above: Result Comment: TALIA CHAMBERS OF PATIENT CARE PER NURSING PROTOCOL Performed By: #### L 501.080 ####[facility] [address] [place], [address] Blood urea nitrogen (BUN)/cr eatinine ratioOrdered By: Talisha Ashutosh on 04-29-2024 Blood urea nitrogen (BUN)/creatinine ratio 31.5 RATIO High 10-20 [facility] CBC W/Diff, Automatedon 04-05 Absolute Lymph 1.93 X10 3/uL Normal 0.83-4.51 [facility] Comment on above: Performed By: #### L 100.0100, L500.2500 ####[facility] [address] [place], [address] Absolute Neut 7.8 X10 3/uL High 2.0-7.7 [facility] Comment on above: Performed By: #### L 100.0100, L500.2500 ####[facility] [address] [place], [address] Basophils/100 WBC (Bld) 0.5 % Normal 0-1 [facility] Comment on above: Performed By: #### L 100.0100, L500.2500 ####[facility] [address] [place], [address] Eosinophils/100 WBC (Bld) 0.8 % Normal 0-5 [facility] Comment on above: Performed By: #### L 100.0100, L500.2500 ####[facility] [address] [place], [address] Erythrocyte distribution width (RBC) [Ratio] 13.6 % Normal 11.6-14.6 [facility] Comment on above: Performed By: #### L 100.0100, L500.2500 ####[facility] [address] [place], [address] Hematocrit (Bld) [Volume fraction] 34.3 % Low 37-47 [facility] Comment on above: Performed By: #### L 100.0100, L500.2500 ####[facility] [address] [place], [address] Hemoglobin (Bld) [Mass/Vol] 11.2 g/dL Low 12.0-15.0 [facility] Comment on above: Performed By: #### L 100.0100, L500.2500 ####[facility] [address] [place], [address] IG% 1.100 High 0.0-0.9 [facility] Comment on above: Result Comment: IG% - Immature Granulocytes (promyelocytes, myelocytes andmetamyelocytes) > 1% indicates that a LEFT SHIFT is Present. Performed By: #### L 100.0100, L500.2500 ####[facility] [address] [place], [address] Lymphocytes/100 WBC (Bld) 18.4 % Low 19-41 [facility] Comment on above: Performed By: #### L 100.0100, L500.2500 ####[facility] [address] [place], [address] MCH (RBC) [Entitic mass] 27.2 pg Normal 27.0-32.0 [facility] Comment on above: Performed By: #### L 100.0100, L500.2500 ####[facility] [address] [place], [address] MCHC (RBC) [Mass/Vol] 32.7 g/dL Normal 32-36 [facility] Comment on above: Performed By: #### L 100.0100, L500.2500 ####[facility] [address] [place], [address] MCV (RBC) [Entitic vol] 83.3 fL Normal 81-99 [place] Comment on above: Performed By: #### L 100.0100, L500.2500 ####[facility] [address] [place], [address] Monocytes/100 WBC (Bld) 4.8 % Normal 0-10 [facility] Comment on above: Performed By: #### L 100.0100, L500.2500 ####[facility] [address] [place], [address] Neutrophils/100 WBC (Bld) 74.4 % High 47-70 [facility] Comment on above: Performed By: #### L 100.0100, L500.2500 ####[facility] [address] [place], [address] Nucleated RBC (Bld) [#/Vol] 0 10*3/uL Normal 0-5 [facility] Comment on above: Performed By: #### L 100.0100, L500.2500 ####[facility] [address] [place], [address] Platelet mean volume (Bld) [Entitic vol] 9.6 fL Normal 6.2-12.0 [facility] Comment on above: Performed By: #### L 100.0100, L500.2500 ####[facility] [address] [place], [address] Platelets (Bld) [#/Vol] 312 10*3/uL Normal 150-450 [facility] Comment on above: Performed By: #### L 100.0100, L500.2500 ####[facility] [address] [place], [address] RBC (Bld) [#/Vol] 4.12 10*6/uL Low 4.2-5.4 [facility] Comment on above: Performed By: #### L 100.0100, L500.2500 ####[facility] [address] [place], [address] RDW SD 41.0 fl Normal 35.1-43.9 [facility] Comment on above: Performed By: #### L 100.0100, L500.2500 ####[facility] [address] [place], [address] WBC (Bld) [#/Vol] 10.5 10*3/uL Normal 4.4-11.0 [facility] Comment on above: Performed By: #### L 100.0100, L500.2500 ####[facility] [address] [place], [address] Calcium [Mass/Vol]Ordered By : Talisha Boykin on 04-29-2024 Serum or plasma calcium measurement (mass/volume) 8.1 mg/dL Low 8.5-10.1 [facility] Carbon dioxide measurementOr dered By: Talisha Boykin on 04-29-2024 Carbon dioxide measurement 27.0 mmol/L 21.0-32.0 [facility] Chloride measurementOrdered By: Talisha Boykin on 04-29-2024 Chloride measurement 104 mmol/L 98-107 [facility] Creatinine [Mass/Vol]Ordered By: Talisha Boykin on 04-29-2024 Serum or plasma creatinine measurement (mass/volume) 0.70 mg/dL 0.55-1.02 [facility] Eosinophil percentageOrdered By: Talisha Boykin on 04-29-2024 Eosinophil percentage 0.8 % 0-5 [facility] Erythrocyte distribution wid th (RBC) [Entitic vol]Ordered By: Talisha Boykin on 04-29-2024 Erythrocyte distribution width standard deviation 41.0 fl 35.1-43.9 [facility] Erythrocyte distribution wid th (RBC) [Ratio]Ordered By: Talisha Boykin on 04-29-2024 Erythrocyte distribution width ratio 13.6 % 11.6-14.6 [facility] Estimated glomerular filtrat ion rate (GFR) AmericanOrdered By: Talisha Boykin on 04-29-2024 Estimated glomerular filtration rate (GFR) 113 mL/min >60 [facility] Estimation of creatinine sylvain aranceOrdered By: Talisha Boykin on 04-29-2024 Estimation of creatinine clearance 91.42 ml/min [facility] Glomerular filtration rate ( GFR) estimationOrdered By: Talisha Boykin on 04-29-2024 Glomerular filtration rate (GFR) estimation 94 mL/min >60 [facility] Glucose measurementOrdered B y: Talisha Boykin on 04-29-2024 Glucose measurement 231 mg/dL High 74-106 [facility] Glucose measurement at bedsi deOrdered By: Talisha Boykin on 04-29-2024 Glucose measurement at bedside 277 mg/dL High 74-106 [facility] Hematocrit Auto (Bld) [Volum e fraction]Ordered By: Talisha Boykin on 04-29-2024 Automated blood hematocrit (percentage) 34.3 % Low 37-47 [facility] Hemoglobin measurementOrdere d By: Talisha Boykin on 04-29-2024 Hemoglobin measurement 11.2 g/dL Low 12.0-15.0 [facility] Immature granulocytes/100 WB C Auto (Bld)Ordered By: Talisha Boykin on 04-29-2024 Automated immature granulocyte percentage 1.100 % High 0.0-0.9 [facility] Lymphocytes Auto (Unsp spec) [#/Vol]Ordered By: Talisha Boykin on 04-29-2024 Absolute lymphocyte count 1.93 X10^3/uL 0.83-4.51 [facility] Lymphocytes/100 WBC Auto (Un sp spec)Ordered By: Talisha Boykin on 04-29-2024 Automated lymphocyte count as percentage of total leukocytes 18.4 % Low 19-41 [facility] MCV (RBC) [Entitic vol]Order ed By: Talisha Boykin on 04-29-2024 MCV (mean corpuscular volume) determination 83.3 fL 81-99 [facility] Mean corpuscular hemoglobin (MCH) determinationOrdered By: Talisha Boykin on 04-29-2024 Mean corpuscular hemoglobin (MCH) determination 27.2 pg 27.0-32.0 [facility] Mean corpuscular hemoglobin concentration (MCHC) determinationOrdered By: Talisha Boykin on 04-29-2024 Mean corpuscular hemoglobin concentration (MCHC) determination 32.7 g/dL 32-36 [facility] Mean platelet volume determi nationOrdered By: Talisha Boykin on 04-29-2024 Mean platelet volume determination 9.6 fl 6.2-12.0 [facility] Monocyte percentageOrdered B y: Talisha Boykin on 04-29-2024 Monocyte percentage 4.8 % 0-10 [facility] Neutrophil percentageOrdered By: Talisha Byokin on 04-29-2024 Neutrophil percentage 74.4 % High 47-70 [facility] Nucleated red blood cell per centageOrdered By: Talisha Boykin on 04-29-2024 Nucleated red blood cell percentage 0 % 0-5 [facility] Platelet countOrdered By: Na helen Boykin on 04-29-2024 Platelet count 312 K/mm3 150-450 [facility] Potassium measurementOrdered By: Talisha Boykin on 04-29-2024 Potassium measurement 4.7 mmol/L 3.5-5.1 [facility] RBC Auto (Bld) [#/Vol]Ordere d By: Talisha Boykin on 04-29-2024 Automated blood erythrocyte count 4.12 M/mm3 Low 4.2-5.4 [facility] Serum anion gap measurementO rdered By: Talisha Boykin on 04-29-2024 Serum anion gap measurement 4 Low 5-15 [facility] Sodium levelOrdered By: Talisha Boykin on 04-29-2024 Sodium level 134 mmol/L Low 136-145 [facility] Urea nitrogen [Mass/Vol]Orde red By: Talisha Boykin on 04-29-2024 Serum or plasma urea nitrogen measurement (mass/volume) 22 mg/dL High 7-18 [facility] White blood cell (WBC) count Ordered By: Talisha Boykin on 04-29-2024 White blood cell (WBC) count 10.5 K/mm3 4.4-11.0 [facility] Basic Metabolic Profile (BMP )on 04-28-2024 BUN/CRE 28.0 RATIO High 10-20 [facility] Comment on above: Performed By: #### L 100.0100, L500.2500 ####[facility] [address] [place], [address] CA,Total 8.2 mg/dL Low 8.5-10.1 [facility] Comment on above: Performed By: #### L 100.0100, L500.2500 ####[facility] [address] [place], [address] Chloride [Moles/Vol] 102 mmol/L Normal 98-107 [facility] Comment on above: Performed By: #### L 100.0100, L500.2500 ####[facility] [address] [place], [address] CO2 [Moles/Vol] 27.0 mmol/L Normal 21.0-32.0 [facility] Comment on above: Performed By: #### L 100.0100, L500.2500 ####[facility] [address] [place], [address] Creatinine [Mass/Vol] 0.54 mg/dL Low 0.55-1.02 [facility] Comment on above: Result Comment: The validity of the calculated GFR GFRAA in patients over70 years has not been determined. Clinical correlation isessential. Performed By: #### L 100.0100, L500.2500 ####[facility] [address] [place], [address] ECRCL 118.51 ml/min Normal [facility] Comment on above: Performed By: #### L 100.0100, L500.2500 ####[facility] [address] [place], [address] EST GFR - AA 153 mL/min Normal >60 [facility] Comment on above: Result Comment: Afri can [place] GFR Calc Performed By: #### L 100.0100, L500.2500 ####[facility] [address] [place], [address] GAP 4 Low 5-15 [facility] Comment on above: Performed By: #### L 100.0100, L500.2500 ####[facility] [address] [place], [address] GFR/1.73 sq M.predicted among non-blacks MDRD (S/P/Bld) [Vol rate/Area] 127 mL/min/{1.73_m2} Normal >60 [facility] Comment on above: Result Comment: Non- GFR Calc Performed By: #### L 100.0100, L500.2500 ####[facility] [address] [place], [address] Glucose [Mass/Vol] 134 mg/dL High 74-106 [facility] Comment on above: Result Comment: Fast ing Glucose result greater than or equal to 126 mg/dLsuggests DIABETES MELLITUS per A.D.A. criteria. Performed By: #### L 100.0100, L500.2500 ####[facility] [address] [place], [address] Potassium [Moles/Vol] 4.4 mmol/L Normal 3.5-5.1 [facility] Comment on above: Performed By: #### L 100.0100, L500.2500 ####[facility] [address] [place], [address] Sodium [Moles/Vol] 133 mmol/L Low 136-145 [facility] Comment on above: Performed By: #### L 100.0100, L500.2500 ####[facility] [address] [place], [address] Urea nitrogen [Mass/Vol] 15 mg/dL Normal 7-18 [facility] Comment on above: Performed By: #### L 100.0100, L500.2500 ####[facility] [address] [place], [address] Bedside Glucoseon 04-28-2024 FINGERSTICK GLU 171 mg/dL High [facility]106 [facility] Comment on above: Result Comment: TALIA GEMENT OF PATIENT CARE PER NURSING PROTOCOL Performed By: #### L 501.080 ####[facility] [address] [place], [address] FINGERSTICK GLU 158 mg/dL High -106 [facility] Comment on above: Result Comment: TALIA GEMENT OF PATIENT CARE PER NURSING PROTOCOL Performed By: #### L 501.080 ####[facility] [address] [place], [address] FINGERSTICK GLU 147 mg/dL High 74-106 [facility] Comment on above: Result Comment: TALIA GEMENT OF PATIENT CARE PER NURSING PROTOCOL Performed By: #### L 501.080 ####[facility] [address] [place], [address] FINGERSTICK GLU 148 mg/dL High -106 [facility] Comment on above: Result Comment: TALIA GEMENT OF PATIENT CARE PER NURSING PROTOCOL Performed By: #### L 501.080 ####[facility] [address] [place], [address] CBC W/Diff, Automatedon 11-2 5-2023 Absolute Lymph 1.78 X10 3/uL Normal 0.83-4.51 [facility] Comment on above: Performed By: #### L 100.0100, L500.2500 ####[facility] [address] [place], [address] Absolute Neut 5.6 X10 3/uL Normal 2.0-7.7 [facility] Comment on above: Performed By: #### L 100.0100, L500.2500 ####[facility] [address] [place], [address] Basophils/100 WBC (Bld) 0.6 % Normal 0-1 [facility] Comment on above: Performed By: #### L 100.0100, L500.2500 ####[facility] [address] [place], [address] Eosinophils/100 WBC (Bld) 1.4 % Normal 0-5 [facility] Comment on above: Performed By: #### L 100.0100, L500.2500 ####[facility] [address] [place], [address] Erythrocyte distribution width (RBC) [Ratio] 13.3 % Normal 11.6-14.6 [facility] Comment on above: Performed By: #### L 100.0100, L500.2500 ####[facility] [address] [place], [address] Hematocrit (Bld) [Volume fraction] 38.7 % Normal 37-47 [facility] Comment on above: Performed By: #### L 100.0100, L500.2500 ####[facility] [address] [place], [address] Hemoglobin (Bld) [Mass/Vol] 12.4 g/dL Normal 12.0-15.0 [facility] Comment on above: Performed By: #### L 100.0100, L500.2500 ####[facility] [address] [place], [address] IG% 1.500 High 0.0-0.9 [facility] Comment on above: Result Comment: IG% - Immature Granulocytes (promyelocytes, myelocytes andmetamyelocytes) > 1% indicates that a LEFT SHIFT is Present. Performed By: #### L 100.0100, L500.2500 ####[facility] [address] [place], [address] Lymphocytes/100 WBC (Bld) 22.1 % Normal 19-41 [facility] Comment on above: Performed By: #### L 100.0100, L500.2500 ####[facility] [address] [place], [address] MCH (RBC) [Entitic mass] 26.5 pg Low 27.0-32.0 [facility] Comment on above: Performed By: #### L 100.0100, L500.2500 ####[facility] [address] [place], [address] MCHC (RBC) [Mass/Vol] 32.0 g/dL Normal 32-36 [facility] Comment on above: Performed By: #### L 100.0100, L500.2500 ####[facility] [address] [place], [address] MCV (RBC) [Entitic vol] 82.7 fL Normal 81-99 [facility] Comment on above: Performed By: #### L 100.0100, L500.2500 ####[facility] [address] [place], [address] Monocytes/100 WBC (Bld) 5.3 % Normal 0-10 [facility] Comment on above: Performed By: #### L 100.0100, L500.2500 ####[facility] [address] [place], [address] Neutrophils/100 WBC (Bld) 69.1 % Normal 47-70 [facility] Comment on above: Performed By: #### L 100.0100, L500.2500 ####[facility] [address] [place], [address] Nucleated RBC (Bld) [#/Vol] 0 10*3/uL Normal 0-5 [facility] Comment on above: Performed By: #### L 100.0100, L500.2500 ####[facility] [address] [place], [address] Platelet mean volume (Bld) [Entitic vol] 9.6 fL Normal 6.2-12.0 [facility] Comment on above: Performed By: #### L 100.0100, L500.2500 ####[facility] [address] [place], [address] Platelets (Bld) [#/Vol] 273 10*3/uL Normal 150-450 [facility] Comment on above: Performed By: #### L 100.0100, L500.2500 ####[facility] [address] [place], [address] RBC (Bld) [#/Vol] 4.68 10*6/uL Normal 4.2-5.4 [facility] Comment on above: Performed By: #### L 100.0100, L500.2500 ####[facility] [address] [place], [address] RDW SD 40.3 fl Normal 35.1-43.9 [facility] Comment on above: Performed By: #### L 100.0100, L500.2500 ####[facility] [address] [place], [address] WBC (Bld) [#/Vol] 8.1 10*3/uL Normal 4.4-11.0 [facility] Comment on above: Performed By: #### L 100.0100, L500.2500 ####[facility] [address] [place], [address] Basic Metabolic Profile (BMP )on 04-27-2024 BUN/CRE 25.8 RATIO High 10-20 [facility] Comment on above: Performed By: #### L 500.2500, L100.0100 ####[facility] [address] [place], [address] CA,Total 8.2 mg/dL Low 8.5-10.1 [facility] Comment on above: Performed By: #### L 500.2500, L100.0100 ####[facility] [address] [place], [address] Chloride [Moles/Vol] 98 mmol/L Normal 98-107 [facility] Comment on above: Performed By: #### L 500.2500, L100.0100 ####[facility] [address] [place], [address] CO2 [Moles/Vol] 31.0 mmol/L Normal 21.0-32.0 [facility] Comment on above: Performed By: #### L 500.2500, L100.0100 ####[facility] [address] [place], [address] Creatinine [Mass/Vol] 0.66 mg/dL Normal 0.55-1.02 [facility] Comment on above: Result Comment: The validity of the calculated GFR GFRAA in patients over70 years has not been determined. Clinical correlation isessential. Performed By: #### L 500.2500, L100.0100 ####[facility] [address] [place], [address] ECRCL 96.96 ml/min Normal [facility] Comment on above: Performed By: #### L 500.2500, L100.0100 ####[facility] [address] [place], [address] EST GFR - AA 121 mL/min Normal >60 [facility] Comment on above: Result Comment: Afri can Citizen [place] GFR Calc Performed By: #### L 500.2500, L100.0100 ####[facility] [address] [place], [address] GAP 5 Normal 5-15 [facility] Comment on above: Performed By: #### L 500.2500, L100.0100 ####[facility] [address] [place], [address] GFR/1.73 sq M.predicted among non-blacks MDRD (S/P/Bld) [Vol rate/Area] 100 mL/min/{1.73_m2} Normal >60 [facility] Comment on above: Result Comment: Non- GFR Calc Performed By: #### L 500.2500, L100.0100 ####[facility] [address] [place], [address] Glucose [Mass/Vol] 265 mg/dL High 74-106 [facility] Comment on above: Result Comment: Gluc ose result greater than or equal to 200 mg/dLsuggests DIABETES MELLITUS per A.D.A. criteria. Performed By: #### L 500.2500, L100.0100 ####[facility] [address] [place], [address] Potassium [Moles/Vol] 4.1 mmol/L Normal 3.5-5.1 [facility] Comment on above: Performed By: #### L 500.2500, L100.0100 ####[facility] [address] [place], [address] Sodium [Moles/Vol] 134 mmol/L Low 136-145 [facility] Comment on above: Performed By: #### L 500.2500, L100.0100 ####[facility] [address] [place], [address] Urea nitrogen [Mass/Vol] 17 mg/dL Normal 7-18 [facility] Comment on above: Performed By: #### L 500.2500, L100.0100 ####[facility] [address] [place], [address] Bedside Glucoseon 04-27-2024 FINGERSTICK GLU 188 mg/dL High 74-106 [facility] Comment on above: Result Comment: TALIA GEMENT OF PATIENT CARE PER NURSING PROTOCOL Performed By: #### L 501.080 ####[facility] [address] [place], [address] FINGERSTICK GLU 278 mg/dL High [facility]106 [facility] Comment on above: Result Comment: TALIA GEMENT OF PATIENT CARE PER NURSING PROTOCOL Performed By: #### L 501.080 ####[facility] [address] [place], [address] FINGERSTICK GLU 321 mg/dL High -106 [facility] Comment on above: Result Comment: TALIA GEMENT OF PATIENT CARE PER NURSING PROTOCOL Performed By: #### L 501.080 ####[facility] [address] [place], [address] FINGERSTICK GLU 185 mg/dL High -106 [facility] Comment on above: Result Comment: TALIA GEMENT OF PATIENT CARE PER NURSING PROTOCOL Performed By: #### L 501.080 ####[facility] [address] [place], [address] CBC W/Diff, Automatedon 11- Absolute Lymph 1.39 X10 3/uL Normal 0.83-4.51 [facility] Comment on above: Performed By: #### L 500.2500, L100.0100 ####[facility] [address] [place], [address] Absolute Neut 6.8 X10 3/uL Normal 2.0-7.7 [facility] Comment on above: Performed By: #### L 500.2500, L100.0100 ####[facility] [address] [place], [address] Basophils/100 WBC (Bld) 0.7 % Normal 0-1 [facility] Comment on above: Performed By: #### L 500.2500, L100.0100 ####[facility] [address] [place], [address] Eosinophils/100 WBC (Bld) 1.1 % Normal 0-5 [facility] Comment on above: Performed By: #### L 500.2500, L100.0100 ####[facility] [address] [place], [address] Erythrocyte distribution width (RBC) [Ratio] 13.3 % Normal 11.6-14.6 [facility] Comment on above: Performed By: #### L 500.2500, L100.0100 ####[facility] [address] [place], [address] Hematocrit (Bld) [Volume fraction] 38.1 % Normal 37-47 [facility] Comment on above: Performed By: #### L 500.2500, L100.0100 ####[facility] [address] [place], [address] Hemoglobin (Bld) [Mass/Vol] 12.3 g/dL Normal 12.0-15.0 [facility] Comment on above: Performed By: #### L 500.2500, L100.0100 ####[facility] [address] [place], [address] IG% 1.200 High 0.0-0.9 [facility] Comment on above: Result Comment: IG% - Immature Granulocytes (promyelocytes, myelocytes andmetamyelocytes) > 1% indicates that a LEFT SHIFT is Present. Performed By: #### L 500.2500, L100.0100 ####[facility] [address] [place], [address] Lymphocytes/100 WBC (Bld) 15.7 % Low 19-41 [facility] Comment on above: Performed By: #### L 500.2500, L100.0100 ####[facility] [address] [place], [address] MCH (RBC) [Entitic mass] 26.9 pg Low 27.0-32.0 [facility] Comment on above: Performed By: #### L 500.2500, L100.0100 ####[facility] [address] [place], [address] MCHC (RBC) [Mass/Vol] 32.3 g/dL Normal 32-36 [facility] Comment on above: Performed By: #### L 500.2500, L100.0100 ####[facility] [address] [place], [address] MCV (RBC) [Entitic vol] 83.2 fL Normal 81-99 [facility] Comment on above: Performed By: #### L 500.2500, L100.0100 ####[facility] [address] [place], [address] Monocytes/100 WBC (Bld) 4.9 % Normal 0-10 [facility] Comment on above: Performed By: #### L 500.2500, L100.0100 ####[facility] [address] [place], [address] Neutrophils/100 WBC (Bld) 76.4 % High 47-70 [facility] Comment on above: Performed By: #### L 500.2500, L100.0100 ####[facility] [address] [place], [address] Nucleated RBC (Bld) [#/Vol] 0 10*3/uL Normal 0-5 [facility] Comment on above: Performed By: #### L 500.2500, L100.0100 ####[facility] [address] [place], [address] Platelet mean volume (Bld) [Entitic vol] 9.3 fL Normal 6.2-12.0 [facility] Comment on above: Performed By: #### L 500.2500, L100.0100 ####[facility] [address] [place], [address] Platelets (Bld) [#/Vol] 284 10*3/uL Normal 150-450 [facility] Comment on above: Performed By: #### L 500.2500, L100.0100 ####[facility] [address] [place], [address] RBC (Bld) [#/Vol] 4.58 10*6/uL Normal 4.2-5.4 [facility] Comment on above: Performed By: #### L 500.2500, L100.0100 ####[facility] [address] [place], [address] RDW SD 40.4 fl Normal 35.1-43.9 [facility] Comment on above: Performed By: #### L 500.2500, L100.0100 ####[facility] [address] [place], [address] WBC (Bld) [#/Vol] 8.9 10*3/uL Normal 4.4-11.0 [facility] Comment on above: Performed By: #### L 500.2500, L100.0100 ####[facility] [address] [place], [address] ALP [Catalytic activity/Vol] Ordered By: Nicole Trujillo on 04-26-2024 Serum or plasma alkaline phosphatase measurement 95 U/L 45-117 [facility] ALT [Catalytic activity/Vol] Ordered By: Nicole Trujillo on 04-26-2024 Serum or plasma alanine aminotransferase (ALT) measurement 8 U/L Low 13-56 [facility] Albumin [Mass/Vol]Ordered By : Nicole Trujillo on 04-26-2024 Serum or plasma albumin measurement (mass/volume) 1.7 g/dL Low 3.2-5.0 [facility] Albumin to globulin ratioOrd ered By: Nicole Trujillo on 04-26-2024 Albumin to globulin ratio 0.4 RATIO Low 0.9-2.4 [facility] [facility] Bedside Glucoseon 04-26-2024 FINGERSTICK GLU 319 mg/dL High 74-106 [facility] Comment on above: Result Comment: TALIA GEMENT OF PATIENT CARE PER NURSING PROTOCOL Performed By: #### L 501.080 ####[facility] [address] [place], [address] FINGERSTICK GLU 280 mg/dL High 74-106 [facility] Comment on above: Result Comment: TALIA GEMENT OF PATIENT CARE PER NURSING PROTOCOL Performed By: #### L 501.080 ####[facility] [address] [place], [address] FINGERSTICK GLU 150 mg/dL High 74-106 [facility] Comment on above: Result Comment: TALIA GEMENT OF PATIENT CARE PER NURSING PROTOCOL Performed By: #### L 501.080 ####[facility] [address] [place], [address] Bilirubin, totalOrdered By: Nicole Trujillo on 04-26-2024 Bilirubin, total 0.50 mg/dL 0.20-1.00 [facility] CBC W/Diff, Automatedon 04-05 Absolute Lymph 1.72 X10 3/uL Normal 0.83-4.51 [facility] Comment on above: Performed By: #### L 100.0100, L500.4050, L501.2300, L501.5200 ####[facility] [address] [place], [address] Absolute Neut 6.8 X10 3/uL Normal 2.0-7.7 [facility] Comment on above: Performed By: #### L 100.0100, L500.4050, L501.2300, L501.5200 ####[facility] [address] [place], [address] Basophils/100 WBC (Bld) 0.4 % Normal 0-1 [facility] Comment on above: Performed By: #### L 100.0100, L500.4050, L501.2300, L501.5200 ####[facility] [address] [place], [address] Eosinophils/100 WBC (Bld) 1.2 % Normal 0-5 [facility] Comment on above: Performed By: #### L 100.0100, L500.4050, L501.2300, L501.5200 ####[facility] [address] [place], [address] Erythrocyte distribution width (RBC) [Ratio] 13.2 % Normal 11.6-14.6 [facility] Comment on above: Performed By: #### L 100.0100, L500.4050, L501.2300, L501.5200 ####[facility] [address] [place], [address] Hematocrit (Bld) [Volume fraction] 33.4 % Low 37-47 [facility] Comment on above: Performed By: #### L 100.0100, L500.4050, L501.2300, L501.5200 ####[facility] [address] [place], [address] Hemoglobin (Bld) [Mass/Vol] 11.3 g/dL Low 12.0-15.0 [facility] Comment on above: Performed By: #### L 100.0100, L500.4050, L501.2300, L501.5200 ####[facility] [address] [place], [address] IG% 1.200 High 0.0-0.9 [facility] Comment on above: Result Comment: IG% - Immature Granulocytes (promyelocytes, myelocytes andmetamyelocytes) > 1% indicates that a LEFT SHIFT is Present. Performed By: #### L 100.0100, L500.4050, L501.2300, L501.5200 ####[facility] [address] [place], [address] Lymphocytes/100 WBC (Bld) 18.4 % Low 19-41 [facility] Comment on above: Performed By: #### L 100.0100, L500.4050, L501.2300, L501.5200 ####[facility] [address] [place], [address] MCH (RBC) [Entitic mass] 27.6 pg Normal 27.0-32.0 [facility] Comment on above: Performed By: #### L 100.0100, L500.4050, L501.2300, L501.5200 ####[facility] [address] [place], [address] MCHC (RBC) [Mass/Vol] 33.8 g/dL Normal 32-36 [facility] Comment on above: Performed By: #### L 100.0100, L500.4050, L501.2300, L501.5200 ####[facility] [address] [place], [address] MCV (RBC) [Entitic vol] 81.7 fL Normal 81-99 [facility] Comment on above: Performed By: #### L 100.0100, L500.4050, L501.2300, L501.5200 ####[facility] [address] [place], [address] Monocytes/100 WBC (Bld) 5.7 % Normal 0-10 [facility] Comment on above: Performed By: #### L 100.0100, L500.4050, L501.2300, L501.5200 ####[facility] [address] [place], [address] Neutrophils/100 WBC (Bld) 73.1 % High 47-70 [facility] Comment on above: Performed By: #### L 100.0100, L500.4050, L501.2300, L501.5200 ####[facility] [address] [place], [address] Nucleated RBC (Bld) [#/Vol] 0 10*3/uL Normal 0-5 [facility] Comment on above: Performed By: #### L 100.0100, L500.4050, L501.2300, L501.5200 ####[facility] [address] [place], [address] Platelet mean volume (Bld) [Entitic vol] 9.3 fL Normal 6.2-12.0 [facility] Comment on above: Performed By: #### L 100.0100, L500.4050, L501.2300, L501.5200 ####[facility] [address] [place], [address] Platelets (Bld) [#/Vol] 234 10*3/uL Normal 150-450 [facility] Comment on above: Performed By: #### L 100.0100, L500.4050, L501.2300, L501.5200 ####[facility] [address] [place], [address] RBC (Bld) [#/Vol] 4.09 10*6/uL Low 4.2-5.4 [facility] Comment on above: Performed By: #### L 100.0100, L500.4050, L501.2300, L501.5200 ####[facility] [address] [place], [address] RDW SD 39.2 fl Normal 35.1-43.9 [facility] Comment on above: Performed By: #### L 100.0100, L500.4050, L501.2300, L501.5200 ####[facility] [address] [place], [address] WBC (Bld) [#/Vol] 9.3 10*3/uL Normal 4.4-11.0 [facility] Comment on above: Performed By: #### L 100.0100, L500.4050, L501.2300, L501.5200 ####[facility] [address] [place], [address] Comprehensive Metabolic Prof [facility] 04-26-2024 Albumin [Mass/Vol] 1.7 g/dL Low 3.2-5.0 [facility] Comment on above: Performed By: #### L 100.0100, L500.4050, L501.2300, L501.5200 ####[facility] [address] [place], [address] Albumin/Globulin [Mass ratio] 0.4 {ratio} Low 0.9-2.4 [facility] Comment on above: Performed By: #### L 100.0100, L500.4050, L501.2300, L501.5200 ####[facility] [address] [place], [address] ALK P 95 U/L Normal 45-117 [facility] Comment on above: Performed By: #### L 100.0100, L500.4050, L501.2300, L501.5200 ####[facility] [address] [place], [address] ALT [Catalytic activity/Vol] 8 U/L Low 13-56 [facility] Comment on above: Performed By: #### L 100.0100, L500.4050, L501.2300, L501.5200 ####[facility] [address] [place], [address] AST [Catalytic activity/Vol] 13 U/L Low 15-37 [facility] Comment on above: Performed By: #### L 100.0100, L500.4050, L501.2300, L501.5200 ####[facility] [address] [place], [address] Bilirubin [Mass/Vol] 0.50 mg/dL Normal 0.20-1.00 [facility] Comment on above: Result Comment: For patients on eltrombopag therapy, use of Dimension [place] TBIL is not recommended. Performed By: #### L 100.0100, L500.4050, L501.2300, L501.5200 ####[facility] [address] [place], [address] BUN/CRE 23.5 RATIO High 10-20 [facility] Comment on above: Performed By: #### L 100.0100, L500.4050, L501.2300, L501.5200 ####[facility] [address] [place], [address] CA,Total 8.0 mg/dL Low 8.5-10.1 [facility] Comment on above: Performed By: #### L 100.0100, L500.4050, L501.2300, L501.5200 ####[facility] [address] [place], [address] Chloride [Moles/Vol] 98 mmol/L Normal 98-107 [facility] Comment on above: Performed By: #### L 100.0100, L500.4050, L501.2300, L501.5200 ####[facility] [address] [place], [address] CO2 [Moles/Vol] 30.0 mmol/L Normal 21.0-32.0 [facility] Comment on above: Performed By: #### L 100.0100, L500.4050, L501.2300, L501.5200 ####[facility] [address] [place], [address] Creatinine [Mass/Vol] 0.81 mg/dL Normal 0.55-1.02 [facility] Comment on above: Result Comment: The validity of the calculated GFR GFRAA in patients over70 years has not been determined. Clinical correlation isessential. Performed By: #### L 100.0100, L500.4050, L501.2300, L501.5200 ####[facility] [address] [place], [address] ECRCL 79.01 ml/min Normal [facility] Comment on above: Performed By: #### L 100.0100, L500.4050, L501.2300, L501.5200 ####[facility] [address] [place], [address] EST GFR - AA 96 mL/min Normal >60 [facility] Comment on above: Result Comment: Afri can Citizen [place] GFR Calc Performed By: #### L 100.0100, L500.4050, L501.2300, L501.5200 ####[facility] [address] [place], [address] GAP 4 Low 5-15 [facility] Comment on above: Performed By: #### L 100.0100, L500.4050, L501.2300, L501.5200 ####[facility] [address] [place], [address] GFR/1.73 sq M.predicted among non-blacks MDRD (S/P/Bld) [Vol rate/Area] 79 mL/min/{1.73_m2} Normal >60 [facility] Comment on above: Result Comment: Non- GFR Calc Performed By: #### L 100.0100, L500.4050, L501.2300, L501.5200 ####[facility] [address] [place], [address] Globulin (S) [Mass/Vol] 4.7 g/dL High 2.2-4.2 [place] Comment on above: Performed By: #### L 100.0100, L500.4050, L501.2300, L501.5200 ####[facility] [address] [place], [address] Glucose [Mass/Vol] 146 mg/dL High 74-106 [facility] Comment on above: Result Comment: Fast ing Glucose result greater than or equal to 126 mg/dLsuggests DIABETES MELLITUS per A.D.A. criteria. Performed By: #### L 100.0100, L500.4050, L501.2300, L501.5200 ####[facility] [address] [place], [address] Potassium [Moles/Vol] 3.2 mmol/L Low 3.5-5.1 [facility] Comment on above: Performed By: #### L 100.0100, L500.4050, L501.2300, L501.5200 ####[facility] [address] [place], [address] Sodium [Moles/Vol] 132 mmol/L Low 136-145 [facility] Comment on above: Performed By: #### L 100.0100, L500.4050, L501.2300, L501.5200 ####[facility] [address] [place], [address] T PROT 6.4 g/dL Normal 6.4-8.2 [facility] Comment on above: Performed By: #### L 100.0100, L500.4050, L501.2300, L501.5200 ####[facility] [address] [place], [address] Urea nitrogen [Mass/Vol] 19 mg/dL High 7-18 [facility] Comment on above: Performed By: #### L 100.0100, L500.4050, L501.2300, L501.5200 ####[facility] [address] [place], [address] M R Staph Aureus DNA by PCRo n 04-26-2024 MRSA DNA ASSAY Negative Normal Negative [facility] Comment on above: Performed By: #### L 8200.1000 ####[facility] [address] [place], [address] MRSA Wound DNA by PCRon 04-05 MRSA DNA ASSAY Negative Normal Negative [facility] Comment on above: Order Comment: left breast Performed By: #### L 8200.1075 ####[facility] [address] [place], [address] SA DNA ASSAY Negative Normal Negative [facility] Comment on above: Order Comment: left breast Performed By: #### L 8200.1075 ####[facility] [address] [place], [address] MRSA detection PCROrdered By : Nicole Trujillo on 04-26-2024 MRSA detection PCR Negative Negative [facility] Magnesiumon 04-26-2024 Magnesium [Mass/Vol] 2.2 mg/dL Normal 1.6-2.6 [facility] Comment on above: Performed By: #### L 100.0100, L500.4050, L501.2300, L501.5200 ####[facility] [address] [place], [address] Magnesium measurementOrdered By: Nicole Trujillo on 04-26-2024 Magnesium measurement 2.2 mg/dL 1.6-2.6 [facility] No Panel InformationOrdered By: Nicole Trujillo on 04-26-2024 13 U/L Low 15-37 [facility] Phosphoruson 04-26-2024 Phosphate [Mass/Vol] 3.2 mg/dL Normal 2.5-4.9 [facility] Comment on above: Performed By: #### L 100.0100, L500.4050, L501.2300, L501.5200 ####[facility] [address] [place], [address] Phosphorus measurementOrdere d By: Nicole Trujillo on 04-26-2024 Phosphorus measurement 3.2 mg/dL 2.5-4.9 [facility] Serum globulin measurementOr dered By: Nicole Trujillo on 04-26-2024 Serum globulin measurement 4.7 g/dL High 2.2-4.2 [facility] Total proteinOrdered By: Jenae Trujillo on 04-26-2024 Total protein 6.4 g/dL 6.4-8.2 [facility] Abdomen/Pelvis W IV Cont ONL Yon 04-25-2024 Abdomen/Pelvis W IV Cont ONLY Normal [facility] Bedside Glucoseon 04-25-2024 FINGERSTICK GLU 341 mg/dL High 74-106 [facility] Comment on above: Result Comment: ATLIA GEMENT OF PATIENT CARE PER NURSING PROTOCOL Performed By: #### L 501.080 ####[facility] [address] [place], [address] FINGERSTICK GLU 336 mg/dL High 74-106 [facility] Comment on above: Result Comment: TALIA GEMENT OF PATIENT CARE PER NURSING PROTOCOL Performed By: #### L 501.080 ####[facility] [address] [place], [address] CBC W/Diff, Automatedon 04-05 Absolute Lymph 0.97 X10 3/uL Normal 0.83-4.51 [facility] Comment on above: Performed By: #### L 100.0100, L501.2450, L503.6005, L500.4050 ####[facility] [address] [place], [address] Absolute Neut 10.8 X10 3/uL High 2.0-7.7 [facility] Comment on above: Performed By: #### L 100.0100, L501.2450, L503.6005, L500.4050 ####[facility] [address] [place], [address] Basophils/100 WBC (Bld) 0.4 % Normal 0-1 [facility] Comment on above: Performed By: #### L 100.0100, L501.2450, L503.6005, L500.4050 ####[facility] [address] [place], [address] Eosinophils/100 WBC (Bld) 0.5 % Normal 0-5 [facility] Comment on above: Performed By: #### L 100.0100, L501.2450, L503.6005, L500.4050 ####[facility] [address] [place], [address] Erythrocyte distribution width (RBC) [Ratio] 13.0 % Normal 11.6-14.6 [facility] Comment on above: Performed By: #### L 100.0100, L501.2450, L503.6005, L500.4050 ####[facility] [address] [place], [address] Hematocrit (Bld) [Volume fraction] 39.4 % Normal 37-47 [facility] Comment on above: Performed By: #### L 100.0100, L501.2450, L503.6005, L500.4050 ####[facility] [address] [place], [address] Hemoglobin (Bld) [Mass/Vol] 13.3 g/dL Normal 12.0-15.0 [facility] Comment on above: Performed By: #### L 100.0100, L501.2450, L503.6005, L500.4050 ####[facility] [address] [place], [address] IG% 1.100 High 0.0-0.9 [facility] Comment on above: Result Comment: IG% - Immature Granulocytes (promyelocytes, myelocytes andmetamyelocytes) > 1% indicates that a LEFT SHIFT is Present. Performed By: #### L 100.0100, L501.2450, L503.6005, L500.4050 ####[facility] [address] [place], [address] Lymphocytes/100 WBC (Bld) 7.7 % Low 19-41 [facility] Comment on above: Performed By: #### L 100.0100, L501.2450, L503.6005, L500.4050 ####[facility] [address] [place], [address] MCH (RBC) [Entitic mass] 27.0 pg Normal 27.0-32.0 [facility] Comment on above: Performed By: #### L 100.0100, L501.2450, L503.6005, L500.4050 ####[facility] [address] [place], [address] MCHC (RBC) [Mass/Vol] 33.8 g/dL Normal 32-36 [facility] Comment on above: Performed By: #### L 100.0100, L501.2450, L503.6005, L500.4050 ####[facility] [address] [place], [address] MCV (RBC) [Entitic vol] 79.9 fL Low 81-99 [facility] Comment on above: Performed By: #### L 100.0100, L501.2450, L503.6005, L500.4050 ####[facility] [address] [place], [address] Monocytes/100 WBC (Bld) 4.2 % Normal 0-10 [facility] Comment on above: Performed By: #### L 100.0100, L501.2450, L503.6005, L500.4050 ####[facility] [address] [place], [address] Neutrophils/100 WBC (Bld) 86.1 % High 47-70 [facility] Comment on above: Performed By: #### L 100.0100, L501.2450, L503.6005, L500.4050 ####[facility] [address] [place], [address] Nucleated RBC (Bld) [#/Vol] 0 10*3/uL Normal 0-5 [facility] Comment on above: Performed By: #### L 100.0100, L501.2450, L503.6005, L500.4050 ####[facility] [address] [place], [address] Platelet mean volume (Bld) [Entitic vol] 9.4 fL Normal 6.2-12.0 [facility] Comment on above: Performed By: #### L 100.0100, L501.2450, L503.6005, L500.4050 ####[facility] [address] [place], [address] Platelets (Bld) [#/Vol] 259 10*3/uL Normal 150-450 [facility] Comment on above: Performed By: #### L 100.0100, L501.2450, L503.6005, L500.4050 ####[facility] [address] [place], [address] RBC (Bld) [#/Vol] 4.93 10*6/uL Normal 4.2-5.4 [facility] Comment on above: Performed By: #### L 100.0100, L501.2450, L503.6005, L500.4050 ####[facility] [address] [place], [address] RDW SD 37.1 fl Normal 35.1-43.9 [facility] Comment on above: Performed By: #### L 100.0100, L501.2450, L503.6005, L500.4050 ####[facility] [address] [place], [address] WBC (Bld) [#/Vol] 12.6 10*3/uL High 4.4-11.0 [facility] Comment on above: Performed By: #### L 100.0100, L501.2450, L503.6005, L500.4050 ####[facility] [address] [place], [address] Comprehensive Metabolic Prof [facility] 04-25-2024 Albumin [Mass/Vol] 2.0 g/dL Low 3.2-5.0 [facility] Comment on above: Performed By: #### L 100.0100, L501.2450, L503.6005, L500.4050 ####[facility] [address] [place], [address] Albumin/Globulin [Mass ratio] 0.4 {ratio} Low 0.9-2.4 [facility] Comment on above: Performed By: #### L 100.0100, L501.2450, L503.6005, L500.4050 ####[facility] [address] [place], [address] ALK P 124 U/L High 45-117 [facility] Comment on above: Performed By: #### L 100.0100, L501.2450, L503.6005, L500.4050 ####[facility] [address] [place], [address] ALT [Catalytic activity/Vol] 9 U/L Low 13-56 [facility] Comment on above: Performed By: #### L 100.0100, L501.2450, L503.6005, L500.4050 ####[facility] [address] [place], [address] AST [Catalytic activity/Vol] 17 U/L Normal 15-37 [facility] Comment on above: Performed By: #### L 100.0100, L501.2450, L503.6005, L500.4050 ####[facility] [address] [place], [address] Bilirubin [Mass/Vol] 0.80 mg/dL Normal 0.20-1.00 [facility] Comment on above: Result Comment: For patients on eltrombopag therapy, use of Dimension [place] TBIL is not recommended. Performed By: #### L 100.0100, L501.2450, L503.6005, L500.4050 ####[facility] [address] [place], [address] BUN/CRE 29.4 RATIO High 10-20 [facility] Comment on above: Performed By: #### L 100.0100, L501.2450, L503.6005, L500.4050 ####[facility] [address] [place], [address] CA,Total 8.7 mg/dL Normal 8.5-10.1 [facility] Comment on above: Performed By: #### L 100.0100, L501.2450, L503.6005, L500.4050 ####[facility] [address] [place], [address] Chloride [Moles/Vol] 95 mmol/L Low 98-107 [facility] Comment on above: Performed By: #### L 100.0100, L501.2450, L503.6005, L500.4050 ####[facility] [address] [place], [address] CO2 [Moles/Vol] 29.0 mmol/L Normal 21.0-32.0 [facility] Comment on above: Performed By: #### L 100.0100, L501.2450, L503.6005, L500.4050 ####[facility] [address] [place], [address] Creatinine [Mass/Vol] 0.65 mg/dL Normal 0.55-1.02 [facility] Comment on above: Result Comment: The validity of the calculated GFR GFRAA in patients over70 years has not been determined. Clinical correlation isessential. Performed By: #### L 100.0100, L501.2450, L503.6005, L500.4050 ####[facility] [address] [place], [address] ECRCL 109.13 ml/min Normal [facility] Comment on above: Performed By: #### L 100.0100, L501.2450, L503.6005, L500.4050 ####[facility] [address] [place], [address] EST GFR - AA 123 mL/min Normal >60 [facility] Comment on above: Result Comment: Afri can Citizen [place] GFR Calc Performed By: #### L 100.0100, L501.2450, L503.6005, L500.4050 ####[facility] [address] [place], [address] GAP 6 Normal 5-15 [facility] Comment on above: Performed By: #### L 100.0100, L501.2450, L503.6005, L500.4050 ####[facility] [address] [place], [address] GFR/1.73 sq M.predicted among non-blacks MDRD (S/P/Bld) [Vol rate/Area] 102 mL/min/{1.73_m2} Normal >60 [facility] Comment on above: Result Comment: Non- GFR Calc Performed By: #### L 100.0100, L501.2450, L503.6005, L500.4050 ####[facility] [address] [place], [address] Globulin (S) [Mass/Vol] 5.7 g/dL High 2.2-4.2 [facility] Comment on above: Performed By: #### L 100.0100, L501.2450, L503.6005, L500.4050 ####[facility] [address] [place], [address] Glucose [Mass/Vol] 359 mg/dL High 74-106 [facility] Comment on above: Result Comment: Gluc ose result greater than or equal to 200 mg/dLsuggests DIABETES MELLITUS per A.D.A. criteria. Performed By: #### L 100.0100, L501.2450, L503.6005, L500.4050 ####[facility] [address] [place], [address] Potassium [Moles/Vol] 3.5 mmol/L Normal 3.5-5.1 [facility] Comment on above: Performed By: #### L 100.0100, L501.2450, L503.6005, L500.4050 ####[facility] [address] [place], [address] Sodium [Moles/Vol] 130 mmol/L Low 136-145 [facility] Comment on above: Performed By: #### L 100.0100, L501.2450, L503.6005, L500.4050 ####[facility] [address] [place], [address] T PROT 7.7 g/dL Normal 6.4-8.2 [facility] Comment on above: Performed By: #### L 100.0100, L501.2450, L503.6005, L500.4050 ####[facility] [address] [place], [address] Urea nitrogen [Mass/Vol] 19 mg/dL High 7-18 [facility] Comment on above: Performed By: #### L 100.0100, L501.2450, L503.6005, L500.4050 ####[facility] [address] [place], [address] Emergency Department Summary on 04-25-2024 Emergency Department Summary Normal [facility] H AND P Exam - Hospitaliston 04-25-2024 H&P Exam - Hospitalist Normal [facility] Lactic Acidon 04-25-2024 Lactate [Moles/Vol] 3.0 mmol/L Invalid Interpretation Code 0.4-1.9 [facility] Comment on above: Result Comment: Crit ical Result(s) Called at: 18:55:46 04/25/2024 by:Eneida Elizalde. Results read back by same. Performed By: #### L 503.6005 ####[facility] [address] [place], [address] Lactate [Moles/Vol] 2.0 mmol/L Normal 0.4-1.9 [facility] Comment on above: Order Comment: Y Result Comment: Crit ical Result(s) Called at: 14:43:32 04/25/2024 by:Eneida Short. Results read back by same. Performed By: #### L 100.0100, L501.2450, L503.6005, L500.4050 ####[facility] [address] [place], [address] Lactic acid measurementOrder ed By: Jeremiah Rawls on 04-25-2024 Lactic acid measurement 3.0 mmol/L High 0.4-2.0 [facility] Lipaseon 04-25-2024 Lipase [Catalytic activity/Vol] 22 U/L Normal 13-75 [facility] Comment on above: Result Comment: Gege edgar note:LIPASE revised reference range effective 22.New Lipase methodology. Expected to produce lower valuesthan the previous assay method.NEW Reference Range: 13 - 75 U/L Performed By: #### L 100.0100, L501.2450, L503.6005, L500.4050 ####[facility] [address] [place], [address] Lipase measurementOrdered By : Jeremiah Rawls on 04-25-2024 Lipase measurement 22 U/L 13- [facility] Telephone ([place]) ----- TRENTON JACKSON ([id number]) 1970 [facility] Date Time Provider Department 02/06/24 GERDA RIVERO During your visit today, we recorded the following information about you: Allergies As of Date: 02/06/2024 Noted Allergy Reaction LATEX 01/18/2011 9 - Itching Comments: Red and dry cracking skin Date Reviewed: 10/19/2023 Reviewed by: Jose Antonio Singh APRN.PLUNGER MACHINE OPERATOR - Fully Assessed Reason for Visit: [...] all medications X 4 days per her [id number]-39-0-2017. Problem List As Of Date 02/06/2024 Noted [...] Coronary artery (more content not included)... Normal [facility] 11-20-2023 [facility] Telephone ([facility] ----- TRENTON JACKSON ([id number]) 1970 [facility] Date Time Provider Department 11/20/[address] [facility] During your visit today, we recorded the following information about you: Stephanie De La Cruz 11/20/2023 8:48 AM Signed The patient was discharged from [facility] 10-20-23 with an order to schedule with the Heart Failure Clinic. The Clinic reached out to the patient with no response. Therefore, this is considered a deferral of the Clinic's services at this time. Allergies As of Date: 11/20/2023 Noted Allergy Reaction LATEX 01/18/2011 9 - Itching Comments: Red and dry cracking skin Date Reviewed: 10/19/2023 Reviewed by: Jose Antonio Singh APRN.PLUNGER MACHINE OPERATOR - Fully Assessed Reason for Visit: Orders [271] Cmt: [facility] deferral Prescriptions as of 11/20/2023 - baclofen [...] all medications X 4 days per her [id number]-39-6-2017. Problem List As Of Date 11/20/2023 Noted [...] 07/20/2018 Frailty (more content not included)... Normal [facility] CNPNon 10-22-2023 [facility] Telephone ([facility]) ----- RTENTON JACKSON ([id number]) 1970 [facility] Date Time Provider Department 10/22/[address] [facility] During your visit today, we recorded the following information about you: Stephanie De La Cruz 10/22/2023 9:37 AM Signed Patient was discharged from [facility] 10-20-23 with an order to schedule [...] Reviewed: 10/19/2023 Reviewed by: Jose Antonio Singh APRN.[employer] - Fully Assessed Reason for Visit: Orders [681] Cmt: [facility] order contact/SNF ltr Prescriptions as of [...] all medications X 4 days per her [id number]-66-9-2017. Problem List As Of Date 10/22/2023 Noted [...] 06/08/2018 Avinash (more content not included)... Normal [facility] Basic metabolic 2000 panelon 10-19-2023 Anion gap [Moles/Vol] 12 mmol/L Normal 9-18 [facility] Comment on above: Order Comment: Speci men Type: BLOOD SPECIMEN Ordering Facility: [facility] Address: [address] [place] [address] Performed By: #### 2 4321-2 #### [facility] CLIA [id number] [address] [place] [address] [place] Calcium [Mass/Vol] 8.9 mg/dL Normal 8.5-10.2 [facility] Comment on above: Order Comment: Speci men Type: BLOOD SPECIMEN Ordering Facility: [facility] Address: [address] [place] [address] Performed By: #### 2 4321-2 #### [facility] CLIA [id number] 1 [place] [address] [place] Chloride [Moles/Vol] 103 mmol/L Normal 97-105 [facility] Comment on above: Order Comment: Speci men Type: BLOOD SPECIMEN Ordering Facility: [facility] Address: [address] [place] [address] Performed By: #### 2 4321-2 #### [facility] CLIA [id number] [address] [place] CO2 [Moles/Vol] 22 mmol/L Normal 22-30 [facility] Comment on above: Order Comment: Speci men Type: BLOOD SPECIMEN Ordering Facility: [facility] Address: [address] [place] [address] Performed By: #### 2 4321-2 #### [facility] CLIA [id number] [address] [place] [address] [place] Creatinine [Mass/Vol] 1.07 mg/dL High 0.58-0.96 [facility] Comment on above: Order Comment: Speci men Type: BLOOD SPECIMEN Ordering Facility: [facility] Address: [address] [place] [address] Performed By: #### 2 4321-2 #### [facility] CLIA [id number] [address] [place] [address] [place] Creatinine and Glomerular filtration rate.predicted panel (S/P/Bld) 63 mL/min/1.73m??? Normal >=60 [facility] Comment on above: Order Comment: Radha tony Type: BLOOD SPECIMEN Ordering Facility: [facility] Address: [address] [place] [address] Result Comment: Crissy mated Glomerular Filtration Rate [...] GFR. Performed By: #### 2 4321-2 #### [facility] CLIA [id number] [address] [place] [address] [place] Glucose [Mass/Vol] 104 mg/dL High 74-99 [facility] Comment on above: Order Comment: Radha tony Type: BLOOD SPECIMEN Ordering Facility: [facility] Address: [address] [place] [address] Result Comment: The [place] Diabetes Association (ADA) provides guidance for cutoff [...] Standards of Medical Care in Diabetes 2016, [place] Diabetes Association. Diabetes Care. 2016.39(Suppl 1). Performed By: #### 2 4321-2 #### [facility] CLIA [id number] [address] [place] [address] [place] Potassium [Moles/Vol] 4.2 mmol/L Normal 3.7-5.1 [facility] Comment on above: Order Comment: Radha tony Type: BLOOD SPECIMEN Ordering Facility: [facility] Address: [address] [place] [address] Performed By: #### 2 4321-2 #### [facility] CLIA [id number] [address] Sodium [Moles/Vol] 137 mmol/L Normal 136-144 [facility] Comment on above: Order Comment: Speci men Type: BLOOD SPECIMEN Ordering Facility: [facility] Address: [address] [place] [address] Performed By: #### 2 4321-2 #### [facility] CLIA [id number] [address] Urea nitrogen [Mass/Vol] 49 mg/dL High 7-21 [facility] Comment on above: Order Comment: Speci men Type: BLOOD SPECIMEN Ordering Facility: [facility] Address: [address] [place] [address] Performed By: #### 2 4321-2 #### [facility] CLIA [id number] [address] [facility] CNDSon 10-19-2023 [facility] HNO ID: [id number] Author: TATIANA RAMSAY MD Service: Hospital Medicine Author Type: Nurse Practitioner Type: Discharge Summary Filed: 10/22/2023 09:18 Note Text: ----- Attestation signed by Tatiana Ramsay MD at 10/22/2023 9:18 AM Attending Note I have reviewed the PA/SCREEN PRINTING INSPECTOR note. Additions or changes: None Signature: [...] internal medicine. Schedule an appointment by calling [phone]. You can also be seen at [facility]. Information for this clinic has been attached to your discharge instructions. -Follow-up with Dr. May with orthopedics in 4 weeks -Follow up with the heart failure clinic. AN APPOINTMENT REQUEST HAS BEEN MADE FOR YOU. IF YOU HAVE NOT HEARD FROM THE SCHEDULERS BY SUNDAY PLEASE CALL [phone] TO CONFIRM YOUR APPOINTMENT DATE/TIME -Please work [...] Cleanse with (more content not included)... Normal [facility] CONSULTon 10-19-2023 CONSULT HNO ID: [id number] Author: LATRICIA HERNANDEZ MD Service: Clinical Cardiology [...] daily. insulin (more content not included)... Normal [facility] CONSULT PROGon 10-19-2023 CONSULT PROG HNO ID: [id number] Author: DARLYN CANTOR APRN.PLUNGER MACHINE OPERATOR Service: Wound/Ostomy Author Type: Nurse Practitioner Type: Consult Progress Note Filed: 10/19/2023 11:27 Note Text: WOUND CARE SERVICE CONSULT NUTRITIONAL SERVICES HOST NOTE SERVICE DATE: 10/19/2023 SERVICE TIME: 849 [...] who is seen today with Emma Parikh, Wound/storage manager, and presented to hospital with complaints of [...] Anterior;Proximal;Right;U pper Leg Routine Active Darlyn Cantor, NUTRITIONAL SERVICES HOST.PLUNGER MACHINE OPERATOR - Sp (more content not included)... Normal [facility] ECHOon 10-19-2023 Echocardiography Echocardiography Rep ort: Transthoracic Echo [facility] Date of service: 10/19/2023 10:23:25 AM [facility] Ordering physician: JOSE ANTONIO SINGH Indication: Limited for pericardial effusion Technologist: Mode Galvez [facility] Interpreting physician: Colin Drake MD PATIENT: Name: MRS. TRENTON AJCKSON : 1970 Age: 53 years Gender: F [...] * * Final * * * CC [email or web address] Image : [id number] Normal [facility] ED NOTEon 10-19-2023 ED NOTE HNO ID: [id number] Author: JIMY CHING RN Service: Emergency Medicine Author Type: Registered Nurse Type: ED Notes Filed: 10/19/2023 00:29 Note Text: . Normal [facility] ED NOTE HNO ID: [id number] Author: JIMY CHING RN Service: Emergency Medicine Author Type: Registered Nurse Type: ED Notes Filed: 10/19/2023 00:30 Note Text: Report to floor attempted RN not available to take report Normal [facility] Hepatic function 2000 panelo n 10-19-2023 Albumin [Mass/Vol] 3.4 g/dL Low 3.9-4.9 [facility] Comment on above: Order Comment: Speci men Type: BLOOD SPECIMEN Ordering Facility: [facility] Address: [address] [place] [address] Performed By: #### 2 4321-2 #### [facility] CLIA [id number] 1 [place] [address] [place] ALP [Catalytic activity/Vol] 134 U/L High 34-123 [facility] Comment on above: Order Comment: Speci men Type: BLOOD SPECIMEN Ordering Facility: [facility] Address: [address] [place] [address] Performed By: #### 2 4321-2 #### [facility] CLIA [id number] [address] [facility] ALT With P-5'-P [Catalytic activity/Vol] 17 U/L Normal 7-38 [facility] Comment on above: Order Comment: Speci men Type: BLOOD SPECIMEN Ordering Facility: [facility] Address: [address] [place] [address] Performed By: #### 2 4321-2 #### [facility] CLIA [id number] [address] AST With P-5'-P [Catalytic activity/Vol] 19 U/L Normal 13-35 [facility] Comment on above: Order Comment: Speci men Type: BLOOD SPECIMEN Ordering Facility: [facility] Address: [address] [place] [address] Performed By: #### 2 4321-2 #### [facility] CLIA [id number] [address] Bilirubin [Mass/Vol] 0.5 mg/dL Normal 0.2-1.3 [facility] Comment on above: Order Comment: Speci men Type: BLOOD SPECIMEN Ordering Facility: [facility] Address: [address] [place] [address] Performed By: #### 2 4321-2 #### [facility] CLIA [id number] [address] Bilirubin.conjugated [Mass/Vol] mg/dL Normal <0.2 [facility] Comment on above: Order Comment: Speci men Type: BLOOD SPECIMEN Ordering Facility: [facility] Address: [address] [place] [address] Performed By: #### 2 4321-2 #### [facility] CLIA [id number] [address] [place] [address] [place] Protein [Mass/Vol] 6.7 g/dL Normal 6.3-8.0 [facility] Comment on above: Order Comment: Speci men Type: BLOOD SPECIMEN Ordering Facility: [facility] Address: [address] [place] [address] Performed By: #### 2 4321-2 #### [facility] CLIA [id number] [address] [place] CBC W Auto Differential pane l (Bld)on 10-18-2023 Basophils (Bld) [#/Vol] 0.05 10*3/uL Normal <0.11 [facility] Comment on above: Order Comment: Speci men Type: BLOOD SPECIMEN Ordering Facility: [facility] Address: [address] [place] [address] Performed By: #### 2 4321-2 #### [facility] CLIA [id number] [address] [place] Basophils/100 WBC (Bld) 0.6 % Normal [place] Comment on above: Order Comment: Speci men Type: BLOOD SPECIMEN Ordering Facility: [facility] Address: [address] [place] [address] Performed By: #### 2 4321-2 #### [facility] CLIA [id number] [address] Differential cell count method Nom (Bld) Auto Normal [facility] Comment on above: Order Comment: Speci men Type: BLOOD SPECIMEN Ordering Facility: [facility] Address: [address] [place] [address] Performed By: #### 2 4321-2 #### [facility] CLIA [id number] 1 [place] [address] [place] Eosinophils (Bld) [#/Vol] 0.10 10*3/uL Normal <0.46 [facility] Comment on above: Order Comment: Speci men Type: BLOOD SPECIMEN Ordering Facility: [facility] Address: [address] [place] [address] Performed By: #### 2 4321-2 #### [facility] CLIA [id number] [address] [place] Eosinophils/100 WBC (Bld) 1.2 % Normal [facility] Comment on above: Order Comment: Speci men Type: BLOOD SPECIMEN Ordering Facility: [facility] Address: [address] [place] [address] Performed By: #### 2 4321-2 #### [facility] CLIA [id number] [address] [place] Erythrocyte distribution width (RBC) [Ratio] 16.2 % High 11.5-15.0 [facility] Comment on above: Order Comment: Speci men Type: BLOOD SPECIMEN Ordering Facility: [facility] Address: [address] [place] [address] Performed By: #### 2 4321-2 #### [facility] CLIA [id number] [address] [place] Hematocrit (Bld) [Volume fraction] 36.5 % Normal 36.0-46.0 [facility] Comment on above: Order Comment: Speci men Type: BLOOD SPECIMEN Ordering Facility: [facility] Address: [address] [place] [address] Performed By: #### 2 4321-2 #### [facility] CLIA [id number] [address] [place] Hemoglobin (Bld) [Mass/Vol] 11.6 g/dL Normal 11.5-15.5 [facility] Comment on above: Order Comment: Speci men Type: BLOOD SPECIMEN Ordering Facility: [facility] Address: [address] [place] [address] Performed By: #### 2 4321-2 #### [facility] CLIA [id number] [address] [place] Immature granulocytes (Bld) [#/Vol] 0.03 10*3/uL Normal <0.10 [facility] Comment on above: Order Comment: Speci men Type: BLOOD SPECIMEN Ordering Facility: [facility] Address: [address] [place] [address] Performed By: #### 2 4321-2 #### [facility] CLIA [id number] [address] Immature granulocytes/100 WBC (Bld) 0.4 % Normal [facility] Comment on above: Order Comment: Speci men Type: BLOOD SPECIMEN Ordering Facility: [facility] Address: [address] [place] [address] Performed By: #### 2 4321-2 #### [facility] CLIA [id number] [address] [place] Lymphocytes (Bld) [#/Vol] 1.82 10*3/uL Normal 1.00-4.00 [facility] Comment on above: Order Comment: Speci men Type: BLOOD SPECIMEN Ordering Facility: [facility] Address: [address] [place] [address] Performed By: #### 2 1-2 #### [facility] CLIA [id number] [address] Lymphocytes/100 WBC (Bld) 22.3 % Normal [facility] Comment on above: Order Comment: Speci men Type: BLOOD SPECIMEN Ordering Facility: [facility] Address: [address] [place] [address] Performed By: #### 2 4321-2 #### [facility] CLIA [id number] [address] [place] MCH (RBC) [Entitic mass] 27.3 pg Normal 26.0-34.0 [facility] Comment on above: Order Comment: Speci men Type: BLOOD SPECIMEN Ordering Facility: [facility] Address: [address] [place] [address] Performed By: #### 2 4321-2 #### [facility] CLIA [id number] [address] [place] MCHC (RBC) [Mass/Vol] 31.8 g/dL Normal 30.5-36.0 [facility] Comment on above: Order Comment: Speci men Type: BLOOD SPECIMEN Ordering Facility: [facility] Address: [address] [place] [address] Performed By: #### 2 4321-2 #### [facility] CLIA [id number] [address] [place] MCV (RBC) [Entitic vol] 85.9 fL Normal 80.0-100.0 [facility] Comment on above: Order Comment: Speci men Type: BLOOD SPECIMEN Ordering Facility: [facility] Address: [address] [place] [address] Performed By: #### 2 4321-2 #### [facility] CLIA [id number] [address] [place] Monocytes (Bld) [#/Vol] 0.78 10*3/uL Normal <0.87 [facility] Comment on above: Order Comment: Speci men Type: BLOOD SPECIMEN Ordering Facility: [facility] Address: [address] [place] [address] Performed By: #### 2 1-2 #### [facility] CLIA [id number] [address] [place] Monocytes/100 WBC (Bld) 9.6 % Normal [facility] Comment on above: Order Comment: Speci men Type: BLOOD SPECIMEN Ordering Facility: [facility] Address: [address] [place] [address] Performed By: #### 2 4321-2 #### [facility] CLIA [id number] [address] [place] Neutrophils (Bld) [#/Vol] 5.38 10*3/uL Normal 1.45-7.50 [facility] Comment on above: Order Comment: Speci men Type: BLOOD SPECIMEN Ordering Facility: [facility] Address: [address] [place] [address] Performed By: #### 2 4321-2 #### [facility] CLIA [id number] [address] [place] Neutrophils/100 WBC (Bld) 65.9 % Normal [facility] Comment on above: Order Comment: Speci men Type: BLOOD SPECIMEN Ordering Facility: [facility] Address: [address] [place] [address] Performed By: #### 2 4321-2 #### [facility] CLIA [id number] [address] Nucleated RBC (Bld) [#/Vol] 10*3/uL Normal <0.01 [facility] Comment on above: Order Comment: Speci men Type: BLOOD SPECIMEN Ordering Facility: [facility] Address: [address] [place] [address] Performed By: #### 2 1-2 #### [facility] CLIA [id number] [address] Nucleated RBC/100 WBC (Bld) [Ratio] 0.0 /100 WBC Normal [facility] Comment on above: Order Comment: Speci men Type: BLOOD SPECIMEN Ordering Facility: [facility] Address: [address] [place] [address] Performed By: #### 2 1-2 #### [facility] CLIA [id number] [address] [place] Platelet mean volume (Bld) [Entitic vol] 9.1 fL Normal 9.0-12.7 [facility] Comment on above: Order Comment: Speci men Type: BLOOD SPECIMEN Ordering Facility: [facility] Address: [address] [place] [address] Performed By: #### 2 1-2 #### [facility] CLIA [id number] [address] [place] Platelets (Bld) [#/Vol] 242 10*3/uL Normal 150-400 [facility] Comment on above: Order Comment: Speci men Type: BLOOD SPECIMEN Ordering Facility: [facility] Address: [address] [place] [address] Performed By: #### 2 1-2 #### [facility] CLIA [id number] [address] [facility] RBC (Bld) [#/Vol] 4.25 10*6/uL Normal 3.90-5.20 [facility] Comment on above: Order Comment: Speci men Type: BLOOD SPECIMEN Ordering Facility: [facility] Address: [address] [place] [address] Performed By: #### 2 4321-2 #### [facility] CLIA [id number] [address] [facility] WBC (Bld) [#/Vol] 8.16 10*3/uL Normal 3.70-11.00 [facility] Comment on above: Order Comment: Speck[place] tony Type: BLOOD SPECIMEN Ordering Facility: [facility] Address: [address] [place] [address] Performed By: #### 2 4321-2 #### [facility] CLIA [id number] [address] [facility] Adriana 10-18-2023 [employer] [facility] ([id number] ----- TRENT[place] JACKSON ([id number]) 1970 [facility] Date Time Provider Department [facility] During your visit today, we recorded the following information about you: Tenzin Closet Organizer Ethel Shah 10/18/2023 11:46 AM Signed Returned Sara's call from [facility] regarding [place] - last nurse we spoke to (Bryant), they were to take patient to [facility] and follow up with local ortho md. Called and spoke to Cindi - when order was given to Bryant in regards to giving an antibiotic AND taking to [facility] ED for surgical consult if no improvement - there was no follow through on that end. The [facility] physician did give an antibiotic 09/27/23 - 10/04/23 and nothing was done after that until Cindi saw [place] on 10/15/23 AND sent her to [facility] ED. The ED gave her pain medication and sent her back to the facility. Cindi said [place]on has had some recent labs AND rose mary fax them to us, I did give the fax number to her. The lower incision is red and warm as well. Appointment scheduled for Sunday10/23/23 at 1:15pm w/PA Gadiel [place]. Sending to Dr. May for review Thank you Ethel Dave Closet Organizer [facility] Ethel Shah 10/18/2023 3:03 PM Signed Spoke to Cindi - she is going to [facility] to arrange for transport. She did state that sometimes they can belt picker in 15 minutes but sometimes it can take hours. Cindi does have direct phone # and knows I am in office until 530pm should she need to reach the office, after that to call the main office phone #. Also verified [facility] ED address. Thank you Ethel Dave [place] P[employer] Allergies As of Date: 10/18/2023 Noted Allergy Reaction LATEX 01/18/2011 9 - Itching Comments: Red and dry cracking skin Date Reviewed: 09/05/2023 Reviewed by: Arminda Murillo, CHAYITO - Fully Assessed Reason for Visit: returned [facility] call [Other] Patient Update [1234] Prescriptions as [...] all medications X 4 days per her [id number]-50-4-2017. Problem List As Of Date 10/18/2023 Noted Resolved Abdominal pain, other specified site [R10.9] 10/23/2012 Essential hypertension [I10] 02/20/2017 Pericardial cyst [Q24.8] 02/20/2017 Pericardial effusion [I31.39] 02/20/2017 Depression [F32.A] 02/20/2017 Anxiety [F41.9] 02/20/2017 Rigsparkle (more content not included)... Normal [facility] CONSULTon 10-18-2023 CONSULT HNO ID: [id number] Author: DIYA MAY MD Service: Orthopaedic Surgery [...] HPI: 53 year old female presented to [facility] due to concern for an infection [...] 3 dose (more content not included)... Normal [facility] Comprehensive metabolic 2000 panelon 10-18-2023 Albumin [Mass/Vol] 3.5 g/dL Low 3.9-4.9 [facility] Comment on above: Order Comment: Speci men Type: BLOOD SPECIMEN Ordering Facility: [facility] Address: [address] [place] [address] Performed By: #### 2 4323-8, 10233-6 #### [facility] CLIA [id number] [address] [place] [id number] [place] ALP [Catalytic activity/Vol] 135 U/L High 34-123 [facility] Comment on above: Order Comment: Speci men Type: BLOOD SPECIMEN Ordering Facility: [facility] Address: [address] [place] [address] Performed By: #### 2 8, #### [facility] CLIA [id number] [address] ALT With P-5'-P [Catalytic activity/Vol] Normal [facility] Comment on above: Order Comment: Speci men Type: BLOOD SPECIMEN Ordering Facility: [facility] Address: [address] [place] [address] Result Comment: Unab le to assay due to interference from hemolysis. Suggest reorder as clinically indicated. Performed By: #### 2 4322-8, #### [facility] CLIA [id number] [address] Anion gap [Moles/Vol] 14 mmol/L Normal 9-18 [facility] Comment on above: Order Comment: Speci men Type: BLOOD SPECIMEN Ordering Facility: [facility] Address: [address] [place] [address] Performed By: #### 2 4323-01, #### [facility] CLIA [id number] [address] AST With P-5'-P [Catalytic activity/Vol] Normal [facility] Comment on above: Order Comment: Speci men Type: BLOOD SPECIMEN Ordering Facility: [facility] Address: [address] [place] [address] Result Comment: Unab le to assay due to interference from hemolysis. Suggest reorder as clinically indicated. Performed By: #### 2 4323-01, #### [facility] CLIA [id number] [address] [place] Bilirubin [Mass/Vol] 0.5 mg/dL Normal 0.2-1.3 [facility] Comment on above: Order Comment: Speci men Type: BLOOD SPECIMEN Ordering Facility: [facility] Address: [address] [place] [address] Performed By: #### 2 4323-01, #### [facility] CLIA [id number] 1 [place] [address] [place] Calcium [Mass/Vol] 9.0 mg/dL Normal 8.5-10.2 [facility] Comment on above: Order Comment: Speci men Type: BLOOD SPECIMEN Ordering Facility: [facility] Address: [address] [place] [address] Performed By: #### 2 4323-01, #### [facility] CLIA [id number] [address] [place] [address] [place] Chloride [Moles/Vol] 98 mmol/L Normal 97-105 [facility] Comment on above: Order Comment: Speci men Type: BLOOD SPECIMEN Ordering Facility: [facility] Address: [address] [place] [address] Performed By: #### 2 4323-01, #### [facility] CLIA [id number] [address] [place] [address] [place] CO2 [Moles/Vol] 24 mmol/L Normal 22-30 [facility] Comment on above: Order Comment: Speci men Type: BLOOD SPECIMEN Ordering Facility: [facility] Address: [address] [place] [address] Performed By: #### 2 4323-01, #### [facility] CLIA [id number] [address] [place] [address] [place] Creatinine [Mass/Vol] 1.61 mg/dL High 0.58-0.96 [facility] Comment on above: Order Comment: Speci men Type: BLOOD SPECIMEN Ordering Facility: [facility] Address: [address] [place] [address] Performed By: #### 2 4323-01, #### [facility] CLIA [id number] [address] [place] [address] [place] Creatinine and Glomerular filtration rate.predicted panel (S/P/Bld) 38 mL/min/1.73m??? Low >=60 [facility] Comment on above: Order Comment: Radha tony Type: BLOOD SPECIMEN Ordering Facility: [facility] Address: [address] [place] [address] Result Comment: Crissy mated Glomerular Filtration Rate [...] actual GFR. Performed By: #### 2 4323-8, 51512-4 #### [facility] CLIA [id number] [address] [place] [address] [place] Glucose [Mass/Vol] 160 mg/dL High 74-99 [facility] Comment on above: Order Comment: Radha tony Type: BLOOD SPECIMEN Ordering Facility: [facility] Address: [address] [place] [address] Result Comment: The [place] Diabetes Association (ADA) provides guidance for cutoff [...] Standards of Medical Care in Diabetes 2016, [place] Diabetes Association. Diabetes Care. 2016.39(Suppl 1). Performed By: #### 2 4323-8, 57425-8 #### [facility] CLIA [id number] 1 [place] [address] [place] Potassium [Moles/Vol] Normal [facility] Comment on above: Order Comment: Radha tony Type: BLOOD SPECIMEN Ordering Facility: [facility] Address: [address] [place] [address] Result Comment: Unab le to assay due to interference from hemolysis. Suggest reorder as clinically indicated. Performed By: #### 2 4322-8, #### [facility] CLIA [id number] [address] STATES OF [facility] Protein [Mass/Vol] 6.9 g/dL Normal 6.3-8.0 [facility] Comment on above: Order Comment: Speci men Type: BLOOD SPECIMEN Ordering Facility: [facility] Address: [address] [place] [address] Performed By: #### 2 8, #### [facility] CLIA [id number] [address] Sodium [Moles/Vol] 136 mmol/L Normal 136-144 [facility] Comment on above: Order Comment: Speci men Type: BLOOD SPECIMEN Ordering Facility: [facility] Address: [address] [place] [address] Performed By: #### 2 4323-01, #### [facility] CLIA [id number] [address] STATES [facility] Urea nitrogen [Mass/Vol] 51 mg/dL High 7-21 [facility] Comment on above: Order Comment: Speci men Type: BLOOD SPECIMEN Ordering Facility: [facility] Address: [address] [place] [address] Performed By: #### 2 4323-01, #### [facility] CLIA [id number] [address] [place] ED NOTEon 10-18-2023 ED NOTE HNO ID: [id number] Author: JIMY CHING RN Service: Emergency Medicine Author Type: Registered Nurse Type: ED Notes Filed: 10/18/2023 19:40 Note Text: Xray at bedside Normal [facility] ED NOTE HNO ID: [id number] Author: ERVIN RENO RN Service: Emergency Medicine Author Type: Registered Nurse Type: ED Notes Filed: 10/18/2023 18:56 Note Text: XR notified pt is ready for ordered imaging Normal [facility] ED NOTE HNO ID: [id number] Author: ERVIN RENO RN Service: Emergency Medicine Author Type: Registered Nurse Type: ED Notes Filed: 10/18/2023 18:32 Note Text: Patient's identity verified by patient stating name, Patient's identity verified by patient stating date, Patient's identity verified by hospital ID jonah. Patient placed on manager english, patient placed on non-invasive blood pressure monitor, patient placed on continuous pulse oximetry. Alarms set and on, patient tolerating monitoring. Normal [facility] ED NOTE HNO ID: [id number] Author: GARRISON VAUGHAN, CHAYITO Service: ? Author Type: Registered Nurse Type: ED Notes Filed: 10/18/2023 18:24 Note Text: Bed: [facility] Expected date: Expected time: Means of arrival: Comments: ONLY Normal [facility] ED PROV NOTEon 10-18-2023 ED PROV NOTE HNO ID: [id number] Author: MARIA E PORTILLO MD Service: Emergency [...] had any recent fevers chills in the chcf denies any other concerns. The patient denies [...] details MARIA E PORTILLO 10/19/23 0123 Normal [facility] ED PROV NOTE HNO ID: [id number] Author: MARIA E PORTILLO MD Service: Emergency [...] Hip Pain: Pt arrives via EMS from [facility] for c/o R hip pain. Pt had a fall on and was transferred to [facility] for surgery from [place]. Pt has been having pain since the surgery, worsening recently. Pt endorses ambulation with walker in PT/ OT. Pt AANDO3. 53-year-old female presenting from [facility] for complaint of right hip pain. Patient [...] Normal range (more content not included)... Normal [facility] HISTORY PHYSICALon 05-16-202 4 HISTORY PHYSICAL HNO ID: [id number] Author: JUACNARLOS GRAHAM APRN.CNP Service: Hospital Medicine Author Type: Nurse Practitioner Type: H&P Filed: 10/19/2023 01:52 Note Text: RAPID OBSERVATION UNIT HISTORY AND PHYSICAL EXAM SERVICE DATE: 10/19/2023 SERVICE TIME: 0152 Primary Care Physician: Nathaly Leonard [facility] NIGHT AND WEEKEND COVERAGE: Unit ext: [phone] Pager [phone] Subjective CHIEF COMPLAINT: Right hip pain HPI: [...] obtained by others. Upon arrival to the [facility], patient is complaining of right lateral hip [...] 1 Bottle, Rfl: 2 insulin needles, DISPOSABLE, (LinebackerFINE PENTIPS) 31 gauge x 10/17 ndle, Use with insulin in (more content not included)... Normal [facility] Magnesium SerPl-mCncon 10-17 Magnesium [Mass/Vol] 2.2 mg/dL Normal 1.7-2.3 [facility] Comment on above: Order Comment: Speci men Type: BLOOD SPECIMEN Ordering Facility: [facility] Address: [address] [place] [address] Performed By: #### 2 4323-8, 08443-2 #### [facility] CLIA [id number] [address] POTASSIUMon 10-18-2023 Potassium [Moles/Vol] 4.0 mmol/L Normal 3.7-5.1 [facility] Comment on above: Order Comment: Speci men Type: BLOOD SPECIMEN Ordering Facility: [facility] Address: [address] [place] [address] Performed By: #### 5 8410-2 #### [facility] CLIA [id number] [address] [place] XR HIP 3V [...] Hardware is intact. Vascular calcifications are present. Life Sciences Director: GEORGE Transcribe Date/Time: Oct 18 2023 8:09P Dictated by : CLOVER LINOTN MD This examination was interpreted and the report reviewed and electronically signed by: CLOVER LINTON MD on Oct 18 2023 8:13PM EST [id number] Normal [facility] Basophil percentageOrdered B y: Kaylie Trujillo on 10-12-2023 Chloride [Moles/Vol] 104 mmol/L 98-107 [facility] Glucose [Mass/Vol] 112 mg/dL 74-106 [facility] Comment on above: Fasting Glucose resu lt from 100 to 125 mg/dL suggests IMPAIRED HOMEOSTASIS per A.D.A. criteria. Potassium [Moles/Vol] 4.5 mmol/L 3.5-5.1 [facility] Sodium [Moles/Vol] 138 mmol/L 136-145 [facility] Laboratory - Chemistry and C hemistry - challengeOrdered By: Kaylie Trujillo on 10-12-2023 CO2 [Moles/Vol] 31.0 mmol/L 21.0-32.0 [facility] Urea nitrogen/Creatinine [Mass ratio] 34.1 mg/mg 10-20 [facility] No Panel InformationOrdered By: Kaylie Trujillo on 10-12-2023 Estimated GFR (MDRD) Amer 112 mL/min >60 [facility] Comment on above: GFR Calc Estimated GFR (MDRD) Non-Af Amer 93 mL/min >60 [facility] Comment on above: Non- GFR Calc Serum or plasma calcium xiomara urement (mass/volume)Ordered By: Kaylie Trujillo on 10-12-2023 Calcium [Mass/Vol] 8.7 mg/dL 8.5-10.1 [facility] Serum or plasma creatinine m easurement (mass/volume)Ordered By: Kaylie Trujillo on 10-12-2023 Creatinine [Mass/Vol] 0.70 mg/dL 0.55-1.02 [facility] Comment on above: The validity of the calculated GFR & GFRAA in patients over 70 years has not been determined. Clinical correlation is essential. Serum or plasma urea nitroge n measurement (mass/volume)Ordered By: Kaylie Trujillo on 10-12-2023 Urea nitrogen [Mass/Vol] 24 mg/dL 7-18 [facility] Thin prep Papanicolaou smear with manual screeningOrdered By: Kaylie Trujillo on 10-12-2023 Thin prep Papanicolaou smear with manual screening 3 5-15 [facility] CNPNon 10-09-2023 CNPN Telephone (AGPOB1) ----- TRENTON JACKSON ([id number]) 1970 [facility] Date Time Provider Department 10/09/23 DIYA MAY [id number] During your visit today, we recorded the following information about you: Tenzin Closet Organizer Ethel Shah 10/09/2023 10:51 AM Signed ----- [...] if other than patient: Bryant @ [facility] Return call to if other than patient: same Best contact number: [phone] Thank you, Pauly Heredia October 09, 2023 9:46 AM Giac[place] AlyssatEhel Vikram 10/17/2023 4:44 PM Signed Left 2 [...] all medications X 4 days per her [id number]-60-7-2017. Problem List As Of Date 10/09/2023 Noted [...] diabetes mellitus (more content not included)... Normal [facility] Absolute lymphocyte countOrd ered By: Kaylie Trujillo on 10-08-2023 Lymphocytes Auto (Unsp spec) [#/Vol] 1.68 10*3/uL 0.83-4.51 [facility] Automated lymphocyte count a s percentage of total leukocytesOrdered By: Kaylie Trujillo on 10-08-2023 Lymphocytes/100 WBC Auto (Unsp spec) 19.2 % 19-41 [facility] Basophil percentageOrdered B y: Kaylie Trujillo on 10-08-2023 Basophils/100 WBC (Bld) 0.7 % 0-1 [facility] Chloride [Moles/Vol] 108 mmol/L 98-107 [facility] Eosinophils/100 WBC (Bld) 1.4 % 0-5 [facility] Glucose [Mass/Vol] 67 mg/dL 74-106 [facility] Hemoglobin (Bld) [Mass/Vol] 12.1 g/dL 12.0-15.0 [facility] Monocytes/100 WBC (Bld) 7.8 % 0-10 [facility] Neutrophils (Bld) [#/Vol] 6.2 10*3/uL 2.0-7.7 [facility] Neutrophils/100 WBC (Bld) 70.6 % 47-70 [facility] Potassium [Moles/Vol] 5.6 mmol/L 3.5-5.1 [facility] Sodium [Moles/Vol] 139 mmol/L 136-145 [facility] WBC (Bld) [#/Vol] 8.7 10*3/uL 4.4-11.0 [facility] Determination of erythrocyte mean corpuscular volume (MCV)Ordered By: Kaylie Trujillo on 10-08-2023 MCV (RBC) [Entitic vol] 86.7 fL 81-99 [facility] Erythrocyte distribution wid th ratioOrdered By: Kaylie Trujillo on 10-08-2023 Erythrocyte distribution width (RBC) [Ratio] 16.6 % 11.6-14.6 [facility] Erythrocyte distribution wid th standard deviationOrdered By: Kaylieoskar Trujillo on 10-08-2023 Erythrocyte distribution width (RBC) [Entitic vol] 52.3 fL 35.1-43.9 [facility] Hematocrit Auto (Bld) [Volum e fraction]Ordered By: Kaylie Trujilol on 10-08-2023 Hematocrit (Bld) [Volume fraction] 39.6 % 37-47 [facility] Immature granulocytes/100 WB C Auto (Bld)Ordered By: Kaylieoskar Trujillo on 10-08-2023 Immature granulocytes/100 WBC (Bld) 0.300 % 0.0-0.9 [facility] Comment on above: IG% - Immature Granu locytes (promyelocytes, myelocytes and metamyelocytes) > 1% indicates that a LEFT SHIFT is Present. Laboratory - Chemistry and C hemistry - challengeOrdered By: Kaylieoskar Trujillo on 10-08-2023 CO2 [Moles/Vol] 27.0 mmol/L 21.0-32.0 [facility] Magnesium [Mass/Vol] 2.5 mg/dL 1.6-2.6 [facility] Urea nitrogen/Creatinine [Mass ratio] 27.6 mg/mg 10-20 [facility] Laboratory - Hematology and Cell countsOrdered By: Kaylie Trujillo on 10-08-2023 MCH (RBC) [Entitic mass] 26.5 pg 27.0-32.0 [facility] MCHC (RBC) [Mass/Vol] 30.6 g/dL 32-36 [facility] Nucleated RBC/100 WBC (Bld) [Ratio] 0 % 0-5 [facility] Platelet mean volume (Bld) [Entitic vol] 9.3 fL 6.2-12.0 [facility] Platelets (Bld) [#/Vol] 243 10*3/uL 150-450 [facility] No Panel InformationOrdered By: Kaylie Trujillo on 10-08-2023 Estimated GFR (MDRD) Amer 102 mL/min >60 [facility] Comment on above: GFR Calc Estimated GFR (MDRD) Non-Af Amer 85 mL/min >60 [facility] Comment on above: Non- GFR Calc RBC Auto (Bld) [#/Vol]Ordere d By: Kaylie Trujillo on 10-08-2023 RBC (Bld) [#/Vol] 4.57 10*6/uL 4.2-5.4 [facility] Serum or plasma calcium xiomara urement (mass/volume)Ordered By: Kaylie Trujillo on 10-08-2023 Calcium [Mass/Vol] 9.3 mg/dL 8.5-10.1 [facility] Serum or plasma creatinine m easurement (mass/volume)Ordered By: Kaylie Trujillo on 10-08-2023 Creatinine [Mass/Vol] 0.76 mg/dL 0.55-1.02 [facility] Comment on above: The validity of the calculated GFR & GFRAA in patients over 70 years has not been determined. Clinical correlation is essential. Serum or plasma urea nitroge n measurement (mass/volume)Ordered By: Kaylie Trujillo on 10-08-2023 Urea nitrogen [Mass/Vol] 21 mg/dL 7-18 [facility] Thin prep Papanicolaou smear with manual screeningOrdered By: Kaylie Trujillo on 10-08-2023 Thin prep Papanicolaou smear with manual screening 4 5-15 [facility] CNPNon 10-04-2023 [place] Telephone (AGPOB1) ----- TRENTON JACKSON ([id number]) 1970 [place] Date Time Provider Department 10/04/23 DIYA MAY During your visit today, we recorded the following information about you: Tenzin Closet Organizer Ethel Shah 10/04/2023 2:40 PM Signed ----- Message from Mealny Simon sent at 10/03/2023 1:23 PM EDT [...] which facility was the patient seen at: [facility] Was an appointment scheduled (Y/N): no-unable to schedule per tool Person calling if other than patient: Bryant([facility]) Return call to if other than patient: Bryant Best contact number: [phone] Thank you, Melany Simon October 03, 2023 1:23 PM Arletteca Closet Organizer Ethel Shah 10/08/2023 3:47 PM Signed Left message for Bryant to get an update on [place]. Last message to her was instructions from Dr. May regarding giving her antibiotics, taking her to [place] emergency department if no improvements for a surgical consult. Thank you Ethel Dave Closet [employer] Allergies As of Date: 10/04/2023 Noted [...] all medications X 4 days per her nxfmga-19-2-2017. Problem List As Of Date 10/04/2023 Noted Resolved Abdominal pain, other specified site [R10.9] 10/23/2012 Essential hypertension [I10] 02/20/2017 Pericardial cyst [Q24.8] 02/20/2017 Pericardial effusion [I31.39] 02/20/2017 Depression [F32.A] 02/20/2017 Anxiety [F41.9] 02/20/2017 Right-sided low back pain with right-sided scia*02/20/2017 Type 2 diabetes mellitus with complication, w (more content not included)... Normal [facility] CNPNon 10-02-2023 [facility] Telephone (AGPOB1) ----- TRENTON JACKSON ([id number]) 1970 [facility] Date Time Provider Department 10/02/23 DIYA MAY [facility] During your visit today, we recorded the following information about you: Tenzin Closet Organizer Ethel Shah 10/02/2023 12:11 PM Signed ----- [...] Person calling if other than patient: [facility] Return call to if other than patient: bryant Best contact number: [phone] Thank you, Agata Das October 02, 2023 11:16 AM Tenzin [place] Ethel Shah 10/03/2023 11:29 AM Signed Left message for Bryant - Dr. May does not want to schedule a follow up appointment at this time. He would like an update of her wound since she has started the antibiotic. If it has not changed, gotten better or is worse - he would like her taken to the [facility] for a surgical consult. Left my direct phone number so Bryant can call to let me know status. Thank you Ethel Dave Clos[employer] Allergies As of Date: 10/02/2023 Noted Allergy Reaction LATEX 01/18/2011 9 - Itching Comments: Red and dry cracking skin Date Reviewed: 09/05/2023 Reviewed by: Arminda Murillo RN - Fully Assessed Reason for Visit: Contact Center Call [[id number]] Patient Update [1234] PHYSICIAN INSTRUCTIONS [Other] Prescriptions [...] all medications X 4 days per her linmia-03-1-2017. Problem List As Of Date 10/02/2023 Noted Resolved Abdominal pain, other specified site [R10.9] 10/23/2012 Essential hypertension [I10] 02/20/2017 Pericardial cyst [Q24.8] 02/20/2017 Pericardial effusion [I31.39] 02/20 (more content not included)... Normal [facility] Absolute lymphocyte countOrd ered By: Kaylie Trujillo on 10-01-2023 Lymphocytes Auto (Unsp spec) [#/Vol] 1.59 10*3/uL 0.83-4.51 [facility] Automated lymphocyte count a s percentage of total leukocytesOrdered By: Kaylie Trjuillo on 10-01-2023 Lymphocytes/100 WBC Auto (Unsp spec) 24.4 % 19-41 [facility] Basophil percentageOrdered B y: Kaylie Trujillo on 10-01-2023 Basophils/100 WBC (Bld) 1.1 % 0-1 [facility] Chloride [Moles/Vol] 108 mmol/L 98-107 [facility] Eosinophils/100 WBC (Bld) 2.6 % 0-5 [facility] Glucose [Mass/Vol] 123 mg/dL 74-106 [facility] Comment on above: Fasting Glucose resu lt from 100 to 125 mg/dL suggests IMPAIRED HOMEOSTASIS per A.D.A. criteria. Hemoglobin (Bld) [Mass/Vol] 11.7 g/dL 12.0-15.0 [facility] Monocytes/100 WBC (Bld) 8.8 % 0-10 [facility] Neutrophils (Bld) [#/Vol] 4.1 10*3/uL 2.0-7.7 [facility] Neutrophils/100 WBC (Bld) 62.6 % 47-70 [facility] Potassium [Moles/Vol] 5.4 mmol/L 3.5-5.1 [facility] Sodium [Moles/Vol] 138 mmol/L 136-145 [facility] WBC (Bld) [#/Vol] 6.5 10*3/uL 4.4-11.0 [facility] CNPNon 10-01-2023 CNPN Telephone (AGPOB1) ----- ROSEMARYTRENTON CALHOUN ([id number]) 1970 [place] Date Time Provider Department [...] all medications X 4 days per her csmtsm-16-8-2017. Problem List As Of Date 10/01/2023 Noted [...] Frailty [ (more content not included)... Normal [facility] Determination of erythrocyte mean corpuscular volume (MCV)Ordered By: Kaylie Trujillo on 10-01-2023 MCV (RBC) [Entitic vol] 86.3 fL 81-99 [facility] Erythrocyte distribution wid th ratioOrdered By: Kaylie Trujillo on 10-01-2023 Erythrocyte distribution width (RBC) [Ratio] 15.9 % 11.6-14.6 [facility] Erythrocyte distribution wid th standard deviationOrdered By: Kaylie Trujillo on 10-01-2023 Erythrocyte distribution width (RBC) [Entitic vol] 50.4 fL 35.1-43.9 [facility] Hematocrit Auto (Bld) [Volum e fraction]Ordered By: Kaylie Trujillo on 10-01-2023 Hematocrit (Bld) [Volume fraction] 37.8 % 37-47 [facility] Immature granulocytes/100 WB C Auto (Bld)Ordered By: Kaylie Trujillo on 10-01-2023 Immature granulocytes/100 WBC (Bld) 0.500 % 0.0-0.9 [facility] Comment on above: IG% - Immature Granu locytes (promyelocytes, myelocytes and metamyelocytes) > 1% indicates that a LEFT SHIFT is Present. Laboratory - Chemistry and C hemistry - challengeOrdered By: Kaylieoskar Trujillo on 10-01-2023 CO2 [Moles/Vol] 27.0 mmol/L 21.0-32.0 [facility] Magnesium [Mass/Vol] 2.6 mg/dL 1.6-2.6 [facility] Urea nitrogen/Creatinine [Mass ratio] 24.1 mg/mg 10-20 [facility] Laboratory - Hematology and Cell countsOrdered By: Kaylie Trujillo on 10-01-2023 MCH (RBC) [Entitic mass] 26.7 pg 27.0-32.0 [facility] MCHC (RBC) [Mass/Vol] 31.0 g/dL 32-36 [facility] Nucleated RBC/100 WBC (Bld) [Ratio] 0 % 0-5 [facility] Platelet mean volume (Bld) [Entitic vol] 9.1 fL 6.2-12.0 [facility] Platelets (Bld) [#/Vol] 218 10*3/uL 150-450 [facility] No Panel InformationOrdered By: Kaylie Trujillo on 10-01-2023 C-Reactive Protein Extended Range 10.40 mg/L 0.0-3.0 [facility] Comment on above: C-Reactive Protein ( CRP) provides useful information for thediagnosis, therapy and monitoring of inflammatory processesand associated diseases. For the evaluation of Relative Riskfor Cardiovascular Disease, a High Sensitivity CRP (HSCRP)should be ordered. Estimated GFR (MDRD) Amer 83 mL/min >60 [facility] Comment on above: GFR Calc Estimated GFR (MDRD) Non-Af Amer 69 mL/min >60 [facility] Comment on above: Non- GFR Calc RBC Auto (Bld) [#/Vol]Ordere d By: Kaylie Trujillo on 10-01-2023 RBC (Bld) [#/Vol] 4.38 10*6/uL 4.2-5.4 [facility] Serum or plasma calcium xiomara urement (mass/volume)Ordered By: Kaylie Trujillo on 10-01-2023 Calcium [Mass/Vol] 9.0 mg/dL 8.5-10.1 [facility] Serum or plasma creatinine m easurement (mass/volume)Ordered By: Kaylie Trujillo on 10-01-2023 Creatinine [Mass/Vol] 0.91 mg/dL 0.55-1.02 [facility] Comment on above: The validity of the calculated GFR & GFRAA in patients over 70 years has not been determined. Clinical correlation is essential. Serum or plasma trough vanco mycin levelOrdered By: Kaylie Trujillo on 10-01-2023 Vancomycin trough [Mass/Vol] 24.8 ug/mL 5.0-15.0 [facility] Comment on above: VANCOMYCIN STANDARED DRUG THERAPY TROUGH LEVEL: 5.0 - 15.0 mg/L VANCOMYCIN HIGH INTENSITY THERAPY TROUGH LEVEL: 15.0 - 20.0 mg/L High Intensity therapy recommended for serious lifethreatening infections include:- Vxfssijubm-Vvujdxemecyu-Ujotzdwyx (Ventilator/Healtcare Associated)-Sepsis PLEASE CONTACT PHARMACY SERVICES (#[id number]) FOR INTERPRETATIONOF RESULTS. Serum or plasma urea nitroge n measurement (mass/volume)Ordered By: Kaylie Trujillo on 10-01-2023 Urea nitrogen [Mass/Vol] 22 mg/dL 7-18 [facility] Thin prep Papanicolaou smear with manual screeningOrdered By: Kaylie Trujillo on 10-01-2023 Thin prep Papanicolaou smear with manual screening 3 5-15 [facility] Serum or plasma trough vanco mycin levelOrdered By: Kaylie Trujillo on 09-29-2023 Vancomycin trough [Mass/Vol] 17.3 ug/mL 5.0-15.0 [facility] Comment on above: VANCOMYCIN STANDARED DRUG THERAPY TROUGH LEVEL: 5.0 - 15.0 mg/L VANCOMYCIN HIGH INTENSITY THERAPY TROUGH LEVEL: 15.0 - 20.0 mg/L High Intensity therapy recommended for serious lifethreatening infections include:- Uosabhkmqd-Pfhimapsqrjt-Xsvelukqv (Ventilator/Healtcare Associated)-Sepsis PLEASE CONTACT PHARMACY SERVICES (#[id number]) FOR INTERPRETATIONOF RESULTS. Adriana 09-27-2023 CNPN Telephone (AGPOB1) ----- TRENTON JACKSON ([id number]) 1970 [facility] Date Time Provider Department 09/27/23 DIYA MAY AGPOB1 During your visit today, we recorded the following information about you: Ethel Alonso 09/27/2023 3:54 PM Signed Received message from Stephania at [facility] stating Trenton is forming an [...] a local orthopedic since she is in [place]. Dr. Posadas - [phone] He would like if the facility could send a picture of the incision and to start her on Doxycycline 100mg BID. Called Stephania with instructions and Dr. Posadas' phone number. Thank you Ethel Dave Clos[employer] Allergies As of Date: 09/27/2023 Noted [...] all medications X 4 days per her [id number]. Problem List As Of Date 09/27/2023 Noted [...] Chronic systo (more content not included)... Normal [facility] Absolute lymphocyte countOrd ered By: Kaylie Trujillo on 09-24-2023 Lymphocytes Auto (Unsp spec) [#/Vol] 1.63 10*3/uL 0.83-4.51 [facility] Automated lymphocyte count a s percentage of total leukocytesOrdered By: Kaylie Trujillo on 09-24-2023 Lymphocytes/100 WBC Auto (Unsp spec) 21.3 % 19-41 [facility] Basophil percentageOrdered B y: Kaylie Trujillo on 09-24-2023 Basophils/100 WBC (Bld) 1.0 % 0-1 [facility] Chloride [Moles/Vol] 99 mmol/L 98-107 [facility] Eosinophils/100 WBC (Bld) 2.1 % 0-5 [facility] Glucose [Mass/Vol] 166 mg/dL 74-106 [facility] Comment on above: Fasting Glucose resu lt greater than or equal to 126 mg/dL suggests DIABETES MELLITUS per A.D.A. criteria. Hemoglobin (Bld) [Mass/Vol] 11.8 g/dL 12.0-15.0 [facility] Monocytes/100 WBC (Bld) 9.3 % 0-10 [facility] Neutrophils (Bld) [#/Vol] 5.1 10*3/uL 2.0-7.7 [facility] Neutrophils/100 WBC (Bld) 65.9 % 47-70 [facility] Potassium [Moles/Vol] 4.8 mmol/L 3.5-5.1 [facility] Sodium [Moles/Vol] 134 mmol/L 136-145 [facility] WBC (Bld) [#/Vol] 7.7 10*3/uL 4.4-11.0 [facility] Determination of erythrocyte mean corpuscular volume (MCV)Ordered By: Kaylie Trujillo on 09-24-2023 MCV (RBC) [Entitic vol] 84.3 fL 81-99 [facility] Erythrocyte distribution wid th ratioOrdered By: Kaylie Trujillo on 09-24-2023 Erythrocyte distribution width (RBC) [Ratio] 15.5 % 11.6-14.6 [facility] Erythrocyte distribution wid th standard deviationOrdered By: Kaylie Trujillo on 09-24-2023 Erythrocyte distribution width (RBC) [Entitic vol] 46.9 fL 35.1-43.9 [facility] Hematocrit Auto (Bld) [Volum e fraction]Ordered By: Kaylie Trujillo on 09-24-2023 Hematocrit (Bld) [Volume fraction] 37.7 % 37-47 [facility] Immature granulocytes/100 WB C Auto (Bld)Ordered By: Kaylie Trujillo on 09-24-2023 Immature granulocytes/100 WBC (Bld) 0.400 % 0.0-0.9 [facility] Comment on above: IG% - Immature Granu locytes (promyelocytes, myelocytes and metamyelocytes) > 1% indicates that a LEFT SHIFT is Present. Laboratory - Chemistry and C hemistry - challengeOrdered By: Kaylie Trujillo on 09-24-2023 CO2 [Moles/Vol] 29.0 mmol/L 21.0-32.0 [facility] Magnesium [Mass/Vol] 2.8 mg/dL 1.6-2.6 [facility] Urea nitrogen/Creatinine [Mass ratio] 38.8 mg/mg 10-20 [facility] Laboratory - Hematology and Cell countsOrdered By: Kaylie Trujillo on 09-24-2023 MCH (RBC) [Entitic mass] 26.4 pg 27.0-32.0 [facility] MCHC (RBC) [Mass/Vol] 31.3 g/dL 32-36 [facility] Nucleated RBC/100 WBC (Bld) [Ratio] 0 % 0-5 [facility] Platelet mean volume (Bld) [Entitic vol] 9.4 fL 6.2-12.0 [facility] Platelets (Bld) [#/Vol] 316 10*3/uL 150-450 [facility] No Panel InformationOrdered By: Kaylie Trujillo on 09-24-2023 Estimated GFR (MDRD) Amer 82 mL/min >60 [facility] Comment on above: GFR Calc Estimated GFR (MDRD) Non-Af Amer 67 mL/min >60 [facility] Comment on above: Non- GFR Calc RBC Auto (Bld) [#/Vol]Ordere d By: Kaylie Trujillo on 09-24-2023 RBC (Bld) [#/Vol] 4.47 10*6/uL 4.2-5.4 [facility] Serum or plasma calcium xiomara urement (mass/volume)Ordered By: Kaylie Trujillo on 09-24-2023 Calcium [Mass/Vol] 8.8 mg/dL 8.5-10.1 [facility] Serum or plasma creatinine m easurement (mass/volume)Ordered By: Kaylie Trujillo on 09-24-2023 Creatinine [Mass/Vol] 0.93 mg/dL 0.55-1.02 [facility] Comment on above: The validity of the calculated GFR & GFRAA in patients over 70 years has not been determined. Clinical correlation is essential. Serum or plasma thyroid stim ulating hormone (TSH) measurement (units/volume)Ordered By: Kaylie Trujillo on 09-24-2023 TSH Qn 6.61 uIU/mL 0.358-3.74 [facility] Serum or plasma urea nitroge n measurement (mass/volume)Ordered By: Kaylie Trujillo on 09-24-2023 Urea nitrogen [Mass/Vol] 36 mg/dL 7-18 [facility] Thin prep Papanicolaou smear with manual screeningOrdered By: Kaylie Trujillo on 09-24-2023 Thin prep Papanicolaou smear with manual screening 6 5-15 [facility] Absolute lymphocyte countOrd ered By: Kaylie Trujillo on 09-17-2023 Lymphocytes Auto (Unsp spec) [#/Vol] 1.47 10*3/uL 0.83-4.51 [facility] Automated lymphocyte count a s percentage of total leukocytesOrdered By: Kaylie Trujillo on 09-17-2023 Lymphocytes/100 WBC Auto (Unsp spec) 13.5 % 19-41 [facility] Basophil percentageOrdered B y: Kaylie Trujillo on 09-17-2023 Basophils/100 WBC (Bld) 0.9 % 0-1 [facility] Chloride [Moles/Vol] 96 mmol/L 98-107 [facility] Eosinophils/100 WBC (Bld) 1.3 % 0-5 [facility] Glucose [Mass/Vol] 134 mg/dL 74-106 [facility] Comment on above: Fasting Glucose resu lt greater than or equal to 126 mg/dL suggests DIABETES MELLITUS per A.D.A. criteria. Hemoglobin (Bld) [Mass/Vol] 12.8 g/dL 12.0-15.0 [facility] Monocytes/100 WBC (Bld) 5.7 % 0-10 [facility] Neutrophils (Bld) [#/Vol] 8.5 10*3/uL 2.0-7.7 [facility] Neutrophils/100 WBC (Bld) 78.0 % 47-70 [facility] Potassium [Moles/Vol] 4.5 mmol/L 3.5-5.1 [facility] Sodium [Moles/Vol] 133 mmol/L 136-145 [facility] WBC (Bld) [#/Vol] 10.9 10*3/uL 4.4-11.0 [facility] Determination of erythrocyte mean corpuscular volume (MCV)Ordered By: Kaylie Trujillo on 09-17-2023 MCV (RBC) [Entitic vol] 86.0 fL 81-99 [place] Erythrocyte distribution wid th ratioOrdered By: Kaylie Trujillo on 09-17-2023 Erythrocyte distribution width (RBC) [Ratio] 15.2 % 11.6-14.6 [facility] Erythrocyte distribution wid th standard deviationOrdered By: Kaylie Trujillo on 09-17-2023 Erythrocyte distribution width (RBC) [Entitic vol] 46.5 fL 35.1-43.9 [facility] Hematocrit Auto (Bld) [Volum e fraction]Ordered By: Kaylie Trujillo on 09-17-2023 Hematocrit (Bld) [Volume fraction] 42.9 % 37-47 [facility] Immature granulocytes/100 WB C Auto (Bld)Ordered By: Kaylie Trujillo on 09-17-2023 Immature granulocytes/100 WBC (Bld) 0.600 % 0.0-0.9 [facility] Comment on above: IG% - Immature Granu locytes (promyelocytes, myelocytes and metamyelocytes) > 1% indicates that a LEFT SHIFT is Present. Laboratory - Chemistry and C hemistry - challengeOrdered By: Kaylie Trujillo on 09-17-2023 CO2 [Moles/Vol] 35.0 mmol/L 21.0-32.0 [facility] Magnesium [Mass/Vol] 2.9 mg/dL 1.6-2.6 [facility] Urea nitrogen/Creatinine [Mass ratio] 26.9 mg/mg 10-20 [facility] Laboratory - Hematology and Cell countsOrdered By: Kaylie Trujillo on 09-17-2023 MCH (RBC) [Entitic mass] 25.7 pg 27.0-32.0 [facility] MCHC (RBC) [Mass/Vol] 29.8 g/dL 32-36 [facility] Nucleated RBC/100 WBC (Bld) [Ratio] 0 % 0-5 [facility] Platelet mean volume (Bld) [Entitic vol] 9.6 fL 6.2-12.0 [facility] Platelets (Bld) [#/Vol] 399 10*3/uL 150-450 [facility] No Panel InformationOrdered By: Kaylie Trujillo on 09-17-2023 Estimated GFR (MDRD) Amer 61 mL/min >60 [facility] Comment on above: GFR Calc Estimated GFR (MDRD) Non-Af Amer 51 mL/min >60 [facility] Comment on above: Non- GFR Calc RBC Auto (Bld) [#/Vol]Ordere d By: Kaylie Trujillo on 09-17-2023 RBC (Bld) [#/Vol] 4.99 10*6/uL 4.2-5.4 [facility] Serum or plasma calcium xiomara urement (mass/volume)Ordered By: Kaylie Trujillo on 09-17-2023 Calcium [Mass/Vol] 9.2 mg/dL 8.5-10.1 [facility] Serum or plasma creatinine m easurement (mass/volume)Ordered By: Kaylie Trujillo on 09-17-2023 Creatinine [Mass/Vol] 1.19 mg/dL 0.55-1.02 [facility] Comment on above: The validity of the calculated GFR & GFRAA in patients over 70 years has not been determined. Clinical correlation is essential. Serum or plasma urea nitroge n measurement (mass/volume)Ordered By: Kaylie Trujillo on 09-17-2023 Urea nitrogen [Mass/Vol] 32 mg/dL 7-18 [facility] Thin prep Papanicolaou smear with manual screeningOrdered By: Kaylie Trujillo on 09-17-2023 Thin prep Papanicolaou smear with manual screening 2 - [facility] CNPNon 09-12-2023 CNPN Telephone (AGPOB1) ----- TRENTON JACKSON ([id number]) 1970 [facility] Date Time Provider Department 09/12/23 DIYA MAY [facility] During your visit today, we recorded the following information about you: Tenzin Mapleton Ethel Shah 09/12/2023 9:24 AM Signed ----- Message from Evelyne Madsen sent at 09/11/2023 2:07 PM EDT ----- Regarding: [id number] follow up post op- hip fracture Subject [...] which facility was the patient seen at: [facility] Was an appointment scheduled (Y/N): N/A Person calling if other than patient: REHAB [facility] Return call to if other than patient: REHAB Best contact number: [phone] Thank you, Evelyne Tena September 11, 2023 2:07 PM Tenzin Mapleton Alyssa, Ethel J 09/14/2023 2:38 PM Signed Left a message for Nurse Mgr Bryant Ruiz at the rehab facility ([phone]) that we do not need to schedule an appointment at this time but we would like to have a disc with an x-ray of Trenton's pelvis for review 09/17/23. Thank you Ethel Dave Closet [employer] Allergies As of Date: 09/12/2023 Noted [...] all medications X 4 days per her [id number]. Problem List As Of Date 09/12/2023 Noted Resolved Abdominal pain, other specified site [R10.9] 10/23/2012 Essential hypertension [I10] 02/20/2017 Pericardial cyst [Q24.8] 02/20/2017 Pericardial effusion [I31.39] 02/20/2017 Depression [F32.A] 02/20/2017 Anxiety [F41.9] 02/20/2017 Right-sided low back pain with right-sided scia*02/20/2017 Type 2 diabetes mellitus with complication, wit*03/07/2017 Chest pain [R07.9] 11/30/2017 Dysl (more content not included)... Normal [facility] Absolute lymphocyte countOrd ered By: Kaylie Trujillo on 09-10-2023 Lymphocytes Auto (Unsp spec) [#/Vol] 1.61 10*3/uL 0.83-4.51 [facility] Automated lymphocyte count a s percentage of total leukocytesOrdered By: Kaylie Trujillo on 09-10-2023 Lymphocytes/100 WBC Auto (Unsp spec) 25.0 % 19-41 [facility] Basophil percentageOrdered B y: Kaylie Trujillo on 09-10-2023 Basophils/100 WBC (Bld) 0.8 % 0-1 [facility] Chloride [Moles/Vol] 97 mmol/L 98-107 [facility] Cholesterol [Mass/Vol] 140 mg/dL <200 [facility] Comment on above: <200 mg/dL Desirable 200-240 mg/dL Borderline >240 mg/dL High Risk Eosinophils/100 WBC (Bld) 0.8 % 0-5 [facility] Glucose [Mass/Vol] 150 mg/dL 74-106 [facility] Comment on above: Fasting Glucose resu lt greater than or equal to 126 mg/dL suggests DIABETES MELLITUS per A.D.A. criteria. Hemoglobin (Bld) [Mass/Vol] 11.6 g/dL 12.0-15.0 [facility] Monocytes/100 WBC (Bld) 10.6 % 0-10 [facility] Neutrophils (Bld) [#/Vol] 4.0 10*3/uL 2.0-7.7 [facility] Neutrophils/100 WBC (Bld) 62.3 % 47-70 [facility] Potassium [Moles/Vol] 3.7 mmol/L 3.5-5.1 [facility] Sodium [Moles/Vol] 137 mmol/L 136-145 [facility] Triglyceride [Mass/Vol] 227 mg/dL <199 [facility] Comment on above: The drugs N-Acetylcy steine and Metamizole may falsely depress this assay.Serum Triglycerides Reference Interval Normal <150 mg/dL Borderline high 150 - 199 mg/dL High 200 - 499 mg/dL Very High > or = 500 mg/dL WBC (Bld) [#/Vol] 6.4 10*3/uL 4.4-11.0 [facility] Determination of erythrocyte mean corpuscular volume (MCV)Ordered By: Kaylie Trujillo on 09-10-2023 MCV (RBC) [Entitic vol] 82.4 fL 81-99 [facility] Erythrocyte distribution wid th ratioOrdered By: Kaylieoskar Trujillo on 09-10-2023 Erythrocyte distribution width (RBC) [Ratio] 14.3 % 11.6-14.6 [facility] Erythrocyte distribution wid th standard deviationOrdered By: Kaylie Rnonie on 09-10-2023 Erythrocyte distribution width (RBC) [Entitic vol] 42.5 fL 35.1-43.9 [facility] Hematocrit Auto (Bld) [Volum e fraction]Ordered By: Kaylie Trujillo on 09-10-2023 Hematocrit (Bld) [Volume fraction] 36.6 % 37-47 [facility] Immature granulocytes/100 WB C Auto (Bld)Ordered By: Kaylie Trujillo on 09-10-2023 Immature granulocytes/100 WBC (Bld) 0.500 % 0.0-0.9 [facility] Comment on above: IG% - Immature Granu locytes (promyelocytes, myelocytes and metamyelocytes) > 1% indicates that a LEFT SHIFT is Present. Laboratory - Chemistry and C hemistry - challengeOrdered By: Kaylieoskar Trujillo on 09-10-2023 Cholesterol in HDL [Mass/Vol] 31 mg/dL >40 [facility] Comment on above: The drugs N-Acetylcy steine and Metamizole may falsely depress this assay. Reference Range HDL <40 mg/dL Low HDL Cholesterol HDL >or= 60 mg/dL High HDL Cholesterol Cholesterol in LDL [Mass/Vol] 64 mg/dL 0-130 [facility] CO2 [Moles/Vol] 31.0 mmol/L 21.0-32.0 [facility] Cobalamin (Vitamin B12) [Mass/Vol] 300 pg/mL 211-911 [facility] Magnesium [Mass/Vol] 1.8 mg/dL 1.6-2.6 [facility] Urea nitrogen/Creatinine [Mass ratio] 20.4 mg/mg 10-20 [facility] Laboratory - Hematology and Cell countsOrdered By: Kaylie Trujillo on 09-10-2023 MCH (RBC) [Entitic mass] 26.1 pg 27.0-32.0 [facility] MCHC (RBC) [Mass/Vol] 31.7 g/dL 32-36 [facility] Nucleated RBC/100 WBC (Bld) [Ratio] 0 % 0-5 [facility] Platelet mean volume (Bld) [Entitic vol] 9.8 fL 6.2-12.0 [facility] Platelets (Bld) [#/Vol] 262 10*3/uL 150-450 [facility] No Panel InformationOrdered By: Kaylie Trujillo on 09-10-2023 Estimated GFR (MDRD) Amer 92 mL/min >60 [facility] Comment on above: GFR Calc Estimated GFR (MDRD) Non-Af Amer 76 mL/min >60 [facility] Comment on above: Non- GFR Calc Vitamin D 25-Hydroxy 18.5 ng/mL [facility] Comment on above: Vitamin D 25(OH) Sta tus Range Deficiency <20 ng/mL (50nmol/L) Insufficiency 20 - 30 ng/mL (50 - 75 nmol/L) Sufficiency 30 - 100 ng/mL (75 - 250 nmol/L) Toxicity >100 ng/mL (>250 nmol/L) VLDL Cholesterol 45 mg/dL 5-40 [facility] RBC Auto (Bld) [#/Vol]Ordere d By: Kaylie Trujillo on 09-10-2023 RBC (Bld) [#/Vol] 4.44 10*6/uL 4.2-5.4 [facility] Serum or plasma calcium xiomara urement (mass/volume)Ordered By: Kaylie Trujillo on 09-10-2023 Calcium [Mass/Vol] 8.7 mg/dL 8.5-10.1 [facility] Serum or plasma creatinine m easurement (mass/volume)Ordered [...] on 09-10-2023 TSH Qn 5.60 uIU/mL 0.358-3.74 [facility] Serum or plasma urea nitroge n measurement (mass/volume)Ordered By: Kaylieoskar Trujillo on 09-10-2023 Urea nitrogen [Mass/Vol] 17 mg/dL 7-18 [facility] Thin prep Papanicolaou smear with manual screeningOrdered By: KayliePiedmont Newtonopal on 09-10-2023 Thin prep Papanicolaou smear with manual screening 9 5-15 [facility] Whole blood hemoglobin A1c/t otal hemoglobin ratio (mass fraction)Ordered By: Kaylieoskar Trujillo on 09-10-2023 HbA1c (Bld) [Mass fraction] 10.8 % 3.8-5.6 [facility] Comment on above: Normal < 5.7 % Predi abetic 5.7 - 6.4 % Diabetic >or= 6.5 % Please note range changes. CASE MANAGEMon 09-07-2023 CASE MANAGEM HNO ID: [id number] Author: JAMESON BARON RN Service: ? Author Type: Registered Nurse Type: Care Mgt Progress Note Filed: 09/07/2023 14:42 Note Text: CARE MANAGEMENT DISCHARGE NOTE SERVICE DATE: September 07, 2023 SERVICE TIME: 2:41 PM Admission Date: 09/02/2023 LOS: 5 days Discharge Arrangement Discharge Arrangement: Shelter Facility Services Arranged Provider [facility]: [facility] Caregiver Assessment Caregiver is ready, willing and able to meet the patient's needs as recommended by the inter-professional team: Yes Name of Caregiver: SNF Transportation Arrangements Transportation Arrangements: Ambulance Transportation Agency and Phone #:: [facility] ( [facility] ) [phone] / [phone] Date of Trip: 09/07/23 Time of Trip: 1700 Type of Service: BLS Non-emergency Is Patient Medicaid Pending?: No [employer] Manager Location: [facility] Destination: [facility] Care Management Responsibility: None Handoff Communication: Handoff to: Other Caregiver Other Caregiver Name/Phone: nurse to call report Additional Information: Patient to discharge to [facility]. [facility] transport via cot set up for patient at 5PM. Patient and nurse made aware. Transport folder complete and on the chart. SIGNATURE: Jameson Baron RN PATIENT NAME: Trenton Jackson DATE: September 07, 2023 TIME: 2:41 PM CONTACT #: [phone] [facility] HNO ID: [id number] Author: FREDA MACEDO MD Service: General Surgery [...] Doctor: Freda Macedo MD Primary Care Provider: [employer] My Medical Team Members: Treatment Team: Attending Provider: Freda Macedo MD Consulting: Jair Gutierrez MD Consulting: Diya May MD MY CONDITION AT DISCHARGE: Stable REASON I WAS IN THE HOSPITAL: Fall SUMMARY OF WHAT HAPPENED WHILE I WAS IN THE HOSPITAL: Ms. Jackson was admitted at [facility] on 09/02/2023 following a fall. She was found to have the following acute traumatic injuries: 1. Right-sided acute comminuted intertrochanteric proximal femur fracture She was evaluated by orthopedic who recommended surgical fixation of her femur fracture, which she underwent on 09/03/2023. She was evaluated by physical and occupational therapy who recommended a Shelter Facility for her ongoing recovery. Ms. Jackson [...] disorder, mild, abuse Coronary artery disease involving big sandy coronary artery of big sandy heart without angina pectoris Trauma Fall Resolved Problems: * No resolved hospital problems. * OPERATIONS PERFORMED WHILE IN THE HOSPITAL: 09/03/2023 - Right hip CMN (Dr. May) IMPORTANT TEST/PROCEDURES: No procedures performed TEST RESULTS NOT AVAILABLE AT THIS TIME: No pending results Discharge Disposition Discharge Disposition: Shelter Facility - Less than 30 Days Activity When You Leave the Hospital May bathe and shower Resume pre-hospital activity Diet Instructions Resume your pre-hospital diet For Pain When You Leave the Hospital Continue taking previously prescribed pain medications as directed If you become constipated, you may use any ttvf-rgr-adpfcpl treatment such as Milk of Magnesia, Sennakot, Prune Juice, Suppositories, etc. in addition to the stool softener/fiber supplement Use the dispensed medication (see prescription) You should use an vdkr-pnw-akheohj stool softener (Docusate sodium) and/or a fiber [...] call for appointment?: Yes Diya May MD [phone] [facility] [address] [facility] [address] PCP Requested Referral Follow-Up Appointment Please discuss [...] weeks Patient/Parents to call for appointment?: Yes [facility] [phone] [facility] [address] [facility] [id number] (more content not included)... Normal [facility] ED PROV NOTEon 09-07-2023 ED PROV NOTE HNO ID: [id number] Author: MIRNA SAHU MD Service: Emergency Medicine [...] in her bathroom. She was seen at [facility] where she was noted to have [...] Normal ra (more content not included)... Normal [facility] Basic metabolic 2000 panelon 09-06-2023 Anion gap [Moles/Vol] 9 mmol/L Normal 9-18 [facility] Comment on above: Order Comment: Radha tony Type: BLOOD SPECIMEN Ordering Facility: [facility] Address: [address] [place] [address] Performed By: #### 5 8410-2 #### [facility] CLIA [id number] 1 [place] [address] [place] Calcium [Mass/Vol] 8.4 mg/dL Low 8.5-10.2 [facility] Comment on above: Order Comment: Speci men Type: BLOOD SPECIMEN Ordering Facility: [facility] Address: [facility] [place] [address] Performed By: #### 5 8410-2 #### [facility] CLIA [id number] 1 [place] [address] [place] Chloride [Moles/Vol] 97 mmol/L Normal 97-105 [facility] Comment on above: Order Comment: Speci men Type: BLOOD SPECIMEN Ordering Facility: [facility] Address: [address] [place] [address] Performed By: #### 5 8410-2 #### [facility] CLIA [id number] [address] [facility] CO2 [Moles/Vol] 29 mmol/L Normal 22-30 [facility] Comment on above: Order Comment: Speci men Type: BLOOD SPECIMEN Ordering Facility: [facility] Address: [address] [place] [address] Performed By: #### 5 8410-2 #### [facility] CLIA [id number] [address] Creatinine [Mass/Vol] 0.69 mg/dL Normal 0.58-0.96 [facility] Comment on above: Order Comment: Speci men Type: BLOOD SPECIMEN Ordering Facility: [facility] Address: [address] [place] [address] Performed By: #### 5 8410-2 #### [facility] CLIA [id number] [address] Creatinine and Glomerular filtration rate.predicted panel (S/P/Bld) 105 mL/min/1.73m??? Normal >=60 [facility] Comment on above: Order Comment: Speci men Type: BLOOD SPECIMEN Ordering Facility: [facility] Address: [address] [place] [address] Result Comment: Crissy mated Glomerular Filtration Rate [...] GFR. Performed By: #### 5 8410-2 #### [facility] CLIA [id number] [address] Glucose [Mass/Vol] 120 mg/dL High 74-99 [facility] Comment on above: Order Comment: Radha tony Type: BLOOD SPECIMEN Ordering Facility: [facility] Address: [address] [place] [address] Result Comment: [place] Diabetes Association (ADA) provides guidance for cutoff [...] Standards of Medical Care in Diabetes 2016, [place] Diabetes Association. Diabetes Care. 2016.39(Suppl 1). Performed By: #### 5 8410-2 #### [facility] CLIA [id number] 1 [place] [address] [place] Potassium [Moles/Vol] 3.8 mmol/L Normal 3.7-5.1 [facility] Comment on above: Order Comment: Radha tony Type: BLOOD SPECIMEN Ordering Facility: [facility] Address: [address] [place] [address] Performed By: #### 5 8410-2 #### [facility] CLIA [id number] 1 [place] [address] [place] Sodium [Moles/Vol] 135 mmol/L Low 136-144 [facility] Comment on above: Order Comment: Radha tony Type: BLOOD SPECIMEN Ordering Facility: [facility] Address: [address] [place] [address] Performed By: #### 5 8410-2 #### [facility] CLIA [id number] 1 [place] [address] [place] Urea nitrogen [Mass/Vol] 13 mg/dL Normal 7-21 [facility] Comment on above: Order Comment: Radha tony Type: BLOOD SPECIMEN Ordering Facility: [facility] Address: [address] [place], [place] [address] Performed By: #### 5 8410-2 #### [facility] CLIA [id number] [address] CBC panel Auto (Bld)on 09-05 Erythrocyte distribution width (RBC) [Ratio] 14.1 % Normal 11.5-15.0 [facility] Comment on above: Order Comment: Speci men Type: BLOOD SPECIMEN Ordering Facility: [facility] Address: [address] [place] [address] Performed By: #### 5 8410-2 #### [facility] CLIA [id number] [address] Hematocrit (Bld) [Volume fraction] 31.4 % Low 36.0-46.0 [facility] Comment on above: Order Comment: Speci men Type: BLOOD SPECIMEN Ordering Facility: [facility] Address: [address] [place] [address] Performed By: #### 5 8410-2 #### [facility] CLIA [id number] [address] Hemoglobin (Bld) [Mass/Vol] 10.1 g/dL Low 11.5-15.5 [facility] Comment on above: Order Comment: Speci men Type: BLOOD SPECIMEN Ordering Facility: [facility] Address: [address] [place] [address] Performed By: #### 5 8410-2 #### [facility] CLIA [id number] [address] MCH (RBC) [Entitic mass] 26.5 pg Normal 26.0-34.0 [facility] Comment on above: Order Comment: Speci men Type: BLOOD SPECIMEN Ordering Facility: [facility] Address: [facility] [place] [address] Performed By: #### 5 8410-2 #### [facility] CLIA [id number] [address] MCHC (RBC) [Mass/Vol] 32.2 g/dL Normal 30.5-36.0 [facility] Comment on above: Order Comment: Speci men Type: BLOOD SPECIMEN Ordering Facility: [facility] Address: [facility] [place] [address] Performed By: #### 5 8410-2 #### [facility] CLIA [id number] [address] MCV (RBC) [Entitic vol] 82.4 fL Normal 80.0-100.0 [facility] Comment on above: Order Comment: Speci men Type: BLOOD SPECIMEN Ordering Facility: [facility] Address: [address] [place] [address] Performed By: #### 5 8410-2 #### [facility] CLIA [id number] [address] [facility] Nucleated RBC (Bld) [#/Vol] 10*3/uL Normal <0.01 [facility] Comment on above: Order Comment: Speci men Type: BLOOD SPECIMEN Ordering Facility: [facility] Address: [address] [place] [address] Performed By: #### 5 8410-2 #### [facility] CLIA [id number] [address] Platelet mean volume (Bld) [Entitic vol] 10.2 fL Normal 9.0-12.7 [facility] Comment on above: Order Comment: Speci men Type: BLOOD SPECIMEN Ordering Facility: [facility] Address: [address] [place] [address] Performed By: #### 5 8410-2 #### [facility] CLIA [id number] [address] [place] Platelets (Bld) [#/Vol] 135 10*3/uL Low 150-400 [facility] Comment on above: Order Comment: Speci men Type: BLOOD SPECIMEN Ordering Facility: [facility] Address: [address] [place] [address] Result Comment: No c lot detected. Performed By: #### 5 8410-2 #### [facility] CLIA [id number] [address] [place] RBC (Bld) [#/Vol] 3.81 10*6/uL Low 3.90-5.20 [facility] Comment on above: Order Comment: Speci men Type: BLOOD SPECIMEN Ordering Facility: [facility] Address: [address] [place] [address] Performed By: #### 5 8410-2 #### [facility] CLIA [id number] [address] OF [facility] WBC (Bld) [#/Vol] 9.50 10*3/uL Normal 3.70-11.00 [facility] Comment on above: Order Comment: Speci men Type: BLOOD SPECIMEN Ordering Facility: [facility] Address: [address] [place] [address] Performed By: #### 5 8410-2 #### [facility] CLIA [id number] [address] THERAPY NTon 09-06-2023 THERAPY NT HNO ID: [id number] Author: EILEEN MACIAS, PT Service: Physical Therapy Author Type: Physical Therapist Type: Therapy (PT/OT/Speech/Resp) Filed: 09/06/2023 13:17 Note Text: Physical Therapy Treatment Summary SERVICE DATE: 09/06/2023 SERVICE TIME: 1030 to 1053 ROOM: [place] [address] PT 6 Clicks Score: 10 DISCHARGE RECOMMENDATIONS [...] Required With: 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 SUBJECTIVE Agreeable to PT, reports increased pain this session. Emotional, tearful. THERAPY DIAGNOSIS Reduced mobility-other, Muscle Weakness (generalized), Unsteadiness on feet, Abnormalities of gait and mobility-other, General symptoms and signs-other, Difficulty walking-musculoskeletal TREATMENT INTERVENTIONS Therapeutic Activity (16450), Therapeutic Exercise (34311) Timed Code Treatment (minutes): 23 Skilled Treatment Time (minutes): 23 Therapeutic Exercise (57665) Treatment Minutes: 13 $ Therapeutic Exercise (42798) Billed Units: 1 unit Patient completed right hip fracture protocol (ankle pump, quad set, gluteal set, heel slide, hip abd/add to neutral, short arc quad, hip adductor squeeze) x 10 reps with min/mod amount of assist. Patient reports moderate/severe pain. Patient set up with ice to surgical hip and elevated lower extremity as needed. Therapeutic Activity (12839) Treatment Minutes: 10 $ Therapeutic Activity (59975) Billed Units: 1 unit Rolling for hygiene, [...] September 06, 2023 TIME: 1:14 PM Normal [facility] Basic metabolic 2000 panelon 09-05-2023 Anion gap [Moles/Vol] 9 mmol/L Normal 9-18 [facility] Comment on above: Order Comment: Speci men Type: BLOOD SPECIMEN Ordering Facility: [facility] Address: [address] [place] [address] Performed By: #### 2 4321-2 #### [facility] CLIA [id number] 1 [place] [address] [place] Calcium [Mass/Vol] 8.5 mg/dL Normal 8.5-10.2 [facility] Comment on above: Order Comment: Speci men Type: BLOOD SPECIMEN Ordering Facility: [facility] Address: [address] [place] [address] Performed By: #### 2 4321-2 #### [facility] CLIA [id number] 1 [place] [address] [place] Chloride [Moles/Vol] 96 mmol/L Low 97-105 [facility] Comment on above: Order Comment: Speci men Type: BLOOD SPECIMEN Ordering Facility: [facility] Address: [address] [place] [address] Performed By: #### 2 4321-2 #### [facility] CLIA [id number] 1 [place] [address] [place] CO2 [Moles/Vol] 28 mmol/L Normal 22-30 [facility] Comment on above: Order Comment: Speci men Type: BLOOD SPECIMEN Ordering Facility: [facility] Address: [address] [place] [address] Performed By: #### 2 4321-2 #### [facility] CLIA [id number] [address] [place] Creatinine [Mass/Vol] 0.63 mg/dL Normal 0.58-0.96 [facility] Comment on above: Order Comment: Radha tony Type: BLOOD SPECIMEN Ordering Facility: [facility] Address: [address] [place] [address] Performed By: #### 2 4321-2 #### [facility] CLIA [id number] [address] Creatinine and Glomerular filtration rate.predicted panel (S/P/Bld) 107 mL/min/1.73m??? Normal >=60 [facility] Comment on above: Order Comment: Radha tony Type: BLOOD SPECIMEN Ordering Facility: [facility] Address: [address] [place] [address] Result Comment: Crissy mated Glomerular Filtration Rate [...] GFR. Performed By: #### 2 4321-2 #### [facility] CLIA [id number] [address] [place] [address] [place] [facility] Glucose [Mass/Vol] 110 mg/dL High 74-99 [facility] Comment on above: Order Comment: Radha tony Type: BLOOD SPECIMEN Ordering Facility: [facility] Address: [address] [place] [address] Result Comment: The [place] Diabetes Association (ADA) provides guidance for cutoff [...] Standards of Medical Care in Diabetes 2016, [place] Diabetes Association. Diabetes Care. 2016.39(Suppl 1). Performed By: #### 2 4321-2 #### [facility] CLIA [id number] [address] Potassium [Moles/Vol] 3.8 mmol/L Normal 3.7-5.1 [facility] Comment on above: Order Comment: Speci men Type: BLOOD SPECIMEN Ordering Facility: [facility] Address: [address] [place] [address] Performed By: #### 2 4321-2 #### [facility] CLIA [id number] [address] Sodium [Moles/Vol] 133 mmol/L Low 136-144 [facility] Comment on above: Order Comment: Speci men Type: BLOOD SPECIMEN Ordering Facility: [facility] Address: [address] [place] [address] Performed By: #### 2 4321-2 #### [facility] CLIA [id number] [address] Urea nitrogen [Mass/Vol] 13 mg/dL Normal 7-21 [facility] Comment on above: Order Comment: Speci men Type: BLOOD SPECIMEN Ordering Facility: [facility] Address: [address] [place] [address] Performed By: #### 2 4321-2 #### [facility] CLIA [id number] [address] CBC panel Auto (Bld)on 09-04 Erythrocyte distribution width (RBC) [Ratio] 14.0 % Normal 11.5-15.0 [facility] Comment on above: Order Comment: Speci men Type: BLOOD SPECIMEN Ordering Facility: [facility] Address: [address] [place] [address] Performed By: #### 5 8410-2 #### [facility] CLIA [id number] [address] [place] [address] [place] Hematocrit (Bld) [Volume fraction] 35.1 % Low 36.0-46.0 [facility] Comment on above: Order Comment: Speci men Type: BLOOD SPECIMEN Ordering Facility: [facility] Address: [address] [place] [address] Performed By: #### 5 8410-2 #### [facility] CLIA [id number] [address] Hemoglobin (Bld) [Mass/Vol] 11.5 g/dL Normal 11.5-15.5 [facility] Comment on above: Order Comment: Speci men Type: BLOOD SPECIMEN Ordering Facility: [facility] Address: [address] [place] [address] Performed By: #### 5 8410-2 #### [facility] CLIA [id number] [address] OF [facility] MCH (RBC) [Entitic mass] 26.7 pg Normal 26.0-34.0 [facility] Comment on above: Order Comment: Speci men Type: BLOOD SPECIMEN Ordering Facility: [facility] Address: [address] [place] [address] Performed By: #### 5 8410-2 #### [facility] CLIA [id number] [address] MCHC (RBC) [Mass/Vol] 32.8 g/dL Normal 30.5-36.0 [facility] Comment on above: Order Comment: Speci men Type: BLOOD SPECIMEN Ordering Facility: [facility] Address: [address] [place] [address] Performed By: #### 5 8410-2 #### [facility] CLIA [id number] [address] MCV (RBC) [Entitic vol] 81.4 fL Normal 80.0-100.0 [facility] Comment on above: Order Comment: Speci men Type: BLOOD SPECIMEN Ordering Facility: [facility] Address: [address] [place] [address] Performed By: #### 5 8410-2 #### [facility] CLIA [id number] [address] Nucleated RBC (Bld) [#/Vol] 10*3/uL Normal <0.01 [facility] Comment on above: Order Comment: Speci men Type: BLOOD SPECIMEN Ordering Facility: [facility] Address: [address] [place] [address] Performed By: #### 5 8410-2 #### [facility] CLIA [id number] [address] OF [facility] Platelet mean volume (Bld) [Entitic vol] 10.5 fL Normal 9.0-12.7 [facility] Comment on above: Order Comment: Speci men Type: BLOOD SPECIMEN Ordering Facility: [facility] Address: [address] [place] [address] Performed By: #### 5 8410-2 #### [facility] CLIA [id number] [address] Platelets (Bld) [#/Vol] 111 10*3/uL Low 150-400 [facility] Comment on above: Order Comment: Speci men Type: BLOOD SPECIMEN Ordering Facility: [facility] Address: [address] [place] [address] Result Comment: No c lot detected. Performed By: #### 5 8410-2 #### [facility] CLIA [id number] [address] RBC (Bld) [#/Vol] 4.31 10*6/uL Normal 3.90-5.20 [facility] Comment on above: Order Comment: Speci men Type: BLOOD SPECIMEN Ordering Facility: [facility] Address: [address] [place] [address] Performed By: #### 5 8410-2 #### [facility] CLIA [id number] [address] [place] WBC (Bld) [#/Vol] 13.47 10*3/uL High 3.70-11.00 [facility] Comment on above: Order Comment: Speci men Type: BLOOD SPECIMEN Ordering Facility: [facility] Address: [facility] [place] [address] Performed By: #### 5 8410-2 #### [facility] CLIA [id number] 1 [place] [address] [place] THERAPY NTon 09-05-2023 THERAPY NT HNO ID: [id number] Author: EILEEN MACIAS, PT Service: Physical Therapy Author Type: Physical Therapist Type: Therapy (PT/OT/Speech/Resp) Filed: 09/05/2023 13:25 Note Text: Physical Therapy Treatment Summary SERVICE DATE: 09/05/2023 SERVICE TIME: 1039 to 1102 ROOM: [place] [address] PT 6 Clicks Score: 10 DISCHARGE RECOMMENDATIONS [...] Required With: 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 SUBJECTIVE Pleasant and agreeable to PT. THERAPY DIAGNOSIS Reduced mobility-other, Muscle Weakness (generalized), Unsteadiness on feet, Abnormalities of gait and mobility-other, General symptoms and signs-other, Difficulty walking-musculoskeletal TREATMENT INTERVENTIONS Therapeutic Exercise (88150), Therapeutic Activity (79414) Timed Code Treatment (minutes): 23 Skilled Treatment Time (minutes): 23 Therapeutic Exercise (80205) Treatment Minutes: 12 $ Therapeutic Exercise (35669) Billed Units: 1 unit Patient completed right hip fracture protocol (ankle pump, quad set, gluteal set, heel slide, hip abd/add to neutral, short arc quad, long arc quad, hip adductor squeeze) x 10 reps with min amount of assist. Patient reports moderate pain. Patient set up with ice to surgical hip and elevated lower extremity as needed. Therapeutic Activity (05308) Treatment Minutes: 11 $ Therapeutic Activity (75445) Billed Units: 1 unit TRAINING AND EDUCATION [...] September 05, 2023 TIME: 1:23 PM Normal [facility] ANES POSTPROC EVALon 024 ANES POSTPROC EVAL HNO ID: [id number] Author: MOODY HODGE DO Service: Anesthesiology Author [...] November 02, 2023 TIME: 10:25 AM CSN: [id number] Normal [facility] Basic metabolic 2000 panelon 09-04-2023 Anion gap [Moles/Vol] 9 mmol/L Normal 9-18 [facility] Comment on above: Order Comment: Speci men Type: BLOOD SPECIMEN Ordering Facility: [facility] Address: [address] [place] [address] Performed By: #### 2 4321-2 #### [facility] CLIA [id number] [address] [place] Calcium [Mass/Vol] 8.5 mg/dL Normal 8.5-10.2 [facility] Comment on above: Order Comment: Speci men Type: BLOOD SPECIMEN Ordering Facility: [facility] Address: [address] [place] [address] Performed By: #### 2 4321-2 #### [facility] CLIA [id number] [address] [place] [address] [place] Chloride [Moles/Vol] 97 mmol/L Normal 97-105 [facility] Comment on above: Order Comment: Speci men Type: BLOOD SPECIMEN Ordering Facility: [facility] Address: [address] [place] [address] Performed By: #### 2 4321-2 #### [facility] CLIA [id number] [address] [place] CO2 [Moles/Vol] 30 mmol/L Normal 22-30 [facility] Comment on above: Order Comment: Speci men Type: BLOOD SPECIMEN Ordering Facility: [facility] Address: [address] [place] [address] Performed By: #### 2 4321-2 #### [facility] CLIA [id number] [address] [place] Creatinine [Mass/Vol] 0.78 mg/dL Normal 0.58-0.96 [facility] Comment on above: Order Comment: Speci men Type: BLOOD SPECIMEN Ordering Facility: [facility] Address: [address] [place] [address] Performed By: #### 2 4321-2 #### [facility] CLIA [id number] [address] [place] Creatinine and Glomerular filtration rate.predicted panel (S/P/Bld) 92 mL/min/1.73m??? Normal >=60 [facility] Comment on above: Order Comment: Radha tony Type: BLOOD SPECIMEN Ordering Facility: [facility] Address: [address] [place] [address] Result Comment: Crsisy mated Glomerular Filtration Rate (eGFR) is calculated [...] GFR. Performed By: #### 2 4321-2 #### [facility] CLIA [id number] 1 [place] [address] [place] Glucose [Mass/Vol] 174 mg/dL High 74-99 [facility] Comment on above: Order Comment: Radha tony Type: BLOOD SPECIMEN Ordering Facility: [facility] Address: [address] [place] [address] Result Comment: The [place] Diabetes Association (ADA) provides guidance for cutoff [...] Standards of Medical Care in Diabetes 2016, [place] Diabetes Association. Diabetes Care. 2016.39(Suppl 1). Performed By: #### 2 4321-2 #### [facility] CLIA [id number] [address] [place] [address] [place] Potassium [Moles/Vol] 3.8 mmol/L Normal 3.7-5.1 [facility] Comment on above: Order Comment: Radha tony Type: BLOOD SPECIMEN Ordering Facility: [facility] Address: [address] [place] [id number] Performed By: #### 2 4321-2 #### [facility] CLIA [id number] [address] STATES [facility] Sodium [Moles/Vol] 136 mmol/L Normal 136-144 [facility] Comment on above: Order Comment: Speci men Type: BLOOD SPECIMEN Ordering Facility: [facility] Address: [address] [place] [address] Performed By: #### 2 4321-2 #### [facility] CLIA [id number] [address] [place] Urea nitrogen [Mass/Vol] 13 mg/dL Normal 7-21 [facility] Comment on above: Order Comment: Speci men Type: BLOOD SPECIMEN Ordering Facility: [facility] Address: [address] [place] [address] Performed By: #### 2 4321-2 #### [facility] CLIA [id number] [address] [place] CBC panel Auto (Bld)on 09-03 Erythrocyte distribution width (RBC) [Ratio] 14.1 % Normal 11.5-15.0 [facility] Comment on above: Order Comment: Speci men Type: BLOOD SPECIMEN Ordering Facility: [facility] Address: [address] [place] [address] Performed By: #### 2 4321-2 #### [facility] CLIA [id number] [address] [place] Hematocrit (Bld) [Volume fraction] 37.7 % Normal 36.0-46.0 [facility] Comment on above: Order Comment: Speci men Type: BLOOD SPECIMEN Ordering Facility: [facility] Address: [address] [place] [address] Performed By: #### 2 4321-2 #### [facility] CLIA [id number] [address] [place] Hemoglobin (Bld) [Mass/Vol] 12.3 g/dL Normal 11.5-15.5 [facility] Comment on above: Order Comment: Speci men Type: BLOOD SPECIMEN Ordering Facility: [facility] Address: [address] [place] [address] Performed By: #### 2 4321-2 #### [facility] CLIA [id number] [address] MCH (RBC) [Entitic mass] 26.8 pg Normal 26.0-34.0 [facility] Comment on above: Order Comment: Speci men Type: BLOOD SPECIMEN Ordering Facility: [facility] Address: [address] [place] [address] Performed By: #### 2 4321-2 #### [facility] CLIA [id number] [address] MCHC (RBC) [Mass/Vol] 32.6 g/dL Normal 30.5-36.0 [facility] Comment on above: Order Comment: Speci men Type: BLOOD SPECIMEN Ordering Facility: [facility] Address: [address] [place] [address] Performed By: #### 2 4321-2 #### [facility] CLIA [id number] [address] MCV (RBC) [Entitic vol] 82.1 fL Normal 80.0-100.0 [facility] Comment on above: Order Comment: Speci men Type: BLOOD SPECIMEN Ordering Facility: [facility] Address: [address] [place] [address] Performed By: #### 2 4321-2 #### [facility] CLIA [id number] [address] Nucleated RBC (Bld) [#/Vol] 10*3/uL Normal <0.01 [facility] Comment on above: Order Comment: Speci men Type: BLOOD SPECIMEN Ordering Facility: [facility] Address: [address] [place] [address] Performed By: #### 2 4321-2 #### [facility] CLIA [id number] [address] [place] Platelet mean volume (Bld) [Entitic vol] 9.9 fL Normal 9.0-12.7 [facility] Comment on above: Order Comment: Speci men Type: BLOOD SPECIMEN Ordering Facility: [facility] Address: [address] [place] [address] Performed By: #### 2 4321-2 #### [facility] CLIA [id number] [address] [facility] Platelets (Bld) [#/Vol] 108 10*3/uL Low 150-400 [facility] Comment on above: Order Comment: Speci men Type: BLOOD SPECIMEN Ordering Facility: [facility] Address: [address] [place] [address] Result Comment: No c lot detected. Performed By: #### 2 4321-2 #### [facility] CLIA [id number] [address] RBC (Bld) [#/Vol] 4.59 10*6/uL Normal 3.90-5.20 [facility] Comment on above: Order Comment: Speci men Type: BLOOD SPECIMEN Ordering Facility: [facility] Address: [address] [place] [address] Performed By: #### 2 4321-2 #### [facility] CLIA [id number] [address] [facility] WBC (Bld) [#/Vol] 12.21 10*3/uL High 3.70-11.00 [facility] Comment on above: Order Comment: Speci men Type: BLOOD SPECIMEN Ordering Facility: [facility] Address: [address] [place] [address] Performed By: #### 2 4321-2 #### [facility] CLIA [id number] [address] Comprehensive metabolic 2000 panelon 09-04-2023 Albumin [Mass/Vol] 2.6 g/dL Low 3.9-4.9 [facility] Comment on above: Order Comment: Speci men Type: BLOOD SPECIMEN Ordering Facility: [facility] Address: [address] [place] [address] Performed By: #### 2 4321-2 #### [facility] CLIA [id number] [address] [place] ALP [Catalytic activity/Vol] 92 U/L Normal 34-123 [facility] Comment on above: Order Comment: Speci men Type: BLOOD SPECIMEN Ordering Facility: [facility] Address: [address] [place] [address] Performed By: #### 2 4321-2 #### [facility] CLIA [id number] [address] [facility] ALT With P-5'-P [Catalytic activity/Vol] 9 U/L Normal 7-38 [facility] Comment on above: Order Comment: Speci men Type: BLOOD SPECIMEN Ordering Facility: [facility] Address: [address] [place] [address] Performed By: #### 2 4321-2 #### [facility] CLIA [id number] [address] Anion gap [Moles/Vol] 6 mmol/L Low 9-18 [facility] Comment on above: Order Comment: Speci men Type: BLOOD SPECIMEN Ordering Facility: [facility] Address: [address] [place] [address] Performed By: #### 2 4321-2 #### [facility] CLIA [id number] [address] AST With P-5'-P [Catalytic activity/Vol] 13 U/L Normal 13-35 [facility] Comment on above: Order Comment: Speci men Type: BLOOD SPECIMEN Ordering Facility: [facility] Address: [address] [place] [address] Performed By: #### 2 4321-2 #### [facility] CLIA [id number] [address] Bilirubin [Mass/Vol] 0.8 mg/dL Normal 0.2-1.3 [facility] Comment on above: Order Comment: Speci men Type: BLOOD SPECIMEN Ordering Facility: [facility] Address: [address] [place], [place] [address] Performed By: #### 2 4321-2 #### [facility] CLIA [id number] [address] [place] Calcium [Mass/Vol] 8.4 mg/dL Low 8.5-10.2 [facility] Comment on above: Order Comment: Speci men Type: BLOOD SPECIMEN Ordering Facility: [facility] Address: [address] [place] [address] Performed By: #### 2 4321-2 #### [facility] CLIA [id number] 1 [place] [address] [place] Chloride [Moles/Vol] 98 mmol/L Normal 97-105 [facility] Comment on above: Order Comment: Speci men Type: BLOOD SPECIMEN Ordering Facility: [facility] Address: [address] [place] [address] Performed By: #### 2 4321-2 #### [facility] CLIA [id number] [address] [place] CO2 [Moles/Vol] 30 mmol/L Normal 22-30 [facility] Comment on above: Order Comment: Speci men Type: BLOOD SPECIMEN Ordering Facility: [facility] Address: [address] [place] [address] Performed By: #### 2 4321-2 #### [facility] CLIA [id number] [address] [place] Creatinine [Mass/Vol] 0.66 mg/dL Normal 0.58-0.96 [facility] Comment on above: Order Comment: Speci men Type: BLOOD SPECIMEN Ordering Facility: [facility] Address: [address] [place] [address] Performed By: #### 2 4321-2 #### [facility] CLIA [id number] [address] [place] Creatinine and Glomerular filtration rate.predicted panel (S/P/Bld) 106 mL/min/1.73m??? Normal >=60 [facility] Comment on above: Order Comment: Speci men Type: BLOOD SPECIMEN Ordering Facility: [facility] Address: [address] [place] [address] Result Comment: Crissy mated Glomerular Filtration Rate [...] GFR. Performed By: #### 2 4321-2 #### [facility] CLIA [id number] 1 [place] [address] [place] Glucose [Mass/Vol] 160 mg/dL High 74-99 [facility] Comment on above: Order Comment: Radha tony Type: BLOOD SPECIMEN Ordering Facility: [facility] Address: [address] [place] [address] Result Comment: [place] Diabetes Association (ADA) provides guidance for cutoff [...] Standards of Medical Care in Diabetes 2016, [place] Diabetes Association. Diabetes Care. 2016.39(Suppl 1). Performed By: #### 2 4321-2 #### [facility] CLIA [id number] 1 [place] [address] [place] Potassium [Moles/Vol] 3.7 mmol/L Normal 3.7-5.1 [facility] Comment on above: Order Comment: Radha tony Type: BLOOD SPECIMEN Ordering Facility: [facility] Address: [address] [place] [id number] Performed By: #### 2 4321-2 #### [facility] CLIA [id number] [address] [place] Protein [Mass/Vol] 5.8 g/dL Low 6.3-8.0 [facility] Comment on above: Order Comment: Speci men Type: BLOOD SPECIMEN Ordering Facility: [facility] Address: [address] [place] [address] Performed By: #### 2 4321-2 #### [facility] CLIA [id number] [address] [place] Sodium [Moles/Vol] 134 mmol/L Low 136-144 [facility] Comment on above: Order Comment: Speci men Type: BLOOD SPECIMEN Ordering Facility: [facility] Address: [address] [place] [address] Performed By: #### 2 4321-2 #### [facility] CLIA [id number] [address] [place] [address] [place] Urea nitrogen [Mass/Vol] 13 mg/dL Normal 7-21 [facility] Comment on above: Order Comment: Speci men Type: BLOOD SPECIMEN Ordering Facility: [facility] Address: [address] [place] [address] Performed By: #### 2 4321-2 #### [facility] CLIA [id number] [address] [place] [address] HbA1c (Bld)on 09-04-2023 Average glucose Estimated from glycated hemoglobin (Bld) [Mass/Vol] 272 mg/dL Normal [facility] Comment on above: Order Comment: Speci men Type: BLOOD SPECIMEN Ordering Facility: [facility] Address: [address] [place] [address] Result Comment: eAG: (Estimated average glucose) is a calculated value from HgbA1c and is account development representative of the average blood glucose level in the last 2-3 month period. Performed By: #### 2 4321-2 #### [facility] CLIA [id number] [address] [place] HbA1c (Bld) [Mass fraction] 11.1 % High 4.3-5.6 [facility] Comment on above: Order Comment: Speci men Type: BLOOD SPECIMEN Ordering Facility: [facility] Address: [address] [place] [address] Result Comment: [place] Diabetes Association guidelines indicate that patients with HgbA1c in the range 5.7-6.4% are at increased risk for development of diabetes, and intervention by lifestyle modification may be beneficial. HgbA1c greater or equal to 6.5% is considered diagnostic of diabetes. 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 SUBJECTIVE Pleasant and agreeable to PT. THERAPY DIAGNOSIS Reduced mobility-other, Muscle Weakness (generalized), Unsteadiness on feet, Abnormalities of gait and mobility-other, General symptoms and signs-other, Difficulty walking-musculoskeletal TREATMENT INTERVENTIONS Evaluation, Therapeutic Activity (74569) Timed Code Treatment (minutes): 8 Skilled Treatment Time (minutes): 23 $ Evaluation-Moderate (08693) Billed Units: 1 unit Therapeutic Activity (84861) Treatment Minutes: 8 $ Therapeutic Activity (67859) Billed Units: 1 unit Instructed weight bearing [...] September 04, 2023 TIME: 12:19 PM Normal [facility] THERAPY NT HNO ID: [id number] Author: LEWIS CARPIO OTR/Gian Service: Occupational Therapy Author Type: Occupational Therapist Type: Therapy (PT/OT/Speech/Resp) Filed: 09/04/2023 09:28 Note Text: Occupational Therapy Evaluation Summary SERVICE DATE: 09/04/2023 SERVICE TIME: 816 to 08 ROOM: [place] [address] OT 6 Clicks Score: 16 DISCHARGE RECOMMENDATIONS [...] Required With: Transportation 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 [...] and signs-other TREATMENT INTERVENTIONS Evaluation, Therapeutic Activity (97355) Timed Code Treatment (minutes): 12 Skilled Treatment Time (minutes): 29 $ Evaluation - Moderate (30403) Billed Units: 1 unit Therapeutic Activity (80685) Treatment Minutes: 12 $ Therapeutic Activity (63600) Billed Units: 1 unit TRAINING AND EDUCATION PROVIDED Assistive Device Use, Bed Mobility, Benefits of In-Hospital Mobility, Discharge Planning, Disease Specific Education, Functional Mobility Involving ADLs, Role of Occupational Therapy, Safety/Judgment, Precautions/Restrictions, Standing Balance to Improve [place] with ADLs/Self-Care, Transfer - Sit to Stand, [...] DATE: September 04, 2023 TIME: 9:26 AM [facility] ANES PRE-OPon 09-03-2023 ANES PRE-OP HNO ID: [id number] Author: MOODY HODGE DO Service: Anesthesiology Author [...] Problems CARDIO (+) Coronary artery disease involving big sandy coronary artery of big sandy heart without angina pectoris (+) Essential hypertension [...] -RENAL (+) ROBBIE (acute kidney injury) (FORM[facility]LY [facility]) I - PHYSICAL EVALUATION AIRWAY Patient intubated: [...] 4 times (more content not included)... Normal [facility] BRIEF OP NOTon 09-03-2023 BRIEF OP NOT HNO ID: [id number] Author: JUANCARLOS ELDRIDGE MD Service: Orthopaedic Surgery Author Type: Resident Type: Brief Op Note Filed: 09/03/2023 13:25 Note Text: BRIEF OPERATIVE / PROCEDURE NOTE LOG ID: [id number] SURGERY/PROCEDURE DATE: 09/03/2023 INCISION/PROCEDURE START TIME: 12:41 PM INCISION CLOSE/PROCEDURE END TIME: SURGEON(S)/PROCEDURALIST( S) AND SECURITIES CONSULTANT(S): Surgeon(s) and Role: * Diya May MD [...] Eldridge MD Orthopaedic Surgery 09/03/2023 1:21 PM [facility] Basic metabolic 2000 panelon 09-03-2023 Anion gap [Moles/Vol] 7 mmol/L Low 9-18 [facility] Comment on above: Order Comment: Speci men Type: BLOOD SPECIMEN Ordering Facility: [facility] Address: [address] [place] [address] Performed By: #### 5 8410-2 #### [facility] CLIA [id number] [address] [place] Calcium [Mass/Vol] 8.8 mg/dL Normal 8.5-10.2 [facility] Comment on above: Order Comment: Speci men Type: BLOOD SPECIMEN Ordering Facility: [facility] Address: [address] [place] [address] Performed By: #### 5 8410-2 #### [facility] CLIA [id number] [address] [place] Chloride [Moles/Vol] 99 mmol/L Normal 97-105 [facility] Comment on above: Order Comment: Speci men Type: BLOOD SPECIMEN Ordering Facility: [facility] Address: [address] [place] [address] Performed By: #### 5 8410-2 #### [facility] CLIA [id number] [address] [place] CO2 [Moles/Vol] 32 mmol/L High 22-30 [facility] Comment on above: Order Comment: Speci men Type: BLOOD SPECIMEN Ordering Facility: [facility] Address: [address] [place] [address] Performed By: #### 5 8410-2 #### [facility] CLIA [id number] [address] [place] Creatinine [Mass/Vol] 0.56 mg/dL Low 0.58-0.96 [facility] Comment on above: Order Comment: Speci men Type: BLOOD SPECIMEN Ordering Facility: [facility] Address: [address] [place] [address] Performed By: #### 5 8410-2 #### [facility] CLIA [id number] [address] [place] Creatinine and Glomerular filtration rate.predicted panel (S/P/Bld) 110 mL/min/1.73m??? Normal >=60 [facility] Comment on above: Order Comment: Radha tony Type: BLOOD SPECIMEN Ordering Facility: [facility] Address: [address] [place] [address] Result Comment: Crissy mated Glomerular Filtration Rate [...] GFR. Performed By: #### 5 8410-2 #### [facility] CLIA [id number] 1 [place] [address] [place] Glucose [Mass/Vol] 130 mg/dL High 74-99 [facility] Comment on above: Order Comment: Radha tony Type: BLOOD SPECIMEN Ordering Facility: [facility] Address: [address] [place] [address] Result Comment: The [place] Diabetes Association (ADA) provides guidance for cutoff [...] Standards of Medical Care in Diabetes 2016, [place] Diabetes Association. Diabetes Care. 2016.39(Suppl 1). Performed By: #### 5 8410-2 #### [facility] CLIA [id number] 1 [place] [address] [place] Potassium [Moles/Vol] 3.5 mmol/L Low 3.7-5.1 [facility] Comment on above: Order Comment: Speci men Type: BLOOD SPECIMEN Ordering Facility: [facility] Address: [address] [place] [address] Performed By: #### 5 8410-2 #### [facility] CLIA [id number] [address] Sodium [Moles/Vol] 138 mmol/L Normal 136-144 [facility] Comment on above: Order Comment: Speci men Type: BLOOD SPECIMEN Ordering Facility: [facility] Address: [address] [place] [address] Performed By: #### 5 8410-2 #### [facility] CLIA [id number] [address] STATES [facility] Urea nitrogen [Mass/Vol] 6 mg/dL Low 7-21 [facility] Comment on above: Order Comment: Speci men Type: BLOOD SPECIMEN Ordering Facility: [facility] Address: [address] [place] [address] Performed By: #### 5 8410-2 #### [facility] CLIA [id number] [address] [facility] CBC panel Auto (Bld)on 09-02 Erythrocyte distribution width (RBC) [Ratio] 13.6 % Normal 11.5-15.0 [facility] Comment on above: Order Comment: Speci men Type: BLOOD SPECIMEN Ordering Facility: [facility] Address: [address] [place] [address] Performed By: #### 5 8410-2 #### [facility] CLIA [id number] [address] Hematocrit (Bld) [Volume fraction] 39.4 % Normal 36.0-46.0 [facility] Comment on above: Order Comment: Speci men Type: BLOOD SPECIMEN Ordering Facility: [facility] Address: [address] [place] [address] Performed By: #### 5 8410-2 #### [facility] CLIA [id number] [address] Hemoglobin (Bld) [Mass/Vol] 13.2 g/dL Normal 11.5-15.5 [facility] Comment on above: Order Comment: Speci men Type: BLOOD SPECIMEN Ordering Facility: [facility] Address: [address] [place] [address] Performed By: #### 5 8410-2 #### [facility] CLIA [id number] [address] MCH (RBC) [Entitic mass] 26.6 pg Normal 26.0-34.0 [facility] Comment on above: Order Comment: Speci men Type: BLOOD SPECIMEN Ordering Facility: [facility] Address: [address] [place] [address] Performed By: #### 5 8410-2 #### [facility] CLIA [id number] [address] MCHC (RBC) [Mass/Vol] 33.5 g/dL Normal 30.5-36.0 [facility] Comment on above: Order Comment: Speci men Type: BLOOD SPECIMEN Ordering Facility: [facility] Address: [address] [place] [address] Performed By: #### 5 8410-2 #### [facility] CLIA [id number] [address] MCV (RBC) [Entitic vol] 79.4 fL Low 80.0-100.0 [facility] Comment on above: Order Comment: Speci men Type: BLOOD SPECIMEN Ordering Facility: [facility] Address: [address] [place] [address] Performed By: #### 5 8410-2 #### [facility] CLIA [id number] [address] Nucleated RBC (Bld) [#/Vol] 10*3/uL Normal <0.01 [facility] Comment on above: Order Comment: Speci men Type: BLOOD SPECIMEN Ordering Facility: [facility] Address: [address] [place] [address] Performed By: #### 5 8410-2 #### [facility] CLIA [id number] [address] Platelet mean volume (Bld) [Entitic vol] 9.6 fL Normal 9.0-12.7 [facility] Comment on above: Order Comment: Speci men Type: BLOOD SPECIMEN Ordering Facility: [facility] Address: [address] [place] [address] Performed By: #### 5 8410-2 #### [facility] CLIA [id number] [address] [facility] Platelets (Bld) [#/Vol] 146 10*3/uL Low 150-400 [facility] Comment on above: Order Comment: Speci men Type: BLOOD SPECIMEN Ordering Facility: [facility] Address: [address] [place] [address] Result Comment: No c lot detected. Performed By: #### 5 8410-2 #### [facility] CLIA [id number] [address] RBC (Bld) [#/Vol] 4.96 10*6/uL Normal 3.90-5.20 [facility] Comment on above: Order Comment: Speci men Type: BLOOD SPECIMEN Ordering Facility: [facility] Address: [address] [place] [address] Performed By: #### 5 8410-2 #### [facility] CLIA [id number] [address] [facility] WBC (Bld) [#/Vol] 13.08 10*3/uL High 3.70-11.00 [facility] Comment on above: Order Comment: Speci men Type: BLOOD SPECIMEN Ordering Facility: [facility] Address: [address] [place] [address] Performed By: #### 5 8410-2 #### [facility] CLIA [id number] [address] CONFIRM BLOOD TYPEon 024 ABO O Normal [facility] Comment on above: Order Comment: Speci men Type: BLOOD SPECIMEN Ordering Facility: [facility] Address: [address] [id number] Performed By: #### 5 8410-2 #### [facility] CLIA [id number] [address] Rh Nom (Bld) Positive Normal [facility] Comment on above: Order Comment: Speci men Type: BLOOD SPECIMEN Ordering Facility: [facility] Address: [address] [place] [address] Performed By: #### 5 8410-2 #### [facility] CLIA [id number] [address] CONSULTon 09-03-2023 CONSULT HNO ID: [id number] Author: NATO RIVERA MD Service: Clinical Cardiology [...] Prior cardiac hx: - Severe CAD ([facility] showed severe single vessel proximal to mid LAD diffuse disease in [place], sent to [facility] for consideration of high risk PCI [...] echocardiographic exam performed on 03/10/2017 (ECHO) [facility] 12/2017: 1. Single-vessel coronary artery disease with a long segment of severe diffuse narrowing in the proximal and midportion of the LAD. Another stenosis in the distal portion. 2. Normal right and circumflex coronary arteries. 3. Normal left heart filling pressures. 4. No evidence of aortic stenosis. 5. The patient will be transferred to [facility] for assessment of myocardial viability and [...] 11.2 06/08/19 (more content not included)... Normal [facility] HIGH SENSITIVITY TROPONIN T (SECOND)on 09-03-2023 Troponin T.cardiac High sensitivity method [Mass/Vol] 51 ng/L High <12 [facility] Comment on above: Order Comment: Speci men Type: BLOOD SPECIMEN Ordering Facility: [facility] Address: [address] [place] [address] Result Comment: When assessing risk for acute [...] 30 day MACE. Performed By: #### L [id number] #### [facility] CLIA [id number] [address] [facility] HIGH SENSITIVITY TROPONIN T (THIRD) 3 HRS AFTER INITIALon 09-03-2023 Troponin T.cardiac High sensitivity method [Mass/Vol] 63 ng/L High <12 [facility] Comment on above: Order Comment: Speci men Type: BLOOD SPECIMEN Ordering Facility: [facility] Address: [address] [place] [address] Result Comment: When assessing risk for acute [...] MACE. Performed By: #### 5 8410-2 #### [facility] CLIA [id number] [address] OPERATIVE NOon 09-03-2023 OPERATIVE NO HNO ID: [id number] Author: DIYA MAY MD Service: Orthopaedic Surgery Author Type: Physician Type: Operative Report Filed: 09/03/2023 17:02 Note Text: OPERATIVE/PROCEDURE REPORT LOG ID: [id number] SURGERY/PROCEDURE DATE: 09/03/2023 INCISION/PROCEDURE START TIME: 12:41 PM INCISION CLOSE/PROCEDURE END TIME: 1:21 PM SURGEON(S)/PROCEDURALIST( S) AND SECURITIES CONSULTANT(S): Surgeon(s) and Role: * Diya May MD - Primary * Juancarlos Eldridge MD - Resident - Assisting * Jerry Murray MD - Resident - Assisting No Additional Staff PRE-OP/PRE-PROCEDURE DIAGNOSIS: 1) Right intertrochanteric femur fracture POST-OP/POST-PROCEDURE DIAGNOSIS: 1) Same SURGERY/PROCEDURE(S): 1) Insertion of a Right Hip Intramedullary Femoral Nail for an Intertrochanteric Femur Fracture (CPT 96577) ANESTHESIA: 1) Choice - Anesthesia Consult ANTIBIOTICS: 1) Ancef 2g IV Ancef, 1g IV Vancomycin ESTIMATED BLOOD LOSS: 1) 100 CC SPECIMENS: 1) None CLINICAL INDICATIONS: 53 year old female presented to [facility] for evaluation after a fall. The patient [...] time-out was then conducted in accordance with [facility] General policy. Incision along hip was [...] Implant Name Type Inv. Item Serial No. Feather Sawyer Lot No. LRB No. Used Action NAIL TFN-ADVANCED 125D SHORT GREEN TITANIUM 170MM INTRAMEDULLARY CANNULATED - [id number] Nail NAIL TFN-ADVANCED 125D SHORT GREEN TITANIU (more content not included)... Normal [facility] THERAPY NTon 09-03-2023 THERAPY NT HNO ID: [id number] Author: LEWIS CARPIO OTR/Gian Service: Occupational Therapy Author Type: Occupational Therapist Type: Therapy (PT/OT/Speech/Resp) Filed: 09/03/2023 07:59 Note Text: OCCUPATIONAL THERAPY MISSED VISIT SERVICE DATE: 09/03/2023 SERVICE TIME: (P) 0759 ROOM: [place] [address] Patient not seen due to (P) Test / Procedure. OR today, will follow. SIGNATURE: LARRY Crocker/Gian PATIENT NAME: Trenton Jackson DATE: September 03, 2023 TIME: 7:59 AM Normal [facility] XR HIP 2V AP/LAT RTon 2023 XR HIP 2V AP/LAT RT * * *Final Report* * * DATE OF EXAM: Sep 03 2023 1:16PM [facility] 5280 - XR HIP 2V AP/LAT [...] reduction internal fixation right intertrochanteric femur fracture. Life Sciences Director: GEORGE Transcribe Date/Time: Sep 03 2023 1:33P [...] internal fixation of right intertrochanteric femur fracture. Life Sciences Director: [facility] Transcribe Date/Time: Sep 03 2023 2:42P Dictated by : JIMY ROMERO MD This examination was interpreted and the report reviewed and electronically signed by: JIMY ROMERO MD on Sep 03 2023 2:43PM EST [id number] [facility] ALLIED HEALTHon 09-02-2023 ALLIED HEALTH HNO ID: [id number] Author: TERE HORNER Chaplain Service: ? Author Type: Sand Temperer Type: Allied Health Filed: 09/02/2023 11:46 Note Text: SPIRITUAL CARE PROGRESS NOTE SERVICE DATE: 09/02/2023 SERVICE TIME: 11:45 am Sand Temperer called ED upon receiving page to inquire about family of patient. No family were present at the time. Should needs arise for patient or family, please call spiritual care. To contact the Spiritual Care Department: Please call [phone]. SIGNATURE: Chaplain Christiano PATIENT NAME: Trenton Jackson DATE: September 02, 2023 TIME: 11:45 AM PAGER/CONTACT #: [phone] Normal [facility] Absolute lymphocyte countOrd ered By: Griselda Christina on 09-02-2023 Lymphocytes Auto (Unsp spec) [#/Vol] 1.79 10*3/uL 0.83-4.51 [facility] Activated partial thrombopla stin time (aPTT) in platelet poor plasma by coagulation aOrdered By: Griselda Christina on 09-02-2023 aPTT Coag (PPP) [Time] 25.5 s 24.1-36.2 [facility] Automated lymphocyte count a s percentage of total leukocytesOrdered By: Griselda Christina on 09-02-2023 Lymphocytes/100 WBC Auto (Unsp spec) 18.9 % 19-41 [facility] Basophil percentageOrdered B y: Griselda Christina on 09-02-2023 Basophils/100 WBC (Bld) 0.7 % 0-1 [place] Chloride [Moles/Vol] 102 mmol/L 98-107 [facility] Eosinophils/100 WBC (Bld) 3.9 % 0-5 [facility] Glucose [Mass/Vol] 306 mg/dL 74-106 [facility] Comment on above: Glucose result great er than or equal to 200 mg/dLsuggests DIABETES MELLITUS per A.D.A. criteria. Hemoglobin (Bld) [Mass/Vol] 14.4 g/dL 12.0-15.0 [facility] Monocytes/100 WBC (Bld) 5.2 % 0-10 [place] Neutrophils (Bld) [#/Vol] 6.5 10*3/uL 2.0-7.7 [facility] Neutrophils/100 WBC (Bld) 69.1 % 47-70 [facility] Potassium [Moles/Vol] 3.3 mmol/L 3.5-5.1 [facility] Sodium [Moles/Vol] 136 mmol/L 136-145 [facility] WBC (Bld) [#/Vol] 9.5 10*3/uL 4.4-11.0 [facility] CBC panel Auto (Bld)on 09-01 Erythrocyte distribution width (RBC) [Ratio] 13.6 % Normal 11.5-15.0 [facility] Comment on above: Order Comment: Speci men Type: BLOOD SPECIMEN Ordering Facility: [facility] Address: [address] [place] [address] Performed By: #### 2 4321-2 #### [facility] CLIA [id number] [address] Hematocrit (Bld) [Volume fraction] 42.9 % Normal 36.0-46.0 [facility] Comment on above: Order Comment: Speci men Type: BLOOD SPECIMEN Ordering Facility: [facility] Address: [address] [place] [address] Performed By: #### 2 4321-2 #### [facility] CLIA [id number] [address] Hemoglobin (Bld) [Mass/Vol] 14.4 g/dL Normal 11.5-15.5 [facility] Comment on above: Order Comment: Speci men Type: BLOOD SPECIMEN Ordering Facility: [facility] Address: [address] [place] [address] Performed By: #### 2 4321-2 #### [facility] CLIA [id number] [address] MCH (RBC) [Entitic mass] 26.7 pg Normal 26.0-34.0 [facility] Comment on above: Order Comment: Speci men Type: BLOOD SPECIMEN Ordering Facility: [facility] Address: [address] [place] [address] Performed By: #### 2 4321-2 #### [facility] CLIA [id number] [address] MCHC (RBC) [Mass/Vol] 33.6 g/dL Normal 30.5-36.0 [facility] Comment on above: Order Comment: Speci men Type: BLOOD SPECIMEN Ordering Facility: [facility] Address: [address] [place] [address] Performed By: #### 2 4321-2 #### [facility] CLIA [id number] [address] [place] MCV (RBC) [Entitic vol] 79.4 fL Low 80.0-100.0 [facility] Comment on above: Order Comment: Speci men Type: BLOOD SPECIMEN Ordering Facility: [facility] Address: [address] [place] [address] Performed By: #### 2 4321-2 #### [facility] CLIA [id number] [address] Nucleated RBC (Bld) [#/Vol] 10*3/uL Normal <0.01 [facility] Comment on above: Order Comment: Speci men Type: BLOOD SPECIMEN Ordering Facility: [facility] Address: [address] [place] [address] Performed By: #### 2 4321-2 #### [facility] CLIA [id number] [address] [place] Platelet mean volume (Bld) [Entitic vol] 9.2 fL Normal 9.0-12.7 [facility] Comment on above: Order Comment: Speci men Type: BLOOD SPECIMEN Ordering Facility: [facility] Address: [address] [place] [address] Performed By: #### 2 1-2 #### [facility] CLIA [id number] [address] [place] Platelets (Bld) [#/Vol] 172 10*3/uL Normal 150-400 [facility] Comment on above: Order Comment: Speci men Type: BLOOD SPECIMEN Ordering Facility: [facility] Address: [address] [place] [address] Performed By: #### 2 1-2 #### [facility] CLIA [id number] [address] [place] RBC (Bld) [#/Vol] 5.40 10*6/uL High 3.90-5.20 [facility] Comment on above: Order Comment: Speci men Type: BLOOD SPECIMEN Ordering Facility: [facility] Address: [address] [place] [address] Performed By: #### 2 4321-2 #### [facility] CLIA [id number] [address] OF [facility] WBC (Bld) [#/Vol] 15.50 10*3/uL High 3.70-11.00 [facility] Comment on above: Order Comment: Speci men Type: BLOOD SPECIMEN Ordering Facility: [facility] Address: [address] [place] [address] Performed By: #### 2 4321-2 #### [facility] CLIA [id number] [address] CONSULTon 09-02-2023 CONSULT HNO ID: [id number] Author: DIYA MAY MD Service: Orthopaedic Surgery [...] 11:07 AM ORTHOPAEDIC SURGERY CONSULT Pt: TRENTON JACKSON Physician consulted: Dr. May Chief Complaint: Right Hip Pain HPI: 53 year old female presented as a level II trauma activation to [facility] ED as a transfer from [place] ED on 09/02/2023 for evaluation of right hip pain. The patient endorses a ground level fall in her bathroom with subsequent immediate and severe right hip pain and the inability to ambulate. She was brought to [place] ED and was found to have a [...] units 3 (more content not included)... Normal [facility] CT ABD/PEL W IVCONon 024 CT ABD/PEL W IVCON * * *Final Report* * * DATE OF EXAM: Sep 02 2023 11:41AM [facility] 0530 - CT ABD/PEL W [...] thorax: A CT chest is reported separately. Encephalographer (topogram) images: No additional findings. IMPRESSION: Right-sided [...] be communicated with the ordering provider via [employer] staff message or phone message by [employer] within 2 business days of report finalization. --END OF FINDING-- Life Sciences Director: GEORGE Transcribe Date/Time: Sep 02 2023 12:26P Dictated by : TORITO PARK MD This examination was interpreted and the report reviewed and electronically signed by: TORITO PARK MD on Sep 02 2023 1:00PM EST [id number] ACTIONABLE Invalid Interpretation Code [facility] CT BRAIN WO IVCONon 09-02-19 CT BRAIN WO IVCON * * *Final Report* * * DATE OF EXAM: Sep 02 2023 11:39AM [facility] 0504 - CT BRAIN WO IVCON / PROCEDURE REASON: Head trauma, coagulopathy (Age 19-64y) * * * * Physician Interpretation * * * * EXAMINATION: CT CERVICAL SPINE WO IVCON, CT BRAIN WO IVCON CLINICAL HISTORY: Spine fracture, cervical, traumatic (accession [id number]), Head trauma, coagulopathy (Age 19-64y) (accession [id number]) TECHNIQUE: Serial axial images without IV contrast [...] sinuses and mastoid air cells are clear. Encephalographer (topogram) images: Unremarkable. CERVICAL SPINE: Counting reference: Craniocervical junction. Anatomic Variants: None. Encephalographer (topogram) images: Unremarkable. Alignment: Alignment is anatomic. [...] vertebrae with counting from the craniocervical junction. Life Sciences Director: PSCB Transcribe Date/Time: Sep 02 2023 11:52A Dictated by : RAYMUNDO MULLINS MD This examination was interpreted and the report reviewed and electronically signed by: RAYMUNDO MULLINS MD on Sep 02 2023 12:19PM EST [id number] Normal [facility] CT CERVICAL SPINE WO IVCONon 09-02-2023 CT CERVICAL SPINE WO IVCON * * *Final Report* * * DATE OF EXAM: Sep 02 2023 11:39AM [facility] 0505 - CT CERVICAL SPINE WO IVCON / PROCEDURE REASON: Spine fracture, cervical, traumatic * * * * Physician Interpretation * * * * EXAMINATION: CT CERVICAL SPINE WO IVCON, CT BRAIN WO IVCON CLINICAL HISTORY: Spine fracture, cervical, traumatic (accession [id number]), Head trauma, coagulopathy (Age 19-64y) (accession [id number]) TECHNIQUE: Serial axial images without IV contrast [...] sinuses and mastoid air cells are clear. Encephalographer (topogram) images: Unremarkable. CERVICAL SPINE: Counting reference: Craniocervical junction. Anatomic Variants: None. Encephalographer (topogram) images: Unremarkable. Alignment: Alignment is anatomic. [...] vertebrae with counting from the craniocervical junction. Life Sciences Director: GEORGE Transcribe Date/Time: Sep 02 2023 11:52A Dictated by : RAYMUNDO MULLINS MD This examination was interpreted and the report reviewed and electronically signed by: RAYMUNDO MULLINS MD on Sep 02 2023 12:19PM EST [id number] Normal [facility] CT CHEST W IVCONon 4 CT CHEST W IVCON * * *Final Report* * * DATE OF EXAM: Sep 02 2023 11:41AM [facility] 0539 - CT CHEST W IVCON / [...] abdomen: A CT abdomen is reported separately. Encephalographer (topogram) images: No additional findings. IMPRESSION: Findings suggesting mild pulmonary edema. Similar small and mild prominent mediastinal and hilar lymph nodes considered likely reactive. Appropriate follow-up is recommended as indicated. Similar nodular densities seen in profile with the left major fissure. Small pericardial effusion. Stable left pericardial cyst. Life Sciences Director: GEORGE Transcribe Date/Time: Sep 02 2023 12:42P Dictated by : TORITO PARK MD This examination was interpreted and the report reviewed and electronically signed by: TORITO PARK MD on Sep 02 2023 1:00PM EST [id number] Normal [facility] Comprehensive metabolic 2000 panelon 09-02-2023 Albumin [Mass/Vol] 3.5 g/dL Low 3.9-4.9 [facility] Comment on above: Order Comment: Speci men Type: BLOOD SPECIMEN Ordering Facility: [facility] Address: [address] [place] [address] Performed By: #### 5 8410-2 #### [facility] CLIA [id number] [address] STATES [place] [facility] ALP [Catalytic activity/Vol] 119 U/L Normal 34-123 [facility] Comment on above: Order Comment: Speci men Type: BLOOD SPECIMEN Ordering Facility: [facility] Address: [address] [place] [address] Performed By: #### 5 8410-2 #### [facility] CLIA [id number] [address] [place] ALT With P-5'-P [Catalytic activity/Vol] 20 U/L Normal 7-38 [facility] Comment on above: Order Comment: Speci men Type: BLOOD SPECIMEN Ordering Facility: [facility] Address: [address] [place] [address] Performed By: #### 5 8410-2 #### [facility] CLIA [id number] [address] [place] [facility] Anion gap [Moles/Vol] 13 mmol/L Normal 9-18 [facility] Comment on above: Order Comment: Speci men Type: BLOOD SPECIMEN Ordering Facility: [facility] Address: [address] [place] [address] Performed By: #### 5 8410-2 #### [facility] CLIA [id number] [address] [place] AST With P-5'-P [Catalytic activity/Vol] 21 U/L Normal 13-35 [facility] Comment on above: Order Comment: Speci men Type: BLOOD SPECIMEN Ordering Facility: [facility] Address: [address] [place] [address] Performed By: #### 5 8410-2 #### [facility] CLIA [id number] [address] [place] [address] [place] Bilirubin [Mass/Vol] 0.8 mg/dL Normal 0.2-1.3 [facility] Comment on above: Order Comment: Speci men Type: BLOOD SPECIMEN Ordering Facility: [facility] Address: [address] [place] [address] Performed By: #### 5 8410-2 #### [facility] CLIA [id number] [address] [place] Calcium [Mass/Vol] 9.0 mg/dL Normal 8.5-10.2 [facility] Comment on above: Order Comment: Speci men Type: BLOOD SPECIMEN Ordering Facility: [facility] Address: [address] [place] [address] Performed By: #### 5 8410-2 #### [facility] CLIA [id number] [address] [place] [address] [place] Chloride [Moles/Vol] 94 mmol/L Low 97-105 [facility] Comment on above: Order Comment: Speci men Type: BLOOD SPECIMEN Ordering Facility: [facility] Address: [address] [place] [address] Performed By: #### 5 8410-2 #### [facility] CLIA [id number] [address] [place] [address] [place] CO2 [Moles/Vol] 28 mmol/L Normal 22-30 [facility] Comment on above: Order Comment: Speci men Type: BLOOD SPECIMEN Ordering Facility: [facility] Address: [address] [place] [address] Performed By: #### 5 8410-2 #### [facility] CLIA [id number] [address] [place] [facility] Creatinine [Mass/Vol] 0.56 mg/dL Low 0.58-0.96 [facility] Comment on above: Order Comment: Speci men Type: BLOOD SPECIMEN Ordering Facility: [facility] Address: [address] [place] [address] Performed By: #### 5 8410-2 #### [facility] CLIA [id number] [address] Creatinine and Glomerular filtration rate.predicted panel (S/P/Bld) 110 mL/min/1.73m??? Normal >=60 [facility] Comment on above: Order Comment: Speci men Type: BLOOD SPECIMEN Ordering Facility: [facility] Address: [address] [place] [address] Result Comment: Crissy mated Glomerular Filtration Rate [...] GFR. Performed By: #### 5 8410-2 #### [facility] CLIA [id number] [address] [place] [address] [place] Glucose [Mass/Vol] 312 mg/dL High 74-99 [facility] Comment on above: Order Comment: Speci men Type: BLOOD SPECIMEN Ordering Facility: [facility] Address: [address] [place] [address] Result Comment: The [place] Diabetes Association (ADA) provides guidance for cutoff [...] Standards of Medical Care in Diabetes 2016, [place] Diabetes Association. Diabetes Care. 2016.39(Suppl 1). Performed By: #### 5 8410-2 #### [facility] CLIA [id number] [address] [place] [address] [place] Potassium [Moles/Vol] 3.7 mmol/L Normal 3.7-5.1 [facility] Comment on above: Order Comment: Speci men Type: BLOOD SPECIMEN Ordering Facility: [facility] Address: [address] [place] [address] Performed By: #### 5 8410-2 #### [facility] CLIA [id number] [address] [place] [address] [place] Protein [Mass/Vol] 7.2 g/dL Normal 6.3-8.0 [facility] Comment on above: Order Comment: Speci men Type: BLOOD SPECIMEN Ordering Facility: [facility] Address: [address] [place] [address] Performed By: #### 5 8410-2 #### [facility] CLIA [id number] [address] [place] Sodium [Moles/Vol] 135 mmol/L Low 136-144 [facility] Comment on above: Order Comment: Speci men Type: BLOOD SPECIMEN Ordering Facility: [facility] Address: [address] [place] [address] Performed By: #### 5 8410-2 #### [facility] CLIA [id number] [address] [place] [address] [place] Urea nitrogen [Mass/Vol] 5 mg/dL Low 7-21 [facility] Comment on above: Order Comment: Speci men Type: BLOOD SPECIMEN Ordering Facility: [facility] Address: [address] [place] [address] Performed By: #### 5 8410-2 #### [facility] CLIA [id number] [address] [place] [address] [place] Determination of erythrocyte mean corpuscular volume (MCV)Ordered By: Griselda Christina on 09-02-2023 MCV (RBC) [Entitic vol] 79.9 fL 81-99 [facility] ECG COMPLETEon 09-02-2023 ECG COMPLETE Ventricular Rate : 1 09 BPM Atrial Rate : 109 BPM P-R Interval : 168 ms QRS Duration : 128 ms Q-T Interval : 364 ms QTC Calculation(Bazett) : 490 ms Calculated P Reserve : 46 degrees Calculated R Reserve : -45 degrees Calculated T Reserve : 97 degrees SINUS TACHYCARDIA POSSIBLE LEFT ATRIAL ENLARGEMENT LEFT AXIS DEVIATION LEFT VENTRICULAR HYPERTROPHY WITH QRS WIDENING ( [place] product ) CANNOT RULE OUT SEPTAL INFARCT , AGE UNDETERMINED T WAVE ABNORMALITY, CONSIDER LATERAL ISCHEMIA ABNORMAL ECG NO PREVIOUS ECGS AVAILABLE Confirmed by WELLINGTON SPANN ([id number]) on 02/27/2024 5:10:44 PM NAME : TRENTON JACKSON PID : [id number] : 1970 Gender : Female Race : ORD : [id number] Procedure Date : Sep 02 2023 12:10:42 Edit Date : Feb 27 2024 17:10:48 Diagnosis: SINUS TACHYCARDIA POSSIBLE LEFT ATRIAL ENLARGEMENT LEFT AXIS DEVIATION LEFT VENTRICULAR HYPERTROPHY WITH QRS WIDENING ( Brian product ) CANNOT RULE OUT SEPTAL INFARCT , AGE UNDETERMINED T WAVE ABNORMALITY, CONSIDER LATERAL ISCHEMIA ABNORMAL ECG NO PREVIOUS ECGS AVAILABLE Confirmed by WELLINGTON SPANN ([id number]) on 02/27/2024 5:10:44 PM Test Reason : Chest Pain Location : 4 : [facility] Overread By : WELLINGTON SPANN Edited By : WELLINGTON SPANN Referred By : , Acquired by : VIKTOR ART [facility] ED NOTEon 09-02-2023 ED NOTE HNO ID: [id number] Author: TESS LA RN Service: Emergency Medicine Author Type: Registered Nurse Type: ED Notes Filed: 09/02/2023 13:10 Note Text: Unable to obtain blood draw, aware. [facility] ED NOTE HNO ID: [id number] Author: TESS LA RN Service: Emergency Medicine Author Type: Registered Nurse Type: ED Notes Filed: 09/02/2023 12:53 Note Text: Resident aware of need for pain and nausea meds per pt request Normal [facility] ED NOTE HNO ID: [id number] Author: TESS LA RN Service: Emergency Medicine Author Type: Registered Nurse Type: ED Notes Filed: 09/02/2023 12:19 Note Text: Trauma rns unable to obtain blood, US verified RN able to place US PIV at this time. Normal [facility] ED NOTE HNO ID: [id number] Author: TESS LA, CHAYITO Service: Emergency Medicine Author Type: Registered Nurse Type: ED Notes Filed: 09/02/2023 11:56 Note Text: Ortho MD at bedside Normal [facility] ED NOTE HNO ID: [id number] Author: MILADIS ESPINOSA, CHAYITO Service: ? Author Type: Registered Nurse Type: ED Notes Filed: 09/02/2023 11:38 Note Text: Bed: 19-ED Expected date: Expected time: Means of arrival: Comments: T2 Normal [facility] ED NOTE HNO ID: [id number] Author: PENNIE MEDINA RN Service: Emergency Medicine Author Type: Registered Nurse Type: ED Notes Filed: 09/02/2023 11:22 Note Text: To CT Normal [facility] ED NOTE HNO ID: [id number] Author: PENNIE MEDINA RN Service: Emergency Medicine Author Type: Registered Nurse Type: ED Notes Filed: 09/02/2023 11:22 Note Text: Blood bank and OR called Normal [facility] Erythrocyte distribution wid th ratioOrdered By: Griselda Christina on 09-02-2023 Erythrocyte distribution width (RBC) [Ratio] 13.7 % 11.6-14.6 [facility] Erythrocyte distribution wid th standard deviationOrdered By: Griselda Christina on 09-02-2023 Erythrocyte distribution width (RBC) [Entitic vol] 39.7 fL 35.1-43.9 [facility] Ethanol SerPl-mCncon 024 Ethanol [Mass/Vol] mg/dL Normal <11 [facility] Comment on above: Order Comment: Speci men Type: BLOOD SPECIMEN Ordering Facility: [facility] Address: [address] [place] [address] Performed By: #### 5 8410-2 #### [facility] CLIA [id number] [address] HCG QUAL BLDon 09-02-2023 HCG, QUALITATIVE Negative Normal Negative [facility] Comment on above: Order Comment: Speci men Type: BLOOD SPECIMEN Ordering Facility: [facility] Address: [address] [place] [address] Performed By: #### 2 4321-2 #### [facility] CLIA [id number] [address] HIGH SENSITIVITY TROPONIN T (INITIAL)on 09-02-2023 Troponin T.cardiac High sensitivity method [Mass/Vol] 40 ng/L High <12 [facility] Comment on above: Order Comment: Speci men Type: BLOOD SPECIMEN Ordering Facility: [facility] Address: [address] [place] [address] Result Comment: When assessing risk for acute [...] MACE. Performed By: #### 2 4321-2 #### [facility] CLIA [id number] [address] HISTORY PHYSICALon HISTORY PHYSICAL HNO ID: [id number] Author: FREDA MACEDO MD Service: General Surgery [...] Xarelto although patient denies), HTN, HLD, GERD, DE, RA, seizures, GWYN, tobacco abuse, polysubstance abuse, prior incisional hernia repair, who presents as trauma transfer from [place]. Per EMS, patient feel on the wet bathroom and landed on her right hip. GCS at Scene was 15. On arrival, patient is moaning in pain. She is neurologically intact and HDS. She has obvious pain to the right hip. At [place], CXR and PXR showed chronic CHF and [...] No o (more content not included)... Normal [facility] Hematocrit Auto (Bld) [Volum e fraction]Ordered By: Griselda Christina on 09-02-2023 Hematocrit (Bld) [Volume fraction] 44.5 % 37-47 [facility] Immature granulocytes/100 WB C Auto (Bld)Ordered By: Griselda Christina on 09-02-2023 Immature granulocytes/100 WBC (Bld) 2.200 % 0.0-0.9 [facility] Comment on above: IG% - Immature Granu locytes (promyelocytes, myelocytes and metamyelocytes) > 1% indicates that a LEFT SHIFT is Present. Laboratory - Chemistry and C hemistry - challengeOrdered By: Griselda Christina on 09-02-2023 CO2 [Moles/Vol] 28.0 mmol/L 21.0-32.0 [facility] Urea nitrogen/Creatinine [Mass ratio] 6.6 mg/mg 10-20 [facility] Laboratory - CoagulationOrde red By: Griselda Christina on 09-02-2023 INR Coag (Bld) [Relative time] 0.9 {INR} [facility] PT Coag (PPP) [Time] 11.8 s 11.7-14.9 [facility] Laboratory - Hematology and Cell countsOrdered By: Griselda Christina on 09-02-2023 MCH (RBC) [Entitic mass] 25.9 pg 27.0-32.0 [facility] MCHC (RBC) [Mass/Vol] 32.4 g/dL 32-36 [facility] Nucleated RBC/100 WBC (Bld) [Ratio] 0 % 0-5 [facility] Platelet mean volume (Bld) [Entitic vol] 9.3 fL 6.2-12.0 [facility] Platelets (Bld) [#/Vol] 191 10*3/uL 150-450 [facility] Lipase SerPl-cCncon 09-02-19 24 Lipase [Catalytic activity/Vol] 17 U/L Normal 16-61 [facility] Comment on above: Order Comment: Speci men Type: BLOOD SPECIMEN Ordering Facility: [facility] Address: [address] [place] [address] Performed By: #### 5 8410-2 #### [facility] CLIA [id number] 1 [place] [address] [place] NT-proBNP SerPl-mCncon 09-01 Natriuretic peptide.B prohormone N-Terminal [Mass/Vol] 4315 pg/mL High <125 [facility] Comment on above: Order Comment: Radha tony Type: BLOOD SPECIMEN Ordering Facility: [facility] Address: [address] [place] [address] [place] [address] Performed By: #### 5 8410-2 #### [facility] CLIA [id number] [address] NURSING PROGon 09-02-2023 NURSING PROG HNO ID: [id number] Author: DANI LAGOS, RN Service: Nursing Author Type: Registered Nurse Type: Nursing Progress Note Filed: 09/02/2023 14:35 Note Text: Other: Dr. Kingston made aware that second troponin unable to be obtained due to multiple sticks and IV unable to draw any blood. Normal [facility] No Panel InformationOrdered By: Griselda Christina on 09-02-2023 Estimated Creatinine Clearance Calc 97.60 ml/min [facility] Estimated GFR (MDRD) Amer 102 mL/min >60 [facility] Comment on above: GFR Calc Estimated GFR (MDRD) Non-Af Amer 85 mL/min >60 [facility] Comment on above: Non- GFR Calc PT panel Coag (PPP)on 2023 INR Coag (PPP) [Relative time] 1.0 {INR} Normal 0.9-1.3 [facility] Comment on above: Order Comment: Radha tony Type: BLOOD SPECIMEN Ordering Facility: [facility] Address: [address] [place] [address] Result Comment: Charissa min K Antagonist (VKA) Therapeutic Range: INR 2 to 3 (Target INR of 2.5) Note: For patients treated with VKA drugs, such as warfarin, the [place] [employer] 2012 Guideline recommends [...] to 3.5 (target INR of 3). Rowan MATEHW, et al. Chest 2012, 141:7S-47S Sampson SOMMERS et al. [facility] 2017, 70: 252-289 Performed By: #### 3 4528-0, 23023-5 #### [facility] CLIA [id number] [address] [place] PT Coag (PPP) [Time] 10.3 s Normal 9.7-13.0 [facility] Comment on above: Order Comment: Speci men Type: BLOOD SPECIMEN Ordering Facility: [facility] Address: [address] [place] [address] [place] [address] Performed By: #### 3 4528-0, 15116-1 #### [facility] CLIA [id number] [address] [place] [id number] [place] RBC Auto (Bld) [#/Vol]Ordere d By: Griselda Christina on 09-02-2023 RBC (Bld) [#/Vol] 5.57 10*6/uL 4.2-5.4 [facility] Serum or plasma calcium xiomara urement (mass/volume)Ordered By: Griselda Christina on 09-02-2023 Calcium [Mass/Vol] 9.1 mg/dL 8.5-10.1 [facility] Serum or plasma creatinine m easurement (mass/volume)Ordered By: Griselda Christina on 09-02-2023 Creatinine [Mass/Vol] 0.76 mg/dL 0.55-1.02 [facility] Comment on above: The validity of the calculated GFR & GFRAA in patients over 70 years has not been determined. Clinical correlation is essential. Serum or plasma urea nitroge n measurement (mass/volume)Ordered By: Griselda Christina on 09-02-2023 Urea nitrogen [Mass/Vol] 5 mg/dL 7-18 [facility] TOX SCREEN ROUT URon 024 Amphetamines Confirm (U) [Mass/Vol] Negative Normal Negative [facility] Comment on above: Order Comment: Speci men Type: URINE SPECIMEN Ordering Facility: [facility] Address: [facility] [place] [address] Result Comment: Cuto ff threshold at 1000 ng/mL. Performed By: #### U TOX2 #### [facility] CLIA [id number] [address] BARBITURATES, URINE Negative Normal Negative [facility] Comment on above: Order Comment: Speci men Type: URINE SPECIMEN Ordering Facility: [facility] Address: [address] [place] [address] Result Comment: Cuto ff threshold at 200 ng/mL. Performed By: #### U TOX2 #### [facility] CLIA [id number] [address] [place] BENZODIAZEPINES, UR Negative Normal Negative [facility] Comment on above: Order Comment: Speci men Type: URINE SPECIMEN Ordering Facility: [facility] Address: [address] [place] [address] Result Comment: Cuto ff threshold at 200 ng/mL. Performed By: #### U TOX2 #### [facility] CLIA [id number] [address] Cannabinoids Screen Ql (U) Positive Abnormal Negative [facility] Comment on above: Order Comment: Speci men Type: URINE SPECIMEN Ordering Facility: [facility] Address: [address] [place] [address] Result Comment: Cuto ff threshold at 50 ng/mL. Performed By: #### U TOX2 #### [facility] CLIA [id number] [address] [place] Cocaine Ql (U) Negative Normal Negative [facility] Comment on above: Order Comment: Speci men Type: URINE SPECIMEN Ordering Facility: [facility] Address: [address] [place] [address] Result Comment: Cuto ff threshold at 300 ng/mL. Performed By: #### U TOX2 #### [facility] CLIA [id number] [address] [place] Ethanol (U) [Mass/Vol] <11 Normal <11 [place] Comment on above: Order Comment: Speci men Type: URINE SPECIMEN Ordering Facility: [facility] Address: [address] [place] [address] Performed By: #### U TOX2 #### [facility] CLIA [id number] [address] Opiates Screen Ql (U) Positive Abnormal Negative [facility] Comment on above: Order Comment: Speci men Type: URINE SPECIMEN Ordering Facility: [facility] Address: [address] [place] [address] Result Comment: Cuto ff threshold at 300 ng/mL. Performed By: #### U TOX2 #### [facility] CLIA [id number] [address] oxyCODONE cutoff Screen (U) [Mass/Vol] Negative Normal Negative [facility] Comment on above: Order Comment: Speci men Type: URINE SPECIMEN Ordering Facility: [facility] Address: [address] [place] [address] Result Comment: Cuto ff threshold at 100 ng/mL. Performed By: #### U TOX2 #### [facility] CLIA [id number] [address] Phencyclidine Ql (U) Negative Normal Negative [facility] Comment on above: Order Comment: Speci men Type: URINE SPECIMEN Ordering Facility: [facility] Address: [address] [place] [address] Result Comment: Cuto ff threshold at 25 ng/mL. Performed By: #### U TOX2 #### [facility] CLIA [id number] [address] OF [facility] TYPE + SCREENon 09-02-2023 ABO O Normal [facility] Comment on above: Order Comment: Speci men Type: BLOOD SPECIMEN Ordering Facility: [facility] Address: [address] [place] [address] Performed By: #### 5 8410-2 #### [facility] CLIA [id number] [address] HISTORICAL AB SCR STATUS Negative Normal [facility] Comment on above: Order Comment: Speci men Type: BLOOD SPECIMEN Ordering Facility: [facility] Address: [address] [place] [address] Performed By: #### 5 8410-2 #### [facility] CLIA [id number] [address] [place] Rh Nom (Bld) Positive Normal [facility] Comment on above: Order Comment: Speci men Type: BLOOD SPECIMEN Ordering Facility: [facility] Address: [address] [place] [address] Performed By: #### 5 8410-2 #### [facility] CLIA [id number] [address] TYPE AND SCREEN EXPIRATION 09/05/2023 23:59 Normal [facility] Comment on above: Order Comment: Speci men Type: BLOOD SPECIMEN Ordering Facility: [facility] Address: [address] [place] [address] Performed By: #### 5 8410-2 #### [facility] CLIA [id number] [address] OF [facility] Thin prep Papanicolaou smear with manual screeningOrdered By: Griselda Christina on 09-02-2023 Thin prep Papanicolaou smear with manual screening 6 5-15 [facility] Urinalysis complete panel (U )on 09-02-2023 Bacteria LM.HPF (Urine sed) [#/Area] Rare Abnormal None Seen [facility] Comment on above: Order Comment: Speci men Type: URINE SPECIMEN Ordering Facility: [facility] Address: [address] [place] [address] Performed By: #### 2 4356-8 #### [facility] CLIA [id number] [address] [place] Bilirubin Ql (U) Negative Normal Negative [facility] Comment on above: Order Comment: Speci men Type: URINE SPECIMEN Ordering Facility: [facility] Address: [address] [place] [address] Performed By: #### 2 4356-8 #### [facility] CLIA [id number] [address] [place] Clarity (Unsp spec) Clear Normal Clear [facility] Comment on above: Order Comment: Speci men Type: URINE SPECIMEN Ordering Facility: [facility] Address: [address] [place] [address] Performed By: #### 2 4356-8 #### [facility] CLIA [id number] [address] [place] Color (U) Light Yellow Normal yellow [facility] Comment on above: Order Comment: Speci men Type: URINE SPECIMEN Ordering Facility: [facility] Address: [address] [place] [address] Performed By: #### 2 4356-8 #### [facility] CLIA [id number] [address] [place] Glucose Test strip (U) [Mass/Vol] 4+ Abnormal Trace, Negative [facility] Comment on above: Order Comment: Speci men Type: URINE SPECIMEN Ordering Facility: [facility] Address: [address] [place] [address] Performed By: #### 2 4356-8 #### [facility] CLIA [id number] [address] [place] Hemoglobin Ql (U) 3+ Abnormal Negative, Trace [facility] Comment on above: Order Comment: Speci men Type: URINE SPECIMEN Ordering Facility: [facility] Address: [address] [place] [address] Performed By: #### 2 4356-8 #### [facility] CLIA [id number] [address] [place] Ketones Ql (U) Negative Normal Negative, Trace [facility] Comment on above: Order Comment: Speci men Type: URINE SPECIMEN Ordering Facility: [facility] Address: [address] [place] [address] Performed By: #### 2 4356-8 #### [facility] CLIA [id number] [address] Leukocyte esterase Test strip Ql (U) Negative Normal Negative, 25 Jennifer/uL [facility] Comment on above: Order Comment: Speci men Type: URINE SPECIMEN Ordering Facility: [facility] Address: [address] [place] [address] Performed By: #### 2 4356-8 #### [facility] CLIA [id number] [address] Nitrite Ql (U) Negative Normal Negative [facility] Comment on above: Order Comment: Speci men Type: URINE SPECIMEN Ordering Facility: [facility] Address: [address] [place] [address] Performed By: #### 2 4356-8 #### [facility] CLIA [id number] [address] pH (U) 6.5 [pH] Normal 5.0-8.0 [facility] Comment on above: Order Comment: Speci men Type: URINE SPECIMEN Ordering Facility: [facility] Address: [address] [place] [address] Performed By: #### 2 4356-8 #### [facility] CLIA [id number] [address] Protein (U) [Mass/Vol] 2+ Abnormal Trace , Negative [facility] Comment on above: Order Comment: Speci men Type: URINE SPECIMEN Ordering Facility: [facility] Address: [address] [place] [address] Performed By: #### 2 4356-8 #### [facility] CLIA [id number] [address] RBC LM.HPF (Urine sed) [#/Area] /[HPF] Abnormal 0-3 /HPF [facility] Comment on above: Order Comment: Speci men Type: URINE SPECIMEN Ordering Facility: [facility] Address: [address] [place] [address] Performed By: #### 2 4356-8 #### [facility] CLIA [id number] [address] [place] Specific gravity (U) [Rel density] >1.040 High 1.005-1.03 0 [facility] Comment on above: Order Comment: Speci men Type: URINE SPECIMEN Ordering Facility: [facility] Address: [address] [place] [address] Performed By: #### 2 4356-8 #### [facility] CLIA [id number] [address] [place] Urobilinogen Ql (U) Normal Normal Normal [facility] Comment on above: Order Comment: Speci men Type: URINE SPECIMEN Ordering Facility: [facility] Address: [address] [place] [address] Performed By: #### 2 4356-8 #### [facility] CLIA [id number] [address] WBC LM.HPF (Urine sed) [#/Area] 0-5 /HPF Normal 0-5 /HPF [facility] Comment on above: Order Comment: Speci men Type: URINE SPECIMEN Ordering Facility: [facility] Address: [address] [place] [address] Performed By: #### 2 4356-8 #### [facility] CLIA [id number] [address] [place] XR FEMUR 2V AP/LAT [...] angulated intratrochanteric fracture of the right hip Life Sciences Director: GEORGE Transcribe Date/Time: Sep 02 2023 5:30P Dictated by : MEKA TAYLOR MD This examination was interpreted and the report reviewed and electronically signed by: MEKA TAYLOR MD on Sep 02 2023 5:32PM EST [id number] Normal [facility] aPTT PPPon 09-02-2023 aPTT Coag (PPP) [Time] 26.2 s Normal 23.0-32.4 [place] Comment on above: Order Comment: Speci men Type: BLOOD SPECIMEN Ordering Facility: [facility] Address: [address] [place] [address] Performed By: #### 3 4528-0, 62185-2 #### [facility] CLIA [id number] [address] OF [facility] Absolute lymphocyte countOrd ered By: Ananda Coyle on 06-19-2023 Lymphocytes Auto (Unsp spec) [#/Vol] 0.91 10*3/uL 0.83-4.51 [facility] Automated lymphocyte count a s percentage of total leukocytesOrdered By: Ananda Coyle on 06-19-2023 Lymphocytes/100 WBC Auto (Unsp spec) 8.1 % 19-41 [facility] Basophil percentageOrdered B y: Ananda Coyle on 06-19-2023 Basophils/100 WBC (Bld) 0.7 % 0-1 [facility] Chloride [Moles/Vol] 102 mmol/L 98-107 [facility] Eosinophils/100 WBC (Bld) 1.2 % 0-5 [facility] Glucose [Mass/Vol] 205 mg/dL 74-106 [facility] Comment on above: Glucose result great er than or equal to 200 mg/dLsuggests DIABETES MELLITUS per A.D.A. criteria. Hemoglobin (Bld) [Mass/Vol] 13.6 g/dL 12.0-15.0 [facility] Monocytes/100 WBC (Bld) 3.2 % 0-10 [facility] Neutrophils (Bld) [#/Vol] 9.7 10*3/uL 2.0-7.7 [facility] Neutrophils/100 WBC (Bld) 86.3 % 47-70 [facility] Potassium [Moles/Vol] 4.2 mmol/L 3.5-5.1 [facility] Sodium [Moles/Vol] 137 mmol/L 136-145 [facility] WBC (Bld) [#/Vol] 11.2 10*3/uL 4.4-11.0 [facility] Determination of erythrocyte mean corpuscular volume (MCV)Ordered By: Ananda Coyle on 06-19-2023 MCV (RBC) [Entitic vol] 81.2 fL 81-99 [facility] Erythrocyte distribution wid th ratioOrdered By: Ananda Coyle on 06-19-2023 Erythrocyte distribution width (RBC) [Ratio] 14.6 % 11.6-14.6 [facility] Erythrocyte distribution wid th standard deviationOrdered By: Ananda Coyle on 06-19-2023 Erythrocyte distribution width (RBC) [Entitic vol] 42.7 fL 35.1-43.9 [facility] Hematocrit Auto (Bld) [Volum e fraction]Ordered By: Ananda Coyle on 06-19-2023 Hematocrit (Bld) [Volume fraction] 42.7 % 37-47 [facility] Immature granulocytes/100 WB C Auto (Bld)Ordered By: Ananda Coyle on 06-19-2023 Immature granulocytes/100 WBC (Bld) 0.500 % 0.0-0.9 [facility] Comment on above: IG% - Immature Granu locytes (promyelocytes, myelocytes and metamyelocytes) > 1% indicates that a LEFT SHIFT is Present. Laboratory - Chemistry and C hemistry - challengeOrdered By: Ananda Coyle on 06-19-2023 CO2 [Moles/Vol] 27.0 mmol/L 21.0-32.0 [facility] Urea nitrogen/Creatinine [Mass ratio] 16.5 mg/mg 10-20 [facility] Laboratory - Hematology and Cell countsOrdered By: Ananda Coyle on 06-19-2023 MCH (RBC) [Entitic mass] 25.9 pg 27.0-32.0 [facility] MCHC (RBC) [Mass/Vol] 31.9 g/dL 32-36 [facility] Nucleated RBC/100 WBC (Bld) [Ratio] 0 % 0-5 [facility] Platelets (Bld) [#/Vol] 214 10*3/uL 150-450 [facility] No Panel InformationOrdered By: Ananda Coyle on 06-19-2023 Estimated Creatinine Clearance Calc 83.12 ml/min [facility] Estimated GFR (MDRD) Amer 91 mL/min >60 [facility] Comment on above: GFR Calc Estimated GFR (MDRD) Non-Af Amer 75 mL/min >60 [facility] Comment on above: Non- GFR Calc Platelet mean volume Marco-Ec ker (Bld) [Entitic vol]Ordered By: Ananda Coyle on 06-19-2023 Platelet mean volume (Bld) [Entitic vol] 9.9 fL 6.2-12.0 [facility] RBC Auto (Bld) [#/Vol]Ordere d By: Ananda Coyle on 06-19-2023 RBC (Bld) [#/Vol] 5.26 10*6/uL 4.2-5.4 [facility] Serum or plasma calcium xiomara urement (mass/volume)Ordered By: Ananda Coyle on 06-19-2023 Calcium [Mass/Vol] 9.6 mg/dL 8.5-10.1 [facility] Serum or plasma creatinine m easurement (mass/volume)Ordered By: Ananda Coyle on 06-19-2023 Creatinine [Mass/Vol] 0.85 mg/dL 0.55-1.02 [facility] Comment on above: The validity of the calculated GFR & GFRAA in patients over 70 years has not been determined. Clinical correlation is essential. Serum or plasma urea nitroge n measurement (mass/volume)Ordered By: Ananda Coyle on 06-19-2023 Urea nitrogen [Mass/Vol] 14 mg/dL 7-18 [facility] Thin prep Papanicolaou smear with manual screeningOrdered By: Ananda Coyle on 06-19-2023 Thin prep Papanicolaou smear with manual screening 8 5-15 [facility] Basophil percentageOrdered B y: Jeremy Alexander on 06-16-2023 Chloride [Moles/Vol] 105 mmol/L 98-107 [facility] Glucose [Mass/Vol] 65 mg/dL 74-106 [facility] Potassium [Moles/Vol] 3.7 mmol/L 3.5-5.1 [facility] Sodium [Moles/Vol] 139 mmol/L 136-145 [facility] Glucose Glucometer (BldC) [M ass/Vol]Ordered By: Jeremy Alexander on 06-16-2023 Glucose [Mass/Vol] 161 mg/dL 74-106 [facility] Comment on above: MANAGEMENT OF PATIEN T CARE PER NURSING PROTOCOL Laboratory - Chemistry and C hemistry - challengeOrdered By: Jeremy Alexander on 06-16-2023 CO2 [Moles/Vol] 27.0 mmol/L 21.0-32.0 [facility] Urea nitrogen/Creatinine [Mass ratio] 20.9 mg/mg 10-20 [facility] No Panel InformationOrdered By: Jeremy Alexander on 06-16-2023 Estimated Creatinine Clearance Calc 107.78 ml/min [facility] Estimated GFR (MDRD) Amer 119 mL/min >60 [facility] Comment on above: GFR Calc Estimated GFR (MDRD) Non-Af Amer 98 mL/min >60 [facility] Comment on above: Non- GFR Calc Serum or plasma calcium xiomara urement (mass/volume)Ordered By: Jeremy Alexander on 06-16-2023 Calcium [Mass/Vol] 8.9 mg/dL 8.5-10.1 [facility] Serum or plasma creatinine m easurement (mass/volume)Ordered By: Jeremy Alexander on 06-16-2023 Creatinine [Mass/Vol] 0.67 mg/dL 0.55-1.02 [facility] Comment on above: The validity of the calculated GFR & GFRAA in patients over 70 years has not been determined. Clinical correlation is essential. Serum or plasma urea nitroge n measurement (mass/volume)Ordered By: Jeremy Alexander on 06-16-2023 Urea nitrogen [Mass/Vol] 14 mg/dL 7-18 [facility] Thin prep Papanicolaou smear with manual screeningOrdered By: Jeremy Alexander on 06-16-2023 Thin prep Papanicolaou smear with manual screening 7 5-15 [facility] Absolute lymphocyte countOrd ered By: Jeremy Alexander on 06-15-2023 Lymphocytes Auto (Unsp spec) [#/Vol] 1.49 10*3/uL 0.83-4.51 [facility] Basophil percentageOrdered B y: Jeremy Alexander on 06-15-2023 Basophil percentage 4.9 mg/dL 2.5-4.9 [facility] Basophils/100 WBC (Bld) 0.8 % 0-1 [facility] Eosinophils/100 WBC (Bld) 5.7 % 0-5 [facility] Neutrophils (Bld) [#/Vol] 4.0 10*3/uL 2.0-7.7 [facility] Neutrophils/100 WBC (Bld) 61.2 % 47-70 [facility] WBC (Bld) [#/Vol] 6.5 10*3/uL 4.4-11.0 [facility] Blood erythrocytes count (nu mber/volume)Ordered By: Jeremy Alexander on 06-15-2023 RBC (Bld) [#/Vol] 4.70 10*6/uL 4.2-5.4 [facility] Blood hemoglobin measurement (mass/volume)Ordered By: Jeremy Alexander on 06-15-2023 Hemoglobin (Bld) [Mass/Vol] 12.0 g/dL 12.0-15.0 [facility] Blood lymphocytes/100 leukoc ytesOrdered By: Jeremy Alexander on 06-15-2023 Lymphocytes/100 WBC (Bld) 22.9 % 19-41 [facility] Blood monocytes/100 leukocyt esOrdered By: Jeremy Alexander on 06-15-2023 Monocytes/100 WBC (Bld) 8.9 % 0-10 [facility] Blood platelet mean volumeOr dered By: Jeremy Alexander on 06-15-2023 Platelet mean volume (Bld) [Entitic vol] 10.2 fL 6.2-12.0 [facility] Determination of erythrocyte mean corpuscular volume (MCV)Ordered By: Jeremy Alexander on 06-15-2023 MCV (RBC) [Entitic vol] 81.9 fL 81-99 [facility] Hematocrit Auto (Bld) [Volum e fraction]Ordered By: Jeremy Alexander on 06-15-2023 Hematocrit (Bld) [Volume fraction] 38.5 % 37-47 [facility] Laboratory - Chemistry and C hemistry - challengeOrdered By: Jeremy Alexander on 06-15-2023 Magnesium [Mass/Vol] 2.1 mg/dL 1.6-2.6 [facility] Laboratory - Hematology and Cell countsOrdered By: Jeremy Alexander on 06-15-2023 Erythrocyte distribution width (RBC) [Entitic vol] 41.6 fL 35.1-43.9 [facility] Erythrocyte distribution width (RBC) [Ratio] 14.1 % 11.6-14.6 [facility] Immature granulocytes/100 WBC (Bld) 0.500 % 0.0-0.9 [facility] Comment on above: IG% - Immature Granu locytes (promyelocytes, myelocytes and metamyelocytes) > 1% indicates that a LEFT SHIFT is Present. MCH (RBC) [Entitic mass] 25.5 pg 27.0-32.0 [facility] [facility] Nucleated RBC/100 WBC (Bld) [Ratio] 0 % 0-5 [facility] MCHC Auto (RBC) [Mass/Vol]Or dered By: Jeremy Alexander on 06-15-2023 MCHC (RBC) [Mass/Vol] 31.2 g/dL 32-36 [facility] No Panel InformationOrdered By: Jeremy Alexander on 06-15-2023 Troponin I High Sensitivity 17 pg/mL 3.0-54.0 [facility] Comment on above: Please Note: New Junie t Units and Gender Specific Reference Ranges. For more information see Policy Stat Procedure [place] High Sensitivity Troponin (TNIH) and attachments. Platelets bldOrdered By: Kenia Alexander on 06-15-2023 Platelets (Bld) [#/Vol] 201 10*3/uL 150-450 [facility] Absolute lymphocyte countOrd ered By: Riccardo Hillman on 06-12-2023 Lymphocytes Auto (Unsp spec) [#/Vol] 1.61 10*3/uL 0.83-4.51 [facility] Basophil percentageOrdered B y: Riccardo Hillman on 06-12-2023 Basophils/100 WBC (Bld) 1.0 % 0-1 [facility] Chloride [Moles/Vol] 103 mmol/L 98-107 [facility] Eosinophils/100 WBC (Bld) 3.9 % 0-5 [facility] Glucose [Mass/Vol] 272 mg/dL 74-106 [facility] Comment on above: Glucose result great er than or equal to 200 mg/dLsuggests DIABETES MELLITUS per A.D.A. criteria. Neutrophils (Bld) [#/Vol] 5.5 10*3/uL 2.0-7.7 [facility] Neutrophils/100 WBC (Bld) 68.5 % 47-70 [facility] Potassium [Moles/Vol] 4.0 mmol/L 3.5-5.1 [facility] Comment on above: Moderate Hemolysis, Result may be falsely increased. Sodium [Moles/Vol] 136 mmol/L 136-145 [facility] WBC (Bld) [#/Vol] 8.0 10*3/uL 4.4-11.0 [facility] Blood erythrocytes count (nu mber/volume)Ordered By: Riccardo Hillman on 06-12-2023 RBC (Bld) [#/Vol] 4.92 10*6/uL 4.2-5.4 [facility] Blood hemoglobin measurement (mass/volume)Ordered By: Riccardo Hillman on 06-12-2023 Hemoglobin (Bld) [Mass/Vol] 12.7 g/dL 12.0-15.0 [facility] Blood lymphocytes/100 leukoc ytesOrdered By: Riccardo Hillman on 06-12-2023 Lymphocytes/100 WBC (Bld) 20.3 % 19-41 [facility] Blood manual differential co mment interpretation (narrative result)Ordered By: Riccardo Hillman on 06-12-2023 Manual differential comment Main (Bld) [Interp] SCANNED [facility] Comment on above: AUTO DIFF [place] Blood monocytes/100 leukocyt esOrdered By: Riccardo Hillman on 06-12-2023 Monocytes/100 WBC (Bld) 6.0 % 0-10 [facility] Blood platelet mean volumeOr dered By: Riccardo Hillman on 06-12-2023 Platelet mean volume (Bld) [Entitic vol] 11.3 fL 6.2-12.0 [facility] Determination of erythrocyte mean corpuscular volume (MCV)Ordered By: Riccardo Hillman on 06-12-2023 MCV (RBC) [Entitic vol] 81.3 fL 81-99 [facility] Hematocrit Auto (Bld) [Volum e fraction]Ordered By: Riccardo Hillman on 06-12-2023 Hematocrit (Bld) [Volume fraction] 40.0 % 37-47 [facility] INR in Blood by Coagulation assayOrdered By: Riccardo Hillman on 06-12-2023 INR Coag (Bld) [Relative time] 1.0 {INR} [facility] Laboratory - Chemistry and C hemistry - challengeOrdered By: Riccardo Hillman on 06-12-2023 CO2 [Moles/Vol] 27.0 mmol/L 21.0-32.0 [facility] Natriuretic peptide B (Bld) [Mass/Vol] 596.3 pg/mL 0-100 [facility] Urea nitrogen/Creatinine [Mass ratio] 12.0 mg/mg 10-20 [facility] Laboratory - CoagulationOrde red By: Riccardo Hillman on 06-12-2023 aPTT Coag (Bld) [Time] 27.5 s 24.1-36.2 [facility] PT Coag (PPP) [Time] 12.7 s 11.7-14.9 [facility] Laboratory - Hematology and Cell countsOrdered By: Riccardo Hillman on 06-12-2023 Erythrocyte distribution width (RBC) [Entitic vol] 41.9 fL 35.1-43.9 [facility] Erythrocyte distribution width (RBC) [Ratio] 14.4 % 11.6-14.6 [facility] Immature granulocytes/100 WBC (Bld) 0.300 % 0.0-0.9 [facility] Comment on above: IG% - Immature Granu locytes (promyelocytes, myelocytes and metamyelocytes) > 1% indicates that a LEFT SHIFT is Present. MCH (RBC) [Entitic mass] 25.8 pg 27.0-32.0 [facility] Nucleated RBC/100 WBC (Bld) [Ratio] 0 % 0-5 [facility] MCHC Auto (RBC) [Mass/Vol]Or dered By: Riccardo Hillman on 06-12-2023 MCHC (RBC) [Mass/Vol] 31.8 g/dL 32-36 [facility] No Panel InformationOrdered By: Riccardo Hillman on 06-12-2023 Estimated Creatinine Clearance Calc 140.88 ml/min [facility] Estimated GFR (MDRD) Amer 105 mL/min >60 [facility] Comment on above: GFR Calc Estimated GFR (MDRD) Non-Af Amer 86 mL/min >60 [facility] Comment on above: Non- GFR Calc Troponin I High Sensitivity 22 pg/mL 3.0-54.0 [facility] Comment on above: Please Note: New Junie t Units and Gender Specific Reference Ranges. For more information see Policy Stat Procedure [place] High Sensitivity Troponin (TNIH) and attachments. Platelets bldOrdered By: Guerita Hillman on 06-12-2023 Platelets (Bld) [#/Vol] 150 10*3/uL 150-450 [facility] Serum or plasma calcium xiomara urement (mass/volume)Ordered By: Riccardo Hillman on 06-12-2023 Calcium [Mass/Vol] 9.1 mg/dL 8.5-10.1 [facility] Serum or plasma creatinine m easurement (mass/volume)Ordered By: Riccardo Hillman on 06-12-2023 Creatinine [Mass/Vol] 0.75 mg/dL 0.55-1.02 [facility] Comment on above: The validity of the calculated GFR & GFRAA in patients over 70 years has not been determined. Clinical correlation is essential. Serum or plasma urea nitroge n measurement (mass/volume)Ordered By: Riccardo Hillman on 06-12-2023 Urea nitrogen [Mass/Vol] 9 mg/dL 7-18 [facility] Thin prep Papanicolaou smear with manual screeningOrdered By: Riccardo Hillman on 06-12-2023 Thin prep Papanicolaou smear with manual screening 6 5-15 [facility] Absolute lymphocyte countOrd ered By: Ananda Coyle on 05-26-2023 Lymphocytes Auto (Unsp spec) [#/Vol] 1.00 10*3/uL 0.83-4.51 [facility] Basophil percentageOrdered B y: Ananda Coyle on 05-26-2023 Basophils/100 WBC (Bld) 0.8 % 0-1 [facility] Chloride [Moles/Vol] 103 mmol/L 98-107 [facility] Eosinophils/100 WBC (Bld) 1.3 % 0-5 [facility] Glucose [Mass/Vol] 247 mg/dL 74-106 [facility] Comment on above: Glucose result great er than or equal to 200 mg/dLsuggests DIABETES MELLITUS per A.D.A. criteria. Neutrophils (Bld) [#/Vol] 7.5 10*3/uL 2.0-7.7 [facility] Neutrophils/100 WBC (Bld) 82.1 % 47-70 [facility] Potassium [Moles/Vol] 3.2 mmol/L 3.5-5.1 [facility] Sodium [Moles/Vol] 139 mmol/L 136-145 [facility] WBC (Bld) [#/Vol] 9.1 10*3/uL 4.4-11.0 [facility] Blood erythrocytes count (nu mber/volume)Ordered By: Ananda Coyle on 05-26-2023 RBC (Bld) [#/Vol] 5.34 10*6/uL 4.2-5.4 [facility] Blood hemoglobin measurement (mass/volume)Ordered By: Ananda Coyle on 05-26-2023 Hemoglobin (Bld) [Mass/Vol] 13.9 g/dL 12.0-15.0 [facility] Blood lymphocytes/100 leukoc ytesOrdered By: Ananda Coyle on 05-26-2023 Lymphocytes/100 WBC (Bld) 11.0 % 19-41 [facility] Blood monocytes/100 leukocyt esOrdered By: Ananda Coyle on 05-26-2023 Monocytes/100 WBC (Bld) 4.5 % 0-10 [place] Blood platelet mean volumeOr dered By: Ananda Coyle on 05-26-2023 Platelet mean volume (Bld) [Entitic vol] 9.8 fL 6.2-12.0 [facility] Determination of erythrocyte mean corpuscular volume (MCV)Ordered By: Ananda Coyle on 05-26-2023 MCV (RBC) [Entitic vol] 82.0 fL 81-99 [facility] Hematocrit Auto (Bld) [Volum e fraction]Ordered By: Ananda Coyle on 05-26-2023 Hematocrit (Bld) [Volume fraction] 43.8 % 37-47 [facility] Laboratory - Chemistry and C hemistry - challengeOrdered By: Ananda Coyle on 05-26-2023 CO2 [Moles/Vol] 31.0 mmol/L 21.0-32.0 [facility] Urea nitrogen/Creatinine [Mass ratio] 7.3 mg/mg 10-20 [facility] Laboratory - Hematology and Cell countsOrdered By: Ananda Coyle on 05-26-2023 Erythrocyte distribution width (RBC) [Entitic vol] 42.0 fL 35.1-43.9 [facility] Erythrocyte distribution width (RBC) [Ratio] 14.4 % 11.6-14.6 [facility] Immature granulocytes/100 WBC (Bld) 0.300 % 0.0-0.9 [facility] Comment on above: IG% - Immature Granu locytes (promyelocytes, myelocytes and metamyelocytes) > 1% indicates that a LEFT SHIFT is Present. MCH (RBC) [Entitic mass] 26.0 pg 27.0-32.0 [facility] Nucleated RBC/100 WBC (Bld) [Ratio] 0 % 0-5 [facility] MCHC Auto (RBC) [Mass/Vol]Or dered By: Ananda Coyle on 05-26-2023 MCHC (RBC) [Mass/Vol] 31.7 g/dL 32-36 [facility] No Panel InformationOrdered By: Ananda Coyle on 05-26-2023 Estimated Creatinine Clearance Calc 95.18 ml/min [facility] Estimated GFR (MDRD) Amer 116 mL/min >60 [facility] Comment on above: GFR Calc Estimated GFR (MDRD) Non-Af Amer 96 mL/min >60 [facility] Comment on above: Non- GFR Calc Platelets bldOrdered By: Andrew Coyle on 05-26-2023 Platelets (Bld) [#/Vol] 220 10*3/uL 150-450 [facility] Serum or plasma calcium xiomara urement (mass/volume)Ordered By: Ananda Coyle on 05-26-2023 Calcium [Mass/Vol] 9.1 mg/dL 8.5-10.1 [facility] Serum or plasma creatinine m easurement (mass/volume)Ordered By: Ananda Coyle on 05-26-2023 Creatinine [Mass/Vol] 0.68 mg/dL 0.55-1.02 [facility] Comment on above: The validity of the calculated GFR & GFRAA in patients over 70 years has not been determined. Clinical correlation is essential. Serum or plasma urea nitroge n measurement (mass/volume)Ordered By: Ananda Coyle on 05-26-2023 Urea nitrogen [Mass/Vol] 5 mg/dL 7-18 [facility] Thin prep Papanicolaou smear with manual screeningOrdered By: Ananda Coyle on 05-26-2023 Thin prep Papanicolaou smear with manual screening 5 5-15 [facility] Absolute lymphocyte countOrd ered By: Vidal Solorio on 05-22-2023 Lymphocytes Auto (Unsp spec) [#/Vol] 1.25 10*3/uL 0.83-4.51 [facility] Basophil percentageOrdered B y: Vidal Solorio on 05-22-2023 Basophils/100 WBC (Bld) 0.7 % 0-1 [place] Chloride [Moles/Vol] 102 mmol/L 98-107 [facility] Eosinophils/100 WBC (Bld) 2.0 % 0-5 [facility] Glucose [Mass/Vol] 323 mg/dL 74-106 [facility] Comment on above: Glucose result great er than or equal to 200 mg/dLsuggests DIABETES MELLITUS per A.D.A. criteria. Neutrophils (Bld) [#/Vol] 6.3 10*3/uL 2.0-7.7 [facility] Neutrophils/100 WBC (Bld) 76.7 % 47-70 [facility] Potassium [Moles/Vol] 3.9 mmol/L 3.5-5.1 [facility] Sodium [Moles/Vol] 136 mmol/L 136-145 [facility] WBC (Bld) [#/Vol] 8.1 10*3/uL 4.4-11.0 [facility] Blood erythrocytes count (nu mber/volume)Ordered By: Vidal Solorio on 05-22-2023 RBC (Bld) [#/Vol] 4.97 10*6/uL 4.2-5.4 [facility] Blood hemoglobin measurement (mass/volume)Ordered By: Vidal Solorio on 05-22-2023 Hemoglobin (Bld) [Mass/Vol] 12.9 g/dL 12.0-15.0 [facility] Blood lymphocytes/100 leukoc ytesOrdered By: Vidal Solorio on 05-22-2023 Lymphocytes/100 WBC (Bld) 15.4 % 19-41 [facility] Blood monocytes/100 leukocyt esOrdered By: Vidal Solorio on 05-22-2023 Monocytes/100 WBC (Bld) 4.8 % 0-10 [facility] Blood platelet mean volumeOr dered By: Vidal Solorio on 05-22-2023 Platelet mean volume (Bld) [Entitic vol] 10.6 fL 6.2-12.0 [facility] Determination of erythrocyte mean corpuscular volume (MCV)Ordered By: Vidal Solorio on 05-22-2023 MCV (RBC) [Entitic vol] 82.1 fL 81-99 [facility] Hematocrit Auto (Bld) [Volum e fraction]Ordered By: Vidal Solorio on 05-22-2023 Hematocrit (Bld) [Volume fraction] 40.8 % 37-47 [facility] Laboratory - Chemistry and C hemistry - challengeOrdered By: Vidal Solorio on 05-22-2023 CO2 [Moles/Vol] 30.0 mmol/L 21.0-32.0 [facility] Urea nitrogen/Creatinine [Mass ratio] 11.6 mg/mg 10-20 [facility] Laboratory - Hematology and Cell countsOrdered By: Vidal Solorio on 05-22-2023 Erythrocyte distribution width (RBC) [Entitic vol] 41.3 fL 35.1-43.9 [facility] Erythrocyte distribution width (RBC) [Ratio] 14.1 % 11.6-14.6 [facility] Immature granulocytes/100 WBC (Bld) 0.400 % 0.0-0.9 [facility] Comment on above: IG% - Immature Granu locytes (promyelocytes, myelocytes and metamyelocytes) > 1% indicates that a LEFT SHIFT is Present. MCH (RBC) [Entitic mass] 26.0 pg 27.0-32.0 [facility] Nucleated RBC/100 WBC (Bld) [Ratio] 0 % 0-5 [facility] MCHC Auto (RBC) [Mass/Vol]Or dered By: Vidal Solorio on 05-22-2023 MCHC (RBC) [Mass/Vol] 31.6 g/dL 32-36 [facility] No Panel InformationOrdered By: Vidal Solorio on 05-22-2023 Estimated Creatinine Clearance Calc 82.98 ml/min [facility] Estimated GFR (MDRD) Amer 100 mL/min >60 [facility] Comment on above: GFR Calc Estimated GFR (MDRD) Non-Af Amer 83 mL/min >60 [facility] Comment on above: Non- GFR Calc Platelets bldOrdered By: Roxi Solorio on 05-22-2023 Platelets (Bld) [#/Vol] 196 10*3/uL 150-450 [facility] Serum or plasma calcium xiomara urement (mass/volume)Ordered By: Vidal Solorio on 05-22-2023 Calcium [Mass/Vol] 9.2 mg/dL 8.5-10.1 [facility] Serum or plasma creatinine m easurement (mass/volume)Ordered By: Vidal Solorio on 05-22-2023 Creatinine [Mass/Vol] 0.78 mg/dL 0.55-1.02 [facility] Comment on above: The validity of the calculated GFR & GFRAA in patients over 70 years has not been determined. Clinical correlation is essential. Serum or plasma urea nitroge n measurement (mass/volume)Ordered By: Vidal Solorio on 05-22-2023 Urea nitrogen [Mass/Vol] 9 mg/dL 7-18 [facility] Thin prep Papanicolaou smear with manual screeningOrdered By: Vidal Solorio on 05-22-2023 Thin prep Papanicolaou smear with manual screening 4 5-15 [facility] Absolute lymphocyte countOrd ered By: Brenda Posadas on 05-07-2023 Lymphocytes Auto (Unsp spec) [#/Vol] 1.39 10*3/uL 0.83-4.51 [facility] Basophil percentageOrdered B y: Brenda Posadas on 05-07-2023 Basophils/100 WBC (Bld) 1.1 % 0-1 [facility] Chloride [Moles/Vol] 102 mmol/L 98-107 [facility] Eosinophils/100 WBC (Bld) 3.0 % 0-5 [facility] Glucose [Mass/Vol] 85 mg/dL 74-106 [facility] Neutrophils (Bld) [#/Vol] 4.2 10*3/uL 2.0-7.7 [facility] Neutrophils/100 WBC (Bld) 66.3 % 47-70 [facility] Potassium [Moles/Vol] 4.2 mmol/L 3.5-5.1 [facility] Sodium [Moles/Vol] 136 mmol/L 136-145 [facility] WBC (Bld) [#/Vol] 6.3 10*3/uL 4.4-11.0 [facility] Blood erythrocytes count (nu mber/volume)Ordered By: Brenda Posadas on 05-07-2023 RBC (Bld) [#/Vol] 5.19 10*6/uL 4.2-5.4 [facility] Blood hemoglobin measurement (mass/volume)Ordered By: Brenda Posadas on 05-07-2023 Hemoglobin (Bld) [Mass/Vol] 13.5 g/dL 12.0-15.0 [facility] Blood lymphocytes/100 leukoc ytesOrdered By: Brenda Posadas on 05-07-2023 Lymphocytes/100 WBC (Bld) 22.0 % 19-41 [facility] Blood monocytes/100 leukocyt esOrdered By: Brenda Posadas on 05-07-2023 Monocytes/100 WBC (Bld) 7.3 % 0-10 [facility] Blood platelet mean volumeOr dered By: Brenda Posadas on 05-07-2023 Platelet mean volume (Bld) [Entitic vol] 10.5 fL 6.2-12.0 [facility] Determination of erythrocyte mean corpuscular volume (MCV)Ordered By: Brenda Posadas on 05-07-2023 MCV (RBC) [Entitic vol] 83.8 fL 81-99 [facility] Glucose Glucometer (BldC) [M ass/Vol]Ordered By: Latricia Aaron on 05-07-2023 Glucose [Mass/Vol] 229 mg/dL 74-106 [facility] Comment on above: MANAGEMENT OF PATIEN T CARE PER NURSING PROTOCOL Hematocrit Auto (Bld) [Volum e fraction]Ordered By: Brenda Posadas on 05-07-2023 Hematocrit (Bld) [Volume fraction] 43.5 % 37-47 [facility] Laboratory - Chemistry and C hemistry - challengeOrdered By: Brenda Posadas on 05-07-2023 CO2 [Moles/Vol] 26.0 mmol/L 21.0-32.0 [facility] Urea nitrogen/Creatinine [Mass ratio] 20.5 mg/mg 10-20 [facility] Laboratory - Hematology and Cell countsOrdered By: Brenda Posadas on 05-07-2023 Erythrocyte distribution width (RBC) [Entitic vol] 42.9 fL 35.1-43.9 [facility] Erythrocyte distribution width (RBC) [Ratio] 14.1 % 11.6-14.6 [facility] Immature granulocytes/100 WBC (Bld) 0.300 % 0.0-0.9 [facility] Comment on above: IG% - Immature Granu locytes (promyelocytes, myelocytes and metamyelocytes) > 1% indicates that a LEFT SHIFT is Present. MCH (RBC) [Entitic mass] 26.0 pg 27.0-32.0 [facility] Nucleated RBC/100 WBC (Bld) [Ratio] 0 % 0-5 [facility] MCHC Auto (RBC) [Mass/Vol]Or dered By: Brenda Posadas on 05-07-2023 MCHC (RBC) [Mass/Vol] 31.0 g/dL 32-36 [facility] No Panel InformationOrdered By: Brenda Posadas on 05-07-2023 Estimated Creatinine Clearance Calc 88.66 ml/min [facility] Estimated GFR (MDRD) Amer 108 mL/min >60 [facility] Comment on above: GFR Calc Estimated GFR (MDRD) Non-Af Amer 89 mL/min >60 [facility] Comment on above: Non- GFR Calc Platelets bldOrdered By: [place] Posadas on 05-07-2023 Platelets (Bld) [#/Vol] 202 10*3/uL 150-450 [facility] Serum or plasma calcium xiomara urement (mass/volume)Ordered By: Brenda Posadas on 05-07-2023 Calcium [Mass/Vol] 8.7 mg/dL 8.5-10.1 [facility] Serum or plasma creatinine m easurement (mass/volume)Ordered By: Brenda Posadas on 05-07-2023 Creatinine [Mass/Vol] 0.73 mg/dL 0.55-1.02 [facility] Comment on above: The validity of the calculated GFR & GFRAA in patients over 70 years has not been determined. Clinical correlation is essential. Serum or plasma urea nitroge n measurement (mass/volume)Ordered By: Brenda Posadas on 05-07-2023 Urea nitrogen [Mass/Vol] 15 mg/dL 7-18 [facility] Thin prep Papanicolaou smear with manual screeningOrdered By: Brenda Posadas on 05-07-2023 Thin prep Papanicolaou smear with manual screening 8 5-15 [facility] Laboratory - Chemistry and C hemistry - challengeOrdered By: Lei Justin on 05-04-2023 Magnesium [Mass/Vol] 2.1 mg/dL 1.6-2.6 [facility] No Panel InformationOrdered By: Brenda Posadas on 05-04-2023 Troponin I High Sensitivity 13 pg/mL 3.0-54.0 [facility] Comment on above: Please Note: New Junie t Units and Gender Specific Reference Ranges. For more information see Policy Stat Procedure [place] High Sensitivity Troponin (TNIH) and attachments. Absolute lymphocyte countOrd ered By: Ananda Coyle on 05-03-2023 Lymphocytes Auto (Unsp spec) [#/Vol] 1.07 10*3/uL 0.83-4.51 [facility] Basophil percentageOrdered B y: Ananda Coyle on 05-03-2023 Basophils/100 WBC (Bld) 0.9 % 0-1 [facility] Chloride [Moles/Vol] 106 mmol/L 98-107 [facility] Eosinophils/100 WBC (Bld) 3.4 % 0-5 [facility] Glucose [Mass/Vol] 323 mg/dL 74-106 [facility] Comment on above: Glucose result great er than or equal to 200 mg/dLsuggests DIABETES MELLITUS per A.D.A. criteria. Neutrophils (Bld) [#/Vol] 6.1 10*3/uL 2.0-7.7 [facility] Neutrophils/100 WBC (Bld) 77.6 % 47-70 [facility] Potassium [Moles/Vol] 3.6 mmol/L 3.5-5.1 [facility] Sodium [Moles/Vol] 138 mmol/L 136-145 [facility] WBC (Bld) [#/Vol] 7.9 10*3/uL 4.4-11.0 [facility] Blood erythrocytes count (nu mber/volume)Ordered By: Ananda Coyle on 05-03-2023 RBC (Bld) [#/Vol] 4.86 10*6/uL 4.2-5.4 [facility] Blood hemoglobin measurement (mass/volume)Ordered By: Ananda Coyle on 05-03-2023 Hemoglobin (Bld) [Mass/Vol] 12.6 g/dL 12.0-15.0 [facility] Blood lymphocytes/100 leukoc ytesOrdered By: Ananda Coyle on 05-03-2023 Lymphocytes/100 WBC (Bld) 13.6 % 19-41 [facility] Blood monocytes/100 leukocyt esOrdered By: Ananda Coyle on 05-03-2023 Monocytes/100 WBC (Bld) 3.9 % 0-10 [facility] Blood platelet mean volumeOr dered By: Ananda Coyle on 05-03-2023 Platelet mean volume (Bld) [Entitic vol] 9.8 fL 6.2-12.0 [facility] Determination of erythrocyte mean corpuscular volume (MCV)Ordered By: Ananda Coyle on 05-03-2023 MCV (RBC) [Entitic vol] 82.5 fL 81-99 [facility] Hematocrit Auto (Bld) [Volum e fraction]Ordered By: Ananda Coyle on 05-03-2023 Hematocrit (Bld) [Volume fraction] 40.1 % 37-47 [facility] Influenza virus A and B and SARS-CoV-2 (COVID-19) Ag panel - Upper respiratory specimOrdered By: Ananda Coyle on 05-03-2023 SARS-CoV-2 (COVID-19) RNA CRISSY+probe Ql (Resp) [facility] Laboratory - Chemistry and C hemistry - challengeOrdered By: Ananda Coyle on 05-03-2023 CO2 [Moles/Vol] 29.0 mmol/L 21.0-32.0 [facility] Natriuretic peptide B (Bld) [Mass/Vol] 941.8 pg/mL 0-100 [facility] Urea nitrogen/Creatinine [Mass ratio] 13.0 mg/mg 10-20 [facility] Laboratory - Hematology and Cell countsOrdered By: Ananda Coyle on 05-03-2023 Erythrocyte distribution width (RBC) [Entitic vol] 41.4 fL 35.1-43.9 [facility] Erythrocyte distribution width (RBC) [Ratio] 14.2 % 11.6-14.6 [facility] Immature granulocytes/100 WBC (Bld) 0.600 % 0.0-0.9 [facility] Comment on above: IG% - Immature Granu locytes (promyelocytes, myelocytes and metamyelocytes) > 1% indicates that a LEFT SHIFT is Present. MCH (RBC) [Entitic mass] 25.9 pg 27.0-32.0 [facility] Nucleated RBC/100 WBC (Bld) [Ratio] 0 % 0-5 [facility] MCHC Auto (RBC) [Mass/Vol]Or dered By: Ananda Coyle on 05-03-2023 MCHC (RBC) [Mass/Vol] 31.4 g/dL 32-36 [facility] No Panel InformationOrdered By: Ananda Coyle on 05-03-2023 Estimated Creatinine Clearance Calc 84.06 ml/min [facility] Estimated GFR (MDRD) Amer 102 mL/min >60 [facility] Comment on above: GFR Calc Estimated GFR (MDRD) Non-Af Amer 84 mL/min >60 [facility] Comment on above: Non- GFR Calc Troponin I High Sensitivity 14 pg/mL 3.0-54.0 [facility] Comment on above: Please Note: New Junie t Units and Gender Specific Reference Ranges. For more information see Policy Stat Procedure [place] High Sensitivity Troponin (TNIH) and attachments. Platelets bldOrdered By: Andrew Coyle on 05-03-2023 Platelets (Bld) [#/Vol] 210 10*3/uL 150-450 [facility] Serum or plasma calcium xiomara urement (mass/volume)Ordered By: Ananda Coyle on 05-03-2023 Calcium [Mass/Vol] 8.6 mg/dL 8.5-10.1 [facility] Serum or plasma creatinine m easurement (mass/volume)Ordered By: Ananda Coyle on 05-03-2023 Creatinine [Mass/Vol] 0.77 mg/dL 0.55-1.02 [facility] Comment on above: The validity of the calculated GFR & GFRAA in patients over 70 years has not been determined. Clinical correlation is essential. Serum or plasma urea nitroge n measurement (mass/volume)Ordered By: Ananda Coyle on 05-03-2023 Urea nitrogen [Mass/Vol] 10 mg/dL 7-18 [facility] Thin prep Papanicolaou smear with manual screeningOrdered By: Ananda Coyle on 05-03-2023 Thin prep Papanicolaou smear with manual screening 3 - [facility] Upper respiratory specimen i nfluenza A virus, influenza B virus, and severe acute resOrdered By: Ananda Coyle on 05-03-2023 Upper respiratory specimen influenza A virus, influenza B virus, and severe acute res [facility] Upper respiratory specimen i nfluenza A virus, influenza B virus, and severe acute respiratory syndromOrdered By: Ananda Coyle on 05-03-2023 Upper respiratory specimen influenza A virus, influenza B virus, and severe acute respiratory syndrom [facility] Whole blood hemoglobin A1c/t otal hemoglobin ratio (mass fraction)Ordered By: Lei Justin on 05-03-2023 HbA1c (Bld) [Mass fraction] 11.0 % 3.8-5.6 [facility] Comment on above: Normal < 5.7 % Predi abetic 5.7 - 6.4 % Diabetic >or= 6.5 % Please note range changes. Basophil percentageOrdered B y: Lino Sousa on 04-18-2023 Amylase [Catalytic activity/Vol] 45 U/L 25-115 [facility] Bilirubin [Mass/Vol] 0.90 mg/dL 0.20-1.00 [facility] Comment on above: For patients on eltr ombopag therapy, use of Dimension [place] TBIL is not recommended. Chloride [Moles/Vol] 103 mmol/L 98-107 [facility] Glucose [Mass/Vol] 279 mg/dL 74-106 [facility] Comment on above: Glucose result great er than or equal to 200 mg/dLsuggests DIABETES MELLITUS per A.D.A. criteria. Potassium [Moles/Vol] 4.1 mmol/L 3.5-5.1 [facility] Protein [Mass/Vol] 7.5 g/dL 6.4-8.2 [facility] Sodium [Moles/Vol] 137 mmol/L 136-145 [facility] Laboratory - Chemistry and C hemistry - challengeOrdered By: Lino Sousa on 04-18-2023 ALP [Catalytic activity/Vol] 104 U/L 45-117 [facility] ALT [Catalytic activity/Vol] 13 U/L 13-56 [facility] CO2 [Moles/Vol] 30.0 mmol/L 21.0-32.0 [facility] Globulin (S) [Mass/Vol] 4.5 g/dL 2.2-4.2 [place] Lipase [Catalytic activity/Vol] 27 U/L 13-75 [facility] Comment on above: Please note:LIPASE r evised reference range effective 22. New Lipase methodology. Expected to produce lower values than the previous assay method. NEW Reference Range: 13 - 75 U/L Urea nitrogen/Creatinine [Mass ratio] 12.8 mg/mg 10-20 [facility] No Panel InformationOrdered By: Lino Sousa on 04-18-2023 Estimated GFR (MDRD) Amer 90 mL/min >60 [facility] Comment on above: GFR Calc Estimated GFR (MDRD) Non-Af Amer 74 mL/min >60 [facility] Comment on above: Non- GFR Calc Serum or plasma albumin xiomara urement (mass/volume)Ordered By: Lino Sousa on 04-18-2023 Albumin [Mass/Vol] 3.0 g/dL 3.2-5.0 [facility] Serum or plasma albumin/glob ulin mass ratioOrdered By: Lino Sousa on 04-18-2023 Albumin/Globulin [Mass ratio] 0.7 {ratio} 0.9-2.4 [facility] Serum or plasma calcium xiomara urement (mass/volume)Ordered By: Lino Sousa on 04-18-2023 Calcium [Mass/Vol] 9.0 mg/dL 8.5-10.1 [facility] Serum or plasma creatinine m easurement (mass/volume)Ordered By: Lino Sousa on 04-18-2023 Creatinine [Mass/Vol] 0.86 mg/dL 0.55-1.02 [facility] Comment on above: The validity of the calculated GFR & GFRAA in patients over 70 years has not been determined. Clinical correlation is essential. Serum or plasma urea nitroge n measurement (mass/volume)Ordered By: Lino Sousa on 04-18-2023 Urea nitrogen [Mass/Vol] 11 mg/dL 7-18 [facility] Thin prep Papanicolaou smear with manual screeningOrdered By: Lino Sousa on 04-18-2023 Thin prep Papanicolaou smear with manual screening 12 U/L 15-37 [facility] Thin prep Papanicolaou smear with manual screening 4 - [facility] Absolute lymphocyte countOrd ered By: Brandon Adames on 02-03-2023 Lymphocytes Auto (Unsp spec) [#/Vol] 1.68 10*3/uL 0.83-4.51 [facility] Basophil percentageOrdered B y: Brandon Adames on 02-03-2023 Basophils/100 WBC (Bld) 1.0 % 0-1 [facility] Chloride [Moles/Vol] 106 mmol/L 98-107 [facility] Eosinophils/100 WBC (Bld) 3.2 % 0-5 [facility] Glucose [Mass/Vol] 177 mg/dL 74-106 [facility] Comment on above: Fasting Glucose resu lt greater than or equal to 126 mg/dL suggests DIABETES MELLITUS per A.D.A. criteria. Neutrophils (Bld) [#/Vol] 5.9 10*3/uL 2.0-7.7 [facility] Neutrophils/100 WBC (Bld) 70.1 % 47-70 [facility] Potassium [Moles/Vol] 3.6 mmol/L 3.5-5.1 [facility] Sodium [Moles/Vol] 138 mmol/L 136-145 [facility] WBC (Bld) [#/Vol] 8.4 10*3/uL 4.4-11.0 [facility] Blood erythrocytes count (nu mber/volume)Ordered By: Brandon Adames on 02-03-2023 RBC (Bld) [#/Vol] 4.78 10*6/uL 4.2-5.4 [facility] Blood hemoglobin measurement (mass/volume)Ordered By: Brandon Adames on 02-03-2023 Hemoglobin (Bld) [Mass/Vol] 13.1 g/dL 12.0-15.0 [facility] Blood lymphocytes/100 leukoc ytesOrdered By: Brandon Adames on 02-03-2023 Lymphocytes/100 WBC (Bld) 20.1 % 19-41 [facility] Blood monocytes/100 leukocyt esOrdered By: Brandon Adames on 02-03-2023 Monocytes/100 WBC (Bld) 5.4 % 0-10 [facility] Blood platelet mean volumeOr dered By: Brandon Adames on 02-03-2023 Platelet mean volume (Bld) [Entitic vol] 9.9 fL 6.2-12.0 [facility] Determination of erythrocyte mean corpuscular volume (MCV)Ordered By: Brandon Adames on 02-03-2023 MCV (RBC) [Entitic vol] 86.0 fL 81-99 [facility] Glucose Glucometer (dC) [M ass/Vol]Ordered By: Sabina Rosenberg on 02-03-2023 Glucose [Mass/Vol] 247 mg/dL 74-106 [facility] Comment on above: MANAGEMENT OF PATIEN T CARE PER NURSING PROTOCOL Hematocrit Auto (Bld) [Volum e fraction]Ordered By: Brandon Adames on 02-03-2023 Hematocrit (Bld) [Volume fraction] 41.1 % 37-47 [facility] Laboratory - Chemistry and C hemistry - challengeOrdered By: Brandon Adames on 02-03-2023 CO2 [Moles/Vol] 27.0 mmol/L 21.0-32.0 [facility] Urea nitrogen/Creatinine [Mass ratio] 12.6 mg/mg 10-20 [facility] Laboratory - Hematology and Cell countsOrdered By: Brandon Adames on 02-03-2023 Erythrocyte distribution width (RBC) [Entitic vol] 40.4 fL 35.1-43.9 [facility] Erythrocyte distribution width (RBC) [Ratio] 13.1 % 11.6-14.6 [facility] Immature granulocytes/100 WBC (Bld) 0.200 % 0.0-0.9 [facility] Comment on above: IG% - Immature Granu locytes (promyelocytes, myelocytes and metamyelocytes) > 1% indicates that a LEFT SHIFT is Present. MCH (RBC) [Entitic mass] 27.4 pg 27.0-32.0 [facility] Nucleated RBC/100 WBC (Bld) [Ratio] 0 % 0-5 [facility] MCHC Auto (RBC) [Mass/Vol]Or dered By: Brandon Adames on 02-03-2023 MCHC (RBC) [Mass/Vol] 31.9 g/dL 32-36 [facility] No Panel InformationOrdered By: Brandon Adames on 02-03-2023 Estimated Creatinine Clearance Calc 115.58 ml/min [facility] Estimated GFR (MDRD) Amer 148 mL/min >60 [facility] Comment on above: GFR Calc Estimated GFR (MDRD) Non-Af Amer 122 mL/min >60 [facility] Comment on above: Non- GFR Calc No Panel InformationOrdered By: Michael Kinsey on 02-03-2023 Troponin I High Sensitivity 26 pg/mL 3.0-54.0 [facility] Comment on above: Please Note: New Junie t Units and Gender Specific Reference Ranges. For more information see Policy Stat Procedure [place] High Sensitivity Troponin (TNIH) and attachments. Platelets bldOrdered By: Yamil Adames on 02-03-2023 Platelets (Bld) [#/Vol] 226 10*3/uL 150-450 [facility] Serum or plasma calcium xiomara urement (mass/volume)Ordered By: Brandon Adames on 02-03-2023 Calcium [Mass/Vol] 8.3 mg/dL 8.5-10.1 [facility] Serum or plasma creatinine m easurement (mass/volume)Ordered By: Brandon Adames on 02-03-2023 Creatinine [Mass/Vol] 0.56 mg/dL 0.55-1.02 [facility] Comment on above: The validity of the calculated GFR & GFRAA in patients over 70 years has not been determined. Clinical correlation is essential. Serum or plasma urea nitroge n measurement (mass/volume)Ordered By: Brandon Adames on 02-03-2023 Urea nitrogen [Mass/Vol] 7 mg/dL 7-18 [facility] Thin prep Papanicolaou smear with manual screeningOrdered By: Brandon Adames on 02-03-2023 Thin prep Papanicolaou smear with manual screening 5 5-15 [facility] Absolute lymphocyte countOrd ered By: Zack Card on 02-02-2023 Lymphocytes Auto (Unsp spec) [#/Vol] 1.45 10*3/uL 0.83-4.51 [facility] Basophil percentageOrdered B y: Zack Card on 02-02-2023 Basophils/100 WBC (Bld) 1.1 % 0-1 [place] Chloride [Moles/Vol] 104 mmol/L 98-107 [facility] Eosinophils/100 WBC (Bld) 3.9 % 0-5 [facility] Glucose [Mass/Vol] 249 mg/dL 74-106 [facility] Comment on above: Glucose result great er than or equal to 200 mg/dLsuggests DIABETES MELLITUS per A.D.A. criteria. Neutrophils (Bld) [#/Vol] 5.5 10*3/uL 2.0-7.7 [facility] Neutrophils/100 WBC (Bld) 70.1 % 47-70 [facility] Potassium [Moles/Vol] 3.6 mmol/L 3.5-5.1 [facility] Sodium [Moles/Vol] 138 mmol/L 136-145 [facility] WBC (Bld) [#/Vol] 7.9 10*3/uL 4.4-11.0 [facility] Blood erythrocytes count (nu mber/volume)Ordered By: Zack Card on 02-02-2023 RBC (Bld) [#/Vol] 4.79 10*6/uL 4.2-5.4 [facility] Blood hemoglobin measurement (mass/volume)Ordered By: Zack Card on 02-02-2023 Hemoglobin (Bld) [Mass/Vol] 13.2 g/dL 12.0-15.0 [facility] Blood lymphocytes/100 leukoc ytesOrdered By: Zack Card on 02-02-2023 Lymphocytes/100 WBC (Bld) 18.4 % 19-41 [facility] Blood monocytes/100 leukocyt esOrdered By: Zack Card on 02-02-2023 Monocytes/100 WBC (Bld) 6.1 % 0-10 [facility] Blood platelet mean volumeOr dered By: Zack Card on 02-02-2023 Platelet mean volume (Bld) [Entitic vol] 10.6 fL 6.2-12.0 [facility] Determination of erythrocyte mean corpuscular volume (MCV)Ordered By: Zack Card on 02-02-2023 MCV (RBC) [Entitic vol] 87.3 fL 81-99 [facility] Hematocrit Auto (Bld) [Volum e fraction]Ordered By: Zack Card on 02-02-2023 Hematocrit (Bld) [Volume fraction] 41.8 % 37-47 [facility] Laboratory - Chemistry and C hemistry - challengeOrdered By: Zack Card on 02-02-2023 CO2 [Moles/Vol] 30.0 mmol/L 21.0-32.0 [facility] Natriuretic peptide B (Bld) [Mass/Vol] 498.2 pg/mL 0-100 [facility] Urea nitrogen/Creatinine [Mass ratio] 11.7 mg/mg 10-20 [facility] Laboratory - Hematology and Cell countsOrdered By: Zack Card on 02-02-2023 Erythrocyte distribution width (RBC) [Entitic vol] 41.2 fL 35.1-43.9 [facility] Erythrocyte distribution width (RBC) [Ratio] 13.0 % 11.6-14.6 [facility] Immature granulocytes/100 WBC (Bld) 0.400 % 0.0-0.9 [facility] Comment on above: IG% - Immature Granu locytes (promyelocytes, myelocytes and metamyelocytes) > 1% indicates that a LEFT SHIFT is Present. MCH (RBC) [Entitic mass] 27.6 pg 27.0-32.0 [facility] Nucleated RBC/100 WBC (Bld) [Ratio] 0 % 0-5 [facility] MCHC Auto (RBC) [Mass/Vol]Or dered By: Zack Card on 02-02-2023 MCHC (RBC) [Mass/Vol] 31.6 g/dL 32-36 [facility] No Panel InformationOrdered By: Zack Card on 02-02-2023 Troponin I High Sensitivity 24 pg/mL 3.0-54.0 [facility] Comment on above: Please Note: New Junie t Units and Gender Specific Reference Ranges. For more information see Policy Stat Procedure [place] High Sensitivity Troponin (TNIH) and attachments. D-Dimer Quantitative (PE/DVT) 0.99 FEU/ug/m 0.27-0.49 [facility] Comment on above: D-Dimer ELEVATED (>0 .49): Additional studies and clinicalassessments are indicated to conclude diagnosis of:Deep Vein Thrombosis (DVT) or Pulmonary Embolism (PE) Estimated Creatinine Clearance Calc 90.30 ml/min [facility] Estimated GFR (MDRD) Amer 116 mL/min >60 [facility] Comment on above: GFR Calc Estimated GFR (MDRD) Non-Af Amer 96 mL/min >60 [facility] Comment on above: Non- GFR Calc Platelets bldOrdered By: Sanjay Card on 02-02-2023 Platelets (Bld) [#/Vol] 238 10*3/uL 150-450 [facility] Serum or plasma calcium xiomara urement (mass/volume)Ordered By: Zack Card on 02-02-2023 Calcium [Mass/Vol] 8.9 mg/dL 8.5-10.1 [facility] Serum or plasma creatinine m easurement (mass/volume)Ordered By: Zack Card on 02-02-2023 Creatinine [Mass/Vol] 0.69 mg/dL 0.55-1.02 [facility] Comment on above: The validity of the calculated GFR & GFRAA in patients over 70 years has not been determined. Clinical correlation is essential. Serum or plasma urea nitroge n measurement (mass/volume)Ordered By: Zack Card on 02-02-2023 Urea nitrogen [Mass/Vol] 8 mg/dL 7-18 [facility] Thin prep Papanicolaou smear with manual screeningOrdered By: Zack Card on 02-02-2023 Thin prep Papanicolaou smear with manual screening 4 5-15 [facility] Glucose Glucometer (BldC) [M ass/Vol]Ordered By: Sabina Rosenberg on 01-03-2023 Glucose [Mass/Vol] 154 mg/dL 74-106 [facility] Comment on above: MANAGEMENT OF PATIEN T CARE PER NURSING PROTOCOL Basophil percentageOrdered B y: Sabina Rosenberg on 01-02-2023 Chloride [Moles/Vol] 100 mmol/L 98-107 [facility] Glucose [Mass/Vol] 293 mg/dL 74-106 [facility] Comment on above: Glucose result great er than or equal to 200 mg/dLsuggests DIABETES MELLITUS per A.D.A. criteria. Potassium [Moles/Vol] 3.7 mmol/L 3.5-5.1 [facility] Sodium [Moles/Vol] 136 mmol/L 136-145 [facility] Laboratory - Chemistry and C hemistry - challengeOrdered By: Sabina Rosenberg on 01-02-2023 CO2 [Moles/Vol] 30.0 mmol/L 21.0-32.0 [facility] Urea nitrogen/Creatinine [Mass ratio] 8.3 mg/mg 10-20 [facility] No Panel InformationOrdered By: Sabina Rosenberg on 01-02-2023 Estimated Creatinine Clearance Calc 86.54 ml/min [facility] Estimated GFR (MDRD) Amer 109 mL/min >60 [facility] Comment on above: GFR Calc Estimated GFR (MDRD) Non-Af Amer 90 mL/min >60 [facility] Comment on above: Non- GFR Calc Serum or plasma calcium xiomara urement (mass/volume)Ordered By: Sabina Rosenberg on 01-02-2023 Calcium [Mass/Vol] 8.7 mg/dL 8.5-10.1 [facility] Serum or plasma creatinine m easurement (mass/volume)Ordered By: Sabina Rosenberg on 01-02-2023 Creatinine [Mass/Vol] 0.72 mg/dL 0.55-1.02 [facility] Comment on above: The validity of the calculated GFR & GFRAA in patients over 70 years has not been determined. Clinical correlation is essential. Serum or plasma urea nitroge n measurement (mass/volume)Ordered By: Sabina Rosenberg on 01-02-2023 Urea nitrogen [Mass/Vol] 6 mg/dL 7-18 [facility] Thin prep Papanicolaou smear with manual screeningOrdered By: Sabina Rosenberg on 01-02-2023 Thin prep Papanicolaou smear with manual screening 6 5-15 [facility] Absolute lymphocyte countOrd ered By: Yvette Hanley on 01-01-2023 Lymphocytes Auto (Unsp spec) [#/Vol] 1.39 10*3/uL 0.83-4.51 [facility] Basophil percentageOrdered B y: Yvette Hanley on 01-01-2023 Basophils/100 WBC (Bld) 0.8 % 0-1 [facility] Chloride [Moles/Vol] 104 mmol/L 98-107 [facility] Eosinophils/100 WBC (Bld) 2.7 % 0-5 [facility] Glucose [Mass/Vol] 344 mg/dL 74-106 [facility] Comment on above: Glucose result great er than or equal to 200 mg/dLsuggests DIABETES MELLITUS per A.D.A. criteria. Neutrophils (Bld) [#/Vol] 6.5 10*3/uL 2.0-7.7 [facility] Neutrophils/100 WBC (Bld) 75.1 % 47-70 [facility] Potassium [Moles/Vol] 4.0 mmol/L 3.5-5.1 [facility] Sodium [Moles/Vol] 136 mmol/L 136-145 [facility] WBC (Bld) [#/Vol] 8.7 10*3/uL 4.4-11.0 [facility] Blood erythrocytes count (nu mber/volume)Ordered By: Yvette Hanley on 01-01-2023 RBC (Bld) [#/Vol] 5.13 10*6/uL 4.2-5.4 [facility] Blood hemoglobin measurement (mass/volume)Ordered By: Yvette Hanley on 01-01-2023 Hemoglobin (Bld) [Mass/Vol] 14.0 g/dL 12.0-15.0 [facility] Blood lymphocytes/100 leukoc ytesOrdered By: Sallie Talon on 01-01-2023 Lymphocytes/100 WBC (Bld) 16.1 % 19-41 [facility] Blood monocytes/100 leukocyt esOrdered By: Yvette Hanley on 01-01-2023 Monocytes/100 WBC (Bld) 5.0 % 0-10 [facility] Blood platelet mean volumeOr dered By: Yvette Hanley on 01-01-2023 Platelet mean volume (Bld) [Entitic vol] 9.5 fL 6.2-12.0 [facility] Determination of erythrocyte mean corpuscular volume (MCV)Ordered By: Yvette Hanley on 01-01-2023 MCV (RBC) [Entitic vol] 84.2 fL 81-99 [facility] Hematocrit Auto (Bld) [Volum e fraction]Ordered By: Yvette Hanley on 01-01-2023 Hematocrit (Bld) [Volume fraction] 43.2 % 37-47 [facility] Influenza virus A and B and SARS-CoV-2 (COVID-19) Ag panel - Upper respiratory specimOrdered By: [place] Talon on 01-01-2023 SARS-CoV-2 (COVID-19) RNA CRISSY+probe Ql (Resp) [facility] SARS-CoV-2 (COVID-19) RNA CRISSY+probe Ql (Resp) [facility] Laboratory - Chemistry and C hemistry - challengeOrdered By: Yvette Hanley on 01-01-2023 Natriuretic peptide B (Bld) [Mass/Vol] 573.6 pg/mL 0-100 [facility] CO2 [Moles/Vol] 27.0 mmol/L 21.0-32.0 [facility] Urea nitrogen/Creatinine [Mass ratio] 8.2 mg/mg 10-20 [facility] Laboratory - Hematology and Cell countsOrdered By: Yvette Hanley on 01-01-2023 Erythrocyte distribution width (RBC) [Entitic vol] 42.1 fL 35.1-43.9 [facility] Erythrocyte distribution width (RBC) [Ratio] 13.7 % 11.6-14.6 [facility] Immature granulocytes/100 WBC (Bld) 0.300 % 0.0-0.9 [facility] Comment on above: IG% - Immature Granu locytes (promyelocytes, myelocytes and metamyelocytes) > 1% indicates that a LEFT SHIFT is Present. MCH (RBC) [Entitic mass] 27.3 pg 27.0-32.0 [facility] Nucleated RBC/100 WBC (Bld) [Ratio] 0 % 0-5 [facility] MCHC Auto (RBC) [Mass/Vol]Or dered By: Yvette Hanley on 01-01-2023 MCHC (RBC) [Mass/Vol] 32.4 g/dL 32-36 [facility] No Panel InformationOrdered By: Yvette Hanley on 01-01-2023 Troponin I High Sensitivity 12 pg/mL 3.0-54.0 [facility] Comment on above: Please Note: New Junie t Units and Gender Specific Reference Ranges. For more information see Policy Stat Procedure [place] High Sensitivity Troponin (TNIH) and attachments. Estimated Creatinine Clearance Calc 84.20 ml/min [facility] Estimated GFR (MDRD) Amer 107 mL/min >60 [facility] Comment on above: GFR Calc Estimated GFR (MDRD) Non-Af Amer 88 mL/min >60 [facility] Comment on above: Non- GFR Calc Platelets bldOrdered By: Sallie Hanley on 01-01-2023 Platelets (Bld) [#/Vol] 201 10*3/uL 150-450 [facility] Serum or plasma calcium xiomara urement (mass/volume)Ordered By: Yvette Hanley on 01-01-2023 Calcium [Mass/Vol] 8.7 mg/dL 8.5-10.1 [facility] Serum or plasma creatinine m easurement (mass/volume)Ordered By: Yvette Hanley on 01-01-2023 Creatinine [Mass/Vol] 0.74 mg/dL 0.55-1.02 [facility] Comment on above: The validity of the calculated GFR & GFRAA in patients over 70 years has not been determined. Clinical correlation is essential. Serum or plasma urea nitroge n measurement (mass/volume)Ordered By: Yvette Hanley on 01-01-2023 Urea nitrogen [Mass/Vol] 6 mg/dL 7-18 [facility] Thin prep Papanicolaou smear with manual screeningOrdered By: Yvette Hanley on 01-01-2023 Thin prep Papanicolaou smear with manual screening 5 5-15 [facility] Absolute lymphocyte countOrd ered By: Dr. Card on 09-18-2022 Lymphocytes Auto (Unsp spec) [#/Vol] 1.74 10*3/uL 0.83-4.51 [facility] Basophil percentageOrdered B y: Dr. Card on 09-18-2022 Basophil percentage 425 mg/dL 74-106 [facility] Basophil percentage 6.7 g/dL 6.4-8.2 [facility] Basophil percentage 0.70 mg/dL 0.20-1.00 [facility] Basophil percentage 132 mmol/L 136-145 [facility] Basophil percentage 4.7 mmol/L 3.5-5.1 [facility] Basophil percentage 100 mmol/L 98-107 [facility] Basophils (Bld) [#/Vol] 9.5 10*3/uL 4.4-11.0 [facility] Basophils (Bld) [#/Vol] 7.1 10*3/uL 2.0-7.7 [facility] Basophils/100 WBC (Bld) 74.8 % 47-70 [facility] Basophils/100 WBC (Bld) 0.7 % 0-5 [facility] Basophils/100 WBC (Bld) 0.4 % 0-1 [facility] Basophil percentageOrdered B y: Zack Card on 09-18-2022 Bilirubin [Mass/Vol] 0.70 mg/dL 0.20-1.00 [facility] Comment on above: For patients on eltr ombopag therapy, use of Dimension [place] TBIL is not recommended. Chloride [Moles/Vol] 100 mmol/L 98-107 [facility] Glucose [Mass/Vol] 425 mg/dL 74-106 [facility] Comment on above: Glucose result great er than or equal to 200 mg/dLsuggests DIABETES MELLITUS per A.D.A. criteria. Potassium [Moles/Vol] 4.7 mmol/L 3.5-5.1 [facility] Protein [Mass/Vol] 6.7 g/dL 6.4-8.2 [facility] Sodium [Moles/Vol] 132 mmol/L 136-145 [facility] Eosinophils/100 WBC (Bld) 0.7 % 0-5 [facility] Neutrophils (Bld) [#/Vol] 7.1 10*3/uL 2.0-7.7 [facility] Neutrophils/100 WBC (Bld) 74.8 % 47-70 [facility] WBC (Bld) [#/Vol] 9.5 10*3/uL 4.4-11.0 [facility] Blood erythrocytes count (nu mber/volume)Ordered By: Dr. Card on 09-18-2022 RBC (Bld) [#/Vol] 6.20 10*6/uL 4.2-5.4 [facility] Blood hemoglobin measurement (mass/volume)Ordered By: Dr. Card on 09-18-2022 Hemoglobin (Bld) [Mass/Vol] 17.0 g/dL 12.0-15.0 [facility] Blood lymphocytes/100 leukoc ytesOrdered By: Dr. Card on 09-18-2022 Lymphocytes/100 WBC (Bld) 18.4 % 19-41 [facility] Blood monocytes/100 leukocyt esOrdered By: Dr. Card on 09-18-2022 Monocytes/100 WBC (Bld) 5.3 % 0-10 [facility] Blood platelet mean volumeOr dered By: Dr. Card on 09-18-2022 Platelet mean volume (Bld) [Entitic vol] 9.4 fL 6.2-12.0 [facility] Determination of erythrocyte mean corpuscular volume (MCV)Ordered By: Dr. Card on 09-18-2022 MCV (RBC) [Entitic vol] 82.7 fL 81-99 [facility] Direct bilirubinOrdered By: Dr. Card on 09-18-2022 Bilirubin.direct [Mass/Vol] 0.18 mg/dL 0.00-0.30 [facility] Glucose Glucometer (BldC) [M ass/Vol]Ordered By: Dr. Card on 09-18-2022 Glucose [Mass/Vol] 281 mg/dL 74-106 [facility] Comment on above: MANAGEMENT OF PATIEN T CARE PER NURSING PROTOCOL Hematocrit Auto (Bld) [Volum e fraction]Ordered By: Dr. Card on 09-18-2022 Hematocrit (Bld) [Volume fraction] 51.3 % 37-47 [facility] Laboratory - Chemistry and C hemistry - challengeOrdered By: Zack Card on 09-18-2022 ALP [Catalytic activity/Vol] 111 U/L 45-117 [facility] ALT [Catalytic activity/Vol] 19 U/L 13-56 [facility] CO2 [Moles/Vol] 30.0 mmol/L 21.0-32.0 [facility] Globulin (S) [Mass/Vol] 3.9 g/dL 2.2-4.2 [facility] Lipase [Catalytic activity/Vol] 27 U/L 13-75 [facility] Comment on above: Please note:LIPASE r evised reference range effective 22. New Lipase methodology. Expected to produce lower values than the previous assay method. NEW Reference Range: 13 - 75 U/L Urea nitrogen/Creatinine [Mass ratio] 18.2 mg/mg 10-20 [facility] Laboratory - Hematology and Cell countsOrdered By: Zack Card on 09-18-2022 Erythrocyte distribution width (RBC) [Entitic vol] 38.1 fL 35.1-43.9 [facility] Erythrocyte distribution width (RBC) [Ratio] 12.7 % 11.6-14.6 [facility] Immature granulocytes/100 WBC (Bld) 0.400 % 0.0-0.9 [facility] Comment on above: IG% - Immature Granu locytes (promyelocytes, myelocytes and metamyelocytes) > 1% indicates that a LEFT SHIFT is Present. MCH (RBC) [Entitic mass] 27.4 pg 27.0-32.0 [facility] Nucleated RBC/100 WBC (Bld) [Ratio] 0 % 0-5 [facility] MCHC Auto (RBC) [Mass/Vol]Or dered By: Dr. Card on 09-18-2022 MCHC (RBC) [Mass/Vol] 33.1 g/dL 32-36 [facility] No Panel InformationOrdered By: Zack Card on 09-18-2022 Estimated Creatinine Clearance Calc 62.94 ml/min [facility] Estimated GFR (MDRD) Amer 76 mL/min >60 [facility] Comment on above: GFR Calc Estimated GFR (MDRD) Non-Af Amer 63 mL/min >60 [facility] Comment on above: Non- GFR Calc No Panel InformationOrdered By: Dr. Card on 09-18-2022 63 mL/min >60 [facility] 76 mL/min >60 [facility] 62.94 ml/min [facility] 18.2 RATIO 10-20 [facility] 3.9 g/dL 2.2-4.2 [facility] 27 U/L 13-75 [facility] 111 U/L 45-117 [facility] 19 U/L 13-56 [facility] 30.0 mmol/L 21.0-32.0 [facility] 27.4 pg 27.0-32.0 [facility] 12.7 % 11.6-14.6 [facility] 38.1 fl 35.1-43.9 [facility] 0.400 % 0.0-0.9 [facility] 0 % 0-5 [facility] Platelets bldOrdered By: Dr. Card on 09-18-2022 Platelets (Bld) [#/Vol] 268 10*3/uL 150-450 [facility] Serum or plasma albumin xiomara urement (mass/volume)Ordered By: Dr. Card on 09-18-2022 Albumin [Mass/Vol] 2.8 g/dL 3.2-5.0 [facility] Serum or plasma albumin/glob ulin mass ratioOrdered By: Dr. Card on 09-18-2022 Albumin/Globulin [Mass ratio] 0.7 {ratio} 0.9-2.4 [facility] Serum or plasma calcium xiomara urement (mass/volume)Ordered By: Dr. Card on 09-18-2022 Calcium [Mass/Vol] 9.0 mg/dL 8.5-10.1 [facility] Serum or plasma creatinine m easurement (mass/volume)Ordered By: Dr. Card on 09-18-2022 Creatinine [Mass/Vol] 0.99 mg/dL 0.55-1.02 [facility] Comment on above: The validity of the calculated GFR & GFRAA in patients over 70 years has not been determined. Clinical correlation is essential. Serum or plasma urea nitroge n measurement (mass/volume)Ordered By: Dr. Card on 09-18-2022 Urea nitrogen [Mass/Vol] 18 mg/dL 7-18 [facility] Thin prep Papanicolaou smear with manual screeningOrdered By: Dr. Card on 09-18-2022 Thin prep Papanicolaou smear with manual screening 14 U/L 15-37 [facility] Thin prep Papanicolaou smear with manual screening 2 5-15 [facility] Absolute lymphocyte countOrd ered By: Dr. Black on 09-11-2022 Lymphocytes Auto (Unsp spec) [#/Vol] 1.13 10*3/uL 0.83-4.51 [facility] Basophil percentageOrdered B y: Dr. Black on 09-11-2022 Basophil percentage 325 mg/dL 74-106 [facility] Basophil percentage 7.1 g/dL 6.4-8.2 [facility] Basophil percentage 0.60 mg/dL 0.20-1.00 [facility] Basophil percentage 134 mmol/L 136-145 [facility] Basophil percentage 3.9 mmol/L 3.5-5.1 [facility] Basophil percentage 100 mmol/L 98-107 [facility] Basophil percentage 1.2 mmol/L 0.4-2.0 [facility] Basophils (Bld) [#/Vol] 14.8 10*3/uL 4.4-11.0 [facility] Basophils (Bld) [#/Vol] 12.7 10*3/uL 2.0-7.7 [facility] Basophils/100 WBC (Bld) 85.8 % 47-70 [facility] Basophils/100 WBC (Bld) 0.8 % 0-5 [facility] Basophils/100 WBC (Bld) 0.6 % 0-1 [facility] Bilirubin [Mass/Vol] 0.60 mg/dL 0.20-1.00 [facility] Comment on above: For patients on eltr ombopag therapy, use of Dimension [place] TBIL is not recommended. Chloride [Moles/Vol] 100 mmol/L 98-107 [facility] Eosinophils/100 WBC (Bld) 0.8 % 0-5 [facility] Glucose [Mass/Vol] 325 mg/dL 74-106 [facility] Comment on above: Glucose result great er than or equal to 200 mg/dLsuggests DIABETES MELLITUS per A.D.A. criteria. Lactate [Moles/Vol] 1.2 mmol/L 0.4-2.0 [facility] Neutrophils (Bld) [#/Vol] 12.7 10*3/uL 2.0-7.7 [facility] Neutrophils/100 WBC (Bld) 85.8 % 47-70 [facility] Potassium [Moles/Vol] 3.9 mmol/L 3.5-5.1 [facility] Protein [Mass/Vol] 7.1 g/dL 6.4-8.2 [facility] Sodium [Moles/Vol] 134 mmol/L 136-145 [facility] WBC (Bld) [#/Vol] 14.8 10*3/uL 4.4-11.0 [facility] Basophil percentage 0 SEEN /hpf 0-5 [facility] Bilirubin Test strip Ql (U)O rdered By: Dr. Black on 09-11-2022 Bilirubin Ql (U) Negative Negative [facility] Blood erythrocytes count (nu mber/volume)Ordered By: Dr. Black on 09-11-2022 RBC (Bld) [#/Vol] 5.71 10*6/uL 4.2-5.4 [facility] Blood hemoglobin measurement (mass/volume)Ordered By: Dr. Black on 09-11-2022 Hemoglobin (Bld) [Mass/Vol] 15.7 g/dL 12.0-15.0 [facility] Blood lymphocytes/100 leukoc ytesOrdered By: Dr. Black on 09-11-2022 Lymphocytes/100 WBC (Bld) 7.6 % 19-41 [facility] Blood monocytes/100 leukocyt esOrdered By: Dr. Black on 09-11-2022 Monocytes/100 WBC (Bld) 4.7 % 0-10 [facility] Blood platelet mean volumeOr dered By: Dr. Black on 09-11-2022 Platelet mean volume (Bld) [Entitic vol] 9.3 fL 6.2-12.0 [facility] Determination of erythrocyte mean corpuscular volume (MCV)Ordered By: Dr. Black on 09-11-2022 MCV (RBC) [Entitic vol] 83.7 fL 81-99 [facility] Hematocrit Auto (Bld) [Volum e fraction]Ordered By: Dr. Black on 09-11-2022 Hematocrit (Bld) [Volume fraction] 47.8 % 37-47 [facility] Ketones Test strip Ql (U)Ord ered By: Dr. Black on 09-11-2022 Ketones Ql (U) Negative Negative [facility] Laboratory - Chemistry and C hemistry - challengeOrdered By: Dr. Black on 09-11-2022 ALP [Catalytic activity/Vol] 115 U/L 45-117 [facility] ALT [Catalytic activity/Vol] 21 U/L 13-56 [facility] CO2 [Moles/Vol] 31.0 mmol/L 21.0-32.0 [facility] Globulin (S) [Mass/Vol] 4.1 g/dL 2.2-4.2 [facility] Lipase [Catalytic activity/Vol] 172 U/L 73-393 [facility] Urea nitrogen/Creatinine [Mass ratio] 14.1 mg/mg 10-20 [facility] Laboratory - Hematology and Cell countsOrdered By: Dr. Black on 09-11-2022 Erythrocyte distribution width (RBC) [Entitic vol] 38.4 fL 35.1-43.9 [facility] Erythrocyte distribution width (RBC) [Ratio] 12.8 % 11.6-14.6 [facility] Immature granulocytes/100 WBC (Bld) 0.500 % 0.0-0.9 [facility] Comment on above: IG% - Immature Granu locytes (promyelocytes, myelocytes and metamyelocytes) > 1% indicates that a LEFT SHIFT is Present. MCH (RBC) [Entitic mass] 27.5 pg 27.0-32.0 [facility] Nucleated RBC/100 WBC (Bld) [Ratio] 0 % 0-5 [facility] MCHC Auto (RBC) [Mass/Vol]Or dered By: Dr. Black on 09-11-2022 MCHC (RBC) [Mass/Vol] 32.8 g/dL 32-36 [facility] Mucus LM Ql (Urine sed)Order ed By: Dr. Black on 09-11-2022 Mucus Ql (Urine sed) 0 SEEN /hpf [facility] Nitrite Test strip Ql (U)Ord ered By: Dr. Black on 09-11-2022 Nitrite Ql (U) Negative Negative [facility] No Panel InformationOrdered By: Dr. Black on 09-11-2022 Estimated Creatinine Clearance Calc 91.16 ml/min [facility] Estimated GFR (MDRD) Amer 112 mL/min >60 [facility] Comment on above: GFR Calc Estimated GFR (MDRD) Non-Af Amer 93 mL/min >60 [facility] Comment on above: Non- GFR Calc 27.5 pg 27.0-32.0 [facility] 12.8 % 11.6-14.6 [facility] 38.4 fl 35.1-43.9 [facility] 0.500 % 0.0-0.9 [facility] 0 % 0-5 [facility] 93 mL/min >60 [facility] 112 mL/min >60 [facility] 91.16 ml/min [facility] 14.1 RATIO 10-20 [facility] 4.1 g/dL 2.2-4.2 [facility] 172 U/L 73-393 [facility] 115 U/L 45-117 [facility] 21 U/L 13-56 [facility] 31.0 mmol/L 21.0-32.0 [facility] Platelets bldOrdered By: Dr. Black on 09-11-2022 Platelets (Bld) [#/Vol] 290 10*3/uL 150-450 [facility] Protein Test strip Ql (U)Ord ered By: Dr. Black on 09-11-2022 Protein Ql (U) 100 mg/dl Negative [facility] Serum or plasma albumin xiomara urement (mass/volume)Ordered By: Dr. Black on 09-11-2022 Albumin [Mass/Vol] 3.0 g/dL 3.2-5.0 [facility] Serum or plasma albumin/glob ulin mass ratioOrdered By: Dr. Black on 09-11-2022 Albumin/Globulin [Mass ratio] 0.7 {ratio} 0.9-2.4 [facility] Serum or plasma calcium xiomara urement (mass/volume)Ordered By: Dr. Black on 09-11-2022 Calcium [Mass/Vol] 8.9 mg/dL 8.5-10.1 [facility] Serum or plasma creatinine m easurement (mass/volume)Ordered By: Dr. Black on 09-11-2022 Creatinine [Mass/Vol] 0.71 mg/dL 0.55-1.02 [facility] Comment on above: The validity of the calculated GFR & GFRAA in patients over 70 years has not been determined. Clinical correlation is essential. Serum or plasma urea nitroge n measurement (mass/volume)Ordered By: Dr. Black on 09-11-2022 Urea nitrogen [Mass/Vol] 10 mg/dL 7-18 [facility] Squamous epithelial cells de tection in urine sediment by light microscopyOrdered By: Dr. Black on 09-11-2022 Epithelial cells.squamous LM Ql (Urine sed) 0-5 SEEN /hpf 5-10 [facility] Thin prep Papanicolaou smear with manual screeningOrdered By: Dr. Black on 09-11-2022 Thin prep Papanicolaou smear with manual screening 18 U/L 15-37 [facility] Thin prep Papanicolaou smear with manual screening 3 5-15 [facility] Urine blood detectionOrdered By: Dr. Black on 09-11-2022 RBC Ql (U) 25 /ul Negative [facility] RBC Ql (U) 0 SEEN /hpf 0-5 [facility] Urine clarityOrdered By: Dr. Black on 09-11-2022 Clarity (U) Clear Clear [facility] Urine color determinationOrd ered By: Dr. Black on 09-11-2022 Color (U) Yellow Yellow [facility] Urine glucose detectionOrder ed By: Dr. Black on 09-11-2022 Glucose Ql (U) 1000 mg/dl Normal [facility] Urine leukocyte esterase det ection by dipstickOrdered By: Dr. Black on 09-11-2022 Leukocyte esterase Test strip Ql (U) Negative Negative [facility] Urine pHOrdered By: Dr. Artemio jean on 09-11-2022 pH (U) 7.0 [pH] 5.0 - 8.0 [facility] Urine sediment bacteria coun t by microscopy (number/high power field)Ordered By: Dr. Black on 09-11-2022 Bacteria LM.HPF (Urine sed) [#/Area] 0 /[HPF] None Seen [facility] Urine specific gravity measu rementOrdered By: Dr. Black on 09-11-2022 Specific gravity (U) [Rel density] 1.015 1.002-1.03 0 [facility] Urobilinogen Auto test strip Ql (U)Ordered By: Dr. Black on 09-11-2022 Urobilinogen Ql (U) Normal mg/dl Normal [facility] Absolute lymphocyte countOrd ered By: Dr. Christina on 09-09-2022 Lymphocytes Auto (Unsp spec) [#/Vol] 1.70 10*3/uL 0.83-4.51 [facility] Basophil percentageOrdered B y: Dr. Christina on 09-09-2022 Basophil percentage 0-5 SEEN /hpf 0-5 [facility] Basophil percentage 306 mg/dL 74-106 [facility] Basophil percentage 6.7 g/dL 6.4-8.2 [facility] Basophil percentage 0.70 mg/dL 0.20-1.00 [facility] Basophil percentage 134 mmol/L 136-145 [facility] Basophil percentage 3.5 mmol/L 3.5-5.1 [facility] Basophil percentage 98 mmol/L 98-107 [facility] Basophils (Bld) [#/Vol] 9.0 10*3/uL 4.4-11.0 [facility] Basophils (Bld) [#/Vol] 6.5 10*3/uL 2.0-7.7 [facility] Basophils/100 WBC (Bld) 1.0 % 0-1 [facility] Basophils/100 WBC (Bld) 72.3 % 47-70 [facility] Basophils/100 WBC (Bld) 1.4 % 0-5 [facility] Bilirubin [Mass/Vol] 0.70 mg/dL 0.20-1.00 [facility] Comment on above: For patients on eltr ombopag therapy, use of Dimension [place] TBIL is not recommended. Chloride [Moles/Vol] 98 mmol/L 98-107 [facility] Eosinophils/100 WBC (Bld) 1.4 % 0-5 [facility] Glucose [Mass/Vol] 306 mg/dL 74-106 [facility] Comment on above: Glucose result great er than or equal to 200 mg/dLsuggests DIABETES MELLITUS per A.D.A. criteria. Neutrophils (Bld) [#/Vol] 6.5 10*3/uL 2.0-7.7 [facility] Neutrophils/100 WBC (Bld) 72.3 % 47-70 [facility] Potassium [Moles/Vol] 3.5 mmol/L 3.5-5.1 [facility] Protein [Mass/Vol] 6.7 g/dL 6.4-8.2 [facility] Sodium [Moles/Vol] 134 mmol/L 136-145 [facility] WBC (Bld) [#/Vol] 9.0 10*3/uL 4.4-11.0 [facility] Bilirubin Test strip Ql (U)O rdered By: Dr. Christina on 09-09-2022 Bilirubin Ql (U) Negative Negative [facility] Blood erythrocytes count (nu mber/volume)Ordered By: Dr. Christina on 09-09-2022 RBC (Bld) [#/Vol] 5.26 10*6/uL 4.2-5.4 [facility] Blood hemoglobin measurement (mass/volume)Ordered By: Dr. Christina on 09-09-2022 Hemoglobin (Bld) [Mass/Vol] 14.3 g/dL 12.0-15.0 [facility] Blood lymphocytes/100 leukoc ytesOrdered By: Dr. Christina on 09-09-2022 Lymphocytes/100 WBC (Bld) 19.0 % 19-41 [facility] Blood monocytes/100 leukocyt esOrdered By: Dr. Christina on 09-09-2022 Monocytes/100 WBC (Bld) 6.0 % 0-10 [facility] Blood platelet mean volumeOr dered By: Dr. Christina on 09-09-2022 Platelet mean volume (Bld) [Entitic vol] 9.2 fL 6.2-12.0 [facility] Determination of erythrocyte mean corpuscular volume (MCV)Ordered By: Dr. Christina on 09-09-2022 MCV (RBC) [Entitic vol] 83.1 fL 81-99 [facility] Direct bilirubinOrdered By: Dr. Christina on 09-09-2022 Bilirubin.direct [Mass/Vol] 0.19 mg/dL 0.00-0.30 [facility] Hematocrit Auto (Bld) [Volum e fraction]Ordered By: Dr. Christina on 09-09-2022 Hematocrit (Bld) [Volume fraction] 43.7 % 37-47 [facility] Ketones Test strip Ql (U)Ord ered By: Dr. Christina on 09-09-2022 Ketones Ql (U) Negative Negative [facility] Laboratory - Chemistry and C hemistry - challengeOrdered By: Dr. Christina on 09-09-2022 ALP [Catalytic activity/Vol] 109 U/L 45-117 [facility] ALT [Catalytic activity/Vol] 18 U/L 13-56 [facility] CO2 [Moles/Vol] 31.0 mmol/L 21.0-32.0 [facility] Globulin (S) [Mass/Vol] 3.9 g/dL 2.2-4.2 [facility] Lipase [Catalytic activity/Vol] 47 U/L 73-393 [facility] Urea nitrogen/Creatinine [Mass ratio] 9.0 mg/mg 10-20 [facility] Laboratory - Hematology and Cell countsOrdered By: Dr. Christina on 09-09-2022 Erythrocyte distribution width (RBC) [Entitic vol] 38.2 fL 35.1-43.9 [facility] Erythrocyte distribution width (RBC) [Ratio] 12.7 % 11.6-14.6 [facility] Immature granulocytes/100 WBC (Bld) 0.300 % 0.0-0.9 [facility] Comment on above: IG% - Immature Granu locytes (promyelocytes, myelocytes and metamyelocytes) > 1% indicates that a LEFT SHIFT is Present. MCH (RBC) [Entitic mass] 27.2 pg 27.0-32.0 [facility] Nucleated RBC/100 WBC (Bld) [Ratio] 0 % 0-5 [facility] MCHC Auto (RBC) [Mass/Vol]Or dered By: Dr. Christina on 09-09-2022 MCHC (RBC) [Mass/Vol] 32.7 g/dL 32-36 [facility] Mucus LM Ql (Urine sed)Order ed By: Dr. Christina on 09-09-2022 Mucus Ql (Urine sed) 0 SEEN /hpf [facility] Nitrite Test strip Ql (U)Ord ered By: Dr. Christina on 09-09-2022 Nitrite Ql (U) Negative Negative [facility] No Panel InformationOrdered By: Dr. Christina on 09-09-2022 Estimated Creatinine Clearance Calc 96.60 ml/min [facility] Estimated GFR (MDRD) Amer 120 mL/min >60 [facility] Comment on above: GFR Calc Estimated GFR (MDRD) Non-Af Amer 99 mL/min >60 [facility] Comment on above: Non- GFR Calc Troponin I High Sensitivity 14 pg/mL 3.0-54.0 [facility] Comment on above: Please Note: New Junie t Units and Gender Specific Reference Ranges. For more information see Policy Stat Procedure [place] High Sensitivity Troponin (TNIH) and attachments. 27.2 pg 27.0-32.0 [facility] 12.7 % 11.6-14.6 [facility] 38.2 fl 35.1-43.9 [facility] 0.300 % 0.0-0.9 [facility] 0 % 0-5 [facility] 99 mL/min >60 [facility] 120 mL/min >60 [facility] 96.60 ml/min [facility] 9.0 RATIO 10-20 [facility] 3.9 g/dL 2.2-4.2 [facility] 47 U/L 73-393 [facility] 14 pg/mL 3.0-54.0 [facility] 109 U/L 45-117 [facility] 18 U/L 13-56 [facility] 31.0 mmol/L 21.0-32.0 [facility] Platelets bldOrdered By: Dr. Christina on 09-09-2022 Platelets (Bld) [#/Vol] 290 10*3/uL 150-450 [facility] Protein Test strip Ql (U)Ord ered By: Dr. Christina on 09-09-2022 Protein Ql (U) 100 mg/dl Negative [facility] Serum or plasma albumin xiomara urement (mass/volume)Ordered By: Dr. Christina on 09-09-2022 Albumin [Mass/Vol] 2.8 g/dL 3.2-5.0 [facility] Serum or plasma calcium xiomara urement (mass/volume)Ordered By: Dr. Christina on 09-09-2022 Calcium [Mass/Vol] 8.8 mg/dL 8.5-10.1 [facility] Serum or plasma creatinine m easurement (mass/volume)Ordered By: Dr. Christina on 09-09-2022 Creatinine [Mass/Vol] 0.67 mg/dL 0.55-1.02 [facility] Comment on above: The validity of the calculated GFR & GFRAA in patients over 70 years has not been determined. Clinical correlation is essential. Serum or plasma urea nitroge n measurement (mass/volume)Ordered By: Dr. Christina on 09-09-2022 Urea nitrogen [Mass/Vol] 6 mg/dL 7-18 [facility] Squamous epithelial cells de tection in urine sediment by light microscopyOrdered By: Dr. Christina on 09-09-2022 Epithelial cells.squamous LM Ql (Urine sed) 5-10 SEEN /hpf 5-10 [facility] Thin prep Papanicolaou smear with manual screeningOrdered By: Dr. Christina on 09-09-2022 Thin prep Papanicolaou smear with manual screening 18 U/L 15-37 [facility] Thin prep Papanicolaou smear with manual screening 5 5-15 [facility] Urine blood detectionOrdered By: Dr. Christina on 09-09-2022 RBC Ql (U) 25 /ul Negative [facility] RBC Ql (U) 0-5 SEEN /hpf 0-5 [facility] Urine clarityOrdered By: Dr. Christina on 09-09-2022 Clarity (U) Sl. Cloudy Clear [facility] Urine color determinationOrd ered By: Dr. Christina on 09-09-2022 Color (U) Yellow Yellow [facility] Urine glucose detectionOrder ed By: Dr. Christina on 09-09-2022 Glucose Ql (U) 1000 mg/dl Normal [facility] Urine leukocyte esterase det ection by dipstickOrdered By: Dr. Christina on 09-09-2022 Leukocyte esterase Test strip Ql (U) 25 /ul Negative [facility] Urine pHOrdered By: Dr. Davis maxwell on 09-09-2022 pH (U) 8.0 [pH] 5.0 - 8.0 [facility] Urine sediment bacteria coun t by microscopy (number/high power field)Ordered By: Dr. Christina on 09-09-2022 Bacteria LM.HPF (Urine sed) [#/Area] 0 /[HPF] None Seen [facility] Urine specific gravity measu rementOrdered By: Dr. Christina on 09-09-2022 Specific gravity (U) [Rel density] 1.015 1.002-1.03 0 [facility] Urobilinogen Auto test strip Ql (U)Ordered By: Dr. Christina on 09-09-2022 Urobilinogen Ql (U) Normal mg/dl Normal [facility] Absolute lymphocyte countOrd ered By: Dr. Hanley on 09-05-2022 Lymphocytes Auto (Unsp spec) [#/Vol] 1.04 10*3/uL 0.83-4.51 [facility] Basophil percentageOrdered B y: Dr. Hanley on 09-05-2022 Basophil percentage 330 mg/dL 74-106 [facility] Basophil percentage 134 mmol/L 136-145 [facility] Basophil percentage 3.7 mmol/L 3.5-5.1 [facility] Basophil percentage 100 mmol/L 98-107 [facility] Basophils (Bld) [#/Vol] 8.5 10*3/uL 4.4-11.0 [facility] Basophils (Bld) [#/Vol] 6.8 10*3/uL 2.0-7.7 [facility] Basophils/100 WBC (Bld) 0.8 % 0-1 [facility] Basophils/100 WBC (Bld) 80.1 % 47-70 [facility] Chloride [Moles/Vol] 100 mmol/L 98-[address] [facility] Eosinophils/100 WBC (Bld) 0.8 % 0-5 [facility] Glucose [Mass/Vol] 330 mg/dL 74-106 [facility] Comment on above: Glucose result great er than or equal to 200 mg/dLsuggests DIABETES MELLITUS per A.D.A. criteria. Neutrophils (Bld) [#/Vol] 6.8 10*3/uL 2.0-7.7 [facility] Neutrophils/100 WBC (Bld) 80.1 % 47-70 [facility] Potassium [Moles/Vol] 3.7 mmol/L 3.5-5.1 [facility] Sodium [Moles/Vol] 134 mmol/L 136-145 [facility] WBC (Bld) [#/Vol] 8.5 10*3/uL 4.4-11.0 [facility] Blood erythrocytes count (nu mber/volume)Ordered By: Dr. Hanley on 09-05-2022 RBC (Bld) [#/Vol] 5.21 10*6/uL 4.2-5.4 [facility] Blood hemoglobin measurement (mass/volume)Ordered By: Dr. Hanley on 09-05-2022 Hemoglobin (Bld) [Mass/Vol] 14.3 g/dL 12.0-15.0 [facility] Blood lymphocytes/100 leukoc ytesOrdered By: Dr. Hanley on 09-05-2022 Lymphocytes/100 WBC (Bld) 12.2 % 19-41 [facility] Blood monocytes/100 leukocyt esOrdered By: Dr. Hanley on 09-05-2022 Monocytes/100 WBC (Bld) 5.7 % 0-10 [place] Blood platelet mean volumeOr dered By: Dr. Hanley on 09-05-2022 Platelet mean volume (Bld) [Entitic vol] 9.6 fL 6.2-12.0 [facility] Determination of erythrocyte mean corpuscular volume (MCV)Ordered By: Dr. Hanley on 09-05-2022 MCV (RBC) [Entitic vol] 84.3 fL 81-99 [facility] Hematocrit Auto (Bld) [Volum e fraction]Ordered By: Dr. Hanley on 09-05-2022 Hematocrit (Bld) [Volume fraction] 43.9 % 37-47 [facility] Laboratory - Chemistry and C hemistry - challengeOrdered By: Dr. Hanley on 09-05-2022 CO2 [Moles/Vol] 30.0 mmol/L 21.0-32.0 [facility] Urea nitrogen/Creatinine [Mass ratio] 5.7 mg/mg 10-20 [facility] Laboratory - Hematology and Cell countsOrdered By: Dr. Hanley on 09-05-2022 Erythrocyte distribution width (RBC) [Entitic vol] 38.6 fL 35.1-43.9 [facility] Erythrocyte distribution width (RBC) [Ratio] 12.6 % 11.6-14.6 [facility] Immature granulocytes/100 WBC (Bld) 0.400 % 0.0-0.9 [facility] Comment on above: IG% - Immature Granu locytes (promyelocytes, myelocytes and metamyelocytes) > 1% indicates that a LEFT SHIFT is Present. MCH (RBC) [Entitic mass] 27.4 pg 27.0-32.0 [facility] Nucleated RBC/100 WBC (Bld) [Ratio] 0 % 0-5 [facility] Laboratory - Microbiology an d Antimicrobial susceptibilityOrdered By: Dr. Rawls on 09-05-2022 Bacteria identified Cx Nom (Bld) No growth in 5 days. [facility] MCHC Auto (RBC) [Mass/Vol]Or dered By: Dr. Hanley on 09-05-2022 MCHC (RBC) [Mass/Vol] 32.6 g/dL 32-36 [facility] No Panel InformationOrdered By: Dr. Hanley on 09-05-2022 Estimated Creatinine Clearance Calc 92.46 ml/min [facility] Estimated GFR (MDRD) Amer 114 mL/min >60 [facility] Comment on above: GFR Calc Estimated GFR (MDRD) Non-Af Amer 94 mL/min >60 [facility] Comment on above: Non- GFR Calc 27.4 pg 27.0-32.0 [facility] 12.6 % 11.6-14.6 [facility] 38.6 fl 35.1-43.9 [facility] 0.400 % 0.0-0.9 [facility] 0 % 0-5 [facility] 94 mL/min >60 [facility] 114 mL/min >60 [facility] 92.46 ml/min [facility] 5.7 RATIO 10-20 [facility] 30.0 mmol/L 21.0-32.0 [facility] No Panel InformationOrdered By: Dr. Rawls on 09-05-2022 No growth in 5 days. [facility] Platelets bldOrdered By: Dr. Hanley on 09-05-2022 Platelets (Bld) [#/Vol] 234 10*3/uL 150-450 [facility] Serum or plasma calcium xiomara urement (mass/volume)Ordered By: Dr. Hanley on 09-05-2022 Calcium [Mass/Vol] 9.1 mg/dL 8.5-10.1 [facility] Serum or plasma creatinine m easurement (mass/volume)Ordered By: Dr. Hanley on 09-05-2022 Creatinine [Mass/Vol] 0.70 mg/dL 0.55-1.02 [facility] Comment on above: The validity of the calculated GFR & GFRAA in patients over 70 years has not been determined. Clinical correlation is essential. Serum or plasma urea nitroge n measurement (mass/volume)Ordered By: Dr. Hanley on 09-05-2022 Urea nitrogen [Mass/Vol] 4 mg/dL 7-18 [facility] Thin prep Papanicolaou smear with manual screeningOrdered By: Dr. Hanley on 09-05-2022 Thin prep Papanicolaou smear with manual screening 4 5-15 [facility] Glucose Glucometer (BldC) [M ass/Vol]Ordered By: Dr. Forde on 09-02-2022 Glucose [Mass/Vol] 211 mg/dL 74-106 [facility] Comment on above: MANAGEMENT OF PATIEN T CARE PER NURSING PROTOCOL Absolute lymphocyte countOrd ered By: Dr. Forde on 08-31-2022 Lymphocytes Auto (Unsp spec) [#/Vol] 1.81 10*3/uL 0.83-4.51 [facility] Bacteria identified Cx Nom ( U)Ordered By: Dr. Rawls on 08-31-2022 Culture, urine Positive [facility] Basophil percentageOrdered B y: Dr. Forde on 08-31-2022 Basophil percentage 221 mg/dL 74-106 [facility] Basophil percentage 137 mmol/L 136-145 [facility] Basophil percentage 3.7 mmol/L 3.5-5.1 [facility] Basophil percentage 108 mmol/L 98-107 [facility] Basophils (Bld) [#/Vol] 6.8 10*3/uL 4.4-11.0 [facility] Basophils (Bld) [#/Vol] 4.4 10*3/uL 2.0-7.7 [facility] Basophils/100 WBC (Bld) 0.7 % 0-1 [facility] Basophils/100 WBC (Bld) 64.6 % 47-70 [facility] Basophils/100 WBC (Bld) 1.3 % 0-5 [facility] Chloride [Moles/Vol] 108 mmol/L 98-107 [facility] Eosinophils/100 WBC (Bld) 1.3 % 0-5 [facility] Glucose [Mass/Vol] 221 mg/dL 74-106 [facility] Comment on above: Glucose result great er than or equal to 200 mg/dLsuggests DIABETES MELLITUS per A.D.A. criteria. Neutrophils (Bld) [#/Vol] 4.4 10*3/uL 2.0-7.7 [facility] Neutrophils/100 WBC (Bld) 64.6 % 47-70 [facility] Potassium [Moles/Vol] 3.7 mmol/L 3.5-5.1 [facility] Sodium [Moles/Vol] 137 mmol/L 136-145 [facility] WBC (Bld) [#/Vol] 6.8 10*3/uL 4.4-11.0 [facility] Blood erythrocytes count (nu mber/volume)Ordered By: Dr. Forde on 08-31-2022 RBC (Bld) [#/Vol] 4.86 10*6/uL 4.2-5.4 [facility] Blood hemoglobin measurement (mass/volume)Ordered By: Dr. Forde on 08-31-2022 Hemoglobin (Bld) [Mass/Vol] 13.6 g/dL 12.0-15.0 [facility] Blood lymphocytes/100 leukoc ytesOrdered By: Dr. Forde on 08-31-2022 Lymphocytes/100 WBC (Bld) 26.6 % 19-41 [facility] Blood monocytes/100 leukocyt esOrdered By: Dr. Forde on 08-31-2022 Monocytes/100 WBC (Bld) 6.5 % 0-10 [facility] Blood platelet mean volumeOr dered By: Dr. Forde on 08-31-2022 Platelet mean volume (Bld) [Entitic vol] 9.1 fL 6.2-12.0 [facility] Culture, urineOrdered By: Dr Carmelo Rawls on 08-31-2022 Bacteria identified Cx Nom (U) Positive [facility] Determination of erythrocyte mean corpuscular volume (MCV)Ordered By: Dr. Forde on 08-31-2022 MCV (RBC) [Entitic vol] 85.4 fL 81-99 [facility] Hematocrit Auto (Bld) [Volum e fraction]Ordered By: Dr. Forde on 08-31-2022 Hematocrit (Bld) [Volume fraction] 41.5 % 37-47 [facility] Laboratory - Chemistry and C hemistry - challengeOrdered By: Dr. Forde on 08-31-2022 CO2 [Moles/Vol] 26.0 mmol/L 21.0-32.0 [facility] Urea nitrogen/Creatinine [Mass ratio] 14.6 mg/mg 10-20 [facility] Laboratory - Hematology and Cell countsOrdered By: Dr. Forde on 08-31-2022 Erythrocyte distribution width (RBC) [Entitic vol] 39.9 fL 35.1-43.9 [facility] Erythrocyte distribution width (RBC) [Ratio] 13.0 % 11.6-14.6 [facility] Immature granulocytes/100 WBC (Bld) 0.300 % 0.0-0.9 [facility] Comment on above: IG% - Immature Granu locytes (promyelocytes, myelocytes and metamyelocytes) > 1% indicates that a LEFT SHIFT is Present. MCH (RBC) [Entitic mass] 28.0 pg 27.0-32.0 [facility] Nucleated RBC/100 WBC (Bld) [Ratio] 0 % 0-5 [facility] MCHC Auto (RBC) [Mass/Vol]Or dered By: Dr. Forde on 08-31-2022 MCHC (RBC) [Mass/Vol] 32.8 g/dL 32-36 [facility] No Panel InformationOrdered By: Dr. Forde on 08-31-2022 Estimated Creatinine Clearance Calc 104.39 ml/min [facility] Estimated GFR (MDRD) Amer 131 mL/min >60 [facility] Comment on above: GFR Calc Estimated GFR (MDRD) Non-Af Amer 109 mL/min >60 [facility] Comment on above: Non- GFR Calc 28.0 pg 27.0-32.0 [facility] 13.0 % 11.6-14.6 [facility] 39.9 fl 35.1-43.9 [facility] 0.300 % 0.0-0.9 [facility] 0 % 0-5 [facility] 109 mL/min >60 [facility] 131 mL/min >60 [facility] 104.39 ml/min [facility] 14.6 RATIO 10-20 [facility] 26.0 mmol/L 21.0-32.0 [facility] Platelets bldOrdered By: Dr. Forde on 08-31-2022 Platelets (Bld) [#/Vol] 227 10*3/uL 150-450 [facility] Serum or plasma calcium xiomara urement (mass/volume)Ordered By: Dr. Forde on 08-31-2022 Calcium [Mass/Vol] 8.8 mg/dL 8.5-10.1 [facility] Serum or plasma creatinine m easurement (mass/volume)Ordered By: Dr. Forde on 08-31-2022 Creatinine [Mass/Vol] 0.62 mg/dL 0.55-1.02 [facility] Comment on above: The validity of the calculated GFR & GFRAA in patients over 70 years has not been determined. Clinical correlation is essential. Serum or plasma urea nitroge n measurement (mass/volume)Ordered By: Dr. Forde on 08-31-2022 Urea nitrogen [Mass/Vol] 9 mg/dL 7-18 [facility] Thin prep Papanicolaou smear with manual screeningOrdered By: Dr. Forde on 08-31-2022 Thin prep Papanicolaou smear with manual screening 3 5-15 [facility] Absolute lymphocyte countOrd ered By: Dr. Rawls on 08-30-2022 Lymphocytes Auto (Unsp spec) [#/Vol] 1.33 10*3/uL 0.83-4.51 [facility] Basophil percentageOrdered B y: Dr. Rawls on 08-30-2022 Basophil percentage 1.1 mmol/L 0.4-2.0 [facility] Lactate [Moles/Vol] 1.1 mmol/L 0.4-2.0 [facility] Basophil percentage 7.1 g/dL 6.4-8.2 [facility] Basophil percentage 0.70 mg/dL 0.20-1.00 [facility] Basophils/100 WBC (Bld) 0.6 % 0-1 [facility] Bilirubin [Mass/Vol] 0.70 mg/dL 0.20-1.00 [facility] Comment on above: For patients on eltr ombopag therapy, use of Dimension [place] TBIL is not recommended. Chloride [Moles/Vol] 96 mmol/L 98-107 [facility] Eosinophils/100 WBC (Bld) 0.5 % 0-5 [facility] Glucose [Mass/Vol] 400 mg/dL 74-106 [facility] Comment on above: Glucose result great er than or equal to 200 mg/dLsuggests DIABETES MELLITUS per A.D.A. criteria. Lactate [Moles/Vol] 2.2 mmol/L 0.4-2.0 [facility] Comment on above: Critical Result(s) C alled at: 15:31:02 08/30/2022 by: Eileen Mauricio to [employer]. Results read back by same. Neutrophils (Bld) [#/Vol] 6.7 10*3/uL 2.0-7.7 [facility] Neutrophils/100 WBC (Bld) 77.4 % 47-70 [facility] Potassium [Moles/Vol] 4.0 mmol/L 3.5-5.1 [facility] Protein [Mass/Vol] 7.1 g/dL 6.4-8.2 [facility] Sodium [Moles/Vol] 132 mmol/L 136-145 [facility] WBC (Bld) [#/Vol] 8.6 10*3/uL 4.4-11.0 [facility] Blood erythrocytes count (nu mber/volume)Ordered By: Dr. Rawls on 08-30-2022 RBC (Bld) [#/Vol] 5.43 10*6/uL 4.2-5.4 [facility] Blood hemoglobin measurement (mass/volume)Ordered By: Dr. Rawls on 08-30-2022 Hemoglobin (Bld) [Mass/Vol] 15.0 g/dL 12.0-15.0 [facility] Blood lymphocytes/100 leukoc ytesOrdered By: Dr. Rawls on 08-30-2022 Lymphocytes/100 WBC (Bld) 15.4 % 19-41 [facility] Blood monocytes/100 leukocyt esOrdered By: Dr. Rawls on 08-30-2022 Monocytes/100 WBC (Bld) 5.9 % 0-10 [facility] Blood platelet mean volumeOr dered By: Dr. Rawls on 08-30-2022 Platelet mean volume (Bld) [Entitic vol] 9.1 fL 6.2-12.0 [facility] Determination of erythrocyte mean corpuscular volume (MCV)Ordered By: Dr. Rawls on 08-30-2022 MCV (RBC) [Entitic vol] 83.6 fL 81-99 [facility] Hematocrit Auto (Bld) [Volum e fraction]Ordered By: Dr. Rawls on 08-30-2022 Hematocrit (Bld) [Volume fraction] 45.4 % 37-47 [facility] INR in Blood by Coagulation assayOrdered By: Dr. Rawls on 08-30-2022 INR Coag (Bld) [Relative time] 1.0 {INR} [facility] Laboratory - Chemistry and C hemistry - challengeOrdered By: Dr. Rawls on 08-30-2022 ALP [Catalytic activity/Vol] 133 U/L 45-117 [facility] ALT [Catalytic activity/Vol] 17 U/L 13-56 [facility] CO2 [Moles/Vol] 31.0 mmol/L 21.0-32.0 [facility] Globulin (S) [Mass/Vol] 4.1 g/dL 2.2-4.2 [facility] Urea nitrogen/Creatinine [Mass ratio] 10.1 mg/mg 10-20 [facility] Laboratory - CoagulationOrde red By: Dr. Rawls on 08-30-2022 aPTT Coag (Bld) [Time] 26.7 s 24.1-36.2 [facility] PT Coag (PPP) [Time] 12.6 s 11.7-14.9 [facility] Laboratory - Hematology and Cell countsOrdered By: Dr. Rawls on 08-30-2022 Erythrocyte distribution width (RBC) [Entitic vol] 39.0 fL 35.1-43.9 [facility] Erythrocyte distribution width (RBC) [Ratio] 12.9 % 11.6-14.6 [facility] Immature granulocytes/100 WBC (Bld) 0.200 % 0.0-0.9 [facility] Comment on above: IG% - Immature Granu locytes (promyelocytes, myelocytes and metamyelocytes) > 1% indicates that a LEFT SHIFT is Present. MCH (RBC) [Entitic mass] 27.6 pg 27.0-32.0 [facility] Nucleated RBC/100 WBC (Bld) [Ratio] 0 % 0-5 [facility] MCHC Auto (RBC) [Mass/Vol]Or dered By: Dr. Rawls on 08-30-2022 MCHC (RBC) [Mass/Vol] 33.0 g/dL 32-36 [facility] No Panel InformationOrdered By: Dr. Rawls on 08-30-2022 Estimated Creatinine Clearance Calc 65.38 ml/min [facility] Estimated GFR (MDRD) Amer 76 mL/min >60 [facility] Comment on above: GFR Calc Estimated GFR (MDRD) Non-Af Amer 63 mL/min >60 [facility] Comment on above: Non- GFR Calc 12.6 SECONDS 11.7-14.9 [facility] 26.7 Seconds 24.1-36.2 [facility] 4.1 g/dL 2.2-4.2 [facility] 133 U/L 45-117 [facility] 17 U/L 13-56 [facility] Platelets bldOrdered By: Dr. Rawls on 08-30-2022 Platelets (Bld) [#/Vol] 266 10*3/uL 150-450 [facility] Serum or plasma albumin xiomara urement (mass/volume)Ordered By: Dr. Rawls on 08-30-2022 Albumin [Mass/Vol] 3.0 g/dL 3.2-5.0 [facility] Serum or plasma albumin/glob ulin mass ratioOrdered By: Dr. Rawls on 08-30-2022 Albumin/Globulin [Mass ratio] 0.7 {ratio} 0.9-2.4 [facility] Serum or plasma calcium xiomara urement (mass/volume)Ordered By: Dr. Rawls on 08-30-2022 Calcium [Mass/Vol] 9.1 mg/dL 8.5-10.1 [facility] Serum or plasma creatinine m easurement (mass/volume)Ordered By: Dr. Rawls on 08-30-2022 Creatinine [Mass/Vol] 0.99 mg/dL 0.55-1.02 [facility] Comment on above: The validity of the calculated GFR & GFRAA in patients over 70 years has not been determined. Clinical correlation is essential. Serum or plasma urea nitroge n measurement (mass/volume)Ordered By: Dr. Rawls on 08-30-2022 Urea nitrogen [Mass/Vol] 10 mg/dL 7-18 [facility] Thin prep Papanicolaou smear with manual screeningOrdered By: Dr. Rawls on 08-30-2022 Thin prep Papanicolaou smear with manual screening 15 U/L 15-37 [facility] Thin prep Papanicolaou smear with manual screening 5 5-15 [facility] Whole blood hemoglobin A1c/t otal hemoglobin ratio (mass fraction)Ordered By: Dr. Forde on 08-30-2022 HbA1c (Bld) [Mass fraction] 11.5 % 3.8-5.6 [facility] Comment on above: Normal < 5.7 % Predi abetic 5.7 - 6.4 % Diabetic >or= 6.5 % Please note range changes. Absolute lymphocyte countOrd ered By: Dr. Black on 08-14-2022 Lymphocytes Auto (Unsp spec) [#/Vol] 1.35 10*3/uL 0.83-4.51 [facility] Basophil percentageOrdered B y: Dr. Black on 08-14-2022 Basophil percentage 331 mg/dL 74-106 [facility] Basophil percentage 134 mmol/L 136-145 [facility] Basophil percentage 3.7 mmol/L 3.5-5.1 [facility] Basophil percentage 101 mmol/L 98-107 [facility] Basophils (Bld) [#/Vol] 9.7 10*3/uL 4.4-11.0 [facility] Basophils (Bld) [#/Vol] 7.6 10*3/uL 2.0-7.7 [facility] Basophils/100 WBC (Bld) 0.6 % 0-1 [facility] Basophils/100 WBC (Bld) 78.3 % 47-70 [facility] Basophils/100 WBC (Bld) 0.8 % 0-5 [place] Chloride [Moles/Vol] 101 mmol/L 98-107 [facility] Eosinophils/100 WBC (Bld) 0.8 % 0-5 [facility] Glucose [Mass/Vol] 331 mg/dL 74-106 [facility] Comment on above: Glucose result great er than or equal to 200 mg/dLsuggests DIABETES MELLITUS per A.D.A. criteria. Neutrophils (Bld) [#/Vol] 7.6 10*3/uL 2.0-7.7 [facility] Neutrophils/100 WBC (Bld) 78.3 % 47-70 [facility] Potassium [Moles/Vol] 3.7 mmol/L 3.5-5.1 [facility] Comment on above: Slight Hemolysis, Re sult may be falsely increased. Sodium [Moles/Vol] 134 mmol/L 136-145 [facility] WBC (Bld) [#/Vol] 9.7 10*3/uL 4.4-11.0 [facility] Blood erythrocytes count (nu mber/volume)Ordered By: Dr. lBack on 08-14-2022 RBC (Bld) [#/Vol] 5.16 10*6/uL 4.2-5.4 [facility] Blood hemoglobin measurement (mass/volume)Ordered By: Dr. Black on 08-14-2022 Hemoglobin (Bld) [Mass/Vol] 14.6 g/dL 12.0-15.0 [facility] Blood lymphocytes/100 leukoc ytesOrdered By: Dr. Black on 08-14-2022 Lymphocytes/100 WBC (Bld) 13.9 % 19-41 [facility] Blood monocytes/100 leukocyt esOrdered By: Dr. Black on 08-14-2022 Monocytes/100 WBC (Bld) 5.8 % 0-10 [facility] Blood platelet mean volumeOr dered By: Dr. Black on 08-14-2022 Platelet mean volume (Bld) [Entitic vol] 9.8 fL 6.2-12.0 [facility] Comment on above: FIBRIN NOTED Determination of erythrocyte mean corpuscular volume (MCV)Ordered By: Dr. Black on 08-14-2022 MCV (RBC) [Entitic vol] 83.5 fL 81-99 [place] Hematocrit Auto (Bld) [Volum e fraction]Ordered By: Dr. Black on 08-14-2022 Hematocrit (Bld) [Volume fraction] 43.1 % 37-47 [facility] Laboratory - Chemistry and C hemistry - challengeOrdered By: Dr. Black on 08-14-2022 CO2 [Moles/Vol] 27.0 mmol/L 21.0-32.0 [facility] Urea nitrogen/Creatinine [Mass ratio] 8.6 mg/mg 10-20 [facility] Laboratory - Hematology and Cell countsOrdered By: Dr. Black on 08-14-2022 Erythrocyte distribution width (RBC) [Entitic vol] 37.5 fL 35.1-43.9 [facility] Erythrocyte distribution width (RBC) [Ratio] 12.3 % 11.6-14.6 [facility] Immature granulocytes/100 WBC (Bld) 0.600 % 0.0-0.9 [facility] Comment on above: IG% - Immature Granu locytes (promyelocytes, myelocytes and metamyelocytes) > 1% indicates that a LEFT SHIFT is Present. MCH (RBC) [Entitic mass] 28.3 pg 27.0-32.0 [facility] Nucleated RBC/100 [facility] (Bld) [Ratio] 0.2 % [facility] [Mass/Vol]Or dered By: Dr. Black on 08-14-2022 MCHC (RBC) [Mass/Vol] 33.9 g/dL 32-36 [facility] No Panel InformationOrdered By: Dr. Black on 08-14-2022 Estimated Creatinine Clearance Calc 62.33 ml/min [facility] Estimated GFR (MDRD) Amer 71 mL/min >60 [facility] Comment on above: GFR Calc Estimated GFR (MDRD) Non-Af Amer 59 mL/min >60 [facility] Comment on above: Non- GFR Calc 28.3 pg 27.0-32.0 [facility] 12.3 % 11.6-14.6 [facility] 37.5 fl 35.1-43.9 [facility] 0.600 % 0.0-0.9 [facility] 0.2 % 0-5 [facility] 59 mL/min >60 [facility] 71 mL/min >60 [facility] 62.33 ml/min [facility] 8.6 RATIO 10-20 [facility] 27.0 mmol/L 21.0-32.0 [facility] Platelets bldOrdered By: Dr. Black on 08-14-2022 Platelets (Bld) [#/Vol] 220 10*3/uL 150-450 [facility] Serum or plasma calcium xiomara urement (mass/volume)Ordered By: Dr. Black on 08-14-2022 Calcium [Mass/Vol] 8.9 mg/dL 8.5-10.1 [facility] Serum or plasma creatinine m easurement (mass/volume)Ordered By: Dr. Black on 08-14-2022 Creatinine [Mass/Vol] 1.05 mg/dL 0.55-1.02 [facility] Comment on above: The validity of the calculated GFR & GFRAA in patients over 70 years has not been determined. Clinical correlation is essential. Serum or plasma urea nitroge n measurement (mass/volume)Ordered By: Dr. Black on 08-14-2022 Urea nitrogen [Mass/Vol] 9 mg/dL 7-18 [facility] Thin prep Papanicolaou smear with manual screeningOrdered By: Dr. Black on 08-14-2022 Thin prep Papanicolaou smear with manual screening 6 5-15 [facility] Beta hCG serum qualOrdered B y: Dr. Ng on 08-10-2022 Beta HCG ( test) Ql Negative [facility] Absolute lymphocyte countOrd ered By: Darlyn Galeano on 08-06-2022 Lymphocytes Auto (Unsp spec) [#/Vol] 1.46 10*3/uL 0.83-4.51 [facility] Basophil percentageOrdered B y: Darlyn Galeano on 08-06-2022 Basophil percentage 290 mg/dL 74-106 [facility] Basophil percentage 136 mmol/L 136-145 [facility] Basophil percentage 3.5 mmol/L 3.5-5.1 [facility] Basophil percentage 101 mmol/L 98-107 [facility] Basophils (Bld) [#/Vol] 8.7 10*3/uL 4.4-11.0 [facility] Basophils (Bld) [#/Vol] 6.5 10*3/uL 2.0-7.7 [facility] Basophils/100 WBC (Bld) 0.8 % 0-1 [facility] Basophils/100 WBC (Bld) 74.5 % 47-70 [facility] Basophils/100 WBC (Bld) 0.7 % 0-5 [place] Chloride [Moles/Vol] 101 mmol/L 98-107 [facility] Eosin[facility] WBC (Bld) 0.7 % 0-5 [facility] Glucose [Mass/Vol] 290 mg/dL 74-106 [facility] Comment on above: Glucose result great er than or equal to 200 mg/dLsuggests DIABETES MELLITUS per A.D.A. criteria. Neutrophils (Bld) [#/Vol] 6.5 10*3/uL 2.0-7.7 [facility] Neutrophils/100 WBC (Bld) 74.5 % 47-70 [facility] Potassium [Moles/Vol] 3.5 mmol/L 3.5-5.1 [facility] Sodium [Moles/Vol] 136 mmol/L 136-145 [facility] WBC (Bld) [#/Vol] 8.7 10*3/uL 4.4-11.0 [facility] Blood erythrocytes count (nu mber/volume)Ordered By: Darlyn Galeano on 08-06-2022 RBC (Bld) [#/Vol] 5.62 10*6/uL 4.2-5.4 [facility] Blood hemoglobin measurement (mass/volume)Ordered By: Darlyn Galeano on 08-06-2022 Hemoglobin (Bld) [Mass/Vol] 15.7 g/dL 12.0-15.0 [facility] Blood lymphocytes/100 leukoc ytesOrdered By: Darlyn Galeano on 08-06-2022 Lymphocytes/100 WBC (Bld) 16.8 % 19-41 [facility] Blood monocytes/100 leukocyt esOrdered By: Darlyn Galeano on 08-06-2022 Monocytes/100 WBC (Bld) 6.9 % 0-10 [facility] Blood platelet mean volumeOr dered By: Darlyn Galeano on 08-06-2022 Platelet mean volume (Bld) [Entitic vol] 9.4 fL 6.2-12.0 [facility] Determination of erythrocyte mean corpuscular volume (MCV)Ordered By: Darlyn Galeano on 08-06-2022 MCV (RBC) [Entitic vol] 85.6 fL 81-99 [facility] Hematocrit Auto (Bld) [Volum e fraction]Ordered By: Darlyn Galeano on 08-06-2022 Hematocrit (Bld) [Volume fraction] 48.1 % 37-47 [facility] Laboratory - Chemistry and C hemistry - challengeOrdered By: Darlyn Galeano on 08-06-2022 CO2 [Moles/Vol] 29.0 mmol/L 21.0-32.0 [facility] Urea nitrogen/Creatinine [Mass ratio] 10.4 mg/mg 10-20 [facility] Laboratory - Hematology and Cell countsOrdered By: Darlyn Galeano on 08-06-2022 Erythrocyte distribution width (RBC) [Entitic vol] 38.5 fL 35.1-43.9 [facility] Erythrocyte distribution width (RBC) [Ratio] 12.2 % 11.6-14.6 [facility] Immature granulocytes/100 WBC (Bld) 0.300 % 0.0-0.9 [facility] Comment on above: IG% - Immature Granu locytes (promyelocytes, myelocytes and metamyelocytes) > 1% indicates that a LEFT SHIFT is Present. MCH (RBC) [Entitic mass] 27.9 pg 27.0-32.0 [facility] Nucleated RBC/100 WBC (Bld) [Ratio] 0 % 0-5 [facility] MCHC Auto (RBC) [Mass/Vol]Or dered By: Darlyn Galeano on 08-06-2022 MCHC (RBC) [Mass/Vol] 32.6 g/dL 32-36 [facility] No Panel InformationOrdered By: Darlyn Galeano on 08-06-2022 Estimated Creatinine Clearance Calc 85.00 ml/min [facility] Estimated GFR (MDRD) Amer 101 mL/min >60 [facility] Comment on above: GFR Calc Estimated GFR (MDRD) Non-Af Amer 84 mL/min >60 [facility] Comment on above: Non- GFR Calc 27.9 pg 27.0-32.0 [facility] 12.2 % 11.6-14.6 [facility] 38.5 fl 35.1-43.9 [facility] 0.300 % 0.0-0.9 [facility] 0 % 0-5 [facility] 84 mL/min >60 [facility] 101 mL/min >60 [facility] 85.00 ml/min [facility] 10.4 RATIO 10-20 [facility] 29.0 mmol/L 21.0-32.0 [facility] Platelets bldOrdered By: Renee Galeano on 08-06-2022 Platelets (Bld) [#/Vol] 269 10*3/uL 150-450 [facility] Serum or plasma calcium xiomara urement (mass/volume)Ordered By: Darlyn Galeano on 08-06-2022 Calcium [Mass/Vol] 9.0 mg/dL 8.5-10.1 [facility] Serum or plasma creatinine m easurement (mass/volume)Ordered By: Darlyn Galeano on 08-06-2022 Creatinine [Mass/Vol] 0.77 mg/dL 0.55-1.02 [facility] Comment on above: The validity of the calculated GFR & GFRAA in patients over 70 years has not been determined. Clinical correlation is essential. Serum or plasma urea nitroge n measurement (mass/volume)Ordered By: Darlyn Galeano on 08-06-2022 Urea nitrogen [Mass/Vol] 8 mg/dL 7-18 [facility] Thin prep Papanicolaou smear with manual screeningOrdered By: Darlyn Galeano on 08-06-2022 Thin prep Papanicolaou smear with manual screening 6 5-15 [facility] Absolute lymphocyte countOrd ered By: Vidal Solorio on 08-03-2022 Lymphocytes Auto (Unsp spec) [#/Vol] 0.99 10*3/uL 0.83-4.51 [facility] Basophil percentageOrdered B y: Vidal Solorio on 08-03-2022 Basophil percentage 0-5 SEEN /hpf 0-5 [facility] Basophil percentage 270 mg/dL 74-106 [facility] Basophil percentage 7.6 g/dL 6.4-8.2 [facility] Basophil percentage 1.10 mg/dL 0.20-1.00 [facility] Basophil percentage 135 mmol/L 136-145 [facility] Basophil percentage 4.5 mmol/L 3.5-5.1 [facility] Basophil percentage 99 mmol/L 98-107 [facility] Basophils (Bld) [#/Vol] 12.4 10*3/uL 4.4-11.0 [facility] Basophils (Bld) [#/Vol] 10.8 10*3/uL 2.0-7.7 [facility] Basophils/100 WBC (Bld) 0.6 % 0-1 [facility] Basophils/100 WBC (Bld) 87.4 % 47-70 [facility] Basophils/100 WBC (Bld) 0.4 % 0-5 [facility] Bilirubin [Mass/Vol] 1.10 mg/dL 0.20-1.00 [facility] Comment on above: For patients on eltr ombopag therapy, use of Dimension [place] TBIL is not recommended. Chloride [Moles/Vol] 99 mmol/L 98-107 [facility] Eosinophils/100 WBC (Bld) 0.4 % 0-5 [facility] Glucose [Mass/Vol] 270 mg/dL 74-106 [facility] Comment on above: Glucose result great er than or equal to 200 mg/dLsuggests DIABETES MELLITUS per A.D.A. criteria. Neutrophils (Bld) [#/Vol] 10.8 10*3/uL 2.0-7.7 [facility] Neutrophils/100 WBC (Bld) 87.4 % 47-70 [facility] Potassium [Moles/Vol] 4.5 mmol/L 3.5-5.1 [facility] Protein [Mass/Vol] 7.6 g/dL 6.4-8.2 [facility] Sodium [Moles/Vol] 135 mmol/L 136-145 [facility] WBC (Bld) [#/Vol] 12.4 10*3/uL 4.4-11.0 [facility] Bilirubin Test strip Ql (U)O rdered By: Vidal Solorio on 08-03-2022 Bilirubin Ql (U) Negative Negative [facility] Blood erythrocytes count (nu mber/volume)Ordered By: Vidal Solorio on 08-03-2022 RBC (Bld) [#/Vol] 5.73 10*6/uL 4.2-5.4 [facility] Blood hemoglobin measurement (mass/volume)Ordered By: Vidal Solorio on 08-03-2022 Hemoglobin (Bld) [Mass/Vol] 16.2 g/dL 12.0-15.0 [facility] Blood lymphocytes/100 leukoc ytesOrdered By: Vidal Solorio on 08-03-2022 Lymphocytes/100 WBC (Bld) 8.0 % 19-41 [facility] Blood monocytes/100 leukocyt esOrdered By: Vidal Solorio on 08-03-2022 Monocytes/100 WBC (Bld) 3.2 % 0-10 [facility] Blood platelet mean volumeOr dered By: Vidal Solorio on 08-03-2022 Platelet mean volume (Bld) [Entitic vol] 9.9 fL 6.2-12.0 [facility] Determination of erythrocyte mean corpuscular volume (MCV)Ordered By: Vidal Solorio on 08-03-2022 MCV (RBC) [Entitic vol] 84.5 fL 81-99 [facility] Hematocrit Auto (Bld) [Volum e fraction]Ordered By: Vidal Solorio on 08-03-2022 Hematocrit (Bld) [Volume fraction] 48.4 % 37-47 [facility] Ketones Test strip Ql (U)Ord ered By: Vidal Solorio on 08-03-2022 Ketones Ql (U) 15 mg/dl Negative [facility] Laboratory - Chemistry and C hemistry - challengeOrdered By: Vidal Solorio on 08-03-2022 ALP [Catalytic activity/Vol] 120 U/L 45-117 [facility] ALT [Catalytic activity/Vol] 15 U/L 13-56 [facility] CO2 [Moles/Vol] 27.0 mmol/L 21.0-32.0 [facility] Globulin (S) [Mass/Vol] 4.5 g/dL 2.2-4.2 [facility] Lipase [Catalytic activity/Vol] 68 U/L 73-393 [facility] Urea nitrogen/Creatinine [Mass ratio] 15.6 mg/mg 10-20 [facility] Laboratory - Hematology and Cell countsOrdered By: Vidal Solorio on 08-03-2022 Erythrocyte distribution width (RBC) [Entitic vol] 37.5 fL 35.1-43.9 [facility] Erythrocyte distribution width (RBC) [Ratio] 12.3 % 11.6-14.6 [facility] Immature granulocytes/100 WBC (Bld) 0.400 % 0.0-0.9 [facility] Comment on above: IG% - Immature Granu locytes (promyelocytes, myelocytes and metamyelocytes) > 1% indicates that a LEFT SHIFT is Present. MCH (RBC) [Entitic mass] 28.3 pg 27.0-32.0 [facility] Nucleated RBC/100 WBC (Bld) [Ratio] 0 % 0-5 [facility] MCHC Auto (RBC) [Mass/Vol]Or dered By: Vidal Solorio on 08-03-2022 MCHC (RBC) [Mass/Vol] 33.5 g/dL 32-36 [facility] Mucus LM Ql (Urine sed)Order ed By: Vidal Solorio on 08-03-2022 Mucus Ql (Urine sed) 0 SEEN /hpf [facility] Nitrite Test strip Ql (U)Ord ered By: Vidal Solorio on 08-03-2022 Nitrite Ql (U) Negative Negative [facility] No Panel InformationOrdered By: Vidal Solorio on 08-03-2022 Troponin I High Sensitivity 12 pg/mL 3.0-54.0 [facility] Comment on above: Please Note: New Junie t Units and Gender Specific Reference Ranges. For more information see Policy Stat Procedure [place] High Sensitivity Troponin (TNIH) and attachments. 12 pg/mL 3.0-54.0 [facility] Estimated Creatinine Clearance Calc 102.27 ml/min [facility] Estimated GFR (MDRD) Amer 126 mL/min >60 [facility] Comment on above: GFR Calc Estimated GFR (MDRD) Non-Af Amer 104 mL/min >60 [facility] Comment on above: Non- GFR Calc 28.3 pg 27.0-32.0 [facility] 12.3 % 11.6-14.6 [facility] 37.5 fl 35.1-43.9 [facility] 0.400 % 0.0-0.9 [facility] 0 % 0-5 [facility] 104 mL/min >60 [facility] 126 mL/min >60 [facility] 102.27 ml/min [facility] 15.6 RATIO 10-20 [facility] 4.5 g/dL 2.2-4.2 [facility] 68 U/L 73-393 [facility] 120 U/L 45-117 [facility] 15 U/L 13-56 [facility] 27.0 mmol/L 21.0-32.0 [facility] Platelets bldOrdered By: Roxi Solorio on 08-03-2022 Platelets (Bld) [#/Vol] 233 10*3/uL 150-450 [facility] Protein Test strip Ql (U)Ord ered By: Vidal Solorio on 08-03-2022 Protein Ql (U) 100 mg/dl Negative [facility] Serum or plasma albumin xiomara urement (mass/volume)Ordered By: Vidal Solorio on 08-03-2022 Albumin [Mass/Vol] 3.1 g/dL 3.2-5.0 [facility] Serum or plasma albumin/glob ulin mass ratioOrdered By: Vidal Solorio on 08-03-2022 Albumin/Globulin [Mass ratio] 0.7 {ratio} 0.9-2.4 [facility] Serum or plasma calcium xiomara urement (mass/volume)Ordered By: Vidal Solorio on 08-03-2022 Calcium [Mass/Vol] 9.4 mg/dL 8.5-10.1 [facility] Serum or plasma creatinine m easurement (mass/volume)Ordered By: Vidal Solorio on 08-03-2022 Creatinine [Mass/Vol] 0.64 mg/dL 0.55-1.02 [facility] Comment on above: The validity of the calculated GFR & GFRAA in patients over 70 years has not been determined. Clinical correlation is essential. Serum or plasma urea nitroge n measurement (mass/volume)Ordered By: Vidal Solorio on 08-03-2022 Urea nitrogen [Mass/Vol] 10 mg/dL 7-18 [facility] Squamous epithelial cells de tection in urine sediment by light microscopyOrdered By: Vidal Solorio on 08-03-2022 Epithelial cells.squamous LM Ql (Urine sed) 0-5 SEEN /hpf 5-10 [facility] Thin prep Papanicolaou smear with manual screeningOrdered By: Vidal Solorio on 08-03-2022 Thin prep Papanicolaou smear with manual screening 15 U/L 15-37 [facility] Thin prep Papanicolaou smear with manual screening 9 5-15 [facility] Urine blood detectionOrdered By: Vidal Solorio on 08-03-2022 RBC Ql (U) 50 /ul Negative [facility] RBC Ql (U) 0-5 SEEN /hpf 0-5 [facility] Urine clarityOrdered By: Roxi Solorio on 08-03-2022 Clarity (U) Clear Clear [facility] Urine color determinationOrd ered By: Vidal Solorio on 08-03-2022 Color (U) Yellow Yellow [facility] Urine glucose detectionOrder ed By: Vidal Solorio on 08-03-2022 Glucose Ql (U) 1000 mg/dl Normal [facility] Urine leukocyte esterase det ection by dipstickOrdered By: Vidal Solorio on 08-03-2022 Leukocyte esterase Test strip Ql (U) 100 /ul Negative [facility] Urine pHOrdered By: Vidal wray on 08-03-2022 pH (U) 7.0 [pH] 5.0 - 8.0 [facility] Urine sediment bacteria coun t by microscopy (number/high power field)Ordered By: Vidal Solorio on 08-03-2022 Bacteria LM.HPF (Urine sed) [#/Area] 0 /[HPF] None Seen [facility] Urine specific gravity measu rementOrdered By: Vidal Solorio on 08-03-2022 Specific gravity (U) [Rel density] 1.010 1.002-1.03 0 [facility] Urobilinogen Auto test strip Ql (U)Ordered By: Vidal Solorio on 08-03-2022 Urobilinogen Ql (U) Normal mg/dl Normal [facility] Absolute lymphocyte countOrd ered By: Dr. Mcneal on 07-25-2022 Lymphocytes Auto (Unsp spec) [#/Vol] 1.18 10*3/uL 0.83-4.51 [facility] Basophil percentageOrdered B y: Dr. Mcneal on 07-25-2022 Basophil percentage 415 mg/dL 74-106 [facility] Basophil percentage 6.6 g/dL 6.4-8.2 [facility] Basophil percentage 0.40 mg/dL 0.20-1.00 [facility] Basophil percentage 135 mmol/L 136-145 [facility] Basophil percentage 4.1 mmol/L 3.5-5.1 [facility] Basophil percentage 101 mmol/L 98-107 [facility] Bilirubin [Mass/Vol] 0.40 mg/dL 0.20-1.00 [facility] Comment on above: For patients on eltr ombopag therapy, use of Dimension [place] TBIL is not recommended. Chloride [Moles/Vol] 101 mmol/L 98-[address] [facility] Glucose [Mass/Vol] 415 mg/dL 74-106 [facility] Comment on above: Glucose result great er than or equal to 200 mg/dLsuggests DIABETES MELLITUS per A.D.A. criteria. Potassium [Moles/Vol] 4.1 mmol/L 3.5-5.1 [facility] Comment on above: Slight Hemolysis, Re sult may be falsely increased. Protein [Mass/Vol] 6.6 g/dL 6.4-8.2 [facility] Sodium [Moles/Vol] 135 mmol/L 136-145 [facility] Basophils (Bld) [#/Vol] 8.6 10*3/uL 4.4-11.0 [facility] Basophils (Bld) [#/Vol] 6.8 10*3/uL 2.0-7.7 [facility] Basophils/100 WBC (Bld) 0.7 % 0-1 [facility] Basophils/100 WBC (Bld) 78.2 % 47-70 [place] Basophils/100 WBC (Bld) 1.6 % 0-5 [facility] Eosinophils/100 WBC (Bld) 1.6 % 0-5 [facility] Neutrophils (Bld) [#/Vol] 6.8 10*3/uL 2.0-7.7 [facility] Neutrophils/100 WBC (Bld) 78.2 % 47-70 [facility] WBC (Bld) [#/Vol] 8.6 10*3/uL 4.4-11.0 [facility] Blood erythrocytes count (nu mber/volume)Ordered By: Dr. Mcneal on 07-25-2022 RBC (Bld) [#/Vol] 5.96 10*6/uL 4.2-5.4 [facility] Blood hemoglobin measurement (mass/volume)Ordered By: Dr. Mcneal on 07-25-2022 Hemoglobin (Bld) [Mass/Vol] 16.9 g/dL 12.0-15.0 [facility] Blood lymphocytes/100 leukoc ytesOrdered By: Dr. Mcneal on 07-25-2022 Lymphocytes/100 WBC (Bld) 13.7 % 19-41 [facility] Blood monocytes/100 leukocyt esOrdered By: Dr. Mcneal on 07-25-2022 Monocytes/100 WBC (Bld) 5.2 % 0-10 [facility] Blood platelet mean volumeOr dered By: Dr. Mcneal on 07-25-2022 Platelet mean volume (Bld) [Entitic vol] 10.2 fL 6.2-12.0 [facility] Determination of erythrocyte mean corpuscular volume (MCV)Ordered By: Dr. Mcneal on 07-25-2022 MCV (RBC) [Entitic vol] 84.6 fL 81-99 [facility] Hematocrit Auto (Bld) [Volum e fraction]Ordered By: Dr. Mcneal on 07-25-2022 Hematocrit (Bld) [Volume fraction] 50.4 % 37-47 [facility] Laboratory - Chemistry and C hemistry - challengeOrdered By: Dr. Mcneal on 07-25-2022 ALP [Catalytic activity/Vol] 113 U/L 45-117 [facility] ALT [Catalytic activity/Vol] 15 U/L 13-56 [facility] CO2 [Moles/Vol] 27.0 mmol/L 21.0-32.0 [facility] Globulin (S) [Mass/Vol] 4.0 g/dL 2.2-4.2 [facility] Lipase [Catalytic activity/Vol] 104 U/L 73-393 [facility] Urea nitrogen/Creatinine [Mass ratio] 14.9 mg/mg 10-20 [facility] Laboratory - Hematology and Cell countsOrdered By: Dr. Mcneal on 07-25-2022 Erythrocyte distribution width (RBC) [Entitic vol] 38.3 fL 35.1-43.9 [facility] Erythrocyte distribution width (RBC) [Ratio] 12.4 % 11.6-14.6 [facility] Immature granulocytes/100 WBC (Bld) 0.600 % 0.0-0.9 [facility] Comment on above: IG% - Immature Granu locytes (promyelocytes, myelocytes and metamyelocytes) > 1% indicates that a LEFT SHIFT is Present. MCH (RBC) [Entitic mass] 28.4 pg 27.0-32.0 [facility] Nucleated RBC/100 WBC (Bld) [Ratio] 0 % 0-5 [facility] MCHC Auto (RBC) [Mass/Vol]Or dered By: Dr. Mcneal on 07-25-2022 MCHC (RBC) [Mass/Vol] 33.5 g/dL 32-36 [facility] No Panel InformationOrdered By: Dr. Mcneal on 07-25-2022 Estimated Creatinine Clearance Calc 81.81 ml/min [facility] Estimated GFR (MDRD) Amer 97 mL/min >60 [facility] Comment on above: GFR Calc Estimated GFR (MDRD) Non-Af Amer 80 mL/min >60 [facility] Comment on above: Non- GFR Calc Troponin I High Sensitivity 10 pg/mL 3.0-54.0 [facility] Comment on above: Please Note: New Junie t Units and Gender Specific Reference Ranges. For more information see Policy Stat Procedure [place] High Sensitivity Troponin (TNIH) and attachments. 80 mL/min >60 [facility] 97 mL/min >60 [facility] 81.81 ml/min [facility] 14.9 RATIO 10-20 [facility] 4.0 g/dL 2.2-4.2 [facility] 104 U/L 73-393 [facility] 10 pg/mL 3.0-54.0 [facility] 113 U/L 45-117 [facility] 15 U/L 13-56 [facility] 27.0 mmol/L 21.0-32.0 [facility] 28.4 pg 27.0-32.0 [facility] 12.4 % 11.6-14.6 [facility] 38.3 fl 35.1-43.9 [facility] 0.600 % 0.0-0.9 [facility] 0 % 0-5 [facility] Platelets bldOrdered By: Dr. Mcneal on 07-25-2022 Platelets (Bld) [#/Vol] 163 10*3/uL 150-450 [facility] Serum or plasma albumin xiomara urement (mass/volume)Ordered By: Dr. Mcneal on 07-25-2022 Albumin [Mass/Vol] 2.6 g/dL 3.2-5.0 [facility] Serum or plasma albumin/glob ulin mass ratioOrdered By: Dr. Mcneal on 07-25-2022 Albumin/Globulin [Mass ratio] 0.6 {ratio} 0.9-2.4 [facility] Serum or plasma calcium xiomara urement (mass/volume)Ordered By: Dr. Mcneal on 07-25-2022 Calcium [Mass/Vol] 8.6 mg/dL 8.5-10.1 [facility] Serum or plasma creatinine m easurement (mass/volume)Ordered By: Dr. Mcneal on 07-25-2022 Creatinine [Mass/Vol] 0.80 mg/dL 0.55-1.02 [facility] Comment on above: The validity of the calculated GFR & GFRAA in patients over 70 years has not been determined. Clinical correlation is essential. Serum or plasma urea nitroge n measurement (mass/volume)Ordered By: Dr. Mcneal on 07-25-2022 Urea nitrogen [Mass/Vol] 12 mg/dL 7-18 [facility] Thin prep Papanicolaou smear with manual screeningOrdered By: Dr. Mcneal on 07-25-2022 Thin prep Papanicolaou smear with manual screening 17 U/L 15-37 [facility] Comment on above: Slight Hemolysis, Re sult may be falsely increased. Thin prep Papanicolaou smear with manual screening 7 5-15 [facility] Absolute lymphocyte countOrd ered By: ED PROVIDER on 05-19-2022 Lymphocytes Auto (Unsp spec) [#/Vol] 1.58 10*3/uL 0.83-4.51 [facility] Basophil percentageOrdered B y: ED PROVIDER on 05-19-2022 Basophil percentage 402 mg/dL 74-106 [facility] Basophil percentage 131 mmol/L 136-145 [facility] Basophil percentage 4.5 mmol/L 3.5-5.1 [facility] Basophil percentage 97 mmol/L 98-107 [facility] Basophils (Bld) [#/Vol] 11.3 10*3/uL 4.4-11.0 [facility] Basophils (Bld) [#/Vol] 9.1 10*3/uL 2.0-7.7 [facility] Basophils/100 WBC (Bld) 0.7 % 0-1 [facility] Basophils/100 WBC (Bld) 79.9 % 47-70 [facility] Basophils/100 WBC (Bld) 1.0 % 0-5 [facility] Chloride [Moles/Vol] 97 mmol/L 98-107 [facility] Eosinophils/100 WBC (Bld) 1.0 % 0-5 [facility] Glucose [Mass/Vol] 402 mg/dL 74-106 [facility] Comment on above: Glucose result great er than or equal to 200 mg/dLsuggests DIABETES MELLITUS per A.D.A. criteria. Neutrophils (Bld) [#/Vol] 9.1 10*3/uL 2.0-7.7 [facility] Neutrophils/100 WBC (Bld) 79.9 % 47-70 [facility] Potassium [Moles/Vol] 4.5 mmol/L 3.5-5.1 [facility] Comment on above: Moderate Hemolysis, Result may be falsely increased. Sodium [Moles/Vol] 131 mmol/L 136-145 [facility] WBC (Bld) [#/Vol] 11.3 10*3/uL 4.4-11.0 [facility] Beta hCG serum qualOrdered B y: ED PROVIDER on 05-19-2022 Beta HCG ( test) Ql Negative [facility] Blood erythrocytes count (nu mber/volume)Ordered By: ED PROVIDER on 05-19-2022 RBC (Bld) [#/Vol] 5.80 10*6/uL 4.2-5.4 [facility] Blood hemoglobin measurement (mass/volume)Ordered By: ED PROVIDER on 05-19-2022 Hemoglobin (Bld) [Mass/Vol] 16.2 g/dL 12.0-15.0 [facility] Blood lymphocytes/100 leukoc ytesOrdered By: ED PROVIDER on 05-19-2022 Lymphocytes/100 WBC (Bld) 13.9 % 19-41 [facility] Blood monocytes/100 leukocyt esOrdered By: ED PROVIDER on 05-19-2022 Monocytes/100 WBC (Bld) 4.0 % 0-10 [facility] Blood platelet mean volumeOr dered By: ED PROVIDER on 05-19-2022 Platelet mean volume (Bld) [Entitic vol] 9.7 fL 6.2-12.0 [facility] Determination of erythrocyte mean corpuscular volume (MCV)Ordered By: ED PROVIDER on 05-19-2022 MCV (RBC) [Entitic vol] 84.3 fL 81-99 [facility] Hematocrit Auto (Bld) [Volum e fraction]Ordered By: ED PROVIDER on 05-19-2022 Hematocrit (Bld) [Volume fraction] 48.9 % 37-47 [facility] Laboratory - Chemistry and C hemistry - challengeOrdered By: ED PROVIDER on 05-19-2022 CO2 [Moles/Vol] 28.0 mmol/L 21.0-32.0 [facility] Urea nitrogen/Creatinine [Mass ratio] 10.2 mg/mg 10-20 [facility] Laboratory - Hematology and Cell countsOrdered By: ED PROVIDER on 05-19-2022 Erythrocyte distribution width (RBC) [Entitic vol] 41.3 fL 35.1-43.9 [facility] Erythrocyte distribution width (RBC) [Ratio] 13.5 % 11.6-14.6 [facility] Immature granulocytes/100 WBC (Bld) 0.500 % 0.0-0.9 [facility] Comment on above: IG% - Immature Granu locytes (promyelocytes, myelocytes and metamyelocytes) > 1% indicates that a LEFT SHIFT is Present. MCH (RBC) [Entitic mass] 27.9 pg 27.0-32.0 [facility] Nucleated RBC/100 WBC (Bld) [Ratio] 0 % 0-5 [facility] MCHC Auto (RBC) [Mass/Vol]Or dered By: ED PROVIDER on 05-19-2022 MCHC (RBC) [Mass/Vol] 33.1 g/dL 32-36 [facility] No Panel InformationOrdered By: ED PROVIDER on 05-19-2022 Estimated Creatinine Clearance Calc 83.91 ml/min [facility] Estimated GFR (MDRD) Amer 100 mL/min >60 [facility] Comment on above: GFR Calc Estimated GFR (MDRD) Non-Af Amer 82 mL/min >60 [facility] Comment on above: Non- GFR Calc 27.9 pg 27.0-32.0 [facility] 13.5 % 11.6-14.6 [facility] 41.3 fl 35.1-43.9 [facility] 0.500 % 0.0-0.9 [facility] 0 % 0-5 [facility] 82 mL/min >60 [facility] 100 mL/min >60 [facility] 83.91 ml/min [facility] 10.2 RATIO 10-20 [facility] 28.0 mmol/L 21.0-32.0 [facility] Platelets bldOrdered By: ED PROVIDER on 05-19-2022 Platelets (Bld) [#/Vol] 260 10*3/uL 150-450 [facility] Serum or plasma calcium xiomara urement (mass/volume)Ordered By: ED PROVIDER on 05-19-2022 Calcium [Mass/Vol] 9.2 mg/dL 8.5-10.1 [facility] Serum or plasma creatinine m easurement (mass/volume)Ordered By: ED PROVIDER on 05-19-2022 Creatinine [Mass/Vol] 0.78 mg/dL 0.55-1.02 [facility] Comment on above: The validity of the calculated GFR & GFRAA in patients over 70 years has not been determined. Clinical correlation is essential. Serum or plasma urea nitroge n measurement (mass/volume)Ordered By: ED PROVIDER on 05-19-2022 Urea nitrogen [Mass/Vol] 8 mg/dL 7-18 [facility] Thin prep Papanicolaou smear with manual screeningOrdered By: ED PROVIDER on 05-19-2022 Thin prep Papanicolaou smear with manual screening 6 5-15 [facility] Absolute lymphocyte countOrd ered By: Conor Martin on 05-09-2022 Lymphocytes Auto (Unsp spec) [#/Vol] 0.43 10*3/uL 0.83-4.51 [facility] Basophil percentageOrdered B y: Conor Martin on 05-09-2022 Basophils/100 WBC (Bld) 0.4 % 0-1 [facility] Bilirubin [Mass/Vol] 1.40 mg/dL 0.20-1.00 [facility] Comment on above: For patients on eltr ombopag therapy, use of Dimension [place] TBIL is not recommended. Chloride [Moles/Vol] 100 mmol/L 98-107 [facility] Eosinophils/100 WBC (Bld) 0.8 % 0-5 [facility] Glucose [Mass/Vol] 364 mg/dL 74-106 [facility] Comment on above: Glucose result great er than or equal to 200 mg/dLsuggests DIABETES MELLITUS per A.D.A. criteria. Neutrophils (Bld) [#/Vol] 9.6 10*3/uL 2.0-7.7 [facility] Neutrophils/100 WBC (Bld) 89.6 % 47-70 [facility] Potassium [Moles/Vol] 4.6 mmol/L 3.5-5.1 [facility] Comment on above: Moderate Hemolysis, Result may be falsely increased. Protein [Mass/Vol] 7.7 g/dL 6.4-8.2 [facility] Sodium [Moles/Vol] 133 mmol/L 136-145 [facility] WBC (Bld) [#/Vol] 10.7 10*3/uL 4.4-11.0 [facility] Blood erythrocytes count (nu mber/volume)Ordered By: Conor Martin on 05-09-2022 RBC (Bld) [#/Vol] 5.49 10*6/uL 4.2-5.4 [facility] Blood hemoglobin measurement (mass/volume)Ordered By: Conor Martin on 05-09-2022 Hemoglobin (Bld) [Mass/Vol] 15.5 g/dL 12.0-15.0 [facility] Blood lymphocytes/100 leukoc ytesOrdered By: Conor Martin on 05-09-2022 Lymphocytes/100 WBC (Bld) 4.0 % 19-41 [facility] Blood manual differential co mment interpretation (narrative result)Ordered By: Conor Martin on 05-09-2022 Manual differential comment Main (Bld) [Interp] SCANNED [facility] Comment on above: LYMPHOPENIA NOTED Blood monocytes/100 leukocyt esOrdered By: Conor Martin on 05-09-2022 Monocytes/100 WBC (Bld) 4.8 % 0-10 [facility] Blood platelet mean volumeOr dered By: Conor Martin on 05-09-2022 Platelet mean volume (Bld) [Entitic vol] 9.6 fL 6.2-12.0 [facility] Determination of erythrocyte mean corpuscular volume (MCV)Ordered By: Conor Martin on 05-09-2022 MCV (RBC) [Entitic vol] 84.9 fL 81-99 [facility] Direct bilirubinOrdered By: Conor Martin on 05-09-2022 Bilirubin.direct [Mass/Vol] 0.18 mg/dL 0.00-0.30 [facility] Hematocrit Auto (Bld) [Volum e fraction]Ordered By: Conor Martin on 05-09-2022 Hematocrit (Bld) [Volume fraction] 46.6 % 37-47 [facility] Influenza virus A and B and SARS-CoV-2 (COVID-19) Ag panel - Upper respiratory specimOrdered By: Conor Martin on 05-09-2022 SARS-CoV-2 & FLU Antigen (Rapid) Influenzae A [facility] Laboratory - Chemistry and C hemistry - challengeOrdered By: Conor Martin on 05-09-2022 ALP [Catalytic activity/Vol] 142 U/L 45-117 [facility] ALT [Catalytic activity/Vol] 17 U/L 13-56 [facility] CO2 [Moles/Vol] 29.0 mmol/L 21.0-32.0 [facility] Globulin (S) [Mass/Vol] 4.5 g/dL 2.2-4.2 [facility] Lipase [Catalytic activity/Vol] 89 U/L 73-393 [facility] Urea nitrogen/Creatinine [Mass ratio] 15.2 mg/mg 10-20 [facility] Laboratory - Hematology and Cell countsOrdered By: Conor Martin on 05-09-2022 Erythrocyte distribution width (RBC) [Entitic vol] 41.5 fL 35.1-43.9 [facility] Erythrocyte distribution width (RBC) [Ratio] 13.5 % 11.6-14.6 [facility] Immature granulocytes/100 WBC (Bld) 0.400 % 0.0-0.9 [facility] Comment on above: IG% - Immature Granu locytes (promyelocytes, myelocytes and metamyelocytes) > 1% indicates that a LEFT SHIFT is Present. MCH (RBC) [Entitic mass] 28.2 pg 27.0-32.0 [facility] Nucleated RBC/100 WBC (Bld) [Ratio] 0 % 0-5 [facility] MCHC Auto (RBC) [Mass/Vol]Or dered By: Conor Martin on 05-09-2022 MCHC (RBC) [Mass/Vol] 33.3 g/dL 32-36 [facility] No Panel InformationOrdered By: Conor Martin on 05-09-2022 Estimated Creatinine Clearance Calc 90.90 ml/min [facility] Estimated GFR (MDRD) Amer 110 mL/min >60 [facility] Comment on above: GFR Calc Estimated GFR (MDRD) Non-Af Amer 91 mL/min >60 [facility] Comment on above: Non- GFR Calc Platelets bldOrdered By: Jose Martin on 05-09-2022 Platelets (Bld) [#/Vol] 289 10*3/uL 150-450 [facility] Serum or plasma acetone xiomara urement (mass/volume)Ordered By: Conor Martin on 05-09-2022 Acetone [Mass/Vol] Negative NEG [facility] Serum or plasma albumin xiomara urement (mass/volume)Ordered By: Conor Martin on 05-09-2022 Albumin [Mass/Vol] 3.2 g/dL 3.2-5.0 [facility] Serum or plasma calcium xiomara urement (mass/volume)Ordered By: Conor Martin on 05-09-2022 Calcium [Mass/Vol] 9.4 mg/dL 8.5-10.1 [facility] Serum or plasma creatinine m easurement (mass/volume)Ordered By: Conor Martin on 05-09-2022 Creatinine [Mass/Vol] 0.72 mg/dL 0.55-1.02 [facility] Comment on above: The validity of the calculated GFR & GFRAA in patients over 70 years has not been determined. Clinical correlation is essential. Serum or plasma urea nitroge n measurement (mass/volume)Ordered By: Conor Martin on 05-09-2022 Urea nitrogen [Mass/Vol] 11 mg/dL 7-18 [facility] Thin prep Papanicolaou smear with manual screeningOrdered By: Conor Martin on 05-09-2022 Thin prep Papanicolaou smear with manual screening 21 U/L 15-37 [facility] Comment on above: Moderate Hemolysis, Result may be falsely increased. Thin prep Papanicolaou smear with manual screening 4 5-15 [facility] Progress Noteon 05-02-2022 Progress Note CD UPLOADED. IMAGES IN AGFA. Normal [facility] Absolute lymphocyte countOrd ered By: Dr. Mcneal on 04-17-2022 Lymphocytes Auto (Unsp spec) [#/Vol] 1.46 10*3/uL 0.83-4.51 [facility] Basophil percentageOrdered B y: Dr. Mcneal on 04-17-2022 Basophils/100 WBC (Bld) 0.7 % 0-1 [facility] Bilirubin [Mass/Vol] 1.00 mg/dL 0.20-1.00 [facility] Comment on above: For patients on eltr ombopag therapy, use of Dimension [place] TBIL is not recommended. Chloride [Moles/Vol] 100 mmol/L 98-107 [facility] Eosinophils/100 WBC (Bld) 1.2 % 0-5 [facility] Glucose [Mass/Vol] 368 mg/dL 74-106 [facility] Comment on above: Glucose result great er than or equal to 200 mg/dLsuggests DIABETES MELLITUS per A.D.A. criteria. Neutrophils (Bld) [#/Vol] 9.0 10*3/uL 2.0-7.7 [facility] Neutrophils/100 WBC (Bld) 79.1 % 47-70 [facility] Potassium [Moles/Vol] 3.5 mmol/L 3.5-5.1 [facility] Protein [Mass/Vol] 6.6 g/dL 6.4-8.2 [facility] Sodium [Moles/Vol] 136 mmol/L 136-145 [facility] WBC (Bld) [#/Vol] 11.4 10*3/uL 4.4-11.0 [facility] Blood erythrocytes count (nu mber/volume)Ordered By: Dr. Mcneal on 04-17-2022 RBC (Bld) [#/Vol] 5.50 10*6/uL 4.2-5.4 [facility] Blood hemoglobin measurement (mass/volume)Ordered By: Dr. Mcneal on 04-17-2022 Hemoglobin (Bld) [Mass/Vol] 15.9 g/dL 12.0-15.0 [facility] Blood lymphocytes/100 leukoc ytesOrdered By: Dr. Mcneal on 04-17-2022 Lymphocytes/100 WBC (Bld) 12.8 % 19-41 [facility] Blood monocytes/100 leukocyt esOrdered By: Dr. Mcneal on 04-17-2022 Monocytes/100 WBC (Bld) 5.9 % 0-10 [facility] Blood platelet mean volumeOr dered By: Dr. Mcneal on 04-17-2022 Platelet mean volume (Bld) [Entitic vol] 9.4 fL 6.2-12.0 [facility] Determination of erythrocyte mean corpuscular volume (MCV)Ordered By: Dr. Mcneal on 04-17-2022 MCV (RBC) [Entitic vol] 83.3 fL 81-99 [facility] Hematocrit Auto (Bld) [Volum e fraction]Ordered By: Dr. Mcneal on 04-17-2022 Hematocrit (Bld) [Volume fraction] 45.8 % 37-47 [facility] Laboratory - Chemistry and C hemistry - challengeOrdered By: Dr. Mcneal on 04-17-2022 ALP [Catalytic activity/Vol] 132 U/L 45-117 [facility] ALT [Catalytic activity/Vol] 31 U/L 13-56 [facility] CO2 [Moles/Vol] 28.0 mmol/L 21.0-32.0 [facility] Globulin (S) [Mass/Vol] 3.6 g/dL 2.2-4.2 [place] Urea nitrogen/Creatinine [Mass ratio] 7.8 mg/mg 10-20 [facility] Laboratory - Hematology and Cell countsOrdered By: Dr. Mcneal on 04-17-2022 Erythrocyte distribution width (RBC) [Entitic vol] 38.7 fL 35.1-43.9 [facility] Erythrocyte distribution width (RBC) [Ratio] 12.8 % 11.6-14.6 [facility] Immature granulocytes/100 WBC (Bld) 0.300 % 0.0-0.9 [facility] Comment on above: IG% - Immature Granu locytes (promyelocytes, myelocytes and metamyelocytes) > 1% indicates that a LEFT SHIFT is Present. MCH (RBC) [Entitic mass] 28.9 pg 27.0-32.0 [facility] Nucleated RBC/100 WBC (Bld) [Ratio] 0 % 0-5 [facility] MCHC Auto (RBC) [Mass/Vol]Or dered By: Dr. Mcneal on 04-17-2022 MCHC (RBC) [Mass/Vol] 34.7 g/dL 32-36 [facility] No Panel InformationOrdered By: Dr. Mcneal on 04-17-2022 Estimated Creatinine Clearance Calc 85.00 ml/min [facility] Estimated GFR (MDRD) Amer 102 mL/min >60 [facility] Comment on above: GFR Calc Estimated GFR (MDRD) Non-Af Amer 84 mL/min >60 [facility] Comment on above: Non- GFR Calc Platelets bldOrdered By: Dr. Mcneal on 04-17-2022 Platelets (Bld) [#/Vol] 234 10*3/uL 150-450 [facility] Serum or plasma albumin xiomara urement (mass/volume)Ordered By: Dr. Mcneal on 04-17-2022 Albumin [Mass/Vol] 3.0 g/dL 3.2-5.0 [facility] Serum or plasma albumin/glob ulin mass ratioOrdered By: Dr. Mcenal on 04-17-2022 Albumin/Globulin [Mass ratio] 0.8 {ratio} 0.9-2.4 [facility] Serum or plasma calcium xiomara urement (mass/volume)Ordered By: Dr. Mcneal on 04-17-2022 Calcium [Mass/Vol] 9.0 mg/dL 8.5-10.1 [facility] Serum or plasma creatinine m easurement (mass/volume)Ordered By: Dr. Mcneal on 04-17-2022 Creatinine [Mass/Vol] 0.77 mg/dL 0.55-1.02 [facility] Comment on above: The validity of the calculated GFR & GFRAA in patients over 70 years has not been determined. Clinical correlation is essential. Serum or plasma urea nitroge n measurement (mass/volume)Ordered By: Dr. Mcneal on 04-17-2022 Urea nitrogen [Mass/Vol] 6 mg/dL 7-18 [facility] Thin prep Papanicolaou smear with manual screeningOrdered By: Dr. Mcneal on 04-17-2022 Thin prep Papanicolaou smear with manual screening 25 U/L 15-37 [facility] Thin prep Papanicolaou smear with manual screening 8 5-15 [facility] Absolute lymphocyte countOrd ered By: Dr. Abrams on 03-27-2022 Lymphocytes Auto (Unsp spec) [#/Vol] 1.61 10*3/uL 0.83-4.51 [facility] Basophil percentageOrdered B y: Dr. Abrams on 03-27-2022 Basophils/100 WBC (Bld) 0.7 % 0-1 [facility] Bilirubin [Mass/Vol] 1.20 mg/dL 0.20-1.00 [facility] Comment on above: For patients on eltr ombopag therapy, use of [place] TBIL is not recommended. Chloride [Moles/Vol] 94 mmol/L 98-107 [facility] Eosinophils/100 WBC (Bld) 1.0 % 0-5 [facility] Glucose [Mass/Vol] 477 mg/dL 74-106 [facility] Comment on above: Critical Result(s) C alled at: 11:26:10 03/27/2022 by: cT Angeles to Rubén STRATTON (ER). Results read back by same.Glucose result greater than or equal to 200 mg/dLsuggests DIABETES MELLITUS per A.D.A. criteria. Neutrophils (Bld) [#/Vol] 8.9 10*3/uL 2.0-7.7 [facility] Neutrophils/100 WBC (Bld) 80.1 % 47-70 [facility] Potassium [Moles/Vol] 4.5 mmol/L 3.5-5.1 [facility] Protein [Mass/Vol] 7.3 g/dL 6.4-8.2 [facility] Sodium [Moles/Vol] 131 mmol/L 136-145 [facility] WBC (Bld) [#/Vol] 11.2 10*3/uL 4.4-11.0 [facility] Blood erythrocytes count (nu mber/volume)Ordered By: Dr. Abrams on 03-27-2022 RBC (Bld) [#/Vol] 5.95 10*6/uL 4.2-5.4 [facility] Blood hemoglobin measurement (mass/volume)Ordered By: Dr. Abrams on 03-27-2022 Hemoglobin (Bld) [Mass/Vol] 16.6 g/dL 12.0-15.0 [facility] Blood lymphocytes/100 leukoc ytesOrdered By: Dr. Abrams on 03-27-2022 Lymphocytes/100 WBC (Bld) 14.4 % 19-41 [facility] Blood monocytes/100 leukocyt esOrdered By: Dr. Abrams on 03-27-2022 Monocytes/100 WBC (Bld) 3.4 % 0-10 [facility] Blood platelet mean volumeOr dered By: Dr. Abrams on 03-27-2022 Platelet mean volume (Bld) [Entitic vol] 9.6 fL 6.2-12.0 [facility] Determination of erythrocyte mean corpuscular volume (MCV)Ordered By: Dr. Abrams on 03-27-2022 MCV (RBC) [Entitic vol] 82.9 fL 81-99 [facility] Hematocrit Auto (Bld) [Volum e fraction]Ordered By: Dr. Abrams on 03-27-2022 Hematocrit (Bld) [Volume fraction] 49.3 % 37-47 [facility] Laboratory - Chemistry and C hemistry - challengeOrdered By: Dr. Abrams on 03-27-2022 ALP [Catalytic activity/Vol] 152 U/L 45-117 [facility] ALT [Catalytic activity/Vol] 22 U/L 13-56 [facility] CO2 [Moles/Vol] 31.0 mmol/L 21.0-32.0 [facility] Globulin (S) [Mass/Vol] 4.2 g/dL 2.2-4.2 [facility] Lipase [Catalytic activity/Vol] 113 U/L 73-393 [facility] Urea nitrogen/Creatinine [Mass ratio] 14.1 mg/mg 10-20 [facility] Laboratory - Hematology and Cell countsOrdered By: Dr. Abrams on 03-27-2022 Erythrocyte distribution width (RBC) [Entitic vol] 38.0 fL 35.1-43.9 [facility] Erythrocyte distribution width (RBC) [Ratio] 12.7 % 11.6-14.6 [facility] Immature granulocytes/100 WBC (Bld) 0.400 % 0.0-0.9 [facility] Comment on above: IG% - Immature Granu locytes (promyelocytes, myelocytes and metamyelocytes) > 1% indicates that a LEFT SHIFT is Present. MCH (RBC) [Entitic mass] 27.9 pg 27.0-32.0 [facility] Nucleated RBC/100 WBC (Bld) [Ratio] 0 % 0-5 [facility] MCHC Auto (RBC) [Mass/Vol]Or dered By: Dr. Abrams on 03-27-2022 MCHC (RBC) [Mass/Vol] 33.7 g/dL 32-36 [facility] No Panel InformationOrdered By: Dr. Abrams on 03-27-2022 Estimated Creatinine Clearance Calc 77.00 ml/min [facility] Estimated GFR (MDRD) Amer 91 mL/min >60 [facility] Comment on above: GFR Calc Estimated GFR (MDRD) Non-Af Amer 75 mL/min >60 [facility] Comment on above: Non- GFR Calc Platelets bldOrdered By: Dr. Abrams on 03-27-2022 Platelets (Bld) [#/Vol] 251 10*3/uL 150-450 [facility] Serum or plasma albumin xiomara urement (mass/volume)Ordered By: Dr. Abrams on 03-27-2022 Albumin [Mass/Vol] 3.1 g/dL 3.2-5.0 [facility] Serum or plasma albumin/glob ulin mass ratioOrdered By: Dr. Abrams on 03-27-2022 Albumin/Globulin [Mass ratio] 0.7 {ratio} 0.9-2.4 [facility] Serum or plasma calcium xiomara urement (mass/volume)Ordered By: Dr. Abrams on 03-27-2022 Calcium [Mass/Vol] 9.5 mg/dL 8.5-10.1 [facility] Serum or plasma creatinine m easurement (mass/volume)Ordered By: Dr. Abrams on 03-27-2022 Creatinine [Mass/Vol] 0.85 mg/dL 0.55-1.02 [facility] Comment on above: The validity of the calculated GFR & GFRAA in patients over 70 years has not been determined. Clinical correlation is essential. Serum or plasma urea nitroge n measurement (mass/volume)Ordered By: Dr. Abrams on 03-27-2022 Urea nitrogen [Mass/Vol] 12 mg/dL 7-18 [facility] Thin prep Papanicolaou smear with manual screeningOrdered By: Dr. Abrams on 03-27-2022 Thin prep Papanicolaou smear with manual screening 17 U/L 15-37 [facility] Thin prep Papanicolaou smear with manual screening 6 5-15 [facility] ABDOMEN AP VIEWon 08-13-2021 ABDOMEN AP VIEW Patient Name: TRENTON JACKSON STUDY: ABDOMEN AP VIEW INDICATION: constipation . COMPARISON: Abdomen radiograph dated 09/22/2019. ACCESSION NUMBER(S): [id number] ORDERING CLINICIAN: ALEX TAPIA FINDINGS: Single AP [...] above. Electronically signed by: STEW CUENCA MD [facility] ANKLE, COMPLETE, MIN 3 VIEWS on 08-13-2021 ANKLE, COMPLETE, MIN 3 VIEWS Patient Name: TRENTON JACKSON STUDY: Left ankle, 3 views. INDICATION: sudden onset pain . COMPARISON: None ACCESSION NUMBER(S): [id number] ORDERING CLINICIAN: ALEX TAPIA FINDINGS: Bones demonstrate [...] Electronically signed by: STEW CUENCA MD Normal [facility] BASIC METABOLIC PANELon 08-02 Anion gap [Moles/Vol] 10 mmol/L Normal 10 - 20 [facility] Comment on above: Performed By: #### B MP #### [address] [address] Calcium [Mass/Vol] 8.9 mg/dL Normal 8.6 - 10.3 [facility] Comment on above: Performed By: #### B MP #### [address] [address] Chloride [Moles/Vol] 97 mmol/L Low 98 - 107 [facility] Comment on above: Performed By: #### B MP #### [address] [address] Creatinine [Mass/Vol] 0.61 mg/dL Normal 0.50 - 1.05 [facility] Comment on above: Performed By: #### B MP #### [address] [address] eGFR FEMALE >90 Normal >90 [facility] Comment on above: Result Comment: CALC ULATIONS OF ESTIMATED GFR ARE PERFORMED USING THE 2020 CKD-EPI STUDY REFIT EQUATION WITHOUT THE RACE VARIABLE FOR THE IDMS-TRACEABLE CREATININE METHODS. https://jasn.asnjournals.org/content//ASN.2020 910669 Performed By: #### B MP #### [address] [address] Glucose [Mass/Vol] 395 mg/dL High 74 - 99 [facility] Comment on above: Performed By: #### B MP #### [address] [address] HCO3 (Bld) [Moles/Vol] 28 mmol/L Normal 21 - 32 [facility] Comment on above: Performed By: #### B MP #### [address] [address] Potassium [Moles/Vol] 4.0 mmol/L Normal 3.5 - 5.3 [facility] Comment on above: Performed By: #### B MP #### [address] [address] Sodium [Moles/Vol] 131 mmol/L Low 136 - 145 [facility] Comment on above: Performed By: #### B MP #### [address] [address] Urea nitrogen [Mass/Vol] 10 mg/dL Normal 6 - 23 [facility] Comment on above: Performed By: #### B MP #### [address] [address] BETA-HYDROXYBUTYRATEon 08-13 BETA-HYDROXYBUTYRATE 0.20 mmol/L Normal 0.02 - 0.27 [facility] Comment on above: Result Comment: The beta-hydroxybutyrate test performance characteristics have been validated by [facility] laboratory. This test has not been approved by the FDA; however, such approval is not necessary. Performed By: #### B HB2 #### [address] [address] CBC AND DIFFERENTIALon 08-13 Basophils (Bld) [#/Vol] 0.10 10*3/uL Normal 0.00 - 0.10 [facility] Comment on above: Performed By: #### C BCDF #### [address] [address] Basophils/100 WBC (Bld) 0.8 % Normal 0.0 - 2.0 [facility] Comment on above: Performed By: #### C BCDF #### [address] [address] Eosinophils (Bld) [#/Vol] 0.20 10*3/uL Normal 0.00 - 0.70 [facility] Comment on above: Performed By: #### C BCDF #### [address] [address] Eosinophils/100 WBC (Bld) 2.1 % Normal 0.0 - 6.0 [facility] Comment on above: Performed By: #### C BCDF #### [address] [address] Erythrocyte distribution width (RBC) [Ratio] 13.0 % Normal 11.5 - 14.5 [facility] Comment on above: Performed By: #### C BCDF #### [address] [address] Hematocrit (Bld) [Volume fraction] 43.3 % Normal 36.0 - 46.0 [facility] Comment on above: Performed By: #### C BCDF #### [address] [address] Hemoglobin (Bld) [Mass/Vol] 14.3 g/dL Normal 12.0 - 16.0 [facility] Comment on above: Performed By: #### C BCDF #### [address] [address] Lymphocytes (Bld) [#/Vol] 1.30 10*3/uL Normal 1.20 - 4.80 [facility] Comment on above: Performed By: #### C BCDF #### [address] [address] Lymphocytes/100 WBC (Bld) 12.0 % Normal 13.0 - 44.0 [facility] Comment on above: Performed By: #### C BCDF #### [address] [address] MCHC (RBC) [Mass/Vol] 33.1 g/dL Normal 32.0 - 36.0 [facility] Comment on above: Performed By: #### C BCDF #### [address] [address] MCV (RBC) [Entitic vol] 83 fL Normal 80 - 100 [facility] Comment on above: Performed By: #### C BCDF #### [address] [address] Monocytes (Bld) [#/Vol] 0.60 10*3/uL Normal 0.10 - 1.00 [facility] Comment on above: Performed By: #### C BCDF #### [address] [address] Monocytes/100 WBC (Bld) 5.6 % Normal 2.0 - 10.0 [facility] Comment on above: Performed By: #### C BCDF #### [address] [address] Neutrophils (Bld) [#/Vol] 8.70 10*3/uL High 1.20 - 7.70 [facility] Comment on above: Result Comment: Perc ent differential counts (%) should be interpreted in the context of the absolute cell counts (cells/L). Performed By: #### C BCDF #### [address] [address] Neutrophils/100 WBC (Bld) 79.5 % Normal 40.0 - 80.0 [facility] Comment on above: Performed By: #### C BCDF #### [address] [address] NUCLEATED RBC 0.1 /100 WBC Normal [facility] Comment on above: Performed By: #### C BCDF #### [address] [address] Platelets (Bld) [#/Vol] 276 10*3/uL Normal 150 - 450 [facility] Comment on above: Performed By: #### C BCDF #### [address] [address] RBC 5.22 x10E12/L High 4.00 - 5.20 [facility] Comment on above: Performed By: #### C BCDF #### [address] [address] WBC (Bld) [#/Vol] 10.9 10*3/uL Normal 4.4 - 11.3 [facility] Comment on above: Performed By: #### C BCDF #### [address] [address] LACTATEon 08-13-2021 Lactate [Moles/Vol] 1.2 mmol/L Normal 0.4 - 2.0 [facility] Comment on above: Result Comment: Marisol puncture immediately after or during the administration of Metamizole may lead to falsely low results. Testing should be performed immediately prior to Metamizole dosing. Performed By: #### L ACT #### [address] [address] Provider Note - ED v3on 08-02 Provider Note - ED v3 Provider Note: Chart Review: ED NOTES ED NOTES: HPI: Patient presents ER today complaining of nausea constipation and left ankle and leg pain. She states that the pain has been going on for several weeks. Denies any strain or trauma. In review of previous notes patient was seen most recently at [place] emergency department on August 09 and at [...] Alert and oriented x4, GCS 15 , managed care specialist II-XII grossly intact. Sensation and motor function of extremities grossly intact. Psych: Appropriate mood and affect. I have reviewed and confirmed nurses/medics notes for patient past, social and family history. Portions of this note were dictated by speech recognition. An attempt at proof reading was made to minimize errors. Minor errors in sales mgr may be present. HISTORY OF PRESENTING ILLNESS [...] Drug Name: (more content not included)... Normal [facility] Triage - EDon 08-13-2021 Triage - ED [...] obeys commands Best Verbal Response: (V5) oriented [place] Score: 15 Allergies: no Mask applied: yes [...] 13-Aug-2021 10:49 by Dayanara Hoyos (RN) Normal [facility] VENOUS BLOOD GASon 2 BASE EXCESS-BLOOD 7.5 mmol/L High -2.0 - 3.0 [facility] Comment on above: Performed By: #### B LGV1 #### [place] [address] BICARB, CALCULATED 32.7 mmol/L High 22.0 - 26.0 [facility] Comment on above: Performed By: #### B LGV1 #### [place] [address] FIO2 21 % Normal [facility] Comment on above: Performed By: #### B LGV1 #### [place] [address] Oxygen (Bld) [Partial pressure] 20 mm[Hg] Low 35 - 45 [facility] Comment on above: Performed By: #### B LGV1 #### [place] [address] PCO2 47 mmHg Normal 41 - 51 [facility] Comment on above: Performed By: #### B LGV1 #### [place] [address] pH (Bld) 7.45 [pH] High 7.33 - 7.43 [facility] Comment on above: Performed By: #### B LGV1 #### [place] [address] SO2 42 % Low 45 - 75 [facility] Comment on above: Performed By: #### B LGV1 #### [place] [address] CBCon 10-01-2019 Erythrocyte distribution width (RBC) [Ratio] Canceled Normal [facility] Comment on above: Order Comment: TEST CBC WAS CANCELLED, 10/01/2019 02:09 ?Cancel Reason: Patient Discharged. Performed By: #### C OAGS #### [facility] [address] [place] [address] Hematocrit (Bld) [Volume fraction] Canceled Normal [facility] Comment on above: Order Comment: TEST CBC WAS CANCELLED, 10/01/2019 02:09 ?Cancel Reason: Patient Discharged. Performed By: #### C OAGS #### [facility] [address] [place] [address] Hemoglobin (Bld) [Mass/Vol] Canceled Normal [facility] Comment on above: Order Comment: TEST CBC WAS CANCELLED, 10/01/2019 02:09 ?Cancel Reason: Patient Discharged. Performed By: #### C OAGS #### [facility] [address] [place] [address] MCHC (RBC) [Mass/Vol] Canceled Normal [facility] Comment on above: Order Comment: TEST CBC WAS CANCELLED, 10/01/2019 02:09 ?Cancel Reason: Patient Discharged. Performed By: #### C OAGS #### [facility] [address] [place] [address] MCV (RBC) [Entitic vol] Canceled Normal [facility] Comment on above: Order Comment: TEST CBC WAS CANCELLED, 10/01/2019 02:09 ?Cancel Reason: Patient Discharged. Performed By: #### C OAGS #### [facility] [address] [place] [address] Nucleated RBC/100 WBC (Bld) [Ratio] Canceled Normal [facility] Comment on above: Order Comment: TEST CBC WAS CANCELLED, 10/01/2019 02:09 ?Cancel Reason: Patient Discharged. Performed By: #### C OAGS #### [facility] [address] [place] [address] Platelets (Bld) [#/Vol] Canceled Normal [facility] Comment on above: Order Comment: TEST CBC WAS CANCELLED, 10/01/2019 02:09 ?Cancel Reason: Patient Discharged. Performed By: #### C OAGS #### [facility] [address] [place] [address] RBC (Bld) [#/Vol] Canceled Normal [facility] Comment on above: Order Comment: TEST CBC WAS CANCELLED, 10/01/2019 02:09 ?Cancel Reason: Patient Discharged. Performed By: #### C OAGS #### [facility] [address] [place] [address] WBC (Bld) [#/Vol] Canceled Normal [facility] Comment on above: Order Comment: TEST CBC WAS CANCELLED, 10/01/2019 02:09 ?Cancel Reason: Patient Discharged. Performed By: #### C OAGS #### [facility] [address] [place] [address] RENAL FUNCTION PANELon 09-30 Albumin [Mass/Vol] Canceled [facility] [facility] Comment [facility]: Order Comment: TEST RENAL FUNCTION PANEL WAS CANCELLED, 10/01/2019 02:09 ?Cancel Reason:Patient Discharged. Performed By: #### C OAGS #### [place] [address] [place] [address] Anion gap [Moles/Vol] Canceled Normal [facility] Comment on above: Order Comment: TEST RENAL FUNCTION PANEL WAS CANCELLED, 10/01/2019 02:09 ?Cancel Reason:Patient Discharged. Performed By: #### C OAGS #### [facility] [address] [place] [address] Calcium [Mass/Vol] Canceled Normal [facility] Comment on above: Order Comment: TEST RENAL FUNCTION PANEL WAS CANCELLED, 10/01/2019 02:09 ?Cancel Reason:Patient Discharged. Performed By: #### C OAGS #### [facility] [address] [place] [address] Chloride [Moles/Vol] Canceled Normal [facility] Comment on above: Order Comment: TEST RENAL FUNCTION PANEL WAS CANCELLED, 10/01/2019 02:09 ?Cancel Reason:Patient Discharged. Performed By: #### C OAGS #### [facility] [address] [place] [address] Creatinine [Mass/Vol] Canceled Normal [facility] Comment on above: Order Comment: TEST RENAL FUNCTION PANEL WAS CANCELLED, 10/01/2019 02:09 ?Cancel Reason:Patient Discharged. Performed By: #### C OAGS #### [facility] [address] [place] [address] GFR- AM. Canceled Normal [facility] Comment on above: Order Comment: TEST RENAL FUNCTION PANEL WAS CANCELLED, 10/01/2019 02:09 ?Cancel Reason:Patient Discharged. Result Comment: CALC ULATIONS OF ESTIMATED GFR ARE PERFORMED USING THE MDRD STUDY EQUATION FOR THE IDMS-TRACEABLE CREATININE METHODS. CLIN CHEM 2007;53:766-72 Performed By: #### C OAGS #### [facility] [address] [place] [address] GFR-NON AM. Canceled Normal [facility] Comment on above: Order Comment: TEST RENAL FUNCTION PANEL WAS CANCELLED, 10/01/2019 02:09 ?Cancel Reason:Patient Discharged. Performed By: #### C OAGS #### [facility] [address] [place] [address] Glucose [Mass/Vol] Canceled Normal [facility] Comment on above: Order Comment: TEST RENAL FUNCTION PANEL WAS CANCELLED, 10/01/2019 02:09 ?Cancel Reason:Patient Discharged. Performed By: #### C OAGS #### [facility] [address] [place] [address] HCO3 (Bld) [Moles/Vol] Canceled Normal [facility] Comment on above: Order Comment: TEST RENAL FUNCTION PANEL WAS CANCELLED, 10/01/2019 02:09 ?Cancel Reason:Patient Discharged. Performed By: #### C OAGS #### [facility] [address] [place] [address] Phosphate [Mass/Vol] Canceled Normal [facility] Comment on above: Order Comment: TEST RENAL FUNCTION PANEL WAS CANCELLED, 10/01/2019 02:09 ?Cancel Reason:Patient Discharged. Result Comment: The performance characteristics of phosphorus testing in heparinized plasma have been validated by the individual laboratory site where testing is performed. Testing on heparinized plasma is not approved by the FDA; however, such approval is not necessary. Performed By: #### C OAGS #### [facility] [address] [place] [address] Potassium [Moles/Vol] Canceled Normal [facility] Comment on above: Order Comment: TEST RENAL FUNCTION PANEL WAS CANCELLED, 10/01/2019 02:09 ?Cancel Reason:Patient Discharged. Performed By: #### C OAGS #### [facility] [address] [place] [address] Sodium [Moles/Vol] Canceled Normal [facility] Comment on above: Order Comment: TEST RENAL FUNCTION PANEL WAS CANCELLED, 10/01/2019 02:09 ?Cancel Reason:Patient Discharged. Performed By: #### C OAGS #### [facility] [address] [place] [address] Urea nitrogen [Mass/Vol] Canceled Normal [facility] Comment on above: Order Comment: TEST RENAL FUNCTION PANEL WAS CANCELLED, 10/01/2019 02:09 ?Cancel Reason:Patient Discharged. Performed By: #### C OAGS #### [facility] [address] [place] [address] C-REACTIVE PROTEINon 020 CRP [Mass/Vol] 0.99 mg/dL Normal [facility] Comment on above: Result Comment: REF VALUE < 1.00 Performed By: #### C OAGS #### [facility] [address] [place] [address] CRP [Mass/Vol] 1.13 mg/dL Abnormal [facility] Comment on above: Result Comment: REF VALUE < 1.00 Performed By: #### C RP #### [facility] [address] [place] [address] CBC AND DIFFERENTIALon 09-29 % AUTOMATED IMMATURE GRAN 0.6 % Normal 0.0 - 0.9 [facility] Comment on above: Result Comment: Vaishali ture Granulocyte Count (IG) includes promyelocytes, myelocytes and metamyelocytes but does not include bands. Percent differential counts (%) should be interpreted in the context of the absolute cell counts (cells/L). Performed By: #### C BCDF #### [facility] [address] [place] [address] Basophils (Bld) [#/Vol] 0.06 10*3/uL Normal 0.00 - 0.10 [facility] Comment on above: Performed By: #### C BCDF #### [facility] [address] [place] [address] Basophils/100 WBC (Bld) 0.8 % Normal 0.0 - 2.0 [facility] Comment on above: Performed By: #### C BCDF #### [facility] [address] [place] [address] Eosinophils (Bld) [#/Vol] 0.15 10*3/uL Normal 0.00 - 0.70 [facility] Comment on above: Performed By: #### C BCDF #### [facility] [address] [place] [address] Eosinophils/100 WBC (Bld) 1.9 % Normal 0.0 - 6.0 [facility] Comment on above: Performed By: #### C BCDF #### [facility] [address] [place] [address] Erythrocyte distribution width (RBC) [Ratio] 14.3 % Normal 11.5 - 14.5 [facility] Comment on above: Performed By: #### C BCDF #### [facility] [address] [place] [address] Hematocrit (Bld) [Volume fraction] 39.8 % Normal 36.0 - 46.0 [facility] Comment on above: Performed By: #### C BCDF #### [facility] [address] [place] [address] Hemoglobin (Bld) [Mass/Vol] 12.9 g/dL Normal 12.0 - 16.0 [facility] Comment on above: Performed By: #### C BCDF #### [facility] [address] [place] [address] Lymphocytes (Bld) [#/Vol] 2.21 10*3/uL Normal 1.20 - 4.80 [facility] Comment on above: Performed By: #### C BCDF #### [facility] [address] [place] [address] Lymphocytes/100 WBC (Bld) 28.1 % Normal 13.0 - 44.0 [facility] Comment on above: Performed By: #### C BCDF #### [facility] [address] [place] [address] MCHC (RBC) [Mass/Vol] 32.4 g/dL Normal 32.0 - 36.0 [facility] Comment on above: Performed By: #### C BCDF #### [facility] [address] [place] [address] MCV (RBC) [Entitic vol] 85 fL Normal 80 - 100 [facility] Comment on above: Performed By: #### C BCDF #### [facility] [address] [place] [address] Monocytes (Bld) [#/Vol] 0.79 10*3/uL Normal 0.10 - 1.00 [facility] Comment on above: Performed By: #### C BCDF #### [facility] [address] [place] [address] Monocytes/100 WBC (Bld) 10.0 % Normal 2.0 - 10.0 [facility] Comment on above: Performed By: #### C BCDF #### [facility] [address] [place] [address] Neutrophils (Bld) [#/Vol] 4.61 10*3/uL Normal 1.20 - 7.70 [facility] Comment on above: Performed By: #### C BCDF #### [facility] [address] [place] [address] Neutrophils/100 WBC (Bld) 58.6 % Normal 40.0 - 80.0 [facility] Comment on above: Performed By: #### C BCDF #### [facility] [address] [place] [address] Nucleated RBC/100 WBC (Bld) [Ratio] 0.0 /100 WBC Normal 0.0-0.0 [facility] Comment on above: Performed By: #### C BCDF #### [facility] [address] [place] [address] Platelets (Bld) [#/Vol] 239 10*3/uL Normal 150 - 450 [facility] Comment on above: Performed By: #### C BCDF #### [facility] [address] [place] [address] RBC (Bld) [#/Vol] 4.70 x10E12/L Normal 4.00 - 5.20 [facility] Comment on above: Performed By: #### C BCDF #### [facility] [address] [place] [address] WBC (Bld) [#/Vol] 7.9 10*3/uL Normal 4.4 - 11.3 [facility] Comment on above: Performed By: #### C BCDF #### [facility] [address] [place] [address] % AUTOMATED IMMATURE GRAN 0.5 % Normal 0.0 - 0.9 [facility] Comment on above: Result Comment: Vaishali ture Granulocyte Count (IG) includes promyelocytes, myelocytes and metamyelocytes but does not include bands. Percent differential counts (%) should be interpreted in the context of the absolute cell counts (cells/L). Performed By: #### C BCDF #### [facility] [address] [place] [address] Basophils (Bld) [#/Vol] 0.06 10*3/uL Normal 0.00 - 0.10 [facility] Comment on above: Performed By: #### C BCDF #### [facility] [address] [place] [address] Basophils/100 WBC (Bld) 0.6 % Normal 0.0 - 2.0 [facility] Comment on above: Performed By: #### C BCDF #### [facility] [address] [place] [address] Eosinophils (Bld) [#/Vol] 0.11 10*3/uL Normal 0.00 - 0.70 [facility] Comment on above: Performed By: #### C BCDF #### [facility] [address] [place] [address] Eosinophils/100 WBC (Bld) 1.1 % Normal 0.0 - 6.0 [facility] Comment on above: Performed By: #### C BCDF #### [facility] [address] [place] [address] Erythrocyte distribution width (RBC) [Ratio] 14.3 % Normal 11.5 - 14.5 [facility] Comment on above: Performed By: #### C BCDF #### [facility] [address] [place] [address] Hematocrit (Bld) [Volume fraction] 39.7 % Normal 36.0 - 46.0 [facility] Comment on above: Performed By: #### C BCDF #### [facility] [address] [place] [address] Hemoglobin (Bld) [Mass/Vol] 12.9 g/dL Normal 12.0 - 16.0 [facility] Comment on above: Performed By: #### C BCDF #### [facility] [address] [place] [address] Lymphocytes (Bld) [#/Vol] 3.06 10*3/uL Normal 1.20 - 4.80 [facility] Comment on above: Performed By: #### C BCDF #### [facility] [address] [place] [address] Lymphocytes/100 WBC (Bld) 30.5 % Normal 13.0 - 44.0 [facility] Comment on above: Performed By: #### C BCDF #### [facility] [address] [place] [address] MCHC (RBC) [Mass/Vol] 32.5 g/dL Normal 32.0 - 36.0 [facility] Comment on above: Performed By: #### C BCDF #### [facility] [address] [place] [address] MCV (RBC) [Entitic vol] 84 fL Normal 80 - 100 [facility] Comment on above: Performed By: #### C BCDF #### [facility] [address] [place] [address] Monocytes (Bld) [#/Vol] 0.96 10*3/uL Normal 0.10 - 1.00 [facility] Comment on above: Performed By: #### C BCDF #### [facility] [address] [place] [address] Monocytes/100 WBC (Bld) 9.6 % Normal 2.0 - 10.0 [facility] Comment on above: Performed By: #### C BCDF #### [facility] [address] [place] [address] Neutrophils (Bld) [#/Vol] 5.78 10*3/uL Normal 1.20 - 7.70 [facility] Comment on above: Performed By: #### C BCDF #### [facility] [address] [place] [address] Neutrophils/100 WBC (Bld) 57.7 % Normal 40.0 - 80.0 [facility] Comment on above: Performed By: #### C BCDF #### [facility] [address] [place] [address] Nucleated RBC/100 WBC (Bld) [Ratio] 0.0 /100 WBC Normal 0.0-0.0 [facility] Comment on above: Performed By: #### C BCDF #### [facility] [address] [place] [address] Platelets (Bld) [#/Vol] 250 10*3/uL Normal 150 - 450 [facility] Comment on above: Performed By: #### C BCDF #### [facility] [address] [place] [address] RBC (Bld) [#/Vol] 4.71 x10E12/L Normal 4.00 - 5.20 [facility] Comment on above: Performed By: #### C BCDF #### [facility] [address] [place] [address] WBC (Bld) [#/Vol] 10.0 10*3/uL Normal 4.4 - 11.3 [facility] Comment on above: Performed By: #### C BCDF #### [facility] [address] [place] [address] COAGULATION SCREENon 020 aPTT Coag (Bld) [Time] 33 s Normal 28 - 38 [facility] Comment on above: Result Comment: THE APTT IS NO LONGER USED FOR MONITORING UNFRACTIONATED HEPARIN THERAPY. FOR MONITORING HEPARIN THERAPY, USE THE HEPARIN ASSAY. Performed By: #### C OAGS #### [facility] [address] [place] [address] INR Coag (PPP) [Relative time] 1.2 {INR} High 0.9 - 1.1 [facility] Comment on above: Performed By: #### C OAGS #### [facility] [address] [place] [address] PT Coag (PPP) [Time] 13.5 s High 9.7 - 12.7 [facility] Comment on above: Performed By: #### C OAGS #### [facility] [address] [place] [address] aPTT Coag (Bld) [Time] 41 s High 28 - 38 [facility] Comment on above: Result Comment: THE APTT IS NO LONGER USED FOR MONITORING UNFRACTIONATED HEPARIN THERAPY. FOR MONITORING HEPARIN THERAPY, USE THE HEPARIN ASSAY. Performed By: #### C OAGS #### [facility] [address] [place] [address] INR Coag (PPP) [Relative time] 2.0 {INR} High 0.9 - 1.1 [facility] Comment on above: Performed By: #### C OAGS #### [facility] [address] [place] [address] PT Coag (PPP) [Time] 22.4 s High 9.7 - 12.7 [facility] Comment on above: Performed By: #### C OAGS #### [facility] [address] [place] [address] COMPREHENSIVE PANELon 2019 Albumin [Mass/Vol] 3.6 g/dL Normal 3.4 - 5.0 [facility] Comment on above: Performed By: #### C MP #### [facility] [address] [place] [address] ALP [Catalytic activity/Vol] 82 U/L Normal 33 - 110 [facility] Comment on above: Performed By: #### C MP #### [facility] [address] [place] [address] ALT [Catalytic activity/Vol] 15 U/L Normal 7 - 45 [facility] Comment on above: Result Comment: Cecily ents treated with Sulfasalazine may generate falsely decreased results for ALT. Performed By: #### C MP #### [facility] [address] [place] [address] Anion gap [Moles/Vol] 16 mmol/L Normal 10 - 20 [facility] Comment on above: Performed By: #### C MP #### [facility] [address] [place] [address] AST [Catalytic activity/Vol] 13 U/L Normal 9 - 39 [facility] Comment on above: Performed By: #### C MP #### [facility] [address] [place] [address] Bilirubin [Mass/Vol] 0.7 mg/dL Normal 0.0 - 1.2 [facility] Comment on above: Performed By: #### C MP #### [facility] [address] [place] [address] Calcium [Mass/Vol] 9.2 mg/dL Normal 8.6 - 10.6 [facility] Comment on above: Performed By: #### C MP #### [facility] [address] [place] [address] Chloride [Moles/Vol] 94 mmol/L Low 98 - 107 [facility] Comment on above: Performed By: #### C MP #### [facility] [address] [place] [address] Creatinine [Mass/Vol] 1.52 mg/dL High 0.50 - 1.05 [facility] Comment on above: Performed By: #### C MP #### [facility] [address] [place] [address] GFR- AM. 44 mL/min/1.73m2 Abnormal >60 [facility] Comment on above: Result Comment: CALC ULATIONS OF ESTIMATED GFR ARE PERFORMED USING THE MDRD STUDY EQUATION FOR THE IDMS-TRACEABLE CREATININE METHODS. CLIN CHEM 2007;53:766-72 Performed By: #### C MP #### [facility] [address] [place] [address] GFR-NON AM. 36 mL/min/1.73m2 Abnormal >60 [facility] Comment on above: Performed By: #### C MP #### [facility] [address] [place] [address] Glucose [Mass/Vol] 161 mg/dL High 74 - 99 [facility] Comment on above: Performed By: #### C MP #### [facility] [address] [place] [address] HCO3 (Bld) [Moles/Vol] 30 mmol/L Normal 21 - 32 [facility] Comment on above: Performed By: #### C MP #### [facility] [address] [place] [address] Potassium [Moles/Vol] 3.7 mmol/L Normal 3.5 - 5.3 [facility] Comment on above: Performed By: #### C MP #### [place] [address] [place] [address] Protein [Mass/Vol] 6.3 g/dL Low 6.4 - 8.2 [facility] Comment on above: Performed By: #### C MP #### [facility] [address] [place] [address] Sodium [Moles/Vol] 136 mmol/L Normal 136 - 145 [facility] Comment on above: Performed By: #### C MP #### [facility] [address] [place] [address] Urea nitrogen [Mass/Vol] 25 mg/dL High 6 - 23 [facility] Comment on above: Performed By: #### C MP #### [facility] [address] [place] [address] Daily Progress Note-Cardiolo gyon 09-30-2019 Daily Progress [...] above. Objective Data: Objective Information: T PRBPSpO2 [id number]/7995% Date/Time09/29 7: 7: 7: 7: 7:46 Range(35.7C [...] Reference Range: STRAW,YELLOW Appearance, Urine CLEAR Specific [place], Urine 1.014 pH, Urine 5.0 Protein, Urine [...] seg dep or elevation on EKG, normal NM intervals -Pain control: 975mg q8h as needed, [...] lasix - Hx of heart cath in [facility] - report not available #Provoked PE [...] the note. I personally evaluated the patient [id number] Electronic Signatures: Quang Chris) (Signed 02-Oct-2019 14:00) Authored: Signature/Cosignature/Att estation Co-Signer: Service, Subjective Data, Objective Data, Assessment and Plan, Signature/Cosignature/Att estation Lilly Barfield (Resident)) (Signed 30-Sep-2019 10:38) Authored: Service, Subjective Data, Objective Data, Assessment and Plan, Signature/Cosignature/Att estation Last Updated: 02-Oct-2019 14:00 by Quang Chris) Normal [facility] Discharge [id number] Discharge Profile2 Discharge Orders: Anticipated Discharge Date: Anticipated Discharge [id number] Anticipated Discharge Time11:33 Problem List: Additional Dx: CHF (congestive heart failure): Catalog Name: Heart failure, unspecified Diabetes mellitus: Catalog Name: Type 2 diabetes mellitus without complications Chest pain: Onset Date: 29-Sep-2019, Catalog Name: Chest pain, unspecified Coronary artery disease: Catalog Name: Atherosclerotic heart disease of [place] coronary artery without angina pectoris Ischemic dilated [...] pounds. Diet: Dietlow sodium, diabetic/carbohydrate counted Diabetic/Carbohydrate Scsdpct98zpxa/Carb meal, 45gram/Carb snack (1999-s) Fluid RestrictionTry not [...] on anti-viral therapy. -Followup routinely with your fuel cell builder. You have a weak heart and they [...] Appointment 01: Physician/Dept/ServiceDr. Abigail Mascorro, Cardiology Scheduled Date/[id number] 11:00 [facility] Cardiology Phone [phone] CommentsPlease do not come into the office. The will contact the patent VIA phone. Follow-Up Appointment 02: Physician/Dept/ServiceDr. Lexis Scanlon - Family Medicine Reason for ReferralEstablish with Primary Care Provider Scheduled Date/[id number] 10:00 LocationPLEASE DO NOT COME INTO THE OFFICE, WILL CONTACT PATIENT VIA PHONE, OFFICE WILL CALL TO CONFIRM APPOINTMENT Phone [phone] CommentsPlease arrive 10-15 minutes early, bring photo ID, current list of medications & dosages, insurance cards and any copay that may apply. If unable to keep this appointment, please call to cancel at least 24 hrs prior to appointment. Electronic Signatures: Kam Hassan (PT ACC REP) (Signed 30-Sep-2019 12:50) Authored: Alyx Martines (PT ACC REP) (Signed 30-Sep-2019 11:25) Authored: Brandon Simpson Form - Chief Contract Officer Summary Lilly Barfield (Resident)) (Signed 30-Sep-2019 11:54) Authored: Discharge Orders, Hospital Course (Home Care/Gold Form), Provider FINAL REVIEW of Orders, Appointments Last Updated: 30-Sep-2019 12:50 by Kam Hassan (PT ACC REP) Normal [facility] EMR ADDONon 09-30-2019 ADDON CONFIRMATION REQUEST REC'D Normal [facility] Comment on above: Performed By: #### C OAGS #### [facility] [address] [place] [address] GLUCOSE-POCTon 09-30-2019 Glucose [Mass/Vol] 210 mg/dL High 74 - 99 [facility] Comment on above: Performed By: #### C BCDF #### [facility] [address] [place] [address] Glucose [Mass/Vol] 230 mg/dL High 74 - 99 [facility] Comment on above: Performed By: #### G EMILY #### [facility] [address] [place] [address] LACTATEon 09-30-2019 Lactate [Moles/Vol] 2.0 mmol/L Normal 0.4 - 2.0 [facility] Comment on above: Result Comment: Marisol puncture immediately after or during the administration of Metamizole may lead to falsely low results. Testing should be performed immediately prior to Metamizole dosing. Performed By: #### L ACT #### [facility] [address] [place] [address] SEDIMENTATION RATE, ERYTHROC YTEon 09-30-2019 SEDIMENTATION RATE, ERYTHROCYTE 30 mm/h High 0 - 20 [facility] Comment on above: Performed By: #### E SRWS #### [facility] [address] [place] [address] TH ABDOMEN AP VIEWon 020 TH ABDOMEN AP VIEW Patient Name: TRENTON JACKSON STUDY: ABDOMEN AP VIEW; 09/30/2019 12:30 am INDICATION: Constipation. COMPARISON: None. ACCESSION NUMBER(S): [id number] ORDERING CLINICIAN: FRANCISCA FERRER FINDINGS: Surgical clips [...] as stated. This study was interpreted at [facility], [place], [place]. Electronically signed by: BEV BUCHANAN MD Normal [facility] TROPONIN Ion 09-30-2019 Troponin I.cardiac [Mass/Vol] Canceled Normal [facility] Comment on above: Order Comment: TEST TROPONIN I WAS CANCELLED, 09/30/2019 14:12 DUPLICATE ORDER, SEE [id number]. Result Comment: LESS THAN 0.04 NG/ML: NEGATIVE [...] performed using different testing methodology at [facility] than at other [facility]. Direct result comparisons should only be made within the same method. . Biotin interference may cause falsely decreased results. Patients taking a Biotin dose of up to 5 mg/day should refrain from taking Biotin for 24 hours before sample collection. Providers may contact their laboratory for further information. Performed By: #### T ROP2 #### [facility] [address] [place] [address] Troponin I.cardiac [Mass/Vol] 0.02 ng/mL Normal 0.00 - 0.03 [facility] Comment on above: Result Comment: LESS THAN [...] performed using different testing methodology at [facility] than at [facility]. Direct result comparisons should only be made within the same method. . Biotin interference may cause falsely decreased results. Patients taking a Biotin dose of up to 5 mg/day should refrain from taking Biotin for 24 hours before sample collection. Providers may contact their laboratory for further information. Performed By: #### C OAGS #### [facility] [address] [place] [address] URINALYSISon 09-30-2019 Appearance (U) CLEAR Normal CLEAR [facility] Comment on above: Performed By: #### U A #### [facility] [address] [place] [address] Bilirubin (U) [Mass/Vol] Negative Normal NEGATIVE [facility] Comment on above: Performed By: #### U A #### [facility] [address] [place] [address] BLOOD Negative Normal NEGATIVE [facility] Comment on above: Performed By: #### U A #### [facility] [address] [place] [address] Color (U) YELLOW Normal STRAW,YELL OW [facility] Comment on above: Performed By: #### U A #### [facility] [address] [place] [address] Glucose [Mass/Vol] Negative Normal NEGATIVE [facility] Comment on above: Performed By: #### U A #### [facility] [address] [place] [address] Ketones Ql (U) Negative Normal NEGATIVE [facility] Comment on above: Performed By: #### U A #### [facility] [address] [place] [address] Leukocyte esterase Test strip Ql (U) Negative Normal NEGATIVE [facility] Comment on above: Performed By: #### U A #### [facility] [address] [place] [address] Nitrite Ql (U) Negative Normal NEGATIVE [facility] Comment on above: Performed By: #### U A #### [facility] [address] [place] [address] pH (Bld) 5.0 Normal 5.0 - 8.0 [facility] Comment on above: Performed By: #### U A #### [facility] [address] [place] [address] Protein (U) [Mass/Vol] Negative Normal NEGATIVE [facility] Comment on above: Performed By: #### U A #### [facility] [address] [place] [address] Specific gravity (U) [Rel density] 1.014 Normal 1.005 - 1.035 [facility] Comment on above: Performed By: #### U A #### [facility] [address] [place] [address] Urobilinogen Qn (U) <2.0 Normal 0.0 - 1.9 [facility] Comment on above: Performed By: #### U A #### [facility] [address] [place] [address] Admission Risk Screen - Adul ton 09-29-2019 [...] falls risk with risk for associated injury [place] Safety InterventionsWDL *orient to call system *instruct [...] instruction; skill demonstration Cultural Considerationsnone Developmental Considerationsnone Advent Considerationsnone Learning Assessment (Other Learner): Other learner [...] Spiritual Screen: Are there any cultural, spiritual, worship practices/values/needs that are important for us to knowno CAGE: Is this an injured patient at a Trauma Center ([facility]/[place]/ [place]): no Vaccinations: Vaccination - Influenza Vaccination Screen: [...] 29-Sep-2019 20:36 by Bina Saunders (RN) Normal [facility] Discharge Planning [id number] 09-29-2019 Discharge Planning Note2 Discharge Planning: Anticipated Discharge [id number] Discharge Planning 09/29/192138 Discharge Planning Note: Patient admitted from [facility] with complaints of chest pain. Patient lives at home with - Curry Ellis [facility]- [phone]. Patient is independent of ADLS and uses a walker and cane at home. Will reassess patient's home going needs prior to discharge. Gian Saunders RN 09/30/2019 @1130 Patient Cargo Broker Note PCN informed per [facility] that pt. would need ride home at discharge. Per medical team pt. can discharge after 12pm. PCN called and spoke with pt. to verify demos. Demos verified. The pt. stated that she is going to call her aunt to see if she can come and pick the pt. up at [facility]. PCN awaiting call back. [facility] aware. UPDATE @1300: PCN called and spoke with the pt. and at this time she was unable to secure a ride home from her aunt. PCN informed her that PCN would contact [facility] and get pt. a ride to her residence. UPDATE @1315: PCN able to secure a ride for pt per [id number]-Cbbf for right now to 1415. PCN called [...] be discharged. [facility] aware. Ada Jasmine, Patient Cargo Broker [phone] 09/30/2019 1400 Patient discharged home with no home care needs, IV removed, acknowledged discharge instructions. Patient left via transport to provide a ride. Vivien Ramesh RN Assessment: Discharge Planning Assessment [id number] Discharge Planning Assessment Completed byJazzmine Villanueva RNboom man Coordinator [phone] Primary Contact Name and NumberHusashley- Curry Jackson- [phone](1) Stated Reason for Admissionchest pain(1) Arrived Fromhospital [...] Planning CommentsDenies need to speak to social services coordinator. This information was obtained via telephonic communication [...] Profile - Adult v2 29-Sep-2019 20:36 Normal [facility] GLUCOSE-POCTon 09-29-2019 Glucose [Mass/Vol] 189 mg/dL High 74 - 99 [facility] Comment on above: Performed By: #### G EMILY #### [facility] [address] [place] [address] Patient Profile - Adult v2on 09-29-2019 Patient Profile - Adult v2 Profile: Initial Info: How to be AddressedShelley(1) Spoken Language PreferredEnglish (1) Are you currently using the Personal Electronic Health Record or rocket staffUHCAREno (1) Stated Reason for Admissionchest pain Primary Contact Name and NumberGomezssonia Ellis [facility] [phone] Wants Family/Rep Notified of Admissionno Notify PCPdeferred, unable to answer [facility] Medications Brought to Hospitalyes General Health: Weight in kg89.2 kilogram(s) Weight in fsc373.6 pound(s) Height in feet5 feet Height in [...] Significant Exposuresecondhand smoke(1) Resource/Environmental Concernsnone Anticipated Transition [facility] Anticipated at Transitionnone Significant IndicatorsComplete Information [...] Profile - Adult v2 28-Sep-2019 10:57 Normal [facility] Surgical Pathology Depar tmenton 08-15-2019 [facility] Surgical Pathology Department Name TRENTON JACKSON. [...] bone underlying the necrotic area appears unremarkable. Short Order Cook sections are submitted in 5 cassettes following decalcification. MY Summary of Cassettes: Specimen Label Site A 1 section of the necrotic area 2 bone margin of great toe 3 bone margin of second toe 4 bone margin of third toe 5 section of necrotic area with adjacent bone my/08/20/2019 Normal [facility] Comment on above: Performed By: #### C [facility] #### [facility] [address] [place] [address] [facility] Surgical Pathology Depar tmenton 06-23-2019 [facility] Surgical Pathology Department Name TRENTON JACKSON. Pathologist: ZOHREH COSTA MD Date of Procedure: 06/23/2019 Date Received: 06/23/2019 Date Reported 06/27/2019 Submitting Physician: QUOC VIRK DPM Location: [facility] To/Referring/Attending: HALIE RIVERA MD Other [...] prior to presentation. She decided to use [id number] aspirin and routine foot care to attend [...] measuring 4 x 3 x 2 cm. Short Order Cook sections are submitted in 4 cassettes. SPS Summary of Cassettes: Specimen Label Site A 1 5th toe bone 2 4th toe bone 3-4 soft tissue Normal [facility] Comment on above: Performed By: #### C BCDF #### [facility] [address] [place] [address] CT ABD/PEL W IVCONon 019 CT ABD/PEL W IVCON * * *Final Report* * * DATE OF EXAM: Apr 08 2019 3:29PM [facility] 0530 - CT ABD/PEL W IVCON / [...] of diverticulitis. Chronic findings as detailed above. Life Sciences Director: PSCB Transcribe Date/Time: Apr 08 2019 3:35P Dictated by : SABINA ODOM MD This examination was interpreted and the report reviewed and electronically signed by: SABINA ODOM MD on Apr 08 2019 3:51PM EST Normal [facility] Comprehensive Panelon 2018 Albumin [Mass/Vol] 3.7 g/dL Normal 3.4-5.0 [facility] Comment on above: Performed By: #### L MACU #### [place] [address] ALP [Catalytic activity/Vol] 131 U/L High 46-116 [facility] Comment on above: Performed By: #### L MACU #### [place] [address] ALT-SGPT Blood 21 U/L Normal 14-63 [facility] Comment on above: Performed By: #### L MACU #### [place] [address] Anion gap [Moles/Vol] 15 mmol/L Normal 8-20 [facility] Comment on above: Performed By: #### L MACU #### [place] [address] AST-SGOT Blood 16 U/L Normal 15-37 [facility] Comment on above: Performed By: #### L MACU #### [place] [address] Bilirubin Ql (U) 0.6 mg/dL Normal 0.2-1.0 [facility] Comment on above: Performed By: #### L MACU #### [place] [address] Calcium [Mass/Vol] 9.4 mg/dL Normal 8.5-10.1 [facility] Comment on above: Performed By: #### L MACU #### [place] [address] CO2 Blood 29 mEq/L Normal 21-32 [facility] Comment on above: Performed By: #### L MACU #### [facility] [address] [place], [place] [address] Creatinine [Mass/Vol] 0.65 mg/dL Normal 0.51-0.95 [facility] Comment on above: Performed By: #### L MACU #### [facility] [address] [place], [place] [address] Glucose [Mass/Vol] 370 mg/dL High 70-99 [facility] Comment on above: Performed By: #### L MACU #### [facility] [address] [place], [place] [address] Protein [Mass/Vol] 8.1 g/dL Normal 6.4-8.2 [facility] Comment on above: Performed By: #### L MACU #### [facility] [address] [place], [place] [address] Urea nitrogen [Mass/Vol] 5 mg/dL Low 7-18 [facility] Comment on above: Performed By: #### L MACU #### [facility] [address] [place], [place] [address] Urea nitrogen/Creatinine [Mass ratio] 8 mg/mg Low 10-20 [facility] Comment on above: Performed By: #### L MACU #### [address] [address] Chloride [Moles/Vol] 98 mmol/L Normal 98-109 [facility] Comment on above: Result Comment: Test ing performed on an Palacio i-STAT. Performed By: #### L MACU #### [address] [address] Potassium [Moles/Vol] 4.1 mmol/L Normal 3.5-4.9 [facility] Comment on above: Result Comment: Test ing performed on an Palacio i-STAT. Performed By: #### L MACU #### [address] [address] Sodium [Moles/Vol] 138 mmol/L Normal 138-146 [facility] Comment on above: Result Comment: Test ing performed on an Palacio i-STAT. Performed By: #### L MACU #### [address], [place] [address] Hemogram/Manual Diffon 04-08 Abs. Baso 0.00 thou/cmm Normal 0.00-0.08 [facility] Comment on above: Performed By: #### L MACU #### [facility] [address] [place] [address] Abs. Eosin 0.39 thou/cmm Normal 0.00-0.41 [facility] Comment on above: Performed By: #### L MACU #### [facility] [address] [place] [address] Abs. Lymph 1.82 thou/cmm Normal 1.50-3.65 [facility] Comment on above: Performed By: #### L MACU #### [facility] [address] [place] [address] Abs. Amador 0.65 thou/cmm Normal 0.20-1.00 [facility] Comment on above: Performed By: #### L MACU #### [place] [address] Abs. Neut (ANC) 10.14 thou/cmm High 3.00-5.67 [facility] Comment on above: Performed By: #### L MACU #### [place] [address] Anisocytosis Ql (Bld) Few Normal [facility] Comment on above: Performed By: #### L MACU #### [place] [address] Basophil 0.0 % Normal [facility] Comment on above: Performed By: #### L MACU #### [place] [address] Eosinophil 3.0 % Normal [facility] Comment on above: Performed By: #### L MACU #### [place] [address] Lymphocyte 14.0 % Normal [facility] Comment on above: Performed By: #### L MACU #### [place] [address] Monocyte 5.0 % Normal [facility] Comment on above: Performed By: #### L MACU #### [facility] [address] [place] [address] Platelets (Bld) [#/Vol] Normal Normal [facility] Comment on above: Performed By: #### L MACU #### [facility] [address] [place] [address] Seg Neutrophil 78.0 % Normal [facility] Comment on above: Performed By: #### L MACU #### [facility] [address] [place] [address] Toxic Granulation Few Normal [facility] Comment on above: Performed By: #### L MACU #### [facility] [address] [place] [address] Diff Type Manual Diff Normal [facility] Comment on above: Performed By: #### L MACU #### [place] [address] Erythrocyte distribution width (RBC) [Ratio] 12.8 % Normal 11.5-15.9 [facility] Comment on above: Performed By: #### L MACU #### [place] [address] Hematocrit (Bld) [Volume fraction] 46.9 % Normal 37.0-47.0 [facility] Comment on above: Performed By: #### L MACU #### [place] [address] Hemoglobin (Bld) [Mass/Vol] 15.9 g/dL Normal 12.0-16.0 [facility] Comment on above: Performed By: #### L MACU #### [place] [address] MCH (RBC) [Entitic mass] 27.8 pg Normal 27.0-31.0 [facility] Comment on above: Performed By: #### L MACU #### [place] [address] MCHC (RBC) [Mass/Vol] 33.9 % Normal 32.0-36.0 [facility] Comment on above: Performed By: #### L MACU #### [facility] [address] [place] [address] MCV (RBC) [Entitic vol] 82.0 fl Normal 81.0-99.0 [facility] Comment on above: Performed By: #### L MACU #### [facility] [address] [place] [address] Platelet mean volume (Bld) [Entitic vol] 9.8 fl Normal 7.1-10.5 [facility] Comment on above: Performed By: #### L MACU #### [facility] [address] [place] [address] Platelets (Bld) [#/Vol] 233 thou/cmm Normal 150-400 [facility] Comment on above: Performed By: #### L MACU #### [place] [address] RBC (Bld) [#/Vol] 5.72 mil/cmm High 4.20-5.40 [facility] Comment on above: Performed By: #### L MACU #### [place] [address] WBC (Bld) [#/Vol] 13.0 thou/cmm High 4.8-10.5 [facility] Comment on above: Performed By: #### L MACU #### [place] [address] Lactic acidon 04-08-2019 Lactate [Moles/Vol] 1.8 mmol/L Normal 0.4-2.0 [facility] Comment on above: Performed By: #### L MACU #### [place] [address] Lipase Bloodon 04-08-2019 Lipase Blood 68 U/L Low 73-393 [facility] Comment on above: Performed By: #### L MACU #### [place] [address] MDRD eGFRon 04-08-2019 GFR/1.73 sq M predicted among non-blacks MDRD (S/P/Bld) [Vol rate/Area] mL/min/{1.73_m2} Normal >60mL/min/ 1.73m2 [facility] Comment on above: Result Comment: If t he patient is , multiply the result by 1.210. Performed By: #### L MACU #### [facility] [address] [place] [address] Troponin Ion 04-08-2019 Troponin I.cardiac [Mass/Vol] ng/mL Normal <=0.07 [facility] Comment on above: Performed By: #### L MACU #### [place] [address] Urinalysis Routineon 019 Appearance (U) CLEAR Normal [facility] Comment on above: Performed By: #### L MACU #### [place] [address] Bilirubin Urine Negative Normal Negative [facility] Comment on above: Performed By: #### L MACU #### [place] [address] Color (U) YELLOW Normal [facility] Comment on above: Performed By: #### L MACU #### [place] [address] Ep Cells Urine 0-2 Normal 0-5 [facility] Comment on above: Performed By: #### L MACU #### [place] [address] Glucose Ql (U) 2+ Abnormal Negative [facility] Comment on above: Performed By: #### L MACU #### [place] [address] Hemoglobin,Urine TRACE-INTACT Abnormal Negative [facility] Comment on above: Performed By: #### L MACU #### [place] [address] Ketone Urine Negative Normal Negative [facility] Comment on above: Performed By: #### L MACU #### [place] [address] Leukocytes Esterase Negative Normal Negative [facility] Comment on above: Performed By: #### L MACU #### [facility] [address] [place] [address] Nitrites Urine Negative Normal Negative [facility] Comment on above: Performed By: #### L MACU #### [facility] [address] [place] [address] pH (U) 5.5 [pH] Normal 5.0-8.0 [facility] Comment on above: Performed By: #### L MACU #### [place] [address] Protein (U) [Mass/Vol] Negative Normal Negative [facility] Comment on above: Performed By: #### L MACU #### [place] [address] RBC LM.HPF (Urine sed) [#/Area] 0-3 Normal 0-3 [facility] Comment on above: Performed By: #### L MACU #### [place] [address] Specific [place], Ur 1.010 Normal 1.005-1 .03 0 [facility] Comment on above: Performed By: #### L MACU #### [place] [address] Urobilinogen,Ur 0.2 EU/dL Normal 0.2-1.0 [facility] Comment on above: Performed By: #### L MACU #### [place] [address] WBC LM.HPF (Urine sed) [#/Area] 0-2 Normal 0-5 [facility] Comment on above: Performed By: #### L MACU #### [place] [address] Urine HCG, Qual.on 9 Beta HCG ( test) Ql (U) Negative Normal Negative [facility] Comment on above: Performed By: #### L MACU #### [place] [address] CT ABD/PEL W IVCONon 019 CT ABD/PEL W IVCON * * *Final Report* * * DATE OF EXAM: Mar 17 2019 12:16PM [facility] 0530 - CT ABD/PEL W IVCON / [...] acute inflammation. Other chronic findings, as above. Life Sciences Director: PSCZulay Transcribe Date/Time: Mar 17 2019 12:22P Dictated by : EDEN CALHOUN MD This examination was interpreted and the report reviewed and electronically signed by: EDEN CALHOUN MD on Mar 17 2019 12:41PM EST Normal [facility] Comprehensive Panelon 2018 Anion gap [Moles/Vol] 13 mmol/L Normal 8-20 [facility] Comment on above: Performed By: #### L MACU #### [address] [address] Chloride [Moles/Vol] 99 mmol/L Normal 98-109 [facility] Comment on above: Result Comment: Test ing performed on an Palacio i-STAT. Performed By: #### L MACU #### [address] [address] Potassium [Moles/Vol] 4.5 mmol/L Normal 3.5-4.9 [facility] Comment on above: Result Comment: Test ing performed on an Palacio i-STAT. Performed By: #### L MACU #### [address] [address] Sodium [Moles/Vol] 135 mmol/L Low 138-146 [facility] Comment on above: Result Comment: Test ing performed on an Palacio i-STAT. Performed By: #### L MACU #### [address] [address] Albumin [Mass/Vol] 3.5 g/dL Normal 3.4-5.0 [facility] Comment on above: Performed By: #### L MACU #### [facility] [address] [place] [address] ALP [Catalytic activity/Vol] 109 U/L Normal 46-116 [facility] Comment on above: Performed By: #### L MACU #### [facility] [address] [place] [address] ALT-SGPT Blood 22 U/L Normal 14-63 [facility] Comment on above: Performed By: #### L MACU #### [facility] [address] [place] [address] AST-SGOT Blood 21 U/L Normal 15-37 [facility] Comment on above: Performed By: #### L MACU #### [facility] [address] [place] [address] Bilirubin Ql (U) 0.7 mg/dL Normal 0.2-1.0 [facility] Comment on above: Performed By: #### L MACU #### [facility] [address] [place] [address] Calcium [Mass/Vol] 9.0 mg/dL Normal 8.5-10.1 [facility] Comment on above: Performed By: #### L MACU #### [facility] [address] [place] [address] CO2 Blood 28 mEq/L Normal 21-32 [facility] Comment on above: Performed By: #### L MACU #### [facility] [address] [place] [address] Creatinine [Mass/Vol] 0.63 mg/dL Normal 0.51-0.95 [facility] Comment on above: Performed By: #### L MACU #### [facility] [address] [place] [address] Glucose [Mass/Vol] 312 mg/dL High 70-99 [facility] Comment on above: Performed By: #### L MACU #### [facility] [address] [place] [address] Protein [Mass/Vol] 7.5 g/dL Normal 6.4-8.2 [facility] Comment on above: Performed By: #### L MACU #### [facility] [address] [place] [address] Urea nitrogen [Mass/Vol] 5 mg/dL Low 7-18 [facility] Comment on above: Performed By: #### L MACU #### [facility] [address] [place] [address] Urea nitrogen/Creatinine [Mass ratio] 8 mg/mg Low 10-20 [facility] Comment on above: Performed By: #### L MACU #### [facility] [address] [place] [address] Hemogram/Diffon 03-17-2019 Abs. Baso 0.11 thou/cmm High 0.00-0.08 [facility] Comment on above: Performed By: #### L MACU #### [facility] [address] [place] [address] Abs. Amador 0.49 thou/cmm Normal 0.20-1.00 [facility] Comment on above: Performed By: #### L MACU #### [facility] [address] [place] [address] Abs. Neut (ANC) 7.08 thou/cmm High 3.00-5.67 [facility] Comment on above: Performed By: #### L MACU #### [facility] [address] [place] [address] Basophils/100 WBC (Bld) 1.1 % Normal [facility] Comment on above: Performed By: #### L MACU #### [place] [address] Eosinophils (Bld) [#/Vol] 0.27 thou/cmm Normal 0.00-0.41 [facility] Comment on above: Performed By: #### L MACU #### [place] [address] Eosinophils/100 WBC (Bld) 2.7 % Normal [facility] Comment on above: Performed By: #### L MACU #### [place] [address] Erythrocyte distribution width (RBC) [Ratio] 12.9 % Normal 11.5-15.9 [facility] Comment on above: Performed By: #### L MACU #### [facility] [address] [place], [place] [address] Hematocrit (Bld) [Volume fraction] 47.5 % High 37.0-47.0 [facility] Comment on above: Performed By: #### L MACU #### [facility] [address] [place], [place] [address] Hemoglobin (Bld) [Mass/Vol] 15.8 g/dL Normal 12.0-16.0 [facility] Comment on above: Performed By: #### L MACU #### [facility] [address] [place], [place] [address] Lymphocytes (Bld) [#/Vol] 2.05 thou/cmm Normal 1.50-3.65 [facility] Comment on above: Performed By: #### L MACU #### [address] [address] Lymphocytes/100 WBC (Bld) 20.5 % Normal [facility] Comment on above: Performed By: #### L MACU #### [facility] [address] [place], [place] [address] MCH (RBC) [Entitic mass] 27.7 pg Normal 27.0-31.0 [facility] Comment on above: Performed By: #### L MACU #### [address] [address] MCHC (RBC) [Mass/Vol] 33.3 % Normal 32.0-36.0 [facility] Comment on above: Performed By: #### L MACU #### [facility] [address] [place], [place] [address] MCV (RBC) [Entitic vol] 83.3 fL Normal 81.0-99.0 [facility] Comment on above: Performed By: #### L MACU #### [address] [address] Monocytes/100 WBC (Bld) 4.9 % Normal [facility] Comment on above: Performed By: #### L MACU #### [facility] [address] [place] [address] Platelet mean volume (Bld) [Entitic vol] 9.9 fL Normal 7.1-10.5 [facility] Comment on above: Performed By: #### L MACU #### [facility] [address] [place], [place] [address] Platelets (Bld) [#/Vol] 240 thou/cmm Normal 150-400 [facility] Comment on above: Performed By: #### L MACU #### [facility] [address] [place] [address] RBC (Bld) [#/Vol] 5.70 mil/cmm High 4.20-5.40 [facility] Comment on above: Performed By: #### L MACU #### [place] [address] Seg Neutrophil 70.8 % Normal [facility] Comment on above: Performed By: #### L MACU #### [facility] [address] [place] [address] WBC (Bld) [#/Vol] 10.0 thou/cmm Normal 4.8-10.5 [facility] Comment on above: Performed By: #### L MACU #### [place] [address] Lipase Bloodon 03-17-2019 Lipase Blood 107 U/L Normal 73-393 [facility] Comment on above: Performed By: #### L MACU #### [facility] [address] [place] [address] MDRD eGFRon 03-17-2019 GFR/1.73 sq M predicted among non-blacks MDRD (S/P/Bld) [Vol rate/Area] mL/min/{1.73_m2} Normal >60mL/min/ 1.73m2 [facility] Comment on above: Result Comment: If t he patient is , multiply the result by 1.210. Performed By: #### L MACU #### [place] [address] Macroscopic Urinalysison Appearance (U) CLEAR Normal [facility] Comment on above: Performed By: #### L MACU #### [facility] [address] [place] [address] Bilirubin Urine Negative Normal Negative [facility] Comment on above: Performed By: #### L MACU #### [facility] [address] [place] [address] Color (U) YELLOW Normal [facility] Comment on above: Performed By: #### L MACU #### [facility] [address] [place] [address] Glucose Ql (U) 2+ Abnormal Negative [facility] Comment on above: Performed By: #### L MACU #### [place] [address] Hemoglobin,Urine Negative Normal Negative [facility] Comment on above: Performed By: #### L MACU #### [place] [address] Ketone Urine Negative Normal Negative [facility] Comment on above: Performed By: #### L MACU #### [place] [address] Leukocytes Esterase Negative Normal Negative [facility] Comment on above: Performed By: #### L MACU #### [place] [address] Nitrites Urine Negative Normal Negative [facility] Comment on above: Performed By: #### L MACU #### [place] [address] pH (U) 6.0 [pH] Normal 5.0-8.0 [facility] Comment on above: Performed By: #### L MACU #### [place] [address] Protein (U) [Mass/Vol] Negative Normal Negative [facility] Comment on above: Performed By: #### L MACU #### [place] [address] Specific [place], Ur 1.020 Normal 1.005-1 .03 0 [facility] Comment on above: Performed By: #### L MACU #### [facility] [address] [place] [address] Urobilinogen,Ur 0.2 EU/dL Normal 0.2-1.0 [facility] Comment on above: Performed By: #### L MACU #### [facility] [address] [place] [address] Troponin Ion 03-17-2019 Troponin I.cardiac [Mass/Vol] ng/mL Normal <=0.07 [facility] Comment on above: Performed By: #### L MACU #### [place] [address] Comprehensive Panelon 2018 Creatinine [Mass/Vol] 0.57 mg/dL Normal 0.51-0.95 [facility] Comment on above: Performed By: #### L MACU #### [place] [address] ALP [Catalytic activity/Vol] 118 U/L High 45-117 [facility] Comment on above: Performed By: #### L MACU #### [place] [address] Bilirubin [Mass/Vol] 0.6 mg/dL Normal 0.2-1.0 [facility] Comment on above: Performed By: #### L MACU #### [place] [address] Protein [Mass/Vol] 7.6 g/dL Normal 6.4-8.2 [facility] Comment on above: Performed By: #### L MACU #### [place] [address] ALT [Catalytic activity/Vol] 21 U/L Normal 12-78 [facility] Comment on above: Performed By: #### L MACU #### [facility] [address] [place] [address] AST [Catalytic activity/Vol] 17 U/L Normal 15-37 [facility] Comment on above: Performed By: #### L MACU #### [place] [address] Urea nitrogen [Mass/Vol] 8 mg/dL Normal 7-18 [facility] Comment on above: Performed By: #### L MACU #### [facility] [address] [place], [place] [address] Glucose [Mass/Vol] 354 mg/dL High 70-99 [facility] Comment on above: Performed By: #### L MACU #### [facility] [address] [place], [place] [address] Albumin [Mass/Vol] 3.5 g/dL Normal 3.4-5.0 [facility] Comment on above: Performed By: #### L MACU #### [facility] [address] [place], [place] [address] Anion gap [Moles/Vol] 8 mmol/L Normal 8-16 [facility] Comment on above: Performed By: #### L MACU #### [address] [address] Calcium [Mass/Vol] 9.1 mg/dL Normal 8.5-10.1 [facility] Comment on above: Performed By: #### L MACU #### [facility] [address] [place], [place] [address] CO2 [Moles/Vol] 29 mmol/L Normal 21-32 [facility] Comment on above: Performed By: #### L MACU #### [facility] [address] [place], [place] [address] Chloride [Moles/Vol] 102 mmol/L Normal 98-107 [facility] Comment on above: Performed By: #### L MACU #### [facility] [address] [place], [place] [address] Potassium [Moles/Vol] 4.8 mmol/L Normal 3.5-5.1 [facility] Comment on above: Performed By: #### L MACU #### [facility] [address] [place], [place] [address] Sodium [Moles/Vol] 134 mmol/L Low 136-145 [facility] Comment on above: Performed By: #### L MACU #### [facility] [address] [place] [address] Hemogramon 03-14-2019 Erythrocyte distribution width (RBC) [Ratio] 12.8 % Normal 11.5-15.9 [facility] Comment on above: Performed By: #### L MACU #### [facility] 1 [place] [address] Hematocrit (Bld) [Volume fraction] 46.8 % Normal 37.0-47.0 [facility] Comment on above: Performed By: #### L MACU #### [place] [address] Hemoglobin (Bld) [Mass/Vol] 15.7 g/dL Normal 12.0-16.0 [facility] Comment on above: Performed By: #### L MACU #### [place] [address] MCH (RBC) [Entitic mass] 27.8 pg Normal 27.0-31.0 [facility] Comment on above: Performed By: #### L MACU #### [place] [address] MCHC (RBC) [Mass/Vol] 33.5 % Normal 32.0-36.0 [facility] Comment on above: Performed By: #### L MACU #### [place] [address] MCV (RBC) [Entitic vol] 83.0 fL Normal 81.0-99.0 [facility] Comment on above: Performed By: #### L MACU #### [place] [address] Platelet mean volume (Bld) [Entitic vol] 9.9 fL Normal 7.1-10.5 [facility] Comment on above: Performed By: #### L MACU #### [place] [address] Platelets (Bld) [#/Vol] 256 thou/cmm Normal 150-400 [facility] Comment on above: Performed By: #### L MACU #### [place] [address] RBC (Bld) [#/Vol] 5.64 mil/cmm High 4.20-5.40 [facility] Comment on above: Performed By: #### L MACU #### [place] [address] WBC (Bld) [#/Vol] 10.6 thou/cmm High 4.8-10.5 [facility] Comment on above: Performed By: #### L MACU #### [place] [address] Lipase Bloodon 03-14-2019 Lipase Blood 104 U/L Normal 73-393 [facility] Comment on above: Performed By: #### L MACU #### [place] [address] MDRD GFRon 03-14-2019 GFR/1.73 sq M predicted among non-blacks MDRD (S/P/Bld) [Vol rate/Area] mL/min/{1.73_m2} Normal >60mL/min/ 1.73m2 [facility] Comment on above: Result Comment: If t he patient is , multiply the result by 1.210. Performed By: #### L MACU #### [place] [address] Macroscopic Urinalysison Appearance (U) CLEAR Normal [facility] Comment on above: Performed By: #### L MACU #### [place] [address] Bilirubin Urine Negative Normal Negative [facility] Comment on above: Performed By: #### L MACU #### [place] [address] Color (U) YELLOW Normal [facility] Comment on above: Performed By: #### L MACU #### [place] [address] Glucose Ql (U) 2+ Abnormal Negative [facility] Comment on above: Performed By: #### L MACU #### [place] [address] Hemoglobin,Urine Negative Normal Negative [facility] Comment on above: Performed By: #### L MACU #### [facility] 1 [place] [address] Ketone Urine Negative Normal Negative [facility] Comment on above: Performed By: #### L MACU #### [place] [address] Leukocytes Esterase Negative Normal Negative [facility] Comment on above: Performed By: #### L MACU #### [facility] 1 [place] [address] Nitrites Urine Negative Normal Negative [facility] Comment on above: Performed By: #### L MACU #### [place] [address] pH (U) 5.5 [pH] Normal 5.0-8.0 [facility] Comment on above: Performed By: #### L MACU #### [place] [address] Protein (U) [Mass/Vol] Negative Normal Negative [facility] Comment on above: Performed By: #### L MACU #### [place] [address] Specific [place], Ur 1.015 Normal 1.005-1 .03 0 [facility] Comment on above: Performed By: #### L MACU #### [place] [address] Urobilinogen,Ur 0.2 EU/dL Normal 0.2-1.0 [facility] Comment on above: Performed By: #### L MACU #### [place] [address] Urine HCG, Qual.on 9 Beta HCG ( test) Ql (U) Negative Normal Negative [facility] Comment on above: Performed By: #### L MACU #### [place] [address] Comprehensive Panelon 2018 Albumin [Mass/Vol] 3.4 g/dL Normal 3.4-5.0 [facility] Comment on above: Performed By: #### L MACU #### [facility] [address] [place], [place] [address] ALP [Catalytic activity/Vol] 109 U/L Normal 46-116 [facility] Comment on above: Performed By: #### L MACU #### [facility] [address] [place] [address] ALT-SGPT Blood 20 U/L Normal 14-63 [facility] Comment on above: Performed By: #### L MACU #### [facility] [address] [place] [address] Anion gap [Moles/Vol] 15 mmol/L Normal 8-20 [facility] Comment on above: Performed By: #### L MACU #### [facility] [address] [place] [address] AST-SGOT Blood 19 U/L Normal 15-37 [facility] Comment on above: Performed By: #### L MACU #### [facility] [address] [place] [address] Bilirubin Ql (U) 0.8 mg/dL Normal 0.2-1.0 [facility] Comment on above: Performed By: #### L MACU #### [facility] [address] [place] [address] Calcium [Mass/Vol] 9.0 mg/dL Normal 8.5-10.1 [facility] Comment on above: Performed By: #### L MACU #### [facility] [address] [place] [address] CO2 Blood 27 mEq/L Normal 21-32 [facility] Comment on above: Performed By: #### L MACU #### [facility] [address] [place] [address] Creatinine [Mass/Vol] 0.62 mg/dL Normal 0.51-0.95 [facility] Comment on above: Performed By: #### L MACU #### [place] [address] Glucose [Mass/Vol] 343 mg/dL High 70-99 [facility] Comment on above: Performed By: #### L MACU #### [facility] [address] [place], [place] [address] Protein [Mass/Vol] 7.5 g/dL Normal 6.4-8.2 [facility] Comment on above: Performed By: #### L MACU #### [facility] [address] [place], [place] [address] Urea nitrogen [Mass/Vol] 3 mg/dL Low 7-25 [facility] Comment on above: Performed By: #### L MACU #### [facility] [address] [place], [place] [address] Urea nitrogen/Creatinine [Mass ratio] 5 mg/mg Low 10-20 [facility] Comment on above: Performed By: #### L MACU #### [facility] [address] [place], [place] [address] Chloride [Moles/Vol] 100 mmol/L Normal 98-109 [facility] Comment on above: Result Comment: Test ing performed on an [employer] i-STAT. Performed By: #### L MACU #### [facility] [address] [place], [place] [address] Potassium [Moles/Vol] 3.7 mmol/L Normal 3.5-4.9 [facility] Comment on above: Result Comment: Test ing performed on an [employer] i-STAT. Performed By: #### L MACU #### [address] [address] Sodium [Moles/Vol] 138 mmol/L Normal 138-146 [facility] Comment on above: Result Comment: Test ing performed on an [place] i-STAT. Performed By: #### L MACU #### [facility] [address] [place], [place] [address] D-Dimer Quantitativeon 10-27 D-Dimer Quantitative 310 ng/mL(FEU) Normal <450 [facility] Comment on above: Result Comment: [...] >=35.8%. Performed By: #### L MACU #### [place] [address] Hemogramon 10-27-2018 Erythrocyte distribution width (RBC) [Ratio] 12.5 % Normal 11.5-15.9 [facility] Comment on above: Performed By: #### L MACU #### [place] [address] Hematocrit (Bld) [Volume fraction] 46.1 % Normal 37.0-47.0 [facility] Comment on above: Performed By: #### L MACU #### [place] [address] Hemoglobin (Bld) [Mass/Vol] 15.8 g/dL Normal 12.0-16.0 [facility] Comment on above: Performed By: #### L MACU #### [place] [address] MCH (RBC) [Entitic mass] 27.8 pg Normal 27.0-31.0 [facility] Comment on above: Performed By: #### L MACU #### [place] [address] MCHC (RBC) [Mass/Vol] 34.3 % Normal 32.0-36.0 [facility] Comment on above: Performed By: #### L MACU #### [place] [address] MCV (RBC) [Entitic vol] 81.0 fL Normal 81.0-99.0 [facility] Comment on above: Performed By: #### L MACU #### [place] [address] Platelet mean volume (Bld) [Entitic vol] 10.0 fL Normal 7.1-10.5 [facility] Comment on above: Performed By: #### L MACU #### [facility] [address] [place], [place] [address] Platelets (Bld) [#/Vol] 223 thou/cmm Normal 150-400 [facility] Comment on above: Performed By: #### L MACU #### [facility] [address] [place], [place] [address] RBC (Bld) [#/Vol] 5.69 mil/cmm High 4.20-5.40 [facility] Comment on above: Performed By: #### L RADHAU #### [address] [address] WBC (Bld) [#/Vol] 10.0 thou/cmm Normal 4.8-10.5 [facility] Comment on above: Performed By: #### L MACU #### [address] [address] MDRD eGFRon 10-27-2018 GFR/1.73 sq M predicted among non-blacks MDRD (S/P/Bld) [Vol rate/Area] mL/min/{1.73_m2} Normal >60mL/min/ 1.73m2 [facility] Comment on above: Result Comment: If t he patient is , multiply the result by 1.210. Performed By: #### L MACU #### [address] [address] N-terminal Pro-BNPon 019 Natriuretic peptide B (Bld) [Mass/Vol] 1340.0 pg/mL Normal [facility] Comment on above: Result Comment: Note new reference range: Normal Reference Range: Patients <75 yrs old <125pg/ml Patients >=75 yrs old <450 pg/ml Performed By: #### L MACU #### [facility] [address] [place], [place] [address] Troponin Ion 10-27-2018 Troponin I.cardiac [Mass/Vol] ng/mL Normal <=0.07 [facility] Comment on above: Performed By: #### L MACU #### [facility] [address] [place], [place] [address] Troponin I.cardiac [Mass/Vol] ng/mL Normal <=0.07 [facility] Comment on above: Performed By: #### L MACU #### [facility] [address] [place], [place] [address] Troponin Ion 10-21-2018 Troponin I.cardiac [Mass/Vol] ng/mL Normal <=0.07 [facility] Comment on above: Performed By: #### L CBCD #### [place] [address] Basic Panelon 10-20-2018 Anion gap [Moles/Vol] 17 mmol/L Normal 8-20 [facility] Comment on above: Performed By: #### L CBCD #### [place] [address] Calcium [Mass/Vol] 9.7 mg/dL Normal 8.5-10.1 [facility] Comment on above: Performed By: #### L CBCD #### [place] [address] CO2 Blood 26 mEq/L Normal 21-32 [facility] Comment on above: Performed By: #### L CBCD #### [place] [address] Creatinine [Mass/Vol] 0.77 mg/dL Normal 0.51-0.95 [facility] Comment on above: Performed By: #### L CBCD #### [place] [address] Glucose [Mass/Vol] 328 mg/dL High 70-99 [facility] Comment on above: Performed By: #### L CBCD #### [place] [address] Urea nitrogen [Mass/Vol] 6 mg/dL Low 7-25 [facility] Comment on above: Performed By: #### L CBCD #### [place] [address] Urea nitrogen/Creatinine [Mass ratio] 8 mg/mg Low 10-20 [facility] Comment on above: Performed By: #### L CBCD #### [facility] [address] [place], [place] [address] Chloride [Moles/Vol] 100 mmol/L Normal 98-109 [facility] Comment on above: Result Comment: Test ing performed on an [employer] i-STAT. Performed By: #### L CBCD #### [facility] [address] [place], [place] [address] Potassium [Moles/Vol] 3.9 mmol/L Normal 3.5-4.9 [facility] Comment on above: Result Comment: Test ing performed on an [employer] i-STAT. Performed By: #### L CBCD #### [address] [address] Sodium [Moles/Vol] 139 mmol/L Normal 138-146 [facility] Comment on above: Result Comment: Test ing performed on an [place] i-STAT. Performed By: #### L CBCD #### [address] [address] D-Dimer Quantitativeon 10-20 D-Dimer Quantitative 310 ng/mL(FEU) Normal <450 [facility] Comment on above: Result Comment: [...] >=35.8%. Performed By: #### L CBCD #### [address] [address] Glucose Meteron 10-20-2018 Glucose [Mass/Vol] 284 mg/dL High 70-99 [facility] Comment on above: Result Comment: MD Flores OTIFIED [place] [address] Performed By: #### L CBCD #### [facility] [address] [place] [address] Hemogram/Manual Diffon 10-20 Abs. Baso 0.00 thou/cmm Normal 0.00-0.08 [facility] Comment on above: Performed By: #### L CBCD #### [facility] [address] [place] [address] Abs. Eosin 0.00 thou/cmm Normal 0.00-0.41 [facility] Comment on above: Performed By: #### L CBCD #### [place] [address] Abs. Lymph 3.17 thou/cmm Normal 1.50-3.65 [facility] Comment on above: Performed By: #### L CBCD #### [facility] [address] [place] [address] Abs. Am[place] 0.98 thou/cmm Normal 0.20-1.00 [facility] Comment on above: Performed By: #### L CBCD #### [place] [address] Abs. Neut (ANC) 8.05 thou/cmm High 3.00-5.67 [facility] Comment on above: Performed By: #### L CBCD #### [facility] [address] [place] [address] Atypical Lymph 4.0 % Normal [facility] Comment on above: Performed By: #### L CBCD #### [facility] [address] [place] [address] Basophil 0.0 % Normal [facility] Comment on above: Performed By: #### L CBCD #### [place] [address] Eosinophil 0.0 % Normal [facility] Comment on above: Performed By: #### L CBCD #### [address] [place], [place] [address] Lymphocyte 22.0 % Normal [facility] Comment on above: Performed By: #### L CBCD #### [facility] [address] [place] [address] Monocyte 8.0 % Normal [facility] Comment on above: Performed By: #### L CBCD #### [facility] [address] [place] [address] Platelets (Bld) [#/Vol] Normal Normal [facility] Comment on above: Performed By: #### L CBCD #### [facility] [address] [place] [address] RBC morphology finding Nom (Bld) Normal Normal [facility] Comment on above: Performed By: #### L CBCD #### [facility] [address] [place] [address] Seg Neutrophil 66.0 % Normal [facility] Comment on above: Performed By: #### L CBCD #### [facility] [address] [place] [address] Diff Type Manual Diff Normal [facility] Comment on above: Performed By: #### L CBCD #### [facility] [address] [place] [address] Erythrocyte distribution width (RBC) [Ratio] 12.9 % Normal 11.5-15.9 [facility] Comment on above: Performed By: #### L CBCD #### [facility] [address] [place] [address] Hematocrit (Bld) [Volume fraction] 47.6 % High 37.0-47.0 [facility] Comment on above: Performed By: #### L CBCD #### [facility] [address] [place] [address] Hemoglobin (Bld) [Mass/Vol] 16.1 g/dL High 12.0-16.0 [facility] Comment on above: Performed By: #### L CBCD #### [place] [address] MCH (RBC) [Entitic mass] 27.8 pg Normal 27.0-31.0 [facility] Comment on above: Performed By: #### L CBCD #### [facility] [address] [place], [place] [address] MCHC (RBC) [Mass/Vol] 33.8 % Normal 32.0-36.0 [facility] Comment on above: Performed By: #### L CBCD #### [facility] [address] [place], [place] [address] MCV (RBC) [Entitic vol] 82.2 fl Normal 81.0-99.0 [facility] Comment on above: Performed By: #### L CBCD #### [facility] [address] [place], [place] [address] Platelet mean volume (Bld) [Entitic vol] 9.9 fl Normal 7.1-10.5 [facility] Comment on above: Performed By: #### L CBCD #### [facility] [address] [place] [id number] Platelets (Bld) [#/Vol] 250 thou/cmm Normal 150-400 [facility] Comment on above: Performed By: #### L CBCD #### [facility] [address] [place], [place] [address] RBC (Bld) [#/Vol] 5.79 mil/cmm High 4.20-5.40 [facility] Comment on above: Performed By: #### L CBCD #### [facility] [address] [place], [place] [address] WBC (Bld) [#/Vol] 12.2 thou/cmm High 4.8-10.5 [facility] Comment on above: Performed By: #### L CBCD #### [facility] [address] [place], [place] [address] MDRD eGFRon 10-20-2018 GFR/1.73 sq M predicted among non-blacks MDRD (S/P/Bld) [Vol rate/Area] mL/min/{1.73_m2} Normal >60mL/min/ 1.73m2 [facility] Comment on above: Result Comment: If t he patient is , multiply the result by 1.210. Performed By: #### L CBCD #### [facility] [address] [place] [address] N-terminal Pro-BNPon 019 Natriuretic peptide B (Bld) [Mass/Vol] 751.0 pg/mL Normal [facility] Comment on above: Result Comment: Note new reference range: Normal Reference Range: Patients <75 yrs old <125pg/ml Patients >=75 yrs old <450 pg/ml Performed By: #### L CBCD #### [facility] [address] [place] [address] Troponin Ion 10-20-2018 Troponin I.cardiac [Mass/Vol] ng/mL Normal <=0.07 [facility] Comment on above: Performed By: #### L CBCD #### [place] [address] Comprehensive Panelon 2018 Albumin [Mass/Vol] 3.1 g/dL Low 3.4-5.0 [facility] Comment on above: Performed By: #### L P14 ####[place] [address] ALP [Catalytic activity/Vol] 93 U/L Normal 46-116 [facility] Comment on above: Performed By: #### L P14 ####[place] [address] ALT-SGPT Blood 22 U/L Normal 14-63 [facility] Comment on above: Performed By: #### L P14 ####[place] [address] Anion gap [Moles/Vol] 13 mmol/L Normal 8-20 [facility] Comment on above: Performed By: #### L P14 ####[place] [address] AST-SGOT Blood 20 U/L Normal 15-37 [facility] Comment on above: Performed By: #### L P14 ####[address] [address] Bilirubin Ql (U) 0.8 mg/dL Normal 0.2-1.0 [facility] Comment on above: Performed By: #### L P14 ####[facility] [place], [place] [address] Calcium [Mass/Vol] 9.2 mg/dL Normal 8.5-10.1 [facility] Comment on above: Performed By: #### L P14 ####[address] [address] CO2 Blood 31 mEq/L Normal 21-32 [facility] Comment on above: Performed By: #### L P14 ####[facility] [place], [place] [address] Creatinine [Mass/Vol] 0.73 mg/dL Normal 0.51-0.95 [facility] Comment on above: Performed By: #### L P14 ####[address] [address] Glucose [Mass/Vol] 228 mg/dL High 70-99 [facility] Comment on above: Performed By: #### L P14 ####[address] [address] Protein [Mass/Vol] 7.0 g/dL Normal 6.4-8.2 [facility] Comment on above: Performed By: #### L P14 ####[address] [address] Urea nitrogen [Mass/Vol] 6 mg/dL Low 7-25 [facility] Comment on above: Performed By: #### L P14 ####[address] [address] Urea nitrogen/Creatinine [Mass ratio] 8 mg/mg Low 10-20 [facility] Comment on above: Performed By: #### L P14 ####[address] [address] Chloride [Moles/Vol] 98 mmol/L Normal 98-109 [facility] Comment on above: Result Comment: Test ing performed on an [place] i-STAT. Performed By: #### L P14 ####[address] [address] Potassium [Moles/Vol] 4.2 mmol/L Normal 3.5-4.9 [facility] Comment on above: Result Comment: Test ing performed on an [employer] i-STAT. Performed By: #### L P14 ####[place] [address] Sodium [Moles/Vol] 138 mmol/L Normal 138-146 [facility] Comment on above: Result Comment: Test ing performed on an [employer] [place] i-STAT. Performed By: #### L P14 ####[place] [address] Hemogramon 10-04-2018 Erythrocyte distribution width (RBC) [Ratio] 12.6 % Normal 11.5-15.9 [facility] [facility] Comment on above: Performed By: #### L CBC ####[place] [address] Hematocrit (Bld) [Volume fraction] 46.2 % Normal 37.0-47.0 [facility] Comment on above: Performed By: #### L CBC ####[place] [address] Hemoglobin (Bld) [Mass/Vol] 15.3 g/dL Normal 12.0-16.0 [facility] Comment on above: Performed By: #### L CBC ####[place] [address] MCH (RBC) [Entitic mass] 27.5 pg Normal 27.0-31.0 [facility] Comment on above: Performed By: #### L CBC ####[place] [address] MCHC (RBC) [Mass/Vol] 33.1 % Normal 32.0-36.0 [facility] Comment on above: Performed By: #### L CBC ####[place] [address] MCV (RBC) [Entitic vol] 83.1 fL Normal 81.0-99.0 [facility] Comment on above: Performed By: #### L CBC ####[place] [address] Platelet mean volume (Bld) [Entitic vol] 9.7 fL Normal 7.1-10.5 [facility] Comment on above: Performed By: #### L CBC ####[facility] [place] [address] Platelets (Bld) [#/Vol] 261 thou/cmm Normal 150-400 [facility] Comment on above: Performed By: #### L CBC ####[facility] [place] [address] RBC (Bld) [#/Vol] 5.56 mil/cmm High 4.20-5.40 [facility] Comment on above: Performed By: #### L CBC ####[place] [address] WBC (Bld) [#/Vol] 11.9 thou/cmm High 4.8-10.5 [facility] Comment on above: Performed By: #### L CBC ####[place] [address] Lactic acidon 10-04-2018 Lactate [Moles/Vol] 1.2 mmol/L Normal 0.4-2.0 [facility] Comment on above: Performed By: #### L CBCD #### [place] [address] Lipase Bloodon 10-04-2018 Lipase Blood 85 U/L Normal 73-393 [facility] Comment on above: Performed By: #### L LIP ####[place] [address] MDRD eGFRon 10-04-2018 GFR/1.73 sq M predicted among non-blacks MDRD (S/P/Bld) [Vol rate/Area] mL/min/{1.73_m2} Normal >60mL/min/ 1.73m2 [facility] Comment on above: Result Comment: If t he patient is , multiply the result by 1.210. Performed By: #### L GFR ####[place] [address] Macroscopic Urinalysison Appearance (U) CLEAR Normal [facility] Comment on above: Performed By: #### L CBCD #### [facility] [place] [address] Bilirubin Urine Negative Normal Negative [facility] Comment on above: Performed By: #### L CBCD #### [facility] [place] [address] Color (U) YELLOW Normal [facility] Comment on above: Performed By: #### L CBCD #### [facility] [place] [address] Glucose Ql (U) TRACE Abnormal Negative [facility] Comment on above: Performed By: #### L CBCD #### [facility] [place] [address] Hemoglobin,Urine Negative Normal Negative [facility] Comment on above: Performed By: #### L CBCD #### [place] [address] Ketone Urine Negative Normal Negative [facility] Comment on above: Performed By: #### L CBCD #### [facility] [place] [address] Leukocytes Esterase Negative Normal Negative [facility] Comment on above: Performed By: #### L CBCD #### [place] [address] Nitrites Urine Negative Normal Negative [facility] Comment on above: Performed By: #### L CBCD #### [place] [address] pH (U) 7.0 [pH] Normal 5.0-8.0 [facility] Comment on above: Performed By: #### L CBCD #### [facility] [place] [address] Protein (U) [Mass/Vol] Negative Normal Negative [facility] Comment on above: Performed By: #### L CBCD #### [place] [address] Specific [place], Ur 1.015 Normal 1.005-1 .03 0 [facility] Comment on above: Performed By: #### L CBCD #### [place] [id number] Urobilinogen,Ur 0.2 EU/dL Normal 0.2-1.0 [facility] Comment on above: Performed By: #### L CBCD #### [facility] [place] [address] Troponin Ion 10-04-2018 Troponin I.cardiac [Mass/Vol] ng/mL Normal <=0.07 [facility] Comment on above: Performed By: #### L TRP ####[facility] [place] [address] Urine HCG, Qual.on 9 Beta HCG ( test) Ql (U) Negative Normal Negative [facility] Comment on above: Performed By: #### L HCG2 ####[facility] [place] [address] Basic Panelon 09-29-2018 Anion gap [Moles/Vol] 14 mmol/L Normal 8-20 [facility] Comment on above: Performed By: #### L GFR #### [facility] [place] [address] Calcium [Mass/Vol] 8.9 mg/dL Normal 8.5-10.1 [facility] Comment on above: Performed By: #### L GFR #### [facility] [place] [address] CO2 Blood 28 mEq/L Normal 21-32 [facility] Comment on above: Performed By: #### L GFR #### [place] [address] Creatinine [Mass/Vol] 0.60 mg/dL Normal 0.51-0.95 [facility] Comment on above: Performed By: #### L GFR #### [facility] [place] [address] Glucose [Mass/Vol] 154 mg/dL High 70-99 [facility] Comment on above: Performed By: #### L GFR #### [facility] [place] [address] Urea nitrogen [Mass/Vol] 5 mg/dL Low 7-25 [facility] Comment on above: Performed By: #### L GFR #### [facility] [place], [place] [address] Urea nitrogen/Creatinine [Mass ratio] 8 mg/mg Low 10-20 [facility] Comment on above: Performed By: #### L GFR #### [facility] [place], [place] [address] Chloride [Moles/Vol] 101 mmol/L Normal 98-109 [facility] Comment on above: Result Comment: Test ing performed on an [place] i-STAT. Performed By: #### L GFR #### [facility] [place], [place] [address] Potassium [Moles/Vol] 3.9 mmol/L Normal 3.5-4.9 [facility] Comment on above: Result Comment: Test ing performed on an [place] i-STAT. Performed By: #### L GFR #### [address] [address] Sodium [Moles/Vol] 139 mmol/L Normal 138-146 [facility] Comment on above: Result Comment: Test ing performed on an [place] i-STAT. Performed By: #### L GFR #### [address] [address] D-Dimer Quantitativeon 09-29 D-Dimer Quantitative 336 ng/mL(FEU) Normal <450 [facility] Comment on above: Result Comment: [...] of >=35.8%. Performed By: #### L DMR ####[address], [place] [address] Hemogramon 09-29-2018 Erythrocyte distribution width (RBC) [Ratio] 12.8 % Normal 11.5-15.9 [facility] Comment on above: Performed By: #### L GFR #### [facility] [place], [place] [address] Hematocrit (Bld) [Volume fraction] 46.3 % Normal 37.0-47.0 [facility] Comment on above: Performed By: #### L GFR #### [facility] [place] [address] Hemoglobin (Bld) [Mass/Vol] 15.7 g/dL Normal 12.0-16.0 [facility] Comment on above: Performed By: #### L GFR #### [place] [address] MCH (RBC) [Entitic mass] 27.8 pg Normal 27.0-31.0 [facility] Comment on above: Performed By: #### L GFR #### [place] [address] MCHC (RBC) [Mass/Vol] 33.9 % Normal 32.0-36.0 [facility] Comment on above: Performed By: #### L GFR #### [place] [address] MCV (RBC) [Entitic vol] 81.9 fL Normal 81.0-99.0 [facility] Comment on above: Performed By: #### L GFR #### [address] [address] Platelet mean volume (Bld) [Entitic vol] 10.0 fL Normal 7.1-10.5 [facility] Comment on above: Performed By: #### L GFR #### [address] [address] Platelets (Bld) [#/Vol] 231 thou/cmm Normal 150-400 [facility] Comment on above: Performed By: #### L GFR #### [place] [address] RBC (Bld) [#/Vol] 5.65 mil/cmm High 4.20-5.40 [facility] Comment on above: Performed By: #### L GFR #### [place] [address] WBC (Bld) [#/Vol] 10.8 thou/cmm High 4.8-10.5 [facility] Comment on above: Performed By: #### L GFR #### [place] [address] MDRD eGFRon 09-29-2018 GFR/1.73 sq M predicted among non-blacks MDRD (S/P/Bld) [Vol rate/Area] mL/min/{1.73_m2} Normal >60mL/min/ 1.73m2 [facility] Comment on above: Result Comment: If t he patient is , multiply the result by 1.210. Performed By: #### L GFR ####[place] [address] Troponin Ion 09-29-2018 Troponin I.cardiac [Mass/Vol] ng/mL Normal <=0.07 [facility] Comment on above: Performed By: #### L TRP ####[place] [address] Troponin I.cardiac [Mass/Vol] ng/mL Normal <=0.07 [facility] Comment on above: Performed By: #### L TRP ####[place] [address] Basic Panelon 09-25-2018 Creatinine [Mass/Vol] 0.64 mg/dL Normal 0.51-0.95 [facility] Comment on above: Performed By: #### L GFR #### [place] [address] Anion gap [Moles/Vol] 10 mmol/L Normal 8-16 [facility] Comment on above: Performed By: #### L GFR #### [place] [address] CO2 [Moles/Vol] 26 mmol/L Normal 21-32 [facility] Comment on above: Performed By: #### L GFR #### [facility] [place], [place] [address] Glucose [Mass/Vol] 87 mg/dL Normal 70-99 [facility] Comment on above: Performed By: #### L GFR #### [facility] [place], [place] [address] Urea nitrogen [Mass/Vol] 13 mg/dL Normal 7-18 [facility] Comment on above: Performed By: #### L GFR #### [facility] [place], [place] [address] Calcium [Mass/Vol] 8.9 mg/dL Normal 8.5-10.1 [facility] Comment on above: Performed By: #### L GFR #### [address] [address] Chloride [Moles/Vol] 104 mmol/L Normal 98-107 [facility] Comment on above: Performed By: #### L GFR #### [address] [address] Potassium [Moles/Vol] 3.6 mmol/L Normal 3.5-5.1 [facility] Comment on above: Performed By: #### L GFR #### [address] [address] Sodium [Moles/Vol] 136 mmol/L Normal 136-145 [facility] Comment on above: Performed By: #### L GFR #### [address] [address] Glucose Meteron 09-25-2018 Glucose [Mass/Vol] 205 mg/dL High 70-99 [facility] Comment on above: Result Comment: CHAYITO MÉNDEZ Performed By: #### L P14 #### [address] [address] Hemogram/Diffon 09-25-2018 Abs Immature Grans 0.04 thou/cmm Normal 0.00-0.05 [facility] Comment on above: Performed By: #### L GFR #### [place] [address] Abs. Baso 0.06 thou/cmm Normal 0.01-0.08 [facility] Comment on above: Result Comment: Smea r scanned; tech agrees with automated differential Performed By: #### L GFR #### [place] [address] Abs. Amador 0.72 thou/cmm High 0.27-0.70 [facility] Comment on above: Performed By: #### L GFR #### [place] [address] Abs. Neut (ANC) 7.66 thou/cmm High 1.56-6.13 [facility] Comment on above: Performed By: #### L GFR #### [place] [address] Basophils/100 WBC (Bld) 0.5 % Normal [facility] Comment on above: Performed By: #### L GFR #### [place] [address] Eosinophils (Bld) [#/Vol] 0.13 thou/cmm Normal 0.00-0.31 [facility] Comment on above: Performed By: #### L GFR #### [place] [address] Eosinophils/100 WBC (Bld) 1.0 % Normal [facility] Comment on above: Performed By: #### L GFR #### [place] [address] Immature Grans 0.30 % Normal [facility] Comment on above: Performed By: #### L GFR #### [place] [address] Lymphocytes (Bld) [#/Vol] 4.07 thou/cmm High 1.18-3.74 [facility] Comment on above: Performed By: #### L GFR #### [place] [address] Lymphocytes/100 WBC (Bld) 32.1 % Normal [facility] Comment on above: Performed By: #### L GFR #### [facility] [address] [place] [address] Monocytes/100 WBC (Bld) 5.7 % Normal [facility] Comment on above: Performed By: #### L GFR #### [facility] [address] [place] [address] Seg Neutrophil 60.4 % Normal [facility] Comment on above: Performed By: #### L GFR #### [facility] [address] [place] [address] Erythrocyte distribution width (RBC) [Ratio] 12.5 % Normal 11.7-14.4 [facility] Comment on above: Performed By: #### L GFR #### [place] [address] Hematocrit (Bld) [Volume fraction] 49.4 % High 34.1-44.9 [facility] Comment on above: Performed By: #### L GFR #### [place] [address] Hemoglobin (Bld) [Mass/Vol] 16.6 g/dL High 11.2-15.7 [facility] Comment on above: Performed By: #### L GFR #### [place] [address] MCH (RBC) [Entitic mass] 27.8 pg Normal 25.6-32.2 [facility] Comment on above: Performed By: #### L GFR #### [place] [address] MCHC (RBC) [Mass/Vol] 33.6 % Normal 31.6-34.8 [facility] Comment on above: Performed By: #### L GFR #### [place] [address] MCV (RBC) [Entitic vol] 82.7 fL Normal 79.4-94.8 [facility] Comment on above: Performed By: #### L GFR #### [place] [address] Platelet mean volume (Bld) [Entitic vol] 9.8 fL Normal 9.4-12.3 [facility] Comment on above: Performed By: #### L GFR #### [facility] [place], [place] [address] Platelets (Bld) [#/Vol] 241 thou/cmm Normal 182-369 [facility] Comment on above: Performed By: #### L GFR #### [facility] [place], [place] [address] RBC (Bld) [#/Vol] 5.97 mil/cmm High 3.93-5.22 [facility] Comment on above: Performed By: #### L GFR #### [place] [address] RDW SD 37.4 fl Normal 36.4-46.3 [facility] Comment on above: Performed By: #### L GFR #### [facility] [place], [place] [address] WBC (Bld) [#/Vol] 12.69 thou/cmm High 3.98-10.04 [facility] Comment on above: Performed By: #### L GFR #### [place] [address] MDRD GFRon 09-25-2018 GFR/1.73 sq M predicted among non-blacks MDRD (S/P/Bld) [Vol rate/Area] mL/min/{1.73_m2} Normal >60mL/min/ 1.73m2 [facility] Comment on above: Result Comment: If t he patient is , multiply the result by 1.210. Performed By: #### L GFR #### [facility] [place] [id number] Urinalysis, reflexon 019 Reflex Comment see below Normal [facility] Comment on above: Result Comment: Refl ex to culture is not indicated based on established laboratory criteria. Performed By: #### L GFR #### [facility] [place], [place] [address] Bacteria LM.HPF (Urine sed) [#/Area] NONE Normal None [facility] Comment on above: Performed By: #### L GFR #### [facility] [address] [place] [address] Ep Cells Urine 13.9 /hpf High 0.0-5.0 [facility] Comment on above: Performed By: #### L GFR #### [facility] [place] [address] Hyaline Cast 2.4 /lpf High 0.0-1.0 [facility] Comment on above: Performed By: #### L GFR #### [place] [address] RBC LM.HPF (Urine sed) [#/Area] 1.3 /[HPF] Normal 0.0-5.0 [facility] Comment on above: Performed By: #### L GFR #### [place] [address] WBC, reflex 2.90 /hpf Normal 0.00-5.00 [facility] Comment on above: Performed By: #### L GFR #### [place] [address] Appearance (U) CLOUDY Normal [facility] Comment on above: Performed By: #### L GFR #### [place] [address] Bilirubin (U) [Mass/Vol] see below Abnormal Negative [facility] Comment on above: Result Comment: Dete cted (Unable to confirm). Performed By: #### L GFR #### [place] [address] Color (U) DK YELLOW Normal [facility] Comment on above: Performed By: #### L GFR #### [place] [address] Glucose Ql (U) 250 mg/dL Abnormal Negative [facility] Comment on above: Performed By: #### L GFR #### [place] [address] Hemoglobin,Urine Negative Normal Negative [facility] Comment on above: Performed By: #### L GFR #### [place] [address] Ketone Urine TRACE Abnormal Negative [facility] Comment on above: Performed By: #### L GFR #### [facility] [address] [place] [address] Leukocyte esterase Test strip Ql (U) TRACE Abnormal Negative [facility] Comment on above: Performed By: #### L GFR #### [facility] [address] [place] [address] Nitrite reflex Negative Normal Negative [facility] Comment on above: Performed By: #### L GFR #### [facility] [address] [place] [address] pH (U) 6.0 [pH] Normal 5.0-8.0 [facility] Comment on above: Performed By: #### L GFR #### [facility] [address] [place] [address] Protein (U) [Mass/Vol] TRACE Abnormal Negative [facility] Comment on above: Performed By: #### L GFR #### [place] [address] Specific [place], Ur 1.030 Normal 1.005-1 .03 0 [facility] Comment on above: Performed By: #### L GFR #### [place] [address] Urobilinogen,Ur 1.0 EU/dL Normal 0.0-1.0 [facility] Comment on above: Performed By: #### L GFR #### [place] [address] Comprehensive Panelon 2018 ALP [Catalytic activity/Vol] 114 U/L Normal 46-116 [facility] Comment on above: Performed By: #### L GFR #### [facility] [address] [place] [address] Bilirubin [Mass/Vol] 1.4 mg/dL High 0.2-1.0 [facility] Comment on above: Performed By: #### L GFR #### [place] [address] AST [Catalytic activity/Vol] 19 U/L Normal 9-37 [facility] Comment on above: Performed By: #### L GFR #### [facility] [place], [place] [address] Creatinine [Mass/Vol] 0.56 mg/dL Normal 0.51-0.95 [facility] Comment on above: Performed By: #### L GFR #### [facility] [place], [place] [address] Protein [Mass/Vol] 6.8 g/dL Normal 6.4-8.2 [facility] Comment on above: Performed By: #### L GFR #### [facility] [place], [place] [address] ALT [Catalytic activity/Vol] 18 U/L Normal 12-78 [facility] Comment on above: Performed By: #### L GFR #### [facility] [place], [place] [address] Glucose [Mass/Vol] 266 mg/dL High 70-99 [facility] Comment on above: Performed By: #### L GFR #### [facility] [place], [place] [address] Albumin [Mass/Vol] 3.2 g/dL Low 3.4-5.0 [facility] Comment on above: Performed By: #### L GFR #### [facility] [place], [place] [address] Anion gap [Moles/Vol] 11 mmol/L Normal 8-16 [facility] Comment on above: Performed By: #### L GFR #### [facility] [place], [place] [address] Calcium [Mass/Vol] 8.9 mg/dL Normal 8.5-10.1 [facility] Comment on above: Performed By: #### L GFR #### [facility] [place], [place] [address] CO2 [Moles/Vol] 25 mmol/L Normal 21-32 [facility] Comment on above: Performed By: #### L GFR #### [facility] [place], [place] [address] Urea nitrogen [Mass/Vol] 8 mg/dL Normal 7-18 [facility] Comment on above: Performed By: #### L GFR #### [facility] [address] [place] [address] Chloride [Moles/Vol] 100 mmol/L Normal 98-107 [facility] Comment on above: Performed By: #### L GFR #### [facility] [address] [place] [address] Potassium [Moles/Vol] 3.9 mmol/L Normal 3.5-5.1 [facility] Comment on above: Performed By: #### L GFR #### [facility] [place] [address] Sodium [Moles/Vol] 132 mmol/L Low 136-145 [facility] Comment on above: Performed By: #### L GFR #### [place] [address] Hemogramon 09-24-2018 Erythrocyte distribution width (RBC) [Ratio] 12.6 % Normal 11.7-14.4 [facility] Comment on above: Performed By: #### L GFR #### [place] [address] Hematocrit (Bld) [Volume fraction] 47.5 % High 34.1-44.9 [facility] Comment on above: Performed By: #### L GFR #### [place] [address] Hemoglobin (Bld) [Mass/Vol] 15.9 g/dL High 11.2-15.7 [facility] Comment on above: Performed By: #### L GFR #### [place] [address] MCH (RBC) [Entitic mass] 27.7 pg Normal 25.6-32.2 [facility] Comment on above: Performed By: #### L GFR #### [place] [address] MCHC (RBC) [Mass/Vol] 33.5 % Normal 31.6-34.8 [facility] Comment on above: Performed By: #### L GFR #### [place] [address] MCV (RBC) [Entitic vol] 82.8 fL Normal 79.4-94.8 [facility] Comment on above: Performed By: #### L GFR #### [place] [address] Platelet mean volume (Bld) [Entitic vol] 9.9 fL Normal 9.4-12.3 [facility] Comment on above: Performed By: #### L GFR #### [place] [address] Platelets (Bld) [#/Vol] 248 thou/cmm Normal 182-369 [facility] Comment on above: Performed By: #### L GFR #### [place] [address] RBC (Bld) [#/Vol] 5.74 mil/cmm High 3.93-5.22 [facility] Comment on above: Performed By: #### L GFR #### [place] [address] RDW SD 38.0 fl Normal 36.4-46.3 [facility] Comment on above: Performed By: #### L GFR #### [place] [address] WBC (Bld) [#/Vol] 11.62 thou/cmm High 3.98-10.04 [facility] Comment on above: Performed By: #### L GFR #### [place] [address] Lipid Profileon 09-24-2018 Cholesterol in HDL [Mass/Vol] 35 mg/dL Normal >40 [facility] Comment on above: Performed By: #### L GFR #### [place] [address] Cholesterol in LDL [Mass/Vol] 120 mg/dL Normal [facility] Comment on above: Result Comment: No C AD and with fewer than 2 CAD risk factors <160 mg/dL No CAD but with 2 or more CAD risk factors <130 mg/dL Definite CAD or other atherosclerotic disease <100 mg/dL Performed By: #### L GFR #### [address], [place] [address] Cholesterol in LDL/Cholesterol in HDL [Mass ratio] 3.4 Normal 0.6-3.6 [facility] Comment on above: Result Comment: LDL, VLDL,LDL/HDL, Invalid if Triglyceride >400 Performed By: #### L GFR #### [facility] [place], [place] [address] Cholesterol.total/Pipe sterol in HDL [Mass ratio] 5.9 {ratio} High 1.8-5.3 [facility] Comment on above: Performed By: #### L GFR #### [facility] [address] [place], [place] [address] Cholesterol [Mass/Vol] 205 mg/dL High 0-199 [facility] Comment on above: Result Comment: <200 Desirable 200-240 Borderline >240 High Performed By: #### L GFR #### [address] [address] Cholesterol in VLDL [Mass/Vol] 50 mg/dL Normal <50 Desired [facility] Comment on above: Performed By: #### L GFR #### [address] [address] Triglyceride [Mass/Vol] 252 mg/dL High 0-149 [facility] Comment on above: Result Comment: < 20 0 Desirable Result invalid if not a fasting specimen. Performed By: #### L GFR #### [address] [address] Protimeon 09-24-2018 INR Coag (PPP) [Relative time] 0.97 {INR} Normal 0.90-1.30 [facility] Comment on above: Result Comment: Charissa min K Antagonist (VKA) Therapeutic Range: INR 2 to 3 (Target INR of 2.5) Note: For patients treated with VKA drugs, such as warfarin, the [place] [employer] 2012 Guideline recommends [...] Chest 2012; 141:7S-47S Sampson RA, et al. [facility] 2017; 70: 252-289 Performed By: #### L GFR #### [place] [address] PT Coag (PPP) [Time] 10.1 s Normal 9.7-13.0 [facility] Comment on above: Performed By: #### L GFR #### [place] [address] Beta Hydroxybutyrateon 09-23 Beta Hydroxybutyrate 0.70 mmol/L High <0.10-0.27 [facility] Comment on above: Performed By: #### L LIP #### [place] [address] CPKon 09-23-2018 CK [Catalytic activity/Vol] 58 U/L Normal 26-192 [facility] Comment on above: Performed By: #### L P14 #### [place] [address] Comprehensive Panelon 2018 Anion gap [Moles/Vol] 19 mmol/L Normal 8-20 [facility] Comment on above: Performed By: #### L LIP #### [place] [address] Glucose [Mass/Vol] 422 mg/dL Critically high 70-99 [facility] Comment on above: Result Comment: RESU LT RECHECKED Performed By: #### L LIP #### [place] [address] Chloride [Moles/Vol] 98 mmol/L Normal 98-109 [facility] Comment on above: Result Comment: Test ing performed on an [place] i-STAT. Performed By: #### L LIP #### [facility] [address] [place] [address] Potassium [Moles/Vol] 3.9 mmol/L Normal 3.5-4.9 [facility] Comment on above: Result Comment: Test ing performed on an [employer] i-STAT. Performed By: #### L LIP #### [facility] [address] [place] [address] Sodium [Moles/Vol] 135 mmol/L Low 138-146 [facility] Comment on above: Result Comment: Test ing performed on an [employer] i-STAT. Performed By: #### L LIP #### [place] [address] Albumin [Mass/Vol] 3.6 g/dL Normal 3.4-5.0 [facility] Comment on above: Performed By: #### L LIP #### [place] [address] ALP [Catalytic activity/Vol] 131 U/L High 46-116 [facility] Comment on above: Performed By: #### L LIP #### [facility] [address] [place] [address] ALT-SGPT Blood 21 U/L Normal 14-63 [facility] Comment on above: Performed By: #### L LIP #### [place] [address] AST-SGOT Blood 28 U/L Normal 15-37 [facility] Comment on above: Performed By: #### L LIP #### [facility] [address] [place] [address] Bilirubin Ql (U) 1.2 mg/dL High 0.2-1.0 [facility] Comment on above: Performed By: #### L LIP #### [facility] [address] [place] [address] Calcium [Mass/Vol] 9.3 mg/dL Normal 8.5-10.1 [facility] Comment on above: Performed By: #### L LIP #### [place] [address] CO2 Blood 26 mEq/L Normal 21-32 [facility] Comment on above: Performed By: #### L LIP #### [facility] [address] [place], [place] [address] Creatinine [Mass/Vol] 0.51 mg/dL Normal 0.51-0.95 [facility] Comment on above: Performed By: #### L LIP #### [facility] [address] [place], [place] [address] Protein [Mass/Vol] 7.7 g/dL Normal 6.4-8.2 [facility] Comment on above: Performed By: #### L LIP #### [facility] [address] [place], [place] [address] Urea nitrogen [Mass/Vol] 9 mg/dL Normal 7-25 [facility] Comment on above: Performed By: #### L LIP #### [facility] [address] [place], [place] [address] Urea nitrogen/Creatinine [Mass ratio] 18 mg/mg Normal 10-20 [facility] Comment on above: Performed By: #### L LIP #### [facility] [address] [place], [place] [address] D-Dimer Quantitativeon 09-23 D-Dimer Quantitative 417 ng/mL(FEU) Normal <450 [facility] Comment on above: Result Comment: [...] >=35.8%. Performed By: #### L P14 #### [facility] [address] [place], [place] [address] Glucose Bloodon 09-23-2018 Glucose [Mass/Vol] 393 mg/dL High 70-99 [facility] Comment on above: Performed By: #### L P14 #### [facility] [address] [place], [place] [address] Glucose Meteron 09-23-2018 Glucose [Mass/Vol] 317 mg/dL High 70-99 [facility] Comment on above: Result Comment: CHAYITO MÉNDEZ MD NOTIFIED [place] [address] Performed By: #### L LIP #### [address] [address] Hemogram/Diffon 09-23-2018 Abs. Baso 0.05 thou/cmm Normal 0.00-0.08 [facility] Comment on above: Performed By: #### L LIP #### [place] [address] Abs. Amador 0.38 thou/cmm Normal 0.20-1.00 [facility] Comment on above: Performed By: #### L LIP #### [place] [address] Abs. Neut (ANC) 8.10 thou/cmm High 3.00-5.67 [facility] Comment on above: Performed By: #### L LIP #### [address] [address] Basophils/100 WBC (Bld) 0.5 % Normal [facility] Comment on above: Performed By: #### L LIP #### [address] [address] Eosinophils (Bld) [#/Vol] 0.05 thou/cmm Normal 0.00-0.41 [facility] Comment on above: Performed By: #### L LIP #### [address] [address] Eosinophils/100 WBC (Bld) 0.5 % Normal [facility] Comment on above: Performed By: #### L LIP #### [place] [address] Erythrocyte distribution width (RBC) [Ratio] 12.9 % Normal 11.5-15.9 [facility] Comment on above: Performed By: #### L LIP #### [facility] [address] [place], [place] [address] Hematocrit (Bld) [Volume fraction] 47.8 % High 37.0-47.0 [facility] Comment on above: Performed By: #### L LIP #### [address] [address] Hemoglobin (Bld) [Mass/Vol] 16.5 g/dL High 12.0-16.0 [facility] Comment on above: Performed By: #### L LIP #### [address] [address] Lymphocytes (Bld) [#/Vol] 1.52 thou/cmm Normal 1.50-3.65 [facility] Comment on above: Performed By: #### L LIP #### [address] [address] Lymphocytes/100 WBC (Bld) 15.0 % Normal [facility] Comment on above: Performed By: #### L LIP #### [address] [address] MCH (RBC) [Entitic mass] 28.0 pg Normal 27.0-31.0 [facility] Comment on above: Performed By: #### L LIP #### [address] [address] MCHC (RBC) [Mass/Vol] 34.5 % Normal 32.0-36.0 [facility] Comment on above: Performed By: #### L LIP #### [address] [address] MCV (RBC) [Entitic vol] 81.0 fL Normal 81.0-99.0 [facility] Comment on above: Performed By: #### L LIP #### [address] [address] Monocytes/100 WBC (Bld) 3.8 % Normal [facility] Comment on above: Performed By: #### L LIP #### [facility] [address] [place] [address] Platelet mean volume (Bld) [Entitic vol] 10.2 fL Normal 7.1-10.5 [facility] Comment on above: Performed By: #### L LIP #### [facility] [address] [place], [place] [address] Platelets (Bld) [#/Vol] 202 thou/cmm Normal 150-400 [facility] Comment on above: Performed By: #### L LIP #### [facility] [address] [place] [address] RBC (Bld) [#/Vol] 5.90 mil/cmm High 4.20-5.40 [facility] Comment on above: Performed By: #### L LIP #### [place] [address] Seg Neutrophil 80.2 % Normal [facility] Comment on above: Performed By: #### L LIP #### [place] [address] WBC (Bld) [#/Vol] 10.1 thou/cmm Normal 4.8-10.8 [facility] Comment on above: Performed By: #### L LIP #### [place] [address] Hgb A1con 09-23-2018 HbA1c (Bld) [Mass fraction] 11.6 % High 4.2-6.3 [facility] Comment on above: Result Comment: Meth od is National Glycohemoglobin Standardization Program (NGSP) compliant. Performed By: #### L P14 #### [place] [address] HbA1c (Bld) [Mass fraction] 286 mg/dl Normal [facility] Comment on above: Performed By: #### L P14 #### [facility] [address] [place] [address] Lipase Bloodon 09-23-2018 Lipase Blood 131 U/L Normal 73-393 [facility] Comment on above: Performed By: #### L LIP #### [place] [address] MDRD eGFRon 09-23-2018 GFR/1.73 sq M predicted among non-blacks MDRD (S/P/Bld) [Vol rate/Area] mL/min/{1.73_m2} Normal >60mL/min/ 1.73m2 [facility] Comment on above: Result Comment: If t he patient is , multiply the result by 1.210. Performed By: #### L LIP #### [place] [address] Magnesium Bloodon 09-23-2018 Magnesium [Mass/Vol] 2.1 mg/dL Normal 1.6-2.6 [facility] Comment on above: Performed By: #### L P14 #### [place] [address] N-terminal Pro-BNPon 019 Natriuretic peptide B (Bld) [Mass/Vol] 2027 pg/mL Normal [facility] Comment on above: Result Comment: Acut e CHF Rule-in <50 yrs old >= 450 pg/ml >50 yrs old >= 900 pg/ml Abnormal Pro-BNP All patients >=300 pg/ml Performed By: #### L P14 #### [place] [address] Troponin Ion 09-23-2018 Troponin I.cardiac [Mass/Vol] ng/mL Normal 0.015-0.[address] [place] [address] Comment on above: Performed By: #### L P14 #### [place] [address] Troponin I.cardiac [Mass/Vol] ng/mL Normal 0.015-0.04 5 [facility] Comment on above: Performed By: #### L P14 #### [place] [address] Troponin I.cardiac [Mass/Vol] ng/mL Normal <=0.07 [facility] Comment on above: Performed By: #### L P14 #### [place] [address] Troponin I.cardiac [Mass/Vol] ng/mL Normal <=0.07 [facility] Comment on above: Performed By: #### L LIP #### [facility] [address] [place] [address] Comprehensive Panelon 2018 Albumin [Mass/Vol] 3.8 g/dL Normal 3.4-5.0 [facility] Comment on above: Performed By: #### L MCBD #### [facility] [address] [place] [address] ALP [Catalytic activity/Vol] 133 U/L High 46-116 [facility] Comment on above: Performed By: #### L MCBD #### [facility] [address] [place] [address] ALT-SGPT Blood 20 U/L Normal 14-63 [facility] Comment on above: Performed By: #### L MCBD #### [facility] [address] [place] [address] AST-SGOT Blood 17 U/L Normal 15-37 [facility] Comment on above: Performed By: #### L MCBD #### [facility] [address] [place] [address] Bilirubin Ql (U) 0.8 mg/dL Normal 0.2-1.0 [facility] Comment on above: Performed By: #### L MCBD #### [facility] [address] [place] [address] Calcium [Mass/Vol] 9.4 mg/dL Normal 8.5-10.1 [facility] Comment on above: Performed By: #### L MCBD #### [facility] [address] [place] [address] Creatinine [Mass/Vol] 0.58 mg/dL Normal 0.51-0.95 [facility] Comment on above: Performed By: #### L MCBD #### [facility] [address] [place] [address] Glucose [Mass/Vol] 375 mg/dL High 70-99 [facility] Comment on above: Performed By: #### L MCBD #### [facility] [address] [place] [address] Protein [Mass/Vol] 7.9 g/dL Normal 6.4-8.2 [facility] Comment on above: Performed By: #### L MCBD #### [facility] [address] [place], [place] [address] Urea nitrogen [Mass/Vol] 5 mg/dL Low 7-25 [facility] Comment on above: Performed By: #### L MCBD #### [facility] [address] [place], [place] [address] Urea nitrogen/Creatinine [Mass ratio] 9 mg/mg Low 10-20 [facility] Comment on above: Performed By: #### L MCBD #### [facility] [address] [place], [place] [address] Anion gap [Moles/Vol] 15 mmol/L Normal 8-20 [facility] Comment on above: Performed By: #### L MCBD #### [facility] [address] [place], [place] [address] CO2 Blood 27 mEq/L Normal 21-32 [facility] Comment on above: Performed By: #### L MCBD #### [facility] [address] [place], [place] [address] Chloride [Moles/Vol] 97 mmol/L Low 98-109 [facility] Comment on above: Result Comment: Test ing performed on an [employer] i-STAT. Performed By: #### L MCBD #### [address] [address] Potassium [Moles/Vol] 4.5 mmol/L Normal 3.5-4.9 [facility] Comment on above: Result Comment: Test ing performed on an [employer] i-STAT. Performed By: #### L MCBD #### [facility] [address] [place], [place] [address] Sodium [Moles/Vol] 135 mmol/L Low 138-146 [facility] Comment on above: Result Comment: Test ing performed on an [employer] i-STAT. Performed By: #### L MCBD #### [address] [address] Hemogram/Diffon 09-06-2018 Abs. Baso 0.05 thou/cmm Normal 0.00-0.08 [facility] Comment on above: Performed By: #### L MCBD #### [facility] [address] [place], [place] [address] Abs. Amador 0.43 thou/cmm Normal 0.20-1.00 [facility] Comment on above: Performed By: #### L MCBD #### [facility] [address] [place], [place] [address] Abs. Neut (ANC) 5.29 thou/cmm Normal 3.00-5.67 [facility] Comment on above: Performed By: #### L MCBD #### [facility] [address] [place], [place] [address] Basophils/100 WBC (Bld) 0.7 % Normal [facility] Comment on above: Performed By: #### L MCBD #### [address] [address] Eosinophils (Bld) [#/Vol] 0.11 thou/cmm Normal 0.00-0.41 [facility] Comment on above: Performed By: #### L MCBD #### [place] [address] Eosinophils/100 WBC (Bld) 1.4 % Normal [facility] Comment on above: Performed By: #### L MCBD #### [address] [address] Erythrocyte distribution width (RBC) [Ratio] 12.9 % Normal 11.5-15.9 [facility] Comment on above: Performed By: #### L MCBD #### [facility] [address] [place] [address] Hematocrit (Bld) [Volume fraction] 48.3 % High 37.0-47.0 [facility] Comment on above: Performed By: #### L MCBD #### [facility] [address] [place], [place] [address] Hemoglobin (Bld) [Mass/Vol] 16.4 g/dL High 12.0-16.0 [facility] Comment on above: Performed By: #### L MCBD #### [facility] [address] [place], [place] [address] Lymphocytes (Bld) [#/Vol] 1.72 thou/cmm Normal 1.50-3.65 [facility] Comment on above: Performed By: #### L MCBD #### [facility] [address] [place], [place] [address] Lymphocytes/100 WBC (Bld) 22.6 % Normal [facility] Comment on above: Performed By: #### L MCBD #### [facility] [address] [place], [place] [address] MCH (RBC) [Entitic mass] 27.8 pg Normal 27.0-31.0 [facility] Comment on above: Performed By: #### L MCBD #### [facility] [address] [place] [address] MCHC (RBC) [Mass/Vol] 34.0 % Normal 32.0-36.0 [facility] Comment on above: Performed By: #### L MCBD #### [facility] [address] [place] [address] MCV (RBC) [Entitic vol] 82.0 fL Normal 81.0-99.0 [facility] Comment on above: Performed By: #### L MCBD #### [place] [address] Monocytes/100 WBC (Bld) 5.7 % Normal [facility] Comment on above: Performed By: #### L MCBD #### [facility] [address] [place] [address] Platelet mean volume (Bld) [Entitic vol] 10.2 fL Normal 7.1-10.5 [facility] Comment on above: Performed By: #### L MCBD #### [facility] [address] [place], [place] [address] Platelets (Bld) [#/Vol] 211 thou/cmm Normal 150-400 [facility] Comment on above: Performed By: #### L MCBD #### [place] [address] RBC (Bld) [#/Vol] 5.89 mil/cmm High 4.20-5.40 [facility] Comment on above: Performed By: #### L MCBD #### [facility] [address] [place] [address] Seg Neutrophil 69.6 % Normal [facility] Comment on above: Performed By: #### L MCBD #### [facility] [address] [place] [address] WBC (Bld) [#/Vol] 7.6 thou/cmm Normal 4.8-10.8 [facility] Comment on above: Performed By: #### L MCBD #### [place] [address] Ketoneson 09-06-2018 Ketones Ql (U) Negative Normal Negative [facility] Comment on above: Performed By: #### L MCBD #### [place] [address] Lipase Bloodon 09-06-2018 Lipase Blood 112 U/L Normal 73-393 [facility] Comment on above: Performed By: #### L LIP #### [place] [address] MDRD eGFRon 09-06-2018 GFR/1.73 sq M predicted among non-blacks MDRD (S/P/Bld) [Vol rate/Area] mL/min/{1.73_m2} Normal >60mL/min/ 1.73m2 [facility] Comment on above: Result Comment: If t he patient is , multiply the result by 1.210. Performed By: #### L LIP #### [facility] [address] [place] [address] Macroscopic Urinalysison Appearance (U) CLEAR Normal [facility] Comment on above: Performed By: #### L LIP #### [place] [address] Bilirubin Urine Negative Normal Negative [facility] Comment on above: Performed By: #### L LIP #### [place] [address] Color (U) YELLOW Normal [facility] Comment on above: Performed By: #### L LIP #### [facility] [address] [place] [address] Glucose Ql (U) 2+ Abnormal Negative [facility] Comment on above: Performed By: #### L LIP #### [facility] [address] [place] [address] Hemoglobin,Urine Negative Normal Negative [facility] Comment on above: Performed By: #### L LIP #### [facility] [address] [place] [address] Ketone Urine Negative Normal Negative [facility] Comment on above: Performed By: #### L LIP #### [place] [address] Leukocytes Esterase Negative Normal Negative [facility] Comment on above: Performed By: #### L LIP #### [place] [address] Nitrites Urine Negative Normal Negative [facility] Comment on above: Performed By: #### L LIP #### [place] [address] pH (U) 7.0 [pH] Normal 5.0-8.0 [facility] Comment on above: Performed By: #### L LIP #### [place] [address] Protein (U) [Mass/Vol] Negative Normal Negative [facility] Comment on above: Performed By: #### L LIP #### [place] [address] Specific [place], Ur 1.020 Normal 1.005-1 .03 0 [facility] Comment on above: Performed By: #### L LIP #### [place] [address] Urobilinogen,Ur 0.2 EU/dL Normal 0.0-1.0 [facility] Comment on above: Performed By: #### L LIP #### [place] [address] Basic Panelon 08-16-2018 Anion gap [Moles/Vol] 16 mmol/L Normal 8-20 [facility] Comment on above: Performed By: #### L MCBD #### [facility] [address] [place], [place] [address] Chloride [Moles/Vol] 99 mmol/L Normal 98-109 [facility] Comment on above: Result Comment: Test ing performed on an [employer] i-STAT. Performed By: #### L MCBD #### [facility] [address] [place], [place] [address] Potassium [Moles/Vol] 3.9 mmol/L Normal 3.5-4.9 [facility] Comment on above: Result Comment: Test ing performed on an [employer] i-STAT. Performed By: #### L MCBD #### [facility] [address] [place], [place] [address] Sodium [Moles/Vol] 137 mmol/L Low 138-146 [facility] Comment on above: Result Comment: Test ing performed on an [employer] i-STAT. Performed By: #### L MCBD #### [facility] [address] [place], [place] [address] Calcium [Mass/Vol] 9.3 mg/dL Normal 8.5-10.1 [facility] Comment on above: Performed By: #### L MCBD #### [facility] [address] [place], [place] [address] CO2 Blood 26 mEq/L Normal 21-32 [facility] Comment on above: Performed By: #### L MCBD #### [address] [address] Creatinine [Mass/Vol] 0.57 mg/dL Normal 0.51-0.95 [facility] Comment on above: Performed By: #### L MCBD #### [facility] [address] [place], [place] [address] Glucose [Mass/Vol] 336 mg/dL High 70-99 [facility] Comment on above: Performed By: #### L MCBD #### [address] [address] Urea nitrogen [Mass/Vol] 7 mg/dL Normal 7-25 [facility] Comment on above: Performed By: #### L MCBD #### [facility] [address] [place] [address] Urea nitrogen/Creatinine [Mass ratio] 12 mg/mg Normal 10-20 [facility] Comment on above: Performed By: #### L MCBD #### [facility] [address] [place] [address] Hemogram/Diffon 08-16-2018 Abs. Baso 0.08 thou/cmm Normal 0.00-0.08 [facility] Comment on above: Performed By: #### L MCBD #### [facility] [address] [place] [address] Abs. Amador 0.61 thou/cmm Normal 0.20-1.00 [facility] Comment on above: Performed By: #### L MCBD #### [facility] [address] [place] [address] Abs. Neut (ANC) 8.11 thou/cmm High 3.00-5.67 [facility] Comment on above: Performed By: #### L MCBD #### [facility] [address] [place] [address] Basophils/100 WBC (Bld) 0.7 % Normal [facility] Comment on above: Performed By: #### L MCBD #### [facility] [address] [place] [address] Eosinophils (Bld) [#/Vol] 0.07 thou/cmm Normal 0.00-0.41 [facility] Comment on above: Performed By: #### L MCBD #### [place] [address] Eosinophils/100 WBC (Bld) 0.6 % Normal [facility] Comment on above: Performed By: #### L MCBD #### [facility] [address] [place] [address] Erythrocyte distribution width (RBC) [Ratio] 12.9 % Normal 11.5-15.9 [facility] Comment on above: Performed By: #### L MCBD #### [place] [address] Hematocrit (Bld) [Volume fraction] 46.9 % Normal 37.0-47.0 [facility] Comment on above: Performed By: #### L MCBD #### [facility] [address] [place], [place] [address] Hemoglobin (Bld) [Mass/Vol] 16.3 g/dL High 12.0-16.0 [facility] Comment on above: Performed By: #### L MCBD #### [facility] [address] [place], [place] [address] Lymphocytes (Bld) [#/Vol] 2.63 thou/cmm Normal 1.50-3.65 [facility] Comment on above: Performed By: #### L MCBD #### [facility] [address] [place], [place] [address] Lymphocytes/100 WBC (Bld) 22.9 % Normal [facility] Comment on above: Performed By: #### L MCBD #### [address] [address] MCH (RBC) [Entitic mass] 28.0 pg Normal 27.0-31.0 [facility] Comment on above: Performed By: #### L MCBD #### [address] [address] MCHC (RBC) [Mass/Vol] 34.8 % Normal 32.0-36.0 [facility] Comment on above: Performed By: #### L MCBD #### [address] [address] MCV (RBC) [Entitic vol] 80.4 fL Low 81.0-99.0 [facility] Comment on above: Performed By: #### L MCBD #### [address] [address] Monocytes/100 WBC (Bld) 5.3 % Normal [facility] Comment on above: Performed By: #### L MCBD #### [address] [address] Platelet mean volume (Bld) [Entitic vol] 10.1 fL Normal 7.1-10.5 [facility] Comment on above: Performed By: #### L MCBD #### [facility] [address] [place], [place] [address] Platelets (Bld) [#/Vol] 257 thou/cmm Normal 150-400 [facility] Comment on above: Performed By: #### L MCBD #### [facility] [address] [place] [address] RBC (Bld) [#/Vol] 5.83 mil/cmm High 4.20-5.40 [facility] Comment on above: Performed By: #### L MCBD #### [facility] [address] [place] [address] Seg Neutrophil 70.5 % Normal [facility] Comment on above: Performed By: #### L MCBD #### [facility] [address] [place] [address] WBC (Bld) [#/Vol] 11.5 thou/cmm High 4.8-10.8 [facility] Comment on above: Performed By: #### L MCBD #### [place] [address] MDRD eGFRon 08-16-2018 GFR/1.73 sq M predicted among non-blacks MDRD (S/P/Bld) [Vol rate/Area] mL/min/{1.73_m2} Normal >60mL/min/ 1.73m2 [facility] Comment on above: Result Comment: If t he patient is , multiply the result by 1.210. Performed By: #### L MCBD #### [facility] [address] [place] [address] Basic Panelon 07-31-2018 Anion gap [Moles/Vol] 17 mmol/L Normal 8-20 [facility] Comment on above: Performed By: #### L MCBD #### [facility] [address] [place] [id number] Chloride [Moles/Vol] 97 mmol/L Low 98-109 [facility] Comment on above: Result Comment: Test ing performed on an [place] i-STAT. Performed By: #### L MCBD #### [address] [place], [place] [address] Potassium [Moles/Vol] 4.4 mmol/L Normal 3.5-4.9 [facility] Comment on above: Result Comment: Test ing performed on an [employer] i-STAT. Performed By: #### L MCBD #### [facility] [address] [place], [place] [address] Sodium [Moles/Vol] 134 mmol/L Low 138-146 [facility] Comment on above: Result Comment: Test ing performed on an [employer] i-STAT. Performed By: #### L MCBD #### [facility] [address] [place], [place] [address] Calcium [Mass/Vol] 9.2 mg/dL Normal 8.5-10.1 [facility] Comment on above: Performed By: #### L MCBD #### [address] [address] CO2 Blood 24 mEq/L Normal 21-32 [facility] Comment on above: Performed By: #### L MCBD #### [address] [address] Creatinine [Mass/Vol] 0.52 mg/dL Normal 0.51-0.95 [facility] Comment on above: Performed By: #### L MCBD #### [facility] [address] [place], [place] [address] Glucose [Mass/Vol] 444 mg/dL Critically high 70-99 [facility] Comment on above: Performed By: #### L MCBD #### [facility] [address] [place], [place] [address] Urea nitrogen [Mass/Vol] 7 mg/dL Normal 7-25 [facility] Comment on above: Performed By: #### L MCBD #### [facility] [address] [place], [place] [address] Urea nitrogen/Creatinine [Mass ratio] 14 mg/mg Normal 10-20 [facility] Comment on above: Performed By: #### L MCBD #### [address] [address] Hemogram/Diffon 07-31-2018 Abs. Baso 0.05 thou/cmm Normal 0.00-0.08 [facility] Comment on above: Performed By: #### L SHCG #### [facility] [address] [place], [place] [address] Abs. Amador 0.63 thou/cmm Normal 0.20-1.00 [facility] Comment on above: Performed By: #### L SHCG #### [facility] [address] [place] [address] Abs. Neut (ANC) 8.64 thou/cmm High 3.00-5.67 [facility] Comment on above: Performed By: #### L SHCG #### [place] [address] Basophils/100 WBC (Bld) 0.4 % Normal [facility] Comment on above: Performed By: #### L SHCG #### [place] [address] Eosinophils (Bld) [#/Vol] 0.16 thou/cmm Normal 0.00-0.41 [facility] Comment on above: Performed By: #### L SHCG #### [place] [address] Eosinophils/100 WBC (Bld) 1.4 % Normal [facility] Comment on above: Performed By: #### L SHCG #### [place] [address] Erythrocyte distribution width (RBC) [Ratio] 13.4 % Normal 11.5-15.9 [facility] Comment on above: Performed By: #### L SHCG #### [place] [address] Hematocrit (Bld) [Volume fraction] 49.1 % High 37.0-47.0 [facility] Comment on above: Performed By: #### L SHCG #### [place] [address] Hemoglobin (Bld) [Mass/Vol] 17.0 g/dL High 12.0-16.0 [facility] Comment on above: Performed By: #### L SHCG #### [facility] [address] [place], [place] [address] Lymphocytes (Bld) [#/Vol] 2.12 thou/cmm Normal 1.50-3.65 [facility] Comment on above: Performed By: #### L SHCG #### [facility] [address] [place], [place] [address] Lymphocytes/100 WBC (Bld) 18.3 % Normal [facility] Comment on above: Performed By: #### L SHCG #### [facility] [address] [place], [place] [address] MCH (RBC) [Entitic mass] 27.8 pg Normal 27.0-31.0 [facility] Comment on above: Performed By: #### L SHCG #### [facility] [address] [place], [place] [address] MCHC (RBC) [Mass/Vol] 34.6 % Normal 32.0-36.0 [facility] Comment on above: Performed By: #### L SHCG #### [facility] [address] [place], [place] [address] MCV (RBC) [Entitic vol] 80.4 fL Low 81.0-99.0 [facility] Comment on above: Performed By: #### L SHCG #### [address] [address] Monocytes/100 WBC (Bld) 5.4 % Normal [facility] Comment on above: Performed By: #### L SHCG #### [facility] [address] [place], [place] [address] Platelet mean volume (Bld) [Entitic vol] 10.2 fL Normal 7.1-10.5 [facility] Comment on above: Performed By: #### L SHCG #### [facility] [address] [place], [place] [address] Platelets (Bld) [#/Vol] 209 thou/cmm Normal 150-400 [facility] Comment on above: Performed By: #### L SHCG #### [facility] [address] [place], [place] [address] RBC (Bld) [#/Vol] 6.11 mil/cmm High 4.20-5.40 [facility] Comment on above: Performed By: #### L SHCG #### [facility] [address] [place] [address] Seg Neutrophil 74.5 % Normal [facility] Comment on above: Performed By: #### L SHCG #### [facility] [address] [place] [address] WBC (Bld) [#/Vol] 11.6 thou/cmm High 4.8-10.8 [facility] Comment on above: Performed By: #### L SHCG #### [place] [address] MDRD eGFRon 07-31-2018 GFR/1.73 sq M predicted among non-blacks MDRD (S/P/Bld) [Vol rate/Area] mL/min/{1.73_m2} Normal >60mL/min/ 1.73m2 [facility] Comment on above: Result Comment: If t he patient is , multiply the result by 1.210. Performed By: #### L MCBD #### [place] [address] Rapid Influenza A/Bon 2018 Rapid Influenza A/B See below Normal Negative [facility] Comment on above: Result Comment: Nega tive for influenza A and B. Performed By: #### L MCBD #### [place] [address] Urinalysis Routineon 019 Appearance (U) CLEAR Normal [facility] Comment on above: Performed By: #### L MCBD #### [place] [address] Bilirubin Urine Negative Normal Negative [facility] Comment on above: Performed By: #### L MCBD #### [place] [address] Color (U) YELLOW Normal [facility] Comment on above: Performed By: #### L MCBD #### [address], [place] [address] Ep Cells Urine 2-5 Normal 0-5 [facility] Comment on above: Performed By: #### L MCBD #### [facility] [address] [place] [address] Glucose Ql (U) 2+ Abnormal Negative [facility] Comment on above: Performed By: #### L MCBD #### [facility] [address] [place] [address] Hemoglobin,Urine Negative Normal Negative [facility] Comment on above: Performed By: #### L MCBD #### [facility] [address] [place] [address] Ketone Urine Negative Normal Negative [facility] Comment on above: Performed By: #### L MCBD #### [facility] [address] [place] [address] Leukocytes Esterase Negative Normal Negative [facility] Comment on above: Performed By: #### L MCBD #### [facility] [address] [place] [address] Nitrites Urine Negative Normal Negative [facility] Comment on above: Performed By: #### L MCBD #### [place] [address] pH (U) 6.0 [pH] Normal 5.0-8.0 [facility] Comment on above: Performed By: #### L MCBD #### [facility] [address] [place] [address] Protein (U) [Mass/Vol] TRACE Abnormal Negative [facility] Comment on above: Performed By: #### L MCBD #### [facility] [address] [place] [address] RBC LM.HPF (Urine sed) [#/Area] 0-3 Normal 0-3 [facility] Comment on above: Performed By: #### L MCBD #### [facility] [address] [place] [address] Specific [place], Ur 1.015 Normal 1.005-1 .03 0 [facility] Comment on above: Performed By: #### L MCBD #### [address] [address] Urobilinogen,Ur 0.2 EU/dL Normal 0.0-1.0 [facility] Comment on above: Performed By: #### L MCBD #### [facility] [address] [place] [address] WBC LM.HPF (Urine sed) [#/Area] 0-2 Normal 0-5 [facility] Comment on above: Performed By: #### L MCBD #### [place] [address] CASE MANAGEMon 07-21-2018 CASE MANAGEM HNO ID: [id number] Author: Jameson Sanders (Lisw) Service: (none) Author Type: Director Of Billing Type: Care Mgt Progress Note Filed: 07/21/2018 [...] CONTACT RESOURCES: NARCISA provided financial resources for [facility]. The pt plans to follow up with [facility] for anxiety and depression. [facility] and they will contact the pt tomorrow. SIGNATURE: NARCISA [facility] PATIENT NAME: Trenton Jackson DATE: July 21, 2018 TIME: 1:10 PM PAGER/CONTACT #: [phone] [facility] CASE MGT INIT [facility] 2018 CASE MGT INIT [facility] HNO ID: [id number] Author: Jameson Sanders (Lisw) Service: (none) Author Type: Director Of Billing Type: Care Mgt Initial Assessment Filed: 07/21/2018 1:09 PM Note Text: CARE MANAGEMENT: ASSESSMENT AND DISCHARGE PLAN SERVICE DATE: 07/21/2018 SERVICE TIME: 12:00 PM PRIMARY CARE PHYSICIAN: Uziel Conteh MD - Pt confirmed and is agreeable to [facility] scheduling a f/u apt. POWER PLANT MANAGER sent a task. ADMISSION STATUS: Observation Needs Prior to Discharge: Ready for Discharge MEDICAL: Patient/Short Order Cook Stated Goals: To return home to life as it was Health Insurance: [facility] MEDICAID None Health Issues Impacting Discharge Plan: Newly diagnosed Chest Pain and Chronic CAD, uncontrolled diabetes, anxiety Last Admission Date: Previous admit date: 06/08/2018 Is this Within the Past 30 days? No Advance Directive: Current Advance Directive: None Adhesive Bandage Making Operator Attempted to Assist with AD Completion: [...] Glucometer Has the Patient Been in a Shelter Facility in the Past 30 days? No SOCIAL: Living Arrangement: Home Lives With: Spouse and children Financial Resources: Unemployed Primary Contact: Extended Emergency Contact Information Primary Emergency Contact: Curry Jackson Jr Address: [address] [place] [address] [facility] Mobile Relation: Spouse Secondary Emergency Contact: Rebecca Dueñas Address: [place] [address] [facility] Relation: Mother Supportive: Yes Other Important [...] 0 I feel financially burdened by my [id number]-[id number] expenses for my prescription medication: Disagree completely [...] Home Psych Facility/Counseling [facility] NARCISA met with the pt at bedside [...] did provide a list of resources for [employer]. The pt has been active with [facility] in the past for anxiety and depression and plans to make another appointment as she has been struggling again. SIGNATURE: NARCISA [facility] PATIENT NAME: Trenton Jackson DATE: July 21, 2018 TIME: 1:00 PM PAGER/CONTACT #: [phone] [facility]2018 [facility] Letter Text July 21, 2018 Trenton Jackson [address] [place] [id number] Dear Ms. Jackson, The nurses and staff of [facility] hope this letter finds you feeling well [...] free to contact me, Bety Alcaraz RN ([phone]) or email me at, [email or web address] Additionally, you will receive a survey [...] participation and thank you for choosing the [facility] for your health needs. Sincerely, Nurse Wash And Greaser: Bety Alcaraz RN ([phone]) [facility] Unit: 3 Observation Letter Text July 22, 2018 Department of Hospital Medicine [address] [place] [address] Re: Trenton Jackson Dear Dr. Conteh: A patient of your practice, Trenton Jackson (: 1970) was treated at [facility] under the care of the [facility] Department of Hospital Medicine, and discharged on 07/21/2018. A transcribed discharge summary should be forthcoming promptly. If you need additional information or assistance, you may contact the Department of Hospital Medicine at [phone] during regular business hours, and we?ll be happy to assist you. Best Regards, Juancarlos Ann Normal [facility] CARRIEDSon 07-21-2018 [facility] HNO ID: [id number] Author: Magda Molina) [place] Service: Hospital Medicine Author Type: Nurse Practitioner Type: Discharge Summaries Filed: 07/21/2018 11:41 AM Note Text: ----- Attestation signed by Lei Roman at 07/21/2018 12:09 PM [facility] STAFF PHYSICIAN NOTE OF PERSONAL INVOLVEMENT IN CARE I have reviewed the documentation obtained and documented by the team healthcare provider (medical student, fellow, resident, nurse practitioner or physician assistant community director) and I personally participated in the jones components. I have discussed the case and management of the patient's care. Lei Roman MD Hospital Medicine Staff PAGER: [phone] DATE of Service: 07/21/2018 TIME of Service: [...] provider in one week and with primary fuel cell builder as scheduled. We discussed increasing dose of [...] mild, abuse Frailty Coronary artery disease involving big sandy coronary artery of big sandy heart without angina pectoris Resolved Problems: * [...] to call for appointment?: Yes Uziel Conteh [phone] [place] [address] PCP Requested Referral Additional Provider to Provider [...] called for EMS to take her to [place] ED around 7 am. Patient was recommended to go to a hospital with PCI capacity but the patient declined and [facility]. Initial work up in the [...] with long-term current use of insulin ([facility]) 12/06/2017 - Present Primary hypertension 12/06/2017 - Present Dyslipidemia 11/30/2017 - Present Smoker 12/02/2017 - Present Frailty 07/20/2018 - Present Coronary artery disease involving big sandy coronary artery of big sandy heart without angina pectoris 07/21/2018 - Present Chronic systolic heart failure (HCC) 06/08/2018 - Present Chest pain at rest 11/30/2017 - Present Cardiomyopathy ([facility]) 12/02/2017 - Present Cannabis use disorder, mild, abuse 07/20/2018 - Present Anxiety 02/20/2017 - Present Resolved Hospital Problems as of 07/21/2018 None Transitions of Care Critical Issues: SPECIALIST FOLLOW-UP: PCP in 1 week, Cardiology as scheduled LABS AND PROCEDURES PENDING AT DISCHARGE: No pending results. FOLLOW-UP APPOINTMENTS ALREADY SCHEDULED WITH A [facility] PROVIDER: No future appointments. ALLERGIES Allergen [...] minutes SIGNATURE: Magda Truong APRN.CNP PAGER/CONTACT #: [phone] DATE: July 21, 2018 TIME: 11:38 AM [facility] CONSULTon 07-21-2018 CONSULT HNO ID: [id number] Author: Torito Foley Service: Cardiovascular Disease Author [...] including tobacco use. The patient presented to [place] emergency room with a complaint of a [...] appointments with prior cardiologists. Torito Foley MD, [facility] Nichelle and Yuliya Richards Department of Cardiovascular Medicine Heart and Vascular [facility] Office [facility]/ [address], [address] [place] [address] Tel. [phone] SIGNATURE: Torito Foley MD PATIENT NAME: Trenton Jackson DATE: July 21, 2018 TIME: 8:51 AM PAGER/CONTACT #: [phone] Normal [facility] Lipaseon 07-21-2018 Lipase enzyme act/vol 21 U/L Normal [facility] Comment on above: Performed By: #### L IPA ####[facility] [address] [place], [place] [phone] NURSING PROGon 07-21-2018 Protein mass conc HNO ID: [id number] Author: Dayanara (Rn) CHAYITO Alexander Service: (none) Author Type: Registered Nurse Type: Nursing Progress Note Filed: 07/21/2018 1:30 PM Note Text: Nursing Progress Note Patient Name: Trenton Jackson Patient Location: [place] [id number] Daily Note: 0745 RN assumed care of [...] answered. This note was completed by: Dayanara Alxeander RN [facility] Protein mass conc HNO ID: [id number] Author: Katrina (Rn) CHAYITO Patrick Service: (none) Author Type: Registered Nurse Type: Nursing Progress Note Filed: 07/21/2018 6:50 AM Note Text: Nursing Progress Note Patient Name: Trenton Jackson Patient Location: [id number] Daily Note: 1939: patient observed in bed [...] completed by: Katrina Patrick RN [facility] PROGRESSon 07-21-2018 Protein mass conc HNO ID: [id number] Author: Ghassan Logan Service: General Internal Medicine [...] July 21, 2018 6:51 AM [facility] Troponin Ton 07-21-2018 Troponin T.cardiac mass conc ug/L Normal 0.000-0.02 9 [facility] Comment on above: Performed By: #### T NT ####[facility] [address] [place] [phone] Basic Panelon 07-20-2018 Anion gap [Moles/Vol] 17 mmol/L Normal 8-20 [facility] Comment on above: Performed By: #### L SHCG #### [address] [address] Chloride [Moles/Vol] 95 mmol/L Low 98-109 [facility] Comment on above: Result Comment: Test ing performed on an [place] i-STAT. Performed By: #### L SHCG #### [address] [address] Sodium [Moles/Vol] 135 mmol/L Low 138-146 [facility] Comment on above: Result Comment: Test ing performed on an [place] i-STAT. Performed By: #### L SHCG #### [facility] [address] [place], [place] [address] Calcium [Mass/Vol] 9.4 mg/dL Normal 8.5-10.1 [facility] Comment on above: Performed By: #### L SHCG #### [facility] [address] [place], [place] [address] CO2 Blood 27 mEq/L Normal 21-32 [facility] Comment on above: Performed By: #### L SHCG #### [address] [address] Creatinine [Mass/Vol] 0.54 mg/dL Normal 0.51-0.95 [facility] Comment on above: Performed By: #### L SHCG #### [address] [address] Glucose [Mass/Vol] 400 mg/dL High 70-99 [facility] Comment on above: Performed By: #### L SHCG #### [facility] [address] [place], [place] [address] Urea nitrogen [Mass/Vol] 5 mg/dL Low 7-25 [facility] Comment on above: Performed By: #### L SHCG #### [address] [address] Urea nitrogen/Creatinine [Mass ratio] 9 mg/mg Low 10-20 [facility] Comment on above: Performed By: #### L SHCG #### [facility] [address] [place], [place] [address] CBCon 07-20-2018 Erythrocyte distribution width Ratio (RBC) 13.3 % Normal 11.5-15.0 [facility] Comment on above: Performed By: #### C BC ####[facility] [address] [place] [phone] Hematocrit Volume Fraction (Bld) 48.4 % High 36.0-46.0 [facility] Comment on above: Performed By: #### C BC ####[facility] [address] [place] [address] Hemoglobin mass conc (Bld) 16.7 g/dL High 11.5-15.5 [facility] Comment on above: Performed By: #### C BC ####[facility] [address] [place] [address] MCH Entitic mass (RBC) 27.4 pG Normal 26.0-34.0 [facility] Comment on above: Performed By: #### C BC ####[facility] [address] [place] [address] MCHC mass conc (RBC) 34.5 g/dL Normal 30.5-36.0 [facility] Comment on above: Performed By: #### C BC ####[facility] [address] [place] [address] MCV Entitic volume (RBC) 79.3 fL Low 80.0-100.0 [facility] Comment on above: Performed By: #### C BC ####[facility] [address] [place] [address] Platelet mean volume Entitic volume (Bld) 10.1 fL Normal 9.0-12.7 [facility] Comment on above: Performed By: #### C BC ####[facility] [address] [place] [address] Platelets #/vol (Bld) 242 10*3/uL Normal 150-400 [facility] Comment on above: Performed By: #### C BC ####[facility] [address] [place] [address] RBC #/vol (Bld) 6.10 10*6/uL High 3.90-5.20 [facility] Comment on above: Performed By: #### C BC ####[facility] [address] [place] [address] WBC #/vol (Bld) 11.50 10*3/uL High 3.70-11.00 [facility] Comment on above: Performed By: #### C BC ####[facility] [address] [place] [address] D-Dimer Quantitativeon 07-20 D-Dimer Quantitative 224 ng/mL(FEU) Normal <450 [facility] Comment on above: Result Comment: [...] >=38.9%. Performed By: #### L SHCG #### [address] [address] ECG COMPLETEon 07-20-2018 ECG COMPLETE NAME : SUSI JACKSON PID : [id number] : 1970 Gender : Female Race : ORD : [id number] Procedure Date : Jul 20 2018 17:43:40 Edit Date : Jul 22 2018 11:17:53 Diagnosis:SINUS TACHYCARDIA LEFT AXIS DEVIATION SEPTAL INFARCT (CITED ON OR BEFORE 30-NOV-2017) ABNORMAL ECG WHEN COMPARED WITH ECG OF 14-DEC-2017 14:52, QUESTIONABLE CHANGE IN INITIAL FORCES OF ANTERIOR LEADS Confirmed by MD DEVORAH, ALVIN ([id number]) on 07/22/2018 11:17:50 AM Ventricular Rate : 122 BPM Atrial Rate : 122 BPM P-R Interval : 144 ms QRS Duration : 96 ms Q-T Interval : 336 ms QTC Calculation(Bezet) : 478 ms P Reserve : 48 degrees R Reserve : -61 degrees T Reserve : 65 degrees Test Reason : Chest Pain Location : 15 : 3V 323.1 Overread By : MD DEVORAH,ALVIN Edited By : MD FAIRCHILD QARAB Referred By : ZOHREH HARRINGTON Acquired by : [id number], Normal [facility] Glucose Meteron 07-20-2018 Glucose [Mass/Vol] 330 mg/dL High 70-99 [facility] Comment on above: Result Comment: MD Flores OTIFIED Testing performed at [place] [id number] Performed By: #### L SHCG #### [place] [address] HISTORY PHYSICALon 9 HISTORY PHYSICAL HNO ID: [id number] Author: Ghassan Logan Service: General Internal Medicine [...] patient directed ED [facility] despite counseling by day physicians that [...] ischemic cardiomyopathy, LAD 80% stenosis on [facility] in December 2017, Cardiology at main [...] called for EMS to take her to [place] ED around 7 am. Patient htne was recommended to go to a hospital with PCI capacity but the patient declined and [facility]. Of note the patient has [...] 2017. PCP is Uziel Conteh MD in [place]. Patient lives in [place]. Review of the Systems: (positives in bold) [...] 5. The patient will be transferred to [facility] for assessment of myocardial viability and [...] July 20, 2018 Time: 4:18 PM [facility] Hemoglobin A1con 07-20-2018 Hemoglobin A1c/Hemoglobin.total mass fraction (Bld) 275 mg/dL [facility] Comment on above: Result Comment: eAG: (Estimated average glucose) is a calculated value from HgbA1c and is account development representative of the average blood glucose level in the last 2-3 month period. Performed By: #### H BA1C ####[facility] [place], [place] [phone] Hemoglobin A1c/Hemoglobin.total mass fraction (Bld) 11.2 % High 4.3-5.6 [facility] Comment on above: Result Comment: Amer ican Diabetes Association guidelines indicate that patients with HgbA1c in the range 5.7-6.4% are at increased risk for development of diabetes, and intervention by lifestyle modification may be beneficial. HgbA1c greater or equal to 6.5% is considered diagnostic of diabetes. Performed By: #### H BA1C ####[facility] [place], [place] [phone] Hemogram/Diffon 07-20-2018 Abs. Baso 0.06 thou/cmm Normal 0.00-0.08 [facility] Comment on above: Performed By: #### L SHCG #### [facility] [address] [place] [address] Abs. Amador 0.45 thou/cmm Normal 0.20-1.00 [facility] Comment on above: Performed By: #### L SHCG #### [facility] [address] [place] [address] Abs. Neut (ANC) 7.40 thou/cmm High 3.00-5.67 [facility] Comment on above: Performed By: #### L SHCG #### [facility] [address] [place] [address] Basophils/100 WBC (Bld) 0.6 % Normal [facility] Comment on above: Performed By: #### L SHCG #### [facility] [address] [place] [address] Eosinophils (Bld) [#/Vol] 0.06 thou/cmm Normal 0.00-0.41 [facility] Comment on above: Performed By: #### L SHCG #### [place] [address] Eosinophils/100 WBC (Bld) 0.6 % Normal [facility] Comment on above: Performed By: #### L SHCG #### [facility] [address] [place] [address] Erythrocyte distribution width (RBC) [Ratio] 13.3 % Normal 11.5-15.9 [facility] Comment on above: Performed By: #### L SHCG #### [facility] [address] [place] [address] Hematocrit (Bld) [Volume fraction] 49.9 % High 37.0-47.0 [facility] Comment on above: Performed By: #### L SHCG #### [facility] [address] [place] [address] Hemoglobin (Bld) [Mass/Vol] 17.3 g/dL High 12.0-16.0 [facility] Comment on above: Performed By: #### L SHCG #### [place] [address] Lymphocytes (Bld) [#/Vol] 1.53 thou/cmm Normal 1.50-3.65 [facility] Comment on above: Performed By: #### L SHCG #### [facility] [address] [place], [place] [address] Lymphocytes/100 WBC (Bld) 16.1 % Normal [facility] Comment on above: Performed By: #### L SHCG #### [facility] [address] [place] [address] MCH (RBC) [Entitic mass] 27.7 pg Normal 27.0-31.0 [facility] Comment on above: Performed By: #### L SHCG #### [facility] [address] [place] [address] MCHC (RBC) [Mass/Vol] 34.7 % Normal 32.0-36.0 [facility] Comment on above: Performed By: #### L SHCG #### [facility] [address] [place] [address] MCV (RBC) [Entitic vol] 80.0 fL Low 81.0-99.0 [facility] Comment on above: Performed By: #### L SHCG #### [place] [address] Monocytes/100 WBC (Bld) 4.7 % Normal [facility] Comment on above: Performed By: #### L SHCG #### [place] [address] Platelet mean volume (Bld) [Entitic vol] 9.9 fL Normal 7.1-10.5 [facility] Comment on above: Performed By: #### L SHCG #### [facility] [address] [place], [place] [address] Platelets (Bld) [#/Vol] 209 thou/cmm Normal 150-400 [facility] Comment on above: Performed By: #### L SHCG #### [place] [address] RBC (Bld) [#/Vol] 6.24 mil/cmm High 4.20-5.40 [facility] Comment on above: Performed By: #### L SHCG #### [facility] [address] [place] [id number] Seg Neutrophil 78.0 % Normal [facility] Comment on above: Performed By: #### L SHCG #### [facility] [address] [place], [place] [address] WBC (Bld) [#/Vol] 9.5 thou/cmm Normal 4.8-10.8 [facility] Comment on above: Performed By: #### L SHCG #### [facility] [address] [place] [phone] Ketoneson 07-20-2018 Ketones Ql (U) Negative Normal Negative [facility] Comment on above: Performed By: #### L SHCG #### [facility] [address] [place] [address] MDRD eGFRon 07-20-2018 GFR/1.73 sq M predicted among non-blacks MDRD (S/P/Bld) [Vol rate/Area] mL/min/{1.73_m2} Normal >60mL/min/ 1.73m2 [facility] Comment on above: Result Comment: If t he patient is , multiply the result by 1.210. Performed By: #### L SHCG #### [facility] [address] [place] [id number] NURSING PROGon 07-20-2018 Protein mass conc HNO ID: [id number] Author: Dayanara (Rn) CHAYITO Alexander Service: (none) Author Type: Registered Nurse Type: Nursing Progress Note Filed: 07/20/2018 5:58 PM Note Text: Nursing Progress Note Patient Name: Trenton Jackson Patient [place] [facility] [id number] Daily Note: 1550 Patient arrived to unit [...] by: Dayanara Alexander RN Normal [facility] Renal Function Panelon 07-20 Albumin mass conc 3.7 g/dL Low 3.9-4.9 [facility] Comment on above: Performed By: #### R FP ####[facility] [address] [place] [address] Anion gap molar conc 8 mmol/L Low 9-18 [facility] Comment on above: Performed By: #### R FP ####[place] [address] Calcium mass conc 8.7 mg/dL Normal 8.5-10.2 [facility] Comment on above: Performed By: #### R FP ####[facility] [address] [place] [address] Chloride molar conc 100 mmol/L Normal 97-105 [facility] Comment on above: Performed By: #### R FP ####[place] [address] CO2 molar conc 25 mmol/L Normal 22-30 [facility] Comment on above: Performed By: #### R FP ####[facility] [address] [place] [address] Creatinine mass conc 0.50 mg/dL Low 0.58-0.96 [facility] Comment on above: Performed By: #### R FP ####[facility] [address] [place] [address] eGFR- Amer. >60 Normal [facility] Comment on above: Performed By: #### R FP ####[facility] [address] [place] [address] GFR/1.73 sq M predicted among non-blacks MDRD vol rate/area (S/P/Bld) mL/min/{1.73_m2} Normal [facility] Comment on above: Result Comment: eGFR (Estimated [...] Performed By: #### R FP ####[facility] [address] [place] [address] Glucose mass conc 247 mg/dL High 74-99 [facility] Comment on above: Result Comment: The [place] Diabetes Association (ADA) provides guidance for cutoff [...] Standards of Medical Care in Diabetes 2016, [place] Diabetes Association. Diabetes Care. 2016.39(Suppl 1). Performed By: #### R FP ####[facility] Cheporbwra5459 [address] Phosphate mass conc 2.9 mg/dL Normal 2.7-4.8 [facility] Comment on above: Performed By: #### R FP ####[facility] Wrhuknsdgu2148 [address] Potassium molar conc 4.2 mmol/L Normal 3.5-4.9 [facility] Comment on above: Performed By: #### R FP ####[facility] [address] [place] [address] Result Comment: Test ing performed on an [place] i-STAT. Performed By: #### L SHCG #### [facility] [address] [place] [address] Sodium molar conc 133 mmol/L Low 136-144 [facility] Comment on above: Performed By: #### R FP ####[facility] [address] [place] [phone] Urea nitrogen mass conc 5 mg/dL Low 7-21 M [facility] Comment on above: Performed By: #### R FP ####[facility] Ioetpmwtqn0980 [address]721[address] Troponin Ion 07-20-2018 Troponin I.cardiac [Mass/Vol] ng/mL Normal <=0.07 [facility] Comment on above: Performed By: #### L SHCG #### [facility] [address] [place], [place] [address] Troponin Ton 07-20-2018 Troponin T.cardiac mass conc ug/L Normal 0.000-0.02 9 [facility] Comment on above: Performed By: #### T NT ####[facility] [address] [place] [phone] CT ABDOMEN AND PELVIS WITH C ONTRASTon 06-26-2018 CT ABDOMEN AND PELVIS WITH CONTRAST Performed at [facility] APPROVED BY: Nixon Cortez MD EXAM TITLE: [...] Multiple chronic findings as detailed above. Normal [facility] Comprehensive Panelon 2018 Albumin [Mass/Vol] 3.9 g/dL Normal 3.4-5.0 [facility] Comment on above: Performed By: #### L ACET #### [place] [address] ALP [Catalytic activity/Vol] 118 U/L High 46-116 [facility] Comment on above: Performed By: #### L ACET #### [place] [address] ALT-SGPT Blood 18 U/L Normal 14-63 [facility] Comment on above: Performed By: #### L ACET #### [address] [address] Anion gap [Moles/Vol] 18 mmol/L Normal 8-20 [facility] Comment on above: Performed By: #### L ACET #### [facility] [address] [place], [place] [address] AST-SGOT Blood 19 U/L Normal 15-37 [facility] Comment on above: Performed By: #### L ACET #### [facility] [address] [place], [place] [address] Bilirubin Ql (U) 1.5 mg/dL High 0.2-1.0 [facility] Comment on above: Performed By: #### L ACET #### [facility] [address] [place] [address] Calcium [Mass/Vol] 9.4 mg/dL Normal 8.5-10.1 [facility] Comment on above: Performed By: #### L ACET #### [facility] [address] [place] [address] Chloride [Moles/Vol] 93 mmol/L Low 98-107 [facility] Comment on above: Performed By: #### L ACET #### [facility] [address] [place] [address] CO2 Blood 25 mEq/L Normal 21-32 [facility] Comment on above: Performed By: #### L ACET #### [facility] [address] [place] [address] Creatinine [Mass/Vol] 0.64 mg/dL Normal 0.51-0.95 [facility] Comment on above: Performed By: #### L ACET #### [facility] [address] [place], [place] [address] Glucose [Mass/Vol] 443 mg/dL Critically high 70-99 [facility] Comment on above: Performed By: #### L ACET #### [facility] [address] [place], [place] [address] Potassium [Moles/Vol] 4.0 mmol/L Normal 3.5-5.1 [facility] Comment on above: Performed By: #### L ACET #### [place] [address] Protein [Mass/Vol] 8.0 g/dL Normal 6.4-8.2 [facility] Comment on above: Performed By: #### L ACET #### [facility] [address] [place] [address] Sodium [Moles/Vol] 132 mmol/L Low 136-145 [facility] Comment on above: Performed By: #### L ACET #### [facility] [address] [place] [address] Urea nitrogen [Mass/Vol] 8 mg/dL Normal 7-25 [facility] Comment on above: Performed By: #### L ACET #### [facility] [address] [place] [address] Urea nitrogen/Creatinine [Mass ratio] 13 mg/mg Normal 10-20 [facility] Comment on above: Performed By: #### L ACET #### [place] [address] Hemogram/Manual Diffon 06-26 Abs. Baso 0.00 thou/cmm Normal 0.00-0.08 [facility] Comment on above: Performed By: #### L ACET #### [place] [address] Abs. Eosin 0.00 thou/cmm Normal 0.00-0.41 [facility] Comment on above: Performed By: #### L ACET #### [place] [address] Abs. Lymph 2.58 thou/cmm Normal 1.50-3.65 [facility] Comment on above: Performed By: #### L ACET #### [place] [address] Abs. Amador 0.78 thou/cmm Normal 0.20-1.00 [facility] Comment on above: Performed By: #### L ACET #### [place] [address] Abs. Neut (ANC) 7.84 thou/cmm High 3.00-5.67 [facility] Comment on above: Performed By: #### L ACET #### [place] [address] Basophil 0.0 % Normal [facility] Comment on above: Performed By: #### L ACET #### [facility] [address] [place] [address] Eosinophil 0.0 % Normal [facility] Comment on above: Performed By: #### L ACET #### [facility] [address] [place] [address] Lymphocyte 23.0 % Normal [facility] Comment on above: Performed By: #### L ACET #### [facility] [address] [place] [address] Monocyte 7.0 % Normal [facility] Comment on above: Performed By: #### L ACET #### [facility] [address] [place] [address] Platelets (Bld) [#/Vol] Normal Normal [facility] Comment on above: Performed By: #### L ACET #### [place] [address] RBC morphology finding Nom (Bld) Normal Normal [facility] Comment on above: Performed By: #### L ACET #### [place] [address] Seg Neutrophil 70.0 % Normal [facility] Comment on above: Performed By: #### L ACET #### [place] [address] Diff Type Manual Diff Normal [facility] Comment on above: Performed By: #### L ACET #### [place] [address] Erythrocyte distribution width (RBC) [Ratio] 13.1 % Normal 11.5-15.9 [facility] Comment on above: Performed By: #### L ACET #### [place] [address] Hematocrit (Bld) [Volume fraction] 49.0 % High 37.0-47.0 [facility] Comment on above: Performed By: #### L ACET #### [place] [address] Hemoglobin (Bld) [Mass/Vol] 16.9 g/dL High 12.0-16.0 [facility] Comment on above: Performed By: #### L ACET #### [facility] [address] [place] [address] MCH (RBC) [Entitic mass] 27.6 pg Normal 27.0-31.0 [facility] Comment on above: Performed By: #### L ACET #### [facility] [address] [place], [place] [address] MCHC (RBC) [Mass/Vol] 34.5 % Normal 32.0-36.0 [facility] Comment on above: Performed By: #### L ACET #### [facility] [address] [place] [address] MCV (RBC) [Entitic vol] 79.9 fl Low 81.0-99.0 [facility] Comment on above: Performed By: #### L ACET #### [facility] [address] [place] [address] Platelet mean volume (Bld) [Entitic vol] 9.9 fl Normal 7.1-10.5 [facility] Comment on above: Performed By: #### L ACET #### [facility] [address] [place] [address] Platelets (Bld) [#/Vol] 276 thou/cmm Normal 150-400 [facility] Comment on above: Performed By: #### L ACET #### [facility] [address] [place] [address] RBC (Bld) [#/Vol] 6.13 mil/cmm High 4.20-5.40 [facility] Comment on above: Performed By: #### L ACET #### [facility] [address] [place] [address] WBC (Bld) [#/Vol] 11.2 thou/cmm High 4.8-10.8 [facility] Comment on above: Performed By: #### L ACET #### [facility] [address] [place] [address] Ketoneson 06-26-2018 Ketones Ql (U) Negative Normal Negative [facility] Comment on above: Performed By: #### L SHCG #### [facility] [address] [place] [address] Lipase Bloodon 06-26-2018 Lipase Blood 161 U/L Normal 73-393 [facility] Comment on above: Performed By: #### L ACET #### [place] [address] MDRD eGFRon 06-26-2018 GFR/1.73 sq M predicted among non-blacks MDRD (S/P/Bld) [Vol rate/Area] mL/min/{1.73_m2} Normal >60mL/min/ 1.73m2 [facility] Comment on above: Result Comment: If t he patient is , multiply the result by 1.210. Performed By: #### L ACET #### [place] [address] Macroscopic Urinalysison Appearance (U) CLEAR Normal [facility] Comment on above: Performed By: #### L ACET #### [place] [address] Bilirubin Urine Negative Normal Negative [facility] Comment on above: Performed By: #### L ACET #### [place] [address] Color (U) YELLOW Normal [facility] Comment on above: Performed By: #### L ACET #### [place] [address] Glucose Ql (U) 3+ Abnormal Negative [facility] Comment on above: Performed By: #### L ACET #### [place] [address] Hemoglobin,Urine Negative Normal Negative [facility] Comment on above: Performed By: #### L ACET #### [place] [address] Ketone Urine Negative Normal Negative [facility] Comment on above: Performed By: #### L ACET #### [place] [address] Leukocytes Esterase Negative Normal Negative [facility] Comment on above: Performed By: #### L ACET #### [place] [address] Nitrites Urine Negative Normal Negative [facility] Comment on above: Performed By: #### L ACET #### [facility] [address] [place] [address] pH (U) 6.0 [pH] Normal 5.0-8.0 [facility] Comment on above: Performed By: #### L ACET #### [facility] [address] [place] [address] Protein (U) [Mass/Vol] Negative Normal Negative [facility] Comment on above: Performed By: #### L ACET #### [facility] [address] [place] [address] Specific [place], Ur 1.015 Normal 1.005-1 .03 0 [facility] Comment on above: Performed By: #### L ACET #### [facility] [address] [place] [address] Urobilinogen,Ur 0.2 EU/dL Normal 0.0-1.0 [facility] Comment on above: Performed By: #### L ACET #### [facility] [address] [place] [address] CASE MANAGEMon 06-12-2018 CASE MANAGEM HNO ID: [id number] Author: Rey Markham (Sw) Service: Care Management Author Type: Director Of Billing Type: Care Mgt Progress Note Filed: 06/12/2018 [...] discharge planning needs arise. SIGNATURE: Rey Markham TRIMMING CUTTER MACHINE, TRAFFIC SUPERVISOR, [facility] PATIENT NAME: Trenton Jackson DATE: June 12, 2018 TIME: 3:21 PM PAGER/CONTACT #: Normal [facility] CBCon 06-12-2018 Erythrocyte distribution width Ratio (RBC) 13.1 % Normal 11.5-15.0 [facility] Comment on above: Performed By: #### C BC, CMP, MG1 ####[facility] [address] [place] [address] Hematocrit Volume Fraction (Bld) 39.0 % Normal 36.0-46.0 [facility] Comment on above: Performed By: #### C BC, CMP, MG1 ####[facility] [address] [place] [address] Hemoglobin mass conc (Bld) 13.0 g/dL Normal 11.5-15.5 [facility] Comment on above: Performed By: #### C BC, CMP, MG1 ####[facility] [address] [place] [address] MCH Entitic mass (RBC) 27.5 pG Normal 26.0-34.0 [facility] Comment on above: Performed By: #### C BC, CMP, MG1 ####[facility] [address] [place] [address] MCHC mass conc (RBC) 33.3 g/dL Normal 30.5-36.0 [facility] Comment on above: Performed By: #### C BC, CMP, MG1 ####[facility] [address] [place] [address] MCV Entitic volume (RBC) 82.5 fL Normal 80.0-100.0 [facility] Comment on above: Performed By: #### C BC, CMP, MG1 ####[facility] [address] [place] [address] Platelet mean volume Entitic volume (Bld) 9.6 fL Normal 9.0-12.7 [facility] Comment on above: Performed By: #### C BC, CMP, MG1 ####[facility] [address] [place] [address] Platelets #/vol (Bld) 202 10*3/uL Normal 150-400 [facility] Comment on above: Performed By: #### C BC, CMP, MG1 ####[facility] [address]67[address] [place] [address] RBC #/vol (Bld) 4.73 10*6/uL Normal 3.90-5.20 [facility] Comment on above: Performed By: #### C BC, CMP, MG1 ####[facility] [address]z8160 [address] WBC #/vol (Bld) 9.75 10*3/uL Normal 3.70-11.00 [facility] Comment on above: Performed By: #### C BC, CMP, MG1 ####[facility] [address] [place] [phone] CONSULT PROGon 06-12-2018 Protein mass conc HNO ID: [id number] Author: Jasvir Kumar Service: Gastroenterology Author Type: [...] ~6 weeks. 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 Patient seen [...] colon Bx: unavailable ? SIGNATURE: Prudence Edwards, NUTRITIONAL SERVICES HOST DATE: June 12, 2018 TIME: 10:40 AM Normal [facility] Comp Metabolic Panelon 06-12 Albumin mass conc 3.0 g/dL Low 3.9-4.9 [facility] Comment on above: Performed By: #### C BC, CMP, MG1 ####[facility] [address] [place] [address] ALP enzyme act/vol 80 U/L Normal 34-123 [facility] Comment on above: Performed By: #### C BC, CMP, MG1 ####[facility] [address] [place] [address] ALT enzyme act/vol 17 U/L Normal 7-38 [facility] Comment on above: Performed By: #### C BC, CMP, MG1 ####[facility] [address] [place] [address] Anion gap molar conc 8 mmol/L Low 9-18 [facility] Comment on above: Performed By: #### C BC, CMP, MG1 ####[facility] [address] [place] [address] AST enzyme act/vol 25 U/L Normal 13-35 [facility] Comment on above: Performed By: #### C BC, CMP, MG1 ####[facility] [address] [place] [address] Bilirubin mass conc 0.5 mg/dL Normal 0.2-1.3 [facility] Comment on above: Performed By: #### C BC, CMP, MG1 ####[facility] [address] [place] [address] Calcium mass conc 9.0 mg/dL Normal 8.5-10.2 [facility] Comment on above: Performed By: #### C BC, CMP, MG1 ####[facility] [address] [place] [address] Chloride molar conc 101 mmol/L Normal 97-105 [facility] Comment on above: Performed By: #### C BC, CMP, MG1 ####[facility] [address] [place] [address] CO2 molar conc 28 mmol/L Normal 22-30 [facility] Comment on above: Performed By: #### C BC, CMP, MG1 ####[facility] [address] [place] [phone] Creatinine mass conc 0.64 mg/dL Normal 0.58-0.96 [facility] Comment on above: Performed By: #### C DELIA WILSON, MG1 ####[facility] [address] [place] [address] eGFR- Amer. >60 Normal [facility] Comment on above: Performed By: #### C DELIA WILSON, MG1 ####[facility] Z[address]iewymenl2724 [address] GFR/1.73 sq M predicted among non-blacks MDRD vol rate/area (S/P/Bld) mL/min/{1.73_m2} Normal [facility] Comment on above: Result Comment: eGFR (Estimated [...] #### C DELIA WILSON, MG1 ####[facility] Wbcblgbche9779 [address] Glucose mass conc 162 mg/dL High 74-99 [facility] Comment on above: Result Comment: The [place] Diabetes Association (ADA) provides guidance for cutoff [...] Standards of Medical Care in Diabetes 2016, [place] Diabetes Association. Diabetes Care. 2016.39(Suppl 1). Performed By: #### C KATIE CMP, MG1 ####[facility] [address] [place] [address] Potassium molar conc 4.2 mmol/L Normal 3.7-5.1 [facility] Comment on above: Performed By: #### C BC CMP, MG1 ####[facility] [address]xd[address] [place] [address] Protein mass conc 5.6 g/dL Low 6.3-8.0 [facility] Comment on above: Performed By: #### C KATIE CMP, MG1 ####[facility] [address] [place] [address] Sodium molar conc 137 mmol/L Normal 136-144 [facility] Comment on above: Performed By: #### C KATIE CMP, MG1 ####[facility] [address] [place] [address] Urea nitrogen mass conc 5 mg/dL Low 7-21 M [facility] Comment on above: Performed By: #### C KATIE CMP, MG1 ####[facility] [address] [place] [address] Magnesiumon 06-12-2018 Magnesium mass conc 1.6 mg/dL Low 1.7-2.3 [facility] Comment on above: Performed By: #### C KATIE CMP, MG1 ####[facility] [address] [place] [address] NURSING PROGon 06-12-2018 Protein mass conc HNO ID: [id number] Author: Bina (Rn) CHAIYTO Montiel Service: (none) Author Type: Registered Nurse Type: Nursing Progress Note Filed: 06/12/2018 6:50 AM Note Text: Nursing Progress Note Patient Name: Trenton Jackson Patient Location: [facility]-0223/[id number] Daily Note: Paged the hospital list regarding patient's magnesium level this AM. This note was completed by: Bina Montiel RN Normal [facility] CBCon 06-11-2018 Erythrocyte distribution width Ratio (RBC) 13.4 % Normal 11.5-15.0 [facility] Comment on above: Performed By: #### C BC CMP, MG1 ####[facility] [address] [place] [address] Hematocrit Volume Fraction (Bld) 45.8 % Normal 36.0-46.0 [facility] Comment on above: Performed By: #### C BC CMP, MG1 ####[facility] [address] [place] [address] Hemoglobin mass conc (Bld) 15.4 g/dL Normal 11.5-15.5 [facility] Comment on above: Performed By: #### C KATIE CMP, MG1 ####[facility] [address] [place] [address] MCH Entitic mass (RBC) 27.5 pG Normal 26.0-34.0 [facility] Comment on above: Performed By: #### C BC CMP, MG1 ####[facility] [address] [place] [address] MCHC mass conc (RBC) 33.6 g/dL Normal 30.5-36.0 [facility] Comment on above: Performed By: #### C BC CMP, MG1 ####[facility] [address]94 [place] [address] MCV Entitic volume (RBC) 81.8 fL Normal 80.0-100.0 [facility] Comment on above: Performed By: #### C BC CMP, MG1 ####[facility] [address]xt1135 [place] [address] Platelet mean volume Entitic volume (Bld) 10.0 fL Normal 9.0-12.7 [facility] Comment on above: Performed By: #### C BC CMP, MG1 ####[facility] [address] [place] [id number] Platelets #/vol (Bld) 260 10*3/uL Normal 150-400 [facility] Comment on above: Performed By: #### Gideon BC CMP, MG1 ####[facility] [address]0417 [place] [phone] RBC #/vol (Bld) 5.60 10*6/uL High 3.90-5.20 [facility] Comment on above: Performed By: #### C BC, CMP, MG1 ####[facility] [address]8307 [place] [phone] WBC #/vol (Bld) 13.52 10*3/uL High 3.70-11.00 [facility] Comment on above: Performed By: #### C BC, CMP, MG1 ####[facility] [address] [place] [phone] CONSULT PROGon 06-11-2018 Protein mass conc HNO ID: [id number] Author: Jasvir Kumar Service: Gastroenterology Author Type: [...] descending colon Bx: unavailable SIGNATURE: Prudence Edwards, NUTRITIONAL SERVICES HOST DATE: June 11, 2018 TIME: 10:11 AM Normal [facility] Comp Metabolic Panelon 06-11 Albumin mass conc 3.4 g/dL Low 3.9-4.9 [facility] Comment on above: Performed By: #### C BC, CMP, MG1 ####[facility] [address] [place] [address] ALP enzyme act/vol 93 U/L Normal 34-123 [facility] Comment on above: Performed By: #### C BC, CMP, MG1 ####[facility] [address] [place] [address] ALT enzyme act/vol 18 U/L Normal 7-38 [facility] Comment on above: Performed By: #### C BC, CMP, MG1 ####[facility] [facility] [address] [place] [address] Anion gap molar conc 11 mmol/L Normal 9-18 [facility] Comment on above: Performed By: #### C BC, CMP, MG1 ####[facility] [address] [place] [address] AST enzyme act/vol 31 U/L Normal 13-35 [facility] Comment on above: Performed By: #### C BC, CMP, MG1 ####[facility] [address] [place] [address] Bilirubin mass conc 0.8 mg/dL Normal 0.2-1.3 [facility] Comment on above: Performed By: #### C BC, CMP, MG1 ####[facility] [address] [place] [address] Calcium mass conc 9.0 mg/dL Normal 8.5-10.2 [facility] Comment on above: Performed By: #### C BC, CMP, MG1 ####[facility] [address] [place] [address] Chloride molar conc 101 mmol/L Normal 97-105 [facility] Comment on above: Performed By: #### C BC, CMP, MG1 ####[facility] [address] [place] [address] CO2 molar conc 25 mmol/L Normal 22-30 [facility] Comment on above: Performed By: #### C BC, CMP, MG1 ####[facility] [address] [place] [address] Creatinine mass conc 0.61 mg/dL Normal 0.58-0.96 [facility] Comment on above: Performed By: #### C BC, CMP, MG1 ####[facility] [address] [place] [address] eGFR- Amer. >60 Normal [facility] Comment on above: Performed By: #### C BC CMP, MG1 ####[facility] [address] [place] [address] GFR/1.73 sq M predicted among non-blacks MDRD vol rate/area (S/P/Bld) mL/min/{1.73_m2} Normal [facility] Comment on above: Result Comment: eGFR (Estimated [...] #### C BC, CMP, MG1 ####[facility] [address] [place] [address] Glucose mass conc 123 mg/dL High 74-99 [facility] Comment on above: Result Comment: [place] Diabetes Association (ADA) provides guidance for cutoff [...] Standards of Medical Care in Diabetes 2016, [place] Diabetes Association. Diabetes Care. 2016.39(Suppl 1). Performed By: #### C BC CMP, MG1 ####[facility] [address] [place] [address] Potassium molar conc 3.9 mmol/L Normal 3.7-5.1 [facility] Comment on above: Performed By: #### C BC CMP, MG1 ####[facility] [address] [place] [address] Protein mass conc 6.5 g/dL Normal 6.3-8.0 [facility] Comment on above: Performed By: #### C BC CMP, MG1 ####[facility] [address] [place] [address] Sodium molar conc 137 mmol/L Normal 136-144 [facility] Comment on above: Performed By: #### C BC, CMP, MG1 ####[facility] [address] [place] [address] Urea nitrogen mass conc 5 mg/dL Low 7-21 M [facility] Comment on above: Performed By: #### C BC CMP, MG1 ####[facility] [address] [place] [address] Magnesiumon 06-11-2018 Magnesium mass conc 1.8 mg/dL Normal 1.7-2.3 [facility] Comment on above: Performed By: #### C BC, CMP, MG1 ####[facility] [address] [place] [address] PROGRESSon 06-11-2018 Protein mass conc HNO ID: [id number] Author: Fredo Morrow Service: Hospital Medicine Author Type: Physician Type: Progress Notes Filed: 06/11/2018 1:58 PM Note Text: SERVICE DATE: 06/11/2018 SERVICE TIME: 1:58 PM HOSPITAL MEDICINE PROGRESS NOTE NIGHT AND WEEKEND COVERAGE: Nights: Please contact pager [phone]. HPI Patient is a 47 year old [...] with long-term current use of insulin ([facility]LY [facility]) 06/08/2018 - Present Current Assessment AND Plan [...] Chronic systolic CHF (congestive heart failure) (FORMERLY [facility]) 06/08/2018 - Present Current Assessment AND Plan [...] 1615 vte non-pharmacologic prophylaxis - none indicated (nc,or) 06/08/18 1615 activity - mobilize patient ([place]) VTE Prophylaxis: VTE prophylaxis appropriate Plan of care discussed with: Patient SIGNATURE: Fredo Morrow MD PATIENT NAME: Trenton Jackson DATE: June 11, 2018 TIME: 1:58 PM PAGER/CONTACT #: [phone] Normal [facility] CBCon 06-10-2018 Erythrocyte distribution width Ratio (RBC) 13.1 % Normal 11.5-15.0 [facility] Comment on above: Performed By: #### C BC, CMP, MG1 ####[facility] [address] [place] [phone] Hematocrit Volume Fraction (Bld) 41.1 % Normal 36.0-46.0 [facility] Comment on above: Performed By: #### C BC, CMP, MG1 ####[facility] [address] Hemoglobin mass conc (Bld) 13.4 g/dL Normal 11.5-15.5 [facility] Comment on above: Performed By: #### C BC, CMP, MG1 ####[facility] V[address]om[address]bfr4655 [address] MCH Entitic mass (RBC) 26.9 pG Normal 26.0-34.0 [facility] Comment on above: Performed By: #### C BC, CMP, MG1 ####[facility] [address] [place] [address] MCHC mass conc (RBC) 32.6 g/dL Normal 30.5-36.0 [facility] Comment on above: Performed By: #### C BC, CMP, MG1 ####[facility] N[address]4 [place] [address] MCV Entitic volume (RBC) 82.4 fL Normal 80.0-100.0 [facility] Comment on above: Performed By: #### C BC, CMP, MG1 ####[facility] [address] [place] [address] Platelet mean volume Entitic volume (Bld) 10.0 fL Normal 9.0-12.7 [facility] Comment on above: Performed By: #### C BC, CMP, MG1 ####[facility] Btcs[address]xlqv5573 [address] Platelets #/vol (Bld) 202 10*3/uL Normal 150-400 [facility] Comment on above: Performed By: #### C BC, CMP, MG1 ####[facility] [address] [place] [address] RBC #/vol (Bld) 4.99 10*6/uL Normal 3.90-5.20 [facility] Comment on above: Performed By: #### C BC, CMP, MG1 ####[facility] [address] [place] [address] WBC #/vol (Bld) 10.93 10*3/uL Normal 3.70-11.00 [facility] Comment on above: Performed By: #### C BC, CMP, MG1 ####[facility] [address] [place] [phone] CONSULT PROGon 06-10-2018 Protein mass conc HNO ID: [id number] Author: Jasvir Kumar Service: Gastroenterology Author Type: [...] never undergone endoscopic evaluation SIGNATURE: Griselda Chaparro APRN.PLUNGER MACHINE OPERATOR DATE: June 10, 2018 TIME: 12:53 PM Normal [facility] Comp Metabolic Panelon 06-10 Albumin mass conc 3.0 g/dL Low 3.9-4.9 [facility] Comment on above: Performed By: #### C BC, CMP, MG1 ####[facility] [address] [place] [address] ALP enzyme act/vol 76 U/L Normal 34-123 [facility] Comment on above: Performed By: #### C BC, CMP, MG1 ####[facility] X[address] [place] [address] ALT enzyme act/vol 11 U/L Normal 7-38 [facility] Comment on above: Performed By: #### C BC, CMP, MG1 ####[facility] [address] [place] [address] Anion gap molar conc 8 mmol/L Low 9-18 [facility] Comment on above: Performed By: #### C BC, CMP, MG1 ####[facility] [address] [place] [address] AST enzyme act/vol 16 U/L Normal 13-35 [facility] Comment on above: Performed By: #### C BC, CMP, MG1 ####[facility] [address] [place] [address] Bilirubin mass conc 0.6 mg/dL Normal 0.2-1.3 [facility] Comment on above: Performed By: #### C BC, CMP, MG1 ####[facility] [address] [place] [address] Calcium mass conc 8.8 mg/dL Normal 8.5-10.2 [facility] Comment on above: Performed By: #### C BC, CMP, MG1 ####[facility] [address] [place] [address] Chloride molar conc 102 mmol/L Normal 97-105 [facility] Comment on above: Performed By: #### C BC, CMP, MG1 ####[facility] [address] [place] [address] CO2 molar conc 28 mmol/L Normal 22-30 [facility] Comment on above: Performed By: #### C BC, CMP, MG1 ####[facility] [address] [place] [phone] Creatinine mass conc 0.62 mg/dL Normal 0.58-0.96 [facility] Comment on above: Performed By: #### C DELIA WILSON, MG1 ####[facility] Z[address]pul7299 [address]721-5160 eGFR- Amer. >60 Normal [facility] Comment on above: Performed By: #### C DELIA WILSON, MG1 ####[facility] Efwywxbluh7372 [address] GFR/1.73 sq M predicted among non-blacks MDRD vol rate/area (S/P/Bld) mL/min/{1.73_m2} Normal [facility] Comment on above: Result Comment: eGFR (Estimated [...] #### C DELIA WILSON, MG1 ####[facility] [address]ysnny9767 [address] Glucose mass conc 142 mg/dL High 74-99 [facility] Comment on above: Result Comment: The [place] Diabetes Association (ADA) provides guidance for cutoff [...] Standards of Medical Care in Diabetes 2016, [place] Diabetes Association. Diabetes Care. 2016.39(Suppl 1). Performed By: #### C BC, CMP, MG1 ####[facility] [address] [place] [address] Potassium molar conc 3.4 mmol/L Low 3.7-5.1 [facility] Comment on above: Performed By: #### C BC, CMP, MG1 ####[facility] [address] [place] [address] Protein mass conc 5.5 g/dL Low 6.3-8.0 [facility] Comment on above: Performed By: #### C BC, CMP, MG1 ####[facility] [address] [place] [address] Sodium molar conc 138 mmol/L Normal 136-144 [facility] Comment on above: Performed By: #### C BC, CMP, MG1 ####[facility] [address] [place] [address] Urea nitrogen mass conc 6 mg/dL Low 7-21 M [facility] Comment on above: Performed By: #### C BC, CMP, MG1 ####[facility] [address] [place] [address] Magnesiumon 06-10-2018 Magnesium mass conc 1.8 mg/dL Normal 1.7-2.3 [facility] Comment on above: Performed By: #### C BC, CMP, MG1 ####[facility] [address] [place] [address] PROGRESSon 06-10-2018 Protein mass conc HNO ID: [id number] Author: Fredo Morrow Service: Hospital Medicine Author Type: Physician Type: Progress Notes Filed: 06/10/2018 4:22 PM Note Text: SERVICE DATE: 06/10/2018 SERVICE TIME: 4:22 PM HOSPITAL MEDICINE PROGRESS NOTE NIGHT AND WEEKEND COVERAGE: Nights: Please contact pager [phone]. HPI Patient is a 47 year old [...] with long-term current use of insulin ([facility]LY [facility]) 06/08/2018 - Present Current Assessment AND Plan [...] Chronic systolic CHF (congestive heart failure) (FORM[facility]LY [facility]) 06/08/2018 - Present Current Assessment AND Plan [...] ([place]) 06/08/18 1615 activity - mobilize patient ([place]) VTE Prophylaxis: VTE prophylaxis appropriate Plan of care discussed with: Patient SIGNATURE: Fredo Morrow MD PATIENT NAME: Trenton Jackson DATE: June 10, 2018 TIME: 4:22 PM PAGER/CONTACT #: [phone] [facility] CASE MGT INIT Ana 2018 CASE MGT INIT GAVIN HNO ID: [id number] Author: Donna AgudeloRn) CHAYITO Gupta Service: Case Management Author Type: Registered Nurse Type: Care Mgt Initial Assessment Filed: 06/09/2018 4:47 PM Note Text: CARE MANAGEMENT: ASSESSMENT AND DISCHARGE PLAN SERVICE DATE: 06/09/2018 SERVICE TIME: 4:45 PM PRIMARY CARE PHYSICIAN: Uziel Conteh MD - Confirmed with the patient ADMISSION STATUS: Observation Needs Prior to Discharge: To Be Determined MEDICAL: Patient/Short Order Cook Stated Goals: To have reduction in symptoms To return home to life as it was Health Insurance: [facility] MEDICAID None Health Issues Impacting Discharge Plan: - Diabetes, HTN Last Admission Date: Previous admit date: 12/05/2017 Is this Within the Past 30 days? No Advance Directive: Current Advance Directive: None Adhesive Bandage Making Operator Attempted to Assist with AD Completion: [...] Glucometer Has the Patient Been in a Shelter Facility in the Past 30 days? No SOCIAL: Living Arrangement: Home Lives With: Spouse Financial Resources: N/A Primary Contact: Extended Emergency Contact Information Primary Emergency Contact: Curry Jackson Jr Address: [address] [place] [address] [facility] Mobile Relation: Spouse Secondary Emergency Contact: Rebecca Dueñas Address: [place] [address] [facility] Relation: Mother Supportive: Yes Other Important [...] 0 I feel financially burdened by my [id number] expenses for my prescription medication: Disagree completely [...] patient. 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 Lives with her . CM department will continue to follow for DC needs. SIGNATURE: Donna Gupta PATIENT NAME: Trenton Jackson DATE: June 09, 2018 TIME: 4:45 PM PAGER/CONTACT #: [phone] Normal [facility] CBCon 06-09-2018 Erythrocyte distribution width Ratio (RBC) 13.0 % Normal 11.5-15.0 [facility] Comment on above: Performed By: #### H STNT #### [facility] Laboratory [address] [facility] [phone] Hematocrit Volume Fraction (Bld) 42.5 % Normal 36.0-46.0 [facility] Comment on above: Performed By: #### H STNT #### [facility] [address] [facility] [phone] Hemoglobin mass conc (Bld) 14.0 g/dL Normal 11.5-15.5 [facility] Comment on above: Performed By: #### H STNT #### [facility] Laboratory [address] [place] [address] MCH Entitic mass (RBC) 27.0 pG Normal 26.0-34.0 [facility] Comment on above: Performed By: #### H STNT #### [facility] Laboratory [address] [place] [address] MCHC mass conc (RBC) 32.9 g/dL Normal 30.5-36.0 [facility] Comment on above: Performed By: #### H STNT #### [facility] Laboratory [address] [place] [address] MCV Entitic volume (RBC) 82.0 fL Normal 80.0-100.0 [facility] Comment on above: Performed By: #### H STNT #### [facility] Laboratory [address] [place] [address] Platelet mean volume Entitic volume (Bld) 9.6 fL Normal 9.0-12.7 [facility] Comment on above: Performed By: #### H STNT #### [facility] [address] [place] [address] Platelets #/vol (Bld) 217 10*3/uL Normal 150-400 [facility] Comment on above: Performed By: #### H STNT #### [facility] [address] [place] [address] RBC #/vol (Bld) 5.18 10*6/uL Normal 3.90-5.20 [facility] Comment on above: Performed By: #### H STNT #### [facility] Laboratory [address] [place] [address] WBC #/vol (Bld) 8.16 10*3/uL Normal 3.70-11.00 [facility] Comment on above: Performed By: #### H STNT #### [facility] Laboratory [address] [place] [address] CONSULTon 06-09-2018 CONSULT HNO ID: [id number] Author: Jasvir Kumar Service: Gastroenterology Author Type: [...] TIME: 8:21 AM PAGER: Normal [facility] Comp Metabolic Panelon 06-09 Albumin mass conc 3.5 g/dL Low 3.9-4.9 [facility] Comment on above: Performed By: #### C MP ####[facility] [address] [place] [address] ALP enzyme act/vol 83 U/L Normal 34-123 [facility] Comment on above: Performed By: #### C MP ####[facility] [address] [place] [address] ALT enzyme act/vol 12 U/L Normal 7-38 [facility] Comment on above: Performed By: #### C MP ####[facility] [address] [place] [address] Anion gap molar conc 14 mmol/L Normal 9-18 [facility] Comment on above: Performed By: #### C MP ####[place] [address] AST enzyme act/vol 14 U/L Normal 13-35 [facility] Comment on above: Performed By: #### C MP ####[facility] [address] [place] [address] Bilirubin mass conc 0.7 mg/dL Normal 0.2-1.3 [facility] Comment on above: Performed By: #### C MP ####[place] [address] Calcium mass conc 8.6 mg/dL Normal 8.5-10.2 [facility] Comment on above: Performed By: #### C MP ####[facility] [address] [place], [place] [address] Chloride molar conc 98 mmol/L Normal 97-105 [facility] Comment on above: Performed By: #### C MP ####[facility] [address] [place] [address] CO2 molar conc 22 mmol/L Normal 22-30 [facility] Comment on above: Performed By: #### C MP ####[facility] [address] [place] [address] Creatinine mass conc 0.60 mg/dL Normal 0.58-0.96 [facility] Comment on above: Performed By: #### C MP ####[facility] [address] [place] [address] eGFR- Amer. >60 Normal [facility] Comment on above: Performed By: #### C MP ####[facility] [address]pr[address] [place] [address] GFR/1.73 sq M predicted among non-blacks MDRD vol rate/area (S/P/Bld) mL/min/{1.73_m2} Normal [facility] Comment on above: Result Comment: eGFR (Estimated [...] Performed By: #### C MP ####[facility] [address] [place] [address] Glucose mass conc 313 mg/dL High 74-99 [facility] Comment on above: Result Comment: The [place] Diabetes Association (ADA) provides guidance for cutoff [...] Standards of Medical Care in Diabetes 2016, [place] Diabetes Association. Diabetes Care. 2016.39(Suppl 1). Performed By: #### C MP ####[facility] [address] [place] [address] Potassium molar conc 3.6 mmol/L Low 3.7-5.1 [facility] Comment on above: Performed By: #### C MP ####[facility] [address] [place] [address] Protein mass conc 5.6 g/dL Low 6.3-8.0 [facility] Comment on above: Performed By: #### C MP ####[facility] [address] [place] [address] Sodium molar conc 134 mmol/L Low 136-144 [facility] Comment on above: Performed By: #### C MP ####[facility] [address] [place] [address] Urea nitrogen mass conc 5 mg/dL Low 7-21 M [facility] Comment on above: Performed By: #### C MP ####[facility] [address] [place] [address] Magnesiumon 06-09-2018 Magnesium mass conc 1.8 mg/dL Normal 1.7-2.3 [facility] Comment on above: Performed By: #### H STNT #### [facility] Laboratory [address] [place], [place] [phone] PROGRESSon 06-09-2018 Protein mass conc HNO ID: [id number] Author: Lisa Bocanegra Service: Hospital Medicine Author [...] 1615 vte non-pharmacologic prophylaxis - none indicated (nc,oh) 06/08/18 1615 activity - mobilize patient (nc,or) VTE Prophylaxis: VTE prophylaxis appropriate SIGNATURE: Lisa Bocanegra MD PATIENT NAME: Trenton Jackson DATE: June 09, 2018 TIME: 4:55 PM PAGER: [phone] Normal [facility] ABD COMPL WITH UPRIGHT PA CH ESTon 06-08-2018 ABD COMPL WITH UPRIGHT PA CHEST Performed at [facility] APPROVED BY: Jose Elias Cabrera MD EXAM [...] of fecal material throughout the colon. Normal [facility] Comp Metabolic Panelon 06-08 Albumin mass conc 3.5 g/dL Low 3.9-4.9 [facility] Comment on above: Performed By: #### H STNT #### [facility] Laboratory [address] [place] [address] ALP enzyme act/vol 95 U/L Normal 34-123 [facility] Comment on above: Performed By: #### H STNT #### [facility] [address] ALT enzyme act/vol 10 U/L Normal 7-38 [facility] Comment on above: Performed By: #### H STNT #### [facility] [address] [place] [address] Anion gap molar conc 9 mmol/L Normal 9-18 [facility] Comment on above: Performed By: #### H STNT #### [facility] [address] [place] [address] AST enzyme act/vol 14 U/L Normal 13-35 [facility] Comment on above: Performed By: #### H STNT #### [facility] Laboratory [address] [place] [address] Bilirubin mass conc 0.9 mg/dL Normal 0.2-1.3 [facility] Comment on above: Performed By: #### H STNT #### [facility] [address] [place] [address] Calcium mass conc 8.9 mg/dL Normal 8.5-10.2 [facility] Comment on above: Performed By: #### H STNT #### [facility] [address] [place] [address] Chloride molar conc 100 mmol/L Normal 97-105 [facility] Comment on above: Performed By: #### H STNT #### [facility] [address] [place] [address] CO2 molar conc 26 mmol/L Normal 22-30 [facility] Comment on above: Performed By: #### H STNT #### [facility] [address] [place] [address] Creatinine mass conc 0.56 mg/dL Low 0.58-0.96 [facility] Comment on above: Performed By: #### H STNT #### [facility] Laboratory [address] [place] [address] eGFR- Amer. >60 Normal [facility] Comment on above: Performed By: #### H STNT #### [facility] Laboratory [address] [place] [address] GFR/1.73 sq M predicted among non-blacks MDRD vol rate/area (S/P/Bld) mL/min/{1.73_m2} Normal [facility] Comment on above: Result Comment: eGFR (Estimated [...] By: #### H STNT #### [facility] [address] [address] Glucose mass conc 219 mg/dL High 74-99 [facility] Comment on above: Result Comment: The [place] Diabetes Association (ADA) provides guidance for cutoff [...] Standards of Medical Care in Diabetes 2016, [place] Diabetes Association. Diabetes Care. 2016.39(Suppl 1). Performed By: #### H STNT #### [facility] [address] [address] Potassium molar conc 4.0 mmol/L Normal 3.7-5.1 [facility] Comment on above: Performed By: #### H STNT #### [facility] [address] [address] Protein mass conc 5.9 g/dL Low 6.3-8.0 [facility] Comment on above: Performed By: #### H STNT #### [facility] [address] [address] Sodium molar conc 135 mmol/L Low 136-144 [facility] Comment on above: Performed By: #### H STNT #### [facility] [address] [place] [address] Urea nitrogen mass conc 3 mg/dL Low 7-21 M [facility] Comment on above: Performed By: #### H STNT #### [facility] [address] [place] [address] Comprehensive Panelon 2018 ALT-SGPT Blood 20 U/L Normal 14-63 [facility] Comment on above: Performed By: #### L MACU #### [facility] [address] [address] Albumin [Mass/Vol] 3.3 g/dL Low 3.4-5.0 [facility] Comment on above: Performed By: #### L MACU #### [facility] [address] [address] ALP [Catalytic activity/Vol] 111 U/L Normal 46-116 [facility] Comment on above: Performed By: #### L MACU #### [facility] [address] [address] Anion gap [Moles/Vol] 15 mmol/L Normal 8-20 [facility] Comment on above: Performed By: #### L MACU #### [address] [address] AST-SGOT Blood 20 U/L Normal 15-37 [facility] Comment on above: Performed By: #### L MACU #### [facility] [address] [address] Bilirubin Ql (U) 1.1 mg/dL High 0.2-1.0 [facility] Comment on above: Performed By: #### L MACU #### [facility] [address] [address] Calcium [Mass/Vol] 8.9 mg/dL Normal 8.5-10.1 [facility] Comment on above: Performed By: #### L MACU #### [facility] [address] [address] Chloride [Moles/Vol] 97 mmol/L Low 98-107 [facility] Comment on above: Performed By: #### L MACU #### [facility] [address] [address] CO2 Blood 25 mEq/L Normal 21-32 [facility] Comment on above: Performed By: #### L MACU #### [address] [address] Creatinine [Mass/Vol] 0.52 mg/dL Normal 0.51-0.95 [facility] Comment on above: Performed By: #### L MACU #### [facility] [address] [place], [place] [address] Glucose [Mass/Vol] 354 mg/dL High 70-99 [facility] Comment on above: Performed By: #### L MACU #### [facility] [address] [place], [place] [address] Potassium [Moles/Vol] 4.0 mmol/L Normal 3.5-5.1 [facility] Comment on above: Performed By: #### L MACU #### [facility] [address] [place], [place] [address] Protein [Mass/Vol] 7.0 g/dL Normal 6.4-8.2 [facility] Comment on above: Performed By: #### L MACU #### [facility] [address] [place], [place] [address] Sodium [Moles/Vol] 133 mmol/L Low 136-145 [facility] Comment on above: Performed By: #### L MACU #### [address] [address] Urea nitrogen [Mass/Vol] 4 mg/dL Low 7-25 [facility] Comment on above: Performed By: #### L MACU #### [facility] [address] [place], [place] [address] Urea nitrogen/Creatinine [Mass ratio] 8 mg/mg Low 10-20 [facility] Comment on above: Performed By: #### L MACU #### [address] [address] Glucose Meteron 06-08-2018 Glucose [Mass/Vol] 224 mg/dL High 70-99 [facility] Comment on above: Result Comment: CHAYITO Flores OTIFIED [place] [address] Performed By: #### L ACET #### [address] [address] HISTORY PHYSICALon 9 HISTORY PHYSICAL HNO ID: [id number] Author: Lisa Bocanegra Service: Hospital Medicine Author Type: Physician Type: HANDP Filed: 06/08/2018 8:28 PM Note Text: SERVICE DATE: 06/08/2018 SERVICE TIME: 8:28 PM HOSPITAL MEDICINE HISTORY AND PHYSICAL PCP: Uziel Conteh MD NIGHT AND WEEKEND COVERAGE: Nights: Please contact pager [phone]. SUBJECTIVE Chief Complaint: abd pain- 4 days [...] with long-term current use of insulin ([facility]) Assessment: HBAIC 11.2 on 12/06/17 She takes [...] 1615 vte non-pharmacologic prophylaxis - none indicated (nc,or) 06/08/18 1615 activity - mobilize patient (nc,or) VTE Prophylaxis: VTE prophylaxis appropriate SIGNATURE: Lisa Bocanegra MD PATIENT NAME: Trenton Jackson DATE: June 08, 2018 TIME: 8:28 PM PAGER/CONTACT #: [phone] [facility] Hemoglobin A1con 06-08-2018 Hemoglobin A1c/Hemoglobin.total mass fraction (Bld) Unable to assay. No specimen received. [facility] Comment on above: Performed By: #### H STNT #### [facility] [address] [facility] [phone] Hemogram/Diffon 06-08-2018 Erythrocyte distribution width (RBC) [Ratio] 12.8 % Normal 11.5-15.9 [facility] Comment on above: Performed By: #### L MACU #### [facility] [address] [address] Hemoglobin (Bld) [Mass/Vol] 16.0 g/dL Normal 12.0-16.0 [facility] Comment on above: Performed By: #### L MACU #### [address] [address] MCHC (RBC) [Mass/Vol] 34.4 % Normal 32.0-36.0 [facility] Comment on above: Performed By: #### L MACU #### [address] [address] MCV (RBC) [Entitic vol] 80.3 fL Low 81.0-99.0 [facility] Comment on above: Performed By: #### L MACU #### [address] [address] WBC (Bld) [#/Vol] 14.0 thou/cmm High 4.8-10.8 [facility] Comment on above: Performed By: #### L MACU #### [address] [place] [address] Hemogram/Manual Diffon 06-08 Abs. Baso 0.00 thou/cmm Normal 0.00-0.08 [facility] Comment on above: Performed By: #### L MACU #### [address] [address] Abs. Eosin 0.00 thou/cmm Normal 0.00-0.41 [facility] Comment on above: Performed By: #### L MACU #### [address] [address] Abs. Lymph 2.24 thou/cmm Normal 1.50-3.65 [facility] Comment on above: Performed By: #### L MACU #### [facility] [address] [address] Abs. Amador 0.28 thou/cmm Normal 0.20-1.00 [facility] Comment on above: Performed By: #### L MACU #### [facility] [address] [address] Abs. Neut (ANC) 11.48 thou/cmm High 3.00-5.67 [facility] Comment on above: Performed By: #### L MACU #### [facility] [address] [address] Basophil 0.0 % Normal [facility] Comment on above: Performed By: #### L MACU #### [facility] [address] [address] Eosinophil 0.0 % Normal [facility] Comment on above: Performed By: #### L MACU #### [facility] [address] [address] Lymphocyte 16.0 % Normal [facility] Comment on above: Performed By: #### L MACU #### [facility] [address] [address] Monocyte 2.0 % Normal [facility] Comment on above: Performed By: #### L MACU #### [address] [address] Platelets (Bld) [#/Vol] Normal Normal [facility] Comment on above: Performed By: #### L MACU #### [facility] [address] [address] RBC morphology finding Nom (Bld) Normal Normal [facility] Comment on above: Performed By: #### L MACU #### [facility] [address] [address] Seg Neutrophil 82.0 % Normal [facility] Comment on above: Performed By: #### L MACU #### [facility] [address] [address] Toxic Granulation Few Normal [facility] Comment on above: Performed By: #### L MACU #### [facility] [address] [address] WBC Morphology see below Normal [facility] Comment on above: Result Comment: Toxi c vacuoles present Performed By: #### L MACU #### [facility] [address] [address] Diff Type Manual Diff Normal [facility] Comment on above: Performed By: #### L MACU #### [address] [address] Hematocrit (Bld) [Volume fraction] 46.5 % Normal 37.0-47.0 [facility] Comment on above: Performed By: #### L MACU #### [address] [address] MCH (RBC) [Entitic mass] 27.6 pg Normal 27.0-31.0 [facility] Comment on above: Performed By: #### L MACU #### [address] [address] Platelet mean volume (Bld) [Entitic vol] 9.5 fl Normal 7.1-10.5 [facility] Comment on above: Performed By: #### L MACU #### [address] [address] Platelets (Bld) [#/Vol] 197 thou/cmm Normal 150-400 [facility] Comment on above: Performed By: #### L MACU #### [address] [address] RBC (Bld) [#/Vol] 5.79 mil/cmm High 4.20-5.40 [facility] Comment on above: Performed By: #### L MACU #### [address] [address] Lactic acidon 06-08-2018 Lactate [Moles/Vol] 1.2 mmol/L Normal 0.4-2.0 [facility] Comment on above: Performed By: #### L MACU #### [address] [address] MDRD eGFRon 06-08-2018 GFR/1.73 sq M predicted among non-blacks MDRD (S/P/Bld) [Vol rate/Area] mL/min/{1.73_m2} Normal >60mL/min/ 1.73m2 [facility] Comment on above: Result Comment: If t he patient is , multiply the result by 1.210. Performed By: #### L ACET #### [address] [address] NT Pro BNPon 06-08-2018 Protein mass conc 763 pg/mL High <125 [facility] Comment on above: Performed By: #### H STNT #### [facility] [address] [facility] [phone] PROGRESSon 06-08-2018 Protein mass conc HNO ID: [id number] Author: Abbi Valencia (Pharmacist) Service: Pharmacy Author [...] ABBI VALENCIA, PHARMD, BCPS PAGER / Extension: [phone] Normal [facility] Urinalysis Routineon 019 Appearance (U) 1+ (HAZY) Normal [facility] Comment on above: Performed By: #### L ACET #### [address] [address] Bilirubin Urine Negative Normal Negative [facility] Comment on above: Performed By: #### L ACET #### [address] [address] Color (U) YELLOW Normal [facility] Comment on above: Performed By: #### L ACET #### [address] [address] Ep Cells Urine 2-5 Normal 0-5 [facility] Comment on above: Performed By: #### L ACET #### [facility] [address] [address] Glucose Ql (U) 2+ Abnormal Negative [facility] Comment on above: Performed By: #### L ACET #### [facility] [address] [address] Hemoglobin,Urine Negative Normal Negative [facility] Comment on above: Performed By: #### L ACET #### [facility] [address] [address] Ketone Urine 1+ Abnormal Negative [facility] Comment on above: Performed By: #### L ACET #### [facility] [address] [address] Leukocytes Esterase Negative Normal Negative [facility] Comment on above: Performed By: #### L ACET #### [address] [place] [address] Nitrites Urine Negative Normal Negative [facility] Comment on above: Performed By: #### L ACET #### [address] [address] pH (U) 7.0 [pH] Normal 5.0-8.0 [facility] Comment on above: Performed By: #### L ACET #### [facility] [address] [address] Protein (U) [Mass/Vol] Negative Normal Negative [facility] Comment on above: Performed By: #### L ACET #### [address] [place] [address] RBC LM.HPF (Urine sed) [#/Area] 0-3 Normal 0-3 [facility] Comment on above: Performed By: #### L ACET #### [address] [address] Specific [place], Ur 1.015 Normal 1.005-1 .03 0 [facility] Comment on above: Performed By: #### L ACET #### [address] [address] Urobilinogen,Ur 0.2 EU/dL Normal 0.0-1.0 [facility] Comment on above: Performed By: #### L ACET #### [facility] [address] [place], [place] [address] WBC LM.HPF (Urine sed) [#/Area] NONE Normal 0-5 [facility] Comment on above: Performed By: #### L ACET #### [facility] [address] [place], [place] [address] Urine HCG, Qual.on 9 Beta HCG ( test) Ql (U) Negative Normal Negative [facility] Comment on above: Performed By: #### L ACET #### [facility] [address] [place], [place] [address] CT ABDOMEN AND PELVIS WITH C ONTRASTon 06-07-2018 CT ABDOMEN AND PELVIS WITH CONTRAST Performed at [facility] APPROVED BY: Chalo Russell MD EXAMINATION: CT [...] evidence of an abscess or pneumoperitoneum Normal [facility] Comprehensive Panelon 2018 Albumin [Mass/Vol] 3.5 g/dL Normal 3.4-5.0 [facility] Comment on above: Performed By: #### L MACU #### [address] [place] [address] ALP [Catalytic activity/Vol] 112 U/L Normal 46-116 [facility] Comment on above: Performed By: #### L MACU #### [address] [place] [address] ALT-SGPT Blood 17 U/L Normal 14-63 [facility] Comment on above: Performed By: #### L MACU #### [address] [place] [address] Anion gap [Moles/Vol] 14 mmol/L Normal 8-20 [facility] Comment on above: Performed By: #### L MACU #### [address] [place] [address] AST-SGOT Blood 16 U/L Normal 15-37 [facility] Comment on above: Performed By: #### L MACU #### [address] [place] [address] Bilirubin Ql (U) 0.7 mg/dL Normal 0.2-1.0 [facility] Comment on above: Performed By: #### L MACU #### [address] [place] [address] Calcium [Mass/Vol] 9.1 mg/dL Normal 8.5-10.1 [facility] Comment on above: Performed By: #### L MACU #### [facility] [address] [place], [place] [address] Chloride [Moles/Vol] 97 mmol/L Low 98-107 [facility] Comment on above: Performed By: #### L MACU #### [facility] [address] [place], [place] [address] CO2 Blood 27 mEq/L Normal 21-32 [facility] Comment on above: Performed By: #### L MACU #### [facility] [address] [place], [place] [address] Creatinine [Mass/Vol] 0.57 mg/dL Normal 0.51-0.95 [facility] Comment on above: Performed By: #### L MACU #### [facility] [address] [place], [place] [address] Glucose [Mass/Vol] 416 mg/dL Critically high 70-99 [facility] Comment on above: Performed By: #### L MACU #### [facility] [address] [place], [place] [address] Potassium [Moles/Vol] 3.9 mmol/L Normal 3.5-5.1 [facility] Comment on above: Performed By: #### L MACU #### [facility] [address] [place], [place] [address] Protein [Mass/Vol] 7.4 g/dL Normal 6.4-8.2 [facility] Comment on above: Performed By: #### L MACU #### [facility] [address] [place], [place] [address] Sodium [Moles/Vol] 134 mmol/L Low 136-145 [facility] Comment on above: Performed By: #### L MACU #### [facility] [address] [place], [place] [address] Urea nitrogen [Mass/Vol] 7 mg/dL Normal 7-25 [facility] Comment on above: Performed By: #### L MACU #### [facility] [address] [place], [place] [address] Urea nitrogen/Creatinine [Mass ratio] 12 mg/mg Normal 10-20 [facility] Comment on above: Performed By: #### L MACU #### [facility] [address] [address] Glucose Meteron 06-07-2018 Glucose [Mass/Vol] 326 mg/dL High 70-99 [facility] Comment on above: Result Comment: CHAYITO MÉNDEZ MD NOTIFIED [place] [address] Performed By: #### L MACU #### [address] [place] [address] Hemogram/Diffon 06-07-2018 Abs. Baso 0.07 thou/cmm Normal 0.00-0.08 [facility] Comment on above: Performed By: #### L CBCD #### [address] [place] [address] Abs. Amador 0.43 thou/cmm Normal 0.20-1.00 [facility] Comment on above: Performed By: #### L CBCD #### [place] [address] Abs. Neut (ANC) 9.53 thou/cmm High 3.00-5.67 [facility] Comment on above: Performed By: #### L CBCD #### [address] [place] [address] Basophils/100 WBC (Bld) 0.6 % Normal [facility] Comment on above: Performed By: #### L CBCD #### [address] [place] [address] Eosinophils (Bld) [#/Vol] 0.17 thou/cmm Normal 0.00-0.41 [facility] Comment on above: Performed By: #### L CBCD #### [address] [place] [address] Eosinophils/100 WBC (Bld) 1.4 % Normal [facility] Comment on above: Performed By: #### L CBCD #### [address] [place] [address] Erythrocyte distribution width (RBC) [Ratio] 12.8 % Normal 11.5-15.9 [facility] Comment on above: Performed By: #### L CBCD #### [facility] [address] [place], [place] [address] Hematocrit (Bld) [Volume fraction] 47.7 % High 37.0-47.0 [facility] Comment on above: Performed By: #### L CBCD #### [facility] [address] [place], [place] [address] Hemoglobin (Bld) [Mass/Vol] 16.1 g/dL High 12.0-16.0 [facility] Comment on above: Performed By: #### L CBCD #### [address] [address] Lymphocytes (Bld) [#/Vol] 2.00 thou/cmm Normal 1.50-3.65 [facility] Comment on above: Performed By: #### L CBCD #### [address] [address] Lymphocytes/100 WBC (Bld) 16.4 % Normal [facility] Comment on above: Performed By: #### L CBCD #### [address] [address] MCH (RBC) [Entitic mass] 27.3 pg Normal 27.0-31.0 [facility] Comment on above: Performed By: #### L CBCD #### [address] [address] MCHC (RBC) [Mass/Vol] 33.8 % Normal 32.0-36.0 [facility] Comment on above: Performed By: #### L CBCD #### [address] [address] MCV (RBC) [Entitic vol] 81.0 fL Normal 81.0-99.0 [facility] Comment on above: Performed By: #### L CBCD #### [address] [address] Monocytes/100 WBC (Bld) 3.5 % Normal [facility] Comment on above: Performed By: #### L CBCD #### [address] [place], [place] [address] Platelet mean volume (Bld) [Entitic vol] 9.5 fL Normal 7.1-10.5 [facility] Comment on above: Performed By: #### L CBCD #### [facility] [address] [address] Platelets (Bld) [#/Vol] 235 thou/cmm Normal 150-400 [facility] Comment on above: Performed By: #### L CBCD #### [facility] [address] [address] RBC (Bld) [#/Vol] 5.89 mil/cmm High 4.20-5.40 [facility] Comment on above: Performed By: #### L CBCD #### [place] [address] Seg Neutrophil 78.1 % Normal [facility] Comment on above: Performed By: #### L CBCD #### [place] [address] WBC (Bld) [#/Vol] 12.2 thou/cmm High 4.8-10.8 [facility] Comment on above: Performed By: #### L CBCD #### [place] [address] Lactic acidon 06-07-2018 Lactate [Moles/Vol] 1.6 mmol/L Normal 0.4-2.0 [facility] Comment on above: Performed By: #### L MACU #### [place] [address] MDRD eGFRon 06-07-2018 GFR/1.73 sq M predicted among non-blacks MDRD (S/P/Bld) [Vol rate/Area] mL/min/{1.73_m2} Normal >60mL/min/ 1.73m2 [facility] Comment on above: Result Comment: If t he patient is , multiply the result by 1.210. Performed By: #### L MACU #### [place] [address] Macroscopic Urinalysison Appearance (U) CLEAR Normal [facility] Comment on above: Performed By: #### L MACU #### [facility] [address] [address] Bilirubin Urine Negative Normal Negative [facility] Comment on above: Performed By: #### L MACU #### [facility] [address] [address] Color (U) YELLOW Normal [facility] Comment on above: Performed By: #### L MACU #### [facility] [address] [address] Glucose Ql (U) 3+ Abnormal Negative [facility] Comment on above: Performed By: #### L MACU #### [place] [address] Hemoglobin,Urine Negative Normal Negative [facility] Comment on above: Performed By: #### L MACU #### [place] [address] Ketone Urine TRACE Abnormal Negative [facility] Comment on above: Performed By: #### L MACU #### [place] [address] Leukocytes Esterase Negative Normal Negative [facility] Comment on above: Performed By: #### L MACU #### [place] [address] Nitrites Urine Negative Normal Negative [facility] Comment on above: Performed By: #### L MACU #### [place] [address] pH (U) 6.5 [pH] Normal 5.0-8.0 [facility] Comment on above: Performed By: #### L MACU #### [place] [address] Protein (U) [Mass/Vol] Negative Normal Negative [facility] Comment on above: Performed By: #### L MACU #### [place] [address] Specific [place], Ur <=1.005 Normal 1.005-1 .03 0 [facility] Comment on above: Performed By: #### L MACU #### [facility] [address] [place], [place] [address] Urobilinogen,Ur 0.2 EU/dL Normal 0.0-1.0 [facility] Comment on above: Performed By: #### L MACU #### [facility] [address] [place], [place] [address] CT ABDOMEN AND PELVIS WITH C ONTRASTon 06-04-2018 CT ABDOMEN AND PELVIS WITH CONTRAST Performed at [facility] APPROVED BY: Nixon Cortez MD EXAM TITLE: [...] additional stable chronic findings as above Normal [facility] Comprehensive Panelon 2018 Albumin [Mass/Vol] 3.9 g/dL Normal 3.4-5.0 [facility] Comment on above: Performed By: #### L P14 #### [place] [address] ALP [Catalytic activity/Vol] 139 U/L High 46-116 [facility] Comment on above: Performed By: #### L P14 #### [place] [address] ALT-SGPT Blood 22 U/L Normal 14-63 [facility] Comment on above: Performed By: #### L P14 #### [place] [address] Anion gap [Moles/Vol] 13 mmol/L Normal 8-20 [facility] Comment on above: Performed By: #### L P14 #### [place] [address] AST-SGOT Blood 19 U/L Normal 15-37 [facility] Comment on above: Performed By: #### L P14 #### [place] [address] Bilirubin Ql (U) 0.7 mg/dL Normal 0.2-1.0 [facility] Comment on above: Performed By: #### L P14 #### [place] [address] Calcium [Mass/Vol] 9.5 mg/dL Normal 8.5-10.1 [facility] Comment on above: Performed By: #### L P14 #### [facility] [address] [place], [place] [address] Chloride [Moles/Vol] 97 mmol/L Low 98-107 [facility] Comment on above: Performed By: #### L P14 #### [facility] [address] [place], [place] [address] CO2 Blood 23 mEq/L Normal 21-32 [facility] Comment on above: Performed By: #### L P14 #### [facility] [address] [place], [place] [address] Creatinine [Mass/Vol] 0.56 mg/dL Normal 0.51-0.95 [facility] Comment on above: Performed By: #### L P14 #### [facility] [address] [place], [place] [address] Glucose [Mass/Vol] 323 mg/dL High 70-99 [facility] Comment on above: Performed By: #### L P14 #### [facility] [address] [place], [place] [address] Potassium [Moles/Vol] 4.5 mmol/L Normal 3.5-5.1 [facility] Comment on above: Performed By: #### L P14 #### [facility] [address] [place], [place] [address] Protein [Mass/Vol] 8.0 g/dL Normal 6.4-8.2 [facility] Comment on above: Performed By: #### L P14 #### [facility] [address] [place], [place] [address] Sodium [Moles/Vol] 129 mmol/L Low 136-145 [facility] Comment on above: Performed By: #### L P14 #### [facility] [address] [place], [place] [address] Urea nitrogen [Mass/Vol] 9 mg/dL Normal 7-25 [facility] Comment on above: Performed By: #### L P14 #### [facility] [address] [place], [place] [address] Urea nitrogen/Creatinine [Mass ratio] 16 mg/mg Normal 10-20 [facility] Comment on above: Performed By: #### L P14 #### [facility] [address] [address] HCG, Qual. Serumon 9 HCG, Qual. Serum Negative Normal Negative [facility] Comment on above: Performed By: #### L SHCG #### [facility] [address] [place] [address] Hemogram/Manual Diffon 06-04 Abs. Baso 0.00 thou/cmm Normal 0.00-0.08 [facility] Comment on above: Performed By: #### L MCBD #### [facility] [address] [place] [address] Abs. Eosin 0.17 thou/cmm Normal 0.00-0.41 [facility] Comment on above: Performed By: #### L MCBD #### [facility] [address] [place] [address] Abs. Lymph 3.46 thou/cmm Normal 1.50-3.65 [facility] Comment on above: Performed By: #### L MCBD #### [facility] [facility] [address] [place] [address] Abs. Amador 0.69 thou/cmm Normal 0.20-1.00 [facility] Comment on above: Performed By: #### L MCBD #### [facility] [address] [address] Abs. Neut (ANC) 12.98 thou/cmm High 3.00-5.67 [facility] Comment on above: Performed By: #### L MCBD #### [facility] [address] [address] Atypical Lymph 3.0 % Normal [facility] Comment on above: Performed By: #### L MCBD #### [facility] [address] [address] Basophil 0.0 % Normal [facility] Comment on above: Performed By: #### L MCBD #### [place] [address] Eosinophil 1.0 % Normal [facility] Comment on above: Performed By: #### L MCBD #### [facility] [address] [address] Lymphocyte 17.0 % Normal [facility] Comment on above: Performed By: #### L MCBD #### [facility] [address] [address] Metamyelocytes 2.0 % Normal [facility] Comment on above: Performed By: #### L MCBD #### [facility] [address] [place] [address] Monocyte 4.0 % Normal [facility] Comment on above: Performed By: #### L MCBD #### [facility] [address] [address] Platelets (Bld) [#/Vol] Normal Normal [facility] Comment on above: Performed By: #### L MCBD #### [place] [address] RBC morphology finding Nom (Bld) Normal Normal [facility] Comment on above: Performed By: #### L MCBD #### [facility] [address] [address] Seg Neutrophil 73.0 % Normal [facility] Comment on above: Performed By: #### L MCBD #### [facility] [address] [address] Toxic Granulation Few Normal [facility] Comment on above: Performed By: #### L MCBD #### [place] [address] WBC Morphology see below Normal [facility] Comment on above: Result Comment: Toxi c vacuoles present Performed By: #### L MCBD #### [facility] [address] [address] Diff Type Manual Diff Normal [facility] Comment on above: Performed By: #### L MCBD #### [facility] [address] [address] Erythrocyte distribution width (RBC) [Ratio] 13.2 % Normal 11.5-15.9 [facility] Comment on above: Performed By: #### L MCBD #### [address], [place] [address] Hematocrit (Bld) [Volume fraction] 51.8 % High 37.0-47.0 [facility] Comment on above: Performed By: #### L MCBD #### [facility] [address] [place], [place] [address] Hemoglobin (Bld) [Mass/Vol] 17.7 g/dL High 12.0-16.0 [facility] Comment on above: Performed By: #### L MCBD #### [facility] [address] [address] MCH (RBC) [Entitic mass] 27.5 pg Normal 27.0-31.0 [facility] Comment on above: Performed By: #### L MCBD #### [facility] [address] [address] MCHC (RBC) [Mass/Vol] 34.2 % Normal 32.0-36.0 [facility] Comment on above: Performed By: #### L MCBD #### [place] [address] MCV (RBC) [Entitic vol] 80.4 fl Low 81.0-99.0 [facility] Comment on above: Performed By: #### L MCBD #### [place] [address] Platelet mean volume (Bld) [Entitic vol] 10.3 fl Normal 7.1-10.5 [facility] Comment on above: Performed By: #### L MCBD #### [facility] [address] [address] Platelets (Bld) [#/Vol] 224 thou/cmm Normal 150-400 [facility] Comment on above: Performed By: #### L MCBD #### [facility] [address] [address] RBC (Bld) [#/Vol] 6.44 mil/cmm High 4.20-5.40 [facility] Comment on above: Performed By: #### L MCBD #### [place] [address] WBC (Bld) [#/Vol] 17.3 thou/cmm High 4.8-10.8 [facility] Comment on above: Performed By: #### L MCBD #### [place] [address] Ketoneson 06-04-2018 Ketones Ql (U) Negative Normal Negative [facility] Comment on above: Performed By: #### L ACET #### [place] [address] Lipase Bloodon 06-04-2018 Lipase Blood 85 U/L Normal 73-393 [facility] Comment on above: Performed By: #### L LIP #### [place] [address] MDRD eGFRon 06-04-2018 GFR/1.73 sq M predicted among non-blacks MDRD (S/P/Bld) [Vol rate/Area] mL/min/{1.73_m2} Normal >60mL/min/ 1.73m2 [facility] Comment on above: Result Comment: If t he patient is , multiply the result by 1.210. Performed By: #### L GFR #### [place] [address] Macroscopic Urinalysison Appearance (U) CLEAR Normal [facility] Comment on above: Performed By: #### L MACU #### [place] [address] Bilirubin Urine Negative Normal Negative [facility] Comment on above: Performed By: #### L MACU #### [place] [address] Color (U) YELLOW Normal [facility] Comment on above: Performed By: #### L MACU #### [place] [address] Glucose Ql (U) 2+ Abnormal Negative [facility] Comment on above: Performed By: #### L MACU #### [place] [address] Hemoglobin,Urine Negative Normal Negative [facility] Comment on above: Performed By: #### L MACU #### [facility] [address] [place] [address] Ketone Urine Negative Normal Negative [facility] Comment on above: Performed By: #### L MACU #### [facility] [address] [place] [address] Leukocytes Esterase Negative Normal Negative [facility] Comment on above: Performed By: #### L MACU #### [facility] [address] [place] [address] Nitrites Urine Negative Normal Negative [facility] Comment on above: Performed By: #### L MACU #### [place] [address] pH (U) 5.0 [pH] Normal 5.0-8.0 [facility] Comment on above: Performed By: #### L MACU #### [place] [address] Protein (U) [Mass/Vol] Negative Normal Negative [facility] Comment on above: Performed By: #### L MACU #### [place] [address] Specific [place], Ur 1.020 Normal 1.005-1 .03 0 [facility] Comment on above: Performed By: #### L MACU #### [place] [address] Urobilinogen,Ur 0.2 EU/dL Normal 0.0-1.0 [facility] Comment on above: Performed By: #### L MACU #### [place] [address] Macroscopic Urinalysison Appearance (U) CLEAR Normal [facility] Comment on above: Performed By: #### L MACU #### [place] [address] Bilirubin Urine Negative Normal Negative [facility] Comment on above: Performed By: #### L MACU #### [place] [address] Color (U) YELLOW Normal [facility] Comment on above: Performed By: #### L MACU #### [facility] [address] [place] [address] Glucose Ql (U) 2+ Abnormal Negative [facility] Comment on above: Performed By: #### L MACU #### [facility] [address] [place] [address] Hemoglobin,Urine Negative Normal Negative [facility] Comment on above: Performed By: #### L MACU #### [facility] [address] [place] [address] Ketone Urine Negative Normal Negative [facility] Comment on above: Performed By: #### L MACU #### [place] [address] Leukocytes Esterase Negative Normal Negative [facility] Comment on above: Performed By: #### L MACU #### [place] [address] Nitrites Urine Negative Normal Negative [facility] Comment on above: Performed By: #### L MACU #### [place] [address] pH (U) 6.0 [pH] Normal 5.0-8.0 [facility] Comment on above: Performed By: #### L MACU #### [facility] [address] [place] [address] Protein (U) [Mass/Vol] Negative Normal Negative [facility] Comment on above: Performed By: #### L MACU #### [place] [address] Specific [place], Ur 1.020 Normal 1.005-1 .03 0 [facility] Comment on above: Performed By: #### L MACU #### [place] [address] Urobilinogen,Ur 0.2 EU/dL Normal 0.0-1.0 [facility] Comment on above: Performed By: #### L MACU #### [place] [address] CBC and Differentialon 12-14 Abs Baso 0.06 k/uL Normal <0.11 [facility] Comment on above: Performed By: #### N DIDIER CKCKMB #### [facility] [address] [address] Abs Amador 0.69 k/uL Normal <0.87 [facility] Comment on above: Performed By: #### N DIDIER CKCKMB #### [facility] [address] [address] Abs Neut 8.14 k/uL High 1.45-7.50 [facility] Comment on above: Performed By: #### N DIDIER CKCKMB #### [facility] [address] [address] Basophils/100 WBC (Bld) 0.5 % Normal [facility] Comment on above: Performed By: #### N DIDIER CKCKMB #### [facility] [address] [address] Eosinophils #/vol (Bld) 0.14 10*3/uL Normal <0.46 [facility] Comment on above: Performed By: #### N DIDIER CKCKMB #### [facility] [address] [address] Eosinophils/100 WBC (Bld) 1.2 % Normal [facility] Comment on above: Performed By: #### N DIDIER CKCKMB #### [facility] [address] [address] Erythrocyte distribution width Ratio (RBC) 13.1 % Normal 11.5-15.0 [facility] Comment on above: Performed By: #### N DIDIER CKCKMB #### [facility] [address] [address] Hematocrit Volume Fraction (Bld) 46.6 % High 36.0-46.0 [facility] Comment on above: Performed By: #### N DIDIER CKCKMB #### [facility] [address] [address] Hemoglobin mass conc (Bld) 15.9 g/dL High 11.5-15.5 [facility] Comment on above: Performed By: #### N TBAMOR CKCKMB #### [facility] [address] [phone] Lymphocytes #/vol (Bld) 2.69 10*3/uL Normal 1.00-4.00 [facility] Comment on above: Performed By: #### N TBAMOR CKCKMB #### [facility] [address] [address] Lymphocytes/100 WBC (Bld) 23.0 % Normal [facility] Comment on above: Performed By: #### N TBAMOR CKCKMB #### [facility] [address] [address] MCH Entitic mass (RBC) 28.0 pG Normal 26.0-34.0 [facility] Comment on above: Performed By: #### N TBAMOR CKCKMB #### [facility] [address] [address] MCHC mass conc (RBC) 34.1 g/dL Normal 30.5-36.0 [facility] Comment on above: Performed By: #### N TBAMOR CKCKMB #### [facility] [address] [place] [address] MCV Entitic volume (RBC) 82.0 fL Normal 80.0-100.0 [facility] Comment on above: Performed By: #### N TBAMOR CKCKMB #### [facility] [address] [place] [address] Monocytes/100 WBC (Bld) 5.9 % Normal [facility] Comment on above: Performed By: #### N TBAMOR CKCKMB #### [facility] [address] [place] [address] Neutrophils/100 WBC (Bld) 69.4 % Normal [facility] Comment on above: Performed By: #### N TBAMOR CKCKMB #### [facility] [address] [place] [address] Platelet mean volume Entitic volume (Bld) 10.5 fL Normal 9.0-12.7 [facility] Comment on above: Performed By: #### N TBAMOR CKCKMB #### [facility] [address] [place] [address] Platelets #/vol (Bld) 236 10*3/uL Normal 150-400 [facility] Comment on above: Performed By: #### N TBAMOR CKCKMB #### [facility] [address] [phone] RBC #/vol (Bld) 5.68 10*6/uL High 3.90-5.20 [facility] Comment on above: Performed By: #### N TBNP, CKCKMB #### [facility] [address] [facility] [phone] WBC #/vol (Bld) 11.72 10*3/uL High 3.70-11.00 [facility] Comment on above: Performed By: #### N TBNP, CKCKMB #### [facility] [address] [phone] CK, Total and CKMBon 018 CK enzyme act/vol 41 U/L Low 42-196 [facility] Comment on above: Performed By: #### N TBNP, CKCKMB #### [facility] [address] [phone] CK MB % CK MB % not reported with CK <100 U/L. Normal 0.0-4.0 [facility] Comment on above: Performed By: #### N TBNP, CKCKMB #### [facility] [address] [phone] MB 1.5 ng/mL Normal <4.3 [facility] Comment on above: Performed By: #### N TBNP, CKCKMB #### [facility] [address] [phone] CT CHEST W IVCON PEon 2017 CT CHEST W IVCON PE * * *Final Report* * * DATE OF EXAM: Dec 14 2017 6:46PM [facility] 0540 - CT CHEST W IVCON PE [...] nodes. Cholecystectomy. Bilateral adrenal nodules, possibly adenomas. Life Sciences Director: GEORGE Transcribe Date/Time: Dec 14 2017 7:14P Dictated by : WILLA VELASCO MD This examination was interpreted and the report reviewed and electronically signed by: WILLA VELASCO MD on Dec 14 2017 7:21PM EST [id number] Normal [facility] Comp Metabolic Panelon 12-14 Albumin mass conc 3.8 g/dL Low 3.9-4.9 [facility] Comment on above: Performed By: #### N TBNP, CKCKMB #### [facility] [address] [facility] [phone] ALP enzyme act/vol 82 U/L Normal 32-117 [facility] Comment on above: Performed By: #### N TBNP, CKCKMB #### [facility] [address] [facility] [phone] ALT enzyme act/vol 17 U/L Normal 7-38 [facility] Comment on above: Performed By: #### N DIDIER CKCKMB #### [facility] [address] [address] Anion gap molar conc 10 mmol/L Normal 9-18 [facility] Comment on above: Performed By: #### N DIDIER CKCKMB #### [facility] [address] [address] AST enzyme act/vol 17 U/L Normal 13-35 [facility] Comment on above: Performed By: #### N DIDIER CKCKMB #### [facility] [address] [address] Bilirubin mass conc 0.6 mg/dL Normal 0.2-1.3 [facility] Comment on above: Performed By: #### N DIDIER CKCKMB #### [facility] [address] [address] Calcium mass conc 8.9 mg/dL Normal 8.5-10.2 [facility] Comment on above: Performed By: #### N DIDIER CKCKMB #### [facility] [address] [address] Chloride molar conc 99 mmol/L Normal 97-105 [facility] Comment on above: Performed By: #### N DIDIER CKCKMB #### [facility] [address] [address] CO2 molar conc 28 mmol/L Normal 22-30 [facility] Comment on above: Performed By: #### N DIDIER CKCKMB #### [facility] [address] [address] Creatinine mass conc 0.67 mg/dL Normal 0.58-0.96 [facility] Comment on above: Performed By: #### N DIDIER CKCKMB #### [facility] [address] [address] eGFR- Amer. >60 Normal [facility] Comment on above: Performed By: #### N TBAMOR CKCKMB #### [facility] [address] [place] [address] GFR/1.73 sq M predicted among non-blacks MDRD vol rate/area (S/P/Bld) mL/min/{1.73_m2} Normal [facility] Comment on above: Result Comment: eGFR (Estimated [...] #### N DIDIER CKCKMB #### [facility] [address] [place] [address] Glucose mass conc 180 mg/dL High 74-99 [facility] Comment on above: Result Comment: The [place] Diabetes Association (ADA) provides guidance for cutoff [...] Standards of Medical Care in Diabetes 2016, [place] Diabetes Association. Diabetes Care. 2016.39(Suppl 1). Performed By: #### N DIDIER CKCKMB #### [facility] [address] [facility] [phone] Potassium molar conc 4.2 mmol/L Normal 3.7-5.1 [facility] Comment on above: Performed By: #### N DIDIER CKCKMB #### [facility] [address] [place] [address] Protein mass conc 6.9 g/dL Normal 6.3-8.0 [facility] Comment on above: Performed By: #### N DIDIER CKCKMB #### [facility] [address] [facility] [phone] Sodium molar conc 137 mmol/L Normal 136-144 [facility] Comment on above: Performed By: #### N DIDIER, CKCKMB #### [facility] [address] [facility] [phone] Urea nitrogen mass conc 9 mg/dL Normal 7-21 [facility] Comment on above: Performed By: #### N DIDIER, CKCKMB #### [facility] [address] [facility] [phone] D dimeron 12-14-2017 D dimer 600 ng/mL FEU High 0-500 [facility] Comment on above: Result Comment: The D-dimer [...] #### N DIDIER, CKCKMB #### [facility] [address] [facility] [phone] ED NOTEon 12-14-2017 ED NOTE HNO ID: [id number] Author: Stacey AgudeloRn) CHAYITO Godinez Service: (none) Author Type: Registered Nurse Type: ED Notes Filed: 12/14/2017 7:58 PM Note Text: Patient in stable condition upon discharge. resp even and unlabored. No distress noted. Patient states she is feeling much better. Discharge and follow up reviewed, plan of care is agreed upon. Patient thankful for care upon discharge. [facility] ED NOTE HNO ID: [id number] Author: Lyla AgudeloRn) Desiree, RN Service: Nursing Author Type: Registered Nurse Type: ED Notes Filed: 12/14/2017 6:43 PM Note Text: Patient returned to the Emergency Department. [facility] ED NOTE HNO ID: [id number] Author: Lyla AgudeloRn) Desiree, RN Service: Nursing Author Type: Registered Nurse Type: ED Notes Filed: 12/14/2017 6:31 PM Note Text: Pt to CT with tech via wheelchair [facility] ED NOTE HNO ID: [id number] Author: Lyla (Rn) CHAYITO Ramírez Service: Nursing Author Type: Registered Nurse Type: ED Notes Filed: 12/14/2017 6:14 PM Note Text: Dr. Conway rounding on pt at bedside [facility] ED NOTE HNO ID: [id number] Author: Lyla AgudeloRn) CHAYITO Ramírez Service: Nursing Author Type: Registered Nurse Type: ED Notes Filed: 12/14/2017 3:31 PM Note Text: Patient returned to the Emergency Department. [facility] ED NOTE HNO ID: [id number] Author: Lyla AgudeloRn) CHAYITO Ramírez Service: Nursing Author Type: Registered Nurse Type: ED Notes Filed: 12/14/2017 3:25 PM Note Text: Pt to xray with tech. [facility] ED NOTE HNO ID: [id number] Author: Jazzmine AgudeloRn) CHAYITO Jarrett Service: Emergency Medicine Author Type: Registered Nurse Type: ED Notes Filed: 12/14/2017 3:28 PM Note Text: Report off care to Rcaquel STRATTON [facility] ED NOTE HNO ID: [id number] Author: Stacey AgudeloRn) CHAYITO Godinez Service: (none) Author Type: Registered Nurse Type: ED Notes Filed: 12/14/2017 2:57 PM Note Text: Patient presents to ED with chest pain x 4 days. Seen at [facility] and recently dc from [facility] ED PROV NOTEon 12-14-2017 Protein mass conc HNO ID: [id number] Author: Jimmie Conway DO Service: Emergency Medicine Author Type: Physician Type: ED Provider Notes Filed: 12/14/2017 7:42 PM Note Text: ED Provider Note Patient Name: Trenton Jackson SERVICE DATE: 12/14/17 History Patient presents with: Chest Pain 47-year-old female past medical history of diabetes hypertension hyperlipidemia tobacco abuse presents with chest pain. Patient recently had an admission at [facility] from December 04, 2017 2 December [...] Medications administered aspirin and Toradol Placed on manager english Reviewed and summarized previous medical records including recent admission at [facility] [place] for extensive cardiac workup Consultation obtained fuel cell builder Dr. Beyer Consultation recommendations unlikely to be related to recently diagnosed coronary artery dissection Stable upon arrival. EKG shows chronic abnormalities unchanged from recent EKGs.. Treated with aspirin followed by Toradol. Cardiac enzymes including troponin T and CK-MB within normal limits. Minimal leukocytosis noted. Chest x-ray negative. D-dimer mildly elevated. CT chest negative. Discussed with on-call fuel cell builder, chest pain unlikely to be related to recently diagnosed coronary artery dissection. Patient with significant improvement pain post analgesia as noted above. Will be discharged home in stable condition with continued use of previously prescribed tramadol and new prescription for Flexeril thoroughly notified of sedating effects. Referral provided to sole painter, will follow-up with both fuel cell builder and primary care physician as soon as [...] Jimmie Helm DO 12/14/171941 Normal [facility] Magnesiumon 12-14-2017 Magnesium mass conc 1.9 mg/dL Normal 1.7-2.3 [facility] Comment on above: Performed By: #### N TBNP, CKCKMB #### [facility] [address] [place] [address] Troponin Ton 12-14-2017 Troponin T.cardiac mass conc ug/L Normal 0.000-0.02 9 [facility] Comment on above: Performed By: #### N TBNP, CKCKMB #### [facility] [address] [place] [address] XR CHEST 2V FRONTAL/LATon XR CHEST 2V [...] Other: . IMPRESSION: No acute radiographic abnormality. Life Sciences Director: GEORGE Transcribe Date/Time: Dec 14 2017 3:44P Dictated by : WILLA VELASCO MD This examination was interpreted and the report reviewed and electronically signed by: WILLA VELASCO MD on Dec 14 2017 3:44PM EST [id number] Normal [facility] CBCon 12-04-2017 Erythrocyte distribution width Ratio (RBC) 13.1 % Normal 11.5-15.0 [facility] Comment on above: Performed By: #### C BCDIF, PT, PTT, CMP #### [facility] [address] [place] [address] Hematocrit Volume Fraction (Bld) 44.2 % Normal 36.0-46.0 [facility] Comment on above: Performed By: #### C BCDIF, PT, PTT, CMP #### [facility] [address] [place] [address] Hemoglobin mass conc (Bld) 14.8 g/dL Normal 11.5-15.5 [facility] Comment on above: Performed By: #### C BCDIF, PT, PTT, CMP #### [facility] [address] [place] [address] MCH Entitic mass (RBC) 27.5 pG Normal 26.0-34.0 [facility] Comment on above: Performed By: #### C BCDIF, PT, PTT, CMP #### [facility] [address] [place] [address] MCHC mass conc (RBC) 33.5 g/dL Normal 30.5-36.0 [facility] Comment on above: Performed By: #### C BCDIF, PT, PTT, CMP #### [facility] [address] [place], [place] [phone] MCV Entitic volume (RBC) 82.0 fL Normal 80.0-100.0 [facility] [facility] Comment on above: Performed By: #### C BCDIF, PT, PTT, CMP #### [facility] Laboratory [address] [place], [place] [id number] Platelet mean volume Entitic volume (Bld) 10.1 fL Normal 9.0-12.7 [facility] Comment on above: Performed By: #### C BCDIF, PT, PTT, CMP #### [facility] Laboratory [address] [phone] Platelets #/vol (Bld) 227 10*3/uL Normal 150-400 [facility] Comment on above: Performed By: #### C BCDIF, PT, PTT, CMP #### [facility] Laboratory [address] [phone] RBC #/vol (Bld) 5.39 10*6/uL High 3.90-5.20 [facility] Comment on above: Performed By: #### C BCDIF, PT, PTT, CMP #### [facility] [address] [phone] WBC #/vol (Bld) 9.07 10*3/uL Normal 3.70-11.00 [facility] Comment on above: Performed By: #### C BCDIF, PT, PTT, CMP #### [facility] Laboratory [address] [facility] [phone] CNCOon 12-04-2017 CNCO Letter Text December 04, 2017 Trenton Jackson [facility] [address] [facility] [address] Dear Ms. Jackson, The nurses and staff of [facility] hope this letter finds you feeling well [...] free to contact me, Bety Alcaraz RN ([phone]) or email me at, Additionally, you will [...] participation and thank you for choosing the [facility] for your health needs. Sincerely, Nurse Wash And Greaser: Bety Alcaraz RN ([phone]) [facility] Unit: 3 [facility] CONSULT PROGon 12-04-2017 Protein mass conc HNO ID: [id number] Author: Jevon Sherman Service: Clinical Cardiology Author [...] has anginal chest pain - [facility] for viability study with MRI or PET, and consider CABG with BRUCE-LAD if there is evidence of viability - continue aspirin and statin - continue ACEI - continue metoprolol - smoking cessation ? SIGNATURE: Jevon Sherman MD PATIENT NAME: Trenton Jackson DATE: December 04, 2017 TIME: 2:26 PM PAGER/CONTACT #: Normal [facility] Comp Metabolic Panelon 12-04 Albumin mass conc 3.3 g/dL Low 3.9-4.9 [facility] Comment on above: Performed By: #### C BCDIF, PT, PTT, CMP #### [facility] Laboratory [address] [place] [address] ALP enzyme act/vol 77 U/L Normal 32-117 [facility] Comment on above: Performed By: #### C BCDIF, PT, PTT, CMP #### [facility] [address] [place] [address] ALT enzyme act/vol 13 U/L Normal 7-38 [facility] Comment on above: Performed By: #### C BCDIF, PT, PTT, CMP #### [facility] [address] [place] [address] Anion gap molar conc 10 mmol/L Normal 9-18 [facility] Comment on above: Performed By: #### C BCDIF, PT, PTT, CMP #### [facility] [address] [place] [address] AST enzyme act/vol 15 U/L Normal 13-35 [facility] Comment on above: Performed By: #### C BCDIF, PT, PTT, CMP #### [facility] [address] [place] [address] Bilirubin mass conc 0.4 mg/dL Normal 0.2-1.3 [facility] Comment on above: Performed By: #### C BCDIF, PT, PTT, CMP #### [facility] [address] [phone] Calcium mass conc 8.7 mg/dL Normal 8.5-10.2 [facility] Comment on above: Performed By: #### C BCDIF, PT, PTT, CMP #### [facility] [address] Chloride molar conc 101 mmol/L Normal 97-105 [facility] Comment on above: Performed By: #### C BCDIF, PT, PTT, CMP #### [facility] [address] [address] CO2 molar conc 29 mmol/L Normal 22-30 [facility] Comment on above: Performed By: #### C BCDIF, PT, PTT, CMP #### [facility] [address] [address] Creatinine mass conc 0.66 mg/dL Normal 0.58-0.96 [facility] Comment on above: Performed By: #### C BCDIF, PT, PTT, CMP #### [facility] [address] [address] eGFR- Amer. >60 Normal [facility] Comment on above: Performed By: #### C BCDIF, PT, PTT, CMP #### [facility] [address] [place] [address] GFR/1.73 sq M predicted among non-blacks MDRD vol rate/area (S/P/Bld) mL/min/{1.73_m2} Normal [facility] Comment on above: Result Comment: eGFR (Estimated [...] BCDIF, PT, PTT, CMP #### [facility] [address] [address] Glucose mass conc 88 mg/dL Normal 74-99 [facility] Comment on above: Result Comment: The [place] Diabetes Association (ADA) provides guidance for cutoff [...] Standards of Medical Care in Diabetes 2016, [place] Diabetes Association. Diabetes Care. 2016.39(Suppl 1). Performed By: #### C BCDIF, PT, PTT, CMP #### [facility] [address] [place] [address] Potassium molar conc 4.1 mmol/L Normal 3.7-5.1 [facility] Comment on above: Performed By: #### C BCDIF, PT, PTT, CMP #### [facility] [address] [address] Protein mass conc 5.9 g/dL Low 6.3-8.0 [facility] Comment on above: Performed By: #### C BCDIF, PT, PTT, CMP #### [facility] [address] [address] Sodium molar conc 140 mmol/L Normal 136-144 [facility] Comment on above: Performed By: #### C BCDIF, PT, PTT, CMP #### [facility] [address] [place], [place] [phone] Urea nitrogen mass conc 12 mg/dL Normal 7-21 M [facility] Comment on above: Performed By: #### C BCDIF, PT, PTT, CMP #### [facility] [address] [place], [place] [phone] Magnesiumon 12-04-2017 Magnesium mass conc 1.8 mg/dL Normal 1.7-2.3 [facility] Comment on above: Performed By: #### C BCDIF, PT, PTT, CMP #### [facility] [address] [facility] [phone] NURSING PROGon 12-04-2017 Protein mass conc HNO ID: [id number] Author: Patricio AgudeloRn) CHAYITO Tate Service: Nursing Author Type: Registered Nurse Type: Nursing Progress Note Filed: 12/04/2017 10:43 PM Note Text: Nursing Progress Note Patient Name: Trenton Jackson Patient Location: [facility]/[id number] Daily Note: 1900: Assumed care of pt. [...] completed by: Patricio Tate RN [facility] Protein mass conc HNO ID: [id number] Author: Melissa AgudeloRn) CHAYITO Jeffries Service: Nursing Author Type: Registered Nurse Type: Nursing Progress Note Filed: 12/04/2017 3:11 PM Note Text: Nursing Progress Note Patient Name: Trenton Jackson [facility] Final air removed from right radial site. No bleeding noted. Bandaid applied. Report called to Jazzmine STRATTON on 3S. Pt transferred to floor on bed accomp by staff in stable cond. This note was completed by: Melissa Jeffries RN [facility] Protein mass conc HNO ID: [id number] Author: Brett AgudeloGonzalo Castorena RN Service: Nursing Author Type: Registered Nurse Type: Nursing Progress Note Filed: 12/04/2017 2:18 PM Note Text: Pt eating and drinking denies any complaints at this time. @1417 Report to Melissa STRATTON. [facility] Protein mass conc HNO ID: [id number] Author: Jazzmine AgudeloRn) CHAYITO Galvan Service: Nursing Author Type: Registered Nurse Type: Nursing Progress Note Filed: 12/04/2017 6:40 PM Note Text: Nursing Progress Note Patient Name: Trenton Jackson Patient Location: [place] [place] [facility] [place] Daily Note: 0730: Assumed care of pt. [...] completed by: Jazzmine Galvan RN [facility] PROCEDUREon 12-04-2017 Protein mass conc HNO ID: [id number] Author: Jevon Sherman Service: Clinical Cardiology Author Type: Physician Type: Procedures Filed: 12/10/2017 1:25 AM Note Text: [facility]- Cardiac Catheterization TRENTON JACKSON : 1970 AGE: 47 SEX: F ACCTNUM: [id number] [facility] [place] [facility] [place] [facility] LOCATION: [address] ATTENDING PHYSICIAN: DEX HANDY SURGEON: Jevon Sherman [...] PROCEDURE: The patient was brought to the vp lab, and she had mild chest pain at [...] 5-Uzbek short sheath. We then advanced a Whiteside catheter over a Wholey wire to the [...] 5. The patient will be transferred to [facility] for assessment of myocardial viability and consideration of revascularization of the LAD possibly with bypass grafting. Jevon Sherman M.D. Cardiovascular Medicine [id number] [facility] PROGRESSon 12-04-2017 Protein mass conc HNO ID: [id number] Author: Jevon Sherman Service: Clinical Cardiology Author [...] TIME: 11:14 AM The following are the [facility] Criteria for High Risk Catheterization: Patients with high-risk conditions listed above may require emergency catheter-based therapeutic interventions or open heart surgery. Hence, they shall undergo cardiac catheterization only in a catheterization laboratory that has open heart surgical support available on-site, (i.e., accessible from the catheterization laboratory or by [facility]). [facility]2017 CASE MANAGEM HNO ID: [id number] Author: Iqra Solano) CHAYITO Webster Service: Case [...] 03, 2017 TIME: 11:44 AM PAGER/CONTACT #: [phone] Normal [facility] CBCon 12-03-2017 Erythrocyte distribution width Ratio (RBC) 13.2 % Normal 11.5-15.0 [facility] Comment on above: Performed By: #### C BCDIF, PT, PTT, CMP #### [facility] [address] [facility] [phone] Hematocrit Volume Fraction (Bld) 46.0 % Normal 36.0-46.0 [facility] Comment on above: Performed By: #### C BCDIF, PT, PTT, CMP #### [facility] [address] [place] [address] Hemoglobin mass conc (Bld) 15.3 g/dL Normal 11.5-15.5 [facility] Comment on above: Performed By: #### C BCDIF, PT, PTT, CMP #### [facility] [address] [facility] [phone] MCH Entitic mass (RBC) 27.4 pG Normal 26.0-34.0 [facility] Comment on above: Performed By: #### C BCDIF, PT, PTT, CMP #### [facility] [address] [place] [address] MCHC mass conc (RBC) 33.3 g/dL Normal 30.5-36.0 [facility] Comment on above: Performed By: #### C BCDIF, PT, PTT, CMP #### [facility] [address] [facility] [phone] MCV Entitic volume (RBC) 82.4 fL Normal 80.0-100.0 [facility] Comment on above: Performed By: #### C BCDIF, PT, PTT, CMP #### [facility] [address] [place] [address] Platelet mean volume Entitic volume (Bld) 10.1 fL Normal 9.0-12.7 [facility] Comment on above: Performed By: #### C BCDIF, PT, PTT, CMP #### [facility] [address] [facility] [phone] Platelets #/vol (Bld) 224 10*3/uL Normal 150-400 [facility] Comment on above: Performed By: #### C BCDIF, PT, PTT, CMP #### [facility] [address] [facility] [phone] RBC #/vol (Bld) 5.58 10*6/uL High 3.90-5.20 [facility] Comment on above: Performed By: #### C BCDIF, PT, PTT, CMP #### [facility] [address] [facility] [phone] WBC #/vol (Bld) 9.13 10*3/uL Normal 3.70-11.00 [facility] Comment on above: Performed By: #### C BCDIF, PT, PTT, CMP #### [facility] [address] [facility] [phone] CONSULT PROGon 12-03-2017 Protein mass conc HNO ID: [id number] Author: Jevon Sherman Service: Clinical Cardiology Author [...] 5:25 PM PAGER/CONTACT #: Normal [facility] Comp Metabolic Panelon 12-03 Albumin mass conc 3.3 g/dL Low 3.9-4.9 [facility] Comment on above: Performed By: #### C BCDIF, PT, PTT, CMP #### [facility] [address] [address] ALP enzyme act/vol 83 U/L Normal 32-117 [facility] Comment on above: Performed By: #### C BCDIF, PT, PTT, CMP #### [facility] [address] [address] ALT enzyme act/vol 13 U/L Normal 7-38 [facility] Comment on above: Performed By: #### C BCDIF, PT, PTT, CMP #### [facility] [address] [address] Anion gap molar conc 10 mmol/L Normal 9-18 [facility] Comment on above: Performed By: #### C BCDIF, PT, PTT, CMP #### [facility] [address] [address] AST enzyme act/vol 15 U/L Normal 13-35 [facility] Comment on above: Performed By: #### C BCDIF, PT, PTT, CMP #### [facility] [address] [place] [address] Bilirubin mass conc 0.5 mg/dL Normal 0.2-1.3 [facility] Comment on above: Performed By: #### C BCDIF, PT, PTT, CMP #### [facility] [address] [place] [address] Calcium mass conc 9.0 mg/dL Normal 8.5-10.2 [facility] Comment on above: Performed By: #### C BCDIF, PT, PTT, CMP #### [facility] [address] [place] [address] Chloride molar conc 99 mmol/L Normal 97-105 [facility] Comment on above: Performed By: #### C BCDIF, PT, PTT, CMP #### [facility] [address] [place] [address] CO2 molar conc 30 mmol/L Normal 22-30 [facility] Comment on above: Performed By: #### C BCDIF, PT, PTT, CMP #### [facility] [address] [place] [address] Creatinine mass conc 0.70 mg/dL Normal 0.58-0.96 [facility] Comment on above: Performed By: #### C BCDIF, PT, PTT, CMP #### [facility] [address] [place] [address] eGFR- Amer. >60 Normal [facility] Comment on above: Performed By: #### C BCDIF, PT, PTT, CMP #### [facility] [address] [place] [address] GFR/1.73 sq M predicted among non-blacks MDRD vol rate/area (S/P/Bld) mL/min/{1.73_m2} Normal [facility] Comment on above: Result Comment: eGFR (Estimated [...] BCDIF, PT, PTT, CMP #### [facility] [address] [place] [address] Glucose mass conc 76 mg/dL Normal 74-99 [facility] Comment on above: Result Comment: The [place] Diabetes Association (ADA) provides guidance for cutoff [...] Standards of Medical Care in Diabetes 2016, [place] Diabetes Association. Diabetes Care. 2016.39(Suppl 1). Performed By: #### C BCDIF, PT, PTT, CMP #### [facility] [address] [place] [address] Potassium molar conc 4.3 mmol/L Normal 3.7-5.1 [facility] Comment on above: Performed By: #### C BCDIF, PT, PTT, CMP #### [facility] [address] [place] [address] Protein mass conc 6.0 g/dL Low 6.3-8.0 [facility] Comment on above: Performed By: #### C BCDIF, PT, PTT, CMP #### [facility] [address] [place] [address] Sodium molar conc 139 mmol/L Normal 136-144 [facility] Comment on above: Performed By: #### C BCDIF, PT, PTT, CMP #### [facility] [address] [place] [address] Urea nitrogen mass conc 11 mg/dL Normal 7-21 M [facility] Comment on above: Performed By: #### C BCDIF, PT, PTT, CMP #### [facility] [address] [place] [address] Magnesiumon 12-03-2017 Magnesium mass conc 1.8 mg/dL Normal 1.7-2.3 [facility] Comment on above: Performed By: #### C BCDIF, PT, PTT, CMP #### [facility] [address] [facility] [phone] NM CARDIAC PERF STRESS/EXERC ISEon 12-03-2017 NM [...] later. See administered doses below. [facility] Date of service: 12/03/2017 11:12:42 AM Indication: [...] ST segment response. Stress complications: none. Final Life Sciences Director: JEREMIAS Transcribe Date/Time: Dec 03 2017 11:12A Dictated by : JEVON SHERMAN MD This examination was interpreted and the report reviewed and electronically signed by: JEVON SHERMAN MD on Dec 03 2017 5:11PM EST [id number] [facility] NUCLEAR STRESS LEXISCAN (CAR D)on 12-03-2017 NUCLEAR STRESS LEXISCAN (CARD) NAME : TRENTON JACKSON PID : [id number] : 1970 Gender : Female Race : ORD : [id number] Procedure Date : Dec 03 2017 12:15:58 Edit Date : Dec 17 2017 14:02:26 Conclusions:PLEASE REFER TO IMAGING SECTION IN [facility] FOR COMPLETE INTERPRETATION OF STRESS [...] Protocol Test Reason : Chest Pain Location :[id number] Overread By : JEVON SHERMAN M.D. Edited By : Violet Mcnulty Referred By : , [facility] NUCLEAR STRESS TEST EXERCISE (CARD)on 12-03-2017 NUCLEAR STRESS TEST EXERCISE (CARD) NAME : TRENTON JACKSON PID : [id number] : 1970 Gender : Female Race : ORD : [id number] Procedure Date : Dec 03 2017 11:56:57 Edit Date : Dec 17 2017 14:02:19 Conclusions:PLEASE REFER TO IMAGING SECTION IN [facility] FOR COMPLETE INTERPRETATION OF STRESS [...] Treadmill Test Reason : Chest Pain Location :[id number] Overread By : JEVON SHERMAN M.D. Edited By : Violet Mcnulty Referred By : , Acquired [facility] NURSING PROGon 12-03-2017 Protein mass conc HNO ID: [id number] Author: Barb AgudeloRn) CHAYITO Ramey Service: (none) Author Type: Registered Nurse Type: Nursing Progress Note Filed: 12/03/2017 9:59 PM Note Text: Nursing Progress Note Patient Name: Trenton Jackson Patient Location: [id number] Daily Note: Namrata- Dr Nava updated on pt medication request and HS blood sugar. New orders received. This note was completed by: Barb Ramey RN [facility] Protein mass conc HNO ID: [id number] Author: Jazzmine (Rn) CHAYITO Galvan Service: Nursing Author Type: Registered Nurse Type: Nursing Progress Note Filed: 12/03/2017 6:59 PM Note Text: Nursing Progress Note Patient Name: Trenton Jackson Patient Location: [id number]/[id number] Daily Note: 0700: Assumed care of pt. [...] completed by: Jazzmine Galvan RN [facility] PROCEDUREon 12-03-2017 Protein mass conc HNO ID: [id number] Author: Jevon Sherman Service: Clinical Cardiology Author Type: Physician Type: Procedures Filed: 12/10/2017 1:16 AM Note Text: [facility]- Stress Test TRENTON JACKSON : 1970 AGE: 47 [id number] LOCATION: [address] ATTENDING PHYSICIAN: Dex Fernandez M.D. DATE OF [...] nuclear imaging. Jevon Sherman M.D. Cardiovascular Medicine [id number] Normal [facility] PROGRESSon 12-03-2017 Protein mass conc HNO ID: [id number] Author: Dex Handy Service: Hospital Medicine Author Type: Physician Type: Progress Notes Filed: 12/03/2017 9:03 PM Note Text: HOSPITAL MEDICINE PROGRESS NOTE Name: Trenton Jackson SERVICE DATE: 12/03/2017 SERVICE TIME: 8:36 PM LOCATION / ROOM: [facility]4/[id number] Hospital Medicine/Primary Attending: Dex Handy MD NIGHT COVERAGE BETWEEN 5.30P-7.30A Page [id number] ASSESSMENT AND PLAN Active Hospital Problems Diagnosis [...] Patient might need to be transferred to [facility] for further work up - [...] 2017 TIME: 8:36 PM Normal [facility] Sed Rate Westergrenon 2017 [facility] Unable to assay. No specimen received. Normal 0-20 [facility] Comment on above: Performed By: #### C BCDIF, PT, PTT, CMP #### [facility] Laboratory [address] [facility] [phone] C-Reactive Proteinon 018 CRP mass conc 0.2 mg/dL Normal <0.9 [facility] Comment on above: Performed By: #### C BCDIF, PT, PTT, CMP #### [facility] [address] [facility] [phone] CBCon 12-02-2017 Erythrocyte distribution width Ratio (RBC) 13.4 % Normal 11.5-15.0 [facility] Comment on above: Performed By: #### C BCDIF, PT, PTT, CMP #### [facility] Laboratory [address] [place] [address] Hematocrit Volume Fraction (Bld) 48.7 % High 36.0-46.0 [facility] Comment on above: Performed By: #### C BCDIF, PT, PTT, CMP #### [facility] [address] [facility] [phone] Hemoglobin mass conc (Bld) 16.9 g/dL High 11.5-15.5 [facility] Comment on above: Performed By: #### C BCDIF, PT, PTT, CMP #### [facility] [address] [phone] MCH Entitic mass (RBC) 27.6 pG Normal 26.0-34.0 [facility] Comment on above: Performed By: #### C BCDIF, PT, PTT, CMP #### [facility] Laboratory [address] [place], [place] [address] MCHC mass conc (RBC) 34.7 g/dL Normal 30.5-36.0 [facility] Comment on above: Performed By: #### C BCDIF, PT, PTT, CMP #### [facility] [address] [place] [address] MCV Entitic volume (RBC) 79.4 fL Low 80.0-100.0 [facility] Comment on above: Performed By: #### C BCDIF, PT, PTT, CMP #### [facility] [address] [place] [address] Platelet mean volume Entitic volume (Bld) 10.7 fL Normal 9.0-12.7 [facility] Comment on above: Performed By: #### C BCDIF, PT, PTT, CMP #### [facility] [address] [place] [address] Platelets #/vol (Bld) 215 10*3/uL Normal 150-400 [facility] Comment on above: Performed By: #### C BCDIF, PT, PTT, CMP #### [facility] [address] [place] [address] RBC #/vol (Bld) 6.13 10*6/uL High 3.90-5.20 [facility] [facility] Comment on above: Performed By: #### C BCDIF, PT, PTT, CMP #### [facility] [address] [place] [address] WBC #/vol (Bld) 12.44 10*3/uL High 3.70-11.00 [facility] Comment on above: Performed By: #### C BCDIF, PT, PTT, CMP #### [facility] [address] [place], [place] [phone] CONSULT PROGon 12-02-2017 Protein mass conc HNO ID: [id number] Author: Jevon Sherman Service: Clinical Cardiology Author [...] 4:49 PM PAGER/CONTACT #: Normal [facility] Comp Metabolic Panelon 12-02 Albumin mass conc 3.2 g/dL Low 3.9-4.9 [facility] Comment on above: Performed By: #### C BCDIF, PT, PTT, CMP #### [facility] [address] [place] [address] ALP enzyme act/vol 92 U/L Normal 32-117 [facility] Comment on above: Performed By: #### C BCDIF, PT, PTT, CMP #### [facility] [address] [place] [address] ALT enzyme act/vol 14 U/L Normal 7-38 [facility] Comment on above: Performed By: #### C BCDIF, PT, PTT, CMP #### [facility] [address] [place] [address] Anion gap molar conc 13 mmol/L Normal 9-18 [facility] Comment on above: Performed By: #### C BCDIF, PT, PTT, CMP #### [facility] [address] [place], [place] [phone] AST enzyme act/vol 23 U/L Normal 13-35 [facility] Comment on above: Result Comment: Resu lts may be falsely increased due to interference by hemolysis. Suggest reorder as clinically indicated. Performed By: #### C BCDIF, PT, PTT, CMP #### [facility] [address] [place] [address] Bilirubin mass conc 0.7 mg/dL Normal 0.2-1.3 [facility] Comment on above: Performed By: #### C BCDIF, PT, PTT, CMP #### [facility] [address] [place] [address] Calcium mass conc 9.2 mg/dL Normal 8.5-10.2 [facility] Comment on above: Performed By: #### C BCDIF, PT, PTT, CMP #### [facility] [address] [place] [address] Chloride molar conc 99 mmol/L Normal 97-105 [facility] Comment on above: Performed By: #### C BCDIF, PT, PTT, CMP #### [facility] [address] [place] [address] CO2 molar conc 23 mmol/L Normal 22-30 [facility] Comment on above: Performed By: #### C BCDIF, PT, PTT, CMP #### [facility] [address] [place] [address] Creatinine mass conc 0.61 mg/dL Normal 0.58-0.96 [facility] Comment on above: Performed By: #### C BCDIF, PT, PTT, CMP #### [facility] [address] [place] [address] eGFR- Amer. >60 Normal [facility] Comment on above: Performed By: #### C BCDIF, PT, PTT, CMP #### [facility] [address] [place] [address] GFR/1.73 sq M predicted among non-blacks MDRD vol rate/area (S/P/Bld) mL/min/{1.73_m2} Normal [facility] Comment on above: Result Comment: eGFR (Estimated [...] BCDIF, PT, PTT, CMP #### [facility] [address] [place] [address] Glucose mass conc 185 mg/dL High 74-99 [facility] Comment on above: Result Comment: The [place] Diabetes Association (ADA) provides guidance for cutoff [...] Standards of Medical Care in Diabetes 2016, [place] Diabetes Association. Diabetes Care. 2016.39(Suppl 1). Performed By: #### C BCDIF, PT, PTT, CMP #### [facility] [address] [place] [address] Potassium molar conc 4.8 mmol/L Normal 3.7-5.1 [facility] Comment on above: Performed By: #### C BCDIF, PT, PTT, CMP #### [facility] [address] [place], [place] [phone] Protein mass conc 6.2 g/dL Low 6.3-8.0 [facility] Comment on above: Performed By: #### C BCDIF, PT, PTT, CMP #### [facility] [address] [place], [place] [phone] Sodium molar conc 135 mmol/L Low 136-144 [facility] Comment on above: Performed By: #### C BCDIF, PT, PTT, CMP #### [facility] [address] [place] [address] Urea nitrogen mass conc 8 mg/dL Normal 7-21 [facility] Comment on above: Performed By: #### C BCDIF, PT, PTT, CMP #### [facility] [address] [place] [address] Magnesiumon 12-02-2017 Magnesium mass conc 1.9 mg/dL Normal 1.7-2.3 [facility] Comment on above: Performed By: #### C BCDIF, PT, PTT, CMP #### [facility] [address] [facility] [phone] NURSING PROGon 12-02-2017 Protein mass conc HNO ID: [id number] Author: Flora (Rn) Avery, RN Service: (none) Author Type: Registered Nurse Type: Nursing Progress Note Filed: 12/03/2017 4:25 AM Note Text: Nursing Progress Note Patient Name: Trenton Jackson Patient Location: [id number] Daily Note:2010-Pt on phone, requesting pain med, [...] note was completed by: Flora Varela, CHAYITO [facility] Protein mass conc HNO ID: [id number] Author: Sara AgudeloRn) Elizabeth, RN Service: Nursing Author Type: Registered Nurse Type: Nursing Progress Note Filed: 12/02/2017 6:26 PM Note Text: Nursing Progress Note Patient Name: Trenton Jackson Patient Location: [id number]- Daily Note:1555 - Assumed care of pt. [...] completed by: Sara Johnson RN [facility] Protein mass conc HNO ID: [id number] Author: Jonna (Rn) CHAYITO Boothe Service: Nursing Author Type: Registered Nurse Type: Nursing Progress Note Filed: 12/02/2017 2:09 PM Note Text: Nursing Progress Note Patient Name: Trenton Jackson Patient Location: [id number] Daily Note: 0715: Assumed care of patient. [...] completed by: Jonna Boothe RN [facility] Protein mass conc HNO ID: [id number] Author: Patricio Solano) CHAYITO Tate Service: Nursing Author Type: Registered Nurse Type: Nursing Progress Note Filed: 12/02/2017 4:59 AM Note Text: Nursing Progress Note Patient Name: Trenton Jackson Patient Location: [id number] Event(s) / Intervention Note: The patient was [...] completed by: Patricio Tate RN [facility] PROGRESSon 12-02-2017 Protein mass conc HNO ID: [id number] Author: Lisa Bocanegra Service: Hospital Medicine Author [...] 2156 -- 11/30/17 2200 pneumatic compression stockings (nc,oh) VTE Prophylaxis: VTE prophylaxis appropriate SIGNATURE: Lisa Bocanegra MD PATIENT NAME: Trenton Jackson DATE: December 02, 2017 TIME: 1:07 PM PAGER: [phone] Normal [facility] Procalcitoninon 12-02-2017 Protein mass conc g/dL Normal <0.09 [facility] Comment on above: Result Comment: For a guided interpretation of test results, please visit the Change in Procalcitonin Calculator, [email or web address]. Performed By: #### C BCDIF, PT, PTT, CMP #### [facility] [address] [facility] [phone] Sed Rate Westergrenon 2017 Sed Rate Westergren Unable to assay. Spe cimen grossly hemolyzed. Specimen may have been stored or transported frozen. Normal 0-20 [facility] Comment on above: Result Comment: Acco unt Credited Called to RW [id number] 12.02.17 NB Performed By: #### C BCDIF, PT, PTT, CMP #### [facility] [address] [facility] [phone] CASE MGT INIT Ana 2017 CASE MGT INIT GAVIN HNO ID: [id number] Author: Bety Lozada (Rn) CHAYITO Dempsey Service: Case Management Author Type: Registered Nurse Type: Care Mgt Initial Assessment Filed: 12/01/2017 9:52 AM Note Text: CARE MANAGEMENT: ASSESSMENT AND DISCHARGE PLAN SERVICE DATE: 12/01/2017 SERVICE TIME: 9:48 AM PRIMARY CARE PHYSICIAN: Uziel Conteh MD Confirmed. Likes am any day for follow ups. ADMISSION STATUS: Observation Needs Prior to Discharge: To Be Determined MEDICAL: Patient/Short Order Cook Stated Goals: To return home to life as it was Health Insurance: [facility] MEDICAID [facility] Issues Impacting Discharge Plan: DM, HTN Last Admission Date: none Is this Within the Past 30 days? No Advance Directive: Current Advance Directive: None Adhesive Bandage Making Operator Assisted with AD Completion: Yes Action: [...] None Has the Patient Been in a Shelter Facility in the Past 30 days? 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 Yes , uses [facility] Concerns: In the Last Month, Have [...] 01, 2017 TIME: 9:48 AM PAGER/CONTACT #: [phone] [facility] CONSULTon 12-01-2017 CONSULT HNO ID: [id number] Author: Jevon Sherman Service: Clinical Cardiology Author [...] associated with exertion. In the ER at [facility] yesterday she had no ischemic changes on ECG, NSR, and negative Tn. She has a history of DM, is an active smoker, and had an abnormal echocardiogram last year showing LVEF 30% with an LAD territory wall motion abnormality with a dyskinetic apex. She has not seen a fuel cell builder about this problem and was unaware of [...] 10:17 AM PAGER/CONTACT #: Normal [facility] Lipid Panel, Basicon 018 Cholesterol in HDL mass conc 31 mg/dL Low >39 [facility] Comment on above: Result Comment: 40-5 9 mg/dL, Acceptable >59 mg/dL, High: Negative risk factor for coronary heart disease <40 mg/dL, Low: Positive risk factor for coronary heart disease Performed By: #### C BCDIF, PT, PTT, CMP #### [facility] [address] [facility] [phone] Cholesterol in LDL mass conc 110 mg/dL High <100 [facility] Comment on above: Result Comment: <100 mg/dL, Optimal 100-129 mg/dL, Near optimal/above optimal 130-159 mg/dL, Borderline high 160-189 mg/dL, High >189 mg/dL, Very high Secondary prevention optimal LDL Cholesterol levels are recommended to be < 70 mg/dL Performed By: #### C BCDIF, PT, PTT, CMP #### [facility] [address] [facility] [phone] Cholesterol mass conc 177 mg/dL Normal <200 [facility] Comment on above: Result Comment: <200 mg/dL, Desirable 200-239 mg/dL, Borderline high >239 mg/dL, High Performed By: #### C BCDIF, PT, PTT, CMP #### [facility] [address] [facility] [phone] Fasting Time Unknown Normal [facility] Comment on above: Performed By: #### C BCDIF, PT, PTT, CMP #### [facility] [address] [place] [address] LDL:HDL Ratio 3.55 High <2.54 [facility] Comment on above: Result Comment: Refe cinda: 1. National Cholesterol Education Program ATP III Guideline At-A-Glance Quick Desk Reference: National Heart, Lung, and Blood [place]. National Institutes of Health. 2001: NIH Publication No. 01-3305. 2. An International Atherosclerosis Society position paper: global recommendations for the management of dyslipidemia: executive summary, Atherosclerosis. 2014: 232(2):410-413. Performed By: #### C BCDIF, PT, PTT, CMP #### [facility] [address] [place] [address] Non HDL Cholesterol 146 mg/dL High <130 [facility] Comment on above: Result Comment: <130 mg/dL, Optimal 130-159 mg/dL, Near optimal/above optimal 160-189 mg/dL, Borderline high 190-219 mg/dL, High >219 mg/dL, Very high Secondary prevention optimal non HDL Cholesterol levels are recommended to be < 100 mg/dL Performed By: #### C BCDIF, PT, PTT, CMP #### [facility] [address] [place] [address] TC:HDL Ratio 5.71 High <5.10 [facility] Comment on above: Performed By: #### C BCDIF, PT, PTT, CMP #### [facility] [address] [place] [address] Triglyceride mass conc 179 mg/dL High <150 [facility] Comment on above: Result Comment: <150 mg/dL, Normal 150-199 mg/dL, Borderline high 200-499 mg/dL, High >499 mg/dL, Very high Performed By: #### C BCDIF, PT, PTT, CMP #### [facility] [address] [place] [address] VLDL Cholesterol 36 mg/dL High <30 [facility] Comment on above: Performed By: #### C BCDIF, PT, PTT, CMP #### [facility] [address] [place] [address] NURSING PROGon 12-01-2017 Protein mass conc HNO ID: [id number] Author: Patricio AgudeloRn) Lea, CHAYITO Service: Nursing Author Type: Registered Nurse Type: Nursing Progress Note Filed: 12/02/2017 6:32 AM Note Text: Nursing Progress Note Patient Name: Trenton Jackson Patient Location: [id number] Daily Note: 1915: Assumed care of pt. [...] observed sweating profusely. Glucose 84, normally 200's. Randolph juice and johnson crackers given. Glucose up to 149. Pt feeling slightly better. Will continue to monitor. 0500: Pt observed sleeping. Unable to obtain oral or axillary temp to this point. Will obtain rectal temp. Call light within reach. This note was completed by: Patricio Tate, RN [facility] Protein mass conc HNO ID: [id number] Author: Jonna AgudeloRn) CHAYITO Boothe Service: Nursing Author Type: Registered Nurse Type: Nursing Progress Note Filed: 12/01/2017 5:58 PM Note Text: Nursing Progress Note Patient Name: Trenton Jackson Patient Location: [id number]- Daily Note: 0715: Assumed care of patient. [...] completed by: Jonna Boothe RN [facility] Protein mass conc HNO ID: [id number] Author: Patricio (Rn) CHAYITO Tate Service: Nursing Author Type: Registered Nurse Type: Nursing Progress Note Filed: 12/01/2017 5:01 AM Note Text: Nursing Progress Note Patient Name: Trenton Jackson Patient [facility]/[id number] Daily Note: 2200: Assumed care of pt. [...] completed by: Patricio Tate RN [facility] PROGRESSon 12-01-2017 Protein mass conc HNO ID: [id number] Author: Lisa Bocanegra Service: Hospital Medicine Author [...] December 01, 2017 TIME: 2:46 PM PAGER: [phone] Normal [facility] Troponin Ton 12-01-2017 Troponin T.cardiac mass conc ug/L Normal 0.000-0.[address] [place] [address] Comment on above: Performed By: #### T NT ####[facility] [phone] Troponin T.cardiac mass conc ug/L Normal 0.000-0.[address] [place] [address] Comment on above: Performed By: #### T NT ####[facility] [id number] [place] [phone] APTTon 11-30-2017 aPTT Coag time (Bld) 26.7 s Normal 23.0-32.4 [facility] Comment on above: Result [...] laboratory APTT reagent in use throughout the [facility]. Performed By: #### C BCDIF, PT, PTT, CMP #### [facility] [address] CBC and Differentialon 11-30 Abs Baso 0.05 k/uL Normal <0.11 [facility] Comment on above: Performed By: #### C BCDIF, PT, PTT, CMP #### [facility] [address] [place] [address] Abs Amador 0.56 k/uL Normal <0.87 [facility] Comment on above: Performed By: #### C BCDIF, PT, PTT, CMP #### [facility] [address] [place] [address] Abs Neut 5.45 k/uL Normal 1.45-7.50 [facility] Comment on above: Performed By: #### C BCDIF, PT, PTT, CMP #### [facility] [address] [place] [address] Basophils/100 WBC (Bld) 0.6 % Normal [facility] Comment on above: Performed By: #### C BCDIF, PT, PTT, CMP #### [facility] [address] [place] [address] Eosinophils #/vol (Bld) 0.13 10*3/uL Normal <0.46 [facility] Comment on above: Performed By: #### C BCDIF, PT, PTT, CMP #### [facility] [address] [place] [address] Eosinophils/100 WBC (Bld) 1.4 % Normal [facility] Comment on above: Performed By: #### C BCDIF, PT, PTT, CMP #### [facility] [address] [place] [address] Erythrocyte distribution width Ratio (RBC) 13.3 % Normal 11.5-15.0 [facility] Comment on above: Performed By: #### C BCDIF, PT, PTT, CMP #### [facility] [address] [place] [address] Hematocrit Volume Fraction (Bld) 46.8 % High 36.0-46.0 [facility] Comment on above: Performed By: #### C BCDIF, PT, PTT, CMP #### [facility] [address] [place], [place] [phone] Hemoglobin mass conc (Bld) 16.2 g/dL High 11.5-15.5 [facility] Comment on above: Performed By: #### C BCDIF, PT, PTT, CMP #### [facility] [address] [place] [address] Lymphocytes #/vol (Bld) 2.83 10*3/uL Normal 1.00-4.00 [facility] Comment on above: Performed By: #### C BCDIF, PT, PTT, CMP #### [facility] [address] [place] [address] Lymphocytes/100 WBC (Bld) 31.4 % Normal [facility] Comment on above: Performed By: #### C BCDIF, PT, PTT, CMP #### [facility] [address] [place] [address] MCH Entitic mass (RBC) 27.8 pG Normal 26.0-34.0 [facility] Comment on above: Performed By: #### C BCDIF, PT, PTT, CMP #### [facility] [address] [place] [address] MCHC mass conc (RBC) 34.6 g/dL Normal 30.5-36.0 [facility] Comment on above: Performed By: #### C BCDIF, PT, PTT, CMP #### [facility] [address] [place] [address] MCV Entitic volume (RBC) 80.4 fL Normal 80.0-100.0 [facility] Comment on above: Performed By: #### C BCDIF, PT, PTT, CMP #### [facility] [address] [place] [address] Monocytes/100 WBC (Bld) 6.2 % Normal [facility] Comment on above: Performed By: #### C BCDIF, PT, PTT, CMP #### [facility] [address] [place] [address] Neutrophils/100 WBC (Bld) 60.4 % Normal [facility] Comment on above: Performed By: #### C BCDIF, PT, PTT, CMP #### [facility] [address] [place] [address] Platelet mean volume Entitic volume (Bld) 9.9 fL Normal 9.0-12.7 [facility] Comment on above: Performed By: #### C BCDIF, PT, PTT, CMP #### [facility] [address] [place] [address] Platelets #/vol (Bld) 247 10*3/uL Normal 150-400 [facility] Comment on above: Performed By: #### C BCDIF, PT, PTT, CMP #### [facility] [address] [place] [address] RBC #/vol (Bld) 5.82 10*6/uL High 3.90-5.20 [facility] Comment on above: Performed By: #### C BCDIF, PT, PTT, CMP #### [facility] [address] [place] [address] WBC #/vol (Bld) 9.02 10*3/uL Normal 3.70-11.00 [facility] Comment on above: Performed By: #### C BCDIF, PT, PTT, CMP #### [facility] [address] [place] [address] CK, Total and CKMBon 018 CK enzyme act/vol 41 U/L Low 42-196 [facility] Comment on above: Performed By: #### N TBNP, CKCKMB #### [facility] [address] [place] [address] CK MB % CK MB % not reported with CK <100 U/L. Normal 0.0-4.0 [facility] Comment on above: Performed By: #### N TBNP, CKCKMB #### [facility] [address] [place] [address] MB 1.7 ng/mL Normal <4.3 [facility] Comment on above: Performed By: #### N TBNP, CKCKMB #### [facility] [address] [place] [address] Comp Metabolic Panelon 11-30 Albumin mass conc 3.5 g/dL Low 3.9-4.9 [facility] Comment on above: Performed By: #### C BCDIF, PT, PTT, CMP #### [facility] [address] [place] [address] ALP enzyme act/vol 97 U/L Normal 32-117 [facility] Comment on above: Performed By: #### C BCDIF, PT, PTT, CMP #### [facility] [address] [address] ALT enzyme act/vol 17 U/L Normal 7-38 [facility] Comment on above: Performed By: #### C BCDIF, PT, PTT, CMP #### [facility] [address] [address] Anion gap molar conc 12 mmol/L Normal 9-18 [facility] Comment on above: Performed By: #### C BCDIF, PT, PTT, CMP #### [facility] [address] [place] [address] AST enzyme act/vol 26 U/L Normal 13-35 [facility] Comment on above: Performed By: #### C BCDIF, PT, PTT, CMP #### [facility] [address] [place] [address] Bilirubin mass conc 0.7 mg/dL Normal 0.2-1.3 [facility] Comment on above: Performed By: #### C BCDIF, PT, PTT, CMP #### [facility] [address] [place] [address] Calcium mass conc 8.5 mg/dL Normal 8.5-10.2 [facility] Comment on above: Performed By: #### C BCDIF, PT, PTT, CMP #### [facility] [address] [place] [address] Chloride molar conc 102 mmol/L Normal 97-105 [facility] Comment on above: Performed By: #### C BCDIF, PT, PTT, CMP #### [facility] [address] [place] [address] CO2 molar conc 23 mmol/L Normal 22-30 [facility] Comment on above: Performed By: #### C BCDIF, PT, PTT, CMP #### [facility] [facility] [address] [address] Creatinine mass conc 0.61 mg/dL Normal 0.58-0.96 [facility] Comment on above: Performed By: #### C BCDIF, PT, PTT, CMP #### [facility] [address] [facility] [phone] eGFR- Amer. >60 Normal [facility] Comment on above: Performed By: #### C BCDIF, PT, PTT, CMP #### [facility] [address] [facility] [phone] GFR/1.73 sq M predicted among non-blacks MDRD vol rate/area (S/P/Bld) mL/min/{1.73_m2} Normal [facility] Comment on above: Result Comment: eGFR (Estimated [...] BCDIF, PT, PTT, CMP #### [facility] [address] [facility] [phone] Glucose mass conc 260 mg/dL High 74-99 [facility] Comment on above: Result Comment: The [place] Diabetes Association (ADA) provides guidance for cutoff [...] Standards of Medical Care in Diabetes 2016, [place] Diabetes Association. Diabetes Care. 2016.39(Suppl 1). Performed By: #### C BCDIF, PT, PTT, CMP #### [facility] [address] [facility] [phone] Potassium molar conc 4.1 mmol/L Normal 3.7-5.1 [facility] Comment on above: Performed By: #### C BCDIF, PT, PTT, CMP #### [facility] [address] [facility] [phone] Protein mass conc 6.5 g/dL Normal 6.3-8.0 [facility] Comment on above: Performed By: #### C BCDIF, PT, PTT, CMP #### [facility] [address] [facility] [phone] Sodium molar conc 137 mmol/L Normal 136-144 [facility] Comment on above: Performed By: #### C BCDIF, PT, PTT, CMP #### [facility] [address] [facility] [phone] Urea nitrogen mass conc 5 mg/dL Low 7-21 M [facility] Comment on above: Performed By: #### C BCDIF, PT, PTT, CMP #### [facility] [address] [facility] [phone] ED NOTEon 11-30-2017 ED NOTE HNO ID: [id number] Author: Sara Solano) CHAYITO Bryson Service: Nursing Author Type: Registered Nurse Type: ED Notes Filed: 11/30/2017 9:26 PM Note Text: Report called to Patricio on 3S Normal [facility] ED NOTE HNO ID: [id number] Author: Sara Solano) CHAYITO Bryson Service: Nursing Author Type: Registered Nurse Type: ED Notes Filed: 11/30/2017 7:18 PM Note Text: Pt reports no relief of chest pain with nitro. SBP 125 to 109. [facility] ED NOTE HNO ID: [id number] Author: Sara Solano) CHAYITO Bryson Service: Nursing Author Type: Registered Nurse Type: ED Notes Filed: 11/30/2017 6:45 PM Note Text: Pt presents to the ER tearful about being scared of chest pain she is having. Onset was 0200 this a.m. She was seen at [facility] ER earlier today and advised to be admitted for observation. Pt states she wanted to drive herself in after settling family arrangements. She indicates mid-sternal pain that is stabbing, aching, sharp, dull, and pressure all at the same time. She was given 4 baby ASA and morphine at [facility], per pt. Medic at the bedside to lab and line. [facility] ED NOTE HNO ID: [id number] Author: Evelyne AgudeloRn) CHAYITO Puga Service: (none) Author Type: Registered Nurse Type: ED Notes Filed: 11/30/2017 6:13 PM Note Text: Pt presents to ED with c/o chest pain. Pt explains she was seen at [facility] ED earlier today and Ed wanted to transfer her to [facility] for obs but refused at that time [facility] ED PROV NOTEon 11-30-2017 Protein mass conc HNO ID: [id number] Author: Rafy Guallpa) Mao ROBLEDO Service: (none) Author Type: Physician Biomedical Specialist Type: ED Provider Notes Filed: 11/30/2017 9:05 PM Note Text: ED Provider Note Patient Name: Trenton Jackson SERVICE DATE: 11/30/17 History Patient presents with: Chest Pain ca HPI: 47-year-old female with a history of diabetes, hyperlipidemia, hypertension, psychiatric disorder, diverticulitis, ejection fraction of 35 and 35% presents to the emergency department for evaluation of chest pain. The patient was in [facility] ED earlier and was seen and evaluated [...] Abs Lymph 2.83 1.00 - 4.00 k/uL Amador% 6.2 % Abs Amador 0.56 <0.87 k/uL Eosin% 1.4 % Abs [...] Other: No acute osseous abnormality is identified. Life Sciences Director: PSCB Transcribe Date/Time: Nov 30 2017 7:15P [...] of the patient and have reviewed the PA/SCREEN PRINTING INSPECTOR note. My jones findings include: History - Ms. Jackson is a 47 yo F w/ h/o HTN and hyperlipidemia and DM and smoking, likely DE (EF lower and ? Dyskinesis in LAD) w/out rx previously, now here w/ chest pain/dyspnea/LH/nausea, intermittently sweaty, nearly 24 hrs now. Went to [facility] trop initially ok, ECG NSST changes, advised [...] PM Rafy Rashid (Pa-C) Mao ROBLEDO 11/30/17 9874 Normal [facility] HISTORY PHYSICALon HISTORY PHYSICAL HNO ID: [id number] Author: Fercho Osborne Service: Hospital Medicine Author Type: Physician Type: HANDP Filed: 11/30/2017 10:37 PM Note Text: DEPARTMENT OF HOSPITAL MEDICINE HISTORY AND PHYSICAL EXAM SERVICE DATE: 11/30/2017 SERVICE TIME: 9:48 PM Primary Care Physician: Uziel Conteh MD NIGHT AND WEEKEND COVERAGE: Nights: Please contact pager [phone]. Subjective HPI 47 Y F with PMH of diabetes, hyperlipidemia, hypertension, anxiety, depression, H/O pericardial effusion, systolic dysfunction, EF of 35 and 35% in 03/20, presents to the ED for evaluation of chest pain. The patient was seen in [facility] ED earlier today and they wanted to [...] unremarkable Never Had stress test or [facility] Had abnormal ECHO in mar 2017 [...] 30, 2017 TIME: 9:48 PM PAGER/CONTACT #: [phone] [facility] HOSPon 11-30-2017 HOSP Patient:Olamide Jackson MRN: Height:5' [...] pain. Pt explains she was seen at [facility] ED earlier today and Ed wanted to transfer her to [facility] for obs but refused at that time [...] of chest pain. The patient was in [facility] ED earlier and was seen and evaluated [...] Abs Lymph 2.83 1.00 - 4.00 k/uL Amador% 6.2 % Abs Amador 0.56 <0.87 k/uL Eosin% 1.4 % Abs [...] Other: No acute osseous abnormality is identified. Life Sciences Director: PSCB Transcribe Date/Time: Nov 30 2017 7:15P [...] of the patient and have reviewed the PA/SCREEN PRINTING INSPECTOR note. My jones findings include: History - Ms. Jackson is a 47 yo F w/ h/o HTN and hyperlipidemia and DM and smoking, likely DE (EF lower and ? Dyskinesis in LAD) w/out rx previously, now here w/ chest pain/dyspnea/LH/nausea, intermittently sweaty, nearly 24 hrs now. Went to [facility] trop initially ok, ECG NSST changes, advised [...] 0200 this a.m. She was seen at [facility] ER earlier today and advised to be admitted for observation. Pt states she wanted to drive herself in after settling family arrangements. She indicates mid-sternal pain that is stabbing, aching, sharp, dull, and pressure all at the same time. She was given 4 baby ASA and morphine at [facility], per pt. Medic at the bedside to [...] AND WEEKEND COVERAGE: Nights: Please contact pager [phone]. Subjective HPI 47 Y F with PMH of diabetes, hyperlipidemia, hypertension, anxiety, depression, H/O pericardial effusion, systolic dysfunction, EF of 35 and 35% in 03/20, presents to the ED for evaluation of chest pain. The patient was seen in [facility] ED earlier today and they wanted to [...] unremarkable Never Had stress test or [facility] Had abnormal ECHO in mar 2017 [...] 30, 2017 TIME: 9:48 PM PAGER/CONTACT #: [phone] Patricio Tate RN, RN 12/01/2017 5:01 AM Addendum Nursing Progress Note Patient Name: Trenton Jackson Patient Location: [id number]/[id number] Daily Note: 2200: Assumed care of pt. [...] Note Patient Name: Trenton Jackson Patient Location: [id number]/[id number] Daily Note: 0715: Assumed care of patient. [...] Prior to Discharge: To Be Determined MEDICAL: Patient/Short Order Cook Stated Goals: To return home to life as it was Health Insurance: [employer] Health Issues Impacting Discharge Plan: DM, HTN Last Admission Date: none Is this Within the Past 30 days? No Advance Directive: Current Advance Directive: None Adhesive Bandage Making Operator Assisted with AD Completion: Yes Action: [...] None Has the Patient Been in a Shelter Facility in the Past 30 days? 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 Yes , uses [facility] Food Concerns: In the Last Month, Have [...] 01, 2017 TIME: 9:48 AM PAGER/CONTACT #: [phone] Jevon Sherman MD 12/01/2017 10:32 AM Signed [...] associated with exertion. In the ER at [facility] yesterday she had no ischemic changes on ECG, NSR, and negative Tn. She has a history of DM, is an active smoker, and had an abnormal echocardiogram last year showing LVEF 30% with an LAD territory wall motion abnormality with a dyskinetic apex. She has not seen a fuel cell builder about this problem and was unaware of [...] 11/30/176 -- 11/30/17 2200 pneumatic compression stockings (nc,oh) VTE Prophylaxis: VTE prophylaxis appropriate SIGNATURE: Lisa Bocanegra MD PATIENT NAME: Trenton Jackson DATE: December 01, 2017 TIME: 2:46 PM PAGER: [phone] Patricio Tate RN, RN 12/02/2017 6:32 AM Addendum Nursing Progress Note Patient Name: Trenton Jackson Patient Location[facility]0304/[id number] Daily Note: 1915: Assumed care of pt. [...] observed sweating profusely. Glucose 84, normally 200's. Randolph juice and johnson crackers given. Glucose up [...] Note Patient Name: Trenton Jackson Patient Location: [id number] Event(s) / Intervention Note: The patient was [...] Note Patient Name: Trenton Jackson Patient Location: [facility]4/[id number] Daily Note: 0715: Assumed care of patient. [...] December 02, 2017 TIME: 1:07 PM PAGER: [phone] Previous Version Sara Johnson, RN, RN 12/02/2017 6:26 PM Addendum Nursing Progress Note Patient Name: Trenton Jackson Patient Location: [address] [address]/[id number] Daily Note:1555 - Assumed care of pt. [...] Note Patient Name: Trenton Jackson Patient Location: [facility]4/[id number] Daily Note:2009-Pt on phone, requesting pain med, [...] CHAYITO López MD 12/03/2017 8:34 PM Unsigned Wort Extractor [facility]- Stress Test TRENTON JACKSON : 1970 AGE: 47 SEX: F ACCTNUM: [id number] HOSP [facility] [place] [facility] [place] [facility] LOCATION: [address] ATTENDING PHYSICIAN: Dex Fernandez M.D. DATE OF [...] nuclear imaging. Jevon Sherman M.D. Cardiovascular Medicine [id number] /[id number] Jazzmine Galvan, RN, RN 12/03/2017 6:59 PM Addendum Nursing Progress Note Patient Name: Trenton Jackson Patient Location: [facility]0304/[id number] Daily Note: 0700: Assumed care of pt. [...] 03, 2017 TIME: 11:44 AM PAGER/CONTACT #: [phone] Jevon Sherman MD 12/03/2017 5:30 PM Signed [...] 12/03/17 0605 12/02/17 0724 12/01/17 0755 11/30/17 2205 CK -- -- -- -- -- 41* [...] SERVICE TIME: 8:36 PM LOCATION / ROOM: [address] [address] [address] Hospital Medicine/Primary Attending: Dex Handy MD NIGHT COVERAGE BETWEEN 5.30P-7.30A Page [phone] ASSESSMENT AND PLAN Active Hospital Problems Diagnosis [...] Note Patient Name: Trenton Jackson Patient Location: [id number]/[id number] Daily Note: 2154- Dr Nava updated on [...] TIME: 11:14 AM The following are the [facility] Criteria for High Risk [...] desires. Bhumi Junior LPN Normal [facility] High Sens Troponin Ton 11-30 High Sensitivity THEO 9 ng/L Normal <12 [facility] Comment on above: Result [...] Performed By: #### H STNT ####[facility] [address] [place] [phone] High Sensitivity THEO 10 ng/L Normal <12 [facility] Comment on above: Result [...] By: #### H STNT #### [facility] Laboratory [address] [place] [phone] NT Pro BNPon 11-30-2017 Protein mass conc 517 pg/mL High <125 [facility] Comment on above: Performed By: #### N TBNP, CKCKMB #### [facility] [address] [phone] Protimeon 11-30-2017 Prothrombin time (PT) Coag time (PPP) 10.2 s Normal 9.7-13.0 [facility] Comment on above: Performed By: #### C BCDIF, PT, PTT, CMP #### [facility] [address] [facility] [phone] Prothrombin time (PT) Coag time (PPP) 1.0 s Normal 0.9-1.3 [facility] Comment on above: Result Comment: Charissa min K Antagonist (VKA) Therapeutic Range: INR 2 to 3 (Target INR of 2.5) Note: For patients treated with VKA drugs, such as warfarin, the [place] College of Chest Physicians 2012 Guideline recommends [...] Chest 2012, 141:7S-47S Sampson RA, et al. [facility] 2017, 70: 252-289 Performed By: #### C BCDIF, PT, PTT, CMP #### [facility] [address] [place] [address] XR CHEST 1V FRONTAL PORTon 0 11-30-2017 [...] Other: No acute osseous abnormality is identified. Life Sciences Director: PSCB Transcribe Date/Time: Nov 30 2017 7:15P Dictated by : BRAD BLAKE MD This examination was interpreted and the report reviewed and electronically signed by: BRAD BLAKE MD on Nov 30 2017 7:16PM EST [id number] Normal [facility] Influenza virus A and B and SARS-CoV-2 (COVID-19) Ag panel - Upper respiratory specim SARS-CoV-2 & FLU Antigen (Rapid) Influenzae A [facility] Work Phone: Vital Signs Date Time Vital Sign Value Performing Clinician Facility 02-11-2025 14:45-0400 Body temperature 97.8 [degF] Zohreh Mckeon AEROSPACE ENGINEER-C Work Phone: 9(081)679-890505 [address] 02-11-2025 14:45-0400 Diastolic blood pressure 68 mm[Hg] Zohreh Mckeon AEROSPACE ENGINEER-C Work Phone: 1(770)998-446085 [place] [address] 02-11-2025 14:45-0400 Heart rate 89 /min Zohreh Mckeon AEROSPACE ENGINEER-C Work Phone: 8(263)501-625485 [place] [address] 02-11-2025 14:45-0400 Respiratory rate 16 /min Zohreh Mckeon AEROSPACE ENGINEER-C Work Phone: 7(627)197-028485 [place] [address] 02-11-2025 14:45-0400 SaO2% (BldA) [Mass fraction] 100 % Zohreh Mckeon AEROSPACE ENGINEER-C Work Phone: 0(967)013-370905 [address] 02-11-2025 14:45-0400 Systolic blood pressure 137 mm[Hg] Zohreh Mckeon AEROSPACE ENGINEER-C Work Phone: 5(014)373-729385 [place] [address] 02-11-2025 04:42-0400 Body mass index (BMI) [Ratio] 29.7 kg/m2 Zohreh Mckeon AEROSPACE ENGINEER-C Work Phone: 4(537)758-440485 [place] [address] 02-11-2025 04:42-0400 Body weight 83.9 kg Zohreh Mckeon AEROSPACE ENGINEER-C Work Phone: 5(145)016-438685 [place] [address] 02-05-2025 02:09-0400 Inhaled oxygen flow rate 2 L/min Zohreh Mckeon AEROSPACE ENGINEER-C Work Phone: 0(946)219-641218 [place] [address] 01-30-2025 13:32-0400 Body height 167.64 cm Zohreh Mckeon AEROSPACE ENGINEER-C Work Phone: 0(247)792-990885 [place] [address] 01-29-2025 21:00-0400 Diastolic blood pressure 70 mm[Hg] Zohreh Mckeon AEROSPACE ENGINEER-C Work Phone: 6(349)756-031218 [place] [address] 01-29-2025 21:00-0400 Heart rate 70 /min Zohrehlurdes Mckeon AEROSPACE ENGINEER-C Work Phone: 8(277)534-117585 [place] [address] 01-29-2025 21:00-0400 Respiratory rate 14 /min Zohreh Mckeon AEROSPACE ENGINEER-C Work Phone: 5(031)179-548285 [place] [address] 01-29-2025 21:00-0400 SaO2% (BldA) [Mass fraction] 98 % Zohreh Mckeon AEROSPACE ENGINEER-C Work Phone: 5(616)059-818718 [place] [address] 01-29-2025 21:00-0400 Systolic blood pressure 164 mm[Hg] Zohreh Mckeon AEROSPACE ENGINEER-C Work Phone: 5(237)801-275818 [place] [address] 01-29-2025 19:33-0400 Body temperature 98 [degF] Zohreh Mckeon AEROSPACE ENGINEER-C Work Phone: 5(445)838-694018 [place] [address] 01-29-2025 15:40-0400 Body height 167.64 cm Zohreh Mckeon AEROSPACE ENGINEER-C Work Phone: 8(632)495-046918 [place] [address] 01-29-2025 15:40-0400 Body mass index (BMI) [Ratio] 26.9 kg/m2 Zohreh Mckeon AEROSPACE ENGINEER-C Work Phone: 7(060)101-244518 [place] [address] 01-29-2025 15:40-0400 Body weight 75.7 kg Zohreh Mckeon AEROSPACE ENGINEER-C Work Phone: 7(661)692-546685 [place] [address] 12-12-2024 18:17-0400 Body temperature 98.5 [degF] Zohreh Mckeon AEROSPACE ENGINEER-C Work Phone: 2(843)415-855685 [place] [address] 12-12-2024 18:17-0400 Diastolic blood pressure 91 mm[Hg] Zohreh Mckeon AEROSPACE ENGINEER-C Work Phone: 8(211)286-410918 [place] [address] 12-12-2024 18:17-0400 Heart rate 97 /min Zohreh Mckeon AEROSPACE ENGINEER-C Work Phone: 1(715)117-758218 [place] [address] 12-12-2024 18:17-0400 Respiratory rate 18 /min Zohreh Mckeon AEROSPACE ENGINEER-C Work Phone: 4(513)289-106085 [place] [address] 12-12-2024 18:17-0400 SaO2% (BldA) [Mass fraction] 98 % Zohreh Mckeon AEROSPACE ENGINEER-C Work Phone: 7(838)234-371818 [place] [address] 12-12-2024 18:17-0400 Systolic blood pressure 152 mm[Hg] Zohreh Mckeon AEROSPACE ENGINEER-C Work Phone: 7(624)429-006985 [place] [address] 12-12-2024 13:08-0400 Body height 167.64 cm Zohreh Mckeon AEROSPACE ENGINEER-C Work Phone: 3(584)940-196885 [place] [address] 09-29-2024 16:59-0400 Body temperature 97.7 [degF] [facility] Work Phone: 6(618)545-295185 [place] [address] 09-29-2024 16:59-0400 Diastolic blood pressure 80 mm[Hg] [facility] Work Phone: 2(818)762-585185 [place] [address] 09-29-2024 16:59-0400 Heart rate 133 /min [facility] Work Phone: 8(613)451-050718 [place] [address] 09-29-2024 16:59-0400 Respiratory rate 15 /min [facility] Work Phone: 1(430)784-236385 [place] [address] 09-29-2024 16:59-0400 SaO2% (BldA) [Mass fraction] 95 % [facility] Work Phone: 7(695)644-495085 [place] [address] 09-29-2024 16:59-0400 Systolic blood pressure 149 mm[Hg] [facility] Work Phone: 6(158)607-546685 [place] [address] 09-29-2024 10:16-0400 Body height 170.18 cm [facility] Work Phone: 9(208)802-066485 [place] [address] 09-29-2024 10:16-0400 Body mass index (BMI) [Ratio] 28 kg/m2 [facility] Work Phone: 3(342)807-212985 [place] [address] 09-29-2024 10:16-0400 Body weight 81.4 kg [facility] Work Phone: 7(812)410-660785 [place] [address] 09-21-2024 17:11-0400 Body temperature 97.9 [degF] [facility] Work Phone: 5(850)103-613385 [place] [address] 09-21-2024 17:11-0400 Diastolic blood pressure 102 mm[Hg] [facility] Work Phone: 9(917)831-041485 [place] [address] 09-21-2024 17:11-0400 Heart rate 110 /min [facility] Work Phone: 0(049)697-560485 [place] [address] 09-21-2024 17:11-0400 Respiratory rate 16 /min [facility] Work Phone: 8(477)922-932585 [place] [address] 09-21-2024 17:11-0400 SaO2% (BldA) [Mass fraction] 98 % [facility] Work Phone: 4(531)007-342685 [place] [address] 09-21-2024 17:11-0400 Systolic blood pressure 139 mm[Hg] [facility] Work Phone: 9(392)578-180885 [place] [address] 09-21-2024 12:16-0400 Body height 170.18 cm [facility] Work Phone: 0(922)611-278185 [place] [address] 09-21-2024 12:16-0400 Body mass index (BMI) [Ratio] 28.4 kg/m2 [facility] Work Phone: 2(766)830-342685 [place] [address] 09-21-2024 12:16-0400 Body weight 82.3 kg [facility] Work Phone: 7(828)825-837785 [place] [address] 09-16-2024 15:35-0400 Diastolic blood pressure 94 mm[Hg] [facility] Work Phone: 3(326)634-363985 [place] [address] 09-16-2024 15:35-0400 Heart rate 110 /min [facility] Work Phone: 6(703)441-228685 [place] [address] 09-16-2024 15:35-0400 SaO2% (BldA) [Mass fraction] 98 % [facility] Work Phone: 6(324)845-270185 [place] [address] 09-16-2024 15:35-0400 Systolic blood pressure 160 mm[Hg] [facility] Work Phone: 9(991)419-532085 [place] [address] 09-16-2024 14:31-0400 Body temperature 97.2 [degF] [facility] Work Phone: 2(506)898-940785 [place] [address] 09-16-2024 14:31-0400 Respiratory rate 18 /min [facility] Work Phone: 5(646)861-210885 [place] [address] 09-16-2024 03:10-0400 Body mass index (BMI) [Ratio] 28.7 kg/m2 [facility] Work Phone: 7(566)181-469085 [place] [address] 09-16-2024 03:10-0400 Body weight 83.1 kg [facility] Work Phone: 7(931)990-706285 [place] [address] 09-11-2024 10:56-0400 Body height 170.18 cm [facility] Work Phone: 3(815)064-510485 [place] [address] 09-07-2024 21:00-0400 Diastolic blood pressure 79 mm[Hg] [facility] Work Phone: 7(677)273-082385 [place] [address] 09-07-2024 21:00-0400 Heart rate 101 /min [facility] Work Phone: 6(529)936-978485 [place] [address] 09-07-2024 21:00-0400 Respiratory rate 10 /min [facility] Work Phone: 4(216)820-806385 [place] [address] 09-07-2024 21:00-0400 SaO2% (BldA) [Mass fraction] 99 % [facility] Work Phone: 8(350)319-961785 [place] [address] 09-07-2024 21:00-0400 Systolic blood pressure 143 mm[Hg] [facility] Work Phone: 1(781)572-417285 [place] [address] 09-07-2024 15:52-0400 Body height 170.18 cm [facility] Work Phone: 0(686)623-989285 [place] [address] 09-07-2024 15:52-0400 Body mass index (BMI) [Ratio] 26.9 kg/m2 [facility] Work Phone: 5(526)706-771885 [place] [address] 09-07-2024 15:52-0400 Body temperature 97.4 [degF] [facility] Work Phone: 9(803)167-857185 [place] [address] 09-07-2024 15:52-0400 Body weight 77.[address] [facility] Work Phone: 4(191)859-694585 [place] [address] 09-05-2024 15:24-0400 Body temperature 97.7 [degF] [facility] Work Phone: 2(658)569-601885 [place] [address] 09-05-2024 15:24-0400 Diastolic blood pressure 62 mm[Hg] [facility] Work Phone: 7(608)153-389885 [place] [address] 09-05-2024 15:24-0400 Heart rate 90 /min [facility] Work Phone: 2(120)946-543285 [place] [address] 09-05-2024 15:24-0400 Respiratory rate 15 /min [facility] Work Phone: 6(743)838-686185 [place] [address] 09-05-2024 15:24-0400 SaO2% (BldA) [Mass fraction] 96 % [facility] Work Phone: 2(261)803-059485 [place] [address] 09-05-2024 15:24-0400 Systolic blood pressure 100 mm[Hg] [facility] Work Phone: 7(002)440-557885 [place] [address] 09-05-2024 10:29-0400 Body height 170.18 cm [facility] Work Phone: 5(883)237-935385 [place] [address] 09-05-2024 10:29-0400 Body mass index (BMI) [Ratio] 27.2 kg/m2 [facility] Work Phone: 7(614)713-085585 [place] [address] 09-05-2024 10:29-0400 Body weight 78.9 kg [facility] Work Phone: 6(120)880-422185 [place] [address] 09-02-2024 12:46-0400 Body temperature 98 [degF] [facility] Work Phone: 6(989)676-456085 [place] [address] 09-02-2024 12:46-0400 Diastolic blood pressure 78 mm[Hg] [facility] Work Phone: 9(274)407-179485 [place] [address] 09-02-2024 12:46-0400 Heart rate 60 /min [facility] Work Phone: 1(947)049-356285 [place] [address] 09-02-2024 12:46-0400 Respiratory rate 13 /min [facility] Work Phone: 8(731)923-813585 [place] [address] 09-02-2024 12:46-0400 SaO2% (BldA) [Mass fraction] 95 % [facility] Work Phone: 5(337)509-134685 [place] [address] 09-02-2024 12:46-0400 Systolic blood pressure 112 mm[Hg] [facility] Work Phone: 2(268)004-892585 [place] [address] 09-02-2024 12:00-0400 Heart rate 96 /min [facility] Work Phone: 9(272)429-936085 [place] [address] 09-02-2024 12:00-0400 Respiratory rate 17 /min [facility] Work Phone: 4(937)927-703785 [place] [address] 09-02-2024 12:00-0400 SaO2% (BldA) [Mass fraction] 97 % [facility] Work Phone: 7(863)785-795185 [place] [address] 09-02-2024 12:00-0400 Systolic blood pressure 144 mm[Hg] [facility] Work Phone: 4(814)109-765485 [place] [address] 09-02-2024 06:00-0400 Body mass index (BMI) [Ratio] 27.7 kg/m2 [facility] Work Phone: 3(148)440-920485 [place] [address] 09-02-2024 06:00-0400 Body weight 80.1 kg [facility] Work Phone: 5(851)512-360985 [place] [address] 08-30-2024 15:46-0400 Body height 170.18 cm [facility] Work Phone: 1(124)333-356785 [place] [address] 08-26-2024 20:00-0400 Diastolic blood pressure 69 mm[Hg] [facility] Work Phone: 0(743)209-136785 [place] [address] 08-26-2024 20:00-0400 Heart rate 98 /min [facility] Work Phone: 4(204)854-293185 [place] [address] 08-26-2024 20:00-0400 Systolic blood pressure 129 mm[Hg] [facility] Work Phone: 5(737)744-982285 [place] [address] 08-26-2024 19:09-0400 Body temperature 98 [degF] [facility] Work Phone: 0(085)410-908385 [place] [address] 08-26-2024 19:09-0400 Respiratory rate 16 /min [facility] Work Phone: 3(887)697-583885 [place] [address] 08-26-2024 19:09-0400 SaO2% (BldA) [Mass fraction] 97 % [facility] Work Phone: 7(875)231-331285 [place] [address] 08-26-2024 10:08-0400 Body height 170.18 cm [facility] Work Phone: 2(044)301-746585 [place] [address] 08-26-2024 10:08-0400 Body mass index (BMI) [Ratio] 28.8 kg/m2 [facility] Work Phone: 8(757)469-275785 [place] [address] 08-26-2024 10:08-0400 Body weight 83.6 kg [facility] Work Phone: 7(630)875-376585 [place] [address] 08-01-2024 20:58-0500 Heart rate 101 /min [facility] Work Phone: 2(714)992-700185 [place] [address] 08-01-2024 20:58-0500 Respiratory rate 22 /min [facility] Work Phone: 3(800)059-531785 [place] [address] 08-01-2024 20:58-0500 SaO2% (BldA) [Mass fraction] 99 % [facility] Work Phone: 2(649)487-167585 [place] [address] 08-01-2024 19:00-0500 Diastolic blood pressure 76 mm[Hg] [facility] Work Phone: 7(819)707-369485 [place] [address] 08-01-2024 19:00-0500 Systolic blood pressure 134 mm[Hg] [facility] Work Phone: 1(285)212-500385 [place] [address] 08-01-2024 17:00-0500 Body temperature 98.4 [degF] [facility] Work Phone: 8(765)452-406885 [place] [address] 08-01-2024 13:46-0500 Body mass index (BMI) [Ratio] 27.9 kg/m2 [facility] Work Phone: 8(906)856-558985 [place] [address] 08-01-2024 13:46-0500 Body weight 80.9 kg [facility] Work Phone: 4(715)889-963185 [place] [address] 07-11-2024 12:40-0500 Body mass index (BMI) [Ratio] 26.6 kg/m2 [facility] Work Phone: 2(650)126-843285 [place] [address] 07-11-2024 12:40-0500 Body temperature 96 [degF] [facility] Work Phone: 2(483)725-579885 [place] [address] 07-11-2024 12:40-0500 Body weight 77.11 kg [facility] Work Phone: 2(876)241-305585 [place] [address] 07-11-2024 12:40-0500 Diastolic blood pressure 83 mm[Hg] [facility] Work Phone: 4(951)460-297685 [place] [address] 07-11-2024 12:40-0500 Heart rate 94 /min [facility] Work Phone: 6(308)779-876185 [place] [address] 07-11-2024 12:40-0500 Respiratory rate 16 /min [facility] Work Phone: 1(166)836-297385 [place] [address] 07-11-2024 12:40-0500 SaO2% (BldA) [Mass fraction] 98 % [facility] Work Phone: 4(966)784-217985 [place] [address] 07-11-2024 12:40-0500 Systolic blood pressure 154 mm[Hg] [facility] Work Phone: 5(734)192-104785 [place] [address] 07-10-2024 12:46-0500 Body temperature 96.4 [degF] [facility] Work Phone: 7(084)316-435085 [place] [address] 07-10-2024 12:46-0500 Diastolic blood pressure 63 mm[Hg] [facility] Work Phone: 5(383)099-953485 [place] [address] 07-10-2024 12:46-0500 Heart rate 91 /min [facility] Work Phone: 6(234)919-691685 [place] [address] 07-10-2024 12:46-0500 Respiratory rate 16 /min [facility] Work Phone: 4(087)333-511585 [place] [address] 07-10-2024 12:46-0500 SaO2% (BldA) [Mass fraction] 97 % [facility] Work Phone: 8(673)075-483585 [place] [address] 07-10-2024 12:46-0500 Systolic blood pressure 118 mm[Hg] [facility] Work Phone: 5(058)547-784885 [place] [address] 07-07-2024 12:29-0500 Body temperature 97 [degF] [facility] Work Phone: 3(040)198-984585 [place] [address] 07-07-2024 12:29-0500 Diastolic blood pressure 59 mm[Hg] [facility] Work Phone: 1(025)924-172685 [place] [address] 07-07-2024 12:29-0500 Heart rate 65 /min [facility] Work Phone: 1(700)129-533585 [place] [address] 07-07-2024 12:29-0500 Respiratory rate 16 /min [facility] Work Phone: 4(748)259-574485 [place] [address] 07-07-2024 12:29-0500 SaO2% (BldA) [Mass fraction] 99 % [facility] Work Phone: 9(309)523-349185 [place] [address] 07-07-2024 12:29-0500 Systolic blood pressure 107 mm[Hg] [facility] Work Phone: 3(013)427-767185 [place] [address] 07-05-2024 11:27-0500 Body temperature 95.9 [degF] [facility] Work Phone: 7(793)263-998385 [place] [address] 07-05-2024 11:27-0500 Diastolic blood pressure 83 mm[Hg] [facility] Work Phone: 0(612)487-161885 [place] [address] 07-05-2024 11:27-0500 Heart rate 96 /min [facility] Work Phone: 2(748)760-480785 [place] [address] 07-05-2024 11:27-0500 Respiratory rate 16 /min [facility] Work Phone: 8(166)080-095085 [place] [address] 07-05-2024 11:27-0500 SaO2% (BldA) [Mass fraction] 94 % [facility] Work Phone: 2(185)499-772885 [place] [address] 07-05-2024 11:27-0500 Systolic blood pressure 142 mm[Hg] [facility] Work Phone: 4(886)052-539785 [place] [address] 07-04-2024 12:57-0500 Body mass index (BMI) [Ratio] 26.6 kg/m2 [facility] Work Phone: 5(686)594-041285 [place] [address] 07-04-2024 12:57-0500 Body temperature 96.5 [degF] [facility] Work Phone: 4(327)483-897185 [place] [address] 07-04-2024 12:57-0500 Body weight 77.11 kg [facility] Work Phone: 9(635)925-581485 [place] [address] 07-04-2024 12:57-0500 Diastolic blood pressure 69 mm[Hg] [facility] Work Phone: 6(601)010-058885 [place] [address] 07-04-2024 12:57-0500 Heart rate 97 /min [facility] Work Phone: 4(395)911-952985 [place] [address] 07-04-2024 12:57-0500 Respiratory rate 16 /min [facility] Work Phone: 2(451)768-164485 [place] [address] 07-04-2024 12:57-0500 SaO2% (BldA) [Mass fraction] 100 % [facility] Work Phone: 3(484)351-923285 [place] [address] 07-04-2024 12:57-0500 Systolic blood pressure 128 mm[Hg] [facility] Work Phone: 0(287)536-591985 [place] [address] 07-03-2024 13:17-0500 Body temperature 97.3 [degF] [facility] Work Phone: 7(710)466-650585 [place] [address] 07-03-2024 13:17-0500 Diastolic blood pressure 57 mm[Hg] [facility] Work Phone: 3(899)144-878385 [place] [address] 07-03-2024 13:17-0500 Heart rate 85 /min [facility] Work Phone: 7(625)624-443985 [place] [address] 07-03-2024 13:17-0500 Respiratory rate 18 /min [facility] Work Phone: [facility] 07-03-2024 13:17-0500 SaO2% (BldA) [Mass fraction] 100 % [facility] Work Phone: [facility] 07-03-2024 13:17-0500 Systolic blood pressure 107 mm[Hg] [facility] Work Phone: [facility] 07-03-2024 03:57-0500 Body mass index (BMI) [Ratio] 28.8 kg/m2 [facility] Work Phone: [facility] 07-03-2024 03:57-0500 Body weight 83.3 kg [facility] Work Phone: [facility] 05-24-2024 14:00-0500 Diastolic Blood Pressure Non-Invasive 69 mm[Hg] DR RAYMUNDO VIEIRA DO [facility] 05-24-2024 14:00-0500 Heart rate 91 /min DR RAYMUNDO VIEIRA DO [facility] 05-24-2024 14:00-0500 Respiratory rate 16 /min DR RAYMUNDO VIEIRA DO [facility] 05-24-2024 14:00-0500 Systolic Blood Pressure Non-Invasive 113 mm[Hg] DR RAYMUNDO VIEIRA DO [facility] 05-23-2024 22:49-0500 Diastolic Blood Pressure Non-Invasive 72 mm[Hg] DR RAYMUNDO VIEIRA DO [facility] 05-23-2024 22:49-0500 Heart rate 93 /min DR RAYMUNDO VIEIRA DO [facility] 05-23-2024 22:49-0500 Respiratory rate 18 /min DR RAYMUNDO VIEIRA DO [facility] 05-23-2024 22:49-0500 Systolic Blood Pressure Non-Invasive 124 mm[Hg] DR RAYMUNDO VIEIRA DO [facility] 05-23-2024 20:03-0500 Diastolic Blood Pressure Non-Invasive 59 mm[Hg] DR RAYMUNDO VIEIRA DO [facility] 05-23-2024 20:03-0500 Heart rate 91 /min DR RAYMUNDO VIEIRA DO [facility] 05-23-2024 20:03-0500 Mean blood pressure 67 mm[Hg] DR RAYMUNDO VIEIRA DO [facility] 05-23-2024 20:03-0500 Respiratory rate 14 /min DR RAYMUNDO VIEIRA DO [facility] 05-23-2024 20:03-0500 Systolic Blood Pressure Non-Invasive 83 mm[Hg] DR RAYMUNDO VIEIRA DO [facility] 05-23-2024 19:34-05[address] Cuff Size DR RAYMUNDO VIEIRA DO [facility] 05-23-2024 19:34-[address] RAYMUNDO VIEIRA DO [facility] 05-23-2024 19:34-[address] RAYMUNDO VIEIRA DO [facility] 05-23-2024 19:34-0500 Body temperature 98.06 [degF] DR RAYMUNDO VIEIRA DO [facility] 05-23-2024 19:34-0500 Heart rate 95 /min DR RAYMUNDO VIEIRA DO [facility] 04-29-2024 13:31-0500 Body temperature 98.2 [degF] [facility] Work Phone: 2(827)360-491318 [place] [address] 04-29-2024 13:31-0500 Diastolic blood pressure 70 mm[Hg] [facility] Work Phone: 6(266)984-940185 [place] [address] 04-29-2024 13:31-0500 Heart rate 89 /min [facility] Work Phone: 7(945)251-018485 [place] [address] 04-29-2024 13:31-0500 Respiratory rate 16 /min [facility] Work Phone: 1(674)918-500818 [place] [address] 04-29-2024 13:31-0500 SaO2% (BldA) [Mass fraction] 97 % [facility] Work Phone: 1(363)950-289018 [place] [address] 04-29-2024 13:31-0500 Systolic blood pressure 121 mm[Hg] [facility] Work Phone: 2(974)765-958985 [place] [address] 04-29-2024 10:26-0500 Body weight 73.66 kg [facility] Work Phone: 4(993)846-244818 [place] [address] 04-25-2024 16:40-0500 Body mass index (BMI) [Ratio] 25.4 kg/m2 [facility] Work Phone: 7(895)703-495718 [place] [address] 10-15-2023 17:28-0400 Body temperature 97.2 [degF] [facility] 10-15-2023 17:28-0400 Diastolic blood pressure 75 mm[Hg] [facility] 10-15-2023 17:28-0400 Heart rate 87 /min [facility] 10-15-2023 17:28-0400 Respiratory rate 17 /min [facility] 10-15-2023 17:28-0400 SaO2% (BldA) [Mass fraction] 98 % [facility] 10-15-2023 17:28-0400 Systolic blood pressure 131 mm[Hg] [facility] 10-15-2023 15:35-0400 Body height 170.18 cm [facility] 09-02-2023 09:42-0400 Body temperature 97.6 [degF] [facility] Work Phone: 3(001)406-246785 [place] [address] 09-02-2023 09:42-0400 Diastolic blood pressure 76 mm[Hg] [facility] Work Phone: 9(535)872-989985 [place] [address] 09-02-2023 09:42-0400 Heart rate 101 /min [facility] Work Phone: 7(599)761-103085 [place] [address] 09-02-2023 09:42-0400 Respiratory rate 16 /min [facility] Work Phone: 9(037)959-600285 [place] [address] 09-02-2023 09:42-0400 SaO2% (BldA) [Mass fraction] 95 % [facility] Work Phone: 3(611)507-171985 [place] [address] 09-02-2023 09:42-0400 Systolic blood pressure 148 mm[Hg] [facility] Work Phone: 8(113)752-924785 [place] [address] 09-02-2023 07:42-0400 Body height 170.18 cm [facility] Work Phone: 9(671)049-197485 [place] [address] 09-02-2023 07:42-0400 Body mass index (BMI) [Ratio] 29.7 kg/m2 [facility] Work Phone: 3(923)483-903885 [place] [address] 09-02-2023 07:42-0400 Body weight 86.1 kg [facility] Work Phone: 4(556)490-867685 [place] [address] 09-02-2023 07:42-0400 Inhaled oxygen flow rate 2 L/min [facility] Work Phone: 1(790)281-292885 [place] [address] 06-19-2023 09:59-0500 Respiratory rate 14 /min [facility] Work Phone: 7(742)401-026485 [place] [address] 06-19-2023 09:12-0500 Body mass index (BMI) [Ratio] 26.2 kg/m2 [facility] Work Phone: 8(126)784-194085 [place] [address] 06-19-2023 09:12-0500 Body weight 75.7 kg [facility] Work Phone: 0(396)690-928985 [place] [address] 06-19-2023 09:03-0500 Body height 170.18 cm [facility] Work Phone: 3(896)212-164485 [place] [address] 06-19-2023 09:03-0500 Body temperature 95 [degF] [facility] Work Phone: 4(753)917-408685 [place] [address] 06-19-2023 09:03-0500 Diastolic blood pressure 94 mm[Hg] [facility] Work Phone: 3(579)517-318085 [place] [address] 06-19-2023 09:03-0500 Heart rate 102 /min [facility] Work Phone: 2(765)800-150785 [place] [address] 06-19-2023 09:03-0500 SaO2% (BldA) [Mass fraction] 97 % [facility] Work Phone: 8(206)452-811385 [place] [address] 06-19-2023 09:03-0500 Systolic blood pressure 142 mm[Hg] [facility] Work Phone: 5(958)011-367785 [place] [address] 06-16-2023 11:30-0500 SaO2% (BldA) [Mass fraction] 93 % [facility] Work Phone: 3(271)803-305285 [place] [address] 06-16-2023 07:49-0500 Body temperature 97.6 [degF] [facility] Work Phone: 3(504)651-074085 [place] [address] 06-16-2023 07:49-0500 Diastolic blood pressure 80 mm[Hg] [facility] Work Phone: 2(906)451-465885 [place] [address] 06-16-2023 07:49-0500 Heart rate 79 /min [facility] Work Phone: 7(181)490-458885 [place] [address] 06-16-2023 07:49-0500 Respiratory rate 18 /min [facility] Work Phone: 5(915)291-468585 [place] [address] 06-16-2023 07:49-0500 Systolic blood pressure 119 mm[Hg] [facility] Work Phone: 9(177)683-404885 [place] [address] 06-15-2023 20:35-0500 Inhaled oxygen flow rate 2 L/min [facility] Work Phone: 4(658)910-737585 [place] [address] 06-13-2023 14:21-0500 Body height 170.18 cm [facility] Work Phone: 6(192)931-938285 [place] [address] 06-13-2023 14:21-0500 Body weight 79.42 kg [facility] Work Phone: 4(535)994-644485 [place] [address] 06-13-2023 03:00-0500 Body mass index (BMI) [Ratio] 27.4 kg/m2 [facility] Work Phone: 4(016)744-991185 [place] [address] 06-13-2023 01:36-0500 Diastolic blood pressure 92 mm[Hg] [facility] Work Phone: 6(518)690-283585 [place] [address] 06-13-2023 01:36-0500 Heart rate 98 /min [facility] Work Phone: 3(293)268-845685 [place] [address] 06-13-2023 01:36-0500 Respiratory rate 15 /min [facility] Work Phone: 6(934)019-774385 [place] [address] 06-13-2023 01:36-0500 SaO2% (BldA) [Mass fraction] 95 % [facility] Work Phone: 3(838)062-896685 [place] [address] 06-13-2023 01:36-0500 Systolic blood pressure 131 mm[Hg] [facility] Work Phone: 6(992)543-323785 [place] [address] 06-12-2023 23:01-0500 Inhaled oxygen flow rate 4 L/min [facility] Work Phone: 6(469)394-770185 [place] [address] 06-12-2023 19:59-0500 Body temperature 98.9 [degF] [facility] Work Phone: 8(731)733-906885 [place] [address] 05-26-2023 12:07-0500 Diastolic blood pressure 74 mm[Hg] [facility] Work Phone: 4(923)312-700985 [place] [address] 05-26-2023 12:07-0500 Heart rate 82 /min [facility] Work Phone: 0(023)528-453285 [place] [address] 05-26-2023 12:07-0500 Respiratory rate 16 /min [facility] Work Phone: 1(108)373-020085 [place] [address] 05-26-2023 12:07-0500 SaO2% (BldA) [Mass fraction] 96 % [facility] Work Phone: 4(864)052-869285 [place] [address] 05-26-2023 12:07-0500 Systolic blood pressure 138 mm[Hg] [facility] Work Phone: 9(419)791-477485 [place] [address] 05-26-2023 10:44-0500 Body mass index (BMI) [Ratio] 26.3 kg/m2 [facility] Work Phone: 5(683)672-707585 [place] [address] 05-26-2023 10:44-0500 Body weight 76.[address] [facility] Work Phone: 4(786)073-765485 [place] [address] 05-26-2023 09:50-0500 Body temperature 96.6 [degF] [facility] Work Phone: 0(348)867-504585 [place] [address] 05-22-2023 16:02-0500 Respiratory rate 16 /min [facility] Work Phone: 9(913)264-287885 [place] [address] 05-22-2023 14:33-0500 Body mass index (BMI) [Ratio] 26.6 kg/m2 [facility] Work Phone: 7(803)201-692185 [place] [address] 05-22-2023 14:33-0500 Body weight 77.2 kg [facility] Work Phone: 1(466)003-236385 [place] [address] 05-22-2023 13:51-0500 Body height 170.18 cm [facility] Work Phone: 3(558)718-682785 [place] [address] 05-22-2023 13:51-0500 Body temperature 97.3 [degF] [facility] Work Phone: 5(210)005-395785 [place] [address] 05-22-2023 13:51-0500 Diastolic blood pressure 82 mm[Hg] [facility] Work Phone: 5(744)719-232685 [place] [address] 05-22-2023 13:51-0500 Heart rate 107 /min [facility] Work Phone: 2(039)618-779085 [place] [address] 05-22-2023 13:51-0500 SaO2% (BldA) [Mass fraction] 98 % [facility] Work Phone: 4(806)806-724685 [place] [address] 05-22-2023 13:51-0500 Systolic blood pressure 150 mm[Hg] [facility] Work Phone: 3(422)682-584385 [place] [address] 05-07-2023 16:50-0500 Body temperature 98.3 [degF] [facility] Work Phone: 3(426)410-528185 [place] [address] 05-07-2023 16:50-0500 Diastolic blood pressure 68 mm[Hg] [facility] Work Phone: 7(091)479-299185 [place] [address] 05-07-2023 16:50-0500 Heart rate 84 /min [facility] Work Phone: 8(647)045-522085 [place] [address] 05-07-2023 16:50-0500 Respiratory rate 16 /min [facility] Work Phone: 8(614)437-654085 [place] [address] 05-07-2023 16:50-0500 SaO2% (BldA) [Mass fraction] 99 % [facility] Work Phone: 9(889)509-543085 [address] [place] [address] 05-07-2023 16:50-0500 Systolic blood pressure 101 mm[Hg] [facility] Work Phone: 3(382)029-220185 [place] [address] 05-07-2023 12:30-0500 Body temperature 98.4 [degF] [facility] Work Phone: 2(354)934-640685 [place] [address] 05-07-2023 12:30-0500 Diastolic blood pressure 63 mm[Hg] [facility] Work Phone: 4(788)981-291185 [place] [address] 05-07-2023 12:30-0500 Heart rate 85 /min [facility] Work Phone: 6(744)783-384085 [place] [address] 05-07-2023 12:30-0500 Respiratory rate 16 /min [facility] Work Phone: 7(784)643-301085 [place] [address] 05-07-2023 12:30-0500 SaO2% (BldA) [Mass fraction] 92 % [facility] Work Phone: 8(421)097-515185 [place] [address] 05-07-2023 12:30-0500 Systolic blood pressure 94 mm[Hg] [facility] Work Phone: 0(515)497-087685 [place] [address] 05-07-2023 06:00-0500 Body mass index (BMI) [Ratio] 26.4 kg/m2 [facility] Work Phone: 5(894)160-235185 [place] [address] 05-07-2023 06:00-0500 Body weight 76.5 kg [facility] Work Phone: 5(153)382-244185 [place] [address] 05-05-2023 07:53-0500 Inhaled oxygen flow rate 5 L/min [facility] Work Phone: 4(869)888-193885 [place] [address] 05-04-2023 15:22-0500 Body height 170.18 cm [facility] Work Phone: 3(645)635-486585 [place] [address] 05-03-2023 17:00-0500 Heart rate 110 /min [facility] Work Phone: 7(588)544-333585 [place] [address] 05-03-2023 17:00-0500 Inhaled oxygen flow rate 5 L/min [facility] Work Phone: 7(937)349-661685 [place] [address] 05-03-2023 17:00-0500 Respiratory rate 16 /min [facility] Work Phone: 7(647)271-891685 [place] [address] 05-03-2023 17:00-0500 SaO2% (BldA) [Mass fraction] 93 % [facility] Work Phone: 1(984)484-326885 [place] [address] 05-03-2023 16:23-0500 Diastolic blood pressure 84 mm[Hg] [facility] Work Phone: 7(228)536-674885 [place] [address] 05-03-2023 16:23-0500 Systolic blood pressure 134 mm[Hg] [facility] Work Phone: 3(161)415-693185 [place] [address] 05-03-2023 13:37-0500 Body height 170.18 cm [facility] Work Phone: 4(363)727-139485 [place] [address] 05-03-2023 13:37-0500 Body mass index (BMI) [Ratio] 26.6 kg/m2 [facility] Work Phone: 4(846)179-422485 [place] [address] 05-03-2023 13:37-0500 Body temperature 97.1 [degF] [facility] Work Phone: 4(648)872-984785 [place] [address] 05-03-2023 13:37-0500 Body weight 77.1 kg [facility] Work Phone: 4(267)762-769585 [place] [address] 04-18-2023 14:40-0500 Body height 170.18 cm [facility] Work Phone: 0(958)834-928885 [place] [address] 04-18-2023 14:40-0500 Body mass index (BMI) [Ratio] 25.8 kg/m2 [facility] Work Phone: 6(786)625-628785 [place] [address] 04-18-2023 14:40-0500 Body weight 74.84 kg [facility] Work Phone: 9(255)427-655785 [place] [address] 04-18-2023 14:40-0500 Diastolic blood pressure 87 mm[Hg] [facility] Work Phone: 1(150)649-685385 [place] [address] 04-18-2023 14:40-0500 Heart rate 91 /min [facility] Work Phone: 9(377)880-930385 [place] [address] 04-18-2023 14:40-0500 Respiratory rate 17 /min [facility] Work Phone: 5(564)803-471285 [place] [address] 04-18-2023 14:40-0500 SaO2% (BldA) [Mass fraction] 98 % [facility] Work Phone: 4(751)434-398685 [place] [address] 04-18-2023 14:40-0500 Systolic blood pressure 138 mm[Hg] [facility] Work Phone: 8(767)812-276485 [place] [address] 03-22-2023 13:40-0400 Body height 170.18 cm [facility] Work Phone: 0(739)564-577385 [place] [address] 03-22-2023 13:40-0400 Body mass index (BMI) [Ratio] 25.5 kg/m2 [facility] Work Phone: 7(721)935-972285 [place] [address] 03-22-2023 13:40-0400 Body weight 73.93 kg [facility] Work Phone: 3(606)696-370085 [place] [address] 03-22-2023 13:40-0400 Diastolic blood pressure 77 mm[Hg] [facility] Work Phone: 3(982)444-665985 [place] [address] 03-22-2023 13:40-0400 Heart rate 89 /min [facility] Work Phone: 0(870)787-301785 [place] [address] 03-22-2023 13:40-0400 Respiratory rate 18 /min [facility] Work Phone: 0(211)625-244885 [place] [address] 03-22-2023 13:40-0400 SaO2% (BldA) [Mass fraction] 99 % [facility] Work Phone: 3(732)186-808885 [place] [address] 03-22-2023 13:40-0400 Systolic blood pressure 114 mm[Hg] [facility] Work Phone: 3(831)279-307585 [place] [address] 02-28-2023 11:12-0400 Body mass index (BMI) [Ratio] 24.9 kg/m2 [facility] Work Phone: 7(979)909-974785 [place] [address] 02-28-2023 11:12-0400 Body weight 72.12 kg [facility] Work Phone: 1(168)910-756385 [place] [address] 02-28-2023 11:12-0400 Diastolic blood pressure 74 mm[Hg] [facility] Work Phone: 1(736)808-460385 [place] [address] 02-28-2023 11:12-0400 Heart rate 103 /min [facility] Work Phone: 7(112)581-738685 [place] [address] 02-28-2023 11:12-0400 Respiratory rate 18 /min [facility] Work Phone: 2(724)835-774885 [place] [address] 02-28-2023 11:12-0400 Systolic blood pressure 109 mm[Hg] [facility] Work Phone: 2(842)325-142485 [place] [address] 02-03-2023 15:12-0400 SaO2% (BldA) [Mass fraction] 97 % [facility] Work Phone: 3(499)629-684885 [place] [address] 02-03-2023 14:58-0400 Body temperature 97 [degF] [facility] Work Phone: 5(546)231-691485 [place] [address] 02-03-2023 14:58-0400 Diastolic blood pressure 71 mm[Hg] [facility] Work Phone: 9(393)520-233085 [place] [address] 02-03-2023 14:58-0400 Heart rate 92 /min [facility] Work Phone: 6(985)874-190085 [place] [address] 02-03-2023 14:58-0400 Respiratory rate 18 /min [facility] Work Phone: 4(957)446-865185 [place] [address] 02-03-2023 14:58-0400 Systolic blood pressure 99 mm[Hg] [facility] Work Phone: 2(904)876-506385 [place] [address] 02-03-2023 13:19-0400 Body height 170.18 cm [facility] Work Phone: 7(370)054-639485 [place] [address] 02-03-2023 13:19-0400 Body weight 71.1 kg [facility] Work Phone: 3(125)444-740985 [place] [address] 02-03-2023 10:30-0400 Inhaled oxygen flow rate 2 L/min [facility] Work Phone: 6(253)320-845585 [place] [address] 02-03-2023 03:59-0400 Body mass index (BMI) [Ratio] 24.5 kg/m2 [facility] Work Phone: 8(334)607-526885 [place] [address] 02-02-2023 21:45-0400 Inhaled oxygen concentration 2 % [facility] Work Phone: 3(984)855-049985 [place] [address] 02-02-2023 17:59-0400 Heart rate 112 /min [facility] Work Phone: 5(481)851-408385 [place] [address] 02-02-2023 17:59-0400 Inhaled oxygen flow rate 2 L/min [facility] Work Phone: 8(351)761-748085 [place] [address] 02-02-2023 17:59-0400 Respiratory rate 18 /min [facility] Work Phone: 9(045)981-290885 [place] [address] 02-02-2023 17:59-0400 SaO2% (BldA) [Mass fraction] 95 % [facility] Work Phone: 5(654)391-748285 [place] [address] 02-02-2023 16:00-0400 Body temperature 97 [degF] [facility] Work Phone: 1(068)781-263585 [place] [address] 02-02-2023 16:00-0400 Diastolic blood pressure 97 mm[Hg] [facility] Work Phone: 2(921)549-228485 [place] [address] 02-02-2023 16:00-0400 Systolic blood pressure 134 mm[Hg] [facility] Work Phone: 0(275)592-025285 [place] [address] 02-02-2023 11:21-0400 Body height 167.64 cm [facility] Work Phone: 7(471)813-560385 [place] [address] 02-02-2023 11:21-0400 Body mass index (BMI) [Ratio] 27.1 kg/m2 [facility] Work Phone: 8(050)130-104785 [place] [address] 02-02-2023 11:21-0400 Body weight 76.2 kg [facility] Work Phone: 8(097)578-793285 [place] [address] 01-03-2023 11:42-0400 Body temperature 98 [degF] [facility] Work Phone: 5(564)729-359885 [place] [address] 01-03-2023 11:42-0400 Diastolic blood pressure 66 mm[Hg] [facility] Work Phone: 7(012)357-440385 [place] [address] 01-03-2023 11:42-0400 Heart rate 92 /min [facility] Work Phone: 9(633)564-080085 [place] [address] 01-03-2023 11:42-0400 Respiratory rate 15 /min [facility] Work Phone: 1(405)322-419385 [place] [address] 01-03-2023 11:42-0400 SaO2% (BldA) [Mass fraction] 100 % [facility] Work Phone: 4(354)841-416485 [place] [address] 01-03-2023 11:42-0400 Systolic blood pressure 101 mm[Hg] [facility] Work Phone: 7(952)814-167585 [place] [address] 01-03-2023 05:29-0400 Body mass index (BMI) [Ratio] 25.9 kg/m2 [facility] Work Phone: 3(119)749-183785 [place] [address] 01-03-2023 05:29-0400 Body weight 73.1 kg [facility] Work Phone: 5(436)803-309585 [place] [address] 01-02-2023 12:06-0400 Body height 167.64 cm [facility] Work Phone: 3(294)190-262685 [place] [address] 01-02-2023 08:20-0400 Inhaled oxygen flow rate 2 L/min [facility] Work Phone: 6(063)568-641185 [place] [address] 01-01-2023 16:36-0400 Body temperature 98.2 [degF] [facility] Work Phone: 8(808)129-257085 [place] [address] 01-01-2023 16:36-0400 Diastolic blood pressure 96 mm[Hg] [facility] Work Phone: 6(592)549-973385 [place] [address] 01-01-2023 16:36-0400 Heart rate 105 /min [facility] Work Phone: 6(693)649-581285 [place] [address] 01-01-2023 16:36-0400 Inhaled oxygen flow rate 2 L/min [facility] Work Phone: 1(395)458-191085 [place] [address] 01-01-2023 16:36-0400 Respiratory rate 18 /min [facility] Work Phone: 8(638)678-853185 [place] [address] 01-01-2023 16:36-0400 SaO2% (BldA) [Mass fraction] 98 % [facility] Work Phone: 7(622)754-137985 [place] [address] 01-01-2023 16:36-0400 Systolic blood pressure 140 mm[Hg] [facility] Work Phone: 7(751)038-390985 [place] [address] 01-01-2023 12:11-0400 Body height 167.64 cm [facility] Work Phone: 2(264)487-117585 [place] [address] 01-01-2023 12:11-0400 Body mass index (BMI) [Ratio] 27.1 kg/m2 [facility] Work Phone: 3(951)819-324185 [place] [address] 01-01-2023 12:11-0400 Body weight 76.3 kg [facility] Work Phone: 3(821)026-348185 [place] [address] 10-01-2022 11:09-0400 Body height 167.[address] Nathaly Lainez Work Phone: 1(127)731-660185 [place] [address] 10-01-2022 11:09-0400 Body mass index (BMI) [Ratio] 25.2 kg/m2 Dr. Nathaly Lainez Work Phone: 3(429)540-236785 [place] [address] 10-01-2022 11:09-0400 Body temperature 95.7 [degF] Dr. Nathaly Laine[facility] Work Phone: 3(086)821-11[address] [place] [address] 10-01-2022 11:09-0400 Body weight 70.[address] Nathaly Lainez Work Phone: 8(693)068-594985 [place] [address] 10-01-2022 11:09-0400 Diastolic blood pressure 80 mm[Hg] Dr. Nathaly Lainez Work Phone: 4(948)629-682585 [place] [address] 10-01-2022 11:09-0400 Heart rate 102 /min Dr. Nathaly Lainez Work Phone: 5(507)396-694485 [place] [address] 10-01-2022 11:09-0400 Respiratory rate 24 /min Dr. Nathaly Lainez Work Phone: 8(030)715-308585 [place] [address] 10-01-2022 11:09-0400 SaO2% (BldA) [Mass fraction] 100 % Dr. Nathaly Lainez Work Phone: 1(849)836-569105 [address] 10-01-2022 11:09-0400 Systolic blood pressure 119 mm[Hg] Dr. Nathaly Lainez Work Phone: 7(591)589-948118 [place] [address] 09-18-2022 18:57-0400 Diastolic blood pressure 83 mm[Hg] Dr. Nathaly Lainez Work Phone: 1(561)496-780985 [place] [address] 09-18-2022 18:57-0400 Heart rate 74 /min Dr. Nathaly Lainez Work Phone: 4(991)363-844318 [place] [address] 09-18-2022 18:57-0400 Respiratory rate 16 /min Dr. Nathaly Lainez Work Phone: 6(802)764-144585 [place] [address] 09-18-2022 18:57-0400 SaO2% (BldA) [Mass fraction] 98 % Dr. Nathaly Lainez Work Phone: 0(617)127-934985 [place] [address] 09-18-2022 18:57-0400 Systolic blood pressure 126 mm[Hg] Dr. Nathaly Lainez Work Phone: 7(568)313-652785 [place] [address] 09-18-2022 14:13-0400 Body height 167.[address] Nathaly Lainez Work Phone: 2(241)258-290685 [place] [address] 09-18-2022 14:13-0400 Body mass index (BMI) [Ratio] 25.2 kg/m2 Dr. Nathaly Lainez Work Phone: 4(841)103-894885 [place] [address] 09-18-2022 14:130400 Body temperature 97.6 [degF] Dr. Nathaly Lainez Work Phone: 0(313)574-285285 [place] [address] 09-18-2022 14:130400 Body weight 70.[address] Nathaly Lainez Work Phone: 6(223)703-525085 [place] [address] 09-11-2022 20:19-0400 Diastolic blood pressure 92 mm[Hg] Dr. Nathaly Laine[facility] Work Phone: 7(464)572-687385 [place] [address] 09-11-2022 20:19-0400 Heart rate 101 /min Dr. Nathaly Lainez Work Phone: 8(232)148-106185 [place] [address] 09-11-2022 20:19-0400 Respiratory rate 17 /min Dr. Nathaly Lainez Work Phone: 7(424)165-637285 [place] [address] 09-11-2022 20:19-0400 SaO2% (BldA) [Mass fraction] 96 % Dr. Nathaly Lainez Work Phone: 4(314)863-530985 [place] [address] 09-11-2022 20:19-0400 Systolic blood pressure 142 mm[Hg] Dr. Nathaly Laine[facility] Work Phone: 9(963)265-960785 [place] [address] 09-11-2022 14:27-0400 Body height 170.[address] Nathaly Lainez Work Phone: 7(625)403-424985 [place] [address] 09-11-2022 14:27-0400 Body mass index (BMI) [Ratio] 24.4 kg/m2 Dr. Nathaly Lainez Work Phone: 3(607)869-110385 [place] [address] 09-11-2022 14:27-0400 Body temperature 97.2 [degF] Dr. Nathaly Lainez Work Phone: 5(970)950-760285 [place] [address] 09-11-2022 14:27-0400 Body weight 70.[address] Nathaly Lainez Work Phone: 0(135)300-159985 [place] [address] 09-09-2022 23:43-0400 Diastolic blood pressure 74 mm[Hg] Dr. Nathaly Laine[facility] Work Phone: 4(613)093-043985 [place] [address] 09-09-2022 23:43-0400 Systolic blood pressure 123 mm[Hg] Dr. Nathaly Laine[facility] Work Phone: 0(547)098-152585 [place] [address] 09-09-2022 18:22-0400 Body height 170.[address] Nathaly Lainez Work Phone: 5(469)145-569485 [place] [address] 09-09-2022 18:22-0400 Body mass index (BMI) [Ratio] 24.4 kg/m2 Dr. Nathaly Lainez Work Phone: 3(965)780-328685 [place] [address] 09-09-2022 18:22-0400 Body temperature 97.4 [degF] Dr. Nathaly Lainez Work Phone: 6(189)866-130885 [place] [address] 09-09-2022 18:22-0400 Body weight 70.[address] Nathaly Lainez Work Phone: 3(566)945-553885 [place] [address] 09-09-2022 18:22-0400 Heart rate 111 /min Dr. Nathaly Lainez Work Phone: 6(302)759-363285 [place] [address] 09-09-2022 18:22-0400 Respiratory rate 16 /min Dr. Nathaly Lainez Work Phone: 1(962)479-315785 [place] [address] 09-09-2022 18:22-0400 SaO2% (BldA) [Mass fraction] 99 % Dr. Nathaly Lainez Work Phone: 5(938)382-842185 [place] [address] 09-05-2022 15:02-0400 Respiratory rate 18 /min Dr. Nathaly Lainez Work Phone: 2(222)726-423585 [place] [address] 09-05-2022 12:29-0400 Body height 170.[address] Nathaly Lainez Work Phone: 1(634)852-397785 [place] [address] 09-05-2022 12:29-0400 Body mass index (BMI) [Ratio] 26.3 kg/m2 Dr. Nathaly Lainez Work Phone: 1(709)070-823385 [place] [address] 09-05-2022 12:29-0400 Body temperature 98.3 [degF] Dr. Nathaly Lainez Work Phone: 2(299)638-468885 [place] [address] 09-05-2022 12:29-0400 Body weight 76.[address] Nathaly Lainez Work Phone: 2(269)605-468985 [place] [address] 09-05-2022 12:29-0400 Diastolic blood pressure 90 mm[Hg] Dr. Nathaly Lainez Work Phone: 9(878)172-430585 [place] [address] 09-05-2022 12:29-0400 Heart rate 111 /min Dr. Nathaly Lainez Work Phone: 9(266)327-874885 [place] [address] 09-05-2022 12:29-0400 SaO2% (BldA) [Mass fraction] 98 % Dr. Nathaly Lainez Work Phone: 8(740)335-895685 [place] [address] 09-05-2022 12:29-0400 Systolic blood pressure 139 mm[Hg] Dr. Nathaly Lainez Work Phone: 3(105)811-140685 [place] [address] 09-02-2022 13:40-0400 Body temperature 97.9 [degF] Dr. Nathaly Lainez Work Phone: 1(491)222-304985 [place] [address] 09-02-2022 13:40-0400 Diastolic blood pressure 66 mm[Hg] Dr. Nathaly Lainez Work Phone: 7(336)843-792285 [place] [address] 09-02-2022 13:40-0400 Heart rate 98 /min Dr. Nathaly Lainez Work Phone: 4(710)724-315985 [place] [address] 09-02-2022 13:40-0400 Respiratory rate 18 /min Dr. Nathaly Lainez Work Phone: 4(754)540-168985 [place] [address] 09-02-2022 13:40-0400 SaO2% (BldA) [Mass fraction] 96 % Dr. Nathaly Lainez Work Phone: 5(869)563-868885 [place] [address] 09-02-2022 13:40-0400 Systolic blood pressure 108 mm[Hg] Dr. Nathaly Lainez Work Phone: 9(053)601-349685 [place] [address] 08-31-2022 16:10-0400 Inhaled oxygen flow rate 4 L/min Dr. Nathaly Lainez Work Phone: 7(273)867-957418 [place] [address] 08-31-2022 14:32-0400 Body height 170.[address] Nathaly Lainez Work Phone: 6(759)321-334685 [place] [address] 08-31-2022 14:32-0400 Body weight 70.[address] Nathaly Lainez Work Phone: 0(875)760-132885 [place] [address] 08-31-2022 09:14-0400 Body mass index (BMI) [Ratio] 24.4 kg/m2 Dr. Nathaly Lainez Work Phone: 4(892)554-150885 [place] [address] 08-30-2022 17:01-0400 Diastolic blood pressure 101 mm[Hg] Dr. Nathaly Lainez Work Phone: 5(774)883-491085 [place] [address] 08-30-2022 17:01-0400 Heart rate 118 /min Dr. Nathaly Lainez Work Phone: 7(075)646-406185 [place] [address] 08-30-2022 17:01-0400 Respiratory rate 18 /min Dr. Nathaly Lainez Work Phone: 8(062)814-748085 [place] [address] 08-30-2022 17:01-0400 SaO2% (BldA) [Mass fraction] 97 % Dr. Nathaly Lainez Work Phone: 6(561)514-083085 [place] [address] 08-30-2022 17:01-0400 Systolic blood pressure 142 mm[Hg] Dr. Nathaly Lainez Work Phone: 7(526)137-801085 [place] [address] 08-30-2022 16:13-0400 Body temperature 98.4 [degF] Dr. Nathaly Lainez Work Phone: 1(029)275-020085 [place] [address] 08-30-2022 13:53-0400 Body height 170.[address] Nathaly Lainez Work Phone: 7(045)615-083385 [place] [address] 08-30-2022 13:53-0400 Body mass index (BMI) [Ratio] 24.4 kg/m2 Dr. Nathaly Lainez Work Phone: 2(918)339-620385 [place] [address] 08-30-2022 13:53-0400 Body weight 70.[address] Nathaly Lainez Work Phone: 0(613)977-924218 [place] [address] 08-23-2022 13:03-0400 Body weight 73.[address] Nathaly Lainez Work Phone: 0(964)607-359918 [place] [address] 08-23-2022 13:03-0400 Diastolic blood pressure 81 mm[Hg] Dr. Nathaly Lainez Work Phone: 4(664)082-892718 [place] [address] 08-23-2022 13:03-0400 Heart rate 110 /min Dr. Nathaly Lainez Work Phone: 5(796)369-135618 [place] [address] 08-23-2022 13:03-0400 Respiratory rate 16 /min Dr. Nathaly Lainez Work Phone: 1(005)190-956618 [place] [address] 08-23-2022 13:03-0400 SaO2% (BldA) [Mass fraction] 99 % Dr. Nathaly Lainez Work Phone: 1(341)426-805618 [place] [address] 08-23-2022 13:03-0400 Systolic blood pressure 124 mm[Hg] Dr. Nathaly Lainez Work Phone: 1(873)313-104418 [place] [address] 08-14-2022 16:50-0400 Diastolic blood pressure 68 mm[Hg] Dr. Nathaly Lainez Work Phone: 7(628)048-941218 [place] [address] 08-14-2022 16:50-0400 Heart rate 89 /min Dr. Nathaly Lainez Work Phone: 1(700)446-762918 [place] [address] 08-14-2022 16:50-0400 Respiratory rate 16 /min Dr. Nathaly Lainez Work Phone: 8(588)403-122818 [place] [address] 08-14-2022 16:50-0400 SaO2% (BldA) [Mass fraction] 95 % Dr. Nathaly Lainez Work Phone: 2(754)610-783118 [place] [address] 08-14-2022 16:50-0400 Systolic blood pressure 142 mm[Hg] Dr. Nathaly Lainez Work Phone: 3(719)100-148318 [place] [address] 08-14-2022 13:51-0400 Body temperature 97.8 [degF] Dr. Nathaly Lainez Work Phone: 1(052)619-198685 [place] [address] 08-14-2022 13:37-0400 Body height 170.[address] Nathaly Lainez Work Phone: 5(710)773-202685 [place] [address] 08-14-2022 13:37-0400 Body mass index (BMI) [Ratio] 24.7 kg/m2 Dr. Nathaly Lainez Work Phone: 7(131)101-114685 [place] [address] 08-14-2022 13:37-0400 Body weight 71.[address] Nathaly Lainez Work Phone: 4(312)798-912185 [place] [address] 08-10-2022 07:07-0500 Body height 170.[address] Nathaly Lainez Work Phone: 6(731)388-557285 [place] [address] 08-10-2022 07:07-0500 Body weight 69.[address] Nathaly Lainez Work Phone: 6(725)691-672785 [place] [address] 08-09-2022 15:33-0500 Body mass index (BMI) [Ratio] 24.1 kg/m2 Dr. Nathaly Lainez Work Phone: [phone] [place] [address] 08-09-2022 10:47-0500 Body temperature 98 [degF] Dr. Nathaly Lainez Work Phone: 4(382)[phone] [place] [address] 08-09-2022 10:47-0500 Diastolic blood pressure 89 mm[Hg] Dr. Nathaly Lainez Work Phone: 6(457)[phone] [place] [address] 08-09-2022 10:47-0500 Heart rate 103 /min Dr. Nathaly Lainez Work Phone: 9(450)[phone] [place] [address] 08-09-2022 10:47-0500 Respiratory rate 18 /min Dr. Nathaly Lainez Work Phone: 6(630)[phone] [place] [address] 08-09-2022 10:47-0500 SaO2% (BldA) [Mass fraction] 97 % Dr. Nathaly Lainez Work Phone: 5(985)772-121285 [place] [address] 08-09-2022 10:47-0500 Systolic blood pressure 136 mm[Hg] Dr. Nathaly Lainez Work Phone: 9(473)574-027885 [place] [address] 08-06-2022 16:45-0500 Body temperature 97.8 [degF] Dr. Nathaly Lainez Work Phone: 1(403)858-402785 [place] [address] 08-06-2022 16:45-0500 Diastolic blood pressure 78 mm[Hg] Dr. Nathaly Lainez Work Phone: 8(628)674-032885 [place] [address] 08-06-2022 16:45-0500 Heart rate 76 /min Dr. Nathaly Lainez Work Phone: 2(509)183-862785 [place] [address] 08-06-2022 16:45-0500 Respiratory rate 16 /min Dr. Nathaly Lainez Work Phone: 1(528)691-168585 [place] [address] 08-06-2022 16:45-0500 SaO2% (BldA) [Mass fraction] 99 % Dr. Nathaly Lainez Work Phone: 7(593)061-738585 [place] [address] 08-06-2022 16:45-0500 Systolic blood pressure 143 mm[Hg] Dr. Nathaly Lainez Work Phone: 1(483)259-341085 [place] [address] 08-06-2022 14:43-0500 Body mass index (BMI) [Ratio] 24.2 kg/m2 Dr. Nathaly Lainez Work Phone: 4(072)123-096985 [place] [address] 08-06-2022 14:43-0500 Body weight 70.[address] Nathaly Lainez Work Phone: 5(317)342-007385 [place] [address] 08-03-2022 16:26-0500 Diastolic blood pressure 74 mm[Hg] Dr. Nathaly Lainez Work Phone: 3(429)869-442885 [place] [address] 08-03-2022 16:26-0500 Heart rate 107 /min Dr. Nathaly Lainez Work Phone: 8(112)596-242085 [place] [address] 08-03-2022 16:26-0500 Respiratory rate 18 /min Dr. Nathaly Lainez Work Phone: 9(629)798-384685 [place] [address] 08-03-2022 16:26-0500 SaO2% (BldA) [Mass fraction] 94 % Dr. Nathaly Lainze Work Phone: 6(147)099-957785 [place] [address] 08-03-2022 16:26-0500 Systolic blood pressure 114 mm[Hg] Dr. Nathaly Lainez Work Phone: 9(938)739-775585 [place] [address] 08-03-2022 12:19-0500 Body height 170.[address] Nathaly Lainez Work Phone: 6(618)121-941885 [place] [address] 08-03-2022 12:19-0500 Body mass index (BMI) [Ratio] 25.2 kg/m2 Dr. Nathaly Lainez Work Phone: 4(108)634-361085 [place] [address] 08-03-2022 12:19-0500 Body temperature 97.7 [degF] Dr. Nathaly Lainez Work Phone: 2(435)706-024785 [place] [address] 08-03-2022 12:19-0500 Body weight 73.[address] Nathaly Lainez Work Phone: 3(814)777-541085 [place] [address] 07-25-2022 12:13-0500 Diastolic blood pressure 90 mm[Hg] Dr. Nathaly Lainez Work Phone: 5(296)763-640385 [place] [address] 07-25-2022 12:13-0500 Heart rate 78 /min Dr. Nathaly Lainez Work Phone: 2(225)407-345885 [place] [address] 07-25-2022 12:13-0500 Respiratory rate 18 /min Dr. Nathaly Lainez Work Phone: 8(790)996-857485 [place] [address] 07-25-2022 12:13-0500 SaO2% (BldA) [Mass fraction] 98 % Dr. Nathaly Lainez Work Phone: 0(138)552-200785 [place] [address] 07-25-2022 12:13-0500 Systolic blood pressure 142 mm[Hg] Dr. Nathaly Lainez Work Phone: 1(824)496-425085 [place] [address] 07-25-2022 09:16-0500 Body height 170.[address] Nathaly Lainez Work Phone: 3(081)411-483485 [place] [address] 07-25-2022 09:16-0500 Body mass index (BMI) [Ratio] 26.3 kg/m2 Dr. Nathaly Lainez Work Phone: [facility] 07-25-2022 09:16-0500 Body temperature 97.4 [degF] Dr. Nathaly Lainez Work Phone: [facility] 07-25-2022 09:16-0500 Body weight 76.[address] Nathaly Lainez Work Phone: [facility] 06-08-2022 14:09-0500 Body height 167.6 cm Jerry Robert PA-C Work Phone: [facility] 06-08-2022 14:09-0500 Body mass index (BMI) [Ratio] 25.02 kg/m2 Jerry Robert PA-C Work Phone: [facility] 06-08-2022 14:09-0500 Body weight 70.31 kg Jerry Robert PA-C Work Phone: [facility] 06-08-2022 14:09-0500 Diastolic blood pressure 95 mm[Hg] Jerry Robert PA-C Work Phone: [facility] 06-08-2022 14:09-0500 Heart rate 117 /min Jerry Robert PA-C Work Phone: [facility] 06-08-2022 14:09-0500 Systolic blood pressure 135 mm[Hg] Jerry Robert PA-C Work Phone: [facility] 05-19-2022 19:29-0500 Heart rate 102 /min Dr. Nathaly Lainez Work Phone: [facility] 05-19-2022 19:29-0500 SaO2% (BldA) [Mass fraction] 97 % Dr. Nathaly Lainez Work Phone: [facility] 05-19-2022 14:45-0500 Body height 170.[address] Nathaly Lainez Work Phone: [facility] Work Phone: 05-19-2022 14:45-0500 Body mass index (BMI) [Ratio] 24.3 kg/m2 Dr. Nathaly Lainez Work Phone: 7(498)761-929785 [place] [address] 05-19-2022 14:45-0500 Body temperature 96 [degF] Dr. Nathaly Lainez Work Phone: 9(479)946-729285 [place] [address] 05-19-2022 14:45-0500 Body weight 70.[address] Nathaly Lainez Work Phone: 2(828)827-227585 [place] [address] 05-19-2022 14:45-0500 Diastolic blood pressure 87 mm[Hg] Dr. Nathaly Lainez Work Phone: 5(492)614-398685 [place] [address] 05-19-2022 14:45-0500 Respiratory rate 18 /min Dr. Nathaly Lainez Work Phone: 8(103)194-261885 [place] [address] 05-19-2022 14:45-0500 Systolic blood pressure 127 mm[Hg] Dr. Nathaly Lainez Work Phone: 8(189)266-296985 [place] [address] 05-10-2022 00:56-0500 Diastolic blood pressure 75 mm[Hg] Dr. Nathaly Lainez Work Phone: 6(041)976-070785 [place] [address] 05-10-2022 00:56-0500 Heart rate 101 /min Dr. Nathaly Lainez Work Phone: 6(289)446-195985 [place] [address] 05-10-2022 00:56-0500 Respiratory rate 17 /min Dr. Nathaly Lainez Work Phone: 8(132)678-111085 [place] [address] 05-10-2022 00:56-0500 SaO2% (BldA) [Mass fraction] 94 % Dr. Nathaly Lainez Work Phone: 3(828)403-786085 [place] [address] 05-10-2022 00:56-0500 Systolic blood pressure 118 mm[Hg] Dr. Nathaly Lainez Work Phone: 0(440)835-817785 [place] [address] 05-09-2022 19:01-0500 Body height 170.[address] Nathaly Lainez Work Phone: 1(839)604-981685 [place] [address] Work Phone: 05-09-2022 19:01-0500 Body mass index (BMI) [Ratio] 24.3 kg/m2 Dr. Nathaly Lainez Work Phone: [facility] 05-09-2022 19:01-0500 Body temperature 97.5 [degF] Dr. Nathaly Lainez Work Phone: [facility] 05-09-2022 19:01-0500 Body weight 70.[address] Nathaly Lainez Work Phone: [facility] 04-18-2022 14:04-0500 Body height 170.18 cm [facility] Work Phone: 04-18-2022 14:04-0500 Body mass index (BMI) [Ratio] 24.7 kg/m2 [facility] 04-18-2022 14:04-0500 Body temperature 97.2 [degF] [facility] 04-18-2022 14:04-0500 Body weight 71.6 kg [facility] 04-18-2022 14:04-0500 Diastolic blood pressure 88 mm[Hg] [facility] 04-18-2022 14:04-0500 Heart rate 115 /min [facility] 04-18-2022 14:04-0500 Respiratory rate 16 /min [facility] 04-18-2022 14:04-0500 SaO2% (BldA) [Mass fraction] 97 % [facility] 04-18-2022 14:04-0500 Systolic blood pressure 139 mm[Hg] [facility] 04-17-2022 13:53-0500 Body height 170.18 cm [facility] Work Phone: 04-17-2022 13:53-0500 Body mass index (BMI) [Ratio] 24.3 kg/m2 [facility] 04-17-2022 13:53-0500 Body temperature 97.9 [degF] [facility] 04-17-2022 13:53-0500 Body weight 70.3 kg [facility] 04-17-2022 13:53-0500 Diastolic blood pressure 80 mm[Hg] [facility] 04-17-2022 13:53-0500 Heart rate 130 /min [facility] 04-17-2022 13:53-0500 Respiratory rate 18 /min [facility] 04-17-2022 13:53-0500 SaO2% (BldA) [Mass fraction] 97 % [facility] 04-17-2022 13:53-0500 Systolic blood pressure 125 mm[Hg] [facility] 03-27-2022 12:26-0400 Diastolic blood pressure 90 mm[Hg] [facility] 03-27-2022 12:26-0400 Heart rate 103 /min [facility] 03-27-2022 12:26-0400 Respiratory rate 16 /min [facility] 03-27-2022 12:26-0400 SaO2% (BldA) [Mass fraction] 96 % [facility] 03-27-2022 12:26-0400 Systolic blood pressure 130 mm[Hg] [facility] 03-27-2022 10:29-0400 Body height 170.18 cm [facility] Work Phone: 03-27-2022 10:29-0400 Body mass index (BMI) [Ratio] 24.8 kg/m2 [facility] 03-27-2022 10:29-0400 Body temperature 96.7 [degF] [facility] 03-27-2022 10:29-0400 Body weight 72.07 kg [facility] 08-13-2021 15:21-0500 Diastolic blood pressure 80 mm[Hg] Pcp Unknown [facility] 08-13-2021 15:21-0500 Heart rate 73 /min Pcp Unknown [facility] 08-13-2021 15:21-0500 Respiratory rate 16 /min Pcp Unknown [facility] 08-13-2021 15:21-0500 SaO2% (BldA) [Mass fraction] 99 % Pcp Unknown [facility] 08-13-2021 15:21-0500 Systolic blood pressure 131 mm[Hg] Pcp Unknown [facility] 08-13-2021 12:41-0500 Body temperature 97.52 [degF] Pcp Unknown [facility] Encounters Encounter Date Encounter Type Care Provider Facility Start: 03-31-2025 ambulatory Lei Justin Fac ility:[facility] Start: 03-30-2025 ambulatory Zohreh Mckeon [facility] Fa cility:[facility] Start: 03-30-2025 Evaluation and management of inpatient Lei Justin Facility:[facility] Start: 02-11-2025 [facility]: Start: 02-10-2025 Dr. Riccardo Shaikh DO [facility] Work Phone: Start: 02-09-2025 Dr. Riccardo Shaikh DO [facility] Work Phone: Start: 02-08-2025 Dr. Talisha chen MD [facility] In[facility] Work Phone: Start: 02-07-2025 Dr. Talisha chen MD [facility] Work Phone: Start: 02-06-2025 Dr. Talisha chen MD [facility] Work Phone: Start: 02-05-2025 Dr. Talisha chen MD [facility] Work Phone: Start: 02-04-2025 Dr. Talisha chen MD [facility] Work Phone: Start: 02-03-2025 Dr. Talisha chen MD [facility] Work Phone: Start: 02-02-2025 Dr. Talisha chen MD [facility] Work Phone: Start: 02-01-2025 Dr. Lei Justin DO [facility] Work Phone: Start: 01-31-2025 ambulatory Lei Justin Fac ility:[facility] Start: 01-31-2025 End: 02-11-2025 Evaluation and management of inpatient Zohrehdmitriy Mckeon [employer]OSPACE ENGINEER-C Work Phone: -[facility] Surgical 3 Start: 01-31-2025 End: 02-11-2025 Dr. Riccardo Shaikh -[facility] Work Phone: Start: 01-31-2025 Dr. Lei Justin DO [facility] In[facility] Work Phone: Start: 01-30-2025 Dr. Nicole Trujillo DO -[facility] Inpatient Physicians Work Phone: Start: 01-29-2025 ambulatory Lei Justin Fac ility:[facility] Start: 01-29-2025 Evaluation and management of inpatient Dr. Latricia Yao DO [facility] Work Phone: Start: 01-29-2025 observation encounter Zohreh Mckeon AEROSPACE ENGINEER-C Work Phone: -Medical Surgical 3 Start: 01-29-2025 Dr. Ltaricia Manriquez [facility] Inpatient Physicians Work Phone: Start: 12-12-2024 End: 12-12-2024 Zohreh Mckeon AEROSPACE ENGINEER-C Work Phone: -Emergency Department Work Phone: Start: 12-12-2024 End: 12-12-2024 Emergency department patient visit Zohreh Mckeon AEROSPACE ENGINEER-C Work Phone: -Emergency Department Start: 09-29-2024 End: 09-29-2024 [facility] Work Phone: -Emergency Department Work Phone: Start: 09-29-2024 End: 09-29-2024 Emergency department patient visit [facility] Work Phone: [facility] Work Phone: Start: 09-24-2024 ambulatory Zohreh Mckeon [facility] Fa cility:[facility] Start: 09-23-2024 ambulatory Zohreh Mckeon [facility] Fa cility:[facility] Start: 09-22-2024 ambulatory Zohreh Mckeon [facility] Fa cility:[facility] Start: 09-21-2024 End: 09-21-2024 [facility] Work Phone: -Emergency Department Work Phone: Start: 09-21-2024 End: 09-21-2024 Emergency department patient visit [facility] Work Phone: [facility] Work Phone: Start: 09-21-2024 ambulatory [facility] Fa cility:[facility] Start: 09-20-2024 ambulatory [facility] Fa cility:[facility] Start: 09-19-2024 ambulatory [facility] Fa cility:[facility] Start: 09-18-2024 ambulatory [facility] Fa cility:[facility] Start: 09-17-2024 ambulatory Nichelle Mcneil [place] ty:[facility] Start: 09-16-2024 Dr. Latricia Aaron MD [...] Inpatient Physicians Work Phone: Start: 09-09-2024 ambulatory [facility] Facility :[facility] Start: 09-09-2024 End: 09-16-2024 Evaluation and management of inpatient [facility] Work Phone: [facility] Work Phone: Start: 09-09-2024 End: 09-16-2024 Dr. Latricia Aaron MD -[facility] it Work Phone: Start: 09-08-2024 Dr. Brenda Posadas MD -[facility] Work Phone: Start: 09-07-2024 ambulatory Brenda Posadas Facility:[facility] Start: 09-07-2024 observation encounter [facility] Work Phone: [facility] Work Phone: Start: 09-07-2024 Dr. Rosaura friedman MD -Progressive Care Unit Work Phone: Start: 09-05-2024 End: 09-05-2024 [facility] Work Phone: -Emergency Department Work Phone: Start: 09-05-2024 End: 09-05-2024 Emergency department patient visit [facility] Work Phone: [facility] Work Phone: Start: 09-02-2024 Dr. Latricia Aaron MD -[facility] Work Phone: Start: 09-01-2024 ambulatory Zohreh Mckeon [facility] Fa cility:[facility] Start: 09-01-2024 Dr. Alli Brito MD -[facility] Start: 09-01-2024 Dr. Latricia Aaron MD -[facility] Work Phone: Start: 08-31-2024 Dr. Nicole Trujillo DO -[facility] Work Phone: Start: 08-30-2024 Dr. Nicole Trujillo DO -[facility] Work Phone: Start: 08-29-2024 Dr. Nicole Trujillo DO -[facility] Work Phone: Start: 08-28-2024 Dr. Nicole Trujillo DO -[facility] Work Phone: Start: 08-27-2024 Dr. Nicole Trujillo DO -[facility] Work Phone: Start: 08-26-2024 End: 09-02-2024 Evaluation and management of inpatient [facility] Work Phone: [facility] Work Phone: Start: 08-26-2024 End: 09-02-2024 Dr. Brenda Posadas MD -Intensive Care Unit Work Phone: Start: 08-26-2024 ambulatory Nicole Trujillo Facility:[facility] Start: 08-26-2024 ambulatory [facility] Fa cility:[facility] Start: 08-26-2024 Dr. Riccardo Ng MD -[facility] -[facility] Start: 08-01-2024 End: 08-01-2024 Dr. Riccardo Hillman DO -Emergency Departme nt Work Phone: Start: 08-01-2024 End: 08-01-2024 Emergency department patient visit [facility] Facility:[facility] Start: 07-17-2024 ambulatory [facility] Fa cility:[facility] Start: 07-11-2024 End: 07-11-2024 Dr. Nicole Trujillo DO -Medical Out Work Phone: Start: 07-11-2024 End: 07-11-2024 ambulatory [facility] Facility:[facility] Start: 07-10-2024 End: 07-10-2024 Dr. Nicole Trujillo DO -Medical Out Work Phone: Start: 07-10-2024 End: 07-10-2024 ambulatory [facility] Facility:[facility] Start: 07-09-2024 ambulatory Nicole Trujillo Facility:[facility] Start: 07-08-2024 ambulatory [facility] Fa cility:[facility] Start: 07-07-2024 End: 07-07-2024 Dr. Nicole Trujillo DO -Medical Out Work Phone: Start: 07-07-2024 End: 07-07-2024 ambulatory [facility] Facility:[facility] Start: 07-06-2024 End: 07-06-2024 Dr. Nicole Trujillo DO -Medical Out Work Phone: Start: 07-06-2024 End: 07-06-2024 ambulatory Nicole Trujillo Facility:[facility] Start: 07-05-2024 End: 07-05-2024 Dr. Nicole Trujillo DO -Medical Out Work Phone: Start: 07-05-2024 End: 07-05-2024 ambulatory Nicole Trujillo Facility:[facility] Start: 07-04-2024 End: 07-04-2024 Dr. Nicole Trujillo DO -Medical Out Work Phone: Start: 07-04-2024 End: 07-04-2024 ambulatory [facility] Facility:[facility] Start: 07-03-2024 Dr. Nicole Trujillo DO -[facility] Work Phone: Start: 07-02-2024 Dr. Nicole Trujillo DO -[facility] Work Phone: Start: 07-01-2024 Dr. Nicole Trujillo DO -[facility] Work Phone: Start: 06-30-2024 Dr. Nicole Trujillo DO -[facility] Work Phone: Start: 06-29-2024 End: 07-03-2024 Evaluation and management of inpatient Brenda Posadas Facility:[facility] Start: 06-29-2024 End: 07-03-2024 Dr. Nicole Trujillo DO -Medical Surgical 3 Work Phone: Start: 06-29-2024 ambulatory Brenda Posadas [facility] Start: 05-23-2024 End: 05-24-2024 Emergency department patient visit DR RAYMUNDO VIEIRA DO [facility] Start: 04-29-2024 Dr. Talisha chen MD -[facility] Work Phone: Start: 04-28-2024 Dr. Talisha chen MD -[facility] Work Phone: Start: 04-25-2024 ambulatory [facility] Facility:[facility] Start: 04-25-2024 End: 04-29-2024 Evaluation and management of inpatient [facility] Facility:[facility] Start: 04-25-2024 End: 04-29-2024 Dr. Talisha [...] reminder.) Start: 11-20-2023 Telephone encounter Stephanie Whiting [facility] Comment on above: Orders ([facility] defer ral) Start: 10-22-2023 Telephone encounter Stephanie Whiting [facility] Comment on above: Orders ([facility] order contact/SNF ltr) Start: 10-18-2023 End: 10-19-2023 ambulatory [facility] Facility[facility] Start: 10-18-2023 Telephone encounter Diya Patten MD Work Phone: [facility] Comment on above: returned nursing hair e call; Patient Update Start: 10-15-2023 End: 10-15-2023 Emergency department patient visit [facility]-Emergency Department Work Phone: Start: 10-12-2023 Registered Referred [facility] Start: 10-09-2023 Telephone encounter Diya Patten MD Work Phone: [facility] Start: 10-08-2023 Registered Referred [facility] Start: 10-04-2023 Telephone encounter Diya Patten MD Work Phone: [facility] Comment on above: Patient Update Start: 10-02-2023 Telephone encounter Diya Patten MD Work Phone: [facility] Comment on above: Contact Center Call; Patient Update; PHYSICIAN INSTRUCTIONS Start: 10-01-2023 Telephone encounter Diya Patten MD Work Phone: [facility] Comment on above: Patient Update Start: 10-01-2023 Registered Referred [facility] Start: 09-29-2023 Registered Referred [facility] Start: 09-27-2023 Telephone encounter Diya Patten MD Work Phone: [facility] Comment on above: Patient Question; Ab scess Start: 09-24-2023 Registered Referred [facility] Start: 09-17-2023 Registered Referred [facility] Work Phone: [facility] Start: 09-12-2023 Telephone encounter Diya Patten MD Work Phone: [facility] Comment on above: Appointment; Radiolo gy XR Start: 09-10-2023 End: 09-10-2023 ambulatory [facility] Work Phone: [facility] Work Phone: Start: 09-10-2023 End: 09-10-2023 Departed Referred [facility] Work Phone: [facility] Start: 09-02-2023 End: 09-07-2023 Evaluation and management of inpatient [facility] Facility[facility] Start: 09-02-2023 End: 09-02-2023 Emergency department patient visit [facility] Work Phone: [facility]-Emergency Department Work Phone: Start: 06-19-2023 End: 06-19-2023 Emergency department patient visit [facility] Work Phone: [facility]-Emergency Department Work Phone: Start: 06-18-2023 Registered Recurring [facility] Work Phone: [facility]-Patient Link Work Phone: Start: 06-16-2023 Non-patient / Non-visit [facility] Work Phone: [facility] Work Phone: Start: 06-15-2023 Non-patient / Non-visit [facility] Work Phone: [facility] Inpatient Physicians Work Phone: Start: 06-14-2023 Non-patient / Non-visit [facility] Work Phone: [facility] Inpatient [facility]icians Work Phone: Start: 06-13-2023 Non-patient / Non-visit [facility] Work Phone: [facility] Work Phone: Start: 06-13-2023 End: 06-16-2023 Evaluation and management of inpatient [facility] Work Phone: [facility]-Progressive Care Unit Work Phone: Start: 05-26-2023 End: 05-26-2023 Emergency department patient visit [facility] Work Phone: [facility]-Emergency Department Work Phone: Start: 05-22-2023 End: 05-22-2023 Emergency department patient visit [facility] Work Phone: [facility]-Emergency Department Work Phone: Start: 05-07-2023 Non-patient / Non-visit [facility] Work Phone: [facility] Inpatient Physicians Work Phone: Start: 05-06-2023 Non-patient / Non-visit [facility] Work Phone: [facility] Start: 05-06-2023 Non-patient / Non-visit [facility] Work Phone: [facility] Inpatient [facility]icians Work Phone: Start: 05-05-2023 Non-patient / Non-visit [facility] Work Phone: [facility] Start: 05-05-2023 Non-patient / Non-visit [facility] Work Phone: [facility] In[facility]icians Work Phone: Start: 05-04-2023 Non-patient / Non-visit [facility] Work Phone: [facility] Work Phone: Start: 05-04-2023 Non-patient / Non-visit [facility] Work Phone: [facility] Start: 05-03-2023 End: 05-07-2023 Evaluation and management of inpatient [facility] Work Phone: [facility]-Progressive Care Unit Work Phone: Start: 04-18-2023 End: 04-18-2023 ambulatory [facility] Work Phone: [facility] Work Phone: Start: 04-18-2023 End: 04-18-2023 Patient encounter procedure [facility] Work Phone: [facility] Work Phone: Start: 04-05-2023 End: 04-05-2023 ambulatory [facility] Work Phone: [facility] Work Phone: Start: 04-05-2023 End: 04-05-2023 Patient encounter procedure [facility] Work Phone: [facility]-Sleep Lab Work Phone: Start: 03-22-2023 End: 03-22-2023 Patient encounter procedure [facility] Work Phone: [facility] Work Phone: Start: 02-28-2023 End: 02-28-2023 Patient encounter procedure [facility] Work Phone: [facility] Work Phone: Start: 02-06-2023 Non-patient / Non-visit [facility] [facility] Work Phone: [facility] Work Phone: Start: 02-02-2023 Non-patient / Non-visit [facility] Work Phone: [facility] Work Phone: Start: 02-02-2023 End: 02-03-2023 Evaluation and management of inpatient [facility] Work Phone: [facility]-Progressive Care Unit Work Phone: Start: 02-02-2023 End: 02-03-2023 [facility] Work Phone: Start: 01-03-2023 Non-patient / Non-visit [facility] Work Phone: [facility] Inpatient Physicians Work Phone: Start: 01-02-2023 Non-patient / Non-visit [facility] Work Phone: [facility] Work Phone: Start: 01-01-2023 Non-patient / Non-visit [facility] Work [facility]: Start: 01-01-2023 End: 01-03-2023 Evaluation and management of inpatient [facility] Work Phone: [facility]Pro[facility] Care [facility] Work Phone: Start: 10-01-2022 End: 10-01-2022 Emergency department patient visit Dr. Nathaly Lainez Work Phone: [facility] Work Phone: Start: 10-01-2022 End: 10-01-2022 Dr. Nathaly Lainez Work Phone: [facility]-Emergency Department Start: 09-18-2022 End: 09-18-2022 Emergency department patient visit Dr. Nathaly Lainez Work Phone: [facility] Work Phone: Start: 09-18-2022 End: 09-18-2022 Dr. Nathaly Lainez Work Phone: [facility]-Emergency Department Start: 09-11-2022 End: 09-11-2022 Emergency department patient visit Dr. Nathaly Lainez Work Phone: [facility] Work Phone: Start: 09-11-2022 End: 09-11-2022 Dr. Nathaly Lainez Work Phone: [facility]-Emergency Department Start: 09-09-2022 End: 09-10-2022 Emergency department patient visit Dr. Nathaly Lainez Work Phone: [facility]-Emergency Department Start: 09-09-2022 End: 09-10-2022 Dr. Nathaly Lainez Work Phone: [facility]-Emergency Department Start: 09-08-2022 Non-patient / Non-visit Dr. Rashida Lainez Work Phone: [facility] Start: 09-08-2022 End: 09-08-[address] Nathaly Lainez Work Phone: [facility] Work Phone: Start: 09-08-2022 End: 09-08-[address] Nathaly Lainez Work Phone: [facility]-Cardiovascular Services Start: 09-08-2022 End: 09-08-2022 Dr. Nathaly Lainez Work Phone: [facility] Start: 09-05-2022 Non-patient / Non-visit Dr. Rashida Lainez Work Phone: [facility] Start: 09-05-2022 End: 09-05-2022 Emergency department patient visit Dr. Nathaly Lainez Work Phone: [facility]-Emergency Department Start: 09-05-2022 End: 09-05-2022 Dr. Nathaly Lainez Work Phone: [facility]-Emergency Department Start: 09-04-2022 ambulatory JEISON FORDE DPM Faci lity:R Start: 09-02-2022 Non-patient / Non-visit Dr. Rashida Lainez Work Phone: [facility] Start: 09-02-2022 Dr. Nathaly reyes Work Phone: [facility] Start: 09-01-2022 Non-patient / Non-visit Dr. Rashida Lainez Work Phone: [facility] Start: 09-01-2022 Dr. Nathaly reyes Work Phone: [facility] Start: 08-31-2022 Non-patient / Non-visit Dr. Rashida Lainez Work Phone: [facility] Start: 08-31-2022 Dr. Nathaly reyes Work Phone: [facility] Start: 08-31-2022 Non-patient / Non-visit Dr. Rashida Lainez Work Phone: [facility] Start: 08-31-2022 Dr. Nathaly reyes Work Phone: [facility] Start: 08-30-2022 Non-patient / Non-visit Dr. Rashida Lainez Work Phone: [facility] Start: 08-30-2022 Dr. Nathaly reyes Work Phone: [phone] [place] [address] Inpatient Physicians Start: 08-30-2022 End: 09-02-2022 Evaluation and management of inpatient [facility] Start: 08-30-2022 End: 09-02-2022 Dr. Nathaly Lainez Work Phone: [phone] [address] [place], [place] [address]Medical Surgical 3 Start: 08-23-2022 End: 08-23-[address] Nathaly Lainez Work Phone: [phone] [place] [address] Vascular Surgery Start: 08-23-2022 End: 08-23-2022 Dr. Nathaly Lainez Work Phone: [phone] [place] [address] Vascular Surgery Start: 08-17-2022 Non-patient / Non-visit Dr. Rashida Lainez Work Phone: [phone] [place] [address]-BVS Start: 08-17-2022 End: 08-17-[address] Nathaly Lainez Work Phone: [phone] [place] [address]-Cardiovascular Services Start: 08-17-2022 End: 08-17-2022 Dr. Nathaly Lainez Work Phone: [phone] [place] [address]-BVS Start: 08-14-2022 End: 08-14-2022 Emergency department patient visit Dr. Nathaly Lainez Work Phone: [phone] [place] [address]-Emergency Department Start: 08-14-2022 End: 08-14-2022 Dr. Nathaly Lainez Work Phone: [phone] [address]-Emergency Department Start: 08-10-2022 Non-patient / Non-visit Dr. Rashida Lainez Work Phone: [phone] [place] [address]-BVS Start: 08-10-2022 Dr. Nathaly reyes Work Phone: [phone] [place] [address] Start: 08-10-2022 End: 08-10-2022 Admission to same day surgery center Dr. Nathaly Lainez Work Phone: [facility]-Editorial Intern/Special Procedures Start: 08-10-2022 End: 08-10-[address] Nathaly Lainez Work Phone: [facility] Work Phone: Start: 08-10-2022 End: 08-10-2022 Dr. Nathaly Lainez Work Phone: [facility]-Editorial Intern/Special Procedures Start: 08-09-2022 End: 08-09-[address] Nathaly Lainez Work Phone: [phone] [place] [address] Vascular Surgery Start: 08-09-2022 End: 08-09-2022 Dr. Nathaly Lainez Work Phone: [phone] [place] [address] Vascular Surgery Start: 08-06-2022 End: 08-06-2022 Emergency department patient visit Dr. Nathaly Lainez Work Phone: [facility]-Emergency Department Start: 08-06-2022 End: 08-06-2022 Dr. Nathaly Lainez Work Phone: [phone] [place] [address]-Emergency Department Start: 08-03-2022 End: 08-03-2022 Emergency department patient visit Dr. Nathaly Lainez Work Phone: [phone] [place] [address]-Emergency Department Start: 08-03-2022 End: 08-03-2022 Dr. Nathaly Lainez Work Phone: [facility]-Emergency Department Start: 07-25-2022 End: 07-25-2022 Emergency department patient visit Dr. Nathaly Lainez Work Phone: [facility]-Emergency Department Start: 07-25-2022 End: 07-25-2022 Dr. Nathaly Lainez Work Phone: [phone] [place] [address]-Emergency Department Start: 06-29-2022 End: 06-29-[address] Nathaly Lainez Work Phone: [facility]-Outpatient Bone Densitometry Start: 06-29-2022 End: 06-29-2022 Dr. Nathaly Lainez Work Phone: [facility]-Outpatient Bone Densitometry Start: 06-21-[address] Nathaly Lainez Work Phone: [facility]-Physical Therapy Start: 06-21-2022 Dr. Nathaly reyes Work Phone: [facility]-Physical Therapy Start: 06-08-2022 End: 06-08-2022 Postop follow up visit related to original px Jerry Jones PA-C Work Phone: [facility] [place] Comment on above: Closed 3-part fractu re of proximal humerus, right, with routine healing, subsequent encounter (Primary Dx) Start: 05-19-2022 End: 05-19-2022 Emergency department patient visit Dr. Nathaly Lainez Work Phone: [facility]-Emergency Department Start: 05-19-2022 End: 05-19-2022 Dr. Nathaly Lainez Work Phone: [facility]-Emergency Department Start: 05-09-2022 End: 05-10-2022 Emergency department patient visit Dr. Nathaly Lainez Work Phone: [facility]-Emergency Department Start: 05-02-2022 End: 05-03-2022 ambulatory [facility] Start: 04-24-2022 End: 04-24-[address] Nathaly Lainez Work Phone: [facility] Start: 04-18-2022 End: 04-18-2022 Emergency department patient visit [facility]Emergency Department Start: 04-17-2022 End: 04-17-2022 Emergency department patient visit [facility]Emergency Department Start: 03-27-2022 End: 03-27-2022 Emergency department patient visit [facility]Emergency Department Start: 08-13-2021 End: 08-13-2021 Emergency department patient visit Alex Tapia [facility] Emergency 16 Start: 08-25-2019 End: 08-25-2019 Patient encounter procedure [facility] Start: 07-20-2018 End: 07-21-2018 Patient encounter procedure [facility] Start: 06-08-2018 End: 06-12-2018 Evaluation and management of inpatient [facility] Start: 12-14-2017 End: 12-14-2017 Emergency department patient visit UNKNOWN PROVIDER [facility] Start: 11-30-2017 End: 12-05-2017 Patient encounter procedure [facility] Procedures Date Procedure Procedure Detail Performing Clinician Start: 02-10-2025 Blood count smear mcrscp w/mnl difrntl wbc count Zohreh Mckeon AEROSPACE ENGINEER-C Work Phone: Start: 02-10-2025 Estimated creatinine clearance Zohreh Mckeon AEROSPACE ENGINEER-C Work Phone: Start: 02-10-2025 Mean corpuscular hemoglobin concentration determination Zohreh Mckeon AEROSPACE ENGINEER-C Work Phone: Start: 02-10-2025 Nucleated red blood cell count procedure Zohreh Mckeon AEROSPACE ENGINEER-C Work Phone: Start: 02-10-2025 Platelet mean volume determination Zohreh Mckeon AEROSPACE ENGINEER-C Work Phone: Start: 02-09-2025 Vitamin D, 25-hydroxy measurement Zohreh Mckeon AEROSPACE ENGINEER-C Work Phone: Start: 01-31-2025 Benzodiazepine measurement, urine Zohreh Mckeon AEROSPACE ENGINEER-C Work Phone: Start: 01-31-2025 Cocaine measurement, urine Zohreh pierce AEROSPACE ENGINEER-C Work Phone: Start: 01-31-2025 Methadone measurement, urine Zohreh Mckeon AEROSPACE ENGINEER-C Work Phone: Start: 01-31-2025 Urine cannabinoid measurement Zohreh Mckeon AEROSPACE ENGINEER-C Work Phone: Start: 01-31-2025 Urine microscopy: red cells Zohreh Mckeon AEROSPACE ENGINEER-C Work Phone: Start: 01-31-2025 Urine opiate measurement Zohreh flores AEROSPACE ENGINEER-C Work Phone: Start: 01-31-2025 Urnls dip stick/tablet reagent auto microscopy Zohreh Mckeon AEROSPACE ENGINEER-C Work Phone: Start: 01-31-2025 Serum inorganic phosphate measurement Zohreh Mckeon AEROSPACE ENGINEER-C Work Phone: Start: 01-30-2025 Assay of triglycerides Zohreh Mckeon AEROSPACE ENGINEER-C Work Phone: Start: 01-30-2025 Total cholesterol:HDL ratio measurement Zohreh Mckeon AEROSPACE ENGINEER-C Work Phone: Start: 01-29-2025 Plain x-ray of pelvis and lower extremity Zohreh Mckeon NP-C Work Phone: Start: 01-29-2025 Estimated creatinine clearance Zohreh Mckeon NP-C Work Phone: Start: 12-12-2024 X-ray of ankle, three or more views Zohreh Mckeon AEROSPACE ENGINEER-C Work Phone: Start: 12-12-2024 X-ray of foot, three or more views Zohreh Mckeon AEROSPACE ENGINEER-C Work Phone: Start: 09-29-2024 Blood count smear mcrscp w/mnl difrntl wbc count Zohreh Mckeon NP-C Work Phone: Start: 09-29-2024 Estimated creatinine clearance Zohreh Mckeon NP-C Work Phone: Start: 09-29-2024 Mean corpuscular hemoglobin concentration determination Zohreh Mckeon NP-C Work Phone: Start: 09-29-2024 Nucleated red blood cell count procedure Zohreh Mckeon AEROSPACE ENGINEER-C Work Phone: Start: 09-29-2024 Platelet mean volume determination Zohreh Mckeon NP-C Work Phone: Start: 09-29-2024 Triacylglycerol lipase measurement Zohreh Mckeon AEROSPACE ENGINEER-C Work Phone: Start: 09-29-2024 Urine microscopy: red cells Zohreh Mckeon NP-C Work Phone: Start: 09-29-2024 Urnls dip stick/tablet reagent auto microscopy Zohreh Mckeon AEROSPACE ENGINEER-C Work Phone: Start: 09-21-2024 Urine microscopy: red cells Zohreh Mckeon AEROSPACE ENGINEER-C Work Phone: Start: 09-21-2024 Urnls dip stick/tablet reagent auto microscopy Zohreh Mckeon AEROSPACE ENGINEER-C Work Phone: Start: 09-21-2024 Estimated creatinine clearance Zohreh Mckeon AEROSPACE ENGINEER-C Work Phone: Start: 09-21-2024 Triacylglycerol lipase measurement Zohreh Mckeon AEROSPACE ENGINEER-C Work Phone: Start: 09-21-2024 Blood count smear mcrscp w/mnl difrntl wbc count Zohreh Mckeon AEROSPACE ENGINEER-C Work Phone: Start: 09-21-2024 Mean corpuscular hemoglobin concentration determination Zohreh Mckeon AEROSPACE ENGINEER-C Work Phone: Start: 09-21-2024 Nucleated red blood cell count procedure Zohreh Mckeon AEROSPACE ENGINEER-C Work Phone: Start: 09-21-2024 Platelet mean volume determination Zohreh Mckeon AEROSPACE ENGINEER-C Work Phone: Start: 09-16-2024 Blood count smear mcrscp w/mnl difrntl wbc count Zohrhe Mckeon AEROSPACE ENGINEER-C Work Phone: Start: 09-16-2024 Mean corpuscular hemoglobin concentration determination Zohreh Mckeon AEROSPACE ENGINEER-C Work Phone: Start: 09-16-2024 Nucleated red blood cell count procedure Zohreh Mckeon AEROSPACE ENGINEER-C Work Phone: Start: 09-16-2024 Platelet mean volume determination Zohreh Mckeon AEROSPACE ENGINEER-C Work Phone: Start: 09-16-2024 Estimated creatinine clearance Zohreh Mckeon AEROSPACE ENGINEER-C Work Phone: Start: 09-12-2024 Urine microscopy: red cells Zohreh Mckeon AEROSPACE ENGINEER-C Work Phone: Start: 09-12-2024 Urnls dip stick/tablet reagent auto microscopy Zohreh Mckeon AEROSPACE ENGINEER-C Work Phone: Start: 09-12-2024 Urine culture [facility] Work Phone: Start: 09-11-2024 Plain X-ray abdomen [facility] Work Phone: Start: 09-09-2024 Urine culture [facility] Work Phone: Start: 09-09-2024 Serum inorganic phosphate measurement Zohreh Mckeon AEROSPACE ENGINEER-C Work Phone: Start: 09-08-2024 Blood culture [facility] Work Phone: Start: 09-08-2024 Clostridium difficile detection [facility] Work Phone: Start: 09-08-2024 Nucleic acid assay [facility] Work Phone: Start: 09-08-2024 Iadna-dna/rna gi pthgn multiplex probe tq 6-11 Zohreh Mckeon AEROSPACE ENGINEER-C Work Phone: Start: 09-08-2024 Parathyroid hormone measurement Zohreh Mckeon AEROSPACE ENGINEER-C Work Phone: Start: 09-08-2024 Vitamin D, 25-hydroxy measurement Zohreh Mckeon AEROSPACE ENGINEER-C Work Phone: Start: 09-08-2024 Calcium measurement Zohreh Mckeon AEROSPACE ENGINEER-C Work Phone: Start: 09-07-2024 Computed tomography of abdomen and pelvis with intravenous contrast [facility] Work Phone: Start: 09-07-2024 Triacylglycerol lipase measurement Zohreh Mckeon AEROSPACE ENGINEER-C Work Phone: Start: 09-05-2024 Blood count smear mcrscp w/mnl difrntl wbc count Zohreh Mckeon AEROSPACE ENGINEER-C Work Phone: Start: 09-05-2024 Estimated creatinine clearance Zohreh Mckeon AEROSPACE ENGINEER-C Work Phone: Start: 09-05-2024 Mean corpuscular hemoglobin concentration determination Zohreh Mckeon AEROSPACE ENGINEER-C Work Phone: Start: 09-05-2024 Nucleated red blood cell count procedure Zohreh Mckeon AEROSPACE ENGINEER-C Work Phone: Start: 09-05-2024 Platelet mean volume determination Zohreh Mckeon NP-C Work Phone: Start: 09-05-2024 Triacylglycerol lipase measurement Zohreh WOODC Work Phone: Start: 09-02-2024 Blood count smear mcrscp w/mnl difrntl wbc count Zohreh Mckeon AEROSPACE ENGINEER-C Work Phone: Start: 09-02-2024 Estimated creatinine clearance Zohreh Mckeon AEROSPACE ENGINEER-C Work Phone: Start: 09-02-2024 Mean corpuscular hemoglobin concentration determination Zohreh WOOD Work Phone: Start: 09-02-2024 Nucleated red blood cell count procedure Zohreh Mckeon AEROSPACE ENGINEERRamilaC Work Phone: Start: 09-02-2024 Platelet mean volume determination Zohreh Mckeon AEROSPACE ENGINEER-C Work Phone: Start: 09-02-2024 Serum inorganic phosphate measurement Zohreh Mckeon AEROSPACE ENGINEER- Work Phone: Start: 08-29-2024 Iadna-dna/rna gi pthgn multiplex probe tq 6-11 Zohreh Mckeon AEROSPACE ENGINEER- Work Phone: Start: 08-29-2024 Clostridium difficile detection [facility] Work Phone: Start: 08-29-2024 Nucleic acid assay [facility] Work Phone: Start: 08-27-2024 MRI of lumbar spine [facility] Work Phone: Start: 08-27-2024 Calculation of international normalized ratio Zohreh Mckeon [facility] Work Phone: Start: 08-26-2024 CT angiography of lower limb [facility] Work Phone: Start: 08-26-2024 Assay of lactate Zohreh Mckeon [facility] Work Phone: Start: 08-26-2024 Plain chest X-ray [facility] Work Phone: Start: 08-01-2024 Computed tomography of abdomen and pelvis with intravenous contrast [facility] Work Phone: Start: 08-01-2024 Urine culture [facility] Work Phone: Start: 07-02-2024 CT of abdomen and pelvis with oral contrast [facility] Work Phone: Start: 06-29-2024 Plain chest X-ray [facility] Work Phone: Start: 06-29-2024 Computed tomography of abdomen and pelvis with intravenous contrast [facility] Work Phone: Start: 06-29-2024 Urine culture [facility] Work Phone: Start: 04-25-2024 Computed tomography of abdomen and pelvis with intravenous contrast [facility] Work Phone: Start: 10-15-2023 Plain x-ray of pelvis and lower extremity Start: 09-02-2023 Antibody screen IBETH ALEJANDRO Comment on above: Order Comment: Specimen Type: BLOOD SPEC IMEN Ordering Facility: [facility] Address: [address] [place] [address] Performed By: #### 5 [id number] #### [facility] [id number] [address] [place] [address] [place] Start: 09-02-2023 Plain chest X-ray [facility] Work Phone: Start: 09-02-2023 Plain x-ray of pelvis and lower extremity [facility] Work Phone: Start: 06-19-2023 Plain x-ray of pelvis and lower extremity [facility] Work Phone: Start: 06-19-2023 Radiologic examination of knee [facility] Work Phone: Start: 06-15-2023 Radiography of ankle [facility] Work Phone: Start: 06-12-2023 CT angiography of chest with contrast [facility] Work Phone: Start: 05-26-2023 Plain chest X-ray [facility] Work Phone: Start: 05-22-2023 X-ray of both feet [facility] Work Phone: Start: 05-03-2023 SARS-CoV-2 & FLU Antigen (Rapid) [facility] Work Phone: Start: 05-03-2023 Viral antigen assay [facility] Work Phone: Start: 05-03-2023 Plain chest X-ray [facility] Work Phone: Start: 02-02-2023 CT angiography of chest with contrast [facility] Work Phone: Start: 02-02-2023 Plain chest X-ray [facility] Work Phone: Start: 01-01-2023 SARS-CoV-2 & FLU Antigen (Rapid) [facility] Work Phone: Start: 01-01-2023 CT angiography of chest with contrast [facility] Work Phone: Start: 10-01-2022 Diagnostic radiography [...] DTaP,Tdap,Td Vaccine (2 - Td or Tdap) [facility] Start: 02-11-2025 Patient discharge [facility] Start: 02-06-2025 [facility] Start: 01-31-2025 [facility] Start: 01-31-2025 Care planning and pr oblem solving actions [facility] Start: 01-30-2025 [facility] Start: 01-30-2025 Dual pressure sponta neous ventilation support [facility] Start: 01-29-2025 Application of intermittent pneumatic compression device [facility] Start: 01-29-2025 Following clinical pathway protocol [facility] Start: 01-29-2025 Assessment of risk o f venous thromboembolism [facility] Start: 01-29-2025 Care regimes management [facility] Start: 01-29-2025 Insertion of cathete r into peripheral vein [facility] Start: 01-29-2025 Measuring intake and output [facility] Start: 01-29-2025 Notification of physician [facility] Start: 01-29-2025 Providing care accor ding to standard [facility] Start: 01-29-2025 Provision of activit y privileges [facility] Start: 01-29-2025 Referral to occupati onal therapist [facility] Start: 01-29-2025 Referral to service [facility] Start: 01-29-2025 Tobacco use cessatio n education [facility] Start: 01-29-2025 End: 01-29-2025 [facility] Start: 01-29-2025 Urinalysis complete panel - Urine [facility] Start: 01-29-2025 Verification routine [facility] Start: 01-29-2025 Admission procedure [facility] Start: 01-29-2025 Hospital admission, emergency, from emergency room, medical nature [facility] Start: 01-29-2025 HIP, UNI W/ Pelvis 2 -3 Views HIP, UNI W/ Pelvis 2-3 Views [facility] Start: 01-29-2025 XR Pelvis and Hip Views [facility] Start: 01-29-2025 Thyroid stimulating hormone measurement [facility] Start: 01-29-2025 Patient referral to dietitian [facility] Start: 12-12-2024 [facility] Start: 09-29-2024 End: 09-29-2024 [facility] Start: 09-21-2024 [facility] Start: 09-16-2024 Patient discharge [facility] Start: 09-16-2024 [facility] Start: 09-14-2024 Consultation [facility] Start: 09-14-2024 Care planning and pr oblem solving actions [facility] Start: 09-11-2024 Consultation [facility] Start: 09-09-2024 Admission procedure [facility] Start: 09-08-2024 [facility] Start: 09-07-2024 Following clinical pathway protocol [facility] Start: 09-07-2024 Assessment of risk o f venous thromboembolism [facility] Start: 09-07-2024 Care regimes management [facility] Start: 09-07-2024 Fall prevention [facility] Start: 09-07-2024 Inhalation therapy procedure [facility] Start: 09-07-2024 Insertion of cathete r into peripheral vein [facility] Start: 09-07-2024 Measuring intake and output [facility] Start: 09-07-2024 Notification of physician [facility] Start: 09-07-2024 Providing care accor ding to standard [facility] Start: 09-07-2024 Provision of activit y privileges [facility] Start: 09-07-2024 Referral to occupati onal therapist [facility] Start: 09-07-2024 Referral to service [facility] Start: 09-07-2024 Tobacco use cessatio n education [facility] Start: 09-07-2024 End: 09-07-2024 [facility] Start: 09-07-2024 Verification routine [facility] Start: 09-07-2024 Admission procedure [facility] Start: 09-07-2024 Hospital admission, emergency, from emergency room, medical nature [facility] Start: 09-07-2024 Serum inorganic phos phate measurement [facility] Start: 09-07-2024 Patient referral to dietitian [facility] Start: 09-05-2024 [facility] Start: 09-02-2024 [facility] [facility] Start: 09-02-2024 Patient discharge [facility] Start: 09-01-2024 [facility] Start: 08-27-2024 [facility] Start: 08-26-2024 Following clinical pathway protocol [facility] Start: 08-26-2024 Assessment of risk o f venous thromboembolism [facility] Start: 08-26-2024 Care regimes management [facility] Start: 08-26-2024 Incentive spirometry [facility] Start: 08-26-2024 Insertion of cathete r into peripheral vein [facility] Start: 08-26-2024 Measuring intake and output [facility] Start: 08-26-2024 Notification of physician [facility] Start: 08-26-2024 Providing care accor ding to [facility] Start: 08-26-2024 Referral to occupati onal therapist [facility] Start: 08-26-2024 Referral to service [facility] Start: 08-26-2024 Referral to vascular surgeon [facility] Start: 08-26-2024 Vital signs measurements [facility] Start: 08-26-2024 End: 08-26-2024 [facility] Start: 08-26-2024 Verification routine [facility] Start: 08-26-2024 Admission procedure [facility] Start: 08-26-2024 Hospital admission, emergency, from emergency room, medical nature [facility] Start: 08-26-2024 Patient referral to dietitian [facility] Start: 08-01-2024 [facility] Start: 07-03-2024 Patient discharge [facility] Start: 07-01-2024 Consultation [facility] Start: 06-30-2024 [facility] Start: 06-30-2024 [facility] Start: 06-30-2024 Referral to occupati onal therapist [facility] Start: 06-30-2024 Referral to service [facility] Start: 06-29-2024 Assessment of risk o f venous thromboembolism [facility] Start: 06-29-2024 Care regimes management [facility] Start: 06-29-2024 Insertion of cathete r into peripheral vein [facility] Start: 06-29-2024 Measuring intake and output [facility] Start: 06-29-2024 Notification of physician [facility] Start: 06-29-2024 Providing care accor ding to [facility] Start: 06-29-2024 Provision of activit y privileges [facility] Start: 06-29-2024 End: 06-29-2024 [facility] Start: 06-29-2024 End: 06-29-2024 Following clinical pathway protocol [facility] Start: 06-29-2024 Admission procedure [facility] Start: 04-29-2024 Patient discharge [facility] Start: 04-29-2024 Care planning and pr oblem solving actions [facility] Start: 04-29-2024 [facility] Start: 04-28-2024 Wound care [facility] Start: 04-26-2024 End: 04-27-2024 [facility] Start: 04-25-2024 Care planning and pr oblem solving actions [facility] Start: 04-25-2024 Assessment of risk o f venous thromboembolism [facility] Start: 04-25-2024 Care regimes management [facility] Start: 04-25-2024 Consultation for treatment [facility] Start: 04-25-2024 Inhalation therapy procedure [facility] Start: 04-25-2024 Insertion of cathete r into peripheral vein [facility] Start: 04-25-2024 Notification of physician [facility] Start: 04-25-2024 Patient referral to dietitian [facility] Start: 04-25-2024 Providing care accor ding to standard [facility] Start: 04-25-2024 Provision of activit y privileges [facility] Start: 04-25-2024 Referral to occupati onal therapist [facility] Start: 04-25-2024 Referral to service [facility] Start: 04-25-2024 End: 04-25-2024 [facility] Start: 04-25-2024 Care of central veno us catheter [facility] Start: 04-25-2024 Following clinical pathway protocol [facility] Start: 04-25-2024 Admission procedure [facility] Start: 04-25-2024 Patient referral to dietitian [facility] Start: 02-21-2024 End: 02-21-2024 Patient encounter procedure 02/21/2024 1:30 PM EDT Office Visit Endocrine Surgery [address] [place] [address] Gerda Rivero MD [address] [id number] [facility] Comment on above: [facility] Start: 02-03-2024 Covid-19 Vaccine ( season) Covid-19 Vaccine () [facility] Start: 02-03-2024 Influenza vaccination Influenza Vacc ine (#1) [facility] Start: 12-04-2023 Hemoglobin A1c measurement HbA1C [facility] Start: 10-23-2023 End: 10-23-2023 Patient encounter procedure 10/23/2023 1:15 PM EDT Office Visit [facility] [address] [place] [address] Gadiel Washington PA-C [address] [address] [place] [address] PO [facility] Comment on above: PO Start: 09-02-2023 End: 09-02-2023 [facility] Start: 06-19-2023 [facility] Start: 06-16-2023 Patient discharge [facility] Start: 06-15-2023 Referral to padding machine operator [facility] Start: 06-15-2023 Care regimes management [facility] Start: 06-13-2023 Blood chemistry [facility] Start: 06-13-2023 Following clinical pathway protocol [facility] Start: 06-13-2023 Assessment of risk o f venous thromboembolism [facility] Start: 06-13-2023 Fluid restriction [facility] Start: 06-13-2023 Insertion of cathete r into peripheral vein [facility] Start: 06-13-2023 Measuring intake and output [facility] Start: 06-13-2023 Oxygen therapy [facility] Start: 06-13-2023 Providing care accor ding to standard [facility] Start: 06-13-2023 Provision of activit y privileges [facility] Start: 06-13-2023 Referral to occupati onal therapist [facility] Start: 06-13-2023 Referral to service [facility] Start: 06-13-2023 End: 06-13-2023 [facility] Start: 06-13-2023 Verification routine [facility] Start: 06-13-2023 Admission procedure [facility] Start: 06-13-2023 Patient referral to dietitian [facility] Start: 06-12-2023 [facility] Start: 05-26-2023 [facility] Start: 05-11-2023 Blood chemistry [facility] Start: 05-10-2023 Blood chemistry [facility] Start: 05-09-2023 Blood chemistry [facility] Start: 05-08-2023 Blood chemistry [facility] Start: 05-07-2023 Patient discharge [facility] Start: 05-04-2023 Patient referral [facility] Work Phone: Start: 05-03-2023 [facility] Start: 05-03-2023 Referral to fuel cell builder [facility] Start: 05-03-2023 Ambulation without limitation [facility] Start: 05-03-2023 Assessment of risk o f venous thromboembolism [facility] Start: 05-03-2023 Care regimes management [facility] Start: 05-03-2023 Inhalation therapy procedure [facility] Start: 05-03-2023 Insertion of cathete r into peripheral vein [facility] Start: 05-03-2023 Measuring intake and output [facility] Start: 05-03-2023 Notification of physician [facility] Start: 05-03-2023 Oxygen therapy [facility] Start: 05-03-2023 Providing care accor ding to standard [facility] Start: 05-03-2023 Referral to occupati onal therapist [facility] Start: 05-03-2023 Referral to service [facility] Start: 05-03-2023 [facility] Start: 05-03-2023 Following clinical pathway protocol [facility] Start: 05-03-2023 Verification routine [facility] Start: 05-03-2023 Admission procedure [facility] Start: 05-03-2023 Hospital admission, emergency, from emergency room, medical nature [facility] Start: 05-03-2023 [facility] Start: 05-03-2023 [facility] Start: 05-03-2023 Consultation [facility] Start: 05-03-2023 Patient referral to [facility] Start: 02-03-2023 Patient discharge [facility] Start: 02-02-2023 Following clinical pathway protocol [facility] Start: 02-02-2023 Ambulation without limitation [facility] Start: 02-02-2023 Assessment of risk o f venous thromboembolism [facility] Start: 02-02-2023 Care regimes management [facility] Start: 02-02-2023 Insertion of cathete r into peripheral vein [facility] Start: 02-02-2023 Measuring intake and output [facility] Start: 02-02-2023 Notification of physician [facility] Start: 02-02-2023 Providing care accor ding to [facility] Start: 02-02-2023 [facility] Start: 02-02-2023 Oxygen therapy [facility] Start: 02-02-2023 Verification routine [facility] Start: 02-02-2023 Admission procedure [facility] Start: 02-02-2023 [facility] Start: 02-02-2023 Covid-19 Vaccine ( season) Covid-19 Vaccine () [facility] Start: 02-02-2023 Brain natriuretic pe ptide measurement [facility] Start: 02-02-2023 Patient referral to [facility] Start: 01-03-2023 Patient discharge [facility] Start: 01-01-2023 Ambulation without limitation [facility] Start: 01-01-2023 Assessment of risk o f venous thromboembolism [facility] Start: 01-01-2023 Care regimes management [facility] Start: 01-01-2023 Catheterization of vein [facility] Start: 01-01-2023 Insertion of cathete r into peripheral vein [facility] Start: 01-01-2023 Measuring intake and output [facility] Start: 01-01-2023 Notification of physician [facility] Start: 01-01-2023 Providing care accor ding to standard [facility] Start: 01-01-2023 [facility] Start: 01-01-2023 Admission procedure [facility] Start: 01-01-2023 Following clinical pathway protocol [facility] Start: 01-01-2023 [facility] Start: 09-02-2022 Patient discharge [facility] Start: 09-01-2022 Referral to service [facility] Start: 09-01-2022 Wound care [facility] Start: 09-01-2022 [facility] Start: 08-31-2022 Amputation of toe Amputation T oe/Foot (Right) [facility] Start: 08-31-2022 Patient referral to dietitian [facility] Start: 08-31-2022 Blood chemistry [facility] Start: 08-30-2022 Care regimes management [facility] Start: 08-30-2022 Notification of physician [facility] Start: 08-30-2022 [facility] Start: 08-30-2022 Assessment of risk o f venous thromboembolism [facility] Start: 08-30-2022 Consultation [facility] Start: 08-30-2022 Consultation for treatment [facility] Start: 08-30-2022 Insertion of cathete r into peripheral vein [facility] Start: 08-30-2022 [facility] Start: 08-30-2022 Providing care accor ding to [facility] Start: 08-30-2022 Referral to service [facility] Start: 08-30-2022 Tobacco use cessatio n education [facility] Start: 08-30-2022 [facility] Start: 08-30-2022 Following clinical pathway protocol [facility] Start: 08-30-2022 Admission procedure [facility] Start: 08-30-2022 Verification routine [facility] Start: 08-30-2022 [facility] Start: 08-30-2022 End: 08-30-2022 Blood culture [facility] Start: 08-09-2022 Patient referral [facility] Work Phone: Start: 07-20-2022 End: 07-20-2022 Patient encounter procedure 07/20/2022 Office Visit Orthopedic Surgery Jerry Jones PA-C [address] [id number] [facility] [place] Start: 07-20-2022 End: 07-20-2022 Documentation procedure 07/20/2022 Documentation Orthopedic Surgery [facility] [place] Start: 05-19-2022 [facility] Start: 02-02-2022 Influenza vaccination Influenza Vacc ine (#1) [facility] Start: 08-23-2021 Shingrix Vaccine (1 of 2) Mcmillan grix Vaccine (1 of 2) [facility] Start: 08-23-2021 Zoster Vaccines (1 of 2) Zoste r Vaccines (1 of 2) [facility] Start: 02-23-2021 COVID-19 Vaccine (3 - Booster for Moderna series) COVID-19 Vaccine (3 - Booster for Moderna series) [facility] Start: 2020 Hepatitis B surface antibody level LDL Cholesterol [facility] Start: 03-14-2020 Annual PCP Team Instructor Physical yamil Disease Visit Annual PCP Team Chronic Disease Visit [facility] Start: 06-19-2019 Screening for malign ant neoplasm of cervix [facility] Start: 06-18-2019 Screening for malign ant neoplasm of cervix Pap Testing [facility] Start: 01-31-2019 Screening for malign ant neoplasm of colon [facility] Start: 08-23-2016 Screening for malign ant neoplasm of colon [facility] Start: 10-14-2013 Screening for malign ant neoplasm of breast Mammogram Screening [facility] Start: 2011 Screening for malign ant neoplasm of breast Mammogram [facility] Start: 08-23-2001 Screening for malign ant neoplasm of cervix [facility] Start: 08-23-1992 Screening for malign ant neoplasm of cervix Pap Smear [facility] Start: 08-23-1990 DTaP/Tdap/Td Vaccine s (1 - Tdap) DTaP/Tdap/Td Vaccines (1 - Tdap) [facility] Start: 08-23-1990 Hepatitis B Vaccine (1 of 3 - 19+ 3-dose series) Hepatitis B Vaccine (1 of 3 - 19+ 3-dose series) [facility] Start: 08-23-1990 Urine screening for protein Diabetes: Urine Protein Screening [facility] Start: 08-23-1989 BP Controlled (<130/80) BP Controlle d (<130/80) [facility] Start: 08-23-1989 Hepatitis C screening Hepatitis C Sc reening [facility] Start: 08-23-1989 HIV [facility] Start: 08-23-1981 Diabetic foot examination [facility] Start: 08-23-[address] [facility] Start: 08-23-1981 Hepatitis B screening Urine Albumin:Creatinine Ratio [facility] Start: 08-23-1981 Preventive dental service Diabetes: Dental Exam [facility] Start: 08-23-1977 Pneumococcal vaccination Pneum ococcal Vaccine (1 of 2 - PCV) [facility] Start: 08-23-1977 Pneumococcal Vaccine : Pediatrics (0 to 5 Years) and At-Risk Patients (6 to 64 Years) (1 - PCV) Pneumococcal Vaccine: Pediatrics (0 to 5 Years) and At-Risk Patients (6 to 64 Years) (1 - PCV) [facility] Start: 08-23-1972 MMR Vaccines (1 of 1 - Standard series) MMR Vaccines (1 of 1 - Standard series) [facility] Start: 1971 Hemoglobin A1c measurement Diabetes: Hemoglobin A1C [facility] Start: 1971 Hepatitis B Vaccines (1 of 3 - 3-dose series) Hepatitis B Vaccines (1 of 3 - 3-dose series) [facility] Start: 1971 HIV screening HIV Screening [facility] Start: 1971 Lipid panel Lipid Panel [place] Start: 1971 Screening for malign ant neoplasm of colon [facility] Anion gap measurement [facility] Anion gap measurement [facility] Ankle brachial press ure index [facility] Ankle brachial press ure index [facility] Bacteria identified in Blood by Culture Blood Culture [facility] Bacteria identified in Blood by Culture Blood Culture [facility] Bacteria identified in Urine by Culture Urine Culture [facility] Bilirubin measuremen t, urine [facility] BUN/Creatinine ratio [facility] BUN/Creatinine ratio [facility] Calcium [Mass/volume ] in 24 hour Urine [facility] Calcium [Mass/volume ] in Serum or Plasma [facility] Calcium [Mass/volume ] in Serum or Plasma [facility] Carbon dioxide, tota l [Moles/volume] in Serum or Plasma [facility] Carbon dioxide, tota l [Moles/volume] in Serum or Plasma [facility] Chloride [Moles/volu me] in Serum or Plasma [facility] Chloride [Moles/volu me] in Serum or Plasma [facility] Creatinine [Moles/vo lume] in Serum or Plasma [facility] Creatinine [Moles/vo lume] in Serum or Plasma [facility] Folate [Moles/volume ] in Serum or Plasma [facility] Glucose [Mass/volume ] in Serum or Plasma [facility] Glucose [Mass/volume ] in Serum or Plasma [facility] Hematocrit [Volume Fraction] of Blood [facility] Hematocrit [Volume Fraction] of Blood [facility] Hemoglobin [Mass/vol ume] in Blood [facility] Hemoglobin [Mass/vol ume] in Blood [facility] Hemoglobin [Presence ] in Urine [facility] Hemoglobin A1c/Hemoglobin.total in Blood [facility] Lactic acid measurement [facility] Leukocytes [#/volume ] in Blood [facility] Leukocytes [#/volume ] in Blood [facility] Magnesium [Mass/volu me] in Serum or Plasma [facility] Magnesium measurement [facility] Mean corpuscular hemoglobin concentration determination [facility] Mean corpuscular hemoglobin concentration determination [facility] Mean corpuscular hemoglobin determination [facility] Mean corpuscular hemoglobin determination [facility] Measurement of keton es in urine using dipstick [facility] Measurement of renal function [facility] Measurement of renal function [facility] Microscopic urinalysis [facility] Neutrophil count [facility] Neutrophil count [facility] Neutrophil percent differential count [facility] Neutrophil percent differential count [facility] Patient Education [facility] Work Phone: Patient referral [facility] Work Phone: pH of Urine [facility] Platelets [#/volume] in Blood [facility] Platelets [#/volume] in Blood [facility] Potassium [Moles/vol ume] in Serum or Plasma [facility] Potassium [Moles/vol ume] in Serum or Plasma [facility] Radionuclide gastric emptying study [facility] Red blood cell count [facility] Red blood cell count [facility] Red cell distributio n width determination [facility] Red cell distributio n width determination [facility] Sodium [Moles/volume ] in Serum or Plasma [facility] Sodium [Moles/volume ] in Serum or Plasma [facility] Specific gravity of Urine [facility] Urea nitrogen [Mass/volume] in Serum or Plasma [facility] Urea nitrogen [Mass/volume] in Serum or Plasma [facility] Urine blood test [facility] Urine dipstick for glucose [facility] Urine dipstick for leukocyte esterase [facility] Urine dipstick for nitrite [facility] Urine dipstick for protein [facility] Urine examination [facility] Urine microscopy: epithelial cells [facility] Urine Microscopy: wh ite cells [facility] Urobilinogen [Presen ce] in Urine [facility] US Lower extremity artery [facility] Immunizations Immunization Date Immunization Notes Care Provider [facility] 06-14-2023 influenza, injectabl e, quadrivalent, preservative free [facility] Work Phone: [facility] 06-14-2023 influenza virus vaccine, unspecified formulation Gerda Rivero MD Work Phone: [facility] 09-01-2022 influenza, injectabl e, quadrivalent, preservative free [facility] Work Phone: [facility] 09-01-2022 influenza, seasonal, injectable Dr. Nathaly Lainez Work Phone: [facility] 08-05-2021 influenza, injectabl e, quadrivalent, preservative free [facility] Work Phone: [facility] 08-05-2021 influenza, seasonal, injectable [facility] 08-05-2021 influenza virus vaccine, unspecified formulation Jerry Jones PA-C Work Phone: [facility] 12-29-2020 Covid (Moderna) Dr. Nathaly Lowery Work Phone: [facility] 11-30-2020 Covid (Erasmo) Dr. Nathaly Lowery Work Phone: [facility] 07-20-2018 influenza, injectabl e, quadrivalent, preservative free [facility] Work Phone: [facility] 07-20-2018 influenza, seasonal, injectable Dr. Nathaly Lainez Work Phone: [facility] Payers Date Payer Category Payer Self-pay [id number] 2022 Medicaid [id number] 2012 Medicaid [id number] 2012 Unknown [id number] 1971 Unknown [id number] .[id number] 1971 Unknown [id number] .0.1.458516.3.579.2.627 1971 Unknown [id number] .840.1.830031.3.579.2.627 Unknown [employer] Unknown [id number] .840.1.742346.3.579.2.462 Unknown [id number] .840.1.182793.3.579.2.462 Unknown [id number] 2.840.1.491656.3.579.2.462 Unknown [id number] 2.16840.1.193451.3.579.2.462 Unknown [id number] 2.840.1.454236.3.579.2.462 Unknown [id number] 2.16840.1.202631.3.579.2.462 Unknown [id number] 2.840.1.115939.3.579.2.462 Unknown [id number] 2.840.1.317921.3.579.2.462 Unknown [id number] 2.840.1.300825.3.579.2.462 Unknown [id number] 2.840.1.616103.3.579.2.462 Unknown [id number] 2.840.1.666065.3.579.2.462 Unknown [id number] 2.840.1.515462.3.579.2.462 Unknown [id number] 2.840.1.400577.3.579.2.462 Unknown [id number] 2.840.1.749777.3.579.2.462 Unknown [id number] 2.840.1.681605.3.579.2.462 Unknown [id number] .840.1.202443.3.579.2.462 Unknown [id number] 2.840.1.789360.3.579.2.462 Unknown [id number] .840.1.839266.3.579.2.462 Unknown [id number] .840.1.291685.3.579.2.462 Unknown [id number] .840.1.698880.3.579.2.462 Unknown [id number] .840.1.423939.3.579.2.462 Unknown [id number] 2.840.1.904184.3.579.2.462 Unknown [id number] 2.840.1.368335.3.579.2.462 Unknown [id number] 2.840.1.398138.3.579.2.462 Unknown [id number] 2.16.840.1.246531.3.579.2.462 Unknown [id number] 2.16.840.1.486090.3.579.2.462 Unknown [id number] 2.16.840.1.741614.3.579.2.462 Unknown [id number] 2.16.840.1.611331.3.579.2.462 Unknown [id number] 2.16.840.1.705191.3.579.2.462 Unknown [id number] 2.16.840.1.401530.3.579.2.462 Unknown [id number] 2.16.840.1.628174.3.579.2.462 Unknown [id number] 2.16.840.1.729907.3.579.2.462 Unknown [id number] 2.16.840.1.709543.3.579.2.462 Unknown [id number] 2.16.840.1.282836.3.579.2.462 Unknown [id number] 2.16.840.1.291928.3.579.2.462 Unknown [id number] 2.16.840.1.649007.3.579.2.462 Unknown [id number] 2.16.840.1.472921.3.579.2.462 Unknown [id number] 2.16.840.1.994876.3.579.2.462 Unknown [id number] 2.16.840.1.069515.3.579.2.462 Unknown [id number] 2.16.840.1.171954.3.579.2.462 Unknown [id number] 2.16.840.1.203271.3.579.2.462 Unknown [id number] 2.16.840.1.029871.3.579.2.462 Unknown [id number] 2.16.840.1.611888.3.579.2.462 Unknown [id number] 2.16.840.1.209150.3.579.2.462 Unknown [id number] 2.16.840.1.231649.3.579.2.462 Unknown [id number] 2.16.840.1.452923.3.579.2.462 Unknown [id number] 2.16.840.1.909676.3.579.2.462 Unknown [id number] 2.16.840.1.726722.3.579.2.462 Unknown [id number] 2.16.840.1.731723.3.579.2.462 Unknown [id number] 2.16840.1.768462.3.579.2.462 Unknown [id number] 2.16840.1.947834.3.579.2.462 Unknown [id number] 2.16840.1.411695.3.579.2.462 Unknown [id number] 2.16840.1.935831.3.579.2.462 Unknown [id number] 2.840.1.464375.3.579.2.462 Unknown [id number] 2.16840.1.042511.3.579.2.462 Unknown [id number] 2.16840.1.496843.3.579.2.462 Unknown [id number] 2.16840.1.472581.3.579.2.462 Unknown [id number] 2.16840.1.950717.3.579.2.462 Unknown [id number] 2.16840.1.670457.3.579.2.462 Unknown [id number] 2.16.840.1.987174.3.579.2.462 Unknown [id number] 2.16.840.1.555347.3.579.2.462 Unknown [id number] 2.16840.1.818569.3.579.2.462 Unknown [id number] 2.16.840.1.064343.3.579.2.462 Unknown [id number] 2.16.840.1.542197.3.579.2.462 Unknown [id number] 2.16.840.1.987073.3.579.2.462 Unknown [id number] 2.16.840.1.539351.3.579.2.462 Unknown [id number] 2.16.840.1.038377.3.579.2.462 Unknown [id number] 2.16.840.1.811850.3.579.2.462 Unknown [id number] 2.16.840.1.091184.3.579.2.462 Unknown [id number] 2.16.840.1.857329.3.579.2.462 Unknown [id number] 2.16.840.1.729810.3.579.2.462 Unknown [id number] 2.16.840.1.720028.3.579.2.462 Unknown [id number] 2.16.840.1.989563.3.579.2.462 Unknown [id number] 2.16.840.1.640389.3.579.2.462 Unknown [id number] 2.16.840.1.464455.3.579.2.462 Unknown [id number] 2.16.840.1.065325.3.579.2.462 Unknown [id number] 2.16.840.1.021395.3.579.2.462 Unknown [id number] 2.16.840.1.092344.3.579.2.462 Unknown [id number] 2.16.840.1.861115.3.579.2.462 Unknown [id number] 2.16.840.1.848638.3.579.2.462 Unknown [id number] 2.16.840.1.960122.3.579.2.462 Unknown [id number] 2.16.840.1.552356.3.579.2.462 Unknown [id number] 2.16.840.1.104261.3.579.2.462 Unknown [id number] 2.16.840.1.188819.3.579.2.462 Unknown [id number] 2.16.840.1.586568.3.579.2.462 Unknown [id number] 2.16.840.1.282622.3.579.2.462 Unknown [id number] 2.16.840.1.858231.3.579.2.462 Unknown [id number] 2.16.840.1.246848.3.579.2.462 Unknown [id number] 2.840.1.990931.3.579.2.462 Unknown [id number] 2.16.840.1.915525.3.579.2.462 Unknown [id number] 2..840.1.338776.3.579.2.462 Unknown [id number] 2.16.840.1.517644.3.579.2.462 Unknown [id number] 2.16.840.1.921282.3.579.2.462 Unknown [id number] 2.16.840.1.876805.3.579.2.462 Unknown [id number] 2.16.840.1.719708.3.579.2.462 Unknown [id number] 2.16.840.1.899048.3.579.2.462 Unknown [id number] 2.16.840.1.351473.3.579.2.462 Unknown [id number] 2.16.840.1.665519.3.579.2.462 Unknown [id number] 2.16.840.1.443053.3.579.2.462 Unknown [id number] 2..840.1.215225.3.579.2.462 Unknown [id number] 2.840.1.259532.3.579.2.462 Unknown [id number] 2..840.1.357172.3.579.2.462 Social History Date Type Detail Facility [facility] Start: 03-27-2022 End: 10-15-2023 Tobacco smoking consumption unknown [facility] Start: 08-13-2020 None [facility] Start: 08-13-2020 Spouse/ Signif icant Other [facility] Start: 08-11-2020 Cigarettes [facility] Start: 1970 Sex Assigned At Female [facility] Start: 12-06-2018 End: 01-30-2025 Tobacco smoking status NHIS Smokes tobacco daily [facility] History of tobacco use Cigarette Smoker C [facility] Start: 12-06-2018 End: 09-03-2023 Cigarettes smoked current (pack per day) - Reported 0.5 [facility] Start: 12-06-2018 Tobacco use and exposure Smokeless tobacco non-user [facility] Start: 09-03-2023 End: 10-19-2023 Alcohol intake Current non-drinker of alcohol (finding) [facility] Start: 08-31-2020 End: 09-03-2023 [facility] [employer] Has the [employer], or [employer] threatened to shut off services in your home in past 12Mo No [facility] Attends [employer] Not on file [facility] Are you now , , , , never or living with a partner? [facility] How often to you hav e a drink containing alcohol? Never [facility] Do you feel stress - tense, restless, nervous, or anxious, or unable to sleep at night because your mind is troubled all the time - these days [OSQ] Very much [facility] (I/We) worried wheth er (my/our) food would run out before (I/we) got money to buy more. Never true [facility] Start: 10-18-2018 Education 12 [facility] Start: 1970 Sex Assigned At Not on file S [facility] Start: 05-29-2022 End: 06-08-2022 Exposure to SARS-CoV-2 (event) Not sure [facility] Start: 05-23-2024 Tobacco smoking status Never s moked tobacco (finding) [facility] Sexual Orientation [facility] Start: 09-04-2022 End: 09-29-2024 Sex Female (finding) [facility] Start: 08-26-2024 End: 08-28-2024 Tobacco smoking status NHIS Current Heavy tobacco smoker [facility] NEGATED: Highlighted row [facility] Medical Equipment Procedure Code Equipment Code Equipment Origin al Text Equipment Identifier Dates ([id number]) [id number] FDA Start: 08-10-2022 [id number] FDA Start: 08-10-2022 ([id number]) ()[id number] FDA Start: 08-10-2022 Nail Tfn-Advance d 125d Short Green Titanium 170mm Intramedullary Cannulated - [id number] Start: 09-03-2023 Screw Tfn-Advanc ed 85mm Bone Sterile - [id number] Start: 09-03-2023 Screw 5mm 4.3mm T25 Full Thread Titanium 34mm Bone Lock Self Tap Blunt Tip - [id number] Start: 09-03-2023 Comment on above: Description: Was on worksheet and verified on intra-op x-ray. [id number], [id number], [id number], [id number], [id number], [id number] Start: 10-08-2018 Comment on above: Check sugars [...] Assessment Result Facility 02-11-2025 Functional status Ambulates;Bedrest [facility] Work Phone: 09-16-2024 Functional status Ambulates;Bathroom Priv [facility] Work Phone: 09-02-2024 Functional status Ambulates [facility] Work Phone: 07-03-2024 Functional status Ambulates [facility] Work Phone: 05-24-2024 Functional Status Activity Status ADL [facility] 05-23-2024 Functional Status Standard Safet y ID band on, Allergy Band on, Call device within reach, Bed in low position, Wheels locked, personal items within reach, Safety level maintained [facility] 04-29-2024 Functional status Ambulates [facility] Work Phone: 06-16-2023 Functional status Ambulates;Bedside Commo [facility] Work Phone: 05-07-2023 Functional status Bedside Commode [facility] Work Phone: 02-03-2023 Functional status Activity Ability Indepe ndent [facility] Work Phone: 01-03-2023 Functional status Patient Activi ty Ambulates;Up ad maria m [facility] Work Phone: 01-03-2023 Functional status Standby Assist [facility] Work Phone: 01-02-2023 Functional status Tolerates Activity Well [facility] Work Phone: 09-02-2022 Functional status Ambulates;Bedside Commo [facility] Work Phone: Mental Status Date Assessment Result Facility 02-11-2025 Cognitive function Voice/Name [facility] Work Phone: 09-29-2024 Cognitive function Awake;Alert;A ppropriate;Follow s Commands [facility] Work Phone: 09-16-2024 Cognitive function Voice/Name [facility] Work Phone: 09-02-2024 Cognitive function Voice/Name [facility] Work Phone: 07-11-2024 Cognitive function Voice/Name [facility] Work Phone: 07-10-2024 Cognitive function Awake;Alert;A ppropriate;Follow s Commands [facility] Work Phone: 07-07-2024 Cognitive function Awake;Alert;A ppropriate;Follow s Commands [facility] Work Phone: 07-05-2024 Cognitive function Voice/Name [facility] Work Phone: 07-04-2024 Cognitive function Voice/Name [facility] Work Phone: 07-03-2024 Cognitive function Voice/Name [facility] Work Phone: 05-23-2024 Mental Status Orientation Oriented x 4 [facility] 04-29-2024 Cognitive function Voice/Name [facility] Work Phone: 06-16-2023 Cognitive function Voice/Name [facility] Work Phone: 06-12-2023 Cognitive function Level Of Cons ciousness Awake;Alert;Appropriate [facility] Work Phone: 05-07-2023 Cognitive function Voice/Name [facility] Work Phone: 02-03-2023 Cognitive function Voice/Name [facility] Work Phone: 02-02-2023 Cognitive function Level Of Cons ciousness Awake;Alert;Appropriate [facility] Work Phone: 01-03-2023 Cognitive function Appropriate;Cooperativ e [facility] Work Phone: 01-01-2023 Cognitive function Level Of Cons ciousness Awake;Alert;Appropriate;Follow s Commands [facility] Work Phone: 09-02-2022 Cognitive function Voice/Name [facility] Work Phone: 04-17-2022 Cognitive function Level Of Cons ciousness Awake;Alert;Appropriate [facility] Work Phone: 03-27-2022 Cognitive function Level Of Cons ciousness Awake;Alert;Appropriate [facility] Work Phone: Clinical Notes 06-08-2022 to 02-11-2025 Note Date & Type Note Facility 02-11-2025 Discharge summary Note Date/Time February 11, 2025 2:39pm [facility] Medical Records Department [address] [place] [address] Transfer to [facility] MR#: [id number] Acct: [id number] Name: TRENTON JACKSON Rep #:[id number] : 1970 54 From: Riccardo Shaikh DO PCP: RUTH Lawrence, AEROSPACE ENGINEER-C Statu s:ADM IN Certification of patient admission REQUIRED AT TIME OF ADMISSION. I CERTIFY THAT POST-HOSPITAL [facility] SERVICES ARE REQUIRED TO BE GIVEN ON AN IN-PATIENT BASIS BECAUSE OF THE ABOVE NAMED PATIENT'S NEED FOR RETIREMENT CARE ON A CONTINUING BASIS FOR THE CONDITION(S) FOR WHICH HE/SHE WAS RECEIVING IN-PATIENT HOSPITAL SERVICES PRIOR TO HIS/HER TRANSFER TO THE [facility]. 02/11/25 1439<Electronically signed by Riccardo Shaikh DO> [...] Martina case has been escalated to case campaign management specialist. Allergies/Procedures Done in Hospital Allergies [...] willing to have diet education while at [facility] Discharge Plan Admission Admit Date/Time: 01/31/25 13:49 Primary Reason for Your Visit: pelvic fractures Attending Provider: Riccardo Shaikh Primary Care Provider: Zohreh Mckeon [facility] Consulting Providers: Latricia Yao; Nicole Trujillo; Lei [...] cbc while on iv abx. Fax to [phone]. acetaminophen 325 mg Tablet 650 mg PO [...] than 130 mg/dl (DME) OXYGEN - Supplemental ([facility] INFORMATIONAL USE ONLY) Gas See Rx Instructions .ROUTE Patient Comments: wears 2lpm @HS provided by [employer] Rx Instructions: As directed Referrals / Follow Up: Zohreh Mckeon, AEROSPACE ENGINEER-C [Primary Care Provider] - Within 2 Weeks Disposition Disposition (needs filled in before D/C Order can be placed): Shelter Facility (2) Fracture of pubic ramus Qualifiers: Encounter type: initial encounter Fracture type: closed Laterality: right Qualified Code(s): S32.591A - Other specified fracture of right pubis, initial encounter for closed fracture 02/11/25 6209 <Electronically signed by Riccardo Shaikh DO> Cosigner Signature (if applicable): CC: RUTH AEROSPACE ENGINEER-C Zohreh Mckeon; Dr. Lei Justin DO; Dr. Latricia Yao DO; Dr. Nicole Turjillo DO; Dr. Talisha Boykin MD ~ [facility] Work Phone: 1(638) 340-775109-10-2025 Progress note Author Riccardo Shaikh [facility] Note Date/Time February 11, 2025 2:26pm [facility] Medical Records Department [address] [place] [address] Progress Note - Hospitalist 02/11/25 1214 MR#: [id number] Acct: [id number] Name: TRENTON JACKSON Rep #:[id number] : 1970 54 From: Riccardo Shaikh DO PCP: RUTH Lawrence, AEROSPACE ENGINEER-C Statu s:ADM IN Location: MS3 HI503-3 Reason for Visit Chief Complaint: Severe Right [...] Martina case has been escalated to case campaign management specialist. Charges/Coding Visit Charges Inpatient E&M: 44578 Subs Hosp L1 02/11/25 1216 <Electronically signed by Riccardo Shaikh DO> Cosigner Signature (if applicable): CC: ~ Signed ADDENDUM by Dr. Riccardo Shaikh DO on 02/11/25 at 1426 Addendum DW CM/SW. Apparently, there was a clerical error preventing the precert from proceeding. It has since been expedited. 02/11/25 1426<Electronically signed by Riccardo Shaikh DO> Cosigner Signature (if applicable): cc: ~* Signed [facility] Work Phone: 1(643) 210-195309-09-2025 Progress note Author Riccardo Shaikh [facility] Note Date/Time February 10, 2025 10:02am [facility] Medical Records Department [address] [place] [address] Progress Note - Hospitalist 02/10/2559 MR#: [id number] Acct: [id number] Name: TRENTON JACKSON Rep #:[id number] : 1970 54 From: Riccardo Shaikh DO PCP: RUTH Lawrence, AEROSPACE ENGINEER-C Statu s:ADM IN Location: MS3 TE746-7 Reason for Visit Chief Complaint: Severe Right [...] % (Auto) 64.4, Lymph % (Auto) 26.3, Amador% (Auto) 7.2, Eos % (Auto) 1.1, Baso [...] pending precert. Charges/Coding Visit Charges Inpatient E&M: 06699 Subs Hosp L1 02/10/25 1002 <Electronically signed by Riccardo Shaikh DO> Cosigner Signature (if applicable): CC: ~ Signed [facility] Work Phone: 1(375) 135-346309-08-2025 Progress note Author Riccardo Shaikh [facility] Note Date/Time February 09, 2025 5:58pm [facility] Medical Records Department [address] [facility] [place] [address] Progress Note - Hospitalist 02/09/2504 MR#: [id number] Acct: [id number] Name: TRENTON JACKSON Rep #:[id number] : 1970 54 From: Riccardo Shaikh DO PCP: RUTH Lawrence, AEROSPACE ENGINEER-C Statu s:ADM IN Location: AL3 YF337-5 Reason for Visit Chief Complaint: Severe Right [...] % (Auto) 58.7, Lymph % (Auto) 30.8, Amador % (Auto) 7.7, Eos % (Auto) 1.3, [...] while she was here. I reviewed through [employer] her A1c being 13.2. She initially said [...] yelling atme. Charges/Coding Visit Charges Inpatient E&M: 92582 Subs Hosp L2 02/09/25 1302 <Electronically signed [...] Cosigner Signature (if applicable): cc: ~* Signed [facility] Work Phone: 1(442) 495-969909-07-2025 Progress note Author Talisha [facility] Note Date/Time February 08, 2025 1:26pm [facility] Medical Records Department [address] [place] [address] Progress Note 02/08/25 1322 MR#: [id number] Acct: [id number] Name: TRENTON JACKSON Rep #:[id number] : 1970 54 From: Talisha Boykin MD PCP: Zohreh Mckeon Gideon, AEROSPACE ENGINEER-C Statu s:ADM IN Location: [facility] VK875-3 Subjective Subjective Patient seen and examined with [...] % (Auto) 59.9, Lymph % (Auto) 28.0, Amador % (Auto) 9.3, Eos % (Auto) 1.2, [...] pending precert. Charges/Coding Visit Charges Inpatient E&M: 75559 Subs Hosp L2 02/08/25 1326 <Electronically signed by Talisha Boykin MD> Talisha Boykin MD Cosigner Signature (if applicable): CC: ~ Signed [facility] Work Phone: 1(198) 243-285609-06-2025 Progress note Author Talisha Patriciajayce[facility] Note Date/Time February 07, 2025 3:57pm [facility] Medical Records Department [address] [place] [address] Progress Note 02/07/25 1428 MR#: [id number] Acct: [id number] Name: TRENTON JACKSON Rep #:[id number] : 1970 54 From: Talisha Boykin MD PCP: RUTH Lawrence, AEROSPACE ENGINEER-C Statu s:ADM IN Location: [place] [address] Subjective Subjective Patient seen and examined. She [...] % (Auto) 53.2, Lymph % (Auto) 35.5, Amador % (Auto) 8.5, Eos % (Auto) 1.3, [...] pending precert. Charges/Coding Visit Charges Inpatient E&M: 75830 Subs Hosp L2 02/07/25 4992 <Electronically signed by Talisha Boykin MD> Talisha Boykin MD Cosigner Signature (if applicable): CC: ~ Signed [facility] Work Phone: 1(931) 700-568109-05-2025 Progress note Author [facility] Note Date/Time February 06, 2025 4:00pm [facility] Medical Records Department [address] [place] [address] Progress Note 02/06/25 1043 MR#: [id number] Acct: [id number] Name: TRENTON JACKSON Rep #:[id number] : 1970 54 From: Talisha Boykin MD PCP: Zohreh Mckeon, RUTH, AEROSPACE ENGINEER-C Statu s:ADM IN Location: MS3 CZ562-6 Subjective Subjective Patient seen and examined with [...] % (Auto) 60.3, Lymph % (Auto) 28.8, Amador % (Auto) 7.8, Eos % (Auto) 1.6, [...] pending precert. Charges/Coding Visit Charges Inpatient E&M: 38564 Subs Hosp L2 02/06/25 1600 <Electronically signed by Talisha Boykin MD> Talisha Boykin MD Cosigner Signature (if applicable): CC: ~ Signed [facility] Work Phone: 1(746) 353-188609-04-2025 Progress note Author Talisha [facility] Note Date/Time February 05, 2025 1:35pm [facility] Medical Records Department [address] [place] [address] Progress Note 02/05/25 1332 MR#: [id number] Acct: [id number] Name: TRENTON JACKSON Rep #:[id number] : 1970 54 From: Talisha Boykin MD PCP: Zohreh Mckeon, Gideon, AEROSPACE ENGINEER-C Statu s:ADM IN Location: MS3 QL884-6 Subjective Subjective Patient seen and examined with [...] % (Auto) 56.0, Lymph % (Auto) 33.6, Amador % (Auto) 7.8, Eos % (Auto) 1.4, [...] pending precert. Charges/Coding Visit Charges Inpatient E&M: 74006 Subs Hosp L2 02/05/25 1335 <Electronically signed by Talisha Boykin MD> Talisha Boykin MD Cosigner Signature (if applicable): CC: ~ Signed [facility] Work Phone: 1(792) 617-594509-03-2025 Progress note Author Talisha [facility] Note Date/Time February 04, 2025 6:31pm [facility] Medical Records Department [address] [place] [address] Progress Note 02/04/25 1124 MR#: [id number] Acct: [id number] Name: TRENTON JACKSON Rep #:[id number] : 1970 54 From: Talisha Boykin MD PCP: Zohreh Mckeon, VSC, AEROSPACE ENGINEER-C Statu s:ADM IN Location: MS3 MD610-0 Subjective Subjective Patient seen and examined with [...] % (Auto) 62.7, Lymph % (Auto) 26.4, Amador % (Auto) 8.5, Eos % (Auto) 1.4, [...] pending precert. Charges/Coding Visit Charges Inpatient E&M: 26000 Subs Hosp L2 02/04/25 1831 <Electronically signed by Talisha Boykin MD> Talisha Boykin MD Cosigner Signature (if applicable): CC: ~ Signed [facility] Work Phone: 1(991) 798-482709-02-2025 Progress note Author Talisha [facility] Note Date/Time February 03, 2025 3:33pm [facility] Medical Records Department [address] [place] [address] Progress Note 09/02/25 1019 MR#: [id number] Acct: [id number] Name: TRENTON JACKSON Rep #:[id number] : 1970 54 From: Talisha Boykin MD PCP: Zohreh Mckeon Gideon, AEROSPACE ENGINEER-C Statu s:ADM IN Location: MS3 SK923-9 Subjective Subjective Patient seen and examined with [...] Std Deviation 48.6 H, RDW Coeff of Spenecr 15.2 H, Plt Count 188, MPV 10.3, Immature Gran % (Auto) 0.500, Neut % (Auto) 60.5, Lymph % (Auto) 29.2,Amador % (Auto) 7.8, Eos % (Auto) 1.4, [...] pending precert. Charges/Coding Visit Charges Inpatient E&M: 58091 Subs Hosp L2 02/03/25 1533 <Electronically signed by Talisha Boykin MD> Talisha Boykin MD Cosigner Signature (if applicable): CC: ~ Signed [facility] Work Phone: 1(591) 345-527709-01-2025 Progress note Author Talisha [facility] Note Date/Time February 02, 2025 4:48pm [facility] Medical Records Department [address] [place] [address] Progress Note 02/02/25 1211 MR#: [id number] Acct: [id number] Name: TRENTON JACKSON Rep #:[id number] : 1970 54 From: Talisha Boykin MD PCP: RUTH Lawrence, AEROSPACE ENGINEER-C Statu s:ADM IN Location: [facility] YF858-7 Subjective Subjective Patient seen and examined. She [...] pending precert. Charges/Coding Visit Charges Inpatient E&M: 71568 Subs Hosp L2 02/02/25 1648 <Electronically signed by Talisha Boykin MD> Talisha Boykin MD Cosigner Signature (if applicable): CC: ~ Signed [facility] Work Phone: 1(928) 826-714408-31-2025 Progress note Author Lei Justin [facility] Note Date/Time February 01, 2025 10 :03am [facility] Medical Records Department [address] [place] [address] Progress Note - Hospitalist 02/01/25 0911 MR#: [id number] Acct: [id number] Name: TRENTON JACKSON Rep #:[id number] : 1970 54 From: Lei swanson DO PCP: RUTH Lawrence, AEROSPACE ENGINEER-C Statu s:ADM IN Location: [facility] XH607-1 Reason for Visit Chief Complaint: Severe Right [...] is a 54-year-old female who presented to [facility] ED on 01/29/2025 with right hip/groin [...] 35 minutes. Charges/Coding Visit Charges Inpatient E&M: 17287 Subs Hosp L2 02/01/25 1003 <Electronically signed by Lei Justin DO> Cosigner Signature (if applicable): CC: ~ Signed [facility] Work Phone: 1(925) 555-940808-30-2025 Evaluation note* Diagnosis Onset Date Resolution Status [...] 2025 1:49pm Tobacco abuse acute January 1:49pm [facility] Work Phone: 1(333) 793-573108-30-2025 Progress note Author Lei [facility] Note Date/Time January 31, 2025 10 :36am [facility] Medical Records Department [address] [facility] [place] [address] Progress Note - Hospitalist 01/31/2519 MR#: [id number] Acct: [id number] Name: TRENTON JACKSON Rep #:[id number] : 1970 54 From: Lei swanson DO PCP: RUTH Lawrence, AEROSPACE ENGINEER-C Statu s:ADM REHAN Location: [place] [address] Reason for Visit Chief Complaint: Severe Right [...] % (Auto) 60.2, Lymph % (Auto) 30.6, Amador % (Auto) 7.0, Eos % (Auto) 1.2, [...] Clarity Clear, Urine pH 6.5, Ur Specific [place] 1.010, Urine Protein 30 H, Urine Glucose [...] is a 54-year-old female who presented to [facility] ED on 01/29/2025 with right hip/groin [...] 35 minutes. Charges/Coding Visit Charges Inpatient E&M: 44607 Subs Hosp L2 01/31/25 1036 <Electronically signed by Lei Justin DO> Cosigner Signature (if applicable): CC: ~ Signed [facility] Work Phone: 1(766) 819-225508-29-2025 Progress note Author Nicole Trujillo [facility] Note Date/Time January 30, 2025 4: 56pm [facility] Medical Records Department [address] [place] [address] Progress Note - Hospitalist 01/30/25 0728 MR#: [id number] Acct: [id number] Name: TRENTON JACKSON Rep #:[id number] : 1970 54 From: Nicole Trujillo DO PCP: RUTH Lawrence, AEROSPACE ENGINEER-C Statu s:ADM REHAN Location: MS3 JY946-9 Reason for Visit Chief Complaint: Severe Right [...] 74.5 H, Lymph % (Auto) 18.4 L, Amador % (Auto) 5.4, Eos % (Auto) 0.4, [...] % (Auto) 59.7, Lymph % (Auto) 31.3, Amador % (Auto) 6.7, Eos % (Auto) 1.3, [...] inferior and superior pubic processes. Reading Location: [facility] Physical Exam Const alert, oriented x3, no [...] type 2 diabetes mellitus: QUALIFIERS: Diabetes mellitus meterman insulin use: with meterman use Qualified Code(s): E11.65 - Type 2 diabetes mellitus with hyperglycemia; Z79.4 - meterman (current) use of insulin PLAN: Plan Inability [...] -Full code Charges/Coding Visit Charges Inpatient E&M: 44779 Subs Hosp L2 01/30/25 1656 <Electronically signed by Nicole Trujillo DO> Cosigner Signature (if applicable): CC: ~ Signed [facility] Work Phone: 1([phone]) 246-427408-29-2025 History and physical note Author Latricia Burdick [facility] Note Date/Time January 30, 2025 6: 48am [facility] Medical Records Department [address] [place] [address] H&P Exam - Hospitalist 01/29/251928 MR#: [id number] Acct: [id number] Name: TRENTON JACKSON Rep #:[id number] : 1970 54 From: Latricia Hood DO PCP: RUTH Lawrence, AEROSPACE ENGINEER-C Statu s:ADM REHAN Location: MS3 SJ636-5 [facility] - General General Date of Admission: 01/29/25 [...] days of IV ertapenem who presents to [facility] ER complaining of severeRight hip pain [...] expected to be less than 2 midnights. [facility] Medical History L5 vertebral fracture [...] (congestive heart failure) CAD (coronary artery disease), big sandy coronary artery Home Medications ?Medication ?Instructions ?Recorded [...] IN 1 - 2 pump subdermal Q6H NM N FOR 02/14/24 09/06/24 History saltsable FEET [...] 74.5 H, Lymph % (Auto) 18.4 L, Amador % (Auto) 5.4, Eos % (Auto) 0.4, [...] inferior and superior pubic processes. Reading Location: [id number] Assessment & Plan Assessment/Plan (1) Fracture of pubic ramus: QUALIFIERS: Encounter type: initial encounter Fracture type: closed Laterality: right Qualified Code(s): S32.591A - Other specified fractureof right pubis, initial encounter for closed fracture (2) Severe pain: (3) Ambulatory dysfunction: (4) Hyperglycemia due to type 2 diabetes mellitus: QUALIFIERS: Diabetes mellitus meterman insulin use: with meterman use Qualified Code(s): E11.65 - Type 2 diabetes mellitus with hyperglycemia; Z79.4 - shelter (current) use of insulin (5) Overweight (BMI [...] 70 minutes. Charges/Coding Visit Charges OBSV E&M: 52513 Observ/hosp same date L2 01/30/25 0648 <Electronically signed by Latricia Yao DO> Cosigner Signature (if applicable): CC: RUTH AEROSPACE ENGINEERBrian Mckeon; Dr. Latricia Yao DO~ Signed [facility] Work Phone: [phone]) 389-339608-28-2025 Discharge summary Author Martina Martínez [facility] Note Date/Time January 29, 2025 9: 23pm [facility] Medical Records Department [address] [place] [address] Emergency Department Summary 01/29/25 MR#: [id number] Acct: [id number] Name: TRENTON JACKSON Rep #:[id number] : 1970 54 From: Martina Gibson PCP: RUTH Lawrence, AEROSPACE ENGINEER-C Statu s:ADM REHAN Location: MS3 MB051-8 HPI History of Present Illness Chief Complaint: [...] other complaints or concerns at this time. [facility] Medical History L5 vertebral fracture [...] (congestive heart failure) CAD (coronary artery disease), big sandy coronary artery Home Medications ?Medication ?Instructions ?Recorded [...] IN 1 - 2 pump subdermal Q6H NM N FOR 02/14/24 09/06/24 History saltsable FEET [...] 74.5 H Lymph % (Auto) 18.4 L Amador % (Auto) 5.4 Eos % (Auto) 0.4 [...] inferior and superior pubic processes. Reading Location: [facility] Management Discussion w/another healthcare provider: Hospitalist Discharge Plan Triage Chief Complaint: Lower Extremity Injury ED Provider: Martina Martínez Dx/Rx/DC Orders Clinical Impression: Fracture of pubic ramus, Severe pain, Ambulatory dysfunction, Hyperglycemia Primary Care Provider: Zohreh Mckeon Disposition Disposition: Acute Care Hospital [facility] What to do if you have Problems For any increased pain, shortness of breath, bleeding, nausea or vomiting, chestpain, or any unexpected problems, contact your Primary Care Provider. Call [facility] ([phone]) or report to the closest Emergency Room. Call 911 if necessary. 01/29/252122 <Electronically signed by Martina Martínez DO> Cosigner Signature (if applicable): CC: FERNANDOC AEROSPACE ENGINEER-C Zohreh Mckeon ~ Signed [facility] Work Phone: [phone] 560-809508-28-2025 Discharge summary [facility] Medical Records Department [address] [place] [address] Emergency Department Summary 01/29/25 MR#: [id number] Acct: [id number] Name: TRENTON JACKSON Rep #:[id number] : 1970 54 From: Martina Gibson PCP: Zohreh Mckeon Gideon, AEROSPACE ENGINEER-C Statu s:ADM REHAN Location: MS3 YZ433-9 HPI History of Present Illness Chief Complaint: [...] other complaints or concerns at this time. [facility] Medical History L5 vertebral fracture [...] (congestive heart failure) CAD (coronary artery disease), big sandy coronary artery Home Medications ?Medication ?Instructions ?Recorded [...] IN 1 - 2 pump subdermal Q6H NM N FOR 02/14/24 09/06/24 History saltsable FEET [...] 74.5 H Lymph % (Auto) 18.4 L Amador % (Auto) 5.4 Eos % (Auto) 0.4 [...] inferior and superior pubic processes. Reading Location: [facility] Management Discussion w/another healthcare provider: Hospitalist Discharge Plan Triage Chief Complaint: Lower Extremity Injury ED Provider: Martina Martínez Dx/Rx/DC Orders Clinical Impression: Fracture of pubic ramus, Severe pain, Ambulatory dysfunction, Hyperglycemia Primary Care Provider: Zohreh Mckeon Disposition Disposition: Acute Care Hospital [facility] What to do if you have Problems For any increased pain, shortness of breath, bleeding, nausea or vomiting, chestpain, or any unexpected problems, contact your Primary Care Provider. Call [facility] ([phone]) or report tothe closest Emergency Room. Call 911 if necessary. 01/29/252122 Cosigner Signature (if applicable): CC: RUTH AEROSPACE ENGINEER-C Zohreh Mckeon ~ Signed [facility]08-28-2025 Radiology Diagnostic study note [facility] Imaging Services [address] [place] [address] HIP, UNI W/ Pelvis 2-3 Views MR#: [id number] Acct: [id number] Name: TRENTON JACKSON Rep #: [id number] : 1970 F 54 From: Houston De Los Santos MD PCP: RUTH Lawrence, AEROSPACE ENGINEER-C Status: REG ER Study:HIP, UNI W/ Pelvis 2-3 Views Date of Ex am: 01/29/25 Exam# [id number] Ordering Dr: Gideon Martínez DO PROCEDURE: HIP, [...] inferior and superior pubic processes. Reading Location: [id number] CC: RUTH AEROSPACE ENGINEERBrian Mckeon; Dr. Martina Martínez, DO ~ Life Sciences Director: Signed [facility]07-11-2025 Radiology Diagnostic study [facility]07-11-2025 Radiology Diagnostic study [facility]04-20-2025 Hospital Discharge instructions Additional Instructions Follow-up with GI. Stay well-hydrated. Return for any other concerns. Can also follow-up with your PCP in the next 5 to 7 days.[facility] Work Phone: [phone] Consult note Author Josse Garcia [facility] Note Date/Time September 16, 2024 2:1 6pm [facility] Medical Records Department [address] [place] [address] Counseling Note - Pharmacy 09/16/24 1415 MR#: [id number] Acct: [id number] Name: TRENTON JACKSON Rep #:[id number] : 1970 54 From: Josse Garcia PCP: RUTH Lawrence, AEROSPACE ENGINEERBrian Statu s:ADM IN Y Location: [facility] KRW920- 1 Pharmacy [facility] Pharm[facility] Service has performed discharge [...] patient was counselled on new medications by senior pharmacy technician Balta. Medications at Discharge Home Medications aspirin [...] Signature (if applicable): Date CC: ~ Signed [facility] Work Phone: [phone]) 959-394104-15-2025 Discharge summary Author Latricia Aaron [facility] Note Date/Time September 16, 2024 12: 41pm [facility] Medical Records Department [address] [place] [address] Discharge Summary 09/16/24 1201 MR#: [id number] Acct: [id number] Name: TRENTON JACKSON Rep #:[id number] : 1970 54 From: Latricia Aaron MD PCP: RUTH Lawrence, GLENN Statu s:ADM IN Location: [place] [address] Providers Date of Admission: 09/09/24 Date of Discharge: 09/16/24 Primary Care Physician: RUTH Lawrence, AEROSPACE ENGINEERRamilaC Consultations 09/11/24 12:37 Consult: Infectious Disease Routine [...] % (Auto) Cancelled, Lymph % (Auto) Cancelled, Amador % (Auto) Cancelled, Eos % (Auto) Cancelled, [...] Drop Cells Cancelled, Ovalocytes Cancelled, Stomatocytes Cancelled, [place] Bodies Cancelled, Lore Cells Cancelled, Bite Cells [...] (Auto) 79.4 H, Lymph % (Auto) 13.0L, Amador % (Auto) 6.2, Eos % (Auto) 0.5, [...] Latricia Aaron Primary Care Provider: Zohreh Mckeon [facility] Consulting Providers: Rosaura Crane; Nichelle Mcneil; Brenda Posadas; Amish Tariq Discharge Orders/Prescriptions Prescriptions: New ertapenem 1 gram recon soln 1 g IV Q24H 7 Days Qty: 7 0RF Rx Instructions: Dx: emphysematous cystitis. Weekly bmp, LFT, and cbc while on iv abx. Fax to [phone]. acetaminophen 325 mg Tablet 650 mg PO [...] 0RF Referrals / Follow Up: Zohreh Mckeon, AEROSPACE ENGINEER-C [Primary Care Provider] - Within 1 Week Disposition Disposition (needs filled in before D/C Order can be placed): Home, Self Care Charges/Coding Visit Charges Inpatient E&M: 34857 Disch Hosp >30min 09/16/24 1241 <Electronically signed by Latricia Aaron MD> Cosigner Signature (if applicable): CC: RUTH AEROSPACE ENGINEER-C Zohreh Mckeon; Dr. Latricia Aaron MD~ Signed [facility] Work Phone: [phone] 226-661404-15-2025 Progress note Author Latricia Aaron [facility] Note Date/Time September 16, 2024 12: 01pm [facility] Medical Records Department [address] [facility] [place] [address] Progress Note - Hospitalist 09/16/24812 MR#: [id number] Acct: [id number] Name: TRENTON JACKSON Rep #:[id number] : 1970 54 From: Latricia Aaron MD PCP: RUTH Lawrence, AEROSPACE ENGINEER-C Statu s:ADM IN Location: [place] [address] Reason for Visit Reason for Visit: Diagnoses [...] Cosigner Signature (if applicable): CC: ~ Signed [facility] Work Phone: 1(391) 218-406604-15-2025 Progress note Author Nichelle Mcneil [facility] Note Date/Time September 16, 2024 10: 18am [facility] Medical Records Department [address] [place] [address] Progress Note - Infect Disease 09/16/24 1017 MR#: [id number] Acct: [id number] Name: TRENTON JACKSON Rep #:[id number] : 1970 54 From: Nichelle osborne MD PCP: Zohreh Mckeon, RUTH, AEROSPACE ENGINEER-C Statu s:ADM IN Location: [place] [address] Physical Exam Narrative Not feeling well, ongoing [...] Cosigner Signature (if applicable): CC: ~ Signed [facility] Work Phone: [phone]) 294-407704-15-2025 [facility]04-14-2025 Progress note Author Nichelle [facility] Note Date/Time September 15, 2024 2:2 7pm [facility] Medical Records Department [address] [place] [address] Progress Note - Infect Disease 09/15/24 1426 MR#: [id number] Acct: [id number] Name: TRENTON JACKSON Rep #:[id number] : 1970 54 From: Nichelle osborne MD PCP: RUTH Lawrence, AEROSPACE ENGINEER-C Statu s:ADM IN Location: [place] [address] Physical Exam Narrative Ongoing bladder pain, concerned [...] Cosigner Signature (if applicable): CC: ~ Signed [facility] Work Phone: 1(901) 472-943304-14-2025 Progress note Author Latricia Aaron [facility] Note Date/Time September 15, 2024 11: 29am [facility] Medical Records Department [address] [place] [address] Progress Note - Hospitalist 09/15/24721 MR#: [id number] Acct: [id number] Name: TRENTON JACKSON Rep #:[id number] : 1970 54 From: Latricia Aaron MD PCP: RUTH Lawrence, AEROSPACE ENGINEER-C Statu s:ADM IN Location: [place] [address] Reason for Visit Reason for Visit: Diagnoses [...] (Auto) 74.8 H, Lymph % (Auto) 14.8 L,Amador % (Auto) 8.1, Eos % (Auto) 1.2, [...] documentation, 38minutes Charges/Coding Visit Charges Inpatient E&M: 17033 Subs Hosp L2 09/15/24 1129 <Electronically signed by Latricia Aaron MD> Cosigner Signature (if applicable): CC: ~ Signed [facility] Work Phone: [phone]) 113-129504-14-2025 Consult note Author Amish Tariq [facility] Note Date/Time September 15, 2024 11: 13am [facility] Medical Records Department [address] [place] [address] Consultation - Urology 09/15/24 1112 MR#: [id number] Acct: [id number] Name: TRENTON JACKSON Rep #:[id number] : 1970 54 From: Amish Tariq MD PCP: Zohreh Mckeon, [facility], AEROSPACE ENGINEER-C Statu s:ADM IN Location: [place] [address] HPI Consult Data Date of Consult: 09/15/24 [...] intervention necessary from urology. Call w questions. [facility] Medical History L5 vertebral fracture [...] (congestive heart failure) CAD (coronary artery disease), big sandy coronary artery Home Medications ?Medication ?Instructions ?Recorded [...] IN 1 - 2 pump subdermal Q6H NM N FOR 02/14/24 09/06/24 History saltsable FEET [...] (Auto) 74.8 H, Lymph % (Auto) 14.8 L,Amador % (Auto) 8.1, Eos % (Auto) 1.2, [...] MD> Cosigner Signature (if applicable): CC: RUTH AEROSPACE ENGINEER-C Zohreh Mckeon~ Signed [facility] Work Phone: [phone] Progress note Author Brenda Posadas [facility] Note Date/Time September 14, 2024 4:3 5pm [facility] Medical Records Department [address] [place] [address] Progress Note - Hospitalist 09/14/24 0910 MR#: [id number] Acct: [id number] Name: TRENTON JACKSON Rep #:[id number] : 1970 54 From: Brenda Posadas MD PCP: RUTH Lawrence, AEROSPACE ENGINEER-C Statu s:ADM IN Location: [place] [address] Reason for Visit Reason for Visit: Diagnoses [...] (Auto) 72.3 H, Lymph % (Auto) 19.3, Amador % (Auto) 6.0, Eos % (Auto) 1.3, [...] documentation, 38Minutes Charges/Coding Visit Charges Inpatient E&M: 97862 Subs Hosp L2 09/14/24 1635 <Electronically signed by Brenda Posadas MD> Cosigner Signature (if applicable): CC: ~ Signed [facility] Work Phone: [phone] 393-772404-12-2025 Progress note Author Brenda Posadas [facility] Note Date/Time September 13, 2024 5:3 4pm [facility] Medical Records Department [address] [place] [address] Progress Note - Hospitalist 09/13/24 0938 MR#: [id number] Acct: [id number] Name: TRENTON JACKSON Rep #:[id number] : 1970 54 From: Brenda Posadas MD PCP: Zohreh Mckeon, [facility], AEROSPACE ENGINEER-C Statu s:ADM IN Location: [place] [address] Reason for Visit Reason for Visit: Diagnoses [...] Clarity Clear, Urine pH 6.0, Ur Specific [place] 1.010, Urine Protein 15 H, Urine Glucose [...] 75.6 H, Lymph % (Auto) 14.4 L, Amador % (Auto) 6.9, Eos % (Auto) 1.6, [...] documentation, 40Minutes Charges/Coding Visit Charges Inpatient E&M: 44416 Subs Hosp L2 09/13/24 1734 <Electronically signed by Brenda Posadas MD> Cosigner Signature (if applicable): CC: ~ Signed [facility] Work Phone: [phone] 378-698404-11-2025 Progress note Author Brenda Posadas [facility] Note Date/Time September 12, 2024 4:2 3pm [facility] Medical Records Department [address] [place] [address] Progress Note - Hospitalist 09/12/24 1615 MR#: [id number] Acct: [id number] Name: TRENTON JACKSON Rep #:[id number] : 1970 54 From: Brenda Posadas MD PCP: RUTH Lawrence, AEROSPACE ENGINEER-C Statu s:ADM IN Location: [place] [address] Reason for Visit Reason for Visit: Diagnoses [...] Neut % (Auto) 67.6, Lymph % (Auto) 23.2,Amador % (Auto) 5.8, Eos % (Auto) 1.8, [...] documentation, 38Minutes Charges/Coding Visit Charges Inpatient E&M: 90967 Subs Hosp L2 09/12/24 6500 <Electronically signed by Brenda Posadas MD> Cosigner Signature (if applicable): CC: ~ Signed [facility] Work Phone: [phone] 339-329604-11-2025 Consult note Author Nichelle Mcneil [facility] Note Date/Time September 12, 2024 2:5 8pm [facility] Medical Records Department [address] [place] [address] Consultation - Infectious Dx 09/12/24 1453 MR#: [id number] Acct: [id number] Name: TRENTON JACKSON Rep #:[id number] : 1970 54 From: Nichelle osborne MD PCP: Zohreh Mckeon, [facility], AEROSPACE ENGINEER-C Statu s:ADM IN Location: [place] [address] Assessment & Plan Assessment/Plan (1) Emphysematous cystitis: [...] performed and neg except as noted above. [facility] Medical History L5 vertebral fracture [...] (congestive heart failure) CAD (coronary artery disease), big sandy coronary artery Home Medications ?Medication ?Instructions ?Recorded [...] IN 1 - 2 pump subdermal Q6H NM N FOR 02/14/24 09/06/24 History saltsable FEET [...] Neut % (Auto) 67.6, Lymph % (Auto) 23.2,Amador % (Auto) 5.8, Eos % (Auto) 1.8, [...] MD> Cosigner Signature (if applicable): CC: RUTH AEROSPACE ENGINEER-C Zohreh Mckeon~ Signed [facility] Work Phone: [phone] 710-377404-10-2025 Progress note Author Brenda Posadas [facility] Note Date/Time September 11, 2024 4:1 0pm [facility] Medical Records Department [address] [place] [address] Progress Note - Hospitalist 09/11/24 1606 MR#: [id number] Acct: [id number] Name: TRENTON JACKSON Rep #:[id number] : 1970 54 From: Brenda Posadas MD PCP: RUTH Lawrence, AEROSPACE ENGINEER-C Statu s:ADM IN Location: [facility] PUE765- 1 Reason for Visit Reason for Visit: [...] % (Auto) 68.0, Lymph % (Auto) 22.6, Amador % (Auto) 6.3, Eos % (Auto) 1.9, [...] the colon consistent with constipation. Reading Location: [facility] Physical Exam Narrative General: Alert, oriented, no [...] documentation, 37Minutes Charges/Coding Visit Charges Inpatient E&M: 43168 Subs Hosp L2 09/11/24 1610 <Electronically signed by Brenda Posadas MD> Cosigner Signature (if applicable): CC: ~ Signed [facility] Work Phone: [phone]) 247-734504-10-2025 Radiology Diagnostic study [facility]04-09-2025 Progress note Author Brenda Posadas [facility] Note Date/Time September 10, 2024 5:34 pm [facility] Medical Records Department [address] [place] [address] Progress Note - Hospitalist 09/10/24 1731 MR#: [id number] Acct: [id number] Name: TRENTON JACKSON Rep #:[id number] : 1970 54 From: Brenda Posadas MD PCP: RUTH Lawrence, AEROSPACE ENGINEER-C Statu s:ADM IN Location: [place] [address] Reason for Visit Reason for Visit: Diagnoses [...] (Auto) 72.8 H, Lymph % (Auto) 18.5L, Amador % (Auto) 6.0, Eos % (Auto) 1.6, [...] Posadas MD Charges/Coding Visit Charges Inpatient E&M: 13361 Subs Hosp L1 09/10/24 1734 <Electronically signed by Brenda Posadas MD> Cosigner Signature (if applicable): CC: ~ Signed [facility] Work Phone: 1(745) 357-252304-08-2025 Progress note Author Brenda Posadas [facility] Note Date/Time September 09, 2024 6:46 pm [facility] Medical Records Department [address] [place] [address] Progress Note - Hospitalist 09/09/24 1839 MR#: [id number] Acct: [id number] Name: TRENTON JACKSON Rep #:[id number] : 1970 54 From: Brenda Posadas MD PCP: RUTH Lawrence, AEROSPACE ENGINEER-C Statu s:ADM REHAN Location: [place] [address] Reason for Visit Reason for Visit: Diagnoses [...] Clarity Clear, Urine pH 6.0, Ur Specific [place] 1.010, Urine Protein 30 H, Urine Glucose [...] % (Auto) 67.1, Lymph % (Auto) 23.9, Amador % (Auto) 5.5, Eos % (Auto) 2.3, [...] documentation, 40Minutes Charges/Coding Visit Charges Inpatient E&M: 42933 Subs Hosp L2 09/09/24 2518 <Electronically signed by Brenda Posadas MD> Cosigner Signature (if applicable): CC: ~ Signed [facility] Work Phone: [phone]) 544-126004-07-2025 Progress note Author Brenda Posadas [facility] Note Date/Time September 08, 2024 7:37 pm [facility] Medical Records Department [address] [place] [address] Progress Note - Hospitalist 09/08/24 1000 MR#: [id number] Acct: [id number] Name: TRENTON JACKSON Rep #:[id number] : 1970 54 From: Brenda Posadas MD PCP: RUTH Lawrence, AEROSPACE ENGINEER-C Statu s:ADM REHAN Location: [place] [address] Reason for Visit Reason for Visit: Diagnoses [...] % (Auto) Cancelled, Lymph % (Auto) Cancelled, Amador % (Auto) Cancelled, Eos % (Auto) Cancelled, [...] Drop Cells Cancelled, Ovalocytes Cancelled, Stomatocytes Cancelled, [place] Bodies Cancelled, [place] Cells Cancelled, Bite Cells Cancelled, Crenated Cell [...] 77.8 H, Lymph % (Auto) 14.5 L, Amador % (Auto) 5.0, Eos % (Auto) 1.7, [...] % (Auto) 64.6, Lymph % (Auto) 25.7, Amador% (Auto) 6.0, Eos % (Auto) 2.4, Baso [...] recommend MRI for further characterization. [facility] Narrative General: Resting comfortably but [...] documentation, 52Minutes Charges/Coding Visit Charges Inpatient E&M: 35756 Subs Hosp L3 09/08/24 1640 <Electronically signed [...] Cosigner Signature (if applicable): cc: ~* Signed [facility] Work Phone: 1(880) 700-463404-07-2025 History and physical note Author Rosaura Crane [facility] Note Date/Time September 07, 2024 10:0 0pm [facility] Medical Records Department [address] [place] [address] H&P Exam - Hospitalist 09/07/242133 MR#: [id number] Acct: [id number] Name: TRENTON JACKSON Rep #:[id number] : 1970 54 From: Rosaura Crane MD PCP: RUTH Lawrence, AEROSPACE ENGINEER-C Statu s:ADM REHAN [facility] HPI - General General Date of [...] which resolved who re- presents to the [facility] ED on 09/07/24 with history [...] not obtained upon requested evaluation of patient. [facility] Medical History L5 vertebral fracture [...] (congestive heart failure) CAD (coronary artery disease), big sandy coronary artery Home Medications ?Medication ?Instructions ?Recorded [...] IN 1 - 2 pump subdermal Q6H NM N FOR 02/14/24 Unknown History saltsable FEET [...] % (Auto) Cancelled, Lymph % (Auto) Cancelled, Amador % (Auto) Cancelled, Eos % (Auto) Cancelled, [...] Drop Cells Cancelled, Ovalocytes Cancelled, Stomatocytes Cancelled, [place] Bodies Cancelled, Lore Cells Cancelled, Bite Cells [...] 77.8 H, Lymph % (Auto) 14.5 L, Amador % (Auto) 5.0, Eos % (Auto) 1.7, [...] recommend MRI for further characterization. [facility] Assessment & Plan Assessment/Plan (1) Intractable [...] which resolved who re- presents to the [facility] ED on 09/07/24 with history [...] 16 minutes. Charges/Coding Visit Charges Inpatient E&M: 09463 Init Hosp L3 Procedures Hospitalists Procedures: 50147 Advncd Care Plan 30 Min 09/07/24 2200 <Electronically signed by Rosaura Crane MD> Cosigner Signature (if applicable): CC: VSC AEROSPACE ENGINEER-C Zohreh Mckeon; Dr. Rosaura Crane MD~ Signed [facility] Work Phone: 1(384) 354-391004-06-2025 Discharge summary Author Davis Ibarra [facility] Note Date/Time September 07, 2024 9:32 pm [facility] Medical Records Department [address] [place] [address] Emergency Department Summary 09/07/24 MR#: [id number] Acct: [id number] Name: TRENTON JACKSON Rep #:[id number] : 1970 54 From: Davis Gibson PCP: RUTH Lawrence, AEROSPACE ENGINEERBrian Statu s:REG ER Location: ED HPI History of Present Illness Chief Complaint: Nausea/Vomiting PFSH [facility] Medical History L5 vertebral fracture [...] (congestive heart failure) CAD (coronary artery disease), big sandy coronary artery Home Medications ?Medication ?Instructions ?Recorded [...] IN 1 - 2 pump subdermal Q6H NM N FOR 02/14/24 Unknown History saltsable FEET [...] reviewed, Vital signs reviewed Constitutional: please see [facility] HENT: MMM Eyes: Pupils equal round [...] from others: none Consults: none [facility] Narrative: The patient was initially [...] PCU oBS This note was generated with Clickst dictation software. It may contain incorrectwords, spelling, [...] H Lymph % (Auto) Cancelled 14.5 L Amador % (Auto) Cancelled 5.0 Eos % (Auto) [...] Drop Cells Cancelled Ovalocytes Cancelled Stomatocytes Cancelled [place] Bodies Cancelled Lore Cells Cancelled Bite Cells [...] recommend MRI for further characterization. [facility] T[facility] Chief Complaint: Nausea/Vomiting [...] Care Provider: Zohreh Mckeon Referrals: Zohreh Mckeon, AEROSPACE ENGINEERBrian [Primary Care Provider] - Print Language: Burundian What to do if you have Problems For any increased pain, shortness of breath, bleeding, nausea or vomiting, chestpain, or any unexpected problems, contact your Primary Care Provider. Call [facility] ([phone]) or report to the closest Emergency Room. Call 911 if necessary. 09/07/242131 <Electronically signed by Davis Ibarra DO> Cosigner Signature (if applicable): CC: RUTH Mckeon ~ Signed [facility] Work Phone: 1(815) 641-483204-06-2025 Radiology Diagnostic study [facility]04-06-2025 Discharge summary Author Davis Ibarra [facility] Note Date/Time September 07, 2024 9:32 pm [facility] Medical Records Department [address] [place] [address] Emergency Department Summary 09/07/24 MR#: [id number] Acct: [id number] Name: TRENTON JACKSON Rep #:[id number] : 1970 54 From: Davis Gibson PCP: RUTH Lawrence, AEROSPACE ENGINEERBrina Statu s:REG ER Location: ED HPI History of Present Illness Chief Complaint: Nausea/Vomiting [facility] Medical History L5 vertebral fracture [...] (congestive heart failure) CAD (coronary artery disease), big sandy coronary artery Home Medications ?Medication ?Instructions ?Recorded [...] IN 1 - 2 pump subdermal Q6H NM N FOR 02/14/24 Unknown History saltsable FEET [...] from others: none Consults: none [facility] Narrative: The patient was initially [...] PCU oBS This note was generated with Clickst dictation software. It may contain incorrectwords, spelling, [...] H Lymph % (Auto) Cancelled 14.5 L Amador % (Auto) Cancelled 5.0 Eos % (Auto) [...] Drop Cells Cancelled Ovalocytes Cancelled Stomatocytes Cancelled [place] Bodies Cancelled Lore Cells Cancelled Bite Cells [...] recommend MRI for further characterization. [facility] Triage Chief Complaint: Nausea/Vomiting [...] Care Provider: Zohreh Mckeon Referrals: Zohreh Mckeon, AEROSPACE ENGINEER-C [Primary Care Provider] - Print Language: Burundian What to do if you have Problems For any increased pain, shortness of breath, bleeding, nausea or vomiting, chestpain, or any unexpected problems, contact your Primary Care Provider. Call [facility] ([phone]) or report to the closest Emergency Room. Call 911 if necessary. 09/07/242131 <Electronically signed by Davis Ibarra DO> Cosigner Signature (if applicable): CC: RUTH AEROSPACE ENGINEER-C Zohreh Mckeon ~ Signed [facility] Work Phone: 1(490) 419-522504-04-2025 Discharge summary Author Zack Card [facility] Note Date/Time September 05, 2024 3:35 pm [facility] Medical Records Department [address] [place] [address] Emergency Department Summary 09/05/24 MR#: [id number] Acct: [id number] Name: TRENTON JACKSON Rep #:[id number] : 1970 54 From: Zack Han PCP: RUTH Lawrence, AEROSPACE ENGINEER-C Statu s:REG ER Location: ED HPI History [...] to latex. History of cholecystectomy and appendectomy. [facility] Medical History L5 vertebral fracture [...] (congestive heart failure) CAD (coronary artery disease), [place] coronary artery Home Medications ?Medication ?Instructions ?Recorded [...] IN 1 - 2 pump subdermal Q6H NM N FOR 02/14/24 Unknown History saltsable FEET [...] I discussed her MRI review noting her L3-G5bsnjjhz disc. Discussed likely causing her radicular symptoms. [...] clinician: N/A This note was generated with WizIQation software. It may contain incorrectwords, spelling, and [...] 79.7 H Lymph % (Auto) 14.1 L Amador % (Auto) 5.1 Eos % (Auto) 0.2 [...] Active Staff] - 3-5 Days Zohreh Mckeon, AEROSPACE ENGINEER-C [Primary Care Provider] - Activity Restrictions/Additional Instructions: [...] your glucose with your insulin. Print Language: Burundian Disposition Disposition: Home, Self Care What to do if you have Problems For any increased pain, shortness of breath, bleeding, nausea or vomiting, chestpain, or any unexpected problems, contact your Primary Care Provider. Call [facility] ([phone]) or report to the closest Emergency Room. Call 911 if necessary. 09/05/24 1736 <Electronically signed by Zack Han> Cosigner Signature (if applicable): CC: RUTH AEROSPACE ENGINEER-C Zohreh Mckeon ~ Signed [facility] Work Phone: 1(511) 782-373704-01-2025 Consult note Author Haven Viramontes [facility] Note Date/Time September 02, 2024 2:33 pm [facility] Medical Records Department [address] [place] [address] Counseling Note - Pharmacy 09/02/24 1432 MR#: [id number] Acct: [id number] Name: TRENTON JACKSON Rep #:[id number] : 1970 54 From: Haven Viramontes PCP: RUTH Lawrence, AEROSPACE ENGINEER-C Statu s:ADM IN Y Location: [place] [address] Pharmacy [facility] has performed discharge medication reconciliation and counseling for this patient. 1. ACETAMINOPHEN 1000MG PO Q8 2. OXYCODONE 5MG Q4H PRN PAIN - Do not take with [place] 3. STOP GABAPENTIN The patient's discharge medication [...] Signature (if applicable): Date CC: ~ Signed [facility] Work Phone: 1(152) 753-160504-01-2025 Discharge summary Author Latricia Aaron [facility] Note Date/Time September 02, 2024 12:4 7pm [facility] Medical Records Department [facility] [place] [address] Discharge Summary 09/02/24 1232 MR#: [id number] Acct: [id number] Name: TRENTON JACKSON Rep #:[id number] : 1970 54 From: Latricia Aaron MD PCP: RUTH Lawrence, AEROSPACE ENGINEER-C Statu s:ADM IN Location: [facility] ML231-4 Providers Date of Admission: 08/26/24 Date of Discharge: 09/02/24 Primary Care Physician: RUTH Lawrence, AEROSPACE ENGINEER-C Consultations 08/26/24 20:30 Consult: Vascular Surgery Routine [...] for PT OT eval and social services coordinator to assist with discharge planning ? 09/02/2024 [...] 80.7 H, Lymph % (Auto) 14.4 L, Amador % (Auto) 4.0, Eos % (Auto) 0.2, [...] Latricia Aaron Primary Care Provider: Zohreh Mckeon [facility] Consulting Providers: Brenda Posadas; Riccardo Ng; [...] 3XD Referrals / Follow Up: Zohreh Mckeon, AEROSPACE ENGINEER-C [Primary Care Provider] - Within 1 Week Disposition Disposition (needs filled in before D/C Order can be placed): Home Health Service Charges/Coding Visit Charges Inpatient E&M: 17737 Disch Hosp >30min 09/02/24 1247 <Electronically signed by Latricia Aaron MD> Cosigner Signature (if applicable): CC: VSC AEROSPACE ENGINEER-C Zohreh Mckeon; Dr. Latricia Aaron MD~ Signed [facility] Work Phone: 1(843) 387-710204-01-2025 [facility]04-01-2025 Progress note Author Latricia Aaron [facility] Note Date/Time September 02, 2024 9:14 am [facility] Medical Records Department [address] [place] [address] Progress Note - Hospitalist 09/02/24 0751 MR#: [id number] Acct: [id number] Name: TRENTON JACKSON Rep #:[id number] : 1970 54 From: Latricia Aaron MD PCP: Zohreh Mckeon, VSC, AEROSPACE ENGINEER-C Statu s:ADM IN Location: [facility] [id number] Reason for Visit Reason for Visit: Diagnoses [...] 80.7 H, Lymph % (Auto) 14.4 L, Amador % (Auto) 4.0, Eos % (Auto) 0.2, [...] for PT OT eval and social services coordinator to assist with discharge planning 3. Peripheral [...] documentation, 36minutes Charges/Coding Visit Charges Inpatient E&M: 53371 Subs Hosp L2 09/02/24 0914 <Electronically signed by Latricia Aaron MD> Cosigner Signature (if applicable): CC: ~ Signed [facility] Work Phone: 1(994) 225-713103-31-2025 Progress note Author Latricia Aaron [facility] Note Date/Time September 01, 2024 12: 47pm [facility] Medical Records Department [address] [facility] [place] [address] Progress Note - Hospitalist 09/01/24 0819 MR#: [id number] Acct: [id number] Name: TRENTON JACKSON Rep #:[id number] : 1970 54 From: Latricia Aaron MD PCP: Zohreh Mckeon, RUTH, AEROSPACE ENGINEER-C Statu s:ADM IN Location: [address] Reason for Visit Reason for Visit: [...] for PT OT eval and social services coordinator to assist with discharge planning 3. Peripheral [...] 38 minutes Charges/Coding Visit Charges Inpatient E&M: 13428 Subs Hosp L2 09/01/24 1247 <Electronically signed by Latricia Aaron MD> Cosigner Signature (if applicable): CC: ~ Signed [facility] Work Phone: 1(615) 966-345103-30-2025 Progress note Author Nicole Trujillo [facility] Note Date/Time August 31, 2024 2:1 2pm [facility] Medical Records Department [address] [place] [address] Progress Note - Hospitalist 08/31/24 0854 MR#: [id number] Acct: [id number] Name: TRENTON JACKSON Rep #:[id number] : 1970 54 From: Nicole Trujillo DO PCP: RUTH Lawrence, AEROSPACE ENGINEER-C Statu s:ADM IN Location: AL3 PM600-9 Reason for Visit Reason for Visit: Left [...] for tomorrow Charges/Coding Visit Charges Inpatient E&M: 04613 Subs Hosp L1 08/31/24 1412 <Electronically signed by Nicole Trujillo DO> Cosigner Signature (if applicable): CC: ~ Signed [facility] Work Phone: 1(437) 202-643303-29-2025 Progress note Author Nicole Trujillo [facility] Note Date/Time August 30, 2024 3:3 1pm [facility] Medical Records Department [address] [place] [address] Progress Note - Hospitalist 08/30/24 1528 MR#: [id number] Acct: [id number] Name: TRENTON JACKSON Rep #:[id number] : 1970 54 From: Nicole Trujillo DO PCP: RUTH Lawrence, AEROSPACE ENGINEER-C Statu s:ADM IN Location: [place] [address] Reason for Visit Reason for Visit: Left [...] awaiting pre-CERT. Charges/Coding Visit Charges Inpatient E&M: 91284 Subs Hosp L1 08/30/24 1531 <Electronically signed by Nicole Trujillo DO> Cosigner Signature (if applicable): CC: ~ Signed [facility] Work Phone: 1(446) 305-629503-28-2025 Progress note Author Nicole Trujillo [facility] Note Date/Time August 29, 2024 5:0 3pm [facility] Medical Records Department [address] [place] [address] Progress Note - Hospitalist 08/29/24 1647 MR#: [id number] Acct: [id number] Name: TRENTON JACKSON Rep #:[id number] : 1970 54 From: Nicole Trujillo DO PCP: RUTH Lawrence, AEROSPACE ENGINEER-C Statu s:ADM IN Location: [place] [address] Reason for Visit Reason for Visit: Left [...] % (Auto) 64.7, Lymph % (Auto) 24.4, Amador% (Auto) 7.6, Eos % (Auto) 2.4, Baso [...] awaiting pre-CERT. Charges/Coding Visit Charges Inpatient E&M: 00313 Subs Hosp L1 08/29/24 1703 <Electronically signed by Nicole Trujillo DO> Cosigner Signature (if applicable): CC: ~ Signed [facility] Work Phone: 1([phone]) 625-979403-28-2025 Discharge summary Author Nicole Trujillo [facility] Note Date/Time August 29, 2024 9:5 0am [facility] Medical Records Department [address] [place] [address] Transfer to [facility] MR#: [id number] Acct: [id number] Name: TRENTON JACKSON Rep #:[id number] : 1970 54 From: Nicole Trujillo DO PCP: RUTH Lawrence, AEROSPACE ENGINEER-C Statu s:ADM IN Certification of patient admission REQUIRED AT TIME OF ADMISSION. I CERTIFY THAT POST-HOSPITAL ECF SERVICES ARE REQUIRED TO BE GIVEN ON AN IN-PATIENT BASIS BECAUSE OF THE ABOVE NAMED PATIENT'S NEED FOR RETIREMENT CARE ON A CONTINUING BASIS FOR THE [...] Nicole Trujillo Primary Care Provider: Zohreh Mckeon [facility] Consulting Providers: Brenda Posadas; Riccardo Ng [...] 0RF Referrals / Follow Up: Zohreh Mckeon, AEROSPACE ENGINEER-C [Primary Care Provider] - 08/29/24 0950 <Electronically signed by Nicole Trujillo DO> Cosigner Signature (if applicable): CC: VSC AEROSPACE ENGINEER-C Zohreh Mckeon; Dr. Riccardo Ng MD; Dr. Brenda Posadas MD ~ [facility] Work Phone: 1(201) 127-378903-27-2025 Progress note Author Nicole Trujillo [facility] Note Date/Time August 28, 2024 6:0 1pm [facility] Medical Records Department [address] [place] [address] Progress Note - Hospitalist 08/28/24 5117 MR#: [id number] Acct: [id number] Name: TRENTON JACKSON Rep #:[id number] : 1970 54 From: Nicole Trujillo DO PCP: Zohreh Mckeon Gideon, AEROSPACE ENGINEER-C Statu s:ADM IN Location: MS3 PP168-3 Reason for Visit Reason for Visit: Left [...] % (Auto) 66.7, Lymph % (Auto) 22.7, Amador% (Auto) 6.7, Eos % (Auto) 3.0, Baso [...] -Full code Charges/Coding Visit Charges Inpatient E&M: 78961 Subs Hosp L2 08/28/24 1801 <Electronically signed by Nicole Trujillo DO> Cosigner Signature (if applicable): CC: ~ Signed [facility] Work Phone: 1(229) 544-265503-26-2025 Progress note Author Nicole Trujillo [facility] Note Date/Time August 27, 2024 2:5 8pm [facility] Medical Records Department [address] [place] [address] Progress Note - Hospitalist 08/27/24 0725 MR#: [id number] Acct: [id number] Name: TRENTON JACKSON Rep #:[id number] : 1970 54 From: Nicole Trujillo DO PCP: RUTH Lawrence, AEROSPACE ENGINEER-C Statu s:ADM IN Location: ICU CVICU20 2-1 Reason for Visit Reason for Visit: Left leg pain Subjective Subjective Patient is a 54-year-old white female with multiple comorbidities and complianceissues who presented to the emergency department at [facility] on 08/26/2024 with a chief complaint [...] % (Auto) 69.6, Lymph % (Auto) 20.9, Amador % (Auto) 5.7, Eos % (Auto) 2.8, [...] (Auto) 72.4 H, Lymph % (Auto) 20.6, Amador % (Auto) 4.4, Eos % (Auto) 1.6, [...] IMPRESSION: No acute cardiopulmonary process. Reading Location: [facility] Venous Doppler Study 08/26/24 10:40 Interpretation Summary [...] radiology consultation may be appropriate. Reading Location: [place] [address] Physical Exam Const alert, oriented x3 and [...] -Full code Charges/Coding Visit Charges Inpatient E&M: 79526 Subs Hosp L2 08/27/24 1458 <Electronically signed by Nicole Trujillo DO> Cosigner Signature (if applicable): CC: ~ Signed [facility] Work Phone: [phone]) 882-162803-26-2025 Consult note Author Riccardo Ng [facility] Note Date/Time August 27, 2024 7:3 3am [facility] Medical Records Department [address] [place] [address] Consultation - Surgical 08/27/24 0705 MR#: [id number] Acct: [id number] Name: TRENTON JACKSON Rep #:[id number] : 1970 54 From: Riccardo Ng MD PCP: Zohreh Mckeon, RUTH, AEROSPACE ENGINEER-C Statu s:ADM IN Location: ICU CVICU20 2-1 [...] change and minimal relief with pain medications. [facility] Medical History ESBL (extended spectrum [...] (congestive heart failure) CAD (coronary artery disease), big sandy coronary artery Home Medications ?Medication ?Instructions ?Recorded [...] IN 1 - 2 pump subdermal Q6H NM N FOR 02/14/24 Unknown History saltsable FEET [...] % (Auto) 69.6, Lymph % (Auto) 20.9, Amador % (Auto) 5.7, Eos % (Auto) 2.8, [...] (Auto) 72.4 H, Lymph % (Auto) 20.6, Amador % (Auto) 4.4, Eos % (Auto) 1.6, [...] IMPRESSION: No acute cardiopulmonary process. Reading Location: [facility] Venous Doppler Study 08/26/24 10:40 Interpretation Summary [...] radiology consultation may be appropriate. Reading Location: [facility] Charges/Coding Visit Charges Inpatient E&M: 59834 Init Hosp L3 08/27/24 0733 <Electronically signed by Riccardo Ng MD> Cosigner Signature (if applicable): CC: RUTH Mckeon~ Signed [facility] Work Phone: 1(405) 456-669303-26-2025 Discharge summary Author Jeison Abarms [facility] Note Date/Time August 27, 2024 7:0 7am [facility] Medical Records Department [address] [place] [address] Emergency Department Summary 08/26/24 MR#: [id number] Acct: [id number] Name: TRENTON JACKSON Rep #:[id number] : 1970 54 From: Jeison Gibson PCP: RUTH Lawrence, AEROSPACE ENGINEER-C Statu s:ADM IN Location: ICU CVICU20 2-1 [...] failure but states she has heart problems. [facility] <Dr. Jeison Abrams DO - Last Filed: 08/26/24 15:33> [facility] Medical History ESBL (extended spectrum [...] (congestive heart failure) CAD (coronary artery disease), big sandy coronary artery Home Medications ?Medication ?Instructions ?Recorded [...] IN 1 - 2 pump subdermal Q6H NM N FOR 02/14/24 Unknown History saltsable FEET [...] Abrams, DO - Last Filed: 08/26/24 15:33> [facility] Narrative Medical decision making narrative: Differential [...] % (Auto) 69.6 Lymph % (Auto) 20.9 Amador % (Auto) 5.7 Eos % (Auto) 2.8 [...] IMPRESSION: No acute cardiopulmonary process. Reading Location: [facility] Venous Doppler Study 08/26/24 10:40 Interpretation Summary Deep veins of the left lower extremity are patent and compressible segmentally. There is no evidence of left lower extremity deep vein thrombosis. The left great saphenous vein appears patent andcompressible segmentally. Incidental finding, right SFA stent occlusion Ordering Physician: Jeison Abrams Referring Physician: Nathaly Lainez [facility] Performed By: Héctor Ayoub RVT Lower Extremity CTA 08/26/24 14:00 IMPRESSION: Technically limited study as described. Severe multilevel disease as described level by level above. Interventional radiology consultation may be appropriate. Reading Location: [facility] <Dr. Vaughn Daugherty, DO - Last Filed: 08/27/24 03:29> [facility] Narrative Medical decision making narrative: Differential [...] % (Auto) 69.6 Lymph % (Auto) 20.9 Amador % (Auto) 5.7 Eos % (Auto) 2.8 [...] IMPRESSION: No acute cardiopulmonary process. Reading Location: [facility] Venous Doppler Study 08/26/24 10:40 Interpretation Summary [...] radiology consultation may be appropriate. Reading Location: [place] [address] Discharge Plan Disposition Disposition: Acute Care Hospital [facility] Discharge Date/Time: 08/26/24 20:14 What to do if you have Problems For any increased pain, shortness of breath, bleeding, nausea or vomiting, chestpain, or any unexpected problems, contact your Primary Care Provider. Call [facility] ([phone]) or report to the closest Emergency Room. Call 911 if necessary. 08/27/24 0707 <Electronically signed by Jeison Abrams DO> Cosigner Signature (if applicable): 08/27/24 0329 <Electronically signed by Vaughn Daugherty DO> CC: RUTH AEROSPACE ENGINEERBrian Mckeon ~ Signed [facility] Work Phone: 1(777) 356-721703-25-2025 History and physical note Author Brenda Posadas [facility] Note Date/Time August 26, 2024 8:1 8pm [facility] Medical Records Department [address] [place] [address] H&P Exam - Hospitalist 08/26/242002 MR#: [id number] Acct: [id number] Name: TRENTON JACKSON Rep #:[id number] : 1970 54 From: Brenda Posadas MD PCP: Zohreh Mckeon Gideon, AEROSPACE ENGINEER-C Statu s:ADM IN Location: ICU CVICU20 2-1 HPI - General General Date of Admission: 08/26/24 Date of Service: 08/26/24 Chief Complaint: Left lower extremity pain HPI Narrative TRENTON JACKSON, is a 54-year-old female with history of coronary artery disease, combined heart failure, hypertension, diabetes presented to [facility] ED 08/26/2024 due to pain and [...] and is not sure what is what [facility] Medical History ESBL (extended spectrum [...] (congestive heart failure) CAD (coronary artery disease), big sandy coronary artery Home Medications ?Medication ?Instructions ?Recorded [...] IN 1 - 2 pump subdermal Q6H NM N FOR 02/14/24 Unknown History saltsable FEET [...] % (Auto) 69.6, Lymph % (Auto) 20.9, Amador % (Auto) 5.7, Eos % (Auto) 2.8, [...] IMPRESSION: No acute cardiopulmonary process. Reading Location: [facility] Venous Doppler Study 08/26/24 10:40 Interpretation Summary [...] radiology consultation may be appropriate. Reading Location: [facility] Assessment & Plan Assessment/Plan (1) Acute [...] 76 Minutes Charges/Coding Visit Charges Inpatient E&M: 00339 Init Hosp L3 08/26/242017 <Electronically signed by Brenda Posadas MD> Cosigner Signature (if applicable): CC: [facility] AEROSPACE ENGINEER-C Zohreh Mckeon; Dr. Brenda Posadas MD~ Signed [facility] Work Phone: 1(147) 379-419903-25-2025 Evaluation note* Diagnosis Onset Date Resolution Status [...] vomiting reso lved September 09, 2024 7:01pm [facility] Work Phone: 1(524) 770-982703-25-2025 Radiology Diagnostic study [facility]03-25-2025 Radiology Diagnostic study [facility]01-30-2025 [facility]01-26-2025 Evaluation note* Diagnosis Onset Date Resolution [...] diabetes mellitus acute August 26, 2024 8:03pm [facility] Work Phone: 1(563) 242-401401-26-2025 Evaluation note* Diagnosis Onset Date Resolution Status [...] and vomiting acute September 07, 2024 9:35pm [facility] Work Phone: 1(172) 506-754301-26-2025 Evaluation note* Diagnosis Onset Date Resolution Status [...] and vomiting acute September 09, 2024 7:01pm [facility] Work Phone: 1(476) 179-610801-26-2025 Evaluation note* Diagnosis Onset Date Resolution Status [...] and vomiting resolved September 09, 2024 7:01pm [facility] Work Phone: 1(767) 669-817412-21-2024 Hospital Discharge instructions Patient Education 05/23/2024 23:02:36 [...] for heart disease or after a stroke) Jqmh-lkg-thefaiz medicines for diarrhea, nausea, and vomiting are generally OK unless you have bleeding, fever, or severe abdominal pain. General care If symptoms are severe, rest at home for the next 24 hours, or until you are feeling better. Washing your hands with soap and water, or using alcohol-based hand labor relations or personnel negotiator is the best way to stop the [...] after. Wash your hands or use alcohol-based labor relations or personnel negotiator after using cutting boards, countertops, and knives that have been in contact with raw food. Dry your hands with a single use towel. Keep uncooked meats away from cooked and tapkq-fd-nxw foods. Follow-up care Follow up with your [...] every 6 hours), or very dark urine [id number] [employer]. [address] [place] [address], [place] [address]. All rights reserved. This information is not intended as a substitute for professional medical care. Always follow yourhealthcare professional's instructions. Follow Up Care 05/23/2024 19:13:17 With:BRITTANEY PEARSON MD Address: [address] [place] [address]- When:2-4 days [facility] 12-20-2024 Note Discharge Instructions Thank you for allowing [facility] to assist you with your healthcare needs. The following is importantdischarge information regarding your hospital visit. Diagnosis from Today's Visit Vomiting What to Do Next Instructions from Your Care Team No qualifying data available. Post Acute Orders No qualifying data available. You Need to Schedule the Following Appointments Follow Up with BRITTANEY PEARSON MD When:Within 2-4 days Where:[address] [place] [id number]- Allergies Latex Medications Please ask your primary [...] for heart disease or after a stroke) Xsgm-kzu-zcxyyal medicines for diarrhea, nausea, and vomiting are generally OK unless you have bleeding, fever, or severe abdominal pain. General care If symptoms are severe, rest at home for the next 24 hours, or until you are feeling better. Washing your hands with soap and water, or using alcohol-based hand labor relations or personnel negotiator is the best way to stop the [...] after. Wash your hands or use alcohol-based labor relations or personnel negotiator after using cutting boards, countertops, and knives that have been in contact with raw food. Dry your hands with a single use towel. Keep uncooked meats away from cooked and klhap-ra-mzu foods. Follow-up care Follow up with your [...] every 6 hours), or very dark urine 1496-1693 [employer]. [address] [place] [address]. All rights reserved. This information is not intended as a substitute for professional medical care. Always follow yourhealthcare professional's instructions. Additional Information VACCINATE! IT SAVES LIVES! Members of the community who have not yet received the COVID-19 vaccine and would like to receive it can visit one of [facility] vaccine clinics. There are many vaccine clinic locations within the [facility]. For locations and available times, please visit www.gettheshot.coronavirus.[place].gov/. It is important to note that some COVID mobile vaccine clinics are held outdoors and may be canceled in rainy or stormy conditions. To learn more about pediatric vaccinations (ages 5-11), we invite you to visit the [facility] webpage. https://www.[facility].org/pages/9088-Fyoru-Ulqaxqcrgah-Lcuyshwepw-Yyijz-Xwr stions.htmlTo learn more about the COVID-19 vaccine, we invite you to visit the CDC website for a list of frequently asked questions. https://www.cdc.gov/coronavirus/2019-ncov/vaccines/faq.html [facility] Patient Portal Access Instructions: Stay connected with your healthcare team and access your personal medical information anytime with the [facility] Patient Portal. If you would like a full copy of your medical records please contact the [facility] Medical Records Department Sunday through Sunday between 8a.m. and 4:30p.m. Please follow the directions below to access the portal: 1.Access the email account you provided upon registration to the [facility].2.Look for an invitation email from [facility].3.Open the email and access the invitation link: Accept Invitation to [facility].Fill in the required stephens to create your [...] you will allow to register on the [facility] Patient Portal for access to your information. You can also access the [employer] Patient Portal on the [employer]. Simply click on Health Records under [employer] and then click on the [facility] logo. [...] Call your local pharmacy or go to http://bit.jigl/1X6Xg7g to find one close to you.3.Make use of household items: Use cat litter or old coffee grounds to dispose medications if other options arenot available. Mix your drugs with these household products, seal them in an airtight container andthrow it into the garbage. Call [facility]: [phone] to be sure your drugs can be [...] aware that I should contact my doctor. Patient/Short Order Cook Signature: Date/Time: Relationship to Patient: Witness Name/Signature: Date/Time: [facility]12-20-2024 Note* Exam Date Time Procedure Performing Provider Status 05/23/24 7:51 PM EKG [ED AO] - CV RAYMUNDO VIEIRA DO; Auth (Verified) ECG Final Report Sinus rhythm Incomplete left bundle branch block Left ventricular hypertrophy Anterior Q waves, possibly due to LVH Electronic Signature: RAYMUNDO VIEIRA DO 05/23/2024 20:06:14 [facility]11-26-2024 [facility] 04-25-2024 Evaluation note* Diagnosis Onset Date Resolution Status Admit Date Chronic pain resolved April 3:52pm Dehydration resolved April 3:52pm Hyperglycemia resolved April 252023 3:52pm Hyponatremia resolved April 3:52pm Leukocytosis resolved April 3:52pm Nausea vomiting and diarrhea resolve d April 25, 2024 3:52pm Tachycardia resolved April 3:52pm Candidiasis of breast inactive [facility] 2023 3:52pm Colitis inactive April 25, 2024 3:52pm Debility inactive April 25, 2024 3:52pm Generalized weakness [facility] 2023 3:52pm UTI (urinary tract infection) acute June 29, 2024 8:31pm Colitis deleted June 29, 2024 8:31pm Dehydration resolved June 29, 2024 8:31pm Sepsis due to gram-negative UTI deleted June 29 8:31pm [facility] Work Phone: 1(740) 159-908806-18-2024 Telephone encounter Note* Telephone Encounter - Stephanie De La Cruz - 11/20/2023 8:48 AM EDT The patient was discharged from [facility] 10-20-23 with an order to schedule with the Heart Failure Clinic. The Clinic reached out to the patient with no response. Therefore, this is considered a deferral of the Clinic's services at this time. [facility]06-18-2024 Miscellaneous Notes* Telephone Encounter - Stephanie De La Cruz - 11/20/2023 8:48 AM EDT The patient was discharged from [facility] 10-20-23 with an order to schedule with the Heart Failure Clinic. The Clinic reached out to the patient with no response. Therefore, this is considered a deferral of the Clinic's services at this time. documented in this encounterGrant Hospital05-20-2024 Telephone encounter Note * Telephone Encounter - Stephanie De La Cruz - 10/22/2023 9:35 AM EDT Patient was discharged from [facility] 10-20-23 with an order to schedule with the Heart Failure Clinic. However, the patient was then [facility] a [facility]. A letter was mailedto the patient asking them to contact the Clinic upon discharge from the facility. [facility]05-20-2024 Miscellaneous Notes* Telephone Encounter - Stephanie De La Cruz - 10/22/2023 9:35 AM EDT Patient was discharged from [facility] 10-20-23 with an order to schedule with the Heart Failure Clinic. However, the patient was then immediately admitted to a penitentiary facility. A letter was mailedto the patient asking them to contact the Clinic upon discharge from the facility. documented in this encounterGrant Hospital05-17-2024 NoteHNO ID: [id number] Author: MICHAEL NGUYỄN LSW Service: Care Management Author Type: Director Of Billing Type: Care Mgt Progress Note Filed: 10/19/2023 14:54 Note Text: CARE MANAGEMENT DISCHARGE NOTE SERVICE DATE: October 19, 2023 SERVICE TIME: 1:56 PM Admission Date: 10/18/2023 LOS: 0 days Discharge Arrangement Discharge Arrangement: Shelter Facility Was an expedited discharge program used?: No Services Arranged Return to SNF Provider Name: [facility] Caregiver Assessment Caregiver is ready, willing and able to meet the patient's needs as recommended by the inter-professional team: No Caregiver needed Transportation Arrangements Transportation Arrangements: Ambulance Transportation Agency and Phone #:: [facility] ( [facility] ) [phone] / [phone] Date of Trip: 10/19/23 Time of Trip: 0800 Type of Service: BLS Non-emergency Is Patient Medicaid Pending?: No Was transportation financial coverage discussed with family?: Patient Dude Ranch Manager Location: [facility] Destination: [facility] Handoff Communication: Handoff to: Primary Care Physician Primary Care Physician Name/Phone: Nathaly Leonard, Nathaly Leonard Additional Information: The facility in [facility] reports they can accept the patient [...] to Hosp-Admission (Current) from 10/18/2023 in [facility] Shelter Facility Agency [facility] SIGNATURE: SANDRA Kennedy PATIENT NAME: Trenton Jackson DATE: October 19, 2023 TIME: 1:56 PM CONTACT #: [phone] [place] [facility]24 Note HNO ID: [id number] Author: MICHAEL NGUYỄN LSW Service: Care Management Author Type: Director Of Billing Type: Care Mgt Initial Assessment Filed: 10/19/2023 15:16 Note Text: CARE MANAGEMENT: ASSESSMENT AND DISCHARGE PLAN SERVICE DATE: October 19, 2023 SERVICE TIME: 1:00 PM PCP: Nathaly Leonard Primary Contact: Extended Emergency Contact Information Primary Emergency Contact: Curry Jackson Jr Address: [address] [place] [address] [facility] Mobile Relation: Spouse Secondary Emergency Contact: Rebecca Dueñas Address: [place] [address] [facility] Relation: Mother Admission Status: Observation Insurance Provider: [facility] MEDICAID Discharge Planning requested by: Per Department Practice Potential Transition Plans Shelter Facility/Intermediate Care Facility Advance Directives Current Advance Directive: None Adhesive Bandage Making Operator Attempted to Assist with AD Completion: [...] Be able to go home, General wellness Cameron of Choice Explained: Cameron of Choice Given: Yes Level of Care Discussed: Shelter Facility Are you interested in bedside delivery of your medications? No Discharge Planning Participant(s): Patient Patient/Family Comments: Caregiver Assessment: Caregiver is ready, willing and able to meet the patient's needs as recommended by the inter-professional team: No Caregiver needed Transport at Discharge: Transportation Arrangements: Ambulance Transportation Agency and Phone #:: [facility] ( [facility] ) [phone] / [phone] Date of Trip: 10/19/23 Time of Trip: 0800 Type of Service: BLS Non-emergency Is Patient Medicaid Pending?: No Was transportation financial coverage discussed with family?: Patient Dude Ranch Manager Location: [facility] Destination: [facility] Needs Prior to Discharge: Needs [...] her hospital bed. Support: Rebecca Dueñas (mother) [phone] and Curry Jackson Jr (Spouse) [phone] Pharmacy: [facility] [address] [place] [address] PCP: Nathaly Leonard, Nathaly Leonard The patient was at [facility] 09-02-23 till 09-08-23 after fall and found to have Closed displaced intertrochanteric fracture of right femur. Ortho did surgery and the patient went to [facility]. The patient reports she wants return [...] 19, 2023 TIME: 2:59 PM CONTACT #: [phone] [place] [facility]05-16-2024 Telephone encounter Note* Telephone Encounter - Ethel Alonso - 10/18/2023 3:00 PM EDT Spoke to Cindi - she [facility] for transport. She did state that sometimes they can belt picker in 15 minutes but sometimes it can take hours. Cindi does have direct phone # and knows I am in office until 530pm should she need to reach the office, after that to call the main office phone #. Also verified [facility] ED address. Thank you Ethel Shah [facility]05-16-2024 Miscellaneous Notes* Telephone Encounter - Ethel Alonso - 10/18/2023 3:00 PM EDT Spoke to Cindi - she is going to contact [facility] to arrange for transport. She did state that sometimes they can belt picker in 15 minutes but sometimes it can take hours. Cindi does have direct phone # and knows I am in office until 530pm should she need to reach the office, after that to call the main office phone #. Also verified [facility] ED address. Thank you Ethel Shah * Telephone Encounter - Ethel Alonso - 10/18/2023 10:41 AM EDT Returned Sara's call from [facility] regarding Trenton - last nurse we spoke to (Bryant), they were to take patient to [place] ED and follow up with local ortho md. Called and spoke to Cindi - when order was given to Bryant in regards to giving an antibiotic & taking to [place] ED for surgical consult if no improvement - there was no follow through on that end. The [facility] physician did give an antibiotic 09/27/23 - 10/04/23 and nothing was done after that until Cindi saw Trenton on 10/15/23 & sent her to [place] ED. The ED gave her pain medication [...] May for review Thank you Ethel Dave [place] [employer] documented in this encounterGrant Hospital05-16-2024 Telephone encounter Note * Telephone Encounter - Ethel Alonso - 10/18/2023 10:41 AM EDT Returned Sara's call from [facility] regarding Trenton - last nurse we spoke to (Bryant), they were to take patient to [place] ED and follow up with local ortho md. Called and spoke to Cindi - when order was given to Bryant in regards to giving an antibiotic & taking to [place] ED for surgical consult if no improvement - there was no follow through on that end. The [facility] physician did give an antibiotic 09/27/23 - 10/04/23 and nothing was done after that until Cindi saw Trenton on 10/15/23 & sent her to [place] ED. The ED gave her pain medication [...] May for review Thank you Ethel Dave Closet Organizer Alyssa [facility]05-15-2024 Telephone encounter Note* Telephone Encounter - Ethel Alonso - 10/17/2023 4:43 PM EDT Left 2 messages [facility]05-15-2024 Miscellaneous Notes* Telephone Encounter - Ethel Alonso - 10/17/2023 4:43 PM EDT Left 2 messages * Telephone Encounter - Etehl Alonso - 10/09/2023 10:51 AM EDT ----- [...] if other than patient: Bryant @ [facility] Return call to if other than patient: same Best contact number: [phone] Thank you, Pauly Heredia October 09, 2023 9:46 AM documented in this encounterGrant Hospital05-13-2024 Discharge summary Author Jeremiah Rawls [facility] October 15, 2023 5:33pm Note Date/Time October 15, 2023 4:51p m [facility] Medical Records Department [address] [place] [address] Emergency Department Summary 10/15/23 MR#: [id number] Acct: [id number] Name: TRENTON JACKSON Rep #:[id number] : 1970 53 From: Jeremiah Rawls MD PCP: [facility] atus:[facility] ER Location: ED HPI History of Present Illness Chief Complaint: Lower Extremity Injury Narrative Narrative: 53-year-old female past medical history of right hip arthroplasty status post fracture at the end of September around [facility]. She states that she was trying to go to the bathroom, but did not make it and had fallen. She sustained a fracture of her right hip. She states that she was sent to [facility] for surgery. She is now to penitentiary [...] facility wants her wound evaluated as well. [facility] Medical History Acute dyspnea Aftercare following surgery of the circulatory system Alcohol abuse Amputation toe CAD (coronary artery disease), big sandy coronary artery CHF (congestive heart failure) Depression [...] come pick it up [facility] - Activity Restrictions/Additional Instructions: Continue your previous pain medications. Your postoperative wound does not appear to be acutely infected. Disposition Disposition: Home, Self Care What to do if you have Problems For any increased pain, shortness of breath, bleeding, nausea or vomiting, chestpain, or any unexpected problems, contact your Primary Care Provider. Call [facility] ([phone]) or report to the closest Emergency Room. Call 911 if necessary. 10/15/23 5487 <Electronically signed by Jeremiah Rawls MD> Cosigner Signature (if applicable): CC: [facility] ~ Signed [facility] Work Phone: 1(365) 476-248605-07-2024 Telephone encounter Note* Telephone Encounter - Ethel [...] if other than patient: Bryant @ [facility] Return call to if other than patient: same Best contact number: [phone] Thank you, Pauly Heredia October 09, 2023 9:46 AM [facility]05-06-2024 Telephone encounter Note* Telephone Encounter - Ethel Alonso - 10/08/2023 3:45 PM EDT Left message for Bryant to get an update on Trenton. Last message to her was instructions from Dr. May regarding giving her antibiotics, taking her to [place] emergency department if no improvements for a surgical consult. Thank you Ethel Shah [facility]05-06-2024 Miscellaneous Notes* Telephone Encounter - Ethel Alonso - 10/08/2023 3:45 PM EDT Left message for Bryant to get an update on Trenton. Last message to her was instructions from Dr. May regarding giving her antibiotics, taking her to [place] emergency department if no improvements for a [...] which facility was the patient seen at: [facility] Was an appointment scheduled (Y/N): no-unable to schedule per tool Person calling if other than patient: Bryant([facility]) Return call to if other than patient: Bryant Best contact number: [phone] Thank you, Melany Simon October 03, 2023 1:23 PM documented in this encounterGrant Hospital05-02-2024 Telephone encounter Note * Telephone Encounter [...] which facility was the patient seen at: [facility] Was an appointment scheduled (Y/N): no-unable to schedule per tool Person calling if other than patient: Bryant([facility]) Return call to if other than patient: Bryant Best contact number: [phone] Thank you, Melany Simon October 03, 2023 1:23 PM [facility]05-01-2024 Telephone encounter Note* Telephone Encounter - [...] he would like her taken to the [place] Emergency Department for a surgical consult. Left my direct phone number so Bryant can call to let me know status. Thank you Ethel Shah [facility]05-01-2024 Miscellaneous Notes* Telephone Encounter - Ethel [...] he would like her taken to the [place] Emergency Department for a surgical consult. Left [...] Person calling if other than patient: BRYANT [facility] Return call to if other than patient: bryant Best contact number: [phone] Thank you, Agata Das October 02, 2023 11:16 AM documented in this encounterGrant Hospital04-30-2024 Telephone encounter Note * Telephone Encounter [...] Person calling if other than patient: BRYANT [facility] Return call to if other than patient: bryant [facility] contact number: [phone] Thank you, Agata Das October 02, 2023 11:16 AM [facility]04-29-2024 Telephone encounter Note* Telephone Encounter - Ethel Alonso - 10/01/2023 11:04 AM EDT Left message w/Clare. She will have Stephania call me when she is back on the floor with an update on Trenton. All Clare can say is that she knows Trenton is still on the antibiotics. Gave Clare my direct phone #. Thank you Ethel Shah [facility]04-29-2024 Miscellaneous Notes* Telephone Encounter - Ethel [...] wound to review. thx documented in this encounterGrant Hospital04-29-2024 Telephone encounter Note * Telephone Encounter - Ethel Alonso - 10/01/2023 10:38 AM EDT ----- Message from Diya May MD sent at 09/30/2023 1:53 PM EDT ----- Please get me an update on her status. Also, a new picture of the wound to review. thx [facility]04-25-2024 Telephone encounter Note* Telephone Encounter - Ethel Alonso - 09/27/2023 3:34 PM EDTSummary: ABSCESS AT INCISION Received message from Stephania at [facility] stating Trenton is forming an [...] a local orthopedic since she is in [place]. Dr. Posadas - [phone] He would like if the facility could send a picture of the incision and to start her on Doxycycline 100mg BID. Called Stephania with instructions and Dr. Posadas' phone number. Thank you Ethel Shah [facility]04-25-2024 Miscellaneous Notes* Telephone Encounter - Ethel Alonso - 09/27/2023 3:34 PM EDTSummary: ABSCESS AT INCISION Received message from Stephania at [facility] stating Trenton is forming an [...] a local orthopedic since she is in [place]. Dr. Posadas - [phone] He would like if the facility could send a picture of the incision and to start her on Doxycycline 100mg BID. Called Stephania with instructions and Dr. Posadas' phone number. Thank you Ethel Shah documented in this encounterGrant Hospital04-12-2024 Miscellaneous Notes* Telephone Encounter - Ethel Alonso - 09/14/2023 2:37 PM EDT Left a message for Nurse Mgr Bryant Ruiz at the rehab facility ([phone]) that we do not need toschedule an appointment at this time but we would like to have a disc with an x-ray of Trenton's pelvis for review 09/17/23. Thank you Ethel Shah * Telephone Encounter - Ethel Alonso - 09/12/2023 9:24 AM EDT ----- Message from Evelyne Madsen sent at 09/11/2023 2:07 PM EDT ----- Regarding: Fmfqh-Xxslda-ip follow up post op- hip fracture Subject [...] which facility was the patient seen at: [facility] Was an appointment scheduled (Y/N): N/A Person calling if other than patient: [facility] Return call to if other than patient: REHAB Best contact number: [phone] Thank you, Evelyne Madsen September 11, 2023 2:07 PM documented in this encounterGrant Hospital04-05-2024 NoteHNO ID: [id number] Author: DANI LAGOS, CHAYITO Service: Nursing Author Type: Registered Nurse Type: Nursing Progress Note Filed: 09/07/2023 15:39 Note Text: Other: Okay to give oxy early prior to 1700 d/c per Yecenia [facility]04-05-2024 NoteHNO ID: [id number] Author: KAYLA JOHNSON, ? Service: Care Management Author Type: ? Type: Care Mgt Progress Note Filed: 09/07/2023 14:05 Note Text: [facility] PRECERT NOTE [employer] MEDICA[employer] approved Shelter Facility for [facility]/. Precert approved through 09/18. The [facility] Medicaid precert for [facility] in CS portal is approved for 09/06 to 09/18 Reference #: [id number] --[id number] -- ID: [id number] For any additional questions regarding approvals, transport or care management needs, please contact the CM assigned to this patient in the Treatment Team. SIGNATURE: Kayla Johnson DATE: September 07, 2023 TIME: 2:05 [facility]04-05-2024 NoteHNO ID: [id number] Author: MONICA CHAPARRO APRN.CNP Service: General Surgery Author Type: Nurse Practitioner Type: Progress Notes Filed: 09/07/2023 09:11 Note Text: Trauma Surgery Progress Note SERVICE DATE: 09/07/2023 Trauma Service Pager: For questions or concerns Mon-Fri 6a-5p please page [phone]. After 5pm and on Weekends and Holidays, please page [phone] if in ICU or [phone] if on RNF. SUBJECTIVE: NAEON. Patient nauseated [...] 0659 09/07/23 07 - 09/08/23 0659 Shift 5300-7571 6257-3663 9151-5025 24 Hour Total 2691-3511 5196-4054 9148-8955 24 Hour Total INTAKE Shift Total OUTPUT Urine 900 1000 1900 Urine Not Saved. 1 x 1 x Output ( External Collection Device 09/04/23 8311) 593 7763 1900 Emesis 50 50 Emesis (ml) 50 [...] 09/02/2023 Fall 09/02/2023 Coronary artery disease involving big sandy coronary artery of big sandy heart without angina pectoris 07/21/2018 Cannabis use disorder, mild, abuse 07/20/2018 Chronic Uncontrolled type 2 diabetes mellitus with hyperglycemia, with long-term current use of insulin ([facility]) 06/08/2018 Chronic systolic heart failure ([facility]) 06/08/2018 Anxiety and depression 06/08/2018 Cardiomyopathy ([facility]) 12/02/2017 Essential hypertension 02/20/2017 Assessment: 53 year old female s/p mechanical GLF ([place] trans (more content not included)...[facility]04-04-2024 NoteHNO ID: [id number] Author: MELISSA PHAM PA-C Service: General Surgery Author Type: Physician Biomedical Specialist Type: Progress Notes Filed: 09/06/2023 14:41 Note [...] intertrochanteric femur fracture as result of trauma [facility]04-04-2024 NoteHNO ID: [id number] Author: MELISSA PHAM PA-C Service: General Surgery Author Type: Physician Biomedical Specialist Type: Progress Notes Filed: 09/06/2023 11:21 Note Text: Trauma Surgery Progress Note SERVICE DATE: 09/06/2023 Trauma Service Pager: For questions or concerns Mon-Fri 6a-5p please page [phone]. After 5pm and on Weekends and Holidays, please page [phone] if in ICU or [phone] if on RNF. SUBJECTIVE: NAEON. Patient continues [...] - 09/06/2365809/06/23 07 - 09/07/23 0659 Shift 1502-6048 8770-5948 7851-1792 24 Hour Total 3921-8476 6245-0074 5076-7322 24 Hour Total INTAKE Shift Total OUTPUT Urine 1486 482 4330 Output ( External Collection Device 09/04/23 1025) 2086 464 6634 Shift Total 1821 925 4137 Weight (kg) 72.6 72.6 72.6 72.6 72.6 [...] 09/02/2023 Fall 09/02/2023 Coronary artery disease involving big sandy coronary artery of big sandy heart without angina pectoris 07/21/2018 Cannabis use disorder, mild, abuse 07/20/2018 Chronic Uncontrolled type 2 diabetes mellitus with hyperglycemia, with long-term current use of insulin ([facility]) 06/08/2018 Chronic systolic heart failure ([facility]) 06/08/2018 Anxiety and depression 06/08/2018 Cardiomy (more content not included)...[facility]04-03-2024 NoteHNO ID: [id number] Author: TERRIE URIOSTEGUI RN Service: Care Management [...] disorder, mild, abuse Coronary artery disease involving big sandy coronary artery of big sandy heart without angina pectoris Trauma Fall Resolved Problems: * No resolved hospital problems. * Physician: Jozef Barros DO SIGNATURE: Terrie Uriostegui RN PATIENT NAME: Trenton Jackson DATE: September 05, 2023 TIME: 4:09 PM PAGER/CONTACT #: [phone] [facility] Health Care04-03-2024 NoteHNO ID: [id number] Author: TERRIE URIOSTEGUI RN Service: Care Management Author Type: Registered Nurse Type: Care Mgt Progress Note Filed: 09/05/2023 15:44 Note Text: CARE MANAGEMENT PROGRESS NOTE SERVICE DATE: 09/05/2023 SERVICE TIME: 2:52 PM LOS: 3 days Cameron of Choice Given: Yes Level of Care Discussed: Shelter Facility Financial Disclosure Provided: No Provider List: Shelter Facility Provider list within the patient's requested geographic area shared with the patient/family: Yes within: 15 miles of zip code: [address] Quality and resource use metrics shared with the patient that are relevant to the patient's goals of care and treatment preferences:: Yes DC Plan: SNF , discussed pt/ot recs for SNF, pt agreeable to snf list, snf list provided, FOC is [facility]; agreeable to sending additional referrals to [facility], [facility] , and [facility] ; referrals sent Barriers to dc: precert needs to be initiated Anticipated dc date: 09/05-09/06 Transportation: pt will likely need transportation arrangements [place] ADDENDUM: [facility] still has not accepted, pt agreeable to starting precert with [facility], precert requested; Attestation note in place on 09/04 still needs cosigned SIGNATURE: Terrie Uriostegui RN PATIENT NAME: Trenton Jackson DATE: September 05, 2023 TIME: 2:52 PM PAGER/CONTACT #: [phone] [facility]04-03-2024 NoteHNO ID: [id number] Author: DIYA MAY MD Service: Care Management [...] disorder, mild, abuse Coronary artery disease involving big sandy coronary artery of big sandy heart without angina pectoris Trauma Fall Resolved Problems: * No resolved hospital problems. * Physician: Jahaira Alfaro MD SIGNATURE: Terrie Uriostegui RN PATIENT NAME: Trenton Jackson DATE: September 05, 2023 TIME: 11:55 AM PAGER/CONTACT #: [phone] [facility]inte [facility]04-03-2024 NoteHNO ID: [id number] Author: ROBERTO DAS PA-C Service: General Surgery Author Type: Physician Biomedical Specialist Type: Progress Notes Filed: 09/05/2023 07:58 Note [...] 09/04/23699 - 09/05/2365809/05/23699 - 09/06/23 0659 Shift 6986-6433 0198-9106 9836-5591 24 Hour Total 4364-5889 1696-8070 8637-6520 24 Hour Total INTAKE PO 120 120 [...] femur (HCC) 09/02/2023 Dyslipidemia (more content not included)...[facility] 09-05-2023 NoteHNO ID: [id number] Author: NICHELLE VIRAMONTES MD Service: Orthopaedic Surgery [...] from 5p-6a and on weekends for any issues.[facility]04-02-2024 NoteHNO ID: [id number] Author: NORM RUEDA LSW Service: Care Management Author Type: Director Of Billing Type: Care Mgt Progress Note Filed: 09/04/2023 [...] or get rid of a hangover (eye cotton opener)? No 6. CAGE Screening? No 7. If [...] resources. SIGNATURE: SANDRA Milner PATIENT NAME: Trenton Jacskon DATE: September 04, 2023 TIME: 10:39 AM PAGER/CONTACT #: [phone] [facility] Health Care 09-04-2023 NoteHNO ID: [id number] Author: ROBERTO DAS PA-C Service: General Surgery Author Type: Physician Biomedical Specialist Type: Progress Notes Filed: 09/04/2023 08:51 Note Text: Trauma Surgery Progress Note SERVICE DATE: 09/04/2023 Trauma Service Pager: For questions or concerns Mon-Fri 6a-5p please page [phone]. After 5pm and on Weekends and Holidays, please page [phone] if in ICU or [phone] if on RNF. SUBJECTIVE: Patient is POD#1 [...] - 09/04/23 0609/04/23699 - 09/05/23 0659 Shift 7152-2869 1510-4525 0724-2352 24 Hour Total 9616-9689 3116-1480 5672-9461 24 Hour Total INTAKE PO 120 120 [...] insight into current situa (more content not included)...[facility]04-02-2024 NoteHNO ID: [id number] Author: DIYA MAY MD Service: Orthopaedic Surgery [...] from 5p-6a and on weekends for any issues.[facility]04-01-2024 NoteHNO ID: [id number] Author: SAVANNA FREEMAN LSW Service: Care Management Author Type: Director Of Billing Type: Care Mgt Progress Note Filed: 09/03/2023 16:06 Note Text: CARE MANAGEMENT PROGRESS NOTE SERVICE DATE: 09/03/2023 SERVICE TIME: 4:05 PM LOS: 1 day SW Consult SW attempted to see pt to complete trauma assessment, pt off the floor. SIGNATURE: SANDRA Barbosa PATIENT NAME: Trenton Jackson DATE: September 03, 2023 TIME: 4:05 PM PAGER/CONTACT #: [phone] and [place] par[facility] 09-03-2023 NoteHNO ID: [id number] Author: GHASSAN PÉREZ APRN.CRNA Service: Anesthesiology Author Type: Nurse Airplane Fueler Type: Anesthesia Procedure Notes Filed: 09/03/2023 12:36 [...] September 03, 2023 TIME: 12:35 PM CSN: [id number] and Morehouse parishes04-01-2024 NoteHNO ID: [id number] Author: MOODY HODGE DO Service: Anesthesiology Author [...] September 03, 2023 TIME: 12:34 PM CSN: [id number] and Morehouse parishes04-01-2024 NoteHNO ID: [id number] Author: GHASSAN PÉREZ APRN.CRNA Service: Anesthesiology Author Type: Nurse Airplane Fueler Type: Anesthesia Procedure Notes Filed: 09/03/2023 12:34 Note Text: ANESTHESIOLOGY PROCEDURE NOTE Airway General Information Procedure Start Time/Medication Administration: 09/03/2023 12:10 PM Patient location during procedure: OR Timeout Performed Pre-procedure: timeout performed Consent Obtained: Yes Patient identity confirmed: arm band and patient Staffing LEATHER FINISHER: Ghassan Pérez APRN.LEATHER FINISHER Performed by: REGINA Indications and Patient Condition [...] no Airway not difficult SIGNATURE: Ghassan Pérez APRN.LEATHER FINISHER PATIENT NAME: Trenton Jackson DATE: September 03, 2023 TIME: 12:34 PM CSN: [id number] and Morehouse parishes04-01-2024 NoteHNO ID: [id number] Author: DARLYN JASSO RN Service: Care Management Author Type: Registered Nurse Type: Care Mgt Initial Assessment Filed: 09/03/2023 11:08 Note Text: CARE MANAGEMENT: ASSESSMENT AND DISCHARGE PLAN SERVICE DATE: September 03, 2023 SERVICE TIME: 10:55 AM PCP: Nathaly Leonard Primary Contact: Extended Emergency Contact Information Primary Emergency Contact: Curry Jackson Jr Address: [address] [place] [address] [facility] Mobile Relation: Spouse Secondary Emergency Contact: Rebecca Dueñas Address: [place] [address] [facility] Relation: Mother Admission Status: Inpatient Insurance Provider: [employer] Discharge Planning requested by: Per Department Practice Potential Transition Plans To Be Determined Advance Directives Current Advance Directive: None Adhesive Bandage Making Operator Attempted to Assist with AD Completion: [...] Ambulate a little better, Ambulate without stopping Cameron of Choice Explained: Cameron of Choice Given: Yes Level of Care Discussed: Shelter Facility;Inpatient Rehab Facility Are you interested in [...] Xarelto although patient denies), HTN, HLD, GERD, DE, RA, seizures, GWYN, tobacco abuse, polysubstance abuse, prior incisional hernia repair, who presents as trauma transfer from [place]. Per EMS, patient feel on the wet [...] this. She wants to go close to [place] where she and her family lives. The patient will need transportation arranged at d/c. SIGNATURE: Darlyn Jasso RN PATIENT NAME: Trenton Jackson DATE: September 03, 2023 TIME: 10:54 AM CONTACT #: [phone] [facility] Health Care04-01-2024 NoteHNO ID: [id number] Author: MONICA CHAPARRO APRN.CNP Service: General Surgery [...] 09/02/23699 - 09/03/2365809/03/23699 - 09/04/23 0659 Shift 1578-4225 4235-3045 2505-8664 24 Hour Total 3308-9492 7775-1073 2477-6970 24 Hour Total INTAKE Shift Total OUTPUT [...] femur (HCC) 09/02/2023 Coronary artery disease involving big sandy coronary artery of big sandy heart without angina pectoris 07/21/2018 Uncontrolled type 2 diabetes mellitus with hyperglycemia, with long-term current use of i (more content not included)...[facility] 09-03-2023 NoteHNO ID: [id number] Author: ALLI GARCÍA MD Service: Orthopaedic Surgery [...] 06/08/2018 Alli García MD Orthopaedic Surgery Pager #[phone] September 02[place]03-31-2024 NoteHNO ID: [id number] Author: VIRGINIA BOSE sparkle Service: Pharmacy Author Type: Pharmacist Type: Plan of Care Filed: 09/06/2023 15:35 Note Text: PHARMACY MEDICATION REVIEW Patient Name: Ternton Jackson : 1970 The following medications were updated within the JAVA J2EE APPLICATION DEVELOPER medication list based on discharge note from [place] 06/2023 - patient likely nonadherent with medications prior to admission based on fill history: Medications ADDED to JAVA J2EE APPLICATION DEVELOPER medication list Carvedilol 12.5 mg tablet; [...] Take 50 gm daily Medications CHANGED on JAVA J2EE APPLICATION DEVELOPER medication list Escitalopram 10 mg tablet; Take 10 mg daily Medications REMOVED from JAVA J2EE APPLICATION DEVELOPER medication list Acetaminophen (no recent fills) [...] Medication history completed by: Pharmacist: Virginia Bose [facility] Source of history: Care Everywhere records Medication nonadherence identified: Unable to assess Reconciliation completed: Yes Completed by: YOLANDA Patient interested in Bedside Delivery Services or using OP Pharmacy at discharge? Unable to assess Preferred outpatient pharmacy: [facility] [address] [place] [address] - [address] - [phone] [facility] [address] [place] [address] - [address] - [phone] Allergies: Latex Itching Comment:Red and dry cracking [...] daily. Facility-Administered Medications: None (more content not included)...[facility]03-31-2024 History of Past illness Narrative* Problem Noted [...] of this encounter (statuses as of 09/14/2023) [facility]01-13-2024 Discharge summary Author Jeremy Alexander [facility] June 16, 2023 9:45am Note Date/Time June 16, 2023 9 :20am [facility] Medical Records Department [address] [place] [address] Discharge Summary 06/16/23 0920 MR#: [id number] Acct: [id number] Name: TRENTON JACKSON Rep #:[id number] : 1970 52 From: Jeremy Ahuja PCP: [facility] atus:ADM IN Location: [place] [address] Providers Date of Admission: 06/13/23 Date of Discharge: 06/16/23 Primary Care Physician: [facility] Consultations 06/15/23 15:32 Consult: Podiatry Routine Consulting [...] 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 Lantus insulin dose decreased From 25 to [...] Normal S2, no murmur. Decreased pulsation of JAVA J2EE APPLICATION DEVELOPER and dorsalis artery left more than [...] Attending Provider: Jeremy Alexander [facility] Providers: Talisha Boykin; Moody Gallagher [...] Adv Practice Prof] - Within 2 Weeks [facility],Nathaly Lainez [Primary Care Provider] - Moody Gallagher DPM [Med Staff - Active Staff] - Within 2 Weeks (For left ankle fracture. Status post TMA.) Disposition Disposition (needs filled in before D/C Order can be placed): Home, Self Care Charges/Coding Visit Charges Inpatient E&M: 93628 Disch Hosp >30min 06/16/23 0945 <Electronically signed by Jeremy Alexander MD> Cosigner Signature (if applicable): CC: Dr. Jeremy Alexander MD; [facility]~ Signed [facility] Work Phone: 1(598) 889-909301-13-2024 Discharge summary Author Jeremy Alexander [facility] June 16, 2023 9:20am Note Date/Time June 16, 2023 8 :42am [facility] Medical Records Department [address] [place] [address] [place] [address] Discharge Summary 06/16/23 0842 MR#: [id number] Acct: [id number] Name: TRENTON JACKSON Rep #:[id number] : 1970 52 From: Jeremy Ahuja PCP: [facility] atus:ADM IN Location: [place] [id number]- 1 Providers Date of Admission: 06/13/23 Primary Care Physician: [facility] Consultations 06/15/23 15:32 Consult: Podiatry Routine Consulting [...] % (Auto) 61.2, Lymph % (Auto) 22.9, Amador % (Auto) 8.9, Eos % (Auto) 5.7 [...] % (Auto) 68.5, Lymph % (Auto) 20.3, Amador % (Auto) 6.0, Eos % (Auto) 3.9, [...] 79.1 H, Lymph % (Auto) 11.4 L, Amador % (Auto) 4.9, Eos % (Auto) 3.2, [...] Attending Provider: Jeremy Alexander [facility] Providers: Talisha Boykin; Moody Gallagher [...] Adv Practice Prof] - Within 2 Weeks [facility] [Primary Care Provider] - Disposition Disposition (needs filled in before D/C Order can be placed): Home, Self Care Charges/Coding Visit Charges Inpatient E&M: 53567 Disch Hosp >30min 06/16/23 0920 <Electronically signed by Jeremy Alexander MD> Cosigner Signature (if applicable): CC: Dr. Jeremy Alexander MD; [facility]~ Signed [facility] Work Phone: 1(392) 416-347401-13-2024 Discharge summary Author Jeremy Alexander [facility] June 16, 2023 9:19am Note Date/Time June 16, 2023 8 :42am [facility] Medical Records Department [address] [place] [address] Instructions for Home/Discharge Instructions 06/16/23 0841 MR#: [id number] Acct: [id number] Name: TRENTON JACKSON Rep #:[id number] : 1970 52 From: Jeremy Ahuja PCP: [facility] atus:ADM IN Discharge Instructions Diet Discharge Diet: [...] Attending Provider: Jeremy Alexander Primary Care Provider: [facility] Consulting Providers: Talisha Boykin; Moody Gallagher [...] Qty: 30 0RF Referrals / Follow Up: [facility] [Primary Care Provider] - Yesenia Zambrano PA [Med Staff - Adv Practice Prof] - Within 2 Weeks Disposition Disposition (needs filled in before D/C Order can be placed): Home, Self Care 06/16/23 09<Electronically signed by Jeremy Alexander MD>Jeremy Alexander MD CC: ALEK Gallagher; Dr. Talisha Boykin MD; [facility] ~ Signed [facility] Work Phone: 1(524) 821-150901-12-2024 Progress note Author Jeremy Alexander [facility] June 15, 2023 5:50pm Note Date/Time June 15, 2023 5 :50pm [facility] Medical Records Department [address] [place] [address] Progress Note - Hospitalist 06/15/23 1532 MR#: [id number] Acct: [id number] Name: TRENTON JACKSON Rep #:[id number] : 1970 52 From: Jeremy Ahuja PCP: [facility] St atus:ADM IN Location: [place] [address] Reason for Visit Reason for Visit: Diagnoses [...] % (Auto) 61.2, Lymph % (Auto) 22.9, Amador % (Auto) 8.9, Eos % (Auto) 5.7 [...] Normal S2, no murmur. Decreased pulsation of JAVA J2EE APPLICATION DEVELOPER and dorsalis artery left more than [...] % (Auto) 61.2, Lymph % (Auto) 22.9, Amador % (Auto) 8.9, Eos % (Auto) 5.7 [...] % (Auto) 68.5, Lymph % (Auto) 20.3, Amador % (Auto) 6.0, Eos % (Auto) 3.9, [...] 79.1 H, Lymph % (Auto) 11.4 L, Amador % (Auto) 4.9, Eos % (Auto) 3.2, [...] Sens 17 Charges/Coding Visit Charges Inpatient E&M: 22616 Subs Hosp L2 06/15/23 9032 <Electronically signed by Jeremy Alexander MD> Cosigner Signature (if applicable): CC: ~ Signed [facility] Work Phone: 1(240) 908-845101-11-2024 Progress note Author Jeremy Alexander [facility] June 14, 2023 3:46pm Note Date/Time June 14, 2023 3 :46pm [facility] Medical Records Department [address] [place] [address] Progress Note - Hospitalist 06/14/23 1538 MR#: [id number] Acct: [id number] Name: TRENTON JACKSON Rep #:[id number] : 1970 52 From: Jeremy Ahuja [facility] atus:ADM IN Location: [place] [address] Reason for Visit Reason for Visit: Diagnoses [...] (Auto) 76.1 H, Lymph % (Auto) 14.9 L,Amador % (Auto) 5.5, Eos % (Auto) 2.3, [...] Normal S2, no murmur. Decreased pulsation of JAVA J2EE APPLICATION DEVELOPER and dorsalis artery left more than [...] % (Auto) 68.5, Lymph % (Auto) 20.3, Amador % (Auto) 6.0, Eos % (Auto) 3.9, [...] 79.1 H, Lymph % (Auto) 11.4 L, Amador % (Auto) 4.9, Eos % (Auto) 3.2, [...] Sens 17 Charges/Coding Visit Charges Inpatient E&M: 85335 Subs Hosp L2 06/14/23 1546 <Electronically signed by Jeremy Alexander MD> Cosigner Signature (if applicable): CC: ~ Signed [facility] Work Phone: 1(868) 612-900201-10-2024 History and physical note Author Talisha Gomezjaycee [facility] June 13, 2023 7:02pm Note Date/Time June 13, 2023 1 2:[address] [place] [address] Health System Medical Records Department [address] [place] [address] History & Physical Exam 06/13/23 0012 MR#: [id number] Acct: [id number] Name: TRENTON JACKSON Rep #:[id number] : 1970 52 From: Talisha Boykin MD PCP: [facility] atus:ADM IN Location: [place] [id number] 1 HPI - General General Date of [...] managed for acute exacerbation of heart failure. [facility] Medical History Acute dyspnea Aftercare following surgery of the circulatory system Alcohol abuse Amputation toe CAD (coronary artery disease), big sandy coronary artery CHF (congestive heart failure) Depression [...] % (Auto) 68.5, Lymph % (Auto) 20.3, Amador % (Auto) 6.0, Eos % (Auto) 3.9, [...] elects to be full code. * Total ipsk-ln-dgko time 16 minutes. Total time spent on evaluation and management of patient, reviewing chart and specialist notes, discussing plan with patient, discussion with nursing and ancillary staff as well as documentation: 76 mins Charges/Coding Visit Charges Inpatient E&M: 68684 Init Hosp L3 Procedures Hospitalists Procedures: 90037 Advncd Care Plan 30 Min 06/13/23 190 <Electronically signed by Talisha Boykin MD> Cosigner Signature (if applicable): CC: Dr. Talisha Boykin MD; [facility]~ Signed [facility] Work Phone: 1(690) 851-593001-10-2024 Progress note Author Jeremyemiliano Alexander [facility] June 13, 2023 2:49pm Note Date/Time June 13, 2023 2 :26pm [facility] Medical Records Department [address] [place] [address] Progress Note - Hospitalist 06/13/23 1312 MR#: [id number] Acct: [id number] Name: TRENTON JACKSON Rep #:[id number] : 1970 52 From: Jeremy Ahuja PCP: [facility] St atus:ADM IN Location: U UED-2 Objective [...] % (Auto) 68.5, Lymph % (Auto) 20.3, Amador % (Auto) 6.0, Eos % (Auto) 3.9, [...] 79.1 H, Lymph % (Auto) 11.4 L, Amador % (Auto) 4.9, Eos % (Auto) 3.2, [...] 23:00 EST Reading Location ID and State: [address] [place] [address] , Service support , Physical Exam Narrative [...] Normal S2, no murmur. Decreased pulsation of JAVA J2EE APPLICATION DEVELOPER and dorsalis artery left more than [...] % (Auto) 68.5, Lymph % (Auto) 20.3, Amador % (Auto) 6.0, Eos % (Auto) 3.9, [...] 79.1 H, Lymph % (Auto) 11.4 L, Amador % (Auto) 4.9, Eos % (Auto) 3.2, [...] Sens 17 Charges/Coding Visit Charges Inpatient E&M: 52809 Subs Hosp L2 06/13/23 5598 <Electronically signed by Jeremy Alexander MD> Cosigner Signature (if applicable): CC: ~ Signed [facility] Work Phone: 1(519) 499-912901-10-2024 Discharge summary Author Riccardo Hillman [facility] June 13, 2023 12:46am Note Date/Time June 12, 2023 8: 15pm [facility] Medical Records Department [address] [place] [address] Emergency Department Summary 06/12/23 MR#: [id number] Acct: [id number] Name: TRENTON JACKSON Rep #:[id number] : 1970 52 From: Riccardo Gibson PCP: [facility] atus:REG ER Location: ED HPI [...] a cough but denies any sputum production. [facility] Medical History Acute dyspnea Aftercare following surgery of the circulatory system Alcohol abuse Amputation toe CAD (coronary artery disease), big sandy coronary artery CHF (congestive heart failure) Depression [...] % (Auto) 68.5 Lymph % (Auto) 20.3 Amador % (Auto) 6.0 Eos % (Auto) 3.9 [...] sinus rhythm with a rate of 97. NM interval was normal at 178 ms. QRS [...] effusion, Hypoxia Disposition Disposition: Acute Care Hospital [facility] What to do if you have Problems For any increased pain, shortness of breath, bleeding, nausea or vomiting, chestpain, or any unexpected problems, contact your Primary Care Provider. Call [facility] ([phone]) or report to the closest Emergency Room. Call 911 if necessary. 06/13/23 0046 <Electronically signed by Riccardo Hillman DO> Cosigner Signature (if applicable): CC: [facility] ~ Signed [facility] Work Phone: 1(247) 877-313112-04-2023 Discharge summary Author Latricia Aaron [facility] May 07, 2023 12:08pm Note Date/Time May 07, 2023 1 2:02pm [facility] Medical Records Department [address] [place] [address] Discharge Summary 05/07/23 1121 MR#: [id number] Acct: [id number] Name: TRENTON JACKSON Rep #:[id number] : 1970 52 From: Latricia Aaron MD PCP: [facility] St atus:ADM IN Location: [facility] [id number]- 1 Providers Date of Admission: 05/03/23 Date of Discharge: 05/07/23 Primary Care Physician: [facility] Consultations 05/03/23 21:00 Consult: Cardiology Routine Consulting [...] is a 52-year-old female who presented to [facility] ED on 05/03/2023 with worsening shortness [...] for PT OT eval and social services coordinator to assist with discharge planning 4. Constipation [...] % (Auto) 66.3, Lymph % (Auto) 22.0, Amador % (Auto) 7.3, Eos % (Auto) 3.0, [...] Attending Provider: Latricia Aaron [facility] Providers: Alli Brito; Lei Justin; [...] Qty: 30 0RF Referrals / Follow Up: [facility] [Primary Care Provider] - 05/07/23 3:30 pm Disposition Disposition (needs filled in before D/C Order can be placed): Home, Self Care Charges/Coding Visit Charges Inpatient E&M: 01307 Disch Hosp >30min 05/07/23 1208 <Electronically signed by Latricia Aaron MD> Cosigner Signature (if applicable): CC: Dr. Latricia Aaron MD; [facility]~ Signed [facility] Work Phone: 1(917) 442-722712-04-2023 Consult note Author Josse Garcia [facility] May 07, 2023 11:50am Note Date/Time May 07, 2023 1 1:50am [facility] Medical Records Department [address] [place] [address] Counseling Note - Pharmacy 05/07/23 1149 MR#: [id number] Acct: [id number] Name: TRENTON JACKSON Rep #:[id number] : 1970 52 From: Josse Garcia [facility] atus:ADM IN Y [facility] Service has performed discharge [...] Signature (if applicable): Date CC: ~ Signed [facility] Work Phone: 1(533) 420-147912-03-2023 Progress note Author Brenda Posadas [facility] May 06, 2023 4:01pm Note Date/Time May 06, 2023 8 :07am [facility] Medical Records Department [address] [place] [address] Progress Note - Hospitalist 05/06/23802 MR#: [id number] Acct: [id number] Name: TRENTON JACKSON Rep #:[id number] : 1970 52 From: Brenda Posadas MD PCP: [facility] atus:ADM IN Location: [place] [address] Reason for Visit Reason for Visit: Diagnoses [...] % (Auto) 62.7, Lymph % (Auto) 24.3, Amador % (Auto) 7.5, Eos % (Auto) 4.1, [...] is a 52-year-old female who presented to [facility] ED on 05/03/2023 with worsening shortness [...] 35 minutes. Charges/Coding Visit Charges Inpatient E&M: 07433 Subs Hosp L2 05/06/23 1601 <Electronically signed by Brenda Posadas MD> Cosigner Signature (if applicable): CC: ~ Signed [facility] Work Phone: [phone]) 792-233512-03-2023 Progress note Author Alli Brito [facility] May 06, 2023 10:31am Note Date/Time May 06, 2023 1 0:31am [facility] Medical Records Department [address] [place] [address] Progress Note - Cardiology 05/06/23 1030 MR#: [id number] Acct: [id number] Name: TRENTON JACKSON Rep #:[id number] : 1970 52 From: Alli Brito MD PCP: [facility] atus:ADM IN Location: [place] [address] Subjective Subjective Patient seen and evaluated. Appears [...] % (Auto) 62.7, Lymph % (Auto) 24.3, Amador % (Auto) 7.5, Eos % (Auto) 4.1, [...] % (Auto) 62.7, Lymph % (Auto) 24.3, Amador % (Auto) 7.5, Eos % (Auto) 4.1, [...] of congestive heart failure which is systolic [place] Heart Association class III. It appears that [...] she would be a candidate for a OFFICE SERVICES ASSISTANT-D. (2) History of coronary artery disease: PLAN: [...] Cosigner Signature (if applicable): CC: ~ Signed [facility] Work Phone: 1(561) 646-387212-02-2023 Progress note Author Brenda Posadas [facility] May 05, 2023 3:29pm Note Date/Time May 05, 2023 9 :59am [facility] Medical Records Department [address] [place] [address] Progress Note - Hospitalist 05/05/2358 MR#: [id number] Acct: [id number] Name: TRENTON JACKSON Rep #:[id number] : 1970 52 From: Brenda Posadas MD PCP: [facility] atus:ADM IN Location: [place] [address] Reason for Visit Reason for Visit: Diagnoses [...] % (Auto) 61.2, Lymph % (Auto) 23.6, Amador % (Auto) 7.4, Eos % (Auto) 6.5 [...] insufficiency. Ordering Physician: Lei Justin Referring Physician: [facility] Performed By: Jyoti Pandey, EDMOND, RVT Rhythm [...] is a 52-year-old female who presented to [facility] ED on 05/03/2023 with worsening shortness [...] 35 minutes. Charges/Coding Visit Charges Inpatient E&M: 32138 Subs Hosp L2 05/05/23 1529 <Electronically signed by Brenda Posadas MD> Cosigner Signature (if applicable): CC: ~ Signed [facility] Work Phone: 1([phone]) 798-828012-02-2023 Progress note Author Alli Brito [facility] May 05, 2023 11:03am Note Date/Time May 05, 2023 1 1:03am [facility] Medical Records Department [address] [place] [address] Progress Note - Cardiology 05/05/23 1102 MR#: [id number] Acct: [id number] Name: TRENTON JACKSON Rep #:[id number] : 1970 52 From: Alli Brito MD PCP: [facility] atus:ADM IN [facility] Subjective Subjective Patient seen and evaluated. [...] % (Auto) 61.2, Lymph % (Auto) 23.6, Amador % (Auto) 7.4, Eos % (Auto) 6.5 [...] % (Auto) 61.2, Lymph % (Auto) 23.6, Amador % (Auto) 7.4, Eos % (Auto) 6.5 [...] insufficiency. Ordering Physician: Lei Justin Referring Physician: [facility] Performed By: Jyoti Pandey, EDMOND, RVT Physical [...] of congestive heart failure which is systolic [place] Heart Association class III. It appears that [...] she would be a candidate for a OFFICE SERVICES ASSISTANT-D. (2) History of coronary artery disease: PLAN: [...] Cosigner Signature (if applicable): CC: ~ Signed [facility] Work Phone: 1(331) 700-772212-01-2023 Progress note Author Brenda Posadas [facility] May 04, 2023 5:51pm Note Date/Time May 04, 2023 8 :34am [facility] Medical Records Department [address] [place] [address] Progress Note - Hospitalist 05/04/23 0826 MR#: [id number] Acct: [id number] Name: TRENTON JACKSON Rep #:[id number] : 1970 52 From: Brenda Posadas MD PCP: [facility] atus:ADM IN Location: [place] [address] Reason for Visit Reason for Visit: Diagnoses [...] 77.6 H, Lymph % (Auto) 13.6 L, Amador % (Auto) 3.9, Eos % (Auto) 3.4, [...] is a 52-year-old female who presented to [facility] ED on 05/03/2023 with worsening shortness [...] 35 minutes. Charges/Coding Visit Charges Inpatient E&M: 88603 Subs Hosp L2 05/04/23 1751 <Electronically signed by Brenda Posadas MD> Cosigner Signature (if applicable): CC: ~ Signed [facility] Work Phone: 1(760) 244-570212-01-2023 Consult [facility] 04, [facility]23 7:21am Note Date/Time May 04, 2023 6 :53am [facility] Medical Records Department [address] [place] [address] Consultation - Cardiology 05/04/23 0651 MR#: [id number] Acct: [id number] Name: TRENTON JACKSON Rep #:[id number] : 1970 52 From: Alli Brito MD [facility] atus:ADM IN Location: [place] [address] Assessment & Plan Assessment/Plan (1) CHF (congestive heart failure): PLAN: She does have evidence of congestive heart failure which is systolic [place] Heart Association class III. It appears that [...] she would be a candidate for a OFFICE SERVICES ASSISTANT-D. (2) History of coronary artery disease: PLAN: [...] demonstrated this and had been evaluated in [place] and had a stress test which demonstrated [...] [facility] of [facility] discomfort coughing as [...] shewas admitted for further evaluation and management. [facility] Medical History (Updated 05/03/23 @ 17:53 by Paula Clayton) Acute dyspnea Aftercare following surgery of the circulatory system Alcohol abuse Amputation toe CAD (coronary artery disease), big sandy coronary artery CHF (congestive heart failure) Depression [...] 77.6 H, Lymph % (Auto) 13.6 L, Amador % (Auto) 3.9, Eos % (Auto) 3.4, [...] (Auto)77.6 H, Lymph % (Auto) 13.6 L, Amador % (Auto) 3.9, Eos % (Auto) 3.4, [...] Lei Justin DO; Dr. Alli Brito MD; [facility]~ Signed [facility] Work Phone: 1(175) 109-937811-30-2023 History and physical note Author Lei Justin [facility] May 03, 2023 9:30pm Note Date/Time May 03, 2023 4:26pm [facility] Medical Records Department [address] [place], [place] [address] [address] H&P Exam - Hospitalist 05/03/23 1624 MR#: [id number] Acct: [id number] Name: TRENTON JACKSON Rep #:[id number] : 1970 52 From: Lei swanson DO PCP: [facility] atus:ADM IN Location: [facility] WMO067- 1 HPI - General General Date of Admission: 05/03/23 Date of Service: 05/03/23 Chief Complaint: Worsening shortness of breath HPI Narrative TRENTON JACSKON, is a 52 F who presented to [facility] ED on 05/03/2023 with 3 to [...] discomfort. No other acute concerns this time. [facility] Medical History (Updated 05/03/23 @ 17:53 by Paula Clayton) Acute dyspnea Aftercare following surgery of the circulatory system Alcohol abuse Amputation toe CAD (coronary artery disease), big sandy coronary artery CHF (congestive heart failure) Depression [...] 77.6 H, Lymph % (Auto) 13.6 L, Amador % (Auto) 3.9, Eos % (Auto) 3.4, [...] is a 52-year-old female who presented to [facility] ED on 05/03/2023 with worsening shortness [...] 55 minutes. Charges/Coding Visit Charges Inpatient E&M: 72638 Init Hosp L2 05/03/230 <Electronically signed by Lei Justin DO> Cosigner Signature (if applicable): CC: Dr. Lei Justin DO; [facility]~ Signed [facility] Work Phone: 1([phone]) 350-475911-30-2023 Discharge summary Author Ananda Coyle [facility] May 03, 2023 3:42pm Note Date/Time May 03, 2023 2:03pm [facility] Medical Records Department [address] [place] [address] Emergency Department Summary 05/03/23 MR#: [id number] Acct: [id number] Name: TRENTON JACKSON Rep #:[id number] : 1970 52 From: Ananda Coyle MD [facility] atus:REG ER Location: ED HPI [...] abuse Amputation toe CAD (coronary artery disease), big sandy coronary artery CHF (congestive heart failure) Depression [...] CHF or pleural effusions. Differential would alsoinclude DE, anemia etc. Cardiac workup is underway. Repeat [...] 77.6 H Lymph % (Auto) 13.6 L Amador % (Auto) 3.9 Eos % (Auto) 3.4 [...] rate of 97. No acute signs of DE or ischemia. Interventricular conduction delay. Discharge Plan [...] DAILY Qty: 90 3RF [facility] - Disposition Disposition: Acute Care Hospital [facility] What to do if you have Problems For any increased pain, shortness of breath, bleeding, nausea or vomiting, chestpain, or any unexpected problems, contact your Primary Care Provider. Call [facility] ([phone]) or report to the closest Emergency Room. Call 911 if necessary. 05/03/231541 <Electronically signed by Ananda Coyle MD> Cosigner Signature (if applicable): CC: [facility] ~ Signed [facility] Work Phone: [phone]) 100-463511-30-2023 Discharge summary Author Ananda Coyle [facility] May 03, 2023 3:42pm Note Date/Time May 03, 2023 2:03pm [facility] Medical Records Department [address] [place] [address] Emergency Department Summary 05/03/23 MR#: [id number] Acct: [id number] Name: TRENTON JACKSON Rep #:[id number] : 1970 52 From: Ananda Coyle MD PCP: [facility] atus:REG ER Location: ED HPI [...] abuse Amputation toe CAD (coronary artery disease), big sandy coronary artery CHF (congestive heart failure) Depression [...] CHF or pleural effusions. Differential would alsoinclude DE, anemia etc. Cardiac workup is underway. Repeat [...] 77.6 H Lymph % (Auto) 13.6 L Amador % (Auto) 3.9 Eos % (Auto) 3.4 [...] rate of 97. No acute signs of DE or ischemia. Interventricular conduction delay. Discharge Plan [...] 3RF Primary Care Provider: Nathaly Dickey Referrals: [facility] Nathaly Finney [Primary Care Provider] - Disposition Disposition: Acute Care Hospital [facility] What to do if you have Problems For any increased pain, shortness of breath, bleeding, nausea or vomiting, chestpain, or any unexpected problems, contact your Primary Care Provider. Call [facility] ([phone]) or report to the closest Emergency Room. Call 911 if necessary. 05/03/23 1542 <Electronically signed by Ananda Coyle MD> Nicoletteigner Signature (if applicable): CC: [facility] ~ Signed [facility] Work Phone: 1([phone]) 412-492909-02-2023 Discharge summary Author Sabina Rosenberg [facility] February 03, 2023 4:02pm Note Date/Time February 03, 2023 3:30pm [facility] Medical Records Department [address] [place] [address] Instructions for Home/Discharge Instructions 02/03/23 1530 MR#: [id number] Acct: [id number] Name: TRENTON JACKSON Rep #:[id number] : 1970 52 From: Sabina Rosenberg DO PCP: [facility] St atus:ADM REHAN Discharge Instructions Diet Discharge Diet: 1800 Calorie Control Diet Activity Weight Bearing Status: Full weight bearing Follow Up Care Test Results: Test results from this visit will be discussed in further detail at your follow- up appointment, if applicable. Discharge Plan Admission Admit Date/Time: 02/02/23 16:24 Primary Reason for Your Visit: CHF Attending Provider: Sabina Rosenberg [facility] Consulting Providers: Brandon Adames Discharge Orders/Prescriptions Prescriptions: [...] Qty: 30 0RF [facility] Care [facility] - Within 2 Weeks Disposition Disposition (needs filled in before D/C Order can be placed): Home, Self Care 02/03/23 1602<Electronically signed by Sabina Rosenberg DO>Sabina Rosenberg DO CC: Dr. Brandon Adames MD; [facility] ~ Signed [facility] Work Phone: 1(862) 598-552009-01-2023 History and physical note Author Brandon Adames [facility] February 02, 2023 5:56pm Note Date/Time February 02, 2023 5:08pm [facility] Medical Records Department [address] [place] [address] H&P Exam - Hospitalist 02/02/23 1627 MR#: [id number] Acct: [id number] Name: TRENTON JACKSON Rep #:[id number] : 1970 52 From: Brandon talavera MD PCP: [facility] atus:ADM REHAN Location: [place] [address] HPI - General General Date of Admission: [...] has been unable to follow-up with a fuel cell builder since that time but states that she has been taking her medications appropriately and watching her diet. She comes in today because she is also been having some shortness of breath, she did drop heroxygen down to 88% and is managing on 2 L nasal cannula. She did receive a doseof Lasix in the ER. [facility] Medical History Acute dyspnea Aftercare following surgery of the circulatory system Alcohol abuse CAD (coronary artery disease), big sandy coronary artery CHF (congestive heart failure) Depression [...] 70.1 H, Lymph % (Auto) 18.4 L, Amador % (Auto) 6.1, Eos % (Auto) 3.9, [...] with colleagues Charges/Coding Visit Charges Inpatient E&M: 08591 Init Hosp L3 02/02/23 1906 <Electronically signed by Brandon Adames MD> Cosigner Signature (if applicable): CC: Dr. Brandon Adames MD; [facility]~ Signed [facility] Work Phone: 1([phone]) [phone] History and physical note Author Brandon Adames [facility] February 02, 2023 5:56pm Note Date/Time February 02, 2023 5:08pm [facility] Medical Records Department [address] [place] [address] H&P Exam - Hospitalist 02/02/23 1627 MR#: [id number] Acct: [id number] Name: TRETNON JACKSON Rep #:[id number] : 1970 52 From: Brandon talavera MD PCP: [facility] St atus:ADM REHAN Location: [address] 1 HPI - General General Date [...] has been unable to follow-up with a fuel cell builder since that time but states that she has been taking her medications appropriately and watching her diet. She comes in today because she is also been having some shortness of breath, she did drop heroxygen down to 88% and is managing on 2 L nasal cannula. She did receive a doseof Lasix in the ER. [facility] Medical History Acute dyspnea Aftercare following surgery of the circulatory system Alcohol abuse CAD (coronary artery disease), big sandy coronary artery CHF (congestive heart failure) Depression [...] 70.1 H, Lymph % (Auto) 18.4 L, Amador % (Auto) 6.1, Eos % (Auto) 3.9, [...] with colleagues Charges/Coding Visit Charges Inpatient E&M: 07608 Init Hosp L3 02/02/23 1756 <Electronically signed by Brandon Adames MD> Cosigner Signature (if applicable): CC: Dr. Brandon Adames MD; [facility]~ Signed [facility] Work Phone: 1([phone]) 305-281009-01-2023 Discharge summary Author Zack Card [facility] February 02, 2023 3:56pm Note Date/Time February 02, 2023 12:13pm [facility] Medical Records Department [address] [place] [address] Emergency Department Summary 02/02/23 MR#: [id number] Acct: [id number] Name: TRENTON JACKSON Rep #:[id number] : 1970 52 From: Zack Han PCP: [facility] St atus:REG ER Location: ED [...] Factors: Positive for Prior DVT or PE [facility] Medical History Acute dyspnea Aftercare following surgery of the circulatory system Alcohol abuse CAD (coronary artery disease), big sandy coronary artery CHF (congestive heart failure) Depression [...] clinician: Hospitalist This note was generated with Clickst dictation software. It may contain incorrectwords, spelling, [...] 70.1 H Lymph % (Auto) 18.4 L Amador % (Auto) 6.1 Eos % (Auto) 3.9 [...] pleural effusion Disposition Disposition: Acute Care Hospital [facility] What to do if you have Problems For any increased pain, shortness of breath, bleeding, nausea or vomiting, chestpain, or any unexpected problems, contact your Primary Care Provider. Call [facility] ([phone]) or report to the closest Emergency Room. Call 911 if necessary. 02/02/23 7025 <Electronically signed by Zack Han> Cosigner Signature (if applicable): CC: [facility] ~ Signed [facility] Work Phone: 1(161) 383-847608-02-2023 Consult note Author Josse Garcia [facility] January 03, 2023 11:29am Note Date/Time January 03, 2023 11: 09am [facility] Medical Records Department [address] [address] Counseling Note - Pharmacy 01/03/23 1106 MR#: [id number] Acct: [id number] Name: TRENTON JACKSON Rep #:[id number] : 1970 52 From: Josse Garcia PCP: [facility] St atus:ADM IN Y [facility] Service has performed discharge [...] Josse Garcia on 01/03/23 at 1129 The manager of case Paula is discussing with patient if they have adequate pen needles at home for their long-acting insulin, and will discuss with MD if more are needed. 01/03/23 1129 <Electronically signed by Josse osborne> Date _ Josse Garcia Signature (if applicable): Date cc: ~* Signed [facility] Work Phone: 1(118) 109-148808-02-2023 Discharge summary Author Sabina Rosenberg [facility] January 03, 2023 10:26am Note Date/Time January 03, 2023 10: 18am [facility] Medical Records Department [address] [place] [address] Instructions for Home/Discharge Instructions 01/03/23 1018 MR#: [id number] Acct: [id number] Name: TRENTON JACKSON Rep #:[id number] : 1970 52 From: Sabina Rosenberg DO PCP: [facility] atus:ADM IN Discharge Instructions Diet Discharge Diet: [...] Attending Provider: Sabina Rosenberg Primary Care Provider: [facility] Discharge Orders/Prescriptions Prescriptions: New lisinopril 20 [...] by Sabina Rosenberg DO>Sabina Rosenberg DO CC: [facility] ~ Signed [facility] Work Phone: 1([phone]) 886-264008-01-2023 Progress note Author Sabina Rosenberg [facility] January 02, 2023 5:29pm Note Date/Time January 02, 2023 5:3 0pm [facility] Medical Records Department [address] [place] [address] Progress Note - Hospitalist 01/02/23 1726 MR#: [id number] Acct: [id number] Name: TRENTON JACKSON Rep #:[id number] : 1970 52 From: Sabina Rosenberg DO PCP: [facility] atus:ADM IN Location: [place] [id number]- 1 Reason for Visit Reason for Visit: [...] that I would get an appointment at [facility] for the patient to follow-up with [...] with her physicians as directed, I contacted [facility] and they will make an appointment for the patient to follow-up for ongoing care. #3 cardiomyopathy, probably ischemic in nature-patient will need close follow- upwith a fuel cell builder after her discharge from the hospital, I [...] 50 minutes Charges/Coding Visit Charges Inpatient E&M: 31589 Subs Hosp L3 01/02/231728 <Electronically signed by Sabina Rosenberg DO> Cosigner Signature (if applicable): CC: ~ Signed [facility] Work Phone: 1([phone]) 719-903107-31-2023 History and physical note Author Sabina Rosenberg [facility] January 01, 2023 9:28pm Note Date/Time January 01, 2023 9:28 pm [facility] Medical Records Department [address] [place] [address] [place] [address] H&P Exam - Hospitalist 01/01/232112 MR#: [id number] Acct: [id number] Name: TRENTON JACKSON Rep #:[id number] : 1970 52 From: Sabina Rosenberg DO [facility] atus:ADM IN Location: [facility] IKL375- 1 HPI - General General Date of Admission: 01/01/23 Date of Service: 01/01/23 Chief Complaint: Shortness of breath, cough, chest pain on coughing and deep breathing HPI Narrative TRENTON JACKSON, is a 52 F who presents to the emergency room at [facility] with complaints of cough productive of [...] [facility] [...] she feels causes her to be unwell. [facility] Medical History (Updated 01/01/23 @ 17:18 by Elisabeth Elizalde) Alcohol abuse CAD (coronary artery disease), big sandy coronary artery CHF (congestive heart failure) Congestive [...] 75.1 H, Lymph % (Auto) 16.1 L, Amador % (Auto) 5.0, Eos % (Auto) 2.7, [...] nature-patient will need close follow- upwith a fuel cell builder after her discharge from the hospital, I [...] 75 minutes Charges/Coding Visit Charges Inpatient E&M: 65439 Init Hosp L3 01/01/232127 <Electronically signed by Sabina Rosenberg DO> Cosigner Signature (if applicable): CC: Dr. Sabina Rosenberg, ; [facility]~ Signed [facility] Work Phone: 1(378) 663-369907-31-2023 Discharge summary Author Yvette Hanley [facility] January 01, 2023 4:35pm Note Date/Time January 01, 2023 1:15 pm [facility] Medical Records Department [address] [place] [address] Emergency Department Summary 01/01/23 MR#: [id number] Acct: [id number] Name: TRENTON JACKSON Rep #:[id number] : 1970 52 From: Yvette Hanley DO PCP: [facility] St atus:REG ER Location: ED [...] to 3 days and has been taking Renetta-Rosebud cold relief. Patient denies nausea or vomiting. [...] from the knee down to the foot. [facility] Medical History CAD (coronary artery disease), big sandy coronary artery CHF (congestive heart failure) GERD (gastroesophageal reflux disease) HTN (hypertension) Hx of fracture of humerus Hyperlipidemia Toe amputee Home Medications alendronate 70 mg tablet 70 mg PO BONE iOpener 07/25/22 [History Last Taken Unknown] cholecalciferol (vitamin [...] established on arrival. Patient placed on a manager english. EKG obtained on arrival showed sinus rhythm [...] 75.1 H Lymph % (Auto) 16.1 L Amador % (Auto) 5.0 Eos % (Auto) 2.7 [...] Nausea) Qty: 10 0RF Primary Care Provider: [facility]aly Finney [facility]: [facility] - Disposition Disposition: Acute Care Hospital [facility] What to do if you have Problems For any increased pain, shortness of breath, bleeding, nausea or vomiting, chestpain, or any unexpected problems, contact your Primary Care Provider. Call [facility] ([phone]) or report to the closest Emergency Room. Call 911 if necessary. 01/01/23 1635 <Electronically signed by Yvette Hanley DO> Cosigner Signature (if applicable): CC: [facility] ~ Signed [facility] Work Phone: [phone]) 979-883607-31-2023 Discharge summary Author Yvette [facility] January 01, 2023 4:35pm Note Date/Time January 01, 2023 1:15 pm [facility] Medical Records Department [address] [place] [address] Emergency Department Summary 01/01/23 MR#: [id number] Acct: [id number] Name: TRENTON JACKSON Rep #:[id number] : 1970 52 From: Yvette Hanley DO PCP: [facility] St atus:REG ER Location: ED [...] to 3 days and has been taking Renetta-Rosebud cold relief. Patient denies nausea or vomiting. [...] from the knee down to the foot. [facility] Medical History CAD (coronary artery disease), big sandy coronary artery CHF (congestive heart failure) GERD [...] established on arrival. Patient placed on a manager english. EKG obtained on arrival showed sinus rhythm [...] 75.1 H Lymph % (Auto) 16.1 L Amador % (Auto) 5.0 Eos % (Auto) 2.7 [...] Nausea) Qty: 10 0RF [facility]: [facility] - Disposition Disposition: Acute Care Hospital [facility] What to do if you have Problems For any increased pain, shortness of breath, bleeding, nausea or vomiting, chestpain, or any unexpected problems, contact your Primary Care Provider. Call [facility] ([phone]) or report to the closest Emergency Room. Call 911 if necessary. 01/01/23 1635 <Electronically signed by Yvette Hanley DO> Cosigner Signature (if applicable): CC: [facility] ~ Signed [facility] Work Phone: [phone]) 110-774906-26-2023 Hospital Discharge instructions Additional Instructions Plenty of fluids such as water, prune juice and fruits, vegetables and fiber to help with constipation. GoLytely: Drink 6 to 8 ounce is every hour as needed and to have a bowel movement.[facility] Work Phone: [phone]) 970-491604-30-2023 Hospital Discharge instructions Additional Instructions Plenty of fluids such as water, prune juice and fruits, vegetables and fiber to help with constipation. GoLytely: Drink 6 to 8 ounce is every hour as needed and to have a bowel movement.[facility] Work Phone: [phone]) 819-996004-17-[address] Card [facility] September 18, 2022 6:48pm Note Date/Time September 18, 2022 2:3 5pm [facility] Medical Records Department [address] [place] [address] Emergency Department Summary 09/18/22 MR#: [id number] Acct: [id number] Name: TRENTON JACKSON Rep #:[id number] : 1970 52 From: Zack Han PCP: [facility] St atus:[facility] ER Location: ED HPI History of Present [...] PFSH Medical History CAD (coronary artery disease), big sandy coronary artery CHF (congestive heart failure) GERD (gastroesophageal reflux disease) HTN (hypertension) Hx of fracture of humerus Hyperlipidemia Toe amputee Home Medications alendronate 70 mg tablet 70 mg PO [facility] 07/25/22 [History Last Taken Unknown] cholecalciferol [...] 74.8 H Lymph % (Auto) 18.4 L Amador % (Auto) 5.3 Eos % (Auto) 0.7 [...] (Auto) Neut % (Auto) Lymph % (Auto) Amador % (Auto) Eos % (Auto) Baso % [...] 18:41 EDT Reading Location ID and State: [facility] / [place] , Service support , Discharge Plan Triage [...] Nausea) Qty: 10 0RF [facility] [Primary Care Provider] - 3-5 Days Activity Restrictions/Additional Instructions: Hip x-ray negative. Labs are stable. Follow-up with your doctor. Disposition Disposition: Home, Self Care What to do if you have Problems For any increased pain, shortness of breath, bleeding, nausea or vomiting, chestpain, or any unexpected problems, contact your Primary Care Provider. Call [facility] ([phone]) or report to the closest Emergency Room. Call 911 if necessary. 09/18/221847 <Electronically signed by Zack Han> Cosigner Signature (if applicable): CC: [facility] ~ Signed [facility] Work Phone: 1(556) 940-695604-01-[address] Forde [facility] September 02, 2022 11:17am Note Date/Time September 02, 2022 11:1 7am [facility] Medical Records Department [facility] [place] [address] Discharge Summary 09/02/22 1115 MR#: [id number] Acct: [id number] Name: TRENTON JACKSON Rep #:[id number] : 1970 52 From: Jeison Forde DPM PCP: [facility] atus:ADM IN Location: [place] [address] Providers Date of Admission: 08/30/22 Primary Care Physician: [facility] Consultations 08/30/22 17:15 Consult: Hospitalist Routine Consulting Provider: Sabina Rosenberg Reason for Consult: medical management/pre operative clearance EMERGENT Consult: No MD Notified: Yes Date Notified: 08/30/22 Time Notified: 17:55 Method of Notification: Verbal Consult: Onc/Wound/storage manager Routine Comment: Reason For Visit: GANGRENE RIGH 2ND TOE Diagnosis Discharge Diagnosis (1) Cellulitis of right foot: Status: Acute Code(s): L03.115 - Cellulitis of right lower limb (2) Diabetes mellitus, type 2: Status: Chronic Code(s): E11.9 - Type 2 diabetes mellitus without complications (3) Atherosclerosis of lower extremity: Status: Acute Code(s): I70.209 - Unspecified atherosclerosis of big sandy arteries of extremities, unspecified extremity (4) Dry [...] alendronate 70 mg tablet 70 mg PO [facility] 07/25/22 cholecalciferol (vitamin D3) 25 mcg (1,000 [...] Attending Provider: Jeison Forde [facility] Consulting Providers: Sabina Rosenberg Instructions Additional [...] Cosigner Signature (if applicable): CC: ALEK Forde; [facility]~ Signed [facility] Work Phone: 1(443) 418-245404-01-[address] Rosenberg [facility] September 02, 2022 10:21am Note Date/Time September 02, 2022 10:2 1am [facility] Medical Records Department [address] [place] [address] Progress Note - Hospitalist 09/02/22 1018 MR#: [id number] Acct: [id number] Name: TRENTON JACKSON Rep #:[id number] : 1970 52 From: Sabina Rosenberg DO PCP: [facility] St atus:ADM IN Location: [address] Reason for Visit Reason for Visit: Diagnoses Type 2 diabetes mellitus without complications (08/30/22) Unspecified atherosclerosis of big sandy arteries of extremities, unspecified extremity (08/30/22) Peripheral [...] 35 minutes Charges/Coding Visit Charges Inpatient E&M: 18100 Subs Hosp L2 09/02/22 1021 <Electronically signed by Sabina Rosenberg DO> Cosigner Signature (if applicable): CC: ~ Signed [facility] Work Phone: 1([phone]) 266-695504-01-[address] Forde [facility] September 02, 2022 10:20am Note Date/Time September 02, 2022 10:2 0am [facility] Medical Records Department [facility] [place] [address] Progress Note 09/02/22 1018 MR#: [id number] Acct: [id number] Name: TRENTON JACKSON Rep #:[id number] : 1970 52 From: Jeison Forde DPM PCP: [facility] atus:ADM IN Location: MS3 CB703-1 Subjective Subjective Patient denies constitutional symptoms. pain [...] Cosigner Signature (if applicable): CC: ~ Signed [facility] Work Phone: 1([phone]) 239-846004-01-[address] Rosenberg [facility] September 02, 2022 10:18am Note Date/Time September 02, 2022 9:45 am [facility] Medical Records Department [address] [place] [address] Instructions for Home/Discharge Instructions 09/02/22 0941 MR#: [id number] Acct: [id number] Name: TRENTON JACKSON Rep #:[id number] : 1970 52 From: Sabina Rosenberg DO PCP: [facility] St atus:ADM IN Discharge Instructions [...] Attending Provider: Jeison Forde [facility] Consulting Providers: Sabina Rosenberg Discharge Orders/Prescriptions [...] Rosenberg DO CC: Dr. Sabina Rosenberg, ; [facility] ~ Signed [facility] Work Phone: [phone]) 706-110103-31-[address] Rosenberg [facility] September 01, 2022 6:58pm Note Date/Time September 01, 2022 3:2 3pm [facility] Medical Records Department [address] [place] [address] Progress Note - Hospitalist 09/01/22 1518 MR#: [id number] Acct: [id number] Name: TRENTON JACKSON Rep #:[id number] : 1970 52 From: Sabina Rosenberg DO PCP: [facility] St atus:ADM IN Location: [place] [address] Reason for Visit Reason for Visit: Diagnoses Type 2 diabetes mellitus without complications (08/30/22) Unspecified atherosclerosis of big sandy arteries of extremities, unspecified extremity (08/30/22) Peripheral [...] 35 minutes Charges/Coding Visit Charges Inpatient E&M: 28798 Subs Hosp L2 09/01/22 9604 <Electronically signed by Sabina Rosebnerg DO> Cosigner Signature (if applicable): CC: ~ Signed [facility] Work Phone: [phone] 933-882903-31-[address] Forde [facility] September 01, 2022 12:02pm Note Date/Time September 01, 2022 12: 02pm [facility] Medical Records Department [address] [place] [address] Progress Note 09/01/22 1200 MR#: [id number] Acct: [id number] Name: TRENTON JACKSON Rep #:[id number] : 1970 52 From: Jeison Forde DPM [facility]CP: [facility] atus[facility]ADM [facility] Subjective Subjective 52-year-old female 1 day postop [...] Cosigner Signature (if applicable): CC: ~ Signed [facility] Work Phone: 1([phone]) 297-561203-30-[address] Rosenberg [facility] August 31, 2022 5:17pm Note Date/Time August 31, 2022 4:5 9pm [facility] Medical Records Department [address] [place] [address] Progress Note - Hospitalist 08/31/22 1658 MR#: [id number] Acct: [id number] Name: TRENTON JACKSON Rep #:[id number] : 1970 52 From: Sabina Rosenberg DO [facility] atus:ADM [place] Location: [place] [address]-1 Reason for Visit Reason for Visit: Diagnoses [...] an outpatient, I called her primarycare office ([facility]) and talk to Lory who is the [...] % (Auto) 64.6, Lymph % (Auto) 26.6, Amador % (Auto) 6.5, Eos % (Auto) 1.3, [...] stated that she was sent to the [facility] for further evaluation and it was determined [...] 35 minutes Charges/Coding Visit Charges Inpatient E&M: 99298 Subs Hosp L2 08/31/22 8607 <Electronically signed by Sabina Rosenberg DO> Cosigner Signature (if applicable): CC: ~ Signed [facility] Work Phone: [phone]) 897-364603-30-2023 Procedure [facility] 08-30-[address] Rosenberg [facility] August 30, 2022 8:00pm Note Date/Time August 30, 2022 7:5 0pm [facility] Medical Records Department [address] [place] [address] Progress Note - Hospitalist 08/30/221943 MR#: [id number] Acct: [id number] Name: TRENTON JACKSON Rep #:[id number] : 1970 52 From: Sabina Rosenberg DO [facility] atus:ADM IN Location: [place]3 HY180-4 Reason for Visit Reason for Visit: Diagnoses Peripheral vascular disease, unspecified (08/30/22) Cellulitis of right lower limb (08/30/22) Pain in right foot (08/30/22) Subjective Subjective Patient was seen and examined today at request of podiatry, she is a 28-rjad[age]demfsaez female came to the ER today with complaints of pain and dry gangrene to the distal area of her right second toe. Patient's chronic medical problems include type 2 diabetes, peripheral vascular disease, essential hypertension, hyperlipidemia, GERD, and a history of congestive heart failure. Patient does not follow with a fuel cell builder, she is being seen by her PCP. [...] 77.4 H, Lymph % (Auto) 15.4 L, Amador % (Auto) 5.9, Eos % (Auto) 0.5, [...] stated that she was sent to the [facility] for further evaluation and it was determined [...] 50 minutes Charges/Coding Visit Charges Inpatient E&M: 57568 Subs Hosp L3 08/30/221999 <Electronically signed by Sabina Rosenberg DO> Cosigner Signature (if applicable): CC: ~ Signed [facility] Work Phone: 1(375) 978-597603-29-2023 History and physical note Author Dr. Forde [facility] August 30, 2022 4:09pm Note Date/Time August 30, 2022 4:0 9pm [facility] Medical Records Department [address] [place] [address] History & Physical Exam 08/30/22 1600 MR#: [id number] Acct: [id number] Name: TRENTON JACKSON Rep #:[id number] : 1970 52 From: Jeison Frode DPM PCP: [facility] St atus:REG ER Location: ED [...] foot pain. Patient has no other complaints. [facility] Medical History CAD (coronary artery disease), big sandy coronary artery CHF (congestive heart failure) GERD [...] 77.4 H, Lymph % (Auto) 15.4 L, Amador % (Auto) 5.9, Eos % (Auto) 0.5, [...] Cosigner Signature (if applicable): CC: ALEK Forde; [facility]~ Signed [facility] Work Phone: [phone]) [phone] History and physical note Author Dr. Forde [facility] August 30, 2022 4:09pm Note Date/Time August 30, 2022 4:0 9pm [facility] Medical Records Department [address] [place] [address] History & Physical Exam 08/30/22 1600 MR#: [id number] Acct: [id number] Name: TRENTON JACKSON Rep #:[id number] : 1970 52 From: Jeison Forde DPM PCP: [facility] St atus:REG ER Location: ED [...] foot pain. Patient has no other complaints. [facility] Medical History CAD (coronary artery disease), big sandy coronary artery CHF (congestive heart failure) GERD [...] 77.4 H, Lymph % (Auto) 15.4 L, Amador % (Auto) 5.9, Eos % (Auto) 0.5, [...] Cosigner Signature (if applicable): CC: ALEK Forde; [facility]~ Signed [facility] Work Phone: [phone] Rawls [facility] August 30, 2022 4:06pm Note Date/Time August 30, 2022 2:0 7pm [facility] Medical Records Department [address] [place] [address] Emergency Department Summary 08/30/22 MR#: [id number] Acct: [id number] Name: TRENTON JACKSON Rep #:[id number] : 1970 52 From: Jeremiah Rawls MD PCP: [facility] St atus:REG ER Location: ED [...] other symptoms. Chief Complaint: Lower Extremity Injury [facility] Medical History CAD (coronary artery disease), big sandy coronary artery CHF (congestive heart failure) GERD [...] 77.4 H Lymph % (Auto) 15.4 L Amador % (Auto) 5.9 Eos % (Auto) 0.5 [...] (Auto) Neut % (Auto) Lymph % (Auto) Amador % (Auto) Eos % (Auto) Baso % [...] EDT , Management Discussion w/another healthcare provider: Mud Tank Operator (Dr. Riccardo Ng with vascular surgery, Dr. [...] TID Qty: 30 0RF [facility] [Primary Care Provider] - What to do if you have Problems For any increased pain, shortness of breath, bleeding, nausea or vomiting, chestpain, or any unexpected problems, contact your Primary Care Provider. Call [facility] ([phone]) or report to the closest Emergency Room. Call 911 if necessary. 08/30/22 1557 <Electronically signed by Jeremiah Rawsl MD> Cosigner Signature (if applicable): CC: [facility] ~ Signed ADDENDUM by Dr. Jeremiah Rawls MD on 08/30/22 at 1606 EKG was obtained for presurgical testing by Dr. Forde. I interpreted the EKG as sinus tachycardia at 118 bpm without ectopy or acute ST changes. No STEMI. 08/30/22 1606<Electronically signed by Jeremiah Rawls MD> Cosigner Signature (if applicable): cc: [facility] ~* Signed [facility] Work Phone: [phone]) 950-132703-13-[address] Black [facility] August 14, 2022 4:44pm Note Date/Time August 14, 2022 2:3 8pm [facility] Medical Records Department [address] [place] [address] Emergency Department Summary 08/14/22 MR#: [id number] Acct: [id number] Name: TRENTON JACKSON Rep #:[id number] : 1970 51 From: Roberto Black MD [facility] atus:REG ER Location: ED HPI History [...] stopping this with poor vascular flow distally. [facility] Medical History CAD (coronary artery disease), big sandy coronary artery CHF (congestive heart failure) GERD [...] 78.3 H Lymph % (Auto) 13.9 L Amador % (Auto) 5.8 Eos % (Auto) 0.8 [...] 81 mg PO DAILY [facility] Referrals: Riccardo Ng MD [Med Staff - Active Staff] - Keep Diandra appointment [facility]] - Disposition Disposition: Home, Self Care What to do if you have Problems For any increased pain, shortness of breath, bleeding, nausea or vomiting, chestpain, or any unexpected problems, contact your Primary Care Provider. Call [facility] ([phone]) or report to the closest Emergency Room. Call 911 if necessary. 08/14/22 1644 <Electronically signed by Roberto Black MD> Cosigner Signature (if applicable): CC: [facility] ~ Signed [facility] Work Phone: 1([phone]) 753-154603-09-2023 Procedure [facility] 07-25-[address] Mcneal [facility] July 25, 2022 11:38am Note Date/Time July 25, 2022 9:21am [facility] Medical Records Department [address] [place] [address] Emergency Department Summary 07/25/22 MR#: [id number] Acct: [id number] Name: TRENTON JACKSON Rep #:[id number] : 1970 51 From: Vidal Mcneal MD [...] chills. She is denying any urinary symptoms. [facility] Medical History CAD (coronary artery disease), big sandy coronary artery CHF (congestive heart failure) Diabetes [...] 78.2 H Lymph % (Auto) 13.7 L Amador % (Auto) 5.2 Eos % (Auto) 1.6 [...] rhythm with a rate of 115. Normal NM interval. QTc is 478. Nonspecific changes throughout, [...] your Primary Care Provider. Call [facility] ([phone]) or report to the closest Emergency Room. Call 911 if necessary. 07/25/22 1138 <Electronically signed by Vidal Mcneal MD> Cosigner Signature (if applicable): CC: Dr. 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 acute [facility] Work Phone: Evaluation note* Diagnosis Onset Date Resolution Status Atherosclerosis of right lower extremity with rest lake n acute 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 acute Atherosclerosis of lower extremity acute 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 acute Atherosclerosis of right lower extremity with rest [place] n acute Cellulitis of right foot acu te Diabetes acute Dry gangrene acute Foot pain, right acute Hyperglycemia acute Lactic acidosis acute Peripheral vascular disease, unspecified acute [facility] Work Phone: Evaluation note* Diagnosis Onset [...] acute Diabetes mellitus, type 2 ch ronic [facility] Work Phone: Evaluation note* Diagnosis Onset [...] Foot pain, right resolved Lactic acidosis resolved [facility] Work Phone: Evaluation note* Diagnosis Onset Date Resolution Status Acute dyspnea acute Chest pain acute Hypoxemia acute Pericardial effusion acute Pleural effusion acute [facility] Work Phone: Evaluation note* Diagnosis Onset Date Resolution Status Chest pain resolved Pleural effusion resolved Bilateral pleural effusion a cute Chest pain acute Hypoxia acute Acute exacerbation of CHF (congestive heart failure) chronic [facility] Work Phone: Evaluation note* Diagnosis Onset Date Resolution Status Chest pain resolved Pleural effusion resolved Bilateral pleural effusion a cute Acute exacerbation of CHF (congestive heart failure) resolved Chest pain resolved Hypoxia resolved CAD (coronary artery disease), big sandy coronary artery acute Essential hypertension acute 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 CAD (coronary artery disease), big sandy coronary artery acute Essential hypertension acute Hypersomnolence acute 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 [facility] Work Phone: Evaluation note* Diagnosis Onset Date Resolution Status Chest pain resolved Pleural effusion resolved Bilateral pleural effusion a cute Acute exacerbation of CHF (congestive heart failure) resolved Chest pain resolved Hypoxia resolved CAD (coronary artery disease), big sandy coronary artery acute Essential hypertension acute 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 CAD (coronary artery disease), big sandy coronary artery acute Essential hypertension acute Hypersomnolence acute 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 Epigastric pain acute GERD (gastroesophageal reflux disease) acute Acute dyspnea acute CHF (congestive heart failure) acute History of cardiomyopathy ac [place] History of coronary artery disease acute Hyperglycemia due to diabetes mellitus acute Hypoxia acute [facility] Work Phone: Evaluation note* Diagnosis Onset Date Resolution Status Bilateral pleural effusion a cute Acute exacerbation of CHF (congestive heart failure) resolved Chest pain resolved Hypoxia resolved CAD (coronary artery disease), big sandy coronary artery acute Essential hypertension acute 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 CAD (coronary artery disease), big sandy coronary artery acute Essential hypertension acute Hypersomnolence acute 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 Epigastric pain acute GERD (gastroesophageal reflux disease) acute Acute dyspnea acute CHF (congestive heart failure) acute History of cardiomyopathy ac [place] History of coronary artery disease acute Hyperglycemia due to diabetes mellitus acute Hypoxia acute [facility] Work Phone: Evaluation note* Diagnosis Onset Date Resolution Status CAD (coronary artery disease), big sandy coronary artery acute Essential hypertension acute 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 CAD (coronary artery disease), big sandy coronary artery acute Essential hypertension acute Hypersomnolence acute 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 Epigastric pain acute GERD (gastroesophageal reflux disease) acute Acute dyspnea acute CHF (congestive heart failure) acute History of cardiomyopathy ac [place] History of coronary artery disease acute Hyperglycemia due to diabetes mellitus acute Hypoxia acute Acute dyspnea acute Bilateral pleural effusion a cute CHF (congestive heart failure) acute Hypoxia acute [facility] Work Phone: Evaluation note* Diagnosis Onset Date Resolution Status Acute dyspnea acute History of cardiomyopathy ac [place] History of coronary artery disease acute Hyperglycemia due to diabetes mellitus acute Hypoxia resolved Acute dyspnea acute Bilateral pleural effusion a cute Hypoxia resolved [facility] Work Phone: Evaluation note* Diagnosis Onset Date Resolution Status Acute dyspnea acute Bilateral pleural effusion a cute Hypoxia resolved [facility] Work Phone: Evaluation note* Diagnosis Closed [...] 2025 8:09pm Tobacco abuse acute January 8:09pm [facility] Work Phone: History and physical note Author Rosaura Crane [facility] Note Date/Time September 07, 2024 10:0 0pm [facility] Medical Records Department [address] [place] [id number] H&P Exam - Hospitalist 09/07/[id number] MR#: [id number] Acct: [id number] Name: TRENTON JACKSON Rep #:[id number] : 1970 54 From: Rosaura Crane MD PCP: RUTH Lawrence, AEROSPACE ENGINEER-C Statu s:ADM REHAN Location: [place] [address] HPI - General General Date of Admission: [...] which resolved who re- presents to the [facility] ED on 09/07/24 with history [...] not obtained upon requested evaluation of patient. [facility] Medical History L5 vertebral fracture [...] (congestive heart failure) CAD (coronary artery disease), [place] coronary artery Home Medications ?Medication ?Instructions ?Recorded [...] IN 1 - 2 pump subdermal Q6H NM N FOR 02/14/24 Unknown History saltsable FEET [...] % (Auto) Cancelled, Lymph % (Auto) Cancelled, Amador % (Auto) Cancelled, Eos % (Auto) Cancelled, [...] Drop Cells Cancelled, Ovalocytes Cancelled, Stomatocytes Cancelled, [place] Bodies Cancelled, [place] Cells Cancelled, Bite Cells Cancelled, Crenated Cell [...] 77.8 H, Lymph % (Auto) 14.5 L, Amador % (Auto) 5.0, Eos % (Auto) 1.7, [...] recommend MRI for further characterization. [facility] Assessment & Plan Assessment/Plan (1) Intractable [...] which resolved who re- presents to the [facility] ED on 09/07/24 with history [...] 16 minutes. Charges/Coding Visit Charges Inpatient E&M: 81463 Init Hosp L3 Procedures Hospitalists Procedures: 45801 Advncd Care Plan 30 Min 09/07/24 2200 <Electronically signed by Rosaura Crane MD> Cosigner Signature (if applicable): CC: C AEROSPACE ENGINEER-C Zohreh Mckeon; Dr. Rosaura Crane MD~ Signed [facility] Work Phone: Hospital Discharge instructions Additional Instructions Continue oral fluids. Zofran as needed. Take pain medicines as prescribed for your fracture. Future prescriptions for pain medicines need to be provided by your PCP or your specialist. Glucose is 402, normal gap, you are not in DKA. Take your medications at home. Follow-up with your doctor.[facility] Work Phone: Hospital Discharge instructions Additional Instructions Hip x-ray negative. Labs are stable. Follow-up with your doctor.[facility] Work Phone: Hospital Discharge instructions Additional Instructions I given you a month supply of gabapentin. You will take 300 mg twice a day for the first 3 days, then you may continue 300 mg 3 times a day for the remainder of the prescription. You need to follow-up with your PCP, I also gave you pain management.[facility] Work Phone: Hospital Discharge instructions Additional Instructions Plenty of fluids and rest. Slowly increase your diet as tolerated. Zofran as needed for nausea. You may swallow or let it dissolve under your tongue. Follow-up with your primary care provider if not improving or return if feeling worse or unable to keep fluids down. Tylenol for hip and knee pain. Follow-up if not improving.[facility] Work Phone: Hospital Discharge instructions Additional Instructions Continue your previous pain medications. Your postoperative wound does not appear to be acutely infected.[facility] Work Phone: Hospital Discharge instructions Additional Instructions Reviewed your MRI and patient recently. Stable L3 fracture, stable L5 fracture. Noted disc herniation L3-L4, this is likely culprit of your pain on your left leg. Continue your gabapentin 300 g 3 times a day as you have at home. 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 Use Zofran as needed. Follow-up with pain management and orthopedic spine for outpatient evaluation. Monitor your glucose with your insulin.[facility] Work Phone: Hospital Discharge instructions Additional Instructions Workup negative for DKA. continue toAvoid marijuana use. Use your nausea medicines as needed. Follow-up was given.[facility] Work Phone: Hospital Discharge instructionsAdditional Instructions You were given IV fluids and insulin to treat your high blood sugar. I think the pain you have in your legs is neuropathy. This means it is nerve pain. It is treated with medications like gabapentin. I recommend you talk to your prescribing doctor for further care. [facility] Work Phone: Reason for referral (narrative)* Consultation (Routine) - Pending Review Specialty Diagnoses / Procedures Referred By Contac t Referred To Contact Physical Therapy Diagnoses Closed 3-part fracture of proximal humerus, right, with routine healing, subsequent encounter Procedures NM OFFICE/OUTPATIENT NEW HIGH MDM 60-74 MINUTES Jerry Jones PA-C [address] [address] Referral ID Status Reason Start Date Expiration Date Visits Requested Visits Authorized [id number] Pending Review Specialty Services Required 06/08/2022 12/05/2022 99 99 [facility] for referral (narrative)No reason for referral information [facility] Work Phone: Summary Purpose Family History [...] Will No March 27 10:33am Power of Liquor Commissioner No March 27, 2022 10:33am Advance Directive Response Recorded Date/ Time Advance Directives No February 01, 2016 5:21am Living Will No April 17 022 4:47pm Power of Liquor Commissioner No April 17, 2022 4:47pm Advance Directive Response Recorded Date/ Time Advance Directives No February 01, 2016 5:21am Living Will No April 18 022 3:36pm Power of Liquor Commissioner No April 18, 2022 3:36pm Advance Directive Response Recorded Date/ Time Advance Directives No February 01, 2016 5:21am Living Will No May 09 9:47pm Power of Liquor Commissioner No May 09, 2022 9:47pm Advance Directive Response Recorded Date/ Time Advance Directives No February 01, 2016 5:21am Living Will No May 19, 2 022 5:31pm Power of Liquor Commissioner No May 19, 2022 5:31pm Advance Directive Response Recorded Date/ Time Advance Directives No February 01, 2016 5:21am Living Will No July 25, 2 023 9:18am Power of Liquor Commissioner No July 25, 2022 9:18am Advance Directive Response Recorded Date/ Time Advance Directives No February 01, 2016 5:21am Living Will No August 03, 2022 12:21pm Power of Liquor Commissioner No August 03 12:21pm Advance Directive Response Recorded Date/ Time Advance Directives No August 10 7:07am Living Will No August 10, 2022 7:07am Power of Liquor Commissioner No August 10 7:07am Advance Directive Response Recorded Date/ Time Advance Directives No August 10 8:07am Living Will No August 14, 2022 1:53pm Power of Liquor Commissioner No August 14 1:53pm Advance Directive Response Recorded Date/ Time Advance Directives No August 10 8:07am Living Will No August 30, 2022 4:44pm Power of Liquor Commissioner No August 30 4:44pm Advance Directive Response Recorded Date/ Time Advance Directives No August 10 8:07am Living Will No September 05, 2022 12:31pm Power of Liquor Commissioner No September 05 12:31pm Advance Directive Response Recorded Date/ Time Advance Directives No August 10 8:07am Living Will No September 09, 2022 7:25pm Power of Liquor Commissioner No September 09 7:25pm Advance Directive Response Recorded Date/ Time Advance Directives No August 10 8:07am Living Will No September 11, 2022 3:01pm Power of Liquor Commissioner No September 11 3:01pm Advance Directive Response Recorded Date/ Time Advance Directives No August 10 8:07am Living Will No September 18, 2022 2:32pm Power of Liquor Commissioner No September 18 2:32pm Advance Directive Response Recorded Date/ Time Advance Directives No August 10 8:07am Living Will No October 01, 2022 11:14am Power of Liquor Commissioner No October 01 11:14am Advance Directive Response Recorded Date/ Time Advance Directives No August 10 8:07am Living Will No January 01, 2023 12:13pm Power of Liquor Commissioner No January 01 12:13pm Advance Directive Response Recorded Date/ Time Advance Directives No August 10 8:07am Living Will No January 01, 2023 5:09pm Power of Liquor Commissioner No January 01 5:09pm Advance Directive Response Recorded Date/ Time Advance Directives No August 10 8:07am Living Will No February 02, 2 023 11:25am Power of Liquor Commissioner No February 02, 2023 11:25am Advance Directive Response Recorded Date/ Time Advance Directives No August 10 8:07am Living Will No February 02, 2 023 8:41pm Power of Liquor Commissioner No February 02, 2023 8:41pm Advance Directive Response Recorded Date/ Time Advance Directives No August 10 7:07am Living Will No February 02, 2 023 7:41pm Power of Liquor Commissioner No February 02, 2023 7:41pm Advance Directive Response Recorded Date/ Time Advance Directives No August 10 7:07am Living Will No May 03, 2 023 1:37pm Power of Liquor Commissioner No May 03, 2023 1:37pm Advance Directive Response Recorded Date/ Time Advance Directives No August 10 7:07am Living Will No May 03, 2 023 5:41pm Power of Liquor Commissioner No May 03, 2023 5:41pm Advance Directive Response Recorded Date/ Time Advance Directives No August 10 7:07am Living Will No May 22, 2 023 2:33pm Power of Liquor Commissioner No May 22, 2023 2:33pm Advance Directive Response Recorded Date/ Time Advance Directives No August 10 7:07am Living Will No June 13 3:00am Power of Liquor Commissioner No June 13, 2023 3:00am Advance Directive Response Recorded Date/ Time Advance Directives No August 10 7:07am Living Will No June 19 9:35am Power of Liquor Commissioner No June 19, 2023 9:35am Advance Directive Response Recorded Date/ Time Advance Directives No August 10 8:07am Living Will No September 02, 2023 7:42am Power of Liquor Commissioner No September 01 7:42am Date Activated Date [...] October 15, 2023 5 :10pm Power of Liquor Commissioner No October 15, 2023 5:10pm Advance Directive Response Recorded Date/ Time Living Will No April 25 024 5:40pm Do you have a Healthcare Power of Liquor Commissioner? No April 25, 2024 5:40pm Living Will No June 29 10:04pm Do you have a Healthcare Power of Liquor Commissioner? No June 29, 2024 10:04pm Living Will No August 26, 2024 10:15am Do you have a Healthcare Power of Liquor Commissioner? No August 26, 2024 10:15am Living Will No August 01 025 2:53pm Do you have a Healthcare Power of Liquor Commissioner? No August 01, 2024 2:53pm Advance Directives No August 10 8:07am Advance Directive Response Recorded Date/ Time Living Will No June 29 10:04pm Do you have a Healthcare Power of Liquor Commissioner? No June 29, 2024 10:04pm Living Will No August 26, 2024 8:30pm Do you have a Healthcare Power of Liquor Commissioner? No August 26, 2024 8:30pm Living Will No August 01 025 2:53pm Do you have a Healthcare Power of Liquor Commissioner? No August 01, 2024 2:53pm Advance Directives No August 10 8:07am Advance Directive Response Recorded Date/ Time Living Will No June 29 10:04pm Do you have a Healthcare Power of Liquor Commissioner? No June 29, 2024 10:04pm Living Will No August 26, 2024 8:30pm Do you have a Healthcare Power of Liquor Commissioner? No August 26, 2024 8:30pm Living Will No August 01, 2 025 2:53pm Do you have a Healthcare Power of Liquor Commissioner? No August 01, 2024 2:53pm Living Will No September 05, 2024 10:31am Do you have a Healthcare Power of Liquor Commissioner? No September 05, 2024 10:31am Advance Directives No August 10 8:07am Advance Directive Response Recorded Date/ Time Living Will No June 29 10:04pm Do you have a Healthcare Power of Liquor Commissioner? No June 29, 2024 10:04pm Living Will No August 26, 2024 8:30pm Do you have a Healthcare Power of Liquor Commissioner? No August 26, 2024 8:30pm Living Will No September 07, 2024 3:55pm Do you have a Healthcare Power of Liquor Commissioner? No September 07, 2024 3:55pm Living Will No August 01, 2 025 2:53pm Do you have a Healthcare Power of Liquor Commissioner? No August 01, 2024 2:53pm Living Will No September 05, 2024 10:31am Do you have a Healthcare Power of Liquor Commissioner? No September 05, 2024 10:31am Advance Directives No August 10 8:07am Advance Directive Response Recorded Date/ Time Living Will No June 29 10:04pm Do you have a Healthcare Power of Liquor Commissioner? No June 29, 2024 10:04pm Living Will No August 26, 2024 8:30pm Do you have a Healthcare Power of Liquor Commissioner? No August 26, 2024 8:30pm Living Will No September 07, 2024 10:21pm Do you have a Healthcare Power of Liquor Commissioner? No September 07, 2024 10:21pm Living Will No August 01, 2 025 2:53pm Do you have a Healthcare Power of Liquor Commissioner? No August 01, 2024 2:53pm Living Will No September 05, 2024 10:31am Do you have a Healthcare Power of Liquor Commissioner? No September 05, 2024 10:31am Advance Directives No August 10 8:07am Advance Directive Response Recorded Date/ Time Living Will No June 29 10:04pm Do you have a Healthcare Power of Liquor Commissioner? No June 29, 2024 10:04pm Living Will No August 26, 2024 8:30pm Do you have a Healthcare Power of Liquor Commissioner? No August 26, 2024 8:30pm Living Will No September 07, 2024 10:21pm Do you have a Healthcare Power of Liquor Commissioner? No September 07, 2024 10:21pm Living Will No September 21, 2024 12:25pm Do you have a Healthcare Power of Liquor Commissioner? No September 21, 2024 12:25pm Living Will No August 01 2:53pm Do you have a Healthcare Power of Liquor Commissioner? No August 01, 2024 2:53pm Living Will No September 05, 2024 10:31am Do you have a Healthcare Power of Liquor Commissioner? No September 05, 2024 10:31am Advance Directives No August 10 8:07am Advance Directive Response Recorded Date/ Time Living Will No June 29 10:04pm Do you have a Healthcare Power of Liquor Commissioner? No June 29, 2024 10:04pm Living Will No August 26, 2024 8:30pm Do you have a Healthcare Power of Liquor Commissioner? No August 26, 2024 8:30pm Living Will No September 07, 2024 10:21pm Do you have a Healthcare Power of Liquor Commissioner? No September 07, 2024 10:21pm Living Will No September 21, 2024 12:25pm Do you have a Healthcare Power of Liquor Commissioner? No September 21, 2024 12:25pm Do you have a Healthcare Power of Liquor Commissioner? No September 29, 2024 10:26am Living Will No August 01 2:53pm Do you have a Healthcare Power of Liquor Commissioner? No August 01, 2024 2:53pm Living Will No September 05, 2024 10:31am Do you have a Healthcare Power of Liquor Commissioner? No September 05, 2024 10:31am Advance Directives No August 10 8:07am Advance Directive Response Recorded Date/ Time Living Will No August 26, 2024 8:30pm Do you have a Healthcare Power of Liquor Commissioner? No August 26, 2024 8:30pm Living Will No September 07, 2024 10:21pm Do you have a Healthcare Power of Liquor Commissioner? No September 07, 2024 10:21pm Living Will No September 21, 2024 12:25pm Do you have a Healthcare Power of Liquor Commissioner? No September 21, 2024 12:25pm Do you have a Healthcare Power of Liquor Commissioner? No September 29, 2024 10:26am Living Will No September 05, 2024 10:31am Do you have a Healthcare Power of Liquor Commissioner? No September 05, 2024 10:31am Do you have a Healthcare Power of Liquor Commissioner? No December 12, 2024 4:18pm Advance Directives No August 10 8:07am Advance Directive Response Recorded Date/ Time Do you have a Healthcare Power of Liquor Commissioner? No December 12, 2024 4:18pm Do you have a Healthcare Power of Liquor Commissioner? No January 29, 2025 3:44pm Advance Directives No August 10 8:07am Advance Directive Response Recorded Date/ Time Do you have a Healthcare Power of Liquor Commissioner? No December 12, 2024 4:18pm Do you have a Healthcare Power of Liquor Commissioner? No January 29, 2025 9:51pm Advance Directives No August 10 8:07am Hospital Course Note HNO ID: [id number] Author: Paige Handy Service: Hospital Medicine Author [...] (more content not included)... Note HNO ID: [id number] Author: Rosi Morrow Service: Hospital Medicine Author [...] (more content not included)... Note HNO ID: [id number] Author: Maria Isabel Sherman Service: Clinical Cardiology [...] at Discharge: .Home Vital Signs: T PRBPSpO2 [id number]% Date/Time09/29 11: 11: 11: 11: 11:35 Range(36.1C [...] not included)... Procedure Findings Note HNO ID: [id number] Author: Maria Isabel Sherman Service: Clinical Cardiology [...] Congestive heart failure Congestive heart failure EST ([facility]) 2 wk fu per CLIENT EXPERIENCE SPECIALIST G47.10 Reason for Visit Chest pain Pleural effusion Bilateral pleural effusion Acute exacerbation of CHF (congestive heart failure) Chest pain Hypoxia CAD (coronary artery disease), [place] coronary artery Essential hypertension Ischemic cardiomyopathy CAD (coronary artery disease), [place] coronary artery Essential hypertension Hypersomnolence Ischemic cardiomyopathy Chief Complaint CHF, PLEURITIC CHEST PAIN CHF, PLEURITIC CHEST PAIN CHF, PLEURITIC CHEST PAIN CHF, PLEURITIC CHEST PAIN CHF Congestive heart failure Congestive heart failure EST ([facility]) 2 wk fu per CLIENT EXPERIENCE SPECIALIST G47.10 Epigastric Pain/Recurrent Vomiting Reason for Visit Chest pain Pleural effusion Bilateral pleural effusion Acute exacerbation of CHF (congestive heart failure) Chest pain Hypoxia CAD (coronary artery disease), [place] coronary artery Essential hypertension Ischemic cardiomyopathy CAD (coronary artery disease), [place] coronary artery Essential hypertension Hypersomnolence Ischemic cardiomyopathy Chief Complaint CHF, PLEURITIC CHEST PAIN CHF, PLEURITIC CHEST PAIN CHF Congestive heart failure Congestive heart failure EST ([facility]) 2 wk fu per CLIENT EXPERIENCE SPECIALIST G47.10 Epigastric Pain/Recurrent Vomiting CHF EXACERBATION Reason for Visit Chest pain Pleural effusion Bilateral pleural effusion Acute exacerbation of CHF (congestive heart failure) Chest pain Hypoxia CAD (coronary artery disease), [place] coronary artery Essential hypertension Ischemic cardiomyopathy CAD (coronary artery disease), [place] coronary artery Essential hypertension Hypersomnolence Ischemic cardiomyopathy Epigastric pain GERD (gastroesophageal reflux disease) Acute dyspnea CHF (congestive heart failure) History of cardiomyopathy History of coronary artery disease Hyperglycemia due to diabetes mellitus Hypoxia Chief Complaint CHF Congestive heart failure Congestive heart failure EST ([facility]) 2 wk fu per CLIENT EXPERIENCE SPECIALIST G47.10 Epigastric Pain/Recurrent Vomiting CHF EXACERBATION CHF EXACERBATION CHF EXACERBATION CHF EXACERBATION CHF EXACERBATION CHF EXACERBATION CHF EXACERBATION CHF EXACERBATION Reason for Visit Bilateral pleural ef fusion Acute exacerbation of CHF (congestive heart failure) Chest pain Hypoxia CAD (coronary artery disease), [place] coronary artery Essential hypertension Ischemic cardiomyopathy CAD (coronary artery disease), [place] coronary artery Essential hypertension Hypersomnolence Ischemic cardiomyopathy Epigastric pain GERD (gastroesophageal reflux disease) Acute dyspnea CHF (congestive heart failure) History of cardiomyopathy History of coronary artery disease Hyperglycemia due to diabetes mellitus Hypoxia Chief Complaint CHF Congestive heart failure Congestive heart failure EST ([facility]) 2 wk fu per CLIENT EXPERIENCE SPECIALIST G47.10 Epigastric Pain/Recurrent Vomiting CHF EXACERBATION CHF EXACERBATION CHF EXACERBATION CHF EXACERBATION CHF EXACERBATION CHF EXACERBATION CHF EXACERBATION CHF EXACERBATION foot pain Reason for Visit Bilateral pleural ef fusion Acute exacerbation of CHF (congestive heart failure) Chest pain Hypoxia CAD (coronary artery disease), [place] coronary artery Essential hypertension Ischemic cardiomyopathy CAD (coronary artery disease), [place] coronary artery Essential hypertension Hypersomnolence Ischemic cardiomyopathy Epigastric pain GERD (gastroesophageal reflux disease) Acute dyspnea CHF (congestive heart failure) History of cardiomyopathy History of coronary artery disease Hyperglycemia due to diabetes mellitus Hypoxia Chief Complaint EST ([facility]) 2 wk fu per CLIENT EXPERIENCE SPECIALIST G47.10 Epigastric Pain/Recurrent Vomiting CHF EXACERBATION CHF EXACERBATION CHF EXACERBATION CHF EXACERBATION CHF EXACERBATION CHF EXACERBATION CHF EXACERBATION CHF EXACERBATION foot pain n/v ACUTE ON CHRONIC HFREF Reason for Visit CAD (coronary artery disease), [place] coronary artery Essential hypertension Ischemic cardiomyopathy CAD (coronary artery disease), [place] coronary artery Essential hypertension Hypersomnolence Ischemic cardiomyopathy Epigastric pain GERD (gastroesophageal reflux disease) Acute dyspnea CHF (congestive heart failure) History of cardiomyopathy History of coronary artery disease Hyperglycemia due to diabetes mellitus Hypoxia Acute dyspnea Bilateral pleural effusion CHF (congestive heart failure) Hypoxia Chief Complaint EST ([facility]) 2 wk fu per CLIENT EXPERIENCE SPECIALIST G47.10 Epigastric Pain/Recurrent Vomiting CHF EXACERBATION CHF EXACERBATION CHF EXACERBATION CHF EXACERBATION CHF EXACERBATION CHF EXACERBATION CHF EXACERBATION CHF EXACERBATION foot pain n/v ACUTE ON CHRONIC HFREF ACUTE ON CHRONIC HFREF ACUTE ON CHRONIC HFREF ACUTE ON CHRONIC HFREF ACUTE ON CHRONIC HFREF Reason for Visit CAD (coronary artery disease), [place] coronary artery Essential hypertension Ischemic cardiomyopathy CAD (coronary artery disease), [place] coronary artery Essential hypertension Hypersomnolence Ischemic cardiomyopathy Epigastric pain GERD (gastroesophageal reflux disease) Acute dyspnea CHF (congestive heart failure) History of cardiomyopathy History of coronary artery disease Hyperglycemia due to diabetes mellitus Hypoxia Acute dyspnea Bilateral pleural effusion CHF (congestive heart failure) Hypoxia Chief Complaint EST ([facility]) 2 wk fu per CLIENT 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 G47.10 Epigastric Pain/Recurrent Vomiting CHF EXACERBATION CHF EXACERBATION CHF EXACERBATION CHF EXACERBATION CHF EXACERBATION CHF EXACERBATION CHF EXACERBATION CHF EXACERBATION foot pain n/v ACUTE ON CHRONIC HFREF ACUTE ON CHRONIC HFREF ACUTE ON CHRONIC HFREF ACUTE ON CHRONIC HFREF ACUTE ON CHRONIC HFREF fall Reason for Visit CAD (coronary artery disease), [place] coronary artery Essential hypertension Ischemic cardiomyopathy CAD (coronary artery disease), [place] coronary artery Essential hypertension Hypersomnolence Ischemic cardiomyopathy [...] effusion Hypoxia Chief Complaint 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 Chief Complaint Admit [...] PERIPHERAL ARTERIAL CRITICAL STENOSIS [place] [facility] August 27, 2024 7:25am PERIPHERAL ARTERIAL CRITICAL STENOSIS [place] [facility] August 28, 2024 5:55pm PERIPHERAL ARTERIAL CRITICAL STENOSIS [place] [facility] August 29, 2024 9:45am PERIPHERAL ARTERIAL CRITICAL STENOSIS [place] [facility] August 30, 2024 3:28pm PERIPHERAL ARTERIAL CRITICAL STENOSIS WI [facility] August 31, 2024 8:54am PERIPHERAL ARTERIAL CRITICAL STENOSIS [place] [facility] September 01, 2024 8:19am PERIPHERAL ARTERIAL CRITICAL [...] 01, 2024 1:45pm PERIPHERAL ARTERIAL CRITICAL STENOSIS [facility] August 26, 2024 8:03pm PERIPHERAL ARTERIAL CRITICAL STENOSIS [facility] August 27, 2024 7:05am PERIPHERAL ARTERIAL CRITICAL STENOSIS [facility] August 27, 2024 7:25am PERIPHERAL ARTERIAL CRITICAL STENOSIS [facility] August 28, 2024 5:55pm PERIPHERAL ARTERIAL CRITICAL STENOSIS [facility] August 29, 2024 9:45am PERIPHERAL ARTERIAL CRITICAL STENOSIS [facility] August 30, 2024 3:28pm PERIPHERAL ARTERIAL CRITICAL STENOSIS [facility] August 31, 2024 8:54am PERIPHERAL ARTERIAL CRITICAL STENOSIS [facility] September 01, 2024 8:19am PERIPHERAL ARTERIAL CRITICAL STENOSIS [facility] September 02, 2024 7:51am n/v/d, abd [...] 27, 2024 7:25am PERIPHERAL ARTERIAL CRITICAL STENOSIS [facility] August 28, 2024 5:55pm PERIPHERAL ARTERIAL CRITICAL STENOSIS [facility] August 29, 2024 9:45am PERIPHERAL ARTERIAL CRITICAL STENOSIS [facility] August 30, 2024 3:28pm PERIPHERAL ARTERIAL CRITICAL STENOSIS [facility] August 31, 2024 8:54am PERIPHERAL ARTERIAL CRITICAL STENOSIS [facility] September 01, 2024 8:19am PERIPHERAL ARTERIAL CRITICAL STENOSIS [facility] September 02, 2024 7:51am n/v/d, abd [...] PERIPHERAL ARTERIAL CRITICAL [place]OS[place] [facility] August 28, 2024 5:55pm PERIPHERAL ARTERIAL CRITICAL STENOSIS [facility] August 29, 2024 9:45am PERIPHERAL ARTERIAL CRITICAL ST[facility]OSIS [place] [facility] August 30, 2024 3:28pm PERIPHERAL ARTERIAL CRITICAL ST[place]OSIS [place] [facility] August 31, 2024 8:54am PERIPHERAL ARTERIAL CRITICAL STENOSIS [place] [facility] September 01, 2024 8:19am PERIPHERAL ARTERIAL CRITICAL [...] PERIPHERAL ARTERIAL CRITICAL ST[facility]OSIS [place] [facility] August 29, 2024 9:45am PERIPHERAL ARTERIAL CRITICAL [...] content) DATE CREATED AUTHOR 07/24/2018 [facility] DATE CREATED AUTHOR AUTHOR'S ORGANIZ ATION 04/08/2019 [facility] DATE CREATED AUTHOR AUTHOR'S ORGANIZ ATION 08/28/2019 [facility] DATE CREATED AUTHOR AUTHOR'S ORGANIZ ATION 06/09/2020 [facility] DATE CREATED AUTHOR AUTHOR'S ORGANIZ ATION 06/09/2020 [facility] DATE CREATED AUTHOR AUTHOR'S ORGANIZ ATION 08/17/2021 [facility] DATE CREATED AUTHOR AUTHOR'S ORGANIZ ATION 05/06/[address] [facility] DATE CREATED AUTHOR AUTHOR'S ORGANIZ ATION 09/07/2022 [facility] ([place]) DATE CREATED AUTHOR AUTHOR'S ORGANIZ ATION 05/30/2024 [facility] DATE CREATED AUTHOR AUTHOR'S ORGANIZ ATION 07/07/2024 [facility] DATE CREATED AUTHOR AUTHOR'S ORGANIZ ATION 09/14/2024 [facility] DATE CREATED AUTHOR AUTHOR'S ORGANIZ ATION 04/16/2025 [facility] <item> Privacy Markings (unrecogniz ed section [...] [facility] Primary Care Provider Active Zohreh Mckeon AEROSPACE ENGINEER, AEROSPACE ENGINEER-C Attending Provider Active Team Status: Inactive Member Role Status Dates Dr. Nathaly Lainez Primary Care Provider Active Dr. Vidal Mcneal MD Emergency Provider Active Team Status: Inactive Member Role Status Dates Dr. Nathaly Lainez Primary Care Provider Active Dr. Riccardo Hillman DO Emergency Provider Active Team Status: Active Member Role Status Dates Dr. Uziel Conteh MD Family Provider Active [facility] Primary Care Provider A ctive Team Status: Inactive Member Role Status Dates Dr. Nathaly Lainez Primary Care Provider, Referring P rovider Active Veda SAALZAR, PA Attending Provider Active Team Status: Active Member Role Status Dates Dr. Riccardo Ng MD Attending Provider, Referring Provider, Other Provider Active [facility] Primary Care Provider A ctive Team Status: [...] MD Attending Provider, Referring Pro vider Active [facility] Primary Care Provider A ctive Team Status: Inactive Member Role Status Dates [facility] Primary Care Provider A ctive Dr. Roberto Black MD Emergency Provider Active Team Status: Inactive Member Role Status Dates [facility] Primary Care Provider, Referring Provider Active MARTIN Sheldon Attending Provider Active Team Status: Active Member Role Status Dates [facility] Primary Care Provider A ctive Dr. Riccardo Ng MD Attending Provider Active Team Status: Inactive Member Role Status Dates Dr. Nathaly Lainez Primary Care Provider Active Dr. Ananda Coyle MD Attending Provider, Emergency Pro vider Active Team Status: Inactive Member Role Status MARTIN Sheldon Attending Provider, Referrin g Provider Active [facility] Primary Care Provider A ctive Team Status: Inactive Member Role Status Dates [facility] Primary Care Provider A ctive Dr. Roberto Black MD Attending Provider, Emergency Provider Active Team Status: Active Member Role Status Dates [facility] Primary Care Provider A ctchristianne Rawls MD Emergency Provider Active Dr. Jeison Forde DPM Admit Provider, Attending Pro vider Active Dr. Sabina Rosenberg DO Other Provider Active Team Status: Active Member Role Status Dates [facility] Primary Care Provider A ctive Jeremiah Rawls MD Emergency Provider Active Dr. Jeison Forde DPM Admit Provider, Other Provide r Active Dr. Sabina Rosenberg DO Attending Provider, Other Pro vider Active Team Status: Active Member Role Status Dates [facility] Primary Care Provider A ctive Dr. Sanjiv Alcantar MD Attending Provider Activ e Team Status: Inactive Member Role Status Dates [facility] Primary Care Provider A ctive Jeremiah Rawls MD Emergency Provider Active Dr. Jeison Forde , DPM Admit Provider, Attending Pro vider Active Dr. Sabina Rosenberg DO Other Provider Active Team Status: Active Member Role Status Dates [facility] Primary Care Provider A ctive Jeremiah Rawls MD Emergency Provider Active Dr. Jeison Forde , DPM Admit Provider, Referring Provider, Other Provider Active Dr. Sabina Rosenberg DO Attending Provider, Other Pro vider Active Team Status: Inactive Member Role Status Dates [facility] Primary Care Provider A ctive Dr. Yvette Hanley DO Emergency Provider Active Team Status: Active Member Role Status Dates [facility] Primary Care Provider A ctive Dr. Riccardo Ng MD Attending Provider Active MARTIN Sheldon Referring Provider Active Team Status: Active Member Role Status Dates [facility] Primary Care Provider A ctive Veda SALAZAR PA Attending Provider, Referrin g Provider Active Team Status: Inactive Member Role Status Dates [facility] Primary Care Provider A ctive Dr. Griselda Christina MD Emergency Provider Active Team Status: Inactive Member Role Status Dates [facility] Primary Care Provider A ctive MARTIN Sheldon Attending Provider, Referrin g Provider Active Team Status: Inactive Member Role Status [facility] Primary Care Provider A ctive Dr. Yvette Hanley DO Attending Provider, Emergency Pro vider Active Team Status: Inactive Member Role Status Dates [facility] Primary Care Provider A ctive Dr. Griselda Christina MD Attending Provider, Emergency Provider Active Team Status: Inactive Member Role Status Dates [facility] Primary Care Provider A ctive Dr. Zack Card DO Emergency Provider Active Team Status: Inactive Member Role Status [facility] Primary Care Provider A ctive Dr. Zack Card DO Attending Provider, Emergency Provide r Active Team Status: Inactive Member Role Status [facility] Primary Care Provider A ctive Dr. Ananda Coyle MD Referring Provider, Emergency Pro vider Active Team Status: Inactive Member Role Status Dates Dr. Serrato [facility] Primary Care Provider, Referring P rovider Active MARTIN Horn Attending Provider Active Team Status: Inactive Member Role Status Dates [facility] Primary Care Provider, Referring Provider Active MARTIN Horn Attending Provider Active Team Status: Active Member Role Status Dates [facility] Primary Care Provider A ctive Dr. Riccardo Ng MD Attending Provider Active MARTIN Horn Referring Provider Active Team Status: Active Member Role Status Dates [facility] Primary Care Provider A ctive Dr. Riccardo Ng MD Attending Provider Active Dr. Yvette Hanley DO Referring Provider Active Team Status: Inactive Member Role Status Dates MARTIN Horn Attending Provider, Referring Provider Active [facility] Primary Care Provider A ctive Team Status: Inactive Member Role Status Dates [facility] Primary Care Provider A ctive MARTIN Horn Attending Provider, Referring Provider Active Team Status: Inactive Member Role Status Dates [facility] Primary Care Provider A ctive Dr. Ananda Coyle MD Attending Provider, Referring Provider, Emergency Provider Active Team Status: Active Member Role Status Dates [facility] Primary Care Provider A ctive Dr. Yvette Hanley DO Emergency Provider Active Dr. Sabina Rosenberg DO Admit Provider, Attending Pro vider Active Team Status: Active Member Role Status [facility] Primary Care Provider A ctive Dr. Yvette Hanley DO Emergency Provider Active Dr. Sabina Rosenberg DO Admit Provider, Attending Provider, Other Provider Active Team Status: Inactive Member Role Status Dates [facility] Primary Care Provider A ctive Dr. Yvette Hanley DO Emergency Provider Active Dr. Sabina Rosenberg DO Admit Provider, Attending Pro vider Active Team Status: Active Member Role Status Dates [facility] Primary Care Provider A ctive Dr. Zack Card DO Emergency Provider Active Dr. Brandon Adames MD Admit Provi dianelys, Attending Provider, Other Provider Active Team Status: Active Member Role Status Dates [facility] Primary Care Provider A ctive Dr. Zack Card , DO Emergency Provider Active Dr. Brandon Adames MD Admit Provider, Attending Provider Active Team Status: Inactive Member Role Status Dates [facility] Primary Care Provider A ctive Dr. Zack Card DO Emergency Provider Active Dr. Brandon Adames MD Admit Provider, Other Pro vider Active Dr. Sabina Rosenberg DO Attending Provider Active Team Status: Inactive Member Role Status [facility] Primary Care Provider, Referring Provider Active Dr. Alli Brito MD Attending Provider Active Team Status: Active Member Role Status Dates [facility] Primary Care Provider A ctive Dr. Zack Card , Emergency Provider Active Dr. Brandon Adames MD Admit Provider, Other Pro vider Active Dr. Sabina Rosenberg DO Attending Provider, Other Pro vider Active Team Status: Inactive Member Role Status [facility] Primary Care Provider, Referring Provider Active Juancarlos Pandey AEROSPACE ENGINEER, AEROSPACE ENGINEER-C Attending Provider Active Team Status: Inactive Member Role Status [facility] Primary Care Provider A ctive Juancarlos Pandey AEROSPACE ENGINEER, AEROSPACE ENGINEER-C Attending Provider, Referring Pro vider Active Team Status: Inactive Member Role Status [facility] Primary Care Provider, Referring Provider Active Dr. Lino Sousa MD Attending Provider Active Team Status: Inactive Member Role Status [facility] Primary Care Provider A ctive Dr. Lino Sousa MD Attending Provider, Referr ing Provider Active Team Status: Active Member Role Status [facility] Primary Care Provider A ctive Dr. Ananda Coyle MD Emergency Provider Active Dr. Lei Justin DO Admit Provider, Attending Provider Active Team Status: Active Member Role Status [facility] Primary Care Provider A ctive Dr. Ananda Coyle MD Emergency Provider Active Dr. Lei Justin DO Admit Provider, Other Pro vider Active Dr. Alli Brito MD Attending Provider, Other Provide r Active Dr. Brenda Posadas MD Other Provider Active Team Status: Active Member Role Status Dates [facility] Primary Care Provider A ctive Dr. Ananda Coyle MD Emergency Provider Active Dr. Lei Justin DO Admit Provider, Other Pro vider Active Dr. Alli Brito MD Other Provider Active Dr. Brenda Posadas MD Attending Provider, Other Provid er Active Team Status: Active Member Role Status Dates [facility] Primary Care Provider A ctive Dr. Ananda Coyle MD Emergency Provider Active Dr. Lei Justin , DO Admit Provider, Other Pro vider Active Dr. Alli Brito MD Other Provider Active Dr. Latricia Aaron MD Attending Provider, Other Provid er Active Dr. Brenda Posadas MD Other Provider Active Team Status: Inactive Member Role Status [facility] Primary Care Provider A ctive Dr. Ananda Coyle MD Emergency Provider Active Dr. Lei Justin , DO Admit Provider, Other Pro vider Active Dr. Alli Brito MD Other Provider Active Dr. Latricia Aaron MD Attending Provider Active Dr. Brenda Posadas MD Other Provider Active Team Status: Active Member Role Status [facility] Primary Care Provider A ctive Dr. Ananda Coyle MD Emergency Provider Active Dr. Lei Justin , DO Admit Provi dianelys, Referring Provider, Other Provider Active Dr. Alli Brito MD Attending Provider, Other Provide r Active Dr. Brenda Posadas MD Other Provider Active Team Status: Inactive Member Role Status [facility] Primary Care Provider A ctive Dr. Derek Paniagua MD Emergency Provider Active Team Status: Inactive Member Role Status [facility] Primary Care Provider A ctive Dr. Derek Paniagua MD Attending Provider, Emergency Provi dianelys Active Team Status: Active Member Role Status [facility] Primary Care Provider A ctive Dr. Riccardo Hillman , DO Emergency Provider Active Dr. Talisha Boykin MD Admit Provider, Attending Prov ider Active Team Status: Inactive Member Role Status [facility] Primary Care Provider A ctive Dr. Ananda Coyle MD Attending Provider, Emergency Pro vider Active Team Status: Active Member Role Status [facility] Primary Care Provider A ctive Dr. Riccardo Hillman , DO Emergency Provider Active Dr. Talisha Boykin MD Admit Provider, Other Provider Active Dr. Jeremy Alexander MD Attending Provider, Other Provi dianelys Active Team Status: Active Member Role Status [facility] Primary Care Provider A ctive Dr. Riccardo Hillman , DO Emergency Provider Active Dr. Talisha Boykin MD Admit Provider, Other Provider Active Dr. Jeremy Alexander MD Attending Provider, Other Provi dianelys Active Dr. Moody Gallagher , DPM Other Provider Active Team Status: Inactive Member Role Status Dates [facility] Primary Care Provider A ctive Dr. Riccardo Hillman , DO Emergency Provider Active Dr. Talisha Boykin MD Admit Provider, Other Provider Active Dr. Jeremy Alexander MD Attending Provider Active Dr. Moody Gallagher , ALEK Other Provider Active Team Status: Active Member Role Status Dates [facility] Primary Care Provider A ctive Dr. Riccardo Hillman , DO Emergency Provider Active Dr. Talisha Boykin MD Admit Provider, Attending Provider, Other Provider Active Dr. Jeremy Alexander MD Other Provider Active Team Status: Active Member Role Status Dates [facility] Primary Care Provider A ctive Patient Link Program Attending Provider, Referring Pro vider Active Team Status: Inactive Member Role Status Dates [facility] Primary Care Provider A ctive Dr. Ananda Coyle MD Emergency Provider Active [employer] Relationship Specialty Start Date End Date [facility] [address] [place] [address] PCP - General 09/02/23 Zohreh Mckeon NP [facility] [place] [address] Referring Family Medicine 10/18/22 Team Status: Inactive Member Role Status Dates [facility] Primary Care Provider A ctive Dr. Kaylie PEMBERTON MD Attending Provider Active Team Status: Active Member Role Status Dates [facility] Primary Care Provider A ctive Dr. Kaylie PEMBERTON MD Attending Provider Active [employer] Relationship Specialty Start Date End Date [facility] [address] [place] [address] PCP - General 09/02/23 Zohreh Mckeon NP [facility] [place] [address] Referring Family Medicine 10/18/22 Team Status: Active Member Role Status Dates [facility] Primary Care Provider A ctive Dr. Kaylie PEMBERTON MD Attending Provider, Referring Provider Active Team Status: Inactive Member Role Status Dates [facility] Primary Care Provider A ctive Jeremiah Rawls MD Emergency Provider Active [employer] Relationship Specialty Start Date End Date [facility] [address] [facility] [place] [id number] PCP - General 09/02/23 Zohreh Mckeon NP [address] [facility] [place] [address] Referring Family Medicine 10/18/22 [employer] Header Relationship Specialty Start Date End Date [facility] [address] [facility] [place] [address] PCP - General 09/02/23 Zohreh Mckeon NP [address] [facility] [place] [phone] Referring Family Medicine 10/18/22 [employer] Relationship Specialty Start Date End Date [facility] [address] [facility] [place] [address] PCP - General 09/02/23 Zohreh Mckeon NP [address] [facility] [place] [address] Referring Family Medicine 10/18/22 [employer] Relationship Specialty Start Date End Date [facility] [address] [facility] [place] [address] PCP - General 09/02/23 Zohreh Mckeon NP [address] [place] [id number] Referring Family Medicine 10/18/22 [employer] Relationship Specialty Start Date End Date No, [facility] [address] [facility] [place] [address] PCP - General 05/02/22 Team Status: Active Member Role Status Dates Zohreh Mckeon VSC, AEROSPACE ENGINEER-C Primary Care Provider Activ e Team Status: Inactive Member Role Status Dates [facility] Primary Care Provider Active Start: April 252023 [...] Team Status: Active Member Role Status Dates [facility] Primary Care Provider Active Start: April 282023 [...] Team Status: Active Member Role Status Dates [facility] Primary Care Provider Active Start: April 292023 [...] Team Status: Inactive Member Role Status Dates [facility] Primary Care Provider A ctive Start: June [...] Team Status: Active Member Role Status Dates [facility] Primary Care Provider A ctive Start: June [...] Team Status: Active Member Role Status Dates [facility] Primary Care Provider A ctive Start: July [...] Team Status: Active Member Role Status Dates [facility] Primary Care Provider A ctive Start: July [...] Team Status: Active Member Role Status Dates [facility] Primary Care Provider A ctive Start: July [...] Team Status: Inactive Member Role Status Dates [facility] Primary Care Provider A ctive Start: July [...] 2024 End: July 05, 2024 Zohreh MIRANDA, AEROSPACE ENGINEER-C Primary Care Provider Activ e Start: July 05, 2024 End: July 05, 2024 Team Status: Inactive Member Role Status Dates Dr. Nicole Trujillo DO Attending Provider Active S tart: July 06, 2024 End: July 06, 2024 Dr. Nicole Trujillo , Referring Provider Active S tart: July 06, 2024 End: July 06, 2024 Zohreh Mckeon RUTH, AEROSPACE ENGINEER-C Primary Care Provider Activ e Start: July 06, 2024 End: July 06, 2024 Team Status: Inactive Member Role Status Dates Dr. Nicole Trujillo DO Attending Provider Active S tart: July 07, 2024 End: July 07, 2024 Dr. Nicole Trujillo DO Referring Provider Active S tart: July 07, 2024 End: July 07, 2024 Zohreh Terence MIRANDA, AEROSPACE ENGINEER-C Primary Care Provider Activ e Start: July 07, 2024 End: July 07, 2024 Team Status: Inactive Member Role Status Dates Dr. Nicole Trujillo DO Attending Provider Active S tart: July 10, 2024 End: July 10, 2024 Dr. Nicole Trujillo DO Referring Provider Active S tart: July 10, 2024 End: July 10, 2024 Zohreh KINGGideon, AEROSPACE ENGINEER-C Primary Care Provider Activ e Start: July 10, 2024 End: July 10, 2024 Team Status: Inactive Member Role Status Dates Zohreh KINGC, AEROSPACE ENGINEER-C Primary Care Provider Activ e Start: July 11, 2024 End: July 11, 2024 Dr. Nicole Trujillo DO Attending Provider Active S tart: July 11, 2024 End: July 11, 2024 Dr. Nicole Trujillo DO Referring Provider Active S tart: July 11, 2024 End: July 11, 2024 Team Status: Inactive Member Role Status Dates Zohreh KINGC, AEROSPACE ENGINEER-C Primary Care Provider Activ e Start: August 01, 2024 End: August 01, 2024 Dr. Riccardo Hillman DO Attending Provider Active Start: August 01, 2024 End: August 01, 2024 Dr. Riccardo Hillman , Emergency Provider Active Start: August 01, 2024 End: August 01, 2024 Team Status: Active Member Role Status Dates Zohreh Terence MIRANDA, AEROSPACE ENGINEER-C Primary Care Provider Activ e Start: August 26, 2024 Dr. Riccardo Ng MD Attending Provider Active S tart: August 26, 2024 Team Status: Active Member Role Status Dates Zohreh Mckeon RUTH, AEROSPACE ENGINEER-C Primary Care Provider Activ e Start: August 26, 2024 Dr. Vaughn Daugherty DO Emergency Provider Activ e Start: August 26, 2024 Dr. Brenda Posadas MD Admit Provider Active Star t: August 26, 2024 Dr. Brenda Posadas MD Attending Provider Active Start: August 26, 2024 Team Status: Inactive Member Role Status Dates Zohreh MIRANDA, AEROSPACE ENGINEER-C Primary Care Provider Activ e Start: August [...] Active Member Role Status Dates Zohreh MIRANDA, AEROSPACE ENGINEER-C Primary Care Provider Activ e Start: August [...] Active Member Role Status Dates Zohreh MIRANDA, AEROSPACE ENGINEER-C Primary Care Provider Activ e Start: August [...] Active Member Role Status Dates Zohreh MIRANDA, AEROSPACE ENGINEER-C Primary Care Provider Activ e Start: August [...] Active Member Role Status Dates Zohreh MIRANDA, AEROSPACE ENGINEER-C Primary Care Provider Activ e Start: August [...] Active Member Role Status Dates Zohreh MIRANDA, AEROSPACE ENGINEER-C Primary Care Provider Activ e Start: August [...] Member Role Status Dates Zohreh Terence MIRANDA, AEROSPACE ENGINEER-C Primary Care Provider Activ e Start: August [...] Active Member Role Status Dates Zohrehdmitriy MIRANDA, AEROSPACE ENGINEER-C Primary Care Provider Activ e Start: September [...] Active Member Role Status Dates Zohrehdmitriy MIRANDA, AEROSPACE ENGINEER-C Primary Care Provider Activ e Start: September 01, 2024 Dr. Alli Brito MD Attending Provider Active S tart: September 01, 2024 Team Status: Active Member Role Status Dates Zohrehdmitriy KINGC, AEROSPACE ENGINEER-C Primary Care Provider Activ e Start: September [...] Active Member Role Status Dates Zohrehdmitriy KING, AEROSPACE ENGINEER-C Primary Care Provider Activ e Start: August 26, 2024 Dr. Riccardo Ng MD Attending Provider Active S tart: August 26, 2024 Dr. Jeison Abrams , Referring Provider Active Start: August 26, 2024 Team Status: Active Member Role Status Dates Zohreh Terence MIRANDA, AEROSPACE ENGINEER-C Primary Care Provider Activ e Start: August 27, 2024 Dr. Vaughn Daugherty , Emergency Provider Activ e Start: August 27, 2024 Dr. Bernda Posadas MD Admit Provider Active Star t: August 27, 2024 Dr. Brenda Posdaas MD Other Provider Active Star t: August [...] Member Role Status Dates Zohreh Mckeon FERNANDO, AEROSPACE ENGINEER-C Primary Care Provider Activ e Start: September 05, 2024 End: September 05, 2024 Dr. Zack aCrd , Emergency Provider Active Start : September 05, 2024 End: September 05, 2024 Team Status: Active Member Role Status Dates Zohreh Terence KING, AEROSPACE ENGINEER-C Primary Care Provider Activ e Start: September [...] Member Role Status Dates Zohreh Mckeon RUTH, AEROSPACE ENGINEER-C Primary Care Provider Activ e Start: September 05, 2024 End: September 05, 2024 Dr. Zack Card DO Attending Provider Active Start : September 05, 2024 End: September 05, 2024 Dr. Zack Card DO Emergency Provider Active Start : September 05, 2024 End: September 05, 2024 Team Status: Active Member Role Status Dates Zohreh Mckeon RUTH, AEROSPACE ENGINEER-C Primary Care Provider Activ e Start: September [...] Member Role Status Dates Zohreh Terence MIRANDA, AEROSPACE ENGINEER-C Primary Care Provider Activ e Start: September [...] Member Role Status Dates Zohreh Mckeon RUTH, AEROSPACE ENGINEER-C Primary Care Provider Activ e Start: September [...] Active Member Role Status Dates Zohrehdmitriy MIRANDA, AEROSPACE ENGINEER-C Primary Care Provider Activ e Start: September 10, 2024 Dr. Davis Ibarra DO Emergency Provider Active Start: September 10, 2024 Dr. Rosaura Crane MD Admit Provider Active St art: September 10, 2024 Dr. Rosaura Crane MD Other Provider Active St art: September 10, 2024 Dr. Brenda Posdaas MD Attending Provider Active Start: September 10, 2024 Dr. Brenda Posadas MD Other Provider Active Star t: September 10, 2024 Team Status: Active Member Role Status Dates Zohreh MIRANDA, AEROSPACE ENGINEER-C Primary Care Provider Activ e Start: September [...] Active Member Role Status Dates Zohreh MIRANDA, AEROSPACE ENGINEER-C Primary Care Provider Activ e Start: September [...] Active Member Role Status Dates Zohreh KING, AEROSPACE ENGINEER-C Primary Care Provider Activ e Start: September [...] Active Member Role Status Dates Zohreh MIRANDA, AEROSPACE ENGINEER-C Primary Care Provider Activ e Start: September [...] Active Member Role Status Dates Zohreh MIRANDA, AEROSPACE ENGINEER-C Primary Care Provider Activ e Start: September [...] Active Member Role Status Dates Zohreh MIRANDA, AEROSPACE ENGINEER-C Primary Care Provider Activ e Start: September [...] Inactive Member Role Status Dates Zohreh MIRANDA, AEROSPACE ENGINEER-C Primary Care Provider Activ e Start: September [...] Inactive Member Role Status Dates Zohreh MIRANDA, AEROSPACE ENGINEER-C Primary Care Provider Activ e Start: September 21, 2024 End: September 21, 2024 Dr. Riccardo Hillman DO Emergency Provider Active Start: September 21, 2024 End: September 21, 2024 Team Status: Inactive Member Role Status Dates Zohreh MIRANDA, AEROSPACE ENGINEER-C Primary Care Provider Activ e Start: September 21, 2024 End: September 21, 2024 Dr. Riccardo Hillman DO Attending Provider Active Start: September 21, 2024 End: September 21, 2024 Dr. Riccardo Hillman DO Emergency Provider Active Start: September 21, 2024 End: September 21, 2024 Team Status: Inactive Member Role Status Dates Zohreh MIRANDA, AEROSPACE ENGINEER-C Primary Care Provider Activ e Start: September 29, 2024 End: September 29, 2024 Dr. Zack Card , Emergency Provider Active Start : September 29, 2024 End: September 29, 2024 Team Status: Active Member Role/Relationship Status Dates Zohreh KINGC, AEROSPACE ENGINEER-C Primary Care Provider Activ e Team Status: Active Member Role/Relationship Status Dates Zohreh KINGC, AEROSPACE ENGINEER-C Primary Care Provider Activ e Start: August 26, 2024 Dr. Riccardo Ng MD Attending Provider Active S tart: August 26, 2024 Dr. Jeison Abrams DO Referring Provider Active Start: August 26, 2024 Team Status: Inactive Member Role/Relationship Status Dates Zohreh MIRANDA, AEROSPACE ENGINEER-C Primary Care Provider Activ e Start: August [...] Active Member Role/Relationship Status Dates Zohreh KINGC, AEROSPACE ENGINEER-C Primary Care Provider Activ e Start: August [...] Active Member Role/Relationship Status Dates Zohreh Mckeon [facility], AEROSPACE ENGINEER-C Primary Care Provider Activ e Start: August [...] Member Role/Relationship Status Dates Zohreh Mckeon [place], AEROSPACE ENGINEER-C Primary Care Provider Activ e Start: August [...] Active Member Role/Relationship Status Dates Zohreh Mckeon [facility], AEROSPACE ENGINEER-C Primary Care Provider Activ e Start: August [...] Member Role/Relationship Status Dates Zohreh Terence MIRANDA, AEROSPACE ENGINEER-C Primary Care Provider Activ e Start: August [...] Member Role/Relationship Status Dates Zohreh Terence MIRANDA, AEROSPACE ENGINEER-C Primary Care Provider Activ e Start: August [...] Active Member Role/Relationship Status Dates Zohrehdmitriy MIRANDA, AEROSPACE ENGINEER-C Primary Care Provider Activ e Start: September [...] Active Member Role/Relationship Status Dates Zohreh MIRANDA, AEROSPACE ENGINEER-C Primary Care Provider Activ e Start: September 01, 2024 Dr. Alli Brito MD Attending Provider Active S tart: September 01, 2024 Team Status: Active Member Role/Relationship Status Dates Zohreh KING, AEROSPACE ENGINEER-C Primary Care Provider Activ e Start: September [...] Inactive Member Role/Relationship Status Dates Zohreh KING, AEROSPACE ENGINEER-C Primary Care Provider Activ e Start: September 05, 2024 End: September 05, 2024 Dr. Zack Card DO Attending Provider Active Start : September 05, 2024 End: September 05, 2024 Dr. Zack Card DO Emergency Provider Active Start : September 05, 2024 End: September 05, 2024 Team Status: Active Member Role/Relationship Status Dates Zohreh KING, AEROSPACE ENGINEER-C Primary Care Provider Activ e Start: September [...] Active Member Role/Relationship Status Dates Zohreh KING, AEROSPACE ENGINEER-C Primary Care Provider Activ e Start: September [...] Member Role/Relationship Status Dates Zohreh Terence KING, AEROSPACE ENGINEER-C Primary Care Provider Activ e Start: September [...] Inactive Member Role/Relationship Status Dates Zohrehdmitriy MIRANDA, AEROSPACE ENGINEER-C Primary Care Provider Activ e Start: September [...] Active Member Role/Relationship Status Dates Zohrehdmitriy MIRANDA, AEROSPACE ENGINEER-C Primary Care Provider Activ e Start: September [...] Member Role/Relationship Status Dates Zohreh Terence MIRANDA, AEROSPACE ENGINEER-C Primary Care Provider Activ e Start: September [...] Member Role/Relationship Status Dates Zohreh Terence MIRANDA, AEROSPACE ENGINEER-C Primary Care Provider Activ e Start: September [...] Active Member Role/Relationship Status Dates Zohrehdmitriy MIRANDA, AEROSPACE ENGINEER-C Primary Care Provider Activ e Start: September 13, 2024 Dr. Davis Ibarra DO Emergency Provider Active Start: September 13, 2024 Dr. Rosuara Crane MD Admit Provider Active St art: [...] Member Role/Relationship Status Dates Zohreh Terence MIRANDA, AEROSPACE ENGINEER-C Primary Care Provider Activ e Start: September [...] Active Member Role/Relationship Status Dates Zohreh MIRANDA, AEROSPACE ENGINEER-C Primary Care Provider Activ e Start: September [...] Active Member Role/Relationship Status Dates Zohreh MIRANDA, AEROSPACE ENGINEER-C Primary Care Provider Activ e Start: September [...] Inactive Member Role/Relationship Status Dates Zohreh MIRANDA, AEROSPACE ENGINEER-C Primary Care Provider Activ e Start: September 21, 2024 End: September 21, 2024 Dr. Riccardo Hillman DO Attending Provider Active Start: September 21, 2024 End: September 21, 2024 Dr. Riccardo Hillman , Emergency Provider Active Start: September 21, 2024 End: September 21, 2024 Team Status: Inactive Member Role/Relationship Status Dates Zohreh KINGC, AEROSPACE ENGINEER-C Primary Care Provider Activ e Start: September 29, 2024 End: September 29, 2024 Dr. Zack Card DO Attending Provider Active Start : September 29, 2024 End: September 29, 2024 Dr. Zack Card , Emergency Provider Active Start : September 29, 2024 End: September 29, 2024 Team Status: Inactive Member Role/Relationship Status Dates Zohreh KINGC, AEROSPACE ENGINEER-C Primary Care Provider Activ e Start: December 12, 2024 End: December 12, 2024 Dr. Derek Paniagua MD Referring Provider Active Sta rt: December 12, 2024 End: December 12, 2024 Dr. Derek Paniagua MD Emergency Provider Active Sta rt: December 12, 2024 End: December 12, 2024 Team Status: Inactive Member Role/Relationship Status Dates Zohreh Mckeon [place], AEROSPACE ENGINEER-C Primary Care Provider Activ e Start: December [...] Active Member Role/Relationship Status Dates Zohreh KINGC, AEROSPACE ENGINEER-C Primary Care Provider Activ e Start: January 29, 2025 Dr. Martina Martínez DO Emergency Provider Active Start: January 29, 2025 Dr. Latricia Yao DO Admit Provider Active Start: January 29, 2025 Dr. Latricia Yao DO Attending Provider Active Start: January 29, 2025 Team Status: Active Member Role/Relationship Status Dates Zohreh KINGC, AEROSPACE ENGINEER-C Primary Care Provider Activ e Start: January [...] Member Role/Relationship Status Dates Zohreh Mckeon C, AEROSPACE ENGINEER-C Primary Care Provider Activ e Start: January [...] Member Role/Relationship Status Dates Zohreh Terence C, AEROSPACE ENGINEER-C Primary Care Provider Activ e Start: January [...] Inactive Member Role/Relationship Status Dates Zohreh Mckeon [facility], AEROSPACE ENGINEER-C Primary Care Provider Activ e Start: January [...] Active Member Role/Relationship Status Dates Zohreh KINGC, AEROSPACE ENGINEER-C Primary Care Provider Activ e Start: February [...] Active Member Role/Relationship Status Dates Zohreh MIRANDA, AEROSPACE ENGINEER-C Primary Care Provider Activ e Start: February [...] Active Member Role/Relationship Status Dates Zohreh MIRANDA, AEROSPACE ENGINEER-C Primary Care Provider Activ e Start: February [...] Active Member Role/Relationship Status Dates Zohreh MIRANDA, AEROSPACE ENGINEER-C Primary Care Provider Activ e Start: February [...] Active Member Role/Relationship Status Dates Zohreh MIRANDA, AEROSPACE ENGINEER-C Primary Care Provider Activ e Start: February [...] Active Member Role/Relationship Status Dates Zohreh MIRANDA, AEROSPACE ENGINEER-C Primary Care Provider Activ e Start: February [...] Active Member Role/Relationship Status Dates Zohreh MIRANDA, AEROSPACE ENGINEER-C Primary Care Provider Activ e Start: February [...] Active Member Role/Relationship Status Dates Zohreh MIRANDA, AEROSPACE ENGINEER-C Primary Care Provider Activ e Start: February [...] Active Member Role/Relationship Status Dates Zohreh MIRANDA, AEROSPACE ENGINEER-C Primary Care Provider Activ e Start: February [...] Member Role/Relationship Status Dates Zohreh Terence KING, AEROSPACE ENGINEER-C Primary Care Provider Activ e Start: February [...] Active Member Role/Relationship Status Dates Zohrehdmitriy KING, AEROSPACE ENGINEER-C Primary Care Provider Activ e Start: February [...] or prosecute any alcohol or drug abuse patient.[facility] the event this information is protected by the Federal Confidentiality of Alcohol and Drug Abuse Patient Records regulations: The Federal rules restrict any use of the information to criminally investigate or prosecute any alcohol or drug abuse patient.[facility] Hospital[facility] the event this information is protected by the Federal Confidentiality of Alcohol and Drug Abuse Patient Records regulations: The Federal rules restrict any use of the information to criminally investigate or prosecute any alcohol or drug abuse patient.[facility] the event this information is protected by the Federal Confidentiality of Alcohol and Drug Abuse Patient Records regulations: The Federal rules restrict any use of the information to criminally investigate or prosecute any alcohol or drug abuse patient.[facility] Hospital[facility] the event this information is protected by the Federal Confidentiality of Alcohol and Drug Abuse Patient Records regulations: The Federal rules restrict any use of the information to criminally investigate or prosecute any alcohol or drug abuse patient.[facility] Hospital[facility] the event this information is protected by the Federal Confidentiality of Alcohol and Drug Abuse Patient Records regulations: The Federal rules restrict any use of the information to criminally investigate or prosecute any alcohol or drug abuse patient.[facility] HospitalIn the event this information is protected by the Federal Confidentiality of Alcohol and Drug Abuse Patient Records regulations: The Federal rules restrict any use of the information to criminally investigate or prosecute any alcohol or drug abuse patient.[facility] Hospital[facility] the event this information is protected by the Federal Confidentiality of Alcohol and Drug Abuse Patient Records regulations: The Federal rules restrict any use of the information to criminally investigate or prosecute any alcohol or drug abuse patient.[facility] HospitalIn the event this information is protected by the Federal Confidentiality of Alcohol and Drug Abuse Patient Records regulations: The Federal rules restrict any use of the information to criminally investigate or prosecute any alcohol or drug abuse patient.[facility] HospitalIn the event this information is protected by the Federal Confidentiality of Alcohol and Drug Abuse Patient Records regulations: The Federal rules restrict any use of the information to criminally investigate or prosecute any alcohol or drug abuse patient.[facility] Reason for Visit (unrecogniz ed section and content) Reason Comments Appointment Radiology XR Reason Comments Patient Question Abscess Reason Comments Patient Update Reason Comments Contact Center Call Patient Update PHYSICIAN INSTRUCTIONS Reason Comments returned [facility] call Patient Update Reason Comments Orders AG [...] BE BASED ON THE PRIMARY CLINICAL RECORDS. [facility] provides no warranty or guarantee of the accuracy or completeness of information in this document.
--- OUTSIDE RECORDS SUMMARY | 2025-05-19 23:58 | XMS RPT_ITS | CCD ---
Author Organization [facility] Care Team Providers Care Master Tax Advisor Name Role Phone FERCHO OSBORNE Admitting Unavailable DEX HANDY () Attending Unavailable HWIT, JEVON Lozada Consulting Unavailable PROVIDER, ALMA DELIA [...] Provider [phone] Dr. Riccardo Ng Other Provider [facility] Nathaly Lainez Primary Care Pro vider Dr. Nathaly Lainez Primary Care Provider Dr. Nathaly Lainez Referring Provider Cirot MARTIN PA Jevon Attending Provider Dr. Alli Brito Attending Provider MARTIN Montero Attending Provider [phone] Dr. Riccardo Ng Attending Provider Dr. Riccardo Ng Referring Provider [phone] Riccardo Ng Other Provider [facility], [place] Tawanda Primary Care Pro vider Dr. Nathaly Lainez Primary Care Provider Dr. Nathaly Lainez Referring Provider [facility], Nathaly Lainez Referring Provid er MD [...] [phone] Riccardo Ng Other Provider [facility], Nathaly Lainez Primary Care Pro vider MARTIN Montero Referring Provider [facility] [place] Tawanda Referring Provid er MD Jeremiah Rawls Emergency Provider Dr. Jeison Forde Admit Provider Dr. Jeison Forde Referring Provider Dr. Jeison Forde Other Provider Dr. Sabina Rosenberg Attending Provider Dr. Sabina Rosenberg Other Provider Dr. Sanjiv Alcantar Attending Provider MARTIN Mathis Attending Provider MARTIN Mathis Referring Provider Dr. Yvette Hanley Referring Provider [facility] [place] Pro vider Dr. Riccardo Ng Attending Provider Dr. Yvette Hanley Referring Provider MARTIN Mathis Referring Provider Dr. Yvette Hanley Emergency Provider Dr. Sabina Rosenberg Admit Provider Dr. Sabina Rosenberg Attending Provider TerDr. Sabina hammond Other Provider [facility] Care Pro vider Dr. Zack Card Emergency Provider Dr. Brandon Adames Admit Provider Dr. Brandon Adames Attending Provider Dr. Brandon Adames Other Provider [facility] [place] Pro vider Dr. Yvette Hanley Emergency Provider Dr. Sabina Rosenberg Admit Provider Dr. Sabina Rosenberg Attending Provider Dr. Sabina Rosenberg Other Provider Dr. Zack Card Emergency Provider Dr. Brandon Adames Admit Provider Dr. Brandon Adames Attending Provider Dr. Brandon Adames Other Provider [facility], [facility] Referring Provid er Dr. Alli Brito Attending Provider Roof MULTI CRAFT MAINTENANCE TECHNICIAN, MULTI CRAFT MAINTENANCE TECHNICIAN-C Juancarlos Rashid Attending Provider Dr. Lino Sousa Attending Provider [facility] Primary Care Pro vider Dr. Yvette Hanley Emergency Provider Dr. Sabina Rosenberg Admit Provider Dr. Sabina Rosenberg Attending Provider Dr. Sabina Rosenberg Other Provider [facility] Primary Care Pro vider Dr. Sabina Rosenberg Attending Provider Dr. Sabina Rosenberg Other Provider Dr. Ananda Coyle Emergency Provider Dr. Lei Justin Admit Provider Dr. Lei Justin Other Provider Dr. Alli Brito Other Provider Dr. Brenda Posadas Other Provider Dr. Brenda Posadas Attending Provider Dr. Latricia Aaron Attending Provider Unavailable Dr. Latricia Aaron Other Provider Unavailable Dr. Lei Justin Referring Provider [facility], [facility] Primary Care Pro vider Dr. Riccardo Hillman Emergency Provider Dr. Talisha Boykin Admit Provider Korjaycee, Dr. Talisha Landry Other Provider Dr. Jeremy Alexander Attending Provider Dr. Jeremy Alexander Other Provider Dr. Moody Gallagher Other Provider Ashutosh, Dr. Talisha Landry Attending Provider Dr. Jeremy Alexander Attending Provider [facility] Primary Care Pro vider Dr. Ananda [...] Provider Dr. Moody Gallagher Other Provider Terence MULTI CRAFT MAINTENANCE TECHNICIAN, Zohreh Unavailable [facility] Care Provider [facility] Primary Care Pro [facility] Care Provider No, Pcp Primary Care Provider Cadence PEARSON MD, BRITTANEY Sue Primary Care Physician MICHEL HERNANDEZ, BRITTANEY Sue Primary Care Unavailable DARIEL SANCHEZ, DR RAYMUNDO Springer Attending Unavailabl e IBETH ALEJANDRO Consulting Unavailable [facility], [facility] Care Unavailable LASH-RITTER, TATIANA A Admitting Unavailab le LASH-RITTER, TATIANA A Attending Unavailab le [facility], [facility] Care Unavailable MUAKKASSA, FARID ANU Admitting Unavailabl e MUAKKASSA, FARID ANU Attending Unavailabl e DIYA MAY Consulting Unavailable [facility], [facility] Primary Care Pro vider Jeremiah [...] Dr. Nicole Trujillo DO Referring Provider Terence MULTI CRAFT MAINTENANCE TECHNICIAN-CZohreh Primary Care Provider Dr. Riccardo Hillman DO Attending Provider Dr. Riccardo Hillman DO Emergency Provider Dr. Riccardo Ng MD Attending Provider Dr. Vaughn Daugherty DO Emergency Provider Cuauhtemoc HERNANDEZ, Dr. Gutierrez Attending Provider [facility] [place] [facility] Care Pro vider Dr. Nicole Trujillo DO Other Provider Willow SANCHEZ, Dr. Mendes Emergency Provider Berenice HERNANDEZ, Dr. Gu Other Provider Agnieszka HERNANDEZ, Dr. Hooker Attending Provider [facility] Agnieszka HERNANDEZ, Dr. Hooker Other Provider Unavailable [...] HERNANDEZ, Dr. Amish Bashir Other Provider Terence MULTI CRAFT MAINTENANCE TECHNICIAN-C, [facility] Care Provider Cuauhtemoc HERNANDEZ, Dr. Gutierrez Admit [...] Dr. Derek Paniagua MD Emergency Provider Terence MULTI CRAFT MAINTENANCE TECHNICIAN-C, [facility] Provider Siva HERNANDEZ, Dr. Reed Attending Provider Siva HERNANDEZ, Dr. Reed Referring Provider Siva HERNANDEZ, Dr. Reed Emergency Provider Tanya SANCHEZ, Dr. Mack Emergency Provider de Gennaro DO, Dr. Hooker Admit Provider Unavail able de Gennaro DO, Dr. Hooker Attending Provider Unav ailable Terence MULTI CRAFT MAINTENANCE TECHNICIAN-C, [facility] Provider Siva HERNANDEZ, Dr. Reed Attending [...] Provider Dr. Riccardo Shaikh DO Attending Provider Ashutosh HERNANDEZ, Dr. Talisha Landry Other Provider [phone] Ashutosh HERNANDEZ, Dr. Talisha Landry Attending Provider Dr. Riccardo Shaikh DO Other Provider [facility] Unavailabl e Nichelle Mcneil Referring Unavailable Nichelle Mcneil Attending Unavailable [facility] Unavailmir e Derek Paniagua Referring Unavailable Derek Paniagua Attending Unavailable Brenda Posadas Admitting Unavailable [facility] [place] Unavailable Nicole Trujillo Attending Unavailable Brenda Posadas Consulting Unavailable Nichelle Mcneil Consulting Unavailable Lei Justin Admitting Unavailable Lei Justin Consulting Unavailable [facility] Unavailabl e Talisha Boykin Attending Unavailable Latricia Aaron Consulting Unavailable ScottyAbdirizak roland Consulting Unavailable Jeremy Alexander Consulting Unavailable Friend, Jeevan Consulting Unavailable Evelyne Salvador Consulting Unavailable Griselda Huynh Consulting Unavailable Bina Saldana Consulting Unavailable Nichelle Mcneil Consulting Unavailable [facility] Unavailabl e Nichelle Mcneil Attending Unavailable Nichelle Mcneil Referring Unavailable [facility] Unavailabl e Nichelle Mcneil Referring Unavailable Nichelle Mcneil Attending Unavailable Nicole Trujillo Referring Unavailable Nicole Trujillo Attending Unavailable [facility] Unavailabl e Nichelle Mcneil Attending Unavailable [facility] Unavailabl e Nichelle Mcneil Referring Unavailable Zack Card Attending Unavailable [facility] Unavailable Nicole Trujillo Referring Unavailable Nicole Trujillo Attending Unavailable [facility] Unavailabl e Nicole Trujillo Attending Unavailable Nicole Trujillo Referring Unavailable [facility] Unavailabl e Nicole Trujillo Attending Unavailable Nicole Trujillo Referring Unavailable [facility] Unavailabl e Nicole Trujillo Attending Unavailable Nicole Trujillo Referring Unavailable Zack Card Attending Unavailable [facility] Unavailabl e [facility] Unavailabl e Nicole Trujillo Attending Unavailable Nicole Trujillo Referring Unavailable [facility] Unavailmir e Nichelle Mcneil Referring Unavailable Nichelle Mcneil Attending Unavailable [facility] Unavailabl e Nichelle Mcneil Referring Unavailable Nichelle Mcneil Attending Unavailable Lei Justin Attending Unavailable [facility] Unavailmir e Latricia Yao Admitting Unavailable Latricia Yao Consulting Unavailable Nicole Trujillo Consulting Unavailable Lei Justin Consulting Unavailable Lei Justin Attending Unavailable [facility] Unavailmir e Latricia Yao Admitting Unavailable Latricia Yao Consulting Unavailable Nicole Trujillo Consulting Unavailable Lei Justin Consulting Unavailable Talisha Boykin Attending Unavailable Talisha Boykin Consulting Unavailable [facility] [place] Unavailable Nicole Trujillo Consulting Unavailable Nicole Trujillo Admitting Unavailable Talihsa Boykin Attending Unavailable Benjamin Jeremy Consulting Unavailable Rosie Boykina Gris Consulting Unavailable Rosaura Crane Admitting Unavailable Rosaura Crane Consulting Unavailable Latricia Aaron Attending Unavailable Terence Zohreh [facility] UnavailNichelle Hloly Consulting Unavailable Brenda Posadas Consulting Unavailable Amish [...] Attending Unavailable Patriciaam, Talisha Gris Consulting Unavailable [facility] Unavailabl e Abdirizak Fajardo Attending Unavailable Nicole Trujillo Referring Unavailable Nicole rTujillo Attending Unavailable [facility], [facility] Unavailabl e [facility], [facility] UnavailNichelle Holly Referring Unavailable Nichelle Mcneil Attending Unavailable [facility], [facility] Care Unavailable Nicole Trujillo Consulting Unavailable Jenae Trujillohryn Admitting Unavailable Koram, Talisha Gris Attending Unavailable Benjamin, Jeremy Consulting Unavailable [facility], [facility] Unavailmir e Brenda Posadas Consulting Unavailable Brenda Posadas Admitting Unavailable Latricia Aaron Attending Unavailable Riccardo Ng Consulting Unavailable Nicole Trujillo Consulting Unavailable [facility], [facility] UnavailRiccardo Hutchinson Attending Unavailable Riccardo Shaikh Attending Unavailable [facility] UnavailLatricia Terrazas Consulting Unavailable Latricia Yao Admitting Unavailable Nicole Trujillo Consulting Unavailable Lei Justin Consulting Unavailable Koram, Talisha Gris Consulting Unavailable Nicole Trujillo Referring Unavailable Nicole Trujillo Attending Unavailable [facility], [facility] UnavailLei Jamison Referring Unavailable Riccardo Ng Attending Unavailable [facility], [facility] UnavailRiccardo Hutchinson Attending Unavailable [facility] Unavailabl e [facility], [facility] Unavailabl e Alli Brito Attending Unavailable [facility], [facility] Unavailabl [facility], [facility] Referring Unavailable Bina Saldana Attending Unavailable [facility] UnavailRiccardo Bourne Attending Unavailable Jeison Abrams Referring Unavailable Rosaura Crane Admitting Unavailable Rosaura Crane Consulting Unavailable Latricia Aaron Attending Unavailable [facility], [facility] UnavailNichelle Holly Consulting Unavailable Cuauhtemoc Brenda Consulting Unavailable Amish Tariq Consulting Unavailable Latricia Aaron Consulting Unavailable Brenda Posadas Consulting Unavailable [facility] [place] Unavailable Nicole Trujillo Attending Unavailable Brenda Posadas Admitting Unavailable Nicole Trujillo Consulting Unavailable Nichelle Mcneil Consulting Unavailable Nicole Trujillo Attending Unavailable Nicoel Trujillo Attending Unavailable Posadas, Brenda Admitting Unavailable Riccardo Ng Consulting Unavailable [facility] Unavailabl e Posadas, Brenda Consulting Unavailable Nicole Trujillo Consulting Unavailable Riccardo Shaikh Attending Unavailable Riccardo Shaikh Consulting Unavailable Lei Justin Attending Unavailable Brenda Posadas Consulting Unavailable Posadas, Brenda Admitting Unavailable Brenda Posadas Attending Unavailable [facility] UnavailRiccardo Bourne Attending Unavailable Riccardo Ng Referring Unavailable Jeremy Alexander Attending Unavailable Brenda Posadas Attending Unavailable Brenda Posadas Attending Unavailable Rosaura Crane Admitting Unavailable Rosaura Crane Consulting Unavailable [facility] Unavailmir e Cuauhtemoc, Brenda Consulting Unavailable Latricia Aaron Attending Unavailable Latricia Aaron Consulting Unavailable Cuauhtemoc Brenda Admitting Unavailable [facility] [place] Unavailable Brenda Posadas Attending Unavailable Brenda Posadas Consulting Unavailable Rosaura Crane Attending Unavailable Latricia Yao Attending Unavailable Nicole Trujillo Attending Unavailable [facility] UnavailNichelle Holly Referring Unavailable Nichelle Mcneil Attending Unavailable Allergies Allergy Classification Reported Allergen(s) Allergy Type Date of Onset Reaction(s) Facility (20 sources) Latex; Translations: [LATEX] Propensity to adverse reactions to drug (disorder) 1 Itching [facility] Other [facility] Medications Current Medications Medication Drug Class(es) Dates Sig (Normalized) Sig (Original) [id number] 200 actuat albuterol 0.09 mg/actuat metered dose [...] mg PO DAILY August 10, 2022 1:00am [facility] Start: 08-10-2022 Start: 12-09-2017 take 1 tablet [...] 12:00am supplement Start: 12-29-2023 End: 02-14-2024 take 95665 [IU] by mouth every week cholecalciferol (vitamin D3) Discontinued 94961 U PO EVERY WEEK December 29, 2023 [...] 12:00am docusate sodium 50 mg / sennosides, [facility] 8.6 mg oral tablet (20 sources) Start: [...] source for Protocol details. Start: 03-27-2022 Nyamyc 365267 UNIT/GM powder APPLY THREE TIMES DAILY 0 [...] water. 0 04/12/2022 Active polyethylene glycol 3350 91240 mg powder for oral solution (20 sources) [...] th every six hours as needed HYDROcodone-acetaminophen ([place]) 5-325 MG tablet Take 1 tablet by [...] Start: 08-21-2019 take 2 tablets by mo [facility] every four hours as needed oxycodone-acetaminophen 5 [...] 01-29-2023 Start: 03-17-2019 take 1 capsule by [facility] in the morning omeprazole (PriLOSEC) 20 [...] Ischemic cardiomyopathy; Translations: [Atherosclerotic heart disease of [place] coronary artery without angina pectoris] Onset: 8 [...] sources) Long-term current use of anticoagulant; Translations: [terminologist (current) use of anticoagulants] 06-19-2023 Episodic Other [...] and due to atherosclerosis; Translations: [Atherosclerosis of [place] arteries of extremities with rest pain, right [...] Interpretation Reference Range Facility Gl[facility] measurement at [facility] deOrdered By: Riccardo Shaikh on 02-11-2025 Glucose [Mass/Vol] 158 mg/dL High 74-106 [facility] Absolute lymphocyte countOrd ered By: Talisha Boykin on 02-10-2025 Lymphocytes Auto (Unsp spec) [#/Vol] 1.75 10*3/uL 0.83-4.51 [facility] Anion gap in Serum or Plasma Ordered By: Talisha Boykin on 02-10-2025 Anion gap [Moles/Vol] 10 mmol/L 5-15 [facility] Automated lymphocyte count a s percentage of total leukocytesOrdered By: Talisha Boykin on 02-10-2025 Lymphocytes/100 WBC Auto (Unsp spec) 26.3 % 19-41 [facility] BUN/creatinine ratioOrdered By: Talisha Boykin on 02-10-2025 Urea nitrogen/Creatinine [Mass ratio] 32.8 mg/mg High 10-20 [facility] Basophil percentageOrdered B y: Talisha Boykin on 02-10-2025 Basophils/100 WBC (Bld) 0.5 % 0-1 [facility] Carbon dioxide, total [Moles /volume] in Central venous bloodOrdered By: Talisha Boykin on 02-10-2025 CO2 [Moles/Vol] 23.4 mmol/L 21.0-32.0 [facility] Chloride assayOrdered By: Na na Ashutosh on 02-10-2025 Chloride [Moles/Vol] 104 mmol/L 98-108 [facility] Eosinophil percentageOrdered By: Talisha Boykin 02-10-2025 Eosinophils/100 WBC (Bld) 1.1 % 0-5 [facility] Erythrocyte distribution wid th ratioOrdered By: Talisha Boykin on 02-10-2025 Erythrocyte distribution width (RBC) [Ratio] 14.9 % High 11.6-14.6 [facility] Erythrocyte distribution wid th standard deviationOrdered By: Talisha Boykin 02-10-2025 Erythrocyte distribution width (RBC) [Ratio] 46.4 fl High 35.1-43.9 [facility] Glomerular filtration rate ( GFR) estimation/1.73 sq m using serum, plasma, or whole bOrdered By: Talisha Boykin 02-10-2025 GFR/1.73 sq M.predicted among non-blacks MDRD (S/P/Bld) [Vol rate/Area] 93 mL/min/{1.73_m2} >60 [facility] Hematocrit Auto (Bld) [Volum e fraction]Ordered By: Talisha Boykin 02-10-2025 Hematocrit (Bld) [Volume fraction] 30.9 % Low 37-47 [facility] Hemoglobin measurementOrdere d By: Talisha Boykin 02-10-2025 Hemoglobin (Bld) [Mass/Vol] 10.0 g/dL Low 12.0-15.0 [facility] Immature granulocytes/100 WB C Auto (Bld)Ordered By: Talisha Boykin 02-10-2025 Immature granulocytes/100 WBC (Bld) 0.500 % 0.0-0.9 [facility] MCV (mean corpuscular volume ) determinationOrdered By: Talisha Boykin 02-10-2025 MCV (RBC) [Entitic vol] 84.9 fL 81-99 [facility] Mean corpuscular hemoglobin (MCH) determinationOrdered By: Talisha Boykin 02-10-2025 MCH (RBC) [Entitic mass] 27.5 pg 27.0-32.0 [facility] Monocyte percentageOrdered B y: Talishaneville Boykin on 02-10-2025 Monocytes/100 WBC (Bld) 7.2 % 0-10 [facility] Neutrophil percentageOrdered By: Talisha Boykin on 02-10-2025 Neutrophils/100 WBC (Bld) 64.4 % 47-70 [facility] Platelet countOrdered By: Helen Boykin on 02-10-2025 Platelets (Bld) [#/Vol] 220 10*3/uL 150-450 [facility] Potassium measurement (mass/ volume)Ordered By: Talisha Boykin on 02-10-2025 Potassium (Unsp spec) [Mass/Vol] 4.3 mmol/L 3.3-5.1 [facility] RBC Auto (Bld) [#/Vol]Ordere d By: Talisha Boykin on 02-10-2025 RBC (Bld) [#/Vol] 3.64 10*6/uL Low 4.2-5.4 [facility] Serum creatinine measurement (mass/volume)Ordered By: Talisha Boykin on 02-10-2025 Creatinine [Mass/Vol] 0.76 mg/dL 0.70-1.20 [facility] Serum glucose measurement (m ass/volume)Ordered By: Talisha Boykin on 02-10-2025 Glucose [Mass/Vol] 157 mg/dL High 70-99 [facility] Serum or plasma calcium xiomara urement (mass/volume)Ordered By: Talisha Boykin on 02-10-2025 Calcium [Mass/Vol] 8.7 mg/dL 7.6-11.0 [facility] Serum or plasma urea nitroge n measurement (mass/volume)Ordered By: Talisha Boykin on 02-10-2025 Urea nitrogen [Mass/Vol] 25 mg/dL High 4-19 [facility] Sodium levelOrdered By: Talisha Boykin on 02-10-2025 Sodium [Moles/Vol] 138 mmol/L 133-145 [facility] White blood cell (WBC) count Ordered By: Talisha Boykin on 02-10-2025 WBC (Bld) [#/Vol] 6.7 10*3/uL 4.4-11.0 [facility] Basic Metabolic Profile (BMP )on 02-09-2025 BUN/CRE 33.2 RATIO High 10-20 [facility] Comment on above: Performed By: #### L 100.0100, L500.2500 ####[facility] [address] [place], [address] Calcium [Mass/Vol] 9.0 mg/dL Normal 7.6-11.0 [facility] Comment on above: Performed By: #### L 100.0100, L500.2500 ####[facility] [address] [place], [address] Chloride [Moles/Vol] 104 mmol/L Normal 98-108 [facility] Comment on above: Performed By: #### L 100.0100, L500.2500 ####[facility] [address] [place], [address] CO2 [Moles/Vol] 26.5 mmol/L Normal 21.0-32.0 [facility] Comment on above: Performed By: #### L 100.0100, L500.2500 ####[facility] [address] [place], [address] Creatinine [Mass/Vol] 0.70 mg/dL Normal 0.70-1.20 [facility] Comment on above: Performed By: #### L 100.0100, L500.2500 ####[facility] [address] [place], [address] ECRCL 101.09 ml/min Normal 50-250 [facility] Comment on above: Performed By: #### L 100.0100, L500.2500 ####[facility] [address] [place], [address] GAP 9 Normal 5-15 [facility] Comment on above: Performed By: #### L 100.0100, L500.2500 ####[facility] [address] [place], [address] GFR/1.73 sq M.predicted among non-blacks MDRD (S/P/Bld) [Vol rate/Area] 103 mL/min/{1.73_m2} Normal >60 [facility] Comment on above: Result Comment: mL/m in/1.73m2 CKD-EPI Creatinine Equation (2020) Performed By: #### L 100.0100, L500.2500 ####[facility] [address] [place], [address] Glucose [Mass/Vol] 113 mg/dL High 70-99 [facility] Comment on above: Performed By: #### L 100.0100, L500.2500 ####[facility] [address] [place], [address] Potassium [Moles/Vol] 4.4 mmol/L Normal 3.3-5.1 [facility] Comment on above: Result Comment: Hemo lysis present, Results??could be affected.?? Performed By: #### L 100.0100, L500.2500 ####[facility] [address] [place], [address] Sodium [Moles/Vol] 139 mmol/L Normal 133-145 [facility] Comment on above: Performed By: #### L 100.0100, L500.2500 ####[facility] [address] [place], [address] Urea nitrogen [Mass/Vol] 23 mg/dL High 4-19 [facility] Comment on above: Performed By: #### L 100.0100, L500.2500 ####[facility] [address] [place], [address] Bedside Glucoseon 02-09-2025 FINGERSTICK GLU 103 mg/dL Normal 74-106 [facility] Comment on above: Result Comment: TALIA CHAMBERS OF PATIENT CARE PER NURSING PROTOCOL Performed By: #### L 501.080 ####[facility] [address] [place], [address] FINGERSTICK GLU 218 mg/dL High 74-106 [facility] Comment on above: Result Comment: TALIA GEMENT OF PATIENT CARE PER NURSING PROTOCOL Performed By: #### L 501.080 ####[facility] [address] [place], [address] FINGERSTICK GLU 102 mg/dL Normal 74-106 [facility] Comment on above: Result Comment: TALIA GEMENT OF PATIENT CARE PER NURSING PROTOCOL Performed By: #### L 501.080 ####[facility] [address] [place], [address] CBC W/Diff, Automatedon 09-0 8-2025 Absolute Lymph 1.83 X10 3/uL Normal 0.83-4.51 [facility] Comment on above: Performed By: #### L 100.0100, L500.2500 ####[facility] [address] [place], [address] Absolute Neut 3.5 X10 3/uL Normal 2.0-7.7 [facility] Comment on above: Performed By: #### L 100.0100, L500.2500 ####[facility] [address] [place], [address] Basophils/100 WBC (Bld) 0.8 % Normal 0-1 [facility] Comment on above: Performed By: #### L 100.0100, L500.2500 ####[facility] [address] [place], [address] Eosinophils/100 WBC (Bld) 1.3 % Normal 0-5 [facility] Comment on above: Performed By: #### L 100.0100, L500.2500 ####[facility] [address] [place], [address] Erythrocyte distribution width (RBC) [Ratio] 15.0 % High 11.6-14.6 [facility] Comment on above: Performed By: #### L 100.0100, L500.2500 ####[facility] [address] [place], [address] Hematocrit (Bld) [Volume fraction] 34.4 % Low 37-47 [facility] Comment on above: Performed By: #### L 100.0100, L500.2500 ####[facility] [address] [place], [address] Hemoglobin (Bld) [Mass/Vol] 10.8 g/dL Low 12.0-15.0 [facility] Comment on above: Performed By: #### L 100.0100, L500.2500 ####[facility] [address] [place], [address] IG% 0.700 Normal 0.0-0.9 [facility] Comment on above: Result Comment: IG% - Immature Granulocytes (promyelocytes, myelocytes andmetamyelocytes) > 1% indicates that a LEFT SHIFT is Present. Performed By: #### L 100.0100, L500.2500 ####[facility] [address] [place], [address] Lymphocytes/100 WBC (Bld) 30.8 % Normal 19-41 [facility] Comment on above: Performed By: #### L 100.0100, L500.2500 ####[facility] [address] [place], [address] MCH (RBC) [Entitic mass] 27.1 pg Normal 27.0-32.0 [facility] Comment on above: Performed By: #### L 100.0100, L500.2500 ####[facility] [address] [place], [address] MCHC (RBC) [Mass/Vol] 31.4 g/dL Low 32-36 [facility] Comment on above: Performed By: #### L 100.0100, L500.2500 ####[facility] [address] [place], [address] MCV (RBC) [Entitic vol] 86.2 fL Normal 81-99 [facility] Comment on above: Performed By: #### L 100.0100, L500.2500 ####[facility] [address] [place], [address] Monocytes/100 WBC (Bld) 7.7 % Normal 0-10 [facility] Comment on above: Performed By: #### L 100.0100, L500.2500 ####[facility] [address] [place], [address] Neutrophils/100 WBC (Bld) 58.7 % Normal 47-70 [facility] Comment on above: Performed By: #### L 100.0100, L500.2500 ####[facility] [address] [place], [address] Nucleated RBC (Bld) [#/Vol] 0 10*3/uL Normal 0-5 [facility] Comment on above: Performed By: #### L 100.0100, L500.2500 ####[facility] [address] [place], [address] Platelet mean volume (Bld) [Entitic vol] 9.3 fL Normal 6.2-12.0 [facility] Comment on above: Performed By: #### L 100.0100, L500.2500 ####[facility] [address] [place], [address] Platelets (Bld) [#/Vol] 221 10*3/uL Normal 150-450 [facility] Comment on above: Performed By: #### L 100.0100, L500.2500 ####[facility] [address] [place], [address] RBC (Bld) [#/Vol] 3.99 10*6/uL Low 4.2-5.4 [facility] Comment on above: Performed By: #### L 100.0100, L500.2500 ####[facility] [address] [place], [address] RDW SD 47.5 fl High 35.1-43.9 [facility] Comment on above: Performed By: #### L 100.0100, L500.2500 ####[facility] [address] [place], [address] WBC (Bld) [#/Vol] 6.0 10*3/uL Normal 4.4-11.0 [facility] Comment on above: Performed By: #### L 100.0100, L500.2500 ####[facility] [address] [place], [address] Vitamin D,25 Hydroxyon 02-09 Vitamin D 25-OH 13.2 ng/mL Low 30-100 [facility] Comment on above: Result Comment: Charissa min D StatusDeficiency: <20 ng/mL (50nmol/L)Insufficiency: 20-30 ng/mL (50-75 nmol/L)Sufficiency: 30-100 ng/mL (75-250 nmol/L)Toxicity: >100 ng/mL (>250 nmol/L) Performed By: #### L 506.1001 ####[facility] [address] [place], [address] Basic Metabolic Profile (BMP )on 02-08-2025 BUN/CRE 38.6 RATIO High 10-20 [facility] Comment on above: Performed By: #### L 500.2500, L100.0100 ####[facility] [address] [place], [address] Calcium [Mass/Vol] 9.0 mg/dL Normal 7.6-11.0 [facility] Comment on above: Performed By: #### L 500.2500, L100.0100 ####[facility] [address] [place], [address] Chloride [Moles/Vol] 105 mmol/L Normal 98-108 [facility] Comment on above: Performed By: #### L 500.2500, L100.0100 ####[facility] [address] [place], [address] CO2 [Moles/Vol] 24.7 mmol/L Normal 21.0-32.0 [facility] Comment on above: Performed By: #### L 500.2500, L100.0100 ####[facility] [address] [place], [address] Creatinine [Mass/Vol] 0.70 mg/dL Normal 0.70-1.20 [facility] Comment on above: Performed By: #### L 500.2500, L100.0100 ####[facility] [address] [place], [address] ECRCL 101.04 ml/min Normal 50-250 [facility] Comment on above: Performed By: #### L 500.2500, L100.0100 ####[facility] [address] [place], [address] GAP 9 Normal 5-15 [facility] Comment on above: Performed By: #### L 500.2500, L100.0100 ####[facility] [address] [place], [address] GFR/1.73 sq M.predicted among non-blacks MDRD (S/P/Bld) [Vol rate/Area] 103 mL/min/{1.73_m2} Normal >60 [facility] Comment on above: Result Comment: mL/m in/1.73m2 CKD-EPI Creatinine Equation (2020) Performed By: #### L 500.2500, L100.0100 ####[facility] [address] [place], [address] Glucose [Mass/Vol] 102 mg/dL High 70-99 [facility] Comment on above: Performed By: #### L 500.2500, L100.0100 ####[facility] [address] [place], [address] Potassium [Moles/Vol] 4.3 mmol/L Normal 3.3-5.1 [facility] Comment on above: Performed By: #### L 500.2500, L100.0100 ####[facility] [address] [place], [address] Sodium [Moles/Vol] 139 mmol/L Normal 133-145 [facility] Comment on above: Performed By: #### L 500.2500, L100.0100 ####[facility] [address] [place], [address] Urea nitrogen [Mass/Vol] 27 mg/dL High 4-19 [facility] Comment on above: Performed By: #### L 500.2500, L100.0100 ####[facility] [address] [place], [address] Bedside Glucoseon 02-08-2025 FINGERSTICK GLU 172 mg/dL High 74-106 [facility] Comment on above: Result Comment: TALIA GEMENT OF PATIENT CARE PER NURSING PROTOCOL Performed By: #### L 501.080 ####[facility] [address] [place], [address] FINGERSTICK GLU 153 mg/dL High 74-106 [facility] Comment on above: Result Comment: TALIA GEMENT OF PATIENT CARE PER NURSING PROTOCOL Performed By: #### L 501.080 ####[facility] [address] [place], [address] FINGERSTICK GLU 151 mg/dL High 74-106 [facility] Comment on above: Result Comment: TALIA GEMENT OF PATIENT CARE PER NURSING PROTOCOL Performed By: #### L 501.080 ####[facility] [address] [place], [address] FINGERSTICK GLU 107 mg/dL High 74-106 [facility] Comment on above: Result Comment: TALIA GEMENT OF PATIENT CARE PER NURSING PROTOCOL Performed By: #### L 501.080 ####[facility] [address] [place], [address] CBC W/Diff, Automatedon 09-0 7-2024 Absolute Lymph 1.60 X10 3/uL Normal 0.83-4.51 [facility] Comment on above: Performed By: #### L 500.2500, L100.0100 ####[facility] [address] [place], [address] Absolute Neut 3.4 X10 3/uL Normal 2.0-7.7 [facility] Comment on above: Performed By: #### L 500.2500, L100.0100 ####[facility] [address] [place], [address] Basophils/100 WBC (Bld) 0.9 % Normal 0-1 [facility] Comment on above: Performed By: #### L 500.2500, L100.0100 ####[facility] [address] [place], [address] Eosinophils/100 WBC (Bld) 1.2 % Normal 0-5 [facility] Comment on above: Performed By: #### L 500.2500, L100.0100 ####[facility] [address] [place], [address] Erythrocyte distribution width (RBC) [Ratio] 15.0 % High 11.6-14.6 [facility] Comment on above: Performed By: #### L 500.2500, L100.0100 ####[facility] [address] [place], [address] Hematocrit (Bld) [Volume fraction] 33.3 % Low 37-47 [facility] Comment on above: Performed By: #### L 500.2500, L100.0100 ####[facility] [address] [place], [address] Hemoglobin (Bld) [Mass/Vol] 10.6 g/dL Low 12.0-15.0 [facility] Comment on above: Performed By: #### L 500.2500, L100.0100 ####[facility] [address] [place], [address] IG% 0.700 Normal 0.0-0.9 [facility] Comment on above: Result Comment: IG% - Immature Granulocytes (promyelocytes, myelocytes andmetamyelocytes) > 1% indicates that a LEFT SHIFT is Present. Performed By: #### L 500.2500, L100.0100 ####[facility] [address] [place], [address] Lymphocytes/100 WBC (Bld) 28.0 % Normal 19-41 [facility] Comment on above: Performed By: #### L 500.2500, L100.0100 ####[facility] [address] [place], [address] MCH (RBC) [Entitic mass] 27.5 pg Normal 27.0-32.0 [facility] Comment on above: Performed By: #### L 500.2500, L100.0100 ####[facility] [address] [place], [address] MCHC (RBC) [Mass/Vol] 31.8 g/dL Low 32-36 [facility] Comment on above: Performed By: #### L 500.2500, L100.0100 ####[facility] [address] [place], [address] MCV (RBC) [Entitic vol] 86.5 fL Normal 81-99 [facility] Comment on above: Performed By: #### L 500.2500, L100.0100 ####[facility] [address] [place], [address] Monocytes/100 WBC (Bld) 9.3 % Normal 0-10 [facility] Comment on above: Performed By: #### L 500.2500, L100.0100 ####[facility] [address] [place], [address] Neutrophils/100 WBC (Bld) 59.9 % Normal 47-70 [facility] Comment on above: Performed By: #### L 500.2500, L100.0100 ####[facility] [address] [place], [address] Nucleated RBC (Bld) [#/Vol] 0 10*3/uL Normal 0-5 [facility] Comment on above: Performed By: #### L 500.2500, L100.0100 ####[facility] [address] [place], [address] Platelet mean volume (Bld) [Entitic vol] 9.6 fL Normal 6.2-12.0 [facility] Comment on above: Performed By: #### L 500.2500, L100.0100 ####[facility] [address] [place], [address] Platelets (Bld) [#/Vol] 211 10*3/uL Normal 150-450 [facility] Comment on above: Performed By: #### L 500.2500, L100.0100 ####[facility] [address] [place], [address] RBC (Bld) [#/Vol] 3.85 10*6/uL Low 4.2-5.4 [facility] Comment on above: Performed By: #### L 500.2500, L100.0100 ####[facility] [address] [place], [address] RDW SD 47.4 fl High 35.1-43.9 [facility] Comment on above: Performed By: #### L 500.2500, L100.0100 ####[facility] [address] [place], [address] WBC (Bld) [#/Vol] 5.7 10*3/uL Normal 4.4-11.0 [facility] Comment on above: Performed By: #### L 500.2500, L100.0100 ####[facility] [address] [place], [address] Basic Metabolic Profile (BMP )on 02-07-2025 BUN/CRE 24.5 RATIO High 10-20 [facility] Comment on above: Performed By: #### L 100.0100, L500.2500 ####[facility] [address] [place], [address] Calcium [Mass/Vol] 8.6 mg/dL Normal 7.6-11.0 [facility] Comment on above: Performed By: #### L 100.0100, L500.2500 ####[facility] [address] [place], [address] Chloride [Moles/Vol] 104 mmol/L Normal 98-108 [facility] Comment on above: Performed By: #### L 100.0100, L500.2500 ####[facility] [address] [place], [address] CO2 [Moles/Vol] 24.8 mmol/L Normal 21.0-32.0 [facility] Comment on above: Performed By: #### L 100.0100, L500.2500 ####[facility] [address] [place], [address] Creatinine [Mass/Vol] 0.92 mg/dL Normal 0.70-1.20 [facility] Comment on above: Performed By: #### L 100.0100, L500.2500 ####[facility] [address] [place], [address] ECRCL 77.68 ml/min Normal 50-250 [facility] Comment on above: Performed By: #### L 100.0100, L500.2500 ####[facility] [address] [place], [address] GAP 10 Normal 5-15 [facility] Comment on above: Performed By: #### L 100.0100, L500.2500 ####[facility] [address] [place], [address] GFR/1.73 sq M.predicted among non-blacks MDRD (S/P/Bld) [Vol rate/Area] 74 mL/min/{1.73_m2} Normal >60 [facility] Comment on above: Result Comment: mL/m in/1.73m2 CKD-EPI Creatinine Equation (2020) Performed By: #### L 100.0100, L500.2500 ####[facility] [address] [place], [address] Glucose [Mass/Vol] 179 mg/dL High 70-99 [facility] Comment on above: Performed By: #### L 100.0100, L500.2500 ####[facility] [address] [place], [address] Potassium [Moles/Vol] 4.5 mmol/L Normal 3.3-5.1 [facility] Comment on above: Result Comment: Hemo lysis present, Results??could be affected.?? Performed By: #### L 100.0100, L500.2500 ####[facility] [address] [place], [address] Sodium [Moles/Vol] 139 mmol/L Normal 133-145 [facility] Comment on above: Performed By: #### L 100.0100, L500.2500 ####[facility] [address] [place], [address] Urea nitrogen [Mass/Vol] 23 mg/dL High 4-19 [facility] Comment on above: Performed By: #### L 100.0100, L500.2500 ####[facility] [address] [place], [address] Bedside Glucoseon 02-07-2025 FINGERSTICK GLU 122 mg/dL High 74-106 [facility] Comment on above: Result Comment: TALIA GEMENT OF PATIENT CARE PER NURSING PROTOCOL Performed By: #### L 501.080 ####[facility] [address] [place], [address] FINGERSTICK GLU 99 mg/dL Normal 74-106 [facility] Comment on above: Result Comment: TALIA GEMENT OF PATIENT CARE PER NURSING PROTOCOL Performed By: #### L 501.080 ####[facility] [address] [place], [address] FINGERSTICK GLU 160 mg/dL High 74-106 [facility] Comment on above: Result Comment: TALIA GEMENT OF PATIENT CARE PER NURSING PROTOCOL Performed By: #### L 501.080 ####[facility] [address] [place], [address] FINGERSTICK GLU 176 mg/dL High 74-106 [facility] Comment on above: Result Comment: TALIA GEMENT OF PATIENT CARE PER NURSING PROTOCOL Performed By: #### L 501.080 ####[facility] [address] [place], [address] CBC W/Diff, Automatedon 09-0 Absolute Lymph 1.88 X10 3/uL Normal 0.83-4.51 [facility] Comment on above: Performed By: #### L 100.0100, L500.2500 ####[facility] [address] [place], [address] Absolute Neut 2.8 X10 3/uL Normal 2.0-7.7 [facility] Comment on above: Performed By: #### L 100.0100, L500.2500 ####[facility] [address] [place], [address] Basophils/100 WBC (Bld) 0.9 % Normal 0-1 [facility] Comment on above: Performed By: #### L 100.0100, L500.2500 ####[facility] [address] [place], [address] Eosinophils/100 WBC (Bld) 1.3 % Normal 0-5 [facility] Comment on above: Performed By: #### L 100.0100, L500.2500 ####[facility] [address] [place], [address] Erythrocyte distribution width (RBC) [Ratio] 15.0 % High 11.6-14.6 [facility] Comment on above: Performed By: #### L 100.0100, L500.2500 ####[facility] [address] [place], [address] Hematocrit (Bld) [Volume fraction] 33.0 % Low 37-47 [facility] Comment on above: Performed By: #### L 100.0100, L500.2500 ####[facility] [address] [place], [address] Hemoglobin (Bld) [Mass/Vol] 10.4 g/dL Low 12.0-15.0 [facility] Comment on above: Performed By: #### L 100.0100, L500.2500 ####[facility] [address] [place], [address] IG% 0.600 Normal 0.0-0.9 [facility] Comment on above: Result Comment: IG% - Immature Granulocytes (promyelocytes, myelocytes andmetamyelocytes) > 1% indicates that a LEFT SHIFT is Present. Performed By: #### L 100.0100, L500.2500 ####[facility] [address] [place], [address] Lymphocytes/100 WBC (Bld) 35.5 % Normal 19-41 [facility] Comment on above: Performed By: #### L 100.0100, L500.2500 ####[facility] [address] [place], [address] MCH (RBC) [Entitic mass] 27.3 pg Normal 27.0-32.0 [facility] Comment on above: Performed By: #### L 100.0100, L500.2500 ####[facility] [address] [place], [address] MCHC (RBC) [Mass/Vol] 31.5 g/dL Low 32-36 [facility] Comment on above: Performed By: #### L 100.0100, L500.2500 ####[facility] [address] [place], [address] MCV (RBC) [Entitic vol] 86.6 fL Normal 81-99 [facility] Comment on above: Performed By: #### L 100.0100, L500.2500 ####[facility] [address] [place], [address] Monocytes/100 WBC (Bld) 8.5 % Normal 0-10 [facility] Comment on above: Performed By: #### L 100.0100, L500.2500 ####[facility] [address] [place], [address] Neutrophils/100 WBC (Bld) 53.2 % Normal 47-70 [facility] Comment on above: Performed By: #### L 100.0100, L500.2500 ####[facility] [address] [place], [address] Nucleated RBC (Bld) [#/Vol] 0 10*3/uL Normal 0-5 [facility] Comment on above: Performed By: #### L 100.0100, L500.2500 ####[facility] [address] [place], [address] Platelet mean volume (Bld) [Entitic vol] 9.6 fL Normal 6.2-12.0 [facility] Comment on above: Performed By: #### L 100.0100, L500.2500 ####[facility] [address] [place], [address] Platelets (Bld) [#/Vol] 216 10*3/uL Normal 150-450 [facility] Comment on above: Performed By: #### L 100.0100, L500.2500 ####[facility] [address] [place], [address] RBC (Bld) [#/Vol] 3.81 10*6/uL Low 4.2-5.4 [facility] Comment on above: Performed By: #### L 100.0100, L500.2500 ####[facility] [address] [place], [address] RDW SD 47.6 fl High 35.1-43.9 [facility] Comment on above: Performed By: #### L 100.0100, L500.2500 ####[facility] [address] [place], [address] WBC (Bld) [#/Vol] 5.3 10*3/uL Normal 4.4-11.0 [facility] Comment on above: Performed By: #### L 100.0100, L500.2500 ####[facility] [address] [place], [address] Basic Metabolic Profile (BMP )on 02-06-2025 BUN/CRE 32.2 RATIO High 10-20 [facility] Comment on above: Performed By: #### L 500.2500, L100.0100 ####[facility] [address] [place], [address] Calcium [Mass/Vol] 8.5 mg/dL Normal 7.6-11.0 [facility] Comment on above: Performed By: #### L 500.2500, L100.0100 ####[facility] [address] [place], [address] Chloride [Moles/Vol] 103 mmol/L Normal 98-108 [facility] Comment on above: Performed By: #### L 500.2500, L100.0100 ####[facility] [address] [place], [address] CO2 [Moles/Vol] 24.1 mmol/L Normal 21.0-32.0 [facility] Comment on above: Performed By: #### L 500.2500, L100.0100 ####[facility] [address] [place], [address] Creatinine [Mass/Vol] 0.76 mg/dL Normal 0.70-1.20 [facility] Comment on above: Performed By: #### L 500.2500, L100.0100 ####[facility] [address] [place], [address] ECRCL 93.87 ml/min Normal 50-250 [facility] Comment on above: Performed By: #### L 500.2500, L100.0100 ####[facility] [address] [place], [address] GAP 10 Normal 5-15 [facility] Comment on above: Performed By: #### L 500.2500, L100.0100 ####[facility] [address] [place], [address] GFR/1.73 sq M.predicted among non-blacks MDRD (S/P/Bld) [Vol rate/Area] 94 mL/min/{1.73_m2} Normal >60 [facility] Comment on above: Result Comment: mL/m in/1.73m2 CKD-EPI Creatinine Equation (2020) Performed By: #### L 500.2500, L100.0100 ####[facility] [address] [place], [address] Glucose [Mass/Vol] 221 mg/dL High 70-99 [facility] Comment on above: Performed By: #### L 500.2500, L100.0100 ####[facility] [address] [place], [address] Potassium [Moles/Vol] 4.4 mmol/L Normal 3.3-5.1 [facility] Comment on above: Result Comment: Hemo lysis present, Results??could be affected.?? Performed By: #### L 500.2500, L100.0100 ####[facility] [address] [place], [address] Sodium [Moles/Vol] 137 mmol/L Normal 133-145 [facility] Comment on above: Performed By: #### L 500.2500, L100.0100 ####[facility] [address] [place], [address] Urea nitrogen [Mass/Vol] 24 mg/dL High 4-19 [facility] Comment on above: Performed By: #### L 500.2500, L100.0100 ####[facility] [address] [place], [address] Bedside Glucoseon 02-06-2025 FINGERSTICK GLU 181 mg/dL High 74-106 [facility] Comment on above: Result Comment: TALIA TRISH OF PATIENT CARE PER NURSING PROTOCOL Performed By: #### L 501.080 ####[facility] [address] [place], [address] FINGERSTICK GLU 170 mg/dL High 74-106 [facility] Comment on above: Result Comment: TALIA GEMENT OF PATIENT CARE PER NURSING PROTOCOL Performed By: #### L 501.080 ####[facility] [address] [place], [address] FINGERSTICK GLU 159 mg/dL High 74-106 [facility] Comment on above: Result Comment: TALIA GEMENT OF PATIENT CARE PER NURSING PROTOCOL Performed By: #### L 501.080 ####[facility] [address] [place], [address] FINGERSTICK GLU 236 mg/dL High 74-106 [facility] Comment on above: Result Comment: TALIA GEMENT OF PATIENT CARE PER NURSING PROTOCOL Performed By: #### L 501.080 ####[facility] [address] [place], [address] CBC W/Diff, Automatedon 09-0 5-2025 Absolute Lymph 1.58 X10 3/uL Normal 0.83-4.51 [facility] Comment on above: Performed By: #### L 500.2500, L100.0100 ####[facility] [address] [place], [address] Absolute Neut 3.3 X10 3/uL Normal 2.0-7.7 [facility] Comment on above: Performed By: #### L 500.2500, L100.0100 ####[facility] [address] [place], [address] Basophils/100 WBC (Bld) 1.1 % High 0-1 [facility] Comment on above: Performed By: #### L 500.2500, L100.0100 ####[facility] [address] [place], [address] Eosinophils/100 WBC (Bld) 1.6 % Normal 0-5 [facility] Comment on above: Performed By: #### L 500.2500, L100.0100 ####[facility] [address] [place], [address] Erythrocyte distribution width (RBC) [Ratio] 14.7 % High 11.6-14.6 [facility] Comment on above: Performed By: #### L 500.2500, L100.0100 ####[facility] [address] [place], [address] Hematocrit (Bld) [Volume fraction] 32.7 % Low 37-47 [facility] Comment on above: Performed By: #### L 500.2500, L100.0100 ####[facility] [address] [place], [address] Hemoglobin (Bld) [Mass/Vol] 10.4 g/dL Low 12.0-15.0 [facility] Comment on above: Performed By: #### L 500.2500, L100.0100 ####[facility] [address] [place], [address] IG% 0.400 Normal 0.0-0.9 [facility] Comment on above: Result Comment: IG% - Immature Granulocytes (promyelocytes, myelocytes andmetamyelocytes) > 1% indicates that a LEFT SHIFT is Present. Performed By: #### L 500.2500, L100.0100 ####[facility] [address] [place], [address] Lymphocytes/100 WBC (Bld) 28.8 % Normal 19-41 [facility] Comment on above: Performed By: #### L 500.2500, L100.0100 ####[facility] [address] [place], [address] MCH (RBC) [Entitic mass] 27.2 pg Normal 27.0-32.0 [facility] Comment on above: Performed By: #### L 500.2500, L100.0100 ####[facility] [address] [place], [address] MCHC (RBC) [Mass/Vol] 31.8 g/dL Low 32-36 [facility] Comment on above: Performed By: #### L 500.2500, L100.0100 ####[facility] [address] [place], [address] MCV (RBC) [Entitic vol] 85.6 fL Normal 81-99 [facility] Comment on above: Performed By: #### L 500.2500, L100.0100 ####[facility] [address] [place], [address] Monocytes/100 WBC (Bld) 7.8 % Normal 0-10 [facility] Comment on above: Performed By: #### L 500.2500, L100.0100 ####[facility] [address] [place], [address] Neutrophils/100 WBC (Bld) 60.3 % Normal 47-70 [facility] Comment on above: Performed By: #### L 500.2500, L100.0100 ####[facility] [address] [place], [address] Nucleated RBC (Bld) [#/Vol] 0 10*3/uL Normal 0-5 [facility] Comment on above: Performed By: #### L 500.2500, L100.0100 ####[facility] [address] [place], [address] Platelet mean volume (Bld) [Entitic vol] 9.6 fL Normal 6.2-12.0 [facility] Comment on above: Performed By: #### L 500.2500, L100.0100 ####[facility] [address] [place], [address] Platelets (Bld) [#/Vol] 206 10*3/uL Normal 150-450 [facility] Comment on above: Performed By: #### L 500.2500, L100.0100 ####[facility] [address] [place], [address] RBC (Bld) [#/Vol] 3.82 10*6/uL Low 4.2-5.4 [facility] Comment on above: Performed By: #### L 500.2500, L100.0100 ####[facility] [address] [place], [address] RDW SD 46.6 fl High 35.1-43.9 [facility] Comment on above: Performed By: #### L 500.2500, L100.0100 ####[facility] [address] [place], [address] WBC (Bld) [#/Vol] 5.5 10*3/uL Normal 4.4-11.0 [facility] Comment on above: Performed By: #### L 500.2500, L100.0100 ####[facility] [address] [place], [address] Basic Metabolic Profile (BMP )on 02-05-2025 BUN/CRE 30.6 RATIO High 10-20 [facility] Comment on above: Performed By: #### L 500.2500, L100.0100 ####[facility] [address] [place], [address] Calcium [Mass/Vol] 8.5 mg/dL Normal 7.6-11.0 [facility] Comment on above: Performed By: #### L 500.2500, L100.0100 ####[facility] [address] [place], [address] Chloride [Moles/Vol] 105 mmol/L Normal 98-108 [facility] Comment on above: Performed By: #### L 500.2500, L100.0100 ####[facility] [address] [place], [address] CO2 [Moles/Vol] 26.9 mmol/L Normal 21.0-32.0 [facility] Comment on above: Performed By: #### L 500.2500, L100.0100 ####[facility] [address] [place], [address] Creatinine [Mass/Vol] 0.74 mg/dL Normal 0.70-1.20 [facility] Comment on above: Performed By: #### L 500.2500, L100.0100 ####[facility] [address] [place], [address] ECRCL 96.41 ml/min Normal 50-250 [facility] Comment on above: Performed By: #### L 500.2500, L100.0100 ####[facility] [address] [place], [address] GAP 8 Normal 5-15 [facility] Comment on above: Performed By: #### L 500.2500, L100.0100 ####[facility] [address] [place], [address] GFR/1.73 sq M.predicted among non-blacks MDRD (S/P/Bld) [Vol rate/Area] 97 mL/min/{1.73_m2} Normal >60 [facility] Comment on above: Result Comment: mL/m in/1.73m2 CKD-EPI Creatinine Equation (2020) Performed By: #### L 500.2500, L100.0100 ####[facility] [address] [place], [address] Glucose [Mass/Vol] 169 mg/dL High 70-99 [facility] Comment on above: Performed By: #### L 500.2500, L100.0100 ####[facility] [address] [place], [address] Potassium [Moles/Vol] 4.7 mmol/L Normal 3.3-5.1 [facility] Comment on above: Performed By: #### L 500.2500, L100.0100 ####[facility] [address] [place], [address] Sodium [Moles/Vol] 140 mmol/L Normal 133-145 [facility] Comment on above: Performed By: #### L 500.2500, L100.0100 ####[facility] [address] [place], [address] Urea nitrogen [Mass/Vol] 23 mg/dL High 4-19 [facility] Comment on above: Performed By: #### L 500.2500, L100.0100 ####[facility] [address] [place], [address] Bedside Glucoseon 02-05-2025 FINGERSTICK GLU 215 mg/dL High 74-106 [facility] Comment on above: Result Comment: TALIA GEMENT OF PATIENT CARE PER NURSING PROTOCOL Performed By: #### L 501.080 ####[facility] [address] [place], [address] FINGERSTICK GLU 146 mg/dL High 74-106 [facility] Comment on above: Result Comment: TALIA GEMENT OF PATIENT CARE PER NURSING PROTOCOL Performed By: #### L 501.080 ####[facility] [address] [place], [address] FINGERSTICK GLU 109 mg/dL High 74-106 [facility] Comment on above: Result Comment: TALIA GEMENT OF PATIENT CARE PER NURSING PROTOCOL Performed By: #### L 501.080 ####[facility] [address] [place], [address] FINGERSTICK GLU 291 mg/dL High 74-106 [facility] Comment on above: Result Comment: TALIA GEMENT OF PATIENT CARE PER NURSING PROTOCOL Performed By: #### L 501.080 ####[facility] [address] [place], [address] CBC W/Diff, Automatedon 09-0 -2024 Absolute Lymph 1.95 X10 3/uL Normal 0.83-4.51 [facility] Comment on above: Performed By: #### L 500.2500, L100.0100 ####[facility] [address] [place], [address] Absolute Neut 3.3 X10 3/uL Normal 2.0-7.7 [facility] Comment on above: Performed By: #### L 500.2500, L100.0100 ####[facility] [address] [place], [address] Basophils/100 WBC (Bld) 0.7 % Normal 0-1 [facility] Comment on above: Performed By: #### L 500.2500, L100.0100 ####[facility] [address] [place], [address] Eosinophils/100 WBC (Bld) 1.4 % Normal 0-5 [facility] Comment on above: Performed By: #### L 500.2500, L100.0100 ####[facility] [address] [place], [address] Erythrocyte distribution width (RBC) [Ratio] 15.2 % High 11.6-14.6 [facility] Comment on above: Performed By: #### L 500.2500, L100.0100 ####[facility] [address] [place], [address] Hematocrit (Bld) [Volume fraction] 33.8 % Low 37-47 [facility] Comment on above: Performed By: #### L 500.2500, L100.0100 ####[facility] [address] [place], [address] Hemoglobin (Bld) [Mass/Vol] 10.5 g/dL Low 12.0-15.0 [facility] Comment on above: Performed By: #### L 500.2500, L100.0100 ####[facility] [address] [place], [address] IG% 0.500 Normal 0.0-0.9 [facility] Comment on above: Result Comment: IG% - Immature Granulocytes (promyelocytes, myelocytes andmetamyelocytes) > 1% indicates that a LEFT SHIFT is Present. Performed By: #### L 500.2500, L100.0100 ####[facility] [address] [place], [address] Lymphocytes/100 WBC (Bld) 33.6 % Normal 19-41 [facility] Comment on above: Performed By: #### L 500.2500, L100.0100 ####[facility] [address] [place], [address] MCH (RBC) [Entitic mass] 27.1 pg Normal 27.0-32.0 [facility] Comment on above: Performed By: #### L 500.2500, L100.0100 ####[facility] [address] [place], [address] MCHC (RBC) [Mass/Vol] 31.1 g/dL Low 32-36 [facility] Comment on above: Performed By: #### L 500.2500, L100.0100 ####[facility] [address] [place], [address] MCV (RBC) [Entitic vol] 87.3 fL Normal 81-99 [facility] Comment on above: Performed By: #### L 500.2500, L100.0100 ####[facility] [address] [place], [address] Monocytes/100 WBC (Bld) 7.8 % Normal 0-10 [facility] Comment on above: Performed By: #### L 500.2500, L100.0100 ####[facility] [address] [place], [address] Neutrophils/100 WBC (Bld) 56.0 % Normal 47-70 [facility] Comment on above: Performed By: #### L 500.2500, L100.0100 ####[facility] [address] [place], [address] Nucleated RBC (Bld) [#/Vol] 0 10*3/uL Normal 0-5 [facility] Comment on above: Performed By: #### L 500.2500, L100.0100 ####[facility] [address] [place], [address] Platelet mean volume (Bld) [Entitic vol] 9.9 fL Normal 6.2-12.0 [facility] Comment on above: Performed By: #### L 500.2500, L100.0100 ####[facility] [address] [place], [address] Platelets (Bld) [#/Vol] 206 10*3/uL Normal 150-450 [facility] Comment on above: Performed By: #### L 500.2500, L100.0100 ####[facility] [address] [place], [address] RBC (Bld) [#/Vol] 3.87 10*6/uL Low 4.2-5.4 [facility] Comment on above: Performed By: #### L 500.2500, L100.0100 ####[facility] [address] [place], [address] RDW SD 48.6 fl High 35.1-43.9 [facility] Comment on above: Performed By: #### L 500.2500, L100.0100 ####[facility] [address] [place], [address] WBC (Bld) [#/Vol] 5.8 10*3/uL Normal 4.4-11.0 [facility] Comment on above: Performed By: #### L 500.2500, L100.0100 ####[facility] [address] [place], [address] Basic Metabolic Profile (BMP )on 02-04-2025 BUN/CRE 34.9 RATIO High 10-20 [facility] Comment on above: Performed By: #### L 100.0100, L500.2500 ####[facility] [address] [place], [address] Calcium [Mass/Vol] 8.7 mg/dL Normal 7.6-11.0 [facility] Comment on above: Performed By: #### L 100.0100, L500.2500 ####[facility] [address] [place], [address] Chloride [Moles/Vol] 106 mmol/L Normal 98-108 [facility] Comment on above: Performed By: #### L 100.0100, L500.2500 ####[facility] [address] [place], [address] CO2 [Moles/Vol] 25.4 mmol/L Normal 21.0-32.0 [facility] Comment on above: Performed By: #### L 100.0100, L500.2500 ####[facility] [address] [place], [address] Creatinine [Mass/Vol] 0.87 mg/dL Normal 0.70-1.20 [facility] Comment on above: Performed By: #### L 100.0100, L500.2500 ####[facility] [address] [place], [address] ECRCL 80.49 ml/min Normal 50-250 [facility] Comment on above: Performed By: #### L 100.0100, L500.2500 ####[facility] [address] [place], [address] GAP 7 Normal 5-15 [facility] Comment on above: Performed By: #### L 100.0100, L500.2500 ####[facility] [address] [place], [address] GFR/1.73 sq M.predicted among non-blacks MDRD (S/P/Bld) [Vol rate/Area] 79 mL/min/{1.73_m2} Normal >60 [facility] Comment on above: Result Comment: mL/m in/1.73m2 CKD-EPI Creatinine Equation (2020) Performed By: #### L 100.0100, L500.2500 ####[facility] [address] [place], [address] Glucose [Mass/Vol] 160 mg/dL High 70-99 [facility] Comment on above: Performed By: #### L 100.0100, L500.2500 ####[facility] [address] [place], [address] Potassium [Moles/Vol] 5.2 mmol/L High 3.3-5.1 [facility] Comment on above: Performed By: #### L 100.0100, L500.2500 ####[facility] [address] [place], [address] Sodium [Moles/Vol] 139 mmol/L Normal 133-145 [facility] Comment on above: Performed By: #### L 100.0100, L500.2500 ####[facility] [address] [place], [address] Urea nitrogen [Mass/Vol] 31 mg/dL High 4-19 [facility] Comment on above: Performed By: #### L 100.0100, L500.2500 ####[facility] [address] [place], [address] Bedside Glucoseon 02-04-2025 FINGERSTICK GLU 151 mg/dL High 74-106 [facility] Comment on above: Result Comment: TALIA GEMENT OF PATIENT CARE PER NURSING PROTOCOL Performed By: #### L 501.080 ####[facility] [address] [place], [address] FINGERSTICK GLU 179 mg/dL High 74-106 [facility] Comment on above: Result Comment: TALIA GEMENT OF PATIENT CARE PER NURSING PROTOCOL Performed By: #### L 501.080 ####[facility] [address] [place], [address] FINGERSTICK GLU 123 mg/dL High -106 [facility] Comment on above: Result Comment: TALIA GEMENT OF PATIENT CARE PER NURSING PROTOCOL Performed By: #### L 501.080 ####[facility] [address] [place], [address] FINGERSTICK GLU 301 mg/dL High [facility]106 [facility] Comment on above: Result Comment: TALIA GEMENT OF PATIENT CARE PER NURSING PROTOCOL Performed By: #### L 501.080 ####[facility] [address] [place], [address] CBC W/Diff, Automatedon Absolute Lymph 1.89 X10 3/uL Normal 0.83-4.51 [facility] Comment on above: Performed By: #### L 100.0100, L500.2500 ####[facility] [address] [place], [address] Absolute Neut 4.5 X10 3/uL Normal 2.0-7.7 [facility] Comment on above: Performed By: #### L 100.0100, L500.2500 ####[facility] [address] [place], [address] Basophils/100 WBC (Bld) 0.7 % Normal 0-1 [facility] Comment on above: Performed By: #### L 100.0100, L500.2500 ####[facility] [address] [place], [address] Eosinophils/100 WBC (Bld) 1.4 % Normal 0-5 [facility] Comment on above: Performed By: #### L 100.0100, L500.2500 ####[facility] [address] [place], [address] Erythrocyte distribution width (RBC) [Ratio] 15.1 % High 11.6-14.6 [facility] Comment on above: Performed By: #### L 100.0100, L500.2500 ####[facility] [address] [place], [address] Hematocrit (Bld) [Volume fraction] 33.7 % Low 37-47 [facility] Comment on above: Performed By: #### L 100.0100, L500.2500 ####[facility] [address] [place], [address] Hemoglobin (Bld) [Mass/Vol] 10.5 g/dL Low 12.0-15.0 [facility] Comment on above: Performed By: #### L 100.0100, L500.2500 ####[facility] [address] [place], [address] IG% 0.300 Normal 0.0-0.9 [facility] Comment on above: Result Comment: IG% - Immature Granulocytes (promyelocytes, myelocytes andmetamyelocytes) > 1% indicates that a LEFT SHIFT is Present. Performed By: #### L 100.0100, L500.2500 ####[facility] [address] [place], [address] Lymphocytes/100 WBC (Bld) 26.4 % Normal 19-41 [facility] Comment on above: Performed By: #### L 100.0100, L500.2500 ####[facility] [address] [place], [address] MCH (RBC) [Entitic mass] 27.0 pg Normal 27.0-32.0 [facility] Comment on above: Performed By: #### L 100.0100, L500.2500 ####[facility] [address] [place], [address] MCHC (RBC) [Mass/Vol] 31.2 g/dL Low 32-36 [facility] Comment on above: Performed By: #### L 100.0100, L500.2500 ####[facility] [address] [place], [address] MCV (RBC) [Entitic vol] 86.6 fL Normal 81-99 [facility] Comment on above: Performed By: #### L 100.0100, L500.2500 ####[facility] [address] [place], [address] Monocytes/100 WBC (Bld) 8.5 % Normal 0-10 [facility] Comment on above: Performed By: #### L 100.0100, L500.2500 ####[facility] [address] [place], [address] Neutrophils/100 WBC (Bld) 62.7 % Normal 47-70 [facility] Comment on above: Performed By: #### L 100.0100, L500.2500 ####[facility] [address] [place], [address] Nucleated RBC (Bld) [#/Vol] 0 10*3/uL Normal 0-5 [facility] Comment on above: Performed By: #### L 100.0100, L500.2500 ####[facility] [address] [place], [address] Platelet mean volume (Bld) [Entitic vol] 9.5 fL Normal 6.2-12.0 [facility] Comment on above: Performed By: #### L 100.0100, L500.2500 ####[facility] [address] [place], [address] Platelets (Bld) [#/Vol] 194 10*3/uL Normal 150-450 [facility] Comment on above: Performed By: #### L 100.0100, L500.2500 ####[facility] [address] [place], [address] RBC (Bld) [#/Vol] 3.89 10*6/uL Low 4.2-5.4 [facility] Comment on above: Performed By: #### L 100.0100, L500.2500 ####[facility] [address] [place], [address] RDW SD 48.1 fl High 35.1-43.9 [facility] Comment on above: Performed By: #### L 100.0100, L500.2500 ####[facility] [address] [place], [address] WBC (Bld) [#/Vol] 7.2 10*3/uL Normal 4.4-11.0 [facility] Comment on above: Performed By: #### L 100.0100, L500.2500 ####[facility] [address] [place], [address] Basic Metabolic Profile (BMP )on 02-03-2025 BUN/CRE 32.2 RATIO High 10-20 [facility] Comment on above: Performed By: #### L 500.2500, L100.0100 ####[facility] [address] [place], [address] Calcium [Mass/Vol] 8.5 mg/dL Normal 7.6-11.0 [facility] Comment on above: Performed By: #### L 500.2500, L100.0100 ####[facility] [address] [place], [address] Chloride [Moles/Vol] 107 mmol/L Normal 98-108 [facility] Comment on above: Performed By: #### L 500.2500, L100.0100 ####[facility] [address] [place], [address] CO2 [Moles/Vol] 22.1 mmol/L Normal 21.0-32.0 [facility] Comment on above: Performed By: #### L 500.2500, L100.0100 ####[facility] [address] [place], [address] Creatinine [Mass/Vol] 0.92 mg/dL Normal 0.70-1.20 [facility] Comment on above: Performed By: #### L 500.2500, L100.0100 ####[facility] [address] [place], [address] ECRCL 76.12 ml/min Normal 50-250 [facility] Comment on above: Performed By: #### L 500.2500, L100.0100 ####[facility] [address] [place], [address] GAP 7 Normal 5-15 [facility] Comment on above: Performed By: #### L 500.2500, L100.0100 ####[facility] [address] [place], [address] GFR/1.73 sq M.predicted among non-blacks MDRD (S/P/Bld) [Vol rate/Area] 74 mL/min/{1.73_m2} Normal >60 [facility] Comment on above: Result Comment: mL/m in/1.73m2 CKD-EPI Creatinine Equation (2020) Performed By: #### L 500.2500, L100.0100 ####[facility] [address] [place], [address] Glucose [Mass/Vol] 119 mg/dL High 70-99 [facility] Comment on above: Performed By: #### L 500.2500, L100.0100 ####[facility] [address] [place], [address] Potassium [Moles/Vol] 5.2 mmol/L High 3.3-5.1 [facility] Comment on above: Result Comment: Hemo lysis present, Results??could be affected.?? Performed By: #### L 500.2500, L100.0100 ####[facility] [address] [place], [address] Sodium [Moles/Vol] 136 mmol/L Normal 133-145 [facility] Comment on above: Performed By: #### L 500.2500, L100.0100 ####[facility] [address] [place], [address] Urea nitrogen [Mass/Vol] 30 mg/dL High 4-19 [facility] Comment on above: Performed By: #### L 500.2500, L100.0100 ####[facility] [address] [place], [address] Bedside Glucoseon 02-03-2025 FINGERSTICK GLU 288 mg/dL High 74-106 [facility] Comment on above: Result Comment: TALIA GEMENT OF PATIENT CARE PER NURSING PROTOCOL Performed By: #### L 501.080 ####[facility] [address] [place], [address] FINGERSTICK GLU 172 mg/dL High 74-106 [facility] Comment on above: Result Comment: TALIA GEMENT OF PATIENT CARE PER NURSING PROTOCOL Performed By: #### L 501.080 ####[facility] [address] [place], [address] FINGERSTICK GLU 225 mg/dL High 74-106 [facility] Comment on above: Result Comment: TALIA GEMENT OF PATIENT CARE PER NURSING PROTOCOL Performed By: #### L 501.080 ####[facility] [address] [place], [address] FINGERSTICK GLU 159 mg/dL High 74-106 [facility] Comment on above: Result Comment: TALIA GEMENT OF PATIENT CARE PER NURSING PROTOCOL Performed By: #### L 501.080 ####[facility] [address] [place], [address] CBC W/Diff, Automatedon 09-0 2-2024 Absolute Lymph 1.87 X10 3/uL Normal 0.83-4.51 [facility] Comment on above: Performed By: #### L 500.2500, L100.0100 ####[facility] [address] [place], [address] Absolute Neut 3.9 X10 3/uL Normal 2.0-7.7 [facility] Comment on above: Performed By: #### L 500.2500, L100.0100 ####[facility] [address] [place], [address] Basophils/100 WBC (Bld) 0.6 % Normal 0-1 [facility] Comment on above: Performed By: #### L 500.2500, L100.0100 ####[facility] [address] [place], [address] Eosinophils/100 WBC (Bld) 1.4 % Normal 0-5 [facility] Comment on above: Performed By: #### L 500.2500, L100.0100 ####[facility] [address] [place], [address] Erythrocyte distribution width (RBC) [Ratio] 15.2 % High 11.6-14.6 [facility] Comment on above: Performed By: #### L 500.2500, L100.0100 ####[facility] [address] [place], [address] Hematocrit (Bld) [Volume fraction] 34.0 % Low 37-47 [facility] Comment on above: Performed By: #### L 500.2500, L100.0100 ####[facility] [address] [place], [address] Hemoglobin (Bld) [Mass/Vol] 10.8 g/dL Low 12.0-15.0 [facility] Comment on above: Performed By: #### L 500.2500, L100.0100 ####[facility] [address] [place], [address] IG% 0.500 Normal 0.0-0.9 [facility] Comment on above: Result Comment: IG% - Immature Granulocytes (promyelocytes, myelocytes andmetamyelocytes) > 1% indicates that a LEFT SHIFT is Present. Performed By: #### L 500.2500, L100.0100 ####[facility] [address] [place], [address] Lymphocytes/100 WBC (Bld) 29.2 % Normal 19-41 [facility] Comment on above: Performed By: #### L 500.2500, L100.0100 ####[facility] [address] [place], [address] MCH (RBC) [Entitic mass] 27.8 pg Normal 27.0-32.0 [facility] Comment on above: Performed By: #### L 500.2500, L100.0100 ####[facility] [address] [place], [address] MCHC (RBC) [Mass/Vol] 31.8 g/dL Low 32-36 [facility] Comment on above: Performed By: #### L 500.2500, L100.0100 ####[facility] [address] [place], [address] MCV (RBC) [Entitic vol] 87.6 fL Normal 81-99 [facility] Comment on above: Performed By: #### L 500.2500, L100.0100 ####[facility] [address] [place], [address] Monocytes/100 WBC (Bld) 7.8 % Normal 0-10 [facility] Comment on above: Performed By: #### L 500.2500, L100.0100 ####[facility] [address] [place], [address] Neutrophils/100 WBC (Bld) 60.5 % Normal 47-70 [facility] Comment on above: Performed By: #### L 500.2500, L100.0100 ####[facility] [address] [place], [address] Nucleated RBC (Bld) [#/Vol] 0 10*3/uL Normal 0-5 [facility] Comment on above: Performed By: #### L 500.2500, L100.0100 ####[facility] [address] [place], [address] Platelet mean volume (Bld) [Entitic vol] 10.3 fL Normal 6.2-12.0 [facility] Comment on above: Performed By: #### L 500.2500, L100.0100 ####[facility] [address] [place], [address] Platelets (Bld) [#/Vol] 188 10*3/uL Normal 150-450 [facility] Comment on above: Performed By: #### L 500.2500, L100.0100 ####[facility] [address] [place], [address] RBC (Bld) [#/Vol] 3.88 10*6/uL Low 4.2-5.4 [facility] Comment on above: Performed By: #### L 500.2500, L100.0100 ####[facility] [address] [place], [address] RDW SD 48.6 fl High 35.1-43.9 [facility] Comment on above: Performed By: #### L 500.2500, L100.0100 ####[facility] [address] [place], [address] WBC (Bld) [#/Vol] 6.4 10*3/uL Normal 4.4-11.0 [facility] Comment on above: Performed By: #### L 500.2500, L100.0100 ####[facility] [address] [place], [address] Basic Metabolic Profile (BMP )on 02-02-2025 BUN/CRE 29.0 RATIO High 10-20 [facility] Comment on above: Performed By: #### L 500.2500, L100.0500 ####[facility] [address] [place], [address] Calcium [Mass/Vol] 8.4 mg/dL Normal 7.6-11.0 [facility] Comment on above: Performed By: #### L 500.2500, L100.0500 ####[facility] [address] [place], [address] Chloride [Moles/Vol] 107 mmol/L Normal 98-108 [facility] Comment on above: Performed By: #### L 500.2500, L100.0500 ####[facility] [address] [place], [address] CO2 [Moles/Vol] 20.3 mmol/L Low 21.0-32.0 [facility] Comment on above: Performed By: #### L 500.2500, L100.0500 ####[facility] [address] [place], [address] Creatinine [Mass/Vol] 0.86 mg/dL Normal 0.70-1.20 [facility] Comment on above: Performed By: #### L 500.2500, L100.0500 ####[facility] [address] [place], [address] ECRCL 81.38 ml/min Normal 50-250 [facility] Comment on above: Performed By: #### L 500.2500, L100.0500 ####[facility] [address] [place], [address] GAP 9 Normal 5-15 [facility] Comment on above: Performed By: #### L 500.2500, L100.0500 ####[facility] [address] [place], [address] GFR/1.73 sq M.predicted among non-blacks MDRD (S/P/Bld) [Vol rate/Area] 81 mL/min/{1.73_m2} Normal >60 [facility] Comment on above: Result Comment: mL/m in/1.73m2 CKD-EPI Creatinine Equation (2020) Performed By: #### L 500.2500, L100.0500 ####[facility] [address] [place], [address] Glucose [Mass/Vol] 116 mg/dL High 70-99 [facility] Comment on above: Performed By: #### L 500.2500, L100.0500 ####[facility] [address] [place], [address] Potassium [Moles/Vol] 5.0 mmol/L Normal 3.3-5.1 [facility] Comment on above: Performed By: #### L 500.2500, L100.0500 ####[facility] [address] [place], [address] Sodium [Moles/Vol] 137 mmol/L Normal 133-145 [facility] Comment on above: Performed By: #### L 500.2500, L100.0500 ####[facility] [address] [place], [address] Urea nitrogen [Mass/Vol] 25 mg/dL High 4-19 [facility] Comment on above: Performed By: #### L 500.2500, L100.0500 ####[facility] [address] [place], [address] Bedside Glucoseon 02-02-2025 FINGERSTICK GLU 127 mg/dL High 74-106 [facility] Comment on above: Result Comment: TALIA GEMENT OF PATIENT CARE PER NURSING PROTOCOL Performed By: #### L 501.080 ####[facility] [address] [place], [address] FINGERSTICK GLU 190 mg/dL High 74-106 [facility] Comment on above: Result Comment: TALIA GEMENT OF PATIENT CARE PER NURSING PROTOCOL Performed By: #### L 501.080 ####[facility] [address] [place], [address] FINGERSTICK GLU 206 mg/dL High 74-106 [facility] Comment on above: Result Comment: TALIA GEMENT OF PATIENT CARE PER NURSING PROTOCOL Performed By: #### L 501.080 ####[facility] [address] [place], [address] FINGERSTICK GLU 121 mg/dL High 74-106 [facility] Comment on above: Result Comment: TALIA GEMENT OF PATIENT CARE PER NURSING PROTOCOL Performed By: #### L 501.080 ####[facility] [address] [place], [address] FINGERSTICK GLU 120 mg/dL High 74-106 [facility] Comment on above: Result Comment: TALIA GEMENT OF PATIENT CARE PER NURSING PROTOCOL Performed By: #### L 501.080 ####[facility] [address] [place], [address] CBC-Complete Blood Cnt No Di rachael 02-02-2025 Erythrocyte distribution width (RBC) [Ratio] 15.0 % High 11.6-14.6 [facility] Comment on above: Performed By: #### L 500.2500, L100.0500 ####[facility] [address] [place], [address] Hematocrit (Bld) [Volume fraction] 33.3 % Low 37-47 [facility] Comment on above: Performed By: #### L 500.2500, L100.0500 ####[facility] [address] [place], [address] Hemoglobin (Bld) [Mass/Vol] 10.6 g/dL Low 12.0-15.0 [facility] Comment on above: Performed By: #### L 500.2500, L100.0500 ####[facility] [address] [place], [address] MCH (RBC) [Entitic mass] 27.2 pg Normal 27.0-32.0 [facility] Comment on above: Performed By: #### L 500.2500, L100.0500 ####[facility] [address] [place], [address] MCHC (RBC) [Mass/Vol] 31.8 g/dL Low 32-36 [facility] Comment on above: Performed By: #### L 500.2500, L100.0500 ####[facility] [address] [place], [address] MCV (RBC) [Entitic vol] 85.4 fL Normal 81-99 [facility] Comment on above: Performed By: #### L 500.2500, L100.0500 ####[facility] [address] [place], [address] Platelet mean volume (Bld) [Entitic vol] 9.6 fL Normal 6.2-12.0 [facility] Comment on above: Performed By: #### L 500.2500, L100.0500 ####[facility] [address] [place], [address] Platelets (Bld) [#/Vol] 189 10*3/uL Normal 150-450 [facility] Comment on above: Performed By: #### L 500.2500, L100.0500 ####[facility] [address] [place], [address] RBC (Bld) [#/Vol] 3.90 10*6/uL Low 4.2-5.4 [facility] Comment on above: Performed By: #### L 500.2500, L100.0500 ####[facility] [address] [place], [address] RDW SD 46.7 fl High 35.1-43.9 [facility] Comment on above: Performed By: #### L 500.2500, L100.0500 ####[facility] [address] [place], [address] WBC (Bld) [#/Vol] 5.5 10*3/uL Normal 4.4-11.0 [facility] Comment on above: Performed By: #### L 500.2500, L100.0500 ####[facility] [address] [place], [address] Bedside Glucoseon 02-01-2025 FINGERSTICK GLU 158 mg/dL High 74-106 [facility] Comment on above: Result Comment: TALIA GEMENT OF PATIENT CARE PER NURSING PROTOCOL Performed By: #### L 501.080 ####[facility] [address] [place], [address] FINGERSTICK GLU 179 mg/dL High 74-106 [facility] Comment on above: Result Comment: TALIA GEMENT OF PATIENT CARE PER NURSING PROTOCOL Performed By: #### L 501.080 ####[facility] [address] [place], [address] FINGERSTICK GLU 203 mg/dL High 74-106 [facility] Comment on above: Result Comment: TALIA GEMENT OF PATIENT CARE PER NURSING PROTOCOL Performed By: #### L 501.080 ####[facility] [address] [place], [address] FINGERSTICK GLU 172 mg/dL High 74-106 [facility] Comment on above: Result Comment: TALIA GEMENT OF PATIENT CARE PER NURSING PROTOCOL Performed By: #### L 501.080 ####[facility] [address] [place], [address] Amphetamine detection with 1 000 ng/mL as cutoffOrdered By: Latricia Burdick on 01-31-2025 Amphetamines Screen method >1000 ng/mL Ql (U) Negative < 200 ng/mL [facility] Basic Metabolic Profile (BMP )on 01-31-2025 BUN/CRE 21.4 RATIO High 10-20 [facility] Comment on above: Performed By: #### L 501.2300, L501.5200, L500.2500 ####[facility] [address] [place], [address] Calcium [Mass/Vol] 8.8 mg/dL Normal 7.6-11.0 [facility] Comment on above: Performed By: #### L 501.2300, L501.5200, L500.2500 ####[facility] [address] [place], [address] Chloride [Moles/Vol] 103 mmol/L Normal 98-108 [facility] Comment on above: Performed By: #### L 501.2300, L501.5200, L500.2500 ####[facility] [address] [place], [address] CO2 [Moles/Vol] 23.9 mmol/L Normal 21.0-32.0 [facility] Comment on above: Performed By: #### L 501.2300, L501.5200, L500.2500 ####[facility] [address] [place], [address] Creatinine [Mass/Vol] 0.72 mg/dL Normal 0.70-1.20 [facility] Comment on above: Performed By: #### L 501.2300, L501.5200, L500.2500 ####[facility] [address] [place], [address] ECRCL 96.75 ml/min Normal 50-250 [facility] Comment on above: Performed By: #### L 501.2300, L501.5200, L500.2500 ####[facility] [address] [place], [address] GAP 7 Normal 5-15 [facility] Comment on above: Performed By: #### L 501.2300, L501.5200, L500.2500 ####[facility] [address] [place], [address] GFR/1.73 sq M.predicted among non-blacks MDRD (S/P/Bld) [Vol rate/Area] 101 mL/min/{1.73_m2} Normal >60 [facility] Comment on above: Result Comment: mL/m in/1.73m2 CKD-EPI Creatinine Equation (2020) Performed By: #### L 501.2300, L501.5200, L500.2500 ####[facility] [address] [place], [address] Glucose [Mass/Vol] 132 mg/dL High 70-99 [facility] Comment on above: Performed By: #### L 501.2300, L501.5200, L500.2500 ####[facility] [address] [place], [address] Potassium [Moles/Vol] 5.0 mmol/L Normal 3.3-5.1 [facility] Comment on above: Performed By: #### L 501.2300, L501.5200, L500.2500 ####[facility] [address] [place], [address] Sodium [Moles/Vol] 133 mmol/L Normal 133-145 [facility] Comment on above: Performed By: #### L 501.2300, L501.5200, L500.2500 ####[facility] [address] [place], [address] Urea nitrogen [Mass/Vol] 15 mg/dL Normal 4-19 [facility] Comment on above: Performed By: #### L 501.2300, L501.5200, L500.2500 ####[facility] [address] [place], [address] Bedside Glucoseon 01-31-2025 FINGERSTICK GLU 164 mg/dL High 74-106 [facility] Comment on above: Result Comment: TALIA GEMENT OF PATIENT CARE PER NURSING PROTOCOL Performed By: #### L 501.080 ####[facility] [address] [place], [address] FINGERSTICK GLU 165 mg/dL High 74-106 [facility] Comment on above: Result Comment: TALIA GEMENT OF PATIENT CARE PER NURSING PROTOCOL Performed By: #### L 501.080 ####[facility] [address] [place], [address] FINGERSTICK GLU 155 mg/dL High 74-106 [facility] Comment on above: Result Comment: TALIA GEMENT OF PATIENT CARE PER NURSING PROTOCOL Performed By: #### L 501.080 ####[facility] [address] [place], [address] FINGERSTICK GLU 155 mg/dL High 74-106 [facility] Comment on above: Result Comment: TALIA GEMENT OF PATIENT CARE PER NURSING PROTOCOL Performed By: #### L 501.080 ####[facility] [address] [place], [address] Bilirubin Test strip Ql (U)O rdered By: Latricia Burdick on 01-31-2025 Bilirubin Ql (U) Negative Negative [facility] CBC W/Diff, Automatedon 01-04 Absolute Lymph 2.36 X10 3/uL Normal 0.83-4.51 [facility] Comment on above: Performed By: #### L 100.0100 ####[facility] [address] [place], [address] Absolute Neut 4.7 X10 3/uL Normal 2.0-7.7 [facility] Comment on above: Performed By: #### L 100.0100 ####[facility] [address] [place], [address] Basophils/100 WBC (Bld) 0.6 % Normal 0-1 [facility] Comment on above: Performed By: #### L 100.0100 ####[facility] [address] [place], [address] Eosinophils/100 WBC (Bld) 1.2 % Normal 0-5 [facility] Comment on above: Performed By: #### L 100.0100 ####[facility] [address] [place], [address] Erythrocyte distribution width (RBC) [Ratio] 14.5 % Normal 11.6-14.6 [facility] Comment on above: Performed By: #### L 100.0100 ####[facility] [address] [place], [address] Hematocrit (Bld) [Volume fraction] 39.6 % Normal 37-47 [facility] Comment on above: Performed By: #### L 100.0100 ####[facility] [address] [place], [address] Hemoglobin (Bld) [Mass/Vol] 12.6 g/dL Normal 12.0-15.0 [facility] Comment on above: Performed By: #### L 100.0100 ####[facility] [address] [place], [address] IG% 0.400 Normal 0.0-0.9 [facility] Comment on above: Result Comment: IG% - Immature Granulocytes (promyelocytes, myelocytes andmetamyelocytes) > 1% indicates that a LEFT SHIFT is Present. Performed By: #### L 100.0100 ####[facility] [address] [place], [address] Lymphocytes/100 WBC (Bld) 30.6 % Normal 19-41 [facility] Comment on above: Performed By: #### L 100.0100 ####[facility] [address] [place], [address] MCH (RBC) [Entitic mass] 27.0 pg Normal 27.0-32.0 [facility] Comment on above: Performed By: #### L 100.0100 ####[facility] [address] [place], [address] MCHC (RBC) [Mass/Vol] 31.8 g/dL Low 32-36 [facility] Comment on above: Performed By: #### L 100.0100 ####[facility] [address] [place], [address] MCV (RBC) [Entitic vol] 84.8 fL Normal 81-99 [facility] Comment on above: Performed By: #### L 100.0100 ####[facility] [address] [place], [address] Monocytes/100 WBC (Bld) 7.0 % Normal 0-10 [facility] Comment on above: Performed By: #### L 100.0100 ####[facility] [address] [place], [address] Neutrophils/100 WBC (Bld) 60.2 % Normal 47-70 [facility] Comment on above: Performed By: #### L 100.0100 ####[facility] [address] [place], [address] Nucleated RBC (Bld) [#/Vol] 0 10*3/uL Normal 0-5 [facility] Comment on above: Performed By: #### L 100.0100 ####[facility] [address] [place], [address] Platelet mean volume (Bld) [Entitic vol] 9.5 fL Normal 6.2-12.0 [facility] Comment on above: Performed By: #### L 100.0100 ####[facility] [address] [place], [address] Platelets (Bld) [#/Vol] 228 10*3/uL Normal 150-450 [facility] Comment on above: Performed By: #### L 100.0100 ####[facility] [address] [place], [address] RBC (Bld) [#/Vol] 4.67 10*6/uL Normal 4.2-5.4 [facility] Comment on above: Performed By: #### L 100.0100 ####[facility] [address] [place], [address] RDW SD 44.3 fl High 35.1-43.9 [facility] Comment on above: Performed By: #### L 100.0100 ####[facility] [address] [place], [address] WBC (Bld) [#/Vol] 7.7 10*3/uL Normal 4.4-11.0 [facility] Comment on above: Performed By: #### L 100.0100 ####[facility] [address] [place], [address] Ketones Test strip Ql (U)Ord ered By: Latricia Burdick on 01-31-2025 Ketones Ql (U) Negative Negative [facility] Magnesiumon 01-31-2025 Magnesium [Mass/Vol] 2.0 mg/dL Normal 1.5-2.2 [facility] Comment on above: Performed By: #### L 501.2300, L501.5200, L500.2500 ####[facility] [address] [place], [address] Magnesium measurement (mass/ volume)Ordered By: Nicole Trujillo on 01-31-2025 Magnesium (Unsp spec) [Mass/Vol] 2.0 mg/dL 1.5-2.2 [facility] Mucus LM Ql (Urine sed)Order ed By: Latricia Burdick on 01-31-2025 Mucus Ql (Urine sed) 0 SEEN /hpf [facility] Nitrite Test strip Ql (U)Ord ered By: Latricia Burdick on 01-31-2025 Nitrite Ql (U) Negative Negative [facility] No Panel InformationOrdered By: Latricia Burdick on 01-31-2025 Positive < 100 ng/mL [facility] Negative < 200 ng/mL [facility] Phosphoruson 01-31-2025 Phosphate [Mass/Vol] 4.0 mg/dL Normal 2.7-4.5 [facility] Comment on above: Performed By: #### L 501.2300, L501.5200, L500.2500 ####[facility] [address], [address] Protein Test strip Ql (U)Ord ered By: Latricia Burdick on 01-31-2025 Protein Ql (U) 30 mg/dl High Negative [facility] Screening urine fentanyl trudi surementOrdered By: Latricia Burdick on 01-31-2025 fentaNYL Screen Ql (U) Negative <5 ng/mL [facility] Squamous epithelial cells de tection in urine sediment by light microscopyOrdered By: Latricia Burdick on 01-31-2025 Epithelial cells.squamous LM Ql (Urine sed) 5-10 SEEN /hpf 5-10 [facility] Transitional cells detection in urine sediment by light microscopyOrdered By: Latricia Burdick on 01-31-2025 Transitional cells LM Ql (Urine sed) 0-5 SEEN /hpf 0-5 [facility] Urinalysis, Completeon 01-31 BACTERIA 1+ /hpf Normal None Seen [facility] Comment on above: Order Comment: CLEAN CATCH Performed By: #### L 400.0001 ####[facility] [address] [place], [address] EPI,SQUAMOUS 5-10 SEEN Normal 5-10 [facility] Comment on above: Order Comment: CLEAN CATCH Performed By: #### L 400.0001 ####[facility] [address] [place], [address] EPI,TRANSITION 0-5 SEEN Normal 0-5 [facility] Comment on above: Order Comment: CLEAN CATCH Performed By: #### L 400.0001 ####[facility] [address] [place], [address] WBC 0-5 SEEN Normal 0-5 [facility] Comment on above: Order Comment: CLEAN CATCH Performed By: #### L 400.0001 ####[facility] [address] [place], [address] YEAST 1+ /hpf Normal None Seen [facility] Comment on above: Order Comment: CLEAN CATCH Performed By: #### L 400.0001 ####[facility] [address] [place], [address] Mucus Ql (Urine sed) 0 SEEN Normal [facility] Comment on above: Order Comment: CLEAN CATCH Performed By: #### L 400.0001 ####[facility] [address] [place], [address] RBC 0 SEEN Normal 0-5 [facility] Comment on above: Order Comment: CLEAN CATCH Performed By: #### L 400.0001 ####[facility] [address] [place], [address] Urine Drug Screen (VISTA)on 01-31-2025 AMPHETAMINES Negative Normal <1000 ng/mL [facility] Comment on above: Performed By: #### L 505.5000, L501.9100, L503.0106 ####[facility] [address] [facility] [address] BARBITIURATES Negative Normal < 200 ng/mL [facility] Comment on above: Performed By: #### L 505.5000, L501.9100, L503.0106 ####[facility] [address] [facility] [address] BENZODIAZIPINE Negative Normal < 200 ng/mL [facility] Comment on above: Performed By: #### L 505.5000, L501.9100, L503.0106 ####[facility] [address] [place], [address] BUP Ur Drug Scr Negative Normal < 200 ng/mL [facility] Comment on above: Performed By: #### L 505.5000, L501.9100, L503.0106 ####[facility] [address] [place], [address] COCAINE Negative Normal < 300 ng/mL [facility] Comment on above: Performed By: #### L 505.5000, L501.9100, L503.0106 ####[facility] [address] [address] [facility] [address] Fentanyl Negative Normal <5 ng/mL [facility] Comment on above: Result Comment: CONF [...] Performed By: #### L 505.5000, L501.9100, L503.0106 ####[facility] [address] [facility] [address] METHADONE Negative Normal < 300 ng/mL [facility] Comment on above: Performed By: #### L 505.5000, L501.9100, L503.0106 ####[facility] [address] [place] [id number] OPIATES Positive Normal < 300 ng/mL [facility] Comment on above: Result Comment: If c onfirmation testing is needed, a separate order will berequired to send out testing to the reference laboratory. Performed By: #### L 505.5000, L501.9100, L503.0106 ####[facility] [address] [place] [id number] OXYCODONE Positive Normal < 100 ng/mL [facility] Comment on above: Result Comment: If c onfirmation testing is needed, a separate order will berequired to send out testing to the reference laboratory. Performed By: #### L 505.5000, L501.9100, L503.0106 ####[facility] [address] [facility] [address] PCP Negative Normal < 25 ng/mL [facility] Comment on above: Performed By: #### L 505.5000, L501.9100, L503.0106 ####[facility] [address] [place] [id number] THC Positive Normal < 50 ng/mL [facility] Comment on above: Result Comment: If c onfirmation testing is needed, a separate order will berequired to send out testing to the reference laboratory. Performed By: #### L 505.5000, L501.9100, L503.0106 ####[facility] [address] [place], [address] Urine clarityOrdered By: Cuco Burdick on 01-31-2025 Clarity (U) Clear Clear [facility] Urine color determinationOrd ered By: Latricia Burdick on 01-31-2025 Color (U) Yellow Yellow [facility] Urine glucose detectionOrder ed By: Latricia Burdick on 01-31-2025 Glucose Ql (U) Normal mg/dl Normal [facility] Urine leukocyte esterase det ection by dipstickOrdered By: Latricia Burdick on 01-31-2025 Leukocyte esterase Test strip Ql (U) 25 /ul High Negative [facility] Urine pHOrdered By: Latricia mack on 01-31-2025 pH (U) 6.5 [pH] 5.0 - 8.0 [facility] Urine phencyclidine (PCP) de tectionOrdered By: Latricia Burdick on 01-31-2025 Phencyclidine Ql (U) Negative < 25 ng/mL [facility] Urine sediment bacteria coun t by microscopy (number/high power field)Ordered By: Latricia Burdick on 01-31-2025 Bacteria LM.HPF (Urine sed) [#/Area] 1 /[HPF] None Seen [facility] Urine sediment yeast count b y microscopy (number/high powered field)Ordered By: Latricia Burdick on 01-31-2025 Yeast LM.HPF (Urine sed) [#/Area] 1 /[HPF] None Seen [facility] Urine specific gravity measu rementOrdered By: Latricia Burdick on 01-31-2025 Specific gravity (U) [Rel density] 1.010 1.002-1.03 0 [facility] Urine urobilinogen measureme ntOrdered By: Latricia Burdick on 01-31-2025 Urobilinogen Ql (U) Normal mg/dl Normal [facility] White blood cell countOrdere d By: Latricia Burdick on 01-31-2025 White blood cell count 0-5 SEEN /hpf 0-5 [facility] Alcohol, Blood (Medical)-Ser umon 01-30-2025 SERUM ETOH < 10.1 Normal <=10.0 [facility] Comment on above: Result Comment: This test is for medical purposes only. The legaldefinition of intoxication varies according to local law. Performed By: #### L 505.5000, L501.9100, L503.0106 ####[facility] [address] [place], [address] Bedside Glucoseon 01-30-2025 FINGERSTICK GLU 233 mg/dL High [address] [place] [address] Comment on above: Result Comment: TALIA GEMENT OF PATIENT CARE PER NURSING PROTOCOL Performed By: #### L 501.080 ####[facility] [address] [place], [address] FINGERSTICK GLU 136 mg/dL High [address] [place] [address] Comment on above: Result Comment: TALIA GEMENT OF PATIENT CARE PER NURSING PROTOCOL Performed By: #### L 501.080 ####[facility] [address] [place], [address] FINGERSTICK GLU 259 mg/dL High [address] [place] [address] Comment on above: Result Comment: TALIA GEMENT OF PATIENT CARE PER NURSING PROTOCOL Performed By: #### L 501.080 ####[facility] [address] [place], [address] FINGERSTICK GLU 395 mg/dL High [address] [place] [address] Comment on above: Result Comment: TALIA GEMENT OF PATIENT CARE PER NURSING PROTOCOL Performed By: #### L 501.080 ####[facility] [address] [place], [address] Bilirubin, totalOrdered By: Latricia Burdick on 01-30-2025 Bilirubin [Mass/Vol] 0.54 mg/dL 0.00-1.30 [facility] CBC W/Diff, Automatedon 01-03 Absolute Lymph 2.10 X10 3/uL Normal 0.83-4.51 [facility] Comment on above: Performed By: #### L 100.0100, L500.4050, L501.2300, L500.4100 ####[facility] [address] [place], [address] Absolute Neut 4.0 X10 3/uL Normal 2.0-7.7 [facility] Comment on above: Performed By: #### L 100.0100, L500.4050, L501.2300, L500.4100 ####[facility] [address] [place], [address] Basophils/100 WBC (Bld) 0.7 % Normal 0-1 [facility] Comment on above: Performed By: #### L 100.0100, L500.4050, L501.2300, L500.4100 ####[facility] [address] [place], [address] Eosinophils/100 WBC (Bld) 1.3 % Normal 0-5 [facility] Comment on above: Performed By: #### L 100.0100, L500.4050, L501.2300, L500.4100 ####[facility] [address] [place], [address] Erythrocyte distribution width (RBC) [Ratio] 14.6 % Normal 11.6-14.6 [facility] Comment on above: Performed By: #### L 100.0100, L500.4050, L501.2300, L500.4100 ####[facility] [address] [place], [address] Hematocrit (Bld) [Volume fraction] 39.6 % Normal 37-47 [facility] Comment on above: Performed By: #### L 100.0100, L500.4050, L501.2300, L500.4100 ####[facility] [address] [place], [address] Hemoglobin (Bld) [Mass/Vol] 12.7 g/dL Normal 12.0-15.0 [facility] Comment on above: Performed By: #### L 100.0100, L500.4050, L501.2300, L500.4100 ####[facility] [address] [place], [address] IG% 0.300 Normal 0.0-0.9 [facility] Comment on above: Result Comment: IG% - Immature Granulocytes (promyelocytes, myelocytes andmetamyelocytes) > 1% indicates that a LEFT SHIFT is Present. Performed By: #### L 100.0100, L500.4050, L501.2300, L500.4100 ####[facility] [address] [place], [address] Lymphocytes/100 WBC (Bld) 31.3 % Normal 19-41 [facility] Comment on above: Performed By: #### L 100.0100, L500.4050, L501.2300, L500.4100 ####[facility] [address] [place], [address] MCH (RBC) [Entitic mass] 27.2 pg Normal 27.0-32.0 [facility] Comment on above: Performed By: #### L 100.0100, L500.4050, L501.2300, L500.4100 ####[facility] [address] [place], [address] MCHC (RBC) [Mass/Vol] 32.1 g/dL Normal 32-36 [facility] Comment on above: Performed By: #### L 100.0100, L500.4050, L501.2300, L500.4100 ####[facility] [address] [place], [address] MCV (RBC) [Entitic vol] 84.8 fL Normal 81-99 [facility] Comment on above: Performed By: #### L 100.0100, L500.4050, L501.2300, L500.4100 ####[facility] [address] [place], [address] Monocytes/100 WBC (Bld) 6.7 % Normal 0-10 [facility] Comment on above: Performed By: #### L 100.0100, L500.4050, L501.2300, L500.4100 ####[facility] [address] [place], [address] Neutrophils/100 WBC (Bld) 59.7 % Normal 47-70 [facility] Comment on above: Performed By: #### L 100.0100, L500.4050, L501.2300, L500.4100 ####[facility] [address] [place], [address] Nucleated RBC (Bld) [#/Vol] 0 10*3/uL Normal 0-5 [facility] Comment on above: Performed By: #### L 100.0100, L500.4050, L501.2300, L500.4100 ####[facility] [address] [place], [address] Platelet mean volume (Bld) [Entitic vol] 10.2 fL Normal 6.2-12.0 [facility] Comment on above: Performed By: #### L 100.0100, L500.4050, L501.2300, L500.4100 ####[facility] [address] [place], [address] Platelets (Bld) [#/Vol] 209 10*3/uL Normal 150-450 [facility] Comment on above: Performed By: #### L 100.0100, L500.4050, L501.2300, L500.4100 ####[facility] [address] [place], [address] RBC (Bld) [#/Vol] 4.67 10*6/uL Normal 4.2-5.4 [facility] Comment on above: Performed By: #### L 100.0100, L500.4050, L501.2300, L500.4100 ####[facility] [address] [place], [address] RDW SD 44.7 fl High 35.1-43.9 [facility] Comment on above: Performed By: #### L 100.0100, L500.4050, L501.2300, L500.4100 ####[facility] [address] [place], [address] WBC (Bld) [#/Vol] 6.7 10*3/uL Normal 4.4-11.0 [facility] Comment on above: Performed By: #### L 100.0100, L500.4050, L501.2300, L500.4100 ####[facility] [address] [place], [address] Calculated very low density lipoprotein (VLDL) cholesterol measurementOrdered By: Latricia Burdick on 01-30-2025 Calculated very low density lipoprotein (VLDL) cholesterol measurement 57 mg/dL High 5-40 [facility] Comprehensive Metabolic Prof ilon 01-30-2025 Albumin [Mass/Vol] 3.0 g/dL Low 3.5-5.0 [facility] Comment on above: Performed By: #### L 100.0100, L500.4050, L501.2300, L500.4100 ####[facility] [address] [place], [address] Albumin/Globulin [Mass ratio] 1.2 {ratio} Normal 0.9-2.4 [facility] Comment on above: Performed By: #### L 100.0100, L500.4050, L501.2300, L500.4100 ####[facility] [address] [place], [address] ALK PHOS 110 U/L High 35-104 [facility] Comment on above: Performed By: #### L 100.0100, L500.4050, L501.2300, L500.4100 ####[facility] [address] [place], [address] ALT [Catalytic activity/Vol] 11 U/L Normal <=34 [facility] Comment on above: Performed By: #### L 100.0100, L500.4050, L501.2300, L500.4100 ####[facility] [address] [place], [address] AST [Catalytic activity/Vol] 17 U/L Normal <=31 [facility] Comment on above: Performed By: #### L 100.0100, L500.4050, L501.2300, L500.4100 ####[facility] [address] [place], [address] Bilirubin [Mass/Vol] 0.54 mg/dL Normal 0.00-1.30 [facility] Comment on above: Performed By: #### L 100.0100, L500.4050, L501.2300, L500.4100 ####[facility] [address] [place], [address] BUN/CRE 12.6 RATIO Normal 10-20 [facility] Comment on above: Performed By: #### L 100.0100, L500.4050, L501.2300, L500.4100 ####[facility] [address] [place], [address] Calcium [Mass/Vol] 8.4 mg/dL Normal 7.6-11.0 [facility] Comment on above: Performed By: #### L 100.0100, L500.4050, L501.2300, L500.4100 ####[facility] [address] [place], [address] Chloride [Moles/Vol] 99 mmol/L Normal 98-108 [facility] Comment on above: Performed By: #### L 100.0100, L500.4050, L501.2300, L500.4100 ####[facility] [address] [place], [address] CO2 [Moles/Vol] 22.7 mmol/L Normal 21.0-32.0 [facility] Comment on above: Performed By: #### L 100.0100, L500.4050, L501.2300, L500.4100 ####[facility] [address] [place], [address] Creatinine [Mass/Vol] 0.65 mg/dL Low 0.70-1.20 [facility] Comment on above: Performed By: #### L 100.0100, L500.4050, L501.2300, L500.4100 ####[facility] [address] [place], [address] ECRCL 107.23 ml/min Normal 50-250 [facility] Comment on above: Performed By: #### L 100.0100, L500.4050, L501.2300, L500.4100 ####[facility] [address] [place], [address] GAP 10 Normal 5-15 [facility] Comment on above: Performed By: #### L 100.0100, L500.4050, L501.2300, L500.4100 ####[facility] [address] [place], [address] GFR/1.73 sq M.predicted among non-blacks MDRD (S/P/Bld) [Vol rate/Area] 105 mL/min/{1.73_m2} Normal >60 [facility] Comment on above: Result Comment: mL/m in/1.73m2 CKD-EPI Creatinine Equation (2020) Performed By: #### L 100.0100, L500.4050, L501.2300, L500.4100 ####[facility] [address] [place], [address] Globulin (S) [Mass/Vol] 2.6 g/dL Normal 2.2-4.2 [facility] Comment on above: Performed By: #### L 100.0100, L500.4050, L501.2300, L500.4100 ####[facility] [address] [place], [address] Glucose [Mass/Vol] 385 mg/dL High 70-99 [facility] Comment on above: Performed By: #### L 100.0100, L500.4050, L501.2300, L500.4100 ####[facility] [address] [place], [address] Potassium [Moles/Vol] 3.9 mmol/L Normal 3.3-5.1 [facility] Comment on above: Performed By: #### L 100.0100, L500.4050, L501.2300, L500.4100 ####[facility] [address] [place], [address] Sodium [Moles/Vol] 132 mmol/L Low 133-145 [facility] Comment on above: Performed By: #### L 100.0100, L500.4050, L501.2300, L500.4100 ####[facility] [address] [place], [address] T PROT 5.5 g/dL Low 5.9-8.4 [facility] Comment on above: Performed By: #### L 100.0100, L500.4050, L501.2300, L500.4100 ####[facility] [address] [place], [address] Urea nitrogen [Mass/Vol] 8 mg/dL Normal 4-19 [facility] Comment on above: Performed By: #### L 100.0100, L500.4050, L501.2300, L500.4100 ####[facility] [address] [place], [address] Folates,Serum (Folic Acid)on 01-30-2025 FOLATES,SERUM 11.90 ng/mL Normal 4.60-34.80 [facility] Comment on above: Result Comment: Hemo lysis, Results will be affected, Requires Recollection. Performed By: #### L 506.0200 ####[facility] [address], [address] LDL calc ser/plasOrdered By: Latricia Burdick on 01-30-2025 Cholesterol in LDL [Mass/Vol] 82 mg/dL [facility] Lipid Profileon 01-30-2025 CHOL:HDL 4.53 Normal [facility] Comment on above: Performed By: #### L 100.0100, L500.4050, L501.2300, L500.4100 ####[facility] [address], [address] Cholesterol [Mass/Vol] 178 mg/dL Normal <=200 [facility] Comment on above: Result Comment: Chol esterol level, Desirable <200 mg/dLBorderline high cholesterol 200-239 mg/dLHigh cholesterol >=240 mg/dLRecommendations of the NCEP Adult Treatment Panel for thefollowing risk-cutoff thresholds for the [place] Americanpulation. Performed By: #### L 100.0100, L500.4050, L501.2300, L500.4100 ####[facility] [address] [place], [address] Cholesterol in HDL [Mass/Vol] 39 mg/dL Low [facility] Comment on above: Result Comment: Aleyda onal Cholesterol Education Program (NCEP) guidelines:<40 mg/dL: Low HDL-cholesterol (major risk factor for CHD)>= 60 mg/dL: High HDL-cholesterol (negative risk factor forCHD)HDL-cholesterol is affected by a number of factors, e.g.smoking, exercise, hormones, sex and age. Performed By: #### L 100.0100, L500.4050, L501.2300, L500.4100 ####[facility] [address] [place], [address] Cholesterol in LDL [Mass/Vol] 82 mg/dL Normal [facility] Comment on above: Result Comment: Bord galshb=482-883 mg/dL Higher Hcsc=190 mg/dL or greaterFriedwald Equation for LDL-C Performed By: #### L 100.0100, L500.4050, L501.2300, L500.4100 ####[facility] [address] [place], [address] Cholesterol in VLDL [Mass/Vol] 57 mg/dL High 5-40 [facility] Comment on above: Performed By: #### L 100.0100, L500.4050, L501.2300, L500.4100 ####[facility] [address] [place], [address] Triglyceride [Mass/Vol] 284 mg/dL High [facility] Comment on above: Result Comment: The drugs N-Acetylcysteine and Metamizole may falselydepress this assay.Normal range: <150 mg/dLBorderline High: 150-199 mg/dLHigh: 200-499 mg/dLVery High: >500 mg/dL Performed By: #### L 100.0100, L500.4050, L501.2300, L500.4100 ####[facility] [address] [place], [address] No Panel InformationOrdered By: Latricia Burdick on 01-30-2025 17 U/L <32 [facility] Phosphoruson 01-30-2025 Phosphate [Mass/Vol] 3.2 mg/dL Normal 2.7-4.5 [facility] Comment on above: Performed By: #### L 100.0100, L500.4050, L501.2300, L500.4100 ####[facility] [address] [place], [address] Serum globulin measurementOr dered By: Latricia Burdick on 01-30-2025 Globulin (S) [Mass/Vol] 2.6 g/dL 2.2-4.2 [facility] Serum or plasma alanine hamilton otransferase (ALT) measurementOrdered By: Latricia Burdick on 01-30-2025 ALT [Catalytic activity/Vol] 11 U/L <35 [facility] Serum or plasma albumin xiomara urement (mass/volume)Ordered By: Latricia Burdick on 01-30-2025 Albumin [Mass/Vol] 3.0 g/dL Low 3.5-5.0 [facility] Serum or plasma albumin/glob ulin mass ratioOrdered By: Latricia Burdick on 01-30-2025 Albumin/Globulin [Mass ratio] 1.2 {ratio} 0.9-2.4 [facility] Serum or plasma alkaline sabiha sphatase measurementOrdered By: Latricia Burdick on 01-30-2025 ALP [Catalytic activity/Vol] 110 U/L High 35-104 [facility] Serum or plasma cholesterol in HDL measurement (mass/volume)Ordered By: Latricia Burdick on 01-30-2025 Cholesterol in HDL [Mass/Vol] 39 mg/dL Low >40 [facility] Serum or plasma cholesterol measurement (mass/volume)Ordered By: Latricia Burdick on 01-30-2025 Cholesterol [Mass/Vol] 178 mg/dL <201 [facility] Total proteinOrdered By: Cuco Burdick on 01-30-2025 Protein [Mass/Vol] 5.5 g/dL Low 5.9-8.4 [facility] Vitamin B12on 01-30-2025 Cobalamin (Vitamin B12) [Mass/Vol] 344 pg/mL Normal 180-914 [facility] Comment on above: Performed By: #### L 505.5000, L501.9100, L503.0106 ####[facility] [address] [place], [address] Absolute lymphocyte countOrd ered By: Martina Martínez on 01-29-2025 Lymphocytes Auto (Unsp spec) [#/Vol] 1.44 10*3/uL 0.83-4.51 [facility] Absolute neutrophil countOrd ered By: Martina Martínez on 01-29-2025 Neutrophils (Bld) [#/Vol] 5.9 10*3/uL 2.0-7.7 [facility] Anion gap in Serum or Plasma Ordered By: Martina Martínez on 01-29-2025 Anion gap [Moles/Vol] 10 mmol/L 5-15 [facility] Automated blood erythrocyte countOrdered By: Martina Martínez on 01-29-2025 RBC (Bld) [#/Vol] 5.24 10*6/uL Normal 4.2-5.4 [facility] Comment on above: Performed By: #### L 501.6710, L500.2500, L100.0100 ####[facility] [address] [place], [address] Automated blood hematocrit ( percentage)Ordered By: Martina Martínez on 01-29-2025 Hematocrit (Bld) [Volume fraction] 43.4 % Normal 37-47 [facility] Comment on above: Performed By: #### L 501.6710, L500.2500, L100.0100 ####[facility] [address] [place], [address] Automated lymphocyte count a s percentage of total leukocytesOrdered By: Martina Martínez on 01-29-2025 Lymphocytes/100 WBC Auto (Unsp spec) 18.4 % Low 19-41 [facility] BUN/creatinine ratioOrdered By: Martina Martínez on 01-29-2025 Urea nitrogen/Creatinine [Mass ratio] 9.0 mg/mg Low 10-20 [facility] Basic Metabolic Profile (BMP )on 01-29-2025 BUN/CRE 9.0 RATIO Low 10- [facility] Comment on above: Performed By: #### L 501.6710, L500.2500, L100.0100 ####[facility] [address] [place], [address] ECRCL 104.07 ml/min Normal 50-250 [facility] Comment on above: Performed By: #### L 501.6710, L500.2500, L100.0100 ####[facility] [address] [place], [address] GAP 10 Normal 5-15 [facility] Comment on above: Performed By: #### L 501.6710, L500.2500, L100.0100 ####[facility] [address] [place], [address] Potassium [Moles/Vol] 4.1 mmol/L Normal 3.3-5.1 [facility] Comment on above: Performed By: #### L 501.6710, L500.2500, L100.0100 ####[facility] [address] [place], [address] Basophil percentageOrdered B y: Martina Martínez on 01-29-2025 Basophils/100 WBC (Bld) 0.8 % Normal 0-1 [facility] Comment on above: Performed By: #### L 501.6710, L500.2500, L100.0100 ####[facility] [address] [place], [address] Bedside Glucoseon 01-29-2025 FINGERSTICK GLU 241 mg/dL High 74-106 [facility] Comment on above: Result Comment: TALIA CHAMBERS OF PATIENT CARE PER NURSING PROTOCOL Performed By: #### L 501.080 ####[facility] [address] [place], [address] CBC W/Diff, Automatedon 08- Absolute Lymph 1.44 X10 3/uL Normal 0.83-4.51 [facility] Comment on above: Performed By: #### L 501.6710, L500.2500, L100.0100 ####[facility] [address] [place], [address] Absolute Neut 5.9 X10 3/uL Normal 2.0-7.7 [facility] Comment on above: Performed By: #### L 501.6710, L500.2500, L100.0100 ####[facility] [address] [place], [address] IG% 0.500 Normal 0.0-0.9 [facility] Comment on above: Result Comment: IG% - Immature Granulocytes (promyelocytes, myelocytes andmetamyelocytes) > 1% indicates that a LEFT SHIFT is Present. Performed By: #### L 501.6710, L500.2500, L100.0100 ####[facility] [address] [place], [address] Lymphocytes/100 WBC (Bld) 18.4 % Low 19-41 [facility] Comment on above: Performed By: #### L 501.6710, L500.2500, L100.0100 ####[facility] [address] [place], [address] Nucleated RBC (Bld) [#/Vol] 0 10*3/uL Normal 0-5 [facility] Comment on above: Performed By: #### L 501.6710, L500.2500, L100.0100 ####[facility] [address] [place], [address] RDW SD 42.9 fl Normal 35.1-43.9 [facility] Comment on above: Performed By: #### L 501.6710, L500.2500, L100.0100 ####[facility] [address] [place], [address] CRPon 01-29-2025 C-REACTIVE PROT < 3.00 Normal 0.0-3.0 [facility] Comment on above: Performed By: #### L 501.6710, L500.2500, L100.0100 ####[facility] [address] [place], [address] Carbon dioxide, total [Moles /volume] in Central venous bloodOrdered By: Martina Martínez on 01-29-2025 CO2 [Moles/Vol] 23.8 mmol/L Normal 21.0-32.0 [facility] Comment on above: Performed By: #### L 501.6710, L500.2500, L100.0100 ####[facility] [address] [place], [address] Chloride assayOrdered By: Rickey Martínez on 01-29-2025 Chloride [Moles/Vol] 99 mmol/L Normal 98-108 [facility] Comment on above: Performed By: #### L 501.6710, L500.2500, L100.0100 ####[facility] [address] [place], [address] Emergency Department Summary on 01-29-2025 Emergency Department Summary Normal [facility] Eosinophil percentageOrdered By: Martina Martínez on 01-29-2025 Eosinophils/100 WBC (Bld) 0.4 % Normal 0-5 [facility] Comment on above: Performed By: #### L 501.6710, L500.2500, L100.0100 ####[facility] [address] [place], [address] Erythrocyte distribution wid th ratioOrdered By: Martina Martínez on 01-29-2025 Erythrocyte distribution width (RBC) [Ratio] 14.4 % Normal 11.6-14.6 [facility] Comment on above: Performed By: #### L 501.6710, L500.2500, L100.0100 ####[facility] [address] [place], [address] Erythrocyte distribution wid th standard deviationOrdered By: Martina Martínez on 01-29-2025 Erythrocyte distribution width (RBC) [Ratio] 42.9 fl 35.1-43.9 [facility] Folate [Moles/volume] in Ser um or PlasmaOrdered By: Latricia Burdick on 01-29-2025 Folate [Moles/Vol] 11.90 ng/mL 4.60-34.80 [facility] Glomerular filtration rate ( GFR) estimation/1.73 sq m using serum, plasma, or whole bOrdered By: Martina Martínez on 01-29-2025 GFR/1.73 sq M.predicted among non-blacks MDRD (S/P/Bld) [Vol rate/Area] 105 mL/min/{1.73_m2} Normal >60 [facility] Comment on above: mL/min/1.73m2 CKD-EP I Creatinine Equation (2020) Result Comment: mL/m in/1.73m2 CKD-EPI Creatinine Equation (2020) Performed By: #### L 501.6710, L500.2500, L100.0100 ####[facility] [address] [place], [place], [address] H AND P Exam - Hospital[place] 01-29-2025 H&P Exam - Hospitalist Normal [facility] HIP, UNI W/ Pelvis 2-3 Views on 01-29-2025 HIP, UNI W/ Pelvis 2-3 Views Normal [facility] Hemoglobin A1c percentageOrd ered By: Latricia Burdick on 01-29-2025 HbA1c (Bld) [Mass fraction] 13.2 % High <=5.6 [facility] Comment on above: Normal < 5.7 % Predi abetic 5.7 - 6.4 % Diabetic >or= 6.5 % Please note range changes. Result Comment: Norm al < 5.7 % Prediabetic 5.7 - 6.4 % Diabetic >or= 6.5 % Please note range changes. Performed By: #### L 501.9520, L501.5200, L501.9902 ####[facility] [address] [place], [place], [address] Hemoglobin measurementOrdere d By: Martina Martínez on 01-29-2025 Hemoglobin (Bld) [Mass/Vol] 14.3 g/dL Normal 12.0-15.0 [facility] Comment on above: Performed By: #### L 501.6710, L500.2500, L100.0100 ####[facility] [address] [place], [address] Immature granulocytes/100 WB C Auto (Bld)Ordered By: Martina Martínez on 01-29-2025 Immature granulocytes/100 WBC (Bld) 0.500 % 0.0-0.9 [facility] Comment on above: IG% - Immature Granu locytes (promyelocytes, myelocytes and metamyelocytes) > 1% indicates that a LEFT SHIFT is Present. MCV (mean corpuscular volume ) determinationOrdered By: Martina Martínez on 01-29-2025 MCV (RBC) [Entitic vol] 82.8 fL Normal 81-99 [facility] Comment on above: Performed By: #### L 501.6710, L500.2500, L100.0100 ####[facility] [address] [place], [address] Magnesiumon 01-29-2025 Magnesium [Mass/Vol] 2.0 mg/dL Normal 1.5-2.2 [facility] Comment on above: Performed By: #### L 501.9520, L501.5200, L501.9985 ####[facility] [address] [place], [address] Mean corpuscular hemoglobin (MCH) determinationOrdered By: Martina Martínez on 01-29-2025 MCH (RBC) [Entitic mass] 27.3 pg Normal 27.0-32.0 [facility] Comment on above: Performed By: #### L 501.6710, L500.2500, L100.0100 ####[facility] [address] [place], [address] Mean corpuscular hemoglobin concentration (MCHC) determinationOrdered By: Martina Martínez on 01-29-2025 MCHC (RBC) [Mass/Vol] 32.9 g/dL Normal 32-36 [facility] Comment on above: Performed By: #### L 501.6710, L500.2500, L100.0100 ####[facility] [address] [place], [address] Mean platelet volume determi nationOrdered By: Martina Martínez on 01-29-2025 Platelet mean volume (Bld) [Entitic vol] 10.1 fL Normal 6.2-12.0 [facility] Comment on above: Performed By: #### L 501.6710, L500.2500, L100.0100 ####[facility] [address] [place], [address] Monocyte percentageOrdered B y: Martina Martínez on 01-29-2025 Monocytes/100 WBC (Bld) 5.4 % Normal 0-10 [facility] Comment on above: Performed By: #### L 501.6710, L500.2500, L100.0100 ####[facility] [address] [place], [address] Neutrophil percentageOrdered By: Martina Martínez on 01-29-2025 Neutrophils/100 WBC (Bld) 74.5 % High 47-70 [facility] Comment on above: Performed By: #### L 501.6710, L500.2500, L100.0100 ####[facility] [address] [place], [address] Nucleated red blood cell per centageOrdered By: Martina Martínez on 01-29-2025 Nucleated RBC/100 WBC (Bld) [Ratio] 0 % 0-5 [facility] Platelet countOrdered By: Rickey Martínez on 01-29-2025 Platelets (Bld) [#/Vol] 240 10*3/uL Normal 150-450 [facility] Comment on above: Performed By: #### L 501.6710, L500.2500, L100.0100 ####[facility] [address] [place], [address] Potassium measurement (mass/ volume)Ordered By: Martina Martínez on 01-29-2025 Potassium (Unsp spec) [Mass/Vol] 4.1 mmol/L 3.3-5.1 [facility] Serum creatinine measurement (mass/volume)Ordered By: Martina Martínez on 01-29-2025 Creatinine [Mass/Vol] 0.65 mg/dL Low 0.70-1.20 [facility] Comment on above: Performed By: #### L 501.6710, L500.2500, L100.0100 ####[facility] [address], [address] Serum glucose measurement (m ass/volume)Ordered By: Martina Martínez on 01-29-2025 Glucose [Mass/Vol] 344 mg/dL High 70-99 [facility] Comment on above: Performed By: #### L 501.6710, L500.2500, L100.0100 ####[facility] [address] [place], [address] Serum or plasma C reactive p rotein measurement (mass/volume)Ordered By: Martina Martínez on 01-29-2025 CRP [Mass/Vol] mg/L 0.0-3.0 [facility] Serum or plasma calcium xiomara urement (mass/volume)Ordered By: Martina Martínez on 01-29-2025 Calcium [Mass/Vol] 8.9 mg/dL Normal 7.6-11.0 [facility] Comment on above: Performed By: #### L 501.6710, L500.2500, L100.0100 ####[facility] [address] [place], [address] Serum or plasma ethanol xiomara urement (mass/volume)Ordered By: Latricia Burdick on 01-29-2025 Ethanol [Mass/Vol] mg/dL <10.1 [facility] Serum or plasma urea nitroge n measurement (mass/volume)Ordered By: Martina Martínez on 01-29-2025 Urea nitrogen [Mass/Vol] 6 mg/dL Normal 4-19 [facility] Comment on above: Performed By: #### L 501.6710, L500.2500, L100.0100 ####[facility] [address] [place], [address] Sodium levelOrdered By: Libby Martínez on 01-29-2025 Sodium [Moles/Vol] 134 mmol/L Normal 133-145 [facility] Comment on above: Performed By: #### L 501.6710, L500.2500, L100.0100 ####[facility] [address] [place], [address] TSH DL <= 0.005 mIU/L QnOrde red By: Latricia Burdick on 01-29-2025 TSH Qn 1.870 uIU/mL 0.300-4.20 0 [facility] Thyroid Stim Hormone (TSH)on 01-29-2025 TSH 1.870 uIU/mL Normal 0.300-4.20 0 [facility] Comment on above: Performed By: #### L 501.9520, L501.5200, L501.9985 ####[facility] [address] [place], [place], [address] Vitamin B12 ser/plasOrdered By: Latricia Burdick on 01-29-2025 Cobalamin (Vitamin B12) [Mass/Vol] 344 pg/mL 180-914 [facility] White blood cell (WBC) count Ordered By: Martina Martínez on 01-29-2025 WBC (Bld) [#/Vol] 7.8 10*3/uL Normal 4.4-11.0 [facility] Comment on above: Performed By: #### L 501.6710, L500.2500, L100.0100 ####[facility] [address] [place], [address] Anion gap in Serum or Plasma Ordered By: Darlyn Galeano on 12-12-2024 Anion gap [Moles/Vol] 11 mmol/L 5-15 [facility] Ankle min 3 Viewson 12-13-19 25 Ankle min 3 Views Normal [facility] BUN/creatinine ratioOrdered By: Darlyn Galeano on 12-12-2024 Urea nitrogen/Creatinine [Mass ratio] 8.9 mg/mg Low - [facility] Basic Metabolic Profile (BMP )on 12-12-2024 BUN/CRE 8.9 RATIO Low 03-23 [facility] Comment on above: Performed By: #### L 500.2500 ####[facility] [address] [place], [address] GAP 11 Normal - [facility] Comment on above: Performed By: #### L 500.2500 ####[facility] [address] [place], [address] Potassium [Moles/Vol] 3.9 mmol/L Normal 3.3-5.1 [facility] Comment on above: Performed By: #### L 500.2500 ####[facility] [address] [place], [address] Bedside Glucoseon 12-12-2024 FINGERSTICK GLU 346 mg/dL High 74-106 [facility] Comment on above: Result Comment: TALIA CHAMBERS OF PATIENT CARE PER NURSING PROTOCOL Performed By: #### L 501.080 ####[facility] [address] [place], [address] Carbon dioxide, total [Moles /volume] in Central venous bloodOrdered By: Darlyn Galeano on 12-12-2024 CO2 [Moles/Vol] 23.3 mmol/L Normal 21.0-32.0 [facility] Comment on above: Performed By: #### L 500.2500 ####[facility] [address] [place], [place], [address] Chloride assayOrdered By: Dipika Galeano on 12-12-2024 Chloride [Moles/Vol] 98 mmol/L Normal 98-108 [facility] Comment on above: Performed By: #### L 500.2500 ####[facility] [address] [place], [place], [address] Emergency Department Summary on 12-12-2024 Emergency Department Summary Normal [facility] Foot min 3 Viewson Foot min 3 Views Normal [facility] Glomerular filtration rate ( GFR) estimation/1.73 sq m using serum, plasma, or whole bOrdered By: Darlyn Galeano on 12-12-2024 GFR/1.73 sq M.predicted among non-blacks MDRD (S/P/Bld) [Vol rate/Area] 105 mL/min/{1.73_m2} Normal >60 [facility] Comment on above: mL/min/1.73m2 CKD-EP I Creatinine Equation (2020) Result Comment: mL/m in/1.73m2 CKD-EPI Creatinine Equation (2020) Performed By: #### L 500.2500 ####[facility] [address] [place], [place], [address] [facility] deOrdered By: Derek Paniagua on 12-12-2024 Glucose [Mass/Vol] 346 mg/dL High 74-106 [facility] Comment on above: MANAGEMENT OF PATIEN T CARE PER NURSING PROTOCOL Potassium measurement (mass/ volume)Ordered By: Darlyn Galeano on 12-12-2024 Potassium (Unsp spec) [Mass/Vol] 3.9 mmol/L 3.3-5.1 [facility] Serum creatinine measurement (mass/volume)Ordered By: Darlyn Galeano on 12-12-2024 Creatinine [Mass/Vol] 0.66 mg/dL Low 0.70-1.20 [facility] Comment on above: Performed By: #### L 500.2500 ####[facility] [address] [place], [address] Serum glucose measurement (m ass/volume)Ordered By: Darlynneville Galeano on 12-12-2024 Glucose [Mass/Vol] 327 mg/dL High 70-99 [facility] Comment on above: Performed By: #### L 500.2500 ####[facility] [address] [place], [address] Serum or plasma calcium xiomara urement (mass/volume)Ordered By: Darlyn Galeano on 12-12-2024 Calcium [Mass/Vol] 9.2 mg/dL Normal 7.6-11.0 [facility] Comment on above: Performed By: #### L 500.2500 ####[facility] [address] [place], [address] Serum or plasma urea nitroge n measurement (mass/volume)Ordered By: Darlyn Galeano on 12-12-2024 Urea nitrogen [Mass/Vol] 6 mg/dL Normal 4-19 [facility] Comment on above: Performed By: #### L 500.2500 ####[facility] [address] [place], [address] Sodium levelOrdered By: Darlynneville Galeano on 12-12-2024 Sodium [Moles/Vol] 132 mmol/L Low 133-145 [facility] Comment on above: Performed By: #### L 500.2500 ####[facility] [address] [place], [address] 12 Lead EKGon 09-29-2024 12 Lead EKG Normal [facility] ALP [Catalytic activity/Vol] Ordered By: Nina Richardson on 09-29-2024 Serum or plasma alkaline phosphatase measurement 179 U/L High 35-104 [facility] ALT [Catalytic activity/Vol] Ordered By: Nina Richardson on 09-29-2024 Serum or plasma alanine aminotransferase (ALT) measurement 12 U/L <35 [facility] Absolute lymphocyte countOrd ered By: Nina Richardson on 09-29-2024 Lymphocytes Auto (Unsp spec) [#/Vol] 0.91 10*3/uL 0.83-4.51 [facility] Absolute neutrophil countOrd ered By: Nina Richardson on 09-29-2024 Absolute neutrophil count 14.1 X10^3/uL High 2.0-7.7 [facility] Albumin [Mass/Vol]Ordered By : Nina Richardson on 09-29-2024 Serum or plasma albumin measurement (mass/volume) 3.7 g/dL 3.5-5.0 [facility] Albumin/Globulin [Mass ratio ]Ordered By: Nina Richardson on 09-29-2024 Serum or plasma albumin/globulin mass ratio 1.0 RATIO 0.9-2.4 [facility] Anion gap [Moles/Vol]Ordered By: Nina Richardson on 09-29-2024 Anion gap in Serum or Plasma 15 5-15 [facility] Anion gap in Serum or Plasma Ordered By: Nina Richardson on 09-29-2024 Anion gap [Moles/Vol] 15 mmol/L - [facility] Automated lymphocyte count a s percentage of total leukocytesOrdered By: Nina Richardson on 09-29-2024 Lymphocytes/100 WBC Auto (Unsp spec) 5.8 % Low 19-41 [facility] BUN/creatinine ratioOrdered By: Nina Richardson on 09-29-2024 Urea nitrogen/Creatinine [Mass ratio] 20.5 mg/mg High 10-20 [facility] BUN/creatinine ratio 20.5 RATIO High 10-20 [facility] Basophil percentageOrdered B y: Nina Richardson on 09-29-2024 Basophils/100 WBC (Bld) 0.4 % 0-1 [facility] Basophil percentage 0.4 % 0-1 [facility] Bedside Glucoseon 09-29-2024 FINGERSTICK GLU 382 mg/dL High 74-106 [facility] Comment on above: Result Comment: TALIA CHAMBERS OF PATIENT CARE PER NURSING PROTOCOL Performed By: #### L 501.080 ####[facility] [address] [place], [address] FINGERSTICK GLU 412 mg/dL High 74-106 [facility] Comment on above: Result Comment: TALIA GEMENT OF PATIENT CARE PER NURSING PROTOCOL Performed By: #### L 501.080 ####[facility] [address] [place], [place], [address] FINGERSTICK GLU 412 mg/dL High 74-106 [facility] Comment on above: Result Comment: TALIA GEMENT OF PATIENT CARE PER NURSING PROTOCOL Performed By: #### L 501.080 ####[facility] [address] [place], [address] Beta hydroxybutyrate [Mass/V ol]Ordered By: Nina Richardson on 09-29-2024 Beta-hydroxybutyrate 1.3 mmol/L 0.0-0.3 [facility] Beta-Hydroxbytyrateon 2024 BETA-HYDROXYBUT 1.3 mmol/L Normal 0.0-0.3 [facility] Comment on above: Performed By: #### L 501.6901 ####[facility] [address] [place], [place], [address] Beta-hydroxybutyrateOrdered By: Nina Richardson on 09-29-2024 Beta hydroxybutyrate [Mass/Vol] 1.3 mmol/L 0.0-0.3 [facility] Bilirubin Test strip Ql (U)O rdered By: Nina Richardson on 09-29-2024 Bilirubin Ql (U) Negative Negative [facility] Bilirubin, totalOrdered By: Nina Richardson on 09-29-2024 Bilirubin [Mass/Vol] 0.90 mg/dL 0.00-1.30 [facility] Bilirubin, total 0.90 mg/dL 0.00-1.30 [facility] CBC W/Diff, Automatedon 09-03 Absolute Lymph 0.91 X10 3/uL Normal 0.83-4.51 [facility] Comment on above: Performed By: #### L 500.4050, L501.2450, L100.0100 ####[facility] [address] [place], [place], [id number](504) Absolute Neut 14.1 X10 3/uL High 2.0-7.7 [facility] Comment on above: Performed By: #### L 500.4050, L501.2450, L100.0100 ####[facility] [address] [place], [address] Basophils/100 WBC (Bld) 0.4 % Normal 0-1 [facility] Comment on above: Performed By: #### L 500.4050, L501.2450, L100.0100 ####[facility] [address] [place], [address] Eosinophils/100 WBC (Bld) 0.1 % Normal 0-5 [facility] Comment on above: Performed By: #### L 500.4050, L501.2450, L100.0100 ####[facility] [address] [place], [address] Erythrocyte distribution width (RBC) [Ratio] 13.2 % Normal 11.6-14.6 [facility] Comment on above: Performed By: #### L 500.4050, L501.2450, L100.0100 ####[facility] [address] [place], [address] Hematocrit (Bld) [Volume fraction] 38.0 % Normal 37-47 [facility] Comment on above: Performed By: #### L 500.4050, L501.2450, L100.0100 ####[facility] [address] [place], [address] Hemoglobin (Bld) [Mass/Vol] 12.9 g/dL Normal 12.0-15.0 [facility] Comment on above: Performed By: #### L 500.4050, L501.2450, L100.0100 ####[facility] [address] [place], [address] IG% 0.600 Normal 0.0-0.9 [facility] Comment on above: Result Comment: IG% - Immature Granulocytes (promyelocytes, myelocytes andmetamyelocytes) > 1% indicates that a LEFT SHIFT is Present. Performed By: #### L 500.4050, L501.2450, L100.0100 ####[facility] [address] [place], [address] Lymphocytes/100 WBC (Bld) 5.8 % Low 19-41 [facility] Comment on above: Performed By: #### L 500.4050, L501.2450, L100.0100 ####[facility] [address] [place], [address] MCH (RBC) [Entitic mass] 27.9 pg Normal 27.0-32.0 [facility] Comment on above: Performed By: #### L 500.4050, L501.2450, L100.0100 ####[facility] [address] [place], [address] MCHC (RBC) [Mass/Vol] 33.9 g/dL Normal 32-36 [facility] Comment on above: Performed By: #### L 500.4050, L501.2450, L100.0100 ####[facility] [address] [place], [address] MCV (RBC) [Entitic vol] 82.3 fL Normal 81-99 [facility] Comment on above: Performed By: #### L 500.4050, L501.2450, L100.0100 ####[facility] [address] [place], [address] Monocytes/100 WBC (Bld) 3.3 % Normal 0-10 [facility] Comment on above: Performed By: #### L 500.4050, L501.2450, L100.0100 ####[facility] [address] [place], [address] Neutrophils/100 WBC (Bld) 89.8 % High 47-70 [facility] Comment on above: Performed By: #### L 500.4050, L501.2450, L100.0100 ####[facility] [address] [place], [address] Nucleated RBC (Bld) [#/Vol] 0 10*3/uL Normal 0-5 [facility] Comment on above: Performed By: #### L 500.4050, L501.2450, L100.0100 ####[facility] [address] [place], [address] Platelet mean volume (Bld) [Entitic vol] 9.6 fL Normal 6.2-12.0 [facility] Comment on above: Performed By: #### L 500.4050, L501.2450, L100.0100 ####[facility] [address] [place], [address] Platelets (Bld) [#/Vol] 313 10*3/uL Normal 150-450 [facility] Comment on above: Performed By: #### L 500.4050, L501.2450, L100.0100 ####[facility] [address] [place], [address] RBC (Bld) [#/Vol] 4.62 10*6/uL Normal 4.2-5.4 [facility] Comment on above: Performed By: #### L 500.4050, L501.2450, L100.0100 ####[facility] [address] [place], [address] RDW SD 39.4 fl Normal 35.1-43.9 [facility] Comment on above: Performed By: #### L 500.4050, L501.2450, L100.0100 ####[facility] [address] [place], [address] WBC (Bld) [#/Vol] 15.7 10*3/uL High 4.4-11.0 [facility] Comment on above: Performed By: #### L 500.4050, L501.2450, L100.0100 ####[facility] [address], [address] Calcium [Mass/Vol]Ordered By : Nina Richardson on 09-29-2024 Serum or plasma calcium measurement (mass/volume) 9.5 mg/dL 7.6-11.0 [facility] Carbon dioxide, total [Moles /volume] in Central venous bloodOrdered By: Nina Richardson on 09-29-2024 CO2 [Moles/Vol] 23.7 mmol/L 21.0-32.0 [facility] Carbon dioxide, total [Moles/volume] in Central venous blood 23.7 mmol/L 21.0-32.0 [facility] Chloride assayOrdered By: Es Richardson on 09-29-2024 Chloride [Moles/Vol] 97 mmol/L Low 98-108 [facility] Chloride assay 97 mmol/L Low 98-108 [facility] Clarity (U)Ordered By: Tara Richardson on 09-29-2024 Urine clarity Clear Clear [facility] Color (U)Ordered By: Billy Livingston on 09-29-2024 Urine color determination Yellow Yellow [facility] Comprehensive Metabolic Prof ilon 09-29-2024 Albumin [Mass/Vol] 3.7 g/dL Normal 3.5-5.0 [facility] Comment on above: Performed By: #### L 500.4050, L501.2450, L100.0100 ####[facility] [address] [place], [address] Albumin/Globulin [Mass ratio] 1.0 {ratio} Normal 0.9-2.4 [facility] Comment on above: Performed By: #### L 500.4050, L501.2450, L100.0100 ####[facility] [address] [place], [address] ALK PHOS 179 U/L High 35-104 [facility] Comment on above: Performed By: #### L 500.4050, L501.2450, L100.0100 ####[facility] [address] [place], [address] ALT [Catalytic activity/Vol] 12 U/L Normal <=34 [facility] Comment on above: Performed By: #### L 500.4050, L501.2450, L100.0100 ####[facility] [address] [place], [address] AST [Catalytic activity/Vol] 19 U/L Normal <=31 [facility] Comment on above: Performed By: #### L 500.4050, L501.2450, L100.0100 ####[facility] [address] [place], [address] Bilirubin [Mass/Vol] 0.90 mg/dL Normal 0.00-1.30 [facility] Comment on above: Performed By: #### L 500.4050, L501.2450, L100.0100 ####[facility] [address] [place], [address] BUN/CRE 20.5 RATIO High 10-20 [facility] Comment on above: Performed By: #### L 500.4050, L501.2450, L100.0100 ####[facility] [address] [place], [address] Calcium [Mass/Vol] 9.5 mg/dL Normal 7.6-11.0 [facility] Comment on above: Performed By: #### L 500.4050, L501.2450, L100.0100 ####[facility] [address] [place], [address] Chloride [Moles/Vol] 97 mmol/L Low 98-108 [facility] Comment on above: Performed By: #### L 500.4050, L501.2450, L100.0100 ####[facility] [address] [place], [address] CO2 [Moles/Vol] 23.7 mmol/L Normal 21.0-32.0 [facility] Comment on above: Performed By: #### L 500.4050, L501.2450, L100.0100 ####[facility] [address] [place], [address] Creatinine [Mass/Vol] 0.68 mg/dL Low 0.70-1.20 [facility] Comment on above: Performed By: #### L 500.4050, L501.2450, L100.0100 ####[facility] [address] [place], [address] ECRCL 105.00 ml/min Normal 50-250 [facility] Comment on above: Performed By: #### L 500.4050, L501.2450, L100.0100 ####[facility] [address] [place], [address] GAP 15 Normal 5-15 [facility] Comment on above: Performed By: #### L 500.4050, L501.2450, L100.0100 ####[facility] [address] [place], [address] GFR/1.73 sq M.predicted among non-blacks MDRD (S/P/Bld) [Vol rate/Area] 104 mL/min/{1.73_m2} Normal >60 [facility] Comment on above: Result Comment: mL/m in/1.73m2 CKD-EPI Creatinine Equation (2020) Performed By: #### L 500.4050, L501.2450, L100.0100 ####[facility] [address] [place], [address] Globulin (S) [Mass/Vol] 3.8 g/dL Normal 2.2-4.2 [facility] Comment on above: Performed By: #### L 500.4050, L501.2450, L100.0100 ####[facility] [address] [place], [address] Glucose [Mass/Vol] 442 mg/dL High 70-99 [facility] Comment on above: Performed By: #### L 500.4050, L501.2450, L100.0100 ####[facility] [address] [place], [address] Potassium [Moles/Vol] 3.5 mmol/L Normal 3.3-5.1 [facility] Comment on above: Performed By: #### L 500.4050, L501.2450, L100.0100 ####[facility] [address] [place], [address] Sodium [Moles/Vol] 135 mmol/L Normal 133-145 [facility] Comment on above: Performed By: #### L 500.4050, L501.2450, L100.0100 ####[facility] [address] [place], [address] T PROT 7.5 g/dL Normal 5.9-8.4 [facility] Comment on above: Performed By: #### L 500.4050, L501.2450, L100.0100 ####[facility] [address] [place], [address] Urea nitrogen [Mass/Vol] 14 mg/dL Normal 4-19 [facility] Comment on above: Performed By: #### L 500.4050, L501.2450, L100.0100 ####[facility] [address] [place], [address] Creatinine [Mass/Vol]Ordered By: Nina Richardson on 09-29-2024 Serum creatinine measurement (mass/volume) 0.68 mg/dL Low 0.70-1.20 [facility] Emergency Department Summary on 09-29-2024 Emergency Department Summary Normal [facility] Eosinophil percentageOrdered By: Nina Richardson on 09-29-2024 Eosinophils/100 WBC (Bld) 0.1 % 0-5 [facility] Eosinophil percentage 0.1 % 0-5 [facility] Erythrocyte distribution wid th (RBC) [Ratio]Ordered By: Nina Richardson on 09-29-2024 Erythrocyte distribution width ratio 13.2 % 11.6-14.6 [facility] Erythrocyte distribution width standard deviation 39.4 fl 35.1-43.9 [facility] Erythrocyte distribution wid th ratioOrdered By: Nina Richardson on 09-29-2024 Erythrocyte distribution width (RBC) [Ratio] 13.2 % 11.6-14.6 [facility] Erythrocyte distribution wid th standard deviationOrdered By: Nina Richardson on 09-29-2024 Erythrocyte distribution width (RBC) [Ratio] 39.4 fl 35.1-43.9 [facility] Estimation of creatinine sylvain aranceOrdered By: Nina Richardson on 09-29-2024 Estimation of creatinine clearance 105.00 ml/min 50-250 [facility] GFR/1.73 sq M.predicted estephanie g non-blacks MDRD (S/P/Bld) [Vol rate/Area]Ordered By: Nina Richardson on 09-29-2024 Glomerular filtration rate (GFR) estimation/1.73 sq m using serum, plasma, or whole b 104 >60 [facility] Glomerular filtration rate ( GFR) estimation/1.73 sq m using serum, plasma, or whole bOrdered By: Nina Richardson on 09-29-2024 GFR/1.73 sq M.predicted among non-blacks MDRD (S/P/Bld) [Vol rate/Area] 104 mL/min/{1.73_m2} >60 [facility] Glucose Ql (U)Ordered By: Es Richardson on 09-29-2024 Urine glucose detection 1000 mg/dl High Normal [facility] Glucose [Mass/Vol]Ordered By : Nina Richardson on 09-29-2024 Serum glucose measurement (mass/volume) 442 mg/dL High 70-99 [facility] Glucose measurement at bedsi deOrdered By: Zack Card on 09-29-2024 Glucose [Mass/Vol] 382 mg/dL High 74-106 [facility] Glucose measurement at bedside 382 mg/dL High 74-106 [facility] Hematocrit Auto (Bld) [Volum e fraction]Ordered By: Nina Richardson on 09-29-2024 Hematocrit (Bld) [Volume fraction] 38.0 % 37-47 [facility] Automated blood hematocrit (percentage) 38.0 % 37-47 [facility] Hemoglobin measurementOrdere d By: Nina Richardson on 09-29-2024 Hemoglobin (Bld) [Mass/Vol] 12.9 g/dL 12.0-15.0 [facility] Hemoglobin measurement 12.9 g/dL 12.0-15.0 [facility] Immature granulocytes/100 WB C Auto (Bld)Ordered By: Nina Richardson on 09-29-2024 Immature granulocytes/100 WBC (Bld) 0.600 % 0.0-0.9 [facility] Automated immature granulocyte percentage 0.600 % 0.0-0.9 [facility] Ketones Test strip Ql (U)Ord ered By: Nina Richardson on 09-29-2024 Ketones Ql (U) 15 mg/dl High Negative [facility] Urine ketones detection by test strip 15 mg/dl High Negative [facility] Lipaseon 09-29-2024 Lipase [Catalytic activity/Vol] 30 U/L Normal 13-75 [facility] Comment on above: Result Comment: Gege edgar note:LIPASE revised reference range effective 22.New Lipase methodology. Expected to produce lower valuesthan the previous assay method.NEW Reference Range: 13 - 75 U/L Performed By: #### L 500.4050, L501.2450, L100.0100 ####[facility] [address] [place], [address] Lipase measurementOrdered By : Nina Richardson on 09-29-2024 Lipase measurement 30 U/L 13-75 [facility] Lymphocytes Auto (Unsp spec) [#/Vol]Ordered By: Nina Richardson on 09-29-2024 Absolute lymphocyte count 0.91 X10^3/uL 0.83-4.51 [facility] Lymphocytes/100 WBC Auto (Un sp spec)Ordered By: Nina Richardson on 09-29-2024 Automated lymphocyte count as percentage of total leukocytes 5.8 % Low 19-41 [facility] MCV (RBC) [Entitic vol]Order ed By: Nina Richardson on 09-29-2024 MCV (mean corpuscular volume) determination 82.3 fL 81-99 [facility] MCV (mean corpuscular volume ) determinationOrdered By: Nina Richardson on 09-29-2024 MCV (RBC) [Entitic vol] 82.3 fL 81-99 [facility] Mean corpuscular hemoglobin (MCH) determinationOrdered By: Nina Richardson on 09-29-2024 MCH (RBC) [Entitic mass] 27.9 pg 27.0-32.0 [facility] Mean corpuscular hemoglobin (MCH) determination 27.9 pg 27.0-32.0 [facility] Mean corpuscular hemoglobin concentration (MCHC) determinationOrdered By: Nina Richardson on 09-29-2024 Mean corpuscular hemoglobin concentration (MCHC) determination 33.9 g/dL 32-36 [facility] Mean platelet volume determi nationOrdered By: Nina Richardson on 09-29-2024 Mean platelet volume determination 9.6 fl 6.2-12.0 [facility] Monocyte percentageOrdered B y: Nina Richardson on 09-29-2024 Monocytes/100 WBC (Bld) 3.3 % 0-10 [facility] Monocyte percentage 3.3 % 0-10 [facility] Mucus LM Ql (Urine sed)Order ed By: Nina Richardson on 09-29-2024 Mucus Ql (Urine sed) 0 SEEN /hpf [facility] Neutrophil percentageOrdered By: Nina Richardson on 09-29-2024 Neutrophils/100 WBC (Bld) 89.8 % High 47-70 [facility] Neutrophil percentage 89.8 % High 47-70 [facility] Nitrite Test strip Ql (U)Ord ered By: Nina Richardson on 09-29-2024 Nitrite Ql (U) Negative Negative [facility] No Panel InformationOrdered By: Nina Richardson on 09-29-2024 19 U/L <32 [facility] Nucleated red blood cell per centageOrdered By: Nina Richardson on 09-29-2024 Nucleated red blood cell percentage 0 % 0-5 [facility] Platelet countOrdered By: Es Richardson on 09-29-2024 Platelets (Bld) [#/Vol] 313 10*3/uL 150-450 [facility] Platelet count 313 K/mm3 150-450 [facility] Potassium (Unsp spec) [Mass/ Vol]Ordered By: Nina Richardson on 09-29-2024 Potassium measurement (mass/volume) 3.5 mmol/L 3.3-5.1 [facility] Potassium measurement (mass/ volume)Ordered By: Nina Richardson on 09-29-2024 Potassium (Unsp spec) [Mass/Vol] 3.5 mmol/L 3.3-5.1 [facility] Protein Test strip Ql (U)Ord ered By: Nina Richardson on 09-29-2024 Protein Ql (U) 100 mg/dl High Negative [facility] Urine protein assay by test strip, semi-quantitative 100 mg/dl High Negative [facility] RBC Auto (Bld) [#/Vol]Ordere d By: Nina Richardson on 09-29-2024 RBC (Bld) [#/Vol] 4.62 10*6/uL 4.2-5.4 [facility] Automated blood erythrocyte count 4.62 M/mm3 4.2-5.4 [facility] Serum creatinine measurement (mass/volume)Ordered By: Nina Richardson on 09-29-2024 Creatinine [Mass/Vol] 0.68 mg/dL Low 0.70-1.20 [facility] Serum globulin measurementOr dered By: Nina Richardson on 09-29-2024 Globulin (S) [Mass/Vol] 3.8 g/dL 2.2-4.2 [facility] Serum globulin measurement 3.8 g/dL 2.2-4.2 [facility] Serum glucose measurement (m ass/volume)Ordered By: Nina Richardson on 09-29-2024 Glucose [Mass/Vol] 442 mg/dL High 70-99 [facility] Serum or plasma alanine hamilton otransferase (ALT) measurementOrdered By: Nina Richardson on 09-29-2024 ALT [Catalytic activity/Vol] 12 U/L <35 [facility] Serum or plasma albumin xiomara urement (mass/volume)Ordered By: Nina Richardson on 09-29-2024 Albumin [Mass/Vol] 3.7 g/dL 3.5-5.0 [facility] Serum or plasma albumin/glob ulin mass ratioOrdered By: Nina Richardson on 09-29-2024 Albumin/Globulin [Mass ratio] 1.0 {ratio} 0.9-2.4 [facility] Serum or plasma alkaline sabiha sphatase measurementOrdered By: Nina Richardson on 09-29-2024 ALP [Catalytic activity/Vol] 179 U/L High 35-104 [facility] Serum or plasma calcium xiomara urement (mass/volume)Ordered By: Nina Richardson on 09-29-2024 Calcium [Mass/Vol] 9.5 mg/dL 7.6-11.0 [facility] Serum or plasma urea nitroge n measurement (mass/volume)Ordered By: Nina Richardson on 09-29-2024 Urea nitrogen [Mass/Vol] 14 mg/dL 4-19 [facility] Sodium levelOrdered By: Carissa Richardson on 09-29-2024 Sodium [Moles/Vol] 135 mmol/L 133-145 [facility] Sodium level 135 mmol/L 133-145 [facility] Specific gravity (U) [Rel de nsity]Ordered By: Nina Richardson on 09-29-2024 Urine specific gravity measurement 1.010 1.002-1.03 0 [facility] Squamous epithelial cells de tection in urine sediment by light microscopyOrdered By: Nina Richardson on 09-29-2024 Epithelial cells.squamous LM Ql (Urine sed) 0-5 SEEN /hpf 5-10 [facility] Total proteinOrdered By: Yamil Richardson on 09-29-2024 Protein [Mass/Vol] 7.5 g/dL 5.9-8.4 [facility] Total protein 7.5 g/dL 5.9-8.4 [facility] Urea nitrogen [Mass/Vol]Orde red By: Nina Richardson on 09-29-2024 Serum or plasma urea nitrogen measurement (mass/volume) 14 mg/dL 4-19 [facility] Urinalysis, Completeon 09-29 EPI,SQUAMOUS 0-5 SEEN Normal 5-10 [facility] Comment on above: Order Comment: CLEAN CATCH Performed By: #### L 400.0001 ####[facility] [address] [facility] [address] RBC 0-5 SEEN Normal 0-5 [facility] Comment on above: Order Comment: CLEAN CATCH Performed By: #### L 400.0001 ####[facility] [address] [place], [address] WBC 0-5 SEEN Normal 0-5 [facility] Comment on above: Order Comment: CLEAN CATCH Performed By: #### L 400.0001 ####[facility] [address] [place], [address] BACTERIA 0 SEEN Normal None Seen [facility] Comment on above: Order Comment: CLEAN CATCH Performed By: #### L 400.0001 ####[facility] [address] [place], [address] Mucus Ql (Urine sed) 0 SEEN Normal [facility] Comment on above: Order Comment: CLEAN CATCH Performed By: #### L 400.0001 ####[facility] [address] [place], [address] Urine blood detectionOrdered By: Nina Richardson on 09-29-2024 Urine blood detection 25 /ul High Negative [facility] Urine clarityOrdered By: Yamil Richardson on 09-29-2024 Clarity (U) Clear Clear [facility] Urine color determinationOrd ered By: Nina Richardson on 09-29-2024 Color (U) Yellow Yellow [facility] Urine glucose detectionOrder ed By: Nina Richardson on 09-29-2024 Glucose Ql (U) 1000 mg/dl High Normal [facility] Urine leukocyte esterase det ection by dipstickOrdered By: Nina Richardson on 09-29-2024 Leukocyte esterase Test strip Ql (U) Negative Negative [facility] Urine pHOrdered By: Martin Richardson on 09-29-2024 pH (U) 7.0 [pH] 5.0 - 8.0 [facility] Urine sediment bacteria coun t by microscopy (number/high power field)Ordered By: Nina Richardson on 09-29-2024 Bacteria LM.HPF (Urine sed) [#/Area] 0 /[HPF] None Seen [facility] Urine sediment bacteria count by microscopy (number/high power field) 0 SEEN /hpf [facility] Urine specific gravity measu rementOrdered By: Nina Richardson on 09-29-2024 Specific gravity (U) [Rel density] 1.010 1.002-1.03 0 [facility] Urine total bilirubin detect ion by test stripOrdered By: Nina Richardson on 09-29-2024 Urine total bilirubin detection by test strip Negative Negative [facility] Urine urobilinogen measureme ntOrdered By: Nina Richardson on 09-29-2024 Urobilinogen Ql (U) Normal mg/dl Normal [facility] Urobilinogen Ql (U)Ordered B y: Nina Richardson on 09-29-2024 Urine urobilinogen measurement Normal mg/dl Normal [facility] White blood cell (WBC) count Ordered By: Nina Richardson on 09-29-2024 WBC (Bld) [#/Vol] 15.7 10*3/uL High 4.4-11.0 [facility] White blood cell (WBC) count 15.7 K/mm3 High 4.4-11.0 [facility] White blood cell countOrdere d By: Nina Richardson on 09-29-2024 White blood cell count 0-5 SEEN /hpf 0-5 [facility] White blood cell count 0-5 SEEN /hpf 5-10 [facility] pH (U)Ordered By: Nina Richardson on 09-29-2024 Urine pH 7.0 5.0 - 8.0 [facility] ALP [Catalytic activity/Vol] Ordered By: Riccardo Hillman on 09-21-2024 Serum or plasma alkaline phosphatase measurement 128 U/L High 35-104 [facility] ALT [Catalytic activity/Vol] Ordered By: Riccardo Hillman on 09-21-2024 Serum or plasma alanine aminotransferase (ALT) measurement 13 U/L <35 [facility] Absolute lymphocyte countOrd ered By: Nina Richardson on 09-21-2024 Lymphocytes Auto (Unsp spec) [#/Vol] 1.03 10*3/uL 0.83-4.51 [facility] Absolute neutrophil countOrd ered By: Nina Richardson on 09-21-2024 Absolute neutrophil count 8.9 X10^3/uL High 2.0-7.7 [facility] Albumin [Mass/Vol]Ordered By : Riccardo Hillman on 09-21-2024 Serum or plasma albumin measurement (mass/volume) 3.6 g/dL 3.5-5.0 [facility] Albumin/Globulin [Mass ratio ]Ordered By: Riccardo Hillman on 09-21-2024 Serum or plasma albumin/globulin mass ratio 1.1 RATIO 0.9-2.4 [facility] Anion gap [Moles/Vol]Ordered By: Riccardo Hillman on 09-21-2024 Anion gap in Serum or Plasma 11 5-15 [facility] Anion gap in Serum or Plasma Ordered By: Riccardo Hillman on 09-21-2024 Anion gap [Moles/Vol] 11 mmol/L 5-15 [facility] Automated lymphocyte count a s percentage of total leukocytesOrdered By: Nina Richardson on 09-21-2024 Lymphocytes/100 WBC Auto (Unsp spec) 9.8 % Low 19-41 [facility] BUN/creatinine ratioOrdered By: Riccardo Hillman on 09-21-2024 Urea nitrogen/Creatinine [Mass ratio] 13.7 mg/mg 10-20 [facility] BUN/creatinine ratio 13.7 RATIO 10-20 [facility] Basophil percentageOrdered B y: Nina Richardson on 09-21-2024 Basophils/100 WBC (Bld) 0.4 % 0-1 [facility] Basophil percentage 0.4 % 0-1 [facility] Bilirubin Test strip Ql (U)O rdered By: Nina Richardson on 09-21-2024 Bilirubin Ql (U) Negative Negative [facility] Bilirubin, totalOrdered By: Riccardo Hillman on 09-21-2024 Bilirubin [Mass/Vol] 1.08 mg/dL 0.00-1.30 [facility] Bilirubin, total 1.08 mg/dL 0.00-1.30 [facility] CBC W/Diff, Automatedon - Absolute Lymph 1.03 X10 3/uL Normal 0.83-4.51 [facility] Comment on above: Performed By: #### L 100.0100, L500.4050 ####[facility] [address] [place], [address] Absolute Neut 8.9 X10 3/uL High 2.0-7.7 [facility] Comment on above: Performed By: #### L 100.0100, L500.4050 ####[facility] [address] [place], [address] Basophils/100 WBC (Bld) 0.4 % Normal 0-1 [facility] Comment on above: Performed By: #### L 100.0100, L500.4050 ####[facility] [address] [place], [address] Eosinophils/100 WBC (Bld) 0.6 % Normal 0-5 [facility] Comment on above: Performed By: #### L 100.0100, L500.4050 ####[facility] [address] [place], [address] Erythrocyte distribution width (RBC) [Ratio] 13.0 % Normal 11.6-14.6 [facility] Comment on above: Performed By: #### L 100.0100, L500.4050 ####[facility] [address] [place], [address] Hematocrit (Bld) [Volume fraction] 37.7 % Normal 37-47 [facility] Comment on above: Performed By: #### L 100.0100, L500.4050 ####[facility] [address] [place], [address] Hemoglobin (Bld) [Mass/Vol] 13.0 g/dL Normal 12.0-15.0 [facility] Comment on above: Performed By: #### L 100.0100, L500.4050 ####[facility] [address] [place], [address] IG% 0.300 Normal 0.0-0.9 [facility] Comment on above: Result Comment: IG% - Immature Granulocytes (promyelocytes, myelocytes andmetamyelocytes) > 1% indicates that a LEFT SHIFT is Present. Performed By: #### L 100.0100, L500.4050 ####[facility] [address] [place], [address] Lymphocytes/100 WBC (Bld) 9.8 % Low 19-41 [facility] Comment on above: Performed By: #### L 100.0100, L500.4050 ####[facility] [address] [place], [address] MCH (RBC) [Entitic mass] 29.0 pg Normal 27.0-32.0 [facility] Comment on above: Performed By: #### L 100.0100, L500.4050 ####[facility] [address] [place], [address] MCHC (RBC) [Mass/Vol] 34.5 g/dL Normal 32-36 [facility] Comment on above: Performed By: #### L 100.0100, L500.4050 ####[facility] [address] [place], [address] MCV (RBC) [Entitic vol] 84.0 fL Normal 81-99 [facility] Comment on above: Performed By: #### L 100.0100, L500.4050 ####[facility] [address] [place], [address] Monocytes/100 WBC (Bld) 4.3 % Normal 0-10 [facility] Comment on above: Performed By: #### L 100.0100, L500.4050 ####[facility] [address] [place], [address] Neutrophils/100 WBC (Bld) 84.6 % High 47-70 [facility] Comment on above: Performed By: #### L 100.0100, L500.4050 ####[facility] [address] [place], [address] Nucleated RBC (Bld) [#/Vol] 0 10*3/uL Normal 0-5 [facility] Comment on above: Performed By: #### L 100.0100, L500.4050 ####[facility] [address] [place], [address] Platelet mean volume (Bld) [Entitic vol] 9.3 fL Normal 6.2-12.0 [facility] Comment on above: Performed By: #### L 100.0100, L500.4050 ####[facility] [address] [place], [address] Platelets (Bld) [#/Vol] 275 10*3/uL Normal 150-450 [facility] Comment on above: Performed By: #### L 100.0100, L500.4050 ####[facility] [address] [place], [address] RBC (Bld) [#/Vol] 4.49 10*6/uL Normal 4.2-5.4 [facility] Comment on above: Performed By: #### L 100.0100, L500.4050 ####[facility] [address] [place], [address] RDW SD 39.7 fl Normal 35.1-43.9 [facility] Comment on above: Performed By: #### L 100.0100, L500.4050 ####[facility] [address] [place], [address] WBC (Bld) [#/Vol] 10.5 10*3/uL Normal 4.4-11.0 [facility] Comment on above: Performed By: #### L 100.0100, L500.4050 ####[facility] [address] [place], [address] Calcium [Mass/Vol]Ordered By : Riccardo Hillman on 09-21-2024 Serum or plasma calcium measurement (mass/volume) 9.3 mg/dL 7.6-11.0 [facility] Carbon dioxide, total [Moles /volume] in Central venous bloodOrdered By: Riccardo Hillman on 09-21-2024 CO2 [Moles/Vol] 25.8 mmol/L 21.0-32.0 [facility] Carbon dioxide, total [Moles/volume] in Central venous blood 25.8 mmol/L 21.0-32.0 [facility] Chloride assayOrdered By: Bertram Hillman on 09-21-2024 Chloride [Moles/Vol] 95 mmol/L Low 98-108 [facility] Chloride assay 95 mmol/L Low 98-108 [facility] Clarity (U)Ordered By: Tara Richardson on 09-21-2024 Urine clarity Clear Clear [facility] Color (U)Ordered By: Billy Livingston on 09-21-2024 Urine color determination Yellow Yellow [facility] Comprehensive Metabolic Prof ilon 09-21-2024 Albumin [Mass/Vol] 3.6 g/dL Normal 3.5-5.0 [facility] Comment on above: Order Comment: REDRA W. PREVIOUS SPECIMEN REJECTED DUE TOSPECIMEN BEING HEMOLYZED. 09/21/245 Jevon Vergarar. Performed By: #### L 500.4050, L501.2450 ####[facility] [address] [place], [address] Albumin/Globulin [Mass ratio] 1.1 {ratio} Normal 0.9-2.4 [facility] Comment on above: Order Comment: REDRA W. PREVIOUS SPECIMEN REJECTED DUE TOSPECIMEN BEING HEMOLYZED. 09/21/241314 Jevon Vergarar. Performed By: #### L 500.4050, L501.2450 ####[facility] [address] [place], [address] ALK PHOS 128 U/L High 35-104 [facility] Comment on above: Order Comment: REDRA W. PREVIOUS SPECIMEN REJECTED DUE TOSPECIMEN BEING HEMOLYZED. 09/21/241314 Jevon Vergarar. Performed By: #### L 500.4050, L501.2450 ####[facility] [address] [place], [address] ALT [Catalytic activity/Vol] 13 U/L Normal <=34 [facility] Comment on above: Order Comment: REDRA W. PREVIOUS SPECIMEN REJECTED DUE TOSPECIMEN BEING HEMOLYZED. 09/21/241314 Jevon Vergarar. Performed By: #### L 500.4050, L501.2450 ####[facility] [address] [place], [address] AST [Catalytic activity/Vol] 19 U/L Normal <=31 [facility] Comment on above: Order Comment: REDRA W. PREVIOUS SPECIMEN REJECTED DUE TOSPECIMEN BEING HEMOLYZED. 09/21/245 Jevon Vergarar. Performed By: #### L 500.4050, L501.2450 ####[facility] [address] [place], [address] Bilirubin [Mass/Vol] 1.08 mg/dL Normal 0.00-1.30 [facility] Comment on above: Order Comment: REDRA W. PREVIOUS SPECIMEN REJECTED DUE TOSPECIMEN BEING HEMOLYZED. 09/21/241314 Jevon Angeles. Performed By: #### L 500.4050, L501.2450 ####[facility] [address] [place], [address] BUN/CRE 13.7 RATIO Normal 10-20 [facility] Comment on above: Order Comment: REDRA W. PREVIOUS SPECIMEN REJECTED DUE TOSPECIMEN BEING HEMOLYZED. 09/21/241314 Jevon Angeles. Performed By: #### L 500.4050, L501.2450 ####[facility] [address] [place], [address] Calcium [Mass/Vol] 9.3 mg/dL Normal 7.6-11.0 [facility] Comment on above: Order Comment: REDRA W. PREVIOUS SPECIMEN REJECTED DUE TOSPECIMEN BEING HEMOLYZED. 09/21/241314 Jevon Angeles. Performed By: #### L 500.4050, L501.2450 ####[facility] [facility] [address] [place], [address] Chloride [Moles/Vol] 95 mmol/L Low 98-108 [facility] Comment on above: Order Comment: REDRA W. PREVIOUS SPECIMEN REJECTED DUE TOSPECIMEN BEING HEMOLYZED. 09/21/241314 Jevon Squires Performed By: #### L 500.4050, L501.2450 ####[facility] [address] [place], [address] CO2 [Moles/Vol] 25.8 mmol/L Normal 21.0-32.0 [facility] Comment on above: Order Comment: REDRA W. PREVIOUS SPECIMEN REJECTED DUE TOSPECIMEN BEING HEMOLYZED. 09/21/241314 Jevon Angeles. Performed By: #### L 500.4050, L501.2450 ####[facility] [address] [place], [address] Creatinine [Mass/Vol] 0.67 mg/dL Low 0.70-1.20 [facility] Comment on above: Order Comment: REDRA W. PREVIOUS SPECIMEN REJECTED DUE TOSPECIMEN BEING HEMOLYZED. 09/21/24 1315 Jevon Angeles. Performed By: #### L 500.4050, L501.2450 ####[facility] [address] [place], [address] ECRCL 107.12 ml/min Normal 50-250 [facility] Comment on above: Order Comment: REDRA W. PREVIOUS SPECIMEN REJECTED DUE TOSPECIMEN BEING HEMOLYZED. 09/21/245 Jevon Squires Performed By: #### L 500.4050, L501.2450 ####[facility] [address] [place], [address] GAP 11 Normal 5-15 [facility] Comment on above: Order Comment: REDRA W. PREVIOUS SPECIMEN REJECTED DUE TOSPECIMEN BEING HEMOLYZED. 09/21/245 Jevno Squires Performed By: #### L 500.4050, L501.2450 ####[facility] [address] [place], [address] GFR/1.73 sq M.predicted among non-blacks MDRD (S/P/Bld) [Vol rate/Area] 105 mL/min/{1.73_m2} Normal >60 [facility] Comment on above: Order Comment: REDRA W. PREVIOUS SPECIMEN REJECTED DUE TOSPECIMEN BEING HEMOLYZED. 09/21/245 Jevon Squires Result Comment: mL/m in/1.73m2 CKD-EPI Creatinine Equation (2020) Performed By: #### L 500.4050, L501.2450 ####[facility] [address] [place], [address] Globulin (S) [Mass/Vol] 3.3 g/dL Normal 2.2-4.2 [facility] Comment on above: Order Comment: REDRA W. PREVIOUS SPECIMEN REJECTED DUE TOSPECIMEN BEING HEMOLYZED. 09/21/241314 Jevon Angeles. Performed By: #### L 500.4050, L501.2450 ####[facility] [address] [place], [address] Glucose [Mass/Vol] 336 mg/dL High 70-99 [facility] Comment on above: Order Comment: REDRA W. PREVIOUS SPECIMEN REJECTED DUE TOSPECIMEN BEING HEMOLYZED. 09/21/241314 Jevon Angeles. Performed By: #### L 500.4050, L501.2450 ####[facility] [address] [place], [address] Potassium [Moles/Vol] 3.3 mmol/L Normal 3.3-5.1 [facility] Comment on above: Order Comment: REDRA W. PREVIOUS SPECIMEN REJECTED DUE TOSPECIMEN BEING HEMOLYZED. 09/21/241314 Jevon Angeles. Performed By: #### L 500.4050, L501.2450 ####[facility] [address] [place], [address] Sodium [Moles/Vol] 132 mmol/L Low 133-145 [facility] Comment on above: Order Comment: REDRA W. PREVIOUS SPECIMEN REJECTED DUE TOSPECIMEN BEING HEMOLYZED. 09/21/241314 Jevon Squires Performed By: #### L 500.4050, L501.2450 ####[facility] [address] [place], [address] T PROT 6.9 g/dL Normal 5.9-8.4 [facility] Comment on above: Order Comment: REDRA W. PREVIOUS SPECIMEN REJECTED DUE TOSPECIMEN BEING HEMOLYZED. 09/21/241314 Jevon R Stoner. Performed By: #### L 500.4050, L501.2450 ####[facility] [address] [place], [address] Urea nitrogen [Mass/Vol] 9 mg/dL Normal 4-19 [facility] Comment on above: Order Comment: REDRA W. PREVIOUS SPECIMEN REJECTED DUE TOSPECIMEN BEING HEMOLYZED. 09/21/24 1315 Jevon Vergarar. Performed By: #### L 500.4050, L501.2450 ####[facility] [address] [place], [address] ALB Normal 3.5-5.0 [facility] Comment on above: Result Comment: This specimen has been REJECTED due to Laboratory criteria:Hemolyzed.ED STAFF has been notified of need of recollection.09/21/24 1314 Jevon Vergarar Performed By: #### L 100.0100, L500.4050 ####[facility] [address] [place], [address] ALK PHOS Normal 35-104 [facility] Comment on above: Result Comment: This specimen has been REJECTED due to Laboratory criteria:Hemolyzed.ED STAFF has been notified of need of recollection.09/21/24 1314 Jevon Vergarar Performed By: #### L 100.0100, L500.4050 ####[facility] [address] [place], [address] ALT Normal <=34 [facility] Comment on above: Result Comment: This specimen has been REJECTED due to Laboratory criteria:Hemolyzed.ED STAFF has been notified of need of recollection.09/21/24 1314 Jevon Vergarar Performed By: #### L 100.0100, L500.4050 ####[facility] [address] [place], [address] AST Normal <=31 [facility] Comment on above: Result Comment: This specimen has been REJECTED due to Laboratory criteria:Hemolyzed.ED STAFF has been notified of need of recollection.09/21/24 1314 Jevon R Stoner Performed By: #### L 100.0100, L500.4050 ####[facility] [address] [place], [address] BUN Normal 4-19 [facility] Comment on above: Result Comment: This specimen has been REJECTED due to Laboratory criteria:Hemolyzed.ED STAFF has been notified of need of recollection.09/21/244 Jevon R Stoner Performed By: #### L 100.0100, L500.4050 ####[facility] [address] [place], [address] BUN/CRE Normal 10-20 [facility] Comment on above: Result Comment: This specimen has been REJECTED due to Laboratory criteria:Hemolyzed.ED STAFF has been notified of need of recollection.09/21/244 Jevon R Stoner Performed By: #### L 100.0100, L500.4050 ####[facility] [address] [place], [address] Calcium Normal 7.6-11.0 [facility] Comment on above: Result Comment: This specimen has been REJECTED due to Laboratory criteria:Hemolyzed.ED STAFF has been notified of need of recollection.09/21/241313 Jevon R Stoner Performed By: #### L 100.0100, L500.4050 ####[facility] [address] [place], [address] CL Normal 98-108 [facility] Comment on above: Result Comment: This specimen has been REJECTED due to Laboratory criteria:Hemolyzed.ED STAFF has been notified of need of recollection.09/21/241313 Jevon R Stoner Performed By: #### L 100.0100, L500.4050 ####[facility] [address] [place], [address] CO2 Normal 21.0-32.0 [facility] Comment on above: Result Comment: This specimen has been REJECTED due to Laboratory criteria:Hemolyzed.ED STAFF has been notified of need of recollection.09/21/24 1314 Jevon R Stoner Performed By: #### L 100.0100, L500.4050 ####[facility] [address] [place], [address] CREAT,SERUM Normal 0.70-1.20 [facility] Comment on above: Result Comment: This specimen has been REJECTED due to Laboratory criteria:Hemolyzed.ED STAFF has been notified of need of recollection.09/21/24 1314 Jevon R Stoner Performed By: #### L 100.0100, L500.4050 ####[facility] [address] [place], [address] eGFR Normal >60 [facility] Comment on above: Result Comment: This specimen has been REJECTED due to Laboratory criteria:Hemolyzed.ED STAFF has been notified of need of recollection.09/21/244 Jevon R Stoner Performed By: #### L 100.0100, L500.4050 ####[facility] [address] [place], [address] GAP Normal 5-15 [facility] Comment on above: Result Comment: This specimen has been REJECTED due to Laboratory criteria:Hemolyzed.ED STAFF has been notified of need of recollection.09/21/24 1314 Jevon R Stoner Performed By: #### L 100.0100, L500.4050 ####[facility] [address] [place], [address] GLU Normal 70-99 [facility] Comment on above: Result Comment: This specimen has been REJECTED due to Laboratory criteria:Hemolyzed.ED STAFF has been notified of need of recollection.09/21/24 1314 Jevon R Stoner Performed By: #### L 100.0100, L500.4050 ####[facility] [address] [place], [address] Potassium Normal 3.3-5.1 [facility] Comment on above: Result Comment: This specimen has been REJECTED due to Laboratory criteria:Hemolyzed.ED STAFF has been notified of need of recollection.09/21/241313 Jevon R Stoner Performed By: #### L 100.0100, L500.4050 ####[facility] [address] [place], [address] T BILI Normal 0.00-1.30 [facility] Comment on above: Result Comment: This specimen has been REJECTED due to Laboratory criteria:Hemolyzed.ED STAFF has been notified of need of recollection.09/21/241313 Jevon R Stoner Performed By: #### L 100.0100, L500.4050 ####[facility] [address] [place], [address] T PROT Normal 5.9-8.4 [facility] Comment on above: Result Comment: This specimen has been REJECTED due to Laboratory criteria:Hemolyzed.ED STAFF has been notified of need of recollection.09/21/241313 Jevon R Stoner Performed By: #### L 100.0100, L500.4050 ####[facility] [address] [place], [address] Comprehensive Metabolic Profil Normal 133-145 [facility] Comment on above: Result Comment: This specimen has been REJECTED due to Laboratory criteria:Hemolyzed.ED STAFF has been notified of need of recollection.09/21/241313 Jevon R Stoner Performed By: #### L 100.0100, L500.4050 ####[facility] [address] [place], [address] Creatinine [Mass/Vol]Ordered By: Riccardo Hillman on 09-21-2024 Serum creatinine measurement (mass/volume) 0.67 mg/dL Low 0.70-1.20 [facility] Emergency Department Summary on 09-21-2024 Emergency Department Summary Normal [facility] Eosinophil percentageOrdered By: Nina Richardson on 09-21-2024 Eosinophils/100 WBC (Bld) 0.6 % 0-5 [facility] Eosinophil percentage 0.6 % 0-5 [facility] Erythrocyte distribution wid th (RBC) [Ratio]Ordered By: Nina Richardson on 09-21-2024 Erythrocyte distribution width ratio 13.0 % 11.6-14.6 [facility] Erythrocyte distribution width standard deviation 39.7 fl 35.1-43.9 [facility] Erythrocyte distribution wid th ratioOrdered By: Nina Richardson on 09-21-2024 Erythrocyte distribution width (RBC) [Ratio] 13.0 % 11.6-14.6 [facility] Erythrocyte distribution wid th standard deviationOrdered By: Nina Richardson on 09-21-2024 Erythrocyte distribution width (RBC) [Ratio] 39.7 fl 35.1-43.9 [facility] Estimation of creatinine sylvain aranceOrdered By: Riccardo Hillman on 09-21-2024 Estimation of creatinine clearance 107.12 ml/min 50-250 [facility] GFR/1.73 sq M.predicted estephanie g non-blacks MDRD (S/P/Bld) [Vol rate/Area]Ordered By: Riccardo Hillman on 09-21-2024 Glomerular filtration rate (GFR) estimation/1.73 sq m using serum, plasma, or whole b 105 >60 [facility] Glomerular filtration rate ( GFR) estimation/1.73 sq m using serum, plasma, or whole bOrdered By: Riccardo Hillman on 09-21-2024 GFR/1.73 sq M.predicted among non-blacks MDRD (S/P/Bld) [Vol rate/Area] 105 mL/min/{1.73_m2} >60 [facility] Glucose Ql (U)Ordered By: Es Richardson on 09-21-2024 Urine glucose detection 1000 mg/dl High Normal [facility] Glucose [Mass/Vol]Ordered By : Riccardo Hillman on 09-21-2024 Serum glucose measurement (mass/volume) 336 mg/dL High 70-99 [facility] Hematocrit Auto (Bld) [Volum e fraction]Ordered By: Nina Richardson on 09-21-2024 Hematocrit (Bld) [Volume fraction] 37.7 % 37- [facility] Automated blood hematocrit (percentage) 37.7 % 37- [facility] Hemoglobin measurementOrdere d By: Nina Richardson on 09-21-2024 Hemoglobin (Bld) [Mass/Vol] 13.0 g/dL 12.0-15.0 [facility] Hemoglobin measurement 13.0 g/dL 12.0-15.0 [facility] Immature granulocytes/100 WB C Auto (Bld)Ordered By: Nina Richardson on 09-21-2024 Immature granulocytes/100 WBC (Bld) 0.300 % 0.0-0.9 [facility] Automated immature granulocyte percentage 0.300 % 0.0-0.9 [facility] Ketones Test strip Ql (U)Ord ered By: Nina Richardson on 09-21-2024 Ketones Ql (U) Negative Negative [facility] Lipaseon 09-21-2024 Lipase [Catalytic activity/Vol] 16 U/L Normal - [facility] Comment on above: Order Comment: REUBEN W. PREVIOUS SPECIMEN REJECTED DUE TOSPECIMEN BEING HEMOLYZED. 09/21/24 1315 Jevon Angeles. Result Comment: Gege edgar note:LIPASE revised reference range effective 22.New Lipase methodology. Expected to produce lower valuesthan the previous assay method.NEW Reference Range: 13 - 75 U/L Performed By: #### L 500.4050, L501.2450 ####[facility] [address] [place], [address] Lipase measurementOrdered By : Riccardo Hillman on 09-21-2024 Lipase measurement 16 U/L 13-75 [facility] Lymphocytes Auto (Unsp spec) [#/Vol]Ordered By: Nina Richardson on 09-21-2024 Absolute lymphocyte count 1.03 X10^3/uL 0.83-4.51 [facility] Lymphocytes/100 WBC Auto (Un sp spec)Ordered By: Nina Richardson on 09-21-2024 Automated lymphocyte count as percentage of total leukocytes 9.8 % Low 19-41 [facility] MCV (RBC) [Entitic vol]Order ed By: Nina Richardson on 09-21-2024 MCV (mean corpuscular volume) determination 84.0 fL 81-99 [facility] MCV (mean corpuscular volume ) determinationOrdered By: Nina Richardson on 09-21-2024 MCV (RBC) [Entitic vol] 84.0 fL 81-99 [facility] Mean corpuscular hemoglobin (MCH) determinationOrdered By: Nina Richardson on 09-21-2024 MCH (RBC) [Entitic mass] 29.0 pg 27.0-32.0 [facility] Mean corpuscular hemoglobin (MCH) determination 29.0 pg 27.0-32.0 [facility] Mean corpuscular hemoglobin concentration (MCHC) determinationOrdered By: Nina Richardson on 09-21-2024 Mean corpuscular hemoglobin concentration (MCHC) determination 34.5 g/dL 32-36 [facility] Mean platelet volume determi nationOrdered By: Nina Richardson on 09-21-2024 Mean platelet volume determination 9.3 fl 6.2-12.0 [facility] Microscopic analysis of urin e for red blood cells (RBC)Ordered By: Nina Richardson on 09-21-2024 Microscopic analysis of urine for red blood cells (RBC) 0-5 SEEN /hpf 5-10 [facility] Monocyte percentageOrdered B y: Nina Richardson on 09-21-2024 Monocytes/100 WBC (Bld) 4.3 % 0-10 [facility] Monocyte percentage 4.3 % 0-10 [facility] Mucus LM Ql (Urine sed)Order ed By: Nina Richardson on 09-21-2024 Mucus Ql (Urine sed) 0 SEEN /hpf [facility] Neutrophil percentageOrdered By: Nina Richardson on 09-21-2024 Neutrophils/100 WBC (Bld) 84.6 % High 47-70 [facility] Neutrophil percentage 84.6 % High 47-70 [facility] Nitrite Test strip Ql (U)Ord ered By: Nina Richardson on 09-21-2024 Nitrite Ql (U) Negative Negative [facility] No Panel InformationOrdered By: Riccardo Hillman on 09-21-2024 19 U/L <32 [facility] Nucleated red blood cell per centageOrdered By: Nina Richardson on 09-21-2024 Nucleated red blood cell percentage 0 % 0-5 [facility] Platelet countOrdered By: Es Richardson on 09-21-2024 Platelets (Bld) [#/Vol] 275 10*3/uL 150-450 [facility] Platelet count 275 K/mm3 150-450 [facility] Potassium (Unsp spec) [Mass/ Vol]Ordered By: Riccardo Hillman on 09-21-2024 Potassium measurement (mass/volume) 3.3 mmol/L 3.3-5.1 [facility] Potassium measurement (mass/ volume)Ordered By: Riccardo Hillman on 09-21-2024 Potassium (Unsp spec) [Mass/Vol] 3.3 mmol/L 3.3-5.1 [facility] Protein Test strip Ql (U)Ord ered By: Nina Richardson on 09-21-2024 Protein Ql (U) 100 mg/dl High Negative [facility] Urine protein assay by test strip, semi-quantitative 100 mg/dl High Negative [facility] RBC Auto (Bld) [#/Vol]Ordere d By: Nina Richardson on 09-21-2024 RBC (Bld) [#/Vol] 4.49 10*6/uL 4.2-5.4 [facility] Automated blood erythrocyte count 4.49 M/mm3 4.2-5.4 [facility] Serum creatinine measurement (mass/volume)Ordered By: Riccardo Hillman on 09-21-2024 Creatinine [Mass/Vol] 0.67 mg/dL Low 0.70-1.20 [facility] Serum globulin measurementOr dered By: Riccardo Hillman on 09-21-2024 Globulin (S) [Mass/Vol] 3.3 g/dL 2.2-4.2 [facility] Serum globulin measurement 3.3 g/dL 2.2-4.2 [facility] Serum glucose measurement (m ass/volume)Ordered By: Riccardo Hillman on 09-21-2024 Glucose [Mass/Vol] 336 mg/dL High 70-99 [facility] Serum or plasma alanine hamilton otransferase (ALT) measurementOrdered By: Riccardo Hillman on 09-21-2024 ALT [Catalytic activity/Vol] 13 U/L <35 [facility] Serum or plasma albumin xiomara urement (mass/volume)Ordered By: Riccardo Hillman on 09-21-2024 Albumin [Mass/Vol] 3.6 g/dL 3.5-5.0 [facility] Serum or plasma albumin/glob ulin mass ratioOrdered By: Riccardo Hillman on 09-21-2024 Albumin/Globulin [Mass ratio] 1.1 {ratio} 0.9-2.4 [facility] Serum or plasma alkaline sabiha sphatase measurementOrdered By: Riccardo Hillman on 09-21-2024 ALP [Catalytic activity/Vol] 128 U/L High 35-104 [facility] Serum or plasma calcium xiomara urement (mass/volume)Ordered By: Riccardo Hillman on 09-21-2024 Calcium [Mass/Vol] 9.3 mg/dL 7.6-11.0 [facility] Serum or plasma urea nitroge n measurement (mass/volume)Ordered By: Riccardo Hillman on 09-21-2024 Urea nitrogen [Mass/Vol] 9 mg/dL 4-19 [facility] Sodium levelOrdered By: Riccardo Hillman on 09-21-2024 Sodium [Moles/Vol] 132 mmol/L Low 133-145 [facility] Sodium level 132 mmol/L Low 133-145 [facility] Specific gravity (U) [Rel de nsity]Ordered By: Nina Richardson on 09-21-2024 Urine specific gravity measurement 1.010 1.002-1.03 0 [facility] Squamous epithelial cells de tection in urine sediment by light microscopyOrdered By: Nina Richardson on 09-21-2024 Epithelial cells.squamous LM Ql (Urine sed) 0-5 SEEN /hpf 5-10 [facility] Total proteinOrdered By: Guerita Hillman on 09-21-2024 Protein [Mass/Vol] 6.9 g/dL 5.9-8.4 [facility] Total protein 6.9 g/dL 5.9-8.4 [facility] Urea nitrogen [Mass/Vol]Orde red By: Riccardo Hillman on 09-21-2024 Serum or plasma urea nitrogen measurement (mass/volume) 9 mg/dL 4-19 [facility] Urinalysis, Completeon 09-21 EPI,SQUAMOUS 0-5 SEEN Normal 5-10 [facility] Comment on above: Order Comment: LUISA CTOR TO SPECIFY Performed By: #### L 400.0001 ####[facility] [address] [place], [address] RBC 0-5 SEEN Normal 0-5 [facility] Comment on above: Order Comment: LUISA CTOR TO SPECIFY Performed By: #### L 400.0001 ####[facility] [address] [place], [address] YEAST RARE Normal None Seen [facility] Comment on above: Order Comment: LUISA CTOR TO SPECIFY Performed By: #### L 400.0001 ####[facility] [address] [place], [address] BACTERIA 0 SEEN Normal None Seen [facility] Comment on above: Order Comment: LUISA CTOR TO SPECIFY Performed By: #### L 400.0001 ####[facility] [address] [place], [address] Mucus Ql (Urine sed) 0 SEEN Normal [facility] Comment on above: Order Comment: LUISA CTOR TO SPECIFY Performed By: #### L 400.0001 ####[facility] [address] [place], [address] WBC 0 SEEN Normal 0-5 [facility] Comment on above: Order Comment: LUISA CTOR TO SPECIFY Performed By: #### L 400.0001 ####[facility] [address] [place], [address] Urine blood detectionOrdered By: Nina Richardson on 09-21-2024 Urine blood detection 25 /ul High Negative [facility] Urine clarityOrdered By: Yamil Richardson on 09-21-2024 Clarity (U) Clear Clear [facility] Urine color determinationOrd ered By: Nina Richardson on 09-21-2024 Color (U) Yellow Yellow [facility] Urine glucose detectionOrder ed By: Nina Richardson on 09-21-2024 Glucose Ql (U) 1000 mg/dl High Normal [facility] Urine leukocyte esterase det ection by dipstickOrdered By: Nina Richardson on 09-21-2024 Leukocyte esterase Test strip Ql (U) Negative Negative [facility] Urine pHOrdered By: Martin Richardson on 09-21-2024 pH (U) 7.0 [pH] 5.0 - 8.0 [facility] Urine sediment bacteria coun t by microscopy (number/high power field)Ordered By: Nina Richardson on 09-21-2024 Bacteria LM.HPF (Urine sed) [#/Area] 0 /[HPF] None Seen [facility] Urine sediment yeast count b y microscopy (number/high powered field)Ordered By: Nina Richardson on 09-21-2024 Yeast LM.HPF (Urine sed) [#/Area] RARE /hpf None Seen [facility] Urine specific gravity measu rementOrdered By: Nina Richardson on 09-21-2024 Specific gravity (U) [Rel density] 1.010 1.002-1.03 0 [facility] Urine total bilirubin detect ion by test stripOrdered By: Nina Richardson on 09-21-2024 Urine total bilirubin detection by test strip Negative Negative [facility] Urine urobilinogen measureme ntOrdered By: Nina Richardson on 09-21-2024 Urobilinogen Ql (U) Normal mg/dl Normal [facility] Urobilinogen Ql (U)Ordered B y: Nina Richardson on 09-21-2024 Urine urobilinogen measurement Normal mg/dl Normal [facility] White blood cell (WBC) count Ordered By: Nina Richardson on 09-21-2024 WBC (Bld) [#/Vol] 10.5 10*3/uL 4.4-11.0 [facility] White blood cell (WBC) count 10.5 K/mm3 4.4-11.0 [facility] White blood cell countOrdere d By: Nina Richardson on 09-21-2024 White blood cell count 0 SEEN /hpf 0-5 [facility] White blood cell count 0 SEEN /hpf W [facility] Yeast LM.HPF (Urine sed) [#/ Area]Ordered By: Nina Richardson on 09-21-2024 Urine sediment yeast count by microscopy (number/high powered field) RARE /hpf None Seen [facility] pH (U)Ordered By: Nina Richardson on 09-21-2024 Urine pH 7.0 5.0 - 8.0 [facility] Absolute lymphocyte countOrd ered By: Latricia Aaron on 09-16-2024 Lymphocytes Auto (Unsp spec) [#/Vol] 1.72 10*3/uL 0.83-4.51 [facility] Absolute neutrophil countOrd ered By: Latricia Aaron on 09-16-2024 Absolute neutrophil count 10.5 X10^3/uL High 2.0-7.7 [facility] Anion gap [Moles/Vol]Ordered By: Brenda Posadas on 09-16-2024 Anion gap in Serum or Plasma 10 10-16 [facility] Anion gap in Serum or Plasma Ordered By: Brenda Posadas on 09-16-2024 Anion gap [Moles/Vol] 10 mmol/L 10-16 [facility] Automated lymphocyte count a s percentage of total leukocytesOrdered By: Latricia Aaron on 09-16-2024 Lymphocytes/100 WBC Auto (Unsp spec) 13.0 % Low 19-41 [facility] BUN/creatinine ratioOrdered By: Brenda Posadas on 09-16-2024 Urea nitrogen/Creatinine [Mass ratio] 24.8 mg/mg High 10 [facility] BUN/creatinine ratio 24.8 RATIO High - [facility] Basic Metabolic Profile (BMP )on 09-16-2024 BUN/CRE 24.8 RATIO High 03-23 [facility] Comment on above: Performed By: #### L 500.2500, L100.0100 ####[facility] [address] [place], [place], [id number] Calcium [Mass/Vol] 9.3 mg/dL Normal 7.6-11.0 [facility] Comment on above: Performed By: #### L 500.2500, L100.0100 ####[facility] [address] [place], [address] Chloride [Moles/Vol] 101 mmol/L Normal 98-108 [facility] Comment on above: Performed By: #### L 500.2500, L100.0100 ####[facility] [address] [place], [address] CO2 [Moles/Vol] 27.0 mmol/L Normal 21.0-32.0 [facility] Comment on above: Performed By: #### L 500.2500, L100.0100 ####[facility] [address] [place], [address] Creatinine [Mass/Vol] 0.69 mg/dL Low 0.70-1.20 [facility] Comment on above: Performed By: #### L 500.2500, L100.0100 ####[facility] [address] [place], [address] ECRCL 104.49 ml/min Normal 50-250 [facility] Comment on above: Performed By: #### L 500.2500, L100.0100 ####[facility] [address] [place], [address] GAP 10 Normal 5-15 [facility] Comment on above: Performed By: #### L 500.2500, L100.0100 ####[facility] [address] [place], [address] GFR/1.73 sq M.predicted among non-blacks MDRD (S/P/Bld) [Vol rate/Area] 104 mL/min/{1.73_m2} Normal >60 [facility] Comment on above: Result Comment: mL/m in/1.73m2 CKD-EPI Creatinine Equation (2020) Performed By: #### L 500.2500, L100.0100 ####[facility] [address] [place], [address] Glucose [Mass/Vol] 195 mg/dL High 70-99 [facility] Comment on above: Performed By: #### L 500.2500, L100.0100 ####[facility] [address] [place], [address] Potassium [Moles/Vol] 4.1 mmol/L Normal 3.3-5.1 [facility] Comment on above: Performed By: #### L 500.2500, L100.0100 ####[facility] [address] [place], [address] Sodium [Moles/Vol] 138 mmol/L Normal 133-145 [facility] Comment on above: Performed By: #### L 500.2500, L100.0100 ####[facility] [address] [place], [address] Urea nitrogen [Mass/Vol] 17 mg/dL Normal 4-19 [facility] Comment on above: Performed By: #### L 500.2500, L100.0100 ####[facility] [address] [place], [address] Basophil percentageOrdered B y: Latricia Aaron on 09-16-2024 Basophils/100 WBC (Bld) 0.4 % 0-1 [facility] Basophil percentage 0.4 % 0-1 [facility] Bedside Glucoseon 09-16-2024 FINGERSTICK GLU 204 mg/dL High 74-106 [facility] Comment on above: Result Comment: TALIA GEMENT OF PATIENT CARE PER NURSING PROTOCOL Performed By: #### L 501.080 ####[facility] [address] [place], [address] FINGERSTICK GLU 215 mg/dL High 74-106 [facility] Comment on above: Result Comment: TALIA GEMENT OF PATIENT CARE PER NURSING PROTOCOL Performed By: #### L 501.080 ####[facility] [address] [place], [address] CBC W/Diff, Automatedon 09-02-2024 Absolute Lymph 1.72 X10 3/uL Normal 0.83-4.51 [facility] Comment on above: Performed By: #### L 100.0100 ####[facility] [address] [place], [address] Absolute Neut 10.5 X10 3/uL High 2.0-7.7 [facility] Comment on above: Performed By: #### L 100.0100 ####[facility] [address] [place], [address] Basophils/100 WBC (Bld) 0.4 % Normal 0-1 [facility] Comment on above: Performed By: #### L 100.0100 ####[facility] [address] [place], [address] Eosinophils/100 WBC (Bld) 0.5 % Normal 0-5 [facility] Comment on above: Performed By: #### L 100.0100 ####[facility] [address] [place], [address] Erythrocyte distribution width (RBC) [Ratio] 13.8 % Normal 11.6-14.6 [facility] Comment on above: Performed By: #### L 100.0100 ####[facility] [address] [place], [address] Hematocrit (Bld) [Volume fraction] 35.1 % Low 37-47 [facility] Comment on above: Performed By: #### L 100.0100 ####[facility] [address] [place], [address] Hemoglobin (Bld) [Mass/Vol] 11.4 g/dL Low 12.0-15.0 [facility] Comment on above: Performed By: #### L 100.0100 ####[facility] [address] [place], [address] IG% 0.500 Normal 0.0-0.9 [facility] Comment on above: Result Comment: IG% - Immature Granulocytes (promyelocytes, myelocytes andmetamyelocytes) > 1% indicates that a LEFT SHIFT is Present. Performed By: #### L 100.0100 ####[facility] [address] [place], [address] Lymphocytes/100 WBC (Bld) 13.0 % Low 19-41 [facility] Comment on above: Performed By: #### L 100.0100 ####[facility] [address] [place], [address] MCH (RBC) [Entitic mass] 27.9 pg Normal 27.0-32.0 [facility] Comment on above: Performed By: #### L 100.0100 ####[facility] [address] [place], [address] MCHC (RBC) [Mass/Vol] 32.5 g/dL Normal 32-36 [facility] Comment on above: Performed By: #### L 100.0100 ####[facility] [address] [place], [address] MCV (RBC) [Entitic vol] 85.8 fL Normal 81-99 [facility] Comment on above: Performed By: #### L 100.0100 ####[facility] [address] [place], [address] Monocytes/100 WBC (Bld) 6.2 % Normal 0-10 [facility] Comment on above: Performed By: #### L 100.0100 ####[facility] [address] [place], [address] Neutrophils/100 WBC (Bld) 79.4 % High 47-70 [facility] Comment on above: Performed By: #### L 100.0100 ####[facility] [address] [place], [address] Nucleated RBC (Bld) [#/Vol] 0 10*3/uL Normal 0-5 [facility] Comment on above: Performed By: #### L 100.0100 ####[facility] [address] [place], [address] Platelet mean volume (Bld) [Entitic vol] 9.9 fL Normal 6.2-12.0 [facility] Comment on above: Performed By: #### L 100.0100 ####[facility] [address] [place], [address] Platelets (Bld) [#/Vol] 229 10*3/uL Normal 150-450 [facility] Comment on above: Performed By: #### L 100.0100 ####[facility] [address] [place], [address] RBC (Bld) [#/Vol] 4.09 10*6/uL Low 4.2-5.4 [facility] Comment on above: Performed By: #### L 100.0100 ####[facility] [address] [place], [address] RDW SD 43.5 fl Normal 35.1-43.9 [facility] Comment on above: Performed By: #### L 100.0100 ####[facility] [address] [place], [address] WBC (Bld) [#/Vol] 13.2 10*3/uL High 4.4-11.0 [facility] Comment on above: Performed By: #### L 100.0100 ####[facility] [address] [place], [address] Absolute Neut Normal 2.0-7.7 [facility] Comment on above: Result Comment: CLOT FREDDY, SPOKE WITH RANGLE Performed By: #### L 500.2500, L100.0100 ####[facility] [address] [place], [address] HCT Normal 37-47 [facility] Comment on above: Result Comment: CLOT FREDDY, SPOKE WITH RANGLE Performed By: #### L 500.2500, L100.0100 ####[facility] [address] [place], [address] HGB Normal 12.0-15.0 [facility] Comment on above: Result Comment: CLOT FREDDY, SPOKE WITH RANGLE Performed By: #### L 500.2500, L100.0100 ####[facility] [address] [place], [address] MCH Normal 27.0-32.0 [facility] Comment on above: Result Comment: CLOT FREDDY, SPOKE WITH RANGLE Performed By: #### L 500.2500, L100.0100 ####[facility] [address] [place], [address] MCHC Normal 32-36 [facility] Comment on above: Result Comment: CLOT FREDDY, SPOKE WITH RANGLE Performed By: #### L 500.2500, L100.0100 ####[facility] [address] [place], [address] MCV Normal 81-99 [facility] Comment on above: Result Comment: CLOT FREDDY, SPOKE WITH RANGLE Performed By: #### L 500.2500, L100.0100 ####[facility] [address] [place], [address] NEUT% Normal 47-70 [facility] Comment on above: Result Comment: CLOT FREDDY, SPOKE WITH RANGLE Performed By: #### L 500.2500, L100.0100 ####[facility] [address] [place], [address] PLT Normal 150-450 [facility] Comment on above: Result Comment: CLOT FREDDY, SPOKE WITH RANGLE Performed By: #### L 500.2500, L100.0100 ####[facility] [address] [place], [address] RBC Normal 4.2-5.4 [facility] Comment on above: Result Comment: CLOT FREDDY, SPOKE WITH RANGLE Performed By: #### L 500.2500, L100.0100 ####[facility] [address] [place], [address] RDW CV Normal 11.6-14.6 [facility] Comment on above: Result Comment: CLOT FREDDY, SPOKE WITH RANGLE Performed By: #### L 500.2500, L100.0100 ####[facility] [address] [place], [address] RDW SD Normal 35.1-43.9 [facility] Comment on above: Result Comment: CLOT FREDDY, SPOKE WITH RANGLE Performed By: #### L 500.2500, L100.0100 ####[facility] [address] [place], [address] WBC Normal 4.4-11.0 [facility] Comment on above: Result Comment: CLOT FREDDY, SPOKE WITH RANGLE Performed By: #### L 500.2500, L100.0100 ####[facility] [address] [place], [address] Calcium [Mass/Vol]Ordered By : Brenda Posadas on 09-16-2024 Serum or plasma calcium measurement (mass/volume) 9.3 mg/dL 7.6-11.0 [facility] Carbon dioxide, total [Moles /volume] in Central venous bloodOrdered By: Brenda Posadas on 09-16-2024 CO2 [Moles/Vol] 27.0 mmol/L 21.0-32.0 [facility] Carbon dioxide, total [Moles/volume] in Central venous blood 27.0 mmol/L 21.0-32.0 [facility] Chloride assayOrdered By: Martin Posadas on 09-16-2024 Chloride [Moles/Vol] 101 mmol/L 98-108 [facility] Chloride assay 101 mmol/L 98-108 [facility] Creatinine [Mass/Vol]Ordered By: Brenda Posadas on 09-16-2024 Serum creatinine measurement (mass/volume) 0.69 mg/dL Low 0.70-1.20 [facility] Eosinophil percentageOrdered By: Latricia Aaron on 09-16-2024 Eosinophils/100 WBC (Bld) 0.5 % 0-5 [facility] Eosinophil percentage 0.5 % 0-5 [facility] Erythrocyte distribution wid th (RBC) [Ratio]Ordered By: Latricia Aaron on 09-16-2024 Erythrocyte distribution width ratio 13.8 % 11.6-14.6 [facility] Erythrocyte distribution width standard deviation 43.5 fl 35.1-43.9 [facility] Erythrocyte distribution wid th ratioOrdered By: Latricia Aaron on 09-16-2024 Erythrocyte distribution width (RBC) [Ratio] 13.8 % 11.6-14.6 [facility] Erythrocyte distribution wid th standard deviationOrdered By: Latricia Aaron on 09-16-2024 Erythrocyte distribution width (RBC) [Ratio] 43.5 fl 35.1-43.9 [facility] Estimation of creatinine sylvain aranceOrdered By: Brenda Posadas on 09-16-2024 Estimation of creatinine clearance 104.49 ml/min 50-250 [facility] GFR/1.73 sq M.predicted estephanie g non-blacks MDRD (S/P/Bld) [Vol rate/Area]Ordered By: Brenda Posadas on 09-16-2024 Glomerular filtration rate (GFR) estimation/1.73 sq m using serum, plasma, or whole b 104 >60 [facility] Glomerular filtration rate ( GFR) estimation/1.73 sq m using serum, plasma, or whole bOrdered By: Brenda Posadas on 09-16-2024 GFR/1.73 sq M.predicted among non-blacks MDRD (S/P/Bld) [Vol rate/Area] 104 mL/min/{1.73_m2} >60 [facility] Glucose [Mass/Vol]Ordered By : Brenda Posadas on 09-16-2024 Serum glucose measurement (mass/volume) 195 mg/dL High 70-99 [facility] Glucose measurement at bedsi deOrdered By: Latricia Aaron on 09-16-2024 Glucose [Mass/Vol] 204 mg/dL High 74-106 [facility] Glucose measurement at bedside 204 mg/dL High 74-106 [facility] Hematocrit Auto (Bld) [Volum e fraction]Ordered By: Latricia Aaron on 09-16-2024 Hematocrit (Bld) [Volume fraction] 35.1 % Low 37-47 [facility] Automated blood hematocrit (percentage) 35.1 % Low 37-47 [facility] Hemoglobin measurementOrdere d By: Latricia Aaron on 09-16-2024 Hemoglobin (Bld) [Mass/Vol] 11.4 g/dL Low 12.0-15.0 [facility] Hemoglobin measurement 11.4 g/dL Low 12.0-15.0 [facility] Immature granulocytes/100 WB C Auto (Bld)Ordered By: Latricia Aaron on 09-16-2024 Immature granulocytes/100 WBC (Bld) 0.500 % 0.0-0.9 [facility] Automated immature granulocyte percentage 0.500 % 0.0-0.9 [facility] Lymphocytes Auto (Unsp spec) [#/Vol]Ordered By: Latricia Aaron on 09-16-2024 Absolute lymphocyte count 1.72 X10^3/uL 0.83-4.51 [facility] Lymphocytes/100 WBC Auto (Un sp spec)Ordered By: Latricia Aaron on 09-16-2024 Automated lymphocyte count as percentage of total leukocytes 13.0 % Low 19-41 [facility] MCV (RBC) [Entitic vol]Order ed By: Latricia Aaron on 09-16-2024 MCV (mean corpuscular volume) determination 85.8 fL 81-99 [facility] MCV (mean corpuscular volume ) determinationOrdered By: Latricia Aaron on 09-16-2024 MCV (RBC) [Entitic vol] 85.8 fL 81-99 [facility] Mean corpuscular hemoglobin (MCH) determinationOrdered By: Latricia Aaron on 09-16-2024 MCH (RBC) [Entitic mass] 27.9 pg 27.0-32.0 [facility] Mean corpuscular hemoglobin (MCH) determination 27.9 pg 27.0-32.0 [facility] Mean corpuscular hemoglobin concentration (MCHC) determinationOrdered By: Latricia Aaron on 09-16-2024 Mean corpuscular hemoglobin concentration (MCHC) determination 32.5 g/dL 32-36 [facility] Mean platelet volume determi nationOrdered By: Latricia Aaron on 09-16-2024 Mean platelet volume determination 9.9 fl 6.2-12.0 [facility] Monocyte percentageOrdered B y: Latricia Aaron on 09-16-2024 Monocytes/100 WBC (Bld) 6.2 % 0-10 [facility] Monocyte percentage 6.2 % 0-10 [facility] Neutrophil percentageOrdered By: Latricia Aaron on 09-16-2024 Neutrophils/100 WBC (Bld) 79.4 % High 47-70 [facility] Neutrophil percentage 79.4 % High 47-70 [facility] Nucleated red blood cell per centageOrdered By: Latricia Aaron on 09-16-2024 Nucleated red blood cell percentage 0 % 0-5 [facility] Platelet countOrdered By: Tristan Aaron on 09-16-2024 Platelets (Bld) [#/Vol] 229 10*3/uL 150-450 [facility] Platelet count 229 K/mm3 150-450 [facility] Potassium (Unsp spec) [Mass/ Vol]Ordered By: Brenda Posadas on 09-16-2024 Potassium measurement (mass/volume) 4.1 mmol/L 3.3-5.1 [facility] Potassium measurement (mass/ volume)Ordered By: Brenda Posadas on 09-16-2024 Potassium (Unsp spec) [Mass/Vol] 4.1 mmol/L 3.3-5.1 [facility] RBC Auto (Bld) [#/Vol]Ordere d By: Latricia Aaron on 09-16-2024 RBC (Bld) [#/Vol] 4.09 10*6/uL Low 4.2-5.4 [facility] Automated blood erythrocyte count 4.09 M/mm3 Low 4.2-5.4 [facility] Serum creatinine measurement (mass/volume)Ordered By: Brenda Posadas on 09-16-2024 Creatinine [Mass/Vol] 0.69 mg/dL Low 0.70-1.20 [facility] Serum glucose measurement (m ass/volume)Ordered By: Brenda Posadas on 09-16-2024 Glucose [Mass/Vol] 195 mg/dL High 70-99 [facility] Serum or plasma calcium xiomara urement (mass/volume)Ordered By: Brenda Posadas on 09-16-2024 Calcium [Mass/Vol] 9.3 mg/dL 7.6-11.0 [facility] Serum or plasma urea nitroge n measurement (mass/volume)Ordered By: Brenda Posadas on 09-16-2024 Urea nitrogen [Mass/Vol] 17 mg/dL 09-20 [facility] Sodium levelOrdered By: Gavi Posadas on 09-16-2024 Sodium [Moles/Vol] 138 mmol/L 133-145 [facility] Sodium level 138 mmol/L 133-145 [facility] Urea nitrogen [Mass/Vol]Orde red By: Brenda Posadas on 09-16-2024 Serum or plasma urea nitrogen measurement (mass/volume) 17 mg/dL 09-20 [facility] White blood cell (WBC) count Ordered By: Latricia Aaron on 09-16-2024 WBC (Bld) [#/Vol] 13.2 10*3/uL High 4.4-11.0 [facility] White blood cell (WBC) count 13.2 K/mm3 High 4.4-11.0 [facility] Basic Metabolic Profile (BMP )on 09-15-2024 BUN/CRE 19.5 RATIO Normal 10-20 [facility] Comment on above: Performed By: #### L 500.2500, L100.0100 ####[facility] [address] [place], [place], [id number] Calcium [Mass/Vol] 9.1 mg/dL Normal 7.6-11.0 [facility] Comment on above: Performed By: #### L 500.2500, L100.0100 ####[facility] [address] [place], [address] Chloride [Moles/Vol] 100 mmol/L Normal 98-108 [facility] Comment on above: Performed By: #### L 500.2500, L100.0100 ####[facility] [address] [place], [address] CO2 [Moles/Vol] 27.6 mmol/L Normal 21.0-32.0 [facility] Comment on above: Performed By: #### L 500.2500, L100.0100 ####[facility] [address] [place], [address] Creatinine [Mass/Vol] 0.79 mg/dL Normal 0.70-1.20 [facility] Comment on above: Performed By: #### L 500.2500, L100.0100 ####[facility] [address] [place], [address] ECRCL 93.04 ml/min Normal 50-250 [facility] Comment on above: Performed By: #### L 500.2500, L100.0100 ####[facility] [address] [place], [address] GAP 8 Normal 5-15 [facility] Comment on above: Performed By: #### L 500.2500, L100.0100 ####[facility] [address] [place], [address] GFR/1.73 sq M.predicted among non-blacks MDRD (S/P/Bld) [Vol rate/Area] 89 mL/min/{1.73_m2} Normal >60 [facility] Comment on above: Result Comment: mL/m in/1.73m2 CKD-EPI Creatinine Equation (2020) Performed By: #### L 500.2500, L100.0100 ####[facility] [address] [place], [address] Glucose [Mass/Vol] 172 mg/dL High 70-99 [facility] Comment on above: Performed By: #### L 500.2500, L100.0100 ####[facility] [address] [place], [address] Potassium [Moles/Vol] 3.9 mmol/L Normal 3.3-5.1 [facility] Comment on above: Performed By: #### L 500.2500, L100.0100 ####[facility] [address] [place], [address] Sodium [Moles/Vol] 136 mmol/L Normal 133-145 [facility] Comment on above: Performed By: #### L 500.2500, L100.0100 ####[facility] [address] [place], [address] Urea nitrogen [Mass/Vol] 15 mg/dL Normal 4-19 [facility] Comment on above: Performed By: #### L 500.2500, L100.0100 ####[facility] [address] [place], [address] Bedside Glucoseon 09-15-2024 FINGERSTICK GLU 278 mg/dL High 74-106 [facility] Comment on above: Result Comment: TALIA GEMENT OF PATIENT CARE PER NURSING PROTOCOL Performed By: #### L 501.080 ####[facility] [address] [place], [address] FINGERSTICK GLU 218 mg/dL High 74-106 [facility] Comment on above: Result Comment: TALIA GEMENT OF PATIENT CARE PER NURSING PROTOCOL Performed By: #### L 501.080 ####[facility] [address] [place], [address] FINGERSTICK GLU 234 mg/dL High 74-106 [facility] Comment on above: Result Comment: TALIA GEMENT OF PATIENT CARE PER NURSING PROTOCOL Performed By: #### L 501.080 ####[facility] [address] [place], [address] FINGERSTICK GLU 188 mg/dL High 74-106 [facility] Comment on above: Result Comment: TALIA CHAMBERS OF PATIENT CARE PER NURSING PROTOCOL Performed By: #### L 501.080 ####[facility] [address] [place], [address] CBC W/Diff, Automatedon 09-02 Absolute Lymph 1.34 X10 3/uL Normal 0.83-4.51 [facility] Comment on above: Performed By: #### L 500.2500, L100.0100 ####[facility] [address] [place], [address] Absolute Neut 6.8 X10 3/uL Normal 2.0-7.7 [facility] Comment on above: Performed By: #### L 500.2500, L100.0100 ####[facility] [address] [place], [address] Basophils/100 WBC (Bld) 0.7 % Normal 0-1 [facility] Comment on above: Performed By: #### L 500.2500, L100.0100 ####[facility] [address] [place], [address] Eosinophils/100 WBC (Bld) 1.2 % Normal 0-5 [facility] Comment on above: Performed By: #### L 500.2500, L100.0100 ####[facility] [address] [place], [address] Erythrocyte distribution width (RBC) [Ratio] 14.0 % Normal 11.6-14.6 [facility] Comment on above: Performed By: #### L 500.2500, L100.0100 ####[facility] [address] [place], [address] Hematocrit (Bld) [Volume fraction] 32.2 % Low 37-47 [facility] Comment on above: Performed By: #### L 500.2500, L100.0100 ####[facility] [address] [place], [address] Hemoglobin (Bld) [Mass/Vol] 10.3 g/dL Low 12.0-15.0 [facility] Comment on above: Performed By: #### L 500.2500, L100.0100 ####[facility] [address] [place], [address] IG% 0.400 Normal 0.0-0.9 [facility] Comment on above: Result Comment: IG% - Immature Granulocytes (promyelocytes, myelocytes andmetamyelocytes) > 1% indicates that a LEFT SHIFT is Present. Performed By: #### L 500.2500, L100.0100 ####[facility] [address] [place], [address] Lymphocytes/100 WBC (Bld) 14.8 % Low 19-41 [facility] Comment on above: Performed By: #### L 500.2500, L100.0100 ####[facility] [address] [place], [address] MCH (RBC) [Entitic mass] 27.5 pg Normal 27.0-32.0 [facility] Comment on above: Performed By: #### L 500.2500, L100.0100 ####[facility] [address] [place], [address] MCHC (RBC) [Mass/Vol] 32.0 g/dL Normal 32-36 [facility] Comment on above: Performed By: #### L 500.2500, L100.0100 ####[facility] [address] [place], [address] MCV (RBC) [Entitic vol] 86.1 fL Normal 81-99 [facility] Comment on above: Performed By: #### L 500.2500, L100.0100 ####[facility] [address] [place], [address] Monocytes/100 WBC (Bld) 8.1 % Normal 0-10 [facility] Comment on above: Performed By: #### L 500.2500, L100.0100 ####[facility] [address] [place], [address] Neutrophils/100 WBC (Bld) 74.8 % High 47-70 [facility] Comment on above: Performed By: #### L 500.2500, L100.0100 ####[facility] [address] [place], [address] Nucleated RBC (Bld) [#/Vol] 0 10*3/uL Normal 0-5 [facility] Comment on above: Performed By: #### L 500.2500, L100.0100 ####[facility] [address] [place], [address] Platelet mean volume (Bld) [Entitic vol] 10.0 fL Normal 6.2-12.0 [facility] Comment on above: Performed By: #### L 500.2500, L100.0100 ####[facility] [address] [place], [address] Platelets (Bld) [#/Vol] 211 10*3/uL Normal 150-450 [facility] Comment on above: Performed By: #### L 500.2500, L100.0100 ####[facility] [address] [place], [address] RBC (Bld) [#/Vol] 3.74 10*6/uL Low 4.2-5.4 [facility] Comment on above: Performed By: #### L 500.2500, L100.0100 ####[facility] [address] [place], [address] RDW SD 43.8 fl Normal 35.1-43.9 [facility] Comment on above: Performed By: #### L 500.2500, L100.0100 ####[facility] [address] [place], [address] WBC (Bld) [#/Vol] 9.0 10*3/uL Normal 4.4-11.0 [facility] Comment on above: Performed By: #### L 500.2500, L100.0100 ####[facility] [address] [place], [address] Consultation - Urologyon Consultation - Urology Normal [facility] Urine Cultureon 09-15-2024 URC Below infection leve l. Yeast, not Ashley albicans [place] Count 1000-10,000 Normal [facility] Comment on above: Performed By: #### L 400.0001, M100.2200 ####[facility] [address] [place], [address] Basic Metabolic Profile (BMP )on 09-14-2024 BUN/CRE 25.9 RATIO High 10-20 [facility] Comment on above: Performed By: #### L 500.2500, L100.0100 ####[facility] [address] [place], [address] Calcium [Mass/Vol] 9.0 mg/dL Normal 7.6-11.0 [facility] Comment on above: Performed By: #### L 500.2500, L100.0100 ####[facility] [address] [place], [address] Chloride [Moles/Vol] 103 mmol/L Normal 98-108 [facility] Comment on above: Performed By: #### L 500.2500, L100.0100 ####[facility] [address] [place], [address] CO2 [Moles/Vol] 20.0 mmol/L Low 21.0-32.0 [facility] Comment on above: Performed By: #### L 500.2500, L100.0100 ####[facility] [address] [place], [address] Creatinine [Mass/Vol] 0.81 mg/dL Normal 0.70-1.20 [facility] Comment on above: Performed By: #### L 500.2500, L100.0100 ####[facility] [address] [place], [address] ECRCL 90.18 ml/min Normal 50-250 [facility] Comment on above: Performed By: #### L 500.2500, L100.0100 ####[facility] [address] [place], [address] GAP 11 Normal 5-15 [facility] Comment on above: Performed By: #### L 500.2500, L100.0100 ####[facility] [address] [place], [address] GFR/1.73 sq M.predicted among non-blacks MDRD (S/P/Bld) [Vol rate/Area] 87 mL/min/{1.73_m2} Normal >60 [facility] Comment on above: Result Comment: mL/m in/1.73m2 CKD-EPI Creatinine Equation (2020) Performed By: #### L 500.2500, L100.0100 ####[facility] [address] [place], [address] Glucose [Mass/Vol] 181 mg/dL High 70-99 [facility] Comment on above: Performed By: #### L 500.2500, L100.0100 ####[facility] [address] [place], [address] Potassium [Moles/Vol] 4.6 mmol/L Normal 3.3-5.1 [facility] Comment on above: Result Comment: Hemo lysis present, Results??could be affected.?? Performed By: #### L 500.2500, L100.0100 ####[facility] [address] [place], [address] Sodium [Moles/Vol] 134 mmol/L Normal 133-145 [facility] Comment on above: Performed By: #### L 500.2500, L100.0100 ####[facility] [address] [place], [address] Urea nitrogen [Mass/Vol] 21 mg/dL High 4-19 [facility] Comment on above: Performed By: #### L 500.2500, L100.0100 ####[facility] [address] [place], [address] Bedside Glucoseon 09-14-2024 FINGERSTICK GLU 188 mg/dL High 74-106 [facility] Comment on above: Result Comment: TALIA GEMENT OF PATIENT CARE PER NURSING PROTOCOL Performed By: #### L 501.080 ####[facility] [address] [place], [address] FINGERSTICK GLU 248 mg/dL High 74-106 [facility] Comment on above: Result Comment: TALIA GEMENT OF PATIENT CARE PER NURSING PROTOCOL Performed By: #### L 501.080 ####[facility] [address] [place], [address] FINGERSTICK GLU 288 mg/dL High 74-106 [facility] Comment on above: Result Comment: TALIA GEMENT OF PATIENT CARE PER NURSING PROTOCOL Performed By: #### L 501.080 ####[facility] [address] [place], [address] FINGERSTICK GLU 172 mg/dL High 74-106 [facility] Comment on above: Result Comment: TALIA GEMENT OF PATIENT CARE PER NURSING PROTOCOL Performed By: #### L 501.080 ####[facility] [address] [place], [address] CBC W/Diff, Automatedon 09-02 Platelets (Bld) [#/Vol] 129 10*3/uL Low 150-450 [facility] Comment on above: Performed By: #### L 500.2500, L100.0100 ####[facility] [address] [place], [address] Culture, Blood (WB)on 2024 CUB LHAND Blood cultures x2, from two different sites No growth in 5 days. Normal [facility] Comment on above: Performed By: #### M 200.1000 ####[facility] [address] [place], [address] Basic Metabolic Profile (BMP )on 09-13-2024 BUN/CRE 17.6 RATIO Normal 10-20 [facility] Comment on above: Performed By: #### L 500.2500, L100.0100 ####[facility] [address] [place], [address] Calcium [Mass/Vol] 9.1 mg/dL Normal 7.6-11.0 [facility] Comment on above: Performed By: #### L 500.2500, L100.0100 ####[facility] [address] [place], [address] Chloride [Moles/Vol] 104 mmol/L Normal 98-108 [facility] Comment on above: Performed By: #### L 500.2500, L100.0100 ####[facility] [address] [place], [address] CO2 [Moles/Vol] 21.1 mmol/L Normal 21.0-32.0 [facility] Comment on above: Performed By: #### L 500.2500, L100.0100 ####[facility] [address] [place], [address] Creatinine [Mass/Vol] 1.02 mg/dL Normal 0.70-1.20 [facility] Comment on above: Performed By: #### L 500.2500, L100.0100 ####[facility] [address] [place], [address] ECRCL 71.49 ml/min Normal 50-250 [facility] Comment on above: Performed By: #### L 500.2500, L100.0100 ####[facility] [address] [place], [address] GAP 11 Normal 5-15 [facility] Comment on above: Performed By: #### L 500.2500, L100.0100 ####[facility] [address] [place], [address] GFR/1.73 sq M.predicted among non-blacks MDRD (S/P/Bld) [Vol rate/Area] 66 mL/min/{1.73_m2} Normal >60 [facility] Comment on above: Result Comment: mL/m in/1.73m2 CKD-EPI Creatinine Equation (2020) Performed By: #### L 500.2500, L100.0100 ####[facility] [address] [place], [address] Glucose [Mass/Vol] 223 mg/dL High 70-99 [facility] Comment on above: Performed By: #### L 500.2500, L100.0100 ####[facility] [address] [place], [address] Potassium [Moles/Vol] 4.2 mmol/L Normal 3.3-5.1 [facility] Comment on above: Performed By: #### L 500.2500, L100.0100 ####[facility] [address] [place], [address] Sodium [Moles/Vol] 136 mmol/L Normal 133-145 [facility] Comment on above: Performed By: #### L 500.2500, L100.0100 ####[facility] [address] [place], [address] Urea nitrogen [Mass/Vol] 18 mg/dL Normal 4-19 [facility] Comment on above: Performed By: #### L 500.2500, L100.0100 ####[facility] [address] [place], [address] Bedside Glucoseon 09-13-2024 FINGERSTICK GLU 207 mg/dL High 74-106 [facility] Comment on above: Result Comment: TALIA GEMENT OF PATIENT CARE PER NURSING PROTOCOL Performed By: #### L 501.080 ####[facility] [address] [place], [address] FINGERSTICK GLU 249 mg/dL High 74-106 [facility] Comment on above: Result Comment: TALIA GEMENT OF PATIENT CARE PER NURSING PROTOCOL Performed By: #### L 501.080 ####[facility] [address] [place], [address] FINGERSTICK GLU 181 mg/dL High -106 [facility] Comment on above: Result Comment: TALIA GEMENT OF PATIENT CARE PER NURSING PROTOCOL Performed By: #### L 501.080 ####[facility] [address] [place], [address] FINGERSTICK GLU 214 mg/dL High 74-106 [facility] Comment on above: Result Comment: TALIA GEMENT OF PATIENT CARE PER NURSING PROTOCOL Performed By: #### L 501.080 ####[facility] [address] [place], [address] CBC W/Diff, Automatedon 09-02 Absolute Lymph 1.69 X10 3/uL Normal 0.83-4.51 [facility] Comment on above: Performed By: #### L 500.2500, L100.0100 ####[facility] [address] [place], [address] Absolute Neut 8.9 X10 3/uL High 2.0-7.7 [facility] Comment on above: Performed By: #### L 500.2500, L100.0100 ####[facility] [address] [place], [address] Basophils/100 WBC (Bld) 0.9 % Normal 0-1 [facility] Comment on above: Performed By: #### L 500.2500, L100.0100 ####[facility] [address] [place], [address] Eosinophils/100 WBC (Bld) 1.6 % Normal 0-5 [facility] Comment on above: Performed By: #### L 500.2500, L100.0100 ####[facility] [address] [place], [address] Erythrocyte distribution width (RBC) [Ratio] 14.0 % Normal 11.6-14.6 [facility] Comment on above: Performed By: #### L 500.2500, L100.0100 ####[facility] [address] [place], [address] Hematocrit (Bld) [Volume fraction] 35.1 % Low 37-47 [facility] Comment on above: Performed By: #### L 500.2500, L100.0100 ####[facility] [address] [place], [address] Hemoglobin (Bld) [Mass/Vol] 11.3 g/dL Low 12.0-15.0 [facility] Comment on above: Performed By: #### L 500.2500, L100.0100 ####[facility] [address] [place], [address] IG% 0.600 Normal 0.0-0.9 [facility] Comment on above: Result Comment: IG% - Immature Granulocytes (promyelocytes, myelocytes andmetamyelocytes) > 1% indicates that a LEFT SHIFT is Present. Performed By: #### L 500.2500, L100.0100 ####[facility] [address] [place], [address] Lymphocytes/100 WBC (Bld) 14.4 % Low 19-41 [facility] Comment on above: Performed By: #### L 500.2500, L100.0100 ####[facility] [address] [place], [address] MCH (RBC) [Entitic mass] 28.2 pg Normal 27.0-32.0 [facility] Comment on above: Performed By: #### L 500.2500, L100.0100 ####[facility] [address] [place], [address] MCHC (RBC) [Mass/Vol] 32.2 g/dL Normal 32-36 [facility] Comment on above: Performed By: #### L 500.2500, L100.0100 ####[facility] [address] [place], [address] MCV (RBC) [Entitic vol] 87.5 fL Normal 81-99 [facility] Comment on above: Performed By: #### L 500.2500, L100.0100 ####[facility] [address] [place], [address] Monocytes/100 WBC (Bld) 6.9 % Normal 0-10 [facility] Comment on above: Performed By: #### L 500.2500, L100.0100 ####[facility] [address] [place], [address] Neutrophils/100 WBC (Bld) 75.6 % High 47-70 [facility] Comment on above: Performed By: #### L 500.2500, L100.0100 ####[facility] [address] [place], [address] Nucleated RBC (Bld) [#/Vol] 0 10*3/uL Normal 0-5 [facility] Comment on above: Performed By: #### L 500.2500, L100.0100 ####[facility] [address] [place], [address] Platelet mean volume (Bld) [Entitic vol] 10.1 fL Normal 6.2-12.0 [facility] Comment on above: Performed By: #### L 500.2500, L100.0100 ####[facility] [address] [place], [address] Platelets (Bld) [#/Vol] 232 10*3/uL Normal 150-450 [facility] Comment on above: Performed By: #### L 500.2500, L100.0100 ####[facility] [address] [place], [address] RBC (Bld) [#/Vol] 4.01 10*6/uL Low 4.2-5.4 [facility] Comment on above: Performed By: #### L 500.2500, L100.0100 ####[facility] [address] [place], [address] RDW SD 44.9 fl High 35.1-43.9 [facility] Comment on above: Performed By: #### L 500.2500, L100.0100 ####[facility] [address] [place], [address] WBC (Bld) [#/Vol] 11.7 10*3/uL High 4.4-11.0 [facility] Comment on above: Performed By: #### L 500.2500, L100.0100 ####[facility] [address] [place], [address] Basic Metabolic Profile (BMP )on 09-12-2024 BUN/CRE 24.0 RATIO High 10-20 [facility] Comment on above: Performed By: #### L 100.0100, L500.2500 ####[facility] [address] [place], [address] Calcium [Mass/Vol] 9.0 mg/dL Normal 7.6-11.0 [facility] Comment on above: Performed By: #### L 100.0100, L500.2500 ####[facility] [address] [place], [address] Chloride [Moles/Vol] 105 mmol/L Normal 98-108 [facility] Comment on above: Performed By: #### L 100.0100, L500.2500 ####[facility] [address] [place], [address] CO2 [Moles/Vol] 17.3 mmol/L Low 21.0-32.0 [facility] Comment on above: Performed By: #### L 100.0100, L500.2500 ####[facility] [address] [place], [address] Creatinine [Mass/Vol] 0.86 mg/dL Normal 0.70-1.20 [facility] Comment on above: Performed By: #### L 100.0100, L500.2500 ####[facility] [address] [place], [address] ECRCL 84.22 ml/min Normal 50-250 [facility] Comment on above: Performed By: #### L 100.0100, L500.2500 ####[facility] [address] [place], [address] GAP 11 Normal 5-15 [facility] Comment on above: Performed By: #### L 100.0100, L500.2500 ####[facility] [address] [place], [address] GFR/1.73 sq M.predicted among non-blacks MDRD (S/P/Bld) [Vol rate/Area] 81 mL/min/{1.73_m2} Normal >60 [facility] Comment on above: Result Comment: mL/m in/1.73m2 CKD-EPI Creatinine Equation (2020) Performed By: #### L 100.0100, L500.2500 ####[facility] [address] [place], [address] Glucose [Mass/Vol] 213 mg/dL High 70-99 [facility] Comment on above: Performed By: #### L 100.0100, L500.2500 ####[facility] [address] [place], [address] Potassium [Moles/Vol] 4.7 mmol/L Normal 3.3-5.1 [facility] Comment on above: Result Comment: Hemo lysis present, Results??could be affected.?? Performed By: #### L 100.0100, L500.2500 ####[facility] [address] [place], [address] Sodium [Moles/Vol] 134 mmol/L Normal 133-145 [facility] Comment on above: Performed By: #### L 100.0100, L500.2500 ####[facility] [address] [place], [address] Urea nitrogen [Mass/Vol] 21 mg/dL High 4-19 [facility] Comment on above: Performed By: #### L 100.0100, L500.2500 ####[facility] [address] [place], [address] Bedside Glucoseon 09-12-2024 FINGERSTICK GLU 271 mg/dL High 74-106 [facility] Comment on above: Result Comment: TALIA CHAMBERS OF PATIENT CARE PER NURSING PROTOCOL Performed By: #### L 501.080 ####[facility] [address] [place], [address] FINGERSTICK GLU 352 mg/dL High 74-106 [facility] Comment on above: Result Comment: TALIA GEMENT OF PATIENT CARE PER NURSING PROTOCOL Performed By: #### L 501.080 ####[facility] [address] [place], [address] FINGERSTICK GLU 195 mg/dL High [address] [facility] Comment on above: Result Comment: TALIA GEMENT OF PATIENT CARE PER NURSING PROTOCOL Performed By: #### L 501.080 ####[facility] [address] [place], [address] FINGERSTICK GLU 210 mg/dL High -106 [facility] Comment on above: Result Comment: TALIA GEMENT OF PATIENT CARE PER NURSING PROTOCOL Performed By: #### L 501.080 ####[facility] [address] [place], [address] FINGERSTICK GLU 331 mg/dL High [address] [place] [address] Comment on above: Result Comment: TALIA GEMENT OF PATIENT CARE PER NURSING PROTOCOL Performed By: #### L 501.080 ####[facility] [address] [place], [address] Bilirubin Test strip Ql (U)O rdered By: Nichelle Mcneil on 09-12-2024 Bilirubin Ql (U) Negative Negative [facility] CBC W/Diff, Automatedon 09-02 PLT EST ADEQUATE Normal ADEQ [facility] Comment on above: Performed By: #### L 100.0100, L500.2500 ####[facility] [address] [place], [address] CNCOon 09-12-2024 CNCO Letter Text Normal [facility] Clarity (U)Ordered By: Juan Mcneil on 09-12-2024 Urine clarity Clear Clear [facility] Color (U)Ordered By: Nichelle Mcneil on 09-12-2024 Urine color determination Straw Yellow [facility] Consultation - Infectious Dx on 09-12-2024 Consultation - Infectious Dx Normal [facility] Epithelial cells.squamous LM Ql (Urine sed)Ordered By: Nichelle Mcneil on 09-12-2024 Squamous epithelial cells detection in urine sediment by light microscopy 0-5 SEEN /hpf 5- [facility] Glucose Ql (U)Ordered By: Olamide Mcneil on 09-12-2024 Urine glucose detection 1000 mg/dl High Normal W [facility] Ketones Test strip Ql (U)Ord ered By: Nichelle Mcneil on 09-12-2024 Ketones Ql (U) Negative Negative [facility] Mucus LM Ql (Urine sed)Order ed By: Nichelle Mcneil on 09-12-2024 Mucus Ql (Urine sed) 0 SEEN /hpf [facility] Nitrite Test strip Ql (U)Ord ered By: Nichelle Mcneil on 09-12-2024 Nitrite Ql (U) Negative Negative [facility] Platelet estimateOrdered By: Brenda Posadas on 09-12-2024 Platelets LM Ql (Bld) ADEQUATE ADEQ [facility] Platelets LM Ql (Bld)Ordered By: Brenda Posadas on 09-12-2024 [facility] Protein Test strip Ql (U)Ord ered By: Nichelle Mcneil on 09-12-2024 Protein Ql (U) 15 mg/dl High Negative [facility] Urine protein assay by test strip, semi-quantitative 15 mg/dl High Negative [facility] Specific gravity (U) [Rel de nsity]Ordered By: Nichelle Mcneil on 09-12-2024 Urine specific gravity measurement 1.010 1.002-1.03 0 [facility] Squamous epithelial cells de tection in urine sediment by light microscopyOrdered By: Nichelle Mcneil on 09-12-2024 Epithelial cells.squamous LM Ql (Urine sed) 0-5 SEEN /hpf 5-10 [facility] Urinalysis, Completeon 09-12 EPI,SQUAMOUS 0-5 SEEN Normal - [facility] Comment on above: Order Comment: CLEAN CATCH Performed By: #### L 400.0001, M100.2200 ####[facility] [address] [place], [address] YEAST 1+ /hpf Normal None Seen [facility] Comment on above: Order Comment: CLEAN CATCH Performed By: #### L 400.0001, M100.2200 ####[facility] [address] [place], [address] BACTERIA 0 SEEN Normal None Seen [facility] Comment on above: Order Comment: CLEAN CATCH Performed By: #### L 400.0001, M100.2200 ####[facility] [address] [place], [address] Mucus Ql (Urine sed) 0 SEEN Normal [facility] Comment on above: Order Comment: CLEAN CATCH Performed By: #### L 400.0001, M100.2200 ####[facility] [address] [place], [address] RBC 0 SEEN Normal 0-5 [facility] Comment on above: Order Comment: CLEAN CATCH Performed By: #### L 400.0001, M100.0 ####[facility] [address] [place], [address] WBC 0 SEEN Normal 0-5 [facility] Comment on above: Order Comment: CLEAN CATCH Performed By: #### L 400.0001, M100.2200 ####[facility] [address] [place], [address] Urine clarityOrdered By: Travis Mcneil on 09-12-2024 Clarity (U) Clear Clear [facility] Urine color determinationOrd ered By: Nichelle Mcneil on 09-12-2024 Color (U) Straw Yellow [facility] Urine cultureOrdered By: Travis Mcneil on 09-12-2024 Bacteria identified Cx Nom (U) Yeast, not Ashley albicans Abnormal [facility] Urine culture Yeast, not Ashley albicans Abnormal [facility] Urine glucose detectionOrder ed By: Nichelle Mcneil on 09-12-2024 Glucose Ql (U) 1000 mg/dl High Normal [facility] Urine leukocyte esterase det ection by dipstickOrdered By: Nichelle Mcneil on 09-12-2024 Leukocyte esterase Test strip Ql (U) Negative Negative [facility] Urine pHOrdered By: Nichelle pacheco on 09-12-2024 pH (U) 6.0 [pH] 5.0 - 8.0 [facility] Urine sediment bacteria coun t by microscopy (number/high power field)Ordered By: Nichelle Mcneil on 09-12-2024 Bacteria LM.HPF (Urine sed) [#/Area] 0 /[HPF] None Seen [facility] Urine sediment yeast count b y microscopy (number/high powered field)Ordered By: Nichelle Mcneil on 09-12-2024 Yeast LM.HPF (Urine sed) [#/Area] 1 /[HPF] None Seen [facility] Urine specific gravity measu rementOrdered By: Nichelle Mcneil on 09-12-2024 Specific gravity (U) [Rel density] 1.010 1.002-1.03 0 [facility] Urine total bilirubin detect ion by test stripOrdered By: Nichelle Mcneil on 09-12-2024 Urine total bilirubin detection by test strip Negative Negative [facility] Urine urobilinogen measureme ntOrdered By: Nichelle Mcneil on 09-12-2024 Urobilinogen Ql (U) Normal mg/dl Normal [facility] Urobilinogen Ql (U)Ordered B y: Nichelle Mcneil on 09-12-2024 Urine urobilinogen measurement Normal mg/dl Normal [facility] White blood cell countOrdere d By: Nichelle Mcneil on 09-12-2024 White blood cell count 0 SEEN /hpf 0-5 W [facility] White blood cell count 0 SEEN /hpf W [facility] Yeast LM.HPF (Urine sed) [#/ Area]Ordered By: Nichelle Mcneil on 09-12-2024 Urine sediment yeast count by microscopy (number/high powered field) 1+ /hpf None Seen [facility] pH (U)Ordered By: Nichelle butler on 09-12-2024 Urine pH 6.0 5.0 - 8.0 [facility] Abdomen Single View (Portabl e)on 09-11-2024 Abdomen Single View (Portable) Normal [facility] Basic Metabolic Profile (BMP )on 09-11-2024 BUN/CRE 21.7 RATIO High 10-20 [facility] Comment on above: Performed By: #### L 500.2500, L100.0100 ####[facility] [address] [place], [address] Calcium [Mass/Vol] 9.0 mg/dL Normal 7.6-11.0 [facility] Comment on above: Performed By: #### L 500.2500, L100.0100 ####[facility] [address] [place], [address] Chloride [Moles/Vol] 104 mmol/L Normal 98-108 [facility] Comment on above: Performed By: #### L 500.2500, L100.0100 ####[facility] [address] [place], [address] CO2 [Moles/Vol] 21.7 mmol/L Normal 21.0-32.0 [facility] Comment on above: Performed By: #### L 500.2500, L100.0100 ####[facility] [address] [place], [address] Creatinine [Mass/Vol] 0.84 mg/dL Normal 0.70-1.20 [facility] Comment on above: Performed By: #### L 500.2500, L100.0100 ####[facility] [address] [place], [address] ECRCL 85.20 ml/min Normal 50-250 [facility] Comment on above: Performed By: #### L 500.2500, L100.0100 ####[facility] [address] [place], [address] GAP 11 Normal 5-15 [facility] Comment on above: Performed By: #### L 500.2500, L100.0100 ####[facility] [address] [place], [address] GFR/1.73 sq M.predicted among non-blacks MDRD (S/P/Bld) [Vol rate/Area] 84 mL/min/{1.73_m2} Normal >60 [facility] Comment on above: Result Comment: mL/m in/1.73m2 CKD-EPI Creatinine Equation (2020) Performed By: #### L 500.2500, L100.0100 ####[facility] [address] [place], [address] Glucose [Mass/Vol] 171 mg/dL High 70-99 [facility] Comment on above: Performed By: #### L 500.2500, L100.0100 ####[facility] [address] [place], [address] Potassium [Moles/Vol] 4.0 mmol/L Normal 3.3-5.1 [facility] Comment on above: Performed By: #### L 500.2500, L100.0100 ####[facility] [address] [place], [address] Sodium [Moles/Vol] 136 mmol/L Normal 133-145 [facility] Comment on above: Performed By: #### L 500.2500, L100.0100 ####[facility] [address] [place], [address] Urea nitrogen [Mass/Vol] 18 mg/dL Normal 4-19 [facility] Comment on above: Performed By: #### L 500.2500, L100.0100 ####[facility] [address] [place], [address] Bedside Glucoseon 09-11-2024 FINGERSTICK GLU 114 mg/dL High 74-106 [facility] Comment on above: Result Comment: TALIA CHAMBERS OF PATIENT CARE PER NURSING PROTOCOL Performed By: #### L 501.080 ####[facility] [address] [place], [address] FINGERSTICK GLU 338 mg/dL High 74-106 [facility] Comment on above: Result Comment: TALIA GEMENT OF PATIENT CARE PER NURSING PROTOCOL Performed By: #### L 501.080 ####[facility] [address] [place], [address] FINGERSTICK GLU 142 mg/dL High 74-106 [facility] Comment on above: Result Comment: TALIA GEMENT OF PATIENT CARE PER NURSING PROTOCOL Performed By: #### L 501.080 ####[facility] [address] [place], [address] CBC W/Diff, Automatedon 09-02 0-2024 Absolute Lymph 2.26 X10 3/uL Normal 0.83-4.51 [facility] Comment on above: Performed By: #### L 500.2500, L100.0100 ####[facility] [address] [place], [address] Absolute Neut 6.8 X10 3/uL Normal 2.0-7.7 [facility] Comment on above: Performed By: #### L 500.2500, L100.0100 ####[facility] [address] [place], [address] Basophils/100 WBC (Bld) 0.6 % Normal 0-1 [facility] Comment on above: Performed By: #### L 500.2500, L100.0100 ####[facility] [address] [place], [address] Eosinophils/100 WBC (Bld) 1.9 % Normal 0-5 [facility] Comment on above: Performed By: #### L 500.2500, L100.0100 ####[facility] [address] [place], [address] Erythrocyte distribution width (RBC) [Ratio] 14.0 % Normal 11.6-14.6 [facility] Comment on above: Performed By: #### L 500.2500, L100.0100 ####[facility] [address] [place], [address] Hematocrit (Bld) [Volume fraction] 33.1 % Low 37-47 [facility] Comment on above: Performed By: #### L 500.2500, L100.0100 ####[facility] [address] [place], [address] Hemoglobin (Bld) [Mass/Vol] 11.0 g/dL Low 12.0-15.0 [facility] Comment on above: Performed By: #### L 500.2500, L100.0100 ####[facility] [address] [place], [address] IG% 0.600 Normal 0.0-0.9 [facility] Comment on above: Result Comment: IG% - Immature Granulocytes (promyelocytes, myelocytes andmetamyelocytes) > 1% indicates that a LEFT SHIFT is Present. Performed By: #### L 500.2500, L100.0100 ####[facility] [address] [place], [address] Lymphocytes/100 WBC (Bld) 22.6 % Normal 19-41 [facility] Comment on above: Performed By: #### L 500.2500, L100.0100 ####[facility] [address] [place], [address] MCH (RBC) [Entitic mass] 28.1 pg Normal 27.0-32.0 [facility] Comment on above: Performed By: #### L 500.2500, L100.0100 ####[facility] [address] [place], [address] MCHC (RBC) [Mass/Vol] 33.2 g/dL Normal 32-36 [facility] Comment on above: Performed By: #### L 500.2500, L100.0100 ####[facility] [address] [place], [address] MCV (RBC) [Entitic vol] 84.4 fL Normal 81-99 [facility] Comment on above: Performed By: #### L 500.2500, L100.0100 ####[facility] [address] [place], [address] Monocytes/100 WBC (Bld) 6.3 % Normal 0-10 [facility] Comment on above: Performed By: #### L 500.2500, L100.0100 ####[facility] [address] [place], [address] Neutrophils/100 WBC (Bld) 68.0 % Normal 47-70 [facility] Comment on above: Performed By: #### L 500.2500, L100.0100 ####[facility] [address] [place], [address] Nucleated RBC (Bld) [#/Vol] 0 10*3/uL Normal 0-5 [facility] Comment on above: Performed By: #### L 500.2500, L100.0100 ####[facility] [address] [place], [address] Platelet mean volume (Bld) [Entitic vol] 9.9 fL Normal 6.2-12.0 [facility] Comment on above: Performed By: #### L 500.2500, L100.0100 ####[facility] [address] [place], [address] Platelets (Bld) [#/Vol] 252 10*3/uL Normal 150-450 [facility] Comment on above: Performed By: #### L 500.2500, L100.0100 ####[facility] [address] [place], [address] RBC (Bld) [#/Vol] 3.92 10*6/uL Low 4.2-5.4 [facility] Comment on above: Performed By: #### L 500.2500, L100.0100 ####[facility] [address] [place], [address] RDW SD 43.2 fl Normal 35.1-43.9 [facility] Comment on above: Performed By: #### L 500.2500, L100.0100 ####[facility] [address] [place], [address] WBC (Bld) [#/Vol] 10.0 10*3/uL Normal 4.4-11.0 [facility] Comment on above: Performed By: #### L 500.2500, L100.0100 ####[facility] [address] [place], [address] Urine Cultureon 09-11-2024 URC Below infection leve l. Presumptive E. coli [place] Count <1000 Normal [facility] Comment on above: Performed By: #### M 100.2200 ####[facility] [address] [place], [address] Vitamin D 1,25-Dihydroxyon 0 09-11-2024 VIT D 1,25 DIHY 29.9 pg/mL Normal 24.8-81.5 [facility] Comment on above: Result Comment: Perf ormed at: BN - [facility] [address] [id number] Director: Karlee Oro MD, Phone: [phone] Performed By: #### L 3300.0960, L501.9520, L506.1001, L100.0100, L500.4050, L509.1000 ####[facility] [address] [place], [address] Basic Metabolic Profile (BMP )on 09-10-2024 BUN/CRE 18.2 RATIO Normal 10-20 [facility] Comment on above: Performed By: #### L 100.0100, L500.2500 ####[facility] [address] [place], [address] Calcium [Mass/Vol] 8.7 mg/dL Normal 7.6-11.0 [facility] Comment on above: Performed By: #### L 100.0100, L500.2500 ####[facility] [address] [place], [address] Chloride [Moles/Vol] 105 mmol/L Normal 98-108 [facility] Comment on above: Performed By: #### L 100.0100, L500.2500 ####[facility] [address] [place], [address] CO2 [Moles/Vol] 23.5 mmol/L Normal 21.0-32.0 [facility] Comment on above: Performed By: #### L 100.0100, L500.2500 ####[facility] [address] [place], [address] Creatinine [Mass/Vol] 1.00 mg/dL Normal 0.70-1.20 [facility] Comment on above: Performed By: #### L 100.0100, L500.2500 ####[facility] [address] [place], [address] ECRCL 71.49 ml/min Normal 50-250 [facility] Comment on above: Performed By: #### L 100.0100, L500.2500 ####[facility] [address] [place], [address] GAP 8 Normal 5-15 [facility] Comment on above: Performed By: #### L 100.0100, L500.2500 ####[facility] [address] [place], [address] GFR/1.73 sq M.predicted among non-blacks MDRD (S/P/Bld) [Vol rate/Area] 68 mL/min/{1.73_m2} Normal >60 [facility] Comment on above: Result Comment: mL/m in/1.73m2 CKD-EPI Creatinine Equation (2020) Performed By: #### L 100.0100, L500.2500 ####[facility] [address] [place], [address] Glucose [Mass/Vol] 251 mg/dL High 70-99 [facility] Comment on above: Performed By: #### L 100.0100, L500.2500 ####[facility] [address] [place], [address] Potassium [Moles/Vol] 4.4 mmol/L Normal 3.3-5.1 [facility] Comment on above: Performed By: #### L 100.0100, L500.2500 ####[facility] [address] [place], [address] Sodium [Moles/Vol] 136 mmol/L Normal 133-145 [facility] Comment on above: Performed By: #### L 100.0100, L500.2500 ####[facility] [address] [place], [address] Urea nitrogen [Mass/Vol] 18 mg/dL Normal 4-19 [facility] Comment on above: Performed By: #### L 100.0100, L500.2500 ####[facility] [address] [place], [address] Bedside Glucoseon 09-10-2024 FINGERSTICK GLU 241 mg/dL High 74-106 [facility] Comment on above: Result Comment: TALIA GEMENT OF PATIENT CARE PER NURSING PROTOCOL Performed By: #### L 501.080 ####[facility] [address] [place], [address] FINGERSTICK GLU 149 mg/dL High 74-106 [facility] Comment on above: Result Comment: TALIA GEMENT OF PATIENT CARE PER NURSING PROTOCOL Performed By: #### L 501.080 ####[facility] [address] [place], [address] FINGERSTICK GLU 250 mg/dL High 74-106 [facility] Comment on above: Result Comment: TALIA GEMENT OF PATIENT CARE PER NURSING PROTOCOL Performed By: #### L 501.080 ####[facility] [address] [place], [address] FINGERSTICK GLU 234 mg/dL High 74-106 [facility] Comment on above: Result Comment: TALIA GEMENT OF PATIENT CARE PER NURSING PROTOCOL Performed By: #### L 501.080 ####[facility] [address] [place], [address] CBC W/Diff, Automatedon 04-0 9-2024 Absolute Lymph 1.84 X10 3/uL Normal 0.83-4.51 [facility] Comment on above: Performed By: #### L 100.0100, L500.2500 ####[facility] [address] [place], [address] Absolute Neut 7.2 X10 3/uL Normal 2.0-7.7 [facility] Comment on above: Performed By: #### L 100.0100, L500.2500 ####[facility] [address] [place], [address] Basophils/100 WBC (Bld) 0.6 % Normal 0-1 [facility] Comment on above: Performed By: #### L 100.0100, L500.2500 ####[facility] [address] [place], [address] Eosinophils/100 WBC (Bld) 1.6 % Normal 0-5 [facility] Comment on above: Performed By: #### L 100.0100, L500.2500 ####[facility] [address] [place], [address] Erythrocyte distribution width (RBC) [Ratio] 14.1 % Normal 11.6-14.6 [facility] Comment on above: Performed By: #### L 100.0100, L500.2500 ####[facility] [address] [place], [address] Hematocrit (Bld) [Volume fraction] 33.4 % Low 37-47 [facility] Comment on above: Performed By: #### L 100.0100, L500.2500 ####[facility] [address] [place], [address] Hemoglobin (Bld) [Mass/Vol] 11.0 g/dL Low 12.0-15.0 [facility] Comment on above: Performed By: #### L 100.0100, L500.2500 ####[facility] [address] [place], [address] IG% 0.500 Normal 0.0-0.9 [facility] Comment on above: Result Comment: IG% - Immature Granulocytes (promyelocytes, myelocytes andmetamyelocytes) > 1% indicates that a LEFT SHIFT is Present. Performed By: #### L 100.0100, L500.2500 ####[facility] [address] [place], [address] Lymphocytes/100 WBC (Bld) 18.5 % Low 19-41 [facility] Comment on above: Performed By: #### L 100.0100, L500.2500 ####[facility] [address] [place], [address] MCH (RBC) [Entitic mass] 27.9 pg Normal 27.0-32.0 [facility] Comment on above: Performed By: #### L 100.0100, L500.2500 ####[facility] [address] [place], [address] MCHC (RBC) [Mass/Vol] 32.9 g/dL Normal 32-36 [facility] Comment on above: Performed By: #### L 100.0100, L500.2500 ####[facility] [address] [place], [address] MCV (RBC) [Entitic vol] 84.8 fL Normal 81-99 [facility] Comment on above: Performed By: #### L 100.0100, L500.2500 ####[facility] [address] [place], [address] Monocytes/100 WBC (Bld) 6.0 % Normal 0-10 [facility] Comment on above: Performed By: #### L 100.0100, L500.2500 ####[facility] [address] [place], [address] Neutrophils/100 WBC (Bld) 72.8 % High 47-70 [facility] Comment on above: Performed By: #### L 100.0100, L500.2500 ####[facility] [address] [place], [address] Nucleated RBC (Bld) [#/Vol] 0 10*3/uL Normal 0-5 [facility] Comment on above: Performed By: #### L 100.0100, L500.2500 ####[facility] [address] [place], [address] Platelet mean volume (Bld) [Entitic vol] 9.9 fL Normal 6.2-12.0 [facility] Comment on above: Performed By: #### L 100.0100, L500.2500 ####[facility] [address] [place], [address] Platelets (Bld) [#/Vol] 245 10*3/uL Normal 150-450 [facility] Comment on above: Performed By: #### L 100.0100, L500.2500 ####[facility] [address] [place], [address] RBC (Bld) [#/Vol] 3.94 10*6/uL Low 4.2-5.4 [facility] Comment on above: Performed By: #### L 100.0100, L500.2500 ####[facility] [address] [place], [address] RDW SD 43.5 fl Normal 35.1-43.9 [facility] Comment on above: Performed By: #### L 100.0100, L500.2500 ####[facility] [address] [place], [address] WBC (Bld) [#/Vol] 10.0 10*3/uL Normal 4.4-11.0 [facility] Comment on above: Performed By: #### L 100.0100, L500.2500 ####[facility] [address] [place], [address] Basic Metabolic Profile (BMP )on 09-09-2024 BUN/CRE 14.8 RATIO Normal 10-20 [facility] Comment on above: Performed By: #### L 500.2500, L100.0100, L501.5200 ####[facility] [address] [place], [address] Calcium [Mass/Vol] 8.5 mg/dL Normal 7.6-11.0 [facility] Comment on above: Performed By: #### L 500.2500, L100.0100, L501.5200 ####[facility] [address] [place], [address] Chloride [Moles/Vol] 104 mmol/L Normal 98-108 [facility] Comment on above: Performed By: #### L 500.2500, L100.0100, L501.5200 ####[facility] [address] [place], [address] CO2 [Moles/Vol] 16.0 mmol/L Low 21.0-32.0 [facility] Comment on above: Performed By: #### L 500.2500, L100.0100, L501.5200 ####[facility] [address] [place], [address] Creatinine [Mass/Vol] 0.99 mg/dL Normal 0.70-1.20 [facility] Comment on above: Performed By: #### L 500.2500, L100.0100, L501.5200 ####[facility] [address] [place], [address] ECRCL 72.12 ml/min Normal 50-250 [facility] Comment on above: Performed By: #### L 500.2500, L100.0100, L501.5200 ####[facility] [address] [place], [address] GAP 13 Normal 5-15 [facility] Comment on above: Performed By: #### L 500.2500, L100.0100, L501.5200 ####[facility] [address] [place], [address] GFR/1.73 sq M.predicted among non-blacks MDRD (S/P/Bld) [Vol rate/Area] 68 mL/min/{1.73_m2} Normal >60 [facility] Comment on above: Result Comment: mL/m in/1.73m2 CKD-EPI Creatinine Equation (2020) Performed By: #### L 500.2500, L100.0100, L501.5200 ####[facility] [address] [place], [address] Glucose [Mass/Vol] 156 mg/dL High 70-99 [facility] Comment on above: Performed By: #### L 500.2500, L100.0100, L501.5200 ####[facility] [address] [place], [address] Potassium [Moles/Vol] 3.7 mmol/L Normal 3.3-5.1 [facility] Comment on above: Performed By: #### L 500.2500, L100.0100, L501.5200 ####[facility] [address] [place], [address] Sodium [Moles/Vol] 132 mmol/L Low 133-145 [facility] Comment on above: Performed By: #### L 500.2500, L100.0100, L501.5200 ####[facility] [address] [place], [address] Urea nitrogen [Mass/Vol] 15 mg/dL Normal 4-19 [facility] Comment on above: Performed By: #### L 500.2500, L100.0100, L501.5200 ####[facility] [address] [place], [address] Bedside Glucoseon 09-09-2024 FINGERSTICK GLU 193 mg/dL High 74-106 [facility] Comment on above: Result Comment: TALIA GEMENT OF PATIENT CARE PER NURSING PROTOCOL Performed By: #### L 501.080 ####[facility] [address] [place], [address] FINGERSTICK GLU 227 mg/dL High 74-106 [facility] Comment on above: Result Comment: TALIA GEMENT OF PATIENT CARE PER NURSING PROTOCOL Performed By: #### L 501.080 ####[facility] [address] [place], [address] FINGERSTICK GLU 228 mg/dL High 74-106 [facility] Comment on above: Result Comment: TALIA GEMENT OF PATIENT CARE PER NURSING PROTOCOL Performed By: #### L 501.080 ####[facility] [address] [place], [address] FINGERSTICK GLU 194 mg/dL High 74-106 [facility] Comment on above: Result Comment: TALIA GEMENT OF PATIENT CARE PER NURSING PROTOCOL Performed By: #### L 501.080 ####[facility] [address] [place], [address] CBC W/Diff, Automatedon 04-0 8-2024 Absolute Lymph 2.64 X10 3/uL Normal 0.83-4.51 [facility] Comment on above: Performed By: #### L 500.2500, L100.0100, L501.5200 ####[facility] [address] [place], [address] Absolute Neut 7.4 X10 3/uL Normal 2.0-7.7 [facility] Comment on above: Performed By: #### L 500.2500, L100.0100, L501.5200 ####[facility] [address] [place], [address] Basophils/100 WBC (Bld) 0.7 % Normal 0-1 [facility] Comment on above: Performed By: #### L 500.2500, L100.0100, L501.5200 ####[facility] [address] [place], [address] Eosinophils/100 WBC (Bld) 2.3 % Normal 0-5 [facility] Comment on above: Performed By: #### L 500.2500, L100.0100, L501.5200 ####[facility] [address] [place], [address] Erythrocyte distribution width (RBC) [Ratio] 14.0 % Normal 11.6-14.6 [facility] Comment on above: Performed By: #### L 500.2500, L100.0100, L501.5200 ####[facility] [address] [place], [address] Hematocrit (Bld) [Volume fraction] 32.6 % Low 37-47 [facility] Comment on above: Performed By: #### L 500.2500, L100.0100, L501.5200 ####[facility] [address] [place], [address] Hemoglobin (Bld) [Mass/Vol] 10.9 g/dL Low 12.0-15.0 [facility] Comment on above: Performed By: #### L 500.2500, L100.0100, L501.5200 ####[facility] [address] [place], [address] IG% 0.500 Normal 0.0-0.9 [facility] Comment on above: Result Comment: IG% - Immature Granulocytes (promyelocytes, myelocytes andmetamyelocytes) > 1% indicates that a LEFT SHIFT is Present. Performed By: #### L 500.2500, L100.0100, L501.5200 ####[facility] [address] [place], [address] Lymphocytes/100 WBC (Bld) 23.9 % Normal 19-41 [facility] Comment on above: Performed By: #### L 500.2500, L100.0100, L501.5200 ####[facility] [address] [place], [address] MCH (RBC) [Entitic mass] 28.5 pg Normal 27.0-32.0 [facility] Comment on above: Performed By: #### L 500.2500, L100.0100, L501.5200 ####[facility] [address] [place], [address] MCHC (RBC) [Mass/Vol] 33.4 g/dL Normal 32-36 [facility] Comment on above: Performed By: #### L 500.2500, L100.0100, L501.5200 ####[facility] [address] [place], [address] MCV (RBC) [Entitic vol] 85.1 fL Normal 81-99 [facility] Comment on above: Performed By: #### L 500.2500, L100.0100, L501.5200 ####[facility] [address] [place], [address] Monocytes/100 WBC (Bld) 5.5 % Normal 0-10 [facility] Comment on above: Performed By: #### L 500.2500, L100.0100, L501.5200 ####[facility] [address] [place], [address] Neutrophils/100 WBC (Bld) 67.1 % Normal 47-70 [facility] Comment on above: Performed By: #### L 500.2500, L100.0100, L501.5200 ####[facility] [address] [place], [address] Nucleated RBC (Bld) [#/Vol] 0 10*3/uL Normal 0-5 [facility] Comment on above: Performed By: #### L 500.2500, L100.0100, L501.5200 ####[facility] [address] [place], [address] Platelet mean volume (Bld) [Entitic vol] 9.6 fL Normal 6.2-12.0 [facility] Comment on above: Performed By: #### L 500.2500, L100.0100, L501.5200 ####[facility] [address] [place], [address] Platelets (Bld) [#/Vol] 247 10*3/uL Normal 150-450 [facility] Comment on above: Performed By: #### L 500.2500, L100.0100, L501.5200 ####[facility] [address] [place], [address] RBC (Bld) [#/Vol] 3.83 10*6/uL Low 4.2-5.4 [facility] Comment on above: Performed By: #### L 500.2500, L100.0100, L501.5200 ####[facility] [address] [place], [address] RDW SD 43.3 fl Normal 35.1-43.9 [facility] Comment on above: Performed By: #### L 500.2500, L100.0100, L501.5200 ####[facility] [address] [place], [address] WBC (Bld) [#/Vol] 11.0 10*3/uL Normal 4.4-11.0 [facility] Comment on above: Performed By: #### L 500.2500, L100.0100, L501.5200 ####[facility] [address] [place], [address] Magnesiumon 09-09-2024 Magnesium [Mass/Vol] 2.9 mg/dL High 1.5-2.2 [facility] Comment on above: Performed By: #### L 500.2500, L100.0100, L501.5200 ####[facility] [address] [place], [address] Magnesium (Unsp spec) [Mass/ Vol]Ordered By: Brenda Posadas on 09-09-2024 Magnesium measurement (mass/volume) 2.9 mg/dL High 1.5-2.2 [facility] Magnesium measurement (mass/ volume)Ordered By: Brenda Posadas on 09-09-2024 Magnesium (Unsp spec) [Mass/Vol] 2.9 mg/dL High 1.5-2.2 [facility] Phosphoruson 09-09-2024 Phosphate [Mass/Vol] 3.2 mg/dL Normal 2.7-4.5 [facility] Comment on above: Performed By: #### L 501.2300 ####[facility] [address] [place], [address] Serum phosphorus measurement Ordered By: Brenda Posadas on 09-09-2024 Serum phosphorus measurement 3.2 mg/dL 2.7-4.5 [facility] Urinalysis, Completeon 09-09 BACTERIA 1+ /hpf Normal None Seen [facility] Comment on above: Order Comment: CLEAN CATCH Performed By: #### L 400.0001 ####[facility] [address] [place], [address] WBC 0-5 SEEN Normal 0-5 [facility] Comment on above: Order Comment: CLEAN CATCH Performed By: #### L 400.0001 ####[facility] [address] [place], [address] EPI,SQUAMOUS 0 SEEN Normal 5-10 [facility] Comment on above: Order Comment: CLEAN CATCH Performed By: #### L 400.0001 ####[facility] [address] [place], [address] Mucus Ql (Urine sed) 0 SEEN Normal [facility] Comment on above: Order Comment: CLEAN CATCH Performed By: #### L 400.0001 ####[facility] [address] [place], [address] RBC 0 SEEN Normal 0-5 [facility] Comment on above: Order Comment: CLEAN CATCH Performed By: #### L 400.0001 ####[facility] [address] [place], [address] Urine cultureOrdered By: Lake Posadas on 09-09-2024 Bacteria identified Cx Nom (U) Presumptive E. coli Abnormal [facility] Urine culture Presumptive E. coli Abnormal [facility] 1,25-dihydroxyvitamin D3 [Ma ss/Vol]Ordered By: Rosaura Crane on 09-08-2024 Serum or plasma calcitriol measurement (mass/volume) 29.9 pg/mL 24.8-81.5 [facility] ALP [Catalytic activity/Vol] Ordered By: Rosaura Crane on 09-08-2024 Serum or plasma alkaline phosphatase measurement 105 U/L High 35-104 [facility] ALT [Catalytic activity/Vol] Ordered By: Rosaura Crane on 09-08-2024 Serum or plasma alanine aminotransferase (ALT) measurement 14 U/L <35 [facility] Albumin [Mass/Vol]Ordered By : Rosaura Crane on 09-08-2024 Serum or plasma albumin measurement (mass/volume) 3.1 g/dL Low 3.5-5.0 [facility] Albumin/Globulin [Mass ratio ]Ordered By: Rosaura Crane on 09-08-2024 Serum or plasma albumin/globulin mass ratio 1.2 RATIO 0.9-2.4 [facility] Basic Metabolic Profile (BMP )on 09-08-2024 BUN/CRE 17.5 RATIO Normal 10-20 [facility] Comment on above: Performed By: #### L 500.2500 ####[facility] [address] [facility] [address] Calcium [Mass/Vol] 9.2 mg/dL Normal 7.6-11.0 [facility] Comment on above: Performed By: #### L 500.2500 ####[facility] [address] [place], [address] Chloride [Moles/Vol] 100 mmol/L Normal 98-108 [facility] Comment on above: Performed By: #### L 500.2500 ####[facility] [address] [place], [address] CO2 [Moles/Vol] 21.1 mmol/L Normal 21.0-32.0 [facility] Comment on above: Performed By: #### L 500.2500 ####[facility] [address] [place], [address] Creatinine [Mass/Vol] 0.89 mg/dL Normal 0.70-1.20 [facility] Comment on above: Performed By: #### L 500.2500 ####[facility] [address] [place], [address] ECRCL 77.55 ml/min Normal 50-250 [facility] Comment on above: Performed By: #### L 500.2500 ####[facility] [address] [place], [address] GAP 13 Normal 5-15 [facility] Comment on above: Performed By: #### L 500.2500 ####[facility] [address] [place], [address] GFR/1.73 sq M.predicted among non-blacks MDRD (S/P/Bld) [Vol rate/Area] 78 mL/min/{1.73_m2} Normal >60 [facility] Comment on above: Result Comment: mL/m in/1.73m2 CKD-EPI Creatinine Equation (2020) Performed By: #### L 500.2500 ####[facility] [address] [place], [address] Glucose [Mass/Vol] 266 mg/dL High 70-99 [facility] Comment on above: Performed By: #### L 500.2500 ####[facility] [address] [place], [address] Potassium [Moles/Vol] 3.2 mmol/L Low 3.3-5.1 [facility] Comment on above: Performed By: #### L 500.2500 ####[facility] [address] [place], [address] Sodium [Moles/Vol] 134 mmol/L Normal 133-145 [facility] Comment on above: Performed By: #### L 500.2500 ####[facility] [address] [place], [address] Urea nitrogen [Mass/Vol] 16 mg/dL Normal 4-19 [facility] Comment on above: Performed By: #### L 500.2500 ####[facility] [address] [place], [address] Bedside Glucoseon 09-08-2024 FINGERSTICK GLU 245 mg/dL High 74-106 [facility] Comment on above: Result Comment: TALIA CHAMBERS OF PATIENT CARE PER NURSING PROTOCOL Performed By: #### L 501.080 ####[facility] [address] [place], [address] FINGERSTICK GLU 245 mg/dL High 74-106 [facility] Comment on above: Result Comment: TALIA GEMENT OF PATIENT CARE PER NURSING PROTOCOL Performed By: #### L 501.080 ####[facility] [address] [place], [address] FINGERSTICK GLU 418 mg/dL High 74-106 [facility] Comment on above: Result Comment: TALIA GEMENT OF PATIENT CARE PER NURSING PROTOCOL Performed By: #### L 501.080 ####[facility] [address] [place], [address] FINGERSTICK GLU 211 mg/dL High -106 [facility] Comment on above: Result Comment: TALIA GEMENT OF PATIENT CARE PER NURSING PROTOCOL Performed By: #### L 501.080 ####[facility] [address] [place], [address] FINGERSTICK GLU 249 mg/dL High [facility]106 [facility] Comment on above: Result Comment: TALIA GEMENT OF PATIENT CARE PER NURSING PROTOCOL Performed By: #### L 501.080 ####[facility] [address] [place], [address] FINGERSTICK GLU 205 mg/dL High [address] [place] [address] Comment on above: Result Comment: TALIA GEMENT OF PATIENT CARE PER NURSING PROTOCOL Performed By: #### L 501.080 ####[facility] [address] [place], [address] FINGERSTICK GLU 250 mg/dL High -106 [facility] Comment on above: Result Comment: TALIA GEMENT OF PATIENT CARE PER NURSING PROTOCOL Performed By: #### L 501.080 ####[facility] [address] [place], [address] Bilirubin, totalOrdered By: Rosaura Crane on 09-08-2024 Bilirubin [Mass/Vol] 0.65 mg/dL 0.00-1.30 [facility] Bilirubin, total 0.65 mg/dL 0.00-1.30 [facility] Blood cultureOrdered By: Lake Posadas on 09-08-2024 Bacteria identified Cx Nom (Bld) No growth in 5 days. [facility] Blood culture No growth in 5 days. [facility] Bacteria identified Cx Nom (Bld) No growth in 5 days. [facility] Blood culture No growth in 5 days. [facility] CBC W/Diff, Automatedon 04-0 Absolute Lymph 2.06 X10 3/uL Normal 0.83-4.51 [facility] Comment on above: Performed By: #### L 3300.0960, L501.9520, L506.1001, L100.0100, L500.4050, L509.1000 ####[facility] [address] [place], [address] Absolute Neut 5.2 X10 3/uL Normal 2.0-7.7 [facility] Comment on above: Performed By: #### L 3300.0960, L501.9520, L506.1001, L100.0100, L500.4050, L509.1000 ####[facility] [address] [place], [address] Basophils/100 WBC (Bld) 0.9 % Normal 0-1 [facility] Comment on above: Performed By: #### L 3300.0960, L501.9520, L506.1001, L100.0100, L500.4050, L509.1000 ####[facility] [address] [place], [address] Eosinophils/100 WBC (Bld) 2.4 % Normal 0-5 [facility] Comment on above: Performed By: #### L 3300.0960, L501.9520, L506.1001, L100.0100, L500.4050, L509.1000 ####[facility] [address] [place], [address] Erythrocyte distribution width (RBC) [Ratio] 13.5 % Normal 11.6-14.6 [facility] Comment on above: Performed By: #### L 3300.0960, L501.9520, L506.1001, L100.0100, L500.4050, L509.1000 ####[facility] [address] [place], [address] Hematocrit (Bld) [Volume fraction] 36.8 % Low 37-47 [facility] Comment on above: Performed By: #### L 3300.0960, L501.9520, L506.1001, L100.0100, L500.4050, L509.1000 ####[facility] [address] [place], [address] Hemoglobin (Bld) [Mass/Vol] 12.2 g/dL Normal 12.0-15.0 [facility] Comment on above: Performed By: #### L 3300.0960, L501.9520, L506.1001, L100.0100, L500.4050, L509.1000 ####[facility] [address] [place], [address] IG% 0.400 Normal 0.0-0.9 [facility] Comment on above: Result Comment: IG% - Immature Granulocytes (promyelocytes, myelocytes andmetamyelocytes) > 1% indicates that a LEFT SHIFT is Present. Performed By: #### L 3300.0960, L501.9520, L506.1001, L100.0100, L500.4050, L509.1000 ####[facility] [address] [place], [address] Lymphocytes/100 WBC (Bld) 25.7 % Normal 19-41 [facility] Comment on above: Performed By: #### L 3300.0960, L501.9520, L506.1001, L100.0100, L500.4050, L509.1000 ####[facility] [address] [place], [address] MCH (RBC) [Entitic mass] 27.6 pg Normal 27.0-32.0 [facility] Comment on above: Performed By: #### L 3300.0960, L501.9520, L506.1001, L100.0100, L500.4050, L509.1000 ####[facility] [address] [place], [address] MCHC (RBC) [Mass/Vol] 33.2 g/dL Normal 32-36 [facility] Comment on above: Performed By: #### L 3300.0960, L501.9520, L506.1001, L100.0100, L500.4050, L509.1000 ####[facility] [address] [place], [address] MCV (RBC) [Entitic vol] 83.3 fL Normal 81-99 [facility] Comment on above: Performed By: #### L 3300.0960, L501.9520, L506.1001, L100.0100, L500.4050, L509.1000 ####[facility] [address] [place], [address] Monocytes/100 WBC (Bld) 6.0 % Normal 0-10 [facility] Comment on above: Performed By: #### L 3300.0960, L501.9520, L506.1001, L100.0100, L500.4050, L509.1000 ####[facility] [address] [place], [address] Neutrophils/100 WBC (Bld) 64.6 % Normal 47-70 [facility] Comment on above: Performed By: #### L 3300.0960, L501.9520, L506.1001, L100.0100, L500.4050, L509.1000 ####[facility] [address] [place], [address] Nucleated RBC (Bld) [#/Vol] 0 10*3/uL Normal 0-5 [facility] Comment on above: Performed By: #### L 3300.0960, L501.9520, L506.1001, L100.0100, L500.4050, L509.1000 ####[facility] [address] [place], [address] Platelet mean volume (Bld) [Entitic vol] 9.5 fL Normal 6.2-12.0 [facility] Comment on above: Performed By: #### L 3300.0960, L501.9520, L506.1001, L100.0100, L500.4050, L509.1000 ####[facility] [address] [place], [address] Platelets (Bld) [#/Vol] 275 10*3/uL Normal 150-450 [facility] Comment on above: Performed By: #### L 3300.0960, L501.9520, L506.1001, L100.0100, L500.4050, L509.1000 ####[facility] [address] [place], [address] RBC (Bld) [#/Vol] 4.42 10*6/uL Normal 4.2-5.4 [facility] Comment on above: Performed By: #### L 3300.0960, L501.9520, L506.1001, L100.0100, L500.4050, L509.1000 ####[facility] [address] [place], [address] RDW SD 40.7 fl Normal 35.1-43.9 [facility] Comment on above: Performed By: #### L 3300.0960, L501.9520, L506.1001, L100.0100, L500.4050, L509.1000 ####[facility] [address] [place], [address] WBC (Bld) [#/Vol] 8.0 10*3/uL Normal 4.4-11.0 [facility] Comment on above: Performed By: #### L 3300.0960, L501.9520, L506.1001, L100.0100, L500.4050, L509.1000 ####[facility] [address] [place], [address] CDIFF (PCR)on 09-08-2024 CDIFF Pending 027 027 NAP1-B1 Presumptive Negative *for epidemiolologic???use C. Diff PCR Negative- No toxigenic C. Diff Detected Normal [facility] Comment on above: Performed By: #### M 100.637, M100.6796 ####[facility] [address] [place], [address] Calcium ionizedOrdered By: Keerthi Posadas on 09-08-2024 Calcium ionized 1.25 mmol/L 1.09-1.30 [facility] Clostridium difficile detect ion by polymerase chain reactionOrdered By: Rosaura Crane on 09-08-2024 C. difficile DNA CRISSY+probe Ql (Unsp spec) [facility] Comprehensive Metabolic Prof ilon 09-08-2024 Albumin [Mass/Vol] 3.1 g/dL Low 3.5-5.0 [facility] Comment on above: Performed By: #### L 3300.0960, L501.9520, L506.1001, L100.0100, L500.4050, L509.1000 ####[facility] [address] [place], [address] Albumin/Globulin [Mass ratio] 1.2 {ratio} Normal 0.9-2.4 [facility] Comment on above: Performed By: #### L 3300.0960, L501.9520, L506.1001, L100.0100, L500.4050, L509.1000 ####[facility] [address] [place], [address] ALK PHOS 105 U/L High 35-104 [facility] Comment on above: Performed By: #### L 3300.0960, L501.9520, L506.1001, L100.0100, L500.4050, L509.1000 ####[facility] [address] [place], [address] ALT [Catalytic activity/Vol] 14 U/L Normal <=34 [facility] Comment on above: Performed By: #### L 3300.0960, L501.9520, L506.1001, L100.0100, L500.4050, L509.1000 ####[facility] [address] [place], [address] AST [Catalytic activity/Vol] 23 U/L Normal <=31 [facility] Comment on above: Performed By: #### L 3300.0960, L501.9520, L506.1001, L100.0100, L500.4050, L509.1000 ####[facility] [address] [place], [address] Bilirubin [Mass/Vol] 0.65 mg/dL Normal 0.00-1.30 [facility] Comment on above: Performed By: #### L 3300.0960, L501.9520, L506.1001, L100.0100, L500.4050, L509.1000 ####[facility] [address] [place], [address] BUN/CRE 16.9 RATIO Normal 10-20 [facility] Comment on above: Performed By: #### L 3300.0960, L501.9520, L506.1001, L100.0100, L500.4050, L509.1000 ####[facility] [address] [place], [address] Calcium [Mass/Vol] 8.8 mg/dL Normal 7.6-11.0 [facility] Comment on above: Performed By: #### L 3300.0960, L501.9520, L506.1001, L100.0100, L500.4050, L509.1000 ####[facility] [address] [place], [address] Chloride [Moles/Vol] 105 mmol/L Normal 98-108 [facility] Comment on above: Performed By: #### L 3300.0960, L501.9520, L506.1001, L100.0100, L500.4050, L509.1000 ####[facility] [address] [place], [address] CO2 [Moles/Vol] 20.3 mmol/L Low 21.0-32.0 [facility] Comment on above: Performed By: #### L 3300.0960, L501.9520, L506.1001, L100.0100, L500.4050, L509.1000 ####[facility] [address] [place], [address] Creatinine [Mass/Vol] 0.88 mg/dL Normal 0.70-1.20 [facility] Comment on above: Performed By: #### L 3300.0960, L501.9520, L506.1001, L100.0100, L500.4050, L509.1000 ####[facility] [address] [place], [address] ECRCL 78.43 ml/min Normal 50-250 [facility] Comment on above: Performed By: #### L 3300.0960, L501.9520, L506.1001, L100.0100, L500.4050, L509.1000 ####[facility] [address] [place], [address] GAP 11 Normal 5-15 [facility] Comment on above: Performed By: #### L 3300.0960, L501.9520, L506.1001, L100.0100, L500.4050, L509.1000 ####[facility] [address] [place], [address] GFR/1.73 sq M.predicted among non-blacks MDRD (S/P/Bld) [Vol rate/Area] 78 mL/min/{1.73_m2} Normal >60 [facility] Comment on above: Result Comment: mL/m in/1.73m2 CKD-EPI Creatinine Equation (2020) Performed By: #### L 3300.0960, L501.9520, L506.1001, L100.0100, L500.4050, L509.1000 ####[facility] [address] [place], [address] Globulin (S) [Mass/Vol] 2.7 g/dL Normal 2.2-4.2 [facility] Comment on above: Performed By: #### L 3300.0960, L501.9520, L506.1001, L100.0100, L500.4050, L509.1000 ####[facility] [address] [place], [address] Glucose [Mass/Vol] 203 mg/dL High 70-99 [facility] Comment on above: Performed By: #### L 3300.0960, L501.9520, L506.1001, L100.0100, L500.4050, L509.1000 ####[facility] [address] [place], [address] Potassium [Moles/Vol] 3.1 mmol/L Low 3.3-5.1 [facility] Comment on above: Performed By: #### L 3300.0960, L501.9520, L506.1001, L100.0100, L500.4050, L509.1000 ####[facility] [address] [place], [address] Sodium [Moles/Vol] 136 mmol/L Normal 133-145 [facility] Comment on above: Performed By: #### L 3300.0960, L501.9520, L506.1001, L100.0100, L500.4050, L509.1000 ####[facility] [address] [place], [address] T PROT 5.9 g/dL Normal 5.9-8.4 [facility] Comment on above: Performed By: #### L 3300.0960, L501.9520, L506.1001, L100.0100, L500.4050, L509.1000 ####[facility] [address] [place], [address] Urea nitrogen [Mass/Vol] 15 mg/dL Normal 4-19 [facility] Comment on above: Performed By: #### L 3300.0960, L501.9520, L506.1001, L100.0100, L500.4050, L509.1000 ####[facility] [address] [place], [address] ENTERIC PATHOGEN PANEL STOOL on 09-08-2024 EP PANEL CAMPYLOBACTER Not Detected Norovirus Not Detected Rotavirus Not Detected Salmonella Not Detected Shiga Toxin Not Detected Shigella sp. Not Detected VIBRIO Not Detected Yersinia Not Detected Normal [facility] Comment on above: Performed By: #### M 100.637, M100.6796 ####[facility] [address] [place], [address] Electrocardiogram reportOrde red By: Alli Brito on 09-08-2024 EKG study [facility] Work Phone: [phone] 09-08-2024 Ionized Calcium 1.08 mmol/L Low 1.09-1.30 [facility] Comment on above: Performed By: #### L 501.2276 ####[facility] [address] [place], [address] Ionized Calcium 1.25 mmol/L Normal 1.09-1.30 [facility] Comment on above: Performed By: #### L 501.2276 ####[facility] [address] [place], [address] L509.7001on 09-08-2024 Procalcitonin 0.14 ng/mL High <=0.10 [facility] Comment on above: Result Comment: Inte rpretation:<0.10-0.25 ng/mL: Antibiotic therapy discouraged. Bacterialinfection unlikely.0.25-0.50 ng/mL: Antibiotic therapy encouraged. Bacterialinfection possible.>0.50 ng/mL: Antibiotic therapy strongly encouraged.Suggestive of presence of bacterial infection.PCT should always be interpreted in the clinical context ofthe patient. Therefore, clinicians should use the PCTresults in conjunction with other laboratory findings andclinical signs of the patient. Performed By: #### L 509.7001 ####[facility] [address] [place], [place], [address] No Panel InformationOrdered By: Rosaura Rosa Maria on 09-08-2024 23 U/L <32 [facility] PTH intactOrdered By: Rosa Maria on 09-08-2024 PTH intact 28 pg/mL [facility] PTHINon 09-08-2024 PTH 28 pg/mL Normal [facility] Comment on above: Performed By: #### L 3300.0960, L501.9520, L506.1001, L100.0100, L500.4050, L509.1000 ####[facility] [address] [place], [place], [address] Serum globulin measurementOr dered By: Rosaura Crane on 09-08-2024 Globulin (S) [Mass/Vol] 2.7 g/dL 2.2-4.2 [facility] Serum globulin measurement 2.7 g/dL 2.2-4.2 [facility] Serum or plasma alanine hamilton otransferase (ALT) measurementOrdered By: Rosaura Crane on 09-08-2024 ALT [Catalytic activity/Vol] 14 U/L <35 [facility] Serum or plasma albumin xiomara urement (mass/volume)Ordered By: Rosaura Crane on 09-08-2024 Albumin [Mass/Vol] 3.1 g/dL Low 3.5-5.0 [facility] Serum or plasma albumin/glob ulin mass ratioOrdered By: Rosaura Crane on 09-08-2024 Albumin/Globulin [Mass ratio] 1.2 {ratio} 0.9-2.4 [facility] Serum or plasma alkaline sabiha sphatase measurementOrdered By: Rosaura Crane on 09-08-2024 ALP [Catalytic activity/Vol] 105 U/L High 35-104 [facility] Serum or plasma calcitriol m easurement (mass/volume)Ordered By: Rosaura Crane on 09-08-2024 1,25-dihydroxyvitamin D3 [Mass/Vol] 29.9 pg/mL 24.8-81.5 [facility] TSH DL <= 0.005 mIU/L QnOrde red By: Rosaura Crane on 09-08-2024 TSH Qn 2.460 uIU/mL 0.300-4.20 0 [facility] Serum or plasma thyroid stimulating hormone (TSH) measurement by high sensitivity met 2.460 uIU/mL 0.300-4.20 0 [facility] Thyroid Stim Hormone (TSH)on 09-08-2024 TSH 2.460 uIU/mL Normal 0.300-4.20 0 [facility] Comment on above: Performed By: #### L 3300.0960, L501.9520, L506.1001, L100.0100, L500.4050, L509.1000 ####[facility] [address] [place], [place], [id number] Total proteinOrdered By: Castro Crane on 09-08-2024 Protein [Mass/Vol] 5.9 g/dL 5.9-8.4 [facility] Total protein 5.9 g/dL 5.9-8.4 [facility] Vitamin D, 25-hydroxyOrdered By: Rosaura Crane on 09-08-2024 Vitamin D, 25-hydroxy 14.3 ng/mL Low 30-100 [facility] Vitamin D,25 Hydroxyon 09-08 Vitamin D 25-OH 14.3 ng/mL Low 30-100 [facility] Comment on above: Result Comment: Charissa min D StatusDeficiency: <20 ng/mL (50nmol/L)Insufficiency: 20-30 ng/mL (50-75 nmol/L)Sufficiency: 30-100 ng/mL (75-250 nmol/L)Toxicity: >100 ng/mL (>250 nmol/L) Performed By: #### L 3300.0960, L501.9520, L506.1001, L100.0100, L500.4050, L509.1000 ####[facility] [address] [place], [address] 12 Lead EKGon 09-07-2024 12 Lead EKG Normal [facility] ALP [Catalytic activity/Vol] Ordered By: Davis Ibarra on 09-07-2024 Serum or plasma alkaline phosphatase measurement 85 U/L 35-104 [facility] ALT [Catalytic activity/Vol] Ordered By: Davis Ibarra on 09-07-2024 Serum or plasma alanine aminotransferase (ALT) measurement 11 U/L <35 [facility] Abdomen/Pelvis W IV Cont ONL Yon 09-07-2024 Abdomen/Pelvis W IV Cont ONLY Normal [facility] Absolute neutrophil countOrd ered By: Davis Ibarra on 09-07-2024 Absolute neutrophil count 6.6 X10^3/uL 2.0-7.7 [facility] Albumin [Mass/Vol]Ordered By : Davis Ibarra on 09-07-2024 Serum or plasma albumin measurement (mass/volume) 2.6 g/dL Low 3.5-5.0 [facility] Albumin/Globulin [Mass ratio ]Ordered By: Davis Ibarra on 09-07-2024 Serum or plasma albumin/globulin mass ratio 1.3 RATIO 0.9-2.4 [facility] Anion gap [Moles/Vol]Ordered By: Davis Ibarra on 09-07-2024 Anion gap in Serum or Plasma 9 5-15 [facility] BUN/creatinine ratioOrdered By: Davis Ibarra on 09-07-2024 BUN/creatinine ratio 18.5 RATIO 10-20 [facility] Basophil percentageOrdered B y: Davis Ibarra on 09-07-2024 Basophil percentage 0.5 % 0-1 [facility] Bilirubin, totalOrdered By: Davis Ibarra on 09-07-2024 Bilirubin, total 0.40 mg/dL 0.00-1.30 [facility] CBC W/Diff, Automatedon Absolute Lymph 1.22 X10 3/uL Normal 0.83-4.51 [facility] Comment on above: Order Comment: RED W. PREVIOUS SPECIMEN REJECTED DUE TOPOSSIBLE CONTAMINATION. 09/07/241742 Eileen Mauricio. Performed By: #### L 501.2450, L100.0100, L500.4050 ####[facility] [address] [place], [address] Absolute Neut 6.6 X10 3/uL Normal 2.0-7.7 [facility] Comment on above: Order Comment: RED W. PREVIOUS SPECIMEN REJECTED DUE TOPOSSIBLE CONTAMINATION. 09/07/241742 Eileen Mauricio. Performed By: #### L 501.2450, L100.0100, L500.4050 ####[facility] [address] [place], [address] Basophils/100 WBC (Bld) 0.5 % Normal 0-1 [facility] Comment on above: Order Comment: RED W. PREVIOUS SPECIMEN REJECTED DUE TOPOSSIBLE CONTAMINATION. 09/07/241742 Eileen Mauricio. Performed By: #### L 501.2450, L100.0100, L500.4050 ####[facility] [address] [place], [address] Eosinophils/100 WBC (Bld) 1.7 % Normal 0-5 [facility] Comment on above: Order Comment: REDRA W. PREVIOUS SPECIMEN REJECTED DUE TOPOSSIBLE CONTAMINATION. 09/07/241742 Eileen Mauricio. Performed By: #### L 501.2450, L100.0100, L500.4050 ####[facility] [address] [place], [address] Erythrocyte distribution width (RBC) [Ratio] 13.3 % Normal 11.6-14.6 [facility] Comment on above: Order Comment: REDRA W. PREVIOUS SPECIMEN REJECTED DUE TOPOSSIBLE CONTAMINATION. 09/07/241742 Eileen Mauricio. Performed By: #### L 501.2450, L100.0100, L500.4050 ####[facility] [address] [place], [address] Hematocrit (Bld) [Volume fraction] 31.8 % Low 37-47 [facility] Comment on above: Order Comment: REDRA W. PREVIOUS SPECIMEN REJECTED DUE TOPOSSIBLE CONTAMINATION. 09/07/241742 Eileen Amuricio. Performed By: #### L 501.2450, L100.0100, L500.4050 ####[facility] [address] [place], [address] Hemoglobin (Bld) [Mass/Vol] 10.8 g/dL Low 12.0-15.0 [facility] Comment on above: Order Comment: REDRA W. PREVIOUS SPECIMEN REJECTED DUE TOPOSSIBLE CONTAMINATION. 09/07/241742 Eileen Mauricio. Performed By: #### L 501.2450, L100.0100, L500.4050 ####[facility] [address] [place], [address] IG% 0.500 Normal 0.0-0.9 [facility] Comment on above: Order Comment: REDRA W. PREVIOUS SPECIMEN REJECTED DUE TOPOSSIBLE CONTAMINATION. 09/07/241742 Eileen Mauricio. Result Comment: IG% - Immature Granulocytes (promyelocytes, myelocytes andmetamyelocytes) > 1% indicates that a LEFT SHIFT is Present. Performed By: #### L 501.2450, L100.0100, L500.4050 ####[facility] [address] [place], [address] Lymphocytes/100 WBC (Bld) 14.5 % Low 19-41 [facility] Comment on above: Order Comment: REDRA W. PREVIOUS SPECIMEN REJECTED DUE TOPOSSIBLE CONTAMINATION. 09/07/241742 Eileen Mauricio. Performed By: #### L 501.2450, L100.0100, L500.4050 ####[facility] [address] [place], [address] MCH (RBC) [Entitic mass] 28.3 pg Normal 27.0-32.0 [facility] Comment on above: Order Comment: REDRA W. PREVIOUS SPECIMEN REJECTED DUE TOPOSSIBLE CONTAMINATION. 09/07/241742 Eileen Mauricio. Performed By: #### L 501.2450, L100.0100, L500.4050 ####[facility] [address] [place], [address] MCHC (RBC) [Mass/Vol] 34.0 g/dL Normal 32-36 [facility] Comment on above: Order Comment: REDRA W. PREVIOUS SPECIMEN REJECTED DUE TOPOSSIBLE CONTAMINATION. 09/07/241742 Eileen Mauricio. Performed By: #### L 501.2450, L100.0100, L500.4050 ####[facility] [address] [place], [address] MCV (RBC) [Entitic vol] 83.2 fL Normal 81-99 [facility] Comment on above: Order Comment: REDRA W. PREVIOUS SPECIMEN REJECTED DUE TOPOSSIBLE CONTAMINATION. 09/07/241742 Eileen Mauricio. Performed By: #### L 501.2450, L100.0100, L500.4050 ####[facility] [address] [place], [address] Monocytes/100 WBC (Bld) 5.0 % Normal 0-10 [facility] Comment on above: Order Comment: REDRA W. PREVIOUS SPECIMEN REJECTED DUE TOPOSSIBLE CONTAMINATION. 09/07/241742 Eileen Mauricio. Performed By: #### L 501.2450, L100.0100, L500.4050 ####[facility] [address] [place], [address] Neutrophils/100 WBC (Bld) 77.8 % High 47-70 [facility] Comment on above: Order Comment: REDRA W. PREVIOUS SPECIMEN REJECTED DUE TOPOSSIBLE CONTAMINATION. 09/07/241742 Eileen Mauricio. Performed By: #### L 501.2450, L100.0100, L500.4050 ####[facility] [address] [place], [address] Nucleated RBC (Bld) [#/Vol] 0 10*3/uL Normal 0-5 [facility] Comment on above: Order Comment: REDRA W. PREVIOUS SPECIMEN REJECTED DUE TOPOSSIBLE CONTAMINATION. 09/07/241742 Eileen Mauricio. Performed By: #### L 501.2450, L100.0100, L500.4050 ####[facility] [address] [place], [address] Platelet mean volume (Bld) [Entitic vol] 9.3 fL Normal 6.2-12.0 [facility] Comment on above: Order Comment: REDRA W. PREVIOUS SPECIMEN REJECTED DUE TOPOSSIBLE CONTAMINATION. 09/07/241742 Eileen Mauricio. Performed By: #### L 501.2450, L100.0100, L500.4050 ####[facility] [address] [place], [address] Platelets (Bld) [#/Vol] 235 10*3/uL Normal 150-450 [facility] Comment on above: Order Comment: REDRA W. PREVIOUS SPECIMEN REJECTED DUE TOPOSSIBLE CONTAMINATION. 09/07/241742 Eileen Mauricio. Performed By: #### L 501.2450, L100.0100, L500.4050 ####[facility] [address] [place], [address] RBC (Bld) [#/Vol] 3.82 10*6/uL Low 4.2-5.4 [facility] Comment on above: Order Comment: REDRA W. PREVIOUS SPECIMEN REJECTED DUE TOPOSSIBLE CONTAMINATION. 09/07/241742 Eileen Mauricio. Performed By: #### L 501.2450, L100.0100, L500.4050 ####[facility] [address] [place], [address] RDW SD 40.4 fl Normal 35.1-43.9 [facility] Comment on above: Order Comment: REDRA W. PREVIOUS SPECIMEN REJECTED DUE TOPOSSIBLE CONTAMINATION. 09/07/241742 Eileen Mauricio. Performed By: #### L 501.2450, L100.0100, L500.4050 ####[facility] [address] [place], [address] WBC (Bld) [#/Vol] 8.4 10*3/uL Normal 4.4-11.0 [facility] Comment on above: Order Comment: RED W. PREVIOUS SPECIMEN REJECTED DUE TOPOSSIBLE CONTAMINATION. 09/07/241742 Eileen Mauricio. Performed By: #### L 501.2450, L100.0100, L500.4050 ####[facility] [address] [place], [address] Hemoglobin (Bld) [Mass/Vol] 4.8 g/dL Invalid Interpretation Code 12.0-15.0 [facility] Comment on above: Result Comment: This specimen has been REJECTED due to Laboratory criteria:Contaminated/Leaked.PEPPER has been notified of need of recollection.09/07/241741 Eileen LozanoCRITICAL VALUE CALLED TO César BUTTERFIELDVFHGQROHB15/06/25 1717 Li Coronel.RESULTS READ BACK BY SAME. Performed By: #### L 100.0100, L501.2450, L500.4050 ####[facility] [address] [place], [address] Absolute Lymph 0.64 X10 3/uL Low 0.83-4.51 [facility] Comment on above: Result Comment: This specimen has been REJECTED due to Laboratory criteria:Contaminated/Leaked.EVANGELIST has been notified of need of recollection.09/07/241741 Eileen Mauricio Performed By: #### L 100.0100, L501.2450, L500.4050 ####[facility] [address] [place], [address] Absolute Neut 3.3 X10 3/uL Normal 2.0-7.7 [facility] Comment on above: Result Comment: This specimen has been REJECTED due to Laboratory criteria:Contaminated/Leaked.EVANGELIST has been notified of need of recollection.09/07/241741 Eileen Mauricio Performed By: #### L 100.0100, L501.2450, L500.4050 ####[facility] [address] [place], [address] BASO# 0.00 X10 3/uL Normal [facility] Comment on above: Result Comment: This specimen has been REJECTED due to Laboratory criteria:Contaminated/Leaked.EVANGELIST has been notified of need of recollection.09/07/241741 Eileen Mauricio Performed By: #### L 100.0100, L501.2450, L500.4050 ####[facility] [address] [place], [address] Basophils/100 WBC (Bld) 0.0 % Normal 0-1 [facility] Comment on above: Result Comment: This specimen has been REJECTED due to Laboratory criteria:Contaminated/Leaked.EVANGELIST has been notified of need of recollection.09/07/241741 Eileen Mauricio Performed By: #### L 100.0100, L501.2450, L500.4050 ####[facility] [address] [place], [address] EOS# 0.05 X10 3/uL Normal [facility] Comment on above: Result Comment: This specimen has been REJECTED due to Laboratory criteria:Contaminated/Leaked.EVANGELIST has been notified of need of recollection.09/07/241741 Eileen Mauricio Performed By: #### L 100.0100, L501.2450, L500.4050 ####[facility] [address] [place], [address] Eosinophils/100 WBC (Bld) 1.2 % Normal 0-5 [facility] Comment on above: Result Comment: This specimen has been REJECTED due to Laboratory criteria:Contaminated/Leaked.EVANGELIST has been notified of need of recollection.09/07/241741 Eileen Mauricio Performed By: #### L 100.0100, L501.2450, L500.4050 ####[facility] [address] [place], [address] Erythrocyte distribution width (RBC) [Ratio] 13.4 % Normal 11.6-14.6 [facility] Comment on above: Result Comment: This specimen has been REJECTED due to Laboratory criteria:Contaminated/Leaked.EVANGELIST has been notified of need of recollection.09/07/241741 Eileen Mauricio Performed By: #### L 100.0100, L501.2450, L500.4050 ####[facility] [address] [place], [address] Hematocrit (Bld) [Volume fraction] 14.7 % Low 37-47 [facility] Comment on above: Result Comment: This specimen has been REJECTED due to Laboratory criteria:Contaminated/Leaked.EVANGELIST has been notified of need of recollection.09/07/241741 Eileen Mauricio Performed By: #### L 100.0100, L501.2450, L500.4050 ####[facility] [address] [place], [address] IG# 0.030 X10 3/uL High 0.0-0.0 [facility] Comment on above: Result Comment: This specimen has been REJECTED due to Laboratory criteria:Contaminated/Leaked.EVANGELIST has been notified of need of recollection.09/07/241741 Eileen Mauricio Performed By: #### L 100.0100, L501.2450, L500.4050 ####[facility] [address] [place], [address] IG% 0.700 Normal 0.0-0.9 [facility] Comment on above: Result Comment: This specimen has been REJECTED due to Laboratory criteria:Contaminated/Leaked.EVANGELIST has been notified of need of recollection.09/07/241741 Eileen LozanoIG% - Immature Granulocytes (promyelocytes, myelocytes andmetamyelocytes) > 1% indicates that a LEFT SHIFT is Present. Performed By: #### L 100.0100, L501.2450, L500.4050 ####[facility] [address] [place], [address] LYMPH# 0.64 X10 3/ul Low 0.83-4.51 [facility] Comment on above: Result Comment: This specimen has been REJECTED due to Laboratory criteria:Contaminated/Leaked.EVANGELIST has been notified of need of recollection.09/07/241741 Eileen Mauricio Performed By: #### L 100.0100, L501.2450, L500.4050 ####[facility] [address] [place], [address] Lymphocytes/100 WBC (Bld) 15.2 % Low 19-41 [facility] Comment on above: Result Comment: This specimen has been REJECTED due to Laboratory criteria:Contaminated/Leaked.EVANGELIST has been notified of need of recollection.09/07/241741 Eileen Mauricio Performed By: #### L 100.0100, L501.2450, L500.4050 ####[facility] [address] [place], [address] MCH (RBC) [Entitic mass] 28.4 pg Normal 27.0-32.0 [facility] Comment on above: Result Comment: This specimen has been REJECTED due to Laboratory criteria:Contaminated/Leaked.EVANGELIST has been notified of need of recollection.09/07/241741 Eileen Mauricio Performed By: #### L 100.0100, L501.2450, L500.4050 ####[facility] [address] [place], [address] MCHC (RBC) [Mass/Vol] 32.7 g/dL Normal 32-36 [facility] Comment on above: Result Comment: This specimen has been REJECTED due to Laboratory criteria:Contaminated/Leaked.EVANGELIST has been notified of need of recollection.09/07/241741 Eileen Mauricio Performed By: #### L 100.0100, L501.2450, L500.4050 ####[facility] [address] [place], [address] MCV (RBC) [Entitic vol] 87.0 fL Normal 81-99 [facility] Comment on above: Result Comment: This specimen has been REJECTED due to Laboratory criteria:Contaminated/Leaked.EVANGELIST has been notified of need of recollection.09/07/241741 Eileen Mauricio Performed By: #### L 100.0100, L501.2450, L500.4050 ####[facility] [address] [place], [address] MONO # 0.24 X10 3/uL Normal [facility] Comment on above: Result Comment: This specimen has been REJECTED due to Laboratory criteria:Contaminated/Leaked.EVANGELIST has been notified of need of recollection.09/07/241741 Eileen Mauricio Performed By: #### L 100.0100, L501.2450, L500.4050 ####[facility] [address] [place], [address] Monocytes/100 WBC (Bld) 5.7 % Normal 0-10 [facility] Comment on above: Result Comment: This specimen has been REJECTED due to Laboratory criteria:Contaminated/Leaked.PEPPER has been notified of need of recollection.09/07/241741 Eileen Mauricio Performed By: #### L 100.0100, L501.2450, L500.4050 ####[facility] [address] [place], [address] Neutrophil # 3.26 X10 3/uL Normal 2.7-7.7 [facility] Comment on above: Result Comment: This specimen has been REJECTED due to Laboratory criteria:Contaminated/Leaked.EVANGELIST has been notified of need of recollection.09/07/241741 Eileen Mauricio Performed By: #### L 100.0100, L501.2450, L500.4050 ####[facility] [address] [place], [address] Neutrophils/100 WBC (Bld) 77.2 % High 47-70 [facility] Comment on above: Result Comment: This specimen has been REJECTED due to Laboratory criteria:Contaminated/Leaked.EVANGELIST has been notified of need of recollection.09/07/241741 Eileen Mauricio Performed By: #### L 100.0100, L501.2450, L500.4050 ####[facility] [address] [place], [address] Nucleated RBC (Bld) [#/Vol] 0 10*3/uL Normal 0-5 [facility] Comment on above: Result Comment: This specimen has been REJECTED due to Laboratory criteria:Contaminated/Leaked.EVANGELIST has been notified of need of recollection.09/07/241741 Eileen Mauricio Performed By: #### L 100.0100, L501.2450, L500.4050 ####[facility] [address] [place], [address] Platelet mean volume (Bld) [Entitic vol] 8.8 fL Normal 6.2-12.0 [facility] Comment on above: Result Comment: This specimen has been REJECTED due to Laboratory criteria:Contaminated/Leaked.EVANGELIST has been notified of need of recollection.09/07/241741 Eileen Mauricio Performed By: #### L 100.0100, L501.2450, L500.4050 ####[facility] [address] [place], [address] Platelets (Bld) [#/Vol] 102 10*3/uL Low 150-450 [facility] Comment on above: Result Comment: This specimen has been REJECTED due to Laboratory criteria:Contaminated/Leaked.EVANGELIST has been notified of need of recollection.09/07/241741 Eileen Mauricio Performed By: #### L 100.0100, L501.2450, L500.4050 ####[facility] [address] [place], [address] POSITIVE COUNT YES Abnormal [facility] Comment on above: Result Comment: This specimen has been REJECTED due to Laboratory criteria:Contaminated/Leaked.EVANGELIST has been notified of need of recollection.09/07/241741 Eileen Mauricio Performed By: #### L 100.0100, L501.2450, L500.4050 ####[facility] [address] [place], [address] RBC (Bld) [#/Vol] 1.69 10*6/uL Low 4.2-5.4 [facility] Comment on above: Result Comment: This specimen has been REJECTED due to Laboratory criteria:Contaminated/Leaked.EVANGELIST has been notified of need of recollection.09/07/241741 Eileen Mauricio Performed By: #### L 100.0100, L501.2450, L500.4050 ####[facility] [address] [place], [address] RDW SD 42.5 fl Normal 35.1-43.9 [facility] Comment on above: Result Comment: This specimen has been REJECTED due to Laboratory criteria:Contaminated/Leaked.EVANGELIST has been notified of need of recollection.09/07/241741 Eileen Mauricio Performed By: #### L 100.0100, L501.2450, L500.4050 ####[facility] [address] [place], [address] WBC (Bld) [#/Vol] 4.2 10*3/uL Low 4.4-11.0 [facility] Comment on above: Result Comment: This specimen has been REJECTED due to Laboratory criteria:Contaminated/Leaked.EVANGELIST has been notified of need of recollection.09/07/241741 Eileen Mauricio Performed By: #### L 100.0100, L501.2450, L500.4050 ####[facility] [address] [place], [address] Calcium [Mass/Vol]Ordered By : Davis Ibarra on 09-07-2024 Serum or plasma calcium measurement (mass/volume) 6.5 mg/dL Low 7.6-11.0 [facility] Carbon dioxide, total [Moles /volume] in Central venous bloodOrdered By: Davis Ibarra on 09-07-2024 Carbon dioxide, total [Moles/volume] in Central venous blood 18.5 mmol/L Low 21.0-32.0 [facility] Chloride assayOrdered By: Matt Ibarra on 09-07-2024 Chloride assay 108 mmol/L 98-108 [facility] Comprehensive Metabolic Prof ilon 09-07-2024 Potassium [Moles/Vol] 2.5 mmol/L Invalid Interpretation Code 3.3-5.1 [facility] Comment on above: Order Comment: [...] Performed By: #### L 501.2450, L100.0100, L500.4050 ####[facility] [address] [place], [address] ALB Normal 3.5-5.0 [facility] Comment on above: Result Comment: This specimen has been REJECTED due to Laboratory criteria:Contaminated/Leaked.EVANGELIST has been notified of need of recollection.09/07/241741 Eileen Mauricio Performed By: #### L 100.0100, L501.2450, L500.4050 ####[facility] [address] [place], [address] ALK PHOS Normal 35-104 [facility] Comment on above: Result Comment: This specimen has been REJECTED due to Laboratory criteria:Contaminated/Leaked.EVANGELIST has been notified of need of recollection.09/07/241741 Eileen Mauricio Performed By: #### L 100.0100, L501.2450, L500.4050 ####[facility] [address] [place], [address] ALT Normal <=34 [facility] Comment on above: Result Comment: This specimen has been REJECTED due to Laboratory criteria:Contaminated/Leaked.EVANGELIST has been notified of need of recollection.09/07/241741 Eileen Mauricoi Performed By: #### L 100.0100, L501.2450, L500.4050 ####[facility] [address] [place], [address] AST Normal <=31 [facility] Comment on above: Result Comment: This specimen has been REJECTED due to Laboratory criteria:Contaminated/Leaked.EVANGELIST has been notified of need of recollection.09/07/241741 Eileen Mauricio Performed By: #### L 100.0100, L501.2450, L500.4050 ####[facility] [address] [place], [address] BUN Normal 4-19 [facility] Comment on above: Result Comment: This specimen has been REJECTED due to Laboratory criteria:Contaminated/Leaked.EVANGELIST has been notified of need of recollection.09/07/241741 Eileen Mauricio Performed By: #### L 100.0100, L501.2450, L500.4050 ####[facility] [address] [place], [address] BUN/CRE Normal 10-20 [facility] Comment on above: Result Comment: This specimen has been REJECTED due to Laboratory criteria:Contaminated/Leaked.EVANGELIST has been notified of need of recollection.09/07/241741 Eileen Mauricio Performed By: #### L 100.0100, L501.2450, L500.4050 ####[facility] [address] [place], [address] Calcium Normal 7.6-11.0 [facility] Comment on above: Result Comment: This specimen has been REJECTED due to Laboratory criteria:Contaminated/Leaked.EVANGELIST has been notified of need of recollection.09/07/241741 Eileen Mauricio Performed By: #### L 100.0100, L501.2450, L500.4050 ####[facility] [address] [place], [address] CL Normal 98-108 [facility] Comment on above: Result Comment: This specimen has been REJECTED due to Laboratory criteria:Contaminated/Leaked.EVANGELIST has been notified of need of recollection.09/07/241741 Eileen Mauricio Performed By: #### L 100.0100, L501.2450, L500.4050 ####[facility] [address] [place], [address] CO2 Normal 21.0-32.0 [facility] Comment on above: Result Comment: This specimen has been REJECTED due to Laboratory criteria:Contaminated/Leaked.EVANGELIST has been notified of need of recollection.09/07/241741 Eileen Mauricio Performed By: #### L 100.0100, L501.2450, L500.4050 ####[facility] [address] [place], [address] CREAT,SERUM Normal 0.70-1.20 [facility] Comment on above: Result Comment: This specimen has been REJECTED due to Laboratory criteria:Contaminated/Leaked.EVANGELIST has been notified of need of recollection.09/07/241741 Eileen Mauricio Performed By: #### L 100.0100, L501.2450, L500.4050 ####[facility] [address] [place], [address] eGFR Normal >60 [facility] Comment on above: Result Comment: This specimen has been REJECTED due to Laboratory criteria:Contaminated/Leaked.EVANGELIST has been notified of need of recollection.09/07/241741 Eileen Mauricio Performed By: #### L 100.0100, L501.2450, L500.4050 ####[facility] [address] [place], [address] GAP Normal 5-15 [facility] Comment on above: Result Comment: This specimen has been REJECTED due to Laboratory criteria:Contaminated/Leaked.EVANGELIST has been notified of need of recollection.09/07/241741 Eileen Mauricio Performed By: #### L 100.0100, L501.2450, L500.4050 ####[facility] [address] [place], [address] GLU Normal 70-99 [facility] Comment on above: Result Comment: This specimen has been REJECTED due to Laboratory criteria:Contaminated/Leaked.EVANGELIST has been notified of need of recollection.09/07/241741 Eileen Mauricio Performed By: #### L 100.0100, L501.2450, L500.4050 ####[facility] [address] [place], [address] Potassium Normal 3.3-5.1 [facility] Comment on above: Result Comment: This specimen has been REJECTED due to Laboratory criteria:Contaminated/Leaked.EVANGELIST has been notified of need of recollection.09/07/241741 Eileen Mauricio Performed By: #### L 100.0100, L501.2450, L500.4050 ####[facility] [address] [place], [address] T BILI Normal 0.00-1.30 [facility] Comment on above: Result Comment: This specimen has been REJECTED due to Laboratory criteria:Contaminated/Leaked.EVANGELIST has been notified of need of recollection.09/07/241741 Eileen Mauricio Performed By: #### L 100.0100, L501.2450, L500.4050 ####[facility] [address] [place], [address] T PROT Normal 5.9-8.4 [facility] Comment on above: Result Comment: This specimen has been REJECTED due to Laboratory criteria:Contaminated/Leaked.EVANGELIST has been notified of need of recollection.09/07/241741 Eileen Mauricio Performed By: #### L 100.0100, L501.2450, L500.4050 ####[facility] [address] [place], [address] Comprehensive Metabolic Profil Normal 133-145 [facility] Comment on above: Result Comment: This specimen has been REJECTED due to Laboratory criteria:Contaminated/Leaked.EVANGELIST has been notified of need of recollection.09/07/241741 Eileen Mauricio Performed By: #### L 100.0100, L501.2450, L500.4050 ####[facility] [address] [place], [address] Creatinine [Mass/Vol]Ordered By: Davis Ibarra on 09-07-2024 Serum creatinine measurement (mass/volume) 0.92 mg/dL 0.70-1.20 [facility] Emergency Department Summary on 09-07-2024 Emergency Department Summary Normal [facility] Eosinophil percentageOrdered By: Davis Ibarra on 09-07-2024 Eosinophil percentage 1.7 % 0-5 [facility] Erythrocyte distribution wid th (RBC) [Ratio]Ordered By: Davis Ibarra on 09-07-2024 Erythrocyte distribution width ratio 13.3 % 11.6-14.6 [facility] Erythrocyte distribution width standard deviation 40.4 fl 35.1-43.9 [facility] Estimation of creatinine sylvain aranceOrdered By: Davis Ibarra on 09-07-2024 Estimation of creatinine clearance 76.05 ml/min 50-250 [facility] GFR/1.73 sq M.predicted estephanie g non-blacks MDRD (S/P/Bld) [Vol rate/Area]Ordered By: Davis Ibarra on 09-07-2024 Glomerular filtration rate (GFR) estimation/1.73 sq m using serum, plasma, or whole b 74 >60 [facility] Glucose [Mass/Vol]Ordered By : Davis Ibarra on 09-07-2024 Serum glucose measurement (mass/volume) 283 mg/dL High 70-99 [facility] H AND P Exam - Hospitaliston 09-07-2024 H&P Exam - Hospitalist Normal [facility] Hematocrit Auto (Bld) [Volum e fraction]Ordered By: Davis Ibarra on 09-07-2024 Automated blood hematocrit (percentage) 31.8 % Low 37-47 [facility] Hemoglobin measurementOrdere d By: Davis Ibarra on 09-07-2024 Hemoglobin measurement 10.8 g/dL Low 12.0-15.0 [facility] Immature granulocytes/100 WB C Auto (Bld)Ordered By: Davis Ibarra on 09-07-2024 Automated immature granulocyte percentage 0.500 % 0.0-0.9 [facility] Lipaseon 09-07-2024 Lipase [Catalytic activity/Vol] 28 U/L Normal 13-75 [facility] Comment on above: Order Comment: FLORIDALMA W. PREVIOUS SPECIMEN REJECTED DUE TOPOSSIBLE CONTAMINATION. 09/07/241742 Eileen Mauricio. Result Comment: Gege edgar note:LIPASE revised reference range effective 22.New Lipase methodology. Expected to produce lower valuesthan the previous assay method.NEW Reference Range: 13 - 75 U/L Performed By: #### L 501.2450, L100.0100, L500.4050 ####[facility] [address] [place], [place], [id number] Lipase [Catalytic activity/Vol] 12 U/L Low -75 [facility] Comment on above: Order Comment: [...] Performed By: #### L 100.0100, L501.2450, L500.4050 ####[facility] [address] [place], [address] Lipase measurementOrdered By : Davis Ibarra on 09-07-2024 Lipase measurement 28 U/L 13-75 [facility] Lymphocytes Auto (Unsp spec) [#/Vol]Ordered By: Davis Ibarra on 09-07-2024 Absolute lymphocyte count 1.22 X10^3/uL 0.83-4.51 [facility] Lymphocytes/100 WBC Auto (Un sp spec)Ordered By: Davis Ibarra on 09-07-2024 Automated lymphocyte count as percentage of total leukocytes 14.5 % Low 19-41 [facility] MCV (RBC) [Entitic vol]Order ed By: Davis Ibarra on 09-07-2024 MCV (mean corpuscular volume) determination 83.2 fL 81-99 [facility] Magnesiumon 09-07-2024 Magnesium [Mass/Vol] 1.2 mg/dL Low 1.5-2.2 [facility] Comment on above: Performed By: #### L 501.2916 ####[facility] [address] [place], [place], [address] Magnesium (Unsp spec) [Mass/ Vol]Ordered By: Davis Ibarra on 09-07-2024 Magnesium measurement (mass/volume) 1.2 mg/dL Low 1.5-2.2 [facility] Mean corpuscular hemoglobin (MCH) determinationOrdered By: Davis Ibarra on 09-07-2024 Mean corpuscular hemoglobin (MCH) determination 28.3 pg 27.0-32.0 [facility] Mean corpuscular hemoglobin concentration (MCHC) determinationOrdered By: Davis Ibarra on 09-07-2024 Mean corpuscular hemoglobin concentration (MCHC) determination 34.0 g/dL 32-36 [facility] Mean platelet volume determi nationOrdered By: Davis Ibarra on 09-07-2024 Mean platelet volume determination 9.3 fl 6.2-12.0 [facility] Monocyte percentageOrdered B y: Davis Ibarra on 09-07-2024 Monocyte percentage 5.0 % 0-10 [facility] Neutrophil percentageOrdered By: Davis Ibarra on 09-07-2024 Neutrophil percentage 77.8 % High 47-70 [facility] No Panel InformationOrdered By: Davis Ibarra on 09-07-2024 19 U/L <32 [facility] Nucleated red blood cell per centageOrdered By: Davis Ibarra on 09-07-2024 Nucleated red blood cell percentage 0 % 0-5 [facility] Phosphoruson 09-07-2024 Phosphate [Mass/Vol] 2.5 mg/dL Low 2.7-4.5 [facility] Comment on above: Performed By: #### L 501.4404 ####[facility] [address] [place], [place], [id number] Platelet countOrdered By: Matt Ibarra on 09-07-2024 Platelet count 235 K/mm3 150-450 [facility] Potassium (Unsp spec) [Mass/ Vol]Ordered By: Davis Ibarra on 09-07-2024 Potassium measurement (mass/volume) 2.5 mmol/L Low 3.3-5.1 [facility] Procalcitonin IA [Mass/Vol]O rdered By: Rosaura Crane on 09-07-2024 Procalcitonin [Mass/volume] in Serum or Plasma by Immunoassay 0.14 ng/mL High <0.11 [facility] Procalcitonin [Mass/volume] in Serum or Plasma by ImmunoassayOrdered By: Rosaura Crane on 09-07-2024 Procalcitonin IA [Mass/Vol] 0.14 ng/mL High <0.11 [facility] RBC Auto (Bld) [#/Vol]Ordere d By: Davis Ibarra on 09-07-2024 Automated blood erythrocyte count 3.82 M/mm3 Low 4.2-5.4 [facility] Serum globulin measurementOr dered By: Davis Ibarra on 09-07-2024 Serum globulin measurement 2.1 g/dL Low 2.2-4.2 [facility] Sodium levelOrdered By: Bhupendra Ibarra on 09-07-2024 Sodium level 136 mmol/L 133-145 [facility] Total proteinOrdered By: Latoya Ibarra on 09-07-2024 Total protein 4.7 g/dL Low 5.9-8.4 [facility] Type AND Screenon 09-07-2024 Ab SCREEN GEL Negative Normal [facility] Comment on above: Order Comment: A Performed By: #### B TS ####[facility] [address] [place], [place], [id number] Urea nitrogen [Mass/Vol]Orde red By: Davis Ibarra on 09-07-2024 Serum or plasma urea nitrogen measurement (mass/volume) 17 mg/dL 4-19 [facility] Urinalysis, Completeon 09-07 BACTERIA Normal None Seen [facility] Comment on above: Order Comment: UA CO MPLETED ON LEAN CATCH Result Comment: @COM PLETED ON 09/12 Performed By: #### L 400.0001 ####[facility] [address] [place], [address] BILIRUBIN URINE Normal Negative [facility] Comment on above: Order Comment: UA CO MPLETED ON LEAN CATCH Result Comment: @COM PLETED ON 09/12 Performed By: #### L 400.0001 ####[facility] [address] [place], [address] Clarity (U) Normal Clear [facility] Comment on above: Order Comment: UA CO MPLETED ON LEAN CATCH Result Comment: @COM PLETED ON 09/12 Performed By: #### L 400.0001 ####[facility] [address] [place], [address] Color (U) Normal Yellow [facility] Comment on above: Order Comment: UA CO MPLETED ON LEAN CATCH Result Comment: @COM PLETED ON 09/12 Performed By: #### L 400.0001 ####[facility] [address] [place], [address] EPI,SQUAMOUS Normal 5-10 [facility] Comment on above: Order Comment: UA CO MPLETED ON LEAN CATCH Result Comment: @COM PLETED ON 09/12 Performed By: #### L 400.0001 ####[facility] [address] [place], [address] GLUCOSE, UR Normal Normal [facility] Comment on above: Order Comment: UA CO MPLETED ON LEAN CATCH Result Comment: @COM PLETED ON 09/12 Performed By: #### L 400.0001 ####[facility] [address] [place], [address] KETONE UR Normal Negative [facility] Comment on above: Order Comment: UA CO MPLETED ON LEAN CATCH Result Comment: @COM PLETED ON 09/12 Performed By: #### L 400.0001 ####[facility] [address] [place], [address] LEUK ESTERASE Normal Negative [facility] Comment on above: Order Comment: UA CO MPLETED ON LEAN CATCH Result Comment: @COM PLETED ON 09/12 Performed By: #### L 400.0001 ####[facility] [address] [place], [address] Mucus Ql (Urine sed) Normal [facility] Comment on above: Order Comment: UA CO MPLETED ON LEAN CATCH Result Comment: @COM PLETED ON 09/12 Performed By: #### L 400.0001 ####[facility] [address] [place], [address] Nitrite Ql (U) Normal Negative [facility] Comment on above: Order Comment: UA CO MPLETED ON LEAN CATCH Result Comment: @COM PLETED ON 09/12 Performed By: #### L 400.0001 ####[facility] [address] [place], [address] OCCULT BLOOD-UR Normal Negative [facility] Comment on above: Order Comment: UA CO MPLETED ON LEAN CATCH Result Comment: @COM PLETED ON 09/12 Performed By: #### L 400.0001 ####[facility] [address] [place], [address] pH UR Normal 5.0 - 8.0 [facility] Comment on above: Order Comment: UA CO MPLETED ON LEAN CATCH Result Comment: @COM PLETED ON 09/12 Performed By: #### L 400.0001 ####[facility] [address] [place], [address] PROT DIPSTX Normal Negative [facility] Comment on above: Order Comment: UA CO MPLETED ON 4/11CLEAN CATCH Result Comment: @COM PLETED ON 09/12 Performed By: #### L 400.0001 ####[facility] [address] [place], [address] RBC Normal 0-5 [facility] Comment on above: Order Comment: UA CO MPLETED ON LEAN CATCH Result Comment: @COM PLETED ON 09/12 Performed By: #### L 400.0001 ####[facility] [address] [place], [address] SP.GR. DIPSTX Normal 1.002-1.03 0 [facility] Comment on above: Order Comment: UA CO MPLETED ON LEAN CATCH Result Comment: @COM PLETED ON 09/12 Performed By: #### L 400.0001 ####[facility] [address] [place], [address] UR Preservative Normal [facility] Comment on above: Order Comment: UA CO MPLETED ON LEAN CATCH Result Comment: @COM PLETED ON 09/12 Performed By: #### L 400.0001 ####[facility] [address] [place], [address] UROBILI Normal Normal [facility] Comment on above: Order Comment: UA CO MPLETED ON LEAN CATCH Result Comment: @COM PLETED ON 09/12 Performed By: #### L 400.0001 ####[facility] [address] [place], [address] WBC Normal 0-5 [facility] Comment on above: Order Comment: UA CO MPLETED ON LEAN CATCH Result Comment: @COM PLETED ON 09/12 Performed By: #### L 400.0001 ####[facility] [address] [place], [address] White blood cell (WBC) count Ordered By: Davis Ibarra on 09-07-2024 White blood cell (WBC) count 8.4 K/mm3 4.4-11.0 [facility] ALP [Catalytic activity/Vol] Ordered By: Zack Card on 09-05-2024 Serum or plasma alkaline phosphatase measurement 141 U/L High 35-104 [facility] ALT [Catalytic activity/Vol] Ordered By: Zack Card on 09-05-2024 Serum or plasma alanine aminotransferase (ALT) measurement 22 U/L <35 [facility] Absolute lymphocyte countOrd ered By: Zack Card on 09-05-2024 Lymphocytes Auto (Unsp spec) [#/Vol] 1.39 10*3/uL 0.83-4.51 [facility] Absolute neutrophil countOrd ered By: Zack Card on 09-05-2024 Absolute neutrophil count 7.9 X10^3/uL High 2.0-7.7 [facility] Albumin [Mass/Vol]Ordered By : Zack Card on 09-05-2024 Serum or plasma albumin measurement (mass/volume) 4.2 g/dL 3.5-5.0 [facility] Albumin/Globulin [Mass ratio ]Ordered By: Zack Card on 09-05-2024 Serum or plasma albumin/globulin mass ratio 1.0 RATIO 0.9-2.4 [facility] Anion gap [Moles/Vol]Ordered By: Zack Card on 09-05-2024 Anion gap in Serum or Plasma 15 5-15 [facility] Anion gap in Serum or Plasma Ordered By: Zack Card on 09-05-2024 Anion gap [Moles/Vol] 15 mmol/L 5-15 [facility] Automated lymphocyte count a s percentage of total leukocytesOrdered By: Zack Card on 09-05-2024 Lymphocytes/100 WBC Auto (Unsp spec) 14.1 % Low 19-41 [facility] BUN/creatinine ratioOrdered By: Zack Card on 09-05-2024 Urea nitrogen/Creatinine [Mass ratio] 16.4 mg/mg 10-20 [facility] BUN/creatinine ratio 16.4 RATIO 10-20 [facility] Basophil percentageOrdered B y: Zack Card on 09-05-2024 Basophils/100 WBC (Bld) 0.4 % 0-1 [facility] 0.4 % 0-1 [facility] Bilirubin, totalOrdered By: Zack Card on 09-05-2024 Bilirubin [Mass/Vol] 0.72 mg/dL 0.00-1.30 [facility] Bilirubin, total 0.72 mg/dL 0.00-1.30 [facility] CBC W/Diff, Automatedon Absolute Lymph 1.39 X10 3/uL Normal 0.83-4.51 [facility] Comment on above: Performed By: #### L 500.4050, L100.0100, L501.2450 ####[facility] [address] [place], [address] Absolute Neut 7.9 X10 3/uL High 2.0-7.7 [facility] Comment on above: Performed By: #### L 500.4050, L100.0100, L501.2450 ####[facility] [address] [place], [address] Basophils/100 WBC (Bld) 0.4 % Normal 0-1 [facility] Comment on above: Performed By: #### L 500.4050, L100.0100, L501.2450 ####[facility] [address] [place], [address] Eosinophils/100 WBC (Bld) 0.2 % Normal 0-5 [facility] Comment on above: Performed By: #### L 500.4050, L100.0100, L501.2450 ####[facility] [address] [place], [address] Erythrocyte distribution width (RBC) [Ratio] 13.3 % Normal 11.6-14.6 [facility] Comment on above: Performed By: #### L 500.4050, L100.0100, L501.2450 ####[facility] [address] [place], [address] Hematocrit (Bld) [Volume fraction] 44.4 % Normal 37-47 [facility] Comment on above: Performed By: #### L 500.4050, L100.0100, L501.2450 ####[facility] [address] [place], [address] Hemoglobin (Bld) [Mass/Vol] 15.1 g/dL High 12.0-15.0 [facility] Comment on above: Performed By: #### L 500.4050, L100.0100, L501.2450 ####[facility] [address] [place], [address] IG% 0.500 Normal 0.0-0.9 [facility] Comment on above: Result Comment: IG% - Immature Granulocytes (promyelocytes, myelocytes andmetamyelocytes) > 1% indicates that a LEFT SHIFT is Present. Performed By: #### L 500.4050, L100.0100, L501.2450 ####[facility] [address] [place], [address] Lymphocytes/100 WBC (Bld) 14.1 % Low 19-41 [facility] Comment on above: Performed By: #### L 500.4050, L100.0100, L501.2450 ####[facility] [address] [place], [address] MCH (RBC) [Entitic mass] 28.1 pg Normal 27.0-32.0 [facility] Comment on above: Performed By: #### L 500.4050, L100.0100, L501.2450 ####[facility] [address] [place], [address] MCHC (RBC) [Mass/Vol] 34.0 g/dL Normal 32-36 [facility] Comment on above: Performed By: #### L 500.4050, L100.0100, L501.2450 ####[facility] [address] [place], [address] MCV (RBC) [Entitic vol] 82.5 fL Normal 81-99 [facility] Comment on above: Performed By: #### L 500.4050, L100.0100, L501.2450 ####[facility] [address] [place], [address] Monocytes/100 WBC (Bld) 5.1 % Normal 0-10 [facility] Comment on above: Performed By: #### L 500.4050, L100.0100, L501.2450 ####[facility] [address] [place], [address] Neutrophils/100 WBC (Bld) 79.7 % High 47-70 [facility] Comment on above: Performed By: #### L 500.4050, L100.0100, L501.2450 ####[facility] [address] [place], [address] Nucleated RBC (Bld) [#/Vol] 0 10*3/uL Normal 0-5 [facility] Comment on above: Performed By: #### L 500.4050, L100.0100, L501.2450 ####[facility] [address] [place], [address] Platelet mean volume (Bld) [Entitic vol] 8.7 fL Normal 6.2-12.0 [facility] Comment on above: Performed By: #### L 500.4050, L100.0100, L501.2450 ####[facility] [address] [place], [address] Platelets (Bld) [#/Vol] 314 10*3/uL Normal 150-450 [facility] Comment on above: Performed By: #### L 500.4050, L100.0100, L501.2450 ####[facility] [address] [place], [address] RBC (Bld) [#/Vol] 5.38 10*6/uL Normal 4.2-5.4 [facility] Comment on above: Performed By: #### L 500.4050, L100.0100, L501.2450 ####[facility] [address] [place], [address] RDW SD 39.7 fl Normal 35.1-43.9 [facility] Comment on above: Performed By: #### L 500.4050, L100.0100, L501.2450 ####[facility] [address] [place], [address] WBC (Bld) [#/Vol] 9.9 10*3/uL Normal 4.4-11.0 [facility] Comment on above: Performed By: #### L 500.4050, L100.0100, L501.2450 ####[facility] [address] [place], [address] Calcium [Mass/Vol]Ordered By : Zack Card on 09-05-2024 Serum or plasma calcium measurement (mass/volume) 10.0 mg/dL 7.6-11.0 [facility] Carbon dioxide, total [Moles /volume] in Central venous bloodOrdered By: Zack Card on 09-05-2024 CO2 [Moles/Vol] 22.0 mmol/L 21.0-32.0 [facility] Carbon dioxide, total [Moles/volume] in Central venous blood 22.0 mmol/L 21.0-32.0 [facility] Chloride assayOrdered By: Butch Card on 09-05-2024 Chloride [Moles/Vol] 95 mmol/L Low 98-108 [facility] Chloride assay 95 mmol/L Low 98-108 [facility] Comprehensive Metabolic Prof ilon 09-05-2024 Albumin [Mass/Vol] 4.2 g/dL Normal 3.5-5.0 [facility] Comment on above: Performed By: #### L 500.4050, L100.0100, L501.2450 ####[facility] [address] [place], [address] Albumin/Globulin [Mass ratio] 1.0 {ratio} Normal 0.9-2.4 [facility] Comment on above: Performed By: #### L 500.4050, L100.0100, L501.2450 ####[facility] [address] [place], [address] ALK PHOS 141 U/L High 35-104 [facility] Comment on above: Performed By: #### L 500.4050, L100.0100, L501.2450 ####[facility] [address] [place], [address] ALT [Catalytic activity/Vol] 22 U/L Normal <=34 [facility] Comment on above: Performed By: #### L 500.4050, L100.0100, L501.2450 ####[facility] [address] [place], [address] AST [Catalytic activity/Vol] 33 U/L High <=31 [facility] Comment on above: Result Comment: Hemo lysis present, Results??could be affected.?? Performed By: #### L 500.4050, L100.0100, L501.2450 ####[facility] [address] [place], [address] Bilirubin [Mass/Vol] 0.72 mg/dL Normal 0.00-1.30 [facility] Comment on above: Performed By: #### L 500.4050, L100.0100, L501.2450 ####[facility] [address] [place], [address] BUN/CRE 16.4 RATIO Normal 10-20 [facility] Comment on above: Performed By: #### L 500.4050, L100.0100, L501.2450 ####[facility] [address] [place], [address] Calcium [Mass/Vol] 10.0 mg/dL Normal 7.6-11.0 [facility] Comment on above: Performed By: #### L 500.4050, L100.0100, L501.2450 ####[facility] [address] [place], [address] Chloride [Moles/Vol] 95 mmol/L Low 98-108 [facility] Comment on above: Performed By: #### L 500.4050, L100.0100, L501.2450 ####[facility] [address] [place], [address] CO2 [Moles/Vol] 22.0 mmol/L Normal 21.0-32.0 [facility] Comment on above: Performed By: #### L 500.4050, L100.0100, L501.2450 ####[facility] [address] [place], [address] Creatinine [Mass/Vol] 0.84 mg/dL Normal 0.70-1.20 [facility] Comment on above: Performed By: #### L 500.4050, L100.0100, L501.2450 ####[facility] [address] [place], [address] ECRCL 83.78 ml/min Normal 50-250 [facility] Comment on above: Performed By: #### L 500.4050, L100.0100, L501.2450 ####[facility] [address] [place], [address] GAP 15 Normal 5-15 [facility] Comment on above: Performed By: #### L 500.4050, L100.0100, L501.2450 ####[facility] [address] [place], [address] GFR/1.73 sq M.predicted among non-blacks MDRD (S/P/Bld) [Vol rate/Area] 83 mL/min/{1.73_m2} Normal >60 [facility] Comment on above: Result Comment: mL/m in/1.73m2 CKD-EPI Creatinine Equation (2020) Performed By: #### L 500.4050, L100.0100, L501.2450 ####[facility] [address] [place], [address] Globulin (S) [Mass/Vol] 4.0 g/dL Normal 2.2-4.2 [facility] Comment on above: Performed By: #### L 500.4050, L100.0100, L501.2450 ####[facility] [address] [place], [address] Glucose [Mass/Vol] 382 mg/dL High 70-99 [facility] Comment on above: Performed By: #### L 500.4050, L100.0100, L501.2450 ####[facility] [address] [place], [address] Potassium [Moles/Vol] 3.6 mmol/L Normal 3.3-5.1 [facility] Comment on above: Result Comment: Hemo lysis present, Results??could be affected.?? Performed By: #### L 500.4050, L100.0100, L501.2450 ####[facility] [address] [place], [address] Sodium [Moles/Vol] 132 mmol/L Low 133-145 [facility] Comment on above: Performed By: #### L 500.4050, L100.0100, L501.2450 ####[facility] [address] [place], [address] T PROT 8.2 g/dL Normal 5.9-8.4 [facility] Comment on above: Performed By: #### L 500.4050, L100.0100, L501.2450 ####[facility] [address] [place], [address] Urea nitrogen [Mass/Vol] 14 mg/dL Normal 4-19 [facility] Comment on above: Performed By: #### L 500.4050, L100.0100, L501.2450 ####[facility] [address], [address] Creatinine [Mass/Vol]Ordered By: Zack Card on 09-05-2024 Serum creatinine measurement (mass/volume) 0.84 mg/dL 0.70-1.20 [facility] Emergency Department Summary on 09-05-2024 Emergency Department Summary Normal [facility] Eosinophil percentageOrdered By: Zack Card on 09-05-2024 Eosinophils/100 WBC (Bld) 0.2 % 0-5 [facility] Eosinophil percentage 0.2 % 0-5 [facility] [facility] Erythrocyte distribution wid th (RBC) [Ratio]Ordered By: Zack Card on 09-05-2024 Erythrocyte distribution width ratio 13.3 % 11.6-14.6 [facility] Erythrocyte distribution width standard deviation 39.7 fl 35.1-43.9 [facility] Erythrocyte distribution wid th ratioOrdered By: Zack Card on 09-05-2024 Erythrocyte distribution width (RBC) [Ratio] 13.3 % 11.6-14.6 [facility] Erythrocyte distribution wid th standard deviationOrdered By: Zack Card on 09-05-2024 Erythrocyte distribution width (RBC) [Ratio] 39.7 fl 35.1-43.9 [facility] Estimation of creatinine sylvain aranceOrdered By: Zack Card on 09-05-2024 Estimation of creatinine clearance 83.78 ml/min 50-250 [facility] GFR/1.73 sq M.predicted estephanie g non-blacks MDRD (S/P/Bld) [Vol rate/Area]Ordered By: Zack Card on 09-05-2024 Glomerular filtration rate (GFR) estimation/1.73 sq m using serum, plasma, or whole b 83 >60 [facility] Glomerular filtration rate ( GFR) estimation/1.73 sq m using serum, plasma, or whole bOrdered By: Zack Card on 09-05-2024 GFR/1.73 sq M.predicted among non-blacks MDRD (S/P/Bld) [Vol rate/Area] 83 mL/min/{1.73_m2} >60 [facility] Glucose [Mass/Vol]Ordered By : Zack Card on 09-05-2024 Serum glucose measurement (mass/volume) 382 mg/dL High 70-99 [facility] Hematocrit Auto (Bld) [Volum e fraction]Ordered By: Zack Card on 09-05-2024 Hematocrit (Bld) [Volume fraction] 44.4 % 37-47 [facility] Automated blood hematocrit (percentage) 44.4 % 37-47 [facility] Hemoglobin measurementOrdere d By: Zack Card on 09-05-2024 Hemoglobin (Bld) [Mass/Vol] 15.1 g/dL High 12.0-15.0 [facility] Hemoglobin measurement 15.1 g/dL High 12.0-15.0 [facility] Immature granulocytes/100 WB C Auto (Bld)Ordered By: Zack Card on 09-05-2024 Immature granulocytes/100 WBC (Bld) 0.500 % 0.0-0.9 [facility] Automated immature granulocyte percentage 0.500 % 0.0-0.9 [facility] Lipaseon 09-05-2024 Lipase [Catalytic activity/Vol] 33 U/L Normal 13-75 [facility] Comment on above: Result Comment: Gege edgar note:LIPASE revised reference range effective 22.New Lipase methodology. Expected to produce lower valuesthan the previous assay method.NEW Reference Range: 13 - 75 U/L Performed By: #### L 500.4050, L100.0100, L501.2450 ####[facility] [address] [place], [place], [id number] Lipase measurementOrdered By : Zack Card on 09-05-2024 Lipase measurement 33 U/L High <32 [facility] Lymphocytes Auto (Unsp spec) [#/Vol]Ordered By: Zack Card on 09-05-2024 Absolute lymphocyte count 1.39 X10^3/uL 0.83-4.51 [facility] Lymphocytes/100 WBC Auto (Un sp spec)Ordered By: Zack Card on 09-05-2024 Automated lymphocyte count as percentage of total leukocytes 14.1 % Low 19-41 [facility] MCV (RBC) [Entitic vol]Order ed By: Zack Card on 09-05-2024 MCV (mean corpuscular volume) determination 82.5 fL 81-99 [facility] MCV (mean corpuscular volume ) determinationOrdered By: Zack Card on 09-05-2024 MCV (RBC) [Entitic vol] 82.5 fL 81-99 [facility] Mean corpuscular hemoglobin (MCH) determinationOrdered By: Zack Card on 09-05-2024 MCH (RBC) [Entitic mass] 28.1 pg 27.0-32.0 [facility] Mean corpuscular hemoglobin (MCH) determination 28.1 pg 27.0-32.0 [facility] Mean corpuscular hemoglobin concentration (MCHC) determinationOrdered By: Zack Card on 09-05-2024 Mean corpuscular hemoglobin concentration (MCHC) determination 34.0 g/dL 32-36 [facility] Mean platelet volume determi nationOrdered By: Zack Card on 09-05-2024 Mean platelet volume determination 8.7 fl 6.2-12.0 [facility] Monocyte percentageOrdered B y: Zack Card on 09-05-2024 Monocytes/100 WBC (Bld) 5.1 % 0-10 [facility] Monocyte percentage 5.1 % 0-10 [facility] Neutrophil percentageOrdered By: Zack Card on 09-05-2024 Neutrophils/100 WBC (Bld) 79.7 % High 47-70 [facility] Neutrophil percentage 79.7 % High 47-70 [facility] Nucleated red blood cell per centageOrdered By: Zack Card on 09-05-2024 Nucleated red blood cell percentage 0 % 0-5 [facility] Platelet countOrdered By: Butch Cadr on 09-05-2024 Platelets (Bld) [#/Vol] 314 10*3/uL 150-450 [facility] Platelet count 314 K/mm3 150-450 [facility] Potassium (Unsp spec) [Mass/ Vol]Ordered By: Zack Card on 09-05-2024 Potassium measurement (mass/volume) 3.6 mmol/L 3.3-5.1 [facility] Potassium measurement (mass/ volume)Ordered By: Zack Card on 09-05-2024 Potassium (Unsp spec) [Mass/Vol] 3.6 mmol/L 3.3-5.1 [facility] RBC Auto (Bld) [#/Vol]Ordere d By: Zack Card on 09-05-2024 RBC (Bld) [#/Vol] 5.38 10*6/uL 4.2-5.4 [facility] Automated blood erythrocyte count 5.38 M/mm3 4.2-5.4 [facility] Serum creatinine measurement (mass/volume)Ordered By: Zack Card on 09-05-2024 Creatinine [Mass/Vol] 0.84 mg/dL 0.70-1.20 [facility] Serum globulin measurementOr dered By: Zack Card 09-05-2024 Globulin (S) [Mass/Vol] 4.0 g/dL 2.2-4.2 [facility] Serum globulin measurement 4.0 g/dL 2.2-4.2 [facility] Serum glucose measurement (m ass/volume)Ordered By: Zack Card on 09-05-2024 Glucose [Mass/Vol] 382 mg/dL High 70-99 [facility] Serum or plasma alanine hamilton otransferase (ALT) measurementOrdered By: Zack Card 09-05-2024 ALT [Catalytic activity/Vol] 22 U/L <35 [facility] Serum or plasma albumin xiomara urement (mass/volume)Ordered By: Zack Card on 09-05-2024 Albumin [Mass/Vol] 4.2 g/dL 3.5-5.0 [facility] Serum or plasma albumin/glob ulin mass ratioOrdered By: Zack Card 09-05-2024 Albumin/Globulin [Mass ratio] 1.0 {ratio} 0.9-2.4 [facility] Serum or plasma alkaline sabiha sphatase measurementOrdered By: Zack Card 09-05-2024 ALP [Catalytic activity/Vol] 141 U/L High 35-104 [facility] Serum or plasma calcium xiomara urement (mass/volume)Ordered By: Zack Card on 09-05-2024 Calcium [Mass/Vol] 10.0 mg/dL 7.6-11.0 [facility] Serum or plasma urea nitroge n measurement (mass/volume)Ordered By: Zack Card on 09-05-2024 Urea nitrogen [Mass/Vol] 14 mg/dL 09-20 [facility] Sodium levelOrdered By: Zack Card on 09-05-2024 Sodium [Moles/Vol] 132 mmol/L Low 133-145 [facility] Sodium level 132 mmol/L Low 133-145 [facility] Total proteinOrdered By: Sanjay Card on 09-05-2024 Protein [Mass/Vol] 8.2 g/dL 5.9-8.4 [facility] Total protein 8.2 g/dL 5.9-8.4 [facility] Urea nitrogen [Mass/Vol]Orde red By: Zack Card on 09-05-2024 Serum or plasma urea nitrogen measurement (mass/volume) 14 mg/dL 09-20 [facility] White blood cell (WBC) count Ordered By: Zack Card on 09-05-2024 WBC (Bld) [#/Vol] 9.9 10*3/uL 4.4-11.0 [facility] White blood cell (WBC) count 9.9 K/mm3 4.4-11.0 [facility] Basic Metabolic Profile (BMP )on 09-04-2024 BUN Normal - [facility] Comment on above: Result Comment: Canc elled via OM: Order cancelled - Patient discharged Performed By: #### L 500.2500, L100.0100 ####[facility] [address] [place], [address] BUN/CRE Normal 10-20 [facility] Comment on above: Result Comment: Canc elled via OM: Order cancelled - Patient discharged Performed By: #### L 500.2500, L100.0100 ####[facility] [address] [place], [address] Calcium Normal 7.6-11.0 [facility] Comment on above: Result Comment: Canc elled via OM: Order cancelled - Patient discharged Performed By: #### L 500.2500, L100.0100 ####[facility] [address] [place], [address] CL Normal 98-108 [facility] Comment on above: Result Comment: Canc elled via OM: Order cancelled - Patient discharged Performed By: #### L 500.2500, L100.0100 ####[facility] [address] [place], [address] CO2 Normal 21.0-32.0 [facility] Comment on above: Result Comment: Canc elled via OM: Order cancelled - Patient discharged Performed By: #### L 500.2500, L100.0100 ####[facility] [address] [place], [address] CREAT,SERUM Normal 0.70-1.20 [facility] Comment on above: Result Comment: Canc elled via OM: Order cancelled - Patient discharged Performed By: #### L 500.2500, L100.0100 ####[facility] [address] [place], [address] eGFR Normal >60 [facility] Comment on above: Result Comment: Canc elled via OM: Order cancelled - Patient discharged Performed By: #### L 500.2500, L100.0100 ####[facility] [address] [place], [address] GAP Normal 5-15 [facility] Comment on above: Result Comment: Canc elled via OM: Order cancelled - Patient discharged Performed By: #### L 500.2500, L100.0100 ####[facility] [address] [place], [address] GLU Normal 70-99 [facility] Comment on above: Result Comment: Canc elled via OM: Order cancelled - Patient discharged Performed By: #### L 500.2500, L100.0100 ####[facility] [address] [place], [address] Potassium Normal 3.3-5.1 [facility] Comment on above: Result Comment: Canc elled via OM: Order cancelled - Patient discharged Performed By: #### L 500.2500, L100.0100 ####[facility] [address] [place], [address] Basic Metabolic Profile (BMP) Normal 133-145 [facility] Comment on above: Result Comment: Canc elled via OM: Order cancelled - Patient discharged Performed By: #### L 500.2500, L100.0100 ####[facility] [address] [place], [address] CBC W/Diff, Automatedon 04-0 Absolute Neut Normal 2.0-7.7 [facility] Comment on above: Result Comment: Canc elled via OM: Order cancelled - Patient discharged Performed By: #### L 500.2500, L100.0100 ####[facility] [address] [place], [address] HCT Normal 37-47 [facility] Comment on above: Result Comment: Canc elled via OM: Order cancelled - Patient discharged Performed By: #### L 500.2500, L100.0100 ####[facility] [address] [place], [address] HGB Normal 12.0-15.0 [facility] Comment on above: Result Comment: Canc elled via OM: Order cancelled - Patient discharged Performed By: #### L 500.2500, L100.0100 ####[facility] [address] [place], [address] MCH Normal 27.0-32.0 [facility] Comment on above: Result Comment: Canc elled via OM: Order cancelled - Patient discharged Performed By: #### L 500.2500, L100.0100 ####[facility] [address] [place], [address] MCHC Normal 32-36 [facility] Comment on above: Result Comment: Canc elled via OM: Order cancelled - Patient discharged Performed By: #### L 500.2500, L100.0100 ####[facility] [address] [place], [address] MCV Normal 81-99 [facility] Comment on above: Result Comment: Canc elled via OM: Order cancelled - Patient discharged Performed By: #### L 500.2500, L100.0100 ####[facility] [address] [place], [address] NEUT% Normal 47-70 [facility] Comment on above: Result Comment: Canc elled via OM: Order cancelled - Patient discharged Performed By: #### L 500.2500, L100.0100 ####[facility] [address] [place], [address] PLT Normal 150-450 [facility] Comment on above: Result Comment: Canc elled via OM: Order cancelled - Patient discharged Performed By: #### L 500.2500, L100.0100 ####[facility] [address] [place], [address] RBC Normal 4.2-5.4 [facility] Comment on above: Result Comment: Canc elled via OM: Order cancelled - Patient discharged Performed By: #### L 500.2500, L100.0100 ####[facility] [address] [place], [address] RDW CV Normal 11.6-14.6 [facility] Comment on above: Result Comment: Canc elled via OM: Order cancelled - Patient discharged Performed By: #### L 500.2500, L100.0100 ####[facility] [address] [place], [address] RDW SD Normal 35.1-43.9 [facility] Comment on above: Result Comment: Canc elled via OM: Order cancelled - Patient discharged Performed By: #### L 500.2500, L100.0100 ####[facility] [address] [place], [address] WBC Normal 4.4-11.0 [facility] Comment on above: Result Comment: Canc elled via OM: Order cancelled - Patient discharged Performed By: #### L 500.2500, L100.0100 ####[facility] [address] [place], [address] Basic Metabolic Profile (BMP )on 09-03-2024 BUN Normal 4-19 [facility] Comment on above: Result Comment: Canc elled via OM: Order cancelled - Patient discharged Performed By: #### L 500.2500, L100.0100 ####[facility] [address] [place], [address] BUN/CRE Normal 10-20 [facility] Comment on above: Result Comment: Canc elled via OM: Order cancelled - Patient discharged Performed By: #### L 500.2500, L100.0100 ####[facility] [address] [place], [address] Calcium Normal 7.6-11.0 [facility] Comment on above: Result Comment: Canc elled via OM: Order cancelled - Patient discharged Performed By: #### L 500.2500, L100.0100 ####[facility] [address] [place], [address] CL Normal 98-108 [facility] Comment on above: Result Comment: Canc elled via OM: Order cancelled - Patient discharged Performed By: #### L 500.2500, L100.0100 ####[facility] [address] [place], [address] CO2 Normal 21.0-32.0 [facility] Comment on above: Result Comment: Canc elled via OM: Order cancelled - Patient discharged Performed By: #### L 500.2500, L100.0100 ####[facility] [address] [place], [address] CREAT,SERUM Normal 0.70-1.20 [facility] Comment on above: Result Comment: Canc elled via OM: Order cancelled - Patient discharged Performed By: #### L 500.2500, L100.0100 ####[facility] [address] [place], [address] eGFR Normal >60 [facility] Comment on above: Result Comment: Canc elled via OM: Order cancelled - Patient discharged Performed By: #### L 500.2500, L100.0100 ####[facility] [address] [place], [address] GAP Normal 5-15 [facility] Comment on above: Result Comment: Canc elled via OM: Order cancelled - Patient discharged Performed By: #### L 500.2500, L100.0100 ####[facility] [address] [place], [address] GLU Normal 70-99 [facility] Comment on above: Result Comment: Canc elled via OM: Order cancelled - Patient discharged Performed By: #### L 500.2500, L100.0100 ####[facility] [address] [place], [address] Potassium Normal 3.3-5.1 [facility] Comment on above: Result Comment: Canc elled via OM: Order cancelled - Patient discharged Performed By: #### L 500.2500, L100.0100 ####[facility] [address] [place], [address] Basic Metabolic Profile (BMP) Normal 133-145 [facility] Comment on above: Result Comment: Canc elled via OM: Order cancelled - Patient discharged Performed By: #### L 500.2500, L100.0100 ####[facility] [address] [place], [address] CBC W/Diff, Automatedon 04-0 Absolute Neut Normal 2.0-7.7 [facility] Comment on above: Result Comment: Canc elled via OM: Order cancelled - Patient discharged Performed By: #### L 500.2500, L100.0100 ####[facility] [address] [place], [address] HCT Normal 37-47 [facility] Comment on above: Result Comment: Canc elled via OM: Order cancelled - Patient discharged Performed By: #### L 500.2500, L100.0100 ####[facility] [address] [place], [address] HGB Normal 12.0-15.0 [facility] Comment on above: Result Comment: Canc elled via OM: Order cancelled - Patient discharged Performed By: #### L 500.2500, L100.0100 ####[facility] [address] [place], [address] MCH Normal 27.0-32.0 [facility] Comment on above: Result Comment: Canc elled via OM: Order cancelled - Patient discharged Performed By: #### L 500.2500, L100.0100 ####[facility] [address] [place], [address] MCHC Normal 32-36 [facility] Comment on above: Result Comment: Canc elled via OM: Order cancelled - Patient discharged Performed By: #### L 500.2500, L100.0100 ####[facility] [address] [place], [address] MCV Normal 81-99 [facility] Comment on above: Result Comment: Canc elled via OM: Order cancelled - Patient discharged Performed By: #### L 500.2500, L100.0100 ####[facility] [address] [place], [address] NEUT% Normal 47-70 [facility] Comment on above: Result Comment: Canc elled via OM: Order cancelled - Patient discharged Performed By: #### L 500.2500, L100.0100 ####[facility] [address] [place], [address] PLT Normal 150-450 [facility] Comment on above: Result Comment: Canc elled via OM: Order cancelled - Patient discharged Performed By: #### L 500.2500, L100.0100 ####[facility] [address] [place], [address] RBC Normal 4.2-5.4 [facility] Comment on above: Result Comment: Canc elled via OM: Order cancelled - Patient discharged Performed By: #### L 500.2500, L100.0100 ####[facility] [address] [place], [address] RDW CV Normal 11.6-14.6 [facility] Comment on above: Result Comment: Canc elled via OM: Order cancelled - Patient discharged Performed By: #### L 500.2500, L100.0100 ####[facility] [address] [place], [address] RDW SD Normal 35.1-43.9 [facility] Comment on above: Result Comment: Canc elled via OM: Order cancelled - Patient discharged Performed By: #### L 500.2500, L100.0100 ####[facility] [address] [place], [address] WBC Normal 4.4-11.0 [facility] Comment on above: Result Comment: Canc elled via OM: Order cancelled - Patient discharged Performed By: #### L 500.2500, L100.0100 ####[facility] [address] [place], [address] Absolute lymphocyte countOrd ered By: Latricia Aaron on 09-02-2024 Lymphocytes Auto (Unsp spec) [#/Vol] 1.33 10*3/uL 0.83-4.51 [facility] Absolute neutrophil countOrd ered By: Latricia Aaron on 09-02-2024 Absolute neutrophil count 7.4 X10^3/uL 2.0-7.7 [facility] Anion gap [Moles/Vol]Ordered By: Latricia Aaron on 09-02-2024 Anion gap in Serum or Plasma 14 5-15 [facility] Anion gap in Serum or Plasma Ordered By: Latricia Aaron on 09-02-2024 Anion gap [Moles/Vol] 14 mmol/L 10-16 [facility] Automated lymphocyte count a s percentage of total leukocytesOrdered By: Latricia Aaron on 09-02-2024 Lymphocytes/100 WBC Auto (Unsp spec) 14.4 % Low 19-41 [facility] BUN/creatinine ratioOrdered By: Latricia Aaron on 09-02-2024 Urea nitrogen/Creatinine [Mass ratio] 22.6 mg/mg High 10-20 [facility] BUN/creatinine ratio 22.6 RATIO High 10-20 [facility] Basic Metabolic Profile (BMP )on 09-02-2024 BUN/CRE 22.6 RATIO High 10-20 [facility] Comment on above: Performed By: #### L 500.2500, L501.5200, L501.2300, L100.0100 ####[facility] [address] [place], [address] ECRCL 105.77 ml/min Normal 50-250 [facility] Comment on above: Performed By: #### L 500.2500, L501.5200, L501.2300, L100.0100 ####[facility] [address] [place], [address] GAP 14 Normal -15 [facility] Comment on above: Performed By: #### L 500.2500, L501.5200, L501.2300, L100.0100 ####[facility] [address] [place], [address] Potassium [Moles/Vol] 3.9 mmol/L Normal 3.3-5.1 [facility] Comment on above: Performed By: #### L 500.2500, L501.5200, L501.2300, L100.0100 ####[facility] [address] [place], [address] Basophil percentageOrdered B y: Latricia Aaron on 09-02-2024 Basophils/100 WBC (Bld) 0.3 % 0-1 [facility] Basophil percentage 0.3 % 0-1 [facility] Bedside Glucoseon 09-02-2024 FINGERSTICK GLU 229 mg/dL High [address] [place] [address] Comment on above: Result Comment: TALIA GEMENT OF PATIENT CARE PER NURSING PROTOCOL Performed By: #### L 501.080 ####[facility] [address] [place], [address] FINGERSTICK GLU 228 mg/dL High [address] [place] [address] Comment on above: Result Comment: TALIA GEMENT OF PATIENT CARE PER NURSING PROTOCOL Performed By: #### L 501.080 ####[facility] [address] [place], [address] FINGERSTICK GLU 248 mg/dL High [address] [place] [address] Comment on above: Result Comment: TALIA GEMENT OF PATIENT CARE PER NURSING PROTOCOL Performed By: #### L 501.080 ####[facility] [address] [place], [address] CBC W/Diff, Automatedon 04- Absolute Lymph 1.33 X10 3/uL Normal 0.83-4.51 [facility] Comment on above: Performed By: #### L 500.2500, L501.5200, L501.2300, L100.0100 ####[facility] [address] [place], [address] Absolute Neut 7.4 X10 3/uL Normal 2.0-7.7 [facility] Comment on above: Performed By: #### L 500.2500, L501.5200, L501.2300, L100.0100 ####[facility] [address] [place], [address] Basophils/100 WBC (Bld) 0.3 % Normal 0-1 [facility] Comment on above: Performed By: #### L 500.2500, L501.5200, L501.2300, L100.0100 ####[facility] [address] [place], [address] Eosinophils/100 WBC (Bld) 0.2 % Normal 0-5 [facility] Comment on above: Performed By: #### L 500.2500, L501.5200, L501.2300, L100.0100 ####[facility] [address] [place], [address] Erythrocyte distribution width (RBC) [Ratio] 13.8 % Normal 11.6-14.6 [facility] Comment on above: Performed By: #### L 500.2500, L501.5200, L501.2300, L100.0100 ####[facility] [address] [place], [address] Hematocrit (Bld) [Volume fraction] 42.7 % Normal 37-47 [facility] Comment on above: Performed By: #### L 500.2500, L501.5200, L501.2300, L100.0100 ####[facility] [address] [place], [address] Hemoglobin (Bld) [Mass/Vol] 14.0 g/dL Normal 12.0-15.0 [facility] Comment on above: Performed By: #### L 500.2500, L501.5200, L501.2300, L100.0100 ####[facility] [address] [place], [address] IG% 0.400 Normal 0.0-0.9 [facility] Comment on above: Result Comment: IG% - Immature Granulocytes (promyelocytes, myelocytes andmetamyelocytes) > 1% indicates that a LEFT SHIFT is Present. Performed By: #### L 500.2500, L501.5200, L501.2300, L100.0100 ####[facility] [address] [place], [address] Lymphocytes/100 WBC (Bld) 14.4 % Low 19-41 [facility] Comment on above: Performed By: #### L 500.2500, L501.5200, L501.2300, L100.0100 ####[facility] [address] [place], [address] MCH (RBC) [Entitic mass] 27.5 pg Normal 27.0-32.0 [facility] Comment on above: Performed By: #### L 500.2500, L501.5200, L501.2300, L100.0100 ####[facility] [address] [place], [address] MCHC (RBC) [Mass/Vol] 32.8 g/dL Normal 32-36 [facility] Comment on above: Performed By: #### L 500.2500, L501.5200, L501.2300, L100.0100 ####[facility] [address] [place], [address] MCV (RBC) [Entitic vol] 83.7 fL Normal 81-99 [facility] Comment on above: Performed By: #### L 500.2500, L501.5200, L501.2300, L100.0100 ####[facility] [address] [place], [address] Monocytes/100 WBC (Bld) 4.0 % Normal 0-10 [facility] Comment on above: Performed By: #### L 500.2500, L501.5200, L501.2300, L100.0100 ####[facility] [address] [place], [address] Neutrophils/100 WBC (Bld) 80.7 % High 47-70 [facility] Comment on above: Performed By: #### L 500.2500, L501.5200, L501.2300, L100.0100 ####[facility] [address] [place], [address] Nucleated RBC (Bld) [#/Vol] 0 10*3/uL Normal 0-5 [facility] Comment on above: Performed By: #### L 500.2500, L501.5200, L501.2300, L100.0100 ####[facility] [address] [place], [address] Platelet mean volume (Bld) [Entitic vol] 8.8 fL Normal 6.2-12.0 [facility] Comment on above: Performed By: #### L 500.2500, L501.5200, L501.2300, L100.0100 ####[facility] [address] [place], [address] Platelets (Bld) [#/Vol] 269 10*3/uL Normal 150-450 [facility] Comment on above: Performed By: #### L 500.2500, L501.5200, L501.2300, L100.0100 ####[facility] [address] [place], [address] RBC (Bld) [#/Vol] 5.10 10*6/uL Normal 4.2-5.4 [facility] Comment on above: Performed By: #### L 500.2500, L501.5200, L501.2300, L100.0100 ####[facility] [address] [place], [address] RDW SD 42.4 fl Normal 35.1-43.9 [facility] Comment on above: Performed By: #### L 500.2500, L501.5200, L501.2300, L100.0100 ####[facility] [address] [place], [address] WBC (Bld) [#/Vol] 9.2 10*3/uL Normal 4.4-11.0 [facility] Comment on above: Performed By: #### L 500.2500, L501.5200, L501.2300, L100.0100 ####[facility] [address] [place], [address] Calcium [Mass/Vol]Ordered By : Latricia Aaron on 09-02-2024 Serum or plasma calcium measurement (mass/volume) 9.4 mg/dL 7.6-11.0 [facility] Carbon dioxide, total [Moles /volume] in Central venous bloodOrdered By: Latricia Aaron on 09-02-2024 CO2 [Moles/Vol] 20.0 mmol/L Low 21.0-32.0 [facility] Comment on above: Performed By: #### L 500.2500, L501.5200, L501.2300, L100.0100 ####[facility] [address] [place], [address] Carbon dioxide, total [Moles/volume] in Central venous blood 20.0 mmol/L Low 21.0-32.0 [facility] Chloride assayOrdered By: Tristan Aaron on 09-02-2024 Chloride [Moles/Vol] 101 mmol/L Normal 98-108 [facility] Comment on above: Performed By: #### L 500.2500, L501.5200, L501.2300, L100.0100 ####[facility] [address] [place], [address] Chloride assay 101 mmol/L 98-108 [facility] Creatinine [Mass/Vol]Ordered By: Latricia Aaron on 09-02-2024 Serum creatinine measurement (mass/volume) 0.67 mg/dL Low 0.70-1.20 [facility] Eosinophil percentageOrdered By: Latricia Aaron on 09-02-2024 Eosinophils/100 WBC (Bld) 0.2 % 0-5 [facility] Eosinophil percentage 0.2 % 0-5 [facility] Erythrocyte distribution wid th (RBC) [Ratio]Ordered By: Latricia Aaron on 09-02-2024 Erythrocyte distribution width ratio 13.8 % 11.6-14.6 [facility] Erythrocyte distribution wid th ratioOrdered By: Latricia Aaron on 09-02-2024 Erythrocyte distribution width (RBC) [Ratio] 13.8 % 11.6-14.6 [facility] Erythrocyte distribution wid th standard deviationOrdered By: Latricia Aaron on 09-02-2024 Erythrocyte distribution width (RBC) [Ratio] 42.4 fl 35.1-43.9 [facility] Erythrocyte distribution width standard deviation 42.4 fl 35.1-43.9 [facility] Estimation of creatinine sylvain aranceOrdered By: Latricia Aaron on 09-02-2024 Estimation of creatinine clearance 105.77 ml/min 50-250 [facility] GFR/1.73 sq M.predicted estephanie g non-blacks MDRD (S/P/Bld) [Vol rate/Area]Ordered By: Latricia Aaron on 09-02-2024 Glomerular filtration rate (GFR) estimation/1.73 sq m using serum, plasma, or whole b 104 >60 [facility] Glomerular filtration rate ( GFR) estimation/1.73 sq m using serum, plasma, or whole bOrdered By: Latricia Aaron on 09-02-2024 GFR/1.73 sq M.predicted among non-blacks MDRD (S/P/Bld) [Vol rate/Area] 104 mL/min/{1.73_m2} Normal >60 [facility] Comment on above: Result Comment: mL/m in/1.73m2 CKD-EPI Creatinine Equation (2020) Performed By: #### L 500.2500, L501.5200, L501.2300, L100.0100 ####[facility] [address] [place], [address] Glucose [Mass/Vol]Ordered By : Latricia Aaron on 09-02-2024 Serum glucose measurement (mass/volume) 242 mg/dL High 70-99 [facility] Glucose measurement at bedsi deOrdered By: Latricia Aaron on 09-02-2024 Glucose [Mass/Vol] 229 mg/dL High 74-106 [facility] Glucose measurement at bedside 229 mg/dL High 74-106 [facility] Hematocrit Auto (Bld) [Volum e fraction]Ordered By: Latricia Aaron on 09-02-2024 Hematocrit (Bld) [Volume fraction] 42.7 % 37-47 [facility] Automated blood hematocrit (percentage) 42.7 % 37-47 [facility] Hemoglobin measurementOrdere d By: Latricia Aaron on 09-02-2024 Hemoglobin (Bld) [Mass/Vol] 14.0 g/dL 12.0-15.0 [facility] Hemoglobin measurement 14.0 g/dL 12.0-15.0 [facility] Immature granulocytes/100 WB C Auto (Bld)Ordered By: Latricia Aaron on 09-02-2024 Immature granulocytes/100 WBC (Bld) 0.400 % 0.0-0.9 [facility] Automated immature granulocyte percentage 0.400 % 0.0-0.9 [facility] Lymphocytes Auto (Unsp spec) [#/Vol]Ordered By: Latricia Aaron on 09-02-2024 Absolute lymphocyte count 1.33 X10^3/uL 0.83-4.51 [facility] Lymphocytes/100 WBC Auto (Un sp spec)Ordered By: Latricia Aaron on 09-02-2024 Automated lymphocyte count as percentage of total leukocytes 14.4 % Low 19-41 [facility] MCV (RBC) [Entitic vol]Order ed By: Latricia Aaron on 09-02-2024 MCV (mean corpuscular volume) determination 83.7 fL 81-99 [facility] MCV (mean corpuscular volume ) determinationOrdered By: Latricia Aaron on 09-02-2024 MCV (RBC) [Entitic vol] 83.7 fL 81-99 [facility] Magnesiumon 09-02-2024 Magnesium [Mass/Vol] 2.0 mg/dL Normal 1.5-2.2 [facility] Comment on above: Performed By: #### L 500.2500, L501.5200, L501.2300, L100.0100 ####[facility] [address] [place], [address] Magnesium (Unsp spec) [Mass/ Vol]Ordered By: Latricia Aaron on 09-02-2024 Magnesium measurement (mass/volume) 2.0 mg/dL 1.5-2.2 [facility] Magnesium measurement (mass/ volume)Ordered By: Latricia Aaron on 09-02-2024 Magnesium (Unsp spec) [Mass/Vol] 2.0 mg/dL 1.5-2.2 [facility] Mean corpuscular hemoglobin (MCH) determinationOrdered By: Latricia Aaron on 09-02-2024 MCH (RBC) [Entitic mass] 27.5 pg 27.0-32.0 [facility] Mean corpuscular hemoglobin (MCH) determination 27.5 pg 27.0-32.0 [facility] Mean corpuscular hemoglobin concentration (MCHC) determinationOrdered By: Latricia Aaron on 09-02-2024 Mean corpuscular hemoglobin concentration (MCHC) determination 32.8 g/dL 32-36 [facility] Mean platelet volume determi nationOrdered By: Latrciia Aaron on 09-02-2024 Mean platelet volume determination 8.8 fl 6.2-12.0 [facility] Monocyte percentageOrdered B y: Latricia Aaron on 09-02-2024 Monocytes/100 WBC (Bld) 4.0 % 0-10 [facility] Monocyte percentage 4.0 % 0-10 [facility] Neutrophil percentageOrdered By: Latricia Aaron on 09-02-2024 Neutrophils/100 WBC (Bld) 80.7 % High 47-70 [facility] Neutrophil percentage 80.7 % High 47-70 [facility] Nucleated red blood cell per centageOrdered By: Latricia Aaron on 09-02-2024 Nucleated red blood cell percentage 0 % 0-5 [facility] Phosphoruson 09-02-2024 Phosphate [Mass/Vol] 2.1 mg/dL Low 2.7-4.5 [facility] Comment on above: Performed By: #### L 500.2500, L501.5200, L501.2300, L100.0100 ####[facility] [address] [place], [address] Platelet countOrdered By: Tristan Aaron on 09-02-2024 Platelets (Bld) [#/Vol] 269 10*3/uL 150-450 [facility] Platelet count 269 K/mm3 150-450 [facility] Potassium (Unsp spec) [Mass/ Vol]Ordered By: Latricia Aaron on 09-02-2024 Potassium measurement (mass/volume) 3.9 mmol/L 3.3-5.1 [facility] Potassium measurement (mass/ volume)Ordered By: Latricia Aaron on 09-02-2024 Potassium (Unsp spec) [Mass/Vol] 3.9 mmol/L 3.3-5.1 [facility] RBC Auto (Bld) [#/Vol]Ordere d By: Latricia Aaron on 09-02-2024 RBC (Bld) [#/Vol] 5.10 10*6/uL 4.2-5.4 [facility] Automated blood erythrocyte count 5.10 M/mm3 4.2-5.4 [facility] Serum creatinine measurement (mass/volume)Ordered By: Latricia Aaron on 09-02-2024 Creatinine [Mass/Vol] 0.67 mg/dL Low 0.70-1.20 [facility] Comment on above: Performed By: #### L 500.2500, L501.5200, L501.2300, L100.0100 ####[facility] [address] [place], [place], [address] Serum glucose measurement (m ass/volume)Ordered By: Latricia Aaron on 09-02-2024 Glucose [Mass/Vol] 242 mg/dL High 70-99 [facility] Comment on above: Performed By: #### L 500.2500, L501.5200, L501.2300, L100.0100 ####[facility] [address] [place], [address] Serum or plasma calcium xiomara urement (mass/volume)Ordered By: Latricia Aaron on 09-02-2024 Calcium [Mass/Vol] 9.4 mg/dL Normal 7.6-11.0 [facility] Comment on above: Performed By: #### L 500.2500, L501.5200, L501.2300, L100.0100 ####[facility] [address] [place], [address] Serum or plasma urea nitroge n measurement (mass/volume)Ordered By: Latricia Aaron on 09-02-2024 Urea nitrogen [Mass/Vol] 15 mg/dL Normal 4-19 [facility] Comment on above: Performed By: #### L 500.2500, L501.5200, L501.2300, L100.0100 ####[facility] [address] [place], [address] Serum phosphorus measurement Ordered By: Latricia Aaron on 09-02-2024 Serum phosphorus measurement 2.1 mg/dL Low 2.7-4.5 [facility] Sodium levelOrdered By: Neymar Aaron on 09-02-2024 Sodium [Moles/Vol] 136 mmol/L Normal 133-145 [facility] Comment on above: Performed By: #### L 500.2500, L501.5200, L501.2300, L100.0100 ####[facility] [address], [address] Sodium level 136 mmol/L 133-145 [facility] Urea nitrogen [Mass/Vol]Orde red By: Latricia Aaron on 09-02-2024 Serum or plasma urea nitrogen measurement (mass/volume) 15 mg/dL - [facility] White blood cell (WBC) count Ordered By: Latricia Aaron on 09-02-2024 WBC (Bld) [#/Vol] 9.2 10*3/uL 4.4-11.0 [facility] White blood cell (WBC) count 9.2 K/mm3 4.4-11.0 [facility] Basic Metabolic Profile (BMP )on 09-01-2024 BUN/CRE 27.7 RATIO High 10-20 [facility] Comment on above: Performed By: #### L 500.2500, L100.0500 ####[facility] [address] [place], [address] Calcium [Mass/Vol] 8.7 mg/dL Normal 7.6-11.0 [facility] Comment on above: Performed By: #### L 500.2500, L100.0500 ####[facility] [address] [place], [address] Chloride [Moles/Vol] 110 mmol/L High 98-108 [facility] Comment on above: Performed By: #### L 500.2500, L100.0500 ####[facility] [address] [place], [address] CO2 [Moles/Vol] 19.8 mmol/L Low 21.0-32.0 [facility] Comment on above: Performed By: #### L 500.2500, L100.0500 ####[facility] [address] [place], [address] Creatinine [Mass/Vol] 0.77 mg/dL Normal 0.70-1.20 [facility] Comment on above: Performed By: #### L 500.2500, L100.0500 ####[facility] [address] [place], [address] ECRCL 91.72 ml/min Normal 50-250 [facility] Comment on above: Performed By: #### L 500.2500, L100.0500 ####[facility] [address] [place], [address] GAP 8 Normal 5-15 [facility] Comment on above: Performed By: #### L 500.2500, L100.0500 ####[facility] [address] [place], [address] GFR/1.73 sq M.predicted among non-blacks MDRD (S/P/Bld) [Vol rate/Area] 93 mL/min/{1.73_m2} Normal >60 [facility] Comment on above: Result Comment: mL/m in/1.73m2 CKD-EPI Creatinine Equation (2020) Performed By: #### L 500.2500, L100.0500 ####[facility] [address] [place], [address] Glucose [Mass/Vol] 93 mg/dL Normal 70-99 [facility] Comment on above: Performed By: #### L 500.2500, L100.0500 ####[facility] [address] [place], [address] Potassium [Moles/Vol] 4.0 mmol/L Normal 3.3-5.1 [facility] Comment on above: Performed By: #### L 500.2500, L100.0500 ####[facility] [address] [place], [address] Sodium [Moles/Vol] 138 mmol/L Normal 133-145 [facility] Comment on above: Performed By: #### L 500.2500, L100.0500 ####[facility] [address] [place], [address] Urea nitrogen [Mass/Vol] 21 mg/dL High 4-19 [facility] Comment on above: Performed By: #### L 500.2500, L100.0500 ####[facility] [address] [place], [address] Bedside Glucoseon 09-01-2024 FINGERSTICK GLU 162 mg/dL High 74-106 [facility] Comment on above: Result Comment: TALIA GEMENT OF PATIENT CARE PER NURSING PROTOCOL Performed By: #### L 501.080 ####[facility] [address] [place], [address] FINGERSTICK GLU 142 mg/dL High 74-106 [facility] Comment on above: Result Comment: TALIA GEMENT OF PATIENT CARE PER NURSING PROTOCOL Performed By: #### L 501.080 ####[facility] [address] [place], [address] FINGERSTICK GLU 58 mg/dL Low 74-106 [facility] Comment on above: Result Comment: TALIA GEMENT OF PATIENT CARE PER NURSING PROTOCOL Performed By: #### L 501.080 ####[facility] [address] [place], [address] FINGERSTICK GLU 80 mg/dL Normal 74-106 [facility] Comment on above: Result Comment: TALIA GEMENT OF PATIENT CARE PER NURSING PROTOCOL Performed By: #### L 501.080 ####[facility] [address] [place], [address] FINGERSTICK GLU 73 mg/dL Low 74-106 [facility] Comment on above: Result Comment: TALIA GEMENT OF PATIENT CARE PER NURSING PROTOCOL Performed By: #### L 501.080 ####[facility] [address] [place], [address] FINGERSTICK GLU 139 mg/dL High 74-106 [facility] Comment on above: Result Comment: TALIA GEMENT OF PATIENT CARE PER NURSING PROTOCOL Performed By: #### L 501.080 ####[facility] [address] [place], [address] FINGERSTICK GLU 90 mg/dL Normal 74-106 [facility] Comment on above: Result Comment: TALIA GEMENT OF PATIENT CARE PER NURSING PROTOCOL Performed By: #### L 501.080 ####[facility] [address] [place], [address] CBC-Complete Blood Cnt No Di ffon 09-01-2024 Erythrocyte distribution width (RBC) [Ratio] 14.2 % Normal 11.6-14.6 [facility] Comment on above: Performed By: #### L 500.2500, L100.0500 ####[facility] [address] [place], [address] Hematocrit (Bld) [Volume fraction] 32.6 % Low 37-47 [facility] Comment on above: Performed By: #### L 500.2500, L100.0500 ####[facility] [address] [place], [address] Hemoglobin (Bld) [Mass/Vol] 10.7 g/dL Low 12.0-15.0 [facility] Comment on above: Performed By: #### L 500.2500, L100.0500 ####[facility] [address] [place], [address] MCH (RBC) [Entitic mass] 28.2 pg Normal 27.0-32.0 [facility] Comment on above: Performed By: #### L 500.2500, L100.0500 ####[facility] [address] [place], [address] MCHC (RBC) [Mass/Vol] 32.8 g/dL Normal 32-36 [facility] Comment on above: Performed By: #### L 500.2500, L100.0500 ####[facility] [address] [place], [address] MCV (RBC) [Entitic vol] 85.8 fL Normal 81-99 [facility] Comment on above: Performed By: #### L 500.2500, L100.0500 ####[facility] [address] [place], [address] Platelet mean volume (Bld) [Entitic vol] 9.0 fL Normal 6.2-12.0 [facility] Comment on above: Performed By: #### L 500.2500, L100.0500 ####[facility] [address] [place], [address] Platelets (Bld) [#/Vol] 238 10*3/uL Normal 150-450 [facility] Comment on above: Performed By: #### L 500.2500, L100.0500 ####[facility] [address] [place], [address] RBC (Bld) [#/Vol] 3.80 10*6/uL Low 4.2-5.4 [facility] Comment on above: Performed By: #### L 500.2500, L100.0500 ####[facility] [address] [place], [address] RDW SD 44.1 fl High 35.1-43.9 [facility] Comment on above: Performed By: #### L 500.2500, L100.0500 ####[facility] [address] [place], [address] WBC (Bld) [#/Vol] 6.6 10*3/uL Normal 4.4-11.0 [facility] Comment on above: Performed By: #### L 500.2500, L100.0500 ####[facility] [address] [place], [address] Echo Complete W/ Contraston 09-01-2024 Echo Complete W/ Contrast Normal [facility] Echocardiogram study reportO rdered By: Alli Brito on 09-01-2024 Study report [facility] Work Phone: Bedside Glucoseon 08-31-2024 FINGERSTICK GLU 228 mg/dL High 74-106 [facility] Comment on above: Result Comment: TALIA GEMENT OF PATIENT CARE PER NURSING PROTOCOL Performed By: #### L 501.080 ####[facility] [address] [place], [address] FINGERSTICK GLU 129 mg/dL High [facility]106 [facility] Comment on above: Result Comment: TALIA GEMENT OF PATIENT CARE PER NURSING PROTOCOL Performed By: #### L 501.080 ####[facility] [address] [place], [address] FINGERSTICK GLU 152 mg/dL High -106 [facility] Comment on above: Result Comment: TALIA GEMENT OF PATIENT CARE PER NURSING PROTOCOL Performed By: #### L 501.080 ####[facility] [address] [place], [address] FINGERSTICK GLU 126 mg/dL High -[address] [place] [address] Comment on above: Result Comment: TALIA GEMENT OF PATIENT CARE PER NURSING PROTOCOL Performed By: #### L 501.080 ####[facility] [address] [place], [address] Bedside Glucoseon 08-30-2024 FINGERSTICK GLU 215 mg/dL High -[address] [place] [address] Comment on above: Result Comment: TALIA GEMENT OF PATIENT CARE PER NURSING PROTOCOL Performed By: #### L 501.080 ####[facility] [address] [place], [address] FINGERSTICK GLU 253 mg/dL High [address] [place] [address] Comment on above: Result Comment: TALIA GEMENT OF PATIENT CARE PER NURSING PROTOCOL Performed By: #### L 501.080 ####[facility] [address] [place], [address] FINGERSTICK GLU 152 mg/dL High [address] [place] [address] Comment on above: Result Comment: TALIA GEMENT OF PATIENT CARE PER NURSING PROTOCOL Performed By: #### L 501.080 ####[facility] [address] [place], [address] FINGERSTICK GLU 117 mg/dL High 74-106 [facility] Comment on above: Result Comment: TALIA GEMENT OF PATIENT CARE PER NURSING PROTOCOL Performed By: #### L 501.080 ####[facility] [address] [place], [address] FINGERSTICK GLU 318 mg/dL High 74-106 [facility] Comment on above: Result Comment: TALIA GEMENT OF PATIENT CARE PER NURSING PROTOCOL Performed By: #### L 501.080 ####[facility] [address] [place], [address] CDIFF (PCR)on 08-30-2024 CDIFF Normal [facility] Comment on above: Performed By: #### M 100.6796, M100.637 ####[facility] [address] [place], [address] ENTERIC PATHOGEN PANEL STOOL on 08-30-2024 EP PANEL Normal [facility] Comment on above: Performed By: #### M 100.6796, M100.637 ####[facility] [address] [place], [address] Basic Metabolic Profile (BMP )on 08-29-2024 BUN/CRE 32.2 RATIO High 10-20 [facility] Comment on above: Performed By: #### L 100.0100, L500.2500 ####[facility] [address] [place], [address] Calcium [Mass/Vol] 8.9 mg/dL Normal 7.6-11.0 [facility] Comment on above: Performed By: #### L 100.0100, L500.2500 ####[facility] [address] [place], [address] Chloride [Moles/Vol] 104 mmol/L Normal 98-108 [facility] Comment on above: Performed By: #### L 100.0100, L500.2500 ####[facility] [address] [place], [address] CO2 [Moles/Vol] 21.3 mmol/L Normal 21.0-32.0 [facility] Comment on above: Performed By: #### L 100.0100, L500.2500 ####[facility] [address] [place], [address] Creatinine [Mass/Vol] 0.80 mg/dL Normal 0.70-1.20 [facility] Comment on above: Performed By: #### L 100.0100, L500.2500 ####[facility] [address] [place], [address] ECRCL 88.59 ml/min Normal 50-250 [facility] Comment on above: Performed By: #### L 100.0100, L500.2500 ####[facility] [address] [place], [address] GAP 10 Normal 5-15 [facility] Comment on above: Performed By: #### L 100.0100, L500.2500 ####[facility] [address] [place], [address] GFR/1.73 sq M.predicted among non-blacks MDRD (S/P/Bld) [Vol rate/Area] 89 mL/min/{1.73_m2} Normal >60 [facility] Comment on above: Result Comment: mL/m in/1.73m2 CKD-EPI Creatinine Equation (2020) Performed By: #### L 100.0100, L500.2500 ####[facility] [address] [place], [address] Glucose [Mass/Vol] 104 mg/dL High 70-99 [facility] Comment on above: Performed By: #### L 100.0100, L500.2500 ####[facility] [address] [place], [address] Potassium [Moles/Vol] 3.7 mmol/L Normal 3.3-5.1 [facility] Comment on above: Performed By: #### L 100.0100, L500.2500 ####[facility] [address] [place], [address] Sodium [Moles/Vol] 135 mmol/L Normal 133-145 [facility] Comment on above: Performed By: #### L 100.0100, L500.2500 ####[facility] [address] [place], [address] Urea nitrogen [Mass/Vol] 26 mg/dL High 4-19 [facility] Comment on above: Performed By: #### L 100.0100, L500.2500 ####[facility] [address] [place], [address] Bedside Glucoseon 08-29-2024 FINGERSTICK GLU 160 mg/dL High 74-106 [facility] Comment on above: Result Comment: TALIA GEMENT OF PATIENT CARE PER NURSING PROTOCOL Performed By: #### L 501.080 ####[facility] [address] [place], [address] FINGERSTICK GLU 156 mg/dL High 74-106 [facility] Comment on above: Result Comment: TALIA GEMENT OF PATIENT CARE PER NURSING PROTOCOL Performed By: #### L 501.080 ####[facility] [address] [place], [address] FINGERSTICK GLU 93 mg/dL Normal 74-106 [facility] Comment on above: Result Comment: TALIA GEMENT OF PATIENT CARE PER NURSING PROTOCOL Performed By: #### L 501.080 ####[facility] [address] [place], [address] CBC W/Diff, Automatedon - Absolute Lymph 2.20 X10 3/uL Normal 0.83-4.51 [facility] Comment on above: Performed By: #### L 100.0100, L500.2500 ####[facility] [address] [place], [address] Absolute Neut 5.8 X10 3/uL Normal 2.0-7.7 [facility] Comment on above: Performed By: #### L 100.0100, L500.2500 ####[facility] [address] [place], [address] Basophils/100 WBC (Bld) 0.6 % Normal 0-1 [facility] Comment on above: Performed By: #### L 100.0100, L500.2500 ####[facility] [address] [place], [address] Eosinophils/100 WBC (Bld) 2.4 % Normal 0-5 [facility] Comment on above: Performed By: #### L 100.0100, L500.2500 ####[facility] [address] [place], [address] Erythrocyte distribution width (RBC) [Ratio] 14.0 % Normal 11.6-14.6 [facility] Comment on above: Performed By: #### L 100.0100, L500.2500 ####[facility] [address] [place], [address] Hematocrit (Bld) [Volume fraction] 33.7 % Low 37-47 [facility] Comment on above: Performed By: #### L 100.0100, L500.2500 ####[facility] [address] [place], [address] Hemoglobin (Bld) [Mass/Vol] 11.2 g/dL Low 12.0-15.0 [facility] Comment on above: Performed By: #### L 100.0100, L500.2500 ####[facility] [address] [place], [address] IG% 0.300 Normal 0.0-0.9 [facility] Comment on above: Result Comment: IG% - Immature Granulocytes (promyelocytes, myelocytes andmetamyelocytes) > 1% indicates that a LEFT SHIFT is Present. Performed By: #### L 100.0100, L500.2500 ####[facility] [address] [place], [address] Lymphocytes/100 WBC (Bld) 24.4 % Normal 19-41 [facility] Comment on above: Performed By: #### L 100.0100, L500.2500 ####[facility] [address] [place], [address] MCH (RBC) [Entitic mass] 28.2 pg Normal 27.0-32.0 [facility] Comment on above: Performed By: #### L 100.0100, L500.2500 ####[facility] [address] [place], [address] MCHC (RBC) [Mass/Vol] 33.2 g/dL Normal 32-36 [facility] Comment on above: Performed By: #### L 100.0100, L500.2500 ####[facility] [address] [place], [address] MCV (RBC) [Entitic vol] 84.9 fL Normal 81-99 [facility] Comment on above: Performed By: #### L 100.0100, L500.2500 ####[facility] [address] [place], [address] Monocytes/100 WBC (Bld) 7.6 % Normal 0-10 [facility] Comment on above: Performed By: #### L 100.0100, L500.2500 ####[facility] [address] [place], [address] Neutrophils/100 WBC (Bld) 64.7 % Normal 47-70 [facility] Comment on above: Performed By: #### L 100.0100, L500.2500 ####[facility] [address] [place], [address] Nucleated RBC (Bld) [#/Vol] 0 10*3/uL Normal 0-5 [facility] Comment on above: Performed By: #### L 100.0100, L500.2500 ####[facility] [address] [place], [address] Platelet mean volume (Bld) [Entitic vol] 9.3 fL Normal 6.2-12.0 [facility] Comment on above: Performed By: #### L 100.0100, L500.2500 ####[facility] [address] [place], [address] Platelets (Bld) [#/Vol] 205 10*3/uL Normal 150-450 [facility] Comment on above: Performed By: #### L 100.0100, L500.2500 ####[facility] [address] [place], [address] RBC (Bld) [#/Vol] 3.97 10*6/uL Low 4.2-5.4 [facility] Comment on above: Performed By: #### L 100.0100, L500.2500 ####[facility] [address] [place], [address] RDW SD 43.4 fl Normal 35.1-43.9 [facility] Comment on above: Performed By: #### L 100.0100, L500.2500 ####[facility] [address] [place], [address] WBC (Bld) [#/Vol] 9.0 10*3/uL Normal 4.4-11.0 [facility] Comment on above: Performed By: #### L 100.0100, L500.2500 ####[facility] [address] [place], [address] Clostridium difficile detect ion by polymerase chain reactionOrdered By: Latricia Burdick on 08-29-2024 C. difficile DNA CRISSY+probe Ql (Unsp spec) [facility] ALP [Catalytic activity/Vol] Ordered By: Nicole Trujillo on 08-28-2024 Serum or plasma alkaline phosphatase measurement 115 U/L High 35-104 [facility] ALT [Catalytic activity/Vol] Ordered By: Nicole Trujillo on 08-28-2024 Serum or plasma alanine aminotransferase (ALT) measurement 11 U/L <35 [facility] Albumin [Mass/Vol]Ordered By : Nicole Trujillo on 08-28-2024 Serum or plasma albumin measurement (mass/volume) 3.2 g/dL Low 3.5-5.0 [facility] Albumin/Globulin [Mass ratio ]Ordered By: Nicole Trujillo on 08-28-2024 Serum or plasma albumin/globulin mass ratio 1.1 RATIO 0.9-2.4 [facility] Bedside Glucoseon 08-28-2024 FINGERSTICK GLU 182 mg/dL High 74-106 [facility] Comment on above: Result Comment: TALIA GEMENT OF PATIENT CARE PER NURSING PROTOCOL Performed By: #### L 501.080 ####[facility] [address] [place], [address] FINGERSTICK GLU 176 mg/dL High 74-106 [facility] Comment on above: Result Comment: TALIA GEMENT OF PATIENT CARE PER NURSING PROTOCOL Performed By: #### L 501.080 ####[facility] [address] [facility] [address] FINGERSTICK GLU 192 mg/dL High 74-106 [facility] Comment on above: Result Comment: TALIA GEMENT OF PATIENT CARE PER NURSING PROTOCOL Performed By: #### L 501.080 ####[facility] [address] [place], [address] FINGERSTICK GLU 157 mg/dL High 74-106 [facility] Comment on above: Result Comment: TALIA CHAMBERS OF PATIENT CARE PER NURSING PROTOCOL Performed By: #### L 501.080 ####[facility] [address] [place], [address] Bilirubin, totalOrdered By: Nicole Trujillo on 08-28-2024 Bilirubin [Mass/Vol] 0.53 mg/dL 0.00-1.30 [facility] Bilirubin, total 0.53 mg/dL 0.00-1.30 [facility] CBC W/Diff, Automatedon 08-03 Absolute Lymph 1.79 X10 3/uL Normal 0.83-4.51 [facility] Comment on above: Performed By: #### L 501.2300, L100.0100, L500.4050, L501.5200 ####[facility] [address] [place], [address] Absolute Neut 5.2 X10 3/uL Normal 2.0-7.7 [facility] Comment on above: Performed By: #### L 501.2300, L100.0100, L500.4050, L501.5200 ####[facility] [address] [place], [address] Basophils/100 WBC (Bld) 0.5 % Normal 0-1 [facility] Comment on above: Performed By: #### L 501.2300, L100.0100, L500.4050, L501.5200 ####[facility] [address] [place], [address] Eosinophils/100 WBC (Bld) 3.0 % Normal 0-5 [facility] Comment on above: Performed By: #### L 501.2300, L100.0100, L500.4050, L501.5200 ####[facility] [address] [place], [address] Erythrocyte distribution width (RBC) [Ratio] 14.3 % Normal 11.6-14.6 [facility] Comment on above: Performed By: #### L 501.2300, L100.0100, L500.4050, L501.5200 ####[facility] [address] [place], [address] Hematocrit (Bld) [Volume fraction] 34.8 % Low 37-47 [facility] Comment on above: Performed By: #### L 501.2300, L100.0100, L500.4050, L501.5200 ####[facility] [address] [place], [address] Hemoglobin (Bld) [Mass/Vol] 11.7 g/dL Low 12.0-15.0 [facility] Comment on above: Performed By: #### L 501.2300, L100.0100, L500.4050, L501.5200 ####[facility] [address] [place], [address] IG% 0.400 Normal 0.0-0.9 [facility] Comment on above: Result Comment: IG% - Immature Granulocytes (promyelocytes, myelocytes andmetamyelocytes) > 1% indicates that a LEFT SHIFT is Present. Performed By: #### L 501.2300, L100.0100, L500.4050, L501.5200 ####[facility] [address] [place], [address] Lymphocytes/100 WBC (Bld) 22.7 % Normal 19-41 [facility] Comment on above: Performed By: #### L 501.2300, L100.0100, L500.4050, L501.5200 ####[facility] [address] [place], [address] MCH (RBC) [Entitic mass] 27.8 pg Normal 27.0-32.0 [facility] Comment on above: Performed By: #### L 501.2300, L100.0100, L500.4050, L501.5200 ####[facility] [address] [place], [address] MCHC (RBC) [Mass/Vol] 33.6 g/dL Normal 32-36 [facility] Comment on above: Performed By: #### L 501.2300, L100.0100, L500.4050, L501.5200 ####[facility] [address] [place], [address] MCV (RBC) [Entitic vol] 82.7 fL Normal 81-99 [facility] Comment on above: Performed By: #### L 501.2300, L100.0100, L500.4050, L501.5200 ####[facility] [address] [place], [address] Monocytes/100 WBC (Bld) 6.7 % Normal 0-10 [facility] Comment on above: Performed By: #### L 501.2300, L100.0100, L500.4050, L501.5200 ####[facility] [address] [place], [address] Neutrophils/100 WBC (Bld) 66.7 % Normal 47-70 [facility] Comment on above: Performed By: #### L 501.2300, L100.0100, L500.4050, L501.5200 ####[facility] [address] [place], [address] Nucleated RBC (Bld) [#/Vol] 0.3 10*3/uL Normal 0-5 [facility] Comment on above: Performed By: #### L 501.2300, L100.0100, L500.4050, L501.5200 ####[facility] [address] [place], [address] Platelet mean volume (Bld) [Entitic vol] 9.8 fL Normal 6.2-12.0 [facility] Comment on above: Performed By: #### L 501.2300, L100.0100, L500.4050, L501.5200 ####[facility] [address] [place], [address] Platelets (Bld) [#/Vol] 203 10*3/uL Normal 150-450 [facility] Comment on above: Performed By: #### L 501.2300, L100.0100, L500.4050, L501.5200 ####[facility] [address] [place], [address] RBC (Bld) [#/Vol] 4.21 10*6/uL Normal 4.2-5.4 [facility] Comment on above: Performed By: #### L 501.2300, L100.0100, L500.4050, L501.5200 ####[facility] [address] [place], [address] RDW SD 42.4 fl Normal 35.1-43.9 [facility] Comment on above: Performed By: #### L 501.2300, L100.0100, L500.4050, L501.5200 ####[facility] [address] [place], [address] WBC (Bld) [#/Vol] 7.9 10*3/uL Normal 4.4-11.0 [facility] Comment on above: Performed By: #### L 501.2300, L100.0100, L500.4050, L501.5200 ####[facility] [address] [place], [address] Comprehensive Metabolic Prof [facility] 08-28-2024 Albumin [Mass/Vol] 3.2 g/dL Low 3.5-5.0 [facility] Comment on above: Performed By: #### L 501.2300, L100.0100, L500.4050, L501.5200 ####[facility] [address] [place], [address] Albumin/Globulin [Mass ratio] 1.1 {ratio} Normal 0.9-2.4 [facility] Comment on above: Performed By: #### L 501.2300, L100.0100, L500.4050, L501.5200 ####[facility] [address] [place], [address] ALK PHOS 115 U/L High 35-104 [facility] Comment on above: Performed By: #### L 501.2300, L100.0100, L500.4050, L501.5200 ####[facility] [address] [place], [address] ALT [Catalytic activity/Vol] 11 U/L Normal <=34 [facility] Comment on above: Performed By: #### L 501.2300, L100.0100, L500.4050, L501.5200 ####[facility] [address] [place], [address] AST [Catalytic activity/Vol] 20 U/L Normal <=31 [facility] Comment on above: Performed By: #### L 501.2300, L100.0100, L500.4050, L501.5200 ####[facility] [address] [place], [address] Bilirubin [Mass/Vol] 0.53 mg/dL Normal 0.00-1.30 [facility] Comment on above: Performed By: #### L 501.2300, L100.0100, L500.4050, L501.5200 ####[facility] [address] [place], [address] BUN/CRE 27.2 RATIO High 10-20 [facility] Comment on above: Performed By: #### L 501.2300, L100.0100, L500.4050, L501.5200 ####[facility] [address] [place], [address] Calcium [Mass/Vol] 9.1 mg/dL Normal 7.6-11.0 [facility] Comment on above: Performed By: #### L 501.2300, L100.0100, L500.4050, L501.5200 ####[facility] [address] [place], [address] Chloride [Moles/Vol] 104 mmol/L Normal 98-108 [facility] Comment on above: Performed By: #### L 501.2300, L100.0100, L500.4050, L501.5200 ####[facility] [address] [place], [address] CO2 [Moles/Vol] 21.5 mmol/L Normal 21.0-32.0 [facility] Comment on above: Performed By: #### L 501.2300, L100.0100, L500.4050, L501.5200 ####[facility] [address] [place], [address] Creatinine [Mass/Vol] 0.71 mg/dL Normal 0.70-1.20 [facility] Comment on above: Performed By: #### L 501.2300, L100.0100, L500.4050, L501.5200 ####[facility] [address] [place], [address] ECRCL 99.53 ml/min Normal 50-250 [facility] Comment on above: Performed By: #### L 501.2300, L100.0100, L500.4050, L501.5200 ####[facility] [address] [place], [address] GAP 10 Normal 5-15 [facility] Comment on above: Performed By: #### L 501.2300, L100.0100, L500.4050, L501.5200 ####[facility] [address] [place], [address] GFR/1.73 sq M.predicted among non-blacks MDRD (S/P/Bld) [Vol rate/Area] 101 mL/min/{1.73_m2} Normal >60 [facility] Comment on above: Result Comment: mL/m in/1.73m2 CKD-EPI Creatinine Equation (2020) Performed By: #### L 501.2300, L100.0100, L500.4050, L501.5200 ####[facility] [address] [place], [address] Globulin (S) [Mass/Vol] 3.0 g/dL Normal 2.2-4.2 [facility] Comment on above: Performed By: #### L 501.2300, L100.0100, L500.4050, L501.5200 ####[facility] [address] [place], [address] Glucose [Mass/Vol] 159 mg/dL High 70-99 [facility] Comment on above: Performed By: #### L 501.2300, L100.0100, L500.4050, L501.5200 ####[facility] [address] [place], [address] Potassium [Moles/Vol] 3.8 mmol/L Normal 3.3-5.1 [facility] Comment on above: Result Comment: Hemo lysis present, Results??could be affected.?? Performed By: #### L 501.2300, L100.0100, L500.4050, L501.5200 ####[facility] [address] [place], [address] Sodium [Moles/Vol] 135 mmol/L Normal 133-145 [facility] Comment on above: Performed By: #### L 501.2300, L100.0100, L500.4050, L501.5200 ####[facility] [address] [place], [address] T PROT 6.3 g/dL Normal 5.9-8.4 [facility] Comment on above: Performed By: #### L 501.2300, L100.0100, L500.4050, L501.5200 ####[facility] [address] [place], [address] Urea nitrogen [Mass/Vol] 19 mg/dL Normal 4-19 [facility] Comment on above: Performed By: #### L 501.2300, L100.0100, L500.4050, L501.5200 ####[facility] [address] [place], [address] Magnesiumon 08-28-2024 Magnesium [Mass/Vol] 2.1 mg/dL Normal 1.5-2.2 [facility] Comment on above: Performed By: #### L 501.2300, L100.0100, L500.4050, L501.5200 ####[facility] [address] [place], [address] No Panel InformationOrdered By: Nicole Trujillo on 08-28-2024 20 U/L <32 [facility] Phosphoruson 08-28-2024 Phosphate [Mass/Vol] 2.7 mg/dL Normal 2.7-4.5 [facility] Comment on above: Performed By: #### L 501.2300, L100.0100, L500.4050, L501.5200 ####[facility] [address] [place], [address] Serum globulin measurementOr dered By: Nicole Trujillo on 08-28-2024 Globulin (S) [Mass/Vol] 3.0 g/dL 2.2-4.2 [facility] Serum globulin measurement 3.0 g/dL 2.2-4.2 [facility] Serum or plasma alanine hamilton otransferase (ALT) measurementOrdered By: Nicole Trujillo on 08-28-2024 ALT [Catalytic activity/Vol] 11 U/L <35 [facility] Serum or plasma albumin xiomara urement (mass/volume)Ordered By: Nicole Trujillo on 08-28-2024 Albumin [Mass/Vol] 3.2 g/dL Low 3.5-5.0 [facility] Serum or plasma albumin/glob ulin mass ratioOrdered By: Nicole Trujillo on 08-28-2024 Albumin/Globulin [Mass ratio] 1.1 {ratio} 0.9-2.4 [facility] Serum or plasma alkaline sabiha sphatase measurementOrdered By: Nicole Trujillo on 08-28-2024 ALP [Catalytic activity/Vol] 115 U/L High 35-104 [facility] Total proteinOrdered By: Jenae Trujillo on 08-28-2024 Protein [Mass/Vol] 6.3 g/dL 5.9-8.4 [facility] Total protein 6.3 g/dL 5.9-8.4 [facility] Activated partial thrombopla stin time (aPTT) in platelet poor plasma by coagulation aOrdered By: Brenda Posadas on 08-27-2024 aPTT Coag (PPP) [Time] 44.8 s High 24.1-36.2 [facility] Ankle Brachial Indexon 08-27 Ankle Brachial Index Normal [facility] Arterial study reportOrdered By: Riccardo Ng on 08-27-2024 Noninvasive arteriosclerosis study report [facility] Work Phone: Basic Metabolic Profile (BMP )on 08-27-2024 BUN/CRE 15.2 RATIO Normal 10-20 [facility] Comment on above: Performed By: #### L 500.2500 ####[facility] [address] [place], [place], [id number] Calcium [Mass/Vol] 8.8 mg/dL Normal 7.6-11.0 [facility] Comment on above: Performed By: #### L 500.2500 ####[facility] [address] [place], [address] Chloride [Moles/Vol] 103 mmol/L Normal 98-108 [facility] Comment on above: Performed By: #### L 500.2500 ####[facility] [address] [place], [address] CO2 [Moles/Vol] 24.9 mmol/L Normal 21.0-32.0 [facility] Comment on above: Performed By: #### L 500.2500 ####[facility] [address] [place], [address] Creatinine [Mass/Vol] 0.79 mg/dL Normal 0.70-1.20 [facility] Comment on above: Performed By: #### L 500.2500 ####[facility] [address] [place], [address] ECRCL 89.03 ml/min Normal 50-250 [facility] Comment on above: Performed By: #### L 500.2500 ####[facility] [address] [place], [address] GAP 10 Normal 5-15 [facility] Comment on above: Performed By: #### L 500.2500 ####[facility] [address] [place], [address] GFR/1.73 sq M.predicted among non-blacks MDRD (S/P/Bld) [Vol rate/Area] 89 mL/min/{1.73_m2} Normal >60 [facility] Comment on above: Result Comment: mL/m in/1.73m2 CKD-EPI Creatinine Equation (2020) Performed By: #### L 500.2500 ####[facility] [address] [place], [address] Glucose [Mass/Vol] 274 mg/dL High 70-99 [facility] Comment on above: Performed By: #### L 500.2500 ####[facility] [address] [place], [address] Potassium [Moles/Vol] 2.8 mmol/L Low 3.3-5.1 [facility] Comment on above: Performed By: #### L 500.2500 ####[facility] [address] [place], [address] Sodium [Moles/Vol] 137 mmol/L Normal 133-145 [facility] Comment on above: Performed By: #### L 500.2500 ####[facility] [address] [place], [address] Urea nitrogen [Mass/Vol] 12 mg/dL Normal 4-19 [facility] Comment on above: Performed By: #### L 500.2500 ####[facility] [address] [place], [address] Bedside Glucoseon 08-27-2024 FINGERSTICK GLU 203 mg/dL High 74-106 [facility] Comment on above: Result Comment: TALIA GEMENT OF PATIENT CARE PER NURSING PROTOCOL Performed By: #### L 501.080 ####[facility] [address] [place], [address] FINGERSTICK GLU 205 mg/dL High 74-106 [facility] Comment on above: Result Comment: TALIA GEMENT OF PATIENT CARE PER NURSING PROTOCOL Performed By: #### L 501.080 ####[facility] [address] [place], [address] FINGERSTICK GLU 225 mg/dL High 74-106 [facility] Comment on above: Result Comment: TALIA GEMENT OF PATIENT CARE PER NURSING PROTOCOL Performed By: #### L 501.080 ####[facility] [address] [place], [address] CBC W/Diff, Automatedon 03-2 Absolute Lymph 1.77 X10 3/uL Normal 0.83-4.51 [facility] Comment on above: Performed By: #### L 300.3900, L100.0100, L501.9520, L500.4050 ####[facility] [address] [place], [address] Absolute Neut 6.2 X10 3/uL Normal 2.0-7.7 [facility] Comment on above: Performed By: #### L 300.3900, L100.0100, L501.9520, L500.4050 ####[facility] [address] [place], [address] Basophils/100 WBC (Bld) 0.7 % Normal 0-1 [facility] Comment on above: Performed By: #### L 300.3900, L100.0100, L501.9520, L500.4050 ####[facility] [address] [place], [address] Eosinophils/100 WBC (Bld) 1.6 % Normal 0-5 [facility] Comment on above: Performed By: #### L 300.3900, L100.0100, L501.9520, L500.4050 ####[facility] [address] [place], [address] Erythrocyte distribution width (RBC) [Ratio] 13.7 % Normal 11.6-14.6 [facility] Comment on above: Performed By: #### L 300.3900, L100.0100, L501.9520, L500.4050 ####[facility] [address] [place], [address] Hematocrit (Bld) [Volume fraction] 33.8 % Low 37-47 [facility] Comment on above: Performed By: #### L 300.3900, L100.0100, L501.9520, L500.4050 ####[facility] [address] [place], [address] Hemoglobin (Bld) [Mass/Vol] 11.6 g/dL Low 12.0-15.0 [facility] Comment on above: Performed By: #### L 300.3900, L100.0100, L501.9520, L500.4050 ####[facility] [address] [place], [address] IG% 0.300 Normal 0.0-0.9 [facility] Comment on above: Result Comment: IG% - Immature Granulocytes (promyelocytes, myelocytes andmetamyelocytes) > 1% indicates that a LEFT SHIFT is Present. Performed By: #### L 300.3900, L100.0100, L501.9520, L500.4050 ####[facility] [address] [place], [address] Lymphocytes/100 WBC (Bld) 20.6 % Normal 19-41 [facility] Comment on above: Performed By: #### L 300.3900, L100.0100, L501.9520, L500.4050 ####[facility] [address] [place], [address] MCH (RBC) [Entitic mass] 28.2 pg Normal 27.0-32.0 [facility] Comment on above: Performed By: #### L 300.3900, L100.0100, L501.9520, L500.4050 ####[facility] [address] [place], [address] MCHC (RBC) [Mass/Vol] 34.3 g/dL Normal 32-36 [facility] Comment on above: Performed By: #### L 300.3900, L100.0100, L501.9520, L500.4050 ####[facility] [address] [place], [address] MCV (RBC) [Entitic vol] 82.0 fL Normal 81-99 [facility] Comment on above: Performed By: #### L 300.3900, L100.0100, L501.9520, L500.4050 ####[facility] [address] [place], [address] Monocytes/100 WBC (Bld) 4.4 % Normal 0-10 [facility] Comment on above: Performed By: #### L 300.3900, L100.0100, L501.9520, L500.4050 ####[facility] [address] [place], [address] Neutrophils/100 WBC (Bld) 72.4 % High 47-70 [facility] Comment on above: Performed By: #### L 300.3900, L100.0100, L501.9520, L500.4050 ####[facility] [address] [place], [address] Nucleated RBC (Bld) [#/Vol] 0 10*3/uL Normal 0-5 [facility] Comment on above: Performed By: #### L 300.3900, L100.0100, L501.9520, L500.4050 ####[facility] [address] [place], [address] Platelet mean volume (Bld) [Entitic vol] 9.2 fL Normal 6.2-12.0 [facility] Comment on above: Performed By: #### L 300.3900, L100.0100, L501.9520, L500.4050 ####[facility] [address] [place], [address] Platelets (Bld) [#/Vol] 229 10*3/uL Normal 150-450 [facility] Comment on above: Performed By: #### L 300.3900, L100.0100, L501.9520, L500.4050 ####[facility] [address] [place], [address] RBC (Bld) [#/Vol] 4.12 10*6/uL Low 4.2-5.4 [facility] Comment on above: Performed By: #### L 300.3900, L100.0100, L501.9520, L500.4050 ####[facility] [address] [place], [address] RDW SD 40.4 fl Normal 35.1-43.9 [facility] Comment on above: Performed By: #### L 300.3900, L100.0100, L501.9520, L500.4050 ####[facility] [address] [place], [address] WBC (Bld) [#/Vol] 8.6 10*3/uL Normal 4.4-11.0 [facility] Comment on above: Performed By: #### L 300.3900, L100.0100, L501.9520, L500.4050 ####[facility] [address] [place], [address] Comprehensive Metabolic Prof [facility] 08-27-2024 Albumin [Mass/Vol] 3.1 g/dL Low 3.5-5.0 [facility] Comment on above: Performed By: #### L 300.3900, L100.0100, L501.9520, L500.4050 ####[facility] [address] [place], [address] Albumin/Globulin [Mass ratio] 1.1 {ratio} Normal 0.9-2.4 [facility] Comment on above: Performed By: #### L 300.3900, L100.0100, L501.9520, L500.4050 ####[facility] [address] [place], [address] ALK PHOS 117 U/L High 35-104 [facility] Comment on above: Performed By: #### L 300.3900, L100.0100, L501.9520, L500.4050 ####[facility] [address] [place], [address] ALT [Catalytic activity/Vol] 13 U/L Normal <=34 [facility] Comment on above: Performed By: #### L 300.3900, L100.0100, L501.9520, L500.4050 ####[facility] [address] [place], [address] AST [Catalytic activity/Vol] 20 U/L Normal <=31 [facility] Comment on above: Performed By: #### L 300.3900, L100.0100, L501.9520, L500.4050 ####[facility] [address] [place], [address] Bilirubin [Mass/Vol] 0.61 mg/dL Normal 0.00-1.30 [facility] Comment on above: Performed By: #### L 300.3900, L100.0100, L501.9520, L500.4050 ####[facility] [address] [place], [address] BUN/CRE 16.7 RATIO Normal 10-20 [facility] Comment on above: Performed By: #### L 300.3900, L100.0100, L501.9520, L500.4050 ####[facility] [address] [place], [address] Calcium [Mass/Vol] 8.8 mg/dL Normal 7.6-11.0 [facility] Comment on above: Performed By: #### L 300.3900, L100.0100, L501.9520, L500.4050 ####[facility] [address] [place], [address] Chloride [Moles/Vol] 102 mmol/L Normal 98-108 [facility] Comment on above: Performed By: #### L 300.3900, L100.0100, L501.9520, L500.4050 ####[facility] [address] [place], [address] CO2 [Moles/Vol] 23.8 mmol/L Normal 21.0-32.0 [facility] Comment on above: Performed By: #### L 300.3900, L100.0100, L501.9520, L500.4050 ####[facility] [address] [place], [address] Creatinine [Mass/Vol] 0.65 mg/dL Low 0.70-1.20 [facility] Comment on above: Performed By: #### L 300.3900, L100.0100, L501.9520, L500.4050 ####[facility] [address] [place], [address] ECRCL 107.70 ml/min Normal 50-250 [facility] Comment on above: Performed By: #### L 300.3900, L100.0100, L501.9520, L500.4050 ####[facility] [address] [place], [address] GAP 9 Normal 5-15 [facility] Comment on above: Performed By: #### L 300.3900, L100.0100, L501.9520, L500.4050 ####[facility] [address] [place], [address] GFR/1.73 sq M.predicted among non-blacks MDRD (S/P/Bld) [Vol rate/Area] 105 mL/min/{1.73_m2} Normal >60 [facility] Comment on above: Result Comment: mL/m in/1.73m2 CKD-EPI Creatinine Equation (2020) Performed By: #### L 300.3900, L100.0100, L501.9520, L500.4050 ####[facility] [address] [place], [address] Globulin (S) [Mass/Vol] 2.9 g/dL Normal 2.2-4.2 [facility] Comment on above: Performed By: #### L 300.3900, L100.0100, L501.9520, L500.4050 ####[facility] [address] [place], [address] Glucose [Mass/Vol] 293 mg/dL High 70-99 [facility] Comment on above: Performed By: #### L 300.3900, L100.0100, L501.9520, L500.4050 ####[facility] [address] [place], [address] Potassium [Moles/Vol] 2.5 mmol/L Invalid Interpretation Code 3.3-5.1 [facility] Comment on above: Result Comment: Crit ical Result(s) Called at:0352 by:??MARTITA FARLEY Results read back by same. Performed By: #### L 300.3900, L100.0100, L501.9520, L500.4050 ####[facility] [address] [place], [address] Sodium [Moles/Vol] 136 mmol/L Normal 133-145 [facility] Comment on above: Performed By: #### L 300.3900, L100.0100, L501.9520, L500.4050 ####[facility] [address] [place], [address] T PROT 5.9 g/dL Normal 5.9-8.4 [facility] Comment on above: Performed By: #### L 300.3900, L100.0100, L501.9520, L500.4050 ####[facility] [address] [place], [address] Urea nitrogen [Mass/Vol] 11 mg/dL Normal 4-19 [facility] Comment on above: Performed By: #### L 300.3900, L100.0100, L501.9520, L500.4050 ####[facility] [address] [place], [address] Consultation - Surgicalon Consultation - Surgical Normal [facility] Electrocardiogram reportOrde red By: Alli Brito on 08-27-2024 EKG study [facility] Work Phone: International normalized rat io (INR) calculationOrdered By: Brenda Posadas on 08-27-2024 International normalized ratio (INR) calculation 1.0 [facility] Magnetic resonance imaging r eportOrdered By: Latricia Vargas on 08-27-2024 Study report [facility] Partial Thromboplast Timeon 08-27-2024 aPTT Coag (Bld) [Time] 44.8 s High 24.1-36.2 [facility] Comment on above: Performed By: #### L 300.4310 ####[facility] [address] [place], [address] aPTT Coag (Bld) [Time] 79.3 s High 24.1-36.2 [facility] Comment on above: Performed By: #### L 300.4310 ####[facility] [address] [place], [address] Prothrombin Time w/INRon INR Coag (PPP) [Relative time] 1.0 {INR} Normal [facility] Comment on above: Performed By: #### L 300.3900, L100.0100, L501.9520, L500.4050 ####[facility] [address] [place], [address] PT Coag (PPP) [Time] 13.2 s Normal 11.7-14.9 [facility] Comment on above: Performed By: #### L 300.3900, L100.0100, L501.9520, L500.4050 ####[facility] [address] [place], [place], [address] Prothrombin timeOrdered By: Brenda Posadas on 08-27-2024 PT Coag (PPP) [Time] 13.2 s 11.7-14.9 [facility] Prothrombin time 13.2 SECONDS 11.7-14.9 [facility] Spine Lumbar (Routine)on Spine Lumbar (Routine) Normal [facility] TSH DL <= 0.005 mIU/L QnOrde red By: Brenda Posadas on 08-27-2024 TSH Qn 1.180 uIU/mL 0.300-4.20 0 [facility] Serum or plasma thyroid stimulating hormone (TSH) measurement by high sensitivity met 1.180 uIU/mL 0.300-4.20 0 [facility] Thyroid Stim Hormone (TSH)on 08-27-2024 TSH 1.180 uIU/mL Normal 0.300-4.20 0 [facility] Comment on above: Performed By: #### L 300.3900, L100.0100, L501.9520, L500.4050 ####[facility] [address] [place], [place], [id number] aPTT Coag (PPP) [Time]Ordere d By: Brenda Posadas on 08-27-2024 Activated partial thromboplastin time (aPTT) in platelet poor plasma by coagulation a 44.8 Seconds High 24.1-36.2 [facility] 12 Lead EKGon 08-26-2024 12 Lead EKG Normal [facility] ALP [Catalytic activity/Vol] Ordered By: Jeison Abrams on 08-26-2024 Serum or plasma alkaline phosphatase measurement 134 U/L High 35-104 [facility] ALT [Catalytic activity/Vol] Ordered By: Jeison Abrams on 08-26-2024 Serum or plasma alanine aminotransferase (ALT) measurement 14 U/L <35 [facility] Absolute neutrophil countOrd ered By: Jeison Abrams on 08-26-2024 Absolute neutrophil count 5.2 X10^3/uL 2.0-7.7 [facility] Albumin [Mass/Vol]Ordered By : Jeison Abrams on 08-26-2024 Serum or plasma albumin measurement (mass/volume) 3.6 g/dL 3.5-5.0 [facility] Anion gap [Moles/Vol]Ordered By: Jeison Abrams on 08-26-2024 Anion gap in Serum or Plasma 11 - [facility] BUN/creatinine ratioOrdered By: Jeison Abrams on 08-26-2024 BUN/creatinine ratio 14.1 RATIO - [facility] Basic Metabolic Profile (BMP )on 08-26-2024 BUN/CRE 14.1 RATIO Normal - [facility] Comment on above: Performed By: #### L 300.3900, L503.7505, L500.2500, L100.0100, L300.4310, L503.6005, L500.3400 ####[facility] [address] [place], [address] Calcium [Mass/Vol] 9.2 mg/dL Normal 7.6-11.0 [facility] Comment on above: Performed By: #### L 300.3900, L503.7505, L500.2500, L100.0100, L300.4310, L503.6005, L500.3400 ####[facility] [address] [place], [address] Chloride [Moles/Vol] 102 mmol/L Normal 98-108 [facility] Comment on above: Performed By: #### L 300.3900, L503.7505, L500.2500, L100.0100, L300.4310, L503.6005, L500.3400 ####[facility] [address] [place], [address] CO2 [Moles/Vol] 22.3 mmol/L Normal 21.0-32.0 [facility] Comment on above: Performed By: #### L 300.3900, L503.7505, L500.2500, L100.0100, L300.4310, L503.6005, L500.3400 ####[facility] [address] [place], [address] Creatinine [Mass/Vol] 0.74 mg/dL Normal 0.70-1.20 [facility] Comment on above: Performed By: #### L 300.3900, L503.7505, L500.2500, L100.0100, L300.4310, L503.6005, L500.3400 ####[facility] [address] [place], [address] ECRCL 97.71 ml/min Normal 50-250 [facility] Comment on above: Performed By: #### L 300.3900, L503.7505, L500.2500, L100.0100, L300.4310, L503.6005, L500.3400 ####[facility] [address] [place], [place], [phone] GAP 11 Normal 5-15 [facility] Comment on above: Performed By: #### L 300.3900, L503.7505, L500.2500, L100.0100, L300.4310, L503.6005, L500.3400 ####[facility] [address] [place], [address] GFR/1.73 sq M.predicted among non-blacks MDRD (S/P/Bld) [Vol rate/Area] 97 mL/min/{1.73_m2} Normal >60 [facility] Comment on above: Result Comment: mL/m in/1.73m2 CKD-EPI Creatinine Equation (2020) Performed By: #### L 300.3900, L503.7505, L500.2500, L100.0100, L300.4310, L503.6005, L500.3400 ####[facility] [address] [place], [address] Glucose [Mass/Vol] 315 mg/dL High 70-99 [facility] Comment on above: Performed By: #### L 300.3900, L503.7505, L500.2500, L100.0100, L300.4310, L503.6005, L500.3400 ####[facility] [address] [place], [address] Potassium [Moles/Vol] 3.4 mmol/L Normal 3.3-5.1 [facility] Comment on above: Result Comment: Hemo lysis present, Results??could be affected.?? Performed By: #### L 300.3900, L503.7505, L500.2500, L100.0100, L300.4310, L503.6005, L500.3400 ####[facility] [address] [place], [address] Sodium [Moles/Vol] 135 mmol/L Normal 133-145 [facility] Comment on above: Performed By: #### L 300.3900, L503.7505, L500.2500, L100.0100, L300.4310, L503.6005, L500.3400 ####[facility] [address] [place], [address] Urea nitrogen [Mass/Vol] 10 mg/dL Normal 4-19 [facility] Comment on above: Performed By: #### L 300.3900, L503.7505, L500.2500, L100.0100, L300.4310, L503.6005, L500.3400 ####[facility] [address] [place], [address] Basophil percentageOrdered B y: Jeison Abrams on 08-26-2024 Basophil percentage 0.7 % 0-1 [facility] Bedside Glucoseon 08-26-2024 FINGERSTICK GLU 193 mg/dL High 74-106 [facility] Comment on above: Result Comment: TALIA CHAMBERS OF PATIENT CARE PER NURSING PROTOCOL Performed By: #### L 501.080 ####[facility] [address] [place], [place], [phone] Bilirubin directOrdered By: Jeison Abrams on 08-26-2024 Bilirubin.direct [Mass/Vol] 0.08 mg/dL 0.00-0.30 [facility] Bilirubin, totalOrdered By: Jeison Abrams on 08-26-2024 Bilirubin, total 0.52 mg/dL 0.00-1.30 [facility] Bilirubin.direct [Mass/Vol]O rdered By: Jeison Abrams on 08-26-2024 Bilirubin direct 0.08 mg/dL 0.00-0.30 [facility] CBC W/Diff, Automatedon 08-03 Absolute Lymph 1.57 X10 3/uL Normal 0.83-4.51 [facility] Comment on above: Performed By: #### L 300.3900, L503.7505, L500.2500, L100.0100, L300.4310, L503.6005, L500.3400 ####[facility] [address] [place], [place], [phone] Absolute Neut 5.2 X10 3/uL Normal 2.0-7.7 [facility] Comment on above: Performed By: #### L 300.3900, L503.7505, L500.2500, L100.0100, L300.4310, L503.6005, L500.3400 ####[facility] [address] [place], [address] Basophils/100 WBC (Bld) 0.7 % Normal 0-1 [facility] Comment on above: Performed By: #### L 300.3900, L503.7505, L500.2500, L100.0100, L300.4310, L503.6005, L500.3400 ####[facility] [address] [place], [address] Eosinophils/100 WBC (Bld) 2.8 % Normal 0-5 [facility] Comment on above: Performed By: #### L 300.3900, L503.7505, L500.2500, L100.0100, L300.4310, L503.6005, L500.3400 ####[facility] [address] [place], [address] Erythrocyte distribution width (RBC) [Ratio] 13.6 % Normal 11.6-14.6 [facility] Comment on above: Performed By: #### L 300.3900, L503.7505, L500.2500, L100.0100, L300.4310, L503.6005, L500.3400 ####[facility] [address] [place], [address] Hematocrit (Bld) [Volume fraction] 40.6 % Normal 37-47 [facility] Comment on above: Performed By: #### L 300.3900, L503.7505, L500.2500, L100.0100, L300.4310, L503.6005, L500.3400 ####[facility] [address] [place], [address] Hemoglobin (Bld) [Mass/Vol] 13.7 g/dL Normal 12.0-15.0 [facility] Comment on above: Performed By: #### L 300.3900, L503.7505, L500.2500, L100.0100, L300.4310, L503.6005, L500.3400 ####[facility] [address] [place], [address] IG% 0.300 Normal 0.0-0.9 [facility] Comment on above: Result Comment: IG% - Immature Granulocytes (promyelocytes, myelocytes andmetamyelocytes) > 1% indicates that a LEFT SHIFT is Present. Performed By: #### L 300.3900, L503.7505, L500.2500, L100.0100, L300.4310, L503.6005, L500.3400 ####[facility] [address] [place], [address] Lymphocytes/100 WBC (Bld) 20.9 % Normal 19-41 [facility] Comment on above: Performed By: #### L 300.3900, L503.7505, L500.2500, L100.0100, L300.4310, L503.6005, L500.3400 ####[facility] [address] [place], [address] MCH (RBC) [Entitic mass] 27.8 pg Normal 27.0-32.0 [facility] Comment on above: Performed By: #### L 300.3900, L503.7505, L500.2500, L100.0100, L300.4310, L503.6005, L500.3400 ####[facility] [address] [place], [address] MCHC (RBC) [Mass/Vol] 33.7 g/dL Normal 32-36 [facility] Comment on above: Performed By: #### L 300.3900, L503.7505, L500.2500, L100.0100, L300.4310, L503.6005, L500.3400 ####[facility] [address] [place], [address] MCV (RBC) [Entitic vol] 82.4 fL Normal 81-99 [facility] Comment on above: Performed By: #### L 300.3900, L503.7505, L500.2500, L100.0100, L300.4310, L503.6005, L500.3400 ####[facility] [address] [place], [address] Monocytes/100 WBC (Bld) 5.7 % Normal 0-10 [facility] Comment on above: Performed By: #### L 300.3900, L503.7505, L500.2500, L100.0100, L300.4310, L503.6005, L500.3400 ####[facility] [address] [place], [address] Neutrophils/100 WBC (Bld) 69.6 % Normal 47-70 [facility] Comment on above: Performed By: #### L 300.3900, L503.7505, L500.2500, L100.0100, L300.4310, L503.6005, L500.3400 ####[facility] [address] [place], [address] Nucleated RBC (Bld) [#/Vol] 0 10*3/uL Normal 0-5 [facility] Comment on above: Performed By: #### L 300.3900, L503.7505, L500.2500, L100.0100, L300.4310, L503.6005, L500.3400 ####[facility] [address] [place], [address] Platelet mean volume (Bld) [Entitic vol] 9.1 fL Normal 6.2-12.0 [facility] Comment on above: Performed By: #### L 300.3900, L503.7505, L500.2500, L100.0100, L300.4310, L503.6005, L500.3400 ####[facility] [address] [place], [address] Platelets (Bld) [#/Vol] 225 10*3/uL Normal 150-450 [facility] Comment on above: Performed By: #### L 300.3900, L503.7505, L500.2500, L100.0100, L300.4310, L503.6005, L500.3400 ####[facility] [address] [place], [address] RBC (Bld) [#/Vol] 4.93 10*6/uL Normal 4.2-5.4 [facility] Comment on above: Performed By: #### L 300.3900, L503.7505, L500.2500, L100.0100, L300.4310, L503.6005, L500.3400 ####[facility] [address] [place], [address] RDW SD 40.2 fl Normal 35.1-43.9 [facility] Comment on above: Performed By: #### L 300.3900, L503.7505, L500.2500, L100.0100, L300.4310, L503.6005, L500.3400 ####[facility] [address] [place], [address] WBC (Bld) [#/Vol] 7.5 10*3/uL Normal 4.4-11.0 [facility] Comment on above: Performed By: #### L 300.3900, L503.7505, L500.2500, L100.0100, L300.4310, L503.6005, L500.3400 ####[facility] [address] [place], [address] CTA LWR EXTR W/O W/DYEon CTA LWR EXTR W/O W/DYE Normal [facility] Calcium [Mass/Vol]Ordered By : Jeison Abrams on 08-26-2024 Serum or plasma calcium measurement (mass/volume) 9.2 mg/dL 7.6-11.0 [facility] Carbon dioxide, total [Moles /volume] in Central venous bloodOrdered By: Jeison Abrams on 08-26-2024 Carbon dioxide, total [Moles/volume] in Central venous blood 22.3 mmol/L 21.0-32.0 [facility] Chest 1 View (Portable)on Chest 1 View (Portable) Normal [facility] Chloride assayOrdered By: Tristan Abrams on 08-26-2024 Chloride assay 102 mmol/L 98-108 [facility] Creatinine [Mass/Vol]Ordered By: Jeison Abrams on 08-26-2024 Serum creatinine measurement (mass/volume) 0.74 mg/dL 0.70-1.20 [facility] Emergency Department Summary on 08-26-2024 Emergency Department Summary Normal [facility] Eosinophil percentageOrdered By: Jeison Abrams on 08-26-2024 Eosinophil percentage 2.8 % 0-5 [facility] Erythrocyte distribution wid th (RBC) [Entitic vol]Ordered By: Jeison Abrams on 08-26-2024 Erythrocyte distribution width standard deviation 40.2 fl 35.1-43.9 [facility] Erythrocyte distribution wid th (RBC) [Ratio]Ordered By: Jeison Abrams on 08-26-2024 Erythrocyte distribution width ratio 13.6 % 11.6-14.6 [facility] Estimation of creatinine sylvain aranceOrdered By: Jeison Abrams on 08-26-2024 Estimation of creatinine clearance 97.71 ml/min 50-250 [facility] GFR/1.73 sq M.predicted estephanie g non-blacks MDRD (S/P/Bld) [Vol rate/Area]Ordered By: Jeison Abrams on 08-26-2024 Glomerular filtration rate (GFR) estimation/1.73 sq m using serum, plasma, or whole b 97 >60 [facility] Glucose [Mass/Vol]Ordered By : Jeison Abrams on 08-26-2024 Serum glucose measurement (mass/volume) 315 mg/dL High 70-99 [facility] H AND P Exam - Hospitaliston 08-26-2024 H&P Exam - Hospitalist Normal [facility] Hematocrit Auto (Bld) [Volum e fraction]Ordered By: Jeison Abrams on 08-26-2024 Automated blood hematocrit (percentage) 40.6 % 37-47 [facility] Hemoglobin measurementOrdere d By: Jeison Abrams on 08-26-2024 Hemoglobin measurement 13.7 g/dL 12.0-15.0 [facility] Immature granulocytes/100 WB C Auto (Bld)Ordered By: Jeison Abrams on 08-26-2024 Automated immature granulocyte percentage 0.300 % 0.0-0.9 [facility] International normalized rat io (INR) calculationOrdered By: Vaughn Daugherty on 08-26-2024 International normalized ratio (INR) calculation 1.0 [facility] L503.7505on 08-26-2024 Natriuretic peptide B (Bld) [Mass/Vol] 1489 pg/mL High <=900 [facility] Comment on above: Result Comment: Hear t Failure Unlikely: < 300 pg/mLHeart Failure Likely< 50 Years: > 450 pg/mL50-75 Years: > 900 pg/mL>75 Years: > 1800 pg/mL Performed By: #### L 300.3900, L503.7505, L500.2500, L100.0100, L300.4310, L503.6005, L500.3400 ####[facility] [address] [place], [address] Lactic Acidon 08-26-2024 Lactate [Moles/Vol] 1.5 mmol/L Normal 0.0-2.0 [facility] Comment on above: Order Comment: Y Performed By: #### L 300.3900, L503.7505, L500.2500, L100.0100, L300.4310, L503.6005, L500.3400 ####[facility] [id number] [facility]. [place], [place], [id number] Lactic acid measurementOrder ed By: Jeison Abrams on 08-26-2024 Lactic acid measurement 1.5 mmol/L 0.0-2.0 [facility] Liver Profileon 08-26-2024 Albumin [Mass/Vol] 3.6 g/dL Normal 3.5-5.0 [facility] Comment on above: Performed By: #### L 300.3900, L503.7505, L500.2500, L100.0100, L300.4310, L503.6005, L500.3400 ####[facility] [address] [place], [address] ALK PHOS 134 U/L High 35-104 [facility] Comment on above: Performed By: #### L 300.3900, L503.7505, L500.2500, L100.0100, L300.4310, L503.6005, L500.3400 ####[facility] [address] [place], [address] ALT [Catalytic activity/Vol] 14 U/L Normal <=34 [facility] Comment on above: Performed By: #### L 300.3900, L503.7505, L500.2500, L100.0100, L300.4310, L503.6005, L500.3400 ####[facility] [address] [place], [address] AST [Catalytic activity/Vol] 27 U/L Normal <=31 [facility] Comment on above: Result Comment: Hemo lysis present, Results??could be affected.?? Performed By: #### L 300.3900, L503.7505, L500.2500, L100.0100, L300.4310, L503.6005, L500.3400 ####[facility] [address] [place], [address] Bilirubin [Mass/Vol] 0.52 mg/dL Normal 0.00-1.30 [facility] Comment on above: Performed By: #### L 300.3900, L503.7505, L500.2500, L100.0100, L300.4310, L503.6005, L500.3400 ####[facility] [address] [place], [address] Bilirubin.direct [Mass/Vol] 0.08 mg/dL Normal 0.00-0.30 [facility] Comment on above: Result Comment: Hemo lysis present, Results??could be affected.?? Performed By: #### L 300.3900, L503.7505, L500.2500, L100.0100, L300.4310, L503.6005, L500.3400 ####[facility] [address] [place], [address] Globulin (S) [Mass/Vol] 3.4 g/dL Normal 2.2-4.2 [facility] Comment on above: Performed By: #### L 300.3900, L503.7505, L500.2500, L100.0100, L300.4310, L503.6005, L500.3400 ####[facility] [address], [address] T PROT 7.0 g/dL Normal 5.9-8.4 [facility] Comment on above: Performed By: #### L 300.3900, L503.7505, L500.2500, L100.0100, L300.4310, L503.6005, L500.3400 ####[facility] [address] [place], [place], [phone] Lymphocytes Auto (Unsp spec) [#/Vol]Ordered By: Jeison Abrams on 08-26-2024 Absolute lymphocyte count 1.57 X10^3/uL 0.83-4.51 [facility] Lymphocytes/100 WBC Auto (Un sp spec)Ordered By: Jeison Abrams on 08-26-2024 Automated lymphocyte count as percentage of total leukocytes 20.9 % 19-41 [facility] MCV (RBC) [Entitic vol]Order ed By: Jeison Abrams on 08-26-2024 MCV (mean corpuscular volume) determination 82.4 fL 81-99 [facility] Mean corpuscular hemoglobin (MCH) determinationOrdered By: Jeison Abrams on 08-26-2024 Mean corpuscular hemoglobin (MCH) determination 27.8 pg 27.0-32.0 [facility] Mean corpuscular hemoglobin concentration (MCHC) determinationOrdered By: Jeison Abrams on 08-26-2024 Mean corpuscular hemoglobin concentration (MCHC) determination 33.7 g/dL 32-36 [facility] Mean platelet volume determi nationOrdered By: Jeison Abrams on 08-26-2024 Mean platelet volume determination 9.1 fl 6.2-12.0 [facility] Monocyte percentageOrdered B y: Jeison Abrams on 08-26-2024 Monocyte percentage 5.7 % 0-10 [facility] Neutrophil percentageOrdered By: Jeison Abrams on 08-26-2024 Neutrophil percentage 69.6 % 47-70 [facility] No Panel InformationOrdered By: Jeison Abrams on 08-26-2024 27 U/L <32 [facility] 1489 pg/mL High <900 [facility] Nucleated red blood cell per centageOrdered By: Jeison Abrams on 08-26-2024 Nucleated red blood cell percentage 0 % 0-5 [facility] Partial Thromboplast Timeon 08-26-2024 aPTT Coag (Bld) [Time] 26.5 s Normal 24.1-36.2 [facility] Comment on above: Performed By: #### L 300.3900, L300.4310 ####[facility] [address] [place], [place], [id number] aPTT Coag (Bld) [Time] 26.8 s Normal 24.1-36.2 [facility] Comment on above: Performed By: #### L 300.3900, L503.7505, L500.2500, L100.0100, L300.4310, L503.6005, L500.3400 ####[facility] [address], [address] Platelet countOrdered By: Tristan Abrams on 08-26-2024 Platelet count 225 K/mm3 150-450 [facility] Potassium (Unsp spec) [Mass/ Vol]Ordered By: Jeison Abrams on 08-26-2024 Potassium measurement (mass/volume) 3.4 mmol/L 3.3-5.1 [facility] Prothrombin Time w/INRon INR Coag (PPP) [Relative time] 1.0 {INR} Normal [facility] Comment on above: Performed By: #### L 300.3900, L300.4310 ####[facility] [address] [place], [address] PT Coag (PPP) [Time] 12.8 s Normal 11.7-14.9 [facility] Comment on above: Performed By: #### L 300.3900, L300.4310 ####[facility] [address] [place], [address] INR Coag (PPP) [Relative time] 0.9 {INR} Normal [facility] Comment on above: Performed By: #### L 300.3900, L503.7505, L500.2500, L100.0100, L300.4310, L503.6005, L500.3400 ####[facility] [address] [place], [address] PT Coag (PPP) [Time] 12.3 s Normal 11.7-14.9 [facility] Comment on above: Performed By: #### L 300.3900, L503.7505, L500.2500, L100.0100, L300.4310, L503.6005, L500.3400 ####[facility] [address] [place], [address] Prothrombin timeOrdered By: Vaughn Daugherty on 08-26-2024 Prothrombin time 12.8 SECONDS 11.7-14.9 [facility] RBC Auto (Bld) [#/Vol]Ordere d By: Jeison Abrams on 08-26-2024 Automated blood erythrocyte count 4.93 M/mm3 4.2-5.4 [facility] Serum globulin measurementOr dered By: Jeison Abrams on 08-26-2024 Serum globulin measurement 3.4 g/dL 2.2-4.2 [facility] Sodium levelOrdered By: Sj Abrams on 08-26-2024 Sodium level 135 mmol/L 133-145 [facility] Total proteinOrdered By: Gualberto Abarms on 08-26-2024 Total protein 7.0 g/dL 5.9-8.4 [facility] Urea nitrogen [Mass/Vol]Orde red By: Jeison Abrams on 08-26-2024 Serum or plasma urea nitrogen measurement (mass/volume) 10 mg/dL 4-19 [facility] Venous Duplex US, Unilateral on 08-26-2024 Venous Duplex US, Unilateral Normal [facility] Venous duplex ultrasound rep ortOrdered By: Riccardo Ng on 08-26-2024 US Vein [facility] Work Phone: White blood cell (WBC) count Ordered By: Jeison Abrams on 08-26-2024 White blood cell (WBC) count 7.5 K/mm3 4.4-11.0 [facility] aPTT Coag (PPP) [Time]Ordere d By: Vaughn Daugherty on 08-26-2024 Activated partial thromboplastin time (aPTT) in platelet poor plasma by coagulation a 26.5 Seconds 24.1-36.2 [facility] Urine Cultureon 08-04-2024 URC Normal [facility] Comment on above: Performed By: #### M 100.2200 ####[facility] [address] [place], [address] ALP [Catalytic activity/Vol] Ordered By: Riccardo Hillman on 08-01-2024 Serum or plasma alkaline phosphatase measurement 162 U/L High 35-104 [facility] ALT [Catalytic activity/Vol] Ordered By: Riccardo Hillman on 08-01-2024 Serum or plasma alanine aminotransferase (ALT) measurement 12 U/L <35 [facility] Abdomen/Pelvis W IV Cont ONL Yon 08-01-2024 Abdomen/Pelvis W IV Cont ONLY Normal [facility] Absolute neutrophil countOrd ered By: Riccardo Hillman on 08-01-2024 Absolute neutrophil count 11.1 X10^3/uL High 2.0-7.7 [facility] Acetone Serumon 08-01-2024 ACETONE SERUM Negative Normal NEG [facility] Comment on above: Performed By: #### L 501.6900 ####[facility] [address] [place], [address] Acetone [Mass/Vol]Ordered By : Riccardo Hillman on 08-01-2024 Serum acetone measurement Negative NEG [facility] Albumin [Mass/Vol]Ordered By : Riccardo Hillman on 08-01-2024 Serum or plasma albumin measurement (mass/volume) 4.2 g/dL 3.5-5.0 [facility] Albumin/Globulin [Mass ratio ]Ordered By: Riccardoting Hillman on 08-01-2024 Serum or plasma albumin/globulin mass ratio 1.0 RATIO 0.9-2.4 [facility] Anion gap [Moles/Vol]Ordered By: Riccardo Hillman on 08-01-2024 Serum or plasma anion gap determination (moles/volume) 17 High 5-15 [facility] BUN/creatinine ratioOrdered By: Riccardo Hillman on 08-01-2024 BUN/creatinine ratio 11.8 RATIO 10-20 [facility] Bacteria LM.HPF (Urine sed) [#/Area]Ordered By: Riccardo Hillman on 08-01-2024 Urine sediment bacteria count by microscopy (number/high power field) 4+ /hpf None Seen [facility] Basophil percentageOrdered B y: Riccardo Hillman on 08-01-2024 Basophil percentage 0.5 % 0-1 [facility] Bedside Glucoseon 08-01-2024 FINGERSTICK GLU 225 mg/dL High 74-106 [facility] Comment on above: Result Comment: TALIA CHAMBERS OF PATIENT CARE PER NURSING PROTOCOL Performed By: #### L 501.080 ####[facility] [address] [place], [place], [id number] Bilirubin, totalOrdered By: Riccardo Hillman on 08-01-2024 Bilirubin, total 1.23 mg/dL 0.00-1.30 [facility] CBC W/Diff, Automatedon 02-2 8-2025 Absolute Lymph 1.55 X10 3/uL Normal 0.83-4.51 [facility] Comment on above: Performed By: #### L 501.2450, L500.4050, L100.0100 ####[facility] [address] [place], [address] Absolute Neut 11.1 X10 3/uL High 2.0-7.7 [facility] Comment on above: Performed By: #### L 501.2450, L500.4050, L100.0100 ####[facility] [address] [place], [address] Basophils/100 WBC (Bld) 0.5 % Normal 0-1 [facility] Comment on above: Performed By: #### L 501.2450, L500.4050, L100.0100 ####[facility] [address] [place], [address] Eosinophils/100 WBC (Bld) 0.2 % Normal 0-5 [facility] Comment on above: Performed By: #### L 501.2450, L500.4050, L100.0100 ####[facility] [address] [place], [address] Erythrocyte distribution width (RBC) [Ratio] 14.1 % Normal 11.6-14.6 [facility] Comment on above: Performed By: #### L 501.2450, L500.4050, L100.0100 ####[facility] [address] [place], [address] Hematocrit (Bld) [Volume fraction] 40.8 % Normal 37-47 [facility] Comment on above: Performed By: #### L 501.2450, L500.4050, L100.0100 ####[facility] [address] [place], [address] Hemoglobin (Bld) [Mass/Vol] 13.6 g/dL Normal 12.0-15.0 [facility] Comment on above: Performed By: #### L 501.2450, L500.4050, L100.0100 ####[facility] [address] [place], [address] IG% 0.300 Normal 0.0-0.9 [facility] Comment on above: Result Comment: IG% - Immature Granulocytes (promyelocytes, myelocytes andmetamyelocytes) > 1% indicates that a LEFT SHIFT is Present. Performed By: #### L 501.2450, L500.4050, L100.0100 ####[facility] [address] [place], [address] Lymphocytes/100 WBC (Bld) 11.7 % Low 19-41 [facility] Comment on above: Performed By: #### L 501.2450, L500.4050, L100.0100 ####[facility] [address] [place], [address] MCH (RBC) [Entitic mass] 27.7 pg Normal 27.0-32.0 [facility] Comment on above: Performed By: #### L 501.2450, L500.4050, L100.0100 ####[facility] [address] [place], [address] MCHC (RBC) [Mass/Vol] 33.3 g/dL Normal 32-36 [facility] Comment on above: Performed By: #### L 501.2450, L500.4050, L100.0100 ####[facility] [address] [place], [address] MCV (RBC) [Entitic vol] 83.1 fL Normal 81-99 [facility] Comment on above: Performed By: #### L 501.2450, L500.4050, L100.0100 ####[facility] [address] [place], [address] Monocytes/100 WBC (Bld) 3.4 % Normal 0-10 [facility] Comment on above: Performed By: #### L 501.2450, L500.4050, L100.0100 ####[facility] [address] [place], [address] Neutrophils/100 WBC (Bld) 83.9 % High 47-70 [facility] Comment on above: Performed By: #### L 501.2450, L500.4050, L100.0100 ####[facility] [address] [place], [address] Nucleated RBC (Bld) [#/Vol] 0 10*3/uL Normal 0-5 [facility] Comment on above: Performed By: #### L 501.2450, L500.4050, L100.0100 ####[facility] [address] [place], [address] Platelet mean volume (Bld) [Entitic vol] 9.9 fL Normal 6.2-12.0 [facility] Comment on above: Performed By: #### L 501.2450, L500.4050, L100.0100 ####[facility] [address] [place], [address] Platelets (Bld) [#/Vol] 338 10*3/uL Normal 150-450 [facility] Comment on above: Performed By: #### L 501.2450, L500.4050, L100.0100 ####[facility] [address] [place], [address] RBC (Bld) [#/Vol] 4.91 10*6/uL Normal 4.2-5.4 [facility] Comment on above: Performed By: #### L 501.2450, L500.4050, L100.0100 ####[facility] [address] [place], [address] RDW SD 42.2 fl Normal 35.1-43.9 [facility] Comment on above: Performed By: #### L 501.2450, L500.4050, L100.0100 ####[facility] [address] [place], [address] WBC (Bld) [#/Vol] 13.3 10*3/uL High 4.4-11.0 [facility] Comment on above: Performed By: #### L 501.2450, L500.4050, L100.0100 ####[facility] [address] [place], [address] Calcium [Mass/Vol]Ordered By : Riccardo Hillman on 08-01-2024 Serum or plasma calcium measurement (mass/volume) 9.8 mg/dL 7.6-11.0 [facility] Carbon dioxide measurementOr dered By: Riccardo Hillman on 08-01-2024 Carbon dioxide measurement 22.7 mmol/L 22.0-29.0 [facility] Chloride measurementOrdered By: Riccardo Hillman on 08-01-2024 Chloride measurement 93 mmol/L Low 96-108 [facility] Clarity (U)Ordered By: Riccardo Hillman on 08-01-2024 Urine clarity Cloudy Clear [facility] Color (U)Ordered By: Riccardo latham on 08-01-2024 Urine color determination Yellow Yellow [facility] Comprehensive Metabolic Prof ilon 08-01-2024 Albumin [Mass/Vol] 4.2 g/dL Normal 3.5-5.0 [facility] Comment on above: Performed By: #### L 501.2450, L500.4050, L100.0100 ####[facility] [address] [place], [address] Albumin/Globulin [Mass ratio] 1.0 {ratio} Normal 0.9-2.4 [facility] Comment on above: Performed By: #### L 501.2450, L500.4050, L100.0100 ####[facility] [address] [place], [address] ALK PHOS 162 U/L High 35-104 [facility] Comment on above: Performed By: #### L 501.2450, L500.4050, L100.0100 ####[facility] [address] [place], [address] ALT [Catalytic activity/Vol] 12 U/L Normal <=34 [facility] Comment on above: Performed By: #### L 501.2450, L500.4050, L100.0100 ####[facility] [address] [place], [address] Anion gap [Moles/Vol] 17 mmol/L High 5-15 [facility] Comment on above: Performed By: #### L 501.2450, L500.4050, L100.0100 ####[facility] [address] [place], [address] AST [Catalytic activity/Vol] 24 U/L Normal <=31 [facility] Comment on above: Performed By: #### L 501.2450, L500.4050, L100.0100 ####[facility] [address] [place], [address] Bilirubin [Mass/Vol] 1.23 mg/dL Normal 0.00-1.30 [facility] Comment on above: Performed By: #### L 501.2450, L500.4050, L100.0100 ####[facility] [address] [place], [address] BUN/CRE 11.8 RATIO Normal 10-20 [facility] Comment on above: Performed By: #### L 501.2450, L500.4050, L100.0100 ####[facility] [address] [place], [address] Calcium [Mass/Vol] 9.8 mg/dL Normal 7.6-11.0 [facility] Comment on above: Performed By: #### L 501.2450, L500.4050, L100.0100 ####[facility] [address] [place], [address] Chloride [Moles/Vol] 93 mmol/L Low 96-108 [facility] Comment on above: Performed By: #### L 501.2450, L500.4050, L100.0100 ####[facility] [address] [place], [address] CO2 [Moles/Vol] 22.7 mmol/L Normal 22.0-29.0 [facility] Comment on above: Performed By: #### L 501.2450, L500.4050, L100.0100 ####[facility] [address] [place], [address] Creatinine [Mass/Vol] 0.79 mg/dL Normal 0.70-1.20 [facility] Comment on above: Performed By: #### L 501.2450, L500.4050, L100.0100 ####[facility] [address] [place], [address] ECRCL 91.16 ml/min Normal [facility] Comment on above: Performed By: #### L 501.2450, L500.4050, L100.0100 ####[facility] [address] [place], [address] GFR/1.73 sq M.predicted among non-blacks MDRD (S/P/Bld) [Vol rate/Area] 90 mL/min/{1.73_m2} Normal >60 [facility] Comment on above: Result Comment: mL/m in/1.73m2 CKD-EPI Creatinine Equation (2020) Performed By: #### L 501.2450, L500.4050, L100.0100 ####[facility] [address] [place], [address] Globulin (S) [Mass/Vol] 4.0 g/dL Normal 2.2-4.2 [facility] Comment on above: Performed By: #### L 501.2450, L500.4050, L100.0100 ####[facility] [address] [place], [address] Glucose [Mass/Vol] 410 mg/dL High 70-99 [facility] Comment on above: Performed By: #### L 501.2450, L500.4050, L100.0100 ####[facility] [address] [place], [address] Potassium [Moles/Vol] 3.5 mmol/L Normal 3.3-5.1 [facility] Comment on above: Performed By: #### L 501.2450, L500.4050, L100.0100 ####[facility] [address] [place], [address] Sodium [Moles/Vol] 132 mmol/L Low 133-145 [facility] Comment on above: Performed By: #### L 501.2450, L500.4050, L100.0100 ####[facility] [address] [place], [address] T PROT 8.1 g/dL Normal 5.9-8.4 [facility] Comment on above: Performed By: #### L 501.2450, L500.4050, L100.0100 ####[facility] [address] [place], [address] Urea nitrogen [Mass/Vol] 9 mg/dL Normal 4-19 [facility] Comment on above: Performed By: #### L 501.2450, L500.4050, L100.0100 ####[facility] [address] [place], [address] Creatinine [Mass/Vol]Ordered By: Riccardo Hillman on 08-01-2024 Serum creatinine measurement (mass/volume) 0.79 mg/dL 0.70-1.20 [facility] Emergency Department Summary on 08-01-2024 Emergency Department Summary Normal [facility] Eosinophil percentageOrdered By: Riccardo Hillman on 08-01-2024 Eosinophil percentage 0.2 % 0-5 [facility] Erythrocyte distribution wid th (RBC) [Ratio]Ordered By: Riccardo Hillman on 08-01-2024 Erythrocyte distribution width ratio 14.1 % 11.6-14.6 [facility] Erythrocyte distribution wid th standard deviationOrdered By: Riccardo Hillman on 08-01-2024 Erythrocyte distribution width standard deviation 42.2 fl 35.1-43.9 [facility] Estimation of creatinine sylvain aranceOrdered By: Riccardo Hillman on 08-01-2024 Estimation of creatinine clearance 91.16 ml/min [facility] GFR/1.73 sq M.predicted estephanie g non-blacks MDRD (S/P/Bld) [Vol rate/Area]Ordered By: Riccardo Hillman on 08-01-2024 Glomerular filtration rate (GFR) estimation/1.73 sq m using serum, plasma, or whole b 90 >60 [facility] Glucose Ql (U)Ordered By: Bertram Hillman on 08-01-2024 Urine glucose detection 1000 mg/dl High Normal [facility] Glucose [Mass/Vol]Ordered By : Riccardo Hillman on 08-01-2024 Serum glucose measurement (mass/volume) 410 mg/dL High 70-99 [facility] Glucose measurement at bedsi deOrdered By: Riccardo Hillman on 08-01-2024 Glucose measurement at bedside 225 mg/dL High 74-106 [facility] Hematocrit Auto (Bld) [Volum e fraction]Ordered By: Riccardo Hillman on 08-01-2024 Automated blood hematocrit (percentage) 40.8 % 37-47 [facility] Hemoglobin measurementOrdere d By: Riccardo Hillman on 08-01-2024 Hemoglobin measurement 13.6 g/dL 12.0-15.0 [facility] Immature granulocytes/100 WB C Auto (Bld)Ordered By: Riccardo Hillman on 08-01-2024 Automated immature granulocyte percentage 0.300 % 0.0-0.9 [facility] Leukocyte esterase Test stri p Ql (U)Ordered By: Riccardo Hillman on 08-01-2024 Urine leukocyte esterase detection by dipstick 500 /ul High Negative [facility] Lipaseon 08-01-2024 Lipase [Catalytic activity/Vol] 17 U/L Normal 13-75 [facility] Comment on above: Result Comment: Gege edgar note:LIPASE revised reference range effective 22.New Lipase methodology. Expected to produce lower valuesthan the previous assay method.NEW Reference Range: 13 - 75 U/L Performed By: #### L 501.2450, L500.4050, L100.0100 ####[facility] [address] [place], [address] Lipase measurementOrdered By : Riccardo Hillman on 08-01-2024 Lipase measurement 17 U/L 13-75 [facility] Lymphocytes Auto (Unsp spec) [#/Vol]Ordered By: Riccardo Hillman on 08-01-2024 Absolute lymphocyte count 1.55 X10^3/uL 0.83-4.51 [facility] Lymphocytes/100 WBC Auto (Un sp spec)Ordered By: Riccardo Hillman on 08-01-2024 Automated lymphocyte count as percentage of total leukocytes 11.7 % Low 19-41 [facility] MCV (RBC) [Entitic vol]Order ed By: Riccardo Hillman on 08-01-2024 MCV (mean corpuscular volume) determination 83.1 fL 81-99 [facility] Mean corpuscular hemoglobin (MCH) determinationOrdered By: Riccardo Hillman on 08-01-2024 Mean corpuscular hemoglobin (MCH) determination 27.7 pg 27.0-32.0 [facility] Mean corpuscular hemoglobin concentration (MCHC) determinationOrdered By: Riccardo Hillman on 08-01-2024 Mean corpuscular hemoglobin concentration (MCHC) determination 33.3 g/dL 32-36 [facility] Mean platelet volume determi nationOrdered By: Riccardo Hillman on 08-01-2024 Mean platelet volume determination 9.9 fl 6.2-12.0 [facility] Microscopic analysis of urin e for red blood cells (RBC)Ordered By: Riccardo Hillman on 08-01-2024 Microscopic analysis of urine for red blood cells (RBC) 0-5 SEEN /hpf 5-10 [facility] Monocyte percentageOrdered B y: Riccardo Hillman on 08-01-2024 Monocyte percentage 3.4 % 0-10 [facility] Mucus LM Ql (Urine sed)Order ed By: Riccardo Hillman on 08-01-2024 Mucus detection in urine sediment by light microscopy 0 SEEN /hpf [facility] Neutrophil percentageOrdered By: Riccardo Hillman on 08-01-2024 Neutrophil percentage 83.9 % High 47-70 [facility] No Panel InformationOrdered By: Riccardo Hillman on 08-01-2024 24 U/L <32 [facility] Nucleated red blood cell per centageOrdered By: Riccardo Hillman on 08-01-2024 Nucleated red blood cell percentage 0 % 0-5 [facility] Platelet countOrdered By: Bertram Hillman on 08-01-2024 Platelet count 338 K/mm3 150-450 [facility] Potassium [Moles/Vol]Ordered By: Riccardo Hillman on 08-01-2024 Serum or plasma potassium measurement 3.5 mmol/L 3.3-5.1 [facility] Protein Test strip Ql (U)Ord ered By: Riccardo Hillman on 08-01-2024 Urine protein assay by test strip, semi-quantitative 100 mg/dl High Negative [facility] RBC Auto (Bld) [#/Vol]Ordere d By: Riccardo Hillman on 08-01-2024 Automated blood erythrocyte count 4.91 M/mm3 4.2-5.4 [facility] Serum globulin measurementOr dered By: Riccardo Hillman on 08-01-2024 Serum globulin measurement 4.0 g/dL 2.2-4.2 [facility] Sodium [Moles/Vol]Ordered By : Riccardo Hillman on 08-01-2024 Serum or plasma sodium measurement (moles/volume) 132 mmol/L Low 133-145 [facility] Specific gravity (U) [Rel de nsity]Ordered By: Riccardo Hillman on 08-01-2024 Urine specific gravity measurement 1.010 1.002-1.03 0 [facility] Total proteinOrdered By: Guerita meneses Rafy on 08-01-2024 Total protein 8.1 g/dL 5.9-8.4 [facility] Urea nitrogen [Mass/Vol]Orde red By: Riccardo Hillman on 08-01-2024 Serum or plasma urea nitrogen measurement (mass/volume) 9 mg/dL 4-19 [facility] Urinalysis, Completeon 08-01 BACTERIA 4+ /hpf Normal None Seen [facility] Comment on above: Order Comment: LUISA CTOR TO SPECIFY Performed By: #### L 400.0001 ####[facility] [address] [place] [address] EPI,SQUAMOUS 0-5 SEEN Normal 5-10 [facility] Comment on above: Order Comment: LUISA CTOR TO SPECIFY Performed By: #### L 400.0001 ####[facility] [address] [place] [address] RBC 0-5 SEEN Normal 0-5 [facility] Comment on above: Order Comment: LUISA CTOR TO SPECIFY Performed By: #### L 400.0001 ####[facility] [address] [place] [address] YEAST 1+ /hpf Normal None Seen [facility] Comment on above: Order Comment: LUISA CTOR TO SPECIFY Performed By: #### L 400.0001 ####[facility] [address] [place] [id number] WBC 50-100 SEEN Normal 0-5 [facility] Comment on above: Order Comment: LUISA CTOR TO SPECIFY Performed By: #### L 400.0001 ####[facility] [address] [place] [address] Mucus Ql (Urine sed) 0 SEEN Normal [facility] Comment on above: Order Comment: LUISA CTOR TO SPECIFY Performed By: #### L 400.0001 ####[facility] [address] [place], [place], [id number] Urine blood detectionOrdered By: Riccardo Hillman on 08-01-2024 Urine blood detection 50 /ul High Negative [facility] Urine cultureOrdered By: Guerita Hillman on 08-01-2024 Urine culture ESBL Escherichia coli Abnormal [facility] Urine total bilirubin detect ion by test stripOrdered By: Riccardo Hillman on 08-01-2024 Urine total bilirubin detection by test strip Negative Negative [facility] Urobilinogen Ql (U)Ordered B y: Riccardo Hillman on 08-01-2024 Urine urobilinogen measurement Normal mg/dl Normal [facility] White blood cell (WBC) count Ordered By: Riccardo Hillman on 08-01-2024 White blood cell (WBC) count 13.3 K/mm3 High 4.4-11.0 [facility] White blood cell countOrdere d By: Riccardo Hillman on 08-01-2024 White blood cell count 50-100 SEEN /hpf 0-5 [facility] Yeast LM.HPF (Urine sed) [#/ Area]Ordered By: Riccardo Hillman on 08-01-2024 Urine sediment yeast count by microscopy (number/high powered field) 1+ /hpf None Seen [facility] pH (U)Ordered By: Riccardo rondon on 08-01-2024 Urine pH 6.5 5.0 - 8.0 [facility] Absolute neutrophil countOrd ered By: Nicole Trujillo on 07-03-2024 Absolute neutrophil count 2.6 X10^3/uL 2.0-7.7 [facility] Basic Metabolic Profile (BMP )on 07-03-2024 BUN/CRE 24.4 RATIO High 10-20 [facility] Comment on above: Performed By: #### L 500.2500, L100.0100 ####[facility] [address] [facility] [place], [place], [id number] [place],Total 8.6 mg/dL Normal 8.5-10.1 [facility] Comment on above: Performed By: #### L 500.2500, L100.0100 ####[facility] [address] [place], [address] Chloride [Moles/Vol] 105 mmol/L Normal 98-107 [facility] Comment on above: Performed By: #### L 500.2500, L100.0100 ####[facility] [address] [place], [address] CO2 [Moles/Vol] 27.0 mmol/L Normal 21.0-32.0 [facility] Comment on above: Performed By: #### L 500.2500, L100.0100 ####[facility] [address] [place], [address] Creatinine [Mass/Vol] 0.61 mg/dL Normal 0.55-1.02 [facility] Comment on above: Result Comment: The validity of the calculated GFR GFRAA in patients over70 years has not been determined. Clinical correlation isessential. Performed By: #### L 500.2500, L100.0100 ####[facility] [address] [place], [address] ECRCL 119.69 ml/min Normal [facility] Comment on above: Performed By: #### L 500.2500, L100.0100 ####[facility] [address] [place], [address] EST GFR - AA 131 mL/min Normal >60 [facility] Comment on above: Result Comment: Afri can [place]mani GFR Calc Performed By: #### L 500.2500, L100.0100 ####[facility] [address] [place], [address] GAP 5 Normal 5-15 [facility] Comment on above: Performed By: #### L 500.2500, L100.0100 ####[facility] [address] [place], [address] GFR/1.73 sq M.predicted among non-blacks MDRD (S/P/Bld) [Vol rate/Area] 108 mL/min/{1.73_m2} Normal >60 [facility] Comment on above: Result Comment: Non- GFR Calc Performed By: #### L 500.2500, L100.0100 ####[facility] [address] [place], [address] Glucose [Mass/Vol] 163 mg/dL High 74-106 [facility] Comment on above: Result Comment: Fast ing Glucose result greater than or equal to 126 mg/dLsuggests DIABETES MELLITUS per A.D.A. criteria. Performed By: #### L 500.2500, L100.0100 ####[facility] [address] [place], [address] Potassium [Moles/Vol] 3.4 mmol/L Low 3.5-5.1 [facility] Comment on above: Performed By: #### L 500.2500, L100.0100 ####[facility] [address] [place], [address] Sodium [Moles/Vol] 137 mmol/L Normal 136-145 [facility] Comment on above: Performed By: #### L 500.2500, L100.0100 ####[facility] [address] [place], [address] Urea nitrogen [Mass/Vol] 15 mg/dL Normal 7-18 [facility] Comment on above: Performed By: #### L 500.2500, L100.0100 ####[facility] [address] [place], [address] Basophil percentageOrdered B y: Nicole Trujillo on 07-03-2024 Basophil percentage 0.4 % 0-1 [facility] Bedside Glucoseon 07-03-2024 FINGERSTICK GLU 180 mg/dL High 74-106 [facility] Comment on above: Result Comment: TALIA CHAMBERS OF PATIENT CARE PER NURSING PROTOCOL Performed By: #### L 501.080 ####[facility] [address] [place], [address] FINGERSTICK GLU 137 mg/dL High 74-106 [facility] Comment on above: Result Comment: TALIA CHAMBERS OF PATIENT CARE PER NURSING PROTOCOL Performed By: #### L 501.080 ####[facility] [address] [place], [address] Blood urea nitrogen (BUN)/cr eatinine ratioOrdered By: Nicole Trujillo on 07-03-2024 Blood urea nitrogen (BUN)/creatinine ratio 24.4 RATIO High 10-20 [facility] CBC W/Diff, Automatedon 06-06 Absolute Lymph 1.43 X10 3/uL Normal 0.83-4.51 [facility] Comment on above: Performed By: #### L 500.2500, L100.0100 ####[facility] [address] [place], [address] Absolute Neut 2.6 X10 3/uL Normal 2.0-7.7 [facility] Comment on above: Performed By: #### L 500.2500, L100.0100 ####[facility] [address] [place], [address] Basophils/100 WBC (Bld) 0.4 % Normal 0-1 [facility] Comment on above: Performed By: #### L 500.2500, L100.0100 ####[facility] [address] [place], [address] Eosinophils/100 WBC (Bld) 0.7 % Normal 0-5 [facility] Comment on above: Performed By: #### L 500.2500, L100.0100 ####[facility] [address] [place], [address] Erythrocyte distribution width (RBC) [Ratio] 14.3 % Normal 11.6-14.6 [facility] Comment on above: Performed By: #### L 500.2500, L100.0100 ####[facility] [address] [place], [address] Hematocrit (Bld) [Volume fraction] 32.6 % Low 37-47 [facility] Comment on above: Performed By: #### L 500.2500, L100.0100 ####[facility] [address] [place], [address] Hemoglobin (Bld) [Mass/Vol] 10.8 g/dL Low 12.0-15.0 [facility] Comment on above: Performed By: #### L 500.2500, L100.0100 ####[facility] [address] [place], [address] IG% 0.700 Normal 0.0-0.9 [facility] Comment on above: Result Comment: IG% - Immature Granulocytes (promyelocytes, myelocytes andmetamyelocytes) > 1% indicates that a LEFT SHIFT is Present. Performed By: #### L 500.2500, L100.0100 ####[facility] [address] [place], [address] Lymphocytes/100 WBC (Bld) 32.0 % Normal 19-41 [facility] Comment on above: Performed By: #### L 500.2500, L100.0100 ####[facility] [address] [place], [address] MCH (RBC) [Entitic mass] 27.2 pg Normal 27.0-32.0 [facility] Comment on above: Performed By: #### L 500.2500, L100.0100 ####[facility] [address] [place], [address] MCHC (RBC) [Mass/Vol] 33.1 g/dL Normal 32-36 [facility] Comment on above: Performed By: #### L 500.2500, L100.0100 ####[facility] [address] [place], [address] MCV (RBC) [Entitic vol] 82.1 fL Normal 81-99 [facility] Comment on above: Performed By: #### L 500.2500, L100.0100 ####[facility] [address] [place], [address] Monocytes/100 WBC (Bld) 8.7 % Normal 0-10 [facility] Comment on above: Performed By: #### L 500.2500, L100.0100 ####[facility] [address] [place], [address] Neutrophils/100 WBC (Bld) 57.5 % Normal 47-70 [facility] Comment on above: Performed By: #### L 500.2500, L100.0100 ####[facility] [address] [place], [address] Nucleated RBC (Bld) [#/Vol] 0 10*3/uL Normal 0-5 [facility] Comment on above: Performed By: #### L 500.2500, L100.0100 ####[facility] [address] [place], [address] Platelet mean volume (Bld) [Entitic vol] 10.2 fL Normal 6.2-12.0 [facility] Comment on above: Performed By: #### L 500.2500, L100.0100 ####[facility] [address] [place], [address] Platelets (Bld) [#/Vol] 192 10*3/uL Normal 150-450 [facility] Comment on above: Performed By: #### L 500.2500, L100.0100 ####[facility] [address] [place], [address] RBC (Bld) [#/Vol] 3.97 10*6/uL Low 4.2-5.4 [facility] Comment on above: Performed By: #### L 500.2500, L100.0100 ####[facility] [address] [place], [address] RDW SD 42.9 fl Normal 35.1-43.9 [facility] Comment on above: Performed By: #### L 500.2500, L100.0100 ####[facility] [address] [place], [address] WBC (Bld) [#/Vol] 4.5 10*3/uL Normal 4.4-11.0 [facility] Comment on above: Performed By: #### L 500.2500, L100.0100 ####[facility] [address] [place], [address] Calcium [Mass/Vol]Ordered By : Nicole Trujillo on 07-03-2024 Serum or plasma calcium measurement (mass/volume) 8.6 mg/dL 8.5-10.1 [facility] Carbon dioxide measurementOr dered By: Nicole Trujillo on 07-03-2024 Carbon dioxide measurement 27.0 mmol/L 21.0-32.0 [facility] Chloride measurementOrdered By: Nicole Trujillo on 07-03-2024 Chloride measurement 105 mmol/L 98-107 [facility] Creatinine [Mass/Vol]Ordered By: Nicole Trujillo on 07-03-2024 Serum or plasma creatinine measurement (mass/volume) 0.61 mg/dL 0.55-1.02 [facility] Eosinophil percentageOrdered By: Nicole Trujillo on 07-03-2024 Eosinophil percentage 0.7 % 0-5 [facility] Erythrocyte distribution wid th (RBC) [Ratio]Ordered By: Nicole Trujillo on 07-03-2024 Erythrocyte distribution width ratio 14.3 % 11.6-14.6 [facility] Erythrocyte distribution wid th standard deviationOrdered By: Nicole Trujillo on 07-03-2024 Erythrocyte distribution width standard deviation 42.9 fl 35.1-43.9 [facility] Estimated glomerular filtrat ion rate (GFR) AmericanOrdered By: Nicole Trujillo on 07-03-2024 Estimated glomerular filtration rate (GFR) 131 mL/min >60 [facility] Estimation of creatinine sylvain aranceOrdered By: Nicole Trujillo on 07-03-2024 Estimation of creatinine clearance 119.69 ml/min [facility] Glomerular filtration rate ( GFR) estimationOrdered By: Nicole Trujillo on 07-03-2024 Glomerular filtration rate (GFR) estimation 108 mL/min >60 [facility] Glucose measurementOrdered B y: Nicole Trujillo on 07-03-2024 Glucose measurement 163 mg/dL High 74-106 [facility] Glucose measurement at bedsi deOrdered By: Nicole Trujillo on 07-03-2024 Glucose measurement at bedside 180 mg/dL High 74-106 [facility] Hematocrit Auto (Bld) [Volum e fraction]Ordered By: Nicole Trujillo on 07-03-2024 Automated blood hematocrit (percentage) 32.6 % Low 37-47 [facility] Hemoglobin measurementOrdere d By: Nicole Trujillo on 07-03-2024 Hemoglobin measurement 10.8 g/dL Low 12.0-15.0 [facility] Immature granulocytes/100 WB C Auto (Bld)Ordered By: Nicole Trujillo on 07-03-2024 Automated immature granulocyte percentage 0.700 % 0.0-0.9 [facility] Lymphocytes Auto (Unsp spec) [#/Vol]Ordered By: Nicole Trujillo on 07-03-2024 Absolute lymphocyte count 1.43 X10^3/uL 0.83-4.51 [facility] Lymphocytes/100 WBC Auto (Un sp spec)Ordered By: Nicole Trujillo on 07-03-2024 Automated lymphocyte count as percentage of total leukocytes 32.0 % 19-41 [facility] MCV (RBC) [Entitic vol]Order ed By: Nicole Trujillo on 07-03-2024 MCV (mean corpuscular volume) determination 82.1 fL 81-99 [facility] Mean corpuscular hemoglobin (MCH) determinationOrdered By: Nicole Trujillo on 07-03-2024 Mean corpuscular hemoglobin (MCH) determination 27.2 pg 27.0-32.0 [facility] Mean corpuscular hemoglobin concentration (MCHC) determinationOrdered By: Nicole Trujillo on 07-03-2024 Mean corpuscular hemoglobin concentration (MCHC) determination 33.1 g/dL 32-36 [facility] Mean platelet volume determi nationOrdered By: Nicole Trujillo on 07-03-2024 Mean platelet volume determination 10.2 fl 6.2-12.0 [facility] Monocyte percentageOrdered B y: Nicole Trujillo on 07-03-2024 Monocyte percentage 8.7 % 0-10 [facility] Neutrophil percentageOrdered By: Nicole Trujillo on 07-03-2024 Neutrophil percentage 57.5 % 47-70 [facility] Nucleated red blood cell per centageOrdered By: Nicole Trujillo on 07-03-2024 Nucleated red blood cell percentage 0 % 0-5 [facility] Platelet countOrdered By: Mary Trujillo on 07-03-2024 Platelet count 192 K/mm3 150-450 [facility] Potassium measurementOrdered By: Nicole Trujillo on 07-03-2024 Potassium measurement 3.4 mmol/L Low 3.5-5.1 [facility] RBC Auto (Bld) [#/Vol]Ordere d By: Nicole Trujillo on 07-03-2024 Automated blood erythrocyte count 3.97 M/mm3 Low 4.2-5.4 [facility] Serum anion gap measurementO rdered By: Nicole Trujillo on 07-03-2024 Serum anion gap measurement 5 5-15 [facility] Sodium levelOrdered By: Ifrah Trujillo on 07-03-2024 Sodium level 137 mmol/L 136-145 [facility] Urea nitrogen [Mass/Vol]Orde red By: Nicole Trujillo on 07-03-2024 Serum or plasma urea nitrogen measurement (mass/volume) 15 mg/dL 7-18 [facility] White blood cell (WBC) count Ordered By: Nicole Trujillo on 07-03-2024 White blood cell (WBC) count 4.5 K/mm3 4.4-11.0 [facility] Abdomen/Pel W ORAL Cont Only on 07-02-2024 Abdomen/Pel W ORAL Cont Only Normal [facility] Basic Metabolic Profile (BMP )on 07-02-2024 BUN/CRE 26.7 RATIO High 10-20 [facility] Comment on above: Performed By: #### L 501.5200, L100.0100, L501.2300, L500.2500 ####[facility] [address] [place], [address] CA,Total 8.3 mg/dL Low 8.5-10.1 [facility] Comment on above: Performed By: #### L 501.5200, L100.0100, L501.2300, L500.2500 ####[facility] [address] [place], [address] Chloride [Moles/Vol] 104 mmol/L Normal 98-107 [facility] Comment on above: Performed By: #### L 501.5200, L100.0100, L501.2300, L500.2500 ####[facility] [address] [place], [address] CO2 [Moles/Vol] 24.0 mmol/L Normal 21.0-32.0 [facility] Comment on above: Performed By: #### L 501.5200, L100.0100, L501.2300, L500.2500 ####[facility] [address] [place], [address] Creatinine [Mass/Vol] 0.94 mg/dL Normal 0.55-1.02 [facility] Comment on above: Result Comment: The validity of the calculated GFR GFRAA in patients over70 years has not been determined. Clinical correlation isessential. Performed By: #### L 501.5200, L100.0100, L501.2300, L500.2500 ####[facility] [address] [place], [address] ECRCL 76.61 ml/min Normal [facility] Comment on above: Performed By: #### L 501.5200, L100.0100, L501.2300, L500.2500 ####[facility] [address] [place], [address] EST GFR - AA 81 mL/min Normal >60 [facility] Comment on above: Result Comment: Afri can [place] GFR Calc Performed By: #### L 501.5200, L100.0100, L501.2300, L500.2500 ####[facility] [address] [place], [address] GAP 8 Normal 5-15 [facility] Comment on above: Performed By: #### L 501.5200, L100.0100, L501.2300, L500.2500 ####[facility] [address] [place], [address] GFR/1.73 sq M.predicted among non-blacks MDRD (S/P/Bld) [Vol rate/Area] 67 mL/min/{1.73_m2} Normal >60 [facility] Comment on above: Result Comment: Non- GFR Calc Performed By: #### L 501.5200, L100.0100, L501.2300, L500.2500 ####[facility] [address] [place], [address] Glucose [Mass/Vol] 134 mg/dL High 74-106 [facility] Comment on above: Result Comment: Fast ing Glucose result greater than or equal to 126 mg/dLsuggests DIABETES MELLITUS per A.D.A. criteria. Performed By: #### L 501.5200, L100.0100, L501.2300, L500.2500 ####[facility] [address] [place], [address] Potassium [Moles/Vol] 3.6 mmol/L Normal 3.5-5.1 [facility] Comment on above: Performed By: #### L 501.5200, L100.0100, L501.2300, L500.2500 ####[facility] [address] [place], [address] Sodium [Moles/Vol] 137 mmol/L Normal 136-145 [facility] Comment on above: Performed By: #### L 501.5200, L100.0100, L501.2300, L500.2500 ####[facility] [address] [place], [address] Urea nitrogen [Mass/Vol] 25 mg/dL High 7-18 [facility] Comment on above: Performed By: #### L 501.5200, L100.0100, L501.2300, L500.2500 ####[facility] [address] [place], [address] Bedside Glucoseon 07-02-2024 FINGERSTICK GLU 159 mg/dL High 74-106 [facility] Comment on above: Result Comment: TALIA GEMENT OF PATIENT CARE PER NURSING PROTOCOL Performed By: #### L 501.080 ####[facility] [address] [place], [address] FINGERSTICK GLU 190 mg/dL High 74-106 [facility] Comment on above: Result Comment: TALIA GEMENT OF PATIENT CARE PER NURSING PROTOCOL Performed By: #### L 501.080 ####[facility] [address] [place], [address] FINGERSTICK GLU 155 mg/dL High 74-106 [facility] Comment on above: Result Comment: TALIA GEMENT OF PATIENT CARE PER NURSING PROTOCOL Performed By: #### L 501.080 ####[facility] [address] [place], [address] FINGERSTICK GLU 128 mg/dL High 74-106 [facility] Comment on above: Result Comment: TALIA GEMENT OF PATIENT CARE PER NURSING PROTOCOL Performed By: #### L 501.080 ####[facility] [address] [place], [address] FINGERSTICK GLU 215 mg/dL High 74-106 [facility] Comment on above: Result Comment: TALIA GEMENT OF PATIENT CARE PER NURSING PROTOCOL Performed By: #### L 501.080 ####[facility] [address] [place], [address] CBC W/Diff, Automatedon 01-2 Absolute Lymph 2.11 X10 3/uL Normal 0.83-4.51 [facility] Comment on above: Performed By: #### L 501.5200, L100.0100, L501.2300, L500.2500 ####[facility] [address] [place], [address] Absolute Neut 2.4 X10 3/uL Normal 2.0-7.7 [facility] Comment on above: Performed By: #### L 501.5200, L100.0100, L501.2300, L500.2500 ####[facility] [address] [place], [address] Basophils/100 WBC (Bld) 0.4 % Normal 0-1 [facility] Comment on above: Performed By: #### L 501.5200, L100.0100, L501.2300, L500.2500 ####[facility] [address] [place], [address] Eosinophils/100 WBC (Bld) 0.6 % Normal 0-5 [facility] Comment on above: Performed By: #### L 501.5200, L100.0100, L501.2300, L500.2500 ####[facility] [address] [place], [address] Erythrocyte distribution width (RBC) [Ratio] 14.6 % Normal 11.6-14.6 [facility] Comment on above: Performed By: #### L 501.5200, L100.0100, L501.2300, L500.2500 ####[facility] [address] [place], [address] Hematocrit (Bld) [Volume fraction] 29.5 % Low 37-47 [facility] Comment on above: Performed By: #### L 501.5200, L100.0100, L501.2300, L500.2500 ####[facility] [address] [place], [address] Hemoglobin (Bld) [Mass/Vol] 9.5 g/dL Low 12.0-15.0 [facility] Comment on above: Performed By: #### L 501.5200, L100.0100, L501.2300, L500.2500 ####[facility] [address] [place], [address] IG% 0.400 Normal 0.0-0.9 [facility] Comment on above: Result Comment: IG% - Immature Granulocytes (promyelocytes, myelocytes andmetamyelocytes) > 1% indicates that a LEFT SHIFT is Present. Performed By: #### L 501.5200, L100.0100, L501.2300, L500.2500 ####[facility] [address] [place], [address] Lymphocytes/100 WBC (Bld) 42.8 % High 19-41 [facility] Comment on above: Performed By: #### L 501.5200, L100.0100, L501.2300, L500.2500 ####[facility] [address] [place], [address] MCH (RBC) [Entitic mass] 27.1 pg Normal 27.0-32.0 [facility] Comment on above: Performed By: #### L 501.5200, L100.0100, L501.2300, L500.2500 ####[facility] [address] [place], [address] MCHC (RBC) [Mass/Vol] 32.2 g/dL Normal 32-36 [facility] Comment on above: Performed By: #### L 501.5200, L100.0100, L501.2300, L500.2500 ####[facility] [address] [place], [address] MCV (RBC) [Entitic vol] 84.0 fL Normal 81-99 [facility] [facility] Comment on above: Performed By: #### L 501.5200, L100.0100, L501.2300, L500.2500 ####[facility] [address] [place], [address] Monocytes/100 WBC (Bld) 8.1 % Normal 0-10 [facility] Comment on above: Performed By: #### L 501.5200, L100.0100, L501.2300, L500.2500 ####[facility] [address] [place], [address] Neutrophils/100 WBC (Bld) 47.7 % Normal 47-70 [facility] Comment on above: Performed By: #### L 501.5200, L100.0100, L501.2300, L500.2500 ####[facility] [address] [place], [address] Nucleated RBC (Bld) [#/Vol] 0 10*3/uL Normal 0-5 [facility] Comment on above: Performed By: #### L 501.5200, L100.0100, L501.2300, L500.2500 ####[facility] [address] [place], [address] Platelet mean volume (Bld) [Entitic vol] 9.9 fL Normal 6.2-12.0 [facility] Comment on above: Performed By: #### L 501.5200, L100.0100, L501.2300, L500.2500 ####[facility] [address] [place], [address] Platelets (Bld) [#/Vol] 174 10*3/uL Normal 150-450 [facility] Comment on above: Performed By: #### L 501.5200, L100.0100, L501.2300, L500.2500 ####[facility] [address] [place], [address] RBC (Bld) [#/Vol] 3.51 10*6/uL Low 4.2-5.4 [facility] Comment on above: Performed By: #### L 501.5200, L100.0100, L501.2300, L500.2500 ####[facility] [address] [place], [address] RDW SD 44.8 fl High 35.1-43.9 [facility] Comment on above: Performed By: #### L 501.5200, L100.0100, L501.2300, L500.2500 ####[facility] [address] [place], [address] WBC (Bld) [#/Vol] 4.9 10*3/uL Normal 4.4-11.0 [facility] Comment on above: Performed By: #### L 501.5200, L100.0100, L501.2300, L500.2500 ####[facility] [address] [place], [address] Consultation - Infectious Dx on 07-02-2024 Consultation - Infectious Dx Normal [facility] Ferritinon 07-02-2024 Ferritin [Mass/Vol] 148 ng/mL Normal 8-252 [facility] Comment on above: Performed By: #### L 503.6030, L503.6550 ####[facility] [address] [place], [address] Ferritin measurementOrdered By: Nicole Trujillo on 07-02-2024 Ferritin measurement 148 ng/mL 8-252 [facility] Iron (Unsp spec) [Mass/Mass] Ordered By: Nicole Trujillo on 07-02-2024 Iron measurement (mass/mass) 106 ug/dL 50-170 [facility] Iron saturation [Mass fracti on]Ordered By: Nicole Trujillo on 07-02-2024 Serum or plasma iron saturation measurement (mass fraction) 39.8 % 15.0-55.0 [facility] Iron+Iron Binding Capacityon 07-02-2024 Iron [Mass/Vol] 106 ug/dL Normal 50-170 [facility] Comment on above: Performed By: #### L 503.6030, L503.6550 ####[facility] [address] [place], [address] IRON SATURATION 39.8 Normal 15.0-55.0 [facility] Comment on above: Performed By: #### L 503.6030, L503.6550 ####[facility] [address] [place], [address] TIBC 266 ug/dL Normal 250-450 [facility] Comment on above: Performed By: #### L 503.6030, L503.6550 ####[facility] [address] [place], [address] Magnesiumon 07-02-2024 Magnesium [Mass/Vol] 2.0 mg/dL Normal 1.6-2.6 [facility] Comment on above: Performed By: #### L 501.5200, L100.0100, L501.2300, L500.2500 ####[facility] [address] [place], [address] Magnesium measurementOrdered By: Nicole Trujillo on 07-02-2024 Magnesium measurement 2.0 mg/dL 1.6-2.6 [facility] Phosphoruson 07-02-2024 Phosphate [Mass/Vol] 2.8 mg/dL Normal 2.5-4.9 [facility] Comment on above: Performed By: #### L 501.5200, L100.0100, L501.2300, L500.2500 ####[facility] [address] [place], [address] Phosphorus measurementOrdere d By: Nicole Trujillo on 07-02-2024 Phosphorus measurement 2.8 mg/dL 2.5-4.9 [facility] TIBCOrdered By: Nicole Trujillo on 07-02-2024 TIBC 266 ug/dL 250-450 [facility] Urine Cultureon 07-02-2024 URC Normal [facility] Comment on above: Performed By: #### M 100.2200 ####[facility] [address] [place], [address] ALP [Catalytic activity/Vol] Ordered By: Nicole Trujillo on 07-01-2024 Serum or plasma alkaline phosphatase measurement 80 U/L 45-117 [facility] ALT [Catalytic activity/Vol] Ordered By: Nicole Trujillo on 07-01-2024 Serum or plasma alanine aminotransferase (ALT) measurement 22 U/L 13-56 [facility] Albumin [Mass/Vol]Ordered By : Nicole Trujillo on 07-01-2024 Serum or plasma albumin measurement (mass/volume) 2.7 g/dL Low 3.2-5.0 [facility] Albumin to globulin ratioOrd ered By: Nicole Trujillo on 07-01-2024 Albumin to globulin ratio 0.8 RATIO Low 0.9-2.4 [facility] Bedside Glucoseon 07-01-2024 FINGERSTICK GLU 254 mg/dL High 74-106 [facility] Comment on above: Result Comment: TALIA GEMENT OF PATIENT CARE PER NURSING PROTOCOL Performed By: #### L 501.080 ####[facility] [address] [place], [address] FINGERSTICK GLU 195 mg/dL High 74-106 [facility] Comment on above: Result Comment: TALIA GEMENT OF PATIENT CARE PER NURSING PROTOCOL Performed By: #### L 501.080 ####[facility] [address] [place], [address] FINGERSTICK GLU 117 mg/dL High 74-106 [facility] Comment on above: Result Comment: TALIA GEMENT OF PATIENT CARE PER NURSING PROTOCOL Performed By: #### L 501.080 ####[facility] [address] [place], [address] Bilirubin, totalOrdered By: Nicole Trujillo on 07-01-2024 Bilirubin, total 1.10 mg/dL High 0.20-1.00 [facility] CBC W/Diff, Automatedon 06-05 Absolute Lymph 1.40 X10 3/uL Normal 0.83-4.51 [facility] Comment on above: Performed By: #### L 500.4050, L501.2300, L100.0100, L501.9520, L501.5200 ####[facility] [address] [place], [address] Absolute Neut 3.1 X10 3/uL Normal 2.0-7.7 [facility] Comment on above: Performed By: #### L 500.4050, L501.2300, L100.0100, L501.9520, L501.5200 ####[facility] [address] [place], [address] Basophils/100 WBC (Bld) 0.4 % Normal 0-1 [facility] Comment on above: Performed By: #### L 500.4050, L501.2300, L100.0100, L501.9520, L501.5200 ####[facility] [address] [place], [address] Eosinophils/100 WBC (Bld) 0.2 % Normal 0-5 [facility] Comment on above: Performed By: #### L 500.4050, L501.2300, L100.0100, L501.9520, L501.5200 ####[facility] [address] [place], [address] Erythrocyte distribution width (RBC) [Ratio] 14.6 % Normal 11.6-14.6 [facility] Comment on above: Performed By: #### L 500.4050, L501.2300, L100.0100, L501.9520, L501.5200 ####[facility] [address] [place], [address] Hematocrit (Bld) [Volume fraction] 33.5 % Low 37-47 [facility] Comment on above: Performed By: #### L 500.4050, L501.2300, L100.0100, L501.9520, L501.5200 ####[facility] [address] [place], [address] Hemoglobin (Bld) [Mass/Vol] 10.7 g/dL Low 12.0-15.0 [facility] Comment on above: Performed By: #### L 500.4050, L501.2300, L100.0100, L501.9520, L501.5200 ####[facility] [address] [place], [address] IG% 0.200 Normal 0.0-0.9 [facility] Comment on above: Result Comment: IG% - Immature Granulocytes (promyelocytes, myelocytes andmetamyelocytes) > 1% indicates that a LEFT SHIFT is Present. Performed By: #### L 500.4050, L501.2300, L100.0100, L501.9520, L501.5200 ####[facility] [address] [place], [address] Lymphocytes/100 WBC (Bld) 28.5 % Normal 19-41 [facility] Comment on above: Performed By: #### L 500.4050, L501.2300, L100.0100, L501.9520, L501.5200 ####[facility] [address] [place], [address] MCH (RBC) [Entitic mass] 26.7 pg Low 27.0-32.0 [facility] Comment on above: Performed By: #### L 500.4050, L501.2300, L100.0100, L501.9520, L501.5200 ####[facility] [address] [place], [address] MCHC (RBC) [Mass/Vol] 31.9 g/dL Low 32-36 [facility] Comment on above: Performed By: #### L 500.4050, L501.2300, L100.0100, L501.9520, L501.5200 ####[facility] [address] [place], [address] MCV (RBC) [Entitic vol] 83.5 fL Normal 81-99 [facility] Comment on above: Performed By: #### L 500.4050, L501.2300, L100.0100, L501.9520, L501.5200 ####[facility] [address] [place], [address] Monocytes/100 WBC (Bld) 6.7 % Normal 0-10 [facility] Comment on above: Performed By: #### L 500.4050, L501.2300, L100.0100, L501.9520, L501.5200 ####[facility] [address] [place], [address] Neutrophils/100 WBC (Bld) 64.0 % Normal 47-70 [facility] Comment on above: Performed By: #### L 500.4050, L501.2300, L100.0100, L501.9520, L501.5200 ####[facility] [address] [place], [address] Nucleated RBC (Bld) [#/Vol] 0 10*3/uL Normal 0-5 [facility] Comment on above: Performed By: #### L 500.4050, L501.2300, L100.0100, L501.9520, L501.5200 ####[facility] [address] [place], [address] Platelet mean volume (Bld) [Entitic vol] 9.6 fL Normal 6.2-12.0 [facility] Comment on above: Performed By: #### L 500.4050, L501.2300, L100.0100, L501.9520, L501.5200 ####[facility] [address] [place], [address] Platelets (Bld) [#/Vol] 184 10*3/uL Normal 150-450 [facility] Comment on above: Performed By: #### L 500.4050, L501.2300, L100.0100, L501.9520, L501.5200 ####[facility] [address] [place], [address] RBC (Bld) [#/Vol] 4.01 10*6/uL Low 4.2-5.4 [facility] Comment on above: Performed By: #### L 500.4050, L501.2300, L100.0100, L501.9520, L501.5200 ####[facility] [address] [place], [address] RDW SD 44.7 fl High 35.1-43.9 [facility] Comment on above: Performed By: #### L 500.4050, L501.2300, L100.0100, L501.9520, L501.5200 ####[facility] [address] [place], [address] WBC (Bld) [#/Vol] 4.9 10*3/uL Normal 4.4-11.0 [facility] Comment on above: Performed By: #### L 500.4050, L501.2300, L100.0100, L501.9520, L501.5200 ####[facility] [address] [place], [address] Comprehensive Metabolic Prof ilon 07-01-2024 Albumin [Mass/Vol] 2.7 g/dL Low 3.2-5.0 [facility] Comment on above: Performed By: #### L 500.4050, L501.2300, L100.0100, L501.9520, L501.5200 ####[facility] [address] [place], [address] Albumin/Globulin [Mass ratio] 0.8 {ratio} Low 0.9-2.4 [facility] Comment on above: Performed By: #### L 500.4050, L501.2300, L100.0100, L501.9520, L501.5200 ####[facility] [address] [place], [address] ALK P 80 U/L Normal 45-117 [facility] Comment on above: Performed By: #### L 500.4050, L501.2300, L100.0100, L501.9520, L501.5200 ####[facility] [address] [place], [address] ALT [Catalytic activity/Vol] 22 U/L Normal 13-56 [facility] Comment on above: Performed By: #### L 500.4050, L501.2300, L100.0100, L501.9520, L501.5200 ####[facility] [address] [place], [address] AST [Catalytic activity/Vol] 24 U/L Normal 15-37 [facility] Comment on above: Performed By: #### L 500.4050, L501.2300, L100.0100, L501.9520, L501.5200 ####[facility] [address] [place], [address] Bilirubin [Mass/Vol] 1.10 mg/dL High 0.20-1.00 [facility] Comment on above: Result Comment: For patients on eltrombopag therapy, use of Dimension Nerinx TBIL is not recommended. Performed By: #### L 500.4050, L501.2300, L100.0100, L501.9520, L501.5200 ####[facility] [address] [place], [address] BUN/CRE 22.7 RATIO High 10-20 [facility] Comment on above: Performed By: #### L 500.4050, L501.2300, L100.0100, L501.9520, L501.5200 ####[facility] [address] [place], [address] CA,Total 8.5 mg/dL Normal 8.5-10.1 [facility] Comment on above: Performed By: #### L 500.4050, L501.2300, L100.0100, L501.9520, L501.5200 ####[facility] [address] [place], [address] Chloride [Moles/Vol] 107 mmol/L Normal 98-107 [facility] Comment on above: Performed By: #### L 500.4050, L501.2300, L100.0100, L501.9520, L501.5200 ####[facility] [address] [place], [address] CO2 [Moles/Vol] 21.0 mmol/L Normal 21.0-32.0 [facility] Comment on above: Performed By: #### L 500.4050, L501.2300, L100.0100, L501.9520, L501.5200 ####[facility] [address] [place], [address] Creatinine [Mass/Vol] 1.19 mg/dL High 0.55-1.02 [facility] Comment on above: Result Comment: The validity of the calculated GFR GFRAA in patients over70 years has not been determined. Clinical correlation isessential. Performed By: #### L 500.4050, L501.2300, L100.0100, L501.9520, L501.5200 ####[facility] [address] [place], [address] ECRCL 60.52 ml/min Normal [facility] Comment on above: Performed By: #### L 500.4050, L501.2300, L100.0100, L501.9520, L501.5200 ####[facility] [address] [place], [address] EST GFR - AA 61 mL/min Normal >60 [facility] Comment on above: Result Comment: Afri can Omani GFR Calc Performed By: #### L 500.4050, L501.2300, L100.0100, L501.9520, L501.5200 ####[facility] [address] [place], [address] GAP 9 Normal 5-15 [facility] Comment on above: Performed By: #### L 500.4050, L501.2300, L100.0100, L501.9520, L501.5200 ####[facility] [address] [place], [address] GFR/1.73 sq M.predicted among non-blacks MDRD (S/P/Bld) [Vol rate/Area] 51 mL/min/{1.73_m2} Low >60 [facility] Comment on above: Result Comment: Non- GFR Calc Performed By: #### L 500.4050, L501.2300, L100.0100, L501.9520, L501.5200 ####[facility] [address] [place], [address] Globulin (S) [Mass/Vol] 3.5 g/dL Normal 2.2-4.2 [facility] Comment on above: Performed By: #### L 500.4050, L501.2300, L100.0100, L501.9520, L501.5200 ####[facility] [address] [place], [address] Glucose [Mass/Vol] 159 mg/dL High 74-106 [facility] Comment on above: Result Comment: Fast ing Glucose result greater than or equal to 126 mg/dLsuggests DIABETES MELLITUS per A.D.A. criteria. Performed By: #### L 500.4050, L501.2300, L100.0100, L501.9520, L501.5200 ####[facility] [address] [place], [address] Potassium [Moles/Vol] 3.4 mmol/L Low 3.5-5.1 [facility] Comment on above: Performed By: #### L 500.4050, L501.2300, L100.0100, L501.9520, L501.5200 ####[facility] [address] [place], [address] Sodium [Moles/Vol] 136 mmol/L Normal 136-145 [facility] Comment on above: Performed By: #### L 500.4050, L501.2300, L100.0100, L501.9520, L501.5200 ####[facility] [address] [place], [address] T PROT 6.2 g/dL Low 6.4-8.2 [facility] Comment on above: Performed By: #### L 500.4050, L501.2300, L100.0100, L501.9520, L501.5200 ####[facility] [address] [place], [address] Urea nitrogen [Mass/Vol] 27 mg/dL High 7-18 [facility] Comment on above: Performed By: #### L 500.4050, L501.2300, L100.0100, L501.9520, L501.5200 ####[facility] [address] [place], [address] Magnesiumon 07-01-2024 Magnesium [Mass/Vol] 2.0 mg/dL Normal 1.6-2.6 [facility] Comment on above: Performed By: #### L 500.4050, L501.2300, L100.0100, L501.9520, L501.5200 ####[facility] [address] [place], [address] No Panel InformationOrdered By: Nicole Trujillo on 07-01-2024 24 U/L 15-37 [facility] Phosphoruson 07-01-2024 Phosphate [Mass/Vol] 2.4 mg/dL Low 2.5-4.9 [facility] Comment on above: Performed By: #### L 500.4050, L501.2300, L100.0100, L501.9520, L501.5200 ####[facility] [address] [place], [address] Serum globulin measurementOr dered By: Nicole Trujillo on 07-01-2024 Serum globulin measurement 3.5 g/dL 2.2-4.2 [facility] TSH QnOrdered By: Nicole Gardiner on 07-01-2024 Serum or plasma thyroid stimulating hormone (TSH) measurement (units/volume) 1.730 uIU/mL 0.358-3.74 0 [facility] Thyroid Stim Hormone (TSH)on 07-01-2024 TSH 1.730 uIU/mL Normal 0.358-3.74 0 [facility] Comment on above: Performed By: #### L 500.4050, L501.2300, L100.0100, L501.9520, L501.5200 ####[facility] [address] [place], [address] Total proteinOrdered By: Jenae stephen Ronnie on 07-01-2024 Total protein 6.2 g/dL Low 6.4-8.2 [facility] Bedside Glucoseon 06-30-2024 FINGERSTICK GLU 149 mg/dL High 74-106 [facility] Comment on above: Result Comment: TALIA GEMENT OF PATIENT CARE PER NURSING PROTOCOL Performed By: #### L 501.080 ####[facility] [address] [place], [address] FINGERSTICK GLU 216 mg/dL High 74-106 [facility] Comment on above: Result Comment: TALIA GEMENT OF PATIENT CARE PER NURSING PROTOCOL Performed By: #### L 501.080 ####[facility] [address] [place], [address] FINGERSTICK GLU 288 mg/dL High 74-106 [facility] Comment on above: Result Comment: TALIA GEMENT OF PATIENT CARE PER NURSING PROTOCOL Performed By: #### L 501.080 ####[facility] [address] [place], [address] FINGERSTICK GLU 291 mg/dL High 74-106 [facility] Comment on above: Result Comment: TALIA GEMENT OF PATIENT CARE PER NURSING PROTOCOL Performed By: #### L 501.080 ####[facility] [address] [place], [address] CBC W/Diff, Automatedon 06-05 Absolute Lymph 1.35 X10 3/uL Normal 0.83-4.51 [facility] Comment on above: Performed By: #### L 100.0100, L500.4050, L501.5200 ####[facility] [address] [place], [address] Absolute Neut 3.3 X10 3/uL Normal 2.0-7.7 [facility] Comment on above: Performed By: #### L 100.0100, L500.4050, L501.5200 ####[facility] [address] [place], [address] Basophils/100 WBC (Bld) 0.2 % Normal 0-1 [facility] Comment on above: Performed By: #### L 100.0100, L500.4050, L501.5200 ####[facility] [address] [place], [address] Eosinophils/100 WBC (Bld) 0.2 % Normal 0-5 [facility] Comment on above: Performed By: #### L 100.0100, L500.4050, L501.5200 ####[facility] [address] [place], [address] Erythrocyte distribution width (RBC) [Ratio] 14.5 % Normal 11.6-14.6 [facility] Comment on above: Performed By: #### L 100.0100, L500.4050, L501.5200 ####[facility] [address] [place], [address] Hematocrit (Bld) [Volume fraction] 36.7 % Low 37-47 [facility] Comment on above: Performed By: #### L 100.0100, L500.4050, L501.5200 ####[facility] [address] [place], [address] Hemoglobin (Bld) [Mass/Vol] 12.0 g/dL Normal 12.0-15.0 [facility] Comment on above: Performed By: #### L 100.0100, L500.4050, L501.5200 ####[facility] [address] [place], [address] IG% 0.400 Normal 0.0-0.9 [facility] Comment on above: Result Comment: IG% - Immature Granulocytes (promyelocytes, myelocytes andmetamyelocytes) > 1% indicates that a LEFT SHIFT is Present. Performed By: #### L 100.0100, L500.4050, L501.5200 ####[facility] [address] [place], [address] Lymphocytes/100 WBC (Bld) 26.4 % Normal 19-41 [facility] Comment on above: Performed By: #### L 100.0100, L500.4050, L501.5200 ####[facility] [address] [place], [address] MCH (RBC) [Entitic mass] 27.0 pg Normal 27.0-32.0 [facility] Comment on above: Performed By: #### L 100.0100, L500.4050, L501.5200 ####[facility] [address] [place], [address] MCHC (RBC) [Mass/Vol] 32.7 g/dL Normal 32-36 [facility] Comment on above: Performed By: #### L 100.0100, L500.4050, L501.5200 ####[facility] [address] [place], [address] MCV (RBC) [Entitic vol] 82.5 fL Normal 81-99 [facility] Comment on above: Performed By: #### L 100.0100, L500.4050, L501.5200 ####[facility] [address] [place], [address] Monocytes/100 WBC (Bld) 7.8 % Normal 0-10 [facility] Comment on above: Performed By: #### L 100.0100, L500.4050, L501.5200 ####[facility] [address] [place], [address] Neutrophils/100 WBC (Bld) 65.0 % Normal 47-70 [facility] Comment on above: Performed By: #### L 100.0100, L500.4050, L501.5200 ####[facility] [address] [place], [address] Nucleated RBC (Bld) [#/Vol] 0 10*3/uL Normal 0-5 [facility] Comment on above: Performed By: #### L 100.0100, L500.4050, L501.5200 ####[facility] [address] [place], [address] Platelet mean volume (Bld) [Entitic vol] 9.6 fL Normal 6.2-12.0 [facility] Comment on above: Performed By: #### L 100.0100, L500.4050, L501.5200 ####[facility] [address] [place], [address] Platelets (Bld) [#/Vol] 215 10*3/uL Normal 150-450 [facility] Comment on above: Performed By: #### L 100.0100, L500.4050, L501.5200 ####[facility] [address] [place], [address] RBC (Bld) [#/Vol] 4.45 10*6/uL Normal 4.2-5.4 [facility] Comment on above: Performed By: #### L 100.0100, L500.4050, L501.5200 ####[facility] [address] [place], [address] RDW SD 43.2 fl Normal 35.1-43.9 [facility] Comment on above: Performed By: #### L 100.0100, L500.4050, L501.5200 ####[facility] [address] [place], [address] WBC (Bld) [#/Vol] 5.1 10*3/uL Normal 4.4-11.0 [facility] Comment on above: Performed By: #### L 100.0100, L500.4050, L501.5200 ####[facility] [address] [place], [address] [address] [facility] ilon 06-30-2024 Albumin [Mass/Vol] 2.9 g/dL Low 3.2-5.0 [facility] Comment on above: Performed By: #### L 100.0100, L500.4050, L501.5200 ####[facility] [address] [place], [address] Albumin/Globulin [Mass ratio] 0.7 {ratio} Low 0.9-2.4 [facility] Comment on above: Performed By: #### L 100.0100, L500.4050, L501.5200 ####[facility] [address] [place], [address] ALK P 96 U/L Normal 45-117 [facility] Comment on above: Performed By: #### L 100.0100, L500.4050, L501.5200 ####[facility] [address] [place], [address] ALT [Catalytic activity/Vol] 25 U/L Normal 13-56 [facility] Comment on above: Performed By: #### L 100.0100, L500.4050, L501.5200 ####[facility] [address] [place], [address] AST [Catalytic activity/Vol] 32 U/L Normal 15-37 [facility] Comment on above: Performed By: #### L 100.0100, L500.4050, L501.5200 ####[facility] [address] [place], [address] Bilirubin [Mass/Vol] 0.90 mg/dL Normal 0.20-1.00 [facility] Comment on above: Result Comment: For patients on eltrombopag therapy, use of Dimension Nerinx TBIL is not recommended. Performed By: #### L 100.0100, L500.4050, L501.5200 ####[facility] [address] [place], [address] BUN/CRE 27.0 RATIO High 10-20 [facility] Comment on above: Performed By: #### L 100.0100, L500.4050, L501.5200 ####[facility] [address] [place], [address] CA,Total 9.0 mg/dL Normal 8.5-10.1 [facility] Comment on above: Performed By: #### L 100.0100, L500.4050, L501.5200 ####[facility] [address] [place], [address] Chloride [Moles/Vol] 102 mmol/L Normal 98-107 [facility] Comment on above: Performed By: #### L 100.0100, L500.4050, L501.5200 ####[facility] [address] [place], [address] CO2 [Moles/Vol] 27.0 mmol/L Normal 21.0-32.0 [facility] Comment on above: Performed By: #### L 100.0100, L500.4050, L501.5200 ####[facility] [address] [place], [address] Creatinine [Mass/Vol] 0.81 mg/dL Normal 0.55-1.02 [facility] Comment on above: Result Comment: The validity of the calculated GFR GFRAA in patients over70 years has not been determined. Clinical correlation isessential. Performed By: #### L 100.0100, L500.4050, L501.5200 ####[facility] [address] [place], [address] ECRCL 88.19 ml/min Normal [facility] Comment on above: Performed By: #### L 100.0100, L500.4050, L501.5200 ####[facility] [address] [place], [address] EST GFR - AA 95 mL/min Normal >60 [facility] Comment on above: Result Comment: Afri can Omani GFR Calc Performed By: #### L 100.0100, L500.4050, L501.5200 ####[facility] [address] [place], [address] GAP 5 Normal 5-15 [facility] Comment on above: Performed By: #### L 100.0100, L500.4050, L501.5200 ####[facility] [address] [place], [address] GFR/1.73 sq M.predicted among non-blacks MDRD (S/P/Bld) [Vol rate/Area] 78 mL/min/{1.73_m2} Normal >60 [facility] Comment on above: Result Comment: Non- GFR Calc Performed By: #### L 100.0100, L500.4050, L501.5200 ####[facility] [address] [place], [address] Globulin (S) [Mass/Vol] 4.3 g/dL High 2.2-4.2 [facility] Comment on above: Performed By: #### L 100.0100, L500.4050, L501.5200 ####[facility] [address] [place], [address] Glucose [Mass/Vol] 291 mg/dL High 74-106 [facility] Comment on above: Result Comment: Gluc ose result greater than or equal to 200 mg/dLsuggests DIABETES MELLITUS per A.D.A. criteria. Performed By: #### L 100.0100, L500.4050, L501.5200 ####[facility] [address] [place], [address] Potassium [Moles/Vol] 3.2 mmol/L Low 3.5-5.1 [facility] Comment on above: Performed By: #### L 100.0100, L500.4050, L501.5200 ####[facility] [address] [place], [address] Sodium [Moles/Vol] 134 mmol/L Low 136-145 [facility] Comment on above: Performed By: #### L 100.0100, L500.4050, L501.5200 ####[facility] [address] [place], [address] T PROT 7.2 g/dL Normal 6.4-8.2 [facility] Comment on above: Performed By: #### L 100.0100, L500.4050, L501.5200 ####[facility] [address] [place], [address] Urea nitrogen [Mass/Vol] 22 mg/dL High 7-18 [facility] Comment on above: Performed By: #### L 100.0100, L500.4050, L501.5200 ####[facility] [address] [place], [address] Magnesiumon 06-30-2024 Magnesium [Mass/Vol] 2.1 mg/dL Normal 1.6-2.6 [facility] Comment on above: Performed By: #### L 100.0100, L500.4050, L501.5200 ####[facility] [address] [place], [address] 12 Lead EKGon 06-29-2024 12 Lead EKG Normal [facility] Abdomen/Pelvis W IV Cont ONL Yon 06-29-2024 Abdomen/Pelvis W IV Cont ONLY Normal [facility] Bacteria LM.HPF (Urine sed) [#/Area]Ordered By: Davis Ibarra on 06-29-2024 Urine sediment bacteria count by microscopy (number/high power field) 3+ /hpf None Seen [facility] Bedside Glucoseon 06-29-2024 FINGERSTICK GLU 278 mg/dL High 74-106 [facility] Comment on above: Result Comment: TALIA CHAMBERS OF PATIENT CARE PER NURSING PROTOCOL Performed By: #### L 501.080 ####[facility] [address] [place], [address] Beta HCG ( test) Ql Ordered By: Davis Ibarra on 06-29-2024 Serum beta-hCG test, qualitative Negative [facility] CBC W/Diff, Automatedon 06-05 Absolute Lymph 1.05 X10 3/uL Normal 0.83-4.51 [facility] Comment on above: Performed By: #### L 700.6800, L501.2450, L100.0100, L501.5425, L500.4050 ####[facility] [address] [place], [address] Absolute Neut 4.8 X10 3/uL Normal 2.0-7.7 [facility] Comment on above: Performed By: #### L 700.6800, L501.2450, L100.0100, L501.5425, L500.4050 ####[facility] [address] [place], [address] Basophils/100 WBC (Bld) 0.2 % Normal 0-1 [facility] Comment on above: Performed By: #### L 700.6800, L501.2450, L100.0100, L501.5425, L500.4050 ####[facility] [address] [place], [address] Eosinophils/100 WBC (Bld) 0.5 % Normal 0-5 [facility] Comment on above: Performed By: #### L 700.6800, L501.2450, L100.0100, L501.5425, L500.4050 ####[facility] [address] [place], [address] Erythrocyte distribution width (RBC) [Ratio] 14.3 % Normal 11.6-14.6 [facility] Comment on above: Performed By: #### L 700.6800, L501.2450, L100.0100, L501.5425, L500.4050 ####[facility] [address] [place], [address] Hematocrit (Bld) [Volume fraction] 36.4 % Low 37-47 [facility] Comment on above: Performed By: #### L 700.6800, L501.2450, L100.0100, L501.5425, L500.4050 ####[facility] [address] [place], [address] Hemoglobin (Bld) [Mass/Vol] 12.8 g/dL Normal 12.0-15.0 [facility] Comment on above: Performed By: #### L 700.6800, L501.2450, L100.0100, L501.5425, L500.4050 ####[facility] [address] [place], [address] IG% 0.300 Normal 0.0-0.9 [facility] Comment on above: Result Comment: IG% - Immature Granulocytes (promyelocytes, myelocytes andmetamyelocytes) > 1% indicates that a LEFT SHIFT is Present. Performed By: #### L 700.6800, L501.2450, L100.0100, L501.5425, L500.4050 ####[facility] [address] [place], [address] Lymphocytes/100 WBC (Bld) 16.6 % Low 19-41 [facility] Comment on above: Performed By: #### L 700.6800, L501.2450, L100.0100, L501.5425, L500.4050 ####[facility] [address] [place], [address] MCH (RBC) [Entitic mass] 28.3 pg Normal 27.0-32.0 [facility] Comment on above: Performed By: #### L 700.6800, L501.2450, L100.0100, L501.5425, L500.4050 ####[facility] [address] [place], [address] MCHC (RBC) [Mass/Vol] 35.2 g/dL Normal 32-36 [facility] Comment on above: Performed By: #### L 700.6800, L501.2450, L100.0100, L501.5425, L500.4050 ####[facility] [address] [place], [address] MCV (RBC) [Entitic vol] 80.5 fL Low 81-99 [facility] Comment on above: Performed By: #### L 700.6800, L501.2450, L100.0100, L501.5425, L500.4050 ####[facility] [address] [place], [address] Monocytes/100 WBC (Bld) 6.2 % Normal 0-10 [facility] Comment on above: Performed By: #### L 700.6800, L501.2450, L100.0100, L501.5425, L500.4050 ####[facility] [address] [place], [address] Neutrophils/100 WBC (Bld) 76.2 % High 47-70 [facility] Comment on above: Performed By: #### L 700.6800, L501.2450, L100.0100, L501.5425, L500.4050 ####[facility] [address] [place], [address] Nucleated RBC (Bld) [#/Vol] 0 10*3/uL Normal 0-5 [facility] Comment on above: Performed By: #### L 700.6800, L501.2450, L100.0100, L501.5425, L500.4050 ####[facility] [address] [place], [address] Platelet mean volume (Bld) [Entitic vol] 9.4 fL Normal 6.2-12.0 [facility] Comment on above: Performed By: #### L 700.6800, L501.2450, L100.0100, L501.5425, L500.4050 ####[facility] [address] [place], [address] Platelets (Bld) [#/Vol] 207 10*3/uL Normal 150-450 [facility] Comment on above: Performed By: #### L 700.6800, L501.2450, L100.0100, L501.5425, L500.4050 ####[facility] [address] [place], [address] RBC (Bld) [#/Vol] 4.52 10*6/uL Normal 4.2-5.4 [facility] Comment on above: Performed By: #### L 700.6800, L501.2450, L100.0100, L501.5425, L500.4050 ####[facility] [address] [place], [address] RDW SD 42.1 fl Normal 35.1-43.9 [facility] Comment on above: Performed By: #### L 700.6800, L501.2450, L100.0100, L501.5425, L500.4050 ####[facility] [address] [place], [address] WBC (Bld) [#/Vol] 6.3 10*3/uL Normal 4.4-11.0 [facility] Comment on above: Performed By: #### L 700.6800, L501.2450, L100.0100, L501.5425, L500.4050 ####[facility] [address] [place], [address] Chest 1 View (Portable)on Chest 1 View (Portable) Normal [facility] Clarity (U)Ordered By: Madhav Ibarra on 06-29-2024 Urine clarity Cloudy Clear [facility] Color (U)Ordered By: Davis Ibarra on 06-29-2024 Urine color determination Yellow Yellow [facility] Comprehensive Metabolic Prof ilon 06-29-2024 Albumin [Mass/Vol] 3.3 g/dL Normal 3.2-5.0 [facility] Comment on above: Order Comment: 1Y Performed By: #### L 700.6800, L501.2450, L100.0100, L501.5425, L500.4050 ####[facility] [address] [place], [address] Albumin/Globulin [Mass ratio] 0.8 {ratio} Low 0.9-2.4 [facility] Comment on above: Order Comment: 1Y Performed By: #### L 700.6800, L501.2450, L100.0100, L501.5425, L500.4050 ####[facility] [address] [place], [address] ALK P 113 U/L Normal 45-117 [facility] Comment on above: Order Comment: 1Y Performed By: #### L 700.6800, L501.2450, L100.0100, L501.5425, L500.4050 ####[facility] [address] [place], [address] ALT [Catalytic activity/Vol] 26 U/L Normal 13-56 [facility] Comment on above: Order Comment: 1Y Performed By: #### L 700.6800, L501.2450, L100.0100, L501.5425, L500.4050 ####[facility] [address] [place], [address] AST [Catalytic activity/Vol] 34 U/L Normal 15-37 [facility] Comment on above: Order Comment: 1Y Performed By: #### L 700.6800, L501.2450, L100.0100, L501.5425, L500.4050 ####[facility] [address] [place], [address] Bilirubin [Mass/Vol] 0.80 mg/dL Normal 0.20-1.00 [facility] Comment on above: Order Comment: 1Y Result Comment: For patients on eltrombopag therapy, use of Dimension Nerinx TBIL is not recommended. Performed By: #### L 700.6800, L501.2450, L100.0100, L501.5425, L500.4050 ####[facility] [address] [place], [address] BUN/CRE 27.6 RATIO High 10-20 [facility] Comment on above: Order Comment: 1Y Performed By: #### L 700.6800, L501.2450, L100.0100, L501.5425, L500.4050 ####[facility] [address] [place], [address] CA,Total 9.6 mg/dL Normal 8.5-10.1 [facility] Comment on above: Order Comment: 1Y Performed By: #### L 700.6800, L501.2450, L100.0100, L501.5425, L500.4050 ####[facility] [address] [place], [address] Chloride [Moles/Vol] 98 mmol/L Normal 98-107 [facility] Comment on above: Order Comment: 1Y Performed By: #### L 700.6800, L501.2450, L100.0100, L501.5425, L500.4050 ####[facility] [address] [place], [address] CO2 [Moles/Vol] 25.0 mmol/L Normal 21.0-32.0 [facility] Comment on above: Order Comment: 1Y Performed By: #### L 700.6800, L501.2450, L100.0100, L501.5425, L500.4050 ####[facility] [address] [place], [address] Creatinine [Mass/Vol] 0.91 mg/dL Normal 0.55-1.02 [facility] Comment on above: Order Comment: 1Y Result Comment: The validity of the calculated GFR GFRAA in patients over70 years has not been determined. Clinical correlation isessential. Performed By: #### L 700.6800, L501.2450, L100.0100, L501.5425, L500.4050 ####[facility] [address] [place], [address] ECRCL 79.48 ml/min Normal [facility] Comment on above: Order Comment: 1Y Performed By: #### L 700.6800, L501.2450, L100.0100, L501.5425, L500.4050 ####[facility] [address] [place], [address] EST GFR - AA 84 mL/min Normal >60 [facility] Comment on above: Order Comment: 1Y Result Comment: Afri can [place]mani GFR Calc Performed By: #### L 700.6800, L501.2450, L100.0100, L501.5425, L500.4050 ####[facility] [address] [place], [address] GAP 9 Normal 5-15 [facility] Comment on above: Order Comment: 1Y Performed By: #### L 700.6800, L501.2450, L100.0100, L501.5425, L500.4050 ####[facility] [address] [place], [address] GFR/1.73 sq M.predicted among non-blacks MDRD (S/P/Bld) [Vol rate/Area] 69 mL/min/{1.73_m2} Normal >60 [facility] Comment on above: Order Comment: 1Y Result Comment: Non- GFR Calc Performed By: #### L 700.6800, L501.2450, L100.0100, L501.5425, L500.4050 ####[facility] [address] [place], [address] Globulin (S) [Mass/Vol] 4.4 g/dL High 2.2-4.2 [facility] Comment on above: Order Comment: 1Y Performed By: #### L 700.6800, L501.2450, L100.0100, L501.5425, L500.4050 ####[facility] [address] [place], [address] Glucose [Mass/Vol] 363 mg/dL High 74-106 [facility] Comment on above: Order Comment: 1Y Result Comment: Gluc ose result greater than or equal to 200 mg/dLsuggests DIABETES MELLITUS per A.D.A. criteria. Performed By: #### L 700.6800, L501.2450, L100.0100, L501.5425, L500.4050 ####[facility] [address] [place], [address] Potassium [Moles/Vol] 3.6 mmol/L Normal 3.5-5.1 [facility] Comment on above: Order Comment: 1Y Performed By: #### L 700.6800, L501.2450, L100.0100, L501.5425, L500.4050 ####[facility] [address] [place], [address] Sodium [Moles/Vol] 131 mmol/L Low 136-145 [facility] Comment on above: Order Comment: 1Y Performed By: #### L 700.6800, L501.2450, L100.0100, L501.5425, L500.4050 ####[facility] [address] [place], [address] T PROT 7.7 g/dL Normal 6.4-8.2 [facility] Comment on above: Order Comment: 1Y Performed By: #### L 700.6800, L501.2450, L100.0100, L501.5425, L500.4050 ####[facility] [address] [place], [address] Urea nitrogen [Mass/Vol] 25 mg/dL High 7-18 [facility] Comment on above: Order Comment: 1Y Performed By: #### L 700.6800, L501.2450, L100.0100, L501.5425, L500.4050 ####[facility] [address] [place], [address] Emergency Department Summary on 06-29-2024 Emergency Department Summary Normal [facility] Glucose Ql (U)Ordered By: Matt Ibarra on 06-29-2024 Urine glucose detection 1000 mg/dl High Normal W [facility] H AND P Exam - Hospitaliston 06-29-2024 H&P Exam - Hospitalist Normal Wo [facility] L501.5425on 06-29-2024 TROPONIN-I HS 28 pg/mL Normal 3.0-54.0 [facility] Comment on above: Order Comment: 1Y Result Comment: Plea Note: New Test Units and Gender Specific Reference Ranges. For more information see Policy Stat Procedure Nerinx High Sensitivity Troponin (TNIH) and attachments. Performed By: #### L 700.6800, L501.2450, L100.0100, L501.5425, L500.4050 ####[facility] [address] [place], [place], [address] Leukocyte esterase Test stri p Ql (U)Ordered By: Davis Ibarra on 06-29-2024 Urine leukocyte esterase detection by dipstick 500 /ul High Negative [facility] Lipaseon 06-29-2024 Lipase [Catalytic activity/Vol] 23 U/L Normal 13-75 [facility] Comment on above: Order Comment: 1Y Result Comment: Gege edgar note:LIPASE revised reference range effective 22.New Lipase methodology. Expected to produce lower valuesthan the previous assay method.NEW Reference Range: 13 - 75 U/L Performed By: #### L 700.6800, L501.2450, L100.0100, L501.5425, L500.4050 ####[facility] [address] [place], [place], [address] Lipase measurementOrdered By : Davis Ibarra on 06-29-2024 Lipase measurement 23 U/L 13-75 [facility] Microscopic analysis of urin e for red blood cells (RBC)Ordered By: Davis Ibarra on 06-29-2024 Microscopic analysis of urine for red blood cells (RBC) 0-5 SEEN /hpf 5-10 [facility] Mucus LM Ql (Urine sed)Order ed By: Davis Ibarra on 06-29-2024 Mucus detection in urine sediment by light microscopy 1+ /hpf [facility] Nitrite Test strip Ql (U)Ord ered By: Davis Ibarra on 06-29-2024 Urine nitrite test by dipstick Positive High Negative [facility] ,Serum,hCG Quali.on 06-29-2024 HCG, SERUM QUAL Negative Normal [facility] Comment on above: Performed By: #### L 700.6800, L501.2450, L100.0100, L501.5425, L500.4050 ####[facility] [address] [place], [place], [address] Protein Test strip Ql (U)Ord ered By: Davis Ibarra on 06-29-2024 Urine protein assay by test strip, semi-quantitative 100 mg/dl High Negative [facility] Specific gravity (U) [Rel de nsity]Ordered By: Davis Ibarra on 06-29-2024 Urine specific gravity measurement 1.015 1.002-1.03 0 [facility] Tropinin I.cardiac panel Hig h sensitivity methodOrdered By: Davis Ibarra on 06-29-2024 Serum or plasma cardiac troponin I panel by high sensitivity method 28 pg/mL 3.0-54.0 [facility] Urinalysis, Completeon 06-29 BACTERIA 3+ /hpf Normal None Seen [facility] Comment on above: Order Comment: CLEAN CATCH Performed By: #### L 400.0001 ####[facility] [address] [place], [address] EPI,SQUAMOUS 0-5 SEEN Normal 5-10 [facility] Comment on above: Order Comment: CLEAN CATCH Performed By: #### L 400.0001 ####[facility] [address] [place], [address] Mucus Ql (Urine sed) 1+ /hpf Normal [facility] Comment on above: Order Comment: CLEAN CATCH Performed By: #### L 400.0001 ####[facility] [address] [place], [address] RBC 0-5 SEEN Normal 0-5 [facility] Comment on above: Order Comment: CLEAN CATCH Performed By: #### L 400.0001 ####[facility] [address] [place], [address] WBC 10-25 SEEN Normal 0-5 [facility] Comment on above: Order Comment: CLEAN CATCH Performed By: #### L 400.0001 ####[facility] [address] [place], [address] Urine blood detectionOrdered By: Davis Ibarra on 06-29-2024 Urine blood detection 50 /ul High Negative [facility] Urine cultureOrdered By: [place] on 06-29-2024 Urine culture ESBL Escherichia coli Abnormal [facility] Urine total bilirubin detect ion by test stripOrdered By: Davis Ibarra on 06-29-2024 Urine total bilirubin detection by test strip Negative Negative [facility] Urobilinogen Ql (U)Ordered B y: Davis Ibarra on 06-29-2024 Urine urobilinogen measurement Normal mg/dl Normal [facility] White blood cell countOrdere d By: Davis Ibarra on 06-29-2024 White blood cell count 10-25 SEEN /hpf 0-5 [facility] pH (U)Ordered By: Adrien on 06-29-2024 Urine pH 6.0 5.0 - 8.0 [facility] .Auto Diffon 05-23-2024 Basophil, Absolute 0.1 10 3/mcL Normal 0.0-0.2 [facility] Comment on above: Performed By: #### C BC, MORPH, CMP, TROPHS, ADIFF, GFR, LIP, MDW, ANEU #### [address] [address] Basophils/100 WBC (Bld) 0.8 % Normal 0.0-2.5 [facility] Comment on above: Performed By: #### C BC, MORPH, CMP, TROPHS, ADIFF, GFR, LIP, MDW, ANEU #### [address] [address] Eosinophil, Absolute 0.2 10 3/mcL Normal 0.0-0.7 [facility] Comment on above: Performed By: #### C BC, MORPH, CMP, TROPHS, ADIFF, GFR, LIP, MDW, ANEU #### [address] [address] Eosinophils/100 WBC (Bld) 1.1 % Normal 0.0-7.0 [facility] Comment on above: Performed By: #### C BC, MORPH, CMP, TROPHS, ADIFF, GFR, LIP, MDW, ANEU #### [address] [place] [address] Lymphocyte, Absolute 1.7 10 3/mcL Normal 0.9-4.3 [facility] Comment on above: Performed By: #### C BC, MORPH, CMP, TROPHS, ADIFF, GFR, LIP, MDW, ANEU #### [address] [address] Lymphocytes/100 WBC (Bld) 11.5 % Low 20.0-40.0 [facility] Comment on above: Performed By: #### C BC, MORPH, CMP, TROPHS, ADIFF, GFR, LIP, MDW, ANEU #### [address] [address] Monocyte, Absolute 0.9 10 3/mcL Normal 0.1-1.4 [facility] Comment on above: Performed By: #### C BC, MORPH, CMP, TROPHS, ADIFF, GFR, LIP, MDW, ANEU #### [address] [address] Monocytes/100 WBC (Bld) 6.2 % Normal 2.0-13.0 [facility] Comment on above: Performed By: #### C BC, MORPH, CMP, TROPHS, ADIFF, GFR, LIP, MDW, ANEU #### [address] [address] Neutrophils/100 WBC (Bld) 80.4 % High 50.0-75.0 [facility] Comment on above: Performed By: #### C BC, MORPH, CMP, TROPHS, ADIFF, GFR, LIP, MDW, ANEU #### [address] [address] .GFRon 05-23-2024 GFR Non- 26 ml/min/1.73sqm Normal [facility] Comment on above: Result Comment: GFR Population [...] TROPHS, ADIFF, GFR, LIP, MDW, ANEU #### [address] [address] GFR 31 ml/min/1.73sqm Normal [facility] Comment on above: Result Comment: GFR Population [...] TROPHS, ADIFF, GFR, LIP, MDW, ANEU #### [address] [address] .MDWon 05-23-2024 Monocyte Distribution Width 18.96 Normal 0.00-20.00 [facility] Comment on above: Result Comment: For ED adult patients suspected of sepsis, MDW<=20.0 does not rule out sepsis or risk of sepsis Performed By: #### C BC, MORPH, CMP, TROPHS, ADIFF, GFR, LIP, MDW, ANEU #### [address] [address] .Morphon 05-23-2024 Platelet Estimate Normal Normal [facility] Comment on above: Performed By: #### C BC, MORPH, CMP, TROPHS, ADIFF, GFR, LIP, MDW, ANEU #### [place] [address] .NEUABSon 05-23-2024 Neutrophil, Absolute 11.7 10 3/mcL High 2.3-8.1 [facility] Comment on above: Performed By: #### C BC, MORPH, CMP, TROPHS, ADIFF, GFR, LIP, MDW, ANEU #### [place] [address] CBCon 05-23-2024 Erythrocyte distribution width (RBC) [Ratio] 15.3 % Normal 11.5-15.5 [facility] Comment on above: Performed By: #### C BC, MORPH, CMP, TROPHS, ADIFF, GFR, LIP, MDW, ANEU #### [place] [address] Hematocrit (Bld) [Volume fraction] 35.1 % Normal 34.0-46.0 [facility] Comment on above: Performed By: #### C BC, MORPH, CMP, TROPHS, ADIFF, GFR, LIP, MDW, ANEU #### [place] [address] Hgb 11.3 G/dL Low 12.0-16.0 [facility] Comment on above: Performed By: #### C BC, MORPH, CMP, TROPHS, ADIFF, GFR, LIP, MDW, ANEU #### [place] [address] MCH (RBC) [Entitic mass] 27.2 pg Normal 27.0-33.0 [facility] Comment on above: Performed By: #### C BC, MORPH, CMP, TROPHS, ADIFF, GFR, LIP, MDW, ANEU #### [place] [address] MCHC 32.3 G/dL Normal 32.0-36.0 [facility] Comment on above: Performed By: #### C BC, MORPH, CMP, TROPHS, ADIFF, GFR, LIP, MDW, ANEU #### [address] [address] MCV (RBC) [Entitic vol] 84.2 fL Normal 80.0-99.0 [facility] Comment on above: Performed By: #### C BC, MORPH, CMP, TROPHS, ADIFF, GFR, LIP, MDW, ANEU #### [address] [address] Platelet 229 10 3/mcL Normal 150-450 [facility] Comment on above: Performed By: #### C BC, MORPH, CMP, TROPHS, ADIFF, GFR, LIP, MDW, ANEU #### [place] [address] Platelet mean volume (Bld) [Entitic vol] 7.3 fL Normal 6.6-10.5 [facility] Comment on above: Performed By: #### C BC, MORPH, CMP, TROPHS, ADIFF, GFR, LIP, MDW, ANEU #### [place] [address] RBC 4.17 10 6/mcL Normal 4.10-5.30 [facility] Comment on above: Performed By: #### C BC, MORPH, CMP, TROPHS, ADIFF, GFR, LIP, MDW, ANEU #### [address] [address] WBC 14.5 10 3/mcL High 4.5-10.8 [facility] Comment on above: Performed By: #### C BC, MORPH, CMP, TROPHS, ADIFF, GFR, LIP, MDW, ANEU #### [address] [address] CMPon 05-23-2024 Albumin Level 2.7 G/dL Low 3.5-5.0 [facility] Comment on above: Order Comment: 05/23 20:12:51 EST hemolyzed. EH Performed By: #### C BC, MORPH, CMP, TROPHS, ADIFF, GFR, LIP, MDW, ANEU #### [address] [address] Albumin/Globulin [Mass ratio] 0.7 {ratio} Low 1.1-2.5 [facility] Comment on above: Order Comment: 05/23 20:12:51 EST hemolyzed. EH Performed By: #### C BC, MORPH, CMP, TROPHS, ADIFF, GFR, LIP, MDW, ANEU #### [address] [address] ALP [Catalytic activity/Vol] 128 U/L Normal 40-135 [facility] Comment on above: Order Comment: 05/23 20:12:51 EST hemolyzed. EH Performed By: #### C BC, MORPH, CMP, TROPHS, ADIFF, GFR, LIP, MDW, ANEU #### [address] [address] ALT [Catalytic activity/Vol] 22 U/L Normal 14-59 [facility] Comment on above: Order Comment: 05/23 20:12:51 EST hemolyzed. EH Performed By: #### C BC, MORPH, CMP, TROPHS, ADIFF, GFR, LIP, MDW, ANEU #### [address] [address] AST [Catalytic activity/Vol] 21 U/L Normal 10-40 [facility] Comment on above: Order Comment: 05/23 20:12:51 EST hemolyzed. EH Performed By: #### C BC, MORPH, CMP, TROPHS, ADIFF, GFR, LIP, MDW, ANEU #### [address] [address] Bili Total 0.9 mg/dL Normal 0.2-1.0 [facility] Comment on above: Order Comment: 05/23 20:12:51 EST hemolyzed. EH Result Comment: Use of this assay is not recommended for patients undergoing treatment with eltrombopag due to the potential for falsely elevated results. Performed By: #### C BC, MORPH, CMP, TROPHS, ADIFF, GFR, LIP, MDW, ANEU #### [address] [address] BUN/Creatinine Ratio 20 ratio Normal 7-27 [facility] Comment on above: Order Comment: 05/23 20:12:51 EST hemolyzed. EH Performed By: #### C BC, MORPH, CMP, TROPHS, ADIFF, GFR, LIP, MDW, ANEU #### [address] [address] Calcium [Mass/Vol] 8.7 mg/dL Normal 8.4-10.2 [facility] Comment on above: Order Comment: 05/23 20:12:51 EST hemolyzed. EH Performed By: #### C BC, MORPH, CMP, TROPHS, ADIFF, GFR, LIP, MDW, ANEU #### [address] [address] Chloride [Moles/Vol] 102 mmol/L Normal 98-107 [facility] Comment on above: Order Comment: 05/23 20:12:51 EST hemolyzed. EH Performed By: #### C BC, MORPH, CMP, TROPHS, ADIFF, GFR, LIP, MDW, ANEU #### [address] [address] CO2 [Moles/Vol] 24 mmol/L Normal 22-29 [facility] Comment on above: Order Comment: 05/23 20:12:51 EST hemolyzed. EH Performed By: #### C BC, MORPH, CMP, TROPHS, ADIFF, GFR, LIP, MDW, ANEU #### [address] [address] Creatinine [Mass/Vol] 2.02 mg/dL High 0.55-1.02 [facility] Comment on above: Order Comment: 05/23 20:12:51 EST hemolyzed. EH Result Comment: Test ing performed on Siemens Dimension EXL analyzer using a modified kinetic Breanne technique. Performed By: #### C BC, MORPH, CMP, TROPHS, ADIFF, GFR, LIP, MDW, ANEU #### [address] [address] Electrolyte Balance 8.0 mEq/L Normal 4.0-15.0 [place] Comment on above: Order Comment: 05/23 20:12:51 EST hemolyzed. EH Performed By: #### C BC, MORPH, CMP, TROPHS, ADIFF, GFR, LIP, MDW, ANEU #### [address] [address] Globulin 4.0 G/dL Normal [facility] Comment on above: Order Comment: 05/23 20:12:51 EST hemolyzed. EH Performed By: #### C BC, MORPH, CMP, TROPHS, ADIFF, GFR, LIP, MDW, ANEU #### [address] [address] Glucose [Mass/Vol] 181 mg/dL High 70-105 [facility] Comment on above: Order Comment: 05/23 20:12:51 EST hemolyzed. EH Performed By: #### C BC, MORPH, CMP, TROPHS, ADIFF, GFR, LIP, MDW, ANEU #### [address] [address] Potassium [Moles/Vol] 5.2 mmol/L High 3.5-5.1 [facility] Comment on above: Order Comment: 05/23 20:12:51 EST hemolyzed. EH Performed By: #### C BC, MORPH, CMP, TROPHS, ADIFF, GFR, LIP, MDW, ANEU #### [address] [address] Sodium [Moles/Vol] 134 mmol/L Low 136-145 [facility] Comment on above: Order Comment: 05/23 20:12:51 EST hemolyzed. EH Performed By: #### C BC, MORPH, CMP, TROPHS, ADIFF, GFR, LIP, MDW, ANEU #### [address] [address] Total Protein 6.7 G/dL Normal 6.4-8.2 [facility] Comment on above: Order Comment: 05/23 20:12:51 EST hemolyzed. EH Performed By: #### C BC, MORPH, CMP, TROPHS, ADIFF, GFR, LIP, MDW, ANEU #### [place] [address] [place], [place] [address] Urea nitrogen [Mass/Vol] 40 mg/dL High 7-18 [facility] Comment on above: Order Comment: 05/23 20:12:51 EST hemolyzed. EH Performed By: #### C BC, MORPH, CMP, TROPHS, ADIFF, GFR, LIP, MDW, ANEU #### [place] [id number] [place], [place] [address] LABORATORYOrdered By: SYSTEM SYSTEM on 05-23-2024 Albumin [...] a homogeneous sandwich chemiluminescent immunoassay based on [employer] technology. LABORATORYOrdered By: Yohana Easley on 05-23-2024 Platelets LM Ql (Bld) Normal (05/23/24 8:06 PM) Normal AO Hematology S LIPon 05-23-2024 Lipase Level 56 U/L Normal 16-77 [facility] Comment on above: Performed By: #### C BC, MORPH, CMP, TROPHS, ADIFF, GFR, LIP, MDW, ANEU #### [address] [address] TROPHSon 05-23-2024 High Sensitivity Troponin I 18 ng/L Normal 0-51 [facility] Comment on above: Result Comment: High Sensitive Troponin I Reference Ranges: Female: 0-51 ng/L Male: 0-76 ng/L Testing performed on Dimension EXL using a homogeneous sandwich chemiluminescent immunoassay based on [employer] technology. Performed By: #### C BC, MORPH, CMP, TROPHS, ADIFF, GFR, LIP, MDW, ANEU #### [place] [id number] [place], [place] [address] Basic Metabolic Profile (BMP )on 05-06-2024 BUN Normal 7-18 [facility] Comment on above: Result Comment: Canc elled via OM: Order cancelled - Patient discharged Performed By: #### L 100.0100, L500.2500 ####[facility] [address] [place], [address] BUN/CRE Normal 10-20 [facility] Comment on above: Result Comment: Canc elled via OM: Order cancelled - Patient discharged Performed By: #### L 100.0100, L500.2500 ####[facility] [address] [place], [address] CA,Total Normal 8.5-10.1 [facility] Comment on above: Result Comment: Canc elled via OM: Order cancelled - Patient discharged Performed By: #### L 100.0100, L500.2500 ####[facility] [address] [place], [address] CL Normal 98-107 [facility] Comment on above: Result Comment: Canc elled via OM: Order cancelled - Patient discharged Performed By: #### L 100.0100, L500.2500 ####[facility] [address] [place], [address] CO2 Normal 21.0-32.0 [facility] Comment on above: Result Comment: Canc elled via OM: Order cancelled - Patient discharged Performed By: #### L 100.0100, L500.2500 ####[facility] [address] [place], [address] CREAT,SERUM Normal 0.55-1.02 [facility] Comment on above: Result Comment: Canc elled via OM: Order cancelled - Patient discharged Performed By: #### L 100.0100, L500.2500 ####[facility] [address] [place], [address] EST GFR Normal >60 [facility] Comment on above: Result Comment: Canc elled via OM: Order cancelled - Patient discharged Performed By: #### L 100.0100, L500.2500 ####[facility] [address] [place], [address] EST GFR - AA Normal >60 [facility] Comment on above: Result Comment: Canc elled via OM: Order cancelled - Patient discharged Performed By: #### L 100.0100, L500.2500 ####[facility] [address] [place], [address] GAP Normal 5-15 [facility] Comment on above: Result Comment: Canc elled via OM: Order cancelled - Patient discharged Performed By: #### L 100.0100, L500.2500 ####[facility] [address] [place], [address] GLU Normal 74-106 [facility] Comment on above: Result Comment: Canc elled via OM: Order cancelled - Patient discharged Performed By: #### L 100.0100, L500.2500 ####[facility] [address] [place], [address] Potassium Normal 3.5-5.1 [facility] Comment on above: Result Comment: Canc elled via OM: Order cancelled - Patient discharged Performed By: #### L 100.0100, L500.2500 ####[facility] [address] [place], [address] Basic Metabolic Profile (BMP) Normal 136-145 [facility] Comment on above: Result Comment: Canc elled via OM: Order cancelled - Patient discharged Performed By: #### L 100.0100, L500.2500 ####[facility] [address] [place], [address] CBC W/Diff, Automatedon 12-0 Absolute Neut Normal 2.0-7.7 [facility] Comment on above: Result Comment: Canc elled via OM: Order cancelled - Patient discharged Performed By: #### L 100.0100, L500.2500 ####[facility] [address] [place], [address] HCT Normal 37-47 [facility] Comment on above: Result Comment: Canc elled via OM: Order cancelled - Patient discharged Performed By: #### L 100.0100, L500.2500 ####[facility] [address] [place], [address] HGB Normal 12.0-15.0 [facility] Comment on above: Result Comment: Canc elled via OM: Order cancelled - Patient discharged Performed By: #### L 100.0100, L500.2500 ####[facility] [address] [place], [address] MCH Normal 27.0-32.0 [facility] Comment on above: Result Comment: Canc elled via OM: Order cancelled - Patient discharged Performed By: #### L 100.0100, L500.2500 ####[facility] [address] [place], [address] MCHC Normal 32-36 [facility] Comment on above: Result Comment: Canc elled via OM: Order cancelled - Patient discharged Performed By: #### L 100.0100, L500.2500 ####[facility] [address] [place], [address] MCV Normal 81-99 [facility] Comment on above: Result Comment: Canc elled via OM: Order cancelled - Patient discharged Performed By: #### L 100.0100, L500.2500 ####[facility] [address] [place], [address] NEUT% Normal 47-70 [facility] Comment on above: Result Comment: Canc elled via OM: Order cancelled - Patient discharged Performed By: #### L 100.0100, L500.2500 ####[facility] [address] [place], [address] PLT Normal 150-450 [facility] Comment on above: Result Comment: Canc elled via OM: Order cancelled - Patient discharged Performed By: #### L 100.0100, L500.2500 ####[facility] [address] [place], [address] RBC Normal 4.2-5.4 [facility] Comment on above: Result Comment: Canc elled via OM: Order cancelled - Patient discharged Performed By: #### L 100.0100, L500.2500 ####[facility] [address] [place], [address] RDW CV Normal 11.6-14.6 [facility] Comment on above: Result Comment: Canc elled via OM: Order cancelled - Patient discharged Performed By: #### L 100.0100, L500.2500 ####[facility] [address] [place], [address] RDW SD Normal 35.1-43.9 [facility] Comment on above: Result Comment: Canc elled via OM: Order cancelled - Patient discharged Performed By: #### L 100.0100, L500.2500 ####[facility] [address] [place], [address] WBC Normal 4.4-11.0 [facility] Comment on above: Result Comment: Canc elled via OM: Order cancelled - Patient discharged Performed By: #### L 100.0100, L500.2500 ####[facility] [address] [place], [address] Basic Metabolic Profile (BMP )on 05-05-2024 BUN Normal 7-18 [facility] Comment on above: Result Comment: Canc elled via OM: Order cancelled - Patient discharged Performed By: #### L 100.0100, L500.2500 ####[facility] [address] [place], [address] BUN/CRE Normal 10-20 [facility] Comment on above: Result Comment: Canc elled via OM: Order cancelled - Patient discharged Performed By: #### L 100.0100, L500.2500 ####[facility] [address] [place], [address] CA,Total Normal 8.5-10.1 [facility] Comment on above: Result Comment: Canc elled via OM: Order cancelled - Patient discharged Performed By: #### L 100.0100, L500.2500 ####[facility] [address] [place], [address] CL Normal 98-107 [facility] Comment on above: Result Comment: Canc elled via OM: Order cancelled - Patient discharged Performed By: #### L 100.0100, L500.2500 ####[facility] [address] [place], [address] CO2 Normal 21.0-32.0 [facility] Comment on above: Result Comment: Canc elled via OM: Order cancelled - Patient discharged Performed By: #### L 100.0100, L500.2500 ####[facility] [address] [place], [address] CREAT,SERUM Normal 0.55-1.02 [facility] Comment on above: Result Comment: Canc elled via OM: Order cancelled - Patient discharged Performed By: #### L 100.0100, L500.2500 ####[facility] [address] [place], [address] EST GFR Normal >60 [facility] Comment on above: Result Comment: Canc elled via OM: Order cancelled - Patient discharged Performed By: #### L 100.0100, L500.2500 ####[facility] [address] [place], [address] EST GFR - AA Normal >60 [facility] Comment on above: Result Comment: Canc elled via OM: Order cancelled - Patient discharged Performed By: #### L 100.0100, L500.2500 ####[facility] [address] [place], [address] GAP Normal 5-15 [facility] Comment on above: Result Comment: Canc elled via OM: Order cancelled - Patient discharged Performed By: #### L 100.0100, L500.2500 ####[facility] [address] [place], [address] GLU Normal 74-106 [facility] Comment on above: Result Comment: Canc elled via OM: Order cancelled - Patient discharged Performed By: #### L 100.0100, L500.2500 ####[facility] [address] [place], [address] Potassium Normal 3.5-5.1 [facility] Comment on above: Result Comment: Canc elled via OM: Order cancelled - Patient discharged Performed By: #### L 100.0100, L500.2500 ####[facility] [address] [place], [address] Basic Metabolic Profile (BMP) Normal 136-145 [facility] Comment on above: Result Comment: Canc elled via OM: Order cancelled - Patient discharged Performed By: #### L 100.0100, L500.2500 ####[facility] [address] [place], [address] CBC W/Diff, Automatedon 12-0 Absolute Neut Normal 2.0-7.7 [facility] Comment on above: Result Comment: Canc elled via OM: Order cancelled - Patient discharged Performed By: #### L 100.0100, L500.2500 ####[facility] [address] [place], [address] HCT Normal 37-47 [facility] Comment on above: Result Comment: Canc elled via OM: Order cancelled - Patient discharged Performed By: #### L 100.0100, L500.2500 ####[facility] [address] [place], [address] HGB Normal 12.0-15.0 [facility] Comment on above: Result Comment: Canc elled via OM: Order cancelled - Patient discharged Performed By: #### L 100.0100, L500.2500 ####[facility] [address] [place], [address] MCH Normal 27.0-32.0 [facility] Comment on above: Result Comment: Canc elled via OM: Order cancelled - Patient discharged Performed By: #### L 100.0100, L500.2500 ####[facility] [address] [place], [address] MCHC Normal 32-36 [facility] Comment on above: Result Comment: Canc elled via OM: Order cancelled - Patient discharged Performed By: #### L 100.0100, L500.2500 ####[facility] [address] [place], [address] MCV Normal 81-99 [facility] Comment on above: Result Comment: Canc elled via OM: Order cancelled - Patient discharged Performed By: #### L 100.0100, L500.2500 ####[facility] [address] [place], [address] NEUT% Normal 47-70 [facility] Comment on above: Result Comment: Canc elled via OM: Order cancelled - Patient discharged Performed By: #### L 100.0100, L500.2500 ####[facility] [address] [place], [address] PLT Normal 150-450 [facility] Comment on above: Result Comment: Canc elled via OM: Order cancelled - Patient discharged Performed By: #### L 100.0100, L500.2500 ####[facility] [address] [place], [address] RBC Normal 4.2-5.4 [facility] Comment on above: Result Comment: Canc elled via OM: Order cancelled - Patient discharged Performed By: #### L 100.0100, L500.2500 ####[facility] [address] [place], [address] RDW CV Normal 11.6-14.6 [facility] Comment on above: Result Comment: Canc elled via OM: Order cancelled - Patient discharged Performed By: #### L 100.0100, L500.2500 ####[facility] [address] [place], [address] RDW SD Normal 35.1-43.9 [facility] Comment on above: Result Comment: Canc elled via OM: Order cancelled - Patient discharged Performed By: #### L 100.0100, L500.2500 ####[facility] [address] [place], [address] WBC Normal 4.4-11.0 [facility] Comment on above: Result Comment: Canc elled via OM: Order cancelled - Patient discharged Performed By: #### L 100.0100, L500.2500 ####[facility] [address] [place], [address] Basic Metabolic Profile (BMP )on 05-04-2024 BUN Normal 7-18 [facility] Comment on above: Result Comment: Canc elled via OM: Order cancelled - Patient discharged Performed By: #### L 100.0100, L500.2500 ####[facility] [address] [place], [address] BUN/CRE Normal 10-20 [facility] Comment on above: Result Comment: Canc elled via OM: Order cancelled - Patient discharged Performed By: #### L 100.0100, L500.2500 ####[facility] [address] [place], [address] CA,Total Normal 8.5-10.1 [facility] Comment on above: Result Comment: Canc elled via OM: Order cancelled - Patient discharged Performed By: #### L 100.0100, L500.2500 ####[facility] [address] [place], [address] CL Normal 98-107 [facility] Comment on above: Result Comment: Canc elled via OM: Order cancelled - Patient discharged Performed By: #### L 100.0100, L500.2500 ####[facility] [address] [place], [address] CO2 Normal 21.0-32.0 [facility] Comment on above: Result Comment: Canc elled via OM: Order cancelled - Patient discharged Performed By: #### L 100.0100, L500.2500 ####[facility] [address] [place], [address] CREAT,SERUM Normal 0.55-1.02 [facility] Comment on above: Result Comment: Canc elled via OM: Order cancelled - Patient discharged Performed By: #### L 100.0100, L500.2500 ####[facility] [address] [place], [address] EST GFR Normal >60 [facility] Comment on above: Result Comment: Canc elled via OM: Order cancelled - Patient discharged Performed By: #### L 100.0100, L500.2500 ####[facility] [address] [place], [address] EST GFR - AA Normal >60 [facility] Comment on above: Result Comment: Canc elled via OM: Order cancelled - Patient discharged Performed By: #### L 100.0100, L500.2500 ####[facility] [address] [place], [address] GAP Normal 5-15 [facility] Comment on above: Result Comment: Canc elled via OM: Order cancelled - Patient discharged Performed By: #### L 100.0100, L500.2500 ####[facility] [address] [place], [address] GLU Normal 74-106 [facility] Comment on above: Result Comment: Canc elled via OM: Order cancelled - Patient discharged Performed By: #### L 100.0100, L500.2500 ####[facility] [address] [place], [address] Potassium Normal 3.5-5.1 [facility] Comment on above: Result Comment: Canc elled via OM: Order cancelled - Patient discharged Performed By: #### L 100.0100, L500.2500 ####[facility] [address] [place], [address] Basic Metabolic Profile (BMP) Normal 136-145 [facility] Comment on above: Result Comment: Canc elled via OM: Order cancelled - Patient discharged Performed By: #### L 100.0100, L500.2500 ####[facility] [address] [place], [address] CBC W/Diff, Automatedon 12-0 Absolute Neut Normal 2.0-7.7 [facility] Comment on above: Result Comment: Canc elled via OM: Order cancelled - Patient discharged Performed By: #### L 100.0100, L500.2500 ####[facility] [address] [place], [address] HCT Normal 37-47 [facility] Comment on above: Result Comment: Canc elled via OM: Order cancelled - Patient discharged Performed By: #### L 100.0100, L500.2500 ####[facility] [address] [place], [address] HGB Normal 12.0-15.0 [facility] Comment on above: Result Comment: Canc elled via OM: Order cancelled - Patient discharged Performed By: #### L 100.0100, L500.2500 ####[facility] [address] [place], [address] MCH Normal 27.0-32.0 [facility] Comment on above: Result Comment: Canc elled via OM: Order cancelled - Patient discharged Performed By: #### L 100.0100, L500.2500 ####[facility] [address] [place], [address] MCHC Normal 32-36 [facility] Comment on above: Result Comment: Canc elled via OM: Order cancelled - Patient discharged Performed By: #### L 100.0100, L500.2500 ####[facility] [address] [place], [address] MCV Normal 81-99 [facility] Comment on above: Result Comment: Canc elled via OM: Order cancelled - Patient discharged Performed By: #### L 100.0100, L500.2500 ####[facility] [address] [place], [address] NEUT% Normal 47-70 [facility] Comment on above: Result Comment: Canc elled via OM: Order cancelled - Patient discharged Performed By: #### L 100.0100, L500.2500 ####[facility] [address] [place], [address] PLT Normal 150-450 [facility] Comment on above: Result Comment: Canc elled via OM: Order cancelled - Patient discharged Performed By: #### L 100.0100, L500.2500 ####[facility] [address] [place], [address] RBC Normal 4.2-5.4 [facility] Comment on above: Result Comment: Canc elled via OM: Order cancelled - Patient discharged Performed By: #### L 100.0100, L500.2500 ####[facility] [address] [place], [address] RDW CV Normal 11.6-14.6 [facility] Comment on above: Result Comment: Canc elled via OM: Order cancelled - Patient discharged Performed By: #### L 100.0100, L500.2500 ####[facility] [address] [place], [address] RDW SD Normal 35.1-43.9 [facility] Comment on above: Result Comment: Canc elled via OM: Order cancelled - Patient discharged Performed By: #### L 100.0100, L500.2500 ####[facility] [address] [place], [address] WBC Normal 4.4-11.0 [facility] Comment on above: Result Comment: Canc elled via OM: Order cancelled - Patient discharged Performed By: #### L 100.0100, L500.2500 ####[facility] [address] [place], [address] Basic Metabolic Profile (BMP )on 05-03-2024 BUN Normal 7-18 [facility] Comment on above: Result Comment: Canc elled via OM: Order cancelled - Patient discharged Performed By: #### L 100.0100, L500.2500 ####[facility] [address] [place], [address] BUN/CRE Normal 10-20 [facility] Comment on above: Result Comment: Canc elled via OM: Order cancelled - Patient discharged Performed By: #### L 100.0100, L500.2500 ####[facility] [address] [place], [address] CA,Total Normal 8.5-10.1 [facility] Comment on above: Result Comment: Canc elled via OM: Order cancelled - Patient discharged Performed By: #### L 100.0100, L500.2500 ####[facility] [address] [place], [address] CL Normal 98-107 [facility] Comment on above: Result Comment: Canc elled via OM: Order cancelled - Patient discharged Performed By: #### L 100.0100, L500.2500 ####[facility] [address] [place], [address] CO2 Normal 21.0-32.0 [facility] Comment on above: Result Comment: Canc elled via OM: Order cancelled - Patient discharged Performed By: #### L 100.0100, L500.2500 ####[facility] [address] [place], [address] CREAT,SERUM Normal 0.55-1.02 [facility] Comment on above: Result Comment: Canc elled via OM: Order cancelled - Patient discharged Performed By: #### L 100.0100, L500.2500 ####[facility] [address] [place], [address] EST GFR Normal >60 [facility] Comment on above: Result Comment: Canc elled via OM: Order cancelled - Patient discharged Performed By: #### L 100.0100, L500.2500 ####[facility] [address] [place], [address] EST GFR - AA Normal >60 [facility] Comment on above: Result Comment: Canc elled via OM: Order cancelled - Patient discharged Performed By: #### L 100.0100, L500.2500 ####[facility] [address] [place], [address] GAP Normal 5-15 [facility] Comment on above: Result Comment: Canc elled via OM: Order cancelled - Patient discharged Performed By: #### L 100.0100, L500.2500 ####[facility] [address] [place], [address] GLU Normal 74-106 [facility] Comment on above: Result Comment: Canc elled via OM: Order cancelled - Patient discharged Performed By: #### L 100.0100, L500.2500 ####[facility] [address] [place], [address] Potassium Normal 3.5-5.1 [facility] Comment on above: Result Comment: Canc elled via OM: Order cancelled - Patient discharged Performed By: #### L 100.0100, L500.2500 ####[facility] [address] [place], [address] Basic Metabolic Profile (BMP) Normal 136-145 [facility] Comment on above: Result Comment: Canc elled via OM: Order cancelled - Patient discharged Performed By: #### L 100.0100, L500.2500 ####[facility] [address] [place], [address] CBC W/Diff, Automatedon 11-3 0-2023 Absolute Neut Normal 2.0-7.7 [facility] Comment on above: Result Comment: Canc elled via OM: Order cancelled - Patient discharged Performed By: #### L 100.0100, L500.2500 ####[facility] [address] [place], [address] HCT Normal 37-47 [facility] Comment on above: Result Comment: Canc elled via OM: Order cancelled - Patient discharged Performed By: #### L 100.0100, L500.2500 ####[facility] [address] [place], [address] HGB Normal 12.0-15.0 [facility] Comment on above: Result Comment: Canc elled via OM: Order cancelled - Patient discharged Performed By: #### L 100.0100, L500.2500 ####[facility] [address] [place], [address] MCH Normal 27.0-32.0 [facility] Comment on above: Result Comment: Canc elled via OM: Order cancelled - Patient discharged Performed By: #### L 100.0100, L500.2500 ####[facility] [address] [place], [address] MCHC Normal 32-36 [facility] Comment on above: Result Comment: Canc elled via OM: Order cancelled - Patient discharged Performed By: #### L 100.0100, L500.2500 ####[facility] [address] [place], [address] MCV Normal 81-99 [facility] Comment on above: Result Comment: Canc elled via OM: Order cancelled - Patient discharged Performed By: #### L 100.0100, L500.2500 ####[facility] [address] [place], [address] NEUT% Normal 47-70 [facility] Comment on above: Result Comment: Canc elled via OM: Order cancelled - Patient discharged Performed By: #### L 100.0100, L500.2500 ####[facility] [address] [place], [address] PLT Normal 150-450 [facility] Comment on above: Result Comment: Canc elled via OM: Order cancelled - Patient discharged Performed By: #### L 100.0100, L500.2500 ####[facility] [address] [place], [address] RBC Normal 4.2-5.4 [facility] Comment on above: Result Comment: Canc elled via OM: Order cancelled - Patient discharged Performed By: #### L 100.0100, L500.2500 ####[facility] [address] [place], [address] RDW CV Normal 11.6-14.6 [facility] Comment on above: Result Comment: Canc elled via OM: Order cancelled - Patient discharged Performed By: #### L 100.0100, L500.2500 ####[facility] [address] [place], [address] RDW SD Normal 35.1-43.9 [facility] Comment on above: Result Comment: Canc elled via OM: Order cancelled - Patient discharged Performed By: #### L 100.0100, L500.2500 ####[facility] [address] [place], [address] WBC Normal 4.4-11.0 [facility] Comment on above: Result Comment: Canc elled via OM: Order cancelled - Patient discharged Performed By: #### L 100.0100, L500.2500 ####[facility] [address] [place], [address] Basic Metabolic Profile (BMP )on 05-02-2024 BUN Normal 7-18 [facility] Comment on above: Result Comment: Canc elled via OM: Order cancelled - Patient discharged Performed By: #### L 500.2500, L100.0100 ####[facility] [address] [place], [address] BUN/CRE Normal 10-20 [facility] Comment on above: Result Comment: Canc elled via OM: Order cancelled - Patient discharged Performed By: #### L 500.2500, L100.0100 ####[facility] [address] [place], [address] CA,Total Normal 8.5-10.1 [facility] Comment on above: Result Comment: Canc elled via OM: Order cancelled - Patient discharged Performed By: #### L 500.2500, L100.0100 ####[facility] [address] [place], [address] CL Normal 98-107 [facility] Comment on above: Result Comment: Canc elled via OM: Order cancelled - Patient discharged Performed By: #### L 500.2500, L100.0100 ####[facility] [address] [place], [address] CO2 Normal 21.0-32.0 [facility] Comment on above: Result Comment: Canc elled via OM: Order cancelled - Patient discharged Performed By: #### L 500.2500, L100.0100 ####[facility] [address] [place], [address] CREAT,SERUM Normal 0.55-1.02 [facility] Comment on above: Result Comment: Canc elled via OM: Order cancelled - Patient discharged Performed By: #### L 500.2500, L100.0100 ####[facility] [address] [place], [address] EST GFR Normal >60 [facility] Comment on above: Result Comment: Canc elled via OM: Order cancelled - Patient discharged Performed By: #### L 500.2500, L100.0100 ####[facility] [address] [place], [address] EST GFR - AA Normal >60 [facility] Comment on above: Result Comment: Canc elled via OM: Order cancelled - Patient discharged Performed By: #### L 500.2500, L100.0100 ####[facility] [address] [place], [address] GAP Normal 5-15 [facility] Comment on above: Result Comment: Canc elled via OM: Order cancelled - Patient discharged Performed By: #### L 500.2500, L100.0100 ####[facility] [address] [place], [address] GLU Normal 74-106 [facility] Comment on above: Result Comment: Canc elled via OM: Order cancelled - Patient discharged Performed By: #### L 500.2500, L100.0100 ####[facility] [address] [place], [address] Potassium Normal 3.5-5.1 [facility] Comment on above: Result Comment: Canc elled via OM: Order cancelled - Patient discharged Performed By: #### L 500.2500, L100.0100 ####[facility] [address] [place], [address] Basic Metabolic Profile (BMP) Normal 136-145 [facility] Comment on above: Result Comment: Canc elled via OM: Order cancelled - Patient discharged Performed By: #### L 500.2500, L100.0100 ####[facility] [address] [place], [address] CBC W/Diff, Automatedon 11-2 Absolute Neut Normal 2.0-7.7 [facility] Comment on above: Result Comment: Canc elled via OM: Order cancelled - Patient discharged Performed By: #### L 500.2500, L100.0100 ####[facility] [address] [place], [address] HCT Normal 37-47 [facility] Comment on above: Result Comment: Canc elled via OM: Order cancelled - Patient discharged Performed By: #### L 500.2500, L100.0100 ####[facility] [address] [place], [address] HGB Normal 12.0-15.0 [facility] Comment on above: Result Comment: Canc elled via OM: Order cancelled - Patient discharged Performed By: #### L 500.2500, L100.0100 ####[facility] [address] [place], [address] MCH Normal 27.0-32.0 [facility] Comment on above: Result Comment: Canc elled via OM: Order cancelled - Patient discharged Performed By: #### L 500.2500, L100.0100 ####[facility] [address] [place], [address] MCHC Normal 32-36 [facility] Comment on above: Result Comment: Canc elled via OM: Order cancelled - Patient discharged Performed By: #### L 500.2500, L100.0100 ####[facility] [address] [place], [address] MCV Normal 81-99 [facility] Comment on above: Result Comment: Canc elled via OM: Order cancelled - Patient discharged Performed By: #### L 500.2500, L100.0100 ####[facility] [address] [place], [address] NEUT% Normal 47-70 [facility] Comment on above: Result Comment: Canc elled via OM: Order cancelled - Patient discharged Performed By: #### L 500.2500, L100.0100 ####[facility] [address] [place], [address] PLT Normal 150-450 [facility] Comment on above: Result Comment: Canc elled via OM: Order cancelled - Patient discharged Performed By: #### L 500.2500, L100.0100 ####[facility] [address] [place], [address] RBC Normal 4.2-5.4 [facility] Comment on above: Result Comment: Canc elled via OM: Order cancelled - Patient discharged Performed By: #### L 500.2500, L100.0100 ####[facility] [address] [place], [address] RDW CV Normal 11.6-14.6 [facility] Comment on above: Result Comment: Canc elled via OM: Order cancelled - Patient discharged Performed By: #### L 500.2500, L100.0100 ####[facility] [address] [place], [address] RDW SD Normal 35.1-43.9 [facility] Comment on above: Result Comment: Canc elled via OM: Order cancelled - Patient discharged Performed By: #### L 500.2500, L100.0100 ####[facility] [address] [place], [address] WBC Normal 4.4-11.0 [facility] Comment on above: Result Comment: Canc elled via OM: Order cancelled - Patient discharged Performed By: #### L 500.2500, L100.0100 ####[facility] [address] [place], [address] Basic Metabolic Profile (BMP )on 05-01-2024 BUN Normal 7-18 [facility] Comment on above: Result Comment: Canc elled via OM: Order cancelled - Patient discharged Performed By: #### L 100.0100, L500.2500 ####[facility] [address] [place], [address] BUN/CRE Normal 10-20 [facility] Comment on above: Result Comment: Canc elled via OM: Order cancelled - Patient discharged Performed By: #### L 100.0100, L500.2500 ####[facility] [address] [place], [address] CA,Total Normal 8.5-10.1 [facility] Comment on above: Result Comment: Canc elled via OM: Order cancelled - Patient discharged Performed By: #### L 100.0100, L500.2500 ####[facility] [address] [place], [address] CL Normal 98-107 [facility] Comment on above: Result Comment: Canc elled via OM: Order cancelled - Patient discharged Performed By: #### L 100.0100, L500.2500 ####[facility] [address] [place], [address] CO2 Normal 21.0-32.0 [facility] Comment on above: Result Comment: Canc elled via OM: Order cancelled - Patient discharged Performed By: #### L 100.0100, L500.2500 ####[facility] [address] [place], [address] CREAT,SERUM Normal 0.55-1.02 [facility] Comment on above: Result Comment: Canc elled via OM: Order cancelled - Patient discharged Performed By: #### L 100.0100, L500.2500 ####[facility] [address] [place], [address] EST GFR Normal >60 [facility] Comment on above: Result Comment: Canc elled via OM: Order cancelled - Patient discharged Performed By: #### L 100.0100, L500.2500 ####[facility] [address] [place], [address] EST GFR - AA Normal >60 [facility] Comment on above: Result Comment: Canc elled via OM: Order cancelled - Patient discharged Performed By: #### L 100.0100, L500.2500 ####[facility] [address] [place], [address] GAP Normal 5-15 [facility] Comment on above: Result Comment: Canc elled via OM: Order cancelled - Patient discharged Performed By: #### L 100.0100, L500.2500 ####[facility] [address] [place], [address] GLU Normal 74-106 [facility] Comment on above: Result Comment: Canc elled via OM: Order cancelled - Patient discharged Performed By: #### L 100.0100, L500.2500 ####[facility] [address] [place], [address] Potassium Normal 3.5-5.1 [facility] Comment on above: Result Comment: Canc elled via OM: Order cancelled - Patient discharged Performed By: #### L 100.0100, L500.2500 ####[facility] [address] [place], [address] Basic Metabolic Profile (BMP) Normal 136-145 [facility] Comment on above: Result Comment: Canc elled via OM: Order cancelled - Patient discharged Performed By: #### L 100.0100, L500.2500 ####[facility] [address] [place], [address] CBC W/Diff, Automatedon 11-2 Absolute Neut Normal 2.0-7.7 [facility] Comment on above: Result Comment: Canc elled via OM: Order cancelled - Patient discharged Performed By: #### L 100.0100, L500.2500 ####[facility] [address] [place], [address] HCT Normal 37-47 [facility] Comment on above: Result Comment: Canc elled via OM: Order cancelled - Patient discharged Performed By: #### L 100.0100, L500.2500 ####[facility] [address] [place], [address] HGB Normal 12.0-15.0 [facility] Comment on above: Result Comment: Canc elled via OM: Order cancelled - Patient discharged Performed By: #### L 100.0100, L500.2500 ####[facility] [address] [place], [address] MCH Normal 27.0-32.0 [facility] Comment on above: Result Comment: Canc elled via OM: Order cancelled - Patient discharged Performed By: #### L 100.0100, L500.2500 ####[facility] [address] [place], [address] MCHC Normal 32-36 [facility] Comment on above: Result Comment: Canc elled via OM: Order cancelled - Patient discharged Performed By: #### L 100.0100, L500.2500 ####[facility] [address] [place], [address] MCV Normal 81-99 [facility] Comment on above: Result Comment: Canc elled via OM: Order cancelled - Patient discharged Performed By: #### L 100.0100, L500.2500 ####[facility] [address] [place], [address] NEUT% Normal 47-70 [facility] Comment on above: Result Comment: Canc elled via OM: Order cancelled - Patient discharged Performed By: #### L 100.0100, L500.2500 ####[facility] [address] [place], [address] PLT Normal 150-450 [facility] Comment on above: Result Comment: Canc elled via OM: Order cancelled - Patient discharged Performed By: #### L 100.0100, L500.2500 ####[facility] [address] [place], [address] RBC Normal 4.2-5.4 [facility] Comment on above: Result Comment: Canc elled via OM: Order cancelled - Patient discharged Performed By: #### L 100.0100, L500.2500 ####[facility] [address] [place], [address] RDW CV Normal 11.6-14.6 [facility] Comment on above: Result Comment: Canc elled via OM: Order cancelled - Patient discharged Performed By: #### L 100.0100, L500.2500 ####[facility] [address] [place], [address] RDW SD Normal 35.1-43.9 [facility] Comment on above: Result Comment: Canc elled via OM: Order cancelled - Patient discharged Performed By: #### L 100.0100, L500.2500 ####[facility] [address] [place], [address] WBC Normal 4.4-11.0 [facility] Comment on above: Result Comment: Canc elled via OM: Order cancelled - Patient discharged Performed By: #### L 100.0100, L500.2500 ####[facility] [address] [place], [address] Basic Metabolic Profile (BMP )on 04-30-2024 BUN Normal -18 [facility] Comment on above: Result Comment: Canc elled via OM: Order cancelled - Patient discharged Performed By: #### L 500.2500, L100.0100 ####[facility] [address] [place], [address] BUN/CRE Normal 10-20 [facility] Comment on above: Result Comment: Canc elled via OM: Order cancelled - Patient discharged Performed By: #### L 500.2500, L100.0100 ####[facility] [address] [place], [address] CA,Total Normal 8.5-10.1 [facility] Comment on above: Result Comment: Canc elled via OM: Order cancelled - Patient discharged Performed By: #### L 500.2500, L100.0100 ####[facility] [address] [place], [address] CL Normal 98-107 [facility] Comment on above: Result Comment: Canc elled via OM: Order cancelled - Patient discharged Performed By: #### L 500.2500, L100.0100 ####[facility] [address] [place], [address] CO2 Normal 21.0-32.0 [facility] Comment on above: Result Comment: Canc elled via OM: Order cancelled - Patient discharged Performed By: #### L 500.2500, L100.0100 ####[facility] [address] [place], [address] CREAT,SERUM Normal 0.55-1.02 [facility] Comment on above: Result Comment: Canc elled via OM: Order cancelled - Patient discharged Performed By: #### L 500.2500, L100.0100 ####[facility] [address] [place], [address] EST GFR Normal >60 [facility] Comment on above: Result Comment: Canc elled via OM: Order cancelled - Patient discharged Performed By: #### L 500.2500, L100.0100 ####[facility] [address] [place], [address] EST GFR - AA Normal >60 [facility] Comment on above: Result Comment: Canc elled via OM: Order cancelled - Patient discharged Performed By: #### L 500.2500, L100.0100 ####[facility] [address] [place], [address] GAP Normal 5-15 [facility] Comment on above: Result Comment: Canc elled via OM: Order cancelled - Patient discharged Performed By: #### L 500.2500, L100.0100 ####[facility] [address] [place], [address] GLU Normal 74-106 [facility] Comment on above: Result Comment: Canc elled via OM: Order cancelled - Patient discharged Performed By: #### L 500.2500, L100.0100 ####[facility] [address] [place], [address] Potassium Normal 3.5-5.1 [facility] Comment on above: Result Comment: Canc elled via OM: Order cancelled - Patient discharged Performed By: #### L 500.2500, L100.0100 ####[facility] [address] [place], [address] Basic Metabolic Profile (BMP) Normal 136-145 [facility] [facility] Comment on above: Result Comment: Canc elled via OM: Order cancelled - Patient discharged Performed By: #### L 500.2500, L100.0100 ####[facility] [address] [place], [address] CBC W/Diff, Automatedon 11-2 Absolute Neut Normal 2.0-7.7 [facility] Comment on above: Result Comment: Canc elled via OM: Order cancelled - Patient discharged Performed By: #### L 500.2500, L100.0100 ####[facility] [address] [place], [address] HCT Normal 37-47 [facility] Comment on above: Result Comment: Canc elled via OM: Order cancelled - Patient discharged Performed By: #### L 500.2500, L100.0100 ####[facility] [address] [place], [address] HGB Normal 12.0-15.0 [facility] Comment on above: Result Comment: Canc elled via OM: Order cancelled - Patient discharged Performed By: #### L 500.2500, L100.0100 ####[facility] [address] [place], [address] MCH Normal 27.0-32.0 [facility] Comment on above: Result Comment: Canc elled via OM: Order cancelled - Patient discharged Performed By: #### L 500.2500, L100.0100 ####[facility] [address] [place], [address] MCHC Normal 32-36 [facility] Comment on above: Result Comment: Canc elled via OM: Order cancelled - Patient discharged Performed By: #### L 500.2500, L100.0100 ####[facility] [address] [place], [address] MCV Normal 81-99 [facility] Comment on above: Result Comment: Canc elled via OM: Order cancelled - Patient discharged Performed By: #### L 500.2500, L100.0100 ####[facility] [address] [place], [address] NEUT% Normal 47-70 [facility] Comment on above: Result Comment: Canc elled via OM: Order cancelled - Patient discharged Performed By: #### L 500.2500, L100.0100 ####[facility] [address] [place], [address] PLT Normal 150-450 [facility] Comment on above: Result Comment: Canc elled via OM: Order cancelled - Patient discharged Performed By: #### L 500.2500, L100.0100 ####[facility] [address] [place], [address] RBC Normal 4.2-5.4 [facility] Comment on above: Result Comment: Canc elled via OM: Order cancelled - Patient discharged Performed By: #### L 500.2500, L100.0100 ####[facility] [address] [place], [address] RDW CV Normal 11.6-14.6 [facility] Comment on above: Result Comment: Canc elled via OM: Order cancelled - Patient discharged Performed By: #### L 500.2500, L100.0100 ####[facility] [address] [place], [address] RDW SD Normal 35.1-43.9 [facility] Comment on above: Result Comment: Canc elled via OM: Order cancelled - Patient discharged Performed By: #### L 500.2500, L100.0100 ####[facility] [address] [place], [address] WBC Normal 4.4-11.0 [facility] Comment on above: Result Comment: Canc elled via OM: Order cancelled - Patient discharged Performed By: #### L 500.2500, L100.0100 ####[facility] [address] [place], [address] Absolute neutrophil countOrd ered By: Talisha Boykin on 04-29-2024 Absolute neutrophil count 7.8 X10^3/uL High 2.0-7.7 [facility] Basic Metabolic Profile (BMP )on 04-29-2024 BUN/CRE 31.5 RATIO High 10-20 [facility] Comment on above: Performed By: #### L 100.0100, L500.2500 ####[facility] [address] [place], [address] CA,Total 8.1 mg/dL Low 8.5-10.1 [facility] Comment on above: Performed By: #### L 100.0100, L500.2500 ####[facility] [address] [place], [address] Chloride [Moles/Vol] 104 mmol/L Normal 98-107 [facility] Comment on above: Performed By: #### L 100.0100, L500.2500 ####[facility] [address] [place], [address] CO2 [Moles/Vol] 27.0 mmol/L Normal 21.0-32.0 [facility] Comment on above: Performed By: #### L 100.0100, L500.2500 ####[facility] [address] [place], [address] Creatinine [Mass/Vol] 0.70 mg/dL Normal 0.55-1.02 [facility] Comment on above: Result Comment: The validity of the calculated GFR GFRAA in patients over70 years has not been determined. Clinical correlation isessential. Performed By: #### L 100.0100, L500.2500 ####[facility] [address] [place], [address] ECRCL 91.42 ml/min Normal [facility] Comment on above: Performed By: #### L 100.0100, L500.2500 ####[facility] [address] [place], [address] EST GFR - AA 113 mL/min Normal >60 [facility] Comment on above: Result Comment: Afri can Omani GFR Calc Performed By: #### L 100.0100, L500.2500 ####[facility] [address] [place], [address] GAP 4 Low 5-15 [facility] Comment on above: Performed By: #### L 100.0100, L500.2500 ####[facility] [address] [place], [address] GFR/1.73 sq M.predicted among non-blacks MDRD (S/P/Bld) [Vol rate/Area] 94 mL/min/{1.73_m2} Normal >60 [facility] Comment on above: Result Comment: Non- GFR Calc Performed By: #### L 100.0100, L500.2500 ####[facility] [address] [place], [address] Glucose [Mass/Vol] 231 mg/dL High 74-106 [facility] Comment on above: Result Comment: Gluc ose result greater than or equal to 200 mg/dLsuggests DIABETES MELLITUS per A.D.A. criteria. Performed By: #### L 100.0100, L500.2500 ####[facility] [address] [place], [address] Potassium [Moles/Vol] 4.7 mmol/L Normal 3.5-5.1 [facility] Comment on above: Performed By: #### L 100.0100, L500.2500 ####[facility] [address] [place], [address] Sodium [Moles/Vol] 134 mmol/L Low 136-145 [facility] Comment on above: Performed By: #### L 100.0100, L500.2500 ####[facility] [address] [place], [address] Urea nitrogen [Mass/Vol] 22 mg/dL High 7-18 [facility] Comment on above: Performed By: #### L 100.0100, L500.2500 ####[facility] [address] [place], [address] Basophil percentageOrdered B y: Talishaneville Boykin on 04-29-2024 Basophil percentage 0.5 % 0-1 [facility] Bedside Glucoseon 04-29-2024 FINGERSTICK GLU 277 mg/dL High 74-106 [facility] Comment on above: Result Comment: TALIA CHAMBERS OF PATIENT CARE PER NURSING PROTOCOL Performed By: #### L 501.080 ####[facility] [address] [place], [address] Blood urea nitrogen (BUN)/cr eatinine ratioOrdered By: Talisha Ashutosh on 04-29-2024 Blood urea nitrogen (BUN)/creatinine ratio 31.5 RATIO High 10-20 [facility] CBC W/Diff, Automatedon 04-05 Absolute Lymph 1.93 X10 3/uL Normal 0.83-4.51 [facility] Comment on above: Performed By: #### L 100.0100, L500.2500 ####[facility] [address] [place], [address] Absolute Neut 7.8 X10 3/uL High 2.0-7.7 [facility] Comment on above: Performed By: #### L 100.0100, L500.2500 ####[facility] [address] [place], [address] Basophils/100 WBC (Bld) 0.5 % Normal 0-1 [facility] Comment on above: Performed By: #### L 100.0100, L500.2500 ####[facility] [address] [place], [address] Eosinophils/100 WBC (Bld) 0.8 % Normal 0-5 [facility] Comment on above: Performed By: #### L 100.0100, L500.2500 ####[facility] [address] [place], [address] Erythrocyte distribution width (RBC) [Ratio] 13.6 % Normal 11.6-14.6 [facility] Comment on above: Performed By: #### L 100.0100, L500.2500 ####[facility] [address] [place], [address] Hematocrit (Bld) [Volume fraction] 34.3 % Low 37-47 [facility] Comment on above: Performed By: #### L 100.0100, L500.2500 ####[facility] [address] [place], [address] Hemoglobin (Bld) [Mass/Vol] 11.2 g/dL Low 12.0-15.0 [facility] Comment on above: Performed By: #### L 100.0100, L500.2500 ####[facility] [address] [place], [address] IG% 1.100 High 0.0-0.9 [facility] Comment on above: Result Comment: IG% - Immature Granulocytes (promyelocytes, myelocytes andmetamyelocytes) > 1% indicates that a LEFT SHIFT is Present. Performed By: #### L 100.0100, L500.2500 ####[facility] [address] [place], [address] Lymphocytes/100 WBC (Bld) 18.4 % Low 19-41 [facility] Comment on above: Performed By: #### L 100.0100, L500.2500 ####[facility] [address] [place], [address] MCH (RBC) [Entitic mass] 27.2 pg Normal 27.0-32.0 [facility] Comment on above: Performed By: #### L 100.0100, L500.2500 ####[facility] [address] [place], [address] MCHC (RBC) [Mass/Vol] 32.7 g/dL Normal 32-36 [facility] Comment on above: Performed By: #### L 100.0100, L500.2500 ####[facility] [address] [place], [address] MCV (RBC) [Entitic vol] 83.3 fL Normal 81-99 [facility] Comment on above: Performed By: #### L 100.0100, L500.2500 ####[facility] [address] [place], [address] Monocytes/100 WBC (Bld) 4.8 % Normal 0-10 [facility] Comment on above: Performed By: #### L 100.0100, L500.2500 ####[facility] [address] [place], [address] Neutrophils/100 WBC (Bld) 74.4 % High 47-70 [facility] Comment on above: Performed By: #### L 100.0100, L500.2500 ####[facility] [address] [place], [address] Nucleated RBC (Bld) [#/Vol] 0 10*3/uL Normal 0-5 [facility] Comment on above: Performed By: #### L 100.0100, L500.2500 ####[facility] [address] [place], [address] Platelet mean volume (Bld) [Entitic vol] 9.6 fL Normal 6.2-12.0 [facility] Comment on above: Performed By: #### L 100.0100, L500.2500 ####[facility] [address] [place], [address] Platelets (Bld) [#/Vol] 312 10*3/uL Normal 150-450 [facility] Comment on above: Performed By: #### L 100.0100, L500.2500 ####[facility] [address] [place], [address] RBC (Bld) [#/Vol] 4.12 10*6/uL Low 4.2-5.4 [facility] Comment on above: Performed By: #### L 100.0100, L500.2500 ####[facility] [address] [place], [address] RDW SD 41.0 fl Normal 35.1-43.9 [facility] Comment on above: Performed By: #### L 100.0100, L500.2500 ####[facility] [address] [place], [address] WBC (Bld) [#/Vol] 10.5 10*3/uL Normal 4.4-11.0 [facility] Comment on above: Performed By: #### L 100.0100, L500.2500 ####[facility] [address] [place], [address] Calcium [Mass/Vol]Ordered By : Talisha Boykin on 04-29-2024 Serum or plasma calcium measurement (mass/volume) 8.1 mg/dL Low 8.5-10.1 [facility] Carbon dioxide measurementOr dered By: Talisha Boykin on 04-29-2024 Carbon dioxide measurement 27.0 mmol/L 21.0-32.0 [facility] Chloride measurementOrdered By: Talisha Boykin on 04-29-2024 Chloride measurement 104 mmol/L 98-107 [facility] Creatinine [Mass/Vol]Ordered By: Talisha Boykin on 04-29-2024 Serum or plasma creatinine measurement (mass/volume) 0.70 mg/dL 0.55-1.02 [facility] Eosinophil percentageOrdered By: Talisha Boykin on 04-29-2024 Eosinophil percentage 0.8 % 0-5 [facility] Erythrocyte distribution wid th (RBC) [Entitic vol]Ordered By: Talisha Boykin on 04-29-2024 Erythrocyte distribution width standard deviation 41.0 fl 35.1-43.9 [facility] Erythrocyte distribution wid th (RBC) [Ratio]Ordered By: Talisha Boykin on 04-29-2024 Erythrocyte distribution width ratio 13.6 % 11.6-14.6 [facility] Estimated glomerular filtrat ion rate (GFR) AmericanOrdered By: Talisha Boykin on 04-29-2024 Estimated glomerular filtration rate (GFR) 113 mL/min >60 [facility] Estimation of creatinine sylvain aranceOrdered By: Talisha Boykin on 04-29-2024 Estimation of creatinine clearance 91.42 ml/min [facility] Glomerular filtration rate ( GFR) estimationOrdered By: Talisha Boykin on 04-29-2024 Glomerular filtration rate (GFR) estimation 94 mL/min >60 [facility] Glucose measurementOrdered B y: Talisha Boykin on 04-29-2024 Glucose measurement 231 mg/dL High 74-106 [facility] Glucose measurement at bedsi deOrdered By: Talisha Boykin on 04-29-2024 Glucose measurement at bedside 277 mg/dL High 74-106 [facility] Hematocrit Auto (Bld) [Volum e fraction]Ordered By: Talisha Boykin on 04-29-2024 Automated blood hematocrit (percentage) 34.3 % Low 37-47 [facility] Hemoglobin measurementOrdere d By: Talisha Boykin on 04-29-2024 Hemoglobin measurement 11.2 g/dL Low 12.0-15.0 [facility] Immature granulocytes/100 WB C Auto (Bld)Ordered By: Talisha Boykin on 04-29-2024 Automated immature granulocyte percentage 1.100 % High 0.0-0.9 [facility] Lymphocytes Auto (Unsp spec) [#/Vol]Ordered By: Talisha Boykin on 04-29-2024 Absolute lymphocyte count 1.93 X10^3/uL 0.83-4.51 [facility] Lymphocytes/100 WBC Auto (Un sp spec)Ordered By: Talisha Boykin on 04-29-2024 Automated lymphocyte count as percentage of total leukocytes 18.4 % Low 19-41 [facility] MCV (RBC) [Entitic vol]Order ed By: Talisha Boykin on 04-29-2024 MCV (mean corpuscular volume) determination 83.3 fL 81-99 [facility] Mean corpuscular hemoglobin (MCH) determinationOrdered By: Talisha Boykin on 04-29-2024 Mean corpuscular hemoglobin (MCH) determination 27.2 pg 27.0-32.0 [facility] Mean corpuscular hemoglobin concentration (MCHC) determinationOrdered By: Talisha Boykin on 04-29-2024 Mean corpuscular hemoglobin concentration (MCHC) determination 32.7 g/dL 32-36 [facility] Mean platelet volume determi nationOrdered By: Talisha Boykin on 04-29-2024 Mean platelet volume determination 9.6 fl 6.2-12.0 [facility] Monocyte percentageOrdered B y: Talisha Boykin on 04-29-2024 Monocyte percentage 4.8 % 0-10 [facility] Neutrophil percentageOrdered By: Talisha Boykin on 04-29-2024 Neutrophil percentage 74.4 % High 47-70 [facility] Nucleated red blood cell per centageOrdered By: Talisha Boykin on 04-29-2024 Nucleated red blood cell percentage 0 % 0-5 [facility] Platelet countOrdered By: Na helen Boykin on 04-29-2024 Platelet count 312 K/mm3 150-450 [facility] Potassium measurementOrdered By: Talisha Boykin on 04-29-2024 Potassium measurement 4.7 mmol/L 3.5-5.1 [facility] RBC Auto (Bld) [#/Vol]Ordere d By: Talisha Boykin on 04-29-2024 Automated blood erythrocyte count 4.12 M/mm3 Low 4.2-5.4 [facility] Serum anion gap measurementO rdered By: Talisha Boykin on 04-29-2024 Serum anion gap measurement 4 Low 5-15 [facility] Sodium levelOrdered By: Talisha Boykin on 04-29-2024 Sodium level 134 mmol/L Low 136-145 [facility] Urea nitrogen [Mass/Vol]Orde red By: Talisha Boykin on 04-29-2024 Serum or plasma urea nitrogen measurement (mass/volume) 22 mg/dL High 7-18 [facility] White blood cell (WBC) count Ordered By: Talisha Boykin on 04-29-2024 White blood cell (WBC) count 10.5 K/mm3 4.4-11.0 [facility] Basic Metabolic Profile (BMP )on 04-28-2024 BUN/CRE 28.0 RATIO High 10-20 [facility] Comment on above: Performed By: #### L 100.0100, L500.2500 ####[facility] [address] [place], [address] CA,Total 8.2 mg/dL Low 8.5-10.1 [facility] Comment on above: Performed By: #### L 100.0100, L500.2500 ####[facility] [address] [place], [address] Chloride [Moles/Vol] 102 mmol/L Normal 98-107 [facility] Comment on above: Performed By: #### L 100.0100, L500.2500 ####[facility] [address] [place], [address] CO2 [Moles/Vol] 27.0 mmol/L Normal 21.0-32.0 [facility] Comment on above: Performed By: #### L 100.0100, L500.2500 ####[facility] [address] [place], [address] Creatinine [Mass/Vol] 0.54 mg/dL Low 0.55-1.02 [facility] Comment on above: Result Comment: The validity of the calculated GFR GFRAA in patients over70 years has not been determined. Clinical correlation isessential. Performed By: #### L 100.0100, L500.2500 ####[facility] [address] [place], [address] ECRCL 118.51 ml/min Normal [facility] Comment on above: Performed By: #### L 100.0100, L500.2500 ####[facility] [address] [place], [address] EST GFR - AA 153 mL/min Normal >60 [facility] Comment on above: Result Comment: Afri can Omani GFR Calc Performed By: #### L 100.0100, L500.2500 ####[facility] [address] [place], [address] GAP 4 Low 5-15 [facility] Comment on above: Performed By: #### L 100.0100, L500.2500 ####[facility] [address] [place], [address] GFR/1.73 sq M.predicted among non-blacks MDRD (S/P/Bld) [Vol rate/Area] 127 mL/min/{1.73_m2} Normal >60 [facility] Comment on above: Result Comment: Non- GFR Calc Performed By: #### L 100.0100, L500.2500 ####[facility] [address] [place], [address] Glucose [Mass/Vol] 134 mg/dL High 74-106 [facility] Comment on above: Result Comment: Fast ing Glucose result greater than or equal to 126 mg/dLsuggests DIABETES MELLITUS per A.D.A. criteria. Performed By: #### L 100.0100, L500.2500 ####[facility] [address] [place], [address] Potassium [Moles/Vol] 4.4 mmol/L Normal 3.5-5.1 [facility] Comment on above: Performed By: #### L 100.0100, L500.2500 ####[facility] [address] [place], [address] Sodium [Moles/Vol] 133 mmol/L Low 136-145 [facility] Comment on above: Performed By: #### L 100.0100, L500.2500 ####[facility] [address] [place], [address] Urea nitrogen [Mass/Vol] 15 mg/dL Normal 7-18 [facility] Comment on above: Performed By: #### L 100.0100, L500.2500 ####[facility] [address] [place], [address] Bedside Glucoseon 04-28-2024 FINGERSTICK GLU 171 mg/dL High [facility]106 [facility] Comment on above: Result Comment: TALIA GEMENT OF PATIENT CARE PER NURSING PROTOCOL Performed By: #### L 501.080 ####[facility] [address] [place], [address] FINGERSTICK GLU 158 mg/dL High -106 [facility] Comment on above: Result Comment: TALIA GEMENT OF PATIENT CARE PER NURSING PROTOCOL Performed By: #### L 501.080 ####[facility] [address] [place], [address] FINGERSTICK GLU 147 mg/dL High 74-106 [facility] Comment on above: Result Comment: TALIA GEMENT OF PATIENT CARE PER NURSING PROTOCOL Performed By: #### L 501.080 ####[facility] [address] [place], [address] FINGERSTICK GLU 148 mg/dL High -106 [facility] Comment on above: Result Comment: TALIA GEMENT OF PATIENT CARE PER NURSING PROTOCOL Performed By: #### L 501.080 ####[facility] [address] [place], [address] CBC W/Diff, Automatedon 11-2 5-2023 Absolute Lymph 1.78 X10 3/uL Normal 0.83-4.51 [facility] Comment on above: Performed By: #### L 100.0100, L500.2500 ####[facility] [address] [place], [address] Absolute Neut 5.6 X10 3/uL Normal 2.0-7.7 [facility] Comment on above: Performed By: #### L 100.0100, L500.2500 ####[facility] [address] [place], [address] Basophils/100 WBC (Bld) 0.6 % Normal 0-1 [facility] Comment on above: Performed By: #### L 100.0100, L500.2500 ####[facility] [address] [place], [address] Eosinophils/100 WBC (Bld) 1.4 % Normal 0-5 [facility] Comment on above: Performed By: #### L 100.0100, L500.2500 ####[facility] [address] [place], [address] Erythrocyte distribution width (RBC) [Ratio] 13.3 % Normal 11.6-14.6 [facility] Comment on above: Performed By: #### L 100.0100, L500.2500 ####[facility] [address] [place], [address] Hematocrit (Bld) [Volume fraction] 38.7 % Normal 37-47 [facility] Comment on above: Performed By: #### L 100.0100, L500.2500 ####[facility] [address] [place], [address] Hemoglobin (Bld) [Mass/Vol] 12.4 g/dL Normal 12.0-15.0 [facility] Comment on above: Performed By: #### L 100.0100, L500.2500 ####[facility] [address] [place], [address] IG% 1.500 High 0.0-0.9 [facility] Comment on above: Result Comment: IG% - Immature Granulocytes (promyelocytes, myelocytes andmetamyelocytes) > 1% indicates that a LEFT SHIFT is Present. Performed By: #### L 100.0100, L500.2500 ####[facility] [address] [place], [address] Lymphocytes/100 WBC (Bld) 22.1 % Normal 19-41 [facility] Comment on above: Performed By: #### L 100.0100, L500.2500 ####[facility] [address] [place], [address] MCH (RBC) [Entitic mass] 26.5 pg Low 27.0-32.0 [facility] Comment on above: Performed By: #### L 100.0100, L500.2500 ####[facility] [address] [place], [address] MCHC (RBC) [Mass/Vol] 32.0 g/dL Normal 32-36 [facility] Comment on above: Performed By: #### L 100.0100, L500.2500 ####[facility] [address] [place], [address] MCV (RBC) [Entitic vol] 82.7 fL Normal 81-99 [facility] Comment on above: Performed By: #### L 100.0100, L500.2500 ####[facility] [address] [place], [address] Monocytes/100 WBC (Bld) 5.3 % Normal 0-10 [facility] Comment on above: Performed By: #### L 100.0100, L500.2500 ####[facility] [address] [place], [address] Neutrophils/100 WBC (Bld) 69.1 % Normal 47-70 [facility] Comment on above: Performed By: #### L 100.0100, L500.2500 ####[facility] [address] [place], [address] Nucleated RBC (Bld) [#/Vol] 0 10*3/uL Normal 0-5 [facility] Comment on above: Performed By: #### L 100.0100, L500.2500 ####[facility] [address] [place], [address] Platelet mean volume (Bld) [Entitic vol] 9.6 fL Normal 6.2-12.0 [facility] Comment on above: Performed By: #### L 100.0100, L500.2500 ####[facility] [address] [place], [address] Platelets (Bld) [#/Vol] 273 10*3/uL Normal 150-450 [facility] Comment on above: Performed By: #### L 100.0100, L500.2500 ####[facility] [address] [place], [address] RBC (Bld) [#/Vol] 4.68 10*6/uL Normal 4.2-5.4 [facility] Comment on above: Performed By: #### L 100.0100, L500.2500 ####[facility] [facility] [address] [place], [address] RDW SD 40.3 fl Normal 35.1-43.9 [facility] Comment on above: Performed By: #### L 100.0100, L500.2500 ####[facility] [address] [place], [address] WBC (Bld) [#/Vol] 8.1 10*3/uL Normal 4.4-11.0 [facility] Comment on above: Performed By: #### L 100.0100, L500.2500 ####[facility] [address] [place], [address] Basic Metabolic Profile (BMP )on 04-27-2024 BUN/CRE 25.8 RATIO High 10-20 [facility] Comment on above: Performed By: #### L 500.2500, L100.0100 ####[facility] [address] [place], [address] CA,Total 8.2 mg/dL Low 8.5-10.1 [facility] Comment on above: Performed By: #### L 500.2500, L100.0100 ####[facility] [address] [place], [address] Chloride [Moles/Vol] 98 mmol/L Normal 98-107 [facility] Comment on above: Performed By: #### L 500.2500, L100.0100 ####[facility] [address] [place], [address] CO2 [Moles/Vol] 31.0 mmol/L Normal 21.0-32.0 [facility] Comment on above: Performed By: #### L 500.2500, L100.0100 ####[facility] [address] [place], [address] Creatinine [Mass/Vol] 0.66 mg/dL Normal 0.55-1.02 [facility] Comment on above: Result Comment: The validity of the calculated GFR GFRAA in patients over70 years has not been determined. Clinical correlation isessential. Performed By: #### L 500.2500, L100.0100 ####[facility] [address] [place], [address] ECRCL 96.96 ml/min Normal [facility] Comment on above: Performed By: #### L 500.2500, L100.0100 ####[facility] [address] [place], [address] EST GFR - AA 121 mL/min Normal >60 [facility] Comment on above: Result Comment: Afri can [place] GFR Calc Performed By: #### L 500.2500, L100.0100 ####[facility] [address] [place], [address] GAP 5 Normal 5-15 [facility] Comment on above: Performed By: #### L 500.2500, L100.0100 ####[facility] [address] [place], [address] GFR/1.73 sq M.predicted among non-blacks MDRD (S/P/Bld) [Vol rate/Area] 100 mL/min/{1.73_m2} Normal >60 [facility] Comment on above: Result Comment: Non- GFR Calc Performed By: #### L 500.2500, L100.0100 ####[facility] [address] [place], [address] Glucose [Mass/Vol] 265 mg/dL High 74-106 [facility] Comment on above: Result Comment: Gluc ose result greater than or equal to 200 mg/dLsuggests DIABETES MELLITUS per A.D.A. criteria. Performed By: #### L 500.2500, L100.0100 ####[facility] [address] [place], [address] Potassium [Moles/Vol] 4.1 mmol/L Normal 3.5-5.1 [facility] Comment on above: Performed By: #### L 500.2500, L100.0100 ####[facility] [address] [place], [address] Sodium [Moles/Vol] 134 mmol/L Low 136-145 [facility] Comment on above: Performed By: #### L 500.2500, L100.0100 ####[facility] [address] [place], [address] Urea nitrogen [Mass/Vol] 17 mg/dL Normal 7-18 [facility] Comment on above: Performed By: #### L 500.2500, L100.0100 ####[facility] [address] [place], [address] Bedside Glucoseon 04-27-2024 FINGERSTICK GLU 188 mg/dL High 74-106 [facility] Comment on above: Result Comment: TALIA GEMENT OF PATIENT CARE PER NURSING PROTOCOL Performed By: #### L 501.080 ####[facility] [address] [place], [address] FINGERSTICK GLU 278 mg/dL High [facility]106 [facility] Comment on above: Result Comment: TALIA GEMENT OF PATIENT CARE PER NURSING PROTOCOL Performed By: #### L 501.080 ####[facility] [address] [place], [address] FINGERSTICK GLU 321 mg/dL High -106 [facility] Comment on above: Result Comment: TALIA GEMENT OF PATIENT CARE PER NURSING PROTOCOL Performed By: #### L 501.080 ####[facility] [address] [place], [address] FINGERSTICK GLU 185 mg/dL High -106 [facility] Comment on above: Result Comment: TALIA GEMENT OF PATIENT CARE PER NURSING PROTOCOL Performed By: #### L 501.080 ####[facility] [address] [place], [address] CBC W/Diff, Automatedon 11- Absolute Lymph 1.39 X10 3/uL Normal 0.83-4.51 [facility] Comment on above: Performed By: #### L 500.2500, L100.0100 ####[facility] [address] [place], [address] Absolute Neut 6.8 X10 3/uL Normal 2.0-7.7 [facility] Comment on above: Performed By: #### L 500.2500, L100.0100 ####[facility] [address] [place], [address] Basophils/100 WBC (Bld) 0.7 % Normal 0-1 [facility] Comment on above: Performed By: #### L 500.2500, L100.0100 ####[facility] [address] [place], [address] Eosinophils/100 WBC (Bld) 1.1 % Normal 0-5 [facility] Comment on above: Performed By: #### L 500.2500, L100.0100 ####[facility] [address] [place], [address] Erythrocyte distribution width (RBC) [Ratio] 13.3 % Normal 11.6-14.6 [facility] Comment on above: Performed By: #### L 500.2500, L100.0100 ####[facility] [address] [place], [address] Hematocrit (Bld) [Volume fraction] 38.1 % Normal 37-47 [facility] Comment on above: Performed By: #### L 500.2500, L100.0100 ####[facility] [address] [place], [address] Hemoglobin (Bld) [Mass/Vol] 12.3 g/dL Normal 12.0-15.0 [facility] Comment on above: Performed By: #### L 500.2500, L100.0100 ####[facility] [address] [place], [address] IG% 1.200 High 0.0-0.9 [facility] Comment on above: Result Comment: IG% - Immature Granulocytes (promyelocytes, myelocytes andmetamyelocytes) > 1% indicates that a LEFT SHIFT is Present. Performed By: #### L 500.2500, L100.0100 ####[facility] [address] [place], [address] Lymphocytes/100 WBC (Bld) 15.7 % Low 19-41 [facility] Comment on above: Performed By: #### L 500.2500, L100.0100 ####[facility] [address] [place], [address] MCH (RBC) [Entitic mass] 26.9 pg Low 27.0-32.0 [facility] Comment on above: Performed By: #### L 500.2500, L100.0100 ####[facility] [address] [place], [address] MCHC (RBC) [Mass/Vol] 32.3 g/dL Normal 32-36 [facility] Comment on above: Performed By: #### L 500.2500, L100.0100 ####[facility] [address] [place], [address] MCV (RBC) [Entitic vol] 83.2 fL Normal 81-99 [facility] Comment on above: Performed By: #### L 500.2500, L100.0100 ####[facility] [address] [place], [address] Monocytes/100 WBC (Bld) 4.9 % Normal 0-10 [facility] Comment on above: Performed By: #### L 500.2500, L100.0100 ####[facility] [address] [place], [address] Neutrophils/100 WBC (Bld) 76.4 % High 47-70 [facility] Comment on above: Performed By: #### L 500.2500, L100.0100 ####[facility] [address] [place], [address] Nucleated RBC (Bld) [#/Vol] 0 10*3/uL Normal 0-5 [facility] Comment on above: Performed By: #### L 500.2500, L100.0100 ####[facility] [address] [place], [address] Platelet mean volume (Bld) [Entitic vol] 9.3 fL Normal 6.2-12.0 [facility] Comment on above: Performed By: #### L 500.2500, L100.0100 ####[facility] [address] [place], [address] Platelets (Bld) [#/Vol] 284 10*3/uL Normal 150-450 [facility] Comment on above: Performed By: #### L 500.2500, L100.0100 ####[facility] [address] [place], [address] RBC (Bld) [#/Vol] 4.58 10*6/uL Normal 4.2-5.4 [facility] Comment on above: Performed By: #### L 500.2500, L100.0100 ####[facility] [address] [place], [address] RDW SD 40.4 fl Normal 35.1-43.9 [facility] Comment on above: Performed By: #### L 500.2500, L100.0100 ####[facility] [address] [place], [address] WBC (Bld) [#/Vol] 8.9 10*3/uL Normal 4.4-11.0 [facility] Comment on above: Performed By: #### L 500.2500, L100.0100 ####[facility] [address] [place], [address] ALP [Catalytic activity/Vol] Ordered By: Nicole Trujillo on 04-26-2024 Serum or plasma alkaline phosphatase measurement 95 U/L 45-117 [facility] ALT [Catalytic activity/Vol] Ordered By: Nicole Trujillo on 04-26-2024 Serum or plasma alanine aminotransferase (ALT) measurement 8 U/L Low 13-56 [facility] Albumin [Mass/Vol]Ordered By : Nicole Trujillo on 04-26-2024 Serum or plasma albumin measurement (mass/volume) 1.7 g/dL Low 3.2-5.0 [facility] Albumin to globulin ratioOrd ered By: Nicole Trujillo on 04-26-2024 Albumin to globulin ratio 0.4 RATIO Low 0.9-2.4 [facility] Bedside Glucoseon 04-26-2024 FINGERSTICK GLU 319 mg/dL High 74-106 [facility] Comment on above: Result Comment: TALIA GEMENT OF PATIENT CARE PER NURSING PROTOCOL Performed By: #### L 501.080 ####[facility] [address] [place], [address] FINGERSTICK GLU 280 mg/dL High 74-106 [facility] Comment on above: Result Comment: TALIA GEMENT OF PATIENT CARE PER NURSING PROTOCOL Performed By: #### L 501.080 ####[facility] [address] [place], [address] FINGERSTICK GLU 150 mg/dL High 74-106 [facility] Comment on above: Result Comment: TALIA GEMENT OF PATIENT CARE PER NURSING PROTOCOL Performed By: #### L 501.080 ####[facility] [address] [place], [address] Bilirubin, totalOrdered By: Nicole Trujillo on 04-26-2024 Bilirubin, total 0.50 mg/dL 0.20-1.00 [facility] CBC W/Diff, Automatedon 04-05 Absolute Lymph 1.72 X10 3/uL Normal 0.83-4.51 [facility] Comment on above: Performed By: #### L 100.0100, L500.4050, L501.2300, L501.5200 ####[facility] [address] [place], [address] Absolute Neut 6.8 X10 3/uL Normal 2.0-7.7 [facility] Comment on above: Performed By: #### L 100.0100, L500.4050, L501.2300, L501.5200 ####[facility] [address] [place], [address] Basophils/100 WBC (Bld) 0.4 % Normal 0-1 [facility] Comment on above: Performed By: #### L 100.0100, L500.4050, L501.2300, L501.5200 ####[facility] [address] [place], [address] Eosinophils/100 WBC (Bld) 1.2 % Normal 0-5 [facility] Comment on above: Performed By: #### L 100.0100, L500.4050, L501.2300, L501.5200 ####[facility] [address] [place], [address] Erythrocyte distribution width (RBC) [Ratio] 13.2 % Normal 11.6-14.6 [facility] Comment on above: Performed By: #### L 100.0100, L500.4050, L501.2300, L501.5200 ####[facility] [address] [place], [address] Hematocrit (Bld) [Volume fraction] 33.4 % Low 37-47 [facility] Comment on above: Performed By: #### L 100.0100, L500.4050, L501.2300, L501.5200 ####[facility] [address] [place], [address] Hemoglobin (Bld) [Mass/Vol] 11.3 g/dL Low 12.0-15.0 [facility] Comment on above: Performed By: #### L 100.0100, L500.4050, L501.2300, L501.5200 ####[facility] [address] [place], [address] IG% 1.200 High 0.0-0.9 [facility] Comment on above: Result Comment: IG% - Immature Granulocytes (promyelocytes, myelocytes andmetamyelocytes) > 1% indicates that a LEFT SHIFT is Present. Performed By: #### L 100.0100, L500.4050, L501.2300, L501.5200 ####[facility] [address] [place], [address] Lymphocytes/100 WBC (Bld) 18.4 % Low 19-41 [facility] Comment on above: Performed By: #### L 100.0100, L500.4050, L501.2300, L501.5200 ####[facility] [address] [place], [address] MCH (RBC) [Entitic mass] 27.6 pg Normal 27.0-32.0 [facility] Comment on above: Performed By: #### L 100.0100, L500.4050, L501.2300, L501.5200 ####[facility] [address] [place], [address] MCHC (RBC) [Mass/Vol] 33.8 g/dL Normal 32-36 [facility] Comment on above: Performed By: #### L 100.0100, L500.4050, L501.2300, L501.5200 ####[facility] [address] [place], [address] MCV (RBC) [Entitic vol] 81.7 fL Normal 81-99 [facility] Comment on above: Performed By: #### L 100.0100, L500.4050, L501.2300, L501.5200 ####[facility] [address] [place], [address] Monocytes/100 WBC (Bld) 5.7 % Normal 0-10 [facility] Comment on above: Performed By: #### L 100.0100, L500.4050, L501.2300, L501.5200 ####[facility] [address] [place], [address] Neutrophils/100 WBC (Bld) 73.1 % High 47-70 [facility] Comment on above: Performed By: #### L 100.0100, L500.4050, L501.2300, L501.5200 ####[facility] [address] [place], [address] Nucleated RBC (Bld) [#/Vol] 0 10*3/uL Normal 0-5 [facility] Comment on above: Performed By: #### L 100.0100, L500.4050, L501.2300, L501.5200 ####[facility] [address] [place], [address] Platelet mean volume (Bld) [Entitic vol] 9.3 fL Normal 6.2-12.0 [facility] Comment on above: Performed By: #### L 100.0100, L500.4050, L501.2300, L501.5200 ####[facility] [address] [place], [address] Platelets (Bld) [#/Vol] 234 10*3/uL Normal 150-450 [facility] Comment on above: Performed By: #### L 100.0100, L500.4050, L501.2300, L501.5200 ####[facility] [address] [place], [address] RBC (Bld) [#/Vol] 4.09 10*6/uL Low 4.2-5.4 [facility] Comment on above: Performed By: #### L 100.0100, L500.4050, L501.2300, L501.5200 ####[facility] [address] [place], [address] RDW SD 39.2 fl Normal 35.1-43.9 [facility] Comment on above: Performed By: #### L 100.0100, L500.4050, L501.2300, L501.5200 ####[facility] [address] [place], [address] WBC (Bld) [#/Vol] 9.3 10*3/uL Normal 4.4-11.0 [facility] Comment on above: Performed By: #### L 100.0100, L500.4050, L501.2300, L501.5200 ####[facility] [address] [place], [address] Comprehensive Metabolic Prof [facility] 04-26-2024 Albumin [Mass/Vol] 1.7 g/dL Low 3.2-5.0 [facility] Comment on above: Performed By: #### L 100.0100, L500.4050, L501.2300, L501.5200 ####[facility] [address] [place], [address] Albumin/Globulin [Mass ratio] 0.4 {ratio} Low 0.9-2.4 [facility] Comment on above: Performed By: #### L 100.0100, L500.4050, L501.2300, L501.5200 ####[facility] [address] [place], [address] ALK P 95 U/L Normal 45-117 [facility] Comment on above: Performed By: #### L 100.0100, L500.4050, L501.2300, L501.5200 ####[facility] [address] [place], [address] ALT [Catalytic activity/Vol] 8 U/L Low 13-56 [facility] Comment on above: Performed By: #### L 100.0100, L500.4050, L501.2300, L501.5200 ####[facility] [address] [place], [address] AST [Catalytic activity/Vol] 13 U/L Low 15-37 [facility] Comment on above: Performed By: #### L 100.0100, L500.4050, L501.2300, L501.5200 ####[facility] [address] [place], [address] Bilirubin [Mass/Vol] 0.50 mg/dL Normal 0.20-1.00 [facility] Comment on above: Result Comment: For patients on eltrombopag therapy, use of Dimension Nerinx TBIL is not recommended. Performed By: #### L 100.0100, L500.4050, L501.2300, L501.5200 ####[facility] [address] [place], [address] BUN/CRE 23.5 RATIO High 10-20 [facility] Comment on above: Performed By: #### L 100.0100, L500.4050, L501.2300, L501.5200 ####[facility] [address] [place], [address] CA,Total 8.0 mg/dL Low 8.5-10.1 [facility] Comment on above: Performed By: #### L 100.0100, L500.4050, L501.2300, L501.5200 ####[facility] [address] [place], [address] Chloride [Moles/Vol] 98 mmol/L Normal 98-107 [facility] Comment on above: Performed By: #### L 100.0100, L500.4050, L501.2300, L501.5200 ####[facility] [address] [place], [address] CO2 [Moles/Vol] 30.0 mmol/L Normal 21.0-32.0 [facility] Comment on above: Performed By: #### L 100.0100, L500.4050, L501.2300, L501.5200 ####[facility] [address] [place], [address] Creatinine [Mass/Vol] 0.81 mg/dL Normal 0.55-1.02 [facility] Comment on above: Result Comment: The validity of the calculated GFR GFRAA in patients over70 years has not been determined. Clinical correlation isessential. Performed By: #### L 100.0100, L500.4050, L501.2300, L501.5200 ####[facility] [address] [place], [address] ECRCL 79.01 ml/min Normal [facility] Comment on above: Performed By: #### L 100.0100, L500.4050, L501.2300, L501.5200 ####[facility] [address] [place], [address] EST GFR - AA 96 mL/min Normal >60 [facility] Comment on above: Result Comment: Afri can [place] GFR Calc Performed By: #### L 100.0100, L500.4050, L501.2300, L501.5200 ####[facility] [address] [place], [address] GAP 4 Low 5-15 [facility] Comment on above: Performed By: #### L 100.0100, L500.4050, L501.2300, L501.5200 ####[facility] [address] [place], [address] GFR/1.73 sq M.predicted among non-blacks MDRD (S/P/Bld) [Vol rate/Area] 79 mL/min/{1.73_m2} Normal >60 [facility] Comment on above: Result Comment: Non- GFR Calc Performed By: #### L 100.0100, L500.4050, L501.2300, L501.5200 ####[facility] [address] [place], [address] Globulin (S) [Mass/Vol] 4.7 g/dL High 2.2-4.2 [facility] Comment on above: Performed By: #### L 100.0100, L500.4050, L501.2300, L501.5200 ####[facility] [address] [place], [address] Glucose [Mass/Vol] 146 mg/dL High 74-106 [facility] Comment on above: Result Comment: Fast ing Glucose result greater than or equal to 126 mg/dLsuggests DIABETES MELLITUS per A.D.A. criteria. Performed By: #### L 100.0100, L500.4050, L501.2300, L501.5200 ####[facility] [address] [place], [address] Potassium [Moles/Vol] 3.2 mmol/L Low 3.5-5.1 [facility] Comment on above: Performed By: #### L 100.0100, L500.4050, L501.2300, L501.5200 ####[facility] [address] [place], [address] Sodium [Moles/Vol] 132 mmol/L Low 136-145 [facility] Comment on above: Performed By: #### L 100.0100, L500.4050, L501.2300, L501.5200 ####[facility] [address] [place], [address] T PROT 6.4 g/dL Normal 6.4-8.2 [facility] Comment on above: Performed By: #### L 100.0100, L500.4050, L501.2300, L501.5200 ####[facility] [address] [place], [address] Urea nitrogen [Mass/Vol] 19 mg/dL High 7-18 [facility] Comment on above: Performed By: #### L 100.0100, L500.4050, L501.2300, L501.5200 ####[facility] [address] [place], [address] M R Staph Aureus DNA by PCRo n 04-26-2024 MRSA DNA ASSAY Negative Normal Negative [facility] Comment on above: Performed By: #### L 8200.1000 ####[facility] [address] [place], [address] MRSA Wound DNA by PCRon 04-05 MRSA DNA ASSAY Negative Normal Negative [facility] Comment on above: Order Comment: left breast Performed By: #### L 8200.1075 ####[facility] [address] [place], [address] SA DNA ASSAY Negative Normal Negative [facility] Comment on above: Order Comment: left breast Performed By: #### L 8200.1075 ####[facility] [address] [place], [address] MRSA detection PCROrdered By : Nicole Trujillo on 04-26-2024 MRSA detection PCR Negative Negative [facility] Magnesiumon 04-26-2024 Magnesium [Mass/Vol] 2.2 mg/dL Normal 1.6-2.6 [facility] Comment on above: Performed By: #### L 100.0100, L500.4050, L501.2300, L501.5200 ####[facility] [address] [place], [address] Magnesium measurementOrdered By: Nicole Trujillo on 04-26-2024 Magnesium measurement 2.2 mg/dL 1.6-2.6 [facility] No Panel InformationOrdered By: Nicole Trujillo on 04-26-2024 13 U/L Low 15-37 [facility] Phosphoruson 04-26-2024 Phosphate [Mass/Vol] 3.2 mg/dL Normal 2.5-4.9 [facility] Comment on above: Performed By: #### L 100.0100, L500.4050, L501.2300, L501.5200 ####[facility] [address] [place], [address] Phosphorus measurementOrdere d By: Nicole Trujillo on 04-26-2024 Phosphorus measurement 3.2 mg/dL 2.5-4.9 [facility] Serum globulin measurementOr dered By: Nicole Trujillo on 04-26-2024 Serum globulin measurement 4.7 g/dL High 2.2-4.2 [facility] Total proteinOrdered By: Jenae Trujillo on 04-26-2024 Total protein 6.4 g/dL 6.4-8.2 [facility] Abdomen/Pelvis W IV Cont ONL Yon 04-25-2024 Abdomen/Pelvis W IV Cont ONLY Normal [facility] Bedside Glucoseon 04-25-2024 FINGERSTICK GLU 341 mg/dL High 74-106 [facility] Comment on above: Result Comment: TALIA GEMENT OF PATIENT CARE PER NURSING PROTOCOL Performed By: #### L 501.080 ####[facility] [address] [place], [address] FINGERSTICK GLU 336 mg/dL High 74-106 [facility] Comment on above: Result Comment: TALIA GEMENT OF PATIENT CARE PER NURSING PROTOCOL Performed By: #### L 501.080 ####[facility] [address] [place], [address] CBC W/Diff, Automatedon 04-05 Absolute Lymph 0.97 X10 3/uL Normal 0.83-4.51 [facility] Comment on above: Performed By: #### L 100.0100, L501.2450, L503.6005, L500.4050 ####[facility] [address] [place], [address] Absolute Neut 10.8 X10 3/uL High 2.0-7.7 [facility] Comment on above: Performed By: #### L 100.0100, L501.2450, L503.6005, L500.4050 ####[facility] [address] [place], [address] Basophils/100 WBC (Bld) 0.4 % Normal 0-1 [facility] Comment on above: Performed By: #### L 100.0100, L501.2450, L503.6005, L500.4050 ####[facility] [address] [place], [address] Eosinophils/100 WBC (Bld) 0.5 % Normal 0-5 [facility] Comment on above: Performed By: #### L 100.0100, L501.2450, L503.6005, L500.4050 ####[facility] [address] [place], [address] Erythrocyte distribution width (RBC) [Ratio] 13.0 % Normal 11.6-14.6 [facility] [facility] Comment on above: Performed By: #### L 100.0100, L501.2450, L503.6005, L500.4050 ####[facility] [address] [place], [address] Hematocrit (Bld) [Volume fraction] 39.4 % Normal 37-47 [facility] Comment on above: Performed By: #### L 100.0100, L501.2450, L503.6005, L500.4050 ####[facility] [address] [place], [address] Hemoglobin (Bld) [Mass/Vol] 13.3 g/dL Normal 12.0-15.0 [facility] Comment on above: Performed By: #### L 100.0100, L501.2450, L503.6005, L500.4050 ####[facility] [address] [place], [address] IG% 1.100 High 0.0-0.9 [facility] Comment on above: Result Comment: IG% - Immature Granulocytes (promyelocytes, myelocytes andmetamyelocytes) > 1% indicates that a LEFT SHIFT is Present. Performed By: #### L 100.0100, L501.2450, L503.6005, L500.4050 ####[facility] [address] [place], [address] Lymphocytes/100 WBC (Bld) 7.7 % Low 19-41 [facility] Comment on above: Performed By: #### L 100.0100, L501.2450, L503.6005, L500.4050 ####[facility] [address] [place], [address] MCH (RBC) [Entitic mass] 27.0 pg Normal 27.0-32.0 [facility] Comment on above: Performed By: #### L 100.0100, L501.2450, L503.6005, L500.4050 ####[facility] [address] [place], [address] MCHC (RBC) [Mass/Vol] 33.8 g/dL Normal 32-36 [facility] Comment on above: Performed By: #### L 100.0100, L501.2450, L503.6005, L500.4050 ####[facility] [address] [place], [address] MCV (RBC) [Entitic vol] 79.9 fL Low 81-99 [facility] Comment on above: Performed By: #### L 100.0100, L501.2450, L503.6005, L500.4050 ####[facility] [address] [place], [address] Monocytes/100 WBC (Bld) 4.2 % Normal 0-10 [facility] Comment on above: Performed By: #### L 100.0100, L501.2450, L503.6005, L500.4050 ####[facility] [address] [place], [address] Neutrophils/100 WBC (Bld) 86.1 % High 47-70 [facility] Comment on above: Performed By: #### L 100.0100, L501.2450, L503.6005, L500.4050 ####[facility] [address] [place], [address] Nucleated RBC (Bld) [#/Vol] 0 10*3/uL Normal 0-5 [facility] Comment on above: Performed By: #### L 100.0100, L501.2450, L503.6005, L500.4050 ####[facility] [address] [place], [address] Platelet mean volume (Bld) [Entitic vol] 9.4 fL Normal 6.2-12.0 [facility] Comment on above: Performed By: #### L 100.0100, L501.2450, L503.6005, L500.4050 ####[facility] [address] [place], [address] Platelets (Bld) [#/Vol] 259 10*3/uL Normal 150-450 [facility] Comment on above: Performed By: #### L 100.0100, L501.2450, L503.6005, L500.4050 ####[facility] [address] [place], [address] RBC (Bld) [#/Vol] 4.93 10*6/uL Normal 4.2-5.4 [facility] Comment on above: Performed By: #### L 100.0100, L501.2450, L503.6005, L500.4050 ####[facility] [address] [place], [address] RDW SD 37.1 fl Normal 35.1-43.9 [facility] Comment on above: Performed By: #### L 100.0100, L501.2450, L503.6005, L500.4050 ####[facility] [address] [place], [address] WBC (Bld) [#/Vol] 12.6 10*3/uL High 4.4-11.0 [facility] Comment on above: Performed By: #### L 100.0100, L501.2450, L503.6005, L500.4050 ####[facility] [address] [place], [address] Comprehensive Metabolic Prof [facility] 04-25-2024 Albumin [Mass/Vol] 2.0 g/dL Low 3.2-5.0 [facility] Comment on above: Performed By: #### L 100.0100, L501.2450, L503.6005, L500.4050 ####[facility] [address] [place], [address] Albumin/Globulin [Mass ratio] 0.4 {ratio} Low 0.9-2.4 [facility] Comment on above: Performed By: #### L 100.0100, L501.2450, L503.6005, L500.4050 ####[facility] [address] [place], [address] ALK P 124 U/L High 45-117 [facility] Comment on above: Performed By: #### L 100.0100, L501.2450, L503.6005, L500.4050 ####[facility] [address] [place], [address] ALT [Catalytic activity/Vol] 9 U/L Low 13-56 [facility] Comment on above: Performed By: #### L 100.0100, L501.2450, L503.6005, L500.4050 ####[facility] [address] [place], [address] AST [Catalytic activity/Vol] 17 U/L Normal 15-37 [facility] Comment on above: Performed By: #### L 100.0100, L501.2450, L503.6005, L500.4050 ####[facility] [address] [place], [address] Bilirubin [Mass/Vol] 0.80 mg/dL Normal 0.20-1.00 [facility] Comment on above: Result Comment: For patients on eltrombopag therapy, use of Dimension Nerinx TBIL is not recommended. Performed By: #### L 100.0100, L501.2450, L503.6005, L500.4050 ####[facility] [address] [place], [address] BUN/CRE 29.4 RATIO High 10-20 [facility] Comment on above: Performed By: #### L 100.0100, L501.2450, L503.6005, L500.4050 ####[facility] [address] [place], [address] CA,Total 8.7 mg/dL Normal 8.5-10.1 [facility] Comment on above: Performed By: #### L 100.0100, L501.2450, L503.6005, L500.4050 ####[facility] [address] [place], [address] Chloride [Moles/Vol] 95 mmol/L Low 98-107 [facility] Comment on above: Performed By: #### L 100.0100, L501.2450, L503.6005, L500.4050 ####[facility] [address] [place], [address] CO2 [Moles/Vol] 29.0 mmol/L Normal 21.0-32.0 [facility] Comment on above: Performed By: #### L 100.0100, L501.2450, L503.6005, L500.4050 ####[facility] [address] [place], [address] Creatinine [Mass/Vol] 0.65 mg/dL Normal 0.55-1.02 [facility] Comment on above: Result Comment: The validity of the calculated GFR GFRAA in patients over70 years has not been determined. Clinical correlation isessential. Performed By: #### L 100.0100, L501.2450, L503.6005, L500.4050 ####[facility] [address] [place], [address] ECRCL 109.13 ml/min Normal [facility] Comment on above: Performed By: #### L 100.0100, L501.2450, L503.6005, L500.4050 ####[facility] [address] [place], [address] EST GFR - AA 123 mL/min Normal >60 [facility] Comment on above: Result Comment: Afri can [place] GFR Calc Performed By: #### L 100.0100, L501.2450, L503.6005, L500.4050 ####[facility] [address] [place], [address] GAP 6 Normal 5-15 [facility] Comment on above: Performed By: #### L 100.0100, L501.2450, L503.6005, L500.4050 ####[facility] [address] [place], [address] GFR/1.73 sq M.predicted among non-blacks MDRD (S/P/Bld) [Vol rate/Area] 102 mL/min/{1.73_m2} Normal >60 [facility] Comment on above: Result Comment: Non- GFR Calc Performed By: #### L 100.0100, L501.2450, L503.6005, L500.4050 ####[facility] [address] [place], [address] Globulin (S) [Mass/Vol] 5.7 g/dL High 2.2-4.2 [facility] Comment on above: Performed By: #### L 100.0100, L501.2450, L503.6005, L500.4050 ####[facility] [address] [place], [address] Glucose [Mass/Vol] 359 mg/dL High 74-106 [facility] Comment on above: Result Comment: Gluc ose result greater than or equal to 200 mg/dLsuggests DIABETES MELLITUS per A.D.A. criteria. Performed By: #### L 100.0100, L501.2450, L503.6005, L500.4050 ####[facility] [address] [place], [address] Potassium [Moles/Vol] 3.5 mmol/L Normal 3.5-5.1 [facility] Comment on above: Performed By: #### L 100.0100, L501.2450, L503.6005, L500.4050 ####[facility] [address] [place], [address] Sodium [Moles/Vol] 130 mmol/L Low 136-145 [facility] Comment on above: Performed By: #### L 100.0100, L501.2450, L503.6005, L500.4050 ####[facility] [address] [place], [address] T PROT 7.7 g/dL Normal 6.4-8.2 [facility] Comment on above: Performed By: #### L 100.0100, L501.2450, L503.6005, L500.4050 ####[facility] [address] [place], [address] Urea nitrogen [Mass/Vol] 19 mg/dL High 7-18 [facility] Comment on above: Performed By: #### L 100.0100, L501.2450, L503.6005, L500.4050 ####[facility] [address] [place], [address] Emergency Department Summary on 04-25-2024 Emergency Department Summary Normal [facility] H AND P Exam - [facility] 04-25-2024 H&P Exam - Hospitalist Normal [facility] Lactic Acidon 04-25-2024 Lactate [Moles/Vol] 3.0 mmol/L Invalid Interpretation Code 0.4-1.9 [facility] Comment on above: Result Comment: Crit ical Result(s) Called at: 18:55:46 04/25/2024 by:Eneida Elizalde. Results read back by same. Performed By: #### L 503.6005 ####[facility] [address] [place], [address] Lactate [Moles/Vol] 2.0 mmol/L Normal 0.4-1.9 [facility] Comment on above: Order Comment: Y Result Comment: Crit ical Result(s) Called at: 14:43:32 04/25/2024 by:Eneida Short. Results read back by same. Performed By: #### L 100.0100, L501.2450, L503.6005, L500.4050 ####[facility] [address] [place], [address] Lactic acid measurementOrder ed By: Jeremiah Rawls on 04-25-2024 Lactic acid measurement 3.0 mmol/L High 0.4-2.0 [facility] Lipaseon 04-25-2024 Lipase [Catalytic activity/Vol] 22 U/L Normal 13-75 [facility] Comment on above: Result Comment: Gege edgar note:LIPASE revised reference range effective 22.New Lipase methodology. Expected to produce lower valuesthan the previous assay method.NEW Reference Range: 13 - 75 U/L Performed By: #### L 100.0100, L501.2450, L503.6005, L500.4050 ####[facility] [address] [place], [address] Lipase measurementOrdered By : Jeremiah Rawls on 04-25-2024 Lipase measurement 22 U/L 13- [facility] Telephone ([place]) ----- TRETNON JACKSON ([id number]) 1970 [facility] Date Time Provider Department 02/06/24 GERDA RIVERO During your visit today, we recorded the following information about you: Allergies As of Date: 02/06/2024 Noted Allergy Reaction LATEX 01/18/2011 9 - Itching Comments: Red and dry cracking skin Date Reviewed: 10/19/2023 Reviewed by: Jose Antonio Singh APRN.GAME DEVELOPER - Fully Assessed Reason for Visit: Appointment [...] all medications X 4 days per her gluapo-38-6-2017. Problem List As Of Date 02/06/2024 Noted [...] Coronary artery (more content not included)... Normal [facility] 11-20-2023 [facility] ----- TRENTON JACKSON ([id number]) 1970 [facility] Date Time Provider Department 11/20/23 STEPHANIE WHITING [facility] During your visit today, we recorded the following information about you: Stephanie De La Cruz 11/20/2023 8:48 AM Signed The patient was discharged from [facility] 10-20-23 with an order to schedule with the Heart Failure Clinic. The Clinic reached out to the patient with no response. Therefore, this is considered a deferral of the Clinic's services at this time. Allergies As of Date: 11/20/2023 Noted Allergy Reaction LATEX 01/18/2011 9 - Itching Comments: Red and dry cracking skin Date Reviewed: 10/19/2023 Reviewed by: Jose Antonio Singh APRN.GAME DEVELOPER - Fully Assessed Reason for Visit: Orders [911] Cmt: [facility] deferral Prescriptions as of 11/20/2023 [...] all medications X 4 days per her xjctfa-10-4-2017. Problem List As Of Date 11/20/2023 Noted [...] Normal [facility] CNPNon 10-22-2023 [facility] Telephone ([facility]) ----- TRENTON JACKSON ([id number]) 1970 [facility] Date Time Provider Department 10/22/23 STEPHANIE WHITING [facility] During your visit today, we recorded the following information about you: Stephanie De La Cruz 10/22/2023 9:37 AM Signed Patient was discharged from [facility] 10-20-23 with an order to schedule with the Heart Failure Clinic. However, the patient was then immediately admitted to a long-term facility. A letter was mailed to the patient asking them to contact the Clinic upon discharge from the facility. Allergies As of Date: 10/22/2023 Noted Allergy Reaction LATEX 01/18/2011 9 - Itching Comments: Red and dry cracking skin Date Reviewed: 10/19/2023 Reviewed by: Jose Antonio Singh APRN.[facility] - Fully Assessed Reason for Visit: Orders [681] Cmt: [facility] order contact/SNF ltr Prescriptions as of 10/22/2023 [...] all medications X 4 days per her pxsyrr-45-6-2017. Problem List As Of Date 10/22/2023 Noted [...] Anion gap [Moles/Vol] 12 mmol/L Normal 9-18 [facility] Comment on above: Order Comment: Speci men Type: BLOOD SPECIMEN Ordering Facility: [facility] Address: [address] [place] [address] Performed By: #### 2 4321-2 #### [facility] CLIA [id number] [address] [place] [address] [place] Calcium [Mass/Vol] 8.9 mg/dL Normal 8.5-10.2 [facility] Comment on above: Order Comment: Speci men Type: BLOOD SPECIMEN Ordering Facility: [facility] Address: [address] [place] [address] Performed By: #### 2 4321-2 #### [facility] CLIA [id number] [address] [place] [address] [place] Chloride [Moles/Vol] 103 mmol/L Normal 97-105 [facility] Comment on above: Order Comment: Speci men Type: BLOOD SPECIMEN Ordering Facility: [facility] Address: [address] [place] [address] Performed By: #### 2 4321-2 #### [facility] CLIA [id number] [address] [place] CO2 [Moles/Vol] 22 mmol/L Normal 22-30 [facility] Comment on above: Order Comment: Speci men Type: BLOOD SPECIMEN Ordering Facility: [facility] Address: [address] [place] [address] Performed By: #### 2 4321-2 #### [facility] CLIA [id number] [address] [place] [address] [place] Creatinine [Mass/Vol] 1.07 mg/dL High 0.58-0.96 [facility] Comment on above: Order Comment: Speci men Type: BLOOD SPECIMEN Ordering Facility: [facility] Address: [address] [place] [address] Performed By: #### 2 4321-2 #### [facility] CLIA [id number] [address] [place] [address] [place] Creatinine and Glomerular filtration rate.predicted panel (S/P/Bld) 63 mL/min/1.73m??? Normal >=60 [facility] Comment on above: Order Comment: Radha tony Type: BLOOD SPECIMEN Ordering Facility: [facility] Address: [address] [place] [address] Result Comment: Crissy mated Glomerular Filtration Rate [...] GFR. Performed By: #### 2 4321-2 #### [facility] CLIA [id number] [address] [place] [address] [place] Glucose [Mass/Vol] 104 mg/dL High 74-99 [facility] Comment on above: Order Comment: Radha tony Type: BLOOD SPECIMEN Ordering Facility: [facility] Address: [address] [place] [address] Result Comment: The [place] Diabetes Association (ADA) provides guidance for cutoff [...] Standards of Medical Care in Diabetes 2016, [place] Diabetes Association. Diabetes Care. 2016.39(Suppl 1). Performed By: #### 2 4321-2 #### [facility] CLIA [id number] [address] [place] [address] [place] Potassium [Moles/Vol] 4.2 mmol/L Normal 3.7-5.1 [facility] Comment on above: Order Comment: Radha tony Type: BLOOD SPECIMEN Ordering Facility: [facility] Address: [address] [place] [address] Performed By: #### 2 4321-2 #### [facility] CLIA [id number] [address] Sodium [Moles/Vol] 137 mmol/L Normal 136-144 [facility] Comment on above: Order Comment: Speci men Type: BLOOD SPECIMEN Ordering Facility: [facility] Address: [address] [place] [address] Performed By: #### 2 4321-2 #### [facility] CLIA [id number] [address] Urea nitrogen [Mass/Vol] 49 mg/dL High 7-21 [facility] Comment on above: Order Comment: Speci men Type: BLOOD SPECIMEN Ordering Facility: [facility] Address: [address] [place] [address] Performed By: #### 2 4321-2 #### [facility] CLIA [id number] [address] OF [facility] CNDSon 10-19-2023 [facility] HNO ID: [id number] Author: TATIANA RAMSAY MD Service: Hospital Medicine Author Type: Nurse Practitioner Type: Discharge Summary Filed: 10/22/2023 09:18 Note Text: ----- Attestation signed by Tatiana Ramsay MD at 10/22/2023 9:18 AM Attending Note I have reviewed the PA/MOSAIC TECHNICIAN note. Additions or changes: None Signature: Tatiana [...] internal medicine. Schedule an appointment by calling [phone]. You can also be seen at [facility] [place]. Information for this clinic has been attached to your discharge instructions. -Follow-up with Dr. May with orthopedics in 4 weeks -Follow up with the heart failure clinic. AN APPOINTMENT REQUEST HAS BEEN MADE FOR YOU. IF YOU HAVE NOT HEARD FROM THE SCHEDULERS BY SUNDAY PLEASE CALL [phone] TO CONFIRM YOUR APPOINTMENT DATE/TIME -Please work [...] Health Care CONSULTon 10-19-2023 CONSULT HNO ID: [id number] Author: LATRICIA HERNANDEZ MD Service: Clinical Cardiology [...] CONSULT PROGon 10-19-2023 CONSULT PROG HNO ID: [id number] Author: DARLYN CANTOR APRN.GAME DEVELOPER Service: Wound/Ostomy Author Type: Nurse Practitioner Type: Consult Progress Note Filed: 10/19/2023 11:27 Note Text: WOUND CARE SERVICE CONSULT SERVICER TRAVEL TRAILERS NOTE SERVICE DATE: 10/19/2023 SERVICE TIME: 849 [...] who is seen today with Emma Parikh, Wound/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 department floorperson, and presented to hospital with complaints of [...] Anterior;Proximal;Right;U pper Leg Routine Active Darlyn Cantor, SERVICER TRAVEL TRAILERS.GAME DEVELOPER - Sp (more content not included)... Normal [facility] ECHOon 10-19-2023 Echocardiography Echocardiography Rep ort: Transthoracic Echo [facility] Date of service: 10/19/2023 10:23:25 AM CLINIC / [facility] Ordering physician: JOSE ANTONIO SINGH Indication: [...] * * Final * * * CC [employer] : [id number] Normal [facility] ED NOTEon 10-19-2023 ED NOTE HNO ID: [id number] Author: JIMY CHING RN Service: Emergency Medicine Author Type: Registered Nurse Type: ED Notes Filed: 10/19/2023 00:29 Note Text: . Normal [facility] ED NOTE HNO ID: [id number] Author: JIMY CHING RN Service: Emergency Medicine Author Type: Registered Nurse Type: ED Notes Filed: 10/19/2023 00:30 Note Text: Report to floor attempted RN not available to take report Normal [facility] Hepatic function 2000 panelo n 10-19-2023 Albumin [Mass/Vol] 3.4 g/dL Low 3.9-4.9 [facility] Comment on above: Order Comment: Speci men Type: BLOOD SPECIMEN Ordering Facility: [facility] Address: [address] [place] [address] Performed By: #### 2 4321-2 #### [facility] CLIA [id number] [address] [place] [address] [place] ALP [Catalytic activity/Vol] 134 U/L High 34-123 [facility] Comment on above: Order Comment: Speci men Type: BLOOD SPECIMEN Ordering Facility: [facility] Address: [address] [place] [address] Performed By: #### 2 4321-2 #### [facility] CLIA [id number] [address] OF [facility] ALT With P-5'-P [Catalytic activity/Vol] 17 U/L Normal 7-38 [facility] Comment on above: Order Comment: Speci men Type: BLOOD SPECIMEN Ordering Facility: [facility] Address: [address] [place] [address] Performed By: #### 2 4321-2 #### [facility] CLIA [id number] [address] AST With P-5'-P [Catalytic activity/Vol] 19 U/L Normal 13-35 [facility] Comment on above: Order Comment: Speci men Type: BLOOD SPECIMEN Ordering Facility: [facility] Address: [address] [place] [address] Performed By: #### 2 4321-2 #### [facility] CLIA [id number] [address] Bilirubin [Mass/Vol] 0.5 mg/dL Normal 0.2-1.3 [facility] Comment on above: Order Comment: Speci men Type: BLOOD SPECIMEN Ordering Facility: [facility] Address: [address] [place] [address] Performed By: #### 2 4321-2 #### [facility] CLIA [id number] [address] Bilirubin.conjugated [Mass/Vol] mg/dL Normal <0.2 [facility] Comment on above: Order Comment: Speci men Type: BLOOD SPECIMEN Ordering Facility: [facility] Address: [address] [place] [address] Performed By: #### 2 4321-2 #### [facility] CLIA [id number] [address] [place] [address] [place] Protein [Mass/Vol] 6.7 g/dL Normal 6.3-8.0 [facility] Comment on above: Order Comment: Speci men Type: BLOOD SPECIMEN Ordering Facility: [facility] Address: [address] [place] [address] Performed By: #### 2 4321-2 #### [facility] CLIA [id number] [address] [place] CBC W Auto Differential pane l (Bld)on 10-18-2023 Basophils (Bld) [#/Vol] 0.05 10*3/uL Normal <0.11 [facility] Comment on above: Order Comment: Speci men Type: BLOOD SPECIMEN Ordering Facility: [facility] Address: [address] [place] [address] Performed By: #### 2 4321-2 #### [facility] CLIA [id number] [address] [place] Basophils/100 WBC (Bld) 0.6 % Normal [facility] Comment on above: Order Comment: Speci men Type: BLOOD SPECIMEN Ordering Facility: [facility] Address: [address] [place] [address] Performed By: #### 2 4321-2 #### [facility] CLIA [id number] [address] Differential cell count method Nom (Bld) Auto Normal [facility] Comment on above: Order Comment: Speci men Type: BLOOD SPECIMEN Ordering Facility: [facility] Address: [address] [place] [address] Performed By: #### 2 4321-2 #### [facility] CLIA [id number] [address] [place] [address] [place] Eosinophils (Bld) [#/Vol] 0.10 10*3/uL Normal <0.46 [facility] Comment on above: Order Comment: Speci men Type: BLOOD SPECIMEN [facility] [facility] Address: [address] [place] [address] Performed By: #### 2 4321-2 #### [facility] CLIA [id number] [address] [place] Eosinophils/100 WBC (Bld) 1.2 % Normal [facility] Comment on above: Order Comment: Speci men Type: BLOOD SPECIMEN Ordering Facility: [facility] Address: [address] [place] [address] Performed By: #### 2 4321-2 #### [facility] CLIA [id number] [address] [place] Erythrocyte distribution width (RBC) [Ratio] 16.2 % High 11.5-15.0 [facility] Comment on above: Order Comment: Speci men Type: BLOOD SPECIMEN Ordering Facility: [facility] Address: [address] [place] [address] Performed By: #### 2 4321-2 #### [facility] CLIA [id number] [address] [place] Hematocrit (Bld) [Volume fraction] 36.5 % Normal 36.0-46.0 [facility] Comment on above: Order Comment: Speci men Type: BLOOD SPECIMEN Ordering Facility: [facility] Address: [address] [place] [address] Performed By: #### 2 4321-2 #### [facility] CLIA [id number] [address] [place] Hemoglobin (Bld) [Mass/Vol] 11.6 g/dL Normal 11.5-15.5 [facility] Comment on above: Order Comment: Speci men Type: BLOOD SPECIMEN Ordering Facility: [facility] Address: [address] [place] [address] Performed By: #### 2 4321-2 #### [facility] CLIA [id number] [address] [place] Immature granulocytes (Bld) [#/Vol] 0.03 10*3/uL Normal <0.10 [facility] Comment on above: Order Comment: Speci men Type: BLOOD SPECIMEN Ordering Facility: [facility] Address: [address] [place] [address] Performed By: #### 2 4321-2 #### [facility] CLIA [id number] [address] Immature granulocytes/100 WBC (Bld) 0.4 % Normal [facility] Comment on above: Order Comment: Speci men Type: BLOOD SPECIMEN Ordering Facility: [facility] Address: [address] [place] [address] Performed By: #### 2 4321-2 #### [facility] CLIA [id number] [address] [place] Lymphocytes (Bld) [#/Vol] 1.82 10*3/uL Normal 1.00-4.00 [facility] Comment on above: Order Comment: Speci men Type: BLOOD SPECIMEN Ordering Facility: [facility] Address: [address] [place] [address] Performed By: #### 2 1-2 #### [facility] CLIA [id number] [address] Lymphocytes/100 WBC (Bld) 22.3 % Normal [facility] Comment on above: Order Comment: Speci men Type: BLOOD SPECIMEN Ordering Facility: [facility] Address: [address] [place] [address] Performed By: #### 2 4321-2 #### [facility] CLIA [id number] [address] [place] MCH (RBC) [Entitic mass] 27.3 pg Normal 26.0-34.0 [facility] Comment on above: Order Comment: Speci men Type: BLOOD SPECIMEN Ordering Facility: [facility] Address: [address] [place] [address] Performed By: #### 2 4321-2 #### [facility] CLIA [id number] [address] [place] MCHC (RBC) [Mass/Vol] 31.8 g/dL Normal 30.5-36.0 [facility] Comment on above: Order Comment: Speci men Type: BLOOD SPECIMEN Ordering Facility: [facility] Address: [address] [place] [address] Performed By: #### 2 4321-2 #### [facility] CLIA [id number] [address] [place] MCV (RBC) [Entitic vol] 85.9 fL Normal 80.0-100.0 [facility] Comment on above: Order Comment: Speci men Type: BLOOD SPECIMEN Ordering Facility: [facility] Address: [address] [place] [address] Performed By: #### 2 4321-2 #### [facility] CLIA [id number] [address] [place] Monocytes (Bld) [#/Vol] 0.78 10*3/uL Normal <0.87 [facility] Comment on above: Order Comment: Speci men Type: BLOOD SPECIMEN Ordering Facility: [facility] Address: [address] [place] [address] Performed By: #### 2 1-2 #### [facility] CLIA [id number] [address] [place] Monocytes/100 WBC (Bld) 9.6 % Normal [facility] Comment on above: Order Comment: Speci men Type: BLOOD SPECIMEN Ordering Facility: [facility] Address: [address] [place] [address] Performed By: #### 2 4321-2 #### [facility] CLIA [id number] [address] [place] Neutrophils (Bld) [#/Vol] 5.38 10*3/uL Normal 1.45-7.50 [facility] Comment on above: Order Comment: Speci men Type: BLOOD SPECIMEN Ordering Facility: [facility] Address: [address] [place] [address] Performed By: #### 2 4321-2 #### [facility] CLIA [id number] [address] [place] Neutrophils/100 WBC (Bld) 65.9 % Normal [facility] Comment on above: Order Comment: Speci men Type: BLOOD SPECIMEN Ordering Facility: [facility] Address: [address] [place] [address] Performed By: #### 2 4321-2 #### [facility] CLIA [id number] [address] Nucleated RBC (Bld) [#/Vol] 10*3/uL Normal <0.01 [facility] Comment on above: Order Comment: Speci men Type: BLOOD SPECIMEN Ordering Facility: [facility] Address: [address] [place] [address] Performed By: #### 2 1-2 #### [facility] CLIA [id number] [address] Nucleated RBC/100 WBC (Bld) [Ratio] 0.0 /100 WBC Normal [facility] Comment on above: Order Comment: Speci men Type: BLOOD SPECIMEN Ordering Facility: [facility] Address: [address] [place] [address] Performed By: #### 2 1-2 #### [facility] CLIA [id number] [address] [place] Platelet mean volume (Bld) [Entitic vol] 9.1 fL Normal 9.0-12.7 [facility] Comment on above: Order Comment: Speci men Type: BLOOD SPECIMEN Ordering Facility: [facility] Address: [address] [place] [address] Performed By: #### 2 1-2 #### [facility] CLIA [id number] [address] [place] Platelets (Bld) [#/Vol] 242 10*3/uL Normal 150-400 [facility] Comment on above: Order Comment: Speci men Type: BLOOD SPECIMEN Ordering Facility: [facility] Address: [address] [place] [address] Performed By: #### 2 1-2 #### [facility] CLIA [id number] [address] OF [facility] RBC (Bld) [#/Vol] 4.25 10*6/uL Normal 3.90-5.20 [facility] Comment on above: Order Comment: Speci men Type: BLOOD SPECIMEN Ordering Facility: [facility] Address: [address] [place] [address] Performed By: #### 2 4321-2 #### [facility] CLIA [id number] [address] OF [facility] WBC (Bld) [#/Vol] 8.16 10*3/uL Normal 3.70-11.00 [facility] Comment on above: Order Comment: Speckam tony Type: BLOOD SPECIMEN Ordering Facility: [facility] Address: [address] [place] [address] Performed By: #### 2 4321-2 #### [facility] CLIA [id number] [address] OF [facility] ----- TRENTON JACKSON ([id number]) 1970 [facility] Date Time Provider [facility] During your visit today, we recorded the following information about you: Tenzin Customer Service And Sales Consultant Ethel Shah 10/18/2023 11:46 AM Signed Returned Sara's call from [facility] regarding [place] - last nurse we spoke to (Bryant), they were to take patient to [facility] and follow up with local ortho md. Called and spoke to Cindi - when order was given to Bryant in regards to giving an antibiotic AND taking to [facility] ED for surgical consult if no improvement - there was no follow through on that end. The snf physician did give an antibiotic 09/27/23 - 10/04/23 and nothing was done after that until Cindi saw [place] on 10/15/23 AND sent her to [facility] ED. The ED gave her pain medication [...] May for review Thank you Ethel Dave Customer Service And Sales Consultant [facility] [place] Ethel Shah 10/18/2023 3:03 PM Signed Spoke to Cindi - she is going to [facility] to arrange for transport. She did state that sometimes they can picking supervisor in 15 minutes but sometimes it can take hours. Cindi does have direct phone # and knows I am in office until 530pm should she need to reach the office, after that to call the main office phone #. Also verified [facility] ED address. Thank you Ethel Dave [place] [employer] Allergies As of Date: 10/18/2023 Noted [...] all medications X 4 days per her wkplxy-68-9-2017. Problem List As Of Date 10/18/2023 Noted Resolved Abdominal pain, other specified site [R10.9] 10/23/2012 Essential hypertension [I10] 02/20/2017 Pericardial cyst [Q24.8] 02/20/2017 Pericardial effusion [I31.39] 02/20/2017 Depression [F32.A] 02/20/2017 Anxiety [F41.9] 02/20/2017 [employer] (more content not included)... Normal [facility] CONSULTon 10-18-2023 CONSULT HNO ID: [id number] Author: DIYA MAY MD Service: Orthopaedic Surgery [...] HPI: 53 year old female presented to [facility] due to concern for an infection [...] Speci men Type: BLOOD SPECIMEN Ordering Facility: [facility] Address: [address] [place] [address] Performed By: #### 2 4323-8, 50220-5 #### [facility] CLIA [id number] 1 [place] [id number] [place] ALP [Catalytic activity/Vol] 135 U/L High 34-123 [facility] Comment on above: Order Comment: Speci men Type: BLOOD SPECIMEN Ordering Facility: [facility] Address: [address] [place] [address] Performed By: #### 2 8, #### [facility] CLIA [id number] [address] ALT With P-5'-P [Catalytic activity/Vol] Normal [facility] Comment on above: Order Comment: Speci men Type: BLOOD SPECIMEN Ordering Facility: [facility] Address: [address] [place] [address] Result Comment: Unab le to assay due to interference from hemolysis. Suggest reorder as clinically indicated. Performed By: #### 2 4322-8, #### [facility] CLIA [id number] [address] Anion gap [Moles/Vol] 14 mmol/L Normal 9-18 [facility] Comment on above: Order Comment: Speci men Type: BLOOD SPECIMEN Ordering Facility: [facility] Address: [address] [place] [address] Performed By: #### 2 4323-01, #### [facility] CLIA [id number] [address] AST With P-5'-P [Catalytic activity/Vol] Normal [facility] Comment on above: Order Comment: Speci men Type: BLOOD SPECIMEN Ordering Facility: [facility] Address: [address] [place] [address] Result Comment: Unab le to assay due to interference from hemolysis. Suggest reorder as clinically indicated. Performed By: #### 2 4323-01, #### [facility] CLIA [id number] [address] [place] Bilirubin [Mass/Vol] 0.5 mg/dL Normal 0.2-1.3 [facility] Comment on above: Order Comment: Speci men Type: BLOOD SPECIMEN Ordering Facility: [facility] Address: [address] [place] [address] Performed By: #### 2 4323-01, #### [facility] CLIA [id number] 1 [place] [address] [place] Calcium [Mass/Vol] 9.0 mg/dL Normal 8.5-10.2 [facility] Comment on above: Order Comment: Speci men Type: BLOOD SPECIMEN Ordering Facility: [facility] Address: [address] [place] [address] Performed By: #### 2 4323-01, #### [facility] CLIA [id number] 1 [place] [address] [place] Chloride [Moles/Vol] 98 mmol/L Normal 97-105 [facility] Comment on above: Order Comment: Speci men Type: BLOOD SPECIMEN Ordering Facility: [facility] Address: [address] [place] [address] Performed By: #### 2 4323-01, #### [facility] CLIA [id number] 1 [place] [address] [place] CO2 [Moles/Vol] 24 mmol/L Normal 22-30 [facility] Comment on above: Order Comment: Speci men Type: BLOOD SPECIMEN Ordering Facility: [facility] Address: [address] [place] [address] Performed By: #### 2 4323-01, #### [facility] CLIA [id number] 1 [place] [address] [place] Creatinine [Mass/Vol] 1.61 mg/dL High 0.58-0.96 [facility] Comment on above: Order Comment: Speci men Type: BLOOD SPECIMEN Ordering Facility: [facility] Address: [address] [place] [address] Performed By: #### 2 4323-01, #### [facility] CLIA [id number] 1 [place] [address] [place] Creatinine and Glomerular filtration rate.predicted panel (S/P/Bld) 38 mL/min/1.73m??? Low >=60 [facility] Comment on above: Order Comment: Radha tony Type: BLOOD SPECIMEN Ordering Facility: [facility] Address: [address] [place] [address] Result Comment: Crissy mated Glomerular Filtration Rate [...] actual GFR. Performed By: #### 2 4323-8, 92599-4 #### [facility] CLIA [id number] 1 [place] [address] [place] Glucose [Mass/Vol] 160 mg/dL High 74-99 [facility] Comment on above: Order Comment: Radha tony Type: BLOOD SPECIMEN Ordering Facility: [facility] Address: [address] [place] [address] Result Comment: The [place] Diabetes Association (ADA) provides guidance for cutoff [...] Standards of Medical Care in Diabetes 2016, [place] [employer]. Diabetes Care. 2016.39(Suppl 1). Performed By: #### 2 4323-8, 97284-4 #### [facility] CLIA [id number] 1 [place] [address] [place] Potassium [Moles/Vol] Normal [facility] Comment on above: Order Comment: Radha tony Type: BLOOD SPECIMEN Ordering Facility: [facility] Address: [address] [place] [address] Result Comment: Unab le to assay due to interference from hemolysis. Suggest reorder as clinically indicated. Performed By: #### 2 4322-8, #### [facility] CLIA [id number] [address] STATES OF [facility] Protein [Mass/Vol] 6.9 g/dL Normal 6.3-8.0 [facility] Comment on above: Order Comment: Speci men Type: BLOOD SPECIMEN Ordering Facility: [facility] Address: [address] [place] [address] Performed By: #### 2 8, #### [facility] CLIA [id number] [address] Sodium [Moles/Vol] 136 mmol/L Normal 136-144 [facility] Comment on above: Order Comment: Speci men Type: BLOOD SPECIMEN Ordering Facility: [facility] Address: [address] [place] [address] Performed By: #### 2 4323-01, #### [facility] CLIA [id number] [address] STATES [facility] Urea nitrogen [Mass/Vol] 51 mg/dL High 7-21 [facility] Comment on above: Order Comment: Speci men Type: BLOOD SPECIMEN Ordering Facility: [facility] Address: [address] [place] [address] Performed By: #### 2 4323-01, #### [facility] CLIA [id number] [address] [place] ED NOTEon 10-18-2023 ED NOTE HNO ID: [id number] Author: JIMY CHING RN Service: Emergency Medicine Author Type: Registered Nurse Type: ED Notes Filed: 10/18/2023 19:40 Note Text: Xray at bedside Normal [facility] ED NOTE HNO ID: [id number] Author: ERVIN RENO RN Service: Emergency Medicine Author Type: Registered Nurse Type: ED Notes Filed: 10/18/2023 18:56 Note Text: XR notified pt is ready for ordered imaging Normal [facility] ED NOTE HNO ID: [id number] Author: ERVIN RENO RN Service: Emergency Medicine Author Type: Registered Nurse Type: ED Notes Filed: 10/18/2023 18:32 Note Text: Patient's identity verified by patient stating name, Patient's identity verified by patient stating date, Patient's identity verified by hospital ID [email or web address]. Patient placed on cardiac nurse practitioner, patient placed on non-invasive blood pressure monitor, patient placed on continuous pulse oximetry. Alarms set and on, patient tolerating monitoring. Normal [facility] ED NOTE HNO ID: [id number] Author: GARRISON VAUGHAN, CHAYITO Service: ? Author Type: Registered Nurse Type: ED Notes Filed: 10/18/2023 18:24 Note Text: Bed: [facility] Expected date: Expected time: Means of arrival: Comments: ONLY Normal [facility] ED PROV NOTEon 10-18-2023 ED PROV NOTE HNO ID: [id number] Author: MARIA E PORTILLO MD Service: Emergency [...] infection at this time. Patient with an RBOBIE. The patient however states she has been [...] Health Care ED PROV NOTE HNO ID: [id number] Author: MARIA E PORTILLO MD Service: Emergency [...] Hip Pain: Pt arrives via EMS from [facility] for c/o R hip pain. Pt had a fall on and was transferred to [facility] for surgery from [place]. Pt has been having pain since the surgery, worsening recently. Pt endorses ambulation with walker in PT/ OT. Pt AANDO3. 53-year-old female presenting from [facility] for complaint of right hip [...] PHYSICALon 05-16-202 4 HISTORY PHYSICAL HNO ID: [id number] Author: JUANCARLOS GRAHAM APRN.CNP Service: Hospital Medicine Author Type: Nurse Practitioner Type: H&P Filed: 10/19/2023 01:52 Note Text: RAPID OBSERVATION UNIT HISTORY AND PHYSICAL EXAM SERVICE DATE: 10/19/2023 SERVICE TIME: 0152 Primary Care Physician: Nathaly [facility] NIGHT AND WEEKEND COVERAGE: Unit ext: [phone] Pager [phone] Subjective CHIEF COMPLAINT: Right hip pain HPI: [...] obtained by others. Upon arrival to the [facility], patient is complaining of right lateral hip [...] 1 Bottle, Rfl: 2 insulin needles, DISPOSABLE, (QponDirectFINE PENTIPS) 31 gauge x 10/17 ndle, Use with insulin in (more content not included)... Normal [facility] Magnesium SerPl-mCncon 10-17 Magnesium [Mass/Vol] 2.2 mg/dL Normal 1.7-2.3 [facility] Comment on above: Order Comment: Speci men Type: BLOOD SPECIMEN Ordering Facility: [facility] Address: [address] [place] [address] Performed By: #### 2 4323-8, 73425-2 #### [facility] CLIA [id number] [address] POTASSIUMon 10-18-2023 Potassium [Moles/Vol] 4.0 mmol/L Normal 3.7-5.1 [facility] Comment on above: Order Comment: Speci men Type: BLOOD SPECIMEN Ordering Facility: [facility] Address: [address] [place] [address] Performed By: #### 5 8410-2 #### [facility] CLIA [id number] [address] [place] XR HIP 3V [...] Hardware is intact. Vascular calcifications are present. Washing Machine Installer: GEORGE Transcribe Date/Time: Oct 18 2023 8:09P Dictated by : CLOVER LINTON MD This examination was interpreted and the report reviewed and electronically signed by: CLOVER LINTON MD on Oct 18 2023 8:13PM EST [id number] Normal [facility] Basophil percentageOrdered B y: Kaylie Trujillo on 10-12-2023 Chloride [Moles/Vol] 104 mmol/L 98-107 [facility] Glucose [Mass/Vol] 112 mg/dL 74-106 [facility] Comment on above: Fasting Glucose resu lt from 100 to 125 mg/dL suggests IMPAIRED HOMEOSTASIS per A.D.A. criteria. Potassium [Moles/Vol] 4.5 mmol/L 3.5-5.1 [facility] Sodium [Moles/Vol] 138 mmol/L 136-145 [facility] Laboratory - Chemistry and C hemistry - challengeOrdered By: Kaylie Trujillo on 10-12-2023 CO2 [Moles/Vol] 31.0 mmol/L 21.0-32.0 [facility] Urea nitrogen/Creatinine [Mass ratio] 34.1 mg/mg 10-20 [facility] No Panel InformationOrdered By: Kaylie Trujillo on 10-12-2023 Estimated GFR (MDRD) Amer 112 mL/min >60 [facility] Comment on above: GFR Calc Estimated GFR (MDRD) Non-Af Amer 93 mL/min >60 [facility] Comment on above: Non- GFR Calc Serum or plasma calcium xiomara urement (mass/volume)Ordered By: Kaylie Trujillo on 10-12-2023 Calcium [Mass/Vol] 8.7 mg/dL 8.5-10.1 [facility] Serum or plasma creatinine m easurement (mass/volume)Ordered By: Kaylie Trujillo on 10-12-2023 Creatinine [Mass/Vol] 0.70 mg/dL 0.55-1.02 [facility] Comment on above: The validity of the calculated GFR & GFRAA in patients over 70 years has not been determined. Clinical correlation is essential. Serum or plasma urea nitroge n measurement (mass/volume)Ordered By: Kaylie Trujillo on 10-12-2023 Urea nitrogen [Mass/Vol] 24 mg/dL 7-18 [facility] Thin prep Papanicolaou smear with manual screeningOrdered By: Kaylie Trujillo on 10-12-2023 Thin prep Papanicolaou smear with manual screening 3 5-15 [facility] CNPNon 10-09-2023 CNPN Telephone (AGPOB1) ----- TRENTON JACKSON ([id number]) 1970 [facility] Date Time Provider Department 10/09/23 DIYA MAY AGCARLOSB1 During your visit today, we recorded the following information about you: Tenzin Customer Service And Sales Consultant Ethel Shah 10/09/2023 10:51 AM Signed ----- [...] calling if other than patient: Bryant @ [facility] Return call to if other than patient: same Best contact number: [phone] Thank you, Pauly Heredia October 09, 2023 9:46 AM [facility] [place] AlyssaEthel Vikram 10/17/2023 4:44 PM Signed Left [...] all medications X 4 days per her xwvobi-69-9-2017. Problem List As Of Date 10/09/2023 Noted [...] Auto (Unsp spec) [#/Vol] 1.68 10*3/uL 0.83-4.51 [facility] Automated lymphocyte count a s percentage of total leukocytesOrdered By: Kaylie Trujillo on 10-08-2023 Lymphocytes/100 WBC Auto (Unsp spec) 19.2 % 19-41 [facility] Basophil percentageOrdered B y: Kaylie Trujillo on 10-08-2023 Basophils/100 WBC (Bld) 0.7 % 0-1 [facility] Chloride [Moles/Vol] 108 mmol/L 98-107 [facility] Eosinophils/100 WBC (Bld) 1.4 % 0-5 [facility] Glucose [Mass/Vol] 67 mg/dL 74-106 [facility] Hemoglobin (Bld) [Mass/Vol] 12.1 g/dL 12.0-15.0 [facility] Monocytes/100 WBC (Bld) 7.8 % 0-10 [facility] Neutrophils (Bld) [#/Vol] 6.2 10*3/uL 2.0-7.7 [facility] Neutrophils/100 WBC (Bld) 70.6 % 47-70 [facility] Potassium [Moles/Vol] 5.6 mmol/L 3.5-5.1 [facility] Sodium [Moles/Vol] 139 mmol/L 136-145 [facility] WBC (Bld) [#/Vol] 8.7 10*3/uL 4.4-11.0 [facility] Determination of erythrocyte mean corpuscular volume (MCV)Ordered By: Kaylie Trujillo on 10-08-2023 MCV (RBC) [Entitic vol] 86.7 fL 81-99 [facility] Erythrocyte distribution wid th ratioOrdered By: Kaylie Trujillo on 10-08-2023 Erythrocyte distribution width (RBC) [Ratio] 16.6 % 11.6-14.6 [facility] Erythrocyte distribution wid th standard deviationOrdered By: Kaylieoskar Trujillo on 10-08-2023 Erythrocyte distribution width (RBC) [Entitic vol] 52.3 fL 35.1-43.9 [facility] Hematocrit Auto (Bld) [Volum e fraction]Ordered By: Kaylie Trujillo on 10-08-2023 Hematocrit (Bld) [Volume fraction] 39.6 % 37-47 [facility] Immature granulocytes/100 WB C Auto (Bld)Ordered By: Kaylieoskar Trujillo on 10-08-2023 Immature granulocytes/100 WBC (Bld) 0.300 % 0.0-0.9 [facility] Comment on above: IG% - Immature Granu locytes (promyelocytes, myelocytes and metamyelocytes) > 1% indicates that a LEFT SHIFT is Present. Laboratory - Chemistry and C hemistry - challengeOrdered By: Kaylieoskar Trujillo on 10-08-2023 CO2 [Moles/Vol] 27.0 mmol/L 21.0-32.0 [facility] Magnesium [Mass/Vol] 2.5 mg/dL 1.6-2.6 [facility] Urea nitrogen/Creatinine [Mass ratio] 27.6 mg/mg 10-20 [facility] Laboratory - Hematology and Cell countsOrdered By: Kaylie Trujillo on 10-08-2023 MCH (RBC) [Entitic mass] 26.5 pg 27.0-32.0 [facility] MCHC (RBC) [Mass/Vol] 30.6 g/dL 32-36 [facility] Nucleated RBC/100 WBC (Bld) [Ratio] 0 % 0-5 [facility] Platelet mean volume (Bld) [Entitic vol] 9.3 fL 6.2-12.0 [facility] Platelets (Bld) [#/Vol] 243 10*3/uL 150-450 [facility] No Panel InformationOrdered By: Kaylie Trujillo on 10-08-2023 Estimated GFR (MDRD) Amer 102 mL/min >60 [facility] Comment on above: GFR Calc Estimated GFR (MDRD) Non-Af Amer 85 mL/min >60 [facility] Comment on above: Non- GFR Calc RBC Auto (Bld) [#/Vol]Ordere d By: Kaylie Trujillo on 10-08-2023 RBC (Bld) [#/Vol] 4.57 10*6/uL 4.2-5.4 [facility] Serum or plasma calcium xiomara urement (mass/volume)Ordered By: Kaylie Trujillo on 10-08-2023 Calcium [Mass/Vol] 9.3 mg/dL 8.5-10.1 [facility] Serum or plasma creatinine m easurement (mass/volume)Ordered By: Kaylie Trujillo on 10-08-2023 Creatinine [Mass/Vol] 0.76 mg/dL 0.55-1.02 [facility] Comment on above: The validity of the calculated GFR & GFRAA in patients over 70 years has not been determined. Clinical correlation is essential. Serum or plasma urea nitroge n measurement (mass/volume)Ordered By: Kaylie Trujillo on 10-08-2023 Urea nitrogen [Mass/Vol] 21 mg/dL 7-18 [facility] Thin prep Papanicolaou smear with manual screeningOrdered By: Kaylie Trujillo on 10-08-2023 Thin prep Papanicolaou smear with manual screening 4 5-15 [facility] CNPNon 10-04-2023 [place] Telephone (AGPOB1) ----- TRENTON JACKSON ([id number]) 1970 F [place] Date Time Provider Department 10/04/23 DIYA MAY During your visit today, we recorded the following information about you: [place] [employer] Service [employer] Sales Consultant Ethel Shah 10/04/2023 2:40 PM Signed ----- [...] which facility was the patient seen at: [facility] Was an appointment scheduled (Y/N): no-unable to schedule per tool Person calling if other than patient: [place]([facility] [place]) Return call to if other than patient: Bryant Best contact number: [phone] Thank you, Melany Simon October 03, 2023 1:23 PM [place] [employer] Service And Sales Consultant Ethel Shah 10/08/2023 3:47 PM Signed Left message for Bryant to get an update on [place]. Last message to her was instructions from Dr. May regarding giving her antibiotics, taking her to [place] emergency department if no improvements for a surgical consult. Thank you Ethel Dave Customer Service And Sales Consultant [employer] Allergies As of Date: 10/04/2023 Noted [...] all medications X 4 days per her [id number]. Problem List As Of Date 10/04/2023 Noted Resolved Abdominal pain, other specified site [R10.9] 10/23/2012 Essential hypertension [I10] 02/20/2017 Pericardial cyst [Q24.8] 02/20/2017 Pericardial effusion [I31.39] 02/20/2017 Depression [F32.A] 02/20/2017 Anxiety [F41.9] 02/20/2017 Right-sided low back pain with right-sided scia*02/20/2017 Type 2 diabetes mellitus with complication, w (more content not included)... Normal [facility] CNPNon 10-02-2023 [facility] Telephone (AGPOB1) ----- TRENTON JACKSON ([id number]) 1970 [facility] Date Time Provider Department 10/02/23 DIYA MAY [facility] During your visit today, we recorded the following information about you: [place] Customer Service And Sales Consultant Ethel Shah 10/02/2023 12:11 PM Signed ----- [...] Person calling if other than patient: [facility] Return call to if other than patient: bryant Best contact number: [phone] Thank you, Agata Das October 02, 2023 11:16 AM [place] Ethel Shah 10/03/2023 11:29 AM Signed Left message for Bryant - Dr. May does not want to schedule a follow up appointment at this time. He would like an update of her wound since she has started the antibiotic. If it has not changed, gotten better or is worse - he would like her taken to the [place] Emergency Department for a surgical consult. Left my direct phone number so Bryant can call to let me know status. Thank you Ethel Dave Customer Service And Sales Consultant [employer] Allergies As of Date: 10/02/2023 Noted Allergy Reaction LATEX 01/18/2011 9 - Itching Comments: Red and dry cracking skin Date Reviewed: 09/05/2023 Reviewed by: Arminda Murillo RN - Fully Assessed Reason for Visit: Contact Center Call [[id number]] Patient Update [1234] PHYSICIAN INSTRUCTIONS [Other] Prescriptions [...] all medications X 4 days per her [id number]. Problem List As Of Date 10/02/2023 Noted Resolved Abdominal pain, other specified site [R10.9] 10/23/2012 Essential hypertension [I10] 02/20/2017 Pericardial cyst [Q24.8] 02/20/2017 Pericardial effusion [I31.39] 02/20 (more content not included)... Normal [facility] Absolute lymphocyte countOrd ered By: Kaylie Trujillo on 10-01-2023 Lymphocytes Auto (Unsp spec) [#/Vol] 1.59 10*3/uL 0.83-4.51 [facility] Automated lymphocyte count a s percentage of total leukocytesOrdered By: Kaylie Trujillo on 10-01-2023 Lymphocytes/100 WBC Auto (Unsp spec) 24.4 % 19-41 [facility] Basophil percentageOrdered B y: Kaylie Trujillo on 10-01-2023 Basophils/100 WBC (Bld) 1.1 % 0-1 [facility] Chloride [Moles/Vol] 108 mmol/L 98-107 [facility] Eosinophils/100 WBC (Bld) 2.6 % 0-5 [facility] Glucose [Mass/Vol] 123 mg/dL 74-106 [facility] Comment on above: Fasting Glucose resu lt from 100 to 125 mg/dL suggests IMPAIRED HOMEOSTASIS per A.D.A. criteria. Hemoglobin (Bld) [Mass/Vol] 11.7 g/dL 12.0-15.0 [facility] Monocytes/100 WBC (Bld) 8.8 % 0-10 [facility] Neutrophils (Bld) [#/Vol] 4.1 10*3/uL 2.0-7.7 [facility] Neutrophils/100 WBC (Bld) 62.6 % 47-70 [facility] Potassium [Moles/Vol] 5.4 mmol/L 3.5-5.1 [facility] Sodium [Moles/Vol] 138 mmol/L 136-145 [facility] WBC (Bld) [#/Vol] 6.5 10*3/uL 4.4-11.0 [facility] CNPNon 10-01-2023 CNPN Telephone (AGPOB1) ----- ROSEMARYTRENTON CALHOUN ([id number]) 1970 F [place] Date Time Provider Department [...] all medications X 4 days per her [id number]-30-9-2017. Problem List As Of Date 10/01/2023 Noted [...] vol] 86.3 fL 81-99 [facility] Erythrocyte distribution wid th ratioOrdered By: Kaylie Trujillo on 10-01-2023 Erythrocyte distribution width (RBC) [Ratio] 15.9 % 11.6-14.6 [facility] Erythrocyte distribution wid th standard deviationOrdered By: Kaylie Trujillo on 10-01-2023 Erythrocyte distribution width (RBC) [Entitic vol] 50.4 fL 35.1-43.9 [facility] Hematocrit Auto (Bld) [Volum e fraction]Ordered By: Kaylie Trujillo on 10-01-2023 Hematocrit (Bld) [Volume fraction] 37.8 % 37-47 [facility] Immature granulocytes/100 WB C Auto (Bld)Ordered By: Kaylie Trujillo on 10-01-2023 Immature granulocytes/100 WBC (Bld) 0.500 % 0.0-0.9 [facility] Comment on above: IG% - Immature Granu locytes (promyelocytes, myelocytes and metamyelocytes) > 1% indicates that a LEFT SHIFT is Present. Laboratory - Chemistry and C hemistry - challengeOrdered By: Kaylieoskar Trujillo on 10-01-2023 CO2 [Moles/Vol] 27.0 mmol/L 21.0-32.0 [facility] Magnesium [Mass/Vol] 2.6 mg/dL 1.6-2.6 [facility] Urea nitrogen/Creatinine [Mass ratio] 24.1 mg/mg 10-20 [facility] Laboratory - Hematology and Cell countsOrdered By: Kaylie Trujillo on 10-01-2023 MCH (RBC) [Entitic mass] 26.7 pg 27.0-32.0 [facility] MCHC (RBC) [Mass/Vol] 31.0 g/dL 32-36 [facility] Nucleated RBC/100 WBC (Bld) [Ratio] 0 % 0-5 [facility] Platelet mean volume (Bld) [Entitic vol] 9.1 fL 6.2-12.0 [facility] Platelets (Bld) [#/Vol] 218 10*3/uL 150-450 [facility] No Panel InformationOrdered By: Kaylie Trujillo on 10-01-2023 C-Reactive Protein Extended Range 10.40 mg/L 0.0-3.0 [facility] Comment on above: C-Reactive Protein ( CRP) provides useful information for thediagnosis, therapy and monitoring of inflammatory processesand associated diseases. For the evaluation of Relative Riskfor Cardiovascular Disease, a High Sensitivity CRP (HSCRP)should be ordered. Estimated GFR (MDRD) Amer 83 mL/min >60 [facility] Comment on above: GFR Calc Estimated GFR (MDRD) Non-Af Amer 69 mL/min >60 [facility] Comment on above: Non- GFR Calc RBC Auto (Bld) [#/Vol]Ordere d By: Kaylie Trujillo on 10-01-2023 RBC (Bld) [#/Vol] 4.38 10*6/uL 4.2-5.4 [facility] Serum or plasma calcium xiomara urement (mass/volume)Ordered By: Kaylie Trujillo on 10-01-2023 Calcium [Mass/Vol] 9.0 mg/dL 8.5-10.1 [facility] Serum or plasma creatinine m easurement (mass/volume)Ordered By: Kaylie Trujillo on 10-01-2023 Creatinine [Mass/Vol] 0.91 mg/dL 0.55-1.02 [facility] Comment on above: The validity of the calculated GFR & GFRAA in patients over 70 years has not been determined. Clinical correlation is essential. Serum or plasma trough vanco mycin levelOrdered By: Kaylie Trujillo on 10-01-2023 Vancomycin trough [Mass/Vol] 24.8 ug/mL 5.0-15.0 [facility] Comment on above: VANCOMYCIN STANDARED DRUG THERAPY TROUGH LEVEL: 5.0 - 15.0 mg/L VANCOMYCIN HIGH INTENSITY THERAPY TROUGH LEVEL: 15.0 - 20.0 mg/L High Intensity therapy recommended for serious lifethreatening infections include:- Cepyyczxql-Mvpukcoxpvhm-Lkfpeweui (Ventilator/Healtcare Associated)-Sepsis PLEASE CONTACT PHARMACY SERVICES (#[id number]) FOR INTERPRETATIONOF RESULTS. Serum or plasma urea nitroge n measurement (mass/volume)Ordered By: Kaylie Trujillo on 10-01-2023 Urea nitrogen [Mass/Vol] 22 mg/dL 7-18 [facility] Thin prep Papanicolaou smear with manual screeningOrdered By: Kaylie Trujillo on 10-01-2023 Thin prep Papanicolaou smear with manual screening 3 5-15 [facility] Serum or plasma trough vanco mycin levelOrdered By: Kaylie Trujillo on 09-29-2023 Vancomycin trough [Mass/Vol] 17.3 ug/mL 5.0-15.0 [facility] Comment on above: VANCOMYCIN STANDARED DRUG THERAPY TROUGH LEVEL: 5.0 - 15.0 mg/L VANCOMYCIN HIGH INTENSITY THERAPY TROUGH LEVEL: 15.0 - 20.0 mg/L High Intensity therapy recommended for serious lifethreatening infections include:- Akmlfvpldy-Hrvaizkckqsk-Kvkchemsg (Ventilator/Healtcare Associated)-Sepsis PLEASE CONTACT PHARMACY SERVICES (#[id number]) FOR INTERPRETATIONOF RESULTS. Adriana 09-27-2023 CNPN Telephone (AGPOB1) ----- TRENTON AJCKSON ([id number]) 1970 [facility] Date Time Provider Department 09/27/23 DIYA MAY AGPOB1 During your visit today, we recorded the following information about you: Ethel Alonso 09/27/2023 3:54 PM Signed Received message from Stephania at [facility] stating [place] is forming an [...] a local orthopedic since she is in [place]. Dr. Posadas - [phone] He would like if the facility could send a picture of the incision and to start her on Doxycycline 100mg BID. Called Stephania with instructions and Dr. Posadas' phone number. Thank you Ethel Dave Customer Service And Sales Consultant [employer] Allergies As of Date: 09/27/2023 Noted [...] all medications X 4 days per her [id number]. Problem List As Of Date 09/27/2023 Noted [...] Auto (Unsp spec) [#/Vol] 1.63 10*3/uL 0.83-4.51 [facility] Automated lymphocyte count a s percentage of total leukocytesOrdered By: Kaylie Trujillo on 09-24-2023 Lymphocytes/100 WBC Auto (Unsp spec) 21.3 % 19-41 [facility] Basophil percentageOrdered B y: Kaylie Trujillo on 09-24-2023 Basophils/100 WBC (Bld) 1.0 % 0-1 [facility] Chloride [Moles/Vol] 99 mmol/L 98-107 [facility] Eosinophils/100 WBC (Bld) 2.1 % 0-5 [facility] Glucose [Mass/Vol] 166 mg/dL 74-106 [facility] Comment on above: Fasting Glucose resu lt greater than or equal to 126 mg/dL suggests DIABETES MELLITUS per A.D.A. criteria. Hemoglobin (Bld) [Mass/Vol] 11.8 g/dL 12.0-15.0 [facility] Monocytes/100 WBC (Bld) 9.3 % 0-10 [facility] Neutrophils (Bld) [#/Vol] 5.1 10*3/uL 2.0-7.7 [facility] Neutrophils/100 WBC (Bld) 65.9 % 47-70 [facility] Potassium [Moles/Vol] 4.8 mmol/L 3.5-5.1 [facility] Sodium [Moles/Vol] 134 mmol/L 136-145 [facility] WBC (Bld) [#/Vol] 7.7 10*3/uL 4.4-11.0 [facility] Determination of erythrocyte mean corpuscular volume (MCV)Ordered By: Kaylie Trujillo on 09-24-2023 MCV (RBC) [Entitic vol] 84.3 fL 81-99 [facility] Erythrocyte distribution wid th ratioOrdered By: Kaylie Trujillo on 09-24-2023 Erythrocyte distribution width (RBC) [Ratio] 15.5 % 11.6-14.6 [facility] Erythrocyte distribution wid th standard deviationOrdered By: Kaylie Trujillo on 09-24-2023 Erythrocyte distribution width (RBC) [Entitic vol] 46.9 fL 35.1-43.9 [facility] Hematocrit Auto (Bld) [Volum e fraction]Ordered By: Kaylie Trujillo on 09-24-2023 Hematocrit (Bld) [Volume fraction] 37.7 % 37-47 [facility] Immature granulocytes/100 WB C Auto (Bld)Ordered By: Kaylie Trujillo on 09-24-2023 Immature granulocytes/100 WBC (Bld) 0.400 % 0.0-0.9 [facility] Comment on above: IG% - Immature Granu locytes (promyelocytes, myelocytes and metamyelocytes) > 1% indicates that a LEFT SHIFT is Present. Laboratory - Chemistry and C hemistry - challengeOrdered By: Kaylie Trujillo on 09-24-2023 CO2 [Moles/Vol] 29.0 mmol/L 21.0-32.0 [facility] Magnesium [Mass/Vol] 2.8 mg/dL 1.6-2.6 [facility] Urea nitrogen/Creatinine [Mass ratio] 38.8 mg/mg 10-20 [facility] Laboratory - Hematology and Cell countsOrdered By: Kaylie Trujillo on 09-24-2023 MCH (RBC) [Entitic mass] 26.4 pg 27.0-32.0 [facility] MCHC (RBC) [Mass/Vol] 31.3 g/dL 32-36 [facility] Nucleated RBC/100 WBC (Bld) [Ratio] 0 % 0-5 [facility] Platelet mean volume (Bld) [Entitic vol] 9.4 fL 6.2-12.0 [facility] Platelets (Bld) [#/Vol] 316 10*3/uL 150-450 [facility] No Panel InformationOrdered By: Kaylie Trujillo on 09-24-2023 Estimated GFR (MDRD) Amer 82 mL/min >60 [facility] Comment on above: GFR Calc Estimated GFR (MDRD) Non-Af Amer 67 mL/min >60 [facility] Comment on above: Non- GFR Calc RBC Auto (Bld) [#/Vol]Ordere d By: Kaylie Trujillo on 09-24-2023 RBC (Bld) [#/Vol] 4.47 10*6/uL 4.2-5.4 [facility] Serum or plasma calcium xiomara urement (mass/volume)Ordered By: Kaylie Trujillo on 09-24-2023 Calcium [Mass/Vol] 8.8 mg/dL 8.5-10.1 [facility] Serum or plasma creatinine m easurement (mass/volume)Ordered By: Kaylie Trujillo on 09-24-2023 Creatinine [Mass/Vol] 0.93 mg/dL 0.55-1.02 [facility] Comment on above: The validity of the calculated GFR & GFRAA in patients over 70 years has not been determined. Clinical correlation is essential. Serum or plasma thyroid stim ulating hormone (TSH) measurement (units/volume)Ordered By: Kaylie Trujillo on 09-24-2023 TSH Qn 6.61 uIU/mL 0.358-3.74 [facility] Serum or plasma urea nitroge n measurement (mass/volume)Ordered By: Kaylie Trujillo on 09-24-2023 Urea nitrogen [Mass/Vol] 36 mg/dL 7-18 [facility] Thin prep Papanicolaou smear with manual screeningOrdered By: Kaylie Trujillo on 09-24-2023 Thin prep Papanicolaou smear with manual screening 6 5-15 [facility] Absolute lymphocyte countOrd ered By: Kaylie Trujillo on 09-17-2023 Lymphocytes Auto (Unsp spec) [#/Vol] 1.47 10*3/uL 0.83-4.51 [facility] Automated lymphocyte count a s percentage of total leukocytesOrdered By: Kaylie Trujillo on 09-17-2023 Lymphocytes/100 WBC Auto (Unsp spec) 13.5 % 19-41 [facility] Basophil percentageOrdered B y: Kaylie Trujillo on 09-17-2023 Basophils/100 WBC (Bld) 0.9 % 0-1 [facility] Chloride [Moles/Vol] 96 mmol/L 98-107 [facility] Eosinophils/100 WBC (Bld) 1.3 % 0-5 [facility] Glucose [Mass/Vol] 134 mg/dL 74-106 [facility] Comment on above: Fasting Glucose resu lt greater than or equal to 126 mg/dL suggests DIABETES MELLITUS per A.D.A. criteria. Hemoglobin (Bld) [Mass/Vol] 12.8 g/dL 12.0-15.0 [facility] Monocytes/100 WBC (Bld) 5.7 % 0-10 [facility] Neutrophils (Bld) [#/Vol] 8.5 10*3/uL 2.0-7.7 [facility] Neutrophils/100 WBC (Bld) 78.0 % 47-70 [facility] Potassium [Moles/Vol] 4.5 mmol/L 3.5-5.1 [facility] Sodium [Moles/Vol] 133 mmol/L 136-145 [facility] WBC (Bld) [#/Vol] 10.9 10*3/uL 4.4-11.0 [facility] Determination of erythrocyte mean corpuscular volume (MCV)Ordered By: Kaylie Trujillo on 09-17-2023 MCV (RBC) [Entitic vol] 86.0 fL 81-99 [facility] Erythrocyte distribution wid th ratioOrdered By: Kaylie Trujillo on 09-17-2023 Erythrocyte distribution width (RBC) [Ratio] 15.2 % 11.6-14.6 [facility] Erythrocyte distribution wid th standard deviationOrdered By: Kaylie Trujillo on 09-17-2023 Erythrocyte distribution width (RBC) [Entitic vol] 46.5 fL 35.1-43.9 [facility] Hematocrit Auto (Bld) [Volum e fraction]Ordered By: Kaylie Trujillo on 09-17-2023 Hematocrit (Bld) [Volume fraction] 42.9 % 37-47 [facility] Immature granulocytes/100 WB C Auto (Bld)Ordered By: Kaylie Trujillo on 09-17-2023 Immature granulocytes/100 WBC (Bld) 0.600 % 0.0-0.9 [facility] Comment on above: IG% - Immature Granu locytes (promyelocytes, myelocytes and metamyelocytes) > 1% indicates that a LEFT SHIFT is Present. Laboratory - Chemistry and C hemistry - challengeOrdered By: Kaylie Trujillo on 09-17-2023 CO2 [Moles/Vol] 35.0 mmol/L 21.0-32.0 [facility] Magnesium [Mass/Vol] 2.9 mg/dL 1.6-2.6 [facility] Urea nitrogen/Creatinine [Mass ratio] 26.9 mg/mg 10-20 [facility] Laboratory - Hematology and Cell countsOrdered By: Kaylie Trujillo on 09-17-2023 MCH (RBC) [Entitic mass] 25.7 pg 27.0-32.0 [facility] MCHC (RBC) [Mass/Vol] 29.8 g/dL 32-36 [facility] Nucleated RBC/100 WBC (Bld) [Ratio] 0 % 0-5 [facility] Platelet mean volume (Bld) [Entitic vol] 9.6 fL 6.2-12.0 [facility] Platelets (Bld) [#/Vol] 399 10*3/uL 150-450 [facility] No Panel InformationOrdered By: Kaylie Trujillo on 09-17-2023 Estimated GFR (MDRD) Amer 61 mL/min >60 [facility] Comment on above: GFR Calc Estimated GFR (MDRD) Non-Af Amer 51 mL/min >60 [facility] Comment on above: Non- GFR Calc RBC Auto (Bld) [#/Vol]Ordere d By: Kaylie Trujillo on 09-17-2023 RBC (Bld) [#/Vol] 4.99 10*6/uL 4.2-5.4 [facility] Serum or plasma calcium xiomara urement (mass/volume)Ordered By: Kaylie Trujillo on 09-17-2023 Calcium [Mass/Vol] 9.2 mg/dL 8.5-10.1 [facility] Serum or plasma creatinine m easurement (mass/volume)Ordered By: Kaylie Trujillo on 09-17-2023 Creatinine [Mass/Vol] 1.19 mg/dL 0.55-1.02 [facility] Comment on above: The validity of the calculated GFR & GFRAA in patients over 70 years has not been determined. Clinical correlation is essential. Serum or plasma urea nitroge n measurement (mass/volume)Ordered By: Kaylie Trujillo on 09-17-2023 Urea nitrogen [Mass/Vol] 32 mg/dL 7-18 [facility] Thin prep Papanicolaou smear with manual screeningOrdered By: Kaylie Trujillo on 09-17-2023 Thin prep Papanicolaou smear with manual screening 2 - [facility] CNPNon 09-12-2023 CNPN Telephone (AGPOB1) ----- TRENTON JACKSON ([id number]) 1970 [facility] Date Time Provider Department 09/12/[address] [facility] During your visit today, we recorded the following information about you: [place] Ethel Shah 09/12/2023 9:24 AM Signed ----- Message from Evelyne Madsen sent at 09/11/2023 2:07 PM EDT ----- Regarding: Fncjq-Ulohhr-[id number] follow up post op- hip fracture Subject [...] which facility was the patient seen at: [facility] Was an appointment scheduled (Y/N): N/A Person calling if other than patient: [facility]AB [facility] Return call to if other than patient: REHAB Best contact number: [phone] Thank you, Evelyne Tena September 11, 2023 2:07 PM [place] Alyssa, Ethel J 09/14/2023 2:38 PM Signed Left a message for Nurse Mgr Bryant Ruiz at the rehab facility ([phone]) that we do not need to schedule an appointment at this time but we would like to have a disc with an x-ray of [place]'s pelvis for review 09/17/23. Thank you Ethel Dave Customer Service And Sales Consultant [employer] Allergies As of Date: 09/12/2023 Noted [...] all medications X 4 days per her [id number]-66-4-2017. Problem List As Of Date 09/12/2023 Noted [...] Auto (Unsp spec) [#/Vol] 1.61 10*3/uL 0.83-4.51 [facility] Automated lymphocyte count a s percentage of total leukocytesOrdered By: Kaylie Trujillo on 09-10-2023 Lymphocytes/100 WBC Auto (Unsp spec) 25.0 % 19-41 [facility] Basophil percentageOrdered B y: Kaylie Trujillo on 09-10-2023 Basophils/100 WBC (Bld) 0.8 % 0-1 [facility] Chloride [Moles/Vol] 97 mmol/L 98-107 [facility] Cholesterol [Mass/Vol] 140 mg/dL <200 [facility] Comment on above: <200 mg/dL Desirable 200-240 mg/dL Borderline >240 mg/dL High Risk Eosinophils/100 WBC (Bld) 0.8 % 0-5 [facility] Glucose [Mass/Vol] 150 mg/dL 74-106 [facility] Comment on above: Fasting Glucose resu lt greater than or equal to 126 mg/dL suggests DIABETES MELLITUS per A.D.A. criteria. Hemoglobin (Bld) [Mass/Vol] 11.6 g/dL 12.0-15.0 [facility] Monocytes/100 WBC (Bld) 10.6 % 0-10 [facility] Neutrophils (Bld) [#/Vol] 4.0 10*3/uL 2.0-7.7 [facility] Neutrophils/100 WBC (Bld) 62.3 % 47-70 [facility] Potassium [Moles/Vol] 3.7 mmol/L 3.5-5.1 [facility] Sodium [Moles/Vol] 137 mmol/L 136-145 [facility] Triglyceride [Mass/Vol] 227 mg/dL <199 [facility] Comment on above: The drugs N-Acetylcy steine and Metamizole may falsely depress this assay.Serum Triglycerides Reference Interval Normal <150 mg/dL Borderline high 150 - 199 mg/dL High 200 - 499 mg/dL Very High > or = 500 mg/dL WBC (Bld) [#/Vol] 6.4 10*3/uL 4.4-11.0 [facility] Determination of erythrocyte mean corpuscular volume (MCV)Ordered By: Kaylie Trujillo on 09-10-2023 MCV (RBC) [Entitic vol] 82.4 fL 81-99 [facility] Erythrocyte distribution wid th ratioOrdered By: Kaylieoskar Trujillo on 09-10-2023 Erythrocyte distribution width (RBC) [Ratio] 14.3 % 11.6-14.6 [facility] Erythrocyte distribution wid th standard deviationOrdered By: Kaylie Ronnie on 09-10-2023 Erythrocyte distribution width (RBC) [Entitic vol] 42.5 fL 35.1-43.9 [facility] Hematocrit Auto (Bld) [Volum e fraction]Ordered By: Kaylie Trujillo on 09-10-2023 Hematocrit (Bld) [Volume fraction] 36.6 % 37-47 [facility] Immature granulocytes/100 WB C Auto (Bld)Ordered By: Kaylie Trujillo on 09-10-2023 Immature granulocytes/100 WBC (Bld) 0.500 % 0.0-0.9 [facility] Comment on above: IG% - Immature Granu locytes (promyelocytes, myelocytes and metamyelocytes) > 1% indicates that a LEFT SHIFT is Present. Laboratory - Chemistry and C hemistry - challengeOrdered By: Kaylieoskar Trujillo on 09-10-2023 Cholesterol in HDL [Mass/Vol] 31 mg/dL >40 [facility] Comment on above: The drugs N-Acetylcy steine and Metamizole may falsely depress this assay. Reference Range HDL <40 mg/dL Low HDL Cholesterol HDL >or= 60 mg/dL High HDL Cholesterol Cholesterol in LDL [Mass/Vol] 64 mg/dL 0-130 [facility] CO2 [Moles/Vol] 31.0 mmol/L 21.0-32.0 [facility] Cobalamin (Vitamin B12) [Mass/Vol] 300 pg/mL 211-911 [facility] Magnesium [Mass/Vol] 1.8 mg/dL 1.6-2.6 [facility] Urea nitrogen/Creatinine [Mass ratio] 20.4 mg/mg 10-20 [facility] Laboratory - Hematology and Cell countsOrdered By: Kaylie Trujillo on 09-10-2023 MCH (RBC) [Entitic mass] 26.1 pg 27.0-32.0 [facility] MCHC (RBC) [Mass/Vol] 31.7 g/dL 32-36 [facility] Nucleated RBC/100 WBC (Bld) [Ratio] 0 % 0-5 [facility] Platelet mean volume (Bld) [Entitic vol] 9.8 fL 6.2-12.0 [facility] Platelets (Bld) [#/Vol] 262 10*3/uL 150-450 [facility] No Panel InformationOrdered By: Kaylie Trujillo on 09-10-2023 Estimated GFR (MDRD) Amer 92 mL/min >60 [facility] Comment on above: GFR Calc Estimated GFR (MDRD) Non-Af Amer 76 mL/min >60 [facility] Comment on above: Non- GFR Calc Vitamin D 25-Hydroxy 18.5 ng/mL [facility] Comment on above: Vitamin D 25(OH) Sta tus Range Deficiency <20 ng/mL (50nmol/L) Insufficiency 20 - 30 ng/mL (50 - 75 nmol/L) Sufficiency 30 - 100 ng/mL (75 - 250 nmol/L) Toxicity >100 ng/mL (>250 nmol/L) VLDL Cholesterol 45 mg/dL 5-40 [facility] RBC Auto (Bld) [#/Vol]Ordere d By: Kaylie Trujillo on 09-10-2023 RBC (Bld) [#/Vol] 4.44 10*6/uL 4.2-5.4 [facility] Serum or plasma calcium xiomara urement (mass/volume)Ordered By: Kaylie Trujillo on 09-10-2023 Calcium [Mass/Vol] 8.7 mg/dL 8.5-10.1 [facility] Serum or plasma creatinine m easurement [...] on 09-10-2023 TSH Qn 5.60 uIU/mL 0.358-3.74 [facility] Serum or plasma urea nitroge n measurement (mass/volume)Ordered By: Kaylieoskar Trujillo on 09-10-2023 Urea nitrogen [Mass/Vol] 17 mg/dL 7-18 [facility] Thin prep Papanicolaou smear with manual screeningOrdered By: [facility] on 09-10-2023 Thin prep Papanicolaou smear with manual screening 9 5-15 [facility] Whole blood hemoglobin A1c/t otal hemoglobin ratio (mass fraction)Ordered By: Kaylieoskar Trujillo on 09-10-2023 HbA1c (Bld) [Mass fraction] 10.8 % 3.8-5.6 [facility] Comment on above: Normal < 5.7 % Predi abetic 5.7 - 6.4 % Diabetic >or= 6.5 % Please note range changes. CASE MANAGEMon 09-07-2023 CASE MANAGEM HNO ID: [id number] Author: JAMESON BARON RN Service: ? Author Type: Registered Nurse Type: Care Mgt Progress Note Filed: 09/07/2023 14:42 Note Text: CARE MANAGEMENT DISCHARGE NOTE SERVICE DATE: September 07, 2023 SERVICE TIME: 2:41 PM Admission Date: 09/02/2023 LOS: 5 days Discharge Arrangement Discharge Arrangement: Detention Facility Services Arranged Provider Name: [facility] Caregiver Assessment Caregiver is ready, willing and able to meet the patient's needs as recommended by the inter-professional team: Yes Name of Caregiver: SNF Transportation Arrangements Transportation Arrangements: Ambulance Transportation Agency and Phone #:: [facility] ( [facility] ) [phone] / [phone] Date of Trip: 09/07/23 Time of Trip: 1700 Type of Service: BLS Non-emergency Is Patient Medicaid Pending?: No [employer] Location: [facility] Destination: [facility] Care Management Responsibility: None Handoff Communication: Handoff to: Other Caregiver Other Caregiver Name/Phone: nurse to call report Additional Information: Patient to discharge to [facility]. [facility] transport via cot set up for patient at 5PM. Patient and nurse made aware. Transport folder complete and on the chart. SIGNATURE: Jameson Baron RN PATIENT NAME: Trenton Jackson DATE: September 07, 2023 TIME: 2:41 PM CONTACT #[facility] [phone] [facility] HNO ID: [id number] Author: FREDA MACEDO MD Service: General Surgery [...] Doctor: Freda Macedo MD Primary Care Provider: [facility] My Medical Team Members: Treatment Team: Attending Provider: Freda Macedo MD Consulting: Jair Gutierrez MD Consulting: Diya May MD MY CONDITION AT DISCHARGE: Stable REASON I WAS IN THE HOSPITAL: Fall SUMMARY OF WHAT HAPPENED WHILE I WAS IN THE HOSPITAL: Ms. Jackson was admitted at [facility] on 09/02/2023 following a fall. She was found to have the following acute traumatic injuries: 1. Right-sided acute comminuted intertrochanteric proximal femur fracture She was evaluated by orthopedic who recommended surgical fixation of her femur fracture, which she underwent on 09/03/2023. She was evaluated by physical and occupational therapy who recommended a Detention Facility for her ongoing recovery. Ms. Jackson [...] disorder, mild, abuse Coronary artery disease involving [place] coronary artery of [place] heart without angina pectoris Trauma Fall Resolved Problems: * No resolved hospital problems. * OPERATIONS PERFORMED WHILE IN THE HOSPITAL: 09/03/2023 - Right hip CMN (Dr. May) IMPORTANT TEST/PROCEDURES: No procedures performed TEST RESULTS NOT AVAILABLE AT THIS TIME: No pending results Discharge Disposition Discharge Disposition: Detention Facility - Less than 30 Days Activity When You Leave the Hospital May bathe and shower Resume pre-hospital activity Diet Instructions Resume your pre-hospital diet For Pain When You Leave the Hospital Continue taking previously prescribed pain medications as directed If you become constipated, you may use any rspb-ryi-lbshylv treatment such as Milk of Magnesia, Sennakot, Prune Juice, Suppositories, etc. in addition to the stool softener/fiber supplement Use the dispensed medication (see prescription) You should use an fxby-wyp-uumnvut stool softener (Docusate sodium) and/or a fiber [...] call for appointment?: Yes Diya May MD [phone] [address] [facility] [address] [facility] [address] PCP Requested Referral Follow-Up Appointment Please discuss [...] weeks Patient/Parents to call for appointment?: [facility] [phone] [facility] [address] [facility] [phone] (more content not included)... Normal [facility] ED PROV NOTEon 09-07-2023 ED PROV NOTE HNO ID: [id number] Author: MIRNA SAHU MD Service: Emergency Medicine [...] in her bathroom. She was seen at [facility] where she was noted to have [...] Anion gap [Moles/Vol] 9 mmol/L Normal 9-18 [facility] Comment on above: Order Comment: Radha tony Type: BLOOD SPECIMEN Ordering Facility: [facility] Address: [address] [place] [address] Performed By: #### 5 8410-2 #### [facility] CLIA [id number] 1 [place] [address] [place] Calcium [Mass/Vol] 8.4 mg/dL Low 8.5-10.2 [facility] Comment on above: Order Comment: Speci men Type: BLOOD SPECIMEN Ordering Facility: [facility] Address: [facility] [place] [address] Performed By: #### 5 8410-2 #### [facility] CLIA [id number] 1 [place] [address] [place] Chloride [Moles/Vol] 97 mmol/L Normal 97-105 [facility] Comment on above: Order Comment: Speci men Type: BLOOD SPECIMEN Ordering Facility: [facility] Address: [address] [place] [address] Performed By: #### 5 8410-2 #### [facility] CLIA [id number] [address] OF [facility] CO2 [Moles/Vol] 29 mmol/L Normal 22-30 [facility] Comment on above: Order Comment: Speci men Type: BLOOD SPECIMEN Ordering Facility: [facility] Address: [address] [place] [address] Performed By: #### 5 8410-2 #### [facility] CLIA [id number] [address] Creatinine [Mass/Vol] 0.69 mg/dL Normal 0.58-0.96 [facility] Comment on above: Order Comment: Speci men Type: BLOOD SPECIMEN Ordering Facility: [facility] Address: [address] [place] [address] Performed By: #### 5 8410-2 #### [facility] CLIA [id number] [address] Creatinine and Glomerular filtration rate.predicted panel (S/P/Bld) 105 mL/min/1.73m??? Normal >=60 [facility] Comment on above: Order Comment: Speci men Type: BLOOD SPECIMEN Ordering Facility: [facility] Address: [address] [place] [address] Result Comment: Crissy mated Glomerular Filtration Rate [...] GFR. Performed By: #### 5 8410-2 #### [facility] CLIA [id number] [address] Glucose [Mass/Vol] 120 mg/dL High 74-99 [facility] Comment on above: Order Comment: Radha tony Type: BLOOD SPECIMEN Ordering Facility: [facility] Address: [address] [place] [address] Result Comment: The [place] [employer] (ADA) provides guidance for cutoff [...] Standards of Medical Care in Diabetes 2016, [place] [employer]. Diabetes Care. 2016.39(Suppl 1). Performed By: #### 5 8410-2 #### [facility] CLIA [id number] 1 [place] [address] [place] Potassium [Moles/Vol] 3.8 mmol/L Normal 3.7-5.1 [facility] Comment on above: Order Comment: Radha tony Type: BLOOD SPECIMEN Ordering Facility: [facility] Address: [address] [place] [address] Performed By: #### 5 8410-2 #### [facility] CLIA [id number] 1 [place] [address] [place] Sodium [Moles/Vol] 135 mmol/L Low 136-144 [facility] Comment on above: Order Comment: Radha tony Type: BLOOD SPECIMEN Ordering Facility: [facility] Address: [address] [place] [address] Performed By: #### 5 8410-2 #### [facility] CLIA [id number] 1 [place] [address] [place] Urea nitrogen [Mass/Vol] 13 mg/dL Normal 7-21 [facility] Comment on above: Order Comment: Radha tony Type: BLOOD SPECIMEN Ordering Facility: [facility] Address: [address] [place], [place] [address] Performed By: #### 5 8410-2 #### [facility] CLIA [id number] [address] CBC panel Auto (Bld)on 09-05 Erythrocyte distribution width (RBC) [Ratio] 14.1 % Normal 11.5-15.0 [facility] Comment on above: Order Comment: Speci men Type: BLOOD SPECIMEN Ordering Facility: [facility] Address: [address] [place] [address] Performed By: #### 5 8410-2 #### [facility] CLIA [id number] [address] Hematocrit (Bld) [Volume fraction] 31.4 % Low 36.0-46.0 [facility] Comment on above: Order Comment: Speci men Type: BLOOD SPECIMEN Ordering Facility: [facility] Address: [address] [place] [address] Performed By: #### 5 8410-2 #### [facility] CLIA [id number] [address] Hemoglobin (Bld) [Mass/Vol] 10.1 g/dL Low 11.5-15.5 [facility] Comment on above: Order Comment: Speci men Type: BLOOD SPECIMEN Ordering Facility: [facility] Address: [address] [place] [address] Performed By: #### 5 8410-2 #### [facility] CLIA [id number] [address] MCH (RBC) [Entitic mass] 26.5 pg Normal 26.0-34.0 [facility] Comment on above: Order Comment: Speci men Type: BLOOD SPECIMEN Ordering Facility: [facility] Address: [facility] [place] [address] Performed By: #### 5 8410-2 #### [facility] CLIA [id number] [address] MCHC (RBC) [Mass/Vol] 32.2 g/dL Normal 30.5-36.0 [facility] Comment on above: Order Comment: Speci men Type: BLOOD SPECIMEN Ordering Facility: [facility] Address: [facility] [place] [address] Performed By: #### 5 8410-2 #### [facility] CLIA [id number] [address] MCV (RBC) [Entitic vol] 82.4 fL Normal 80.0-100.0 [facility] Comment on above: Order Comment: Speci men Type: BLOOD SPECIMEN Ordering Facility: [facility] Address: [address] [place] [address] Performed By: #### 5 8410-2 #### [facility] CLIA [id number] [address] OF [facility] Nucleated RBC (Bld) [#/Vol] 10*3/uL Normal <0.01 [facility] Comment on above: Order Comment: Speci men Type: BLOOD SPECIMEN Ordering Facility: [facility] Address: [address] [place] [address] Performed By: #### 5 8410-2 #### [facility] CLIA [id number] [address] Platelet mean volume (Bld) [Entitic vol] 10.2 fL Normal 9.0-12.7 [facility] Comment on above: Order Comment: Speci men Type: BLOOD SPECIMEN Ordering Facility: [facility] Address: [address] [place] [address] Performed By: #### 5 8410-2 #### [facility] CLIA [id number] [address] [place] Platelets (Bld) [#/Vol] 135 10*3/uL Low 150-400 [facility] Comment on above: Order Comment: Speci men Type: BLOOD SPECIMEN Ordering Facility: [facility] Address: [address] [place] [address] Result Comment: No c lot detected. Performed By: #### 5 8410-2 #### [facility] CLIA [id number] [address] [place] RBC (Bld) [#/Vol] 3.81 10*6/uL Low 3.90-5.20 [facility] Comment on above: Order Comment: Speci men Type: BLOOD SPECIMEN Ordering Facility: [facility] Address: [address] [place] [address] Performed By: #### 5 8410-2 #### [facility] CLIA [id number] [address] OF [facility] WBC (Bld) [#/Vol] 9.50 10*3/uL Normal 3.70-11.00 [facility] Comment on above: Order Comment: Speci men Type: BLOOD SPECIMEN Ordering Facility: [facility] Address: [address] [place] [address] Performed By: #### 5 8410-2 #### [facility] CLIA [id number] [address] THERAPY NTon 09-06-2023 THERAPY NT HNO ID: [id number] Author: EILEEN MACIAS, PT Service: Physical Therapy Author Type: Physical Therapist Type: Therapy (PT/OT/Speech/Resp) Filed: 09/06/2023 13:17 Note Text: Physical Therapy Treatment Summary SERVICE DATE: 09/06/2023 SERVICE TIME: 1030 to 1053 ROOM: [place] [address] PT 6 Clicks Score: 10 DISCHARGE RECOMMENDATIONS [...] Required With: Transportation Patient reports being independent [employer], 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 SUBJECTIVE Agreeable to PT, reports increased pain this session. Emotional, tearful. THERAPY DIAGNOSIS Reduced mobility-other, Muscle Weakness (generalized), Unsteadiness on feet, Abnormalities of gait and mobility-other, General symptoms and signs-other, Difficulty walking-musculoskeletal TREATMENT INTERVENTIONS Therapeutic Activity (56367), Therapeutic Exercise (36028) Timed Code Treatment (minutes): 23 Skilled Treatment Time (minutes): 23 Therapeutic Exercise (18623) Treatment Minutes: 13 $ Therapeutic Exercise (77365) Billed Units: 1 unit Patient completed right hip fracture protocol (ankle pump, quad set, gluteal set, heel slide, hip abd/add to neutral, short arc quad, hip adductor squeeze) x 10 reps with min/mod amount of assist. Patient reports moderate/severe pain. Patient set up with ice to surgical hip and elevated lower extremity as needed. Therapeutic Activity (40970) Treatment Minutes: 10 $ Therapeutic Activity (94066) Billed Units: 1 unit Rolling for hygiene, [...] Anion gap [Moles/Vol] 9 mmol/L Normal 9-18 [facility] Comment on above: Order Comment: Speci men Type: BLOOD SPECIMEN Ordering Facility: [facility] Address: [address] [place] [address] Performed By: #### 2 4321-2 #### [facility] CLIA [id number] 1 [place] [address] [place] Calcium [Mass/Vol] 8.5 mg/dL Normal 8.5-10.2 [facility] Comment on above: Order Comment: Speci men Type: BLOOD SPECIMEN Ordering Facility: [facility] Address: [address] [place] [address] Performed By: #### 2 4321-2 #### [facility] CLIA [id number] 1 [place] [address] [place] Chloride [Moles/Vol] 96 mmol/L Low 97-105 [facility] Comment on above: Order Comment: Speci men Type: BLOOD SPECIMEN Ordering Facility: [facility] Address: [address] [place] [address] Performed By: #### 2 4321-2 #### [facility] CLIA [id number] 1 [place] [address] [place] CO2 [Moles/Vol] 28 mmol/L Normal 22-30 [facility] Comment on above: Order Comment: Speci men Type: BLOOD SPECIMEN Ordering Facility: [facility] Address: [address] [place] [address] Performed By: #### 2 4321-2 #### [facility] CLIA [id number] [address] [place] Creatinine [Mass/Vol] 0.63 mg/dL Normal 0.58-0.96 [facility] Comment on above: Order Comment: Radha tony Type: BLOOD SPECIMEN Ordering Facility: [facility] Address: [address] [place] [address] Performed By: #### 2 4321-2 #### [facility] CLIA [id number] [address] Creatinine and Glomerular filtration rate.predicted panel (S/P/Bld) 107 mL/min/1.73m??? Normal >=60 [facility] Comment on above: Order Comment: Radha tony Type: BLOOD SPECIMEN Ordering Facility: [facility] Address: [address] [place] [address] Result Comment: Crissy mated Glomerular Filtration Rate [...] GFR. Performed By: #### 2 4321-2 #### [facility] CLIA [id number] [address] [place] [address] [place] [facility] Glucose [Mass/Vol] 110 mg/dL High 74-99 [facility] Comment on above: Order Comment: Radha tony Type: BLOOD SPECIMEN Ordering Facility: [facility] Address: [address] [place] [address] Result Comment: The [place] Diabetes [employer] (ADA) provides guidance for cutoff [...] Standards of Medical Care in Diabetes 2016, [place] [employer]. Diabetes Care. 2016.39(Suppl 1). Performed By: #### 2 4321-2 #### [facility] CLIA [id number] [address] Potassium [Moles/Vol] 3.8 mmol/L Normal 3.7-5.1 [facility] Comment on above: Order Comment: Speci men Type: BLOOD SPECIMEN Ordering Facility: [facility] Address: [address] [place] [address] Performed By: #### 2 4321-2 #### [facility] CLIA [id number] [address] Sodium [Moles/Vol] 133 mmol/L Low 136-144 [facility] Comment on above: Order Comment: Speci men Type: BLOOD SPECIMEN Ordering Facility: [facility] Address: [address] [place] [address] Performed By: #### 2 4321-2 #### [facility] CLIA [id number] [address] Urea nitrogen [Mass/Vol] 13 mg/dL Normal 7-21 [facility] Comment on above: Order Comment: Speci men Type: BLOOD SPECIMEN Ordering Facility: [facility] Address: [address] [place] [address] Performed By: #### 2 4321-2 #### [facility] CLIA [id number] [address] CBC panel Auto (Bld)on 09-04 Erythrocyte distribution width (RBC) [Ratio] 14.0 % Normal 11.5-15.0 [facility] Comment on above: Order Comment: Speci men Type: BLOOD SPECIMEN Ordering Facility: [facility] Address: [address] [place] [address] Performed By: #### 5 8410-2 #### [facility] CLIA [id number] [address] [place] [address] [place] Hematocrit (Bld) [Volume fraction] 35.1 % Low 36.0-46.0 [facility] Comment on above: Order Comment: Speci men Type: BLOOD SPECIMEN Ordering Facility: [facility] Address: [address] [place] [address] Performed By: #### 5 8410-2 #### [facility] CLIA [id number] [address] Hemoglobin (Bld) [Mass/Vol] 11.5 g/dL Normal 11.5-15.5 [facility] Comment on above: Order Comment: Speci men Type: BLOOD SPECIMEN Ordering Facility: [facility] Address: [address] [place] [address] Performed By: #### 5 8410-2 #### [facility] CLIA [id number] [address] OF [facility] MCH (RBC) [Entitic mass] 26.7 pg Normal 26.0-34.0 [facility] Comment on above: Order Comment: Speci men Type: BLOOD SPECIMEN Ordering Facility: [facility] Address: [address] [place] [address] Performed By: #### 5 8410-2 #### [facility] CLIA [id number] [address] MCHC (RBC) [Mass/Vol] 32.8 g/dL Normal 30.5-36.0 [facility] Comment on above: Order Comment: Speci men Type: BLOOD SPECIMEN Ordering Facility: [facility] Address: [address] [place] [address] Performed By: #### 5 8410-2 #### [facility] CLIA [id number] [address] MCV (RBC) [Entitic vol] 81.4 fL Normal 80.0-100.0 [facility] Comment on above: Order Comment: Speci men Type: BLOOD SPECIMEN Ordering Facility: [facility] Address: [address] [place] [address] Performed By: #### 5 8410-2 #### [facility] CLIA [id number] [address] Nucleated RBC (Bld) [#/Vol] 10*3/uL Normal <0.01 [facility] Comment on above: Order Comment: Speci men Type: BLOOD SPECIMEN Ordering Facility: [facility] Address: [address] [place] [address] Performed By: #### 5 8410-2 #### [facility] [facility] CLIA [id number] [address] [facility] Platelet mean volume (Bld) [Entitic vol] 10.5 fL Normal 9.0-12.7 [facility] Comment on above: Order Comment: Speci men Type: BLOOD SPECIMEN Ordering Facility: [facility] Address: [address] [place] [address] Performed By: #### 5 8410-2 #### [facility] CLIA [id number] [address] Platelets (Bld) [#/Vol] 111 10*3/uL Low 150-400 [facility] Comment on above: Order Comment: Speci men Type: BLOOD SPECIMEN Ordering Facility: [facility] Address: [address] [place] [address] Result Comment: No c lot detected. Performed By: #### 5 8410-2 #### [facility] CLIA [id number] [address] RBC (Bld) [#/Vol] 4.31 10*6/uL Normal 3.90-5.20 [facility] Comment on above: Order Comment: Speci men Type: BLOOD SPECIMEN Ordering Facility: [facility] Address: [address] [place] [address] Performed By: #### 5 8410-2 #### [facility] CLIA [id number] [address] OF [place] WBC (Bld) [#/Vol] 13.47 10*3/uL High 3.70-11.00 [facility] Comment on above: Order Comment: Speci men Type: BLOOD SPECIMEN Ordering Facility: [facility] Address: [facility] [place] [address] Performed By: #### 5 8410-2 #### [facility] CLIA [id number] 1 [place] [address] [place] THERAPY NTon 09-05-2023 THERAPY NT HNO ID: [id number] Author: EILEEN MACIAS, PT Service: Physical Therapy Author Type: Physical Therapist Type: Therapy (PT/OT/Speech/Resp) Filed: 09/05/2023 13:25 Note Text: Physical Therapy Treatment Summary SERVICE DATE: 09/05/2023 SERVICE TIME: 1039 to 1102 ROOM: [place] [address] PT 6 Clicks Score: 10 DISCHARGE RECOMMENDATIONS [...] Required With: Transportation Patient reports being independent [employer], 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 SUBJECTIVE Pleasant and agreeable to PT. THERAPY DIAGNOSIS Reduced mobility-other, Muscle Weakness (generalized), Unsteadiness on feet, Abnormalities of gait and mobility-other, General symptoms and signs-other, Difficulty walking-musculoskeletal TREATMENT INTERVENTIONS Therapeutic Exercise (03594), Therapeutic Activity (46486) Timed Code Treatment (minutes): 23 Skilled Treatment Time (minutes): 23 Therapeutic Exercise (44714) Treatment Minutes: 12 $ Therapeutic Exercise (33774) Billed Units: 1 unit Patient completed right hip fracture protocol (ankle pump, quad set, gluteal set, heel slide, hip abd/add to neutral, short arc quad, long arc quad, hip adductor squeeze) x 10 reps with min amount of assist. Patient reports moderate pain. Patient set up with ice to surgical hip and elevated lower extremity as needed. Therapeutic Activity (20919) Treatment Minutes: 11 $ Therapeutic Activity (04353) Billed Units: 1 unit TRAINING AND EDUCATION [...] EVALon 024 ANES POSTPROC EVAL HNO ID: [id number] Author: MOODY HODGE DO Service: Anesthesiology Author [...] November 02, 2023 TIME: 10:25 AM CSN: [id number] Normal [facility] Basic metabolic 2000 panelon 09-04-2023 Anion gap [Moles/Vol] 9 mmol/L Normal 9-18 [facility] Comment on above: Order Comment: Speci men Type: BLOOD SPECIMEN Ordering Facility: [facility] Address: [address] [place] [address] Performed By: #### 2 4321-2 #### [facility] CLIA [id number] [address] [place] Calcium [Mass/Vol] 8.5 mg/dL Normal 8.5-10.2 [facility] Comment on above: Order Comment: Speci men Type: BLOOD SPECIMEN Ordering Facility: [facility] Address: [address] [place] [address] Performed By: #### 2 4321-2 #### [facility] CLIA [id number] 1 [place] [address] [place] Chloride [Moles/Vol] 97 mmol/L Normal 97-105 [facility] Comment on above: Order Comment: Speci men Type: BLOOD SPECIMEN Ordering Facility: [facility] Address: [address] [place] [address] Performed By: #### 2 4321-2 #### [facility] CLIA [id number] [address] [place] CO2 [Moles/Vol] 30 mmol/L Normal 22-30 [facility] Comment on above: Order Comment: Speci men Type: BLOOD SPECIMEN Ordering Facility: [facility] Address: [address] [place] [address] Performed By: #### 2 4321-2 #### [facility] CLIA [id number] [address] [place] Creatinine [Mass/Vol] 0.78 mg/dL Normal 0.58-0.96 [facility] Comment on above: Order Comment: Speci men Type: BLOOD SPECIMEN Ordering Facility: [facility] Address: [address] [place] [address] Performed By: #### 2 4321-2 #### [facility] CLIA [id number] [address] [place] Creatinine and Glomerular filtration rate.predicted panel (S/P/Bld) 92 mL/min/1.73m??? Normal >=60 [facility] Comment on above: Order Comment: Radha tony Type: BLOOD SPECIMEN Ordering Facility: [facility] Address: [address] [place] [address] Result Comment: Crissy mated Glomerular Filtration Rate [...] GFR. Performed By: #### 2 4321-2 #### [facility] CLIA [id number] 1 [place] [address] [place] Glucose [Mass/Vol] 174 mg/dL High 74-99 [facility] Comment on above: Order Comment: Radha tony Type: BLOOD SPECIMEN Ordering Facility: [facility] Address: [address] [place] [address] Result Comment: The [place] Diabetes Association (ADA) provides guidance for cutoff [...] Standards of Medical Care in Diabetes 2016, [place] [employer]. Diabetes Care. 2016.39(Suppl 1). Performed By: #### 2 4321-2 #### [facility] CLIA [id number] 1 [place] [address] [place] Potassium [Moles/Vol] 3.8 mmol/L Normal 3.7-5.1 [facility] Comment on above: Order Comment: Radha tnoy Type: BLOOD SPECIMEN Ordering Facility: [facility] Address: [address] [place] [id number] Performed By: #### 2 4321-2 #### [facility] CLIA [id number] [address] STATES [facility] Sodium [Moles/Vol] 136 mmol/L Normal 136-144 [facility] Comment on above: Order Comment: Speci men Type: BLOOD SPECIMEN Ordering Facility: [facility] Address: [address] [place] [address] Performed By: #### 2 4321-2 #### [facility] CLIA [id number] [address] [place] Urea nitrogen [Mass/Vol] 13 mg/dL Normal 7-21 [facility] Comment on above: Order Comment: Speci men Type: BLOOD SPECIMEN Ordering Facility: [facility] Address: [address] [place] [address] Performed By: #### 2 4321-2 #### [facility] CLIA [id number] [address] [place] CBC panel Auto (Bld)on 09-03 Erythrocyte distribution width (RBC) [Ratio] 14.1 % Normal 11.5-15.0 [facility] Comment on above: Order Comment: Speci men Type: BLOOD SPECIMEN Ordering Facility: [facility] Address: [address] [place] [address] Performed By: #### 2 4321-2 #### [facility] CLIA [id number] [address] OF [place] Hematocrit (Bld) [Volume fraction] 37.7 % Normal 36.0-46.0 [facility] Comment on above: Order Comment: Speci men Type: BLOOD SPECIMEN Ordering Facility: [facility] Address: [address] [place] [address] Performed By: #### 2 4321-2 #### [facility] CLIA [id number] [address] [place] Hemoglobin (Bld) [Mass/Vol] 12.3 g/dL Normal 11.5-15.5 [facility] Comment on above: Order Comment: Speci men Type: BLOOD SPECIMEN Ordering Facility: [facility] Address: [address] [place] [address] Performed By: #### 2 4321-2 #### [facility] CLIA [id number] [address] MCH (RBC) [Entitic mass] 26.8 pg Normal 26.0-34.0 [facility] Comment on above: Order Comment: Speci men Type: BLOOD SPECIMEN Ordering Facility: [facility] Address: [address] [place] [address] Performed By: #### 2 4321-2 #### [facility] CLIA [id number] [address] MCHC (RBC) [Mass/Vol] 32.6 g/dL Normal 30.5-36.0 [facility] Comment on above: Order Comment: Speci men Type: BLOOD SPECIMEN Ordering Facility: [facility] Address: [address] [place] [address] Performed By: #### 2 4321-2 #### [facility] CLIA [id number] [address] MCV (RBC) [Entitic vol] 82.1 fL Normal 80.0-100.0 [facility] Comment on above: Order Comment: Speci men Type: BLOOD SPECIMEN Ordering Facility: [facility] Address: [address] [place] [address] Performed By: #### 2 4321-2 #### [facility] CLIA [id number] [address] Nucleated RBC (Bld) [#/Vol] 10*3/uL Normal <0.01 [facility] Comment on above: Order Comment: Speci men Type: BLOOD SPECIMEN Ordering Facility: [facility] Address: [address] [place] [address] Performed By: #### 2 4321-2 #### [facility] CLIA [id number] [address] OF [place] Platelet mean volume (Bld) [Entitic vol] 9.9 fL Normal 9.0-12.7 [facility] Comment on above: Order Comment: Speci men Type: BLOOD SPECIMEN Ordering Facility: [facility] Address: [address] [place] [address] Performed By: #### 2 4321-2 #### [facility] CLIA [id number] [address] OF [facility] Platelets (Bld) [#/Vol] 108 10*3/uL Low 150-400 [facility] Comment on above: Order Comment: Speci men Type: BLOOD SPECIMEN Ordering Facility: [facility] Address: [address] [place] [address] Result Comment: No c lot detected. Performed By: #### 2 4321-2 #### [facility] CLIA [id number] [address] RBC (Bld) [#/Vol] 4.59 10*6/uL Normal 3.90-5.20 [facility] Comment on above: Order Comment: Speci men Type: BLOOD SPECIMEN Ordering Facility: [facility] Address: [address] [place] [address] Performed By: #### 2 4321-2 #### [facility] CLIA [id number] [address] [facility] WBC (Bld) [#/Vol] 12.21 10*3/uL High 3.70-11.00 [facility] Comment on above: Order Comment: Speci men Type: BLOOD SPECIMEN Ordering Facility: [facility] Address: [address] [place] [address] Performed By: #### 2 4321-2 #### [facility] CLIA [id number] [address] Comprehensive metabolic 2000 panelon 09-04-2023 Albumin [Mass/Vol] 2.6 g/dL Low 3.9-4.9 [facility] Comment on above: Order Comment: Speci men Type: BLOOD SPECIMEN Ordering Facility: [facility] Address: [address] [place] [address] Performed By: #### 2 4321-2 #### [facility] CLIA [id number] [address] [place] ALP [Catalytic activity/Vol] 92 U/L Normal 34-123 [facility] Comment on above: Order Comment: Speci men Type: BLOOD SPECIMEN Ordering Facility: [facility] Address: [address] [place] [address] Performed By: #### 2 4321-2 #### [facility] CLIA [id number] [address] [facility] ALT With P-5'-P [Catalytic activity/Vol] 9 U/L Normal 7-38 [facility] Comment on above: Order Comment: Speci men Type: BLOOD SPECIMEN Ordering Facility: [facility] Address: [address] [place] [address] Performed By: #### 2 4321-2 #### [facility] CLIA [id number] [address] Anion gap [Moles/Vol] 6 mmol/L Low 9-18 [facility] Comment on above: Order Comment: Speci men Type: BLOOD SPECIMEN Ordering Facility: [facility] Address: [address] [place] [address] Performed By: #### 2 4321-2 #### [facility] CLIA [id number] [address] AST With P-5'-P [Catalytic activity/Vol] 13 U/L Normal 13-35 [facility] Comment on above: Order Comment: Speci men Type: BLOOD SPECIMEN Ordering Facility: [facility] Address: [address] [place] [address] Performed By: #### 2 4321-2 #### [facility] CLIA [id number] [address] Bilirubin [Mass/Vol] 0.8 mg/dL Normal 0.2-1.3 [facility] Comment on above: Order Comment: Speci men Type: BLOOD SPECIMEN Ordering Facility: [facility] Address: [address] [place], [place] [address] Performed By: #### 2 4321-2 #### [facility] CLIA [id number] [address] [place] Calcium [Mass/Vol] 8.4 mg/dL Low 8.5-10.2 [facility] Comment on above: Order Comment: Speci men Type: BLOOD SPECIMEN Ordering Facility: [facility] Address: [address] [place] [address] Performed By: #### 2 4321-2 #### [facility] CLIA [id number] 1 [place] [address] [place] Chloride [Moles/Vol] 98 mmol/L Normal 97-105 [facility] Comment on above: Order Comment: Speci men Type: BLOOD SPECIMEN Ordering Facility: [facility] Address: [address] [place] [address] Performed By: #### 2 4321-2 #### [facility] CLIA [id number] [address] [place] CO2 [Moles/Vol] 30 mmol/L Normal 22-30 [facility] Comment on above: Order Comment: Speci men Type: BLOOD SPECIMEN Ordering Facility: [facility] Address: [address] [place] [address] Performed By: #### 2 4321-2 #### [facility] CLIA [id number] [address] [place] Creatinine [Mass/Vol] 0.66 mg/dL Normal 0.58-0.96 [facility] Comment on above: Order Comment: Speci men Type: BLOOD SPECIMEN Ordering Facility: [facility] Address: [address] [place] [address] Performed By: #### 2 4321-2 #### [facility] CLIA [id number] [address] [place] Creatinine and Glomerular filtration rate.predicted panel (S/P/Bld) 106 mL/min/1.73m??? Normal >=60 [facility] Comment on above: Order Comment: Speci men Type: BLOOD SPECIMEN Ordering Facility: [facility] Address: [address] [place] [address] Result Comment: Crissy mated Glomerular Filtration Rate [...] GFR. Performed By: #### 2 4321-2 #### [facility] CLIA [id number] 1 [place] [address] [place] Glucose [Mass/Vol] 160 mg/dL High 74-99 [facility] Comment on above: Order Comment: Radha tony Type: BLOOD SPECIMEN Ordering Facility: [facility] Address: [address] [place] [address] Result Comment: The [place] Diabetes Association (ADA) provides guidance for cutoff [...] Standards of Medical Care in Diabetes 2016, [place] [employer] Association. Diabetes Care. 2016.39(Suppl 1). Performed By: #### 2 4321-2 #### [facility] CLIA [id number] 1 [place] [address] [place] Potassium [Moles/Vol] 3.7 mmol/L Normal 3.7-5.1 [facility] Comment on above: Order Comment: Radha tony Type: BLOOD SPECIMEN Ordering Facility: [facility] Address: [address] [place] [id number] Performed By: #### 2 4321-2 #### [facility] CLIA [id number] [address] [place] Protein [Mass/Vol] 5.8 g/dL Low 6.3-8.0 [facility] Comment on above: Order Comment: Speci men Type: BLOOD SPECIMEN Ordering Facility: [facility] Address: [address] [place] [address] Performed By: #### 2 4321-2 #### [facility] CLIA [id number] [address] [place] Sodium [Moles/Vol] 134 mmol/L Low 136-144 [facility] Comment on above: Order Comment: Speci men Type: BLOOD SPECIMEN Ordering Facility: [facility] Address: [address] [place] [address] Performed By: #### 2 4321-2 #### [facility] CLIA [id number] [address] [place] [address] [place] Urea nitrogen [Mass/Vol] 13 mg/dL Normal 7-21 [facility] Comment on above: Order Comment: Speci men Type: BLOOD SPECIMEN Ordering Facility: [facility] Address: [address] [place] [address] Performed By: #### 2 4321-2 #### [facility] CLIA [id number] [address] [place] [address] HbA1c (Bld)on 09-04-2023 Average glucose Estimated from glycated hemoglobin (Bld) [Mass/Vol] 272 mg/dL Normal [facility] Comment on above: Order Comment: Speci men Type: BLOOD SPECIMEN Ordering Facility: [facility] Address: [address] [place] [address] Result Comment: eAG: (Estimated average glucose) is a calculated value from HgbA1c and is small business sales representative of the average blood glucose level in the last 2-3 month period. Performed By: #### 2 4321-2 #### [facility] CLIA [id number] [address] [place] HbA1c (Bld) [Mass fraction] 11.1 % High 4.3-5.6 [facility] Comment on above: Order Comment: Speci men Type: BLOOD SPECIMEN Ordering Facility: [facility] Address: [address] [place] [address] Result Comment: Denny [place] Diabetes Association guidelines indicate that patients with HgbA1c in the range 5.7-6.4% are at increased risk for development of diabetes, and intervention by lifestyle modification may be beneficial. HgbA1c greater or equal to 6.5% is considered diagnostic of diabetes. Performed By: #### 2 4321-2 #### [facility] CLIA [id number] [address] THERAPY NTon 09-04-2023 THERAPY NT HNO ID: [id number] Author: EILEEN MACIAS PT Service: Physical Therapy Author Type: Physical Therapist Type: Therapy (PT/OT/Speech/Resp) Filed: 09/04/2023 12:19 Note Text: Physical Therapy Evaluation Summary SERVICE DATE: 09/04/2023 SERVICE TIME: 0930 to 09 ROOM: [place] [address] PT 6 Clicks Score: 10 DISCHARGE RECOMMENDATIONS [...] Required With: Transportation Patient reports being independent [employer], 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 SUBJECTIVE Pleasant and agreeable to PT. THERAPY DIAGNOSIS Reduced mobility-other, Muscle Weakness (generalized), Unsteadiness on feet, Abnormalities of gait and mobility-other, General symptoms and signs-other, Difficulty walking-musculoskeletal TREATMENT INTERVENTIONS Evaluation, Therapeutic Activity (12796) Timed Code Treatment (minutes): 8 Skilled Treatment Time (minutes): 23 $ Evaluation-Moderate (39306) Billed Units: 1 unit Therapeutic Activity (88991) Treatment Minutes: 8 $ Therapeutic Activity (18143) Billed Units: 1 unit Instructed weight bearing [...] [facility] THERAPY NT HNO ID: [id number] Author: LEWIS CARPIO OTR/Gian Service: Occupational Therapy Author Type: Occupational Therapist Type: Therapy (PT/OT/Speech/Resp) Filed: 09/04/2023 09:28 Note Text: Occupational Therapy Evaluation Summary SERVICE DATE: 09/04/2023 SERVICE TIME: 816 to 08 ROOM: [place] [address] OT 6 Clicks Score: 16 DISCHARGE RECOMMENDATIONS [...] Required With: Transportation Patient reports being independent [employer], 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 Sleeps [...] and signs-other TREATMENT INTERVENTIONS Evaluation, Therapeutic Activity (73292) Timed Code Treatment (minutes): 12 Skilled Treatment Time (minutes): 29 $ Evaluation - Moderate (55265) Billed Units: 1 unit Therapeutic Activity (67619) Treatment Minutes: 12 $ Therapeutic Activity (03519) Billed Units: 1 unit TRAINING AND EDUCATION PROVIDED Assistive Device Use, Bed Mobility, Benefits of In-Hospital Mobility, Discharge Planning, Disease Specific Education, Functional Mobility Involving ADLs, Role of Occupational Therapy, Safety/Judgment, Precautions/Restrictions, Standing Balance to Improve Pettis with ADLs/Self-Care, Transfer - Sit to Stand, [...] DATE: September 04, 2023 TIME: 9:26 AM [facility] ANES PRE-OPon 09-03-2023 ANES PRE-OP HNO ID: [id number] Author: MOODY HODGE DO Service: Anesthesiology Author [...] Problems CARDIO (+) Coronary artery disease involving [place] coronary artery of [place] heart without angina pectoris (+) Essential hypertension [...] NOTon 09-03-2023 BRIEF OP NOT HNO ID: [id number] Author: JUANCARLOS ELDRIDGE MD Service: Orthopaedic Surgery Author Type: Resident Type: Brief Op Note Filed: 09/03/2023 13:25 Note Text: BRIEF OPERATIVE / PROCEDURE NOTE LOG ID: [id number] SURGERY/PROCEDURE DATE: 09/03/2023 INCISION/PROCEDURE START TIME: 12:41 PM INCISION CLOSE/PROCEDURE END TIME: SURGEON(S)/PROCEDURALIST( S) AND WEALTH MANAGEMENT MANAGER(S): Surgeon(s) and Role: * Diya May MD [...] Eldridge MD Orthopaedic Surgery 09/03/2023 1:21 PM [facility] Basic metabolic 2000 panelon 09-03-2023 Anion gap [Moles/Vol] 7 mmol/L Low 9-18 [facility] Comment on above: Order Comment: Speci men Type: BLOOD SPECIMEN [facility]ing Facility: [facility] Address: [address] [place] [address] Performed By: #### 5 8410-2 #### [facility] CLIA [id number] [address] [place] Calcium [Mass/Vol] 8.8 mg/dL Normal 8.5-10.2 [facility] Comment on above: Order Comment: Speci men Type: BLOOD SPECIMEN Ordering Facility: [facility] Address: [address] [place] [address] Performed By: #### 5 8410-2 #### [facility] CLIA [id number] [address] [place] Chloride [Moles/Vol] 99 mmol/L Normal 97-105 [facility] Comment on above: Order Comment: Speci men Type: BLOOD SPECIMEN Ordering Facility: [facility] Address: [address] [place] [address] Performed By: #### 5 8410-2 #### [facility] CLIA [id number] [address] [place] CO2 [Moles/Vol] 32 mmol/L High 22-30 [facility] Comment on above: Order Comment: Speci men Type: BLOOD SPECIMEN [facility]ing Facility: [facility] Address: [address] [place] [address] Performed By: #### 5 8410-2 #### [facility] CLIA [id number] [address] [place] Creatinine [Mass/Vol] 0.56 mg/dL Low 0.58-0.96 [facility] Comment on above: Order Comment: Speci men Type: BLOOD SPECIMEN Ordering Facility: [facility] Address: [address] [place] [address] Performed By: #### 5 8410-2 #### [facility] CLIA [id number] [address] [place] Creatinine and Glomerular filtration rate.predicted panel (S/P/Bld) 110 mL/min/1.73m??? Normal >=60 [facility] Comment on above: Order Comment: Radha tony Type: BLOOD SPECIMEN Ordering Facility: [facility] Address: [address] [place] [address] Result Comment: Crissy mated Glomerular Filtration Rate [...] GFR. Performed By: #### 5 8410-2 #### [facility] [facility] CLIA [id number] 1 [place] [address] [place] Glucose [Mass/Vol] 130 mg/dL High 74-99 [facility] Comment on above: Order Comment: Radha tony Type: BLOOD SPECIMEN Ordering Facility: [facility] Address: [address] [place] [address] Result Comment: The [place] Diabetes Association (ADA) provides guidance for cutoff [...] Standards of Medical Care in Diabetes 2016, [place] [employer]. Diabetes Care. 2016.39(Suppl 1). Performed By: #### 5 8410-2 #### [facility] CLIA [id number] 1 [place] [address] [place] Potassium [Moles/Vol] 3.5 mmol/L Low 3.7-5.1 [facility] Comment on above: Order Comment: Speci men Type: BLOOD SPECIMEN Ordering Facility: [facility] Address: [address] [place] [address] Performed By: #### 5 8410-2 #### [facility] CLIA [id number] [address] Sodium [Moles/Vol] 138 mmol/L Normal 136-144 [facility] Comment on above: Order Comment: Speci men Type: BLOOD SPECIMEN Ordering Facility: [facility] Address: [address] [place] [address] Performed By: #### 5 8410-2 #### [facility] CLIA [id number] [address] STATES [facility] Urea nitrogen [Mass/Vol] 6 mg/dL Low 7-21 [facility] Comment on above: Order Comment: Speci men Type: BLOOD SPECIMEN Ordering Facility: [facility] Address: [address] [place] [address] Performed By: #### 5 8410-2 #### [facility] CLIA [id number] [address] OF [facility] CBC panel Auto (Bld)on 09-02 Erythrocyte distribution width (RBC) [Ratio] 13.6 % Normal 11.5-15.0 [facility] Comment on above: Order Comment: Speci men Type: BLOOD SPECIMEN Ordering Facility: [facility] Address: [address] [place] [address] Performed By: #### 5 8410-2 #### [facility] CLIA [id number] [address] Hematocrit (Bld) [Volume fraction] 39.4 % Normal 36.0-46.0 [facility] Comment on above: Order Comment: Speci men Type: BLOOD SPECIMEN Ordering Facility: [facility] Address: [address] [place] [address] Performed By: #### 5 8410-2 #### [facility] CLIA [id number] [address] Hemoglobin (Bld) [Mass/Vol] 13.2 g/dL Normal 11.5-15.5 [facility] Comment on above: Order Comment: Speci men Type: BLOOD SPECIMEN Ordering Facility: [facility] Address: [address] [place] [address] Performed By: #### 5 8410-2 #### [facility] CLIA [id number] [address] MCH (RBC) [Entitic mass] 26.6 pg Normal 26.0-34.0 [facility] Comment on above: Order Comment: Speci men Type: BLOOD SPECIMEN Ordering Facility: [facility] Address: [address] [place] [address] Performed By: #### 5 8410-2 #### [facility] CLIA [id number] [address] MCHC (RBC) [Mass/Vol] 33.5 g/dL Normal 30.5-36.0 [facility] Comment on above: Order Comment: Speci men Type: BLOOD SPECIMEN Ordering Facility: [facility] Address: [address] [place] [address] Performed By: #### 5 8410-2 #### [facility] CLIA [id number] [address] MCV (RBC) [Entitic vol] 79.4 fL Low 80.0-100.0 [facility] Comment on above: Order Comment: Speci men Type: BLOOD SPECIMEN Ordering Facility: [facility] Address: [address] [place] [address] Performed By: #### 5 8410-2 #### [facility] CLIA [id number] [address] Nucleated RBC (Bld) [#/Vol] 10*3/uL Normal <0.01 [facility] Comment on above: Order Comment: Speci men Type: BLOOD SPECIMEN Ordering Facility: [facility] Address: [address] [place] [address] Performed By: #### 5 8410-2 #### [facility] CLIA [id number] [address] Platelet mean volume (Bld) [Entitic vol] 9.6 fL Normal 9.0-12.7 [facility] Comment on above: Order Comment: Speci men Type: BLOOD SPECIMEN Ordering Facility: [facility] Address: [address] [place] [address] Performed By: #### 5 8410-2 #### [facility] CLIA [id number] [address] OF [facility] Platelets (Bld) [#/Vol] 146 10*3/uL Low 150-400 [facility] Comment on above: Order Comment: Speci men Type: BLOOD SPECIMEN Ordering Facility: [facility] Address: [address] [place] [address] Result Comment: No c lot detected. Performed By: #### 5 8410-2 #### [facility] CLIA [id number] [address] RBC (Bld) [#/Vol] 4.96 10*6/uL Normal 3.90-5.20 [facility] Comment on above: Order Comment: Speci men Type: BLOOD SPECIMEN Ordering Facility: [facility] Address: [address] [place] [address] Performed By: #### 5 8410-2 #### [facility] CLIA [id number] [address] OF [facility] WBC (Bld) [#/Vol] 13.08 10*3/uL High 3.70-11.00 [facility] Comment on above: Order Comment: Speci men Type: BLOOD SPECIMEN Ordering Facility: [facility] Address: [address] [place] [address] Performed By: #### 5 8410-2 #### [facility] CLIA [id number] [address] CONFIRM BLOOD TYPEon 024 ABO O Normal [facility] Comment on above: Order Comment: Speci men Type: BLOOD SPECIMEN Ordering Facility: [facility] Address: [address] [place] [id number] Performed By: #### 5 8410-2 #### [facility] CLIA [id number] [address] Rh Nom (Bld) Positive Normal [facility] Comment on above: Order Comment: Speci men Type: BLOOD SPECIMEN Ordering Facility: [facility] Address: [address] [place] [address] Performed By: #### 5 8410-2 #### [facility] CLIA [id number] [address] CONSULTon 09-03-2023 CONSULT HNO ID: [id number] Author: NATO RIVERA MD Service: Clinical Cardiology [...] anxiety Prior cardiac hx: - Severe CAD ([facility] showed severe single vessel proximal to mid LAD diffuse disease in [place], [facility] of high risk PCI [...] CC echocardiographic exam performed on 03/10/2017 (ECHO) [facility] 12/2017: 1. Single-vessel coronary artery disease with a long segment of severe diffuse narrowing in the proximal and midportion of the LAD. Another stenosis in the distal portion. 2. Normal right and circumflex coronary arteries. 3. Normal left heart filling pressures. 4. No evidence of aortic stenosis. 5. The patient will be transferred to [facility] for assessment of myocardial viability and consideration [...] Speci men Type: BLOOD SPECIMEN Ordering Facility: [facility] Address: [address] [place] [address] Result Comment: When assessing risk for acute [...] 30 day MACE. Performed By: #### L [id number] #### [facility] CLIA [id number] [address] OF [facility] HIGH SENSITIVITY TROPONIN T (THIRD) 3 HRS AFTER INITIALon 09-03-2023 Troponin T.cardiac High sensitivity method [Mass/Vol] 63 ng/L High <12 [facility] Comment on above: Order Comment: Speci men Type: BLOOD SPECIMEN Ordering Facility: [facility] Address: [address] [place] [address] Result Comment: When assessing risk for acute [...] MACE. Performed By: #### 5 8410-2 #### [facility] CLIA [id number] [address] OPERATIVE NOon 09-03-2023 OPERATIVE NO HNO ID: [id number] Author: DIYA MAY MD Service: Orthopaedic Surgery Author Type: Physician Type: Operative Report Filed: 09/03/2023 17:02 Note Text: OPERATIVE/PROCEDURE REPORT LOG ID: [id number] SURGERY/PROCEDURE DATE: 09/03/2023 INCISION/PROCEDURE START TIME: 12:41 PM INCISION CLOSE/PROCEDURE END TIME: 1:21 PM SURGEON(S)/PROCEDURALIST( S) AND WEALTH MANAGEMENT MANAGER(S): Surgeon(s) and Role: * Diya May MD - Primary * Juancarlos Eldridge MD - Resident - Assisting * Jerry Murray MD - Resident - Assisting No Additional Staff PRE-OP/PRE-PROCEDURE DIAGNOSIS: 1) Right intertrochanteric femur fracture POST-OP/POST-PROCEDURE DIAGNOSIS: 1) Same SURGERY/PROCEDURE(S): 1) Insertion of a Right Hip Intramedullary Femoral Nail for an Intertrochanteric Femur Fracture (CPT 88875) ANESTHESIA: 1) Choice - Anesthesia Consult ANTIBIOTICS: 1) Ancef 2g IV Ancef, 1g IV Vancomycin ESTIMATED BLOOD LOSS: 1) 100 CC SPECIMENS: 1) None CLINICAL INDICATIONS: 53 year old female presented to [facility] for evaluation after a fall. The patient [...] time-out was then conducted in accordance with [facility] General policy. Incision along hip was performed [...] Implant Name Type Inv. Item Serial No. Clay Structure Builder And Servicer Lot No. LRB No. Used Action NAIL TFN-ADVANCED 125D SHORT GREEN TITANIUM 170MM INTRAMEDULLARY CANNULATED - [id number] Nail NAIL TFN-ADVANCED 125D SHORT GREEN TITANIU (more content not included)... Normal [facility] THERAPY NTon 09-03-2023 THERAPY NT HNO ID: [id number] Author: LEWIS CARPIO OTR/Gian Service: Occupational Therapy Author Type: Occupational Therapist Type: Therapy (PT/OT/Speech/Resp) Filed: 09/03/2023 07:59 Note Text: OCCUPATIONAL THERAPY MISSED VISIT SERVICE DATE: 09/03/2023 SERVICE TIME: (P) 0759 ROOM: [place] [address] Patient not seen due to (P) Test / Procedure. OR today, will follow. SIGNATURE: LARRY Crocker/Gian PATIENT NAME: Trenton Jackson DATE: September 03, 2023 TIME: 7:59 AM Normal [facility] XR HIP 2V AP/LAT RTon 2023 XR HIP 2V AP/LAT RT * * *Final Report* * * DATE OF EXAM: Sep 03 2023 1:16PM [facility] 5280 - XR HIP 2V AP/LAT RT [...] reduction internal fixation right intertrochanteric femur fracture. Washing Machine Installer: GEORGE Transcribe Date/Time: Sep 03 2023 1:33P Dictated by : JIMY ROMERO MD This examination was interpreted and the report reviewed and electronically signed by: JIMY ROMERO MD on Sep 03 2023 1:34PM EST [id number] [facility] XR PELVIS 1V APon 09-03-2023 [...] AP view of the pelvis shows intramedullary kerlnie and femoral neck screw bridging right intertrochanteric femur fracture. Postsurgical changes are seen in the adjacent soft tissues. Normal alignment at the level the left hip. IMPRESSION: Status post open reduction internal fixation of right intertrochanteric femur fracture. Washing Machine Installer: [facility] Transcribe Date/Time: Sep 03 2023 2:42P Dictated by : JIMY ROMERO MD This examination was interpreted and the report reviewed and electronically signed by: JIMY ROMERO MD on Sep 03 2023 2:43PM EST [id number] [facility] ALLIED HEALTHon 09-02-2023 ALLIED HEALTH HNO ID: [id number] Author: TERE HORNER Chaplain Service: ? Author Type: Laundry Aid Type: Allied Health Filed: 09/02/2023 11:46 Note Text: SPIRITUAL CARE PROGRESS NOTE SERVICE DATE: 09/02/2023 SERVICE TIME: 11:45 am Laundry Aid called ED upon receiving page to inquire about family of patient. No family were present at the time. Should needs arise for patient or family, please call spiritual care. To contact the Spiritual Care Department: Please call [phone]. SIGNATURE: Chaplain Christiano PATIENT NAME: Trenton Jackson DATE: September 02, 2023 TIME: 11:45 AM PAGER/CONTACT #: [phone] Normal [facility] Absolute lymphocyte countOrd ered By: Griselda Christina on 09-02-2023 Lymphocytes Auto (Unsp spec) [#/Vol] 1.79 10*3/uL 0.83-4.51 [facility] Activated partial thrombopla stin time (aPTT) in platelet poor plasma by coagulation aOrdered By: Griselda Christina on 09-02-2023 aPTT Coag (PPP) [Time] 25.5 s 24.1-36.2 [facility] Automated lymphocyte count a s percentage of total leukocytesOrdered By: Griselda Christina on 09-02-2023 Lymphocytes/100 WBC Auto (Unsp spec) 18.9 % 19-41 [facility] Basophil percentageOrdered B y: Griselda Christina on 09-02-2023 Basophils/100 WBC (Bld) 0.7 % 0-1 [facility] Chloride [Moles/Vol] 102 mmol/L 98-107 [facility] Eosinophils/100 WBC (Bld) 3.9 % 0-5 [facility] Glucose [Mass/Vol] 306 mg/dL 74-106 [facility] Comment on above: Glucose result great er than or equal to 200 mg/dLsuggests DIABETES MELLITUS per A.D.A. criteria. Hemoglobin (Bld) [Mass/Vol] 14.4 g/dL 12.0-15.0 [facility] Monocytes/100 WBC (Bld) 5.2 % 0-10 [facility] Neutrophils (Bld) [#/Vol] 6.5 10*3/uL 2.0-7.7 [facility] Neutrophils/100 WBC (Bld) 69.1 % 47-70 [facility] Potassium [Moles/Vol] 3.3 mmol/L 3.5-5.1 [facility] Sodium [Moles/Vol] 136 mmol/L 136-145 [facility] WBC (Bld) [#/Vol] 9.5 10*3/uL 4.4-11.0 [facility] CBC panel Auto (Bld)on 09-01 Erythrocyte distribution width (RBC) [Ratio] 13.6 % Normal 11.5-15.0 [facility] Comment on above: Order Comment: Speci men Type: BLOOD SPECIMEN Ordering Facility: [facility] Address: [address] [place] [address] Performed By: #### 2 4321-2 #### [facility] CLIA [id number] [address] Hematocrit (Bld) [Volume fraction] 42.9 % Normal 36.0-46.0 [facility] Comment on above: Order Comment: Speci men Type: BLOOD SPECIMEN Ordering Facility: [facility] Address: [address] [place] [address] Performed By: #### 2 4321-2 #### [facility] CLIA [id number] [address] Hemoglobin (Bld) [Mass/Vol] 14.4 g/dL Normal 11.5-15.5 [facility] Comment on above: Order Comment: Speci men Type: BLOOD SPECIMEN Ordering Facility: [facility] Address: [address] [place] [address] Performed By: #### 2 4321-2 #### [facility] CLIA [id number] [address] MCH (RBC) [Entitic mass] 26.7 pg Normal 26.0-34.0 [facility] Comment on above: Order Comment: Speci men Type: BLOOD SPECIMEN Ordering Facility: [facility] Address: [address] [place] [address] Performed By: #### 2 4321-2 #### [facility] CLIA [id number] [address] MCHC (RBC) [Mass/Vol] 33.6 g/dL Normal 30.5-36.0 [facility] Comment on above: Order Comment: Speci men Type: BLOOD SPECIMEN Ordering Facility: [facility] Address: [address] [place] [address] Performed By: #### 2 4321-2 #### [facility] CLIA [id number] [address] [place] MCV (RBC) [Entitic vol] 79.4 fL Low 80.0-100.0 [facility] Comment on above: Order Comment: Speci men Type: BLOOD SPECIMEN Ordering Facility: [facility] Address: [address] [place] [address] Performed By: #### 2 4321-2 #### [facility] CLIA [id number] [address] Nucleated RBC (Bld) [#/Vol] 10*3/uL Normal <0.01 [facility] Comment on above: Order Comment: Speci men Type: BLOOD SPECIMEN Ordering Facility: [facility] Address: [address] [place] [address] Performed By: #### 2 4321-2 #### [facility] CLIA [id number] [address] [place] Platelet mean volume (Bld) [Entitic vol] 9.2 fL Normal 9.0-12.7 [facility] Comment on above: Order Comment: Speci men Type: BLOOD SPECIMEN Ordering Facility: [facility] Address: [address] [place] [address] Performed By: #### 2 1-2 #### [facility] CLIA [id number] [address] [place] Platelets (Bld) [#/Vol] 172 10*3/uL Normal 150-400 [facility] Comment on above: Order Comment: Speci men Type: BLOOD SPECIMEN Ordering Facility: [facility] Address: [address] [place] [address] Performed By: #### 2 1-2 #### [facility] CLIA [id number] [address] [place] RBC (Bld) [#/Vol] 5.40 10*6/uL High 3.90-5.20 [facility] Comment on above: Order Comment: Speci men Type: BLOOD SPECIMEN Ordering Facility: [facility] Address: [address] [place] [address] Performed By: #### 2 4321-2 #### [facility] CLIA [id number] [address] OF [facility] WBC (Bld) [#/Vol] 15.50 10*3/uL High 3.70-11.00 [facility] Comment on above: Order Comment: Speci men Type: BLOOD SPECIMEN Ordering Facility: [facility] Address: [address] [place] [address] Performed By: #### 2 4321-2 #### [facility] CLIA [id number] [address] CONSULTon 09-02-2023 CONSULT HNO ID: [id number] Author: DIYA MAY MD Service: Orthopaedic Surgery [...] as a level II trauma activation to [facility] ED as a transfer from [facility] on 09/02/2023 for evaluation of right hip pain. The patient endorses a ground level fall in her bathroom with subsequent immediate and severe right hip pain and the inability to ambulate. She was brought to [facility] and was found to have a [...] DATE OF EXAM: Sep 02 2023 11:41AM [facility] 0530 - CT ABD/PEL W [...] thorax: A CT chest is reported separately. [employer] (topogram) images: No additional findings. IMPRESSION: Right-sided [...] be communicated with the ordering provider via [employer] staff message or phone message by [employer] within 2 business days of report finalization. --END OF FINDING-- Washing Machine Installer: GEORGE Transcribe Date/Time: Sep 02 2023 12:26P [...] DATE OF EXAM: Sep 02 2023 11:39AM [facility] 0504 - CT BRAIN WO IVCON / PROCEDURE REASON: Head trauma, coagulopathy (Age 19-64y) * * * * Physician Interpretation * * * * EXAMINATION: CT CERVICAL SPINE WO IVCON, CT BRAIN WO IVCON CLINICAL HISTORY: Spine fracture, cervical, traumatic (accession [id number]), Head trauma, coagulopathy (Age 19-64y) (accession [id number]) TECHNIQUE: Serial axial images without IV contrast [...] sinuses and mastoid air cells are clear. [employer] (topogram) images: Unremarkable. CERVICAL SPINE: Counting reference: Craniocervical junction. Anatomic Variants: None. [employer] (topogram) images: Unremarkable. Alignment: Alignment is anatomic. [...] vertebrae with counting from the craniocervical junction. Washing Machine Installer: PSCB Transcribe Date/Time: Sep 02 2023 11:52A [...] DATE OF EXAM: Sep 02 2023 11:39AM [facility] 0505 - CT CERVICAL SPINE WO IVCON / PROCEDURE REASON: Spine fracture, cervical, traumatic * * * * Physician Interpretation * * * * EXAMINATION: CT CERVICAL SPINE WO IVCON, CT BRAIN WO IVCON CLINICAL HISTORY: Spine fracture, cervical, traumatic (accession [id number]), Head trauma, coagulopathy (Age 19-64y) (accession [id number]) TECHNIQUE: Serial axial images without IV contrast [...] sinuses and mastoid air cells are clear. [employer] (topogram) images: Unremarkable. CERVICAL SPINE: Counting reference: Craniocervical junction. Anatomic Variants: None. [employer] (topogram) images: Unremarkable. Alignment: Alignment is anatomic. [...] vertebrae with counting from the craniocervical junction. Washing Machine Installer: GEORGE Transcribe Date/Time: Sep 02 2023 11:52A Dictated by : RAYMUNDO MULLINS MD This examination was interpreted and the report reviewed and electronically signed by: RAYMUNDO MULLINS MD on Sep 02 2023 12:19PM EST [id number] Normal [facility] CT CHEST W IVCONon 4 CT CHEST W IVCON * * *Final Report* * * DATE OF EXAM: Sep 02 2023 11:41AM [facility] 0539 - CT CHEST W [...] abdomen: A CT abdomen is reported separately. [employer] (topogram) images: No additional findings. IMPRESSION: Findings suggesting mild pulmonary edema. Similar small and mild prominent mediastinal and hilar lymph nodes considered likely reactive. Appropriate follow-up is recommended as indicated. Similar nodular densities seen in profile with the left major fissure. Small pericardial effusion. Stable left pericardial cyst. Washing Machine Installer: GEORGE Transcribe Date/Time: Sep 02 2023 12:42P [...] Speci men Type: BLOOD SPECIMEN Ordering Facility: [facility] Address: [address] [place] [address] Performed By: #### 5 8410-2 #### [facility] CLIA [id number] [address] STATES OF [facility] ALP [Catalytic activity/Vol] 119 U/L Normal 34-123 [facility] Comment on above: Order Comment: Speci men Type: BLOOD SPECIMEN Ordering Facility: [facility] Address: [address] [place] [address] Performed By: #### 5 8410-2 #### [facility] CLIA [id number] [address] [place] ALT With P-5'-P [Catalytic activity/Vol] 20 U/L Normal 7-38 [facility] Comment on above: Order Comment: Speci men Type: BLOOD SPECIMEN Ordering Facility: [facility] Address: [address] [place] [address] Performed By: #### 5 8410-2 #### [facility] CLIA [id number] [address] [place] OF [facility] Anion gap [Moles/Vol] 13 mmol/L Normal 9-18 [facility] Comment on above: Order Comment: Speci men Type: BLOOD SPECIMEN Ordering Facility: [facility] Address: [address] [place] [address] Performed By: #### 5 8410-2 #### [facility] CLIA [id number] [address] [place] AST With P-5'-P [Catalytic activity/Vol] 21 U/L Normal 13-35 [facility] Comment on above: Order Comment: Speci men Type: BLOOD SPECIMEN Ordering Facility: [facility] Address: [address] [place] [address] Performed By: #### 5 8410-2 #### [facility] CLIA [id number] [address] [place] [address] [place] Bilirubin [Mass/Vol] 0.8 mg/dL Normal 0.2-1.3 [facility] Comment on above: Order Comment: Speci men Type: BLOOD SPECIMEN Ordering Facility: [facility] Address: [address] [place] [address] Performed By: #### 5 8410-2 #### [facility] CLIA [id number] [address] [place] Calcium [Mass/Vol] 9.0 mg/dL Normal 8.5-10.2 [facility] Comment on above: Order Comment: Speci men Type: BLOOD SPECIMEN Ordering Facility: [facility] Address: [address] [place] [address] Performed By: #### 5 8410-2 #### [facility] CLIA [id number] [address] [place] [address] [place] Chloride [Moles/Vol] 94 mmol/L Low 97-105 [facility] Comment on above: Order Comment: Speci men Type: BLOOD SPECIMEN Ordering Facility: [facility] Address: [address] [place] [address] Performed By: #### 5 8410-2 #### [facility] CLIA [id number] 1 [place] [address] [place] CO2 [Moles/Vol] 28 mmol/L Normal 22-30 [facility] Comment on above: Order Comment: Speci men Type: BLOOD SPECIMEN Ordering Facility: [facility] Address: [address] [place] [address] Performed By: #### 5 8410-2 #### [facility] CLIA [id number] [address] STATES OF [facility] Creatinine [Mass/Vol] 0.56 mg/dL Low 0.58-0.96 [facility] Comment on above: Order Comment: Speci men Type: BLOOD SPECIMEN Ordering Facility: [facility] Address: [address] [place] [address] Performed By: #### 5 8410-2 #### [facility] CLIA [id number] [address] Creatinine and Glomerular filtration rate.predicted panel (S/P/Bld) 110 mL/min/1.73m??? Normal >=60 [facility] Comment on above: Order Comment: Speci men Type: BLOOD SPECIMEN Ordering Facility: [facility] Address: [address] [place] [address] Result Comment: Crissy mated Glomerular Filtration Rate [...] GFR. Performed By: #### 5 8410-2 #### [facility] CLIA [id number] [address] [place] [address] [place] Glucose [Mass/Vol] 312 mg/dL High 74-99 [facility] Comment on above: Order Comment: Speci men Type: BLOOD SPECIMEN Ordering Facility: [facility] Address: [address] [place] [address] Result Comment: The [place] [employer] (ADA) provides guidance for cutoff [...] Standards of Medical Care in Diabetes 2016, [place] [employer]. Diabetes Care. 2016.39(Suppl 1). Performed By: #### 5 8410-2 #### [facility] CLIA [id number] [address] [place] [address] [place] Potassium [Moles/Vol] 3.7 mmol/L Normal 3.7-5.1 [facility] Comment on above: Order Comment: Speci men Type: BLOOD SPECIMEN Ordering Facility: [facility] Address: [address] [place] [address] Performed By: #### 5 8410-2 #### [facility] CLIA [id number] 1 [place] [address] [place] Protein [Mass/Vol] 7.2 g/dL Normal 6.3-8.0 [facility] Comment on above: Order Comment: Speci men Type: BLOOD SPECIMEN Ordering Facility: [facility] Address: [address] [place] [address] Performed By: #### 5 8410-2 #### [facility] CLIA [id number] [address] [place] Sodium [Moles/Vol] 135 mmol/L Low 136-144 [facility] Comment on above: Order Comment: Speci men Type: BLOOD SPECIMEN Ordering Facility: [facility] Address: [address] [place] [address] Performed By: #### 5 8410-2 #### [facility] CLIA [id number] 1 [place] [address] [place] Urea nitrogen [Mass/Vol] 5 mg/dL Low 7-21 [facility] Comment on above: Order Comment: Speci men Type: BLOOD SPECIMEN Ordering Facility: [facility] Address: [address] [place] [address] Performed By: #### 5 8410-2 #### [facility] CLIA [id number] 1 [place] [address] [place] Determination of erythrocyte mean corpuscular volume (MCV)Ordered By: Griselda Christina on 09-02-2023 MCV (RBC) [Entitic vol] 79.9 fL 81-99 [facility] ECG COMPLETEon 09-02-2023 ECG COMPLETE Ventricular Rate : 1 09 BPM Atrial Rate : 109 BPM P-R Interval : 168 ms QRS Duration : 128 ms Q-T Interval : 364 ms QTC Calculation(Bazett) : 490 ms Calculated P [place] : 46 degrees Calculated R [place] : -45 degrees Calculated T [place] : 97 degrees SINUS TACHYCARDIA POSSIBLE LEFT ATRIAL ENLARGEMENT LEFT AXIS DEVIATION LEFT VENTRICULAR HYPERTROPHY WITH QRS WIDENING ( Bowlegs product ) CANNOT RULE OUT SEPTAL INFARCT , AGE UNDETERMINED T WAVE ABNORMALITY, CONSIDER LATERAL ISCHEMIA ABNORMAL ECG NO PREVIOUS ECGS AVAILABLE Confirmed by WELLINGTON SPANN ([id number]) on 02/27/2024 5:10:44 PM NAME : TRENTON JACKSON PID : [id number] : 1970 Gender : Female Race : ORD : [id number] Procedure Date : Sep 02 2023 12:10:42 Edit Date : Feb 27 2024 17:10:48 Diagnosis: SINUS TACHYCARDIA POSSIBLE LEFT ATRIAL ENLARGEMENT LEFT AXIS DEVIATION LEFT VENTRICULAR HYPERTROPHY WITH QRS WIDENING ( Brian product ) CANNOT RULE OUT SEPTAL INFARCT , AGE UNDETERMINED T WAVE ABNORMALITY, CONSIDER LATERAL ISCHEMIA ABNORMAL ECG NO PREVIOUS ECGS AVAILABLE Confirmed by WELLINGTON SPANN ([id number]) on 02/27/2024 5:10:44 PM Test Reason : Chest Pain Location : 4 : [facility] EM Overread By : WELLINGTON SPANN Edited By : WELLINGTON SPANN Referred By : , Acquired by : VIKTOR ART [facility] ED NOTEon 09-02-2023 ED NOTE HNO ID: [id number] Author: TESS LA RN Service: Emergency Medicine Author Type: Registered Nurse Type: ED Notes Filed: 09/02/2023 13:10 Note Text: Unable to obtain blood draw, aware. [facility] ED NOTE HNO ID: [id number] Author: TESS LA RN Service: Emergency Medicine Author Type: Registered Nurse Type: ED Notes Filed: 09/02/2023 12:53 Note Text: Resident aware of need for pain and nausea meds per pt request Normal [facility] ED NOTE HNO ID: [id number] Author: TESS LA RN Service: Emergency Medicine Author Type: Registered Nurse Type: ED Notes Filed: 09/02/2023 12:19 Note Text: Trauma rns unable to obtain blood, US verified RN able to place US PIV at this time. Normal [facility] ED NOTE HNO ID: [id number] Author: TESS LA, CHAYITO Service: Emergency Medicine Author Type: Registered Nurse Type: ED Notes Filed: 09/02/2023 11:56 Note Text: Ortho MD at bedside Normal [facility] ED NOTE HNO ID: [id number] Author: MILADIS ESPINOSA, CHAYITO Service: ? Author Type: Registered Nurse Type: ED Notes Filed: 09/02/2023 11:38 Note Text: Bed: 19-ED Expected date: Expected time: Means of arrival: Comments: T2 Normal [facility] ED NOTE HNO ID: [id number] Author: PENNIE MEDINA RN Service: Emergency Medicine Author Type: Registered Nurse Type: ED Notes Filed: 09/02/2023 11:22 Note Text: To CT Normal [facility] ED NOTE HNO ID: [id number] Author: PENNIE MEDINA RN Service: Emergency Medicine Author Type: Registered Nurse Type: ED Notes Filed: 09/02/2023 11:22 Note Text: Blood bank and OR called Normal [facility] Erythrocyte distribution wid th ratioOrdered By: Griselda Christina on 09-02-2023 Erythrocyte distribution width (RBC) [Ratio] 13.7 % 11.6-14.6 [facility] Erythrocyte distribution wid th standard deviationOrdered By: Griselda Christina on 09-02-2023 Erythrocyte distribution width (RBC) [Entitic vol] 39.7 fL 35.1-43.9 [facility] Ethanol SerPl-mCncon 024 Ethanol [Mass/Vol] mg/dL Normal <11 [facility] Comment on above: Order Comment: Speci men Type: BLOOD SPECIMEN Ordering Facility: [facility] Address: [address] [place] [address] Performed By: #### 5 8410-2 #### [facility] CLIA [id number] [address] HCG QUAL BLDon 09-02-2023 HCG, QUALITATIVE Negative Normal Negative [facility] Comment on above: Order Comment: Speci men Type: BLOOD SPECIMEN Ordering Facility: [facility] Address: [address] [place] [address] Performed By: #### 2 4321-2 #### [facility] CLIA [id number] [address] HIGH SENSITIVITY TROPONIN T (INITIAL)on 09-02-2023 Troponin T.cardiac High sensitivity method [Mass/Vol] 40 ng/L High <12 [facility] Comment on above: Order Comment: Speci men Type: BLOOD SPECIMEN Ordering Facility: [facility] Address: [address] [place] [address] Result Comment: When assessing risk for acute [...] MACE. Performed By: #### 2 4321-2 #### [facility] CLIA [id number] [address] HISTORY PHYSICALon HISTORY PHYSICAL HNO ID: [id number] Author: FREDA MACEDO MD Service: General Surgery [...] Xarelto although patient denies), HTN, HLD, GERD, LA, RA, seizures, GWYN, tobacco abuse, polysubstance abuse, prior incisional hernia repair, who presents as trauma transfer from [place]. Per EMS, patient feel on the wet bathroom and landed on her right hip. GCS at Scene was 15. On arrival, patient is moaning in pain. She is neurologically intact and HDS. She has obvious pain to the right hip. At [facility], CXR and PXR showed chronic CHF and [...] Hematocrit (Bld) [Volume fraction] 44.5 % 37-47 [facility] Immature granulocytes/100 WB C Auto (Bld)Ordered By: Griselda Christina on 09-02-2023 Immature granulocytes/100 WBC (Bld) 2.200 % 0.0-0.9 [facility] Comment on above: IG% - Immature Granu locytes (promyelocytes, myelocytes and metamyelocytes) > 1% indicates that a LEFT SHIFT is Present. Laboratory - Chemistry and C hemistry - challengeOrdered By: Griselda Christina on 09-02-2023 CO2 [Moles/Vol] 28.0 mmol/L 21.0-32.0 [facility] Urea nitrogen/Creatinine [Mass ratio] 6.6 mg/mg 10-20 [facility] Laboratory - CoagulationOrde red By: Griselda Christina on 09-02-2023 INR Coag (Bld) [Relative time] 0.9 {INR} [facility] PT Coag (PPP) [Time] 11.8 s 11.7-14.9 [facility] Laboratory - Hematology and Cell countsOrdered By: Griselda Christina on 09-02-2023 MCH (RBC) [Entitic mass] 25.9 pg 27.0-32.0 [facility] MCHC (RBC) [Mass/Vol] 32.4 g/dL 32-36 [facility] Nucleated RBC/100 WBC (Bld) [Ratio] 0 % 0-5 [facility] Platelet mean volume (Bld) [Entitic vol] 9.3 fL 6.2-12.0 [facility] Platelets (Bld) [#/Vol] 191 10*3/uL 150-450 [facility] Lipase SerPl-cCncon 09-02-19 24 Lipase [Catalytic activity/Vol] 17 U/L Normal 16-61 [facility] Comment on above: Order Comment: Speci men Type: BLOOD SPECIMEN Ordering Facility: [facility] Address: [address] [place] [address] Performed By: #### 5 8410-2 #### [facility] CLIA [id number] 1 [place] [address] [place] NT-proBNP SerPl-mCncon 09-01 Natriuretic peptide.B prohormone N-Terminal [Mass/Vol] 4315 pg/mL High <125 [facility] Comment on above: Order Comment: Radha tony Type: BLOOD SPECIMEN Ordering Facility: [facility] Address: [address] [place] [address] [place] [address] Performed By: #### 5 8410-2 #### [facility] CLIA [id number] [address] NURSING PROGon 09-02-2023 NURSING PROG HNO ID: [id number] Author: DANI LAGOS, RN Service: Nursing Author Type: Registered Nurse Type: Nursing Progress Note Filed: 09/02/2023 14:35 Note Text: Other: Dr. Kingston made aware that second troponin unable to be obtained due to multiple sticks and IV unable to draw any blood. Normal [facility] No Panel InformationOrdered By: Griselda Christina on 09-02-2023 Estimated Creatinine Clearance Calc 97.60 ml/min [facility] Estimated GFR (MDRD) Amer 102 mL/min >60 [facility] Comment on above: GFR Calc Estimated GFR (MDRD) Non-Af Amer 85 mL/min >60 [facility] Comment on above: Non- GFR Calc PT panel Coag (PPP)on 2023 INR Coag (PPP) [Relative time] 1.0 {INR} Normal 0.9-1.3 [facility] Comment on above: Order Comment: Radha tony Type: BLOOD SPECIMEN Ordering Facility: [facility] Address: [address] [place] [address] Result Comment: Charissa min K Antagonist (VKA) Therapeutic Range: INR 2 to 3 (Target INR of 2.5) Note: For patients treated with VKA drugs, such as warfarin, the [place] [employer] 2012 Guideline recommends [...] Chest 2012, 141:7S-47S Sampson SOMMERS et al. [facility] 2017, 70: 252-289 Performed By: #### 3 4528-0, 32511-6 #### [facility] CLIA [id number] [address] [place] PT Coag (PPP) [Time] 10.3 s Normal 9.7-13.0 [facility] Comment on above: Order Comment: Speci men Type: BLOOD SPECIMEN Ordering Facility: [facility] Address: [address] [place] [address] [place] [address] Performed By: #### 3 4528-0, 31316-9 #### [facility] CLIA [id number] [address] [place] [id number] [place] RBC Auto (Bld) [#/Vol]Ordere d By: Griselda Christina on 09-02-2023 RBC (Bld) [#/Vol] 5.57 10*6/uL 4.2-5.4 [facility] Serum or plasma calcium xiomara urement (mass/volume)Ordered By: Griselda Christina on 09-02-2023 Calcium [Mass/Vol] 9.1 mg/dL 8.5-10.1 [facility] Serum or plasma creatinine m easurement (mass/volume)Ordered By: Griselda Christina on 09-02-2023 Creatinine [Mass/Vol] 0.76 mg/dL 0.55-1.02 [facility] Comment on above: The validity of the calculated GFR & GFRAA in patients over 70 years has not been determined. Clinical correlation is essential. Serum or plasma urea nitroge n measurement (mass/volume)Ordered By: Griselda Christina on 09-02-2023 Urea nitrogen [Mass/Vol] 5 mg/dL 7-18 [facility] TOX SCREEN ROUT URon 024 Amphetamines Confirm (U) [Mass/Vol] Negative Normal Negative [facility] Comment on above: Order Comment: Speci men Type: URINE SPECIMEN Ordering Facility: [facility] Address: [facility] [place] [address] Result Comment: Cuto ff threshold at 1000 ng/mL. Performed By: #### U TOX2 #### [facility] CLIA [id number] [address] BARBITURATES, URINE Negative Normal Negative [facility] Comment on above: Order Comment: Speci men Type: URINE SPECIMEN Ordering Facility: [facility] Address: [address] [place] [address] Result Comment: Cuto ff threshold at 200 ng/mL. Performed By: #### U TOX2 #### [facility] CLIA [id number] [address] [place] BENZODIAZEPINES, UR Negative Normal Negative [facility] Comment on above: Order Comment: Speci men Type: URINE SPECIMEN Ordering Facility: [facility] Address: [address] [place] [address] Result Comment: Cuto ff threshold at 200 ng/mL. Performed By: #### U TOX2 #### [facility] CLIA [id number] [address] Cannabinoids Screen Ql (U) Positive Abnormal Negative [facility] Comment on above: Order Comment: Speci men Type: URINE SPECIMEN Ordering Facility: [facility] Address: [address] [place] [address] Result Comment: Cuto ff threshold at 50 ng/mL. Performed By: #### U TOX2 #### [facility] CLIA [id number] [address] [place] Cocaine Ql (U) Negative Normal Negative [facility] Comment on above: Order Comment: Speci men Type: URINE SPECIMEN Ordering Facility: [facility] Address: [address] [place] [address] Result Comment: Cuto ff threshold at 300 ng/mL. Performed By: #### U TOX2 #### [facility] CLIA [id number] [address] [place] Ethanol (U) [Mass/Vol] <11 Normal <11 [facility] Comment on above: Order Comment: Speci men Type: URINE SPECIMEN Ordering Facility: [facility] Address: [address] [place] [address] Performed By: #### U TOX2 #### [facility] CLIA [id number] [address] Opiates Screen Ql (U) Positive Abnormal Negative [facility] Comment on above: Order Comment: Speci men Type: URINE SPECIMEN Ordering Facility: [facility] Address: [address] [place] [address] Result Comment: Cuto ff threshold at 300 ng/mL. Performed By: #### U TOX2 #### [facility] CLIA [id number] [address] oxyCODONE cutoff Screen (U) [Mass/Vol] Negative Normal Negative [facility] Comment on above: Order Comment: Speci men Type: URINE SPECIMEN Ordering Facility: [facility] Address: [address] [place] [address] Result Comment: Cuto ff threshold at 100 ng/mL. Performed By: #### U TOX2 #### [facility] CLIA [id number] [address] Phencyclidine Ql (U) Negative Normal Negative [facility] Comment on above: Order Comment: Speci men Type: URINE SPECIMEN Ordering Facility: [facility] Address: [address] [place] [address] Result Comment: Cuto ff threshold at 25 ng/mL. Performed By: #### U TOX2 #### [facility] CLIA [id number] [address] OF [facility] TYPE + SCREENon 09-02-2023 ABO O Normal [facility] Comment on above: Order Comment: Speci men Type: BLOOD SPECIMEN Ordering Facility: [facility] Address: [address] [place] [address] Performed By: #### 5 8410-2 #### [facility] CLIA [id number] [address] HISTORICAL AB SCR STATUS Negative Normal [facility] Comment on above: Order Comment: Speci men Type: BLOOD SPECIMEN Ordering Facility: [facility] Address: [address] [place] [address] Performed By: #### 5 8410-2 #### [facility] CLIA [id number] [address] [place] Rh Nom (Bld) Positive Normal [facility] Comment on above: Order Comment: Speci men Type: BLOOD SPECIMEN Ordering Facility: [facility] Address: [address] [place] [address] Performed By: #### 5 8410-2 #### [facility] CLIA [id number] [address] TYPE AND SCREEN EXPIRATION 09/05/2023 23:59 Normal [facility] Comment on above: Order Comment: Speci men Type: BLOOD SPECIMEN Ordering Facility: [facility] Address: [address] [place] [address] Performed By: #### 5 8410-2 #### [facility] CLIA [id number] [address] OF [facility] Thin prep Papanicolaou smear with manual screeningOrdered By: Griselda Christina on 09-02-2023 Thin prep Papanicolaou smear with manual screening 6 5-15 [facility] Urinalysis complete panel (U )on 09-02-2023 Bacteria LM.HPF (Urine sed) [#/Area] Rare Abnormal None Seen [facility] Comment on above: Order Comment: Speci men Type: URINE SPECIMEN Ordering Facility: [facility] Address: [address] [place] [address] Performed By: #### 2 4356-8 #### [facility] CLIA [id number] [address] OF [place] Bilirubin Ql (U) Negative Normal Negative [facility] Comment on above: Order Comment: Speci men Type: URINE SPECIMEN Ordering Facility: [facility] Address: [address] [place] [address] Performed By: #### 2 4356-8 #### [facility] CLIA [id number] [address] [place] Clarity (Unsp spec) Clear Normal Clear [facility] Comment on above: Order Comment: Speci men Type: URINE SPECIMEN Ordering Facility: [facility] Address: [address] [place] [address] Performed By: #### 2 4356-8 #### [facility] CLIA [id number] [address] [place] Color (U) Light Yellow Normal yellow [facility] Comment on above: Order Comment: Speci men Type: URINE SPECIMEN Ordering Facility: [facility] Address: [address] [place] [address] Performed By: #### 2 4356-8 #### [facility] CLIA [id number] [address] OF [place] Glucose Test strip (U) [Mass/Vol] 4+ Abnormal Trace, Negative [facility] Comment on above: Order Comment: Speci men Type: URINE SPECIMEN Ordering Facility: [facility] Address: [address] [place] [address] Performed By: #### 2 4356-8 #### [facility] CLIA [id number] [address] [place] Hemoglobin Ql (U) 3+ Abnormal Negative, Trace [facility] Comment on above: Order Comment: Speci men Type: URINE SPECIMEN Ordering Facility: [facility] Address: [address] [place] [address] Performed By: #### 2 4356-8 #### [facility] CLIA [id number] [address] [place] Ketones Ql (U) Negative Normal Negative, Trace [facility] Comment on above: Order Comment: Speci men Type: URINE SPECIMEN Ordering Facility: [facility] Address: [address] [place] [address] Performed By: #### 2 4356-8 #### [facility] CLIA [id number] [address] Leukocyte esterase Test strip Ql (U) Negative Normal Negative, 25 Jennifer/uL [facility] Comment on above: Order Comment: Speci men Type: URINE SPECIMEN Ordering Facility: [facility] Address: [address] [place] [address] Performed By: #### 2 4356-8 #### [facility] CLIA [id number] [address] Nitrite Ql (U) Negative Normal Negative [facility] Comment on above: Order Comment: Speci men Type: URINE SPECIMEN Ordering Facility: [facility] Address: [address] [place] [address] Performed By: #### 2 4356-8 #### [facility] CLIA [id number] [address] pH (U) 6.5 [pH] Normal 5.0-8.0 [facility] Comment on above: Order Comment: Speci men Type: URINE SPECIMEN Ordering Facility: [facility] Address: [address] [place] [address] Performed By: #### 2 4356-8 #### [facility] CLIA [id number] [address] Protein (U) [Mass/Vol] 2+ Abnormal Trace , Negative [facility] Comment on above: Order Comment: Speci men Type: URINE SPECIMEN Ordering Facility: [facility] Address: [address] [place] [address] Performed By: #### 2 4356-8 #### [facility] CLIA [id number] [address] RBC LM.HPF (Urine sed) [#/Area] /[HPF] Abnormal 0-3 /HPF [facility] Comment on above: Order Comment: Speci men Type: URINE SPECIMEN Ordering Facility: [facility] Address: [address] [place] [address] Performed By: #### 2 4356-8 #### [facility] CLIA [id number] [address] [place] Specific gravity (U) [Rel density] >1.040 High 1.005-1.03 0 [facility] Comment on above: Order Comment: Speci men Type: URINE SPECIMEN Ordering Facility: [facility] Address: [address] [place] [address] Performed By: #### 2 4356-8 #### [facility] CLIA [id number] [address] OF [place] Urobilinogen Ql (U) Normal Normal Normal [facility] Comment on above: Order Comment: Speci men Type: URINE SPECIMEN Ordering Facility: [facility] Address: [address] [place] [address] Performed By: #### 2 4356-8 #### [facility] CLIA [id number] [address] WBC LM.HPF (Urine sed) [#/Area] 0-5 /HPF Normal 0-5 /HPF [facility] Comment on above: Order Comment: Speci men Type: URINE SPECIMEN Ordering Facility: [facility] Address: [address] [place] [address] Performed By: #### 2 4356-8 #### [facility] CLIA [id number] [address] OF [place] XR FEMUR 2V AP/LAT [...] angulated intratrochanteric fracture of the right hip Washing Machine Installer: GEORGE Transcribe Date/Time: Sep 02 2023 5:30P Dictated by : MEKA TAYLOR MD This examination was interpreted and the report reviewed and electronically signed by: MEKA TAYLOR MD on Sep 02 2023 5:32PM EST [id number] Normal [facility] aPTT PPPon 09-02-2023 aPTT Coag (PPP) [Time] 26.2 s Normal 23.0-32.4 [facility] Comment on above: Order Comment: Speci men Type: BLOOD SPECIMEN Ordering Facility: [facility] Address: [address] [place] [address] Performed By: #### 3 [id number], [id number] #### [facility] CLIA [id number] [address] OF [facility] Absolute lymphocyte countOrd ered By: Ananda Coyle on 06-19-2023 Lymphocytes Auto (Unsp spec) [#/Vol] 0.91 10*3/uL 0.83-4.51 [facility] Automated lymphocyte count a s percentage of total leukocytesOrdered By: Ananda Coyle on 06-19-2023 Lymphocytes/100 WBC Auto (Unsp spec) 8.1 % 19-41 [facility] Basophil percentageOrdered B y: Ananda Coyle on 06-19-2023 Basophils/100 WBC (Bld) 0.7 % 0-1 [facility] Chloride [Moles/Vol] 102 mmol/L 98-107 [facility] Eosinophils/100 WBC (Bld) 1.2 % 0-5 [facility] Glucose [Mass/Vol] 205 mg/dL 74-106 [facility] Comment on above: Glucose result great er than or equal to 200 mg/dLsuggests DIABETES MELLITUS per A.D.A. criteria. Hemoglobin (Bld) [Mass/Vol] 13.6 g/dL 12.0-15.0 [facility] Monocytes/100 WBC (Bld) 3.2 % 0-10 [facility] Neutrophils (Bld) [#/Vol] 9.7 10*3/uL 2.0-7.7 [facility] Neutrophils/100 WBC (Bld) 86.3 % 47-70 [facility] Potassium [Moles/Vol] 4.2 mmol/L 3.5-5.1 [facility] Sodium [Moles/Vol] 137 mmol/L 136-145 [facility] WBC (Bld) [#/Vol] 11.2 10*3/uL 4.4-11.0 [facility] Determination of erythrocyte mean corpuscular volume (MCV)Ordered By: Ananda Coyle on 06-19-2023 MCV (RBC) [Entitic vol] 81.2 fL 81-99 [facility] Erythrocyte distribution wid th ratioOrdered By: Ananda Coyle on 06-19-2023 Erythrocyte distribution width (RBC) [Ratio] 14.6 % 11.6-14.6 [facility] Erythrocyte distribution wid th standard deviationOrdered By: Ananda Coyle on 06-19-2023 Erythrocyte distribution width (RBC) [Entitic vol] 42.7 fL 35.1-43.9 [facility] Hematocrit Auto (Bld) [Volum e fraction]Ordered By: Ananda Coyle on 06-19-2023 Hematocrit (Bld) [Volume fraction] 42.7 % 37-47 [facility] Immature granulocytes/100 WB C Auto (Bld)Ordered By: Ananda Coyle on 06-19-2023 Immature granulocytes/100 WBC (Bld) 0.500 % 0.0-0.9 [facility] Comment on above: IG% - Immature Granu locytes (promyelocytes, myelocytes and metamyelocytes) > 1% indicates that a LEFT SHIFT is Present. Laboratory - Chemistry and C hemistry - challengeOrdered By: Ananda Coyle on 06-19-2023 CO2 [Moles/Vol] 27.0 mmol/L 21.0-32.0 [facility] Urea nitrogen/Creatinine [Mass ratio] 16.5 mg/mg 10-20 [facility] Laboratory - Hematology and Cell countsOrdered By: Ananda Coyle on 06-19-2023 MCH (RBC) [Entitic mass] 25.9 pg 27.0-32.0 [facility] MCHC (RBC) [Mass/Vol] 31.9 g/dL 32-36 [facility] Nucleated RBC/100 WBC (Bld) [Ratio] 0 % 0-5 [facility] Platelets (Bld) [#/Vol] 214 10*3/uL 150-450 [facility] No Panel InformationOrdered By: Ananda Coyle on 06-19-2023 Estimated Creatinine Clearance Calc 83.12 ml/min [facility] Estimated GFR (MDRD) Amer 91 mL/min >60 [facility] Comment on above: GFR Calc Estimated GFR (MDRD) Non-Af Amer 75 mL/min >60 [facility] Comment on above: Non- GFR Calc Platelet mean volume Marco-Ec ker (Bld) [Entitic vol]Ordered By: Ananda Coyle on 06-19-2023 Platelet mean volume (Bld) [Entitic vol] 9.9 fL 6.2-12.0 [facility] RBC Auto (Bld) [#/Vol]Ordere d By: Ananda Coyle on 06-19-2023 RBC (Bld) [#/Vol] 5.26 10*6/uL 4.2-5.4 [facility] Serum or plasma calcium xiomara urement (mass/volume)Ordered By: Ananda Coyle on 06-19-2023 Calcium [Mass/Vol] 9.6 mg/dL 8.5-10.1 [facility] Serum or plasma creatinine m easurement (mass/volume)Ordered By: Ananda Coyle on 06-19-2023 Creatinine [Mass/Vol] 0.85 mg/dL 0.55-1.02 [facility] Comment on above: The validity of the calculated GFR & GFRAA in patients over 70 years has not been determined. Clinical correlation is essential. Serum or plasma urea nitroge n measurement (mass/volume)Ordered By: Ananda Coyle on 06-19-2023 Urea nitrogen [Mass/Vol] 14 mg/dL 7-18 [facility] Thin prep Papanicolaou smear with manual screeningOrdered By: Ananda Coyle on 06-19-2023 Thin prep Papanicolaou smear with manual screening 8 5-15 [facility] Basophil percentageOrdered B y: Jeremy Alexander on 06-16-2023 Chloride [Moles/Vol] 105 mmol/L 98-107 [facility] Glucose [Mass/Vol] 65 mg/dL 74-106 [facility] Potassium [Moles/Vol] 3.7 mmol/L 3.5-5.1 [facility] Sodium [Moles/Vol] 139 mmol/L 136-145 [facility] Glucose Glucometer (BldC) [M ass/Vol]Ordered By: Jeremy Alexander on 06-16-2023 Glucose [Mass/Vol] 161 mg/dL 74-106 [facility] Comment on above: MANAGEMENT OF PATIEN T CARE PER NURSING PROTOCOL Laboratory - Chemistry and C hemistry - challengeOrdered By: Jeremy Alexander on 06-16-2023 CO2 [Moles/Vol] 27.0 mmol/L 21.0-32.0 [facility] Urea nitrogen/Creatinine [Mass ratio] 20.9 mg/mg 10-20 [facility] No Panel InformationOrdered By: Jeremy Alexander on 06-16-2023 Estimated Creatinine Clearance Calc 107.78 ml/min [facility] Estimated GFR (MDRD) Amer 119 mL/min >60 [facility] Comment on above: GFR Calc Estimated GFR (MDRD) Non-Af Amer 98 mL/min >60 [facility] Comment on above: Non- GFR Calc Serum or plasma calcium xiomara urement (mass/volume)Ordered By: Jeremy Alexander on 06-16-2023 Calcium [Mass/Vol] 8.9 mg/dL 8.5-10.1 [facility] Serum or plasma creatinine m easurement (mass/volume)Ordered By: Jeremy Alexander on 06-16-2023 Creatinine [Mass/Vol] 0.67 mg/dL 0.55-1.02 [facility] Comment on above: The validity of the calculated GFR & GFRAA in patients over 70 years has not been determined. Clinical correlation is essential. Serum or plasma urea nitroge n measurement (mass/volume)Ordered By: Jeremy Alexander on 06-16-2023 Urea nitrogen [Mass/Vol] 14 mg/dL 7-18 [facility] Thin prep Papanicolaou smear with manual screeningOrdered By: Jeremy Alexander on 06-16-2023 Thin prep Papanicolaou smear with manual screening 7 5-15 [facility] Absolute lymphocyte countOrd ered By: Jeremy Alexander on 06-15-2023 Lymphocytes Auto (Unsp spec) [#/Vol] 1.49 10*3/uL 0.83-4.51 [facility] Basophil percentageOrdered B y: Jeremy Alexander on 06-15-2023 Basophil percentage 4.9 mg/dL 2.5-4.9 [facility] Basophils/100 WBC (Bld) 0.8 % 0-1 [facility] Eosinophils/100 WBC (Bld) 5.7 % 0-5 [facility] Neutrophils (Bld) [#/Vol] 4.0 10*3/uL 2.0-7.7 [facility] Neutrophils/100 WBC (Bld) 61.2 % 47-70 [facility] WBC (Bld) [#/Vol] 6.5 10*3/uL 4.4-11.0 [facility] Blood erythrocytes count (nu mber/volume)Ordered By: Jeremy Alexander on 06-15-2023 RBC (Bld) [#/Vol] 4.70 10*6/uL 4.2-5.4 [facility] Blood hemoglobin measurement (mass/volume)Ordered By: Jeremy Alexander on 06-15-2023 Hemoglobin (Bld) [Mass/Vol] 12.0 g/dL 12.0-15.0 [facility] Blood lymphocytes/100 leukoc ytesOrdered By: Jeremy Alexander on 06-15-2023 Lymphocytes/100 WBC (Bld) 22.9 % 19-41 [facility] Blood monocytes/100 leukocyt esOrdered By: Jeremy Alexander on 06-15-2023 Monocytes/100 WBC (Bld) 8.9 % 0-10 [facility] Blood platelet mean volumeOr dered By: Jeremy Alexander on 06-15-2023 Platelet mean volume (Bld) [Entitic vol] 10.2 fL 6.2-12.0 [facility] Determination of erythrocyte mean corpuscular volume (MCV)Ordered By: Jeremy Alexander on 06-15-2023 MCV (RBC) [Entitic vol] 81.9 fL 81-99 [facility] Hematocrit Auto (Bld) [Volum e fraction]Ordered By: Jeremy Alexander on 06-15-2023 Hematocrit (Bld) [Volume fraction] 38.5 % 37-47 [facility] Laboratory - Chemistry and C hemistry - challengeOrdered By: Jeremy Alexander on 06-15-2023 Magnesium [Mass/Vol] 2.1 mg/dL 1.6-2.6 [facility] Laboratory - Hematology and Cell countsOrdered By: Jeremy Alexander on 06-15-2023 Erythrocyte distribution width (RBC) [Entitic vol] 41.6 fL 35.1-43.9 [facility] Erythrocyte distribution width (RBC) [Ratio] 14.1 % 11.6-14.6 [facility] Immature granulocytes/100 WBC (Bld) 0.500 % 0.0-0.9 [facility] Comment on above: IG% - Immature Granu locytes (promyelocytes, myelocytes and metamyelocytes) > 1% indicates that a LEFT SHIFT is Present. MCH (RBC) [Entitic mass] 25.5 pg 27.0-32.0 [facility] Nucleated RBC/100 WBC (Bld) [Ratio] 0 % 0-5 [facility] MCHC Auto (RBC) [Mass/Vol]Or dered By: Jeremy Alexander on 06-15-2023 MCHC (RBC) [Mass/Vol] 31.2 g/dL 32-36 [facility] No Panel InformationOrdered By: Jeremy Alexander on 06-15-2023 Troponin I High Sensitivity 17 pg/mL 3.0-54.0 [facility] Comment on above: Please Note: New Junie t Units and Gender Specific Reference Ranges. For more information see Policy Stat Procedure [employer]erinx High Sensitivity Troponin (TNIH) and attachments. Platelets bldOrdered By: Kenia Alexander on 06-15-2023 Platelets (Bld) [#/Vol] 201 10*3/uL 150-450 [facility] Absolute lymphocyte countOrd ered By: Riccardo Hillman on 06-12-2023 Lymphocytes Auto (Unsp spec) [#/Vol] 1.61 10*3/uL 0.83-4.51 [facility] Basophil percentageOrdered B y: Riccardo Hillman on 06-12-2023 Basophils/100 WBC (Bld) 1.0 % 0-1 [facility] Chloride [Moles/Vol] 103 mmol/L 98-107 [facility] Eosinophils/100 WBC (Bld) 3.9 % 0-5 [facility] Glucose [Mass/Vol] 272 mg/dL 74-106 [facility] Comment on above: Glucose result great er than or equal to 200 mg/dLsuggests DIABETES MELLITUS per A.D.A. criteria. Neutrophils (Bld) [#/Vol] 5.5 10*3/uL 2.0-7.7 [facility] Neutrophils/100 WBC (Bld) 68.5 % 47-70 [facility] Potassium [Moles/Vol] 4.0 mmol/L 3.5-5.1 [facility] Comment on above: Moderate Hemolysis, Result may be falsely increased. Sodium [Moles/Vol] 136 mmol/L 136-145 [facility] WBC (Bld) [#/Vol] 8.0 10*3/uL 4.4-11.0 [facility] Blood erythrocytes count (nu mber/volume)Ordered By: Riccardo Hillman on 06-12-2023 RBC (Bld) [#/Vol] 4.92 10*6/uL 4.2-5.4 [facility] Blood hemoglobin measurement (mass/volume)Ordered By: Riccardo Hillman on 06-12-2023 Hemoglobin (Bld) [Mass/Vol] 12.7 g/dL 12.0-15.0 [facility] Blood lymphocytes/100 leukoc ytesOrdered By: Riccardo Hillman on 06-12-2023 Lymphocytes/100 WBC (Bld) 20.3 % 19-41 [facility] Blood manual differential co mment interpretation (narrative result)Ordered By: Riccardo Hillman on 06-12-2023 Manual differential comment Main (Bld) [Interp] SCANNED [facility] Comment on above: AUTO DIFF OK Blood monocytes/100 leukocyt esOrdered By: Riccardo Hillman on 06-12-2023 Monocytes/100 WBC (Bld) 6.0 % 0-10 [facility] Blood platelet mean volumeOr dered By: Riccardo Hillman on 06-12-2023 Platelet mean volume (Bld) [Entitic vol] 11.3 fL 6.2-12.0 [facility] Determination of erythrocyte mean corpuscular volume (MCV)Ordered By: Riccardo Hillman on 06-12-2023 MCV (RBC) [Entitic vol] 81.3 fL 81-99 [facility] Hematocrit Auto (Bld) [Volum e fraction]Ordered By: Riccardo Hillman on 06-12-2023 Hematocrit (Bld) [Volume fraction] 40.0 % 37-47 [facility] INR in Blood by Coagulation assayOrdered By: Riccardo Hillman on 06-12-2023 INR Coag (Bld) [Relative time] 1.0 {INR} [facility] Laboratory - Chemistry and C hemistry - challengeOrdered By: Riccardo Hillman on 06-12-2023 CO2 [Moles/Vol] 27.0 mmol/L 21.0-32.0 [facility] Natriuretic peptide B (Bld) [Mass/Vol] 596.3 pg/mL 0-100 [facility] Urea nitrogen/Creatinine [Mass ratio] 12.0 mg/mg 10-20 [facility] Laboratory - CoagulationOrde red By: Riccardo Hillman on 06-12-2023 aPTT Coag (Bld) [Time] 27.5 s 24.1-36.2 [facility] PT Coag (PPP) [Time] 12.7 s 11.7-14.9 [facility] Laboratory - Hematology and Cell countsOrdered By: Riccardo Hillman on 06-12-2023 Erythrocyte distribution width (RBC) [Entitic vol] 41.9 fL 35.1-43.9 [facility] Erythrocyte distribution width (RBC) [Ratio] 14.4 % 11.6-14.6 [facility] Immature granulocytes/100 WBC (Bld) 0.300 % 0.0-0.9 [facility] Comment on above: IG% - Immature Granu locytes (promyelocytes, myelocytes and metamyelocytes) > 1% indicates that a LEFT SHIFT is Present. MCH (RBC) [Entitic mass] 25.8 pg 27.0-32.0 [facility] Nucleated RBC/100 WBC (Bld) [Ratio] 0 % 0-5 [facility] MCHC Auto (RBC) [Mass/Vol]Or dered By: Riccardo Hillman on 06-12-2023 MCHC (RBC) [Mass/Vol] 31.8 g/dL 32-36 [facility] No Panel InformationOrdered By: Riccardo Hillman on 06-12-2023 Estimated Creatinine Clearance Calc 140.88 ml/min [facility] Estimated GFR (MDRD) Amer 105 mL/min >60 [facility] Comment on above: GFR Calc Estimated GFR (MDRD) Non-Af Amer 86 mL/min >60 [facility] Comment on above: Non- GFR Calc Troponin I High Sensitivity 22 pg/mL 3.0-54.0 [facility] Comment on above: Please Note: New Junie t Units and Gender Specific Reference Ranges. For more information see Policy Stat Procedure [employer] High Sensitivity Troponin (TNIH) and attachments. Platelets bldOrdered By: Guerita Hillman on 06-12-2023 Platelets (Bld) [#/Vol] 150 10*3/uL 150-450 [facility] Serum or plasma calcium xiomara urement (mass/volume)Ordered By: Riccardo Hillman on 06-12-2023 Calcium [Mass/Vol] 9.1 mg/dL 8.5-10.1 [facility] Serum or plasma creatinine m easurement (mass/volume)Ordered By: Riccardo Hillman on 06-12-2023 Creatinine [Mass/Vol] 0.75 mg/dL 0.55-1.02 [facility] Comment on above: The validity of the calculated GFR & GFRAA in patients over 70 years has not been determined. Clinical correlation is essential. Serum or plasma urea nitroge n measurement (mass/volume)Ordered By: Riccardo Hillman on 06-12-2023 Urea nitrogen [Mass/Vol] 9 mg/dL 7-18 [facility] Thin prep Papanicolaou smear with manual screeningOrdered By: Riccardo Hillman on 06-12-2023 Thin prep Papanicolaou smear with manual screening 6 5-15 [facility] Absolute lymphocyte countOrd ered By: Ananda Coyle on 05-26-2023 Lymphocytes Auto (Unsp spec) [#/Vol] 1.00 10*3/uL 0.83-4.51 [facility] Basophil percentageOrdered B y: Ananda Coyle on 05-26-2023 Basophils/100 WBC (Bld) 0.8 % 0-1 [facility] Chloride [Moles/Vol] 103 mmol/L 98-107 [facility] Eosinophils/100 WBC (Bld) 1.3 % 0-5 [facility] Glucose [Mass/Vol] 247 mg/dL 74-106 [facility] Comment on above: Glucose result great er than or equal to 200 mg/dLsuggests DIABETES MELLITUS per A.D.A. criteria. Neutrophils (Bld) [#/Vol] 7.5 10*3/uL 2.0-7.7 [facility] Neutrophils/100 WBC (Bld) 82.1 % 47-70 [facility] Potassium [Moles/Vol] 3.2 mmol/L 3.5-5.1 [facility] Sodium [Moles/Vol] 139 mmol/L 136-145 [facility] WBC (Bld) [#/Vol] 9.1 10*3/uL 4.4-11.0 [facility] Blood erythrocytes count (nu mber/volume)Ordered By: Ananda Coyle on 05-26-2023 RBC (Bld) [#/Vol] 5.34 10*6/uL 4.2-5.4 [facility] Blood hemoglobin measurement (mass/volume)Ordered By: Ananda Coyle on 05-26-2023 Hemoglobin (Bld) [Mass/Vol] 13.9 g/dL 12.0-15.0 [facility] Blood lymphocytes/100 leukoc ytesOrdered By: Ananda Coyle on 05-26-2023 Lymphocytes/100 WBC (Bld) 11.0 % 19-41 [facility] Blood monocytes/100 leukocyt esOrdered By: Ananda Coyle on 05-26-2023 Monocytes/100 WBC (Bld) 4.5 % 0-10 [facility] Blood platelet mean volumeOr dered By: Ananda Coyle on 05-26-2023 Platelet mean volume (Bld) [Entitic vol] 9.8 fL 6.2-12.0 [facility] Determination of erythrocyte mean corpuscular volume (MCV)Ordered By: Ananda Coyle on 05-26-2023 MCV (RBC) [Entitic vol] 82.0 fL 81-99 [facility] Hematocrit Auto (Bld) [Volum e fraction]Ordered By: Ananda Coyle on 05-26-2023 Hematocrit (Bld) [Volume fraction] 43.8 % 37-47 [facility] Laboratory - Chemistry and C hemistry - challengeOrdered By: Ananda Coyle on 05-26-2023 CO2 [Moles/Vol] 31.0 mmol/L 21.0-32.0 [facility] Urea nitrogen/Creatinine [Mass ratio] 7.3 mg/mg 10-20 [facility] Laboratory - Hematology and Cell countsOrdered By: Ananda Coyle on 05-26-2023 Erythrocyte distribution width (RBC) [Entitic vol] 42.0 fL 35.1-43.9 [facility] Erythrocyte distribution width (RBC) [Ratio] 14.4 % 11.6-14.6 [facility] Immature granulocytes/100 WBC (Bld) 0.300 % 0.0-0.9 [facility] Comment on above: IG% - Immature Granu locytes (promyelocytes, myelocytes and metamyelocytes) > 1% indicates that a LEFT SHIFT is Present. MCH (RBC) [Entitic mass] 26.0 pg 27.0-32.0 [facility] Nucleated RBC/100 WBC (Bld) [Ratio] 0 % 0-5 [facility] MCHC Auto (RBC) [Mass/Vol]Or dered By: Ananda Coyle on 05-26-2023 MCHC (RBC) [Mass/Vol] 31.7 g/dL 32-36 [facility] No Panel InformationOrdered By: Ananda Coyle on 05-26-2023 Estimated Creatinine Clearance Calc 95.18 ml/min [facility] Estimated GFR (MDRD) Amer 116 mL/min >60 [facility] Comment on above: GFR Calc Estimated GFR (MDRD) Non-Af Amer 96 mL/min >60 [facility] Comment on above: Non- GFR Calc Platelets bldOrdered By: Andrew Coyle on 05-26-2023 Platelets (Bld) [#/Vol] 220 10*3/uL 150-450 [facility] Serum or plasma calcium xiomara urement (mass/volume)Ordered By: Ananda Coyle on 05-26-2023 Calcium [Mass/Vol] 9.1 mg/dL 8.5-10.1 [facility] Serum or plasma creatinine m easurement (mass/volume)Ordered By: Ananda Coyle on 05-26-2023 Creatinine [Mass/Vol] 0.68 mg/dL 0.55-1.02 [facility] Comment on above: The validity of the calculated GFR & GFRAA in patients over 70 years has not been determined. Clinical correlation is essential. Serum or plasma urea nitroge n measurement (mass/volume)Ordered By: Ananda Coyle on 05-26-2023 Urea nitrogen [Mass/Vol] 5 mg/dL 7-18 [facility] Thin prep Papanicolaou smear with manual screeningOrdered By: Ananda Coyle on 05-26-2023 Thin prep Papanicolaou smear with manual screening 5 5-15 [facility] Absolute lymphocyte countOrd ered By: Vidal Solorio on 05-22-2023 Lymphocytes Auto (Unsp spec) [#/Vol] 1.25 10*3/uL 0.83-4.51 [facility] Basophil percentageOrdered B y: Vidal Solorio on 05-22-2023 Basophils/100 WBC (Bld) 0.7 % 0-1 [facility] Chloride [Moles/Vol] 102 mmol/L 98-107 [facility] Eosinophils/100 WBC (Bld) 2.0 % 0-5 [facility] Glucose [Mass/Vol] 323 mg/dL 74-106 [facility] Comment on above: Glucose result great er than or equal to 200 mg/dLsuggests DIABETES MELLITUS per A.D.A. criteria. Neutrophils (Bld) [#/Vol] 6.3 10*3/uL 2.0-7.7 [facility] Neutrophils/100 WBC (Bld) 76.7 % 47-70 [facility] Potassium [Moles/Vol] 3.9 mmol/L 3.5-5.1 [facility] Sodium [Moles/Vol] 136 mmol/L 136-145 [facility] WBC (Bld) [#/Vol] 8.1 10*3/uL 4.4-11.0 [facility] Blood erythrocytes count (nu mber/volume)Ordered By: Vidal Solorio on 05-22-2023 RBC (Bld) [#/Vol] 4.97 10*6/uL 4.2-5.4 [facility] Blood hemoglobin measurement (mass/volume)Ordered By: Vidal Solorio on 05-22-2023 Hemoglobin (Bld) [Mass/Vol] 12.9 g/dL 12.0-15.0 [facility] Blood lymphocytes/100 leukoc ytesOrdered By: Vidal Solorio on 05-22-2023 Lymphocytes/100 WBC (Bld) 15.4 % 19-41 [facility] Blood monocytes/100 leukocyt esOrdered By: Vidal Solorio on 05-22-2023 Monocytes/100 WBC (Bld) 4.8 % 0-10 [facility] Blood platelet mean volumeOr dered By: Vidal Solorio on 05-22-2023 Platelet mean volume (Bld) [Entitic vol] 10.6 fL 6.2-12.0 [facility] Determination of erythrocyte mean corpuscular volume (MCV)Ordered By: Vidal Solorio on 05-22-2023 MCV (RBC) [Entitic vol] 82.1 fL 81-99 [facility] Hematocrit Auto (Bld) [Volum e fraction]Ordered By: Vidal Solorio on 05-22-2023 Hematocrit (Bld) [Volume fraction] 40.8 % 37-47 [facility] Laboratory - Chemistry and C hemistry - challengeOrdered By: Vidal Solorio on 05-22-2023 CO2 [Moles/Vol] 30.0 mmol/L 21.0-32.0 [facility] Urea nitrogen/Creatinine [Mass ratio] 11.6 mg/mg 10-20 [facility] Laboratory - Hematology and Cell countsOrdered By: Vidal Solorio on 05-22-2023 Erythrocyte distribution width (RBC) [Entitic vol] 41.3 fL 35.1-43.9 [facility] Erythrocyte distribution width (RBC) [Ratio] 14.1 % 11.6-14.6 [facility] Immature granulocytes/100 WBC (Bld) 0.400 % 0.0-0.9 [facility] Comment on above: IG% - Immature Granu locytes (promyelocytes, myelocytes and metamyelocytes) > 1% indicates that a LEFT SHIFT is Present. MCH (RBC) [Entitic mass] 26.0 pg 27.0-32.0 [facility] Nucleated RBC/100 WBC (Bld) [Ratio] 0 % 0-5 [facility] MCHC Auto (RBC) [Mass/Vol]Or dered By: Vidal Solorio on 05-22-2023 MCHC (RBC) [Mass/Vol] 31.6 g/dL 32-36 [facility] No Panel InformationOrdered By: Vidal Solorio on 05-22-2023 Estimated Creatinine Clearance Calc 82.98 ml/min [facility] Estimated GFR (MDRD) Amer 100 mL/min >60 [facility] Comment on above: GFR Calc Estimated GFR (MDRD) Non-Af Amer 83 mL/min >60 [facility] Comment on above: Non- GFR Calc Platelets bldOrdered By: Roxi Solorio on 05-22-2023 Platelets (Bld) [#/Vol] 196 10*3/uL 150-450 [facility] Serum or plasma calcium xiomara urement (mass/volume)Ordered By: Vidal Solorio on 05-22-2023 Calcium [Mass/Vol] 9.2 mg/dL 8.5-10.1 [facility] Serum or plasma creatinine m easurement (mass/volume)Ordered By: Vidal Solorio on 05-22-2023 Creatinine [Mass/Vol] 0.78 mg/dL 0.55-1.02 [facility] Comment on above: The validity of the calculated GFR & GFRAA in patients over 70 years has not been determined. Clinical correlation is essential. Serum or plasma urea nitroge n measurement (mass/volume)Ordered By: Vidal Solorio on 05-22-2023 Urea nitrogen [Mass/Vol] 9 mg/dL 7-18 [facility] Thin prep Papanicolaou smear with manual screeningOrdered By: Vidal Solorio on 05-22-2023 Thin prep Papanicolaou smear with manual screening 4 5-15 [facility] Absolute lymphocyte countOrd ered By: Brenda Posadas on 05-07-2023 Lymphocytes Auto (Unsp spec) [#/Vol] 1.39 10*3/uL 0.83-4.51 [facility] Basophil percentageOrdered B y: Brenda Posadas on 05-07-2023 Basophils/100 WBC (Bld) 1.1 % 0-1 [facility] Chloride [Moles/Vol] 102 mmol/L 98-107 [facility] Eosinophils/100 WBC (Bld) 3.0 % 0-5 [facility] Glucose [Mass/Vol] 85 mg/dL 74-106 [facility] Neutrophils (Bld) [#/Vol] 4.2 10*3/uL 2.0-7.7 [facility] Neutrophils/100 WBC (Bld) 66.3 % 47-70 [facility] Potassium [Moles/Vol] 4.2 mmol/L 3.5-5.1 [facility] Sodium [Moles/Vol] 136 mmol/L 136-145 [facility] WBC (Bld) [#/Vol] 6.3 10*3/uL 4.4-11.0 [facility] Blood erythrocytes count (nu mber/volume)Ordered By: Brenda Posadas on 05-07-2023 RBC (Bld) [#/Vol] 5.19 10*6/uL 4.2-5.4 [facility] Blood hemoglobin measurement (mass/volume)Ordered By: Brenda Posadas on 05-07-2023 Hemoglobin (Bld) [Mass/Vol] 13.5 g/dL 12.0-15.0 [facility] Blood lymphocytes/100 leukoc ytesOrdered By: Brenda Posadas on 05-07-2023 Lymphocytes/100 WBC (Bld) 22.0 % 19-41 [facility] Blood monocytes/100 leukocyt esOrdered By: Brenda Posadas on 05-07-2023 Monocytes/100 WBC (Bld) 7.3 % 0-10 [facility] Blood platelet mean volumeOr dered By: Brenda Posadas on 05-07-2023 Platelet mean volume (Bld) [Entitic vol] 10.5 fL 6.2-12.0 [facility] Determination of erythrocyte mean corpuscular volume (MCV)Ordered By: Brenda Posadas on 05-07-2023 MCV (RBC) [Entitic vol] 83.8 fL 81-99 [facility] Glucose Glucometer (BldC) [M ass/Vol]Ordered By: Latricia Aaron on 05-07-2023 Glucose [Mass/Vol] 229 mg/dL 74-106 [facility] Comment on above: MANAGEMENT OF PATIEN T CARE PER NURSING PROTOCOL Hematocrit Auto (Bld) [Volum e fraction]Ordered By: Brenda Posadas on 05-07-2023 Hematocrit (Bld) [Volume fraction] 43.5 % 37-47 [facility] - Chemistry and C hemistry - challengeOrdered By: Brenda Posadas on 05-07-2023 CO2 [Moles/Vol] 26.0 mmol/L 21.0-32.0 [facility] Urea nitrogen/Creatinine [Mass ratio] 20.5 mg/mg 10-20 [facility] - Hematology and Cell countsOrdered By: Brenda Posadas on 05-07-2023 Erythrocyte distribution width (RBC) [Entitic vol] 42.9 fL 35.1-43.9 [facility] Erythrocyte distribution width (RBC) [Ratio] 14.1 % 11.6-14.6 [facility] Immature granulocytes/100 WBC (Bld) 0.300 % 0.0-0.9 [facility] Comment on above: IG% - Immature Granu locytes (promyelocytes, myelocytes and metamyelocytes) > 1% indicates that a LEFT SHIFT is Present. MCH (RBC) [Entitic mass] 26.0 pg 27.0-32.0 [facility] Nucleated RBC/100 WBC (Bld) [Ratio] 0 % 0-5 [facility] MCHC Auto (RBC) [Mass/Vol]Or dered By: Brenda Posadas on 05-07-2023 MCHC (RBC) [Mass/Vol] 31.0 g/dL 32-36 [facility] No Panel InformationOrdered By: Brenda Posadas on 05-07-2023 Estimated Creatinine Clearance Calc 88.66 ml/min [facility] Estimated GFR (MDRD) Amer 108 mL/min >60 [facility] Comment on above: GFR Calc Estimated GFR (MDRD) Non-Af Amer 89 mL/min >60 [facility] Comment on above: Non- GFR Calc Platelets bldOrdered By: [place] Posadas on 05-07-2023 Platelets (Bld) [#/Vol] 202 10*3/uL 150-450 [facility] Serum or plasma calcium xiomara urement (mass/volume)Ordered By: Brenda Posadas on 05-07-2023 Calcium [Mass/Vol] 8.7 mg/dL 8.5-10.1 [facility] Serum or plasma creatinine m easurement (mass/volume)Ordered By: Brenda Posadas on 05-07-2023 Creatinine [Mass/Vol] 0.73 mg/dL 0.55-1.02 [facility] Comment on above: The validity of the calculated GFR & GFRAA in patients over 70 years has not been determined. Clinical correlation is essential. Serum or plasma urea nitroge n measurement (mass/volume)Ordered By: Brenda Posadas on 05-07-2023 Urea nitrogen [Mass/Vol] 15 mg/dL 7-18 [facility] Thin prep Papanicolaou smear with manual screeningOrdered By: Brenda Posadas on 05-07-2023 Thin prep Papanicolaou smear with manual screening 8 5-15 [facility] - Chemistry and C hemistry - challengeOrdered By: Lei Justin on 05-04-2023 Magnesium [Mass/Vol] 2.1 mg/dL 1.6-2.6 [facility] No Panel InformationOrdered By: Brenda Posadas on 05-04-2023 Troponin I High Sensitivity 13 pg/mL 3.0-54.0 [facility] Comment on above: Please Note: New Junie t Units and Gender Specific Reference Ranges. For more information see Policy Stat Procedure Nerinx High Sensitivity Troponin (TNIH) and attachments. Absolute lymphocyte countOrd ered By: Ananda Coyle on 05-03-2023 Lymphocytes Auto (Unsp spec) [#/Vol] 1.07 10*3/uL 0.83-4.51 [facility] Basophil percentageOrdered B y: Ananda Coyle on 05-03-2023 Basophils/100 WBC (Bld) 0.9 % 0-1 [facility] Chloride [Moles/Vol] 106 mmol/L 98-107 [facility] Eosinophils/100 WBC (Bld) 3.4 % 0-5 [facility] Glucose [Mass/Vol] 323 mg/dL 74-106 [facility] Comment on above: Glucose result great er than or equal to 200 mg/dLsuggests DIABETES MELLITUS per A.D.A. criteria. Neutrophils (Bld) [#/Vol] 6.1 10*3/uL 2.0-7.7 [facility] Neutrophils/100 WBC (Bld) 77.6 % 47-70 [facility] Potassium [Moles/Vol] 3.6 mmol/L 3.5-5.1 [facility] Sodium [Moles/Vol] 138 mmol/L 136-145 [facility] WBC (Bld) [#/Vol] 7.9 10*3/uL 4.4-11.0 [facility] Blood erythrocytes count (nu mber/volume)Ordered By: Ananda Coyle on 05-03-2023 RBC (Bld) [#/Vol] 4.86 10*6/uL 4.2-5.4 [facility] Blood hemoglobin measurement (mass/volume)Ordered By: Ananda Coyle on 05-03-2023 Hemoglobin (Bld) [Mass/Vol] 12.6 g/dL 12.0-15.0 [facility] Blood lymphocytes/100 leukoc ytesOrdered By: Ananda Coyle on 05-03-2023 Lymphocytes/100 WBC (Bld) 13.6 % 19-41 [facility] Blood monocytes/100 leukocyt esOrdered By: Ananda Coyle on 05-03-2023 Monocytes/100 WBC (Bld) 3.9 % 0-10 [facility] Blood platelet mean volumeOr dered By: Ananda Coyle on 05-03-2023 Platelet mean volume (Bld) [Entitic vol] 9.8 fL 6.2-12.0 [facility] Determination of erythrocyte mean corpuscular volume (MCV)Ordered By: Ananda Coyle on 05-03-2023 MCV (RBC) [Entitic vol] 82.5 fL 81-99 [facility] Hematocrit Auto (Bld) [Volum e fraction]Ordered By: Ananda Coyle on 05-03-2023 Hematocrit (Bld) [Volume fraction] 40.1 % 37-47 [facility] Influenza virus A and B and SARS-CoV-2 (COVID-19) Ag panel - Upper respiratory specimOrdered By: Ananda Coyle on 05-03-2023 SARS-CoV-2 (COVID-19) RNA CRISSY+probe Ql (Resp) [facility] - Chemistry and C hemistry - challengeOrdered By: Ananda Coyle on 05-03-2023 CO2 [Moles/Vol] 29.0 mmol/L 21.0-32.0 [facility] Natriuretic peptide B (Bld) [Mass/Vol] 941.8 pg/mL 0-100 [facility] Urea nitrogen/Creatinine [Mass ratio] 13.0 mg/mg 10-20 [facility] - Hematology and Cell countsOrdered By: Ananda Coyle on 05-03-2023 Erythrocyte distribution width (RBC) [Entitic vol] 41.4 fL 35.1-43.9 [facility] Erythrocyte distribution width (RBC) [Ratio] 14.2 % 11.6-14.6 [facility] Immature granulocytes/100 WBC (Bld) 0.600 % 0.0-0.9 [facility] Comment on above: IG% - Immature Granu locytes (promyelocytes, myelocytes and metamyelocytes) > 1% indicates that a LEFT SHIFT is Present. MCH (RBC) [Entitic mass] 25.9 pg 27.0-32.0 [facility] Nucleated RBC/100 WBC (Bld) [Ratio] 0 % 0-5 [facility] MCHC Auto (RBC) [Mass/Vol]Or dered By: Ananda Coyle on 05-03-2023 MCHC (RBC) [Mass/Vol] 31.4 g/dL 32-36 [facility] No Panel InformationOrdered By: Ananda Coyle on 05-03-2023 Estimated Creatinine Clearance Calc 84.06 ml/min [facility] Estimated GFR (MDRD) Amer 102 mL/min >60 [facility] Comment on above: GFR Calc Estimated GFR (MDRD) Non-Af Amer 84 mL/min >60 [facility] Comment on above: Non- GFR Calc Troponin I High Sensitivity 14 pg/mL 3.0-54.0 [facility] Comment on above: Please Note: New Junie t Units and Gender Specific Reference Ranges. For more information see Policy Stat Procedure Nerinx High Sensitivity Troponin (TNIH) and attachments. Platelets bldOrdered By: Andrew Colye on 05-03-2023 Platelets (Bld) [#/Vol] 210 10*3/uL 150-450 [facility] Serum or plasma calcium xiomara urement (mass/volume)Ordered By: Ananda Coyle on 05-03-2023 Calcium [Mass/Vol] 8.6 mg/dL 8.5-10.1 [facility] Serum or plasma creatinine m easurement (mass/volume)Ordered By: Ananda Coyle on 05-03-2023 Creatinine [Mass/Vol] 0.77 mg/dL 0.55-1.02 [facility] Comment on above: The validity of the calculated GFR & GFRAA in patients over 70 years has not been determined. Clinical correlation is essential. Serum or plasma urea nitroge n measurement (mass/volume)Ordered By: Ananda Coyle on 05-03-2023 Urea nitrogen [Mass/Vol] 10 mg/dL 7-18 [facility] Thin prep Papanicolaou smear with manual screeningOrdered By: Ananda Coyle on 05-03-2023 Thin prep Papanicolaou smear with manual screening 3 - [facility] Upper respiratory specimen i nfluenza A virus, influenza B virus, and severe acute resOrdered By: Ananda Coyle on 05-03-2023 Upper respiratory specimen influenza A virus, influenza B virus, and severe acute res [facility] Upper respiratory specimen i nfluenza A virus, influenza B virus, and severe acute respiratory syndromOrdered By: Ananda Coyle on 05-03-2023 Upper respiratory specimen influenza A virus, influenza B virus, and severe acute respiratory syndrom [facility] Whole blood hemoglobin A1c/t otal hemoglobin ratio (mass fraction)Ordered By: Lei Justin on 05-03-2023 HbA1c (Bld) [Mass fraction] 11.0 % 3.8-5.6 [facility] Comment on above: Normal < 5.7 % Predi abetic 5.7 - 6.4 % Diabetic >or= 6.5 % Please note range changes. Basophil percentageOrdered B y: Lino Sousa on 04-18-2023 Amylase [Catalytic activity/Vol] 45 U/L 25-115 [facility] Bilirubin [Mass/Vol] 0.90 mg/dL 0.20-1.00 [facility] Comment on above: For patients on eltr ombopag therapy, use of Dimension Nerinx TBIL is not recommended. Chloride [Moles/Vol] 103 mmol/L 98-107 [facility] Glucose [Mass/Vol] 279 mg/dL 74-106 [facility] Comment on above: Glucose result great er than or equal to 200 mg/dLsuggests DIABETES MELLITUS per A.D.A. criteria. Potassium [Moles/Vol] 4.1 mmol/L 3.5-5.1 [facility] Protein [Mass/Vol] 7.5 g/dL 6.4-8.2 [facility] Sodium [Moles/Vol] 137 mmol/L 136-145 [facility] - Chemistry and C hemistry - challengeOrdered By: Lino Sousa on 04-18-2023 ALP [Catalytic activity/Vol] 104 U/L 45-117 [facility] ALT [Catalytic activity/Vol] 13 U/L 13-56 [facility] CO2 [Moles/Vol] 30.0 mmol/L 21.0-32.0 [facility] Globulin (S) [Mass/Vol] 4.5 g/dL 2.2-4.2 [facility] Lipase [Catalytic activity/Vol] 27 U/L 13-75 [facility] Comment on above: Please note:LIPASE r evised reference range effective 22. New Lipase methodology. Expected to produce lower values than the previous assay method. NEW Reference Range: 13 - 75 U/L Urea nitrogen/Creatinine [Mass ratio] 12.8 mg/mg 10-20 [facility] No Panel InformationOrdered By: Lino Sousa on 04-18-2023 Estimated GFR (MDRD) Amer 90 mL/min >60 [facility] Comment on above: GFR Calc Estimated GFR (MDRD) Non-Af Amer 74 mL/min >60 [facility] Comment on above: Non- GFR Calc Serum or plasma albumin xiomara urement (mass/volume)Ordered By: Lino Sousa on 04-18-2023 Albumin [Mass/Vol] 3.0 g/dL 3.2-5.0 [facility] Serum or plasma albumin/glob ulin mass ratioOrdered By: Lino Sousa on 04-18-2023 Albumin/Globulin [Mass ratio] 0.7 {ratio} 0.9-2.4 [facility] Serum or plasma calcium xiomara urement (mass/volume)Ordered By: Lino Sousa on 04-18-2023 Calcium [Mass/Vol] 9.0 mg/dL 8.5-10.1 [facility] Serum or plasma creatinine m easurement (mass/volume)Ordered By: Lino Sousa on 04-18-2023 Creatinine [Mass/Vol] 0.86 mg/dL 0.55-1.02 [facility] Comment on above: The validity of the calculated GFR & GFRAA in patients over 70 years has not been determined. Clinical correlation is essential. Serum or plasma urea nitroge n measurement (mass/volume)Ordered By: Lino Sousa on 04-18-2023 Urea nitrogen [Mass/Vol] 11 mg/dL 7-18 [facility] Thin prep Papanicolaou smear with manual screeningOrdered By: Lino Sousa on 04-18-2023 Thin prep Papanicolaou smear with manual screening 12 U/L 15-37 [facility] Thin prep Papanicolaou smear with manual screening 4 - [facility] Absolute lymphocyte countOrd ered By: Brandon Adames on 02-03-2023 Lymphocytes Auto (Unsp spec) [#/Vol] 1.68 10*3/uL 0.83-4.51 [facility] Basophil percentageOrdered B y: Brandon Adames on 02-03-2023 Basophils/100 WBC (Bld) 1.0 % 0-1 [facility] Chloride [Moles/Vol] 106 mmol/L 98-107 [facility] Eosinophils/100 WBC (Bld) 3.2 % 0-5 [facility] Glucose [Mass/Vol] 177 mg/dL 74-106 [facility] Comment on above: Fasting Glucose resu lt greater than or equal to 126 mg/dL suggests DIABETES MELLITUS per A.D.A. criteria. Neutrophils (Bld) [#/Vol] 5.9 10*3/uL 2.0-7.7 [facility] Neutrophils/100 WBC (Bld) 70.1 % 47-70 [facility] Potassium [Moles/Vol] 3.6 mmol/L 3.5-5.1 [facility] Sodium [Moles/Vol] 138 mmol/L 136-145 [facility] WBC (Bld) [#/Vol] 8.4 10*3/uL 4.4-11.0 [facility] Blood erythrocytes count (nu mber/volume)Ordered By: Brandon Adames on 02-03-2023 RBC (Bld) [#/Vol] 4.78 10*6/uL 4.2-5.4 [facility] Blood hemoglobin measurement (mass/volume)Ordered By: Brandon Adames on 02-03-2023 Hemoglobin (Bld) [Mass/Vol] 13.1 g/dL 12.0-15.0 [facility] Blood lymphocytes/100 leukoc ytesOrdered By: Brandon Adames on 02-03-2023 Lymphocytes/100 WBC (Bld) 20.1 % 19-41 [facility] Blood monocytes/100 leukocyt esOrdered By: Brandon Adames on 02-03-2023 Monocytes/100 WBC (Bld) 5.4 % 0-10 [facility] Blood platelet mean volumeOr dered By: Brandon Adames on 02-03-2023 Platelet mean volume (Bld) [Entitic vol] 9.9 fL 6.2-12.0 [facility] Determination of erythrocyte mean corpuscular volume (MCV)Ordered By: Brandon Adames on 02-03-2023 MCV (RBC) [Entitic vol] 86.0 fL 81-99 [facility] Glucose Glucometer (dC) [M ass/Vol]Ordered By: Sabina Rosenberg on 02-03-2023 Glucose [Mass/Vol] 247 mg/dL 74-106 [facility] Comment on above: MANAGEMENT OF PATIEN T CARE PER NURSING PROTOCOL Hematocrit Auto (Bld) [Volum e fraction]Ordered By: Brandon Adames on 02-03-2023 Hematocrit (Bld) [Volume fraction] 41.1 % 37-47 [facility] - Chemistry and C hemistry - challengeOrdered By: Brandon Adames on 02-03-2023 CO2 [Moles/Vol] 27.0 mmol/L 21.0-32.0 [facility] Urea nitrogen/Creatinine [Mass ratio] 12.6 mg/mg 10-20 [facility] - Hematology and Cell countsOrdered By: Brandon Adames on 02-03-2023 Erythrocyte distribution width (RBC) [Entitic vol] 40.4 fL 35.1-43.9 [facility] Erythrocyte distribution width (RBC) [Ratio] 13.1 % 11.6-14.6 [facility] Immature granulocytes/100 WBC (Bld) 0.200 % 0.0-0.9 [facility] Comment on above: IG% - Immature Granu locytes (promyelocytes, myelocytes and metamyelocytes) > 1% indicates that a LEFT SHIFT is Present. MCH (RBC) [Entitic mass] 27.4 pg 27.0-32.0 [facility] Nucleated RBC/100 WBC (Bld) [Ratio] 0 % 0-5 [facility] MCHC Auto (RBC) [Mass/Vol]Or dered By: Brandon Adames on 02-03-2023 MCHC (RBC) [Mass/Vol] 31.9 g/dL 32-36 [facility] No Panel InformationOrdered By: Brandon Adames on 02-03-2023 Estimated Creatinine Clearance Calc 115.58 ml/min [facility] Estimated GFR (MDRD) Amer 148 mL/min >60 [facility] Comment on above: GFR Calc Estimated GFR (MDRD) Non-Af Amer 122 mL/min >60 [facility] Comment on above: Non- GFR Calc No Panel InformationOrdered By: Michael Kinsey on 02-03-2023 Troponin I High Sensitivity 26 pg/mL 3.0-54.0 [facility] Comment on above: Please Note: New Junie t Units and Gender Specific Reference Ranges. For more information see Policy Stat Procedure Nerinx High Sensitivity Troponin (TNIH) and attachments. Platelets bldOrdered By: Yamil Adames on 02-03-2023 Platelets (Bld) [#/Vol] 226 10*3/uL 150-450 [facility] Serum or plasma calcium xiomara urement (mass/volume)Ordered By: Brandon Adames on 02-03-2023 Calcium [Mass/Vol] 8.3 mg/dL 8.5-10.1 [facility] Serum or plasma creatinine m easurement (mass/volume)Ordered By: Brandon Adames on 02-03-2023 Creatinine [Mass/Vol] 0.56 mg/dL 0.55-1.02 [facility] Comment on above: The validity of the calculated GFR & GFRAA in patients over 70 years has not been determined. Clinical correlation is essential. Serum or plasma urea nitroge n measurement (mass/volume)Ordered By: Brandon Adames on 02-03-2023 Urea nitrogen [Mass/Vol] 7 mg/dL 7-18 [facility] Thin prep Papanicolaou smear with manual screeningOrdered By: Brandon Adames on 02-03-2023 Thin prep Papanicolaou smear with manual screening 5 5-15 [facility] Absolute lymphocyte countOrd ered By: Zack Card on 02-02-2023 Lymphocytes Auto (Unsp spec) [#/Vol] 1.45 10*3/uL 0.83-4.51 [facility] Basophil percentageOrdered B y: Zack Card on 02-02-2023 Basophils/100 WBC (Bld) 1.1 % 0-1 [facility] Chloride [Moles/Vol] 104 mmol/L 98-107 [facility] Eosinophils/100 WBC (Bld) 3.9 % 0-5 [facility] Glucose [Mass/Vol] 249 mg/dL 74-106 [facility] Comment on above: Glucose result great er than or equal to 200 mg/dLsuggests DIABETES MELLITUS per A.D.A. criteria. Neutrophils (Bld) [#/Vol] 5.5 10*3/uL 2.0-7.7 [facility] Neutrophils/100 WBC (Bld) 70.1 % 47-70 [facility] Potassium [Moles/Vol] 3.6 mmol/L 3.5-5.1 [facility] Sodium [Moles/Vol] 138 mmol/L 136-145 [facility] WBC (Bld) [#/Vol] 7.9 10*3/uL 4.4-11.0 [facility] Blood erythrocytes count (nu mber/volume)Ordered By: Zack Card on 02-02-2023 RBC (Bld) [#/Vol] 4.79 10*6/uL 4.2-5.4 [facility] Blood hemoglobin measurement (mass/volume)Ordered By: Zack Card on 02-02-2023 Hemoglobin (Bld) [Mass/Vol] 13.2 g/dL 12.0-15.0 [facility] Blood lymphocytes/100 leukoc ytesOrdered By: Zack Card on 02-02-2023 Lymphocytes/100 WBC (Bld) 18.4 % 19-41 [facility] Blood monocytes/100 leukocyt esOrdered By: Zack Card on 02-02-2023 Monocytes/100 WBC (Bld) 6.1 % 0-10 [facility] Blood platelet mean volumeOr dered By: Zack Card on 02-02-2023 Platelet mean volume (Bld) [Entitic vol] 10.6 fL 6.2-12.0 [facility] Determination of erythrocyte mean corpuscular volume (MCV)Ordered By: Zack Card on 02-02-2023 MCV (RBC) [Entitic vol] 87.3 fL 81-99 [facility] Hematocrit Auto (Bld) [Volum e fraction]Ordered By: Zack Card on 02-02-2023 Hematocrit (Bld) [Volume fraction] 41.8 % 37-47 [facility] - Chemistry and C hemistry - challengeOrdered By: Zack Card on 02-02-2023 CO2 [Moles/Vol] 30.0 mmol/L 21.0-32.0 [facility] Natriuretic peptide B (Bld) [Mass/Vol] 498.2 pg/mL 0-100 [facility] Urea nitrogen/Creatinine [Mass ratio] 11.7 mg/mg 10-20 [facility] - Hematology and Cell countsOrdered By: Zack Card on 02-02-2023 Erythrocyte distribution width (RBC) [Entitic vol] 41.2 fL 35.1-43.9 [facility] Erythrocyte distribution width (RBC) [Ratio] 13.0 % 11.6-14.6 [facility] Immature granulocytes/100 WBC (Bld) 0.400 % 0.0-0.9 [facility] Comment on above: IG% - Immature Granu locytes (promyelocytes, myelocytes and metamyelocytes) > 1% indicates that a LEFT SHIFT is Present. MCH (RBC) [Entitic mass] 27.6 pg 27.0-32.0 [facility] Nucleated RBC/100 WBC (Bld) [Ratio] 0 % 0-5 [facility] MCHC Auto (RBC) [Mass/Vol]Or dered By: Zack Card on 02-02-2023 MCHC (RBC) [Mass/Vol] 31.6 g/dL 32-36 [facility] No Panel InformationOrdered By: Zack Card on 02-02-2023 Troponin I High Sensitivity 24 pg/mL 3.0-54.0 [facility] Comment on above: Please Note: New Junie t Units and Gender Specific Reference Ranges. For more information see Policy Stat Procedure Nerinx High Sensitivity Troponin (TNIH) and attachments. D-Dimer Quantitative (PE/DVT) 0.99 FEU/ug/m 0.27-0.49 [facility] Comment on above: D-Dimer ELEVATED (>0 .49): Additional studies and clinicalassessments are indicated to conclude diagnosis of:Deep Vein Thrombosis (DVT) or Pulmonary Embolism (PE) Estimated Creatinine Clearance Calc 90.30 ml/min [facility] Estimated GFR (MDRD) Amer 116 mL/min >60 [facility] Comment on above: GFR Calc Estimated GFR (MDRD) Non-Af Amer 96 mL/min >60 [facility] Comment on above: Non- GFR Calc Platelets bldOrdered By: Sanjay Card on 02-02-2023 Platelets (Bld) [#/Vol] 238 10*3/uL 150-450 [facility] Serum or plasma calcium xiomara urement (mass/volume)Ordered By: Zack Card on 02-02-2023 Calcium [Mass/Vol] 8.9 mg/dL 8.5-10.1 [facility] Serum or plasma creatinine m easurement (mass/volume)Ordered By: Zack Card on 02-02-2023 Creatinine [Mass/Vol] 0.69 mg/dL 0.55-1.02 [facility] Comment on above: The validity of the calculated GFR & GFRAA in patients over 70 years has not been determined. Clinical correlation is essential. Serum or plasma urea nitroge n measurement (mass/volume)Ordered By: Zack Card on 02-02-2023 Urea nitrogen [Mass/Vol] 8 mg/dL 7-18 [facility] Thin prep Papanicolaou smear with manual screeningOrdered By: Zack Card on 02-02-2023 Thin prep Papanicolaou smear with manual screening 4 5-15 [facility] Glucose Glucometer (BldC) [M ass/Vol]Ordered By: Sabina Rosenberg on 01-03-2023 Glucose [Mass/Vol] 154 mg/dL 74-106 [facility] Comment on above: MANAGEMENT OF PATIEN T CARE PER NURSING PROTOCOL Basophil percentageOrdered B y: Sabina Rosenberg on 01-02-2023 Chloride [Moles/Vol] 100 mmol/L 98-107 [facility] Glucose [Mass/Vol] 293 mg/dL 74-106 [facility] Comment on above: Glucose result great er than or equal to 200 mg/dLsuggests DIABETES MELLITUS per A.D.A. criteria. Potassium [Moles/Vol] 3.7 mmol/L 3.5-5.1 [facility] Sodium [Moles/Vol] 136 mmol/L 136-145 [facility] - Chemistry and C hemistry - challengeOrdered By: Sabina Rosenberg on 01-02-2023 CO2 [Moles/Vol] 30.0 mmol/L 21.0-32.0 [facility] Urea nitrogen/Creatinine [Mass ratio] 8.3 mg/mg 10-20 [facility] No Panel InformationOrdered By: Sabina Rosenberg on 01-02-2023 Estimated Creatinine Clearance Calc 86.54 ml/min [facility] Estimated GFR (MDRD) Amer 109 mL/min >60 [facility] Comment on above: GFR Calc Estimated GFR (MDRD) Non-Af Amer 90 mL/min >60 [facility] Comment on above: Non- GFR Calc Serum or plasma calcium xiomara urement (mass/volume)Ordered By: Sabina Rosenberg on 01-02-2023 Calcium [Mass/Vol] 8.7 mg/dL 8.5-10.1 [facility] Serum or plasma creatinine m easurement (mass/volume)Ordered By: Sabina Rosenberg on 01-02-2023 Creatinine [Mass/Vol] 0.72 mg/dL 0.55-1.02 [facility] Comment on above: The validity of the calculated GFR & GFRAA in patients over 70 years has not been determined. Clinical correlation is essential. Serum or plasma urea nitroge n measurement (mass/volume)Ordered By: Sabina Rosenberg on 01-02-2023 Urea nitrogen [Mass/Vol] 6 mg/dL 7-18 [facility] Thin prep Papanicolaou smear with manual screeningOrdered By: Sabina Rosenberg on 01-02-2023 Thin prep Papanicolaou smear with manual screening 6 5-15 [facility] Absolute lymphocyte countOrd ered By: Yvette Hanley on 01-01-2023 Lymphocytes Auto (Unsp spec) [#/Vol] 1.39 10*3/uL 0.83-4.51 [facility] Basophil percentageOrdered B y: Yvette Hanley on 01-01-2023 Basophils/100 WBC (Bld) 0.8 % 0-1 [facility] Chloride [Moles/Vol] 104 mmol/L 98-107 [facility] Eosinophils/100 WBC (Bld) 2.7 % 0-5 [facility] Glucose [Mass/Vol] 344 mg/dL 74-106 [facility] Comment on above: Glucose result great er than or equal to 200 mg/dLsuggests DIABETES MELLITUS per A.D.A. criteria. Neutrophils (Bld) [#/Vol] 6.5 10*3/uL 2.0-7.7 [facility] Neutrophils/100 WBC (Bld) 75.1 % 47-70 [facility] Potassium [Moles/Vol] 4.0 mmol/L 3.5-5.1 [facility] Sodium [Moles/Vol] 136 mmol/L 136-145 [facility] WBC (Bld) [#/Vol] 8.7 10*3/uL 4.4-11.0 [facility] Blood erythrocytes count (nu mber/volume)Ordered By: Yvette Hanley on 01-01-2023 RBC (Bld) [#/Vol] 5.13 10*6/uL 4.2-5.4 [facility] Blood hemoglobin measurement (mass/volume)Ordered By: Yvette Hanley on 01-01-2023 Hemoglobin (Bld) [Mass/Vol] 14.0 g/dL 12.0-15.0 [facility] Blood lymphocytes/100 leukoc ytesOrdered By: Sallie Talon on 01-01-2023 Lymphocytes/100 WBC (Bld) 16.1 % 19-41 [facility] Blood monocytes/100 leukocyt esOrdered By: Yvette Hanley on 01-01-2023 Monocytes/100 WBC (Bld) 5.0 % 0-10 [facility] Blood platelet mean volumeOr dered By: Yvette Hanley on 01-01-2023 Platelet mean volume (Bld) [Entitic vol] 9.5 fL 6.2-12.0 [facility] Determination of erythrocyte mean corpuscular volume (MCV)Ordered By: Yvette Hanley on 01-01-2023 MCV (RBC) [Entitic vol] 84.2 fL 81-99 [facility] Hematocrit Auto (Bld) [Volum e fraction]Ordered By: Yvette Hanley on 01-01-2023 Hematocrit (Bld) [Volume fraction] 43.2 % 37-47 [facility] Influenza virus A and B and SARS-CoV-2 (COVID-19) Ag panel - Upper respiratory specimOrdered By: Ridgefield Talon on 01-01-2023 SARS-CoV-2 (COVID-19) RNA CRISSY+probe Ql (Resp) [facility] SARS-CoV-2 (COVID-19) RNA CRISSY+probe Ql (Resp) [facility] - Chemistry and C hemistry - challengeOrdered By: Yvette Hanley on 01-01-2023 Natriuretic peptide B (Bld) [Mass/Vol] 573.6 pg/mL 0-100 [facility] CO2 [Moles/Vol] 27.0 mmol/L 21.0-32.0 [facility] Urea nitrogen/Creatinine [Mass ratio] 8.2 mg/mg 10-20 [facility] - Hematology and Cell countsOrdered By: Yvette Hanley on 01-01-2023 Erythrocyte distribution width (RBC) [Entitic vol] 42.1 fL 35.1-43.9 [facility] Erythrocyte distribution width (RBC) [Ratio] 13.7 % 11.6-14.6 [facility] Immature granulocytes/100 WBC (Bld) 0.300 % 0.0-0.9 [facility] Comment on above: IG% - Immature Granu locytes (promyelocytes, myelocytes and metamyelocytes) > 1% indicates that a LEFT SHIFT is Present. MCH (RBC) [Entitic mass] 27.3 pg 27.0-32.0 [facility] Nucleated RBC/100 WBC (Bld) [Ratio] 0 % 0-5 [facility] MCHC Auto (RBC) [Mass/Vol]Or dered By: Yvette Hanley on 01-01-2023 MCHC (RBC) [Mass/Vol] 32.4 g/dL 32-36 [facility] No Panel InformationOrdered By: Yvette Hanley on 01-01-2023 Troponin I High Sensitivity 12 pg/mL 3.0-54.0 [facility] Comment on above: Please Note: New Junie t Units and Gender Specific Reference Ranges. For more information see Policy Stat Procedure Nerinx High Sensitivity Troponin (TNIH) and attachments. Estimated Creatinine Clearance Calc 84.20 ml/min [facility] Estimated GFR (MDRD) Amer 107 mL/min >60 [facility] Comment on above: GFR Calc Estimated GFR (MDRD) Non-Af Amer 88 mL/min >60 [facility] Comment on above: Non- GFR Calc Platelets bldOrdered By: Sallie Hanley on 01-01-2023 Platelets (Bld) [#/Vol] 201 10*3/uL 150-450 [facility] Serum or plasma calcium xiomara urement (mass/volume)Ordered By: Yvette Hanley on 01-01-2023 Calcium [Mass/Vol] 8.7 mg/dL 8.5-10.1 [facility] Serum or plasma creatinine m easurement (mass/volume)Ordered By: Yvette Hanley on 01-01-2023 Creatinine [Mass/Vol] 0.74 mg/dL 0.55-1.02 [facility] Comment on above: The validity of the calculated GFR & GFRAA in patients over 70 years has not been determined. Clinical correlation is essential. Serum or plasma urea nitroge n measurement (mass/volume)Ordered By: Yvette Hanley on 01-01-2023 Urea nitrogen [Mass/Vol] 6 mg/dL 7-18 [facility] Thin prep Papanicolaou smear with manual screeningOrdered By: Yvette Hanley on 01-01-2023 Thin prep Papanicolaou smear with manual screening 5 5-15 [facility] Absolute lymphocyte countOrd ered By: Dr. Card on 09-18-2022 Lymphocytes Auto (Unsp spec) [#/Vol] 1.74 10*3/uL 0.83-4.51 [facility] Basophil percentageOrdered B y: Dr. Card on 09-18-2022 Basophil percentage 425 mg/dL 74-106 [facility] Basophil percentage 6.7 g/dL 6.4-8.2 [facility] Basophil percentage 0.70 mg/dL 0.20-1.00 [facility] Basophil percentage 132 mmol/L 136-145 [facility] Basophil percentage 4.7 mmol/L 3.5-5.1 [facility] Basophil percentage 100 mmol/L 98-107 [facility] Basophils (Bld) [#/Vol] 9.5 10*3/uL 4.4-11.0 [facility] Basophils (Bld) [#/Vol] 7.1 10*3/uL 2.0-7.7 [facility] Basophils/100 WBC (Bld) 74.8 % 47-70 [facility] Basophils/100 WBC (Bld) 0.7 % 0-5 [facility] Basophils/100 WBC (Bld) 0.4 % 0-1 [facility] Basophil percentageOrdered B y: Zack Card on 09-18-2022 Bilirubin [Mass/Vol] 0.70 mg/dL 0.20-1.00 [facility] Comment on above: For patients on eltr ombopag therapy, use of Dimension Nerinx TBIL is not recommended. Chloride [Moles/Vol] 100 mmol/L 98-107 [facility] Glucose [Mass/Vol] 425 mg/dL 74-106 [facility] Comment on above: Glucose result great er than or equal to 200 mg/dLsuggests DIABETES MELLITUS per A.D.A. criteria. Potassium [Moles/Vol] 4.7 mmol/L 3.5-5.1 [facility] Protein [Mass/Vol] 6.7 g/dL 6.4-8.2 [facility] Sodium [Moles/Vol] 132 mmol/L 136-145 [facility] Eosinophils/100 WBC (Bld) 0.7 % 0-5 [facility] Neutrophils (Bld) [#/Vol] 7.1 10*3/uL 2.0-7.7 [facility] Neutrophils/100 WBC (Bld) 74.8 % 47-70 [facility] WBC (Bld) [#/Vol] 9.5 10*3/uL 4.4-11.0 [facility] Blood erythrocytes count (nu mber/volume)Ordered By: Dr. Card on 09-18-2022 RBC (Bld) [#/Vol] 6.20 10*6/uL 4.2-5.4 [facility] Blood hemoglobin measurement (mass/volume)Ordered By: Dr. Card on 09-18-2022 Hemoglobin (Bld) [Mass/Vol] 17.0 g/dL 12.0-15.0 [facility] Blood lymphocytes/100 leukoc ytesOrdered By: Dr. Card on 09-18-2022 Lymphocytes/100 WBC (Bld) 18.4 % 19-41 [facility] Blood monocytes/100 leukocyt esOrdered By: Dr. Card on 09-18-2022 Monocytes/100 WBC (Bld) 5.3 % 0-10 [facility] Blood platelet mean volumeOr dered By: Dr. Card on 09-18-2022 Platelet mean volume (Bld) [Entitic vol] 9.4 fL 6.2-12.0 [facility] Determination of erythrocyte mean corpuscular volume (MCV)Ordered By: Dr. Card on 09-18-2022 MCV (RBC) [Entitic vol] 82.7 fL 81-99 [facility] Direct bilirubinOrdered By: Dr. Card on 09-18-2022 Bilirubin.direct [Mass/Vol] 0.18 mg/dL 0.00-0.30 [facility] Glucose Glucometer (BldC) [M ass/Vol]Ordered By: Dr. Card on 09-18-2022 Glucose [Mass/Vol] 281 mg/dL 74-106 [facility] Comment on above: MANAGEMENT OF PATIEN T CARE PER NURSING PROTOCOL Hematocrit Auto (Bld) [Volum e fraction]Ordered By: Dr. Card on 09-18-2022 Hematocrit (Bld) [Volume fraction] 51.3 % 37-47 [facility] - Chemistry and C hemistry - challengeOrdered By: Zack Card on 09-18-2022 ALP [Catalytic activity/Vol] 111 U/L 45-117 [facility] ALT [Catalytic activity/Vol] 19 U/L 13-56 [facility] CO2 [Moles/Vol] 30.0 mmol/L 21.0-32.0 [facility] Globulin (S) [Mass/Vol] 3.9 g/dL 2.2-4.2 [facility] Lipase [Catalytic activity/Vol] 27 U/L 13-75 [facility] Comment on above: Please note:LIPASE r evised reference range effective 22. New Lipase methodology. Expected to produce lower values than the previous assay method. NEW Reference Range: 13 - 75 U/L Urea nitrogen/Creatinine [Mass ratio] 18.2 mg/mg 10-20 [facility] - Hematology and Cell countsOrdered By: Zack Card on 09-18-2022 Erythrocyte distribution width (RBC) [Entitic vol] 38.1 fL 35.1-43.9 [facility] Erythrocyte distribution width (RBC) [Ratio] 12.7 % 11.6-14.6 [facility] Immature granulocytes/100 WBC (Bld) 0.400 % 0.0-0.9 [facility] Comment on above: IG% - Immature Granu locytes (promyelocytes, myelocytes and metamyelocytes) > 1% indicates that a LEFT SHIFT is Present. MCH (RBC) [Entitic mass] 27.4 pg 27.0-32.0 [facility] Nucleated RBC/100 WBC (Bld) [Ratio] 0 % 0-5 [facility] MCHC Auto (RBC) [Mass/Vol]Or dered By: Dr. Card on 09-18-2022 MCHC (RBC) [Mass/Vol] 33.1 g/dL 32-36 [facility] No Panel InformationOrdered By: Zack Card on 09-18-2022 Estimated Creatinine Clearance Calc 62.94 ml/min [facility] Estimated GFR (MDRD) Amer 76 mL/min >60 [facility] Comment on above: GFR Calc Estimated GFR (MDRD) Non-Af Amer 63 mL/min >60 [facility] Comment on above: Non- GFR Calc No Panel InformationOrdered By: Dr. Card on 09-18-2022 63 mL/min >60 [facility] 76 mL/min >60 [facility] 62.94 ml/min [facility] 18.2 RATIO 10-20 [facility] 3.9 g/dL 2.2-4.2 [facility] 27 U/L 13-75 [facility] 111 U/L 45-117 [facility] 19 U/L 13-56 [facility] 30.0 mmol/L 21.0-32.0 [facility] 27.4 pg 27.0-32.0 [facility] 12.7 % 11.6-14.6 [facility] 38.1 fl 35.1-43.9 [facility] 0.400 % 0.0-0.9 [facility] 0 % 0-5 [facility] Platelets bldOrdered By: Dr. Card on 09-18-2022 Platelets (Bld) [#/Vol] 268 10*3/uL 150-450 [facility] Serum or plasma albumin xiomara urement (mass/volume)Ordered By: Dr. Card on 09-18-2022 Albumin [Mass/Vol] 2.8 g/dL 3.2-5.0 [facility] Serum or plasma albumin/glob ulin mass ratioOrdered By: Dr. Card on 09-18-2022 Albumin/Globulin [Mass ratio] 0.7 {ratio} 0.9-2.4 [facility] Serum or plasma calcium xiomara urement (mass/volume)Ordered By: Dr. Card on 09-18-2022 Calcium [Mass/Vol] 9.0 mg/dL 8.5-10.1 [facility] Serum or plasma creatinine m easurement (mass/volume)Ordered By: Dr. Card on 09-18-2022 Creatinine [Mass/Vol] 0.99 mg/dL 0.55-1.02 [facility] Comment on above: The validity of the calculated GFR & GFRAA in patients over 70 years has not been determined. Clinical correlation is essential. Serum or plasma urea nitroge n measurement (mass/volume)Ordered By: Dr. Card on 09-18-2022 Urea nitrogen [Mass/Vol] 18 mg/dL 7-18 [facility] Thin prep Papanicolaou smear with manual screeningOrdered By: Dr. Card on 09-18-2022 Thin prep Papanicolaou smear with manual screening 14 U/L 15-37 [facility] Thin prep Papanicolaou smear with manual screening 2 5-15 [facility] Absolute lymphocyte countOrd ered By: Dr. Black on 09-11-2022 Lymphocytes Auto (Unsp spec) [#/Vol] 1.13 10*3/uL 0.83-4.51 [facility] Basophil percentageOrdered B y: Dr. Black on 09-11-2022 Basophil percentage 325 mg/dL 74-106 [facility] Basophil percentage 7.1 g/dL 6.4-8.2 [facility] Basophil percentage 0.60 mg/dL 0.20-1.00 [facility] Basophil percentage 134 mmol/L 136-145 [facility] Basophil percentage 3.9 mmol/L 3.5-5.1 [facility] Basophil percentage 100 mmol/L 98-107 [facility] Basophil percentage 1.2 mmol/L 0.4-2.0 [facility] Basophils (Bld) [#/Vol] 14.8 10*3/uL 4.4-11.0 [facility] Basophils (Bld) [#/Vol] 12.7 10*3/uL 2.0-7.7 [facility] Basophils/100 WBC (Bld) 85.8 % 47-70 [facility] Basophils/100 WBC (Bld) 0.8 % 0-5 [facility] Basophils/100 WBC (Bld) 0.6 % 0-1 [facility] Bilirubin [Mass/Vol] 0.60 mg/dL 0.20-1.00 [facility] Comment on above: For patients on eltr ombopag therapy, use of Dimension Nerinx TBIL is not recommended. Chloride [Moles/Vol] 100 mmol/L 98-107 [facility] Eosinophils/100 WBC (Bld) 0.8 % 0-5 [facility] Glucose [Mass/Vol] 325 mg/dL 74-106 [facility] Comment on above: Glucose result great er than or equal to 200 mg/dLsuggests DIABETES MELLITUS per A.D.A. criteria. Lactate [Moles/Vol] 1.2 mmol/L 0.4-2.0 [facility] Neutrophils (Bld) [#/Vol] 12.7 10*3/uL 2.0-7.7 [facility] Neutrophils/100 WBC (Bld) 85.8 % 47-70 [facility] Potassium [Moles/Vol] 3.9 mmol/L 3.5-5.1 [facility] Protein [Mass/Vol] 7.1 g/dL 6.4-8.2 [facility] Sodium [Moles/Vol] 134 mmol/L 136-145 [facility] WBC (Bld) [#/Vol] 14.8 10*3/uL 4.4-11.0 [facility] Basophil percentage 0 SEEN /hpf 0-5 [facility] Bilirubin Test strip Ql (U)O rdered By: Dr. Black on 09-11-2022 Bilirubin Ql (U) Negative Negative [facility] Blood erythrocytes count (nu mber/volume)Ordered By: Dr. Black on 09-11-2022 RBC (Bld) [#/Vol] 5.71 10*6/uL 4.2-5.4 [facility] Blood hemoglobin measurement (mass/volume)Ordered By: Dr. Black on 09-11-2022 Hemoglobin (Bld) [Mass/Vol] 15.7 g/dL 12.0-15.0 [facility] Blood lymphocytes/100 leukoc ytesOrdered By: Dr. Black on 09-11-2022 Lymphocytes/100 WBC (Bld) 7.6 % 19-41 [facility] Blood monocytes/100 leukocyt esOrdered By: Dr. Black on 09-11-2022 Monocytes/100 WBC (Bld) 4.7 % 0-10 [facility] Blood platelet mean volumeOr dered By: Dr. Black on 09-11-2022 Platelet mean volume (Bld) [Entitic vol] 9.3 fL 6.2-12.0 [facility] Determination of erythrocyte mean corpuscular volume (MCV)Ordered By: Dr. Black on 09-11-2022 MCV (RBC) [Entitic vol] 83.7 fL 81-99 [facility] Hematocrit Auto (Bld) [Volum e fraction]Ordered By: Dr. Black on 09-11-2022 Hematocrit (Bld) [Volume fraction] 47.8 % 37-47 [facility] Ketones Test strip Ql (U)Ord ered By: Dr. Black on 09-11-2022 Ketones Ql (U) Negative Negative [facility] - Chemistry and C hemistry - challengeOrdered By: Dr. Black on 09-11-2022 ALP [Catalytic activity/Vol] 115 U/L 45-117 [facility] ALT [Catalytic activity/Vol] 21 U/L 13-56 [facility] CO2 [Moles/Vol] 31.0 mmol/L 21.0-32.0 [facility] Globulin (S) [Mass/Vol] 4.1 g/dL 2.2-4.2 [facility] Lipase [Catalytic activity/Vol] 172 U/L 73-393 [facility] Urea nitrogen/Creatinine [Mass ratio] 14.1 mg/mg 10-20 [facility] - Hematology and Cell countsOrdered By: Dr. Black on 09-11-2022 Erythrocyte distribution width (RBC) [Entitic vol] 38.4 fL 35.1-43.9 [facility] Erythrocyte distribution width (RBC) [Ratio] 12.8 % 11.6-14.6 [facility] Immature granulocytes/100 WBC (Bld) 0.500 % 0.0-0.9 [facility] Comment on above: IG% - Immature Granu locytes (promyelocytes, myelocytes and metamyelocytes) > 1% indicates that a LEFT SHIFT is Present. MCH (RBC) [Entitic mass] 27.5 pg 27.0-32.0 [facility] Nucleated RBC/100 WBC (Bld) [Ratio] 0 % 0-5 [facility] MCHC Auto (RBC) [Mass/Vol]Or dered By: Dr. Black on 09-11-2022 MCHC (RBC) [Mass/Vol] 32.8 g/dL 32-36 [facility] Mucus LM Ql (Urine sed)Order ed By: Dr. Black on 09-11-2022 Mucus Ql (Urine sed) 0 SEEN /hpf [facility] Nitrite Test strip Ql (U)Ord ered By: Dr. Black on 09-11-2022 Nitrite Ql (U) Negative Negative [facility] No Panel InformationOrdered By: Dr. Black on 09-11-2022 Estimated Creatinine Clearance Calc 91.16 ml/min [facility] Estimated GFR (MDRD) Amer 112 mL/min >60 [facility] Comment on above: GFR Calc Estimated GFR (MDRD) Non-Af Amer 93 mL/min >60 [facility] Comment on above: Non- GFR Calc 27.5 pg 27.0-32.0 [facility] 12.8 % 11.6-14.6 [facility] 38.4 fl 35.1-43.9 [facility] 0.500 % 0.0-0.9 [facility] 0 % 0-5 [facility] 93 mL/min >60 [facility] 112 mL/min >60 [facility] 91.16 ml/min [facility] 14.1 RATIO 10-20 [facility] 4.1 g/dL 2.2-4.2 [facility] 172 U/L 73-393 [facility] 115 U/L 45-117 [facility] 21 U/L 13-56 [facility] 31.0 mmol/L 21.0-32.0 [facility] Platelets bldOrdered By: Dr. Black on 09-11-2022 Platelets (Bld) [#/Vol] 290 10*3/uL 150-450 [facility] Protein Test strip Ql (U)Ord ered By: Dr. Black on 09-11-2022 Protein Ql (U) 100 mg/dl Negative [facility] Serum or plasma albumin xiomara urement (mass/volume)Ordered By: Dr. Black on 09-11-2022 Albumin [Mass/Vol] 3.0 g/dL 3.2-5.0 [facility] Serum or plasma albumin/glob ulin mass ratioOrdered By: Dr. Black on 09-11-2022 Albumin/Globulin [Mass ratio] 0.7 {ratio} 0.9-2.4 [facility] Serum or plasma calcium xiomara urement (mass/volume)Ordered By: Dr. Black on 09-11-2022 Calcium [Mass/Vol] 8.9 mg/dL 8.5-10.1 [facility] Serum or plasma creatinine m easurement (mass/volume)Ordered By: Dr. Black on 09-11-2022 Creatinine [Mass/Vol] 0.71 mg/dL 0.55-1.02 [facility] Comment on above: The validity of the calculated GFR & GFRAA in patients over 70 years has not been determined. Clinical correlation is essential. Serum or plasma urea nitroge n measurement (mass/volume)Ordered By: Dr. Black on 09-11-2022 Urea nitrogen [Mass/Vol] 10 mg/dL 7-18 [facility] Squamous epithelial cells de tection in urine sediment by light microscopyOrdered By: Dr. Black on 09-11-2022 Epithelial cells.squamous LM Ql (Urine sed) 0-5 SEEN /hpf 5-10 [facility] Thin prep Papanicolaou smear with manual screeningOrdered By: Dr. Black on 09-11-2022 Thin prep Papanicolaou smear with manual screening 18 U/L 15-37 [facility] Thin prep Papanicolaou smear with manual screening 3 5-15 [facility] Urine blood detectionOrdered By: Dr. Black on 09-11-2022 RBC Ql (U) 25 /ul Negative [facility] RBC Ql (U) 0 SEEN /hpf 0-5 [facility] Urine clarityOrdered By: Dr. Black on 09-11-2022 Clarity (U) Clear Clear [facility] Urine color determinationOrd ered By: Dr. Black on 09-11-2022 Color (U) Yellow Yellow [facility] Urine glucose detectionOrder ed By: Dr. Black on 09-11-2022 Glucose Ql (U) 1000 mg/dl Normal [facility] Urine leukocyte esterase det ection by dipstickOrdered By: Dr. Black on 09-11-2022 Leukocyte esterase Test strip Ql (U) Negative Negative [facility] Urine pHOrdered By: Dr. Artemio jean on 09-11-2022 pH (U) 7.0 [pH] 5.0 - 8.0 [facility] Urine sediment bacteria coun t by microscopy (number/high power field)Ordered By: Dr. Black on 09-11-2022 Bacteria LM.HPF (Urine sed) [#/Area] 0 /[HPF] None Seen [facility] Urine specific gravity measu rementOrdered By: Dr. Black on 09-11-2022 Specific gravity (U) [Rel density] 1.015 1.002-1.03 0 [facility] Urobilinogen Auto test strip Ql (U)Ordered By: Dr. Black on 09-11-2022 Urobilinogen Ql (U) Normal mg/dl Normal [facility] Absolute lymphocyte countOrd ered By: Dr. Christina on 09-09-2022 Lymphocytes Auto (Unsp spec) [#/Vol] 1.70 10*3/uL 0.83-4.51 [facility] Basophil percentageOrdered B y: Dr. Christina on 09-09-2022 Basophil percentage 0-5 SEEN /hpf 0-5 [facility] Basophil percentage 306 mg/dL 74-106 [facility] Basophil percentage 6.7 g/dL 6.4-8.2 [facility] Basophil percentage 0.70 mg/dL 0.20-1.00 [facility] Basophil percentage 134 mmol/L 136-145 [facility] Basophil percentage 3.5 mmol/L 3.5-5.1 [facility] Basophil percentage 98 mmol/L 98-107 [facility] Basophils (Bld) [#/Vol] 9.0 10*3/uL 4.4-11.0 [facility] Basophils (Bld) [#/Vol] 6.5 10*3/uL 2.0-7.7 [facility] Basophils/100 WBC (Bld) 1.0 % 0-1 [facility] Basophils/100 WBC (Bld) 72.3 % 47-70 [facility] Basophils/100 WBC (Bld) 1.4 % 0-5 [facility] Bilirubin [Mass/Vol] 0.70 mg/dL 0.20-1.00 [facility] Comment on above: For patients on eltr ombopag therapy, use of Dimension Nerinx TBIL is not recommended. Chloride [Moles/Vol] 98 mmol/L 98-107 [facility] Eosinophils/100 WBC (Bld) 1.4 % 0-5 [facility] Glucose [Mass/Vol] 306 mg/dL 74-106 [facility] Comment on above: Glucose result great er than or equal to 200 mg/dLsuggests DIABETES MELLITUS per A.D.A. criteria. Neutrophils (Bld) [#/Vol] 6.5 10*3/uL 2.0-7.7 [facility] Neutrophils/100 WBC (Bld) 72.3 % 47-70 [facility] Potassium [Moles/Vol] 3.5 mmol/L 3.5-5.1 [facility] Protein [Mass/Vol] 6.7 g/dL 6.4-8.2 [facility] Sodium [Moles/Vol] 134 mmol/L 136-145 [facility] WBC (Bld) [#/Vol] 9.0 10*3/uL 4.4-11.0 [facility] Bilirubin Test strip Ql (U)O rdered By: Dr. Christina on 09-09-2022 Bilirubin Ql (U) Negative Negative [facility] Blood erythrocytes count (nu mber/volume)Ordered By: Dr. Christina on 09-09-2022 RBC (Bld) [#/Vol] 5.26 10*6/uL 4.2-5.4 [facility] Blood hemoglobin measurement (mass/volume)Ordered By: Dr. Christina on 09-09-2022 Hemoglobin (Bld) [Mass/Vol] 14.3 g/dL 12.0-15.0 [facility] Blood lymphocytes/100 leukoc ytesOrdered By: Dr. Christina on 09-09-2022 Lymphocytes/100 WBC (Bld) 19.0 % 19-41 [facility] Blood monocytes/100 leukocyt esOrdered By: Dr. Christina on 09-09-2022 Monocytes/100 WBC (Bld) 6.0 % 0-10 [facility] Blood platelet mean volumeOr dered By: Dr. Christina on 09-09-2022 Platelet mean volume (Bld) [Entitic vol] 9.2 fL 6.2-12.0 [facility] Determination of erythrocyte mean corpuscular volume (MCV)Ordered By: Dr. Christina on 09-09-2022 MCV (RBC) [Entitic vol] 83.1 fL 81-99 [facility] Direct bilirubinOrdered By: Dr. Christina on 09-09-2022 Bilirubin.direct [Mass/Vol] 0.19 mg/dL 0.00-0.30 [facility] Hematocrit Auto (Bld) [Volum e fraction]Ordered By: Dr. Christina on 09-09-2022 Hematocrit (Bld) [Volume fraction] 43.7 % 37-47 [facility] Ketones Test strip Ql (U)Ord ered By: Dr. Christina on 09-09-2022 Ketones Ql (U) Negative Negative [facility] - Chemistry and C hemistry - challengeOrdered By: Dr. Christina on 09-09-2022 ALP [Catalytic activity/Vol] 109 U/L 45-117 [facility] ALT [Catalytic activity/Vol] 18 U/L 13-56 [facility] CO2 [Moles/Vol] 31.0 mmol/L 21.0-32.0 [facility] Globulin (S) [Mass/Vol] 3.9 g/dL 2.2-4.2 [facility] Lipase [Catalytic activity/Vol] 47 U/L 73-393 [facility] Urea nitrogen/Creatinine [Mass ratio] 9.0 mg/mg 10-20 [facility] - Hematology and Cell countsOrdered By: Dr. Christina on 09-09-2022 Erythrocyte distribution width (RBC) [Entitic vol] 38.2 fL 35.1-43.9 [facility] Erythrocyte distribution width (RBC) [Ratio] 12.7 % 11.6-14.6 [facility] Immature granulocytes/100 WBC (Bld) 0.300 % 0.0-0.9 [facility] Comment on above: IG% - Immature Granu locytes (promyelocytes, myelocytes and metamyelocytes) > 1% indicates that a LEFT SHIFT is Present. MCH (RBC) [Entitic mass] 27.2 pg 27.0-32.0 [facility] Nucleated RBC/100 WBC (Bld) [Ratio] 0 % 0-5 [facility] MCHC Auto (RBC) [Mass/Vol]Or dered By: Dr. Christina on 09-09-2022 MCHC (RBC) [Mass/Vol] 32.7 g/dL 32-36 [facility] Mucus LM Ql (Urine sed)Order ed By: Dr. Christina on 09-09-2022 Mucus Ql (Urine sed) 0 SEEN /hpf [facility] Nitrite Test strip Ql (U)Ord ered By: Dr. Christina on 09-09-2022 Nitrite Ql (U) Negative Negative [facility] No Panel InformationOrdered By: Dr. Christina on 09-09-2022 Estimated Creatinine Clearance Calc 96.60 ml/min [facility] Estimated GFR (MDRD) Amer 120 mL/min >60 [facility] Comment on above: GFR Calc Estimated GFR (MDRD) Non-Af Amer 99 mL/min >60 [facility] Comment on above: Non- GFR Calc Troponin I High Sensitivity 14 pg/mL 3.0-54.0 [facility] Comment on above: Please Note: New Junie t Units and Gender Specific Reference Ranges. For more information see Policy Stat Procedure Nerinx High Sensitivity Troponin (TNIH) and attachments. 27.2 pg 27.0-32.0 [facility] 12.7 % 11.6-14.6 [facility] 38.2 fl 35.1-43.9 [facility] 0.300 % 0.0-0.9 [facility] 0 % 0-5 [facility] 99 mL/min >60 [facility] 120 mL/min >60 [facility] 96.60 ml/min [facility] 9.0 RATIO 10-20 [facility] 3.9 g/dL 2.2-4.2 [facility] 47 U/L 73-393 [facility] 14 pg/mL 3.0-54.0 [facility] 109 U/L 45-117 [facility] 18 U/L 13-56 [facility] 31.0 mmol/L 21.0-32.0 [facility] Platelets bldOrdered By: Dr. Christina on 09-09-2022 Platelets (Bld) [#/Vol] 290 10*3/uL 150-450 [facility] Protein Test strip Ql (U)Ord ered By: Dr. Christina on 09-09-2022 Protein Ql (U) 100 mg/dl Negative [facility] Serum or plasma albumin xiomara urement (mass/volume)Ordered By: Dr. Christina on 09-09-2022 Albumin [Mass/Vol] 2.8 g/dL 3.2-5.0 [facility] Serum or plasma calcium xiomara urement (mass/volume)Ordered By: Dr. Christina on 09-09-2022 Calcium [Mass/Vol] 8.8 mg/dL 8.5-10.1 [facility] Serum or plasma creatinine m easurement (mass/volume)Ordered By: Dr. Christina on 09-09-2022 Creatinine [Mass/Vol] 0.67 mg/dL 0.55-1.02 [facility] Comment on above: The validity of the calculated GFR & GFRAA in patients over 70 years has not been determined. Clinical correlation is essential. Serum or plasma urea nitroge n measurement (mass/volume)Ordered By: Dr. Christina on 09-09-2022 Urea nitrogen [Mass/Vol] 6 mg/dL 7-18 [facility] Squamous epithelial cells de tection in urine sediment by light microscopyOrdered By: Dr. Christina on 09-09-2022 Epithelial cells.squamous LM Ql (Urine sed) 5-10 SEEN /hpf 5-10 [facility] Thin prep Papanicolaou smear with manual screeningOrdered By: Dr. Christina on 09-09-2022 Thin prep Papanicolaou smear with manual screening 18 U/L 15-37 [facility] Thin prep Papanicolaou smear with manual screening 5 5-15 [facility] Urine blood detectionOrdered By: Dr. Christina on 09-09-2022 RBC Ql (U) 25 /ul Negative [facility] RBC Ql (U) 0-5 SEEN /hpf 0-5 [facility] Urine clarityOrdered By: Dr. Christina on 09-09-2022 Clarity (U) Sl. Cloudy Clear [facility] Urine color determinationOrd ered By: Dr. Christina on 09-09-2022 Color (U) Yellow Yellow [facility] Urine glucose detectionOrder ed By: Dr. Christina on 09-09-2022 Glucose Ql (U) 1000 mg/dl Normal [facility] Urine leukocyte esterase det ection by dipstickOrdered By: Dr. Christina on 09-09-2022 Leukocyte esterase Test strip Ql (U) 25 /ul Negative [facility] Urine pHOrdered By: Dr. Davis maxwell on 09-09-2022 pH (U) 8.0 [pH] 5.0 - 8.0 [facility] Urine sediment bacteria coun t by microscopy (number/high power field)Ordered By: Dr. Christina on 09-09-2022 Bacteria LM.HPF (Urine sed) [#/Area] 0 /[HPF] None Seen [facility] Urine specific gravity measu rementOrdered By: Dr. Christina on 09-09-2022 Specific gravity (U) [Rel density] 1.015 1.002-1.03 0 [facility] Urobilinogen Auto test strip Ql (U)Ordered By: Dr. Christina on 09-09-2022 Urobilinogen Ql (U) Normal mg/dl Normal [facility] Absolute lymphocyte countOrd ered By: Dr. Hanley on 09-05-2022 Lymphocytes Auto (Unsp spec) [#/Vol] 1.04 10*3/uL 0.83-4.51 [facility] Basophil percentageOrdered B y: Dr. Hanley on 09-05-2022 Basophil percentage 330 mg/dL 74-106 [facility] Basophil percentage 134 mmol/L 136-145 [facility] Basophil percentage 3.7 mmol/L 3.5-5.1 [facility] Basophil percentage 100 mmol/L 98-107 [facility] Basophils (Bld) [#/Vol] 8.5 10*3/uL 4.4-11.0 [facility] Basophils (Bld) [#/Vol] 6.8 10*3/uL 2.0-7.7 [facility] Basophils/100 WBC (Bld) 0.8 % 0-1 [facility] Basophils/100 WBC (Bld) 80.1 % 47-70 [facility] Chloride [Moles/Vol] 100 mmol/L 98-[address] [facility] Eosinophils/100 WBC (Bld) 0.8 % 0-5 [facility] Glucose [Mass/Vol] 330 mg/dL 74-106 [facility] Comment on above: Glucose result great er than or equal to 200 mg/dLsuggests DIABETES MELLITUS per A.D.A. criteria. Neutrophils (Bld) [#/Vol] 6.8 10*3/uL 2.0-7.7 [facility] Neutrophils/100 WBC (Bld) 80.1 % 47-70 [facility] Potassium [Moles/Vol] 3.7 mmol/L 3.5-5.1 [facility] Sodium [Moles/Vol] 134 mmol/L 136-145 [facility] WBC (Bld) [#/Vol] 8.5 10*3/uL 4.4-11.0 [facility] Blood erythrocytes count (nu mber/volume)Ordered By: Dr. Hanley on 09-05-2022 RBC (Bld) [#/Vol] 5.21 10*6/uL 4.2-5.4 [facility] Blood hemoglobin measurement (mass/volume)Ordered By: Dr. Hanley on 09-05-2022 Hemoglobin (Bld) [Mass/Vol] 14.3 g/dL 12.0-15.0 [facility] Blood lymphocytes/100 leukoc ytesOrdered By: Dr. Hanley on 09-05-2022 Lymphocytes/100 WBC (Bld) 12.2 % 19-41 [facility] Blood monocytes/100 leukocyt esOrdered By: Dr. Hanley on 09-05-2022 Monocytes/100 WBC (Bld) 5.7 % 0-10 [facility] Blood platelet mean volumeOr dered By: Dr. Hanley on 09-05-2022 Platelet mean volume (Bld) [Entitic vol] 9.6 fL 6.2-12.0 [facility] Determination of erythrocyte mean corpuscular volume (MCV)Ordered By: Dr. Hanley on 09-05-2022 MCV (RBC) [Entitic vol] 84.3 fL 81-99 [facility] Hematocrit Auto (Bld) [Volum e fraction]Ordered By: Dr. Hanley on 09-05-2022 Hematocrit (Bld) [Volume fraction] 43.9 % 37-47 [facility] Laboratory - Chemistry and C hemistry - challengeOrdered By: Dr. Hanley on 09-05-2022 CO2 [Moles/Vol] 30.0 mmol/L 21.0-32.0 [facility] Urea nitrogen/Creatinine [Mass ratio] 5.7 mg/mg 10-20 [facility] - Hematology and Cell countsOrdered By: Dr. Hanley on 09-05-2022 Erythrocyte distribution width (RBC) [Entitic vol] 38.6 fL 35.1-43.9 [facility] Erythrocyte distribution width (RBC) [Ratio] 12.6 % 11.6-14.6 [facility] Immature granulocytes/100 WBC (Bld) 0.400 % 0.0-0.9 [facility] Comment on above: IG% - Immature Granu locytes (promyelocytes, myelocytes and metamyelocytes) > 1% indicates that a LEFT SHIFT is Present. MCH (RBC) [Entitic mass] 27.4 pg 27.0-32.0 [facility] Nucleated RBC/100 WBC (Bld) [Ratio] 0 % 0-5 [facility] - Microbiology an d Antimicrobial susceptibilityOrdered By: Dr. Rawls on 09-05-2022 Bacteria identified Cx Nom (Bld) No growth in 5 days. [facility] MCHC Auto (RBC) [Mass/Vol]Or dered By: Dr. Hanley on 09-05-2022 MCHC (RBC) [Mass/Vol] 32.6 g/dL 32-36 [facility] No Panel InformationOrdered By: Dr. Hanley on 09-05-2022 Estimated Creatinine Clearance Calc 92.46 ml/min [facility] Estimated GFR (MDRD) Amer 114 mL/min >60 [facility] Comment on above: GFR Calc Estimated GFR (MDRD) Non-Af Amer 94 mL/min >60 [facility] Comment on above: Non- GFR Calc 27.4 pg 27.0-32.0 [facility] 12.6 % 11.6-14.6 [facility] 38.6 fl 35.1-43.9 [facility] 0.400 % 0.0-0.9 [facility] 0 % 0-5 [facility] 94 mL/min >60 [facility] 114 mL/min >60 [facility] 92.46 ml/min [facility] 5.7 RATIO 10-20 [facility] 30.0 mmol/L 21.0-32.0 [facility] No Panel InformationOrdered By: Dr. Rawls on 09-05-2022 No growth in 5 days. [facility] Platelets bldOrdered By: Dr. Hanley on 09-05-2022 Platelets (Bld) [#/Vol] 234 10*3/uL 150-450 [facility] Serum or plasma calcium xiomara urement (mass/volume)Ordered By: Dr. Hanley on 09-05-2022 Calcium [Mass/Vol] 9.1 mg/dL 8.5-10.1 [facility] Serum or plasma creatinine m easurement (mass/volume)Ordered By: Dr. Hanley on 09-05-2022 Creatinine [Mass/Vol] 0.70 mg/dL 0.55-1.02 [facility] Comment on above: The validity of the calculated GFR & GFRAA in patients over 70 years has not been determined. Clinical correlation is essential. Serum or plasma urea nitroge n measurement (mass/volume)Ordered By: Dr. Hanley on 09-05-2022 Urea nitrogen [Mass/Vol] 4 mg/dL 7-18 [facility] Thin prep Papanicolaou smear with manual screeningOrdered By: Dr. Hanley on 09-05-2022 Thin prep Papanicolaou smear with manual screening 4 5-15 [facility] Glucose Glucometer (BldC) [M ass/Vol]Ordered By: Dr. Forde on 09-02-2022 Glucose [Mass/Vol] 211 mg/dL 74-106 [facility] Comment on above: MANAGEMENT OF PATIEN T CARE PER NURSING PROTOCOL Absolute lymphocyte countOrd ered By: Dr. Forde on 08-31-2022 Lymphocytes Auto (Unsp spec) [#/Vol] 1.81 10*3/uL 0.83-4.51 [facility] Bacteria identified Cx Nom ( U)Ordered By: Dr. Rawls on 08-31-2022 Culture, urine Positive [facility] Basophil percentageOrdered B y: Dr. Forde on 08-31-2022 Basophil percentage 221 mg/dL 74-106 [facility] Basophil percentage 137 mmol/L 136-145 [facility] Basophil percentage 3.7 mmol/L 3.5-5.1 [facility] Basophil percentage 108 mmol/L 98-107 [facility] Basophils (Bld) [#/Vol] 6.8 10*3/uL 4.4-11.0 [facility] Basophils (Bld) [#/Vol] 4.4 10*3/uL 2.0-7.7 [facility] Basophils/100 WBC (Bld) 0.7 % 0-1 [facility] Basophils/100 WBC (Bld) 64.6 % 47-70 [facility] Basophils/100 WBC (Bld) 1.3 % 0-5 [facility] Chloride [Moles/Vol] 108 mmol/L 98-107 [facility] Eosinophils/100 WBC (Bld) 1.3 % 0-5 [facility] Glucose [Mass/Vol] 221 mg/dL 74-106 [facility] Comment on above: Glucose result great er than or equal to 200 mg/dLsuggests DIABETES MELLITUS per A.D.A. criteria. Neutrophils (Bld) [#/Vol] 4.4 10*3/uL 2.0-7.7 [facility] Neutrophils/100 WBC (Bld) 64.6 % 47-70 [facility] Potassium [Moles/Vol] 3.7 mmol/L 3.5-5.1 [facility] Sodium [Moles/Vol] 137 mmol/L 136-145 [facility] WBC (Bld) [#/Vol] 6.8 10*3/uL 4.4-11.0 [facility] Blood erythrocytes count (nu mber/volume)Ordered By: Dr. Forde on 08-31-2022 RBC (Bld) [#/Vol] 4.86 10*6/uL 4.2-5.4 [facility] Blood hemoglobin measurement (mass/volume)Ordered By: Dr. Forde on 08-31-2022 Hemoglobin (Bld) [Mass/Vol] 13.6 g/dL 12.0-15.0 [facility] Blood lymphocytes/100 leukoc ytesOrdered By: Dr. Forde on 08-31-2022 Lymphocytes/100 WBC (Bld) 26.6 % 19-41 [facility] Blood monocytes/100 leukocyt esOrdered By: Dr. Forde on 08-31-2022 Monocytes/100 WBC (Bld) 6.5 % 0-10 [facility] Blood platelet mean volumeOr dered By: Dr. Forde on 08-31-2022 Platelet mean volume (Bld) [Entitic vol] 9.1 fL 6.2-12.0 [facility] Culture, urineOrdered By: Dr Carmelo Rawls on 08-31-2022 Bacteria identified Cx Nom (U) Positive [facility] Determination of erythrocyte mean corpuscular volume (MCV)Ordered By: Dr. Forde on 08-31-2022 MCV (RBC) [Entitic vol] 85.4 fL 81-99 [facility] Hematocrit Auto (Bld) [Volum e fraction]Ordered By: Dr. Forde on 08-31-2022 Hematocrit (Bld) [Volume fraction] 41.5 % 37-47 [facility] Laboratory - Chemistry and C hemistry - challengeOrdered By: Dr. Forde on 08-31-2022 CO2 [Moles/Vol] 26.0 mmol/L 21.0-32.0 [facility] Urea nitrogen/Creatinine [Mass ratio] 14.6 mg/mg 10-20 [facility] - Hematology and Cell countsOrdered By: Dr. Forde on 08-31-2022 Erythrocyte distribution width (RBC) [Entitic vol] 39.9 fL 35.1-43.9 [facility] Erythrocyte distribution width (RBC) [Ratio] 13.0 % 11.6-14.6 [facility] Immature granulocytes/100 WBC (Bld) 0.300 % 0.0-0.9 [facility] Comment on above: IG% - Immature Granu locytes (promyelocytes, myelocytes and metamyelocytes) > 1% indicates that a LEFT SHIFT is Present. MCH (RBC) [Entitic mass] 28.0 pg 27.0-32.0 [facility] Nucleated RBC/100 WBC (Bld) [Ratio] 0 % 0-5 [facility] MCHC Auto (RBC) [Mass/Vol]Or dered By: Dr. Forde on 08-31-2022 MCHC (RBC) [Mass/Vol] 32.8 g/dL 32-36 [facility] No Panel InformationOrdered By: Dr. Forde on 08-31-2022 Estimated Creatinine Clearance Calc 104.39 ml/min [facility] Estimated GFR (MDRD) Amer 131 mL/min >60 [facility] Comment on above: GFR Calc Estimated GFR (MDRD) Non-Af Amer 109 mL/min >60 [facility] Comment on above: Non- GFR Calc 28.0 pg 27.0-32.0 [facility] 13.0 % 11.6-14.6 [facility] 39.9 fl 35.1-43.9 [facility] 0.300 % 0.0-0.9 [facility] 0 % 0-5 [facility] 109 mL/min >60 [facility] 131 mL/min >60 [facility] 104.39 ml/min [facility] 14.6 RATIO 10-20 [facility] 26.0 mmol/L 21.0-32.0 [facility] Platelets bldOrdered By: Dr. Forde on 08-31-2022 Platelets (Bld) [#/Vol] 227 10*3/uL 150-450 [facility] Serum or plasma calcium xiomara urement (mass/volume)Ordered By: Dr. Forde on 08-31-2022 Calcium [Mass/Vol] 8.8 mg/dL 8.5-10.1 [facility] Serum or plasma creatinine m easurement (mass/volume)Ordered By: Dr. Forde on 08-31-2022 Creatinine [Mass/Vol] 0.62 mg/dL 0.55-1.02 [facility] Comment on above: The validity of the calculated GFR & GFRAA in patients over 70 years has not been determined. Clinical correlation is essential. Serum or plasma urea nitroge n measurement (mass/volume)Ordered By: Dr. Forde on 08-31-2022 Urea nitrogen [Mass/Vol] 9 mg/dL 7-18 [facility] Thin prep Papanicolaou smear with manual screeningOrdered By: Dr. Forde on 08-31-2022 Thin prep Papanicolaou smear with manual screening 3 5-15 [facility] Absolute lymphocyte countOrd ered By: Dr. Rawls on 08-30-2022 Lymphocytes Auto (Unsp spec) [#/Vol] 1.33 10*3/uL 0.83-4.51 [facility] Basophil percentageOrdered B y: Dr. Rawls on 08-30-2022 Basophil percentage 1.1 mmol/L 0.4-2.0 [facility] Lactate [Moles/Vol] 1.1 mmol/L 0.4-2.0 [facility] Basophil percentage 7.1 g/dL 6.4-8.2 [facility] Basophil percentage 0.70 mg/dL 0.20-1.00 [facility] Basophils/100 WBC (Bld) 0.6 % 0-1 [facility] Bilirubin [Mass/Vol] 0.70 mg/dL 0.20-1.00 [facility] Comment on above: For patients on eltr ombopag therapy, use of Dimension Nerinx TBIL is not recommended. Chloride [Moles/Vol] 96 mmol/L 98-107 [facility] Eosinophils/100 WBC (Bld) 0.5 % 0-5 [facility] Glucose [Mass/Vol] 400 mg/dL 74-106 [facility] Comment on above: Glucose result great er than or equal to 200 mg/dLsuggests DIABETES MELLITUS per A.D.A. criteria. Lactate [Moles/Vol] 2.2 mmol/L 0.4-2.0 [facility] Comment on above: Critical Result(s) C alled at: 15:31:02 08/30/2022 by: Eileen Mauricio to [employer]. Results read back by same. Neutrophils (Bld) [#/Vol] 6.7 10*3/uL 2.0-7.7 [facility] Neutrophils/100 WBC (Bld) 77.4 % 47-70 [facility] Potassium [Moles/Vol] 4.0 mmol/L 3.5-5.1 [facility] Protein [Mass/Vol] 7.1 g/dL 6.4-8.2 [facility] Sodium [Moles/Vol] 132 mmol/L 136-145 [facility] WBC (Bld) [#/Vol] 8.6 10*3/uL 4.4-11.0 [facility] Blood erythrocytes count (nu mber/volume)Ordered By: Dr. Rawls on 08-30-2022 RBC (Bld) [#/Vol] 5.43 10*6/uL 4.2-5.4 [facility] Blood hemoglobin measurement (mass/volume)Ordered By: Dr. Rawls on 08-30-2022 Hemoglobin (Bld) [Mass/Vol] 15.0 g/dL 12.0-15.0 [facility] Blood lymphocytes/100 leukoc ytesOrdered By: Dr. Rawls on 08-30-2022 Lymphocytes/100 WBC (Bld) 15.4 % 19-41 [facility] Blood monocytes/100 leukocyt esOrdered By: Dr. Rawls on 08-30-2022 Monocytes/100 WBC (Bld) 5.9 % 0-10 [facility] Blood platelet mean volumeOr dered By: Dr. Rawls on 08-30-2022 Platelet mean volume (Bld) [Entitic vol] 9.1 fL 6.2-12.0 [facility] Determination of erythrocyte mean corpuscular volume (MCV)Ordered By: Dr. Rawls on 08-30-2022 MCV (RBC) [Entitic vol] 83.6 fL 81-99 [facility] Hematocrit Auto (Bld) [Volum e fraction]Ordered By: Dr. Rawls on 08-30-2022 Hematocrit (Bld) [Volume fraction] 45.4 % 37-47 [facility] INR in Blood by Coagulation assayOrdered By: Dr. Rawls on 08-30-2022 INR Coag (Bld) [Relative time] 1.0 {INR} [facility] - Chemistry and C hemistry - challengeOrdered By: Dr. Rawls on 08-30-2022 ALP [Catalytic activity/Vol] 133 U/L 45-117 [facility] ALT [Catalytic activity/Vol] 17 U/L 13-56 [facility] CO2 [Moles/Vol] 31.0 mmol/L 21.0-32.0 [facility] Globulin (S) [Mass/Vol] 4.1 g/dL 2.2-4.2 [facility] Urea nitrogen/Creatinine [Mass ratio] 10.1 mg/mg 10-20 [facility] - CoagulationOrde red By: Dr. Rawls on 08-30-2022 aPTT Coag (Bld) [Time] 26.7 s 24.1-36.2 [facility] PT Coag (PPP) [Time] 12.6 s 11.7-14.9 [facility] Laboratory - Hematology and Cell countsOrdered By: Dr. Rawls on 08-30-2022 Erythrocyte distribution width (RBC) [Entitic vol] 39.0 fL 35.1-43.9 [facility] Erythrocyte distribution width (RBC) [Ratio] 12.9 % 11.6-14.6 [facility] Immature granulocytes/100 WBC (Bld) 0.200 % 0.0-0.9 [facility] Comment on above: IG% - Immature Granu locytes (promyelocytes, myelocytes and metamyelocytes) > 1% indicates that a LEFT SHIFT is Present. MCH (RBC) [Entitic mass] 27.6 pg 27.0-32.0 [facility] Nucleated RBC/100 WBC (Bld) [Ratio] 0 % 0-5 [facility] MCHC Auto (RBC) [Mass/Vol]Or dered By: Dr. Rawls on 08-30-2022 MCHC (RBC) [Mass/Vol] 33.0 g/dL 32-36 [facility] No Panel InformationOrdered By: Dr. Rawls on 08-30-2022 Estimated Creatinine Clearance Calc 65.38 ml/min [facility] Estimated GFR (MDRD) Amer 76 mL/min >60 [facility] Comment on above: GFR Calc Estimated GFR (MDRD) Non-Af Amer 63 mL/min >60 [facility] Comment on above: Non- GFR Calc 12.6 SECONDS 11.7-14.9 [facility] 26.7 Seconds 24.1-36.2 [facility] 4.1 g/dL 2.2-4.2 [facility] 133 U/L 45-117 [facility] 17 U/L 13-56 [facility] Platelets bldOrdered By: Dr. Rawls on 08-30-2022 Platelets (Bld) [#/Vol] 266 10*3/uL 150-450 [facility] Serum or plasma albumin xiomara urement (mass/volume)Ordered By: Dr. Rawls on 08-30-2022 Albumin [Mass/Vol] 3.0 g/dL 3.2-5.0 [facility] Serum or plasma albumin/glob ulin mass ratioOrdered By: Dr. Rawls on 08-30-2022 Albumin/Globulin [Mass ratio] 0.7 {ratio} 0.9-2.4 [facility] Serum or plasma calcium xiomara urement (mass/volume)Ordered By: Dr. Rawls on 08-30-2022 Calcium [Mass/Vol] 9.1 mg/dL 8.5-10.1 [facility] Serum or plasma creatinine m easurement (mass/volume)Ordered By: Dr. Rawls on 08-30-2022 Creatinine [Mass/Vol] 0.99 mg/dL 0.55-1.02 [facility] Comment on above: The validity of the calculated GFR & GFRAA in patients over 70 years has not been determined. Clinical correlation is essential. Serum or plasma urea nitroge n measurement (mass/volume)Ordered By: Dr. Rawls on 08-30-2022 Urea nitrogen [Mass/Vol] 10 mg/dL 7-18 [facility] Thin prep Papanicolaou smear with manual screeningOrdered By: Dr. Rawls on 08-30-2022 Thin prep Papanicolaou smear with manual screening 15 U/L 15-37 [facility] Thin prep Papanicolaou smear with manual screening 5 5-15 [facility] Whole blood hemoglobin A1c/t otal hemoglobin ratio (mass fraction)Ordered By: Dr. Forde on 08-30-2022 HbA1c (Bld) [Mass fraction] 11.5 % 3.8-5.6 [facility] Comment on above: Normal < 5.7 % Predi abetic 5.7 - 6.4 % Diabetic >or= 6.5 % Please note range changes. Absolute lymphocyte countOrd ered By: Dr. Black on 08-14-2022 Lymphocytes Auto (Unsp spec) [#/Vol] 1.35 10*3/uL 0.83-4.51 [facility] Basophil percentageOrdered B y: Dr. Black on 08-14-2022 Basophil percentage 331 mg/dL 74-106 [facility] Basophil percentage 134 mmol/L 136-145 [facility] Basophil percentage 3.7 mmol/L 3.5-5.1 [facility] Basophil percentage 101 mmol/L 98-107 [facility] Basophils (Bld) [#/Vol] 9.7 10*3/uL 4.4-11.0 [facility] Basophils (Bld) [#/Vol] 7.6 10*3/uL 2.0-7.7 [facility] Basophils/100 WBC (Bld) 0.6 % 0-1 [facility] Basophils/100 WBC (Bld) 78.3 % 47-70 [facility] Basophils/100 WBC (Bld) 0.8 % 0-5 [facility] Chloride [Moles/Vol] 101 mmol/L 98-107 [facility] Eosinophils/100 WBC (Bld) 0.8 % 0-5 [facility] Glucose [Mass/Vol] 331 mg/dL 74-106 [facility] Comment on above: Glucose result great er than or equal to 200 mg/dLsuggests DIABETES MELLITUS per A.D.A. criteria. Neutrophils (Bld) [#/Vol] 7.6 10*3/uL 2.0-7.7 [facility] Neutrophils/100 WBC (Bld) 78.3 % 47-70 [facility] Potassium [Moles/Vol] 3.7 mmol/L 3.5-5.1 [facility] Comment on above: Slight Hemolysis, Re sult may be falsely increased. Sodium [Moles/Vol] 134 mmol/L 136-145 [facility] WBC (Bld) [#/Vol] 9.7 10*3/uL 4.4-11.0 [facility] Blood erythrocytes count (nu mber/volume)Ordered By: Dr. Black on 08-14-2022 RBC (Bld) [#/Vol] 5.16 10*6/uL 4.2-5.4 [facility] Blood hemoglobin measurement (mass/volume)Ordered By: Dr. Black on 08-14-2022 Hemoglobin (Bld) [Mass/Vol] 14.6 g/dL 12.0-15.0 [facility] Blood lymphocytes/100 leukoc ytesOrdered By: Dr. Black on 08-14-2022 Lymphocytes/100 WBC (Bld) 13.9 % 19-41 [facility] Blood monocytes/100 leukocyt esOrdered By: Dr. Black on 08-14-2022 Monocytes/100 WBC (Bld) 5.8 % 0-10 [facility] Blood platelet mean volumeOr dered By: Dr. Black on 08-14-2022 Platelet mean volume (Bld) [Entitic vol] 9.8 fL 6.2-12.0 [facility] Comment on above: FIBRIN NOTED Determination of erythrocyte mean corpuscular volume (MCV)Ordered By: Dr. Black on 08-14-2022 MCV (RBC) [Entitic vol] 83.5 fL 81-99 [facility] Hematocrit Auto (Bld) [Volum e fraction]Ordered By: Dr. Black on 08-14-2022 Hematocrit (Bld) [Volume fraction] 43.1 % 37-47 [facility] - Chemistry and C hemistry - challengeOrdered By: Dr. Black on 08-14-2022 CO2 [Moles/Vol] 27.0 mmol/L 21.0-32.0 [facility] Urea nitrogen/Creatinine [Mass ratio] 8.6 mg/mg 10-20 [facility] - Hematology and Cell countsOrdered By: Dr. Black on 08-14-2022 Erythrocyte distribution width (RBC) [Entitic vol] 37.5 fL 35.1-43.9 [facility] Erythrocyte distribution width (RBC) [Ratio] 12.3 % 11.6-14.6 [facility] Immature granulocytes/100 WBC (Bld) 0.600 % 0.0-0.9 [facility] Comment on above: IG% - Immature Granu locytes (promyelocytes, myelocytes and metamyelocytes) > 1% indicates that a LEFT SHIFT is Present. MCH (RBC) [Entitic mass] 28.3 pg 27.0-32.0 [facility] Nucleated RBC/100 W[facility] (Bld) [[facility]] [facility] [Mass/Vol]Or dered By: Dr. Black on 08-14-2022 MCHC (RBC) [Mass/Vol] 33.9 g/dL 32-36 [facility] No Panel InformationOrdered By: Dr. Black on 08-14-2022 Estimated Creatinine Clearance Calc 62.33 ml/min [facility] Estimated GFR (MDRD) Amer 71 mL/min >60 [facility] Comment on above: GFR Calc Estimated GFR (MDRD) Non-Af Amer 59 mL/min >60 [facility] Comment on above: Non- GFR Calc 28.3 pg 27.0-32.0 [facility] 12.3 % 11.6-14.6 [facility] 37.5 fl 35.1-43.9 [facility] 0.600 % 0.0-0.9 [facility] 0.2 % 0-5 [facility] 59 mL/min >60 [facility] 71 mL/min >60 [facility] 62.33 ml/min [facility] 8.6 RATIO 10-20 [facility] 27.0 mmol/L 21.0-32.0 [facility] Platelets bldOrdered By: Dr. Black on 08-14-2022 Platelets (Bld) [#/Vol] 220 10*3/uL 150-450 [facility] Serum or plasma calcium xiomara urement (mass/volume)Ordered By: Dr. Black on 08-14-2022 Calcium [Mass/Vol] 8.9 mg/dL 8.5-10.1 [facility] Serum or plasma creatinine m easurement (mass/volume)Ordered By: Dr. Black on 08-14-2022 Creatinine [Mass/Vol] 1.05 mg/dL 0.55-1.02 [facility] Comment on above: The validity of the calculated GFR & GFRAA in patients over 70 years has not been determined. Clinical correlation is essential. Serum or plasma urea nitroge n measurement (mass/volume)Ordered By: Dr. Black on 08-14-2022 Urea nitrogen [Mass/Vol] 9 mg/dL 7-18 [facility] Thin prep Papanicolaou smear with manual screeningOrdered By: Dr. Black on 08-14-2022 Thin prep Papanicolaou smear with manual screening 6 5-15 [facility] Beta hCG serum qualOrdered B y: Dr. Ng on 08-10-2022 Beta HCG ( test) Ql Negative [facility] Absolute lymphocyte countOrd ered By: Darlyn Galeano on 08-06-2022 Lymphocytes Auto (Unsp spec) [#/Vol] 1.46 10*3/uL 0.83-4.51 [facility] Basophil percentageOrdered B y: Darlyn Galeano on 08-06-2022 Basophil percentage 290 mg/dL 74-106 [facility] Basophil percentage 136 mmol/L 136-145 [facility] Basophil percentage 3.5 mmol/L 3.5-5.1 [facility] Basophil percentage 101 mmol/L 98-107 [facility] Basophils (Bld) [#/Vol] 8.7 10*3/uL 4.4-11.0 [facility] Basophils (Bld) [#/Vol] 6.5 10*3/uL 2.0-7.7 [facility] Basophils/100 WBC (Bld) 0.8 % 0-1 [facility] Basophils/100 WBC (Bld) 74.5 % 47-70 [facility] Basophils/100 WBC (Bld) 0.7 % 0-5 [facility] Chloride [Moles/Vol] 101 mmol/L 98-107 [facility] Eosinophils/100 WBC (Bld) 0.7 % 0-5 [facility] Glucose [Mass/Vol] 290 mg/dL 74-106 [facility] Comment on above: Glucose result great er than or equal to 200 mg/dLsuggests DIABETES MELLITUS per A.D.A. criteria. Neutrophils (Bld) [#/Vol] 6.5 10*3/uL 2.0-7.7 [facility] Neutrophils/100 WBC (Bld) 74.5 % 47-70 [facility] Potassium [Moles/Vol] 3.5 mmol/L 3.5-5.1 [facility] Sodium [Moles/Vol] 136 mmol/L 136-145 [facility] WBC (Bld) [#/Vol] 8.7 10*3/uL 4.4-11.0 [facility] Blood erythrocytes count (nu mber/volume)Ordered By: Darlyn Galeano on 08-06-2022 RBC (Bld) [#/Vol] 5.62 10*6/uL 4.2-5.4 [facility] Blood hemoglobin measurement (mass/volume)Ordered By: Darlyn Galeano on 08-06-2022 Hemoglobin (Bld) [Mass/Vol] 15.7 g/dL 12.0-15.0 [facility] Blood lymphocytes/100 leukoc ytesOrdered By: Darlyn Galeano on 08-06-2022 Lymphocytes/100 WBC (Bld) 16.8 % 19-41 [facility] Blood monocytes/100 leukocyt esOrdered By: Darlyn Galeano on 08-06-2022 Monocytes/100 WBC (Bld) 6.9 % 0-10 [facility] Blood platelet mean volumeOr dered By: Darlyn Galeano on 08-06-2022 Platelet mean volume (Bld) [Entitic vol] 9.4 fL 6.2-12.0 [facility] Determination of erythrocyte mean corpuscular volume (MCV)Ordered By: Darlyn Galeano on 08-06-2022 MCV (RBC) [Entitic vol] 85.6 fL 81-99 [facility] Hematocrit Auto (Bld) [Volum e fraction]Ordered By: Darlyn Galeano on 08-06-2022 Hematocrit (Bld) [Volume fraction] 48.1 % 37-47 [facility] - Chemistry and C hemistry - challengeOrdered By: Darlyn Galeano on 08-06-2022 CO2 [Moles/Vol] 29.0 mmol/L 21.0-32.0 [facility] Urea nitrogen/Creatinine [Mass ratio] 10.4 mg/mg 10-20 [facility] - Hematology and Cell countsOrdered By: Darlyn Galeano on 08-06-2022 Erythrocyte distribution width (RBC) [Entitic vol] 38.5 fL 35.1-43.9 [facility] Erythrocyte distribution width (RBC) [Ratio] 12.2 % 11.6-14.6 [facility] Immature granulocytes/100 WBC (Bld) 0.300 % 0.0-0.9 [facility] Comment on above: IG% - Immature Granu locytes (promyelocytes, myelocytes and metamyelocytes) > 1% indicates that a LEFT SHIFT is Present. MCH (RBC) [Entitic mass] 27.9 pg 27.0-32.0 [facility] Nucleated RBC/100 WBC (Bld) [Ratio] 0 % 0-5 [facility] MCHC Auto (RBC) [Mass/Vol]Or dered By: Darlyn Galeano on 08-06-2022 MCHC (RBC) [Mass/Vol] 32.6 g/dL 32-36 [facility] No Panel InformationOrdered By: Darlyn Galeano on 08-06-2022 Estimated Creatinine Clearance Calc 85.00 ml/min [facility] Estimated GFR (MDRD) Amer 101 mL/min >60 [facility] Comment on above: GFR Calc Estimated GFR (MDRD) Non-Af Amer 84 mL/min >60 [facility] Comment on above: Non- GFR Calc 27.9 pg 27.0-32.0 [facility] 12.2 % 11.6-14.6 [facility] 38.5 fl 35.1-43.9 [facility] 0.300 % 0.0-0.9 [facility] 0 % 0-5 [facility] 84 mL/min >60 [facility] 101 mL/min >60 [facility] 85.00 ml/min [facility] 10.4 RATIO 10-20 [facility] 29.0 mmol/L 21.0-32.0 [facility] Platelets bldOrdered By: Renee Galeano on 08-06-2022 Platelets (Bld) [#/Vol] 269 10*3/uL 150-450 [facility] Serum or plasma calcium xiomara urement (mass/volume)Ordered By: Darlyn Galenao on 08-06-2022 Calcium [Mass/Vol] 9.0 mg/dL 8.5-10.1 [facility] Serum or plasma creatinine m easurement (mass/volume)Ordered By: Darlyn Galeano on 08-06-2022 Creatinine [Mass/Vol] 0.77 mg/dL 0.55-1.02 [facility] Comment on above: The validity of the calculated GFR & GFRAA in patients over 70 years has not been determined. Clinical correlation is essential. Serum or plasma urea nitroge n measurement (mass/volume)Ordered By: Darlyn Galeano on 08-06-2022 Urea nitrogen [Mass/Vol] 8 mg/dL 7-18 [facility] Thin prep Papanicolaou smear with manual screeningOrdered By: Darlyn Galeano on 08-06-2022 Thin prep Papanicolaou smear with manual screening 6 5-15 [facility] Absolute lymphocyte countOrd ered By: Vidal Solorio on 08-03-2022 Lymphocytes Auto (Unsp spec) [#/Vol] 0.99 10*3/uL 0.83-4.51 [facility] Basophil percentageOrdered B y: Vidal Solorio on 08-03-2022 Basophil percentage 0-5 SEEN /hpf 0-5 [facility] Basophil percentage 270 mg/dL 74-106 [facility] Basophil percentage 7.6 g/dL 6.4-8.2 [facility] Basophil percentage 1.10 mg/dL 0.20-1.00 [facility] Basophil percentage 135 mmol/L 136-145 [facility] Basophil percentage 4.5 mmol/L 3.5-5.1 [facility] Basophil percentage 99 mmol/L 98-107 [facility] Basophils (Bld) [#/Vol] 12.4 10*3/uL 4.4-11.0 [facility] Basophils (Bld) [#/Vol] 10.8 10*3/uL 2.0-7.7 [facility] Basophils/100 WBC (Bld) 0.6 % 0-1 [facility] Basophils/100 WBC (Bld) 87.4 % 47-70 [facility] Basophils/100 WBC (Bld) 0.4 % 0-5 [facility] Bilirubin [Mass/Vol] 1.10 mg/dL 0.20-1.00 [facility] Comment on above: For patients on eltr ombopag therapy, use of Dimension Nerinx TBIL is not recommended. Chloride [Moles/Vol] 99 mmol/L 98-107 [facility] Eosinophils/100 WBC (Bld) 0.4 % 0-5 [facility] Glucose [Mass/Vol] 270 mg/dL 74-106 [facility] Comment on above: Glucose result great er than or equal to 200 mg/dLsuggests DIABETES MELLITUS per A.D.A. criteria. Neutrophils (Bld) [#/Vol] 10.8 10*3/uL 2.0-7.7 [facility] Neutrophils/100 WBC (Bld) 87.4 % 47-70 [facility] Potassium [Moles/Vol] 4.5 mmol/L 3.5-5.1 [facility] Protein [Mass/Vol] 7.6 g/dL 6.4-8.2 [facility] Sodium [Moles/Vol] 135 mmol/L 136-145 [facility] WBC (Bld) [#/Vol] 12.4 10*3/uL 4.4-11.0 [facility] Bilirubin Test strip Ql (U)O rdered By: Vidal Solorio on 08-03-2022 Bilirubin Ql (U) Negative Negative [facility] Blood erythrocytes count (nu mber/volume)Ordered By: Vidal Solorio on 08-03-2022 RBC (Bld) [#/Vol] 5.73 10*6/uL 4.2-5.4 [facility] Blood hemoglobin measurement (mass/volume)Ordered By: Vidal Solorio on 08-03-2022 Hemoglobin (Bld) [Mass/Vol] 16.2 g/dL 12.0-15.0 [facility] Blood lymphocytes/100 leukoc ytesOrdered By: Vidal Solorio on 08-03-2022 Lymphocytes/100 WBC (Bld) 8.0 % 19-41 [facility] Blood monocytes/100 leukocyt esOrdered By: Vidal Solorio on 08-03-2022 Monocytes/100 WBC (Bld) 3.2 % 0-10 [facility] Blood platelet mean volumeOr dered By: Vidal Solorio on 08-03-2022 Platelet mean volume (Bld) [Entitic vol] 9.9 fL 6.2-12.0 [facility] Determination of erythrocyte mean corpuscular volume (MCV)Ordered By: Vidal Solorio on 08-03-2022 MCV (RBC) [Entitic vol] 84.5 fL 81-99 [facility] Hematocrit Auto (Bld) [Volum e fraction]Ordered By: Vidal Solorio on 08-03-2022 Hematocrit (Bld) [Volume fraction] 48.4 % 37-47 [facility] Ketones Test strip Ql (U)Ord ered By: Vidal Solorio on 08-03-2022 Ketones Ql (U) 15 mg/dl Negative [facility] - Chemistry and C hemistry - challengeOrdered By: Vidal Solorio on 08-03-2022 ALP [Catalytic activity/Vol] 120 U/L 45-117 [facility] ALT [Catalytic activity/Vol] 15 U/L 13-56 [facility] CO2 [Moles/Vol] 27.0 mmol/L 21.0-32.0 [facility] Globulin (S) [Mass/Vol] 4.5 g/dL 2.2-4.2 [facility] Lipase [Catalytic activity/Vol] 68 U/L 73-393 [facility] Urea nitrogen/Creatinine [Mass ratio] 15.6 mg/mg 10-20 [facility] - Hematology and Cell countsOrdered By: Vidal Solorio on 08-03-2022 Erythrocyte distribution width (RBC) [Entitic vol] 37.5 fL 35.1-43.9 [facility] Erythrocyte distribution width (RBC) [Ratio] 12.3 % 11.6-14.6 [facility] Immature granulocytes/100 WBC (Bld) 0.400 % 0.0-0.9 [facility] Comment on above: IG% - Immature Granu locytes (promyelocytes, myelocytes and metamyelocytes) > 1% indicates that a LEFT SHIFT is Present. MCH (RBC) [Entitic mass] 28.3 pg 27.0-32.0 [facility] Nucleated RBC/100 WBC (Bld) [Ratio] 0 % 0-5 [facility] MCHC Auto (RBC) [Mass/Vol]Or dered By: Vidal Solorio on 08-03-2022 MCHC (RBC) [Mass/Vol] 33.5 g/dL 32-36 [facility] Mucus LM Ql (Urine sed)Order ed By: Vidal Solorio on 08-03-2022 Mucus Ql (Urine sed) 0 SEEN /hpf [facility] Nitrite Test strip Ql (U)Ord ered By: Vidal Solorio on 08-03-2022 Nitrite Ql (U) Negative Negative [facility] No Panel InformationOrdered By: Vidal Solorio on 08-03-2022 Troponin I High Sensitivity 12 pg/mL 3.0-54.0 [facility] Comment on above: Please Note: New Junie t Units and Gender Specific Reference Ranges. For more information see Policy Stat Procedure [employer] High Sensitivity Troponin (TNIH) and attachments. 12 pg/mL 3.0-54.0 [facility] Estimated Creatinine Clearance Calc 102.27 ml/min [facility] Estimated GFR (MDRD) Amer 126 mL/min >60 [facility] Comment on above: GFR Calc Estimated GFR (MDRD) Non-Af Amer 104 mL/min >60 [facility] Comment on above: Non- GFR Calc 28.3 pg 27.0-32.0 [facility] 12.3 % 11.6-14.6 [facility] 37.5 fl 35.1-43.9 [facility] 0.400 % 0.0-0.9 [facility] 0 % 0-5 [facility] 104 mL/min >60 [facility] 126 mL/min >60 [facility] 102.27 ml/min [facility] 15.6 RATIO 10-20 [facility] 4.5 g/dL 2.2-4.2 [facility] 68 U/L 73-393 [facility] 120 U/L 45-117 [facility] 15 U/L 13-56 [facility] 27.0 mmol/L 21.0-32.0 [facility] Platelets bldOrdered By: Roxi Solorio on 08-03-2022 Platelets (Bld) [#/Vol] 233 10*3/uL 150-450 [facility] Protein Test strip Ql (U)Ord ered By: Vidal Solorio on 08-03-2022 Protein Ql (U) 100 mg/dl Negative [facility] Serum or plasma albumin xiomara urement (mass/volume)Ordered By: Vidal Solorio on 08-03-2022 Albumin [Mass/Vol] 3.1 g/dL 3.2-5.0 [facility] Serum or plasma albumin/glob ulin mass ratioOrdered By: Vidal Solorio on 08-03-2022 Albumin/Globulin [Mass ratio] 0.7 {ratio} 0.9-2.4 [facility] Serum or plasma calcium xiomara urement (mass/volume)Ordered By: Vidal Solorio on 08-03-2022 Calcium [Mass/Vol] 9.4 mg/dL 8.5-10.1 [facility] Serum or plasma creatinine m easurement (mass/volume)Ordered By: Vidal Solorio on 08-03-2022 Creatinine [Mass/Vol] 0.64 mg/dL 0.55-1.02 [facility] Comment on above: The validity of the calculated GFR & GFRAA in patients over 70 years has not been determined. Clinical correlation is essential. Serum or plasma urea nitroge n measurement (mass/volume)Ordered By: Vidal Solorio on 08-03-2022 Urea nitrogen [Mass/Vol] 10 mg/dL 7-18 [facility] Squamous epithelial cells de tection in urine sediment by light microscopyOrdered By: Vidal Solorio on 08-03-2022 Epithelial cells.squamous LM Ql (Urine sed) 0-5 SEEN /hpf 5-10 [facility] Thin prep Papanicolaou smear with manual screeningOrdered By: Vidal Solorio on 08-03-2022 Thin prep Papanicolaou smear with manual screening 15 U/L 15-37 [facility] Thin prep Papanicolaou smear with manual screening 9 5-15 [facility] Urine blood detectionOrdered By: Vidal Solorio on 08-03-2022 RBC Ql (U) 50 /ul Negative [facility] RBC Ql (U) 0-5 SEEN /hpf 0-5 [facility] Urine clarityOrdered By: Roxi Solorio on 08-03-2022 Clarity (U) Clear Clear [facility] Urine color determinationOrd ered By: Vidal Solorio on 08-03-2022 Color (U) Yellow Yellow [facility] Urine glucose detectionOrder ed By: Vidal Solorio on 08-03-2022 Glucose Ql (U) 1000 mg/dl Normal [facility] Urine leukocyte esterase det ection by dipstickOrdered By: Vidal Solorio on 08-03-2022 Leukocyte esterase Test strip Ql (U) 100 /ul Negative [facility] Urine pHOrdered By: Vidal wray on 08-03-2022 pH (U) 7.0 [pH] 5.0 - 8.0 [facility] Urine sediment bacteria coun t by microscopy (number/high power field)Ordered By: Vidal Solorio on 08-03-2022 Bacteria LM.HPF (Urine sed) [#/Area] 0 /[HPF] None Seen [facility] Urine specific gravity measu rementOrdered By: Vidal Solorio on 08-03-2022 Specific gravity (U) [Rel density] 1.010 1.002-1.03 0 [facility] Urobilinogen Auto test strip Ql (U)Ordered By: Vidal Solorio on 08-03-2022 Urobilinogen Ql (U) Normal mg/dl Normal [facility] Absolute lymphocyte countOrd ered By: Dr. Mcneal on 07-25-2022 Lymphocytes Auto (Unsp spec) [#/Vol] 1.18 10*3/uL 0.83-4.51 [facility] Basophil percentageOrdered B y: Dr. Mcneal on 07-25-2022 Basophil percentage 415 mg/dL 74-106 [facility] Basophil percentage 6.6 g/dL 6.4-8.2 [facility] Basophil percentage 0.40 mg/dL 0.20-1.00 [facility] Basophil percentage 135 mmol/L 136-145 [facility] Basophil percentage 4.1 mmol/L 3.5-5.1 [facility] Basophil percentage 101 mmol/L 98-107 [facility] Bilirubin [Mass/Vol] 0.40 mg/dL 0.20-1.00 [facility] Comment on above: For patients on eltr ombopag therapy, use of Dimension Nerinx TBIL is not recommended. Chloride [Moles/Vol] 101 mmol/L 98-[address] [facility] Glucose [Mass/Vol] 415 mg/dL 74-106 [facility] Comment on above: Glucose result great er than or equal to 200 mg/dLsuggests DIABETES MELLITUS per A.D.A. criteria. Potassium [Moles/Vol] 4.1 mmol/L 3.5-5.1 [facility] Comment on above: Slight Hemolysis, Re sult may be falsely increased. Protein [Mass/Vol] 6.6 g/dL 6.4-8.2 [facility] Sodium [Moles/Vol] 135 mmol/L 136-145 [facility] Basophils (Bld) [#/Vol] 8.6 10*3/uL 4.4-11.0 [facility] Basophils (Bld) [#/Vol] 6.8 10*3/uL 2.0-7.7 [facility] Basophils/100 WBC (Bld) 0.7 % 0-1 [facility] Basophils/100 WBC (Bld) 78.2 % 47-70 [facility] Basophils/100 WBC (Bld) 1.6 % 0-5 [facility] Eosinophils/100 WBC (Bld) 1.6 % 0-5 [facility] Neutrophils (Bld) [#/Vol] 6.8 10*3/uL 2.0-7.7 [facility] Neutrophils/100 WBC (Bld) 78.2 % 47-70 [facility] WBC (Bld) [#/Vol] 8.6 10*3/uL 4.4-11.0 [facility] Blood erythrocytes count (nu mber/volume)Ordered By: Dr. Mcneal on 07-25-2022 RBC (Bld) [#/Vol] 5.96 10*6/uL 4.2-5.4 [facility] Blood hemoglobin measurement (mass/volume)Ordered By: Dr. Mcneal on 07-25-2022 Hemoglobin (Bld) [Mass/Vol] 16.9 g/dL 12.0-15.0 [facility] Blood lymphocytes/100 leukoc ytesOrdered By: Dr. Mcneal on 07-25-2022 Lymphocytes/100 WBC (Bld) 13.7 % 19-41 [facility] Blood monocytes/100 leukocyt esOrdered By: Dr. Mcneal on 07-25-2022 Monocytes/100 WBC (Bld) 5.2 % 0-10 [facility] Blood platelet mean volumeOr dered By: Dr. Mcneal on 07-25-2022 Platelet mean volume (Bld) [Entitic vol] 10.2 fL 6.2-12.0 [facility] Determination of erythrocyte mean corpuscular volume (MCV)Ordered By: Dr. Mcneal on 07-25-2022 MCV (RBC) [Entitic vol] 84.6 fL 81-99 [facility] Hematocrit Auto (Bld) [Volum e fraction]Ordered By: Dr. Mcneal on 07-25-2022 Hematocrit (Bld) [Volume fraction] 50.4 % 37-47 [facility] - Chemistry and C hemistry - challengeOrdered By: Dr. Mcneal on 07-25-2022 ALP [Catalytic activity/Vol] 113 U/L 45-117 [facility] ALT [Catalytic activity/Vol] 15 U/L 13-56 [facility] CO2 [Moles/Vol] 27.0 mmol/L 21.0-32.0 [facility] Globulin (S) [Mass/Vol] 4.0 g/dL 2.2-4.2 [facility] Lipase [Catalytic activity/Vol] 104 U/L 73-393 [facility] Urea nitrogen/Creatinine [Mass ratio] 14.9 mg/mg 10-20 [facility] - Hematology and Cell countsOrdered By: Dr. Mcneal on 07-25-2022 Erythrocyte distribution width (RBC) [Entitic vol] 38.3 fL 35.1-43.9 [facility] Erythrocyte distribution width (RBC) [Ratio] 12.4 % 11.6-14.6 [facility] Immature granulocytes/100 WBC (Bld) 0.600 % 0.0-0.9 [facility] Comment on above: IG% - Immature Granu locytes (promyelocytes, myelocytes and metamyelocytes) > 1% indicates that a LEFT SHIFT is Present. MCH (RBC) [Entitic mass] 28.4 pg 27.0-32.0 [facility] Nucleated RBC/100 WBC (Bld) [Ratio] 0 % 0-5 [facility] MCHC Auto (RBC) [Mass/Vol]Or dered By: Dr. Mcneal on 07-25-2022 MCHC (RBC) [Mass/Vol] 33.5 g/dL 32-36 [facility] No Panel InformationOrdered By: Dr. Mcneal on 07-25-2022 Estimated Creatinine Clearance Calc 81.81 ml/min [facility] Estimated GFR (MDRD) Amer 97 mL/min >60 [facility] Comment on above: GFR Calc Estimated GFR (MDRD) Non-Af Amer 80 mL/min >60 [facility] Comment on above: Non- GFR Calc Troponin I High Sensitivity 10 pg/mL 3.0-54.0 [facility] Comment on above: Please Note: New Junie t Units and Gender Specific Reference Ranges. For more information see Policy Stat Procedure [facility] High Sensitivity Troponin (TNIH) and attachments. 80 mL/min >60 [facility] 97 mL/min >60 [facility] 81.81 ml/min [facility] 14.9 RATIO 10-20 [facility] 4.0 g/dL 2.2-4.2 [facility] 104 U/L 73-393 [facility] 10 pg/mL 3.0-54.0 [facility] 113 U/L 45-117 [facility] 15 U/L 13-56 [facility] 27.0 mmol/L 21.0-32.0 [facility] 28.4 pg 27.0-32.0 [facility] 12.4 % 11.6-14.6 [facility] 38.3 fl 35.1-43.9 [facility] 0.600 % 0.0-0.9 [facility] 0 % 0-5 [facility] Platelets bldOrdered By: Dr. Mcneal on 07-25-2022 Platelets (Bld) [#/Vol] 163 10*3/uL 150-450 [facility] Serum or plasma albumin xiomara urement (mass/volume)Ordered By: Dr. Mcneal on 07-25-2022 Albumin [Mass/Vol] 2.6 g/dL 3.2-5.0 [facility] Serum or plasma albumin/glob ulin mass ratioOrdered By: Dr. Mcneal on 07-25-2022 Albumin/Globulin [Mass ratio] 0.6 {ratio} 0.9-2.4 [facility] Serum or plasma calcium xiomara urement (mass/volume)Ordered By: Dr. Mcneal on 07-25-2022 Calcium [Mass/Vol] 8.6 mg/dL 8.5-10.1 [facility] Serum or plasma creatinine m easurement (mass/volume)Ordered By: Dr. Mcneal on 07-25-2022 Creatinine [Mass/Vol] 0.80 mg/dL 0.55-1.02 [facility] Comment on above: The validity of the calculated GFR & GFRAA in patients over 70 years has not been determined. Clinical correlation is essential. Serum or plasma urea nitroge n measurement (mass/volume)Ordered By: Dr. Mcneal on 07-25-2022 Urea nitrogen [Mass/Vol] 12 mg/dL 7-18 [facility] Thin prep Papanicolaou smear with manual screeningOrdered By: Dr. Mcneal on 07-25-2022 Thin prep Papanicolaou smear with manual screening 17 U/L 15-37 [facility] Comment on above: Slight Hemolysis, Re sult may be falsely increased. Thin prep Papanicolaou smear with manual screening 7 5-15 [facility] Absolute lymphocyte countOrd ered By: ED PROVIDER on 05-19-2022 Lymphocytes Auto (Unsp spec) [#/Vol] 1.58 10*3/uL 0.83-4.51 [facility] Basophil percentageOrdered B y: ED PROVIDER on 05-19-2022 Basophil percentage 402 mg/dL 74-106 [facility] Basophil percentage 131 mmol/L 136-145 [facility] Basophil percentage 4.5 mmol/L 3.5-5.1 [facility] Basophil percentage 97 mmol/L 98-107 [facility] Basophils (Bld) [#/Vol] 11.3 10*3/uL 4.4-11.0 [facility] Basophils (Bld) [#/Vol] 9.1 10*3/uL 2.0-7.7 [facility] Basophils/100 WBC (Bld) 0.7 % 0-1 [facility] Basophils/100 WBC (Bld) 79.9 % 47-70 [facility] Basophils/100 WBC (Bld) 1.0 % 0-5 [facility] Chloride [Moles/Vol] 97 mmol/L 98-107 [facility] Eosinophils/100 WBC (Bld) 1.0 % 0-5 [facility] Glucose [Mass/Vol] 402 mg/dL 74-106 [facility] Comment on above: Glucose result great er than or equal to 200 mg/dLsuggests DIABETES MELLITUS per A.D.A. criteria. Neutrophils (Bld) [#/Vol] 9.1 10*3/uL 2.0-7.7 [facility] Neutrophils/100 WBC (Bld) 79.9 % 47-70 [facility] Potassium [Moles/Vol] 4.5 mmol/L 3.5-5.1 [facility] Comment on above: Moderate Hemolysis, Result may be falsely increased. Sodium [Moles/Vol] 131 mmol/L 136-145 [facility] WBC (Bld) [#/Vol] 11.3 10*3/uL 4.4-11.0 [facility] Beta hCG serum qualOrdered B y: ED PROVIDER on 05-19-2022 Beta HCG ( test) Ql Negative [facility] Blood erythrocytes count (nu mber/volume)Ordered By: ED PROVIDER on 05-19-2022 RBC (Bld) [#/Vol] 5.80 10*6/uL 4.2-5.4 [facility] Blood hemoglobin measurement (mass/volume)Ordered By: ED PROVIDER on 05-19-2022 Hemoglobin (Bld) [Mass/Vol] 16.2 g/dL 12.0-15.0 [facility] Blood lymphocytes/100 leukoc ytesOrdered By: ED PROVIDER on 05-19-2022 Lymphocytes/100 WBC (Bld) 13.9 % 19-41 [facility] Blood monocytes/100 leukocyt esOrdered By: ED PROVIDER on 05-19-2022 Monocytes/100 WBC (Bld) 4.0 % 0-10 [facility] Blood platelet mean volumeOr dered By: ED PROVIDER on 05-19-2022 Platelet mean volume (Bld) [Entitic vol] 9.7 fL 6.2-12.0 [facility] Determination of erythrocyte mean corpuscular volume (MCV)Ordered By: ED PROVIDER on 05-19-2022 MCV (RBC) [Entitic vol] 84.3 fL 81-99 [facility] Hematocrit Auto (Bld) [Volum e fraction]Ordered By: ED PROVIDER on 05-19-2022 Hematocrit (Bld) [Volume fraction] 48.9 % 37-47 [facility] - Chemistry and C hemistry - challengeOrdered By: ED PROVIDER on 05-19-2022 CO2 [Moles/Vol] 28.0 mmol/L 21.0-32.0 [facility] Urea nitrogen/Creatinine [Mass ratio] 10.2 mg/mg 10-20 [facility] - Hematology and Cell countsOrdered By: ED PROVIDER on 05-19-2022 Erythrocyte distribution width (RBC) [Entitic vol] 41.3 fL 35.1-43.9 [facility] Erythrocyte distribution width (RBC) [Ratio] 13.5 % 11.6-14.6 [facility] Immature granulocytes/100 WBC (Bld) 0.500 % 0.0-0.9 [facility] Comment on above: IG% - Immature Granu locytes (promyelocytes, myelocytes and metamyelocytes) > 1% indicates that a LEFT SHIFT is Present. MCH (RBC) [Entitic mass] 27.9 pg 27.0-32.0 [facility] Nucleated RBC/100 WBC (Bld) [Ratio] 0 % 0-5 [facility] MCHC Auto (RBC) [Mass/Vol]Or dered By: ED PROVIDER on 05-19-2022 MCHC (RBC) [Mass/Vol] 33.1 g/dL 32-36 [facility] No Panel InformationOrdered By: ED PROVIDER on 05-19-2022 Estimated Creatinine Clearance Calc 83.91 ml/min [facility] Estimated GFR (MDRD) Amer 100 mL/min >60 [facility] Comment on above: GFR Calc Estimated GFR (MDRD) Non-Af Amer 82 mL/min >60 [facility] Comment on above: Non- GFR Calc 27.9 pg 27.0-32.0 [facility] 13.5 % 11.6-14.6 [facility] 41.3 fl 35.1-43.9 [facility] 0.500 % 0.0-0.9 [facility] 0 % 0-5 [facility] 82 mL/min >60 [facility] 100 mL/min >60 [facility] 83.91 ml/min [facility] 10.2 RATIO 10-20 [facility] 28.0 mmol/L 21.0-32.0 [facility] Platelets bldOrdered By: ED PROVIDER on 05-19-2022 Platelets (Bld) [#/Vol] 260 10*3/uL 150-450 [facility] Serum or plasma calcium xiomara urement (mass/volume)Ordered By: ED PROVIDER on 05-19-2022 Calcium [Mass/Vol] 9.2 mg/dL 8.5-10.1 [facility] Serum or plasma creatinine m easurement (mass/volume)Ordered By: ED PROVIDER on 05-19-2022 Creatinine [Mass/Vol] 0.78 mg/dL 0.55-1.02 [facility] Comment on above: The validity of the calculated GFR & GFRAA in patients over 70 years has not been determined. Clinical correlation is essential. Serum or plasma urea nitroge n measurement (mass/volume)Ordered By: ED PROVIDER on 05-19-2022 Urea nitrogen [Mass/Vol] 8 mg/dL 7-18 [facility] Thin prep Papanicolaou smear with manual screeningOrdered By: ED PROVIDER on 05-19-2022 Thin prep Papanicolaou smear with manual screening 6 5-15 [facility] Absolute lymphocyte countOrd ered By: Conor Martin on 05-09-2022 Lymphocytes Auto (Unsp spec) [#/Vol] 0.43 10*3/uL 0.83-4.51 [facility] Basophil percentageOrdered B y: Conor Martin on 05-09-2022 Basophils/100 WBC (Bld) 0.4 % 0-1 [facility] Bilirubin [Mass/Vol] 1.40 mg/dL 0.20-1.00 [facility] Comment on above: For patients on eltr ombopag therapy, use of Dimension Nerinx TBIL is not recommended. Chloride [Moles/Vol] 100 mmol/L 98-107 [facility] Eosinophils/100 WBC (Bld) 0.8 % 0-5 [facility] Glucose [Mass/Vol] 364 mg/dL 74-106 [facility] Comment on above: Glucose result great er than or equal to 200 mg/dLsuggests DIABETES MELLITUS per A.D.A. criteria. Neutrophils (Bld) [#/Vol] 9.6 10*3/uL 2.0-7.7 [facility] Neutrophils/100 WBC (Bld) 89.6 % 47-70 [facility] Potassium [Moles/Vol] 4.6 mmol/L 3.5-5.1 [facility] Comment on above: Moderate Hemolysis, Result may be falsely increased. Protein [Mass/Vol] 7.7 g/dL 6.4-8.2 [facility] Sodium [Moles/Vol] 133 mmol/L 136-145 [facility] WBC (Bld) [#/Vol] 10.7 10*3/uL 4.4-11.0 [facility] Blood erythrocytes count (nu mber/volume)Ordered By: Conor Martin on 05-09-2022 RBC (Bld) [#/Vol] 5.49 10*6/uL 4.2-5.4 [facility] Blood hemoglobin measurement (mass/volume)Ordered By: Conor Martin on 05-09-2022 Hemoglobin (Bld) [Mass/Vol] 15.5 g/dL 12.0-15.0 [facility] Blood lymphocytes/100 leukoc ytesOrdered By: Conor Martin on 05-09-2022 Lymphocytes/100 WBC (Bld) 4.0 % 19-41 [facility] Blood manual differential co mment interpretation (narrative result)Ordered By: Conor Martin on 05-09-2022 Manual differential comment Main (Bld) [Interp] SCANNED [facility] Comment on above: LYMPHOPENIA NOTED Blood monocytes/100 leukocyt esOrdered By: Conor Martin on 05-09-2022 Monocytes/100 WBC (Bld) 4.8 % 0-10 [facility] Blood platelet mean volumeOr dered By: Conor Martin on 05-09-2022 Platelet mean volume (Bld) [Entitic vol] 9.6 fL 6.2-12.0 [facility] Determination of erythrocyte mean corpuscular volume (MCV)Ordered By: Conor Martin on 05-09-2022 MCV (RBC) [Entitic vol] 84.9 fL 81-99 [facility] Direct bilirubinOrdered By: Conor Martin on 05-09-2022 Bilirubin.direct [Mass/Vol] 0.18 mg/dL 0.00-0.30 [facility] Hematocrit Auto (Bld) [Volum e fraction]Ordered By: Conor Martin on 05-09-2022 Hematocrit (Bld) [Volume fraction] 46.6 % 37-47 [facility] Influenza virus A and B and SARS-CoV-2 (COVID-19) Ag panel - Upper respiratory specimOrdered By: Conor Martin on 05-09-2022 SARS-CoV-2 & FLU Antigen (Rapid) Influenzae A [facility] - Chemistry and C hemistry - challengeOrdered By: Conor Martin on 05-09-2022 ALP [Catalytic activity/Vol] 142 U/L 45-117 [facility] ALT [Catalytic activity/Vol] 17 U/L 13-56 [facility] CO2 [Moles/Vol] 29.0 mmol/L 21.0-32.0 [facility] Globulin (S) [Mass/Vol] 4.5 g/dL 2.2-4.2 [facility] Lipase [Catalytic activity/Vol] 89 U/L 73-393 [facility] Urea nitrogen/Creatinine [Mass ratio] 15.2 mg/mg 10-20 [facility] - Hematology and Cell countsOrdered By: Conor Martin on 05-09-2022 Erythrocyte distribution width (RBC) [Entitic vol] 41.5 fL 35.1-43.9 [facility] Erythrocyte distribution width (RBC) [Ratio] 13.5 % 11.6-14.6 [facility] Immature granulocytes/100 WBC (Bld) 0.400 % 0.0-0.9 [facility] Comment on above: IG% - Immature Granu locytes (promyelocytes, myelocytes and metamyelocytes) > 1% indicates that a LEFT SHIFT is Present. MCH (RBC) [Entitic mass] 28.2 pg 27.0-32.0 [facility] Nucleated RBC/100 WBC (Bld) [Ratio] 0 % 0-5 [facility] MCHC Auto (RBC) [Mass/Vol]Or dered By: Conor Martin on 05-09-2022 MCHC (RBC) [Mass/Vol] 33.3 g/dL 32-36 [facility] No Panel InformationOrdered By: Conor Martin on 05-09-2022 Estimated Creatinine Clearance Calc 90.90 ml/min [facility] Estimated GFR (MDRD) Amer 110 mL/min >60 [facility] Comment on above: GFR Calc Estimated GFR (MDRD) Non-Af Amer 91 mL/min >60 [facility] Comment on above: Non- GFR Calc Platelets bldOrdered By: Jose Martin on 05-09-2022 Platelets (Bld) [#/Vol] 289 10*3/uL 150-450 [facility] Serum or plasma acetone xiomara urement (mass/volume)Ordered By: Conor Martin on 05-09-2022 Acetone [Mass/Vol] Negative NEG [facility] Serum or plasma albumin xiomara urement (mass/volume)Ordered By: Conor Martin on 05-09-2022 Albumin [Mass/Vol] 3.2 g/dL 3.2-5.0 [facility] Serum or plasma calcium xiomara urement (mass/volume)Ordered By: Conor Martin on 05-09-2022 Calcium [Mass/Vol] 9.4 mg/dL 8.5-10.1 [facility] Serum or plasma creatinine m easurement (mass/volume)Ordered By: Conor Martin on 05-09-2022 Creatinine [Mass/Vol] 0.72 mg/dL 0.55-1.02 [facility] Comment on above: The validity of the calculated GFR & GFRAA in patients over 70 years has not been determined. Clinical correlation is essential. Serum or plasma urea nitroge n measurement (mass/volume)Ordered By: Conor Martin on 05-09-2022 Urea nitrogen [Mass/Vol] 11 mg/dL 7-18 [facility] Thin prep Papanicolaou smear with manual screeningOrdered By: Conor Martin on 05-09-2022 Thin prep Papanicolaou smear with manual screening 21 U/L 15-37 [facility] Comment on above: Moderate Hemolysis, Result may be falsely increased. Thin prep Papanicolaou smear with manual screening 4 5-15 [facility] Progress Noteon 05-02-2022 Progress Note CD UPLOADED. IMAGES IN AGFA. Normal [facility] Absolute lymphocyte countOrd ered By: Dr. Mcneal on 04-17-2022 Lymphocytes Auto (Unsp spec) [#/Vol] 1.46 10*3/uL 0.83-4.51 [facility] Basophil percentageOrdered B y: Dr. Mcneal on 04-17-2022 Basophils/100 WBC (Bld) 0.7 % 0-1 [facility] Bilirubin [Mass/Vol] 1.00 mg/dL 0.20-1.00 [facility] Comment on above: For patients on eltr ombopag therapy, use of Dimension Nerinx TBIL is not recommended. Chloride [Moles/Vol] 100 mmol/L 98-107 [facility] Eosinophils/100 WBC (Bld) 1.2 % 0-5 [facility] Glucose [Mass/Vol] 368 mg/dL 74-106 [facility] Comment on above: Glucose result great er than or equal to 200 mg/dLsuggests DIABETES MELLITUS per A.D.A. criteria. Neutrophils (Bld) [#/Vol] 9.0 10*3/uL 2.0-7.7 [facility] Neutrophils/100 WBC (Bld) 79.1 % 47-70 [facility] Potassium [Moles/Vol] 3.5 mmol/L 3.5-5.1 [facility] Protein [Mass/Vol] 6.6 g/dL 6.4-8.2 [facility] Sodium [Moles/Vol] 136 mmol/L 136-145 [facility] WBC (Bld) [#/Vol] 11.4 10*3/uL 4.4-11.0 [facility] Blood erythrocytes count (nu mber/volume)Ordered By: Dr. Mcneal on 04-17-2022 RBC (Bld) [#/Vol] 5.50 10*6/uL 4.2-5.4 [facility] Blood hemoglobin measurement (mass/volume)Ordered By: Dr. Mcneal on 04-17-2022 Hemoglobin (Bld) [Mass/Vol] 15.9 g/dL 12.0-15.0 [facility] Blood lymphocytes/100 leukoc ytesOrdered By: Dr. Mcneal on 04-17-2022 Lymphocytes/100 WBC (Bld) 12.8 % 19-41 [facility] Blood monocytes/100 leukocyt esOrdered By: Dr. Mcneal on 04-17-2022 Monocytes/100 WBC (Bld) 5.9 % 0-10 [facility] Blood platelet mean volumeOr dered By: Dr. Mcneal on 04-17-2022 Platelet mean volume (Bld) [Entitic vol] 9.4 fL 6.2-12.0 [facility] Determination of erythrocyte mean corpuscular volume (MCV)Ordered By: Dr. Mcneal on 04-17-2022 MCV (RBC) [Entitic vol] 83.3 fL 81-99 [facility] Hematocrit Auto (Bld) [Volum e fraction]Ordered By: Dr. Mcneal on 04-17-2022 Hematocrit (Bld) [Volume fraction] 45.8 % 37-47 [facility] - Chemistry and C hemistry - challengeOrdered By: Dr. Mcneal on 04-17-2022 ALP [Catalytic activity/Vol] 132 U/L 45-117 [facility] ALT [Catalytic activity/Vol] 31 U/L 13-56 [facility] CO2 [Moles/Vol] 28.0 mmol/L 21.0-32.0 [facility] Globulin (S) [Mass/Vol] 3.6 g/dL 2.2-4.2 [facility] Urea nitrogen/Creatinine [Mass ratio] 7.8 mg/mg 10-20 [facility] - Hematology and Cell countsOrdered By: Dr. Mcneal on 04-17-2022 Erythrocyte distribution width (RBC) [Entitic vol] 38.7 fL 35.1-43.9 [facility] Erythrocyte distribution width (RBC) [Ratio] 12.8 % 11.6-14.6 [facility] Immature granulocytes/100 WBC (Bld) 0.300 % 0.0-0.9 [facility] Comment on above: IG% - Immature Granu locytes (promyelocytes, myelocytes and metamyelocytes) > 1% indicates that a LEFT SHIFT is Present. MCH (RBC) [Entitic mass] 28.9 pg 27.0-32.0 [facility] Nucleated RBC/100 WBC (Bld) [Ratio] 0 % 0-5 [facility] MCHC Auto (RBC) [Mass/Vol]Or dered By: Dr. Mcneal on 04-17-2022 MCHC (RBC) [Mass/Vol] 34.7 g/dL 32-36 [facility] No Panel InformationOrdered By: Dr. Mcneal on 04-17-2022 Estimated Creatinine Clearance Calc 85.00 ml/min [facility] Estimated GFR (MDRD) Amer 102 mL/min >60 [facility] Comment on above: GFR Calc Estimated GFR (MDRD) Non-Af Amer 84 mL/min >60 [facility] Comment on above: Non- GFR Calc Platelets bldOrdered By: Dr. Mcneal on 04-17-2022 Platelets (Bld) [#/Vol] 234 10*3/uL 150-450 [facility] Serum or plasma albumin xiomara urement (mass/volume)Ordered By: Dr. Mcneal on 04-17-2022 Albumin [Mass/Vol] 3.0 g/dL 3.2-5.0 [facility] Serum or plasma albumin/glob ulin mass ratioOrdered By: Dr. Mcneal on 04-17-2022 Albumin/Globulin [Mass ratio] 0.8 {ratio} 0.9-2.4 [facility] Serum or plasma calcium xiomara urement (mass/volume)Ordered By: Dr. Mcneal on 04-17-2022 Calcium [Mass/Vol] 9.0 mg/dL 8.5-10.1 [facility] Serum or plasma creatinine m easurement (mass/volume)Ordered By: Dr. Mcneal on 04-17-2022 Creatinine [Mass/Vol] 0.77 mg/dL 0.55-1.02 [facility] Comment on above: The validity of the calculated GFR & GFRAA in patients over 70 years has not been determined. Clinical correlation is essential. Serum or plasma urea nitroge n measurement (mass/volume)Ordered By: Dr. Mcneal on 04-17-2022 Urea nitrogen [Mass/Vol] 6 mg/dL 7-18 [facility] Thin prep Papanicolaou smear with manual screeningOrdered By: Dr. Mcneal on 04-17-2022 Thin prep Papanicolaou smear with manual screening 25 U/L 15-37 [facility] Thin prep Papanicolaou smear with manual screening 8 5-15 [facility] Absolute lymphocyte countOrd ered By: Dr. Abrams on 03-27-2022 Lymphocytes Auto (Unsp spec) [#/Vol] 1.61 10*3/uL 0.83-4.51 [facility] Basophil percentageOrdered B y: Dr. Abrams on 03-27-2022 Basophils/100 WBC (Bld) 0.7 % 0-1 [facility] Bilirubin [Mass/Vol] 1.20 mg/dL 0.20-1.00 [facility] Comment on above: For patients on eltr ombopag therapy, use of Dimension Nerinx TBIL is not recommended. Chloride [Moles/Vol] 94 mmol/L 98-107 [facility] Eosinophils/100 WBC (Bld) 1.0 % 0-5 [facility] Glucose [Mass/Vol] 477 mg/dL 74-106 [facility] Comment on above: Critical Result(s) C alled at: 11:26:10 03/27/2022 by: Tc Angeles to Rubén STRATTON (ER). Results read back by same.Glucose result greater than or equal to 200 mg/dLsuggests DIABETES MELLITUS per A.D.A. criteria. Neutrophils (Bld) [#/Vol] 8.9 10*3/uL 2.0-7.7 [facility] Neutrophils/100 WBC (Bld) 80.1 % 47-70 [facility] Potassium [Moles/Vol] 4.5 mmol/L 3.5-5.1 [facility] Protein [Mass/Vol] 7.3 g/dL 6.4-8.2 [facility] Sodium [Moles/Vol] 131 mmol/L 136-145 [facility] WBC (Bld) [#/Vol] 11.2 10*3/uL 4.4-11.0 [facility] Blood erythrocytes count (nu mber/volume)Ordered By: Dr. Abrams on 03-27-2022 RBC (Bld) [#/Vol] 5.95 10*6/uL 4.2-5.4 [facility] Blood hemoglobin measurement (mass/volume)Ordered By: Dr. Abrams on 03-27-2022 Hemoglobin (Bld) [Mass/Vol] 16.6 g/dL 12.0-15.0 [facility] Blood lymphocytes/100 leukoc ytesOrdered By: Dr. Abrams on 03-27-2022 Lymphocytes/100 WBC (Bld) 14.4 % 19-41 [facility] Blood monocytes/100 leukocyt esOrdered By: Dr. Abrams on 03-27-2022 Monocytes/100 WBC (Bld) 3.4 % 0-10 [facility] Blood platelet mean volumeOr dered By: Dr. Abrams on 03-27-2022 Platelet mean volume (Bld) [Entitic vol] 9.6 fL 6.2-12.0 [facility] Determination of erythrocyte mean corpuscular volume (MCV)Ordered By: Dr. Abrams on 03-27-2022 MCV (RBC) [Entitic vol] 82.9 fL 81-99 [facility] Hematocrit Auto (Bld) [Volum e fraction]Ordered By: Dr. Abrams on 03-27-2022 Hematocrit (Bld) [Volume fraction] 49.3 % 37-47 [facility] - Chemistry and C hemistry - challengeOrdered By: Dr. Abrams on 03-27-2022 ALP [Catalytic activity/Vol] 152 U/L 45-117 [facility] ALT [Catalytic activity/Vol] 22 U/L 13-56 [facility] CO2 [Moles/Vol] 31.0 mmol/L 21.0-32.0 [facility] Globulin (S) [Mass/Vol] 4.2 g/dL 2.2-4.2 [facility] Lipase [Catalytic activity/Vol] 113 U/L 73-393 [facility] Urea nitrogen/Creatinine [Mass ratio] 14.1 mg/mg 10-20 [facility] - Hematology and Cell countsOrdered By: Dr. Abrams on 03-27-2022 Erythrocyte distribution width (RBC) [Entitic vol] 38.0 fL 35.1-43.9 [facility] Erythrocyte distribution width (RBC) [Ratio] 12.7 % 11.6-14.6 [facility] Immature granulocytes/100 WBC (Bld) 0.400 % 0.0-0.9 [facility] Comment on above: IG% - Immature Granu locytes (promyelocytes, myelocytes and metamyelocytes) > 1% indicates that a LEFT SHIFT is Present. MCH (RBC) [Entitic mass] 27.9 pg 27.0-32.0 [facility] Nucleated RBC/100 WBC (Bld) [Ratio] 0 % 0-5 [facility] MCHC Auto (RBC) [Mass/Vol]Or dered By: Dr. Abrams on 03-27-2022 MCHC (RBC) [Mass/Vol] 33.7 g/dL 32-36 [facility] No Panel InformationOrdered By: Dr. Abrams on 03-27-2022 Estimated Creatinine Clearance Calc 77.00 ml/min [facility] Estimated GFR (MDRD) Amer 91 mL/min >60 [facility] Comment on above: GFR Calc Estimated GFR (MDRD) Non-Af Amer 75 mL/min >60 [facility] Comment on above: Non- GFR Calc Platelets bldOrdered By: Dr. Abrams on 03-27-2022 Platelets (Bld) [#/Vol] 251 10*3/uL 150-450 [facility] Serum or plasma albumin xiomara urement (mass/volume)Ordered By: Dr. Abrams on 03-27-2022 Albumin [Mass/Vol] 3.1 g/dL 3.2-5.0 [facility] Serum or plasma albumin/glob ulin mass ratioOrdered By: Dr. Abrams on 03-27-2022 Albumin/Globulin [Mass ratio] 0.7 {ratio} 0.9-2.4 [facility] Serum or plasma calcium xiomara urement (mass/volume)Ordered By: Dr. Abrams on 03-27-2022 Calcium [Mass/Vol] 9.5 mg/dL 8.5-10.1 [facility] Serum or plasma creatinine m easurement (mass/volume)Ordered By: Dr. Abrams on 03-27-2022 Creatinine [Mass/Vol] 0.85 mg/dL 0.55-1.02 [facility] Comment on above: The validity of the calculated GFR & GFRAA in patients over 70 years has not been determined. Clinical correlation is essential. Serum or plasma urea nitroge n measurement (mass/volume)Ordered By: Dr. Abrams on 03-27-2022 Urea nitrogen [Mass/Vol] 12 mg/dL 7-18 [facility] Thin prep Papanicolaou smear with manual screeningOrdered By: Dr. Abrams on 03-27-2022 Thin prep Papanicolaou smear with manual screening 17 U/L 15-37 [facility] Thin prep Papanicolaou smear with manual screening 6 5-15 [facility] ABDOMEN AP VIEWon 08-13-2021 ABDOMEN AP VIEW Patient Name: TRENTON JACKSON STUDY: ABDOMEN AP VIEW INDICATION: constipation . COMPARISON: Abdomen radiograph dated 09/22/2019. ACCESSION NUMBER(S): [id number] ORDERING CLINICIAN: ALEX TAPIA FINDINGS: Single AP [...] Electronically signed by: STEW CUENCA MD [facility] ANKLE, COMPLETE, MIN 3 VIEWS on 08-13-2021 ANKLE, COMPLETE, MIN 3 VIEWS Patient Name: TRENTON JACKSON STUDY: Left ankle, 3 views. INDICATION: sudden onset pain . COMPARISON: None ACCESSION NUMBER(S): [id number] ORDERING CLINICIAN: ALEX TAPIA FINDINGS: Bones demonstrate [...] CUENCA MD Normal [facility] BASIC METABOLIC PANELon 08-02 Anion gap [Moles/Vol] 10 mmol/L Normal 10 - 20 [facility] Comment on above: Performed By: #### B MP #### [address] [address] Calcium [Mass/Vol] 8.9 mg/dL Normal 8.6 - 10.3 [facility] Comment on above: Performed By: #### B MP #### [address] [address] Chloride [Moles/Vol] 97 mmol/L Low 98 - 107 [facility] Comment on above: Performed By: #### B MP #### [address] [address] Creatinine [Mass/Vol] 0.61 mg/dL Normal 0.50 - 1.05 [facility] Comment on above: Performed By: #### B MP #### [address] [address] eGFR FEMALE >90 Normal >90 [facility] Comment on above: Result Comment: CALC ULATIONS OF ESTIMATED GFR ARE PERFORMED USING THE 2020 CKD-EPI STUDY REFIT EQUATION WITHOUT THE RACE VARIABLE FOR THE IDMS-TRACEABLE CREATININE METHODS. https://jasn.asnjournals.org/content//ASN.2020 901408 Performed By: #### B MP #### [address] [address] Glucose [Mass/Vol] 395 mg/dL High 74 - 99 [facility] Comment on above: Performed By: #### B MP #### [address] [address] HCO3 (Bld) [Moles/Vol] 28 mmol/L Normal 21 - 32 [facility] Comment on above: Performed By: #### B MP #### [address] [address] Potassium [Moles/Vol] 4.0 mmol/L Normal 3.5 - 5.3 [facility] Comment on above: Performed By: #### B MP #### [address] [address] Sodium [Moles/Vol] 131 mmol/L Low 136 - 145 [facility] Comment on above: Performed By: #### B MP #### [address] [address] Urea nitrogen [Mass/Vol] 10 mg/dL Normal 6 - 23 [facility] Comment on above: Performed By: #### B MP #### [address] [address] BETA-HYDROXYBUTYRATEon 08-13 BETA-HYDROXYBUTYRATE 0.20 mmol/L Normal 0.02 - 0.27 [facility] Comment on above: Result Comment: The beta-hydroxybutyrate test performance characteristics have been validated by [facility] laboratory. This test has not been approved by the FDA; however, such approval is not necessary. Performed By: #### B HB2 #### [address] [address] CBC AND DIFFERENTIALon 08-13 Basophils (Bld) [#/Vol] 0.10 10*3/uL Normal 0.00 - 0.10 [facility] Comment on above: Performed By: #### C BCDF #### [address] [address] Basophils/100 WBC (Bld) 0.8 % Normal 0.0 - 2.0 [facility] Comment on above: Performed By: #### C BCDF #### [address] [address] Eosinophils (Bld) [#/Vol] 0.20 10*3/uL Normal 0.00 - 0.70 [facility] Comment on above: Performed By: #### C BCDF #### [address] [address] Eosinophils/100 WBC (Bld) 2.1 % Normal 0.0 - 6.0 [facility] Comment on above: Performed By: #### C BCDF #### [address] [address] Erythrocyte distribution width (RBC) [Ratio] 13.0 % Normal 11.5 - 14.5 [facility] Comment on above: Performed By: #### C BCDF #### [address] [address] Hematocrit (Bld) [Volume fraction] 43.3 % Normal 36.0 - 46.0 [facility] Comment on above: Performed By: #### C BCDF #### [address] [address] Hemoglobin (Bld) [Mass/Vol] 14.3 g/dL Normal 12.0 - 16.0 [facility] Comment on above: Performed By: #### C BCDF #### [address] [address] Lymphocytes (Bld) [#/Vol] 1.30 10*3/uL Normal 1.20 - 4.80 [facility] Comment on above: Performed By: #### C BCDF #### [address] [address] Lymphocytes/100 WBC (Bld) 12.0 % Normal 13.0 - 44.0 [facility] Comment on above: Performed By: #### C BCDF #### [address] [address] MCHC (RBC) [Mass/Vol] 33.1 g/dL Normal 32.0 - 36.0 [facility] Comment on above: Performed By: #### C BCDF #### [address] [address] MCV (RBC) [Entitic vol] 83 fL Normal 80 - 100 [facility] Comment on above: Performed By: #### C BCDF #### [address] [address] Monocytes (Bld) [#/Vol] 0.60 10*3/uL Normal 0.10 - 1.00 [facility] Comment on above: Performed By: #### C BCDF #### [address] [address] Monocytes/100 WBC (Bld) 5.6 % Normal 2.0 - 10.0 [facility] Comment on above: Performed By: #### C BCDF #### [address] [address] Neutrophils (Bld) [#/Vol] 8.70 10*3/uL High 1.20 - 7.70 [facility] Comment on above: Result Comment: Perc ent differential counts (%) should be interpreted in the context of the absolute cell counts (cells/L). Performed By: #### C BCDF #### [address] [address] Neutrophils/100 WBC (Bld) 79.5 % Normal 40.0 - 80.0 [facility] Comment on above: Performed By: #### C BCDF #### [address] [address] NUCLEATED RBC 0.1 /100 WBC Normal [facility] Comment on above: Performed By: #### C BCDF #### [address] [address] Platelets (Bld) [#/Vol] 276 10*3/uL Normal 150 - 450 [facility] Comment on above: Performed By: #### C BCDF #### [address] [address] RBC 5.22 x10E12/L High 4.00 - 5.20 [facility] Comment on above: Performed By: #### C BCDF #### [address] [address] WBC (Bld) [#/Vol] 10.9 10*3/uL Normal 4.4 - 11.3 [facility] Comment on above: Performed By: #### C BCDF #### [address] [address] LACTATEon 08-13-2021 Lactate [Moles/Vol] 1.2 mmol/L Normal 0.4 - 2.0 [facility] Comment on above: Result Comment: Marisol puncture immediately after or during the administration of Metamizole may lead to falsely low results. Testing should be performed immediately prior to Metamizole dosing. Performed By: #### L ACT #### [address] [address] Provider Note - ED v3on 08-02 Provider Note - ED v3 Provider Note: Chart Review: ED NOTES ED NOTES: HPI: Patient presents ER today complaining of nausea constipation and left ankle and leg pain. She states that the pain has been going on for several weeks. Denies any strain or trauma. 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 Sensation and motor function of extremities grossly intact. Psych: Appropriate mood and affect. I have reviewed and confirmed nurses/medics notes for patient past, social and family history. Portions of this note were dictated by speech recognition. An attempt at proof reading was made to minimize errors. Minor errors in traffic control technician may be present. HISTORY OF PRESENTING ILLNESS [...] not included)... Normal [facility] Triage - EDon 08-13-2021 Triage - ED [...] obeys commands Best Verbal Response: (V5) oriented [place] Score: 15 Allergies: no Mask applied: yes [...] Hoyos (RN) Normal [facility] VENOUS BLOOD GASon 2 BASE EXCESS-BLOOD 7.5 mmol/L High -2.0 - 3.0 [facility] Comment on above: Performed By: #### B LGV1 #### [place] [address] BICARB, CALCULATED 32.7 mmol/L High 22.0 - 26.0 [facility] Comment on above: Performed By: #### B LGV1 #### [place] [address] FIO2 21 % Normal [facility] Comment on above: Performed By: #### B LGV1 #### [place] [address] Oxygen (Bld) [Partial pressure] 20 mm[Hg] Low 35 - 45 [facility] Comment on above: Performed By: #### B LGV1 #### [place] [address] PCO2 47 mmHg Normal 41 - 51 [facility] Comment on above: Performed By: #### B LGV1 #### [place] [address] pH (Bld) 7.45 [pH] High 7.33 - 7.43 [facility] Comment on above: Performed By: #### B LGV1 #### [place] [address] SO2 42 % Low 45 - 75 [facility] Comment on above: Performed By: #### B LGV1 #### [place] [address] CBCon 10-01-2019 Erythrocyte distribution width (RBC) [Ratio] Canceled Normal [facility] Comment on above: Order Comment: TEST CBC WAS CANCELLED, 10/01/2019 02:09 ?Cancel Reason: Patient Discharged. Performed By: #### C OAGS #### [facility] [address] [place] [address] Hematocrit (Bld) [Volume fraction] Canceled Normal [facility] Comment on above: Order Comment: TEST CBC WAS CANCELLED, 10/01/2019 02:09 ?Cancel Reason: Patient Discharged. Performed By: #### C OAGS #### [facility] [address] [place] [address] Hemoglobin (Bld) [Mass/Vol] Canceled Normal [facility] Comment on above: Order Comment: TEST CBC WAS CANCELLED, 10/01/2019 02:09 ?Cancel Reason: Patient Discharged. Performed By: #### C OAGS #### [facility] [address] [place] [address] MCHC (RBC) [Mass/Vol] Canceled Normal [facility] Comment on above: Order Comment: TEST CBC WAS CANCELLED, 10/01/2019 02:09 ?Cancel Reason: Patient Discharged. Performed By: #### C OAGS #### [facility] [address] [place] [address] MCV (RBC) [Entitic vol] Canceled Normal [facility] Comment on above: Order Comment: TEST CBC WAS CANCELLED, 10/01/2019 02:09 ?Cancel Reason: Patient Discharged. Performed By: #### C OAGS #### [facility] [address] [place] [address] Nucleated RBC/100 WBC (Bld) [Ratio] Canceled Normal [facility] Comment on above: Order Comment: TEST CBC WAS CANCELLED, 10/01/2019 02:09 ?Cancel Reason: Patient Discharged. Performed By: #### C OAGS #### [facility] [address] [place] [address] Platelets (Bld) [#/Vol] Canceled Normal [facility] Comment on above: Order Comment: TEST CBC WAS CANCELLED, 10/01/2019 02:09 ?Cancel Reason: Patient Discharged. Performed By: #### C OAGS #### [facility] [address] [place] [address] RBC (Bld) [#/Vol] Canceled Normal [facility] Comment on above: Order Comment: TEST CBC WAS CANCELLED, 10/01/2019 02:09 ?Cancel Reason: Patient Discharged. Performed By: #### C OAGS #### [facility] [address] [place] [address] WBC (Bld) [#/Vol] Canceled Normal [facility] Comment on above: Order Comment: TEST CBC WAS CANCELLED, 10/01/2019 02:09 ?Cancel Reason: Patient Discharged. Performed By: #### C OAGS #### [facility] [address] [place] [address] RENAL FUNCTION PANELon 09-30 Albumin [Mass/Vol] Canceled Normal [facility] Comment on above: Order Comment: TEST RENAL FUNCTION PANEL WAS CANCELLED, 10/01/2019 02:09 ?Cancel Reason:Patient Discharged. Performed By: #### C OAGS #### [place] [address] [place] [address] Anion gap [Moles/Vol] Canceled Normal [facility] Comment on above: Order Comment: TEST RENAL FUNCTION PANEL WAS CANCELLED, 10/01/2019 02:09 ?Cancel Reason:Patient Discharged. Performed By: #### C OAGS #### [facility] [address] [place] [address] Calcium [Mass/Vol] Canceled Normal [facility] Comment on above: Order Comment: TEST RENAL FUNCTION PANEL WAS CANCELLED, 10/01/2019 02:09 ?Cancel Reason:Patient Discharged. Performed By: #### C OAGS #### [facility] [address] [place] [address] Chloride [Moles/Vol] Canceled Normal [facility] Comment on above: Order Comment: TEST RENAL FUNCTION PANEL WAS CANCELLED, 10/01/2019 02:09 ?Cancel Reason:Patient Discharged. Performed By: #### C OAGS #### [facility] [address] [place] [address] Creatinine [Mass/Vol] Canceled Normal [facility] Comment on above: Order Comment: TEST RENAL FUNCTION PANEL WAS CANCELLED, 10/01/2019 02:09 ?Cancel Reason:Patient Discharged. Performed By: #### C OAGS #### [facility] [address] [place] [address] GFR- AM. Canceled Normal [facility] Comment on above: Order Comment: TEST RENAL FUNCTION PANEL WAS CANCELLED, 10/01/2019 02:09 ?Cancel Reason:Patient Discharged. Result Comment: CALC ULATIONS OF ESTIMATED GFR ARE PERFORMED USING THE MDRD STUDY EQUATION FOR THE IDMS-TRACEABLE CREATININE METHODS. CLIN CHEM 2007;53:766-72 Performed By: #### C OAGS #### [facility] [address] [place] [address] GFR-NON AM. Canceled Normal [facility] Comment on above: Order Comment: TEST RENAL FUNCTION PANEL WAS CANCELLED, 10/01/2019 02:09 ?Cancel Reason:Patient Discharged. Performed By: #### C OAGS #### [facility] [address] [place] [address] Glucose [Mass/Vol] Canceled Normal [facility] Comment on above: Order Comment: TEST RENAL FUNCTION PANEL WAS CANCELLED, 10/01/2019 02:09 ?Cancel Reason:Patient Discharged. Performed By: #### C OAGS #### [facility] [address] [place] [address] HCO3 (Bld) [Moles/Vol] Canceled Normal [facility] Comment on above: Order Comment: TEST RENAL FUNCTION PANEL WAS CANCELLED, 10/01/2019 02:09 ?Cancel Reason:Patient Discharged. Performed By: #### C OAGS #### [facility] [address] [place] [address] Phosphate [Mass/Vol] Canceled Normal [facility] Comment on above: Order Comment: [...] Performed By: #### C OAGS #### [facility] [address] [place] [address] Potassium [Moles/Vol] Canceled Normal [facility] Comment on above: Order Comment: TEST RENAL FUNCTION PANEL WAS CANCELLED, 10/01/2019 02:09 ?Cancel Reason:Patient Discharged. Performed By: #### C OAGS #### [facility] [address] [place] [address] Sodium [Moles/Vol] Canceled Normal [facility] Comment on above: Order Comment: TEST RENAL FUNCTION PANEL WAS CANCELLED, 10/01/2019 02:09 ?Cancel Reason:Patient Discharged. Performed By: #### C OAGS #### [facility] [address] [place] [address] Urea nitrogen [Mass/Vol] Canceled Normal [facility] Comment on above: Order Comment: TEST RENAL FUNCTION PANEL WAS CANCELLED, 10/01/2019 02:09 ?Cancel Reason:Patient Discharged. Performed By: #### C OAGS #### [facility] [address] [place] [address] C-REACTIVE PROTEINon 020 CRP [Mass/Vol] 0.99 mg/dL Normal [facility] Comment on above: Result Comment: REF VALUE < 1.00 Performed By: #### C OAGS #### [facility] [address] [place] [address] CRP [Mass/Vol] 1.13 mg/dL Abnormal [facility] Comment on above: Result Comment: REF VALUE < 1.00 Performed By: #### C RP #### [facility] [address] [place] [address] CBC AND DIFFERENTIALon 09-29 % AUTOMATED IMMATURE GRAN 0.6 % Normal 0.0 - 0.9 [facility] Comment on above: Result Comment: Vaishali ture Granulocyte Count (IG) includes promyelocytes, myelocytes and metamyelocytes but does not include bands. Percent differential counts (%) should be interpreted in the context of the absolute cell counts (cells/L). Performed By: #### C BCDF #### [facility] [address] [place] [address] Basophils (Bld) [#/Vol] 0.06 10*3/uL Normal 0.00 - 0.10 [facility] Comment on above: Performed By: #### C BCDF #### [facility] [address] [place] [address] Basophils/100 WBC (Bld) 0.8 % Normal 0.0 - 2.0 [facility] Comment on above: Performed By: #### C BCDF #### [facility] [address] [place] [address] Eosinophils (Bld) [#/Vol] 0.15 10*3/uL Normal 0.00 - 0.70 [facility] Comment on above: Performed By: #### C BCDF #### [facility] [address] [place] [address] Eosinophils/100 WBC (Bld) 1.9 % Normal 0.0 - 6.0 [facility] Comment on above: Performed By: #### C BCDF #### [facility] [address] [place] [address] Erythrocyte distribution width (RBC) [Ratio] 14.3 % Normal 11.5 - 14.5 [facility] Comment on above: Performed By: #### C BCDF #### [facility] [address] [place] [address] Hematocrit (Bld) [Volume fraction] 39.8 % Normal 36.0 - 46.0 [facility] Comment on above: Performed By: #### C BCDF #### [facility] [address] [place] [address] Hemoglobin (Bld) [Mass/Vol] 12.9 g/dL Normal 12.0 - 16.0 [facility] Comment on above: Performed By: #### C BCDF #### [facility] [address] [place] [address] Lymphocytes (Bld) [#/Vol] 2.21 10*3/uL Normal 1.20 - 4.80 [facility] Comment on above: Performed By: #### C BCDF #### [facility] [address] [place] [address] Lymphocytes/100 WBC (Bld) 28.1 % Normal 13.0 - 44.0 [facility] Comment on above: Performed By: #### C BCDF #### [facility] [address] [place] [address] MCHC (RBC) [Mass/Vol] 32.4 g/dL Normal 32.0 - 36.0 [facility] Comment on above: Performed By: #### C BCDF #### [facility] [address] [place] [address] MCV (RBC) [Entitic vol] 85 fL Normal 80 - 100 [facility] Comment on above: Performed By: #### C BCDF #### [facility] [address] [place] [address] Monocytes (Bld) [#/Vol] 0.79 10*3/uL Normal 0.10 - 1.00 [facility] Comment on above: Performed By: #### C BCDF #### [facility] [address] [place] [address] Monocytes/100 WBC (Bld) 10.0 % Normal 2.0 - 10.0 [facility] Comment on above: Performed By: #### C BCDF #### [facility] [address] [place] [address] Neutrophils (Bld) [#/Vol] 4.61 10*3/uL Normal 1.20 - 7.70 [facility] Comment on above: Performed By: #### C BCDF #### [facility] [address] [place] [address] Neutrophils/100 WBC (Bld) 58.6 % Normal 40.0 - 80.0 [facility] Comment on above: Performed By: #### C BCDF #### [facility] [address] [place] [address] Nucleated RBC/100 WBC (Bld) [Ratio] 0.0 /100 WBC Normal 0.0-0.0 [facility] Comment on above: Performed By: #### C BCDF #### [facility] [address] [place] [address] Platelets (Bld) [#/Vol] 239 10*3/uL Normal 150 - 450 [facility] Comment on above: Performed By: #### C BCDF #### [facility] [address] [place] [address] RBC (Bld) [#/Vol] 4.70 x10E12/L Normal 4.00 - 5.20 [facility] Comment on above: Performed By: #### C BCDF #### [facility] [address] [place] [address] WBC (Bld) [#/Vol] 7.9 10*3/uL Normal 4.4 - 11.3 [facility] Comment on above: Performed By: #### C BCDF #### [facility] [address] [place] [address] % AUTOMATED IMMATURE GRAN 0.5 % Normal 0.0 - 0.9 [facility] Comment on above: Result Comment: Vaishali ture Granulocyte Count (IG) includes promyelocytes, myelocytes and metamyelocytes but does not include bands. Percent differential counts (%) should be interpreted in the context of the absolute cell counts (cells/L). Performed By: #### C BCDF #### [facility] [address] [place] [address] Basophils (Bld) [#/Vol] 0.06 10*3/uL Normal 0.00 - 0.10 [facility] Comment on above: Performed By: #### C BCDF #### [facility] [address] [place] [address] Basophils/100 WBC (Bld) 0.6 % Normal 0.0 - 2.0 [facility] Comment on above: Performed By: #### C BCDF #### [facility] [address] [place] [address] Eosinophils (Bld) [#/Vol] 0.11 10*3/uL Normal 0.00 - 0.70 [facility] Comment on above: Performed By: #### C BCDF #### [facility] [address] [place] [address] Eosinophils/100 WBC (Bld) 1.1 % Normal 0.0 - 6.0 [facility] Comment on above: Performed By: #### C BCDF #### [facility] [address] [place] [address] Erythrocyte distribution width (RBC) [Ratio] 14.3 % Normal 11.5 - 14.5 [facility] Comment on above: Performed By: #### C BCDF #### [facility] [address] [place] [address] Hematocrit (Bld) [Volume fraction] 39.7 % Normal 36.0 - 46.0 [facility] Comment on above: Performed By: #### C BCDF #### [facility] [address] [place] [address] Hemoglobin (Bld) [Mass/Vol] 12.9 g/dL Normal 12.0 - 16.0 [facility] Comment on above: Performed By: #### C BCDF #### [facility] [address] [place] [address] Lymphocytes (Bld) [#/Vol] 3.06 10*3/uL Normal 1.20 - 4.80 [facility] Comment on above: Performed By: #### C BCDF #### [facility] [address] [place] [address] Lymphocytes/100 WBC (Bld) 30.5 % Normal 13.0 - 44.0 [facility] Comment on above: Performed By: #### C BCDF #### [facility] [address] [place] [address] MCHC (RBC) [Mass/Vol] 32.5 g/dL Normal 32.0 - 36.0 [facility] Comment on above: Performed By: #### C BCDF #### [facility] [address] [place] [address] MCV (RBC) [Entitic vol] 84 fL Normal 80 - 100 [facility] Comment on above: Performed By: #### C BCDF #### [facility] [address] [place] [address] Monocytes (Bld) [#/Vol] 0.96 10*3/uL Normal 0.10 - 1.00 [facility] Comment on above: Performed By: #### C BCDF #### [facility] [address] [place] [address] Monocytes/100 WBC (Bld) 9.6 % Normal 2.0 - 10.0 [facility] Comment on above: Performed By: #### C BCDF #### [facility] [address] [place] [address] Neutrophils (Bld) [#/Vol] 5.78 10*3/uL Normal 1.20 - 7.70 [facility] Comment on above: Performed By: #### C BCDF #### [facility] [address] [place] [address] Neutrophils/100 WBC (Bld) 57.7 % Normal 40.0 - 80.0 [facility] Comment on above: Performed By: #### C BCDF #### [facility] [address] [place] [address] Nucleated RBC/100 WBC (Bld) [Ratio] 0.0 /100 WBC Normal 0.0-0.0 [facility] Comment on above: Performed By: #### C BCDF #### [facility] [address] [place] [address] Platelets (Bld) [#/Vol] 250 10*3/uL Normal 150 - 450 [facility] Comment on above: Performed By: #### C BCDF #### [facility] [address] [place] [address] RBC (Bld) [#/Vol] 4.71 x10E12/L Normal 4.00 - 5.20 [facility] Comment on above: Performed By: #### C BCDF #### [facility] [address] [place] [address] WBC (Bld) [#/Vol] 10.0 10*3/uL Normal 4.4 - 11.3 [facility] Comment on above: Performed By: #### C BCDF #### [facility] [address] [place] [address] COAGULATION SCREENon 020 aPTT Coag (Bld) [Time] 33 s Normal 28 - 38 [facility] Comment on above: Result Comment: THE APTT IS NO LONGER USED FOR MONITORING UNFRACTIONATED HEPARIN THERAPY. FOR MONITORING HEPARIN THERAPY, USE THE HEPARIN ASSAY. Performed By: #### C OAGS #### [facility] [address] [place] [address] INR Coag (PPP) [Relative time] 1.2 {INR} High 0.9 - 1.1 [facility] Comment on above: Performed By: #### C OAGS #### [facility] [address] [place] [address] PT Coag (PPP) [Time] 13.5 s High 9.7 - 12.7 [facility] Comment on above: Performed By: #### C OAGS #### [facility] [address] [place] [address] aPTT Coag (Bld) [Time] 41 s High 28 - 38 [facility] Comment on above: Result Comment: THE APTT IS NO LONGER USED FOR MONITORING UNFRACTIONATED HEPARIN THERAPY. FOR MONITORING HEPARIN THERAPY, USE THE HEPARIN ASSAY. Performed By: #### C OAGS #### [facility] [address] [place] [address] INR Coag (PPP) [Relative time] 2.0 {INR} High 0.9 - 1.1 [facility] Comment on above: Performed By: #### C OAGS #### [facility] [address] [place] [address] PT Coag (PPP) [Time] 22.4 s High 9.7 - 12.7 [facility] Comment on above: Performed By: #### C OAGS #### [facility] [address] [place] [address] COMPREHENSIVE PANELon 2019 Albumin [Mass/Vol] 3.6 g/dL Normal 3.4 - 5.0 [facility] Comment on above: Performed By: #### C MP #### [facility] [address] [place] [address] ALP [Catalytic activity/Vol] 82 U/L Normal 33 - 110 [facility] Comment on above: Performed By: #### C MP #### [facility] [address] [place] [address] ALT [Catalytic activity/Vol] 15 U/L Normal 7 - 45 [facility] Comment on above: Result Comment: Cecily ents treated with Sulfasalazine may generate falsely decreased results for ALT. Performed By: #### C MP #### [facility] [address] [place] [address] Anion gap [Moles/Vol] 16 mmol/L Normal 10 - 20 [facility] Comment on above: Performed By: #### C MP #### [facility] [address] [place] [address] AST [Catalytic activity/Vol] 13 U/L Normal 9 - 39 [facility] Comment on above: Performed By: #### C MP #### [facility] [address] [place] [address] Bilirubin [Mass/Vol] 0.7 mg/dL Normal 0.0 - 1.2 [facility] Comment on above: Performed By: #### C MP #### [facility] [address] [place] [address] Calcium [Mass/Vol] 9.2 mg/dL Normal 8.6 - 10.6 [facility] Comment on above: Performed By: #### C MP #### [facility] [address] [place] [address] Chloride [Moles/Vol] 94 mmol/L Low 98 - 107 [facility] Comment on above: Performed By: #### C MP #### [facility] [address] [place] [address] Creatinine [Mass/Vol] 1.52 mg/dL High 0.50 - 1.05 [facility] Comment on above: Performed By: #### C MP #### [facility] [address] [place] [address] GFR- AM. 44 mL/min/1.73m2 Abnormal >60 [facility] Comment on above: Result Comment: CALC ULATIONS OF ESTIMATED GFR ARE PERFORMED USING THE MDRD STUDY EQUATION FOR THE IDMS-TRACEABLE CREATININE METHODS. CLIN CHEM 2007;53:766-72 Performed By: #### C MP #### [facility] [address] [place] [address] GFR-NON AM. 36 mL/min/1.73m2 Abnormal >60 [facility] Comment on above: Performed By: #### C MP #### [facility] [address] [place] [address] Glucose [Mass/Vol] 161 mg/dL High 74 - 99 [facility] Comment on above: Performed By: #### C MP #### [facility] [address] [place] [address] HCO3 (Bld) [Moles/Vol] 30 mmol/L Normal 21 - 32 [facility] Comment on above: Performed By: #### C MP #### [facility] [address] [place] [address] Potassium [Moles/Vol] 3.7 mmol/L Normal 3.5 - 5.3 [facility] Comment on above: Performed By: #### C MP #### [place] [address] [place] [address] Protein [Mass/Vol] 6.3 g/dL Low 6.4 - 8.2 [facility] Comment on above: Performed By: #### C MP #### [facility] [address] [place] [address] Sodium [Moles/Vol] 136 mmol/L Normal 136 - 145 [facility] Comment on above: Performed By: #### C MP #### [facility] [address] [place] [address] Urea nitrogen [Mass/Vol] 25 mg/dL High 6 - 23 [facility] Comment on above: Performed By: #### C MP #### [facility] [address] [place] [address] Daily Progress Note-Cardiolo gyon 09-30-2019 Daily Progress [...] above. Objective Data: Objective Information: T PRBPSpO2 [id number]/7995% Date/Time09/29 7: 7: 7: 7: 7:46 Range(35.7C [...] Reference Range: STRAW,YELLOW Appearance, Urine CLEAR Specific [place], Urine 1.014 pH, Urine 5.0 Protein, Urine [...] seg dep or elevation on EKG, normal DC intervals -Pain control: 975mg q8h as needed, [...] - Hx of heart cath in [facility] - report not available #Provoked [...] the note. I personally evaluated the patient [id number] Electronic Signatures: Quang Chris) (Signed 02-Oct-2019 14:00) Authored: Signature/Cosignature/Att estation Co-Signer: Service, Subjective Data, Objective Data, Assessment and Plan, Signature/Cosignature/Att estation Lilly Barfield (Resident)) (Signed 30-Sep-2019 10:38) Authored: Service, Subjective Data, Objective Data, Assessment and Plan, Signature/Cosignature/Att estation Last Updated: 02-Oct-2019 14:00 by Quang Chris) Normal [facility] Discharge [id number] Discharge Profile2 Discharge Orders: Anticipated Discharge Date: Anticipated Discharge [id number] Anticipated Discharge Time11:33 Problem List: Additional Dx: CHF (congestive heart failure): Catalog Name: Heart failure, unspecified Diabetes mellitus: Catalog Name: Type 2 diabetes mellitus without complications Chest pain: Onset Date: 29-Sep-2019, Catalog Name: Chest pain, unspecified Coronary artery disease: Catalog Name: Atherosclerotic heart disease of [place] coronary artery without angina pectoris Ischemic dilated [...] pounds. Diet: Dietlow sodium, diabetic/carbohydrate counted Diabetic/Carbohydrate Zdzhfir31yblc/Carb meal, 45gram/Carb snack (1999-s) Fluid RestrictionTry not [...] on anti-viral therapy. -Followup routinely with your director of knowledge management. You have a weak heart and they [...] Appointment 01: Physician/Dept/ServiceDr. Abigail Mascorro, Cardiology Scheduled Date/[id number] 11:00 [facility] Cardiology Phone [phone] CommentsPlease do not come into the office. The will contact the patent VIA phone. Follow-Up Appointment 02: Physician/Dept/ServiceDr. Lexis Scanlon - Family Medicine Reason for ReferralEstablish with Primary Care Provider Scheduled Date/[id number] 10:00 LocationPLEASE DO NOT COME INTO THE OFFICE, WILL CONTACT PATIENT VIA PHONE, OFFICE WILL CALL TO CONFIRM APPOINTMENT Phone [phone] CommentsPlease arrive 10-15 minutes early, bring photo ID, current list of medications & dosages, insurance cards and any copay that may apply. If unable to keep this appointment, please call to cancel at least 24 hrs prior to appointment. Electronic Signatures: Kam Hassan (PT ACC REP) (Signed 30-Sep-2019 12:50) Authored: Alyx Martines (PT ACC REP) (Signed 30-Sep-2019 11:25) Authored: Brandon Simpson Form - Youth Nutritional Monitor Summary Lilly Barfield (Resident)) (Signed 30-Sep-2019 11:54) Authored: Discharge Orders, Hospital Course (Home Care/Gold Form), Provider FINAL REVIEW of Orders, Appointments Last Updated: 30-Sep-2019 12:50 by Kam Hassan (PT ACC REP) Normal [facility] EMR ADDONon 09-30-2019 ADDON CONFIRMATION REQUEST REC'D Normal [facility] Comment on above: Performed By: #### C OAGS #### [facility] [address] [place] [address] GLUCOSE-POCTon 09-30-2019 Glucose [Mass/Vol] 210 mg/dL High 74 - 99 [facility] Comment on above: Performed By: #### C BCDF #### [facility] [address] [place] [address] Glucose [Mass/Vol] 230 mg/dL High 74 - 99 [facility] Comment on above: Performed By: #### G EMILY #### [facility] [address] [place] [address] LACTATEon 09-30-2019 Lactate [Moles/Vol] 2.0 mmol/L Normal 0.4 - 2.0 [facility] Comment on above: Result Comment: Marisol puncture immediately after or during the administration of Metamizole may lead to falsely low results. Testing should be performed immediately prior to Metamizole dosing. Performed By: #### L ACT #### [facility] [address] [place] [address] SEDIMENTATION RATE, ERYTHROC YTEon 09-30-2019 SEDIMENTATION RATE, ERYTHROCYTE 30 mm/h High 0 - 20 [facility] Comment on above: Performed By: #### E SRWS #### [facility] [address] [place] [address] TH ABDOMEN AP VIEWon 020 TH ABDOMEN AP VIEW Patient Name: TRENTON JACKSON STUDY: ABDOMEN AP VIEW; 09/30/2019 12:30 am INDICATION: Constipation. COMPARISON: None. ACCESSION NUMBER(S): [id number] ORDERING CLINICIAN: FRANCISCA FERRER FINDINGS: Surgical clips [...] as stated. This study was interpreted at [facility], [place], [place]. Electronically signed by: BEV BUCHANAN MD Normal [facility] TROPONIN Ion 09-30-2019 Troponin I.cardiac [Mass/Vol] Canceled Normal [facility] Comment on above: Order Comment: TEST TROPONIN I WAS CANCELLED, 09/30/2019 14:12 DUPLICATE ORDER, SEE [id number]. Result Comment: LESS THAN 0.04 NG/ML: NEGATIVE [...] is performed using different testing methodology at [facility] than at other [facility]. Direct result comparisons should only be made within the same method. . Biotin interference may cause falsely decreased results. Patients taking a Biotin dose of up to 5 mg/day should refrain from taking Biotin for 24 hours before sample collection. Providers may contact their laboratory for further information. Performed By: #### T ROP2 #### [facility] [address] [place] [address] Troponin I.cardiac [Mass/Vol] 0.02 ng/mL Normal 0.00 - 0.03 [facility] Comment on above: Result Comment: [...] is performed using different testing methodology at [facility] than at [facility]. Direct result comparisons should only be made within the same method. . Biotin interference may cause falsely decreased results. Patients taking a Biotin dose of up to 5 mg/day should refrain from taking Biotin for 24 hours before sample collection. Providers may contact their laboratory for further information. Performed By: #### C OAGS #### [facility] [address] [place] [address] URINALYSISon 09-30-2019 Appearance (U) CLEAR Normal CLEAR [facility] Comment on above: Performed By: #### U A #### [facility] [address] [place] [address] Bilirubin (U) [Mass/Vol] Negative Normal NEGATIVE [facility] Comment on above: Performed By: #### U A #### [facility] [address] [place] [address] BLOOD Negative Normal NEGATIVE [facility] Comment on above: Performed By: #### U A #### [facility] [address] [place] [address] Color (U) YELLOW Normal STRAW,YELL OW [facility] Comment on above: Performed By: #### U A #### [facility] [address] [place] [address] Glucose [Mass/Vol] Negative Normal NEGATIVE [facility] Comment on above: Performed By: #### U A #### [facility] [address] [place] [address] Ketones Ql (U) Negative Normal NEGATIVE [facility] Comment on above: Performed By: #### U A #### [facility] [address] [place] [address] Leukocyte esterase Test strip Ql (U) Negative Normal NEGATIVE [facility] Comment on above: Performed By: #### U A #### [facility] [address] [place] [address] Nitrite Ql (U) Negative Normal NEGATIVE [facility] Comment on above: Performed By: #### U A #### [facility] [address] [place] [address] pH (Bld) 5.0 Normal 5.0 - 8.0 [facility] Comment on above: Performed By: #### U A #### [facility] [address] [place] [address] Protein (U) [Mass/Vol] Negative Normal NEGATIVE [facility] Comment on above: Performed By: #### U A #### [facility] [address] [place] [address] Specific gravity (U) [Rel density] 1.014 Normal 1.005 - 1.035 [facility] Comment on above: Performed By: #### U A #### [facility] [address] [place] [address] Urobilinogen Qn (U) <2.0 Normal 0.0 - 1.9 [facility] Comment on above: Performed By: #### U A #### [facility] [address] [place] [address] Admission Risk Screen - Adul ton 09-29-2019 [...] falls risk with risk for associated injury [place] Safety InterventionsWDL *orient to call system *instruct [...] instruction; skill demonstration Cultural Considerationsnone Developmental Considerationsnone Catholic Considerationsnone Learning Assessment (Other Learner): Other learner [...] Spiritual Screen: Are there any cultural, spiritual, advent practices/values/needs that are important for us to knowno CAGE: Is this an injured patient at a Trauma Center ([facility]/[place]/ [place]): no Vaccinations: Vaccination - Influenza Vaccination Screen: [...] 29-Sep-2019 20:36 by Bina Saunders (RN) Normal [facility] Discharge Planning [id number] 0 09-29-2019 Discharge Planning Note2 Discharge Planning: Anticipated Discharge [id number] Discharge Planning 09/29/192138 Discharge Planning Note: Patient admitted from [facility] with complaints of chest pain. Patient lives at home with - Curry Ellis [facility]- [phone]. Patient is independent of ADLS and uses a walker and cane at home. Will reassess patient's home going needs prior to discharge. Gian Saunders RN 09/30/2019 @1130 Patient E Business Consultant Note PCN informed per [facility] that pt. would need ride home at discharge. Per medical team pt. can discharge after 12pm. PCN called and spoke with pt. to verify demos. Demos verified. The pt. stated that she is going to call her aunt to see if she can come and pick the pt. up at [facility]. PCN awaiting call back. [facility] aware. UPDATE @1300: PCN called and spoke with the pt. and at this time she was unable to secure a ride home from her aunt. PCN informed her that PCN would contact [facility] and get pt. a ride to her residence. UPDATE @1315: PCN able to secure a ride for pt per Blvamzd-H-Xwtq for right now to 1415. PCN called [...] be discharged. [facility] aware. Ada Jasmine, Patient E Business Consultant [phone] 09/30/2019 1400 Patient discharged home with no home care needs, IV removed, acknowledged discharge instructions. Patient left via transport to provide a ride. Vivien Ramesh RN Assessment: Discharge Planning Assessment [id number] Discharge Planning Assessment Completed byJazzmine Villanueva RNelectrical repairer Coordinator [phone] Primary Contact Name and NumberHusashley- Curry Jackson- [phone](1) Stated Reason for Admissionchest pain(1) Arrived Fromhospital [...] CommentsDenies need to speak to social services analyst. This information was obtained via telephonic communication [...] Profile - Adult v2 29-Sep-2019 20:36 Normal [facility] GLUCOSE-POCTon 09-29-2019 Glucose [Mass/Vol] 189 mg/dL High 74 - 99 [facility] Comment on above: Performed By: #### G EMILY #### [facility] [address] [place] [address] Patient Profile - Adult v2on 09-29-2019 Patient Profile - Adult v2 Profile: Initial Info: How to be AddressedShelley(1) Spoken Language PreferredEnglish (1) Are you currently using the Personal Electronic Health Record or Envision HealthcareUHCAREno (1) Stated Reason for Admissionchest pain Primary Contact Name and NumberGomezssonia Ellis [employer] [facility] [employer] [facility] [phone] Wants Family/Rep Notified of Admissionno Notify PCPdeferred, unable to answer Informed of Patient [facility] with patient Medications Brought to Hospitalyes General Health: Weight in kg89.2 kilogram(s) Weight in iiw051.6 pound(s) Height in feet5 feet Height in [...] Significant Exposuresecondhand smoke(1) Resource/Environmental Concernsnone Anticipated Transition [facility] Services Anticipated at Transitionnone Significant IndicatorsComplete Information [...] Profile - Adult v2 28-Sep-2019 10:57 Normal [facility] Surgical Pathology Depar tmenton 08-15-2019 [facility] Surgical Pathology Department Name TRENTON JACKSON. Pathologist: EPTR RAYA MD Date of Procedure: 08/15/2019 Date [...] bone underlying the necrotic area appears unremarkable. Supervisor Receiving And Processing sections are submitted in 5 cassettes following decalcification. MY Summary of Cassettes: Specimen Label Site A 1 section of the necrotic area 2 bone margin of great toe 3 bone margin of second toe 4 bone margin of third toe 5 section of necrotic area with adjacent bone my/08/20/2019 Normal [facility] Comment on above: Performed By: #### C [facility] #### [facility] [address] [place] [address] [facility] Surgical Pathology Depar tmenton 06-23-2019 [facility] Surgical Pathology Department Name TRENTON JACKSON. Pathologist: ZOHREH COSTA MD Date of Procedure: 06/23/2019 Date Received: 06/23/2019 Date Reported 06/27/2019 Submitting Physician: QUOC VIRK DPM Location: [facility] Copy To/Referring/Attending: HALIE RIVERA MD Other [...] prior to presentation. She decided to use oazr-ktk-ymqbkzw aspirin and routine foot care to attend [...] measuring 4 x 3 x 2 cm. Supervisor Receiving And Processing sections are submitted in 4 cassettes. SPS Summary of Cassettes: Specimen Label Site A 1 5th toe bone 2 4th toe bone 3-4 soft tissue Normal [facility] Comment on above: Performed By: #### C BCDF #### [facility] [address] [place] [address] CT ABD/PEL W IVCONon 019 CT ABD/PEL W IVCON * * *Final Report* * * DATE OF EXAM: Apr 08 2019 3:29PM [facility] 0530 - CT ABD/PEL W IVCON / [...] of diverticulitis. Chronic findings as detailed above. Washing Machine Installer: PSCB Transcribe Date/Time: Apr 08 2019 3:35P Dictated by : SABINA ODOM MD This examination was interpreted and the report reviewed and electronically signed by: SABINA ODOM MD on Apr 08 2019 3:51PM EST Normal [facility] Comprehensive Panelon 2018 Albumin [Mass/Vol] 3.7 g/dL Normal 3.4-5.0 [facility] Comment on above: Performed By: #### L MACU #### [place] [address] ALP [Catalytic activity/Vol] 131 U/L High 46-116 [facility] Comment on above: Performed By: #### L MACU #### [place] [address] ALT-SGPT Blood 21 U/L Normal 14-63 [facility] Comment on above: Performed By: #### L MACU #### [place] [address] Anion gap [Moles/Vol] 15 mmol/L Normal 8-20 [facility] Comment on above: Performed By: #### L MACU #### [place] [address] AST-SGOT Blood 16 U/L Normal 15-37 [facility] Comment on above: Performed By: #### L MACU #### [place] [address] Bilirubin Ql (U) 0.6 mg/dL Normal 0.2-1.0 [facility] Comment on above: Performed By: #### L MACU #### [place] [address] Calcium [Mass/Vol] 9.4 mg/dL Normal 8.5-10.1 [facility] Comment on above: Performed By: #### L MACU #### [place] [address] CO2 Blood 29 mEq/L Normal 21-32 [facility] Comment on above: Performed By: #### L MACU #### [facility] [address] [place], [place] [address] Creatinine [Mass/Vol] 0.65 mg/dL Normal 0.51-0.95 [facility] Comment on above: Performed By: #### L MACU #### [facility] [address] [place], [place] [address] Glucose [Mass/Vol] 370 mg/dL High 70-99 [facility] Comment on above: Performed By: #### L MACU #### [facility] [address] [place], [place] [address] Protein [Mass/Vol] 8.1 g/dL Normal 6.4-8.2 [facility] Comment on above: Performed By: #### L MACU #### [facility] [address] [place], [place] [address] Urea nitrogen [Mass/Vol] 5 mg/dL Low 7-18 [facility] Comment on above: Performed By: #### L MACU #### [facility] [address] [place], [place] [address] Urea nitrogen/Creatinine [Mass ratio] 8 mg/mg Low 10-20 [facility] Comment on above: Performed By: #### L MACU #### [address] [address] Chloride [Moles/Vol] 98 mmol/L Normal 98-109 [facility] Comment on above: Result Comment: Test ing performed on an [place] i-STAT. Performed By: #### L MACU #### [address] [address] Potassium [Moles/Vol] 4.1 mmol/L Normal 3.5-4.9 [facility] Comment on above: Result Comment: Test ing performed on an [place] i-STAT. Performed By: #### L MACU #### [address] [address] Sodium [Moles/Vol] 138 mmol/L Normal 138-146 [facility] Comment on above: Result Comment: Test ing performed on an [place] i-STAT. Performed By: #### L MACU #### [address], [place] [address] Hemogram/Manual Diffon 04-08 Abs. Baso 0.00 thou/cmm Normal 0.00-0.08 [facility] Comment on above: Performed By: #### L MACU #### [facility] [address] [place] [address] Abs. Eosin 0.39 thou/cmm Normal 0.00-0.41 [facility] Comment on above: Performed By: #### L MACU #### [facility] [address] [place] [address] Abs. Lymph 1.82 thou/cmm Normal 1.50-3.65 [facility] Comment on above: Performed By: #### L MACU #### [facility] [address] [place] [address] Abs. [place] 0.65 thou/cmm Normal 0.20-1.00 [facility] Comment on above: Performed By: #### L MACU #### [place] [address] Abs. Neut (ANC) 10.14 thou/cmm High 3.00-5.67 [facility] Comment on above: Performed By: #### L MACU #### [place] [address] Anisocytosis Ql (Bld) Few Normal [facility] Comment on above: Performed By: #### L MACU #### [place] [address] Basophil 0.0 % Normal [facility] Comment on above: Performed By: #### L MACU #### [place] [address] Eosinophil 3.0 % Normal [facility] Comment on above: Performed By: #### L MACU #### [place] [address] Lymphocyte 14.0 % Normal [facility] Comment on above: Performed By: #### L MACU #### [place] [address] Monocyte 5.0 % Normal [facility] Comment on above: Performed By: #### L MACU #### [facility] [address] [place] [address] Platelets (Bld) [#/Vol] Normal Normal [facility] Comment on above: Performed By: #### L MACU #### [facility] [address] [place] [address] Seg Neutrophil 78.0 % Normal [facility] Comment on above: Performed By: #### L MACU #### [facility] [address] [place] [address] Toxic Granulation Few Normal [facility] Comment on above: Performed By: #### L MACU #### [facility] [address] [place] [address] Diff Type Manual Diff Normal [facility] Comment on above: Performed By: #### L MACU #### [place] [address] Erythrocyte distribution width (RBC) [Ratio] 12.8 % Normal 11.5-15.9 [facility] Comment on above: Performed By: #### L MACU #### [place] [address] Hematocrit (Bld) [Volume fraction] 46.9 % Normal 37.0-47.0 [facility] Comment on above: Performed By: #### L MACU #### [place] [address] Hemoglobin (Bld) [Mass/Vol] 15.9 g/dL Normal 12.0-16.0 [facility] Comment on above: Performed By: #### L MACU #### [place] [address] MCH (RBC) [Entitic mass] 27.8 pg Normal 27.0-31.0 [facility] Comment on above: Performed By: #### L MACU #### [place] [address] MCHC (RBC) [Mass/Vol] 33.9 % Normal 32.0-36.0 [facility] Comment on above: Performed By: #### L MACU #### [facility] [address] [place] [address] MCV (RBC) [Entitic vol] 82.0 fl Normal 81.0-99.0 [facility] Comment on above: Performed By: #### L MACU #### [facility] [address] [place] [address] Platelet mean volume (Bld) [Entitic vol] 9.8 fl Normal 7.1-10.5 [facility] Comment on above: Performed By: #### L MACU #### [facility] [address] [place] [address] Platelets (Bld) [#/Vol] 233 thou/cmm Normal 150-400 [facility] [facility] Comment on above: Performed By: #### L MACU #### [place] [address] RBC (Bld) [#/Vol] 5.72 mil/cmm High 4.20-5.40 [facility] Comment on above: Performed By: #### L MACU #### [place] [address] WBC (Bld) [#/Vol] 13.0 thou/cmm High 4.8-10.5 [facility] Comment on above: Performed By: #### L MACU #### [place] [address] Lactic acidon 04-08-2019 Lactate [Moles/Vol] 1.8 mmol/L Normal 0.4-2.0 [facility] Comment on above: Performed By: #### L MACU #### [place] [address] Lipase Bloodon 04-08-2019 Lipase Blood 68 U/L Low 73-393 [facility] Comment on above: Performed By: #### L MACU #### [place] [address] MDRD eGFRon 04-08-2019 GFR/1.73 sq M predicted among non-blacks MDRD (S/P/Bld) [Vol rate/Area] mL/min/{1.73_m2} Normal >60mL/min/ 1.73m2 [facility] Comment on above: Result Comment: If t he patient is , multiply the result by 1.210. Performed By: #### L MACU #### [facility] [address] [place] [address] Troponin Ion 04-08-2019 Troponin I.cardiac [Mass/Vol] ng/mL Normal <=0.07 [facility] Comment on above: Performed By: #### L MACU #### [place] [address] Urinalysis Routineon 019 Appearance (U) CLEAR Normal [facility] Comment on above: Performed By: #### L MACU #### [place] [address] Bilirubin Urine Negative Normal Negative [facility] Comment on above: Performed By: #### L MACU #### [place] [address] Color (U) YELLOW Normal [facility] Comment on above: Performed By: #### L MACU #### [place] [address] Ep Cells Urine 0-2 Normal 0-5 [facility] Comment on above: Performed By: #### L MACU #### [place] [address] Glucose Ql (U) 2+ Abnormal Negative [facility] Comment on above: Performed By: #### L MACU #### [place] [address] Hemoglobin,Urine TRACE-INTACT Abnormal Negative [facility] Comment on above: Performed By: #### L MACU #### [place] [address] Ketone Urine Negative Normal Negative [facility] Comment on above: Performed By: #### L MACU #### [place] [address] Leukocytes Esterase Negative Normal Negative [facility] Comment on above: Performed By: #### L MACU #### [facility] [address] [place] [address] Nitrites Urine Negative Normal Negative [facility] Comment on above: Performed By: #### L MACU #### [facility] [address] [place] [address] pH (U) 5.5 [pH] Normal 5.0-8.0 [facility] Comment on above: Performed By: #### L MACU #### [place] [address] Protein (U) [Mass/Vol] Negative Normal Negative [facility] Comment on above: Performed By: #### L MACU #### [place] [address] RBC LM.HPF (Urine sed) [#/Area] 0-3 Normal 0-3 [facility] Comment on above: Performed By: #### L MACU #### [place] [address] Specific [place], Ur 1.010 Normal 1.005-1 .03 0 [facility] Comment on above: Performed By: #### L MACU #### [place] [address] Urobilinogen,Ur 0.2 EU/dL Normal 0.2-1.0 [facility] Comment on above: Performed By: #### L MACU #### [place] [address] WBC LM.HPF (Urine sed) [#/Area] 0-2 Normal 0-5 [facility] Comment on above: Performed By: #### L MACU #### [place] [address] Urine HCG, Qual.on 9 Beta HCG ( test) Ql (U) Negative Normal Negative [facility] Comment on above: Performed By: #### L MACU #### [place] [address] CT ABD/PEL W IVCONon 019 CT ABD/PEL W IVCON * * *Final Report* * * DATE OF EXAM: Mar 17 2019 12:16PM [facility] 0530 - CT ABD/PEL W IVCON / [...] acute inflammation. Other chronic findings, as above. 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 Performed By: #### L MACU #### [address] [address] Potassium [Moles/Vol] 4.5 mmol/L Normal 3.5-4.9 [facility] Comment on above: Result Comment: Test ing performed on an [place]acio i-STAT. Performed By: #### L MACU #### [address] [address] Sodium [Moles/Vol] 135 mmol/L Low 138-146 [facility] Comment on above: Result Comment: Test ing performed on an [place]acio i-STAT. Performed By: #### L MACU #### [address] [address] Albumin [Mass/Vol] 3.5 g/dL Normal 3.4-5.0 [facility] Comment on above: Performed By: #### L MACU #### [facility] [address] [place] [address] ALP [Catalytic activity/Vol] 109 U/L Normal 46-116 [facility] Comment on above: Performed By: #### L MACU #### [facility] [address] [place] [address] ALT-SGPT Blood 22 U/L Normal 14-63 [facility] Comment on above: Performed By: #### L MACU #### [facility] [address] [place] [address] AST-SGOT Blood 21 U/L Normal 15-37 [facility] Comment on above: Performed By: #### L MACU #### [facility] [address] [place] [address] Bilirubin Ql (U) 0.7 mg/dL Normal 0.2-1.0 [facility] Comment on above: Performed By: #### L MACU #### [facility] [address] [place] [address] Calcium [Mass/Vol] 9.0 mg/dL Normal 8.5-10.1 [facility] Comment on above: Performed By: #### L MACU #### [facility] [address] [place] [address] CO2 Blood 28 mEq/L Normal 21-32 [facility] Comment on above: Performed By: #### L MACU #### [facility] [address] [place] [address] Creatinine [Mass/Vol] 0.63 mg/dL Normal 0.51-0.95 [facility] Comment on above: Performed By: #### L MACU #### [facility] [address] [place] [address] Glucose [Mass/Vol] 312 mg/dL High 70-99 [facility] Comment on above: Performed By: #### L MACU #### [facility] [address] [place] [address] Protein [Mass/Vol] 7.5 g/dL Normal 6.4-8.2 [facility] Comment on above: Performed By: #### L MACU #### [facility] [address] [place] [address] Urea nitrogen [Mass/Vol] 5 mg/dL Low 7-18 [facility] Comment on above: Performed By: #### L MACU #### [facility] [address] [place] [address] Urea nitrogen/Creatinine [Mass ratio] 8 mg/mg Low 10-20 [facility] Comment on above: Performed By: #### L MACU #### [facility] [address] [place] [address] Hemogram/Diffon 03-17-2019 Abs. Baso 0.11 thou/cmm High 0.00-0.08 [facility] Comment on above: Performed By: #### L MACU #### [facility] [address] [place] [address] Abs. [place] 0.49 thou/cmm Normal 0.20-1.00 [facility] Comment on above: Performed By: #### L MACU #### [facility] [address] [place] [address] Abs. Neut (ANC) 7.08 thou/cmm High 3.00-5.67 [facility] Comment on above: Performed By: #### L MACU #### [facility] [address] [place] [address] Basophils/100 WBC (Bld) 1.1 % Normal [facility] Comment on above: Performed By: #### L MACU #### [place] [address] Eosinophils (Bld) [#/Vol] 0.27 thou/cmm Normal 0.00-0.41 [facility] Comment on above: Performed By: #### L MACU #### [place] [address] Eosinophils/100 WBC (Bld) 2.7 % Normal [facility] Comment on above: Performed By: #### L MACU #### [place] [address] Erythrocyte distribution width (RBC) [Ratio] 12.9 % Normal 11.5-15.9 [facility] Comment on above: Performed By: #### L MACU #### [facility] [address] [place], [place] [address] Hematocrit (Bld) [Volume fraction] 47.5 % High 37.0-47.0 [facility] Comment on above: Performed By: #### L MACU #### [facility] [address] [place], [place] [address] Hemoglobin (Bld) [Mass/Vol] 15.8 g/dL Normal 12.0-16.0 [facility] Comment on above: Performed By: #### L MACU #### [facility] [address] [place], [place] [address] Lymphocytes (Bld) [#/Vol] 2.05 thou/cmm Normal 1.50-3.65 [facility] Comment on above: Performed By: #### L MACU #### [address] [address] Lymphocytes/100 WBC (Bld) 20.5 % Normal [facility] Comment on above: Performed By: #### L MACU #### [facility] [address] [place], [place] [address] MCH (RBC) [Entitic mass] 27.7 pg Normal 27.0-31.0 [facility] Comment on above: Performed By: #### L MACU #### [address] [address] MCHC (RBC) [Mass/Vol] 33.3 % Normal 32.0-36.0 [facility] Comment on above: Performed By: #### L MACU #### [facility] [address] [place], [place] [address] MCV (RBC) [Entitic vol] 83.3 fL Normal 81.0-99.0 [facility] Comment on above: Performed By: #### L MACU #### [address] [address] Monocytes/100 WBC (Bld) 4.9 % Normal [facility] Comment on above: Performed By: #### L MACU #### [facility] [address] [place] [address] Platelet mean volume (Bld) [Entitic vol] 9.9 fL Normal 7.1-10.5 [facility] Comment on above: Performed By: #### L MACU #### [facility] [address] [place], [place] [address] Platelets (Bld) [#/Vol] 240 thou/cmm Normal 150-400 [facility] Comment on above: Performed By: #### L MACU #### [facility] [address] [place] [address] RBC (Bld) [#/Vol] 5.70 mil/cmm High 4.20-5.40 [facility] Comment on above: Performed By: #### L MACU #### [place] [address] Seg Neutrophil 70.8 % Normal [facility] Comment on above: Performed By: #### L MACU #### [facility] [address] [place] [address] WBC (Bld) [#/Vol] 10.0 thou/cmm Normal 4.8-10.5 [facility] Comment on above: Performed By: #### L MACU #### [place] [address] Lipase Bloodon 03-17-2019 Lipase Blood 107 U/L Normal 73-393 [facility] Comment on above: Performed By: #### L MACU #### [facility] [address] [place] [address] MDRD eGFRon 03-17-2019 GFR/1.73 sq M predicted among non-blacks MDRD (S/P/Bld) [Vol rate/Area] mL/min/{1.73_m2} Normal >60mL/min/ 1.73m2 [facility] Comment on above: Result Comment: If t he patient is , multiply the result by 1.210. Performed By: #### L MACU #### [place] [address] Macroscopic Urinalysison Appearance (U) CLEAR Normal [facility] Comment on above: Performed By: #### L MACU #### [facility] [address] [place] [address] Bilirubin Urine Negative Normal Negative [facility] Comment on above: Performed By: #### L MACU #### [facility] [address] [place] [address] Color (U) YELLOW Normal [facility] Comment on above: Performed By: #### L MACU #### [facility] [address] [place] [address] Glucose Ql (U) 2+ Abnormal Negative [facility] Comment on above: Performed By: #### L MACU #### [place] [address] Hemoglobin,Urine Negative Normal Negative [facility] Comment on above: Performed By: #### L MACU #### [place] [address] Ketone Urine Negative Normal Negative [facility] Comment on above: Performed By: #### L MACU #### [place] [address] Leukocytes Esterase Negative Normal Negative [facility] Comment on above: Performed By: #### L MACU #### [place] [address] Nitrites Urine Negative Normal Negative [facility] Comment on above: Performed By: #### L MACU #### [place] [address] pH (U) 6.0 [pH] Normal 5.0-8.0 [facility] Comment on above: Performed By: #### L MACU #### [place] [address] Protein (U) [Mass/Vol] Negative Normal Negative [facility] Comment on above: Performed By: #### L MACU #### [place] [address] Specific [place], Ur 1.020 Normal 1.005-1 .03 0 [facility] Comment on above: Performed By: #### L MACU #### [facility] [address] [place] [address] Urobilinogen,Ur 0.2 EU/dL Normal 0.2-1.0 [facility] Comment on above: Performed By: #### L MACU #### [facility] [address] [place] [address] Troponin Ion 03-17-2019 Troponin I.cardiac [Mass/Vol] ng/mL Normal <=0.07 [facility] Comment on above: Performed By: #### L MACU #### [place] [address] Comprehensive Panelon 2018 Creatinine [Mass/Vol] 0.57 mg/dL Normal 0.51-0.95 [facility] Comment on above: Performed By: #### L MACU #### [place] [address] ALP [Catalytic activity/Vol] 118 U/L High 45-117 [facility] Comment on above: Performed By: #### L MACU #### [place] [address] Bilirubin [Mass/Vol] 0.6 mg/dL Normal 0.2-1.0 [facility] Comment on above: Performed By: #### L MACU #### [place] [address] Protein [Mass/Vol] 7.6 g/dL Normal 6.4-8.2 [facility] Comment on above: Performed By: #### L MACU #### [place] [address] ALT [Catalytic activity/Vol] 21 U/L Normal 12-78 [facility] Comment on above: Performed By: #### L MACU #### [facility] [address] [place] [address] AST [Catalytic activity/Vol] 17 U/L Normal 15-37 [facility] Comment on above: Performed By: #### L MACU #### [place] [address] Urea nitrogen [Mass/Vol] 8 mg/dL Normal 7-18 [facility] Comment on above: Performed By: #### L MACU #### [facility] [address] [place], [place] [address] Glucose [Mass/Vol] 354 mg/dL High 70-99 [facility] Comment on above: Performed By: #### L MACU #### [facility] [address] [place], [place] [address] Albumin [Mass/Vol] 3.5 g/dL Normal 3.4-5.0 [facility] Comment on above: Performed By: #### L MACU #### [facility] [address] [place], [place] [address] Anion gap [Moles/Vol] 8 mmol/L Normal 8-16 [facility] Comment on above: Performed By: #### L MACU #### [address] [address] Calcium [Mass/Vol] 9.1 mg/dL Normal 8.5-10.1 [facility] Comment on above: Performed By: #### L MACU #### [facility] [address] [place], [place] [address] CO2 [Moles/Vol] 29 mmol/L Normal 21-32 [facility] Comment on above: Performed By: #### L MACU #### [facility] [address] [place], [place] [address] Chloride [Moles/Vol] 102 mmol/L Normal 98-107 [facility] Comment on above: Performed By: #### L MACU #### [facility] [address] [place], [place] [address] Potassium [Moles/Vol] 4.8 mmol/L Normal 3.5-5.1 [facility] Comment on above: Performed By: #### L MACU #### [facility] [address] [place], [place] [address] Sodium [Moles/Vol] 134 mmol/L Low 136-145 [facility] Comment on above: Performed By: #### L MACU #### [facility] [address] [place] [address] Hemogramon 03-14-2019 Erythrocyte distribution width (RBC) [Ratio] 12.8 % Normal 11.5-15.9 [facility] Comment on above: Performed By: #### L MACU #### [facility] [address] [place] [address] Hematocrit (Bld) [Volume fraction] 46.8 % Normal 37.0-47.0 [facility] Comment on above: Performed By: #### L MACU #### [place] [address] Hemoglobin (Bld) [Mass/Vol] 15.7 g/dL Normal 12.0-16.0 [facility] Comment on above: Performed By: #### L MACU #### [place] [address] MCH (RBC) [Entitic mass] 27.8 pg Normal 27.0-31.0 [facility] Comment on above: Performed By: #### L MACU #### [place] [address] MCHC (RBC) [Mass/Vol] 33.5 % Normal 32.0-36.0 [facility] Comment on above: Performed By: #### L MACU #### [place] [address] MCV (RBC) [Entitic vol] 83.0 fL Normal 81.0-99.0 [facility] Comment on above: Performed By: #### L MACU #### [place] [address] Platelet mean volume (Bld) [Entitic vol] 9.9 fL Normal 7.1-10.5 [facility] Comment on above: Performed By: #### L MACU #### [place] [address] Platelets (Bld) [#/Vol] 256 thou/cmm Normal 150-400 [facility] Comment on above: Performed By: #### L MACU #### [place] [address] RBC (Bld) [#/Vol] 5.64 mil/cmm High 4.20-5.40 [facility] Comment on above: Performed By: #### L MACU #### [place] [address] WBC (Bld) [#/Vol] 10.6 thou/cmm High 4.8-10.5 [facility] Comment on above: Performed By: #### L MACU #### [place] [address] Lipase Bloodon 03-14-2019 Lipase Blood 104 U/L Normal 73-393 [facility] Comment on above: Performed By: #### L MACU #### [place] [address] MDRD GFRon 03-14-2019 GFR/1.73 sq M predicted among non-blacks MDRD (S/P/Bld) [Vol rate/Area] mL/min/{1.73_m2} Normal >60mL/min/ 1.73m2 [facility] Comment on above: Result Comment: If t he patient is , multiply the result by 1.210. Performed By: #### L MACU #### [place] [address] Macroscopic Urinalysison Appearance (U) CLEAR Normal [facility] Comment on above: Performed By: #### L MACU #### [place] [address] Bilirubin Urine Negative Normal Negative [facility] Comment on above: Performed By: #### L MACU #### [place] [address] Color (U) YELLOW Normal [facility] Comment on above: Performed By: #### L MACU #### [place] [address] Glucose Ql (U) 2+ Abnormal Negative [facility] Comment on above: Performed By: #### L MACU #### [place] [address] Hemoglobin,Urine Negative Normal Negative [facility] Comment on above: Performed By: #### L MACU #### [facility] [address] [place] [address] Ketone Urine Negative Normal Negative [facility] Comment on above: Performed By: #### L MACU #### [place] [address] Leukocytes Esterase Negative Normal Negative [facility] Comment on above: Performed By: #### L MACU #### [facility] [address] [place] [address] Nitrites Urine Negative Normal Negative [facility] Comment on above: Performed By: #### L MACU #### [place] [address] pH (U) 5.5 [pH] Normal 5.0-8.0 [facility] Comment on above: Performed By: #### L MACU #### [place] [address] Protein (U) [Mass/Vol] Negative Normal Negative [facility] Comment on above: Performed By: #### L MACU #### [place] [address] Specific [place], Ur 1.015 Normal 1.005-1 .03 0 [facility] Comment on above: Performed By: #### L MACU #### [place] [address] Urobilinogen,Ur 0.2 EU/dL Normal 0.2-1.0 [facility] Comment on above: Performed By: #### L MACU #### [place] [address] Urine HCG, Qual.on 9 Beta HCG ( test) Ql (U) Negative Normal Negative [facility] Comment on above: Performed By: #### L MACU #### [place] [address] Comprehensive Panelon 2018 Albumin [Mass/Vol] 3.4 g/dL Normal 3.4-5.0 [facility] Comment on above: Performed By: #### L MACU #### [facility] [address] [place], [place] [address] ALP [Catalytic activity/Vol] 109 U/L Normal 46-116 [facility] Comment on above: Performed By: #### L MACU #### [facility] [address] [place] [address] ALT-SGPT Blood 20 U/L Normal 14-63 [facility] Comment on above: Performed By: #### L MACU #### [facility] [address] [place] [address] Anion gap [Moles/Vol] 15 mmol/L Normal 8-20 [facility] Comment on above: Performed By: #### L MACU #### [facility] [address] [place] [address] AST-SGOT Blood 19 U/L Normal 15-37 [facility] Comment on above: Performed By: #### L MACU #### [facility] [address] [place] [address] Bilirubin Ql (U) 0.8 mg/dL Normal 0.2-1.0 [facility] Comment on above: Performed By: #### L MACU #### [facility] [address] [place] [address] Calcium [Mass/Vol] 9.0 mg/dL Normal 8.5-10.1 [facility] Comment on above: Performed By: #### L MACU #### [facility] [address] [place] [address] CO2 Blood 27 mEq/L Normal 21-32 [facility] Comment on above: Performed By: #### L MACU #### [facility] [address] [place] [address] Creatinine [Mass/Vol] 0.62 mg/dL Normal 0.51-0.95 [facility] Comment on above: Performed By: #### L MACU #### [place] [address] Glucose [Mass/Vol] 343 mg/dL High 70-99 [facility] Comment on above: Performed By: #### L MACU #### [facility] [address] [place], [place] [address] Protein [Mass/Vol] 7.5 g/dL Normal 6.4-8.2 [facility] Comment on above: Performed By: #### L MACU #### [facility] [address] [place], [place] [address] Urea nitrogen [Mass/Vol] 3 mg/dL Low 7-25 [facility] Comment on above: Performed By: #### L MACU #### [facility] [address] [place], [place] [address] Urea nitrogen/Creatinine [Mass ratio] 5 mg/mg Low 10-20 [facility] Comment on above: Performed By: #### L MACU #### [facility] [address] [place], [place] [address] Chloride [Moles/Vol] 100 mmol/L Normal 98-109 [facility] Comment on above: Result Comment: Test ing performed on an [place] i-STAT. Performed By: #### L MACU #### [facility] [address] [place], [place] [address] Potassium [Moles/Vol] 3.7 mmol/L Normal 3.5-4.9 [facility] Comment on above: Result Comment: Test ing performed on an [place] i-STAT. Performed By: #### L MACU #### [address] [address] Sodium [Moles/Vol] 138 mmol/L Normal 138-146 [facility] Comment on above: Result Comment: Test ing performed on an [place] i-STAT. Performed By: #### L MACU #### [facility] [address] [place], [place] [address] D-Dimer Quantitativeon 10-27 D-Dimer Quantitative 310 ng/mL(FEU) Normal <450 [facility] Comment on above: Result Comment: 500 ng/mL [...] >=35.8%. Performed By: #### L MACU #### [place] [address] Hemogramon 10-27-2018 Erythrocyte distribution width (RBC) [Ratio] 12.5 % Normal 11.5-15.9 [facility] Comment on above: Performed By: #### L MACU #### [place] [address] Hematocrit (Bld) [Volume fraction] 46.1 % Normal 37.0-47.0 [facility] Comment on above: Performed By: #### L MACU #### [place] [address] Hemoglobin (Bld) [Mass/Vol] 15.8 g/dL Normal 12.0-16.0 [facility] Comment on above: Performed By: #### L MACU #### [place] [address] MCH (RBC) [Entitic mass] 27.8 pg Normal 27.0-31.0 [facility] Comment on above: Performed By: #### L MACU #### [place] [address] MCHC (RBC) [Mass/Vol] 34.3 % Normal 32.0-36.0 [facility] Comment on above: Performed By: #### L MACU #### [place] [address] MCV (RBC) [Entitic vol] 81.0 fL Normal 81.0-99.0 [facility] Comment on above: Performed By: #### L MACU #### [place] [address] Platelet mean volume (Bld) [Entitic vol] 10.0 fL Normal 7.1-10.5 [facility] Comment on above: Performed By: #### L MACU #### [facility] [address] [place], [place] [address] Platelets (Bld) [#/Vol] 223 thou/cmm Normal 150-400 [facility] Comment on above: Performed By: #### L MACU #### [facility] [place], [place] [address] RBC (Bld) [#/Vol] 5.69 mil/cmm High 4.20-5.40 [facility] Comment on above: Performed By: #### L RADHAU #### [address] [address] WBC (Bld) [#/Vol] 10.0 thou/cmm Normal 4.8-10.5 [facility] Comment on above: Performed By: #### L MACU #### [address] [address] MDRD eGFRon 10-27-2018 GFR/1.73 sq M predicted among non-blacks MDRD (S/P/Bld) [Vol rate/Area] mL/min/{1.73_m2} Normal >60mL/min/ 1.73m2 [facility] Comment on above: Result Comment: If t he patient is , multiply the result by 1.210. Performed By: #### L MACU #### [address] [address] N-terminal Pro-BNPon 019 Natriuretic peptide B (Bld) [Mass/Vol] 1340.0 pg/mL Normal [facility] Comment on above: Result Comment: Note new reference range: Normal Reference Range: Patients <75 yrs old <125pg/ml Patients >=75 yrs old <450 pg/ml Performed By: #### L MACU #### [facility] [place], [place] [address] Troponin Ion 10-27-2018 Troponin I.cardiac [Mass/Vol] ng/mL Normal <=0.07 [facility] Comment on above: Performed By: #### L MACU #### [facility] [place], [place] [address] Troponin I.cardiac [Mass/Vol] ng/mL Normal <=0.07 [facility] Comment on above: Performed By: #### L MACU #### [facility] [place], [place] [address] Troponin Ion 10-21-2018 Troponin I.cardiac [Mass/Vol] ng/mL Normal <=0.07 [facility] Comment on above: Performed By: #### L CBCD #### [place] [address] Basic Panelon 10-20-2018 Anion gap [Moles/Vol] 17 mmol/L Normal 8-20 [facility] Comment on above: Performed By: #### L CBCD #### [place] [address] Calcium [Mass/Vol] 9.7 mg/dL Normal 8.5-10.1 [facility] Comment on above: Performed By: #### L CBCD #### [place] [address] CO2 Blood 26 mEq/L Normal 21-32 [facility] Comment on above: Performed By: #### L CBCD #### [place] [address] Creatinine [Mass/Vol] 0.77 mg/dL Normal 0.51-0.95 [facility] Comment on above: Performed By: #### L CBCD #### [place] [address] Glucose [Mass/Vol] 328 mg/dL High 70-99 [facility] Comment on above: Performed By: #### L CBCD #### [place] [address] Urea nitrogen [Mass/Vol] 6 mg/dL Low 7-25 [facility] Comment on above: Performed By: #### L CBCD #### [place] [address] Urea nitrogen/Creatinine [Mass ratio] 8 mg/mg Low 10-20 [facility] Comment on above: Performed By: #### L CBCD #### [facility] [place], [place] [address] Chloride [Moles/Vol] 100 mmol/L Normal 98-109 [facility] Comment on above: Result Comment: Test ing performed on an Palacio i-STAT. Performed By: #### L CBCD #### [facility] [address] [place], [place] [address] Potassium [Moles/Vol] 3.9 mmol/L Normal 3.5-4.9 [facility] Comment on above: Result Comment: Test ing performed on an Palacio i-STAT. Performed By: #### L CBCD #### [address] [address] Sodium [Moles/Vol] 139 mmol/L Normal 138-146 [facility] Comment on above: Result Comment: Test ing performed on an Palacio i-STAT. Performed By: #### L CBCD #### [address] [address] D-Dimer Quantitativeon 10-20 D-Dimer Quantitative 310 ng/mL(FEU) Normal <450 [facility] Comment on above: Result Comment: 500 ng/mL [...] >=35.8%. Performed By: #### L CBCD #### [address] [address] Glucose Meteron 10-20-2018 Glucose [Mass/Vol] 284 mg/dL High 70-99 [facility] Comment on above: Result Comment: MD Flores OTIFIED [place] [address] Performed By: #### L CBCD #### [facility] [address] [place] [address] Hemogram/Manual Diffon 10-20 Abs. Baso 0.00 thou/cmm Normal 0.00-0.08 [facility] Comment on above: Performed By: #### L CBCD #### [facility] [address] [place] [address] Abs. Eosin 0.00 thou/cmm Normal 0.00-0.41 [facility] Comment on above: Performed By: #### L CBCD #### [place] [address] Abs. Lymph 3.17 thou/cmm Normal 1.50-3.65 [facility] Comment on above: Performed By: #### L CBCD #### [facility] [address] [place] [address] Abs. Carroll 0.98 thou/cmm Normal 0.20-1.00 [facility] Comment on above: Performed By: #### L CBCD #### [place] [address] Abs. Neut (ANC) 8.05 thou/cmm High 3.00-5.67 [facility] Comment on above: Performed By: #### L CBCD #### [facility] [address] [place] [address] Atypical Lymph 4.0 % Normal [facility] Comment on above: Performed By: #### L CBCD #### [facility] [address] [place] [address] Basophil 0.0 % Normal [facility] Comment on above: Performed By: #### L CBCD #### [place] [address] Eosinophil 0.0 % Normal [facility] Comment on above: Performed By: #### L CBCD #### [address] [place], [place] [address] Lymphocyte 22.0 % Normal [facility] Comment on above: Performed By: #### L CBCD #### [facility] [address] [place] [address] Monocyte 8.0 % Normal [facility] Comment on above: Performed By: #### L CBCD #### [facility] [address] [place] [address] Platelets (Bld) [#/Vol] Normal Normal [facility] Comment on above: Performed By: #### L CBCD #### [facility] [address] [place] [address] RBC morphology finding Nom (Bld) Normal Normal [facility] Comment on above: Performed By: #### L CBCD #### [facility] [address] [place] [address] Seg Neutrophil 66.0 % Normal [facility] Comment on above: Performed By: #### L CBCD #### [facility] [address] [place] [address] Diff Type Manual Diff Normal [facility] Comment on above: Performed By: #### L CBCD #### [facility] [address] [place] [address] Erythrocyte distribution width (RBC) [Ratio] 12.9 % Normal 11.5-15.9 [facility] Comment on above: Performed By: #### L CBCD #### [facility] [address] [place] [address] Hematocrit (Bld) [Volume fraction] 47.6 % High 37.0-47.0 [facility] Comment on above: Performed By: #### L CBCD #### [facility] [address] [place] [address] Hemoglobin (Bld) [Mass/Vol] 16.1 g/dL High 12.0-16.0 [facility] Comment on above: Performed By: #### L CBCD #### [place] [address] MCH (RBC) [Entitic mass] 27.8 pg Normal 27.0-31.0 [facility] Comment on above: Performed By: #### L CBCD #### [facility] [address] [place], [place] [address] MCHC (RBC) [Mass/Vol] 33.8 % Normal 32.0-36.0 [facility] Comment on above: Performed By: #### L CBCD #### [facility] [address] [place], [place] [address] MCV (RBC) [Entitic vol] 82.2 fl Normal 81.0-99.0 [facility] Comment on above: Performed By: #### L CBCD #### [facility] [address] [place], [place] [address] Platelet mean volume (Bld) [Entitic vol] 9.9 fl Normal 7.1-10.5 [facility] Comment on above: Performed By: #### L CBCD #### [facility] [address] [place] [id number] Platelets (Bld) [#/Vol] 250 thou/cmm Normal 150-400 [facility] Comment on above: Performed By: #### L CBCD #### [facility] [address] [place], [place] [address] RBC (Bld) [#/Vol] 5.79 mil/cmm High 4.20-5.40 [facility] Comment on above: Performed By: #### L CBCD #### [facility] [address] [place], [place] [address] WBC (Bld) [#/Vol] 12.2 thou/cmm High 4.8-10.5 [facility] Comment on above: Performed By: #### L CBCD #### [facility] [address] [place], [place] [address] MDRD eGFRon 10-20-2018 GFR/1.73 sq M predicted among non-blacks MDRD (S/P/Bld) [Vol rate/Area] mL/min/{1.73_m2} Normal >60mL/min/ 1.73m2 [facility] Comment on above: Result Comment: If t he patient is , multiply the result by 1.210. Performed By: #### L CBCD #### [facility] [address] [place] [address] N-terminal Pro-BNPon 019 Natriuretic peptide B (Bld) [Mass/Vol] 751.0 pg/mL Normal [facility] Comment on above: Result Comment: Note new reference range: Normal Reference Range: Patients <75 yrs old <125pg/ml Patients >=75 yrs old <450 pg/ml Performed By: #### L CBCD #### [facility] [address] [place] [address] Troponin Ion 10-20-2018 Troponin I.cardiac [Mass/Vol] ng/mL Normal <=0.07 [facility] Comment on above: Performed By: #### L CBCD #### [place] [address] Comprehensive Panelon 2018 Albumin [Mass/Vol] 3.1 g/dL Low 3.4-5.0 [facility] Comment on above: Performed By: #### L P14 ####[place] [address] ALP [Catalytic activity/Vol] 93 U/L Normal 46-116 [facility] Comment on above: Performed By: #### L P14 ####[place] [address] ALT-SGPT Blood 22 U/L Normal 14-63 [facility] Comment on above: Performed By: #### L P14 ####[place] [address] Anion gap [Moles/Vol] 13 mmol/L Normal 8-20 [facility] Comment on above: Performed By: #### L P14 ####[place] [address] AST-SGOT Blood 20 U/L Normal 15-37 [facility] Comment on above: Performed By: #### L P14 ####[address] [address] Bilirubin Ql (U) 0.8 mg/dL Normal 0.2-1.0 [facility] Comment on above: Performed By: #### L P14 ####[facility] [place], [place] [address] Calcium [Mass/Vol] 9.2 mg/dL Normal 8.5-10.1 [facility] Comment on above: Performed By: #### L P14 ####[address] [address] CO2 Blood 31 mEq/L Normal 21-32 [facility] Comment on above: Performed By: #### L P14 ####[facility] [place], [place] [address] Creatinine [Mass/Vol] 0.73 mg/dL Normal 0.51-0.95 [facility] Comment on above: Performed By: #### L P14 ####[address] [address] Glucose [Mass/Vol] 228 mg/dL High 70-99 [facility] Comment on above: Performed By: #### L P14 ####[address] [address] Protein [Mass/Vol] 7.0 g/dL Normal 6.4-8.2 [facility] Comment on above: Performed By: #### L P14 ####[address] [address] Urea nitrogen [Mass/Vol] 6 mg/dL Low 7-25 [facility] Comment on above: Performed By: #### L P14 ####[address] [address] Urea nitrogen/Creatinine [Mass ratio] 8 mg/mg Low 10-20 [facility] Comment on above: Performed By: #### L P14 ####[address] [address] Chloride [Moles/Vol] 98 mmol/L Normal 98-109 [facility] Comment on above: Result Comment: Test ing performed on an reeplay.it i-STAT. Performed By: #### L P14 ####[address] [address] Potassium [Moles/Vol] 4.2 mmol/L Normal 3.5-4.9 [facility] Comment on above: Result Comment: Test ing performed on an reeplay.it i-STAT. Performed By: #### L P14 ####[place] [address] Sodium [Moles/Vol] 138 mmol/L Normal 138-146 [facility] Comment on above: Result Comment: Test ing performed on an reeplay.it i-STAT. Performed By: #### L P14 ####[place] [address] Hemogramon 10-04-2018 Erythrocyte distribution width (RBC) [Ratio] 12.6 % Normal 11.5-15.9 [facility] Comment on above: Performed By: #### L CBC ####[place] [address] Hematocrit (Bld) [Volume fraction] 46.2 % Normal 37.0-47.0 [facility] Comment on above: Performed By: #### L CBC ####[place] [address] Hemoglobin (Bld) [Mass/Vol] 15.3 g/dL Normal 12.0-16.0 [facility] Comment on above: Performed By: #### L CBC ####[place] [address] MCH (RBC) [Entitic mass] 27.5 pg Normal 27.0-31.0 [facility] Comment on above: Performed By: #### L CBC ####[place] [address] MCHC (RBC) [Mass/Vol] 33.1 % Normal 32.0-36.0 [facility] Comment on above: Performed By: #### L CBC ####[place] [address] MCV (RBC) [Entitic vol] 83.1 fL Normal 81.0-99.0 [facility] Comment on above: Performed By: #### L CBC ####[place] [address] Platelet mean volume (Bld) [Entitic vol] 9.7 fL Normal 7.1-10.5 [facility] Comment on above: Performed By: #### L CBC ####[facility] [place] [address] Platelets (Bld) [#/Vol] 261 thou/cmm Normal 150-400 [facility] Comment on above: Performed By: #### L CBC ####[facility] [place] [address] RBC (Bld) [#/Vol] 5.56 mil/cmm High 4.20-5.40 [facility] Comment on above: Performed By: #### L CBC ####[place] [address] WBC (Bld) [#/Vol] 11.9 thou/cmm High 4.8-10.5 [facility] Comment on above: Performed By: #### L CBC ####[place] [address] Lactic acidon 10-04-2018 Lactate [Moles/Vol] 1.2 mmol/L Normal 0.4-2.0 [facility] Comment on above: Performed By: #### L CBCD #### [place] [address] Lipase Bloodon 10-04-2018 Lipase Blood 85 U/L Normal 73-393 [facility] Comment on above: Performed By: #### L LIP ####[place] [address] MDRD eGFRon 10-04-2018 GFR/1.73 sq M predicted among non-blacks MDRD (S/P/Bld) [Vol rate/Area] mL/min/{1.73_m2} Normal >60mL/min/ 1.73m2 [facility] Comment on above: Result Comment: If t he patient is , multiply the result by 1.210. Performed By: #### L GFR ####[place] [address] Macroscopic Urinalysison Appearance (U) CLEAR Normal [facility] Comment on above: Performed By: #### L CBCD #### [facility] [address] [place] [address] Bilirubin Urine Negative Normal Negative [facility] Comment on above: Performed By: #### L CBCD #### [facility] [address] [place] [address] Color (U) YELLOW Normal [facility] Comment on above: Performed By: #### L CBCD #### [facility] [address] [place] [address] Glucose Ql (U) TRACE Abnormal Negative [facility] Comment on above: Performed By: #### L CBCD #### [facility] [address] [place] [address] Hemoglobin,Urine Negative Normal Negative [facility] Comment on above: Performed By: #### L CBCD #### [place] [address] Ketone Urine Negative Normal Negative [facility] Comment on above: Performed By: #### L CBCD #### [facility] [address] [place] [address] Leukocytes Esterase Negative Normal Negative [facility] Comment on above: Performed By: #### L CBCD #### [place] [address] Nitrites Urine Negative Normal Negative [facility] Comment on above: Performed By: #### L CBCD #### [place] [address] pH (U) 7.0 [pH] Normal 5.0-8.0 [facility] Comment on above: Performed By: #### L CBCD #### [facility] [address] [place] [address] Protein (U) [Mass/Vol] Negative Normal Negative [facility] Comment on above: Performed By: #### L CBCD #### [place] [address] Specific [place], Ur 1.015 Normal 1.005-1 .03 0 [facility] Comment on above: Performed By: #### L CBCD #### [place] [id number] Urobilinogen,Ur 0.2 EU/dL Normal 0.2-1.0 [facility] Comment on above: Performed By: #### L CBCD #### [facility] [address] [place] [address] Troponin Ion 10-04-2018 Troponin I.cardiac [Mass/Vol] ng/mL Normal <=0.07 [facility] Comment on above: Performed By: #### L TRP ####[facility] [place] [address] Urine HCG, Qual.on 9 Beta HCG ( test) Ql (U) Negative Normal Negative [facility] Comment on above: Performed By: #### L HCG2 ####[facility] [place] [address] Basic Panelon 09-29-2018 Anion gap [Moles/Vol] 14 mmol/L Normal 8-20 [facility] Comment on above: Performed By: #### L GFR #### [facility] [address] [place] [address] Calcium [Mass/Vol] 8.9 mg/dL Normal 8.5-10.1 [facility] Comment on above: Performed By: #### L GFR #### [facility] [address] [place] [address] CO2 Blood 28 mEq/L Normal 21-32 [facility] Comment on above: Performed By: #### L GFR #### [place] [address] Creatinine [Mass/Vol] 0.60 mg/dL Normal 0.51-0.95 [facility] Comment on above: Performed By: #### L GFR #### [facility] [address] [place] [address] Glucose [Mass/Vol] 154 mg/dL High 70-99 [facility] Comment on above: Performed By: #### L GFR #### [facility] [address] [place] [address] Urea nitrogen [Mass/Vol] 5 mg/dL Low 7-25 [facility] Comment on above: Performed By: #### L GFR #### [facility] [place], [place] [address] Urea nitrogen/Creatinine [Mass ratio] 8 mg/mg Low 10-20 [facility] Comment on above: Performed By: #### L GFR #### [facility] [place], [place] [address] Chloride [Moles/Vol] 101 mmol/L Normal 98-109 [facility] Comment on above: Result Comment: Test ing performed on an Palacio i-STAT. Performed By: #### L GFR #### [facility] [address] [place], [place] [address] Potassium [Moles/Vol] 3.9 mmol/L Normal 3.5-4.9 [facility] Comment on above: Result Comment: Test ing performed on an Palacio i-STAT. Performed By: #### L GFR #### [address] [address] Sodium [Moles/Vol] 139 mmol/L Normal 138-146 [facility] Comment on above: Result Comment: Test ing performed on an Palacio i-STAT. Performed By: #### L GFR #### [address] [address] D-Dimer Quantitativeon 09-29 D-Dimer Quantitative 336 ng/mL(FEU) Normal <450 [facility] Comment on above: Result Comment: 500 ng/mL [...] of >=35.8%. Performed By: #### L DMR ####[address], [place] [address] Hemogramon 09-29-2018 Erythrocyte distribution width (RBC) [Ratio] 12.8 % Normal 11.5-15.9 [facility] Comment on above: Performed By: #### L GFR #### [facility] [place], [place] [address] Hematocrit (Bld) [Volume fraction] 46.3 % Normal 37.0-47.0 [facility] Comment on above: Performed By: #### L GFR #### [facility] [address] [place] [address] Hemoglobin (Bld) [Mass/Vol] 15.7 g/dL Normal 12.0-16.0 [facility] Comment on above: Performed By: #### L GFR #### [place] [address] MCH (RBC) [Entitic mass] 27.8 pg Normal 27.0-31.0 [facility] Comment on above: Performed By: #### L GFR #### [place] [address] MCHC (RBC) [Mass/Vol] 33.9 % Normal 32.0-36.0 [facility] Comment on above: Performed By: #### L GFR #### [place] [address] MCV (RBC) [Entitic vol] 81.9 fL Normal 81.0-99.0 [facility] Comment on above: Performed By: #### L GFR #### [address] [address] Platelet mean volume (Bld) [Entitic vol] 10.0 fL Normal 7.1-10.5 [facility] Comment on above: Performed By: #### L GFR #### [address] [address] Platelets (Bld) [#/Vol] 231 thou/cmm Normal 150-400 [facility] Comment on above: Performed By: #### L GFR #### [place] [address] RBC (Bld) [#/Vol] 5.65 mil/cmm High 4.20-5.40 [facility] Comment on above: Performed By: #### L GFR #### [place] [address] WBC (Bld) [#/Vol] 10.8 thou/cmm High 4.8-10.5 [facility] Comment on above: Performed By: #### L GFR #### [place] [address] MDRD eGFRon 09-29-2018 GFR/1.73 sq M predicted among non-blacks MDRD (S/P/Bld) [Vol rate/Area] mL/min/{1.73_m2} Normal >60mL/min/ 1.73m2 [facility] Comment on above: Result Comment: If t he patient is , multiply the result by 1.210. Performed By: #### L GFR ####[place] [address] Troponin Ion 09-29-2018 Troponin I.cardiac [Mass/Vol] ng/mL Normal <=0.07 [facility] Comment on above: Performed By: #### L TRP ####[place] [address] Troponin I.cardiac [Mass/Vol] ng/mL Normal <=0.07 [facility] Comment on above: Performed By: #### L TRP ####[place] [address] Basic Panelon 09-25-2018 Creatinine [Mass/Vol] 0.64 mg/dL Normal 0.51-0.95 [facility] Comment on above: Performed By: #### L GFR #### [place] [address] Anion gap [Moles/Vol] 10 mmol/L Normal 8-16 [facility] Comment on above: Performed By: #### L GFR #### [place] [address] CO2 [Moles/Vol] 26 mmol/L Normal 21-32 [facility] Comment on above: Performed By: #### L GFR #### [facility] [place], [place] [address] Glucose [Mass/Vol] 87 mg/dL Normal 70-99 [facility] Comment on above: Performed By: #### L GFR #### [facility] [place], [place] [address] Urea nitrogen [Mass/Vol] 13 mg/dL Normal 7-18 [facility] Comment on above: Performed By: #### L GFR #### [facility] [place], [place] [address] Calcium [Mass/Vol] 8.9 mg/dL Normal 8.5-10.1 [facility] Comment on above: Performed By: #### L GFR #### [address] [address] Chloride [Moles/Vol] 104 mmol/L Normal 98-107 [facility] Comment on above: Performed By: #### L GFR #### [address] [address] Potassium [Moles/Vol] 3.6 mmol/L Normal 3.5-5.1 [facility] Comment on above: Performed By: #### L GFR #### [address] [address] Sodium [Moles/Vol] 136 mmol/L Normal 136-145 [facility] Comment on above: Performed By: #### L GFR #### [address] [address] Glucose Meteron 09-25-2018 Glucose [Mass/Vol] 205 mg/dL High 70-99 [facility] Comment on above: Result Comment: CHAYITO MÉNDEZ Performed By: #### L P14 #### [address] [address] Hemogram/Diffon 09-25-2018 Abs Immature Grans 0.04 thou/cmm Normal 0.00-0.05 [facility] Comment on above: Performed By: #### L GFR #### [place] [address] Abs. Baso 0.06 thou/cmm Normal 0.01-0.08 [facility] Comment on above: Result Comment: Smea r scanned; tech agrees with automated differential Performed By: #### L GFR #### [place] [address] Abs. Carroll 0.72 thou/cmm High 0.27-0.70 [facility] Comment on above: Performed By: #### L GFR #### [place] [address] Abs. Neut (ANC) 7.66 thou/cmm High 1.56-6.13 [facility] Comment on above: Performed By: #### L GFR #### [place] [address] Basophils/100 WBC (Bld) 0.5 % Normal [facility] Comment on above: Performed By: #### L GFR #### [place] [address] Eosinophils (Bld) [#/Vol] 0.13 thou/cmm Normal 0.00-0.31 [facility] Comment on above: Performed By: #### L GFR #### [place] [address] Eosinophils/100 WBC (Bld) 1.0 % Normal [facility] Comment on above: Performed By: #### L GFR #### [place] [address] Immature Grans 0.30 % Normal [facility] Comment on above: Performed By: #### L GFR #### [place] [address] Lymphocytes (Bld) [#/Vol] 4.07 thou/cmm High 1.18-3.74 [facility] Comment on above: Performed By: #### L GFR #### [place] [address] Lymphocytes/100 WBC (Bld) 32.1 % Normal [facility] Comment on above: Performed By: #### L GFR #### [facility] [address] [place] [address] Monocytes/100 WBC (Bld) 5.7 % Normal [facility] Comment on above: Performed By: #### L GFR #### [facility] [address] [place] [address] Seg Neutrophil 60.4 % Normal [facility] Comment on above: Performed By: #### L GFR #### [facility] [address] [place] [address] Erythrocyte distribution width (RBC) [Ratio] 12.5 % Normal 11.7-14.4 [facility] Comment on above: Performed By: #### L GFR #### [place] [address] Hematocrit (Bld) [Volume fraction] 49.4 % High 34.1-44.9 [facility] Comment on above: Performed By: #### L GFR #### [place] [address] Hemoglobin (Bld) [Mass/Vol] 16.6 g/dL High 11.2-15.7 [facility] Comment on above: Performed By: #### L GFR #### [place] [address] MCH (RBC) [Entitic mass] 27.8 pg Normal 25.6-32.2 [facility] Comment on above: Performed By: #### L GFR #### [place] [address] MCHC (RBC) [Mass/Vol] 33.6 % Normal 31.6-34.8 [facility] Comment on above: Performed By: #### L GFR #### [place] [address] MCV (RBC) [Entitic vol] 82.7 fL Normal 79.4-94.8 [facility] Comment on above: Performed By: #### L GFR #### [place] [address] Platelet mean volume (Bld) [Entitic vol] 9.8 fL Normal 9.4-12.3 [facility] Comment on above: Performed By: #### L GFR #### [facility] [address] [place], [place] [address] Platelets (Bld) [#/Vol] 241 thou/cmm Normal 182-369 [facility] Comment on above: Performed By: #### L GFR #### [facility] [address] [place], [place] [address] RBC (Bld) [#/Vol] 5.97 mil/cmm High 3.93-5.22 [facility] Comment on above: Performed By: #### L GFR #### [place] [address] RDW SD 37.4 fl Normal 36.4-46.3 [facility] Comment on above: Performed By: #### L GFR #### [facility] [address] [place], [place] [address] WBC (Bld) [#/Vol] 12.69 thou/cmm High 3.98-10.04 [facility] Comment on above: Performed By: #### L GFR #### [place] [address] MDRD GFRon 09-25-2018 GFR/1.73 sq M predicted among non-blacks MDRD (S/P/Bld) [Vol rate/Area] mL/min/{1.73_m2} Normal >60mL/min/ 1.73m2 [facility] Comment on above: Result Comment: If t he patient is , multiply the result by 1.210. Performed By: #### L GFR #### [facility] [address] [place] [id number] Urinalysis, reflexon 019 Reflex Comment see below Normal [facility] Comment on above: Result Comment: Refl ex to culture is not indicated based on established laboratory criteria. Performed By: #### L GFR #### [facility] [address] [place], [place] [address] Bacteria LM.HPF (Urine sed) [#/Area] NONE Normal None [facility] Comment on above: Performed By: #### L GFR #### [facility] [address] [place] [address] Ep Cells Urine 13.9 /hpf High 0.0-5.0 [facility] Comment on above: Performed By: #### L GFR #### [facility] [address] [place] [address] Hyaline Cast 2.4 /lpf High 0.0-1.0 [facility] Comment on above: Performed By: #### L GFR #### [place] [address] RBC LM.HPF (Urine sed) [#/Area] 1.3 /[HPF] Normal 0.0-5.0 [facility] Comment on above: Performed By: #### L GFR #### [place] [address] WBC, reflex 2.90 /hpf Normal 0.00-5.00 [facility] Comment on above: Performed By: #### L GFR #### [place] [address] Appearance (U) CLOUDY Normal [facility] Comment on above: Performed By: #### L GFR #### [place] [address] Bilirubin (U) [Mass/Vol] see below Abnormal Negative [facility] Comment on above: Result Comment: Dete cted (Unable to confirm). Performed By: #### L GFR #### [place] [address] Color (U) DK YELLOW Normal [facility] Comment on above: Performed By: #### L GFR #### [place] [address] Glucose Ql (U) 250 mg/dL Abnormal Negative [facility] Comment on above: Performed By: #### L GFR #### [place] [address] Hemoglobin,Urine Negative Normal Negative [facility] Comment on above: Performed By: #### L GFR #### [place] [address] Ketone Urine TRACE Abnormal Negative [facility] Comment on above: Performed By: #### L GFR #### [facility] [address] [place] [address] Leukocyte esterase Test strip Ql (U) TRACE Abnormal Negative [facility] Comment on above: Performed By: #### L GFR #### [facility] [address] [place] [address] Nitrite reflex Negative Normal Negative [facility] Comment on above: Performed By: #### L GFR #### [facility] [address] [place] [address] pH (U) 6.0 [pH] Normal 5.0-8.0 [facility] Comment on above: Performed By: #### L GFR #### [facility] [address] [place] [address] Protein (U) [Mass/Vol] TRACE Abnormal Negative [facility] Comment on above: Performed By: #### L GFR #### [place] [address] Specific [place], Ur 1.030 Normal 1.005-1 .03 0 [facility] Comment on above: Performed By: #### L GFR #### [place] [address] Urobilinogen,Ur 1.0 EU/dL Normal 0.0-1.0 [facility] Comment on above: Performed By: #### L GFR #### [place] [address] Comprehensive Panelon 2018 ALP [Catalytic activity/Vol] 114 U/L Normal 46-116 [facility] Comment on above: Performed By: #### L GFR #### [facility] [address] [place] [address] Bilirubin [Mass/Vol] 1.4 mg/dL High 0.2-1.0 [facility] Comment on above: Performed By: #### L GFR #### [place] [address] AST [Catalytic activity/Vol] 19 U/L Normal 9-37 [facility] Comment on above: Performed By: #### L GFR #### [facility] [address] [place], [place] [address] Creatinine [Mass/Vol] 0.56 mg/dL Normal 0.51-0.95 [facility] Comment on above: Performed By: #### L GFR #### [facility] [address] [place], [place] [address] Protein [Mass/Vol] 6.8 g/dL Normal 6.4-8.2 [facility] Comment on above: Performed By: #### L GFR #### [facility] [address] [place], [place] [address] ALT [Catalytic activity/Vol] 18 U/L Normal 12-78 [facility] Comment on above: Performed By: #### L GFR #### [facility] [address] [place], [place] [address] Glucose [Mass/Vol] 266 mg/dL High 70-99 [facility] Comment on above: Performed By: #### L GFR #### [facility] [address] [place], [place] [address] Albumin [Mass/Vol] 3.2 g/dL Low 3.4-5.0 [facility] Comment on above: Performed By: #### L GFR #### [facility] [address] [place], [place] [address] Anion gap [Moles/Vol] 11 mmol/L Normal 8-16 [facility] Comment on above: Performed By: #### L GFR #### [facility] [address] [place], [place] [address] Calcium [Mass/Vol] 8.9 mg/dL Normal 8.5-10.1 [facility] Comment on above: Performed By: #### L GFR #### [facility] [address] [place], [place] [address] CO2 [Moles/Vol] 25 mmol/L Normal 21-32 [facility] Comment on above: Performed By: #### L GFR #### [facility] [address] [place], [place] [address] Urea nitrogen [Mass/Vol] 8 mg/dL Normal 7-18 [facility] Comment on above: Performed By: #### L GFR #### [facility] [address] [place] [address] Chloride [Moles/Vol] 100 mmol/L Normal 98-107 [facility] Comment on above: Performed By: #### L GFR #### [facility] [address] [place] [address] Potassium [Moles/Vol] 3.9 mmol/L Normal 3.5-5.1 [facility] Comment on above: Performed By: #### L GFR #### [facility] [address] [place] [address] Sodium [Moles/Vol] 132 mmol/L Low 136-145 [facility] Comment on above: Performed By: #### L GFR #### [place] [address] Hemogramon 09-24-2018 Erythrocyte distribution width (RBC) [Ratio] 12.6 % Normal 11.7-14.4 [facility] Comment on above: Performed By: #### L GFR #### [place] [address] Hematocrit (Bld) [Volume fraction] 47.5 % High 34.1-44.9 [facility] Comment on above: Performed By: #### L GFR #### [place] [address] Hemoglobin (Bld) [Mass/Vol] 15.9 g/dL High 11.2-15.7 [facility] Comment on above: Performed By: #### L GFR #### [place] [address] MCH (RBC) [Entitic mass] 27.7 pg Normal 25.6-32.2 [facility] Comment on above: Performed By: #### L GFR #### [place] [address] MCHC (RBC) [Mass/Vol] 33.5 % Normal 31.6-34.8 [facility] Comment on above: Performed By: #### L GFR #### [place] [address] MCV (RBC) [Entitic vol] 82.8 fL Normal 79.4-94.8 [facility] Comment on above: Performed By: #### L GFR #### [place] [address] Platelet mean volume (Bld) [Entitic vol] 9.9 fL Normal 9.4-12.3 [facility] Comment on above: Performed By: #### L GFR #### [place] [address] Platelets (Bld) [#/Vol] 248 thou/cmm Normal 182-369 [facility] Comment on above: Performed By: #### L GFR #### [place] [address] RBC (Bld) [#/Vol] 5.74 mil/cmm High 3.93-5.22 [facility] Comment on above: Performed By: #### L GFR #### [place] [address] RDW SD 38.0 fl Normal 36.4-46.3 [facility] Comment on above: Performed By: #### L GFR #### [place] [address] WBC (Bld) [#/Vol] 11.62 thou/cmm High 3.98-10.04 [facility] Comment on above: Performed By: #### L GFR #### [place] [address] Lipid Profileon 09-24-2018 Cholesterol in HDL [Mass/Vol] 35 mg/dL Normal >40 [facility] Comment on above: Performed By: #### L GFR #### [place] [address] Cholesterol in LDL [Mass/Vol] 120 mg/dL Normal [facility] Comment on above: Result Comment: No C AD and with fewer than 2 CAD risk factors <160 mg/dL No CAD but with 2 or more CAD risk factors <130 mg/dL Definite CAD or other atherosclerotic disease <100 mg/dL Performed By: #### L GFR #### [address], [place] [address] Cholesterol in LDL/Cholesterol in HDL [Mass ratio] 3.4 Normal 0.6-3.6 [facility] Comment on above: Result Comment: LDL, VLDL,LDL/HDL, Invalid if Triglyceride >400 Performed By: #### L GFR #### [facility] [address] [place], [place] [address] Cholesterol.total/Pipe sterol in HDL [Mass ratio] 5.9 {ratio} High 1.8-5.3 [facility] Comment on above: Performed By: #### L GFR #### [facility] [address] [place], [place] [address] Cholesterol [Mass/Vol] 205 mg/dL High 0-199 [facility] Comment on above: Result Comment: <200 Desirable 200-240 Borderline >240 High Performed By: #### L GFR #### [address] [address] Cholesterol in VLDL [Mass/Vol] 50 mg/dL Normal <50 Desired [facility] Comment on above: Performed By: #### L GFR #### [address] [address] Triglyceride [Mass/Vol] 252 mg/dL High 0-149 [facility] Comment on above: Result Comment: < 20 0 Desirable Result invalid if not a fasting specimen. Performed By: #### L GFR #### [address] [address] Protimeon 09-24-2018 INR Coag (PPP) [Relative time] 0.97 {INR} Normal 0.90-1.30 [facility] Comment on above: Result Comment: Charissa min K Antagonist (VKA) Therapeutic Range: INR 2 to 3 (Target INR of 2.5) Note: For patients treated with VKA drugs, such as warfarin, the [place] [employer] 2012 Guideline recommends [...] Chest 2012; 141:7S-47S Sampson RA, et al. [facility] 2017; 70: 252-289 Performed By: #### L GFR #### [place] [address] PT Coag (PPP) [Time] 10.1 s Normal 9.7-13.0 [facility] Comment on above: Performed By: #### L GFR #### [place] [address] Beta Hydroxybutyrateon 09-23 Beta Hydroxybutyrate 0.70 mmol/L High <0.10-0.27 [facility] Comment on above: Performed By: #### L LIP #### [place] [address] CPKon 09-23-2018 CK [Catalytic activity/Vol] 58 U/L Normal 26-192 [facility] Comment on above: Performed By: #### L P14 #### [place] [address] Comprehensive Panelon 2018 Anion gap [Moles/Vol] 19 mmol/L Normal 8-20 [facility] Comment on above: Performed By: #### L LIP #### [place] [address] Glucose [Mass/Vol] 422 mg/dL Critically high 70-99 [facility] Comment on above: Result Comment: RESU LT RECHECKED Performed By: #### L LIP #### [place] [address] Chloride [Moles/Vol] 98 mmol/L Normal 98-109 [facility] Comment on above: Result Comment: Test ing performed on an reeplay[employer]it i-STAT. Performed By: #### L LIP #### [facility] [address] [place] [address] Potassium [Moles/Vol] 3.9 mmol/L Normal 3.5-4.9 [facility] Comment on above: Result Comment: Test ing performed on an [employer] i-STAT. Performed By: #### L LIP #### [facility] [address] [place] [address] Sodium [Moles/Vol] 135 mmol/L Low 138-146 [facility] Comment on above: Result Comment: Test ing performed on an [place] i-STAT. Performed By: #### L LIP #### [place] [address] Albumin [Mass/Vol] 3.6 g/dL Normal 3.4-5.0 [facility] Comment on above: Performed By: #### L LIP #### [place] [address] ALP [Catalytic activity/Vol] 131 U/L High 46-116 [facility] Comment on above: Performed By: #### L LIP #### [facility] [address] [place] [address] ALT-SGPT Blood 21 U/L Normal 14-63 [facility] Comment on above: Performed By: #### L LIP #### [place] [address] AST-SGOT Blood 28 U/L Normal 15-37 [facility] Comment on above: Performed By: #### L LIP #### [facility] [address] [place] [address] Bilirubin Ql (U) 1.2 mg/dL High 0.2-1.0 [facility] Comment on above: Performed By: #### L LIP #### [facility] [address] [place] [address] Calcium [Mass/Vol] 9.3 mg/dL Normal 8.5-10.1 [facility] Comment on above: Performed By: #### L LIP #### [place] [address] CO2 Blood 26 mEq/L Normal 21-32 [facility] Comment on above: Performed By: #### L LIP #### [facility] [address] [place], [place] [address] Creatinine [Mass/Vol] 0.51 mg/dL Normal 0.51-0.95 [facility] Comment on above: Performed By: #### L LIP #### [facility] [address] [place], [place] [address] Protein [Mass/Vol] 7.7 g/dL Normal 6.4-8.2 [facility] Comment on above: Performed By: #### L LIP #### [facility] [address] [place], [place] [address] Urea nitrogen [Mass/Vol] 9 mg/dL Normal 7-25 [facility] Comment on above: Performed By: #### L LIP #### [facility] [address] [place], [place] [address] Urea nitrogen/Creatinine [Mass ratio] 18 mg/mg Normal 10-20 [facility] Comment on above: Performed By: #### L LIP #### [facility] [address] [place], [place] [address] D-Dimer Quantitativeon 09-23 D-Dimer Quantitative 417 ng/mL(FEU) Normal <450 [facility] Comment on above: Result Comment: 500 ng/mL [...] P14 #### [facility] [address] [place], [place] [address] Glucose Bloodon 09-23-2018 Glucose [Mass/Vol] 393 mg/dL High 70-99 [facility] Comment on above: Performed By: #### L P14 #### [facility] [address] [place], [place] [address] Glucose Meteron 09-23-2018 Glucose [Mass/Vol] 317 mg/dL High 70-99 [facility] Comment on above: Result Comment: CHAYITO MÉNDEZ MD NOTIFIED [place] [address] Performed By: #### L LIP #### [address] [address] Hemogram/Diffon 09-23-2018 Abs. Baso 0.05 thou/cmm Normal 0.00-0.08 [facility] Comment on above: Performed By: #### L LIP #### [place] [address] Abs. [place] 0.38 thou/cmm Normal 0.20-1.00 [facility] Comment on above: Performed By: #### L LIP #### [place] [address] Abs. Neut (ANC) 8.10 thou/cmm High 3.00-5.67 [facility] Comment on above: Performed By: #### L LIP #### [address] [address] Basophils/100 WBC (Bld) 0.5 % Normal [facility] Comment on above: Performed By: #### L LIP #### [address] [address] Eosinophils (Bld) [#/Vol] 0.05 thou/cmm Normal 0.00-0.41 [facility] Comment on above: Performed By: #### L LIP #### [address] [address] Eosinophils/100 WBC (Bld) 0.5 % Normal [facility] Comment on above: Performed By: #### L LIP #### [place] [address] Erythrocyte distribution width (RBC) [Ratio] 12.9 % Normal 11.5-15.9 [facility] Comment on above: Performed By: #### L LIP #### [facility] [address] [place], [place] [address] Hematocrit (Bld) [Volume fraction] 47.8 % High 37.0-47.0 [facility] Comment on above: Performed By: #### L LIP #### [address] [address] Hemoglobin (Bld) [Mass/Vol] 16.5 g/dL High 12.0-16.0 [facility] Comment on above: Performed By: #### L LIP #### [address] [address] Lymphocytes (Bld) [#/Vol] 1.52 thou/cmm Normal 1.50-3.65 [facility] Comment on above: Performed By: #### L LIP #### [address] [address] Lymphocytes/100 WBC (Bld) 15.0 % Normal [facility] Comment on above: Performed By: #### L LIP #### [address] [address] MCH (RBC) [Entitic mass] 28.0 pg Normal 27.0-31.0 [facility] Comment on above: Performed By: #### L LIP #### [address] [address] MCHC (RBC) [Mass/Vol] 34.5 % Normal 32.0-36.0 [facility] Comment on above: Performed By: #### L LIP #### [address] [address] MCV (RBC) [Entitic vol] 81.0 fL Normal 81.0-99.0 [facility] Comment on above: Performed By: #### L LIP #### [address] [address] Monocytes/100 WBC (Bld) 3.8 % Normal [facility] Comment on above: Performed By: #### L LIP #### [facility] [address] [place] [address] Platelet mean volume (Bld) [Entitic vol] 10.2 fL Normal 7.1-10.5 [facility] Comment on above: Performed By: #### L LIP #### [facility] [address] [place], [place] [address] Platelets (Bld) [#/Vol] 202 thou/cmm Normal 150-400 [facility] Comment on above: Performed By: #### L LIP #### [facility] [address] [place] [address] RBC (Bld) [#/Vol] 5.90 mil/cmm High 4.20-5.40 [facility] Comment on above: Performed By: #### L LIP #### [place] [address] Seg Neutrophil 80.2 % Normal [facility] Comment on above: Performed By: #### L LIP #### [place] [address] WBC (Bld) [#/Vol] 10.1 thou/cmm Normal 4.8-10.8 [facility] Comment on above: Performed By: #### L LIP #### [place] [address] Hgb A1con 09-23-2018 HbA1c (Bld) [Mass fraction] 11.6 % High 4.2-6.3 [facility] Comment on above: Result Comment: Meth od is National Glycohemoglobin Standardization Program (NGSP) compliant. Performed By: #### L P14 #### [place] [address] HbA1c (Bld) [Mass fraction] 286 mg/dl Normal [facility] Comment on above: Performed By: #### L P14 #### [facility] [address] [place] [address] Lipase Bloodon 09-23-2018 Lipase Blood 131 U/L Normal 73-393 [facility] Comment on above: Performed By: #### L LIP #### [place] [address] MDRD eGFRon 09-23-2018 GFR/1.73 sq M predicted among non-blacks MDRD (S/P/Bld) [Vol rate/Area] mL/min/{1.73_m2} Normal >60mL/min/ 1.73m2 [facility] Comment on above: Result Comment: If t he patient is , multiply the result by 1.210. Performed By: #### L LIP #### [place] [address] Magnesium Bloodon 09-23-2018 Magnesium [Mass/Vol] 2.1 mg/dL Normal 1.6-2.6 [facility] Comment on above: Performed By: #### L P14 #### [place] [address] N-terminal Pro-BNPon 019 Natriuretic peptide B (Bld) [Mass/Vol] 2027 pg/mL Normal [facility] Comment on above: Result Comment: Acut e CHF Rule-in <50 yrs old >= 450 pg/ml >50 yrs old >= 900 pg/ml Abnormal Pro-BNP All patients >=300 pg/ml Performed By: #### L P14 #### [place] [address] Troponin Ion 09-23-2018 Troponin I.cardiac [Mass/Vol] ng/mL Normal 0.015-0.[address] [place] [address] Comment on above: Performed By: #### L P14 #### [place] [address] Troponin I.cardiac [Mass/Vol] ng/mL Normal 0.015-0.04 5 [facility] Comment on above: Performed By: #### L P14 #### [place] [address] Troponin I.cardiac [Mass/Vol] ng/mL Normal <=0.07 [facility] Comment on above: Performed By: #### L P14 #### [place] [address] Troponin I.cardiac [Mass/Vol] ng/mL Normal <=0.07 [facility] Comment on above: Performed By: #### L LIP #### [facility] [address] [place] [address] Comprehensive Panelon 2018 Albumin [Mass/Vol] 3.8 g/dL Normal 3.4-5.0 [facility] Comment on above: Performed By: #### L MCBD #### [facility] [address] [place] [address] ALP [Catalytic activity/Vol] 133 U/L High 46-116 [facility] Comment on above: Performed By: #### L MCBD #### [facility] [address] [place] [address] ALT-SGPT Blood 20 U/L Normal 14-63 [facility] Comment on above: Performed By: #### L MCBD #### [facility] [address] [place] [address] AST-SGOT Blood 17 U/L Normal 15-37 [facility] Comment on above: Performed By: #### L MCBD #### [facility] [address] [place] [address] Bilirubin Ql (U) 0.8 mg/dL Normal 0.2-1.0 [facility] Comment on above: Performed By: #### L MCBD #### [facility] [address] [place] [address] Calcium [Mass/Vol] 9.4 mg/dL Normal 8.5-10.1 [facility] Comment on above: Performed By: #### L MCBD #### [facility] [address] [place] [address] Creatinine [Mass/Vol] 0.58 mg/dL Normal 0.51-0.95 [facility] Comment on above: Performed By: #### L MCBD #### [facility] [address] [place] [address] Glucose [Mass/Vol] 375 mg/dL High 70-99 [facility] Comment on above: Performed By: #### L MCBD #### [facility] [address] [place] [address] Protein [Mass/Vol] 7.9 g/dL Normal 6.4-8.2 [facility] Comment on above: Performed By: #### L MCBD #### [facility] [address] [place], [place] [address] Urea nitrogen [Mass/Vol] 5 mg/dL Low 7-25 [facility] Comment on above: Performed By: #### L MCBD #### [facility] [address] [place], [place] [address] Urea nitrogen/Creatinine [Mass ratio] 9 mg/mg Low 10-20 [facility] Comment on above: Performed By: #### L MCBD #### [facility] [address] [place], [place] [address] Anion gap [Moles/Vol] 15 mmol/L Normal 8-20 [facility] Comment on above: Performed By: #### L MCBD #### [facility] [address] [place], [place] [address] CO2 Blood 27 mEq/L Normal 21-32 [facility] Comment on above: Performed By: #### L MCBD #### [facility] [address] [place], [place] [address] Chloride [Moles/Vol] 97 mmol/L Low 98-109 [facility] Comment on above: Result Comment: Test ing performed on an Palacio i-STAT. Performed By: #### L MCBD #### [address] [address] Potassium [Moles/Vol] 4.5 mmol/L Normal 3.5-4.9 [facility] Comment on above: Result Comment: Test ing performed on an Palacio i-STAT. Performed By: #### L MCBD #### [facility] [address] [place], [place] [address] Sodium [Moles/Vol] 135 mmol/L Low 138-146 [facility] Comment on above: Result Comment: Test ing performed on an Palacio i-STAT. Performed By: #### L MCBD #### [address] [address] Hemogram/Diffon 09-06-2018 Abs. Baso 0.05 thou/cmm Normal 0.00-0.08 [facility] Comment on above: Performed By: #### L MCBD #### [facility] [address] [place], [place] [address] Abs. [place] 0.43 thou/cmm Normal 0.20-1.00 [facility] Comment on above: Performed By: #### L MCBD #### [facility] [address] [place], [place] [address] Abs. Neut (ANC) 5.29 thou/cmm Normal 3.00-5.67 [facility] Comment on above: Performed By: #### L MCBD #### [facility] [address] [place], [place] [address] Basophils/100 WBC (Bld) 0.7 % Normal [facility] Comment on above: Performed By: #### L MCBD #### [address] [address] Eosinophils (Bld) [#/Vol] 0.11 thou/cmm Normal 0.00-0.41 [facility] Comment on above: Performed By: #### L MCBD #### [place] [address] Eosinophils/100 WBC (Bld) 1.4 % Normal [facility] Comment on above: Performed By: #### L MCBD #### [address] [address] Erythrocyte distribution width (RBC) [Ratio] 12.9 % Normal 11.5-15.9 [facility] Comment on above: Performed By: #### L MCBD #### [facility] [address] [place] [address] Hematocrit (Bld) [Volume fraction] 48.3 % High 37.0-47.0 [facility] Comment on above: Performed By: #### L MCBD #### [facility] [address] [place], [place] [address] Hemoglobin (Bld) [Mass/Vol] 16.4 g/dL High 12.0-16.0 [facility] Comment on above: Performed By: #### L MCBD #### [facility] [address] [place], [place] [address] Lymphocytes (Bld) [#/Vol] 1.72 thou/cmm Normal 1.50-3.65 [facility] Comment on above: Performed By: #### L MCBD #### [facility] [address] [place], [place] [address] Lymphocytes/100 WBC (Bld) 22.6 % Normal [facility] Comment on above: Performed By: #### L MCBD #### [facility] [address] [place], [place] [address] MCH (RBC) [Entitic mass] 27.8 pg Normal 27.0-31.0 [facility] Comment on above: Performed By: #### L MCBD #### [facility] [address] [place] [address] MCHC (RBC) [Mass/Vol] 34.0 % Normal 32.0-36.0 [facility] Comment on above: Performed By: #### L MCBD #### [facility] [address] [place] [address] MCV (RBC) [Entitic vol] 82.0 fL Normal 81.0-99.0 [facility] Comment on above: Performed By: #### L MCBD #### [place] [address] Monocytes/100 WBC (Bld) 5.7 % Normal [facility] Comment on above: Performed By: #### L MCBD #### [facility] [address] [place] [address] Platelet mean volume (Bld) [Entitic vol] 10.2 fL Normal 7.1-10.5 [facility] Comment on above: Performed By: #### L MCBD #### [facility] [address] [place], [place] [address] Platelets (Bld) [#/Vol] 211 thou/cmm Normal 150-400 [facility] Comment on above: Performed By: #### L MCBD #### [place] [address] RBC (Bld) [#/Vol] 5.89 mil/cmm High 4.20-5.40 [facility] Comment on above: Performed By: #### L MCBD #### [facility] [address] [place] [address] Seg Neutrophil 69.6 % Normal [facility] Comment on above: Performed By: #### L MCBD #### [facility] [address] [place] [address] WBC (Bld) [#/Vol] 7.6 thou/cmm Normal 4.8-10.8 [facility] Comment on above: Performed By: #### L MCBD #### [place] [address] Ketoneson 09-06-2018 Ketones Ql (U) Negative Normal Negative [facility] Comment on above: Performed By: #### L MCBD #### [place] [address] Lipase Bloodon 09-06-2018 Lipase Blood 112 U/L Normal 73-393 [facility] Comment on above: Performed By: #### L LIP #### [place] [address] MDRD eGFRon 09-06-2018 GFR/1.73 sq M predicted among non-blacks MDRD (S/P/Bld) [Vol rate/Area] mL/min/{1.73_m2} Normal >60mL/min/ 1.73m2 [facility] Comment on above: Result Comment: If t he patient is , multiply the result by 1.210. Performed By: #### L LIP #### [facility] [address] [place] [address] Macroscopic Urinalysison Appearance (U) CLEAR Normal [facility] Comment on above: Performed By: #### L LIP #### [place] [address] Bilirubin Urine Negative Normal Negative [facility] Comment on above: Performed By: #### L LIP #### [place] [address] Color (U) YELLOW Normal [facility] Comment on above: Performed By: #### L LIP #### [facility] [address] [place] [address] Glucose Ql (U) 2+ Abnormal Negative [facility] Comment on above: Performed By: #### L LIP #### [facility] [address] [place] [address] Hemoglobin,Urine Negative Normal Negative [facility] Comment on above: Performed By: #### L LIP #### [facility] [address] [place] [address] Ketone Urine Negative Normal Negative [facility] Comment on above: Performed By: #### L LIP #### [place] [address] Leukocytes Esterase Negative Normal Negative [facility] Comment on above: Performed By: #### L LIP #### [place] [address] Nitrites Urine Negative Normal Negative [facility] Comment on above: Performed By: #### L LIP #### [place] [address] pH (U) 7.0 [pH] Normal 5.0-8.0 [facility] Comment on above: Performed By: #### L LIP #### [place] [address] Protein (U) [Mass/Vol] Negative Normal Negative [facility] Comment on above: Performed By: #### L LIP #### [place] [address] Specific [place], Ur 1.020 Normal 1.005-1 .03 0 [facility] Comment on above: Performed By: #### L LIP #### [place] [address] Urobilinogen,Ur 0.2 EU/dL Normal 0.0-1.0 [facility] Comment on above: Performed By: #### L LIP #### [place] [address] Basic Panelon 08-16-2018 Anion gap [Moles/Vol] 16 mmol/L Normal 8-20 [facility] Comment on above: Performed By: #### L MCBD #### [facility] [address] [place], [place] [address] Chloride [Moles/Vol] 99 mmol/L Normal 98-109 [facility] Comment on above: Result Comment: Test ing performed on an Palacio i-STAT. Performed By: #### L MCBD #### [facility] [address] [place], [place] [address] Potassium [Moles/Vol] 3.9 mmol/L Normal 3.5-4.9 [facility] Comment on above: Result Comment: Test ing performed on an Palacio i-STAT. Performed By: #### L MCBD #### [facility] [address] [place], [place] [address] Sodium [Moles/Vol] 137 mmol/L Low 138-146 [facility] Comment on above: Result Comment: Test ing performed on an Palacio i-STAT. Performed By: #### L MCBD #### [facility] [address] [place], [place] [address] Calcium [Mass/Vol] 9.3 mg/dL Normal 8.5-10.1 [facility] Comment on above: Performed By: #### L MCBD #### [facility] [address] [place], [place] [address] CO2 Blood 26 mEq/L Normal 21-32 [facility] Comment on above: Performed By: #### L MCBD #### [address] [address] Creatinine [Mass/Vol] 0.57 mg/dL Normal 0.51-0.95 [facility] Comment on above: Performed By: #### L MCBD #### [facility] [address] [place], [place] [address] Glucose [Mass/Vol] 336 mg/dL High 70-99 [facility] Comment on above: Performed By: #### L MCBD #### [address] [address] Urea nitrogen [Mass/Vol] 7 mg/dL Normal 7-25 [facility] Comment on above: Performed By: #### L MCBD #### [facility] [address] [place] [address] Urea nitrogen/Creatinine [Mass ratio] 12 mg/mg Normal 10-20 [facility] Comment on above: Performed By: #### L MCBD #### [facility] [address] [place] [address] Hemogram/Diffon 08-16-2018 Abs. Baso 0.08 thou/cmm Normal 0.00-0.08 [facility] Comment on above: Performed By: #### L MCBD #### [facility] [address] [place] [address] Abs. [place] 0.61 thou/cmm Normal 0.20-1.00 [facility] Comment on above: Performed By: #### L MCBD #### [facility] [address] [place] [address] Abs. Neut (ANC) 8.11 thou/cmm High 3.00-5.67 [facility] Comment on above: Performed By: #### L MCBD #### [facility] [address] [place] [address] Basophils/100 WBC (Bld) 0.7 % Normal [facility] Comment on above: Performed By: #### L MCBD #### [facility] [address] [place] [address] Eosinophils (Bld) [#/Vol] 0.07 thou/cmm Normal 0.00-0.41 [facility] Comment on above: Performed By: #### L MCBD #### [place] [address] Eosinophils/100 WBC (Bld) 0.6 % Normal [facility] Comment on above: Performed By: #### L MCBD #### [facility] [address] [place] [address] Erythrocyte distribution width (RBC) [Ratio] 12.9 % Normal 11.5-15.9 [facility] Comment on above: Performed By: #### L MCBD #### [place] [address] Hematocrit (Bld) [Volume fraction] 46.9 % Normal 37.0-47.0 [facility] Comment on above: Performed By: #### L MCBD #### [facility] [address] [place], [place] [address] Hemoglobin (Bld) [Mass/Vol] 16.3 g/dL High 12.0-16.0 [facility] Comment on above: Performed By: #### L MCBD #### [facility] [address] [place], [place] [address] Lymphocytes (Bld) [#/Vol] 2.63 thou/cmm Normal 1.50-3.65 [facility] Comment on above: Performed By: #### L MCBD #### [facility] [address] [place], [place] [address] Lymphocytes/100 WBC (Bld) 22.9 % Normal [facility] Comment on above: Performed By: #### L MCBD #### [address] [address] MCH (RBC) [Entitic mass] 28.0 pg Normal 27.0-31.0 [facility] Comment on above: Performed By: #### L MCBD #### [address] [address] MCHC (RBC) [Mass/Vol] 34.8 % Normal 32.0-36.0 [facility] Comment on above: Performed By: #### L MCBD #### [address] [address] MCV (RBC) [Entitic vol] 80.4 fL Low 81.0-99.0 [facility] Comment on above: Performed By: #### L MCBD #### [address] [address] Monocytes/100 WBC (Bld) 5.3 % Normal [facility] Comment on above: Performed By: #### L MCBD #### [address] [address] Platelet mean volume (Bld) [Entitic vol] 10.1 fL Normal 7.1-10.5 [facility] Comment on above: Performed By: #### L MCBD #### [facility] [address] [place], [place] [address] Platelets (Bld) [#/Vol] 257 thou/cmm Normal 150-400 [facility] Comment on above: Performed By: #### L MCBD #### [facility] [address] [place] [address] RBC (Bld) [#/Vol] 5.83 mil/cmm High 4.20-5.40 [facility] Comment on above: Performed By: #### L MCBD #### [facility] [address] [place] [address] Seg Neutrophil 70.5 % Normal [facility] Comment on above: Performed By: #### L MCBD #### [facility] [address] [place] [address] WBC (Bld) [#/Vol] 11.5 thou/cmm High 4.8-10.8 [facility] Comment on above: Performed By: #### L MCBD #### [place] [address] MDRD eGFRon 08-16-2018 GFR/1.73 sq M predicted among non-blacks MDRD (S/P/Bld) [Vol rate/Area] mL/min/{1.73_m2} Normal >60mL/min/ 1.73m2 [facility] Comment on above: Result Comment: If t he patient is , multiply the result by 1.210. Performed By: #### L MCBD #### [facility] [address] [place] [address] Basic Panelon 07-31-2018 Anion gap [Moles/Vol] 17 mmol/L Normal 8-20 [facility] Comment on above: Performed By: #### L MCBD #### [facility] [address] [place] [id number] Chloride [Moles/Vol] 97 mmol/L Low 98-109 [facility] Comment on above: Result Comment: Test ing performed on an reeplay.it i-STAT. Performed By: #### L MCBD #### [address] [place], [place] [address] Potassium [Moles/Vol] 4.4 mmol/L Normal 3.5-4.9 [facility] Comment on above: Result Comment: Test ing performed on an Palacio i-STAT. Performed By: #### L MCBD #### [facility] [address] [place], [place] [address] Sodium [Moles/Vol] 134 mmol/L Low 138-146 [facility] Comment on above: Result Comment: Test ing performed on an Palacio i-STAT. Performed By: #### L MCBD #### [facility] [address] [place], [place] [address] Calcium [Mass/Vol] 9.2 mg/dL Normal 8.5-10.1 [facility] Comment on above: Performed By: #### L MCBD #### [address] [address] CO2 Blood 24 mEq/L Normal 21-32 [facility] Comment on above: Performed By: #### L MCBD #### [address] [address] Creatinine [Mass/Vol] 0.52 mg/dL Normal 0.51-0.95 [facility] Comment on above: Performed By: #### L MCBD #### [facility] [address] [place], [place] [address] Glucose [Mass/Vol] 444 mg/dL Critically high 70-99 [facility] Comment on above: Performed By: #### L MCBD #### [facility] [address] [place], [place] [address] Urea nitrogen [Mass/Vol] 7 mg/dL Normal 7-25 [facility] Comment on above: Performed By: #### L MCBD #### [facility] [address] [place], [place] [address] Urea nitrogen/Creatinine [Mass ratio] 14 mg/mg Normal 10-20 [facility] Comment on above: Performed By: #### L MCBD #### [address] [address] Hemogram/Diffon 07-31-2018 Abs. Baso 0.05 thou/cmm Normal 0.00-0.08 [facility] Comment on above: Performed By: #### L SHCG #### [facility] [address] [place], [place] [address] Abs. [place] 0.63 thou/cmm Normal 0.20-1.00 [facility] Comment on above: Performed By: #### L SHCG #### [facility] [address] [place] [address] Abs. Neut (ANC) 8.64 thou/cmm High 3.00-5.67 [facility] Comment on above: Performed By: #### L SHCG #### [place] [address] Basophils/100 WBC (Bld) 0.4 % Normal [facility] Comment on above: Performed By: #### L SHCG #### [place] [address] Eosinophils (Bld) [#/Vol] 0.16 thou/cmm Normal 0.00-0.41 [facility] Comment on above: Performed By: #### L SHCG #### [place] [address] Eosinophils/100 WBC (Bld) 1.4 % Normal [facility] Comment on above: Performed By: #### L SHCG #### [place] [address] Erythrocyte distribution width (RBC) [Ratio] 13.4 % Normal 11.5-15.9 [facility] Comment on above: Performed By: #### L SHCG #### [place] [address] Hematocrit (Bld) [Volume fraction] 49.1 % High 37.0-47.0 [facility] Comment on above: Performed By: #### L SHCG #### [place] [address] Hemoglobin (Bld) [Mass/Vol] 17.0 g/dL High 12.0-16.0 [facility] Comment on above: Performed By: #### L SHCG #### [facility] [address] [place], [place] [address] Lymphocytes (Bld) [#/Vol] 2.12 thou/cmm Normal 1.50-3.65 [facility] Comment on above: Performed By: #### L SHCG #### [facility] [address] [place], [place] [address] Lymphocytes/100 WBC (Bld) 18.3 % Normal [facility] Comment on above: Performed By: #### L SHCG #### [facility] [address] [place], [place] [address] MCH (RBC) [Entitic mass] 27.8 pg Normal 27.0-31.0 [facility] Comment on above: Performed By: #### L SHCG #### [facility] [address] [place], [place] [address] MCHC (RBC) [Mass/Vol] 34.6 % Normal 32.0-36.0 [facility] Comment on above: Performed By: #### L SHCG #### [facility] [address] [place], [place] [address] MCV (RBC) [Entitic vol] 80.4 fL Low 81.0-99.0 [facility] Comment on above: Performed By: #### L SHCG #### [address] [address] Monocytes/100 WBC (Bld) 5.4 % Normal [facility] Comment on above: Performed By: #### L SHCG #### [facility] [address] [place], [place] [address] Platelet mean volume (Bld) [Entitic vol] 10.2 fL Normal 7.1-10.5 [facility] Comment on above: Performed By: #### L SHCG #### [facility] [address] [place], [place] [address] Platelets (Bld) [#/Vol] 209 thou/cmm Normal 150-400 [facility] Comment on above: Performed By: #### L SHCG #### [facility] [address] [place], [place] [address] RBC (Bld) [#/Vol] 6.11 mil/cmm High 4.20-5.40 [facility] Comment on above: Performed By: #### L SHCG #### [facility] [address] [place] [address] Seg Neutrophil 74.5 % Normal [facility] Comment on above: Performed By: #### L SHCG #### [facility] [address] [place] [address] WBC (Bld) [#/Vol] 11.6 thou/cmm High 4.8-10.8 [facility] Comment on above: Performed By: #### L SHCG #### [place] [address] MDRD eGFRon 07-31-2018 GFR/1.73 sq M predicted among non-blacks MDRD (S/P/Bld) [Vol rate/Area] mL/min/{1.73_m2} Normal >60mL/min/ 1.73m2 [facility] Comment on above: Result Comment: If t he patient is , multiply the result by 1.210. Performed By: #### L MCBD #### [place] [address] Rapid Influenza A/Bon 2018 Rapid Influenza A/B See below Normal Negative [facility] Comment on above: Result Comment: Nega tive for influenza A and B. Performed By: #### L MCBD #### [place] [address] Urinalysis Routineon 019 Appearance (U) CLEAR Normal [facility] Comment on above: Performed By: #### L MCBD #### [place] [address] Bilirubin Urine Negative Normal Negative [facility] Comment on above: Performed By: #### L MCBD #### [place] [address] Color (U) YELLOW Normal [facility] Comment on above: Performed By: #### L MCBD #### [address], [place] [address] Ep Cells Urine 2-5 Normal 0-5 [facility] Comment on above: Performed By: #### L MCBD #### [facility] [address] [place] [address] Glucose Ql (U) 2+ Abnormal Negative [facility] Comment on above: Performed By: #### L MCBD #### [facility] [address] [place] [address] Hemoglobin,Urine Negative Normal Negative [facility] Comment on above: Performed By: #### L MCBD #### [facility] [address] [place] [address] Ketone Urine Negative Normal Negative [facility] Comment on above: Performed By: #### L MCBD #### [facility] [address] [place] [address] Leukocytes Esterase Negative Normal Negative [facility] Comment on above: Performed By: #### L MCBD #### [facility] [address] [place] [address] Nitrites Urine Negative Normal Negative [facility] Comment on above: Performed By: #### L MCBD #### [place] [address] pH (U) 6.0 [pH] Normal 5.0-8.0 [facility] Comment on above: Performed By: #### L MCBD #### [facility] [address] [place] [address] Protein (U) [Mass/Vol] TRACE Abnormal Negative [facility] Comment on above: Performed By: #### L MCBD #### [facility] [address] [place] [address] RBC LM.HPF (Urine sed) [#/Area] 0-3 Normal 0-3 [facility] Comment on above: Performed By: #### L MCBD #### [facility] [address] [place] [address] Specific [place], Ur 1.015 Normal 1.005-1 .03 0 [facility] Comment on above: Performed By: #### L MCBD #### [address] [address] Urobilinogen,Ur 0.2 EU/dL Normal 0.0-1.0 [facility] Comment on above: Performed By: #### L MCBD #### [facility] [address] [place] [address] WBC LM.HPF (Urine sed) [#/Area] 0-2 Normal 0-5 [facility] Comment on above: Performed By: #### L MCBD #### [place] [address] CASE MANAGEMon 07-21-2018 CASE MANAGEM HNO ID: [id number] Author: Jameson Sanders (Lisw) Service: (none) Author Type: Product Safety And Standards Engineer Type: Care Mgt Progress Note Filed: 07/21/2018 [...] CONTACT RESOURCES: NARCISA provided financial resources for [facility]. The pt plans to follow up with [facility] for anxiety and depression. NARCISA [facility] for [facility] and they will contact the pt tomorrow. SIGNATURE: NARCISA [facility] PATIENT NAME: Trenton Jackson DATE: July 21, 2018 TIME: 1:10 PM PAGER/CONTACT #: [phone] [facility] 2018 CASE MGT INIT [facility] HNO ID: [id number] Author: Jameson Sanders (Lisw) Service: (none) Author Type: Product Safety And Standards Engineer Type: Care Mgt Initial Assessment Filed: 07/21/2018 1:09 PM Note Text: CARE MANAGEMENT: ASSESSMENT AND DISCHARGE PLAN SERVICE DATE: 07/21/2018 SERVICE TIME: 12:00 PM PRIMARY CARE PHYSICIAN: Uziel Conteh MD - Pt confirmed and is agreeable to [facility] scheduling a f/u apt. BLISTER RUST ERADICATOR sent a task. ADMISSION STATUS: Observation Needs Prior to Discharge: Ready for Discharge MEDICAL: Patient/Supervisor Receiving And Processing Stated Goals: To return home to life as it was Health Insurance: [employer] [place] MEDICAID None Health Issues Impacting Discharge Plan: Newly diagnosed Chest Pain and Chronic CAD, uncontrolled diabetes, anxiety Last Admission Date: Previous admit date: 06/08/2018 Is this Within the Past 30 days? 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 No SOCIAL: Living Arrangement: Home Lives With: Spouse and children Financial Resources: Unemployed Primary Contact: Extended Emergency Contact Information Primary Emergency Contact: Curry Jackson Jr Address: [address] [facility] [address] [place] [address] [facility] Mobile Relation: Spouse Secondary Emergency Contact: Rebecca Dueñas Address: [place] [address] [facility] Relation: Mother Supportive: Yes Other [...] 0 I feel financially burdened by my mre-cz-henngs expenses for my prescription medication: Disagree completely [...] Home Psych Facility/Counseling [facility] NARCISA met with the pt at bedside [...] did provide a list of resources for Sand 9. The pt has been active with [facility] in the past for anxiety and depression and plans to make another appointment as she has been struggling again. SIGNATURE: NARCISA Cox [facility] PATIENT NAME: Trenton Jackson DATE: July 21, 2018 TIME: 1:00 PM PAGER/CONTACT #: [phone] [facility] Letter Text July 21, 2018 Trenton Jackson [address] [place] [id number] Dear Ms. Jackson, The nurses and staff of [facility] hope this letter finds you feeling [...] free to contact me, Bety Alcaraz RN ([phone]) or email me at, [email or web address] Additionally, you will receive a survey in [...] participation and thank you for choosing the [facility] for your health needs. Sincerely, Nurse Professor Of Legal Studies: Bety Alcaraz RN ([phone]) [facility] Unit: 3 Observation Letter Text July 22, 2018 Department of Hospital Medicine [address] [place] [address] Re: Trenton Jackson Dear Dr. Conteh: A patient of your practice, Trenton Jackson (: 1970) was treated at [facility] under the care of the [facility] Department of Hospital Medicine, and discharged on 07/21/2018. A transcribed discharge summary should be forthcoming promptly. If you need additional information or assistance, you may contact the Department of Hospital Medicine at [phone] during regular business hours, and we?ll be happy to assist you. Best Regards, Juancarlos Ann Normal [facility] CARRIEDSon 07-21-2018 [facility] HNO ID: [id number] Author: Magda Molina) [place] Service: Hospital Medicine Author Type: Nurse Practitioner Type: Discharge Summaries Filed: 07/21/2018 11:41 AM Note Text: ----- Attestation signed by Lei Roman at 07/21/2018 12:09 PM [facility] STAFF PHYSICIAN NOTE OF PERSONAL INVOLVEMENT IN CARE I have reviewed the documentation obtained and documented by the team healthcare provider (medical student, fellow, resident, nurse practitioner or physician psychological assistant) and I personally participated in the jones components. I have discussed the case and management of the patient's care. Lei Roman MD Hospital Medicine Staff PAGER: [phone] DATE of Service: 07/21/2018 TIME of Service: [...] provider in one week and with primary director of knowledge management as scheduled. We discussed increasing dose of [...] mild, abuse Frailty Coronary artery disease involving [place] coronary artery of [place] heart without angina pectoris Resolved Problems: * [...] to call for appointment?: Yes Uziel Conteh [phone] [place] [address] PCP Requested Referral Additional Provider to Provider [...] called for EMS to take her to [place] ED around 7 am. Patient was recommended to go to a hospital with PCI capacity but the patient declined and said [facility] only. Initial work up in the ED [...] 07/20/2018 - Present Coronary artery disease involving [place] coronary artery of [place] heart without angina pectoris 07/21/2018 - Present [...] results. FOLLOW-UP APPOINTMENTS ALREADY SCHEDULED WITH A [facility] PROVIDER: No future appointments. ALLERGIES Allergen [...] minutes SIGNATURE: Magda Truong APRN.CNP PAGER/CONTACT #: [phone] DATE: July 21, 2018 TIME: 11:38 AM [facility] CONSULTon 07-21-2018 CONSULT HNO ID: [id number] Author: Torito Foley Service: Cardiovascular Disease Author [...] including tobacco use. The patient presented to [place] emergency room with a complaint of a [...] appointments with prior cardiologists. Torito Foley MD, [facility] Nichelle and Yuliya Richards Department of Cardiovascular Medicine Heart and Vascular [facility] Office [facility]/ [address], [address] [place] [address] Tel. [phone] SIGNATURE: Torito Foley MD PATIENT NAME: Trenton Jackson DATE: July 21, 2018 TIME: 8:51 AM PAGER/CONTACT #: [phone] Normal [facility] Lipaseon 07-21-2018 Lipase enzyme act/vol 21 U/L Normal [facility] Comment on above: Performed By: #### L IPA ####[facility] [address] [place], [place] [phone] NURSING PROGon 07-21-2018 Protein mass conc HNO ID: [id number] Author: Dayanara (Rn) CHAYITO Alexander Service: (none) Author Type: Registered Nurse Type: Nursing Progress Note Filed: 07/21/2018 1:30 PM Note Text: Nursing Progress Note Patient Name: Trenton Jackson Patient Location: [place] [id number] Daily Note: 0745 RN assumed care of [...] note was completed by: Dayanara Alexander RN [facility] Protein mass conc HNO ID: [id number] Author: Katrina (Rn) CHAYITO Patrick Service: (none) Author Type: Registered Nurse Type: Nursing Progress Note Filed: 07/21/2018 6:50 AM Note Text: Nursing Progress Note Patient Name: Trenton Jackson Patient Location: [id number] Daily Note: 1940: patient observed in bed [...] note was completed by: Katrina Patrick RN [facility] PROGRESSon 07-21-2018 Protein mass conc HNO ID: [id number] Author: Ghassan Logan Service: General Internal Medicine [...] Logan MD July 21, 2018 6:51 AM [facility] Troponin Ton 07-21-2018 Troponin T.cardiac mass conc ug/L Normal 0.000-0.02 9 [facility] Comment on above: Performed By: #### T NT ####[facility] [address] [place] [phone] Basic Panelon 07-20-2018 Anion gap [Moles/Vol] 17 mmol/L Normal 8-20 [facility] Comment on above: Performed By: #### L SHCG #### [address] [address] Chloride [Moles/Vol] 95 mmol/L Low 98-109 [facility] Comment on above: Result Comment: Test ing performed on an reeplay.it i-STAT. Performed By: #### L SHCG #### [address] [address] Sodium [Moles/Vol] 135 mmol/L Low 138-146 [facility] Comment on above: Result Comment: Test ing performed on an reeplay.it i-STAT. Performed By: #### L SHCG #### [facility] [address] [place], [place] [address] Calcium [Mass/Vol] 9.4 mg/dL Normal 8.5-10.1 [facility] Comment on above: Performed By: #### L SHCG #### [facility] [address] [place], [place] [address] CO2 Blood 27 mEq/L Normal 21-32 [facility] Comment on above: Performed By: #### L SHCG #### [address] [address] Creatinine [Mass/Vol] 0.54 mg/dL Normal 0.51-0.95 [facility] Comment on above: Performed By: #### L SHCG #### [address] [address] Glucose [Mass/Vol] 400 mg/dL High 70-99 [facility] Comment on above: Performed By: #### L SHCG #### [facility] [address] [place], [place] [address] Urea nitrogen [Mass/Vol] 5 mg/dL Low 7-25 [facility] Comment on above: Performed By: #### L SHCG #### [address] [address] Urea nitrogen/Creatinine [Mass ratio] 9 mg/mg Low 10-20 [facility] Comment on above: Performed By: #### L SHCG #### [facility] [address] [place], [place] [address] CBCon 07-20-2018 Erythrocyte distribution width Ratio (RBC) 13.3 % Normal 11.5-15.0 [facility] Comment on above: Performed By: #### C BC ####[facility] [address] [place] [phone] Hematocrit Volume Fraction (Bld) 48.4 % High 36.0-46.0 [facility] Comment on above: Performed By: #### C BC ####[facility] [address] [place] [address] Hemoglobin mass conc (Bld) 16.7 g/dL High 11.5-15.5 [facility] Comment on above: Performed By: #### C BC ####[facility] [address] [place] [address] MCH Entitic mass (RBC) 27.4 pG Normal 26.0-34.0 [facility] Comment on above: Performed By: #### C BC ####[facility] [address] [place] [address] MCHC mass conc (RBC) 34.5 g/dL Normal 30.5-36.0 [facility] Comment on above: Performed By: #### C BC ####[facility] [address] [place] [address] MCV Entitic volume (RBC) 79.3 fL Low 80.0-100.0 [facility] Comment on above: Performed By: #### C BC ####[facility] [address] [place] [address] Platelet mean volume Entitic volume (Bld) 10.1 fL Normal 9.0-12.7 [facility] Comment on above: Performed By: #### C BC ####[facility] [address] [place] [address] Platelets #/vol (Bld) 242 10*3/uL Normal 150-400 [facility] Comment on above: Performed By: #### C BC ####[facility] [address] [place] [address] RBC #/vol (Bld) 6.10 10*6/uL High 3.90-5.20 [facility] Comment on above: Performed By: #### C BC ####[facility] [address] [place] [address] WBC #/vol (Bld) 11.50 10*3/uL High 3.70-11.00 [facility] Comment on above: Performed By: #### C BC ####[facility] [address] [place] [address] D-Dimer Quantitativeon 07-20 D-Dimer Quantitative 224 ng/mL(FEU) Normal <450 [facility] Comment on above: Result Comment: The D-Dimer [...] >=38.9%. Performed By: #### L SHCG #### [address] [address] ECG COMPLETEon 07-20-2018 ECG COMPLETE NAME : SSUI JACKSON PID : [id number] : 1970 Gender : Female Race : ORD : [id number] Procedure Date : Jul 20 2018 17:43:40 Edit Date : Jul 22 2018 11:17:53 Diagnosis:SINUS TACHYCARDIA LEFT AXIS DEVIATION SEPTAL INFARCT (CITED ON OR BEFORE 30-NOV-2017) ABNORMAL ECG WHEN COMPARED WITH ECG OF 14-DEC-2017 14:52, QUESTIONABLE CHANGE IN INITIAL FORCES OF ANTERIOR LEADS Confirmed by MD DEVORAH, ALVIN ([id number]) on 07/22/2018 11:17:50 AM Ventricular Rate : 122 BPM Atrial Rate : 122 BPM P-R Interval : 144 ms QRS Duration : 96 ms Q-T Interval : 336 ms QTC Calculation(Bezet) : 478 ms P [place] : 48 degrees R [place] : -61 degrees T [place] : 65 degrees Test Reason : Chest Pain Location : 15 : 3V 323.1 Overread By : MD DEVORAH,ALVIN Edited By : MD FAIRCHILD QARAB Referred By : ZOHREH HARRINGTON Acquired by : [id number], Normal [facility] Glucose Meteron 07-20-2018 Glucose [Mass/Vol] 330 mg/dL High 70-99 [facility] Comment on above: Result Comment: MD Flores OTIFIED Testing performed at [place] [id number] Performed By: #### L SHCG #### [place] [address] HISTORY PHYSICALon 9 HISTORY PHYSICAL HNO ID: [id number] Author: Ghassan Logan Service: General Internal Medicine [...] patient directed ED to only come to [facility] despite counseling by day physicians that we [...] h/o ischemic cardiomyopathy, LAD 80% stenosis on [facility] in December 2017, Cardiology at main [...] called for EMS to take her to [facility] ED around 7 am. Patient htne was recommended to go to a hospital with PCI capacity but the patient declined and said [facility] only. Of note the patient has had [...] 2017. PCP is Uziel Conteh MD in [place]. Patient lives in [place]. Review of the Systems: (positives in bold) [...] 5. The patient will be transferred to [facility] for assessment of myocardial viability and consideration [...] July 20, 2018 Time: 4:18 PM [facility] Hemoglobin A1con 07-20-2018 Hemoglobin A1c/Hemoglobin.total mass fraction (Bld) 275 mg/dL [facility] Comment on above: Result Comment: eAG: (Estimated average glucose) is a calculated value from HgbA1c and is small business sales representative of the average blood glucose level in the last 2-3 month period. Performed By: #### H BA1C ####[facility] [place], [place] [phone] Hemoglobin A1c/Hemoglobin.total mass fraction (Bld) 11.2 % High 4.3-5.6 [facility] Comment on above: Result Comment: Amer [place] Diabetes Association guidelines indicate that patients with HgbA1c in the range 5.7-6.4% are at increased risk for development of diabetes, and intervention by lifestyle modification may be beneficial. HgbA1c greater or equal to 6.5% is considered diagnostic of diabetes. Performed By: #### H BA1C ####[facility] [place], [place] [phone] Hemogram/Diffon 07-20-2018 Abs. Baso 0.06 thou/cmm Normal 0.00-0.08 [facility] Comment on above: Performed By: #### L SHCG #### [facility] [address] [place] [address] Abs. Carroll 0.45 thou/cmm Normal 0.20-1.00 [facility] Comment on above: Performed By: #### L SHCG #### [facility] [address] [place] [address] Abs. Neut (ANC) 7.40 thou/cmm High 3.00-5.67 [facility] Comment on above: Performed By: #### L SHCG #### [facility] [address] [place] [address] Basophils/100 WBC (Bld) 0.6 % Normal [facility] Comment on above: Performed By: #### L SHCG #### [facility] [address] [place] [address] Eosinophils (Bld) [#/Vol] 0.06 thou/cmm Normal 0.00-0.41 [facility] Comment on above: Performed By: #### L SHCG #### [place] [address] Eosinophils/100 WBC (Bld) 0.6 % Normal [facility] Comment on above: Performed By: #### L SHCG #### [facility] [address] [place] [address] Erythrocyte distribution width (RBC) [Ratio] 13.3 % Normal 11.5-15.9 [facility] Comment on above: Performed By: #### L SHCG #### [facility] [address] [place] [address] Hematocrit (Bld) [Volume fraction] 49.9 % High 37.0-47.0 [facility] Comment on above: Performed By: #### L SHCG #### [facility] [address] [place] [address] Hemoglobin (Bld) [Mass/Vol] 17.3 g/dL High 12.0-16.0 [facility] Comment on above: Performed By: #### L SHCG #### [place] [address] Lymphocytes (Bld) [#/Vol] 1.53 thou/cmm Normal 1.50-3.65 [facility] Comment on above: Performed By: #### L SHCG #### [facility] [address] [place], [place] [address] Lymphocytes/100 WBC (Bld) 16.1 % Normal [facility] Comment on above: Performed By: #### L SHCG #### [facility] [address] [place] [address] MCH (RBC) [Entitic mass] 27.7 pg Normal 27.0-31.0 [facility] Comment on above: Performed By: #### L SHCG #### [facility] [address] [place] [address] MCHC (RBC) [Mass/Vol] 34.7 % Normal 32.0-36.0 [facility] Comment on above: Performed By: #### L SHCG #### [facility] [address] [place] [address] MCV (RBC) [Entitic vol] 80.0 fL Low 81.0-99.0 [facility] Comment on above: Performed By: #### L SHCG #### [place] [address] Monocytes/100 WBC (Bld) 4.7 % Normal [facility] Comment on above: Performed By: #### L SHCG #### [place] [address] Platelet mean volume (Bld) [Entitic vol] 9.9 fL Normal 7.1-10.5 [facility] Comment on above: Performed By: #### L SHCG #### [facility] [address] [place], [place] [address] Platelets (Bld) [#/Vol] 209 thou/cmm Normal 150-400 [facility] Comment on above: Performed By: #### L SHCG #### [place] [address] RBC (Bld) [#/Vol] 6.24 mil/cmm High 4.20-5.40 [facility] Comment on above: Performed By: #### L SHCG #### [facility] [address] [place] [phone] Seg Neutrophil 78.0 % Normal [facility] Comment on above: Performed By: #### L SHCG #### [facility] [address] [place], [place] [address] WBC (Bld) [#/Vol] 9.5 thou/cmm Normal 4.8-10.8 [facility] Comment on above: Performed By: #### L SHCG #### [facility] [address] [place] [phone] Ketoneson 07-20-2018 Ketones Ql (U) Negative Normal Negative [facility] Comment on above: Performed By: #### L SHCG #### [facility] [address] [place] [address] MDRD eGFRon 07-20-2018 GFR/1.73 sq M predicted among non-blacks MDRD (S/P/Bld) [Vol rate/Area] mL/min/{1.73_m2} Normal >60mL/min/ 1.73m2 [facility] Comment on above: Result Comment: If t he patient is , multiply the result by 1.210. Performed By: #### L SHCG #### [facility] [address] [place] [phone] NURSING PROGon 07-20-2018 Protein mass conc HNO ID: [id number] Author: Dayanara (Rn) CHAYITO Alexander Service: (none) Author Type: Registered Nurse Type: Nursing Progress Note Filed: 07/20/2018 5:58 PM Note Text: Nursing Progress Note Patient Name: Trenton Jackson Patient [facility] [id number] Daily Note: 1550 Patient arrived to unit [...] was completed by: Dayanara Alexander RN Normal [facility] Renal Function Panelon 07-20 Albumin mass conc 3.7 g/dL Low 3.9-4.9 [facility] Comment on above: Performed By: #### R FP ####[facility] [address] [place] [address] Anion gap molar conc 8 mmol/L Low 9-18 [facility] Comment on above: Performed By: #### R FP ####[place] [address] Calcium mass conc 8.7 mg/dL Normal 8.5-10.2 [facility] Comment on above: Performed By: #### R FP ####[facility] [address] [place] [address] Chloride molar conc 100 mmol/L Normal 97-105 [facility] Comment on above: Performed By: #### R FP ####[place] [address] CO2 molar conc 25 mmol/L Normal 22-30 [facility] Comment on above: Performed By: #### R FP ####[facility] [address] [place] [address] Creatinine mass conc 0.50 mg/dL Low 0.58-0.96 [facility] Comment on above: Performed By: #### R FP ####[facility] [address] [place] [address] eGFR- Amer. >60 Normal [facility] Comment on above: Performed By: #### R FP ####[facility] [address] [place] [address] GFR/1.73 sq M predicted among non-blacks MDRD vol rate/area (S/P/Bld) mL/min/{1.73_m2} Normal [facility] Comment on above: Result Comment: eGFR [...] actual GFR. Performed By: #### R FP ####[facility] [address] [place] [address] Glucose mass conc 247 mg/dL High 74-99 [facility] Comment on above: Result Comment: The [place] Diabetes Association (ADA) provides guidance for cutoff [...] Standards of Medical Care in Diabetes 2016, [place] Diabetes Association. Diabetes Care. 2016.39(Suppl 1). Performed By: #### R FP ####[facility] [address] Phosphate mass conc 2.9 mg/dL Normal 2.7-4.8 [facility] Comment on above: Performed By: #### R FP ####[facility] [address]ds[address] Potassium molar conc 4.2 mmol/L Normal 3.5-4.9 [facility] Comment on above: Performed By: #### R FP ####[facility] [address] [place] [address] Result Comment: Test ing performed on an reeplay.it i-STAT. Performed By: #### L SHCG #### [facility] [address] [place] [address] Sodium molar conc 133 mmol/L Low 136-144 [facility] Comment on above: Performed By: #### R FP ####[facility] [address] [place] [phone] Urea nitrogen mass conc 5 mg/dL Low 7-21 [facility] Comment on above: Performed By: #### R FP ####[facility] [address]721[address]160 Troponin Ion 07-20-2018 Troponin I.cardiac [Mass/Vol] ng/mL Normal <=0.07 [facility] Comment on above: Performed By: #### L SHCG #### [facility] [address] [place], [place] [address] Troponin Ton 07-20-2018 Troponin T.cardiac mass conc ug/L Normal 0.000-0.02 9 [facility] Comment on above: Performed By: #### T NT ####[facility] [address] [place] [phone] CT ABDOMEN AND PELVIS WITH C ONTRASTon [...] Multiple chronic findings as detailed above. Normal [facility] Comprehensive Panelon 2018 Albumin [Mass/Vol] 3.9 g/dL Normal 3.4-5.0 [facility] Comment on above: Performed By: #### L ACET #### [place] [address] ALP [Catalytic activity/Vol] 118 U/L High 46-116 [facility] Comment on above: Performed By: #### L ACET #### [place] [address] ALT-SGPT Blood 18 U/L Normal 14-63 [facility] Comment on above: Performed By: #### L ACET #### [address] [address] Anion gap [Moles/Vol] 18 mmol/L Normal 8-20 [facility] Comment on above: Performed By: #### L ACET #### [facility] [address] [place], [place] [address] AST-SGOT Blood 19 U/L Normal 15-37 [facility] Comment on above: Performed By: #### L ACET #### [facility] [address] [place], [place] [address] Bilirubin Ql (U) 1.5 mg/dL High 0.2-1.0 [facility] Comment on above: Performed By: #### L ACET #### [facility] [address] [place] [address] Calcium [Mass/Vol] 9.4 mg/dL Normal 8.5-10.1 [facility] Comment on above: Performed By: #### L ACET #### [facility] [address] [place] [address] Chloride [Moles/Vol] 93 mmol/L Low 98-107 [facility] Comment on above: Performed By: #### L ACET #### [facility] [address] [place] [address] CO2 Blood 25 mEq/L Normal 21-32 [facility] Comment on above: Performed By: #### L ACET #### [facility] [address] [place] [address] Creatinine [Mass/Vol] 0.64 mg/dL Normal 0.51-0.95 [facility] Comment on above: Performed By: #### L ACET #### [facility] [address] [place], [place] [address] Glucose [Mass/Vol] 443 mg/dL Critically high 70-99 [facility] Comment on above: Performed By: #### L ACET #### [facility] [address] [place], [place] [address] Potassium [Moles/Vol] 4.0 mmol/L Normal 3.5-5.1 [facility] Comment on above: Performed By: #### L ACET #### [place] [address] Protein [Mass/Vol] 8.0 g/dL Normal 6.4-8.2 [facility] Comment on above: Performed By: #### L ACET #### [facility] [address] [place] [address] Sodium [Moles/Vol] 132 mmol/L Low 136-145 [facility] Comment on above: Performed By: #### L ACET #### [facility] [address] [place] [address] Urea nitrogen [Mass/Vol] 8 mg/dL Normal 7-25 [facility] Comment on above: Performed By: #### L ACET #### [facility] [address] [place] [address] Urea nitrogen/Creatinine [Mass ratio] 13 mg/mg Normal 10-20 [facility] Comment on above: Performed By: #### L ACET #### [place] [address] Hemogram/Manual Diffon 06-26 Abs. Baso 0.00 thou/cmm Normal 0.00-0.08 [facility] Comment on above: Performed By: #### L ACET #### [place] [address] Abs. Eosin 0.00 thou/cmm Normal 0.00-0.41 [facility] Comment on above: Performed By: #### L ACET #### [place] [address] Abs. Lymph 2.58 thou/cmm Normal 1.50-3.65 [facility] Comment on above: Performed By: #### L ACET #### [place] [address] Abs. Carroll 0.78 thou/cmm Normal 0.20-1.00 [facility] Comment on above: Performed By: #### L ACET #### [place] [address] Abs. Neut (ANC) 7.84 thou/cmm High 3.00-5.67 [facility] Comment on above: Performed By: #### L ACET #### [place] [address] Basophil 0.0 % Normal [facility] Comment on above: Performed By: #### L ACET #### [facility] [address] [place] [address] Eosinophil 0.0 % Normal [facility] Comment on above: Performed By: #### L ACET #### [facility] [address] [place] [address] Lymphocyte 23.0 % Normal [facility] Comment on above: Performed By: #### L ACET #### [facility] [address] [place] [address] Monocyte 7.0 % Normal [facility] Comment on above: Performed By: #### L ACET #### [facility] [address] [place] [address] Platelets (Bld) [#/Vol] Normal Normal [facility] Comment on above: Performed By: #### L ACET #### [place] [address] RBC morphology finding Nom (Bld) Normal Normal [facility] Comment on above: Performed By: #### L ACET #### [place] [address] Seg Neutrophil 70.0 % Normal [facility] Comment on above: Performed By: #### L ACET #### [place] [address] Diff Type Manual Diff Normal [facility] Comment on above: Performed By: #### L ACET #### [place] [address] Erythrocyte distribution width (RBC) [Ratio] 13.1 % Normal 11.5-15.9 [facility] Comment on above: Performed By: #### L ACET #### [place] [address] Hematocrit (Bld) [Volume fraction] 49.0 % High 37.0-47.0 [facility] Comment on above: Performed By: #### L ACET #### [place] [address] Hemoglobin (Bld) [Mass/Vol] 16.9 g/dL High 12.0-16.0 [facility] Comment on above: Performed By: #### L ACET #### [facility] [address] [place] [address] MCH (RBC) [Entitic mass] 27.6 pg Normal 27.0-31.0 [facility] Comment on above: Performed By: #### L ACET #### [facility] [address] [place], [place] [address] MCHC (RBC) [Mass/Vol] 34.5 % Normal 32.0-36.0 [facility] Comment on above: Performed By: #### L ACET #### [facility] [address] [place] [address] MCV (RBC) [Entitic vol] 79.9 fl Low 81.0-99.0 [facility] Comment on above: Performed By: #### L ACET #### [facility] [address] [place] [address] Platelet mean volume (Bld) [Entitic vol] 9.9 fl Normal 7.1-10.5 [facility] Comment on above: Performed By: #### L ACET #### [facility] [address] [place] [address] Platelets (Bld) [#/Vol] 276 thou/cmm Normal 150-400 [facility] Comment on above: Performed By: #### L ACET #### [facility] [address] [place] [address] RBC (Bld) [#/Vol] 6.13 mil/cmm High 4.20-5.40 [facility] Comment on above: Performed By: #### L ACET #### [facility] [address] [place] [address] WBC (Bld) [#/Vol] 11.2 thou/cmm High 4.8-10.8 [facility] Comment on above: Performed By: #### L ACET #### [facility] [address] [place] [address] Ketoneson 06-26-2018 Ketones Ql (U) Negative Normal Negative [facility] Comment on above: Performed By: #### L SHCG #### [facility] [address] [place] [address] Lipase Bloodon 06-26-2018 Lipase Blood 161 U/L Normal 73-393 [facility] Comment on above: Performed By: #### L ACET #### [place] [address] MDRD eGFRon 06-26-2018 GFR/1.73 sq M predicted among non-blacks MDRD (S/P/Bld) [Vol rate/Area] mL/min/{1.73_m2} Normal >60mL/min/ 1.73m2 [facility] Comment on above: Result Comment: If t he patient is , multiply the result by 1.210. Performed By: #### L ACET #### [place] [address] Macroscopic Urinalysison Appearance (U) CLEAR Normal [facility] Comment on above: Performed By: #### L ACET #### [place] [address] Bilirubin Urine Negative Normal Negative [facility] Comment on above: Performed By: #### L ACET #### [place] [address] Color (U) YELLOW Normal [facility] Comment on above: Performed By: #### L ACET #### [place] [address] Glucose Ql (U) 3+ Abnormal Negative [facility] Comment on above: Performed By: #### L ACET #### [place] [address] Hemoglobin,Urine Negative Normal Negative [facility] Comment on above: Performed By: #### L ACET #### [place] [address] Ketone Urine Negative Normal Negative [facility] Comment on above: Performed By: #### L ACET #### [place] [address] Leukocytes Esterase Negative Normal Negative [facility] Comment on above: Performed By: #### L ACET #### [place] [address] Nitrites Urine Negative Normal Negative [facility] Comment on above: Performed By: #### L ACET #### [facility] [address] [place] [address] pH (U) 6.0 [pH] Normal 5.0-8.0 [facility] Comment on above: Performed By: #### L ACET #### [facility] [address] [place] [address] Protein (U) [Mass/Vol] Negative Normal Negative [facility] Comment on above: Performed By: #### L ACET #### [facility] [address] [place] [address] Specific [place], Ur 1.015 Normal 1.005-1 .03 0 [facility] Comment on above: Performed By: #### L ACET #### [facility] [address] [place] [address] Urobilinogen,Ur 0.2 EU/dL Normal 0.0-1.0 [facility] Comment on above: Performed By: #### L ACET #### [facility] [address] [place] [address] CASE MANAGEMon 06-12-2018 CASE MANAGEM HNO ID: [id number] Author: Rey Markham ([place]) Service: Care Management Author Type: Product Safety And Standards Engineer Type: Care Mgt Progress Note Filed: 06/12/2018 [...] discharge planning needs arise. SIGNATURE: Rey Markham PRODUCT MANAGEMENT MANAGER, MACHINE SETTER, [facility] PATIENT NAME: Trenton Jackson DATE: June 12, 2018 TIME: 3:21 PM PAGER/CONTACT #: Normal [facility] CBCon 06-12-2018 Erythrocyte distribution width Ratio (RBC) 13.1 % Normal 11.5-15.0 [facility] Comment on above: Performed By: #### C BC, CMP, MG1 ####[facility] [address] [place] [address] Hematocrit Volume Fraction (Bld) 39.0 % Normal 36.0-46.0 [facility] Comment on above: Performed By: #### C BC, CMP, MG1 ####[facility] [address] [place] [address] Hemoglobin mass conc (Bld) 13.0 g/dL Normal 11.5-15.5 [facility] Comment on above: Performed By: #### C BC, CMP, MG1 ####[facility] [address]keg[address] [place] [address] MCH Entitic mass (RBC) 27.5 pG Normal 26.0-34.0 [facility] Comment on above: Performed By: #### C BC, CMP, MG1 ####[facility] [address] [place] [address] MCHC mass conc (RBC) 33.3 g/dL Normal 30.5-36.0 [facility] Comment on above: Performed By: #### C BC, CMP, MG1 ####[facility] Ms[address]zz[address] [place] [address] MCV Entitic volume (RBC) 82.5 fL Normal 80.0-100.0 [facility] Comment on above: Performed By: #### C BC, CMP, MG1 ####[facility] [address] [place] [address] Platelet mean volume Entitic volume (Bld) 9.6 fL Normal 9.0-12.7 [facility] Comment on above: Performed By: #### C BC, CMP, MG1 ####[facility] [address] [place] [phone] Platelets #/vol (Bld) 202 10*3/uL Normal 150-400 [facility] Comment on above: Performed By: #### C BC, CMP, MG1 ####[facility] [address] [place] [phone] RBC #/vol (Bld) 4.73 10*6/uL Normal 3.90-5.20 [facility] Comment on above: Performed By: #### C BC, CMP, MG1 ####[facility] Lqasvjzspz4943 [address] WBC #/vol (Bld) 9.75 10*3/uL Normal 3.70-11.00 [facility] Comment on above: Performed By: #### C BC, CMP, MG1 ####[facility] [address] [place] [phone] CONSULT PROGon 06-12-2018 Protein mass conc HNO ID: [id number] Author: Jasvir Kumar Service: Gastroenterology Author Type: [...] ~6 weeks. Discussed importance of follow-up with finishing trimmer in network with her insurance. Patient seen [...] colon Bx: unavailable ? SIGNATURE: Prudence Edwards, SERVICER TRAVEL TRAILERS DATE: June 12, 2018 TIME: 10:40 AM Normal [facility] Comp Metabolic Panelon 06-12 Albumin mass conc 3.0 g/dL Low 3.9-4.9 [facility] Comment on above: Performed By: #### C BC, CMP, MG1 ####[facility] [address] [place] [address] ALP enzyme act/vol 80 U/L Normal 34-123 [facility] Comment on above: Performed By: #### C BC, CMP, MG1 ####[facility] [address] [place] [address] ALT enzyme act/vol 17 U/L Normal 7-38 [facility] Comment on above: Performed By: #### C BC, CMP, MG1 ####[facility] [address] [place] [address] Anion gap molar conc 8 mmol/L Low 9-18 [facility] Comment on above: Performed By: #### C BC, CMP, MG1 ####[facility] [address] [place] [address] AST enzyme act/vol 25 U/L Normal 13-35 [facility] Comment on above: Performed By: #### C BC, CMP, MG1 ####[facility] [address] [place] [address] Bilirubin mass conc 0.5 mg/dL Normal 0.2-1.3 [facility] Comment on above: Performed By: #### C BC, CMP, MG1 ####[facility] [address] [place] [address] Calcium mass conc 9.0 mg/dL Normal 8.5-10.2 [facility] Comment on above: Performed By: #### C BC, CMP, MG1 ####[facility] [address] [place] [address] Chloride molar conc 101 mmol/L Normal 97-105 [facility] Comment on above: Performed By: #### C BC, CMP, MG1 ####[facility] [address] [place] [address] CO2 molar conc 28 mmol/L Normal 22-30 [facility] Comment on above: Performed By: #### C BC, CMP, MG1 ####[facility] [address] [place] [phone] Creatinine mass conc 0.64 mg/dL Normal 0.58-0.96 [facility] Comment on above: Performed By: #### C DELIA WILSON, MG1 ####[facility] [address] [place] [phone] eGFR- Amer. >60 Normal [facility] Comment on above: Performed By: #### C DELIA WILSON, MG1 ####[facility] Ghksroflro9229 [address] GFR/1.73 sq M predicted among non-blacks MDRD vol rate/area (S/P/Bld) mL/min/{1.73_m2} Normal [facility] Comment on above: Result Comment: eGFR [...] Performed By: #### C DELIA WILSON, MG1 ####[facility] Lgkilbrahd3832 [address] Glucose mass conc 162 mg/dL High 74-99 [facility] Comment on above: Result Comment: The [place] [employer] (ADA) provides guidance for cutoff [...] Standards of Medical Care in Diabetes 2016, [place] [employer]. Diabetes Care. 2016.39(Suppl 1). Performed By: #### C KATIE CMP, MG1 ####[facility] [address] [place] [address] Potassium molar conc 4.2 mmol/L Normal 3.7-5.1 [facility] Comment on above: Performed By: #### C BC CMP, MG1 ####[facility] [address] [place] [address] Protein mass conc 5.6 g/dL Low 6.3-8.0 [facility] Comment on above: Performed By: #### C KATIE CMP, MG1 ####[facility] [address] [place] [address] Sodium molar conc 137 mmol/L Normal 136-144 [facility] Comment on above: Performed By: #### C KATIE CMP, MG1 ####[facility] [address] [place] [address] Urea nitrogen mass conc 5 mg/dL Low 7-21 [facility] Comment on above: Performed By: #### C KATIE CMP, MG1 ####[facility] [address] [place] [address] Magnesiumon 06-12-2018 Magnesium mass conc 1.6 mg/dL Low 1.7-2.3 [facility] Comment on above: Performed By: #### C KATIE CMP, MG1 ####[facility] [address] [place] [address] NURSING PROGon 06-12-2018 Protein mass conc HNO ID: [id number] Author: Bina (Rn) CHAYITO Montiel Service: (none) Author Type: Registered Nurse Type: Nursing Progress Note Filed: 06/12/2018 6:50 AM Note Text: Nursing Progress Note Patient Name: Trenton Jackson Patient Location: [facility]-[id number] Daily Note: Paged the hospital list regarding patient's magnesium level this AM. This note was completed by: Bina Montiel RN Normal [facility] CBCon 06-11-2018 Erythrocyte distribution width Ratio (RBC) 13.4 % Normal 11.5-15.0 [facility] Comment on above: Performed By: #### C BC CMP, MG1 ####[facility] [address] [place] [address] Hematocrit Volume Fraction (Bld) 45.8 % Normal 36.0-46.0 [facility] Comment on above: Performed By: #### C BC CMP, MG1 ####[facility] [address]tf[address] [place] [address] Hemoglobin mass conc (Bld) 15.4 g/dL Normal 11.5-15.5 [facility] Comment on above: Performed By: #### C KATIE CMP, MG1 ####[facility] [address]du[address] [place] [address] MCH Entitic mass (RBC) 27.5 pG Normal 26.0-34.0 [facility] Comment on above: Performed By: #### C BC CMP, MG1 ####[facility] [address]czo[address] [place] [address] MCHC mass conc (RBC) 33.6 g/dL Normal 30.5-36.0 [facility] Comment on above: Performed By: #### C BC CMP, MG1 ####[facility] [address] [place] [address] MCV Entitic volume (RBC) 81.8 fL Normal 80.0-100.0 [facility] Comment on above: Performed By: #### C BC CMP, MG1 ####[facility] [address] [place] [address] Platelet mean volume Entitic volume (Bld) 10.0 fL Normal 9.0-12.7 [facility] Comment on above: Performed By: #### C BC CMP, MG1 ####[facility] Q[address]jcgrb1109 [place] [phone] Platelets #/vol (Bld) 260 10*3/uL Normal 150-400 [facility] Comment on above: Performed By: #### Gideon BC CMP, MG1 ####[facility] [address] [place] [phone] RBC #/vol (Bld) 5.60 10*6/uL High 3.90-5.20 [facility] Comment on above: Performed By: #### C BC, CMP, MG1 ####[facility] [address] [place] [phone] WBC #/vol (Bld) 13.52 10*3/uL High 3.70-11.00 [facility] Comment on above: Performed By: #### C BC, CMP, MG1 ####[facility] [address] [place] [phone] CONSULT PROGon 06-11-2018 Protein mass conc HNO ID: [id number] Author: Jasvir Kumar Service: Gastroenterology Author Type: [...] descending colon Bx: unavailable SIGNATURE: Prudence Edwards, SERVICER TRAVEL TRAILERS DATE: June 11, 2018 TIME: 10:11 AM Normal [facility] Comp Metabolic Panelon 06-11 Albumin mass conc 3.4 g/dL Low 3.9-4.9 [facility] Comment on above: Performed By: #### C BC, CMP, MG1 ####[facility] [address] [place] [address] ALP enzyme act/vol 93 U/L Normal 34-123 [facility] Comment on above: Performed By: #### C BC, CMP, MG1 ####[facility] [address] [place] [address] ALT enzyme act/vol 18 U/L Normal 7-38 [facility] Comment on above: Performed By: #### C BC, CMP, MG1 ####[facility] [address] [place] [address] Anion gap molar conc 11 mmol/L Normal 9-18 [facility] Comment on above: Performed By: #### C BC, CMP, MG1 ####[facility] [address] [place] [address] AST enzyme act/vol 31 U/L Normal 13-35 [facility] Comment on above: Performed By: #### C BC, CMP, MG1 ####[facility] [address] [place] [address] Bilirubin mass conc 0.8 mg/dL Normal 0.2-1.3 [facility] Comment on above: Performed By: #### C BC, CMP, MG1 ####[facility] [address] [place] [address] Calcium mass conc 9.0 mg/dL Normal 8.5-10.2 [facility] Comment on above: Performed By: #### C BC, CMP, MG1 ####[facility] [address]xx[address]hn[address] [place] [address] Chloride molar conc 101 mmol/L Normal 97-105 [facility] Comment on above: Performed By: #### C BC, CMP, MG1 ####[facility] [address] [place] [address] CO2 molar conc 25 mmol/L Normal 22-30 [facility] Comment on above: Performed By: #### C BC, CMP, MG1 ####[facility] [address]xbm[address] [place] [address] Creatinine mass conc 0.61 mg/dL Normal 0.58-0.96 [facility] Comment on above: Performed By: #### C BC, CMP, MG1 ####[facility] [address] [place] [address] eGFR- Amer. >60 Normal [facility] Comment on above: Performed By: #### C BC CMP, MG1 ####[facility] [address]xwthi7[address] [place] [address] GFR/1.73 sq M predicted among non-blacks MDRD vol rate/area (S/P/Bld) mL/min/{1.73_m2} Normal [facility] Comment on above: Result Comment: eGFR [...] Performed By: #### C BC, CMP, MG1 ####[facility] [address] [place] [address] Glucose mass conc 123 mg/dL High 74-99 [facility] Comment on above: Result Comment: The [place] Diabetes Association (ADA) provides guidance for cutoff [...] Standards of Medical Care in Diabetes 2016, [place] [employer]. Diabetes Care. 2016.39(Suppl 1). Performed By: #### C BC CMP, MG1 ####[facility] [address] [place] [address] Potassium molar conc 3.9 mmol/L Normal 3.7-5.1 [facility] Comment on above: Performed By: #### C BC CMP, MG1 ####[facility] [address] [place] [address] Protein mass conc 6.5 g/dL Normal 6.3-8.0 [facility] Comment on above: Performed By: #### C BC CMP, MG1 ####[facility] [address] [place] [address] Sodium molar conc 137 mmol/L Normal 136-144 [facility] Comment on above: Performed By: #### C BC, CMP, MG1 ####[facility] [address] [place] [address] Urea nitrogen mass conc 5 mg/dL Low 7-21 [facility] Comment on above: Performed By: #### C BC CMP, MG1 ####[facility] [address] [place] [address] Magnesiumon 06-11-2018 Magnesium mass conc 1.8 mg/dL Normal 1.7-2.3 [facility] Comment on above: Performed By: #### C BC, CMP, MG1 ####[facility] [address] [place] [address] PROGRESSon 06-11-2018 Protein mass conc HNO ID: [id number] Author: Fredo Morrow Service: Hospital Medicine Author Type: Physician Type: Progress Notes Filed: 06/11/2018 1:58 PM Note Text: SERVICE DATE: 06/11/2018 SERVICE TIME: 1:58 PM HOSPITAL MEDICINE PROGRESS NOTE NIGHT AND WEEKEND COVERAGE: Nights: Please contact pager [phone]. HPI Patient is a 47 year old [...] 1615 vte non-pharmacologic prophylaxis - none indicated ([place]) 06/08/18 1615 activity - mobilize patient ([place], [place]) VTE Prophylaxis: VTE prophylaxis appropriate Plan of care discussed with: Patient SIGNATURE: Fredo Morrow MD PATIENT NAME: Trenton Jackson DATE: June 11, 2018 TIME: 1:58 PM PAGER/CONTACT #: [phone] Normal [facility] CBCon 06-10-2018 Erythrocyte distribution width Ratio (RBC) 13.1 % Normal 11.5-15.0 [facility] Comment on above: Performed By: #### C BC, CMP, MG1 ####[facility] [address] [place] [phone] Hematocrit Volume Fraction (Bld) 41.1 % Normal 36.0-46.0 [facility] Comment on above: Performed By: #### C BC, CMP, MG1 ####[facility] Hdiopjhcdu6565 [address] Hemoglobin mass conc (Bld) 13.4 g/dL Normal 11.5-15.5 [facility] Comment on above: Performed By: #### C BC, CMP, MG1 ####[facility] Prlkhuujlg1677 [address] MCH Entitic mass (RBC) 26.9 pG Normal 26.0-34.0 [facility] Comment on above: Performed By: #### C BC, CMP, MG1 ####[facility] [address]rybx4[address] [place] [address] MCHC mass conc (RBC) 32.6 g/dL Normal 30.5-36.0 [facility] Comment on above: Performed By: #### C BC, CMP, MG1 ####[facility] [address]rhldx7715 [place] [address] MCV Entitic volume (RBC) 82.4 fL Normal 80.0-100.0 [facility] Comment on above: Performed By: #### C BC, CMP, MG1 ####[facility] [address]wex35[address] [place] [address] Platelet mean volume Entitic volume (Bld) 10.0 fL Normal 9.0-12.7 [facility] Comment on above: Performed By: #### C BC, CMP, MG1 ####[facility] Rfqtlrtesz5464 [address] Platelets #/vol (Bld) 202 10*3/uL Normal 150-400 [facility] Comment on above: Performed By: #### C BC, CMP, MG1 ####[facility] [address]ribpg[address] [place] [address] RBC #/vol (Bld) 4.99 10*6/uL Normal 3.90-5.20 [facility] Comment on above: Performed By: #### C BC, CMP, MG1 ####[facility] [address]rafu[address] [place] [address] WBC #/vol (Bld) 10.93 10*3/uL Normal 3.70-11.00 [facility] Comment on above: Performed By: #### C BC, CMP, MG1 ####[facility] [address] [place] [phone] CONSULT PROGon 06-10-2018 Protein mass conc HNO ID: [id number] Author: Jasvir Kumar Service: Gastroenterology Author Type: [...] never undergone endoscopic evaluation SIGNATURE: Griselda Chaparro APRN.GAME DEVELOPER DATE: June 10, 2018 TIME: 12:53 PM Normal [facility] Comp Metabolic Panelon 06-10 Albumin mass conc 3.0 g/dL Low 3.9-4.9 [facility] Comment on above: Performed By: #### C BC, CMP, MG1 ####[facility] [address] [place] [address] ALP enzyme act/vol 76 U/L Normal 34-123 [facility] Comment on above: Performed By: #### C BC, CMP, MG1 ####[facility] [address] [place] [address] ALT enzyme act/vol 11 U/L Normal 7-38 [facility] Comment on above: Performed By: #### C BC, CMP, MG1 ####[facility] [address] [place] [address] Anion gap molar conc 8 mmol/L Low 9-18 [facility] Comment on above: Performed By: #### C BC, CMP, MG1 ####[facility] [address] [place] [address] AST enzyme act/vol 16 U/L Normal 13-35 [facility] Comment on above: Performed By: #### C BC, CMP, MG1 ####[facility] [address] [place] [address] Bilirubin mass conc 0.6 mg/dL Normal 0.2-1.3 [facility] Comment on above: Performed By: #### C BC, CMP, MG1 ####[facility] [address] [place] [address] Calcium mass conc 8.8 mg/dL Normal 8.5-10.2 [facility] Comment on above: Performed By: #### C BC, CMP, MG1 ####[facility] [address] [place] [address] Chloride molar conc 102 mmol/L Normal 97-105 [facility] [facility] Comment on above: Performed By: #### C BC, CMP, MG1 ####[facility] [address] [place] [address] CO2 molar conc 28 mmol/L Normal 22-30 [facility] Comment on above: Performed By: #### C BC, CMP, MG1 ####[facility] [address] [place] [phone] Creatinine mass conc 0.62 mg/dL Normal 0.58-0.96 [facility] Comment on above: Performed By: #### C DELIA WILSON, MG1 ####[facility] Ajfmuvcfbi9175 [phone] eGFR- Amer. >60 Normal [facility] Comment on above: Performed By: #### C DELIA WILSON, MG1 ####[facility] Xytztalpkb8980 [address] GFR/1.73 sq M predicted among non-blacks MDRD vol rate/area (S/P/Bld) mL/min/{1.73_m2} Normal [facility] Comment on above: Result Comment: eGFR [...] Performed By: #### C DELIA WILSON, MG1 ####[facility] Azywjcnlax9360 [address] Glucose mass conc 142 mg/dL High 74-99 [facility] Comment on above: Result Comment: The [place] Diabetes Association (ADA) provides guidance for cutoff [...] Standards of Medical Care in Diabetes 2016, [place] [employer]. Diabetes Care. 2016.39(Suppl 1). Performed By: #### C BC, CMP, MG1 ####[facility] [address] [place] [address] Potassium molar conc 3.4 mmol/L Low 3.7-5.1 [facility] Comment on above: Performed By: #### C BC, CMP, MG1 ####[facility] [address] [place] [address] Protein mass conc 5.5 g/dL Low 6.3-8.0 [facility] Comment on above: Performed By: #### C BC, CMP, MG1 ####[facility] [address] [place] [address] Sodium molar conc 138 mmol/L Normal 136-144 [facility] Comment on above: Performed By: #### C BC, CMP, MG1 ####[facility] [address] [place] [address] Urea nitrogen mass conc 6 mg/dL Low 7-21 [facility] Comment on above: Performed By: #### C BC, CMP, MG1 ####[facility] [address] [place] [address] Magnesiumon 06-10-2018 Magnesium mass conc 1.8 mg/dL Normal 1.7-2.3 [facility] Comment on above: Performed By: #### C BC, CMP, MG1 ####[facility] [address] [place] [address] PROGRESSon 06-10-2018 Protein mass conc HNO ID: [id number] Author: Fredo Morrow Service: Hospital Medicine Author Type: Physician Type: Progress Notes Filed: 06/10/2018 4:22 PM Note Text: SERVICE DATE: 06/10/2018 SERVICE TIME: 4:22 PM HOSPITAL MEDICINE PROGRESS NOTE NIGHT AND WEEKEND COVERAGE: Nights: Please contact pager [phone]. HPI Patient is a 47 year old [...] (fl,oh) 06/08/18 1615 activity - mobilize patient (nv,oh) VTE Prophylaxis: VTE prophylaxis appropriate Plan of care discussed with: Patient SIGNATURE: Fredo Morrow MD PATIENT NAME: Trenton Jackson DATE: June 10, 2018 TIME: 4:22 PM PAGER/CONTACT #: [phone] [facility] CASE MGT INIT Ana 2018 CASE MGT INIT GAVIN HNO ID: [id number] Author: Donna AgudeloRn) CHAYITO Gupta Service: Case Management Author Type: Registered Nurse Type: Care Mgt Initial Assessment Filed: 06/09/2018 4:47 PM Note Text: CARE MANAGEMENT: ASSESSMENT AND DISCHARGE PLAN SERVICE DATE: 06/09/2018 SERVICE TIME: 4:45 PM PRIMARY CARE PHYSICIAN: Uziel Conteh MD - Confirmed with the patient ADMISSION STATUS: Observation Needs Prior to Discharge: To Be Determined 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 No SOCIAL: Living Arrangement: Home Lives With: Spouse Financial Resources: N/A Primary Contact: Extended Emergency Contact Information Primary Emergency Contact: Curry Jackson Jr Address: [address] [place] [id number] [facility] Mobile Relation: Spouse Secondary Emergency Contact: Rebecca Dueñas Address: [place] [address] [facility] Relation: Mother Supportive: Yes Other Important [...] 0 I feel financially burdened by my uun-ny-kwqudh expenses for my prescription medication: Disagree completely [...] patient. The patient stated she is independent [employer]. Lives with her . CM department will continue to follow for DC needs. SIGNATURE: Donna Gupta PATIENT NAME: Trenton Jackson DATE: June 09, 2018 TIME: 4:45 PM PAGER/CONTACT #: [phone] Normal [facility] CBCon 06-09-2018 Erythrocyte distribution width Ratio (RBC) 13.0 % Normal 11.5-15.0 [facility] Comment on above: Performed By: #### H STNT #### [facility] [address] [facility] [phone] Hematocrit Volume Fraction (Bld) 42.5 % Normal 36.0-46.0 [facility] Comment on above: Performed By: #### H STNT #### [facility] [address] [facility] [phone] Hemoglobin mass conc (Bld) 14.0 g/dL Normal 11.5-15.5 [facility] Comment on above: Performed By: #### H STNT #### [facility] [address] [place] [address] MCH Entitic mass (RBC) 27.0 pG Normal 26.0-34.0 [facility] Comment on above: Performed By: #### H STNT #### [facility] [address] [place] [address] MCHC mass conc (RBC) 32.9 g/dL Normal 30.5-36.0 [facility] Comment on above: Performed By: #### H STNT #### [facility] [address] [address] MCV Entitic volume (RBC) 82.0 fL Normal 80.0-100.0 [facility] Comment on above: Performed By: #### H STNT #### [facility] [address] [place] [address] Platelet mean volume Entitic volume (Bld) 9.6 fL Normal 9.0-12.7 [facility] Comment on above: Performed By: #### H STNT #### [facility] [address] [place] [address] Platelets #/vol (Bld) 217 10*3/uL Normal 150-400 [facility] Comment on above: Performed By: #### H STNT #### [facility] [address] [place] [address] RBC #/vol (Bld) 5.18 10*6/uL Normal 3.90-5.20 [facility] Comment on above: Performed By: #### H STNT #### [facility] [address] [place] [address] WBC #/vol (Bld) 8.16 10*3/uL Normal 3.70-11.00 [facility] Comment on above: Performed By: #### H STNT #### [facility] [address] [place] [address] CONSULTon 06-09-2018 CONSULT HNO ID: [id number] Author: Jasvir Kumar Service: Gastroenterology Author Type: [...] 09, 2018 TIME: 8:21 AM PAGER: Normal [facility] Comp Metabolic Panelon 06-09 Albumin mass conc 3.5 g/dL Low 3.9-4.9 [facility] Comment on above: Performed By: #### C MP ####[facility] [address] [place] [address] ALP enzyme act/vol 83 U/L Normal 34-123 [facility] Comment on above: Performed By: #### C MP ####[facility] [address] [place] [address] ALT enzyme act/vol 12 U/L Normal 7-38 [facility] Comment on above: Performed By: #### C MP ####[facility] [address] [place] [address] Anion gap molar conc 14 mmol/L Normal 9-18 [facility] Comment on above: Performed By: #### C MP ####[place] [address] AST enzyme act/vol 14 U/L Normal 13-35 [facility] Comment on above: Performed By: #### C MP ####[facility] [address] [place] [address] Bilirubin mass conc 0.7 mg/dL Normal 0.2-1.3 [facility] Comment on above: Performed By: #### C MP ####[place] [address] Calcium mass conc 8.6 mg/dL Normal 8.5-10.2 [facility] Comment on above: Performed By: #### C MP ####[facility] [address] [place], [place] [address] Chloride molar conc 98 mmol/L Normal 97-105 [facility] Comment on above: Performed By: #### C MP ####[facility] [address] [place] [address] CO2 molar conc 22 mmol/L Normal 22-30 [facility] Comment on above: Performed By: #### C MP ####[facility] [address] [place] [address] Creatinine mass conc 0.60 mg/dL Normal 0.58-0.96 [facility] Comment on above: Performed By: #### C MP ####[facility] [address] [place] [address] eGFR- Amer. >60 Normal [facility] Comment on above: Performed By: #### C MP ####[facility] [address] [place] [address] GFR/1.73 sq M predicted among non-blacks MDRD vol rate/area (S/P/Bld) mL/min/{1.73_m2} Normal [facility] Comment on above: Result Comment: eGFR [...] actual GFR. Performed By: #### C MP ####[facility] [address] [place] [address] Glucose mass conc 313 mg/dL High 74-99 [facility] Comment on above: Result Comment: The [place] Diabetes Association (ADA) provides guidance for cutoff [...] Standards of Medical Care in Diabetes 2016, [place] [employer]. Diabetes Care. 2016.39(Suppl 1). Performed By: #### C MP ####[facility] [address] [place] [address] Potassium molar conc 3.6 mmol/L Low 3.7-5.1 [facility] Comment on above: Performed By: #### C MP ####[facility] [address] [place] [address] Protein mass conc 5.6 g/dL Low 6.3-8.0 [facility] Comment on above: Performed By: #### C MP ####[facility] [address] [place] [address] Sodium molar conc 134 mmol/L Low 136-144 [facility] Comment on above: Performed By: #### C MP ####[facility] [address] [place] [address] Urea nitrogen mass conc 5 mg/dL Low 7-21 [facility] Comment on above: Performed By: #### C MP ####[facility] [address] [place] [address] Magnesiumon 06-09-2018 Magnesium mass conc 1.8 mg/dL Normal 1.7-2.3 [facility] Comment on above: Performed By: #### H STNT #### [facility] [address] [place], [place] [id number] PROGRESSon 06-09-2018 Protein mass conc HNO ID: [id number] Author: Lisa Bocanegra Service: Hospital Medicine Author [...] 1615 vte non-pharmacologic prophylaxis - none indicated (nv,oh) 06/08/18 1615 activity - mobilize patient (nv,fl) VTE Prophylaxis: VTE prophylaxis appropriate SIGNATURE: Lisa Bocanegra MD PATIENT NAME: Trenton Jackson DATE: June 09, 2018 TIME: 4:55 PM PAGER: [phone] Normal [facility] ABD COMPL WITH UPRIGHT PA CH [...] of fecal material throughout the colon. Normal [facility] Comp Metabolic Panelon 06-08 Albumin mass conc 3.5 g/dL Low 3.9-4.9 [facility] Comment on above: Performed By: #### H STNT #### [facility] [address] [place] [phone] ALP enzyme act/vol 95 U/L Normal 34-123 [facility] Comment on above: Performed By: #### H STNT #### [facility] [address] ALT enzyme act/vol 10 U/L Normal 7-38 [facility] Comment on above: Performed By: #### H STNT #### [facility] [address] [place] [phone] Anion gap molar conc 9 mmol/L Normal 9-18 [facility] Comment on above: Performed By: #### H STNT #### [facility] [address] [place] [address] AST enzyme act/vol 14 U/L Normal 13-35 [facility] Comment on above: Performed By: #### H STNT #### [facility] [address] [address] Bilirubin mass conc 0.9 mg/dL Normal 0.2-1.3 [facility] Comment on above: Performed By: #### H STNT #### [facility] [address] [address] Calcium mass conc 8.9 mg/dL Normal 8.5-10.2 [facility] Comment on above: Performed By: #### H STNT #### [facility] [address] [place] [address] Chloride molar conc 100 mmol/L Normal 97-105 [facility] Comment on above: Performed By: #### H STNT #### [facility] [address] [address] CO2 molar conc 26 mmol/L Normal 22-30 [facility] Comment on above: Performed By: #### H STNT #### [facility] [address] [address] Creatinine mass conc 0.56 mg/dL Low 0.58-0.96 [facility] Comment on above: Performed By: #### H STNT #### [facility] [address] [place] [address] eGFR- Amer. >60 Normal [facility] Comment on above: Performed By: #### H STNT #### [facility] [address] [place] [address] GFR/1.73 sq M predicted among non-blacks MDRD vol rate/area (S/P/Bld) mL/min/{1.73_m2} Normal [facility] Comment on above: Result Comment: eGFR [...] GFR. Performed By: #### H STNT #### [facility] [address] [place] [address] Glucose mass conc 219 mg/dL High 74-99 [facility] Comment on above: Result Comment: The [place] Diabetes Association (ADA) provides guidance for cutoff [...] Standards of Medical Care in Diabetes 2016, [place] [employer]. Diabetes Care. 2016.39(Suppl 1). Performed By: #### H STNT #### [facility] [address] [address] Potassium molar conc 4.0 mmol/L Normal 3.7-5.1 [facility] Comment on above: Performed By: #### H STNT #### [facility] [address] [place] [address] Protein mass conc 5.9 g/dL Low 6.3-8.0 [facility] Comment on above: Performed By: #### H STNT #### [facility] [address] [place] [address] Sodium molar conc 135 mmol/L Low 136-144 [facility] Comment on above: Performed By: #### H STNT #### [facility] [address] [place] [address] Urea nitrogen mass conc 3 mg/dL Low 7-21 [facility] Comment on above: Performed By: #### H STNT #### [facility] [address] [place] [address] Comprehensive Panelon 2018 ALT-SGPT Blood 20 U/L Normal 14-63 [facility] Comment on above: Performed By: #### L MACU #### [facility] [address] [place] [address] Albumin [Mass/Vol] 3.3 g/dL Low 3.4-5.0 [facility] Comment on above: Performed By: #### L MACU #### [facility] [address] [place] [address] ALP [Catalytic activity/Vol] 111 U/L Normal 46-116 [facility] Comment on above: Performed By: #### L MACU #### [facility] [address] [place] [address] Anion gap [Moles/Vol] 15 mmol/L Normal 8-20 [facility] Comment on above: Performed By: #### L MACU #### [place] [address] AST-SGOT Blood 20 U/L Normal 15-37 [facility] Comment on above: Performed By: #### L MACU #### [facility] [address] [place] [address] Bilirubin Ql (U) 1.1 mg/dL High 0.2-1.0 [facility] Comment on above: Performed By: #### L MACU #### [facility] [address] [place] [address] Calcium [Mass/Vol] 8.9 mg/dL Normal 8.5-10.1 [facility] Comment on above: Performed By: #### L MACU #### [facility] [address] [place] [address] Chloride [Moles/Vol] 97 mmol/L Low 98-107 [facility] Comment on above: Performed By: #### L MACU #### [facility] [address] [place] [address] CO2 Blood 25 mEq/L Normal 21-32 [facility] Comment on above: Performed By: #### L MACU #### [place] [address] Creatinine [Mass/Vol] 0.52 mg/dL Normal 0.51-0.95 [facility] Comment on above: Performed By: #### L MACU #### [facility] [address] [place], [place] [address] Glucose [Mass/Vol] 354 mg/dL High 70-99 [facility] Comment on above: Performed By: #### L MACU #### [facility] [address] [place], [place] [address] Potassium [Moles/Vol] 4.0 mmol/L Normal 3.5-5.1 [facility] Comment on above: Performed By: #### L MACU #### [facility] [address] [place], [place] [address] Protein [Mass/Vol] 7.0 g/dL Normal 6.4-8.2 [facility] Comment on above: Performed By: #### L MACU #### [facility] [address] [place], [place] [address] Sodium [Moles/Vol] 133 mmol/L Low 136-145 [facility] Comment on above: Performed By: #### L MACU #### [address] [address] Urea nitrogen [Mass/Vol] 4 mg/dL Low 7-25 [facility] Comment on above: Performed By: #### L MACU #### [facility] [address] [place], [place] [address] Urea nitrogen/Creatinine [Mass ratio] 8 mg/mg Low 10-20 [facility] Comment on above: Performed By: #### L MACU #### [address] [address] Glucose Meteron 06-08-2018 Glucose [Mass/Vol] 224 mg/dL High 70-99 [facility] Comment on above: Result Comment: CHAYITO Flores OTIFIED [place] [address] Performed By: #### L ACET #### [address] [address] HISTORY PHYSICALon 9 HISTORY PHYSICAL HNO ID: [id number] Author: Lisa Bocanegra Service: Hospital Medicine Author Type: Physician Type: HANDP Filed: 06/08/2018 8:28 PM Note Text: SERVICE DATE: 06/08/2018 SERVICE TIME: 8:28 PM HOSPITAL MEDICINE HISTORY AND PHYSICAL PCP: Uziel Conteh MD NIGHT AND WEEKEND COVERAGE: Nights: Please contact pager [phone]. SUBJECTIVE Chief Complaint: abd pain- 4 days [...] 1615 vte non-pharmacologic prophylaxis - none indicated (nv,fl) 06/08/18 1615 activity - mobilize patient (nv,fl) VTE Prophylaxis: VTE prophylaxis appropriate SIGNATURE: Lisa Bocanegra MD PATIENT NAME: Trenton Jackson DATE: June 08, 2018 TIME: 8:28 PM PAGER/CONTACT #: [phone] [facility] Hemoglobin A1con 06-08-2018 Hemoglobin A1c/Hemoglobin.total mass fraction (Bld) Unable to assay. No specimen received. [facility] Comment on above: Performed By: #### H STNT #### [facility] [address] [facility] [phone] Hemogram/Diffon 06-08-2018 Erythrocyte distribution width (RBC) [Ratio] 12.8 % Normal 11.5-15.9 [facility] Comment on above: Performed By: #### L MACU #### [facility] [address] [place] [address] Hemoglobin (Bld) [Mass/Vol] 16.0 g/dL Normal 12.0-16.0 [facility] Comment on above: Performed By: #### L MACU #### [place] [address] MCHC (RBC) [Mass/Vol] 34.4 % Normal 32.0-36.0 [facility] Comment on above: Performed By: #### L MACU #### [place] [address] MCV (RBC) [Entitic vol] 80.3 fL Low 81.0-99.0 [facility] Comment on above: Performed By: #### L MACU #### [place] [address] WBC (Bld) [#/Vol] 14.0 thou/cmm High 4.8-10.8 [facility] Comment on above: Performed By: #### L MACU #### [place] [address] Hemogram/Manual Diffon 06-08 Abs. Baso 0.00 thou/cmm Normal 0.00-0.08 [facility] Comment on above: Performed By: #### L MACU #### [place] [address] Abs. Eosin 0.00 thou/cmm Normal 0.00-0.41 [facility] Comment on above: Performed By: #### L MACU #### [place] [address] Abs. Lymph 2.24 thou/cmm Normal 1.50-3.65 [facility] Comment on above: Performed By: #### L MACU #### [facility] [address] [place] [address] Abs. Carroll 0.28 thou/cmm Normal 0.20-1.00 [facility] Comment on above: Performed By: #### L MACU #### [facility] [address] [place] [address] Abs. Neut (ANC) 11.48 thou/cmm High 3.00-5.67 [facility] Comment on above: Performed By: #### L MACU #### [facility] [address] [place] [address] Basophil 0.0 % Normal [facility] Comment on above: Performed By: #### L MACU #### [facility] [address] [place] [address] Eosinophil 0.0 % Normal [facility] Comment on above: Performed By: #### L MACU #### [facility] [address] [place] [address] Lymphocyte 16.0 % Normal [facility] Comment on above: Performed By: #### L MACU #### [facility] [address] [place] [address] Monocyte 2.0 % Normal [facility] Comment on above: Performed By: #### L MACU #### [place] [address] Platelets (Bld) [#/Vol] Normal Normal [facility] Comment on above: Performed By: #### L MACU #### [facility] [address] [place] [address] RBC morphology finding Nom (Bld) Normal Normal [facility] Comment on above: Performed By: #### L MACU #### [facility] [address] [place] [address] Seg Neutrophil 82.0 % Normal [facility] Comment on above: Performed By: #### L MACU #### [facility] [address] [place] [address] Toxic Granulation Few Normal [facility] Comment on above: Performed By: #### L MACU #### [facility] [address] [place] [address] WBC Morphology see below Normal [facility] Comment on above: Result Comment: Toxi c vacuoles present Performed By: #### L MACU #### [facility] [address] [place] [address] Diff Type Manual Diff Normal [facility] Comment on above: Performed By: #### L MACU #### [place] [address] Hematocrit (Bld) [Volume fraction] 46.5 % Normal 37.0-47.0 [facility] Comment on above: Performed By: #### L MACU #### [place] [address] MCH (RBC) [Entitic mass] 27.6 pg Normal 27.0-31.0 [facility] Comment on above: Performed By: #### L MACU #### [place] [address] Platelet mean volume (Bld) [Entitic vol] 9.5 fl Normal 7.1-10.5 [facility] Comment on above: Performed By: #### L MACU #### [place] [address] Platelets (Bld) [#/Vol] 197 thou/cmm Normal 150-400 [facility] Comment on above: Performed By: #### L MACU #### [place] [address] RBC (Bld) [#/Vol] 5.79 mil/cmm High 4.20-5.40 [facility] Comment on above: Performed By: #### L MACU #### [place] [address] Lactic acidon 06-08-2018 Lactate [Moles/Vol] 1.2 mmol/L Normal 0.4-2.0 [facility] Comment on above: Performed By: #### L MACU #### [place] [address] MDRD eGFRon 06-08-2018 GFR/1.73 sq M predicted among non-blacks MDRD (S/P/Bld) [Vol rate/Area] mL/min/{1.73_m2} Normal >60mL/min/ 1.73m2 [facility] Comment on above: Result Comment: If t he patient is , multiply the result by 1.210. Performed By: #### L ACET #### [place] [address] NT Pro BNPon 06-08-2018 Protein mass conc 763 pg/mL High <125 [facility] Comment on above: Performed By: #### H STNT #### [facility] [address] [facility] [phone] PROGRESSon 06-08-2018 Protein mass conc HNO ID: [id number] Author: Abbi Valencia (Pharmacist) Service: Pharmacy Author [...] ABBI VALENCIA, PHARMD, BCPS PAGER / Extension: [phone] Normal [facility] Urinalysis Routineon 019 Appearance (U) 1+ (HAZY) Normal [facility] Comment on above: Performed By: #### L ACET #### [place] [address] Bilirubin Urine Negative Normal Negative [facility] Comment on above: Performed By: #### L ACET #### [place] [address] Color (U) YELLOW Normal [facility] Comment on above: Performed By: #### L ACET #### [place] [address] Ep Cells Urine 2-5 Normal 0-5 [facility] Comment on above: Performed By: #### L ACET #### [facility] [address] [place] [address] Glucose Ql (U) 2+ Abnormal Negative [facility] Comment on above: Performed By: #### L ACET #### [facility] [address] [place] [address] Hemoglobin,Urine Negative Normal Negative [facility] Comment on above: Performed By: #### L ACET #### [facility] [address] [place] [address] Ketone Urine 1+ Abnormal Negative [facility] Comment on above: Performed By: #### L ACET #### [facility] [address] [place] [address] Leukocytes Esterase Negative Normal Negative [facility] Comment on above: Performed By: #### L ACET #### [place] [address] Nitrites Urine Negative Normal Negative [facility] Comment on above: Performed By: #### L ACET #### [place] [address] pH (U) 7.0 [pH] Normal 5.0-8.0 [facility] Comment on above: Performed By: #### L ACET #### [facility] [address] [place] [address] Protein (U) [Mass/Vol] Negative Normal Negative [facility] Comment on above: Performed By: #### L ACET #### [place] [address] RBC LM.HPF (Urine sed) [#/Area] 0-3 Normal 0-3 [facility] Comment on above: Performed By: #### L ACET #### [place] [address] Specific [place], Ur 1.015 Normal 1.005-1 .03 0 [facility] Comment on above: Performed By: #### L ACET #### [place] [address] Urobilinogen,Ur 0.2 EU/dL Normal 0.0-1.0 [facility] Comment on above: Performed By: #### L ACET #### [facility] [address] [place], [place] [address] WBC LM.HPF (Urine sed) [#/Area] NONE Normal 0-5 [facility] Comment on above: Performed By: #### L ACET #### [facility] [address] [place], [place] [address] Urine HCG, Qual.on 9 Beta HCG ( test) Ql (U) Negative Normal Negative [facility] Comment on above: Performed By: #### L ACET #### [facility] [address] [place], [place] [address] CT ABDOMEN AND PELVIS WITH C ONTRASTon [...] evidence of an abscess or pneumoperitoneum Normal [facility] Comprehensive Panelon 2018 Albumin [Mass/Vol] 3.5 g/dL Normal 3.4-5.0 [facility] Comment on above: Performed By: #### L MACU #### [place] [address] ALP [Catalytic activity/Vol] 112 U/L Normal 46-116 [facility] Comment on above: Performed By: #### L MACU #### [place] [address] ALT-SGPT Blood 17 U/L Normal 14-63 [facility] Comment on above: Performed By: #### L MACU #### [place] [address] Anion gap [Moles/Vol] 14 mmol/L Normal 8-20 [facility] Comment on above: Performed By: #### L MACU #### [place] [address] AST-SGOT Blood 16 U/L Normal 15-37 [facility] Comment on above: Performed By: #### L MACU #### [place] [address] Bilirubin Ql (U) 0.7 mg/dL Normal 0.2-1.0 [facility] Comment on above: Performed By: #### L MACU #### [place] [address] Calcium [Mass/Vol] 9.1 mg/dL Normal 8.5-10.1 [facility] Comment on above: Performed By: #### L MACU #### [facility] [address] [place], [place] [address] Chloride [Moles/Vol] 97 mmol/L Low 98-107 [facility] Comment on above: Performed By: #### L MACU #### [facility] [address] [place], [place] [address] CO2 Blood 27 mEq/L Normal 21-32 [facility] Comment on above: Performed By: #### L MACU #### [facility] [address] [place], [place] [address] Creatinine [Mass/Vol] 0.57 mg/dL Normal 0.51-0.95 [facility] Comment on above: Performed By: #### L MACU #### [facility] [address] [place], [place] [address] Glucose [Mass/Vol] 416 mg/dL Critically high 70-99 [facility] Comment on above: Performed By: #### L MACU #### [facility] [address] [place], [place] [address] Potassium [Moles/Vol] 3.9 mmol/L Normal 3.5-5.1 [facility] Comment on above: Performed By: #### L MACU #### [facility] [address] [place], [place] [address] Protein [Mass/Vol] 7.4 g/dL Normal 6.4-8.2 [facility] Comment on above: Performed By: #### L MACU #### [facility] [address] [place], [place] [address] Sodium [Moles/Vol] 134 mmol/L Low 136-145 [facility] Comment on above: Performed By: #### L MACU #### [facility] [address] [place], [place] [address] Urea nitrogen [Mass/Vol] 7 mg/dL Normal 7-25 [facility] Comment on above: Performed By: #### L MACU #### [facility] [address] [place], [place] [address] Urea nitrogen/Creatinine [Mass ratio] 12 mg/mg Normal 10-20 [facility] Comment on above: Performed By: #### L MACU #### [facility] [address] [place] [address] Glucose Meteron 06-07-2018 Glucose [Mass/Vol] 326 mg/dL High 70-99 [facility] Comment on above: Result Comment: CHAYITO MÉNDEZ MD NOTIFIED [place] [address] Performed By: #### L MACU #### [place] [address] Hemogram/Diffon 06-07-2018 Abs. Baso 0.07 thou/cmm Normal 0.00-0.08 [facility] Comment on above: Performed By: #### L CBCD #### [place] [address] Abs. Carroll 0.43 thou/cmm Normal 0.20-1.00 [facility] Comment on above: Performed By: #### L CBCD #### [place] [address] Abs. Neut (ANC) 9.53 thou/cmm High 3.00-5.67 [facility] Comment on above: Performed By: #### L CBCD #### [place] [address] Basophils/100 WBC (Bld) 0.6 % Normal [facility] Comment on above: Performed By: #### L CBCD #### [place] [address] Eosinophils (Bld) [#/Vol] 0.17 thou/cmm Normal 0.00-0.41 [facility] Comment on above: Performed By: #### L CBCD #### [place] [address] Eosinophils/100 WBC (Bld) 1.4 % Normal [facility] Comment on above: Performed By: #### L CBCD #### [place] [address] Erythrocyte distribution width (RBC) [Ratio] 12.8 % Normal 11.5-15.9 [facility] Comment on above: Performed By: #### L CBCD #### [facility] [address] [place], [place] [address] Hematocrit (Bld) [Volume fraction] 47.7 % High 37.0-47.0 [facility] Comment on above: Performed By: #### L CBCD #### [facility] [address] [place], [place] [address] Hemoglobin (Bld) [Mass/Vol] 16.1 g/dL High 12.0-16.0 [facility] Comment on above: Performed By: #### L CBCD #### [address] [address] Lymphocytes (Bld) [#/Vol] 2.00 thou/cmm Normal 1.50-3.65 [facility] Comment on above: Performed By: #### L CBCD #### [address] [address] Lymphocytes/100 WBC (Bld) 16.4 % Normal [facility] Comment on above: Performed By: #### L CBCD #### [address] [address] MCH (RBC) [Entitic mass] 27.3 pg Normal 27.0-31.0 [facility] Comment on above: Performed By: #### L CBCD #### [address] [address] MCHC (RBC) [Mass/Vol] 33.8 % Normal 32.0-36.0 [facility] Comment on above: Performed By: #### L CBCD #### [address] [address] MCV (RBC) [Entitic vol] 81.0 fL Normal 81.0-99.0 [facility] Comment on above: Performed By: #### L CBCD #### [address] [address] Monocytes/100 WBC (Bld) 3.5 % Normal [facility] Comment on above: Performed By: #### L CBCD #### [address] [place], [place] [address] Platelet mean volume (Bld) [Entitic vol] 9.5 fL Normal 7.1-10.5 [facility] Comment on above: Performed By: #### L CBCD #### [facility] [address] [place] [address] Platelets (Bld) [#/Vol] 235 thou/cmm Normal 150-400 [facility] Comment on above: Performed By: #### L CBCD #### [facility] [address] [place] [address] RBC (Bld) [#/Vol] 5.89 mil/cmm High 4.20-5.40 [facility] Comment on above: Performed By: #### L CBCD #### [place] [address] Seg Neutrophil 78.1 % Normal [facility] Comment on above: Performed By: #### L CBCD #### [place] [address] WBC (Bld) [#/Vol] 12.2 thou/cmm High 4.8-10.8 [facility] Comment on above: Performed By: #### L CBCD #### [place] [address] Lactic acidon 06-07-2018 Lactate [Moles/Vol] 1.6 mmol/L Normal 0.4-2.0 [facility] Comment on above: Performed By: #### L MACU #### [place] [address] MDRD eGFRon 06-07-2018 GFR/1.73 sq M predicted among non-blacks MDRD (S/P/Bld) [Vol rate/Area] mL/min/{1.73_m2} Normal >60mL/min/ 1.73m2 [facility] Comment on above: Result Comment: If t he patient is , multiply the result by 1.210. Performed By: #### L MACU #### [place] [address] Macroscopic Urinalysison Appearance (U) CLEAR Normal [facility] Comment on above: Performed By: #### L MACU #### [facility] [address] [place] [address] Bilirubin Urine Negative Normal Negative [facility] Comment on above: Performed By: #### L MACU #### [facility] [address] [place] [address] Color (U) YELLOW Normal [facility] Comment on above: Performed By: #### L MACU #### [facility] [address] [place] [address] Glucose Ql (U) 3+ Abnormal Negative [facility] Comment on above: Performed By: #### L MACU #### [place] [address] Hemoglobin,Urine Negative Normal Negative [facility] Comment on above: Performed By: #### L MACU #### [place] [address] Ketone Urine TRACE Abnormal Negative [facility] Comment on above: Performed By: #### L MACU #### [place] [address] Leukocytes Esterase Negative Normal Negative [facility] Comment on above: Performed By: #### L MACU #### [place] [address] Nitrites Urine Negative Normal Negative [facility] Comment on above: Performed By: #### L MACU #### [place] [address] pH (U) 6.5 [pH] Normal 5.0-8.0 [facility] Comment on above: Performed By: #### L MACU #### [place] [address] Protein (U) [Mass/Vol] Negative Normal Negative [facility] Comment on above: Performed By: #### L MACU #### [place] [address] Specific [place], Ur <=1.005 Normal 1.005-1 .03 0 [facility] Comment on above: Performed By: #### L MACU #### [facility] [address] [place], [place] [address] Urobilinogen,Ur 0.2 EU/dL Normal 0.0-1.0 [facility] Comment on above: Performed By: #### L MACU #### [facility] [address] [place], [place] [address] CT ABDOMEN AND PELVIS WITH C ONTRASTon [...] additional stable chronic findings as above Normal [facility] Comprehensive Panelon 2018 Albumin [Mass/Vol] 3.9 g/dL Normal 3.4-5.0 [facility] Comment on above: Performed By: #### L P14 #### [place] [address] ALP [Catalytic activity/Vol] 139 U/L High 46-116 [facility] Comment on above: Performed By: #### L P14 #### [place] [address] ALT-SGPT Blood 22 U/L Normal 14-63 [facility] Comment on above: Performed By: #### L P14 #### [place] [address] Anion gap [Moles/Vol] 13 mmol/L Normal 8-20 [facility] Comment on above: Performed By: #### L P14 #### [place] [address] AST-SGOT Blood 19 U/L Normal 15-37 [facility] Comment on above: Performed By: #### L P14 #### [place] [address] Bilirubin Ql (U) 0.7 mg/dL Normal 0.2-1.0 [facility] Comment on above: Performed By: #### L P14 #### [place] [address] Calcium [Mass/Vol] 9.5 mg/dL Normal 8.5-10.1 [facility] Comment on above: Performed By: #### L P14 #### [facility] [address] [place], [place] [address] Chloride [Moles/Vol] 97 mmol/L Low 98-107 [facility] Comment on above: Performed By: #### L P14 #### [facility] [address] [place], [place] [address] CO2 Blood 23 mEq/L Normal 21-32 [facility] Comment on above: Performed By: #### L P14 #### [facility] [address] [place], [place] [address] Creatinine [Mass/Vol] 0.56 mg/dL Normal 0.51-0.95 [facility] Comment on above: Performed By: #### L P14 #### [facility] [address] [place], [place] [address] Glucose [Mass/Vol] 323 mg/dL High 70-99 [facility] Comment on above: Performed By: #### L P14 #### [facility] [address] [place], [place] [address] Potassium [Moles/Vol] 4.5 mmol/L Normal 3.5-5.1 [facility] Comment on above: Performed By: #### L P14 #### [facility] [address] [place], [place] [address] Protein [Mass/Vol] 8.0 g/dL Normal 6.4-8.2 [facility] Comment on above: Performed By: #### L P14 #### [facility] [address] [place], [place] [address] Sodium [Moles/Vol] 129 mmol/L Low 136-145 [facility] Comment on above: Performed By: #### L P14 #### [facility] [address] [place], [place] [address] Urea nitrogen [Mass/Vol] 9 mg/dL Normal 7-25 [facility] Comment on above: Performed By: #### L P14 #### [facility] [address] [place], [place] [address] Urea nitrogen/Creatinine [Mass ratio] 16 mg/mg Normal 10-20 [facility] Comment on above: Performed By: #### L P14 #### [facility] [address] [place] [address] HCG, Qual. Serumon 9 HCG, Qual. Serum Negative Normal Negative [facility] Comment on above: Performed By: #### L SHCG #### [facility] [address] [place] [address] Hemogram/Manual Diffon 06-04 Abs. Baso 0.00 thou/cmm Normal 0.00-0.08 [facility] Comment on above: Performed By: #### L MCBD #### [facility] [address] [place] [address] Abs. Eosin 0.17 thou/cmm Normal 0.00-0.41 [facility] Comment on above: Performed By: #### L MCBD #### [facility] [address] [place] [address] Abs. Lymph 3.46 thou/cmm Normal 1.50-3.65 [facility] Comment on above: Performed By: #### L MCBD #### [facility] [address] [place] [address] Abs. [place] 0.69 thou/cmm Normal 0.20-1.00 [facility] Comment on above: Performed By: #### L MCBD #### [facility] [address] [place] [address] Abs. Neut (ANC) 12.98 thou/cmm High 3.00-5.67 [facility] Comment on above: Performed By: #### L MCBD #### [facility] [address] [place] [address] Atypical Lymph 3.0 % Normal [facility] Comment on above: Performed By: #### L MCBD #### [facility] [address] [place] [address] Basophil 0.0 % Normal [facility] Comment on above: Performed By: #### L MCBD #### [place] [address] Eosinophil 1.0 % Normal [facility] Comment on above: Performed By: #### L MCBD #### [facility] [address] [place] [address] Lymphocyte 17.0 % Normal [facility] Comment on above: Performed By: #### L MCBD #### [facility] [address] [place] [address] Metamyelocytes 2.0 % Normal [facility] Comment on above: Performed By: #### L MCBD #### [facility] [address] [place] [address] Monocyte 4.0 % Normal [facility] Comment on above: Performed By: #### L MCBD #### [facility] [address] [place] [address] Platelets (Bld) [#/Vol] Normal Normal [facility] Comment on above: Performed By: #### L MCBD #### [place] [address] RBC morphology finding Nom (Bld) Normal Normal [facility] Comment on above: Performed By: #### L MCBD #### [facility] [address] [place] [address] Seg Neutrophil 73.0 % Normal [facility] Comment on above: Performed By: #### L MCBD #### [facility] [address] [place] [address] Toxic Granulation Few Normal [facility] Comment on above: Performed By: #### L MCBD #### [place] [address] WBC Morphology see below Normal [facility] Comment on above: Result Comment: Toxi c vacuoles present Performed By: #### L MCBD #### [facility] [address] [place] [address] Diff Type Manual Diff Normal [facility] Comment on above: Performed By: #### L MCBD #### [facility] [address] [place] [address] Erythrocyte distribution width (RBC) [Ratio] 13.2 % Normal 11.5-15.9 [facility] Comment on above: Performed By: #### L MCBD #### [address], [place] [address] Hematocrit (Bld) [Volume fraction] 51.8 % High 37.0-47.0 [facility] Comment on above: Performed By: #### L MCBD #### [facility] [address] [place], [place] [address] Hemoglobin (Bld) [Mass/Vol] 17.7 g/dL High 12.0-16.0 [facility] Comment on above: Performed By: #### L MCBD #### [facility] [address] [place] [address] MCH (RBC) [Entitic mass] 27.5 pg Normal 27.0-31.0 [facility] Comment on above: Performed By: #### L MCBD #### [facility] [address] [place] [address] MCHC (RBC) [Mass/Vol] 34.2 % Normal 32.0-36.0 [facility] Comment on above: Performed By: #### L MCBD #### [place] [address] MCV (RBC) [Entitic vol] 80.4 fl Low 81.0-99.0 [facility] Comment on above: Performed By: #### L MCBD #### [place] [address] Platelet mean volume (Bld) [Entitic vol] 10.3 fl Normal 7.1-10.5 [facility] Comment on above: Performed By: #### L MCBD #### [facility] [address] [place] [address] Platelets (Bld) [#/Vol] 224 thou/cmm Normal 150-400 [facility] Comment on above: Performed By: #### L MCBD #### [facility] [address] [place] [address] RBC (Bld) [#/Vol] 6.44 mil/cmm High 4.20-5.40 [facility] Comment on above: Performed By: #### L MCBD #### [place] [address] WBC (Bld) [#/Vol] 17.3 thou/cmm High 4.8-10.8 [facility] Comment on above: Performed By: #### L MCBD #### [place] [address] Ketoneson 06-04-2018 Ketones Ql (U) Negative Normal Negative [facility] Comment on above: Performed By: #### L ACET #### [place] [address] Lipase Bloodon 06-04-2018 Lipase Blood 85 U/L Normal 73-393 [facility] Comment on above: Performed By: #### L LIP #### [place] [address] MDRD eGFRon 06-04-2018 GFR/1.73 sq M predicted among non-blacks MDRD (S/P/Bld) [Vol rate/Area] mL/min/{1.73_m2} Normal >60mL/min/ 1.73m2 [facility] Comment on above: Result Comment: If t he patient is , multiply the result by 1.210. Performed By: #### L GFR #### [place] [address] Macroscopic Urinalysison Appearance (U) CLEAR Normal [facility] Comment on above: Performed By: #### L MACU #### [place] [address] Bilirubin Urine Negative Normal Negative [facility] Comment on above: Performed By: #### L MACU #### [place] [address] Color (U) YELLOW Normal [facility] Comment on above: Performed By: #### L MACU #### [place] [address] Glucose Ql (U) 2+ Abnormal Negative [facility] Comment on above: Performed By: #### L MACU #### [place] [address] Hemoglobin,Urine Negative Normal Negative [facility] Comment on above: Performed By: #### L MACU #### [facility] [address] [place] [address] Ketone Urine Negative Normal Negative [facility] Comment on above: Performed By: #### L MACU #### [facility] [address] [place] [address] Leukocytes Esterase Negative Normal Negative [facility] Comment on above: Performed By: #### L MACU #### [facility] [address] [place] [address] Nitrites Urine Negative Normal Negative [facility] Comment on above: Performed By: #### L MACU #### [place] [address] pH (U) 5.0 [pH] Normal 5.0-8.0 [facility] Comment on above: Performed By: #### L MACU #### [place] [address] Protein (U) [Mass/Vol] Negative Normal Negative [facility] Comment on above: Performed By: #### L MACU #### [place] [address] Specific [place], Ur 1.020 Normal 1.005-1 .03 0 [facility] Comment on above: Performed By: #### L MACU #### [place] [address] Urobilinogen,Ur 0.2 EU/dL Normal 0.0-1.0 [facility] Comment on above: Performed By: #### L MACU #### [place] [address] Macroscopic Urinalysison Appearance (U) CLEAR Normal [facility] Comment on above: Performed By: #### L MACU #### [place] [address] Bilirubin Urine Negative Normal Negative [facility] Comment on above: Performed By: #### L MACU #### [place] [address] Color (U) YELLOW Normal [facility] Comment on above: Performed By: #### L MACU #### [facility] [address] [place] [address] Glucose Ql (U) 2+ Abnormal Negative [facility] Comment on above: Performed By: #### L MACU #### [facility] [address] [place] [address] Hemoglobin,Urine Negative Normal Negative [facility] Comment on above: Performed By: #### L MACU #### [facility] [address] [place] [address] Ketone Urine Negative Normal Negative [facility] Comment on above: Performed By: #### L MACU #### [place] [address] Leukocytes Esterase Negative Normal Negative [facility] Comment on above: Performed By: #### L MACU #### [place] [address] Nitrites Urine Negative Normal Negative [facility] Comment on above: Performed By: #### L MACU #### [place] [address] pH (U) 6.0 [pH] Normal 5.0-8.0 [facility] Comment on above: Performed By: #### L MACU #### [facility] [address] [place] [address] Protein (U) [Mass/Vol] Negative Normal Negative [facility] Comment on above: Performed By: #### L MACU #### [place] [address] Specific [place], Ur 1.020 Normal 1.005-1 .03 0 [facility] Comment on above: Performed By: #### L MACU #### [place] [address] Urobilinogen,Ur 0.2 EU/dL Normal 0.0-1.0 [facility] Comment on above: Performed By: #### L MACU #### [place] [address] CBC and Differentialon 12-14 Abs Baso 0.06 k/uL Normal <0.11 [facility] Comment on above: Performed By: #### N DIDIER CKCKMB #### [facility] [address] [address] Abs [place] 0.69 k/uL Normal <0.87 [facility] Comment on above: Performed By: #### N DIDIER CKCKMB #### [facility] [address] [place] [address] Abs Neut 8.14 k/uL High 1.45-7.50 [facility] Comment on above: Performed By: #### N DIDIER CKCKMB #### [facility] [address] [place] [address] Basophils/100 WBC (Bld) 0.5 % Normal [facility] Comment on above: Performed By: #### N DIDIER CKCKMB #### [facility] [address] [address] Eosinophils #/vol (Bld) 0.14 10*3/uL Normal <0.46 [facility] Comment on above: Performed By: #### N DIDIER CKCKMB #### [facility] [address] [place] [address] Eosinophils/100 WBC (Bld) 1.2 % Normal [facility] Comment on above: Performed By: #### N DIDIER CKCKMB #### [facility] [address] [address] Erythrocyte distribution width Ratio (RBC) 13.1 % Normal 11.5-15.0 [facility] Comment on above: Performed By: #### N DIDIER CKCKMB #### [facility] [address] [address] Hematocrit Volume Fraction (Bld) 46.6 % High 36.0-46.0 [facility] Comment on above: Performed By: #### N DIDIER CKCKMB #### [facility] [address] [address] Hemoglobin mass conc (Bld) 15.9 g/dL High 11.5-15.5 [facility] Comment on above: Performed By: #### N TBAMOR CKCKMB #### [facility] [address] [phone] Lymphocytes #/vol (Bld) 2.69 10*3/uL Normal 1.00-4.00 [facility] Comment on above: Performed By: #### N TBAMOR CKCKMB #### [facility] [address] [address] Lymphocytes/100 WBC (Bld) 23.0 % Normal [facility] Comment on above: Performed By: #### N TBAMOR CKCKMB #### [facility] [address] [address] MCH Entitic mass (RBC) 28.0 pG Normal 26.0-34.0 [facility] Comment on above: Performed By: #### N TBAMOR CKCKMB #### [facility] [address] [address] MCHC mass conc (RBC) 34.1 g/dL Normal 30.5-36.0 [facility] Comment on above: Performed By: #### N TBAMOR CKCKMB #### [facility] [address] [place] [address] MCV Entitic volume (RBC) 82.0 fL Normal 80.0-100.0 [facility] Comment on above: Performed By: #### N TBAMOR CKCKMB #### [facility] [address] [place] [address] Monocytes/100 WBC (Bld) 5.9 % Normal [facility] Comment on above: Performed By: #### N TBAMOR CKCKMB #### [facility] [address] [place] [address] Neutrophils/100 WBC (Bld) 69.4 % Normal [facility] Comment on above: Performed By: #### N TBAMOR CKCKMB #### [facility] [address] [place] [address] Platelet mean volume Entitic volume (Bld) 10.5 fL Normal 9.0-12.7 [facility] Comment on above: Performed By: #### N TBAMOR CKCKMB #### [facility] [address] [place] [address] Platelets #/vol (Bld) 236 10*3/uL Normal 150-400 [facility] Comment on above: Performed By: #### N TBAMOR CKCKMB #### [facility] [address] [phone] RBC #/vol (Bld) 5.68 10*6/uL High 3.90-5.20 [facility] Comment on above: Performed By: #### N TBNP, CKCKMB #### [facility] [address] [facility] [phone] WBC #/vol (Bld) 11.72 10*3/uL High 3.70-11.00 [facility] Comment on above: Performed By: #### N TBNP, CKCKMB #### [facility] [address] [phone] CK, Total and CKMBon 018 CK enzyme act/vol 41 U/L Low 42-196 [facility] Comment on above: Performed By: #### N TBNP, CKCKMB #### [facility] [address] [phone] CK MB % CK MB % not reported with CK <100 U/L. Normal 0.0-4.0 [facility] Comment on above: Performed By: #### N TBNP, CKCKMB #### [facility] [address] [phone] MB 1.5 ng/mL Normal <4.3 [facility] Comment on above: Performed By: #### N TBNP, CKCKMB #### [facility] [address] [phone] CT CHEST W IVCON PEon 2017 CT CHEST W IVCON PE * * *Final Report* * * DATE OF EXAM: Dec 14 2017 6:46PM [facility] [place] CT CHEST W IVCON PE [...] nodes. Cholecystectomy. Bilateral adrenal nodules, possibly adenomas. Washing Machine Installer: GEORGE Transcribe Date/Time: Dec 14 2017 7:14P Dictated by : WILLA VELASCO MD This examination was interpreted and the report reviewed and electronically signed by: WILLA VELASCO MD on Dec 14 2017 7:21PM EST [id number] Normal [facility] Comp Metabolic Panelon 12-14 Albumin mass conc 3.8 g/dL Low 3.9-4.9 [facility] Comment on above: Performed By: #### N TBNP, CKCKMB #### [facility] [address] [facility] [phone] ALP enzyme act/vol 82 U/L Normal 32-117 [facility] Comment on above: Performed By: #### N TBNP, CKCKMB #### [facility] [address] [facility] [phone] ALT enzyme act/vol 17 U/L Normal 7-38 [facility] Comment on above: Performed By: #### N DIDIER CKCKMB #### [facility] [address] [address] Anion gap molar conc 10 mmol/L Normal 9-18 [facility] Comment on above: Performed By: #### N DIDIER CKCKMB #### [facility] [address] [address] AST enzyme act/vol 17 U/L Normal 13-35 [facility] Comment on above: Performed By: #### N DIDIER CKCKMB #### [facility] [address] [address] Bilirubin mass conc 0.6 mg/dL Normal 0.2-1.3 [facility] Comment on above: Performed By: #### N DIDIER CKCKMB #### [facility] [address] [address] Calcium mass conc 8.9 mg/dL Normal 8.5-10.2 [facility] Comment on above: Performed By: #### N DIDIER CKCKMB #### [facility] [address] [address] Chloride molar conc 99 mmol/L Normal 97-105 [facility] Comment on above: Performed By: #### N DIDEIR CKCKMB #### [facility] [address] [address] CO2 molar conc 28 mmol/L Normal 22-30 [facility] Comment on above: Performed By: #### N DIDIER CKCKMB #### [facility] [address] [address] Creatinine mass conc 0.67 mg/dL Normal 0.58-0.96 [facility] Comment on above: Performed By: #### N DIDIER CKCKMB #### [facility] [address] [address] eGFR- Amer. >60 Normal [facility] Comment on above: Performed By: #### N TBAMOR CKCKMB #### [facility] [address] [place] [address] GFR/1.73 sq M predicted among non-blacks MDRD vol rate/area (S/P/Bld) mL/min/{1.73_m2} Normal [facility] Comment on above: Result Comment: eGFR [...] Performed By: #### N DIDIER CKCKMB #### [facility] [address] [place] [address] Glucose mass conc 180 mg/dL High 74-99 [facility] Comment on above: Result Comment: The [place] [employer] (ADA) provides guidance for cutoff [...] Standards of Medical Care in Diabetes 2016, [place] [employer]. Diabetes Care. 2016.39(Suppl 1). Performed By: #### N DIDIER CKCKMB #### [facility] [address] [facility] [phone] Potassium molar conc 4.2 mmol/L Normal 3.7-5.1 [facility] Comment on above: Performed By: #### N DIDIER CKCKMB #### [facility] [address] [place] [address] Protein mass conc 6.9 g/dL Normal 6.3-8.0 [facility] Comment on above: Performed By: #### N DIDIER CKCKMB #### [facility] [address] [facility] [phone] Sodium molar conc 137 mmol/L Normal 136-144 [facility] Comment on above: Performed By: #### N DIDIER, CKCKMB #### [facility] [address] [facility] [phone] Urea nitrogen mass conc 9 mg/dL Normal 7-21 [facility] Comment on above: Performed By: #### N DIDIER, CKCKMB #### [facility] [address] [facility] [phone] D dimeron 12-14-2017 D dimer 600 ng/mL FEU High 0-500 [facility] Comment on above: Result Comment: The [...] Performed By: #### N DIDIER, CKCKMB #### [facility] [address] [facility] [phone] ED NOTEon 12-14-2017 ED NOTE HNO ID: [id number] Author: Stacey AgudeloRn) CHAYITO Godinez Service: (none) Author Type: Registered Nurse Type: ED Notes Filed: 12/14/2017 7:58 PM Note Text: Patient in stable condition upon discharge. resp even and unlabored. No distress noted. Patient states she is feeling much better. Discharge and follow up reviewed, plan of care is agreed upon. Patient thankful for care upon discharge. [facility] ED NOTE HNO ID: [id number] Author: Lyla AgdueloRn) Desiree, RN Service: Nursing Author Type: Registered Nurse Type: ED Notes Filed: 12/14/2017 6:43 PM Note Text: Patient returned to the Emergency Department. [facility] ED NOTE HNO ID: [id number] Author: Lyla AgudeloRn) Desiree, RN Service: Nursing Author Type: Registered Nurse Type: ED Notes Filed: 12/14/2017 6:31 PM Note Text: Pt to CT with tech via wheelchair [facility] ED NOTE HNO ID: [id number] Author: Lyla (Rn) CHAYITO Ramírez Service: Nursing Author Type: Registered Nurse Type: ED Notes Filed: 12/14/2017 6:14 PM Note Text: Dr. Conway rounding on pt at bedside [facility] ED NOTE HNO ID: [id number] Author: Lyla AgudeloRn) CHAYITO Ramírez Service: Nursing Author Type: Registered Nurse Type: ED Notes Filed: 12/14/2017 3:31 PM Note Text: Patient returned to the Emergency Department. [facility] ED NOTE HNO ID: [id number] Author: Lyla AgudeloRn) CHAYITO Ramírez Service: Nursing Author Type: Registered Nurse Type: ED Notes Filed: 12/14/2017 3:25 PM Note Text: Pt to xray with tech. [facility] ED NOTE HNO ID: [id number] Author: Jazzmine AgudeloRn) CHAYITO Jarrett Service: Emergency Medicine Author Type: Registered Nurse Type: ED Notes Filed: 12/14/2017 3:28 PM Note Text: Report off care to Racquel STRATTON [facility] ED NOTE HNO ID: [id number] Author: Stacey AgudeloRn) CHAYITO Godinez Service: (none) Author Type: Registered Nurse Type: ED Notes Filed: 12/14/2017 2:57 PM Note Text: Patient presents to ED with chest pain x 4 days. Seen at [place] and recently dc from [facility] ED PROV NOTEon 12-14-2017 Protein mass conc HNO ID: [id number] Author: Jimmie Conway DO Service: Emergency Medicine Author Type: Physician Type: ED Provider Notes Filed: 12/14/2017 7:42 PM Note Text: ED Provider Note Patient Name: Trenton Jackson SERVICE DATE: 12/14/17 History Patient presents with: Chest Pain 47-year-old female past medical history of diabetes hypertension hyperlipidemia tobacco abuse presents with chest pain. Patient recently had an admission at [facility] from December 04, 2017 2 December 08, [...] Medications administered aspirin and Toradol Placed on cardiac nurse practitioner Reviewed and summarized previous medical records including recent admission at [facility] [place] cardiac workup Consultation obtained director of knowledge management Dr. Beyer Consultation recommendations unlikely to be related to recently diagnosed coronary artery dissection Stable upon arrival. EKG shows chronic abnormalities unchanged from recent EKGs.. Treated with aspirin followed by Toradol. Cardiac enzymes including troponin T and CK-MB within normal limits. Minimal leukocytosis noted. Chest x-ray negative. D-dimer mildly elevated. CT chest negative. Discussed with on-call director of knowledge management, chest pain unlikely to be related to recently diagnosed coronary artery dissection. Patient with significant improvement pain post analgesia as noted above. Will be discharged home in stable condition with continued use of previously prescribed tramadol and new prescription for Flexeril thoroughly notified of sedating effects. Referral provided to house painter, will follow-up with both director of knowledge management and primary care physician as soon as [...] SIGNATURE: DO Jimmie Helm DO 12/14/171941 Normal [facility] Magnesiumon 12-14-2017 Magnesium mass conc 1.9 mg/dL Normal 1.7-2.3 [facility] Comment on above: Performed By: #### N TBNP, CKCKMB #### [facility] [address] [place] [address] Troponin Ton 12-14-2017 Troponin T.cardiac mass conc ug/L Normal 0.000-0.02 9 [facility] Comment on above: Performed By: #### N TBNP, CKCKMB #### [facility] [address] [place] [address] XR CHEST 2V FRONTAL/LATon XR CHEST 2V [...] Other: . IMPRESSION: No acute radiographic abnormality. Washing Machine Installer: GEORGE Transcribe Date/Time: Dec 14 2017 3:44P Dictated by : WILLA VELASCO MD This examination was interpreted and the report reviewed and electronically signed by: WILLA VELASCO MD on Dec 14 2017 3:44PM EST [id number] Normal [facility] CBCon 12-04-2017 Erythrocyte distribution width Ratio (RBC) 13.1 % Normal 11.5-15.0 [facility] Comment on above: Performed By: #### C BCDIF, PT, PTT, CMP #### [facility] [address] [place] [address] Hematocrit Volume Fraction (Bld) 44.2 % Normal 36.0-46.0 [facility] Comment on above: Performed By: #### C BCDIF, PT, PTT, CMP #### [facility] [address] [place] [address] Hemoglobin mass conc (Bld) 14.8 g/dL Normal 11.5-15.5 [facility] Comment on above: Performed By: #### C BCDIF, PT, PTT, CMP #### [facility] [address] [place] [address] MCH Entitic mass (RBC) 27.5 pG Normal 26.0-34.0 [facility] Comment on above: Performed By: #### C BCDIF, PT, PTT, CMP #### [facility] [address] [place] [address] MCHC mass conc (RBC) 33.5 g/dL Normal 30.5-36.0 [facility] Comment on above: Performed By: #### C BCDIF, PT, PTT, CMP #### [facility] [address] [place], [place] [id number] MCV Entitic volume (RBC) 82.0 fL Normal 80.0-100.0 [facility] Comment on above: Performed By: #### C BCDIF, PT, PTT, CMP #### [facility] [address] [place], [place] [id number] Platelet mean volume Entitic volume (Bld) 10.1 fL Normal 9.0-12.7 [facility] Comment on above: Performed By: #### C BCDIF, PT, PTT, CMP #### [facility] [address] [phone] Platelets #/vol (Bld) 227 10*3/uL Normal 150-400 [facility] Comment on above: Performed By: #### C BCDIF, PT, PTT, CMP #### [facility] [address] [phone] RBC #/vol (Bld) 5.39 10*6/uL High 3.90-5.20 [facility] Comment on above: Performed By: #### C BCDIF, PT, PTT, CMP #### [facility] [address] [phone] WBC #/vol (Bld) 9.07 10*3/uL Normal 3.70-11.00 [facility] Comment on above: Performed By: #### C BCDIF, PT, PTT, CMP #### [facility] [address] [facility] [phone] CNCOon 12-04-2017 CNCO Letter Text December 04, 2017 Trenton Jackson [facility] [address] [facility] [address] Dear Ms. Jackson, The nurses and staff of [facility] hope this letter finds you feeling [...] free to contact me, Bety Alcaraz RN ([phone]) or email me at, Additionally, you will [...] participation and thank you for choosing the [facility] for your health needs. Sincerely, Nurse Professor Of Legal Studies: Bety Alcaraz RN ([phone]) [facility] Unit: 3 [facility] CONSULT PROGon 12-04-2017 Protein mass conc HNO ID: [id number] Author: Jevon Sherman Service: Clinical Cardiology Author [...] has anginal chest pain - transfer [facility] for viability study with MRI or PET, and consider CABG with BRUCE-LAD if there is evidence of viability - continue aspirin and statin - continue ACEI - continue metoprolol - smoking cessation ? SIGNATURE: Jevon Sherman MD PATIENT NAME: Trenton Jackson DATE: December 04, 2017 TIME: 2:26 PM PAGER/CONTACT #: Normal [facility] Comp Metabolic Panelon 12-04 Albumin mass conc 3.3 g/dL Low 3.9-4.9 [facility] Comment on above: Performed By: #### C BCDIF, PT, PTT, CMP #### [facility] [address] [place] [address] ALP enzyme act/vol 77 U/L Normal 32-117 [facility] Comment on above: Performed By: #### C BCDIF, PT, PTT, CMP #### [facility] [address] [place] [address] ALT enzyme act/vol 13 U/L Normal 7-38 [facility] Comment on above: Performed By: #### C BCDIF, PT, PTT, CMP #### [facility] [address] [place] [address] Anion gap molar conc 10 mmol/L Normal 9-18 [facility] Comment on above: Performed By: #### C BCDIF, PT, PTT, CMP #### [facility] [address] [place] [address] AST enzyme act/vol 15 U/L Normal 13-35 [facility] Comment on above: Performed By: #### C BCDIF, PT, PTT, CMP #### [facility] [address] [place] [address] Bilirubin mass conc 0.4 mg/dL Normal 0.2-1.3 [facility] Comment on above: Performed By: #### C BCDIF, PT, PTT, CMP #### [facility] [address] [phone] Calcium mass conc 8.7 mg/dL Normal 8.5-10.2 [facility] Comment on above: Performed By: #### C BCDIF, PT, PTT, CMP #### [facility] [address] Chloride molar conc 101 mmol/L Normal 97-105 [facility] Comment on above: Performed By: #### C BCDIF, PT, PTT, CMP #### [facility] [address] [address] CO2 molar conc 29 mmol/L Normal 22-30 [facility] Comment on above: Performed By: #### C BCDIF, PT, PTT, CMP #### [facility] [address] [address] Creatinine mass conc 0.66 mg/dL Normal 0.58-0.96 [facility] Comment on above: Performed By: #### C BCDIF, PT, PTT, CMP #### [facility] [address] [address] eGFR- Amer. >60 Normal [facility] Comment on above: Performed By: #### C BCDIF, PT, PTT, CMP #### [facility] [address] [place] [address] GFR/1.73 sq M predicted among non-blacks MDRD vol rate/area (S/P/Bld) mL/min/{1.73_m2} Normal [facility] Comment on above: Result Comment: eGFR [...] #### C BCDIF, PT, PTT, CMP #### [facility] [address] [address] Glucose mass conc 88 mg/dL Normal 74-99 [facility] Comment on above: Result Comment: The [place] Diabetes [employer] (ADA) provides guidance for cutoff [...] Standards of Medical Care in Diabetes 2016, [place] [employer]. Diabetes Care. 2016.39(Suppl 1). Performed By: #### C BCDIF, PT, PTT, CMP #### [facility] [address] [place] [address] Potassium molar conc 4.1 mmol/L Normal 3.7-5.1 [facility] Comment on above: Performed By: #### C BCDIF, PT, PTT, CMP #### [facility] [address] [address] Protein mass conc 5.9 g/dL Low 6.3-8.0 [facility] Comment on above: Performed By: #### C BCDIF, PT, PTT, CMP #### [facility] [address] [address] Sodium molar conc 140 mmol/L Normal 136-144 [facility] Comment on above: Performed By: #### C BCDIF, PT, PTT, CMP #### [facility] [address] [place], [place] [id number] Urea nitrogen mass conc 12 mg/dL Normal 7-21 [facility] Comment on above: Performed By: #### C BCDIF, PT, PTT, CMP #### [facility] [address] [place], [place] [id number] Magnesiumon 12-04-2017 Magnesium mass conc 1.8 mg/dL Normal 1.7-2.3 [facility] Comment on above: Performed By: #### C BCDIF, PT, PTT, CMP #### [facility] [address] [facility] [phone] NURSING PROGon 12-04-2017 Protein mass conc HNO ID: [id number] Author: Patricio AgudeloRn) CHAYITO Tate Service: Nursing Author Type: Registered Nurse Type: Nursing Progress Note Filed: 12/04/2017 10:43 PM Note Text: Nursing Progress Note Patient Name: Trenton Jackson [facility]/[id number] Daily Note: 1900: Assumed care of pt. [...] note was completed by: Patricio Tate RN [facility] Protein mass conc HNO ID: [id number] Author: Melissa AgudeloRn) CHAYITO Jeffries Service: Nursing Author Type: Registered Nurse Type: Nursing Progress Note Filed: 12/04/2017 3:11 PM Note Text: Nursing Progress Note Patient Name: Trenton Jackson [facility] Final air removed from right radial site. No bleeding noted. Bandaid applied. Report called to Jazzmine STRATTON on 3S. Pt transferred to floor on bed accomp by staff in stable cond. This note was completed by: Melissa Jeffries RN [facility] Protein mass conc HNO ID: [id number] Author: Brett AgudeloGonzalo Castorena RN Service: Nursing Author Type: Registered Nurse Type: Nursing Progress Note Filed: 12/04/2017 2:18 PM Note Text: Pt eating and drinking denies any complaints at this time. @1417 Report to Melissa STRATTON. [facility] Protein mass conc HNO ID: [id number] Author: Jazzmine AgudeloRn) CHAYITO Galvan Service: Nursing Author Type: Registered Nurse Type: Nursing Progress Note Filed: 12/04/2017 6:40 PM Note Text: Nursing Progress Note Patient Name: Trenton Jackson [facility] [place] [facility] Daily Note: 0730: Assumed care of pt. 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 We then advanced a [place] catheter over a [place] wire to the [...] 5. The patient will be transferred to [facility] for assessment of myocardial viability and consideration of revascularization of the LAD possibly with bypass grafting. Jevon Sherman M.D. Cardiovascular Medicine [id number] [facility] PROGRESSon 12-04-2017 Protein mass conc HNO ID: [id number] Author: Jevon Sherman Service: Clinical Cardiology Author [...] TIME: 11:14 AM The following are the [facility] Criteria for High Risk Catheterization: Patients with high-risk conditions listed above may require emergency catheter-based therapeutic interventions or open heart surgery. Hence, they shall undergo cardiac catheterization only in a catheterization laboratory that has open heart surgical support available on-site, (i.e., accessible from the catheterization laboratory or by [facility]). [facility] CASE MANAGEM HNO ID: [id number] Author: Iqra Solano) CHAYITO Webster Service: Case [...] 03, 2017 TIME: 11:44 AM PAGER/CONTACT #: [phone] Normal [facility] CBCon 12-03-2017 Erythrocyte distribution width Ratio (RBC) 13.2 % Normal 11.5-15.0 [facility] Comment on above: Performed By: #### C BCDIF, PT, PTT, CMP #### [facility] [address] [facility] [phone] Hematocrit Volume Fraction (Bld) 46.0 % Normal 36.0-46.0 [facility] Comment on above: Performed By: #### C BCDIF, PT, PTT, CMP #### [facility] [address] [place] [address] Hemoglobin mass conc (Bld) 15.3 g/dL Normal 11.5-15.5 [facility] Comment on above: Performed By: #### C BCDIF, PT, PTT, CMP #### [facility] [address] [facility] [phone] MCH Entitic mass (RBC) 27.4 pG Normal 26.0-34.0 [facility] Comment on above: Performed By: #### C BCDIF, PT, PTT, CMP #### [facility] [address] [place] [address] MCHC mass conc (RBC) 33.3 g/dL Normal 30.5-36.0 [facility] Comment on above: Performed By: #### C BCDIF, PT, PTT, CMP #### [facility] [address] [facility] [phone] MCV Entitic volume (RBC) 82.4 fL Normal 80.0-100.0 [facility] Comment on above: Performed By: #### C BCDIF, PT, PTT, CMP #### [facility] [address] [place], [place] [address] Platelet mean volume Entitic volume (Bld) 10.1 fL Normal 9.0-12.7 [facility] Comment on above: Performed By: #### C BCDIF, PT, PTT, CMP #### [facility] [address] [facility] [phone] Platelets #/vol (Bld) 224 10*3/uL Normal 150-400 [facility] Comment on above: Performed By: #### C BCDIF, PT, PTT, CMP #### [facility] [address] [facility] [phone] RBC #/vol (Bld) 5.58 10*6/uL High 3.90-5.20 [facility] Comment on above: Performed By: #### C BCDIF, PT, PTT, CMP #### [facility] [address] [facility] [phone] WBC #/vol (Bld) 9.13 10*3/uL Normal 3.70-11.00 [facility] Comment on above: Performed By: #### C BCDIF, PT, PTT, CMP #### [facility] [address] [facility] [phone] CONSULT PROGon 12-03-2017 Protein mass conc HNO ID: [id number] Author: Jevon Sherman Service: Clinical Cardiology Author [...] 2017 TIME: 5:25 PM PAGER/CONTACT #: Normal [facility] Comp Metabolic Panelon 12-03 Albumin mass conc 3.3 g/dL Low 3.9-4.9 [facility] Comment on above: Performed By: #### C BCDIF, PT, PTT, CMP #### [facility] [address] [address] ALP enzyme act/vol 83 U/L Normal 32-117 [facility] Comment on above: Performed By: #### C BCDIF, PT, PTT, CMP #### [facility] [address] [address] ALT enzyme act/vol 13 U/L Normal 7-38 [facility] Comment on above: Performed By: #### C BCDIF, PT, PTT, CMP #### [facility] [address] [address] Anion gap molar conc 10 mmol/L Normal 9-18 [facility] Comment on above: Performed By: #### C BCDIF, PT, PTT, CMP #### [facility] [address] [address] AST enzyme act/vol 15 U/L Normal 13-35 [facility] Comment on above: Performed By: #### C BCDIF, PT, PTT, CMP #### [facility] [address] [place] [address] Bilirubin mass conc 0.5 mg/dL Normal 0.2-1.3 [facility] Comment on above: Performed By: #### C BCDIF, PT, PTT, CMP #### [facility] [address] [place] [address] Calcium mass conc 9.0 mg/dL Normal 8.5-10.2 [facility] Comment on above: Performed By: #### C BCDIF, PT, PTT, CMP #### [facility] [address] [place] [address] Chloride molar conc 99 mmol/L Normal 97-105 [facility] Comment on above: Performed By: #### C BCDIF, PT, PTT, CMP #### [facility] [address] [place] [address] CO2 molar conc 30 mmol/L Normal 22-30 [facility] Comment on above: Performed By: #### C BCDIF, PT, PTT, CMP #### [facility] [address] [place] [address] Creatinine mass conc 0.70 mg/dL Normal 0.58-0.96 [facility] Comment on above: Performed By: #### C BCDIF, PT, PTT, CMP #### [facility] [address] [place] [address] eGFR- Amer. >60 Normal [facility] Comment on above: Performed By: #### C BCDIF, PT, PTT, CMP #### [facility] [address] [place] [address] GFR/1.73 sq M predicted among non-blacks MDRD vol rate/area (S/P/Bld) mL/min/{1.73_m2} Normal [facility] Comment on above: Result Comment: eGFR [...] #### C BCDIF, PT, PTT, CMP #### [facility] [address] [place] [address] Glucose mass conc 76 mg/dL Normal 74-99 [facility] Comment on above: Result Comment: The [place] Diabetes Association (ADA) provides guidance for cutoff [...] Standards of Medical Care in Diabetes 2016, [place] [employer]. Diabetes Care. 2016.39(Suppl 1). Performed By: #### C BCDIF, PT, PTT, CMP #### [facility] [address] [place] [address] Potassium molar conc 4.3 mmol/L Normal 3.7-5.1 [facility] Comment on above: Performed By: #### C BCDIF, PT, PTT, CMP #### [facility] [address] [place] [address] Protein mass conc 6.0 g/dL Low 6.3-8.0 [facility] Comment on above: Performed By: #### C BCDIF, PT, PTT, CMP #### [facility] [address] [place] [address] Sodium molar conc 139 mmol/L Normal 136-144 [facility] Comment on above: Performed By: #### C BCDIF, PT, PTT, CMP #### [facility] [address] [place] [address] Urea nitrogen mass conc 11 mg/dL Normal 7-21 [facility] Comment on above: Performed By: #### C BCDIF, PT, PTT, CMP #### [facility] [address] [place] [address] Magnesiumon 12-03-2017 Magnesium mass conc 1.8 mg/dL Normal 1.7-2.3 [facility] Comment on above: Performed By: #### C BCDIF, PT, PTT, CMP #### [facility] [address] [facility] [phone] NM CARDIAC PERF STRESS/EXERC ISEon 12-03-2017 NM [...] 60 minutes later. See administered doses below. [facility] Date of service: 12/03/2017 11:12:42 AM [...] ST segment response. Stress complications: none. Final Washing Machine Installer: JEREMIAS Transcribe Date/Time: Dec 03 2017 11:12A Dictated by : JEVON SHERMAN MD This examination was interpreted and the report reviewed and electronically signed by: JEVON SHERMAN MD on Dec 03 2017 5:11PM EST [id number] [facility] NUCLEAR STRESS LEXISCAN (CAR D)on 12-03-2017 NUCLEAR STRESS LEXISCAN (CARD) NAME : TRENTON JACKSON PID : [id number] : 1970 Gender : Female Race : ORD : [id number] Procedure Date : Dec 03 2017 12:15:58 Edit Date : Dec 17 2017 14:02:26 Conclusions:PLEASE REFER TO IMAGING SECTION IN [facility] FOR COMPLETE INTERPRETATION OF STRESS TEST AND MYOCARDIAL PERFUSION IMAGING Protocol Name : LEXISCAN Time In Exercise Phase : 00:06:00 Max. Systolic BP : 137 mmHg Max Diastolic BP : 70 mmHg Max Heart Rate : 118 BPM Max Predicted Heart Rate : 174 BPM Recovery ECG Response (OLD) : Reason For Termination : End of Protocol Test Reason : Chest Pain Location :[id number] Overread By : JEVON SHERMAN M.D. Edited By : Violet Mcnulty Referred By : , [facility] : [facility]UCLE[facility]ESS [facility] EXERCISE (CARD)on 12-03-2017 NUCLEAR STRESS TEST EXERCISE (CARD) NAME : TRENTON JACKSON PID : [id number] : 1970 Gender : Female Race : ORD : [id number] Procedure Date : Dec 03 2017 11:56:57 Edit Date : Dec 17 2017 14:02:19 Conclusions:PLEASE REFER TO IMAGING SECTION IN [facility] FOR COMPLETE INTERPRETATION OF STRESS TEST AND [...] Treadmill Test Reason : Chest Pain Location :[id number] Overread By : JEVON SHERMAN M.D. Edited By : Violet Mcnulty Referred By : , Acquired [facility] : [facility] NUR[facility]on 12-03-2017 Protein mass conc HNO ID: [id number] Author: Barb AgudeloRn) CHAYITO Ramey Service: (none) Author Type: Registered Nurse Type: Nursing Progress Note Filed: 12/03/2017 9:59 PM Note Text: Nursing Progress Note Patient Name: Trenton Jackson Patient Location: [facility]-0304/WD-[id number] Daily Note: Namrata- Dr Nava updated on pt medication request and HS blood sugar. New orders received. This note was completed by: Barb Ramey RN [facility] Protein mass conc HNO ID: [id number] Author: Jazzmine (Rn) CHAYITO Galvan Service: Nursing Author Type: Registered Nurse Type: Nursing Progress Note Filed: 12/03/2017 6:59 PM Note Text: Nursing Progress Note Patient Name: Trenton Jackson Patient Location: [facility]4/LR-[id number]-2720-2 Daily Note: 0700: Assumed care of pt. [...] extremely anxious. This note was completed by: Jazzimne Galvan RN [facility] PROCEDUREon 12-03-2017 Protein mass conc HNO ID: [id number] Author: Jevon Sherman Service: Clinical Cardiology Author Type: Physician Type: Procedures Filed: 12/10/2017 1:16 AM Note Text: [facility]- Stress Test TRENTON JACKSON : 1970 AGE: 47 SEX: F [id number]: [facility] LOCATION: [id number] ATTENDING PHYSICIAN: Dex Fernandez M.D. DATE OF [...] nuclear imaging. Jevon Sherman M.D. Cardiovascular Medicine MK:[id number] Normal [facility] PROGRESSon 12-03-2017 Protein mass conc HNO ID: [id number] Author: Dex Handy Service: Hospital Medicine Author Type: Physician Type: Progress Notes Filed: 12/03/2017 9:03 PM Note Text: HOSPITAL MEDICINE PROGRESS NOTE Name: Trenton Jackson SERVICE DATE: 12/03/2017 SERVICE TIME: 8:36 PM LOCATION / ROOM: [facility]/JL-[id number] Hospital Medicine/Primary Attending: Dex Handy MD NIGHT COVERAGE BETWEEN 5.30P-7.30A Page 10708 ASSESSMENT AND PLAN Active Hospital Problems Diagnosis [...] Patient might need to be transferred to [facility] for further work up - pending [...] December 03, 2017 TIME: 8:36 PM Normal [facility] Sed Rate [place]on 2017 Sed [facility] Unable to assay. No specimen received. Normal 0-20 [facility] Comment on above: Performed By: #### C BCDIF, PT, PTT, CMP #### [facility] [address] [facility] [phone] C-Reactive Proteinon 018 CRP mass conc 0.2 mg/dL Normal <0.9 [facility] Comment on above: Performed By: #### C BCDIF, PT, PTT, CMP #### [facility] [address] [facility] [phone] CBCon 12-02-2017 Erythrocyte distribution width Ratio (RBC) 13.4 % Normal 11.5-15.0 [facility] Comment on above: Performed By: #### C BCDIF, PT, PTT, CMP #### [facility] [address] [place] [address] Hematocrit Volume Fraction (Bld) 48.7 % High 36.0-46.0 [facility] Comment on above: Performed By: #### C BCDIF, PT, PTT, CMP #### [facility] [address] [facility] [phone] Hemoglobin mass conc (Bld) 16.9 g/dL High 11.5-15.5 [facility] Comment on above: Performed By: #### C BCDIF, PT, PTT, CMP #### [facility] [address] [phone] MCH Entitic mass (RBC) 27.6 pG Normal 26.0-34.0 [facility] Comment on above: Performed By: #### C BCDIF, PT, PTT, CMP #### [facility] [address] [place], [place] [address] MCHC mass conc (RBC) 34.7 g/dL Normal 30.5-36.0 [facility] Comment on above: Performed By: #### C BCDIF, PT, PTT, CMP #### [facility] [address] [place] [address] MCV Entitic volume (RBC) 79.4 fL Low 80.0-100.0 [facility] Comment on above: Performed By: #### C BCDIF, PT, PTT, CMP #### [facility] [address] [place] [address] Platelet mean volume Entitic volume (Bld) 10.7 fL Normal 9.0-12.7 [facility] Comment on above: Performed By: #### C BCDIF, PT, PTT, CMP #### [facility] [address] [place] [address] Platelets #/vol (Bld) 215 10*3/uL Normal 150-400 [facility] Comment on above: Performed By: #### C BCDIF, PT, PTT, CMP #### [facility] [address] [place] [address] RBC #/vol (Bld) 6.13 10*6/uL High 3.90-5.20 [facility] Comment on above: Performed By: #### C BCDIF, PT, PTT, CMP #### [facility] [address] [place] [address] WBC #/vol (Bld) 12.44 10*3/uL High 3.70-11.00 [facility] Comment on above: Performed By: #### C BCDIF, PT, PTT, CMP #### [facility] [address] [place], [place] [address] CONSULT PROGon 12-02-2017 Protein mass conc HNO ID: [id number] Author: Jevon Sherman Service: Clinical Cardiology Author [...] 2017 TIME: 4:49 PM PAGER/CONTACT #: Normal [facility] Comp Metabolic Panelon 12-02 Albumin mass conc 3.2 g/dL Low 3.9-4.9 [facility] Comment on above: Performed By: #### C BCDIF, PT, PTT, CMP #### [facility] [address] [place] [address] ALP enzyme act/vol 92 U/L Normal 32-117 [facility] Comment on above: Performed By: #### C BCDIF, PT, PTT, CMP #### [facility] [address] [place] [address] ALT enzyme act/vol 14 U/L Normal 7-38 [facility] Comment on above: Performed By: #### C BCDIF, PT, PTT, CMP #### [facility] [address] [place] [address] Anion gap molar conc 13 mmol/L Normal 9-18 [facility] Comment on above: Performed By: #### C BCDIF, PT, PTT, CMP #### [facility] [address] [place], [place] [id number] AST enzyme act/vol 23 U/L Normal 13-35 [facility] Comment on above: Result Comment: Resu lts may be falsely increased due to interference by hemolysis. Suggest reorder as clinically indicated. Performed By: #### C BCDIF, PT, PTT, CMP #### [facility] [address] [place] [address] Bilirubin mass conc 0.7 mg/dL Normal 0.2-1.3 [facility] Comment on above: Performed By: #### C BCDIF, PT, PTT, CMP #### [facility] [address] [place] [address] Calcium mass conc 9.2 mg/dL Normal 8.5-10.2 [facility] Comment on above: Performed By: #### C BCDIF, PT, PTT, CMP #### [facility] [address] [place] [address] Chloride molar conc 99 mmol/L Normal 97-105 [facility] Comment on above: Performed By: #### C BCDIF, PT, PTT, CMP #### [facility] [address] [place] [address] CO2 molar conc 23 mmol/L Normal 22-30 [facility] Comment on above: Performed By: #### C BCDIF, PT, PTT, CMP #### [facility] [address] [place] [address] Creatinine mass conc 0.61 mg/dL Normal 0.58-0.96 [facility] Comment on above: Performed By: #### C BCDIF, PT, PTT, CMP #### [facility] [address] [place] [address] eGFR- Amer. >60 Normal [facility] Comment on above: Performed By: #### C BCDIF, PT, PTT, CMP #### [facility] [address] [place] [address] GFR/1.73 sq M predicted among non-blacks MDRD vol rate/area (S/P/Bld) mL/min/{1.73_m2} Normal [facility] Comment on above: Result Comment: eGFR [...] #### C BCDIF, PT, PTT, CMP #### [facility] [address] [place] [address] Glucose mass conc 185 mg/dL High 74-99 [facility] Comment on above: Result Comment: The [place] Diabetes Association (ADA) provides guidance for cutoff [...] Standards of Medical Care in Diabetes 2016, [place] [employer]. Diabetes Care. 2016.39(Suppl 1). Performed By: #### C BCDIF, PT, PTT, CMP #### [facility] [address] [place] [address] Potassium molar conc 4.8 mmol/L Normal 3.7-5.1 [facility] Comment on above: Performed By: #### C BCDIF, PT, PTT, CMP #### [facility] [address] [place], [place] [id number] Protein mass conc 6.2 g/dL Low 6.3-8.0 [facility] Comment on above: Performed By: #### C BCDIF, PT, PTT, CMP #### [facility] [address] [place], [place] [phone] Sodium molar conc 135 mmol/L Low 136-144 [facility] Comment on above: Performed By: #### C BCDIF, PT, PTT, CMP #### [facility] [address] [place] [address] Urea nitrogen mass conc 8 mg/dL Normal 7-21 [facility] Comment on above: Performed By: #### C BCDIF, PT, PTT, CMP #### [facility] [address] [place] [address] Magnesiumon 12-02-2017 Magnesium mass conc 1.9 mg/dL Normal 1.7-2.3 [facility] Comment on above: Performed By: #### C BCDIF, PT, PTT, CMP #### [facility] [address] [facility] [phone] NURSING PROGon 12-02-2017 Protein mass conc HNO ID: [id number] Author: Flora (Rn) Avery, RN Service: (none) Author Type: Registered Nurse Type: Nursing Progress Note Filed: 12/03/2017 4:25 AM Note Text: Nursing Progress Note Patient Name: Trenton Jackson Patient Location: [facility]/TS-[id number]-[id number] Daily Note:2010-Pt on phone, requesting pain med, [...] note was completed by: Flora Varela, CHAYITO [facility] Protein mass conc HNO ID: [id number] Author: Sara AgudeloRn) Elizabeth, RN Service: Nursing Author Type: Registered Nurse Type: Nursing Progress Note Filed: 12/02/2017 6:26 PM Note Text: Nursing Progress Note Patient Name: Trenton Jackson Patient Location: [facility]/DA-[id number]-7769- Daily Note:1555 - Assumed care of pt. [...] note was completed by: Sara Johnson RN [facility] Protein mass conc HNO ID: [id number] Author: Jonna (Rn) CHAYITO Boothe Service: Nursing Author Type: Registered Nurse Type: Nursing Progress Note Filed: 12/02/2017 2:09 PM Note Text: Nursing Progress Note Patient Name: Trenton Jackson Patient Location: [facility]4/VZ-[id number]-9934-2 Daily Note: 0715: Assumed care of patient. [...] note was completed by: Jonna Boothe RN [facility] Protein mass conc HNO ID: [id number] Author: Patricio Solano) CHAYITO Tate Service: Nursing Author Type: Registered Nurse Type: Nursing Progress Note Filed: 12/02/2017 4:59 AM Note Text: Nursing Progress Note Patient Name: Trenton Jackson Patient Location: [facility]4/CI-6K-1513-2 Event(s) / Intervention Note: The patient was [...] note was completed by: Patricio Tate RN [facility] PROGRESSon 12-02-2017 Protein mass conc HNO ID: [id number] Author: Lisa Bocanegra Service: Hospital Medicine Author [...] 2156 -- 11/30/17 2200 pneumatic compression stockings (nv,oh) VTE Prophylaxis: VTE prophylaxis appropriate SIGNATURE: Lisa Bocanegra MD PATIENT NAME: Trenton Jackson DATE: December 02, 2017 TIME: 1:07 PM PAGER: [phone] Normal [facility] Procalcitoninon 12-02-2017 Protein mass conc g/dL Normal <0.09 [facility] Comment on above: Result Comment: For a guided interpretation of test results, please visit the Change in Procalcitonin Calculator, [email or web address]. Performed By: #### C BCDIF, PT, PTT, CMP #### [facility] [address] [facility] [phone] Sed Rate Westergrenon 2017 Sed Rate Westergren Unable to assay. Spe cimen grossly hemolyzed. Specimen may have been stored or transported frozen. Normal 0-20 [facility] Comment on above: Result Comment: Acco unt Credited Called to RW [id number] 12.02.17 NB Performed By: #### C BCDIF, PT, PTT, CMP #### [facility] [address] [facility] [phone] CASE MGT INIT Ana 2017 CASE MGT INIT GAVIN HNO ID: [id number] Author: Bety Lozada (Rn) CHAYITO Dempsey Service: Case Management Author Type: Registered Nurse Type: Care Mgt Initial Assessment Filed: 12/01/2017 9:52 AM Note Text: CARE MANAGEMENT: ASSESSMENT AND DISCHARGE PLAN SERVICE DATE: 12/01/2017 SERVICE TIME: 9:48 AM PRIMARY CARE PHYSICIAN: Uziel Conteh MD Confirmed. Likes am any day for follow ups. ADMISSION STATUS: Observation Needs Prior to Discharge: To Be Determined MEDICAL: Patient/Supervisor Receiving And Processing Stated Goals: To return home to life as it was Health Insurance: [employer] [place] [facility] Issues Impacting Discharge Plan: DM, HTN Last Admission Date: none Is this Within the Past 30 days? No Advance Directive: Current Advance Directive: None College Coach Assisted with AD Completion: Yes Action: Education [...] None Has the Patient Been in a Detention Facility in the Past 30 days? 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 Yes , uses [facility] [employer] Concerns: In the Last Month, Have [...] 01, 2017 TIME: 9:48 AM PAGER/CONTACT #: [phone] [facility] CONSULTon 12-01-2017 CONSULT HNO ID: [id number] Author: Jevon Sherman Service: Clinical Cardiology Author [...] associated with exertion. In the ER at [facility] yesterday she had no ischemic changes on ECG, NSR, and negative Tn. She has a history of DM, is an active smoker, and had an abnormal echocardiogram last year showing LVEF 30% with an LAD territory wall motion abnormality with a dyskinetic apex. She has not seen a director of knowledge management about this problem and was unaware of [...] 2017 TIME: 10:17 AM PAGER/CONTACT #: Normal [facility] Lipid Panel, [place] 018 Cholesterol in HDL mass conc 31 mg/dL Low >39 [facility] Comment on above: Result Comment: 40-5 9 mg/dL, Acceptable >59 mg/dL, High: Negative risk factor for coronary heart disease <40 mg/dL, Low: Positive risk factor for coronary heart disease Performed By: #### C BCDIF, PT, PTT, CMP #### [facility] [address] [facility] [phone] Cholesterol in LDL mass conc 110 mg/dL High <100 [facility] Comment on above: Result Comment: <100 mg/dL, Optimal 100-129 mg/dL, Near optimal/above optimal 130-159 mg/dL, Borderline high 160-189 mg/dL, High >189 mg/dL, Very high Secondary prevention optimal LDL Cholesterol levels are recommended to be < 70 mg/dL Performed By: #### C BCDIF, PT, PTT, CMP #### [facility] [address] [facility] [phone] Cholesterol mass conc 177 mg/dL Normal <200 [facility] Comment on above: Result Comment: <200 mg/dL, Desirable 200-239 mg/dL, Borderline high >239 mg/dL, High Performed By: #### C BCDIF, PT, PTT, CMP #### [facility] [address] [facility] [phone] Fasting Time Unknown Normal [facility] Comment on above: Performed By: #### C BCDIF, PT, PTT, CMP #### [facility] [address] [address] LDL:HDL Ratio 3.55 High <2.54 [facility] Comment on above: Result Comment: Refe cinda: 1. National Cholesterol Education Program ATP III Guideline At-A-Glance Quick Desk Reference: National Heart, Lung, and Blood [place]. National Institutes of Health. 2001: NIH Publication No. 01-3305. 2. An International Atherosclerosis Society position paper: global recommendations for the management of dyslipidemia: executive summary, Atherosclerosis. 2014: 232(2):410-413. Performed By: #### C BCDIF, PT, PTT, CMP #### [facility] [address] [address] Non HDL Cholesterol 146 mg/dL High <130 [facility] Comment on above: Result Comment: <130 mg/dL, Optimal 130-159 mg/dL, Near optimal/above optimal 160-189 mg/dL, Borderline high 190-219 mg/dL, High >219 mg/dL, Very high Secondary prevention optimal non HDL Cholesterol levels are recommended to be < 100 mg/dL Performed By: #### C BCDIF, PT, PTT, CMP #### [facility] [address] [place] [address] TC:HDL Ratio 5.71 High <5.10 [facility] Comment on above: Performed By: #### C BCDIF, PT, PTT, CMP #### [facility] [address] [address] Triglyceride mass conc 179 mg/dL High <150 [facility] Comment on above: Result Comment: <150 mg/dL, Normal 150-199 mg/dL, Borderline high 200-499 mg/dL, High >499 mg/dL, Very high Performed By: #### C BCDIF, PT, PTT, CMP #### [facility] [address] [place] [address] VLDL Cholesterol 36 mg/dL High <30 [facility] Comment on above: Performed By: #### C BCDIF, PT, PTT, CMP #### [facility] [address] [place] [address] NURSING PROGon 12-01-2017 Protein mass conc HNO ID: [id number] Author: Patricio AgudeloRn) Lea, CHAYITO Service: Nursing Author Type: Registered Nurse Type: Nursing Progress Note Filed: 12/02/2017 6:32 AM Note Text: Nursing Progress Note Patient Name: Trenton Jackson Patient Location: [place]/[id number]-[id number]-[id number] Daily Note: 1915: Assumed care of pt. [...] observed sweating profusely. Glucose 84, normally 200's. [place] juice and johnson crackers given. Glucose up to 149. Pt feeling slightly better. Will continue to monitor. 0500: Pt observed sleeping. Unable to obtain oral or axillary temp to this point. Will obtain rectal temp. Call light within reach. This note was completed by: Patricio Tate, RN [facility] Protein mass conc HNO ID: [id number] Author: Jonna AgudeloRn) CHAYITO Boothe Service: Nursing Author Type: Registered Nurse Type: Nursing Progress Note Filed: 12/01/2017 5:58 PM Note Text: Nursing Progress Note Patient Name: Trenton Jackson Patient Location: [place]/[id number]- Daily Note: 0715: Assumed care of patient. [...] note was completed by: Jonna Boothe RN [facility] Protein mass conc HNO ID: [id number] Author: Patricio (Rn) CHAYITO Tate Service: Nursing Author Type: Registered Nurse Type: Nursing Progress Note Filed: 12/01/2017 5:01 AM Note Text: Nursing Progress Note Patient Name: Trenton Jackson [facility]/YT-[id number]-1143-2 Daily Note: 2200: Assumed care of pt. [...] note was completed by: Patricio Tate RN [facility] PROGRESSon 12-01-2017 Protein mass conc HNO ID: [id number] Author: Lisa Bocanegra Service: Hospital Medicine Author [...] December 01, 2017 TIME: 2:46 PM PAGER: [phone] Normal [facility] Troponin Ton 12-01-2017 Troponin T.cardiac mass conc ug/L Normal 0.000-0.[address] [place] [address] Comment on above: Performed By: #### T NT ####[facility] [phone] Troponin T.cardiac mass conc ug/L Normal 0.000-0.[address] [place] [address] Comment on above: Performed By: #### T NT ####[facility] [address] [place] [phone] APTTon 11-30-2017 aPTT Coag time (Bld) 26.7 s Normal 23.0-32.4 [facility] Comment on above: Result Comment: Unfr actionated [...] laboratory APTT reagent in use throughout the [facility]. Performed By: #### C BCDIF, PT, PTT, CMP #### [facility] [address] CBC and Differentialon 11-30 Abs Baso 0.05 k/uL Normal <0.11 [facility] Comment on above: Performed By: #### C BCDIF, PT, PTT, CMP #### [facility] [address] [place] [address] Abs Carroll 0.56 k/uL Normal <0.87 [facility] Comment on above: Performed By: #### C BCDIF, PT, PTT, CMP #### [facility] [address] [place] [address] Abs Neut 5.45 k/uL Normal 1.45-7.50 [facility] Comment on above: Performed By: #### C BCDIF, PT, PTT, CMP #### [facility] [address] [place] [address] Basophils/100 WBC (Bld) 0.6 % Normal [facility] Comment on above: Performed By: #### C BCDIF, PT, PTT, CMP #### [facility] [address] [place] [address] Eosinophils #/vol (Bld) 0.13 10*3/uL Normal <0.46 [facility] Comment on above: Performed By: #### C BCDIF, PT, PTT, CMP #### [facility] [address] [place] [address] Eosinophils/100 WBC (Bld) 1.4 % Normal [facility] Comment on above: Performed By: #### C BCDIF, PT, PTT, CMP #### [facility] [address] [place] [address] Erythrocyte distribution width Ratio (RBC) 13.3 % Normal 11.5-15.0 [facility] Comment on above: Performed By: #### C BCDIF, PT, PTT, CMP #### [facility] [address] [place] [address] Hematocrit Volume Fraction (Bld) 46.8 % High 36.0-46.0 [facility] Comment on above: Performed By: #### C BCDIF, PT, PTT, CMP #### [facility] [address] [place], [place] [id number] Hemoglobin mass conc (Bld) 16.2 g/dL High 11.5-15.5 [facility] Comment on above: Performed By: #### C BCDIF, PT, PTT, CMP #### [facility] [address] [place] [address] Lymphocytes #/vol (Bld) 2.83 10*3/uL Normal 1.00-4.00 [facility] Comment on above: Performed By: #### C BCDIF, PT, PTT, CMP #### [facility] [address] [place] [address] Lymphocytes/100 WBC (Bld) 31.4 % Normal [facility] Comment on above: Performed By: #### C BCDIF, PT, PTT, CMP #### [facility] [address] [place] [address] MCH Entitic mass (RBC) 27.8 pG Normal 26.0-34.0 [facility] Comment on above: Performed By: #### C BCDIF, PT, PTT, CMP #### [facility] [address] [place] [address] MCHC mass conc (RBC) 34.6 g/dL Normal 30.5-36.0 [facility] Comment on above: Performed By: #### C BCDIF, PT, PTT, CMP #### [facility] [address] [place] [address] MCV Entitic volume (RBC) 80.4 fL Normal 80.0-100.0 [facility] Comment on above: Performed By: #### C BCDIF, PT, PTT, CMP #### [facility] [address] [place] [address] Monocytes/100 WBC (Bld) 6.2 % Normal [facility] Comment on above: Performed By: #### C BCDIF, PT, PTT, CMP #### [facility] [address] [place] [address] Neutrophils/100 WBC (Bld) 60.4 % Normal [facility] Comment on above: Performed By: #### C BCDIF, PT, PTT, CMP #### [facility] [address] [place] [address] Platelet mean volume Entitic volume (Bld) 9.9 fL Normal 9.0-12.7 [facility] Comment on above: Performed By: #### C BCDIF, PT, PTT, CMP #### [facility] [address] [place] [address] Platelets #/vol (Bld) 247 10*3/uL Normal 150-400 [facility] Comment on above: Performed By: #### C BCDIF, PT, PTT, CMP #### [facility] [address] [place] [address] RBC #/vol (Bld) 5.82 10*6/uL High 3.90-5.20 [facility] Comment on above: Performed By: #### C BCDIF, PT, PTT, CMP #### [facility] [address] [place] [address] WBC #/vol (Bld) 9.02 10*3/uL Normal 3.70-11.00 [facility] Comment on above: Performed By: #### C BCDIF, PT, PTT, CMP #### [facility] [address] [place] [address] CK, Total and CKMBon 018 CK enzyme act/vol 41 U/L Low 42-196 [facility] Comment on above: Performed By: #### N TBNP, CKCKMB #### [facility] [address] [place] [address] CK MB % CK MB % not reported with CK <100 U/L. Normal 0.0-4.0 [facility] Comment on above: Performed By: #### N TBNP, CKCKMB #### [facility] [address] [place] [address] MB 1.7 ng/mL Normal <4.3 [facility] Comment on above: Performed By: #### N TBNP, CKCKMB #### [facility] [address] [place] [address] Comp Metabolic Panelon 11-30 Albumin mass conc 3.5 g/dL Low 3.9-4.9 [facility] Comment on above: Performed By: #### C BCDIF, PT, PTT, CMP #### [facility] [address] [place] [address] ALP enzyme act/vol 97 U/L Normal 32-117 [facility] Comment on above: Performed By: #### C BCDIF, PT, PTT, CMP #### [facility] [address] [place] [address] ALT enzyme act/vol 17 U/L Normal 7-38 [facility] Comment on above: Performed By: #### C BCDIF, PT, PTT, CMP #### [facility] [address] [address] Anion gap molar conc 12 mmol/L Normal 9-18 [facility] Comment on above: Performed By: #### C BCDIF, PT, PTT, CMP #### [facility] [address] [address] AST enzyme act/vol 26 U/L Normal 13-35 [facility] Comment on above: Performed By: #### C BCDIF, PT, PTT, CMP #### [facility] [address] [place] [address] Bilirubin mass conc 0.7 mg/dL Normal 0.2-1.3 [facility] Comment on above: Performed By: #### C BCDIF, PT, PTT, CMP #### [facility] [address] [place] [address] Calcium mass conc 8.5 mg/dL Normal 8.5-10.2 [facility] Comment on above: Performed By: #### C BCDIF, PT, PTT, CMP #### [facility] [address] [address] Chloride molar conc 102 mmol/L Normal 97-105 [facility] Comment on above: Performed By: #### C BCDIF, PT, PTT, CMP #### [facility] [address] [place] [address] CO2 molar conc 23 mmol/L Normal 22-30 [facility] Comment on above: Performed By: #### C BCDIF, PT, PTT, CMP #### [facility] [address] [address] Creatinine mass conc 0.61 mg/dL Normal 0.58-0.96 [facility] Comment on above: Performed By: #### C BCDIF, PT, PTT, CMP #### [facility] [address] [facility] [phone] eGFR- Amer. >60 Normal [facility] Comment on above: Performed By: #### C BCDIF, PT, PTT, CMP #### [facility] [address] [facility] [phone] GFR/1.73 sq M predicted among non-blacks MDRD vol rate/area (S/P/Bld) mL/min/{1.73_m2} Normal [facility] Comment on above: Result Comment: eGFR [...] #### C BCDIF, PT, PTT, CMP #### [facility] [address] [facility] [phone] Glucose mass conc 260 mg/dL High 74-99 [facility] Comment on above: Result Comment: The [place] Diabetes Association (ADA) provides guidance for cutoff [...] Standards of Medical Care in Diabetes 2016, [place] [employer]. Diabetes Care. 2016.39(Suppl 1). Performed By: #### C BCDIF, PT, PTT, CMP #### [facility] [address] [facility] [phone] Potassium molar conc 4.1 mmol/L Normal 3.7-5.1 [facility] Comment on above: Performed By: #### C BCDIF, PT, PTT, CMP #### [facility] [address] [facility] [phone] Protein mass conc 6.5 g/dL Normal 6.3-8.0 [facility] Comment on above: Performed By: #### C BCDIF, PT, PTT, CMP #### [facility] [address] [facility] [phone] Sodium molar conc 137 mmol/L Normal 136-144 [facility] Comment on above: Performed By: #### C BCDIF, PT, PTT, CMP #### [facility] [address] [facility] [phone] Urea nitrogen mass conc 5 mg/dL Low 7-21 [facility] Comment on above: Performed By: #### C BCDIF, PT, PTT, CMP #### [facility] [address] [facility] [phone] ED NOTEon 11-30-2017 ED NOTE HNO ID: [id number] Author: Sara Solano) CHAYITO Bryson Service: Nursing Author Type: Registered Nurse Type: ED Notes Filed: 11/30/2017 9:26 PM Note Text: Report called to Patricio on 3S Normal [facility] ED NOTE HNO ID: [id number] Author: Sara Solano) CHAYITO Bryson Service: Nursing Author Type: Registered Nurse Type: ED Notes Filed: 11/30/2017 7:18 PM Note Text: Pt reports no relief of chest pain with nitro. SBP 125 to 109. [facility] ED NOTE HNO ID: [id number] Author: Sara Solano) CHAYITO Bryson Service: Nursing Author Type: Registered Nurse Type: ED Notes Filed: 11/30/2017 6:45 PM Note Text: Pt presents to the ER tearful about being scared of chest pain she is having. Onset was 0200 this a.m. She was seen at [facility] ER earlier today and advised to be admitted for observation. Pt states she wanted to drive herself in after settling family arrangements. She indicates mid-sternal pain that is stabbing, aching, sharp, dull, and pressure all at the same time. She was given 4 baby ASA and morphine at [facility], per pt. Medic at the bedside to lab and line. [facility] ED NOTE HNO ID: [id number] Author: Evelyne AgudeloRn) CHAYITO Puga Service: (none) Author Type: Registered Nurse Type: ED Notes Filed: 11/30/2017 6:13 PM Note Text: Pt presents to ED with c/o chest pain. Pt explains she was seen at [facility] ED earlier today and Ed wanted to transfer her to [place] for obs but refused at that time [facility] ED PROV NOTEon 11-30-2017 Protein mass conc HNO ID: [id number] Author: Rafy Guallpa) Mao ROBLEDO Service: (none) Author Type: Physician Color Control Supervisor Type: ED Provider Notes Filed: 11/30/2017 9:05 PM Note Text: ED Provider Note Patient Name: Trenton Jackson SERVICE DATE: 11/30/17 History Patient presents with: Chest Pain ca HPI: 47-year-old female with a history of diabetes, hyperlipidemia, hypertension, psychiatric disorder, diverticulitis, ejection fraction of 35 and 35% presents to the emergency department for evaluation of chest pain. The patient was in [facility] ED earlier and was seen and evaluated [...] Abs Lymph 2.83 1.00 - 4.00 k/uL Carroll% 6.2 % Abs Carroll 0.56 <0.87 k/uL Eosin% 1.4 % Abs [...] Other: No acute osseous abnormality is identified. Washing Machine Installer: PSCB Transcribe Date/Time: Nov 30 2017 7:15P [...] of the patient and have reviewed the PA/MOSAIC TECHNICIAN note. My jones findings include: History - Ms. Jackson is a 47 yo F w/ h/o HTN and hyperlipidemia and DM and smoking, likely LA (EF lower and ? Dyskinesis in LAD) w/out rx previously, now here w/ chest pain/dyspnea/LH/nausea, intermittently sweaty, nearly 24 hrs now. Went to [facility] trop initially ok, ECG NSST changes, advised [...] Jarrett MD Date: 11/30/2017 Time: 7:05 PM Rayf Rahsid (Pa-C) Mao ROBLEDO 11/30/17 3581 Normal [facility] HISTORY PHYSICALon HISTORY PHYSICAL HNO ID: [id number] Author: Fercho Osborne Service: Hospital Medicine Author Type: Physician Type: HANDP Filed: 11/30/2017 10:37 PM Note Text: DEPARTMENT OF HOSPITAL MEDICINE HISTORY AND PHYSICAL EXAM SERVICE DATE: 11/30/2017 SERVICE TIME: 9:48 PM Primary Care Physician: Uziel Conteh MD NIGHT AND WEEKEND COVERAGE: Nights: Please contact pager [phone]. Subjective HPI 47 Y F with PMH of diabetes, hyperlipidemia, hypertension, anxiety, depression, H/O pericardial effusion, systolic dysfunction, EF of 35 and 35% in 03/20, presents to the ED for evaluation of chest pain. The patient was seen in [facility] ED earlier today and they wanted to [...] CXR unremarkable Never Had stress test or [facility] Had abnormal ECHO in mar 2017 [...] 30, 2017 TIME: 9:48 PM PAGER/CONTACT #: [phone] [facility] HOSPon 11-30-2017 HOSP Patient:Olamide Jackson [...] pain. Pt explains she was seen at [facility] ED earlier today and Ed wanted to transfer her to [place] for obs but refused at that time [...] of chest pain. The patient was in [facility] ED earlier and was seen and evaluated [...] Abs Lymph 2.83 1.00 - 4.00 k/uL Carroll% 6.2 % Abs Carroll 0.56 <0.87 k/uL Eosin% 1.4 % Abs [...] Other: No acute osseous abnormality is identified. Washing Machine Installer: PSCB Transcribe Date/Time: Nov 30 2017 7:15P [...] of the patient and have reviewed the PA/MOSAIC TECHNICIAN note. My jones findings include: History - Ms. Jackson is a 47 yo F w/ h/o HTN and hyperlipidemia and DM and smoking, likely LA (EF lower and ? Dyskinesis in LAD) w/out rx previously, now here w/ chest pain/dyspnea/LH/nausea, intermittently sweaty, nearly 24 hrs now. Went to [facility] trop initially ok, ECG NSST changes, advised [...] 0200 this a.m. She was seen at [facility] ER earlier today and advised to be admitted for observation. Pt states she wanted to drive herself in after settling family arrangements. She indicates mid-sternal pain that is stabbing, aching, sharp, dull, and pressure all at the same time. She was given 4 baby ASA and morphine at [facility], per pt. Medic at the bedside to [...] AND WEEKEND COVERAGE: Nights: Please contact pager [phone]. Subjective HPI 47 Y F with PMH of diabetes, hyperlipidemia, hypertension, anxiety, depression, H/O pericardial effusion, systolic dysfunction, EF of 35 and 35% in 03/20, presents to the ED for evaluation of chest pain. The patient was seen in [facility] ED earlier today and they wanted to [...] CXR unremarkable Never Had stress test or [facility] Had abnormal ECHO in mar 2017 [...] 30, 2017 TIME: 9:48 PM PAGER/CONTACT #: [phone] Patricio Tate RN, RN 12/01/2017 5:01 AM Addendum Nursing Progress Note Patient Name: Trenton Jackson Patient Location: [facility]S-0304/DC-[id number]-2830-2 Daily Note: 2200: Assumed care of pt. [...] Note Patient Name: Trenton Jackson Patient Location: [facility]3S-0304/[id number] Daily Note: 0715: Assumed care of patient. [...] Prior to Discharge: To Be Determined MEDICAL: Patient/Supervisor Receiving And Processing Stated Goals: To return home to life as it was Health Insurance: [employer] Health Issues Impacting Discharge Plan: DM, HTN Last Admission Date: none Is this Within the Past 30 days? No Advance Directive: Current Advance Directive: None College Coach Assisted with AD Completion: Yes Action: Education [...] None Has the Patient Been in a Detention Facility in the Past 30 days? 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 Yes , uses [facility] Food Concerns: In the Last Month, Have [...] 01, 2017 TIME: 9:48 AM PAGER/CONTACT #: [phone] Jevon Sherman MD 12/01/2017 10:32 AM Signed [...] associated with exertion. In the ER at [facility] yesterday she had no ischemic changes on ECG, NSR, and negative Tn. She has a history of DM, is an active smoker, and had an abnormal echocardiogram last year showing LVEF 30% with an LAD territory wall motion abnormality with a dyskinetic apex. She has not seen a director of knowledge management about this problem and was unaware of [...] 11/30/176 -- 11/30/17 2200 pneumatic compression stockings (nv,oh) VTE Prophylaxis: VTE prophylaxis appropriate SIGNATURE: Lisa Bocanegra MD PATIENT NAME: Trenton Jackson DATE: December 01, 2017 TIME: 2:46 PM PAGER: [phone] Patricio Tate RN, RN 12/02/2017 6:32 AM Addendum Nursing Progress Note Patient Name: Trenton Jackson [facility]0304/[id number] Daily Note: 1915: Assumed care of pt. [...] observed sweating profusely. Glucose 84, normally 200's. [place] juice and johnosn crackers given. Glucose up to 149. Pt feeling slightly better. Will continue to monitor. 0500: Pt observed sleeping. Unable to obtain oral or axillary temp to this point. Will obtain rectal temp. Call light within reach. This note was completed by: Patricio Tate, RN Previous Version Patricio Tate, RN, RN 12/02/2017 4:59 AM Signed Nursing Progress Note Patient Name: Trenton Jackson Patient [facility]303/[id number] Event(s) / Intervention Note: The patient was [...] Note Patient Name: Trenton Jackson Patient Location: [facility]4/IB-[id number]-9086-2 Daily Note: 0715: Assumed care of patient. [...] due to BP drop. .Continue ASA/ /continue SELEEN/statin Check esr, crp,procal. For stress test and [...] December 02, 2017 TIME: 1:07 PM PAGER: [phone] Previous Version Sara Johnson, RN, RN 12/02/2017 6:26 PM Addendum Nursing Progress Note Patient Name: Trenton Jackson Patient Location: [place] [address]/[id number] Daily Note:1555 - Assumed care of pt. [...] Note Patient Name: Trenton Jackson Patient Location: [facility]4/[id number] Daily Note:2009-Pt on phone, requesting pain med, [...] CHAYITO López MD 12/03/2017 8:34 PM Unsigned [employer]- Stress Test TRENTON JACKSON : 1970 AGE: 47 SEX: F ACCTNUM: [id number] HOSP [facility]: [facility] LOCATION: [address] ATTENDING PHYSICIAN: Dex Fernandez M.D. DATE OF [...] nuclear imaging. Jevon Sherman M.D. Cardiovascular Medicine [id number] /[id number] Jazzmine Galvan, RN, RN 12/03/2017 6:59 PM Addendum Nursing Progress Note Patient Name: Trenton Jackson Patient [facility]0304/AC-[id number] Daily Note: 0700: Assumed care of pt. [...] 03, 2017 TIME: 11:44 AM PAGER/CONTACT #: [phone] Jevon Sherman MD 12/03/2017 5:30 PM Signed [...] 12/03/17 0605 12/02/17 0724 12/01/17 0755 11/30/17 8885 CK -- -- -- -- -- 41* [...] SERVICE TIME: 8:36 PM LOCATION / ROOM: [place] [address] [address] Hospital Medicine/Primary Attending: Dex Handy MD NIGHT COVERAGE BETWEEN 5.30P-7.30A Page [phone] ASSESSMENT AND PLAN Active Hospital Problems Diagnosis [...] Note Patient Name: Trenton Jackson Patient Location: [place]4/[id number] Daily Note: 2154- Dr Nava updated on [...] TIME: 11:14 AM The following are the [facility] Criteria for High Risk Catheterization: [...] if pt desires. Bhumi Junior LPN Normal [facility] High Sens Troponin Ton 11-30 High Sensitivity THEO 9 ng/L Normal <12 [facility] Comment on above: Result Comment: When assessing [...] day MACE. Performed By: #### H STNT ####[facility] [address] [place] [phone] High Sensitivity THEO 10 ng/L Normal <12 [facility] Comment on above: Result Comment: When assessing [...] MACE. Performed By: #### H STNT #### [facility] [address] [place] [phone] NT Pro BNPon 11-30-2017 Protein mass conc 517 pg/mL High <125 [facility] Comment on above: Performed By: #### N TBNP, CKCKMB #### [facility] [address] [place] [phone] Protimeon 11-30-2017 Prothrombin time (PT) Coag time (PPP) 10.2 s Normal 9.7-13.0 [facility] Comment on above: Performed By: #### C BCDIF, PT, PTT, CMP #### [facility] [address] [facility] [phone] Prothrombin time (PT) Coag time (PPP) 1.0 s Normal 0.9-1.3 [facility] Comment on above: Result Comment: Charissa min K Antagonist (VKA) Therapeutic Range: INR 2 to 3 (Target INR of 2.5) Note: For patients treated with VKA drugs, such as warfarin, the [place] [employer] 2012 Guideline recommends [...] Chest 2012, 141:7S-47S Sampson RA, et al. [facility] 2017, 70: 252-289 Performed By: #### C BCDIF, PT, PTT, CMP #### [facility] [address] [place] [address] XR CHEST 1V FRONTAL PORTon 0 11-30-2017 [...] Other: No acute osseous abnormality is identified. Washing Machine Installer: PSCB Transcribe Date/Time: Nov 30 2017 7:15P Dictated by : BRAD BLAKE MD This examination was interpreted and the report reviewed and electronically signed by: BRAD BLAKE MD on Nov 30 2017 7:16PM EST [id number] Normal [facility] Influenza virus A and B and SARS-CoV-2 (COVID-19) Ag panel - Upper respiratory specim SARS-CoV-2 & FLU Antigen (Rapid) Influenzae A [facility] Work Phone: Vital Signs Date Time Vital Sign Value Performing Clinician Facility 02-11-2025 14:45-0400 Body temperature 97.8 [degF] Zohreh Mckeon MULTI CRAFT MAINTENANCE TECHNICIAN-C Work Phone: [phone] [address] 02-11-2025 14:45-0400 Diastolic blood pressure 68 mm[Hg] Zohreh Mckeon MULTI CRAFT MAINTENANCE TECHNICIAN-C Work Phone: [phone] [place] [address] 02-11-2025 14:45-0400 Heart rate 89 /min Zohreh Mckeon MULTI CRAFT MAINTENANCE TECHNICIAN-C Work Phone: [phone] [place] [address] 02-11-2025 14:45-0400 Respiratory rate 16 /min Zohreh Mckeon MULTI CRAFT MAINTENANCE TECHNICIAN-C Work Phone: [phone] [place] [address] 02-11-2025 14:45-0400 SaO2% (BldA) [Mass fraction] 100 % Zohreh Mckeon MULTI CRAFT MAINTENANCE TECHNICIAN-C Work Phone: [phone] [address] 02-11-2025 14:45-0400 Systolic blood pressure 137 mm[Hg] Zohreh Mckeon MULTI CRAFT MAINTENANCE TECHNICIAN-C Work Phone: [phone] [place] [address] 02-11-2025 04:42-0400 Body mass index (BMI) [Ratio] 29.7 kg/m2 Zohreh Mckeon MULTI CRAFT MAINTENANCE TECHNICIAN-C Work Phone: [phone] [place] [address] 02-11-2025 04:42-0400 Body weight 83.9 kg Zohreh Mckeon [employer] TECHNICIAN[employer] Work Phone: 3(915)868-211682 [place] [address] 02-05-2025 02:09-0400 Inhaled oxygen flow rate 2 L/min Zohreh Mckeon [employer]INTE[employer] TECHNICIAN-C Work Phone: 4(575)259-404968 [place] [address] 01-30-2025 13:32-0400 Body height 167.64 cm Zohreh Mckeon [employer] MAINTENANCE TECHNICIAN-C Work Phone: 6(077)050-997982 [place] [address] 01-29-2025 21:00-0400 Diastolic blood pressure 70 mm[Hg] Zohreh Mckeon [employer] MAINTENA[employer]CE TECHNICIAN-C Work Phone: 8(721)556-749268 [place] [address] 01-29-2025 21:00-0400 Heart rate 70 /min Zohrehlurdes Mckeon [employer] MAINTENANCE TECHNICIAN-C Work Phone: 8(970)021-692082 [place] [address] 01-29-2025 21:00-0400 Respiratory rate 14 /min Zohreh Mckeon [employer]INTENA[employer]CE TECHNICIAN-C Work Phone: 9(624)934-317882 [place] [address] 01-29-2025 21:00-0400 SaO2% (BldA) [Mass fraction] 98 % Zohreh Mckeon [employer] MAINTENANCE TECHNICIAN-C Work Phone: 1(075)882-022968 [place] [address] 01-29-2025 21:00-0400 Systolic blood pressure 164 mm[Hg] Zohreh Mckeon [employer] MAINTENANCE TECHNICIAN-C Work Phone: 3(593)362-833668 [place] [address] 01-29-2025 19:33-0400 Body temperature 98 [degF] Zohreh Mckeon [employer] MAINTENANCE TECHNICIAN-C Work Phone: 2(643)074-157068 [place] [address] 01-29-2025 15:40-0400 Body height 167.64 cm Zohreh Mckeon [employer] MAINTENANCE TECHNICIAN-C Work Phone: 1(631)625-930468 [place] [address] 01-29-2025 15:40-0400 Body mass index (BMI) [Ratio] 26.9 kg/m2 Zohreh Mckeon [employer] MAINTENANCE TECHNICIAN-C Work Phone: 0(543)027-065868 [place] [address] 01-29-2025 15:40-0400 Body weight 75.7 kg Zohreh Mckeon [employer] MAINTENANCE TECHNICIAN-C Work Phone: 6(859)240-551982 [place] [address] 12-12-2024 18:17-0400 Body temperature 98.5 [degF] Zohreh Mckeon [employer] MAINTENANCE TECHNICIAN-C Work Phone: 4(042)062-840582 [place] [address] 12-12-2024 18:17-0400 Diastolic blood pressure 91 mm[Hg] Zohreh Mckeon [employer] MAINTENANCE TECHNICIAN-C Work Phone: 1(684)224-017868 [place] [address] 12-12-2024 18:17-0400 Heart rate 97 /min Zohreh Mckeon [employer] MAINTENANCE TECHNICIAN-C Work Phone: 1(619)269-254168 [place] [address] 12-12-2024 18:17-0400 Respiratory rate 18 /min Zohreh Mckeon [employer] MAINTENANCE TECHNICIAN-C Work Phone: 0(780)483-421582 [place] [address] 12-12-2024 18:17-0400 SaO2% (BldA) [Mass fraction] 98 % Zohreh Mckeon [employer]TENANCE TECHNICIAN-C Work Phone: 9(799)811-284068 [place] [address] 12-12-2024 18:17-0400 Systolic blood pressure 152 mm[Hg] Zohreh Mckeon [employer] MA[employer]TENANCE TECHNICIAN-C Work Phone: 4(563)605-065182 [place] [address] 12-12-2024 13:08-0400 Body height 167.64 cm Zohreh Mckeon [employer] MAINTENANCE TECHNICIAN-C Work Phone: 9(491)548-828782 [place] [address] 09-29-2024 16:59-0400 Body temperature 97.7 [degF] [facility] Work Phone: 7(304)408-224282 [place] [address] 09-29-2024 16:59-0400 Diastolic blood pressure 80 mm[Hg] [facility] Work Phone: 1(732)919-893682 [place] [address] 09-29-2024 16:59-0400 Heart rate 133 /min [facility] Work Phone: 4(954)451-528168 [place] [address] 09-29-2024 16:59-0400 Respiratory rate 15 /min [facility] Work Phone: 0(120)262-355182 [place] [address] 09-29-2024 16:59-0400 SaO2% (BldA) [Mass fraction] 95 % [facility] Work Phone: 1(717)147-118782 [place] [address] 09-29-2024 16:59-0400 Systolic blood pressure 149 mm[Hg] [facility] Work Phone: 8(795)998-800482 [place] [address] 09-29-2024 10:16-0400 Body height 170.18 cm [facility] Work Phone: 1(151)219-439382 [place] [address] 09-29-2024 10:16-0400 Body mass index (BMI) [Ratio] 28 kg/m2 [facility] Work Phone: 4(266)578-741682 [place] [address] 09-29-2024 10:16-0400 Body weight 81.4 kg [facility] Work Phone: 3(041)191-269082 [place] [address] 09-21-2024 17:11-0400 Body temperature 97.9 [degF] [facility] Work Phone: 9(883)081-460082 [place] [address] 09-21-2024 17:11-0400 Diastolic blood pressure 102 mm[Hg] [facility] Work Phone: 3(463)377-853482 [place] [address] 09-21-2024 17:11-0400 Heart rate 110 /min [facility] Work Phone: 1(809)035-855082 [place] [address] 09-21-2024 17:11-0400 Respiratory rate 16 /min [facility] Work Phone: 3(549)294-671082 [place] [address] 09-21-2024 17:11-0400 SaO2% (BldA) [Mass fraction] 98 % [facility] Work Phone: 8(402)942-727682 [place] [address] 09-21-2024 17:11-0400 Systolic blood pressure 139 mm[Hg] [facility] Work Phone: 8(657)170-781082 [place] [address] 09-21-2024 12:16-0400 Body height 170.18 cm [facility] Work Phone: 1(655)842-164382 [place] [address] 09-21-2024 12:16-0400 Body mass index (BMI) [Ratio] 28.4 kg/m2 [facility] Work Phone: 5(885)014-977382 [place] [address] 09-21-2024 12:16-0400 Body weight 82.3 kg [facility] Work Phone: 5(731)112-825782 [place] [address] 09-16-2024 15:35-0400 Diastolic blood pressure 94 mm[Hg] [facility] Work Phone: 1(143)497-076682 [place] [address] 09-16-2024 15:35-0400 Heart rate 110 /min [facility] Work Phone: 8(227)386-346982 [place] [address] 09-16-2024 15:35-0400 SaO2% (BldA) [Mass fraction] 98 % [facility] Work Phone: 0(421)565-265482 [place] [address] 09-16-2024 15:35-0400 Systolic blood pressure 160 mm[Hg] [facility] Work Phone: 1(303)437-076582 [place] [address] 09-16-2024 14:31-0400 Body temperature 97.2 [degF] [facility] Work Phone: 0(052)436-946282 [place] [address] 09-16-2024 14:31-0400 Respiratory rate 18 /min [facility] Work Phone: 8(106)269-738982 [place] [address] 09-16-2024 03:10-0400 Body mass index (BMI) [Ratio] 28.7 kg/m2 [facility] Work Phone: 3(335)213-482282 [place] [address] 09-16-2024 03:10-0400 Body weight 83.1 kg [facility] Work Phone: 2(238)849-118582 [place] [address] 09-11-2024 10:56-0400 Body height 170.18 cm [facility] Work Phone: 5(594)187-565982 [place] [address] 09-07-2024 21:00-0400 Diastolic blood pressure 79 mm[Hg] [facility] Work Phone: 2(432)062-665782 [place] [address] 09-07-2024 21:00-0400 Heart rate 101 /min [facility] Work Phone: 7(830)913-135482 [place] [address] 09-07-2024 21:00-0400 Respiratory rate 10 /min [facility] Work Phone: 0(756)166-350182 [place] [address] 09-07-2024 21:00-0400 SaO2% (BldA) [Mass fraction] 99 % [facility] Work Phone: 9(305)196-478182 [place] [address] 09-07-2024 21:00-0400 Systolic blood pressure 143 mm[Hg] [facility] Work Phone: 4(948)594-283782 [place] [address] 09-07-2024 15:52-0400 Body height 170.18 cm [facility] Work Phone: 0(473)992-122582 [place] [address] 09-07-2024 15:52-0400 Body mass index (BMI) [Ratio] 26.9 kg/m2 [facility] Work Phone: 2(982)664-698582 [place] [address] 09-07-2024 15:52-0400 Body temperature 97.4 [degF] [facility] Work Phone: 5(312)783-355282 [place] [address] 09-07-2024 15:52-0400 Body weight 77.9 kg [facility] Work Phone: 8(539)950-791782 [place] [address] 09-05-2024 15:24-0400 Body temperature 97.7 [degF] [facility] Work Phone: 8(103)196-702482 [place] [address] 09-05-2024 15:24-0400 Diastolic blood pressure 62 mm[Hg] [facility] Work Phone: 4(194)559-192482 [place] [address] 09-05-2024 15:24-0400 Heart rate 90 /min [facility] Work Phone: 7(549)641-664082 [place] [address] 09-05-2024 15:24-0400 Respiratory rate 15 /min [facility] Work Phone: 4(551)600-624182 [place] [address] 09-05-2024 15:24-0400 SaO2% (BldA) [Mass fraction] 96 % [facility] Work Phone: 4(446)455-425982 [place] [address] 09-05-2024 15:24-0400 Systolic blood pressure 100 mm[Hg] [facility] Work Phone: 5(803)480-064882 [place] [address] 09-05-2024 10:29-0400 Body height 170.18 cm [facility] Work Phone: 1(999)475-530982 [place] [address] 09-05-2024 10:29-0400 Body mass index (BMI) [Ratio] 27.2 kg/m2 [facility] Work Phone: 0(875)190-927982 [place] [address] 09-05-2024 10:29-0400 Body weight 78.9 kg [facility] Work Phone: 2(193)635-582382 [place] [address] 09-02-2024 12:46-0400 Body temperature 98 [degF] [facility] Work Phone: 8(765)652-155382 [place] [address] 09-02-2024 12:46-0400 Diastolic blood pressure 78 mm[Hg] [facility] Work Phone: 4(711)662-301882 [place] [address] 09-02-2024 12:46-0400 Heart rate 60 /min [facility] Work Phone: 1(592)766-234082 [place] [address] 09-02-2024 12:46-0400 Respiratory rate 13 /min [facility] Work Phone: 3(359)222-431882 [place] [address] 09-02-2024 12:46-0400 SaO2% (BldA) [Mass fraction] 95 % [facility] Work Phone: 3(157)629-895282 [place] [address] 09-02-2024 12:46-0400 Systolic blood pressure 112 mm[Hg] [facility] Work Phone: 4(703)492-289082 [place] [address] 09-02-2024 12:00-0400 Heart rate 96 /min [facility] Work Phone: 4(568)543-795982 [place] [address] 09-02-2024 12:00-0400 Respiratory rate 17 /min [facility] Work Phone: 9(751)842-969382 [place] [address] 09-02-2024 12:00-0400 SaO2% (BldA) [Mass fraction] 97 % [facility] Work Phone: 2(996)955-453482 [place] [address] 09-02-2024 12:00-0400 Systolic blood pressure 144 mm[Hg] [facility] Work Phone: 5(004)031-301982 [place] [address] 09-02-2024 06:00-0400 Body mass index (BMI) [Ratio] 27.7 kg/m2 [facility] Work Phone: 2(967)802-210182 [place] [address] 09-02-2024 06:00-0400 Body weight 80.1 kg [facility] Work Phone: 1(664)751-344982 [place] [address] 08-30-2024 15:46-0400 Body height 170.18 cm [facility] Work Phone: 3(743)353-304782 [place] [address] 08-26-2024 20:00-0400 Diastolic blood pressure 69 mm[Hg] [facility] Work Phone: 2(651)704-886382 [place] [address] 08-26-2024 20:00-0400 Heart rate 98 /min [facility] Work Phone: 2(973)091-087982 [place] [address] 08-26-2024 20:00-0400 Systolic blood pressure 129 mm[Hg] [facility] Work Phone: 5(652)835-520882 [place] [address] 08-26-2024 19:09-0400 Body temperature 98 [degF] [facility] Work Phone: 9(907)092-661582 [place] [address] 08-26-2024 19:09-0400 Respiratory rate 16 /min [facility] Work Phone: 9(354)759-333582 [place] [address] 08-26-2024 19:09-0400 SaO2% (BldA) [Mass fraction] 97 % [facility] Work Phone: 6(595)876-329882 [place] [address] 08-26-2024 10:08-0400 Body height 170.18 cm [facility] Work Phone: 6(158)490-488782 [place] [address] 08-26-2024 10:08-0400 Body mass index (BMI) [Ratio] 28.8 kg/m2 [facility] Work Phone: 8(885)463-820082 [place] [address] 08-26-2024 10:08-0400 Body weight 83.6 kg [facility] Work Phone: 7(483)126-212582 [place] [address] 08-01-2024 20:58-0500 Heart rate 101 /min [facility] Work Phone: 6(579)965-091582 [place] [address] 08-01-2024 20:58-0500 Respiratory rate 22 /min [facility] Work Phone: 1(302)932-859182 [place] [address] 08-01-2024 20:58-0500 SaO2% (BldA) [Mass fraction] 99 % [facility] Work Phone: 6(117)138-351282 [place] [address] 08-01-2024 19:00-0500 Diastolic blood pressure 76 mm[Hg] [facility] Work Phone: 0(662)646-601482 [place] [address] 08-01-2024 19:00-0500 Systolic blood pressure 134 mm[Hg] [facility] Work Phone: 8(333)825-225282 [place] [address] 08-01-2024 17:00-0500 Body temperature 98.4 [degF] [facility] Work Phone: 8(444)620-180782 [place] [address] 08-01-2024 13:46-0500 Body mass index (BMI) [Ratio] 27.9 kg/m2 [facility] Work Phone: 7(705)343-210682 [place] [address] 08-01-2024 13:46-0500 Body weight 80.9 kg [facility] Work Phone: 3(074)346-903282 [place] [address] 07-11-2024 12:40-0500 Body mass index (BMI) [Ratio] 26.6 kg/m2 [facility] Work Phone: 3(612)053-125682 [place] [address] 07-11-2024 12:40-0500 Body temperature 96 [degF] [facility] Work Phone: 2(762)522-083182 [place] [address] 07-11-2024 12:40-0500 Body weight 77.11 kg [facility] Work Phone: 7(385)674-075882 [place] [address] 07-11-2024 12:40-0500 Diastolic blood pressure 83 mm[Hg] [facility] Work Phone: 5(519)167-063482 [place] [address] 07-11-2024 12:40-0500 Heart rate 94 /min [facility] Work Phone: 2(514)576-860182 [place] [address] 07-11-2024 12:40-0500 Respiratory rate 16 /min [facility] Work Phone: 6(867)903-621182 [place] [address] 07-11-2024 12:40-0500 SaO2% (BldA) [Mass fraction] 98 % [facility] Work Phone: 1(387)943-951582 [place] [address] 07-11-2024 12:40-0500 Systolic blood pressure 154 mm[Hg] [facility] Work Phone: 2(050)978-922282 [place] [address] 07-10-2024 12:46-0500 Body temperature 96.4 [degF] [facility] Work Phone: 5(675)957-790282 [place] [address] 07-10-2024 12:46-0500 Diastolic blood pressure 63 mm[Hg] [facility] Work Phone: 6(858)792-203282 [place] [address] 07-10-2024 12:46-0500 Heart rate 91 /min [facility] Work Phone: 2(891)374-858282 [place] [address] 07-10-2024 12:46-0500 Respiratory rate 16 /min [facility] Work Phone: 8(921)017-790382 [place] [address] 07-10-2024 12:46-0500 SaO2% (BldA) [Mass fraction] 97 % [facility] Work Phone: 9(993)575-911382 [place] [address] 07-10-2024 12:46-0500 Systolic blood pressure 118 mm[Hg] [facility] Work Phone: 5(175)989-792882 [place] [address] 07-07-2024 12:29-0500 Body temperature 97 [degF] [facility] Work Phone: 9(950)750-755782 [place] [address] 07-07-2024 12:29-0500 Diastolic blood pressure 59 mm[Hg] [facility] Work Phone: 4(259)300-200882 [place] [address] 07-07-2024 12:29-0500 Heart rate 65 /min [facility] Work Phone: 5(459)419-541482 [place] [address] 07-07-2024 12:29-0500 Respiratory rate 16 /min [facility] Work Phone: 0(553)949-194182 [place] [address] 07-07-2024 12:29-0500 SaO2% (BldA) [Mass fraction] 99 % [facility] Work Phone: 2(847)304-072682 [place] [address] 07-07-2024 12:29-0500 Systolic blood pressure 107 mm[Hg] [facility] Work Phone: 1(887)661-219582 [place] [address] 07-05-2024 11:27-0500 Body temperature 95.9 [degF] [facility] Work Phone: 3(176)425-869982 [place] [address] 07-05-2024 11:27-0500 Diastolic blood pressure 83 mm[Hg] [facility] Work Phone: 8(034)637-610582 [place] [address] 07-05-2024 11:27-0500 Heart rate 96 /min [facility] Work Phone: 0(902)693-210482 [place] [address] 07-05-2024 11:27-0500 Respiratory rate 16 /min [facility] Work Phone: 3(148)792-140182 [place] [address] 07-05-2024 11:27-0500 SaO2% (BldA) [Mass fraction] 94 % [facility] Work Phone: 6(359)118-731182 [place] [address] 07-05-2024 11:27-0500 Systolic blood pressure 142 mm[Hg] [facility] Work Phone: 0(846)248-940782 [place] [address] 07-04-2024 12:57-0500 Body mass index (BMI) [Ratio] 26.6 kg/m2 [facility] Work Phone: 9(599)080-850582 [place] [address] 07-04-2024 12:57-0500 Body temperature 96.5 [degF] [facility] Work Phone: 6(734)666-639982 [place] [address] 07-04-2024 12:57-0500 Body weight 77.11 kg [facility] Work Phone: 8(024)379-093782 [place] [address] 07-04-2024 12:57-0500 Diastolic blood pressure 69 mm[Hg] [facility] Work Phone: 1(726)917-698182 [place] [address] 07-04-2024 12:57-0500 Heart rate 97 /min [facility] Work Phone: 0(994)901-461682 [place] [address] 07-04-2024 12:57-0500 Respiratory rate 16 /min [facility] Work Phone: 6(638)316-350782 [place] [address] 07-04-2024 12:57-0500 SaO2% (BldA) [Mass fraction] 100 % [facility] Work Phone: 6(926)684-783582 [place] [address] 07-04-2024 12:57-0500 Systolic blood pressure 128 mm[Hg] [facility] Work Phone: 9(058)130-157782 [place] [address] 07-03-2024 13:17-0500 Body temperature 97.3 [degF] [facility] Work Phone: 9(745)512-394582 [place] [address] 07-03-2024 13:17-0500 Diastolic blood pressure 57 mm[Hg] [facility] Work Phone: 8(573)402-356882 [place] [address] 07-03-2024 13:17-0500 Heart rate 85 /min [facility] Work Phone: 9(839)371-453582 [place] [address] 07-03-2024 13:17-0500 Respiratory rate 18 /min [facility] Work Phone: [facility] 07-03-2024 13:17-0500 SaO2% (BldA) [Mass fraction] 100 % [facility] Work Phone: [facility] 07-03-2024 13:17-0500 Systolic blood pressure 107 mm[Hg] [facility] Work Phone: [facility] 07-03-2024 03:57-0500 Body mass index (BMI) [Ratio] 28.8 kg/m2 [facility] Work Phone: [facility] 07-03-2024 03:57-0500 Body weight 83.3 kg [facility] Work Phone: [facility] 05-24-2024 14:00-0500 Diastolic Blood Pressure Non-Invasive 69 mm[Hg] DR RAYMUNDO VIEIRA DO [facility] 05-24-2024 14:00-0500 Heart rate 91 /min DR RAYMUNDO VIEIRA DO [facility] 05-24-2024 14:00-0500 Respiratory rate 16 /min DR RAYMUNDO VIEIRA DO [facility] 05-24-2024 14:00-0500 Systolic Blood Pressure Non-Invasive 113 mm[Hg] DR RAYMUNDO VIEIRA DO [facility] 05-23-2024 22:49-0500 Diastolic Blood Pressure Non-Invasive 72 mm[Hg] DR RAYMUNDO VIEIRA DO [facility] 05-23-2024 22:49-0500 Heart rate 93 /min DR RAYMUNDO VIEIRA DO [facility] 05-23-2024 22:49-0500 Respiratory rate 18 /min DR RAYMUNDO VIEIRA DO [facility] 05-23-2024 22:49-0500 Systolic Blood Pressure Non-Invasive 124 mm[Hg] DR RAYMUNDO VIEIRA DO [facility] 05-23-2024 20:03-0500 Diastolic Blood Pressure Non-Invasive 59 mm[Hg] DR RAYMUNDO VIEIRA DO [facility] 05-23-2024 20:03-0500 Heart rate 91 /min DR RAYMUNDO VIEIRA DO [facility] 05-23-2024 20:03-0500 Mean blood pressure 67 mm[Hg] DR RAYMUNDO VIEIRA DO [facility] 05-23-2024 20:03-0500 Respiratory rate 14 /min DR RAYMUNDO VIEIRA DO [facility] 05-23-2024 20:03-0500 Systolic Blood Pressure Non-Invasive 83 mm[Hg] DR RAYMUNDO VIEIRA DO [facility] 05-23-2024 19:34-0500 Blood Pressure Cuff Size DR RAYMUNDO VIEIRA DO [facility] 05-23-2024 19:34-[address] RAYMUNDO VIEIRA DO [facility] 05-23-2024 19:34-[address] RAYMUNDO VIEIRA DO [facility] 05-23-2024 19:34-0500 Body temperature 98.06 [degF] DR RAYMUNDO VIEIRA DO [facility] 05-23-2024 19:34-0500 Heart rate 95 /min DR RAYMUNDO VIEIRA DO [facility] 04-29-2024 13:31-0500 Body temperature 98.2 [degF] [facility] Work Phone: 5(283)998-379568 [place] [address] 04-29-2024 13:31-0500 Diastolic blood pressure 70 mm[Hg] [facility] Work Phone: 8(837)428-161482 [place] [address] 04-29-2024 13:31-0500 Heart rate 89 /min [facility] Work Phone: 6(102)161-013882 [place] [address] 04-29-2024 13:31-0500 Respiratory rate 16 /min [facility] Work Phone: 1(959)760-894268 [place] [address] 04-29-2024 13:31-0500 SaO2% (BldA) [Mass fraction] 97 % [facility] Work Phone: 0(060)042-432668 [place] [address] 04-29-2024 13:31-0500 Systolic blood pressure 121 mm[Hg] [facility] Work Phone: 7(158)915-652382 [place] [address] 04-29-2024 10:26-0500 Body weight 73.66 kg [facility] Work Phone: 0(754)190-739168 [place] [address] 04-25-2024 16:40-0500 Body mass index (BMI) [Ratio] 25.4 kg/m2 [facility] Work Phone: 9(463)840-926068 [place] [address] 10-15-2023 17:28-0400 Body temperature 97.2 [degF] [facility] 10-15-2023 17:28-0400 Diastolic blood pressure 75 mm[Hg] [facility] 10-15-2023 17:28-0400 Heart rate 87 /min [facility] 10-15-2023 17:28-0400 Respiratory rate 17 /min [facility] 10-15-2023 17:28-0400 SaO2% (BldA) [Mass fraction] 98 % [facility] 10-15-2023 17:28-0400 Systolic blood pressure 131 mm[Hg] [facility] 10-15-2023 15:35-0400 Body height 170.18 cm [facility] 09-02-2023 09:42-0400 Body temperature 97.6 [degF] [facility] Work Phone: 2(408)567-819382 [place] [address] 09-02-2023 09:42-0400 Diastolic blood pressure 76 mm[Hg] [facility] Work Phone: 8(576)566-889082 [place] [address] 09-02-2023 09:42-0400 Heart rate 101 /min [facility] Work Phone: 0(828)879-178382 [place] [address] 09-02-2023 09:42-0400 Respiratory rate 16 /min [facility] Work Phone: 9(443)332-826482 [place] [address] 09-02-2023 09:42-0400 SaO2% (BldA) [Mass fraction] 95 % [facility] Work Phone: 9(941)896-366582 [place] [address] 09-02-2023 09:42-0400 Systolic blood pressure 148 mm[Hg] [facility] Work Phone: 3(725)679-955882 [place] [address] 09-02-2023 07:42-0400 Body height 170.18 cm [facility] Work Phone: 9(419)106-616082 [place] [address] 09-02-2023 07:42-0400 Body mass index (BMI) [Ratio] 29.7 kg/m2 [facility] Work Phone: 5(636)629-767682 [place] [address] 09-02-2023 07:42-0400 Body weight 86.1 kg [facility] Work Phone: 9(946)834-688482 [place] [address] 09-02-2023 07:42-0400 Inhaled oxygen flow rate 2 L/min [facility] Work Phone: 3(739)442-034182 [place] [address] 06-19-2023 09:59-0500 Respiratory rate 14 /min [facility] Work Phone: 8(049)327-602982 [place] [address] 06-19-2023 09:12-0500 Body mass index (BMI) [Ratio] 26.2 kg/m2 [facility] Work Phone: 7(100)877-897182 [place] [address] 06-19-2023 09:12-0500 Body weight 75.7 kg [facility] Work Phone: 0(392)087-254582 [place] [address] 06-19-2023 09:03-0500 Body height 170.18 cm [facility] Work Phone: 6(321)009-116082 [place] [address] 06-19-2023 09:03-0500 Body temperature 95 [degF] [facility] Work Phone: 0(732)979-106582 [place] [address] 06-19-2023 09:03-0500 Diastolic blood pressure 94 mm[Hg] [facility] Work Phone: 0(568)568-560582 [place] [address] 06-19-2023 09:03-0500 Heart rate 102 /min [facility] Work Phone: 3(870)343-312982 [place] [address] 06-19-2023 09:03-0500 SaO2% (BldA) [Mass fraction] 97 % [facility] Work Phone: 7(692)513-181682 [place] [address] 06-19-2023 09:03-0500 Systolic blood pressure 142 mm[Hg] [facility] Work Phone: 5(699)984-520582 [place] [address] 06-16-2023 11:30-0500 SaO2% (BldA) [Mass fraction] 93 % [facility] Work Phone: 5(764)386-843982 [place] [address] 06-16-2023 07:49-0500 Body temperature 97.6 [degF] [facility] Work Phone: 9(651)639-847182 [place] [address] 06-16-2023 07:49-0500 Diastolic blood pressure 80 mm[Hg] [facility] Work Phone: 6(245)614-470182 [place] [address] 06-16-2023 07:49-0500 Heart rate 79 /min [facility] Work Phone: 8(346)710-697182 [place] [address] 06-16-2023 07:49-0500 Respiratory rate 18 /min [facility] Work Phone: 9(942)509-762882 [place] [address] 06-16-2023 07:49-0500 Systolic blood pressure 119 mm[Hg] [facility] Work Phone: 7(506)235-866482 [place] [address] 06-15-2023 20:35-0500 Inhaled oxygen flow rate 2 L/min [facility] Work Phone: 8(360)988-969082 [place] [address] 06-13-2023 14:21-0500 Body height 170.18 cm [facility] Work Phone: 1(807)514-330882 [place] [address] 06-13-2023 14:21-0500 Body weight 79.42 kg [facility] Work Phone: 5(317)886-641582 [place] [address] 06-13-2023 03:00-0500 Body mass index (BMI) [Ratio] 27.4 kg/m2 [facility] Work Phone: 2(680)730-928782 [place] [address] 06-13-2023 01:36-0500 Diastolic blood pressure 92 mm[Hg] [facility] Work Phone: 7(395)239-447182 [place] [address] 06-13-2023 01:36-0500 Heart rate 98 /min [facility] Work Phone: 2(115)364-235982 [place] [address] 06-13-2023 01:36-0500 Respiratory rate 15 /min [facility] Work Phone: 0(167)650-657082 [place] [address] 06-13-2023 01:36-0500 SaO2% (BldA) [Mass fraction] 95 % [facility] Work Phone: 7(801)239-414482 [place] [address] 06-13-2023 01:36-0500 Systolic blood pressure 131 mm[Hg] [facility] Work Phone: 6(902)203-975282 [place] [address] 06-12-2023 23:01-0500 Inhaled oxygen flow rate 4 L/min [facility] Work Phone: 4(217)318-144282 [place] [address] 06-12-2023 19:59-0500 Body temperature 98.9 [degF] [facility] Work Phone: 4(806)496-023282 [place] [address] 05-26-2023 12:07-0500 Diastolic blood pressure 74 mm[Hg] [facility] Work Phone: 4(637)168-967382 [place] [address] 05-26-2023 12:07-0500 Heart rate 82 /min [facility] Work Phone: 2(337)741-527682 [place] [address] 05-26-2023 12:07-0500 Respiratory rate 16 /min [facility] Work Phone: 5(776)528-428382 [place] [address] 05-26-2023 12:07-0500 SaO2% (BldA) [Mass fraction] 96 % [facility] Work Phone: 6(138)711-023782 [place] [address] 05-26-2023 12:07-0500 Systolic blood pressure 138 mm[Hg] [facility] Work Phone: 3(702)470-814182 [place] [address] 05-26-2023 10:44-0500 Body mass index (BMI) [Ratio] 26.3 kg/m2 [facility] Work Phone: 4(094)403-105582 [place] [address] 05-26-2023 10:44-0500 Body weight 76.1 kg [facility] Work Phone: 4(176)055-523082 [place] [address] 05-26-2023 09:50-0500 Body temperature 96.6 [degF] [facility] Work Phone: 6(537)486-891082 [place] [address] 05-22-2023 16:02-0500 Respiratory rate 16 /min [facility] Work Phone: 3(083)515-441682 [place] [address] 05-22-2023 14:33-0500 Body mass index (BMI) [Ratio] 26.6 kg/m2 [facility] Work Phone: 0(593)088-089782 [place] [address] 05-22-2023 14:33-0500 Body weight 77.2 kg [facility] Work Phone: 4(893)403-532082 [place] [address] 05-22-2023 13:51-0500 Body height 170.18 cm [facility] Work Phone: 8(597)345-969382 [place] [address] 05-22-2023 13:51-0500 Body temperature 97.3 [degF] [facility] Work Phone: 6(921)661-043782 [place] [address] 05-22-2023 13:51-0500 Diastolic blood pressure 82 mm[Hg] [facility] Work Phone: 5(967)917-958982 [place] [address] 05-22-2023 13:51-0500 Heart rate 107 /min [facility] Work Phone: 6(271)747-700282 [place] [address] 05-22-2023 13:51-0500 SaO2% (BldA) [Mass fraction] 98 % [facility] Work Phone: 5(372)282-747282 [place] [address] 05-22-2023 13:51-0500 Systolic blood pressure 150 mm[Hg] [facility] Work Phone: 5(926)303-123682 [place] [address] 05-07-2023 16:50-0500 Body temperature 98.3 [degF] [facility] Work Phone: 2(012)689-889182 [place] [address] 05-07-2023 16:50-0500 Diastolic blood pressure 68 mm[Hg] [facility] Work Phone: 8(886)317-727782 [place] [address] 05-07-2023 16:50-0500 Heart rate 84 /min [facility] Work Phone: 6(720)107-496482 [place] [address] 05-07-2023 16:50-0500 Respiratory rate 16 /min [facility] Work Phone: 9(340)166-040582 [place] [address] 05-07-2023 16:50-0500 SaO2% (BldA) [Mass fraction] 99 % [facility] Work Phone: 2(074)800-015382 [place] [address] 05-07-2023 16:50-0500 Systolic blood pressure 101 mm[Hg] [facility] Work Phone: 7(262)118-316082 [place] [address] 05-07-2023 12:30-0500 Body temperature 98.4 [degF] [facility] Work Phone: 8(933)966-379682 [place] [address] 05-07-2023 12:30-0500 Diastolic blood pressure 63 mm[Hg] [facility] Work Phone: 8(853)609-537182 [place] [address] 05-07-2023 12:30-0500 Heart rate 85 /min [facility] Work Phone: 6(861)352-897682 [place] [address] 05-07-2023 12:30-0500 Respiratory rate 16 /min [facility] Work Phone: 1(555)641-005582 [place] [address] 05-07-2023 12:30-0500 SaO2% (BldA) [Mass fraction] 92 % [facility] Work Phone: 9(557)674-298582 [place] [address] 05-07-2023 12:30-0500 Systolic blood pressure 94 mm[Hg] [facility] Work Phone: 6(458)173-616282 [place] [address] 05-07-2023 06:00-0500 Body mass index (BMI) [Ratio] 26.4 kg/m2 [facility] Work Phone: 9(747)962-602282 [place] [address] 05-07-2023 06:00-0500 Body weight 76.5 kg [facility] Work Phone: 4(410)362-487082 [place] [address] 05-05-2023 07:53-0500 Inhaled oxygen flow rate 5 L/min [facility] Work Phone: 6(231)220-041582 [place] [address] 05-04-2023 15:22-0500 Body height 170.18 cm [facility] Work Phone: 7(396)482-011382 [place] [address] 05-03-2023 17:00-0500 Heart rate 110 /min [facility] Work Phone: 1(807)371-058882 [place] [address] 05-03-2023 17:00-0500 Inhaled oxygen flow rate 5 L/min [facility] Work Phone: 6(820)504-886482 [place] [address] 05-03-2023 17:00-0500 Respiratory rate 16 /min [facility] Work Phone: 2(040)927-036482 [place] [address] 05-03-2023 17:00-0500 SaO2% (BldA) [Mass fraction] 93 % [facility] Work Phone: 5(090)463-718182 [place] [address] 05-03-2023 16:23-0500 Diastolic blood pressure 84 mm[Hg] [facility] Work Phone: 5(099)149-695982 [place] [address] 05-03-2023 16:23-0500 Systolic blood pressure 134 mm[Hg] [facility] Work Phone: 5(977)677-616482 [place] [address] 05-03-2023 13:37-0500 Body height 170.18 cm [facility] Work Phone: 1(410)318-062482 [place] [address] 05-03-2023 13:37-0500 Body mass index (BMI) [Ratio] 26.6 kg/m2 [facility] Work Phone: 7(025)295-197282 [place] [address] 05-03-2023 13:37-0500 Body temperature 97.1 [degF] [facility] Work Phone: 4(102)985-181482 [place] [address] 05-03-2023 13:37-0500 Body weight 77.1 kg [facility] Work Phone: 2(698)560-970982 [place] [address] 04-18-2023 14:40-0500 Body height 170.18 cm [facility] Work Phone: 9(993)183-613482 [place] [address] 04-18-2023 14:40-0500 Body mass index (BMI) [Ratio] 25.8 kg/m2 [facility] Work Phone: 1(226)977-349382 [place] [address] 04-18-2023 14:40-0500 Body weight 74.84 kg [facility] Work Phone: 1(372)875-043482 [place] [address] 04-18-2023 14:40-0500 Diastolic blood pressure 87 mm[Hg] [facility] Work Phone: 9(723)195-997682 [place] [address] 04-18-2023 14:40-0500 Heart rate 91 /min [facility] Work Phone: 2(960)171-052282 [place] [address] 04-18-2023 14:40-0500 Respiratory rate 17 /min [facility] Work Phone: 8(456)133-223482 [place] [address] 04-18-2023 14:40-0500 SaO2% (BldA) [Mass fraction] 98 % [facility] Work Phone: 5(528)383-963582 [place] [address] 04-18-2023 14:40-0500 Systolic blood pressure 138 mm[Hg] [facility] Work Phone: 7(490)847-240582 [place] [address] 03-22-2023 13:40-0400 Body height 170.18 cm [facility] Work Phone: 7(072)282-262082 [place] [address] 03-22-2023 13:40-0400 Body mass index (BMI) [Ratio] 25.5 kg/m2 [facility] Work Phone: 0(643)775-140782 [place] [address] 03-22-2023 13:40-0400 Body weight 73.93 kg [facility] Work Phone: 7(045)599-952882 [place] [address] 03-22-2023 13:40-0400 Diastolic blood pressure 77 mm[Hg] [facility] Work Phone: 8(344)211-845782 [place] [address] 03-22-2023 13:40-0400 Heart rate 89 /min [facility] Work Phone: 4(420)429-506682 [place] [address] 03-22-2023 13:40-0400 Respiratory rate 18 /min [facility] Work Phone: 5(491)446-009182 [place] [address] 03-22-2023 13:40-0400 SaO2% (BldA) [Mass fraction] 99 % [facility] Work Phone: 4(357)032-460182 [place] [address] 03-22-2023 13:40-0400 Systolic blood pressure 114 mm[Hg] [facility] Work Phone: 6(687)758-508282 [place] [address] 02-28-2023 11:12-0400 Body mass index (BMI) [Ratio] 24.9 kg/m2 [facility] Work Phone: 8(095)983-042282 [place] [address] 02-28-2023 11:12-0400 Body weight 72.12 kg [facility] Work Phone: 7(526)215-580582 [place] [address] 02-28-2023 11:12-0400 Diastolic blood pressure 74 mm[Hg] [facility] Work Phone: 2(963)989-225182 [place] [address] 02-28-2023 11:12-0400 Heart rate 103 /min [facility] Work Phone: 7(511)381-396982 [place] [address] 02-28-2023 11:12-0400 Respiratory rate 18 /min [facility] Work Phone: 0(317)816-833982 [place] [address] 02-28-2023 11:12-0400 Systolic blood pressure 109 mm[Hg] [facility] Work Phone: 7(121)337-059682 [place] [address] 02-03-2023 15:12-0400 SaO2% (BldA) [Mass fraction] 97 % [facility] Work Phone: 5(749)279-104782 [place] [address] 02-03-2023 14:58-0400 Body temperature 97 [degF] [facility] Work Phone: 9(391)212-265282 [place] [address] 02-03-2023 14:58-0400 Diastolic blood pressure 71 mm[Hg] [facility] Work Phone: 0(065)868-257282 [place] [address] 02-03-2023 14:58-0400 Heart rate 92 /min [facility] Work Phone: 4(444)546-458482 [place] [address] 02-03-2023 14:58-0400 Respiratory rate 18 /min [facility] Work Phone: 7(390)582-330682 [place] [address] 02-03-2023 14:58-0400 Systolic blood pressure 99 mm[Hg] [facility] Work Phone: 0(367)657-231482 [place] [address] 02-03-2023 13:19-0400 Body height 170.18 cm [facility] Work Phone: 5(114)970-900682 [place] [address] 02-03-2023 13:19-0400 Body weight 71.1 kg [facility] Work Phone: 4(317)746-020582 [place] [address] 02-03-2023 10:30-0400 Inhaled oxygen flow rate 2 L/min [facility] Work Phone: 8(796)564-077782 [place] [address] 02-03-2023 03:59-0400 Body mass index (BMI) [Ratio] 24.5 kg/m2 [facility] Work Phone: 7(190)145-872382 [place] [address] 02-02-2023 21:45-0400 Inhaled oxygen concentration 2 % [facility] Work Phone: 5(113)716-298982 [place] [address] 02-02-2023 17:59-0400 Heart rate 112 /min [facility] Work Phone: 2(325)852-456082 [place] [address] 02-02-2023 17:59-0400 Inhaled oxygen flow rate 2 L/min [facility] Work Phone: 8(223)972-810882 [place] [address] 02-02-2023 17:59-0400 Respiratory rate 18 /min [facility] Work Phone: 7(553)155-106582 [place] [address] 02-02-2023 17:59-0400 SaO2% (BldA) [Mass fraction] 95 % [facility] Work Phone: 2(791)428-517082 [place] [address] 02-02-2023 16:00-0400 Body temperature 97 [degF] [facility] Work Phone: 7(470)238-632382 [place] [address] 02-02-2023 16:00-0400 Diastolic blood pressure 97 mm[Hg] [facility] Work Phone: 4(154)226-643282 [place] [address] 02-02-2023 16:00-0400 Systolic blood pressure 134 mm[Hg] [facility] Work Phone: 5(967)670-371582 [place] [address] 02-02-2023 11:21-0400 Body height 167.64 cm [facility] Work Phone: 8(874)114-578282 [place] [address] 02-02-2023 11:21-0400 Body mass index (BMI) [Ratio] 27.1 kg/m2 [facility] Work Phone: 2(282)496-354282 [place] [address] 02-02-2023 11:21-0400 Body weight 76.2 kg [facility] Work Phone: 3(530)473-785582 [place] [address] 01-03-2023 11:42-0400 Body temperature 98 [degF] [facility] Work Phone: 2(675)107-728482 [place] [address] 01-03-2023 11:42-0400 Diastolic blood pressure 66 mm[Hg] [facility] Work Phone: 4(268)878-967782 [place] [address] 01-03-2023 11:42-0400 Heart rate 92 /min [facility] Work Phone: 3(337)530-689882 [place] [address] 01-03-2023 11:42-0400 Respiratory rate 15 /min [facility] Work Phone: 2(111)203-488282 [place] [address] 01-03-2023 11:42-0400 SaO2% (BldA) [Mass fraction] 100 % [facility] Work Phone: 2(404)854-834282 [place] [address] 01-03-2023 11:42-0400 Systolic blood pressure 101 mm[Hg] [facility] Work Phone: 3(986)771-616982 [place] [address] 01-03-2023 05:29-0400 Body mass index (BMI) [Ratio] 25.9 kg/m2 [facility] Work Phone: 0(860)714-234382 [place] [address] 01-03-2023 05:29-0400 Body weight 73.1 kg [facility] Work Phone: 3(487)125-650782 [place] [address] 01-02-2023 12:06-0400 Body height 167.64 cm [facility] Work Phone: 0(251)009-321282 [place] [address] 01-02-2023 08:20-0400 Inhaled oxygen flow rate 2 L/min [facility] Work Phone: 0(365)637-862082 [place] [address] 01-01-2023 16:36-0400 Body temperature 98.2 [degF] [facility] Work Phone: 6(122)507-923482 [place] [address] 01-01-2023 16:36-0400 Diastolic blood pressure 96 mm[Hg] [facility] Work Phone: 6(685)799-920482 [place] [address] 01-01-2023 16:36-0400 Heart rate 105 /min [facility] Work Phone: 4(442)374-284582 [place] [address] 01-01-2023 16:36-0400 Inhaled oxygen flow rate 2 L/min [facility] Work Phone: 5(372)812-572782 [place] [address] 01-01-2023 16:36-0400 Respiratory rate 18 /min [facility] Work Phone: 1(083)929-091582 [place] [address] 01-01-2023 16:36-0400 SaO2% (BldA) [Mass fraction] 98 % [facility] Work Phone: 8(070)737-808882 [place] [address] 01-01-2023 16:36-0400 Systolic blood pressure 140 mm[Hg] [facility] Work Phone: 5(408)984-577982 [place] [address] 01-01-2023 12:11-0400 Body height 167.64 cm [facility] Work Phone: 1(508)272-125182 [place] [address] 01-01-2023 12:11-0400 Body mass index (BMI) [Ratio] 27.1 kg/m2 [facility] Work Phone: 2(080)531-179282 [place] [address] 01-01-2023 12:11-0400 Body weight 76.3 kg [facility] Work Phone: 9(204)049-325582 [place] [address] 10-01-2022 11:09-0400 Body height 167.[address] Nathaly Lainez Work Phone: 2(054)498-080082 [place] [address] 10-01-2022 11:09-0400 Body mass index (BMI) [Ratio] 25.2 kg/m2 Dr. Nathaly Lainez Work Phone: 1(137)250-627782 [place] [address] 10-01-2022 11:09-0400 Body temperature 95.7 [degF] Dr. Nathaly Lainez Work Phone: 7(240)819-330868 [place] [address] 10-01-2022 11:09-0400 Body weight 70.[address] Nathaly Lainez Work Phone: 2(938)521-492582 [place] [address] 10-01-2022 11:09-0400 Diastolic blood pressure 80 mm[Hg] Dr. Nathaly Lainez Work Phone: 1(650)095-972582 [place] [address] 10-01-2022 11:09-0400 Heart rate 102 /min Dr. Nathaly Lainez Work Phone: 5(062)467-772182 [place] [address] 10-01-2022 11:09-0400 Respiratory rate 24 /min Dr. Nathaly Lainez Work Phone: 5(741)372-312482 [place] [address] 10-01-2022 11:09-0400 SaO2% (BldA) [Mass fraction] 100 % Dr. Nathaly Lainez Work Phone: 1(307)058-401693 [address] 10-01-2022 11:09-0400 Systolic blood pressure 119 mm[Hg] Dr. Nathaly Lainez Work Phone: 5(284)245-390668 [place] [address] 09-18-2022 18:57-0400 Diastolic blood pressure 83 mm[Hg] Dr. Nathaly Lainez Work Phone: 8(142)582-490382 [place] [address] 09-18-2022 18:57-0400 Heart rate 74 /min Dr. Nathaly Lainez Work Phone: 6(176)113-344768 [place] [address] 09-18-2022 18:57-0400 Respiratory rate 16 /min Dr. Nathaly Lainez Work Phone: 4(189)074-674082 [place] [address] 09-18-2022 18:57-0400 SaO2% (BldA) [Mass fraction] 98 % Dr. Nathaly Lainez Work Phone: 9(780)091-722282 [place] [address] 09-18-2022 18:57-0400 Systolic blood pressure 126 mm[Hg] Dr. Nathaly Lainez Work Phone: 1(620)153-806582 [place] [address] 09-18-2022 14:13-0400 Body height 167.[address] Nathaly Lainez Work Phone: 7(273)899-063282 [place] [address] 09-18-2022 14:13-0400 Body mass index (BMI) [Ratio] 25.2 kg/m2 Dr. Nathaly Lainez Work Phone: 9(873)641-536882 [place] [address] 09-18-2022 14:130400 Body temperature 97.6 [degF] Dr. Nathaly Lainez Work Phone: 7(570)321-117282 [place] [address] 09-18-2022 14:130400 Body weight 70.[address] Nathaly Lainez Work Phone: 3(383)911-003682 [place] [address] 09-11-2022 20:19-0400 Diastolic blood pressure 92 mm[Hg] Dr. Nathaly Lainez Work Phone: 2(785)316-639982 [place] [address] 09-11-2022 20:19-0400 Heart rate 101 /min Dr. Nathaly Lainez Work Phone: 7(044)568-146582 [place] [address] 09-11-2022 20:19-0400 Respiratory rate 17 /min Dr. Nathaly Lainez Work Phone: 3(040)877-586882 [place] [address] 09-11-2022 20:19-0400 SaO2% (BldA) [Mass fraction] 96 % Dr. Nathaly Lainez Work Phone: 3(710)734-678382 [place] [address] 09-11-2022 20:19-0400 Systolic blood pressure 142 mm[Hg] Dr. Nathaly Lainez Work Phone: 3(498)794-847582 [place] [address] 09-11-2022 14:27-0400 Body height 170.[address] Nathaly Lainez Work Phone: 5(078)045-885982 [place] [address] 09-11-2022 14:27-0400 Body mass index (BMI) [Ratio] 24.4 kg/m2 Dr. Nathaly Lainez Work Phone: 2(523)817-866082 [place] [address] 09-11-2022 14:27-0400 Body temperature 97.2 [degF] Dr. Nathaly Lainez Work Phone: 0(553)081-622882 [place] [address] 09-11-2022 14:27-0400 Body weight 70.[address] Nathaly Lainez Work Phone: 3(988)294-117282 [place] [address] 09-09-2022 23:43-0400 Diastolic blood pressure 74 mm[Hg] Dr. Nathaly Lainez Work Phone: 4(399)985-187082 [place] [address] 09-09-2022 23:43-0400 Systolic blood pressure 123 mm[Hg] Dr. Nathaly Lainez Work Phone: 4(007)306-013082 [place] [address] 09-09-2022 18:22-0400 Body height 170.[address] Nathaly Lainez Work Phone: 2(146)598-547282 [place] [address] 09-09-2022 18:22-0400 Body mass index (BMI) [Ratio] 24.4 kg/m2 Dr. Nathaly Lainez Work Phone: 5(279)949-065782 [place] [address] 09-09-2022 18:22-0400 Body temperature 97.4 [degF] Dr. Nathaly Lainez Work Phone: 0(070)416-084982 [place] [address] 09-09-2022 18:22-0400 Body weight 70.[address] Nathaly Lainez Work Phone: 5(996)858-344882 [place] [address] 09-09-2022 18:22-0400 Heart rate 111 /min Dr. Nathaly Lainez Work Phone: 1(319)144-101882 [place] [address] 09-09-2022 18:22-0400 Respiratory rate 16 /min Dr. Nathaly Lainez Work Phone: 1(813)703-963682 [place] [address] 09-09-2022 18:22-0400 SaO2% (BldA) [Mass fraction] 99 % Dr. Nathaly Lainez Work Phone: 7(596)147-029082 [place] [address] 09-05-2022 15:02-0400 Respiratory rate 18 /min Dr. Nathaly Lainez Work Phone: 1(020)158-375582 [place] [address] 09-05-2022 12:29-0400 Body height 170.[address] Nathaly Lainez Work Phone: 5(024)838-621982 [place] [address] 09-05-2022 12:29-0400 Body mass index (BMI) [Ratio] 26.3 kg/m2 Dr. Nathaly Lainez Work Phone: 5(989)552-666882 [place] [address] 09-05-2022 12:29-0400 Body temperature 98.3 [degF] Dr. Nathaly Lainez Work Phone: 1(545)878-036682 [place] [address] 09-05-2022 12:29-0400 Body weight 76.[address] Nathaly Lainez Work Phone: 0(414)383-384982 [place] [address] 09-05-2022 12:29-0400 Diastolic blood pressure 90 mm[Hg] Dr. Nathaly Lainez Work Phone: 1(662)723-169882 [place] [address] 09-05-2022 12:29-0400 Heart rate 111 /min Dr. Nathaly Lainez Work Phone: 3(296)307-558782 [place] [address] 09-05-2022 12:29-0400 SaO2% (BldA) [Mass fraction] 98 % Dr. Nathaly Lainez Work Phone: 9(793)808-472282 [place] [address] 09-05-2022 12:29-0400 Systolic blood pressure 139 mm[Hg] Dr. Nathaly Lainez Work Phone: 2(198)209-803482 [place] [address] 09-02-2022 13:40-0400 Body temperature 97.9 [degF] Dr. Nathaly Lainez Work Phone: 0(404)463-894782 [place] [address] 09-02-2022 13:40-0400 Diastolic blood pressure 66 mm[Hg] Dr. Nathaly Lainez Work Phone: 0(356)878-294182 [place] [address] 09-02-2022 13:40-0400 Heart rate 98 /min Dr. Nathaly Lainez Work Phone: 1(024)112-249082 [place] [address] 09-02-2022 13:40-0400 Respiratory rate 18 /min Dr. Nathaly Lainez Work Phone: 0(696)906-193182 [place] [address] 09-02-2022 13:40-0400 SaO2% (BldA) [Mass fraction] 96 % Dr. Nathaly Lainez Work Phone: 1(658)051-660882 [place] [address] 09-02-2022 13:40-0400 Systolic blood pressure 108 mm[Hg] Dr. Nathaly Laniez Work Phone: 2(733)324-262782 [place] [address] 08-31-2022 16:10-0400 Inhaled oxygen flow rate 4 L/min Dr. Nathaly Lainez Work Phone: 8(898)430-280868 [place] [address] 08-31-2022 14:32-0400 Body height 170.[address] Nathaly Lainez Work Phone: 5(255)655-065582 [place] [address] 08-31-2022 14:32-0400 Body weight 70.[address] Nathaly Lainez Work Phone: 2(246)380-834882 [place] [address] 08-31-2022 09:14-0400 Body mass index (BMI) [Ratio] 24.4 kg/m2 Dr. Nathaly Lainez Work Phone: 3(949)684-689882 [place] [address] 08-30-2022 17:01-0400 Diastolic blood pressure 101 mm[Hg] Dr. Nathaly Lainez Work Phone: 5(356)880-278482 [place] [address] 08-30-2022 17:01-0400 Heart rate 118 /min Dr. Nathaly Lainez Work Phone: 6(054)588-491982 [place] [address] 08-30-2022 17:01-0400 Respiratory rate 18 /min Dr. Nathaly Lainez Work Phone: 8(408)606-302882 [place] [address] 08-30-2022 17:01-0400 SaO2% (BldA) [Mass fraction] 97 % Dr. Nathaly Lainez Work Phone: 3(653)245-447582 [place] [address] 08-30-2022 17:01-0400 Systolic blood pressure 142 mm[Hg] Dr. Nathaly Lainez Work Phone: 9(937)988-122082 [place] [address] 08-30-2022 16:13-0400 Body temperature 98.4 [degF] Dr. Nathaly Lainez Work Phone: 8(112)067-782182 [place] [address] 08-30-2022 13:53-0400 Body height 170.[address] Nathaly Lainez Work Phone: 8(176)119-471782 [place] [address] 08-30-2022 13:53-0400 Body mass index (BMI) [Ratio] 24.4 kg/m2 Dr. Nathaly Lainez Work Phone: 1(198)464-844682 [place] [address] 08-30-2022 13:53-0400 Body weight 70.[address] Nathaly Lainez Work Phone: 7(900)242-907668 [place] [address] 08-23-2022 13:03-0400 Body weight 73.[address] Nathaly Lainez Work Phone: 2(267)735-270468 [place] [address] 08-23-2022 13:03-0400 Diastolic blood pressure 81 mm[Hg] Dr. Nathaly Lainez Work Phone: 5(659)795-423468 [place] [address] 08-23-2022 13:03-0400 Heart rate 110 /min Dr. Nathaly Lainez Work Phone: 9(451)833-047268 [place] [address] 08-23-2022 13:03-0400 Respiratory rate 16 /min Dr. Nathaly Lainez Work Phone: 5(137)968-428968 [place] [address] 08-23-2022 13:03-0400 SaO2% (BldA) [Mass fraction] 99 % Dr. Nathaly Lainez Work Phone: 8(332)590-990968 [place] [address] 08-23-2022 13:03-0400 Systolic blood pressure 124 mm[Hg] Dr. Nathaly Lainez Work Phone: 2(882)618-878868 [place] [address] 08-14-2022 16:50-0400 Diastolic blood pressure 68 mm[Hg] Dr. Nathaly Lainez Work Phone: 8(295)194-593668 [place] [address] 08-14-2022 16:50-0400 Heart rate 89 /min Dr. Nathaly Lainez Work Phone: 7(793)933-709968 [place] [address] 08-14-2022 16:50-0400 Respiratory rate 16 /min Dr. Nathaly Lainez Work Phone: 5(905)529-705968 [place] [address] 08-14-2022 16:50-0400 SaO2% (BldA) [Mass fraction] 95 % Dr. Nathaly Lainez Work Phone: 6(059)652-067968 [place] [address] 08-14-2022 16:50-0400 Systolic blood pressure 142 mm[Hg] Dr. Nathaly Lainez Work Phone: 4(007)969-860368 [place] [address] 08-14-2022 13:51-0400 Body temperature 97.8 [degF] Dr. Nathaly Lainez Work Phone: 2(528)007-156782 [place] [address] 08-14-2022 13:37-0400 Body height 170.[address] Nathaly Lainez Work Phone: 2(367)783-867082 [place] [address] 08-14-2022 13:37-0400 Body mass index (BMI) [Ratio] 24.7 kg/m2 Dr. Nathaly Lainez Work Phone: 1(496)021-933682 [place] [address] 08-14-2022 13:37-0400 Body weight 71.[address] Nathaly Lainez Work Phone: 6(800)189-644782 [place] [address] 08-10-2022 07:07-0500 Body height 170.[address] Nathaly Lainez Work Phone: 2(246)781-644782 [place] [address] 08-10-2022 07:07-0500 Body weight 69.[address] Nathaly Lainez Work Phone: 0(516)615-782882 [place] [address] 08-09-2022 15:33-0500 Body mass index (BMI) [Ratio] 24.1 kg/m2 Dr. Nathaly Lainez Work Phone: 9(296)521-970082 [place] [address] 08-09-2022 10:47-0500 Body temperature 98 [degF] Dr. Nathaly Lainez Work Phone: 4(167)751-547482 [place] [address] 08-09-2022 10:47-0500 Diastolic blood pressure 89 mm[Hg] Dr. Nathaly Lainez Work Phone: 8(360)686-437682 [place] [address] 08-09-2022 10:47-0500 Heart rate 103 /min Dr. Nathaly Lainez Work Phone: 0(601)399-677682 [place] [address] 08-09-2022 10:47-0500 Respiratory rate 18 /min Dr. Nathaly Lainez Work Phone: 8(489)634-055182 [place] [address] 08-09-2022 10:47-0500 SaO2% (BldA) [Mass fraction] 97 % Dr. Nathaly Lainez Work Phone: 3(303)330-776682 [place] [address] 08-09-2022 10:47-0500 Systolic blood pressure 136 mm[Hg] Dr. Nathaly Lainez Work Phone: 2(646)703-041882 [place] [address] 08-06-2022 16:45-0500 Body temperature 97.8 [degF] Dr. Nathaly Lainez Work Phone: 0(322)237-187282 [place] [address] 08-06-2022 16:45-0500 Diastolic blood pressure 78 mm[Hg] Dr. Nathaly Lainez Work Phone: 4(602)868-393182 [place] [address] 08-06-2022 16:45-0500 Heart rate 76 /min Dr. Nathaly Lainez Work Phone: 1(247)975-718582 [place] [address] 08-06-2022 16:45-0500 Respiratory rate 16 /min Dr. Nathaly Lainez Work Phone: 5(372)882-394882 [place] [address] 08-06-2022 16:45-0500 SaO2% (BldA) [Mass fraction] 99 % Dr. Nathaly Lainez Work Phone: 4(750)402-212982 [place] [address] 08-06-2022 16:45-0500 Systolic blood pressure 143 mm[Hg] Dr. Nathaly Lainez Work Phone: 9(453)803-513082 [place] [address] 08-06-2022 14:43-0500 Body mass index (BMI) [Ratio] 24.2 kg/m2 Dr. Nathaly Lainez Work Phone: 6(506)791-807182 [place] [address] 08-06-2022 14:43-0500 Body weight 70.[address] Nathaly Lainez Work Phone: 5(704)883-904782 [place] [address] 08-03-2022 16:26-0500 Diastolic blood pressure 74 mm[Hg] Dr. Nathaly Lainez Work Phone: 3(377)481-703482 [place] [address] 08-03-2022 16:26-0500 Heart rate 107 /min Dr. Nathaly Lainez Work Phone: 7(160)633-307182 [place] [address] 08-03-2022 16:26-0500 Respiratory rate 18 /min Dr. Nathaly Lainez Work Phone: 7(295)928-675482 [place] [address] 08-03-2022 16:26-0500 SaO2% (BldA) [Mass fraction] 94 % Dr. Nathaly Lainez Work Phone: 1(329)306-260282 [place] [address] 08-03-2022 16:26-0500 Systolic blood pressure 114 mm[Hg] Dr. Nathaly Lainez Work Phone: 6(337)106-488482 [place] [address] 08-03-2022 12:19-0500 Body height 170.[address] Nathaly Lainez Work Phone: 7(947)355-902882 [place] [address] 08-03-2022 12:19-0500 Body mass index (BMI) [Ratio] 25.2 kg/m2 Dr. Nathaly Lainez Work Phone: 1(952)576-161382 [place] [address] 08-03-2022 12:19-0500 Body temperature 97.7 [degF] Dr. Nathaly Lainez Work Phone: 9(111)585-998282 [place] [address] 08-03-2022 12:19-0500 Body weight 73.[address] Nathaly Lainez Work Phone: 8(946)391-851782 [place] [address] 07-25-2022 12:13-0500 Diastolic blood pressure 90 mm[Hg] Dr. Nathaly Lainez Work Phone: 1(458)452-420182 [place] [address] 07-25-2022 12:13-0500 Heart rate 78 /min Dr. Nathaly Lainez Work Phone: 7(705)854-234482 [place] [address] 07-25-2022 12:13-0500 Respiratory rate 18 /min Dr. Nathaly Lainez Work Phone: 1(936)611-055982 [place] [address] 07-25-2022 12:13-0500 SaO2% (BldA) [Mass fraction] 98 % Dr. Nathaly Lainez Work Phone: 6(347)230-893382 [place] [address] 07-25-2022 12:13-0500 Systolic blood pressure 142 mm[Hg] Dr. Nathaly Lainez Work Phone: 2(674)290-376582 [place] [address] 07-25-2022 09:16-0500 Body height 170.[address] Nathaly Lainez Work Phone: 4(657)769-250782 [place] [address] 07-25-2022 09:16-0500 Body mass index (BMI) [Ratio] 26.3 kg/m2 Dr. Nathaly Lainez Work Phone: [facility] 07-25-2022 09:16-0500 Body temperature 97.4 [degF] Dr. Nathaly Lainez Work Phone: [facility] 07-25-2022 09:16-0500 Body weight 76.[address] Nathaly Lainez Work Phone: [facility] 06-08-2022 14:09-0500 Body height 167.6 cm Jerry Robert PA-C Work Phone: [facility] 06-08-2022 14:09-0500 Body mass index (BMI) [Ratio] 25.02 kg/m2 Jerry Robert PA-C Work Phone: [facility] 06-08-2022 14:09-0500 Body weight 70.31 kg Jerry Robert PA-C Work Phone: [facility] 06-08-2022 14:09-0500 Diastolic blood pressure 95 mm[Hg] Jerry Robert PA-C Work Phone: [facility] 06-08-2022 14:09-0500 Heart rate 117 /min Jerry Robert PA-C Work Phone: [facility] 06-08-2022 14:09-0500 Systolic blood pressure 135 mm[Hg] Jerry Robert PA-C Work Phone: [facility] 05-19-2022 19:29-0500 Heart rate 102 /min Dr. Nathaly Lainez Work Phone: [facility] 05-19-2022 19:29-0500 SaO2% (BldA) [Mass fraction] 97 % Dr. Nathaly Lainez Work Phone: [facility] 05-19-2022 14:45-0500 Body height 170.[address] Nathaly Lainez Work Phone: [facility] Work Phone: 05-19-2022 14:45-0500 Body mass index (BMI) [Ratio] 24.3 kg/m2 Dr. Nathaly Lainez Work Phone: 9(822)556-657282 [place] [address] 05-19-2022 14:45-0500 Body temperature 96 [degF] Dr. Nathaly Lainez Work Phone: 4(045)068-287282 [place] [address] 05-19-2022 14:45-0500 Body weight 70.[address] Nathaly Lainez Work Phone: 2(483)707-536182 [place] [address] 05-19-2022 14:45-0500 Diastolic blood pressure 87 mm[Hg] Dr. Nathaly Lainez Work Phone: 9(991)648-883082 [place] [address] 05-19-2022 14:45-0500 Respiratory rate 18 /min Dr. Nathaly Lainez Work Phone: 5(894)473-065882 [place] [address] 05-19-2022 14:45-0500 Systolic blood pressure 127 mm[Hg] Dr. Nathaly Lainez Work Phone: 6(605)184-357982 [place] [address] 05-10-2022 00:56-0500 Diastolic blood pressure 75 mm[Hg] Dr. Nathaly Lainez Work Phone: 7(979)835-878982 [place] [address] 05-10-2022 00:56-0500 Heart rate 101 /min Dr. Nathaly Lainez Work Phone: 9(765)592-995182 [place] [address] 05-10-2022 00:56-0500 Respiratory rate 17 /min Dr. Nathaly Lainez Work Phone: 5(478)242-106782 [place] [address] 05-10-2022 00:56-0500 SaO2% (BldA) [Mass fraction] 94 % Dr. Nathaly Lainez Work Phone: 9(401)132-340682 [place] [address] 05-10-2022 00:56-0500 Systolic blood pressure 118 mm[Hg] Dr. Nathaly Lainez Work Phone: 8(748)002-297182 [place] [address] 05-09-2022 19:01-0500 Body height 170.[address] Nathaly Lainez Work Phone: 6(479)523-803182 [place] [address] Work Phone: 05-09-2022 19:01-0500 Body mass index (BMI) [Ratio] 24.3 kg/m2 Dr. Nathaly Lainez Work Phone: [facility] 05-09-2022 19:01-0500 Body temperature 97.5 [degF] Dr. Nathaly Lainez Work Phone: [facility] 05-09-2022 19:01-0500 Body weight 70.[address] Nathaly Lainez Work Phone: [facility] 04-18-2022 14:04-0500 Body height 170.18 cm [facility] Work Phone: 04-18-2022 14:04-0500 Body mass index (BMI) [Ratio] 24.7 kg/m2 [facility] 04-18-2022 14:04-0500 Body temperature 97.2 [degF] [facility] 04-18-2022 14:04-0500 Body weight 71.6 kg [facility] 04-18-2022 14:04-0500 Diastolic blood pressure 88 mm[Hg] [facility] 04-18-2022 14:04-0500 Heart rate 115 /min [facility] 04-18-2022 14:04-0500 Respiratory rate 16 /min [facility] 04-18-2022 14:04-0500 SaO2% (BldA) [Mass fraction] 97 % [facility] 04-18-2022 14:04-0500 Systolic blood pressure 139 mm[Hg] [facility] 04-17-2022 13:53-0500 Body height 170.18 cm [facility] Work Phone: 04-17-2022 13:53-0500 Body mass index (BMI) [Ratio] 24.3 kg/m2 [facility] 04-17-2022 13:53-0500 Body temperature 97.9 [degF] [facility] 04-17-2022 13:53-0500 Body weight 70.3 kg [facility] 04-17-2022 13:53-0500 Diastolic blood pressure 80 mm[Hg] [facility] 04-17-2022 13:53-0500 Heart rate 130 /min [facility] 04-17-2022 13:53-0500 Respiratory rate 18 /min [facility] 04-17-2022 13:53-0500 SaO2% (BldA) [Mass fraction] 97 % [facility] 04-17-2022 13:53-0500 Systolic blood pressure 125 mm[Hg] [facility] 03-27-2022 12:26-0400 Diastolic blood pressure 90 mm[Hg] [facility] 03-27-2022 12:26-0400 Heart rate 103 /min [facility] 03-27-2022 12:26-0400 Respiratory rate 16 /min [facility] 03-27-2022 12:26-0400 SaO2% (BldA) [Mass fraction] 96 % [facility] 03-27-2022 12:26-0400 Systolic blood pressure 130 mm[Hg] [facility] 03-27-2022 10:29-0400 Body height 170.18 cm [facility] Work Phone: 03-27-2022 10:29-0400 Body mass index (BMI) [Ratio] 24.8 kg/m2 [facility] 03-27-2022 10:29-0400 Body temperature 96.7 [degF] [facility] 03-27-2022 10:29-0400 Body weight 72.07 kg [facility] 08-13-2021 15:21-0500 Diastolic blood pressure 80 mm[Hg] Pcp Unknown [facility] 08-13-2021 15:21-0500 Heart rate 73 /min Pcp Unknown [facility] 08-13-2021 15:21-0500 Respiratory rate 16 /min Pcp Unknown [facility] 08-13-2021 15:21-0500 SaO2% (BldA) [Mass fraction] 99 % Pcp Unknown [facility] 08-13-2021 15:21-0500 Systolic blood pressure 131 mm[Hg] Pcp Unknown [facility] 08-13-2021 12:41-0500 Body temperature 97.52 [degF] Pcp Unknown [facility] Encounters Encounter Date Encounter Type Care Provider Facility Start: 03-31-2025 ambulatory Lei Justin Fac ility:[facility] Start: 03-30-2025 ambulatory Zohreh Mckeon VSC Fa cility:[facility] Start: 03-30-2025 Evaluation and management of inpatient Lei Justin Facility:[facility] Start: 02-11[facility]20[facility] Work [facility]: Start: 02-10-2025 Dr. Riccardo Shaikh DO [facility] Work Phone: Start: 02-09-2025 Dr. Riccardo Shaikh DO [facility] Work Phone: Start: 02-08-2025 Dr. Talisha chen MD [facility] Work Phone: Start: 02-07-2025 Dr. Talisha chen MD [facility] Work Phone: Start: 02-06-2025 Dr. Talisha chen MD [facility] Work Phone: Start: 02-05-2025 Dr. Talisha chen MD [facility] Work Phone: Start: 02-04-2025 Dr. Talisha chen MD [facility] Work Phone: Start: 02-03-2025 Dr. Talisah chen MD [facility] Work Phone: Start: 02-02-2025 Dr. Talisha chen MD [facility] Work Phone: Start: 02-01-2025 Dr. Lei Justin DO [facility] Work Phone: Start: 01-31-2025 ambulatory Lei Justin Fac ility:[facility] Start: 01-31-2025 End: 02-11-2025 Evaluation and management of inpatient Zohrehdmitriy Mckeon [employer] Work Phone: -[facility] Start: 01-31-2025 End: 02-11-2025 Dr. Riccardo Shaikh -[facility] Work Phone: Start: 01-31-2025 Dr. Lei Justin DO [facility] Work Phone: Start: 01-30-2025 Dr. Nicole Trujillo DO -[facility] Work Phone: Start: 01-29-2025 ambulatory Lei Justin Fac ility:[facility] Start: 01-29-2025 Evaluation and management of inpatient Dr. Latricia Yao DO [facility] Work Phone: Start: 01-29-2025 observation encounter Zohreh Mckeon [employer] TECHNICIAN-C Work Phone: -[facility] Start: 01-29-2025 Dr. Latricia Manriquez [facility] Work Phone: Start: 12-12-2024 End: 12-12-2024 Zohreh Mckeon [employer] TECHNICIAN-C Work Phone: -Emergency Department Work Phone: Start: 12-12-2024 End: 12-12-2024 Emergency department patient visit Zohreh Mckeon [employer]TE[employer] TECHNICIAN-C Work Phone: -Emergency Department Start: 09-29-2024 End: 09-29-2024 [facility] Work Phone: -Emergency Department Work Phone: Start: 09-29-2024 End: 09-29-2024 Emergency department patient visit [facility] Work Phone: [facility] Work Phone: Start: 09-24-2024 ambulatory Zohreh Mckeon [facility] Fa cility:[facility] Start: 09-23-2024 ambulatory Zohreh Mckeon [facility] Fa cility:[facility] Start: 09-22-2024 ambulatory Zohreh Mckeon [facility] Fa cility:[facility] Start: 09-21-2024 End: 09-21-2024 [facility] Work Phone: -Emergency Department Work Phone: Start: 09-21-2024 End: 09-21-2024 Emergency department patient visit [facility] Work Phone: [facility] Work Phone: Start: 09-21-2024 ambulatory [facility] Fa cility:[facility] Start: 09-20-2024 ambulatory [facility] Fa cility:[facility] Start: 09-19-2024 ambulatory [facility] Fa cility:[facility] Start: 09-18-2024 ambulatory [facility] Fa cility:[facility] Start: 09-17-2024 ambulatory Nichelle Mcneil [place]:[facility] Start: 09-16-2024 Dr. Latricia Aaron [...] Inpatient Physicians Work Phone: Start: 09-09-2024 ambulatory [facility] Facility :[facility] Start: 09-09-2024 End: 09-16-2024 Evaluation and management of inpatient [facility] Work Phone: [facility] Work Phone: Start: 09-09-2024 End: 09-16-2024 Dr. Latricia Aaron MD -[facility] Work Phone: Start: 09-08-2024 Dr. Brenda Posadas MD -[facility] Work Phone: Start: 09-07-2024 ambulatory Brenda Posadas Facility:[facility] Start: 09-07-2024 observation encounter [facility] Work Phone: [facility] Work Phone: Start: 09-07-2024 Dr. Rosaura friedman MD -Progressive Care Unit Work Phone: Start: 09-05-2024 End: 09-05-2024 [facility] Work Phone: -Emergency Department Work Phone: Start: 09-05-2024 End: 09-05-2024 Emergency department patient visit [facility] Work Phone: [facility] Work Phone: Start: 09-02-2024 Dr. Latricia Aaron MD -[facility] Work Phone: Start: 09-01-2024 ambulatory Zohreh Mckeon [facility] Fa cility:[facility] Start: 09-01-2024 Dr. Alli Brito MD -[facility] Start: 09-01-2024 Dr. Latricia Aaron MD [...] End: 09-02-2024 Evaluation and management of inpatient [facility] Work Phone: [facility] Work Phone: Start: 08-26-2024 End: 09-02-2024 Dr. Brenda Posadas MD -Intensive Care Unit Work Phone: Start: 08-26-2024 ambulatory Nicole Trujillo Facility:[facility] Start: 08-26-2024 ambulatory [facility] Fa cility:[facility] Start: 08-26-2024 Dr. Riccardo Ng MD -[facility] -[facility] Start: 08-01-2024 End: 08-01-2024 Dr. Riccardo Hillman DO -Emergency Departme nt Work Phone: Start: 08-01-2024 End: 08-01-2024 Emergency department patient visit [facility] Facility:[facility] Start: 07-17-2024 ambulatory [facility] Fa cility:[facility] Start: 07-11-2024 End: 07-11-2024 Dr. Nicole Trujillo DO -Medical Out Work Phone: Start: 07-11-2024 End: 07-11-2024 ambulatory [facility] Facility:[facility] Start: 07-10-2024 End: 07-10-2024 Dr. Nicole Trujillo DO -Medical Out Work Phone: Start: 07-10-2024 End: 07-10-2024 ambulatory [facility] Facility:[facility] Start: 07-09-2024 ambulatory Nicole Trujillo Facility:[facility] Start: 07-08-2024 ambulatory [facility] Fa cility:[facility] Start: 07-07-2024 End: 07-07-2024 Dr. Nicole Trujillo DO -[facility] Out Work Phone: Start: 07-07-2024 End: 07-07-2024 ambulatory [facility] Facility:[facility] Start: 07-06-2024 End: 07-06-2024 Dr. Nicole Trujillo DO -[facility] Out Work Phone: Start: 07-06-2024 End: 07-06-2024 ambulatory Nicole Trujillo Facility:[facility] Start: 07-05-2024 End: 07-05-2024 Dr. Nicole Trujillo DO -[facility] Out Work Phone: Start: 07-05-2024 End: 07-05-2024 ambulatory Nicole Trujillo Facility:[facility] Start: 07-04-2024 End: 07-04-2024 Dr. Nicole Trujillo DO -[facility] Out Work Phone: Start: 07-04-2024 End: 07-04-2024 ambulatory [facility] Facility:[facility] Start: 07-03-2024 Dr. Nicole Trujillo DO -[facility] Work Phone: Start: 07-02-2024 Dr. Nicole Trujillo DO -[facility] Work Phone: Start: 07-01-2024 Dr. Nicole Trujillo DO -[facility] Work Phone: Start: 06-30-2024 Dr. Nicole Trujillo DO -[facility] Work Phone: Start: 06-29-2024 End: 07-03-2024 Evaluation and management of inpatient Brenda Posadas Facility:[facility] Start: 06-29-2024 End: 07-03-2024 Dr. Nicole Trujillo DO -[facility] 3 Work Phone: Start: 06-29-2024 ambulatory Brenda Posadas [facility] Start: 05-23-2024 End: 05-24-2024 Emergency department patient visit DR RAYMUNDO VIEIRA DO [facility] Start: 04-29-2024 Dr. Talisha chen MD -[facility] Work Phone: Start: 04-28-2024 Dr. Talisha chen MD -[facility] Work Phone: Start: 04-25-2024 ambulatory [facility] Facility:[facility] Start: 04-25-2024 End: 04-29-2024 Evaluation and management of inpatient [facility] Facility:[facility] Start: 04-25-2024 End: 04-29-2024 Dr. [...] reminder.) Start: 11-20-2023 Telephone encounter Stephanie Whiting [facility] Comment on above: Orders ([facility] defer ral) Start: 10-22-2023 Telephone encounter Stephanie Whiting [facility] Comment on above: Orders ([facility] order contact/SNF ltr) Start: 10-18-2023 End: 10-19-2023 ambulatory [facility] [facility] Facility[facility] [facility] Start: 10-18-2023 Telephone encounter Diya Patten MD Work Phone: [facility] Comment on above: returned nursing hair e call; Patient Update Start: 10-15-2023 End: 10-15-2023 Emergency department patient visit [facility] Work Phone: Start: 10-12-2023 Registered Referred [facility] Start: 10-09-2023 Telephone encounter Diya Patten MD Work Phone: [facility] Start: 10-08-2023 Registered Referred [facility] Start: 10-04-2023 Telephone encounter Diya Patten MD Work Phone: [facility] Comment on above: Patient Update Start: 10-02-2023 Telephone encounter Diya Patten MD Work Phone: [facility] Comment on above: Contact Center Call; Patient Update; PHYSICIAN INSTRUCTIONS Start: 10-01-2023 Telephone encounter Diya Patten MD Work Phone: [facility] Comment on above: Patient Update Start: 10-01-2023 Registered Referred [facility] Start: 09-29-2023 Registered Referred [facility] Start: 09-27-2023 Telephone encounter Diya Patten MD Work Phone: [facility] Comment on above: Patient Question; Ab scess Start: 09-24-2023 Registered Referred [facility] Start: 09-17-2023 Registered Referred [facility] Work Phone: [facility] Start: 09-12-2023 Telephone encounter Diya Patten MD Work Phone: [facility] Comment on above: Appointment; Radiolo gy XR Start: 09-10-2023 End: 09-10-2023 ambulatory [facility] Work Phone: [facility] Work Phone: Start: 09-10-2023 End: 09-10-2023 Departed Referred [facility] Work Phone: [facility] Start: 09-02-2023 End: 09-07-2023 Evaluation and management of inpatient [facility] Facility[facility] Start: 09-02-2023 End: 09-02-2023 Emergency department patient visit [facility] Work Phone: [facility]Emergency [facility] Work Phone: Start: 06-19-2023 End: 06-19-2023 Emergency department patient visit [facility] Work Phone: [facility]Emergency Department Work Phone: Start: 06-18-2023 Registered Rec[facility]ring [facility] Work Phone: [facility]Patient Link Work Phone: Start: 06-16-2023 Non-patient / Non-visit [facility] Work Phone: [facility] Work Phone: Start: 06-15-2023 Non-patient / Non-visit [facility] Work Phone: [facility] Work Phone: Start: 06-14-2023 Non-patient / Non-visit [facility] Work Phone: [facility] Work Phone: Start: 06-13-2023 Non-patient / Non-visit [facility] Work Phone: [facility] Work Phone: Start: 06-13-2023 End: 06-16-2023 Evaluation and management of inpatient [facility] Work Phone: [facility]Progressive Care Unit Work Phone: Start: 05-26-2023 End: 05-26-2023 Emergency department patient visit [facility] Work Phone: [facility]Emergency Department Work Phone: Start: 05-22-2023 End: 05-22-2023 Emergency department patient visit [facility] Work Phone: [facility]Emergency Department Work Phone: Start: 05-07-2023 Non-patient / Non-visit [facility] Work Phone: [facility] Work Phone: Start: 05-06-2023 Non-patient / Non-visit [facility] Work Phone: [facility] Start: 05-06-2023 Non-patient / Non-visit [facility] Work Phone: [facility] Work Phone: Start: 05-05-2023 Non-patient / Non-visit [facility] Work Phone: [facility] Start: 05-05-2023 Non-patient / Non-visit [facility] Work Phone: [facility] Work Phone: Start: 05-04-2023 Non-patient / Non-visit [facility] Work Phone: [facility] Work Phone: Start: 05-04-2023 Non-patient / Non-visit [facility] Work Phone: [facility] Start: 05-03-2023 End: 05-07-2023 Evaluation and management of inpatient [facility] Work Phone: [facility] Work Phone: Start: 04-18-2023 End: 04-18-2023 ambulatory [facility] Work Phone: [facility] Work Phone: Start: 04-18-2023 End: 04-18-2023 Patient encounter procedure [facility] Work Phone: [facility] Work Phone: Start: 04-05-2023 End: 04-05-2023 ambulatory [facility] Work Phone: [facility] Work Phone: Start: 04-05-2023 End: 04-05-2023 Patient encounter procedure [facility] Work Phone: [facility]Sleep Lab Work Phone: Start: 03-22-2023 End: 03-22-2023 Patient encounter procedure [facility] Work Phone: [facility] Work Phone: Start: 02-28-2023 End: 02-28-2023 Patient encounter procedure [facility] Work Phone: [facility] Work Phone: Start: 02-06-2023 Non-patient / Non-visit [facility] Work Phone: [facility] Work Phone: Start: 02-02-2023 Non-patient / Non-visit [facility] Work Phone: [facility] Work Phone: Start: 02-02-2023 End: 02-03-2023 Evaluation and management of inpatient [facility] Work Phone: [facility] Work Phone: Start: 02-02-2023 End: 02-03-2023 [facility] Work Phone: Start: 01-03-2023 Non-patient / Non-visit [facility] Work Phone: [facility] Work Phone: Start: 01-02-2023 Non-patient / Non-visit [facility] Work Phone: [facility] Work Phone: Start: 01-01-2023 Non-patient / Non-visit [facility] Work Phone[facility] Work Phone: Start: 01-01-2023 End: 01-03-2023 Evaluation and management of inpatient [facility] Work Phone: [facility] Work Phone: Start: 10-01-2022 End: 10-01-2022 Emergency department patient visit Dr. Nathaly Lainez Work Phone: [facility] Work Phone: Start: 10-01-2022 End: 10-01-2022 Dr. Nathaly Lainez Work Phone: [facility]Emergency Department Start: 09-18-2022 End: 09-18-2022 Emergency department patient visit Dr. Nathaly Lainez Work Phone: [facility] Work Phone: Start: 09-18-2022 End: 09-18-2022 Dr. Nathaly Lainez Work Phone: [facility]Emergency Department Start: 09-11-2022 End: 09-11-2022 Emergency department patient visit Dr. Nathaly Lainez Work Phone: [facility] Work Phone: Start: 09-11-2022 End: 09-11-2022 Dr. Nathaly Lainez Work Phone: [facility]Emergency Department Start: 09-09-2022 End: 09-10-2022 Emergency department patient visit Dr. Nathaly Lainez Work Phone: [facility]Emergency Department Start: 09-09-2022 End: 09-10-2022 Dr. Nathaly Lainez Work Phone: [facility]Emergency Department Start: 09-08-2022 Non-patient / Non-visit Dr. Rashida Lainez Work Phone: [facility] Start: 09-08-2022 End: 09-08-[address] Nathaly Lainez Work Phone: [facility] Work Phone: Start: 09-08-2022 End: 09-08-[address] Nathaly Lainez Work Phone: [facility]Cardiovascular Services Start: 09-08-2022 End: 09-08-2022 Dr. Nathaly Lainez Work Phone: [facility] Start: 09-05-2022 Non-patient / Non-visit Dr. Rashida Lainez Work Phone: [facility] Start: 09-05-2022 End: 09-05-2022 Emergency department patient visit Dr. Nathaly Lainez Work Phone: [facility]Emergency Department Start: 09-05-2022 End: 09-05-2022 Dr. Nathaly Lainez Work Phone: [facility]Emergency Department Start: 09-04-2022 ambulatory JEISON FORDE DPM Faci lity:R Start: 09-02-2022 Non-patient / Non-visit Dr. Rashida Lainez Work Phone: [facility] In[facility]icians Start: 09-02-2022 Dr. Nathaly reyes Work Phone: [facility] Start: 09-01-2022 Non-patient / Non-visit Dr. Rashida Lainez Work Phone: [facility] Start: 09-01-2022 Dr. Nathaly reyes Work Phone: [facility] Start: 08-31-2022 Non-patient / Non-visit Dr. Rashida Lainez Work Phone: [facility] Start: 08-31-2022 Dr. Nathaly reyes Work Phone: [facility]icians Start: 08-31-2022 Non-patient / Non-visit Dr. Rashida Lainez Work Phone: [facility] Start: 08-31-2022 Dr. Nathaly reyes Work Phone: [facility] Start: 08-30-2022 Non-patient / Non-visit Dr. Rashida Lainez Work Phone: [facility] In[facility]icians Start: 08-30-2022 Dr. Nathaly reyes Work Phone: [phone] [place] [address] Inpatient Physicians Start: 08-30-2022 End: 09-02-2022 Evaluation and management of inpatient [facility] Start: 08-30-2022 End: 09-02-2022 Dr. Nathaly Lainez Work Phone: [phone] [address] [place], [place] [address]Medical Surgical 3 Start: 08-23-2022 End: 08-23-[address] Nathaly Lainez Work Phone: [phone] [place] [address] Vascular Surgery Start: 08-23-2022 End: 08-23-2022 Dr. Nathaly Lainez Work Phone: [phone] [place] [address] Vascular Surgery Start: 08-17-2022 Non-patient / Non-visit Dr. Rashida Lainez Work Phone: [phone] [place] [address]-BVS Start: 08-17-2022 End: 08-17-[address] Nathaly Lainez Work Phone: [phone] [place] [address]-Cardiovascular Services Start: 08-17-2022 End: 08-17-2022 Dr. Nathaly Lainez Work Phone: [phone] [place] [address]-BVS Start: 08-14-2022 End: 08-14-2022 Emergency department patient visit Dr. Nathaly Lainez Work Phone: [phone] [place] [address]-Emergency Department Start: 08-14-2022 End: 08-14-2022 Dr. Nathaly Lainez Work Phone: [phone] [address]-Emergency Department Start: 08-10-2022 Non-patient / Non-visit Dr. Rashida Lainez Work Phone: [phone] [place] [address]-BVS Start: 08-10-2022 Dr. Nathaly reyes Work Phone: [phone] [place] [address] Start: 08-10-2022 End: 08-10-2022 Admission to same day surgery center Dr. Nathaly Lainez Work Phone: [facility]/Special Procedures Start: 08-10-2022 End: 08-10-[address] Nathaly Lainez Work Phone: [facility] Work Phone: Start: 08-10-2022 End: 08-10-2022 Dr. Nathaly Lainez Work Phone: [facility]Special Procedures Start: 08-09-2022 End: 08-09-[address] Nathaly Lainez Work Phone: [phone] [place] [address] Vascular Surgery Start: 08-09-2022 End: 08-09-2022 Dr. Nathaly Lainez Work Phone: [phone] [place] [address] Vascular Surgery Start: 08-06-2022 End: 08-06-2022 Emergency department patient visit Dr. Nathaly Lainez Work Phone: [facility]-Emergency Department Start: 08-06-2022 End: 08-06-2022 Dr. Nathaly Lainez Work Phone: [phone] [place] [address]-Emergency Department Start: 08-03-2022 End: 08-03-2022 Emergency department patient visit Dr. Nathaly Lainez Work Phone: [phone] [place] [address]-Emergency Department Start: 08-03-2022 End: 08-03-2022 Dr. Nathaly Lainez Work Phone: [facility]-Emergency Department Start: 07-25-2022 End: 07-25-2022 Emergency department patient visit Dr. Nathaly Lainez Work Phone: [facility]-Emergency Department Start: 07-25-2022 End: 07-25-2022 Dr. Nathaly Lainez Work Phone: [phone] [place] [address]-Emergency Department Start: 06-29-2022 End: 06-29-[address] Nathaly Lainez Work Phone: [facility]-Outpatient Bone Densitometry Start: 06-29-2022 End: 06-29-2022 Dr. Nathaly Lainez Work Phone: [facility]Outpatient [facility] D[facility] Start: 06-21-[address] Nathaly Lainez Work Phone: [facility]-Physical Therapy Start: 06-21-2022 Dr. Nathaly reyes Work Phone: [facility]Physical Therapy Start: 06-08-2022 End: 06-08-2022 Postop follow up visit related to original px Jerry Jones PA-C Work Phone: [facility] [place] Comment on above: Closed 3-part fractu re of proximal humerus, right, with routine healing, subsequent encounter (Primary Dx) Start: 05-19-2022 End: 05-19-2022 Emergency department patient visit Dr. Nathaly Lainez Work Phone: [facility]Emergency Department Start: 05-19-2022 End: 05-19-2022 Dr. Nathaly Lainez Work Phone: [facility]Emergency Department Start: 05-09-2022 End: 05-10-2022 Emergency department patient visit Dr. Nathaly Lainez Work Phone: [facility]-Emergency Department Start: 05-02-2022 End: 05-03-2022 ambulatory [facility] Start: 04-24-2022 End: 04-24-[address] Nathaly Lainez Work Phone: [facility] Start: 04-18-2022 End: 04-18-2022 Emergency department patient visit [facility]Emergency Department Start: 04-17-2022 End: 04-17-2022 Emergency department patient visit [facility]Emergency Department Start: 03-27-2022 End: 03-27-2022 Emergency department patient visit [facility]Emergency Department Start: 08-13-2021 End: 08-13-2021 Emergency department patient visit Alex Tapia [facility] Emergency 16 Start: 08-25-2019 End: 08-25-2019 Patient encounter procedure [facility] Start: 07-20-2018 End: 07-21-2018 Patient encounter procedure [facility] Start: 06-08-2018 End: 06-12-2018 Evaluation and management of inpatient [facility] Start: 12-14-2017 End: 12-14-2017 Emergency department patient visit UNKNOWN PROVIDER [facility] Start: 11-30-2017 End: 12-05-2017 Patient encounter procedure [facility] Procedures Date Procedure Procedure Detail Performing Clinician Start: 02-10-2025 Blood count smear mcrscp w/mnl difrntl wbc count Zohreh Mckeon [employer]INTE[employer]CE TECHNICIAN-C Work Phone: Start: 02-10-2025 Estimated creatinine clearance Zohreh Mckeon [employer] MAINTENANCE TECHNICIAN-C Work Phone: Start: 02-10-2025 Mean corpuscular hemoglobin concentration determination Zohreh Mckeon [employer] MAINTENANCE TECHNICIAN-C Work Phone: Start: 02-10-2025 Nucleated red blood cell count procedure Zohreh Mckeon [employer] MAINTENANCE TECHNICIAN-C Work Phone: Start: 02-10-2025 Platelet mean volume determination Zohreh Mckeon [employer] MAINTENANCE TECHNICIAN-C Work Phone: Start: 02-09-2025 Vitamin D, 25-hydroxy measurement Zohreh Mckeon [employer] MAINTENANCE TECHNICIAN-C Work Phone: Start: 01-31-2025 Benzodiazepine measurement, urine Zohreh Mckeon [employer] MAINTENANCE TECHNICIAN-C Work Phone: Start: 01-31-2025 Cocaine measurement, urine Zohreh pierce [employer] MAINTENANCE TECHNICIAN-C Work Phone: Start: 01-31-2025 Methadone measurement, urine Zohreh Mckeon [employer] MAINTENANCE TECHNICIAN-C Work Phone: Start: 01-31-2025 Urine cannabinoid measurement Zohreh Mckeon [employer] MAINTENANCE TECHNICIAN-C Work Phone: Start: 01-31-2025 Urine microscopy: red cells Zohreh Mckeon [employer] MAINTENANCE TECHNICIAN-C Work Phone: Start: 01-31-2025 Urine opiate measurement Zohreh flores [employer] MAINTENANCE TECHNICIAN-C Work Phone: Start: 01-31-2025 Urnls dip stick/tablet reagent auto microscopy Zohreh Mckeon [employer] MAINTENANCE TECHNICIAN-C Work Phone: Start: 01-31-2025 Serum inorganic phosphate measurement Zohreh Mckeon [employer] MAINTENANCE TECHNICIAN-C Work Phone: Start: 01-30-2025 Assay of triglycerides Zohreh Mckeon [employer] MAINTENANCE TECHNICIAN-C Work Phone: Start: 01-30-2025 Total cholesterol:HDL ratio measurement Zohreh Mckeon [employer] MAINTENANCE TECHNICIAN-C Work Phone: Start: 01-29-2025 Plain x-ray of pelvis and lower extremity Zohreh Mckeon NP-C Work Phone: Start: 01-29-2025 Estimated creatinine clearance Zohreh Mckeon NP-C Work Phone: Start: 12-12-2024 X-ray of ankle, three or more views Zohreh Mckeon [employer] MAINTENANCE TECHNICIAN-C Work Phone: Start: 12-12-2024 X-ray of foot, three or more views Zohreh Mckeon [employer] MAINTENANCE TECHNICIAN-C Work Phone: Start: 09-29-2024 Blood count smear mcrscp w/mnl difrntl wbc count Zohreh Mckeon NP-C Work Phone: Start: 09-29-2024 Estimated creatinine clearance Zohreh Mckeon NP-C Work Phone: Start: 09-29-2024 Mean corpuscular hemoglobin concentration determination Zohreh Mckeon NP-C Work Phone: Start: 09-29-2024 Nucleated red blood cell count procedure Zohreh Mckeon [employer] MAINTENANCE TECHNICIAN-C Work Phone: Start: 09-29-2024 Platelet mean volume determination Zohreh Mckeon NP-C Work Phone: Start: 09-29-2024 Triacylglycerol lipase measurement Zohreh Mckeon [employer] MAINTENANCE TECHNICIAN-C Work Phone: Start: 09-29-2024 Urine microscopy: red cells Zohreh Mckeon NP-C Work Phone: Start: 09-29-2024 Urnls dip stick/tablet reagent auto microscopy Zohreh cMkeon [employer] MAINTENANCE TECHNICIAN-C Work Phone: Start: 09-21-2024 Urine microscopy: red cells Zohreh Mckeon [employer] MAINTENANCE TECHNICIAN-C Work Phone: Start: 09-21-2024 Urnls dip stick/tablet reagent auto microscopy Zohreh Mckeon [employer] MAINTENANCE TECHNICIAN-C Work Phone: Start: 09-21-2024 Estimated creatinine clearance Zohreh Mckeon [employer] MAINTENANCE TECHNICIAN-C Work Phone: Start: 09-21-2024 Triacylglycerol lipase measurement Zohreh Mckeon [employer] MAINTENANCE TECHNICIAN-C Work Phone: Start: 09-21-2024 Blood count smear mcrscp w/mnl difrntl wbc count Zohreh Mckeon [employer] MAINTENANCE TECHNICIAN-C Work Phone: Start: 09-21-2024 Mean corpuscular hemoglobin concentration determination Zohreh Mckeon [employer] MAINTENANCE TECHNICIAN-C Work Phone: Start: 09-21-2024 Nucleated red blood cell count procedure Zohreh Mckeon [employer] MAINTENANCE TECHNICIAN-C Work Phone: Start: 09-21-2024 Platelet mean volume determination Zohreh Mckeon [employer] MAINTENANCE TECHNICIAN-C Work Phone: Start: 09-16-2024 Blood count smear mcrscp w/mnl difrntl wbc count Zohreh Mckeon [employer] MAINTENANCE TECHNICIAN-C Work Phone: Start: 09-16-2024 Mean corpuscular hemoglobin concentration determination Zohreh Mckeon [employer] MAINTENANCE TECHNICIAN-C Work Phone: Start: 09-16-2024 Nucleated red blood cell count procedure Zohreh Mckeon [employer] MAINTENANCE TECHNICIAN-C Work Phone: Start: 09-16-2024 Platelet mean volume determination Zohreh Mckeon [employer] MAINTENANCE TECHNICIAN-C Work Phone: Start: 09-16-2024 Estimated creatinine clearance Zohreh Mckeon [employer] MAINTENANCE TECHNICIAN-C Work Phone: Start: 09-12-2024 Urine microscopy: red cells Zohreh Mckeon [employer] MAINTENANCE TECHNICIAN-C Work Phone: Start: 09-12-2024 Urnls dip stick/tablet reagent auto microscopy Zohreh Mckeon [employer] MAINTENANCE TECHNICIAN-C Work Phone: Start: 09-12-2024 Urine culture [facility] Work Phone: Start: 09-11-2024 Plain X-ray abdomen [facility] Work Phone: Start: 09-09-2024 Urine culture [facility] Work Phone: Start: 09-09-2024 Serum inorganic phosphate measurement Zohreh Mckeon [employer] MAINTENANCE TECHNICIAN-C Work Phone: Start: 09-08-2024 Blood culture [facility] Work Phone: Start: 09-08-2024 Clostridium difficile detection [facility] Work Phone: Start: 09-08-2024 Nucleic acid assay [facility] Work Phone: Start: 09-08-2024 Iadna-dna/rna gi pthgn multiplex probe tq 6-11 Zohreh Mckeon [employer] MAINTENANCE TECHNICIAN-C Work Phone: Start: 09-08-2024 Parathyroid hormone measurement Zohreh Mckeon [employer] MAINTENANCE TECHNICIAN-C Work Phone: Start: 09-08-2024 Vitamin D, 25-hydroxy measurement Zohreh Mckeon [employer] MAINTENANCE TECHNICIAN-C Work Phone: Start: 09-08-2024 Calcium measurement Zohreh Mckeon [employer] MAINTENANCE TECHNICIAN-C Work Phone: Start: 09-07-2024 Computed tomography of abdomen and pelvis with intravenous contrast [facility] Work Phone: Start: 09-07-2024 Triacylglycerol lipase measurement Zohreh Mckeon [employer] MAINTENANCE TECHNICIAN-C Work Phone: Start: 09-05-2024 Blood count smear mcrscp w/mnl difrntl wbc count Zohreh Mckeon [employer] MAINTENANCE TECHNICIAN-C Work Phone: Start: 09-05-2024 Estimated creatinine clearance Zohreh Mckeon [employer] MAINTENANCE TECHNICIAN-C Work Phone: Start: 09-05-2024 Mean corpuscular hemoglobin concentration determination Zohreh Mckeon [employer] MAINTENANCE TECHNICIAN-C Work Phone: Start: 09-05-2024 Nucleated red blood cell count procedure Zohreh Mckeon [employer] MAINTENANCE TECHNICIAN-C Work Phone: Start: 09-05-2024 Platelet mean volume determination Zohreh Mckeon NP-C Work Phone: Start: 09-05-2024 Triacylglycerol lipase measurement Zohreh WOODC Work Phone: Start: 09-02-2024 Blood count smear mcrscp w/mnl difrntl wbc count Zohreh Mckeon [employer] MAINTENANCE TECHNICIAN-C Work Phone: Start: 09-02-2024 Estimated creatinine clearance Zohreh Mckeon [employer] MAINTENANCE TECHNICIAN-C Work Phone: Start: 09-02-2024 Mean corpuscular hemoglobin concentration determination Zohreh WOOD Work Phone: Start: 09-02-2024 Nucleated red blood cell count procedure Zohreh Mckeon [employer] MAINTENANCE TECHNICIANRamilaC Work Phone: Start: 09-02-2024 Platelet mean volume determination Zohreh Mckeon [employer] MAINTENANCE TECHNICIAN-C Work Phone: Start: 09-02-2024 Serum inorganic phosphate measurement Zohreh Mckeon [employer] MAINTENANCE TECHNICIAN- Work Phone: Start: 08-29-2024 Iadna-dna/rna gi pthgn multiplex probe tq 6-11 Zohreh Mckeon [employer] MAINTENANCE TECHNICIAN- Work Phone: Start: 08-29-2024 Clostridium difficile detection [facility] Work Phone: Start: 08-29-2024 Nucleic acid assay [facility] Work Phone: Start: 08-27-2024 MRI of lumbar spine [facility] Work Phone: Start: 08-27-2024 Calculation of international normalized ratio Zohreh Mckeon [facility] Work Phone: Start: 08-26-2024 CT angiography of lower limb [facility] Work Phone: Start: 08-26-2024 Assay of lactate Zohreh Mckeon [facility] Work Phone: Start: 08-26-2024 Plain chest X-ray [facility] Work Phone: Start: 08-01-2024 Computed tomography of abdomen and pelvis with intravenous contrast [facility] Work Phone: Start: 08-01-2024 Urine culture [facility] Work Phone: Start: 07-02-2024 CT of abdomen and pelvis with oral contrast [facility] Work Phone: Start: 06-29-2024 Plain chest X-ray [facility] Work Phone: Start: 06-29-2024 Computed tomography of abdomen and pelvis with intravenous contrast [facility] Work Phone: Start: 06-29-2024 Urine culture [facility] Work Phone: Start: 04-25-2024 Computed tomography of abdomen and pelvis with intravenous contrast [facility] Work Phone: Start: 10-15-2023 Plain x-ray of pelvis and lower extremity Start: 09-02-2023 Antibody screen IBETH ALEJANDRO Comment on above: Order Comment: Specimen Type: BLOOD SPEC IMEN Ordering Facility: [facility] Address: [address] [place] [address] Performed By: #### [id number] #### [facility] [id number] [address] [place] [address] [place] Start: 09-02-2023 Plain chest X-ray [facility] Work Phone: Start: 09-02-2023 Plain x-ray of pelvis and lower extremity [facility] Work Phone: Start: 06-19-2023 Plain x-ray of pelvis and lower extremity [facility] Work Phone: Start: 06-19-2023 Radiologic examination of knee [facility] Work Phone: Start: 06-15-2023 Radiography of ankle [facility] Work Phone: Start: 06-12-2023 CT angiography of chest with contrast [facility] Work Phone: Start: 05-26-2023 Plain chest X-ray [facility] Work Phone: Start: 05-22-2023 X-ray of both feet [facility] Work Phone: Start: 05-03-2023 SARS-CoV-2 & FLU Antigen (Rapid) [facility] Work Phone: Start: 05-03-2023 Viral antigen assay [facility] Work Phone: Start: 05-03-2023 Plain chest X-ray [facility] Work Phone: Start: 02-02-2023 CT angiography of chest with contrast [facility] Work Phone: Start: 02-02-2023 Plain chest X-ray [facility] Work Phone: Start: 01-01-2023 SARS-CoV-2 & FLU Antigen (Rapid) [facility] Work Phone: Start: 01-01-2023 CT angiography of chest with contrast [facility] Work Phone: Start: 10-01-2022 Diagnostic radiography of abdomen Dr. Nathaly Lainze Work Phone: Start: 09-18-2022 Plain x-ray of [...] DTaP,Tdap,Td Vaccine (2 - Td or Tdap) [facility] Start: 02-11-2025 Patient discharge [facility] Start: 02-06-2025 [facility] Start: 01-31-2025 Admission procedure [facility] Start: 01-31-2025 Care planning and pr oblem solving actions [facility] Start: 01-30-2025 [facility] Start: 01-30-2025 Dual pressure sponta neous ventilation support [facility] Start: 01-29-2025 Application of intermittent pneumatic compression device [facility] Start: 01-29-2025 Following clinical pathway protocol [facility] Start: 01-29-2025 Assessment of risk o f venous thromboembolism [facility] Start: 01-29-2025 Care regimes management [facility] Start: 01-29-2025 Insertion of cathete r into peripheral vein [facility] Start: 01-29-2025 Measuring intake and output [facility] Start: 01-29-2025 Notification of physician [facility] Start: 01-29-2025 Providing care accor ding to standard [facility] Start: 01-29-2025 Provision of activit y privileges [facility] Start: 01-29-2025 Referral to occupati onal therapist [facility] Start: 01-29-2025 Referral to service [facility] Start: 01-29-2025 Tobacco use cessatio n education [facility] Start: 01-29-2025 End: 01-29-2025 [facility] Start: 01-29-2025 Urinalysis complete panel - Urine [facility] Start: 01-29-2025 Verification routine [facility] Start: 01-29-2025 Admission procedure [facility] Start: 01-29-2025 Hospital admission, emergency, from emergency room, medical nature [facility] Start: 01-29-2025 HIP, UNI W/ Pelvis 2 -3 Views HIP, UNI W/ Pelvis 2-3 Views [facility] Start: 01-29-2025 XR Pelvis and Hip Views [facility] Start: 01-29-2025 Thyroid stimulating hormone measurement [facility] Start: 01-29-2025 Patient referral to dietitian [facility] Start: 12-12-2024 [facility] Start: 09-29-2024 End: 09-29-2024 [facility] Start: 09-21-2024 [facility] Start: 09-16-2024 Patient discharge [facility] Start: 09-16-2024 [facility] Start: 09-14-2024 Consultation [facility] Start: 09-14-2024 Care planning and pr oblem solving actions [facility] Start: 09-11-2024 Consultation [facility] Start: 09-09-2024 Admission procedure [facility] Start: 09-08-2024 [facility] Start: 09-07-2024 Following clinical pathway protocol [facility] Start: 09-07-2024 Assessment of risk o f venous thromboembolism [facility] Start: 09-07-2024 Care regimes management [facility] Start: 09-07-2024 Fall prevention [facility] Start: 09-07-2024 Inhalation therapy procedure [facility] Start: 09-07-2024 Insertion of cathete r into peripheral vein [facility] Start: 09-07-2024 Measuring intake and output [facility] Start: 09-07-2024 Notification of physician [facility] Start: 09-07-2024 Providing care accor ding to standard [facility] Start: 09-07-2024 Provision of activit y privileges [facility] Start: 09-07-2024 Referral to occupati onal therapist [facility] Start: 09-07-2024 Referral to service [facility] Start: 09-07-2024 Tobacco use cessatio n education [facility] Start: 09-07-2024 End: 09-07-2024 [facility] Start: 09-07-2024 Verification routine [facility] Start: 09-07-2024 Admission procedure [facility] Start: 09-07-2024 Hospital admission, emergency, from emergency room, medical nature [facility] Start: 09-07-2024 Serum inorganic phos phate measurement [facility] Start: 09-07-2024 Patient referral to dietitian [facility] Start: 09-05-2024 [facility] Start: 09-02-2024 Referral to service [facility] Start: 09-02-2024 Patient discharge [facility] Start: 09-01-2024 [facility] Start: 08-27-2024 [facility] Start: 08-26-2024 Following clinical pathway protocol [facility] Start: 08-26-2024 Assessment of risk o f venous thromboembolism [facility] Start: 08-26-2024 Care regimes management [facility] Start: 08-26-2024 Incentive spirometry [facility] Start: 08-26-2024 Insertion of cathete r into peripheral vein [facility] Start: 08-26-2024 Measuring intake and output [facility] Start: 08-26-2024 Notification of physician [facility] Start: 08-26-2024 Providing care accor ding to [facility] Start: 08-26-2024 Referral to occupati onal therapist [facility] Start: 08-26-2024 Referral to service [facility] Start: 08-26-2024 Referral to vascular surgeon [facility] Start: 08-26-2024 Vital signs measurements [facility] Start: 08-26-2024 End: 08-26-2024 [facility] Start: 08-26-2024 Verification routine [facility] Start: 08-26-2024 Admission procedure [facility] Start: 08-26-2024 Hospital admission, emergency, from emergency room, medical nature [facility] Start: 08-26-2024 Patient referral to dietitian [facility] Start: 08-01-2024 [facility] Start: 07-03-2024 Patient discharge [facility] Start: 07-01-2024 Consultation [facility] Start: 06-30-2024 [facility] Start: 06-30-2024 [facility] Start: 06-30-2024 Referral to occupati onal therapist [facility] Start: 06-30-2024 Referral to service [facility] Start: 06-29-2024 Assessment of risk o f venous thromboembolism [facility] Start: 06-29-2024 Care regimes management [facility] Start: 06-29-2024 Insertion of cathete r into peripheral vein [facility] Start: 06-29-2024 Measuring intake and output [facility] Start: 06-29-2024 Notification of physician [facility] Start: 06-29-2024 Providing care accor ding to [facility] Start: 06-29-2024 Provision of activit y privileges [facility] Start: 06-29-2024 End: 06-29-2024 [facility] Start: 06-29-2024 End: 06-29-2024 Following clinical pathway protocol [facility] Start: 06-29-2024 Admission procedure [facility] Start: 04-29-2024 Patient discharge [facility] Start: 04-29-2024 Care planning and pr oblem solving actions [facility] Start: 04-29-2024 [facility] Start: 04-28-2024 Wound care [facility] Start: 04-26-2024 End: 04-27-2024 [facility] Start: 04-25-2024 Care planning and pr oblem solving actions [facility] Start: 04-25-2024 Assessment of risk o f venous thromboembolism [facility] Start: 04-25-2024 Care regimes management [facility] Start: 04-25-2024 Consultation for treatment [facility] Start: 04-25-2024 Inhalation therapy procedure [facility] Start: 04-25-2024 Insertion of cathete r into peripheral vein [facility] Start: 04-25-2024 Notification of physician [facility] Start: 04-25-2024 Patient referral to dietitian [facility] Start: 04-25-2024 Providing care accor ding to standard [facility] Start: 04-25-2024 Provision of activit y privileges [facility] Start: 04-25-2024 Referral to occupati onal therapist [facility] Start: 04-25-2024 Referral to service [facility] Start: 04-25-2024 End: 04-25-2024 [facility] Start: 04-25-2024 Care of central veno us catheter [facility] Start: 04-25-2024 Following clinical pathway protocol [facility] Start: 04-25-2024 Admission procedure [facility] Start: 04-25-2024 Patient referral to dietitian [facility] Start: 02-21-2024 End: 02-21-2024 Patient encounter procedure 02/21/2024 1:30 PM EDT Office Visit Endocrine Surgery [address] [place] [address] Gerda Rivero MD [address] [id number] [facility] Comment on above: [facility] Start: 02-03-2024 Covid-19 Vaccine ( season) Covid-19 Vaccine () [facility] Start: 02-03-2024 Influenza vaccination Influenza Vacc ine (#1) [facility] Start: 12-04-2023 Hemoglobin A1c measurement HbA1C [facility] Start: 10-23-2023 End: 10-23-2023 Patient encounter procedure 10/23/2023 1:15 PM EDT Office Visit [facility] [address] [place] [address] Gadiel Washington PA-C [address] [place] [address] PO [facility] Comment on above: PO Start: 09-02-2023 End: 09-02-2023 [facility] Start: 06-19-2023 [facility] Start: 06-16-2023 Patient discharge [facility] Start: 06-15-2023 Referral to boardinghouse keeper [facility] Start: 06-15-2023 Care regimes management [facility] Start: 06-13-2023 Blood chemistry [facility] Start: 06-13-2023 Following clinical pathway protocol [facility] Start: 06-13-2023 Assessment of risk o f venous thromboembolism [facility] Start: 06-13-2023 Fluid restriction [facility] Start: 06-13-2023 Insertion of cathete r into peripheral vein [facility] Start: 06-13-2023 Measuring intake and output [facility] Start: 06-13-2023 Oxygen therapy [facility] Start: 06-13-2023 Providing care accor ding to standard [facility] Start: 06-13-2023 Provision of activit y privileges [facility] Start: 06-13-2023 Referral to occupati onal therapist [facility] Start: 06-13-2023 Referral to service [facility] Start: 06-13-2023 End: 06-13-2023 [facility] Start: 06-13-2023 Verification routine [facility] Start: 06-13-2023 Admission procedure [facility] Start: 06-13-2023 Patient referral to dietitian [facility] Start: 06-12-2023 [facility] Start: 05-26-2023 [facility] Start: 05-11-2023 Blood chemistry [facility] Start: 05-10-2023 Blood chemistry [facility] Start: 05-09-2023 Blood chemistry [facility] Start: 05-08-2023 Blood chemistry [facility] Start: 05-07-2023 Patient discharge [facility] Start: 05-04-2023 Patient referral [facility] Work Phone: Start: 05-03-2023 [facility] Start: 05-03-2023 Referral to director of knowledge management [facility] Start: 05-03-2023 Ambulation without limitation [facility] Start: 05-03-2023 Assessment of risk o f venous thromboembolism [facility] Start: 05-03-2023 Care regimes management [facility] Start: 05-03-2023 Inhalation therapy procedure [facility] Start: 05-03-2023 Insertion of cathete r into peripheral vein [facility] Start: 05-03-2023 Measuring intake and output [facility] Start: 05-03-2023 Notification of physician [facility] Start: 05-03-2023 Oxygen therapy [facility] Start: 05-03-2023 Providing care accor ding to standard [facility] Start: 05-03-2023 Referral to occupati onal therapist [facility] Start: 05-03-2023 Referral to service [facility] Start: 05-03-2023 [facility] Start: 05-03-2023 Following clinical pathway protocol [facility] Start: 05-03-2023 Verification routine [facility] Start: 05-03-2023 Admission procedure [facility] Start: 05-03-2023 Hospital admission, emergency, from emergency room, medical nature [facility] Start: 05-03-2023 [facility] Start: 05-03-2023 [facility] Start: 05-03-2023 Consultation [facility] Start: 05-03-2023 Patient referral [facility] Start: 02-03-2023 Patient discharge [facility] Start: 02-02-2023 Following clinical pathway protocol [facility] Start: 02-02-2023 Ambulation without limitation [facility] Start: 02-02-2023 Assessment of risk o f venous thromboembolism [facility] Start: 02-02-2023 Care regimes management [facility] Start: 02-02-2023 Insertion of cathete r into peripheral vein [facility] Start: 02-02-2023 Measuring intake and output [facility] Start: 02-02-2023 Notification of physician [facility] Start: 02-02-2023 Providing care accor ding to [facility] Start: 02-02-2023 [facility] Start: 02-02-2023 Oxygen therapy [facility] Start: 02-02-2023 Verification routine [facility] Start: 02-02-2023 Admission procedure [facility] Start: 02-02-2023 [facility] Start: 02-02-2023 Covid-19 Vaccine ( season) Covid-19 Vaccine () [facility] Start: 02-02-2023 Brain natriuretic pe ptide measurement [facility] Start: 02-02-2023 Patient referral to [facility] Start: 01-03-2023 Patient discharge [facility] Start: 01-01-2023 Ambulation without limitation [facility] Start: 01-01-2023 Assessment of risk o f venous thromboembolism [facility] Start: 01-01-2023 Care regimes management [facility] Start: 01-01-2023 Catheterization of vein [facility] Start: 01-01-2023 Insertion of cathete r into peripheral vein [facility] Start: 01-01-2023 Measuring intake and output [facility] Start: 01-01-2023 Notification of physician [facility] Start: 01-01-2023 Providing care accor ding to standard [facility] Start: 01-01-2023 [facility] Start: 01-01-2023 Admission procedure [facility] Start: 01-01-2023 Following clinical pathway protocol [facility] Start: 01-01-2023 [facility] Start: 09-02-2022 Patient discharge [facility] Start: 09-01-2022 Referral to service [facility] Start: 09-01-2022 Wound care [facility] Start: 09-01-2022 [facility] Start: 08-31-2022 Amputation of toe Amputation T oe/Foot (Right) [facility] Start: 08-31-2022 Patient referral to dietitian [facility] Start: 08-31-2022 Blood chemistry [facility] Start: 08-30-2022 Care regimes management [facility] Start: 08-30-2022 Notification of physician [facility] Start: 08-30-2022 [facility] Start: 08-30-2022 Assessment of risk o f venous thromboembolism [facility] Start: 08-30-2022 Consultation [facility] Start: 08-30-2022 Consultation for treatment [facility] Start: 08-30-2022 Insertion of cathete r into peripheral vein [facility] Start: 08-30-2022 [facility] Start: 08-30-2022 Providing care accor ding to [facility] Start: 08-30-2022 Referral to service [facility] Start: 08-30-2022 Tobacco use cessatio n education [facility] Start: 08-30-2022 [facility] Start: 08-30-2022 Following clinical pathway protocol [facility] Start: 08-30-2022 Admission procedure [facility] Start: 08-30-2022 Verification routine [facility] Start: 08-30-2022 [facility] Start: 08-30-2022 End: 08-30-2022 Blood culture [facility] Start: 08-09-2022 Patient referral [facility] Work Phone: Start: 07-20-2022 End: 07-20-2022 Patient encounter procedure 07/20/2022 Office Visit Orthopedic Surgery Jerry Jones PA-C [address] [id number] [facility] Start: 07-20-2022 End: 07-20-2022 Documentation procedure 07/20/2022 Documentation Orthopedic Surgery [facility] Start: 05-19-2022 [facility] Start: 02-02-2022 Influenza vaccination Influenza Vacc ine (#1) [facility] Start: 08-23-2021 Shingrix Vaccine (1 of 2) Mcmillan grix Vaccine (1 of 2) [facility] Start: 08-23-2021 Zoster Vaccines (1 of 2) Zoste r Vaccines (1 of 2) [facility] Start: 02-23-2021 COVID-19 Vaccine (3 - Booster for Moderna series) COVID-19 Vaccine (3 - Booster for Moderna series) [facility] Start: 2020 Hepatitis B surface antibody level LDL Cholesterol [facility] Start: 03-14-2020 Annual PCP Team [employer] yamil Disease Visit Annual PCP Team Chronic Disease Visit [facility] Start: 06-19-2019 Screening for malign ant neoplasm of cervix [facility] Start: 06-18-2019 Screening for malign ant neoplasm of cervix Pap Testing [facility] Start: 01-31-2019 Screening for malign ant neoplasm of colon [facility] Start: 08-23-2016 Screening for malign ant neoplasm of colon [facility] Start: 10-14-2013 Screening for malign ant neoplasm of breast Mammogram Screening [facility] Start: 2011 Screening for malign ant neoplasm of breast Mammogram [facility] Start: 08-23-2001 Screening for malign ant neoplasm of cervix [facility] Start: 08-23-1992 Screening for malign ant neoplasm of cervix Pap Smear [facility] Start: 08-23-1990 DTaP/Tdap/Td Vaccine s (1 - Tdap) DTaP/Tdap/Td Vaccines (1 - Tdap) [facility] Start: 08-23-1990 Hepatitis B Vaccine (1 of 3 - 19+ 3-dose series) Hepatitis B Vaccine (1 of 3 - 19+ 3-dose series) [facility] Start: 08-23-1990 Urine screening for protein Diabetes: Urine Protein Screening [facility] Start: 08-23-1989 BP Controlled (<130/80) BP Controlle d (<130/80) [facility] Start: 08-23-1989 Hepatitis C screening Hepatitis C Sc reening [facility] Start: 08-23-1989 HIV [facility] Start: 08-23-1981 Diabetic foot examination [facility] Start: 08-23-1981 Glaucoma screening [facility] Start: 08-23-1981 Hepatitis B screening Urine Albumin:Creatinine Ratio [facility] Start: 08-23-1981 Preventive dental service Diabetes: Dental Exam [facility] Start: 08-23-1977 Pneumococcal vaccination Pneum ococcal Vaccine (1 of 2 - PCV) [facility] Start: 08-23-1977 Pneumococcal Vaccine : Pediatrics (0 to 5 Years) and At-Risk Patients (6 to 64 Years) (1 - PCV) Pneumococcal Vaccine: Pediatrics (0 to 5 Years) and At-Risk Patients (6 to 64 Years) (1 - PCV) [facility] Start: 08-23-1972 MMR Vaccines (1 of 1 - Standard series) MMR Vaccines (1 of 1 - Standard series) [facility] Start: 1971 Hemoglobin A1c measurement Diabetes: Hemoglobin A1C [facility] Start: 1971 Hepatitis B Vaccines (1 of 3 - 3-dose series) Hepatitis B Vaccines (1 of 3 - 3-dose series) [facility] Start: 1971 HIV screening HIV Screening [facility] Start: 1971 Lipid panel Lipid Panel [facility] Start: 1971 Screening for malign ant neoplasm of colon [facility] Anion gap measurement [facility] Anion gap measurement [facility] Ankle brachial press ure index [facility] Ankle brachial press ure index [facility] Bacteria identified in Blood by Culture Blood Culture [facility] Bacteria identified in Blood by Culture Blood Culture [facility] Bacteria identified in Urine by Culture Urine Culture [facility] Bilirubin measuremen t, urine [facility] BUN/Creatinine ratio [facility] BUN/Creatinine ratio [facility] Calcium [Mass/volume ] in 24 hour Urine [facility] Calcium [Mass/volume ] in Serum or Plasma [facility] Calcium [Mass/volume ] in Serum or Plasma [facility] Carbon dioxide, tota l [Moles/volume] in Serum or Plasma [facility] Carbon dioxide, tota l [Moles/volume] in Serum or Plasma [facility] Chloride [Moles/volu me] in Serum or Plasma [facility] Chloride [Moles/volu me] in Serum or Plasma [facility] Creatinine [Moles/vo lume] in Serum or Plasma [facility] Creatinine [Moles/vo lume] in Serum or Plasma [facility] Folate [Moles/volume ] in Serum or Plasma [facility] Glucose [Mass/volume ] in Serum or Plasma [facility] Glucose [Mass/volume ] in Serum or Plasma [facility] Hematocrit [Volume Fraction] of Blood [facility] [facility] Hematocrit [Volume Fraction] of Blood [facility] Hemoglobin [Mass/vol ume] in Blood [facility] Hemoglobin [Mass/vol ume] in Blood [facility] Hemoglobin [Presence ] in Urine [facility] Hemoglobin A1c/Hemoglobin.total in Blood [facility] Lactic acid measurement [facility] Leukocytes [#/volume ] in Blood [facility] Leukocytes [#/volume ] in Blood [facility] Magnesium [Mass/volu me] in Serum or Plasma [facility] Magnesium measurement [facility] Mean corpuscular hemoglobin concentration determination [facility] Mean corpuscular hemoglobin concentration determination [facility] Mean corpuscular hemoglobin determination [facility] Mean corpuscular hemoglobin determination [facility] Measurement of keton es in urine using dipstick [facility] Measurement of renal function [facility] Measurement of renal function [facility] Microscopic urinalysis [facility] Neutrophil count [facility] Neutrophil count [facility] Neutrophil percent differential count [facility] Neutrophil percent differential count [facility] Patient Education [facility] Work Phone: Patient referral [facility] Work Phone: pH of Urine [facility] Platelets [#/volume] in Blood [facility] Platelets [#/volume] in Blood [facility] Potassium [Moles/vol ume] in Serum or Plasma [facility] Potassium [Moles/vol ume] in Serum or Plasma [facility] Radionuclide gastric emptying study [facility] Red blood cell count [facility] Red blood cell count [facility] Red cell distributio n width determination [facility] Red cell distributio n width determination [facility] Sodium [Moles/volume ] in Serum or Plasma [facility] Sodium [Moles/volume ] in Serum or Plasma [facility] Specific gravity of Urine [facility] Urea nitrogen [Mass/volume] in Serum or Plasma [facility] Urea nitrogen [Mass/volume] in Serum or Plasma [facility] Urine blood test [facility] Urine dipstick for glucose [facility] Urine dipstick for leukocyte esterase [facility] Urine dipstick for nitrite [facility] Urine dipstick for protein [facility] Urine examination [facility] Urine microscopy: epithelial cells [facility] Urine Microscopy: wh ite cells [facility] Urobilinogen [Presen ce] in Urine [facility] US Lower extremity artery [facility] Immunizations Immunization Date Immunization Notes Care Provider [facility] 06-14-2023 influenza, injectabl e, quadrivalent, preservative free [facility] Work Phone: [facility] 06-14-2023 influenza virus vaccine, unspecified formulation Gerda Rivero MD Work Phone: [facility] 09-01-2022 influenza, injectabl e, quadrivalent, preservative free [facility] Work Phone: [facility] 09-01-2022 influenza, seasonal, injectable Dr. Nathaly Lainez Work Phone: [facility] 08-05-2021 influenza, injectabl e, quadrivalent, preservative free [facility] Work Phone: [facility] 08-05-2021 influenza, seasonal, injectable [facility] 08-05-2021 influenza virus vaccine, unspecified formulation Jerry Jones PA-C Work Phone: [facility] 12-29-2020 Covid (Moderna) Dr. Nathaly Lowery Work Phone: [facility] 11-30-2020 Covid (Erasmo) Dr. Nathaly Lowery Work Phone: [facility] 07-20-2018 influenza, injectabl e, quadrivalent, preservative free [facility] Work Phone: [facility] 07-20-2018 influenza, seasonal, injectable Dr. Nathaly Lainez Work Phone: [facility] Payers Date Payer Category Payer Self-pay [id number] 2022 Medicaid [id number] 2012 Medicaid [id number] 2012 Unknown [id number] 1970 Unknown [id number] .0.1.023264.3.579.2.903 1970 Unknown [id number] .0.1.352254.3.579.2.627 1970 Unknown [id number] .840.1.868427.3.579.2.627 Unknown [employer]\CAR[employer] Unknown [id number] .840.1.883789.3.579.2.462 Unknown [id number] .840.1.878429.3.579.2.462 Unknown [id number] 2.840.1.517154.3.579.2.462 Unknown [id number] 2.16840.1.732128.3.579.2.462 Unknown [id number] 2.840.1.180101.3.579.2.462 Unknown [id number] 2.16840.1.065379.3.579.2.462 Unknown [id number] 2.840.1.507035.3.579.2.462 Unknown [id number] 2.840.1.089073.3.579.2.462 Unknown [id number] 2.840.1.740174.3.579.2.462 Unknown [id number] 2.840.1.758302.3.579.2.462 Unknown [id number] 2.840.1.995873.3.579.2.462 Unknown [id number] 2.840.1.976536.3.579.2.462 Unknown [id number] 2.840.1.548758.3.579.2.462 Unknown [id number] 2.840.1.711417.3.579.2.462 Unknown [id number] 2.840.1.640136.3.579.2.462 Unknown [id number] .840.1.405161.3.579.2.462 Unknown 23701147 2.840.1.951345.3.579.2.462 Unknown [id number] .840.1.323990.3.579.2.462 Unknown [id number] .840.1.680165.3.579.2.462 Unknown [id number] .840.1.251062.3.579.2.462 Unknown [id number] .840.1.167969.3.579.2.462 Unknown [id number] 2.840.1.085397.3.579.2.462 Unknown [id number] 2.840.1.892406.3.579.2.462 Unknown [id number] 2.840.1.932644.3.579.2.462 Unknown [id number] 2.16.840.1.901938.3.579.2.462 Unknown [id number] 2.16.840.1.957405.3.579.2.462 Unknown [id number] 2.16.840.1.021765.3.579.2.462 Unknown 10188528 2.16.840.1.077405.3.579.2.462 Unknown [id number] 2.16.840.1.711535.3.579.2.462 Unknown [id number] 2.16.840.1.099346.3.579.2.462 Unknown [id number] 2.16.840.1.737763.3.579.2.462 Unknown [id number] 2.16.840.1.980586.3.579.2.462 Unknown [id number] 2.16.840.1.975725.3.579.2.462 Unknown 62801597 2.16.840.1.517608.3.579.2.462 Unknown 13634122 2.16.840.1.366486.3.579.2.462 Unknown [id number] 2.16.840.1.749743.3.579.2.462 Unknown 81094414 2.16.840.1.284068.3.579.2.462 Unknown 02408619 2.16.840.1.736829.3.579.2.462 Unknown 33496133 2.16.840.1.677937.3.579.2.462 Unknown [id number] 2.16.840.1.737691.3.579.2.462 Unknown 43757343 2.16.840.1.949116.3.579.2.462 Unknown 16667617 2.16.840.1.598390.3.579.2.462 Unknown 96936824 2.16.840.1.376282.3.579.2.462 Unknown 70787358 2.16.840.1.410310.3.579.2.462 Unknown 85058574 2.16.840.1.641217.3.579.2.462 Unknown [id number] 2.16.840.1.345526.3.579.2.462 Unknown [id number] 2.16.840.1.948011.3.579.2.462 Unknown 63066094 2.16.840.1.488130.3.579.2.462 Unknown 21658241 2.16.840.1.385637.3.579.2.462 Unknown 66723734 2.16840.1.555777.3.579.2.462 Unknown 06173192 2.16840.1.409308.3.579.2.462 Unknown 34863375 2.16840.1.037261.3.579.2.462 Unknown 80630073 2.16840.1.610916.3.579.2.462 Unknown [id number] 2.840.1.471721.3.579.2.462 Unknown [id number] 2.16840.1.915123.3.579.2.462 Unknown 35517595 2.16840.1.345248.3.579.2.462 Unknown 09881956 2.16840.1.306491.3.579.2.462 Unknown 79921525 2.16840.1.828807.3.579.2.462 Unknown 77568703 2.16840.1.473767.3.579.2.462 Unknown [id number] 2.16.840.1.529676.3.579.2.462 Unknown 19928286 2.16.840.1.751799.3.579.2.462 Unknown 73839621 2.16840.1.077796.3.579.2.462 Unknown 19999262 2.16.840.1.805374.3.579.2.462 Unknown 05713136 2.16.840.1.744672.3.579.2.462 Unknown 67508124 2.16.840.1.752135.3.579.2.462 Unknown 43774689 2.16.840.1.721109.3.579.2.462 Unknown 19790050 2.16.840.1.050655.3.579.2.462 Unknown [id number] 2.16.840.1.877986.3.579.2.462 Unknown 23184869 2.16.840.1.374718.3.579.2.462 Unknown [id number] 2.16.840.1.636711.3.579.2.462 Unknown 38948254 2.16.840.1.673778.3.579.2.462 Unknown 01557080 2.16.840.1.925485.3.579.2.462 Unknown 07127339 2.16.840.1.209638.3.579.2.462 Unknown 71318038 2.16.840.1.695472.3.579.2.462 Unknown 83427190 2.16.840.1.467593.3.579.2.462 Unknown 39041644 2.16.840.1.853603.3.579.2.462 Unknown 30794284 2.16.840.1.384982.3.579.2.462 Unknown 80156475 2.16.840.1.737779.3.579.2.462 Unknown 53562176 2.16.840.1.033140.3.579.2.462 Unknown 73425154 2.16.840.1.058291.3.579.2.462 Unknown 30562492 2.16.840.1.561039.3.579.2.462 Unknown 27937156 2.16.840.1.584540.3.579.2.462 Unknown 75473610 2.16.840.1.292386.3.579.2.462 Unknown 67990782 2.16.840.1.698637.3.579.2.462 Unknown 58766827 2.16.840.1.625133.3.579.2.462 Unknown 26280974 2.16.840.1.782288.3.579.2.462 Unknown 88120919 2.16.840.1.729507.3.579.2.462 Unknown 54079650 2.16.840.1.844183.3.579.2.462 Unknown 61873461 2.840.1.763592.3.579.2.462 Unknown 39755752 2.16.840.1.350669.3.579.2.462 Unknown 95948293 2..840.1.247466.3.579.2.462 Unknown 06749120 2.16.840.1.547247.3.579.2.462 Unknown 13525525 2.16.840.1.009717.3.579.2.462 Unknown 23905558 2.16.840.1.349341.3.579.2.462 Unknown 42597150 2.16.840.1.152393.3.579.2.462 Unknown 63791432 2.16.840.1.446270.3.579.2.462 Unknown 01019495 2.16.840.1.951038.3.579.2.462 Unknown [id number] 2.16.840.1.574107.3.579.2.462 Unknown [id number] 2.16.840.1.484158.3.579.2.462 Unknown [id number] 2..840.1.083786.3.579.2.462 Unknown [id number] 2.840.1.677472.3.579.2.462 Unknown [id number] 2..840.1.189552.3.579.2.462 Social History Date Type Detail Facility [facility] Start: 03-27-2022 End: 10-15-2023 Tobacco smoking consumption unknown [facility] Start: 08-13-2020 None [facility] Start: 08-13-2020 Spouse/ Signif icant Other [facility] Start: 08-11-2020 Cigarettes [facility] Start: 1970 Sex Assigned At Female W [facility] Start: 12-06-2018 End: 01-30-2025 Tobacco smoking status NHIS Smokes tobacco daily [facility] History of tobacco use Cigarette Smoker C [facility] Start: 12-06-2018 End: 09-03-2023 Cigarettes smoked current (pack per day) - Reported 0.5 [facility] Start: 12-06-2018 Tobacco use and exposure Smokeless tobacco non-user [facility] Start: 09-03-2023 End: 10-19-2023 Alcohol intake Current non-drinker of alcohol (finding) [facility] Start: 08-31-2020 End: 09-03-2023 [facility] Interventional Imagingities [facility] Has the [employer], or [employer] threatened to shut off services in your home in past 12Mo No [facility] Attends [employer] Not on file [facility] Are you now , , , , never or living with a partner? [facility] How often to you hav e a drink containing alcohol? Never [facility] Do you feel stress - tense, restless, nervous, or anxious, or unable to sleep at night because your mind is troubled all the time - these days [OSQ] Very much [facility] (I/We) worried wheth er (my/our) food would run out before (I/we) got money to buy more. Never true [facility] Start: 10-18-2018 Education 12 [facility] Start: 1970 Sex Assigned At Not on file [facility] Start: 05-29-2022 End: 06-08-2022 Exposure to SARS-CoV-2 (event) Not sure [facility] Start: 05-23-2024 Tobacco smoking status Never s moked tobacco (finding) [facility] Sexual Orientation [facility] ospital [facility] Start: 09-04-2022 End: 09-29-2024 Sex Female (finding) [facility] Start: 08-26-2024 End: 08-28-2024 Tobacco smoking status NHIS Current Heavy tobacco smoker [facility] NEGATED: Highlighted row [facility] Medical Equipment Procedure Code Equipment Code Equipment Origin al Text Equipment Identifier Dates [id number]) [id number] FDA Start: 08-10-2022 [id number] FDA Start: 08-10-2022 ([id number]) ()[id number] FDA Start: 08-10-2022 Nail Tfn-Advance d 125d Short Green Titanium 170mm Intramedullary Cannulated - [id number] Start: 09-03-2023 Screw Tfn-Advanc ed 85mm Bone Sterile - [id number] Start: 09-03-2023 Screw 5mm 4.3mm T25 Full Thread Titanium 34mm Bone Lock Self Tap Blunt Tip - [id number] Start: 09-03-2023 Comment on above: Description: Was on worksheet and verified on intra-op x-ray. [id number], [id number], [id number], [id number], [id number] Start: 10-08-2018 Comment on above: Check sugars [...] Assessment Result Facility 02-11-2025 Functional status Ambulates;Bedrest [facility] Work Phone: 09-16-2024 Functional status Ambulates;Bathroom Priv [facility] Work Phone: 09-02-2024 Functional status Ambulates [facility] Work Phone: 07-03-2024 Functional status Ambulates [facility] Work Phone: 05-24-2024 Functional Status Activity Status ADL Leslie [facility] 05-23-2024 Functional Status Standard Safet y ID band on, Allergy Band on, Call device within reach, Bed in low position, Wheels locked, personal items within reach, Safety level maintained [facility] 04-29-2024 Functional status Ambulates [facility] Work Phone: 06-16-2023 Functional status Ambulates;Bedside Commo [facility] Work Phone: 05-07-2023 Functional status Bedside Commode [facility] Work Phone: 02-03-2023 Functional status Activity Ability Indepe ndent [facility] Work Phone: 01-03-2023 Functional status Patient Activi ty Ambulates;Up ad maria m [facility] Work Phone: 01-03-2023 Functional status Standby Assist [facility] Work Phone: 01-02-2023 Functional status Tolerates Activity Well [facility] Work Phone: 09-02-2022 Functional status Ambulates;Bedside Commo [facility] Work Phone: Mental Status Date Assessment Result Facility 02-11-2025 Cognitive function Voice/Name [facility] Work Phone: 09-29-2024 Cognitive function Awake;Alert;A ppropriate;Follow s Commands [facility] Work Phone: 09-16-2024 Cognitive function Voice/Name [facility] Work Phone: 09-02-2024 Cognitive function Voice/Name [facility] Work Phone: 07-11-2024 Cognitive function Voice/Name [facility] Work Phone: 07-10-2024 Cognitive function Awake;Alert;A ppropriate;Follow s Commands [facility] Work Phone: 07-07-2024 Cognitive function Awake;Alert;A ppropriate;Follow s Commands [facility] Work Phone: 07-05-2024 Cognitive function Voice/Name [facility] Work Phone: 07-04-2024 Cognitive function Voice/Name [facility] Work Phone: 07-03-2024 Cognitive function Voice/Name [facility] Work Phone: 05-23-2024 Mental Status Orientation Oriented x 4 [facility] 04-29-2024 Cognitive function Voice/Name [facility] Work Phone: 06-16-2023 Cognitive function Voice/Name [facility] Work Phone: 06-12-2023 Cognitive function Level Of Cons ciousness Awake;Alert;Appropriate [facility] Work Phone: 05-07-2023 Cognitive function Voice/Name [facility] Work Phone: 02-03-2023 Cognitive function Voice/Name [facility] Work Phone: 02-02-2023 Cognitive function Level Of Cons ciousness Awake;Alert;Appropriate [facility] Work Phone: 01-03-2023 Cognitive function Appropriate;Cooperativ e [facility] Work Phone: 01-01-2023 Cognitive function Level Of Cons ciousness Awake;Alert;Appropriate;Follow s Commands [facility] Work Phone: 09-02-2022 Cognitive function Voice/Name [facility] Work Phone: 04-17-2022 Cognitive function Level Of Cons ciousness Awake;Alert;Appropriate [facility] Work Phone: 03-27-2022 Cognitive function Level Of Cons ciousness Awake;Alert;Appropriate [facility] Work Phone: Clinical Notes 06-08-2022 to 02-11-2025 Note Date & Type Note Facility 02-11-2025 Discharge summary Note Date/Time February 11, 2025 2:39pm [facility] Medical Records Department [address] [place] [address] 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 I CERTIFY THAT POST-[facility] ARE REQUIRED TO BE GIVEN ON AN IN-PATIENT BASIS BECAUSE OF THE ABOVE NAMED PATIENT'S NEED FOR LONG-TERM CARE ON A CONTINUING BASIS FOR THE CONDITION(S) FOR WHICH HE/SHE WAS RECEIVING IN-PATIENT HOSPITAL SERVICES PRIOR TO HIS/HER TRANSFER TO THE [facility]. 02/11/25 1439<Electronically signed by Riccardo Shaikh [...] Martina case has been escalated to case health information management director. Allergies/Procedures Done in Hospital Allergies latex Allergy [...] willing to have diet education while at [facility] Discharge Plan Admission Admit Date/Time: 01/31/25 13:49 Primary Reason for Your Visit: pelvic fractures Attending Provider: Riccardo Shaikh Primary Care Provider: Zohreh Mckeon [facility] Consulting Providers: Latricia Yao; Nicole Trujillo; [...] cbc while on iv abx. Fax to [phone]. acetaminophen 325 mg Tablet 650 mg PO [...] than 130 mg/dl (DME) OXYGEN - Supplemental ([facility] INFORMATIONAL USE ONLY) Gas See Rx Instructions .ROUTE Patient Comments: wears 2lpm @HS provided by [facility] Rx Instructions: As directed Referrals / Follow Up: Zohreh Mckeon, MULTI CRAFT MAINTENANCE TECHNICIAN-C [Primary Care Provider] - Within 2 Weeks Disposition Disposition (needs filled in before D/C Order can be placed): Detention Facility (2) Fracture of pubic ramus Qualifiers: Encounter type: initial encounter Fracture type: closed Laterality: right Qualified Code(s): S32.591A - Other specified fracture of right pubis, initial encounter for closed fracture 02/11/25 4289 <Electronically signed by Riccardo Shaikh DO> Cosigner Signature (if applicable): CC: RUTH MULTI CRAFT MAINTENANCE TECHNICIAN-C Zohreh Mckeon; Dr. Lei Justin DO; Dr. Latricia Yao DO; Dr. Nicole Trujillo DO; Dr. Talisha Boykin MD ~ [facility] Work Phone: 1(168) 653-153309-10-2025 Progress note Author Riccardo Shaikh [facility] Note Date/Time February 11, 2025 2:26pm [facility] Medical Records Department [address] [place] [address] Progress Note - Hospitalist 02/11/25 1214 MR#: [id number] Acct: [id number] Name: TRENTON JACKSON Rep #:[id number] : 1970 54 From: Riccardo Shaikh DO PCP: RUTH Lawrence, MULTI CRAFT MAINTENANCE TECHNICIAN-C Statu s:ADM IN Location: MS3 HG774-4 Reason for Visit Chief Complaint: Severe Right [...] Martina case has been escalated to case health information management director. Charges/Coding Visit Charges Inpatient E&M: 82038 Subs Hosp L1 02/11/25 1216 <Electronically signed by Riccardo Shaikh DO> Cosigner Signature (if applicable): CC: ~ Signed ADDENDUM by Dr. Riccardo Shaikh DO on 02/11/25 at 1426 Addendum DW CM/SW. Apparently, there was a clerical error preventing the precert from proceeding. It has since been expedited. 02/11/25 1426<Electronically signed by Riccardo Shaikh DO> Cosigner Signature (if applicable): cc: ~* Signed [facility] Work Phone: 1(145) 976-338009-09-2025 Progress note Author Riccardo Shaikh [facility] Note Date/Time February 10, 2025 10:02am [facility] Medical Records Department [address] [place] [address] Progress Note - Hospitalist 02/10/2559 MR#: [id number] Acct: [id number] Name: TRENTON JACKSON Rep #:[id number] : 1970 54 From: Riccardo Shaikh DO PCP: RUTH Lawrence, MULTI CRAFT MAINTENANCE TECHNICIAN-C Statu s:ADM IN Location: [facility]3 [id number] Reason for Visit Chief Complaint: Severe Right [...] % (Auto) 64.4, Lymph % (Auto) 26.3, Carroll% (Auto) 7.2, Eos % (Auto) 1.1, Baso [...] pending precert. Charges/Coding Visit Charges Inpatient E&M: 82576 Subs Hosp L1 02/10/25 1002 <Electronically signed by Riccardo Shaikh DO> Cosigner Signature (if applicable): CC: ~ Signed [facility] Work Phone: 1(128) 994-462609-08-2025 Progress note Author Riccardo Shaikh [facility] Note Date/Time February 09, 2025 5:58pm [facility] Medical Records Department [address] [facility] [place] [address] Progress Note - Hospitalist 02/09/2504 MR#: [id number] Acct: [id number] Name: TRENTON JACKSON Rep #:[id number] : 1970 54 From: Riccardo Shaikh DO PCP: RUTH Lawrence, MULTI CRAFT MAINTENANCE TECHNICIAN-C Statu s:ADM IN Location: [place] NR523-4 Reason for Visit Chief Complaint: Severe Right [...] % (Auto) 58.7, Lymph % (Auto) 30.8, Carroll % (Auto) 7.7, Eos % (Auto) 1.3, [...] while she was here. I reviewed through [employer] her A1c being 13.2. She initially said [...] yelling atme. Charges/Coding Visit Charges Inpatient E&M: 53555 Subs Hosp L2 02/09/25 1302 <Electronically signed [...] Cosigner Signature (if applicable): cc: ~* Signed [facility] Work Phone: 1(993) 309-430609-07-2025 Progress note Author Talisha [facility] Note Date/Time February 08, 2025 1:26pm [facility] Medical Records Department [address] [place] [address] Progress Note 02/08/25 1322 MR#: [id number] Acct: [id number] Name: TRENTON JACKSON Rep #:[id number] : 1970 54 From: Talisha Boykin MD PCP: Zohreh Mckeon Gideon, MULTI CRAFT MAINTENANCE TECHNICIAN-C Statu s:ADM IN Location: [facility] [id number] Subjective Subjective Patient seen and examined with [...] % (Auto) 59.9, Lymph % (Auto) 28.0, Carroll % (Auto) 9.3, Eos % (Auto) 1.2, [...] pending precert. Charges/Coding Visit Charges Inpatient E&M: 97278 Subs Hosp L2 02/08/25 1326 <Electronically signed by Talisha Boykin MD> Talisha Boykin MD Cosigner Signature (if applicable): CC: ~ Signed [facility] Work Phone: 1(146) 716-477109-06-2025 Progress note Author Talisha [facility] Note Date/Time February 07, 2025 3:57pm [facility] Medical Records Department [address] [place] [address] Progress Note 02/07/25 1428 MR#: [id number] Acct: [id number] Name: TRENTON JACKSON Rep #:[id number] : 1970 54 From: Talisha Boykin MD PCP: RUTH Lawrence, MULTI CRAFT MAINTENANCE TECHNICIAN-C Statu s:ADM IN Location: [place] [address] Subjective Subjective Patient seen and examined. She [...] % (Auto) 53.2, Lymph % (Auto) 35.5, Carroll % (Auto) 8.5, Eos % (Auto) 1.3, [...] pending precert. Charges/Coding Visit Charges Inpatient E&M: 97801 Subs Hosp L2 02/07/25 0435 <Electronically signed by Talisha Boykin MD> Talisah Boykin MD Cosigner Signature (if applicable): CC: ~ Signed [facility] Work Phone: 1(222) 756-390909-05-2025 Progress note Author Talisha [facility] Note Date/Time February 06, 2025 4:00pm [facility] Medical Records Department [address] [place] [address] Progress Note 02/06/25 1043 MR#: [id number] Acct: [id number] Name: TRENTON JACKSON Rep #:[id number] : 1970 54 From: Talisha Boykin MD PCP: Zohreh Mckeon, RUTH, MULTI CRAFT MAINTENANCE TECHNICIAN-C Statu s:ADM IN Location: MS3 [id number] Subjective Subjective Patient seen and examined with [...] % (Auto) 60.3, Lymph % (Auto) 28.8, Carroll % (Auto) 7.8, Eos % (Auto) 1.6, [...] pending precert. Charges/Coding Visit Charges Inpatient E&M: 91416 Subs Hosp L2 02/06/25 1600 <Electronically signed by Talisha Boykin MD> Talisha Boykin MD Cosigner Signature (if applicable): CC: ~ Signed [facility] Work Phone: 1(291) 511-825509-04-2025 Progress note Author Talisha [facility] Note Date/Time February 05, 2025 1:35pm [facility] Medical Records Department [address] [place] [address] Progress Note 02/05/25 1332 MR#: [id number] Acct: [id number] Name: TRENTON JACKSON Rep #:[id number] : 1970 54 From: Talisha Boykin MD PCP: Zohreh Mckeon, Gideon, MULTI CRAFT MAINTENANCE TECHNICIAN-C Statu s:ADM IN Location: [facility] HR024-0 Subjective Subjective Patient seen and examined with [...] % (Auto) 56.0, Lymph % (Auto) 33.6, Carroll % (Auto) 7.8, Eos % (Auto) 1.4, [...] pending precert. Charges/Coding Visit Charges Inpatient E&M: 65426 Subs Hosp L2 02/05/25 1335 <Electronically signed by Talisha Boykin MD> Talisha Boykin MD Cosigner Signature (if applicable): CC: ~ Signed [facility] Work Phone: 1(599) 999-366309-03-2025 Progress [address] Talisha [facility] Note Date/Time February 04, 2025 6:31pm [facility] Medical Records Department [address] [place] [address] Progress Note 02/04/25 1124 MR#: [id number] Acct: [id number] Name: TRENTON JACKSON Rep #:[id number] : 1970 54 From: Talisha Boykin MD PCP: Zohreh Mckeon, VSC, MULTI CRAFT MAINTENANCE TECHNICIAN-C Statu s:ADM IN Location: [facility] NI064-2 Subjective Subjective Patient seen and examined with [...] % (Auto) 62.7, Lymph % (Auto) 26.4, Carroll % (Auto) 8.5, Eos % (Auto) 1.4, [...] pending precert. Charges/Coding Visit Charges Inpatient E&M: 22906 Subs Hosp L2 02/04/25 1831 <Electronically signed by Talisha Boykin MD> Talisha Boykin MD Cosigner Signature (if applicable): CC: ~ Signed [facility] Work Phone: 1(419) 293-459609-02-2025 Progress note Author Talisha [facility] Note Date/Time February 03, 2025 3:33pm [facility] Medical Records Department [address] [place] [address] Progress Note 09/02/25 1019 MR#: [id number] Acct: [id number] Name: TRENTON JACKSON Rep #:[id number] : 1970 54 From: Talisha Boykin MD PCP: Zohreh Mckeon Gideon, MULTI CRAFT MAINTENANCE TECHNICIAN-C Statu s:ADM IN Location: [facility] RQ699-4 Subjective Subjective Patient seen and examined with [...] Neut % (Auto) 60.5, Lymph % (Auto) 29.2,Carroll % (Auto) 7.8, Eos % (Auto) 1.4, [...] pending precert. Charges/Coding Visit Charges Inpatient E&M: 35976 Subs Hosp L2 02/03/25 1533 <Electronically signed by Talisha Boykin MD> Talisha Boykin MD Cosigner Signature (if applicable): CC: ~ Signed [facility] Work Phone: 1(294) 789-612309-01-[address]isha [facility] Note Date/Time February 02, 2025 4:48pm [facility] Medical Records Department [address] [place] [address] Progress Note 02/02/25 1211 MR#: [id number] Acct: [id number] Name: TRENTON JACKSON Rep #:[id number] : 1970 54 From: Talisha Boykin MD PCP: RUTH Lawrence, MULTI CRAFT MAINTENANCE TECHNICIAN-C Statu s:ADM IN [place] [facility] [id number] Subjective Subjective Patient seen and examined. She [...] pending precert. Charges/Coding Visit Charges Inpatient E&M: 41065 Subs Hosp L2 02/02/25 1648 <Electronically signed by Talisha Boykin MD> Talisha Boykin MD Cosigner Signature (if applicable): CC: ~ Signed [facility] Work Phone: 1(633) 266-486508-31-2025 Progress note Author Lei Justin [facility] Note Date/Time February 01, 2025 10 :03am [facility] Medical Records Department [address] [place] [address] Progress Note - Hospitalist 02/01/25 0911 MR#: [id number] Acct: [id number] Name: TRENTON JACKSON Rep #:[id number] : 1970 54 From: Lei swanson DO PCP: RUTH Lawrence, MULTI CRAFT MAINTENANCE TECHNICIAN-C Statu s:ADM IN [place] [facility] [place]020-2 Reason for Visit Chief Complaint: Severe Right [...] is a 54-year-old female who presented to [facility] ED on 01/29/2025 with right hip/groin [...] 35 minutes. Charges/Coding Visit Charges Inpatient E&M: 76727 Subs Hosp L2 02/01/25 1003 <Electronically signed by Lei Justin DO> Cosigner Signature (if applicable): CC: ~ Signed [facility] Work Phone: 1(199) 361-821008-30-2025 Evaluation note* Diagnosis Onset Date Resolution Status [...] 2025 1:49pm Tobacco abuse acute January 1:49pm [facility] Work Phone: 1(254) 734-455108-30-2025 Progress note Author Lie [facility] Note Date/Time January 31, 2025 10 :36am [facility] Medical Records Department [address] [facility] [place] [address] Progress Note - Hospitalist 01/31/2519 MR#: [id number] Acct: [id number] Name: TRENTON JACKSON Rep #:[id number] : 1970 54 From: Lei swanson DO PCP: RUTH Lawrence, MULTI CRAFT MAINTENANCE TECHNICIAN-C Statu s:ADM REHAN Location: [place] [address] Reason for Visit Chief Complaint: Severe Right [...] Std Deviation 44.3 H, RDW Coeff of Spnecer 14.5, Plt Count 228, MPV 9.5,Immature Gran % (Auto) 0.400, Neut % (Auto) 60.2, Lymph % (Auto) 30.6, Carroll % (Auto) 7.0, Eos % (Auto) 1.2, [...] Clarity Clear, Urine pH 6.5, Ur Specific [place] 1.010, Urine Protein 30 H, Urine Glucose [...] is a 54-year-old female who presented to [facility] ED on 01/29/2025 with right hip/groin [...] 35 minutes. Charges/Coding Visit Charges Inpatient E&M: 96700 Subs Hosp L2 01/31/25 1036 <Electronically signed by Lei Justin DO> Cosigner Signature (if applicable): CC: ~ Signed [facility] Work Phone: 1(884) 270-881008-29-2025 Progress note Author Nicole Trujillo [facility] Note Date/Time January 30, 2025 4: 56pm [facility] Medical Records Department [address] [place] [address] Progress Note - Hospitalist 01/30/25 0728 MR#: [id number] Acct: [id number] Name: TRENTON JACKSON Rep #:[id number] : 1970 54 From: Nicole Trujillo DO PCP: RUTH Lawrence, MULTI CRAFT MAINTENANCE TECHNICIAN-C Statu s:ADM REHAN Location: [facility] PP449-6 Reason for Visit Chief Complaint: Severe Right [...] 74.5 H, Lymph % (Auto) 18.4 L, Carroll % (Auto) 5.4, Eos % (Auto) 0.4, [...] % (Auto) 59.7, Lymph % (Auto) 31.3, Carroll % (Auto) 6.7, Eos % (Auto) 1.3, [...] inferior and superior pubic processes. Reading Location: [facility] Physical Exam Const alert, oriented x3, no [...] type 2 diabetes mellitus: QUALIFIERS: Diabetes mellitus watermaster insulin use: with watermaster use Qualified Code(s): E11.65 - Type 2 diabetes mellitus with hyperglycemia; Z79.4 - terminologist (current) use of insulin PLAN: Plan Inability [...] -Full code Charges/Coding Visit Charges Inpatient E&M: 19308 Subs Hosp L2 01/30/25 1656 <Electronically signed by Nicole Trujillo DO> Cosigner Signature (if applicable): CC: ~ Signed [facility] Work Phone: [phone]) 753-945508-29-2025 History and physical note Author Latricia Burdick [facility] Note Date/Time January 30, 2025 6: 48am [facility] Medical Records Department [address] [place] [address] H&P Exam - Hospitalist 01/29/251928 MR#: [id number] Acct: [id number] Name: TRENTON JACKSON Rep #:[id number] : 1970 54 From: Latricia Hood DO PCP: RUTH Lawrence, MULTI CRAFT MAINTENANCE TECHNICIAN-C Statu s:ADM REHAN Location: [facility] YQ579-7 [facility] - General General Date of Admission: 01/29/25 [...] days of IV ertapenem who presents to [facility] ER complaining of severeRight hip pain [...] expected to be less than 2 midnights. COUNTS INCLUDE 234 BEDS AT [facility] Medical History L5 vertebral fracture ESBL [...] (congestive heart failure) CAD (coronary artery disease), [place] coronary artery Home Medications ?Medication ?Instructions ?Recorded [...] IN 1 - 2 pump subdermal Q6H DC N FOR 02/14/24 09/06/24 History saltsable FEET [...] 74.5 H, Lymph % (Auto) 18.4 L, Carroll % (Auto) 5.4, Eos % (Auto) 0.4, [...] inferior and superior pubic processes. Reading Location: [id number] Assessment & Plan Assessment/Plan (1) Fracture of pubic ramus: QUALIFIERS: Encounter type: initial encounter Fracture type: closed Laterality: right Qualified Code(s): S32.591A - Other specified fractureof right pubis, initial encounter for closed fracture (2) Severe pain: (3) Ambulatory dysfunction: (4) Hyperglycemia due to type 2 diabetes mellitus: QUALIFIERS: Diabetes mellitus watermaster insulin use: with watermaster use Qualified Code(s): E11.65 - Type 2 [...] 70 minutes. Charges/Coding Visit Charges OBSV E&M: 28550 Observ/hosp same date L2 01/30/25 0648 <Electronically signed by Latricia Yao DO> Cosigner Signature (if applicable): CC: RUTH MULTI CRAFT MAINTENANCE TECHNICIANBrian Mckeon; Dr. Latricia Yao DO~ Signed [facility] Work Phone: [phone] Discharge summary Author Martina Martínez [facility] Note Date/Time January 29, 2025 9: 23pm [facility] Medical Records Department [address] [place] [address] Emergency Department Summary 01/29/25 MR#: [id number] Acct: [id number] Name: TRENTON JACKSON Rep #:[id number] : 1970 54 From: Martina Gibson PCP: RUTH Lawrence, MULTI CRAFT MAINTENANCE TECHNICIAN-C Statu s:ADM REHAN Location: [facility] TM775-5 HPI History of Present Illness Chief Complaint: [...] other complaints or concerns at this time. [facility] Medical History L5 vertebral fracture ESBL (extended [...] (congestive heart failure) CAD (coronary artery disease), [place] coronary artery Home Medications ?Medication ?Instructions ?Recorded [...] IN 1 - 2 pump subdermal Q6H DC N FOR 02/14/24 09/06/24 History saltsable FEET [...] 74.5 H Lymph % (Auto) 18.4 L [place] % (Auto) 5.4 Eos % (Auto) 0.4 [...] inferior and superior pubic processes. Reading Location: [facility] Management Discussion w/another healthcare provider: Hospitalist Discharge Plan Triage Chief Complaint: Lower Extremity Injury ED Provider: Martina Martínez Dx/Rx/DC Orders Clinical Impression: Fracture of pubic ramus, Severe pain, Ambulatory dysfunction, Hyperglycemia Primary Care Provider: Zohreh Mckeon Disposition Disposition: Acute Care Hospital [facility] What to do if you have Problems For any increased pain, shortness of breath, bleeding, nausea or vomiting, chestpain, or any unexpected problems, contact your Primary Care Provider. Call [facility] ([phone]) or report to the closest Emergency Room. Call 911 if necessary. 01/29/252122 <Electronically signed by Martina Martínez DO> Cosigner Signature (if applicable): CC: FERNANDOC MULTI CRAFT MAINTENANCE TECHNICIAN-C Zohreh Mckeon ~ Signed [facility] Work Phone: [phone]) [phone] Discharge summary [facility] Medical Records Department [address] [place] [address] Emergency Department Summary 01/29/25 MR#: [id number] Acct: [id number] Name: TRENTON JACKSON Rep #:[id number] : 1970 54 From: Martina Gibson PCP: Zohreh Mckeon Gideon, MULTI CRAFT MAINTENANCE TECHNICIAN-C Statu s:ADM REHAN Location: [facility] YC640-0 HPI History of Present Illness Chief Complaint: [...] other complaints or concerns at this time. [facility] Medical History L5 vertebral fracture ESBL (extended [...] (congestive heart failure) CAD (coronary artery disease), [place] coronary artery Home Medications ?Medication ?Instructions ?Recorded [...] IN 1 - 2 pump subdermal Q6H DC N FOR 02/14/24 09/06/24 History saltsable FEET [...] 74.5 H Lymph % (Auto) 18.4 L [place] % (Auto) 5.4 Eos % (Auto) 0.4 [...] inferior and superior pubic processes. Reading Location: [facility] Management Discussion w/another healthcare provider: Hospitalist Discharge Plan Triage Chief Complaint: Lower Extremity Injury ED Provider: Martina Martínez Dx/Rx/DC Orders Clinical Impression: Fracture of pubic ramus, Severe pain, Ambulatory dysfunction, Hyperglycemia Primary Care Provider: Zohreh Mckeon Disposition Disposition: Acute Care Hospital [facility] What to do if you have Problems For any increased pain, shortness of breath, bleeding, nausea or vomiting, chestpain, or any unexpected problems, contact your Primary Care Provider. Call [facility] ([phone]) or report tothe closest Emergency Room. Call 911 if necessary. 01/29/252122 Cosigner Signature (if applicable): CC: RUTH MULTI CRAFT MAINTENANCE TECHNICIAN-C Zohreh Mckeon ~ Signed [facility]08-28-2025 Radiology Diagnostic study note [facility] Imaging Services [address] [place] [address] HIP, UNI W/ Pelvis 2-3 Views MR#: [id number] Acct: [id number] Name: TRENTON JACKSON Rep #: [id number] : 1970 F 54 From: Houston De Los Santos MD PCP: RUTH Lawrence, MULTI CRAFT MAINTENANCE TECHNICIAN-C Status: REG ER Study:HIP, UNI W/ Pelvis 2-3 Views Date of Ex am: 01/29/25 Exam# [id number] Ordering Dr: Gideon Martínez DO PROCEDURE: HIP, [...] inferior and superior pubic processes. Reading Location: [id number] CC: RUTH MULTI CRAFT MAINTENANCE TECHNICIANBrian Mckeon; Dr. Martina Martínez, DO ~ Washing Machine Installer: Signed [facility]07-11-2025 Radiology Diagnostic study [facility]07-11-2025 Radiology Diagnostic study [facility]04-20-2025 Hospital Discharge instructions Additional Instructions Follow-up with GI. Stay well-hydrated. Return for any other concerns. Can also follow-up with your PCP in the next 5 to 7 days.[facility] Work Phone: 1(397) 410-679004-15-2025 Consult note Author Josse Garcia [facility] Note Date/Time September 16, 2024 2:1 6pm [facility] Medical Records Department [address] [place] [address] Counseling Note - Pharmacy 09/16/24 1415 MR#: [id number] Acct: [id number] Name: TRENTON JACKSON Rep #:[id number] : 1970 54 From: Josse Garcia PCP: RUTH Lawrence, MULTI CRAFT MAINTENANCE TECHNICIANBrian Statu s:ADM IN Y Location: [facility] 1 Pharmacy [facility] Pharmacy Service has performed discharge [...] was counselled on new medications by pharmacy stock clerk Balta. Medications at Discharge Home Medications aspirin [...] Signature (if applicable): Date CC: ~ Signed [facility] Work Phone: 1(972) 783-454104-15-2025 Discharge summary Author Latricia Aaron [facility] Note Date/Time September 16, 2024 12: 41pm [facility] Medical Records Department [address] [place] [address] Discharge Summary 09/16/24 1201 MR#: [id number] Acct: [id number] Name: TRENTON JACKSON Rep #:[id number] : 1970 54 From: Latricia Aaron MD PCP: RUTH Lawrence, GLENN Statu s:ADM IN Location: [place] [address] Providers Date of Admission: 09/09/24 Date of Discharge: 09/16/24 Primary Care Physician: RUTH Lawrence, MULTI CRAFT MAINTENANCE TECHNICIANRamilaC Consultations 09/11/24 12:37 Consult: Infectious Disease Routine [...] % (Auto) Cancelled, Lymph % (Auto) Cancelled, Carroll % (Auto) Cancelled, Eos % (Auto) Cancelled, [...] Drop Cells Cancelled, Ovalocytes Cancelled, Stomatocytes Cancelled, [place] Bodies Cancelled, Lore Cells Cancelled, Bite Cells [...] (Auto) 79.4 H, Lymph % (Auto) 13.0L, Carroll % (Auto) 6.2, Eos % (Auto) 0.5, [...] Latricia Aaron Primary Care Provider: Zohreh Mckeon [facility] Consulting Providers: Rosaura Crane; Nichelle Mcneil; Brenda Posadas; Amish Tariq Discharge Orders/Prescriptions Prescriptions: New ertapenem 1 gram recon soln 1 g IV Q24H 7 Days Qty: 7 0RF Rx Instructions: Dx: emphysematous cystitis. Weekly bmp, LFT, and cbc while on iv abx. Fax to [phone]. acetaminophen 325 mg Tablet 650 mg PO [...] 0RF Referrals / Follow Up: Zohreh Mckeon, MULTI CRAFT MAINTENANCE TECHNICIAN-C [Primary Care Provider] - Within 1 Week Disposition Disposition (needs filled in before D/C Order can be placed): Home, Self Care Charges/Coding Visit Charges Inpatient E&M: 49294 Disch Hosp >30min 09/16/24 1241 <Electronically signed by Latricia Aaron MD> Cosigner Signature (if applicable): CC: RUTH MULTI CRAFT MAINTENANCE TECHNICIAN-C Zohreh Mckeon; Dr. Latricia Aaron MD~ Signed [facility] Work Phone: 1([phone]) 991-814804-15-2025 Progress note Author Latricia Aaron [facility] Note Date/Time September 16, 2024 12: 01pm [facility] Medical Records Department [address] [facility] [address] Progress Note - Hospitalist 09/16/24812 MR#: [id number] Acct: [id number] Name: TRENTON JACKSON Rep #:[id number] : 1970 54 From: Latricia Aaron MD PCP: RUTH Lawrence, MULTI CRAFT MAINTENANCE TECHNICIAN-C Statu s:ADM IN Location: [place] [address] Reason for Visit Reason for Visit: Diagnoses [...] Cosigner Signature (if applicable): CC: ~ Signed [facility] Work Phone: 1(524) 919-591104-15-2025 Progress note Author Nichelle Mcneil [facility] Note Date/Time September 16, 2024 10: 18am [facility] Medical Records Department [address] [place] [address] Progress Note - Infect Disease 09/16/24 1017 MR#: [id number] Acct: [id number] Name: TRENTON JACKSON Rep #:[id number] : 1970 54 From: Nichelle osborne MD PCP: Zohreh Mckeon, RUTH, MULTI CRAFT MAINTENANCE TECHNICIAN-C Statu s:ADM IN Location: [place] [address] Physical Exam Narrative Not feeling well, ongoing [...] Cosigner Signature (if applicable): CC: ~ Signed [facility] Work Phone: 1(106) 896-976304-15-2025 [facility]04-14-2025 Progress note Author Nichelle [facility] Note Date/Time September 15, 2024 2:2 7pm [facility] Medical Records Department [address] [place] [address] Progress Note - Infect Disease 09/15/24 1426 MR#: [id number] Acct: [id number] Name: TRENTON JACKSON Rep #:[id number] : 1970 54 From: Nichelle osborne MD PCP: RUTH Lawrence, MULTI CRAFT MAINTENANCE TECHNICIAN-C Statu s:ADM IN Location: [place] [address] Physical Exam Narrative Ongoing bladder pain, concerned [...] Cosigner Signature (if applicable): CC: ~ Signed [facility] Work Phone: 1(611) 205-633904-14-2025 Progress note Author Latricia Aaron [facility] Note Date/Time September 15, 2024 11: 29am [facility] Medical Records Department [address] [place] [address] Progress Note - Hospitalist 09/15/24721 MR#: [id number] Acct: [id number] Name: TRENTON JACKSON Rep #:[id number] : 1970 54 From: Latricia Aaron MD PCP: RUTH Lawrence, MULTI CRAFT MAINTENANCE TECHNICIAN-C Statu s:ADM IN Location: [place] [address] Reason for Visit Reason for Visit: Diagnoses [...] (Auto) 74.8 H, Lymph % (Auto) 14.8 L,Carroll % (Auto) 8.1, Eos % (Auto) 1.2, [...] documentation, 38minutes Charges/Coding Visit Charges Inpatient E&M: 22994 Subs Hosp L2 09/15/24 1129 <Electronically signed by Latricia Aaron MD> Cosigner Signature (if applicable): CC: ~ Signed [facility] Work Phone: 1([phone]) 704-510904-14-2025 Consult note Author Amish Tariq [facility] Note Date/Time September 15, 2024 11: 13am [facility] Medical Records Department [address] [place] [address] Consultation - Urology 09/15/24 1112 MR#: [id number] Acct: [id number] Name: TRENTON JACKSON Rep #:[id number] : 1970 54 From: Amish Tariq MD PCP: Zohreh Mckeon, [facility], MULTI CRAFT MAINTENANCE TECHNICIAN-C Statu s:ADM IN Location: [place] [address] HPI Consult Data Date of Consult: 09/15/24 [...] intervention necessary from urology. Call w questions. COUNTS INCLUDE 234 BEDS AT [facility] Medical History L5 vertebral fracture ESBL [...] (congestive heart failure) CAD (coronary artery disease), [place] coronary artery Home Medications ?Medication ?Instructions ?Recorded [...] IN 1 - 2 pump subdermal Q6H DC N FOR 02/14/24 09/06/24 History saltsable FEET [...] (Auto) 74.8 H, Lymph % (Auto) 14.8 L,Carroll % (Auto) 8.1, Eos % (Auto) 1.2, [...] MD> Cosigner Signature (if applicable): CC: RUTH MULTI CRAFT MAINTENANCE TECHNICIAN-C Zohreh Mckeon~ Signed [facility] Work Phone: [phone]) 217-755404-13-2025 Progress note Author Brenda Posadas [facility] Note Date/Time September 14, 2024 4:3 5pm [facility] Medical Records Department [address] [place] [address] Progress Note - Hospitalist 09/14/24 0910 MR#: [id number] Acct: [id number] Name: TRENTON JACKSON Rep #:[id number] : 1970 54 From: Brenda Posadas MD PCP: RUTH Lawrence, MULTI CRAFT MAINTENANCE TECHNICIAN-C Statu s:ADM IN Location: [place] [address] Reason for Visit Reason for Visit: Diagnoses [...] (Auto) 72.3 H, Lymph % (Auto) 19.3, [place] % (Auto) 6.0, Eos % (Auto) 1.3, [...] documentation, 38Minutes Charges/Coding Visit Charges Inpatient E&M: 11864 Subs Hosp L2 09/14/24 1635 <Electronically signed by Brenda Posadas MD> Cosigner Signature (if applicable): CC: ~ Signed [facility] Work Phone: 1([phone]) 961-446604-12-2025 Progress note Author Brenda Posadas [facility] Note Date/Time September 13, 2024 5:3 4pm [facility] Medical Records Department [address] [place] [address] Progress Note - Hospitalist 09/13/24 0938 MR#: [id number] Acct: [id number] Name: TRENTON JACKSON Rep #:[id number] : 1970 54 From: Brenda Posadas MD PCP: Zohreh Mckeon, [facility], MULTI CRAFT MAINTENANCE TECHNICIAN-C Statu s:ADM IN Location: [place] [address] Reason for Visit Reason for Visit: Diagnoses [...] Clarity Clear, Urine pH 6.0, Ur Specific [place] 1.010, Urine Protein 15 H, Urine Glucose [...] 75.6 H, Lymph % (Auto) 14.4 L, [place] % (Auto) 6.9, Eos % (Auto) 1.6, [...] right side but is worsewith urination, Dr. Mcneli with infectious disease evaluated and is repeatingurine [...] documentation, 40Minutes Charges/Coding Visit Charges Inpatient E&M: 04967 Subs Hosp L2 09/13/24 1734 <Electronically signed by Brenda Posadas MD> Cosigner Signature (if applicable): CC: ~ Signed [facility] Work Phone: 1(103) 292-176904-11-2025 Progress note Author Brenda Posadas [facility] Note Date/Time September 12, 2024 4:2 3pm [facility] Medical Records Department [address] [place] [address] Progress Note - Hospitalist 09/12/24 1615 MR#: [id number] Acct: [id number] Name: TRENTON JACKSON Rep #:[id number] : 1970 54 From: Brenda Posadas MD PCP: RUTH Lawrence, MULTI CRAFT MAINTENANCE TECHNICIAN-C Statu s:ADM IN Location: [place] [address] Reason for Visit Reason for Visit: Diagnoses [...] Neut % (Auto) 67.6, Lymph % (Auto) 23.2,[place] % (Auto) 5.8, Eos % (Auto) 1.8, [...] documentation, 38Minutes Charges/Coding Visit Charges Inpatient E&M: 23624 Subs Hosp L2 09/12/24 7181 <Electronically signed by Brenda Posadas MD> Cosigner Signature (if applicable): CC: ~ Signed [facility] Work Phone: 1(686) 482-611104-11-2025 Consult note Author Nichelle Mcneil [facility] Note Date/Time September 12, 2024 2:5 8pm [facility] Medical Records Department [address] [place] [address] Consultation - Infectious Dx 09/12/24 1453 MR#: [id number] Acct: [id number] Name: TRENTON JACKSON Rep #:[id number] : 1970 54 From: Nichelle osborne MD PCP: Zohreh Mckeon, [facility], MULTI CRAFT MAINTENANCE TECHNICIAN-C Statu s:ADM IN Location: [place] [address] Assessment & Plan Assessment/Plan (1) Emphysematous cystitis: [...] performed and neg except as noted above. COUNTS INCLUDE 234 BEDS AT [facility] Medical History L5 vertebral fracture ESBL [...] (congestive heart failure) CAD (coronary artery disease), [place] coronary artery Home Medications ?Medication ?Instructions ?Recorded [...] IN 1 - 2 pump subdermal Q6H DC N FOR 02/14/24 09/06/24 History saltsable FEET [...] Neut % (Auto) 67.6, Lymph % (Auto) 23.2,[place] % (Auto) 5.8, Eos % (Auto) 1.8, [...] MD> Cosigner Signature (if applicable): CC: RUTH MULTI CRAFT MAINTENANCE TECHNICIAN-C Zohreh Mckeon~ Signed [facility] Work Phone: 1(655) 143-178304-10-2025 Progress note Author Brenda Posadas [facility] Note Date/Time September 11, 2024 4:1 0pm [facility] Medical Records Department [address] [place] [address] Progress Note - Hospitalist 09/11/24 1606 MR#: [id number] Acct: [id number] Name: TRENTON JACKSON Rep #:[id number] : 1970 54 From: Brenda Posadas MD PCP: RUTH Lawrence, MULTI CRAFT MAINTENANCE TECHNICIAN-C Statu s:ADM IN Location: [facility] [id number]- 1 Reason for Visit Reason for Visit: [...] % (Auto) 68.0, Lymph % (Auto) 22.6, Carroll % (Auto) 6.3, Eos % (Auto) 1.9, [...] the colon consistent with constipation. Reading Location: [facility] Physical Exam Narrative General: Alert, oriented, [...] documentation, 37Minutes Charges/Coding Visit Charges Inpatient E&M: 78202 Subs Hosp L2 09/11/24 1610 <Electronically signed by Brenda Posadas MD> Cosigner Signature (if applicable): CC: ~ Signed [facility] Work Phone: 1(753) 122-263004-10-2025 Radiology Diagnostic study [facility]04-09-2025 Progress note Author Brenda Posadas [facility] Note Date/Time September 10, 2024 5:34 pm [facility] Medical Records Department [address] [place] [address] Progress Note - Hospitalist 09/10/24 1731 MR#: [id number] Acct: [id number] Name: TRENTON JACKSON Rep #:[id number] : 1970 54 From: Brenda Posadas MD PCP: RUTH Lawrence, MULTI CRAFT MAINTENANCE TECHNICIAN-C Statu s:ADM IN Location: [place] [address] Reason for Visit Reason for Visit: Diagnoses [...] (Auto) 72.8 H, Lymph % (Auto) 18.5L, Carroll % (Auto) 6.0, Eos % (Auto) 1.6, [...] Posadas MD Charges/Coding Visit Charges Inpatient E&M: 35262 Subs Hosp L1 09/10/24 1734 <Electronically signed by Brenda Posadas MD> Cosigner Signature (if applicable): CC: ~ Signed [facility] Work Phone: 1(552) 900-182504-08-2025 Progress note Author Brenda Posadas [facility] Note Date/Time September 09, 2024 6:46 pm [facility] Medical Records Department [address] [place] [address] Progress Note - Hospitalist 09/09/24 1839 MR#: [id number] Acct: [id number] Name: TRENTON JACKSON Rep #:[id number] : 1970 54 From: Brenda Posadas MD PCP: RUTH Lawrence, MULTI CRAFT MAINTENANCE TECHNICIAN-C Statu s:ADM REHAN Location: [place] [address] Reason for Visit Reason for Visit: Diagnoses [...] Clarity Clear, Urine pH 6.0, Ur Specific [place] 1.010, Urine Protein 30 H, Urine Glucose [...] % (Auto) 67.1, Lymph % (Auto) 23.9, Carroll % (Auto) 5.5, Eos % (Auto) 2.3, [...] documentation, 40Minutes Charges/Coding Visit Charges Inpatient E&M: 61570 Subs Hosp L2 09/09/24 6232 <Electronically signed by Brenda Posadas MD> Cosigner Signature (if applicable): CC: ~ Signed [facility] Work Phone: 1(775) 197-919104-07-2025 Progress note Author Brenda Posadas [facility] Note Date/Time September 08, 2024 7:37 pm [facility] Medical Records Department [address] [place] [address] Progress Note - Hospitalist 09/08/24 1000 MR#: [id number] Acct: [id number] Name: TRENTON JACKSON Rep #:[id number] : 1970 54 From: Brenda Posadas MD PCP: RUTH Lawrence, MULTI CRAFT MAINTENANCE TECHNICIAN-C Statu s:ADM REHAN Location: [place] [address] Reason for Visit Reason for Visit: Diagnoses [...] % (Auto) Cancelled, Lymph % (Auto) Cancelled, Carroll % (Auto) Cancelled, Eos % (Auto) Cancelled, [...] Drop Cells Cancelled, Ovalocytes Cancelled, Stomatocytes Cancelled, [place] Bodies Cancelled, [place] Cells Cancelled, Bite Cells Cancelled, Crenated Cell [...] 77.8 H, Lymph % (Auto) 14.5 L, [place] % (Auto) 5.0, Eos % (Auto) 1.7, [...] % (Auto) 64.6, Lymph % (Auto) 25.7, [place]% (Auto) 6.0, Eos % (Auto) 2.4, Baso [...] recommend MRI for further characterization. Reading [facility] Physical Exam Narrative General: Resting comfortably [...] documentation, 52Minutes Charges/Coding Visit Charges Inpatient E&M: 06373 Subs Hosp L3 09/08/24 1640 <Electronically signed [...] Cosigner Signature (if applicable): cc: ~* Signed [facility] Work Phone: 1(602) 606-884504-07-2025 History and physical note Author Rosaura Crane [facility] Note Date/Time September 07, 2024 10:0 0pm [facility] Medical Records Department [address] [place] [address] H&P Exam - Hospitalist 09/07/242133 MR#: [id number] Acct: [id number] Name: TRENTON JACKSON Rep #:[id number] : 1970 54 From: Rosaura Crane MD PCP: RUTH Lawrence, MULTI CRAFT MAINTENANCE TECHNICIAN-C Statu s:ADM REHAN [facility] HPI - General General Date [...] which resolved who re- presents to the [facility] ED on 09/07/24 with history [...] not obtained upon requested evaluation of patient. COUNTS INCLUDE 234 BEDS AT THE [facility] Medical History L5 vertebral fracture ESBL [...] (congestive heart failure) CAD (coronary artery disease), [place] coronary artery Home Medications ?Medication ?Instructions ?Recorded [...] IN 1 - 2 pump subdermal Q6H DC N FOR 02/14/24 Unknown History saltsable FEET [...] % (Auto) Cancelled, Lymph % (Auto) Cancelled, [place] % (Auto) Cancelled, Eos % (Auto) Cancelled, [...] Drop Cells Cancelled, Ovalocytes Cancelled, Stomatocytes Cancelled, [place] Bodies Cancelled, Lore Cells Cancelled, Bite Cells [...] 77.8 H, Lymph % (Auto) 14.5 L, Carroll % (Auto) 5.0, Eos % (Auto) 1.7, [...] recommend MRI for further characterization. Reading [facility] Assessment & Plan Assessment/Plan (1) Intractable [...] which resolved who re- presents to the [facility] ED on 09/07/24 with history [...] 16 minutes. Charges/Coding Visit Charges Inpatient E&M: 78149 Init Hosp L3 Procedures Hospitalists Procedures: 32417 Advncd Care Plan 30 Min 09/07/24 2200 <Electronically signed by Rosaura Crane MD> Cosigner Signature (if applicable): CC: VSC MULTI CRAFT MAINTENANCE TECHNICIAN-C Zohreh Mckeon; Dr. Rosaura Crane MD~ Signed [facility] Work Phone: 1([phone]) 807-805804-06-2025 Discharge summary Author Davis Ibarra [facility] Note Date/Time September 07, 2024 9:32 pm [facility] Medical Records Department [address] [place] [address] Emergency Department Summary 09/07/24 MR#: [id number] Acct: [id number] Name: TRENTON JACKSON Rep #:[id number] : 1970 54 From: Davis Gibson PCP: RUTH Lawrence, MULTI CRAFT MAINTENANCE TECHNICIANBrian Statu s:REG ER Location: ED HPI History of Present Illness Chief Complaint: Nausea/Vomiting PFSH COUNTS INCLUDE 234 BEDS AT THE [facility] Medical History L5 vertebral fracture ESBL [...] (congestive heart failure) CAD (coronary artery disease), [place] coronary artery Home Medications ?Medication ?Instructions ?Recorded [...] IN 1 - 2 pump subdermal Q6H DC N FOR 02/14/24 Unknown History saltsable FEET [...] reviewed, Vital signs reviewed Constitutional: please see [facility] HENT: MMM Eyes: Pupils equal round and [...] History obtained from others: none Consults: none [facility] Narrative: The patient was initially [...] PCU oBS This note was generated with [employer] dictation software. It may contain incorrectwords, spelling, [...] H Lymph % (Auto) Cancelled 14.5 L [place] % (Auto) Cancelled 5.0 Eos % (Auto) [...] Drop Cells Cancelled Ovalocytes Cancelled Stomatocytes Cancelled [place] Bodies Cancelled Lore Cells Cancelled Bite Cells [...] recommend MRI for further characterization. Reading [facility] Discharge Plan Triage Chief Complaint: Nausea/Vomiting [...] Care Provider: Zohreh Mckeon Referrals: Zohreh Mckeon, MULTI CRAFT MAINTENANCE TECHNICIANBrian [Primary Care Provider] - Print Language: Mauritanian What to do if you have Problems For any increased pain, shortness of breath, bleeding, nausea or vomiting, chestpain, or any unexpected problems, contact your Primary Care Provider. Call [facility] ([phone]) or report to the closest Emergency Room. Call 911 if necessary. 09/07/242131 <Electronically signed by Davis Ibarra DO> Cosigner Signature (if applicable): CC: RUTH Mckeon ~ Signed [facility] Work Phone: 1(842) 862-122404-06-2025 Radiology Diagnostic study [facility]04-06-2025 Discharge summary Author Davis Ibarra [facility] Note Date/Time September 07, 2024 9:32 pm [facility] Medical Records Department [address] [place] [address] Emergency Department Summary 09/07/24 MR#: [id number] Acct: [id number] Name: TRENTON JACKSON Rep #:[id number] : 1970 54 From: Davis Gibson PCP: RUTH Lawrence, MULTI CRAFT MAINTENANCE TECHNICIANBrian Statu s:REG ER Location: ED HPI History of Present Illness Chief Complaint: Nausea/Vomiting [facility] Medical History L5 vertebral fracture ESBL (extended [...] (congestive heart failure) CAD (coronary artery disease), [place] coronary artery Home Medications ?Medication ?Instructions ?Recorded [...] IN 1 - 2 pump subdermal Q6H DC N FOR 02/14/24 Unknown History saltsable FEET [...] History obtained from others: none Consults: none [facility] Narrative: The patient was initially [...] PCU oBS This note was generated with [employer] dictation software. It may contain incorrectwords, spelling, [...] H Lymph % (Auto) Cancelled 14.5 L [place] % (Auto) Cancelled 5.0 Eos % (Auto) [...] Drop Cells Cancelled Ovalocytes Cancelled Stomatocytes Cancelled [place] Bodies Cancelled Lore Cells Cancelled Bite Cells [...] recommend MRI for further characterization. Reading [facility] Discharge Plan Triage Chief Complaint: Nausea/Vomiting [...] Care Provider: Zohreh Mckeon Referrals: Zohreh Mckeon, MULTI CRAFT MAINTENANCE TECHNICIAN-C [Primary Care Provider] - Print Language: Mauritanian What to do if you have Problems For any increased pain, shortness of breath, bleeding, nausea or vomiting, chestpain, or any unexpected problems, contact your Primary Care Provider. Call [facility] ([phone]) or report to the closest Emergency Room. Call 911 if necessary. 09/07/242131 <Electronically signed by Davis Ibarra DO> Cosigner Signature (if applicable): CC: RUTH MULTI CRAFT MAINTENANCE TECHNICIAN-C Zohreh Mckeon ~ Signed [facility] Work Phone: 1(437) 385-206704-04-2025 Discharge summary Author Zack Card [facility] Note Date/Time September 05, 2024 3:35 pm [facility] Medical Records Department [address] [place] [address] Emergency Department Summary 09/05/24 MR#: [id number] Acct: [id number] Name: TRENTON JACKSON Rep #:[id number] : 1970 54 From: Zack Han PCP: RUTH Lawrence, MULTI CRAFT MAINTENANCE TECHNICIAN-C Statu s:REG ER Location: ED HPI History [...] latex. History of cholecystectomy and appendectomy. [facility] Medical History L5 vertebral fracture ESBL (extended [...] (congestive heart failure) CAD (coronary artery disease), [place] coronary artery Home Medications ?Medication ?Instructions ?Recorded [...] IN 1 - 2 pump subdermal Q6H DC N FOR 02/14/24 Unknown History saltsable FEET [...] I discussed her MRI review noting her L3-J1efaafen disc. Discussed likely causing her radicular symptoms. [...] clinician: N/A This note was generated with [employer] software. It may contain incorrectwords, spelling, and [...] 79.7 H Lymph % (Auto) 14.1 L [place] % (Auto) 5.1 Eos % (Auto) 0.2 [...] Active Staff] - 3-5 Days Zohreh Mckeon, MULTI CRAFT MAINTENANCE TECHNICIAN-C [Primary Care Provider] - Activity Restrictions/Additional Instructions: [...] your glucose with your insulin. Print Language: Mauritanian Disposition Disposition: Home, Self Care What to do if you have Problems For any increased pain, shortness of breath, bleeding, nausea or vomiting, chestpain, or any unexpected problems, contact your Primary Care Provider. Call [facility] ([phone]) or report to the closest Emergency Room. Call 911 if necessary. 09/05/24 7310 <Electronically signed by Zack Han> Cosigner Signature (if applicable): CC: RUTH MULTI CRAFT MAINTENANCE TECHNICIAN-C Zohreh Mckeon ~ Signed [facility] Work Phone: 1(128) 540-885204-01-2025 Consult note Author Haven Viramontes [facility] Note Date/Time September 02, 2024 2:33 pm [facility] Medical Records Department [address] [facility] [place] [address] Counseling Note - Pharmacy 09/02/24 1432 MR#: [id number] Acct: [id number] Name: TRENTON JACKSON Rep #:[id number] : 1970 54 From: Haven Viramontes PCP: RUTH Lawrence, MULTI CRAFT MAINTENANCE TECHNICIAN-C Statu s:ADM IN Y Location: [place] [address] Pharmacy [facility] Pharmacy Service has performed discharge medication reconciliation and counseling for this patient. 1. ACETAMINOPHEN 1000MG PO Q8 2. OXYCODONE 5MG Q4H PRN PAIN - Do not take with [place] 3. STOP GABAPENTIN The patient's discharge medication [...] Signature (if applicable): Date CC: ~ Signed [facility] Work Phone: 1(983) 275-186504-01-2025 Discharge summary Author Latricia Aaron [facility] Note Date/Time September 02, 2024 12:4 7pm [facility] Medical Records Department [facility] [place] [address] Discharge Summary 09/02/24 1232 MR#: [id number] Acct: [id number] Name: TRENTON JACKSON Rep #:[id number] : 1970 54 From: Latricia Aaron MD PCP: RUTH Lawrence, MULTI CRAFT MAINTENANCE TECHNICIAN-C Statu s:ADM IN Location[place] [facility] [id number] Providers Date of Admission: 08/26/24 Date of Discharge: 09/02/24 Primary Care Physician: RUTH Lawrence, MULTI CRAFT MAINTENANCE TECHNICIAN-C Consultations 08/26/24 20:30 Consult: Vascular Surgery Routine [...] Requested for PT OT eval and social science research assistant to assist with discharge planning ? 09/02/2024 patient was denied transfer to long-term facility by her insurance company since she [...] 80.7 H, Lymph % (Auto) 14.4 L, [place] % (Auto) 4.0, Eos % (Auto) 0.2, [...] Latricia Aaron Primary Care Provider: Zohreh Mckeon [facility] Consulting Providers: Brenda Posadas; Riccardo Ng; [...] 3XD Referrals / Follow Up: Zohreh Mckeon, MULTI CRAFT MAINTENANCE TECHNICIAN-C [Primary Care Provider] - Within 1 Week Disposition Disposition (needs filled in before D/C Order can be placed): Home Health Service Charges/Coding Visit Charges Inpatient E&M: 38364 Disch Hosp >30min 09/02/24 1247 <Electronically signed by Latricia Aaron MD> Cosigner Signature (if applicable): CC: VSC MULTI CRAFT MAINTENANCE TECHNICIAN-C Zohreh Mckeon; Dr. Latricia Aaron MD~ Signed [facility] Work Phone: 1(137) 829-682704-01-2025 [facility]04-01-2025 Progress note Author Latricia Aaron [facility] Note Date/Time September 02, 2024 9:14 am [facility] Medical Records Department [address] [place] [address] Progress Note - Hospitalist 09/02/24 0751 MR#: [id number] Acct: [id number] Name: TRENTON JACKSON Rep #:[id number] : 1970 54 From: Latricia Aaron MD PCP: Zohreh Mckeon, VSC, MULTI CRAFT MAINTENANCE TECHNICIAN-C Statu s:ADM IN Location: [facility] FW754-2 Reason for Visit Reason for Visit: Diagnoses [...] 80.7 H, Lymph % (Auto) 14.4 L, [place] % (Auto) 4.0, Eos % (Auto) 0.2, [...] Requested for PT OT eval and social science research assistant to assist with discharge planning 3. Peripheral [...] documentation, 36minutes Charges/Coding Visit Charges Inpatient E&M: 98098 Subs Hosp L2 09/02/24 0914 <Electronically signed by Latricia Aaron MD> Cosigner Signature (if applicable): CC: ~ Signed [facility] Work Phone: 1(667) 433-838903-31-2025 Progress note Author Latricia Aaron [facility] Note Date/Time September 01, 2024 12: 47pm [facility] Medical Records Department [address] [facility] [place] [address] Progress Note - Hospitalist 09/01/24 0819 MR#: [id number] Acct: [id number] Name: TRENTON JACKSON Rep #:[id number] : 1970 54 From: Latricia Aaron MD PCP: Zohreh Mckeon, RUTH, MULTI CRAFT MAINTENANCE TECHNICIAN-C Statu s:ADM IN Location: [address] Reason for Visit Reason for Visit: [...] Requested for PT OT eval and social science research assistant to assist with discharge planning 3. Peripheral [...] 38 minutes Charges/Coding Visit Charges Inpatient E&M: 80080 Subs Hosp L2 09/01/24 1247 <Electronically signed by Latricia Aaron MD> Cosigner Signature (if applicable): CC: ~ Signed [facility] Work Phone: 1(240) 699-420703-30-2025 Progress note Author Nicole Trujillo [facility] Note Date/Time August 31, 2024 2:1 2pm [facility] Medical Records Department [address] [place] [address] Progress Note - Hospitalist 08/31/24 0854 MR#: [id number] Acct: [id number] Name: TRENTON JACKSON Rep #:[id number] : 1970 54 From: Nicole Trujillo DO PCP: RUTH Lawrence, MULTI CRAFT MAINTENANCE TECHNICIAN-C Statu s:ADM IN Location: [place] SY290-4 Reason for Visit Reason for Visit: Left [...] for tomorrow Charges/Coding Visit Charges Inpatient E&M: 84751 Subs Hosp L1 08/31/24 1412 <Electronically signed by Nicole Trujillo DO> Cosigner Signature (if applicable): CC: ~ Signed [facility] Work Phone: 1(792) 659-467503-29-2025 Progress note Author Nicole Trujillo [facility] Note Date/Time August 30, 2024 3:3 1pm [facility] Medical Records Department [address] [place] [address] Progress Note - Hospitalist 08/30/24 1528 MR#: [id number] Acct: [id number] Name: TRENTON JACKSON Rep #:[id number] : 1970 54 From: Nicole Trujillo DO PCP: RUTH Lawrence, MULTI CRAFT MAINTENANCE TECHNICIAN-C Statu s:ADM IN Location: [place] [address] Reason for Visit Reason for Visit: Left [...] awaiting pre-CERT. Charges/Coding Visit Charges Inpatient E&M: 10470 Subs Hosp L1 08/30/24 1531 <Electronically signed by Nicole Trujillo DO> Cosigner Signature (if applicable): CC: ~ Signed [facility] Work Phone: 1(530) 447-736003-28-2025 Progress note Author Nicole Trujillo [facility] Note Date/Time August 29, 2024 5:0 3pm [facility] Medical Records Department [address] [place] [address] Progress Note - Hospitalist 08/29/24 1647 MR#: [id number] Acct: [id number] Name: TRENTON JACKSON Rep #:[id number] : 1970 54 From: Nicole Trujillo DO PCP: RUTH Lawrence, MULTI CRAFT MAINTENANCE TECHNICIAN-C Statu s:ADM IN Location: [place] [address] Reason for Visit Reason for Visit: Left [...] % (Auto) 64.7, Lymph % (Auto) 24.4, Carroll% (Auto) 7.6, Eos % (Auto) 2.4, Baso [...] awaiting pre-CERT. Charges/Coding Visit Charges Inpatient E&M: 77554 Subs Hosp L1 08/29/24 1703 <Electronically signed by Nicole Trujillo DO> Cosigner Signature (if applicable): CC: ~ Signed [facility] Work Phone: 1([phone]) [phone] Discharge summary Author Nicole Trujillo [facility] Note Date/Time August 29, 2024 9:5 0am [facility] Medical Records Department [address] [place] [address] [facility] MR#: [id number] Acct: [id number] Name: TRENTON JACKSON Rep #:[id number] : 1970 54 From: Nicole Trujillo DO PCP: RUTH Lawrence, MULTI CRAFT MAINTENANCE TECHNICIAN-C Statu s:ADM IN Certification of patient admission REQUIRED AT TIME OF ADMISSION. I CERTIFY THAT POST-HOSPITAL ECF SERVICES ARE REQUIRED TO BE GIVEN ON AN IN-PATIENT BASIS BECAUSE OF THE ABOVE NAMED PATIENT'S NEED FOR LONG-TERM CARE ON A CONTINUING BASIS FOR THE [...] Nicole Trujillo Primary Care Provider: Zohreh Mckeon [facility] Consulting Providers: Brenda Posadas; Riccardo Ng [...] 0RF Referrals / Follow Up: Zohreh Mckeon, MULTI CRAFT MAINTENANCE TECHNICIAN-C [Primary Care Provider] - 08/29/24 0950 <Electronically signed by Nicole Trujillo DO> Cosigner Signature (if applicable): CC: VSC MULTI CRAFT MAINTENANCE TECHNICIAN-C Zohreh Mckeon; Dr. Riccardo Ng MD; Dr. Brenda Posadas MD ~ [facility] Work Phone: [phone]) [phone] Progress note Author Nicole Trujillo [facility] Note Date/Time August 28, 2024 6:0 1pm [facility] Medical Records Department [address] [place] [address] Progress Note - Hospitalist 08/28/24 6587 MR#: [id number] Acct: [id number] Name: TRENTON JACKSON Rep #:[id number] : 1970 54 From: Nicole Trujillo DO PCP: Zohreh Mckeon Gideon, MULTI CRAFT MAINTENANCE TECHNICIAN-C Statu s:ADM IN Location: [place] AM274-6 Reason for Visit Reason for Visit: Left [...] % (Auto) 66.7, Lymph % (Auto) 22.7, [place]% (Auto) 6.7, Eos % (Auto) 3.0, Baso [...] patient currently appears euvolemic -Continue aspirin and beta-lidna -Await verification of the rest of her [...] -Full code Charges/Coding Visit Charges Inpatient E&M: 42765 Subs Hosp L2 08/28/24 1801 <Electronically signed by Nicole Trujillo DO> Cosigner Signature (if applicable): CC: ~ Signed [facility] Work Phone: 1(124) 424-496003-26-2025 Progress note Author Nicole Trujillo [facility] Note Date/Time August 27, 2024 2:5 8pm [facility] Medical Records Department [address] [place] [address] Progress Note - Hospitalist 08/27/24 0725 MR#: [id number] Acct: [id number] Name: TRENTON JACKSON Rep #:[id number] : 1970 54 From: Nicole Trujillo DO PCP: RUTH Lawrence, MULTI CRAFT MAINTENANCE TECHNICIAN-C Statu s:ADM IN Location: ICU CVICU20 2-1 Reason for Visit Reason for Visit: Left leg pain Subjective Subjective Patient is a 54-year-old white female with multiple comorbidities and complianceissues who presented to the emergency department at [facility] on 08/26/2024 with a chief [...] % (Auto) 69.6, Lymph % (Auto) 20.9, [place] % (Auto) 5.7, Eos % (Auto) 2.8, [...] (Auto) 72.4 H, Lymph % (Auto) 20.6, [place] % (Auto) 4.4, Eos % (Auto) 1.6, [...] IMPRESSION: No acute cardiopulmonary process. Reading Location: [facility] Venous Doppler Study 08/26/24 10:40 Interpretation [...] radiology consultation may be appropriate. Reading Location: [place] [address] Physical Exam Const alert, oriented x3 and [...] -Full code Charges/Coding Visit Charges Inpatient E&M: 70823 Subs Hosp L2 08/27/24 1458 <Electronically signed by Nicole Trujillo DO> Cosigner Signature (if applicable): CC: ~ Signed [facility] Work Phone: 1(162) [phone] Consult note Author Riccardo Ng [facility] Note Date/Time August 27, 2024 7:3 3am [facility] Medical Records Department [address] [place] [address] Consultation - Surgical 08/27/24 0705 MR#: [id number] Acct: [id number] Name: TRENTON JACKSON Rep #:[id number] : 1970 54 From: Riccardo Ng MD PCP: Zohreh Mckeon, RUTH, MULTI CRAFT MAINTENANCE TECHNICIAN-C Statu s:ADM IN Location: ICU CVICU20 2-1 [...] change and minimal relief with pain medications. COUNTS INCLUDE 234 BEDS AT [facility] Medical History ESBL (extended spectrum beta-lactamase) producing [...] (congestive heart failure) CAD (coronary artery disease), [place] coronary artery Home Medications ?Medication ?Instructions ?Recorded [...] IN 1 - 2 pump subdermal Q6H DC N FOR 02/14/24 Unknown History saltsable FEET [...] % (Auto) 69.6, Lymph % (Auto) 20.9, [place] % (Auto) 5.7, Eos % (Auto) 2.8, [...] (Auto) 72.4 H, Lymph % (Auto) 20.6, [place] % (Auto) 4.4, Eos % (Auto) 1.6, [...] IMPRESSION: No acute cardiopulmonary process. Reading Location: [facility] Venous Doppler Study 08/26/24 10:40 Interpretation [...] radiology consultation may be appropriate. Reading Location: [facility] Charges/Coding Visit Charges Inpatient E&M: 88386 Init Hosp L3 08/27/24 0733 <Electronically signed by Riccardo Ng MD> Cosigner Signature (if applicable): CC: RUTH Mckeon~ Signed [facility] Hospital Work Phone: 1(510) 568-946203-26-2025 Discharge summary Author Jeison Abrams [facility] Note Date/Time August 27, 2024 7:0 7am [facility] Medical Records Department [address] [place] [address] Emergency Department Summary 08/26/24 MR#: [id number] Acct: [id number] Name: TRENTON JACKSON Rep #:[id number] : 1970 54 From: Jeison Gibson PCP: RUTH Lawrence, MULTI CRAFT MAINTENANCE TECHNICIAN-C Statu s:ADM IN Location: ICU CVICU20 2-1 [...] failure but states she has heart problems. COUNTS INCLUDE 234 BEDS AT THE [facility] <Dr. Jeison Abrams DO - Last Filed: 08/26/24 15:33> COUNTS INCLUDE 234 BEDS AT THE [facility] Medical History ESBL (extended spectrum beta-lactamase) producing [...] (congestive heart failure) CAD (coronary artery disease), [place] coronary artery Home Medications ?Medication ?Instructions ?Recorded [...] IN 1 - 2 pump subdermal Q6H DC N FOR 02/14/24 Unknown History saltsable FEET [...] Abrams, DO - Last Filed: 08/26/24 15:33> [facility] Narrative Medical decision making narrative: Differential [...] % (Auto) 69.6 Lymph % (Auto) 20.9 Carroll % (Auto) 5.7 Eos % (Auto) 2.8 [...] IMPRESSION: No acute cardiopulmonary process. Reading Location: [facility] Venous Doppler Study 08/26/24 10:40 Interpretation Summary Deep veins of the left lower extremity are patent and compressible segmentally. There is no evidence of left lower extremity deep vein thrombosis. The left great saphenous vein appears patent andcompressible segmentally. Incidental finding, right SFA stent occlusion Ordering Physician: Jeison Abrams Referring Physician: Nathaly Lainez [facility] Performed By: Héctor Ayoub RVT Lower Extremity CTA 08/26/24 14:00 IMPRESSION: Technically limited study as described. Severe multilevel disease as described level by level above. Interventional radiology consultation may be appropriate. Reading Location: [facility] <Dr. Vaughn Daugherty, DO - Last Filed: 08/27/24 03:29> [facility] Narrative Medical decision making narrative: Differential [...] % (Auto) 69.6 Lymph % (Auto) 20.9 Carroll % (Auto) 5.7 Eos % (Auto) 2.8 [...] IMPRESSION: No acute cardiopulmonary process. Reading Location: [facility] Venous Doppler Study 08/26/24 10:40 Interpretation [...] radiology consultation may be appropriate. Reading Location: [place] [address] Discharge Plan Disposition Disposition: Acute Care Hospital [facility] Discharge Date/Time: 08/26/24 20:14 What to do if you have Problems For any increased pain, shortness of breath, bleeding, nausea or vomiting, chestpain, or any unexpected problems, contact your Primary Care Provider. Call [facility] ([phone]) or report to the closest Emergency Room. Call 911 if necessary. 08/27/24 0707 <Electronically signed by Jeison Abrams DO> Cosigner Signature (if applicable): 08/27/24 0329 <Electronically signed by Vaughn Daugherty DO> CC: RUTH MULTI CRAFT MAINTENANCE TECHNICIANBrian Mckeon ~ Signed [facility] Work Phone: 1(654) 528-558303-25-2025 History and physical note Author Brenda Posadas [facility] Note Date/Time August 26, 2024 8:1 8pm [facility] Medical Records Department [address] [place] [address] H&P Exam - Hospitalist 08/26/242002 MR#: [id number] Acct: [id number] Name: TRENTON JACKSON Rep #:[id number] : 1970 54 From: Brenda Posadas MD PCP: Zohreh Mckeon Gideon, MULTI CRAFT MAINTENANCE TECHNICIAN-C Statu s:ADM IN Location: ICU CVICU20 2-1 HPI - General General Date of Admission: 08/26/24 Date of Service: 08/26/24 Chief Complaint: Left lower extremity pain HPI Narrative TRENTON JACKSON, is a 54-year-old female with history of coronary artery disease, combined heart failure, hypertension, diabetes presented to [facility] ED 08/26/2024 due to pain [...] and is not sure what is what COUNTS INCLUDE 234 BEDS AT THE [facility] Medical History ESBL (extended spectrum beta-lactamase) producing [...] (congestive heart failure) CAD (coronary artery disease), [place] coronary artery Home Medications ?Medication ?Instructions ?Recorded [...] IN 1 - 2 pump subdermal Q6H DC N FOR 02/14/24 Unknown History saltsable FEET [...] % (Auto) 69.6, Lymph % (Auto) 20.9, Carroll % (Auto) 5.7, Eos % (Auto) 2.8, [...] IMPRESSION: No acute cardiopulmonary process. Reading Location: [facility] Venous Doppler Study 08/26/24 10:40 Interpretation [...] radiology consultation may be appropriate. Reading Location: [facility] Assessment & Plan Assessment/Plan (1) Acute [...] 76 Minutes Charges/Coding Visit Charges Inpatient E&M: 38841 Init Hosp L3 08/26/242017 <Electronically signed by Brenda Posadas MD> Cosigner Signature (if applicable): CC: [facility] MULTI CRAFT MAINTENANCE TECHNICIAN-C Zohreh Mckeon; Dr. Brenda Posadas MD~ Signed [facility] Work Phone: 1(153) 530-323603-25-2025 Evaluation note* Diagnosis Onset Date Resolution Status [...] vomiting reso lved September 09, 2024 7:01pm [facility] Work Phone: 1(367) 237-253303-25-2025 Radiology Diagnostic study [facility]03-25-2025 Radiology Diagnostic study [facility]01-30-2025 [facility]01-26-2025 Evaluation note* Diagnosis Onset Date Resolution Status [...] diabetes mellitus acute August 26, 2024 8:03pm [facility] Work Phone: 1(952) 648-271501-26-2025 Evaluation note* Diagnosis Onset Date Resolution Status [...] and vomiting acute September 07, 2024 9:35pm [facility] Work Phone: 1(445) 802-685601-26-2025 Evaluation note* Diagnosis Onset Date Resolution Status [...] and vomiting acute September 09, 2024 7:01pm [facility] Work Phone: 1(382) 628-827201-26-2025 Evaluation note* Diagnosis Onset Date Resolution Status [...] and vomiting resolved September 09, 2024 7:01pm [facility] Work Phone: 1(178) 597-150612-21-2024 Hospital Discharge instructions Patient Education 05/23/2024 23:02:36 [...] for heart disease or after a stroke) Vvie-wpp-wmssgbo medicines for diarrhea, nausea, and vomiting are generally OK unless you have bleeding, fever, or severe abdominal pain. General care If symptoms are severe, rest at home for the next 24 hours, or until you are feeling better. Washing your hands with soap and water, or using alcohol-based hand white kid buffer is the best way to stop the [...] after. Wash your hands or use alcohol-based white kid buffer after using cutting boards, countertops, and knives that have been in contact with raw food. Dry your hands with a single use towel. Keep uncooked meats away from cooked and xlfhw-vp-dsu foods. Follow-up care Follow up with your [...] every 6 hours), or very dark urine 5716-6637 [employer]. [address] [place] [address], [place] [address]. All rights reserved. This information is not intended as a substitute for professional medical care. Always follow yourhealthcare professional's instructions. Follow Up Care 05/23/2024 19:13:17 With:BRITTANEY PEARSON MD Address: [address] [place] [id number]- When:2-4 days [facility] 12-20-2024 Note Discharge Instructions Thank you for allowing [facility] to assist you with your healthcare needs. The following is importantdischarge information regarding your hospital visit. Diagnosis from Today's Visit Vomiting What to Do Next Instructions from Your Care Team No qualifying data available. Post Acute Orders No qualifying data available. You Need to Schedule the Following Appointments Follow Up with BRITTANYE PEARSON MD When:Within 2-4 days Where:[address] [place] [address]- Allergies Latex Medications Please ask your primary [...] for heart disease or after a stroke) Wifk-ckp-ppuodar medicines for diarrhea, nausea, and vomiting are generally OK unless you have bleeding, fever, or severe abdominal pain. General care If symptoms are severe, rest at home for the next 24 hours, or until you are feeling better. Washing your hands with soap and water, or using alcohol-based hand white kid buffer is the best way to stop the [...] after. Wash your hands or use alcohol-based white kid buffer after using cutting boards, countertops, and knives that have been in contact with raw food. Dry your hands with a single use towel. Keep uncooked meats away from cooked and vojxc-xb-gxt foods. Follow-up care Follow up with your [...] every 6 hours), or very dark urine 6842-9628 [employer]. [address] [place] [address]. All rights reserved. This information is not intended as a substitute for professional medical care. Always follow yourhealthcare professional's instructions. Additional Information VACCINATE! IT SAVES LIVES! Members of the community who have not yet received the COVID-19 vaccine and would like to receive it can visit one of [facility] vaccine clinics. There are many vaccine clinic locations within the [facility]. For locations and available times, please visit www.gettheshot.coronavirus.[place].gov/. It is important to note that some COVID mobile vaccine clinics are held outdoors and may be canceled in rainy or stormy conditions. To learn more about pediatric vaccinations (ages 5-11), we invite you to visit the [facility] webpage. https://www.[email or web address].org/pages/7599-Liiov-Imifxdfwman-Cxifqszwtr-Emtwx-Pcq stions.htmlTo learn more about the COVID-19 vaccine, we invite you to visit the CDC website for a list of frequently asked questions. https://www.cdc.gov/coronavirus/2019-ncov/vaccines/faq.html [facility] Patient Portal Access Instructions: Stay connected with your healthcare team and access your personal medical information anytime with the [facility] Patient Portal. If you would like a full copy of your medical records please contact the [facility] Medical Records Department Sunday through Sunday between 8a.m. and 4:30p.m. Please follow the directions below to access the portal: 1.Access the email account you provided upon registration to the [facility].2.Look for an invitation email from [facility].3.Open the email and access the invitation link: Accept Invitation to [facility]4.Fill in the required stephens to create your [...] you will allow to register on the [facility] Patient Portal for access to your information. You can also access the [email or web address] Patient Portal on the [employer]. Simply click on Health Records under [facility] and then click on the [facility] logo. [...] Call your local pharmacy or go to http://bit.commercetools/6V6Wt8t to find one close to you.3.Make use of household items: Use cat litter or old coffee grounds to dispose medications if other options arenot available. Mix your drugs with these household products, seal them in an airtight container andthrow it into the garbage. Call [facility]: [phone] to be sure your drugs can be [...] aware that I should contact my doctor. Patient/Supervisor Receiving And Processing Signature: Date/Time: Relationship to Patient: Witness Name/Signature: Date/Time: [facility]12-20-2024 Note* Exam Date Time Procedure Performing Provider Status 05/23/24 7:51 PM EKG [ED AO] - CV RAYMUNDO VIEIRA DO; Auth (Verified) ECG Final Report Sinus rhythm Incomplete left bundle branch block Left ventricular hypertrophy Anterior Q waves, possibly due to LVH Electronic Signature: RAYMUNDO VIEIRA DO 05/23/2024 20:06:14 [facility]11-26-2024 [facility] 04-25-2024 Evaluation note* Diagnosis Onset Date Resolution Status Admit Date Chronic pain resolved April 3:52pm Dehydration resolved April 3:52pm Hyperglycemia resolved April 252023 3:52pm Hyponatremia resolved April 3:52pm Leukocytosis resolved April 3:52pm Nausea vomiting and diarrhea resolve d April 25, 2024 3:52pm Tachycardia resolved April 3:52pm Candidiasis of breast inactive [facility] 2023 3:52pm Colitis inactive April 25, 2024 3:52pm Debility inactive April 25, 2024 3:52pm Generalized weakness inactive [facility] 2023 3:52pm UTI (urinary tract infection) acute June 29, 2024 8:31pm Colitis deleted June 29, 2024 8:31pm Dehydration resolved June 29, 2024 8:31pm Sepsis due to gram-negative UTI deleted June 29 8:31pm [facility] Work Phone: 1(947) 198-460706-18-2024 Telephone encounter Note* Telephone Encounter - Stephanie De La Cruz - 11/20/2023 8:48 AM EDT The patient was discharged from [facility] 10-20-23 with an order to schedule with the Heart Failure Clinic. The Clinic reached out to the patient with no response. Therefore, this is considered a deferral of the Clinic's services at this time. [facility]06-18-2024 Miscellaneous Notes* Telephone Encounter - Stephanie De La Cruz - 11/20/2023 8:48 AM EDT The patient was discharged from [facility] 10-20-23 with an order to schedule with the Heart Failure Clinic. The Clinic reached out to the patient with no response. Therefore, this is considered a deferral of the Clinic's services at this time. documented in this [facility]-2024 Telephone encounter Note * Telephone Encounter - Stephanie De La Cruz - 10/22/2023 9:35 AM EDT Patient was discharged from [facility] 10-20-23 with an order to schedule with the Heart Failure Clinic. However, the patient was then immediately admitted to a long-term facility. A letter was mailedto the patient asking them to contact the Clinic upon discharge from the facility. [facility]-20-2024 Miscellaneous Notes* Telephone Encounter - Stephanie De La Cruz - 10/22/2023 9:35 AM EDT Patient was discharged from [facility] 10-20-23 with an order to schedule with the Heart Failure Clinic. However, the patient was then immediately admitted to a long-term facility. A letter was mailedto the patient asking them to contact the Clinic upon discharge from the facility. documented in this encounterScci Hospital [facility]05-17-2024 NoteHNO ID: [id number] Author: MICHAEL NGUYỄN LSW Service: Care Management Author Type: Product Safety And Standards Engineer Type: Care Mgt Progress Note Filed: 10/19/2023 14:54 Note Text: CARE MANAGEMENT DISCHARGE NOTE SERVICE DATE: October 19, 2023 SERVICE TIME: 1:56 PM Admission Date: 10/18/2023 LOS: 0 days Discharge Arrangement Discharge Arrangement: Detention Facility Was an expedited discharge program used?: No Services Arranged Return to SNF Provider Name: [facility] Caregiver Assessment Caregiver is ready, willing and able to meet the patient's needs as recommended by the inter-professional team: No Caregiver needed Transportation Arrangements Transportation Arrangements: Ambulance Transportation Agency and Phone #:: [facility] ( [facility] ) [phone] / [phone] Date of Trip: 10/19/23 Time of Trip: 0800 Type of Service: BLS Non-emergency Is Patient Medicaid Pending?: No Was transportation financial coverage discussed with family?: Patient Air Export Logistics Manager Location: [facility] Destination: [facility] Handoff Communication: Handoff to: Primary Care Physician Primary Care Physician Name/Phone: Nathaly Leonard, Nathaly Leonard Additional Information: The facility [place] [facility] reports they can accept the patient [...] ED to Hosp-Admission (Current) from 10/18/2023 in [facility] Detention Facility Agency [facility] SIGNATURE: SANDRA Kennedy PATIENT NAME: Trenton Jackson DATE: October 19, 2023 TIME: 1:56 PM CONTACT #: [phone] HNO ID: [id number] Author: MICHAEL NGUYỄN LSW Service: Care Management Author Type: Product Safety And Standards Engineer Type: Care Mgt Initial Assessment Filed: 10/19/2023 15:16 Note Text: CARE MANAGEMENT: ASSESSMENT AND DISCHARGE PLAN SERVICE DATE: October 19, 2023 SERVICE TIME: 1:00 PM PCP: Nathaly Leonard Primary Contact: Extended Emergency Contact Information Primary Emergency Contact: Curry Jackson Jr Address: [address] [facility] [address] [place] [address] [facility] Mobile Relation: Spouse Secondary Emergency Contact: Rebecca Dueñas Address: [place] [address] [facility] Relation: Mother Admission Status: Observation Insurance Provider: [employer] [place] [employer] Discharge Planning requested by: Per Department Practice Potential Transition Plans Detention Facility/Intermediate Care Facility Advance Directives Current Advance Directive: None College Coach Attempted to Assist with AD Completion: Yes [...] Be able to go home, General wellness [place] of Choice Explained: [place] of [place] Given: Yes Level of Care Discussed: Detention Facility Are you interested in bedside delivery of your medications? No Discharge Planning Participant(s): Patient Patient/Family Comments: Caregiver Assessment: Caregiver is ready, willing and able to meet the patient's needs as recommended by the inter-professional team: No Caregiver needed Transport at Discharge: Transportation Arrangements: Ambulance Transportation Agency and Phone #:: [facility] ( [facility] ) [phone] / [phone] Date of Trip: 10/19/23 Time of Trip: 0800 Type of Service: BLS Non-emergency Is Patient Medicaid Pending?: No Was transportation financial coverage discussed with family?: Patient Air Export Logistics Manager Location: [facility] Destination: [facility] Needs Prior to Discharge: Needs Prior [...] her hospital bed. Support: Rebecca Dueñas (mother) [phone] and Curry Jackson Jr (Spouse) [phone] Pharmacy: [facility] [address] [place] [id number] PCP: Nathaly Leonard, Nathaly Leonard The patient was at [facility] 09-02-23 till 09-08-23 after fall and found to have Closed displaced intertrochanteric fracture of right femur. Ortho did surgery and the patient went to [facility]. The patient reports she wants [...] 19, 2023 TIME: 2:59 PM CONTACT #: [phone] Telephone encounter Note* Telephone Encounter - Ethel Alonso - 10/18/2023 3:00 PM EDT Spoke to Cindi - she is going [facility] to arrange for transport. She did state that sometimes they can picking supervisor in 15 minutes but sometimes it can take hours. Cindi does have direct phone # and knows I am in office until 530pm should she need to reach the office, after that to call the main office phone #. Also verified [facility] ED address. Thank you Ethel Shah [facility]05-16-2024 Miscellaneous Notes* Telephone Encounter - Ethel Alonso - 10/18/2023 3:00 PM EDT Spoke to Cindi - she is going to contact [facility] to arrange for transport. She did state that sometimes they can picking supervisor in 15 minutes but sometimes it can take hours. Cindi does have direct phone # and knows I am in office until 530pm should she need to reach the office, after that to call the main office phone #. Also verified [facility] ED address. Thank you Ethel Shah * Telephone Encounter - Ethel Alonso - 10/18/2023 10:41 AM EDT Returned Sara's call from [employer] regarding Trenton - last nurse we spoke to (Bryant), they were to take patient to [facility] and follow up with local ortho md. Called and spoke to Cindi - when order was given to Bryant in regards to giving an antibiotic & taking to [facility] ED for surgical consult if no improvement - there was no follow through on that end. The snf physician did give an antibiotic 09/27/23 - 10/04/23 and nothing was done after that until Cindi saw Trenton on 10/15/23 & sent her to [facility] ED. The ED gave her pain medication [...] May for review Thank you Ethel Dave [place] [facility] documented in this encounterS[facility]-2024 Telephone encounter Note * Telephone Encounter - Ethel Alonso - 10/18/2023 10:41 AM EDT Returned Sara's call from [employer] regarding Trenton - last nurse we spoke to (Bryant), they were to take patient to [facility] ED and follow up with local ortho md. Called and spoke to Cindi - when order was given to Bryant in regards to giving an antibiotic & taking to [facility] ED for surgical consult if no improvement - there was no follow through on that end. The snf physician did give an antibiotic 09/27/23 - 10/04/23 and nothing was done after that until Cindi saw Trenton on 10/15/23 & sent her to [facility] ED. The ED gave her pain medication [...] May for review Thank you Ethel Dave Customer Service And Sales Consultant Alyssa [facility]05-15-2024 Telephone encounter Note* Telephone Encounter - Ehtel Alonso - 10/17/2023 4:43 PM EDT Left 2 messages [facility]05-15-2024 Miscellaneous Notes* Telephone Encounter - Ethel Alonso [...] calling if other than patient: Bryant @ [facility] Return call to if other than patient: same Best contact number: [phone] Thank you, Pauly Heredia October 09, 2023 9:46 AM Electronically signed by Tenzin Customer Service And Sales Consultant Alyssa Ethel Sue at 10/09/2023 10:51 AM EDT documented in this encounterScci Hospital [facility]05-13-2024 Discharge summary Author Jeremiah Rawls [facility] October 15, 2023 5:33pm Note Date/Time October 15, 2023 4:51p m [facility] Medical Records Department [address] [place] [address] Emergency Department Summary 10/15/23 MR#: [id number] Acct: [id number] Name: TRENTON JACKSON Rep #:[id number] : 1970 53 From: Jeremiah Rawls MD PCP: [facility] atus:[facility] ER Location: ED HPI History of Present Illness Chief Complaint: Lower Extremity Injury Narrative Narrative: 53-year-old female past medical history of right hip arthroplasty status post fracture at the end of September around [facility]. She states that she was trying to go to the bathroom, but did not make it and had fallen. She sustained a fracture of her right hip. She states that she was sent to [place] for surgery. She is now to long-term facility locally for rehabilitation. She takes oxycodone and a muscle relaxer. She denies any recent falls but states she is continuing to have right hip pain. She also states that she has history of a surgical wound infection for which she was on antibiotics for 7 days intravenously. She states that long-term facility wants her wound evaluated as well. [facility] Medical History Acute dyspnea Aftercare following surgery of the circulatory system Alcohol abuse Amputation toe CAD (coronary artery disease), [place] coronary artery CHF (congestive heart failure) Depression [...] she can be discharged back to the long-term facility. She will continue her oxycodone and muscle relaxer. She will continue her rehabilitation of her right hip. Disposition is discharged to long-term facility in stable condition. Radiography Diagnostic Testing: [...] come pick it up [facility]Primary [facility] Provider] - Activity Restrictions/Additional Instructions: Continue your previous pain medications. Your postoperative wound does not appear to be acutely infected. Disposition Disposition: Home, Self Care What to do if you have Problems For any increased pain, shortness of breath, bleeding, nausea or vomiting, chestpain, or any unexpected problems, contact your Primary Care Provider. Call [facility] ([phone]) or report to the closest Emergency Room. Call 911 if necessary. 10/15/23 7081 <Electronically signed by Jeremiah Rawls MD> Cosigner Signature (if applicable): CC: [facility] ~ Signed [facility] Work Phone: 1(546) 537-373605-07-2024 Telephone encounter Note* Telephone Encounter - Ethel [...] calling if other than patient: Bryant @ [facility] Return call to if other than patient: same Best contact number: [phone] Thank you, Pauly Heredia October 09, 2023 9:46 AM [facility]05-06-2024 Telephone encounter Note* Telephone Encounter - Ethel Alonso - 10/08/2023 3:45 PM EDT Left message for Bryant to get an update on [place]on. Last message to her was instructions from Dr. May regarding giving her antibiotics, taking her to [place] emergency department if no improvements for a surgical consult. Thank you Ethel Shah [facility]05-06-2024 Miscellaneous Notes* Telephone Encounter - Ethel Alonso - 10/08/2023 3:45 PM EDT Left message for Bryant to get an update on [place]. Last message to her was instructions from Dr. May regarding giving her antibiotics, taking her to [place] emergency department if no improvements for a [...] which facility was the patient seen at: [facility] Was an appointment scheduled (Y/N): no-unable to schedule per tool Person calling if other than patient: Bryant([facility] [place] Return call to if other than patient: Bryant Best contact number: [phone] Thank you, Melany Simon October 03, 2023 1:23 PM [facility] Telephone encounter Note * Telephone Encounter - Ethel Alonso - 10/04/2023 2:40 PM EDT ----- Message from eMlany Simon sent at 10/03/2023 1:23 PM EDT [...] which facility was the patient seen at: [facility] Was an appointment scheduled (Y/N): no-unable to schedule per tool Person calling if other than patient: Bryant([facility] [place] Return call to if other than patient: Bryant Best contact number: [phone] Thank you, Melany Simon October 03, 2023 1:23 PM [facility]05-01-2024 Telephone encounter Note* Telephone Encounter - Ethel [...] he would like her taken to the [place] Emergency Department for a surgical consult. Left my direct phone number so Bryant can call to let me know status. Thank you Ethel Sahh [facility]05-01-2024 Miscellaneous Notes* Telephone Encounter - Ethel Alonso [...] he would like her taken to the [place] Emergency Department for a surgical consult. Left [...] Person calling if other than patient: [facility] Return call to if other than patient: bryant Best contact number: [phone] Thank you, Agata Das October 02, 2023 11:16 AM [facility] Telephone encounter Note * Telephone Encounter - [...] Person calling if other than patient: [facility] Return call to if other than patient: bryant [facility] contact number: [phone] Thank you, Aagta Das October 02, 2023 11:16 AM [facility]04-29-2024 Telephone encounter Note* Telephone Encounter - Ethel Alonso - 10/01/2023 11:04 AM EDT Left message w/Clare. She will have Stephania call me when she is back on the floor with an update on [place]on. All Clare can say is that she knows Trenton is still on the antibiotics. Gave Clare my direct phone #. Thank you Ethel Shah [facility]04-29-2024 Miscellaneous Notes* Telephone Encounter - Ethel Alonso [...] wound to review. thx documented in [facility] Telephone encounter Note * Telephone Encounter - Ethel Alonso - 10/01/2023 10:38 AM EDT ----- Message from Diya May MD sent at 09/30/2023 1:53 PM EDT ----- Please get me an update on her status. Also, a new picture of the wound to review. thx [facility]04-25-2024 Telephone encounter Note* Telephone Encounter - Ethel Alonso - 09/27/2023 3:34 PM EDTSummary: ABSCESS AT INCISION Received message from Stephania at [facility] stating Trenton is forming an [...] a local orthopedic since she is in [place]. Dr. Posadas - [phone] He would like if the facility could send a picture of the incision and to start her on Doxycycline 100mg BID. Called Stephania with instructions and Dr. Posadas' phone number. Thank you Ethel Shah [facility]04-25-2024 Miscellaneous Notes* Telephone Encounter - Ethel Alonso - 09/27/2023 3:34 PM EDTSummary: ABSCESS AT INCISION Received message from Stephania at [facility] stating Trenton is forming an [...] a local orthopedic since she is in [place]. Dr. Posadas - [phone] He would like if the facility could send a picture of the incision and to start her on Doxycycline 100mg BID. Called Stephania with instructions and Dr. Posadas' phone number. Thank you Ethel Shah documented in this encounterS[facility] Miscellaneous Notes* Telephone Encounter - Ethel Alonso - 09/14/2023 2:37 PM EDT Left a message for Nurse Mgr Bryant Ruiz at the rehab facility ([phone]) that we do not need toschedule an appointment at this time but we would like to have a disc with an x-ray of Trenton's pelvis for review 09/17/23. Thank you Ethel Shah * Telephone Encounter - Ethel Alonso - 09/12/2023 9:24 AM EDT ----- Message from Evelyne Madsen sent at 09/11/2023 2:07 PM EDT ----- Regarding: Edgtp-Qmquuc-rh follow up post op- hip fracture Subject [...] which facility was the patient seen at: [facility] Was an appointment scheduled (Y/N): N/A Person calling if other than patient: REHAB [facility] Return call to if other than patient: REHAB Best contact number: [phone] Thank you, Evelyne Madsen September 11, 2023 2:07 PM documented in this encounterS[facility]-2024 NoteHNO ID: [id number] Author: DANI LAGOS, CHAYITO Service: Nursing Author Type: Registered Nurse Type: Nursing Progress Note Filed: 09/07/2023 15:39 Note Text: Other: Okay to give oxy early prior to 1700 d/c per [facility]04-05-2024 NoteHNO ID: [id number] Author: KAYLA JOHNSON, ? Service: Care Management Author Type: ? Type: Care Mgt Progress Note Filed: 09/07/2023 14:05 Note Text: [facility] ([facility] PRECERT NOTE [employer] approved Detention Facility for [facility]/. Precert approved through 09/18. The [facility] Medicaid precert for [facility] in CS portal is approved for 09/06 to 09/18 Reference #: [id number] --[id number] -- ID: [id number] For any additional questions regarding approvals, transport or care management needs, please contact the CM assigned to this patient in the Treatment Team. SIGNATURE: Kayla Johnson DATE: September 07, 2023 TIME: 2:05 [facility]04-05-2024 NoteHNO ID: [id number] Author: MONICA CHAPARRO APRN.CNP Service: General Surgery Author Type: Nurse Practitioner Type: Progress Notes Filed: 09/07/2023 09:11 Note Text: Trauma Surgery Progress Note SERVICE DATE: 09/07/2023 Trauma Service Pager: For questions or concerns Mon-Fri 6a-5p please page [phone]. After 5pm and on Weekends and Holidays, [...] 0659 09/07/23 07 - 09/08/23 0659 Shift 3838-3473 9364-8029 4740-7062 24 Hour Total 0961-6481 5640-4717 8534-2382 24 Hour Total INTAKE Shift Total OUTPUT Urine 900 1000 1900 Urine Not Saved. 1 x 1 x Output ( External Collection Device 09/04/23 2971) 776 0102 1900 Emesis 50 50 Emesis (ml) 50 [...] 09/02/2023 Fall 09/02/2023 Coronary artery disease involving [place] coronary artery of [place] heart without angina pectoris 07/21/2018 Cannabis use [...] not included)...[facility]04-04-2024 NoteHNO ID: [id number] Author: MELISSA PHAM PA-C Service: General Surgery Author Type: Physician Color Control Supervisor Type: Progress Notes Filed: 09/06/2023 14:41 Note [...] trauma [facility]04-04-2024 NoteHNO ID: [id number] Author: MELISSA PHAM PA-C Service: General Surgery Author Type: Physician Color Control Supervisor Type: Progress Notes Filed: 09/06/2023 11:21 Note Text: Trauma Surgery Progress Note SERVICE DATE: 09/06/2023 Trauma Service Pager: For questions or concerns Mon-Fri 6a-5p please page [phone]. After 5pm and on Weekends and Holidays, please page [phone] if in ICU or [phone] if on RNF. SUBJECTIVE: NAEON. Patient continues [...] - 09/06/2365809/06/23 07 - 09/07/23 0659 Shift 1768-5417 9933-3478 4506-3039 24 Hour Total 3438-4404 4846-5911 7657-9500 24 Hour Total INTAKE Shift Total OUTPUT Urine 0144 645 5240 Output ( External Collection Device 09/04/23 1025) 0306 436 6956 Shift Total 5278 856 9641 Weight (kg) 72.6 72.6 72.6 72.6 72.6 [...] 09/02/2023 Fall 09/02/2023 Coronary artery disease involving [place] coronary artery of [place] heart without angina pectoris 07/21/2018 Cannabis use disorder, mild, abuse 07/20/2018 Chronic Uncontrolled type 2 diabetes mellitus with hyperglycemia, with long-term current use of insulin ([facility]) 06/08/2018 Chronic systolic heart failure ([facility]) 06/08/2018 Anxiety and depression 06/08/2018 Cardiomy (more content not included)...[facility]04-03-2024 NoteHNO ID: [id number] Author: TERRIE URIOSTEGUI RN Service: Care Management [...] disorder, mild, abuse Coronary artery disease involving [place] coronary artery of [place] heart without angina pectoris Trauma Fall Resolved Problems: * No resolved hospital problems. * Physician: Jozef Barros DO SIGNATURE: Terrie Uriostegui RN PATIENT NAME: Trenton Jackson DATE: September 05, 2023 TIME: 4:09 PM PAGER/CONTACT #: [phone] [facility] Health [facility]04-03-2024 NoteHNO ID: [id number] Author: TERRIE URIOSTEGUI RN Service: Care Management Author Type: Registered Nurse Type: Care Mgt Progress Note Filed: 09/05/2023 15:44 Note Text: CARE MANAGEMENT PROGRESS NOTE SERVICE DATE: 09/05/2023 SERVICE TIME: 2:52 PM LOS: 3 days [place] of Choice Given: Yes Level of Care Discussed: Detention Facility Financial Disclosure Provided: No Provider List: Detention Facility Provider list within the patient's requested geographic area shared with the patient/family: Yes within: 15 miles of zip code: [address] Quality and resource use metrics shared with the patient that are relevant to the patient's goals of care and treatment preferences:: Yes DC Plan: SNF , discussed pt/ot recs for SNF, pt agreeable to snf list, snf list provided, FOC is [facility]; agreeable to sending additional referrals to [facility], [facility] , and [facility] ; referrals sent Barriers to dc: precert needs to be initiated Anticipated dc date: 09/05-09/06 Transportation: pt [place] likely need [place] ADDENDUM: [facility] still has not accepted, pt agreeable to starting precert with [facility], precert requested; Attestation note in place on 09/04 still needs cosigned SIGNATURE: Terrie Uriostegui RN PATIENT NAME: Trenton Jackson DATE: September 05, 2023 TIME: 2:52 PM PAGER/CONTACT #: [phone] [facility] Health [facility]04-03-2024 NoteHNO ID: [id number] Author: DIYA MAY MD Service: Care Management [...] disorder, mild, abuse Coronary artery disease involving [place] coronary artery of [place] heart without angina pectoris Trauma Fall Resolved Problems: * No resolved hospital problems. * Physician: Jahaira Alfaro MD SIGNATURE: Terrie Uriostegui RN PATIENT NAME: Trenton Jackson DATE: September 05, 2023 TIME: 11:55 AM PAGER/CONTACT #: [phone]–[facility]akes[facility]04-03-2024 NoteHNO ID: [id number] Author: ROBERTO DAS PA-C Service: General Surgery Author Type: Physician Color Control Supervisor Type: Progress Notes Filed: 09/05/2023 07:58 Note [...] 09/04/23699 - 09/05/2365809/05/23699 - 09/06/23 0659 Shift 0986-6557 9440-7770 2027-9854 24 Hour Total 1717-7944 5631-1596 6766-9061 24 Hour Total INTAKE PO 120 120 [...] included)...[facility] 09-05-2023 NoteHNO ID: [id number] Author: NICHELLE VIRAMONTES MD Service: Orthopaedic Surgery [...] any issues.[facility]04-02-2024 NoteHNO ID: [id number] Author: NORM RUEDA LSW Service: Care Management Author Type: Product Safety And Standards Engineer Type: Care Mgt Progress Note Filed: 09/04/2023 [...] or get rid of a hangover (eye vest tailor)? No 6. CAGE Screening? No 7. If [...] 04, 2023 TIME: 10:39 AM PAGER/CONTACT #: [phone] [facility] Health Care 09-04-2023 NoteHNO ID: [id number] Author: ROBERTO DAS PA-C Service: General Surgery Author Type: Physician Color Control Supervisor Type: Progress Notes Filed: 09/04/2023 08:51 Note Text: Trauma Surgery Progress Note SERVICE DATE: 09/04/2023 Trauma Service Pager: For questions or concerns Mon-Fri 6a-5p please page [phone]. After 5pm and on Weekends and Holidays, please page [phone] if in ICU or [phone] if on [...] - 09/04/23 0609/04/23699 - 09/05/23 0659 Shift 2133-9827 5321-2264 0368-9456 24 Hour Total 6188-3886 0376-4007 9912-9302 24 Hour Total INTAKE PO 120 120 [...] not included)...[facility]04-02-2024 NoteHNO ID: [id number] Author: DIYA MAY MD Service: Orthopaedic Surgery [...] any issues.[facility]04-01-2024 NoteHNO ID: [id number] Author: SAVANNA FREEMAN LSW Service: Care Management Author Type: Product Safety And Standards Engineer Type: Care Mgt Progress Note Filed: 09/03/2023 16:06 Note Text: CARE MANAGEMENT PROGRESS NOTE SERVICE DATE: 09/03/2023 SERVICE TIME: 4:05 PM LOS: 1 day SW Consult SW attempted to see pt to complete trauma assessment, pt off the floor. SIGNATURE: SANDRA Barbosa PATIENT NAME: Trenton Jackson DATE: September 03, 2023 TIME: 4:05 PM PAGER/CONTACT #: [phone] 09-03-2023 NoteHNO ID: [id number] Author: GHASSAN PÉREZ APRN.CRNA Service: Anesthesiology Author Type: Nurse Collector Type: Anesthesia Procedure Notes Filed: 09/03/2023 12:36 [...] September 03, 2023 TIME: 12:35 PM CSN: [id number] [facility]04-01-2024 NoteHNO ID: [id number] Author: MOODY HODGE DO Service: Anesthesiology Author [...] September 03, 2023 TIME: 12:34 PM CSN: [id number] [facility]04-01-2024 NoteHNO ID: [id number] Author: GHASSAN PÉREZ APRN.CRNA Service: Anesthesiology Author Type: Nurse Collector Type: Anesthesia Procedure Notes Filed: 09/03/2023 12:34 Note Text: ANESTHESIOLOGY PROCEDURE NOTE Airway General Information Procedure Start Time/Medication Administration: 09/03/2023 12:10 PM Patient location during procedure: OR Timeout Performed Pre-procedure: timeout performed Consent Obtained: Yes Patient identity confirmed: arm band and patient Staffing APPRENTICE COOK: Ghassan Pérez APRN.APPRENTICE COOK Performed by: REGINA Indications and Patient Condition [...] no Airway not difficult SIGNATURE: Ghassan Pérez APRN.APPRENTICE COOK PATIENT NAME: Trenton Jackson DATE: September 03, 2023 TIME: 12:34 PM CSN: [id number] [facility]04-01-2024 NoteHNO ID: [id number] Author: DARLYN JASSO RN Service: Care Management Author Type: Registered Nurse Type: Care Mgt Initial Assessment Filed: 09/03/2023 11:08 Note Text: CARE MANAGEMENT: ASSESSMENT AND DISCHARGE PLAN SERVICE DATE: September 03, 2023 SERVICE TIME: 10:55 AM PCP: Nathaly Leonard Primary Contact: Extended Emergency Contact Information Primary Emergency Contact: Curry Jackson Jr Address: [address] [place] [address] [facility] Mobile Relation: Spouse Secondary Emergency Contact: Rebecca Dueñas Address: [place] [address] [facility] Relation: Mother Admission Status: Inpatient Insurance Provider: [employer]ICA[employer] Discharge Planning requested by: Per Department Practice Potential Transition Plans To Be Determined Advance Directives Current Advance Directive: None College Coach Attempted to Assist with AD Completion: Yes [...] Ambulate a little better, Ambulate without stopping [place] of [place] Explained: [place] of Choice Given: Yes Level of Care Discussed: Detention Facility;Inpatient Rehab Facility Are you interested in [...] Xarelto although patient denies), HTN, HLD, GERD, LA, RA, seizures, GWYN, tobacco abuse, polysubstance abuse, prior incisional hernia repair, who presents as trauma transfer from [place]. Per EMS, patient feel on the wet [...] this. She wants to go close to [place] where she and her family lives. The patient will need transportation arranged at d/c. SIGNATURE: Darlyn Jasso RN PATIENT NAME: Trenton Jackson DATE: September 03, 2023 TIME: 10:54 AM CONTACT #: [phone] Maine Health Care04-01-2024 NoteHNO ID: [id number] Author: MONICA CHAPARRO APRN.CNP Service: General Surgery [...] 09/02/23699 - 09/03/2365809/03/23699 - 09/04/23 0659 Shift 5126-2084 5853-2820 6172-5618 24 Hour Total 0684-6804 5921-5992 3903-0704 24 Hour Total INTAKE Shift Total OUTPUT [...] femur (HCC) 09/02/2023 Coronary artery disease involving [place] coronary artery of [place] heart without angina pectoris 07/21/2018 Uncontrolled type 2 diabetes mellitus with hyperglycemia, with long-term current use of i (more content not included)...[facility] 09-03-2023 NoteHNO ID: [id number] Author: ALLI GARCÍA MD Service: Orthopaedic Surgery [...] 06/08/2018 Alli García MD Orthopaedic Surgery Pager #[phone] September 02[facility]03-31-2024 NoteHNO ID: [id number] Author: VIRGINIA BOSE sparkle Service: Pharmacy Author Type: Pharmacist Type: Plan of Care Filed: 09/06/2023 15:35 Note Text: PHARMACY MEDICATION REVIEW Patient Name: Trenton Jackson : 1970 The following medications were updated within the [facility] medication list based on discharge note from [place] 06/2023 - patient likely nonadherent with medications prior to admission based on fill history: Medications ADDED to [facility] medication list Carvedilol 12.5 mg tablet; Take [...] Take 50 gm daily Medications CHANGED on [facility] medication list Escitalopram 10 mg tablet; Take 10 mg daily Medications REMOVED from [facility] medication list Acetaminophen (no recent fills) Baclofen [...] completed by: Pharmacist: Virginia Bose [facility] Source of history: Care Everywhere records Medication nonadherence identified: Unable to assess Reconciliation completed: Yes Completed by: YOLANDA Patient interested in Bedside Delivery Services or using OP Pharmacy at discharge? Unable to assess Preferred outpatient pharmacy: [facility] [address] [place] [address] - [address] - [phone] [facility] [address] [place] [address] - [address] - [phone] Allergies: Latex Itching Comment:Red and dry cracking [...] of this encounter (statuses as of 09/14/2023) [facility]01-13-2024 Discharge summary Author Jeremy Alexander [facility] June 16, 2023 9:45am Note Date/Time June 16, 2023 9 :20am [facility] Medical Records Department [address] [place] [address] Discharge Summary 06/16/23 0920 MR#: [id number] Acct: [id number] Name: TRENTON JACKSON Rep #:[id number] : 1970 52 From: Jeremy Ahuja PCP: [facility] atus:ADM [place] Location: [place] [address] Providers Date of Admission: 06/13/23 Date of Discharge: 06/16/23 Primary Care Physician: [facility] Consultations 06/15/23 15:32 Consult: Podiatry Routine [...] was 100 yesterday and 65 today in marketing data specialist. Lantus insulin dose decreased From 25 to [...] Normal S2, no murmur. Decreased pulsation of [employer] CONSULTANT and dorsalis artery left more than right. [...] Attending Provider: Jeremy Alexander [facility] Providers: Talisha Boykin; Moody Gallagher [...] Adv Practice Prof] - Within 2 Weeks [facility],Nathaly Lainez [Primary Care Provider] - Moody Gallagher DPM [Med Staff - Active Staff] - Within 2 Weeks (For left ankle fracture. Status post TMA.) Disposition Disposition (needs filled in before D/C Order can be placed): Home, Self Care Charges/Coding Visit Charges Inpatient E&M: 63512 Disch Hosp >30min 06/16/23 0945 <Electronically signed by Jeremy Alexander MD> Cosigner Signature (if applicable): CC: Dr. Jeremy Alexander MD; [facility]~ Signed [facility] Work Phone: 1(154) 273-154601-13-2024 Discharge summary Author Jeremy Alexander [facility] June 16, 2023 9:20am Note Date/Time June 16, 2023 8 :42am [facility] Medical Records Department [address] [place] [address] [place] [address] Discharge Summary 06/16/23 0842 MR#: [id number] Acct: [id number] Name: TRENTON JACKSON Rep #:[id number] : 1970 52 From: Jeremy Ahuja PCP: [facility] atus:ADM [place] Location: [id number]- 1 Providers Date of Admission: 06/13/23 Primary Care Physician: [facility] Consultations 06/15/23 15:32 Consult: Podiatry Routine [...] % (Auto) 61.2, Lymph % (Auto) 22.9, Carroll % (Auto) 8.9, Eos % (Auto) 5.7 [...] % (Auto) 68.5, Lymph % (Auto) 20.3, [place] % (Auto) 6.0, Eos % (Auto) 3.9, [...] 79.1 H, Lymph % (Auto) 11.4 L, Carroll % (Auto) 4.9, Eos % (Auto) 3.2, [...] Attending Provider: Jeremy Alexander [facility] Providers: Talisha Boykin; Moody Gallagher [...] Adv Practice Prof] - Within 2 Weeks [facility] [Primary Care Provider] - Disposition Disposition (needs filled in before D/C Order can be placed): Home, Self Care Charges/Coding Visit Charges Inpatient E&M: 86377 Disch Hosp >30min 06/16/23 0920 <Electronically signed by Jeremy Alexander MD> Cosigner Signature (if applicable): CC: Dr. Jeremy Alexander MD; [facility]~ Signed [facility] Work Phone: 1(333) 639-635601-13-2024 Discharge summary Author Jeremy Alexander [facility] June 16, 2023 9:19am Note Date/Time June 16, 2023 8 :42am [facility] Medical Records Department [address] [place] [address] Instructions for Home/Discharge Instructions 06/16/23 0841 MR#: [id number] Acct: [id number] Name: TRENTON JACKSON Rep #:[id number] : 1970 52 From: Jeremy Ahuja PCP: [facility] atus:[place]M [place] Discharge Instructions Diet Discharge Diet: [...] Attending Provider: Jeremy Alexander Primary Care Provider: [facility] Consulting Providers: Talisha Boykin; Moody Gallagher [...] Qty: 30 0RF Referrals / Follow Up: [facility] [Primary Care Provider] - Yesenia Zambrano PA [Med Staff - Adv Practice Prof] - Within 2 Weeks Disposition Disposition (needs filled in before D/C Order can be placed): Home, Self Care 06/16/23 09<Electronically signed by Jeremy Alexander MD>Jeremy Alexander MD CC: ALEK Gallagher; Dr. Talisha Boykin MD; [facility] ~ Signed [facility] Work Phone: 1(927) 842-338001-12-2024 Progress note Author Jeremy Alexander [facility] June 15, 2023 5:50pm Note Date/Time June 15, 2023 5 :50pm [facility] Medical Records Department [address] [place] [address] Progress Note - Hospitalist 06/15/23 1532 MR#: [id number] Acct: [id number] Name: TRENTON JACKSON Rep #:[id number] : 1970 52 From: Jeremy Ahuja PCP: [facility] St atus:ADM [place] Location: [place] [address] Reason for Visit Reason for Visit: Diagnoses [...] % (Auto) 61.2, Lymph % (Auto) 22.9, Carroll % (Auto) 8.9, Eos % (Auto) 5.7 [...] Normal S2, no murmur. Decreased pulsation of [employer] CONSULTANT and dorsalis artery left more than right. [...] % (Auto) 61.2, Lymph % (Auto) 22.9, Carroll % (Auto) 8.9, Eos % (Auto) 5.7 [...] % (Auto) 68.5, Lymph % (Auto) 20.3, Carroll % (Auto) 6.0, Eos % (Auto) 3.9, [...] 79.1 H, Lymph % (Auto) 11.4 L, Carroll % (Auto) 4.9, Eos % (Auto) 3.2, [...] Sens 17 Charges/Coding Visit Charges Inpatient E&M: 85371 Subs Hosp L2 06/15/23 7307 <Electronically signed by Jeremy Alexander MD> Cosigner Signature (if applicable): CC: ~ Signed [facility] Work Phone: 1(325) 175-156801-11-2024 Progress note Author Jeremy Alexander [facility] June 14, 2023 3:46pm Note Date/Time June 14, 2023 3 :46pm [facility] Medical Records Department [address] [place] [address] Progress Note - Hospitalist 06/14/23 1538 MR#: [id number] Acct: [id number] Name: TRENTON JACKSON Rep #:[id number] : 1970 52 From: Jeremy Ahuja [facility] atus:ADM IN Location: [place] [address] Reason for Visit Reason for Visit: Diagnoses [...] (Auto) 76.1 H, Lymph % (Auto) 14.9 L,Carroll % (Auto) 5.5, Eos % (Auto) 2.3, [...] Normal S2, no murmur. Decreased pulsation of AWS CONSULTANT and dorsalis artery left more than right. [...] % (Auto) 68.5, Lymph % (Auto) 20.3, Carroll % (Auto) 6.0, Eos % (Auto) 3.9, [...] 79.1 H, Lymph % (Auto) 11.4 L, Carroll % (Auto) 4.9, Eos % (Auto) 3.2, [...] Sens 17 Charges/Coding Visit Charges Inpatient E&M: 23263 Subs Hosp L2 06/14/23 1546 <Electronically signed by Jeremy Alexander MD> Cosigner Signature (if applicable): CC: ~ Signed [facility] Work Phone: 1(585) 598-880301-10-2024 History and physical note Author Talisha Gomezjaycee [facility] June 13, 2023 7:02pm Note Date/Time June 13, 2023 1 2:[address] [place] [address] Health System Medical Records Department [address] [place] [address] History & Physical Exam 06/13/23 0012 MR#: [id number] Acct: [id number] Name: TRENTON JACKSON Rep #:[id number] : 1970 52 From: Talisha Boykin MD PCP: [facility] atus:ADM IN Location: [place] [id number] 1 HPI - General General Date of [...] managed for acute exacerbation of heart failure. COUNTS INCLUDE 234 BEDS AT THE [facility] Medical History Acute dyspnea Aftercare following surgery of the circulatory system Alcohol abuse Amputation toe CAD (coronary artery disease), [place] coronary artery CHF (congestive heart failure) Depression [...] % (Auto) 68.5, Lymph % (Auto) 20.3, Carroll % (Auto) 6.0, Eos % (Auto) 3.9, [...] elects to be full code. * Total plip-gf-cued time 16 minutes. Total time spent on evaluation and management of patient, reviewing chart and specialist notes, discussing plan with patient, discussion with nursing and ancillary staff as well as documentation: 76 mins Charges/Coding Visit Charges Inpatient E&M: 99510 Init Hosp L3 Procedures Hospitalists Procedures: 93859 Advncd Care Plan 30 Min 06/13/23 190 <Electronically signed by Talisha Boykin MD> Cosigner Signature (if applicable): CC: Dr. Talisha Boykin MD; [facility]~ Signed [facility] Work Phone: 1(263) 638-429201-10-2024 Progress note Author Jeremyemiliano Alexander [facility] June 13, 2023 2:49pm Note Date/Time June 13, 2023 2 :26pm [facility] Medical Records Department [address] [place] [address] Progress Note - Hospitalist 06/13/23 1312 MR#: [id number] Acct: [id number] Name: TRENTON JACKSON Rep #:[id number] : 1970 52 From: Jeremy Ahuja PCP: [facility] St atus:ADM IN Location: U UED-2 Objective [...] % (Auto) 68.5, Lymph % (Auto) 20.3, Carroll % (Auto) 6.0, Eos % (Auto) 3.9, [...] 79.1 H, Lymph % (Auto) 11.4 L, Carroll % (Auto) 4.9, Eos % (Auto) 3.2, [...] no further follow-up imaging recommended. Electronically Signed: Lauar Sam MD at 23:00 EST Reading Location ID and State: [address] [place] [address] , Service support , Physical Exam Narrative [...] Normal S2, no murmur. Decreased pulsation of AWS CONSULTANT and dorsalis artery left more than right. [...] % (Auto) 68.5, Lymph % (Auto) 20.3, Carroll % (Auto) 6.0, Eos % (Auto) 3.9, [...] 79.1 H, Lymph % (Auto) 11.4 L, Carroll % (Auto) 4.9, Eos % (Auto) 3.2, [...] Sens 17 Charges/Coding Visit Charges Inpatient E&M: 51012 Subs Hosp L2 06/13/23 3781 <Electronically signed by Jeremy Alexander MD> Cosigner Signature (if applicable): CC: ~ Signed [facility] Work Phone: 1(431) 606-908401-10-2024 Discharge summary Author Riccardo Hillman [facility] June 13, 2023 12:46am Note Date/Time June 12, 2023 8: 15pm [facility] Medical Records Department [address] [place] [address] Emergency Department Summary 06/12/23 MR#: [id number] Acct: [id number] Name: TRENTON JACKSON Rep #:[id number] : 1970 52 From: Riccardo Gibson PCP: [facility] atus:REG ER Location: ED HPI History [...] cough but denies any sputum production. [facility] Medical History Acute dyspnea Aftercare following surgery of the circulatory system Alcohol abuse Amputation toe CAD (coronary artery disease), [place] coronary artery CHF (congestive heart failure) Depression [...] % (Auto) 68.5 Lymph % (Auto) 20.3 Carroll % (Auto) 6.0 Eos % (Auto) 3.9 [...] sinus rhythm with a rate of 97. DC interval was normal at 178 ms. QRS [...] effusion, Hypoxia Disposition Disposition: Acute Care Hospital [facility] What to do if you have Problems For any increased pain, shortness of breath, bleeding, nausea or vomiting, chestpain, or any unexpected problems, contact your Primary Care Provider. Call [facility] ([phone]) or report to the closest Emergency Room. Call 911 if necessary. 06/13/23 0046 <Electronically signed by Riccardo Hillman DO> Cosigner Signature (if applicable): CC: [facility] ~ Signed [facility] Work Phone: 1(740) 761-861512-04-2023 Discharge summary Author Latricia Aaron [facility] May 07, 2023 12:08pm Note Date/Time May 07, 2023 1 2:02pm [facility] Medical Records Department [address] [place] [address] Discharge Summary 05/07/23 1121 MR#: [id number] Acct: [id number] Name: TRENTON JACKSON Rep #:[id number] : 1970 52 From: Latricia Aaron MD PCP: [facility] St atus:ADM IN Location: [facility] [id number] 1 Providers Date of Admission: 05/03/23 Date of Discharge: 05/07/23 Primary Care Physician: [facility] Consultations 05/03/23 21:00 Consult: Cardiology Routine Consulting [...] is a 52-year-old female who presented to [facility] ED on 05/03/2023 with worsening [...] Requested for PT OT eval and social science research assistant to assist with discharge planning 4. Constipation [...] % (Auto) 66.3, Lymph % (Auto) 22.0, Carroll % (Auto) 7.3, Eos % (Auto) 3.0, [...] Attending Provider: Latricia Aaron [facility] Providers: Alli Brito; Lei Justin; [...] Qty: 30 0RF Referrals / Follow Up: [facility] [Primary Care Provider] - 05/07/23 3:30 pm Disposition Disposition (needs filled in before D/C Order can be placed): Home, Self Care Charges/Coding Visit Charges Inpatient E&M: 01574 Disch Hosp >30min 05/07/23 1208 <Electronically signed by Latricia Aaron MD> Cosigner Signature (if applicable): CC: Dr. Latricia Aaron MD; [facility]~ Signed [facility] Work Phone: 1(687) 963-969412-04-2023 Consult note Author Josse Garcia [facility] May 07, 2023 11:50am Note Date/Time May 07, 2023 1 1:50am [facility] Medical Records Department [address] [place] [address] Counseling Note - Pharmacy 05/07/23 1149 MR#: [id number] Acct: [id number] Name: TRENTON JACKSON Rep #:[id number] : 1970 52 From: Josse Garcia [facility] St atus:ADM IN [facility] Pharmacy Service has performed discharge [...] Signature (if applicable): Date CC: ~ Signed [facility] Work Phone: 1(470) 954-590212-03-2023 Progress note Author Brenda Posadas [facility] May 06, 2023 4:01pm Note Date/Time May 06, 2023 8 :07am [facility] Medical Records Department [address] [facility] [address] Progress Note - Hospitalist 05/06/23802 MR#: [id number] Acct: [id number] Name: TRENTON JACKSON Rep #:[id number] : 1970 52 From: Brenda Posadas MD PCP: [facility] atus:ADM IN Location: [place] [address] Reason for Visit Reason for Visit: Diagnoses [...] % (Auto) 62.7, Lymph % (Auto) 24.3, Carroll % (Auto) 7.5, Eos % (Auto) 4.1, [...] is a 52-year-old female who presented to [facility] ED on 05/03/2023 with worsening [...] 35 minutes. Charges/Coding Visit Charges Inpatient E&M: 05939 Subs Hosp L2 05/06/23 1601 <Electronically signed by Brenda Posadas MD> Cosigner Signature (if applicable): CC: ~ Signed [facility] Work Phone: 1(140) 760-704712-03-2023 Progress note Author Alli Brito [facility] May 06, 2023 10:31am Note Date/Time May 06, 2023 1 0:31am [facility] Medical Records Department [address] [place] [address] Progress Note - Cardiology 05/06/23 1030 MR#: [id number] Acct: [id number] Name: TRENTON JACKSON Rep #:[id number] : 1970 52 From: Alli Brito MD PCP: [facility] atus:ADM IN Location: [place] [address] Subjective Subjective Patient seen and evaluated. Appears [...] % (Auto) 62.7, Lymph % (Auto) 24.3, Carroll % (Auto) 7.5, Eos % (Auto) 4.1, [...] % (Auto) 62.7, Lymph % (Auto) 24.3, Carroll % (Auto) 7.5, Eos % (Auto) 4.1, [...] of congestive heart failure which is systolic [place] Heart Association class III. It appears that [...] she would be a candidate for a MULTIMEDIA PRODUCTION ASSISTANT-D. (2) History of coronary artery disease: [...] Cosigner Signature (if applicable): CC: ~ Signed [facility] Work Phone: 1(503) 913-262912-02-2023 Progress note Author Brenda Posadas [facility] May 05, 2023 3:29pm Note Date/Time May 05, 2023 9 :59am [facility] Medical Records Department [address] [place] [address] Progress Note - Hospitalist 05/05/2358 MR#: [id number] Acct: [id number] Name: TRENTON JACKSON Rep #:[id number] : 1970 52 From: Brenda Posadas MD PCP: [facility] atus:ADM IN Location: [place] [address] Reason for Visit Reason for Visit: Diagnoses [...] % (Auto) 61.2, Lymph % (Auto) 23.6, Carroll % (Auto) 7.4, Eos % (Auto) 6.5 [...] insufficiency. Ordering Physician: Lei Justin Referring Physician: [facility] Performed By: Jyoti Pandey, EDMOND, RVT [...] is a 52-year-old female who presented to [facility] ED on 05/03/2023 with worsening [...] 35 minutes. Charges/Coding Visit Charges Inpatient E&M: 77203 Subs Hosp L2 05/05/23 1529 <Electronically signed by Brenda Posadas MD> Cosigner Signature (if applicable): CC: ~ Signed [facility] Work Phone: 1(411) 177-716112-02-2023 Progress note Author Alli Brito [facility] May 05, 2023 11:03am Note Date/Time May 05, 2023 1 1:03am [facility] Medical Records Department [address] [place] [address] Progress Note - Cardiology 05/05/23 1102 MR#: [id number] Acct: [id number] Name: TRENTON JACKSON Rep #:[id number] : 1970 52 From: Alli Brito MD PCP: [facility] atus:ADM [facility] Subjective Subjective Patient seen and [...] % (Auto) 61.2, Lymph % (Auto) 23.6, Carroll % (Auto) 7.4, Eos % (Auto) 6.5 [...] % (Auto) 61.2, Lymph % (Auto) 23.6, Carroll % (Auto) 7.4, Eos % (Auto) 6.5 [...] insufficiency. Ordering Physician: Lei Justin Referring Physician: [facility] Performed By: Jyoti Pandey, EDMOND, RVT Physical [...] of congestive heart failure which is systolic [place] Heart Association class III. It appears that [...] she would be a candidate for a MULTIMEDIA PRODUCTION ASSISTANT-D. (2) History of coronary artery disease: [...] Cosigner Signature (if applicable): CC: ~ Signed [facility] Work Phone: 1(239) 609-521112-01-2023 Progress note Author Brenda Posadas [facility] May 04, 2023 5:51pm Note Date/Time May 04, 2023 8 :34am [facility] Medical Records Department [address] [place] [address] Progress Note - Hospitalist 05/04/23 0826 MR#: [id number] Acct: [id number] Name: TRENTON JACKSON Rep #:[id number] : 1970 52 From: Brenda Posadas MD PCP: [facility] atus:ADM IN Location: [place] [address] Reason for Visit Reason for Visit: Diagnoses [...] 77.6 H, Lymph % (Auto) 13.6 L, Carroll % (Auto) 3.9, Eos % (Auto) 3.4, [...] is a 52-year-old female who presented to [facility] ED on 05/03/2023 with worsening [...] 35 minutes. Charges/Coding Visit Charges Inpatient E&M: 50481 Subs Hosp L2 05/04/23 1751 <Electronically signed by Brenda Posadas MD> Cosigner Signature (if applicable): CC: ~ Signed [facility] Work Phone: 1(864) 142-342612-01-2023 Consult note Author [facility] May 04, 2023 7:21am Note Date/Time May 04, 2023 6 :53am [facility] Medical Records Department [address] [place] [address] Consultation - Cardiology 05/04/23 0651 MR#: [id number] Acct: [id number] Name: TRENTON JACKSON Rep #:[id number] : 1970 52 From: Alli Brito MD [facility] St atus:ADM IN Location: [place] [address] Assessment & Plan Assessment/Plan (1) CHF (congestive heart failure): PLAN: She does have evidence of congestive heart failure which is systolic [place] Heart Association class III. It appears that [...] she would be a candidate for a MULTIMEDIA PRODUCTION ASSISTANT-D. (2) History of coronary artery disease: [...] demonstrated this and had been evaluated in [place] and had a stress test which demonstrated [...] [facility] coughing as [...] shewas admitted for further evaluation and management. COUNTS INCLUDE 234 BEDS AT THE [facility] Medical History (Updated 05/03/23 @ 17:53 by Paula Clayton) Acute dyspnea Aftercare following surgery of the circulatory system Alcohol abuse Amputation toe CAD (coronary artery disease), [place] coronary artery CHF (congestive heart failure) Depression [...] 77.6 H, Lymph % (Auto) 13.6 L, Carroll % (Auto) 3.9, Eos % (Auto) 3.4, [...] (Auto)77.6 H, Lymph % (Auto) 13.6 L, Carroll % (Auto) 3.9, Eos % (Auto) 3.4, [...] Lei Justin DO; Dr. Alli Brito MD; [facility]~ Signed [facility] Work Phone: 1(416) 678-495011-30-2023 History and physical note Author Lei Justin [facility] May 03, 2023 9:30pm Note Date/Time May 03, 2023 4:26pm [facility] Medical Records Department [address] [place], [place] [address] [place] [address] H&P Exam - Hospitalist 05/03/23 1624 MR#: [id number] Acct: [id number] Name: TRENTON JACKSON Rep #:[id number] : 1970 52 From: Lei swanson DO PCP: [facility] atus:ADM IN Location: [facility] [id number]- 1 HPI - General General Date of Admission: 05/03/23 Date of Service: 05/03/23 Chief Complaint: Worsening shortness of breath HPI Narrative TRENTON JACKSON, is a 52 F who presented to [facility] ED on 05/03/2023 with 3 [...] discomfort. No other acute concerns this time. COUNTS INCLUDE 234 BEDS AT THE [facility] Medical History (Updated 05/03/23 @ 17:53 by Paula Clayton) Acute dyspnea Aftercare following surgery of the circulatory system Alcohol abuse Amputation toe CAD (coronary artery disease), [place] coronary artery CHF (congestive heart failure) Depression [...] 77.6 H, Lymph % (Auto) 13.6 L, Carroll % (Auto) 3.9, Eos % (Auto) 3.4, [...] is a 52-year-old female who presented to [facility] ED on 05/03/2023 with worsening [...] 55 minutes. Charges/Coding Visit Charges Inpatient E&M: 40061 Init Hosp L2 05/03/230 <Electronically signed by Lei Justin DO> Cosigner Signature (if applicable): CC: Dr. Lei Justin DO; [facility]~ Signed [facility] Work Phone: 1(755) 710-324811-30-2023 Discharge summary Author Ananda Coyle [facility] May 03, 2023 3:42pm Note Date/Time May 03, 2023 2:03pm [facility] Medical Records Department [address] [place] [address] Emergency Department Summary 05/03/23 MR#: [id number] Acct: [id number] Name: TRENTON JACKSON Rep #:[id number] : 1970 52 From: Ananda Coyle MD [facility] St atus:REG ER Location: ED [...] abuse Amputation toe CAD (coronary artery disease), [place] coronary artery CHF (congestive heart failure) Depression [...] CHF or pleural effusions. Differential would alsoinclude LA, anemia etc. Cardiac workup is underway. Repeat [...] 77.6 H Lymph % (Auto) 13.6 L Carroll % (Auto) 3.9 Eos % (Auto) 3.4 [...] rate of 97. No acute signs of LA or ischemia. Interventricular conduction delay. Discharge Plan [...] DAILY Qty: 90 3RF [facility]: [facility] [Primary Care Provider] - Disposition Disposition: Acute Care Hospital [facility] What to do if you have Problems For any increased pain, shortness of breath, bleeding, nausea or vomiting, chestpain, or any unexpected problems, contact your Primary Care Provider. Call [facility] ([phone]) or report to the closest Emergency Room. Call 911 if necessary. 05/03/231541 <Electronically signed by Ananda Coyle MD> Cosigner Signature (if applicable): CC: [facility] ~ Signed [facility] Work Phone: 1(308) 554-977711-30-2023 Discharge summary Author Ananda Coyle [facility] May 03, 2023 3:42pm Note Date/Time May 03, 2023 2:03pm [facility] Medical Records Department [address] [place] [address] Emergency Department Summary 05/03/23 MR#: [id number] Acct: [id number] Name: TRENTON JACKSON Rep #:[id number] : 1970 52 From: Ananda Coyle MD PCP: [facility] atus:REG ER Location: ED HPI History [...] abuse Amputation toe CAD (coronary artery disease), [place] coronary artery CHF (congestive heart failure) Depression [...] CHF or pleural effusions. Differential would alsoinclude LA, anemia etc. Cardiac workup is underway. Repeat [...] 77.6 H Lymph % (Auto) 13.6 L Carroll % (Auto) 3.9 Eos % (Auto) 3.4 [...] rate of 97. No acute signs of LA or ischemia. Interventricular conduction delay. Discharge Plan [...] 3RF Primary Care Provider: Nathaly Dickey Referrals: [facility] Nathaly Finney [Primary Care Provider] - Disposition Disposition: Acute Care Hospital [facility] What to do if you have Problems For any increased pain, shortness of breath, bleeding, nausea or vomiting, chestpain, or any unexpected problems, contact your Primary Care Provider. Call [facility] ([phone]) or report to the closest Emergency Room. Call 911 if necessary. 05/03/23 1542 <Electronically signed by Ananda Coyle MD> Nicoletteigner Signature (if applicable): CC: [facility] ~ Signed [facility] Work Phone: 1(173) 675-322609-02-2023 Discharge summary Author Sabina Rosenberg [facility] February 03, 2023 4:02pm Note Date/Time February 03, 2023 3:30pm [facility] Medical Records Department [address] [place] [address] Instructions for Home/Discharge Instructions 02/03/23 1530 MR#: [id number] Acct: [id number] Name: TRENTON JACKSON Rep #:[id number] : 1970 52 From: Sabina Rosenberg DO PCP: [facility] St atus:ADM REHAN Discharge Instructions Diet Discharge Diet: 1800 Calorie Control Diet Activity Weight Bearing Status: Full weight bearing Follow Up Care Test Results: Test results from this visit will be discussed in further detail at your follow- up appointment, if applicable. Discharge Plan Admission Admit Date/Time: 02/02/23 16:24 Primary Reason for Your Visit: CHF Attending Provider: Sabina Rosenberg [facility] Consulting Providers: Brandon Adames Discharge Orders/Prescriptions Prescriptions: [...] Qty: 30 0RF Referrals / Follow [facility]: [facility] [Primary Care Provider] - Within 2 Weeks Disposition Disposition (needs filled in before D/C Order can be placed): Home, Self Care 02/03/23 1602<Electronically signed by Sabina Rosenberg DO>Sabina Rosenberg DO CC: Dr. Brandon Adames MD; [facility] ~ Signed [facility] Work Phone: 1(688) [phone] History and physical note Author Brandon Adames [facility] February 02, 2023 5:56pm Note Date/Time February 02, 2023 5:08pm [facility] Medical Records Department [address] [place] [address] H&P Exam - Hospitalist 02/02/23 1627 MR#: [id number] Acct: [id number] Name: TRENTON JACKSON Rep #:[id number] : 1970 52 From: Brandon talavera MD PCP: [facility] atus:ADM REHAN Location: [place] [address] HPI - General General Date of Admission: [...] has been unable to follow-up with a director of knowledge management since that time but states that she has been taking her medications appropriately and watching her diet. She comes in today because she is also been having some shortness of breath, she did drop heroxygen down to 88% and is managing on 2 L nasal cannula. She did receive a doseof Lasix in the ER. COUNTS INCLUDE 234 BEDS AT [facility] Medical History Acute dyspnea Aftercare following surgery of the circulatory system Alcohol abuse CAD (coronary artery disease), [place] coronary artery CHF (congestive heart failure) Depression [...] 70.1 H, Lymph % (Auto) 18.4 L, Carroll % (Auto) 6.1, Eos % (Auto) 3.9, [...] with colleagues Charges/Coding Visit Charges Inpatient E&M: 73220 Init Hosp L3 02/02/23 0926 <Electronically signed by Brandon Adames MD> Cosigner Signature (if applicable): CC: Dr. Brandon Adames MD; [facility]~ Signed [facility] Work Phone: 1([phone]) 426-667709-01-2023 History and physical note Author Brandon Adames [facility] February 02, 2023 5:56pm Note Date/Time February 02, 2023 5:08pm [facility] Medical Records Department [address] [place] [address] H&P Exam - Hospitalist 02/02/23 1627 MR#: [id number] Acct: [id number] Name: TERNTON JACKSON Rep #:[id number] : 1970 52 From: Brandon talavera MD PCP: [facility] St atus:ADM REHAN Location: [address] 1 HPI - General General Date [...] has been unable to follow-up with a director of knowledge management since that time but states that she has been taking her medications appropriately and watching her diet. She comes in today because she is also been having some shortness of breath, she did drop heroxygen down to 88% and is managing on 2 L nasal cannula. She did receive a doseof Lasix in the ER. COUNTS INCLUDE 234 BEDS AT [facility] Medical History Acute dyspnea Aftercare following surgery of the circulatory system Alcohol abuse CAD (coronary artery disease), [place] coronary artery CHF (congestive heart failure) Depression [...] 70.1 H, Lymph % (Auto) 18.4 L, Carroll % (Auto) 6.1, Eos % (Auto) 3.9, [...] with colleagues Charges/Coding Visit Charges Inpatient E&M: 41178 Init Hosp L3 02/02/23 1756 <Electronically signed by Brandon Adames MD> Cosigner Signature (if applicable): CC: Dr. Brandon Adames MD; [facility]~ Signed [facility] Work Phone: 1(216) 420-580109-01-2023 Discharge summary Author Zack Card [facility] February 02, 2023 3:56pm Note Date/Time February 02, 2023 12:13pm [facility] Medical Records Department [address] [place] [address] Emergency Department Summary 02/02/23 MR#: [id number] Acct: [id number] Name: TRENTON JACKSON Rep #:[id number] : 1970 52 From: Zack Han PCP: [facility] St atus:REG ER Location: ED HPI [...] Positive for Prior DVT or PE [facility] Medical History Acute dyspnea Aftercare following surgery of the circulatory system Alcohol abuse CAD (coronary artery disease), [place] coronary artery CHF (congestive heart failure) Depression [...] clinician: Hospitalist This note was generated with [employer] dictation software. It may contain incorrectwords, spelling, [...] 70.1 H Lymph % (Auto) 18.4 L Carroll % (Auto) 6.1 Eos % (Auto) 3.9 [...] pleural effusion Disposition Disposition: Acute Care Hospital [facility] What to do if you have Problems For any increased pain, shortness of breath, bleeding, nausea or vomiting, chestpain, or any unexpected problems, contact your Primary Care Provider. Call [facility] ([phone]) or report to the closest Emergency Room. Call 911 if necessary. 02/02/23 6703 <Electronically signed by Zack Han> Cosigner Signature (if applicable): CC: [facility] ~ Signed [facility] Work Phone: 1(641) 207-725708-02-2023 Consult note Author Josse Garcia [facility] January 03, 2023 11:29am Note Date/Time January 03, 2023 11: 09am [facility] Medical Records Department [address] [place] [address] Counseling Note - Pharmacy 01/03/23 1106 MR#: [id number] Acct: [id number] Name: TRENTON JACKSON Rep #:[id number] : 1970 52 From: Josse Garcia PCP: [facility] St atus:ADM IN [facility] Pharm[facility] Service has performed discharge [...] Garcia on 01/03/23 at 1129 The case worker Paula is discussing with patient if they have adequate pen needles at home for their long-acting insulin, and will discuss with MD if more are needed. 01/03/23 1129 <Electronically signed by Josse osborne> Date _ Josse Garcia Signature (if applicable): Date cc: ~* Signed [facility] Work Phone: 1(467) 860-159908-02-2023 Discharge summary Author Sabina Rosenberg [facility] January 03, 2023 10:26am Note Date/Time January 03, 2023 10: 18am [facility] Medical Records Department [address] [place] [address] Instructions for Home/Discharge Instructions 01/03/23 1018 MR#: [id number] Acct: [id number] Name: TRENTON JACKSON Rep #:[id number] : 1970 52 From: Sabina Rosenberg DO PCP: [facility] atus:ADM IN Discharge Instructions Diet Discharge Diet: [...] Attending Provider: Sabina Rosenberg Primary Care Provider: [facility] Discharge Orders/Prescriptions Prescriptions: New lisinopril 20 [...] by Sabina Rosenberg DO>Sabina Rosenberg DO CC: [facility] ~ Signed [facility] Work Phone: 1(797) 746-603108-01-2023 Progress note Author Sabina Rosenberg [facility] January 02, 2023 5:29pm Note Date/Time January 02, 2023 5:3 0pm [facility] Medical Records Department [address] [place] [address] Progress Note - Hospitalist 01/02/23 1726 MR#: [id number] Acct: [id number] Name: TRENTON JACKSON Rep #:[id number] : 1970 52 From: Sabina Rosenberg DO PCP: [facility] atus:ADM IN Location: [place] [id number]- 1 Reason for Visit Reason for Visit: [...] that I would get an appointment at [facility] for the patient to follow-up with [...] with her physicians as directed, I contacted [facility] and they will make an appointment for the patient to follow-up for ongoing care. #3 cardiomyopathy, probably ischemic in nature-patient will need close follow- upwith a director of knowledge management after her discharge from the hospital, I [...] 50 minutes Charges/Coding Visit Charges Inpatient E&M: 23222 Subs Hosp L3 01/02/231728 <Electronically signed by Sabian Rosenberg DO> Cosigner Signature (if applicable): CC: ~ Signed [facility] Work Phone: 1(692) 413-224807-31-2023 History and physical note Author Sabina Rosenberg [facility] January 01, 2023 9:28pm Note Date/Time January 01, 2023 9:28 pm [facility] Medical Records Department [address] [place] [address] [place] [address] H&P Exam - Hospitalist 01/01/232112 MR#: [id number] Acct: [id number] Name: TRENTON JACKSON Rep #:[id number] : 1970 52 From: Sabina Rosenberg [facility] atus:ADM IN Location: [facility] AMD819- 1 HPI - General General Date of Admission: 01/01/23 Date of Service: 01/01/23 Chief Complaint: Shortness of breath, cough, chest pain on coughing and deep breathing HPI Narrative TRENTON JACKSON, is a 52 F who presents to the emergency room at [facility] with complaints of cough productive [...] [facility] [...] she feels causes her to be unwell. COUNTS INCLUDE 234 BEDS AT [facility] Medical History (Updated 01/01/23 @ 17:18 by Elisabeth Elizalde) Alcohol abuse CAD (coronary artery disease), [place] coronary artery CHF (congestive heart failure) Congestive [...] 75.1 H, Lymph % (Auto) 16.1 L, Carroll % (Auto) 5.0, Eos % (Auto) 2.7, [...] nature-patient will need close follow- upwith a director of knowledge management after her discharge from the hospital, I [...] 75 minutes Charges/Coding Visit Charges Inpatient E&M: 12066 Init Hosp L3 01/01/232127 <Electronically signed by Sabina Rosenberg DO> Cosigner Signature (if applicable): CC: Dr. Sabina Rosenberg, ; [facility]~ Signed [facility] Work Phone: 1(198) 220-378707-31-2023 Discharge summary Author Yvette Hanley [facility] January 01, 2023 4:35pm Note Date/Time January 01, 2023 1:15 pm [facility] Medical Records Department [address] [place] [address] Emergency Department Summary 01/01/23 MR#: [id number] Acct: [id number] Name: TRENTON JACKSON Rep #:[id number] : 1970 52 From: Yvette Hanley DO PCP: [facility] St atus:REG ER Location: ED HPI [...] to 3 days and has been taking Renetta[place] cold relief. Patient denies nausea or vomiting. [...] the knee down to the foot. [facility] Medical History CAD (coronary artery disease), [place] coronary artery CHF (congestive heart failure) GERD (gastroesophageal reflux disease) HTN (hypertension) Hx of fracture of humerus Hyperlipidemia Toe amputee Home Medications alendronate 70 mg tablet 70 mg PO BONE [facility] 07/25/22 [History Last Taken Unknown] cholecalciferol (vitamin [...] established on arrival. Patient placed on a cardiac nurse practitioner. EKG obtained on arrival showed sinus rhythm [...] 75.1 H Lymph % (Auto) 16.1 L Carroll % (Auto) 5.0 Eos % (Auto) 2.7 [...] Nausea) Qty: 10 0RF Primary Care Provider: [facility] Nathaly Finney [facility]: [facility] - Disposition Disposition: Acute Care Hospital [facility] What to do if you have Problems For any increased pain, shortness of breath, bleeding, nausea or vomiting, chestpain, or any unexpected problems, contact your Primary Care Provider. Call [facility] ([phone]) or report to the closest Emergency Room. Call 911 if necessary. 01/01/23 1635 <Electronically signed by Yvette Hanley DO> Cosigner Signature (if applicable): CC: [facility] ~ Signed [facility] Work Phone: 1(249) 449-551107-31-2023 Discharge summary Author [facility]vette [facility] January 01, 2023 4:35pm Note Date/Time January 01, 2023 1:15 pm [facility] Medical Records Department [address] [place] [address] Emergency Department Summary 01/01/23 MR#: [id number] Acct: [id number] Name: TRENTON JACKSON Rep #:[id number] : 1970 52 From: Yvette Hanley DO PCP: [facility] St atus:REG ER Location: ED HPI [...] to 3 days and has been taking [place] cold relief. Patient denies nausea or vomiting. [...] the knee down to the foot. [facility] Medical History CAD (coronary artery disease), [place] coronary artery CHF (congestive heart failure) GERD [...] established on arrival. Patient placed on a cardiac nurse practitioner. EKG obtained on arrival showed sinus rhythm [...] 75.1 H Lymph % (Auto) 16.1 L Carroll % (Auto) 5.0 Eos % (Auto) 2.7 [...] Nausea) Qty: 10 0RF [facility]: [facility] [Primary Care Provider] - Disposition Disposition: Acute Care Hospital [facility] What to do if you have Problems For any increased pain, shortness of breath, bleeding, nausea or vomiting, chestpain, or any unexpected problems, contact your Primary Care Provider. Call [facility] ([phone]) or report to the closest Emergency Room. Call 911 if necessary. 01/01/23 1635 <Electronically signed by Yvette Hanley DO> Cosigner Signature (if applicable): CC: [facility] ~ Signed [facility] Work Phone: 1(728) 678-864506-26-2023 Hospital Discharge instructions Additional Instructions Plenty of fluids such as water, prune juice and fruits, vegetables and fiber to help with constipation. GoLytely: Drink 6 to 8 ounce is every hour as needed and to have a bowel movement.[facility] Work Phone: [phone]) 739-521904-30-2023 Hospital Discharge instructions Additional Instructions Plenty of fluids such as water, prune juice and fruits, vegetables and fiber to help with constipation. GoLytely: Drink 6 to 8 ounce is every hour as needed and to have a bowel movement.[facility] Work Phone: 1([phone]) 564-885404-17-[address] Card [facility] September 18, 2022 6:48pm Note Date/Time September 18, 2022 2:3 5pm [facility] Medical Records Department [address] [place] [address] Emergency Department Summary 09/18/22 MR#: [id number] Acct: [id number] Name: TRENTON JACKSON Rep #:[id number] : 1970 52 From: Zack Han PCP: [facility] St atus:[facility] ER Location: ED HPI History of [...] PFSH Medical History CAD (coronary artery disease), [place] coronary artery CHF (congestive heart failure) GERD (gastroesophageal reflux disease) HTN (hypertension) Hx of fracture of humerus Hyperlipidemia Toe amputee Home Medications alendronate 70 mg tablet 70 mg PO [facility] 07/25/22 [History Last Taken Unknown] cholecalciferol [...] 74.8 H Lymph % (Auto) 18.4 L Carroll % (Auto) 5.3 Eos % (Auto) 0.7 [...] (Auto) Neut % (Auto) Lymph % (Auto) Carroll % (Auto) Eos % (Auto) Baso % [...] 18:41 EDT Reading Location ID and State: [facility] / [place] , Service support , Discharge Plan Triage [...] Nausea) Qty: 10 0RF [facility] Ref[facility] [Primary Care Provider] - 3-5 Days Activity Restrictions/Additional Instructions: Hip x-ray negative. Labs are stable. Follow-up with your doctor. Disposition Disposition: Home, Self Care What to do if you have Problems For any increased pain, shortness of breath, bleeding, nausea or vomiting, chestpain, or any unexpected problems, contact your Primary Care Provider. Call [facility] ([phone]) or report to the closest Emergency Room. Call 911 if necessary. 09/18/221847 <Electronically signed by Zack Han> Cosigner Signature (if applicable): CC: [facility] ~ Signed [facility] Work Phone: 1([phone]) 426-816604-01-[address] Forde [facility] September 02, 2022 11:17am Note Date/Time September 02, 2022 11:1 7am [facility] Medical Records Department [facility] [place] [address] [place] [address] Discharge Summary 09/02/22 1115 MR#: [id number] Acct: [id number] Name: TRENTON JACKSON Rep #:[id number] : 1970 52 From: Jeison Forde DPM PCP: [facility] atus:ADM IN Location: [place] [address] Providers Date of Admission: 08/30/22 Primary Care Physician: [facility] Consultations 08/30/22 17:15 Consult: Hospitalist Routine Consulting Provider: Sabina Rosenberg Reason for Consult: medical management/pre operative clearance EMERGENT Consult: No MD Notified: Yes Date Notified: 08/30/22 Time Notified: 17:55 Method of Notification: Verbal Consult: Onc/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.] Attending Provider: Jeison Forde [facility] Consult[facility] Providers: Sabina Rosenberg Instructions Additional [...] Cosigner Signature (if applicable): CC: ALEK Forde; [facility]~ Signed [facility] Work Phone: 1([phone]) 970-832304-01-[address] Rosenberg [facility] September 02, 2022 10:21am Note Date/Time September 02, 2022 10:2 1am [facility] Medical Records Department [address] [place] [address] Progress Note - Hospitalist 09/02/22 1018 MR#: [id number] Acct: [id number] Name: TRENTON JACKSON Rep #:[id number] : 1970 52 From: Sabina Rosenberg DO PCP: [facility] St atus:ADM IN Location: [address] Reason for Visit Reason for Visit: Diagnoses Type 2 diabetes mellitus without complications (08/30/22) Unspecified atherosclerosis of [place] arteries of extremities, unspecified extremity (08/30/22) Peripheral [...] 35 minutes Charges/Coding Visit Charges Inpatient E&M: 12247 Subs Hosp L2 09/02/22 1021 <Electronically signed by Sabina Rosenberg DO> Cosigner Signature (if applicable): CC: ~ Signed [facility] Work Phone: 1(911) 677-288704-01-[address] Forde [facility] September 02, 2022 10:20am Note Date/Time September 02, 2022 10:2 0am [facility] Medical Records Department [facility] [place] [address] [place] [address] Progress Note 09/02/22 1018 MR#: [id number] Acct: [id number] Name: TRENTON JACKSON Rep #:[id number] : 1970 52 From: Jeison Forde DPM PCP: [facility] atus:ADM IN Location: [place] EU880-9 Subjective Subjective Patient denies constitutional symptoms. pain [...] Cosigner Signature (if applicable): CC: ~ Signed [facility] Work Phone: 1([phone]) 854-951204-01-[address] Rosenberg [facility] September 02, 2022 10:18am Note Date/Time September 02, 2022 9:45 am [facility] Medical Records Department [address] [place] [address] Instructions for Home/Discharge Instructions 09/02/22 0941 MR#: [id number] Acct: [id number] Name: TRENTON JACKSON Rep #:[id number] : 1970 52 From: Sabina Rosenberg DO PCP: [facility] St atus:ADM IN Discharge Instructions Diet [...] Attending Provider: Jeison Forde [facility] Consulting Providers: Sabina Rosenberg Discharge Orders/Prescriptions [...] Rosenberg DO CC: Dr. Sabina Rosenberg, ; [facility] ~ Signed [facility] Work Phone: [phone]) 300-785803-31-[address] Rosenberg [facility] September 01, 2022 6:58pm Note Date/Time September 01, 2022 3:2 3pm [facility] Medical Records Department [address] [place] [address] Progress Note - Hospitalist 09/01/22 1518 MR#: [id number] Acct: [id number] Name: TRENTON JACKSON Rep #:[id number] : 1970 52 From: Sabina Rosenberg DO PCP: [facility] St atus:ADM IN Location: [place] [address] Reason for Visit Reason for Visit: Diagnoses Type 2 diabetes mellitus without complications (08/30/22) Unspecified atherosclerosis of [place] arteries of extremities, unspecified extremity (08/30/22) Peripheral [...] 35 minutes Charges/Coding Visit Charges Inpatient E&M: 96248 Subs Hosp L2 09/01/22 8630 <Electronically signed by Sabina Rosenberg DO> Cosigner Signature (if applicable): CC: ~ Signed [facility] Work Phone: 1(236) 765-229703-31-[address] Forde [facility] September 01, 2022 12:02pm Note Date/Time September 01, 2022 12: 02pm [facility] Medical Records Department [address] [place] [address] Progress Note 09/01/22 1200 MR#: [id number] Acct: [id number] Name: TRENTON JACKSON Rep #:[id number] : 1970 52 From: Jeison Forde DPM PCP: [facility] atus:ADM IN [facility] Subjective Subjective 52-year-old female 1 day postop [...] Cosigner Signature (if applicable): CC: ~ Signed [facility] Work Phone: 1([phone]) 723-535803-30-[address] Rosenberg [facility] August 31, 2022 5:17pm Note Date/Time August 31, 2022 4:5 9pm [facility] Medical Records Department [address] [place] [address] Progress Note - Hospitalist 08/31/22 1658 MR#: [id number] Acct: [id number] Name: TRENTON JACKSON Rep #:[id number] : 1970 52 From: Sabina Rosenberg DO PCP: [facility] atus:ADM IN Location: [place] [address]1 Reason for Visit Reason for Visit: Diagnoses [...] an outpatient, I called her primarycare office ([facility]) and talk to Lory who is [...] % (Auto) 64.6, Lymph % (Auto) 26.6, Carroll % (Auto) 6.5, Eos % (Auto) 1.3, [...] stated that she was sent to the [facility] for further evaluation and it [...] 35 minutes Charges/Coding Visit Charges Inpatient E&M: 08961 Subs Hosp L2 08/31/22 3757 <Electronically signed by Sabina Rosenberg DO> Cosigner Signature (if applicable): CC: ~ Signed [facility] Work Phone: [phone]) 486-781603-30-2023 Procedure [facility] 08-30-[address] Rosenberg [facility] August 30, 2022 8:00pm Note Date/Time August 30, 2022 7:5 0pm [facility] Medical Records Department [address] [place] [address] Progress Note - Hospitalist 08/30/221943 MR#: [id number] Acct: [id number] Name: TRENTON JACKSON Rep #:[id number] : 1970 52 From: Sabina Rosenberg DO [facility] atus:ADM IN Location: [place] TC759-9 Reason for Visit Reason for Visit: Diagnoses Peripheral vascular disease, unspecified (08/30/22) Cellulitis of right lower limb (08/30/22) Pain in right foot (08/30/22) Subjective Subjective Patient was seen and examined today at request of podiatry, she is a 35-alkp-lehfimmr female came to the ER today with complaints of pain and dry gangrene to the distal area of her right second toe. Patient's chronic medical problems include type 2 diabetes, peripheral vascular disease, essential hypertension, hyperlipidemia, GERD, and a history of congestive heart failure. Patient does not follow with a director of knowledge management, she is being seen by her PCP. [...] 77.4 H, Lymph % (Auto) 15.4 L, Carroll % (Auto) 5.9, Eos % (Auto) 0.5, [...] stated that she was sent to the [facility] for further evaluation and it [...] 50 minutes Charges/Coding Visit Charges Inpatient E&M: 54590 Subs Hosp L3 08/30/221999 <Electronically signed by Sabina Rosenberg DO> Cosigner Signature (if applicable): CC: ~ Signed [facility] Work Phone: 1(138) 270-253403-29-2023 History and physical note Author Dr. Forde [facility] August 30, 2022 4:09pm Note Date/Time August 30, 2022 4:0 9pm [facility] Medical Records Department [address] [place] [address] History & Physical Exam 08/30/22 1600 MR#: [id number] Acct: [id number] Name: TRENTON JACKSON Rep #:[id number] : 1970 52 From: Jeison Forde DPM PCP: [facility] St atus:REG ER Location: ED HPI [...] foot pain. Patient has no other complaints. COUNTS INCLUDE 234 BEDS AT [facility] Medical History CAD (coronary artery disease), [place] coronary artery CHF (congestive heart failure) GERD [...] 77.4 H, Lymph % (Auto) 15.4 L, Carroll % (Auto) 5.9, Eos % (Auto) 0.5, [...] Cosigner Signature (if applicable): CC: ALEK Forde; [facility]~ Signed [facility] Work Phone: 1([phone]) [phone] History and physical note Author Dr. Forde [facility] August 30, 2022 4:09pm Note Date/Time August 30, 2022 4:0 9pm [facility] Medical Records Department [address] [place] [address] History & Physical Exam 08/30/22 1600 MR#: [id number] Acct: [id number] Name: TRENTON JACKSON Rep #:[id number] : 1970 52 From: Jeison Forde DPM PCP: [facility] St atus:REG ER Location: ED HPI [...] foot pain. Patient has no other complaints. COUNTS INCLUDE 234 BEDS AT [facility] Medical History CAD (coronary artery disease), [place] coronary artery CHF (congestive heart failure) GERD [...] 77.4 H, Lymph % (Auto) 15.4 L, Carroll % (Auto) 5.9, Eos % (Auto) 0.5, [...] right foot: 08/30/22 1609 <Electronically signed by Jeisno Forde DPM> Cosigner Signature (if applicable): CC: ALEK Forde; [facility]~ Signed [facility] Work Phone: 1(100) 148-614303-29-[address] Rawls [facility] August 30, 2022 4:06pm Note Date/Time August 30, 2022 2:0 7pm [facility] Medical Records Department [address] [place] [address] Emergency Department Summary 08/30/22 MR#: [id number] Acct: [id number] Name: RTENTON JACKSON Rep #:[id number] : 1970 52 From: Jeremiah Rawls MD PCP: [facility] St atus:REG ER Location: ED HPI [...] other symptoms. Chief Complaint: Lower Extremity Injury [facility] Medical History CAD (coronary artery disease), [place] coronary artery CHF (congestive heart failure) GERD [...] 77.4 H Lymph % (Auto) 15.4 L [place] % (Auto) 5.9 Eos % (Auto) 0.5 [...] (Auto) Neut % (Auto) Lymph % (Auto) [place] % (Auto) Eos % (Auto) Baso % [...] EDT , Management Discussion w/another healthcare provider: Test Designer (Dr. Riccardo Ng with vascular surgery, Dr. [...] TID Qty: 30 0RF [facility]: [facility] [Primary Care Provider] - What to do if you have Problems For any increased pain, shortness of breath, bleeding, nausea or vomiting, chestpain, or any unexpected problems, contact your Primary Care Provider. Call [facility] ([phone]) or report to the closest Emergency Room. Call 911 if necessary. 08/30/22 1557 <Electronically signed by Jeremiah Rawls MD> Cosigner Signature (if applicable): CC: [facility] ~ Signed ADDENDUM by Dr. Jeremiah Rawls MD on 08/30/22 at 1606 EKG was obtained for presurgical testing by Dr. Forde. I interpreted the EKG as sinus tachycardia at 118 bpm without ectopy or acute ST changes. No STEMI. 08/30/22 1606<Electronically signed by Jeremiah Rawls MD> Cosigner Signature (if applicable): cc: [facility] ~* Signed [facility] Work Phone: 1(131) 742-495903-13-[address] Black [facility] August 14, 2022 4:44pm Note Date/Time August 14, 2022 2:3 8pm [facility] Medical Records Department [address] [place] [address] Emergency Department Summary 08/14/22 MR#: [id number] Acct: [id number] Name: TRENTON JACKSON Rep #:[id number] : 1970 51 From: Roberto Black MD [facility] atus:REG ER Location: ED HPI [...] this with poor vascular flow distally. [facility] Medical History CAD (coronary artery disease), [place] coronary artery CHF (congestive heart failure) GERD [...] 78.3 H Lymph % (Auto) 13.9 L [place] % (Auto) 5.8 Eos % (Auto) 0.8 [...] 81 mg PO DAILY [facility] Referrals: Riccardo Ng MD [Med Staff - Active Staff] - Keep Diandra appointment [facility]] - Disposition Disposition: Home, Self Care What to do if you have Problems For any increased pain, shortness of breath, bleeding, nausea or vomiting, chestpain, or any unexpected problems, contact your Primary Care Provider. Call [facility] ([phone]) or report to the closest Emergency Room. Call 911 if necessary. 08/14/22 1644 <Electronically signed by Roberto Black MD> Cosigner Signature (if applicable): CC: [facility] ~ Signed [facility] Work Phone: [phone]) 595-439703-09-2023 Procedure [facility] 07-25-[address] Mcneal [facility] July 25, 2022 11:38am Note Date/Time July 25, 2022 9:21am [facility] Medical Records Department [address] [place] [address] Emergency Department Summary 07/25/22 MR#: [id number] Acct: [id number] Name: TRENTON JACKSON Rep #:[id number] : 1970 51 From: Vidal Mcneal MD [...] She is denying any urinary symptoms. [facility] Medical History CAD (coronary artery disease), [place] coronary artery CHF (congestive heart failure) Diabetes [...] 78.2 H Lymph % (Auto) 13.7 L [place] % (Auto) 5.2 Eos % (Auto) 1.6 [...] rhythm with a rate of 115. Normal DC interval. QTc is 478. Nonspecific changes throughout, [...] your Primary Care Provider. Call [facility] ([phone]) or report to the closest Emergency Room. Call 911 if necessary. 07/25/22 1138 <Electronically signed by Vidal Mcneal MD> Cosigner Signature (if applicable): CC: Dr. 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 acute [facility] Work Phone: Evaluation note* Diagnosis [...] acidosis acute Peripheral vascular disease, unspecified acute [facility] Work Phone: Evaluation note* Diagnosis [...] acute Diabetes mellitus, type 2 ch ronic [facility] Work Phone: Evaluation note* Diagnosis [...] Foot pain, right resolved Lactic acidosis resolved [facility] Work Phone: Evaluation note* Diagnosis Onset Date Resolution Status Acute dyspnea acute Chest pain acute Hypoxemia acute Pericardial effusion acute Pleural effusion acute [facility] Work Phone: Evaluation note* Diagnosis Onset Date Resolution Status Chest pain resolved Pleural effusion resolved Bilateral pleural effusion a cute Chest pain acute Hypoxia acute Acute exacerbation of CHF (congestive heart failure) chronic [facility] Work Phone: Evaluation note* Diagnosis Onset Date Resolution Status Chest pain resolved Pleural effusion resolved Bilateral pleural effusion a cute Acute exacerbation of CHF (congestive heart failure) resolved Chest pain resolved Hypoxia resolved CAD (coronary artery disease), [place] coronary artery acute Essential hypertension acute Ischemic cardiomyopathy 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 manager yamil CAD (coronary artery disease), [place] coronary artery acute Essential hypertension acute Hypersomnolence acute Ischemic cardiomyopathy 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 manager yaiml [facility] Work Phone: Evaluation note* Diagnosis Onset Date Resolution Status Chest pain resolved Pleural effusion resolved Bilateral pleural effusion a cute Acute exacerbation of CHF (congestive heart failure) resolved Chest pain resolved Hypoxia resolved CAD (coronary artery disease), [place] coronary artery acute Essential hypertension acute Ischemic cardiomyopathy 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 manager yamil CAD (coronary artery disease), [place] coronary artery acute Essential hypertension acute Hypersomnolence acute Ischemic cardiomyopathy 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 manager yamil Epigastric pain acute GERD (gastroesophageal reflux disease) acute Acute dyspnea acute CHF (congestive heart failure) acute History of cardiomyopathy [place] History of coronary artery disease acute Hyperglycemia due to diabetes mellitus acute Hypoxia acute [facility] Work Phone: Evaluation note* Diagnosis Onset Date Resolution Status Bilateral pleural effusion a cute Acute exacerbation of CHF (congestive heart failure) resolved Chest pain resolved Hypoxia resolved CAD (coronary artery disease), [place] coronary artery acute Essential hypertension acute Ischemic cardiomyopathy 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 manager yamil CAD (coronary artery disease), [place] coronary artery acute Essential hypertension acute Hypersomnolence acute Ischemic cardiomyopathy 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 manager yamil Epigastric pain acute GERD (gastroesophageal reflux disease) acute Acute dyspnea acute CHF (congestive heart failure) acute History of cardiomyopathy [place] History of coronary artery disease acute Hyperglycemia due to diabetes mellitus acute Hypoxia acute [facility] Work Phone: Evaluation note* Diagnosis Onset Date Resolution Status CAD (coronary artery disease), [place] coronary artery acute Essential hypertension acute Ischemic cardiomyopathy 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 manager yamil CAD (coronary artery disease), [place] coronary artery acute Essential hypertension acute Hypersomnolence acute Ischemic cardiomyopathy 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 manager yamil Epigastric pain acute GERD (gastroesophageal reflux disease) acute Acute dyspnea acute CHF (congestive heart failure) acute History of cardiomyopathy [place] History of coronary artery disease acute Hyperglycemia due to diabetes mellitus acute Hypoxia acute Acute dyspnea acute Bilateral pleural effusion a cute CHF (congestive heart failure) acute Hypoxia acute [facility] Work Phone: Evaluation note* Diagnosis Onset Date Resolution Status Acute dyspnea acute History of cardiomyopathy [place] History of coronary artery disease acute Hyperglycemia due to diabetes mellitus acute Hypoxia resolved Acute dyspnea acute Bilateral pleural effusion a cute Hypoxia resolved [facility] Work Phone: Evaluation note* Diagnosis Onset Date Resolution Status Acute dyspnea acute Bilateral pleural effusion a cute Hypoxia resolved [facility] Work Phone: Evaluation note* Diagnosis [...] 2025 8:09pm Tobacco abuse acute January 8:09pm [facility] Work Phone: History and physical note Author Rosaura Crane [facility] Note Date/Time September 07, 2024 10:0 0pm [facility] Medical Records Department [address] [place] [address] H&P Exam - Hospitalist 09/07/242133 MR#: [id number] Acct: [id number] Name: TRENTON JACKSON Rep #:[id number] : 1970 54 From: Rosaura Crane MD PCP: RUTH Lawrence, MULTI CRAFT MAINTENANCE TECHNICIAN-C Statu s:ADM REHAN Location: [place] [address] HPI - General General Date of Admission: [...] which resolved who re- presents to the [facility] ED on 09/07/24 with history [...] not obtained upon requested evaluation of patient. COUNTS INCLUDE 234 BEDS AT THE [facility] Medical History L5 vertebral fracture ESBL [...] (congestive heart failure) CAD (coronary artery disease), [place] coronary artery Home Medications ?Medication ?Instructions ?Recorded [...] IN 1 - 2 pump subdermal Q6H DC N FOR 02/14/24 Unknown History saltsable FEET [...] % (Auto) Cancelled, Lymph % (Auto) Cancelled, [place] % (Auto) Cancelled, Eos % (Auto) Cancelled, [...] Drop Cells Cancelled, Ovalocytes Cancelled, Stomatocytes Cancelled, [place] Bodies Cancelled, [place]den Cells Cancelled, Bite Cells Cancelled, Crenated Cell [...] 77.8 H, Lymph % (Auto) 14.5 L, [place] % (Auto) 5.0, Eos % (Auto) 1.7, [...] MRI for further characterization. [facility] Assessment & Plan Assessment/Plan (1) Intractable [...] which resolved who re- presents to the [facility] ED on 09/07/24 with history [...] 16 minutes. Charges/Coding Visit Charges Inpatient E&M: 62565 Init Hosp L3 Procedures Hospitalists Procedures: 41824 Advncd Care Plan 30 Min 09/07/24 2200 <Electronically signed by Rosaura Craen MD> Cosigner Signature (if applicable): CC: C MULTI CRAFT MAINTENANCE TECHNICIAN-C Zohreh Mckeon; Dr. Rosaura Crane MD~ Signed [facility] Work Phone: Hospital Discharge instructions Additional Instructions Continue oral fluids. Zofran as needed. Take pain medicines as prescribed for your fracture. Future prescriptions for pain medicines need to be provided by your PCP or your specialist. Glucose is 402, normal gap, you are not in DKA. Take your medications at home. Follow-up with your doctor.[facility] Work Phone: Hospital Discharge instructions Additional Instructions Hip x-ray negative. Labs are stable. Follow-up with your doctor.[facility] Work Phone: Hospital Discharge instructions Additional Instructions I given you a month supply of gabapentin. You will take 300 mg twice a day for the first 3 days, then you may continue 300 mg 3 times a day for the remainder of the prescription. You need to follow-up with your PCP, I also gave you pain management.[facility] Work Phone: Hospital Discharge instructions [...] hip and knee pain. Follow-up if not improving.[facility] Work Phone: Hospital Discharge instructions Additional Instructions Continue your previous pain medications. Your postoperative wound does not appear to be acutely infected.[facility] Work Phone: Hospital Discharge instructions Additional Instructions Reviewed your MRI and patient recently. Stable L3 fracture, stable L5 fracture. Noted disc herniation L3-L4, this is likely culprit of your pain on your left leg. Continue your gabapentin 300 g 3 times a day as you have at home. supervisor mill your oxycodone that was written on discharge to take as needed. Use Zofran as needed. Follow-up with pain management and orthopedic spine for outpatient evaluation. Monitor your glucose with your insulin.[facility] Work Phone: Hospital Discharge instructions Additional Instructions Workup negative for DKA. continue toAvoid marijuana use. Use your nausea medicines as needed. Follow-up was given.[facility] Work Phone: Hospital Discharge instructionsAdditional Instructions You were given IV fluids and insulin to treat your high blood sugar. I think the pain you have in your legs is neuropathy. This means it is nerve pain. It is treated with medications like gabapentin. I recommend you talk to your prescribing doctor for further care. [facility] Work Phone: Reason for referral (narrative)* Consultation (Routine) - Pending Review Specialty Diagnoses / Procedures Referred By Contac t Referred To Contact Physical Therapy Diagnoses Closed 3-part fracture of proximal humerus, right, with routine healing, subsequent encounter Procedures DC OFFICE/OUTPATIENT NEW HIGH MDM 60-74 MINUTES Jerry Jones PA-C [address] [address] Referral ID Status Reason Start Date Expiration Date Visits Requested Visits Authorized [id number] Pending Review Specialty Services Required 06/08/2022 12/05/2022 99 99 [facility] for referral (narrative)No reason for referral [facility] Work Phone: Summary Purpose Family History [...] Will No March 27 10:33am Power of Regional Facilities Manager No March 27, 2022 10:33am Advance Directive Response Recorded Date/ Time Advance Directives No February 01, 2016 5:21am Living Will No April 17 022 4:47pm Power of Regional Facilities Manager No April 17, 2022 4:47pm Advance Directive Response Recorded Date/ Time Advance Directives No February 01, 2016 5:21am Living Will No April 18 022 3:36pm Power of Regional Facilities Manager No April 18, 2022 3:36pm Advance Directive Response Recorded Date/ Time Advance Directives No February 01, 2016 5:21am Living Will No May 09 9:47pm Power of Regional Facilities Manager No May 09, 2022 9:47pm Advance Directive Response Recorded Date/ Time Advance Directives No February 01, 2016 5:21am Living Will No May 19, 2 022 5:31pm Power of Regional Facilities Manager No May 19, 2022 5:31pm Advance Directive Response Recorded Date/ Time Advance Directives No February 01, 2016 5:21am Living Will No July 25, 2 023 9:18am Power of Regional Facilities Manager No July 25, 2022 9:18am Advance Directive Response Recorded Date/ Time Advance Directives No February 01, 2016 5:21am Living Will No August 03, 2022 12:21pm Power of Regional Facilities Manager No August 03 12:21pm Advance Directive Response Recorded Date/ Time Advance Directives No August 10 7:07am Living Will No August 10, 2022 7:07am Power of Regional Facilities Manager No August 10 7:07am Advance Directive Response Recorded Date/ Time Advance Directives No August 10 8:07am Living Will No August 14, 2022 1:53pm Power of Regional Facilities Manager No August 14 1:53pm Advance Directive Response Recorded Date/ Time Advance Directives No August 10 8:07am Living Will No August 30, 2022 4:44pm Power of Regional Facilities Manager No August 30 4:44pm Advance Directive Response Recorded Date/ Time Advance Directives No August 10 8:07am Living Will No September 05, 2022 12:31pm Power of Regional Facilities Manager No September 05 12:31pm Advance Directive Response Recorded Date/ Time Advance Directives No August 10 8:07am Living Will No September 09, 2022 7:25pm Power of Regional Facilities Manager No September 09 7:25pm Advance Directive Response Recorded Date/ Time Advance Directives No August 10 8:07am Living Will No September 11, 2022 3:01pm Power of Regional Facilities Manager No September 11 3:01pm Advance Directive Response Recorded Date/ Time Advance Directives No August 10 8:07am Living Will No September 18, 2022 2:32pm Power of Regional Facilities Manager No September 18 2:32pm Advance Directive Response Recorded Date/ Time Advance Directives No August 10 8:07am Living Will No October 01, 2022 11:14am Power of Regional Facilities Manager No October 01 11:14am Advance Directive Response Recorded Date/ Time Advance Directives No August 10 8:07am Living Will No January 01, 2023 12:13pm Power of Regional Facilities Manager No January 01 12:13pm Advance Directive Response Recorded Date/ Time Advance Directives No August 10 8:07am Living Will No January 01, 2023 5:09pm Power of Regional Facilities Manager No January 01 5:09pm Advance Directive Response Recorded Date/ Time Advance Directives No August 10 8:07am Living Will No February 02, 2 023 11:25am Power of Regional Facilities Manager No February 02, 2023 11:25am Advance Directive Response Recorded Date/ Time Advance Directives No August 10 8:07am Living Will No February 02, 2 023 8:41pm Power of Regional Facilities Manager No February 02, 2023 8:41pm Advance Directive Response Recorded Date/ Time Advance Directives No August 10 7:07am Living Will No February 02, 2 023 7:41pm Power of Regional Facilities Manager No February 02, 2023 7:41pm Advance Directive Response Recorded Date/ Time Advance Directives No August 10 7:07am Living Will No May 03, 2 023 1:37pm Power of Regional Facilities Manager No May 03, 2023 1:37pm Advance Directive Response Recorded Date/ Time Advance Directives No August 10 7:07am Living Will No May 03, 2 023 5:41pm Power of Regional Facilities Manager No May 03, 2023 5:41pm Advance Directive Response Recorded Date/ Time Advance Directives No August 10 7:07am Living Will No May 22, 2 023 2:33pm Power of Regional Facilities Manager No May 22, 2023 2:33pm Advance Directive Response Recorded Date/ Time Advance Directives No August 10 7:07am Living Will No June 13 3:00am Power of Regional Facilities Manager No June 13, 2023 3:00am Advance Directive Response Recorded Date/ Time Advance Directives No August 10 7:07am Living Will No June 19 9:35am Power of Regional Facilities Manager No June 19, 2023 9:35am Advance Directive Response Recorded Date/ Time Advance Directives No August 10 8:07am Living Will No September 02, 2023 7:42am Power of Regional Facilities Manager No September 01 7:42am Date Activated [...] October 15, 2023 5 :10pm Power of Regional Facilities Manager No October 15, 2023 5:10pm Advance Directive Response Recorded Date/ Time Living Will No April 25 024 5:40pm Do you have a Healthcare Power of Regional Facilities Manager? No April 25, 2024 5:40pm Living Will No June 29 10:04pm Do you have a Healthcare Power of Regional Facilities Manager? No June 29, 2024 10:04pm Living Will No August 26, 2024 10:15am Do you have a Healthcare Power of Regional Facilities Manager? No August 26, 2024 10:15am Living Will No August 01 025 2:53pm Do you have a Healthcare Power of Regional Facilities Manager? No August 01, 2024 2:53pm Advance Directives No August 10 8:07am Advance Directive Response Recorded Date/ Time Living Will No June 29 10:04pm Do you have a Healthcare Power of Regional Facilities Manager? No June 29, 2024 10:04pm Living Will No August 26, 2024 8:30pm Do you have a Healthcare Power of Regional Facilities Manager? No August 26, 2024 8:30pm Living Will No August 01 025 2:53pm Do you have a Healthcare Power of Regional Facilities Manager? No August 01, 2024 2:53pm Advance Directives No August 10 8:07am Advance Directive Response Recorded Date/ Time Living Will No June 29 10:04pm Do you have a Healthcare Power of Regional Facilities Manager? No June 29, 2024 10:04pm Living Will No August 26, 2024 8:30pm Do you have a Healthcare Power of Regional Facilities Manager? No August 26, 2024 8:30pm Living Will No August 01, 2 025 2:53pm Do you have a Healthcare Power of Regional Facilities Manager? No August 01, 2024 2:53pm Living Will No September 05, 2024 10:31am Do you have a Healthcare Power of Regional Facilities Manager? No September 05, 2024 10:31am Advance Directives No August 10 8:07am Advance Directive Response Recorded Date/ Time Living Will No June 29 10:04pm Do you have a Healthcare Power of Regional Facilities Manager? No June 29, 2024 10:04pm Living Will No August 26, 2024 8:30pm Do you have a Healthcare Power of Regional Facilities Manager? No August 26, 2024 8:30pm Living Will No September 07, 2024 3:55pm Do you have a Healthcare Power of Regional Facilities Manager? No September 07, 2024 3:55pm Living Will No August 01, 2 025 2:53pm Do you have a Healthcare Power of Regional Facilities Manager? No August 01, 2024 2:53pm Living Will No September 05, 2024 10:31am Do you have a Healthcare Power of Regional Facilities Manager? No September 05, 2024 10:31am Advance Directives No August 10 8:07am Advance Directive Response Recorded Date/ Time Living Will No June 29 10:04pm Do you have a Healthcare Power of Regional Facilities Manager? No June 29, 2024 10:04pm Living Will No August 26, 2024 8:30pm Do you have a Healthcare Power of Regional Facilities Manager? No August 26, 2024 8:30pm Living Will No September 07, 2024 10:21pm Do you have a Healthcare Power of Regional Facilities Manager? No September 07, 2024 10:21pm Living Will No August 01, 2 025 2:53pm Do you have a Healthcare Power of Regional Facilities Manager? No August 01, 2024 2:53pm Living Will No September 05, 2024 10:31am Do you have a Healthcare Power of Regional Facilities Manager? No September 05, 2024 10:31am Advance Directives No August 10 8:07am Advance Directive Response Recorded Date/ Time Living Will No June 29 10:04pm Do you have a Healthcare Power of Regional Facilities Manager? No June 29, 2024 10:04pm Living Will No August 26, 2024 8:30pm Do you have a Healthcare Power of Regional Facilities Manager? No August 26, 2024 8:30pm Living Will No September 07, 2024 10:21pm Do you have a Healthcare Power of Regional Facilities Manager? No September 07, 2024 10:21pm Living Will No September 21, 2024 12:25pm Do you have a Healthcare Power of Regional Facilities Manager? No September 21, 2024 12:25pm Living Will No August 01 2:53pm Do you have a Healthcare Power of Regional Facilities Manager? No August 01, 2024 2:53pm Living Will No September 05, 2024 10:31am Do you have a Healthcare Power of Regional Facilities Manager? No September 05, 2024 10:31am Advance Directives No August 10 8:07am Advance Directive Response Recorded Date/ Time Living Will No June 29 10:04pm Do you have a Healthcare Power of Regional Facilities Manager? No June 29, 2024 10:04pm Living Will No August 26, 2024 8:30pm Do you have a Healthcare Power of Regional Facilities Manager? No August 26, 2024 8:30pm Living Will No September 07, 2024 10:21pm Do you have a Healthcare Power of Regional Facilities Manager? No September 07, 2024 10:21pm Living Will No September 21, 2024 12:25pm Do you have a Healthcare Power of Regional Facilities Manager? No September 21, 2024 12:25pm Do you have a Healthcare Power of Regional Facilities Manager? No September 29, 2024 10:26am Living Will No August 01 2:53pm Do you have a Healthcare Power of Regional Facilities Manager? No August 01, 2024 2:53pm Living Will No September 05, 2024 10:31am Do you have a Healthcare Power of Regional Facilities Manager? No September 05, 2024 10:31am Advance Directives No August 10 8:07am Advance Directive Response Recorded Date/ Time Living Will No August 26, 2024 8:30pm Do you have a Healthcare Power of Regional Facilities Manager? No August 26, 2024 8:30pm Living Will No September 07, 2024 10:21pm Do you have a Healthcare Power of Regional Facilities Manager? No September 07, 2024 10:21pm Living Will No September 21, 2024 12:25pm Do you have a Healthcare Power of Regional Facilities Manager? No September 21, 2024 12:25pm Do you have a Healthcare Power of Regional Facilities Manager? No September 29, 2024 10:26am Living Will No September 05, 2024 10:31am Do you have a Healthcare Power of Regional Facilities Manager? No September 05, 2024 10:31am Do you have a Healthcare Power of Regional Facilities Manager? No December 12, 2024 4:18pm Advance Directives No August 10 8:07am Advance Directive Response Recorded Date/ Time Do you have a Healthcare Power of Regional Facilities Manager? No December 12, 2024 4:18pm Do you have a Healthcare Power of Regional Facilities Manager? No January 29, 2025 3:44pm Advance Directives No August 10 8:07am Advance Directive Response Recorded Date/ Time Do you have a Healthcare Power of Regional Facilities Manager? No December 12, 2024 4:18pm Do you have a Healthcare Power of Regional Facilities Manager? No January 29, 2025 9:51pm Advance Directives No August 10 8:07am Hospital Course Note HNO ID: [id number] Author: Paige Handy Service: Hospital Medicine Author [...] (more content not included)... Note HNO ID: [id number] Author: Rosi Morrow Service: Hospital Medicine Author [...] (more content not included)... Note HNO ID: [id number] Author: Maria Isabel Sherman Service: Clinical Cardiology [...] at Discharge: .Home Vital Signs: T [id number] [id number]% Date/Time09/29 11: 11: 11: 11: 11:35 Range(36.1C [...] not included)... Procedure Findings Note HNO ID: [id number] Author: Maria Isabel Sherman Service: Clinical Cardiology [...] Congestive heart failure Congestive heart failure EST ([facility]) 2 wk fu per MARINE ENGINE DRIVER G47.10 Reason for Visit Chest pain Pleural effusion Bilateral pleural effusion Acute exacerbation of CHF (congestive heart failure) Chest pain Hypoxia CAD (coronary artery disease), [place] coronary artery Essential hypertension Ischemic cardiomyopathy CAD (coronary artery disease), [place] coronary artery Essential hypertension Hypersomnolence Ischemic cardiomyopathy Chief Complaint CHF, PLEURITIC CHEST PAIN CHF, PLEURITIC CHEST PAIN CHF, PLEURITIC CHEST PAIN CHF, PLEURITIC CHEST PAIN CHF Congestive heart failure Congestive heart failure EST ([facility]) 2 wk fu per MARINE ENGINE DRIVER G47.10 Epigastric Pain/Recurrent Vomiting Reason for Visit Chest pain Pleural effusion Bilateral pleural effusion Acute exacerbation of CHF (congestive heart failure) Chest pain Hypoxia CAD (coronary artery disease), [place] coronary artery Essential hypertension Ischemic cardiomyopathy CAD (coronary artery disease), [place] coronary artery Essential hypertension Hypersomnolence Ischemic cardiomyopathy Chief Complaint CHF, PLEURITIC CHEST PAIN CHF, PLEURITIC CHEST PAIN CHF Congestive heart failure Congestive heart failure EST ([facility]) 2 wk fu per MARINE ENGINE DRIVER G47.10 Epigastric Pain/Recurrent Vomiting CHF EXACERBATION Reason for Visit Chest pain Pleural effusion Bilateral pleural effusion Acute exacerbation of CHF (congestive heart failure) Chest pain Hypoxia CAD (coronary artery disease), [place] coronary artery Essential hypertension Ischemic cardiomyopathy CAD (coronary artery disease), [place] coronary artery Essential hypertension Hypersomnolence Ischemic cardiomyopathy Epigastric pain GERD (gastroesophageal reflux disease) Acute dyspnea CHF (congestive heart failure) History of cardiomyopathy History of coronary artery disease Hyperglycemia due to diabetes mellitus Hypoxia Chief Complaint CHF Congestive heart failure Congestive heart failure EST ([facility]) 2 wk fu per MARINE ENGINE DRIVER G47.10 Epigastric Pain/Recurrent Vomiting CHF EXACERBATION CHF EXACERBATION CHF EXACERBATION CHF EXACERBATION CHF EXACERBATION CHF EXACERBATION CHF EXACERBATION CHF EXACERBATION Reason for Visit Bilateral pleural ef fusion Acute exacerbation of CHF (congestive heart failure) Chest pain Hypoxia CAD (coronary artery disease), [place] coronary artery Essential hypertension Ischemic cardiomyopathy CAD (coronary artery disease), [place] coronary artery Essential hypertension Hypersomnolence Ischemic cardiomyopathy Epigastric pain GERD (gastroesophageal reflux disease) Acute dyspnea CHF (congestive heart failure) History of cardiomyopathy History of coronary artery disease Hyperglycemia due to diabetes mellitus Hypoxia Chief Complaint CHF Congestive heart failure Congestive heart failure EST ([facility]) 2 wk fu per MARINE ENGINE DRIVER G47.10 Epigastric Pain/Recurrent Vomiting CHF EXACERBATION CHF EXACERBATION CHF EXACERBATION CHF EXACERBATION CHF EXACERBATION CHF EXACERBATION CHF EXACERBATION CHF EXACERBATION foot pain Reason for Visit Bilateral pleural ef fusion Acute exacerbation of CHF (congestive heart failure) Chest pain Hypoxia CAD (coronary artery disease), [place] coronary artery Essential hypertension Ischemic cardiomyopathy CAD (coronary artery disease), [place] coronary artery Essential hypertension Hypersomnolence Ischemic cardiomyopathy Epigastric pain GERD (gastroesophageal reflux disease) Acute dyspnea CHF (congestive heart failure) History of cardiomyopathy History of coronary artery disease Hyperglycemia due to diabetes mellitus Hypoxia Chief Complaint [facility] ([facility]) 2 wk fu per MARINE ENGINE DRIVER G47.10 Epigastric Pain/Recurrent Vomiting CHF EXACERBATION CHF EXACERBATION CHF EXACERBATION CHF EXACERBATION CHF EXACERBATION CHF EXACERBATION CHF EXACERBATION CHF EXACERBATION foot pain n/v ACUTE ON CHRONIC HFREF Reason for Visit CAD (coronary artery disease), [place] coronary artery Essential hypertension Ischemic cardiomyopathy CAD (coronary artery disease), [place] coronary artery Essential hypertension Hypersomnolence Ischemic cardiomyopathy Epigastric pain GERD (gastroesophageal reflux disease) Acute dyspnea CHF (congestive heart failure) History of cardiomyopathy History of coronary artery disease Hyperglycemia due to diabetes mellitus Hypoxia Acute dyspnea Bilateral pleural effusion CHF (congestive heart failure) Hypoxia Chief Complaint EST ([facility]) 2 wk fu per MARINE ENGINE DRIVER G47.10 Epigastric Pain/Recurrent Vomiting CHF EXACERBATION CHF EXACERBATION CHF EXACERBATION CHF EXACERBATION CHF EXACERBATION CHF EXACERBATION CHF EXACERBATION CHF EXACERBATION foot pain n/v ACUTE ON CHRONIC HFREF ACUTE ON CHRONIC HFREF ACUTE ON CHRONIC HFREF ACUTE ON CHRONIC HFREF ACUTE ON CHRONIC HFREF Reason for Visit CAD (coronary artery disease), [place] coronary artery Essential hypertension Ischemic cardiomyopathy CAD (coronary artery disease), [place] coronary artery Essential hypertension Hypersomnolence Ischemic cardiomyopathy Epigastric pain GERD (gastroesophageal reflux disease) Acute dyspnea CHF (congestive heart failure) History of cardiomyopathy History of coronary artery disease Hyperglycemia due to diabetes mellitus Hypoxia Acute dyspnea Bilateral pleural effusion CHF (congestive heart failure) Hypoxia Chief Complaint EST ([facility]) 2 wk fu per MARINE ENGINE DRIVER G47.10 Epigastric Pain/Recurrent Vomiting CHF EXACERBATION CHF EXACERBATION CHF EXACERBATION CHF EXACERBATION CHF EXACERBATION CHF EXACERBATION CHF EXACERBATION CHF EXACERBATION foot pain n/v ACUTE ON CHRONIC HFREF ACUTE ON CHRONIC HFREF ACUTE ON CHRONIC HFREF ACUTE ON CHRONIC HFREF ACUTE ON CHRONIC HFREF fall Reason for Visit CAD (coronary artery disease), [place] coronary artery Essential hypertension Ischemic cardiomyopathy CAD (coronary artery disease), [place] coronary artery Essential hypertension Hypersomnolence Ischemic cardiomyopathy [...] effusion Hypoxia Chief Complaint fall FALL LABWORK LONG-TERM LAB WORK LABWORK LABWORK LONG-TERM LAB WORK HIP PAIN Chief Complaint Admit [...] 2024 7:05am PERIPHERAL ARTERIAL CRITICAL STENOSIS [facility] [place] August 27, 2024 7:25am PERIPHERAL ARTERIAL CRITICAL STENOSIS [facility] [place] August 28, 2024 5:55pm PERIPHERAL ARTERIAL CRITICAL STENOSIS [place] [facility] August 29, 2024 9:45am PERIPHERAL [facility]ERIAL CRITICAL ST[facility] [place] [facility] August 30, 2024 3:28pm PERIPHERAL ARTERIAL CRITICAL STENOSIS [facility] [place] August 31, 2024 8:54am PERIPHERAL ARTERIAL CRITICAL STENOSIS [facility] [place] September 01, 2024 8:19am PERIPHERAL ARTERIAL CRITICAL [...] 01, 2024 1:45pm [facility] August 26, 2024 8:03pm [facility] August 27, 2024 7:05am [facility] August 27, 2024 7:25am [facility] August 28, 2024 5:55pm [facility] August 29, 2024 9:45am [facility] August 30, 2024 3:28pm [facility] August 31, 2024 8:54am [facility] September 01, 2024 8:19am [facility] September 02, 2024 7:51am n/v/d, [...] 27, 2024 7:25am [facility] August 28, 2024 5:55pm [facility] August 29, 2024 9:45am [facility] August 30, 2024 3:28pm [facility] August 31, 2024 8:54am [facility] September 01, 2024 8:19am [facility] September 02, 2024 7:51am n/v/d, [...] 2024 7:25am PERIPHERAL ARTERIAL CRITICAL STENOSIS [facility] [place] August 28, 2024 5:55pm PERIPHERAL [employer] CR[employer]ICAL [facility] August 29, 2024 9:45am PERIPHERAL ARTERIAL CRITICAL STENOSIS [facility] [place] August 30, 2024 3:28pm [facility]AL [facility] CRITICAL [facility] [place] [facility] August 31, 2024 8:54am PERIPHERAL ARTERIAL CRITICAL STENOSIS [facility] [place] September 01, 2024 8:19am PERIPHERAL ARTERIAL CRITICAL [...] 2024 5:55pm PERIPHERAL ARTERIAL CRITICAL STENOSIS [facility] [place] August 29, 2024 9:45am PERIPHERAL ARTERIAL CRITICAL [...] section and content) DATE CREATED AUTHOR 07/24/2018 [facility] DATE CREATED AUTHOR AUTHOR'S ORGANIZ ATION 04/08/2019 [facility] DATE CREATED AUTHOR AUTHOR'S ORGANIZ ATION 08/28/2019 [facility] DATE CREATED AUTHOR AUTHOR'S ORGANIZ ATION 06/09/2020 [facility] DATE CREATED AUTHOR AUTHOR'S ORGANIZ ATION 06/09/2020 [facility] DATE CREATED AUTHOR AUTHOR'S ORGANIZ ATION 08/17/2021 [facility] DATE CREATED AUTHOR AUTHOR'S ORGANIZ ATION 05/06/2022 [facility] DATE CREATED AUTHOR AUTHOR'S ORGANIZ ATION 09/07/2022 [facility] ([place] DATE CREATED AUTHOR AUTHOR'S ORGANIZ ATION 05/30/2024 [facility] DATE CREATED AUTHOR AUTHOR'S ORGANIZ ATION 07/07/2024 [facility] DATE CREATED AUTHOR AUTHOR'S ORGANIZ ATION 09/14/2024 [facility] DATE CREATED AUTHOR AUTHOR'S ORGANIZ ATION 04/16/2025 [facility] <item> Privacy Markings (unrecogniz ed section and [...] [place] Primary Care Provider Active Zohreh Mckeon MULTI CRAFT MAINTENANCE TECHNICIAN, MULTI CRAFT MAINTENANCE TECHNICIAN-C Attending Provider Active Team Status: Inactive Member Role Status Dates Dr. Nathaly Lainez Primary Care Provider Active Dr. Vidal Mcneal MD Emergency Provider Active Team Status: Inactive Member Role Status Dates Dr. Nathaly Lainez Primary Care Provider Active Dr. Riccardo Hillman DO Emergency Provider Active Team Status: Active Member Role Status Dates Dr. Uziel Conteh MD Family Provider Active [facility] Primary Care Provider A ctive Team Status: Inactive Member Role Status Dates Dr. Nathaly Lainez Primary Care Provider, Referring P rovider Active Vead SALAZAR, PA Attending Provider Active Team Status: Active Member Role Status Dates Dr. Riccardo Ng MD Attending Provider, Referring Provider, Other Provider Active [facility] Primary Care Provider A ctive Team [...] MD Attending Provider, Referring Pro vider Active [facility] Primary Care Provider A ctive Team Status: Inactive Member Role Status Dates [facility] Primary Care Provider A ctive Dr. Roberto Black MD Emergency Provider Active Team Status: Inactive Member Role Status Dates [facility] Primary Care Provider, Referring Provider Active MARTIN Sheldon Attending Provider Active Team Status: Active Member Role Status Dates [facility] Primary Care Provider A ctive Dr. Riccardo Ng MD Attending Provider Active Team Status: Inactive Member Role Status Dates Dr. Nathaly Lainez Primary Care Provider Active Dr. Ananda Coyle MD Attending Provider, Emergency Pro vider Active Team Status: Inactive Member Role Status MARTIN Sheldon Attending Provider, Referrin g Provider Active [facility] Primary Care Provider A ctive Team Status: Inactive Member Role Status Dates [facility] Primary Care Provider A ctive Dr. Roberto Black MD Attending Provider, Emergency Provider Active Team Status: Active Member Role Status Dates [facility] Primary Care Provider A ctchristianne Rawls MD Emergency Provider Active Dr. Jeison Forde DPM Admit Provider, Attending Pro vider Active Dr. Sabina Rosenberg DO Other Provider Active Team Status: Active Member Role Status Dates [facility] Primary Care Provider A ctive Jeremiah Rawls MD Emergency Provider Active Dr. Jeison Forde DPM Admit Provider, Other Provide r Active Dr. Sabina Rosenberg DO Attending Provider, Other Pro vider Active Team Status: Active Member Role Status Dates [facility] Primary Care Provider A ctive Dr. Sanjiv Alcantar MD Attending Provider Activ e Team Status: Inactive Member Role Status Dates [facility] Primary Care Provider A ctive Jeremiah Rawls MD Emergency Provider Active Dr. Jeison Forde , DPM Admit Provider, Attending Pro vider Active Dr. Sabina Rosenberg DO Other Provider Active Team Status: Active Member Role Status Dates [facility] Primary Care Provider A ctive Jeremiah Rawls MD Emergency Provider Active Dr. Jeison Forde , DPM Admit Provider, Referring Provider, Other Provider Active Dr. Sabina Rosenberg DO Attending Provider, Other Pro vider Active Team Status: Inactive Member Role Status Dates [facility] Primary Care Provider A ctive Dr. Yvette Hanley DO Emergency Provider Active Team Status: Active Member Role Status Dates [facility] Primary Care Provider A ctive Dr. Riccardo Ng MD Attending Provider Active MARTIN Sheldon Referring Provider Active Team Status: Active Member Role Status Dates [facility] Primary Care Provider A ctive Veda SALAZAR PA Attending Provider, Referrin g Provider Active Team Status: Inactive Member Role Status Dates [facility] Primary Care Provider A ctive Dr. Griselda Christina MD Emergency Provider Active Team Status: Inactive Member Role Status Dates [facility] Primary Care Provider A ctive MARTIN Sheldon Attending Provider, Referrin g Provider Active Team Status: Inactive Member Role Status [facility] Primary Care Provider A ctive Dr. Yvette Hanley DO Attending Provider, Emergency Pro vider Active Team Status: Inactive Member Role Status Dates [facility] Primary Care Provider A ctive Dr. Griselda Christina MD Attending Provider, Emergency Provider Active Team Status: Inactive Member Role Status Dates [facility] Primary Care Provider A ctive Dr. Zack Card DO Emergency Provider Active Team Status: Inactive Member Role Status [facility] Primary Care Provider A ctive Dr. Zack Card DO Attending Provider, Emergency Provide r Active Team Status: Inactive Member Role Status [facility] Primary Care Provider A ctive Dr. Ananda Coyle MD Referring Provider, Emergency Pro vider Active Team Status: Inactive Member Role Status Dates Dr. Serrato [facility] Primary Care Provider, Referring P rovider Active MARTIN Horn Attending Provider Active Team Status: Inactive Member Role Status Dates [facility] Primary Care Provider, Referring Provider Active MARTIN Horn Attending Provider Active Team Status: Active Member Role Status Dates [facility] Primary Care Provider A ctive Dr. Riccardo Ng MD Attending Provider Active MARTIN Horn Referring Provider Active Team Status: Active Member Role Status Dates [facility] Primary Care Provider A ctive Dr. Riccardo Ng MD Attending Provider Active Dr. Yvette Hanley DO Referring Provider Active Team Status: Inactive Member Role Status Dates MARTIN Horn Attending Provider, Referring Provider Active [facility] Primary Care Provider A ctive Team Status: Inactive Member Role Status Dates [facility] Primary Care Provider A ctive MARTIN Horn Attending Provider, Referring Provider Active Team Status: Inactive Member Role Status Dates [facility] Primary Care Provider A ctive Dr. Ananda Coyle MD Attending Provider, Referring Provider, Emergency Provider Active Team Status: Active Member Role Status Dates [facility] Primary Care Provider A ctive Dr. Yvette Hanley DO Emergency Provider Active Dr. Sabina Rosenberg DO Admit Provider, Attending Pro vider Active Team Status: Active Member Role Status [facility] Primary Care Provider A ctive Dr. Yvette Hanley DO Emergency Provider Active Dr. Sabina Rosenberg DO Admit Provider, Attending Provider, Other Provider Active Team Status: Inactive Member Role Status Dates [facility] Primary Care Provider A ctive Dr. Yvette Hanley DO Emergency Provider Active Dr. Sabina Rosenberg DO Admit Provider, Attending Pro vider Active Team Status: Active Member Role Status Dates [facility] Primary Care Provider A ctive Dr. Zack Card DO Emergency Provider Active Dr. Brandon Adames MD Admit Provi dianelys, Attending Provider, Other Provider Active Team Status: Active Member Role Status Dates [facility] Primary Care Provider A ctive Dr. Zack Card , DO Emergency Provider Active Dr. Brandon Adames MD Admit Provider, Attending Provider Active Team Status: Inactive Member Role Status Dates [facility] Primary Care Provider A ctive Dr. Zack Card DO Emergency Provider Active Dr. Brandon Adames MD Admit Provider, Other Pro vider Active Dr. Sabina Rosenberg DO Attending Provider Active Team Status: Inactive Member Role Status [facility] Primary Care Provider, Referring Provider Active Dr. Alli Brito MD Attending Provider Active Team Status: Active Member Role Status Dates [facility] Primary Care Provider A ctive Dr. Zack Card , Emergency Provider Active Dr. Brandon Adames MD Admit Provider, Other Pro vider Active Dr. Sabina Rosenberg DO Attending Provider, Other Pro vider Active Team Status: Inactive Member Role Status [facility] Primary Care Provider, Referring Provider Active Juancarlos Pandey MULTI CRAFT MAINTENANCE TECHNICIAN, MULTI CRAFT MAINTENANCE TECHNICIAN-C Attending Provider Active Team Status: Inactive Member Role Status [facility] Primary Care Provider A ctive Juancarlos Pandey MULTI CRAFT MAINTENANCE TECHNICIAN, MULTI CRAFT MAINTENANCE TECHNICIAN-C Attending Provider, Referring Pro vider Active Team Status: Inactive Member Role Status [facility] Primary Care Provider, Referring Provider Active Dr. Lino Sousa MD Attending Provider Active Team Status: Inactive Member Role Status [facility] Primary Care Provider A ctive Dr. Lino Sousa MD Attending Provider, Referr ing Provider Active Team Status: Active Member Role Status [facility] Primary Care Provider A ctive Dr. Ananda Coyle MD Emergency Provider Active Dr. Lei Justin DO Admit Provider, Attending Provider Active Team Status: Active Member Role Status [facility] Primary Care Provider A ctive Dr. Ananda Coyle MD Emergency Provider Active Dr. Lei Justin DO Admit Provider, Other Pro vider Active Dr. Alli Brito MD Attending Provider, Other Provide r Active Dr. Brenda Posadas MD Other Provider Active Team Status: Active Member Role Status Dates [facility] Primary Care Provider A ctive Dr. Ananda Coyle MD Emergency Provider Active Dr. Lei Justin DO Admit Provider, Other Pro vider Active Dr. Alli Brito MD Other Provider Active Dr. Brenda Posadas MD Attending Provider, Other Provid er Active Team Status: Active Member Role Status Dates [facility] Primary Care Provider A ctive Dr. Ananda Coyle MD Emergency Provider Active Dr. Lei Justin , DO Admit Provider, Other Pro vider Active Dr. Alli Brito MD Other Provider Active Dr. Latricia Aaron MD Attending Provider, Other Provid er Active Dr. Brenda Posadas MD Other Provider Active Team Status: Inactive Member Role Status [facility] Primary Care Provider A ctive Dr. Ananda Coyle MD Emergency Provider Active Dr. Lei Justin , DO Admit Provider, Other Pro vider Active Dr. Alli Brito MD Other Provider Active Dr. Latricia Aaron MD Attending Provider Active Dr. Brenda Posadas MD Other Provider Active Team Status: Active Member Role Status [facility] Primary Care Provider A ctive Dr. Ananda Coyle MD Emergency Provider Active Dr. Lei Justin , DO Admit Provi dianelys, Referring Provider, Other Provider Active Dr. Alli Brito MD Attending Provider, Other Provide r Active Dr. Brenda Posadas MD Other Provider Active Team Status: Inactive Member Role Status [facility] Primary Care Provider A ctive Dr. Derek Paniagua MD Emergency Provider Active Team Status: Inactive Member Role Status [facility] Primary Care Provider A ctive Dr. Derek Paniagua MD Attending Provider, Emergency Provi dianelys Active Team Status: Active Member Role Status [facility] Primary Care Provider A ctive Dr. Riccardo Hillman , DO Emergency Provider Active Dr. Talisha Boykin MD Admit Provider, Attending Prov ider Active Team Status: Inactive Member Role Status [facility] Primary Care Provider A ctive Dr. Ananda Coyle MD Attending Provider, Emergency Pro vider Active Team Status: Active Member Role Status [facility] Primary Care Provider A ctive Dr. Riccardo Hillman , DO Emergency Provider Active Dr. Talisha Boykin MD Admit Provider, Other Provider Active Dr. Jeremy Alexander MD Attending Provider, Other Provi dianelys Active Team Status: Active Member Role Status [facility] Primary Care Provider A ctive Dr. Riccardo Hillman , DO Emergency Provider Active Dr. Talisha Boykin MD Admit Provider, Other Provider Active Dr. Jeremy Alexander MD Attending Provider, Other Provi dianelys Active Dr. Moody Gallagher , DPM Other Provider Active Team Status: Inactive Member Role Status Dates [facility] Primary Care Provider A ctive Dr. Riccardo Hillman , DO Emergency Provider Active Dr. Talisha Boykin MD Admit Provider, Other Provider Active Dr. Jeremy Alexander MD Attending Provider Active Dr. Moody Gallagher , ALEK Other Provider Active Team Status: Active Member Role Status Dates [facility] Primary Care Provider A ctive Dr. Riccardo Hillman , DO Emergency Provider Active Dr. Talisha Boykin MD Admit Provider, Attending Provider, Other Provider Active Dr. Jeremy Alexander MD Other Provider Active Team Status: Active Member Role Status Dates [facility] Primary Care Provider A ctive Patient Link Program Attending Provider, Referring Pro vider Active Team Status: Inactive Member Role Status Dates [facility] Primary Care Provider A ctive Dr. Ananda Coyle MD Emergency Provider Active Master Tax Advisor Relationship Specialty Start Date End Date [facility] [address] [place] [address] PCP - General 09/02/23 Zohreh Mckeon NP [facility] [place] [address] Referring Family Medicine 10/18/22 Team Status: Inactive Member Role Status Dates [facility] Primary Care Provider A ctive Dr. Kaylie PEMBERTON MD Attending Provider Active Team Status: Active Member Role Status Dates [facility] Primary Care Provider A ctive Dr. Kaylie PEMBERTON MD Attending Provider Active Master Tax Advisor Relationship Specialty Start Date End Date [facility] [address] [place] [address] PCP - General 09/02/23 Zohreh Mckeon NP [facility] [place] [address] Referring Family Medicine 10/18/22 Team Status: Active Member Role Status Dates [facility] Primary Care Provider A ctive Dr. Kaylie PEMBERTON MD Attending Provider, Referring Provider Active Team Status: Inactive Member Role Status Dates [facility] Primary Care Provider A ctive Jeremiah Rawls MD Emergency Provider Active Master Tax Advisor Relationship Specialty Start Date [facility] [address] [facility] [place] [id number] PCP - General 09/02/23 Zohreh Mckeon NP [address] [facility] [place] [address] Referring Family Medicine 10/18/22 Master Tax Advisor Relationship Specialty Start Date End Date [facility] [address] [facility] [place] [address] PCP - General 09/02/23 Zohreh Mckeon NP [address] [facility] [place] [id number] Referring Family Medicine 10/18/22 Master Tax Advisor Relationship Specialty Start Date End Date [facility] [address] [facility] [place] [address] PCP - General 09/02/23 Zohreh Mckeon NP [address] [facility] [place] [address] Referring Family Medicine 10/18/22 Master Tax Advisor Relationship Specialty Start Date End Date [facility] [address] [facility] [place] [address] PCP - General 09/02/23 Zohreh Mckeon NP [address] [place] [id number] Referring Family Medicine 10/18/22 Master Tax Advisor Relationship Specialty Start Date End Date No, Pcp [address] [facility] [place] [address] PCP - General 05/02/22 Team Status: Active Member Role Status Dates Zohreh Mckeon VSC, MULTI CRAFT MAINTENANCE TECHNICIAN-C Primary Care Provider Activ e Team Status: Inactive Member Role Status Dates [facility] Primary Care Provider Active Start: April [...] Team Status: Active Member Role Status Dates [facility] Primary Care Provider Active Start: April [...] Team Status: Active Member Role Status Dates [facility] Primary Care Provider Active Start: April [...] Team Status: Inactive Member Role Status Dates [facility] Primary Care Provider A ctive Start: [...] Team Status: Active Member Role Status Dates [facility] Primary Care Provider A ctive Start: [...] Team Status: Active Member Role Status Dates [facility] Primary Care Provider A ctive Start: July 01, 2024 Dr. Davis Ibarra DO Emergency Provider Active Start: July 01, 2024 Dr. Bredna Posadas MD Admit Provider Active Star t: [...] Team Status: Active Member Role Status Dates [facility] Primary Care Provider A ctive Start: [...] Team Status: Active Member Role Status Dates [facility] Primary Care Provider A ctive Start: [...] Team Status: Inactive Member Role Status Dates [facility] Primary Care Provider A ctive Start: July 04, 2024 End: July 04, 2024 Dr. Nicole Trujillo DO Attending Provider Active S tart: July 04, 2024 End: July 04, 2024 Dr. Nicole Trujillo DO Referring Provider Active S tart: July 04, 2024 End: July 04, 2024 Team Status: Inactive Member Role Status Dates Dr. Nciole Trujillo DO Attending Provider Active S tart: July 05, 2024 End: July 05, 2024 Dr. Nicole Trujillo DO Referring Provider Active S tart: July 05, 2024 End: July 05, 2024 Zohreh MIRANDA, MULTI CRAFT MAINTENANCE TECHNICIAN-C Primary Care Provider Activ e Start: July 05, 2024 End: July 05, 2024 Team Status: Inactive Member Role Status Dates Dr. Nicole Trujillo DO Attending Provider Active S tart: July 06, 2024 End: July 06, 2024 Dr. Nicole Trujillo , Referring Provider Active S tart: July 06, 2024 End: July 06, 2024 Zohreh Mckeon RUTH, MULTI CRAFT MAINTENANCE TECHNICIAN-C Primary Care Provider Activ e Start: July 06, 2024 End: July 06, 2024 Team Status: Inactive Member Role Status Dates Dr. Nicole Trujillo DO Attending Provider Active S tart: July 07, 2024 End: July 07, 2024 Dr. Nicole Trujillo DO Referring Provider Active S tart: July 07, 2024 End: July 07, 2024 Zohreh Terence MIRANDA, MULTI CRAFT MAINTENANCE TECHNICIAN-C Primary Care Provider Activ e Start: July 07, 2024 End: July 07, 2024 Team Status: Inactive Member Role Status Dates Dr. Nicole Trujillo DO Attending Provider Active S tart: July 10, 2024 End: July 10, 2024 Dr. Nicole Trujillo DO Referring Provider Active S tart: July 10, 2024 End: July 10, 2024 Zohreh KINGGideon, MULTI CRAFT MAINTENANCE TECHNICIAN-C Primary Care Provider Activ e Start: July 10, 2024 End: July 10, 2024 Team Status: Inactive Member Role Status Dates Zohreh KINGC, MULTI CRAFT MAINTENANCE TECHNICIAN-C Primary Care Provider Activ e Start: July 11, 2024 End: July 11, 2024 Dr. Nicole Trujillo DO Attending Provider Active S tart: July 11, 2024 End: July 11, 2024 Dr. Nicole Trujillo DO Referring Provider Active S tart: July 11, 2024 End: July 11, 2024 Team Status: Inactive Member Role Status Dates Zohreh KINGC, MULTI CRAFT MAINTENANCE TECHNICIAN-C Primary Care Provider Activ e Start: August 01, 2024 End: August 01, 2024 Dr. Riccardo Hillman DO Attending Provider Active Start: August 01, 2024 End: August 01, 2024 Dr. Riccardo Hillman , Emergency Provider Active Start: August 01, 2024 End: August 01, 2024 Team Status: Active Member Role Status Dates Zohreh Terence MIRANDA, MULTI CRAFT MAINTENANCE TECHNICIAN-C Primary Care Provider Activ e Start: August 26, 2024 Dr. Riccardo Ng MD Attending Provider Active S tart: August 26, 2024 Team Status: Active Member Role Status Dates Zohreh Mckeon RUTH, MULTI CRAFT MAINTENANCE TECHNICIAN-C Primary Care Provider Activ e Start: August 26, 2024 Dr. Vaughn Daugherty DO Emergency Provider Activ e Start: August 26, 2024 Dr. Brenda Posadas MD Admit Provider Active Star t: August 26, 2024 Dr. Brenda Posadas MD Attending Provider Active Start: August 26, 2024 Team Status: Inactive Member Role Status Dates Zohreh MIRANDA, MULTI CRAFT MAINTENANCE TECHNICIAN-C Primary Care Provider Activ e Start: August [...] Active Member Role Status Dates Zohreh MIRANDA, MULTI CRAFT MAINTENANCE TECHNICIAN-C Primary Care Provider Activ e Start: August [...] Active Member Role Status Dates Zohreh MIRANDA, MULTI CRAFT MAINTENANCE TECHNICIAN-C Primary Care Provider Activ e Start: August [...] Active Member Role Status Dates Zohreh MIRANDA, MULTI CRAFT MAINTENANCE TECHNICIAN-C Primary Care Provider Activ e Start: August [...] Active Member Role Status Dates Zohreh MIRANDA, MULTI CRAFT MAINTENANCE TECHNICIAN-C Primary Care Provider Activ e Start: August [...] Active Member Role Status Dates Zohreh MIRANDA, MULTI CRAFT MAINTENANCE TECHNICIAN-C Primary Care Provider Activ e Start: August [...] Member Role Status Dates Zohreh Terence MIRANDA, MULTI CRAFT MAINTENANCE TECHNICIAN-C Primary Care Provider Activ e Start: August [...] Active Member Role Status Dates Zohrehdmitriy MIRANDA, MULTI CRAFT MAINTENANCE TECHNICIAN-C Primary Care Provider Activ e Start: September [...] Active Member Role Status Dates Zohrehdmitriy MIRANDA, MULTI CRAFT MAINTENANCE TECHNICIAN-C Primary Care Provider Activ e Start: September 01, 2024 Dr. Alli Brito MD Attending Provider Active S tart: September 01, 2024 Team Status: Active Member Role Status Dates Zohrehdmitriy KINGC, MULTI CRAFT MAINTENANCE TECHNICIAN-C Primary Care Provider Activ e Start: September [...] Active Member Role Status Dates Zohrehdmitriy KING, MULTI CRAFT MAINTENANCE TECHNICIAN-C Primary Care Provider Activ e Start: August 26, 2024 Dr. Riccardo Ng MD Attending Provider Active S tart: August 26, 2024 Dr. Jeison Abrams , Referring Provider Active Start: August 26, 2024 Team Status: Active Member Role Status Dates Zohreh Terence MIRANDA, MULTI CRAFT MAINTENANCE TECHNICIAN-C Primary Care Provider Activ e Start: August [...] Member Role Status Dates Zohreh Mckeon FERNANDO, MULTI CRAFT MAINTENANCE TECHNICIAN-C Primary Care Provider Activ e Start: September 05, 2024 End: September 05, 2024 Dr. Zack Card , Emergency Provider Active Start : September 05, 2024 End: September 05, 2024 Team Status: Active Member Role Status Dates Zohreh Terence KING, MULTI CRAFT MAINTENANCE TECHNICIAN-C Primary Care Provider Activ e Start: September [...] Member Role Status Dates Zohreh Mckeon RUTH, MULTI CRAFT MAINTENANCE TECHNICIAN-C Primary Care Provider Activ e Start: September 05, 2024 End: September 05, 2024 Dr. Zack Cadr DO Attending Provider Active Start : September 05, 2024 End: September 05, 2024 Dr. Zack Card DO Emergency Provider Active Start : September 05, 2024 End: September 05, 2024 Team Status: Active Member Role Status Dates Zohreh Mckeon RUTH, MULTI CRAFT MAINTENANCE TECHNICIAN-C Primary Care Provider Activ e Start: September [...] Member Role Status Dates Zohreh Terence MIRANDA, MULTI CRAFT MAINTENANCE TECHNICIAN-C Primary Care Provider Activ e Start: September [...] Member Role Status Dates Zohreh Mckeon RUTH, MULTI CRAFT MAINTENANCE TECHNICIAN-C Primary Care Provider Activ e Start: September [...] Active Member Role Status Dates Zohrehdmitriy MIRANDA, MULTI CRAFT MAINTENANCE TECHNICIAN-C Primary Care Provider Activ e Start: September [...] Active Member Role Status Dates Zohreh MIRANDA, MULTI CRAFT MAINTENANCE TECHNICIAN-C Primary Care Provider Activ e Start: September [...] Active Member Role Status Dates Zohreh MIRANDA, MULTI CRAFT MAINTENANCE TECHNICIAN-C Primary Care Provider Activ e Start: September [...] Active Member Role Status Dates Zohreh KING, MULTI CRAFT MAINTENANCE TECHNICIAN-C Primary Care Provider Activ e Start: September [...] Active Member Role Status Dates Zohreh MIRANDA, MULTI CRAFT MAINTENANCE TECHNICIAN-C Primary Care Provider Activ e Start: September [...] Active Member Role Status Dates Zohreh MIRANDA, MULTI CRAFT MAINTENANCE TECHNICIAN-C Primary Care Provider Activ e Start: September [...] Active Member Role Status Dates Zohreh MIRANDA, MULTI CRAFT MAINTENANCE TECHNICIAN-C Primary Care Provider Activ e Start: September [...] Inactive Member Role Status Dates Zohreh MIRANDA, MULTI CRAFT MAINTENANCE TECHNICIAN-C Primary Care Provider Activ e Start: September [...] Inactive Member Role Status Dates Zohreh MIRANDA, MULTI CRAFT MAINTENANCE TECHNICIAN-C Primary Care Provider Activ e Start: September 21, 2024 End: September 21, 2024 Dr. Riccardo Hillman DO Emergency Provider Active Start: September 21, 2024 End: September 21, 2024 Team Status: Inactive Member Role Status Dates Zohreh MIRANDA, MULTI CRAFT MAINTENANCE TECHNICIAN-C Primary Care Provider Activ e Start: September 21, 2024 End: September 21, 2024 Dr. Riccardo Hillman DO Attending Provider Active Start: September 21, 2024 End: September 21, 2024 Dr. Riccardo Hillman DO Emergency Provider Active Start: September 21, 2024 End: September 21, 2024 Team Status: Inactive Member Role Status Dates Zohreh MIRANDA, MULTI CRAFT MAINTENANCE TECHNICIAN-C Primary Care Provider Activ e Start: September 29, 2024 End: September 29, 2024 Dr. Zack Card , Emergency Provider Active Start : September 29, 2024 End: September 29, 2024 Team Status: Active Member Role/Relationship Status Dates Zohreh KINGC, MULTI CRAFT MAINTENANCE TECHNICIAN-C Primary Care Provider Activ e Team Status: Active Member Role/Relationship Status Dates Zohreh KINGC, MULTI CRAFT MAINTENANCE TECHNICIAN-C Primary Care Provider Activ e Start: August 26, 2024 Dr. Riccardo Ng MD Attending Provider Active S tart: August 26, 2024 Dr. Jeison Abrams DO Referring Provider Active Start: August 26, 2024 Team Status: Inactive Member Role/Relationship Status Dates Zohreh MIRANDA, MULTI CRAFT MAINTENANCE TECHNICIAN-C Primary Care Provider Activ e Start: August [...] Active Member Role/Relationship Status Dates Zohreh KINGC, MULTI CRAFT MAINTENANCE TECHNICIAN-C Primary Care Provider Activ e Start: August [...] Active Member Role/Relationship Status Dates Zohreh Mckeon [facility], MULTI CRAFT MAINTENANCE TECHNICIAN-C Primary Care Provider Activ e Start: August [...] Member Role/Relationship Status Dates Zohreh Mckeon FERNANDO, MULTI CRAFT MAINTENANCE TECHNICIAN-C Primary Care Provider Activ e Start: August [...] Active Member Role/Relationship Status Dates Zohreh Mckeon [facility], MULTI CRAFT MAINTENANCE TECHNICIAN-C Primary Care Provider Activ e Start: August [...] Member Role/Relationship Status Dates Zohreh Terence MIRANDA, MULTI CRAFT MAINTENANCE TECHNICIAN-C Primary Care Provider Activ e Start: August [...] Member Role/Relationship Status Dates Zohreh Terence MIRANDA, MULTI CRAFT MAINTENANCE TECHNICIAN-C Primary Care Provider Activ e Start: August [...] Active Member Role/Relationship Status Dates Zohrehdmitriy MIRANDA, MULTI CRAFT MAINTENANCE TECHNICIAN-C Primary Care Provider Activ e Start: September [...] Active Member Role/Relationship Status Dates Zohreh MIRANDA, MULTI CRAFT MAINTENANCE TECHNICIAN-C Primary Care Provider Activ e Start: September 01, 2024 Dr. Alli Brito MD Attending Provider Active S tart: September 01, 2024 Team Status: Active Member Role/Relationship Status Dates Zohreh KING, MULTI CRAFT MAINTENANCE TECHNICIAN-C Primary Care Provider Activ e Start: September [...] Inactive Member Role/Relationship Status Dates Zohreh KING, MULTI CRAFT MAINTENANCE TECHNICIAN-C Primary Care Provider Activ e Start: September 05, 2024 End: September 05, 2024 Dr. Zack Card DO Attending Provider Active Start : September 05, 2024 End: September 05, 2024 Dr. Zack Card DO Emergency Provider Active Start : September 05, 2024 End: September 05, 2024 Team Status: Active Member Role/Relationship Status Dates Zohreh KING, MULTI CRAFT MAINTENANCE TECHNICIAN-C Primary Care Provider Activ e Start: September [...] Active Member Role/Relationship Status Dates Zohreh KING, MULTI CRAFT MAINTENANCE TECHNICIAN-C Primary Care Provider Activ e Start: September [...] Member Role/Relationship Status Dates Zohreh Terence KING, MULTI CRAFT MAINTENANCE TECHNICIAN-C Primary Care Provider Activ e Start: September [...] Inactive Member Role/Relationship Status Dates Zohrehdmitriy MIRANDA, MULTI CRAFT MAINTENANCE TECHNICIAN-C Primary Care Provider Activ e Start: September [...] Active Member Role/Relationship Status Dates Zohrehdmitriy MIRANDA, MULTI CRAFT MAINTENANCE TECHNICIAN-C Primary Care Provider Activ e Start: September [...] Member Role/Relationship Status Dates Zohreh Terence MIRANDA, MULTI CRAFT MAINTENANCE TECHNICIAN-C Primary Care Provider Activ e Start: September [...] Member Role/Relationship Status Dates Zohreh Terence MIRANDA, MULTI CRAFT MAINTENANCE TECHNICIAN-C Primary Care Provider Activ e Start: September [...] Active Member Role/Relationship Status Dates Zohrehdmitriy MIRANDA, MULTI CRAFT MAINTENANCE TECHNICIAN-C Primary Care Provider Activ e Start: September [...] Member Role/Relationship Status Dates Zohreh Terence MIRANDA, MULTI CRAFT MAINTENANCE TECHNICIAN-C Primary Care Provider Activ e Start: September [...] Active Member Role/Relationship Status Dates Zohreh MIRANDA, MULTI CRAFT MAINTENANCE TECHNICIAN-C Primary Care Provider Activ e Start: September [...] Active Member Role/Relationship Status Dates Zohreh MIRANDA, MULTI CRAFT MAINTENANCE TECHNICIAN-C Primary Care Provider Activ e Start: September [...] Inactive Member Role/Relationship Status Dates Zohreh MIRANDA, MULTI CRAFT MAINTENANCE TECHNICIAN-C Primary Care Provider Activ e Start: September 21, 2024 End: September 21, 2024 Dr. Riccardo Hillman DO Attending Provider Active Start: September 21, 2024 End: September 21, 2024 Dr. Riccardo Hillman , Emergency Provider Active Start: September 21, 2024 End: September 21, 2024 Team Status: Inactive Member Role/Relationship Status Dates Zohreh KINGC, MULTI CRAFT MAINTENANCE TECHNICIAN-C Primary Care Provider Activ e Start: September 29, 2024 End: September 29, 2024 Dr. Zack Card DO Attending Provider Active Start : September 29, 2024 End: September 29, 2024 Dr. Zack Card , Emergency Provider Active Start : September 29, 2024 End: September 29, 2024 Team Status: Inactive Member Role/Relationship Status Dates Zohreh KINGC, MULTI CRAFT MAINTENANCE TECHNICIAN-C Primary Care Provider Activ e Start: December 12, 2024 End: December 12, 2024 Dr. eDrek Paniagua MD Referring Provider Active Sta rt: December 12, 2024 End: December 12, 2024 Dr. Derek Paniagua MD Emergency Provider Active Sta rt: December 12, 2024 End: December 12, 2024 Team Status: Inactive Member Role/Relationship Status Dates Zohreh Mckeon FERNANDOC, MULTI CRAFT MAINTENANCE TECHNICIAN-C Primary Care Provider Activ e Start: December [...] Active Member Role/Relationship Status Dates Zohreh KINGC, MULTI CRAFT MAINTENANCE TECHNICIAN-C Primary Care Provider Activ e Start: January 29, 2025 Dr. Martina Martínez DO Emergency Provider Active Start: January 29, 2025 Dr. Latricia Yao DO Admit Provider Active Start: January 29, 2025 Dr. Latricia Yao DO Attending Provider Active Start: January 29, 2025 Team Status: Active Member Role/Relationship Status Dates Zohreh KINGC, MULTI CRAFT MAINTENANCE TECHNICIAN-C Primary Care Provider Activ e Start: January [...] Member Role/Relationship Status Dates Zohreh Mckeon C, MULTI CRAFT MAINTENANCE TECHNICIAN-C Primary Care Provider Activ e Start: January [...] Member Role/Relationship Status Dates Zohreh Terence C, MULTI CRAFT MAINTENANCE TECHNICIAN-C Primary Care Provider Activ e Start: January [...] Inactive Member Role/Relationship Status Dates Zohreh Mckeon [facility], MULTI CRAFT MAINTENANCE TECHNICIAN-C Primary Care Provider Activ e Start: January [...] Active Member Role/Relationship Status Dates Zohreh KINGC, MULTI CRAFT MAINTENANCE TECHNICIAN-C Primary Care Provider Activ e Start: February [...] Active Member Role/Relationship Status Dates Zohreh MIRANDA, MULTI CRAFT MAINTENANCE TECHNICIAN-C Primary Care Provider Activ e Start: February [...] Active Member Role/Relationship Status Dates Zohreh MIRANDA, MULTI CRAFT MAINTENANCE TECHNICIAN-C Primary Care Provider Activ e Start: February [...] Active Member Role/Relationship Status Dates Zohreh MIRANDA, MULTI CRAFT MAINTENANCE TECHNICIAN-C Primary Care Provider Activ e Start: February [...] Active Member Role/Relationship Status Dates Zohreh MIRANDA, MULTI CRAFT MAINTENANCE TECHNICIAN-C Primary Care Provider Activ e Start: February 05, 2025 Dr. Mratina Martínez , DO Emergency Provider Active Start: [...] Active Member Role/Relationship Status Dates Zohreh MIRANDA, MULTI CRAFT MAINTENANCE TECHNICIAN-C Primary Care Provider Activ e Start: February [...] Active Member Role/Relationship Status Dates Zohreh MIRANDA, MULTI CRAFT MAINTENANCE TECHNICIAN-C Primary Care Provider Activ e Start: February [...] Active Member Role/Relationship Status Dates Zohreh MIRANDA, MULTI CRAFT MAINTENANCE TECHNICIAN-C Primary Care Provider Activ e Start: February [...] Active Member Role/Relationship Status Dates Zohreh MIRANDA, MULTI CRAFT MAINTENANCE TECHNICIAN-C Primary Care Provider Activ e Start: February [...] Member Role/Relationship Status Dates Zohreh Terence KING, MULTI CRAFT MAINTENANCE TECHNICIAN-C Primary Care Provider Activ e Start: February [...] Active Member Role/Relationship Status Dates Zohrehdmitriy KING, MULTI CRAFT MAINTENANCE TECHNICIAN-C Primary Care Provider Activ e Start: February [...] or prosecute any alcohol or drug abuse patient.[facility] the event this information is protected by the Federal Confidentiality of Alcohol and Drug Abuse Patient Records regulations: The Federal rules restrict any use of the information to criminally investigate or prosecute any alcohol or drug abuse patient.[facility] the event this information is protected by the Federal Confidentiality of Alcohol and Drug Abuse Patient Records regulations: The Federal rules restrict any use of the information to criminally investigate or prosecute any alcohol or drug abuse patient.[facility] the event this information is protected by the Federal Confidentiality of Alcohol and Drug Abuse Patient Records regulations: The Federal rules restrict any use of the information to criminally investigate or prosecute any alcohol or drug abuse patient.[facility] the event this information is protected by the Federal Confidentiality of Alcohol and Drug Abuse Patient Records regulations: The Federal rules restrict any use of the information to criminally investigate or prosecute any alcohol or drug abuse patient.[facility] the event this information is protected by the Federal Confidentiality of Alcohol and Drug Abuse Patient Records regulations: The Federal rules restrict any use of the information to criminally investigate or prosecute any alcohol or drug abuse patient.[facility] the event this information is protected by the Federal Confidentiality of Alcohol and Drug Abuse Patient Records regulations: The Federal rules restrict any use of the information to criminally investigate or prosecute any alcohol or drug abuse patient.[facility] the event this information is protected by the Federal Confidentiality of Alcohol and Drug Abuse Patient Records regulations: The Federal rules restrict any use of the information to criminally investigate or prosecute any alcohol or drug abuse patient.[facility] the event this information is protected by the Federal Confidentiality of Alcohol and Drug Abuse Patient Records regulations: The Federal rules restrict any use of the information to criminally investigate or prosecute any alcohol or drug abuse patient.[facility] the event this information is protected by the Federal Confidentiality of Alcohol and Drug Abuse Patient Records regulations: The Federal rules restrict any use of the information to criminally investigate or prosecute any alcohol or drug abuse patient.[facility] Reason for Visit (unrecogniz ed section and [...] BE BASED ON THE PRIMARY CLINICAL RECORDS. [facility] provides no warranty or guarantee of the accuracy or completeness of information in this document.
[2025-05-20 00:02] VITALS: BMI 29.5
[2025-05-20 00:12] VITALS: BP 140/71; PULSE 105; RESP 16; TEMP 36.6; O2SAT 98
[2025-05-20 00:56] LABS: Mucous, Urine 0 SEEN /hpf (<or=2+); Red Blood Cells-Urine 0 SEEN /hpf (0-5)
[2025-05-20 01:04] LABS: Color, Urine Yellow (Yellow); Glucose, Dipstick 1000 mg/dl (Normal); Ketone-Dipstick Negative (Negative); Leukocyte Esterase-Dipstick 500 /ul (Negative); Nitrite-Dipstick Negative (Negative); Occult Blood-Urine 50 /ul (Negative); Protein-Dipstick 100 mg/dl (Negative); Specific Gravity, Urine 1.015 (1.002-1.030); Urine Bilirubin Dipstick Negative (Negative)
[2025-05-20] MEDS: 0.9% Saline Lock 10 ML Syringe IV (01:04)
[2025-05-20 01:11] LABS: Squamous Epithelial Cells - UA 0-5 SEEN /hpf (5-10)
[2025-05-20 05:12] VITALS: BP 140/83; PULSE 96; RESP 16; TEMP 36.3; O2SAT 95
[2025-05-20 07:20] LABS: Hematocrit 31.5 % (37-47); Hemoglobin 10.5 g/dL (12.0-15.0); Immature Granulocytes Count 0.040 X10^3/uL (0.0-0.0); Mean Corp Hgb Conc 33.3 g/dL (32-36); Mean Corpuscular Volume 81.2 fL (81-99); Mean Platelet Vol. 9.2 fl (6.2-12.0); NRBC Flagged by Analyzer 0 % (0-5); Platelet Count 244 K/mm3 (150-450); RBC Distribution Width CV 12.5 % (11.6-14.6); RBC Distribution Width SD 36.8 fl (35.1-43.9); Red Blood Count 3.88 M/mm3 (4.2-5.4); White Blood Count 10.9 K/mm3 (4.4-11.0)
--- NOTE | 2025-05-20 07:31 | PN.HOSP_ITS ---
Objective Data Objective Data Vital Signs: Vital Signs Temp Pulse Resp BP Pulse Ox O2 Del Method O2 Flow Rate 97.4 F L 96 16 140/83 H 95 Nasal Cannula 2 05/20/25 05:12 05/20/25 05:12 05/20/25 05:12 05/20/25 05:12 05/20/25 05:12 05/20/25 05:12 05/20/25 05:12 Oxygen Flow Rate (L/min) 2 Oxygen Delivery Method Nasal Cannula Weight: 182 lb 12.211 oz Body Mass Index (BMI) 29.5 Intake & Output: Intake and Output for Last 24 Hours 05/18/25 05/19/25 05/20/25 23:59 23:59 23:59 Intake Total 500 / 500 200 / 200 Balance 500 / 500 200 / 200 Lab / Micro Data 05/20/25 06:35 05/20/25 06:35 Labs: Laboratory Results - last 24 hr 05/19/25 19:13: Sodium 128 L, Potassium 3.5, Chloride 94 L, Carbon Dioxide 18.7 L, Anion Gap 15, BUN 33 H, Creatinine 1.17, Estim Creat Clear Calc 61.33, Est GFR (MDRD) Non-Af 56 L, BUN/Creatinine Ratio 27.8 H, Glucose 482 H*, Lactic Acid 2.9 H*, Calcium 9.7, Total Bilirubin 1.04, AST 22, ALT 16, Alkaline Phosphatase 138 H, Total Protein 7.5, Albumin 4.0, Globulin 3.5, Albumin/Globulin Ratio 1.1, Lipase 69 05/19/25 19:35: WBC 10.8, RBC 3.69 L, Hgb 10.0 L, Hct 29.9 L, MCV 81.0, MCH 27.1, MCHC 33.4, RDW Std Deviation 36.7, RDW Coeff of Spencer 12.4, Plt Count 232, MPV 9.6, Immature Gran % (Auto) 0.400, Neut % (Auto) 81.0 H, Lymph % (Auto) 11.3 L, Atkinson % (Auto) 7.0, Eos % (Auto) 0.1, Baso % (Auto) 0.2, Absolute Neuts (auto) 8.8 H, Absolute Lymphs (auto) 1.22, Nucleated RBC % 0 05/19/25 21:50: Sodium 128 L, Potassium 3.6, Chloride 96 L, Carbon Dioxide 18.6 L, Anion Gap 13, BUN 32 H, Creatinine 1.02, Estim Creat Clear Calc 70.35, Est GFR (MDRD) Non-Af 66, BUN/Creatinine Ratio 31.3 H, Glucose 432 H, Calcium 9.2 05/19/25 22:09: Lactic Acid 1.9 05/19/25 23:19: POC Glucose 388 H 05/20/25 00:49: Urine Color Yellow, Urine Clarity Sl. Cloudy, Urine pH 6.0, Ur Specific [place] 1.015, Urine Protein 100 H, Urine Glucose (UA) 1000 H, Urine Ketones Negative, Urine Occult Blood 50 H, Urine Nitrite Negative, Urine Bilirubin Negative, Urine Urobilinogen Normal, Ur Leukocyte Esterase 500 H, Urine RBC 0 SEEN, Urine WBC 10-25 SEEN, Ur Squamous Epith Cells 0-5 SEEN, Urine Bacteria 3+, Urine Mucus 0 SEEN 05/20/25 01:07: POC Glucose 332 H 05/20/25 06:13: POC Glucose 148 H 05/20/25 06:35: WBC 10.9, RBC 3.88 L, Hgb 10.5 L, Hct 31.5 L, MCV 81.2, MCH 27.1, MCHC 33.3, RDW Std Deviation 36.8, RDW Coeff of Spencer 12.5, Plt Count 244, MPV 9.2, Immature Gran % (Auto) 0.400, Neut % (Auto) 75.3 H, Lymph % (Auto) 15.2 L, Atkinson % (Auto) 8.0, Eos % (Auto) 0.8, Baso % (Auto) 0.3, Absolute Neuts (auto) 8.2 H, Absolute Lymphs (auto) 1.66, Nucleated RBC % 0 ABG Data ABG results: ABG 05/19/25 19:43 Specimen Type LUPE Sample Site Not entered VBG pH 7.33 VBG pO2 27 VBG HCO3 20 L VBG Total CO2 22 L VBG O2 Sat (Calc) 46 L VBG Base Excess -6 L POC Mix VBG pCO2 Pt Tmp 38.8 L O2 Delivery Device Room Air Radiography Diagnostic Testing: Radiology Impression Abdomen/Pelvis CT 05/19/25 18:30 IMPRESSION: 1. No acute findings in the abdomen or pelvis. 2. Mild hepatomegaly and mild diffuse hepatic steatosis. 3. Redemonstrated cholecystectomy and appendectomy. 4. Stable bilateral adrenal nodules. 5. Redemonstrated compression deformities of L3, L4, and L5. Reading Location: [facility] Physical Exam Narrative Seen and examined Patient vomiting has resolved. Still nauseous had few bites at breakfast. Denies abdominal pain but had on admission. Diarrhea also better. Complaint was dark brown liquid in consistency without mucus. Physical exam General: Alert, Oriented x3, Cooperative. BMI 29.5 kg/m? HEENT: Atraumatic, PERRLA, EOMI, Normocephalic. Oral: No Gingival or Mucosal Lesions/ Ulcerations Neck: Supple, No JVD, Negative Carotid Bruits Chest wall/Lungs: Air entry diminished in bilateral lung bases. No crepitation/rhonchi Cardiovascular: Regular rate and rhythm, Normal S1,S2, No M/G/R Abdomen: Bowel Sounds Present, Soft, Non Tender, Non-Distended : No dysuria. No renal angle tenderness. No suprapubic tenderness. Extremities: No edema, Capillary Refill Less than 3 Seconds Skin: No rashes, No breakdown Musculoskeletal: No Tenderness to Palpation of Joints or Extremities. Chronic L5 and pubic rami fracture. Neurological: Cranial nerves II-XII grossly intact, DTR 2+/4. No acute focal neurological deficit. Psych/Mental Status: Flat affect Assessment & Plan Assessment/Plan (1) Gastroenteritis: PLAN: Plan 54-year-old female was admitted with nausea vomiting diarrhea and lower abdominal for 3 days, discharged from long-term 4 days ago. She is about from all medication except insulin. Patient also has chronic back pain from history of L5 vertebral fracture and fracture of pubic rami in the past 1. Acute gastroenteritis: Patient being admitted to the floor. Vomiting has resolved. Diarrhea better. CT abdomen/pelvis reviewed and does not show acute finding. Had cholecystectomy appendectomy in the past. Continue IV fluid. Symptomatic management. Stool for FOBT, lactoferrin, C. difficile and enteric pathogen panel ordered but not collected yet. Continue IV fluid. 2. Hyponatremia: Admitted with serum sodium 128, improved to 132. Serum potassium low normal 3.4. Anion gap 11, bicarb 21. Continue IV fluid normal saline with KCl 3. Chronic combined systolic and diastolic CHF last echo: 03/30/2025 with an EF of 20% with severe generalized hypokinesis and at least stage I diastolic dysfunction. Continue with her Coreg, Plavix, Entresto. On midodrine for low BP. On Jardiance for heart failure. 4. Essential hypertension:: Essentially, she has low BP therefore on midodrine. Most recent BP 130/63. Heart rate 92/min. Tachycardia on admission, resolved 5. Dyslipidemia: On atorvastatin 80 mg daily. Continue 6. Recent acute bilateral pulmonary embolisms: Patient was last admitted in March 2025 for acute hypoxic respiratory failure secondary to bilateral PE ? Currently not requiring any oxygen. Continue Eliquis EGD on 04/06/2025 that demonstrated moderately severe erosive esophagitis with no bleeding 7. GERD with moderately severe erosive esophagitis ? Continue with PPI DVT: Mahi Clinical Impression(s) from Imaging Studies Abdomen/Pelvis CT 05/19/25 18:30 IMPRESSION: 1. No acute findings in the abdomen or pelvis. 2. Mild hepatomegaly and mild diffuse hepatic steatosis. 3. Redemonstrated cholecystectomy and appendectomy. 4. Stable bilateral adrenal nodules. 5. Redemonstrated compression deformities of L3, L4, and L5. Reading Location: [facility] Charges/Coding Visit Charges Inpatient E&M: 00049 Subs Hosp L2
[2025-05-20 07:53] LABS: Anion Gap 11 (5-15); BUN 31 mg/dL (4-19); BUN/Creat Ratio 32.0 RATIO (10-20); Calcium,Total 9.3 mg/dL (7.6-11.0); Carbon Dioxide 21.0 mmol/L (21.0-32.0); Chloride 100 mmol/L (98-108); Estimated Creatinine Clearance 72.04 ml/min (50-250); Glucose 138 mg/dL (70-99); Potassium 3.4 mmol/L (3.3-5.1)
[2025-05-20] MEDS: SACUBITRIL/VALSARTAN 24/26 MG TABLET 1 EACH PO ×2 (09:18→22:56)
[2025-05-20] MEDS: APIXABAN 5 MG TABLET PO ×2 (09:19→22:55)
[2025-05-20 09:21] VITALS: BP 134/63; PULSE 92; RESP 16; TEMP 37; O2SAT 99
[2025-05-20] MEDS: KCL 40mEq in 0.9% NS 40 MEQ/1,000 ML IV.SOLN 75 MEQ IV (14:14)
[2025-05-20 15:00] VITALS: BP 104/58; PULSE 91; RESP 18; TEMP 36.8; O2SAT 96
--- NOTE | 2025-05-20 15:21 | CASEMGMT ---
Social Work- SW attempted to meet with pt; pt is still nauseous and declines to meet. Pt was laying in bed sleeping with emesis bag next to face. SW will attempt to meet at a later time. SANDRA Duncan
[2025-05-20 22:47] VITALS: BP 108/66; PULSE 93; RESP 16; TEMP 36.5; O2SAT 95
[2025-05-20] MEDS: Insulin Glargine-YFGN 100 UNIT/ML Pen 20 UNIT SC (22:51)
[2025-05-20] MEDS: Glucerna Shake 120 ML LIQUID PO (22:55)
[2025-05-20] MEDS: Lidocaine 5% Patch 1 PATCH TOPICAL (23:56)
[2025-05-21 03:15] VITALS: BP 106/54; PULSE 84; RESP 16; TEMP 36.7; O2SAT 94
[2025-05-21 05:08] LABS: Hematocrit 27.3 % (37-47); Hemoglobin 9.1 g/dL (12.0-15.0); Immature Granulocytes Count 0.050 X10^3/uL (0.0-0.0); Mean Corp Hgb Conc 33.3 g/dL (32-36); Mean Corpuscular Volume 83.7 fL (81-99); Mean Platelet Vol. 9.7 fl (6.2-12.0); NRBC Flagged by Analyzer 0 % (0-5); Platelet Count 213 K/mm3 (150-450); RBC Distribution Width CV 12.8 % (11.6-14.6); RBC Distribution Width SD 38.7 fl (35.1-43.9); Red Blood Count 3.26 M/mm3 (4.2-5.4); White Blood Count 9.8 K/mm3 (4.4-11.0)
[2025-05-21 05:41] LABS: Anion Gap 12 (5-15); BUN 37 mg/dL (4-19); BUN/Creat Ratio 31.4 RATIO (10-20); Calcium,Total 8.5 mg/dL (7.6-11.0); Carbon Dioxide 14.1 mmol/L (21.0-32.0); Chloride 102 mmol/L (98-108); Estimated Creatinine Clearance 59.33 ml/min (50-250); Glucose 166 mg/dL (70-99); Potassium 4.1 mmol/L (3.3-5.1)
[2025-05-21] MEDS: 0.9% Saline Lock 10 ML Syringe IV ×3 (06:43→16:54)
[2025-05-21 07:18] VITALS: O2SAT 94
[2025-05-21 08:58] VITALS: BP 110/96; PULSE 86; RESP 16; TEMP 36.6; O2SAT 98
[2025-05-21] MEDS: APIXABAN 5 MG TABLET PO ×2 (09:22→21:37)
[2025-05-21] MEDS: Glucerna Shake 120 ML LIQUID PO (09:23)
[2025-05-21] MEDS: SACUBITRIL/VALSARTAN 24/26 MG TABLET 1 EACH PO ×2 (09:24→21:37)
--- NOTE | 2025-05-21 09:59 | CASEMGMT ---
Addendum entered by Fallon Lee 05/21/25 14:40: KIKE spoke with [facility], who reports that he was unable to find an agency to provide HHC for pt at d/c. Blake reports pt stated she had 25/12 care and pt reported that it was not an issue to d/c without HHC. KIKE remains available to follow. SANDRA Duncan Addendum entered by Fallon Lee 05/21/25 10:19: Kike called Blake to verify HHC agency. SW left a voicemail. SANDRA Duncan Original Note: KIKE Assessment: Face to Face with pt for initial transition planning/care coordination assessment. KIKE introduced self and role at [facility], pt voices understanding and consents to assessment. Pt is A&O x4 and answers all questions appropriately at this time. Care providers, pharmacy, and demographics verified/updated. Admitting Dx: Gastroenteritis PCP: Terence Watts Pharmacy: [facility] Insurance: [employer] Prescription Benefit: yes LNOK: Ashlee- dtr, - mom Living Arrangements: Pt lives with dtr. There is a step to enter. Transportation: Pt dtr's boyfriend drives pt DME:Elevated toilet seat, wheelchair, walker, shower chair, oxygen through [facility] [place] at 2L HS. Pt reports having diabetic supplies. HHC/SNF: Reports that [facility] had set up HHC, but uncertain who it was through. Pt d/c from [facility] 05/16. Pt had been at [facility] 04/20- 05/16/25 and previously 02/11-03/27/25 Pt states she is open to home with HHC or return to [facility] at d/c. Awaiting therapy evals. Pt reports that her blood sugars were 500+ due to illness when admitted. Pt denies poor diet since return home. Pt reports that she was doing well- pivoting and able to transfer well to function at home. Pt reports that she feels if she had not gotten sick that she would not have any issues being at home. SW remains available to follow. SANDRA Duncan
[2025-05-21 14:58] VITALS: BP 114/67; PULSE 89; RESP 16; TEMP 36.5; O2SAT 100
[2025-05-21] MEDS: Lidocaine 5% Patch 1 PATCH TOPICAL (15:03)
--- NOTE | 2025-05-21 16:16 | CASEMGMT ---
KIKE met with pt following therapy. Pt reports that she would like to d/c home with [facility]. Pt liked working on the parallel bars at [facility] and feels it was extremely helpful to her rehab, but does not have transportation to therapy and reports that her insurance transportation is not easy to use. Therefore, pt would like HHC. Pt agreeable to mass referral being made to all local providers in her insurance network; pt declines a list as [facility] was unable to secure a [facility] prior to d/c due to difficulty with acceptance. KIKE notified [facility] of referral request. KIKE remains available to follow. SANDRA Duncan
--- NOTE | 2025-05-21 16:27 | PCM.PN.HOSP ---
Objective Data Objective Data Vital Signs: Vital Signs Temp Pulse Resp BP Pulse Ox O2 Del Method O2 Flow Rate 97.7 F L 89 16 114/67 100 Room Air 2 05/21/25 14:58 05/21/25 14:58 05/21/25 14:58 05/21/25 14:58 05/21/25 14:58 05/21/25 14:58 05/20/25 05:12 Oxygen Flow Rate (L/min) 2 Oxygen Delivery Method Room Air Weight: 182 lb 12.211 oz Body Mass Index (BMI) 29.5 Intake & Output: Intake and Output for Last 24 Hours 05/19/25 05/20/25 05/21/25 23:59 23:59 23:59 Intake Total 500 / 500 650 / 850 1350 / 1350 Output Total 300 / 300 Balance 500 / 500 350 / 550 1350 / 1350 Lab / Micro Data 05/21/25 04:40 05/21/25 04:40 Labs: Laboratory Results - last 24 hr 05/20/25 16:29: POC Glucose 131 H 05/20/25 22:49: POC Glucose 182 H 05/21/25 04:40: WBC 9.8, RBC 3.26 L, Hgb 9.1 L, Hct 27.3 L, MCV 83.7, MCH 27.9, MCHC 33.3, RDW Std Deviation 38.7, RDW Coeff of Spencer 12.8, Plt Count 213, MPV 9.7, Immature Gran % (Auto) 0.500, Neut % (Auto) 68.7, Lymph % (Auto) 21.6, Rich % (Auto) 7.7, Eos % (Auto) 0.9, Baso % (Auto) 0.6, Absolute Neuts (auto) 6.7, Absolute Lymphs (auto) 2.11, Nucleated RBC % 0, Sodium 128 L, Potassium 4.1, Chloride 102, Carbon Dioxide 14.1 L, Anion Gap 12, BUN 37 H, Creatinine 1.19, Estim Creat Clear Calc 59.33, Est GFR (MDRD) Non-Af 55 L, BUN/Creatinine Ratio 31.4 H, Glucose 166 H, Calcium 8.5 05/21/25 06:42: POC Glucose 201 H 05/21/25 11:24: POC Glucose 284 H Micro: Microbiology 05/20/25 23:50 Stool Enteric Bacteriology - Final 05/20/25 23:50 Stool Clostridioides difficile (PCR) - Final 05/20/25 23:50 Stool Stool Occult Blood ([facility]) - Final Occult Blood Positive 05/20/25 23:50 Stool Stool Lactoferrin - Final Physical Exam Narrative Seen and examined Patient vomiting has resolved. She can keep the food down. Diarrhea also better just 1 loose bowel movement yesterday. No abdominal pain. Complain of pain over right lumbosacral area. Physical exam General: Alert, Oriented x3, Cooperative. BMI 29.5 kg/m? HEENT: Atraumatic, PERRLA, EOMI, Normocephalic. Oral: No Gingival or Mucosal Lesions/ Ulcerations Neck: Supple, No JVD, Negative Carotid Bruits Chest wall/Lungs: Air entry diminished in bilateral lung bases. No crepitation/rhonchi Cardiovascular: Regular rate and rhythm, Normal S1,S2, No M/G/R Abdomen: Bowel Sounds Present, Soft, Non Tender, Non-Distended : No dysuria. No renal angle tenderness. No suprapubic tenderness. Extremities: No edema, Capillary Refill Less than 3 Seconds Skin: No rashes, No breakdown Musculoskeletal: No Tenderness to Palpation of Joints or Extremities. Spine: Chronic L5 and pubic rami fracture. Mild tenderness over right lumbar/sacral area Neurological: Cranial nerves II-XII grossly intact, DTR 2+/4. No acute focal neurological deficit. Psych/Mental Status: Flat affect Assessment & Plan Assessment/Plan (1) Gastroenteritis: PLAN: Plan 54-year-old female was admitted with nausea vomiting diarrhea and lower abdominal for 3 days, [facility]. She is about from all medication except insulin. Patient also has chronic back pain from history of L5 vertebral fracture and fracture of pubic rami in the past 1. Acute gastroenteritis: Patient being admitted to the floor. Vomiting has resolved. Diarrhea better. CT abdomen/pelvis reviewed and does not show acute finding. Had cholecystectomy appendectomy in the past. Continue IV fluid. Symptomatic management. Stool for FOBT, lactoferrin, C. difficile and enteric pathogen panel ordered but not collected yet. Continue IV fluid. 05/21: Stool for occult blood and lactoferrin are positive.Enteric bacterial panel and C. difficile are negative 2. Hyponatremia: Admitted with serum sodium 128, improved to 132. Serum potassium low normal 3.4. Anion gap 11, bicarb 21. Continue IV fluid normal saline with KCl 05/21: Serum sodium dropped to 128 for unclear reason. IV fluid normal saline ordered 3. Chronic combined systolic and diastolic CHF last echo: 03/30/2025 with an EF of 20% with severe generalized hypokinesis and at least stage I diastolic dysfunction. Continue with her Coreg, Plavix, Entresto. On midodrine for low BP. On Jardiance for heart failure. 4. Essential hypertension:: Essentially, she has low BP therefore on midodrine. Most recent BP 130/63. Heart rate 92/min. Tachycardia on admission, resolved 5. Dyslipidemia: On atorvastatin 80 mg daily. Continue 6. Recent acute bilateral pulmonary embolisms: Patient was last admitted in March 2025 for acute hypoxic respiratory failure secondary to bilateral PE ? Currently not requiring any oxygen. Continue Eliquis EGD on 04/06/2025 that demonstrated moderately severe erosive esophagitis with no bleeding 7. GERD with moderately severe erosive esophagitis ? Continue with PPI DVT: Eliquis. Clinical Impression(s) from Imaging Studies Abdomen/Pelvis CT 05/19/25 18:30 IMPRESSION: 1. No acute findings in the abdomen or pelvis. 2. Mild hepatomegaly and mild diffuse hepatic steatosis. 3. Redemonstrated cholecystectomy and appendectomy. 4. Stable bilateral adrenal nodules. 5. Redemonstrated compression deformities of L3, L4, and L5. Reading [facility] Charges/Coding Visit Charges Inpatient E&M: 91824 Subs Hosp L2
[2025-05-21] MEDS: 0.9% Normal Saline (1000mL) 1,000 ML 60 ML IV (16:58)
[2025-05-21 20:01] VITALS: BP 113/67; PULSE 89; RESP 15; TEMP 36.8; O2SAT 94
[2025-05-21] MEDS: Insulin Glargine-YFGN 100 UNIT/ML Pen 20 UNIT SC (21:35)
[2025-05-22 02:41] VITALS: BP 93/53; PULSE 84; RESP 15; TEMP 36.3; O2SAT 100
[2025-05-22 06:11] LABS: Hematocrit 26.9 % (37-47); Hemoglobin 8.9 g/dL (12.0-15.0); Immature Granulocytes Count 0.030 X10^3/uL (0.0-0.0); Mean Corp Hgb Conc 33.1 g/dL (32-36); Mean Corpuscular Volume 83.5 fL (81-99); Mean Platelet Vol. 9.8 fl (6.2-12.0); NRBC Flagged by Analyzer 0 % (0-5); Platelet Count 194 K/mm3 (150-450); RBC Distribution Width CV 12.8 % (11.6-14.6); RBC Distribution Width SD 38.9 fl (35.1-43.9); Red Blood Count 3.22 M/mm3 (4.2-5.4); White Blood Count 8.9 K/mm3 (4.4-11.0)
[2025-05-22 06:57] LABS: BUN 38 mg/dL (4-19); BUN/Creat Ratio 34.7 RATIO (10-20); Calcium,Total 8.4 mg/dL (7.6-11.0); Chloride 105 mmol/L (98-108); Estimated Creatinine Clearance 64.77 ml/min (50-250); Glucose 238 mg/dL (70-99); Potassium 4.3 mmol/L (3.3-5.1)
[2025-05-22 06:58] LABS: Anion Gap 10 (5-15); Carbon Dioxide 17.3 mmol/L (21.0-32.0)
[2025-05-22 07:34] VITALS: O2SAT 98
[2025-05-22 09:36] VITALS: BP 115/65; PULSE 83; RESP 16; TEMP 36.8; O2SAT 100
[2025-05-22] MEDS: APIXABAN 5 MG TABLET PO (09:38)
--- NOTE | 2025-05-22 10:18 | PCM.DC ---
Discharge Instructions DC O2, CPAP, BIPAP needs Home O2 Discharge instructions: No Dressing / Incision Discharge Activity: Return to Normal Activity Weight Bearing Status: Weight bearing as tolerated Dressing / Incision Call your doctor if you observe: Fever of 101 or Higher, Coldness, Increased Pain, Numbness or Tingling, Change in Color, Inability to urinate, Inability to have a bowel movement, Shortness of breath, Dizziness, Fainting spells, Swelling in the ankles, Chest pain, Prolonged hiccupping, Increased palpitations (irregular heartbeat) and Calf discomfort Follow Up Care When: IN 2 WEEKS Test Results: Test results from this visit will be discussed in further detail at your follow-up appointment, if applicable. Discharge Plan Admission Admit Date/Time: 05/21/25 14:58 Attending Provider: Jeremy Alexander Primary Care Provider: Zohreh Pratt [employer] Providers: Brandon Adames Discharge Orders/Prescriptions Prescriptions: New sucralfate 100 mg/mL suspension 1 g PO TID 30 Days Qty: 900 0RF Rx Instructions: 1 hour prior to meal Continued pantoprazole 40 mg tablet,delayed release (DR/EC) 40 mg PO DAILY clopidogrel 75 mg Tablet 75 mg PO DAILY Qty: 30 0RF Patient Comments: patient stated pretty sure I still take that sacubitril-valsartan [Entresto] 24-26 mg Tablet 1 tab PO BID 30 Days Qty: 60 0RF atorvastatin 80 mg tablet 80 mg PO QHS gabapentin 300 mg Capsule 300 mg PO TID tizanidine 4 mg tablet 4 mg PO TID midodrine 2.5 mg tablet 2.5 mg PO DAILY escitalopram oxalate 20 mg tablet 20 mg PO DAILY polyethylene glycol 3350 [Miralax] 17 gram/dose powder 17 g PO BID PRN (Reason: constipation) sennosides-docusate sodium [Stimulant Laxative Plus] 8.6-50 mg Tablet 2 tab PO BID Qty: 60 0RF metoclopramide HCl [Reglan] 10 mg tablet 10 mg PO Q6H PRN (Reason: nausea and vomiting) 5 Days Qty: 20 0RF Glucagon Emergency Kit (human) 1 mg recon soln 1 mg IM PRN Rx Instructions: until target blood sugar attained lidocaine 5 % adhesive patch,medicated 1 patch topical BID PRN (Reason: pain) ondansetron HCl 4 mg tablet 4 mg PO Q8H PRN (Reason: nausea and vomiting) carvedilol 6.25 mg Tablet 6.25 mg PO BID melatonin 3 mg Tablet 3 mg PO QHS PRN (Reason: Insomnia) acetaminophen 500 mg Tablet 1,000 mg PO Q8 Rx Instructions: NOT TO EXCEED 4G IN 24HRS 8A 2P 8P insulin lispro [Humalog KwikPen Insulin] 100 unit/mL Insulin Pen See Protocol subcut ACHS Protocol: 5. Sliding Scale Insulin High Dosing Condition: 150-209 mg/dl = 3 units Condition: 210-259 mg/dl = 6 units Condition: 260-324 mg/dl = 9 units Condition: 325-374 mg/dl = 12 units Condition: 375-409 mg/dl = 14 units Condition: 410-449 mg/dl = 16 units Condition: Greater than 449 call physician Protocol Text: Suggested for: - Patients on Total Daily Insulin Dose of 81-120 units - Very insulin resistant patients HIGH DOSING ALGORITHM Rx Instructions: subcutaneously before meals and at bedtime; insulin glargine-yfgn 100 unit/mL (3 mL) Insulin Pen 20 unit subcut QHS cholecalciferol (vitamin D3) 1,250 mcg (50,000 unit) tablet 1,250 mcg PO WE nystatin 100,000 unit/gram Powder 1 applic topical TID Qty: 0 0RF Protocol: *Topical Application Instructions APPLICATION INSTRUCTIONS: UNDER alok BREAST OXYGEN - Supplemental ([facility] INFORMATIONAL USE ONLY) Patient Comments: 2 LPM @ HS Rx Instructions: As Directed furosemide 40 mg Tablet 40 mg PO DAILY Qty: 30 2RF spironolactone 50 mg Tablet 50 mg PO DAILY Qty: 30 1RF Eliquis 5 mg Tablet 5 mg PO BID Qty: 60 2RF Jardiance 10 mg Tablet 10 mg PO DAILY Qty: 30 2RF Discontinued sennosides-docusate sodium [Stimulant Laxative Plus] 8.6-50 mg Tablet 2 tab PO BID PRN (Reason: constipation) Referrals / Follow Up: Bina Saldana PA [Med Staff - [facility], Gastroenterology] - Within 1 Month Referral Note: If patient is still has esophageal pain/odynophagia after swallowing Zohreh Pratt, [employer] [Primary Care Provider, Family Practice] Disposition Disposition (needs filled in before D/C Order can be placed): Home, Self Care
--- NOTE | 2025-05-22 10:25 | PCM.DC.SUM ---
Providers Date of Admission: 05/21/25 Date of Discharge: 05/22/25 Primary Care Physician: Zohreh Pratt [facility], [employer]ELOPER[employer] Reason For Visit: N/V/D Diagnosis Discharge Diagnosis (1) Gastroenteritis: Status: Acute Code(s): K52.9 - Noninfective gastroenteritis and colitis, unspecified Plan 54-year-old female was admitted with nausea vomiting diarrhea and lower abdominal for 3 days, discharged from assisted 4 days ago. She is about from all medication except insulin. Patient also has chronic back pain from history of L5 vertebral fracture and fracture of pubic rami in the past 1. Acute gastroenteritis: Patient being admitted to the floor. Vomiting has resolved. Diarrhea better. CT abdomen/pelvis reviewed and does not show acute finding. Had cholecystectomy appendectomy in the past. Continue IV fluid. Symptomatic management. Stool for FOBT, lactoferrin, C. difficile and enteric pathogen panel ordered but not collected yet. Continue IV fluid. 05/21: Stool for occult blood and lactoferrin are positive.Enteric bacterial panel and C. difficile are negative 05/22: Diarrhea is resolved. Patient complained of esophageal pain around midsternal area after swallowing. She said it started after she had vomiting. She finished her breakfast, Mohawk toast and scrambled eggs. No vomiting. Possible esophageal erosion after vomiting. Discussed with cattle sticker Dr. De Jesus and recommended Carafate 10 mL/1 g 3 times daily before meal. Prescription given for Carafate. If patient is still persistent symptoms can follow-up in GI office. Please see the recent EGD. 2. Hyponatremia: Admitted with serum sodium 128, improved to 132. Serum potassium low normal 3.4. Anion gap 11, bicarb 21. Continue IV fluid normal saline with KCl 05/21: Serum sodium dropped to 128 for unclear reason. IV fluid normal saline ordered 05/22 sodium 132 seems that is her baseline. 3. Chronic combined systolic and diastolic CHF last echo: 03/30/2025 with an EF of 20% with severe generalized hypokinesis and at least stage I diastolic dysfunction. Continue with her Coreg, Plavix, Entresto. On midodrine for low BP. On Jardiance for heart failure. 05/22 resume her medications as mentioned above. She is also on this med 40 mg daily and spironolactone 50 mg daily 4. Essential hypertension:: Essentially, she has low BP therefore on midodrine. Most recent BP 130/63. Heart rate 92/min. Tachycardia on admission, resolved 5. Dyslipidemia: On atorvastatin 80 mg daily. Continue 6. Recent acute bilateral pulmonary embolisms: Patient was last admitted in March 2025 for acute hypoxic respiratory failure secondary to bilateral PE ? Currently not requiring any oxygen. Continue Eliquis EGD on 04/06/2025 that demonstrated moderately severe erosive esophagitis with no bleeding. Benign-appearing esophageal stenosis dilated. Medium sized hiatus hernia. Chronic gastritis. No gross lesions in the entire examined duodenum. 7. GERD with moderately severe erosive esophagitis ? Continue with PPI DVT: Eliquis. Discharge medication reconciliation done. Discharge follow-up instructions completed. Discharge process discussed with the patient and all questions were answered to patient's satisfaction. Follow with PCP in 1 to 2 weeks Total time spent, exact 35 minutes on discharge meds reconciliation, examination, coordination of care with nurses and ancillary staff, review of imaging and blood test and discussion with the patient on follow-up instructions. Clinical Impression(s) from Imaging Studies Abdomen/Pelvis CT 05/19/25 18:30 IMPRESSION: 1. No acute findings in the abdomen or pelvis. 2. Mild hepatomegaly and mild diffuse hepatic steatosis. 3. Redemonstrated cholecystectomy and appendectomy. 4. Stable bilateral adrenal nodules. 5. Redemonstrated compression deformities of L3, L4, and L5. Reading Location: [facility] Medications at Discharge Home Medications clopidogrel 75 mg tablet 75 mg PO DAILY anti platelet #30 tabs 02/03/23 pantoprazole 40 mg tablet,delayed release 40 mg PO DAILY reflux 04/18/23 sacubitril 24 mg-valsartan 26 mg tablet (Entresto) 1 tab PO BID .bp 30 days #60 tabs 05/07/23 atorvastatin 80 mg tablet 80 mg PO QHS cholesterol 12/29/23 gabapentin 300 mg capsule 300 mg PO TID nerve pain 12/29/23 cholecalciferol (vitamin D3) 1,250 mcg (50,000 unit) tablet 1,250 mcg PO WE supplement 02/14/24 escitalopram oxalate 20 mg tablet 20 mg PO DAILY depression 06/29/24 midodrine 2.5 mg tablet 2.5 mg PO DAILY blood pressure 06/29/24 polyethylene glycol 3350 17 gram/dose oral powder (Miralax) 17 g PO BID PRN constipation 06/29/24 tizanidine 4 mg tablet 4 mg PO TID spasm 06/29/24 sennosides 8.6 mg-docusate sodium 50 mg tablet (Stimulant Laxative Plus) 2 tab PO BID #60 tabs 09/16/24 metoclopramide HCl 10 mg tablet (Reglan) 10 mg PO Q6H PRN nausea and vomiting 5 days #20 tabs 09/21/24 nystatin 100,000 unit/gram topical powder 1 applic topical TID #0 grams 02/11/25 OXYGEN - Supplemental ([facility] INFORMATIONAL USE ONLY) Pulmonary Information 04/01/25 apixaban 5 mg tablet (Eliquis) 5 mg PO BID #60 tabs 04/11/25 empagliflozin 10 mg tablet (Jardiance) 10 mg PO DAILY #30 tabs 04/11/25 furosemide 40 mg tablet 40 mg PO DAILY #30 tabs 04/11/25 spironolactone 50 mg tablet 50 mg PO DAILY #30 tabs 04/11/25 acetaminophen 500 mg tablet 1,000 mg PO Q8 PAIN 05/19/25 carvedilol 6.25 mg tablet 6.25 mg PO BID 05/19/25 glucagon 1 mg solution for injection (Glucagon Emergency Kit) 1 mg IM PRN HYPOGLYCEMIA 05/19/25 insulin glargine-yfgn 100 unit/mL (3 mL) subcutaneous pen 20 unit subcut QHS 05/19/25 insulin lispro 100 unit/mL subcutaneous pen (Humalog KwikPen (U-100) Insulin) See Protocol subcut ACHS 05/19/25 lidocaine 5 % topical patch 1 patch topical BID PRN pain 05/19/25 melatonin 3 mg tablet 3 mg PO QHS PRN Insomnia 05/19/25 ondansetron HCl 4 mg tablet 4 mg PO Q8H PRN nausea and vomiting 05/19/25 sucralfate 100 mg/mL oral suspension 1 g (10 mL) PO TID 1 month #900 mL 05/22/25 Physical Exam Narrative Seen and examined Complaining of mid thoracic esophageal pain after swallowing. Recent EGD explained to the patient on 04/06. Discussed with Dr. De Jesus. Jose ordered Physical exam General: Alert, Oriented x3, Cooperative. BMI 29.5 kg/m? HEENT: Atraumatic, PERRLA, EOMI, Normocephalic. Oral: No Gingival or Mucosal Lesions/ Ulcerations Neck: Supple, No JVD, Negative Carotid Bruits Chest wall/Lungs: Air entry diminished in bilateral lung bases. No crepitation/rhonchi Cardiovascular: Regular rate and rhythm, Normal S1,S2, No M/G/R Abdomen: Bowel Sounds Present, Soft, Non Tender, Non-Distended : No dysuria. No renal angle tenderness. No suprapubic tenderness. Extremities: No edema, Capillary Refill Less than 3 Seconds Skin: No rashes, No breakdown Musculoskeletal: No Tenderness to Palpation of Joints or Extremities. Spine: Chronic L5 and pubic rami fracture. Mild tenderness over right lumbar/sacral area. ROM restricted over L-spine Neurological: Cranial nerves II-XII grossly intact, DTR 2+/4. No acute focal neurological deficit. Psych/Mental Status: Flat affect Weight / BMI Weight Weight: 182 lb 12.211 oz Body Mass Index (BMI) 29.5 ABG / Lab / Microbiology Data 05/22/25 05:44 05/22/25 05:44 Laboratory: Laboratory Results - last 24 hr 05/21/25 11:24: POC Glucose 284 H 05/21/25 16:24: POC Glucose 174 H 05/21/25 21:32: POC Glucose 239 H 05/22/25 05:44: WBC 8.9, RBC 3.22 L, Hgb 8.9 L, Hct 26.9 L, MCV 83.5, MCH 27.6, MCHC 33.1, RDW Std Deviation 38.9, RDW Coeff of Spencer 12.8, Plt Count 194, MPV 9.8, Immature Gran % (Auto) 0.300, Neut % (Auto) 64.5, Lymph % (Auto) 24.9, Valley % (Auto) 8.1, Eos % (Auto) 1.6, Baso % (Auto) 0.6, Absolute Neuts (auto) 5.7, Absolute Lymphs (auto) 2.21, Nucleated RBC % 0, Sodium 132 L, Potassium 4.3, Chloride 105, Carbon Dioxide 17.3 L, Anion Gap 10, BUN 38 H, Creatinine 1.09, Estim Creat Clear Calc 64.77, Est GFR (MDRD) Non-Af 61, BUN/Creatinine Ratio 34.7 H, Glucose 238 H, Calcium 8.4 05/22/25 06:52: POC Glucose 266 H Microbiology: Microbiology 05/20/25 23:50 Stool Enteric Bacteriology - Final 05/20/25 23:50 Stool Clostridioides difficile (PCR) - Final 05/20/25 23:50 Stool Stool Occult Blood (CALLUM) - Final Occult Blood Positive 05/20/25 23:50 Stool Stool Lactoferrin - Final D/C Instructions Weight Bearing Status: Weight bearing as tolerated Call your doctor if you observe: Fever of 101 or Higher, Coldness, Increased Pain, Numbness or Tingling, Change in Color, Inability to urinate, Inability to have a bowel movement, Shortness of breath, Dizziness, Fainting spells, Swelling in the ankles, Chest pain, Prolonged hiccupping, Increased palpitations (irregular heartbeat) and Calf discomfort DC O2, CPAP, BIPAP Needs Home O2 Discharge instructions: No When: IN 2 WEEKS Meaningful Use Info Meaningful Use Meaningful Use Diagnoses (Choose all that apply): None applicable Discharge Plan Admission Admit Date/Time: 05/21/25 14:58 Attending Provider: Jeremy Alexander Primary Care Provider: Zohreh Pratt [facility] Consulting Providers: Brandon Adames Discharge Orders/Prescriptions Prescriptions: New sucralfate 100 mg/mL suspension 1 g PO TID 30 Days Qty: 900 0RF Rx Instructions: 1 hour prior to meal Continued pantoprazole 40 mg tablet,delayed release (DR/EC) 40 mg PO DAILY clopidogrel 75 mg Tablet 75 mg PO DAILY Qty: 30 0RF Patient Comments: patient stated pretty sure I still take that sacubitril-valsartan [Entresto] 24-26 mg Tablet 1 tab PO BID 30 Days Qty: 60 0RF atorvastatin 80 mg tablet 80 mg PO QHS gabapentin 300 mg Capsule 300 mg PO TID tizanidine 4 mg tablet 4 mg PO TID midodrine 2.5 mg tablet 2.5 mg PO DAILY escitalopram oxalate 20 mg tablet 20 mg PO DAILY polyethylene glycol 3350 [Miralax] 17 gram/dose powder 17 g PO BID PRN (Reason: constipation) sennosides-docusate sodium [Stimulant Laxative Plus] 8.6-50 mg Tablet 2 tab PO BID Qty: 60 0RF metoclopramide HCl [Reglan] 10 mg tablet 10 mg PO Q6H PRN (Reason: nausea and vomiting) 5 Days Qty: 20 0RF Glucagon Emergency Kit (human) 1 mg recon soln 1 mg IM PRN Rx Instructions: until target blood sugar attained lidocaine 5 % adhesive patch,medicated 1 patch topical BID PRN (Reason: pain) ondansetron HCl 4 mg tablet 4 mg PO Q8H PRN (Reason: nausea and vomiting) carvedilol 6.25 mg Tablet 6.25 mg PO BID melatonin 3 mg Tablet 3 mg PO QHS PRN (Reason: Insomnia) acetaminophen 500 mg Tablet 1,000 mg PO Q8 Rx Instructions: NOT TO EXCEED 4G IN 24HRS 8A 2P 8P insulin lispro [Humalog KwikPen Insulin] 100 unit/mL Insulin Pen See Protocol subcut [facility] Protocol: 5. Sliding Scale Insulin High Dosing Condition: 150-209 mg/dl = 3 units Condition: 210-259 mg/dl = 6 units Condition: 260-324 mg/dl = 9 units Condition: 325-374 mg/dl = 12 units Condition: 375-409 mg/dl = 14 units Condition: 410-449 mg/dl = 16 units Condition: Greater than 449 call physician Protocol Text: Suggested for: - Patients on Total Daily Insulin Dose of 81-120 units - Very insulin resistant patients HIGH DOSING ALGORITHM Rx Instructions: subcutaneously before meals and at bedtime; insulin glargine-yfgn 100 unit/mL (3 mL) Insulin Pen 20 unit subcut QHS cholecalciferol (vitamin D3) 1,250 mcg (50,000 unit) tablet 1,250 mcg PO WE nystatin 100,000 unit/gram Powder 1 applic topical TID Qty: 0 0RF Protocol: *Topical Application Instructions APPLICATION INSTRUCTIONS: UNDER alok BREAST OXYGEN - Supplemental ([facility] INFORMATIONAL USE ONLY) Patient Comments: 2 LPM @ HS Rx Instructions: As Directed furosemide 40 mg Tablet 40 mg PO DAILY Qty: 30 2RF spironolactone 50 mg Tablet 50 mg PO DAILY Qty: 30 1RF Eliquis 5 mg Tablet 5 mg PO BID Qty: 60 2RF Jardiance 10 mg Tablet 10 mg PO DAILY Qty: 30 2RF Discontinued sennosides-docusate sodium [Stimulant Laxative Plus] 8.6-50 mg Tablet 2 tab PO BID PRN (Reason: constipation) Referrals / Follow Up: Bina Saldana PA [Med Staff - [facility], Gastroenterology] - Within 1 Month Referral Note: If patient is still has esophageal pain/odynophagia after swallowing Zohreh Pratt, [employer]STRU[employer]URE DEVELOPER[employer] [Primary Care Provider[place] [facility] Disposition Disposition (needs filled in before D/C Order can be placed): Home, Self Care Charges/Coding Visit Charges Inpatient E&M: 05586 Disch Hosp >30min
--- NOTE | 2025-05-22 10:56 | CASEMGMT ---
CHAYITO BARKLEY NOTE: Referral made w/[facility] @ [facility]. They are able to accept pt w/SOC slated for Sunday. This was added to CM dc intervention. Per [facility], pt has cancelled appts w/them in the past and she is requesting pt be made aware of importance of keeping appts w/C. KIKE Lehman, to discuss this w/pt. Bhupendra HAWKINS RN CM
--- NOTE | 2025-05-22 11:04 | CASEMGMT ---
Addendum entered by Fallon Lee 05/22/25 12:31: SW followed up with pt to ensure that pt and pt dtr are aware that pt is d/c and must leave today, as pt had made comments insinuating she would want to stay one more night or find a reason to stay. SW expressed that if pt is uncertain of leaving later, then SW would need to schedule transport this afternoon. Pt on phone with dtr and verified plans to transport. SANDRA Duncan Original Note: Social Work- SW met with pt to update on [facility] acceptance of referral. SW stressed the importance of keeping SOC on Sunday. SW cautioned that if pt cancels appointments, they may not be willing to accept in the future. SW informed pt that [facility] was not able to find an agency to accept due to non-compliance, so it is important to maintain appointments. Pt agreeable. Pt reports that her dtr is not able to transport until 7PM; pt not agreeable to other transport. SW notified hospitalist and bedside nurse. SW remains available to follow. Plan: Home with [facility] SOC 05/25 SANDRA Duncan
[2025-05-22] MEDS: SACUBITRIL/VALSARTAN 24/26 MG TABLET 1 EACH PO (11:06)
[2025-05-22] MEDS: 0.9% Normal Saline (1000mL) 1,000 ML 60 ML IV (11:14)
--- NOTE | 2025-05-22 12:33 | PHA.DC_ITS ---
Pharmacy [facility] has performed discharge medication counseling for this patient. The patient was counseled on the following discharge medications and changes in medications for homegoing review. - Sucralfate suspension The Reason for Use, instructions for use, and potential side effects were reviewed for all new medications. The patient's questions regarding all of their medications were answered. The patient was able to verbally demonstrate an understanding of their discharge medications. Medications at Discharge Home Medications clopidogrel 75 mg tablet 75 mg PO DAILY anti platelet #30 tabs 02/03/23 pantoprazole 40 mg tablet,delayed release 40 mg PO DAILY reflux 04/18/23 sacubitril 24 mg-valsartan 26 mg tablet (Entresto) 1 tab PO BID .bp 30 days #60 tabs 05/07/23 atorvastatin 80 mg tablet 80 mg PO QHS cholesterol 12/29/23 gabapentin 300 mg capsule 300 mg PO TID nerve pain 12/29/23 cholecalciferol (vitamin D3) 1,250 mcg (50,000 unit) tablet 1,250 mcg PO WE supplement 02/14/24 escitalopram oxalate 20 mg tablet 20 mg PO DAILY depression 06/29/24 midodrine 2.5 mg tablet 2.5 mg PO DAILY blood pressure 06/29/24 polyethylene glycol 3350 17 gram/dose oral powder (Miralax) 17 g PO BID PRN constipation 06/29/24 tizanidine 4 mg tablet 4 mg PO TID spasm 06/29/24 sennosides 8.6 mg-docusate sodium 50 mg tablet (Stimulant Laxative Plus) 2 tab PO BID #60 tabs 09/16/24 metoclopramide HCl 10 mg tablet (Reglan) 10 mg PO Q6H PRN nausea and vomiting 5 days #20 tabs 09/21/24 nystatin 100,000 unit/gram topical powder 1 applic topical TID #0 grams 02/11/25 OXYGEN - Supplemental ([facility] INFORMATIONAL USE ONLY) Pulmonary Information 04/01/25 apixaban 5 mg tablet (Eliquis) 5 mg PO BID #60 tabs 04/11/25 empagliflozin 10 mg tablet (Jardiance) 10 mg PO DAILY #30 tabs 04/11/25 furosemide 40 mg tablet 40 mg PO DAILY #30 tabs 04/11/25 spironolactone 50 mg tablet 50 mg PO DAILY #30 tabs 04/11/25 acetaminophen 500 mg tablet 1,000 mg PO Q8 PAIN 05/19/25 carvedilol 6.25 mg tablet 6.25 mg PO BID 05/19/25 glucagon 1 mg solution for injection (Glucagon Emergency Kit) 1 mg IM PRN HYPOGLYCEMIA 05/19/25 insulin glargine-yfgn 100 unit/mL (3 mL) subcutaneous pen 20 unit subcut QHS 05/19/25 insulin lispro 100 unit/mL subcutaneous pen (Humalog KwikPen (U-100) Insulin) See Protocol subcut ACHS 05/19/25 lidocaine 5 % topical patch 1 patch topical BID PRN pain 05/19/25 melatonin 3 mg tablet 3 mg PO QHS PRN Insomnia 05/19/25 ondansetron HCl 4 mg tablet 4 mg PO Q8H PRN nausea and vomiting 05/19/25 sucralfate 100 mg/mL oral suspension 1 g (10 mL) PO TID 1 month #900 mL 05/22/25
--- NOTE | 2025-05-22 14:19 | CASEMGMT ---
Addendum entered by Arelis Ngo 05/22/25 14:45: [facility] declined. [facility] accepted. Original Note: Discharge Planning HH referral sent to [facility]. Arelis Ngo DC Planning Asst
[2025-05-22 14:46] VITALS: BP 102/63; PULSE 90; RESP 17; TEMP 36.8; O2SAT 98
[2025-05-22] MEDS: Lidocaine 5% Patch 1 PATCH TOPICAL (17:08)
[2025-05-22 19:36] VITALS: BP 118/68; PULSE 87; RESP 16; TEMP 36.6; O2SAT 100
--- NOTE | 2025-05-22 19:54 | NURSING ---
Pt escorted downstairs by [employer]. Pt stated that daughter was on the way to pick her up. Pt and daughter both had multiple reminders that the pt was to be picked up by 1929; pt repeatedly refused needing help with transportation services as her stated she would be here by 1929
--- NOTE | 2025-05-26 08:26 | CASEMGMT ---
Social Work- [facility] reports pt cancelled SOC Mon 05/25. Pt was rescheduled for 05/26. If pt cancels, C will not see pt or accept future referrals. SANDRA Duncan
--- NOTE | 2025-05-27 14:43 | CASEMGMT ---
Social Work- SW received call from [facility] who reports that met pt for SOC. Pt did not have any meds from d/c and was unaware of what meds she should be taking. When [facility] called PCP at [facility] for orders, Ama reports that they would not follow pt, as she has not attended a singular appointment in three years. [facility] updated pt that they can not see pt due to this. Pt can not be referred to [facility] until pt attends medical appointments to establish with consistent care. SANDRA Duncan
== END 2025-05-22 19:50 | disposition home health service (06) | DRG 249 ==
LOC: ED 20:41 → MS3 23:45
PROVIDERS: Admitting Provider Family Medicine; Emergency Provider Student in an Organized Health Care Education/Training Program; PCP Nurse Practitioner Family; Visit Provider Internal Medicine
DX: K52.9 Noninfective gastroenteritis and colitis, unspecified (principal); E27.8 Other specified disorders of adrenal gland; I50.42 Chronic combined systolic (congestive) and diastolic (congestive) heart failure; I11.0 Hypertensive heart disease with heart failure; E11.9 Type 2 diabetes mellitus without complications; F32.A Depression, unspecified; K76.0 Fatty (change of) liver, not elsewhere classified; E87.1 Hypo-osmolality and hyponatremia; Z79.4 Long term (current) use of insulin; I25.5 Ischemic cardiomyopathy; F17.210 Nicotine dependence, cigarettes, uncomplicated; E78.5 Hyperlipidemia, unspecified; I25.10 Atherosclerotic heart disease of native coronary artery without angina pectoris; K21.00 Gastro-esophageal reflux disease with esophagitis, without bleeding; K29.50 Unspecified chronic gastritis without bleeding; K44.9 Diaphragmatic hernia without obstruction or gangrene; F12.90 Cannabis use, unspecified, uncomplicated; M54.9 Dorsalgia, unspecified; R16.0 Hepatomegaly, not elsewhere classified; Z79.84 Long term (current) use of oral hypoglycemic drugs; Z83.3 Family history of diabetes mellitus; Z79.02 Long term (current) use of antithrombotics/antiplatelets; Z79.01 Long term (current) use of anticoagulants; Z86.711 Personal history of pulmonary embolism; Z86.718 Personal history of other venous thrombosis and embolism; G89.29 Other chronic pain; Z90.49 Acquired absence of other specified parts of digestive tract
CPT/HCPCS: 36415; 74177; 80048; 80053; 81001; 82274; 82803; 82962; 83605; 83630; 83690; 85025; 87493; 87506; 97162; 97166; 99285; 99406; Q9967; A4216; J2405